=== PATIENT | female | born 1980 | race Hispanic/Latino ===

== ENCOUNTER 2017-11-09 19:54 | Inpatient (IN) | payer OTHER ==
--- OUTSIDE RECORDS SUMMARY | 2017-11-09 19:57 | XMS REPORT | Clinical Summary ---
:1980 Author Organization [facility] Address [address] [place] [address] Care Team Providers Name Role Phone Amira Joyce Primary Care Provider Allergies No Known Allergies Current Medications Prescription Sig. Disp. Refills Start Date End Date Status metFORMIN Take 1,000 mg by 09/20/2015 Active (GLUCOPHAGE) 1000 MG mouth 2 (two) tablet times a day with meals. midodrine Take 5 mg by Active (PROAMATINE) 5 MG mouth 3 (three) tablet times a day. MULTIVITAMIN WITH Take 1 tablet by Active IRON (HAIR VITAMINS mouth daily. ORAL) MV,CA,MIN/IRON/FA/GUA Take by mouth. Active RANA/CAFF (ONE-A-DAY WOMEN'S ACTIVE ORAL) acetaminophen-codeine Take 1 tablet by 30 tablet 0 05/25/2017 06/24/2017 (TYLENOL WITH CODEINE mouth every 4 #3) 300-30 mg per (four) hours as tablet needed for moderate pain for up to 30 days. ibuprofen Take 1 tablet 30 tablet 0 05/25/2017 06/24/2017 (ADVIL,MOTRIN) 800 MG (800 mg total) tablet by mouth every 6 (six) hours as needed for mild pain for up to 30 days. nitrofurantoin, Take 1 capsule 5 capsule 0 05/25/2017 05/30/2017 macrocrystal-monohydr (100 mg total) ate, (MACROBID) 100 by mouth daily MG capsule for 5 days. Only while you have walters catheter nitrofurantoin, Take 1 capsule 7 capsule 0 05/26/2017 06/02/2017 macrocrystal-monohydr (100 mg total) ate, (MACROBID) 100 by mouth daily MG capsule for 7 days. Active Problems Problem Noted Date Pelvic pain in female 01/15/2016 Urge incontinence 01/07/2016 LLQ abdominal pain 09/25/2015 Urinary incontinence, mixed (Urge predominant) 09/25/2015 History of ovarian cyst 09/25/2015 Encounters Date Type Specialty Care Team Description 06/08/2017 Telephone Obstetrics and Avel, Gynecology Latoya Elise MD 05/27/2017 Clinical Support Urogynecology Lucila, Post-operative state SHAWNA Pennington (Primary Dx) 05/26/2017 Telephone Obstetrics and Avel Gynecology Latoya Elise MD 05/25/2017 Hospital Encounter Obstetrics and Avel, Gynecology Latoya Elise MD 05/25/2017 Procedure Pass Obstetrics and Gynecology 05/25/2017 Surgery Obstetrics and Avel, CYSTO, INSERTION OF Gynecology Latoya Butler MIDURETHRAL SLING, MD Arik RETROPUBIC APPROACH 05/24/2017 Anesthesia Event Obstetrics and Jatzlau, Gynecology [facility], RETAIL ADVISOR 05/24/2017 Telephone Urogynecology Avel, Latoya Elise MD 05/19/2017 Pre-Admit Testing Pre-Admission Avel, Preop testing Appointment Testing Latoya Butler (Primary Dx) MD Arik 05/19/2017 Office Visit Urogynecology Avel, CLIFFORD (stress urinary incontinence, female) (Primary Dx); Latoya Butler Urinary incontinence, mixed MD Arik 05/09/2017 Telephone Urogynecology Aditi Gaytan LVN 04/25/2017 Hospital Encounter Radiology Avel, Mixed stress and urge Latoya Butler urinary incontinence MD Arik 04/25/2017 Office Visit Urogynecology Avel, Mixed stress and urge urinary incontinence (Primary Dx); Latoya Butler Nocturia; MD Arik 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 Sex Assigned at Date Recorded Not on file Last Filed Vital Signs Vital Sign Reading Time Taken Blood Pressure 113/80 05/27/2017 9:12 AM [employer]FT [employer] Pulse 77 05/27/2017 9:12 AM [employer] Temperature 36.5 C (97.7 F) 05/27/2017 9:12 AM [employer] Respiratory Rate 16 05/25/2017 3:50 PM [employer] Oxygen Saturation 98% 05/25/2017 3:50 PM [employer]FT [employer]ER Inhaled Oxygen Concentration - - Weight 88.5 kg (195 lb) 05/27/2017 9:12 AM [employer] Height 162.6 cm (5' 4") 05/27/2017 9:12 AM [employer] Body Mass Index 33.47 05/27/2017 9:12 AM [employer]ER Plan of Treatment Health Maintenance Due Date Last Done Comments PAP SMEAR 1999 INFLUENZA VACCINE 02/08/2018 Implants Implanted Type Area Director Process Engineering Device Expiration Model / Identifier Date Serial / Lot Kit Nurostmltn Lead Tined 4 Elctrd Spaced 3mm 28cm - [id number] Cardiac Pacing N /A: [employer] 11/03/2019 [id number] / Implanted: 01/07/2016 (Quantity not on file) Leads or N/A NEUROMODULATION / Electrodes or [id number] Accessories Verifyexternal Neurostimulator(Includes 1 Belt) - [id number] Neurosurgical N/A: [employer] 12/07/2020 [id number] / Implanted: 01/07/2016 (Quantity not on file) Implants N/A NEUROMODULATION [id number] / [id number] Neurostimulator Imp Interstim Ii [id number] Nrechrgbl - [id number] - [id number] Neurosurgical Right: [employer] [facility] - 04/23/2017 [id number] / Implanted: Qty: 1 on 01/15/2016 by Latoya Vallecillo MD Implants Coccyx NEUROLOGICAL [id number] / [id number] Four Horse Hitch Driver Pt For Sacral Nuromodltn Interstim Icon - [id number] Neurosurgical N/ A: [employer] [facility] - [id number] / Implanted: Qty: 1 on 01/15/2016 by Latoya Vallecillo MD Implants N/A NEUROLOGICAL / Matrix Hmstc Floseal 5ml W/ Humn F2 - [id number] Surgical N/A: [id number] / Implanted: Qty: 1 on 05/25/2017 by Latoya Vallecillo MD Implants ; N/A BIOSCIENCE / Expanders; Extenders; Surgical Wires System Sling Mdurethrl Trnsvagnl Mesh Asmbly Advantage Fit - [id number] Urological N/A: BSC 04/18/2020 [id number] / Implanted: Qty: 1 on 05/25/2017 by Latoya Vallecillo MD Implants or N/A UROLOGY/GYNECOLO / Sets [id number] Procedures Procedure Name Priority Date/Time Associated Diagnosis Comments ANESTHESIA INTUBATION Routine 05/25/2017 12:14 PM [employer]CRAFT LO[employer]LLER Procedure Note - Monika Beaver, ACCOUNT SOLUTIONS ANALYST - 05/25/2017 12:14 PM AIRCRAFT LO[employer] CONTROLLER Airway Performed by: MONIKA BEAVER Authorized by: SUNSHINE CURRIE Location: OR Performed by: anesthesiologist Preoxygenated with 100% O2: Yes C-spine Precautions Maintained Throughout: Yes Mask Ventilation: Easy mask Final Airway Type: Supraglottic airway Final LMA: I-Gel LMA Size: 4 Number of Attempts at Approach: 1 CYSTO, INSERTION OF 05/25/2017 12:00 PM [employer]CRAFT LO[employer] CONTROLLER Mixed incontinence urge and MIDURETHRAL SLING, stress RETROPUBIC APPROACH after 11/08/2016 Results POC glucose (05/25/2017 2:25 PM)Only the most recent of2 resultswithin the time period is included. Component Value Ref Range POC glucose 112 (H) 65 - 99 mg/dL Comment: [facility] Notified RN Meter ID: [id number] Backing In Machine Tender: Moisés Castaneda Specimen Performing Laboratory [facility] DEPARTMENT OF PATHOLOGY AND GENOMIC MEDICINE [address] [place] [address] ECG Pre/Post Op (05/19/2017 1:44 PM) Component Value Ref Range Ventricular rate 75 Atrial rate 75 NH interval 126 QRSD interval 86 QT interval 394 QTC interval 439 P axis 1 44 QRS axis 1 77 T wave axis 20 EKG impression Normal sinus rhythm-Normal ECG-In automated comparison with ECG of 09-SEP-2016 07:10,-No significant change was found- Specimen Performing Laboratory [facility] [address] [place] [address] Urinalysis screen and microscopy, with reflex to culture (05/19/2017 12:29 PM) Component Value Ref Range Specimen site Clean catch Color, UA Straw Appearance, UA Clear Specific gravity, UA 1.015 1.001 - 1.035 pH, UA 5.0 5.0 - 8.5 Protein, UA 2+ (A) Negative Glucose, UA Negative Negative Ketones, UA Negative Negative Bilirubin, UA Negative Negative Blood, UA Negative Negative Nitrite, UA Negative Negative Urobilinogen, UA <2.0 <2.0 Leukocyte esterase, UA Negative Negative Epithelial cells, UA 2 /HPF WBC, UA None seen 0 - 4 /HPF RBC, UA 1 0 - 2 /HPF Bacteria, UA None seen None seen Yeast, UA None seen Yeast with pseudohyphae, UA None seen Specimen Performing Laboratory Urine [facility] DEPARTMENT OF PATHOLOGY AND GENOMIC MEDICINE [address] [place] [address] Estimated GFR (05/19/2017 12:29 PM) Component Value Ref Range GFR Non Af Amer >90 mL/min/1.73 m2 GFR Af Amer >90 mL/min/1.73 m2 Comment: Chronic kidney disease: <60 mL/min/1.73m2 Kidney failure: <15 mL/min/1.73m2 The estimated GFR is calculated from the IDMS-traceable Modification of Diet in Renal Disease Equation. The accuracy of the calculation is poor when the creatinine is normal. Calculated values >90 mL/min/1.73m2 are not reported. This equation has not been validated in children (<18 years), women, the elderly (>70 years), or ethnic groups other than Caucasians and Americans. Specimen Performing Laboratory Plasma specimen [facility] DEPARTMENT OF PATHOLOGY AND GENOMIC MEDICINE [address] [place] [address]178 CBC hemogram (05/19/2017 12:29 PM) Component Value Ref Range WBC 7.00 4.50 - 11.00 k/uL RBC 4.35 4.20 - 5.50 m/uL HGB 13.0 12.0 - 16.0 g/dL HCT 36.9 (L) 37.0 - 47.0 % MCV 84.8 82.0 - 100.0 fL MCH 29.9 27.0 - 34.0 pg MCHC 35.2 31.0 - 37.0 g/dL RDW - SD 41.1 37.0 - 55.0 fL MPV 9.9 8.8 - 13.2 fL Platelet count 211 150 - 400 k/uL Nucleated RBC 0.00 /100 WBC Specimen Performing Laboratory Blood [facility] PATHOLOGY AND [facility] MEDICINE [address] [place], [place] [id number] Urine culture (05/19/2017 12:29 PM) Component Value Ref Range Urine culture SEE COMMENTComment: Bacteriuria screen negative. Specimen Performing Laboratory Urine [facility] PATHOLOGY AND [facility] MEDICINE [address] [place] [address] Hemoglobin A1c (05/19/2017 12:29 PM) Component Value Ref Range Hemoglobin A1C 7.1 (H) 4.0 - 5.6 % Comment: HbA1c cutoffs for diagnosing diabetes: 4.0% - 5.6%=normal 5.7% - 6.4%=increased risk for diabetes (prediabetes) >=6.5%=diabetes Goals for glycemic control (ADA 2016) < 7.0%Target for non adults with diabetes. More or less stringent targets may be appropriate for individual patients. <7.5% Target for Children and adolescents with type 1 diabetes. Specimen Performing Laboratory Blood [facility] PATHOLOGY AND [address] [address] Basic metabolic panel (05/19/2017 12:29 PM) Component Value Ref Range Sodium 134 (L) 135 - 148 mEq/L Potassium 3.9 3.5 - 5.0 mEq/L Chloride 94 (L) 98 - 112 mEq/L CO2 21 (L) 24 - 31 mEq/L Anion gap 19 (H) 7 - 15 mEq/L Comment: Starting from October , anion gap calculation no longer incorporates potassium. Please note the change. BUN 17 6 - 20 mg/dL Creatinine 0.6 0.5 - 0.9 mg/dL Glucose 183 (H) 65 - 99 mg/dL Calcium 9.5 8.3 - 10.2 mg/dL Specimen Performing Laboratory Plasma specimen [facility] DEPARTMENT OF PATHOLOGY AND [facility] MEDICINE [address] [place] [address] XR Sacrum And Coccyx (04/25/2017 11:10 AM) Specimen [facility]forming [facility] [address] [place] [address] Narrative EXAMINATION:XR SACRUM AND COCCYX 3 views CLINICAL HISTORY:N39.46 Mixed incontinence, Interstim Lead position COMPARISON:None. FINDINGS: 1. There are postop changes with nerve stimulator wire projected in the area of the right S3 sacral foramen. The electrodes are projected just anterior to the sacrum. The electronic unit projects over the buttock on the right side. 2.There is no other significant finding. IMPRESSION: Postoperative changes as described above. [facility]-[id number] Procedure Note Hm Interface, Radiology Results Incoming - 04/25/2017 11:40 AM CDT EXAMINATION: XR SACRUM AND COCCYX 3 views CLINICAL HISTORY: N39.46 Mixed incontinence, Interstim Lead position COMPARISON: None. FINDINGS: 1. There are postop changes with nerve stimulator wire projected in the area of the right S3 sacral foramen. The electrodes are projected just anterior to the sacrum. The electronic unit projects over the buttock on the right side. 2. There is no other significant finding. IMPRESSION: Postoperative changes as described above. [facility]-[id number] after 11/08/2016 Insurance Payer Benefit Plan / Group Subscriber ID Type Phone Address [facility] UMR-[id number] MULTISTATE IEBP xxxxxxxxxxxx PPO
[2017-11-09] MEDS ORDERED: CIPROFLOXACIN 400mg IV 400 MG/200 ML BAG IV ONE (22:11)
[2017-11-09] MEDS ORDERED: NA CHLORIDE 0.9% 1,000 ML ONE ×2 (22:11→23:35)
[2017-11-09] MEDS ORDERED: FENTANYL CITR 100 MCG/2 ML ONE (22:11)
[2017-11-09] MEDS ORDERED: ONDANSETRON 4 MG/2 ML VIAL ONE (22:11)
[2017-11-09] MEDS ORDERED: FAMOTIDINE 20 MG/2 ML VIAL IV ONE (22:11)
[2017-11-09] MEDS ORDERED: METRONIDAZOLE 500mg IVPB 500 MG/100 ML BAG IV ONE (22:12)
[2017-11-09 22:37] LABS: Absolute Lymphocytes (CBC) 2.9 K/uL (0.7-4.9); Absolute Monocytes 0.5 K/uL (0.1-1.3); Absolute Neutrophil 3.9 K/uL (1.8-8.0); Basophils % 0.6 % (0-1.3); Eosinophils % 2.4 % (0-4.4); Hematocrit 36.8 % (36.0-45.0); Lymphocytes % 38.7 % (15.3-44.8); MCH 28.1 pg (27.0-35.0); MCV 83.8 fL (80-100); MPV 7.8 fL (7.6-11.3); Monocytes % 6.5 % (3.3-12.3); RBC Red Blood Cell Count 4.39 M/uL (3.86-4.86)
[2017-11-09 22:43] LABS: Protime INR 0.97
--- NOTE | 2017-11-09 22:51 | ER ---
Nurse's Notes [facility] Name: Valentina Franco Age: 37 yrs Sex: Female : 1980 Arrival Date: 11/09/2017 Time: 19:55 Bed 7 Private MD: Diagnosis: Abdominal tenderness;Vomiting;Acute pancreatitis-history;Hypokalemia;Other ovarian cysts;Diverticular disease of intestine;Type 2 diabetes mellitus;Hyperlipidemia, unspecified-hypertriglyceridemia Presentation: 11/09 20:13 Presenting complaint: Patient states: Epigastric pain that started yesterday. aj Transition of care: patient was not received from another setting of care. Onset of symptoms was November 08, 2017. Initial Sepsis Screen: Does the patient meet any 2 criteria? No. Patient's initial sepsis screen is negative. Does the patient have a suspected source of infection? No. Patient's initial sepsis screen is negative. Care prior to arrival: None. 20:13 Method Of Arrival: Ambulatory aj 20:13 Acuity: CYNTHIA 3 aj Triage Assessment: 20:15 General: Appears in no apparent distress. comfortable, Behavior is calm, cooperative, aj appropriate for age. Pain: Complains of pain in epigastric area Pain currently is 9 out of 10 on a pain scale. Neuro: Level of Consciousness is awake, alert, obeys commands, Oriented to person, place, time, situation, Appropriate for age. Respiratory: Airway is patent Respiratory effort is even, unlabored, Respiratory pattern is regular, symmetrical. GI: Abdomen is flat, non-distended, Reports nausea. Derm: Skin is intact, is healthy with good turgor, Skin is pink, warm \\T\\ dry. normal. SHOP FITTER: 20:15 LMP 09/24/2017 aj Historical: - Allergies: 20:15 No Known Allergies; aj - Home Meds: 20:15 metformin 1,000 mg Oral tr24 1 tab once daily for Type 2 Diabetes Mellitus [Active]; aj "faxiga" [Active]; - PMHx: 20:15 Depression; Diabetes - NIDDM; heart problems; High Cholesterol; aj - PSHx: 20:15 Cholecystectomy; Tonsillectomy; ; aj - Immunization history:: Adult Immunizations up to date. - Social history:: Smoking status: Patient/guardian denies using tobacco. - Family history:: not pertinent. Screenin:05 Abuse screen: Denies threats or abuse. Nutritional screening: No deficits noted. tl2 Tuberculosis screening: No symptoms or risk factors identified. Fall Risk None identified. Assessment: 22:05 General: Appears in no apparent distress. uncomfortable, Behavior is calm, cooperative, tl2 appropriate for age. General: Pt states pain is similar to last time she had pancreatitis. Pain: Complains of pain in epigastric area Pain does not radiate. Neuro: Level of Consciousness is awake, alert, obeys commands, Oriented to person, place, time, situation. Cardiovascular: Denies chest pain. Respiratory: Airway is patent Respiratory effort is even, unlabored, Respiratory pattern is regular, symmetrical. GI: Bowel sounds present X 4 quads. Abd is soft Abdomen is tender to palpation in epigastric area. GI: Reports nausea, vomiting. : No signs and/or symptoms were reported regarding the genitourinary system. Derm: Skin is pink, warm \\T\\ dry. 22:58 Reassessment: Patient appears in no apparent distress at this time. Patient and/or tl2 family updated on plan of care and expected duration. Pain level reassessed. Patient is alert, oriented x 3, equal unlabored respirations, skin warm/dry/pink. Pt finished contrast at 2230, CT notified. 11/10 07:00 General: Appears in no apparent distress. uncomfortable, Behavior is calm, cooperative, hj appropriate for age. Pain: Complains of pain in left upper quadrant and right upper quadrant and epigastric area Pain does not radiate. Neuro: Level of Consciousness is awake, alert, obeys commands, Oriented to person, place, time, situation. Cardiovascular: Denies chest pain. Respiratory: Airway is patent Respiratory effort is even, unlabored, Respiratory pattern is regular, symmetrical. GI: Bowel sounds present X 4 quads. Abd is soft Abdomen is tender to palpation Reports nausea, vomiting. : No signs and/or symptoms were reported regarding the genitourinary system. EENT: No signs and/or symptoms were reported regarding the EENT system. Derm: Skin is intact, Skin is pink, warm \\T\\ dry. Musculoskeletal: No signs and/or symptoms reported regarding the musculoskeletal system. Vital Signs: 11/09 20:15 BP 114 / 77; Pulse 100; Resp 18; Temp 98.0; Pulse Ox 97% on R/A; Weight 90.26 kg; aj Height 5 ft. 4 in. (162.56 cm); Pain 9/10; 23:17 BP 103 / 69; Pulse 67; Resp 18; Pulse Ox 99% on R/A; tl2 11/10 00:42 BP 128 / 88; Pulse 75; Resp 18; Pulse Ox 99% on R/A; mt 08:45 BP 96 / 59; Pulse 72; Resp 17; Pulse Ox 98% on R/A; mw2 11/09 20:15 Body Mass Index 34.16 (90.26 kg, 162.56 cm) aj ED Course: 11/09 19:55 Patient arrived in ED. am2 20:14 Triage completed. aj 20:15 Arm band placed on left wrist. Patient placed in waiting room. aj 21:35 Johan Giron MD is Attending Physician. [facility] 22:05 Lucila Ospina, PETE is Primary Nurse. tl2 22:05 Patient has correct armband on for positive identification. Bed in low position. Call tl2 light in reach. Side rails up X 1. 22:05 Inserted saline lock: 20 gauge in right antecubital area, using aseptic technique. tl2 Blood collected. 22:41 X-ray completed. Portable x-ray completed in exam room. Patient tolerated procedure kc2 well. 22:46 XRAY Chest (1 view) In Process Unspecified. EDMS 22:49 Symone Romano MD is Hospitalizing Provider. [facility] 11/10 04:23 No provider procedures requiring assistance completed. Patient admitted, IV remains in tl2 place. Administered Medications: 11/09 22:20 Drug: NS 0.9% 1000 ml Route: IV; Rate: 1 bolus; Site: right antecubital; tl2 23:41 Follow up: IV Status: Completed infusion; IV Intake: 1000ml tl2 22:20 Drug: fentaNYL (PF) 50 mcg Route: IVP; Site: right antecubital; tl2 23:00 Follow up: Response: No adverse reaction; Pain is decreased tl2 22:20 Drug: Zofran 4 mg Route: IVP; Site: right antecubital; tl2 23:00 Follow up: Response: No adverse reaction; Nausea is decreased tl2 22:20 Drug: Pepcid 20 mg Route: IVP; Site: right antecubital; tl2 23:45 Follow up: Response: No adverse reaction tl2 22:20 Drug: Flagyl 500 mg Volume: 100 ml; Route: IVPB; Rate: 200 ml/hr; Infused Over: 30 tl2 mins; Site: right antecubital; 23:40 Follow up: IV Status: Completed infusion tl2 23:41 Drug: Cipro 400 mg Volume: 200 ml; Route: IVPB; Infused Over: 60 mins; Site: right tl2 antecubital; 11/10 00:58 Follow up: IV Status: Completed infusion tl2 11/09 23:41 Drug: NS 0.9% 1000 ml Route: IV; Rate: 1 bolus; Site: right antecubital; tl2 11/10 00:58 Follow up: IV Status: Completed infusion; IV Intake: 1000ml tl2 02:53 Not Given (canceled by Hospitalist): NS 0.9% with KCl 20 mEq/L 1000 ml IV at 125 ml/hr tl2 continuous Point of Care Testing: Blood Glucose: 10:00 Blood Glucose: 93 mg/dL; hb Ranges: Intake: 11/09 23:41 IV: 1000ml; Total: 1000ml. tl2 11/10 00:58 IV: 1000ml; Total: 2000ml. tl2 Outcome: 11/09 22:50 Decision to Hospitalize by Provider. [facility] 11/10 04:23 Admitted to ER Hold. Please see [facility] for further documentation. tl2 Condition: stable Discharge instructions given to patient, Instructed on the need for admit. 14:26 Patient left the ED. hb Signatures: Dispatcher [employer] EDAshley Mcfarland, RN Johan Huff MD MD cha Joaquin, Henry, RN RN hj Baxter, Heather, RN RN hb Carr, Kelsie kc2 Lucila Ospina RN RN 2 Ashley Diaz am Paola Lau nv LomiraElena ramirez 2
--- NOTE | 2017-11-09 22:51 | EDPHYS ---
Physician Documentation [facility] Name: Valentina Franco Age: 37 yrs Sex: Female : 1980 Arrival Date: 11/09/2017 Time: 19:55 Bed 7 Private MD: Johan Larson HPI: 11/09 22:46 This 37 yrs old Female presents to ER via Ambulatory with complaints of young Abdominal Pain. 22:46 The patient presents with abdominal pain in the epigastric area, in the upper abdomen. young Onset: The symptoms/episode began/occurred 3 day(s) ago. The patient presents to the emergency department with nausea, vomiting, abdominal pain, of the epigastric area, right upper quadrant and left upper quadrant. Onset: The symptoms/episode began/occurred 1 day(s) ago. Possible causes: unknown. The symptoms are aggravated by nothing. The symptoms are alleviated by nothing. Associated signs and symptoms: The patient has no apparent associated signs or symptoms. STONEHAND: 20:15 LMP 09/24/2017 aj Historical: - Allergies: 20:15 No Known Allergies; aj - Home Meds: 20:15 metformin 1,000 mg Oral tr24 1 tab once daily for Type 2 Diabetes Mellitus [Active]; aj "faxiga" [Active]; - PMHx: 20:15 Depression; Diabetes - NIDDM; heart problems; High Cholesterol; aj - PSHx: 20:15 Cholecystectomy; Tonsillectomy; ; aj - Immunization history:: Adult Immunizations up to date. - Social history:: Smoking status: Patient/guardian denies using tobacco. - Family history:: not pertinent. ROS: 22:46 Constitutional: Negative for fever, chills, and weight loss, Eyes: Negative for injury, young pain, redness, and discharge, ENT: Negative for injury, pain, and discharge, Neck: Negative for injury, pain, and swelling, Cardiovascular: Negative for chest pain, palpitations, and edema, Respiratory: Negative for shortness of breath, cough, wheezing, and pleuritic chest pain, Back: Negative for injury and pain, : Negative for injury, bleeding, discharge, and swelling, MS/Extremity: Negative for injury and deformity, Skin: Negative for injury, rash, and discoloration, Neuro: Negative for headache, weakness, numbness, tingling, and seizure, Psych: Negative for depression, anxiety, suicide ideation, homicidal ideation, and hallucinations, Allergy/Immunology: Negative for hives, rash, and allergies, Endocrine: Negative for neck swelling, polydipsia, polyuria, polyphagia, and marked weight changes, Hematologic/Lymphatic: Negative for swollen nodes, abnormal bleeding, and unusual bruising. 22:46 Abdomen/GI: Positive for abdominal pain, nausea and vomiting, nausea, vomiting, of the epigastric area, right upper quadrant and left upper quadrant. Exam: 22:46 Constitutional: This is a well developed, well nourished patient who is awake, alert, young and in no acute distress. Head/Face: Normocephalic, atraumatic. Eyes: Pupils equal round and reactive to light, extra-ocular motions intact. Lids and lashes normal. Conjunctiva and sclera are non-icteric and not injected. Cornea within normal limits. Periorbital areas with no swelling, redness, or edema. ENT: Nares patent. No nasal discharge, no septal abnormalities noted. Tympanic membranes are normal and external auditory canals are clear. Oropharynx with no redness, swelling, or masses, exudates, or evidence of obstruction, uvula midline. Mucous membranes moist. Neck: Trachea midline, no thyromegaly or masses palpated, and no cervical lymphadenopathy. Supple, full range of motion without nuchal rigidity, or vertebral point tenderness. No Meningismus. Chest/axilla: Normal chest wall appearance and motion. Nontender with no deformity. No lesions are appreciated. Cardiovascular: Regular rate and rhythm with a normal S1 and S2. No gallops, murmurs, or rubs. Normal PMI, no JVD. No pulse deficits. Respiratory: Lungs have equal breath sounds bilaterally, clear to auscultation and percussion. No rales, rhonchi or wheezes noted. No increased work of breathing, no retractions or nasal flaring. Back: No spinal tenderness. No costovertebral tenderness. Full range of motion. Female : Normal external genitalia. Skin: Warm, dry with normal turgor. Normal color with no rashes, no lesions, and no evidence of cellulitis. MS/ Extremity: Pulses equal, no cyanosis. Neurovascular intact. Full, normal range of motion. Neuro: Awake and alert, GCS 15, oriented to person, place, time, and situation. Cranial nerves II-XII grossly intact. Motor strength 5/5 in all extremities. Sensory grossly intact. Cerebellar exam normal. Normal gait. Psych: Awake, alert, with orientation to person, place and time. Behavior, mood, and affect are within normal limits. 22:46 Abdomen/GI: Inspection: abdomen appears normal, Bowel sounds: normal, Palpation: mild abdominal tenderness, moderate abdominal tenderness, in the epigastric area, right upper quadrant and left upper quadrant, Liver: no appreciated palpable abnormalities, Hernia: not appreciated. Vital Signs: 20:15 BP 114 / 77; Pulse 100; Resp 18; Temp 98.0; Pulse Ox 97% on R/A; Weight 90.26 kg; aj Height 5 ft. 4 in. (162.56 cm); Pain 9/10; 23:17 BP 103 / 69; Pulse 67; Resp 18; Pulse Ox 99% on R/A; tl2 11/10 00:42 BP 128 / 88; Pulse 75; Resp 18; Pulse Ox 99% on R/A; mt 08:45 BP 96 / 59; Pulse 72; Resp 17; Pulse Ox 98% on R/A; mw2 11/09 20:15 Body Mass Index 34.16 (90.26 kg, 162.56 cm) aj MDM: 11/09 21:35 Patient medically screened. [facility] 22:46 Data reviewed: vital signs, nurses notes, lab test result(s), EKG, radiologic studies, [facility] scan, plain films. 11/09 22:04 Order name: Basic Metabolic Panel; Complete Time: 23:31 [facility] 11/09 22:04 Order name: BNP; Complete Time: 23:31 [facility] 11/09 22:04 Order name: CBC with Diff; Complete Time: 22:45 [facility] 11/09 22:04 Order name: Ckmb; Complete Time: 23:31 [facility] 11/09 22:04 Order name: CPK; Complete Time: 23:31 [facility] 11/09 22:04 Order name: LFT's; Complete Time: 23:31 [facility] 11/09 22:04 Order name: Magnesium; Complete Time: 23:31 [facility] 11/09 22:04 Order name: PT-INR; Complete Time: 23:31 [facility] 11/09 22:04 Order name: Ptt, Activated; Complete Time: 23:31 [facility] 11/09 22:04 Order name: Troponin (emerg Dept Use Only); Complete Time: 23:31 [facility] 11/09 22:04 Order name: Lipase; Complete Time: 23:31 [facility] 11/09 23:35 Order name: Urine Dipstick--Ancillary (enter results) rg2 11/09 23:35 Order name: Urine --Ancillary (enter results) rg2 11/10 00:24 Order name: Lipid Profile [facility] 11/10 01:57 Order name: Lipid Profile EDNY 11/10 02:01 Order name: Urine --Ancillary; Complete Time: 02:16 EDMS 11/10 02:01 Order name: Urine Dipstick-Ancillary; Complete Time: 02:16 EDMS 11/10 02:17 Order name: LDL, Direct EDMS 05 08:44 Order name: Triglycerides Level EDMS 11/10 09:28 Order name: LDL, Direct EDMS 05 10:24 Order name: Glucose, Ancillary Testing EDMS 11/10 10:24 Order name: Glucose, Ancillary Testing EDMS 11/10 10:24 Order name: Glucose, Ancillary Testing EDMS 11/10 10:24 Order name: Glucose, Ancillary Testing EDMS 11/10 10:24 Order name: Glucose, Ancillary Testing EDMS 11/10 10:24 Order name: Glucose, Ancillary Testing EDMS 11/10 10:24 Order name: Glucose, Ancillary Testing EDMS 11/10 10:24 Order name: Glucose, Ancillary Testing EDMS 11/10 11:06 Order name: Glucose, Ancillary Testing EDMS 11/10 12:03 Order name: Triglycerides Level EDMS 11/09 22:04 Order name: XRAY Chest (1 view); Complete Time: 23:31 [facility] 11/09 22:04 Order name: EKG; Complete Time: 22:05 [facility] 11/09 22:04 Order name: Cardiac monitoring; Complete Time: 22:20 [facility] 11/09 22:04 Order name: EKG - Nurse/Tech; Complete Time: 22:20 [facility] 11/09 22:04 Order name: IV Saline Lock; Complete Time: 22:20 [facility] 11/09 22:04 Order name: Labs collected and sent; Complete Time: 22:20 [facility] 11/09 22:04 Order name: O2 Per Protocol; Complete Time: 22:20 [facility] 11/09 22:04 Order name: O2 Sat Monitoring; Complete Time: 22:20 [facility] 11/09 22:04 Order name: Urine Dipstick-Ancillary (obtain specimen); Complete Time: 23:19 [facility] 11/09 22:04 Order name: CT Abd/Pelvis - W/Contrast [facility] 11/09 22:53 Order name: CONS Physician Consult [facility] 11/10 08:46 Order name: CT [facility] 11/10 12:24 Order name: LDL, Direct [facility]NY 11/10 13:12 Order name: Glucose, Ancillary Testing [facility] 11/10 14:14 Order name: Glucose, Ancillary Testing [facility]NY Administered Medications: 22:20 Drug: NS 0.9% 1000 ml Route: IV; Rate: 1 bolus; Site: right antecubital; tl2 23:41 Follow up: IV Status: Completed infusion; IV Intake: 1000ml tl2 22:20 Drug: fentaNYL (PF) 50 mcg Route: IVP; Site: right antecubital; tl2 23:00 Follow up: Response: No adverse reaction; Pain is decreased tl2 22:20 Drug: Zofran 4 mg Route: IVP; Site: right antecubital; tl2 23:00 Follow up: Response: No adverse reaction; Nausea is decreased tl2 22:20 Drug: Pepcid 20 mg Route: IVP; Site: right antecubital; tl2 23:45 Follow up: Response: No adverse reaction tl2 22:20 Drug: Flagyl 500 mg Volume: 100 ml; Route: IVPB; Rate: 200 ml/hr; Infused Over: 30 tl2 mins; Site: right antecubital; 23:40 Follow up: IV Status: Completed infusion tl2 23:41 Drug: Cipro 400 mg Volume: 200 ml; Route: IVPB; Infused Over: 60 mins; Site: right tl2 antecubital; 11/10 00:58 Follow up: IV Status: Completed infusion tl2 11/09 23:41 Drug: NS 0.9% 1000 ml Route: IV; Rate: 1 bolus; Site: right antecubital; tl2 11/10 00:58 Follow up: IV Status: Completed infusion; IV Intake: 1000ml tl2 02:53 Not Given (canceled by Hospitalist): NS 0.9% with KCl 20 mEq/L 1000 ml IV at 125 ml/hr tl2 continuous Point of Care Testing: Blood Glucose: 10:00 Blood Glucose: 93 mg/dL; hb Ranges: Critical Glucose Levels:Adult <50 mg/dl or >400 mg/dl <40 mg/dl or >180 mg/dl Disposition: 11/09/17 22:50 Hospitalization ordered by Symone Romano for Inpatient Admission. Preliminary diagnosis are Abdominal tenderness, Vomiting, Acute pancreatitis - history, Hypokalemia, Other ovarian cysts, Diverticular disease of intestine, Type 2 diabetes mellitus, Hyperlipidemia, unspecified - hypertriglyceridemia. - Bed requested for Intensive Care Unit. - Status is Inpatient Admission. hb - Condition is Fair. - Problem is new. - Symptoms have improved. UTI on Admission? No Signatures: Dispatcher [employer] EDMS Pal Dykes rg2 Katharina Astorga RN RN kl Myers, Amanda, RN RN aj Anderson, Corey, MD MD cha Gallardo, Ana ag Baxter, Heather, RN RN hb Knox, Taylor, RN RN tl2 Corrections: (The following items were deleted from the chart) 11/09 23:32 22:50 Hospitalization Ordered by Symone Romano MD for Inpatient Admission. Preliminary [facility] diagnosis is Abdominal tenderness; Vomiting; Acute pancreatitis. Bed requested for Telemetry/MedSurg (Inpatient). Status is Inpatient Admission. Condition is Fair. Problem is new. Symptoms have improved. UTI on Admission? No. young 11/10 00:08 11/09 23:32 11/09/2017 22:50 Hospitalization Ordered by Symone Romano MD for Inpatient kl Admission. Preliminary diagnosis is Abdominal tenderness; Vomiting; Acute pancreatitis - history; Hypokalemia. Bed requested for Telemetry/MedSurg (Inpatient). Status is Inpatient Admission. Condition is Fair. Problem is new. Symptoms have improved. UTI on Admission? No. young 11/10 01:14 00:08 11/09/2017 22:50 Hospitalization Ordered by Symone Romano MD for Inpatient young Admission. Preliminary diagnosis is Abdominal tenderness; Vomiting; Acute pancreatitis - history; Hypokalemia. Bed requested for Telemetry/MedSurg (Inpatient). Status is Inpatient Admission. Condition is Fair. Problem is new. Symptoms have improved. UTI on Admission? No. beny 01:24 01:14 11/09/2017 22:50 Hospitalization Ordered by Symone Romano MD for Inpatient young Admission. Preliminary diagnosis is Abdominal tenderness; Vomiting; Acute pancreatitis - history; Hypokalemia; Other ovarian cysts; Diverticular disease of intestine. Bed requested for Telemetry/MedSurg (Inpatient). Status is Inpatient Admission. Condition is Fair. Problem is new. Symptoms have improved. UTI on Admission? No. young 02:17 01:24 11/09/2017 22:50 Hospitalization Ordered by Symone Romano MD for Inpatient young Admission. Preliminary diagnosis is Abdominal tenderness; Vomiting; Acute pancreatitis - history; Hypokalemia; Other ovarian cysts; Diverticular disease of intestine; Type 2 diabetes mellitus. Bed requested for Telemetry/MedSurg (Inpatient). Status is Inpatient Admission. Condition is Fair. Problem is new. Symptoms have improved. UTI on Admission? No. young 02:19 02:17 11/09/2017 22:50 Hospitalization Ordered by Symone Romano MD for Inpatient young Admission. Preliminary diagnosis is Abdominal tenderness; Vomiting; Acute pancreatitis - history; Hypokalemia; Other ovarian cysts; Diverticular disease of intestine; Type 2 diabetes mellitus. Bed requested for Intensive Care Unit. Status is Inpatient Admission. Condition is Fair. Problem is new. Symptoms have improved. UTI on Admission? No. young 02:21 02:19 11/09/2017 22:50 Hospitalization Ordered by Symone Romano MD for Inpatient rg2 Admission. Preliminary diagnosis is Abdominal tenderness; Vomiting; Acute pancreatitis - history; Hypokalemia; Other ovarian cysts; Diverticular disease of intestine; Type 2 diabetes mellitus; Hyperlipidemia, unspecified - hypertriglyceridemia. Bed requested for Intensive Care Unit. Status is Inpatient Admission. Condition is Fair. Problem is new. Symptoms have improved. UTI on Admission? No. young 14:00 02:21 11/09/2017 22:50 Hospitalization Ordered by Symone Romano MD for Inpatient ag Admission. Preliminary diagnosis is Abdominal tenderness; Vomiting; Acute pancreatitis - history; Hypokalemia; Other ovarian cysts; Diverticular disease of intestine; Type 2 diabetes mellitus; Hyperlipidemia, unspecified - hypertriglyceridemia. Bed requested for [facility] ER HOLD. Status is Inpatient Admission. Condition is Fair. Problem is new. Symptoms have improved. UTI on Admission? No. rg2 14:26 14:00 11/09/2017 22:50 Hospitalization Ordered by Symone Romano MD for Inpatient hb Admission. Preliminary diagnosis is Abdominal tenderness; Vomiting; Acute pancreatitis - history; Hypokalemia; Other ovarian cysts; Diverticular disease of intestine; Type 2 diabetes mellitus; Hyperlipidemia, unspecified - hypertriglyceridemia. Bed requested for Intensive Care Unit. Status is Inpatient Admission. Condition is Fair. Problem is new. Symptoms have improved. UTI on Admission? No. ag
[2017-11-09] MEDS ORDERED: GLUCAGON 1 MG/VIAL IM PRN (22:53)
--- NOTE | 2017-11-09 22:55 | RAD REPORT ---
EXAM DESCRIPTION: RAD - Chest Single View - 11/09/2017 10:47 pm CLINICAL HISTORY: Chest and abdomen pain COMPARISON: 08/21/2017 FINDINGS: Portable technique limits examination quality. The lungs are grossly clear. The heart is normal in size. No displaced fractures. IMPRESSION: No acute intrathoracic process suspected.
[2017-11-09 23:05] LABS: ALT/SGPT 22 IU/L (10-60); AST/SGOT 18 IU/L (10-42); Alkaline Phosphatase 42 IU/L (42-121); BUN Blood Urea Nitrogen 26 mg/dL (6-20); Bicarbonate 20 mEq/L (21-31); Bilirubin Direct < 0.1 mg/dL (0-0.2); Bilirubin Total 1.4 mg/dL (0.3-1.2); CKMB Creatine Kinase MB 1.1 ng/ml (0.3-4.0); Creatine Phosphokinase 56 IU/L (22-269); Glucose Level 238 mg/dL (65-120); Lipase 45 U/L (22-51); Potassium 3.2 mEq/L (3.6-5.0); Protein, Total 7.3 g/dL (6.0-8.3); Sodium Level 132 mEq/L (135-145)
[2017-11-10] MEDS ORDERED: ONDANSETRON 4 MG/2 ML VIAL IV ONE (01:02)
[2017-11-10 01:54] LABS: HDL Cholesterol 30 mg/dL (29-89)
[2017-11-10 01:56] LABS: LDL Cholesterol, Calculated ND (<130)
[2017-11-10 02:00] LABS: Urine Blood TRACE (NEG); Urine Glucose 2+ (NEG); Urine Protein TRACE (NEG); Urine pH 5.5 (5.0-7.0)
[2017-11-10] MEDS ORDERED: NS KCL 20MEQ 20 MEQ/1,000 ML BAG IV SCH (02:00)
[2017-11-10] MEDS: NA CHLORIDE 0.9% 1,000 ML IV SCH ×2 (02:00→12:00)
[2017-11-10 02:17] LABS: LDL, Direct 21 mg/dl (<130)
[2017-11-10] MEDS ORDERED: INSULIN -REGULAR HUMAN 50 UNIT/0.5 ML ML ONE ×2 (02:33→21:01)
[2017-11-10] MEDS ORDERED: NA CHLORIDE 0.9% 100 ML IV ONE (02:33)
[2017-11-10] MEDS ORDERED: D5 0.9 NS 1,000 ML IV ONE ×2 (02:42→13:14)
[2017-11-10] MEDS: INSULIN -REGULAR HUMAN 100 UNIT in NA CHLORIDE 0.9% 100 ML IV SCH ×3 (02:54→21:30)
--- NOTE | 2017-11-10 03:02 | P.HP ---
Certification for Inpatient Patient admitted to: Inpatient With expected LOS: >2 Midnights Practitioner: I am a practitioner with admitting privileges, knowledge of patient current condition, hospital course, and medical plan of care. Services: Services provided to patient in accordance with Admission requirements found in Title 42 Section 412.3 of the Code of Federal Regulations Patient History Date of Service: 11/10/17 Reason for admission: pancreatitis History of Present Illness: Ms Franco is a 37 years old with history of DM II, hypertriglyceridemia induce pancreatitis, who start yesterday with severe abdominal pain. The pain is localized in her LUQ, it is constant associated with nausea and vomiting, intensity 10/10. She states that had fever at home. In ED temp was normal. Lab work shows normal WBC count, but triglycerides significantly elevated, 2140. She states that is taking Fenofibrate as indicated. Allergies No Known Allergies Allergy (Verified 09/16/17 03:51) Home Medications: Metformin HCl 1,000 mg PO BID 09/16/17 Fenofibrate [Tricor*] 145 mg PO DAILY #30 tab 09/19/17 - Past Medical/Surgical History Diabetic: Yes -: DIABETIC TYPE II -: CHOLESTEROL -: DEPRESSION -: hernia repair -: heart ablation -: broke foot -: tonsillectomy -: KATTY -: X3 - Family History Mother -: Diabetes - Social History Smoking Status: Never smoker Alcohol use: No CD- Drugs: No Caffeine use: Yes Place of Residence: Home Review of Systems 10-point ROS is otherwise unremarkable Physical Examination - Physical Exam General: Alert, In no apparent distress HEENT: Atraumatic, PERRLA, Mucous membr. moist/pink, EOMI, Sclerae nonicteric Neck: Supple, 2+ carotid pulse no bruit, No LAD, Without JVD or thyroid abnormality Respiratory: Clear to auscultation bilaterally, Normal air movement Cardiovascular: Regular rate/rhythm, Normal S1 S2 Gastrointestinal: Normal bowel sounds, Tenderness (LUQ) Musculoskeletal: No tenderness Integumentary: No rashes Neurological: Normal speech, Normal strength at 5/5 x4 extr, Normal tone, Normal affect Lymphatics: No axilla or inguinal lymphadenopathy - Studies Laboratory Data (last 24 hrs) 11/09/17 22:00: PT 11.5, INR 0.97, APTT 24.7 11/09/17 22:00: WBC 7.6, Hgb 12.3, Hct 36.8, Plt Count 261 11/09/17 22:00: B-Natriuretic Peptide < 10 11/09/17 22:00: Sodium 132 L, Potassium 3.2 L, BUN 26 H, Creatinine 1.00, Glucose 238 H, Magnesium 2.0, Total Bilirubin 1.4 H, AST 18, ALT 22, Alkaline Phosphatase 42, Lipase 45 Assessment and Plan - Problems (Diagnosis) (1) Hypertriglyceridemia Current Visit: Yes Status: Acute (2) pancreatitis due to hypertriglyceridemia Current Visit: Yes Status: Acute - Plan The patient will be admitted to the hospital due to hypertriclyceridemia induce pancreatitis. CT report is pending, lipase normal, however, typical clinical presentation. Triglyceride level 2100's. Will order insulin drip to decreases triglyceride level below 1000, ideally bellow 500. Will resume fenofibrate. Will keep the patient NPO, start D5NS continuous infusion. - Advance Directives Does patient have a Living Will: No Does patient have a Durable POA for Healthcare: No - Code Status/Comfort Care Code Status Assessed: Yes Code Status: Full Code Critical Care: Yes (30 minutes critical care management)
[2017-11-10] MEDS ORDERED: D5 0.9 NS 1,000 ML IV SCH (04:00)
--- NOTE | 2017-11-10 06:40 | EKG ---
Test Date: 2017-11-09 Test Time: 22:15:06 Racket Stringer: MICHAEL MEASUREMENT RESULTS: Intervals: Rate: 73 MN: 160 QRSD: 90 QT: 390 QTc: 429 Darrow: P: 52 MN: 160 QRS: 79 T: 47 INTERPRETIVE STATEMENTS: Normal sinus rhythm Normal ECG Compared to ECG 08/21/2017 18:26:50 Sinus tachycardia no longer present Electronically Signed On 11-10-17 06:39:01 CDT by Tres Salazar
[2017-11-10] MEDS ORDERED: INSULIN -REGULAR HUMAN 50 UNIT/0.5 ML ML SQ SCH (07:30)
[2017-11-10] MEDS ORDERED: MORPHINE 4 MG/ML SYR IV PRN (07:48)
[2017-11-10] MEDS ORDERED: ENOXAPARIN 40 MG/0.4 ML SQ ONE (07:58)
[2017-11-10] MEDS: ENOXAPARIN 40 MG/0.4 ML SQ SCH (08:02)
--- NOTE | 2017-11-10 08:45 | RAD REPORT ---
EXAM DESCRIPTION: CTAbdomen Pelvis W Contrast - 11/10/2017 8:37 am CLINICAL HISTORY: Abdominal pain. COMPARISON: 09/15/2017, 08/21/2017 TECHNIQUE: Biphasic CT imaging of the abdomen and pelvis was performed with 100 ml non-ionic IV cont rast. All CT scans are performed using dose optimization technique as appropriate and may include automated exposure control or mA/KV adjustment according to patient size. FINDINGS: The lung bases are clear. Diffuse fatty liver infiltration is noted. Cholecystectomy clips are seen. The spleen, pancreas, adre nal glands and kidneys are within normal limits. No bowel obstruction, free air, free fluid or abscess. Sigmoid diverticulosis coli is present without diverticulitis. The appendix is normal. No evidence of significant lymphadenopathy. No suspicious bony findings. 4 cm right ovarian cyst noted. IMPRESSION: Diffuse fatty liver infiltration. Sigmoid diverticulosis coli without diverticulitis.
[2017-11-10 09:28] LABS: LDL, Direct 19 mg/dl (<130)
[2017-11-10 12:24] LABS: LDL, Direct 39 mg/dl (<130)
[2017-11-10] MEDS ORDERED: ACETAMINOPHEN 500 MG TAB ONE (13:16)
[2017-11-10] MEDS: ACETAMINOPHEN 500 MG TAB PO PRN ×2 (13:57→19:34)
[2017-11-10] MEDS ORDERED: Morphine 2 MG/2 ML SYR IV PRN (15:05)
[2017-11-10 15:18] VITALS: O2SAT 99
[2017-11-10] MEDS ORDERED: Ringers Lactate 500 ML IV ONE (15:33)
[2017-11-10] MEDS: D50W 25 GM/50 ML SYRINGE IV PRN ×5 (16:03→23:00)
[2017-11-10] MEDS: ONDANSETRON 4 MG/2 ML VIAL IV PRN (16:08)
[2017-11-10] MEDS: FENOFIBRATE 160 MG TAB PO SCH (16:08)
[2017-11-10] MEDS ORDERED: POTASSIUM CL SA 10 MEQ TAB PO ONE (16:26)
[2017-11-10] MEDS ORDERED: NA CHLORIDE 0.9% 100 ML ONE (21:01)
[2017-11-10] MEDS: DEXTROSE 10%-WATER 500 ML IV SCH (21:46)
[2017-11-10 23:10] LABS: Potassium 3.2 mEq/L (3.6-5.0)
[2017-11-10] MEDS ORDERED: D50W 25 GM/50 ML SYRINGE IV ONE ×3 (23:10→23:45)
[2017-11-11] MEDS ORDERED: POTASSIUM CL SA 10 MEQ TAB PO ONE ×2 (01:25→10:04)
[2017-11-11] MEDS: D50W 25 GM/50 ML SYRINGE IV PRN ×10 (01:50→22:38)
[2017-11-11] MEDS: DEXTROSE 10%-WATER 500 ML IV SCH ×5 (03:11→22:39)
[2017-11-11] MEDS ORDERED: INSULIN -REGULAR HUMAN 50 UNIT/0.5 ML ML ONE (03:25)
[2017-11-11] MEDS ORDERED: NA CHLORIDE 0.9% 100 ML ONE (03:25)
[2017-11-11] MEDS: INSULIN -REGULAR HUMAN 100 UNIT in NA CHLORIDE 0.9% 100 ML IV SCH ×2 (04:21→08:36)
[2017-11-11 05:40] LABS: Absolute Lymphocytes (CBC) 1.9 K/uL (0.7-4.9); Absolute Monocytes 0.5 K/uL (0.1-1.3); Absolute Neutrophil 2.7 K/uL (1.8-8.0); Basophils % 0.9 % (0-1.3); Eosinophils % 2.5 % (0-4.4); Hematocrit 31.3 % (36.0-45.0); Lymphocytes % 36.1 % (15.3-44.8); MCV 82.8 fL (80-100); MPV 7.5 fL (7.6-11.3); Monocytes % 10.1 % (3.3-12.3); RBC Red Blood Cell Count 3.79 M/uL (3.86-4.86)
[2017-11-11 05:54] LABS: BUN Blood Urea Nitrogen 9 mg/dL (6-20); Bicarbonate 24 mEq/L (21-31); Glucose Level 93 mg/dL (65-120); Potassium 3.3 mEq/L (3.6-5.0); Sodium Level 139 mEq/L (135-145)
[2017-11-11] MEDS ORDERED: D50W 25 GM/50 ML SYRINGE IV ONE (06:44)
[2017-11-11] MEDS: ENOXAPARIN 40 MG/0.4 ML SQ SCH (08:36)
[2017-11-11] MEDS: ONDANSETRON 4 MG/2 ML VIAL IV PRN (08:41)
[2017-11-11] MEDS ORDERED: INSULIN -REGULAR HUMAN 100 UNIT in NA CHLORIDE 0.9% 100 ML IV SCH (09:51)
[2017-11-11] MEDS: ACETAMINOPHEN 500 MG TAB PO PRN (11:26)
--- NOTE | 2017-11-11 11:42 | P.PN ---
Subjective Date of Service: 11/11/17 Chief Complaint: pancreatitis Subjective: Improving (pain better this am. wants to go home), Other (had some nausea but improved with anti emetics, no vomiting) Review of Systems 10-point ROS is otherwise unremarkable Physical Examination - Vital Signs Temperature: 98.6 F Blood Pressure: 94/59 Pulse: 66 Respirations: 14 Pulse Ox (%): 96 - Physical Exam General: Alert, In no apparent distress, Oriented x3 HEENT: Atraumatic, Normocephalic, PERRLA Neck: Supple, JVD not distended, No Thyromegaly, No LAD Respiratory: Clear to auscultation bilaterally, Normal air movement Cardiovascular: No edema, Normal pulses, Regular rate/rhythm, Normal S1 S2 Gastrointestinal: Normal bowel sounds, Soft and benign, Non-distended, W/out hepatosplenomegaly, No tenderness, No masses, No rebound, No guarding Neurological: Normal strength at 5/5 x4 extr Assessment And Plan - Current Problems (Diagnosis) (1) pancreatitis due to hypertriglyceridemia Onset Date: 11/10/17 Current Visit: Yes Status: Acute Plan: Triglyceride level down to ~1000's. continue insulin drip to decreases triglyceride level below below 500. decrease dose to 9units/hr continue fenofibrate. Will keep the patient NPO, start D5NS continuous infusion pain control as needed hypoglycemic protocol Discharge Plan: Home Physician Review: Patient Assessed, Agree with Above Assessment and Plan Time Spent Managing PTS Care (In Minutes): 35
[2017-11-11 12:00] LABS: LDL, Direct 58 mg/dl (<130)
[2017-11-11] MEDS: FENOFIBRATE 160 MG TAB PO SCH (16:36)
[2017-11-11 18:49] VITALS: BMI 36.3
[2017-11-11] MEDS ORDERED: TRAZODONE 50 MG TABLET PO ONE (22:42)
[2017-11-11 23:39] LABS: Potassium 3.3 mEq/L (3.6-5.0)
[2017-11-12] MEDS ORDERED: POTASSIUM CL SA 10 MEQ TAB PO ONE (01:00)
[2017-11-12] MEDS: D50W 25 GM/50 ML SYRINGE IV PRN (04:26)
[2017-11-12] MEDS: DEXTROSE 10%-WATER 500 ML IV SCH ×2 (04:26→08:01)
[2017-11-12 07:15] VITALS: BP 111/76
[2017-11-12] MEDS: ENOXAPARIN 40 MG/0.4 ML SQ SCH (07:59)
[2017-11-12 08:38] VITALS: TEMP 97.6
--- NOTE | 2017-11-12 15:30 | P.DS ---
Admission Date: 11/09/17 Discharge Date: 11/12/17 Disposition: AMA-LEFT AGAINST MEDICAL ADVIC Reason for Admission: pancreatitis - Problems (1) pancreatitis due to hypertriglyceridemia Onset Date: 11/10/17 Status: Acute Brief History of Present Illness: Ms Franco is a 37 years old with history of DM II, hypertriglyceridemia induce pancreatitis, who start yesterday with severe abdominal pain. The pain is localized in her LUQ, it is constant associated with nausea and vomiting, intensity 10/10. She states that had fever at home. In ED temp was normal. Lab work shows normal WBC count, but triglycerides significantly elevated, 2140. She states that is taking Fenofibrate as indicated Hospital Course: Patient was started on insulin drip and her TG levels were monitored.Her symptoms improved significantly.Patient decided to leave the hospital AMA due to family commitment.Risks were explained to her and she stated her understanding and signed AMA Vital Signs/Physical Exam: Temp Pulse Resp BP Pulse Ox 97.6 F 82 13 111/76 98 11/12/17 08:00 11/12/17 08:00 11/12/17 08:00 11/12/17 07:00 11/12/17 07:00 General: Alert, In no apparent distress, Oriented x3 HEENT: Atraumatic, Normocephalic, PERRLA Neck: Supple, JVD not distended, No Thyromegaly, No LAD Respiratory: Clear to auscultation bilaterally, Normal air movement Cardiovascular: No edema, Normal pulses, Regular rate/rhythm, No gallops, No rubs, No murmurs Gastrointestinal: Normal bowel sounds, Soft and benign, W/out hepatosplenomegaly , No ascites, No tenderness, No masses, No rebound Musculoskeletal: No clubbing, No swelling, No contractures, No erythema, No tenderness, No warmth Neurological: Normal speech, Normal strength at 5/5 x4 extr, Normal tone, Sensation intact Laboratory Data at Discharge: WBC 5.4 K/uL (4.3-10.9) D 11/11/17 05:00 Hgb 10.6 g/dL (12.0-15.0) L 11/11/17 05:00 Hct 31.3 % (36.0-45.0) L 11/11/17 05:00 Plt Count 230 K/uL (152-406) 11/11/17 05:00 PT 11.5 SECONDS (9.5-12.5) 11/09/17 22:00 INR 0.97 11/09/17 22:00 APTT 24.7 SECONDS (24.3-36.9) 11/09/17 22:00 Sodium 139 mEq/L (135-145) 11/11/17 05:00 Potassium 3.3 mEq/L (3.6-5.0) L 11/11/17 23:01 BUN 9 mg/dL (6-20) 11/11/17 05:00 Creatinine 0.67 mg/dL (0.44-1.00) 11/11/17 05:00 Glucose 93 mg/dL (65-120) 11/11/17 05:00 Phosphorus Cancelled 11/12/17 06:38 Magnesium 2.0 mg/dL (1.8-2.5) 11/09/17 22:00 Total Bilirubin 1.4 mg/dL (0.3-1.2) H 11/09/17 22:00 AST 18 IU/L (10-42) 11/09/17 22:00 ALT 22 IU/L (10-60) 11/09/17 22:00 Alkaline Phosphatase 42 IU/L (42-121) 11/09/17 22:00 B-Natriuretic Peptide < 10 pg/ml (<=100) 11/09/17 22:00 Triglycerides 666 mg/dL (35-160) H 11/11/17 23:01 Cholesterol 417 mg/dL (<200) H 11/10/17 00:24 LDL Cholesterol Direct 79 mg/dl (<130) 11/11/17 23:01 HDL Cholesterol 30 mg/dL (29-89) 11/10/17 00:24 Cholesterol/HDL Ratio 13.90 11/10/17 00:24 Lipase 45 U/L (22-51) 11/09/17 22:00 Home Medications: Metformin HCl 1,000 mg PO BID 09/16/17 Fenofibrate [Tricor*] 145 mg PO DAILY #30 tab 09/19/17 Dapagliflozin Propanediol [Farxiga] 10 mg PO DAILY 11/10/17 Trazodone HCl 100 mg PO BEDTIME PRN PRN 11/11/17 Patient Discharge Instructions: left AMA
[2017-11-12] MEDS ORDERED: TRAZODONE 50 MG TABLET PO ONE (22:04)
== END 2017-11-12 08:57 | disposition left against medical advice (07) | DRG 440 ==
LOC: ER 19:54 → ERHOLD 22:56 → 2ND 11-10 00:34 → ERHOLD 11-10 00:34 → 3RD-ICU 11-10 14:00
PROVIDERS: ADMIT Internal Medicine; ATTEND Internal Medicine
DX: K85.90 Acute pancreatitis without necrosis or infection, unspecified (principal); E78.1 Pure hyperglyceridemia; E11.9 Type 2 diabetes mellitus without complications
CPT/HCPCS: 36415; 71045; 74177; 80048; 80061; 80076; 81003; 81025; 82550; 82553; 82962; 83690; 83735; 83880; 84132; 84478; 84484; 85025; 85610; 85730; 93005; 96365; 96366; 96367; 96375; 99285; J0744; J1650; J2270; J2405; J3010; J7030; Q9967

== ENCOUNTER 2018-01-17 15:06 | Emergency (ER) | payer OTHER ==
--- OUTSIDE RECORDS SUMMARY | 2018-01-17 15:08 | XMS REPORT | Clinical Summary ---
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 Sex Assigned at Date Recorded Not on file Last Filed Vital Signs Vital Sign Reading Time Taken Blood Pressure 113/80 05/27/2017 9:12 AM [facility] Pulse 77 05/27/2017 9:12 AM [facility] Temperature 36.5 C (97.7 F) 05/27/2017 9:12 AM [facility] Respiratory Rate 16 05/25/2017 3:50 PM [facility] Oxygen Saturation 98% 05/25/2017 3:50 PM [facility] Inhaled Oxygen Concentration - - Weight 88.5 kg (195 lb) 05/27/2017 9:12 AM [facility] Height 162.6 cm (5' 4") 05/27/2017 9:12 AM [facility] Body Mass Index 33.47 05/27/2017 9:12 AM [facility] Plan of Treatment Health Maintenance Due Date Last Done Comments CERVICAL CANCER SCREENING 1999 INFLUENZA VACCINE 02/08/2018 Implants Implanted Type Area Peripatologist Device Expiration Model / Identifier Date Serial / Lot Kit Nurostmltn Lead Tined 4 Elctrd Spaced 3mm 28cm - [id number] Cardiac Pacing N /A: [employer] 11/03/2019 [id number] / Implanted: 01/07/2016 (Quantity not on file) Leads or N/A NEUROMODULATION / Electrodes or [id number] Accessories Verifyexternal Neurostimulator(Includes 1 Belt) - [id number] Neurosurgical N/A: [employer] 12/07/2020 [id number] / Implanted: 01/07/2016 (Quantity not on file) Implants N/A NEUROMODULATION [id number] / [id number] Neurostimulator Imp Interstim Ii [id number] Nrechrgbl - [id number] - [id number] Neurosurgical Right: [employer] [facility] - 04/23/2017 [id number] / Implanted: Qty: 1 on 01/15/2016 by Latoya Vallecillo MD Implants Coccyx NEUROLOGICAL [id number] / 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 Sacral Nuromodltn Interstim Icon - [id number] Neurosurgical N/ A: [employer] [facility] - [id number] / Implanted: Qty: 1 on 01/15/2016 by Latoya Vallecillo MD Implants N/A NEUROLOGICAL / Matrix [facility] Floseal 5ml W/ Humn F2 - [id number] Surgical N/A: [id number] / Implanted: Qty: 1 on 05/25/2017 by Latoya Vallecillo MD Implants ; N/A BIOSCIENCE / Expanders; Extenders; Surgical Wires System Sling urethrl Trnsvagnl Mesh Asmbly Advantage Fit - [id number] Urological N/A: BSC 04/18/2020 [id number] / Implanted: Qty: 1 on 05/25/2017 by Latoya Vallecillo MD Implants or N/A UROLOGY/GYNECOLO / Sets [id number] Procedures Procedure Name Priority Date/Time Associated Comments Diagnosis POC GLUCOSE Routine 05/25/2017 2:25 PM Results for this [facility] procedure are in the results section. ANESTHESIA Routine 05/25/2017 12:14 PM INTUBATION [facility] Procedure Note - Monika Bevaer CRNA - 05/25/2017 12:14 PM [facility] Airway Performed by: MONIKA BEAVER Authorized by: SUNSHINE CURRIE Location: OR Performed by: anesthesiologist Preoxygenated with 100% O2: Yes C-spine Precautions Maintained Throughout: Yes Mask Ventilation: Easy mask Final Airway Type: Supraglottic airway Final LMA: I-Gel LMA Size: 4 Number of Attempts at Approach: 1 SLING, PUBOVAGINAL 05/25/2017 12:00 PM Mixed incontinence [facility] urge and stress POC GLUCOSE Routine 05/25/2017 11:48 AM Results for this [facility] procedure are in the results section. ECG PRE/POST OP Routine 05/19/2017 1:44 PM Preop testing Results for this [facility] procedure are in the results section. ESTIMATED GFR Routine 05/19/2017 12:29 PM Results for this [facility] procedure are in the results section. HEMOGLOBIN A1C Routine 05/19/2017 12:29 PM Preop testing Results for this [facility] procedure are in the results section. URINALYSIS SCREEN Routine 05/19/2017 12:29 PM Preop testing Results for this AND MICROSCOPY, WITH [facility] procedure are in REFLEX TO CULTURE the results section. CBC HEMOGRAM Routine 05/19/2017 12:29 PM Preop testing Results for this [facility] procedure are in the results section. BASIC METABOLIC Routine 05/19/2017 12:29 PM Preop testing Results for this PANEL [facility] procedure are in the results section. URINE CULTURE Routine 05/19/2017 12:29 PM Results for this [facility] procedure are in the results section. XR SACRUM AND COCCYX Routine 04/25/2017 11:10 AM Mixed stress and urge Results for this CDT urinary incontinence procedure are in the results section. after 01/16/2017 Results POC glucose (05/25/2017 2:25 PM)Only the most recent of2 resultswithin the time period is included. POC glucose 112 (H) 65 - 99 mg/dL [facility] DEPARTMENT OF PATHOLOGY AND Comment: GENOMIC MEDICINE [facility] Notified RN Meter ID: [id number] Butcher Meat: Moisés Castaneda Performing Organization Address [facility] Phone Number [facility] DEPARTMENT OF PATHOLOGY AND [address] [place] [id number] [facility] ECG Pre/Post Op (05/19/2017 1:44 PM) Ventricular rate 75 [facility] M[facility] Atrial rate 75 [facility] TX interval 126 [facility] QRSD interval 86 [facility] QT interval 394 [facility] QTC interval 439 [facility] P axis 1 44 [facility] MUSE QRS axis 1 77 [facility] T wave axis 20 [facility] EKG impression Normal sinus rhythm-Normal ECG-In automated [facility] comparison with ECG of 09-SEP-2016 07:10,-No significant change was found- Performing Organization Address [facility] Phone Number [facility] [address] [place] [address] Urinalysis screen and microscopy, with reflex to culture (05/19/2017 12:29 PM) Specimen site Clean catch [facility] DEPARTMENT OF PATHOLOGY AND GENOMIC MEDICINE Color, UA Straw [facility] DEPARTMENT OF PATHOLOGY AND GENOMIC MEDICINE Appearance, UA Clear [facility] DEPARTMENT OF PATHOLOGY AND GENOMIC MEDICINE Specific gravity, UA 1.015 1.001 - 1.035 [facility] DEPARTMENT OF PATHOLOGY AND GENOMIC MEDICINE pH, UA 5.0 5.0 - 8.5 [facility] DEPARTMENT OF PATHOLOGY AND GENOMIC MEDICINE Protein, UA 2+ (A) Negative [facility] DEPARTMENT OF PATHOLOGY AND GENOMIC MEDICINE Glucose, UA Negative Negative [facility] DEPARTMENT OF PATHOLOGY AND GENOMIC MEDICINE Ketones, UA Negative Negative [facility] DEPARTMENT OF PATHOLOGY AND GENOMIC MEDICINE Bilirubin, UA Negative Negative [facility] DEPARTMENT OF PATHOLOGY AND GENOMIC MEDICINE Blood, UA Negative Negative [facility] DEPARTMENT OF PATHOLOGY AND GENOMIC MEDICINE Nitrite, UA Negative Negative [facility] DEPARTMENT OF PATHOLOGY AND GENOMIC MEDICINE Urobilinogen, UA <2.0 <2.0 [facility] DEPARTMENT OF PATHOLOGY AND GENOMIC MEDICINE Leukocyte esterase, UA Negative Negative [facility] DEPARTMENT OF PATHOLOGY AND GENOMIC MEDICINE Epithelial cells, UA 2 /HPF [facility] DEPARTMENT OF PATHOLOGY AND GENOMIC MEDICINE WBC, UA None seen 0 - 4 /HPF [facility] DEPARTMENT OF PATHOLOGY AND GENOMIC MEDICINE RBC, UA 1 0 - 2 /HPF [facility] DEPARTMENT OF PATHOLOGY AND GENOMIC MEDICINE Bacteria, UA None seen None seen [facility] DEPARTMENT OF PATHOLOGY AND GENOMIC MEDICINE Yeast, UA None seen [facility] DEPARTMENT OF PATHOLOGY AND GENOMIC MEDICINE Yeast with pseudohyphae, UA None seen [facility] DEPARTMENT OF PATHOLOGY AND GENOMIC MEDICINE Specimen Urine Performing Organization Address City/[facility] Phone Number [facility] DEPARTMENT OF PATHOLOGY AND [address] [phone] [facility] Estimated GFR (05/19/2017 12:29 PM) GFR Non Af Amer >90 mL/min/1.73 m2 [facility] DEPARTMENT OF PATHOLOGY AND GENOMIC MEDICINE GFR Af Amer >90 mL/min/1.73 m2 [facility] DEPARTMENT OF Comment: PATHOLOGY AND GENOMIC Chronic kidney disease: <60 mL/min/1.73m2 MEDICINE Kidney failure: <15 mL/min/1.73m2 The estimated GFR is calculated from the IDMS-traceable Modification of Diet in Renal Disease Equation. The accuracy of the calculation is poor when the creatinine is normal. Calculated values >90 mL/min/1.73m2 are not reported. This equation has not been validated in children (<18 years), women, the elderly (>70 years), or ethnic groups other than Caucasians and Americans. Specimen Plasma specimen Performing Organization Address City/State/[facility] Phone Number [facility] DEPARTMENT OF PATHOLOGY AND [address] [place] [address] [facility] CBC hemogram (05/19/2017 12:29 PM) WBC 7.00 4.50 - 11.00 k/uL [facility] DEPARTMENT OF PATHOLOGY AND GENOMIC MEDICINE RBC 4.35 4.20 - 5.50 m/uL [facility] DEPARTMENT OF PATHOLOGY AND GENOMIC MEDICINE HGB 13.0 12.0 - 16.0 g/dL [facility] DEPARTMENT OF PATHOLOGY AND GENOMIC MEDICINE HCT 36.9 (L) 37.0 - 47.0 % [facility] DEPARTMENT OF PATHOLOGY AND GENOMIC MEDICINE MCV 84.8 82.0 - 100.0 fL [facility] DEPARTMENT OF PATHOLOGY AND GENOMIC MEDICINE MCH 29.9 27.0 - 34.0 pg [facility] DEPARTMENT OF PATHOLOGY AND GENOMIC MEDICINE MCHC 35.2 31.0 - 37.0 g/dL [facility] DEPARTMENT OF PATHOLOGY AND GENOMIC MEDICINE RDW - SD 41.1 37.0 - 55.0 fL [facility] DEPARTMENT OF PATHOLOGY AND GENOMIC MEDICINE MPV 9.9 8.8 - 13.2 fL [facility] DEPARTMENT OF PATHOLOGY AND GENOMIC MEDICINE Platelet count 211 150 - 400 k/uL [facility] DEPARTMENT OF PATHOLOGY AND GENOMIC MEDICINE Nucleated RBC 0.00 /100 WBC [facility] DEPARTMENT OF PATHOLOGY AND GENOMIC MEDICINE Specimen Blood Performing Organization Address City/[facility] Phone Number [facility] DEPARTMENT OF PATHOLOGY AND [address] [place] [address] Urine culture (05/19/2017 12:29 PM) Urine culture SEE COMMENTComment: Bacteriuria [facility] DEPARTMENT OF PATHOLOGY screen negative. AND [facility] Specimen Urine Performing Organization Address City/[facility] Phone Number [facility] DEPARTMENT OF PATHOLOGY AND [address] [place], [place] [phone] [facility] Hemoglobin A1c (05/19/2017 12:29 PM) Hemoglobin A1C 7.1 (H) 4.0 - 5.6 % [facility] DEPARTMENT OF PATHOLOGY Comment: AND [facility] HbA1c cutoffs for diagnosing diabetes: 4.0% - 5.6%=normal 5.7% - 6.4%=increased risk for diabetes (prediabetes) >=6.5%=diabetes Goals for glycemic control (ADA 2016) < 7.0%Target for non adults with diabetes. More or less stringent targets may be appropriate for individual patients. <7.5% Target for Children and adolescents with type 1 diabetes. Specimen Blood Performing Organization Address City/[facility]/Zipcode Phone Number [facility] DEPARTMENT OF PATHOLOGY AND [address] [place] [phone] [facility] Basic metabolic panel (05/19/2017 12:29 PM) Sodium 134 (L) 135 - 148 mEq/L [facility] DEPARTMENT OF PATHOLOGY AND GENOMIC MEDICINE Potassium 3.9 3.5 - 5.0 mEq/L [facility] DEPARTMENT OF PATHOLOGY AND GENOMIC MEDICINE Chloride 94 (L) 98 - 112 mEq/L [facility] DEPARTMENT OF PATHOLOGY AND GENOMIC MEDICINE CO2 21 (L) 24 - 31 mEq/L [facility] DEPARTMENT OF PATHOLOGY AND GENOMIC MEDICINE Anion gap 19 (H) 7 - 15 mEq/L [facility] DEPARTMENT OF PATHOLOGY Comment: AND [facility] Starting from October , anion gap calculation no longer incorporates potassium. Please note the change. BUN 17 6 - 20 mg/dL [facility] DEPARTMENT OF PATHOLOGY AND GENOMIC MEDICINE Creatinine 0.6 0.5 - 0.9 mg/dL [facility] DEPARTMENT OF PATHOLOGY AND GENOMIC MEDICINE Glucose 183 (H) 65 - 99 mg/dL [facility] DEPARTMENT OF PATHOLOGY AND GENOMIC MEDICINE Calcium 9.5 8.3 - 10.2 mg/dL [facility] DEPARTMENT OF PATHOLOGY AND GENOMIC MEDICINE Specimen Plasma specimen Performing Organization Address City/[facility] Phone Number [facility] DEPARTMENT OF PATHOLOGY AND [address] [phone] [facility] XR Sacrum And Coccyx (04/25/2017 11:10 AM) Narrative Performed At EXAMINATION:XR SACRUM AND COCCYX [facility] 3 views CLINICAL HISTORY:N39.46 Mixed incontinence, Interstim Lead position COMPARISON:None. FINDINGS: 1. There are postop changes with nerve stimulator wire projected in the area of the right S3 sacral foramen. The electrodes are projected just anterior to the sacrum. The electronic unit projects over the buttock on the right side. 2.There is no other significant finding. IMPRESSION: Postoperative changes as described above. [facility]-[id number] Procedure Note Interface, Radiology Results Incoming - 04/25/2017 11:40 [...] finding. IMPRESSION: Postoperative changes as described above. [facility]-[id number] Performing Organization Address City/State/Zipcode Phone Number [facility] [address] [place] [address] after 01/16/2017 Insurance Payer Benefit Plan / Group Subscriber ID Type Phone Address [facility] UMR-L MULTISTATE IEBP xxxxxxxxxxxx PPO
[2018-01-17] MEDS ORDERED: NA CHLORIDE 0.9% 1,000 ML ONE (16:34)
[2018-01-17] MEDS ORDERED: ONDANSETRON 4 MG/2 ML VIAL ONE (16:34)
[2018-01-17] MEDS ORDERED: FAMOTIDINE 20 MG/2 ML VIAL IV ONE (16:34)
[2018-01-17 16:36] LABS: Absolute Lymphocytes (CBC) 2.4 K/uL (0.7-4.9); Absolute Monocytes 0.6 K/uL (0.1-1.3); Basophils % 1.4 % (0-1.3); Eosinophils % 1.1 % (0-4.4); Hematocrit 38.9 % (36.0-45.0); Lymphocytes % 33.6 % (15.3-44.8); MCH 28.7 pg (27.0-35.0); MCV 82.3 fL (80-100); MPV 7.7 fL (7.6-11.3); Monocytes % 8.5 % (3.3-12.3); RBC Red Blood Cell Count 4.73 M/uL (3.86-4.86)
[2018-01-17 16:38] LABS: Urine Blood NEGATIVE (NEG); Urine Glucose 2+ (NEG); Urine Protein TRACE (NEG)
[2018-01-17 17:11] LABS: ALT/SGPT 48 U/L (12-78); AST/SGOT 36 U/L (15-37); Albumin 4.4 g/dL (3.4-5.0); Alkaline Phosphatase 45 U/L (45-117); BUN Blood Urea Nitrogen 28 mg/dL (7-18); Bicarbonate 24 mmol/L (21-32); Bilirubin Direct < 0.1 mg/dL (0-0.2); Bilirubin Total 0.4 mg/dL (0.2-1.0); Glucose Level 167 mg/dL (74-106); Lipase 298 U/L (73-393); Potassium 3.9 mmol/L (3.5-5.1); Protein, Total 8.8 g/dL (6.4-8.2); Sodium Level 138 mmol/L (136-145)
[2018-01-17 17:38] LABS: Urine Bacteria <20 /HPF (<20); Urine Culture Reflex Order NOT NEEDED; Urine RBC <5 /HPF (NONE SEEN)
--- NOTE | 2018-01-17 18:08 | RAD REPORT ---
EXAM DESCRIPTION: CT - Stone Protocol - 01/17/2018 5:40 pm CLINICAL HISTORY: Abdominal pain. Upper abdominal pain with nausea and vomiting for 2 days COMPARISON: November 2017 TECHNIQUE: Computed axial tomography of the abdomen pelvis was obtained without oral or IV contrast. Lack of IV and oral contrast limits evaluation of solid organs, bowel, and vessels. Coronal reformat faith images were obtained and reviewed. All CT scans are performed using dose optimization technique as appropriate and may include automated exposure control or mA/KV adjustment according to patient size. FINDINGS: A 2 millimeter right renal calculus is present. Hydronephrosis is not seen. A left uretera l calculus is not noted. A left renal calculus is not seen. The liver has a diminished attenuation cyst with fatty infiltration. Spleen, pancreas and adrenals appear grossly normal There is no evidence of diverticulitis. The appendix appears normal A neurostimulator device is in place. IMPRESSION: 2 millimeter nonobstructing right renal calculus
[2018-01-17] MEDS ORDERED: PROMETHAZINE 25 MG/ML VIAL ONE (18:14)
[2018-01-17] MEDS ORDERED: MORPHINE 4 MG/ML SYR ONE (18:14)
--- NOTE | 2018-01-17 19:00 | ER ---
Nurse's Notes [facility] Name: Valentina Franco Age: 37 yrs Sex: Female : 1980 Arrival Date: 01/17/2018 Time: 15:07 Bed 14 Private MD: None, None Diagnosis: Vomiting;Generalized abdominal pain;Dehydration Presentation: 01/17 15:41 Presenting complaint: Patient states: Patient reports upper abdominal pain and N/V for aj 2 days. Transition of care: patient was not received from another setting of care. Onset of symptoms was January 15, 2018. Risk Assessment: Do you want to hurt yourself or someone else? Patient reports no desire to harm self or others. Initial Sepsis Screen: Does the patient meet any 2 criteria? No. Patient's initial sepsis screen is negative. Does the patient have a suspected source of infection? No. Patient's initial sepsis screen is negative. Care prior to arrival: None. 15:41 Method Of Arrival: Ambulatory aj 15:41 Acuity: CYNTHIA 3 aj Triage Assessment: 15:43 General: Appears in no apparent distress. uncomfortable, Behavior is calm, cooperative, aj appropriate for age. Pain: Complains of pain in right upper quadrant and left upper quadrant. Neuro: Level of Consciousness is awake, alert, obeys commands, Oriented to person, place, time, situation, Appropriate for age. Respiratory: Airway is patent Respiratory effort is even, unlabored, Respiratory pattern is regular, symmetrical. GI: Reports upper abdominal pain, nausea, vomiting. Derm: Skin is intact, is healthy with good turgor, Skin is pink, warm \\T\\ dry. normal. 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 - Social history:: Smoking status: Patient/guardian denies using tobacco, Patient uses alcohol, on a daily basis. - Ebola Screening: : Patient negative for fever greater than or equal to 101.5 degrees Fahrenheit, and additional compatible Ebola Virus Disease symptoms Patient denies exposure to infectious person Patient denies travel to an Ebola-affected area in the 21 days before illness onset No symptoms or risks identified at this time. Screenin:04 Abuse screen: Denies threats or abuse. Denies injuries from another. Nutritional bp screening: No deficits noted. Tuberculosis screening: No symptoms or risk factors identified. Fall Risk None identified. Assessment: 15:45 General: Appears uncomfortable, Behavior is calm, cooperative, Reports fever for 12-24 rb1 hours, 101.7 fever at home. Pain: Complains of pain in umbilical area and right lower quadrant Pain currently is 9 out of 10 on a pain scale. Neuro: Level of Consciousness is awake, alert, obeys commands, Oriented to person, place, time, situation. Cardiovascular: Capillary refill < 3 seconds is brisk in bilateral fingers. Respiratory: Airway is patent Respiratory effort is even, unlabored, Respiratory pattern is regular, symmetrical. GI: Bowel sounds present X 4 quads. Abd is soft Abdomen is tender to palpation in umbilical area and right lower quadrant. : No signs and/or symptoms were reported regarding the genitourinary system. Derm: Skin is pink, warm \\T\\ dry. 16:40 Reassessment: Patient appears in no apparent distress at this time. No changes from rb1 previously documented assessment. 17:38 Reassessment: Patient appears in no apparent distress at this time. Patient and/or rb1 family updated on plan of care and expected duration. Pain level reassessed. Patient is alert, oriented x 3, equal unlabored respirations, skin warm/dry/pink. 18:22 Reassessment: Patient appears in no apparent distress at this time. Patient and/or rb1 family updated on plan of care and expected duration. Pain level reassessed. Patient is alert, oriented x 3, equal unlabored respirations, skin warm/dry/pink. 19:00 Reassessment: RECD REPORT FROM LEONIE FREEMAN. 37YO HF P/W ABD PAIN AFTER ETOH CONSUMPTION. bp ALL CURRENT ORDERS COMPLETED, IVF INFUSING. 19:30 Reassessment: PT NOW ESPOUSING H/O POTS, D/C ON HOLD FOR FURTHER TREATMENT. bp 20:15 Reassessment: PT D/C HOME AMBULATORY, DX WITH GEN ABD PAIN AND VOMITING. bp Vital Signs: 15:43 BP 121 / 78; Pulse 129; Resp 20; Temp 97.5; Pulse Ox 97% on R/A; Weight 84.82 kg; aj Height 5 ft. 4 in. (162.56 cm); 16:30 BP 118 / 92; Pulse 100; Resp 19; Pulse Ox 98% on R/A; rb1 17:30 BP 111 / 75; Pulse 99; Resp 18; Pulse Ox 99% on R/A; rb1 18:00 BP 110 / 65; Pulse 102; Resp 19; Pulse Ox 99% on R/A; rb1 19:00 BP 122 / 82; Pulse 108; Resp 16; Pulse Ox 97% on R/A; bp 19:30 BP 109 / 56; Pulse 98; Resp 16; Pulse Ox 100% ; bp 20:00 BP 122 / 72; Pulse 85; Resp 14; Pulse Ox 99% ; bp 15:43 Body Mass Index 32.10 (84.82 kg, 162.56 cm) ED Course: 15:07 Patient arrived in ED. mr 15:08 None, None is Private Physician. mr 15:42 Triage completed. aj 15:43 Arm band placed on left wrist. Patient placed in an exam room. aj 15:46 Kris Sorenson MD is Attending Physician. gs 15:50 Lisa Bolivar, RN is Primary Nurse. rb1 17:31 Patient moved to [place] via wheelchair. nj 17:40 CT completed. Patient tolerated procedure well. Patient moved back from [place]. nj 17:40 CT Stone Protocol In Process Unspecified. EDMS 17:55 IV discontinued. dh3 17:56 Inserted saline lock: 20 gauge in left antecubital area, using aseptic technique. dh3 19:00 Report given to PETE Wilkins. rb1 19:04 Patient has correct armband on for positive identification. Bed in low position. Call bp light in reach. Side rails up X2. 19:21 Franky Smith, RN is Primary Nurse. bp 20:24 No provider procedures requiring assistance completed. IV discontinued, intact, bp bleeding controlled, No redness/swelling at site. Pressure dressing applied. Administered Medications: 16:30 Drug: NS 0.9% 1000 ml Route: IV; Rate: 1 bolus; Site: right antecubital; rb1 16:30 Drug: Zofran 4 mg Route: IVP; Site: right antecubital; rb1 16:45 Follow up: Response: No adverse reaction; Nausea is decreased rb1 16:30 Drug: Pepcid 20 mg Route: IVP; Site: right antecubital; rb1 16:45 Follow up: Response: No adverse reaction rb1 18:20 Drug: Phenergan 25 mg Route: IVP; Site: left antecubital; rb1 19:05 Follow up: Response: Nausea is decreased bp 18:20 Drug: morphine 4 mg Route: IVP; Site: left antecubital; rb1 19:06 Follow up: Response: Pain is decreased bp 19:30 Drug: NS 0.9% 1000 ml Route: IV; Rate: 1 bolus; Site: left antecubital; bp 20:05 Follow up: IV Status: Completed infusion; IV Intake: 1000ml bp 19:30 Drug: NS 0.9% 1000 ml Route: IV; Rate: 1 bolus; Site: left antecubital; bp 20:23 Follow up: IV Status: Completed infusion; IV Intake: 1000ml bp 19:45 Drug: HydroCORTISONE 100 mg Route: IVP; Site: left antecubital; bp 20:23 Follow up: Response: No adverse reaction bp Point of Care Testing: Blood Glucose: 16:18 Blood Glucose: 158 mg/dL; rb1 Ranges: Intake: 20:05 IV: 1000ml; Total: 1000ml. bp 20:23 IV: 1000ml; Total: 2000ml. bp Outcome: 19:00 Discharge ordered by . gs 20:24 Discharged to home ambulatory. bp 20:24 Condition: stable 20:24 Discharge instructions given to patient, Instructed on discharge instructions, follow up and referral plans. medication usage, Demonstrated understanding of instructions, follow-up care, medications, Prescriptions given X 2. 20:35 Discharge ordered by . gs 20:44 Patient left the ED. bp Signatures: Dispatcher [employer] EDMS Ashley Browning RN RN aj Rivera, Maria mr Barber, Rebecca, RN RN rb1 Juvencio Cole [facility] Kris Sorenson MD MD gs Peltier, Brian, RN RN bp Corrections: (The following items were deleted from the chart) 18:32 16:30 BP 113 / 59; Pulse 65bpm; Resp 19bpm; Pulse Ox 95%; rb1 rb1 18:32 17:30 BP 121 / 58; Pulse 65bpm; Resp 20bpm; Pulse Ox 93% RA; rb1 rb1 19:22 19:00 Reassessment: RECD REPORT FROM YOU FREEMAN. 37YO HF P/W ABD PAIN AFTER ETOH bp CONSUMPTION. ALL CURRENT ORDERS COMPLETED, IVF INFUSING bp 20:22 19:30 BP 90 / 56; Pulse 98bpm; Resp 16bpm; Pulse Ox 100%; bp bp
--- NOTE | 2018-01-17 19:00 | EDPHYS ---
Physician Documentation [facility] Name: Valentina Franco Age: 37 yrs Sex: Female : 1980 Arrival Date: 01/17/2018 Time: 15:07 Bed 14 Private MD: None, None ED Physician Kris Sorenson HPI: 01/17 18:51 This 37 yrs old Female presents to ER via Ambulatory with complaints of gs Abdominal Pain. 18:51 The patient presents to the emergency department with nausea, vomiting. Onset: The gs symptoms/episode began/occurred yesterday. Possible causes: unknown. The symptoms are aggravated by nothing. The symptoms are alleviated by nothing. Associated signs and symptoms: Pertinent positives: abdominal pain, Pertinent negatives: fever. Severity of symptoms: At their worst the symptoms were severe in the emergency department the symptoms have improved markedly. The patient has experienced similar episodes in the past, several times. The patient has not recently seen a physician. 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 - Social history:: Smoking status: Patient/guardian denies using tobacco, Patient uses alcohol, on a daily basis. - Ebola Screening: : Patient negative for fever greater than or equal to 101.5 degrees Fahrenheit, and additional compatible Ebola Virus Disease symptoms Patient denies exposure to infectious person Patient denies travel to an Ebola-affected area in the 21 days before illness onset No symptoms or risks identified at this time. ROS: 18:51 All other systems are negative. gs Exam: 18:51 Head/Face: Normocephalic, atraumatic. Eyes: Pupils equal round and reactive to light, gs extra-ocular motions intact. Lids and lashes normal. Conjunctiva and sclera are non-icteric and not injected. Cornea within normal limits. Periorbital areas with no swelling, redness, or edema. ENT: Nares patent. No nasal discharge, no septal abnormalities noted. Tympanic membranes are normal and external auditory canals are clear. Oropharynx with no redness, swelling, or masses, exudates, or evidence of obstruction, uvula midline. Mucous membranes moist. Neck: Trachea midline, no thyromegaly or masses palpated, and no cervical lymphadenopathy. Supple, full range of motion without nuchal rigidity, or vertebral point tenderness. No Meningismus. Chest/axilla: Normal chest wall appearance and motion. Nontender with no deformity. No lesions are appreciated. Cardiovascular: Regular rate and rhythm with a normal S1 and S2. No gallops, murmurs, or rubs. Normal PMI, no JVD. No pulse deficits. Respiratory: Lungs have equal breath sounds bilaterally, clear to auscultation and percussion. No rales, rhonchi or wheezes noted. No increased work of breathing, no retractions or nasal flaring. Back: No spinal tenderness. No costovertebral tenderness. Full range of motion. Skin: Warm, dry with normal turgor. Normal color with no rashes, no lesions, and no evidence of cellulitis. MS/ Extremity: Pulses equal, no cyanosis. Neurovascular intact. Full, normal range of motion. Neuro: Awake and alert, GCS 15, oriented to person, place, time, and situation. Cranial nerves II-XII grossly intact. Motor strength 5/5 in all extremities. Sensory grossly intact. Cerebellar exam normal. Normal gait. 18:51 Constitutional: The patient appears alert, awake. 18:51 Abdomen/GI: Palpation: moderate abdominal tenderness, in the right upper quadrant and right lower quadrant, rebound tenderness, is not appreciated. Vital Signs: 15:43 BP 121 / 78; Pulse 129; Resp 20; Temp 97.5; Pulse Ox 97% on R/A; Weight 84.82 kg; aj Height 5 ft. 4 in. (162.56 cm); 16:30 BP 118 / 92; Pulse 100; Resp 19; Pulse Ox 98% on R/A; rb1 17:30 BP 111 / 75; Pulse 99; Resp 18; Pulse Ox 99% on R/A; rb1 18:00 BP 110 / 65; Pulse 102; Resp 19; Pulse Ox 99% on R/A; rb1 19:00 BP 122 / 82; Pulse 108; Resp 16; Pulse Ox 97% on R/A; bp 19:30 BP 109 / 56; Pulse 98; Resp 16; Pulse Ox 100% ; bp 20:00 BP 122 / 72; Pulse 85; Resp 14; Pulse Ox 99% ; bp 15:43 Body Mass Index 32.10 (84.82 kg, 162.56 cm) aj MDM: 15:53 Patient medically screened. gs 18:51 Differential diagnosis: pancreatitis, appendicitis, diverticulitis, viral gs gastroenteritis, gastroenteritis. Data reviewed: vital signs, nurses notes. Response to treatment: the patient's symptoms have markedly improved after treatment, and as a result, I will discharge patient. 01/17 15:59 Order name: Basic Metabolic Panel; Complete Time: 17:48 01/17 15:59 Order name: CBC with Diff; Complete Time: 17:48 01/17 15:59 Order name: Hepatic Function; Complete Time: 17:48 01/17 15:59 Order name: Lipase; Complete Time: 17:48 01/17 15:59 Order name: Urine Microscopic Only; Complete Time: 17:48 01/17 16:29 Order name: Urine Dipstick--Ancillary (enter results); Complete Time: 17:48 01/17 16:29 Order name: Urine --Ancillary (enter results); Complete Time: 17:48 01/17 17:04 Order name: CT Stone Protocol; Complete Time: 18:10 01/17 19:16 Order name: Troponin (emerg Dept Use Only); Complete Time: 20:35 01/17 15:59 Order name: IV Saline Lock; Complete Time: 16:19 01/17 15:59 Order name: Labs collected and sent; Complete Time: 16:19 01/17 15:59 Order name: Urine Dipstick-Ancillary (obtain specimen); Complete Time: 16:20 01/17 19:16 Order name: EKG; Complete Time: 19:16 01/17 19:16 Order name: EKG - Nurse/Tech; Complete Time: 19:47 gs Administered Medications: 16:30 Drug: NS 0.9% 1000 ml Route: IV; Rate: 1 bolus; Site: right antecubital; rb1 16:30 Drug: Zofran 4 mg Route: IVP; Site: right antecubital; rb1 16:45 Follow up: Response: No adverse reaction; Nausea is decreased rb1 16:30 Drug: Pepcid 20 mg Route: IVP; Site: right antecubital; rb1 16:45 Follow up: Response: No adverse reaction rb1 18:20 Drug: Phenergan 25 mg Route: IVP; Site: left antecubital; rb1 19:05 Follow up: Response: Nausea is decreased bp 18:20 Drug: morphine 4 mg Route: IVP; Site: left antecubital; rb1 19:06 Follow up: Response: Pain is decreased bp 19:30 Drug: NS 0.9% 1000 ml Route: IV; Rate: 1 bolus; Site: left antecubital; bp 20:05 Follow up: IV Status: Completed infusion; IV Intake: 1000ml bp 19:30 Drug: NS 0.9% 1000 ml Route: IV; Rate: 1 bolus; Site: left antecubital; bp 20:23 Follow up: IV Status: Completed infusion; IV Intake: 1000ml bp 19:45 Drug: HydroCORTISONE 100 mg Route: IVP; Site: left antecubital; bp 20:23 Follow up: Response: No adverse reaction bp Point of Care Testing: Blood Glucose: 16:18 Blood Glucose: 158 mg/dL; rb1 Ranges: Critical Glucose Levels:Adult <50 mg/dl or >400 mg/dl <40 mg/dl or >180 mg/dl Disposition: 01/17/18 20:35 Discharged to Home. Impression: Vomiting, Generalized abdominal pain, Dehydration. - Condition is Stable. - Discharge Instructions: Abdominal Pain, Adult, Nausea and Vomiting. - Medication Reconciliation Form, Thank You Letter, Antibiotic Education, Prescription Opioid Use form. - Follow up: Private Physician; When: 2 - 3 days; Reason: Re-evaluation by your physician. Signatures: Dispatcher [employer] Ashley Driscoll RN RN aj Barber, Rebecca, RN RN rb1 Kris Sorenson MD MD gs Peltier, Brian, RN RN bp Corrections: (The following items were deleted from the chart) 19:16 19:00 01/17/2018 19:00 Discharged to Home. Impression: Vomiting; Generalized abdominal gs pain. Condition is Stable. Forms are Medication Reconciliation Form, Thank You Letter, Antibiotic Education, Prescription Opioid Use. Follow up: Private Physician; When: 2 - 3 days; Reason: Re-evaluation by your physician. allen 20:44 20:35 01/17/2018 20:35 Discharged to Home. Impression: Vomiting; Generalized abdominal bp pain; Dehydration. Condition is Stable. Prescriptions for Zofran 4 mg Oral Tablet - take 1 tablet by ORAL route every 12 hours As needed; 6 tablet, promethazine 25 mg Oral Tablet - take 1 tablet by ORAL route every 6 hours As needed; 12 tablet. and Forms are Medication Reconciliation Form, Thank You Letter, Antibiotic Education, Prescription Opioid Use. Follow up: Private Physician; When: 2 - 3 days; Reason: Re-evaluation by your physician.
[2018-01-17] MEDS ORDERED: NA CHLORIDE 0.9% 2,000 ML ONE (19:34)
[2018-01-17] MEDS ORDERED: HYDROCORTISONE SUC 100 MG INJ ONE (19:52)
[2018-01-17 20:55] VITALS: TEMP 97.5
[2018-01-17 21:02] VITALS: BP 122/72; O2SAT 99
--- NOTE | 2018-01-18 06:31 | EKG ---
Test Date: 2018-01-17 Test Time: 19:46:43 Tool Machinist: SHANELL MEASUREMENT RESULTS: Intervals: Rate: 89 SC: 160 QRSD: 86 QT: 360 QTc: 438 [place]: P: 64 SC: 160 QRS: 76 T: 48 INTERPRETIVE STATEMENTS: Normal sinus rhythm Normal ECG Compared to ECG 11/09/2017 22:15:06 no significant change from previous ECG Electronically Signed On 01-18-18 06:30:51 CDT by Tres Salazar
== END 2018-01-17 20:44 | disposition home or self-care (01) ==
LOC: ER 15:06
DX: E86.0 Dehydration (principal); R10.84 Generalized abdominal pain; E11.9 Type 2 diabetes mellitus without complications; E78.00 Pure hypercholesterolemia, unspecified; F32.9 Major depressive disorder, single episode, unspecified
CPT/HCPCS: 36415; 74176; 76377; 80048; 80076; 81003; 81015; 81025; 82962; 83690; 84484; 85025; 93005; 99284; J1720; J2405; J2550; J7030

== ENCOUNTER 2018-05-17 16:46 | Emergency (ER) | payer OTHER ==
--- OUTSIDE RECORDS SUMMARY | 2018-05-17 16:48 | XMS REPORT | Clinical Summary ---
:1980 Author Organization [facility] Address [address] [place] [address] Care Team Providers Name Role Phone Amira Joyce Primary Care Provider Allergies No Known Allergies Current Medications Prescription Sig. Disp. Refills Start Date End Date Status metFORMIN Take 1,000 mg 09/20/2015 Active (GLUCOPHAGE) 1000 by mouth 2 MG tablet (two) times a day with meals. midodrine Take 5 mg by Active (PROAMATINE) 5 MG mouth 3 tablet (three) times a day. MULTIVITAMIN WITH Take 1 tablet Active IRON (HAIR VITAMINS by mouth ORAL) daily. MV,CA,MIN/IRON/FA/G Take by mouth. Active UARANA/CAFF (ONE-A-DAY WOMEN'S ACTIVE ORAL) ARIPiprazole Take 5 mg by 0 03/16/2018 Active (ABILIFY) 5 MG mouth daily. tablet escitalopram Take 20 mg by 0 04/06/2018 Active (LEXAPRO) 20 MG mouth daily. tablet loratadine Take 10 mg by 0 03/16/2018 Active (CLARITIN) 10 mg mouth daily. tablet venlafaxine XR Take by mouth 0 04/06/2018 Active (EFFEXOR-XR) 75 MG daily. 24 hr capsule acetaminophen-codei Take 1 tablet 30 tablet 0 05/25/2017 06/24/2017 ne (TYLENOL WITH by mouth every CODEINE #3) 300-30 4 (four) hours mg per tablet as needed for moderate pain for up to 30 days. ibuprofen Take 1 tablet 30 tablet 0 05/25/2017 06/24/2017 (ADVIL,MOTRIN) 800 (800 mg total) MG tablet by mouth every 6 (six) hours as needed for mild pain for up to 30 days. nitrofurantoin, Take 1 capsule 5 capsule 0 05/25/2017 05/30/2017 macrocrystal-monohy (100 mg total) drate, (MACROBID) by mouth daily 100 MG capsule for 5 days. Only while you have walters catheter nitrofurantoin, Take 1 capsule 7 capsule 0 05/26/2017 06/02/2017 macrocrystal-monohy (100 mg total) drate, (MACROBID) by mouth daily 100 MG capsule for 7 days. metFORMIN Take 1,000 mg 05/05/2018 Discontinued (GLUCOPHAGE) 1,000 by mouth. 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 05/03/2018 Telephone Urogynecology Carina Forrester BEARING INSPECTOR 05/02/2018 Telephone Urogynecology Latoya Vallecillo MD 03/22/2018 Telephone Obstetrics and [facility] Petr Robison MD 03/08/2018 Telephone Obstetrics carlton Wolf Gynecology Petr Robison MD 06/08/2017 Telephone Obstetrics Latoya Fuchs Gynecology Carrie Elise MD 05/27/2017 Clinical Support Urogynecology Aditi Gaytan, Post-operative state 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 INTERN (Primary Dx) 05/26/2017 Telephone Obstetrics Latoya Fuchs Gynecology Carrie Elise MD 05/25/2017 [facility] Latoya Medina Encounter Gynecology Carrie Elise MD 05/25/2017 Procedure Pass Obstetrics and Gynecology 05/25/2017 Surgery Obstetrics and Latoya Vallecillo CYSTO, INSERTION OF Gynecology Carrie Elise MD MIDURETHRAL SLING, RETROPUBIC APPROACH 05/24/2017 Anesthesia Event Obstetrics and Valente Jenkins, Gynecology UPHOLSTERY MECHANIC 05/24/2017 Telephone Urogynecology Latoya Vallecillo MD 05/19/2017 Pre-Admit Testing Pre-Admission Latoya Vallecillo Preop testing Appointment Testing Carrie Elise MD (Primary Dx) 05/19/2017 Office Visit Urogynecology Latoya Vallecillo CLIFFORD (stress urinary incontinence, female) (Primary Dx); Carrie Elise MD Urinary incontinence, mixed after 05/16/2017 Family History Medical History Relation Name Comments [...] Vital Sign Reading Time Taken Blood Pressure 115/80 05/05/2018 8:44 AM CDT Pulse 92 05/05/2018 8:44 AM CDT Temperature 36.7 C (98.1 F) 05/05/2018 8:44 AM CDT Respiratory Rate 16 05/25/2017 3:50 PM [employer] Oxygen Saturation 98% 05/25/2017 3:50 PM [employer] Inhaled Oxygen Concentration - - Weight 88.5 kg (195 lb) 05/27/2017 9:12 AM [employer] Height 162.6 cm (5' 4") 05/05/2018 8:44 AM CDT Body Mass Index 33.47 05/27/2017 9:12 AM [employer] Plan of Treatment Date Type Specialty Care Team Description 05/19/2018 Office Visit Urogynecology Carina Forrester NP [address] [facility] [address] [place] [id number] Health Maintenance Due Date Last Done Comments CERVICAL CANCER SCREENING 1999 INFLUENZA VACCINE 02/08/2018 03/19/2013 Implants Implanted Type Area Racebook Writer Device Expiration Model / Identifier Date Serial / Lot Kit Nurostmltn Lead Tined 4 Elctrd Spaced 3mm 28cm - [id number] Cardiac Pacing N /A: [employer] 11/03/2019 [id number] / Implanted: 01/07/2016 (Quantity not on file) Leads or N/A NEUROMODULATION / Electrodes or [id number] Accessories Verifyexternal Neurostimulator(Includes 1 Belt) - [id number] Neurosurgical N/A: [employer] 12/07/2020 [id number] / Implanted: 01/07/2016 (Quantity not on file) Implants N/A NEUROMODULATION [id number] / [id number] Neurostimulator Imp Interstim Ii [id number] Nrechrgbl - [id number] - [id number] Neurosurgical Right: [employer] [facility] - 04/23/2017 [id number] / Implanted: Qty: 1 on 01/15/2016 by Latoya Vallecillo MD Implants Coccyx NEUROLOGICAL [id number] / [id number] Hooker Off Pt For Sacral Nuromodltn Interstim Icon - [id number] Neurosurgical N/ A: [employer] [facility] - [id number] / Implanted: Qty: 1 on 01/15/2016 by Latoya Vallecillo MD Implants N/A NEUROLOGICAL / Matrix Hmstc Floseal 5ml W/ Humn F2 - [id number] Surgical N/A: [id number] / Implanted: Qty: 1 on 05/25/2017 by Latoya Vallecillo MD Implants ; N/A BIOSCIENCE / Expanders; Extenders; Surgical Wires System Sling Mdurethrl Trnsvagnl Mesh Asmbly Advantage Fit - [id number] Urological N/A: [facility] 04/18/2020 [id number] / Implanted: Qty: 1 on 05/25/2017 by Latoya Vallecillo MD Implants or N/A UROLOGY/GYNECOLO / Sets [id number] Procedures Procedure Name Priority Date/Time Associated Diagnosis Comments MEASURE POST VOID Routine 05/05/2018 9:15 Right buttock pain Results for this RESIDUAL AM CDT Complication of procedure are in implanted electronic the results neurostimulator of section. peripheral nerve, initial encounter Urinary incontinence, mixed POC URINALYSIS Routine 05/05/2018 9:14 Right buttock pain Results for this DIPSTICK AM CDT Complication of procedure are in implanted electronic the results neurostimulator of section. peripheral nerve, initial encounter Urinary incontinence, mixed POC GLUCOSE Routine 05/25/2017 2:25 Results for this PM [employer] procedure are in the results section. ANESTHESIA Routine 05/25/2017 12:14 INTUBATION PM [employer] Procedure Note - Ivan Beaver., CHIROPRACTIC TEACHER - 05/25/2017 12:14 PM [employer] Airway Performed by: IVAN BEAVER Authorized by: SUNSHINE CURRIE Location: OR Performed by: anesthesiologist Preoxygenated with 100% O2: Yes C-spine Precautions Maintained Throughout: Yes Mask Ventilation: Easy mask Final Airway Type: Supraglottic airway Final LMA: I-Gel LMA Size: 4 Number of Attempts at Approach: 1 SLING, PUBOVAGINAL 05/25/2017 12:00 PM Mixed incontinence [employer] urge and stress POC GLUCOSE Routine 05/25/2017 11:48 AM Results for this [employer] procedure are in the results section. ECG PRE/POST OP Routine 05/19/2017 1:44 PM Preop testing Results for this [employer] procedure are in the results section. ZZESTIMATED GFR Routine 05/19/2017 12:29 PM Results for this [employer] procedure are in the results section. HEMOGLOBIN A1C Routine 05/19/2017 12:29 PM Preop testing Results for this [employer] procedure are in the results section. URINALYSIS SCREEN Routine 05/19/2017 12:29 PM Preop testing Results for this AND MICROSCOPY, WITH [employer] procedure are in REFLEX TO CULTURE the results section. CBC HEMOGRAM Routine 05/19/2017 12:29 PM Preop testing Results for this [employer] procedure are in the results section. BASIC METABOLIC Routine 05/19/2017 12:29 PM Preop testing Results for this PANEL [employer] procedure are in the results section. URINE CULTURE Routine 05/19/2017 12:29 PM Results for this [employer] procedure are in the results section. after 05/16/2017 Results Measure post void residual (05/05/2018 9:15 AM) Total volume, urine 13ml POC urinalysis dipstick (05/05/2018 9:14 AM) Color urine, POC Yellow Clarity urine, POC Clear Glucose urine, POC 3+ (A) Negative Bilirubin urine, POC Negative Negative Ketones urine, POC Negative Negative Specific gravity urine, POC 1.015 1.005 - 1.030 Blood urine, POC Negative Negative pH urine, POC 6.0 5.0, 5.5, 6.0, 6.5, 7.0, 7.5, 8.0, 8.5 Protein urine, POC 3+ (A) Negative Urobilinogen urine, POC <2.0 <2.0 Nitrite urine, POC Negative Negative Leukocyte esterase urine, POC Negative Negative Specimen Urine POC glucose (05/25/2017 2:25 PM)Only the most recent of2 resultswithin the time period is included. POC glucose 112 (H) 65 - 99 mg/dL [facility] DEPARTMENT OF PATHOLOGY AND Comment: GENOMIC MEDICINE [facility] Notified RN Meter ID: [id number] Lumber Scaler: Moisés Castaneda Performing Organization Address [facility] Phone Number [facility] DEPARTMENT OF PATHOLOGY AND [address] [place] [id number] [facility] ECG Pre/Post Op (05/19/2017 1:44 PM) Ventricular rate 75 [facility] MUSE Atrial rate 75 [facility] MUSE IL interval 126 [facility] M[facility] QRSD interval 86 [facility] QT interval 394 [facility] QTC interval 439 [facility] M[facility] P axis 1 44 [facility] MUSE QRS axis 1 77 [facility] MUSE T wave axis 20 [facility] EKG impression Normal sinus rhythm-Normal ECG-In automated [facility] MUSE comparison with ECG of 09-SEP-2016 07:10,-No significant change was found- Performing Organization Address [facility] Phone Number [facility] MUSE [address] [place] [address] Urinalysis screen and microscopy, with reflex to culture (05/19/2017 12:29 PM) Specimen site Clean catch [facility] DEPARTMENT OF PATHOLOGY AND GENOMIC MEDICINE Color, UA Straw [facility] DEPARTMENT OF PATHOLOGY AND GENOMIC MEDICINE Appearance, UA Clear [facility] DEPARTMENT OF PATHOLOGY AND GENOMIC MEDICINE Specific gravity, UA 1.015 1.001 - 1.035 [facility] DEPARTMENT OF PATHOLOGY AND GENOMIC MEDICINE pH, UA 5.0 5.0 - 8.5 [facility] DEPARTMENT OF PATHOLOGY AND GENOMIC MEDICINE Protein, UA 2+ (A) Negative [facility] DEPARTMENT OF PATHOLOGY AND GENOMIC MEDICINE Glucose, UA Negative Negative [facility] DEPARTMENT OF PATHOLOGY AND GENOMIC MEDICINE Ketones, UA Negative Negative [facility] DEPARTMENT OF PATHOLOGY AND GENOMIC MEDICINE Bilirubin, UA Negative Negative [facility] DEPARTMENT OF PATHOLOGY AND GENOMIC MEDICINE Blood, UA Negative Negative [facility] DEPARTMENT OF PATHOLOGY AND GENOMIC MEDICINE Nitrite, UA Negative Negative [facility] DEPARTMENT OF PATHOLOGY AND GENOMIC MEDICINE Urobilinogen, UA <2.0 <2.0 [facility] DEPARTMENT OF PATHOLOGY AND GENOMIC MEDICINE Leukocyte esterase, UA Negative Negative [facility] DEPARTMENT OF PATHOLOGY AND GENOMIC MEDICINE Epithelial cells, UA 2 /HPF [facility] DEPARTMENT OF PATHOLOGY AND GENOMIC MEDICINE WBC, UA None seen 0 - 4 /HPF [facility] DEPARTMENT OF PATHOLOGY AND GENOMIC MEDICINE RBC, UA 1 0 - 2 /HPF [facility] DEPARTMENT OF PATHOLOGY AND GENOMIC MEDICINE Bacteria, UA None seen None seen [facility] DEPARTMENT OF PATHOLOGY AND GENOMIC MEDICINE Yeast, UA None seen [facility] DEPARTMENT OF PATHOLOGY AND GENOMIC MEDICINE Yeast with pseudohyphae, UA None seen [facility] DEPARTMENT OF PATHOLOGY AND GENOMIC MEDICINE Specimen Urine Performing Organization Address City/State/[facility] Phone Number [facility] DEPARTMENT OF PATHOLOGY AND [address] Estimated GFR (05/19/2017 12:29 PM) GFR Non Af Amer >90 mL/min/1.73 m2 [facility] DEPARTMENT OF PATHOLOGY AND GENOMIC MEDICINE GFR Af Amer >90 mL/min/1.73 m2 [facility] DEPARTMENT OF Comment: PATHOLOGY AND GENOMIC Chronic [...] Americans. Specimen Plasma specimen Performing Organization Address City/State/Zipcode Phone Number [facility] DEPARTMENT OF PATHOLOGY AND [address] [place] [address] [facility] CBC hemogram (05/19/2017 12:29 PM) WBC 7.00 4.50 - 11.00 k/uL [facility] DEPARTMENT OF PATHOLOGY AND GENOMIC MEDICINE RBC 4.35 4.20 - 5.50 m/uL [facility] DEPARTMENT OF PATHOLOGY AND GENOMIC MEDICINE HGB 13.0 12.0 - 16.0 g/dL [facility] DEPARTMENT OF PATHOLOGY AND GENOMIC MEDICINE HCT 36.9 (L) 37.0 - 47.0 % [facility] DEPARTMENT OF PATHOLOGY AND GENOMIC MEDICINE MCV 84.8 82.0 - 100.0 fL [facility] DEPARTMENT OF PATHOLOGY AND GENOMIC MEDICINE MCH 29.9 27.0 - 34.0 pg [facility] DEPARTMENT OF PATHOLOGY AND GENOMIC MEDICINE MCHC 35.2 31.0 - 37.0 g/dL [facility] DEPARTMENT OF PATHOLOGY AND GENOMIC MEDICINE RDW - SD 41.1 37.0 - 55.0 fL [facility] DEPARTMENT OF PATHOLOGY AND GENOMIC MEDICINE MPV 9.9 8.8 - 13.2 fL [facility] DEPARTMENT OF PATHOLOGY AND GENOMIC MEDICINE Platelet count 211 150 - 400 k/uL [facility] DEPARTMENT OF PATHOLOGY AND GENOMIC MEDICINE Nucleated RBC 0.00 /100 WBC [facility] DEPARTMENT OF PATHOLOGY AND GENOMIC MEDICINE Specimen Blood Performing Organization Address City/[facility] [place] [facility] Cent[facility] Phone Number [facility] DEPARTMENT OF PATHOLOGY AND [address] [place] [address] Urine culture (05/19/2017 12:29 PM) Urine culture SEE COMMENTComment: Bacteriuria [facility] DEPARTMENT OF PATHOLOGY screen negative. AND [employer] [facility] Specimen Urine Performing Organization Address City/[facility] [place] [facility] Cent[facility]ode Phone Number [facility] DEPARTMENT OF PATHOLOGY AND [address] [place] [address] Hemoglobin A1c (05/19/2017 12:29 PM) Hemoglobin A1C 7.1 (H) 4.0 - 5.6 % [facility] DEPARTMENT OF PATHOLOGY Comment: [facility] HbA1c cutoffs for diagnosing diabetes: 4.0% - 5.6%=normal 5.7% - 6.4%=increased risk for diabetes (prediabetes) >=6.5%=diabetes Goals for glycemic control (ADA 2016) < 7.0%Target for non adults with diabetes. More or less stringent targets may be appropriate for individual patients. <7.5% Target for Children and adolescents with type 1 diabetes. Specimen Blood Performing Organization Address City/[facility]/Zipcode Phone Number [facility] DEPARTMENT OF PATHOLOGY AND [address] [place], [place] [phone] [employer] [facility] Basic metabolic panel (05/19/2017 12:29 PM) Sodium 134 (L) 135 - 148 mEq/L [facility] DEPARTMENT OF PATHOLOGY AND GENOMIC MEDICINE Potassium 3.9 3.5 - 5.0 mEq/L [facility] DEPARTMENT OF PATHOLOGY AND GENOMIC MEDICINE Chloride 94 (L) 98 - 112 mEq/L [facility] DEPARTMENT OF PATHOLOGY AND GENOMIC MEDICINE CO2 21 (L) 24 - 31 mEq/L [facility] DEPARTMENT OF PATHOLOGY AND GENOMIC MEDICINE Anion gap 19 (H) 7 - 15 mEq/L [facility] DEPARTMENT OF PATHOLOGY Comment: AND [facility] Starting from October , anion gap calculation no longer incorporates potassium. Please note the change. BUN 17 6 - 20 mg/dL [facility] DEPARTMENT OF PATHOLOGY AND GENOMIC MEDICINE Creatinine 0.6 0.5 - 0.9 mg/dL [facility] DEPARTMENT OF PATHOLOGY AND GENOMIC MEDICINE Glucose 183 (H) 65 - 99 mg/dL [facility] DEPARTMENT OF PATHOLOGY AND GENOMIC MEDICINE Calcium 9.5 8.3 - 10.2 mg/dL [facility] DEPARTMENT OF PATHOLOGY AND GENOMIC MEDICINE Specimen Plasma specimen Performing Organization Address City/State/Zipcode Phone Number [facility] DEPARTMENT OF PATHOLOGY AND [address] [place] [address] [employer] [facility] after 05/16/2017 Insurance Payer Benefit Plan / Group Subscriber ID Type Phone Address [facility] [employer]MR-T[employer] MULTISTATE IEBP xxxxxxxxxxxx PPO
[2018-05-17 17:25] LABS: Absolute Lymphocytes (CBC) 2.8 K/uL (0.7-4.9); Absolute Monocytes 0.5 K/uL (0.1-1.3); Absolute Neutrophil 3.9 K/uL (1.8-8.0); Eosinophils % 0.8 % (0-4.4); MCV 83.9 fL (80-100); MPV 7.4 fL (7.6-11.3); Monocytes % 7.4 % (3.3-12.3); RBC Red Blood Cell Count 5.12 M/uL (3.86-4.86)
[2018-05-17] MEDS ORDERED: NA CHLORIDE 0.9% 1,000 ML ONE ×2 (17:25→18:41)
[2018-05-17] MEDS ORDERED: MEPERIDINE HCL 25 MG/0.5 ML ONE (17:25)
--- NOTE | 2018-05-17 17:26 | RAD REPORT ---
EXAM DESCRIPTION: CT - Head Brain Wo Cont - 05/17/2018 5:16 pm CLINICAL HISTORY: Headache COMPARISON: 2016 TECHNIQUE: Computed axial tomography of the head was obtained. IV contrast was not requested. All CT scans are performed using dose optimization technique as appropriate and may include automated exposure control or mA/KV adjustment according to patient size. FINDINGS: An intracranial bleed is not seen . The ventricles are normal in caliber. No extra-axial fluid collection is noted. Fluid within the sinuses/ mastoids is not seen. IMPRESSION: No acute intracranial abnormality is seen. If patient's symptoms persist MRI of the bra in would be recommended.
[2018-05-17 17:46] LABS: Potassium 3.8 mmol/L (3.5-5.1)
[2018-05-17 18:02] LABS: Urine Blood TRACE (NEG); Urine Glucose 2+ (NEG); Urine Protein 3+ (NEG); Urine Specific Gravity 1.025 (1.005-1.030); Urine pH 5.5 (5.0-7.0)
[2018-05-17 18:14] LABS: Urine Bacteria <20 /HPF (<20); Urine Culture Reflex Order NOT NEEDED; Urine RBC <5 /HPF (NONE SEEN)
--- NOTE | 2018-05-17 18:30 | EDPHYS ---
Physician Documentation [facility] Name: Valentina Franco Age: 38 yrs Sex: Female : 1980 Arrival Date: 05/17/2018 Time: 16:48 Bed 19 Private MD: ED Physician Tiburcio Linder HPI: 05/17 17:06 This 38 yrs old Female presents to ER via Ambulatory with complaints of rn Headache, Dizziness. 17:06 The patient complains of pain to the forehead. The patient describes the headache as rn aching, throbbing. Onset: The symptoms/episode began/occurred 3 day(s) ago. Associated signs and symptoms: Pertinent positives: nausea, Pertinent negatives: altered mental status, fever, neck stiffness, rash, vision loss, weakness, vertigo. Severity of symptoms: At its worst the pain was moderate, in the emergency department the pain is unchanged. The symptoms are alleviated by nothing. the symptoms are aggravated by nothing. The patient has not experienced similar symptoms in the past. Reports headache, aching/throbbing, for 3 days, no fever, + sweating, no previous hx of headaches, no trauma, + nausea, no neck stiffness, feels fatigued and tired. . 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 - Social history:: Smoking status: Patient/guardian denies using tobacco. - Ebola Screening: : Patient denies travel to an Ebola-affected area in the 21 days before illness onset. - Family history:: not pertinent. - Hospitalizations: : No recent hospitalization is reported. ROS: 17:06 Constitutional: Negative for fever, chills, and weight loss, Eyes: Negative for injury, rn pain, redness, and discharge, Neck: Negative for injury, pain, and swelling, Cardiovascular: Negative for chest pain, palpitations, and edema, Respiratory: Negative for shortness of breath, cough, wheezing, and pleuritic chest pain, Abdomen/GI: Negative for abdominal pain, diarrhea, and constipation, MS/Extremity: Negative for injury and deformity, Skin: Negative for injury, rash, and discoloration, Neuro: Negative for numbness, tingling, and seizure. Exam: 17:06 Constitutional: This is a well developed, well nourished patient who is awake, alert, rn and in no acute distress. Head/Face: Normocephalic, atraumatic. Eyes: Pupils equal round and reactive to light, extra-ocular motions intact. Lids and lashes normal. Conjunctiva and sclera are non-icteric and not injected. Cornea within normal limits. Periorbital areas with no swelling, redness, or edema. ENT: MMM Neck: Trachea midline, no thyromegaly or masses palpated, and no cervical lymphadenopathy. Supple, full range of motion without nuchal rigidity, or vertebral point tenderness. No Meningismus. Cardiovascular: tachycardic, regular, no murmur Respiratory: Lungs have equal breath sounds bilaterally, clear to auscultation. No increased work of breathing, no retractions or nasal flaring. Abdomen/GI: soft, non-tender Skin: Warm, dry with normal turgor. Normal color with no rashes, no lesions, and no evidence of cellulitis. MS/ Extremity: Pulses equal, no cyanosis. Neurovascular intact. Full, normal range of motion. Equal circumference. Neuro: Awake and alert, GCS 15, oriented to person, place, time, and situation. Cranial nerves II-XII grossly intact. Motor strength 5/5 in all extremities. Sensory grossly intact. Cerebellar exam normal. Normal gait. Vital Signs: 16:54 BP 122 / 97; Pulse 128; Resp 18; Temp 97.0; Pulse Ox 98% on R/A; Weight 88.45 kg (R); aj1 Height 5 ft. 4 in. (162.56 cm) (R); Pain 10/10; 17:26 BP 140 / 98; Pulse 109; Resp 16; Pulse Ox 98% ; sv 18:00 BP 132 / 96; Pulse 106; Resp 16; Pulse Ox 98% ; sv 19:01 BP 124 / 96; Pulse 103; Resp 16; Pulse Ox 98% ; sv 19:56 BP 104 / 71; Pulse 88; Resp 18; Pulse Ox 99% on R/A; ea 16:54 Body Mass Index 33.47 (88.45 kg, 162.56 cm) aj1 Ogden Coma Score: 18:28 Eye Response: spontaneous(4). Verbal Response: oriented(5). Motor Response: obeys rn commands(6). Total: 15. MDM: 16:57 Patient medically screened. rn 18:28 Differential diagnosis: cluster headache, migraine, tension headache, vasomotor rn headache, flu, strep, viral syndrome, mono, hypertensive PENA. Data reviewed: vital signs, nurses notes, lab test result(s), EKG, radiologic studies, CT scan, and as a result, I will discharge patient. Counseling: I had a detailed discussion with the patient and/or guardian regarding: the historical points, exam findings, and any diagnostic results supporting the discharge/admit diagnosis, lab results, radiology results, the need for outpatient follow up, to return to the emergency department if symptoms worsen or persist or if there are any questions or concerns that arise at home. Response to treatment: the patient's symptoms have mildly improved after treatment, and as a result, I will discharge patient. Special discussion: I discussed with the patient/guardian in detail that at this point there is no indication for admission to the hospital. It is understood, however, that if the symptoms persist or worsen the patient needs to return immediately for re-evaluation. Based on the history and exam findings, there is no indication for further emergent testing or inpatient evaluation. I discussed with the patient/guardian the need to see the primary care provider for further evaluation of the symptoms. 05/17 17:05 Order name: CBC with Diff; Complete Time: 17: rn 05/17 17:05 Order name: Basic Metabolic Panel; Complete Time: 18: rn 05/17 17:05 Order name: Urine Microscopic Only; Complete Time: 18: rn 05/17 17:05 Order name: [place] Screen Profile; Complete Time: 18: rn 05/17 17:05 Order name: Flu; Complete Time: 18: rn 05/17 17:05 Order name: Procalcitonin; Complete Time: 18: rn 05/17 17:05 Order name: CT Head Brain wo Cont; Complete Time: 17:34 rn 05/17 17:13 Order name: Strep; Complete Time: 18: rn 05/17 17:39 Order name: Throat Culture [facility] 05/17 17:47 Order name: Urine Dipstick--Ancillary (enter results); Complete Time: 18:19 bd 05/17 17:47 Order name: Urine --Ancillary (enter results); Complete Time: 18:19 bd 05/17 17:05 Order name: IV Start; Complete Time: 17:26 rn 05/17 17:05 Order name: Urine Test (obtain specimen); Complete Time: 17:26 rn 05/17 17:05 Order name: Urine Dipstick-Ancillary (obtain specimen); Complete Time: 17:26 rn 05/17 17:05 Order name: EKG; Complete Time: 17:06 rn 05/17 17:05 Order name: EKG - Nurse/Tech; Complete Time: 17:26 rn Administered Medications: 17:25 Drug: NS 0.9% 1000 ml Route: IV; Rate: 1000 ml; Site: right antecubital; sv 19:15 Follow up: Response: No adverse reaction; Pain is decreased; IV Status: Completed ea infusion 17:25 Drug: Demerol 25 mg Route: IVP; Site: right antecubital; sv 20:16 Follow up: Response: No adverse reaction; Pain is decreased ea 18:46 Drug: NS 0.9% 1000 ml Route: IV; Rate: 1000 ml; Site: right antecubital; sv Disposition: 05/17/18 18:30 Discharged to Home. Impression: Headache, Infectious mononucleosis. - Condition is Stable. - Discharge Instructions: Dehydration, Adult, General Headache Without Cause, Infectious Mononucleosis. - Medication Reconciliation Form, Thank You Letter, Antibiotic Education, Prescription Opioid Use, Work release form form. - Follow up: Private Physician; When: As needed; Reason: Recheck today's complaints, Re-evaluation by your physician. - Problem is new. - Symptoms have improved. Signatures: Dispatcher [employer] [facility] Reshma Mayberry RN RN aj1 Verde, Stephanie, RN RN sv Nieto, Roman, MD MD rn Antunez, Elena, RN RN ea Corrections: (The following items were deleted from the chart) 20:16 18:30 05/17/2018 18:30 Discharged to Home. Impression: Headache; Infectious ea mononucleosis. Condition is Stable. Forms are Medication Reconciliation Form, Thank You Letter, Antibiotic Education, Prescription Opioid Use. Follow up: Private Physician; When: As needed; Reason: Recheck today's complaints, Re-evaluation by your physician. Problem is new. Symptoms have improved. rn
--- NOTE | 2018-05-17 18:30 | ER ---
Nurse's Notes [facility] Name: Valentina Franco Age: 38 yrs Sex: Female : 1980 Arrival Date: 05/17/2018 Time: 16:48 Bed 19 Private MD: Diagnosis: Headache;Infectious mononucleosis Presentation: 05/17 16:51 Presenting complaint: Patient states: Headache in the back of her head. Patient denies aj1 history of migraines. Denies recent head injury. Reports dizziness and ringing in her ears. Transition of care: patient was not received from another setting of care. Onset of symptoms was May 14, 2018. Risk Assessment: Do you want to hurt yourself or someone else? Patient reports no desire to harm self or others. Initial Sepsis Screen: Does the patient meet any 2 criteria? HR > 90 bpm. No. Patient's initial sepsis screen is negative. Care prior to arrival: None. 16:51 Method Of Arrival: Ambulatory aj1 16:51 Acuity: CYNTHIA 3 aj1 17:00 Initial Sepsis Screen: Does the patient have a suspected source of infection? No. sv Patient's initial sepsis screen is negative. Triage Assessment: 16:54 General: Appears in no apparent distress. uncomfortable, Behavior is calm, cooperative, aj1 appropriate for age. Pain: Complains of pain in occipital area Pain currently is 10 out of 10 on a pain scale. Neuro: Level of Consciousness is awake, alert, obeys commands. Cardiovascular: Patient's skin is warm and dry. Respiratory: Airway is patent Respiratory effort is even, unlabored, Respiratory pattern is regular, symmetrical. 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 - Social history:: Smoking status: Patient/guardian denies using tobacco. - Ebola Screening: : Patient denies travel to an Ebola-affected area in the 21 days before illness onset. - Family history:: not pertinent. - Hospitalizations: : No recent hospitalization is reported. Screenin:00 Abuse screen: Denies threats or abuse. Denies injuries from another. Nutritional sv screening: No deficits noted. Tuberculosis screening: No symptoms or risk factors identified. Fall Risk None identified. Assessment: 17:00 General: Appears uncomfortable, well groomed, Behavior is cooperative, appropriate for sv age, anxious. General: Reports earlier while at work she "got really wet all over.". Pain: Complains of pain in occipital area and base of the skull Pain currently is 10 out of 10 on a pain scale. Quality of pain is described as throbbing, Pain began 2-3 days ago. Is continuous, Alleviated by nothing. Noted to be grimacing, Also complains of photophobia, noise. Neuro: Level of Consciousness is awake, alert, obeys commands, Oriented to person, place, time, situation, Moves all extremities. Full function Gait is steady, Speech is normal, Facial symmetry appears normal, Reports headache occipital area, weakness in "all over". Respiratory: Respiratory effort is even, unlabored, Respiratory pattern is regular, symmetrical. Derm: Skin is normal. 18:20 Reassessment: Patient appears in no apparent distress at this time. No changes from sv previously documented assessment. Patient and/or family updated on plan of care and expected duration. Pain level reassessed. Patient is alert, oriented x 3, equal unlabored respirations, skin warm/dry/pink. 19:15 General: Appears uncomfortable, Behavior is calm, cooperative, appropriate for age. ea Pain: Complains of pain in base of the skull Pain currently is 7 out of 10 on a pain scale. Quality of pain is described as aching. Neuro: Level of Consciousness is awake, alert, obeys commands, Oriented to person, place, time, situation. Cardiovascular: Patient's skin is warm and dry. Respiratory: Airway is patent Respiratory effort is even, unlabored, Respiratory pattern is regular, symmetrical. 19:15 Derm: Skin is pink, warm \\T\\ dry. ea 20:10 Reassessment: Patient and/or family updated on plan of care and expected duration. Pain ea level reassessed. Patient is alert, oriented x 3, equal unlabored respirations, skin warm/dry/pink. Discharge instruction given to patient, verbalized the understanding of instruction. Vital Signs: 16:54 BP 122 / 97; Pulse 128; Resp 18; Temp 97.0; Pulse Ox 98% on R/A; Weight 88.45 kg (R); aj1 Height 5 ft. 4 in. (162.56 cm) (R); Pain 10/10; 17:26 BP 140 / 98; Pulse 109; Resp 16; Pulse Ox 98% ; sv 18:00 BP 132 / 96; Pulse 106; Resp 16; Pulse Ox 98% ; sv 19:01 BP 124 / 96; Pulse 103; Resp 16; Pulse Ox 98% ; sv 19:56 BP 104 / 71; Pulse 88; Resp 18; Pulse Ox 99% on R/A; ea 16:54 Body Mass Index 33.47 (88.45 kg, 162.56 cm) aj1 Oz Coma Score: 18:28 Eye Response: spontaneous(4). Verbal Response: oriented(5). Motor Response: obeys rn commands(6). Total: 15. ED Course: 16:48 Patient arrived in ED. as 16:53 Triage completed. aj1 16:54 Arm band placed on Patient placed in an exam room. aj1 16:57 Tiburcio Linder MD is Attending Physician. rn 17:00 Patient has correct armband on for positive identification. Placed in gown. Bed in low sv position. Call light in reach. Pulse ox on. NIBP on. Door closed. Head of bed elevated. Noise minimized. Lights dimmed. 17:04 Omayra Saul, PETE is Primary Nurse. sv 17:[address] via wheelchair. jj2 17:10 Initial lab(s) drawn, by nh, sent to lab. Inserted saline lock: 20 gauge in right sv antecubital area, using aseptic technique. Blood collected. Flushed right antecubital with 5 ml normal saline. 17:16 CT Head Brain wo Cont In Process Unspecified. EDMS 17:27 Urine collected: clean catch specimen, cloudy. mh5 17:28 Urine Microscopic Only Sent. mh5 17:33 EKG done, by computer hardware technician. reviewed by Tiburcio Linder MD. dt2 19:06 Report given to Estrella FREEMAN. sv 19:56 No provider procedures requiring assistance completed. ea 20:00 IV discontinued, intact, bleeding controlled, No redness/swelling at site. Pressure ea dressing applied. Administered Medications: 17:25 Drug: NS 0.9% 1000 ml Route: IV; Rate: 1000 ml; Site: right antecubital; sv 19:15 Follow up: Response: No adverse reaction; Pain is decreased; IV Status: Completed ea infusion 17:25 Drug: Demerol 25 mg Route: IVP; Site: right antecubital; sv 20:16 Follow up: Response: No adverse reaction; Pain is decreased ea 18:46 Drug: NS 0.9% 1000 ml Route: IV; Rate: 1000 ml; Site: right antecubital; sv Outcome: 18:30 Discharge ordered by . rn 20:13 Discharged to home ambulatory, with family. ea 20:13 Condition: improved 20:13 Discharge instructions given to patient, Instructed on discharge instructions, follow up and referral plans. Demonstrated understanding of instructions, follow-up care. 20:16 Patient left the ED. ea Signatures: Dispatcher [employer] EDReshma Luna RN RN ajOmayra Persaud RN RN sv Jaramillo, Justin jj2 Martinez, Amelia as Nieto, Roman, MD MD rn Martinez, Maria Estrella Ross RN RN ea Teague, Danielle dt2
[2018-05-17 20:39] VITALS: TEMP 97
[2018-05-17 20:42] VITALS: BP 104/71; O2SAT 99
--- NOTE | 2018-05-17 22:15 | EKG ---
Test Date: 2018-05-17 Test Time: 17:28:49 Resource Efficiency Manager: LASHELL MEASUREMENT RESULTS: Intervals: Rate: 115 ME: 150 QRSD: 84 QT: 336 QTc: 464 [place]: P: 12 ME: 150 QRS: -3 T: 4 INTERPRETIVE STATEMENTS: Sinus tachycardia Cannot rule out Anterior infarct, age undetermined Abnormal ECG Compared to ECG 01/17/2018 19:46:43 Myocardial infarct finding now present Sinus rhythm no longer present Electronically Signed On 05-17-18 22:15:40 ENT NURSE by Tres Salazar
== END 2018-05-17 20:16 | disposition home or self-care (01) ==
LOC: ER 16:46
DX: B27.90 Infectious mononucleosis, unspecified without complication (principal); E11.9 Type 2 diabetes mellitus without complications
CPT/HCPCS: 36415; 70450; 80048; 81003; 81015; 81025; 84145; 85025; 86308; 87070; 87081; 87804; 93005; 96361; 96374; 99285; J2175; J7030

== ENCOUNTER 2018-06-10 16:27 | Emergency (ER) | payer OTHER ==
--- OUTSIDE RECORDS SUMMARY | 2018-06-10 16:29 | XMS REPORT | Clinical Summary ---
:1980 Author Organization [facility] Address [address] [place] [address] Care Team Providers Name Role Phone Amira Joyce Primary Care Provider Allergies No Known Allergies Medications Medication Sig Dispensed Refills Start Date End Date Status metFORMIN Take 1,000 mg 0 09/20/2015 Active (GLUCOPHAGE) 1000 by mouth 2 MG tablet (two) times a day with meals. midodrine Take 5 mg by 0 Active (PROAMATINE) 5 MG mouth 3 tablet (three) times a day. MULTIVITAMIN WITH Take 1 tablet 0 Active IRON (HAIR VITAMINS by mouth ORAL) daily. MV,CA,MIN/IRON/FA/G Take by mouth. 0 Active UARANA/CAFF (ONE-A-DAY WOMEN'S ACTIVE ORAL) ARIPiprazole [...] mild pain for up to 30 days. metFORMIN Take 1,000 mg 0 05/05/2018 Discontinued (GLUCOPHAGE) 1,000 by mouth. 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 05/03/2018 Telephone Urogynecology Carina Forrester NP 05/02/2018 Telephone Urogynecology Latoya Vallecillo MD 03/22/2018 Telephone Obstetrics and [place], Gynecology Petr Robison MD 03/08/2018 Telephone Obstetrics and [place], Gynecology Petr Robison MD after 06/09/2017 Family History Medical History Relation Name Comments Diabetes Brother Diabetes Mother Diabetes Sister Relation Name Status Comments Brother Alive Father unknown hx Mother Alive Sister Alive Social History Tobacco Use Types Packs/Day Years Used Date Never Smoker Smokeless Tobacco: Never Used Alcohol Use Drinks/Week oz/Week Comments Yes Megan joe. Sex Assigned at Date Recorded Not on file Job Start Date Occupation Industry Not on file Not on file Not on file Travel History Travel Start Travel End No recent travel history available. Last Filed Vital Signs Vital Sign Reading Time Taken Blood Pressure 115/80 05/05/2018 8:44 AM CDT Pulse 92 05/05/2018 8:44 AM CDT Temperature 36.7 C (98.1 F) 05/05/2018 8:44 AM CDT Respiratory Rate - - Oxygen Saturation - - Inhaled Oxygen Concentration - - Weight - - Height 162.6 cm (5' 4") 05/05/2018 8:44 AM CDT Body Mass Index - - Plan of Treatment Health Maintenance Due Date Last Done Comments MMR VACCINES (1 of 1 - Standard 1979 series) VARICELLA VACCINES (1 of 2 - 1991 2-dose adolescent series) CERVICAL CANCER SCREENING 1999 INFLUENZA VACCINE 02/08/2018 03/19/2013 HEPATITIS B VACCINES Aged Out No longer eligible based on patient's age to complete this topic IPV VACCINES Aged Out No longer eligible based on patient's age to complete this topic MENINGOCOCCAL VACCINE Aged Out No longer eligible based on patient's age to complete this topic Implants Implanted Type Area Software Quality Assurance Specialist Device Shelf Model / Identifier Expiration Serial / Date Lot Kit Nurostmltn Lead Tined 4 Elctrd Spaced 3mm 28cm - [id number] Cardiac Pacing N /A: [employer] 11/03/2019 [id number] / Implanted: 01/07/2016 (Quantity not on file) Leads or N/A NEUROMODULATION / Electrodes or [id number] Accessories Verifyexternal Neurostimulator(Includes 1 Belt) - [id number] Neurosurgical N/A: [employer] 12/07/2020 [id number] / Implanted: 01/07/2016 (Quantity not on file) Implants N/A NEUROMODULATION [id number] / [id number] Neurostimulator Imp Interstim Ii [id number] Nrechrgbl - [id number] - [id number] Neurosurgical Right: [employer] [facility] - 04/23/2017 [id number] / Implanted: Qty: 1 on 01/15/2016 by Latoya Vallecillo MD Implants Coccyx NEUROLOGICAL [id number] / [id number] Cosmetic Consultant Pt For Sacral Nuromodltn Interstim Icon - [id number] Neurosurgical N/ A: [employer] [facility] - [id number] / Implanted: Qty: 1 on 01/15/2016 by Latoya Vallecillo MD Implants N/A NEUROLOGICAL / Matrix Hmstc Floseal 5ml W/ Humn F2 - [id number] Surgical N/A: [id number] / Implanted: Qty: 1 on 05/25/2017 by Latoya Vallecillo MD Implants ; N/A BIOSCIENCE / Expanders; Extenders; Surgical Wires System Sling Mdurethrl Trnsvagnl Mesh Asmbly Advantage Fit - [id number] Urological N/A: BSC 04/18/2020 [id number] / Implanted: Qty: 1 on 05/25/2017 by Latoya Vallecillo MD Implants or N/A UROLOGY/GYNECOLO / Sets [id number] Procedures Procedure Name Priority Date/Time Associated Diagnosis [...] peripheral nerve, initial encounter Urinary incontinence, mixed after 06/09/2017 Results Measure post void residual (05/05/2018 9:15 AM CDT) Total volume, urine 13ml POC urinalysis dipstick (05/05/2018 9:14 AM CDT) Color urine, POC Yellow Clarity urine, POC [...] esterase urine, POC Negative Negative Specimen Urine after 06/09/2017 Insurance Payer Benefit Plan / Group Subscriber ID Type Phone Address [facility] UMR-TML MULTISTATE IEBP xxxxxxxxxxxx PPO Advance Directives Patient has advance care planning documents on file. For more information, please contact:[place] [address]
--- NOTE | 2018-06-10 17:22 | RAD REPORT ---
EXAM DESCRIPTION: CT - Head Brain Wo Cont - 06/10/2018 5:15 pm CLINICAL HISTORY: HEADACHE COMPARISON: Head Brain Wo Cont dated 05/17/2018; Head Brain Wo Cont dated 12/21/2015 TECHNIQUE: All CT scans are performed using dose optimization technique as appropriate and may inclu de automated exposure control or mA/KV adjustment according to patient size. FINDINGS: No intracranial hemorrhage, hydrocephalus or extra-axial fluid collection.No areas of brai n edema or evidence of midline shift. The paranasal sinuses and mastoids are clear. The calvarium is intact. IMPRESSION: No acute intracranial abnormality.
[2018-06-10] MEDS ORDERED: METOCLOPRAMIDE 10 MG/2mL INJ ONE (17:25)
[2018-06-10] MEDS ORDERED: DIPHENHYDRAMINE 50 MG/ML VIAL ONE ×2 (17:25→20:58)
[2018-06-10] MEDS ORDERED: NA CHLORIDE 0.9% 1,000 ML ONE (17:25)
[2018-06-10] MEDS ORDERED: NA CHLORIDE 0.9% 50 ML IV ONE (17:26)
[2018-06-10 17:41] LABS: Absolute Monocytes 0.5 K/uL (0.1-1.3); Absolute Neutrophil 2.9 K/uL (1.8-8.0); Basophils % 0.9 % (0-1.3); Eosinophils % 1.9 % (0-4.4); Hematocrit 41.8 % (36.0-45.0); Lymphocytes % 45.4 % (15.3-44.8); MCH 28.2 pg (27.0-35.0); MCV 82.8 fL (80-100); MPV 7.6 fL (7.6-11.3); RBC Red Blood Cell Count 5.05 M/uL (3.86-4.86)
[2018-06-10 18:02] LABS: ALT/SGPT 43 U/L (12-78); AST/SGOT 21 U/L (15-37); Albumin 3.9 g/dL (3.4-5.0); Alkaline Phosphatase 54 U/L (45-117); BUN Blood Urea Nitrogen 18 mg/dL (7-18); Bicarbonate 23 mmol/L (21-32); Bilirubin Total 0.3 mg/dL (0.2-1.0); Creatine Phosphokinase 71 U/L (26-192); Glucose Level 201 mg/dL (74-106); Potassium 3.8 mmol/L (3.5-5.1); Sodium Level 139 mmol/L (136-145); Troponin (Emerg Dept Use Only) < 0.02 ng/mL (0.0-0.045)
[2018-06-10 19:18] LABS: Urine Blood TRACE (NEG); Urine Glucose NEGATIVE (NEG); Urine Protein 2+ (NEG); Urine Specific Gravity 1.025 (1.005-1.030)
[2018-06-10] MEDS ORDERED: KETOROLAC 30 MG/ML INJ ONE (19:36)
--- NOTE | 2018-06-10 20:43 | RAD REPORT ---
EXAM DESCRIPTION: CT - Neck Angio - 06/10/2018 8:33 pm CLINICAL HISTORY: headache Syncope, neck pain COMPARISON: C Spine Wo Con dated 08/19/2016; CT HEAD CSPINE MPR WO CONTRAST dated 11/17/2014; Head Brai n Wo Cont dated 06/10/2018; Head Brain Wo Cont dated 05/17/2018 TECHNIQUE: CT angiography of the neck vessels was performed with MIPs. All CT scans are performed using dose optimization technique as appropriate and may include automated exposure control or mA/KV adjustment according to patient size. FINDINGS: No significant flow abnormality is seen of the common carotid bilaterally. No significant stenosis is identified involving the cervical segments of both internal carotid arteri es. Normal flow is seen within both vertebral arteries. IMPRESSION: No significant flow abnormality of the neck vessels is identified.
--- NOTE | 2018-06-10 20:51 | RAD REPORT ---
EXAM DESCRIPTION: CT - Head angio - 06/10/2018 8:29 pm CLINICAL HISTORY: headache Syncope COMPARISON: Head Brain Wo Cont dated 06/10/2018; Head Brain Wo Cont dated 05/17/2018; Neck Angio dated 06/10/2018 TECHNIQUE: CT angiography of the head was performed with MIPs. All CT scans are performed using dose optimization technique as appropriate and may include automated exposure control or mA/KV adjustment according to patient size. FINDINGS: No evidence of aneurysm is detected. No flow-limiting stenosis or vascular malformation id entified. Antegrade flow is seen in the vertebral arteries. The vertebral arteries are codominant. The visualized dural venous sinuses are patent. IMPRESSION: No significant flow abnormality is detected.
[2018-06-10] MEDS ORDERED: DEXAMETHASONE 10 MG/ML VIAL ONE (20:57)
[2018-06-10] MEDS ORDERED: FAMOTIDINE 20 MG/2 ML VIAL IV ONE (20:58)
[2018-06-10] MEDS ORDERED: FENTANYL CITR 100 MCG/2 ML ONE (21:24)
--- NOTE | 2018-06-10 21:53 | EDPHYS ---
Physician Documentation [facility] Name: Valentina Franco Age: 38 yrs Sex: Female : 1980 Arrival Date: 06/10/2018 Time: 16:29 Bed 28 Private MD: None, None ED Physician Johan Giron HPI: 06/10 17:12 This 38 yrs old Female presents to ER via Ambulatory with complaints of jmm Headache > 24hrs Old, Numbness. 17:12 The patient complains of pain to the left side of the back of head, left occipital area jmm and right side of the back of head. The patient describes the headache as throbbing. Onset: The symptoms/episode began/occurred gradually, 3 week(s) ago. Associated signs and symptoms: Pertinent positives: vomiting. This is a 38 year old female with a history of depression, DM, HLP that presents to the ED with a headache beginning apporx 3 weeks ago. Patient was diagnosed with mono, follow up with her PCP and states she has had no relief of her symptoms. Patient states she developed numbness to the left side of her face and left arm beginning at 11 am. Denies weakness. . 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 - Social history:: Smoking status: Patient/guardian denies using tobacco. - Ebola Screening: : Patient negative for fever greater than or equal to 101.5 degrees Fahrenheit, and additional compatible Ebola Virus Disease symptoms Patient denies exposure to infectious person Patient denies travel to an Ebola-affected area in the 21 days before illness onset No symptoms or risks identified at this time. ROS: 17:12 Constitutional: Negative for fever, chills, and weight loss, Eyes: Negative for injury, jmm pain, redness, and discharge, Cardiovascular: Negative for chest pain, palpitations, and edema, Respiratory: Negative for shortness of breath, cough, wheezing, and pleuritic chest pain. 17:12 Neuro: Positive for headache. 17:12 All other systems are negative. Exam: 17:12 Head/Face: atraumatic. Eyes: EOMI, no conjunctival erythema appreciated ENT: Moist jmm Mucus Membranes Neck: Trachea midline, Supple Chest/axilla: Normal chest wall appearance and motion. Cardiovascular: Regular rate and rhythm. No edema appreciated Respiratory: Normal respirations, no respiratory distress appreciated Abdomen/GI: Non distended, soft Back: Normal ROM Skin: General appearance color normal MS/ Extremity: Moves all extremities, no obvious deformities appreciated, no edema noted to the lower extremities Neuro: Awake and alert, normal gait 17:12 Constitutional: The patient appears alert. 17:12 Constitutional: The patient appears anxious, uncomfortable. Vital Signs: 16:47 BP 123 / 89; Pulse 110; Resp 18; Temp 97.9; Pulse Ox 98% on R/A; Weight 92.99 kg (M); sg Pain 10/10; 19:05 BP 109 / 82; Pulse 89; Resp 18; Pulse Ox 100% on R/A; Pain 5/10; mg2 21:29 BP 101 / 68; Pulse 88; Resp 18; Pulse Ox 100% on R/A; mg2 MDM: 16:44 Patient medically screened. [facility] 21:52 Data reviewed: vital signs, nurses notes, lab test result(s), radiologic studies, CT jmm scan. Counseling: I had a detailed discussion with the patient and/or guardian regarding: the historical points, exam findings, and any diagnostic results supporting the discharge/admit diagnosis, radiology results, the need for outpatient follow up, to return to the emergency department if symptoms worsen or persist or if there are any questions or concerns that arise at home. Response to treatment: the patient's symptoms have mildly improved after treatment. 21:52 ED course: Patient's pain mildly relieved in the ED. CTA negative. PE showed no acute jmm deficits. Patient admitted to discontinuing antidepressants 3 weeks prior. Patient advised to follow up with her psychiatrist for reevaluation. Patient understood and agrees with the plan of care. Patient otherwise given strict return precautions. patient understood and agrees with the plan of care. . 06/10 16:46 Order name: CBC with Diff jmm 06/10 16:46 Order name: CMP [facility] 06/10 16:46 Order name: Lactate [facility] 06/10 16:46 Order name: Procalcitonin [facility] 06/10 16:46 Order name: Troponin (emerg Dept Use Only) [facility] 06/10 16:46 Order name: CPK [facility] 06/10 17:43 Order name: CBC with Automated Diff; Complete Time: 18:02 EDMS 06/10 18:03 Order name: Comprehensive Metabolic Panel; Complete Time: 18:05 EDMS 06/10 18:03 Order name: Creatine Phosphokinase; Complete Time: 18:05 EDMS 06/10 18:03 Order name: Troponin (Emerg Dept Use Only); Complete Time: 18:05 EDMS 06/10 18:03 Order name: Lactate; Complete Time: 18:05 EDMS 06/10 18:40 Order name: Procalcitonin; Complete Time: 18:52 MS 06/10 19:15 Order name: Urine Dipstick--Ancillary (enter results) [facility] 06/10 19:15 Order name: Urine --Ancillary (enter results) [facility] 06/10 16:46 Order name: Saline Lock; Complete Time: 17:47 [facility] 06/10 16:46 Order name: EKG - Nurse/Tech; Complete Time: 17:47 [facility] 06/10 16:46 Order name: CT Head Brain wo Cont [facility] 06/10 17:24 Order name: CT; Complete Time: 18:02 [facility] 06/10 19:45 Order name: Urine --Ancillary; Complete Time: 20:19 [facility] 06/10 19:45 Order name: Urine Dipstick-Ancillary; Complete Time: 20:19 [facility] 06/10 20:44 Order name: CT; Complete Time: 20:48 [facility] 06/10 20:52 Order name: CT; Complete Time: 20:58 EDMS 06/10 18:53 Order name: Urine Test (obtain specimen); Complete Time: 19:16 [facility] Administered Medications: 17:47 Drug: NS 0.9% 1000 ml Route: IV; Rate: 1 bolus; Site: left antecubital; mg2 18:35 Follow up: Response: No adverse reaction; IV Status: Completed infusion mg2 17:47 Drug: Reglan 10 mg Route: IVP; Site: left antecubital; mg2 18:35 Follow up: Response: No adverse reaction; Marked relief of symptoms mg2 17:47 Drug: diphenhydrAMINE 25 mg Route: IVP; Site: left antecubital; mg2 18:34 Follow up: Response: No adverse reaction; Marked relief of symptoms mg2 19:30 Drug: Ketorolac 30 mg Route: IVP; Site: left antecubital; mg2 21:18 Follow up: Response: No adverse reaction; Pain is unchanged, physician notified mg2 21:11 Drug: Decadron - Dexamethasone 10 mg Route: IVP; Site: left antecubital; mg2 21:22 Follow up: Response: No adverse reaction mg2 21:11 Drug: Pepcid 20 mg Route: IVP; Site: left antecubital; mg2 21:23 Follow up: Response: No adverse reaction mg2 21:11 Drug: Benadryl 25 mg Route: IVP; Site: left antecubital; mg2 21:23 Follow up: Response: No adverse reaction; Marked relief of symptoms mg2 21:17 Drug: fentaNYL (PF) 50 mcg Route: IVP; Site: left antecubital; mg2 21:24 Follow up: Response: No adverse reaction; Pain is decreased mg2 Disposition: 06/10/18 21:53 Discharged to Home. Impression: Headache. - Condition is Stable. - Discharge Instructions: General Headache Without Cause. - Medication Reconciliation Form, Thank You Letter, Antibiotic Education, Prescription Opioid Use form. - Follow up: Private Physician; When: 2 - 3 days; Reason: Recheck today's complaints, Continuance of care, Re-evaluation by your physician. Addendum: 06/12/2018 07:28 Co-signature as Attending Physician, Johan Giron MD I agree with the assessment and c lai plan of care. Signatures: Dispatcher [employer] Rafy Wells RN RN sg Anderson, Corey, MD MD cha Mickail, Joel, PA PA jmm Gardose, Michele RN RN mg2 Corrections: (The following items were deleted from the chart) 06/10 22:05 21:53 06/10/2018 21:53 Discharged to Home. Impression: Headache. Condition is Stable. mg2 Forms are Medication Reconciliation Form, Thank You Letter, Antibiotic Education, Prescription Opioid Use. Follow up: Private Physician; When: 2 - 3 days; Reason: Recheck today's complaints, Continuance of care, Re-evaluation by your physician. jeana
--- NOTE | 2018-06-10 21:53 | ER ---
Nurse's Notes [facility] Name: Valentina Franco Age: 38 yrs Sex: Female : 1980 Arrival Date: 06/10/2018 Time: 16:29 Bed 28 Private MD: None, None Diagnosis: Headache Presentation: 06/10 16:44 Presenting complaint: Patient states: Headache for 3 weeks in the back of my head, sg reports numbness to left side of face and left arm that started at 1100 today, denies weakness, no facial droop noted at this time. Transition of care: patient was not received from another setting of care. Onset of symptoms was June 10, 2018. Risk Assessment: Do you want to hurt yourself or someone else? Patient reports no desire to harm self or others. Initial Sepsis Screen: Does the patient meet any 2 criteria? No. Patient's initial sepsis screen is negative. Does the patient have a suspected source of infection? No. Patient's initial sepsis screen is negative. Care prior to arrival: None. 16:44 Method Of Arrival: Ambulatory sg 16:44 Acuity: CYNTHIA 3 sg Triage Assessment: 16:46 Neuro: Level of Consciousness is awake, alert, obeys commands, Oriented to person, sg place, time, situation, Process Control Specialist are equal bilaterally Moves all extremities. Full function Gait is steady, Speech is normal, Facial symmetry appears normal, Pupils are PERRLA, Reports headache in entire occipital area, numbness in left cheek since 1100. 20:27 Headache History: The patient has had previous headaches. General: Appears in no mg2 apparent distress. comfortable. General: Behavior is calm, cooperative. Pain: Also complains of no other associated symptoms. 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 - Social history:: Smoking status: Patient/guardian denies using tobacco. - Ebola Screening: : Patient negative for fever greater than or equal to 101.5 degrees Fahrenheit, and additional compatible Ebola Virus Disease symptoms Patient denies exposure to infectious person Patient denies travel to an Ebola-affected area in the 21 days before illness onset No symptoms or risks identified at this time. Screenin:52 Abuse screen: Denies threats or abuse. Denies injuries from another. Nutritional mg2 screening: No deficits noted. Tuberculosis screening: No symptoms or risk factors identified. Fall Risk IV access (20 points). Assessment: 18:35 General: Appears in no apparent distress. comfortable, Behavior is calm, cooperative. mg2 Pain: Complains of pain in right side of the back of head and left occipital area Pain does not radiate. Pain currently is 5 out of 10 on a pain scale. Quality of pain is described as aching, Pain began gradually, 3 weeks ago. Neuro: Level of Consciousness is awake, alert, obeys commands, Oriented to person, place, time, situation, Reports headache occipital area, that is the "worst ever", since 3 weeks ago. Cardiovascular: Reports chest pain. Respiratory: Airway is patent Respiratory effort is even, unlabored, Respiratory pattern is regular, symmetrical. GI: No signs and/or symptoms were reported involving the gastrointestinal system. : No signs and/or symptoms were reported regarding the genitourinary system. EENT: No signs and/or symptoms were reported regarding the EENT system. Derm: Skin is intact, is healthy with good turgor, Skin is pink, warm \\T\\ dry. normal. Musculoskeletal: No signs and/or symptoms reported regarding the musculoskeletal system. 19:06 Reassessment: Patient appears in no apparent distress at this time. Patient and/or mg2 family updated on plan of care and expected duration. Pain level reassessed. Patient is alert, oriented x 3, equal unlabored respirations, skin warm/dry/pink. 20:40 Reassessment: Pt returned from CT Scan and tech reports that pt is having swelling of fc her eyes post injection of contrast. Went to examine pt and she states that she is having burning of eyes and only very slight swelling noted. 20:43 Reassessment: Jason WALSH informed of pts symptoms. He went to see and examine her. fc Vital Signs: 16:47 BP 123 / 89; Pulse 110; Resp 18; Temp 97.9; Pulse Ox 98% on R/A; Weight 92.99 kg (M); sg Pain 10/10; 19:05 BP 109 / 82; Pulse 89; Resp 18; Pulse Ox 100% on R/A; Pain 5/10; mg2 21:29 BP 101 / 68; Pulse 88; Resp 18; Pulse Ox 100% on R/A; mg2 ED Course: 16:29 Patient arrived in ED. sb2 16:30 None, None is Private Physician. sb2 16:39 Jason Connolly PA is PHCP. jmm 16:39 Johan Giron MD is Attending Physician. jmm 16:44 Arm band placed on. sg 16:46 Triage completed. sg 16:[address] via wheelchair. kw1 17:13 Shashi Aragon, PETE is Primary Nurse. mg2 17:16 CT completed. Patient moved back from CT. cw1 17:48 No provider procedures requiring assistance completed. Inserted saline lock: 20 gauge mg2 in left antecubital area, using aseptic technique. Blood collected. 20:27 Patient has correct armband on for positive identification. mg2 20:30 CT completed. Patient tolerated procedure well. Patient moved back from CT. bq 20:30 Note: pt instructed not to take her metformin for 48hrs s/p ct w iv contrast. bq 22:04 IV discontinued, intact, bleeding controlled, No redness/swelling at site. Pressure mg2 dressing applied. Administered Medications: 17:47 Drug: NS 0.9% 1000 ml Route: IV; Rate: 1 bolus; Site: left antecubital; mg2 18:35 Follow up: Response: No adverse reaction; IV Status: Completed infusion mg2 17:47 Drug: Reglan 10 mg Route: IVP; Site: left antecubital; mg2 18:35 Follow up: Response: No adverse reaction; Marked relief of symptoms mg2 17:47 Drug: diphenhydrAMINE 25 mg Route: IVP; Site: left antecubital; mg2 18:34 Follow up: Response: No adverse reaction; Marked relief of symptoms mg2 19:30 Drug: Ketorolac 30 mg Route: IVP; Site: left antecubital; mg2 21:18 Follow up: Response: No adverse reaction; Pain is unchanged, physician notified mg2 21:11 Drug: Decadron - Dexamethasone 10 mg Route: IVP; Site: left antecubital; mg2 21:22 Follow up: Response: No adverse reaction mg2 21:11 Drug: Pepcid 20 mg Route: IVP; Site: left antecubital; mg2 21:23 Follow up: Response: No adverse reaction mg2 21:11 Drug: Benadryl 25 mg Route: IVP; Site: left antecubital; mg2 21:23 Follow up: Response: No adverse reaction; Marked relief of symptoms mg2 21:17 Drug: fentaNYL (PF) 50 mcg Route: IVP; Site: left antecubital; mg2 21:24 Follow up: Response: No adverse reaction; Pain is decreased mg2 Outcome: 21:53 Discharge ordered by . jeana 22:04 Discharged to home ambulatory, with family. mg2 22:04 Condition: good 22:04 Discharge instructions given to patient, family, Instructed on discharge instructions, follow up and referral plans. Demonstrated understanding of instructions, follow-up care. 22:05 Patient left the ED. mg2 Signatures: Rafy Zarate RN RN sg Mickail, Joel, PA PA jmm Quilty, Betty bq Chretien, Felicia, RN RN fc Woodley, Crystal cw1 Katharina Villeda kw1 Kavitha Allred sb2 Shashi Aragon RN RN mg2
[2018-06-10 22:19] VITALS: TEMP 97.9
[2018-06-10 22:20] VITALS: O2SAT 100
[2018-06-10 22:21] VITALS: BP 101/68
--- NOTE | 2018-06-11 16:51 | EKG ---
Test Date: 2018-06-10 Test Time: 17:41:31 Supervisor Drawing: MEASUREMENT RESULTS: Intervals: Rate: 87 IL: 140 QRSD: 86 QT: 388 QTc: 466 [place]: P: 26 IL: 140 QRS: 43 T: 36 INTERPRETIVE STATEMENTS: Normal sinus rhythm Cannot rule out Anterior infarct, age undetermined Abnormal ECG Compared to ECG 05/17/2018 17:28:49 Sinus tachycardia no longer present Myocardial infarct finding still present Electronically Signed On 06-11-18 16:50:32 SERVICE ELECTRICIAN by Tres Salazar
== END 2018-06-10 22:05 | disposition home or self-care (01) ==
LOC: ER 16:27
DX: R51 Headache (principal); E11.9 Type 2 diabetes mellitus without complications; F32.9 Major depressive disorder, single episode, unspecified; F41.9 Anxiety disorder, unspecified
CPT/HCPCS: 36415; 70450; 70496; 70498; 80053; 81003; 81025; 82550; 83605; 84145; 84484; 85025; 93005; 96361; 96374; 96375; 99284; J1100; J2765; J3010; J7030; Q9967

== ENCOUNTER 2018-08-16 14:54 | Emergency (ER) | payer OTHER ==
--- OUTSIDE RECORDS SUMMARY | 2018-08-16 14:57 | XMS REPORT ---
:1980 Author Organization [facility] Address [address] [place] [address] [address] [place] [address] Care Team Providers Name Role Phone Unavailable Unavailable Unavailable Problems This patient has no known problems. Allergies, Adverse Reactions, Alerts This patient has no known allergies or adverse reactions. Medications This patient has no known medications.
--- OUTSIDE RECORDS SUMMARY | 2018-08-16 14:57 | XMS REPORT | Clinical Summary ---
:1980 Author Organization [facility] Address [address] [place] [address] Care Team Providers Name Role Phone Amira [...] by mouth ORAL) daily. MV,CA,MIN/IRON/FA/G Take by 0 Active UARANA/CAFF mouth. (ONE-A-DAY WOMEN'S ACTIVE ORAL) ARIPiprazole Take 5 mg by 0 03/16/2018 Active (ABILIFY) 5 MG mouth daily. tablet escitalopram Take 20 mg by 0 04/06/2018 Active (LEXAPRO) 20 MG mouth daily. tablet loratadine Take 10 mg by 0 03/16/2018 Active (CLARITIN) 10 mg mouth daily. tablet venlafaxine XR Take by mouth 0 04/06/2018 Active (EFFEXOR-XR) 75 MG daily. 24 hr capsule metFORMIN Take 1,000 mg 0 05/05/2018 Discontinued [...] Latoya Vallecillo MD 03/22/2018 Telephone Obstetrics and [place], Gynecology Petr Robison MD 03/08/2018 Telephone Obstetrics and [place], Gynecology Petr Robison MD after 08/15/2017 Family History Medical History Relation Name Comments [...] VACCINE 02/08/2018 03/19/2013 Implants Implanted Type Area Recruitment Officer Device Shelf Model / Identifier Expiration Serial / Date Lot Kit Nurostmltn Lead Tined 4 Elctrd Spaced 3mm 28cm - [id number] Cardiac Pacing N /A: [employer] 11/03/2019 [id number] / Implanted: 01/07/2016 (Quantity not on file) Leads or N/A NEUROMODULATION / Electrodes or [id number] Accessories Verifyexternal Neurostimulator(Includes 1 Belt) - [id number] Neurosurgical N/A: [employer] 12/07/2020 [id number] / Implanted: 01/07/2016 (Quantity not on file) Implants N/A NEUROMODULATION [id number] / [id number] Neurostimulator Imp Interstim Ii [id number] Nrechrgbl - [id number] - [id number] Neurosurgical Right: [employer] [facility] - 04/23/2017 [id number] / Implanted: Qty: 1 on 01/15/2016 by Latoya Vallecillo MD Implants Coccyx NEUROLOGICAL [id number] / [id number] Funeral Director Pt For Sacral Nuromodltn Interstim Icon - [id number] Neurosurgical N/ A: [employer] [facility] - [id number] / Implanted: Qty: 1 on 01/15/2016 by Latoya Vallecillo MD Implants N/A NEUROLOGICAL / Matrix Hmstc Floseal 5ml W/ Humn F2 - [id number] Surgical N/A: [id number] / Implanted: Qty: 1 on 05/25/2017 by Latoya Vallecillo MD Implants ; N/A BIOSCIENCE / Expanders; Extenders; Surgical Wires System Sling Mdurethrl Trnsvagnl Mesh Asmbly Advantage Fit - [id number] Urological N/A: BSC 04/18/2020 [id number] / Implanted: Qty: 1 on 05/25/2017 by Latoya Vallecillo MD Implants or N/A UROLOGY/GYNECOLO / Sets [id number] Procedures Procedure Name Priority Date/Time Associated Diagnosis [...] nerve, initial encounter Urinary incontinence, mixed after 08/15/2017 Results Measure post void residual (05/05/2018 9:15 [...] urine, POC Negative Negative Specimen Urine after 08/15/2017 Insurance Payer Benefit Plan / Group Subscriber ID Type Phone Address [facility] UMR-TML MULTISTATE IEBP xxxxxxxxxxxx PPO Advance Directives Patient has advance care planning documents on file. For more information, please contact:Ronnell Haider[address] [place] [address]
[2018-08-16] MEDS ORDERED: NA CHLORIDE 0.9% 1,000 ML ONE (17:14)
[2018-08-16 17:26] LABS: Absolute Lymphocytes (CBC) 2.7 K/uL (0.7-4.9); Absolute Monocytes 0.4 K/uL (0.1-1.3); Absolute Neutrophil 3.2 K/uL (1.8-8.0); Basophils % 0.7 % (0-1.3); Eosinophils % 1.8 % (0-4.4); Hematocrit 39.7 % (36.0-45.0); Lymphocytes % 41.8 % (15.3-44.8); MPV 7.3 fL (7.6-11.3); Monocytes % 6.7 % (3.3-12.3); RBC Red Blood Cell Count 4.65 M/uL (3.86-4.86)
[2018-08-16 17:29] LABS: Urine Blood TRACE (NEG); Urine Glucose 2+ (NEG); Urine Protein 3+ (NEG); Urine Specific Gravity >1.030 (1.005-1.030); Urine pH 5.5 (5.0-7.0)
[2018-08-16 17:30] LABS: Urine Bacteria >50 /HPF (<20); Urine RBC <5 /HPF (NONE SEEN)
[2018-08-16 17:31] LABS: Urine Culture Reflex Order NOT NEEDED
--- NOTE | 2018-08-16 17:40 | RAD REPORT ---
EXAM DESCRIPTION: CT - Stone Protocol - 08/16/2018 5:18 pm CLINICAL HISTORY: Abdominal pain. Hematuria COMPARISON: January 2018 TECHNIQUE: Computed axial tomography of the abdomen pelvis was obtained without oral or IV contrast. Lack of IV and oral contrast limits evaluation of solid organs, bowel, and vessels. Coronal reformat faith images were obtained and reviewed. All CT scans are performed using dose optimization technique as appropriate and may include automated exposure control or mA/KV adjustment according to patient size. FINDINGS: A 2 millimeter right renal calculus is present. Hydronephrosis is not noted. A left renal calculus is not seen. An ureteral calculus is not noted. A bladder calculus is not present. The liver is mildly enlarged. Spleen, pancreas and adrenals appear grossly normal Diverticula stem from the colon. There is mild stranding adjacent to the hepatic flexure of the colon The appendix appears normal IMPRESSION: Mild diverticulitis involving the hepatic flexure of the colon 2 millimeter nonobstructing right renal calculus
[2018-08-16 17:45] LABS: Potassium 3.8 mmol/L (3.5-5.1)
[2018-08-16] MEDS ORDERED: Levofloxacin 750mg IV 750 MG/150 ML BAG IV ONE (18:14)
[2018-08-16] MEDS ORDERED: METRONIDAZOLE 500mg IVPB 500 MG/100 ML BAG IV ONE (18:15)
--- NOTE | 2018-08-16 18:35 | ER ---
Nurse's Notes [facility] Name: Valentina Franco Age: 38 yrs Sex: Female : 1980 Arrival Date: 08/16/2018 Time: 14:56 Bed 19 Private MD: Diagnosis: Diverticulitis of large intestine without perforation or abscess without bleeding;Hematuria, unspecified;Urinary tract infection, site not specified Presentation: 08/16 15:52 Presenting complaint: Patient states: 'I went to the [facility] and there was aa5 blood in my urine so they treated me for a UTI but it's not getting better and now it's just blood coming out and only a little bit of urine". Pt reports urinary frequency and urgency and carl flank pain that began Tuesday. Transition of care: patient was not received from another setting of care. Onset of symptoms was August 2018. Risk Assessment: Do you want to hurt yourself or someone else? Patient reports no desire to harm self or others. Initial Sepsis Screen: Does the patient meet any 2 criteria? No. Patient's initial sepsis screen is negative. Does the patient have a suspected source of infection? No. Patient's initial sepsis screen is negative. Care prior to arrival: None. 15:52 Method Of Arrival: Ambulatory aa5 15:52 Acuity: CYNTHIA 3 aa5 Triage Assessment: 17:12 General: Appears in no apparent distress. uncomfortable, Behavior is calm, cooperative, hj appropriate for age. 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 - Social history:: Smoking status: Patient/guardian denies using tobacco. - Ebola Screening: : No symptoms or risks identified at this time. - Family history:: not pertinent. - Hospitalizations: : No recent hospitalization is reported. Screenin:12 Abuse screen: Denies threats or abuse. Denies injuries from another. Nutritional hj screening: No deficits noted. Tuberculosis screening: No symptoms or risk factors identified. Fall Risk None identified. Assessment: 17:14 General: Appears in no apparent distress. uncomfortable, Behavior is calm, cooperative, hj appropriate for age. Pain:. Neuro: Level of Consciousness is awake, alert, obeys commands, Oriented to person, place, time, situation, Appropriate for age. Cardiovascular: Capillary refill < 3 seconds Patient's skin is warm and dry. Respiratory: Airway is patent Respiratory effort is even, unlabored, Respiratory pattern is regular, symmetrical. GI: No signs and/or symptoms were reported involving the gastrointestinal system. : No signs and/or symptoms were reported regarding the genitourinary system. EENT: No signs and/or symptoms were reported regarding the EENT system. Derm: No signs and/or symptoms reported regarding the dermatologic system. Musculoskeletal: No signs and/or symptoms reported regarding the musculoskeletal system. 18:24 Reassessment: Patient and/or family updated on plan of care and expected duration. Pain hj level reassessed. Patient is alert, oriented x 3, equal unlabored respirations, skin warm/dry/pink. awaiting IVF antibiotics to be done; for D/C;. 19:15 Reassessment: Patient appears in no apparent distress at this time. Patient and/or cc3 family updated on plan of care and expected duration. Pain level reassessed. Patient is alert, oriented x 3, equal unlabored respirations, skin warm/dry/pink. Received this female patient from morning shift PETE Zuniga as a case of urinary problem. With IV cannula gauge 20 at the left ACV with ongoing Levofloxacin 750 mg infusing well. For discharge home after the IV antibiotics as endorsed. 20:27 Reassessment: Patient appears in no apparent distress at this time. Patient and/or cc3 family updated on plan of care and expected duration. Pain level reassessed. Patient is alert, oriented x 3, equal unlabored respirations, skin warm/dry/pink. 20:30 Reassessment: IV antibiotics completed, patient discharged home with prescription cc3 given. IV cannula removed and patient left ER vitally stable and ambulatory. Vital Signs: 15:55 BP 125 / 91; Pulse 106; Resp 18 S; Temp 98.6(O); Pulse Ox 98% ; Weight 93.89 kg (R); aa5 Height 5 ft. 4 in. (162.56 cm) (R); Pain 9/10; 17:17 BP 124 / 89; Pulse 95; Resp 18; Pulse Ox 100% on R/A; hj 19:30 BP 127 / 87; Pulse 84; Resp 19 S; Pulse Ox 100% on R/A; cc3 20:25 BP 121 / 76; Pulse 76; Resp 17 S; Pulse Ox 100% on R/A; cc3 15:55 Body Mass Index 35.53 (93.89 kg, 162.56 cm) aa5 ED Course: 14:56 Patient arrived in ED. mr 15:52 Arm band placed on. aa5 15:54 Triage completed. aa5 16:45 Tiburcio Linder MD is Attending Physician. rn 16:47 Efrain Marx RN is Primary Nurse. hj 17:12 Patient has correct armband on for positive identification. Placed in gown. Bed in low hj position. Call light in reach. Side rails up X 1. 17:13 Urine collected: clean catch specimen, cloudy. [facility] 17:13 Initial lab(s) drawn, by pa, sent to lab. Inserted saline lock: 20 gauge in left hj antecubital area, using aseptic technique. Blood collected. 17:14 Urine --Ancillary (enter results) Sent. 5 17:14 Urine Dipstick--Ancillary (enter results) Sent. 5 17:14 Urine Culture Sent. 5 17:14 Urine Microscopic Only Sent. 5 17:18 CT Stone Protocol In Process Unspecified. EDMS 17:20 CT completed. Patient tolerated procedure well. Patient moved to CT via wheelchair. vr Patient moved back from CT. 19:10 Report given to PETE Torres. hj 20:30 No provider procedures requiring assistance completed. IV discontinued, intact, cc3 bleeding controlled, No redness/swelling at site. Pressure dressing applied. Administered Medications: 17:14 Drug: NS 0.9% 1000 ml Route: IV; Rate: 1000 ml; Site: left antecubital; hj 19:12 Follow up: IV Status: Completed infusion hj 17:57 Drug: Flagyl 500 mg Volume: 100 ml; Route: IVPB; Rate: 200 ml/hr; Infused Over: 30 hj mins; Site: left antecubital; 19:13 Follow up: IV Status: Completed infusion 19:02 Drug: LevaQUIN 750 mg Volume: 150 ml; Route: IVPB; Infused Over: 90 mins; Site: left antecubital; 19:13 Follow up: IV Status: Completed infusion Outcome: 18:34 Discharge ordered by . rn 20:30 Discharged to home ambulatory. cc3 20:30 Condition: stable 20:30 Discharge instructions given to patient, Instructed on discharge instructions, follow up and referral plans. medication usage, Demonstrated understanding of instructions, follow-up care, medications, Prescriptions given X 4. 20:37 Patient left the ED. cc3 Addendum: 08/19/2018 07:26 Addendum: Culture Results: Positive urine culture. No further action required. Bacteria h b sensitive to prescribed antibiotic. Signatures: Dispatcher [employer] EDMD Greta Cali Roman, MD MD rn Calderon, Audri, RN RN aa5 Davis, Victoria vr Joaquin, Henry, RN RN hj Baxter, Heather, RN RN hb Martinez, Maria Melissa Bedoya cc3 Corrections: (The following items were deleted from the chart) 08/16 20:25 19:30 Pulse 84bpm; Resp 19bpm; Spontaneous; Pulse Ox 100% RA; cc3 cc3
--- NOTE | 2018-08-16 18:36 | EDPHYS ---
Physician Documentation [facility] Name: Valentina Franco Age: 38 yrs Sex: Female : 1980 Arrival Date: 08/16/2018 Time: 14:56 Bed 19 Private MD: ED Physician Tiburcio Linder HPI: 08/16 17:11 This 38 yrs old Female presents to ER via Ambulatory with complaints of rn Urinary Problem. 17:11 The patient presents with urinary symptoms, dysuria, frequency. rn 17:12 Onset: The symptoms/episode began/occurred 2 day(s) ago. Modifying factors: The rn symptoms are alleviated by nothing, the symptoms are aggravated by urinating. Severity of symptoms: At their worst the symptoms were moderate, in the emergency department the symptoms are unchanged. The patient has not experienced similar symptoms in the past. The patient has been recently seen by a physician:. Reports seen this week, diagnosed with UTI, given cipro, has taken for 3 days, no fever, + chills, + low back pain a hematuria, no hx of kidney stones.. 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 - Social history:: Smoking status: Patient/guardian denies using tobacco. - Ebola Screening: : No symptoms or risks identified at this time. - Family history:: not pertinent. - Hospitalizations: : No recent hospitalization is reported. ROS: 17:12 Constitutional: + chills Eyes: Negative for injury, pain, redness, and discharge, rn Neck: Negative for injury, pain, and swelling, Cardiovascular: Negative for chest pain, palpitations, and edema, Respiratory: Negative for shortness of breath, cough, wheezing, and pleuritic chest pain, Abdomen/GI: Negative for nausea, vomiting, diarrhea, and constipation, Back: + low back pain : + hematuria MS/Extremity: Negative for injury and deformity, Skin: Negative for injury, rash, and discoloration, Neuro: Negative for headache, weakness, numbness, tingling, and seizure. Exam: 17:12 Constitutional: This is a well developed, well nourished patient who is awake, alert, rn and in no acute distress. Head/Face: Normocephalic, atraumatic. Eyes: Pupils equal round and reactive to light, extra-ocular motions intact. Lids and lashes normal. Conjunctiva and sclera are non-icteric and not injected. Cornea within normal limits. Periorbital areas with no swelling, redness, or edema. ENT: MMM Abdomen/GI: soft, suprapubic tenderness, no rebound Back: No spinal tenderness. No costovertebral tenderness. Full range of motion. Skin: Warm, dry with normal turgor. Normal color with no rashes, no lesions, and no evidence of cellulitis. MS/ Extremity: Pulses equal, no cyanosis. Neurovascular intact. Full, normal range of motion. Equal circumference. Neuro: Awake and alert, GCS 15, oriented to person, place, time, and situation. Cranial nerves II-XII grossly intact. Motor strength 5/5 in all extremities. Sensory grossly intact. Vital Signs: 15:55 BP 125 / 91; Pulse 106; Resp 18 S; Temp 98.6(O); Pulse Ox 98% ; Weight 93.89 kg (R); aa5 Height 5 ft. 4 in. (162.56 cm) (R); Pain 9/10; 17:17 BP 124 / 89; Pulse 95; Resp 18; Pulse Ox 100% on R/A; hj 19:30 BP 127 / 87; Pulse 84; Resp 19 S; Pulse Ox 100% on R/A; cc3 20:25 BP 121 / 76; Pulse 76; Resp 17 S; Pulse Ox 100% on R/A; cc3 15:55 Body Mass Index 35.53 (93.89 kg, 162.56 cm) aa5 MDM: 16:45 Patient medically screened. rn 17:57 Differential diagnosis: kidney stone, urinary tract infection, diverticulitis. Data rn reviewed: vital signs, nurses notes, lab test result(s), radiologic studies, CT scan, and as a result, I will discharge patient. Counseling: I had a detailed discussion with the patient and/or guardian regarding: the historical points, exam findings, and any diagnostic results supporting the discharge/admit diagnosis, lab results, radiology results, the need for outpatient follow up, to return to the emergency department if symptoms worsen or persist or if there are any questions or concerns that arise at home. Response to treatment: the patient's symptoms have mildly improved after treatment, and as a result, I will discharge patient. 08/16 15:14 Order name: Urine Culture snw 08/16 15:14 Order name: Urine Microscopic Only; Complete Time: 17:48 snw 08/16 16:58 Order name: CBC with Diff; Complete Time: 17:48 rn 08/16 16:58 Order name: Basic Metabolic Panel; Complete Time: 17:48 rn 08/16 16:58 Order name: Procalcitonin; Complete Time: 19:12 rn 08/16 17:01 Order name: Urine Dipstick--Ancillary (enter results); Complete Time: 17:48 bd 08/16 15:14 Order name: Urine Test (obtain specimen); Complete Time: 16:57 snw 08/16 15:14 Order name: Urine Dipstick-Ancillary (obtain specimen); Complete Time: 16:57 snw 08/16 16:58 Order name: IV Start; Complete Time: 17:14 rn 08/16 16:58 Order name: CT Stone Protocol; Complete Time: 17:48 rn 08/16 17:01 Order name: Urine --Ancillary (enter results); Complete Time: 17:48 bd Administered Medications: 17:14 Drug: NS 0.9% 1000 ml Route: IV; Rate: 1000 ml; Site: left antecubital; hj 19:12 Follow up: IV Status: Completed infusion hj 17:57 Drug: Flagyl 500 mg Volume: 100 ml; Route: IVPB; Rate: 200 ml/hr; Infused Over: 30 hj mins; Site: left antecubital; 19:13 Follow up: IV Status: Completed infusion hj 19:02 Drug: LevaQUIN 750 mg Volume: 150 ml; Route: IVPB; Infused Over: 90 mins; Site: left hj antecubital; 19:13 Follow up: IV Status: Completed infusion Disposition: 08/16/18 18:34 Discharged to Home. Impression: Diverticulitis of large intestine without perforation or abscess without bleeding, Hematuria, unspecified, Urinary tract infection, site not specified. - Condition is Stable. - Discharge Instructions: Diverticulitis, Hematuria, Adult, Urinary Tract Infection, Adult. - Prescriptions for Flagyl 500 mg Oral Tablet - take 1 tablet by ORAL route every 8 hours for 10 days; 30 tablet. Levaquin 500 mg Oral Tablet - take 1 tablet by ORAL route once daily for 10 days; 10 tablet. Zofran ODT 4 mg Oral tablet,disintegrating - place 1 tablet by TRANSLINGUAL route every 8 hours As needed; 20 tablet. Tylenol- Codeine #3 300-30 mg Oral Tablet - take 1 tablet by ORAL route every 6 hours As needed; 20 tablet. - Medication Reconciliation Form, Thank You Letter, Antibiotic Education, Prescription Opioid Use form. - Follow up: Private Physician; When: As needed; Reason: Recheck today's complaints, Re-evaluation by your physician. - Problem is new. - Symptoms have improved. Signatures: Dispatcher [employer] EDMS Nona Hernandez, CAS-C INSURANCE COMMISSIONER-Csnw Tiburcio Linder MD MD rn Calderon, Audri RN RN aa5 Efrain Marx RN RN Melissa Marlow cc3 Corrections: (The following items were deleted from the chart) 20:37 18:34 08/16/2018 18:34 Discharged to Home. Impression: Diverticulitis of large cc3 intestine without perforation or abscess without bleeding; Hematuria, unspecified; Urinary tract infection, site not specified. Condition is Stable. Discharge Instructions: Diverticulitis, Hematuria, Adult, Urinary Tract Infection, Adult. Prescriptions for Flagyl 500 mg Oral Tablet - take 1 tablet by ORAL route every 8 hours for 10 days; 30 tablet, Levaquin 500 mg Oral Tablet - take 1 tablet by ORAL route once daily for 10 days; 10 tablet, Zofran ODT 4 mg Oral tablet,disintegrating - place 1 tablet by TRANSLINGUAL route every 8 hours As needed; 20 tablet, Tylenol-Codeine #3 300-30 mg Oral Tablet - take 1 tablet by ORAL route every 6 hours As needed; 20 tablet. and Forms are Medication Reconciliation Form, Thank You Letter, Antibiotic Education, Prescription Opioid Use. Follow up: Private Physician; When: As needed; Reason: Recheck today's complaints, Re-evaluation by your physician. Problem is new. Symptoms have improved. rn
[2018-08-16 22:13] VITALS: TEMP 98.6
[2018-08-16 22:14] VITALS: O2SAT 100
[2018-08-16 22:16] VITALS: BP 121/76
== END 2018-08-16 20:37 | disposition home or self-care (01) ==
LOC: ER 14:54
DX: N39.0 Urinary tract infection, site not specified (principal); K57.32 Diverticulitis of large intestine without perforation or abscess without bleeding; E11.9 Type 2 diabetes mellitus without complications
CPT/HCPCS: 36415; 74176; 76377; 80048; 81003; 81015; 81025; 84145; 85025; 87077; 87086; 87088; 87186; 96361; 96365; 96375; 99284; J7030

== ENCOUNTER 2018-11-16 10:25 | Emergency (ER) | payer OTHER ==
--- OUTSIDE RECORDS SUMMARY | 2018-11-16 10:27 | XMS REPORT | Clinical Summary ---
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 05/03/2018 Telephone Urogynecology Carina Forrester NP 05/02/2018 Telephone Urogynecology Latoya Vallecillo MD 03/22/2018 Telephone Obstetrics and Hobsam, Gynecology Petr Robison MD 03/08/2018 Telephone Obstetrics and Hobsam, Gynecology Petr Robison MD after 11/15/2017 Family History Medical History Relation Name Comments [...] Comments CERVICAL CANCER SCREENING 1999 INFLUENZA VACCINE 02/08/2019 03/19/2013 Implants Implanted Type 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 Device Shelf Model / Identifier Expiration Serial / Date Lot Kit Nurostmltn Lead Tined 4 Elctrd Spaced 3mm 28cm - [id number] Cardiac Pacing N /A: [employer] 11/03/2019 [id number] / Implanted: 01/07/2016 (Quantity not on file) Leads or N/A NEUROMODULATION / Electrodes or [id number] Accessories Verifyexternal Neurostimulator(Includes 1 Belt) - [id number] Neurosurgical N/A: [employer] 12/07/2020 [id number] / Implanted: 01/07/2016 (Quantity not on file) Implants N/A NEUROMODULATION [id number] / [id number] Neurostimulator Imp Interstim Ii [id number] Nrechrgbl - [id number] - [id number] Neurosurgical Right: [employer] [facility] - 04/23/2017 [id number] / Implanted: Qty: 1 on 01/15/2016 by Latoya Vallecillo MD Implants Coccyx NEUROLOGICAL [id number] / [id number] Solar Sales Pt For Sacral Nuromodltn Interstim Icon - [id number] Neurosurgical N/ A: [employer] [facility] - [id number] / Implanted: Qty: 1 on 01/15/2016 by Latoya Vallecillo MD Implants N/A NEUROLOGICAL / Matrix Hmstc Floseal 5ml W/ Humn F2 - [id number] Surgical N/A: [id number] / Implanted: Qty: 1 on 05/25/2017 by Latoya Vallecillo MD Implants ; N/A BIOSCIENCE / Expanders; Extenders; Surgical Wires System Sling Mdurethrl Trnsvagnl Mesh Asmbly Advantage Fit - [id number] Urological N/A: BSC 04/18/2020 [id number] / Implanted: Qty: 1 on 05/25/2017 by Latoya Vallecillo MD Implants or N/A UROLOGY/GYNECOLO / Sets [id number] Procedures Procedure Name Priority Date/Time Associated Diagnosis [...] nerve, initial encounter Urinary incontinence, mixed after 11/15/2017 Results Measure post void residual (05/05/2018 9:15 [...] urine, POC Negative Negative Specimen Urine after 11/15/2017 Insurance Payer Benefit Plan / Group Subscriber ID Type Phone Address [facility] UMR-[id number] MULTISTATE IEBP xxxxxxxxxxxx PPO [id number] [place] [address] Advance Directives Patient has advance care planning documents on file. For more information, please contact:Ronnell [address] [place] [address]
--- OUTSIDE RECORDS SUMMARY | 2018-11-16 10:27 | XMS REPORT ---
:1980 Author Organization [facility] Address [address] [place] [address] [address] [place] [address] Care Team Providers Name Role Phone Unavailable Unavailable Unavailable Problems This patient has no known problems. Allergies, Adverse Reactions, Alerts This patient has no known allergies or adverse reactions. Medications This patient has no known medications.
[2018-11-16] MEDS ORDERED: NA CHLORIDE 0.9% 1,000 ML ONE (11:20)
[2018-11-16 11:58] LABS: Absolute Lymphocytes (CBC) 2.8 K/uL (0.7-4.9); Absolute Monocytes 0.7 K/uL (0.1-1.3); Absolute Neutrophil 5.2 K/uL (1.8-8.0); Basophils % 0.7 % (0-1.3); Eosinophils % 1.2 % (0-4.4); Hematocrit 36.7 % (36.0-45.0); Lymphocytes % 31.6 % (15.3-44.8); MPV 7.9 fL (7.6-11.3); Monocytes % 7.6 % (3.3-12.3); RBC Red Blood Cell Count 4.36 M/uL (3.86-4.86)
[2018-11-16 12:25] LABS: ALT/SGPT 34 U/L (12-78); AST/SGOT 15 U/L (15-37); Albumin 3.6 g/dL (3.4-5.0); Alkaline Phosphatase 58 U/L (45-117); BUN Blood Urea Nitrogen 21 mg/dL (7-18); Bicarbonate 24 mmol/L (21-32); Bilirubin Direct < 0.1 mg/dL (0-0.2); Bilirubin Total 0.3 mg/dL (0.2-1.0); Glucose Level 269 mg/dL (74-106); Lipase 310 U/L (73-393); Potassium 3.6 mmol/L (3.5-5.1); Protein, Total 7.6 g/dL (6.4-8.2); Sodium Level 139 mmol/L (136-145)
[2018-11-16 12:46] LABS: Urine Bacteria 20-50 /HPF (<20); Urine Culture Reflex Order REFLEXED; Urine RBC 20-50 /HPF (NONE SEEN)
[2018-11-16] MEDS ORDERED: CEFTRIAXONE/SWI 1gm 1 GM/10 ML SYR ONE (13:27)
--- NOTE | 2018-11-16 13:28 | RAD REPORT ---
EXAM DESCRIPTION: CT - Abdomen Pelvis W Contrast - 11/16/2018 1:17 pm CLINICAL HISTORY: Left lower quadrant pain, hematuria COMPARISON: CT study November 2017 TECHNIQUE: Biphasic, helical CT imaging of the abdomen and pelvis was performed following 100 ml non -ionic IV contrast. Oral contrast was given. All CT scans are performed using dose optimization technique as appropriate and may include automated exposure control or mA/KV adjustment according to patient size. FINDINGS: No suspicious findings in the lung bases. The liver, spleen, and pancreas show no suspicious findings. Liver does show a fatty infiltration pat tern. Cholecystectomy clips are present. No biliary tree dilatation. Symmetric renal function is seen with no hydronephrosis or suspicious renal mass. No pyelonephritis o r acute parenchymal process. No adrenal abnormality. Uterus and left ovary show no suspicious findings. Right ovary contains a 3.2 cm cyst similar to November 2017. No enlargement. No calcification, septation or other suspicious characteristic. No gastric dilatation or gastric wall thickening. Small bowel shows no suspicious finding. Moderate s tool volume is present in the colon. There is no appendicitis. Minimal left-sided diverticulosis with out diverticulitis. No acute GI process is identifiable. Adkins of the urinary bladder are mildly prominent for the amount of distention. Correlation is needed with any findings for cystitis. No free air, free fluid or inflammatory stranding. No hernia, mass or bulky lymphadenopathy. Postsu rgical changes are noted to the anterior abdominal wall stable from prior imaging. No suspicious bony findings. IMPRESSION: Urinary bladder adkins are slightly thickened and correlation is needed with any findings for cystitis. No pyelonephritis or other acute process. No acute GI finding identifiable. Patient has very minimal left-sided diverticulosis. A 3.2 centimeter right ovarian cyst is present without suspicious characteristics. This is unchanged from November 2017. Fatty infiltration of the liver.
--- NOTE | 2018-11-16 13:37 | ER ---
Nurse's Notes [facility] Name: Valentina Franco Age: 38 yrs Sex: Female : 1980 Arrival Date: 11/16/2018 Time: 10:26 Bed 13 Private MD: Diagnosis: Urinary tract infection, site not specified;Unspecified abdominal pain Presentation: 11/16 10:43 Presenting complaint: Patient states: sharp, stabbing LLQ pain that and blood tinged ss urine that began after falling from standing position last week. Pt reports that pain has increased and she now has debby blood dripping while trying to urinate and unable to empty her bladder. Transition of care: patient was not received from another setting of care. Onset of symptoms is unknown. Risk Assessment: Do you want to hurt yourself or someone else? Patient reports no desire to harm self or others. Initial Sepsis Screen: Does the patient meet any 2 criteria? No. Patient's initial sepsis screen is negative. Does the patient have a suspected source of infection? No. Patient's initial sepsis screen is negative. Care prior to arrival: None. 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 - Social history:: Smoking status: unknown. - Ebola Screening: : Patient denies exposure to infectious person Patient denies travel to an Ebola-affected area in the 21 days before illness onset. Screenin:40 Abuse screen: Denies threats or abuse. Nutritional screening: No deficits noted. rb1 Tuberculosis screening: No symptoms or risk factors identified. Fall Risk None identified. Assessment: 10:40 General: Appears in no apparent distress. comfortable, Behavior is calm, cooperative. rb1 Pain: Complains of pain in suprapubic area and left lower quadrant Pain currently is 6 out of 10 on a pain scale. Neuro: Level of Consciousness is awake, alert, obeys commands, Oriented to person, place, time, situation. Neuro: Cardiovascular: Capillary refill < 3 seconds is brisk in bilateral fingers. Respiratory: Airway is patent Respiratory effort is even, unlabored, Respiratory pattern is regular, symmetrical. GI: Bowel sounds present X 4 quads. Abd is soft Abdomen is tender to palpation in left lower quadrant. : Urine is cloudy, Reports blood tinged urine at home. Derm: Skin is dry, Skin is normal, Skin temperature is warm. 11:40 Reassessment: Patient appears in no apparent distress at this time. No changes from rb1 previously documented assessment. 12:40 Reassessment: Patient appears in no apparent distress at this time. Patient and/or rb1 family updated on plan of care and expected duration. Pain level reassessed. Patient is alert, oriented x 3, equal unlabored respirations, skin warm/dry/pink. 13:48 Reassessment: Patient appears in no apparent distress at this time. Patient and/or rb1 family updated on plan of care and expected duration. Pain level reassessed. Patient is alert, oriented x 3, equal unlabored respirations, skin warm/dry/pink. Vital Signs: 10:48 BP 127 / 88; Pulse 98; Resp 18; Temp 98.8(TE); Pulse Ox 99% on R/A; Weight 92.08 kg; ss Height 5 ft. 4 in. (162.56 cm); Pain 9/10; 11:46 BP 129 / 79; Pulse 89; Resp 16; Temp 98.7(O); Pulse Ox 100% on R/A; Pain 7/10; rb1 12:45 BP 131 / 83; Pulse 85; Resp 16; Temp 98.5(O); Pulse Ox 98% on R/A; Pain 7/10; rb1 13:44 BP 128 / 81; Pulse 84; Resp 19; Temp 98.7(O); Pulse Ox 99% on R/A; Pain 6/10; rb1 10:48 Body Mass Index 34.84 (92.08 kg, 162.56 cm) ED Course: 10:26 Patient arrived in ED. as 10:40 Patient has correct armband on for positive identification. Bed in low position. Call rb1 light in reach. Side rails up X 1. Pulse ox on. NIBP on. 10:41 Shaan Sheppard NP is PHCP. pm1 10:41 Doron Mueller MD is Attending Physician. pm1 10:45 Lisa Bolivar, RN is Primary Nurse. rb1 10:48 Triage completed. ss 10:48 Arm band placed on right wrist. ss 11:15 Inserted saline lock: 22 gauge in right antecubital area, using aseptic technique. rb1 Blood collected. 12:02 Bladder scan completed. 100 ml before urination. rb1 13:17 CT completed. Patient tolerated procedure well. Patient moved to CT via wheelchair. Patient moved back from CT. 13:17 CT Abd/Pelvis - W/Contrast: IV contrast only In Process Unspecified. EDMS 14:11 No provider procedures requiring assistance completed. IV discontinued, intact, rb1 bleeding controlled, No redness/swelling at site. Pressure dressing applied. Administered Medications: 11:23 Drug: NS 0.9% 1000 ml Route: IV; Rate: 1000 ml; Site: right antecubital; rb1 12:33 Follow up: IV Status: Completed infusion rb1 13:45 Drug: Rocephin 1 grams Route: IV; Rate: calculated rate; Site: right antecubital; rb1 14:09 Follow up: Response: No adverse reaction; IV Status: Completed infusion rb1 Outcome: 13:36 Discharge ordered by MD. pm1 14:11 Patient left the ED. rb1 14:11 Discharged to home ambulatory. rb1 14:11 Condition: stable 14:11 Discharge instructions given to patient, Instructed on discharge instructions, follow up and referral plans. medication usage, Demonstrated understanding of instructions, follow-up care, medications, Prescriptions given X 2. Addendum: 11/19/2018 09:54 Addendum: Culture Results: Positive urine culture. No further action required. Bacteria i w sensitive to prescribed antibiotic. Signatures: Dispatcher [employer] EDTX Aleksandra Elizalde Amelia as Williams, Irene, RN RN iw Elvie Henderson RN RN ss Lisa Bolivar, PETE RN rb1 Shaan Sheppard, MONICA DRIVABILITY TECHNICIAN pm1 Corrections: (The following items were deleted from the chart) 11/16 10:48 10:42 Presenting complaint: ss ss
--- NOTE | 2018-11-16 13:37 | EDPHYS ---
Physician Documentation [facility] Name: Valentina Franco Age: 38 yrs Sex: Female : 1980 Arrival Date: 11/16/2018 Time: 10:26 Bed 13 Private MD: ED Physician Doron Mueller HPI: 11/16 11:17 This 38 yrs old Female presents to ER via Ambulatory with complaints of pm1 Urinary Retention, Abdominal Pain. 11:17 The patient presents with abdominal pain in the left lower quadrant, suprapubic. Onset: pm1 The symptoms/episode began/occurred 9 day(s) ago. The symptoms do not radiate. Associated signs and symptoms: Pertinent positives: dysuria, Pertinent negatives: nausea, vomiting, and diarrhea, chest pain, shortness of breath. The symptoms are described as sharp. Modifying factors: The symptoms are alleviated by nothing, the symptoms are aggravated by nothing. Severity of pain: in the emergency department the pain is actually worse. The patient has not experienced similar symptoms in the past. The patient has not recently seen a physician. Patient presents with pain to LLQ and suprapubic area after falling on steps 9 days ago. 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 - Social history:: Smoking status: unknown. - Ebola Screening: : Patient denies exposure to infectious person Patient denies travel to an Ebola-affected area in the 21 days before illness onset. ROS: 11:20 Constitutional: Negative for fever, chills, and weight loss, Eyes: Negative for injury, pm1 pain, redness, and discharge, ENT: Negative for injury, pain, and discharge, Neck: Negative for injury, pain, and swelling, Cardiovascular: Negative for chest pain, palpitations, and edema, Respiratory: Negative for shortness of breath, cough, wheezing, and pleuritic chest pain. 11:20 Back: Negative for injury and pain. 11:20 MS/Extremity: Negative for injury and deformity, Skin: Negative for injury, rash, and discoloration, Neuro: Negative for headache, weakness, numbness, tingling, and seizure. 11:20 Abdomen/GI: Positive for of the suprapubic area and left lower quadrant, Negative for nausea, vomiting, and diarrhea. 11:20 : Positive for urinary frequency, small amounts, difficulty urinating, Negative for burning with urination. Exam: 11:20 Constitutional: This is a well developed, well nourished patient who is awake, alert, pm1 and in no acute distress. Head/Face: Normocephalic, atraumatic. Eyes: Pupils equal round and reactive to light, extra-ocular motions intact. Lids and lashes normal. Conjunctiva and sclera are non-icteric and not injected. Cornea within normal limits. Periorbital areas with no swelling, redness, or edema. ENT: Nares patent. No nasal discharge, no septal abnormalities noted. Tympanic membranes are normal and external auditory canals are clear. Oropharynx with no redness, swelling, or masses, exudates, or evidence of obstruction, uvula midline. Mucous membranes moist. Neck: Trachea midline, no thyromegaly or masses palpated, and no cervical lymphadenopathy. Supple, full range of motion without nuchal rigidity, or vertebral point tenderness. No Meningismus. Chest/axilla: Normal chest wall appearance and motion. Nontender with no deformity. No lesions are appreciated. Cardiovascular: Regular rate and rhythm with a normal S1 and S2. No gallops, murmurs, or rubs. Normal PMI, no JVD. No pulse deficits. Respiratory: Lungs have equal breath sounds bilaterally, clear to auscultation and percussion. No rales, rhonchi or wheezes noted. No increased work of breathing, no retractions or nasal flaring. 11:20 Back: No spinal tenderness. No costovertebral tenderness. Full range of motion. Skin: Warm, dry with normal turgor. Normal color with no rashes, no lesions, and no evidence of cellulitis. MS/ Extremity: Pulses equal, no cyanosis. Neurovascular intact. Full, normal range of motion. 11:20 Abdomen/GI: Inspection: abdomen appears normal, Bowel sounds: normal, Palpation: soft, mild abdominal tenderness, in the suprapubic area, mass, is not appreciated, rebound tenderness, is not appreciated. 11:20 Neuro: Orientation: is normal, Motor: is normal, moves all fours. Vital Signs: 10:48 BP 127 / 88; Pulse 98; Resp 18; Temp 98.8(TE); Pulse Ox 99% on R/A; Weight 92.08 kg; ss Height 5 ft. 4 in. (162.56 cm); Pain 9/10; 11:46 BP 129 / 79; Pulse 89; Resp 16; Temp 98.7(O); Pulse Ox 100% on R/A; Pain 7/10; rb1 12:45 BP 131 / 83; Pulse 85; Resp 16; Temp 98.5(O); Pulse Ox 98% on R/A; Pain 7/10; rb1 13:44 BP 128 / 81; Pulse 84; Resp 19; Temp 98.7(O); Pulse Ox 99% on R/A; Pain 6/10; rb1 10:48 Body Mass Index 34.84 (92.08 kg, 162.56 cm) ss MDM: 10:47 Patient medically screened. pm1 13:34 Data reviewed: vital signs. Data interpreted: Pulse oximetry: on room air is 99 %. pm1 Interpretation: normal. Counseling: I had a detailed discussion with the patient and/or guardian regarding: the historical points, exam findings, and any diagnostic results supporting the discharge/admit diagnosis, lab results, radiology results, the need for outpatient follow up, to return to the emergency department if symptoms worsen or persist or if there are any questions or concerns that arise at home. 11/16 10:59 Order name: Basic Metabolic Panel pm1 11/16 10:59 Order name: CBC with Diff pm1 11/16 10:59 Order name: Creatinine for Radiology pm11/16 10:59 Order name: Hepatic Function pm1 11/16 10:59 Order name: Lipase; Complete Time: 12:59 pm1 11/16 10:59 Order name: Urine Microscopic Only; Complete Time: 12:59 pm1 11/16 10:59 Order name: CT Abd/Pelvis - W/Contrast: IV contrast only; Complete Time: 13:33 pm1 11/16 10:59 Order name: Basic Metabolic Panel; Complete Time: 12:59 EDMS 11/16 10:59 Order name: CBC with Automated Diff; Complete Time: 12:04 EDMA 11/16 10:59 Order name: Creatinine (Radiology Only); Complete Time: 12:59 EDMA 11/16 10:59 Order name: Liver (Hepatic) Function; Complete Time: 12:59 [facility] 11/16 11:44 Order name: Urine Dipstick--Ancillary (enter results) 11/16 11:45 Order name: Urine --Ancillary (enter results); Complete Time: 14:02 11/16 12:48 Order name: Urine Culture [facility] 11/16 10:59 Order name: Bladder Scanner; Complete Time: 13:59 pm1 11/16 10:59 Order name: IV Saline Lock; Complete Time: 11:52 pm1 11/16 10:59 Order name: Labs collected and sent; Complete Time: 11:23 pm1 11/16 10:59 Order name: Urine Dipstick-Ancillary (obtain specimen); Complete Time: 11:44 pm1 Administered Medications: 11:23 Drug: NS 0.9% 1000 ml Route: IV; Rate: 1000 ml; Site: right antecubital; rb1 12:33 Follow up: IV Status: Completed infusion rb1 13:45 Drug: Rocephin 1 grams Route: IV; Rate: calculated rate; Site: right antecubital; rb1 14:09 Follow up: Response: No adverse reaction; IV Status: Completed infusion rb1 Disposition: 15:32 Co-signature as Attending Physician, Doron Mueller MD I agree with the assessment and kdr plan of care. Disposition: 11/16/18 13:36 Discharged to Home. Impression: Urinary tract infection, site not specified, Unspecified abdominal pain. - Condition is Stable. - Discharge Instructions: Abdominal Pain, Adult, Urinary Tract Infection, Adult. - Prescriptions for Bactrim DS 800- 160 mg Oral Tablet - take 1 tablet by ORAL route every 12 hours for 10 days; 20 tablet. Tylenol- Codeine #3 300-30 mg Oral Tablet - take 2 tablets by ORAL route every 6 hours As needed; 20 tablet. - Work release form, Medication Reconciliation Form, Thank You Letter, Antibiotic Education, Prescription Opioid Use form. - Follow up: Emergency Department; When: As needed; Reason: Worsening of condition. Follow up: Private Physician; When: 2 - 3 days; Reason: Recheck today's complaints, Continuance of care, Re-evaluation by your physician. - Problem is new. - Symptoms have improved. Signatures: Dispatcher [employer] EDMS Doron Mueller MD MD [facility] Elvie Henderson RN RN ss Lisa Bolivar RN RN rb1 Shaan Sheppard, [address] [employer] pm1 Corrections: (The following items were deleted from the chart) 14:11 13:36 11/16/2018 13:36 Discharged to Home. Impression: Urinary tract infection, site rb1 not specified; Unspecified abdominal pain. Condition is Stable. Forms are Medication Reconciliation Form, Thank You Letter, Antibiotic Education, Prescription Opioid Use. Follow up: Emergency Department; When: As needed; Reason: Worsening of condition. Follow up: Private Physician; When: 2 - 3 days; Reason: Recheck today's complaints, Continuance of care, Re-evaluation by your physician. Problem is new. Symptoms have improved. pm1
[2018-11-16 13:58] LABS: Urine Specific Gravity 1.015 (1.005-1.030)
[2018-11-16 14:21] VITALS: BP 127/88; TEMP 98.8; O2SAT 99
[2018-11-16 14:33] LABS: Urine Blood 3+ (NEG); Urine Glucose 3+ (NEG); Urine Protein 2+ (NEG); Urine Specific Gravity 1.015 (1.005-1.030); Urine pH 5.5 (5.0-7.0)
== END 2018-11-16 14:11 | disposition home or self-care (01) ==
LOC: ER 10:25
DX: N39.0 Urinary tract infection, site not specified (principal); F32.9 Major depressive disorder, single episode, unspecified; F41.9 Anxiety disorder, unspecified; E11.9 Type 2 diabetes mellitus without complications; E78.00 Pure hypercholesterolemia, unspecified
CPT/HCPCS: 36415; 74177; 80048; 80076; 81003; 81015; 81025; 83690; 85025; 87077; 87086; 87088; 87186; 96361; 96365; 99284; J0696; J7030; Q9967

== ENCOUNTER 2018-11-19 16:45 | Emergency (ER) | payer OTHER ==
--- OUTSIDE RECORDS SUMMARY | 2018-11-19 16:48 | XMS REPORT ---
:1980 [facility] Address [address] [place] [address] [address] [place] [address] Care Team Providers Name Role Phone Unavailable Unavailable Unavailable Problems This patient has no known problems. Allergies, Adverse Reactions, Alerts This patient has no known allergies or adverse reactions. Medications This patient has no known medications.
--- OUTSIDE RECORDS SUMMARY | 2018-11-19 16:48 | XMS REPORT | Clinical Summary ---
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 Shelf Model / Identifier Expiration Serial / Date Lot Kit Nurostmltn Lead Tined 4 Elctrd Spaced 3mm 28cm - [id number] Cardiac Pacing N /A: [employer] 11/03/2019 [id number] / Implanted: 01/07/2016 (Quantity not on file) Leads or N/A NEUROMODULATION / Electrodes or [id number] Accessories Verifyexternal Neurostimulator(Includes 1 Belt) - [id number] Neurosurgical N/A: [employer] 12/07/2020 [id number] / Implanted: 01/07/2016 (Quantity not on file) Implants N/A NEUROMODULATION [id number] / [id number] Neurostimulator Imp Interstim Ii [id number] Nrechrgbl - [id number] - [id number] Neurosurgical Right: [employer] [facility] - 04/23/2017 [id number] / Implanted: Qty: 1 on 01/15/2016 by Latoya Vallecillo MD Implants Coccyx NEUROLOGICAL [id number] / [id number] Bread Room Hand Pt For Sacral Nuromodltn Interstim Icon - [id number] Neurosurgical N/ A: [employer] [facility] - [id number] / Implanted: Qty: 1 on 01/15/2016 by Latoya Vallecillo MD Implants N/A NEUROLOGICAL / Matrix Hmstc Floseal 5ml W/ Humn F2 - [id number] Surgical N/A: [id number] / Implanted: Qty: 1 on 05/25/2017 by Latoya Vallecillo MD Implants ; N/A BIOSCIENCE / Expanders; Extenders; Surgical Wires System Sling Mdurethrl Trnsvagnl Mesh Asmbly Advantage Fit - [id number] Urological N/A: BSC 04/18/2020 [id number] / Implanted: Qty: 1 on 05/25/2017 by Latoya Vallecillo MD Implants or N/A UROLOGY/GYNECOLO / Sets [id number] Procedures Procedure Name Priority Date/Time Associated Diagnosis [...] nerve, initial encounter Urinary incontinence, mixed after 11/18/2017 Results Measure post void residual (05/05/2018 9:15 [...] urine, POC Negative Negative Specimen Urine after 11/18/2017 Insurance Payer Benefit Plan / Group Subscriber ID Type Phone Address [facility] [id number] IEBP xxxxxxxxxxxx PPO [address] [place] [address] Advance Directives Patient has advance care planning documents on file. For more information, please contact:Ronnell [address] [place] [address]
[2018-11-19 17:25] LABS: Urine Blood NEGATIVE (NEG); Urine Glucose 2+ (NEG); Urine Protein 3+ (NEG); Urine Specific Gravity 1.025 (1.005-1.030); Urine pH 5.5 (5.0-7.0)
[2018-11-19 17:36] LABS: Urine Amorphous Sediment 2+ /HPF (NONE SEEN); Urine Bacteria >50 /HPF (<20); Urine Culture Reflex Order NOT NEEDED; Urine Mucus 2+ /HPF (NONE SEEN); Urine RBC <5 /HPF (NONE SEEN)
[2018-11-19] MEDS ORDERED: NA CHLORIDE 0.9% 1,000 ML ONE (17:39)
[2018-11-19] MEDS ORDERED: ONDANSETRON 4 MG/2 ML VIAL ONE ×2 (17:39→18:52)
[2018-11-19] MEDS ORDERED: KETOROLAC 30 MG/ML INJ ONE (17:39)
[2018-11-19 17:52] LABS: Absolute Lymphocytes (CBC) 2.4 K/uL (0.7-4.9); Absolute Monocytes 0.3 K/uL (0.1-1.3); Absolute Neutrophil 2.8 K/uL (1.8-8.0); Basophils % 0.9 % (0-1.3); Eosinophils % 1.6 % (0-4.4); Hematocrit 39.5 % (36.0-45.0); MPV 7.7 fL (7.6-11.3); RBC Red Blood Cell Count 4.77 M/uL (3.86-4.86)
[2018-11-19 18:31] LABS: ALT/SGPT 94 U/L (12-78); AST/SGOT 56 U/L (15-37); Albumin 3.7 g/dL (3.4-5.0); Alkaline Phosphatase 67 U/L (45-117); BUN Blood Urea Nitrogen 17 mg/dL (7-18); Bicarbonate 21 mmol/L (21-32); Bilirubin Direct < 0.1 mg/dL (0-0.2); Bilirubin Total 0.4 mg/dL (0.2-1.0); Glucose Level 261 mg/dL (74-106); Lipase 278 U/L (73-393); Potassium 4.1 mmol/L (3.5-5.1); Protein, Total 7.9 g/dL (6.4-8.2); Sodium Level 137 mmol/L (136-145)
--- NOTE | 2018-11-19 21:03 | RAD REPORT ---
EXAM DESCRIPTION: CT - Abdomen Pelvis W Contrast - 11/19/2018 8:35 pm CLINICAL HISTORY: Abdominal pain/left lower quadrant pain COMPARISON: November 16, 2018 TECHNIQUE: Computed axial tomography of the abdomen and pelvis was obtained. 100 cc Isovue-300 is ad ministered intravenously. Oral contrast was given. All CT scans are performed using dose optimization technique as appropriate and may include automated exposure control or mA/KV adjustment according to patient size. FINDINGS: Fatty liver Spleen, pancreas, adrenals and left kidney appear unremarkable. . 1 millimeter nonobstructing right r enal calculi The appendix is normal caliber. There is no evidence of diverticulitis 27 millimeter right ovarian cyst diminished in size. No significant free fluid. Neurostimulator devic e in place IMPRESSION: No acute abnormality is displayed
--- NOTE | 2018-11-19 21:26 | ER ---
Nurse's Notes [facility] Name: Valentina Franco Age: 38 yrs Sex: Female : 1980 Arrival Date: 11/19/2018 Time: 16:48 Bed 7 Private MD: Diagnosis: Lower abdominal pain, unspecified Presentation: 11/19 16:58 Presenting complaint: Patient states: Lower abdominal and pelvic pain that has gotten aj worse since DX with UTI on Tuesday. Reports pain is worse as is urinary fraquency. Transition of care: patient was not received from another setting of care. Onset of symptoms was November 17, 2018. Risk Assessment: Do you want to hurt yourself or someone else? Patient reports no desire to harm self or others. Initial Sepsis Screen: Does the patient meet any 2 criteria? No. Patient's initial sepsis screen is negative. Does the patient have a suspected source of infection? No. Patient's initial sepsis screen is negative. Care prior to arrival: None. 16:58 Method Of Arrival: Ambulatory 16:58 Acuity: CYNTHIA 2 aj Triage Assessment: 17:00 General: Appears in no apparent distress. comfortable, Behavior is calm, cooperative, aj appropriate for age. Pain: Complains of pain in pelvis. Neuro: Level of Consciousness is awake, alert, obeys commands, Oriented to person, place, time, situation, Appropriate for age. Respiratory: Airway is patent Respiratory effort is even, unlabored, Respiratory pattern is regular, symmetrical. : Reports burning with urination, pain urgency, urinary frequency. Derm: Skin is intact, is healthy with good turgor, Skin is pink, warm \\T\\ dry. normal. 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 - Social history:: Smoking status: Patient/guardian denies using tobacco. - Ebola Screening: : Patient negative for fever greater than or equal to 101.5 degrees Fahrenheit, and additional compatible Ebola Virus Disease symptoms Patient denies exposure to infectious person Patient denies travel to an Ebola-affected area in the 21 days before illness onset No symptoms or risks identified at this time. Screenin:31 Abuse screen: Denies threats or abuse. Denies injuries from another. Nutritional bp screening: No deficits noted. Tuberculosis screening: No symptoms or risk factors identified. Fall Risk None identified. Assessment: 17:00 General: Appears distressed, uncomfortable, obese, Behavior is cooperative, appropriate bp for age, anxious. Pain: Complains of pain in pelvis. Neuro: No deficits noted. Cardiovascular: No deficits noted. Respiratory: No deficits noted. GI: Reports nausea. : Reports burning with urination, urinary frequency. EENT: No deficits noted. Derm: No deficits noted. Musculoskeletal: Circulation, motion, and sensation intact. Range of motion: intact in all extremities. 18:14 Reassessment: ALL CURRENT ORDERS COMPLETED, IVF INFUSING, RESULTS PENDING. bp 19:26 Reassessment: Patient appears in no apparent distress at this time. Patient and/or aa1 family updated on plan of care and expected duration. Pain level reassessed. Patient is alert, oriented x 3, equal unlabored respirations, skin warm/dry/pink. Awaiting CT scan. 20:28 Reassessment: Patient appears in no apparent distress at this time. Patient and/or aa1 family updated on plan of care and expected duration. Pain level reassessed. Patient is alert, oriented x 3, equal unlabored respirations, skin warm/dry/pink. Pt taken to CT at this time. 20:48 Reassessment: Patient appears in no apparent distress at this time. Patient is alert, aa1 oriented x 3, equal unlabored respirations, skin warm/dry/pink. Pt back from CT at this time. 21:40 Reassessment: Patient appears in no apparent distress at this time. Patient is alert, aa1 oriented x 3, equal unlabored respirations, skin warm/dry/pink. Discussed d/c \\T\\ f/u instructions with pt; denies questions or concerns at this time. Ambulatory to lobby with steady gait. Patient denies pain at this time. Patient states feeling better. Vital Signs: 17:00 BP 132 / 80; Pulse 130; Resp 20; Temp 98.9(O); Pulse Ox 97% on R/A; Weight 92.08 kg; aj Height 5 ft. 4 in. (162.56 cm); 17:32 BP 112 / 80; Pulse 120; Resp 16; Pulse Ox 98% ; bp 18:14 BP 125 / 103; Pulse 108; Resp 18; Pulse Ox 98% ; bp 19:26 BP 112 / 83; Pulse 86; Resp 18; Pulse Ox 100% on R/A; aa1 20:48 BP 119 / 71; Pulse 97; Resp 18; Pulse Ox 100% on R/A; aa1 21:40 BP 122 / 80; Pulse 97; Resp 16; Temp 98.7; Pulse Ox 98% on R/A; Pain 0/10; aa1 17:00 Body Mass Index 34.84 (92.08 kg, 162.56 cm) aj ED Course: 16:48 Patient arrived in ED. rg4 16:59 Triage completed. aj 17:00 Arm band placed on right wrist. Patient placed in an exam room. aj 17:02 Johan Randall PA is PHCP. cp 17:02 Johan Giron MD is Attending Physician. cp 17:02 Franky Smith, PETE is Primary Nurse. bp 17:21 Urine collected: clean catch specimen, cloudy, aneesh colored. jb1 17:30 Inserted saline lock: 20 gauge in right antecubital area, using aseptic technique. bp Blood collected. 17:31 Patient has correct armband on for positive identification. Bed in low position. Call bp light in reach. Side rails up X2. 20:34 CT completed. Patient tolerated procedure well. Patient moved back from CT. mw3 20:34 CT Abd/Pelvis - W/Contrast: give oral contrast In Process Unspecified. EDMS 21:40 No provider procedures requiring assistance completed. IV discontinued, intact, aa1 bleeding controlled, No redness/swelling at site. Pressure dressing applied. Administered Medications: 17:58 Drug: NS 0.9% 1000 ml Route: IV; Rate: 1 bolus; Site: right antecubital; mg2 19:00 Follow up: IV Status: Completed infusion; IV Intake: 1000ml aa1 17:58 Drug: Zofran 4 mg Route: IVP; Site: right antecubital; mg2 18:03 Follow up: Response: No adverse reaction bp 17:58 Drug: TORadol - Ketorolac 15 mg Route: IVP; Site: right antecubital; mg2 18:03 Follow up: Response: No adverse reaction bp 18:44 Drug: Zofran 4 mg Route: IVP; Site: right antecubital; mg2 19:44 Follow up: Response: No adverse reaction; Nausea is decreased aa1 Intake: 19:00 IV: 1000ml; Total: 1000ml. aa1 Outcome: 21:26 Discharge ordered by MD. cp 21:40 Discharged to home ambulatory. aa1 21:40 Condition: good 21:40 Discharge instructions given to patient, Instructed on discharge instructions, follow up and referral plans. medication usage, Demonstrated understanding of instructions, follow-up care, medications, Prescriptions given X 2. 21:41 Patient left the ED. aa1 Signatures: Dispatcher [employer] EDMS Walker Rodriguez jb1 Toshia Sy RN RN aa1 Ashley Browning RN RN aj Johan Randall PA PA Gem Valderrama rg4 Franky Smith RN RN bp Shashi Aragon RN RN mg2 Bety Noe mw3 Corrections: (The following items were deleted from the chart) 19:33 19:26 Reassessment: Patient appears in no apparent distress at this time. Patient aa1 and/or family updated on plan of care and expected duration. Pain level reassessed. Patient is alert, oriented x 3, equal unlabored respirations, skin warm/dry/pink. Awaiting provider reassessment aa1
--- NOTE | 2018-11-19 21:26 | EDPHYS ---
Physician Documentation [facility] Name: Valentina Franco Age: 38 yrs Sex: Female : 1980 Arrival Date: 11/19/2018 Time: 16:48 Bed 7 Private MD: ED Physician Johan Giron HPI: 11/19 17:05 This 38 yrs old Female presents to ER via Ambulatory with complaints of cp Urinary Problem. 17:05 The patient presents with abdominal pain in the lower abdomen. cp 17:05 Onset: The symptoms/episode began/occurred gradually, and became worse today. The cp symptoms radiate to left back. Associated signs and symptoms: Pertinent positives: dysuria, nausea. The patient has been recently seen at the [facility] Emergency [facility], for similar complaints CT scan was performed, was given a prescription for antibiotics, diagnosed with UTI and currently taking prescribed Bactrim. 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 - Social history:: Smoking status: Patient/guardian denies using tobacco. - Ebola Screening: : Patient negative for fever greater than or equal to 101.5 degrees Fahrenheit, and additional compatible Ebola Virus Disease symptoms Patient denies exposure to infectious person Patient denies travel to an Ebola-affected area in the 21 days before illness onset No symptoms or risks identified at this time. ROS: 17:10 Constitutional: Negative for body aches, chills, fever, poor PO intake. cp 17:10 Eyes: Negative for injury, pain, redness, and discharge. cp 17:10 Neck: Negative for pain with movement, pain at rest, stiffness. cp 17:10 Cardiovascular: Negative for chest pain, palpitations. 17:10 Respiratory: Negative for cough, shortness of breath, wheezing. 17:10 Abdomen/GI: Positive for abdominal pain, nausea, Negative for vomiting, diarrhea, constipation. 17:10 Back: Positive for radiated pain. 17:10 : Positive for urinary symptoms. 17:10 Neuro: Negative for altered mental status, headache, weakness. cp 17:10 All other systems are negative. Exam: 17:20 Constitutional: The patient appears in no acute distress, alert, awake, non-toxic, well cp developed, well nourished, uncomfortable. 17:20 Head/Face: Normocephalic, atraumatic. cp 17:20 Eyes: Periorbital structures: appear normal, Conjunctiva: normal, no exudate, no injection, Sclera: no appreciated abnormality, Lids and lashes: appear normal, bilaterally. 17:20 ENT: External ear(s): are unremarkable, Nose: is normal, Mouth: Lips: moist, Oral mucosa: pink and intact, moist, Posterior pharynx: is normal, airway is patent, no erythema, no exudate. 17:20 Chest/axilla: Inspection: normal, Palpation: is normal, no crepitus, no tenderness. 17:20 Cardiovascular: Rate: tachycardic, Rhythm: regular, Edema: is not appreciated, JVD: is not appreciated. 17:20 Respiratory: the patient does not display signs of respiratory distress, Respirations: normal, no use of accessory muscles, no retractions, no splinting, no tachypnea, labored breathing, is not present, Breath sounds: are clear throughout, no decreased breath sounds, no stridor, no wheezing. 17:20 Abdomen/GI: Inspection: abdomen appears normal, Bowel sounds: active, all quadrants, Palpation: soft, in all quadrants, moderate abdominal tenderness, in the suprapubic area and left lower quadrant, rebound tenderness, is not appreciated, voluntary guarding, is elicited in the suprapubic area and left lower quadrant. 17:20 Back: CVA tenderness, is absent. 17:20 Skin: no rash present. Vital Signs: 17:00 BP 132 / 80; Pulse 130; Resp 20; Temp 98.9(O); Pulse Ox 97% on R/A; Weight 92.08 kg; aj Height 5 ft. 4 in. (162.56 cm); 17:32 BP 112 / 80; Pulse 120; Resp 16; Pulse Ox 98% ; bp 18:14 BP 125 / 103; Pulse 108; Resp 18; Pulse Ox 98% ; bp 19:26 BP 112 / 83; Pulse 86; Resp 18; Pulse Ox 100% on R/A; aa1 20:48 BP 119 / 71; Pulse 97; Resp 18; Pulse Ox 100% on R/A; aa1 21:40 BP 122 / 80; Pulse 97; Resp 16; Temp 98.7; Pulse Ox 98% on R/A; Pain 0/10; aa1 17:00 Body Mass Index 34.84 (92.08 kg, 162.56 cm) aj MDM: 17:02 Patient medically screened. 21:25 Data reviewed: vital signs, nurses notes, lab test result(s), radiologic studies, CT cp scan, I have discussed the patient's presentation/case with the attending Emergency Department Physician; and as a result, I will discharge patient. 21:25 Differential diagnosis: bowel obstruction, diverticulitis, Pyelonephritis, cp Ureterolithiasis, urinary tract infection. Counseling: I had a detailed discussion with the patient and/or guardian regarding: the historical points, exam findings, and any diagnostic results supporting the discharge/admit diagnosis, lab results, radiology results, to return to the emergency department if symptoms worsen or persist or if there are any questions or concerns that arise at home. Response to treatment: the patient's symptoms have markedly improved after treatment, and as a result, I will discharge patient. 05 16:55 Order name: Urine Culture [facility] 11/19 16:55 Order name: Urine Microscopic Only; Complete Time: 18:21 [facility] 11/19 21:12 Interpretation: Normal except: UBACT >50; SQEPI 10-20; AMORPH 2+. 11/19 17:12 Order name: Basic Metabolic Panel; Complete Time: 19:05 11/19 19:06 Interpretation: Normal except: GLUC 261; GFR 71. 11/19 17:12 Order name: CBC with Diff; Complete Time: 18:21 11/19 19:06 Interpretation: Reviewed. 11/19 17:12 Order name: Creatinine for Radiology; Complete Time: 18:21 11/19 17:12 Order name: Hepatic Function; Complete Time: 19:05 11/19 19:06 Interpretation: Normal except: AST 56; ALT 94; GLOB 4.2; A/G 0.9. 11/19 17:12 Order name: Lipase; Complete Time: 19:05 cp 11/19 17:20 Order name: Lactate; Complete Time: 19:05 cp 11/19 17:20 Order name: Urine Dipstick--Ancillary (enter results); Complete Time: 18:21 em1 11/19 18:22 Interpretation: Normal except: UGLUC 2+; UPROT 3+. / 17:20 Order name: Urine --Ancillary (enter results); Complete Time: 18:21 em1 11/19 18:27 Order name: CT Abd/Pelvis - W/Contrast: give oral contrast; Complete Time: 21:11 cp 11/19 21:12 Interpretation: Report reviewed. 11/19 16:55 Order name: Urine Test (obtain specimen); Complete Time: 17:18 snw 11/19 16:55 Order name: Urine Dipstick-Ancillary (obtain specimen); Complete Time: 17:18 [facility] 11/19 17:12 Order name: IV Saline Lock; Complete Time: 17:58 11/19 17:12 Order name: Labs collected and sent; Complete Time: 17:58 11/19 17:14 Order name: Accucheck Blood Glucose; Complete Time: 18:02 cp Administered Medications: 17:58 Drug: NS 0.9% 1000 ml Route: IV; Rate: 1 bolus; Site: right antecubital; mg2 19:00 Follow up: IV Status: Completed infusion; IV Intake: 1000ml aa1 17:58 Drug: Zofran 4 mg Route: IVP; Site: right antecubital; mg2 18:03 Follow up: Response: No adverse reaction bp 17:58 Drug: TORadol - Ketorolac 15 mg Route: IVP; Site: right antecubital; mg2 18:03 Follow up: Response: No adverse reaction bp 18:44 Drug: Zofran 4 mg Route: IVP; Site: right antecubital; mg2 19:44 Follow up: Response: No adverse reaction; Nausea is decreased aa1 Disposition: 11/20 09:23 Co-signature as Attending Physician, Johan MEI I agree with the assessment and young plan of care. Disposition: 11/19/18 21:26 Discharged to Home. Impression: Lower abdominal pain, unspecified. - Condition is Stable. - Discharge Instructions: Abdominal Pain, Adult. - Prescriptions for Bentyl 20 mg Oral Tablet - take 1 tablet by ORAL route every 6 hours As needed; 20 tablet. Zofran 4 mg Oral Tablet - take 1 tablet by ORAL route every 12 hours As needed; 20 tablet. - Work release form, Medication Reconciliation Form, Thank You Letter, Antibiotic Education, Prescription Opioid Use form. - Follow up: Private Physician; When: 1 week; Reason: Recheck today's complaints. - Problem is an ongoing problem. - Symptoms have improved. Signatures: Dispatcher [employer] EDToshia Thomas RN RN aa1 Ashley Browning RN Johan Huff MD MD cha Therrien, Shelly, FIRER GLOST KILN-C FIRER GLOST KILN-Csnw Johan Randall PA PA cp Gardose, Michele, RN RN Franky Kinney RN bp Corrections: (The following items were deleted from the chart) 11/19 21:41 21:26 11/19/2018 21:26 Discharged to Home. Impression: Lower abdominal pain, aa1 unspecified. Condition is Stable. Forms are Medication Reconciliation Form, Thank You Letter, Antibiotic Education, Prescription Opioid Use. Follow up: Private Physician; When: 1 week; Reason: Recheck today's complaints. Problem is an ongoing problem. Symptoms have improved. cp
[2018-11-19 23:28] VITALS: BP 122/80; TEMP 98.7; O2SAT 98
== END 2018-11-19 21:41 | disposition home or self-care (01) ==
LOC: ER 16:45
DX: R10.30 Lower abdominal pain, unspecified (principal); R30.0 Dysuria; F41.9 Anxiety disorder, unspecified; F32.9 Major depressive disorder, single episode, unspecified; E11.9 Type 2 diabetes mellitus without complications; E78.00 Pure hypercholesterolemia, unspecified
CPT/HCPCS: 36415; 74177; 80048; 80076; 81003; 81015; 81025; 83605; 83690; 85025; 87086; 87088; 96361; 96374; 96375; 99284; J2405; J7030; Q9967

== ENCOUNTER 2019-05-12 09:30 | Emergency (ER) | payer OTHER ==
--- NOTE | 2019-05-12 10:43 | ER ---
Nurse's Notes [facility] Name: Valentina Franco Age: 39 yrs Sex: Female : 1980 Arrival Date: 05/12/2019 Time: 09:32 Bed 16 Private MD: Diagnosis: Other specified sprain of left wrist Presentation: 05/12 09:34 Presenting complaint: Patient states: On 0 on Tuesday she was trying to get out of rb1 bed when her wrist bent the wrong way and now she can't move it. Transition of care: patient was not received from another setting of care. Onset of symptoms was May 10, 2019. Risk Assessment: Do you want to hurt yourself or someone else? Patient reports no desire to harm self or others. Initial Sepsis Screen: Does the patient meet any 2 criteria? No. Patient's initial sepsis screen is negative. Does the patient have a suspected source of infection? No. Patient's initial sepsis screen is negative. Care prior to arrival: None. 09:34 Method Of Arrival: Ambulatory [facility] 09:34 Acuity: CYNTHIA 3 rb1 Triage Assessment: 09:34 General: Appears uncomfortable, Behavior is calm, cooperative. Pain: Complains of pain rb1 in left wrist Pain currently is 9 out of 10 on a pain scale. Pain began x 2 days. Neuro: Level of Consciousness is awake, alert, obeys commands, Oriented to person, place, time, situation, Reports numbness in left hand. Cardiovascular: Capillary refill < 3 seconds is brisk in bilateral fingers. Cardiovascular: Pulses are palpable in right radial artery and left radial artery. Respiratory: Airway is patent Respiratory effort is even, unlabored, Respiratory pattern is regular, symmetrical. GI: No signs and/or symptoms were reported involving the gastrointestinal system. : No signs and/or symptoms were reported regarding the genitourinary system. Derm: Skin is pink, warm \\T\\ dry. Musculoskeletal: Range of motion: limited in left wrist. 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 - Social history:: Smoking status: Patient/guardian denies using tobacco. - Family history:: not pertinent. - Ebola Screening: : Patient negative for fever greater than or equal to 101.5 degrees Fahrenheit, and additional compatible Ebola Virus Disease symptoms. - Hospitalizations: : No recent hospitalization is reported. Screenin:34 Abuse screen: Denies threats or abuse. Nutritional screening: No deficits noted. rb1 Tuberculosis screening: No symptoms or risk factors identified. Fall Risk None identified. Assessment: 09:34 General: See triage assessment. rb1 10:30 Reassessment: Patient appears in no apparent distress at this time. No changes from rb1 previously documented assessment. Vital Signs: 09:34 BP 121 / 95; Pulse 93; Resp 17; Temp 98.5(O); Pulse Ox 96% on R/A; Weight 92.08 kg (R); rb1 Height 5 ft. 4 in. (162.56 cm) (R); Pain 9/10; 10:30 BP 121 / 83; Pulse 90; Resp 19; Pulse Ox 99% on R/A; rb1 09:34 Body Mass Index 34.84 (92.08 kg, 162.56 cm) rb1 ED Course: 09:32 Patient arrived in ED. as 09:34 Lisa Bolivar, RN is Primary Nurse. rb1 09:34 Arm band placed on right wrist. rb1 09:34 Patient has correct armband on for positive identification. Bed in low position. Call rb1 light in reach. Side rails up X 1. Pulse ox on. NIBP on. 09:36 Tiburcio Linder MD is Attending Physician. rn 09:43 Triage completed. rb1 10:04 XRAY Wrist LEFT 3 view In Process Unspecified. EDMS 10:41 Rafy Gomez MD is Referral Physician. rn 11:00 No provider procedures requiring assistance completed. Patient did not have IV access rb1 during this emergency room visit. Administered Medications: 10:46 Drug: [place] 5 mg-325 mg 1 tabs Route: PO; rb1 10:59 Follow up: Response: No adverse reaction rb1 10:46 Drug: Motrin 800 mg Route: PO; rb1 11:00 Follow up: Response: No adverse reaction rb1 Outcome: 10:42 Discharge ordered by . rn 11:00 Discharged to home ambulatory, with family. rb1 11:00 Condition: stable 11:00 Discharge instructions given to patient, Instructed on discharge instructions, follow up and referral plans. Demonstrated understanding of instructions, follow-up care, Prescriptions given X none 11:01 Patient left the ED. rb1 Signatures: Dispatcher [employer] Ledy Cardenas Roman, MD MD rn Barber, Rebecca, RN RN rb1
--- NOTE | 2019-05-12 10:43 | EDPHYS ---
Physician Documentation [facility] Name: Valentina Franco Age: 39 yrs Sex: Female : 1980 Arrival Date: 05/12/2019 Time: 09:32 Bed 16 Private MD: ED Physician Tiburcio Linder HPI: 05/12 09:40 This 39 yrs old Female presents to ER via Unassigned with complaints of Wrist rn Pain. 09:40 The patient or guardian reports decreased range of motion, injury, pain. The complaints rn affect the left wrist diffusely. Onset: The symptoms/episode began/occurred 2 day(s) ago. Modifying factors: The symptoms are alleviated by holding still, the symptoms are aggravated by movement, dependent position. Associated signs and symptoms: Pertinent negatives: cyanosis distally, decreased sensation distally, fever, numbness distally, tingling distally, vomiting. The patient has not experienced similar symptoms in the past. Reports 2 days ago, using left wrist to get up from bed, states hand with extreme dorsiflexion, heard pop, reports painful ROM. States does not feel as painful as when she broke a bone. 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 - Social history:: Smoking status: Patient/guardian denies using tobacco. - Family history:: not pertinent. - Ebola Screening: : Patient negative for fever greater than or equal to 101.5 degrees Fahrenheit, and additional compatible Ebola Virus Disease symptoms. - Hospitalizations: : No recent hospitalization is reported. ROS: 09:40 MS/Extremity: + injury and pain to left wrist Neuro: Negative for weakness, numbness, rn tingling Exam: 09:44 Hand exam: is negative for abrasion, laceration, perfusion abnormalities, snuff rn box/scaphoid tenderness, Exam is positive for decreased range of motion, pain. 09:44 Constitutional: This is a well developed, well nourished patient who is awake, alert, and in no acute distress. Skin: Warm, dry, no open wounds MS/ Extremity: Pulses equal, no cyanosis. Neurovascular intact, painful ROM left wrist without bony tenderness, tenderness over dorsum left wrist over proximal 3rd/4th MC Vital Signs: 09:34 BP 121 / 95; Pulse 93; Resp 17; Temp 98.5(O); Pulse Ox 96% on R/A; Weight 92.08 kg (R); rb1 Height 5 ft. 4 in. (162.56 cm) (R); Pain 9/10; 10:30 BP 121 / 83; Pulse 90; Resp 19; Pulse Ox 99% on R/A; rb1 09:34 Body Mass Index 34.84 (92.08 kg, 162.56 cm) rb1 MDM: 09:37 Patient medically screened. rn 10:37 Differential diagnosis: dislocation, closed fracture, sprain. Data reviewed: vital rn signs, nurses notes, radiologic studies, plain films, and as a result, I will discharge patient. Test interpretation: by ED physician or midlevel provider: plain radiologic studies, Xray left wrist with questionable deformity proximal 2nd MC. Counseling: I had a detailed discussion with the patient and/or guardian regarding: the historical points, exam findings, and any diagnostic results supporting the discharge/admit diagnosis, radiology results, the need for outpatient follow up, to return to the emergency department if symptoms worsen or persist or if there are any questions or concerns that arise at home. Response to treatment: the patient's symptoms have mildly improved after treatment, and as a result, I will discharge patient. Special discussion: Based on the history and exam findings, there is no indication for further emergent testing or inpatient evaluation. I discussed with the patient/guardian the need to see the hand specialist for further evaluation of the symptoms. ED course: Questionable 2nd MC fracture/avulsion, will place in splint, given radiology does not read xrays on weekend. Explained to patient. Recommend repeat outpt xrays and hand/ortho f/u. . 05/12 09:40 Order name: XRAY Wrist LEFT 3 view rn 05/12 10:42 Order name: Wrist Splint; Complete Time: 10:57 rn Administered Medications: 10:46 Drug: Starrucca 5 mg-325 mg 1 tabs Route: PO; rb1 10:59 Follow up: Response: No adverse reaction rb1 10:46 Drug: Motrin 800 mg Route: PO; rb1 11:00 Follow up: Response: No adverse reaction rb1 Disposition: 05/12/19 10:42 Discharged to Home. Impression: Other specified sprain of left wrist. - Condition is Stable. - Discharge Instructions: Wrist Splint, Wrist Sprain. - Medication Reconciliation Form, Thank You Letter, Antibiotic Education, Prescription Opioid Use form. - Follow up: Rafy Gomez MD; When: As needed; Reason: Recheck today's complaints, Re-evaluation by your physician. - Problem is new. - Symptoms are unchanged. Signatures: Dispatcher [employer] EDMS Tiburcio Linder MD MD rn Barber, Rebecca, RN RN rb1 Corrections: (The following items were deleted from the chart) 09:44 09:40 MS/Extremity: + injury and pain to left wrist Neuro: Negative for weakness, rn numbness, tingling rn 09:45 09:44 Constitutional: This is a well developed, well nourished patient who is awake, rn alert, and in no acute distress. Skin: Warm, dry, no open wounds MS/ Extremity: Pulses equal, no cyanosis. Neurovascular intact, painful ROM left wrist without bony tenderness, tenderness over dorsum left wrist over proximal 3rd/4th MC rn 11:01 10:42 05/12/2019 10:42 Discharged to Home. Impression: Other specified sprain of left rb1 wrist. Condition is Stable. Forms are Medication Reconciliation Form, Thank You Letter, Antibiotic Education, Prescription Opioid Use. Follow up: Rafy Gomez; When: As needed; Reason: Recheck today's complaints, Re-evaluation by your physician. Problem is new. Symptoms are unchanged. rn
[2019-05-12] MEDS ORDERED: HYDROCODONE/APAP 5/325 MG TAB ONE (10:44)
[2019-05-12] MEDS ORDERED: IBUPROFEN 400 MG TAB ONE (10:45)
[2019-05-12 11:41] VITALS: TEMP 98.5
[2019-05-12 11:42] VITALS: BP 121/83; O2SAT 99
--- NOTE | 2019-05-12 12:19 | RAD REPORT ---
EXAM DESCRIPTION: RAD - Wrist Left 3 View - 05/12/2019 10:01 am CLINICAL HISTORY: Left wrist pain status post injury FINDINGS: No fracture or dislocation is seen. If the patient continues to have symptoms to suggest an occult fracture then a followup plain film se audie in 7 days would be recommended
== END 2019-05-12 11:01 | disposition home or self-care (01) ==
LOC: ER 09:30
DX: S63.592A Other specified sprain of left wrist, initial encounter (principal); X50.1XXA Overexertion from prolonged static or awkward postures, initial encounter; Y93.89 Activity, other specified; Y92.013 Bedroom of single-family (private) house as the place of occurrence of the external cause; E11.9 Type 2 diabetes mellitus without complications; E78.00 Pure hypercholesterolemia, unspecified; F41.8 Other specified anxiety disorders
CPT/HCPCS: 99284

== ENCOUNTER 2019-08-04 11:05 | Emergency (ER) | payer OTHER ==
--- OUTSIDE RECORDS SUMMARY | 2019-08-04 11:09 | XMS REPORT ---
:1980 [facility] Address [address] [place] [address] [address] [place] [address] Care Team Providers Name Role Phone Unavailable Unavailable Unavailable Problems This patient has no known problems. Allergies, Adverse Reactions, Alerts This patient has no known allergies or adverse reactions. Medications This patient has no known medications.
[2019-08-04 12:33] LABS: Absolute Lymphocytes (CBC) 2.2 K/uL (0.7-4.9); Basophils % 0.8 % (0-1.3); Hematocrit 37.4 % (36.0-45.0); Lymphocytes % 38.1 % (15.3-44.8); MPV 7.9 fL (7.6-11.3); RBC Red Blood Cell Count 4.37 M/uL (3.86-4.86)
[2019-08-04] MEDS ORDERED: KETOROLAC 30 MG/ML INJ ONE (12:37)
[2019-08-04 12:43] LABS: Potassium 4.1 mmol/L (3.5-5.1)
[2019-08-04 12:48] LABS: Urine Bacteria >50 /HPF (<20); Urine Culture Reflex Order REFLEXED; Urine Mucus 2+ /HPF (NONE SEEN); Urine RBC <5 /HPF (NONE SEEN)
[2019-08-04 13:00] LABS: Urine Blood TRACE (NEG); Urine Glucose 2+ (NEG); Urine Protein 3+ (NEG)
[2019-08-04] MEDS ORDERED: INSULIN -REGULAR HUMAN 50 UNIT/0.5 ML ML ONE (13:04)
[2019-08-04] MEDS ORDERED: CEFTRIAXONE/SWI 1gm 1 GM/10 ML SYR ONE (13:04)
[2019-08-04] MEDS ORDERED: NA CHLORIDE 0.9% 1,000 ML ONE (13:04)
--- NOTE | 2019-08-04 13:31 | RAD REPORT ---
EXAM DESCRIPTION: CTAbdomen Pelvis W Contrast - 08/04/2019 1:20 pm CLINICAL HISTORY: Abdominal pain. FLANK PAIN COMPARISON: Abdomen Pelvis W Contrast dated 11/19/2018; Abdomen Pelvis W Contrast dated 11/16/2018; Abdomen Pelvis W Contrast dated 11/09/2017; Abdomen Pelvis W Contrast dated 09/15/2017 TECHNIQUE: Biphasic CT imaging of the abdomen and pelvis was performed with 100 ml non-ionic IV cont rast. All CT scans are performed using dose optimization technique as appropriate and may include automated exposure control or mA/KV adjustment according to patient size. FINDINGS: The lung bases are clear.Cholecystectomy clips. Mild diffuse fatty liver. No aggressive lytic liver lesion or biliary dilatation. The spleen, pancrea s, adrenal glands and kidneys are within normal limits. No bowel obstruction, free air, free fluid or abscess. The appendix is normal. No evidence of signi ficant lymphadenopathy. 36 mm right ovarian cyst. No suspicious bony findings. 11 mm right-sided Bartholin's gland cyst. IMPRESSION: Diffuse fatty liver. Cholecystectomy clips. 36 mm right ovarian cyst. 11 mm right-sided Bartholin's gland cyst.
--- NOTE | 2019-08-04 13:53 | ER ---
Nurse's Notes [facility] Name: Valentina Franco Age: 39 yrs Sex: Female : 1980 Arrival Date: 08/04/2019 Time: 11:09 Bed 28 Private MD: Diagnosis: Urinary tract infection, site not specified;Other ovarian cysts;Cyst of Bartholin's gland;Hyperglycemia, unspecified Presentation: 08/04 11:19 Presenting complaint: Patient states: "All week long I've been in and out of the doctor aj1 because I have a lot of pain in my privates, one doctor said it was a yeast infection and the next one said it was just dry, I can't even walk because of the pain. They called in a cream and its not working, they called me in a yeast infection and its not helping. I had BV this summer and and it feels like when I had that". Transition of care: patient was not received from another setting of care. Onset of symptoms was July 2019. Risk Assessment: Do you want to hurt yourself or someone else? Patient reports no desire to harm self or others. Initial Sepsis Screen: Does the patient meet any 2 criteria? No. Patient's initial sepsis screen is negative. Does the patient have a suspected source of infection? No. Patient's initial sepsis screen is negative. Care prior to arrival: None. 11:19 Method Of Arrival: Ambulatory aj1 11:19 Acuity: CYNTHIA 3 aj1 Triage Assessment: 11:22 General: Appears in no apparent distress. uncomfortable, Behavior is calm, cooperative, aj1 appropriate for age. Pain: Complains of pain in pelvis. EENT: No signs and/or symptoms were reported regarding the EENT system. Neuro: Level of Consciousness is awake, alert, obeys commands, Oriented to person, place, time, situation. Cardiovascular: Patient's skin is warm and dry. Respiratory: Airway is patent Respiratory effort is even, unlabored, Respiratory pattern is regular, symmetrical. GI: No signs and/or symptoms were reported involving the gastrointestinal system. : Reports burning with urination, Denies discharge. Derm: No signs and/or symptoms reported regarding the dermatologic system. Skin is pink, warm \\T\\ dry. normal. Musculoskeletal: No signs and/or symptoms reported regarding the musculoskeletal system. Circulation, motion, and sensation intact. 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 - Coronavirus screen:: The patient has NOT traveled to [place], [place], or [place] in the past 14 days. - Social history:: Smoking status: Patient/guardian denies using tobacco. - Ebola Screening: : Patient denies travel to an Ebola-affected area in the 21 days before illness onset. Screenin:24 Abuse screen: Denies threats or abuse. Denies injuries from another. Nutritional aj1 screening: No deficits noted. Tuberculosis screening: No symptoms or risk factors identified. 12:22 Fall Risk None identified. aj1 Assessment: 11:24 Reassessment: see triage assessment. aj1 12:22 Reassessment: Patient appears in no apparent distress at this time. No changes from aj1 previously documented assessment. Patient and/or family updated on plan of care and expected duration. Pain level reassessed. Patient is alert, oriented x 3, equal unlabored respirations, skin warm/dry/pink. 13:37 Reassessment: Patient appears in no apparent distress at this time. No changes from aj1 previously documented assessment. Patient and/or family updated on plan of care and expected duration. Pain level reassessed. Patient is alert, oriented x 3, equal unlabored respirations, skin warm/dry/pink. 14:13 Reassessment: Patient appears in no apparent distress at this time. No changes from aj1 previously documented assessment. Patient and/or family updated on plan of care and expected duration. Pain level reassessed. Patient is alert, oriented x 3, equal unlabored respirations, skin warm/dry/pink. Vital Signs: 11:22 BP 136 / 93; Pulse 116; Resp 20; Temp 97.1; Pulse Ox 97% on R/A; Weight 97.07 kg (R); aj1 Height 5 ft. 4 in. (162.56 cm) (R); Pain 10/10; 12:36 BP 124 / 69; Pulse 107; Resp 20; Pulse Ox 98% on R/A; aj1 13:37 BP 118 / 88; Pulse 102; Resp 20; Pulse Ox 99% on R/A; aj1 11:22 Body Mass Index 36.73 (97.07 kg, 162.56 cm) aj1 ED Course: 11:09 Patient arrived in ED. ag5 11:21 Triage completed. aj1 11:22 Milady Turpin FNP-C is PHCP. kb 11:22 Doron Mueller MD is Attending Physician. kb 11:22 Arm band placed on Patient placed in an exam room. aj1 11:24 Reshma Mayberry, RN is Primary Nurse. aj1 11:24 Patient has correct armband on for positive identification. Bed in low position. Call [facility] light in reach. 11:24 No provider procedures requiring assistance completed. aj1 12:16 Initial lab(s) drawn, by me, sent to lab. Inserted saline lock: 20 gauge in left aj antecubital area, using aseptic technique. Blood collected. 13:21 CT Abd/Pelvis - IV Contrast Only In Process Unspecified. EDMS 14:13 IV discontinued, intact, bleeding controlled, No redness/swelling at site. Pressure aj1 dressing applied. Administered Medications: 12:37 Drug: TORadol - Ketorolac 15 mg Route: IVP; Site: left antecubital; aj1 13:07 Drug: Rocephin 1 grams Route: IV; Rate: calculated rate; Site: left antecubital; aj1 13:07 Drug: NS 0.9% 1000 ml Route: IV; Rate: 1000 ml; Site: left antecubital; aj1 13:09 Drug: Insulin Regular Human 10 units {Co-Signature: aj1 (Reshma Mayberry RN).} Route: ss IVP; Site: left antecubital; Outcome: 13:52 Discharge ordered by MD. kb 14:13 Discharged to home ambulatory. aj1 14:13 Condition: good 14:13 Discharge instructions given to patient, Instructed on discharge instructions, follow up and referral plans. medication usage, Demonstrated understanding of instructions, follow-up care, medications, Prescriptions given X 1. 14:14 Patient left the ED. aj1 Signatures: Dispatcher [employer] EDMS Milady Turpin, TEXTILE DESIGNER-C TEXTILE DESIGNER-Reshma Diez RN RN aj1 Elvie Henderson RN RN Alyx Henry 5 Reshma Mayberry RN aj1 Corrections: (The following items were deleted from the chart) 11:24 11:19 Acuity: CYNTHIA 4 aj1 aj1
--- NOTE | 2019-08-04 13:54 | EDPHYS ---
Physician Documentation [facility] Name: Valentina Franco Age: 39 yrs Sex: Female : 1980 Arrival Date: 08/04/2019 Time: 11:09 Bed 28 Private MD: ED Physician Doron Mueller HPI: 08/04 13:21 This 39 yrs old Female presents to ER via Ambulatory with complaints of kb vaginal pain, dysuria. 13:21 The patient presents with urinary symptoms, dysuria, vaginal pain. Onset: The kb symptoms/episode began/occurred 1 month(s) ago. Modifying factors: The symptoms are alleviated by nothing, the symptoms are aggravated by walking, urinating. Associated signs and symptoms: Pertinent positives: dysuria, fever. Severity of symptoms: At their worst the symptoms were moderate, in the emergency department the symptoms are unchanged. The patient has not experienced similar symptoms in the past. The patient has been recently seen by a physician:. Pt reports she has had suprapubic pain, pain with urination and vaginal pain since July 07, 2019. States she went to [facility] when it started and was diagnosed with UTI. Followed up with her PCP last week and was told she had yeast so was treated with diflucan, but symptoms did not get better. Followed up with TWISTER FRAME TENDER and given flagyl for BV, but symptoms still not resolved. . 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 - Coronavirus screen:: The patient has NOT traveled to [place], [place], or [place] in the past 14 days. - Social history:: Smoking status: Patient/guardian denies using tobacco. - Ebola Screening: : Patient denies travel to an Ebola-affected area in the 21 days before illness onset. ROS: 13:18 ENT: Negative for injury, pain, and discharge, Neck: Negative for injury, pain, and kb swelling, Cardiovascular: Negative for chest pain, palpitations, and edema, Respiratory: Negative for shortness of breath, cough, wheezing, and pleuritic chest pain, Abdomen/GI: Negative for abdominal pain, nausea, vomiting, diarrhea, and constipation, MS/Extremity: Negative for injury and deformity, Skin: Negative for injury, rash, and discoloration, Neuro: Negative for headache, weakness, numbness, tingling, and seizure. 13:18 Constitutional: Positive for fatigue, fever, malaise. 13:18 : Positive for urinary symptoms, burning with urination, vaginal pain. Exam: 13:19 Constitutional: This is a well developed, well nourished patient who is awake, alert, kb and in no acute distress. Head/Face: Normocephalic, atraumatic. Neck: Trachea midline, no thyromegaly or masses palpated, and no cervical lymphadenopathy. Supple, full range of motion without nuchal rigidity, or vertebral point tenderness. No Meningismus. Chest/axilla: Normal chest wall appearance and motion. Nontender with no deformity. No lesions are appreciated. Cardiovascular: Regular rate and rhythm with a normal S1 and S2. No gallops, murmurs, or rubs. Normal PMI, no JVD. No pulse deficits. Respiratory: Lungs have equal breath sounds bilaterally, clear to auscultation and percussion. No rales, rhonchi or wheezes noted. No increased work of breathing, no retractions or nasal flaring. Skin: Warm, dry with normal turgor. Normal color with no rashes, no lesions, and no evidence of cellulitis. MS/ Extremity: Pulses equal, no cyanosis. Neurovascular intact. Full, normal range of motion. Neuro: Awake and alert, GCS 15, oriented to person, place, time, and situation. Cranial nerves II-XII grossly intact. Motor strength 5/5 in all extremities. Sensory grossly intact. Cerebellar exam normal. Normal gait. 13:19 Abdomen/GI: Inspection: abdomen appears normal, Bowel sounds: normal, in all quadrants, Palpation: soft, in all quadrants, moderate abdominal tenderness, in the suprapubic area. 13:19 Back: pain, that is mild, that is moderate, of the left flank, CVA tenderness, that is mild, that is moderate, is noted on the left. 13:19 : Pelvic Exam: External exam: is normal. Vital Signs: 11:22 BP 136 / 93; Pulse 116; Resp 20; Temp 97.1; Pulse Ox 97% on R/A; Weight 97.07 kg (R); aj1 Height 5 ft. 4 in. (162.56 cm) (R); Pain 10/10; 12:36 BP 124 / 69; Pulse 107; Resp 20; Pulse Ox 98% on R/A; aj1 13:37 BP 118 / 88; Pulse 102; Resp 20; Pulse Ox 99% on R/A; aj1 11:22 Body Mass Index 36.73 (97.07 kg, 162.56 cm) aj1 MDM: 11:24 Patient medically screened. kb 13:19 Data reviewed: vital signs, nurses notes. Data interpreted: Pulse oximetry: on room air kb is 98 %. Interpretation: normal. 13:46 Counseling: I had a detailed discussion with the patient and/or guardian regarding: the kb historical points, exam findings, and any diagnostic results supporting the discharge/admit diagnosis, lab results, radiology results, the need for outpatient follow up, an OB/Gyne specialist, to return to the emergency department if symptoms worsen or persist or if there are any questions or concerns that arise at home. ED course: Pt has been on Macrobid, bactrim and flagyl since the end of June. Will prescribe Vantin and send urine for culture. ED course: No bartholin's cyst noted on exam. Reexamined after getting CT report, but still unable to palpate or visualize cyst. Will send pt home with CT report to take to [facility] for follow up. 08/04 11:23 Order name: Wet Prep; Complete Time: 12:34 kb 08/04 11:57 Order name: Urine Microscopic Only; Complete Time: 12:49 kb 08/04 11:57 Order name: CBC with Diff; Complete Time: 12:34 kb 08/04 11:57 Order name: Basic Metabolic Panel; Complete Time: 12:54 kb 08/04 12:37 Order name: Urine Dipstick--Ancillary (enter results); Complete Time: 13:04 eb 08/04 12:37 Order name: Urine --Ancillary (enter results); Complete Time: 13:04 eb 08/04 11:24 Order name: Urine Dipstick-Ancillary (obtain specimen); Complete Time: 12:20 kb 08/04 11:57 Order name: CT Abd/Pelvis - IV Contrast Only; Complete Time: 13:39 kb 08/04 12:57 Order name: Urine Culture [facility] 08/04 13:46 Order name: Glucose, Ancillary Testing; Complete Time: 13:52 [facility] 08/04 11:57 Order name: IV Start; Complete Time: 12:20 kb Administered Medications: 12:37 Drug: TORadol - Ketorolac 15 mg Route: IVP; Site: left antecubital; aj1 13:07 Drug: Rocephin 1 grams Route: IV; Rate: calculated rate; Site: left antecubital; aj 13:07 Drug: NS 0.9% 1000 ml Route: IV; Rate: 1000 ml; Site: left antecubital; aj1 13:09 Drug: Insulin Regular Human 10 units {Co-Signature: justo1 (Reshma Mayberry RN).} Route: ss IVP; Site: left antecubital; Disposition: 17:05 Co-signature as Attending Physician, Doron Mueller MD I agree with the assessment and kdr plan of care. Disposition: 08/04/19 13:52 Discharged to Home. Impression: Urinary tract infection, site not specified, Other ovarian cysts, Cyst of Bartholin's gland, Hyperglycemia, unspecified. - Condition is Stable. - Discharge Instructions: Bartholin Cyst or Abscess, Urinary Tract Infection, Adult, [id number], Ovarian Cyst, [id number], Hyperglycemia, [id number]. - Prescriptions for cefpodoxime 100 mg Oral Tablet - take 2 tablet by ORAL route every 12 hours for 10 days take with food; 40 tablet. - Medication Reconciliation Form, Thank You Letter, Antibiotic Education, Prescription Opioid Use form. - Follow up: Emergency Department; When: As needed; Reason: Worsening of condition. Follow up: Private Physician; When: 2 - 3 days; Reason: Recheck today's complaints, Continuance of care, Re-evaluation by your physician. Signatures: Dispatcher [employer] [facility] Milady Turpin, WASTE MACHINE OPERATOR-C CAS-Reshma Diez RN RN aj1 Dorno Mueller MD MD [facility] Elvie Henderson RN RN ss Reshma Jefe RN aj1 Corrections: (The following items were deleted from the chart) 13:19 13:18 Neck: Negative for injury, pain, and swelling, Cardiovascular: Negative for chest kb pain, palpitations, and edema, Respiratory: Negative for shortness of breath, cough, wheezing, and pleuritic chest pain, Abdomen/GI: Negative for abdominal pain, nausea, vomiting, diarrhea, and constipation, MS/Extremity: Negative for injury and deformity, Skin: Negative for injury, rash, and discoloration, Neuro: Negative for headache, weakness, numbness, tingling, and seizure, kb 13:53 13:52 08/04/2019 13:52 Discharged to Home. Impression: Urinary tract infection, site kb not specified; Other ovarian cysts; Cyst of Bartholin's gland. Condition is Stable. Forms are Medication Reconciliation Form, Thank You Letter, Antibiotic Education, Prescription Opioid Use. Follow up: Emergency Department; When: As needed; Reason: Worsening of condition. Follow up: Private Physician; When: 2 - 3 days; Reason: Recheck today's complaints, Continuance of care, Re-evaluation by your physician. kb 14:14 13:53 08/04/2019 13:52 Discharged to Home. Impression: Urinary tract infection, site aj1 not specified; Other ovarian cysts; Cyst of Bartholin's gland; Hyperglycemia, unspecified. Condition is Stable. Forms are Medication Reconciliation Form, Thank You Letter, Antibiotic Education, Prescription Opioid Use. Follow up: Emergency Department; When: As needed; Reason: Worsening of condition. Follow up: Private Physician; When: 2 - 3 days; Reason: Recheck today's complaints, Continuance of care, Re-evaluation by your physician. kb
[2019-08-04 14:29] VITALS: TEMP 97.1
[2019-08-04 14:32] VITALS: BP 118/88; O2SAT 99
== END 2019-08-04 14:14 | disposition home or self-care (01) ==
LOC: ER 11:05
DX: N39.0 Urinary tract infection, site not specified (principal); N75.0 Cyst of Bartholin's gland; N83.299 Other ovarian cyst, unspecified side; E11.65 Type 2 diabetes mellitus with hyperglycemia; Z79.4 Long term (current) use of insulin
CPT/HCPCS: 87088; 85025; 87086; 80048; 36415; 81025; 82947; 87210; 74177; 96375; 96374; 99284; Q9967; J0696; J7030; 81003; 81015

== ENCOUNTER 2019-08-14 08:07 | Emergency (ER) | payer OTHER ==
--- OUTSIDE RECORDS SUMMARY | 2019-08-14 08:22 | XMS REPORT ---
:1980 [facility] Address [address] [place] [address] [address] [place] [address] Care Team Providers Name Role Phone Unavailable Unavailable Unavailable Problems This patient has no known problems. Allergies, Adverse Reactions, Alerts This patient has no known allergies or adverse reactions. Medications This patient has no known medications.
[2019-08-14] MEDS ORDERED: ONDANSETRON 4 MG/2 ML VIAL ONE (09:03)
[2019-08-14] MEDS ORDERED: KETOROLAC 30 MG/ML INJ ONE (09:03)
[2019-08-14 09:18] LABS: Urine Bacteria >50 /HPF (<20); Urine Culture Reflex Order REFLEXED; Urine RBC <5 /HPF (NONE SEEN)
[2019-08-14 09:19] LABS: Urine Blood 1+ (NEG); Urine Glucose 3+ (NEG); Urine Protein 2+ (NEG)
[2019-08-14 09:20] LABS: Absolute Lymphocytes (CBC) 2.6 K/uL (0.7-4.9); Basophils % 1.1 % (0-1.3); Hematocrit 38.7 % (36.0-45.0); Lymphocytes % 40.3 % (15.3-44.8); MPV 7.8 fL (7.6-11.3); RBC Red Blood Cell Count 4.57 M/uL (3.86-4.86)
[2019-08-14 09:34] LABS: ALT/SGPT 47 U/L (12-78); AST/SGOT 23 U/L (15-37); Albumin 3.9 g/dL (3.4-5.0); Alkaline Phosphatase 48 U/L (45-117); BUN Blood Urea Nitrogen 17 mg/dL (7-18); Bicarbonate 22 mmol/L (21-32); Bilirubin Direct < 0.1 mg/dL (0-0.2); Bilirubin Total 0.5 mg/dL (0.2-1.0); Glucose Level 266 mg/dL (74-106); Lipase 277 U/L (73-393); Potassium 4.6 mmol/L (3.5-5.1); Protein, Total 8.1 g/dL (6.4-8.2); Sodium Level 136 mmol/L (136-145)
[2019-08-14] MEDS ORDERED: FENTANYL CITR 100 MCG/2 ML ONE (09:46)
--- NOTE | 2019-08-14 11:17 | RAD REPORT ---
EXAM DESCRIPTION: US - Transvaginal Study Probe - 08/14/2019 11:00 am CLINICAL HISTORY: pelvic pain COMPARISON: TRANSVAGINAL STUDY PROBE dated 08/21/2012; Abdomen Pelvis W Contrast dated 08/04/2019Non e. TECHNIQUE: Endovaginal sonography was performed. FINDINGS: Multiple large nabothian cysts are present. No endometrial mass or polyp identified. No my ometrial mass is identified. Uterine size is normal and unchanged from the short interval August 04 study. Left ovary was fully obscured by bowel in the left adnexum. No left ovarian abnormality seen on the study. Right ovary is normal size with normal blood flow within the stroma. A 2.3 centimete r right ovarian cyst is present partially involuted from the August 04 study. No heterogeneity to hadley ggest ovarian cyst rupture or hemorrhage. No free fluid in the right adnexa or cul-de-sac. IMPRESSION: A 2.3 centimeter right ovarian cyst is present partially involuted since the August 04 study. No sonographic findings to suggest right ovarian cyst rupture or hemorrhage. No uterine abnormality. Left ovary and left adnexa obscured by bowel. No abnormalities were seen .
--- NOTE | 2019-08-14 11:52 | ER ---
Nurse's Notes [facility] Name: Valentina Franco Age: 39 yrs Sex: Female : 1980 Arrival Date: 08/14/2019 Time: 08:09 Bed 18 Private MD: Diagnosis: Abdominal and pelvic pain;Diabetes mellitus due to underlying condition with hyperglycemia Presentation: 08/14 08:17 Presenting complaint: Patient states: LLQ pain that radiates towards vaginal area x 1.5 ss months. Pt reports she has been seen in ER and has seen many specialist, but nobody has found anything that would be causing such pain. Transition of care: patient was not received from another setting of care. 08:17 Method Of Arrival: Ambulatory ss 08:17 Acuity: CYNTHIA 4 ss 08:20 Onset of symptoms was June 2019. Risk Assessment: Do you want to hurt yourself or ss someone else? Patient reports no desire to harm self or others. Initial Sepsis Screen: Does the patient meet any 2 criteria? HR > 90 bpm. Does the patient have a suspected source of infection? No. Patient's initial sepsis screen is negative. Care prior to arrival: None. 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 - Coronavirus screen:: The patient has NOT traveled to [place], [place], or [place] in the past 14 days. Proceed with normal triage process as indicated. - Social history:: Smoking status: Patient denies any tobacco usage or history of. - Ebola Screening: : Patient denies exposure to infectious person Patient denies travel to an Ebola-affected area in the 21 days before illness onset. Screenin:30 Abuse screen: Denies threats or abuse. Denies injuries from another. Nutritional jl7 screening: No deficits noted. Tuberculosis screening: No symptoms or risk factors identified. Fall Risk IV access (20 points). Total Mac Fall Scale indicates No Risk (0-24 pts). Assessment: 08:15 General: Appears in no apparent distress. uncomfortable, Behavior is cooperative, jl7 anxious, crying, . Pain: Complains of pain in suprapubic area and left lower quadrant Pain radiates to groin Pain currently is 11 out of 10 on a pain scale. Quality of pain is described as sharp, Pain began 2 weeks Is continuous. Neuro: Level of Consciousness is awake, alert, obeys commands, Oriented to person, place, time, situation. Cardiovascular: Patient's skin is warm and dry. Respiratory: Airway is patent Respiratory effort is even, unlabored, Respiratory pattern is regular, symmetrical. GI: Reports nausea. : Reports pain in left in suprapubic area lower quadrant(s) Denies burning with urination. Derm: Skin is pink, warm \\T\\ dry. 09:15 Reassessment: Patient appears in no apparent distress at this time. No changes from jl7 previously documented assessment. Patient and/or family updated on plan of care and expected duration. Pain level reassessed. Patient is alert, oriented x 3, equal unlabored respirations, skin warm/dry/pink. 10:45 Reassessment: Pt returned from US, medicated as ordered. jl7 11:45 Reassessment: Patient appears in no apparent distress at this time. Patient and/or jl7 family updated on plan of care and expected duration. Pain level reassessed. Patient is alert, oriented x 3, equal unlabored respirations, skin warm/dry/pink. Vital Signs: 08:16 Pulse 104; Resp 19; Temp 97.8(TE); Pulse Ox 98% on R/A; Weight 98.43 kg; Height 5 ft. 4 ss in. (162.56 cm); Pain 10/10; 10:45 BP 123 / 83; Pulse 76; Resp 16; Pulse Ox 98% ; Pain 10/10; jl7 11:12 Pain 8/10; jl7 11:45 BP 115 / 65; Pulse 75; Resp 16 S; Pulse Ox 100% on R/A; Pain 8/10; jl7 08:16 Body Mass Index 37.25 (98.43 kg, 162.56 cm) ED Course: 08:09 Patient arrived in ED. as 08:12 Johan Randall PA is PHCP. cp 08:12 Tiburcio Linder MD is Attending Physician. cp 08:16 Arm band placed on right wrist. ss 08:19 Triage completed. 08:23 Tom Mckeon, RN is Primary Nurse. jl7 09:00 Initial lab(s) drawn, by me, sent to lab. Inserted saline lock: 20 gauge in left jl7 antecubital area, using aseptic technique. Blood collected. 09:30 Assist provider with pelvic exam: Set up pelvic tray. Performed by Johan WALSH jl7 Patient tolerated poorly. 10:12 Patient has correct armband on for positive identification. Bed in low position. Call 5 light in reach. Warm blanket given. Pulse ox on. NIBP on. 10:38 Transvaginal Study Probe In Process Unspecified. EDMS 12:12 IV discontinued, intact, bleeding controlled, No redness/swelling at site. Pressure jl7 dressing applied. Administered Medications: 09:00 Drug: Zofran 4 mg Route: IVP; Site: left antecubital; jl7 09:30 Follow up: Response: No adverse reaction; Nausea unchanged jl7 09:05 Drug: TORadol - Ketorolac 15 mg Route: IVP; Site: left antecubital; jl7 09:30 Follow up: Response: No adverse reaction; Pain is unchanged, physician notified jl7 10:45 Drug: fentaNYL (PF) 25 mcg Route: IVP; Site: left antecubital; jl7 11:12 Follow up: Pain 8/10 Adult; Response: No adverse reaction; Pain is decreased jl7 Outcome: 11:51 Discharge ordered by MD. cp 12:12 Discharged to home ambulatory. jl7 12:12 Condition: stable 12:12 Discharge instructions given to patient, Instructed on discharge instructions, follow up and referral plans. medication usage, Demonstrated understanding of instructions, follow-up care, medications, Prescriptions given X 2. 12:13 Patient left the ED. jl7 Signatures: Dispatcher [employer] EDMS Ledy Ortiz Shelby, RN RN Johan Stovall PA PA cp Martinez, [facility] Tom Mckeon, RN RN jl7
--- NOTE | 2019-08-14 11:53 | EDPHYS ---
Physician Documentation [facility] Name: Valentina Franco Age: 39 yrs Sex: Female : 1980 Arrival Date: 08/14/2019 Time: 08:09 Bed 18 Private MD: ED Physician Tiburcio Linder HPI: 08/14 08:35 This 39 yrs old Female presents to ER via Ambulatory with complaints of cp Vaginal Pain, Abdominal Pain. 08:35 The patient presents with pelvic pain, that is located in/on the pelvis and left lower cp abdomen, the pain is described as burning. 08:35 Onset: The symptoms/episode began/occurred 1.5 month(s) ago. Associated signs and cp symptoms: Pertinent negatives: diarrhea, dysuria, fever, vaginal bleeding, vaginal discharge, vomiting. Severity of symptoms: in the emergency department the symptoms are unchanged. Patient has been seen in this ED for similar complaints and had CT of abdomen/pelvis done that was negative for acute findings. Patient reports she f/u with DR Vázquez who performed biopsy and testing for infection. Patient has completed multiple antibiotics w/o relief. 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 - Coronavirus screen:: The patient has NOT traveled to [place], [place], or [place] in the past 14 days. Proceed with normal triage process as indicated. - Social history:: Smoking status: Patient denies any tobacco usage or history of. - Ebola Screening: : Patient denies exposure to infectious person Patient denies travel to an Ebola-affected area in the 21 days before illness onset. ROS: 08:45 Constitutional: Negative for body aches, chills, fever, poor PO intake. cp 08:45 Eyes: Negative for injury, pain, redness, and discharge. cp 08:45 ENT: Negative for drainage from ear(s), ear pain, sore throat, difficulty swallowing, difficulty handling secretions. 08:45 Cardiovascular: Negative for chest pain, palpitations. 08:45 Respiratory: Negative for cough, shortness of breath, wheezing. 08:45 Abdomen/GI: Positive for abdominal pain, of the left lower quadrant, Negative for vomiting, diarrhea, constipation, black/tarry stool, rectal pain, rectal bleeding. 08:45 : Positive for pelvic pain, Negative for flank pain, vaginal bleeding, vaginal discharge. 08:45 Skin: Negative for rash. 08:45 All other systems are negative. Exam: 08:50 Constitutional: The patient appears in no acute distress, alert, awake, non-toxic, well cp developed, well nourished, obese. 08:50 Head/Face: Normocephalic, atraumatic. cp 08:50 Eyes: Periorbital structures: appear normal, Conjunctiva: normal, no exudate, no injection, Sclera: no appreciated abnormality, Lids and lashes: appear normal, bilaterally. 08:50 ENT: External ear(s): are unremarkable, Nose: is normal, Mouth: Lips: moist, Oral mucosa: pink and intact, moist, Posterior pharynx: is normal, airway is patent, no erythema, no exudate. 08:50 Chest/axilla: Inspection: normal, Palpation: is normal, no crepitus, no tenderness. 08:50 Cardiovascular: Rate: tachycardic, Rhythm: regular, Edema: is not appreciated, JVD: is not appreciated. 08:50 Respiratory: the patient does not display signs of respiratory distress, Respirations: normal, no use of accessory muscles, no retractions, labored breathing, is not present, Breath sounds: are clear throughout, no decreased breath sounds. 08:50 Abdomen/GI: Inspection: abdomen appears normal, Bowel sounds: active, all quadrants, Palpation: soft, in all quadrants, moderate abdominal tenderness, in the left lower quadrant, rebound tenderness, is not appreciated, voluntary guarding, is elicited in the left lower quadrant. 08:50 Back: pain, is absent, ROM is normal. 10:30 : Pelvic Exam: External exam: is normal, Speculum exam: scant bleeding, no cp cervicitis, os that is closed, no tissue in cervix is seen, no tissue in vagina is seen, bimanual exam reveals cervical motion tenderness, uterine tenderness, left adnexal tenderness, no adnexal mass on right, no adnexal mass on left, discharge, bloody, the nurse was present for the exam, Sexual behavior: the patient is sexually active, and reports a single partner, patient refuses tsting for GC/chlamydia and wet prep. 10:30 Skin: cellulitis, is not appreciated, no rash present. cp Vital Signs: 08:16 Pulse 104; Resp 19; Temp 97.8(TE); Pulse Ox 98% on R/A; Weight 98.43 kg; Height 5 ft. 4 ss in. (162.56 cm); Pain 10/10; 10:45 BP 123 / 83; Pulse 76; Resp 16; Pulse Ox 98% ; Pain 10/10; jl7 11:12 Pain 8/10; jl7 11:45 BP 115 / 65; Pulse 75; Resp 16 S; Pulse Ox 100% on R/A; Pain 8/10; jl7 08:16 Body Mass Index 37.25 (98.43 kg, 162.56 cm) ss MDM: 08:20 Patient medically screened. cp 10:00 Differential diagnosis: ofelia infection, cervicitis, endometriosis, nonspecific cp abdominal pain, ovarian cyst, UTI, pelvic inflammatory disease. 11:45 ED course: VSS. Patient reports burning pain similar to when diagnosed with bacterial cp vaginosis. will prescribe vaginal cream for treatment and discharge to home. 11:50 Data reviewed: vital signs, nurses notes, lab test result(s), radiologic studies, cp ultrasound, I have discussed the patient's presentation/case with the attending Emergency Department Physician; and as a result, I will discharge patient. 11:50 Counseling: I had a detailed discussion with the patient and/or guardian regarding: the cp historical points, exam findings, and any diagnostic results supporting the discharge/admit diagnosis, lab results, radiology results, the need for outpatient follow up, a family practitioner, to return to the emergency department if symptoms worsen or persist or if there are any questions or concerns that arise at home. Response to treatment: the patient's symptoms have mildly improved after treatment. 08/14 08:30 Order name: Basic Metabolic Panel; Complete Time: 10:12 cp 08/14 10:22 Interpretation: Normal except: GLUC 266; GFR 67; CA 10.0. cp 08/14 08:30 Order name: CBC with Diff; Complete Time: 09:37 cp 02/04 08:30 Order name: Creatinine for Radiology; Complete Time: 09:37 cp 02/ 08:30 Order name: Hepatic Function; Complete Time: 10:12 cp 02/04 10:22 Interpretation: Normal except: GLOB 4.2; A/G 0.9. cp 02/ 08:30 Order name: Lipase; Complete Time: 10:12 cp 02 08:30 Order name: Urine Microscopic Only; Complete Time: 09:37 cp 02/ 11:32 Interpretation: Normal except: UBACT >50; SQEPI 10-20. cp 02 08:50 Order name: Urine Dipstick--Ancillary (enter results); Complete Time: 09:37 bd 08/14 08:50 Order name: Urine --Ancillary (enter results); Complete Time: 09:37 bd 08/14 09:21 Order name: Glucose, Ancillary Testing; Complete Time: 09:37 EDMS 08/14 09:27 Order name: Urine Culture EDMS 08/14 10:37 Order name: Transvaginal Study Probe; Complete Time: 11:37 EDMS 04 11:39 Interpretation: Report reviewed. cp 08/14 08:30 Order name: IV Saline Lock; Complete Time: 09:18 cp 08/14 08:30 Order name: Labs collected and sent; Complete Time: 09:18 cp 08/14 08:30 Order name: Pelvic Exam Setup; Complete Time: 08:55 cp 08/14 08:30 Order name: Urine Dipstick-Ancillary (obtain specimen); Complete Time: 08:55 cp 08/14 08:30 Order name: Urine Test (obtain specimen); Complete Time: 09:18 cp 08/14 08:32 Order name: Accucheck Blood Glucose; Complete Time: 08:55 cp Administered Medications: 09:00 Drug: Zofran 4 mg Route: IVP; Site: left antecubital; jl7 09:30 Follow up: Response: No adverse reaction; Nausea unchanged jl7 09:05 Drug: TORadol - Ketorolac 15 mg Route: IVP; Site: left antecubital; jl7 09:30 Follow up: Response: No adverse reaction; Pain is unchanged, physician notified jl7 10:45 Drug: fentaNYL (PF) 25 mcg Route: IVP; Site: left antecubital; jl7 11:12 Follow up: Pain 8/10 Adult; Response: No adverse reaction; Pain is decreased jl7 Disposition: 08/15 06:59 Co-signature as Attending Physician, Tiburcio Linder MD. rn Disposition: 08/14/19 11:51 Discharged to Home. Impression: Abdominal and pelvic pain, Diabetes mellitus due to underlying condition with hyperglycemia. - Condition is Stable. - Discharge Instructions: Pelvic Pain, Female, Blood Glucose Monitoring, Adult, Diabetes Mellitus and Food. - Prescriptions for clindamycin phosphate 2 % Vaginal cream - insert 1 applicatorful by VAGINAL route once daily for 10 days at bedtime; 10 unit. Ibuprofen 800 mg Oral Tablet - take 1 tablet by ORAL route every 8 hours As needed take with food; 30 tablet. - Medication Reconciliation Form, Thank You Letter, Antibiotic Education, Prescription Opioid Use form. - Follow up: Private Physician; When: 2 - 3 days; Reason: Recheck today's complaints. - Problem is an ongoing problem. - Symptoms have improved. Signatures: Dispatcher [employer] [facility] Tiburcio Linder MD MD rn Smirch, Shelby, RN RN ss Page, Corey, PA PA cp oTm Mckeon RN RN jl7 Corrections: (The following items were deleted from the chart) 08/14 10:22 10:13 Normal except: GLUC 266; GFR 67. cp cp 10:37 09:39 Pelvis Complete+US.RAD.BRZ ordered. [facility] EDMD 11:52 11:51 08/14/2019 11:51 Discharged to Home. Impression: Abdominal and pelvic pain. cp Condition is Stable. Prescriptions for clindamycin phosphate 2 % Vaginal cream - insert 1 applicatorful by VAGINAL route once daily for 10 days at bedtime; 10 unit. and Forms are Medication Reconciliation Form, Thank You Letter, Antibiotic Education, Prescription Opioid Use. Follow up: Private Physician; When: 2 - 3 days; Reason: Recheck today's complaints. Problem is an ongoing problem. Symptoms have improved. cp 12:13 11:52 08/14/2019 11:51 Discharged to Home. Impression: Abdominal and pelvic pain; jl7 Diabetes mellitus due to underlying condition with hyperglycemia. Condition is Stable. Discharge Instructions: Pelvic Pain, Female. Prescriptions for clindamycin phosphate 2 % Vaginal cream - insert 1 applicatorful by VAGINAL route once daily for 10 days at bedtime; 10 unit, Ibuprofen 800 mg Oral Tablet - take 1 tablet by ORAL route every 8 hours As needed take with food; 30 tablet. and Forms are Medication Reconciliation Form, Thank You Letter, Antibiotic Education, Prescription Opioid Use. Follow up: Private Physician; When: 2 - 3 days; Reason: Recheck today's complaints. Problem is an ongoing problem. Symptoms have improved. cp
[2019-08-14 12:42] VITALS: TEMP 97.8
[2019-08-14 12:51] VITALS: BP 115/65; O2SAT 100
== END 2019-08-14 12:13 | disposition home or self-care (01) ==
LOC: ER 08:07
DX: R10.2 Pelvic and perineal pain (principal); E11.65 Type 2 diabetes mellitus with hyperglycemia; Z79.4 Long term (current) use of insulin; E78.00 Pure hypercholesterolemia, unspecified
CPT/HCPCS: 87088; 85025; 87086; 80048; 36415; 81025; 82947; 80076; 83690; 76830; 96375; 96374; 99284; J3010; J2405; 81003; 81015

== ENCOUNTER 2020-03-23 15:34 | Emergency (ER) | payer OTHER ==
--- OUTSIDE RECORDS SUMMARY | 2020-03-23 15:37 | XMS REPORT | Clinical Summary ---
:1980 Author Organization [facility] Address [address] [place] [address] Care Team Providers Name Role Phone Asked, Pcp Primary Care Provider Unavailable Allergies Active Allergy Reactions Severity Noted Date Comments Cefpodoxime Other (See Comments) High 02/22/2019 Eye and Throat Swelling 30 mins after taki ng medication Medications Medication Sig Dispensed Refills Start End Status Date Date MV,CA,MIN/IRON/FA/G Take by mouth. 0 Active UARANA/CAFF (ONE-A-DAY WOMEN'S ACTIVE ORAL) loratadine Take 10 mg by 0 03/16/20 Activ e (CLARITIN) 10 mg mouth daily. 18 tablet gabapentin Take 1 capsule 90 capsule 09/26/19 Act arsalan (NEURONTIN) 300 mg (300 mg total) 20 021 capsuleIndications: by mouth 3 Interstitial (three) times cystitis a day. amb custom compound Compouned 40 g 10/01/19 Active vaginal cream: 20 6% gabapentin, 2% Lidocaine, 2 % baclofen in water washable based. Apply 0.5 gram to outer vagina once or twice daily. conjugated Apply 0.5 gram 30 g 1 10/02/19 Acti ve estrogens vaginally 20 (Premarin) 0.625 either mg/gram vaginal internally creamIndications: (applicator) Vaginal dryness or with finger to outer vagina twice weekly at night amb custom compound Boric acid 600 14 suppository 0 10/12/19 Active mg 20 suppository: insert 1(one) vaginally at night for 14 (fourteen) days. nystatin-triamcinol Apply 30 g 1 11/06/19 Active one (MYCOLOG II) topically 4 20 100,000-0.1 (four) times a unit/g-% day as needed creamIndications: (vaginal Infection due to itching or Fiona glabrata infection). To outer vagina fluconazole Take 1 tablet 20 tablet 0 11/22/19 Acti ve (Diflucan) 150 MG (150 mg total) 20 020 tabletIndications: by mouth once Fiona glabrata a week for 20 infection, Yeast doses. vaginitis MULTIVITAMIN WITH Take 1 tablet 0 Discontinued IRON (HAIR VITAMINS by mouth 020 ORAL) daily. nitrofurantoin, Take 100 mg 40 capsule 0 02/23/20 E xpired macrocrystal-monohy twice daily 19 019 drate, (MACROBID) for 7 days and 100 MG capsule then continue to take 100 mg once daily afterward. naeem-s.yasemin Take 1 capsule 28 capsule 0 02/23/20 040 03/12 Discontinued s-phsal-hyo by mouth 4 020 (URIBEL) (four) times a 118-10-40.8-36 mg day. capsule nystatin-triamcinol Apply 30 g 0 02/23/20 Discontinued one (MYCOLOG II) topically 4 020 100,000-0.1 (four) times a unit/g-% cream day. nitrofurantoin, Take 1 capsule 10 capsule 0 08/23/19 macrocrystal-monohy (100 mg total) 20 020 drate, (MACROBID) by mouth 2 100 MG capsule (two) times a day for 5 days. nystatin-triamcinol Apply 30 g 0 08/27/19 Discontinued one (MYCOLOG II) topically 4 020 ( Reorder) 100,000-0.1 (four) times a unit/g-% day. To outer creamIndications: vagina Vaginal pain hydrOXYzine Take 1 tablet 30 tablet 11 08/27/19 Disc ontinued (ATARAX) 10 MG (10 mg total) 20 020 ( Side effects) tabletIndications: by mouth Interstitial nightly. cystitis gabapentin Take 1 capsule 90 capsule 3 09/03/19 Dis continued (NEURONTIN) 100 mg (100 mg total) 20 020 (Dose capsule by mouth 3 adjustmen t) (three) times a day. Can also take as needed for pain fluconazole Take 1 tablet 3 tablet 1 09/14/19 Expi red (DIFLUCAN) 150 MG (150 mg total) 20 020 tablet by mouth every 3 (three) days for 3 days. pentosan Take 1 capsule 90 capsule 11 10/02/19 Disc ontinued polysulfate (100 mg total) 20 020 (Elmiron) 100 mg by mouth 3 capsuleIndications: (three) times Interstitial a day for 30 cystitis days. fluconazole One tab every 12 tablet 0 10/11/19 Disc ontinued (Diflucan) 150 MG 3 days x 3 20 020 ( Alternate tablet doses, then therapy) take one tab weekly for 2 months phenazopyridine Take 1 tablet 10 tablet 0 11/01/19 (Pyridium) 200 MG (200 mg total) 20 020 tabletIndications: by mouth 3 Acute cystitis (three) times without hematuria a day as needed for bladder spasms for up to 3 days. nitrofurantoin, Take 1 capsule 14 capsule 0 11/01/19 macrocrystal-monohy (100 mg total) 20 020 drate, (Macrobid) by mouth 2 100 MG (two) times a capsuleIndications: day for 7 Acute cystitis days. without hematuria fluconazole Take 1 tablet 3 tablet 0 11/01/19 Expi red (Diflucan) 150 MG (150 mg total) 20 020 tabletIndications: by mouth every Infection due to 3 (three) days Fiona glabrata for 3 doses. fluconazole Take 1 tablet 3 tablet 0 11/16/19 Expi red (Diflucan) 150 MG (150 mg total) 20 020 tablet by mouth every third day for 3 doses. fluconazole Take 1 tablet 1 tablet 1 12/11/19 Expi red (Diflucan) 150 MG (150 mg total) 20 020 tablet by mouth once for 1 dose. Hospital, Clinic, or Ordered Dose Route Frequency Start Date End D ate Status Other Facility Administered Medication HEParin (porcine) 05366 Units Darlene weekly 10/02/2019 Active injection 20,000 UnitsIndications: Interstitial cystitis, Bladder pain alkalinized 35 mL Darlene once 08/27/2019 08/27/2019 Ended bupivacaine and heparin bladder installationIndicatio ns: Interstitial cystitis bupivacaine (PF) 30 mL inj once 09/03/2019 09/03/2019 E nded (MARCAINE) 0.25 % (2.5 mg/mL) solution 30 mLIndications: Bladder pain HEParin (porcine) 2100 Units Darlene once 09/03/2019 09/03/2019 Ended injection 2,100 UnitsIndications: Bladder pain sodium bicarbonate 30 mEq Darlene once 09/03/2019 09/03/2019 Ended 8.4 % (1 mEq/mL) injection 30 mEqIndications: Bladder pain HEParin (porcine) 66568 Units Darlene weekly 09/10/2019 0 Discontinued injection 20,000 UnitsIndications: Bladder pain, Vaginal pain bupivacaine 30 mL inj once 09/10/2019 09/10/2019 Ended (MARCAINE) 0.25 % (2.5 mg/mL) injection 30 mLIndications: Bladder pain, Vaginal pain sodium bicarbonate 25 mEq Darlene once 09/10/2019 09/10/2019 Ended 8.4 % (1 mEq/mL) injection 25 mEqIndications: Bladder pain, Vaginal pain sodium bicarbonate 25 mEq Darlene once 10/02/2019 10/02/2019 Ended 8.4 % (1 mEq/mL) injection 25 mEqIndications: Interstitial cystitis, Bladder pain bupivacaine 30 mL inj once 10/02/2019 10/02/2019 Ended (MARCAINE) 0.25 % (2.5 mg/mL) injection 30 mLIndications: Interstitial cystitis, Bladder pain alkalinized 35 mL Darlene once 10/30/2019 10/30/2019 Ended bupivacaine and heparin bladder installationIndicatio ns: IC (interstitial cystitis) alkalinized 35 mL Darlene once 11/22/2019 11/22/2019 Ended bupivacaine and heparin bladder installationIndicatio ns: Interstitial cystitis Active Problems Problem Noted Date Vulvar pain 11/22/2019 Pyelonephritis 01/16/2019 Pelvic pain in female 01/15/2016 Urge incontinence 01/07/2016 LLQ abdominal pain 09/25/2015 Urinary incontinence, mixed (Urge predominant) 016 History of ovarian cyst 09/25/2015 Encounters Date Type Specialty Care Team Description 12/11/2019 Orders Only Urogynecology Aditi Gaytan, FIELD ACCOUNT MANAGER 12/06/2019 Telephone Urogynecology Juana Wei RN 11/22/2019 Office Visit Urogynecology Latoya Vallecillo al cystitis (Primary Dx); Carrie Elise MD Vaginal pa in; Fiona glabrat a infection; Yeast vaginitis 11/22/2019 Travel 11/06/2019 Office Visit Urogynecology Latoya Vallecillo Infection due to Fiona glabrata (Primary Dx); Carrie Elise MD Bladder pa in; Fatty liver; Vaginal pain 11/06/2019 Travel 11/01/2019 Telemedicine Urogynecology Latoya Vallecillo Infection due to Fiona glabrata (Primary Dx); Carrie Elise MD Acute cyst itis without hematuria 11/01/2019 Travel 11/01/2019 Telephone Gynecologic Oncology Babar Temple MA 10/30/2019 Office Visit Urogynecology Carina Forrester IC (interst itial cystitis) (Primary Dx); MDaja, OPERATIONS ARCHITECT Bladder pain 10/30/2019 Travel 10/30/2019 Abstract Urogynecology Juana Wei, IC (inters titial RN cystitis) (Prim thelma Dx) 10/30/2019 Telephone Urogynecology Danelle Saucedo, FIELD ACCOUNT MANAGER 10/23/2019 Telephone Urogynecology Juana Wei, PETE 10/23/2019 Telephone Urogynecology Juana Wei, PETE 10/18/2019 Telemedicine Urogynecology Latoya Vallecillo Yeast vagi nitis (Primary Dx); Carrie Elise MD IC (inters titial cystitis); Vaginal pain 10/18/2019 Travel 10/12/2019 Telephone Urogynecology Danelle Saucedo, FIELD ACCOUNT MANAGER 10/11/2019 Telephone Urogynecology Danelle Saucedo, FIELD ACCOUNT MANAGER 10/03/2019 Telephone Urogynecology Hui Mejia MA 10/02/2019 Office Visit Urogynecology Latoya Vallecillo Interstibrit al cystitis (Primary Dx); Carrie Elise MD Bladder pa in; Yeast vaginitis ; Vaginal dryness 10/02/2019 Travel 10/01/2019 Telemedicine Urogynecology Latoya Vallecillo Bladder pa in (Primary Dx); Carrie Elise MD Interstiti al cystitis 10/01/2019 Telephone Urogynecology Aditi Gaytan LVN 10/01/2019 Travel 09/28/2019 Travel 09/24/2019 Telephone Urogynecology Latoya Vallecillo al cystitis Carrie Elise MD (Primary D x) 09/19/2019 Travel 09/13/2019 Telephone Urogynecology Hui Mejia, [place] 09/10/2019 Office Visit Urogynecology Latoya Vallecillo Bladder pa in (Primary Dx); Carrie Elise MD Vaginal pa in; Interstitial cy stitis 09/05/2019 Telephone Urogynecology Hui Mejia, [place] 09/03/2019 Office Visit Urogynecology Latoya Vallecillo Interstibrit al cystitis (Primary Dx); Carrie Elise MD Bladder pa in 08/27/2019 Office Visit Urogynecology Latoya Vallecillo Bladder pa in (Primary Dx); Carrie Elise MD Interstibrit al cystitis; Vaginal pain; Levator spasm 08/23/2019 Orders Only Urogynecology Latoya Vallecillo MD 08/23/2019 Telephone Gynecologic Oncology Latoya Vallecillo Uri nary tract Carrie Elise MD infection without hematuria, site unspecified (Pr imary Dx) after 03/23/2019 Family History Medical History Relation Name Comments Diabetes Brother Diabetes Mother Diabetes Sister Relation Name Status Comments Brother Alive Father unknown hx Mother Alive Sister Alive Social History Tobacco Use Types Packs/Day Years Used Date Never Smoker Smokeless Tobacco: Never Used Alcohol Use Drinks/Week oz/Week Comments Yes 1 Glasses of wine 1.0 Megan occa . Alcohol Habits Answer Date Recorded How often do you have a drink containing alcohol? Monthly or less 11/22/2019 How many drinks containing alcohol do you have on a 1 or 2 11/22/2019 typical day when you are drinking? How often do you have six or more drinks on one Never 11/22/2019 occasion? Sex Assigned at Date Recorded Not on file Job Start Date Occupation Industry Not on file Not on file Not on file Travel History Travel Start Travel End [place] 09/22/2019 09/23/2019 Last Filed Vital Signs Vital Sign Reading Time Taken Comments Blood Pressure 125/84 11/22/2019 11:41 AM CDT Pulse 103 11/22/2019 11:41 AM CDT Temperature 36.9 C (98.4 F) 11/22/2019 11:41 AM CDT Respiratory Rate - - Oxygen Saturation - - Inhaled Oxygen Concentration - - Weight 99.8 kg (220 lb) 11/22/2019 11:41 AM CDT Height 165.1 cm (5' 5") 11/22/2019 11:41 AM CDT Body Mass Index 36.61 11/22/2019 11:41 AM CDT Plan of Treatment Health Maintenance Due Date Last Done Comments DIABETIC RETINAL EYE EXAM 1980 DIABETIC FOOT EXAM 02/06/1988 URINE MICROALBUMIN 02/06/1988 CERVICAL CANCER SCREENING 1999 INFLUENZA VACCINE 04/10/2020 03/19/2013 Implants Implanted Type Area Investment Banking Associate Device Shelf Model / Identifier Expiration Serial / Date Lot Kit Nurostmltn Lead Tined 4 Elctrd Spaced 3mm 28cm - [id number] Cardiac Pacing N/A: [employer] 11/03/2019 [id number] / Implanted: 01/07/2016 at [facility] (Quantity not on file) Katrin ds or N/A NEUROMODULATION / Electrodes or [id number] A Accessories Verifyexternal Neurostimulator(Includes 1 Belt) - [id number] Neuros urgical N/A: [employer] 12/07/2020 [id number] / Implanted: 01/07/2016 at [facility] (Quantity not on file) Imp lants N/A NEUROMODULATION [id number] / [id number] Neurostimulator Imp Interstim Ii 25g20z8.7mm Nrechrgbl - [id number] - [id number] Neurosurgical Right: [employer] [facility] - 04/23/2017 [id number] / Implanted: Qty: 1 on 01/15/2016 by Latoya Gama MD at [facility] Implants Coccyx NEUROLOGICAL [id number] / [id number] Piece Marker Small Arms Pt For Sacral Nuromodltn Interstim Icon - [id number] Dion rosurgical N/A: [employer] [facility] - [id number] / Implanted: Qty: 1 on 01/15/2016 by Latoya Gama MD at [facility] Implants N/A NEUROLOGICAL / Matrix Hmstc Floseal 5ml W/ Humn F2 - [id number] Surgical N/A: BA XTER [id number] / Implanted: Qty: 1 on 05/25/2017 by Latoya Gama MD at [facility] Implants; N/A BIOSCIENCE / Expanders; Extenders; Surgical Wires Description:exp date 08/24/2018 lot # [id number] System Sling Mdurethrl Trnsvagnl Mesh Asmbly Advantage Fit - [id number] Urological N/A: N/A [facility] UROLOGY/GYNECOLOGY 04/18/2020 [id number] / Implanted: Qty: 1 on 05/25/2017 by Latoya Gama MD at [facility] Implants or / Sets [id number] Procedures Procedure Name Priority Date/Time Associated Diagnosis Comme nts POC URINALYSIS Routine 11/22/2019 12:18 Interstitial cystitis Results for this DIPSTICK PM CDT procedure are i n the results section. MEASURE POST VOID Routine 11/22/2019 Interstitial cystitis R esults for this RESIDUAL procedure are i n the results section. POC URINALYSIS Routine 11/06/2019 11:41 Bladder pain Results f or this DIPSTICK AM CDT procedure are i n the results section. ALT (SGPT) Routine 11/06/2019 11:41 Fatty liver Results for this AM CDT procedure are i n the results section. AST (SGOT) Routine 11/06/2019 11:41 Fatty liver Results for this AM CDT procedure are i n the results section. MEASURE POST VOID Routine 11/06/2019 11:30 Bladder pain Result s for this RESIDUAL AM CDT procedure are i n the results section. POC URINALYSIS Routine 10/30/2019 1:57 Bladder pain Results f or this DIPSTICK PM CDT procedure are i n the results section. MEASURE POST VOID Routine 10/30/2019 1:15 Bladder pain Result s for this RESIDUAL PM CDT procedure are i n the results section. FUNGUS CULTURE Routine 10/14/2019 NUSWAB VAGINITIS Routine 10/02/2019 2:28 Results for this (VG) PM CDT procedure are i n the results section. SPECIMEN STATUS Routine 10/02/2019 2:28 Results for this REPORT PM CDT procedure are i n the results section. YEAST SCREEN Routine 10/02/2019 2:28 Yeast vaginitis Results for this CULTURE PM CDT procedure are i n the results section. NUSWAB VAGINITIS Routine 09/10/2019 2:45 Bladder pain Results for this (VG) PM [employer] TERMINAL SUPERVISOR Vaginal pain procedure are i n the results section. POC URINALYSIS Routine 09/10/2019 1:21 Bladder pain Results f or this DIPSTICK PM [employer] SUPERVISOR procedure are i n the results section. POC URINALYSIS Routine 09/03/2019 2:36 Bladder pain Results f or this DIPSTICK PM [employer] TERMINAL SUPERVISOR procedure are i n the results section. URINE CULTURE Routine 08/23/2019 4:36 Results fo r this PM [employer] TERMINAL SUPERVISOR procedure are i n the results section. after 03/23/2019 Results POC urinalysis dipstick (11/22/2019 12:18 PM CDT)Only the most recent of5 resultswithin the time period is included. Pathologist Sig nature Color urine, POC [place] Clarity urine, POC Cloudy Glucose urine, POC 2+ (A) Negative Bilirubin urine, POC Negative Negative Ketones urine, POC Negative Negative Specific gravity urine, 1.010 1.005 - 1.030 POC Blood urine, POC Negative Negative pH urine, POC 5.0 5.0, 5.5, 6.0, 6.5, 7.0, 7.5, 8.0, 8.5 Protein urine, POC Negative Negative Urobilinogen urine, POC 2.0 (A) <2.0 Nitrite urine, POC Negative Negative Leukocyte esterase Negative Negative urine, POC Specimen Urine Measure post void residual (11/22/2019)Only the most recent of3 resultswithin the time period is included. Pathologist Sig nature PVR volume 18 Specimen ALT (SGPT) (11/06/2019 11:41 AM CDT) Pathologist Sig nature ALT 60 (H) 0 - 32 IU/L [facility] Specimen Blood Narrative Performed At Performed at: [facility] - [facility] [id number] Career Orientation Teacher: Jett Blunt MD, Phone: [phone] Performing Organization Address [place] [place] [facility] AST (SGOT) (11/06/2019 11:41 AM CDT) Pathologist Sig nature AST 30 0 - 40 IU/L [facility] Specimen Blood Narrative Performed At Performed at: - [facility] [address] [place] [id number] Career Orientation Teacher: Jett Blunt MD, Phone: [phone] Performing Organization Address [facility] [place] Phone Number [facility] Fungus culture (10/14/2019) Narrative Performed At This result has an attachment that is no t available. Specimen Status Report (10/02/2019 2:28 PM CDT) Specimen Status COMMENT [facility] Report Comment: Written Authorization Written Authorization Written Authorization Received. Authorization received from DANELLE SAUCEDO 10-11-2019 Logged by Jolly Vicente Specimen Narrative Performed At [facility]formed at: [facility] [address] [place] [id number] Career Orientation Teacher: Jett Blunt MD, Phone: [phone] Performing Organization Address [facility] [place] Phone Number [facility] NuSwab Vaginitis (VG) (10/02/2019 2:28 PM CDT)Only the most recent of2 results within the time period is included. Atopobium vaginae Low - 0 Score [facility] BVAB 2 Low - 0 Score [facility] Megasphaera species Low - 0 Score [facility] Comment: Calculate total score by adding the 3 individual bacte rial vaginosis (BV) marker scores together. Total score i s interpreted as follows: Total score 0-1: Indicates the absence of BV. Total score 2: Indeterminate for BV. Additional cli nical data should be evaluated to e stablish a diagnosis. Total score 3-6: Indicates the presence of BV. This test was developed and its performance characteri stics determined by [facility]. It has not been cleared or ap proved by the Food and Drug Administration. The FDA has det ermined that such clearance or approval is not necessary. Fiona albicans, Negative Negative [facility] SOHAN C. glabrata, DNA Positive (A) Negative [facility] Comment: Published data demonstrate that up to 65% of Fiona g labrata identified in cases of vaginal candidiasis have decrea sed susceptibility to fluconazole. Trichomonas vag by Negative Negative [facility] SOHAN Specimen Narrative Performed At Test(s) 162791-Zuyiahv albicans, SOHAN; 18 0057-Fiona glabrata, SOHAN [facility] was developed and its performance charac teristics determined by [facility]. It has not been cleared or a pproved by the Food and Drug Administration. Performed at: - [address] [id number] Career Orientation Teacher: John Adame MD, Phone: [phone] Performing Organization Address [facility] [place] Phone Number [facility] Yeast screen culture (10/02/2019 2:28 PM CDT) Pathologist Sig nature Yeast screen culture Fiona glabrata [facility] isolate Moderate growth Specimen Vaginal - Vulva Narrative Performed At Performed at: - Lab[address] [id number] Career Orientation Teacher: John Adame MD, Phone: [phone] Performing Organization Address [facility] [place] Phone Number [facility] Urine culture (08/23/2019 4:36 PM F[employer]AL SUPERVISOR) Urine culture SEE NOTE [employer] Comment: [place] CULTURE, URINE, ROUTINE Micro Number: [id number] Test Status: Final Specimen Source: URINE Specimen Quality: Adequate Result: Multiple organisms p resent, each less than 10,000 CFU/mL. These organisms , commonly found on external and internal genitalia, are considered to be col onizers. No further testing performed. Specimen Resulting Agency Comment Performing Organization Information: Site ID: [id number] Name: [facility] Address: [address] [place] [id number] Director: Ad Olsen Performing Organization Address [facility] [place] Phone Number [employer] [address] [address] after 03/23/2019 Advance Directives For more information, please contact: [phone] Type Date Recorded Patient Director Business Management Explanati on Advance Directives, Living Will 01/15/2019 11:50 PM and Medical Power of Category Development Manager
--- OUTSIDE RECORDS SUMMARY | 2020-03-23 15:38 | XMS REPORT | Continuity of Care Document ---
:1980 Author Organization [facility] t Address [address] [place] [address] Care Team Providers Name Role Phone Asked, Pcp Primary Care Physician Unavailable Tarun CARDOZO Attending Clinician Lucila URBINAN Attending Clinician Unavailable Eriberto FREEMAN Attending Clinician Unavailable Ernst MEI, Carrie Elise Attending Clinician [phone] Maverick RODRIGUEZ Attending Clinician Unavailable Jerry Forrester NP Attending Clinician Mine MATOS Attending Clinician Unavailable Roberto RODRIGUEZ Attending Clinician Unavailable Amador MEI Attending Clinician Payers Payer Name Policy Type Policy Number Effective Date Expiration Date Nakul JOY OPEN xxxxxxxxx 2019 [place] ACCESS/NETWORKxx 00:00:00 Methodis t dadnlfe37/1/2019 -PresentHMO Problems Condition Condition Condition Status Onset Resolution Last Treating Co mments Source Name Details Category Date Date Treatment Clinician Date Vulvar Vulvar Disease Active [place] pain pain 5-14 Methodi 00:00: st 00 Pyelonephr Pyelonephr Disease Active [place] itis itis 7-09 [facility]i 00:00: st 00 Pelvic Pelvic Disease Active [place] pain in pain in 7-07 Methodi female female 00:00: st 00 Urge Urge Disease Active [place] incontinen incontinen 6-29 Me thodi ce ce 00:00: st 00 LLQ LLQ Disease Active [place] abdominal abdominal 3-17 Meth ally pain pain 00:00: st 00 Urinary Urinary Disease Active [place] incontinen incontinen 3-17 Me thodi ce, mixed ce, mixed 00:00: st (Urge (Urge 00 predominan predominan t) t) History of History of Disease Active [place] ovarian ovarian 3-17 [facility] cyst cyst 00:00: st 00 Allergies, Adverse Reactions, Alerts Allergy Allergy Status Severity Reaction(s) Onset Inactive Treating Comm ents Source Name Type Date Date Clinician alcohol FA Active [place] [facility] 7-08 [place] 00:00: Orthope 00 dic H[facility] tequila DA Active [place] [facility] 7- Clear 00:00: Fonseca 00 [facility] Cefpodox Propensi Active Other (See Eye and H eddie dewayne ty to Comments) 8-15 Throat Methodi adverse 00:00: Swelling st reaction 00 30 mins s to after drug taking medicatio n alcohol FA Active [place] 2015-07 [facility] 2-27 [place] 00:00: Orthope 00 dic Hospita l Family History Family Member Diagnosis Comments Start Date Stop Date Source Natural brother Diabetes [facility] ethodist Natural mother Diabetes [place] Me thodist Natural sister Diabetes [place] [facility] thodist Social History Social Habit Start Date Stop Date Quantity Comments Source Sex Assigned At [facility] ethodist Alcohol intake 2019-11-22 2019-11-22 Current drinker [place] [employer] 00:00:00 00:00:00 of alcohol (finding) History [facility] 2019-11-22 2019-11-22 2 [place] Meth odist Alcohol Frequency 00:00:00 00:00:00 History [facility] 2019-11-22 2019-11-22 1 [place] Meth odist Alcohol Std 00:00:00 00:00:00 Drinks History SDOH 2019-11-22 2019-11-22 1 Ronnell Mcdonald odciro Alcohol Binge 00:00:00 00:00:00 Alcohol Comment 2016-09-09 2016-09-09 Megan joe. Tahir Haider 00:00:00 00:00:00 Smoking Status Start Date Stop Date Source Never smoker Ronnell Pastoris t Medications Ordered Filled Start Stop Current Ordering Indication Dosage Frequency Signature Comments Components Source Medication Medication Date Date Medication? Clinician (SIG) Name Name fluconazole 2019- 2020- No 150mg Take 1 [place] (Diflucan) 12-10 tablet Method i 150 MG 00:00: 23:59 ([address] tablet 00 :00 total) by mouth once for 1 dose. alkalinized 2020- No Interstitia 35mL [place] bupivacaine 11-21-14 l cystitis M ethodi and heparin 17:00: 11:45 st bladder 00 :00 installatio n MV,CA,MIN/I 2019-0 Yes Take by Patsy ballard SUNNY/FA/GUAR 11-21 mouth. Method i MARKO/CAFF 11:53: st (ONE-A-DAY 29 WOMEN'S ACTIVE ORAL) fluconazole 2019- 2020- No Yeast 150mg Q7D Take 1 [place] (Diflucan) 11-21 09-25 vaginitis tablet M ethodi 150 MG 00:00: 23:59 ([address] tablet 00 :00 total) by mouth once a week for 20 doses. fluconazole 2019-0 2020- No 150mg Q72H Take 1 [place] (Diflucan) 11-15 05-15 tablet Method i 150 MG 00:00: 23:59 ([address] tablet 00 :00 total) by mouth every third day for 3 doses. nystatin-tr 2020-0 Yes Infection Q.25D Apply Reynaga iamcinolone 4-28 due to topically M ethodi (MYCOLOG 00:00: Fiona 4 (four) st II) 00 glabrata times a 100,000-0.1 day as unit/g-% needed cream (vaginal itching or infection) . To outer vagina nitrofurant 2019-0 2020- No Acute 100mg Q.5D Take 1 [place] oin, 10-31 04-30 cystitis capsule Methodi macrocrysta 00:00: 23:59 without ([address] l-monohydra 00 :00 hematuria total) by te, mouth 2 (Macrobid) (two) 100 MG times a capsule day for 7 days. fluconazole 2019- No Infection 150mg Q3D Take 1 Reynaga (Diflucan) 10-31 due to tablet Meth ally 150 MG 00:00: 23:59 Fiona ([address] tablet 00 :00 glabrata total) by mouth every 3 (three) days for 3 doses. phenazopyri 2019- No Acute 200mg Q.05143104 Take 1 [place] dine 10-31 cystitis [id number] tablet Ks mahesh (Pyridium) 00:00: 23:59 without 3D ([address] 200 MG 00 :00 hematuria total) by tablet mouth 3 (three) times a day as needed for bladder spasms for up to 3 days. alkalinized 2019- No IC 35mL [place] bupivacaine 10-29 (interstiti Methodi and heparin 11:00: 13:[address] bladder 00 :00 cystitis) installatio n MULTIVITAMI 2019- No 1{tbl} QD Take 1 [place] N WITH IRON 10-17 tablet by Me aragon (HAIR 11:31: 00:[address] VITAMINS 24 :00 daily. ORAL) amb custom 2019- Yes Boric acid [place] compound -03 600 mg Methodi 00:00: suppositor st 00 y: insert 1(one) vaginally at night for 14 (fourteen) days. fluconazole 2019- 2020- No One tab [place] (Diflucan) 10-10- every 3 Metho di 150 MG 00:00: 00:[address] tablet 00 :00 doses, then take one tab weekly for 2 months HEParin 2019-0 Yes Bladder 65533S Q7D [place] (porcine) -24 pain [facility]i injection 12:00: st 20,000 00 Units sodium 2019-2019- No Bladder 25meq [place] bicarbonate 10-01 pain Methodi 8.4 % (1 10:00: 11:54 st mEq/mL) 00 :00 injection 25 mEq bupivacaine 2019- No Bladder 30mL [place] (MARCAINE) 10-01 pain Methodi 0.25 % (2.5 10:00: 11:52 st mg/mL) 00 :00 injection 30 mL conjugated Yes Vaginal Apply 0.5 Reynaga estrogens 10-01 dryness gram [facility]i (Premarin) 00:00: vaginally st 0.625 00 either mg/gram internally vaginal (applicato cream r) or with finger to outer vagina twice weekly at night pentosan No Interstitia 100mg Q.86824377 Take 1 Reynaga polysulfate 10-01-09 l cystitis [id number] capsule Methodi (Elmiron) 00:00: 00:00 3D ([address] 100 mg 00 :00 total) by capsule mouth 3 (three) times a day for 30 days. amb custom Yes Compouned Rene claudia compound 09-30 vaginal Methodi 00:00: cream: 6% st 00 gabapentin , 2% Lidocaine, 2 % baclofen in water washable based. Apply 0.5 gram to outer vagina once or twice daily. gabapentin Interstitia 300mg Q.37412806 Take 1 Reynaga (NEURONTIN) 09-25 03-18 l cystitis [id number] capsule Methodi 300 mg 00:00: 23:59 3D ([address] capsule 00 :00 total) by mouth 3 (three) times a day. fluconazole No 150mg Q3D Take 1 Rene lanzabandar (DIFLUCAN) 09-13 03-09 tablet Method i 150 MG 00:00: 23:59 ([address] tablet 00 :00 total) by mouth every 3 (three) days for 3 days. HEParin 2019- No Vaginal 91649Y Q7D [place] (porcine) 09-09 pain Methodi injection 14:15: 11:51 st 20,000 00 :14 Units bupivacaine 2019-2019- No Vaginal 30mL [place] (MARCAINE) 09-09 pain [facility] 0.25 % (2.5 14:15: 14:04 st mg/mL) 00 :00 injection 30 mL sodium 2019-2019- No Vaginal 25meq [place] bicarbonate 09-09 pain Methodi 8.4 % (1 14:15: 14:05 st mEq/mL) 00 :00 injection 25 mEq bupivacaine 2019- No Bladder 30mL [place] (PF) 09-03 pain [facility] (MARCAINE) 15:30: 15:23 st 0.25 % (2.5 00 :00 mg/mL) solution 30 mL HEParin 2019- No Bladder 2100U [place] (porcine) 09-03 pain Methodi injection 15:30: 15:24 st 2,100 Units 00 :00 sodium 2019-2019- No Bladder 30meq [place] bicarbonate 09-03 pain Methodi 8.4 % (1 15:30: 15:25 st mEq/mL) 00 :00 injection 30 mEq gabapentin No 100mg Q.32187001 Take 1 Ronnell (NEURONTIN) 09-03 [id number] capsule Methodi 100 mg 00:00: 00:00 3D ([address] capsule 00 :00 total) by mouth 3 (three) times a day. Can also take as needed for pain alkalinized 2019- No Interstitia 35mL [place] bupivacaine 08-27-17 l cystitis M ethodi and heparin 15:00: 17:21 st bladder 00 :00 installatio n nystatin-tr 2019- No Vaginal Q.25D Apply [place] iamcinolone 08-2728 pain topically Me thodi (MYCOLOG 00:00: 00:00 4 (four) st II) 00 :00 times a 100,000-0.1 day. To unit/g-% outer cream vagina hydrOXYzine No Interstitia 10mg QD Take 1 Reynaga (ATARAX) 10 08-27 l cystitis tablet (10 Methodi MG tablet 00:00: 00:00 mg total) st 00 :00 by mouth nightly. nitrofurant 2019- No 100mg Q.5D Take 1 Rene taylor oin, 08-23 capsule Methodi macrocrysta 00:00: 23:59 ([address] l-monohydra 00 :00 total) by te, mouth 2 (MACROBID) (two) 100 MG times a capsule day for 5 days. methen-m.bl 2019- No 1{capsu Q.25D Take 1 Ronnell ue-s.phos-p 02-22 le} capsule by Carlos Enrique sullivanally hsal-hyo 00:00: 00:[address] (URIBEL) 00 :00 (four) 118-10-40.8 times a -36 mg day. capsule nystatin-tr 2019- No Q.25D Apply Patsy ston iamcinolone 02-22 topically Me thodi (MYCOLOG 00:00: 00:00 4 (four) st II) 00 :00 times a 100,000-0.1 day. unit/g-% cream nitrofurant 2019- No Take 100 [place] oin, 02-22 09-19 mg twice Methodi macrocrysta 00:00: 23:[address] l-monohydra 00 :00 7 days and te, then (MACROBID) continue 100 MG to take capsule 100 mg once daily afterward. loratadine Yes 10mg QD Take 10 mg [place] (CLARITIN) 06 by mouth Metho di 10 mg 00:00: daily. st tablet 00 Vital Signs Vital Name Observation Time Observation Value Comments Source Systolic blood 2019-11-22 11:41:00 125 mm[Hg] [facility] pressure Diastolic blood 2019-11-22 11:41:00 84 mm[Hg] Sheldon Haider pressure Heart rate 2019-11-22 11:41:00 103 /min Ronnell Haider Body temperature 2019-11-22 11:41:00 36.89 Lorenza [place] Body height 2019-11-22 11:41:00 165.1 cm Ronnell Haider Body weight 2019-11-22 11:41:00 99.791 kg Ronnell Haider BMI 2019-11-22 11:41:00 36.61 kg/m2 Ronnell Haider Procedures Procedure Date / Time Performed Performing Clinician Sour e POC URINALYSIS DIPSTICK 2019-11-22 12:18:00 Silvina Vallecillo i MEASURE POST VOID 2019-11-22 00:00:00 Silvina Vallecillo RESIDUAL Arik AST (SGOT) 2019-11-06 11:41:00 Silvina Vallecillo ALT (SGPT) 2019-11-06 11:41:00 Silvina Vallecillo POC URINALYSIS DIPSTICK 2019-11-06 11:41:00 Silvina Vallecillo i MEASURE POST VOID 2019-11-06 11:30:00 Silvina Vallecillo RESIDUAL Arik POC URINALYSIS DIPSTICK 2019-10-30 13:57:00 Carina Forrester MEASURE POST VOID 2019-10-30 13:15:00 Carina Forrester RESIDUAL FUNGUS CULTURE 2019-10-14 00:00:00 Silvina Vallecillo YEAST SCREEN CULTURE 2019-10-02 14:28:00 Silvina Vallecillo SPECIMEN STATUS REPORT 2019-10-02 14:28:00 Silvina Vallecillo NUSWAB VAGINITIS (VG) 2019-10-02 14:28:00 Silvina Vallecillo NUGONZALEZAB VAGINITIS (VG) 2019-09-10 14:45:00 Silvina Vallecillo POC URINALYSIS DIPSTICK 2019-09-10 13:21:00 Silvina Vallecillo i POC URINALYSIS DIPSTICK 2019-09-03 14:36:00 Silvina Vallecillo i URINE CULTURE 2019-08-23 16:36:00 Silvina Vallecillo Plan of Care Planned Activity Planned Date Details Comments Source Future Scheduled 2020-04-10 INFLUENZA VACCINE [place] [facility] Test 00:00:00 [code = INFLUENZA VACCINE] Future Scheduled 1999 Screening for [facility] thodist Test 00:00:00 malignant neoplasm of cervix (procedure) [code = 986065072] Future Scheduled 1988-02-06 DIABETIC FOOT EXAM [place] [facility] Test 00:00:00 [code = DIABETIC FOOT EXAM] Future Scheduled 1988-02-06 URINE MICROALBUMIN [place] [facility] Test 00:00:00 [code = URINE MICROALBUMIN] Future Scheduled 1978 DIABETIC RETINAL EYE Patsy ston [facility] Test 00:00:00 EXAM [code = DIABETIC RETINAL EYE EXAM] Encounters Start End Encounter Admission Attending Care Care Encounter Source Date/Time Date/Time Type Type Clinicians Facility Department ID 2020-03-15 2020-03-15 [id number] 17:29:00 20:07:00 [place] [id number] [place] [id number] [place] [id number] 2019-11-22 2019-11-22 [facility] [id number] [place] 00:00:00 00:00:00 SILVINA 303 [place] 2019-11-06 2019-11-06 [id number] [place] 00:00:00 00:00:00 SILVINA 632 [place] 2019-11-01 2019-11-01 [id number] [place] 00:00:00 00:00:00 SILVINA 554 Meth[place] di 2019-10-30 2019-10-30 Outpatient ANGELIA, [facility] [id number] [place] 00:00:00 00:00:00 CARINA 714 Method i 2019-10-18 2019-10-18 Outpatient ERNST, [facility] [id number] [place] 00:00:00 00:00:00 SILVINA 629 [place] 2019-10-02 2019-10-02 [facility] [id number] [place] 00:00:00 00:00:00 SILVINA 105 [place] 2019-10-01 2019-10-01 [facility] [id number] [place] 00:00:00 00:00:00 SILVINA 439 [place] 2019-09-19 2019-09-19 [facility] [id number] [place] 00:00:00 00:00:00 SILVINA 116 [place] 2019-09-11 2019-09-11 [facility] [id number] 10:32:33 11:39:38 Visit Raf Banuelos [id number] [place] [id number] [facility] [id number] [facility] 220 [facility] 2019-09-10 2019-09-10 Outpatient ANGELIA [facility] [id number] [place] 00:00:00 00:00:00 CARINA [address] 2019-09-10 2019-09-10 Outpatient ERNST [facility] [id number] [place] 00:00:00 00:00:00 SILVINA [address] 2019-09-10 2019-09-10 Outpatient ERNST [facility] [id number] [place] 00:00:00 00:00:00 SILVINA [address] Results Test Description Test Time Test Comments Results Result [facility] e Comments - XR ANKLE 3 + V 2020-02-14 Patient Name: RT 07:19:00 Marge Franco Unit No: [id number] EXAMS: CPT CODE: [id number] XR ANKLE 3 + V RT [address]56 Right ankle 3 views COMMENT: There is no evidence for fracture. There is no evidence for widening of the ankle mortise. There is no evidence for a joint effusion or loose body. A small plantar calcaneal spur is noted. Right foot 2 views COMMENT: There is no evidence for fracture or subluxation. No focal bony lesions are seen. at 0719 Reported and signed by: Prasad Marina MD CC: Barry Hodge DO Technologist: SAMANTHA MORALES, (R) Transcribed D/ (0719) [facility]: Marge [facility] [address] [facility] PHYS: Barry Cardenas DO : 1980 AGE: 40 SEX: F [place], [place] [address] LOC: TEOFILO PHONE #: [phone] EXAM DATE: 02/13/2020 STATUS: DEP ER FAX #: [phone] RAD #: D/C DT PAGE 1 Signed Report Patient Name: Marge Franco Unit No: [id number] EXAMS: CPT CODE: [id number] XR ANKLE 3 + V RT [address]2002 <Continued> Orig Print D/T: S: 02/14/2020 (721) [facility] NAME: Marge Franco [address] [facility] PHYS: NNEKAJEANNINE Miky WaldropBarry moise DO : 1980 AGE: 40 SEX: F [place] [id number] LOC: TEOFILO PHONE #: [phone] EXAM DATE: 02/13/2020 STATUS: DEP ER FAX #: [phone] RAD #: D/C DT PAGE 2 Signed Report - XR FOOT 2 VIEWS 2020-02-14 Patient Name: RT 07:19:00 Marge Franco Unit No: [id number] EXAMS: CPT CODE: [id number] XR FO[place] [address] [place] [address] Right ankle 3 views COMMENT: There is no evidence for fracture. There is no evidence for widening of the ankle mortise. There is no evidence for a joint effusion or loose body. A small plantar calcaneal spur is noted. Right foot 2 views COMMENT: There is no evidence for fracture or subluxation. No focal bony lesions are seen. at 0719 Reported and signed by: Prasad Marina MD CC: Barry Hodge DO Technologist: SAMANTHA MORALES, RT(R) Transcribed D/ (718) tSCARJCL [facility] NAME: Marge Franco [address] [facility] PHYS: NNEKAJEANNINE Miky WaldropBarry moise DO : 1980 AGE: 40 SEX: F [place], [place] [address] LOC: TEOFILO PHONE #: [phone] EXAM DATE: 02/13/2020 STATUS: DEP ER FAX #: [phone] RAD #: D/C DT PAGE 1 Signed Report Patient Name: Marge Franco Unit No: [id number] EXAMS: CPT CODE: [id number] XR FOOT [address] [place] [address] <Continued> Orig Print D/T: S: 02/14/2020 (721) [facility] NAME: Marge Franco [address] [facility] [address] PHYS: Barry Cardenas DO : 1980 AGE: 40 SEX: F [place], [place] [address] LOC: TEOFILO PHONE #: [phone] EXAM DATE: 02/13/2020 STATUS: DEP ER FAX #: [phone] RAD #: D/C DT PAGE 2 Signed Report GLUBED 2020-01-16 11:17:00 Test Item Value Reference Range Interpretation Comme nts GLUBED (test code = GLUBED) 119 mg/dL 60-125 N [id number] 08:15:00 Test Item Value Reference Range Interpretation Comments GLUBED (test code = GLUBED) 117 mg/dL 60-125 N Novel Coronavirus 2019 [id number] 17:12:00 Test Item Value Reference Range Interpretation Comments Novel Coronavirus 2019 Inhouse (test Negative Negative code = COVNONPUI) Novel Coronavirus 2019 [id number] 17:12:00 Test Item Value Reference Range Interpretation Comments Novel Coronavirus 2019 Inhouse (test Negative Negative code = COVNONPUI) CBC W/AUTO [id number] 20:19:00 Test Item Value Reference Range Interpretation Comments WHITE BLOOD CELL (test code = WBC) 7.9 K/mm3 5.8-11.0 N RED BLOOD CELL (test code = RBC) 4.81 M/mm3 4.2-5.4 N HEMOGLOBIN (test code = HGB) 13.4 g/dL 12-16 N HEMATOCRIT (test code = HCT) 40.1 % 37-47 N MEAN CELL VOLUME (test code = MCV) 83 fL 80-98 N MEAN CELL HGB (test code = MCH) 27.9 pg 27-34 N MEAN CELL HGB CONCENTRATION (test 33.4 g/dL 30.8-34.1 N code = MCHC) RED CELL DISTRIBUTION WIDTH (test 13.7 % 11-16 N code = RDW) PLT (test code = PLT) 251 K/mm3 130-400 N MEAN PLATELET VOLUME (test code = 9.8 fL 8.9-12.1 N MPV) NEUTROPHIL % (test code = NT%) 49.9 % 45-70 N LYMPHOCYTE % (test code = LY%) 38.9 % 20-40 N MONOCYTE % (test code = MO%) 7.1 % 3-10 N EOSINOPHIL % (test code = EO%) 2.5 % 1-5 N BASOPHIL % (test code = BA%) 1.0 % 0.0-1.1 N NEUTROPHIL # (test code = NT#) 3.96 K/mm3 2.00-7.50 N LYMPHOCYTE # (test code = LY#) 3.09 K/mm3 1.50-4.00 N MONOCYTE # (test code = MO#) 0.56 K/mm3 0.2-0.8 N EOSINOPHIL # (test code = EO#) 0.20 K/mm3 0.04-0.4 N BASOPHIL # (test code = BA#) 0.08 K/mm3 0.02-0.10 N MANUAL DIFF REQUIRED (test code = NO MANUAL DIFF MDIFF) NUCLEATED RED BLOOD CELL (test 0 % 0-0 N code = NRBC) BASIC METABOLIC [id number] 19:54:00 Test Item Value Reference Range Interpretation Comments SODIUM (test code = 137 mmol/L 136-145 N NA) POTASSIUM (test code = 3.9 mmol/L 3.5-5.1 N K) CHLORIDE (test code = 98.0 mmol/L 98-107 N CL) CARBON DIOXIDE (test 24.8 mmol/L 21-32 N code = CO2) GLUCOSE (test code = 205 mg/dL 70-110 H GLU) BLOOD UREA NITROGEN 20 mg/dL 7-18 H (test code = BUN) GLOMERULAR FILTRATION 75.8 >60 Unit o f measure: RATE (test code = GFR) mL/mi n/1.73 h0Iguhyqcaz Range:Healthy A dults >90 mL/min/1.73 m2 For Chronic Kidney Disease: St age II Mild Dec rease in GFR 6 0-90 Stage III Moderate Decrea se in GFR 30-59 Stage IV Se aleah Decrease in GFR 15-29 Stage V Kidney Failur e <15 CREATININE (test code 0.83 mg/dL 0.55-1.30 N = CREAT) CALCIUM (test code = 9.6 mg/dL 8.2-10.1 N CA) - CT LOWER EXTRM W/O C [id number] 14:57:00 Patient Name: MARGE FRANCO Unit No: [id number] EXAMS: CPT CODE: [id number] CT L[place]TRM W/[place] [address] [place] SCAN RIGHT ANKLE WITH RECONSTRUCTION DIAGNOSIS: 1.There the posterior tibial tendon is thickened and indistinct from the level of the tip of themedial malleolus to its distal insertion into the medial navicular. The distalmost balaji insertional posterior tibial tendon is obscured by extensive soft tissue inflammation. This spectrum of findings is compatible with at least a high-grade partial-thickness tear and more likely a full-thickness tear. Small mature calcifications are present within the region of the distal tendon adjacent to the medial cuneiform possibly representing heterotopic ossificationrelated to chronic inflammation. 2. Calcaneal enthesophytes are projects into the distal insertion of the Achilles tendon. Calcaneal bone spur projects into the proximal plantar fascia. TECHNIQUE: Volumetric CT data of the right ankle was obtained without use of intravenous contrast. Images were then viewed in the axial, coronal and sagittal planes. CT radiation dose optimization is achieved for this examination by the use of a CT protocol in accordance with ACR practice standards and adherence to presentation manager's recommendations. INDICATION: RIGHT ANKLE PAIN COMPARISON: None. COMMENT: Findings are as described above. at 1457 Reported and signed by: America Schuler MD CC: Elbert Wilson MD Technologist: Shaan Nassar,RT(R) CTDI: DLP: Trnscrpt: 01/04/2020 (5837) t.SDR.GVG [facility] NAME: MARGE FRANCO [address] [facility] PHYS: Elbert Rodrigues MD : 1980 AGE: 39 SEX: F [place] [address] LOC: Y.RAD PHONE #: [phone] EXAM DATE: 01/04/2020 STATUS: REG CLI FAX #: [phone] RAD #: D/C DT PAGE 1 Signed Report Patient Name: MARGE FRANCO Unit No: [id number] EXAMS: CPT CODE: [id number] CT LOWER [place]TRM W/[place] [address] <Continued> Orig Print D/T: S: 01/04/2020 (1500) [facility] NAME: BRETT FRANCO [address] [facility] [address] PHYS: Elbert Rodrigues MD : 1980 AGE: 39 SEX: F [place], [place] [address] LOC: Y.RAD PHONE #: [phone] EXAM DATE: 01/04/2020 STATUS: REG CLI FAX #: [phone] RAD #: D/C DT PAGE 2 Signed ReportMeasure post void [id number] 12:19:00 Test Item Value Reference Range Interpretation Comments PVR volume (test code = 5766) 18 [place] [facility] urinalysis [id number] 12:18:00 Test Item Value Reference Range Interpretation Comments Color urine, POC (test code = [place] 2742389) Clarity urine, POC (test code Cloudy = 3361937) Glucose urine, POC (test code 2+ Negative A = 3242135) Bilirubin urine, POC (test Negative Negative code = 8507096) Ketones urine, POC (test code Negative Negative = 9596727) Specific gravity urine, POC 1.010 1.005-1.030 (test code = 9385112) Blood urine, POC (test code = Negative Negative 8289514) pH urine, POC (test code = 5.0 5.0, 5.5, 6.0, 6.5, 6827426) 7.0, 7.5, 8.0, 8.5 Protein urine, POC (test code Negative Negative = 7653172) Urobilinogen urine, POC (test 2.0 <2.0 A code = 5178531) Nitrite urine, POC (test code Negative Negative = 7270047) Leukocyte esterase urine, POC Negative Negative (test code = 8694671) Lab Interpretation (test code Abnormal = 39958-4) [place] MethodistAST (SGOT)2019-11-07 07:07:00 Test Item Value Reference Range Interpretation Comments AST (test code = 30 0- 40 IU/L 1920-8) CALVIN (test code = Performed at: CALVIN) [facility] [id number] Director: Jett Blunt MD, Phone: [phone] [place] MethodistALT (SGPT)2019-11-07 07:07:00 Test Item Value Reference Range Interpretation Comments ALT (test code = 1742-6) 60 0- 32 IU/L H CALVIN (test code = CALVIN) Performed at: - [facility] [id number] Director: Jett Blunt MD, Phone: [phone] Lab Interpretation (test Abnormal code = 17827-3) [place] MethodistNuSwab Vaginitis (VG)2019-10-11 16:09:00 Test Item Value Reference Interpretation Comments Range Atopobium Low - 0 Score vaginae (test code = 41472-6) BVAB 2 (test Low - 0 Score code = 97338-8) Megasphaera Low - 0 Score Calculate total score by species (test adding the 3 i ndividual code = 40741-1) bacterialvag inosis (BV) marker scores t ogether. Total score yanely nterpreted as follows:Tota l score 0-1: Indicates the absence of BV.Total sco re 2: Indeterminate f or BV. Additional clin ical data s hould be evaluated to es tablish a diagnosis.Total score 3-6: Indicates the p resence of BV.This test wa s developed and its perform ance characteristics determined by [facility]. It has not been cleared or approvedby the Food and Dr [place] Administration. The FDA has determinedt hat such clearance or ap proval is not necessary. Fiona Negative Negative albicans, SOHAN (test code = 21354-4) C. glabrata, DNA Positive Negative A Published d hardik demonstrate (test code = that up to 65% of Fiona 39837-6) glabrataidentif ied in cases of vagina l candidiasis hav e decreasedsuscep tibility to fluconazole. Trichomonas vag Negative Negative by SOHAN (test code = 96834-5) CALVIN (test code = Test(s) CALVIN) 313245-Wlglmfa albicans, SOHAN; 494771-Kmengvv glabrata, NAAwas developed and its performance characteristics determinedby [facility]. It has not been cleared or approved by the Foodand Drug Administration.Pe rformed at: - [facility] [address] [place], [place] [id number] Director: John Adame MD, Phone: [phone] Lab Abnormal Interpretation (test code = 58640-2) [facility]Specimen Status [id number] 13:08:00 Test Item Value Reference Range Interpretation Comments Specimen COMMENT Written Status Report AuthorizationW bernardino (test code = AuthorizationWr ittlauren 3285) Authorization Received.Author ization received from Vida SAUCEDO [id number] d by Jolyl SIMPSON (test code Performed at: = CALVIN) [facility] [place], [place] [id number] Director: Jett Blunt MD, Phone: [phone] [facility] MethodistYeast screen bgosmul6575-85-28 16:08:00Yeast screen culture isolateCandida glabrataModerate growth LABCORPPerformed at: [facility] [place], [place] [id number] Director: John Adame MD, Phone: [phone] MethodistUrine [id number] 21:26:00 Test Item Value Reference Range Interpretation Comments Urine culture SEE NOTE CULTURE, URI NE, (test code = ROUTINE Angel ro 630-4) Number: [id number] Test Status: Final Specimen Source: URINE Specimen Qualit y: Adequate Resul t: Multi ple organisms prese nt, each less than 10,000 CFU/mL. These organisms , commonly found on external and internal genitalia, are considered to be colonizers. No further testing performed. RAC (test code = Performing RAC) Organization Information: Site ID: [id number] Name[facility] Address: [address] [place] [id number] Director: Ad Haider
--- OUTSIDE RECORDS SUMMARY | 2020-03-23 15:38 | XMS REPORT | Summary of Care ---
:1980 Author Organization [facility] - [facility] Address [address] [place] [address] Care Team Providers Name Role Phone Huang Woodson [facility], [facility] Primary Care P rovider Reason for Referral MRI/CAT Scan (STAT) Status Reason Specialty Diagnoses / Referred By Referred To Procedures Contact Contact New Request Diagnostic Diagnoses Flank pain Left lower quadrant abdominal pain Inesent, Radiology Procedures CT ABDOMEN PELVIS W CONTRAST Shinta, GLASS SANDER [address] [facility] [id number] [place] [address] Reason for Visit Reason Comments PAIN WITH URINATION Auth/Cert Status Reason Specialty Diagnoses / Referred By Referred To Procedures Contact Contact Emergency Medicine Ad[facility] Em ergency Dept [address] [place] [address] Fax: Encounter Details Date Type Department Care Team Description 03/15/2020 Emergency ADC-Emergency Inesent, Shinta, Flank pain (Primary Dx); Department GLASS SANDER Left lower quadrant abdominal pain; [address] [place] [address] Dr arriaza [address] Hyperglycemia; [place] [address] [id number] Dysuria; [phone] [place], [place] Uncontrolled t ype 2 diabetes mellitus with hyperglycemia [id number] Allergies No Known Allergiesdocumented as of this encounter (statuses as of 03/15/2020) Medications Medication Sig Dispensed Refills Start Date End Date Status Blood-Glucose Meter 1 Each 0 12/13/2012 Active (BLOOD GLUCOSE MONITORING) KitIndications: Diabetes mellitus, antepartum(648.03) Lancets & Blood Glucose 1 Bottle 3 06/23/2013 Active Strips (ONE TOUCH COMBO) CmpkIndications: Diabetes mellitus, antepartum(648.03) metFORMIN (GLUCOPHAGE) Take 1 Tab by 60 Tab 10 07/24/2013 Active 500 mg tablet mouth 2 (two) times daily with meals. Additional Information Patient taking differently: 1,000 mg Oral BID MEALS, Reported on 12/30/2015 2:09 PM PNV cmb#[id number]-ferrous Take by mouth. 0 Active fumarate-FA ( FORMULA) 28 mg iron- 800 mcg Tab simvastatin (ZOCOR) 20 mg Take 20 mg by mouth 0 03/2016 Active tablet daily. hydrOXYzine 10 mg Take 1 tablet by 20 tablet 0 03/23/2019 Active tabletIndications: mouth every 6 (six) Possible exposure to STD, hours. Bacterial vaginitis traMADol (ULTRAM) 50 mg Take 1 tablet by 20 tablet 0 9 Active tabletIndications: Lower mouth every 6 (six) abdominal pain, Acute hours as needed for cystitis without hematuria Pain (scale 7-10). ondansetron (ZOFRAN) 4 mg Take 1 tablet by 12 tablet 0 019 Active tabletIndications: Lower mouth every 8 abdominal pain, Acute (eight) hours as cystitis without hematuria needed for Nausea and Vomiting (N/V). gabapentin 100 mg Take 1 capsule by 30 capsule 0 08/23/2019 Active capsuleIndications: Pain mouth 3 (three) pelvic times daily. OZEMPIC 0.25 mg or 0.5 0 08/29/2019 Active mg(2 mg/1.5 mL) PnIj spironolactone 100 mg 0 07/30/2019 Active tablet lisinopril 5 mg tablet 0 08/29/2019 Active TRESIBA FLEXTOUCH U-100 inject 15-25 Units 9 mL 4 020 Active 100 unit/mL (3 mL) under the skin InPnIndications: every morning. Uncontrolled type 2 diabetes mellitus with hyperglycemia FREESTYLE BRENDA 14 DAY 1 Each every 14 6 Kit 1 09/11/2019 Active SENSOR KitIndications: (fourteen) days. Uncontrolled type 2 diabetes mellitus with hyperglycemia FREESTYLE BRENDA 14 DAY 1 Each daily. 1 Each 0 09/11/2019 Active READER MiscIndications: Uncontrolled type 2 diabetes mellitus with hyperglycemia fluconazole 150 mg tablet Take 150 mg by 0 0 04/04/2020 Active mouth. phenazopyridine 200 mg Take 1 tablet by 6 tablet 0 03/15/2020 03/17/2020 Active tabletIndications: Dysuria mouth 3 (three) times daily for 2 days. documented as of this encounter (statuses as of 03/15/2020) Active Problems Problem Noted Date Pain at surgical incision 08/09/2013 Mood swings 08/09/2013 Gestational hypertension 06/30/2013 Ventral hernia 06/30/2013 paroxsymal supraventricular tachycardia s/p ablation 04/17/2013 Other abnormalities in shape or position of gravid togiak michael and of 02/07/2013 neighboring structures, antepartum Biliary colic 02/07/2013 Generalized anxiety disorder 01/25/2013 Not immune to rubella 12/14/2012 Overview: Immunize ICD10 Diagnosis Term Reinforcement Maker Utility Immune to varicella 12/14/2012 Morbid obesity 09/09/2012 DM (diabetes mellitus), type 2 11/13/2008 Overview: Insulin control since 06/18 documented as of this encounter (statuses as of 03/15/2020) Resolved Problems Problem Noted Date Resolved Date Supervision of high-risk 06/30/201308/09 Decreased movement during , antepartum 201207/16/2013 Overview: ICD10 Diagnosis Term Reinforcement Maker Utility Chest pain 04/16/2013 07/16/2013 AMA (advanced maternal age) multigravida 35+ 03/01/2013 08/09/2013 Anemia of mother in , antepartum 03/01/2013 08/09/2013 Abnormal findings on screening 02/13/2013 08/09/2013 Overview: NT + DS 1:163 with accurate dating. Gene tics and level II sono ordered for Victoria Abdominal pain, right upper quadrant 02/07/201312/2013 Nausea & vomiting 02/07/2013 07/16/2013 Pain of round ligament complicating , antepartum 07/16/2013 diabetes mellitus 11/13/2008 11/13/2008 Overview: ICD10 Diagnosis Term Reinforcement Maker Utility Previous delivery affecting , antepartum 0 11/12/2008 08/09/2013 Overview: C/S x 2 Aug 10, 2013 Diabetes mellitus during , antepartum 10/24/2008 11/13/2008 Overview: ICD10 Diagnosis Term Reinforcement Maker Utility documented as of this encounter (statuses as of 03/15/2020) Immunizations Name Administration Dates Next Due Influenza Virus Vaccine 03/19/2013 MMR 07/25/2013 Rubella 04/17/2008 TDAP 05/21/2013 Td 07/11/2004 documented as of this encounter Social History Tobacco Use Types Packs/Day Years Used Date Never Smoker Smokeless Tobacco: Never Used Alcohol Use Drinks/Week oz/Week Comments Yes ocassionally Sex Assigned at Date Recorded Not on file COVID-19 Exposure Response Date Recorded In the last month, have you been in contact with No / Unsure 03/15/2020 5:27 PM CDT someone who was confirmed or suspected to have Coronavirus / COVID-19? documented as of this encounter Last Filed Vital Signs Vital Sign Reading Time Taken Comments Blood Pressure 108/71 03/15/2020 7:00 PM CDT Pulse 103 03/15/2020 7:00 PM CDT Temperature 37.6 C (99.7 F) 03/15/2020 5:25 PM CDT Respiratory Rate 18 03/15/2020 7:00 PM CDT Oxygen Saturation 97% 03/15/2020 7:00 PM CDT Inhaled Oxygen Concentration - - Weight 104.8 kg (231 lb) 03/15/2020 5:25 PM CDT Height 162.6 cm (5' 4") 03/15/2020 5:25 PM CDT Body Mass Index 39.65 03/15/2020 5:25 PM CDT documented in this encounter Discharge Instructions Ever Segovia FNP - 03/15/2020DIAGNOSIS 1. Dysuria 2. Diabetes mellitus with hyperglycemia 2. Left sided abdominal pain NO LIFE-THREATENING FINDINGS ON TODAY'S EXAM. PROCEDURES IN THE ER TODAY: CT abdomen and pelvis CBC,CMP, urinalysis Wet prep test MEDICATIONS ADMINISTERED IN THE ER TODAY: Morphine Zofran IV normal saline YOUR PRESCRIPTIONS AND [id number] MEDICATION RECOMMENDATIONS: Pyridium SPECIAL CARE INSTRUCTIONS: Follow up with urogynecology specialist FOLLOW-UP RECOMMENDATIONS: RECOMMEND FOLLOW-UP WITH A PRIMARY CARE PROVIDER and Urogynecology SPECIALIST IN 2-5 DAYS, ESPECIALLY IF NO IMPROVEMENT IN SYMPTOMS. TO FOLLOW-UP WITHIN THE [facility], TRY THESE OPTIONS (CLINIC APPOINTMENTS AVAILABLE ON JMOK-SD-HAVQ BASIS): 1. SCHEDULE AN APPOINTMENT ONLINE AT WWW.[facility] 2. OR CALL THE [facility] ACCESS CENTER AT OR 3. OR CALL YOUR [facility] PHYSICIAN'S OFFICE DIRECTLY IF YOU ARE ALREADY AN ESTABLISHED [facility] PATIENT. OR, YOU MAY FOLLOW-UP WITH A PROVIDER OF YOUR CHOICE, SUCH : 1. A PHYSICIAN OF YOUR CHOICE 2. [facility], . LOCATIONS IN [facility] 3. [facility], [address], [place]; [phone] RETURN TO ER FOR WORSENING OF SYMPTOMS. Fever, worsening pain or any other new or worsening symptoms AttachmentsThe following attachments cannot be sent through Care Everywhere. Dysuria, Uncertain Cause (Adult) ([place])Hyperglycemia (High Blood Sugar) ([place])Abdominal Pain, Adult ([place])documented in this encounter ED Notes Belinda Milligan RN - 03/15/2020 5:21 PM CDTCC: Pt presents to ER with complaints of painful urination x 10 days, frequency, urgency, Left flankpain, and pelvic pain. PMHx: IDDM, high cholesterol PSH: Right foot sx, tonsillectomy, Cholie, bladder stimulator, x3 MEDS: See hx LMP: 01/30/20 Tetanus: Not UTD Awake, alert, oriented, resp reg unlabored, skin warm, color appropriate for race, moves all ext without difficulty, amb with boot, patient had sx on right foot. Appears in no distress documented in this encounter Miscellaneous Notes ED Nurse Note - Beatriz Tracy RN - 03/15/2020 8:05 PM CDTPt given printed and verbal discharge instructions regarding dysuria, DM with hyperglycemia, left meri ed abdominal pain, encouraged hydration, Prescriptions provided: pyridium Pt verbalized understanding of instructions, pt awake alert oriented, resp reg unlabored, skin w/d, color appropriate for race, moves all ext well,pt encouraged to follow up with pcp and urogynecology Advised to seek medical attention for new/prolonged/worsening of symptoms, Symptoms improved No adverse reaction to meds given in ER noted upon discharge PIV d'cd, dressing to site, catheter in tact. Awake, alert oriented, resp reg unlabored, skin w/d, pt leaving amb with steady gait, in no apparent distress, D Nurse Note - Brooklynn Pritchett RN - 03/15/2020 7:12 PM CDTPatient lying quietly, no distress noted. States feeling much better after medication. D Nurse Note - Brooklynn Pritchett RN - 03/15/2020 6:[address] taken to CT per stretcher. documented in this encounter Plan of Treatment Name Type Priority Associated Diagnoses Date/Ti me URINE CULTURE LAB STAT Dysuria 03/15/2020 7: 32 PM CDT [facility] OR [facility] ONLY - WET LAB STAT Dysuria 7:48 PM CDT PREP Name Type Priority Associated Diagnoses Order S chedule URINE CULTURE LAB Routine Dysuria ONCE for 1 Occ urrences starting 2019 until 03/15/2020 [facility] OR [facility] ONLY - LAB Routine Dysuria ONCE f or 1 Occurrences WET PREP starting 2019 until 03/15/2020 Health Maintenance Due Date Last Done Comments EYE EXAM 02/06/1988 Depression Screening 1990 PAP SMEAR 02/28/2015 02/29/2012, 12/23/2008, 04/16/2008, Additional history exists Breast Cancer Screening 2018 (MAMMOGRAM) HgA1C 02/21/2020 08/23/2019, 03/30/2016, 05/21/2013, Additional history exists INFLUENZA VACCINE (#1) 2020 03/19/2013 CREATININE (SERUM) 08/23/2020 08/23/2019, 07/07/2019, 03/23/2019, Additional history exists LDL-C 08/28/2020 08/28/2019, 12/20/2011 FOOT EXAM 09/10/2020 09/11/2019, 09/11/2019 URINE MICROALBUMIN 09/10/2020 12/20/2011 Postponed fro m 12/19/2012 (Flower ent Ill Today) DTaP,Tdap,and Td Vaccines 05/21/2023 05/21/2013, 07/11/2004 (2 - Td) PNEUMOCOCCAL 0-64 YEARS Aged Out No longe r eligible COMBINED SERIES based on patient 's age to complete this topic documented as of this encounter Procedures Procedure Name Priority Date/Time Associated Diagnosis Comme nts POCT GLUCOSE(AGE MALAIKA 03/15/2020 7:35 Dysuria Results for this >30DAYS) PM CDT procedure are i n the results section. POCT GLUCOSE Routine 03/15/2020 7:34 Results for this (AUTOMATED) PM CDT procedure are i n the results section. ACUTE CARE VENOUS STAT 03/15/2020 7:03 Hyperglycemia Resul ts for this BLOOD GAS PM CDT procedure are i n the results section. CT ABDOMEN PELVIS W STAT 03/15/2020 6:45 Flank pain Results for this CONTRAST PM CDT Left lower quadrant procedur e are in abdominal pain the results section. POCT TEST MALAIKA 03/15/2020 5:55 Flank pain Resu lts for this PM CDT procedure are i n the results section. URINALYSIS STAT 03/15/2020 5:55 Flank pain Results for this PM CDT procedure are i n the results section. CBC WITH DIFF STAT 03/15/2020 5:55 Flank pain Results fo r this PM CDT procedure are i n the results section. BASIC METABOLIC STAT 03/15/2020 5:55 Flank pain Results for this PANEL (NA, K, CL, PM CDT procedure are in CO2, GLUCOSE, BUN, the resul ts CREATININE, CA) section. HEPATIC FUNCTION STAT 03/15/2020 5:55 Flank pain Results for this PANEL (04784) PM CDT procedure are in (ALB,T.PRO,BILI the results T,BU/BC,ALT,AST,ALK section. PHOS) LIPASE STAT 03/15/2020 5:55 Flank pain Results for this PM CDT procedure are i n the results section. CONSENT/REFUSAL FOR Routine 03/15/2020 5:11 DIAGNOSIS AND PM CDT TREATMENT documented in this encounter Results POCT GLUCOSE(AGE >30DAYS) (03/15/2020 7:35 PM CDT) Pathologist Sig [facility] POCT Glu (age>30days) 307 (A) 70 - 110 mg/dL Specimen Blood - VENOUS POCT GLUCOSE (AUTOMATED) (03/15/2020 7:34 PM CDT) [facility] POCT GLU 307 (H) 70 - 110 mg/dL [facility] Specimen Blood Performing Organization Address City/[facility] Centerb[facility] Phone Number [facility] CLIA: [id number] [place] [address] ACUTE CARE VENOUS BLOOD GAS (03/15/2020 7:03 PM CDT) [facility] PH 7.39 7.32 - 7.42 [facility] PCO2 [place]AS 35 (L) 41 - 51 mmHg [facility] PO2 [place] 42 (H) 25 - 40 mmHg [facility] HCO3 [place] 21 (L) 24 - 28 mEq/L [facility] AC VBE(BEAKER) -3.6 mEq/L [facility] Specimen Blood - VENOUS Performing Organization Address [facility] Centerbcowi Phone Number [facility] CLIA: [id number] [place] [address] [address] ABDOMEN PELVIS W CONTRAST (03/15/2020 6:45 PM CDT) Specimen Impressions Performed At PACS/VR/DOSE No acute abdominopelvic process is ident ified. Hepatomegaly and hepatic steatosis. Cholecystectomy. No nephrolithiasis. Preliminary Report Dictated by Resident: Sascha Cortes MD., have reviewed this study and agree with the above report. Narrative Performed At EXAM: CT ABDOMEN AND PELVIS WITH CONTRAS T PACS/VR/DOSE HISTORY: complaints of painful urination x 10 days, frequency, urgency, Left flank pain, and pelvic pain COMPARISON: CT abdomen and pelvis without contrast , CT AP with 04/23/2016. TECHNIQUE AND FINDINGS: Contiguous axial imaging from the level of the lung bases through the proximal thighs was performed after the administration of intravenous Omnipaque contrast. Coronal and sagittal r econstructions were obtained. Auto mA and/or iterative rec onstruction were used to reduce radiation dose. FINDINGS: LOWER THORAX: Lingular hyperattenuating bands, likely atelectasis/scarring. A small calcified granuloma is seen in t he left lower lobe. No cardiomegaly. LIVER: Diffuse geographic hypoattenuation of the hepat ic parenchyma without architectural distortion suggestive of s teatosis. Hepatomegaly. Normal contour. GALLBLADDER AND BILIARY TREE: No biliary ductal dilati on. cholecystectomy. Multiple surgical clips are noted about the gallbladder fossa. SPLEEN: No splenomegaly. PANCREAS: No ductal dilation or masses. ADRENAL GLANDS: No adrenal nodules. KIDNEYS: No hydronephrosis, stones, or m asses. Lobulated contour of bilateral kidneys. PERITONEUM AND RETROPERITONEUM: No free air or fluid. LYMPH NODES: No lymphadenopathy. GI TRACT: No dilation or wall thickening . The appendix is unremarkable (2:114). PELVIS/BLADDER: Unremarkable. VESSELS: Unremarkable. BONES AND SOFT TISSUES: No suspicious ly tic or sclerotic bony lesions. A medical referral coordinator is seen in the right glut eal soft tissues with its lead traversing the third right sacral foramina and termina ting over the right piriformis muscle (2:134). Procedure Note [facility], Radiant Results Inft User - 2019 7:40 PM CDT EXAM: CT ABDOMEN AND PELVIS WITH CONTRAST HISTORY: complaints of painful urination x 10 days, frequency, urgency, Left flank pain, and pelvic pain COMPARISON: CT abdomen and pelvis withou t contrast 07/07/2019, CT AP with 04/23/2016. TECHNIQUE AND FINDINGS: Contiguous axial imaging from the level of the lung bases through the proximal thighs was pe rformed after the administration of intravenous Omnipaque contrast. Coronal and sagittal reconstructions were obtained. Auto mA and/or iterative jose nstruction were used to reduce radiation dose. FINDINGS: LOWER THORAX: Lingular hyperattenuating bands, likely atelectasis/scarring. A small calcified granuloma is seen in t he left lower lobe. No cardiomegaly. LIVER: Diffuse geographic hypoattenuatio n of the hepatic parenchyma without architectural distortion suggestive of s teatosis. Hepatomegaly. Normal contour. GALLBLADDER AND BILIARY TREE: No biliary ductal dilation. cholecystectomy. Multiple surgical clips are noted about the gallbladder fossa. SPLEEN: No splenomegaly. PANCREAS: No ductal dilation or masses. ADRENAL GLANDS: No adrenal nodules. KIDNEYS: No hydronephrosis, stones, or m asses. Lobulated contour of bilateral kidneys. PERITONEUM AND RETROPERITONEUM: No free air or fluid. LYMPH NODES: No lymphadenopathy. GI TRACT: No dilation or wall thickening . The appendix is unremarkable (2:114). PELVIS/BLADDER: Unremarkable. VESSELS: Unremarkable. BONES AND SOFT TISSUES: No suspicious ly tic or sclerotic bony lesions. A medical referral coordinator is seen in the right glut eal soft tissues with its lead traversing the third right sacral forami na and terminating over the right piriformis muscle (2:134). IMPRESSION No acute abdominopelvic process is ident ified. Hepatomegaly and hepatic steatosis. Cholecystectomy. No nephrolithiasis. Preliminary Report Dictated by Resident: Yared Murphy I, Sascha Hale MD., have reviewed [facility] study and agree with the above report. Performing Organization Address City/[facility]/Zipcode Phone Number PACS/VR/DOSE Lipase Serum (03/15/2020 5:55 PM CDT) Pathologist [facility] LIPASE 217 0 - 220 U/L [facility] Specimen Blood - VENOUS Performing Organization Address City/[facility]/Zipcode Phone Number [facility] CLIA: [id number] [place] [address] Hepatic Function Panel (ALB, T.PRO, BILI T, BU/BC, ALT, AST, ALK PHOS) (03/15/2020 5:55 PM CDT) Pathologist [facility] TOTAL BILI 0.4 0.1 - 1.1 mg/dL [facility] BILI UNCON 0.6 0.1 - 1.1 mg/dL [facility] BILI CONJ 0.0 0.0 - 0.3 mg/dL [facility] T PROTEIN 7.5 6.3 - 8.2 g/dL [facility] ALBUMIN 4.4 3.5 - 5.0 g/dL [facility] ALK PHOS 74 34 - 122 U/L [facility] ALTv 53 (H) 5 - 35 U/L [facility] AST(SGOT) 49 (H) 13 - 40 U/L [facility] Specimen Blood - VENOUS Performing Organization Address City/State/Zipcode Phone Number [facility] CLIA: [id number] [place] [address] Basic Metabolic Panel (NA, K, CL, CO2, GLUCOSE, BUN, CREATININE, CA) (03/15/2020 5:55 PM CDT) [facility] NA 137 135 - 145 [facility] mmol/L [facility] K 4.0 3.5 - 5.0 [facility] mmol/L [facility] CL 99 98 - 108 mmol/L [facility] CO2 TOTAL 21 (L) 23 - 31 mmol/L [facility] AGAP 17 (H) 2 - 16 [facility] BUN 15 7 - 23 mg/dL [facility] GLUCOSE 361 (H) 70 - 110 mg/dL [facility] CREATININE 0.61 0.50 - 1.04 [facility] mg/dL [facility] CALCIUM 9.4 8.6 - 10.6 [facility] mg/dL [facility] eGFR Calculation 107.6 mL/min/1.73m2 [facility] ([facility] LABORATORY [place]) eGFR Calculation 130.4 mL/min/1.73m2 [facility] () [facility] Specimen Blood - VENOUS Narrative Performed At Association of Glomerular Filtration Rate (GFR) [facility] and Staging of Kidney Disease* + + +- + | GFR (mL/min/1.73 m2) | With Kidney Damage | Without Kidney Damage + + +- + | >90 | Stage one | Normal + + +- + | 60-89 | Stage two | Decreased GFR + + +- + | 30-59 | Stage three | Stage three + + +- + | 15-29 | Stage four | Stage four + + +- + | <15 (or dialysis) | Stage five | Stage five + + +- + *Each stage assumes the associated GFR level has been in effect for at least three months. Stages 1 to 5, with or without kidney disease, indicate chronic kidney disease. Notes: Determination of stages one and two (with eGFR >59mL/min/1.73 m2) requires estimation of kidney damage for at least three months as defined by structural or functional abnormalities of the kidney, manifested by either: Pathological abnormalities or Markers of kidney damage (including abnormalities in the composition of the blood or urine or abnormalities in imaging tests). Performing Organization Address City/State/Zipcode Phone Number [facility] CLIA: [id number] [place], [place] [id number] LABORATORY [address] CBC with Differential (03/15/2020 5:55 PM CDT) Pathologist Sig nature WBC 6.81 4.30 - 11.10 [facility] 10*3/L [facility] RBC 4.57 3.93 - 5.25 [facility] 10*6/L [facility] HGB 13.1 11.6 - 15.0 g/dL [facility] HCT 38.2 35.7 - 45.2 % [facility] MCV 83.6 80.6 - 95.5 fL [facility] MCH 28.7 25.9 - 32.8 pg [facility] MCHC 34.3 31.6 - 35.1 g/dL [facility] RDW-SD 41.0 39.0 - 49.9 fL [facility] RDW-CV 13.5 12.0 - 15.5 % [facility] PLT 221 166 - 358 [facility] 10*3/L [facility] MPV 9.6 9.5 - 12.9 fL [facility] NRBC/100 WBC 0.0 0.0 - 10.0 /100 [facility] WBCs [facility] NRBC x10^3 <0.01 10*3/L [facility] GRAN MAT (NEUT) % 45.3 % [facility] IMM GRAN % 0.60 % [facility] LYMPH % 43.0 % [facility] MONO % 7.9 % [facility] EOS % 2.5 % [facility] BASO % 0.7 % [facility] GRAN MAT x10^3(ANC) 3.08 1.88 - 7.09 [facility] 10*3/uL HOSPITAL LABORATORY IMM GRAN x10^3 0.04 0.00 - 0.06 [facility] 10*3/uL HOSPITAL LAB[facility]ORY LYMPH x10^3 2.93 1.32 - 3.29 [facility] 10*3/uL HOSPITAL LAB[facility] MONO x10^3 0.54 0.33 - 0.92 [facility] 10*3/uL HOSPITAL LAB[facility]ATORY EOS x10^3 0.17 0.03 - 0.39 [facility] 10*3/uL HOSPITAL LAB[facility]ATORY BASO x10^3 0.05 0.01 - 0.07 [facility] 10*3/uL [facility] Specimen Blood - VENOUS Performing Organization Address [facility] Centerbcode Phone Number [facility] CLIA: [id number] [place] [address] POCT Test (03/15/2020 5:55 PM CDT) Pathologist Sig nature POCT PREG Negative On board controls acceptable Present with C Line POCT PREG LOT # [id number] POCT PREG TEST DATE 02/07/2021 Specimen Urine - URINE, CLEAN CATCH Urinalysis (03/15/2020 5:55 PM CDT) Pathologist Sig nature APPEARANCE Clear Clear [facility] COLOR Straw (A) Yellow [facility] PH 5.0 4.8 - 8.0 [facility] SP GRAVITY 1.022 1.003 - 1.030 [facility] GLU U QUAL 500 mg/dL (A) Normal [facility] BLOOD Negative Negative [facility] KETONES 5 mg/dL (A) Negative [facility] PROTEIN 30 mg/dL (A) Negative [facility] UROBILIN Normal Normal [facility] BILIRUBIN Negative Negative [facility] NITRITE Negative Negative [facility] LEUK DONTE Negative Negative [facility] RBC/HPF 3 0 - 3 HPF [facility] [facility] WBC/HPF 3 0 - 5 HPF [facility] BACTERIA Few (A) Negative [facility] SQ EPITH 1 HPF [facility] Specimen Urine - URINE, CLEAN CATCH Performing Organization Address [facility]/Zipcode Phone Number [facility] CLIA: [id number] [place] [address] documented in this encounter Visit Diagnoses Diagnosis Flank pain - Primary Abdominal pain, unspecified site Left lower quadrant abdominal pain Hyperglycemia Other abnormal glucose Dysuria Uncontrolled type 2 diabetes mellitus wi th hyperglycemia documented in this encounter Administered Medications Medication Order MAR Action Action Date Dose Rate Site iohexol (OMNIPAQUE 350 BULK-150 Given 03/15/2020 6:40 PM CDT 12 0 mL mL) injection 120 mL 120 mL, Intravenous, ONCE, 1 dose, 03/15/20 at 1900, Routine morpHINE injection 4 mg Given 03/15/2020 6:11 PM CDT 4 mg 4 mg, Slow IV Push, ONCE, 1 dose, 03/15/20 at 1815, STAT NaCl 0.9% (NS) IV infusion 1,000 New Bag 03/15/2020 6:11 PM C DT 1,000 mL 999 mL/hr mL at 999 mL/hr, Intravenous, ONCE, 1 dose, 03/15/20 at 1815, MALAIKA ondansetron (ZOFRAN (PF)) injection 4 mg Given 03/15/2020 6:11 PM CDT 4 mg 4 mg, Slow IV Push, ONCE, 1 dose, 03/15/20 at 1815, MALAIKA documented in this encounter documented as of this encounter
[2020-03-23 17:12] LABS: Absolute Lymphocytes (CBC) 2.4 K/uL (0.7-4.9); Basophils % 1.3 % (0-1.3); Hematocrit 40.6 % (36.0-45.0); RBC Red Blood Cell Count 4.84 M/uL (3.86-4.86)
[2020-03-23] MEDS ORDERED: ONDANSETRON 4 MG/2 ML VIAL ONE (17:14)
[2020-03-23] MEDS ORDERED: NA CHLORIDE 0.9% 1,000 ML ONE (17:14)
[2020-03-23] MEDS ORDERED: MORPHINE 4 MG/ML SYR ONE (17:14)
[2020-03-23 17:32] LABS: ALT/SGPT 64 U/L (12-78); AST/SGOT 31 U/L (15-37); Albumin 3.8 g/dL (3.4-5.0); Alkaline Phosphatase 69 U/L (45-117); BUN Blood Urea Nitrogen 18 mg/dL (7-18); Bicarbonate 27 mmol/L (21-32); Bilirubin Direct < 0.1 mg/dL (0-0.2); Bilirubin Total 0.4 mg/dL (0.2-1.0); Glucose Level 380 mg/dL (74-106); Lipase 505 U/L (73-393); Potassium 4.1 mmol/L (3.5-5.1); Protein, Total 8.2 g/dL (6.4-8.2); Sodium Level 136 mmol/L (136-145)
[2020-03-23 17:34] LABS: Urine Blood NEGATIVE (NEG); Urine Glucose 2+ (NEG); Urine Protein 3+ (NEG); Urine Specific Gravity 1.025 (1.005-1.030); Urine pH 5.5 (5.0-7.0)
--- NOTE | 2020-03-23 17:39 | RAD REPORT ---
EXAM DESCRIPTION: CTAbdomen Pelvis W Contrast - 03/23/2020 5:33 pm CLINICAL HISTORY: Abdominal pain. ABD PAIN COMPARISON: Abdomen Pelvis W Contrast dated 08/04/2019; Abdomen Pelvis W Contrast dated 11/19/2018 ; Abdomen Pelvis W Contrast dated 11/16/2018; Abdomen Pelvis W Contrast dated 11/09/2017; Transvagina l Study Probe dated 08/14/2019 TECHNIQUE: Biphasic CT imaging of the abdomen and pelvis was performed with 100 ml non-ionic IV cont rast. All CT scans are performed using dose optimization technique as appropriate and may include automated exposure control or mA/KV adjustment according to patient size. FINDINGS: The lung bases are clear. Cholecystectomy clips. The liver demonstrates diffuse fatty infiltration. The spleen, pancreas, adrenal glands and kidneys a re within normal limits. No bowel obstruction, free air, free fluid or abscess. The appendix is normal. Mild sigmoid divertic ulosis without diverticulitis. No evidence of significant lymphadenopathy. No suspicious bony findings. IMPRESSION: No acute intra-abdominal or pelvic finding. Advanced fatty liver. Sigmoid diverticulosis without diverticulitis.
[2020-03-23] MEDS ORDERED: PROMETHAZINE INJ 25 MG/ML AMP ONE (18:28)
--- NOTE | 2020-03-23 20:05 | EDPHYS ---
Physician Documentation [facility] Name: Valentina Franco Age: 40 yrs Sex: Female : 1980 Arrival Date: 03/23/2020 Time: 15:36 Bed 14 Private MD: PHYLICIA Physician Johan Giron HPI: 03/23 18:45 This 40 yrs old Female presents to ER via Ambulatory with complaints of kb Headache, Sore Throat, Abdominal Pain. 18:45 The patient presents with abdominal pain in the upper abdomen. Onset: The kb symptoms/episode began/occurred 3 day(s) ago. The symptoms do not radiate. Associated signs and symptoms: Pertinent positives: nausea, vomiting, and diarrhea, fever. The symptoms are described as constant. Modifying factors: The symptoms are alleviated by nothing, the symptoms are aggravated by food, pressure. Severity of pain: At its worst the pain was moderate in the emergency department the pain is unchanged. The patient has experienced a previous episode, but today's symptoms are not as bad as this previous episode, pancreatitis. The patient has not recently seen a physician. 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 - Social history:: Smoking status: Patient denies any tobacco usage or history of. ROS: 18:44 ENT: Negative for injury, pain, and discharge, Neck: Negative for injury, pain, and kb swelling, Cardiovascular: Negative for chest pain, palpitations, and edema, Respiratory: Negative for shortness of breath, cough, wheezing, and pleuritic chest pain, Back: Negative for injury and pain, MS/Extremity: Negative for injury and deformity, Skin: Negative for injury, rash, and discoloration. 18:44 Constitutional: Positive for chills, fatigue, fever, malaise. 18:44 Abdomen/GI: Positive for abdominal pain, nausea, vomiting, and diarrhea. 18:44 Neuro: Positive for headache, weakness. Exam: 18:44 Constitutional: This is a well developed, well nourished patient who is awake, alert, kb and in no acute distress. Head/Face: Normocephalic, atraumatic. Chest/axilla: Normal chest wall appearance and motion. Nontender with no deformity. No lesions are appreciated. Cardiovascular: Regular rate and rhythm with a normal S1 and S2. No gallops, murmurs, or rubs. Normal PMI, no JVD. No pulse deficits. Respiratory: Lungs have equal breath sounds bilaterally, clear to auscultation and percussion. No rales, rhonchi or wheezes noted. No increased work of breathing, no retractions or nasal flaring. Skin: Warm, dry with normal turgor. Normal color with no rashes, no lesions, and no evidence of cellulitis. MS/ Extremity: Pulses equal, no cyanosis. Neurovascular intact. Full, normal range of motion. Neuro: Awake and alert, GCS 15, oriented to person, place, time, and situation. Cranial nerves II-XII grossly intact. Motor strength 5/5 in all extremities. Sensory grossly intact. Cerebellar exam normal. Normal gait. 18:44 Abdomen/GI: Inspection: abdomen appears normal, Bowel sounds: normal, in all quadrants, Palpation: soft, in all quadrants, moderate abdominal tenderness, in the right upper quadrant and left upper quadrant. Vital Signs: 15:40 BP 148 / 91; Pulse 116; Resp 16; Temp 98.3; Pulse Ox 100% on R/A; Weight 104.78 kg; hb Height 5 ft. 4 in. (162.56 cm); Pain 9/10; 18:28 BP 104 / 61 LA (auto/lg); Pulse 95; Pulse Ox 96% on R/A; jp3 19:50 BP 101 / 62; Pulse 88; Resp 18; Pulse Ox 97% on R/A; Pain 4/10; wh 15:40 Body Mass Index 39.65 (104.78 kg, 162.56 cm) hb MDM: 16:34 Patient medically screened. kb 18:43 Data reviewed: vital signs, nurses notes. Data interpreted: Pulse oximetry: on room air kb is 96 %. Interpretation: normal. 20:04 Counseling: I had a detailed discussion with the patient and/or guardian regarding: the kb historical points, exam findings, and any diagnostic results supporting the discharge/admit diagnosis, lab results, radiology results, the need for outpatient follow up, a family practitioner, a snuff grinder, to return to the emergency department if symptoms worsen or persist or if there are any questions or concerns that arise at home. ED course: Tolerating po intake. Will follow up outpatient and return for worsening symptoms. 03/23 16:34 Order name: Basic Metabolic Panel; Complete Time: 17:34 kb 03/23 16:34 Order name: CBC with Diff; Complete Time: 17:29 kb 03/23 16:34 Order name: Hepatic Function; Complete Time: 17:34 kb 03/23 16:34 Order name: Lipase; Complete Time: 17:34 kb 03/23 17:23 Order name: Urine Dipstick--Ancillary (enter results); Complete Time: 17:34 eb 03/23 17:23 Order name: Urine --Ancillary (enter results); Complete Time: 17:34 eb 03/23 16:34 Order name: IV Saline Lock; Complete Time: 17:22 kb 03/23 16:38 Order name: EKG; Complete Time: 16:39 kb 03/23 16:38 Order name: CT Abd/Pelvis - IV Contrast Only; Complete Time: 17:41 kb 03/23 18:16 Order name: CREATININE WHOLE BLOOD; Complete Time: 18:17 EDMS 03/23 16:34 Order name: Labs collected and sent; Complete Time: 17:22 kb 03/23 16:38 Order name: EKG - Nurse/Tech; Complete Time: 18:21 kb 03/23 18:02 Order name: PO challenge; Complete Time: 19:28 kb 03/23 18:02 Order name: Vital Signs; Complete Time: 18:30 kb Administered Medications: 17:15 Drug: Zofran (Ondansetron) 4 mg Route: IVP; Site: right antecubital; 19:35 Follow up: Response: No adverse reaction 17:15 Drug: morphine 4 mg Route: IVP; Site: right antecubital; ah 19:35 Follow up: Response: No adverse reaction 17:21 Drug: NS 0.9% 1000 ml Route: IV; Rate: 1000 ml; Site: right antecubital; 20:37 Follow up: Response: No adverse reaction; IV Status: Completed infusion 18:21 Drug: Phenergan 12.5 mg Route: IVP; Site: right antecubital; 19:35 Follow up: Response: Nausea is decreased 20:34 Follow up: Response: No adverse reaction; Nausea is decreased wh Disposition: 03/24 10:58 Co-signature as Attending Physician, Johan Giron MD I agree with the assessment and [facility] plan of care. Disposition: 03/23/20 20:04 Discharged to Home. Impression: Upper abdominal pain, unspecified. - Condition is Stable. - Discharge Instructions: Acute Pancreatitis, [id number], Abdominal Pain, Adult, [id number]. - Prescriptions for Tylenol- Codeine #3 300-30 mg Oral Tablet - take 2 tablets by ORAL route every 6 hours As needed; 16 tablet. Zofran 4 mg Oral Tablet - take 1 tablet by ORAL route every 6 hours As needed; 20 tablet. - Medication Reconciliation Form, Thank You Letter, Antibiotic Education, Prescription Opioid Use form. - Follow up: Emergency Department; When: As needed; Reason: Worsening of condition. Follow up: Private Physician; When: 2 - 3 days; Reason: Recheck today's complaints, Continuance of care, Re-evaluation by your physician. Signatures: Dispatcher [employer] EDMilady Kelley, MANAGER CORPORATE-C MANAGER CORPORATE-Johan Ferguson MD MD cha Baxter, Heather, PETE FREEMAN Nahum Carrion Amy, RN RN Corrections: (The following items were deleted from the chart) 03/23 20:36 20:04 03/23/2020 20:04 Discharged to Home. Impression: Upper abdominal pain, wh unspecified. Condition is Stable. Forms are Medication Reconciliation Form, Thank You Letter, Antibiotic Education, Prescription Opioid Use. Follow up: Emergency Department; When: As needed; Reason: Worsening of condition. Follow up: Private Physician; When: 2 - 3 days; Reason: Recheck today's complaints, Continuance of care, Re-evaluation by your physician. kb
--- NOTE | 2020-03-23 20:05 | ER ---
Nurse's Notes [facility] Name: Valentina Franco Age: 40 yrs Sex: Female : 1980 Arrival Date: 03/23/2020 Time: 15:36 Bed 14 Private MD: Diagnosis: Upper abdominal pain, unspecified Presentation: 03/23 15:40 Chief complaint: Left upper abdominal pain, palpitations, headache, and N/V x 3 days. hb Not tolerating fluids. Coronavirus screen: diarrhea, fatigue, headache, nausea, vomiting. Client presents with at least one sign or symptom that may indicate coronavirus-19. Standard/surgical mask placed on the client. Provider contacted for isolation considerations. Ebola Screen: No symptoms or risks identified at this time. Initial Sepsis Screen: Does the patient meet any 2 criteria? HR > 90 bpm. Does the patient have a suspected source of infection? Yes:. Risk Assessment: Do you want to hurt yourself or someone else? Patient reports no desire to harm self or others. Onset of symptoms was March 21, 2020. 15:40 Method Of Arrival: Ambulatory hb 15:40 Acuity: CYNTHIA 3 hb Triage Assessment: 19:05 Headache History: The patient has had previous headaches. Pain: Pain Pain began wh suddenly, Also complains of nausea. 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 - Social history:: Smoking status: Patient denies any tobacco usage or history of. Screenin:37 Abuse screen: Denies threats or abuse. Nutritional screening: No deficits noted. Tuberculosis screening: No symptoms or risk factors identified. Fall Risk None identified. Assessment: 16:45 General: Appears uncomfortable, Behavior is calm, cooperative, appropriate for age. Pain: Complains of pain in abdomen. Neuro: Level of Consciousness is awake, alert, obeys commands, Oriented to person, place, time, situation, Appropriate for age. Cardiovascular: Heart tones S1 S2 present Capillary refill < 3 seconds Patient's skin is warm and dry. Respiratory: Airway is patent Respiratory effort is even, unlabored, Respiratory pattern is regular, symmetrical. GI: Bowel sounds present X 4 quads. Abdomen is tender to palpation in right lower quadrant Reports nausea, vomiting. Derm: Skin is intact, is healthy with good turgor. 18:20 Reassessment: Pt states that she is still having nausea. Pt is actively dry ah heaving/gagging. Phenergan ordered and given at this time. Cold rag applied to forehead and neck. PO challenge not performed at this time. 19:15 Reassessment: Patient and/or family updated on plan of care and expected duration. Pain wh level reassessed. Patient is alert, oriented x 3, equal unlabored respirations, skin warm/dry/pink. 19:38 Reassessment: Phenergan effective, Pt still has some pain. Provider aware. 19:40 Reassessment: Provider notified. GI: Reports lower abdominal pain, nausea. wh Vital Signs: 15:40 BP 148 / 91; Pulse 116; Resp 16; Temp 98.3; Pulse Ox 100% on R/A; Weight 104.78 kg; hb Height 5 ft. 4 in. (162.56 cm); Pain 9/10; 18:28 BP 104 / 61 LA (auto/lg); Pulse 95; Pulse Ox 96% on R/A; jp3 19:50 BP 101 / 62; Pulse 88; Resp 18; Pulse Ox 97% on R/A; Pain 4/10; wh 15:40 Body Mass Index 39.65 (104.78 kg, 162.56 cm) hb ED Course: 15:36 Patient arrived in ED. mr 15:43 Triage completed. hb 15:44 Arm band placed on. hb 16:20 Milady Turpin FNP-C is [facility]. kb 16:20 Johan Giron MD is Attending Physician. kb 16:58 Mary Salazar, RN is Primary Nurse. 17:00 Initial lab(s) drawn, by id, sent to lab. Urine collected:. Inserted saline lock: 20 jp3 gauge in right antecubital area, using aseptic technique. Blood collected. Patient maintains SpO2 saturation greater than 95% on room air. 17:29 Placed in gown. Bed in low position. Call light in reach. Side rails up X 1. Warm jp3 blanket given. Verbal reassurance given. Pulse ox on. NIBP on. 17:34 CT Abd/Pelvis - IV Contrast Only In Process Unspecified. EDMS 20:35 No provider procedures requiring assistance completed. IV discontinued, intact, bleeding controlled, No redness/swelling at site. Administered Medications: 17:15 Drug: Zofran (Ondansetron) 4 mg Route: IVP; Site: right antecubital; 19:35 Follow up: Response: No adverse reaction 17:15 Drug: morphine 4 mg Route: IVP; Site: right antecubital; 19:35 Follow up: Response: No adverse reaction 17:21 Drug: NS 0.9% 1000 ml Route: IV; Rate: 1000 ml; Site: right antecubital; 20:37 Follow up: Response: No adverse reaction; IV Status: Completed infusion 18:21 Drug: Phenergan 12.5 mg Route: IVP; Site: right antecubital; 19:35 Follow up: Response: Nausea is decreased 20:34 Follow up: Response: No adverse reaction; Nausea is decreased Outcome: 20:04 Discharge ordered by . nita 20:36 Discharged to home ambulatory. 20:36 Condition: stable 20:36 Discharge instructions given to patient, Instructed on discharge instructions, follow up and referral plans. no drinking with medication, no driving heavy equipment, medication usage, POC Demonstrated understanding of instructions, follow-up care, medications, POC Prescriptions given X 2. 20:36 Patient left the ED. Signatures: Dispatcher [employer] EDMS Milady Turpin, ROOPA ECHAVARRIAP-Aislinn OhaGreta Heather, RN RN Nahum Ragland Ze Tripp jp3 Mary Salazar, PETE RN Corrections: (The following items were deleted from the chart) 20:35 19:50 BP 101 / 62; Pulse 88bpm; Resp 18bpm; Pulse Ox 97% RA; Pain 9/10; [facility]
[2020-03-23 21:20] VITALS: TEMP 98.3
[2020-03-23 21:23] VITALS: BP 101/62; O2SAT 97
== END 2020-03-23 20:36 | disposition home or self-care (01) ==
LOC: ER 15:34
DX: R10.10 Upper abdominal pain, unspecified (principal); R51 Headache; R11.2 Nausea with vomiting, unspecified; E11.9 Type 2 diabetes mellitus without complications; Z79.4 Long term (current) use of insulin; E78.00 Pure hypercholesterolemia, unspecified
CPT/HCPCS: 96361; 93005; 85025; 80048; 36415; 81025; 82565; 80076; 81003; 83690; 74177; 96375; 96374; 99284; Q9967; J2550; J7030; J2405

== ENCOUNTER 2020-09-17 16:56 | Emergency (ER) | payer OTHER ==
--- OUTSIDE RECORDS SUMMARY | 2020-09-17 16:59 | XMS REPORT | Continuity of Care Document ---
:[address] [facility] t Address [address] [place] [address] Care Team Providers Name Role Phone Sydney JOSHI Attending Clinician Doctor Unassigned, Name Attending Clinician Unavailable ERNST Attending Clinician Unavailable GALAN Attending Clinician Unavailable Payers Payer Name Policy Type Policy Number Effective Date Expiration Date S ource Problems This patient has no known problems. Allergies, Adverse Reactions, Alerts Allergy Allergy Status Severity Reaction(s) Onset Inactive Treating Comm ents Source Name Type Date Date Clinician alcohol FA Active [place] [facility] 01-15 [place] 00:[facility] [place] [facility] 01-09 [place] 00:00: [place] 00 [facility] alcohol FA Active DC 2015-07 [facility] 09-06 [place] 00:00: Orthope 00 [facility] Medications This patient has no known medications. Procedures This patient has no known procedures. Encounters Start End Encounter Admission Attending Care Care Encounter Source Date/Time Date/Time Type Type Clinicians Facility Department ID 2020-06-02 2020-06-02 [id number] 00:00:00 00:00:00 Sharlene Banuelos [id number] [place] [id number] Professio [id number] [facility] 134 [facility] 2020-05-27 2020-05-27 Office Sydney [email or web address] [id number] 10:59:24 11:54:17 Visit Sharlene Banuelos [id number] [place] [id number] Professio [id number] [address] 2020-05-27 2020-05-27 Orders Doctor JACOBS [id number] 00:00:00 00:00:00 Only Unassigned, BENITA [id number] [place] [facility] [id number] 2019-11-22 2019-11-22 Outpatient ANTCOX MONETT, [facility] [id number] [address] [place] 00:00:00 00:00:00 SILVINA [address] 2019-11-06 2019-11-06 Outpatient [facility] [id number] [address] [place] 00:00:00 00:00:00 SILVINA 632 [place] 2019-11-01 2019-11-01 Outpatient [facility] [id number] [address] [place] 00:00:00 00:00:00 SILVINA 554 [place] [place] 2019-10-30 2019-10-30 Outpatient GALAN, [facility] [id number] [address] [place] 00:00:00 00:00:00 ABHIJIT 714 [address] i 2019-10-18 2019-10-18 Outpatient [facility] [id number] 0[address] [place] 00:00:00 00:00:00 SILVINA 629 [place] 2019-10-02 2019-10-02 Outpatient [facility] [id number] [address] [place] 00:00:00 00:00:00 SILVINA 105 [place] 2019-10-01 2019-10-01 Outpatient [facility] [id number] [address] [place] 00:00:00 00:00:00 SILVINA [address] 2019-09-19 2019-09-19 Outpatient ERNST, [facility] [id number] [address] [place] 00:00:00 00:00:00 SILVINA [address] 2019-09-10 2019-09-10 Outpatient ANGELIA, [facility] [id number] [address] [place] 00:00:00 00:00:00 ABHIJIT [address] 2019-09-10 2019-09-10 Outpatient ERNST, [facility] [id number] [address] [place] 00:00:00 00:00:00 SILVINA [address] 2019-09-10 2019-09-10 Outpatient ERNST, [facility] [id number] 7[address] [place] 00:00:00 00:00:00 SILVINA [address] Results Test Description Test Time Test Comments Results Result [facility] e Comments - CT UP EXTREM W/O 2020-08-11 CONT LT 08:37:[facility] 1980 Sex: F Patient Name: MARGE FRANCO Unit No: [id number] EXAMS: CPT CODE: [id number] [place] EXTREM W/[place] [address] [place] SCAN LEFT WRIST WITH RECONSTRUCTION DIAGNOSIS: 1. No evidence of fracture or dislocation. The scaphoid is within normal limits. No evidence of scapholunate disassociation. No evidence of focal bony lesion. TECHNIQUE: Volumetric CT data of the left wrist was obtained without use of intravenous contrast. Images were then viewed in the axial, coronal and sagittal planes. CT radiation dose optimization is achieved for this examination by the use of a CT protocol in accordance with ACR practice standards and adherence to electrical assemblies supervisor's recommendations. INDICATION: LEFT WRIST SPRAIN, POSSIBLE SCAPHOID FRACTURE COMPARISON: None. COMMENT: Findings are as described above. at 0837 Reported and signed by: America Schuler MD CC: Bebeto Quiroga MD Technologist: KAVEH WYMAN MRI CTDI: DLP: Trnscrpt: 08/11/2020 (0837) NoelGVG [facility] NAME: MARGE FRANCO [address] [facility] PHYS: Bebeto Valiente MD : 1980 AGE: 40 SEX: F [place] [address] LOC: Y.RAD PHONE #: [phone] EXAM DATE: 08/08/2020 STATUS: DEP CLI FAX #: [phone] RAD #: D/C DT PAGE 1 Signed Report Patient Name: MARGE FRANCO Unit No: [id number] EXAMS: CPT CODE: [id number] CT UP EXTREM W/[place] [address] <Continued> Orig Print D/T: S: 08/11/2020 (0840) [facility] NAME: MARGE FRANCO [address] [facility] PHYS: Bebeto Valiente MD : 1980 AGE: 40 SEX: F [place] [address] LOC: Y.RAD PHONE #: [phone] EXAM DATE: 08/08/2020 STATUS: DEP CLI FAX #: [phone] RAD #: D/C DT PAGE 2 Signed Report - XR FOREARM 2 2020-08-04 VIEWS LT 09:10:00 [facility] 1980 Sex: F Patient Name: MARGE FRANCO Unit No: [id number] EXAMS: CPT CODE: [id number] XR FOREARM [address] [place] [address] Left forearm and wrist 4 views COMMENT: There is no evidence for fracture or subluxation. No focal bony lesions are seen. at 0910 Reported and signed by: Prasad Marina MD CC: Rafy Ferguson MD Technologist: Marie Johnson(R) Transcribed D/ (0910) Renee [facility] NAME: MARGE FRANCO [address] [place] [address] PHYS: HAMST. - Rafy Ferguson Sc : 1980 AGE: 40 SEX: F [place] [address] LOC: TEOFILO PHONE #: [phone] EXAM DATE: 08/02/2020 STATUS: DEP ER FAX #: [phone] RAD #: D/C DT PAGE 1 Signed Report Patient Name: MARGE FRANCO Unit No: [id number] EXAMS: CPT CODE: [id number] XR FOREARM [address] [place] [address] <Continued> Orig Print D/T: S: 08/04/2020 (0914) [facility] NAME: MARGE FRANCO [address] [place] [address] PHYS: HAMST.Rell - MartyMarcelRafy Sc : 1980 AGE: 40 SEX: F [place] [address] LOC: TEOFILO PHONE #: [phone] EXAM DATE: 08/02/2020 STATUS: DEP ER FAX #: [phone] RAD #: D/C DT PAGE 2 Signed Report - XR ANKLE 3 + V 2020-02-14 Patient Name: RT 07:19:00 Marge Franco Unit No: [id number] EXAMS: CPT CODE: [id number] XR ANKLE 3 + V RT [address] Right ankle 3 views COMMENT: There is [...] Technologist: SAMANTHA MORALES, RT(R) Transcribed D/ (718) MickeyL [facility] NAME: Marge Franco [address] [place] [address] PHYS: Barry Cardenas DO : 1980 AGE: 40 SEX: F [place] [address] LOC: TEOFILO PHONE #: [phone] EXAM DATE: 02/13/2020 STATUS: DEP ER FAX #: [phone] RAD #: D/C DT PAGE 1 Signed Report Patient Name: Marge Franco Unit No: [id number] EXAMS: CPT CODE: [id number] XR ANKLE 3 + V RT [address]336 <Continued> Orig Print D/T: S: 02/14/2020 (07) [facility] NAME: Marge Franco [address] [place] [address] PHYS: Barry Cardenas DO : 1980 AGE: 40 SEX: F [place] [address] LOC: TEOFILO PHONE #: [phone] EXAM DATE: 02/13/2020 STATUS: DEP ER FAX #: [phone] RAD #: D/C DT PAGE 2 Signed Report - XR FOOT 2 VIEWS 2020-02-14 Patient Name: RT 07:19:00 Marge Franco Unit No: [id number] EXAMS: CPT CODE: [id number] XR FOOT [address] [place] [address] Right ankle 3 views COMMENT: There is [...] Technologist: SAMANTHA MORALES, RT(R) Transcribed D/ (718) MickeyL [facility] NAME: Marge Franco [address] [place] [address] PHYS: Barry Cardenas DO : 1980 AGE: 40 SEX: F [place] [address] LOC: TEOFILO PHONE #: [phone] EXAM DATE: 02/13/2020 STATUS: DEP ER FAX #: [phone] RAD #: D/C DT PAGE 1 Signed Report Patient Name: Marge Franco Unit No: [id number] EXAMS: CPT CODE: [id number] XR FOOT [address] [place] [address] <Continued> Orig Print D/T: S: 02/14/2020 (07) [facility] NAME: Marge Franco [address] [place] [address] PHYS: Barry Cardenas DO : 1980 AGE: 40 SEX: F [place] [address] LOC: TEOFILO PHONE #: [phone] EXAM DATE: 02/13/2020 STATUS: DEP ER FAX #: [phone] RAD #: D/C DT PAGE 2 Signed Report GLUBED 2020-01-16 11:17:00 Test Item Value Reference Range Interpretation Comme nts GLUBED (test code = GLUBED) 119 mg/dL 60-125 N [id number] 08:15:00 Test Item Value Reference Range Interpretation Comments GLUBED (test code = GLUBED) 117 mg/dL 60-125 N Novel Coronavirus 2019 [id number] 17:12:00 Test Item Value Reference Range Interpretation Comments Novel Coronavirus 2019 Inhouse (test Negative Negative code = COVNONPUI) Novel Coronavirus 2019 [id number] 17:12:00 Test Item Value Reference Range Interpretation Comments Novel Coronavirus 2019 Inhouse (test Negative Negative code = COVNONPUI) CBC W/AUTO [id number] 20:19:00 Test Item Value Reference Range Interpretation [...] 0-0 N code = NRBC) BASIC METABOLIC [id number] 19:54:00 Test Item Value Reference Range Interpretation [...] RATE (test code = GFR) mL/mi n/1.73 p6Ctshaxamw Range:Healthy A dults >90 mL/min/1.73 m2 For [...] CA) - CT LOWER EXTRM W/O C [id number] 14:57:00 Patient Name: MARGE FRANCO Unit No: [id number] EXAMS: CPT CODE: [id number] CT L[place] EXTRM W/[place] [address] [place] SCAN RIGHT ANKLE WITH RECONSTRUCTION DIAGNOSIS: [...] with ACR practice standards and adherence to electrical assemblies supervisor's recommendations. INDICATION: RIGHT ANKLE PAIN COMPARISON: None. COMMENT: Findings are as described above. at 1452 Reported and signed by: America Schuler MD CC: Elbert Wilson MD Technologist: Shaan Nassar,RT(R) CTDI: DLP: Trnscrpt: 01/04/2020 (5414) [email or web address] [facility] NAME: MARGE FRANCO [address] [place] [address] PHYS: Elbert Rodrigues MD : 1980 AGE: 39 SEX: F [place] [address] LOC: Y.RAD PHONE #: [phone] EXAM DATE: 01/04/2020 STATUS: REG CLI FAX #: [phone] RAD #: D/C DT PAGE 1 Signed Report Patient Name: MARGE FRANCO Unit No: [id number] EXAMS: CPT CODE: [id number] CT LOWER EXTRM W/[place] [address] <Continued> Orig Print D/T: S: 01/04/2020 (1500) [facility] NAME: [facility] [address] [place] [address] PHYS: Elbert Rodrigues MD : 1980 AGE: 39 SEX: F [place] [address] LOC: Y.RAD PHONE #: [phone] EXAM DATE: 01/04/2020 STATUS: REG CLI FAX #: [phone] RAD #: D/C DT PAGE 2 Signed Report
[2020-09-17 19:38] LABS: SARS-COV-2 RT PCR NEGATIVE (NEGATIVE)
--- NOTE | 2020-09-17 20:55 | RAD REPORT ---
EXAM DESCRIPTION: Pamela Ruiz (2 Views)09/17/2020 8:40 pm CLINICAL HISTORY: Cough COMPARISON: 2018 FINDINGS: The lungs appear clear of acute infiltrate. The heart is normal size IMPRESSION: No acute abnormalities displayed
--- NOTE | 2020-09-17 20:58 | ER ---
Nurse's Notes [facility] Name: Valentina Franco Age: 40 yrs Sex: Female : 1980 Arrival Date: 09/17/2020 Time: 16:59 Bed 13 Private MD: Diagnosis: Acute upper respiratory infection, unspecified Presentation: 09/17 17:00 Chief complaint: Patient states: i have been running fever today, yesterday my throat tw2 started hurting, i started running a low grade fever, today i am coughing hot cold sweaty, clammy, i feel like i cant think, i have a dry cough, my coworker tested for covid and she tested positive, and i have diabetes. Coronavirus screen: chills, difficulty breathing, fatigue, fever, nausea, shaking with chills, Client presents with at least one sign or symptom that may indicate coronavirus-19. Standard/surgical mask placed on the client. Provider contacted for isolation considerations. Ebola Screen: Patient denies travel to an Ebola-affected area in the 21 days before illness onset. Initial Sepsis Screen: Does the patient meet any 2 criteria? No. Patient's initial sepsis screen is negative. Does the patient have a suspected source of infection? No. Patient's initial sepsis screen is negative. Risk Assessment: Do you want to hurt yourself or someone else? Patient reports no desire to harm self or others. Onset of symptoms was September 17, 2020. 17:00 Method Of Arrival: Ambulatory tw2 17:00 Acuity: CYNTHIA 3 tw2 Triage Assessment: 17:04 General: Appears in no apparent distress. obese, well groomed, Behavior is calm, tw2 cooperative, appropriate for age. Pain: Complains of pain in uvula, left aspect of posterior pharynx and right aspect of posterior pharynx. Respiratory: Reports cough that is non-productive, dry, hacking, persistent. Historical: - Allergies: 17:04 No Known Allergies; tw2 - Home Meds: 17:04 Victoza 2-Christofer 0.6 mg/0.1 mL (18 mg/3 mL) subcutaneous pnij [Active]; metformin 1,000 mg tw2 Oral tr24 1 tab twice a day for Type 2 Diabetes Mellitus [Active]; lisinopril 10 mg Oral tab 1 tab once daily [Active]; glipizide 10 mg Oral tab 1 tab 2 times per day [Active]; Tresiba FlexTouch U-100 100 unit/mL (3 mL) subcutaneous inpn [Active]; - PMHx: 17:04 "heart racing"; Anxiety; Depression; Diabetes - NIDDM; High Cholesterol; Pancreatitis; tw2 UTI; - Immunization history:: Adult Immunizations Client reports having NOT received the Covid vaccine. - Social history:: Smoking status: Patient denies any tobacco usage or history of. Assessment: 21:30 General: Appears in no apparent distress. comfortable, Behavior is calm, cooperative. sf Neuro: No deficits noted. Cardiovascular: No deficits noted. Respiratory: No deficits noted. Vital Signs: 17:00 Pulse 117; Resp 19; Temp 97.9(TE); Pulse Ox 98% on R/A; Weight 102.97 kg (R); Height 5 tw2 ft. 4 in. (162.56 cm); 17:00 Body Mass Index 38.96 (102.97 kg, 162.56 cm) tw2 ED Course: 16:59 Patient arrived in ED. am2 17:02 Triage completed. tw2 17:04 Arm band placed on. tw2 17:15 Milady Turpin FNP-C is [facility]. kb 17:15 Tiburcio Linder MD is Attending Physician. kb 17:52 Flu Sent. tw2 17:52 COVID-19 : Document "Date of Symptom Onset" if Symptomatic. Sent. tw2 21:02 Rafy Martinez, RN is Primary Nurse. sf Administered Medications: No medications were administered Outcome: 20:57 Discharge ordered by . kb 21:29 Discharged to home ambulatory. sf 21:29 Condition: stable 21:29 Discharge instructions given to Patient left without discharge instructions 21:30 Patient left the ED. sf Signatures: Milady Turpin FNP-C FNP-Ckb Wise, Tara, RN RN 2 Ashley Diaz am Rafy Martinez, PETE RN sf
--- NOTE | 2020-09-17 20:58 | EDPHYS ---
Physician Documentation [facility] Name: Valentina Franco Age: 40 yrs Sex: Female : 1980 Arrival Date: 09/17/2020 Time: 16:59 Bed 13 Private MD: ED Physician Tiburcio Linder HPI: 09/17 21:26 This 40 yrs old Female presents to ER via Ambulatory with complaints of Fever, kb Cough. 21:26 The patient or guardian reports cough, that is intermittent, described as mild, with no kb sputum, flu symptoms, low-grade fever, myalgias. Onset: The symptoms/episode began/occurred yesterday. Severity of symptoms: At their worst the symptoms were moderate, in the emergency department the symptoms are unchanged. Modifying factors: The symptoms are alleviated by nothing, the symptoms are aggravated by nothing. Associated signs and symptoms: Pertinent positives: fever, rhinorrhea, sore throat. The patient has not experienced similar symptoms in the past. The patient has not recently seen a physician. 21:27 Pt reports cough, fever, chills, sore throat since yesterday. Coworker positive for kb COVID. Historical: - Allergies: 17:04 No Known Allergies; tw2 - Home Meds: 17:04 Victoza 2-Christofer 0.6 mg/0.1 mL (18 mg/3 mL) subcutaneous pnij [Active]; metformin 1,000 mg tw2 Oral tr24 1 tab twice a day for Type 2 Diabetes Mellitus [Active]; lisinopril 10 mg Oral tab 1 tab once daily [Active]; glipizide 10 mg Oral tab 1 tab 2 times per day [Active]; Tresiba FlexTouch U-100 100 unit/mL (3 mL) subcutaneous inpn [Active]; - PMHx: 17:04 "heart racing"; Anxiety; Depression; Diabetes - NIDDM; High Cholesterol; Pancreatitis; tw2 UTI; - Immunization history:: Adult Immunizations Client reports having NOT received the Covid vaccine. - Social history:: Smoking status: Patient denies any tobacco usage or history of. ROS: 21:25 Neck: Negative for injury, pain, and swelling, Cardiovascular: Negative for chest pain, kb palpitations, and edema, Abdomen/GI: Negative for abdominal pain, nausea, vomiting, diarrhea, and constipation, MS/Extremity: Negative for injury and deformity, Skin: Negative for injury, rash, and discoloration, Neuro: Negative for headache, weakness, numbness, tingling, and seizure. 21:25 Constitutional: Positive for body aches, chills, fatigue, fever, malaise. 21:25 ENT: Positive for rhinorrhea, sore throat. 21:25 Respiratory: Positive for cough, Negative for dyspnea on exertion, hemoptysis, orthopnea, pleurisy, shortness of breath, sputum production, wheezing. Exam: 21:25 Constitutional: This is a well developed, well nourished patient who is awake, alert, kb and in no acute distress. Head/Face: Normocephalic, atraumatic. Cardiovascular: Regular rate and rhythm with a normal S1 and S2. No gallops, murmurs, or rubs. No pulse deficits. Respiratory: Lungs have equal breath sounds bilaterally, clear to auscultation. No rales, rhonchi or wheezes noted. No increased work of breathing, no retractions or nasal flaring. Abdomen/GI: Soft, non-tender, with normal bowel sounds. No distension. No guarding or rebound. No evidence of tenderness throughout. Skin: Warm, dry with normal turgor. Normal color with no rashes, no lesions, and no evidence of cellulitis. MS/ Extremity: Pulses equal, no cyanosis. Neurovascular intact. Full, normal range of motion. Neuro: Awake and alert, GCS 15, oriented to person, place, time, and situation. Cranial nerves II-XII grossly intact. Moves all extremities. Sensory grossly intact. Cerebellar exam normal. Normal gait. Vital Signs: 17:00 Pulse 117; Resp 19; Temp 97.9(TE); Pulse Ox 98% on R/A; Weight 102.97 kg (R); Height 5 tw2 ft. 4 in. (162.56 cm); 17:00 Body Mass Index 38.96 (102.97 kg, 162.56 cm) tw2 MDM: 20:45 Patient medically screened. kb 21:25 Data reviewed: vital signs, nurses notes. Data interpreted: Pulse oximetry: on room air kb is 98 %. Interpretation: normal. Counseling: I had a detailed discussion with the patient and/or guardian regarding: the historical points, exam findings, and any diagnostic results supporting the discharge/admit diagnosis, lab results, radiology results, the need for outpatient follow up, a family practitioner, to return to the emergency department if symptoms worsen or persist or if there are any questions or concerns that arise at home. 09/17 17:18 Order name: Flu 09/17 17:18 Order name: COVID-19 : Document "Date of Symptom Onset" if Symptomatic. 09/17 18:34 Order name: [facility] 09/17 18:34 Order name: Influenza Screen (A [facility] 09/17 19:39 Order name: COVID-19/FLU A+B; Complete Time: 19:44 EDPA 09/17 19:44 Order name: Chest Pa And Lat (2 Views) XRAY 09/17 20:55 Order name: RAD; Complete Time: 20:56 EDPA Administered Medications: No medications were administered Disposition: 09/17/20 20:57 Discharged to Home. Impression: Acute upper respiratory infection, unspecified. - Condition is Stable. - Discharge Instructions: Upper Respiratory Infection, Adult, Mqmg-jw-Jbox, Viral Respiratory Infection, Uykh-Hz-Ufib, COVID-19. - Work release form, Medication Reconciliation Form, Thank You Letter, Antibiotic Education, Prescription Opioid Use form. - Follow up: Emergency Department; When: As needed; Reason: Worsening of condition. Follow up: Private Physician; When: 2 - 3 days; Reason: Recheck today's complaints, Continuance of care, Re-evaluation by your physician. Addendum: 09/19/2020 19:04 Co-signature as Attending Physician, Tiburcio Linder MD. r n Signatures: Dispatcher [employer] [facility] Milady Turpin, BINGO USHER-C BINGO USHER-Ckb Tiburcio Linder MD MD rn Wise, Tara, RN RN tw2 Rafy Martinez RN RN sf Corrections: (The following items were deleted from the chart) 09/17 21:30 20:57 09/17/2020 20:57 Discharged to Home. Impression: Acute upper respiratory sf infection, unspecified. Condition is Stable. Forms are Medication Reconciliation Form, Thank You Letter, Antibiotic Education, Prescription Opioid Use. Follow up: Emergency Department; When: As needed; Reason: Worsening of condition. Follow up: Private Physician; When: 2 - 3 days; Reason: Recheck today's complaints, Continuance of care, Re-evaluation by your physician. kb
[2020-09-18 00:51] VITALS: TEMP 97.9; O2SAT 98
== END 2020-09-17 21:30 | disposition home or self-care (01) ==
LOC: ER 16:56
DX: J06.9 Acute upper respiratory infection, unspecified (principal); Z20.822 Contact with and (suspected) exposure to COVID-19; E11.9 Type 2 diabetes mellitus without complications; F41.9 Anxiety disorder, unspecified; F32.9 Major depressive disorder, single episode, unspecified; E78.00 Pure hypercholesterolemia, unspecified; Z79.84 Long term (current) use of oral hypoglycemic drugs
CPT/HCPCS: 0240U; 71046; 99282

== ENCOUNTER 2021-11-08 19:42 | Emergency (ER) | payer OTHER ==
--- OUTSIDE RECORDS SUMMARY | 2021-11-08 19:47 | XMS REPORT | Continuity of Care Document ---
:1980 Author Organization [facility] t Address [address] [place] [address] Care Team Providers Name Role Phone HENNY Kandice [facility] Primary Care Physic diana Unavailable Cinthia Quiroga Attending Clinician Unavailable Katie Attending Clinician Unavailable America EDUARDO Attending Clinician Unavailable America Eduardo NP Attending Clinician Attending Clinician Unavailable Singer PEOPLES Attending Clinician José Miguel CARDOZO Attending Clinician Nakul JANG Attending Clinician Unavailable Laine MEI S Attending Clinician Nakul ESPINOSA Attending Clinician Unavailable Misty ROD S Attending Clinician Juan Antonio Thompson MD Attending Clinician Juan Antonio THOMPSON Attending Clinician Unavailable Saida GONZALEZ Attending Clinician Unavailable ROBBIE Attending Clinician Unavailable Adrienne JOSHI Attending Clinician LUIS Attending Clinician Unavailable ADRIENNE Attending Clinician Unavailable Doctor Unassigned, Name Attending Clinician Unavailable CORINNE Attending Clinician Unavailable ERNST Attending Clinician Unavailable ANGELIA Attending Clinician Unavailable Fay Lopez Attending Clinician Unavailable KNOW Admitting Clinician Unavailable Katie Admitting Clinician Unavailable Physician, Primary or Family Admitting Clinician UnavailAmerica Lopez Admitting Clinician Unavailable Admitting Clinician Unavailable Cinthia Quiroga Admitting Clinician Unavailable LAINE, Nakul Admitting Clinician Unavailable Nakul ESPINOSA Admitting Clinician Unavailable Fay Lopez Admitting Clinician Unavailable Payers Payer Name Policy Type Policy Number Effective Date Expiration Date Nakul zavala [employer] [id number] 2019 00:00:00 COMMERCIAL [id number] 2021 NON-CONTRACT 00:00:00 GENERIC Problems Condition Condition Condition Status Onset Resolution Last Treating Co mments Source Name Details Category Date Date Treatment Clinician Date Essential Essential Disease Active Uni vers hypertensi hypertensi 5-26 it y of on on 00:00: [place] [facility] POTS POTS Disease Active Univers (postural (postural 5-26 ity of orthostati orthostati [place] [facility] tachycardi tachycardi Br anch a a syndrome) syndrome) Dyslipidem Dyslipidem Disease Active U nivers ia ia 5-26 ity of 00:00: [place] [facility] Atypical Atypical Disease Active Unive rs chest pain chest pain 5-25 it y of 00:00: [place] [facility] Pancreatit Pancreatit Disease Active U nivers is, is, 4-24 ity of recurrent [facility] Pain at Pain at Disease Active Univers surgical surgical 1-30 ity of incision incision 00:00: [place] [facility] Mood Mood Disease Active Univers swings swings 1-30 ity of 00:00: [place] [facility] Gestationa Gestationa Disease Active 2012-07 U floresers l l 2-21 ity of hypertensi hypertensi [place] [facility] [place] Gestationa Gestationa Disease Active 2012-07 U nivers l l 2-21 ity of hypertensi hypertensi 00:[place] [facility] [place] Ventral Ventral Disease Active 2012-07 Univers hernia hernia 2-21 ity of 00:00: [place] 00 Medical Branch 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 U nivers supraventr l 0-08 ity of icular supraventr 00:00: [place] tachycardi icular 00 Medica l a s/p tachycardi Branch ablation a s/p ablation Other Other Disease Active Univers abnormalit abnormalit 02-07 it y of ies in ies in 00:00: [place] shape or shape or 00 Medica l position position Branch of gravid of gravid uterus and uterus and of of neighborin neighborin g g structures structures , , antepartum antepartum Biliary Biliary Disease Active Univers colic colic 02-07 ity of 00:00: [place] 00 Medical Branch Generalize Generalize Disease Active U nivers d anxiety d anxiety 7-18 ity of disorder disorder 00:00: [place] [facility] Not immune Not immune Disease Active Overview : Univers to rubella to rubella 6-06 Formattin ity of 00:00: g of this [place] 00 note Medical might be Branch different from the original. Immunize postpartu mICD10 Diagnosis Term Senior Net Developer Utility Immune to Immune to Disease Active Uni vers varicella varicella 6- ity of 00:00: [place] 00 Medical Branch Morbid Morbid Disease Active Univers obesity obesity 3-02 ity of 00:00: [place] 00 Medical Branch Type 2 Type 2 Disease Active Overview: Univer s diabetes diabetes 5-06 Formattin ity of mellitus mellitus 00:00: g of this [place] as with other with other 00 note Me dical specified specified might be Br anch complicati complicati different on on from the original. Insulin control since Allergies, Adverse Reactions, Alerts Allergy Allergy Status Severity Reaction(s) Onset Inactive Treating Comm ents Source Name Type Date Date Clinician No Known DA Active [facility] [place] All[facility]ie 00:[facility] FA Active [place] [facility]ES [facility]- [place] 00:00: [facility] tequila DA Active [place] hives [facility]- [place] 00:00: [facility] alcohol FA Active [place] [facility] 01-15 [place] 00:00: [facility] alcohol FA Active [place] [facility] [place] 01-15 [place] 00:00: [facility]ope 00 [facility] tequila DA Active [place] hives [facility] 01-09 [place] 00:00: [place] 00 [facility] alcohol FA Active [place] 2015-07 [facility] 09-06 [place] 00:00: [facility] alcohol FA Active [place] TURNS RED 2015-07 [facility] 09-06 [place] 00:00: [facility] 00 [facility] NO KNOWN Drug Active Univers ALLERGIE Class ity of S [facility] Social History Social Habit Start Date Stop Date Quantity Comments Source History SDOH University o f Alcohol Frequency [facility] edical [place] History SDAR University o f Alcohol Std [place] Medical Drinks Branch History SDAR University o f Alcohol Binge [place] Medic al Branch Exposure to Not sure [facility] SARS-CoV-2 [facility] (event) [place] Alcohol intake 2021-10-16 2021-10-16 Current drinker of Un iversity of 00:00:00 00:00:00 alcohol (finding) [facility] Alcohol Comment 2019-08-15 2019-08-15 ocassionally Univers ity of 00:00:00 00:00:00 [facility] Tobacco use and 2011-12-19 2011-12-19 Never used Universit y of exposure 00:00:00 00:00:00 [facility] Sex [birth year] At [birth year] Universit y of 00:00:00 00:00:00 [facility] Smoking Status Start Date Stop Date Source Never smoker [facility] Medications Ordered Filled Start Stop Current Ordering Indication Dosage Frequency Signature Comments Components Source Medication Medication Date Date Medication? Clinician (SIG) Name Name NaCl 0.9% 1000mL at 999 Uni vers (NS) IV 4- 04-09 mL/hr, ity of infusion 02:00[place] 02:08 [place]venou [place] 1,000 mL 00 :00 s, ONCE, 1 Medic al dose, On Branch Tue10/16/21 at 2100, MALAIKA insulin 2021- No .1U/kg 10.3 Units U nivers regular 10-17 (rounded ity of human 02:00: 01:14 from 10.34 [place] (HUMULIN R) 00 :00 Units = Medic al injection 0.1 Branch 10.3 Units Units/kg ?103.4 kg), Slow IV Push, ONCE, 1 dose, On Tue10/16/21 at 2100, STAT oxybutynin 2021- No 5mg 5 mg, Unive rs chloride 10-17 Oral, ity of (DITROPAN) 02:00: 01:09 ONCE, 1 [place] tablet 5 mg 00 :00 dose, On Medi bonita 10/16/21 Branch at 2100, Routine traMADoL No 50mg 50 mg, Univer s (ULTRAM) 10-17 Oral, ity of tablet 50 02:00: 01:08 ONCE, 1 [place] mg 00 :00 dose, On Medical Tue10/16/21 Branch at 2100, Routine NaCl 0.9% No 1000mL at 999 Uni vers (NS) bolus 10-16 mL/hr, ity of infusion 23:15: 00:38 1,000 mL, [place] 1,000 mL 00 :00 IV Medical Infusion, Branch ONCE, 1 dose, On Tue10/16/21 at 1815, MALAI[place] ondansetron No 4mg 4 mg, Slow Univers (ZOFRAN 10-16 IV Push, ity of (PF)) 23:15: 23:05 ONCE, 1 [place] injection 4 00 :00 dose, On Medi bonita mg Tue10/16/21 Branch at 1815, MALAIKA ketorolac 2021- No 30mg 30 mg, Unive rs (TORADOL) 10-16 Slow IV ity of injection 23:15: 23:05 Push, [place] 30 mg 00 :00 ONCE, 1 Medical dose, On Branch Tue10/16/21 at 1815, Routine
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 ondansetron Yes [id number] 4mg Take 1 Univers 4 mg 4-08 tablet by ity of disintegrat 00:00: mouth [place] ing tablet 00 every 8 Medica l (eight) Branch hours as needed for Nausea and Vomiting (N/V). traMADoL 50 2021- Yes [id number] 50mg Take 1 Uni vers mg tablet 4-08 04-16 tablet by ity of 00:00: 04:59 mouth [place] 00 :00 every 8 Medical (eight) Branch hours as needed for Pain (scale 4-6) or Pain (scale 7-10) for up to 7 days. Indication s: acute pain ketorolac 2021- Yes 15mg 15 mg, Unive rs (TORADOL) 09-22-16 Slow IV ity of injection 17:00: 16:59 Push, Q6H, [place] 15 mg 00 :00 4 doses, Medical First dose Branch on Tue09/22/21 at 1200, Last dose on Tue09/23/21 at 0600, Routine NaCl 0.9% 2021- No 1000mL at 999 Uni vers (NS) bolus 09-22-15 mL/hr, ity of infusion 16:15: 17:05 1,000 mL, [place] 1,000 mL 00 :00 IV Medical Piggyback, Branch ONCE, 1 dose, On Tue09/22/21 at 1115, STAT ondansetron 2021- No 4mg 4 mg, Slow Univers (ZOFRAN 09-22-15 IV Push, ity of (PF)) 15:15: 15:18 ONCE, 1 [place] injection 4 00 :00 dose, On Medi bonita mg Tue Branch 09/22/21 at 1015, Routine morpHINE 2020-07- No 4mg 4 mg, Slow Un fabiana injection 4 - 12-09 IV Push, ity of mg 14:30: 13:31 ONCE, 1 [place] 00 :00 dose, On Medical Rachael Branch 06/18/21 at 0830, STAT NaCl 0.9% 2020-07 Yes 1000mL at 999 Univ ers (NS) IV 2-09 mL/hr, ity of infusion 14:00: Intravenou [place] 1,000 mL 00 s, Medical CONTINUOUS Branch , Starting on Rachael 06/18/21 at 0800, Until Discontinu ed, Routine ketorolac 2020-07 30mg 30 mg, Unive rs (TORADOL) -03 22-09 Slow IV ity of injection 13:15: 12:10 Push, [place] 30 mg 00 :00 ONCE, 1 Medical dose, On Branch Rachael 06/18/21 at 0715, MALAIKA traMADoL 50 2020-07 Yes [id number] 50mg Take 1 Univ ers mg tablet 2-09 tablet by ity o f 00:00: mouth [place] 00 every 6 Medical (six) Branch hours as needed for Pain (scale 4-6). Indication s: acute pain ondansetron 2020-07 Yes [id number] 4mg Take 1 Univers 4 mg 2-09 tablet by ity of disintegrat 00:00: mouth [place] ing tablet 00 every 4 Medica l (four) Branch hours as needed for Nausea and Vomiting (N/V). traMADoL 50 2020-07 Yes [id number] 50mg Take 1 Univ ers mg tablet 2-09 tablet by ity o f 00:00: mouth [place] 00 every 6 Medical (six) Branch hours as needed for Pain (scale 4-6). Indication s: acute pain ondansetron 2020-07 Yes [id number] 4mg Take 1 Univers 4 mg 2-09 tablet by ity of disintegrat 00:00: mouth [place] ing tablet 00 every 4 Medica l (four) Branch hours as needed for Nausea and Vomiting (N/V). traMADoL 50 2020-07 Yes [id number] 50mg Take 1 Univ ers mg tablet 2-09 tablet by ity o f 00:00: mouth [place] 00 every 6 Medical (six) Branch hours as needed for Pain (scale 4-6). Indication s: acute pain ondansetron 2020-07 Yes [id number] 4mg Take 1 Univers 4 mg 2-09 tablet by ity of disintegrat 00:00: mouth [place] ing tablet 00 every 4 Medica l (four) Branch hours as needed for Nausea and Vomiting (N/V). traMADoL 50 2020-07 No [id number] 50mg Take 1 Uni vers mg tablet 08-19 tablet by ity of 00:00: 00:00 mouth [place] 00 :00 every 6 Medical (six) Branch hours as needed for Pain (scale 4-6). Indication s: acute pain ondansetron 2020-07- No [id number] 4mg Take 1 Univers 4 mg 08-19 tablet by ity of disintegrat 00:00: 00:00 [place] ing tablet 00 :00 every 4 Medica l (four) Branch hours as needed for Nausea and Vomiting (N/V). ondansetron 2020-07 No 4mg 4 mg, Slow Univers (ZOFRAN 07-31 IV Push, ity of (PF)) 00:00: 23:01 ONCE, 1 [place] injection 4 00 :00 dose, On Medi bonita mg Sat Branch 05/30/21 at 1800, MALAIKA HYDROcodone 2020-07 No 1{tbl} 1 tablet, Univers -acetaminop 07-31 Oral, ity of hen (NORCO) 00:00: 22:57 ONCE, 1 [place] 10-325 mg 00 :00 dose, On Medica l tablet 1 Sat Branch tablet 05/30/21 at 1800, Routine iopamidol 2020-07 No [id number] 100mL 100 mL, Univers (ISOVUE 07-30 9109 Intravenou ity o f 370-500 mL) 23:48: 23:48 s, ONCE, 1 [place] injection 00 :00 dose, On Medica l 100 mL Sat Branch 05/30/21 at 1800, Routine ibuprofen 2020-07 Yes [id number] 600mg Take 1 Univers 600 mg -20 [id number] tablet by ity of tablet 00:00: mouth [place] 00 every 6 Medical (six) Branch hours as needed for Pain (scale 4-6). traMADoL 50 2020-07 Yes [id number] 50mg Take 1 Univ ers mg tablet 1-20 tablet by ity o f 00:00: mouth [place] 00 every 6 Medical (six) Branch hours as needed for Pain (scale 7-10). Indication s: acute pain ibuprofen 2020-07 Yes [id number] 600mg Take 1 Univers 600 mg 1-20 [id number] tablet by ity of tablet 00:00: mouth [place] 00 every 6 Medical (six) Branch hours as needed for Pain (scale 4-6). traMADoL 50 2020-07 Yes [id number] 50mg Take 1 Univ ers mg tablet 1-20 tablet by ity o f 00:00: mouth [place] 00 every 6 Medical (six) Branch hours as needed for Pain (scale 7-10). Indication s: acute pain ibuprofen 2020-07 Yes [id number] 600mg Take 1 Univers 600 mg 1-20 [id number] tablet by ity of tablet 00:00: mouth [place] 00 every 6 Medical (six) Branch hours as needed for Pain (scale 4-6). traMADoL 50 2020-07 Yes [id number] 50mg Take 1 Univ ers mg tablet 1-20 tablet by ity o f 00:00: mouth [place] 00 every 6 Medical (six) Branch hours as needed for Pain (scale 7-10). Indication s: acute pain ibuprofen 2020-07 Yes [id number] 600mg Take 1 Univers 600 mg 1-20 [id number] tablet by ity of tablet 00:00: mouth [place] 00 every 6 Medical (six) Branch hours as needed for Pain (scale 4-6). traMADoL 50 2020-07 Yes [id number] 50mg Take 1 Univ ers mg tablet 1-20 tablet by ity o f 00:00: mouth [place] 00 every 6 Medical (six) Branch hours as needed for Pain (scale 7-10). Indication s: acute pain ibuprofen 2020-07 Yes [id number] 600mg Take 1 Univers 600 mg 1-20 [id number] tablet by ity of tablet 00:00: mouth [place] 00 every 6 Medical (six) Branch hours as needed for Pain (scale 4-6). traMADoL 50 2020-07- No [id number] 50mg Take 1 Uni vers mg tablet 1-20 04-08 tablet by ity of 00:00: 00:00 mouth [place] 00 :00 every 6 Medical (six) Branch hours as needed for Pain (scale 7-10). Indication s: acute pain VASCEPA 1 Yes [id number] TAKE 3 U nivers gram 9-10 CAPSULES ity of capsule 00:00: BY MOUTH [place] 00 EVERY DAY Medical Branch VASCEPA 1 Yes [id number] TAKE 3 U nivers gram 9-10 CAPSULES ity of capsule 00:00: BY MOUTH [place] EVERY DAY Medical Branch VASCEPA 1 2020-0 Yes [id number] TAKE 3 U nivers gram 9-10 CAPSULES ity of capsule 00:00: BY MOUTH [place] EVERY DAY Medical Branch VASCEPA 1 2020-0 Yes [id number] TAKE 3 U nivers gram 9-10 CAPSULES ity of capsule 00:00: BY MOUTH [place] EVERY DAY Medical Branch VASCEPA 1 2020-0 Yes [id number] TAKE 3 U nivers gram 9-10 CAPSULES ity of capsule 00:00: BY MOUTH [place] EVERY DAY Medical Branch VASCEPA 1 2020-0 Yes [id number] TAKE 3 U nivers gram 9-10 CAPSULES ity of capsule 00:00: BY MOUTH [place] EVERY DAY Medical Branch icosapent 2020-0 2020- No [id number] 3g Take 3 Univers ethyL 6-02 09-10 capsules ity of (VASCEPA) 1 00:00: 00:00 by mouth [place] gram 00 :00 daily. Medical capsule Branch Lactobacill Yes Take by Un fabiana us 5-27 mouth. ity of acidophilus 22:32: [place] (PROBIOTIC 10 Medical ORAL) Branch MULTIVITAMI Yes Take by Un fabiana N ORAL 5-27 mouth. ity of 22:32: [place] [address] Medical Branch multivitami Yes Take by Un fabiana n with 5-27 mouth. ity of minerals 22:32: [place] (HAIR,SKIN 10 Medical AND NAILS Branch ORAL) Lactobacill Yes Take by Un fabiana us 5-27 mouth. ity of acidophilus 17:32: [place] (PROBIOTIC 10 Medical ORAL) Branch MULTIVITAMI Yes Take by Un [place] N ORAL 5-27 mouth. ity of 17:32: [place] [address] Medical Branch multivitami Yes Take by Un fabiana n with 5-27 mouth. ity of minerals 17:32: [place] (HAIR,SKIN 10 Medical AND NAILS Branch ORAL) Lactobacill Yes Take by Un [place] us 5-27 mouth. ity of acidophilus 17:32: [place] (PROBIOTIC 10 Medical ORAL) Branch MULTIVITAMI Yes Take by Un [place] N ORAL 5-27 mouth. ity of 17:32: [place] 10 Medical Branch multivitami 0 Yes Take by Un fabiana n with 5-27 mouth. ity of minerals 17:32: [place] (HAIR,SKIN 10 Medical AND NAILS Branch ORAL) Lactobacill 0 Yes Take by Un [place] us 5-27 mouth. ity of acidophilus 17:32: [place] (PROBIOTIC 10 Medical ORAL) Branch MULTIVITAMI Yes Take by Un [place]iana N ORAL 5-27 mouth. ity of 17:32: [place] 10 Medical Branch multivitami Yes Take by Un fabiana n with 5-27 mouth. ity of minerals 17:32: [place] (HAIR,SKIN 10 Medical AND NAILS Branch ORAL) Lactobacill Yes Take by Un [place] us 5-27 mouth. ity of acidophilus 17:32: [place] (PROBIOTIC 10 Medical ORAL) Branch MULTIVITAMI Yes Take by Un fabiana N ORAL 5-27 mouth. ity of 17:32: [place] 10 Medical Branch multivitami Yes Take by Un fabiana n with 5-27 mouth. ity of minerals 17:32: [place] (HAIR,SKIN 10 Medical AND NAILS Branch ORAL) Lactobacill Yes Take by Un fabiana us 5-27 mouth. ity of acidophilus 17:32: [place] (PROBIOTIC 10 Medical ORAL) Branch MULTIVITAMI Yes Take by Un fabiana N ORAL 5-27 mouth. ity of 17:32: [place] 10 Medical Branch multivitami Yes Take by Un fabiana n with 5-27 mouth. ity of minerals 17:32: [place] (HAIR,SKIN 10 Medical AND NAILS Branch ORAL) glimepiride 0 Yes 4mg Take 1 Univ ers 4 mg tablet 5-02 tablet by ity of 00:00: mouth 2 (two) Medical times Branch daily with meals. glimepiride 2020-0 Yes 4mg Take 1 Univ ers 4 mg tablet 5-02 tablet by ity of 00:00: mouth 2 (two) Medical times Branch daily with meals. glimepiride 2020-0 Yes 4mg Take 1 Univ ers 4 mg tablet 5-02 tablet by ity of 00:00: mouth 2 (two) Medical times Branch daily with meals. glimepiride 0 Yes 4mg Take 1 Univ ers 4 mg tablet 5-02 tablet by ity of 00:00: mouth 2 (two) Medical times Branch daily with meals. glimepiride 2020-0 Yes 4mg Take 1 Univ ers 4 mg tablet 5-02 tablet by ity of 00:00: mouth 2 (two) Medical times Branch daily with meals. glimepiride 0 Yes 4mg Take 1 Univ ers 4 mg tablet 5-02 tablet by ity of 00:00: mouth 2 (two) Medical times Branch daily with meals. insulin Yes [id number] 35U inject 35 Univers degludec 4-30 Units ity of (TRESIBA 00:00: [place] FLEXTOUCH 00 skin 2 Medical U-100) 100 (two) Branch unit/mL (3 times mL) InPn daily. atorvastati Yes 40mg Take 1 Univ ers n 40 mg 4-30 tablet by ity of tablet 00:00: mouth at [place] bedtime. Medical Branch fenofibrate Yes 134mg Take 1 Uni vers micronized 4-30 capsule by ity of 134 mg 00:00: mouth [place] 00 daily. Medical Branch metFORMIN Yes [id number] 1000mg Take 1 Univers 1,000 mg 4-30 tablet by ity of tablet 00:00: mouth (two) Medical times Branch daily with meals. blood sugar 0 Yes [id number] Use daily Univers diagnostic 4-30 Dx E11.65 ity of (ONETOUCH 00:00: [place] VERIO TEST 00 Medical STRIPS) Branch strip lancets 2020-0 Yes [id number] Use daily Univers (ONE TOUCH 4-30 Dx E11.65 ity of DELICA) 33 00:00: [place] gauge Misc 00 Medical Branch gabapentin 2020-0 Yes [id number] 600mg Take 1 Univers 600 mg 4-30 tablet by ity of tablet 00:00: mouth 2 (two) Medical times Branch daily. lisinopriL 0 Yes [id number] 2.5mg Take 1 Univers 2.5 mg 4-30 tablet by ity of tablet 00:00: mouth [place] 00 daily. Medical Branch insulin 0 Yes [id number] 35U inject 35 Univers degludec 4-30 Units ity of (TRESIBA 00:00: [place] FLEXTOUCH 00 skin 2 Medical U-100) 100 (two) Branch unit/mL (3 times mL) InPn daily. atorvastati Yes 40mg Take 1 Univ ers n 40 mg 4-30 tablet by ity of tablet 00:00: mouth at [place] 00 bedtime. Medical Branch fenofibrate Yes 134mg Take 1 Uni vers micronized 4-30 capsule by ity of 134 mg 00:00: mouth [place] capsule 00 daily. Medical Branch metFORMIN Yes [id number] 1000mg Take 1 Univers 1,000 mg 4-30 tablet by ity of tablet 00:00: mouth 2 [place] 00 (two) Medical times Branch daily with meals. blood sugar Yes [id number] Use daily Univers diagnostic 4-30 Dx E11.65 ity of (ONETOUCH 00:00: [place] VERIO TEST 00 Medical STRIPS) Branch strip lancets Yes [id number] Use daily Univers (ONE TOUCH 4-30 Dx E11.65 ity of DELICA) 33 00:00: [place] gauge Misc 00 Medical Branch gabapentin Yes [id number] 600mg Take 1 Univers 600 mg 4-30 tablet by ity of tablet 00:00: mouth 2 [place] 00 (two) Medical times Branch daily. lisinopriL Yes [id number] 2.5mg Take 1 Univers 2.5 mg 4-30 tablet by ity of tablet 00:00: mouth [place] 00 daily. Medical Branch insulin Yes [id number] 35U inject 35 Univers degludec 4-30 Units ity of (TRESIBA 00:00: [place] FLEXTOUCH 00 skin 2 Medical U-100) 100 (two) Branch unit/mL (3 times mL) InPn daily. atorvastati Yes 40mg Take 1 Univ ers n 40 mg 4-30 tablet by ity of tablet 00:00: mouth at [place] 00 bedtime. Medical Branch fenofibrate Yes 134mg Take 1 Uni vers micronized 4-30 capsule by ity of 134 mg 00:00: mouth [place] capsule 00 daily. Medical Branch metFORMIN Yes [id number] 1000mg Take 1 Univers 1,000 mg 4-30 tablet by ity of tablet 00:00: mouth 2 (two) Medical times Branch daily with meals. blood sugar 0 Yes [id number] Use daily Univers diagnostic 4-30 Dx E11.65 ity of (ONETOUCH 00:00: [place] VERIO TEST 00 Medical STRIPS) Branch strip lancets 0 Yes [id number] Use daily Univers (ONE TOUCH 4-30 Dx E11.65 ity of DELICA) 33 00:00: [place] [facility] 00 Medical Branch gabapentin Yes [id number] 600mg Take 1 Univers 600 mg 4-30 tablet by ity of tablet 00:00: mouth 2 [place] (two) Medical times Branch daily. lisinopriL Yes [id number] 2.5mg Take 1 Univers 2.5 mg 4-30 tablet by ity of tablet 00:00: mouth [place] 00 daily. Medical Branch insulin Yes [id number] 35U inject 35 Univers degludec 4-30 Units ity of (TRESIBA 00:00: [place] FLEXTOUCH 00 skin 2 Medical U-100) 100 (two) Branch unit/mL (3 times mL) InPn daily. atorvastati Yes 40mg Take 1 Univ ers n 40 mg 4-30 tablet by ity of tablet 00:00: mouth at [place] 00 bedtime. Medical Branch fenofibrate Yes 134mg Take 1 Uni vers micronized 4-30 capsule by ity of 134 mg 00:00: mouth [place] capsule 00 daily. Medical Branch metFORMIN Yes [id number] 1000mg Take 1 Univers 1,000 mg 4-30 tablet by ity of tablet 00:00: mouth 2 [place] (two) Medical times Branch daily with meals. blood sugar 0 Yes [id number] Use daily Univers diagnostic 4-30 Dx E11.65 ity of (ONETOUCH 00:00: [place] VERIO TEST 00 Medical STRIPS) Branch strip lancets 0 Yes [id number] Use daily Univers (ONE TOUCH 4-30 Dx E11.65 ity of DELICA) 33 00:00: [place] gauge Misc 00 Medical Branch gabapentin 0 Yes [id number] 600mg Take 1 Univers 600 mg 4-30 tablet by ity of tablet 00:00: mouth 2 [place] (two) Medical times Branch daily. lisinopriL 0 Yes [id number] 2.5mg Take 1 Univers 2.5 mg 4-30 tablet by ity of tablet 00:00: mouth [place] 00 daily. Medical Branch insulin 0 Yes [id number] 35U inject 35 Univers degludec 4-30 Units ity of (TRESIBA 00:00: [place] FLEXTOUCH 00 skin 2 Medical U-100) 100 (two) Branch unit/mL (3 times mL) InPn daily. atorvastati Yes 40mg Take 1 Univ ers n 40 mg 4-30 tablet by ity of tablet 00:00: mouth at [place] [id number] bedtime. Medical Branch fenofibrate 0 Yes 134mg Take 1 Uni vers micronized 4-30 capsule by ity of 134 mg 00:00: mouth [facility] 00 daily. Medical Branch metFORMIN Yes [id number] 1000mg Take 1 Univers 1,000 mg 4-30 tablet by ity of tablet 00:00: mouth 2 [place] 00 (two) Medical times Branch daily with meals. blood sugar Yes [id number] Use daily Univers diagnostic 4-30 Dx E11.65 ity of (ONETOUCH 00:00: [place] VERIO TEST 00 Medical STRIPS) Branch strip lancets 2020-0 Yes [id number] Use daily Univers (ONE TOUCH 4-30 Dx E11.65 ity of DELICA) 33 00:00: [facility] 00 Medical Branch gabapentin 0 Yes [id number] 600mg Take 1 Univers 600 mg 4-30 tablet by ity of tablet 00:00: mouth 2 [place] 00 (two) Medical times Branch daily. lisinopriL 2020-0 Yes [id number] 2.5mg Take 1 Univers 2.5 mg 4-30 tablet by ity of tablet 00:00: mouth [place] 00 daily. Medical Branch insulin 0 Yes [id number] 35U inject 35 Univers degludec 4-30 Units ity of (TRESIBA 00:00: [place] FLEXTOUCH 00 skin 2 Medical U-100) 100 (two) Branch unit/mL (3 times mL) InPn daily. atorvastati Yes 40mg Take 1 Univ ers n 40 mg 4-30 tablet by ity of tablet 00:00: mouth at [place] 00 bedtime. Medical Branch fenofibrate Yes 134mg Take 1 Uni vers micronized 4-30 capsule by ity of 134 mg 00:00: mouth [place] capsule 00 daily. Medical Branch metFORMIN Yes [id number] 1000mg Take 1 Univers 1,000 mg 4-30 tablet by ity of tablet 00:00: mouth 2 [place] 00 (two) Medical times Branch daily with meals. blood sugar Yes [id number] Use daily Univers diagnostic 4-30 Dx E11.65 ity of (ONETOUCH 00:00: [place] VERIO TEST 00 Medical STRIPS) Branch strip lancets Yes [id number] Use daily Univers (ONE TOUCH 4-30 Dx E11.65 ity of DELICA) 33 00:00: [facility] 00 Medical Branch gabapentin Yes [id number] 600mg Take 1 Univers 600 mg 4-30 tablet by ity of tablet 00:00: mouth 2 [place] 00 (two) Medical times Branch daily. lisinopriL Yes [id number] 2.5mg Take 1 Univers 2.5 mg 4-30 tablet by ity of tablet 00:00: mouth [place] 00 daily. Medical Branch FREESTYLE 2020-0 Yes [id number] 1{each} 1 Each Univers BRENDA 14 3-03 every 14 ity of DAY SENSOR 00:00: ([place]teen[place] Kit 00 days. Medical Branch FREESTYLE 2020-0 Yes [id number] 1{each} 1 Each Univers BRENDA 14 3-03 daily. ity of DAY READER 00:00: [facility] 00 Medical Branch FREESTYLE 2020-0 Yes [id number] 1{each} 1 Each Univers BRENDA 14 3-03 every 14 ity of DAY SENSOR 00:00: (fourteen) [place] Kit 00 days. Medical Branch FREESTYLE 2020-0 Yes [id number] 1{each} 1 Each Univers BRENDA 14 3-03 daily. ity of DAY READER 00:00: [facility] 00 Medical Branch FREESTYLE 2020-0 Yes [id number] 1{each} 1 Each Univers BRENDA 14 3-03 every 14 ity of DAY SENSOR 00:00: (fourteen) [place] Kit 00 days. Medical Branch FREESTYLE 2020-0 Yes [id number] 1{each} 1 Each Univers BRENDA 14 3-03 daily. ity of DAY READER 00:00: [facility] 00 Medical Branch FREESTYLE 2020-0 Yes [id number] 1{each} 1 Each Univers BRENDA 14 3-03 every 14 ity of DAY SENSOR 00:00: (fourteen) [place] Kit 00 days. Medical Branch FREESTYLE 2020-0 Yes [id number] 1{each} 1 Each Univers BRENDA 14 3-03 daily. ity of DAY READER 00:00: [facility] 00 Medical Branch FREESTYLE 2020-0 Yes [id number] 1{each} 1 Each Univers BRENDA 14 3-03 every 14 ity of DAY SENSOR 00:00: (fourteen) [place] Kit 00 days. Medical Branch FREESTYLE 2020-0 Yes [id number] 1{each} 1 Each Univers BRENDA 14 3-03 daily. ity of DAY READER 00:00: [facility] 00 Medical Branch FREESTYLE 2020-0 Yes [id number] 1{each} 1 Each Univers BRENDA 14 3-03 every 14 ity of DAY SENSOR 00:00: (fourteen) [place] Kit 00 days. Medical Branch FREESTYLE 2020-0 Yes [id number] 1{each} 1 Each Univers BRENDA 14 3-03 daily. ity of DAY READER 00:00: [facility] Medical Branch traMADol 2018-07 Yes [id number] 50mg Take 1 Uni vers (ULTRAM) 50 2-28 tablet by ity of mg tablet 00:00: mouth [place] 00 every 6 Medical (six) Branch hours as needed for Pain (scale 7-10). ondansetron 2018-07 Yes [id number] 4mg Take 1 Univers (ZOFRAN) 4 2-28 tablet by ity of mg tablet 00:00: mouth [place] [address] every 8 Medical (eight) Branch hours as needed for Nausea and Vomiting (N/V). ondansetron 2018-07 Yes [id number] 4mg Take 1 Univers (ZOFRAN) 4 2-28 tablet by ity of mg tablet 00:00: mouth [place] [address] every 8 Medical (eight) Branch hours as needed for Nausea and Vomiting (N/V). ondansetron 2018-07 Yes [id number] 4mg Take 1 Univers (ZOFRAN) 4 2-28 tablet by ity of mg tablet 00:00: mouth [place] 00 every 8 Medical (eight) Branch hours as needed for Nausea and Vomiting (N/V). ondansetron 2018-07 Yes [id number] 4mg Take 1 Univers (ZOFRAN) 4 2-28 tablet by ity of mg tablet 00:00: mouth [place] 00 every 8 Medical (eight) Branch hours as needed for Nausea and Vomiting (N/V). ondansetron 2018-07 Yes [id number] 4mg Take 1 Univers (ZOFRAN) 4 2-28 tablet by ity of mg tablet 00:00: mouth [place] 00 every 8 Medical (eight) Branch hours as needed for Nausea and Vomiting (N/V). ondansetron 2018-07 Yes [id number] 4mg Take 1 Univers (ZOFRAN) 4 2-28 tablet by ity of mg tablet 00:00: mouth [place] 00 every 8 Medical (eight) Branch hours as needed for Nausea and Vomiting (N/V). traMADol 2018-07- No [id number] 50mg Take 1 Un fabiana (ULTRAM) 50 2-28 11-20 tablet by it y of mg tablet 00:00: 00:00 mouth [place] 00 :00 every 6 Medical (six) Branch hours as needed for Pain (scale 7-10). hydrOXYzine Yes [id number] 10mg Take 1 Univers 10 mg 9-13 tablet by ity of tablet 00:00: mouth [place] 00 every 6 Medical (six) Branch hours. hydrOXYzine Yes [id number] 10mg Take 1 Univers 10 mg 9-13 tablet by ity of tablet 00:00: mouth [place] 00 every 6 Medical (six) Branch hours. hydrOXYzine 2018- Yes [id number] 10mg Take 1 Univers 10 mg 9-13 tablet by ity of tablet 00:00: mouth [place] 00 every 6 Medical (six) Branch hours. hydrOXYzine 2018- Yes [id number] 10mg Take 1 Univers 10 mg 9-13 tablet by ity of tablet 00:00: mouth [place] 00 every 6 Medical (six) Branch hours. hydrOXYzine 2018- Yes [id number] 10mg Take 1 Univers 10 mg 9-13 tablet by ity of tablet 00:00: mouth [place] 00 every 6 Medical (six) Branch hours. hydrOXYzine 2018-0 Yes [id number] 10mg Take 1 Univers 10 mg 9-13 tablet by ity of tablet 00:00: mouth [place] 00 every 6 Medical (six) Branch hours. Lancets & 2013- Yes Univers Blood 2-14 ity of Glucose 00:00: [place] Strips (ONE 00 Medical TOUCH Branch [facility]- Yes Univers Blood 2-14 ity of Glucose 00:00: [place] Strips (ONE 00 Medical TOUCH Branch COMBO) [facility] & 2012- Yes Univers Blood 2-14 ity of Glucose 00:00: [place] Strips (ONE 00 Medical TOUCH Branch COMBO) [facility] & 2012- Yes Univers Blood 2-14 ity of Glucose 00:00: [place] Strips (ONE 00 Medical TOUCH Branch COMBO) [facility] & 2012- Yes Univers Blood 2-14 ity of Glucose 00:00: [place] Strips (ONE 00 Medical TOUCH Branch COMBO) [facility] & 2012- Yes Univers Blood 2-14 ity of Glucose 00:00: [place] Strips (ONE 00 Medical TOUCH Branch COMBO) [facility] Blood-Gluco Yes Univer s se Meter 6-05 ity of (BLOOD 00:00: [place] GLUCOSE 00 Medical MONITORING) Branch Kit Blood-Gluco Yes Univer s se Meter 6-05 ity of (BLOOD 00:00: [place] GLUCOSE 00 Medical MONITORING) Branch Kit Blood-Gluco Yes Univer s se Meter 6-05 ity of (BLOOD 00:00: [place] GLUCOSE 00 Medical MONITORING) Branch Kit Blood-Gluco Yes Univer s se Meter 6-05 ity of (BLOOD 00:00: [place] GLUCOSE 00 Medical MONITORING) Branch Kit Blood-Gluco Yes Univer s se Meter 6-05 ity of (BLOOD 00:00: [place] GLUCOSE 00 Medical MONITORING) Branch Kit Blood-Gluco Yes Univer s se Meter 6-05 ity of (BLOOD 00:00: [place] GLUCOSE 00 Medical MONITORING) Branch Kit Immunizations Ordered Filled Immunization Date Status Comments [facility] e Immunization Name Name Pneumococcal 2020-05-21 Completed University o f Polysaccharide, 00:00:00 [place] Med ical PPSV23 (PNEUMOVAX) Branch TDAP 2020-05-21 Completed University of 00:00:00 [facility] Pneumococcal 2020-05-21 Completed University o f Polysaccharide, 00:00:00 [place] Med ical PPSV23 (PNEUMOVAX) Branch TDAP 2020-05-21 Completed University of 00:00:00 [facility] Pneumococcal 2020-05-21 Completed University o f Polysaccharide, 00:00:00 [place] Med ical PPSV23 (PNEUMOVAX) Branch TDAP 2020-05-21 Completed University of 00:00:00 [facility] Pneumococcal 2020-05-21 Completed University o f Polysaccharide, 00:00:00 [place] Med ical PPSV23 (PNEUMOVAX) Branch TDAP 2020-05-21 Completed University of 00:00:00 [facility] Pneumococcal 2020-05-21 Completed University o f Polysaccharide, 00:00:00 [place] Med ical PPSV23 (PNEUMOVAX) Branch TDAP 2020-05-21 Completed University of 00:00:00 [facility] Pneumococcal 2020-05-21 Completed University o f Polysaccharide, 00:00:00 [place] Med ical PPSV23 (PNEUMOVAX) Branch TDAP 2020-05-21 Completed University of 00:00:00 [facility] MMR 2013-07-25 Completed University of 00:00:00 [facility] MMR 2013-07-25 Completed University of 00:00:00 [facility] MMR 2013-07-25 Completed University of 00:00:00 [facility] MMR 2013-07-25 Completed University of 00:00:00 [facility] MMR 2013-07-25 Completed University of 00:00:00 [facility] MMR 2013-07-25 Completed University of 00:00:00 [facility] TDAP 2013-05-21 Completed University of 00:00:00 [facility] TDAP 2013-05-21 Completed University of 00:00:00 [facility] TDAP 2013-05-21 Completed University of 00:00:00 [facility] TDAP 2013-05-21 Completed University of 00:00:00 [facility] TDAP 2013-05-21 Completed University of 00:00:00 [facility] TDAP 2013-05-21 Completed University of 00:00:00 [facility] Influenza Virus 2013-03-19 Completed Universit y of Vaccine 00:00:00 [facility] Influenza Virus 2013-03-19 Completed Universit y of Vaccine 00:00:00 [facility] Influenza Virus 2013-03-19 Completed Universit y of Vaccine 00:00:00 [facility] Influenza Virus 2013-03-19 Completed Universit y of Vaccine 00:00:00 [facility] Influenza Virus 2013-03-19 Completed Universit y of Vaccine 00:00:00 [facility] Influenza Virus 2013-03-19 Completed Universit y of Vaccine 00:00:00 [facility] Rubella 2008-04-17 Completed University of 00:00:00 [facility] Rubella 2008-04-17 Completed University of 00:00:00 [facility] Rubella 2008-04-17 Completed University of 00:00:00 [facility] Rubella 2008-04-17 Completed University of 00:00:00 [facility] Rubella 2008-04-17 Completed University of 00:00:00 [facility] Rubella 2008-04-17 Completed University of 00:00:00 [facility] Td 2004-07-11 Completed University of 00:00:00 [facility] Td 2004-07-11 Completed University of 00:00:00 [facility] Td 2004-07-11 Completed University of 00:00:00 [facility] Td 2004-07-11 Completed University of 00:00:00 [facility] Td 2004-07-11 Completed University of 00:00:00 [facility] Td 2004-07-11 Completed University of 00:00:00 [facility] Vital Signs Vital Name Observation Time Observation Value Comments Source Systolic blood 2021-10-17 02:05:00 117 mm[Hg] Univer sity of pressure [facility] Diastolic blood 2021-10-17 02:05:00 63 mm[Hg] Unive rsity of pressure [facility] Heart rate 2021-10-17 02:05:00 76 /min [facility] Respiratory rate 2021-10-17 02:05:00 18 /min [facility] Oxygen saturation in 2021-10-17 02:05:00 98 /min [facility] Arterial blood by [facility] Pulse oximetry Branch Body temperature 2021-10-16 22:30:00 37.33 Lorenza [facility] Body weight 2021-10-16 21:38:00 103.42 kg [facility] Branch BMI 2021-10-16 21:38:00 37.94 kg/m2 Universi ty of [place] [facility] Systolic blood 2021-09-22 17:00:00 108 mm[Hg] Univer sity of pressure [place] [facility] Diastolic blood 2021-09-22 17:00:00 77 mm[Hg] Unive rsity of pressure [place] [facility] Heart rate 2021-09-22 17:00:00 90 /min Universi ty of [place] [facility] Oxygen saturation in 2021-09-22 17:00:00 97 /min University of Arterial blood by [place] [employer] Pulse oximetry Branch Respiratory rate 2021-09-22 15:00:00 18 /min Univ ersity of [place] [facility] Body temperature 2021-09-22 14:52:00 37.11 Lorenza Univ ersity of [place] [facility] Body weight 2021-09-22 14:52:00 103.42 kg Universi ty of [place] [facility] BMI 2021-09-22 14:52:00 37.94 kg/m2 Universi ty of [place] [facility] Systolic blood 2021-06-18 12:00:00 142 mm[Hg] Univer sity of pressure [place] [facility] Diastolic blood 2021-06-18 12:00:00 94 mm[Hg] Unive rsity of pressure [place] [facility] Heart rate 2021-06-18 12:00:00 98 /min Universi ty of [place] [facility] Body temperature 2021-06-18 12:00:00 36.56 Lorenza Univ ersity of [place] [facility] Respiratory rate 2021-06-18 12:00:00 13 /min Univ ersity of [place] [facility] Oxygen saturation in 2021-06-18 12:00:00 95 /min University of Arterial blood by [employer] Pulse oximetry Branch Body height 2021-06-18 10:37:00 165.1 cm Universi ty of [place] [facility] Body weight 2021-06-18 10:37:00 107.502 kg Universi ty of [place] [facility] BMI 2021-06-18 10:37:00 39.44 kg/m2 Universi ty of [place] [facility] Systolic blood 2021-05-31 01:34:00 139 mm[Hg] Univer sity of pressure [place] [facility] Diastolic blood 2021-05-31 01:34:00 90 mm[Hg] [facility] Heart rate 2021-05-31 01:34:00 112 /min [facility] Respiratory rate 2021-05-31 01:34:00 20 /min [facility] Oxygen saturation in 2021-05-31 01:34:00 98 /min [facility] blood by [facility] Pulse oximetry Branch Body weight 2021-05-30 21:47:00 107.502 kg [facility] BMI 2021-05-30 21:47:00 40.68 kg/m2 [facility] Procedures Procedure Date / Time Performed Performing Clinician Sourc e POCT GLUCOSE 2021-10-17 01:49:00 Beatriz Eduardo [facility] (AUTOMATED) [facility] POCT GLUCOSE(AGE 2021-10-17 00:41:00 Beatriz Eduardo [facility] >30DAYS) [facility] POCT GLUCOSE 2021-10-17 00:40:00 Beatriz Eduardo [facility] (AUTOMATED) [facility] BLOOD CULTURE SCREEN 2021-10-16 23:26:00 Beatriz Eduardo [facility] BLOOD CULTURE SCREEN 2021-10-16 23:03:00 Beatriz Eduardo [facility] TROPONIN I 2021-10-16 23:03:[address] [facility] COMP. METABOLIC PANEL 2021-10-16 23:03:00 Beatriz Eduardo [facility] ([id number]) [facility] CBC WITH DIFF 2021-10-16 23:03:[address] [facility] URINALYSIS 2021-10-16 23:03:[address] [facility] N-TERMINAL PRO-BNP 2021-10-16 23:03:00 Beatriz Eduardo [facility] LACTIC ACID WHOLE 2021-10-16 23:01:00 Beatriz Eduardo [facility] CT ABDOMEN PELVIS WO 2021-10-16 22:40:13 Beatriz Eduardo [facility] POCT TEST 2021-10-16 22:34:00 Beatriz Eduardo [facility] CONSENT/REFUSAL FOR 2021-10-16 21:34:04 Doctor Unassigned, No [facility] [place] [facility] DIAGNOSIS AND Name [facility] [place] TREATMENT CT ABDOMEN PELVIS WO 2021-09-22 15:59:44 Jn Gallagher [facility] CONTRAST [facility] POCT TEST 2021-09-22 15:18:00 Jn Gallagher [facility] COMP. METABOLIC PANEL 2021-09-22 15:16:00 Singer [facility] ([id number]) [facility] CBC WITH DIFF 2021-09-22 15:16[facility] 2021-09-22 14:58:00 Singer [facility] CONSENT/REFUSAL FOR 2021-09-22 14:47:03 [facility]assigned, [facility] Name [facility] TREATMENT POCT GLUCOSE 2021-06-18 13:04:00 Fozia Jang [facility] (AUTOMATED) [facility] CT ABDOMEN PELVIS WO 2021-06-18 12:58:31 Fozia Jang [facility] POCT TEST 2021-06-18 11:06:00 Fozia Jang [facility] CREATINE KINASE 2021-06-18 10:50:00 Lionel Park [facility] COMP. METABOLIC PANEL 2021-06-18 10:50:00 Fozia Jang [facility] ([id number]) Medical Branch CBC WITH DIFF 2021-06-18 10:50:[address] [facility] URINALYSIS 2021-06-18 10:50:[address] [facility] RAPID INFLUENZA A/B 2021-06-18 10:50:00 Fozia Jang [facility] COVID-19 (ID NOW RAPID 2021-06-18 10:50:00 Fozia Jagn [facility] TESTING) [facility] Branch NOTICE OF PRIVACY 2021-06-18 10:24:00 Doctor Unassigned, No Univ ersity of [place] PRACTICES Name Medical Branch CONSENT/REFUSAL FOR 2021-06-18 10:21:45 Doctor Unassigned, No Un iversity of [place] DIAGNOSIS AND Name Medical Branch TREATMENT CT ABDOMEN PELVIS W 2021-05-30 23:52:43 Mary Espinosa [facility] CONTRAST Medical Branch CT HEAD WO CONTRAST 2021-05-30 23:52:13 Mary Espinosa [facility] Medical [place] XR CHEST 1 VW 2021-05-30 22:38:06 Mary Espinosa [place] [facility] XR HAND 3+ VW LEFT 2021-05-30 22:38:[address] [facility] XR FOREARM 2 VW LEFT 2021-05-30 22:28:08 Mary Espinosa [facility] CONSENT/REFUSAL FOR 2021-05-30 21:39:04 Doctor Unassigned, No [facility] [place] DIAGNOSIS AND Name Medical Branch TREATMENT 83.71 2010-08-05 00:00:00 [facility] 77.98 2010-08-05 00:00:00 [facility] Encounters Start End Encounter Admission Attending Care Care Encounter Source Date/Time Date/Time Type Type Clinicians Facility Department ID 2021-05-10 Emergency [facility] [id number] Univers 21:18:12 ity [facility] 2021-05-10 Emergency [facility] [id number] Univers 15:04:50 ity [facility] 2021-05-08 Emergency [facility] [id number] [facility] Inpatient Bebeto Valderrama HCAT[facility] RADI [id number] [facility] 15:30:00 [id number] [place] [facility] 2020-08-02 Inpatient HCATO CARISSA [id number] [facility] 13:01:00 [id number] [place] [facility] 2020-02-13 Inpatient HCATO CARISSA [id number] [facility] 19:15:00 [id number] [place] [facility] 2020-01-16 Inpatient ERICA Katie, [facility] SURG [id number] [facility] 16:00:00 Elbert [id number] [place] [facility] 2021-10-16 2021-10-16 Emergency [facility] [id number] Univers 16:39:00 22:23:00 BEATRIZ diaz [facility] 2021-10-16 2021-10-16 [facility] [id number] Univers 16:39:00 22:23:00 Beat[facility] [id number] [facility]y [facility] [id number] [facility] [id number] [address] 2021-09-22 2021-09-22 Emergency X [facility] ERT [id number] Univers 09:56:00 12:05:00 JN diaz [facility] 2021-09-22 2021-09-22 Emergency [facility] [id number] Univers 09:56:00 12:05:00 Jnyariel [facility] [id number] i ty [facility] [id number] [facility] [id number] [address] 2021-08-20 2021-08-20 Cam [facility] [id number] Univers 00:00:00 00:00:00 [facility] [id number] it y kristyn [place] [id number] Blake as DANIELITO?BLEA [id number] [address] MEDICAL OFFICE BUILDING 2021-07-31 2021-07-31 Outpatient Bebeto Valderrama DAYS [id number] [facility] 05:47:00 05:47:00 [place] [facility] 2021-07-31 2021-07-31 Outpatient Bebeto Valderrama [facility] [id number] [facility] 05:47:00 05:47:00 00 [place] [facility] 2021-06-18 2021-06-18 Emergency [facility] ERT [id number] Univers 04:31:00 08:25:00 FOZIA emily [facility] 2021-06-18 2021-06-18 Emergency [facility] [id number] Univers 04:31:00 08:25:00 Fozia Nakul GAG[place] [id number] ity of [place] [id number] [facility] [id number] [address] 2021-06-10 2021-06-10 Outpatient [facility] [id number] 827 [place] 00:00:00 00:00:[address] 2021-05-30 2021-05-30 Emergency [facility] ERT [id number] Univers 15:49:00 19:42:00 [facility] 2021-05-30 2021-05-30 Emergency [facility] [id number] Univers 15:49:00 19:42:00 Mary Mota SUNIL [id number] i ty of [place] [id number] [facility] [id number] [address] 2021-03-17 2021-03-17 Refill [facility] [id number] Univers 00:00:00 00:00:00 Doron Banuelos [id number] i ty of [place] [id number] [facility] [id number] Ak dical [facility] 220 [facility] 2021-02-27 2021-02-27 [facility] [id number] Univers 15:00:00 15:00:00 DORON [id number] [facility] 2021-02-27 2021-02-27 [facility] [id number] Univers 15:00:00 15:00:00 DORON [facility] 2021-02-19 2021-02-19 Outpatient Anupama GONZALEZ [facility] [id number] Univers 11:30:00 11:30:00 SENDIL [id number] [facility] 2021-01-02 2021-01-02 Outpatient R ROBBIE [facility] [id number] Univers 11:15:00 11:15:00 KENNARD [id number] [facility] 2020-12-23 2020-12-23 Outpatient R ROBBIE [facility] [id number] Univers 16:00:00 16:00:00 FABIO [id number] [facility] 2020-12-23 2020-12-23 Outpatient R ROBBIE [facility] [id number] Univers 16:00:00 16:00:00 [facility] 2020-12-19 2020-12-19 Outpatient R ROBBIE [facility] [id number]-20 Univers 11:00:00 11:00:00 FABIO [id number] [facility] 2020-12-10 2020-12-10 Outpatient R LISA [facility] [id number] Univers 09:00:00 09:53:04 SENDIL [facility] 2020-12-10 2020-12-10 Outpatient R ILSA [facility] [id number] Univers 09:00:00 09:00:00 SENDIL [id number] [facility] 2020-11-07 2020-11-07 Outpatient R VALENTINE [facility] [id number] Univers 13:30:00 13:30:00 DORON [facility] 2020-06-02 2020-06-02 Telephone [facility] [id number] 00:00:00 00:00:00 Lily Banuelos [id number] [place] [id number] [facility] [id number] [address] 2020-05-29 2020-05-29 Outpatient R LUIS [facility] [id number] Univers 15:15:00 15:15:00 LESLEE [id number] [facility] 2020-05-29 2020-05-29 [facility] [id number] Univers 15:15:00 15:15:00 LESLEE [facility] 2020-05-27 2020-05-27 Office [facility] [id number] 10:59:24 11:54:17 Visit Lily [id number] [place] [id number] [id number] 134 [facility] 2020-05-27 2020-05-27 Outpatient R ADRIENNE [facility] [id number] Univers 10:45:00 10:45:00 LILY [id number] y [facility] 2020-05-27 2020-05-27 Outpatient R ADRIENNE [facility] [id number] Univers 10:45:00 10:45:00 LILY [facility] 2020-05-27 2020-05-27 Orders Doctor ARLENE [id number] 00:00:00 00:00:00 Only Unassigned, BENITA [id number] Sloan [facility] [id number] 2020-01-10 2020-01-10 Outpatient [facility] HC[facility] LABO [id number] [facility] 18:46:00 18:46:00 Tomiko 34481 [facility] 2020-01-10 2020-01-10 [facility] HCAT[facility] SURG [id number] [facility] 16:00:00 16:00:00 Tomiko [id number] [facility] 2020-01-04 2020-01-04 Outpatient Fukuda, HCATO RADI [id number] [facility] 13:00:00 13:00:00 Tomiko 73013 [facility] 2019-12-12 2019-12-12 Outpatient R CORINNE [facility] [id number] Univers 16:30:00 16:30:00 STANISLAW [id number] [facility] 2019-12-12 2019-12-12 Outpatient R CORINNE [facility] [id number] Univers 16:30:00 16:30:00 STANISLAW [facility] 2019-12-07 2019-12-07 Outpatient Anupama THOMPSON [facility] [id number] Univers 09:00:00 09:00:00 DORON diaz [facility] 2019-11-22 2019-11-22 Outpatient ERNST, [facility] [id number] [address] [place] [address] 00:00:00 00:00:00 SILVINA porras 2019-11-06 2019-11-06 Outpatient ANTOSH, [facility] [id number] [address] [place] 00:00:00 00:00:00 SILVINA [address] 2019-11-01 2019-11-01 Outpatient ANTOSH, [facility] [id number] 7[address] [place] 00:00:00 00:00:00 SILVINA [address] 2019-10-30 2019-10-30 Outpatient GALAN, [facility] [id number] [address] [place] 00:00:00 00:00:00 ABHIJIT [address] 2019-10-18 2019-10-18 Outpatient ANTOSH, [facility] [id number] 079 [place] 00:00:00 00:00:00 SILVINA [address] 2019-10-02 2019-10-02 Outpatient ANTOSH, [facility] [id number] 696 [place] 00:00:00 00:00:00 SILVINA [address] 2019-10-01 2019-10-01 Outpatient ANTOSH, [facility] [id number] 639 [place] 00:00:00 00:00:00 SILVINA [address] 2019-09-19 2019-09-19 Outpatient ANTOSH, [facility] [id number] 779 [place] 00:00:00 00:00:00 ISLVINA [address] 2019-09-11 2019-09-11 [facility] [id number] -[id number] Univers 10:30:00 10:30:00 STANISLAW [id number] [facility] 2019-09-11 2019-09-11 [facility] [id number] Univers 10:30:00 10:30:00 STANISLAW [facility] 2019-09-10 2019-09-10 Outpatient GALAN, [facility] [id number] 503 [place] 00:00:00 00:00:00 ABHIJIT [address] 2019-09-10 2019-09-10 Outpatient ANTOSH, [facility] [id number] 217 [place] 00:00:00 00:00:00 SILVINA [address] 2019-09-10 2019-09-10 Outpatient ANTOSH, [facility] [id number] 783 [place] 00:00:00 00:00:00 SILVINA [address] 2019-08-23 2019-08-23 Outpatient R ADRIENNE [facility] [id number] Univers 16:15:00 10:31:44 LILY isaac [facility] 2019-08-15 2019-08-15 Outpatient R ADRIENNE [facility] [id number] Univers 09:15:00 09:44:35 LILY [facility] 2019-07-07 2019-07-07 Emergency X LAINE, [facility] ERT [id number] Univers 10:13:53 13:06:00 [facility] 2010-08-05 2010-08-07 Inpatient OUTP Kit Lopez HCATO SURG [id number] [facility] 16:20:00 14:00:00 [id number] [facility] Results Test Description Test Time Test Comments Results Result Comments Source CULTURE, URINE 2021-10-25 SPECIMEN NUMBER: [id number] CULTURE, URINE SPECIMEN NUMBER: [id number] SPECIMEN COMMENT: URINE SOURCE: URINE REPORT STATUS: FINAL FINAL REPORT: 10/25/2021 10-50,000 CFU/ML UROGENITAL NORMA PRESENT NO COMMON PATHOGENS VAGINAL PATHOGENS DNA PANEL 2021-10-24 11:55:20 Test Item Value Reference Range Interpretation Comme nts ANDIE SPECIES (test code = NEGATIVE NEGATIVE ) G. VAGINALIS (test code = NEGATIVE NEGATIVE ) T. VAGINALIS (test code = NEGATIVE NEGATIVE UNLESS OTHERWISE INDICATED, ) ALL TESTING [facility]. [address] [place] [address] LABORATORY DIRE CTOR: NOAH DICKENS M.D. CLIA NUMBER [id number] [place]. [id number] POCT GLUCOSE (AUTOMATED)2021-10-17 01:51:54 Test Item Value Reference Range Interpretation Comments POCT GLU (test code = 3040849363) 365 mg/dL 70-110 H Lab Interpretation (test code = Abnormal 85187-3) [facility] GLUCOSE (AUTOMATED)2021-10-17 00:46:51 Test Item Value Reference Range Interpretation Comments POCT GLU (test code = 4460526561) 435 mg/dL 70-110 H Lab Interpretation (test code = Abnormal 69066-4) [facility] GLUCOSE(AGE >30DAYS)2021-10-17 00:41:00 Test Item Value Reference Range Interpretation Comments POCT Glu (age>30days) (test code = 435 mg/dL 70-110 A 3342) Lab Interpretation (test code = Abnormal 31983-6) [facility] [id number] 23:40:42 Test Item Value Reference Interpretation Comments Range TROPONIN I (test 0.001 ng/mL See_Comment [Automated code = 4678078286) message] The system which generated this result transmitted reference range : <=0.034. The reference range was not used to interpret this result as normal/abnormal . CALVIN (test code = Reference (Normal) CALVIN) Range (defined by the 99th percentile reference limit): <= 0.034 ng/mL Note: Cardiac troponin begins to rise 3-4 hours after the onset of ischemia. Repeat in 4-6 hours if the sample was drawn within 3-4 hours of the onset of the symptom and found normal. Diagnosis of myocardial injury is made with acute changes in cTn concentrations with at least one serial sample above the 99th percentile upper reference limit (URL), taken together with the patient's clinical presentation. Biotin has been reported to cause a negative bias, interpret results relative to patient's use of biotin. Lab Interpretation Normal (test code = 67500-5) [facility]MINAL [id number] 23:37:40 Test Item Value Reference Range Interpretation Comments NT-proBNP (test code 20 pg/mL See_Comment [Autom ated = 8579122121) message] The system which generated this result transmitted reference range : <=125. The reference range was not used to interpret this result as normal/abnormal . CALVIN (test code = CALVIN) Biotin has been reported to cause a negative bias, interpret results relative to patient's use of biotin. Lab Interpretation Normal (test code = 50043-5) [facility] METABOLIC PANEL ([id number])2021-10-16 23:29:18 Test Item Value Reference Range Interpretation Comments NA (test code = 134 mmol/L 135-145 L 6931759000) K (test code = 4.4 mmol/L 3.5-5.0 4962764636) CL (test code = 97 mmol/L 98-108 L 6968440946) CO2 TOTAL (test code = 23 mmol/L 23-31 3166577966) AGAP (test code = 2-16 5882432685) BUN (test code = 21 mg/dL 7-23 7817824917) GLUCOSE (test code = 431 mg/dL 70-110 H 0753090213) CREATININE (test code = 0.88 mg/dL 0.50-1.04 3246444208) TOTAL BILI (test code = 0.5 mg/dL 0.1-1.6 1426987286) CALCIUM (test code = 9.2 mg/dL 8.6-10.6 1068703555) T PROTEIN (test code = 7.4 g/dL 6.3-8.2 2276762471) ALBUMIN (test code = 4.7 g/dL 3.5-5.0 3719622180) ALK PHOS (test code = 52 U/L 34-122 9932923680) ALTv (test code = 30 U/L 5-35 2-6) AST(SGOT) (test code = 25 U/L 13-40 8601455757) eGFR (test code = mL/min/1.73m2 8407328348) CALVIN (test code = CALVIN) Association of Glomerular Filtration Rate (GFR) and Staging of Kidney Disease* + --+ --+ ------+| GFR (mL/min/1.73 m2) ?| With Kidney Damage ?| ?Without Kidney Damage+ --------+ --------+ +| ?>90 ?| ?Stage one ?| ? Normal ?+ ---+ ---+ -------+| ?60-89 ?| ?Stage two ?| ? Decreased GFR ? + --+ --+ ------+| ?30-59 ?| ?Stage three ?| ? Stage three ? + --+ --+ ------+| ?15-29 ?| ?Stage four ? | ? Stage four ?+ ---+ ---+ -------+| ?<15 (or dialysis) ? ?| ?Stage five ? | ? Stage five ?+ ---+ ---+ -------+ *Each stage assumes the associated GFR level has been in effect for at least three months. ?Stages 1 to 5, with or without kidney disease, indicate chronic kidney disease. Notes: Determination of stages one and two (with eGFR >59mL/min/1.73 m2) requires estimation of kidney damage for at least three months as defined by structural or functional abnormalities of the kidney, manifested by either:Pathological abnormalities or Markers of kidney damage (including abnormalities in the composition of the blood or urine or abnormalities in imaging tests). Lab Interpretation Abnormal (test code = 71976-7) [facility] WITH [id number] 23:20:10 Test Item Value Reference Range Interpretation Comments WBC (test code = See_Comment [Automated 0090-2) message] The sy stem which generated this result transmitted reference range : 4.30 - 11.10 10*3/?L. The reference range was not used to interpret this result as normal/abnormal . RBC (test code = See_Comment [Automated 789-8) message] The sy stem which generated this result transmitted reference range : 3.93 - 5.25 10*6/?L. The reference range was not used to interpret this result as normal/abnormal . HGB (test code = 12.1 g/dL 11.6-15.0 718-7) HCT (test code = 36.7 % 35.7-45.2 4544-3) MCV (test code = 82.8 fL 80.6-95.5 787-2) MCH (test code = 27.3 pg 25.9-32.8 785-6) MCHC (test code = 33.0 g/dL 31.6-35.1 786-4) RDW-SD (test code = 40.5 fL 39.0-49.9 83278-3) RDW-CV (test code = 13.5 % 12.0-15.5 788-0) PLT (test code = See_Comment [Automated 777-3) message] The sy stem which generated this result transmitted reference range : 166 - 358 10*3/ ?L. The reference r doretha was not used to interpret this result as normal/abnormal . MPV (test code = 9.6 fL 9.5-12.9 17336-4) NRBC/100 WBC (test See_Comment [Automat ed code = 2003081906) message] The system which generated this result transmitted reference range : 0.0 - 10.0 /100 WBCs. The refer ence range was not u sed to interpret th is result as normal/abnormal . NRBC x10^3 (test code <0.01 See_Comment [Auto mated = 3791662908) message] The s ystem which generated this result transmitted reference range : 10*3/?L. The reference range was not used to interpret this result as normal/abnormal . GRAN MAT (NEUT) % 43.2 % (test code = 770-8) IMM GRAN % (test code 0.70 % = 0537875021) LYMPH % (test code = 42.8 % 736-9) MONO % (test code = 9.2 % 5905-5) EOS % (test code = 3.0 % 713-8) BASO % (test code = 1.1 % 706-2) GRAN MAT x10^3(ANC) 3.15 10*3/uL 1.88-7.09 (test code = 0008528770) IMM GRAN x10^3 (test 0.05 10*3/uL 0.00-0.06 code = 2209816148) LYMPH x10^3 (test code 3.12 10*3/uL 1.32-3.29 = 731-0) MONO x10^3 (test code 0.67 10*3/uL 0.33-0.92 = 742-7) EOS x10^3 (test code = 0.22 10*3/uL 0.03-0.39 711-2) BASO x10^3 (test code 0.08 10*3/uL 0.01-0.07 H = 704-7) Lab Interpretation Abnormal (test code = 11809-1) [facility] Hospital[facility]ama[facility] Acid Whole [id number] 23:09:32 Test Item Value Reference Range Interpretation Comments LACTIC ACID (test code = 1.94 mmol/L 0.50-2.20 0143678208) Lab Interpretation (test code = Normal 85107-0) [facility] Hospital[facility]OC[facility] [id number] 22:34:00 Test Item Value Reference Range Interpretation Comments POCT PREG (test code = 1605) Negative On board controls acceptable with Present C Line (test code = 3574) POCT PREG LOT # (test code = 3575) [id number] POCT PREG TEST DATE (test 2023-04-09 code = 3576) Lab Interpretation (test code = Normal 85961-5) [facility] HospitalCULT[facility], [id number] 08:52:36SPECIMEN NUMBER: [id number] CULTURE, URINE SPECIMEN NUMBER: [id number] SPECIMEN COMMENT: URINE SOURCE: URINE REPORT STATUS: FINAL FINAL REPORT: 10/12/2021 >100,000 CFU/ML UROGENITAL NORMA PRESENT NO COMMON PATHOGENS UNLESS OTHERWISE INDICATED, ALL TESTING PERFORMED [facility] [employer] [address] [place] [address] PLASTIC BLOCK BOILER RELINER: NOAH DICKENS M.D. CLIA NUMBER [id number] [place]. [id number] CULTURE, NO SENS 2021-10-08 09:46:36SPECIMEN NUMBER: [id number] URINE CULTURE, NO SENS SPECIMEN NUMBER: [id number] SPECIMEN COMMENT: URINE SOURCE: URINE REPORT STATUS: FINAL FINAL REPORT: 10/08/2021 50-100,000 CFU/ML UROGENITAL NORMA PRESENT NO COMMON PATHOGENSCBC W/AUTO DIFF WITH [id number] 07:54:02 Test Item Value Reference Range Interpretation Comments WBC (test code = 8.4 K/UL 3.5-11.0 1001) RBC (test code = 4.50 M/UL 3.80-5.40 1002) HEMOGLOBIN (test code 12.1 G/DL 11.5-15.5 = 1003) HEMATOCRIT (test code 36.2 % 34.0-45.0 = 1004) MCV (test code = 80.4 fL 80.0-99.0 1005) MCH (test code = 26.9 PG 25.0-33.0 1006) MCHC (test code = 33.4 G/DL 31.0-36.0 1007) RDW (test code = 13.8 % 11.5-15.0 1038) NEUTROPHILS (test 54.8 % code = 1008) LYMPHOCYTES (test 34.0 % code = 1010) MONOCYTES (test code 7.1 % = 1011) EOSINOPHILS (test 3.0 % code = 1012) BASOPHILS (test code 0.6 % = 1013) IMMATURE GRANULOCYTES 0.5 % (test code = 1036) NUCLEATED RBCS (test 0.0 /100 See_Comment [Autom ated code = 1065) WBC'S message] The sy stem which generated this result transmitted reference range : 0.0. The refere nce range was not u sed to interpret th is result as normal/abnormal . PLATELET COUNT (test 268 K/UL 130-400 code = 1015) ABSOLUTE NEUTROPHILS 4.59 K/UL 1.50-7.50 (test code = 1066) ABSOLUTE LYMPHOCYTES 2.84 K/UL 1.00-4.00 (test code = 1067) ABSOLUTE MONOCYTES 0.59 K/UL 0.20-1.00 (test code = 1068) ABSOLUTE EOSINOPHILS 0.25 K/UL 0.00-0.50 (test code = 1040) ABSOLUTE BASOPHILS 0.05 K/UL 0.00-0.20 (test code = 1069) ABS IMMATURE 0.04 K/UL 0.00-0.10 GRANULOCYTES (test code = 1020) ABS NUCLEATED RBCS 0.00 K/UL 0.00-0.11 (test code = 73789) COMPREHENSIVE METABOLIC [id number] 05:34:02 Test Item Value Reference Range Interpretation Comments GLUCOSE (test code = 108 MG/DL 70-99 H 2216) BUN (test code = 17 MG/DL 6-20 2207) CREATININE (test 0.84 MG/DL 0.60-1.30 code = 2214) eGFR (2020 CKD-EPI) 88 >60 (test code = 92883) ML/MIN/1.73 CALC BUN/CREAT (test 20 RATIO 6-28 code = 2235) SODIUM (test code = 141 MEQ/L 881-643 2055) POTASSIUM (test code 4.0 MEQ/L 3.5-5.4 = 2227) CHLORIDE (test code 100 MEQ/L 95-107 = 2214) CARBON DIOXIDE (test 23 MEQ/L 19-31 code = 220) CALCIUM (test code = 10.3 MG/DL 8.5-10.5 2208) PROTEIN, TOTAL (test 7.6 G/DL 6.1-8.3 code = 222) ALBUMIN (test code = 4.7 G/DL 3.5-5.2 2200) CALC GLOBULIN (test 2.9 G/DL 1.9-3.7 code = 2240) CALC A/G RATIO (test 1.6 RATIO 1.0-2.6 code = 2234) BILIRUBIN, TOTAL <0.2 MG/DL See_Comment [Automated message] (test code = 2207) The syste m which generated this result transmitted ref erence range: <=1.2. T he reference range was not used to int erpret this result as normal/abnormal . ALKALINE PHOSPHATASE 51 U/L 40-113 (test code = 220) AST (test code = 22 U/L 9-40 2218) ALT (test code = 28 U/L 5-40 UNLE SS 2219) OTHERWISE INDIC ATED, ALL TESTING PER [facility] [address] [place] [place] [address] LABORATORY DIRE CTOR: NOAH TODD M.D. CLIA NUMBER [id number] CAP ACCREDITATION N O. [id number] COMP. METABOLIC PANEL ([id number])2021-09-22 15:36:43 Test Item Value Reference Range Interpretation Comments NA (test code = 133 mmol/L 135-145 L 2417012081) K (test code = 4.8 mmol/L 3.5-5.0 3836663277) CL (test code = 96 mmol/L 98-108 L 5889637701) CO2 TOTAL (test code = 21 mmol/L 23-31 L 0226957686) AGAP (test code = 2-16 1776036421) BUN (test code = 30 mg/dL 7-23 H 2299264323) GLUCOSE (test code = 405 mg/dL 70-110 H 3998198898) CREATININE (test code = 0.74 mg/dL 0.50-1.04 3510996977) TOTAL BILI (test code = 0.6 mg/dL 0.1-1.9 3254582528) CALCIUM (test code = 9.7 mg/dL 8.6-10.6 4653474912) T PROTEIN (test code = 7.9 g/dL 6.3-8.2 5049663297) ALBUMIN (test code = 4.9 g/dL 3.5-5.0 1114310132) ALK PHOS (test code = 66 U/L 34-122 6302202951) ALTv (test code = 37 U/L 5-35 H 1742-6) AST(SGOT) (test code = 31 U/L 13-40 3739311326) eGFR (test code = mL/min/1.73m2 1376565962) CALVIN (test code = CALVIN) Association of Glomerular Filtration Rate (GFR) and Staging of Kidney Disease* + --+ --+ ------+| GFR (mL/min/1.73 m2) ?| With Kidney Damage ?| ?Without Kidney Damage+ --------+ --------+ +| ?>90 ?| ?Stage one ?| ? Normal ?+ ---+ ---+ -------+| ?60-89 ?| ?Stage two ?| ? Decreased GFR ? + --+ --+ ------+| ?30-59 ?| ?Stage three ?| ? Stage three ? + --+ --+ ------+| ?15-29 ?| ?Stage four ? | ? Stage four ?+ ---+ ---+ -------+| ?<15 (or dialysis) ? ?| ?Stage five ? | ? Stage five ?+ ---+ ---+ -------+ *Each stage assumes the associated GFR level has been in effect for at least three months. ?Stages 1 to 5, with or without kidney disease, indicate chronic kidney disease. Notes: Determination of stages one and two (with eGFR >59mL/min/1.73 m2) requires estimation of kidney damage for at least three months as defined by structural or functional abnormalities of the kidney, manifested by either:Pathological abnormalities or Markers of kidney damage (including abnormalities in the composition of the blood or urine or abnormalities in imaging tests). Lab Interpretation Abnormal (test code = 01938-1) [facility] WITH [id number] 15:26:02 Test Item Value Reference Range Interpretation Comments WBC (test code = See_Comment [Automated 1315-2) message] The sy stem which generated this result transmitted reference range : 4.30 - 11.10 10*3/?L. The reference range was not used to interpret this result as normal/abnormal . RBC (test code = See_Comment [Automated 640-8) message] The sy stem which generated this result transmitted reference range : 3.93 - 5.25 10*6/?L. The reference range was not used to interpret this result as normal/abnormal . HGB (test code = 13.4 g/dL 11.6-15.0 718-7) HCT (test code = 40.5 % 35.7-45.2 4544-3) MCV (test code = 81.7 fL 80.6-95.5 787-2) MCH (test code = 27.0 pg 25.9-32.8 785-6) MCHC (test code = 33.1 g/dL 31.6-35.1 786-4) RDW-SD (test code = 38.2 fL 39.0-49.9 L 78545-3) RDW-CV (test code = 12.9 % 12.0-15.5 788-0) PLT (test code = See_Comment [Automated 777-3) message] The sy stem which generated this result transmitted reference range : 166 - 358 10*3/ ?L. The reference r doretha was not used to interpret this result as normal/abnormal . MPV (test code = 9.8 fL 9.5-12.9 20105-9) NRBC/100 WBC (test See_Comment [Automat ed code = 9216030936) message] The system which generated this result transmitted reference range : 0.0 - 10.0 /100 WBCs. The refer ence range was not u sed to interpret th is result as normal/abnormal . NRBC x10^3 (test code <0.01 See_Comment [Auto mated = 5594091704) message] The s ystem which generated this result transmitted reference range : 10*3/?L. The reference range was not used to interpret this result as normal/abnormal . GRAN MAT (NEUT) % 50.6 % (test code = 770-8) IMM GRAN % (test code 0.80 % = 8292919925) LYMPH % (test code = 37.0 % 736-9) MONO % (test code = 8.5 % 5905-5) EOS % (test code = 2.2 % 713-8) BASO % (test code = 0.9 % 706-2) GRAN MAT x10^3(ANC) 3.86 10*3/uL 1.88-7.09 (test code = 3723910629) IMM GRAN x10^3 (test 0.06 10*3/uL 0.00-0.06 code = 2145140652) LYMPH x10^3 (test code 2.83 10*3/uL 1.32-3.29 = 731-0) MONO x10^3 (test code 0.65 10*3/uL 0.33-0.92 = 742-7) EOS x10^3 (test code = 0.17 10*3/uL 0.03-0.39 711-2) BASO x10^3 (test code 0.07 10*3/uL 0.01-0.07 = 704-7) Lab Interpretation Abnormal (test code = 99391-1) [facility] [id number] 15:18:00 Test Item Value Reference Range Interpretation Comments POCT PREG (test code = 1605) negative On board controls acceptable with present C Line (test code = 3574) POCT PREG LOT # (test code = 3575) [id number] POCT PREG TEST DATE (test 09/07/2022 code = 3576) Lab Interpretation (test code = Normal 07378-6) [facility]ED2022-01-21 08:37:00 Test Item Value Reference Range Interpretation Comments GLUBED (test code = GLUBED) 260 mg/dL 60-125 H [id number] 06:42:00 Test Item Value Reference Range Interpretation Comments GLUBED (test code = GLUBED) 265 mg/dL 60-125 H COVID 19 Asymptomatic IH [id number] 17:24:00 Test Item Value Reference Range Interpretation Comments COVID 19 Asymptomatic IH AG (test NEGATIVE NEGATIVE code = COVNONPUIAG) COMPREHENSIVE METABOLIC [id number] 05:38:33 Test Item Value Reference Range Interpretation Comments GLUCOSE (test code = 411 MG/DL 70-99 H 2216) BUN (test code = 24 MG/DL 6-20 H 2207) CREATININE (test 1.13 MG/DL 0.60-1.30 code = 2214) eGFR (2020 CKD-EPI) 62 ML/MIN/1.73 >60 (test code = 20972) CALC BUN/CREAT (test 21 RATIO 6-28 code = 2235) SODIUM (test code = 136 MEQ/L 645-409 8322) POTASSIUM (test code 5.0 MEQ/L 3.5-5.4 = 2227) CHLORIDE (test code 97 MEQ/L 95-107 = 2214) CARBON DIOXIDE (test 20 MEQ/L 19-31 code = 220) CALCIUM (test code = 10.3 MG/DL 8.5-10.5 2208) PROTEIN, TOTAL (test 8.3 G/DL 6.1-8.3 code = 222) ALBUMIN (test code = 4.8 G/DL 3.5-5.2 2200) CALC GLOBULIN (test 3.5 G/DL 1.9-3.7 code = 2240) CALC A/G RATIO (test 1.4 RATIO 1.0-2.6 code = 223) BILIRUBIN, TOTAL 0.3 MG/DL See_Comment [Automated message] (test code = 220) The syste m which generated this result transmit faith reference range : <=1.2. The refe rence range was not u sed to interpret th is result as normal/abnormal . ALKALINE PHOSPHATASE 61 U/L 40-113 (test code = 220) AST (test code = 38 U/L 9-40 2217) ALT (test code = 49 U/L 5-40 H 2218) LIPID [id number] 05:38:33 Test Item Value Reference Range Interpretation Comments CHOLESTEROL (test 176 MG/DL <200 code = 2210) TRIGLYCERIDES (test 614 MG/DL <150 H code = 2232) HDL CHOLESTEROL 28 MG/DL >39 L (test code = 2220) CALC LDL CHOL (test (NOTE) MG/DL <100 UNABLE T O CALCULATE A code = 2237) VALID LDL KATTY STEROL WHEN THE TRIGLYCERIDEVAL UE IS GREATER THAN 40 0 MG/DL. NOTE: CALCULATE D LDL IS BASED ON RICK -RASHID METHOD WHICHINC LUDES ADJUSTABLE TRIGLYCERIDE:VL DL CHOLESTEROL RAT IO.THIS FACTOR VARIES B Y MEASURED TRIGLY CERIDE AND NON-HDLCHOL ESTEROL CONCENTRATIONS WITH INCREASED CALCU LATED LDL SEENIN HIGH ER TRIGLYCERIDE OR LOWER NON-HDL SPECIME NS. FOR MOREINFORMATION , SEE CLIENT ANNOUNCE MENT AT [email or web address] CalcLDL-C RISK RATIO LDL/HDL 2.79 RATIO <3.22 (test code = 2238) UNABLE TO CALCULATE UNLESS OTHERW ISE INDICATED, ALL TESTING PERFORMED [facility] PATHOLOG[facility] [employer] [employer] [address] [place] [address] 4 LABORATORY DI GUEVARA: NOAH TODD M.D. SHUBHAM Altman [id number] CAP ACCREDITATION N O. [id number] HEMOGLOBIN [id number] 03:55:33 Test Item Value Reference Range Interpretation Comments HEMOGLOBIN A1c (test 11.9 % 4.2-5.6 H [facility] code = 19409) ASSOCIATION IDELINES FOR HGB A1C: PREDIABETES/INC REASED RISK . . . . . . . 5 .7-6.4% DIAGNOSIS O F DIABETES . . . . . . . . . >=6.5% WITH CO NFIRMATION OR APPROPRIATE SYMPTOMS NOTE: ASSAY MA Y BE AFFECTED BY HEMOGLOBINOPATH IES (SICKLE CELL ANEMIA, S-C DISEASE, OTHERS ) OR ARTIFICIALLY LO WERED BY DECREASED RED C ELL SURVIVAL (HEMOLYTIC ANEM IAS, BLOOD LOSS, ETC.) . CONSIDER ALTERNATE TESTI NG OR LABORATORY CONS ULTATION. CREATINE [id number] 13:35:13 Test Item Value Reference Range Interpretation Comments CK (test code = 4629527849) 71 U/L 33-194 Lab Interpretation (test code = Normal 67653-3) [facility] GLUCOSE (AUTOMATED)2021-06-18 13:07:35 Test Item Value Reference Range Interpretation Comments POCT GLU (test code = 6513147392) 351 mg/dL 70-110 H Lab Interpretation (test code = Abnormal 60006-1) [facility] GLUCOSE(AGE >30DAYS)2021-06-18 13:04:00 Test Item Value Reference Range Interpretation Comments POCT Glu (age>30days) (test code = 351 mg/dL 70-110 A 3342) Lab Interpretation (test code = Abnormal 07771-9) [facility]. Metabolic Panel (60577)2021-06-18 11:14:20 Test Item Value Reference Range Interpretation Comments NA (test code = 134 mmol/L 135-145 L [id number]) K (test code = 4.6 mmol/L 3.5-5.0 [id number]) CL (test code = 103 mmol/L 98-108 [id number]) CO2 TOTAL (test code = 18 mmol/L 23-31 L 4359193507) AGAP (test code = 2-16 [id number]) BUN (test code = 30 mg/dL 7-23 H [id number]) GLUCOSE (test code = 390 mg/dL 70-110 H [id number]) CREATININE (test code = 0.93 mg/dL 0.50-1.04 0627289522) TOTAL BILI (test code = 0.4 mg/dL 0.1-1.8 9036789763) CALCIUM (test code = 10.0 mg/dL 8.6-10.6 4033186534) T PROTEIN (test code = 7.6 g/dL 6.3-8.2 3446840201) ALBUMIN (test code = 4.5 g/dL 3.5-5.0 4313794728) ALK PHOS (test code = 51 U/L 34-122 8336477610) ALTv (test code = 34 U/L 5-35 2-6) AST(SGOT) (test code = 26 U/L 13-40 3193584153) eGFR (test code = mL/min/1.73m2 0800427449) CALVIN (test code = CALVIN) Association of Glomerular Filtration Rate (GFR) and Staging of Kidney Disease* + --+ --+ ------+| GFR (mL/min/1.73 m2) ?| With Kidney Damage ?| ?Without Kidney Damage+ --------+ --------+ +| ?>90 ?| ?Stage one ?| ? Normal ?+ ---+ ---+ -------+| ?60-89 ?| ?Stage two ?| ? Decreased GFR ? + --+ --+ ------+| ?30-59 ?| ?Stage three ?| ? Stage three ? + --+ --+ ------+| ?15-29 ?| ?Stage four ? | ? Stage four ?+ ---+ ---+ -------+| ?<15 (or dialysis) ? ?| ?Stage five ? | ? Stage five ?+ ---+ ---+ -------+ *Each stage assumes the associated GFR level has been in effect for at least three months. ?Stages 1 to 5, with or without kidney disease, indicate chronic kidney disease. Notes: Determination of stages one and two (with eGFR >59mL/min/1.73 m2) requires estimation of kidney damage for at least three months as defined by structural or functional abnormalities of the kidney, manifested by either:Pathological abnormalities or Markers of kidney damage (including abnormalities in the composition of the blood or urine or abnormalities in imaging tests). Lab Interpretation Abnormal (test code = 50104-9) [facility] [id number] 11:06:00 Test Item Value Reference Range Interpretation Comments POCT PREG (test code = 1605) neg On board controls acceptable with yes C Line (test code = 3574) POCT PREG LOT # (test code = 3575) [id number] POCT PREG TEST DATE (test 08/10/2022 code = 3576) Lab Interpretation (test code = Normal 62251-7) [facility] [id number] 11:00:39 Test Item Value Reference Range Interpretation Comments WBC (test code = See_Comment [Automated 6890-2) message] The sy stem which generated this result transmitted reference range : 4.30 - 11.10 10*3/?L. The reference range was not used to interpret this result as normal/abnormal . RBC (test code = See_Comment [Automated 579-8) message] The sy stem which generated this result transmitted reference range : 3.93 - 5.25 10*6/?L. The reference range was not used to interpret this result as normal/abnormal . HGB (test code = 11.9 g/dL 11.6-15.0 718-7) HCT (test code = 36.4 % 35.7-45.2 4544-3) MCV (test code = 84.3 fL 80.6-95.5 787-2) MCH (test code = 27.5 pg 25.9-32.8 785-6) MCHC (test code = 32.7 g/dL 31.6-35.1 786-4) RDW-SD (test code = 40.1 fL 39.0-49.9 30441-0) RDW-CV (test code = 13.2 % 12.0-15.5 788-0) PLT (test code = See_Comment [Automated 777-3) message] The sy stem which generated this result transmitted reference range : 166 - 358 10*3/ ?L. The reference r doretha was not used to interpret this result as normal/abnormal . MPV (test code = 9.5 fL 9.5-12.9 23314-7) NRBC/100 WBC (test See_Comment [Automat ed code = 5508148270) message] The system which generated this result transmitted reference range : 0.0 - 10.0 /100 WBCs. The refer ence range was not u sed to interpret th is result as normal/abnormal . NRBC x10^3 (test code <0.01 See_Comment [Auto mated = 6055207686) message] The s ystem which generated this result transmitted reference range : 10*3/?L. The reference range was not used to interpret this result as normal/abnormal . GRAN MAT (NEUT) % 43.7 % (test code = 770-8) IMM GRAN % (test code 0.70 % = 2088756247) LYMPH % (test code = 41.9 % 736-9) MONO % (test code = 8.8 % 5905-5) EOS % (test code = 3.6 % 713-8) BASO % (test code = 1.3 % 706-2) GRAN MAT x10^3(ANC) 2.68 10*3/uL 1.88-7.09 (test code = 8410100999) IMM GRAN x10^3 (test 0.04 10*3/uL 0.00-0.06 code = 9990814084) LYMPH x10^3 (test code 2.57 10*3/uL 1.32-3.29 = 731-0) MONO x10^3 (test code 0.54 10*3/uL 0.33-0.92 = 742-7) EOS x10^3 (test code = 0.22 10*3/uL 0.03-0.39 711-2) BASO x10^3 (test code 0.08 10*3/uL 0.01-0.07 H = 704-7) Lab Interpretation Abnormal (test code = 63837-0) [facility] UP EXTREM W/O CONT [id number] 08:37:00 [facility] : 1980 Sex: F Patient Name: MARGE FRANCO Unit No: [id number] EXAMS: CPT CODE: [id number] CT UP EXTREM W/O CONT [id number] CT SCAN LEFT WRIST WITH RECONSTRUCTION DIAGNOSIS: 1. No evidence of fracture or dislocation. The scaphoid is within normal limits. No evidenceof scapholunate disassociation. No evidence of focal bony lesion. TECHNIQUE: Volumetric CT data of the left wrist was obtained without use of intravenous contrast. Images werethen viewed in the axial, coronal and sagittal planes. CT radiation dose optimization is achieved for this examination by the use of a CT protocol in accordance with ACR practice standards and adherence to endoscopy registered nurse's recommendations. INDICATION: LEFT WRIST SPRAIN, POSSIBLE SCAPHOID FRACTURE COMPARISON: None. COMMENT: Findings are as described above. at 0837 Reported and signed by: Aemrica Schuler MD CC: Bebeto Quiroga MD Technologist: KAVEH WYMAN MRI CTDI:DLP: Trnscrpt: 08/11/2020 (0837) [facility] ital NAME: MARGE FRANCO [address] [facility] [address] PHYS: Bebeto Valiente MD : 1980 AGE: 40 SEX: F [place], [place] [address] LOC: Y.RAD PHONE #: [phone] EXAM DATE: 08/08/2020 STATUS: DEP CLI FAX #: [phone] RAD #: D/C DT PAGE 1 Signed Report Patient Name: MARGE FRANCO Unit No: [id number] EXAMS: CPT CODE: [id number] CT UP EXTREM W/[place] [address] <Continued> Orig Print D/T: S: 08/11/2020 (0840) [facility] NAME: MARGE FRANCO [address] [facility] PHYS: Bebeto Valiente MD : 1980 AGE: 40 SEX: F [place], [place] [address]QDZQ NO: [id number] LOC: Y.RAD PHONE #: [phone] EXAM DATE: 08/08/2020 STATUS: DEP CLI FAX #: [phone] RAD #: D/C DT PAGE 2 Signed Report- XR FOREARM 2 VIEWS [id number] 09:10:[address] [facility] : 1980 Sex: F Patient Name: MARGE FRANCO Unit No: [id number] EXAMS: CPT CODE: [id number] XR FORE[place] [address] [place] [address] Left forearm and wrist 4 views COMMENT: There isno evidence for fracture or subluxation. No focal bony lesions are seen. at 0910 Reported and signed by: Prasad Marina MD CC: Rafy Ferguson MD Technologist: Marie Johnson(R) Transcribed D/ (5710) [facility] NAME: MARGE FRANCO [facility] [facility] PHYS: HAMST.Rell - Rafy Ferguson [place] : 1980 AGE: 40 SEX: F [place] [address] LOC: TEOFILO PHONE #: [phone] EXAM DATE: 08/02/2020 STATUS: DEP ER FAX #: [phone] RAD #: D/C DT PAGE 1 Signed Report Patient Name: MARGE FRANCO Unit No: [id number] EXAMS: CPT CODE: [id number] XR [place] [address] [place] [address] <Continued> Orig Print D/T: S: 08/04/2020 (0914) [facility] PHYS: HAMSTBreana - Rafy Ferguson [place] : 1980 AGE: 40 SEX: F [place] [address] LOC: TEOFILO PHONE #: [phone] EXAM DATE: 08/02/2020 STATUS: DEP ER FAX #: [phone] RAD #: D/C DT PAGE 2 Signed Report- XR ANKLE 3 + V [id number] 07:19:00 Patient Name: Marge Franco Unit No: [id number] EXAMS: CPT CODE: [id number] XR ANKLE 3 + V RT 424[address] Right ankle 3 views COMMENT: There is [...] DO Technologist: SAMANTHA MORALES, RT(R) Transcribed D/ (07) [facility] NAME: Marge Franco [facility] PHYS: Barry Cardenas DO : 1980 AGE: 40 SEX: F [place] [address] LOC: TOEFILO PHONE #: [phone] EXAM DATE: 02/13/2020 STATUS: DEP ER FAX #: [phone] RAD #: D/C DT PAGE 1 Signed Report Patient Name: Marge Franco Unit No: [id number] EXAMS: CPT CODE: [id number] XR ANKLE 3 + V RT 00104 <Continued> Orig Print D/T: S: 02/14/2020 (07) [facility] NAME: Marge Franco [facility] PHYS: Barry Cardenas DO :1980 AGE: 40 SEX: F [place], [place] [address] LOC: TEOFILO PHONE #: [phone] EXAM DATE: 02/13/2020 STATUS: DEP ER FAX #: [phone] RAD #: D/C DT PAGE 2 Signed Report- XR FOOT 2 VIEWS [id number] 07:19:00 Patient Name: Marge Franco Unit No: [id number] EXAMS: CPT CODE: [id number] XR FO[place] [address] [place] [address] Right ankle 3 views COMMENT: There is [...] Technologist: SAMANTHA MORALES, RT(R) Transcribed D/ (718) [facility] NAME: Marge Franco [facility] PHYS: Barry Cardenas DO : 1980 AGE: 40 SEX: F [place], [place] [address] LOC: TEOFILO PHONE #: [phone] EXAM DATE: 02/13/2020 STATUS: DEP ER FAX #: [phone] RAD #: D/C DT PAGE 1 Signed Report Patient Name: Marge Franco Unit No: [id number] EXAMS: CPT CODE: [id number] [place]R FO[place] [address] [place] [address] <Continued> Orig Print D/T: S: 02/14/2020 (0722) [facility] NAME: Marge Franco [address] [facility] [address] PHYS: Barry Cardenas DO :1980 AGE: 40 SEX: F [place] [address] LOC: TEOFILO PHONE #: [phone] EXAM DATE: 02/13/2020 STATUS: DEP ER FAX #: [phone] RAD #: D/C DT PAGE 2 Signed [id number] 11:17:00 Test Item Value Reference Range Interpretation Comments GLUBED (test code = GLUBED) 119 mg/dL 60-125 N [id number] 08:15:00 Test Item Value Reference Range Interpretation Comments GLUBED (test code = GLUBED) 117 mg/dL 60-125 N Novel Coronavirus 2019 [id number] 17:12:00 Test Item Value Reference Range Interpretation Comments Novel Coronavirus 2019 Inhouse (test Negative Negative code = COVNONPUI) Novel Coronavirus 2019 [id number] 17:12:00 Test Item Value Reference Range Interpretation Comments Novel Coronavirus 2019 Inhouse (test Negative Negative code = COVNONPUI) CBC W/AUTO [id number] 20:19:00 Test Item Value Reference Range Interpretation [...] 0-0 N code = NRBC) BASIC METABOLIC [id number] 19:54:00 Test Item Value Reference Range Interpretation [...] RATE (test code = GFR) mL/mi n/1.73 r2Tiphsuuax Range:Healthy A dults >90 mL/min/1.73 m2 For [...] CA) - CT LOWER EXTRM W/O C [id number] 14:57:00 Patient Name: MARGE FRANCO Unit No: [id number] EXAMS: CPT CODE: [id number] [place] LOWER EXTRM W/[place] [address] CT SCAN RIGHT ANKLE WITH RECONSTRUCTION DIAGNOSIS: [...] with ACR practice standards and adherence to endoscopy registered nurse's recommendations. INDICATION: RIGHT ANKLE PAIN COMPARISON: None. COMMENT: Findings are as described above. at 1454 Reported and signed by: America Schuler MD CC: Elbert Wilson MD Technologist: Shaan Nassar,RT(R) CTDI: DLP: Trnscrpt: 01/04/2020 (9663) [facility] NAME: MARGE FRANCOOTILDE [address] [facility] PHYS: Elbert Rodrigues MD : 1980 AGE: 39 SEX: F [place] [address] LOC: Y.RAD PHONE #: [phone] EXAM DATE: 01/04/2020 STATUS: REG CLI FAX #: [phone] RAD #: D/C DT PAGE 1 Signed Report Patient Name: MARGE FRANCO Unit No: [id number] EXAMS: CPT CODE: [id number] CT LOWER EXTRM W/[place] [address] <Continued> Orig Print D/T: S: 01/04/2020 (1500) [facility] NAME: JOANN FRANCONICHOLASTARI [address] [facility] PHYS: Elbert Rodrigues MD : 1980 AGE: 39 SEX: F [place] [address] LOC: Y.RAD PHONE #: [phone] EXAM DATE: 01/04/2020 STATUS: REG CLI FAX #: [phone] RAD #: D/C DT PAGE 2 Signed Report"
[2021-11-08 21:13] LABS: Absolute Lymphocytes (CBC) 2.9 K/uL (0.7-4.9); Hematocrit 36.1 % (36.0-45.0); Lymphocytes % 42.5 % (15.3-44.8); MPV 7.5 fL (7.6-11.3); RBC Red Blood Cell Count 4.47 M/uL (3.86-4.86)
[2021-11-08] MEDS ORDERED: MORPHINE 4 MG/ML SYR ONE (21:26)
[2021-11-08 21:28] LABS: Albumin 3.7 g/dL (3.4-5.0); Bilirubin Total 0.3 mg/dL (0.2-1.0); Potassium 3.9 mmol/L (3.5-5.1); Protein, Total 7.7 g/dL (6.4-8.2)
[2021-11-08] MEDS ORDERED: NA CHLORIDE 0.9% 1,000 ML ONE ×2 (21:41→22:48)
[2021-11-08] MEDS ORDERED: ONDANSETRON 4 MG/2 ML VIAL ONE (21:42)
[2021-11-08] MEDS ORDERED: INSULIN -REGULAR HUMAN 50 UNIT/0.5 ML ML ONE (21:55)
--- NOTE | 2021-11-09 00:07 | ER ---
Nurse's Notes [facility] Name: Valentina Franco Age: 41 yrs Sex: Female : 1980 Arrival Date: 11/08/2021 Time: 19:46 Bed 12 Private MD: Diagnosis: Lower abdominal pain, unspecified;Muscle Tear Presentation: 11/08 19:53 Chief complaint: Patient states: "Yesterday I started having this pain but tonight I ab2 cant take it, it feels like something is going to burst." Pt c/o RLQ pain and nausea. Coronavirus screen: Vaccine status: Patient reports receiving the 2nd dose of the covid vaccine. Client denies travel out of the [place] in the last 14 days. At this time, the client does not indicate any symptoms associated with coronavirus-19. Ebola Screen: Patient negative for fever greater than or equal to 101.5 degrees Fahrenheit, and additional compatible Ebola Virus Disease symptoms Patient denies exposure to infectious person. Patient denies travel to an Ebola-affected area in the 21 days before illness onset. No symptoms or risks identified at this time. Initial Sepsis Screen: Does the patient meet any 2 criteria? HR > 90 bpm. No. Patient's initial sepsis screen is negative. Does the patient have a suspected source of infection? No. Patient's initial sepsis screen is negative. Risk Assessment: Do you want to hurt yourself or someone else? Patient reports no desire to harm self or others. Onset of symptoms is unknown. 19:53 Method Of Arrival: Ambulatory ab2 19:53 Acuity: CYNTHIA 3 ab2 Triage Assessment: 19:54 General: Appears in no apparent distress. uncomfortable, Behavior is calm, cooperative, ab2 appropriate for age. Pain: Complains of pain in right lower quadrant. Neuro: Level of Consciousness is awake, alert, obeys commands, Oriented to person, place, time, situation, Appropriate for age Roller Maker are equal bilaterally Moves all extremities. Cardiovascular: No deficits noted. Denies chest pain, shortness of breath. Respiratory: Airway is patent Respiratory effort is even, unlabored, Respiratory pattern is regular, symmetrical. GI: Reports lower abdominal pain, nausea. : No deficits noted. No signs and/or symptoms were reported regarding the genitourinary system. Derm: Skin is intact, is healthy with good turgor, Skin is pink, warm \\T\\ dry. Historical: - Allergies: 19:54 No Known Allergies; ab2 - PMHx: 19:54 Anxiety; Depression; Pancreatitis; High Cholesterol; UTI; Diabetes - NIDDM; ab2 - Immunization history:: Adult Immunizations up to date. - Social history:: Smoking status: Patient/guardian denies using tobacco. Screenin:30 Abuse screen: Denies threats or abuse. Nutritional screening: No deficits noted. jb4 Tuberculosis screening: No symptoms or risk factors identified. Fall Risk None identified. Assessment: 20:30 General: Appears in no apparent distress. uncomfortable, Behavior is calm, cooperative, jb4 appropriate for age. Pain: Complains of pain in abdomen Pain does not radiate. Pain currently is 10 out of 10 on a pain scale. Neuro: Level of Consciousness is awake, alert, obeys commands, Oriented to person, place, time, situation. Cardiovascular: Patient's skin is warm and dry. Respiratory: Airway is patent Respiratory effort is even, unlabored, Respiratory pattern is regular, symmetrical. GI: Abdomen is flat, non-distended, Abd is soft X 4 quads Abd is non tender in left upper quadrant and left lower quadrant Abdomen is tender to palpation in right upper quadrant and right lower quadrant. : No signs and/or symptoms were reported regarding the genitourinary system. EENT: No signs and/or symptoms were reported regarding the EENT system. Derm: Skin is intact, Skin is pink, warm \\T\\ dry. Musculoskeletal: Circulation, motion, and sensation intact. Range of motion: intact in all extremities. 21:30 Reassessment: Patient appears in no apparent distress at this time. Patient and/or jb4 family updated on plan of care and expected duration. Pain level reassessed. Patient is alert, oriented x 3, equal unlabored respirations, skin warm/dry/pink. 23:00 Reassessment: Patient appears in no apparent distress at this time. Patient and/or jb4 family updated on plan of care and expected duration. Pain level reassessed. Patient is alert, oriented x 3, equal unlabored respirations, skin warm/dry/pink. 11/09 00:00 Reassessment: Patient appears in no apparent distress at this time. Patient and/or jb4 family updated on plan of care and expected duration. Pain level reassessed. Patient is alert, oriented x 3, equal unlabored respirations, skin warm/dry/pink. Vital Signs: 11/08 19:53 BP 131 / 78; Pulse 109; Resp 18; Temp 97.2; Pulse Ox 96% on R/A; Weight 101.6 kg; ab2 Height 5 ft. 4 in. (162.56 cm); Pain 10/10; 21:30 BP 101 / 79; Pulse 108; Resp 18; Pulse Ox 96% on R/A; jb4 11/09 00:00 BP 128 / 80; Pulse 76; Resp 18; Pulse Ox 100% on R/A; jb4 11/08 19:53 Body Mass Index 38.45 (101.60 kg, 162.56 cm) ab2 ED Course: 11/08 19:46 Patient arrived in ED. bp1 19:54 Triage completed. ab2 19:55 Arm band placed on right wrist. ab2 20:29 Jason Connolly PA is PHCP. jmm 20:29 Johan Giron MD is Attending Physician. jmm 20:29 Anil Slater, PETE is Primary Nurse. jb4 20:30 Patient has correct armband on for positive identification. Call light in reach. jb4 21:02 Initial lab(s) drawn, by me, sent to lab. Inserted saline lock: 18 gauge in right jb4 antecubital area, using aseptic technique. Blood collected. 22:25 CT Abd/Pelvis - IV Contrast Only In Process Unspecified. EDMS 11/09 00:00 No provider procedures requiring assistance completed. jb4 00:19 IV discontinued, intact, bleeding controlled, No redness/swelling at site. Pressure jb4 dressing applied. Administered Medications: 11/08 21:24 Drug: Zofran (Ondansetron) 4 mg Route: IVP; Site: right antecubital; jb4 22:00 Follow up: Response: No adverse reaction; Marked relief of symptoms jb4 21:26 Drug: morphine 4 mg Route: IVP; Site: right antecubital; jb4 22:00 Follow up: Response: No adverse reaction; Marked relief of symptoms jb4 21:46 Drug: NS 0.9% 1000 ml Route: IV; Rate: 1 bolus; Site: right antecubital; jb4 22:47 Follow up: Response: No adverse reaction; IV Status: Completed infusion; IV Intake: jb4 1000ml 22:01 Drug: Insulin Regular Human 10 units {Co-Signature: ab2 (Murphy Rivas).} Route: jb4 IVP; Site: right antecubital; 23:00 Follow up: Response: No adverse reaction; Marked relief of symptoms; Blood sugar is jb4 lowered 22:46 Drug: NS 0.9% 1000 ml Route: IV; Rate: 1 bolus; Site: right antecubital; jb4 23:30 Follow up: Response: No adverse reaction; IV Status: Completed infusion; IV Intake: jb4 1000ml 11/09 00:12 Drug: Ketorolac 30 mg Route: IVP; Site: right antecubital; jb4 00:21 Follow up: Response: Medication administered at discharge. jb4 Intake: 11/08 22:47 IV: 1000ml; Total: 1000ml. jb4 23:30 IV: 1000ml; Total: 2000ml. jb4 Outcome: 11/09 00:06 Discharge ordered by . jeana 00:19 Discharged to home ambulatory. jb4 00:19 Condition: stable 00:19 Discharge instructions given to patient, Instructed on discharge instructions, follow up and referral plans. medication usage, Demonstrated understanding of instructions, follow-up care, medications, Prescriptions given X 2. 00:21 Patient left the ED. jb4 Signatures: Dispatcher [employer] EDMS Jason Connolly PA PA jmm Bryson, James, RN RN jb4 Ml Wang Alexis ab2 Alexis Bleininger ab2 Corrections: (The following items were deleted from the chart) 11/08 19:54 19:54 PMHx: "heart racing"; ab2 ab2 19:55 19:53 Chief complaint: Patient states: "Yesterday I started having this pain but ab2 tonight I cant take it, it feels like something is going to burst." ab2 22:47 22:47 IV Status: Completed infusion; IV Intake: 1000ml jb4 jb4 11/09 00:20 00:00 IV discontinued, intact, bleeding controlled, No redness/swelling at site. jb4 Pressure dressing applied, jb4
--- NOTE | 2021-11-09 00:08 | EDPHYS ---
Physician Documentation [facility] Name: Valentina Franco Age: 41 yrs Sex: Female : 1980 Arrival Date: 11/08/2021 Time: 19:46 Bed 12 Private MD: PHYLICIA Physician Johan Giron HPI: 11/08 20:35 This 41 yrs old Female presents to ER via Ambulatory with complaints of jmm Abdominal Pain. 20:35 The patient presents with abdominal pain. Onset: The symptoms/episode began/occurred jmm gradually. 20:35 The symptoms radiate to pelvis. jmm 20:35 Associated signs and symptoms: Pertinent negatives: nausea and vomiting, diarrhea. The jmm symptoms are described as achy. Modifying factors: The symptoms are alleviated by nothing, the symptoms are aggravated by nothing. It is unknown whether or not the patient has had similar symptoms in the past. Historical: - Allergies: 19:54 No Known Allergies; ab2 - PMHx: 19:54 Anxiety; Depression; Pancreatitis; High Cholesterol; UTI; Diabetes - NIDDM; ab2 - Immunization history:: Adult Immunizations up to date. - Social history:: Smoking status: Patient/guardian denies using tobacco. ROS: 20:35 Constitutional: Negative for fever, chills, and weight loss, Cardiovascular: Negative jmm for chest pain, palpitations, and edema, Respiratory: Negative for shortness of breath, cough, wheezing, and pleuritic chest pain. 20:35 Abdomen/GI: Positive for abdominal pain. 20:35 All other systems are negative. Exam: 20:35 Constitutional: This is a well developed, well nourished patient who is awake, alert, jmm and in no acute distress. Head/Face: atraumatic. Eyes: EOMI, no conjunctival erythema appreciated ENT: Moist Mucus Membranes Neck: Trachea midline, Supple Chest/axilla: Normal chest wall appearance and motion. Cardiovascular: Regular rate and rhythm. No edema appreciated Respiratory: Normal respirations, no respiratory distress appreciated Back: Normal ROM Skin: General appearance color normal 20:35 MS/ Extremity: Moves all extremities, no obvious deformities appreciated, no edema noted to the lower extremities Neuro: Awake and alert Psych: Behavior is normal, Mood is normal, Patient is cooperative and pleasant 20:35 Abdomen/GI: Inspection: abdomen appears normal, Bowel sounds: normal, Palpation: soft, moderate abdominal tenderness, in the suprapubic area and right lower quadrant. Vital Signs: 19:53 BP 131 / 78; Pulse 109; Resp 18; Temp 97.2; Pulse Ox 96% on R/A; Weight 101.6 kg; ab2 Height 5 ft. 4 in. (162.56 cm); Pain 10/10; 21:30 BP 101 / 79; Pulse 108; Resp 18; Pulse Ox 96% on R/A; [facility] 11/09 00:00 BP 128 / 80; Pulse 76; Resp 18; Pulse Ox 100% on R/A; [facility] 11/08 19:53 Body Mass Index 38.45 (101.60 kg, 162.56 cm) ab2 MDM: 11/08 20:34 Patient medically screened. [facility] 11/09 00:05 Data reviewed: vital signs, nurses notes. Counseling: I had a detailed discussion with [facility] the patient and/or guardian regarding: the historical points, exam findings, and any diagnostic results supporting the discharge/admit diagnosis, radiology results, the need for outpatient follow up, to return to the emergency department if symptoms worsen or persist or if there are any questions or concerns that arise at home. ED course: Pain is localized to the area of swelling in the rectus abdominis muscle. Patient advised to follow with PCP otherwise given strict return precautions for worsening symptoms.. 11/08 20:36 Order name: CBC with Diff; Complete Time: 21:30 [facility] 11/08 20:36 Order name: CMP; Complete Time: 21:31 [facility] 11/08 20:36 Order name: Lipase; Complete Time: 21:31 [facility] 11/08 20:36 Order name: CT Abd/Pelvis - IV Contrast Only [facility] 11/08 23:57 Order name: Glucose, Ancillary Testing; Complete Time: 23:58 [facility] 11/08 20:36 Order name: IV Saline Lock; Complete Time: 21:05 [facility] 11/08 20:36 Order name: Labs collected and sent; Complete Time: 21:05 [facility] 11/08 20:36 Order name: Urine Dipstick-Ancillary (obtain specimen); Complete Time: 00:11 [facility] Administered Medications: 11/08 21:24 Drug: Zofran (Ondansetron) 4 mg Route: IVP; Site: right antecubital; jb4 22:00 Follow up: Response: No adverse reaction; Marked relief of symptoms jb4 21:26 Drug: morphine 4 mg Route: IVP; Site: right antecubital; jb4 22:00 Follow up: Response: No adverse reaction; Marked relief of symptoms jb4 21:46 Drug: NS 0.9% 1000 ml Route: IV; Rate: 1 bolus; Site: right antecubital; jb4 22:47 Follow up: Response: No adverse reaction; IV Status: Completed infusion; IV Intake: jb4 1000ml 22:01 Drug: Insulin Regular Human 10 units {Co-Signature: ab2 (Murphy Rivas).} Route: jb4 IVP; Site: right antecubital; 23:00 Follow up: Response: No adverse reaction; Marked relief of symptoms; Blood sugar is jb4 lowered 22:46 Drug: NS 0.9% 1000 ml Route: IV; Rate: 1 bolus; Site: right antecubital; jb4 23:30 Follow up: Response: No adverse reaction; IV Status: Completed infusion; IV Intake: jb4 1000ml 11/09 00:12 Drug: Ketorolac 30 mg Route: IVP; Site: right antecubital; jb4 00:21 Follow up: Response: Medication administered at discharge. jb4 Disposition Summary: 11/09/21 00:06 Discharge Ordered Location: Home [facility] Condition: Stable [facility] Diagnosis - Lower abdominal pain, unspecified m - Muscle Tear [facility] Followup: [facility] - With: Private Physician - When: 2 - 3 days - Reason: Recheck today's complaints, Continuance of care, Re-evaluation by your physician Discharge Instructions: - Discharge Summary Sheet [facility] - Abdominal Pain, Adult [facility] - Muscle Strain [facility] Forms: - Medication Reconciliation Form [facility] - Thank You Letter [facility] - Antibiotic Education [facility] - Prescription Opioid Use [facility] Prescriptions: - Diclofenac Sodium 75 mg Oral Tablet Sustained Release - take 1 tablet by ORAL route 2 times per day; 30 tablet; Refills: 0, Product [facility] Selection Permitted - orphenadrine citrate 100 mg Oral Tablet Sustained Release - take 1 tablet by ORAL route 2 times per day As needed; 20 tablet; Refills: 0, [facility] Product Selection Permitted Signatures: Dispatcher [facility] Jason Gutierres PA PA Anil Sterling, RN RN jb4 Evelyn, Murphy ab2 Murphy Rivas ab2 Corrections: (The following items were deleted from the chart) 11/08 19:54 19:54 PMHx: "heart racing"; ab2 ab2 21:05 20:36 Urine Test ordered. jeana jb4
[2021-11-09] MEDS ORDERED: KETOROLAC 30 MG/ML INJ ONE (00:18)
[2021-11-09 02:03] VITALS: TEMP 97.2
[2021-11-09 02:06] VITALS: BP 128/80; O2SAT 100
--- NOTE | 2021-11-09 20:57 | RAD REPORT ---
EXAM DESCRIPTION: CT - Abdomen Pelvis W Contrast - 11/09/2021 5:17 am CLINICAL HISTORY: RLQ abdominal pain COMPARISON: None. TECHNIQUE: CT ABDOMEN PELVIS WITH IV CONTRAST on 11/08/2021 8:36 PM CDT This exam was performed according to our departmental dose-optimization program, which includes autom ated exposure control, adjustment of the mA and/or kV according to patient size and/or use of iterati ve reconstruction technique. FINDINGS: Lower lungs are clear. Abdomen: Liver is diffusely fatty in attenuation. There is no biliary dilatation. Cholecystectomy was performed. The pancreas and spleen are normal in appearance. Adrenal glands are normal. Kidneys are mildly atrophic. There is a 2 mm mid to upper pole right renal calculus. There is no hydronephrosis. Abdominal aorta is normal in course and caliber without aneurysm. There is no free air. There is no r etroperitoneal adenopathy. Pelvis: There is no bowel obstruction. Urinary bladder is unremarkable. There is no free fluid. Uteru s is normal in size. Appendix is normal. There is mild asymmetric enlargement of the inferior aspect of the right rectus abdominis muscle. The muscle measures 2.6 cm in AP dimension inferiorly on the ri ght versus 1.7 cm on the left. Skeleton: There are no acute osseous findings. No suspicious bony lesions. IMPRESSION: Normal appendix. Right nephrolithiasis without hydronephrosis. Enlargement of the inferior right rectus abdominous muscle, which could be secondary to underlying sm all hematoma. Electronically signed by: Gualberto Mcmullen MD 11/08/2021 11:03 PM CDT Due to temporary technical issues with the PACS/Fluency reporting system, reports are being signed by the in house radiologists without review as a courtesy to insure prompt reporting. The interpreting radiologist is fully responsible for the content of the report.
== END 2021-11-09 00:21 | disposition home or self-care (01) ==
LOC: ER 19:42
DX: S39.011A Strain of muscle, fascia and tendon of abdomen, initial encounter (principal); E11.9 Type 2 diabetes mellitus without complications
CPT/HCPCS: 85025; 36415; 82947; 83690; 80053; 74177; Q9967; J1815; J7030 ×2; J2405; 96361; 96374; 96375; 99284

== ENCOUNTER 2021-12-07 05:17 | Inpatient (IN) | payer OTHER ==
--- OUTSIDE RECORDS SUMMARY | 2021-12-07 05:22 | XMS REPORT | Continuity of Care Document ---
:1980 Author Organization [facility] t Address [address] [place] [address] Care Team Providers Name Role Phone HENNY Kandice [facility] Primary Care Physic diana Unavailable Cinthia Quiroga [...] Attending Clinician Unavailable ERNST Attending Clinician Unavailable NAGELIA Attending Clinician Unavailable Fay Lopez Attending Clinician [...] Date Expiration Date Nakul zavala [employer] [id number] 2019 00:00:00 COMMERCIAL [id number] 2021 NON-CONTRACT 00:00:00 GENERIC Problems Condition Condition Condition Status Onset Resolution Last Treating Co mments Source Name Details Category Date Date Treatment Clinician Date Essential Essential Disease Active Uni vers hypertensi hypertensi 5-26 it y of on on 00:00: [place] [facility] POTS POTS Disease Active Univers (postural (postural 5-26 ity of orthostati orthost[place] [facility] [place] [facility] tachycardi tachycardi Br anch a a syndrome) syndrome) Dyslipidem Dyslipidem Disease Active U nivers ia ia 5-26 ity of 00:00: [place] [facility] Atypical Atypical Disease Active Unive rs chest pain chest pain 5-25 it y of 00:00: [place] [facility] Pancreatit Pancreatit Disease Active U nivers is, is, 4-24 ity of recurrent recurrent 00:[facility] Pain at Pain at Disease Active Univers surgical surgical 1-30 ity of incision incision 00:00: [place] [facility] Mood Mood Disease Active Univers swings swings 1-30 ity of 00:00: [place] [facility] Gestationa Gestationa Disease Active 2012-07 U floresers [...] y of ies in ies in 00:00: [place] shape or shape or 00 Medica l [...] the original. 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 to Immune to Disease Active [...] [facility] FA Active [place] [facility]ES [facility]- [place] 00:00: [facility] 00 [facility] tequila DA Active [place] hives [facility] 1- [place] 00:00: [facility] 00 [facility] alcohol FA Active MO [facility] 01-15 [place] 00:00: [facility] 00 [facility] alcohol FA Active MO HIVES TO [facility] 01-15 [place] 00:00: [facility] 00 [facility] tequila DA Active MO hives [facility] 01-09 [place] 00:00: [place] 00 [facility] alcohol FA Active WA 2015-07 [facility] 09-06 [place] 00:00: [facility] 00 [facility] alcohol FA Active WA TURNS RED 2015-07 [facility] 09-06 [place] 00:00: [facility] 00 dic [facility]osp[facility] NO KNOWN Drug Active Univers ALLERGIE Class ity of S [facility] Social History Social Habit Start Date Stop Date Quantity Comments Source History SDOH University o f Alcohol Frequency [facility] edical [place] History SDCT University o f Alcohol Std [place] Medical Drinks Branch History SDCT University o f Alcohol Binge [place] Medic al Branch Exposure to Not sure [facility] SARS-CoV-2 [facility] (event) [place] Alcohol intake 2021-10-16 2021-10-16 Current drinker of Un iversity of 00:00:00 00:00:00 alcohol (finding) [facility] [place] [facility] Alcohol Comment 2019-08-15 2019-08-15 ocassionally Univers ity of 00:00:00 00:00:00 [facility] Tobacco use and 2011-12-19 2011-12-19 Never used Universit y of exposure 00:00:00 00:00:00 [facility] Sex [birth year] At [birth year] Universit y of 00:00:00 00:00:00 [facility] Smoking Status Start Date Stop Date Source Never smoker [facility] Medications Ordered Filled Start Stop Current [...] ity of human 02:00: 01:14 from 10.34 [place] (HUMULIN R) 00 :00 Units = Medic [...] dose, On Branch Tue10/16/21 at 1815, Routine
[employer] member approving Restricted medication : DREVER, BEATRIZ G oxybutynin Yes [id number] 5mg Take 1 Univers chloride 5 4-08 tablet by ity of mg tablet 00:00: mouth 3 [place] 00 (three) Medical times Branch daily as needed for Bladder spasms. ondansetron Yes [id number] 4mg Take 1 Univers 4 mg 4-08 [...] Indication s: acute pain ondansetron 2020-07 Yes [id number] 4mg Take 1 Univers 4 mg 2-09 [...] Indication s: acute pain ondansetron 2020-07 Yes [id number] 4mg Take 1 Univers 4 mg 2-09 [...] Indication s: acute pain ondansetron 2020-07 Yes [id number] 4mg Take 1 Univers 4 mg 2-09 [...] Indication s: acute pain ondansetron 2020-07- No [id number] 4mg Take 1 Univers 4 mg 08-19 [...] 05/30/21 at 1800, Routine iopamidol 2020-07 No [id number] 100mL 100 mL, Univers (ISOVUE 07-30 9109 Intravenou ity o f 370-500 mL) 23:48: 23:48 s, ONCE, 1 [place] injection 00 :00 dose, On Medica l 100 mL Sat Branch 05/30/21 at 1800, Routine ibuprofen 2020-07 Yes [id number] 600mg Take 1 Univers 600 mg -20 [id number] tablet by ity of tablet 00:00: mouth [place] 00 every 6 Medical (six) Branch hours as needed for Pain (scale 4-6). traMADoL 50 2020-07 Yes [id number] 50mg Take 1 Univ ers mg tablet 1-20 tablet by ity o f 00:00: mouth [place] 00 every 6 Medical (six) Branch hours as needed for Pain (scale 7-10). Indication s: acute pain ibuprofen 2020-07 Yes [id number] 600mg Take 1 Univers 600 mg 1-20 [id number] tablet by ity of tablet 00:00: mouth [place] 00 every 6 Medical (six) Branch hours as needed for Pain (scale 4-6). traMADoL 50 2020-07 Yes [id number] 50mg Take 1 Univ ers mg tablet 1-20 tablet by ity o f 00:00: mouth [place] 00 every 6 Medical (six) Branch hours as needed for Pain (scale 7-10). Indication s: acute pain ibuprofen 2020-07 Yes [id number] 600mg Take 1 Univers 600 mg 1-20 [id number] tablet by ity of tablet 00:00: mouth [place] 00 every 6 Medical (six) Branch hours as needed for Pain (scale 4-6). traMADoL 50 2020-07 Yes [id number] 50mg Take 1 Univ ers mg tablet 1-20 tablet by ity o f 00:00: mouth [place] 00 every 6 Medical (six) Branch hours as needed for Pain (scale 7-10). Indication s: acute pain ibuprofen 2020-07 Yes [id number] 600mg Take 1 Univers 600 mg 1-20 [id number] tablet by ity of tablet 00:00: mouth [place] 00 every 6 Medical (six) Branch hours as needed for Pain (scale 4-6). traMADoL 50 2020-07 Yes [id number] 50mg Take 1 Univ ers mg tablet 1-20 tablet by ity o f 00:00: mouth [place] 00 every 6 Medical (six) Branch hours as needed for Pain (scale 7-10). Indication s: acute pain ibuprofen 2020-07 Yes [id number] 600mg Take 1 Univers 600 mg 1-20 [id number] tablet by ity of tablet 00:00: mouth [...] Indication s: acute pain VASCEPA 1 Yes [id number] TAKE 3 U nivers gram 9-10 CAPSULES ity of capsule 00:00: BY MOUTH [place] 00 EVERY DAY Medical Branch VASCEPA 1 Yes [id number] TAKE 3 U nivers gram 9-10 CAPSULES ity of capsule 00:00: BY MOUTH [place] EVERY DAY Medical Branch VASCEPA 1 2020-0 Yes [id number] TAKE 3 U nivers gram 9-10 CAPSULES ity of capsule 00:00: BY MOUTH [place] EVERY DAY Medical Branch VASCEPA 1 2020-0 Yes [id number] TAKE 3 U nivers gram 9-10 CAPSULES ity of capsule 00:00: BY MOUTH [place] EVERY DAY Medical Branch VASCEPA 1 2020-0 Yes [id number] TAKE 3 U nivers gram 9-10 CAPSULES ity of capsule 00:00: BY MOUTH [place] EVERY DAY Medical Branch VASCEPA 1 2020-0 Yes [id number] TAKE 3 U nivers gram 9-10 CAPSULES ity of capsule 00:00: BY MOUTH [place] EVERY DAY Medical Branch icosapent 2020-0 2020- No [id number] 3g Take 3 Univers ethyL 6-02 09-10 capsules ity of (VASCEPA) 1 00:00: 00:00 by mouth [place] gram 00 :00 daily. Medical capsule Branch Lactobacill Yes Take by Un fabiana us 5-27 mouth. ity of acidophilus 22:32: [place] (PROBIOTIC 10 Medical ORAL) Branch MULTIVITAMI Yes Take by Un fabiana N ORAL 5-27 mouth. ity of 22:32: [place] [address] Medical Branch multivitami Yes Take by Un fabiana n with 5-27 mouth. ity of minerals 22:32: [place] (HAIR,SKIN 10 Medical AND NAILS Branch ORAL) Lactobacill Yes Take by Un fabiana us 5-27 mouth. ity of acidophilus 17:32: [place] (PROBIOTIC 10 Medical ORAL) Branch MULTIVITAMI Yes Take by Un fabiana N ORAL 5-27 mouth. ity of 17:32: [place] [address] Medical Branch multivitami Yes Take by Un fabiana n with 5-27 mouth. ity of minerals 17:32: [place] (HAIR,SKIN 10 Medical AND NAILS Branch ORAL) Lactobacill Yes Take by Un fabiana us 5-27 mouth. ity of acidophilus 17:32: [place] (PROBIOTIC 10 Medical ORAL) Branch MULTIVITAMI Yes [...] us 5-27 mouth. ity of acidophilus 17:32: [place] (PROBIOTIC 10 Medical ORAL) Branch MULTIVITAMI Yes [...] times Branch daily with meals. insulin Yes [id number] 35U inject 35 Univers degludec 4-30 Units ity of (TRESIBA 00:00: [place] FLEXTOUCH 00 skin 2 Medical U-100) 100 (two) Branch unit/mL (3 times mL) InPn daily. atorvastati Yes 40mg Take 1 Univ ers n 40 mg 4-30 tablet by ity of tablet 00:00: mouth at [place] bedtime. Medical Branch fenofibrate Yes 134mg Take 1 Uni vers micronized 4-30 capsule by ity of 134 mg 00:00: [place] 00 daily. Medical Branch metFORMIN Yes [id number] 1000mg Take 1 Univers 1,000 mg 4-30 tablet by ity of tablet 00:00: mouth (two) Medical times Branch daily with meals. blood sugar 0 Yes [id number] Use daily Univers diagnostic 4-30 Dx E11.65 ity of (ONETOUCH 00:00: [place] VERIO TEST 00 Medical STRIPS) Branch strip lancets 2020-0 Yes [id number] Use daily Univers (ONE TOUCH 4-30 Dx E11.65 ity of DELICA) 33 00:00: [place] gauge Misc 00 Medical Branch gabapentin 2020-0 Yes [id number] 600mg Take 1 Univers 600 mg 4-30 tablet by ity of tablet 00:00: mouth 2 (two) Medical times Branch daily. lisinopriL 0 Yes [id number] 2.5mg Take 1 Univers 2.5 mg 4-30 tablet by ity of tablet 00:00: mouth [place] 00 daily. Medical Branch insulin 0 Yes [id number] 35U inject 35 Univers degludec 4-30 Units ity of (TRESIBA 00:00: [place] FLEXTOUCH 00 skin 2 Medical U-100) 100 (two) Branch unit/mL (3 times mL) InPn daily. atorvastati Yes 40mg Take 1 Univ ers n 40 mg 4-30 tablet by ity of tablet 00:00: mouth at [place] 00 bedtime. Medical Branch fenofibrate Yes 134mg Take 1 Uni vers micronized 4-30 capsule by ity of 134 mg 00:00: mouth [place] capsule 00 daily. Medical Branch metFORMIN Yes [id number] 1000mg Take 1 Univers 1,000 mg 4-30 tablet by ity of tablet 00:00: mouth 2 [place] 00 (two) Medical times Branch daily with meals. blood sugar Yes [id number] Use daily Univers diagnostic 4-30 Dx E11.65 ity of (ONETOUCH 00:00: [place] VERIO TEST 00 Medical STRIPS) Branch strip lancets Yes [id number] Use daily Univers (ONE TOUCH 4-30 Dx E11.65 ity of DELICA) 33 00:00: [place] gauge Misc 00 Medical Branch gabapentin Yes [id number] 600mg Take 1 Univers 600 mg 4-30 tablet by ity of tablet 00:00: mouth 2 [place] 00 (two) Medical times Branch daily. lisinopriL Yes [id number] 2.5mg Take 1 Univers 2.5 mg 4-30 tablet by ity of tablet 00:00: mouth [place] 00 daily. Medical Branch insulin Yes [id number] 35U inject 35 Univers degludec 4-30 Units ity of (TRESIBA 00:00: [place] FLEXTOUCH 00 skin 2 Medical U-100) 100 (two) Branch unit/mL (3 times mL) InPn daily. atorvastati Yes 40mg Take 1 Univ ers n 40 mg 4-30 tablet by ity of tablet 00:00: mouth at [place] 00 bedtime. Medical Branch fenofibrate Yes 134mg Take 1 Uni vers micronized 4-30 capsule by ity of 134 mg 00:00: mouth [place] capsule 00 daily. Medical Branch metFORMIN Yes [id number] 1000mg Take 1 Univers 1,000 mg 4-30 tablet by ity of tablet 00:00: mouth 2 (two) Medical times Branch daily with meals. blood sugar 0 Yes [id number] Use daily Univers diagnostic 4-30 Dx E11.65 ity of (ONETOUCH 00:00: [place] VERIO TEST 00 Medical STRIPS) Branch strip lancets 0 Yes [id number] Use daily Univers (ONE TOUCH 4-30 Dx E11.65 ity of DELICA) 33 00:00: [place] [facility] 00 Medical Branch gabapentin Yes [id number] 600mg Take 1 Univers 600 mg 4-30 tablet by ity of tablet 00:00: mouth 2 [place] (two) Medical times Branch daily. lisinopriL Yes [id number] 2.5mg Take 1 Univers 2.5 mg 4-30 tablet by ity of tablet 00:00: mouth [place] 00 daily. Medical Branch insulin Yes [id number] 35U inject 35 Univers degludec 4-30 Units ity of (TRESIBA 00:00: [place] FLEXTOUCH 00 skin 2 Medical U-100) 100 (two) Branch unit/mL (3 times mL) InPn daily. atorvastati Yes 40mg Take 1 Univ ers n 40 mg 4-30 tablet by ity of tablet 00:00: mouth at [place] 00 bedtime. Medical Branch fenofibrate Yes 134mg Take 1 Uni vers micronized 4-30 capsule by ity of 134 mg 00:00: mouth [place] capsule 00 daily. Medical Branch metFORMIN Yes [id number] 1000mg Take 1 Univers 1,000 mg 4-30 tablet by ity of tablet 00:00: mouth 2 [place] (two) Medical times Branch daily with meals. blood sugar 0 Yes [id number] Use daily Univers diagnostic 4-30 Dx E11.65 ity of (ONETOUCH 00:00: [place] VERIO TEST 00 Medical STRIPS) Branch strip lancets 0 Yes [id number] Use daily Univers (ONE TOUCH 4-30 Dx E11.65 ity of DELICA) 33 00:00: [place] gauge Misc 00 Medical Branch gabapentin 0 Yes [id number] 600mg Take 1 Univers 600 mg 4-30 tablet by ity of tablet 00:00: mouth 2 [place] (two) Medical times Branch daily. lisinopriL 0 Yes [id number] 2.5mg Take 1 Univers 2.5 mg 4-30 tablet by ity of tablet 00:00: mouth [place] 00 daily. Medical Branch insulin 0 Yes [id number] 35U inject 35 Univers degludec 4-30 Units ity of (TRESIBA 00:00: [place] FLEXTOUCH 00 skin 2 Medical U-100) 100 (two) Branch unit/mL (3 times mL) InPn daily. atorvastati Yes 40mg Take 1 Univ ers n 40 mg 4-30 tablet by ity of tablet 00:00: mouth at [place] [address] bedtime. Medical Branch fenofibrate 0 Yes 134mg Take 1 Uni vers micronized 4-30 capsule by ity of 134 mg 00:00: mouth [facility] 00 daily. Medical Branch metFORMIN Yes [id number] 1000mg Take 1 Univers 1,000 mg 4-30 tablet by ity of tablet 00:00: mouth 2 [place] 00 (two) Medical times Branch daily with meals. blood sugar Yes [id number] Use daily Univers diagnostic 4-30 Dx E11.65 ity of (ONETOUCH 00:00: [place] VERIO TEST 00 Medical STRIPS) Branch strip lancets 2020-0 Yes [id number] Use daily Univers (ONE TOUCH 4-30 Dx E11.65 ity of DELICA) 33 00:00: [facility] 00 Medical Branch gabapentin 0 Yes [id number] 600mg Take 1 Univers 600 mg 4-30 tablet by ity of tablet 00:00: mouth 2 [place] 00 (two) Medical times Branch daily. lisinopriL 2020-0 Yes [id number] 2.5mg Take 1 Univers 2.5 mg 4-30 tablet by ity of tablet 00:00: mouth [place] 00 daily. Medical Branch insulin 0 Yes [id number] 35U inject 35 Univers degludec 4-30 Units ity of (TRESIBA 00:00: [place] FLEXTOUCH 00 skin 2 Medical U-100) 100 (two) Branch unit/mL (3 times mL) InPn daily. atorvastati Yes 40mg Take 1 Univ ers n 40 mg 4-30 tablet by ity of tablet 00:00: mouth at [place] 00 bedtime. Medical Branch fenofibrate Yes 134mg Take 1 Uni vers micronized 4-30 capsule by ity of 134 mg 00:00: mouth [place] capsule 00 daily. Medical Branch metFORMIN Yes [id number] 1000mg Take 1 Univers 1,000 mg 4-30 tablet by ity of tablet 00:00: mouth 2 [place] 00 (two) Medical times Branch daily with meals. blood sugar Yes [id number] Use daily Univers diagnostic 4-30 Dx E11.65 ity of (ONETOUCH 00:00: [place] VERIO TEST 00 Medical STRIPS) Branch strip lancets Yes [id number] Use daily Univers (ONE TOUCH 4-30 Dx E11.65 ity of DELICA) 33 00:00: [facility] 00 Medical Branch gabapentin Yes [id number] 600mg Take 1 Univers 600 mg 4-30 tablet by ity of tablet 00:00: mouth 2 [place] 00 (two) Medical times Branch daily. lisinopriL Yes [id number] 2.5mg Take 1 Univers 2.5 mg 4-30 tablet by ity of tablet 00:00: mouth [place] 00 daily. Medical Branch FREESTYLE 2020-0 Yes [id number] 1{each} 1 Each Univers BRENDA 14 3-03 every 14 ity of DAY SENSOR 00:00: (fourteen) [place] Kit 00 days. Medical Branch FREESTYLE 2020-0 Yes [id number] 1{each} 1 Each Univers BRENDA 14 3-03 daily. ity of DAY READER 00:00: [facility] 00 Medical Branch FREESTYLE 2020-0 Yes [id number] 1{each} 1 Each Univers BRENDA 14 3-03 every 14 ity of DAY SENSOR 00:00: (fourteen) [place] Kit 00 days. Medical Branch FREESTYLE 2020-0 Yes [id number] 1{each} 1 Each Univers BRENDA 14 3-03 daily. ity of DAY READER 00:00: [facility] 00 Medical Branch FREESTYLE 2020-0 Yes [id number] 1{each} 1 Each Univers BRENDA 14 3-03 every 14 ity of DAY SENSOR 00:00: (fourteen) [place] Kit 00 days. Medical Branch FREESTYLE 2020-0 Yes [id number] 1{each} 1 Each Univers BRENDA 14 3-03 daily. ity of DAY READER 00:00: [facility] 00 Medical Branch FREESTYLE 2020-0 Yes [id number] 1{each} 1 Each Univers BRENDA 14 3-03 every 14 ity of DAY SENSOR 00:00: (fourteen) [place] Kit 00 days. Medical Branch FREESTYLE 2020-0 Yes [id number] 1{each} 1 Each Univers BRENDA 14 3-03 daily. ity of DAY READER 00:00: [facility] 00 Medical Branch FREESTYLE 2020-0 Yes [id number] 1{each} 1 Each Univers BRENDA 14 3-03 every 14 ity of DAY SENSOR 00:00: (fourteen) [place] Kit 00 days. Medical Branch FREESTYLE 2020-0 Yes [id number] 1{each} 1 Each Univers BRENDA 14 3-03 daily. ity of DAY READER 00:00: [facility] 00 Medical Branch FREESTYLE 2020-0 Yes [id number] 1{each} 1 Each Univers BRENDA 14 3-03 every 14 ity of DAY SENSOR 00:00: (fourteen) [place] Kit 00 days. Medical Branch FREESTYLE 2020-0 Yes [id number] 1{each} 1 Each Univers BRENDA 14 3-03 daily. ity of DAY READER 00:00: [facility] Medical Branch traMADol 2018-07 Yes [id number] 50mg Take 1 Uni vers (ULTRAM) 50 2-28 tablet by ity of mg tablet 00:00: mouth [place] 00 every 6 Medical (six) Branch hours as needed for Pain (scale 7-10). ondansetron 2018-07 Yes [id number] 4mg Take 1 Univers (ZOFRAN) 4 2-28 tablet by ity of mg tablet 00:00: mouth [place] [address] every 8 Medical (eight) Branch hours as needed for Nausea and Vomiting (N/V). ondansetron 2018-07 Yes [id number] 4mg Take 1 Univers (ZOFRAN) 4 2-28 tablet by ity of mg tablet 00:00: mouth [place] [address] every 8 Medical (eight) Branch hours as needed for Nausea and Vomiting (N/V). ondansetron 2018-07 Yes [id number] 4mg Take 1 Univers (ZOFRAN) 4 2-28 tablet by ity of mg tablet 00:00: mouth [place] 00 every 8 Medical (eight) Branch hours as needed for Nausea and Vomiting (N/V). ondansetron 2018-07 Yes [id number] 4mg Take 1 Univers (ZOFRAN) 4 2-28 tablet by ity of mg tablet 00:00: mouth [place] 00 every 8 Medical (eight) Branch hours as needed for Nausea and Vomiting (N/V). ondansetron 2018-07 Yes [id number] 4mg Take 1 Univers (ZOFRAN) 4 2-28 tablet by ity of mg tablet 00:00: mouth [place] 00 every 8 Medical (eight) Branch hours as needed for Nausea and Vomiting (N/V). ondansetron 2018-07 Yes [id number] 4mg Take 1 Univers (ZOFRAN) 4 2-28 tablet by ity of mg tablet 00:00: mouth [place] 00 every 8 Medical (eight) Branch hours as needed for Nausea and Vomiting (N/V). traMADol 2018-07- No [id number] 50mg Take 1 Un fabiana (ULTRAM) 50 2-28 11-20 tablet by it y of mg tablet 00:00: 00:00 mouth [place] 00 :00 every 6 Medical (six) Branch hours as needed for Pain (scale 7-10). hydrOXYzine Yes [id number] 10mg Take 1 Univers 10 mg 9-13 tablet by ity of tablet 00:00: mouth [place] 00 every 6 Medical (six) Branch hours. hydrOXYzine Yes [id number] 10mg Take 1 Univers 10 mg 9-13 tablet by ity of tablet 00:00: mouth [place] 00 every 6 Medical (six) Branch hours. hydrOXYzine 2018- Yes [id number] 10mg Take 1 Univers 10 mg 9-13 tablet by ity of tablet 00:00: mouth [place] 00 every 6 Medical (six) Branch hours. hydrOXYzine 2018- Yes [id number] 10mg Take 1 Univers 10 mg 9-13 tablet by ity of tablet 00:00: mouth [place] 00 every 6 Medical (six) Branch hours. hydrOXYzine 2018- Yes [id number] 10mg Take 1 Univers 10 mg 9-13 tablet by ity of tablet 00:00: mouth [place] 00 every 6 Medical (six) Branch hours. hydrOXYzine 2018-0 Yes [id number] 10mg Take 1 Univers 10 mg 9-13 tablet by ity of tablet 00:00: mouth [place] 00 every 6 Medical (six) Branch hours. Lancets & 2013- Yes Univers Blood 2-14 ity of Glucose 00:00: [place] Strips (ONE 00 Medical TOUCH Branch COMBO) [facility] Lancets & 2013- Yes Univers Blood 2-14 ity of Glucose 00:00: [place] Strips (ONE 00 Medical TOUCH Branch COMBO) [facility] Lancets & 2012- Yes Univers Blood 2-14 ity of Glucose 00:00: [place] Strips (ONE 00 Medical TOUCH Branch COMBO) [facility] Lancets & 2012- Yes Univers Blood 2-14 ity of Glucose 00:00: [place] Strips (ONE 00 Medical TOUCH Branch COMBO) [facility] Lancets & 2012- Yes Univers Blood 2-14 ity of Glucose 00:00: [place] Strips (ONE 00 Medical TOUCH Branch COMBO) [facility] Lancets & 2012- Yes Univers Blood 2-14 ity of Glucose 00:00: [place] Strips (ONE 00 Medical TOUCH Branch COMBO) [facility] Blood-Gluco Yes Univer s se Meter 6-05 [...] Immunizations Ordered Filled Immunization Date Status Comments [facility] Immunization Name Name Pneumococcal 2020-05-21 Completed University o f Polysaccharide, 00:00:00 [place] Med ical PPSV23 (PNEUMOVAX) Branch TDAP 2020-05-21 Completed University of 00:00:00 [facility] Pneumococcal 2020-05-21 Completed University o f Polysaccharide, 00:00:00 [place] Med ical PPSV23 (PNEUMOVAX) Branch TDAP 2020-05-21 Completed University of 00:00:00 [facility] Pneumococcal 2020-05-21 Completed University o f Polysaccharide, 00:00:00 [place] Med ical PPSV23 (PNEUMOVAX) Branch TDAP 2020-05-21 Completed University of 00:00:00 [facility] Pneumococcal 2020-05-21 Completed University o f Polysaccharide, 00:00:00 [place] Med ical PPSV23 (PNEUMOVAX) Branch TDAP 2020-05-21 Completed University of 00:00:00 [facility] Pneumococcal 2020-05-21 Completed University o f Polysaccharide, 00:00:00 [place] Med ical PPSV23 (PNEUMOVAX) Branch TDAP 2020-05-21 Completed University of 00:00:00 [facility] Pneumococcal 2020-05-21 Completed University o f Polysaccharide, 00:00:00 [place] Med ical PPSV23 (PNEUMOVAX) Branch TDAP 2020-05-21 Completed University of 00:00:00 [facility] MMR 2013-07-25 Completed University of 00:00:00 [facility] MMR 2013-07-25 Completed University of 00:00:00 [facility] MMR 2013-07-25 Completed University of 00:00:00 [facility] MMR 2013-07-25 Completed University of 00:00:00 [facility] MMR 2013-07-25 Completed University of 00:00:00 [facility] MMR 2013-07-25 Completed University of 00:00:00 [facility] TDAP 2013-05-21 Completed University of 00:00:00 [facility] TDAP 2013-05-21 Completed University of 00:00:00 [facility] TDAP 2013-05-21 Completed University of 00:00:00 [facility] TDAP 2013-05-21 Completed University of 00:00:00 [facility] TDAP 2013-05-21 Completed University of 00:00:00 [facility] TDAP 2013-05-21 Completed University of 00:00:00 [facility] Influenza Virus 2013-03-19 Completed Universit y of Vaccine 00:00:00 [facility] Influenza Virus 2013-03-19 Completed Universit y of Vaccine 00:00:00 [facility] Influenza Virus 2013-03-19 Completed Universit y of Vaccine 00:00:00 [facility] Influenza Virus 2013-03-19 Completed Universit y of Vaccine 00:00:00 [facility] Influenza Virus 2013-03-19 Completed Universit y of Vaccine 00:00:00 [facility] Influenza Virus 2013-03-19 Completed Universit y of Vaccine 00:00:00 [facility] Rubella 2008-04-17 Completed University of 00:00:00 [facility] Rubella 2008-04-17 Completed University of 00:00:00 [facility] Rubella 2008-04-17 Completed [facility] 00:00:00 [facility] Rubella 2008-04-17 Completed [facility] 00:00:00 [facility] Rubella 2008-04-17 Completed [facility] 00:00:00 [facility] Rubella 2008-04-17 Completed [facility] 00:00:00 [facility] Td 2004-07-11 Completed [facility] 00:00:00 [facility] Td 2004-07-11 Completed [facility] 00:00:00 [facility] Td 2004-07-11 Completed [facility] 00:00:00 [facility] Td 2004-07-11 Completed [facility] 00:00:00 [facility] Td 2004-07-11 Completed [facility] 00:00:00 [facility] Td 2004-07-11 Completed [facility] 00:00:00 [facility] Vital Signs Vital Name Observation Time Observation Value Comments Source Systolic blood 2021-10-17 02:05:00 117 mm[Hg] Univer sity of pressure [facility] Diastolic blood 2021-10-17 02:05:00 63 mm[Hg] Unive rsity of pressure [facility] Heart rate 2021-10-17 02:05:00 76 /min [facility] Respiratory rate 2021-10-17 02:05:00 18 /min [facility] Oxygen saturation in 2021-10-17 02:05:00 98 /min [facility] Arterial blood by [facility] Pulse oximetry Branch Body temperature 2021-10-16 22:30:00 37.33 Lorenza [facility] weight 2021-10-16 21:38:00 103.42 [facility] BMI 2021-10-16 21:38:00 37.94 kg/m2 [facility] Systolic blood 2021-09-22 17:00:00 108 mm[Hg] [facility]iver [facility] Diastolic blood 2021-09-22 17:00:00 77 mm[Hg] Unive rsity of pressure [facility] Heart rate 2021-09-22 17:00:00 90 /min [facility] Oxygen saturation in 2021-09-22 17:00:00 97 /min [facility] Arterial blood by [place] [facility] Pulse oximetry Branch Respiratory rate 2021-09-22 15:00:00 18 /min [facility] Body temperature 2021-09-22 14:52:00 37.11 Lorenza [facility] Body weight 2021-09-22 14:52:00 103.42 kg [facility] BMI 2021-09-22 14:52:00 37.94 kg/m2 [facility] Systolic blood 2021-06-18 12:00:00 142 mm[Hg] [facility] Diastolic blood 2021-06-18 12:00:00 94 mm[Hg] Unive rsity of [facility] Heart rate 2021-06-18 12:00:00 98 /min [facility] [place] [facility] Body temperature 2021-06-18 12:00:00 36.56 Lorenza [facility] Respiratory rate 2021-06-18 12:00:00 13 /min [facility] Oxygen saturation in 2021-06-18 12:00:00 95 /min [facility] Arterial blood by [employer] Pulse oximetry Branch Body height 2021-06-18 10:37:00 165.1 cm [facility] Body weight 2021-06-18 10:37:00 107.502 kg [facility] BMI 2021-06-18 10:37:00 39.44 kg/m2 [facility] Systolic blood 2021-05-31 01:34:00 139 mm[Hg] [facility]iver [facility]ity [facility] Diastolic blood 2021-05-31 01:34:00 90 mm[Hg] [facility] Heart rate 2021-05-31 01:34:00 112 /min [facility] Respiratory rate 2021-05-31 01:34:00 20 /min [facility] Oxygen saturation in 2021-05-31 01:34:00 98 /min [facility] blood by [facility] Pulse oximetry Branch Body weight 2021-05-30 21:47:00 107.502 kg [facility] BMI 2021-05-30 21:47:00 40.68 kg/m2 [facility] Procedures Procedure Date / Time Performed Performing Clinician Sourc e POCT GLUCOSE 2021-10-17 01:49:00 Beatriz Eduardo [facility] (AUTOMATED) [facility] POCT GLUCOSE(AGE 2021-10-17 00:41:00 Beatriz Eduardo [facility] >30DAYS) [facility] POCT GLUCOSE 2021-10-17 00:40:00 Beatriz Eduardo [facility] (AUTOMATED) [facility] BLOOD CULTURE SCREEN 2021-10-16 23:26:00 Beatriz Eduardo [facility] BLOOD CULTURE SCREEN 2021-10-16 23:03:00 Beatriz Eduardo [facility] TROPONIN I 2021-10-16 23:03:00 Beatriz Eduardo [facility] COMP. METABOLIC PANEL 2021-10-16 23:03:00 Beatriz Eduardo [facility] ([id number]) [facility] CBC WITH DIFF 2021-10-16 23:03:00 Beatriz Eduardo [facility] URINALYSIS 2021-10-16 23:03:00 Beatriz Eduardo [facility] N-TERMINAL PRO-BNP 2021-10-16 23:03:00 Beatriz Eduardo [facility] LACTIC ACID WHOLE 2021-10-16 23:01:00 Beatriz Eduardo [facility] CT ABDOMEN PELVIS WO 2021-10-16 22:40:13 Beatriz Eduardo [facility] POCT TEST 2021-10-16 22:34:00 Beatriz Eduardo [facility] CONSENT/REFUSAL FOR 2021-10-16 21:34:04 Doctor Unassigned, No [facility] Name [facility] ABDOMEN PELVIS WO 2021-09-22 15:59:44 Jn Gallagher [facility] CONTRAST [facility] POCT TEST 2021-09-22 15:18:00 Jn Gallagher [facility] COMP. METABOLIC PANEL 2021-09-22 15:16:00 Singer [facility] ([id number]) [facility] CBC WITH DIFF 2021-09-22 15:16:00 [facility] 2021-09-22 14:58:00 Singer [facility] CONSENT/REFUSAL FOR 2021-09-22 14:47:03 Doctor Unassigned, No [facility] Name [facility] TREATMENT POCT GLUCOSE 2021-06-18 13:04:00 Fozia Jang [facility] (AUTOMATED) [facility] CT ABDOMEN PELVIS WO 2021-06-18 12:58:31 Fozia Jang [facility] POCT TEST 2021-06-18 11:06:00 Fozia Jang [facility] CREATINE KINASE 2021-06-18 10:50:00 Lionel Park [facility] COMP. METABOLIC PANEL 2021-06-18 10:50:00 Fozia Jang [facility] ([id number]) Medical Branch CBC WITH DIFF 2021-06-18 10:50:00 Fozia Jnag [facility] URINALYSIS 2021-06-18 10:50:00 Fozia Jang [facility] RAPID INFLUENZA A/B 2021-06-18 10:50:00 Fozia Jang [facility] COVID-19 (ID NOW RAPID 2021-06-18 10:50:00 Fozia Jang [facility] TESTING) [facility] NOTICE OF PRIVACY 2021-06-18 10:24:00 Doctor Unassigned, No [facility] [place] [facility] Name [facility] CONSENT/REFUSAL FOR 2021-06-18 10:21:45 Doctor Unassigned, No Un [facility] [place] DIAGNOSIS AND Name [facility] TREATMENT CT ABDOMEN PELVIS W 2021-05-30 23:52:43 Mary Espinosa [facility] CONTRAST Medical [facility] CT HEAD WO CONTRAST 2021-05-30 23:52:13 Mary Espinosa [facility] XR CHEST 1 VW 2021-05-30 22:38:06 Mary Espinosa [place] o f [facility] XR HAND 3+ VW LEFT 2021-05-30 22:38:06 [facility] XR FOREARM 2 VW LEFT 2021-05-30 22:28:08 Mary Espinosa [facility] CONSENT/REFUSAL FOR 2021-05-30 21:39:04 Doctor Unassigned, No [facility] [place] DIAGNOSIS AND Name Medical [facility] TREATMENT 83.71 2010-08-05 00:00:00 [facility] 77.98 2010-08-05 00:00:00 [facility] Encounters Start End Encounter Admission Attending Care Care Encounter Source Date/Time Date/Time Type Type Clinicians Facility Department ID 2021-05-10 Emergency [facility] [id number] Univers 21:18:12 ity [facility] 2021-05-10 Emergency [facility] [id number] Univers 15:04:50 ity [facility] 2021-05-08 Emergency [facility] [id number] [facility]-08 Inpatient Bebeto Valderrama HCATO RADI [id number] [facility] 15:30:00 [facility] 2020-08-02 Inpatient HCATO CARISSA [id number] [facility] 13:01:00 [id number] [facility] 2020-02-13 Inpatient HCATO CARISSA [id number] [facility] 19:15:00 [id number] [facility] 2020-01-16 Inpatient ERICA Katie, HCAT[facility] SURG [id number] [facility] 16:00:00 Elbert 50934 [facility] 2021-10-16 2021-10-16 [facility] [id number] Univers 16:39:00 22:23:00 BEATRIZ diaz [facility] 2021-10-16 2021-10-16 Emergency [facility] [id number] Univers 16:39:00 22:23:00 Beatriz [facility] [id number] ity [facility] [id number] [facility] [id number] [address] 2021-09-22 2021-09-22 Emergency X [facility] [place] ERT [id number] Univers 09:56:00 12:05:00 JN idaz [facility] 2021-09-22 2021-09-22 Emergency [facility] [id number] Univers 09:56:00 12:05:00 Jnyariel [facility] [id number] i ty [facility] [id number] [facility] [id number] [address] 2021-08-20 2021-08-20 Cam [facility] [place] [id number] Univers 00:00:00 00:00:00 [facility] [id number] it y kristyn [place] 4.2.7.2.686 Blake as DANIELITO?BLEA [id number] [address] MEDICAL OFFICE BUILDING 2021-07-31 2021-07-31 Outpatient Bebeto Valderrama DAYS [id number] [facility] 05:47:00 05:47:00 [facility] 2021-07-31 2021-07-31 Outpatient Bebeto Valderrama [facility] [id number] [facility] 05:47:00 05:47:00 00 [facility] 2021-06-18 2021-06-18 Emergency X [facility] [place] [id number] Univers 04:31:00 08:25:00 FOZIA emily [facility] 2021-06-18 2021-06-18 Emergency [facility] [id number] Univers 04:31:00 08:25:00 Fozia Nakul GAGETON [id number] ity of [place] [id number] [facility] [id number] [address] 2021-06-10 2021-06-10 Outpatient [facility] [id number] [place] 00:00:00 00:00:[address] 2021-05-30 2021-05-30 Emergency X [facility] [place]RT [id number] Univers 15:49:00 19:42:00 [facility] 2021-05-30 2021-05-30 Emergency [facility] [id number] Univers 15:49:00 19:42:00 Mary Mota SUNIL [id number] i ty of [place] [id number] [facility] [id number] [address] 2021-03-17 2021-03-17 Refill [facility] [id number] Univers 00:00:00 00:00:00 Doron Banuelos [id number] i ty of [place] 4.2.7.2.686 [facility] [id number] Pr dical [facility] 220 [facility] 2021-02-27 2021-02-27 [facility]patient [facility] [id number] Univers 15:00:00 15:00:00 DORON [id number] [facility] 2021-02-27 2021-02-27 Outpatient R [facility] [id number] Univers 15:00:00 15:00:00 DORON [facility] 2021-02-19 2021-02-19 Outpatient Anupama GONZALEZ [facility] [id number] Univers 11:30:00 11:30:00 SENDIL [id number] [facility] 2021-01-02 2021-01-02 Outpatient R ROBBIE [facility] [id number] Univers 11:15:00 11:15:00 [place] [id number] [facility] 2020-12-23 2020-12-23 Outpatient R ROBBIE [facility] [id number]-20 Univers 16:00:00 16:00:00 FABIO [id number] [facility] 2020-12-23 2020-12-23 Outpatient R ROBBIE [facility] [id number] Univers 16:00:00 16:00:00 [facility] 2020-12-19 2020-12-19 Outpatient R ROBBIE [facility] [id number] Univers 11:00:00 11:00:00 FABIO [id number] [facility] 2020-12-10 2020-12-10 Outpatient R LISA [facility] [id number] Univers 09:00:00 09:53:04 SENDIL [facility] 2020-12-10 2020-12-10 Outpatient R LISA [facility] [id number] Univers 09:00:00 09:00:00 SENDIL [id number] [facility] 2020-11-07 2020-11-07 Outpatient R VALENTINE [facility] [id number] Univers 13:30:00 13:30:00 DORON [facility] 2020-06-02 2020-06-02 Telephone [facility] [id number] 00:00:00 00:00:00 Lily Banuelos [id number] [place] [id number] [facility] [id number] [address] 2020-05-29 2020-05-29 Outpatient R LUIS [facility] [id number] Univers 15:15:00 15:15:00 LESLEE [id number] [facility] 2020-05-29 2020-05-29 Outpatient [facility] [id number] Univers 15:15:00 15:15:00 LESLEE [facility] 2020-05-27 2020-05-27 Office [facility] [id number] 10:59:24 11:54:17 Visit Lily Love.1.13.10 [place] [id number] [facility] [id number] [facility] 134 [facility] 2020-05-27 2020-05-27 Outpatient R ADRIENNE [facility] [id number] Univers 10:45:00 10:45:00 LILY [id number] y [facility] 2020-05-27 2020-05-27 Outpatient R ADRIENNE [facility] [id number] Univers 10:45:00 10:45:00 LILY [facility] 2020-05-27 2020-05-27 Orders Doctor ARLENE [id number] 00:00:00 00:00:00 Only Unassigned, BENITA 350.1.13.10 [place] [facility] 4.2.7.2.686 [id number] 2020-01-10 2020-01-10 [facility] HCACL LABO [id number] [facility] 18:46:00 18:46:00 Tomiko [id number] [facility] 2020-01-10 2020-01-10 [facility] HCATO SURG [id number] [facility] 16:00:00 16:00:00 Tomiko 31324 [facility] 2020-01-04 2020-01-04 Outpatient Fukuda, HCATO RADI [id number] [facility] 13:00:00 13:00:00 Tomiko [id number] [facility] 2019-12-12 2019-12-12 Outpatient R CORINNE [facility] [id number] Univers 16:30:00 16:30:00 STANISLAW [id number] [facility] 2019-12-12 2019-12-12 Outpatient R CORINNE [facility] [id number] Univers 16:30:00 16:30:00 STANISLAW [facility] 2019-12-07 2019-12-07 Outpatient Anupama THOMPSON [facility] [id number] Univers 09:00:00 09:00:00 DORON diaz [facility] 2019-11-22 2019-11-22 Outpatient ERNST, [facility] [id number] [address] [place] [address] 00:00:00 00:00:00 SILVINA porras 2019-11-06 2019-11-06 Outpatient ANTOSH, [facility] [id number] [place] 00:00:00 00:00:00 [address] 2019-11-01 2019-11-01 Outpatient ANTOSH, [facility] [id number] [place] 00:00:00 00:00:00 SILVINA [address] 2019-10-30 2019-10-30 Outpatient GALAN, [facility] [id number] [place] 00:00:00 00:00:00 ABHIJIT [address] 2019-10-18 2019-10-18 Outpatient ANTOSH, [facility] [id number] [place] 00:00:00 00:00:00 SILVINA [address] 2019-10-02 2019-10-02 Outpatient ANTOSH, [facility] [id number] [place] 00:00:00 00:00:00 SILVINA [address] 2019-10-01 2019-10-01 Outpatient ANTOSH, [facility] [id number] [place] 00:00:00 00:00:00 SILVINA [address] 2019-09-19 2019-09-19 Outpatient ANTOSH, [facility] [id number] [place] 00:00:00 00:00:00 SILVINA [address] 2019-09-11 2019-09-11 Outpatient Anup[facility] [id number] Univers 10:30:00 10:30:00 STANISLAW [id number] [facility] 2019-09-11 2019-09-11 Outpatient Anupama [facility] [id number] Univers 10:30:00 10:30:00 STANISLAW [facility] 2019-09-10 2019-09-10 Outpatient GALAN, [facility] [id number] [place] 00:00:00 00:00:00 ABHIJIT [address] 2019-09-10 2019-09-10 Outpatient ANTOSH, [facility] [id number] [place] 00:00:00 00:00:00 SILVINA [address] 2019-09-10 2019-09-10 Outpatient ANTOSH, [facility] [id number] [place] 00:00:00 00:00:00 SILVINA [address] 2019-08-23 2019-08-23 Outpatient R ADRIENNE [facility] [id number] Univers 16:15:00 10:31:44 LILY isaac [facility] 2019-08-15 2019-08-15 Outpatient R ADRIENNE [facility] [id number] Univers 09:15:00 09:44:35 LILY [facility] 2019-07-07 2019-07-07 Emergency X LAINE [facility] ERT [id number] Univers 10:13:53 13:06:00 KATELYNASHUTOSH isaac [facility] 2010-08-05 2010-08-07 Inpatient OUTP Kit Lopez HCATO SURG [id number] [facility] 16:20:00 14:00:00 [id number] [facility] Results Test Description Test Time Test Comments Results Result Comments Source VITAMIN D, 25 OH 2021-11-24 04:13:44 Test Item Value Reference Range Interpretation Comme nts VITAMIN D, 25 OH (test code 18 NG/ML SEE BELOW L NOTE: 25-HYDROXYVITAMIN D ASSAY = 4958) INCLUDES 25-HYD ROXYVITAMIN D2 AND D3. METHOD OLOGY IS CHEMILUMINESCEN T IMMUNOASSAY. I NTERPRETIVE RANGES PEDIATRIC (<17 YEARS) . . . . . . . . . . . NG/ ML 20-100ADULT: I NSUFFICIENT . . . . . . . . . . . . . . NG/ML <20 SUBOPTI MAL . . . . . . . . . . . . . . . NG/ ML 20-29 OPTIMAL . . . . . . . . . . . . . . . . . NG/ML 30-100 UNLESS OTHERWIS E INDICATED, ALL TESTING PERFORM ED ATCLINICAL PATHOLOGY [employer] [address] [place] [address] LABORATORY DIRE CTOR: NOAH DICKENS M.D. CLIA NUMBER [id number] [place]. [id number] HIV 1/2 4TH GEN, RFLX [id number] 03:26:41 Test Item Value Reference Range Interpretation Comments HIV 1/2 4TH GEN, RFLX CONF (test NON-REACTIVE NON-REACTIVE code = 3514) ALBUMIN, URINE, [id number] 02:46:02 Test Item Value Reference Range Interpretation Comments ALBUMIN, URINE, RANDOM (test code 10.2 MG/DL NOT ESTAB = 43170) LIPID [id number] 02:15:07 Test Item Value Reference Range Interpretation Comments CHOLESTEROL (test 206 MG/DL <200 H code = 2210) TRIGLYCERIDES (test 1120 MG/DL <150 H SPE CIMEN LIPEMIC code = 2232) RESULTS RECHECK ED AND VERIFIED HDL CHOLESTEROL 24 MG/DL >39 L (test code = 2220) CALC LDL CHOL (test (NOTE) MG/DL <100 UNABLE T O CALCULATE A code = 2237) VALID LDL KATTY STEROL WHEN THE TRIGLYCERIDEVAL UE IS GREATER THAN 40 0 MG/DL.UNABLE TO CALCULATE A ANGELA ID LDL CHOLESTEROL WHE N THE TRIGLYCERIDEVAL UE IS GREATER THAN 40 0 MG/DL. NOTE: CALCULATE D LDL IS BASED ON RICK -RASHID METHOD WHICHINC LUDES ADJUSTABLE TRIGLYCERIDE:VL DL CHOLESTEROL RAT IO.THIS FACTOR VARIES B Y MEASURED TRIGLY CERIDE AND NON-HDLCHOL ESTEROL CONCENTRATIONS WITH INCREASED CALCU LATED LDL SEENIN HIGH ER TRIGLYCERIDE OR LOWER NON-HDL SPECIME NS. FOR MOREINFORMATION , SEE CLIENT ANNOUNCE MENT AT [email or web address] CalcLDL-C RISK RATIO LDL/HDL (NOTE) RATIO <3.22 (test code = 2238) UNABLE TO CALCULATE COMPREHENSIVE METABOLIC [id number] 02:15:07 Test Item Value Reference Range Interpretation Comments GLUCOSE (test code = 349 MG/DL 70-99 H 2216) BUN (test code = 17 MG/DL 6-20 2207) CREATININE (test 0.80 MG/DL 0.60-1.30 code = 2214) eGFR (2020 CKD-EPI) 94 ML/MIN/1.73 >60 (test code = 18555) CALC BUN/CREAT (test 21 RATIO 6-28 code = 2235) SODIUM (test code = 137 MEQ/L [phone]) POTASSIUM (test code 4.2 MEQ/L 3.5-5.4 = 2227) CHLORIDE (test code 99 MEQ/L 95-107 = 2214) CARBON DIOXIDE (test 16 MEQ/L 19-31 L code = 220) CALCIUM (test code = 10.0 MG/DL 8.5-10.5 2208) PROTEIN, TOTAL (test 7.8 G/DL 6.1-8.3 code = 2228) ALBUMIN (test code = 4.8 G/DL 3.5-5.2 2200) CALC GLOBULIN (test 3.0 G/DL 1.9-3.7 code = 224) CALC A/G RATIO (test 1.6 RATIO 1.0-2.6 code = 2234) BILIRUBIN, TOTAL 0.2 MG/DL See_Comment [Automated message] (test code = 2206) The syste m which generated this result transmit faith reference range : <=1.2. The refe rence range was not u sed to interpret th is result as normal/abnormal . ALKALINE PHOSPHATASE 69 U/L 40-113 (test code = 2203) AST (test code = 21 U/L 9-40 2217) ALT (test code = 39 U/L 5-40 2218) HEMOGLOBIN [id number] 04:43:57 Test Item Value Reference Range Interpretation Comments HEMOGLOBIN A1c (test 11.5 % 4.2-5.6 H [facility] code = 06501) ASSOCIATION IDELINES FOR HGB A1C: PREDIABETES/INC REASED [...] ALTERNATE TESTI NG OR LABORATORY CONS ULTATION. CULTURE, [id number] 11:34:56SPECIMEN NUMBER: [id number] CULTURE, URINE SPECIMEN NUMBER: [id number] SPECIMEN COMMENT: URINE SOURCE: URINE REPORT STATUS: FINAL FINAL REPORT: 10/25/2021 10- 50,000 CFU/ML UROGENITAL NORMA PRESENT NO COMMON PATHOGENS VAGINAL PATHOGENS DNA [id number] 11:55:20 Test Item Value Reference Range Interpretation Comments ANDIE SPECIES (test NEGATIVE NEGATIVE code = ) G. VAGINALIS (test NEGATIVE NEGATIVE code = ) T. VAGINALIS (test NEGATIVE NEGATIVE UN LESS OTHERWISE code = ) INDICATED, ALL TESTING PERFORMED ATCLI NICAL PATHOLOGY LABOR ATORIES, [facility]. [address] [place] [address] 78 4 LABORATORY DIR JENNIFER: NOAH TODD M.D. CLIA NUMBER [id number] CAP ACCREDITATION N O. [id number] POCT GLUCOSE (AUTOMATED)2021-10-17 01:51:54 Test Item Value Reference Range Interpretation Comments POCT GLU (test code = 7871647610) 365 mg/dL 70-110 H Lab Interpretation (test code = Abnormal 70838-5) [facility] GLUCOSE (AUTOMATED)2021-10-17 00:46:51 Test Item Value Reference Range Interpretation Comments POCT GLU (test code = 6483202850) 435 mg/dL 70-110 H Lab Interpretation (test code = Abnormal 74148-7) [facility] GLUCOSE(AGE >30DAYS)2021-10-17 00:41:00 Test Item Value Reference Range Interpretation Comments POCT Glu (age>30days) (test code = 435 mg/dL 70-110 A 3342) Lab Interpretation (test code = Abnormal 41593-8) [facility] [id number] 23:40:42 Test Item Value Reference Interpretation Comments Range TROPONIN I (test 0.001 ng/mL See_Comment [Automated code = 3907297273) message] The system which generated this result [...] biotin. Lab Interpretation Normal (test code = 95050-9) [facility] [id number] 23:37:40 Test Item Value Reference Range Interpretation Comments NT-proBNP (test code 20 pg/mL See_Comment [Autom ated = [id number]) message] The system which generated this result transmitted reference range : <=125. The reference range was not used to interpret this result as normal/abnormal . CALVIN (test code = CALVIN) Biotin has been reported to cause a negative bias, interpret results relative to patient's use of biotin. Lab Interpretation Normal (test code = 45893-3) [facility]. METABOLIC PANEL (57294)2021-10-16 23:29:18 Test Item Value Reference Range Interpretation Comments NA (test code = 134 mmol/L 135-145 L 7262682139) K (test code = 4.4 mmol/L 3.5-5.0 0172496317) CL (test code = 97 mmol/L 98-108 L 1348417943) CO2 TOTAL (test code = 23 mmol/L 23-31 6746292785) AGAP (test code = 2-16 1737869053) BUN (test code = 21 mg/dL 7-23 5781593769) GLUCOSE (test code = 431 mg/dL 70-110 H 2070779485) CREATININE (test code = 0.88 mg/dL 0.50-1.04 6330950359) TOTAL BILI (test code = 0.5 mg/dL 0.1-1.9 5777631003) CALCIUM (test code = 9.2 mg/dL 8.6-10.6 0385550866) T PROTEIN (test code = 7.4 g/dL 6.3-8.2 6266235787) ALBUMIN (test code = 4.7 g/dL 3.5-5.0 7551316911) ALK PHOS (test code = 52 U/L 34-122 9079190818) ALTv (test code = 30 U/L 5-35 1742-6) AST(SGOT) (test code = 25 U/L 13-40 9239739718) eGFR (test code = mL/min/1.73m2 1119767463) CALVIN (test code = CALVIN) Association of [...] tests). Lab Interpretation Abnormal (test code = 42045-0) [facility] WITH [id number] 23:20:10 Test Item Value Reference Range Interpretation Comments WBC (test code = See_Comment [Automated 4085-2) message] The sy stem which generated this result transmitted reference range : 4.30 - 11.10 10*3/?L. The reference range was not used to interpret this result as normal/abnormal . RBC (test code = See_Comment [Automated 272-8) message] The sy stem which generated this [...] RDW-SD (test code = 40.5 fL 39.0-49.9 84497-5) RDW-CV (test code = 13.5 % 12.0-15.5 788-0) PLT (test code = See_Comment [Automated 777-3) message] The sy stem which generated this result transmitted reference range : 166 - 358 10*3/ ?L. The reference r doretha was not used to interpret this result as normal/abnormal . MPV (test code = 9.6 fL 9.5-12.9 22213-0) NRBC/100 WBC (test See_Comment [Automat ed code = 8413081781) message] The system which generated this result transmitted reference range : 0.0 - 10.0 /100 WBCs. The refer ence range was not u sed to interpret th is result as normal/abnormal . NRBC x10^3 (test code <0.01 See_Comment [Auto mated = 6242780636) message] The s ystem which generated this result transmitted reference range : 10*3/?L. The reference range was not used to interpret this result as normal/abnormal . GRAN MAT (NEUT) % 43.2 % (test code = 770-8) IMM GRAN % (test code 0.70 % = 4786557482) LYMPH % (test code = 42.8 % 736-9) MONO % (test code = 9.2 % 5905-5) EOS % (test code = 3.0 % 713-8) BASO % (test code = 1.1 % 706-2) GRAN MAT x10^3(ANC) 3.15 10*3/uL 1.88-7.09 (test code = 4186213683) IMM GRAN x10^3 (test 0.05 10*3/uL 0.00-0.06 code = 8401549119) LYMPH x10^3 (test code 3.12 10*3/uL 1.32-3.29 = 731-0) MONO x10^3 (test code 0.67 10*3/uL 0.33-0.92 = 742-7) EOS x10^3 (test code = 0.22 10*3/uL 0.03-0.39 711-2) BASO x10^3 (test code 0.08 10*3/uL 0.01-0.07 H = 704-7) Lab Interpretation Abnormal (test code = 03752-4) [facility] [id number] 23:09:32 Test Item Value Reference Range Interpretation Comments LACTIC ACID (test code = 1.94 mmol/L 0.50-2.20 6338888473) Lab Interpretation (test code = Normal 11821-9) [facility] [id number] 22:34:00 Test Item Value Reference Range Interpretation Comments POCT PREG (test code = 1605) Negative On board controls acceptable with Present C Line (test code = 3574) POCT PREG LOT # (test code = 3575) [id number] POCT PREG TEST DATE (test 2023-04-09 code = 3576) Lab Interpretation (test code = Normal 34968-3) [facility], [id number] 08:52:36SPECIMEN NUMBER: [id number] CULTURE, URINE SPECIMEN NUMBER: [id number] SPECIMEN COMMENT: URINE SOURCE: URINE REPORT STATUS: FINAL FINAL REPORT: 10/12/2021 >100,000 CFU/ML UROGENITAL NORMA PRESENT NO COMMON PATHOGENS UNLESS OTHERWISE INDICATED, ALL TESTING PERFORMED [facility] [address] [place] [address] TRACK WATCHMAN: NOAH DICKENS M.D. CLIA NUMBER [id number] [place]. [id number] CULTURE, NO SENS 2021-10-08 09:46:36SPECIMEN NUMBER: [id number] URINE CULTURE, NO SENS SPECIMEN NUMBER: [id number] SPECIMEN COMMENT: URINE SOURCE: URINE REPORT STATUS: FINAL FINAL REPORT: 10/08/2021 50-100,000 CFU/ML UROGENITAL NORMA PRESENT NO COMMON PATHOGENSCBC W/AUTO DIFF WITH [id number] 07:54:02 Test Item Value Reference Range Interpretation [...] RBCS 0.00 K/UL 0.00-0.11 (test code = 15078) COMPREHENSIVE METABOLIC [id number] 05:34:02 Test Item Value Reference Range Interpretation Comments GLUCOSE (test code = 108 MG/DL 70-99 H 2216) BUN (test code = 17 MG/DL 6-20 2207) CREATININE (test 0.84 MG/DL 0.60-1.30 code = 221) eGFR (2020 CKD-EPI) 88 >60 (test code = 00991) ML/MIN/1.73 CALC BUN/CREAT (test 20 RATIO 6-28 code = 2235) SODIUM (test code = 141 MEQ/L 965-805 3285) POTASSIUM (test code 4.0 MEQ/L 3.5-5.4 = 2227) CHLORIDE (test code 100 MEQ/L 95-107 = 2215) CARBON DIOXIDE (test 23 MEQ/L 19-31 code = 2206) CALCIUM (test code = 10.3 MG/DL 8.5-10.5 2208) PROTEIN, TOTAL (test 7.6 G/DL 6.1-8.3 code = 222) ALBUMIN (test code = 4.7 G/DL 3.5-5.2 2200) CALC GLOBULIN (test 2.9 G/DL 1.9-3.7 code = 2240) CALC A/G RATIO (test 1.6 RATIO 1.0-2.6 code = 223) BILIRUBIN, TOTAL <0.2 MG/DL See_Comment [Automated message] (test code = 2206) The [employer] which generated this result transmitted ref erence range: <=1.2. T he reference range was not used to int erpret this result as normal/abnormal . ALKALINE PHOSPHATASE 51 U/L 40-113 (test code = 2203) AST (test code = 22 U/L 9-40 2217) ALT (test code = 28 U/L 5-40 UNLE SS 2218) OTHERWISE INDIC ATED, ALL TESTING PER FORMED [facility] [place] [address] [place] [address] LABORATORY DIRE CTOR: NOAH TODD M.D. CLIA NUMBER [id number] CAP ACCREDITATION N O. [id number] COMP. METABOLIC PANEL (93350)2021-09-22 15:36:43 Test Item Value Reference Range Interpretation Comments NA (test code = 133 mmol/L 135-145 L 3647557344) K (test code = 4.8 mmol/L 3.5-5.0 4924753698) CL (test code = 96 mmol/L 98-108 L 7619092003) CO2 TOTAL (test code = 21 mmol/L 23-31 L 4524076616) AGAP (test code = 2-16 1841575252) BUN (test code = 30 mg/dL 7-23 H 8355586712) GLUCOSE (test code = 405 mg/dL 70-110 H 5270895133) CREATININE (test code = 0.74 mg/dL 0.50-1.04 8512544115) TOTAL BILI (test code = 0.6 mg/dL 0.1-1.5 7763497557) CALCIUM (test code = 9.7 mg/dL 8.6-10.6 5213414562) T PROTEIN (test code = 7.9 g/dL 6.3-8.2 3621447329) ALBUMIN (test code = 4.9 g/dL 3.5-5.0 9325020301) ALK PHOS (test code = 66 U/L 34-122 0743651618) ALTv (test code = 37 U/L 5-35 H 2-6) AST(SGOT) (test code = 31 U/L 13-40 0783171621) eGFR (test code = mL/min/1.73m2 8763329725) CALVIN (test code = CALVIN) Association of [...] tests). Lab Interpretation Abnormal (test code = 01725-5) [facility] WITH [id number] 15:26:02 Test Item Value Reference Range Interpretation Comments WBC (test code = See_Comment [Automated 4090-2) message] The sy stem which generated this [...] (test code = 38.2 fL 39.0-49.9 L 86276-0) RDW-CV (test code = 12.9 % 12.0-15.5 788-0) PLT (test code = See_Comment [Automated 777-3) message] The sy stem which generated this result transmitted reference range : 166 - 358 10*3/ ?L. The reference r doretha was not used to interpret this result as normal/abnormal . MPV (test code = 9.8 fL 9.5-12.9 58284-2) NRBC/100 WBC (test See_Comment [Automat ed code = 4829479652) message] The system which generated this result transmitted reference range : 0.0 - 10.0 /100 WBCs. The refer ence range was not u sed to interpret th is result as normal/abnormal . NRBC x10^3 (test code <0.01 See_Comment [Auto mated = 0146362546) message] The s ystem which generated this result transmitted reference range : 10*3/?L. The reference range was not used to interpret this result as normal/abnormal . GRAN MAT (NEUT) % 50.6 % (test code = 770-8) IMM GRAN % (test code 0.80 % = 5980762022) LYMPH % (test code = 37.0 % 736-9) MONO % (test code = 8.5 % 5905-5) EOS % (test code = 2.2 % 713-8) BASO % (test code = 0.9 % 706-2) GRAN MAT x10^3(ANC) 3.86 10*3/uL 1.88-7.09 (test code = 3169925437) IMM GRAN x10^3 (test 0.06 10*3/uL 0.00-0.06 code = 9728207612) LYMPH x10^3 (test code 2.83 10*3/uL 1.32-3.29 = 731-0) MONO x10^3 (test code 0.65 10*3/uL 0.33-0.92 = 742-7) EOS x10^3 (test code = 0.17 10*3/uL 0.03-0.39 711-2) BASO x10^3 (test code 0.07 10*3/uL 0.01-0.07 = 704-7) Lab Interpretation Abnormal (test code = 11123-4) [facility] [id number] 15:18:00 Test Item Value Reference Range Interpretation Comments POCT PREG (test code = 1605) negative On board controls acceptable with present C Line (test code = 3574) POCT PREG LOT # (test code = 3575) [id number] POCT PREG TEST DATE (test 09/07/2022 code = 3576) Lab Interpretation (test code = Normal 67872-3) [facility] 08:37:00 Test Item Value Reference Range Interpretation Comments GLUBED (test code = GLUBED) 260 mg/dL 60-125 H [id number] 06:42:00 Test Item Value Reference Range Interpretation Comments GLUBED (test code = GLUBED) 265 mg/dL 60-125 H COVID 19 Asymptomatic IH [id number] 17:24:00 Test Item Value Reference Range Interpretation Comments COVID 19 Asymptomatic IH AG (test NEGATIVE NEGATIVE code = COVNONPUIAG) COMPREHENSIVE METABOLIC [id number] 05:38:33 Test Item Value Reference Range Interpretation Comments GLUCOSE (test code = 411 MG/DL 70-99 H 2216) BUN (test code = 24 MG/DL 6-20 H 2207) CREATININE (test 1.13 MG/DL 0.60-1.30 code = 2214) eGFR (2020 CKD-EPI) 62 ML/MIN/1.73 >60 (test code = 99168) CALC BUN/CREAT (test 21 RATIO 6-28 code = 2235) SODIUM (test code = 136 MEQ/L 696-769 7899) POTASSIUM (test code 5.0 MEQ/L 3.5-5.4 = 2227) CHLORIDE (test code 97 MEQ/L 95-107 = 2214) CARBON DIOXIDE (test 20 MEQ/L 19-31 code = 2206) CALCIUM (test code = 10.3 MG/DL 8.5-10.5 2208) PROTEIN, TOTAL (test 8.3 G/DL 6.1-8.3 code = 222) ALBUMIN (test code = 4.8 G/DL 3.5-5.2 2200) CALC GLOBULIN (test 3.5 G/DL 1.9-3.7 code = 2240) CALC A/G RATIO (test 1.4 RATIO 1.0-2.6 code = 2234) BILIRUBIN, TOTAL 0.3 MG/DL See_Comment [Automated message] (test code = 2207) The syste m which generated this result transmit faith reference range : <=1.2. The refe rence range was not u sed to interpret th is result as normal/abnormal . ALKALINE PHOSPHATASE 61 U/L 40-113 (test code = 2204) AST (test code = 38 U/L 9-40 2217) ALT (test code = 49 U/L 5-40 H 2218) LIPID [id number] 05:38:33 Test Item Value Reference Range Interpretation [...] MOREINFORMATION , SEE CLIENT ANNOUNCE MENT AT [email or web address] CalcLDL-C RISK RATIO LDL/HDL 2.79 RATIO <3.22 (test code = 2238) UNABLE TO CALCULATE UNLESS OTHERW ISE INDICATED, ALL TESTING PERFORMED [facility] [employer] [employer] [address] [place] [address] 4 LABORATORY DI GUEVARA: George SONG [id number] CAP ACCREDITATION N O. [id number] HEMOGLOBIN [id number] 03:55:33 Test Item Value Reference Range Interpretation Comments HEMOGLOBIN A1c (test 11.9 % 4.2-5.6 H [facility] code = 89554) ASSOCIATION IDELINES FOR HGB A1C: PREDIABETES/INC REASED [...] TESTI NG OR LABORATORY CONS ULTATION. CREATINE [id number] 13:35:13 Test Item Value Reference Range Interpretation Comments CK (test code = 9322626303) 71 U/L 33-194 Lab Interpretation (test code = Normal 60425-6) [facility] GLUCOSE (AUTOMATED)2021-06-18 13:07:35 Test Item Value Reference Range Interpretation Comments POCT GLU (test code = 6981880530) 351 mg/dL 70-110 H Lab Interpretation (test code = Abnormal 90192-2) [facility] GLU[facility]SE(AGE >30DAYS)2021-06-18 13:04:00 Test Item Value Reference Range Interpretation Comments POCT Glu (age>30days) (test code = 351 mg/dL 70-110 A 3342) Lab Interpretation (test code = Abnormal 38478-5) [facility]. Metabolic Panel (83480)2021-06-18 11:14:20 Test Item Value Reference Range Interpretation Comments NA (test code = 134 mmol/L 135-145 L 8047195489) K (test code = 4.6 mmol/L 3.5-5.0 6910892618) CL (test code = 103 mmol/L 98-108 6320434686) CO2 TOTAL (test code = 18 mmol/L 23-31 L 9810947139) AGAP (test code = 2-16 8813319887) BUN (test code = 30 mg/dL 7-23 H 9502173475) GLUCOSE (test code = 390 mg/dL 70-110 H 3682775297) CREATININE (test code = 0.93 mg/dL 0.50-1.04 4171650394) TOTAL BILI (test code = 0.4 mg/dL 0.1-1.4 6739914619) CALCIUM (test code = 10.0 mg/dL 8.6-10.6 3900101105) T PROTEIN (test code = 7.6 g/dL 6.3-8.2 2107173622) ALBUMIN (test code = 4.5 g/dL 3.5-5.0 5811188125) ALK PHOS (test code = 51 U/L 34-122 9781648406) ALTv (test code = 34 U/L 5-35 1742-6) AST(SGOT) (test code = 26 U/L 13-40 0801323058) eGFR (test code = mL/min/1.73m2 2041616571) CALVIN (test code = CALVIN) Association of [...] tests). Lab Interpretation Abnormal (test code = 00397-6) [facility] [id number] 11:06:00 Test Item Value Reference Range Interpretation Comments POCT PREG (test code = 1605) neg On board controls acceptable with yes C Line (test code = 3574) POCT PREG LOT # (test code = 3575) [id number] POCT PREG TEST DATE (test 08/10/2022 code = 3576) Lab Interpretation (test code = Normal 50825-2) [facility] with [id number] 11:00:39 Test Item Value Reference Range Interpretation Comments WBC (test code = See_Comment [Automated 4016-2) message] The sy stem which generated this result transmitted reference range : 4.30 - 11.10 10*3/?L. The reference range was not used to interpret this result as normal/abnormal . RBC (test code = See_Comment [Automated 040-8) message] The sy stem which generated this [...] RDW-SD (test code = 40.1 fL 39.0-49.9 13420-5) RDW-CV (test code = 13.2 % 12.0-15.5 788-0) PLT (test code = See_Comment [Automated 777-3) message] The sy stem which generated this result transmitted reference range : 166 - 358 10*3/ ?L. The reference r doretha was not used to interpret this result as normal/abnormal . MPV (test code = 9.5 fL 9.5-12.9 04593-8) NRBC/100 WBC (test See_Comment [Automat ed code = 3727459956) message] The system which generated this result transmitted reference range : 0.0 - 10.0 /100 WBCs. The refer ence range was not u sed to interpret th is result as normal/abnormal . NRBC x10^3 (test code <0.01 See_Comment [Auto mated = 2325577783) message] The s ystem which generated this result transmitted reference range : 10*3/?L. The reference range was not used to interpret this result as normal/abnormal . GRAN MAT (NEUT) % 43.7 % (test code = 770-8) IMM GRAN % (test code 0.70 % = 6791539267) LYMPH % (test code = 41.9 % 736-9) MONO % (test code = 8.8 % 5905-5) EOS % (test code = 3.6 % 713-8) BASO % (test code = 1.3 % 706-2) GRAN MAT x10^3(ANC) 2.68 10*3/uL 1.88-7.09 (test code = 9802605184) IMM GRAN x10^3 (test 0.04 10*3/uL 0.00-0.06 code = 0425875752) LYMPH x10^3 (test code 2.57 10*3/uL 1.32-3.29 = 731-0) MONO x10^3 (test code 0.54 10*3/uL 0.33-0.92 = 742-7) EOS x10^3 (test code = 0.22 10*3/uL 0.03-0.39 711-2) BASO x10^3 (test code 0.08 10*3/uL 0.01-0.07 H = 704-7) Lab Interpretation Abnormal (test code = 89649-3) [facility]- CT UP EXTREM W/O CONT [id number] 08:37:00 [facility] : 1980 Sex: F Patient Name: MARGE FRANCO Unit No: [id number] EXAMS: CPT CODE: [id number] CT UP EXTREM W/O CONT [id number] CT SCAN LEFT WRIST WITH RECONSTRUCTION DIAGNOSIS: [...] with ACR practice standards and adherence to electric vehicle electrician's recommendations. INDICATION: LEFT WRIST SPRAIN, POSSIBLE SCAPHOID FRACTURE COMPARISON: None. COMMENT: Findings are as described above. at 0837 Reported and signed by: America Schuler MD CC: Bebeto Quiroga MD Technologist: KAVEH WYMAN MRI CTDI:DLP: Trnscrpt: 08/11/2020 (0837) NoelGVG [facility] NAME: MARGE FRANCO [address] [facility] PHYS: Bebeto Valiente MD : 1980 AGE: 40 SEX: F [place] [address] LOC: Y.RAD PHONE #: [phone] EXAM DATE: 08/08/2020 STATUS: DEP CLI FAX #: [phone] RAD #: D/C DT PAGE 1 Signed Report Patient Name: MARGE FRANCO Unit No: [id number] EXAMS: CPT CODE: [id number] CT UP EXTREM W/[place] [address] <Continued> Orig Print D/T: S: 08/11/2020 (0840) [facility] NAME: MARGE FRANCO [address] [place] [address] PHYS: Bebeto Valiente MD : 1980 AGE: 40 SEX: F [place], [place] [address]IBRW NO: [id number] LOC: Y.RAD PHONE #: [phone] EXAM DATE: 08/08/2020 STATUS: DEP CLI FAX #: [phone] RAD #: D/C DT PAGE 2 Signed Report- XR FOREARM 2 VIEWS [id number] 09:10:00 [facility] : 1980 Sex: F Patient Name: MARGE FRANCO Unit No: [id number] EXAMS: CPT CODE: [id number] XR [place] [address] [place] [address] Left forearm and wrist 4 views COMMENT: There isno evidence for fracture or subluxation. No focal bony lesions are seen. at 0910 Reported and signed by: Prasad Marina MD CC: Rafy Ferguson MD Technologist: Marie Johnson(R) Transcribed D/ (0910) Renee [facility] NAME: MARGE FRANCO [address] [place] [address] PHYS: HAMST. - Rafy Ferguson [place] : 1980 AGE: 40 SEX: F [place] [address] LOC: TEOFILO PHONE #: [phone] EXAM DATE: 08/02/2020 STATUS: DEP ER FAX #: [phone] RAD #: D/C DT PAGE 1 Signed Report Patient Name: MARGE FRANCO Unit No: [id number] EXAMS: CPT CODE: [id number] XR FORE[place] [address] [place] [address] <Continued> Orig Print D/T: S: 08/04/2020 (0914) [facility] [address] [place] [address] PHYS: HAMST.Rell - SanjeevMarcel brownen [place] : 1980 AGE: 40 SEX: F [place] [address] LOC: TEOFILO PHONE #: [phone] EXAM DATE: 08/02/2020 STATUS: DEP ER FAX #: [phone] RAD #: D/C DT PAGE 2 Signed Report- XR ANKLE 3 + V [id number] 07:19:00 Patient Name: Marge Franco Unit No: [id number] EXAMS: CPT CODE: [id number] XR ANKLE 3 + V [place] [address] Right ankle 3 views COMMENT: There is [...] SAMANTHA MORALES, RT(R) Transcribed D/ (718) MickeyL [facility] NAME: Marge Franco [address] [place] [address] PHYS: Barry Cardenas DO : 1980 AGE: 40 SEX: F [place] [address] LOC: TEOFILO PHONE #: [phone] EXAM DATE: 02/13/2020 STATUS: DEP ER FAX #: [phone] RAD #: D/C DT PAGE 1 Signed Report Patient Name: Marge Franco Unit No: [id number] EXAMS: CPT CODE: [id number] XR ANKLE 3 + V RT 44421 <Continued> Orig Print D/T: S: 02/14/2020 (07) [facility] NAME: Marge Franco [address] [place] [address] PHYS: Barry Cardenas DO :1980 AGE: 40 SEX: F [place] [address] LOC: TEOFILO PHONE #: [phone] EXAM DATE: 02/13/2020 STATUS: DEP ER FAX #: [phone] RAD #: D/C DT PAGE 2 Signed Report- XR FOOT 2 VIEWS [id number] 07:19:00 Patient Name: Marge Franco Unit No: [id number] EXAMS: CPT CODE: [id number] XR FO[place] [address] [place] [address] Right ankle 3 views COMMENT: There is [...] Technologist: SAMANTHA MORALES, RT(R) Transcribed D/ (718) tCOLTONL [facility] NAME: Marge Franco [address] [place] [address] PHYS: Barry Cardenas DO : 1980 AGE: 40 SEX: F [place] [address] LOC: TEOFILO PHONE #: [phone] EXAM DATE: 02/13/2020 STATUS: DEP ER FAX #: [phone] RAD #: D/C DT PAGE 1 Signed Report Patient Name: Marge Franco Unit No: [id number] EXAMS: CPT CODE: [id number] XR FO[place] [address] [place] [address] <Continued> Orig Print D/T: S: 02/14/2020 (07) [facility] NAME: Marge Franco [address] [place] [address] PHYS: Barry Cardenas DO :1980 AGE: 40 SEX: F [place] [address] LOC: TEOFILO PHONE #: [phone] EXAM DATE: 02/13/2020 STATUS: DEP ER FAX #: [phone] RAD #: D/C DT PAGE 2 Signed [id number] 11:17:00 Test Item Value Reference Range Interpretation Comments GLUBED (test code = GLUBED) 119 mg/dL 60-125 N [id number] 08:15:00 Test Item Value Reference Range Interpretation Comments GLUBED (test code = GLUBED) 117 mg/dL 60-125 N Novel Coronavirus 2019 [id number] 17:12:00 Test Item Value Reference Range Interpretation Comments Novel Coronavirus 2019 Inhouse (test Negative Negative code = COVNONPUI) Novel Coronavirus 2019 Vcntsnl5631-08-04 17:12:00 Test Item Value Reference Range Interpretation Comments Novel Coronavirus 2019 Inhouse (test Negative Negative code = COVNONPUI) CBC W/AUTO [id number] 20:19:00 Test Item Value Reference Range Interpretation [...] 0-0 N code = NRBC) BASIC METABOLIC [id number] 19:54:00 Test Item Value Reference Range Interpretation [...] RATE (test code = GFR) mL/mi n/1.73 y3Cphcmyhoc Range:Healthy A dults >90 mL/min/1.73 m2 For [...] CA) - CT LOWER EXTRM W/O C [id number] 14:57:00 Patient Name: MARGE FRANCO Unit No: [id number] EXAMS: CPT CODE: [id number] [place] LOWER EXTRM W/[place] [address] CT SCAN RIGHT ANKLE WITH RECONSTRUCTION DIAGNOSIS: [...] with ACR practice standards and adherence to electric vehicle electrician's recommendations. INDICATION: RIGHT ANKLE PAIN COMPARISON: None. COMMENT: Findings are as described above. at 1457 Reported and signed by: America Schuler MD CC: Elbert Wilson MD Technologist: Shaan Nassar,RT(R) CTDI: DLP: Trnscrpt: 01/04/2020 (4000) tSCARGVG [facility] NAME: MARGE FRANCO [address] [place] [address] PHYS: Elbert Rodrigues MD : 1980 AGE: 39 SEX: F [place] [address] LOC: Y.RAD PHONE #: [phone] EXAM DATE: 01/04/2020 STATUS: REG CLI FAX #: [phone] RAD #: D/C DT PAGE 1 Signed Report Patient Name: MARGE FRANCO Unit No: [id number] EXAMS: CPT CODE: [id number] CT LOWER EXTRM W/[place] [address] <Continued> Orig Print D/T: S: 01/04/2020 (1500) [facility] NAME: JOANN FRANCOTINLAURA [address] [place] [address] PHYS: Elbert Rodrigues MD : 1980 AGE: 39 SEX: F [place] [address] LOC: Y.RAD PHONE #: [phone] EXAM DATE: 01/04/2020 STATUS: REG CLI FAX #: [phone] RAD #: D/C DT PAGE 2 Signed Report"
[2021-12-07] MEDS ORDERED: ONDANSETRON 4 MG/2 ML VIAL ONE ×2 (05:39→09:16)
[2021-12-07] MEDS ORDERED: NA CHLORIDE 0.9% 1,000 ML ONE ×3 (05:40→09:16)
[2021-12-07 05:59] LABS: Absolute Lymphocytes (CBC) 3.4 K/uL (0.7-4.9); Lymphocytes % 43.5 % (15.3-44.8); MPV 7.4 fL (7.6-11.3); RBC Red Blood Cell Count 5.29 M/uL (3.86-4.86)
--- NOTE | 2021-12-07 06:14 | EDPHYS ---
Physician Documentation [facility] Name: Valentina Franco Age: 41 yrs Sex: Female : 1980 Arrival Date: 12/07/2021 Time: 05:20 Bed 5 Private MD: ED Physician Tiburcio Linder HPI: 12/07 05:31 This 41 yrs old Female presents to ER via Unassigned with complaints of rn Abdominal Pain. 05:31 The patient presents with abdominal pain in the epigastric area. Onset: The rn symptoms/episode began/occurred 2 day(s) ago. The symptoms radiate to back. Associated signs and symptoms: Pertinent positives: nausea and vomiting, Pertinent negatives: blood in stools, chest pain, fever. The symptoms are described as crampy, intermittent, sharp. Modifying factors: The symptoms are alleviated by nothing, the symptoms are aggravated by food, touching the area. Severity of pain: At its worst the pain was moderate in the emergency department the pain is unchanged. The patient has experienced similar episodes in the past. The patient has not recently seen a physician. Pt reports called by pcp this past week, told triglycerides 1200, and to come to ER for pancreatitis. She has had pancreatitis a couple of times before, always related to TG, compliant with her medication. Reports 2 days of not tolerating PO. No hematemesis or blood in stool. Gallbladder has been removed. . [employer] T[employer]: 05:35 LMP N/A - Irregular menses lp1 Historical: - Allergies: 05:32 No Known Allergies; lp1 - Home Meds: 05:32 glipizide 10 mg Oral tab 1 tab 2 times per day [Active]; lisinopril 10 mg Oral tab 1 lp1 tab once daily [Active]; metformin 1,000 mg Oral cp24 1 tab twice a day for Type 2 Diabetes Mellitus [Active]; Tresiba FlexTouch U-100 100 unit/mL (3 mL) subcutaneous inpn [Active]; Victoza 2-Christofer 0.6 mg/0.1 mL (18 mg/3 mL) subcutaneous pnij [Active]; atorvastatin 80 mg oral tab 1 tab once daily [Active]; fenofibrate micronized 134 mg oral cap once daily [Active]; - PMHx: 05:32 Anxiety; Depression; Diabetes - NIDDM; High Cholesterol; Pancreatitis; UTI; lp1 - PSHx: 05:32 Cholecystectomy; section; foot surgery; lp1 - Immunization history:: Adult Immunizations up to date. - Social history:: Smoking status: Patient denies any tobacco usage or history of. - Family history:: not pertinent. - Hospitalizations: : No recent hospitalization is reported. ROS: 05:31 Constitutional: Negative for fever, chills, and weight loss, Eyes: Negative for injury, rn pain, redness, and discharge, Neck: Negative for injury, pain, and swelling, Cardiovascular: Negative for chest pain, and edema Respiratory: Negative for shortness of breath, cough, wheezing, and pleuritic chest pain, Abdomen/GI: + epigastric abd pain, + nausea/vomiting MS/Extremity: Negative for injury and deformity, Skin: Negative for injury, rash, and discoloration, Neuro: Negative for headache, numbness, tingling, and seizure. Exam: 05:31 Constitutional: This is a well developed, well nourished patient who is awake, alert, rn appears uncomfortable, ambulatory to room without assistance. Head/Face: Normocephalic, atraumatic. Cardiovascular: tachycardic, regular Respiratory: No increased work of breathing, no retractions or nasal flaring. Abdomen/GI: soft, + epigastric tenderness, no masses, non-distended Skin: Warm, dry MS/ Extremity: Pulses equal, no cyanosis. Neuro: Awake and alert, GCS 15 Vital Signs: 05:30 Weight 107.95 kg; Height 5 ft. 4 in. (162.56 cm); Pain 10/10; lp1 05:41 BP 117 / 84; Pulse 114; Resp 17; Temp 98.7(O); Pulse Ox 96% on R/A; lg3 07:40 BP 114 / 88; Pulse 95; Resp 15; Pulse Ox 100% ; jl7 09:00 BP 103 / 86; Pulse 96; Resp 15; Pulse Ox 96% ; jl7 10:30 BP 115 / 73; Pulse 98; Resp 15; Pulse Ox 97% ; jl7 13:00 BP 99 / 73; Pulse 97; Resp 15; Pulse Ox 95% ; jl7 05:30 Body Mass Index 40.85 (107.95 kg, 162.56 cm) lp1 MDM: 05:21 Patient medically screened. rn 06:12 Differential diagnosis: gastritis, non-specific abd pain, pancreatitis, Peptic Ulcer rn Disease. Data reviewed: vital signs, nurses notes, lab test result(s), and as a result, I will admit patient. Counseling: I had a detailed discussion with the patient and/or guardian regarding: the historical points, exam findings, and any diagnostic results supporting the discharge/admit diagnosis, lab results, the need for further work-up and treatment in the hospital. Response to treatment: the patient's symptoms have mildly improved after treatment, and as a result, I will admit patient. Admission orders: after a detailed discussion of the patient's condition and case, the admit orders are written by me. 12/07 05:23 Order name: CBC with Diff; Complete Time: 06:12 rn 12/07 05:23 Order name: CMP; Complete Time: 06:47 rn 12/07 05:23 Order name: Lipase; Complete Time: 06:47 12/07 05:29 Order name: SARS-COV-2 RT PCR (Document "Date of Onset" if Symptomatic) 12/07 05:49 Order name: Lipid Profile; Complete Time: 06:47 EDOH 12/07 06:38 Order name: LDL, Direct; Complete Time: 06:47 EDOH 12/07 07:03 Order name: Lactate EDOH 12/07 07:04 Order name: Hemoglobin A1c EDOH 12/07 07:53 Order name: CBC with Automated Diff EDOH 12/07 07:53 Order name: CBC with Automated Diff EDOH 12/07 07:53 Order name: Comprehensive Metabolic Panel EDOH 12/07 07:53 Order name: Comprehensive Metabolic Panel EDOH 12/07 07:53 Order name: Magnesium EDOH 12/07 07:03 Order name: Abdomen EDMS 12/07 07:53 Order name: Clear Liquid EDMS 12/07 07:53 Order name: Magnesium EDMS 12/07 08:01 Order name: Lipid Profile EDOH 12/07 08:01 Order name: Lipid Profile EDOH 12/07 08:01 Order name: Lipid Profile EDOH 12/07 09:25 Order name: Urine Dipstick-Ancillary EDMS 12/07 09:43 Order name: Glucose, Ancillary Testing EDOH 12/07 10:37 Order name: Glucose, Ancillary Testing EDOH 12/07 11:41 Order name: Glucose, Ancillary Testing [facility] 12/07 12:32 Order name: Glucose, Ancillary Testing [facility] 12/07 13:28 Order name: Glucose, Ancillary Testing [facility] 12/07 05:23 Order name: IV Saline Lock; Complete Time: 05:38 rn 12/07 05:23 Order name: Labs collected and sent; Complete Time: 05:38 rn 12/07 05:23 Order name: Urine Dipstick-Ancillary (obtain specimen); Complete Time: 09:19 rn 12/07 05:23 Order name: Urine Test (obtain specimen); Complete Time: 09:19 rn Administered Medications: 05:44 Drug: Zofran (Ondansetron) 4 mg Route: IVP; Site: right antecubital; lg3 05:44 Follow up: Response: No adverse reaction lg3 05:44 Drug: NS 0.9% 1000 ml Route: IV; Rate: 1000 ml; Site: right antecubital; lg3 07:01 Follow up: Response: No adverse reaction; IV Status: Completed infusion; IV Intake: lg3 1000ml 07:00 Drug: Phenergan (promethazine) 12.5 mg Route: IVP; Site: right antecubital; lg3 07:01 Follow up: Response: No adverse reaction lg3 07:01 Drug: morphine 4 mg Route: IVP; Infused Over: 4 mins; Site: right antecubital; lg3 07:01 Follow up: Response: No adverse reaction lg3 Disposition Summary: 12/07/21 06:13 Hospitalization Ordered Hospitalization Status: Inpatient Admission rn Provider: Ivan Linder rn Condition: Stable rn Problem: an acute exacerbation rn Symptoms: have improved rn Bed/Room Type: Standard rn Location: Intensive Care Unit(12/07/21 10:30) sp Room Assignment: 2-(12/07/21 10:30) sp Diagnosis - Acute pancreatitis without necrosis or infection, unspecified rn Forms: - Medication Reconciliation Form rn - SBAR form rn Signatures: Dispatcher [employer] [facility] Estrella Cho Roman, MD MD rn Pena, Laura, RN RN lp1 Teodora Almanza, RN RN lg3 Corrections: (The following items were deleted from the chart) 05:48 05:30 LIPID PROFILE+C.LAB.BRZ [facility]. [facility] Telemetry/MedSurg (Inpatient) rn sp 06:13 monie sp
--- NOTE | 2021-12-07 06:14 | ER ---
Nurse's Notes [facility] Name: Valentina Franco Age: 41 yrs Sex: Female : 1980 Arrival Date: 12/07/2021 Time: 05:20 Bed 5 Private MD: Diagnosis: Acute pancreatitis without necrosis or infection, unspecified Presentation: 12/07 05:30 Chief complaint: Patient states: "I think it's my pancreas again"; Reports upper lp1 abdominal pain x 2 days, unable to tolerate food or fluids; States called by clinic and told her Triglyceride level was 1180. Coronavirus screen: At this time, the client does not indicate any symptoms associated with coronavirus-19. Ebola Screen: No symptoms or risks identified at this time. Risk Assessment: Do you want to hurt yourself or someone else? Patient reports no desire to harm self or others. Onset of symptoms was December 07, 2021. 05:30 Method Of Arrival: Ambulatory lp1 05:30 Acuity: CYNTHIA 3 lp1 05:47 Initial Sepsis Screen: Does the patient meet any 2 criteria? No. Patient's initial lg3 sepsis screen is negative. Does the patient have a suspected source of infection? No. Patient's initial sepsis screen is negative. 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 LMP N/A - Irregular menses lp1 Historical: - Allergies: 05:32 No Known Allergies; lp1 - Home Meds: 05:32 glipizide 10 mg Oral tab 1 tab 2 times per day [Active]; lisinopril 10 mg Oral tab 1 lp1 tab once daily [Active]; metformin 1,000 mg Oral cp24 1 tab twice a day for Type 2 Diabetes Mellitus [Active]; Tresiba FlexTouch U-100 100 unit/mL (3 mL) subcutaneous inpn [Active]; Victoza 2-Christofer 0.6 mg/0.1 mL (18 mg/3 mL) subcutaneous pnij [Active]; atorvastatin 80 mg oral tab 1 tab once daily [Active]; fenofibrate micronized 134 mg oral cap once daily [Active]; - PMHx: 05:32 Anxiety; Depression; Diabetes - NIDDM; High Cholesterol; Pancreatitis; UTI; lp1 - PSHx: 05:32 Cholecystectomy; section; foot surgery; lp1 - Immunization history:: Adult Immunizations up to date. - Social history:: Smoking status: Patient denies any tobacco usage or history of. - Family history:: not pertinent. - Hospitalizations: : No recent hospitalization is reported. Screenin:45 Abuse screen: Denies threats or abuse. Denies injuries from another. Nutritional lg3 screening: No deficits noted. Tuberculosis screening: No symptoms or risk factors identified. Fall Risk None identified. Assessment: 05:45 General: Appears in no apparent distress. uncomfortable, Behavior is calm, cooperative. lg3 Pain: Complains of pain in abdomen. Neuro: No deficits noted. [place] Agitation-Sedation Scale (RASS): 0 - Alert and Calm Level of Consciousness is awake, alert, obeys commands, Oriented to person, place, time, situation. Cardiovascular: No deficits noted. Denies chest pain, shortness of breath, Capillary refill < 3 seconds Clubbing of nail beds is absent JVD is absent Patient's skin is warm and dry. Respiratory: No deficits noted. Airway is patent Trachea midline Respiratory effort is even, unlabored, Respiratory pattern is regular, symmetrical. GI: Bowel sounds present X 4 quads. Abd is soft X 4 quads Abdomen is tender to palpation in right upper quadrant and left upper quadrant Reports upper abdominal pain, intolerance of fluids, intolerance of food, nausea, vomiting. : No deficits noted. No signs and/or symptoms were reported regarding the genitourinary system. EENT: No deficits noted. No signs and/or symptoms were reported regarding the EENT system. Derm: No deficits noted. No signs and/or symptoms reported regarding the dermatologic system. Skin is intact, is healthy with good turgor, Skin is pink, warm \\T\\ dry. Musculoskeletal: No deficits noted. No signs and/or symptoms reported regarding the musculoskeletal system. Circulation, motion, and sensation intact. Range of motion: intact in all extremities. 07:30 Reassessment: Hospitalist Dr. Linder at bedside assessing pt and discussing POC. Pt jl7 reports unable to provide urine sample at this time. 10:15 Reassessment: Attempted to call report, nurse unavailable. jl7 12:30 Reassessment: Dr Linder notified of continued nausea, pt reports zoan doesn't work jl7 well for her, see Stupil for orders. Vital Signs: 05:30 Weight 107.95 kg; Height 5 ft. 4 in. (162.56 cm); Pain 10/10; lp1 05:41 BP 117 / 84; Pulse 114; Resp 17; Temp 98.7(O); Pulse Ox 96% on R/A; lg3 07:40 BP 114 / 88; Pulse 95; Resp 15; Pulse Ox 100% ; jl7 09:00 BP 103 / 86; Pulse 96; Resp 15; Pulse Ox 96% ; jl7 10:30 BP 115 / 73; Pulse 98; Resp 15; Pulse Ox 97% ; jl7 13:00 BP 99 / 73; Pulse 97; Resp 15; Pulse Ox 95% ; jl7 05:30 Body Mass Index 40.85 (107.95 kg, 162.56 cm) lp1 ED Course: 05:20 Patient arrived in ED. bp1 05:21 Tiburcio Linder MD is Attending Physician. rn 05:30 Teodora Almanza, PETE is Primary Nurse. lg3 05:32 Triage completed. lp1 05:38 Inserted saline lock: 22 gauge in right antecubital area, using aseptic technique. ds4 Blood collected. 05:44 SARS-COV-2 RT PCR (Document "Date of Onset" if Symptomatic) Sent. lg3 05:44 CBC with Diff Sent. lg3 05:44 CMP Sent. lg3 05:44 Lipase Sent. lg3 05:45 Patient has correct armband on for positive identification. Bed in low position. Call lg3 light in reach. Side rails up X 1. Client placed on continuous cardiac and pulse oximetry monitoring. NIBP monitoring applied. Door closed. Noise minimized. Warm blanket given. 05:47 Arm band placed on right wrist. lg3 05:49 Lipid Profile Sent. lg3 06:13 Ivan Linder MD is Hospitalizing Provider. rn 07:21 Abdomen In Process Unspecified. EDMS 07:41 Primary Nurse role handed off by Teodora Almanza, PETE jl7 07:43 Tom Mckeon, PETE is Primary Nurse. jl7 09:30 Inserted saline lock: 20 gauge in left forearm, using aseptic technique. jl7 09:46 No provider procedures requiring assistance completed. Patient admitted, IV remains in jl7 place. intact, No redness/swelling at site. Administered Medications: 05:44 Drug: Zofran (Ondansetron) 4 mg Route: IVP; Site: right antecubital; lg3 05:44 Follow up: Response: No adverse reaction lg3 05:44 Drug: NS 0.9% 1000 ml Route: IV; Rate: 1000 ml; Site: right antecubital; lg3 07:01 Follow up: Response: No adverse reaction; IV Status: Completed infusion; IV Intake: lg3 1000ml 07:00 Drug: Phenergan (promethazine) 12.5 mg Route: IVP; Site: right antecubital; lg3 07:01 Follow up: Response: No adverse reaction lg3 07:01 Drug: morphine 4 mg Route: IVP; Infused Over: 4 mins; Site: right antecubital; lg3 07:01 Follow up: Response: No adverse reaction lg3 Medication: 05:35 VIS not applicable for this client. lp1 Intake: 07:01 IV: 1000ml; Total: 1000ml. lg3 Outcome: 06:13 Decision to Hospitalize by Provider. rn 14:13 Admitted to ICU accompanied by nurse, via wheelchair, room 2, with chart, Report called sravanthi to Kelsy 14:13 Condition: stable 14:13 Discharge instructions given to patient, Instructed on the need for admit, Demonstrated understanding of instructions. 14:18 Patient left the ED. jl7 Signatures: Dispatcher [employer] EDMS Tiburcio Linder MD MD rn Pena, Laura RN RN lp1 Néstor Woodard ds4 Tom Mckeon RN RN jl7 Teodora Almanza RN RN lg3 Ml Wang Corrections: (The following items were deleted from the chart) 05:48 05:44 LIPID PROFILE+C.LAB.BRZ drawn and sent. lg3 EDAL
[2021-12-07 06:22] LABS: ALT/SGPT 41 U/L (12-78); AST/SGOT 16 U/L (15-37); Albumin 4.3 g/dL (3.4-5.0); Alkaline Phosphatase 51 U/L (45-117); BUN Blood Urea Nitrogen 21 mg/dL (7-18); Bicarbonate 22 mmol/L (21-32); Bilirubin Total 0.4 mg/dL (0.2-1.0); Glomerular Filtration Rate 59 ml/min (=/>90); Glucose Level 275 mg/dL (74-106); HDL Cholesterol 28 mg/dL (40-60); Lipase 201 U/L (73-393); Potassium 3.8 mmol/L (3.5-5.1); Protein, Total 8.8 g/dL (6.4-8.2); Sodium Level 135 mmol/L (136-145)
[2021-12-07 06:44] LABS: LDL, Direct 69 mg/dL (100-129)
[2021-12-07] MEDS ORDERED: PROMETHAZINE INJ 25 MG/ML AMP ONE ×2 (07:01→13:46)
[2021-12-07] MEDS ORDERED: MORPHINE 4 MG/ML SYR ONE ×2 (07:01→09:16)
--- NOTE | 2021-12-07 07:32 | RAD REPORT ---
EXAM DESCRIPTION: CTAbdomen Pelvis W Contrast - 12/07/2021 7:20 am CLINICAL HISTORY: epigastric pain, h/o pancreatitis COMPARISON: <Comparisons> TECHNIQUE: CT of the abdomen and pelvis was performed. All CT scans are performed using dose optimization technique as appropriate and may include automated exposure control or mA/KV adjustment according to patient size. FINDINGS: Lower chest: Mild circumferential thickened distal esophagus. Liver: Hepatic steatosis. Biliary: Cholecystectomy. Stomach: No significant focal abnormality. Duodenum: No significant focal abnormality. Pancreas: No significant abnormality. Spleen: No significant abnormality. Adrenal: No suspicious lesions. Kidney/ureter: No hydronephrosis. 3 mm stone in the right kidney. Retroperitoneum: No retroperitoneal adenopathy. Vascular: No aneurysm. Bowel: Normal appendix. Air-fluid levels in the ascending colon consistent with liquid stool contents . No bowel obstruction. A few scattered colonic diverticula. No evidence of acute diverticulitis. . Peritoneum: No ascites or free air. Bladder: Bladder stimulator. Reproductive: No adnexal masses. Bones: No acute fracture. Other: n/a IMPRESSION: No acute intra-abdominal or pelvic finding. Nonobstructive right nephrolithiasis. Normal appendix.
[2021-12-07] MEDS ORDERED: SODIUM CHLORIDE 0.9% 10ML INJ IV PRN (07:45)
[2021-12-07] MEDS ORDERED: GLUCAGON 1 MG/VIAL IM PRN (07:51)
[2021-12-07] MEDS: NA CHLORIDE 0.9% 1,000 ML IV SCH ×3 (08:00→22:34)
[2021-12-07] MEDS ORDERED: D10W 250 ML BAG IV PRN (08:23)
[2021-12-07] MEDS ORDERED: ENOXAPARIN 40 MG/0.4 ML SQ ONE ×2 (08:45→09:16)
[2021-12-07] MEDS ORDERED: ASPIRIN EC 81 MG TAB PO ONE (08:45)
[2021-12-07] MEDS ORDERED: METHYLPREDNISOLONE 40 MG INJ ONE (08:45)
--- NOTE | 2021-12-07 08:57 | P.HP ---
Certification for Inpatient Patient admitted to: Inpatient With expected LOS: >2 Midnights Practitioner: I am a practitioner with admitting privileges, knowledge of patient current condition, hospital course, and medical plan of care. Services: Services provided to patient in accordance with Admission requirements found in Title 42 Section 412.3 of the Code of Federal Regulations Patient History Date of Service: 12/07/21 Reason for admission: abdominal pain; pancreatitis History of Present Illness: 41yo F, PMH: pancreatitis, hypertriglyceridemia, insulin-dependent DM 2, prior episodes of pancreatitis Presents to the ED with several days of abdominal pain. Pain located in the epigastric region, associated with nausea and vomiting. Patient has been unable to keep any p.o. down to the last 2-3 days. Denies fever or chills, associated with 2 days of loose stool, and increased gas. Denies anything out of the ordinary last week, no change in medications. In the ED, patient was noted to have hypertriglyceridemia, with significant tenderness in the epigastric region. Patient is admitted for further treatment for acute pancreatitis Allergies No Known Allergies Allergy (Verified 09/16/17 03:51) Home Medications: Metformin HCl 1,000 mg PO BID 09/16/17 Fenofibrate [Tricor*] 145 mg PO DAILY #30 tab 09/19/17 Dapagliflozin Propanediol [Farxiga] 10 mg PO DAILY 11/10/17 Trazodone HCl 100 mg PO BEDTIME PRN PRN 11/11/17 - Past Medical/Surgical History Diabetic: Yes -: DIABETIC TYPE II -: CHOLESTEROL -: DEPRESSION -: hernia repair -: heart ablation -: broke foot -: tonsillectomy -: KATTY -: X3 - Family History Mother -: Diabetes - Social History Smoking Status: Never smoker Alcohol use: No CD- Drugs: No Caffeine use: Yes Place of Residence: Home Review of Systems 10-point ROS is otherwise unremarkable Physical Examination - Physical Exam General: Alert, Oriented x3, Mild distress HEENT: Sclerae nonicteric Neck: Supple, No LAD Respiratory: Clear to auscultation bilaterally, Normal air movement Cardiovascular: No edema, Regular rate/rhythm Gastrointestinal: Other (Soft, nondistended, moderate tenderness in the epigastrium) Musculoskeletal: No contractures Integumentary: No rashes, No significant lesion Neurological: Normal speech, Normal strength at 5/5 x4 extr, Normal affect - Studies Laboratory Data (last 24 hrs) 12/07/21 05:32: Sodium 135 L, Potassium 3.8, BUN 21 H, Creatinine 1.17, Glucose 275 H, Total Bilirubin 0.4, AST 16, ALT 41, Alkaline Phosphatase 51, Triglycerides 778 H, Cholesterol 173, LDL Cholesterol Direct 69 L, HDL Cholesterol 28 L, Cholesterol/HDL Ratio 6.18, Lipase 201 12/07/21 05:32: WBC 7.9, Hgb 14.3, Hct 43.0, Plt Count 303 12/07/21 05:29: Triglycerides Cancelled, Cholesterol Cancelled, HDL Cholesterol Cancelled, Cholesterol/HDL Ratio Cancelled Assessment and Plan - Advance Directives Does patient have a Living Will: No Does patient have a Durable POA for Healthcare: No Physician Review Additional Text: Problem List Acute pancreatitis Hypertriglyceridemia IDDM2 with hyperglycemia admit to ICU for insulin drip / q1h glc checks strict i/o's h/o pancreatitis and hyperTG states last A1c: 12, on multiple medications start insulin drip until TG < 500 clinically has acute pancreatitis obtain CT abd/pelvis to further evaluate not septic IVF, CLD if tolerated antiemetics, pain meds PRN VTE: lovenox Code: full Dispo: home, ~2 days Time Spent Managing Pts Care (In Minutes): 65
[2021-12-07] MEDS: PANTOPRAZOLE 40 MG INJ IVP SCH ×2 (09:00→20:19)
[2021-12-07] MEDS: ENOXAPARIN 40 MG/0.4 ML SQ SCH (09:00)
[2021-12-07] MEDS ORDERED: PANTOPRAZOLE 40 MG INJ ONE (09:16)
[2021-12-07 09:25] LABS: Urine Blood 3+ (Negative); Urine Glucose 2+ (Negative); Urine Protein Trace (Negative); Urine Specific Gravity <=1.005 (1.005-1.030)
[2021-12-07] MEDS: MORPHINE 4 MG/ML SYR IV PRN ×3 (09:38→20:20)
[2021-12-07] MEDS: INSULIN -REGULAR HUMAN 100 UNIT in NA CHLORIDE 0.9% 100 ML IV SCH ×3 (09:40→16:26)
[2021-12-07] MEDS: ONDANSETRON 4 MG/2 ML VIAL IV PRN ×2 (09:40→20:20)
[2021-12-07] MEDS ORDERED: PROMETHAZINE INJ 25 MG/ML AMP IV PRN (12:34)
[2021-12-07 18:25] LABS: HDL Cholesterol 22 mg/dL (40-60)
[2021-12-07 18:36] LABS: LDL, Direct 65 mg/dL (100-129)
[2021-12-07] MEDS: ACETAMINOPHEN 325 MG TABLET PO PRN (18:45)
[2021-12-08] MEDS: MORPHINE 4 MG/ML SYR IV PRN ×2 (02:05→06:23)
[2021-12-08] MEDS: ONDANSETRON 4 MG/2 ML VIAL IV PRN (02:05)
[2021-12-08] MEDS: NA CHLORIDE 0.9% 1,000 ML IV SCH (04:58)
[2021-12-08 05:21] VITALS: BMI 40.8
[2021-12-08 05:28] LABS: Absolute Lymphocytes (CBC) 2.6 K/uL (0.7-4.9); Hematocrit 33.5 % (36.0-45.0); Lymphocytes % 43.9 % (15.3-44.8); MPV 7.2 fL (7.6-11.3); RBC Red Blood Cell Count 4.11 M/uL (3.86-4.86)
[2021-12-08 05:54] LABS: ALT/SGPT 43 U/L (12-78); AST/SGOT 28 U/L (15-37); Albumin 3.3 g/dL (3.4-5.0); Alkaline Phosphatase 37 U/L (45-117); BUN Blood Urea Nitrogen 14 mg/dL (7-18); Bicarbonate 22 mmol/L (21-32); Bilirubin Total 0.4 mg/dL (0.2-1.0); Glomerular Filtration Rate 97 ml/min (=/>90); Glucose Level 98 mg/dL (74-106); HDL Cholesterol 23 mg/dL (40-60); Magnesium 1.5 mg/dL (1.8-2.4); Potassium 3.4 mmol/L (3.5-5.1); Protein, Total 6.8 g/dL (6.4-8.2); Sodium Level 139 mmol/L (136-145)
[2021-12-08 06:06] LABS: LDL, Direct 56 mg/dL (100-129)
[2021-12-08] MEDS ORDERED: POTASSIUM CL SA 10 MEQ TAB PO ONE ×2 (06:13→06:26)
[2021-12-08] MEDS ORDERED: Magnesium Sulfate 2gm IVPB 2 G/50 ML BAG IV ONE ×2 (06:13→06:27)
[2021-12-08] MEDS: D5 0.45 NS 1,000 ML IV SCH ×3 (08:04→20:56)
[2021-12-08] MEDS: PANTOPRAZOLE 40 MG INJ IVP SCH ×2 (08:06→20:57)
[2021-12-08] MEDS: ENOXAPARIN 40 MG/0.4 ML SQ SCH (08:06)
[2021-12-08] MEDS: ACETAMINOPHEN 325 MG TABLET PO PRN ×2 (08:23→20:57)
[2021-12-08] MEDS: INSULIN -REGULAR HUMAN 100 UNIT in NA CHLORIDE 0.9% 100 ML IV SCH ×2 (09:24→19:30)
--- NOTE | 2021-12-08 15:33 | P.PN ---
Subjective Date of Service: 12/08/21 Chief Complaint: abdominal pain; pancreatitis Patient states her abdominal pain is better. Triglyceride level trended down. No vomiting. She has nausea. Physical Examination - Vital Signs Temperature: 97.1 F Blood Pressure: 100/72 Pulse: 71 Respirations: 16 Pulse Ox (%): 94 - Physical Exam General: Alert, In no apparent distress, Oriented x3, Obese HEENT: Mucous membr. moist/pink Neck: JVD not distended Respiratory: Clear to auscultation bilaterally, Normal air movement Cardiovascular: No edema, Regular rate/rhythm, Normal S1 S2 Gastrointestinal: Normal bowel sounds, Soft and benign, Non-distended, Tenderness (Mild tenderness-epigastrium.) Musculoskeletal: No swelling, No tenderness Integumentary: No rashes, No erythema Neurological: Normal speech, Normal strength at 5/5 x4 extr Assessment And Plan - Plan Problem List Acute pancreatitis Hypertriglyceridemia IDDM2 with hyperglycemia Continue insulin drip and monitor triglyceride levels. Target triglyceride level of less than 500. Glucose checks every hour strict i/o's On multiple medications. Normal lipase level, CT abdomen and pelvis: No radiographic evidence of acute pancreatitis but clinically appear to have acute pancreatitis not septic Continue IV fluid. Sips and chips. Continue supportive measures-antiemetics, pain meds PRN.
[2021-12-08 16:16] LABS: Magnesium 1.9 mg/dL (1.8-2.4)
[2021-12-08] MEDS ORDERED: ATORVASTATIN 80 MG TAB PO SCH (21:00)
[2021-12-09] MEDS ORDERED: INSULIN -REGULAR HUMAN 50 UNIT/0.5 ML ML ONE (00:19)
[2021-12-09] MEDS ORDERED: NA CHLORIDE 0.9% 100 ML IV ONE (00:19)
[2021-12-09] MEDS: MORPHINE 4 MG/ML SYR IV PRN ×2 (00:19→04:02)
[2021-12-09] MEDS: ONDANSETRON 4 MG/2 ML VIAL IV PRN (00:20)
[2021-12-09] MEDS: INSULIN -REGULAR HUMAN 100 UNIT in NA CHLORIDE 0.9% 100 ML IV SCH (01:00)
[2021-12-09] MEDS: D5 0.45 NS 1,000 ML IV SCH (04:01)
[2021-12-09 05:33] LABS: Hematocrit 32.7 % (36.0-45.0); Lymphocytes % 51.3 % (15.3-44.8); MPV 6.9 fL (7.6-11.3); RBC Red Blood Cell Count 4.02 M/uL (3.86-4.86)
[2021-12-09 05:36] LABS: Albumin 3.3 g/dL (3.4-5.0); Bilirubin Total 0.3 mg/dL (0.2-1.0); Potassium 3.5 mmol/L (3.5-5.1); Protein, Total 6.6 g/dL (6.4-8.2)
[2021-12-09 05:49] LABS: LDL, Direct 76 mg/dL (100-129)
[2021-12-09 06:37] LABS: Magnesium 1.9 mg/dL (1.8-2.4)
[2021-12-09 06:47] LABS: Blood Morphology Comment NOT SEEN (NOT SEEN); Platelet Estimate ADEQ
[2021-12-09] MEDS: PANTOPRAZOLE 40 MG INJ IVP SCH (08:09)
[2021-12-09] MEDS: ENOXAPARIN 40 MG/0.4 ML SQ SCH (08:10)
[2021-12-09 08:17] VITALS: O2SAT 96
[2021-12-09] MEDS ORDERED: FENOFIBRATE 160 MG TAB PO SCH (09:00)
[2021-12-09] MEDS ORDERED: POTASSIUM CL SA 10 MEQ TAB PO ONE (09:00)
[2021-12-09] MEDS ORDERED: BENZONATATE 100 MG CAP PO PRN (11:10)
[2021-12-09 14:07] VITALS: TEMP 97.4
[2021-12-09 14:08] VITALS: BP 118/87
--- NOTE | 2021-12-09 18:33 | P.DS ---
Admission Date: 12/07/21 Discharge Date: 12/09/21 Disposition: ROUTINE DISCHARGE Discharge Condition: GOOD Reason for Admission: abdominal pain; pancreatitis - Problems (1) Acute pancreatitis Status: Acute Qualifiers: Pancreatitis type: idiopathic Acute pancreatitis complication: no infection or necrosis Qualified Code(s): K85.00 - Idiopathic acute pancreatitis without necrosis or infection (2) Hypertriglyceridemia Onset Date: 11/10/17 Status: Acute (3) Morbid obesity Status: Chronic Brief History of Present Illness: 41yo F, with PMH of pancreatitis, hypertriglyceridemia, insulin-dependent DM 2, prior episodes of pancreatitis presented to the ED with several days of abdominal pain. Pain located in the epigastric region, associated with nausea and vomiting. Patient has been unable to keep any food or drink down for 2-3 days. She denied any change in medications. In the ED, patient was noted to have hypertriglyceridemia, with significant tenderness in the epigastric region. Patient was admitted for further treatment for acute pancreatitis. Hospital Course: Diagnosis Acute pancreatitis Hypertriglyceridemia IDDM2 with hyperglycemia Hospital course Patient admitted to the ICU and treated for acute pancreatitis with supportive measures, and hypertriglyceridemia with insulin drip. Lipase level was normal. High triglyceride level improved from 1000 to 440 on the insulin drip. Patient eventually weaned off insulin drip after triglyceride improved. Has symptoms- abdominal pain and nausea resolved. She tolerated her meals. Home dose insulin metformin and Victoza resumed on discharge. Patient is on high-dose insulin. I emphasized adherence to ADA diet given her high hemoglobin A1c. Patient deemed stable for discharge. Vital Signs/Physical Exam: Temp Pulse Resp BP Pulse Ox 97.4 F 115 H 20 118/87 99 12/09/21 12:00 12/09/21 13:06 12/09/21 13:06 12/09/21 13:06 12/09/21 06:00 General: Alert, In no apparent distress, Oriented x3 HEENT: Mucous membr. moist/pink Neck: JVD not distended Respiratory: Clear to auscultation bilaterally, Normal air movement Cardiovascular: No edema, Regular rate/rhythm, Normal S1 S2 Gastrointestinal: Normal bowel sounds, Soft and benign, Non-distended, No tenderness Musculoskeletal: No swelling Integumentary: No rashes Neurological: Normal strength at 5/5 x4 extr Laboratory Data at Discharge: WBC 5.9 K/uL (4.3-10.9) 12/09/21 04:46 Hgb 10.9 g/dL (12.0-15.0) L 12/09/21 04:46 Hct 32.7 % (36.0-45.0) L 12/09/21 04:46 Plt Count 255 K/uL (152-406) 12/09/21 04:46 Sodium 141 mmol/L (136-145) 12/09/21 04:46 Potassium 3.5 mmol/L (3.5-5.1) 12/09/21 04:46 BUN 6 mg/dL (7-18) L 12/09/21 04:46 Creatinine 0.81 mg/dL (0.55-1.3) 12/09/21 04:46 Glucose 94 mg/dL (74-106) 12/09/21 04:46 Phosphorus 3.0 mg/dL (2.5-4.9) 12/09/21 04:46 Magnesium 1.9 mg/dL (1.8-2.4) 12/09/21 04:46 Total Bilirubin 0.3 mg/dL (0.2-1.0) 12/09/21 04:46 AST 28 U/L (15-37) 12/09/21 04:46 ALT 45 U/L (12-78) 12/09/21 04:46 Alkaline Phosphatase 37 U/L (45-117) L 12/09/21 04:46 Triglycerides 442 mg/dL (<150) H 12/09/21 04:46 Cholesterol Cancelled 12/08/21 06:00 LDL Cholesterol Direct 76 mg/dL (100-129) L 12/09/21 04:46 HDL Cholesterol Cancelled 12/08/21 06:00 Cholesterol/HDL Ratio Cancelled 12/08/21 06:00 Lipase 201 U/L (73-393) 12/07/21 05:32 Home Medications: Metformin HCl 1,000 mg PO BID 09/16/17 Atorvastatin Calcium [Lipitor] 80 mg PO BEDTIME 12/07/21 Fenofibrate,Micronized [Fenofibrate] 1 tab PO DAILY 12/07/21 Glipizide [Glipizide ER] 10 mg PO BID 12/07/21 Liraglutide [Victoza 2-Christofer] 0.6 mg SQ 12/07/21 Lisinopril [Zestril] 10 mg PO DAILY 12/07/21 Insulin Degludec [Tresiba Flextouch U-100] 70 units SQ BID #15 ml 12/09/21 New Medications: Insulin Degludec [Tresiba Flextouch U-100] 70 units SQ BID #15 ml Physician Discharge Instructions: PROBLEM: Hypertriglyceridemia, Pancreatitis GOAL: Clear understanding of disease process INSTRUCTIONS: Please follow up with PCP in 1-2 weeks. Please follow a diabetic diet and monitor carb/fat intake. Diet information provided. If symptoms worsen, please go to the ER. If you have any questions regarding hospital stay, feel free to call . Diet: ADA Activity: Ad kimberly DME DME: Date Ordered: Name of Company: [employer] Services Needed: None Name of Company: Date or Referral: IMMUNIZATION Influenza Vaccine Indicated: Influenza Vaccine Given: Date Given: Pneumonia Vaccine Indicated: No Pneumonia Vaccine Given: Date Given: Diet: ADA Activity: Ad kimberly Followup: NONE,NONE [Primary Care Provider] - Time spent managing pt's care (in minutes): 38
== END 2021-12-09 13:30 | disposition home or self-care (01) | DRG 439 ==
LOC: ER 05:17 → ERHOLD 07:44 → 3RD-ICU 14:13
PROVIDERS: ADMIT Hospitalist; ATTEND Hospitalist
DX: K85.00 Idiopathic acute pancreatitis without necrosis or infection (principal); Z68.41 Body mass index [BMI] 40.0-44.9, adult; E78.1 Pure hyperglyceridemia; E66.01 Morbid (severe) obesity due to excess calories; E11.65 Type 2 diabetes mellitus with hyperglycemia; Z20.822 Contact with and (suspected) exposure to COVID-19; Z79.4 Long term (current) use of insulin
CPT/HCPCS: 36415; 74177; 80053; 80061; 81003; 82947; 83036; 83605; 83690; 83735; 84100; 84132; 84478; 85025; 96361; 96374; 96375; 99285; C9113; J1650; J1815; J2405; J2550; J2920; J3475; J7030; J7799; Q9967; U0003

== ENCOUNTER 2022-01-03 22:49 | Observation (INO) | payer OTHER ==
--- OUTSIDE RECORDS SUMMARY | 2022-01-03 22:56 | XMS REPORT | Continuity of Care Document ---
:1980 Author Organization [facility] t Address [address] [place] [address] Care Team Providers Name Role Phone HENNY Kandice [facility] Primary Care Physic diana Unavailable Cinthia [...] Date Expiration Date Nakul zavala [employer] GENERIC [id number] 2019 00:00:00 COMMERCIAL [id number] 2021 NON-CONTRACT 00:00:00 GENERIC Problems Condition Condition Condition Status Onset Resolution Last Treating Co mments Source Name Details Category Date Date Treatment Clinician Date Essential Essential Disease Active Uni vers hypertensi hypertensi 5-26 it y of on on 00:00: [place] [facility] POTS POTS Disease Active Univers (postural (postural 5-26 ity of orthostati orthost[place] Medical tachycardi tachycardi Br anch a a syndrome) syndrome) Dyslipidem Dyslipidem Disease Active U nivers ia ia 5-26 ity of 00:00: [place] [facility] Atypical Atypical Disease Active Unive rs chest pain chest pain 5-25 it y of 00:00: [place] [facility] Pancreatit Pancreatit Disease Active U nivers is, is, 4-24 it[facility] recurrent [facility] Pain at Pain at Disease Active Univers surgical surgical 1-30 ity of incision incision 00:00: [place] [facility] Mood Mood Disease Active Univers swings swings 1-30 ity of 00:00: [place] [facility] Gestationa Gestationa Disease Active 2012-07 U [...] y of ies in ies in 00:00: [place] shape or shape or 00 Medica l [...] the original. 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 Immune to Disease Active [...] 00 [facility] FA Active [facility]- [place] 00:00: [facility] 00 [facility] tequila DA Active [facility] hives [facility] 1- [place] 00:00: [facility] 00 dic [facility] alcohol FA Active MO [facility] 01-15 [place] 00:00: Orth[facility] 00 dic [facility]osp[facility] alcohol FA Active MO [facility]ES [facility] [place] 01-15 [place] 00:00: Orthope 00 dic Hospita l tequila DA Active MO hives [facility] 01-09 [place] 00:00: [place] 00 [facility] alcohol FA Active [facility] 2015-07 [facility] 09-06 [place] 00:00: Orth[facility] 00 dic [facility]ospita [facility] alcohol FA Active [facility] TURNS RED 2015-07 [facility] 09-06 [place] 00:00: Orthope 00 dic Hospita l NO KNOWN Drug Active Univers ALLERGIE Class ity of S [facility] Social History Social Habit Start Date Stop Date Quantity Comments Source History SDOH University o f Alcohol Frequency [facility] edical [place] History SDSD University o f Alcohol Std [place] Medical Drinks Branch History SDSD University o f Alcohol Binge [place] Medic al Branch Exposure to Not sure [facility] SARS-CoV-2 [facility] (event) [place] Alcohol intake 2021-10-16 2021-10-16 Current drinker of Un iversity of 00:00:00 00:00:00 alcohol (finding) [facility] Alcohol Comment 2019-08-15 2019-08-15 ocassionally Univers ity of 00:00:00 00:00:00 [facility] Tobacco use and 2011-12-19 2011-12-19 Never used Universit y of exposure 00:00:00 00:00:00 [facility] Sex [birth year] Universit y of 00:00:00 00:00:00 [facility] Smoking Status Start Date Stop Date Source Never smoker [facility] Medications Ordered Filled Start Stop Current [...] ity of human 02:00: 01:14 from 10.34 [place] (HUMULIN R) 00 :00 Units = Medic [...] dose, On Branch Tue10/16/21 at 1815, Routine
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 ondansetron Yes [id number] 4mg Take 1 Univers 4 mg 4-08 [...] 7 days. Indication s: acute pain ketorolac No 15mg 15 mg, Unive rs (TORADOL) 09-22-16 Slow IV ity of injection 17:00: 16:59 [place], Q6H, [place] 15 mg 00 :00 4 doses, Medical First dose Branch on Tue09/22/21 at 1200, Last dose on Tue09/23/21 at 0600, Routine NaCl 0.9% No 1000mL at 999 [...] Tue Branch 09/22/21 at 1015, Routine morpHINE 2020-07 No 4mg 4 mg, Slow Un fabiana [...] Indication s: acute pain ondansetron 2020-07 Yes [id number] 4mg Take 1 Univers 4 mg 2-09 [...] Indication s: acute pain ondansetron 2020-07 Yes [id number] 4mg Take 1 Univers 4 mg 2-09 [...] Indication s: acute pain ondansetron 2020-07 Yes [id number] 4mg Take 1 Univers 4 mg 2-09 [...] Indication s: acute pain ondansetron 2020-07- No [id number] 4mg Take 1 Univers 4 mg 08-19 [...] 05/30/21 at 1800, Routine iopamidol 2020-07 No [id number] 100mL 100 mL, Univers (ISOVUE 07-30 9109 Intravenou ity o f 370-500 mL) 23:48: 23:48 s, ONCE, 1 [place] injection 00 :00 dose, On Medica l 100 mL Sat Branch 05/30/21 at 1800, Routine ibuprofen 2020-07 Yes [id number] 600mg Take 1 Univers 600 mg -20 [id number] tablet by ity of tablet 00:00: mouth [place] 00 every 6 Medical (six) Branch hours as needed for Pain (scale 4-6). traMADoL 50 2020-07 Yes [id number] 50mg Take 1 Univ ers mg tablet 1-20 tablet by ity o f 00:00: mouth [place] 00 every 6 Medical (six) Branch hours as needed for Pain (scale 7-10). Indication s: acute pain ibuprofen 2020-07 Yes [id number] 600mg Take 1 Univers 600 mg 1-20 [id number] tablet by ity of tablet 00:00: mouth [place] 00 every 6 Medical (six) Branch hours as needed for Pain (scale 4-6). traMADoL 50 2020-07 Yes [id number] 50mg Take 1 Univ ers mg tablet 1-20 tablet by ity o f 00:00: mouth [place] 00 every 6 Medical (six) Branch hours as needed for Pain (scale 7-10). Indication s: acute pain ibuprofen 2020-07 Yes [id number] 600mg Take 1 Univers 600 mg 1-20 [id number] tablet by ity of tablet 00:00: mouth [place] 00 every 6 Medical (six) Branch hours as needed for Pain (scale 4-6). traMADoL 50 2020-07 Yes [id number] 50mg Take 1 Univ ers mg tablet 1-20 tablet by ity o f 00:00: mouth [place] 00 every 6 Medical (six) Branch hours as needed for Pain (scale 7-10). Indication s: acute pain ibuprofen 2020-07 Yes [id number] 600mg Take 1 Univers 600 mg 1-20 [id number] tablet by ity of tablet 00:00: mouth [place] 00 every 6 Medical (six) Branch hours as needed for Pain (scale 4-6). traMADoL 50 2020-07 Yes [id number] 50mg Take 1 Univ ers mg tablet 1-20 tablet by ity o f 00:00: mouth [place] 00 every 6 Medical (six) Branch hours as needed for Pain (scale 7-10). Indication s: acute pain ibuprofen 2020-07 Yes [id number] 600mg Take 1 Univers 600 mg 1-20 [id number] tablet by ity of tablet 00:00: mouth [...] Indication s: acute pain VASCEPA 1 Yes [id number] TAKE 3 U nivers gram 9-10 CAPSULES ity of capsule 00:00: BY MOUTH [place] 00 EVERY DAY Medical Branch VASCEPA 1 Yes [id number] TAKE 3 U nivers gram 9-10 CAPSULES ity of capsule 00:00: BY MOUTH [place] EVERY DAY Medical Branch VASCEPA 1 2020-0 Yes [id number] TAKE 3 U nivers gram 9-10 CAPSULES ity of capsule 00:00: BY MOUTH [place] EVERY DAY Medical Branch VASCEPA 1 2020-0 Yes [id number] TAKE 3 U nivers gram 9-10 CAPSULES ity of capsule 00:00: BY MOUTH [place] EVERY DAY Medical Branch VASCEPA 1 2020-0 Yes [id number] TAKE 3 U nivers gram 9-10 CAPSULES ity of capsule 00:00: BY MOUTH [place] EVERY DAY Medical Branch VASCEPA 1 2020-0 Yes [id number] TAKE 3 U nivers gram 9-10 CAPSULES ity of capsule 00:00: BY MOUTH [place] EVERY DAY Medical Branch icosapent 2020-0 2020- No [id number] 3g Take 3 Univers ethyL 6-02 09-10 capsules ity of (VASCEPA) 1 00:00: 00:00 by mouth [place] gram 00 :00 daily. Medical capsule Branch Lactobacill Yes Take by Un fabiana us 5-27 mouth. ity of acidophilus 22:32: [place] (PROBIOTIC 10 Medical ORAL) Branch MULTIVITAMI Yes Take by Un fabiana N ORAL 5-27 mouth. ity of 22:32: [place] [address] Medical Branch multivitami Yes Take by Un fabiana n with 5-27 mouth. ity of minerals 22:32: [place] (HAIR,SKIN 10 Medical AND NAILS Branch ORAL) Lactobacill Yes Take by Un fabiana us 5-27 mouth. ity of acidophilus 17:32: [place] (PROBIOTIC 10 Medical ORAL) Branch MULTIVITAMI Yes Take by Un fabiana N ORAL 5-27 mouth. ity of 17:32: [place] [address] Medical Branch multivitami Yes Take by Un fabiana n with 5-27 mouth. ity of minerals 17:32: [place] (HAIR,SKIN 10 Medical AND NAILS Branch ORAL) Lactobacill Yes Take by Un fabiana us 5-27 mouth. ity of acidophilus 17:32: [place] (PROBIOTIC 10 Medical ORAL) Branch MULTIVITAMI Yes [...] us 5-27 mouth. ity of acidophilus 17:32: [place] (PROBIOTIC 10 Medical ORAL) Branch MULTIVITAMI Yes [...] times Branch daily with meals. insulin Yes [id number] 35U inject 35 Univers degludec 4-30 Units ity of (TRESIBA 00:00: [place] FLEXTOUCH 00 skin 2 Medical U-100) 100 (two) Branch unit/mL (3 times mL) InPn daily. atorvastati Yes 40mg Take 1 Univ ers n 40 mg 4-30 tablet by ity of tablet 00:00: mouth at [place] bedtime. Medical Branch fenofibrate Yes 134mg Take 1 Uni vers micronized 4-30 capsule by ity of 134 mg 00:00: [place] 00 daily. Medical Branch metFORMIN Yes [id number] 1000mg Take 1 Univers 1,000 mg 4-30 tablet by ity of tablet 00:00: mouth (two) Medical times Branch daily with meals. blood sugar 0 Yes [id number] Use daily Univers diagnostic 4-30 Dx E11.65 ity of (ONETOUCH 00:00: [place] VERIO TEST 00 Medical STRIPS) Branch strip lancets 2020-0 Yes [id number] Use daily Univers (ONE TOUCH 4-30 Dx E11.65 ity of DELICA) 33 00:00: [place] gauge Misc 00 Medical Branch gabapentin 2020-0 Yes [id number] 600mg Take 1 Univers 600 mg 4-30 tablet by ity of tablet 00:00: mouth 2 (two) Medical times Branch daily. lisinopriL 0 Yes [id number] 2.5mg Take 1 Univers 2.5 mg 4-30 tablet by ity of tablet 00:00: mouth [place] 00 daily. Medical Branch insulin 0 Yes [id number] 35U inject 35 Univers degludec 4-30 Units ity of (TRESIBA 00:00: [place] FLEXTOUCH 00 skin 2 Medical U-100) 100 (two) Branch unit/mL (3 times mL) InPn daily. atorvastati Yes 40mg Take 1 Univ ers n 40 mg 4-30 tablet by ity of tablet 00:00: mouth at [place] 00 bedtime. Medical Branch fenofibrate Yes 134mg Take 1 Uni vers micronized 4-30 capsule by ity of 134 mg 00:00: mouth [place] capsule 00 daily. Medical Branch metFORMIN Yes [id number] 1000mg Take 1 Univers 1,000 mg 4-30 tablet by ity of tablet 00:00: mouth 2 [place] 00 (two) Medical times Branch daily with meals. blood sugar Yes [id number] Use daily Univers diagnostic 4-30 Dx E11.65 ity of (ONETOUCH 00:00: [place] VERIO TEST 00 Medical STRIPS) Branch strip lancets Yes [id number] Use daily Univers (ONE TOUCH 4-30 Dx E11.65 ity of DELICA) 33 00:00: [place] gauge Misc 00 Medical Branch gabapentin Yes [id number] 600mg Take 1 Univers 600 mg 4-30 tablet by ity of tablet 00:00: mouth 2 [place] 00 (two) Medical times Branch daily. lisinopriL Yes [id number] 2.5mg Take 1 Univers 2.5 mg 4-30 tablet by ity of tablet 00:00: mouth [place] 00 daily. Medical Branch insulin Yes [id number] 35U inject 35 Univers degludec 4-30 Units ity of (TRESIBA 00:00: [place] FLEXTOUCH 00 skin 2 Medical U-100) 100 (two) Branch unit/mL (3 times mL) InPn daily. atorvastati Yes 40mg Take 1 Univ ers n 40 mg 4-30 tablet by ity of tablet 00:00: mouth at [place] 00 bedtime. Medical Branch fenofibrate Yes 134mg Take 1 Uni vers micronized 4-30 capsule by ity of 134 mg 00:00: mouth [place] capsule 00 daily. Medical Branch metFORMIN Yes [id number] 1000mg Take 1 Univers 1,000 mg 4-30 tablet by ity of tablet 00:00: mouth 2 (two) Medical times Branch daily with meals. blood sugar 0 Yes [id number] Use daily Univers diagnostic 4-30 Dx E11.65 ity of (ONETOUCH 00:00: [place] VERIO TEST 00 Medical STRIPS) Branch strip lancets 0 Yes [id number] Use daily Univers (ONE TOUCH 4-30 Dx E11.65 ity of DELICA) 33 00:00: [place] [facility] 00 Medical Branch gabapentin Yes [id number] 600mg Take 1 Univers 600 mg 4-30 tablet by ity of tablet 00:00: mouth 2 [place] (two) Medical times Branch daily. lisinopriL Yes [id number] 2.5mg Take 1 Univers 2.5 mg 4-30 tablet by ity of tablet 00:00: mouth [place] 00 daily. Medical Branch insulin Yes [id number] 35U inject 35 Univers degludec 4-30 Units ity of (TRESIBA 00:00: [place] FLEXTOUCH 00 skin 2 Medical U-100) 100 (two) Branch unit/mL (3 times mL) InPn daily. atorvastati Yes 40mg Take 1 Univ ers n 40 mg 4-30 tablet by ity of tablet 00:00: mouth at [place] 00 bedtime. Medical Branch fenofibrate Yes 134mg Take 1 Uni vers micronized 4-30 capsule by ity of 134 mg 00:00: mouth [place] capsule 00 daily. Medical Branch metFORMIN Yes [id number] 1000mg Take 1 Univers 1,000 mg 4-30 tablet by ity of tablet 00:00: mouth 2 [place] (two) Medical times Branch daily with meals. blood sugar 0 Yes [id number] Use daily Univers diagnostic 4-30 Dx E11.65 ity of (ONETOUCH 00:00: [place] VERIO TEST 00 Medical STRIPS) Branch strip lancets 0 Yes [id number] Use daily Univers (ONE TOUCH 4-30 Dx E11.65 ity of DELICA) 33 00:00: [place] gauge Misc 00 Medical Branch gabapentin 0 Yes [id number] 600mg Take 1 Univers 600 mg 4-30 tablet by ity of tablet 00:00: mouth 2 [place] (two) Medical times Branch daily. lisinopriL 0 Yes [id number] 2.5mg Take 1 Univers 2.5 mg 4-30 tablet by ity of tablet 00:00: mouth [place] 00 daily. Medical Branch insulin 0 Yes [id number] 35U inject 35 Univers degludec 4-30 Units ity of (TRESIBA 00:00: [place] FLEXTOUCH 00 skin 2 Medical U-100) 100 (two) Branch unit/mL (3 times mL) InPn daily. atorvastati Yes 40mg Take 1 Univ ers n 40 mg 4-30 tablet by ity of tablet 00:00: mouth at [place] [address] bedtime. Medical Branch fenofibrate 0 Yes 134mg Take 1 Uni vers micronized 4-30 capsule by ity of 134 mg 00:00: mouth [facility] 00 daily. Medical Branch metFORMIN Yes [id number] 1000mg Take 1 Univers 1,000 mg 4-30 tablet by ity of tablet 00:00: mouth 2 [place] 00 (two) Medical times Branch daily with meals. blood sugar Yes [id number] Use daily Univers diagnostic 4-30 Dx E11.65 ity of (ONETOUCH 00:00: [place] VERIO TEST 00 Medical STRIPS) Branch strip lancets 2020-0 Yes [id number] Use daily Univers (ONE TOUCH 4-30 Dx E11.65 ity of DELICA) 33 00:00: [facility] 00 Medical Branch gabapentin 0 Yes [id number] 600mg Take 1 Univers 600 mg 4-30 tablet by ity of tablet 00:00: mouth 2 [place] 00 (two) Medical times Branch daily. lisinopriL 2020-0 Yes [id number] 2.5mg Take 1 Univers 2.5 mg 4-30 tablet by ity of tablet 00:00: mouth [place] 00 daily. Medical Branch insulin 0 Yes [id number] 35U inject 35 Univers degludec 4-30 Units ity of (TRESIBA 00:00: [place] FLEXTOUCH 00 skin 2 Medical U-100) 100 (two) Branch unit/mL (3 times mL) InPn daily. atorvastati Yes 40mg Take 1 Univ ers n 40 mg 4-30 tablet by ity of tablet 00:00: mouth at [place] 00 bedtime. Medical Branch fenofibrate Yes 134mg Take 1 Uni vers micronized 4-30 capsule by ity of 134 mg 00:00: mouth [place] capsule 00 daily. Medical Branch metFORMIN Yes [id number] 1000mg Take 1 Univers 1,000 mg 4-30 tablet by ity of tablet 00:00: mouth 2 [place] 00 (two) Medical times Branch daily with meals. blood sugar Yes [id number] Use daily Univers diagnostic 4-30 Dx E11.65 ity of (ONETOUCH 00:00: [place] VERIO TEST 00 Medical STRIPS) Branch strip lancets Yes [id number] Use daily Univers (ONE TOUCH 4-30 Dx E11.65 ity of DELICA) 33 00:00: [facility] 00 Medical Branch gabapentin Yes [id number] 600mg Take 1 Univers 600 mg 4-30 tablet by ity of tablet 00:00: mouth 2 [place] 00 (two) Medical times Branch daily. lisinopriL Yes [id number] 2.5mg Take 1 Univers 2.5 mg 4-30 tablet by ity of tablet 00:00: mouth [place] 00 daily. Medical Branch FREESTYLE 2020-0 Yes [id number] 1{each} 1 Each Univers BRENDA 14 3-03 every 14 ity of DAY SENSOR 00:00: (fourteen) [place] Kit 00 days. Medical Branch FREESTYLE 2020-0 Yes [id number] 1{each} 1 Each Univers BRENDA 14 3-03 daily. ity of DAY READER 00:00: [facility] 00 Medical Branch FREESTYLE 2020-0 Yes [id number] 1{each} 1 Each Univers BRENDA 14 3-03 every 14 ity of DAY SENSOR 00:00: (fourteen) [place] Kit 00 days. Medical Branch FREESTYLE 2020-0 Yes [id number] 1{each} 1 Each Univers BRENDA 14 3-03 daily. ity of DAY READER 00:00: [facility] 00 Medical Branch FREESTYLE 2020-0 Yes [id number] 1{each} 1 Each Univers BRENDA 14 3-03 every 14 ity of DAY SENSOR 00:00: (fourteen) [place] Kit 00 days. Medical Branch FREESTYLE 2020-0 Yes [id number] 1{each} 1 Each Univers BRENDA 14 3-03 daily. ity of DAY READER 00:00: [facility] 00 Medical Branch FREESTYLE 2020-0 Yes [id number] 1{each} 1 Each Univers BRENDA 14 3-03 every 14 ity of DAY SENSOR 00:00: (fourteen) [place] Kit 00 days. Medical Branch FREESTYLE 2020-0 Yes [id number] 1{each} 1 Each Univers BRENDA 14 3-03 daily. ity of DAY READER 00:00: [facility] 00 Medical Branch FREESTYLE 2020-0 Yes [id number] 1{each} 1 Each Univers BRENDA 14 3-03 every 14 ity of DAY SENSOR 00:00: (fourteen) [place] Kit 00 days. Medical Branch FREESTYLE 2020-0 Yes [id number] 1{each} 1 Each Univers BRENDA 14 3-03 daily. ity of DAY READER 00:00: [facility] 00 Medical Branch FREESTYLE 2020-0 Yes [id number] 1{each} 1 Each Univers BRENDA 14 3-03 every 14 ity of DAY SENSOR 00:00: (fourteen) [place] Kit 00 days. Medical Branch FREESTYLE 2020-0 Yes [id number] 1{each} 1 Each Univers BRENDA 14 3-03 daily. ity of DAY READER 00:00: [facility] Medical Branch traMADol 2018-07 Yes [id number] 50mg Take 1 Uni vers (ULTRAM) 50 2-28 tablet by ity of mg tablet 00:00: mouth [place] 00 every 6 Medical (six) Branch hours as needed for Pain (scale 7-10). ondansetron 2018-07 Yes [id number] 4mg Take 1 Univers (ZOFRAN) 4 2-28 tablet by ity of mg tablet 00:00: mouth [place] [address] every 8 Medical (eight) Branch hours as needed for Nausea and Vomiting (N/V). ondansetron 2018-07 Yes [id number] 4mg Take 1 Univers (ZOFRAN) 4 2-28 tablet by ity of mg tablet 00:00: mouth [place] [address] every 8 Medical (eight) Branch hours as needed for Nausea and Vomiting (N/V). ondansetron 2018-07 Yes [id number] 4mg Take 1 Univers (ZOFRAN) 4 2-28 tablet by ity of mg tablet 00:00: mouth [place] 00 every 8 Medical (eight) Branch hours as needed for Nausea and Vomiting (N/V). ondansetron 2018-07 Yes [id number] 4mg Take 1 Univers (ZOFRAN) 4 2-28 tablet by ity of mg tablet 00:00: mouth [place] 00 every 8 Medical (eight) Branch hours as needed for Nausea and Vomiting (N/V). ondansetron 2018-07 Yes [id number] 4mg Take 1 Univers (ZOFRAN) 4 2-28 tablet by ity of mg tablet 00:00: mouth [place] 00 every 8 Medical (eight) Branch hours as needed for Nausea and Vomiting (N/V). ondansetron 2018-07 Yes [id number] 4mg Take 1 Univers (ZOFRAN) 4 2-28 tablet by ity of mg tablet 00:00: mouth [place] 00 every 8 Medical (eight) Branch hours as needed for Nausea and Vomiting (N/V). traMADol 2018-07- No [id number] 50mg Take 1 Un fabiana (ULTRAM) 50 2-28 11-20 tablet by it y of mg tablet 00:00: 00:00 mouth [place] 00 :00 every 6 Medical (six) Branch hours as needed for Pain (scale 7-10). hydrOXYzine Yes [id number] 10mg Take 1 Univers 10 mg 9-13 tablet by ity of tablet 00:00: mouth [place] 00 every 6 Medical (six) Branch hours. hydrOXYzine Yes [id number] 10mg Take 1 Univers 10 mg 9-13 tablet by ity of tablet 00:00: mouth [place] 00 every 6 Medical (six) Branch hours. hydrOXYzine 2018- Yes [id number] 10mg Take 1 Univers 10 mg 9-13 tablet by ity of tablet 00:00: mouth [place] 00 every 6 Medical (six) Branch hours. hydrOXYzine 2018- Yes [id number] 10mg Take 1 Univers 10 mg 9-13 tablet by ity of tablet 00:00: mouth [place] 00 every 6 Medical (six) Branch hours. hydrOXYzine 2018- Yes [id number] 10mg Take 1 Univers 10 mg 9-13 tablet by ity of tablet 00:00: mouth [place] 00 every 6 Medical (six) Branch hours. hydrOXYzine 2018-0 Yes [id number] 10mg Take 1 Univers 10 mg 9-13 tablet by ity of tablet 00:00: mouth [place] 00 every 6 Medical (six) Branch hours. Lancets & 2013- Yes Univers Blood 2-14 ity of Glucose 00:00: [place] Strips (ONE 00 Medical TOUCH Branch COMBO) [facility] & 2013- Yes Univers Blood 2-14 ity of Glucose 00:00: [place] Strips (ONE 00 Medical TOUCH Branch COMBO) [facility] & 2012- Yes Univers Blood 2-14 ity of Glucose 00:00: [place] Strips (ONE 00 Medical TOUCH Branch COMBO) [facility] & 2012- Yes Univers Blood 2-14 ity of Glucose 00:00: [place] Strips (ONE 00 Medical TOUCH Branch COMBO) [facility] Lanc[facility] & 2012- Yes Univers Blood 2-14 ity of Glucose 00:00: [place] Strips (ONE 00 Medical TOUCH Branch COMBO) [facility] Lanc[facility] & 2012- Yes Univers Blood 2-14 ity of Glucose 00:00: [place] Strips (ONE 00 Medical TOUCH Branch COMBO) [facility] Blood-Gluco Yes Univer s se Meter 6-05 [...] Immunizations Ordered Filled Immunization Date Status Comments [facility] e Immunization Name Name Pneumococcal 2020-05-21 Completed University o f Polysaccharide, 00:00:00 [place] Med ical PPSV23 (PNEUMOVAX) Branch TDAP 2020-05-21 Completed University of 00:00:00 [facility] Pneumococcal 2020-05-21 Completed University o f Polysaccharide, 00:00:00 [place] Med ical PPSV23 (PNEUMOVAX) Branch TDAP 2020-05-21 Completed University of 00:00:00 [facility] Pneumococcal 2020-05-21 Completed University o f Polysaccharide, 00:00:00 [place] Med ical PPSV23 (PNEUMOVAX) Branch TDAP 2020-05-21 Completed University of 00:00:00 [facility] Pneumococcal 2020-05-21 Completed University o f Polysaccharide, 00:00:00 [place] Med ical PPSV23 (PNEUMOVAX) Branch TDAP 2020-05-21 Completed University of 00:00:00 [facility] Pneumococcal 2020-05-21 Completed University o f Polysaccharide, 00:00:00 [place] Med ical PPSV23 (PNEUMOVAX) Branch TDAP 2020-05-21 Completed University of 00:00:00 [facility] Pneumococcal 2020-05-21 Completed University o f Polysaccharide, 00:00:00 [place] Med ical PPSV23 (PNEUMOVAX) Branch TDAP 2020-05-21 Completed University of 00:00:00 [facility] MMR 2013-07-25 Completed University of 00:00:00 [facility] MMR 2013-07-25 Completed University of 00:00:00 [facility] MMR 2013-07-25 Completed University of 00:00:00 [facility] MMR 2013-07-25 Completed University of 00:00:00 [facility] MMR 2013-07-25 Completed University of 00:00:00 [facility] MMR 2013-07-25 Completed University of 00:00:00 [facility] TDAP 2013-05-21 Completed University of 00:00:00 [facility] TDAP 2013-05-21 Completed University of 00:00:00 [facility] TDAP 2013-05-21 Completed University of 00:00:00 [facility] TDAP 2013-05-21 Completed University of 00:00:00 [facility] TDAP 2013-05-21 Completed University of 00:00:00 [facility] TDAP 2013-05-21 Completed University of 00:00:00 [facility] Influenza Virus 2013-03-19 Completed Universit y of Vaccine 00:00:00 [facility] Influenza Virus 2013-03-19 Completed Universit y of Vaccine 00:00:00 [facility] Influenza Virus 2013-03-19 Completed Universit y of Vaccine 00:00:00 [facility] Influenza Virus 2013-03-19 Completed Universit y of Vaccine 00:00:00 [facility] Influenza Virus 2013-03-19 Completed Universit y of Vaccine 00:00:00 [facility] Influenza Virus 2013-03-19 Completed Universit y of Vaccine 00:00:00 [facility] Rubella 2008-04-17 Completed University of 00:00:00 [facility] Rubella 2008-04-17 Completed University of 00:00:00 [facility] Rubella 2008-04-17 Completed University of 00:00:00 [facility] Rubella 2008-04-17 Completed University of 00:00:00 [facility] Rubella 2008-04-17 Completed University of 00:00:00 [facility] Rubella 2008-04-17 Completed University of 00:00:00 [facility] Td 2004-07-11 Completed University of 00:00:00 [facility] Td 2004-07-11 Completed [facility] of 00:00:00 [facility] Td 2004-07-11 Completed [facility] 00:00:00 [facility] Td 2004-07-11 Completed [facility] 00:00:00 [facility] Td 2004-07-11 Completed [facility] 00:00:00 [facility] Td 2004-07-11 Completed [facility] 00:00:00 [facility] Vital Signs Vital Name Observation Time Observation Value Comments Source Systolic blood 2021-10-17 02:05:00 117 mm[Hg] Univer sity of pressure [facility] Diastolic blood 2021-10-17 02:05:00 63 mm[Hg] Unive rsity of pressure [facility] Heart rate 2021-10-17 02:05:00 76 /min [facility] Respiratory rate 2021-10-17 02:05:00 18 /min [facility] Oxygen saturation in 2021-10-17 02:05:00 98 /min [facility] Arterial blood by [facility] Pulse oximetry Branch Body temperature 2021-10-16 22:30:00 37.33 Lorenza [facility] Body weight 2021-10-16 21:38:00 103.42 kg [facility] Branch BMI 2021-10-16 21:38:00 37.94 kg/m2 [facility] Systolic blood 2021-09-22 17:00:00 108 mm[Hg] [facility] Diastolic blood 2021-09-22 17:00:00 77 mm[Hg] Unive [facility]ity [facility] Heart rate 2021-09-22 17:00:00 90 /min [facility] Oxygen saturation in 2021-09-22 17:00:00 97 /min [facility] Arterial blood by [place] [facility] Pulse oximetry Branch Respiratory rate 2021-09-22 15:00:00 18 /min [facility] Body temperature 2021-09-22 14:52:00 37.11 Lorenza [facility] Body weight 2021-09-22 14:52:00 103.42 kg [facility] BMI 2021-09-22 14:52:00 37.94 kg/m2 [facility] Systolic blood 2021-06-18 12:00:00 142 mm[Hg] [facility] Diastolic blood 2021-06-18 12:00:00 94 mm[Hg] Unive [facility] Heart rate 2021-06-18 12:00:00 98 /min [facility] [place] [facility] Body temperature 2021-06-18 12:00:00 36.56 Lorenza [facility] Respiratory rate 2021-06-18 12:00:00 13 /min [facility] Oxygen saturation in 2021-06-18 12:00:00 95 /min [facility] of Arterial blood by [employer] Pulse oximetry Branch Body height 2021-06-18 10:37:00 165.1 cm [facility] Body weight 2021-06-18 10:37:00 107.502 kg [facility] BMI 2021-06-18 10:37:00 39.44 kg/m2 [facility] Systolic blood 2021-05-31 01:34:00 139 mm[Hg] [facility] Diastolic blood 2021-05-31 01:34:00 90 mm[Hg] [facility] Heart rate 2021-05-31 01:34:00 112 /min [facility] Respiratory rate 2021-05-31 01:34:00 20 /min [facility] Oxygen saturation in 2021-05-31 01:34:00 98 /min [facility] blood by [facility] Pulse oximetry Branch Body weight 2021-05-30 21:47:00 107.502 kg [facility] BMI 2021-05-30 21:47:00 40.68 kg/m2 [facility] Procedures Procedure Date / Time Performed Performing Clinician Sourc e POCT GLUCOSE 2021-10-17 01:49:00 Beatriz Eduardo [facility] (AUTOMATED) [facility] POCT GLUCOSE(AGE 2021-10-17 00:41:00 Beatriz Eduardo [facility] >30DAYS) [facility] POCT GLUCOSE 2021-10-17 00:40:00 Beatriz Eduardo [facility] (AUTOMATED) [facility] BLOOD CULTURE SCREEN 2021-10-16 23:26:00 Beatriz Eduardo [facility] BLOOD CULTURE SCREEN 2021-10-16 23:03:00 Beatriz Eduardo [facility] TROPONIN I 2021-10-16 23:03:00 Beatriz Eduardo [facility] COMP. METABOLIC PANEL 2021-10-16 23:03:[address] [facility] ([id number]) [facility] CBC WITH DIFF 2021-10-16 23:03:00 Beatriz Eduardo [facility] URINALYSIS 2021-10-16 23:03:00 Beatriz Eduardo [facility] N-TERMINAL PRO-BNP 2021-10-16 23:03:00 Beatriz Eduardo [facility] LACTIC ACID WHOLE 2021-10-16 23:01:00 Beatriz Eduardo [facility] CT ABDOMEN PELVIS WO 2021-10-16 22:40:13 Beatriz Eduardo [facility] POCT TEST 2021-10-16 22:34:00 Beatriz Eduardo [facility] CONSENT/REFUSAL FOR 2021-10-16 21:34:04 Doctor Unassigned, No [facility] Name [facility] [place] [facility] ABDOMEN PELVIS WO 2021-09-22 15:59:44 [facility] CONTRAST [facility] POCT TEST 2021-09-22 15:18:00 Jn Gallagher [facility] COMP. METABOLIC PANEL 2021-09-22 15:16:00 Singer [facility] ([id number]) [facility] CBC WITH DIFF 2021-09-22 15:16[facility] 2021-09-22 14:58:00 Singer [facility] CONSENT/REFUSAL FOR 2021-09-22 14:47:03 Doctor Unassigned, [facility] Name [facility] TREATMENT POCT GLUCOSE 2021-06-18 13:04:00 Fozia Jang [facility] (AUTOMATED) [facility] CT ABDOMEN PELVIS WO 2021-06-18 12:58:31 Fozia Jang [facility] POCT TEST 2021-06-18 11:06:00 Fozia Jang [facility] CREATINE KINASE 2021-06-18 10:50:00 Lionel Park [facility] COMP. METABOLIC PANEL 2021-06-18 10:50:00 Fozia Jang [facility] ([id number]) Medical Branch CBC WITH DIFF 2021-06-18 10:50:00 Fozia Jang [facility] URINALYSIS 2021-06-18 10:50:00 Fozia Jang [facility] RAPID INFLUENZA A/B 2021-06-18 10:50:00 Fozia Jang [facility] COVID-19 (ID NOW RAPID 2021-06-18 10:50:00 Fozia Jang [facility] TESTING) [facility] Branch NOTICE OF PRIVACY 2021-06-18 10:24:00 Doctor Unassigned, No [facility] [place] [facility] Name Medical [facility] CONSENT/REFUSAL FOR 2021-06-18 10:21:45 Doctor Unassigned, No Un [facility] [place] DIAGNOSIS AND Name Medical Branch TREATMENT CT ABDOMEN PELVIS W 2021-05-30 23:52:43 Mary Espinosa [facility] CONTRAST Medical Branch CT HEAD WO CONTRAST 2021-05-30 23:52:13 Mary Espinosa [facility] [place] XR CHEST 1 VW 2021-05-30 22:38:06 Mary Espinosa [place] [facility] XR HAND 3+ VW LEFT 2021-05-30 22:38:06 [facility] XR FOREARM 2 VW LEFT 2021-05-30 22:28:08 Mary Espinosa [facility] CONSENT/REFUSAL FOR 2021-05-30 21:39:04 Doctor Unassigned, No [facility] [place] DIAGNOSIS AND Name Medical Branch TREATMENT 83.71 2010-08-05 00:00:00 [facility] 77.98 2010-08-05 00:00:00 [facility] Encounters Start End Encounter Admission Attending Care Care Encounter Source Date/Time Date/Time Type Type Clinicians Facility Department ID 2021-05-10 Emergency [facility] [id number] Univers 21:18:12 ity [facility] 2021-05-10 Emergency [facility] [id number] Univers 15:04:50 ity [facility] 2021-05-08 Emergency [facility] [id number] Univers [facility]:08[facility] 2020-08-08 Inpatient Bebeto Valderrama HCAT[facility] RADI [id number] [facility] 15:30:00 [id number] 2020-08-02 Inpatient HCATO CARISSA [id number] [facility] 13:01:00 [id number] [facility] 2020-02-13 Inpatient HCATO CARISSA [id number] [facility] 19:15:00 [id number] [facility] 2020-01-16 Inpatient ERICA Katie, HCAT[facility] SURG [id number] [facility] 16:00:00 Elbert [id number] [facility] 2021-10-16 2021-10-16 Emergency [facility] [id number] Univers 16:39:00 22:23:00 BEATRIZ diaz [facility] 2021-10-16 2021-10-16 Emergency [facility] [id number] Univers 16:39:00 22:23:00 Beatriz [facility] [id number] ity [facility] [id number] [facility] [id number] [address] 2021-09-22 2021-09-22 Emergency X [facility] ERT [id number] Univers 09:56:00 12:05:00 JN diaz [facility] 2021-09-22 2021-09-22 Emergency [facility] [id number] Univers 09:56:00 12:05:00 Jnyariel [facility] [id number] i ty [facility] [id number] [facility] [id number] [address] 2021-08-20 2021-08-20 Cam [facility] [id number] Univers 00:00:00 00:00:00 [facility] [id number] it y kristyn [place] [id number] Blake as DANIELITO?BLEA [id number] [address] MEDICAL OFFICE BUILDING 2021-07-31 2021-07-31 Outpatient Bebeto Valderrama DAYS [id number] [facility] 05:47:00 05:47:00 [facility] 2021-07-31 2021-07-31 Outpatient Bebeto Valderrama [facility] [id number] [facility] 05:47:00 05:47:00 00 [facility] 2021-06-18 2021-06-18 Emergency [facility] ERT [id number] Univers 04:31:00 08:25:00 FOZIA emily [facility] 2021-06-18 2021-06-[address] [facility] [id number] Univers 04:31:00 08:25:00 Fozia Nakul GAG[facility] [id number] ity of [place] [id number] [facility] [id number] [address] 2021-06-10 2021-06-10 Outpatient [facility] [id number] [place] 00:00:00 00:00:[address] 2021-05-30 2021-05-30 Emergency [facility] ERT [id number] Univers 15:49:00 19:42:00 [facility] 2021-05-30 2021-05-30 Emergency [facility] [id number] Univers 15:49:00 19:42:00 Mary Mota SUNIL [id number] i ty of [place] [id number] [facility] [id number] [address] 2021-03-17 2021-03-17 Refill [facility] [id number] Univers 00:00:00 00:00:00 Doron Banuelos [id number] i ty of [place] [id number] [facility] [id number] Mi dical [facility] 220 [facility] 2021-02-27 2021-02-27 [facility] [id number] Univers 15:00:00 15:00:00 DORON [id number] [facility] 2021-02-27 2021-02-27 Outpatient R [facility] [id number] Univers 15:00:00 15:00:00 DORON [facility] 2021-02-19 2021-02-19 Outpatient Anupama GONZALEZ [facility] [id number] Univers 11:30:00 11:30:00 SENDIL [id number] [facility] 2021-01-02 2021-01-02 Outpatient R ROBBIE [facility] [id number]-20 Univers 11:15:00 11:15:00 [place] [facility] 2020-12-23 2020-12-23 Outpatient R ROBBIE [facility] [id number]-20 Univers 16:00:00 16:00:00 FABIO [id number] [facility] 2020-12-23 2020-12-23 Outpatient R ROBBIE [facility] [id number] Univers 16:00:00 16:00:00 [facility] 2020-12-19 2020-12-19 Outpatient R ROBBIE [facility] [id number]-20 Univers 11:00:00 11:00:00 FABIO [id number] [facility] 2020-12-10 2020-12-10 Outpatient R LISA [facility] [id number] Univers 09:00:00 09:53:04 SENDIL [facility] 2020-12-10 2020-12-10 Outpatient R LISA [facility] [id number] Univers 09:00:00 09:00:00 SENDIL [id number] [facility] 2020-11-07 2020-11-07 Outpatient R VALENTINE [facility] [id number] Univers 13:30:00 13:30:00 DORON [facility] 2020-06-02 2020-06-02 Telephone [facility] [id number] 00:00:00 00:00:00 Lily Banuelos [id number] [place] [id number] [facility] [id number] [address] 2020-05-29 2020-05-29 Outpatient R LUIS [facility] [id number] Univers 15:15:00 15:15:00 LESLEE [id number] [facility] 2020-05-29 2020-05-29 [facility] [id number] Univers 15:15:00 15:15:00 LESLEE [facility] 2020-05-27 2020-05-27 Office [facility] [id number] 10:59:24 11:54:17 Visit Lily Love.1.13.10 [place] [id number] [facility] [phone] [facility] 134 [facility] 2020-05-27 2020-05-27 Outpatient R ADRIENNE [facility] [id number] Univers 10:45:00 10:45:00 LILY [id number] y [facility] 2020-05-27 2020-05-27 Outpatient R ADRIENNE [facility] [id number] Univers 10:45:00 10:45:00 LILY [facility] 2020-05-27 2020-05-27 Orders Doctor ARLENE [id number] 00:00:00 00:00:00 Only Unassigned, BENITA 350.1.13.10 [place] [facility] 4.2.7.2.686 [id number] 2020-01-10 2020-01-10 [facility] HCACL LABO [id number] [facility] 18:46:00 18:46:00 Tomiko [id number] [facility] 2020-01-10 2020-01-10 [facility] HC[facility] SURG [id number] [facility] 16:00:00 16:00:00 Tomiko [id number] [facility] 2020-01-04 2020-01-04 Outpatient Fukuda, HCATO RADI [id number] [facility] 13:00:00 13:00:00 Tomiko [id number] [facility] 2019-12-12 2019-12-12 Outpatient R CORINNE [facility] [id number] Univers 16:30:00 16:30:00 STANISLAW [id number] [facility] 2019-12-12 2019-12-12 Outpatient R CORINNE [facility] [id number] Univers 16:30:00 16:30:00 STANISLAW [facility] 2019-12-07 2019-12-07 Outpatient Anupama THOMPSON [facility] [id number] Univers 09:00:00 09:00:00 DORON diaz [facility] 2019-11-22 2019-11-22 Outpatient ERNST, [facility] [id number] [address] [place] [address] 00:00:00 00:00:00 SILVINA porras 2019-11-06 2019-11-06 Outpatient ANTOSH, [facility] [id number] [place] 00:00:00 00:00:[address] 2019-11-01 2019-11-01 Outpatient ANTOSH, [facility] [id number] [place] 00:00:00 00:00:00 SILV[address] 2019-10-30 2019-10-30 Outpatient GALAN, [facility] [id number] [place] 00:00:00 00:00:00 ABHIJIT [address] 2019-10-18 2019-10-18 Outpatient ANTOSH, [facility] [id number] [place] 00:00:00 00:00:00 SILVINA [address] 2019-10-02 2019-10-02 Outpatient ANTOSH, [facility] [id number] [place] 00:00:00 00:00:00 SILVINA [address] 2019-10-01 2019-10-01 Outpatient ANTOSH, [facility] [id number] [place] 00:00:00 00:00:00 SILVINA [address] 2019-09-19 2019-09-19 Outpatient ANTOSH, [facility] [id number] [place] 00:00:00 00:00:00 SILVINA [address] 2019-09-11 2019-09-11 [facility] [id number] Univers 10:30:00 10:30:00 STANISLAW [id number] [facility] 2019-09-11 2019-09-11 Outpatient Anupama [facility] [id number] Univers 10:30:00 10:30:00 STANISLAW [facility] 2019-09-10 2019-09-10 Outpatient GALAN, [facility] [id number] [place] 00:00:00 00:00:00 ABHIJIT [address] 2019-09-10 2019-09-10 Outpatient ANTOSH, [facility] [id number] [place] 00:00:00 00:00:00 SILVINA [address] 2019-09-10 2019-09-10 Outpatient ANTOSH, [facility] [id number] [place] 00:00:00 00:00:00 SILVINA [address] 2019-08-23 2019-08-23 Outpatient R ADRIENNE [facility] [id number] Univers 16:15:00 10:31:44 LILY isaac [facility] 2019-08-15 2019-08-15 Outpatient R ADRIENNE [facility] [id number] Univers 09:15:00 09:44:35 LILY [facility] 2019-07-07 2019-07-07 Emergency X LAINE [facility] ERT [id number] Univers 10:13:53 13:06:00 KATELYNASHUTOSH isaac [facility] 2010-08-05 2010-08-07 Inpatient OUTP Kit Lopez HCATO SURG [id number] [facility] 16:20:00 14:00:00 [id number] [facility] Results Test Description [...] INDICATED, ALL TESTING PERFORM ED ATCLINICAL PATHOLOGY [employer] [address] [place] [address] LABORATORY DIRE CTOR: NOAH DICKENS M.D. CLIA NUMBER [id number] [place]. [id number] HIV 1/2 4TH GEN, RFLX [id number] 03:26:41 Test Item Value Reference Range Interpretation Comments HIV 1/2 4TH GEN, RFLX CONF (test NON-REACTIVE NON-REACTIVE code = 3514) ALBUMIN, URINE, [id number] 02:46:02 Test Item Value Reference Range Interpretation Comments ALBUMIN, URINE, RANDOM (test code 10.2 MG/DL NOT ESTAB = 09692) LIPID [id number] 02:15:07 Test Item Value Reference Range Interpretation [...] MOREINFORMATION , SEE CLIENT ANNOUNCE MENT AT [email or web address] CalcLDL-C RISK RATIO LDL/HDL (NOTE) RATIO <3.22 (test code = 2238) UNABLE TO CALCULATE COMPREHENSIVE METABOLIC [id number] 02:15:07 Test Item Value Reference Range Interpretation Comments GLUCOSE (test code = 349 MG/DL 70-99 H 2216) BUN (test code = 17 MG/DL 6-20 2207) CREATININE (test 0.80 MG/DL 0.60-1.30 code = 2214) eGFR (2020 CKD-EPI) 94 ML/MIN/1.73 >60 (test code = 31148) CALC BUN/CREAT (test 21 RATIO 6-28 code = 2235) SODIUM (test code = 137 MEQ/L 739-110 7922) POTASSIUM (test code 4.2 MEQ/L 3.5-5.4 = [...] code = 39 U/L 5-40 2218) HEMOGLOBIN [id number] 04:43:57 Test Item Value Reference Range Interpretation Comments HEMOGLOBIN A1c (test 11.5 % 4.2-5.6 H NEPALESE DIABETES code = 21489) ASSOCIATION IDELINES FOR HGB A1C: PREDIABETES/INC REASED [...] TESTI NG OR LABORATORY CONS ULTATION. CULTURE, [id number] 11:34:56SPECIMEN NUMBER: [id number] CULTURE, URINE SPECIMEN NUMBER: [id number] SPECIMEN COMMENT: URINE SOURCE: URINE REPORT STATUS: FINAL FINAL REPORT: 10/25/2021 10- 50,000 CFU/ML UROGENITAL NORMA PRESENT NO COMMON PATHOGENS VAGINAL PATHOGENS DNA [id number] 11:55:20 Test Item Value Reference Range Interpretation Comments ANDIE SPECIES (test NEGATIVE NEGATIVE code = ) G. VAGINALIS (test NEGATIVE NEGATIVE code = ) T. VAGINALIS (test NEGATIVE NEGATIVE UN LESS OTHERWISE code = ) INDICATED, ALL TESTING PERFORMED ATCLI NICAL PATHOLOGY LABOR ATORIES, [facility]. [address] [place] [address] 78 4 LABORATORY DIR JENNIFER: NOAH TODD M.D. CLIA NUMBER [id number] CAP ACCREDITATION N O. [id number] POCT GLUCOSE (AUTOMATED)2021-10-17 01:51:54 Test Item Value Reference Range Interpretation Comments POCT GLU (test code = 8070701828) 365 mg/dL 70-110 H Lab Interpretation (test code = Abnormal 44411-2) [facility]2021-10-17 00:46:51 Test Item Value Reference Range Interpretation Comments POCT GLU (test code = 3778696557) 435 mg/dL 70-110 H Lab Interpretation (test code = Abnormal 61911-8) [facility] GLU[facility]SE(AGE >30DAYS)2021-10-17 00:41:00 Test Item Value Reference Range Interpretation Comments POCT Glu (age>30days) (test code = 435 mg/dL 70-110 A 3342) Lab Interpretation (test code = Abnormal 04879-2) [id number] 23:40:42 Test Item Value Reference Interpretation Comments Range TROPONIN I (test 0.001 ng/mL See_Comment [Automated code = 5647683750) message] The system which generated this result [...] biotin. Lab Interpretation Normal (test code = 00411-9) [facility] [id number] 23:37:40 Test Item Value Reference Range Interpretation Comments NT-proBNP (test code 20 pg/mL See_Comment [Autom ated = 6924058399) message] The system which generated this result transmitted reference range : <=125. The reference range was not used to interpret this result as normal/abnormal . CALVIN (test code = CALVIN) Biotin has been reported to cause a negative bias, interpret results relative to patient's use of biotin. Lab Interpretation Normal (test code = 27121-8) [facility]. METABOLIC PANEL (54630)2021-10-16 23:29:18 Test Item Value Reference Range Interpretation Comments NA (test code = 134 mmol/L 135-145 L 5588352575) K (test code = 4.4 mmol/L 3.5-5.0 2927953810) CL (test code = 97 mmol/L 98-108 L 0546008675) CO2 TOTAL (test code = 23 mmol/L 23-31 7093395373) AGAP (test code = 2-16 5351906876) BUN (test code = 21 mg/dL 7-23 7180185118) GLUCOSE (test code = 431 mg/dL 70-110 H 5568796568) CREATININE (test code = 0.88 mg/dL 0.50-1.04 0762205907) TOTAL BILI (test code = 0.5 mg/dL 0.1-1.9 7842315071) CALCIUM (test code = 9.2 mg/dL 8.6-10.6 0834338645) T PROTEIN (test code = 7.4 g/dL 6.3-8.2 7631897877) ALBUMIN (test code = 4.7 g/dL 3.5-5.0 3982685471) ALK PHOS (test code = 52 U/L 34-122 0793568965) ALTv (test code = 30 U/L 5-35 1742-6) AST(SGOT) (test code = 25 U/L 13-40 2778480200) eGFR (test code = mL/min/1.73m2 0208803647) CALVIN (test code = CALVIN) Association of [...] tests). Lab Interpretation Abnormal (test code = 83267-4) [facility] WITH [id number] 23:20:10 Test Item Value Reference Range Interpretation Comments WBC (test code = See_Comment [Automated 6616-2) message] The sy stem which generated this result transmitted reference range : 4.30 - 11.10 10*3/?L. The reference range was not used to interpret this result as normal/abnormal . RBC (test code = See_Comment [Automated 102-8) message] The sy stem which generated this [...] RDW-SD (test code = 40.5 fL 39.0-49.9 64194-4) RDW-CV (test code = 13.5 % 12.0-15.5 788-0) PLT (test code = See_Comment [Automated 777-3) message] The sy stem which generated this result transmitted reference range : 166 - 358 10*3/ ?L. The reference r doretha was not used to interpret this result as normal/abnormal . MPV (test code = 9.6 fL 9.5-12.9 14288-3) NRBC/100 WBC (test See_Comment [Automat ed code = 7046355302) message] The system which generated this result transmitted reference range : 0.0 - 10.0 /100 WBCs. The refer ence range was not u sed to interpret th is result as normal/abnormal . NRBC x10^3 (test code <0.01 See_Comment [Auto mated = 8952275404) message] The s ystem which generated this result transmitted reference range : 10*3/?L. The reference range was not used to interpret this result as normal/abnormal . GRAN MAT (NEUT) % 43.2 % (test code = 770-8) IMM GRAN % (test code 0.70 % = 9539015121) LYMPH % (test code = 42.8 % 736-9) MONO % (test code = 9.2 % 5905-5) EOS % (test code = 3.0 % 713-8) BASO % (test code = 1.1 % 706-2) GRAN MAT x10^3(ANC) 3.15 10*3/uL 1.88-7.09 (test code = 0660894571) IMM GRAN x10^3 (test 0.05 10*3/uL 0.00-0.06 code = 3181747339) LYMPH x10^3 (test code 3.12 10*3/uL 1.32-3.29 = 731-0) MONO x10^3 (test code 0.67 10*3/uL 0.33-0.92 = 742-7) EOS x10^3 (test code = 0.22 10*3/uL 0.03-0.39 711-2) BASO x10^3 (test code 0.08 10*3/uL 0.01-0.07 H = 704-7) Lab Interpretation Abnormal (test code = 70952-2) [facility] Center[facility] Whole [id number] 23:09:32 Test Item Value Reference Range Interpretation Comments LACTIC ACID (test code = 1.94 mmol/L 0.50-2.20 6614902056) Lab Interpretation (test code = Normal 12291-5) [facility]PO[facility] [id number] 22:34:00 Test Item Value Reference Range Interpretation Comments POCT PREG (test code = 1605) Negative On board controls acceptable with Present C Line (test code = 3574) POCT PREG LOT # (test code = 3575) [id number] POCT PREG TEST DATE (test 2023-04-09 code = 3576) Lab Interpretation (test code = Normal 09691-2) [facility] CenterCULTURE, [id number] 08:52:36SPECIMEN NUMBER: [id number] CULTURE, URINE SPECIMEN NUMBER: [id number] SPECIMEN COMMENT: URINE SOURCE: URINE REPORT STATUS: FINAL FINAL REPORT: 10/12/2021 >100,000 CFU/ML UROGENITAL NORMA PRESENT NO COMMON PATHOGENS UNLESS OTHERWISE INDICATED, ALL TESTING PERFORMED [facility] [address] [place] [address] WINDOWS SERVER SPECIALIST: NOAH DICKENS M.D. CLIA NUMBER [id number] [place]. [id number] CULTURE, NO SENS 2021-10-08 09:46:36SPECIMEN NUMBER: [id number] URINE CULTURE, NO SENS SPECIMEN NUMBER: [id number] SPECIMEN COMMENT: URINE SOURCE: URINE REPORT STATUS: FINAL FINAL REPORT: 10/08/2021 50-100,000 CFU/ML UROGENITAL NORMA PRESENT NO COMMON PATHOGENSCBC W/AUTO DIFF WITH [id number] 07:54:02 Test Item Value Reference Range Interpretation [...] RBCS 0.00 K/UL 0.00-0.11 (test code = 94394) COMPREHENSIVE METABOLIC [id number] 05:34:02 Test Item Value Reference Range Interpretation Comments GLUCOSE (test code = 108 MG/DL 70-99 H 2216) BUN (test code = 17 MG/DL 6-20 2207) CREATININE (test 0.84 MG/DL 0.60-1.30 code = 221) eGFR (2020 CKD-EPI) 88 >60 (test code = 81918) ML/MIN/1.73 CALC BUN/CREAT (test 20 RATIO 6-28 code = 2235) SODIUM (test code = 141 MEQ/L 689-059 1924) POTASSIUM (test code 4.0 MEQ/L 3.5-5.4 = [...] [Automated message] (test code = 2206) The [employer] which generated this result transmitted ref erence range: <=1.2. T he reference range was not used to int erpret this result as normal/abnormal . ALKALINE PHOSPHATASE 51 U/L 40-113 (test code = 2203) AST (test code = 22 U/L 9-40 2217) ALT (test code = 28 U/L 5-40 UNLE SS 2218) OTHERWISE INDIC ATED, ALL TESTING PER FORMED [facility] [address] [place] [address] LABORATORY DIRE CTOR: NOAH TODD M.D. CLIA NUMBER [id number] CAP ACCREDITATION N O. [id number] COMP. METABOLIC PANEL (18922)2021-09-22 15:36:43 Test Item Value Reference Range Interpretation Comments NA (test code = 133 mmol/L 135-145 L 1647941374) K (test code = 4.8 mmol/L 3.5-5.0 4363180510) CL (test code = 96 mmol/L 98-108 L 2204892677) CO2 TOTAL (test code = 21 mmol/L 23-31 L 1968733172) AGAP (test code = 2-16 9475258853) BUN (test code = 30 mg/dL 7-23 H 4437656126) GLUCOSE (test code = 405 mg/dL 70-110 H 5621939098) CREATININE (test code = 0.74 mg/dL 0.50-1.04 1515680377) TOTAL BILI (test code = 0.6 mg/dL 0.1-1.1 7120333509) CALCIUM (test code = 9.7 mg/dL 8.6-10.6 6927774829) T PROTEIN (test code = 7.9 g/dL 6.3-8.2 4568145772) ALBUMIN (test code = 4.9 g/dL 3.5-5.0 0006080316) ALK PHOS (test code = 66 U/L 34-122 6769005587) ALTv (test code = 37 U/L 5-35 H 2-6) AST(SGOT) (test code = 31 U/L 13-40 7202652632) eGFR (test code = mL/min/1.73m2 5026988345) CALVIN (test code = CALVIN) Association of [...] tests). Lab Interpretation Abnormal (test code = 49181-5) [facility] WITH [id number] 15:26:02 Test Item Value Reference Range Interpretation Comments WBC (test code = See_Comment [Automated 4990-2) message] The sy stem which generated this [...] (test code = 38.2 fL 39.0-49.9 L 90316-8) RDW-CV (test code = 12.9 % 12.0-15.5 788-0) PLT (test code = See_Comment [Automated 777-3) message] The sy stem which generated this result transmitted reference range : 166 - 358 10*3/ ?L. The reference r doretha was not used to interpret this result as normal/abnormal . MPV (test code = 9.8 fL 9.5-12.9 23302-0) NRBC/100 WBC (test See_Comment [Automat ed code = 7876520924) message] The system which generated this result transmitted reference range : 0.0 - 10.0 /100 WBCs. The refer ence range was not u sed to interpret th is result as normal/abnormal . NRBC x10^3 (test code <0.01 See_Comment [Auto mated = 9530845014) message] The s ystem which generated this result transmitted reference range : 10*3/?L. The reference range was not used to interpret this result as normal/abnormal . GRAN MAT (NEUT) % 50.6 % (test code = 770-8) IMM GRAN % (test code 0.80 % = 1123013176) LYMPH % (test code = 37.0 % 736-9) MONO % (test code = 8.5 % 5905-5) EOS % (test code = 2.2 % 713-8) BASO % (test code = 0.9 % 706-2) GRAN MAT x10^3(ANC) 3.86 10*3/uL 1.88-7.09 (test code = 0133018683) IMM GRAN x10^3 (test 0.06 10*3/uL 0.00-0.06 code = 7579595407) LYMPH x10^3 (test code 2.83 10*3/uL 1.32-3.29 = 731-0) MONO x10^3 (test code 0.65 10*3/uL 0.33-0.92 = 742-7) EOS x10^3 (test code = 0.17 10*3/uL 0.03-0.39 711-2) BASO x10^3 (test code 0.07 10*3/uL 0.01-0.07 = 704-7) Lab Interpretation Abnormal (test code = 89597-5) [facility] [id number] 15:18:00 Test Item Value Reference Range Interpretation Comments POCT PREG (test code = 1605) negative On board controls acceptable with present C Line (test code = 3574) POCT PREG LOT # (test code = 3575) [id number] POCT PREG TEST DATE (test 09/07/2022 code = 3576) Lab Interpretation (test code = Normal 95270-1) [facility] CenterGLUBED2022-01-21 08:37:00 Test Item Value Reference Range Interpretation Comments GLUBED (test code = GLUBED) 260 mg/dL 60-125 H [id number] 06:42:00 Test Item Value Reference Range Interpretation Comments GLUBED (test code = GLUBED) 265 mg/dL 60-125 H COVID 19 Asymptomatic IH [id number] 17:24:00 Test Item Value Reference Range Interpretation Comments COVID 19 Asymptomatic IH AG (test NEGATIVE NEGATIVE code = COVNONPUIAG) COMPREHENSIVE METABOLIC [id number] 05:38:33 Test Item Value Reference Range Interpretation Comments GLUCOSE (test code = 411 MG/DL 70-99 H 2216) BUN (test code = 24 MG/DL 6-20 H 2207) CREATININE (test 1.13 MG/DL 0.60-1.30 code = 2214) eGFR (2020 CKD-EPI) 62 ML/MIN/1.73 >60 (test code = 85578) CALC BUN/CREAT (test 21 RATIO 6-28 code = 2235) SODIUM (test code = 136 MEQ/L 139-631 9570) POTASSIUM (test code 5.0 MEQ/L 3.5-5.4 = [...] = 49 U/L 5-40 H 2218) LIPID [id number] 05:38:33 Test Item Value Reference Range Interpretation [...] MOREINFORMATION , SEE CLIENT ANNOUNCE MENT AT [email or web address] CalcLDL-C RISK RATIO LDL/HDL 2.79 RATIO <3.22 (test code = 2238) UNABLE TO CALCULATE UNLESS OTHERW ISE INDICATED, ALL TESTING PERFORMED [facility] PATHOLOGY [employer], [employer]. [address] [place] [address] 4 LABORATORY DI GUEVARA: George SONG [id number] CAP ACCREDITATION N O. [id number] HEMOGLOBIN [id number] 03:55:33 Test Item Value Reference Range Interpretation Comments HEMOGLOBIN A1c (test 11.9 % 4.2-5.6 H NEPALESE DIABETES code = 44110) ASSOCIATION IDELINES FOR HGB A1C: PREDIABETES/INC REASED [...] TESTI NG OR LABORATORY CONS ULTATION. CREATINE [id number] 13:35:13 Test Item Value Reference Range Interpretation Comments CK (test code = 6792446484) 71 U/L 33-194 Lab Interpretation (test code = Normal 32161-8) [facility] GLUCOSE (AUTOMATED)2021-06-18 13:07:35 Test Item Value Reference Range Interpretation Comments POCT GLU (test code = 8723908472) 351 mg/dL 70-110 H Lab Interpretation (test code = Abnormal 24932-7) [facility] GLUCOSE(AGE >30DAYS)2021-06-18 13:04:00 Test Item Value Reference Range Interpretation Comments POCT Glu (age>30days) (test code = 351 mg/dL 70-110 A 3342) Lab Interpretation (test code = Abnormal 75541-0) [facility]. Metabolic Panel (35997)2021-06-18 11:14:20 Test Item Value Reference Range Interpretation Comments NA (test code = 134 mmol/L 135-145 L 2780942199) K (test code = 4.6 mmol/L 3.5-5.0 9778535628) CL (test code = 103 mmol/L 98-108 7926703147) CO2 TOTAL (test code = 18 mmol/L 23-31 L 4824934715) AGAP (test code = 2-16 2173653729) BUN (test code = 30 mg/dL 7-23 H 4495639069) GLUCOSE (test code = 390 mg/dL 70-110 H 2290266908) CREATININE (test code = 0.93 mg/dL 0.50-1.04 4261507862) TOTAL BILI (test code = 0.4 mg/dL 0.1-1.1 0391713088) CALCIUM (test code = 10.0 mg/dL 8.6-10.6 9517875732) T PROTEIN (test code = 7.6 g/dL 6.3-8.2 3910411407) ALBUMIN (test code = 4.5 g/dL 3.5-5.0 4092194837) ALK PHOS (test code = 51 U/L 34-122 9007345891) ALTv (test code = 34 U/L 5-35 1742-6) AST(SGOT) (test code = 26 U/L 13-40 3638170340) eGFR (test code = mL/min/1.73m2 5328925606) CALVIN (test code = CALVIN) Association of [...] tests). Lab Interpretation Abnormal (test code = 77812-2) [facility] CenterPOAZ [id number] 11:06:00 Test Item Value Reference Range Interpretation Comments POCT PREG (test code = 1605) neg On board controls acceptable with yes C Line (test code = 3574) POCT PREG LOT # (test code = 3575) [id number] POCT PREG TEST DATE (test 08/10/2022 code = 3576) Lab Interpretation (test code = Normal 42931-6) [facility] with [id number] 11:00:39 Test Item Value Reference Range Interpretation Comments WBC (test code = See_Comment [Automated 5512-2) message] The sy stem which generated this result transmitted reference range : 4.30 - 11.10 10*3/?L. The reference range was not used to interpret this result as normal/abnormal . RBC (test code = See_Comment [Automated 102-8) message] The sy stem which generated this [...] RDW-SD (test code = 40.1 fL 39.0-49.9 91265-7) RDW-CV (test code = 13.2 % 12.0-15.5 788-0) PLT (test code = See_Comment [Automated 777-3) message] The sy stem which generated this result transmitted reference range : 166 - 358 10*3/ ?L. The reference r doretha was not used to interpret this result as normal/abnormal . MPV (test code = 9.5 fL 9.5-12.9 04458-5) NRBC/100 WBC (test See_Comment [Automat ed code = 8904769287) message] The system which generated this result transmitted reference range : 0.0 - 10.0 /100 WBCs. The refer ence range was not u sed to interpret th is result as normal/abnormal . NRBC x10^3 (test code <0.01 See_Comment [Auto mated = 4755925384) message] The s ystem which generated this result transmitted reference range : 10*3/?L. The reference range was not used to interpret this result as normal/abnormal . GRAN MAT (NEUT) % 43.7 % (test code = 770-8) IMM GRAN % (test code 0.70 % = 6190097477) LYMPH % (test code = 41.9 % 736-9) MONO % (test code = 8.8 % 5905-5) EOS % (test code = 3.6 % 713-8) BASO % (test code = 1.3 % 706-2) GRAN MAT x10^3(ANC) 2.68 10*3/uL 1.88-7.09 (test code = 6045302734) IMM GRAN x10^3 (test 0.04 10*3/uL 0.00-0.06 code = 7961331331) LYMPH x10^3 (test code 2.57 10*3/uL 1.32-3.29 = 731-0) MONO x10^3 (test code 0.54 10*3/uL 0.33-0.92 = 742-7) EOS x10^3 (test code = 0.22 10*3/uL 0.03-0.39 711-2) BASO x10^3 (test code 0.08 10*3/uL 0.01-0.07 H = 704-7) Lab Interpretation Abnormal (test code = 84833-1) [facility]REM W/O CONT [id number] 08:37:00 [facility] : 1980 Sex: F Patient Name: MARGE FRANCO Unit No: [id number] EXAMS: CPT CODE: [id number] CT UP EXTREM W/O CONT OT07404 CT SCAN LEFT WRIST WITH RECONSTRUCTION DIAGNOSIS: [...] with ACR practice standards and adherence to sand screener operator's recommendations. INDICATION: LEFT WRIST SPRAIN, POSSIBLE SCAPHOID FRACTURE COMPARISON: None. COMMENT: Findings are as described above. at 0837 Reported and signed by: America Schuler MD CC: Bebeto Quiroga MD Technologist: KAVEH WYMAN MRI CTDI:DLP: Trnscrpt: 08/11/2020 (0837) [facility]el[facility] NAME: MARGE FRANCO [address] [facility] PHYS: Bebeto Valiente MD : 1980 AGE: 40 SEX: F [place] [address] LOC: Y.RAD PHONE #: [phone] EXAM DATE: 08/08/2020 STATUS: DEP CLI FAX #: [phone] RAD #: D/C DT PAGE 1 Signed Report Patient Name: MARGE FRANCO Unit No: [id number] EXAMS: CPT CODE: [id number] CT UP EXTREM W/[place] [address] <Continued> Orig Print D/T: S: 08/11/2020 (0840) [facility] NAME: MARGE FRANCO [address] [place] [address] PHYS: Bebeto Valiente MD : 1980 AGE: 40 SEX: F [place], [place] [address]JDYU NO: [id number] LOC: Y.RAD PHONE #: [phone] EXAM DATE: 08/08/2020 STATUS: DEP CLI FAX #: [phone] RAD #: D/C DT PAGE 2 Signed Report- XR FOREARM 2 VIEWS [id number] 09:10:00 [facility] 1980 Sex: F Patient Name: MARGE FRANCO Unit No: [id number] EXAMS: CPT CODE: [id number] XR [place] [address] [place] [address] Left forearm and wrist 4 views COMMENT: There isno evidence for fracture or subluxation. No focal bony lesions are seen. at 0910 Reported and signed by: Prasad Marina MD CC: Rafy Ferguson MD Technologist: Marie Johnson(R) Transcribed D/ (0910) Renee [facility] NAME: MARGE FRANCO [address] [place] [address] PHYS: HAMST. - Rafy Ferguson In : 1980 AGE: 40 SEX: F [place] [address] LOC: TEOFILO PHONE #: [phone] EXAM DATE: 08/02/2020 STATUS: DEP ER FAX #: [phone] RAD #: D/C DT PAGE 1 Signed Report Patient Name: MARGE FRANCO Unit No: [id number] EXAMS: CPT CODE: [id number] XR FOREARM [address] [place] [address] <Continued> Orig Print D/T: S: 08/04/2020 (0914) [facility] [address] [place] [address] PHYS: HAMST.Rell - SanjeevMarcel brownen In : 1980 AGE: 40 SEX: F [place] [address] LOC: TEOFILO PHONE #: [phone] EXAM DATE: 08/02/2020 STATUS: DEP ER FAX #: [phone] RAD #: D/C DT PAGE 2 Signed Report- XR ANKLE 3 + V [id number] 07:19:00 Patient Name: Marge Franco Unit No: [id number] EXAMS: CPT CODE: [id number] XR ANKLE 3 + V RT 16867 Right ankle 3 views COMMENT: There is [...] SAMANTHA MORALES, RT(R) Transcribed D/ (718) MickeyL [facility] NAME: Marge Franco [address] [place] [address] PHYS: Barry Cardenas DO : 1980 AGE: 40 SEX: F [place] [address] LOC: TEOFILO PHONE #: [phone] EXAM DATE: 02/13/2020 STATUS: DEP ER FAX #: [phone] RAD #: D/C DT PAGE 1 Signed Report Patient Name: Marge Franco Unit No: [id number] EXAMS: CPT CODE: [id number] XR ANKLE 3 + V RT 490[address] <Continued> Orig Print D/T: S: 02/14/2020 (07) [facility] NAME: Marge Franco [address] [place] [address] PHYS: Barry Cardenas DO :1980 AGE: 40 SEX: F [place] [address] LOC: TEOFILO PHONE #: [phone] EXAM DATE: 02/13/2020 STATUS: DEP ER FAX #: [phone] RAD #: D/C DT PAGE 2 Signed Report- XR FOOT 2 VIEWS [id number] 07:19:00 Patient Name: Marge Franco Unit No: [id number] EXAMS: CPT CODE: [id number] XR FO[place] [address] [place] [address] Right ankle 3 views COMMENT: There is [...] SAMANTHA MORALES, RT(R) Transcribed D/ (718) tCOLTONL [facility] NAME: Marge Franco [address] [place] [address] PHYS: Barry Cardenas DO : 1980 AGE: 40 SEX: F [place] [address] LOC: TEOFILO PHONE #: [phone] EXAM DATE: 02/13/2020 STATUS: DEP ER FAX #: [phone] RAD #: D/C DT PAGE 1 Signed Report Patient Name: Marge Franco Unit No: [id number] EXAMS: CPT CODE: [id number] XR FO[place] [address] [place] [address] <Continued> Orig Print D/T: S: 02/14/2020 (07) [facility] NAME: Marge Franco [address] [place] [address] PHYS: Barry Cardenas DO :1980 AGE: 40 SEX: F [place] [address] LOC: TEOFILO PHONE #: [phone] EXAM DATE: 02/13/2020 STATUS: DEP ER FAX #: [phone] RAD #: D/C DT PAGE 2 Signed [id number] 11:17:00 Test Item Value Reference Range Interpretation Comments GLUBED (test code = GLUBED) 119 mg/dL 60-125 N [id number] 08:15:00 Test Item Value Reference Range Interpretation Comments GLUBED (test code = GLUBED) 117 mg/dL 60-125 N Novel Coronavirus 2019 [id number] 17:12:00 Test Item Value Reference Range Interpretation Comments Novel Coronavirus 2019 Inhouse (test Negative Negative code = COVNONPUI) Novel Coronavirus 2019 [id number] 17:12:00 Test Item Value Reference Range Interpretation Comments Novel Coronavirus 2019 Inhouse (test Negative Negative code = COVNONPUI) CBC W/AUTO [id number] 20:19:00 Test Item Value Reference Range Interpretation [...] 0-0 N code = NRBC) BASIC METABOLIC [id number] 19:54:00 Test Item Value Reference Range Interpretation [...] RATE (test code = GFR) mL/mi n/1.73 m6Bkbxkzods Range:Healthy A dults >90 mL/min/1.73 m2 For [...] CA) - CT LOWER EXTRM W/O C [id number] 14:57:00 Patient Name: MARGE FRANCO Unit No: [id number] EXAMS: CPT CODE: [id number] [place] L[place] EXTRM W/[place] [address] CT SCAN RIGHT ANKLE WITH RECONSTRUCTION DIAGNOSIS: [...] with ACR practice standards and adherence to sand screener operator's recommendations. INDICATION: RIGHT ANKLE PAIN COMPARISON: None. COMMENT: Findings are as described above. at 1457 Reported and signed by: America Schuler MD CC: Elbert Wilson MD Technologist: Shaan Nassar,RT(R) CTDI: DLP: Trnscrpt: 01/04/2020 (8963) tSCARGVG [facility] NAME: MARGE FRANCO [address] [place] [address] PHYS: Elbert Rodrigues MD : 1980 AGE: 39 SEX: F [place] [address] LOC: Y.RAD PHONE #: [phone] EXAM DATE: 01/04/2020 STATUS: REG CLI FAX #: [phone] RAD #: D/C DT PAGE 1 Signed Report Patient Name: MARGE FRANCO Unit No: [id number] EXAMS: CPT CODE: [id number] CT LOWER EXTRM W/[place] [address] <Continued> Orig Print D/T: S: 01/04/2020 (1500) [facility] NAME: JOANN FRANCOTINLAURA [address] [place] [address] PHYS: Elbert Rodrigues MD : 1980 AGE: 39 SEX: F [place] [address] LOC: Y.RAD PHONE #: [phone] EXAM DATE: 01/04/2020 STATUS: REG CLI FAX #: [phone] RAD #: D/C DT PAGE 2 Signed Report"
[2022-01-04] MEDS ORDERED: NA CHLORIDE 0.9% 500 ML ONE ×2 (00:32→01:59)
[2022-01-04] MEDS ORDERED: ONDANSETRON 4 MG/2 ML VIAL ONE ×2 (00:32→09:58)
[2022-01-04] MEDS ORDERED: MORPHINE 2 MG/ML SYR ONE ×3 (00:32→14:04)
[2022-01-04 00:36] LABS: Protime INR 1.03
[2022-01-04 00:43] LABS: Absolute Lymphocytes (CBC) 3.4 K/uL (0.7-4.9); Hematocrit 37.3 % (36.0-45.0); Lymphocytes % 41.2 % (15.3-44.8); MCV 82.1 fL (80-100); MPV 7.4 fL (7.6-11.3); RBC Red Blood Cell Count 4.55 M/uL (3.86-4.86)
[2022-01-04 00:59] LABS: BUN Blood Urea Nitrogen 17 mg/dL (7-18); Bicarbonate 23 mmol/L (21-32); Glomerular Filtration Rate 68 ml/min (=/>90); Glucose Level 268 mg/dL (74-106); NT PRO-BNP 18 pg/mL (<125); Potassium 3.9 mmol/L (3.5-5.1); Sodium Level 134 mmol/L (136-145)
[2022-01-04 01:01] LABS: Troponin High Sensitivity < 3.0 pg/mL (<58.9)
[2022-01-04 03:28] LABS: Urine Blood Negative (Negative); Urine Glucose 2+ (Negative); Urine Protein 1+ (Negative); Urine Specific Gravity 1.025 (1.005-1.030); Urine pH 5.5 (5.0-7.0)
[2022-01-04] MEDS ORDERED: PROMETHAZINE INJ 25 MG/ML AMP ONE ×3 (03:54→14:04)
[2022-01-04 03:59] LABS: Urine Specific Gravity/Preg 1.025 (1.005-1.030)
--- NOTE | 2022-01-04 06:53 | EDPHYS ---
Physician Documentation [facility] Name: Valentina Franco Age: 41 yrs Sex: Female : 1980 Arrival Date: 01/03/2022 Time: 22:51 Bed 7 Private MD: ED Physician Edilberto Casillas HPI: 01/04 00:24 This 41 yrs old Female presents to ER via Ambulatory with complaints of Chest mh7 Pain > 30 y/o, Numbness Of Face. 00:24 The patient or guardian reports chest pain that is located primarily in the anterior mh7 chest wall, left. Onset: yesterday. The pain does not radiate. Associated signs and symptoms: Pertinent positives: nausea, palpitations, Pertinent negatives: abdominal pain, cough, diaphoresis, dizziness, headache, lower extremity pain, lower extremity swelling, lightheadedness, near syncope, recent travel, shortness of breath, syncope, vomiting. The chest pain is described as stabbing. Duration: The patient or guardian reports multiple episodes, that are intermittent, that wax and wane, with no pattern. Modifying factors: The symptoms are alleviated by nothing. the symptoms are aggravated by nothing. Severity of pain: At its worst the pain was moderate yesterday, in the emergency department the pain has improved moderately. BACKFILLER: 01/03 23:52 LMP 10/16/2021 vc1 Historical: - Allergies: 23:50 No Known Allergies; vc1 - Home Meds: 23:50 atorvastatin 80 mg Oral tab 1 tab once daily [Active]; fenofibrate micronized 134 mg vc1 Oral cap once daily [Active]; glipizide 10 mg Oral tab 1 tab 2 times per day [Active]; lisinopril 10 mg Oral tab 1 tab once daily [Active]; metformin 1,000 mg Oral cp24 1 tab twice a day for Type 2 Diabetes Mellitus [Active]; Tresiba FlexTouch U-100 100 unit/mL (3 mL) subcutaneous inpn [Active]; Victoza 2-Christofer 0.6 mg/0.1 mL (18 mg/3 mL) subcutaneous pnij [Active]; - PMHx: 23:50 Anxiety; Depression; Diabetes - NIDDM; High Cholesterol; Pancreatitis; UTI; vc1 - PSHx: 23:50 section; Cholecystectomy; foot surgery; vc1 - Immunization history:: Adult Immunizations up to date. - Social history:: Smoking status: Patient denies any tobacco usage or history of. ROS: 01/04 00:24 Constitutional: Negative for fever, chills, and weight loss, Eyes: Negative for injury, mh7 pain, redness, and discharge, ENT: Negative for injury, pain, and discharge, Neck: Negative for injury, pain, and swelling, Respiratory: Negative for shortness of breath, cough, wheezing, and pleuritic chest pain, Back: Negative for injury and pain, : Negative for injury, bleeding, discharge, and swelling, MS/Extremity: Negative for injury and deformity, Skin: Negative for injury, rash, and discoloration. Psych: Negative for depression, anxiety, suicide ideation, homicidal ideation, and hallucinations, Allergy/Immunology: Negative for hives, rash, and allergies, Endocrine: Negative for neck swelling, polydipsia, polyuria, polyphagia, and marked weight changes, Hematologic/Lymphatic: Negative for swollen nodes, abnormal bleeding, and unusual bruising. Neuro: Positive for numbness, tingling, left face, Negative for weakness. Exam: 00:24 Constitutional: This is a well developed, well nourished patient who is awake, alert, mh7 and in no acute distress. Head/Face: Normocephalic, atraumatic. Eyes: Pupils equal round and reactive to light, extra-ocular motions intact. Lids and lashes normal. Conjunctiva and sclera are non-icteric and not injected. Cornea within normal limits. Periorbital areas with no swelling, redness, or edema. Neck: Trachea midline, no thyromegaly or masses palpated, and no cervical lymphadenopathy. Supple, full range of motion without nuchal rigidity, or vertebral point tenderness. No Meningismus. Chest/axilla: Normal chest wall appearance and motion. Nontender with no deformity. No lesions are appreciated. 00:24 Respiratory: Lungs have equal breath sounds bilaterally, clear to auscultation and 7 percussion. No rales, rhonchi or wheezes noted. No increased work of breathing, no retractions or nasal flaring. Abdomen/GI: Soft, non-tender, with normal bowel sounds. No distension or tympany. No guarding or rebound. No evidence of tenderness throughout. Back: No spinal tenderness. No costovertebral tenderness. Full range of motion. Skin: Warm, dry with normal turgor. Normal color with no rashes, no lesions, and no evidence of cellulitis. MS/ Extremity: Pulses equal, no cyanosis. Neurovascular intact. Full, normal range of motion. Neuro: Awake and alert, GCS 15, oriented to person, place, time, and situation. Cranial nerves II-XII grossly intact. Motor strength 5/5 in all extremities. Sensory grossly intact. Cerebellar exam normal. Normal gait. Psych: Awake, alert, with orientation to person, place and time. Behavior, mood, and affect are within normal limits. 00:24 Cardiovascular: Rate: tachycardic, Rhythm: regular, Pulses: no pulse deficits are appreciated, Heart sounds: normal, normal S1and S2, Edema: is not appreciated, JVD: is not appreciated. Vital Signs: 01/03 23:42 BP 115 / 61; Pulse 123; Resp 18; Temp 98.0(O); Pulse Ox 97% ; Weight 108.86 kg; Height vc1 5 ft. 4 in. (162.56 cm); Pain 9/10; 01/04 00:21 BP 109 / 78; Pulse 126; Resp 16 S; Pulse Ox 98% on R/A; as6 01:49 BP 100 / 78; Pulse 107; Resp 24 S; Pulse Ox 99% on R/A; as6 03:30 BP 106 / 60; Pulse 94; Resp 13 S; Pulse Ox 99% on R/A; as6 04:50 BP 119 / 62; Pulse 103; Resp 18 S; Pulse Ox 95% on R/A; as6 06:09 BP 119 / 62; Pulse 103; Resp 16 S; Pulse Ox 98% on R/A; as6 01/03 23:42 Body Mass Index 41.20 (108.86 kg, 162.56 cm) vc1 MDM: 06:15 Differential diagnosis: acute myocardial infarction, acute pericarditis, anxiety, mh7 coronary artery disease chest wall pain, congestive heart failure costochondritis, esophagitis, gastritis, gastroesophageal reflux disease (GERD), pericarditis, pleurisy, pneumonia, pneumothorax, pulmonary embolus. HEART Score: History: Slightly Suspicious (0), ECG: Non specific repolarization disturbance / LBTB / PM (1), Age: < or = 45 years (0), Risk Factors: 1 or 2 risk factors (1), [Hypercholesterolemia] [DM] Troponin: < or = 1 x Normal Limit (0), Total Score = 2. Data reviewed: vital signs, nurses notes, old medical records, lab test result(s), cardiac enzymes, CBC, electrolytes, EKG, radiologic studies, CT scan, plain films. Data interpreted: Pulse oximetry: on room air is 98 %. Interpretation: normal. Counseling: I had a detailed discussion with the patient and/or guardian regarding: the historical points, exam findings, and any diagnostic results supporting the discharge/admit diagnosis, lab results, radiology results. Response to treatment: the patient's symptoms have resolved after treatment, the patient's blood pressure is in an acceptable range, mental status has returned to baseline, the patient no longer shows bradycardia, the patient is not short of breath, the patient is not tachycardic, the patient's pain is gone, the patient's temperature has normalized, the patient is now symptom free, patient is well hydrated. 06:51 Counseling: I had a detailed discussion with the patient and/or guardian regarding: the [facility] need for further work-up and treatment in the hospital. 06:52 Patient medically screened. 01/03 23:59 Order name: Basic Metabolic Panel; Complete Time: 01/03 23:59 Order name: CBC with Diff; Complete Time: 01/03 23:59 Order name: PT-INR; Complete Time: 01/03 23:59 Order name: Troponin HS; Complete Time: 01/04 00:24 Order name: NT PRO-BNP; Complete Time: :01/04 00:27 Order name: TSH [facility] 01/04 00:31 Order name: Thyroid Stimulating Hormone; Complete Time: :01/04 00:33 Order name: COVID-19 SARS RT PCR (Document "Date of Onset" if Symptomatic); Complete Time: 01/04 00:33 Order name: Influenza Screen (a \\T\\ B); Complete Time: :47 01/04 03:29 Order name: Urine Dipstick-Ancillary; Complete Time: 03:36 01/04 03:29 Order name: Urine --Ancillary (enter results); Complete Time: 04:02 [facility] 01/04 08:31 Order name: Lipase [facility] 01/04 08:31 Order name: Liver (Hepatic) Function [facility] 01/03 23:59 Order name: XRAY Chest (1 view) [facility] 01/04 02:29 Order name: CT Chest For PE Angio [facility] 01/04 08:54 Order name: Urinalysis [facility] 01/04 08:54 Order name: CBC with Automated Diff [facility] 01/04 08:54 Order name: CBC with Automated Diff [facility] 01/04 08:54 Order name: Comprehensive Metabolic Panel [facility] 01/04 08:54 Order name: Comprehensive Metabolic Panel [facility] 01/04 08:54 Order name: Magnesium [facility] 01/04 08:54 Order name: Magnesium [facility] 01/04 08:54 Order name: Phosphorus [facility] 01/04 08:54 Order name: Phosphorus [facility] 01/04 08:57 Order name: Echo with Doppler [facility] 01/04 16:42 Order name: Glucose, Ancillary Testing [facility] 01/03 23:56 Order name: EKG - Nurse/Tech; Complete Time: 23:56 [facility] 01/03 23:56 Order name: EKG; Complete Time: 23:56 [facility] 01/03 23:59 Order name: Cardiac monitoring; Complete Time: 00:08 01/03 23:59 Order name: IV Saline Lock; Complete Time: 00:08 01/03 23:59 Order name: Labs collected and sent; Complete Time: 00:08 01/03 23:59 Order name: O2 Per Protocol; Complete Time: 00:08 01/03 23:59 Order name: O2 Sat Monitoring; Complete Time: 00:08 01/04 01:49 Order name: Urine Dipstick-Ancillary (obtain specimen); Complete Time: 03:52 [facility] 01/04 01:49 Order name: Urine Test (obtain specimen); Complete Time: 03:52 01/04 08:51 Order name: CONS Physician Consult [facility] 01/04 08:53 Order name: 60g Consistent Carbohydrate (ADA 1800/1999) EDMS Administered Medications: 00:32 Drug: morphine 2 mg Route: IVP; Infused Over: 4 mins; Site: right antecubital; as6 06:19 Follow up: Response: No adverse reaction as6 00:32 Drug: Zofran (Ondansetron) 4 mg Route: IVP; Site: right antecubital; as6 06:18 Follow up: Response: No adverse reaction as6 00:32 Drug: NS 0.9% 500 ml Route: IV; Rate: bolus; Site: right antecubital; as6 06:18 Follow up: Response: No adverse reaction; IV Status: Completed infusion; IV Intake: as6 500ml 02:12 Drug: NS 0.9% 500 ml Route: IV; Rate: bolus; Site: right antecubital; as6 06:18 Follow up: Response: No adverse reaction; IV Status: Completed infusion; IV Intake: as6 500ml 03:52 Drug: Phenergan (promethazine) 12.5 mg Route: IVP; Site: right antecubital; as6 06:18 Follow up: Response: No adverse reaction as6 Disposition Summary: 01/04/22 06:52 Hospitalization Ordered Hospitalization Status: Inpatient Admission 7 Provider: Ivan Linder [facility] Condition: Fair [facility] Problem: new mh7 Symptoms: have improved mh7 Bed/Room Type: Standard [facility] Location: Telemetry/MedSurg (Inpatient)(01/04/22 16:32) bd Room Assignment: [facility](01/04/22 16:32) bd Diagnosis - Chest pain, unspecified mh7 - Tachycardia, unspecified mh7 Forms: - Medication Reconciliation Form mh7 - SBAR form mh7 Signatures: Dispatcher [employer] EDMS Albertina Mccall Irene, PETE RN iw Milton Phillips, BURGLAR ALARM MECHANIC-C BURGLAR ALARM MECHANIC-Cla1 Elena William 2 Edilberto Casillas MD MD 7 Luis Gordon RN RN as6 Chelly Macias RN RN vc1 Corrections: (The following items were deleted from the chart) 00:21 00:19 PROBNP+C.LAB.BRZ ordered. EDMS EDMS 15:12 06:52 Telemetry/MedSurg (Inpatient) 7 iw 15:12 06:52 mh7 iw 16:32 15:12 [facility] ER HOLD iw bd 16:32 15:12 ERHOLD- iw bd
--- NOTE | 2022-01-04 06:53 | ER ---
Nurse's Notes [facility] Name: Valentina Franco Age: 41 yrs Sex: Female : 1980 Arrival Date: 01/03/2022 Time: 22:51 Bed 7 Private MD: Diagnosis: Chest pain, unspecified;Tachycardia, unspecified Presentation: 01/03 23:42 Chief complaint: Patient states: "My heartbeat has been super high all day, my left vc1 side of my face is numb and I am nauseous.". Coronavirus screen: Vaccine status: Patient reports receiving the 2nd dose of the covid vaccine. Moderna chills, At this time, the client does not indicate any symptoms associated with coronavirus-19. Ebola Screen: No symptoms or risks identified at this time. Initial Sepsis Screen: Does the patient meet any 2 criteria? No. Patient's initial sepsis screen is negative. Does the patient have a suspected source of infection? No. Patient's initial sepsis screen is negative. Risk Assessment: Do you want to hurt yourself or someone else? Patient reports no desire to harm self or others. Onset of symptoms was January 03, 2022. 23:42 Method Of Arrival: Ambulatory vc1 23:42 Acuity: CYNTHIA 3 vc1 Triage Assessment: 23:50 General: Appears in no apparent distress. uncomfortable, ill, Behavior is cooperative, vc1 anxious. Pain: Complains of pain in chest Pain radiates to right lateral aspect of neck Pain currently is 9 out of 10 on a pain scale. Also complains of nausea. Neuro: Level of Consciousness is awake, alert, obeys commands, Oriented to person, place, time, situation, Appropriate for age. Cardiovascular: Reports chest pain, diaphoresis, lightheadedness, nausea, palpitations, Chest pain is described as severe, quality is pressure, is located in right radiates to left neck. Respiratory: Airway is patent Respiratory effort is even, unlabored, Respiratory pattern is regular, symmetrical. GI: No deficits noted. : No deficits noted. Derm: Skin is flushed. Musculoskeletal: No deficits noted. 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 vc1 Historical: - Allergies: 23:50 No Known Allergies; vc1 - Home Meds: 23:50 atorvastatin 80 mg Oral tab 1 tab once daily [Active]; fenofibrate micronized 134 mg vc1 Oral cap once daily [Active]; glipizide 10 mg Oral tab 1 tab 2 times per day [Active]; lisinopril 10 mg Oral tab 1 tab once daily [Active]; metformin 1,000 mg Oral cp24 1 tab twice a day for Type 2 Diabetes Mellitus [Active]; Tresiba FlexTouch U-100 100 unit/mL (3 mL) subcutaneous inpn [Active]; Victoza 2-Christofer 0.6 mg/0.1 mL (18 mg/3 mL) subcutaneous pnij [Active]; - PMHx: 23:50 Anxiety; Depression; Diabetes - NIDDM; High Cholesterol; Pancreatitis; UTI; vc1 - PSHx: 23:50 section; Cholecystectomy; foot surgery; vc1 - Immunization history:: Adult Immunizations up to date. - Social history:: Smoking status: Patient denies any tobacco usage or history of. Screenin/27 00:13 Abuse screen: Denies threats or abuse. Denies injuries from another. Nutritional as6 screening: No deficits noted. Tuberculosis screening: No symptoms or risk factors identified. Fall Risk None identified. Assessment: 00:22 Reassessment: Patient appears in no apparent distress at this time. No changes from as6 previously documented assessment. Pain: Complains of pain in neck and right lateral aspect of neck and chest Pain began gradually. 04:50 Reassessment: Patient appears in no apparent distress at this time. as6 06:10 Reassessment: Patient appears in no apparent distress at this time. as6 Vital Signs: 01/03 23:42 BP 115 / 61; Pulse 123; Resp 18; Temp 98.0(O); Pulse Ox 97% ; Weight 108.86 kg; Height vc1 5 ft. 4 in. (162.56 cm); Pain 03/20; 01/04 00:21 BP 109 / 78; Pulse 126; Resp 16 S; Pulse Ox 98% on R/A; as6 01:49 BP 100 / 78; Pulse 107; Resp 24 S; Pulse Ox 99% on R/A; as6 03:30 BP 106 / 60; Pulse 94; Resp 13 S; Pulse Ox 99% on R/A; as6 04:50 BP 119 / 62; Pulse 103; Resp 18 S; Pulse Ox 95% on R/A; as6 06:09 BP 119 / 62; Pulse 103; Resp 16 S; Pulse Ox 98% on R/A; as6 01/03 23:42 Body Mass Index 41.20 (108.86 kg, 162.56 cm) vc1 ED Course: 01/03 22:51 Patient arrived in ED. bp1 23:50 Triage completed. vc1 23:52 Arm band placed on right wrist. vc1 23:55 Edilberto Casillas MD is Attending Physician. mh7 23:58 Luis Gordon, PETE is Primary Nurse. as6 01/04 00:13 Bed in low position. Call light in reach. Side rails up X2. Client placed on continuous as6 cardiac and pulse oximetry monitoring. NIBP monitoring applied. Warm blanket given. 00:13 Inserted saline lock: 18 gauge in right antecubital area, using aseptic technique. as6 Blood collected. Patient maintains SpO2 saturation greater than 95% on room air. 00:20 XRAY Chest (1 view) In Process Unspecified. EDMS 04:31 CT Chest For PE Angio In Process Unspecified. EDMS 06:51 Ivan Linder MD is Hospitalizing Provider. mh7 Administered Medications: 00:32 Drug: morphine 2 mg Route: IVP; Infused Over: 4 mins; Site: right antecubital; as6 06:19 Follow up: Response: No adverse reaction as6 00:32 Drug: Zofran (Ondansetron) 4 mg Route: IVP; Site: right antecubital; as6 06:18 Follow up: Response: No adverse reaction as6 00:32 Drug: NS 0.9% 500 ml Route: IV; Rate: bolus; Site: right antecubital; as6 06:18 Follow up: Response: No adverse reaction; IV Status: Completed infusion; IV Intake: as6 500ml 02:12 Drug: NS 0.9% 500 ml Route: IV; Rate: bolus; Site: right antecubital; as6 06:18 Follow up: Response: No adverse reaction; IV Status: Completed infusion; IV Intake: as6 500ml 03:52 Drug: Phenergan (promethazine) 12.5 mg Route: IVP; Site: right antecubital; as6 06:18 Follow up: Response: No adverse reaction as6 Medication: 06:18 VIS not applicable for this client. as6 Intake: 06:18 IV: 500ml; Total: 500ml. as6 06:18 IV: 500ml; Total: 1000ml. as6 Outcome: 06:52 Decision to Hospitalize by Provider. [facility] 17:34 Patient left the ED. 1 Signatures: Dispatcher [employer] EDMS Topher Astorga RN RN ll1 Ml Wang Maurice, MD MD 7 Luis Gordon RN RN as6 Chelly Macias RN RN 1
--- NOTE | 2022-01-04 08:57 | P.HP ---
Certification for Inpatient Patient admitted to: Observation With expected LOS: <2 Midnights Practitioner: I am a practitioner with admitting privileges, knowledge of patient current condition, hospital course, and medical plan of care. Services: Services provided to patient in accordance with Admission requirements found in Title 42 Section 412.3 of the Code of Federal Regulations Patient History Date of Service: 01/04/22 Reason for admission: palpitations, chest pain History of Present Illness: 41yo F, PMH: hypertriglyceridemia, insulin-dependent DM 2, h/o arrhythmia s/p ablation ~4yrs ago, prior episodes of pancreatitis Presents to ED with L chest pain, radiates to L shoulder. Has been feeling palpitations since yesterday morning. She woke up with palpitations / not feeling well. Apple watch alerted her of heart rate up to 140-150s for brief episodes. Associated with nausea/lightheadedness. Reports history ~3-4 years ago of 2 procedures where they "burned off something" in her heart due to rhythm issue, but unsure of what exactly. Denies any changes in medications. No recent illness. In the ED, she was noted to be sinus tachycardic, labs ok, anxious appearing. ED physician requested admission for chest pain rule out Allergies No Known Allergies Allergy (Verified 09/16/17 03:51) Home Medications: Metformin HCl 1,000 mg PO BID 09/16/17 Atorvastatin Calcium [Lipitor] 80 mg PO BEDTIME 12/07/21 Fenofibrate,Micronized [Fenofibrate] 1 tab PO DAILY 12/07/21 Glipizide [Glipizide ER] 10 mg PO BID 12/07/21 Liraglutide [Victoza 2-Christofer] 0.6 mg SQ 12/07/21 Lisinopril [Zestril] 10 mg PO DAILY 12/07/21 Insulin Degludec [Tresiba Flextouch U-100] 70 units SQ BID #15 ml 12/09/21 - Past Medical/Surgical History Diabetic: Yes -: DIABETIC TYPE II -: CHOLESTEROL -: DEPRESSION -: hernia repair -: heart ablation -: broke foot -: tonsillectomy -: KATTY -: X3 - Family History Mother -: Diabetes - Social History Smoking Status: Never smoker Alcohol use: No CD- Drugs: No Caffeine use: Yes Review of Systems 10-point ROS is otherwise unremarkable Physical Examination - Physical Exam General: Alert, In no apparent distress, Oriented x3 HEENT: EOMI, Sclerae nonicteric Neck: Supple, No LAD Respiratory: Clear to auscultation bilaterally Cardiovascular: No edema, Regular rate/rhythm (occasional sinus tach to 110) Gastrointestinal: Soft and benign, Tenderness (epigastrium (pt states chronic)) Musculoskeletal: No erythema, No tenderness Integumentary: No rashes, No significant lesion Neurological: Normal speech, Other (anxious appearing) - Studies Laboratory Data (last 24 hrs) 01/04/22 00:10: PT 11.3, INR 1.03 01/04/22 00:10: WBC 8.2, Hgb 12.6, Hct 37.3, Plt Count 240 01/04/22 00:10: Sodium 134 L, Potassium 3.9, BUN 17, Creatinine 1.04, Glucose 268 H Microbiology Data (last 24 hrs): 01/04/22 00:57 Nasopharnyx Influenza Type A Antigen Screen - Final 01/04/22 00:57 Nasopharnyx Influenza Type B Antigen Screen - Final Assessment and Plan - Advance Directives Does patient have a Living Will: No Does patient have a Durable POA for Healthcare: No Physician Review Additional Text: Problem List Palpitations / chest pain / shortness of breath IDDM2 h/o pancreatitis, chronic epigastric pain morbid obesity 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 cardiology consulted repeat EKG metoprolol; hold lisinopril due to BP Code: full Dispo: home ~tomorrow Time Spent Managing Pts Care (In Minutes): 75
[2022-01-04] MEDS: ENOXAPARIN 40 MG/0.4 ML SQ SCH (09:00)
[2022-01-04] MEDS: NA CHLORIDE 0.9% 1,000 ML IV SCH ×2 (09:00→19:18)
[2022-01-04 09:03] LABS: ALT/SGPT 49 U/L (12-78); AST/SGOT 22 U/L (15-37); Albumin 4.1 g/dL (3.4-5.0); Alkaline Phosphatase 54 U/L (45-117); Bilirubin Total 0.2 mg/dL (0.2-1.0); Lipase 192 U/L (73-393); Protein, Total 8.2 g/dL (6.4-8.2)
[2022-01-04 09:06] LABS: Bilirubin Direct < 0.1 mg/dL (0-0.2)
[2022-01-04] MEDS ORDERED: ENOXAPARIN 40 MG/0.4 ML SQ ONE (09:58)
[2022-01-04] MEDS: MORPHINE 2 MG/ML SYR IV PRN ×3 (10:15→22:58)
[2022-01-04] MEDS: ONDANSETRON 4 MG/2 ML VIAL IV PRN ×2 (10:15→23:04)
[2022-01-04 10:49] VITALS: BMI 41.1
[2022-01-04] MEDS: INSULIN -REGULAR HUMAN 50 UNIT/0.5 ML ML SQ SCH ×3 (11:30→21:17)
[2022-01-04] MEDS ORDERED: PROMETHAZINE INJ 25 MG/ML AMP IV PRN (14:37)
--- NOTE | 2022-01-04 14:39 | EKG ---
Test Date: 2022-01-03 Test Time: 23:47:54 Household Chores: SHANELL MEASUREMENT RESULTS: Intervals: Rate: 122 WV: 138 QRSD: 84 QT: 316 QTc: 450 [place]: P: 33 WV: 138 QRS: 40 T: 49 INTERPRETIVE STATEMENTS: Sinus tachycardia Cannot rule out Anterior infarct, age undetermined Abnormal ECG Compared to ECG 03/23/2020 18:02:16 Myocardial infarct finding now present Sinus rhythm no longer present Electronically Signed On 01-04-22 14:37:45 CDT by Mp Light
[2022-01-04] MEDS: METOPROLOL TAR 25 MG TAB PO SCH ×2 (16:42→19:18)
[2022-01-04] MEDS ORDERED: METOPROLOL TAR 25 MG TAB ONE (16:54)
--- NOTE | 2022-01-04 19:24 | RAD REPORT ---
EXAM DESCRIPTION: CT - Chest For Pe Angio - 01/04/2022 6:21 am CLINICAL HISTORY: The patient is 41 years old and is Female; chest pain TECHNIQUE: Axial computed tomographic angiography images of the chest with intravenous contrast. S agittal and coronal reformatted images were created and reviewed. This CT exam was performed using one or more of the following dose reduction techniques: automated exposure control, adjustment of t he mA and/or kV according to patient size, and/or use of iterative reconstruction technique. MIP re constructed images were created and reviewed. COMPARISON: No relevant prior studies available. FINDINGS: Pulmonary arteries: No PE identified. Aorta: No acute findings. No thoracic aortic aneurysm. Lungs: No pulmonary consolidation or groundglass opacities to suggest pneumonia. Lingula and left lower lobe linear atelectasis. No pulmonary consolidation or groundglass opa cities to suggest pneumonia. Pleural space: No pleural effusion or pneumothorax. Heart: Unremarkable. No cardiomegaly. No significant pericardial effusion. No evidence of R V dysfunction. Bones/joints: No acute fracture. No dislocation. Soft tissues: Unremarkable. Lymph nodes: Unremarkable. No enlarged lymph nodes. Gallbladder and bile ducts: Cholecystectomy. IMPRESSION: No PE identified. Electronically signed by: Omayra Cardenas MD 01/04/2022 5:08 AM CDT Due to temporary technical issues with the PACS/Fluency reporting system, reports are being signed by the in house radiologists without. review as a courtesy to insure prompt reporting. The interpreting radiologist is fully responsible for the content of the report.
--- NOTE | 2022-01-04 20:31 | RAD REPORT ---
EXAM DESCRIPTION: RAD - Chest Single View - 01/04/2022 12:18 am CLINICAL HISTORY: CHEST PAIN COMPARISON: None. TECHNIQUE: XR CHEST 1 VIEW 01/03/2022 11:59 PM CDT FINDINGS: Cardiac silhouette is normal in size. Lungs are clear without consolidation, atelectasis, mass or edema. There is no pleural effusion. There is no pneumothorax. There are no acute osseous fin dings. IMPRESSION: Clear lungs. Electronically signed by: Gualberto Mcmullen MD 01/04/2022 2:59 AM CDT Due to temporary technical issues with the PACS/Fluency reporting system, reports are being signed by the in house radiologists without. review as a courtesy to insure prompt reporting. The interpreting radiologist is fully responsible for the content of the report
[2022-01-05] MEDS: NA CHLORIDE 0.9% 1,000 ML IV SCH (05:25)
[2022-01-05] MEDS: METOPROLOL TAR 25 MG TAB PO SCH (05:29)
[2022-01-05 05:42] LABS: Absolute Lymphocytes (CBC) 2.8 K/uL (0.7-4.9); Hematocrit 32.7 % (36.0-45.0); Lymphocytes % 42.8 % (15.3-44.8); MCV 82.8 fL (80-100); MPV 7.2 fL (7.6-11.3); RBC Red Blood Cell Count 3.96 M/uL (3.86-4.86)
[2022-01-05 06:01] LABS: Albumin 3.6 g/dL (3.4-5.0); Bilirubin Total 0.3 mg/dL (0.2-1.0); Magnesium 1.7 mg/dL (1.8-2.4); Phosphorus 3.6 mg/dL (2.5-4.9); Potassium 3.9 mmol/L (3.5-5.1); Protein, Total 7.2 g/dL (6.4-8.2)
[2022-01-05] MEDS: INSULIN -REGULAR HUMAN 50 UNIT/0.5 ML ML SQ SCH ×3 (07:30→16:42)
[2022-01-05] MEDS: ENOXAPARIN 40 MG/0.4 ML SQ SCH (08:41)
--- NOTE | 2022-01-05 08:53 | EKG ---
Test Date: 2022-01-04 Test Time: 22:19:27 Glove Machine Operator: DIEGO MEASUREMENT RESULTS: Intervals: Rate: 80 VA: 164 QRSD: 88 QT: 398 QTc: 459 [place]: P: 50 VA: 164 QRS: 62 T: 49 INTERPRETIVE STATEMENTS: Normal sinus rhythm Normal ECG Compared to ECG 01/03/2022 23:47:54 Sinus tachycardia no longer present Myocardial infarct finding no longer present Electronically Signed On 01-05-22 08:52:01 CDT by Homer Garcia
[2022-01-05] MEDS ORDERED: POTASSIUM CL SA 10 MEQ TAB PO ONE (09:00)
[2022-01-05] MEDS ORDERED: MAGNESIUM SULFATE 1 gm IVPB 1 GM/100 ML BAG IV ONE (09:00)
[2022-01-05 13:36] VITALS: O2SAT 96
--- NOTE | 2022-01-05 13:59 | CON ---
Date of Consultation: 01/04/[address] Linder on 01/03/2022. I saw the patient on 01/04/2022. Reason For Consultation: Palpitations. History Of Present Illness: Ms. Franco is a 41-year-old woman who has been followed by Dr. Pederson in the past, but has not seen in the clinic. She has seen in th e past and found that she may have had an ablation and cardioversion in the past, but all we have doc umented in the old records in the office is sinus tachycardia. She has had normal echos in the past. She came in with palpitation and chest pain over the left upper chest and left arm without any naus ea, vomiting, diaphoresis, PND, orthopnea, pedal edema, or syncope. Denied any fever or chills or co ugh. So far, her workup has been negative . Her EKG showed sinus tachycardia. Past Medical History: Includes diabetes, dyslipidemia, and hypertension. Review of Systems: Negative. Social History: Negative. Family History: Noncontributory. Physical Examination: General: She appeared to be anxious. Vital Signs: Blood pressure 100/60, sinus tachycardia. HEENT: Negative. Neck: Supple with no bruit. Chest: Clear. Cardiac: Revealed a regular rhythm and rate. No murmurs, gallops, or rubs. Abdomen: Obese, but benign. Extremities: Revealed no clubbing, cyanosis, or edema. Diagnostic Data: All within normal limits. Impression And Plan: 1.Sinus tachycardia, palpitation. 2.Atypical chest pain. 3.Diabetes. 4.Hypertension. 5.Obesity. 6.Dyslipidemia. I think Ms. Franco may or may not be able to tolerate the low-dose beta-blockers. We should consider hydrating her. She can go home whenever it is okay with Dr. Linder. I think she needs to have an outpatient event monitor, outpatient MPI, and an echocardiogram in the very near fut ure she can go home otherwise whenever it is okay with primary or admitting physician. IRIS/EDNA Voice ID: [id number] Report ID: [id number]
--- NOTE | 2022-01-05 14:14 | P.DS ---
Admission Date: 01/04/22 Discharge Date: 01/05/22 Disposition: ROUTINE DISCHARGE Discharge Condition: FAIR Reason for Admission: palpitations, chest pain Consultations: Cardiology-Dr. Garcia. - Problems (1) Palpitations Onset Date: 08/18/16 Current Visit: No Status: Acute (2) Morbid obesity Current Visit: No Status: Chronic (3) Chest pain Onset Date: 04/27/16 Current Visit: No Status: Acute (4) Hypertriglyceridemia Onset Date: 11/10/17 Current Visit: No Status: Acute Brief History of Present Illness: 41yo F, PMH: hypertriglyceridemia, insulin-dependent DM 2, h/o arrhythmia s/p ablation ~4yrs ago, prior episodes of pancreatitis presented to ED with L chest pain, radiates to L shoulder. Has been feeling palpitations for 1 day. She woke up with palpitations / not feeling well. Apple watch alerted her of heart rate up to 140-150s for brief episodes. Palpitation associated with nausea/lightheadedness. Reports history ~3-4 years ago of 2 procedures where they "burned off something" in her heart due to rhythm issue. In the ED, she was noted to be sinus tachycardic, labs within normal limits. Patient hospitalized for further management. Hospital Course: Patient placed on observation on the medical floor. Troponin was negative. She was seen in consultation by cardiology who confirmed sinus tachycardia. Patient blood pressure was borderline low. She was placed on low-dose metoprolol per cardiology recommendation. Echocardiogram done and the result is pending. Patient was asymptomatic during the hospital stay. Heart rate improved during the hospital stay. Cardiology recommended further outpatient follow-up and consideration event monitor placement to assess for arrhythmias. Patient deemed stable for discharge per cardiology. Vital Signs/Physical Exam: Temp Pulse Resp BP Pulse Ox 97.6 F 78 16 106/66 96 01/05/22 12:00 01/05/22 12:00 01/05/22 12:00 01/05/22 12:00 01/05/22 12:00 General: Alert, In no apparent distress, Oriented x3, Obese HEENT: Mucous membr. moist/pink Neck: Supple, JVD not distended Respiratory: Clear to auscultation bilaterally, Normal air movement Cardiovascular: No edema, Regular rate/rhythm, Normal S1 S2, No murmurs Capillary refill: <2 Seconds Gastrointestinal: Normal bowel sounds, Soft and benign, Non-distended Musculoskeletal: No swelling Integumentary: No rashes Neurological: Normal strength at 5/5 x4 extr Laboratory Data at Discharge: WBC 6.6 K/uL (4.3-10.9) D 01/05/22 05:11 Hgb 11.1 g/dL (12.0-15.0) L 01/05/22 05:11 Hct 32.7 % (36.0-45.0) L 01/05/22 05:11 Plt Count 223 K/uL (152-406) 01/05/22 05:11 PT 11.3 SECONDS (9.5-12.5) 01/04/22 00:10 INR 1.03 01/04/22 00:10 Sodium 136 mmol/L (136-145) 01/05/22 05:11 Potassium 3.9 mmol/L (3.5-5.1) 01/05/22 05:11 BUN 14 mg/dL (7-18) 01/05/22 05:11 Creatinine 0.88 mg/dL (0.55-1.3) 01/05/22 05:11 Glucose 240 mg/dL (74-106) H 01/05/22 05:11 Phosphorus 3.6 mg/dL (2.5-4.9) 01/05/22 05:11 Magnesium 1.7 mg/dL (1.8-2.4) L 01/05/22 05:11 Total Bilirubin 0.3 mg/dL (0.2-1.0) 01/05/22 05:11 AST 19 U/L (15-37) 01/05/22 05:11 ALT 47 U/L (12-78) 01/05/22 05:11 Alkaline Phosphatase 52 U/L (45-117) 01/05/22 05:11 Lipase 192 U/L (73-393) 01/04/22 00:10 Home Medications: Metformin HCl 1,000 mg PO BID 09/16/17 Atorvastatin Calcium [Lipitor] 80 mg PO BEDTIME 12/07/21 Fenofibrate,Micronized [Fenofibrate] 1 tab PO DAILY 12/07/21 Glipizide [Glipizide ER] 10 mg PO BID 12/07/21 Liraglutide [Victoza 2-Christofer] 0.6 mg SQ 12/07/21 Lisinopril [Zestril] 10 mg PO DAILY 12/07/21 Insulin Degludec [Tresiba Flextouch U-100] 70 units SQ BID #15 ml 12/09/21 Metoprolol Tartrate [Lopressor*] 12.5 mg PO BID 6AM 6PM #30 tab 01/05/22 New Medications: Metoprolol Tartrate [Lopressor*] 12.5 mg PO BID 6AM 6PM #30 tab Diet: ADA Activity: Ad kimberly Followup: Homer Garcia MD [ACTIVE - CAN ADMIT] - 1-2 Weeks NONE,NONE [Primary Care Provider] -
[2022-01-05 15:00] LABS: Urine Appearance Clear (Clear); Urine Bilirubin Negative (Negative); Urine Blood Negative (Negative); Urine Color Yellow (Yellow); Urine Glucose 2+ (Negative); Urine Protein Negative (Negative); Urine Urobilinogen 0.2 mg/dL (0.2-1.0); Urine pH 6.5 (5.0-7.0)
[2022-01-05 15:08] LABS: Urine Microscopic Reflex NO UMIC
[2022-01-05 16:02] VITALS: BP 95/57; TEMP 97.9
--- NOTE | 2022-01-06 07:33 | ECHO ---
HEIGHT: 5 ft 4 in WEIGHT: 240 lb 0 oz DATE OF STUDY: 01/05/[address]: Ivan Linder MD 2-DIMENSIONAL: YES M.MODE: YES DOPPLER: YES COLOR FLOW: YES TDS: NO PORTABLE: YES DEFINITY: NO BUBBLE STUDY: NO DIAGNOSIS: TACHYCARDIA CARDIAC HISTORY: CATHERIZATION: NO SURGERY: NO PROSTHETIC VALVE: NO PACEMAKER: NO MEASUREMENTS (cm) DIASTOLIC (NORMALS) SYSTOLIC (NORMALS) IVSd 1.2 (0.6-1.2) LA Diam 4.4 (1.9-4.0) LVEF 68% LVIDd 3.7 (3.5-5.7) LVIDs 2.3 (2.0-3.5) %FS 37% LVPWd 1.0 (0.6-1.2) Ao Diam 2.5 (2.0-3.7) 2 DIMENSIONAL ASSESSMENT: RIGHT ATRIUM: NORMAL LEFT ATRIUM: NORMAL RIGHT VENTRICLE: NORMAL LEFT VENTRICLE: NORMAL TRICUSPID VALVE: NORMAL MITRAL VALVE: NORMAL PULMONIC VALVE: NORMAL AORTIC VALVE: NORMAL PERICARDIAL EFFUSION: NONE AORTIC ROOT: NORMAL LEFT VENTRICULAR WALL MOTION: NORMAL DOPPLER/COLOR FLOW: NORMAL COMMENTS: NORMAL 2D ECHOCARDIOGRAM WITH DOPPLER. NO WALL MOTION ABNORMALITY. NO EFFUSION. TECHNOLOGIST: Crystal PATEL
== END 2022-01-05 16:56 | disposition home or self-care (01) ==
LOC: ER 22:49 → ERHOLD 01-04 08:48 → 2ND 01-04 17:30
PROVIDERS: ADMIT Hospitalist; ATTEND Internal Medicine
DX: R00.0 Tachycardia, unspecified (principal); R07.89 Other chest pain; I10 Essential (primary) hypertension; E78.1 Pure hyperglyceridemia; E11.9 Type 2 diabetes mellitus without complications; E78.5 Hyperlipidemia, unspecified; K86.1 Other chronic pancreatitis; E78.00 Pure hypercholesterolemia, unspecified; F32.A Depression, unspecified; F41.9 Anxiety disorder, unspecified; E66.01 Morbid (severe) obesity due to excess calories; Z68.41 Body mass index [BMI] 40.0-44.9, adult; Z79.4 Long term (current) use of insulin; Z79.84 Long term (current) use of oral hypoglycemic drugs; Z87.440 Personal history of urinary (tract) infections; Z90.49 Acquired absence of other specified parts of digestive tract; Z20.822 Contact with and (suspected) exposure to COVID-19; Z83.3 Family history of diabetes mellitus
CPT/HCPCS: 96361; 93005 ×3; 93306; 85025 ×2; 80048; 36415 ×2; 83735; 81025; 84100; 85610; 82947 ×6; 80076; 84443; 81003 ×2; 84484; 83690; 80053; 83880; 87804 ×2; 71275; 71045; 94760 ×3; 96375; 96374; 99284; U0003; Q9967; J2550 ×3; J1815 ×4; J1650 ×2; J3475; J2270 ×4; J7040 ×2; J7030 ×2; J2405 ×2; G0378 ×3

== ENCOUNTER 2022-03-02 17:08 | Emergency (ER) | payer OTHER ==
--- OUTSIDE RECORDS SUMMARY | 2022-03-02 17:19 | XMS REPORT | Continuity of Care Document ---
:1980 Author Organization [facility] t Address [address] [place] [id number] Care Team Providers Name Role Phone HENNY Woodson [facility] Primary Care P hysician Unavailable Bebeto Quiroga Attending Clinician Unavailable Elbert Wilson Attending Clinician Unavailable BEATRIZ EDUARDO Attending Clinician Unavailable Beatriz Eduardo NP Attending Clinician JN GALLAGHER Attending Clinician Unavailable Jn Gallagher DO Attending Clinician Jade Stout Attending Clinician FOZIA JANG Attending Clinician Unavailable Fozia Jang MD Attending Clinician MARY ESPINOSA Attending Clinician Unavailable Mary Lopez Attending Clinician Doron Thompson MD Attending Clinician DORON THOMPSON Attending Clinician Unavailable BRYSON GONZALEZ Attending Clinician Unavailable FABIO AVALOS Attending Clinician Unavailable Lily Deleon PA-C Attending Clinician LESLEE SMITH Attending Clinician Unavailable LILY DELEON Attending Clinician Unavailable Doctor Unassigned, [address] Attending Clinician Unavailable STANISLAW SUN Attending Clinician Unavailable SILVINA DUKES Attending Clinician Unavailable ABHIJIT GALAN Attending Clinician Unavailable Kit Lopez Attending Clinician Unavailable KNOW, DOES_NOT Admitting Clinician Unavailable Elbert Wilson Admitting Clinician Unavailable Physician, No Primary or Family Admitting Clinician UnavailBEATRIZ Penn Admitting Clinician Unavailable JN GALLAGHER Admitting Clinician Unavailable Bebeto Quiroga Admitting Clinician Unavailable FOZIA JANG Admitting Clinician Unavailable MARY ESPINOSA Admitting Clinician Unavailable Kit Lopez Admitting Clinician Unavailable Payers Payer Name Policy Type Policy Number Effective Date Expiration Date Nakul QUINONEZ GENERIC [id number] 2019 00:00:00 COMMERCIAL [id number] 2021 NON-CONTRACT 00:00:00 GENERIC Problems Condition Condition Condition Status Onset Resolution Last Treating Co mments Source Name Details Category Date Date Treatment Clinician Date Essential Essential Disease Active Uni vers hypertensi hypertensi 5-26 it y of on on 00:00: [address] POTS POTS Disease Active Univers (postural (postural 5-26 ity of orthost[place]ost[place] Medical tachycardi tachycardi Br anch a a syndrome) syndrome) Dyslipidem Dyslipidem Disease Active U nivers ia ia 5-26 ity of 00:00: [address] Branch Atypical Atypical Disease Active Unive rs chest pain chest pain 5-25 it y of 00:00: [place] [facility] Pancreatit Pancreatit Disease Active U nivers is, is, 4-24 ity of recurrent recurrent 00:[place] [facility] Pain at Pain at Disease Active Univers surgical surgical 1-30 ity of incision incision 00:00: Medical Branch Mood Mood Disease Active Univers swings swings 1-30 ity of 00:00: Medical Branch Gestationa Gestationa Disease Active 2012-07 U nivers l l 2-21 ity of hypertensi hypertensi [place] Gestationa Gestationa Disease Active 2012-07 U nivers l l 2-21 ity of hypertensi hypertensi [place] [facility] [place] Ventral Ventral Disease Active 2012-07 Univers hernia hernia 2-21 ity of 00:00: [place] [facility] 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 U nivers supraventr l 0-08 ity of icular supraventr 00:00: [place] tachycardi icular 00 Medica l a s/p tachycardi Branch ablation a s/p ablation Other Other Disease Active Univers abnormalit abnormalit 7-31 it y of ies in ies in 00:00: [place] shape or shape or 00 Medica l position position Branch of gravid of gravid uterus and uterus and of of neighborin neighborin g g structures structures , , antepartum antepartum Biliary Biliary Disease Active Univers colic colic 7-31 ity of 00:00: [place] 00 Medical Branch Generalize Generalize Disease Active U nivers d anxiety d anxiety 7-18 ity of disorder disorder 00:00: [place] [facility] Not immune Not immune Disease Active Overview : Univers to rubella to rubella 6 Formattin ity of 00:00: g of this note Medical might be Branch different from the original. 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 Immune to Immune to Disease Active Uni vers varicella varicella 6-06 ity of 00:00: [place] 00 Medical Branch Morbid Morbid Disease Active Univers obesity obesity 3-02 ity of 00:00: [place] [facility] Type 2 Type 2 Disease [...] FA Active [place] [facility] - [place] 00:00: [facility] tequ[facility] DA Active [place] hives [facility] 07-30 [place] 00:00: [facility] alcohol FA Active [place] 2019- [facility] 01-15 [place] 00:00: [facility] 00 [facility] alcohol FA Active [place] [facility]ES [facility] [place] 01-15 [place] 00:00: Orthope 00 dic [facility]osp[facility] tequila DA Active [place] hives [facility] 01-09 [place] 00:00: [place] 00 [facility] alcohol FA Active [place] 2015- [facility] 2- [place] 00:00: Orthope 00 dic Hospita l alcohol FA Active [place] TURNS RED 2015-07 [facility] 2- [place] 00:00: Orthope 00 dic Hospita l NO KNOWN Drug Active Univers ALLERGIE Class ity of S [facility] Social History Social Habit Start Date Stop Date Quantity Comments Source History SDMO University o f Alcohol Frequency [facility] [place] edical Branch History [facility] University o f Alcohol Std [place] [facility] Drinks Branch History SDMO University o f Alcohol Binge [place] [facility] al Branch Exposure to Not sure University of SARS-CoV-2 [facility] (event) Branch Alcohol intake 2021-10-16 2021-10-16 Current drinker of Un iversity of 00:00:00 00:00:00 alcohol (finding) [facility] [place] edical [place] Alcohol Comment 2019-08-15 2019-08-15 ocassionally Univers ity of 00:00:00 00:00:00 [facility] Tobacco use and 2011-12-19 2011-12-19 Never used Universit y of exposure 00:00:00 00:00:00 [facility] Sex Assigned At [birth year] Universit y of 00:00:00 00:00:00 [facility] Smoking Status Start Date Stop Date Source Never smoker [facility] Medications Ordered Filled Start Stop Current Ordering Indication Dosage Frequency Signature Comments Components Source Medication Medication Date Date Medication? Clinician (SIG) Name Name Brody DM 2021-0 No 5mg/5 2 mg-30 7-13 mL mg-10 mg/5 00:00: mL oral 00 syrup Valium 10 2021-0 No 1mg mg tablet 12-11 00:00: 00 Macrodantin 2021-0 No 1mg 100 mg 6-03 capsule 00:00: 00 atorvastati 2021-0 No 1mg n 80 mg 5-18 tablet 00:00: 00 Victoza 2021-0 No (18 3-Christofer 0.6 5-14 mg/3 mg/0.1 mL 00:00: mL) (18 mg/3 00 mL) subcutaneou s pen injector Tresiba 2021-0 No (3 mL) FlexTouch 5-14 U-100 00:00: insulin 100 00 unit/mL (3 mL) subcutaneou s pen alogliptin 2021-0 No 1mg 25 mg 5-14 tablet 00:00: 00 lisinopril 2021-0 No 1mg 5 mg tablet 5-14 00:00: 00 atorvastati 2021-0 No 1mg n 40 mg 5-14 tablet 00:00: 00 oxybutynin 2021-0 No 1mg chloride 5 5-14 mg tablet 00:00: 00 glimepiride 2021-0 No 1mg 4 mg tablet 5-14 00:00: 00 Janumet XR 2021-0 No 1mg 100 5-14 mg-1,000 mg 00:00: tablet,exte 00 nded release doxycycline 2021-0 No 1mg hyclate 100 4-19 mg capsule 00:00: 00 Dose 2021-0 No Unknown 4-19 00:00: 00 hydroxyzine 2021-0 No 12mg HCl 25 mg 4-15 tablet 00:00: 00 Dose 2021-0 No Unknown 4-13 00:00: 00 NaCl 0.9% 2021-0 2021- No 1000mL at 999 Uni vers (NS) IV 4-09 04-09 mL/hr, ity of infusion 02:00: 02:08 [place]venou [place] 1,000 mL 00 :00 s, ONCE, 1 Medic al dose, On Branch Tue10/16/21 at 2100, MALAIKA insulin 2021- No .1U/kg 10.3 Units U nivers regular 10-17 (rounded ity of human 02:00: 01:14 from 10.34 [place] (HUMULIN R) 00 :00 Units = Medic al injection 0.1 Branch 10.3 Units Units/kg ?103.4 kg), Slow IV Push, ONCE, 1 dose, On Tue10/16/21 at 2100, STAT oxybutynin 2021- No 5mg 5 mg, Unive rs chloride 10-17 Oral, ity of (DITROPAN) 02:00: 01:09 ONCE, 1 [place] as tablet 5 mg 00 :00 dose, On Medi bonita Tue10/16/21 Branch at 2100, Routine traMADoL No 50mg [...] dose, On Tue10/16/21 at 1815, MALAI[place] ondansetron 2021- No 4mg 4 mg, Slow Univers (ZOFRAN 10-16 IV Push, ity of (PF)) 23:15: 23:05 ONCE, 1 [place] injection 4 00 :00 dose, On [facility] bonita mg Tue10/16/21 Branch at 1815, MALAIKA ketorolac 2021- No 30mg 30 mg, Unive rs (TORADOL) 10-16- Slow IV ity of injection 23:15: 23:05 Push, [place] 30 mg 00 :00 ONCE, 1 Medical dose, On Branch Tue10/16/21 at 1815, Routine
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 ondansetron Yes [id number] 4mg Take 1 Univers 4 mg 4-08 tablet by ity of disintegrat 00:00: mouth [place] ing tablet 00 every 8 Medica l (eight) Branch hours as needed for Nausea and Vomiting (N/V). traMADoL 50 2021-0 2021- No [id number] 50mg Take 1 Uni vers mg tablet 4-08 04-16 tablet by ity of 00:00: 04:59 mouth [place] 00 :00 every 8 Medical (eight) Branch hours as needed for Pain (scale 4-6) or Pain (scale 7-10) for up to 7 days. Indication s: acute pain Pyridium 2021-0 No 1mg 200 mg -02 tablet 00:00: 00 Dose 2021-0 No Unknown 4-02 00:00: 00 Dose 2021-0 No Unknown 4-02 00:00: 00 Dose 2021-0 No Unknown 4-02 00:00: 00 Dose 2021-0 No Unknown 4-02 00:00: 00 Dose 2021-0 No Unknown 4-02 00:00: 00 Dose 2021-0 No Unknown 4-02 00:00: 00 Dose 2021-0 No Unknown 4-02 00:00: 00 Dose 2021-0 No Unknown 4-02 00:00: 00 Dose 2021-0 No Unknown 4-02 00:00: 00 Dose 2021-0 No Unknown 4-02 00:00: 00 Dose 2021-0 No Unknown 4-02 00:00: 00 Dose 2021-0 No Unknown 4-02 00:00: 00 Dose 2021-0 No Unknown 4-02 00:00: 00 Dose 2021-0 No Unknown 4-02 00:00: 00 Dose 2021-0 No Unknown 4-02 00:00: 00 Dose 2021-0 No Unknown 4-02 00:00: 00 Dose 2021-0 No Unknown 4-02 00:00: 00 Dose 2022-0 No Unknown 4-02 00:00: 00 Dose 2022-0 No Unknown 4-02 00:00: 00 Dose 2022-0 No Unknown 4-02 00:00: 00 Dose 2022-0 No Unknown 4-02 00:00: 00 Dose 2022-0 No Unknown 4-02 00:00: 00 Dose 2022-0 No Unknown 4-02 00:00: 00 Dose 2022-0 No Unknown 4-02 00:00: 00 Dose 2022-0 No Unknown 4-02 00:00: 00 Dose 2022-0 No Unknown 4-02 00:00: 00 Dose 2022-0 No Unknown 4-02 00:00: 00 Dose 2022-0 No Unknown 4-02 00:00: 00 Dose 2022-0 No Unknown 4-02 00:00: 00 Dose 2022-0 No Unknown 4-02 00:00: 00 Dose 2022-0 No Unknown 3-31 00:00: 00 Dose 2022-0 No Unknown 3-31 00:00: 00 Dose 2022-0 No Unknown 3-31 00:00: 00 Dose 2022-0 No Unknown 3-31 00:00: 00 Dose 2022-0 No Unknown 3-31 00:00: 00 Dose 2022-0 No Unknown 3-31 00:00: 00 Dose 2022-0 No Unknown 3-31 00:00: 00 Dose 2022-0 No Unknown 3-31 00:00: 00 Dose 2022-0 No Unknown 3-31 00:00: 00 Dose 2022-0 No Unknown 3-31 00:00: 00 Dose 2022-0 No Unknown 3-31 00:00: 00 Dose 2022-0 No Unknown 3-31 00:00: 00 Dose 2022-0 No Unknown 3-31 00:00: 00 Dose 2022-0 No Unknown 3-31 00:00: 00 Dose 2022-0 No Unknown 3-31 00:00: 00 Dose 2022-0 No Unknown 3-31 00:00: 00 Dose 2022-0 No Unknown 3-31 00:00: 00 Diflucan 2022-0 No 1mg 150 mg 3-29 tablet 00:00: 00 ciprofloxac 2022-0 No 1mg in 500 mg 3-29 tablet 00:00: 00 Dose 2022-0 No Unknown 3-29 00:00: 00 Dose 2022-0 No Unknown 3-29 00:00: 00 Dose 2022-0 No Unknown 3-29 00:00: 00 Dose 2022-0 No Unknown 3-29 00:00: 00 Dose 2022-0 No Unknown 3- 00:00: 00 Dose 2022-0 No Unknown 3- 00:00: 00 Dose 2022-0 No Unknown 3- 00:00: 00 Dose 2022-0 No Unknown 3- 00:00: 00 Dose 2022-0 No Unknown 3- 00:00: 00 Dose 2022-0 No Unknown 3- 00:00: 00 Dose 2022-0 No Unknown 3- 00:00: 00 Dose 2022-0 No Unknown 3- 00:00: 00 Dose 2022-0 No Unknown 3- 00:00: 00 Dose 2022-0 No Unknown 3- 00:00: 00 Dose 2022-0 No Unknown 3- 00:00: 00 Dose 2022-0 No Unknown 3- 00:00: 00 Dose 2022-0 No Unknown 3- 00:00: 00 Dose 2022-0 No Unknown 3- 00:00: 00 Dose 2022-0 No Unknown 3- 00:00: 00 Dose 2022-0 No Unknown 3- 00:00: 00 Dose 2022-0 No Unknown 3- 00:00: 00 Dose 2022-0 No Unknown 3- 00:00: 00 Dose 2022-0 No Unknown 3- 00:00: 00 Dose 2022-0 No Unknown 3-29 00:00: 00 Dose 2022-0 No Unknown 3- 00:00: 00 Dose 2022-0 No Unknown 3-29 00:00: 00 Dose 2022-0 No Unknown 3- 00:00: 00 Dose 2022-0 No Unknown 3-29 00:00: 00 Dose 2022-0 No Unknown 3-29 00:00: 00 Dose 2022-0 No Unknown 3-29 00:00: 00 Dose 2022-0 No Unknown 3-29 00:00: 00 Dose 2022-0 No Unknown 3-29 00:00: 00 Dose 2022-0 No Unknown 3-29 00:00: 00 Dose 2022-0 No Unknown 3-29 00:00: 00 Dose 2022-0 No Unknown 3-29 00:00: 00 Dose 2022-0 No Unknown 3-29 00:00: 00 Dose 2022-0 No Unknown 3-29 00:00: 00 Dose 2022-0 No Unknown 3-29 00:00: 00 Dose 2022-0 No Unknown 3- 00:00: 00 Dose 2022-0 No Unknown 3- 00:00: 00 Dose 2022-0 No Unknown 3-29 00:00: 00 Dose 2022-0 No Unknown 3-29 00:00: 00 Dose 2022-0 No Unknown 3-29 00:00: 00 Dose 2022-0 No Unknown 3- 00:00: 00 Dose 2022-0 No Unknown 3- 00:00: 00 Dose 2022-0 No Unknown 3- 00:00: 00 Dose 2022-0 No Unknown 3- 00:00: 00 Dose 2022-0 No Unknown 3- 00:00: 00 Dose 2022-0 No Unknown 3- 00:00: 00 Dose 2022-0 No Unknown 3- 00:00: 00 Dose 2022-0 No Unknown 3- 00:00: 00 Dose 2022-0 No Unknown 3- 00:00: 00 Dose 2022-0 No Unknown 3-29 00:00: 00 Dose 2022-0 No Unknown 3- 00:00: 00 Dose 2022-0 No Unknown 3- 00:00: 00 Dose 2022-0 No Unknown 3- 00:00: 00 Dose 2022-0 No Unknown 3-29 00:00: 00 Dose 2022-0 No Unknown 3-29 00:00: 00 Dose 2022-0 No Unknown 3- 00:00: 00 Dose 2022-0 No Unknown 3- 00:00: 00 Dose 2022-0 No Unknown 3-29 00:00: 00 Dose 2022-0 No Unknown 3-29 00:00: 00 Dose 2022-0 No Unknown 3-29 00:00: 00 Dose 2022-0 No Unknown 3- 00:00: 00 Dose 2022-0 No Unknown 3-29 00:00: 00 Dose 2022-0 No Unknown 3-29 00:00: 00 Dose 2022-0 No Unknown 3-29 00:00: 00 Dose 2022-0 No Unknown 3-29 00:00: 00 Dose 2022-0 No Unknown 3-29 00:00: 00 Dose 2022-0 No Unknown 3-29 00:00: 00 Dose 2022-0 No Unknown 3-29 00:00: 00 Dose 2022-0 No Unknown 3- 00:00: 00 Dose 2022-0 No Unknown 3- 00:00: 00 Dose 2022-0 No Unknown 3-29 00:00: 00 Dose 2022-0 No Unknown 3-29 00:00: 00 Dose 2022-0 No Unknown 3- 00:00: 00 Dose 2022-0 No Unknown 3- 00:00: 00 Dose 2022-0 No Unknown 3-29 00:00: 00 Dose 2022-0 No Unknown 3- 00:00: 00 Dose 2022-0 No Unknown 3- 00:00: 00 Dose 2022-0 No Unknown 3- 00:00: 00 Dose 2022-0 No Unknown 3- 00:00: 00 Dose 2022-0 No Unknown 3- 00:00: 00 Dose 2022-0 No Unknown 3- 00:00: 00 Dose 2022-0 No Unknown 3- 00:00: 00 Dose 2022-0 No Unknown 3-29 00:00: 00 Dose 2022-0 No Unknown 3-29 00:00: 00 Dose 2022-0 No Unknown 3- 00:00: 00 Dose 2022-0 No Unknown 3- 00:00: 00 Dose 2022-0 No Unknown 3- 00:00: 00 Dose 2022-0 No Unknown 3-29 00:00: 00 Dose 2022-0 No Unknown 3-29 00:00: 00 Dose 2022-0 No Unknown 3-29 00:00: 00 Dose 2022-0 No Unknown 3-29 00:00: 00 Dose 2022-0 No Unknown 3-29 00:00: 00 Dose 2022-0 No Unknown 3-29 00:00: 00 Dose 2022-0 No Unknown 3-29 00:00: 00 Dose 2022-0 No Unknown 3-29 00:00: 00 Dose 2022-0 No Unknown 3-29 00:00: 00 Dose 2022-0 No Unknown 3-29 00:00: 00 Dose 2022-0 No Unknown 3-29 00:00: 00 Dose 2022-0 No Unknown 3-29 00:00: 00 Dose 2022-0 No Unknown 3-29 00:00: 00 Dose 2022-0 No Unknown 3-29 00:00: 00 Dose 2022-0 No Unknown 3- 00:00: 00 Dose 2022-0 No Unknown 3- 00:00: 00 Dose 2022-0 No Unknown 3- 00:00: 00 Dose 2022-0 No Unknown 3- 00:00: 00 Dose 2022-0 No Unknown 3- 00:00: 00 Dose 2022-0 No Unknown 3- 00:00: 00 Dose 2022-0 No Unknown 3- 00:00: 00 Dose 2022-0 No Unknown 3- 00:00: 00 Dose 2022-0 No Unknown 3- 00:00: 00 Dose 2022-0 No Unknown 3- 00:00: 00 Dose 2022-0 No Unknown 3- 00:00: 00 Dose 2022-0 No Unknown 3- 00:00: 00 Dose 2022-0 No Unknown 3- 00:00: 00 Dose 2022-0 No Unknown 3- 00:00: 00 Dose 2022-0 No Unknown 3- 00:00: 00 Dose 2022-0 No Unknown 3- 00:00: 00 Dose 2022-0 No Unknown 3- 00:00: 00 Dose 2022-0 No Unknown 3- 00:00: 00 Dose 2022-0 No Unknown 3- 00:00: 00 Dose 2022-0 No Unknown 3-29 00:00: 00 Dose 2022-0 No Unknown 3- 00:00: 00 Dose 2022-0 No Unknown 3-29 00:00: 00 Dose 2022-0 No Unknown 3- 00:00: 00 Dose 2022-0 No Unknown 3-29 00:00: 00 Dose 2022-0 No Unknown 3-29 00:00: 00 Dose 2022-0 No Unknown 3-29 00:00: 00 Dose 2022-0 No Unknown 3-29 00:00: 00 Dose 2022-0 No Unknown 3-29 00:00: 00 Dose 2022-0 No Unknown 3-29 00:00: 00 Dose 2022-0 No Unknown 3-29 00:00: 00 Dose 2022-0 No Unknown 3-29 00:00: 00 Dose 2022-0 No Unknown 3-29 00:00: 00 Dose 2022-0 No Unknown 3-29 00:00: 00 Dose 2022-0 No Unknown 3-29 00:00: 00 Dose 2022-0 No Unknown 3- 00:00: 00 Dose 2022-0 No Unknown 3- 00:00: 00 Dose 2022-0 No Unknown 3-29 00:00: 00 Dose 2022-0 No Unknown 3-29 00:00: 00 Dose 2022-0 No Unknown 3-29 00:00: 00 Dose 2022-0 No Unknown 3- 00:00: 00 Dose 2022-0 No Unknown 3- 00:00: 00 Dose 2022-0 No Unknown 3- 00:00: 00 Dose 2022-0 No Unknown 3- 00:00: 00 Dose 2022-0 No Unknown 3- 00:00: 00 Dose 2022-0 No Unknown 3- 00:00: 00 Dose 2022-0 No Unknown 3- 00:00: 00 Dose 2022-0 No Unknown 3- 00:00: 00 Dose 2022-0 No Unknown 3- 00:00: 00 Dose 2022-0 No Unknown 3-29 00:00: 00 Dose 2022-0 No Unknown 3- 00:00: 00 Dose 2022-0 No Unknown 3- 00:00: 00 Dose 2022-0 No Unknown 3- 00:00: 00 Dose 2022-0 No Unknown 3-29 00:00: 00 Dose 2022-0 No Unknown 3-29 00:00: 00 Dose 2022-0 No Unknown 3- 00:00: 00 Dose 2022-0 No Unknown 3- 00:00: 00 Dose 2022-0 No Unknown 3-29 00:00: 00 Dose 2022-0 No Unknown 3-29 00:00: 00 Dose 2022-0 No Unknown 3-29 00:00: 00 Dose 2022-0 No Unknown 3- 00:00: 00 Dose 2022-0 No Unknown 3-29 00:00: 00 Dose 2022-0 No Unknown 3-29 00:00: 00 Dose 2022-0 No Unknown 3-29 00:00: 00 Dose 2022-0 No Unknown 3-29 00:00: 00 Dose 2022-0 No Unknown 3-29 00:00: 00 Dose 2022-0 No Unknown 3-29 00:00: 00 Dose 2022-0 No Unknown 3-29 00:00: 00 Dose 2022-0 No Unknown 3- 00:00: 00 Dose 2022-0 No Unknown 3- 00:00: 00 Dose 2022-0 No Unknown 3-29 00:00: 00 Dose 2022-0 No Unknown 3-29 00:00: 00 Dose 2022-0 No Unknown 3- 00:00: 00 Dose 2022-0 No Unknown 3- 00:00: 00 Dose 2022-0 No Unknown 3-29 00:00: 00 Dose 2022-0 No Unknown 3- 00:00: 00 Dose 2022-0 No Unknown 3- 00:00: 00 Dose 2022-0 No Unknown 3- 00:00: 00 Dose 2022-0 No Unknown 3- 00:00: 00 Dose 2022-0 No Unknown 3- 00:00: 00 Dose 2022-0 No Unknown 3- 00:00: 00 Dose 2022-0 No Unknown 3- 00:00: 00 Dose 2022-0 No Unknown 3-29 00:00: 00 Dose 2022-0 No Unknown 3-29 00:00: 00 Dose 2022-0 No Unknown 3- 00:00: 00 Dose 2022-0 No Unknown 3- 00:00: 00 Dose 2022-0 No Unknown 3- 00:00: 00 Dose 2022-0 No Unknown 3-29 00:00: 00 Dose 2022-0 No Unknown 3-29 00:00: 00 Dose 2022-0 No Unknown 3-29 00:00: 00 Dose 2022-0 No Unknown 3-29 00:00: 00 Dose 2022-0 No Unknown 3-29 00:00: 00 Dose 2022-0 No Unknown 3-29 00:00: 00 Dose 2022-0 No Unknown 3-29 00:00: 00 Dose 2022-0 No Unknown 3-29 00:00: 00 Dose 2022-0 No Unknown 3-29 00:00: 00 Dose 2022-0 No Unknown 3-29 00:00: 00 Dose 2022-0 No Unknown 3-29 00:00: 00 Dose 2022-0 No Unknown 3-29 00:00: 00 Dose 2022-0 No Unknown 3-29 00:00: 00 Dose 2022-0 No Unknown 3-29 00:00: 00 Dose 2022-0 No Unknown 3- 00:00: 00 Dose 2022-0 No Unknown 3- 00:00: 00 Dose 2022-0 No Unknown 3- 00:00: 00 Dose 2022-0 No Unknown 3- 00:00: 00 Dose 2022-0 No Unknown 3- 00:00: 00 Dose 2022-0 No Unknown 3- 00:00: 00 Dose 2022-0 No Unknown 3- 00:00: 00 Dose 2022-0 No Unknown 3- 00:00: 00 Dose 2022-0 No Unknown 3- 00:00: 00 Dose 2022-0 No Unknown 3- 00:00: 00 Dose 2022-0 No Unknown 3- 00:00: 00 Dose 2022-0 No Unknown 3- 00:00: 00 Dose 2022-0 No Unknown 3- 00:00: 00 Dose 2022-0 No Unknown 3- 00:00: 00 Dose 2022-0 No Unknown 3- 00:00: 00 Dose 2022-0 No Unknown 3- 00:00: 00 Dose 2022-0 No Unknown 3- 00:00: 00 Dose 2022-0 No Unknown 3- 00:00: 00 Dose 2022-0 No Unknown 3- 00:00: 00 Dose 2022-0 No Unknown 3-29 00:00: 00 Dose 2022-0 No Unknown 3- 00:00: 00 Dose 2022-0 No Unknown 3-29 00:00: 00 Dose 2022-0 No Unknown 3- 00:00: 00 Dose 2022-0 No Unknown 3-29 00:00: 00 Dose 2022-0 No Unknown 3-29 00:00: 00 Dose 2022-0 No Unknown 3-29 00:00: 00 Dose 2022-0 No Unknown 3-29 00:00: 00 Dose 2022-0 No Unknown 3-29 00:00: 00 Dose 2022-0 No Unknown 3-29 00:00: 00 Dose 2022-0 No Unknown 3-29 00:00: 00 Dose 2022-0 No Unknown 3-29 00:00: 00 Dose 2021-0 No Unknown 3-29 00:00: 00 Dose 2021-0 No Unknown 3-29 00:00: 00 Dose 2021-0 No Unknown 3-29 00:00: 00 Dose 2021-0 No Unknown 3-29 00:00: 00 Dose 2021-0 No Unknown 3-29 00:00: 00 Dose 2021-0 No Unknown 3-29 00:00: 00 Dose 2021-0 No Unknown 3-29 00:00: 00 Dose 2021-0 No Unknown 3-29 00:00: 00 Dose 2021-0 No Unknown 3-29 00:00: 00 Dose 2021-0 No Unknown 3-29 00:00: 00 Dose 2021-0 No Unknown 3-29 00:00: 00 Dose 2021-0 No Unknown 3-29 00:00: 00 Dose 2021-0 No Unknown 3-29 00:00: 00 Dose 2021-0 No Unknown 3-29 00:00: 00 Dose 2021-0 No Unknown 3-29 00:00: 00 Dose 2021-0 No Unknown 3-29 00:00: 00 Dose 2021-0 No Unknown 3-29 00:00: 00 Dose 2021-0 No Unknown 3-29 00:00: 00 Dose 2021-0 No Unknown 3-29 00:00: 00 Dose 2021-0 No Unknown 3-29 00:00: 00 Dose 2021-0 No Unknown 3-29 00:00: 00 Dose 2021-0 No Unknown 3-29 00:00: 00 Dose 2021-0 No Unknown 3-29 00:00: 00 ketorolac 2021-0 2021- No 15mg 15 mg, Unive rs (TORADOL) 3-15 03-16 Slow IV ity of injection 17:00: 16:59 Push, Q6H, [place] 15 mg 00 :00 4 doses, Medical First dose Branch on Tue09/22/21 at 1200, Last dose on Tue09/23/21 at 0600, Routine NaCl 0.9% 2021- No 1000mL at 999 Uni vers (NS) bolus 3-15 03-15 mL/hr, ity of infusion 16:15: 17:05 1,000 mL, [place] as 1,000 mL 00 :00 IV Medical Piggyback, Branch ONCE, 1 dose, On e 09/22/21 at 1115, STAT ondansetron 2021- No 4mg 4 mg, Slow Univers (ZOFRAN 3-15 03-15 IV Push, ity of (PF)) 15:15: 15:18 ONCE, 1 [place] injection 4 00 :00 dose, On Medi bonita mg e Branch 09/22/21 at 1015, Routine Dose 0 No Unknown -19 00:00: 00 Dose 2021-0 No Unknown -19 00:00: 00 hydrochloro 2021-0 No 1mg thiazide 25 1-19 mg tablet 00:00: 00 Dose 0 No Unknown -19 00:00: 00 Dose 2021-0 No Unknown -19 00:00: 00 Dose 2021-0 No Unknown -19 00:00: 00 Dose 2021-0 No Unknown -19 00:00: 00 amitriptyli No 1mg ne 10 mg -19 tablet 00:00: 00 gabapentin No 3mg 300 mg - capsule 00:00: 00 morpHINE 2020-07- No 4mg 4 mg, Slow Un fabiana injection 4 08-19- IV Push, ity of mg 14:30: 13:31 ONCE, 1 [place] 00 :00 dose, On Medical Rachael Branch 06/18/21 at 0830, STAT NaCl 0.9% 2020-07 Yes 1000mL at 999 Univ ers (NS) IV 2-09 mL/hr, ity of infusion 14:00: Intravenou [place] as 1,000 mL 00 s, Medical CONTINUOUS Branch , Starting on Rachale 06/18/21 at 0800, Until Discontinu ed, Routine ketorolac 2020-07- No 30mg 30 mg, Unive rs (TORADOL) - 12-09 Slow IV ity of injection 13:15: 12:10 [...] Indication s: acute pain ondansetron 2020-07 Yes [id number] 4mg Take 1 Univers 4 mg 2-09 [...] Indication s: acute pain ondansetron 2020-07 Yes [id number] 4mg Take 1 Univers 4 mg 2-09 [...] Indication s: acute pain ondansetron 2020-07 Yes [id number] 4mg Take 1 Univers 4 mg 2-09 tablet by ity of disintegrat 00:00: mouth [place] ing tablet 00 every 4 Medica l (four) Branch hours as needed for Nausea and Vomiting (N/V). traMADoL 50 2020-07- No [id number] 50mg Take 1 [facility] vers mg tablet 2 04-08 tablet by ity of 00:00: 00:00 mouth [place] 00 :00 every 6 Medical (six) Branch hours as needed for Pain (scale 4-6). Indication s: acute pain ondansetron 2020-07- No [id number] 4mg Take 1 [facility] 4 mg 2-09 04-08 tablet by ity of disintegrat 00:00: 00:[place] tablet 00 :00 every 4 Medica l (four) Branch hours as needed for Nausea and Vomiting (N/V). hydrochloro 2020-07 No 1mg thiazide 25 2-08 mg tablet 00:00: 00 glimepiride 2020-07 No 1mg 4 mg tablet 2-08 00:00: 00 Diflucan 2020-07 No 1mg 150 mg 2-08 tablet 00:00: 00 hydrochloro 2020-07 No 1mg thiazide 25 2-07 mg tablet 00:00: 00 glimepiride 2020-07 No 1mg 4 mg tablet 2-07 00:00: 00 Diflucan 2020-07 No 1mg 150 mg 2-07 tablet 00:00: 00 ondansetron 2020-07- No 4mg 4 mg, Slow [facility] (ZOFRAN 07-31 IV Push, ity of (PF)) 00:00: 23:01 ONCE, 1 [place] injection 4 00 :00 dose, On Medi bonita mg Sat Branch 05/30/21 at 1800, [place] HYDROcodone 2020-07- No 1{tbl} 1 tablet, [facility] -acetaminop 07-31 Oral, ity of hen (NORCO) 00:00: 22:57 [place]CE, 1 [place] 10-325 mg 00 :00 dose, On Medica l tablet 1 Sat Branch tablet 05/30/21 at 1800, Routine iopamidol 2020-07- No [id number] 100mL 100 mL, [facility] (ISOVUE 07-30 9109 Intravenou ity o f 370-500 mL) 23:48: 23:48 s, ONCE, 1 [place] injection 00 :00 dose, On Medica l 100 mL Sat Branch 05/30/21 at 1800, Routine ibuprofen 2020-07 Yes [id number] 600mg Take 1 [facility] 600 mg -20 [id number] tablet by ity of tablet 00:00: mouth [place] 00 every 6 Medical (six) Branch hours as needed for Pain (scale 4-6). traMADoL 50 2020-07 Yes [id number] 50mg Take 1 [facility] ers mg tablet 1-20 tablet by ity o f 00:00: mouth [place] 00 every 6 Medical (six) Branch hours as needed for Pain (scale 7-10). Indication s: acute pain ibuprofen 2020-07 Yes [id number] 600mg Take 1 [facility] 600 mg 1-20 [id number] tablet by ity of tablet 00:00: mouth [place] 00 every 6 Medical (six) Branch hours as needed for Pain (scale 4-6). traMADoL 50 2020-07 Yes [id number] 50mg Take 1 [facility] ers mg tablet 1-20 tablet by ity o f 00:00: mouth [place] 00 every 6 Medical (six) Branch hours as needed for Pain (scale 7-10). Indication s: acute pain ibuprofen 2020-07 Yes [id number] 600mg Take 1 [facility] 600 mg 1-20 [id number] tablet by ity of tablet 00:00: mouth [place] 00 every 6 Medical (six) Branch hours as needed for Pain (scale 4-6). traMADoL 50 2020-07 Yes [id number] 50mg Take 1 [facility] ers mg tablet 1-20 tablet by ity o f 00:00: mouth [place] 00 every 6 Medical (six) Branch hours as needed for Pain (scale 7-10). Indication s: acute pain ibuprofen 2020-07 Yes [id number] 600mg Take 1 [facility] 600 mg 1-20 [id number] tablet by ity of tablet 00:00: mouth [place] 00 every 6 Medical (six) Branch hours as needed for Pain (scale 4-6). traMADoL 50 2020-07 Yes [id number] 50mg Take 1 Univ ers mg tablet 1-20 tablet by ity o f 00:00: mouth [place] 00 every 6 Medical (six) Branch hours as needed for Pain (scale 7-10). Indication s: acute pain ibuprofen 2020-07 Yes [id number] 600mg Take 1 [facility] 600 mg 1-20 [id number] tablet by ity of tablet 00:00: mouth [place] 00 every 6 Medical (six) Branch hours as needed for Pain (scale 4-6). traMADoL 50 2020-07- No [id number] 50mg Take 1 Uni vers mg tablet 1-20 04-08 tablet by ity of 00:00: 00:00 mouth [place] 00 :00 every 6 Medical (six) Branch hours as needed for Pain (scale 7-10). Indication s: acute pain Abilify 5 2020-07 No 1mg mg tablet -01 00:00: 00 sumatriptan 2020-07 No 1mg 50 mg 0-07 tablet 00:00: 00 Tresiba No (3 mL) FlexTouch 9-28 U-100 00:00: insulin 100 00 unit/mL (3 mL) subcutaneou s pen alogliptin No 1mg 25 mg 9-28 tablet 00:00: 00 lisinopril 2020-0 No 1mg 5 mg tablet 04-07 00:00: 00 hydrochloro 2020-0 No 1mg thiazide 25 9-28 mg tablet 00:00: 00 glimepiride 2020-0 No 1mg 4 mg tablet 04-07 00:00: 00 Janumet XR 2020-0 No 1mg 100 9-28 mg-1,000 mg 00:00: tablet,exte 00 nded release amitriptyli 2020-0 No 1mg ne 10 mg - tablet 00:00: 00 gabapentin 2020-0 No 3mg 300 mg -28 capsule 00:00: 00 Vascepa 1 2020-0 No 1gram gram - capsule 00:00: 00 Augmentin 2020-0 No 1mg 875 mg-125 9-13 mg tablet 00:00: 00 fluconazole 2020-0 No 1mg 200 mg 9-13 tablet 00:00: 00 Flonase 2020-0 No 2mcg/ac Allergy 03-23 tuation Relief 50 00:00: mcg/actuati 00 on nasal spray,suspe nsion azithromyci 2020-0 No mg n 250 mg 9-10 tablet 00:00: 00 benzonatate 2020-0 No 1mg 200 mg 9-10 capsule 00:00: 00 Bromfed DM 2020-0 No 5mg/5 2 mg-30 9-10 mL mg-10 mg/5 00:00: mL oral 00 syrup VASCEPA 1 2020-0 Yes [id number] TAKE 3 U nivers gram 9-10 CAPSULES ity of capsule 00:00: BY MOUTH [place] EVERY DAY Medical Branch VASCEPA 1 2020-0 Yes [id number] TAKE 3 U nivers gram 9-10 CAPSULES ity of capsule 00:00: BY MOUTH [place] EVERY DAY Medical Branch VASCEPA 1 2020-0 Yes [id number] TAKE 3 U nivers gram 9-10 CAPSULES ity of capsule 00:00: BY MOUTH [place] EVERY DAY Medical Branch VASCEPA 1 2020-0 Yes [id number] TAKE 3 U nivers gram 9-10 CAPSULES ity of capsule 00:00: BY MOUTH [place] EVERY DAY Medical Branch VASCEPA 1 2020-0 Yes [id number] TAKE 3 U nivers gram 9-10 CAPSULES ity of capsule 00:00: BY MOUTH [place] EVERY DAY Medical Branch VASCEPA 1 2020-0 Yes [id number] TAKE 3 U nivers gram 9-10 CAPSULES ity of capsule 00:00: BY MOUTH [place] EVERY DAY Medical Branch metronidazo 1-0 No 1mg le 500 mg 8-06 tablet 00:00: 00 triamcinolo 1-0 No % ne 8-04 acetonide 00:00: 0.1 % 00 topical cream Macrobid 2020-0 No 1mg 100 mg 8-04 capsule 00:00: 00 Tresiba 2020-0 No (3 mL) FlexTouch 7-30 U-100 00:00: insulin 100 00 unit/mL (3 mL) subcutaneou s pen alogliptin 2020-0 No 1mg 25 mg 7-30 tablet 00:00: 00 lisinopril 1-0 No 1mg 5 mg tablet 7-30 00:00: 00 glimepiride 1-0 No 1mg 4 mg tablet 7-30 00:00: 00 Diflucan 1-0 No 1mg 150 mg 7-30 tablet 00:00: 00 amitriptyli 1-0 No 1mg ne 10 mg 7-30 tablet 00:00: 00 gabapentin 1-0 No 3mg 300 mg 7-30 capsule 00:00: 00 buspirone 1-0 No 1mg 10 mg 6-23 tablet 00:00: 00 hydroxyzine 1-0 No 12mg HCl 10 mg 6-23 tablet 00:00: 00 hydrocortis 1-0 No 1% one 2.5 % 6-20 topical 00:00: cream 00 amitriptyli 1-0 No 1mg ne 10 mg 6-20 tablet 00:00: 00 hydroxyzine 1-0 No 1mg HCl 50 mg 6-10 tablet 00:00: 00 gabapentin 1-0 No 3mg 300 mg 6-10 capsule 00:00: 00 Janumet XR 1-0 No 1mg 100 6-09 mg-1,000 mg 00:00: tablet,exte 00 nded release icosapent 2020-0 2021- No [id number] 3g Take 3 [facility] ethyL 6-02 09-10 capsules ity of (VASCEPA) 1 00:00: 00:00 by mouth [place] gram 00 :00 daily. Medical capsule Branch Tresiba No (3 mL) FlexTouch 6-01 U-100 00:00: insulin 100 00 unit/mL (3 mL) subcutaneou s pen alogliptin No 1mg 25 mg 6-01 tablet 00:00: 00 hydrochloro 2020-0 No 1mg thiazide 25 6-01 mg tablet 00:00: 00 metformin 2020-0 No 1mg 850 mg 6-01 tablet 00:00: 00 gabapentin 2020-0 No 1mg 800 mg 6-01 tablet 00:00: 00 Lactobacill Yes Take by Uni vers us 5-27 mouth. ity of acidophilus 22:32: [place] (PROBIOTIC 10 Medical ORAL) [place] MULTIVITAMI Yes Take by Uni vers N ORAL 5-27 mouth. ity of 22:32: [address] multivitami Yes Take by Uni vers n with 5-27 mouth. ity of minerals 22:32: [place] (HAIR,SKIN 10 Medical AND NAILS Branch ORAL) Lactobacill Yes Take by Uni vers us 5-27 mouth. ity of acidophilus 17:32: [place] (PROBIOTIC 10 Medical ORAL) [place] MULTIVITAMI Yes Take by Uni vers N ORAL 5-27 mouth. ity of 17:32: [address] multivitami Yes Take by Uni vers n with 5-27 mouth. ity of minerals 17:32: [place] (HAIR,SKIN 10 Medical AND NAILS Branch ORAL) Lactobacill Yes Take by Uni vers us 5-27 mouth. ity of acidophilus 17:32: [place] (PROBIOTIC 10 Medical ORAL) [place] MULTIVITAMI Yes Take by Uni vers N ORAL 5-27 mouth. ity of 17:32: [place] [address] Medical [place] multivitami Yes Take by [facility] vers n with 5-27 mouth. ity of minerals 17:32: [place] (HAIR,SKIN 10 Medical AND NAILS Branch ORAL) Lactobacill Yes Take by Uni vers us 5-27 mouth. ity of acidophilus 17:32: [place] (PROBIOTIC 10 Medical ORAL) [place] MULTIVITAMI 2021-0 Yes Take by Uni vers N ORAL 5-27 mouth. ity of 17:32: [place] 10 Medical Branch multivitami 0 Yes Take by Uni vers n with 5-27 mouth. ity of minerals 17:32: [place] (HAIR,SKIN 10 Medical AND NAILS Branch ORAL) Lactobacill 0 Yes Take by Uni vers us 5-27 mouth. ity of acidophilus 17:32: [place] (PROBIOTIC 10 Medical ORAL) Branch MULTIVITAMI Yes Take by Uni vers N ORAL 5-27 mouth. ity of 17:32: [place] 10 Medical Branch multivitami Yes Take by Uni vers n with 5-27 mouth. ity of minerals 17:32: [place] (HAIR,SKIN 10 Medical AND NAILS Branch ORAL) Lactobacill Yes Take by Uni vers us 5-27 mouth. ity of acidophilus 17:32: [place] (PROBIOTIC 10 Medical ORAL) Branch MULTIVITAMI Yes Take by [facility] vers N ORAL 5-27 mouth. ity of 17:32: [place] [address] Medical Branch multivitami Yes Take by Uni vers n with 5-27 mouth. ity of minerals 17:32: [place] (HAIR,SKIN 10 Medical AND NAILS Branch ORAL) Diflucan 2020-0 No 1mg 150 mg 5-18 tablet 00:00: 00 atorvastati 2020-0 No 1mg n 40 mg 5-03 tablet 00:00: 00 gabapentin 2020-0 No 1mg 600 mg 5-03 tablet 00:00: 00 glimepiride 2020-0 Yes 4mg Take 1 [facility] ers 4 mg tablet 5-02 tablet by ity of 00:00: mouth 2 [place] (two) Medical times Branch daily with meals. glimepiride 2020-0 Yes 4mg Take 1 [facility] ers 4 mg tablet 5-02 tablet by ity of 00:00: mouth 2 [place] (two) Medical times Branch daily with meals. glimepiride 2020-0 Yes 4mg Take 1 [facility] ers 4 mg tablet 5-02 tablet by ity of 00:00: mouth 2 [place] (two) Medical times Branch daily with meals. glimepiride 2020-0 Yes 4mg Take 1 [facility] ers 4 mg tablet 5-02 tablet by ity of 00:00: mouth 2 (two) Medical times Branch daily with meals. glimepiride 0 Yes 4mg Take 1 [facility] ers 4 mg tablet 5-02 tablet by ity of 00:00: mouth 2 (two) Medical times Branch daily with meals. glimepiride Yes 4mg Take 1 [facility] ers 4 mg tablet 5-02 tablet by ity of 00:00: mouth 2 (two) Medical times Branch daily with meals. insulin Yes [id number] 35U inject 35 [facility] degludec 4-30 Units ity of (TRESIBA 00:00: [place] FLEXTOUCH 00 skin 2 Medical U-100) 100 (two) Branch unit/mL (3 times mL) InPn daily. atorvastati Yes 40mg Take 1 [facility] ers n 40 mg 4-30 tablet by ity of tablet 00:00: mouth at [place] 00 bedtime. Medical Branch fenofibrate Yes 134mg Take 1 [facility] vers micronized 4-30 capsule by ity of 134 mg 00:00: mouth [place] 00 daily. Medical Branch metFORMIN Yes [id number] 1000mg Take 1 [facility] 1,000 mg 4-30 tablet by ity of tablet 00:00: mouth (two) Medical times Branch daily with meals. blood sugar 0 Yes [id number] Use daily [facility] diagnostic 4-30 Dx E11.65 ity of (ONETOUCH 00:00: [place] VERIO TEST 00 Medical STRIPS) Branch strip lancets 0 Yes [id number] Use daily [facility] (ONE TOUCH 4-30 Dx E11.65 ity of DELICA) 33 00:00: [place] gauge Misc 00 Medical Branch gabapentin 2020-0 Yes [id number] 600mg Take 1 [facility] 600 mg 4-30 tablet by ity of tablet 00:00: mouth 2 (two) Medical times Branch daily. lisinopriL 0 Yes [id number] 2.5mg Take 1 [facility] 2.5 mg 4-30 tablet by ity of tablet 00:00: mouth [place] 00 daily. Medical Branch insulin 0 Yes [id number] 35U inject 35 [facility] degludec 4-30 Units ity of (TRESIBA 00:00: [place] the [place] FLEXTOUCH 00 skin 2 Medical U-100) 100 (two) Branch unit/mL (3 times mL) InPn daily. atorvastati Yes 40mg Take 1 [facility] ers n 40 mg 4-30 tablet by ity of tablet 00:00: mouth at [place] 00 bedtime. Medical Branch fenofibrate Yes 134mg Take 1 [facility] vers micronized 4-30 capsule by ity of 134 mg 00:00: mouth [place] capsule 00 daily. Medical Branch metFORMIN Yes [id number] 1000mg Take 1 [facility] 1,000 mg 4-30 tablet by ity of tablet 00:00: mouth 2 [place] 00 (two) Medical times Branch daily with meals. blood sugar Yes [id number] Use daily [facility] diagnostic 4-30 Dx E11.65 ity of (ONETOUCH 00:00: [place] VERIO TEST 00 Medical STRIPS) Branch strip lancets Yes [id number] Use daily [facility] (ONE TOUCH 4-30 Dx E11.65 ity of DELICA) 33 00:00: [place] gauge Misc 00 Medical Branch gabapentin Yes [id number] 600mg Take 1 [facility] 600 mg 4-30 tablet by ity of tablet 00:00: mouth 2 [place] 00 (two) Medical times Branch daily. lisinopriL Yes [id number] 2.5mg Take 1 [facility] 2.5 mg 4-30 tablet by ity of tablet 00:00: mouth [place] 00 daily. Medical Branch insulin Yes [id number] 35U inject 35 [facility] degludec 4-30 Units ity of (TRESIBA 00:00: [place] FLEXTOUCH 00 skin 2 Medical U-100) 100 (two) Branch unit/mL (3 times mL) InPn daily. atorvastati 0 Yes 40mg Take 1 [facility] ers n 40 mg 4-30 tablet by ity of tablet 00:00: mouth at [place] 00 bedtime. Medical Branch fenofibrate Yes 134mg Take 1 [facility] vers micronized 4-30 capsule by ity of 134 mg 00:00: mouth [place] capsule 00 daily. Medical Branch metFORMIN Yes [id number] 1000mg Take 1 [facility] 1,000 mg 4-30 tablet by ity of tablet 00:00: mouth 2 (two) Medical times Branch daily with meals. blood sugar 2020-0 Yes [id number] Use daily [facility] diagnostic 4-30 Dx E11.65 ity of (ONETOUCH 00:00: [place] VERIO TEST 00 Medical STRIPS) Branch strip lancets 2020-0 Yes [id number] Use daily [facility] (ONE TOUCH 4-30 Dx E11.65 ity of DELICA) 33 00:00: [facility] [place] [facility] 00 Medical Branch gabapentin 2020-0 Yes [id number] 600mg Take 1 [facility] 600 mg 4-30 tablet by ity of tablet 00:00: mouth 2 (two) Medical times Branch daily. lisinopriL 0 Yes [id number] 2.5mg Take 1 [facility] 2.5 mg 4-30 tablet by ity of tablet 00:00: mouth 00 daily. Medical Branch insulin 0 Yes [id number] 35U inject 35 [facility] degludec 4-30 Units ity of (TRESIBA 00:00: under the [facility] s FLEXTOUCH 00 skin 2 Medical U-100) 100 (two) Branch unit/mL (3 times mL) InPn daily. atorvastati 0 Yes 40mg Take 1 Univ ers n 40 mg 4-30 tablet by ity of tablet 00:00: mouth at [place] 00 bedtime. Medical Branch fenofibrate 2020-0 Yes 134mg Take 1 Uni vers micronized 4-30 capsule by ity of 134 mg 00:00: mouth [place] capsule 00 daily. Medical Branch metFORMIN 2020-0 Yes [id number] 1000mg Take 1 [facility] 1,000 mg 4-30 tablet by ity of tablet 00:00: mouth 2 [place] (two) Medical times Branch daily with meals. blood sugar 0 Yes [id number] Use daily [facility] diagnostic 4-30 Dx E11.65 ity of (ONETOUCH 00:00: [place] VERIO TEST 00 Medical STRIPS) Branch strip lancets 2020-0 Yes [id number] Use daily [facility] (ONE TOUCH 4-30 Dx E11.65 ity of DELICA) 33 00:00: [facility] 00 Medical Branch gabapentin 2020-0 Yes [id number] 600mg Take 1 [facility] 600 mg 4-30 tablet by ity of tablet 00:00: mouth 2 [place] (two) Medical times Branch daily. lisinopriL Yes [id number] 2.5mg Take 1 [facility] 2.5 mg 4-30 tablet by ity of tablet 00:00: mouth [place] 00 daily. Medical Branch insulin Yes [id number] 35U inject 35 [facility] degludec 4-30 Units ity of (TRESIBA 00:00: under the [place] FLEXTOUCH 00 skin 2 Medical U-100) 100 (two) Branch unit/mL (3 times mL) InPn daily. atorvastati Yes 40mg Take 1 Univ ers n 40 mg 4-30 tablet by ity of tablet 00:00: mouth at [place] 00 bedtime. Medical Branch fenofibrate Yes 134mg Take 1 [facility] vers micronized 4-30 capsule by ity of 134 mg 00:00: mouth [place] capsule 00 daily. Medical Branch metFORMIN Yes [id number] 1000mg Take 1 [facility] 1,000 mg 4-30 tablet by ity of tablet 00:00: mouth 2 [place] 00 (two) Medical times Branch daily with meals. blood sugar Yes [id number] Use daily [facility] diagnostic 4-30 Dx E11.65 ity of (ONETOUCH 00:00: [place] VERIO TEST 00 Medical STRIPS) Branch strip lancets Yes [id number] Use daily [facility] (ONE TOUCH 4-30 Dx E11.65 ity of DELICA) 33 00:00: [place] gauge Misc 00 Medical Branch gabapentin Yes [id number] 600mg Take 1 [facility] 600 mg 4-30 tablet by ity of tablet 00:00: mouth 2 [place] 00 (two) Medical times Branch daily. lisinopriL Yes [id number] 2.5mg Take 1 [facility] 2.5 mg 4-30 tablet by ity of tablet 00:00: mouth [place] 00 daily. Medical Branch insulin Yes [id number] 35U inject 35 [facility] degludec 4-30 Units ity of (TRESIBA 00:00: [place] FLEXTOUCH 00 skin 2 Medical U-100) 100 (two) Branch unit/mL (3 times mL) InPn daily. atorvastati Yes 40mg Take 1 Univ ers n 40 mg 4-30 tablet by ity of tablet 00:00: mouth at [place] 00 bedtime. Medical Branch fenofibrate Yes 134mg Take 1 [facility] vers micronized 4-30 capsule by ity of 134 mg 00:00: mouth [place] capsule 00 daily. Medical Branch metFORMIN Yes [id number] 1000mg Take 1 [facility] 1,000 mg 4-30 tablet by ity of tablet 00:00: mouth 2 [place] 00 (two) Medical times Branch daily with meals. blood sugar Yes [id number] Use daily [facility] diagnostic 4-30 Dx E11.65 ity of (ONETOUCH 00:00: [place] VERIO TEST 00 Medical STRIPS) Branch strip lancets Yes [id number] Use daily [facility] (ONE TOUCH 4-30 Dx E11.65 ity of DELICA) 33 00:00: [place] gauge Misc 00 Medical Branch gabapentin Yes [id number] 600mg Take 1 [facility] 600 mg 4-30 tablet by ity of tablet 00:00: mouth 2 [place] 00 (two) Medical times Branch daily. lisinopriL Yes [id number] 2.5mg Take 1 [facility] 2.5 mg 4-30 tablet by ity of tablet 00:00: mouth [place] 00 daily. Medical Branch glimepiride No 1mg 4 mg tablet 4-10 00:00: 00 ProAir HFA 0 No 12mcg/a 90 3-19 ctuatio mcg/actuati 00:00: n on aerosol 00 inhaler Victoza No (18 3-Christofer 0.6 3-18 mg/3 mg/0.1 mL 00:00: mL) (18 mg/3 00 mL) subcutaneou s pen injector Victoza No (18 3-Christofer 0.6 3-18 mg/3 mg/0.1 mL 00:00: mL) (18 mg/3 00 mL) subcutaneou s pen injector Tresiba 0 No 30(3 FlexTouch 3-18 mL) U-100 00:00: insulin 100 00 unit/mL (3 mL) subcutaneou s pen hydrochloro No 1mg thiazide 25 3-18 mg tablet 00:00: 00 lisinopril 2021-0 No 1mg 5 mg tablet 3-18 00:00: 00 glimepiride 1-0 No 1mg 2 mg tablet 3-18 00:00: 00 metformin 1-0 No 1mg 1,000 mg 3-18 tablet 00:00: 00 hydrochloro 1-0 No 1mg thiazide 25 3-16 mg tablet 00:00: 00 metformin 1-0 No 1mg 1,000 mg 3-16 tablet 00:00: 00 glimepiride 1-0 No 1mg 2 mg tablet 3-16 00:00: 00 atorvastati 1-0 No 1mg n 40 mg 3-16 tablet 00:00: 00 gabapentin 1-0 No 1mg 600 mg 3-16 tablet 00:00: 00 fluconazole 1-0 No mg 150 mg 1-28 tablet 00:00: 00 metronidazo 1-0 No 1mg le 500 mg 1-28 tablet 00:00: 00 Macrobid 2020-0 No 1mg 100 mg 1-28 capsule 00:00: 00 Victoza 2019-1 No (18 3-Christofer 0.6 2-23 mg/3 mg/0.1 mL 00:00: mL) (18 mg/3 00 mL) subcutaneou s pen injector Tresiba 2019-1 No 30(3 FlexTouch 2-23 mL) U-100 00:00: insulin 100 00 unit/mL (3 mL) subcutaneou s pen hydrochloro 2019-1 No 1mg thiazide 25 2-23 mg tablet 00:00: 00 glimepiride 2019-1 No 1mg 2 mg tablet 2-23 00:00: 00 metformin 2019-1 No 1mg 1,000 mg 2-23 tablet 00:00: 00 atorvastati 2019-1 No 1mg n 40 mg 2-23 tablet 00:00: 00 gabapentin 2020-1 No 1mg 600 mg 2-23 tablet 00:00: 00 lisinopril 2019-1 No 1mg 5 mg tablet 2-04 00:00: 00 glimepiride 2019-1 No 1mg 1 mg tablet 2-04 00:00: 00 metformin 2019-1 No 1mg 1,000 mg 2-04 tablet 00:00: 00 gabapentin 2019-1 No 1mg 600 mg 2-04 tablet 00:00: 00 Bactrim DS 2019-1 No 1mg 800 mg-160 1-05 mg tablet 00:00: 00 Pyridium 2019-1 No 1mg 100 mg 1-05 tablet 00:00: 00 hydrochloro 2020-1 No 1mg thiazide 25 0-13 mg tablet 00:00: 00 lisinopril 2020-1 No 1mg 5 mg tablet 0-13 00:00: 00 metformin 2020-1 No 1mg 1,000 mg 0-13 tablet 00:00: 00 glimepiride 2019-1 No 1mg 1 mg tablet 013 00:00: 00 atorvastati 2019-1 No 1mg n 40 mg 0-13 tablet 00:00: 00 gabapentin 2019-1 No 1mg 600 mg 0-13 tablet 00:00: 00 hydrochloro 2020-0 No 1mg thiazide 25 8-31 mg tablet 00:00: 00 lisinopril 2020-0 No 1mg 5 mg tablet 8 00:00: 00 hydrochloro 2020-0 No 1mg thiazide 25 8-31 mg tablet 00:00: 00 lisinopril 2020-0 No 1mg 5 mg tablet 8 00:00: 00 metformin 2020-0 No 1mg 1,000 mg 8-31 tablet 00:00: 00 glimepiride 2020-0 No 1mg 1 mg tablet 03-10 00:00: 00 metformin 2020-0 No 1mg 1,000 mg 8-31 tablet 00:00: 00 glimepiride 2020-0 No 1mg 1 mg tablet 03-10 00:00: 00 atorvastati 2020-0 No 1mg n 40 mg 8-31 tablet 00:00: 00 atorvastati 2020-0 No 1mg n 40 mg 8-31 tablet 00:00: 00 gabapentin 2020-0 No 1mg 600 mg 8-31 tablet 00:00: 00 gabapentin 2020-0 No 1mg 600 mg 8-31 tablet 00:00: 00 Xenical 120 2020-0 No 1mg mg capsule 03-10 00:00: 00 Victoza 2020-0 No (18 3-Christofer 0.6 7-27 mg/3 mg/0.1 mL 00:00: mL) (18 mg/3 00 mL) subcutaneou s pen injector Tresiba 2020-0 No 30(3 FlexTouch 7-27 mL) U-100 00:00: insulin 100 00 unit/mL (3 mL) subcutaneou s pen hydrochloro 2020-0 No 1mg thiazide 25 7-18 mg tablet 00:00: 00 glimepiride 2020-0 No 1mg 1 mg tablet 7-18 00:00: 00 metformin 2020-0 No 1mg 1,000 mg 7-18 tablet 00:00: 00 atorvastati 2020-0 No 1mg n 40 mg 7-18 tablet 00:00: 00 amoxicillin 2020-0 No 1mg 875 6-13 mg-potassiu 00:00: m 00 clavulanate 125 mg tablet Victoza 2020-0 No (18 3-Christofer 0.6 6-10 mg/3 mg/0.1 mL 00:00: mL) (18 mg/3 00 mL) subcutaneou s pen injector Victoza 2020-0 No (18 3-Christofer 0.6 6-10 mg/3 mg/0.1 mL 00:00: mL) (18 mg/3 00 mL) subcutaneou s pen injector Tresiba 2020-0 No 30(3 FlexTouch 6-10 mL) U-100 00:00: insulin 100 00 unit/mL (3 mL) subcutaneou s pen Tresiba 2020-0 No 30(3 FlexTouch 6-10 mL) U-100 00:00: insulin 100 00 unit/mL (3 mL) subcutaneou s pen lisinopril 2020-0 No 1mg 5 mg tablet 6-10 00:00: 00 hydrochloro 2020-0 No 1mg thiazide 25 6-10 mg tablet 00:00: 00 hydrochloro 2020-0 No 1mg thiazide 25 6-10 mg tablet 00:00: 00 lisinopril 2020-0 No 1mg 5 mg tablet 6-10 00:00: 00 metformin 2020-0 No 1mg 1,000 mg 6-10 tablet 00:00: 00 glimepiride 2020-0 No 1mg 1 mg tablet 6-10 00:00: 00 metformin 2020-0 No 1mg 1,000 mg 6-10 tablet 00:00: 00 glimepiride 2020-0 No 1mg 1 mg tablet 6-10 00:00: 00 atorvastati 2020-0 No 1mg n 40 mg 6-10 tablet 00:00: 00 atorvastati 2020-0 No 1mg n 40 mg 6-10 tablet 00:00: 00 gabapentin 2020-0 No 1mg 600 mg 6-10 tablet 00:00: 00 gabapentin 2020-0 No 1mg 600 mg 6-10 tablet 00:00: 00 lisinopril 2020-0 No 1mg 5 mg tablet 5-12 00:00: 00 Ozempic 2020-0 No mg(2 0.25 mg or 3-30 mg/1.5 0.5 mg (2 00:00: mL) mg/1.5 mL) 00 subcutaneou s pen injector FREESTYLE 2020-0 Yes [id number] 1{each} 1 Each [facility] BRENDA 14 3-03 every 14 ity of DAY SENSOR 00:00: (fourteen) [place] 00 days. Medical Branch FREESTYLE 2020-0 Yes [id number] 1{each} 1 Each [facility] BRENDA 14 3-03 daily. ity of DAY READER 00:00: [facility] [place] 00 Medical Branch FREESTYLE 2020-0 Yes [id number] 1{each} 1 Each [facility] BRENDA 14 3-03 every 14 ity of DAY SENSOR 00:00: (fourteen) [place] Kit 00 days. Medical Branch FREESTYLE 2020-0 Yes [id number] 1{each} 1 Each [facility] BRENDA 14 3-03 daily. ity of DAY READER 00:00: [facility] [place] 00 Medical Branch FREESTYLE 2020-0 Yes [id number] 1{each} 1 Each [facility] BRENDA 14 3-03 every 14 ity of DAY SENSOR 00:00: (fourteen) [place] Kit 00 days. Medical Branch FREESTYLE 2020-0 Yes [id number] 1{each} 1 Each [facility] BRENDA 14 3-03 daily. ity of DAY READER 00:00: [facility] [place] 00 Medical Branch FREESTYLE 2020-0 Yes [id number] 1{each} 1 Each [facility] BRENDA 14 3-03 every 14 ity of DAY SENSOR 00:00: (fourteen) [place] Kit 00 days. Medical Branch FREESTYLE 2020-0 Yes [id number] 1{each} 1 Each [facility] BRENDA 14 3-03 daily. ity of DAY READER 00:00: [facility] [place] 00 Medical Branch FREESTYLE 2020-0 Yes [id number] 1{each} 1 Each [facility] BRENDA 14 3-03 every 14 ity of DAY SENSOR 00:00: (fourteen) [place] Kit 00 days. Medical Branch FREESTYLE 2020-0 Yes [id number] 1{each} 1 Each [facility] BRENDA 14 3-03 daily. ity of DAY READER 00:00: [facility] [place] 00 Medical Branch FREESTYLE 2020-0 Yes [id number] 1{each} 1 Each [facility] BRENDA 14 3-03 every 14 ity of DAY SENSOR 00:00: (fourteen) [place] Kit 00 days. Medical Branch FREESTYLE 2020-0 Yes [id number] 1{each} 1 Each [facility] BRENDA 14 3-03 daily. ity of DAY READER 00:00: [facility] [place] 00 Medical Branch Ozempic 2020-0 No mg(2 0.25 mg or 2-19 mg/1.5 0.5 mg (2 00:00: mL) mg/1.5 mL) 00 subcutaneou s pen injector lisinopril 2019-0 No 1mg 5 mg tablet 2-19 00:00: 00 metformin 2020-0 No 1mg 1,000 mg 2-19 tablet 00:00: 00 atorvastati 2020-0 No 1mg n 40 mg 2-19 tablet 00:00: 00 Diflucan 2020-0 No 1mg 150 mg 1-16 tablet 00:00: 00 Flagyl 500 2018-07 No 1mg mg tablet 2-30 00:00: 00 traMADol 2018- Yes [id number] 50mg Take 1 Uni vers (ULTRAM) 50 2-28 tablet by ity of mg tablet 00:00: mouth [place] 00 every 6 Medical (six) Branch hours as needed for Pain (scale 7-10). ondansetron 2018-07 Yes [id number] 4mg Take 1 [facility] (ZOFRAN) 4 2-28 tablet by ity of mg tablet 00:00: mouth [place] 00 every 8 Medical (eight) Branch hours as needed for Nausea and Vomiting (N/V). ondansetron 2018-07 Yes [id number] 4mg Take 1 Univers (ZOFRAN) 4 2-28 tablet by ity of mg tablet 00:00: mouth [place] [id number] every 8 Medical (eight) Branch hours as needed for Nausea and Vomiting (N/V). ondansetron 2018-07 Yes [id number] 4mg Take 1 [facility] (ZOFRAN) 4 2-28 tablet by ity of mg tablet 00:00: mouth [place] 00 every 8 Medical (eight) Branch hours as needed for Nausea and Vomiting (N/V). ondansetron 2018-07 Yes [id number] 4mg Take 1 [facility] (ZOFRAN) 4 2-28 tablet by ity of mg tablet 00:00: mouth [place] 00 every 8 Medical (eight) Branch hours as needed for Nausea and Vomiting (N/V). ondansetron 2018-07 Yes [id number] 4mg Take 1 [facility] (ZOFRAN) 4 2-28 tablet by ity of mg tablet 00:00: mouth [place] 00 every 8 Medical (eight) Branch hours as needed for Nausea and Vomiting (N/V). ondansetron 2018-07 Yes [id number] 4mg Take 1 [facility] (ZOFRAN) 4 2-28 tablet by ity of mg tablet 00:00: mouth [place] 00 every 8 Medical (eight) Branch hours as needed for Nausea and Vomiting (N/V). traMADol 2018-07- No [id number] 50mg Take 1 [facility] (ULTRAM) 50 2-28 11-20 tablet by it y of mg tablet 00:00: 00:00 mouth [place] 00 :00 every 6 Medical (six) Branch hours as needed for Pain (scale 7-10). ibuprofen 2018-07 No 1mg 800 mg 2-19 tablet 00:00: 00 Contrave 8 2018-07 No 1mg mg-90 mg 2-19 tablet,exte 00:00: nded 00 release triamcinolo 2018-07 No 1% ne 0-16 acetonide 00:00: 0.1 % 00 topical ointment ketoconazol 2018-07 No 1% e 2 % 0-16 shampoo 00:00: 00 Xenical 120 2018-07 No 1mg mg capsule 0-16 00:00: 00 Xenical 120 2018-07 No 1mg mg capsule 0-16 00:00: 00 Polytrim 2018-07 No 11 10,000 0-14 mg/mL unit-1 00:00: mg/mL eye 00 drops metronidazo 2018-07 No 1mg le 500 mg 0-11 tablet 00:00: 00 metronidazo 2018-07 No 1mg le 500 mg 0-03 tablet 00:00: 00 clotrimazol 2018- No 1% e 1 % 0-01 vaginal 00:00: cream 00 atorvastati 2018-0 No 1mg n 40 mg 9-26 tablet 00:00: 00 lisinopril 2018-0 No 1mg 5 mg tablet 04-04 00:00: 00 metformin 2018-0 No 1mg 1,000 mg 9-25 tablet 00:00: 00 propranolol 2018-0 No 1mg 20 mg 9-17 tablet 00:00: 00 bupropion 2018-0 No 1mg HCl SR 150 9-17 mg 00:00: tablet,12 00 hr sustained-r elease mirtazapine 2018-0 No 1mg 45 mg 9-17 tablet 00:00: 00 hydroxyzine 2018-0 No 1mg pamoate 50 9-17 mg capsule 00:00: 00 hydrOXYzine 0 Yes [id number] 10mg Take 1 Univers 10 mg 9-13 tablet by ity of tablet 00:00: mouth [place] 00 every 6 Medical (six) Branch hours. hydrOXYzine Yes [id number] 10mg Take 1 [facility] 10 mg 9-13 tablet by ity of tablet 00:00: mouth [place] 00 every 6 Medical (six) Branch hours. hydrOXYzine Yes [id number] 10mg Take 1 [facility] 10 mg 9-13 tablet by ity of tablet 00:00: mouth [place] 00 every 6 Medical (six) Branch hours. hydrOXYzine Yes [id number] 10mg Take 1 Univers 10 mg 9-13 tablet by ity of tablet 00:00: mouth [place] 00 every 6 Medical (six) Branch hours. hydrOXYzine Yes [id number] 10mg Take 1 Univers 10 mg 9-13 tablet by ity of tablet 00:00: mouth [place] 00 every 6 Medical (six) Branch hours. hydrOXYzine Yes [id number] 10mg Take 1 Univers 10 mg 9-13 tablet by ity of tablet 00:00: mouth [place] 00 every 6 Medical (six) Branch hours. mirtazapine 2018-0 No 1mg 45 mg 8-05 tablet 00:00: 00 propranolol 2018-0 No 1mg 20 mg 7-15 tablet 00:00: 00 bupropion 2018-0 No 1mg HCl SR 150 7-03 mg 00:00: tablet,12 00 hr sustained-r elease fluconazole 2019-0 No 1mg 150 mg 6-11 tablet 00:00: 00 sulfamethox 2019-0 No 1mg azole 800 6-11 mg-trimetho 00:00: prim 160 mg 00 tablet mirtazapine 2019-0 No 1mg 45 mg 6-11 tablet 00:00: 00 trazodone 2019-0 No 12mg 100 mg 6-11 tablet 00:00: 00 hydroxyzine 2019-0 No 1mg pamoate 50 6-11 mg capsule 00:00: 00 bupropion 2019-0 No 1mg HCl SR 150 6-05 mg 00:00: tablet,12 00 hr sustained-r elease propranolol 2019-0 No 1mg 20 mg 6-05 tablet 00:00: 00 trazodone 2019-0 No 12mg 100 mg 6-05 tablet 00:00: 00 lisinopril 2019-0 No 1mg 5 mg tablet 5-22 00:00: 00 fluconazole 2019-0 No 1mg 150 mg 5-22 tablet 00:00: 00 metformin 2019-0 No 1mg 1,000 mg 5-22 tablet 00:00: 00 lisinopril 2019-0 No 1mg 5 mg tablet 2-04 00:00: 00 metformin 2019-0 No 1mg 1,000 mg 2-04 tablet 00:00: 00 cephalexin 2019-0 No 1mg 500 mg 2-04 capsule 00:00: 00 lisinopril 2018-1 No 1mg 5 mg tablet - 00:00: 00 Zofran 4 mg 2018-1 No 1mg tablet - 00:00: 00 metformin 2018-1 No 1mg 1,000 mg 1-13 tablet 00:00: 00 Lexapro 20 2018-0 No 1mg mg tablet 04-06 00:00: 00 Abilify 5 2018-0 No 1mg mg tablet 04-06 00:00: 00 trazodone 2018-0 No 12mg 100 mg 9-27 tablet 00:00: 00 trazodone 2018-0 No 12mg 100 mg 9-27 tablet 00:00: 00 Effexor XR 2018-0 No 1mg 75 mg 9- capsule,ext 00:00: ended 00 release Claritin 10 2018-0 No 1mg mg tablet 9-06 00:00: 00 amoxicillin 2018-0 No 1mg 875 mg 9-06 tablet 00:00: 00 Lexapro 20 2018-0 No 15mg mg tablet 8-16 00:00: 00 Abilify 5 2018-0 No 1mg mg tablet 8-16 00:00: 00 trazodone 2018-0 No 12mg 100 mg 8-16 tablet 00:00: 00 Lexapro 20 2018-0 No 1mg mg tablet 8-10 00:00: 00 Abilify 5 2018-0 No 1mg mg tablet 8-10 00:00: 00 trazodone 2018-0 No 12mg 100 mg 8-10 tablet 00:00: 00 metformin 2018-0 No 1mg 1,000 mg 6-28 tablet 00:00: 00 Abilify 5 2018-0 No 1mg mg tablet 6-14 00:00: 00 Lexapro 20 2018-0 No 1mg mg tablet 6-14 00:00: 00 trazodone 2018-0 No 12mg 100 mg 6-14 tablet 00:00: 00 Vistaril 25 2018-0 No 1mg mg capsule 6-14 00:00: 00 Lexapro 20 2018-0 No 1mg mg tablet 5-21 00:00: 00 Abilify 5 2018-0 No 1mg mg tablet 5-21 00:00: 00 Vistaril 25 2018-0 No 1mg mg capsule 5-21 00:00: 00 Abilify 5 2018-0 No 1mg mg tablet 4-05 00:00: 00 Lexapro 20 2018-0 No 1mg mg tablet 4-05 00:00: 00 trazodone 2018-0 No 12mg 100 mg 4-05 tablet 00:00: 00 Vistaril 25 2018-0 No 1mg mg capsule 4-05 00:00: 00 metformin 2018-0 No 1mg 1,000 mg 3-22 tablet 00:00: 00 loratadine 2018-0 No 1mg 10 mg 3-05 tablet 00:00: 00 promethazin 2018-0 No 10mg/5 e-DM 6.25 3-05 mL mg-15 mg/5 00:00: mL syrup 00 trazodone 2018-0 No 12mg 100 mg 1-18 tablet 00:00: 00 Abilify 5 2018-0 No 1mg mg tablet 1-11 00:00: 00 Lexapro 20 2018-0 No 1mg mg tablet 1-11 00:00: 00 Vistaril 25 2018-0 No 1mg mg capsule 1-11 00:00: 00 Abilify 5 2018-0 No 1mg mg tablet 1-08 00:00: 00 Lexapro 20 2018-0 No 1mg mg tablet 1-08 00:00: 00 promethazin 2017-1 No 10mg/5 e-DM 6.25 2-04 mL mg-15 mg/5 00:00: mL syrup 00 prednisone 2017-1 No 1mg 20 mg 2-04 tablet 00:00: 00 loratadine 2017-1 No 1mg 10 mg 2-04 tablet 00:00: 00 metformin 2017-1 No 1mg 1,000 mg 2-04 tablet 00:00: 00 Abilify 5 2017-0 No 1mg mg tablet 9 00:00: 00 Lexapro 20 2017-0 No 1mg mg tablet 9 00:00: 00 buspirone 2017-0 No 1mg 15 mg 9-28 tablet 00:00: 00 trazodone 2017-0 No 2mg 100 mg 9-28 tablet 00:00: 00 Abilify 5 2017-0 No 1mg mg tablet 9 00:00: 00 Lexapro 20 2017-0 No 1mg mg tablet 914 00:00: 00 buspirone 2017-0 No 1mg 15 mg 9-14 tablet 00:00: 00 trazodone 2017-0 No 2mg 100 mg 9-14 tablet 00:00: 00 Abilify 5 2017-0 No 1mg mg tablet 7- 00:00: 00 Lexapro 20 2017-0 No 1mg mg tablet 7- 00:00: 00 buspirone 2017-0 No 1mg 15 mg 7-27 tablet 00:00: 00 trazodone 2017-0 No 2mg 100 mg 7-27 tablet 00:00: 00 metformin 2017-0 No 1mg 1,000 mg 7-17 tablet 00:00: 00 Abilify 5 2017-0 No 1mg mg tablet 6- 00:00: 00 Lexapro 20 2017-0 No 1mg mg tablet 6- 00:00: 00 buspirone 2017-0 No 1mg 15 mg 6-22 tablet 00:00: 00 trazodone 2017-0 No 2mg 100 mg 6-22 tablet 00:00: 00 Lexapro 20 2017-0 No 15mg mg tablet 5-18 00:00: 00 Abilify 5 2017-0 No 1mg mg tablet 5-18 00:00: 00 buspirone 2017-0 No 1mg 10 mg 5-18 tablet 00:00: 00 trazodone 2017-0 No 1mg 150 mg 5-18 tablet 00:00: 00 metformin 2017-0 No 1mg 1,000 mg 5-10 tablet 00:00: 00 metformin 2017-0 No 1mg 1,000 mg 5-01 tablet 00:00: 00 Abilify 5 2017-0 No 1mg mg tablet 4-11 00:00: 00 Lexapro 20 2017-0 No 15mg mg tablet 4-11 00:00: 00 trazodone 2017-0 No 1mg 150 mg 4-11 tablet 00:00: 00 Lexapro 20 2017-0 No 15mg mg tablet 3-07 00:00: 00 Abilify 5 2017-0 No 1mg mg tablet 3-07 00:00: 00 trazodone 2017-0 No 1mg 150 mg 3-07 tablet 00:00: 00 Lexapro 20 2017-0 No 15mg mg tablet 2-03 00:00: 00 Lexapro 20 2017-0 No 15mg mg tablet 1-12 00:00: 00 Abilify 5 2017-0 No 1mg mg tablet 1-12 00:00: 00 trazodone 2017-0 No 1mg 150 mg 1-12 tablet 00:00: 00 Novolin R 2017-0 No 1unit/m 100 unit/mL 1-05 L injection 00:00: solution 00 Augmentin 2017-0 No 1mg 500 mg-125 1-05 mg tablet 00:00: 00 Abilify 5 2015-1 No 1mg mg tablet 2-08 00:00: 00 Abilify 5 2015-1 No 1mg mg tablet 2-08 00:00: 00 Lexapro 20 2015-1 No 1mg mg tablet 2-08 00:00: 00 trazodone 2015-1 No 1mg 150 mg 2-08 tablet 00:00: 00 hydroxyzine 2016-1 No 12mg HCl 25 mg 2-08 tablet 00:00: 00 trazodone 2016-1 No 1mg 150 mg 2-06 tablet 00:00: 00 Lexapro 20 2015-1 No 1mg mg tablet 1-03 00:00: 00 trazodone 2016-1 No 1mg 150 mg 1-03 tablet 00:00: 00 hydroxyzine 2016-1 No 12mg HCl 25 mg 1-03 tablet 00:00: 00 Lexapro 20 2015-1 No 1mg mg tablet 0-11 00:00: 00 trazodone 2016-1 No 51mg 100 mg 0-11 tablet 00:00: 00 paroxetine 2016-0 No 1mg 20 mg 9-26 tablet 00:00: 00 simvastatin 2016-0 No 1mg 20 mg 9-09 tablet 00:00: 00 metformin 2016-0 No 1mg 1,000 mg 9-09 tablet 00:00: 00 buspirone 2016-0 No 1mg 7.5 mg 9-09 tablet 00:00: 00 hydroxyzine 2016-0 No 12mg HCl 25 mg 9-09 tablet 00:00: 00 hydroxyzine 2016-0 No 12mg HCl 25 mg 7-27 tablet 00:00: 00 amoxicillin 2016-0 No 1mg 500 mg 7-27 capsule 00:00: 00 Voltaren 1 2016-0 No 1% % topical 6-11 gel 00:00: 00 cyclobenzap 2016-0 No 1mg rine 10 mg 6-11 tablet 00:00: 00 hydroxyzine 2016-0 No 12mg HCl 25 mg 6-11 tablet 00:00: 00 amoxicillin 2016-0 No 1mg 500 mg 6-02 tablet 00:00: 00 Voltaren 1 2016-0 No 1% % topical 5-13 gel 00:00: 00 cyclobenzap 2016-0 No 1mg rine 10 mg 5-13 tablet 00:00: 00 nystatin 2016-0 No 1unit/g 100,000 5-07 robert unit/gram 00:00: topical 00 powder lisinopril 2016-0 No 1mg 5 mg tablet 5-07 00:00: 00 metformin 2016-0 No 1mg 1,000 mg 5-07 tablet 00:00: 00 simvastatin 2016-0 No 1mg 20 mg 5-07 tablet 00:00: 00 Vistaril 50 2016-0 No 1mg mg capsule 10-16 00:00: 00 lisinopril 2016-0 No 1mg 5 mg tablet 3- 00:00: 00 metformin 2016-0 No 1mg 1,000 mg 3-19 tablet 00:00: 00 Effexor XR 2016-0 No 1mg 150 mg 1-28 capsule,ext 00:00: ended 00 release doxepin 25 2015-0 No 13mg mg capsule -28 00:00: 00 doxepin 10 2015-0 No 12mg mg capsule 1-14 00:00: 00 Effexor XR 2016-0 No mg 75 mg 1-14 capsule,ext 00:00: ended 00 release glimepiride 2016-0 No 1mg 4 mg tablet 1- 00:00: 00 metformin 2016-0 No 1mg 1,000 mg 1-04 tablet 00:00: 00 simvastatin 2016-0 No 1mg 20 mg 1-04 tablet 00:00: 00 simvastatin 2016-0 No 1mg 20 mg 1-04 tablet 00:00: 00 Vistaril 50 2014-1 No 1mg mg capsule 2- 00:00: 00 Paxil 20 mg 2015-1 No 1mg tablet 1- 00:00: 00 Paxil 20 mg 2015-0 No 1mg tablet 9 00:00: 00 Paxil 20 mg 2015-0 No 1mg tablet 03-14 00:00: 00 hydrocodone 2015-0 No mg 7.5 8-15 mg-acetamin 00:00: ophen 325 00 mg tablet lisinopril 2014-0 No 1mg 5 mg tablet 7 00:00: 00 glimepiride 2015-0 No 1mg 4 mg tablet 7 00:00: 00 metformin 2015-0 No 1mg 1,000 mg 7-08 tablet 00:00: 00 Januvia 100 2015-0 No 1mg mg tablet 5- 00:00: 00 paroxetine 2015-0 No 1mg 10 mg 3-17 tablet 00:00: 00 metformin 2015-0 No 1mg 1,000 mg 3-17 tablet 00:00: 00 glimepiride 2015-0 No 1mg 4 mg tablet 3-17 00:00: 00 fluconazole 2015-0 No 1mg 150 mg 3-17 tablet 00:00: 00 lisinopril 2015-0 No 1mg 5 mg tablet -17 00:00: 00 lisinopril No 1mg 5 mg tablet 08-07 00:00: 00 metformin 2014-0 No 1mg 1,000 mg -28 tablet 00:00: 00 glimepiride No 1mg 4 mg tablet 08-07 00:00: 00 metformin 2014- No 1mg 1,000 mg - tablet 00:00: 00 Vistaril 50 No 1mg mg capsule 08-07 00:00: 00 Vistaril 50 No 1mg mg capsule 08-07 00:00: 00 Lancets & 2013- Yes Univers Blood 2-14 ity of Glucose 00:00: [place] Strips ( Medical TOUCH [facility]- Yes [facility] Blood 2-14 ity of Glucose 00:00: [place] Strips ( Medical TOUCH [facility] COMBO) [facility] & 2012- Yes Univers Blood 2-14 ity of Glucose 00:00: [place] Strips ( Medical TOUCH Branch COMBO) [facility] & 2012- Yes Univers Blood 2-14 ity of Glucose 00:00: [place] Strips (ONE 00 Medical TOUCH Branch COMBO) [facility] & 2012- Yes Univers Blood 2-14 ity of Glucose 00:00: [place] Strips ( 00 Medical TOUCH Branch COMBO) [facility] & 2012- Yes Univers Blood 2-14 ity of Glucose 00:00: [place] Strips ( 00 Medical TOUCH Branch COMBO) [facility] Blood-Gluco Yes Univer s se Meter 6-05 [...] Immunizations Ordered Filled Immunization Date Status Comments Sour e Immunization Name Name Leonarda FRAZIERIDSteff 2021-07-24 Completed Vaccine 00:00:00 Pneumococcal 2020-05-21 Completed University o f Polysaccharide, 00:00:00 [place] [facility] PPSV23 (PNEUMOVAX) Branch TDAP 2020-05-21 Completed University of 00:00:00 [facility] Pneumococcal 2020-05-21 Completed University o f Polysaccharide, 00:00:00 [place] [facility] PPSV23 (PNEUMOVAX) Branch TDAP 2020-05-21 Completed University of 00:00:00 [facility] Pneumococcal 2020-05-21 Completed University o f Polysaccharide, 00:00:00 [facility] ical PPSV23 (PNEUMOVAX) Branch TDAP 2020-05-21 Completed University of 00:00:00 [facility] Pneumococcal 2020-05-21 Completed University o f Polysaccharide, 00:00:00 [facility] ical PPSV23 (PNEUMOVAX) Branch TDAP 2020-05-21 Completed University of 00:00:00 [facility] Pneumococcal 2020-05-21 Completed University o f Polysaccharide, 00:00:00 [facility] ical PPSV23 (PNEUMOVAX) Branch TDAP 2020-05-21 Completed University of 00:00:00 [facility] Pneumococcal 2020-05-21 Completed University o f Polysaccharide, 00:00:00 [facility] ical PPSV23 (PNEUMOVAX) Branch TDAP 2020-05-21 Completed University of 00:00:00 [facility] MMR 2013-07-25 Completed University of 00:00:00 [facility] MMR 2013-07-25 Completed University of 00:00:00 [facility] MMR 2013-07-25 Completed University of 00:00:00 [facility] MMR 2013-07-25 Completed University of 00:00:00 [facility] MMR 2013-07-25 Completed University of 00:00:00 [facility] MMR 2013-07-25 Completed University of 00:00:00 [facility] TDAP 2013-05-21 Completed University of 00:00:00 [facility] TDAP 2013-05-21 Completed University of 00:00:00 [facility] TDAP 2013-05-21 Completed University of 00:00:00 [place] [facility] TDAP 2013-05-21 Completed [facility] of 00:00:00 [place] [facility] TDAP 2013-05-21 Completed University of 00:00:00 [place] [facility] TDAP 2013-05-21 Completed University of 00:00:00 [facility] Influenza Virus 2013-03-19 Completed Universit y of Vaccine 00:00:00 [facility] Influenza Virus 2013-03-19 Completed Universit y of Vaccine 00:00:00 [facility] Influenza Virus 2013-03-19 Completed Universit y of Vaccine 00:00:00 [facility] Influenza Virus 2013-03-19 Completed Universit y of Vaccine 00:00:00 [facility] Influenza Virus 2013-03-19 Completed Universit y of Vaccine 00:00:00 [facility] Influenza Virus 2013-03-19 Completed Universit y of Vaccine 00:00:00 [facility] Rubella 2008-04-17 Completed University of 00:00:00 [facility] Rubella 2008-04-17 Completed University of 00:00:00 [facility] Rubella 2008-04-17 Completed University of 00:00:00 [facility] Rubella 2008-04-17 Completed University of 00:00:00 [facility] Rubella 2008-04-17 Completed University of 00:00:00 [facility] Rubella 2008-04-17 Completed University of 00:00:00 [facility] Td 2004-07-11 Completed University of 00:00:00 [facility] Td 2004-07-11 Completed University of 00:00:00 [facility] Td 2004-07-11 Completed University of 00:00:00 [facility] Td 2004-07-11 Completed University of 00:00:00 [facility] Td 2004-07-11 Completed University of 00:00:00 [facility] Td 2004-07-11 Completed University of 00:00:00 [facility] Vital Signs Vital Name Observation Time Observation Value Comments Source Systolic blood 2021-10-17 02:05:00 117 mm[Hg] Univer sity of pressure [facility] Diastolic blood 2021-10-17 02:05:00 63 mm[Hg] Unive rsity of pressure [facility] Heart rate 2021-10-17 02:05:00 76 /min Universi ty of [facility] Respiratory rate 2021-10-17 02:05:00 18 /min Univ ersity of [place] [facility] Oxygen saturation in 2021-10-17 02:05:00 98 /min University of Arterial blood by [place] [facility] bon[facility] Pulse oximetry Branch Body temperature 2021-10-16 22:30:00 37.33 Lorenza Univ ers[facility] [place] [facility] Body weight 2021-10-16 21:38:00 103.42 kg [facility] [place] [facility] BMI 2021-10-16 21:38:00 37.94 kg/m2 [facility] [place] [facility] Systolic blood 2021-09-22 17:00:00 108 mm[Hg] Univer sity of pressure [place] [facility] Diastolic blood 2021-09-22 17:00:00 77 mm[Hg] Unive rsity of pressure [place] [facility] Heart rate 2021-09-22 17:00:00 90 /min [facility]i ty [facility] [place] [facility] Oxygen saturation in 2021-09-22 17:00:00 97 /min University of Arterial blood by [place] [facility] bonita Pulse oximetry Branch Respiratory rate 2021-09-22 15:00:00 18 /min Univ ersity [facility] [place] [facility] Body temperature 2021-09-22 14:52:00 37.11 Lorenza [facility] [place] [facility] Body weight 2021-09-22 14:52:00 103.42 kg [facility] [place] [facility] BMI 2021-09-22 14:52:00 37.94 kg/m2 [facility] [place] [facility] Systolic blood 2021-06-18 12:00:00 142 mm[Hg] Univer sity of pressure [place] [facility] Diastolic blood 2021-06-18 12:00:00 94 mm[Hg] Unive rsity of pressure [place] [facility] Heart rate 2021-06-18 12:00:00 98 /min [facility] [place] [facility] Body temperature 2021-06-18 12:00:00 36.56 Lorenza [facility] [place] [facility] Respiratory rate 2021-06-18 12:00:00 13 /min [facility] [place] [facility] Oxygen saturation in 2021-06-18 12:00:00 95 /min University of Arterial blood by [place] [facility] bon[facility] Pulse oximetry Branch Body height 2021-06-18 10:37:00 165.1 cm [facility] [place] [facility] Body weight 2021-06-18 10:37:00 107.502 kg Universi ty [facility] BMI 2021-06-18 10:37:00 39.44 kg/m2 Universi ty [facility] Systolic blood 2021-05-31 01:34:00 139 mm[Hg] Univer sity of pressure [facility] Diastolic blood 2021-05-31 01:34:00 90 mm[Hg] Unive rsity of pressure [facility] Heart rate 2021-05-31 01:34:00 112 /min Universi ty [facility] Respiratory rate 2021-05-31 01:34:00 20 /min Univ ersity of [facility] Oxygen saturation in 2021-05-31 01:34:00 98 /min [facility] Arterial blood by [facility] Pulse oximetry Branch Body weight 2021-05-30 21:47:00 107.502 kg Universi [facility] BMI 2021-05-30 21:47:00 40.68 kg/m2 [facility] BP Systolic 2021-11-21 10:47:00 132 mm[Hg] BP Diastolic 2021-11-21 10:47:00 84 mm[Hg] Weight Measured 2021-11-21 10:47:00 237.80 pounds Height Measured 2021-11-21 10:47:00 64.00 inches Body Temperature 2021-11-21 10:47:00 98.20 degrees Heart Rate 2021-11-21 10:47:00 106.00 /min Respiratory Rate 2021-11-21 10:47:00 BP Systolic 2021-10-27 14:47:00 107 mm[Hg] BP Diastolic 2021-10-27 14:47:00 73 mm[Hg] Weight Measured 2021-10-27 14:47:00 235.20 pounds Height Measured 2021-10-27 14:47:00 64.00 inches Body Temperature 2021-10-27 14:47:00 98.00 degrees Heart Rate 2021-10-27 14:47:00 111.00 /min Respiratory Rate 2021-10-27 14:47:00 BP Systolic 2021-10-23 11:11:00 122 mm[Hg] BP Diastolic 2021-10-23 11:11:00 86 mm[Hg] Weight Measured 2021-10-23 11:11:00 232.20 pounds Height Measured 2021-10-23 11:11:00 64.00 inches Body Temperature 2021-10-23 11:11:00 98.20 degrees Heart Rate 2021-10-23 11:11:00 105.00 /min Respiratory Rate 2021-10-23 11:11:00 BP Systolic 2021-10-10 14:15:00 124 mm[Hg] BP Diastolic 2021-10-10 14:15:00 87 mm[Hg] Weight Measured 2021-10-10 14:15:00 234.40 pounds Height Measured 2021-10-10 14:15:00 64.00 inches Body Temperature 2021-10-10 14:15:00 97.80 degrees Heart Rate 2021-10-10 14:15:00 95.00 /min Respiratory Rate 2021-10-10 14:15:00 BP Systolic 2021-10-06 14:05:00 108 mm[Hg] BP Diastolic 2021-10-06 14:05:00 71 mm[Hg] Weight Measured 2021-10-06 14:05:00 239.40 pounds Height Measured 2021-10-06 14:05:00 64.00 inches Body Temperature 2021-10-06 14:05:00 97.30 degrees Heart Rate 2021-10-06 14:05:00 105.00 /min Respiratory Rate 2021-10-06 14:05:00 BP Systolic 2021-07-29 14:28:00 106 mm[Hg] BP Diastolic 2021-07-29 14:28:00 76 mm[Hg] Weight Measured 2021-07-29 14:28:00 235.40 pounds Height Measured 2021-07-29 14:28:00 64.00 inches Body Temperature 2021-07-29 14:28:00 97.30 degrees Heart Rate 2021-07-29 14:28:00 122.00 /min Respiratory Rate 2021-07-29 14:28:00 16.00 /min BP Systolic 2021-07-17 15:47:00 127 mm[Hg] BP Diastolic 2021-07-17 15:47:00 80 mm[Hg] Weight Measured 2021-07-17 15:47:00 250.20 pounds Height Measured 2021-07-17 15:47:00 64.00 inches Body Temperature 2021-07-17 15:47:00 98.30 degrees Heart Rate 2021-07-17 15:47:00 97.00 /min Respiratory Rate 2021-07-17 15:47:00 BP Systolic 2021-06-16 16:26:00 123 mm[Hg] BP Diastolic 2021-06-16 16:26:00 77 mm[Hg] Weight Measured 2021-06-16 16:26:00 241.80 pounds Height Measured 2021-06-16 16:26:00 64.00 inches Body Temperature 2021-06-16 16:26:00 Heart Rate 2021-06-16 16:26:00 109.00 /min Respiratory Rate 2021-06-16 16:26:00 17.00 /min BP Systolic 2021-04-16 13:41:00 BP Diastolic 2021-04-16 13:41:00 Weight Measured 2021-04-16 13:41:00 221.00 pounds Height Measured 2021-04-16 13:41:00 64.00 inches Body Temperature 2021-04-16 13:41:00 Heart Rate 2021-04-16 13:41:00 Respiratory Rate 2021-04-16 13:41:00 BP Systolic 2021-03-23 09:20:00 BP Diastolic 2021-03-23 09:20:00 Weight Measured 2021-03-23 09:20:00 240.00 pounds Height Measured 2021-03-23 09:20:00 64.00 inches Body Temperature 2021-03-23 09:20:00 Heart Rate 2021-03-23 09:20:00 Respiratory Rate 2021-03-23 09:20:00 Procedures Procedure Date / Time Performed Performing Clinician Sour e POCT GLUCOSE 2021-10-17 01:49:00 Beatriz Eduardo [facility] (AUTOMATED) [facility] Branch POCT GLUCOSE(AGE 2021-10-17 00:41:00 Beartiz Eduardo [facility] >30DAYS) Medical Branch POCT GLUCOSE 2021-10-17 00:40:00 Beatriz Eduardo [facility] (AUTOMATED) [facility] BLOOD CULTURE SCREEN 2021-10-16 23:26:00 Beatriz Eduardo [facility] BLOOD CULTURE SCREEN 2021-10-16 23:03:00 Beatriz Eduardo [facility] TROPONIN I 2021-10-16 23:03:00 Beatriz Eduardo [facility] COMP. METABOLIC PANEL 2021-10-16 23:03:00 Beatriz Eduardo [facility] ([id number]) Medical Branch CBC WITH DIFF 2021-10-16 23:03:00 Beatriz Eduardo [facility] URINALYSIS 2021-10-16 23:03:00 Beatriz Eduardo [facility] N-TERMINAL PRO-BNP 2021-10-16 23:03:00 Beatriz Eduardo [facility] LACTIC ACID WHOLE 2021-10-16 23:01:00 Beatriz Eduardo [facility] BLOOD [facility] Branch CT ABDOMEN PELVIS WO 2021-10-16 22:40:13 Beatriz Eduardo [facility] Branch POCT TEST 2021-10-16 22:34:[address] [facility] CONSENT/REFUSAL FOR 2021-10-16 21:34:04 [facility] Branch TREATMENT CT ABDOMEN PELVIS WO 2021-09-22 15:59:44 Jn Gallagher [facility] POCT TEST 2021-09-22 15:18:00 Jn Gallagher [facility] COMP. METABOLIC PANEL 2021-09-22 15:16:00 Jn Gallagher [facility] ([id number]) [facility] Branch CBC WITH DIFF 2021-09-22 15:16:00 Singer [facility] URINALYSIS 2021-09-22 14:58:00 Singer [facility] CONSENT/REFUSAL FOR 2021-09-22 14:47:03 Doctor Unassigned, No [facility] DIAGNOS[facility] AND Name Medical Branch TREATMENT POCT GLUCOSE 2021-06-18 13:04:00 Fozia Jang [facility] (AUTOMATED) Medical Branch CT ABDOMEN PELVIS WO 2021-06-18 12:58:31 Fozia Jang [facility] CONTRAST Medical Branch POCT TEST 2021-06-18 11:06:[address] [facility] CREATINE KINASE 2021-06-18 10:50:00 [place] [facility] COMP. METABOLIC PANEL 2021-06-18 10:50:00 Fozia Jang [facility] ([id number]) Medical Branch CBC WITH DIFF 2021-06-18 10:50:00 Fozia Jang [facility] URINALYSIS 2021-06-18 10:50:00 Fozia Jang [facility] RAPID INFLUENZA A/B 2021-06-18 10:50:[address] [facility] COVID-19 (ID NOW RAPID 2021-06-18 10:50:00 Fozia Jang [facility] TESTING) Medical Branch NOTICE OF PRIVACY 2021-06-18 10:24:00 Doctor Unassigned, No [facility] PRACTICES [facility] [place] CONSENT/REFUSAL FOR 2021-06-18 10:21:45 [facility] Name Medical Branch TREATMENT CT ABDOMEN PELVIS W 2021-05-30 23:52:43 Mary Espinosa [facility] CONTRAST Medical Branch CT HEAD WO CONTRAST 2021-05-30 23:52:13 Mary Espinosa [facility] Medical Branch XR CHEST 1 VW 2021-05-30 22:38:06 Mary Espinosa [place] [facility] Branch XR HAND 3+ VW LEFT 2021-05-30 22:38:06 Mary Espinosa [facility] Medical Branch XR FOREARM 2 VW LEFT 2021-05-30 22:28:[address] [facility] Center CONSENT/REFUSAL FOR 2021-05-30 21:39:04 [facility], [facility] TREAT[facility] 06481 Ecg Routine Ecg 2015-12-20 00:00:00 W/least 12 Lds W/i r 83.71 2010-08-05 00:00:00 [facility] 77.98 2010-08-05 00:00:00 [facility] Plan of Care Planned Activity Planned Date Details Comments Source Goal Plan of Care Note [code = 14065-1] Goal Plan of Care Note [code = 08367-3] Goal Plan of Care Note [code = 41016-8] Goal Plan of Care Note [code = 01502-7] Goal Plan of Care Note [code = 34895-3] Goal Plan of Care Note [code = 18761-8] Goal Plan of Care Note [code = 51184-5] Goal Plan of Care Note [code = 13207-4] Goal Plan of Care Note [code = 06834-9] Goal Plan of Care Note [code = 10953-0] Goal Plan of Care Note [code = 74873-5] Goal Plan of Care Note [code = 66060-0] Goal Plan of Care Note [code = 94220-2] Goal Plan of Care Note [code = 63397-9] Goal Plan of Care Note [code = 96101-1] Goal Plan of Care Note [code = 30013-7] Goal Plan of Care Note [code = 96788-5] Goal Plan of Care Note [code = 30740-7] Goal Plan of Care Note [code = 52430-6] Goal Plan of Care Note [code = 47843-3] Goal Plan of Care Note [code = 01836-4] Goal Plan of Care Note [code = 37274-5] Goal Plan of Care Note [code = 01882-0] Goal Plan of Care Note [code = 58389-1] Goal Plan of Care Note [code = 90210-4] Goal Plan of Care Note [code = 96866-1] Goal Plan of Care Note [code = 62084-6] Goal Plan of Care Note [code = 47139-3] Goal Plan of Care Note [code = 68998-8] Goal Plan of Care Note [code = 38183-9] Goal Plan of Care Note [code = 22644-7] Goal Plan of Care Note [code = 29061-3] Goal Plan of Care Note [code = 09638-5] Goal Plan of Care Note [code = 36032-6] Goal Plan of Care Note [code = 27155-9] Goal Plan of Care Note [code = 39484-7] Goal Plan of Care Note [code = 19153-9] Goal Plan of Care Note [code = 51317-2] Goal Plan of Care Note [code = 34036-3] Goal Plan of Care Note [code = 72225-7] Goal Plan of Care Note [code = 68496-4] Goal Plan of Care Note [code = 99193-4] Goal Plan of Care Note [code = 84371-8] Goal Plan of Care Note [code = 62581-4] Goal Plan of Care Note [code = 54229-0] Goal Plan of Care Note [code = 51090-5] Goal Plan of Care Note [code = 77400-1] Goal Plan of Care Note [code = 85516-2] Goal Plan of Care Note [code = 54756-7] Goal Plan of Care Note [code = 39865-8] Goal Plan of Care Note [code = 25703-8] Goal Plan of Care Note [code = 48868-1] Goal Plan of Care Note [code = 11763-2] Goal Plan of Care Note [code = 37576-2] Goal Plan of Care Note [code = 53042-1] Goal Plan of Care Note [code = 43781-4] Goal Plan of Care Note [code = 86780-6] Goal Plan of Care Note [code = 02737-3] Goal Plan of Care Note [code = 25194-7] Goal Plan of Care Note [code = 49923-8] Goal Plan of Care Note [code = 19974-0] Goal Plan of Care Note [code = 03551-4] Goal Plan of Care Note [code = 33188-8] Goal Plan of Care Note [code = 92985-3] Goal Plan of Care Note [code = 23685-5] Goal Plan of Care Note [code = 16978-7] Goal Plan of Care Note [code = 23876-4] Encounters Start End Encounter Admission Attending Care Care Encounter Source Date/Time Date/Time Type Type Clinicians Facility Department ID 2021-05-10 Emergency [facility] [id number] [facility] 21:18:12 [facility] 2021-05-10 Emergency [facility] [id number] Univers 15:04:50 [facility] 2021-05-08 Emergency [facility] [id number] Univers 16:08:38 ity [facility] 2020-08-08 Inpatient Bebeto Valderrama HCATO RADI [id number] [facility] 15:30:00 69948 [facility] 2020-08-02 Inpatient HCATO CARISSA [id number] [facility] 13:01:00 74512 [facility] 2020-02-13 Inpatient HCATO CARISSA [id number] [facility] 19:15:00 10736 [facility] 2020-01-16 Inpatient ERICA Wilson, HCATO SURG [id number] [facility] 16:00:00 Elbert 94510 [facility] 2022-01-20 2022-01-20 Outpatient [id number] t98ygb-1 00:00:00 00:00:00 Visit 8baf-464d baf-464d-a -[id number]-754 [id number]-81485t 78mreb97b aeb84a 2021-10-16 2021-10-16 Emergency X [facility] ERT [id number] Univers 16:39:00 22:23:00 BEATRIZ emily [facility] 2021-10-16 2021-10-16 [facility] [id number] Univers 16:39:00 22:23:00 Beatriz BARBER 350.1.13.10 ity [facility] 4.2.[address] [place] [phone] 2021-09-22 2021-09-22 Emergency X [facility] ERT [id number] Univers 09:56:00 12:05:00 JN diaz [facility] 2021-09-22 2021-09-22 Emergency [facility] [id number] Univers 09:56:00 12:05:00 Jn BARBER 350.1.13.10 i ty of [place] 4.2.7.2.686 [facility] [id number] [address] 2021-08-20 2021-08-20 Cam Valdez [facility] [id number] Univers 00:00:00 00:00:00 [facility] [id number] it y of [place] 4.2.7.2.686 Blake as DANIELITO?BLEA [phone] Co dical [address] MEDICAL OFFICE BUILDING 2021-07-31 2021-07-31 Outpatient Bebeto Valderrama [facility] Y96 [facility] 05:47:00 05:47:00 [facility] 2021-07-31 2021-07-31 Outpatient Bebeto Valderrama [facility] [id number] [facility] 05:47:00 05:47:00 [facility] 2021-06-18 2021-06-18 Emergency X JAVIER JANG ERT [id number] Univers 04:31:00 08:25:00 FOZIA diaz [facility] 2021-06-18 2021-06-18 Emergency Laine [facility] [id number] Univers 04:31:00 08:25:00 Rikarlie Rhodes [place] 350.1.13.10 ity [facility] 4.2.7.2.686 [place] [id number] [address] 2021-06-10 2021-06-10 Outpatient [facility] [id number] [place] 00:00:00 00:00:[address] 2021-05-30 2021-05-30 Emergency X MISTY ARCLAIR ERT [id number] Univers 15:49:00 19:42:00 MARY emily [facility] 2021-05-30 2021-05-30 Emergency Misty [facility] [id number] Univers 15:49:00 19:42:00 Mary Rhodes [place] 350.1.13.10 i ty of [facility] 4.2.7.2.686 [place] [id number] [address] 2021-03-17 2021-03-17 Cam Thompson [facility] [id number] Univers 00:00:00 00:00:00 Doron Barber 350.1.13.10 i [facility] 4.2.7.2.686 Blakejacob rhodes Arik [phone] Co dical [address] 2021-02-27 2021-02-27 Outpatient THOMPSON [facility] [id number]-[id number] Univers 15:00:00 15:00:00 DORON [id number] [facility] 2021-02-27 2021-02-27 Outpatient R DONNA [facility] [id number] Univers 15:00:00 15:00:00 DORON [facility] 2021-02-19 2021-02-19 Outpatient Anupama GONZALEZ [facility] [id number] Univers 11:30:00 11:30:00 SENDIL [id number] [facility] 2021-01-02 2021-01-02 Outpatient R ROBBIE [facility] [id number] Q-20 Univers 11:15:00 11:15:00 FABIO [id number] [facility] 2020-12-23 2020-12-23 Outpatient R ROBBIE [facility] [id number] Q-20 Univers 16:00:00 16:00:00 FABIO [id number] [facility] 2020-12-23 2020-12-23 Outpatient R ROBBIE [facility] [id number] Univers 16:00:00 16:00:00 FABIO [facility] 2020-12-19 2020-12-19 Outpatient R ROBBIE [facility] [id number] Q-20 Univers 11:00:00 11:00:00 FABIO [id number] [facility] 2020-12-10 2020-12-10 Outpatient R LISA [facility] [id number] Univers 09:00:00 09:53:04 SENDIL [facility] 2020-12-10 2020-12-10 Outpatient R LISA [facility] [id number] Univers 09:00:00 09:00:00 SENDIL [id number] [facility] 2020-11-07 2020-11-07 Outpatient R DONNA [facility] [id number] Univers 13:30:00 13:30:00 DORON [facility] 2020-06-02 2020-06-02 [facility]phone [facility] [id number] 00:00:00 00:00:00 Lily Barber 350.1.13.10 [place] 4.2.7.2.686 Professio [id number] [address] 2020-05-29 2020-05-29 Outpatient R LUIS [facility] [id number] Univers 15:15:00 15:15:00 LESLEE [id number] [facility] 2020-05-29 2020-05-29 [facility] 334 [id number] Univers 15:15:00 15:15:00 LESLEE [facility] 2020-05-27 2020-05-27 Office [facility] [id number] 10:59:24 11:54:17 Visit Lily Barber 350.1.13.10 [place] 4.2.7.2.686 Professio [phone] [address] 2020-05-27 2020-05-27 Outpatient R [facility] [id number] 0Q-20 Univers 10:45:00 10:45:00 LILY [id number] [facility] 2020-05-27 2020-05-27 Outpatient R [facility] [id number] Univers 10:45:00 10:45:[facility] 2020-05-27 2020-05-27 Orders Doctor JACOBS [id number] [id number] 00:00:00 00:00:00 Only Unassigned, BENITA 350.1.13.[address] [facility] 4.2.7.2.686 [id number] 2020-01-10 2020-01-10 Outpatient Fukuda, HCACL LABO [id number] [facility] 18:46:00 18:46:00 Elbert [id number] [facility] 2020-01-10 2020-01-10 Outpatient Fukjocelynn, HCATO SURG [id number] [facility] 16:00:00 16:00:00 Tomiko 64640 [facility] 2020-01-04 2020-01-04 Outpatient DINAH Wilson [id number] [facility] 13:00:00 13:00:00 Tomiko 57411 [facility] 2019-12-12 2019-12-12 Outpatient R CORINNE, [facility] [id number] Univers 16:30:00 16:30:00 STANISLAW [id number] [facility] 2019-12-12 2019-12-12 Outpatient R SUN, [facility] [id number] Univers 16:30:00 16:30:00 STANISLAW [facility] 2019-12-07 2019-12-07 Outpatient R DONNA, [facility] [id number] Univers 09:00:00 09:00:00 DORON [facility] 2019-11-22 2019-11-22 [facility] [id number] [place] 00:00:00 00:00:00 SILVINA [address] 2019-11-06 2019-11-06 [facility] [id number] [place] 00:00:00 00:00:00 SILVINA 632 [place] 2019-11-01 2019-11-01 [facility] [id number] [place] 00:00:00 00:00:00 SILVINA 554 [place] [address] 2019-10-30 2019-10-30 Outpatient GALAN, [facility] [id number] [place] 00:00:00 00:00:00 ABHIJIT 714 Method i 2019-10-18 2019-10-18 [facility] [id number] [place] 00:00:00 00:00:00 SILVINA 629 [place] 2019-10-02 2019-10-02 [facility] [id number] [place] 00:00:00 00:00:00 SILVINA 105 [place] 2019-10-01 2019-10-01 [facility] [id number] [place] 00:00:00 00:00:00 SILVINA [address] 2019-09-19 2019-09-19 Outpatient ANTOSH, [facility] [id number] [place] 00:00:00 00:00:00 SILVINA 116 [place] 2019-09-11 2019-09-11 Outpatient Anupama SUN [facility] [id number] Univers 10:30:00 10:30:00 STANISLAW [id number] [facility] 2019-09-11 2019-09-11 Outpatient Anupama SUN [facility] [id number] Univers 10:30:00 10:30:00 STANISLAW [facility] 2019-09-10 2019-09-10 Outpatient ANGELIA, [facility] [id number] [address] [place] 00:00:00 00:00:00 ABHIJIT 420 Method i 2019-09-10 2019-09-10 Outpatient ERNST [facility] [id number] [place] 00:00:00 00:00:00 SILVINA 373 [address] 2019-09-10 2019-09-10 Outpatient ERNST [facility] [id number] [place] 00:00:00 00:00:00 SILVINA 354 [address] 2019-08-23 2019-08-23 Outpatient Anupama [facility] [id number] Univers 16:15:00 10:31:44 [facility] 2019-08-15 2019-08-15 Outpatient Anupama [facility] [id number] Univers 09:15:00 09:44:35 [facility] 2019-07-07 2019-07-07 Emergency [facility] [id number] Univers 10:13:53 13:06:00 FOZIA [facility] 2010-08-05 2010-08-07 Inpatient OUTP John Kit HCATO SURG [id number] [facility] 16:20:00 14:00:00 22526 [facility] Results Test Description Test Time Test Comments Results Result Comments Source VITAMIN D, 25 [place] 2021-11-24 04:13:44 Test Item Value Reference Range Interpretation Comme nts VITAMIN D, 25 OH (test code 18 NG/ML SEE BELOW L NOTE: 25-HYDROXYVITAMIN D ASSAY = 4958) INCLUDES 25-HYD ROXYVITAMIN D2 AND D3. METHODOLOGY IS CHEMILUMINESCENT IMMUNOASSAY. INTERPRETIVE RANGES PED IATRIC (<17 YEARS) . . . . . . . . . . . NG/ML 20-100ADULT: INSUFFICIENT . . . . . . . . . . . . . . NG/ML <20 S UBOPTIMAL . . . . . . . . . . . . . . . NG/ML 20-29 OPTIMAL . . . . . . . . . . . . . . . . . NG/ML 30-100 UN LESS OTHERWISE INDICATED, ALL TESTING PERFORMED ATCLINICAL PATH [facility] [address] [place] [address] LABORATORY DIRE CTOR: NOAH DICKENS M.D. CLIA NUMBER [id number] [facility] [place]. [id number] HIV 1/2 4TH GEN, RFLX [id number] 03:26:41 Test Item Value Reference Range Interpretation Comments HIV 1/2 4TH GEN, RFLX CONF (test NON-REACTIVE NON-REACTIVE code = 3514) ALBUMIN, URINE, [id number] 02:46:02 Test Item Value Reference Range Interpretation Comments ALBUMIN, URINE, RANDOM (test code 10.2 MG/DL NOT ESTAB = 82040) MICROALBUMIN, [id number] 00:00:00 Test Item Value Reference Range Interpretation Comments ALBUMIN, URINE, RANDOM (test code 10.2 MG/DL = 55584) HIV AB/AG COMBO RFLX [id number] 00:00:00 Test Item Value Reference Range Interpretation Comments HIV 1/2 4TH GEN, RFLX CONF (test NON-REACTIVE code = 3514) VITAMIN D, 25 [id number] 00:00:00 Test Item Value Reference Range Interpretation Comments VITAMIN D, 25 [place] (test code = 4958) 18 NG/ML LIPID [id number] 02:15:07 Test Item Value Reference Range Interpretation Comments CHOLESTEROL (test 206 MG/DL <200 H code = 2210) TRIGLYCERIDES (test 1120 MG/DL <150 H CUBA DURANTEN LIPEMIC code = 2232) RESULTS RECHECK ED [...] MOREINFORMATION , SEE CLIENT ANNOUNCE MENT AT [email or web address] CalcLDL-C RISK RATIO LDL/HDL (NOTE) RATIO <3.22 UNABLE T O CALCULATE (test code = 2238) COMPREHENSIVE METABOLIC [id number] 02:15:07 Test Item Value Reference Range Interpretation Comments GLUCOSE (test code = 349 MG/DL 70-99 H 2216) BUN (test code = 17 MG/DL 6-20 2207) CREATININE (test 0.80 MG/DL 0.60-1.30 code = 2214) eGFR (2020 CKD-EPI) 94 ML/MIN/1.73 >60 (test code = 08135) CALC BUN/CREAT (test 21 RATIO 6-28 code = 2235) SODIUM (test code = 137 MEQ/L 816-639 5047) POTASSIUM (test code 4.2 MEQ/L 3.5-5.4 = 2227) CHLORIDE (test code 99 MEQ/L 95-107 = 2215) CARBON DIOXIDE (test 16 MEQ/L 19-31 L code = 2206) CALCIUM (test code = 10.0 MG/DL 8.5-10.5 2208) PROTEIN, TOTAL (test 7.8 G/DL 6.1-8.3 code = 2229) ALBUMIN (test code = 4.8 G/DL 3.5-5.2 2200) CALC GLOBULIN (test 3.0 G/DL 1.9-3.7 code = 2240) CALC A/G RATIO (test 1.6 RATIO 1.0-2.6 code = 2234) BILIRUBIN, TOTAL 0.2 MG/DL See_Comment [Automated message] (test code = 2207) The syste m which generated this result transmit faith reference range : <=1.2. The refe rence range was not u sed to interpret th is result as normal/abnormal . ALKALINE PHOSPHATASE 69 U/L 40-113 (test code = 2204) AST (test code = 21 U/L 9-40 2217) ALT (test code = 39 U/L 5-40 2218) LIPID [id number] 00:00:00 Test Item Value Reference Range Interpretation Comments CHOLESTEROL (test code = 2210) 206 MG/DL TRIGLYCERIDES (test code = 2232) 1120 MG/DL HDL CHOLESTEROL (test code = 24 MG/DL 0) CALC LDL CHOL (test code = 2237) (NOTE) MG/DL RISK RATIO LDL/HDL (test code = (NOTE) RATIO 2238) COMPREHENSIVE METABOLIC [id number] 00:00:00 Test Item Value Reference Range Interpretation Comments GLUCOSE (test code = 2217) 349 MG/DL BUN (test code = 2208) 17 MG/DL CREATININE (test code = 2214) 0.80 MG/DL eGFR (2020 CKD-EPI) (test code 94 ML/MIN/1.73 = 30195) CALC BUN/CREAT (test code = 21 RATIO 2235) SODIUM (test code = 2231) 137 MEQ/L POTASSIUM (test code = 2228) 4.2 MEQ/L CHLORIDE (test code = 2215) 99 MEQ/L CARBON DIOXIDE (test code = 16 MEQ/L 2205) CALCIUM (test code = 2209) 10.0 MG/DL PROTEIN, TOTAL (test code = 7.8 G/DL 2228) ALBUMIN (test code = 2201) 4.8 G/DL CALC GLOBULIN (test code = 3.0 G/DL 0) CALC A/G RATIO (test code = 1.6 RATIO 4) BILIRUBIN, TOTAL (test code = 0.2 MG/DL 2206) ALKALINE PHOSPHATASE (test 69 U/L code = 2204) AST (test code = 2218) 21 U/L ALT (test code = 2219) 39 U/L HEMOGLOBIN [id number] 04:43:57 Test Item Value Reference Range Interpretation Comments HEMOGLOBIN A1c (test 11.5 % 4.2-5.6 H AMERIC AN DIABETES code = 14296) ASSOCIATION IDELINES FOR HGB A1C: PREDIABETES/INC REASED RISK . . . . . . . 5 .7-6.4% DIAGNOSIS OF DI ABETES . . . . . . . . . >=6 .5% WITH CONFIRMATION OR APPROPRIATE SYMPTOMS NOTE: ASSAY MAY BE AFFECTED BY HEMOGLOBINOPATH IES (SICKLE CELL ANEMIA, S- C DISEASE, OTHERS) OR LYLE FICIALLY LOWERED BY DECR EASED RED CELL SURVIVAL ( HEMOLYTIC ANEMIAS, BLOOD LOSS, ETC.). CONSIDER ALTERN ATE TESTING OR LABORATORY C ONSULTATION. HEMOGLOBIN [id number] 00:00:00 Test Item Value Reference Range Interpretation Comments HEMOGLOBIN A1c (test code = 89380) 11.5 % HEMOGLOBIN [id number] 00:00:00 Test Item Value Reference Range Interpretation Comments HEMOGLOBIN A1c (test code = 68680) 11.5 % CULTURE, [id number] 11:34:56SPECIMEN NUMBER: [id number] CULTURE, URINE SPECIMEN NUMBER: [id number] SPECIMEN COMMENT: URINE SOURCE: URINE REPORT STATUS: FINAL FINAL REPORT: 10/25/2021 10-50,000 CFU/ML UROGENITAL NORMA PRESENT NO COM MON PATHOGENSCULTURE, [id number] 00:00:00 Test Item Value Reference Range Interpretation Comments CULTURE, URINE (test SPECIMEN NUMBER: code = 45587) [id number] VAGINAL PATHOGENS DNA [id number] 11:55:20 Test Item Value Reference Range Interpretation Comments ANDIE SPECIES (test NEGATIVE NEGATIVE code = ) G. VAGINALIS (test NEGATIVE NEGATIVE code = 84378) T. VAGINALIS (test NEGATIVE NEGATIVE UNLESS O THERWISE code = ) INDICATED, ALL TESTING PERFORMED [facility] PATHOLOGY LABOR [facility]. [address] [place] [address] 4 LABORATORY DIRE CTOR: NOAH TODD M.D. CLIA NUMBER [id number] [facility] [id number] VAGINAL PATHOGENS DNA [id number] 00:00:00 Test Item Value Reference Range Interpretation Comments ANDIE SPECIES (test code = 16648) NEGATIVE G. VAGINALIS (test code = 70689) NEGATIVE T. VAGINALIS (test code = 45651) NEGATIVE POCT GLUCOSE (AUTOMATED)2021-10-17 01:51:54 Test Item Value Reference Range Interpretation Comments POCT GLU (test code = 8416305725) 365 mg/dL 70-110 H Lab Interpretation (test code = Abnormal 02711-4) [facility] GLUCOSE (AUTOMATED)2021-10-17 00:46:51 Test Item Value Reference Range Interpretation Comments POCT GLU (test code = 2583977612) 435 mg/dL 70-110 H Lab Interpretation (test code = Abnormal 29928-9) [facility] GLUCOSE(AGE >30DAYS)2021-10-17 00:41:00 Test Item Value Reference Range Interpretation Comments POCT Glu (age>30days) (test code = 435 mg/dL 70-110 A 3342) Lab Interpretation (test code = Abnormal 98996-1) [facility] [id number] 23:40:42 Test Item Value Reference Interpretation Comments Range TROPONIN I (test 0.001 ng/mL See_Comment [Automated code = 4470475525) message] The system which generated this result [...] biotin. Lab Interpretation Normal (test code = 85825-1) [facility] [id number] 23:37:40 Test Item Value Reference Range Interpretation Comments NT-proBNP (test code 20 pg/mL See_Comment [Autom ated = 1184228076) message] The system which generated this result transmitted reference range : <=125. The reference range was not used to interpret this result as normal/abnormal . CALVIN (test code = CALVIN) Biotin has been reported to cause a negative bias, interpret results relative to patient's use of biotin. Lab Interpretation Normal (test code = 98563-3) [facility]OLIC PAN[facility] (78160)2021-10-16 23:29:18 Test Item Value Reference Range Interpretation Comments NA (test code = 134 mmol/L 135-145 L 3774914448) K (test code = 4.4 mmol/L 3.5-5.0 7174897163) CL (test code = 97 mmol/L 98-108 L 9756288067) CO2 TOTAL (test code = 23 mmol/L 23-31 8205907193) AGAP (test code = 2-16 0846862747) BUN (test code = 21 mg/dL 7-23 9953675274) GLUCOSE (test code = 431 mg/dL 70-110 H 9462939045) CREATININE (test code = 0.88 mg/dL 0.50-1.04 3105422174) TOTAL BILI (test code = 0.5 mg/dL 0.1-1.4 5638541781) CALCIUM (test code = 9.2 mg/dL 8.6-10.6 1385356385) T PROTEIN (test code = 7.4 g/dL 6.3-8.2 8093498032) ALBUMIN (test code = 4.7 g/dL 3.5-5.0 6525780131) ALK PHOS (test code = 52 U/L 34-122 9586942501) ALTv (test code = 30 U/L 5-35 2-6) AST(SGOT) (test code = 25 U/L 13-40 5931077641) eGFR (test code = mL/min/1.73m2 6028855102) CALVIN (test code = CALVIN) Association of [...] tests). Lab Interpretation Abnormal (test code = 40315-9) [facility] WITH [id number] 23:20:10 Test Item Value Reference Range Interpretation Comments WBC (test code = See_Comment [Automated 6601-2) message] The sy stem which generated this result transmitted reference range : 4.30 - 11.10 10*3/?L. The reference range was not used to interpret this result as normal/abnormal . RBC (test code = See_Comment [Automated 712-8) message] The sy stem which generated this [...] RDW-SD (test code = 40.5 fL 39.0-49.9 91369-8) RDW-CV (test code = 13.5 % 12.0-15.5 788-0) PLT (test code = See_Comment [Automated 257-3) message] The sy stem which generated this result transmitted reference range : 166 - 358 10*3/ ?L. The reference r doretha was not used to interpret this result as normal/abnormal . MPV (test code = 9.6 fL 9.5-12.9 74810-3) NRBC/100 WBC (test See_Comment [Automat ed code = [id number]) message] The system which generated this result transmitted reference range : 0.0 - 10.0 /100 WBCs. The refer ence range was not u sed to interpret th is result as normal/abnormal . NRBC x10^3 (test code <0.01 See_Comment [Auto mated = [id number]) message] The s ystem which generated this result transmitted reference range : 10*3/?L. The reference range was not used to interpret this result as normal/abnormal . GRAN MAT (NEUT) % 43.2 % (test code = 770-8) IMM GRAN % (test code 0.70 % = [id number]) LYMPH % (test code = 42.8 % 736-9) MONO % (test code = 9.2 % 5905-5) EOS % (test code = 3.0 % 713-8) BASO % (test code = 1.1 % 706-2) GRAN MAT x10^3(ANC) 3.15 10*3/uL 1.88-7.09 (test code = [id number]) IMM GRAN x10^3 (test 0.05 10*3/uL 0.00-0.06 code = [id number]) LYMPH x10^3 (test code 3.12 10*3/uL 1.32-3.29 = 731-0) MONO x10^3 (test code 0.67 10*3/uL 0.33-0.92 = 742-7) EOS x10^3 (test code = 0.22 10*3/uL 0.03-0.39 711-2) BASO x10^3 (test code 0.08 10*3/uL 0.01-0.07 H = 704-7) Lab Interpretation Abnormal (test code = 88783-8) [id number] 23:09:32 Test Item Value Reference Range Interpretation Comments LACTIC ACID (test code = 1.94 mmol/L 0.50-2.20 [id number]) Lab Interpretation (test code = Normal 91153-6) [facility] [id number] 22:34:00 Test Item Value Reference Range Interpretation Comments POCT PREG (test code = 1605) Negative On board controls acceptable with Present C Line (test code = 3574) POCT PREG LOT # (test code = 3575) [id number] POCT PREG TEST DATE (test 2023-04-09 code = 3576) Lab Interpretation (test code = Normal 44835-6) [facility], [id number] 08:52:36SPECIMEN NUMBER: [id number] CULTURE, URINE SPECIMEN NUMBER: [id number] SPECIMEN COMMENT: URINE SOURCE: URINE REPORT STATUS: FINAL FINAL REPORT: 10/12/2021 >100,000 CFU/ML UROGENITAL NORMA PRESENT NOCOMMON PATHOGENS UNLESS OTHERWISE INDICATED, ALL TESTING PERFORMED [facility] [address] [place] [address] LINK TRAINER OPERATOR: NOAH DICKENS M.D. [place] NUMBER [id number] [place]. [id number], [id number] 00:00:00 Test Item Value Reference Range Interpretation Comments CULTURE, URINE (test SPECIMEN NUMBER: code = 50124) [id number] URINE CULTURE, NO [id number] 09:46:36SPECIMEN NUMBER: [id number] URINE CULTURE, NO SENS SPECIMEN NUMBER: [id number] SPECIMEN COMMENT: URINESOURCE: URINE REPORT STATUS: FINAL FINAL REPORT: 10/08/2021 50-100,000 CFU/ML UROGENITAL NORMA PRESENT NO COMMON PATHOGENSURINE CULTURE, NO [id number] 00:00:00 Test Item Value Reference Range Interpretation Comments URINE CULTURE, NO SPECIMEN NUMBER: SENS (test code = [id number] 06988) CBC W/AUTO DIFF WITH [id number] 07:54:02 Test Item Value Reference Range Interpretation [...] = 1036) NUCLEATED RBCS (test 0.0 /100 WBC'S See_Comment [Aut omated code = 1065) message] The sy stem which generated this [...] RBCS 0.00 K/UL 0.00-0.11 (test code = 62311) COMPREHENSIVE METABOLIC [id number] 05:34:02 Test Item Value Reference Range Interpretation Comments GLUCOSE (test code = 108 MG/DL 70-99 H 2216) BUN (test code = 17 MG/DL 12-28) CREATININE (test 0.84 MG/DL 0.60-1.30 code = 2214) eGFR (2020 CKD-EPI) 88 >60 (test code = 18210) ML/MIN/1.73 CALC BUN/CREAT (test 20 RATIO 01-05 code = 2235) SODIUM (test code = 141 MEQ/L 832-530 2380) POTASSIUM (test code 4.0 MEQ/L 3.5-5.4 = 2227) CHLORIDE (test code 100 MEQ/L 95-107 = 221) CARBON DIOXIDE (test 23 MEQ/L 19-31 code [...] ALT (test code = 28 U/L 5-40 UNLESS OTH ERWISE 2218) INDICATED, ALL TESTING PERFORM [facility]. [address] [place] [id number] [place] [address] DIRECTOR: NOAH DICKENS M.D. CLIA NUMBER [id number] CAP ACCREDITATION N O. [id number] CBC W/AUTO [id number] 00:00:00 Test Item Value Reference Range Interpretation Comments WBC (test code = 1001) 8.4 K/UL RBC (test code = 1002) 4.50 M/UL HEMOGLOBIN (test code = 1003) 12.1 G/DL HEMATOCRIT (test code = 1004) 36.2 % MCV (test code = 1005) 80.4 fL MCH (test code = 1006) 26.9 PG MCHC (test code = 1007) 33.4 G/DL RDW (test code = 1038) 13.8 % NEUTROPHILS (test code = 1008) 54.8 % LYMPHOCYTES (test code = 1010) 34.0 % MONOCYTES (test code = 1011) 7.1 % EOSINOPHILS (test code = 1012) 3.0 % BASOPHILS (test code = 1013) 0.6 % IMMATURE GRANULOCYTES (test 0.5 % code = 1036) NUCLEATED RBCS (test code = 0.0 /100WBC'S 1065) PLATELET COUNT (test code = 268 K/UL 1015) ABSOLUTE NEUTROPHILS (test code 4.59 K/UL = 1066) ABSOLUTE LYMPHOCYTES (test code 2.84 K/UL = 1067) ABSOLUTE MONOCYTES (test code = 0.59 K/UL 1068) ABSOLUTE EOSINOPHILS (test code 0.25 K/UL = 1040) ABSOLUTE BASOPHILS (test code = 0.05 K/UL 1069) ABS IMMATURE GRANULOCYTES (test 0.04 K/UL code = 1020) ABS NUCLEATED RBCS (test code = 0.00 K/UL 16251) CBC W/AUTO [id number] 00:00:00 Test Item Value Reference Range Interpretation Comments WBC (test code = 1001) 8.4 K/UL RBC (test code = 1002) 4.50 M/UL HEMOGLOBIN (test code = 1003) 12.1 G/DL HEMATOCRIT (test code = 1004) 36.2 % MCV (test code = 1005) 80.4 fL MCH (test code = 1006) 26.9 PG MCHC (test code = 1007) 33.4 G/DL RDW (test code = 1038) 13.8 % NEUTROPHILS (test code = 1008) 54.8 % LYMPHOCYTES (test code = 1010) 34.0 % MONOCYTES (test code = 1011) 7.1 % EOSINOPHILS (test code = 1012) 3.0 % BASOPHILS (test code = 1013) 0.6 % IMMATURE GRANULOCYTES (test 0.5 % code = 1036) NUCLEATED RBCS (test code = 0.0 /100WBC'S 1065) PLATELET COUNT (test code = 268 K/UL 1015) ABSOLUTE NEUTROPHILS (test code 4.59 K/UL = 1066) ABSOLUTE LYMPHOCYTES (test code 2.84 K/UL = 1067) ABSOLUTE MONOCYTES (test code = 0.59 K/UL 1068) ABSOLUTE EOSINOPHILS (test code 0.25 K/UL = 1040) ABSOLUTE BASOPHILS (test code = 0.05 K/UL 1069) ABS IMMATURE GRANULOCYTES (test 0.04 K/UL code = 1020) ABS NUCLEATED RBCS (test code = 0.00 K/UL 77047) COMPREHENSIVE METABOLIC [id number] 00:00:00 Test Item Value Reference Range Interpretation Comments GLUCOSE (test code = 2217) 108 MG/DL BUN (test code = 2208) 17 MG/DL CREATININE (test code = 2214) 0.84 MG/DL eGFR (2020 CKD-EPI) (test code 88 ML/MIN/1.73 = 98695) CALC BUN/CREAT (test code = 20 RATIO 2235) SODIUM (test code = 2231) 141 MEQ/L POTASSIUM (test code = 2228) 4.0 MEQ/L CHLORIDE (test code = 2215) 100 MEQ/L CARBON DIOXIDE (test code = 23 MEQ/L 2205) CALCIUM (test code = 2209) 10.3 MG/DL PROTEIN, TOTAL (test code = 7.6 G/DL 2228) ALBUMIN (test code = 2201) 4.7 G/DL CALC GLOBULIN (test code = 2.9 G/DL 2239) CALC A/G RATIO (test code = 1.6 RATIO 2233) BILIRUBIN, TOTAL (test code = <0.2 MG/DL 2206) ALKALINE PHOSPHATASE (test 51 U/L code = 2204) AST (test code = 2218) 22 U/L ALT (test code = 2219) 28 U/L COMP. METABOLIC PANEL (07692)2021-09-22 15:36:43 Test Item Value Reference Range Interpretation Comments NA (test code = 133 mmol/L 135-145 L 7176501709) K (test code = 4.8 mmol/L 3.5-5.0 4770206501) CL (test code = 96 mmol/L 98-108 L 4087811387) CO2 TOTAL (test code = 21 mmol/L 23-31 L 3668480045) AGAP (test code = 2-16 2590819074) BUN (test code = 30 mg/dL 7-23 H 4755540566) GLUCOSE (test code = 405 mg/dL 70-110 H 1507997323) CREATININE (test code = 0.74 mg/dL 0.50-1.04 0538120360) TOTAL BILI (test code = 0.6 mg/dL 0.1-1.2 4780980053) CALCIUM (test code = 9.7 mg/dL 8.6-10.6 2155896559) T PROTEIN (test code = 7.9 g/dL 6.3-8.2 6749809637) ALBUMIN (test code = 4.9 g/dL 3.5-5.0 7754050200) ALK PHOS (test code = 66 U/L 34-122 4199653321) ALTv (test code = 37 U/L 5-35 H 2-6) AST(SGOT) (test code = 31 U/L 13-40 9795203976) eGFR (test code = mL/min/1.73m2 6312585319) CALVIN (test code = CALVIN) Association of [...] tests). Lab Interpretation Abnormal (test code = 20021-6) [facility] WITH [id number] 15:26:02 Test Item Value Reference Range Interpretation Comments WBC (test code = See_Comment [Automated 6690-2) message] The sy stem which generated this [...] (test code = 38.2 fL 39.0-49.9 L 13453-1) RDW-CV (test code = 12.9 % 12.0-15.5 788-0) PLT (test code = See_Comment [Automated 777-3) message] The sy stem which generated this result transmitted reference range : 166 - 358 10*3/ ?L. The reference r doretha was not used to interpret this result as normal/abnormal . MPV (test code = 9.8 fL 9.5-12.9 02327-0) NRBC/100 WBC (test See_Comment [Automat ed code = 7991466686) message] The system which generated this result transmitted reference range : 0.0 - 10.0 /100 WBCs. The refer ence range was not u sed to interpret th is result as normal/abnormal . NRBC x10^3 (test code <0.01 See_Comment [Auto mated = 5681638634) message] The s ystem which generated this result transmitted reference range : 10*3/?L. The reference range was not used to interpret this result as normal/abnormal . GRAN MAT (NEUT) % 50.6 % (test code = 770-8) IMM GRAN % (test code 0.80 % = 2567129596) LYMPH % (test code = 37.0 % 736-9) MONO % (test code = 8.5 % 5905-5) EOS % (test code = 2.2 % 713-8) BASO % (test code = 0.9 % 706-2) GRAN MAT x10^3(ANC) 3.86 10*3/uL 1.88-7.09 (test code = 9669532646) IMM GRAN x10^3 (test 0.06 10*3/uL 0.00-0.06 code = 5677564052) LYMPH x10^3 (test code 2.83 10*3/uL 1.32-3.29 = 731-0) MONO x10^3 (test code 0.65 10*3/uL 0.33-0.92 = 742-7) EOS x10^3 (test code = 0.17 10*3/uL 0.03-0.39 711-2) BASO x10^3 (test code 0.07 10*3/uL 0.01-0.07 = 704-7) Lab Interpretation Abnormal (test code = 71262-9) [facility] [id number] 15:18:00 Test Item Value Reference Range Interpretation Comments POCT PREG (test code = 1605) negative On board controls acceptable with present C Line (test code = 3574) POCT PREG LOT # (test code = 3575) [id number] POCT PREG TEST DATE (test 09/07/2022 code = 3576) Lab Interpretation (test code = Normal 48578-0) [id number] 08:37:00 Test Item Value Reference Range Interpretation Comments GLUBED (test code = GLUBED) 260 mg/dL 60-125 H [id number] 06:42:00 Test Item Value Reference Range Interpretation Comments GLUBED (test code = GLUBED) 265 mg/dL 60-125 H COVID 19 Asymptomatic IH [id number] 17:24:00 Test Item Value Reference Range Interpretation Comments COVID 19 Asymptomatic IH AG (test NEGATIVE NEGATIVE code = COVNONPUIAG) COMPREHENSIVE METABOLIC [id number] 05:38:33 Test Item Value Reference Range Interpretation Comments GLUCOSE (test code = 411 MG/DL 70-99 H 2216) BUN (test code = 24 MG/DL 6-20 H 2207) CREATININE (test 1.13 MG/DL 0.60-1.30 code = 221) eGFR (2020 CKD-EPI) 62 ML/MIN/1.73 >60 (test code = 24376) CALC BUN/CREAT (test 21 RATIO 6-28 code = 223) SODIUM (test code = 136 MEQ/L 335-812 3635) POTASSIUM (test code 5.0 MEQ/L 3.5-5.4 = 2227) CHLORIDE (test code 97 MEQ/L 95-107 = 2214) CARBON DIOXIDE (test 20 MEQ/L 19-31 code = 2205) CALCIUM (test code = 10.3 MG/DL 8.5-10.5 2208) PROTEIN, TOTAL (test 8.3 G/DL 6.1-8.3 code = 2228) ALBUMIN (test code = 4.8 G/DL 3.5-5.2 2200) CALC GLOBULIN (test 3.5 G/DL 1.9-3.7 code = 2239) CALC A/G RATIO (test 1.4 RATIO 1.0-2.6 code = 223) BILIRUBIN, TOTAL 0.3 MG/DL See_Comment [Automated message] (test code = 220) The syste m which generated this result transmit faith reference range : <=1.2. The refe rence range was not u sed to interpret th is result as normal/abnormal . ALKALINE PHOSPHATASE 61 U/L 40-113 (test code = 2203) AST (test code = 38 U/L 9-40 2217) ALT (test code = 49 U/L 5-40 H 2218) LIPID [id number] 05:38:33 Test Item Value Reference Range Interpretation [...] MOREINFORMATION , SEE CLIENT ANNOUNCE MENT AT [email or web address] CalcLDL-C RISK RATIO LDL/HDL 2.79 RATIO <3.22 UNABLE T O CALCULATE (test code = 2237) UNLESS OT HERWISE INDICATED, ALL TESTING PERFORMED [facility] PATHOLOGY [place]. [address] [place] [address] 4 LABORATORY DIRE CTOR: NOAH TODD M.D. CLIA NUMBER [id number] [place] [id number] HEMOGLOBIN [id number] 03:55:33 Test Item Value Reference Range Interpretation Comments HEMOGLOBIN A1c (test 11.9 % 4.2-5.6 H AMERIC AN DIABETES code = 85235) ASSOCIATION IDELINES FOR HGB A1C: PREDIABETES/INC REASED RISK . . . . . . . 5 .7-6.4% DIAGNOSIS OF DI ABETES . . . . . . . . . >=6 .5% WITH CONFIRMATION OR APPROPRIATE SYMPTOMS NOTE: ASSAY MAY BE AFFECTED BY HEMOGLOBINOPATH IES (SICKLE CELL ANEMIA, S- C DISEASE, OTHERS) OR LYLE FICIALLY LOWERED BY DECR EASED RED CELL SURVIVAL ( HEMOLYTIC ANEMIAS, BLOOD LOSS, ETC.). CONSIDER ALTERN ATE TESTING OR LABORATORY C ONSULTATION. COMPREHENSIVE METABOLIC [id number] 00:00:00 Test Item Value Reference Range Interpretation Comments GLUCOSE (test code = 2217) 411 MG/DL BUN (test code = 2208) 24 MG/DL CREATININE (test code = 2214) 1.13 MG/DL eGFR (2020 CKD-EPI) (test code 62 ML/MIN/1.73 = 18233) CALC BUN/CREAT (test code = 21 RATIO 5) SODIUM (test code = 2231) 136 MEQ/L POTASSIUM (test code = 2228) 5.0 MEQ/L CHLORIDE (test code = 2215) 97 MEQ/L CARBON DIOXIDE (test code = 20 MEQ/L 2205) CALCIUM (test code = 2209) 10.3 MG/DL PROTEIN, TOTAL (test code = 8.3 G/DL 2229) ALBUMIN (test code = 2201) 4.8 G/DL CALC GLOBULIN (test code = 3.5 G/DL 2240) CALC A/G RATIO (test code = 1.4 RATIO 2234) BILIRUBIN, TOTAL (test code = 0.3 MG/DL 2207) ALKALINE PHOSPHATASE (test 61 U/L code = 2204) AST (test code = 2218) 38 U/L ALT (test code = 2219) 49 U/L HEMOGLOBIN [id number] 00:00:00 Test Item Value Reference Range Interpretation Comments HEMOGLOBIN A1c (test code = 75248) 11.9 % HEMOGLOBIN [id number] 00:00:00 Test Item Value Reference Range Interpretation Comments HEMOGLOBIN A1c (test code = 44050) 11.9 % LIPID [id number] 00:00:00 Test Item Value Reference Range Interpretation Comments CHOLESTEROL (test code = 2210) 176 MG/DL TRIGLYCERIDES (test code = 2232) 614 MG/DL HDL CHOLESTEROL (test code = 28 MG/DL 2220) CALC LDL CHOL (test code = 2237) (NOTE) MG/DL RISK RATIO LDL/HDL (test code = 2.79 RATIO 2238) CREATINE [id number] 13:35:13 Test Item Value Reference Range Interpretation Comments CK (test code = 1090253765) 71 U/L 33-194 Lab Interpretation (test code = Normal 74589-3) [facility] GLUCOSE (AUTOMATED)2021-06-18 13:07:35 Test Item Value Reference Range Interpretation Comments POCT GLU (test code = 4183183440) 351 mg/dL 70-110 H Lab Interpretation (test code = Abnormal 39282-9) [facility] GLUCOSE(AGE >30DAYS)2021-06-18 13:04:00 Test Item Value Reference Range Interpretation Comments POCT Glu (age>30days) (test code = 351 mg/dL 70-110 A 3342) Lab Interpretation (test code = Abnormal 61082-6) [facility]. Metabolic Panel (62334)2021-06-18 11:14:20 Test Item Value Reference Range Interpretation Comments NA (test code = 134 mmol/L 135-145 L 7712137181) K (test code = 4.6 mmol/L 3.5-5.0 1465873786) CL (test code = 103 mmol/L 98-108 1785613069) CO2 TOTAL (test code = 18 mmol/L 23-31 L 4655845433) AGAP (test code = 2-16 7172421390) BUN (test code = 30 mg/dL 7-23 H 7379694920) GLUCOSE (test code = 390 mg/dL 70-110 H 7670172713) CREATININE (test code = 0.93 mg/dL 0.50-1.04 6432759671) TOTAL BILI (test code = 0.4 mg/dL 0.1-1.0 8412606166) CALCIUM (test code = 10.0 mg/dL 8.6-10.6 7027955492) T PROTEIN (test code = 7.6 g/dL 6.3-8.2 4191143620) ALBUMIN (test code = 4.5 g/dL 3.5-5.0 6995190530) ALK PHOS (test code = 51 U/L 34-122 5377810242) ALTv (test code = 34 U/L 5-35 1742-6) AST(SGOT) (test code = 26 U/L 13-40 0738250011) eGFR (test code = mL/min/1.73m2 8552242743) CALVIN (test code = CALVIN) Association of [...] tests). Lab Interpretation Abnormal (test code = 52469-0) [facility] [id number] 11:06:00 Test Item Value Reference Range Interpretation Comments POCT PREG (test code = 1605) neg On board controls acceptable with yes C Line (test code = 3574) POCT PREG LOT # (test code = 3575) [id number] POCT PREG TEST DATE (test 08/10/2022 code = 3576) Lab Interpretation (test code = Normal 57837-1) [facility] with [id number] 11:00:39 Test Item Value Reference Range Interpretation Comments WBC (test code = See_Comment [Automated 0790-2) message] The sy stem which generated this result transmitted reference range : 4.30 - 11.10 10*3/?L. The reference range was not used to interpret this result as normal/abnormal . RBC (test code = See_Comment [Automated 299-8) message] The sy stem which generated this [...] RDW-SD (test code = 40.1 fL 39.0-49.9 05454-3) RDW-CV (test code = 13.2 % 12.0-15.5 788-0) PLT (test code = See_Comment [Automated 777-3) message] The sy stem which generated this result transmitted reference range : 166 - 358 10*3/ ?L. The reference r doretha was not used to interpret this result as normal/abnormal . MPV (test code = 9.5 fL 9.5-12.9 63699-5) NRBC/100 WBC (test See_Comment [Automat ed code = 3631915708) message] The system which generated this result transmitted reference range : 0.0 - 10.0 /100 WBCs. The refer ence range was not u sed to interpret th is result as normal/abnormal . NRBC x10^3 (test code <0.01 See_Comment [Auto mated = 8646978494) message] The s ystem which generated this result transmitted reference range : 10*3/?L. The reference range was not used to interpret this result as normal/abnormal . GRAN MAT (NEUT) % 43.7 % (test code = 770-8) IMM GRAN % (test code 0.70 % = 6527469537) LYMPH % (test code = 41.9 % 736-9) MONO % (test code = 8.8 % 5905-5) EOS % (test code = 3.6 % 713-8) BASO % (test code = 1.3 % 706-2) GRAN MAT x10^3(ANC) 2.68 10*3/uL 1.88-7.09 (test code = 7390240130) IMM GRAN x10^3 (test 0.04 10*3/uL 0.00-0.06 code = 3185193052) LYMPH x10^3 (test code 2.57 10*3/uL 1.32-3.29 = 731-0) MONO x10^3 (test code 0.54 10*3/uL 0.33-0.92 = 742-7) EOS x10^3 (test code = 0.22 10*3/uL 0.03-0.39 711-2) BASO x10^3 (test code 0.08 10*3/uL 0.01-0.07 H = 704-7) Lab Interpretation Abnormal (test code = 08175-2) [facility] [id number] 00:00:00 Test Item Value Reference Range Interpretation Comments ANDIE SPECIES (test code = ) NEGATIVE G. VAGINALIS (test code = 67878) NEGATIVE T. VAGINALIS (test code = 20379) NEGATIVE SARS-CoV-2 (COVID-19) by RT-PCR (HIGH RISK)2021-02-26 00:00:00 Test Item Value Reference Range Interpretation Comments SARS-CoV-2 INTERPRETATION (test NEGATIVE code = 11938) SOURCE (test code = 80915) NOT SPECIFIED CULTURE, URINE [ADDED]2021-02-13 00:00:00 Test Item Value Reference Range Interpretation Comments CULTURE, URINE (test SPECIMEN NUMBER: code = 96834) [id number] VAGINAL PATHOGENS DNA [id number] 00:00:00 Test Item Value Reference Range Interpretation Comments ANDIE SPECIES (test code = ) NEGATIVE G. VAGINALIS (test code = 38053) POSITIVE T. VAGINALIS (test code = 09013) NEGATIVE BLOOD GROUP (ABO) AND RH [id number] 00:00:00 Test Item Value Reference Range Interpretation Comments BLOOD TYPE AND RH (test code = A POSITIVE 3901) BLOOD GROUP (ABO) AND RH [id number] 00:00:00 Test Item Value Reference Range Interpretation Comments BLOOD TYPE AND RH (test code = A POSITIVE 3901) HEMOGLOBIN [id number] 00:00:00 Test Item Value Reference Range Interpretation Comments HEMOGLOBIN A1c (test code = 91336) 11.8 % HEMOGLOBIN [id number] 00:00:00 Test Item Value Reference Range Interpretation Comments HEMOGLOBIN A1c (test code = 64023) 11.8 % COMPREHENSIVE METABOLIC [id number] 00:00:00 Test Item Value Reference Range Interpretation Comments GLUCOSE (test code = 2217) 277 MG/DL BUN (test code = 2208) 26 MG/DL CREATININE (test code = 2214) 1.04 MG/DL eGFR AMER. (test code 77 ML/MIN/1.73 = 42178) eGFR NON- AMER. (test 66 ML/MIN/1.73 code = 90625) CALC BUN/CREAT (test code = 25 RATIO 2235) SODIUM (test code = 2231) 137 MEQ/L POTASSIUM (test code = 2228) 4.3 MEQ/L CHLORIDE (test code = 2215) 96 MEQ/L CARBON DIOXIDE (test code = 24 MEQ/L 2205) CALCIUM (test code = 2209) 10.8 MG/DL PROTEIN, TOTAL (test code = 8.5 G/DL 2228) ALBUMIN (test code = 2201) 5.3 G/DL CALC GLOBULIN (test code = 3.2 G/DL 2239) CALC A/G RATIO (test code = 1.7 RATIO 2233) BILIRUBIN, TOTAL (test code = 0.3 MG/DL 2206) ALKALINE PHOSPHATASE (test 44 U/L code = 2203) AST (test code = 2218) 32 U/L ALT (test code = 2219) 51 U/L CULTURE, [id number] 00:00:00 Test Item Value Reference Range Interpretation Comments CULTURE, URINE (test SPECIMEN NUMBER: code = 28194) [id number] CBC W/AUTO [id number] 00:00:00 Test Item Value Reference Range Interpretation Comments WBC (test code = 1001) 8.7 K/UL RBC (test code = 1002) 4.98 M/UL HEMOGLOBIN (test code = 1003) 13.7 G/DL HEMATOCRIT (test code = 1004) 41.8 % MCV (test code = 1005) 83.9 fL MCH (test code = 1006) 27.5 PG MCHC (test code = 1007) 32.8 G/DL RDW (test code = 1038) 13.1 % NEUTROPHILS (test code = 1008) 51.4 % LYMPHOCYTES (test code = 1010) 36.3 % MONOCYTES (test code = 1011) 8.3 % EOSINOPHILS (test code = 1012) 2.4 % BASOPHILS (test code = 1013) 1.0 % IMMATURE GRANULOCYTES (test 0.6 % code = 1036) NUCLEATED RBCS (test code = 0.0 /100WBC'S 1065) PLATELET COUNT (test code = 304 K/UL 1015) ABSOLUTE NEUTROPHILS (test code 4.44 K/UL = 1066) ABSOLUTE LYMPHOCYTES (test code 3.14 K/UL = 1067) ABSOLUTE MONOCYTES (test code = 0.72 K/UL 1068) ABSOLUTE EOSINOPHILS (test code 0.21 K/UL = 1040) ABSOLUTE BASOPHILS (test code = 0.09 K/UL 1069) ABS IMMATURE GRANULOCYTES (test 0.05 K/UL code = 1020) ABS NUCLEATED RBCS (test code = 0.00 K/UL 92579) CBC W/AUTO [id number] 00:00:00 Test Item Value Reference Range Interpretation Comments WBC (test code = 1001) 8.7 K/UL RBC (test code = 1002) 4.98 M/UL HEMOGLOBIN (test code = 1003) 13.7 G/DL HEMATOCRIT (test code = 1004) 41.8 % MCV (test code = 1005) 83.9 fL MCH (test code = 1006) 27.5 PG MCHC (test code = 1007) 32.8 G/DL RDW (test code = 1038) 13.1 % NEUTROPHILS (test code = 1008) 51.4 % LYMPHOCYTES (test code = 1010) 36.3 % MONOCYTES (test code = 1011) 8.3 % EOSINOPHILS (test code = 1012) 2.4 % BASOPHILS (test code = 1013) 1.0 % IMMATURE GRANULOCYTES (test 0.6 % code = 1036) NUCLEATED RBCS (test code = 0.0 /100WBC'S 1065) PLATELET COUNT (test code = 304 K/UL 1015) ABSOLUTE NEUTROPHILS (test code 4.44 K/UL = 1066) ABSOLUTE LYMPHOCYTES (test code 3.14 K/UL = 1067) ABSOLUTE MONOCYTES (test code = 0.72 K/UL 1068) ABSOLUTE EOSINOPHILS (test code 0.21 K/UL = 1040) ABSOLUTE BASOPHILS (test code = 0.09 K/UL 1069) ABS IMMATURE GRANULOCYTES (test 0.05 K/UL code = 1020) ABS NUCLEATED RBCS (test code = 0.00 K/UL 84014) VAGINAL PATHOGENS DNA [id number] 00:00:00 Test Item Value Reference Range Interpretation Comments ANDIE SPECIES (test code = ) NEGATIVE G. VAGINALIS (test code = ) NEGATIVE T. VAGINALIS (test code = ) NEGATIVE HEMOGLOBIN [id number] 00:00:00 Test Item Value Reference Range Interpretation Comments HEMOGLOBIN A1c (test code = 81092) 11.4 % HEMOGLOBIN [id number] 00:00:00 Test Item Value Reference Range Interpretation Comments HEMOGLOBIN A1c (test code = 13118) 11.4 % LIPID [id number] 00:00:00 Test Item Value Reference Range Interpretation Comments CHOLESTEROL (test code = 2210) 162 MG/DL TRIGLYCERIDES (test code = 2232) 387 MG/DL HDL CHOLESTEROL (test code = 2220) 30 MG/DL CALC LDL CHOL (test code = 2237) 80 MG/DL RISK RATIO LDL/HDL (test code = 2.67 RATIO 2238) COMPREHENSIVE METABOLIC [id number] 00:00:00 Test Item Value Reference Range Interpretation Comments GLUCOSE (test code = 2217) 236 MG/DL BUN (test code = 2208) 14 MG/DL CREATININE (test code = 2214) 0.71 MG/DL eGFR AMER. (test code 122 ML/MIN/1.73 = 71737) eGFR NON- AMER. (test 105 ML/MIN/1.73 code = 21922) CALC BUN/CREAT (test code = 20 RATIO 2235) SODIUM (test code = 2231) 138 MEQ/L POTASSIUM (test code = 2228) 4.3 MEQ/L CHLORIDE (test code = 2215) 103 MEQ/L CARBON DIOXIDE (test code = 19 MEQ/L 220) CALCIUM (test code = 2209) 10.0 MG/DL PROTEIN, TOTAL (test code = 7.4 G/DL 2228) ALBUMIN (test code = 2201) 4.5 G/DL CALC GLOBULIN (test code = 2.9 G/DL 2240) CALC A/G RATIO (test code = 1.6 RATIO 2234) BILIRUBIN, TOTAL (test code = 0.4 MG/DL 2206) ALKALINE PHOSPHATASE (test 55 U/L code = 2204) AST (test code = 2218) 38 U/L ALT (test code = 2219) 69 U/L - CT UP EXTREM W/O CONT [id number] 08:37:00 [facility] 1980 Sex: F PatientName: MARGE FRANCO Unit No: [id number] EXAMS: CPT CODE: [id number] [place] EXTREM W/[place] [address] [place] SCAN LEFT WRIST WITH RECONSTRUCTION DIAGNOSIS: 1. No evidence of fracture or dislocation. The scaphoid is within normal limits. No evidence of scapholunate disassociation. No evidence of focal bony lesion. TECHNIQUE: Volumetric CT data of the left wrist was obtained without use of intravenous contrast. Images were then viewed in the axial, coronal and sagittal planes. CT radiation dose optimizationis achieved for this examination by the use of a CT protocol in accordance with ACR practice standards and adherence to specialty food products supervisor's recommendations. INDICATION: LEFT WRIST SPRAIN, POSSIBLE SCAPHOID FRACTURE COMPARISON: None. COMMENT: Findings are as described above. at 0837 Reported and signed by: America Schuler MD CC: Bebeto Quiroga MD Technologist: KAVEH WYMAN MRI CTDI: DLP: Trnscrpt: 08/11/2020 (0837) [facility]el[facility] NAME: MARGE FRANCO [address] [place] [address] PHYS: Bebeto Valiente MD : 1980 AGE: 40 SEX: F [place], [place] [address] LOC: Y.RAD PHONE #: [phone] EXAM DATE: 08/08/2020TATUS: ALEX CLI FAX #: [phone] RAD #: D/C DT PAGE 1 Signed Report Patient Name: Nguyen FRANCO No: [id number] EXAMS: CPT CODE: [id number] [place] UP EXTREM W/[place] [address] (Continued) Orig PrintD/T: S: 08/11/2020 (0840) [facility] NAME: MARGE FRANCO [address] [place] [address] PHYS: Bebeto Valiente MD : 1980 AGE: 40 SEX: F [place], [place] [address] LOC: YDajaRAD PHONE #: [phone] EXAM DATE: 08/08/2020 STATUS: DEP CLI FAX #: [phone] RAD #: D/C DT PAGE 2 Signed ReportCULTURE, [id number] 00:00:00 Test Item Value Reference Range Interpretation Comments CULTURE, URINE (test SPECIMEN NUMBER: code = 39011) [id number] VAGINAL PATHOGENS DNA [id number] 00:00:00 Test Item Value Reference Range Interpretation Comments ANDIE SPECIES (test code = 78132) NEGATIVE G. VAGINALIS (test code = 36128) NEGATIVE T. VAGINALIS (test code = 60976) NEGATIVE - XR FOREARM 2 VIEWS [id number] 09:10:00 [facility] 1980 Sex: F PatientName: MARGE FRANCO Unit No: [id number] EXAMS: CPT CODE: [id number] XR FOREARM [address] [place] [address] Leftforearm and wrist 4 views COMMENT: There is no evidence for fracture or subluxation. No focal bony lesions are seen. at 0910 Reported and signed by: Prasad Marina MD CC: Rafy Ferguson MD Technologist: Marie Johnson(R) Transcribed D/ (0910) Renee [facility] NAME: MARGE FRANCO [address] [facility] PHYS: HAMST. - Rafy Ferguson : 1980 AGE: 40 SEX: F [place], [place] LOC: TEOFILO PHONE #: [phone] EXAM DATE: 08/02/2020 STATUS: DEP ER FAX #: [phone] RAD #: D/C DT PAGE 1 Signed Report Patient Name: MARGE FRANCO Unit No: [id number]: CPT CODE: [id number] XR FOREARM [address] [place] [address] (Continued) Orig Print D/T: S: 08/04/2020 (0914) [facility] NAME: MARGE FRANCO [address] [facility] PHYS: Denise Marino : 1980 AGE: 40 SEX: F [place], [place] [address] LOC: TEOFILO PHONE #: [phone] EXAM DATE: 08/02/2020 STATUS: DEP ER FAX #: [phone] RAD #: D/C DT PAGE 2 Signed ReportCULTURE, [id number] 00:00:00 Test Item Value Reference Range Interpretation Comments CULTURE, URINE (test SPECIMEN NUMBER: code = 08512) [id number] SARS-CoV-2 (COVID-19) by RT-PCR (HIGH RISK)2020-04-23 00:00:00 Test Item Value Reference Range Interpretation Comments SARS-CoV-2 INTERPRETATION Negative (test code = 60661) SOURCE (test code = 27674) Nasal_Swab_in_VTM__ UTM COMPREHENSIVE METABOLIC [id number] 00:00:00 Test Item Value Reference Range Interpretation Comments GLUCOSE (test code = 2217) 217 MG/DL BUN (test code = 2208) 13 MG/DL CREATININE (test code = 2214) 0.64 MG/DL eGFR AMER. (test code 128 ML/MIN/1.73 = 85339) eGFR NON- AMER. (test 110 ML/MIN/1.73 code = 95990) CALC BUN/CREAT (test code = 20 RATIO 2235) SODIUM (test code = 2231) 137 MEQ/L POTASSIUM (test code = 2228) 4.1 MEQ/L CHLORIDE (test code = 2215) 100 MEQ/L CARBON DIOXIDE (test code = 21 MEQ/L 2205) CALCIUM (test code = 2209) 10.0 MG/DL PROTEIN, TOTAL (test code = 7.7 G/DL 2228) ALBUMIN (test code = 2201) 4.6 G/DL CALC GLOBULIN (test code = 3.1 G/DL 224) CALC A/G RATIO (test code = 1.5 RATIO 2234) BILIRUBIN, TOTAL (test code = 0.4 MG/DL 2206) ALKALINE PHOSPHATASE (test 63 U/L code = 2204) AST (test code = 2218) 36 U/L ALT (test code = 2219) 47 U/L CULTURE, [id number] 00:00:00 Test Item Value Reference Range Interpretation Comments CULTURE, URINE (test SPECIMEN NUMBER: code = 88458) [id number] LIPID [id number] 00:00:00 Test Item Value Reference Range Interpretation Comments CHOLESTEROL (test code = 2210) 220 MG/DL TRIGLYCERIDES (test code = 2232) 873 MG/DL HDL CHOLESTEROL (test code = 30 MG/DL 0) CALC LDL CHOL (test code = 2237) (NOTE) MG/DL RISK RATIO LDL/HDL (test code = (NOTE) RATIO 2238) HEMOGLOBIN [id number] 00:00:00 Test Item Value Reference Range Interpretation Comments HEMOGLOBIN A1c (test code = 28006) 10.9 % HEMOGLOBIN [id number] 00:00:00 Test Item Value Reference Range Interpretation Comments HEMOGLOBIN A1c (test code = 80207) 10.9 % - XR ANKLE 3 + V [id number] 07:19:00 Patient Name: Marge Franco Unit No: [id number] EXAMS: CPT CODE: [id number] XR ANKLE 3 + V RT [address] Right ankle 3 views COMMENT: There is [...] SAMANTHA MORALES, RT(R) Transcribed D/ (718) MickeyL [facility] NAME: Marge Franco[address] [facility] PHYS: Barry Cardenas DO : 1980 AGE: 40 SEX: F [place] [address] LOC: TEOFILO PHONE #: [phone] EXAM DATE: 02/13/2020 STATUS: DEP ER FAX #: [phone] RAD #: D/C DT PAGE 1 Signed Report Patient Name: Marge Franco Unit No: [id number] EXAMS: CPT CODE: [id number] XR ANKLE 3 + V RT 18862 (Continued) Orig Print D/T: S: 02/14/2020 (721) [facility] NAME: Marge Franco Rell [facility] PHYS: Barry Cardenas DO : 1980 AGE: 40 SEX: F [place] [address] LOC: TEOFILO PHONE #: [phone] EXAM DATE: 02/13/2020 STATUS: DEP ER FAX #: [phone] RAD #: D/C DT PAGE 2 Signed Report- XR FOOT 2 VIEWS [id number] 07:19:00 Patient Name: Marge Franco Unit No: [id number] EXAMS: CPT CODE: [id number] [place]R FO[place] [address] [place] [address] Right ankle 3 views COMMENT: There is no evidence for fracture. There is no evidence for widening of the ankle mortise. There is no evidence for a joint effusion or loose body. A small plantar calcane al spur is noted. Right foot 2 views COMMENT: There is no evidence for fracture or subluxation. No focal bony lesions are seen. at 0719 Reported and signed by: Prasad Marina MD CC: Barry Hodge DO Technologist: SAMANTHA MORALES, RT(R) Transcribed D/ (718) Renee [facility] NAME: Marge Franco [address] [place] [address] PHYS: Barry Cardenas DO : 1980 AGE: 40 SEX: F [place], [place] [address]BHMX NO: [id number] LOC: TEOFILO PHONE #: [phone] EXAM DATE: 02/13/2020 STATUS: DEP ER FAX #: [phone] RAD #: D/C DT PAGE 1 Signed Report Patient Name: Marge Franco Unit No: [id number] EXAMS: CPT CODE: [id number] XR FO[place] [address] [place] [address] (Continued) Orig Print D/T: S: 02/14/2020 (721) [facility] NAME: Marge Franco [address] [place] [address] PHYS: Barry Cardenas DO : 1980 AGE: 40 SEX: F [place], [place] [address] LOC: TEOFILO PHONE #: [phone] EXAMDATE: 02/13/2020 STATUS: DEP ER FAX #: [phone] RAD #: D/C DT PAGE 2 Signed [id number] 11:17:00 Test Item Value Reference Range Interpretation Comments GLUBED (test code = GLUBED) 119 mg/dL 60-125 N [id number] 08:15:00 Test Item Value Reference Range Interpretation Comments GLUBED (test code = GLUBED) 117 mg/dL 60-125 N Novel Coronavirus 2019 [id number] 17:12:00 Test Item Value Reference Range Interpretation Comments Novel Coronavirus 2019 Inhouse (test Negative Negative code = COVNONPUI) Novel Coronavirus 2019 [id number] 17:12:00 Test Item Value Reference Range Interpretation Comments Novel Coronavirus 2019 Inhouse (test Negative Negative code = COVNONPUI) CBC W/AUTO [id number] 20:19:00 Test Item Value Reference Range Interpretation [...] 0-0 N code = NRBC) BASIC METABOLIC [id number] 19:54:00 Test Item Value Reference Range Interpretation [...] RATE (test code = GFR) mL/mi n/1.73 [id number] Range:Healthy A dults >90 mL/min/1.73 m2 For Chronic Kid stoney Disease: Stage II Mild Decrease i n GFR 60-90 Stage III Moderate Decrea se in GFR 30-59 Stage IV Severe Decrease in GFR 15-29 Stage V Kidney Failure <15 CREATININE (test code 0.83 mg/dL 0.55-1.30 N = CREAT) CALCIUM (test code = 9.6 mg/dL 8.2-10.1 N CA) - CT LOWER EXTRM W/O C [id number] 14:57:00 Patient Name: MARGE FRANCO Unit No: [id number] EXAMS: CPT CODE: [id number] [place] L[place] EXTRM W/[place] [address] [place] SCAN RIGHT ANKLE WITH RECONSTRUCTION DIAGNOSIS: 1. There the posterior tibial tendon is thickened and indistinct from the level of the tip of the medial malleolus to its distal insertion into the medial navicular. The distalmost balaji insertional posterior tibial tendon is obscured by extensive soft tissue inflammation. This spectrum of findings is compatible with at least a high-grade partial-thickness tear and more likely a full-thickness tear. Small mature calcifications are present within the region of the distal tendon adjacent to the medial cuneiform possibly representing heterotopic ossification related to chronic inflammation. 2. Calcaneal enthesophytes are projects intothe distal insertion of the Achilles tendon. Calcaneal bone spur projects into the proximal plantarfascia. TECHNIQUE: Volumetric CT data of the right ankle was obtained without use of intravenous contrast. Images were then viewed in the axial, coronal and sagittal planes. CT radiation dose optimization is achieved for this examination by the use of a CT protocol in accordance with ACR practice standards and adherence to specialty food products supervisor's recommendations. INDICATION: RIGHT ANKLE PAIN COMPARISON: None. COMMENT: Findings are as described above. at 1457 Reported and signed by: America Schuler MD CC: Elbert Wilson MD Technologist: Shaan Prakash ins,RT(R) CTDI: DLP: Trnscrpt: 01/04/2020 (1457) tSCARGVG [facility] NAME: MARGE FRANCO [facility] [address] [place] [address] PHYS: Elbert Rodrigues MD : 1980 AGE: 39 SEX: F [place] [address] LOC: Y.RAD PHONE #: [phone] EXAM DATE: 01/04/2020 STATUS: REG CLI FAX #: [phone] RAD #: D/C DT PAGE 1 Signed Report Patient Name: MARGE FRANCOOTILDE Unit No: [id number] EXAMS: CPT CODE: [id number] CT LOWER EXTRM W/[place] [address] (Continued) Orig Print D/T: S: 01/04/2020 (1500) [facility] [address] PHYS: Elbert Rodrigues MD : 1980 AGE: 39 SEX: F [place] [address] LOC: Y.RAD PHONE #: [phone] EXAM DATE: 01/04/2020 STATUS: REG CLI FAX #: [phone] RAD #: D/C DT PAGE 2 Signed ReportCULTURE, URINE 2019-12-22 00:00:00 Test Item Value Reference Range Interpretation Comments CULTURE, URINE (test SPECIMEN NUMBER: code = 14871) [id number] LIPID [id number] 00:00:00 Test Item Value Reference Range Interpretation Comments CHOLESTEROL (test code = 2210) 354 MG/DL TRIGLYCERIDES (test code = 2232) 2608 MG/DL HDL CHOLESTEROL (test code = 19 MG/DL 2220) CALC LDL CHOL (test code = 2237) NOTE MG/DL RISK RATIO LDL/HDL (test code = (NOTE) RATIO 2238) HEMOGLOBIN [id number] 00:00:00 Test Item Value Reference Range Interpretation Comments HEMOGLOBIN A1c (test code = 73506) 11.5 % HEMOGLOBIN [id number] 00:00:00 Test Item Value Reference Range Interpretation Comments HEMOGLOBIN A1c (test code = 99892) 11.5 % MICROALBUMIN/CREATININE, RANDOM AND [id number] 00:00:00 Test Item Value Reference Range Interpretation Comments CREATININE, URINE, CONC. (test 92.4 MG/DL code = 2072) ALBUMIN, URINE, RANDOM (test code 158.5 MG/DL = 25161) CALC ALBUMIN/CREAT, RND (test 1715 MG/G code = 24957) CULTURE, [id number] 00:00:00 Test Item Value Reference Range Interpretation Comments CULTURE, URINE (test SPECIMEN NUMBER: code = 81060) [id number] VAGINAL PATHOGENS DNA [id number] 00:00:00 Test Item Value Reference Range Interpretation Comments ANDIE SPECIES (test code = 47510) POSITIVE G. VAGINALIS (test code = 37468) NEGATIVE T. VAGINALIS (test code = 77805) NEGATIVE VAGINAL PATHOGENS DNA [id number] 00:00:00 Test Item Value Reference Range Interpretation Comments ANDIE SPECIES (test code = 47975) NEGATIVE G. VAGINALIS (test code = 37199) NEGATIVE T. VAGINALIS (test code = 90416) NEGATIVE VAGINAL PATHOGENS DNA [id number] 00:00:00 Test Item Value Reference Range Interpretation Comments ANDIE SPECIES (test code = 73611) NEGATIVE G. VAGINALIS (test code = 97056) POSITIVE T. VAGINALIS (test code = 23499) NEGATIVE COMPREHENSIVE METABOLIC [id number] 00:00:00 Test Item Value Reference Range Interpretation Comments GLUCOSE (test code = 2217) 353 MG/DL BUN (test code = 2208) 27 MG/DL CREATININE (test code = 2214) 0.90 MG/DL eGFR AMER. (test code 92 ML/MIN/1.73 = 26167) eGFR NON- AMER. (test 79 ML/MIN/1.73 code = 77835) CALC BUN/CREAT (test code = 30 RATIO 2235) SODIUM (test code = 2231) 135 MEQ/L POTASSIUM (test code = 2228) 3.8 MEQ/L CHLORIDE (test code = 2215) 91 MEQ/L CARBON DIOXIDE (test code = 23 MEQ/L 2205) CALCIUM (test code = 2209) 10.0 MG/DL PROTEIN, TOTAL (test code = 7.7 G/DL 2228) ALBUMIN (test code = 2201) 4.7 G/DL CALC GLOBULIN (test code = 3.0 G/DL 2240) CALC A/G RATIO (test code = 1.6 RATIO 2234) BILIRUBIN, TOTAL (test code = 0.3 MG/DL 2206) ALKALINE PHOSPHATASE (test 59 U/L code = 2204) AST (test code = 2218) 13 U/L ALT (test code = 2219) 18 U/L LIPID [id number] 00:00:00 Test Item Value Reference Range Interpretation Comments CHOLESTEROL (test code = 2210) 412 MG/DL TRIGLYCERIDES (test code = 2232) 2520 MG/DL HDL CHOLESTEROL (test code = 16 MG/DL 0) CALC LDL CHOL (test code = 2237) NOTE MG/DL RISK RATIO LDL/HDL (test code = (NOTE) RATIO 2238) HEMOGLOBIN [id number] 00:00:00 Test Item Value Reference Range Interpretation Comments HEMOGLOBIN A1c (test code = 34583) 10.7 % HEMOGLOBIN [id number] 00:00:00 Test Item Value Reference Range Interpretation Comments HEMOGLOBIN A1c (test code = 59046) 10.7 % [id number] 00:00:00 Test Item Value Reference Range Interpretation Comments TSH, THIRD GENERATION (test code 0.777 UIU/ML = 2821) [id number] 00:00:00 Test Item Value Reference Range Interpretation Comments TSH, THIRD GENERATION (test code 0.777 UIU/ML = 2821) MICROALBUMIN/CREATININE, RANDOM AND [id number] 00:00:00 Test Item Value Reference Range Interpretation Comments CREATININE, URINE, CONC. (test 127.3 MG/DL code = 2072) ALBUMIN, URINE, RANDOM (test code 65.2 MG/DL = 71379) CALC ALBUMIN/CREAT, RND (test 512 MG/G code = 43331) CULTURE, [id number] 00:00:00 Test Item Value Reference Range Interpretation Comments CULTURE, URINE (test SPECIMEN NUMBER: code = 89720) [id number] VAGINAL PATHOGENS DNA [id number] 00:00:00 Test Item Value Reference Range Interpretation Comments ANDIE SPECIES (test code = ) NEGATIVE G. VAGINALIS (test code = ) NEGATIVE T. VAGINALIS (test code = ) NEGATIVE COMPREHENSIVE METABOLIC PANEL [ADDED]2018-05-24 00:00:00 Test Item Value Reference Range Interpretation Comments GLUCOSE (test code = 2217) 198 MG/DL BUN (test code = 2208) 18 MG/DL CREATININE (test code = 2214) 0.86 MG/DL eGFR AMER. (test code 98 ML/MIN/1.73 = 15764) eGFR NON- AMER. (test 84 ML/MIN/1.73 code = 39676) CALC BUN/CREAT (test code = 21 RATIO 2235) SODIUM (test code = 2231) 139 MEQ/L POTASSIUM (test code = 2228) 4.3 MEQ/L CHLORIDE (test code = 2215) 99 MEQ/L CARBON DIOXIDE (test code = 23 MEQ/L 2205) CALCIUM (test code = 2209) 10.0 MG/DL PROTEIN, TOTAL (test code = 7.7 G/DL 2228) ALBUMIN (test code = 2201) 4.8 G/DL CALC GLOBULIN (test code = 2.9 G/DL 0) CALC A/G RATIO (test code = 1.7 RATIO 4) BILIRUBIN, TOTAL (test code = 0.3 MG/DL 2206) ALKALINE PHOSPHATASE (test 42 U/L code = 2204) AST (test code = 2218) 25 U/L ALT (test code = 2219) 32 U/L LIPID PANEL [ADDED]2018-05-24 00:00:00 Test Item Value Reference Range Interpretation Comments CHOLESTEROL (test code = 2210) 221 MG/DL TRIGLYCERIDES (test code = 2232) 477 MG/DL HDL CHOLESTEROL (test code = 37 MG/DL 2219) CALC LDL CHOL (test code = 2237) NOTE MG/DL RISK RATIO LDL/HDL (test code = (NOTE) RATIO 2238) HEMOGLOBIN A1c [ADDED]2018-05-24 00:00:00 Test Item Value Reference Range Interpretation Comments HEMOGLOBIN A1c (test code = 22659) 10.1 % HEMOGLOBIN A1c [ADDED]2018-05-24 00:00:00 Test Item Value Reference Range Interpretation Comments HEMOGLOBIN A1c (test code = 55679) 10.1 % HEMOGLOBIN [id number] 00:00:00 Test Item Value Reference Range Interpretation Comments HEMOGLOBIN A1c (test code = 21877) 8.5 % HEMOGLOBIN [id number] 00:00:00 Test Item Value Reference Range Interpretation Comments HEMOGLOBIN A1c (test code = 95925) 8.5 % COMPREHENSIVE METABOLIC [id number] 00:00:00 Test Item Value Reference Range Interpretation Comments GLUCOSE (test code = 2217) 131 MG/DL BUN (test code = 2208) 16 MG/DL CREATININE (test code = 2214) 0.71 MG/DL eGFR AMER. (test code 124 ML/MIN/1.73 = 61272) eGFR NON- AMER. (test 107 ML/MIN/1.73 code = 41828) CALC BUN/CREAT (test code = 23 RATIO 2235) SODIUM (test code = 2231) 140 MEQ/L POTASSIUM (test code = 2228) 3.8 MEQ/L CHLORIDE (test code = 2215) 96 MEQ/L CARBON DIOXIDE (test code = 27 MEQ/L 2205) CALCIUM (test code = 2209) 9.9 MG/DL PROTEIN, TOTAL (test code = 7.4 G/DL 2228) ALBUMIN (test code = 2201) 4.6 G/DL CALC GLOBULIN (test code = 2.8 G/DL 2240) CALC A/G RATIO (test code = 1.6 RATIO 2234) BILIRUBIN, TOTAL (test code = 0.4 MG/DL 2206) ALKALINE PHOSPHATASE (test 32 U/L code = 2204) AST (test code = 2218) 26 U/L ALT (test code = 2219) 33 U/L LIPID [id number] 00:00:00 Test Item Value Reference Range Interpretation Comments CHOLESTEROL (test code = 2210) 201 MG/DL TRIGLYCERIDES (test code = 2232) 1014 MG/DL HDL CHOLESTEROL (test code = 25 MG/DL 0) CALC LDL CHOL (test code = 2237) NOTE MG/DL RISK RATIO LDL/HDL (test code = (NOTE) RATIO 2238) CULTURE, HERPES [id number] 00:00:00 Test Item Value Reference Range Interpretation Comments SPECIMEN SOURCE (test code = 76143) LABIA HERPES CULTURE (test code = 3533) NEGATIVE VAGINAL PATHOGENS DNA [id number] 00:00:00 Test Item Value Reference Range Interpretation Comments ANDIE SPECIES (test code = ) NEGATIVE G. VAGINALIS (test code = ) NEGATIVE T. VAGINALIS (test code = ) NEGATIVE COMPREHENSIVE METABOLIC [id number] 00:00:00 Test Item Value Reference Range Interpretation Comments GLUCOSE (test code = 2217) 138 MG/DL BUN (test code = 2208) 13 MG/DL CREATININE (test code = 2214) 0.50 MG/DL eGFR AMER. (test code 141 ML/MIN/1.73 = 28506) eGFR NON- AMER. (test 122 ML/MIN/1.73 code = 73126) CALC BUN/CREAT (test code = 26 RATIO 2235) SODIUM (test code = 2231) 141 MEQ/L POTASSIUM (test code = 2228) 4.3 MEQ/L CHLORIDE (test code = 2215) 99 MEQ/L CARBON DIOXIDE (test code = 24 MEQ/L 2205) CALCIUM (test code = 2209) 9.3 MG/DL PROTEIN, TOTAL (test code = 7.6 G/DL 2228) ALBUMIN (test code = 2201) 4.2 G/DL CALC GLOBULIN (test code = 3.4 G/DL 2240) CALC A/G RATIO (test code = 1.2 RATIO 4) BILIRUBIN, TOTAL (test code = 0.2 MG/DL 2206) ALKALINE PHOSPHATASE (test 58 U/L code = 2204) AST (test code = 2218) 39 U/L ALT (test code = 2219) 41 U/L LIPID [id number] 00:00:00 Test Item Value Reference Range Interpretation Comments CHOLESTEROL (test code = 2210) 359 MG/DL TRIGLYCERIDES (test code = 2232) 1659 MG/DL HDL CHOLESTEROL (test code = 15 MG/DL 2219) CALC LDL CHOL (test code = 2237) NOTE MG/DL RISK RATIO LDL/HDL (test code = (NOTE) RATIO 2238) CBC W/AUTO [id number] 00:00:00 Test Item Value Reference Range Interpretation Comments WBC (test code = 1001) 7.3 K/UL RBC (test code = 1002) 4.17 M/UL HEMOGLOBIN (test code = 1003) 12.0 G/DL HEMATOCRIT (test code = 1004) 35.3 % MCV (test code = 1005) 84.7 fL MCH (test code = 1006) 28.8 PG MCHC (test code = 1007) 34.0 G/DL RDW (test code = 1038) 13.9 % NEUTROPHILS (test code = 1008) 63.6 % LYMPHOCYTES (test code = 1010) 26.5 % MONOCYTES (test code = 1011) 6.6 % EOSINOPHILS (test code = 1012) 2.3 % BASOPHILS (test code = 1013) 1.0 % PLATELET COUNT (test code = 1015) 287 K/UL CBC W/AUTO [id number] 00:00:00 Test Item Value Reference Range Interpretation Comments WBC (test code = 1001) 7.3 K/UL RBC (test code = 1002) 4.17 M/UL HEMOGLOBIN (test code = 1003) 12.0 G/DL HEMATOCRIT (test code = 1004) 35.3 % MCV (test code = 1005) 84.7 fL MCH (test code = 1006) 28.8 PG MCHC (test code = 1007) 34.0 G/DL RDW (test code = 1038) 13.9 % NEUTROPHILS (test code = 1008) 63.6 % LYMPHOCYTES (test code = 1010) 26.5 % MONOCYTES (test code = 1011) 6.6 % EOSINOPHILS (test code = 1012) 2.3 % BASOPHILS (test code = 1013) 1.0 % PLATELET COUNT (test code = 1015) 287 K/UL HEMOGLOBIN [id number] 00:00:00 Test Item Value Reference Range Interpretation Comments HEMOGLOBIN A1c (test code = 11050) 9.8 % HEMOGLOBIN [id number] 00:00:00 Test Item Value Reference Range Interpretation Comments HEMOGLOBIN A1c (test code = 96354) 9.8 % [id number] 00:00:00 Test Item Value Reference Range Interpretation Comments TSH (test code = 2821) 2.110 UIU/ML [id number] 00:00:00 Test Item Value Reference Range Interpretation Comments TSH (test code = 2821) 2.110 UIU/ML LIPID [id number] 00:00:00 Test Item Value Reference Range Interpretation Comments CHOLESTEROL (test code = 2210) 195 MG/DL TRIGLYCERIDES (test code = 2232) 505 MG/DL HDL CHOLESTEROL (test code = 35 MG/DL 2220) CALC LDL CHOL (test code = 2237) NOTE MG/DL RISK RATIO LDL/HDL (test code = (NOTE) RATIO 2238) THYROID II PROFILE (T3U, T4, T7, TSH)[id number] 00:00:00 Test Item Value Reference Range Interpretation Comments T3 UPTAKE (test code = 2817) 30.5 % T4 (THYROXINE) (test code = 7.4 UG/DL 281) CALCULATED T7 (FTI) (test code = 2.26 2820) TSH (test code = 2821) 2.000 UIU/ML COMPREHENSIVE METABOLIC [id number] 00:00:00 Test Item Value Reference Range Interpretation Comments GLUCOSE (test code = 2217) 154 MG/DL BUN (test code = 2208) 12 MG/DL CREATININE (test code = 2214) 0.54 MG/DL eGFR AMER. (test code 139 ML/MIN/1.73 = 36657) eGFR NON- AMER. (test 120 ML/MIN/1.73 code = 25631) CALC BUN/CREAT (test code = 22 RATIO 2235) SODIUM (test code = 2231) 141 MEQ/L POTASSIUM (test code = 2228) 4.3 MEQ/L CHLORIDE (test code = 2215) 101 MEQ/L CARBON DIOXIDE (test code = 26 MEQ/L 2206) CALCIUM (test code = 2209) 9.8 MG/DL PROTEIN, TOTAL (test code = 7.6 G/DL 2228) ALBUMIN (test code = 2201) 4.7 G/DL CALC GLOBULIN (test code = 2.9 G/DL 2240) CALC A/G RATIO (test code = 1.6 RATIO 2234) BILIRUBIN, TOTAL (test code = 0.1 MG/DL 220) ALKALINE PHOSPHATASE (test 42 U/L code = 2204) AST (test code = 2218) 17 U/L ALT (test code = 2219) 22 U/L LIPID [id number] 00:00:00 Test Item Value Reference Range Interpretation Comments CHOLESTEROL (test code = 2210) 243 MG/DL TRIGLYCERIDES (test code = 2232) 1140 MG/DL HDL CHOLESTEROL (test code = 31 MG/DL 2220) CALC LDL CHOL (test code = 2237) NOTE MG/DL RISK RATIO LDL/HDL (test code = (NOTE) RATIO 2238) CBC W/AUTO [id number] 00:00:00 Test Item Value Reference Range Interpretation Comments WBC (test code = 1001) 7.0 K/UL RBC (test code = 1002) 4.41 M/UL HEMOGLOBIN (test code = 1003) 12.5 G/DL HEMATOCRIT (test code = 1004) 36.5 % MCV (test code = 1005) 82.8 fL MCH (test code = 1006) 28.3 PG MCHC (test code = 1007) 34.2 G/DL RDW (test code = 1038) 14.2 % NEUTROPHILS (test code = 1008) 58.2 % LYMPHOCYTES (test code = 1010) 32.8 % MONOCYTES (test code = 1011) 6.4 % EOSINOPHILS (test code = 1012) 1.9 % BASOPHILS (test code = 1013) 0.7 % PLATELET COUNT (test code = 1015) 229 K/UL CBC W/AUTO [id number] 00:00:00 Test Item Value Reference Range Interpretation Comments WBC (test code = 1001) 7.0 K/UL RBC (test code = 1002) 4.41 M/UL HEMOGLOBIN (test code = 1003) 12.5 G/DL HEMATOCRIT (test code = 1004) 36.5 % MCV (test code = 1005) 82.8 fL MCH (test code = 1006) 28.3 PG MCHC (test code = 1007) 34.2 G/DL RDW (test code = 1038) 14.2 % NEUTROPHILS (test code = 1008) 58.2 % LYMPHOCYTES (test code = 1010) 32.8 % MONOCYTES (test code = 1011) 6.4 % EOSINOPHILS (test code = 1012) 1.9 % BASOPHILS (test code = 1013) 0.7 % PLATELET COUNT (test code = 1015) 229 K/UL HEMOGLOBIN [id number] 00:00:00 Test Item Value Reference Range Interpretation Comments HEMOGLOBIN A1c (test code = 80648) 7.7 % HEMOGLOBIN [id number] 00:00:00 Test Item Value Reference Range Interpretation Comments HEMOGLOBIN A1c (test code = 94377) 7.7 % [id number] 00:00:00 Test Item Value Reference Range Interpretation Comments MAGNESIUM (test code = 2226) 1.4 MG/DL [id number] 00:00:00 Test Item Value Reference Range Interpretation Comments MAGNESIUM (test code = 2226) 1.4 MG/DL COMPREHENSIVE METABOLIC [id number] 00:00:00 Test Item Value Reference Range Interpretation Comments GLUCOSE (test code = 2217) 234 MG/DL BUN (test code = 2208) 17 MG/DL CREATININE (test code = 2214) 0.54 MG/DL eGFR AMER. (test code 139 ML/MIN/1.73 = 63847) eGFR NON- AMER. (test 120 ML/MIN/1.73 code = 46683) CALC BUN/CREAT (test code = 31 RATIO 5) SODIUM (test code = 2231) 136 MEQ/L POTASSIUM (test code = 2228) 4.7 MEQ/L CHLORIDE (test code = 2215) 95 MEQ/L CARBON DIOXIDE (test code = 21 MEQ/L 2205) CALCIUM (test code = 2209) 10.0 MG/DL PROTEIN, TOTAL (test code = 7.5 G/DL 2228) ALBUMIN (test code = 2201) 4.3 G/DL CALC GLOBULIN (test code = 3.2 G/DL 2239) CALC A/G RATIO (test code = 1.3 RATIO 2233) BILIRUBIN, TOTAL (test code = 0.2 MG/DL 2206) ALKALINE PHOSPHATASE (test 53 U/L code = 2204) AST (test code = 2218) 16 U/L ALT (test code = 2219) 22 U/L HEMOGLOBIN [id number] 00:00:00 Test Item Value Reference Range Interpretation Comments HEMOGLOBIN A1c (test code = 91359) 7.7 % HEMOGLOBIN [id number] 00:00:00 Test Item Value Reference Range Interpretation Comments HEMOGLOBIN A1c (test code = 92030) 7.7 % CBC W/AUTO [id number] 00:00:00 Test Item Value Reference Range Interpretation Comments WBC (test code = 1001) 8.2 K/UL RBC (test code = 1002) 4.35 M/UL HEMOGLOBIN (test code = 1003) 11.9 G/DL HEMATOCRIT (test code = 1004) 37.1 % MCV (test code = 1005) 85.3 fL MCH (test code = 1006) 27.4 PG MCHC (test code = 1007) 32.1 G/DL RDW (test code = 1038) 14.5 % NEUTROPHILS (test code = 1008) 62.0 % LYMPHOCYTES (test code = 1010) 27.4 % MONOCYTES (test code = 1011) 7.8 % EOSINOPHILS (test code = 1012) 2.1 % BASOPHILS (test code = 1013) 0.7 % PLATELET COUNT (test code = 1015) 224 K/UL CBC W/AUTO [id number] 00:00:00 Test Item Value Reference Range Interpretation Comments WBC (test code = 1001) 8.2 K/UL RBC (test code = 1002) 4.35 M/UL HEMOGLOBIN (test code = 1003) 11.9 G/DL HEMATOCRIT (test code = 1004) 37.1 % MCV (test code = 1005) 85.3 fL MCH (test code = 1006) 27.4 PG MCHC (test code = 1007) 32.1 G/DL RDW (test code = 1038) 14.5 % NEUTROPHILS (test code = 1008) 62.0 % LYMPHOCYTES (test code = 1010) 27.4 % MONOCYTES (test code = 1011) 7.8 % EOSINOPHILS (test code = 1012) 2.1 % BASOPHILS (test code = 1013) 0.7 % PLATELET COUNT (test code = 1015) 224 K/UL THYROID II PROFILE (T3U, T4, T7, TSH)[id number] 00:00:00 Test Item Value Reference Range Interpretation Comments T3 UPTAKE (test code = 2817) 24.7 % T4 (THYROXINE) (test code = 3.7 UG/DL 2819) CALCULATED T7 (FTI) (test code = 0.91 2820) TSH (test code = 2821) <0.10 UIU/ML MARKO (ANTI-NUCLEAR AB) WITH REFLEX [id number] 00:00:00 Test Item Value Reference Range Interpretation Comments ANTI-NUCLEAR ANTIBODIES (test code = NEGATIVE 4851) DHEA [id number] 00:00:00 Test Item Value Reference Range Interpretation Comments DHEA SULFATE (test code = 4225) 77 UG/DL VITAMIN D,1,07-[id number] 00:00:00 Test Item Value Reference Range Interpretation Comments VITAMIN D,1,25-DIHYDROXY (test 11.3 PG/ML code = 4960) VITAMIN B 12 AND FOLIC [id number] 00:00:00 Test Item Value Reference Range Interpretation Comments VITAMIN B-12 (test code = 2840) 925 PG/ML FOLIC ACID (test code = 2695) >24.0 NG/ML THYROID II PROFILE (T3U, T4, T7, TSH)2016-03-22 00:00:00 Test Item Value Reference Range Interpretation Comments T3 UPTAKE (test code = 2817) 31.0 % T4 (THYROXINE) (test code = 2819) 7.4 UG/DL CALCULATED T7 (FTI) (test code = 2.29 2820) TSH (test code = 2821) 0.4 UIU/ML LIPID [id number] 00:00:00 Test Item Value Reference Range Interpretation Comments CHOLESTEROL (test code = 2210) 172 MG/DL TRIGLYCERIDES (test code = 2232) 136 MG/DL HDL CHOLESTEROL (test code = 2220) 44 MG/DL CALC LDL CHOL (test code = 2237) 101 MG/DL RISK RATIO LDL/HDL (test code = 2.29 RATIO 2238) [id number] 00:00:00 Test Item Value Reference Range Interpretation Comments TESTOSTERONE (test code = 2830) <12 NG/DL TESTOSTERONE REF RANGE (test code = (NOTE) 11236) [id number] 00:00:00 Test Item Value Reference Range Interpretation Comments PROLACTIN (test code = 2800) 5.8 NG/ML FSH + LH [id number] 00:00:00 Test Item Value Reference Range Interpretation Comments FOLLICLE STIM HORMONE (test code = 8.9 MIU/ML 2700) LUTEINIZING HORMONE (test code = 6.5 MIU/ML 2776) SEDIMENTATION [id number] 00:00:00 Test Item Value Reference Range Interpretation Comments SEDIMENTATION RATE (test code = 35 MM/HOUR 1017) CBC W/AUTO [id number] 00:00:00 Test Item Value Reference Range Interpretation Comments WBC (test code = 1001) 5.9 K/UL RBC (test code = 1002) 4.09 M/UL HEMOGLOBIN (test code = 1003) 11.6 G/DL HEMATOCRIT (test code = 1004) 34.7 % MCV (test code = 1005) 84.8 fL MCH (test code = 1006) 28.4 PG MCHC (test code = 1007) 33.4 G/DL RDW (test code = 1038) 14.4 % NEUTROPHILS (test code = 1008) 48.7 % LYMPHOCYTES (test code = 1010) 41.7 % MONOCYTES (test code = 1011) 6.3 % EOSINOPHILS (test code = 1012) 2.6 % BASOPHILS (test code = 1013) 0.7 % PLATELET COUNT (test code = 1015) 246 K/UL CBC W/AUTO [id number] 00:00:00 Test Item Value Reference Range Interpretation Comments WBC (test code = 1001) 5.9 K/UL RBC (test code = 1002) 4.09 M/UL HEMOGLOBIN (test code = 1003) 11.6 G/DL HEMATOCRIT (test code = 1004) 34.7 % MCV (test code = 1005) 84.8 fL MCH (test code = 1006) 28.4 PG MCHC (test code = 1007) 33.4 G/DL RDW (test code = 1038) 14.4 % NEUTROPHILS (test code = 1008) 48.7 % LYMPHOCYTES (test code = 1010) 41.7 % MONOCYTES (test code = 1011) 6.3 % EOSINOPHILS (test code = 1012) 2.6 % BASOPHILS (test code = 1013) 0.7 % PLATELET COUNT (test code = 1015) 246 K/UL HEMOGLOBIN [id number] 00:00:00 Test Item Value Reference Range Interpretation Comments HEMOGLOBIN A1c (test code = 07122) 6.2 % HEMOGLOBIN [id number] 00:00:00 Test Item Value Reference Range Interpretation Comments HEMOGLOBIN A1c (test code = 20666) 6.2 % COMPREHENSIVE METABOLIC [id number] 00:00:00 Test Item Value Reference Range Interpretation Comments GLUCOSE (test code = 2217) 100 MG/DL BUN (test code = 2208) 10 MG/DL CREATININE (test code = 2214) 0.61 MG/DL eGFR AMER. (test code 134 ML/MIN/1.73 = 63489) eGFR NON- AMER. (test 116 ML/MIN/1.73 code = 61847) CALCULATED BUN/CREAT (test 16 RATIO code = 2235) SODIUM (test code = 2231) 145 MEQ/L POTASSIUM (test code = 2228) 4.6 MEQ/L CHLORIDE (test code = 2215) 105 MEQ/L CARBON DIOXIDE (test code = 19 MEQ/L 2205) CALCIUM (test code = 2209) 9.8 MG/DL PROTEIN, TOTAL (test code = 7.8 G/DL 2228) ALBUMIN (test code = 2201) 4.7 G/DL CALCULATED GLOBULIN (test 3.1 G/DL code = 2240) CALCULATED A/G RATIO (test 1.5 RATIO code = 2234) BILIRUBIN, TOTAL (test code = 0.2 MG/DL 2206) ALKALINE PHOSPHATASE (test 35 U/L code = 220) SGOT (AST) (test code = 221) 16 U/L SGPT (ALT) (test code = 221) 16 U/L LIPID [id number] 00:00:00 Test Item Value Reference Range Interpretation Comments CHOLESTEROL (test code = 2210) 166 MG/DL TRIGLYCERIDES (test code = 2232) 72 MG/DL HDL CHOLESTEROL (test code = 2220) 47 MG/DL CALCULATED LDL CHOL (test code = 105 MG/DL 2236) RISK RATIO LDL/HDL (test code = 2.23 RATIO 8) [id number] 00:00:00 Test Item Value Reference Range Interpretation Comments TSH (test code = 2821) 1.2 UIU/ML [id number] 00:00:00 Test Item Value Reference Range Interpretation Comments TSH (test code = 2821) 1.2 UIU/ML CBC W/AUTO [id number] 00:00:00 Test Item Value Reference Range Interpretation Comments WBC (test code = 1001) 7.5 K/UL RBC (test code = 1002) 4.24 M/UL HEMOGLOBIN (test code = 1003) 11.7 G/DL HEMATOCRIT (test code = 1004) 36.3 % MCV (test code = 1005) 85.6 fL MCH (test code = 1006) 27.6 PG MCHC (test code = 1007) 32.2 G/DL RDW (test code = 1038) 15.0 % NEUTROPHILS (test code = 1008) 52 % LYMPHOCYTES (test code = 1010) 39 % MONOCYTES (test code = 1011) 6 % EOSINOPHILS (test code = 1012) 2 % BASOPHILS (test code = 1013) 1 % PLATELET COUNT (test code = 1015) 243 K/UL CBC W/AUTO [id number] 00:00:00 Test Item Value Reference Range Interpretation Comments WBC (test code = 1001) 7.5 K/UL RBC (test code = 1002) 4.24 M/UL HEMOGLOBIN (test code = 1003) 11.7 G/DL HEMATOCRIT (test code = 1004) 36.3 % MCV (test code = 1005) 85.6 fL MCH (test code = 1006) 27.6 PG MCHC (test code = 1007) 32.2 G/DL RDW (test code = 1038) 15.0 % NEUTROPHILS (test code = 1008) 52 % LYMPHOCYTES (test code = 1010) 39 % MONOCYTES (test code = 1011) 6 % EOSINOPHILS (test code = 1012) 2 % BASOPHILS (test code = 1013) 1 % PLATELET COUNT (test code = 1015) 243 K/UL HEMOGLOBIN [id number] 00:00:00 Test Item Value Reference Range Interpretation Comments HEMOGLOBIN A1c (test code = 22169) 6.4 % HEMOGLOBIN [id number] 00:00:00 Test Item Value Reference Range Interpretation Comments HEMOGLOBIN A1c (test code = 77788) 6.4 % CHLAMYDIA, AMPLIFIED, [id number] 00:00:00 Test Item Value Reference Range Interpretation Comments CHLAMYDIA, AMPLIFIED (test code = NEGATIVE 09370) GC, AMPLIFIED, [id number] 00:00:00 Test Item Value Reference Range Interpretation Comments GONORRHEA, AMPLIFIED (test code = NEGATIVE 03072) HIV AB/AG COMBO RFLX [id number] 00:00:00 Test Item Value Reference Range Interpretation Comments HIV AB/AG COMBO RFLX CONF (test NON-REACTIVE code = 3514) [id number] 00:00:00 Test Item Value Reference Range Interpretation Comments RPR RESULT (test code = NON-REACTIVE 3501) RPR TITER (test code = 3500) NOT INDIC. TITER [id number] 00:00:00 Test Item Value Reference Range Interpretation Comments RPR RESULT (test code = NON-REACTIVE 3501) RPR TITER (test code = 3500) NOT INDIC. TITER HEPATITIS PROFILE (A,B,C)[id number] 00:00:00 Test Item Value Reference Range Interpretation Comments HEPATITIS A TOTAL AB (test code REACTIVE = 2725) HEPATITIS B SURF AG (test code = NON-REACTIVE 2739) HEP B CORE TOTAL AB (test code = NON-REACTIVE 2729) HEPATITIS B SURFACE AB (test NON-REACTIVE code = 2737) HEPATITIS C ANTIBODY (test code NON-REACTIVE = 4675) INTERPRETATION HEPATITIS A: (NOTE) (test code = 2552) INTERPRETATION HEPATITIS B: (NOTE) (test code = 01660) INTERPRETATION HEPATITIS C: (NOTE) (test code = 10164) COMPREHENSIVE METABOLIC [id number] 00:00:00 Test Item Value Reference Range Interpretation Comments GLUCOSE (test code = 2217) 105 MG/DL BUN (test code = 2208) 11 MG/DL CREATININE (test code = 2214) 0.80 MG/DL eGFR AMER. (test code 109 ML/MIN/1.73 = 77821) eGFR NON- AMER. (test 94 ML/MIN/1.73 code = 81553) CALCULATED BUN/CREAT (test 14 RATIO code = 2235) SODIUM (test code = 2231) 139 MEQ/L POTASSIUM (test code = 2228) 3.8 MEQ/L CHLORIDE (test code = 2215) 102 MEQ/L CARBON DIOXIDE (test code = 22 MEQ/L 220) CALCIUM (test code = 2209) 9.4 MG/DL PROTEIN, TOTAL (test code = 7.4 G/DL 2228) ALBUMIN (test code = 2201) 4.4 G/DL CALCULATED GLOBULIN (test 3.0 G/DL code = 2240) CALCULATED A/G RATIO (test 1.5 RATIO code = 2234) BILIRUBIN, TOTAL (test code = 0.5 MG/DL 2206) ALKALINE PHOSPHATASE (test 36 U/L code = 2204) SGOT (AST) (test code = 2218) 14 U/L SGPT (ALT) (test code = 2219) 14 U/L LIPID [id number] 00:00:00 Test Item Value Reference Range Interpretation Comments CHOLESTEROL (test code = 2210) 211 MG/DL TRIGLYCERIDES (test code = 2232) 209 MG/DL HDL CHOLESTEROL (test code = 2220) 38 MG/DL CALCULATED LDL CHOL (test code = 131 MG/DL 2237) RISK RATIO LDL/HDL (test code = 3.45 RATIO 2238) CBC W/AUTO [id number] 00:00:00 Test Item Value Reference Range Interpretation Comments WBC (test code = 1001) 8.2 K/UL RBC (test code = 1002) 4.16 M/UL HEMOGLOBIN (test code = 1003) 11.9 G/DL HEMATOCRIT (test code = 1004) 35.3 % MCV (test code = 1005) 84.9 fL MCH (test code = 1006) 28.6 PG MCHC (test code = 1007) 33.7 G/DL RDW (test code = 1038) 14.1 % NEUTROPHILS (test code = 1008) 56 % LYMPHOCYTES (test code = 1010) 36 % MONOCYTES (test code = 1011) 6 % EOSINOPHILS (test code = 1012) 1 % BASOPHILS (test code = 1013) % PLATELET COUNT (test code = 1015) 254 K/UL CBC W/AUTO [id number] 00:00:00 Test Item Value Reference Range Interpretation Comments WBC (test code = 1001) 8.2 K/UL RBC (test code = 1002) 4.16 M/UL HEMOGLOBIN (test code = 1003) 11.9 G/DL HEMATOCRIT (test code = 1004) 35.3 % MCV (test code = 1005) 84.9 fL MCH (test code = 1006) 28.6 PG MCHC (test code = 1007) 33.7 G/DL RDW (test code = 1038) 14.1 % NEUTROPHILS (test code = 1008) 56 % LYMPHOCYTES (test code = 1010) 36 % MONOCYTES (test code = 1011) 6 % EOSINOPHILS (test code = 1012) 1 % BASOPHILS (test code = 1013) % PLATELET COUNT (test code = 1015) 254 K/UL HEMOGLOBIN [id number] 00:00:00 Test Item Value Reference Range Interpretation Comments HEMOGLOBIN A1c (test code = 83106) 6.9 % HEMOGLOBIN [id number] 00:00:00 Test Item Value Reference Range Interpretation Comments HEMOGLOBIN A1c (test code = 84719) 6.9 % [id number] 00:00:00 Test Item Value Reference Range Interpretation Comments TSH (test code = 2821) 0.5 UIU/ML [id number] 00:00:00 Test Item Value Reference Range Interpretation Comments TSH (test code = 2821) 0.5 UIU/ML HEPATITIS A IgM [REFLEX][id number] 00:00:00 Test Item Value Reference Range Interpretation Comments HEPATITIS A IgM (test code = NON-REACTIVE 6324) COMPREHENSIVE METABOLIC [id number] 00:00:00 Test Item Value Reference Range Interpretation Comments GLUCOSE (test code = 2217) 113 MG/DL BUN (test code = 2208) 22 MG/DL CREATININE (test code = 2214) 0.9 MG/DL eGFR AMER. (test code 85 ML/MIN/1.73 = 61198) eGFR NON- AMER. (test 70 ML/MIN/1.73 code = 56097) CALCULATED BUN/CREAT (test 24 RATIO code = 2235) SODIUM (test code = 2231) 138 MEQ/L POTASSIUM (test code = 2228) 4.6 MEQ/L CHLORIDE (test code = 2215) 102 MEQ/L CARBON DIOXIDE (test code = 22 MEQ/L 2205) CALCIUM (test code = 2209) 10.6 MG/DL PROTEIN, TOTAL (test code = 8.1 G/DL 2228) ALBUMIN (test code = 2201) 4.7 G/DL CALCULATED GLOBULIN (test code 3.4 G/DL = 2240) CALCULATED A/G RATIO (test 1.4 RATIO code = 2234) BILIRUBIN, TOTAL (test code = 0.4 MG/DL 2206) ALKALINE PHOSPHATASE (test 50 U/L code = 2204) SGOT (AST) (test code = 2218) 21 U/L SGPT (ALT) (test code = 2219) 24 U/L CBC W/AUTO [id number] 00:00:00 Test Item Value Reference Range Interpretation Comments WBC (test code = 1001) 9.9 K/UL RBC (test code = 1002) 4.57 M/UL HEMOGLOBIN (test code = 1003) 12.6 G/DL HEMATOCRIT (test code = 1004) 38.9 % MCV (test code = 1005) 85.1 fL MCH (test code = 1006) 27.6 PG MCHC (test code = 1007) 32.4 G/DL RDW (test code = 1038) 15.2 % NEUTROPHILS (test code = 1008) 57 % LYMPHOCYTES (test code = 1010) 36 % MONOCYTES (test code = 1011) 6 % EOSINOPHILS (test code = 1012) 1 % BASOPHILS (test code = 1013) 1 % PLATELET COUNT (test code = 1015) 270 K/UL CBC W/AUTO [id number] 00:00:00 Test Item Value Reference Range Interpretation Comments WBC (test code = 1001) 9.9 K/UL RBC (test code = 1002) 4.57 M/UL HEMOGLOBIN (test code = 1003) 12.6 G/DL HEMATOCRIT (test code = 1004) 38.9 % MCV (test code = 1005) 85.1 fL MCH (test code = 1006) 27.6 PG MCHC (test code = 1007) 32.4 G/DL RDW (test code = 1038) 15.2 % NEUTROPHILS (test code = 1008) 57 % LYMPHOCYTES (test code = 1010) 36 % MONOCYTES (test code = 1011) 6 % EOSINOPHILS (test code = 1012) 1 % BASOPHILS (test code = 1013) 1 % PLATELET COUNT (test code = 1015) 270 K/UL HEMOGLOBIN [id number] 00:00:00 Test Item Value Reference Range Interpretation Comments HEMOGLOBIN A1c (test code = 51577) 7.3 % HEMOGLOBIN [id number] 00:00:00 Test Item Value Reference Range Interpretation Comments HEMOGLOBIN A1c (test code = 90356) 7.3 %"
[2022-03-02] MEDS ORDERED: HYDROCODONE/APAP 5/325 MG TAB ONE (18:11)
[2022-03-02] MEDS ORDERED: LORAZEPAM 1 MG TABLET ONE (18:12)
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
[2022-03-02] MEDS ORDERED: MORPHINE 4 MG/ML SYR ONE (19:09)
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
[2022-03-02 23:15] VITALS: TEMP 98.6
[2022-03-02 23:37] VITALS: BP 110/70; O2SAT 100
== END 2022-03-02 19:33 | disposition home or self-care (01) ==
LOC: ER 17:08
DX: S09.90XA Unspecified injury of head, initial encounter (principal); S39.012A Strain of muscle, fascia and tendon of lower back, initial encounter; E11.9 Type 2 diabetes mellitus without complications; E78.00 Pure hypercholesterolemia, unspecified; F32.A Depression, unspecified; Z79.4 Long term (current) use of insulin
CPT/HCPCS: 70450; 72125; 72131

== ENCOUNTER 2022-04-10 15:08 | Emergency (ER) | payer OTHER ==
[2022-04-10 15:26] LABS: Urine Blood Negative (Negative); Urine Glucose 2+ (Negative); Urine Protein 2+ (Negative); Urine Specific Gravity 1.025 (1.005-1.030); Urine pH 5.5 (5.0-7.0)
[2022-04-10 15:30] LABS: Urine Specific Gravity/Preg 1.025 (1.005-1.030)
[2022-04-10] MEDS ORDERED: NA CHLORIDE 0.9% 1,000 ML ONE ×2 (15:35→19:41)
[2022-04-10 15:37] LABS: Urine Mucus Slight /HPF (None Seen); Urine RBC <5 /HPF (None Seen)
--- OUTSIDE RECORDS SUMMARY | 2022-04-10 15:39 | XMS REPORT | Continuity of Care Document ---
:1980 Author Organization [facility] t Address [address] [place] [address] Care Team Providers Name Role Phone [phone] Primary Care Physician Unavailable Bebeto Quiroga Attending Clinician Unavailable Elbert Wilson Attending Clinician Unavailable Ernst MEI, Silvina Elise Attending Clinician [phone] BEATRIZ EDUARDO Attending Clinician Unavailable Beatriz Eduardo NP Attending Clinician JN GALLAGHER Attending Clinician Unavailable Jn Gallagher DO Attending Clinician Jade Stout Attending Clinician FOZIA JANG Attending Clinician Unavailable Fozia Jang MD Attending Clinician MARY ESPINOSA Attending Clinician Unavailable Mary Lopez Attending Clinician Droon Thompson MD Attending Clinician DORON THOMPSON Attending Clinician Unavailable BRYSON GONZALEZ Attending Clinician Unavailable FABIO AVALOS Attending Clinician Unavailable Lily Deleon PA-C Attending Clinician LESLEE SMITH Attending Clinician Unavailable LILY DELEON Attending Clinician Unavailable Doctor Unassigned, [place] Attending Clinician Unavailable STANISLAW SUN Attending Clinician Unavailable ABHIJIT GALAN Attending Clinician Unavailable Kit Lopez Attending Clinician Unavailable KNOW, DOES_NOT Admitting Clinician Unavailable Elbert Wilson Admitting Clinician Unavailable Physician, No Primary or Family Admitting Clinician UnavailBEATRIZ Penn Admitting Clinician Unavailable JN GALLAGHER Admitting Clinician Unavailable Bebeto Quiroga Admitting Clinician Unavailable FOZIA JANG Admitting Clinician Unavailable MARY ESPINOSA Admitting Clinician Unavailable MERI BARONE Admitting Clinician Unavailable Kit Lopez Admitting Clinician Unavailable Payers Payer Name Policy Type Policy Number Effective Date Expiration Date Nakul QUINONEZ GENERIC [id number] 2019 00:00:00 COMMERCIAL [id number] 2021 NON-CONTRACT 00:00:00 GENERIC Problems Condition Condition Condition Status Onset Resolution Last Treating Co mments Source Name Details Category Date Date Treatment Clinician Date Essential Essential Disease Active Uni vers hypertensi hypertensi 5-26 it y of on on 00:00: [address] Branch POTS POTS Disease Active Univers (postural (postural 5-26 ity of orthost[place]ost[place] 00 Medical tachycardi tachycardi Br anch a a syndrome) syndrome) Dyslipidem Dyslipidem Disease Active U nivers ia ia 5-26 ity of 00:00: [place] [facility] Branch Atypical Atypical Disease Active Unive rs chest pain chest pain 5-25 it y of 00:00: [place] [facility] Branch Pancreatit Pancreatit Disease Active U nivers is, is, 4-24 ity of recurrent [place] 00:[place] [facility] [place] Vulvar Vulvar Disease Active Methodi pain pain 5-14 st 00:00: Hospita 00 l Pyelonephr Pyelonephr Disease Active M ethodi itis itis 7-09 st 00:00: Hospita 00 l Pelvic Pelvic Disease Active Methodi pain in pain in 7-07 st female female 00:00: Hospita 00 l Urge Urge Disease Active Methodi incontinen incontinen 6-29 st ce ce 00:00: Hospita 00 l LLQ LLQ Disease Active Methodi abdominal abdominal 3-17 st pain pain 00:00: Hospita 00 l Urinary Urinary Disease Active Methodi incontinen incontinen 3-17 st ce, mixed ce, mixed 00:00: Hosp price (Urge (Urge 00 l predominan predominan t) t) History of History of Disease Active M ethodi ovarian ovarian 3-17 st cyst cyst 00:00: Hospita 00 l Pain at Pain at Disease Active Univers surgical surgical 1-30 ity of incision incision 00:00: [place] 00 [facility] Branch Mood Mood Disease Active Univers swings swings 1-30 ity of 00:00: [facility] Branch Gestationa Gestationa Disease Active 2012-07 U nivers l l 2-21 ity of hypertensi hypertensi [place] Gestationa Gestationa Disease Active 2012-07 U nivers l l 2-21 ity of hypertensi hypertens[place] [facility] Ventral Ventral Disease Active 2012-07 Univers hernia hernia 2-21 ity of 00:00: [place] [facility] Branch 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 U nivers supraventr l 0-08 ity of icular supraventr 00:00: [place] tachycardi icular 00 Medica l a s/p tachycardi Branch ablation a s/p ablation Other Other Disease Active Univers abnormalit abnormalit 02-07 it y of ies in ies in 00:00: [place] shape or shape or 00 Medica l position position Branch of gravid of gravid uterus and uterus and of of neighborin neighborin g g structures structures , , antepartum antepartum Biliary Biliary Disease Active Univers colic colic 02-07 ity of 00:00: [place] [facility] Generalize Generalize Disease Active U nivers d anxiety d anxiety 01-25 ity of disorder disorder 00:00: [place] 00 Medical Branch Not immune Not immune Disease Active Overview : Univers to rubella to rubella 6 Formattin ity of 00:00: g of this [place] 00 note Medical might be Branch different from the original. 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 Insulin control since Allergies, Adverse Reactions, Alerts Allergy Allergy Status Severity Reaction(s) Onset Inactive Treating Comm ents Source Name Type Date Date Clinician No Known DA Active U [facility] Drug 07-30 [place] Allergie 00:00: [facility] alcohol FA Active PA HIVES TO [facility] TEQUILA 07-30 [place] 00:00: Orthope 00 dic Hospita l tequila DA Active PA hives [facility] 07-30 [place] 00:00: Orthope 00 dic Hospita l alcohol FA Active MO [facility] 01-15 [place] 00:00: Orthope 00 dic Hospita l alcohol FA Active MO HIVES TO [facility] TEQUILA 01-15 [place] 00:00: Orthope 00 dic Hospita l tequila DA Active MO hives 2020-0 [facility] 7-02 Clear 00:00: [place] 00 [facility] Cefpodox Propensi Active Other (See 2019 Eye and M ethodi dewayne ty to Comments) 8-[address] adverse 00:00: Swelling Hospita reaction 00 30 mins l s to after drug taking medicatio n alcohol FA Active PA 2015-07 [facility] 09-06 [place] 00:00: Orthope 00 dic Hospita l alcohol FA Active PA TURNS RED 2015-07 [facility] 09-06 [place] 00:00: Orthope 00 dic Hospita l NO KNOWN Drug Active Univers ALLERGIE Class ity of S [facility] Family History Family Member Diagnosis Comments Start Date Stop Date Source Natural sister Diabetes [facility] Natural brother Diabetes [facility] Natural father [facility] Natural mother Diabetes [facility] Social History Social Habit Start Date Stop Date Quantity Comments Source Exposure to Not sure [facility] (event) [place] Alcohol intake 2019-11-22 2019-11-22 Current drinker Metho dist 00:00:00 00:00:00 of alcohol Hospital (finding) History [facility] 2019-11-22 2019-11-22 2 [facility] Alcohol Frequency 00:00:00 00:00:00 Hospita l History [facility] 2019-11-22 2019-11-22 1 [facility] Alcohol Std 00:00:00 00:00:00 Hospital Drinks History [facility] 2019-11-22 2019-11-22 1 [facility] Alcohol Binge 00:00:00 00:00:00 Hospital Alcohol Comment 2016-09-09 2016-09-09 Megan eusebiajacob. Meth odist 00:00:00 00:00:00 Hospital Tobacco use and 2011-12-19 2011-12-19 Never used Universit y of exposure 00:00:00 00:00:00 [facility] Sex Assigned At [birth year] [facility] 00:00:00 00:00:00 Hospital Smoking Status Start Date Stop Date Source Never smoker [facility] Medications Ordered Filled Start Stop Current Ordering Indication Dosage Frequency Signature Comments Components Source Medication Medication Date Date Medication? Clinician (SIG) Name Name Bromfed DM 0 No 5mg/5 2 mg-30 7-13 mL mg-10 mg/5 00:00: mL oral 00 syrup Bromfed DM No 5mg/5 2 mg-30 7-13 mL mg-10 mg/5 00:00: mL oral 00 syrup Bromfed DM 2-0 No 5mg/5 2 mg-30 7-13 mL mg-10 mg/5 00:00: mL oral 00 syrup Bromfed DM 2-0 No 5mg/5 2 mg-30 7-13 mL mg-10 mg/5 00:00: mL oral 00 syrup Valium 10 2-0 No 1mg mg tablet 12-11 00:00: 00 Macrodantin 2022-0 No 1mg 100 mg 6- capsule 00:00: 00 Valium 10 2-0 No 1mg mg tablet 12-11 00:00: 00 Macrodantin 2022-0 No 1mg 100 mg 6-03 capsule 00:00: 00 Valium 10 2-0 No 1mg mg tablet 12-11 00:00: 00 Macrodantin 2022-0 No 1mg 100 mg 6 capsule 00:00: 00 Valium 10 2-0 No 1mg mg tablet 12-11 00:00: 00 Macrodantin 2-0 No 1mg 100 mg 603 capsule 00:00: 00 atorvastati 2-0 No 1mg n 80 mg 5-18 tablet 00:00: 00 atorvastati 2-0 No 1mg n 80 mg 5-18 tablet 00:00: 00 atorvastati 2-0 No 1mg n 80 mg 5-18 tablet 00:00: 00 atorvastati 2022-0 No 1mg n 80 mg 5-18 tablet 00:00: 00 Victoza 2-0 No (18 3-Christofer 0.6 5-14 mg/3 mg/0.1 mL 00:00: mL) (18 mg/3 00 mL) subcutaneou s pen injector Tresiba 2-0 No (3 mL) FlexTouch 5-14 U-100 00:00: insulin 100 00 unit/mL (3 mL) subcutaneou s pen alogliptin 2-0 No 1mg 25 mg 5-14 tablet 00:00: 00 lisinopril 2022-0 No 1mg 5 mg tablet 5-14 00:00: 00 atorvastati 2022-0 No 1mg n 40 mg 5-14 tablet 00:00: 00 oxybutynin 2022-0 No 1mg chloride 5 5-14 mg tablet 00:00: 00 glimepiride 2022-0 No 1mg 4 mg tablet 5-14 00:00: 00 Janumet XR 2-0 No 1mg 100 5-14 mg-1,000 mg 00:00: tablet,exte 00 nded release Victoza 2-0 No (18 3-Christofer 0.6 5-14 mg/3 mg/0.1 mL 00:00: mL) (18 mg/3 00 mL) subcutaneou s pen injector Tresiba 2022-0 No (3 mL) FlexTouch 5-14 U-100 00:00: insulin 100 00 unit/mL (3 mL) subcutaneou s pen alogliptin 2-0 No 1mg 25 mg 5-14 tablet 00:00: 00 lisinopril 2022-0 No 1mg 5 mg tablet 5-14 00:00: 00 atorvastati 2022-0 No 1mg n 40 mg 5-14 tablet 00:00: 00 oxybutynin 2-0 No 1mg chloride 5 5-14 mg tablet 00:00: 00 glimepiride 2-0 No 1mg 4 mg tablet 5-14 00:00: 00 Janumet XR 2-0 No 1mg 100 5-14 mg-1,000 mg 00:00: tablet,exte 00 nded release Victoza 2-0 No (18 3-Christofer 0.6 5-14 mg/3 mg/0.1 mL 00:00: mL) (18 mg/3 00 mL) subcutaneou s pen injector Tresiba 2022-0 No (3 mL) FlexTouch 5-14 U-100 00:00: insulin 100 00 unit/mL (3 mL) subcutaneou s pen alogliptin 2022-0 No 1mg 25 mg 5-14 tablet 00:00: 00 lisinopril 2022-0 No 1mg 5 mg tablet 5-14 00:00: 00 atorvastati 2022-0 No 1mg n 40 mg 5-14 tablet 00:00: 00 oxybutynin 2022-0 No 1mg chloride 5 5-14 mg tablet 00:00: 00 glimepiride 2-0 No 1mg 4 mg tablet 5-14 00:00: 00 Janumet XR 2-0 No 1mg 100 5-14 mg-1,000 mg 00:00: tablet,exte 00 nded release Victoza 2-0 No (18 3-Christofer 0.6 5-14 mg/3 mg/0.1 mL 00:00: mL) (18 mg/3 00 mL) subcutaneou s pen injector Tresiba 2-0 No (3 mL) FlexTouch 5-14 U-100 00:00: insulin 100 00 unit/mL (3 mL) subcutaneou s pen alogliptin 2-0 No 1mg 25 mg 5-14 tablet 00:00: 00 lisinopril 2-0 No 1mg 5 mg tablet 5-14 00:00: 00 atorvastati 2-0 No 1mg n 40 mg 5-14 tablet 00:00: 00 oxybutynin 2-0 No 1mg chloride 5 5-14 mg tablet 00:00: 00 glimepiride 2-0 No 1mg 4 mg tablet 5-14 00:00: 00 Janumet XR 2021-0 No 1mg 100 5-14 mg-1,000 mg 00:00: tablet,exte 00 nded release doxycycline 2-0 No 1mg hyclate 100 4-19 mg capsule 00:00: 00 Dose 2022-0 No Unknown 4-19 00:00: 00 Dose 2022-0 No Unknown 4-19 00:00: 00 Dose 2022-0 No Unknown 4-19 00:00: 00 Dose 2022-0 No Unknown 4-19 00:00: 00 Dose 2022-0 No Unknown 4-19 00:00: 00 doxycycline 2-0 No 1mg hyclate 100 4-19 mg capsule 00:00: 00 Dose 2022-0 No Unknown 4-19 00:00: 00 hydroxyzine 2022-0 No 12mg HCl 25 mg 4-15 tablet 00:00: 00 Dose 2022-0 No Unknown 4-15 00:00: 00 Dose 2022-0 No Unknown 4-15 00:00: 00 hydroxyzine 2022-0 No 12mg HCl 25 mg 4-15 tablet 00:00: 00 Dose 2021-0 No Unknown 4-13 00:00: 00 Dose 2021-0 No Unknown 413 00:00: 00 Dose 2021-0 No Unknown -13 00:00: 00 Dose 2021-0 No Unknown 10-21 00:00: 00 NaCl 0.9% 2021- No 1000mL at 999 Uni vers (NS) IV 10-17- mL/hr, ity of infusion 02:00: 02:08 [place]venou [place] 1,000 mL 00 :00 s, ONCE, 1 Medic al dose, On Branch Tue10/16/21 at 2100, MALAIKA insulin 2021- No .1U/kg 10.3 Units U nivers regular 10-17 (rounded ity of human 02:00: 01:[address] (HUMULIN R) 00 :00 Units = Medic al injection 0.1 Branch 10.3 Units Units/kg ?103.4 kg), Slow IV Push, ONCE, 1 dose, On Tue10/16/21 at 2100, STAT oxybutynin 2021- No 5mg 5 mg, Unive rs chloride 10-17 Oral, ity of (DITROPAN) 02:00: 01:09 ONCE, 1 [place] tablet 5 mg 00 :00 dose, On Medi bonita Tue10/16/21 Branch at 2100, Routine traMADoL 2021- No 50mg 50 mg, Univer s (ULTRAM) 10-17 Oral, ity of tablet 50 02:00: 01:08 ONCE, 1 [place] mg 00 :00 dose, On Medical Tue10/16/21 Branch at 2100, Routine NaCl 0.9% 2021- No 1000mL at 999 Uni vers (NS) bolus 10-16- mL/hr, ity of infusion 23:15: 00:38 1,000 mL, [place] 1,000 mL 00 :00 IV Medical Infusion, Branch ONCE, 1 dose, On Tue10/16/21 at 1815, [place] ondansetron 2021- No 4mg 4 mg, Slow Univers (ZOFRAN 10-16 IV Push, ity of (PF)) 23:15: 23:05 ONCE, 1 [place] injection 4 00 :00 dose, On Medi bonita mg Tue10/16/21 Branch at 1815, MALAI[place] ketorolac No 30mg 30 mg, Unive rs (TORADOL) 10-16-08 Slow IV ity of injection 23:15: 23:05 Push, [place] 30 mg 00 :00 ONCE, 1 Medical dose, On Branch 10/16/21 at 1815, Routine
physics faculty member approving Restricted medication : BEATRIZ EDUARDO oxybutynin Yes [id number] 5mg Take 1 Univers chloride 5 4-08 tablet by ity of mg tablet 00:00: mouth 3 [place] 00 (three) Medical times Branch daily as needed for Bladder spasms. ondansetron Yes [id number] 4mg Take 1 Univers 4 mg 4-08 tablet by ity of disintegrat 00:00: mouth [place] ing tablet 00 every 8 Medica l (eight) Branch hours as needed for Nausea and Vomiting (N/V). traMADoL 50 2021- No [id number] 50mg Take 1 Uni vers mg tablet 10-16-16 tablet by ity of 00:00: 04:59 mouth [place] 00 :00 every 8 Medical (eight) Branch hours as needed for Pain (scale 4-6) or Pain (scale 7-10) for up to 7 days. Indication s: acute pain Pyridium No 1mg 200 mg -02 tablet 00:00: 00 Dose 0 No Unknown 4-02 00:00: 00 Dose 2021-0 [...] Dose 2022-0 No Unknown 4-02 00:00: 00 Pyridium 2022-0 No 1mg 200 mg 4-02 tablet 00:00: 00 Dose 2022-0 No Unknown 4-02 [...] Dose 2022-0 No Unknown 4-02 00:00: 00 Pyridium 2022-0 No 1mg 200 mg 4-02 tablet 00:00: 00 Dose 2022-0 No Unknown 4-02 [...] Dose 2022-0 No Unknown 4-02 00:00: 00 Pyridium 2022-0 No 1mg 200 mg 4-02 tablet 00:00: 00 Dose 2022-0 No Unknown 4-02 [...] 2022-0 No Unknown 3-31 00:00: 00 Diflucan 2-0 No 1mg 150 mg 3-29 tablet 00:00: 00 ciprofloxac 2-0 No 1mg in 500 mg 3-29 tablet [...] Dose 2022-0 No Unknown 3-29 00:00: 00 Diflucan 2-0 No 1mg 150 mg 3-29 tablet 00:00: 00 ciprofloxac 2-0 No 1mg in 500 mg 3-29 tablet 00:00: 00 Dose 2-0 No Unknown 3-29 00:00: 00 Dose 2022-0 [...] Dose 2022-0 No Unknown 3-29 00:00: 00 Diflucan 2022-0 No 1mg 150 mg 3-29 tablet 00:00: 00 ciprofloxac 2022-0 No 1mg in 500 mg 3-29 tablet 00:00: 00 Dose 2022-0 No Unknown 3-29 00:00: 00 Dose 2022-0 No Unknown 3-29 00:00: 00 Diflucan 2022-0 No 1mg 150 [...] 3-29 00:00: 00 Dose 2021-0 No Unknown 3- 00:00: 00 Dose 2021-0 No Unknown 3-29 00:00: 00 Dose 2021-0 No Unknown 3- 00:00: 00 Dose 2021-0 No Unknown 3-29 00:00: 00 Dose 2021-0 No Unknown 3- 00:00: 00 Dose 2021-0 No Unknown 3- 00:00: 00 Dose 2021-0 No Unknown 3- 00:00: 00 Dose 2021-0 No Unknown 3- 00:00: 00 Dose 2021-0 No Unknown 3- 00:00: 00 Dose 2021-0 No Unknown 3- 00:00: 00 Dose 2021-0 No Unknown 3- 00:00: 00 Dose 2021-0 No Unknown 3-29 00:00: 00 Dose 2021-0 No Unknown 3-29 00:00: 00 Dose 2021-0 No Unknown 3-29 00:00: 00 Dose 2021-0 No Unknown 3- 00:00: 00 Dose 2021-0 No Unknown 3- 00:00: 00 Dose 2021-0 No Unknown 3-29 00:00: 00 Dose 2021-0 No Unknown 3-29 00:00: 00 Dose 2021-0 No Unknown 3-29 00:00: 00 Dose 2021-0 No Unknown 3-29 00:00: 00 ketorolac 2021-0 2021- No 15mg 15 mg, Unive rs (TORADOL) 3- 03-16 Slow IV ity of injection 17:00: 16:59 Push, Q6H, [place] 15 mg 00 :00 4 doses, Medical First dose Branch on Tue09/22/21 at 1200, Last dose on Tue09/23/21 at 0600, Routine NaCl 0.9% 2021- No 1000mL at 999 Uni vers (NS) bolus 3-15 03-15 mL/hr, ity of infusion 16:15: 17:05 1,000 mL, [place] 1,000 mL 00 :00 IV Medical Piggyback, Hannah ONCE, 1 dose, On Tu09/22/21 at 1115, STAT ondansetron 2021-0 2021- No 4mg 4 mg, Slow Univers (ZOFRAN 3-15 03-15 IV Push, ity of (PF)) 15:15: 15:18 ONCE, 1 [place] injection 4 00 :00 dose, On Medi bonita mg Branch 09/22/21 at 1015, Routine Dose 2021-0 No Unknown 1-19 00:00: 00 Dose 2021-0 No Unknown 1-19 00:00: 00 hydrochloro 2-0 No 1mg thiazide 25 1-19 mg tablet 00:00: 00 Dose 2021-0 No Unknown 1-19 00:00: 00 Dose 2-0 No Unknown 1-19 00:00: 00 Dose 2-0 No Unknown 1-19 00:00: 00 Dose 2-0 No Unknown 1-19 00:00: 00 amitriptyli 2-0 No 1mg ne 10 mg 1-19 tablet 00:00: 00 gabapentin 2-0 No 3mg 300 mg 1-19 capsule 00:00: 00 Dose 2-0 No Unknown 1-19 00:00: 00 Dose 2-0 No Unknown 1-19 00:00: 00 hydrochloro 2022-0 No 1mg thiazide 25 1-19 mg tablet 00:00: 00 Dose 2-0 No Unknown 1-19 00:00: 00 Dose 2-0 No Unknown 1-19 00:00: 00 Dose 2-0 No Unknown 1-19 00:00: 00 Dose 2-0 No Unknown 1-19 00:00: 00 amitriptyli 2-0 No 1mg ne 10 mg 1-19 tablet 00:00: 00 gabapentin 2022-0 No 3mg 300 mg 1-19 capsule 00:00: 00 Dose 2-0 No Unknown 1-19 00:00: 00 Dose 2-0 No Unknown 1-19 00:00: 00 hydrochloro 2022-0 No 1mg thiazide 25 1-19 mg tablet 00:00: 00 Dose 2-0 No Unknown 1-19 00:00: 00 Dose 2-0 No Unknown 1-19 00:00: 00 Dose 2021-0 No Unknown 1-19 00:00: 00 Dose 2021-0 No Unknown 1-19 00:00: 00 amitriptyli 2021-0 No 1mg ne 10 mg 1-19 tablet 00:00: 00 gabapentin 2021-0 No 3mg 300 mg 1-19 capsule 00:00: 00 Dose 2021-0 No Unknown 1-19 00:00: 00 Dose 2021-0 No Unknown 1-19 00:00: 00 hydrochloro 2021-0 No 1mg thiazide 25 1-19 mg tablet 00:00: 00 Dose 2021-0 No Unknown 1-19 00:00: 00 Dose 2021-0 No Unknown 1-19 00:00: 00 Dose 2021-0 No Unknown 1-19 00:00: 00 Dose 2021-0 No Unknown 1-19 00:00: 00 amitriptyli 2021-0 No 1mg ne 10 mg 1-19 tablet 00:00: 00 gabapentin 2021-0 No 3mg 300 mg 1-19 capsule 00:00: 00 morpHINE 2020-07- No 4mg [...] Indication s: acute pain ondansetron 2020-07 Yes [id number] 4mg Take 1 Univers 4 mg 2-09 [...] Indication s: acute pain ondansetron 2020-07 Yes [id number] 4mg Take 1 Univers 4 mg 2-09 [...] Indication s: acute pain ondansetron 2020-07 Yes [id number] 4mg Take 1 Univers 4 mg 2-09 tablet by ity of disintegrat 00:00: mouth [place] ing tablet 00 every 4 Medica l (four) Branch hours as needed for Nausea and Vomiting (N/V). traMADoL 50 2020-07- No [id number] 50mg Take 1 Uni vers mg tablet 2- 04-08 tablet by ity of 00:00: 00:00 mouth [place] 00 :00 every 6 Medical (six) Branch hours as needed for Pain (scale 4-6). Indication s: acute pain ondansetron 2020-07- No [id number] 4mg Take 1 Univers 4 mg 2-09 [...] 00 hydrochloro 2020-07 No 1mg thiazide 25 2-08 mg tablet 00:00: 00 glimepiride 2020-07 No 1mg 4 mg tablet 2-08 00:00: 00 Diflucan 2020-07 No 1mg 150 mg 2-08 tablet 00:00: 00 hydrochloro 2020-07 No 1mg thiazide 25 2-08 mg tablet 00:00: 00 glimepiride 2020-07 No 1mg 4 mg tablet 2-08 00:00: 00 Diflucan 2020-07 No 1mg 150 mg 2-08 tablet 00:00: 00 hydrochloro 2020-07 No 1mg thiazide 25 2-08 mg tablet 00:00: 00 glimepiride 2020-07 No 1mg 4 mg tablet 2-08 00:00: 00 Diflucan 2020-07 No 1mg 150 mg 2-08 tablet 00:00: 00 hydrochloro 2020-07 No 1mg thiazide 25 2-07 mg tablet 00:00: 00 glimepiride 2020-07 No 1mg 4 mg tablet 2-07 00:00: 00 Diflucan 2020-07 No 1mg 150 mg 2-07 tablet 00:00: 00 hydrochloro 2020-07 No 1mg thiazide 25 2-07 mg tablet 00:00: 00 glimepiride 2020-07 No 1mg 4 mg tablet 2-07 00:00: 00 Diflucan 2020-07 No 1mg 150 mg 2-07 tablet 00:00: 00 hydrochloro 2020-07 No 1mg thiazide 25 2-07 mg tablet 00:00: 00 glimepiride 2020-07 No 1mg 4 mg tablet 2-07 00:00: 00 Diflucan 2020-07 No 1mg 150 mg 2-07 tablet 00:00: 00 hydrochloro 2020-07 No 1mg thiazide 25 2-07 mg tablet 00:00: 00 glimepiride 2020-07 No 1mg 4 mg tablet 2-07 00:00: 00 Diflucan 2020-07 No 1mg 150 mg 2-07 tablet 00:00: 00 ondansetron 2020-2020- No 4mg 4 mg, Slow Univers (ZOFRAN 1-21 11-20 IV Push, ity of (PF)) 00:00: 23:01 [...] 05/30/21 at 1800, Routine iopamidol 2020-07- No [id number] 100mL 100 mL, Univers (ISOVUE 07-30 9109 Intravenou ity o f 370-500 mL) 23:48: 23:48 s, ONCE, 1 [place] injection 00 :00 dose, On Medica l 100 mL Sat Branch 05/30/21 at 1800, Routine ibuprofen 2020-07 Yes [id number] 600mg Take 1 Univers 600 mg 1-20 [id number] tablet by ity of tablet 00:00: mouth [place] 00 every 6 Medical (six) Branch hours as needed for Pain (scale 4-6). traMADoL 50 2020-07 Yes [id number] 50mg Take 1 Univ ers mg tablet 1-20 tablet by ity o f 00:00: mouth [place] 00 every 6 Medical (six) Branch hours as needed for Pain (scale 7-10). Indication s: acute pain ibuprofen 2020-07 Yes [id number] 600mg Take 1 Univers 600 mg 1-20 [id number] tablet by ity of tablet 00:00: mouth [place] 00 every 6 Medical (six) Branch hours as needed for Pain (scale 4-6). traMADoL 50 2020-07 Yes [id number] 50mg Take 1 Univ ers mg tablet 1-20 tablet by ity o f 00:00: mouth [place] 00 every 6 Medical (six) Branch hours as needed for Pain (scale 7-10). Indication s: acute pain ibuprofen 2020-07 Yes [id number] 600mg Take 1 Univers 600 mg 1-20 [id number] tablet by ity of tablet 00:00: mouth [place] 00 every 6 Medical (six) Branch hours as needed for Pain (scale 4-6). traMADoL 50 2020-07 Yes [id number] 50mg Take 1 Univ ers mg tablet 1-20 tablet by ity o f 00:00: mouth [place] 00 every 6 Medical (six) Branch hours as needed for Pain (scale 7-10). Indication s: acute pain ibuprofen 2020-07 Yes [id number] 600mg Take 1 Univers 600 mg 1-20 [id number] tablet by ity of tablet 00:00: mouth [place] 00 every 6 Medical (six) Branch hours as needed for Pain (scale 4-6). traMADoL 50 2020-07 Yes [id number] 50mg Take 1 Univ ers mg tablet 1-20 tablet by ity o f 00:00: mouth [place] 00 every 6 Medical (six) Branch hours as needed for Pain (scale 7-10). Indication s: acute pain ibuprofen 2020-07 Yes [id number] 600mg Take 1 Univers 600 mg 1-20 [id number] tablet by ity of tablet 00:00: mouth [place] 00 every 6 Medical (six) Branch hours as needed for Pain (scale 4-6). traMADoL 50 2020-07- No [id number] 50mg Take 1 Uni vers mg tablet -28 10-08 tablet by ity of 00:00: 00:00 mouth [place] 00 :00 every 6 Medical (six) Branch hours as needed for Pain (scale 7-10). Indication s: acute pain Abilify 5 2020-07 No 1mg mg tablet 07-11 00:00: 00 Abilify 5 2020-07 No 1mg mg tablet 07-11 00:00: 00 Abilify 5 2020-07 No 1mg mg tablet 07-11 00:00: 00 Abilify 5 2020-07 No 1mg mg tablet 07-11 00:00: 00 sumatriptan 1 No 1mg 50 mg 0-07 tablet 00:00: 00 sumatriptan 2020-07 No 1mg 50 mg 0-07 tablet 00:00: 00 sumatriptan 2020-07 No 1mg 50 mg 0-07 tablet 00:00: 00 sumatriptan 2020-07 No 1mg 50 mg 0-07 tablet 00:00: 00 Tresiba 0 No (3 mL) FlexTouch 9-28 U-100 00:00: insulin 100 00 unit/mL (3 mL) subcutaneou s pen alogliptin 2021-0 No 1mg 25 mg 9-28 tablet 00:00: 00 lisinopril 1-0 No 1mg 5 mg tablet 04-07 00:00: 00 hydrochloro 2021-0 No 1mg thiazide 25 9-28 mg tablet 00:00: 00 glimepiride 1-0 No 1mg 4 mg tablet 04-07 00:00: 00 Janumet XR 1-0 No 1mg 100 9-28 mg-1,000 mg 00:00: tablet,exte 00 nded release amitriptyli 2020-0 No 1mg ne 10 mg - tablet 00:00: 00 gabapentin 2021-0 No 3mg 300 mg - capsule 00:00: 00 Vascepa 1 1-0 No 1gram gram - capsule 00:00: 00 Tresiba 2021-0 No (3 mL) FlexTouch 9-28 U-100 00:00: insulin 100 00 unit/mL (3 mL) subcutaneou s pen alogliptin 2020-0 No 1mg 25 mg - tablet 00:00: 00 lisinopril 1-0 No 1mg 5 mg tablet 04-07 00:00: 00 hydrochloro 2021-0 No 1mg thiazide 25 9-28 mg tablet 00:00: 00 glimepiride 1-0 No 1mg 4 mg tablet 04-07 00:00: 00 Janumet XR 1-0 No 1mg 100 9-28 mg-1,000 mg 00:00: tablet,exte 00 nded release amitriptyli 2020-0 No 1mg ne 10 mg - tablet 00:00: 00 gabapentin 2021-0 No 3mg 300 mg - capsule 00:00: 00 Vascepa 1 1-0 No 1gram gram - capsule 00:00: 00 Tresiba 2021-0 No (3 mL) FlexTouch 9-28 U-100 00:00: insulin 100 00 unit/mL (3 mL) subcutaneou s pen alogliptin 1-0 No 1mg 25 mg -28 tablet 00:00: 00 lisinopril 2021-0 No 1mg 5 mg tablet 04-07 00:00: 00 hydrochloro 2021-0 No 1mg thiazide 25 9-28 mg tablet 00:00: 00 glimepiride 1-0 No 1mg 4 mg tablet 04-07 00:00: 00 Janumet XR 1-0 No 1mg 100 9-28 mg-1,000 mg 00:00: tablet,exte 00 nded release amitriptyli 2020-0 No 1mg ne 10 mg - tablet 00:00: 00 gabapentin 2021-0 No 3mg 300 mg - capsule 00:00: 00 Vascepa 1 2020-0 No 1gram gram - capsule 00:00: 00 Tresiba 2021-0 No (3 mL) FlexTouch -28 U-100 00:00: insulin 100 00 unit/mL (3 mL) subcutaneou s pen alogliptin 2020-0 No 1mg 25 mg - tablet 00:00: 00 lisinopril 1-0 No 1mg 5 mg tablet 04-07 00:00: 00 hydrochloro 2021-0 No 1mg thiazide 25 9-28 mg tablet 00:00: 00 glimepiride 2020-0 No 1mg 4 mg tablet 04-07 00:00: 00 Janumet XR 2020-0 No 1mg 100 9-28 mg-1,000 mg 00:00: tablet,exte 00 nded release amitriptyli 2020-0 No 1mg ne 10 mg 04-07 tablet 00:00: 00 gabapentin 1-0 No 3mg 300 mg - capsule 00:00: 00 Vascepa 1 1-0 No 1gram gram - capsule 00:00: 00 Augmentin 1-0 No 1mg 875 mg-125 9-13 mg tablet 00:00: 00 fluconazole 2021-0 No 1mg 200 mg 9-13 tablet 00:00: 00 Flonase 2021-0 No 2mcg/ac Allergy 9-13 tuation Relief 50 00:00: mcg/actuati 00 on nasal spray,suspe nsion Augmentin 1-0 No 1mg 875 mg-125 9-13 mg tablet 00:00: 00 fluconazole 2021-0 No 1mg 200 mg 9-13 tablet 00:00: 00 Flonase 2021-0 No 2mcg/ac Allergy 9-13 tuation Relief 50 00:00: mcg/actuati 00 on nasal spray,suspe nsion Augmentin 1-0 No 1mg 875 mg-125 9-13 mg tablet 00:00: 00 fluconazole 2021-0 No 1mg 200 mg 9-13 tablet 00:00: 00 Flonase 2021-0 No 2mcg/ac Allergy 9-13 tuation Relief 50 00:00: mcg/actuati 00 on nasal spray,suspe nsion Augmentin 1-0 No 1mg 875 mg-125 9-13 mg tablet 00:00: 00 fluconazole 2021-0 No 1mg 200 mg 9-13 tablet 00:00: 00 Flonase 2021-0 No 2mcg/ac Allergy 9-13 tuation Relief 50 00:00: mcg/actuati 00 on nasal spray,suspe nsion azithromyci 1-0 No mg n 250 mg 9-10 tablet 00:00: 00 benzonatate 2021-0 No 1mg 200 mg 9-10 capsule 00:00: 00 Bromfed DM 1-0 No 5mg/5 2 mg-30 9-10 mL mg-10 mg/5 00:00: mL oral 00 syrup azithromyci 1-0 No mg n 250 mg 9-10 tablet 00:00: 00 benzonatate 1-0 No 1mg 200 mg 9-10 capsule 00:00: 00 Bromfed DM 1-0 No 5mg/5 2 mg-30 9-10 mL mg-10 mg/5 00:00: mL oral 00 syrup azithromyci 1-0 No mg n 250 mg 9-10 tablet 00:00: 00 benzonatate 2021-0 No 1mg 200 mg 9-10 capsule 00:00: 00 Bromfed DM 2021-0 No 5mg/5 2 mg-30 9-10 mL mg-10 mg/5 00:00: mL oral 00 syrup azithromyci 2021-0 No mg n 250 mg 9-10 tablet 00:00: 00 benzonatate 2021-0 No 1mg 200 mg 9-10 capsule 00:00: 00 Bromfed DM 2021-0 No 5mg/5 2 mg-30 9-10 mL mg-10 mg/5 00:00: mL oral 00 syrup VASCEPA 1 2021-0 Yes [id number] TAKE 3 U nivers gram 9-10 CAPSULES ity of capsule 00:00: BY MOUTH [place] EVERY DAY Medical Branch VASCEPA 1 2020-0 Yes [id number] TAKE 3 U nivers gram 9-10 CAPSULES ity of capsule 00:00: BY MOUTH [place] EVERY DAY Medical Branch VASCEPA 1 2020-0 Yes [id number] TAKE 3 U nivers gram 9-10 CAPSULES ity of capsule 00:00: BY MOUTH [place] EVERY DAY Medical Branch VASCEPA 1 2020-0 Yes [id number] TAKE 3 U nivers gram 9-10 CAPSULES ity of capsule 00:00: BY MOUTH [place] EVERY DAY Medical Branch VASCEPA 1 2020-0 Yes [id number] TAKE 3 U nivers gram 9-10 CAPSULES ity of capsule 00:00: BY MOUTH [place] EVERY DAY Medical Branch VASCEPA 1 2020-0 Yes [id number] TAKE 3 U nivers gram 9-10 CAPSULES ity of capsule 00:00: BY MOUTH [place] EVERY DAY Medical Branch metronidazo 2021-0 No 1mg le 500 mg 8-06 tablet 00:00: 00 metronidazo 2021-0 No 1mg le 500 mg 8-06 tablet 00:00: 00 metronidazo 2021-0 No 1mg le 500 mg 8-06 tablet 00:00: 00 metronidazo 2021-0 No 1mg le 500 mg 8-06 tablet 00:00: 00 triamcinolo 2021-0 No % ne 8-04 acetonide 00:00: 0.1 % 00 topical cream Macrobid 2020-0 No 1mg 100 mg 8-04 capsule 00:00: 00 triamcinolo 2021-0 No % ne 8-04 acetonide 00:00: 0.1 % 00 topical cream Macrobid 1-0 No 1mg 100 mg 8-04 capsule 00:00: 00 triamcinolo 2021-0 No % ne 8-04 acetonide 00:00: 0.1 % 00 topical cream Macrobid 1-0 No 1mg 100 mg 8-04 capsule 00:00: 00 triamcinolo 2021-0 No % ne 8-04 acetonide 00:00: 0.1 % 00 topical cream Macrobid 1-0 No 1mg 100 mg 8-04 capsule 00:00: 00 Tresiba 2021-0 No (3 mL) FlexTouch 7-30 U-100 00:00: insulin 100 00 unit/mL (3 mL) subcutaneou s pen alogliptin 2021-0 No 1mg 25 mg 7-30 tablet 00:00: 00 lisinopril 2021-0 No 1mg 5 mg tablet 730 00:00: 00 glimepiride 2021-0 No 1mg 4 mg tablet 730 00:00: 00 Diflucan 2021-0 No 1mg 150 mg 7-30 tablet 00:00: 00 amitriptyli 2021-0 No 1mg ne 10 mg 7-30 tablet 00:00: 00 gabapentin 2021-0 No 3mg 300 mg 7-30 capsule 00:00: 00 Tresiba 2021-0 No (3 mL) FlexTouch 7-30 U-100 00:00: insulin 100 00 unit/mL (3 mL) subcutaneou s pen alogliptin 1-0 No 1mg 25 mg 7-30 tablet 00:00: 00 lisinopril 2021-0 No 1mg 5 mg tablet 02-06 00:00: 00 glimepiride 2021-0 No 1mg 4 mg tablet 30 00:00: 00 Diflucan 2021-0 No 1mg 150 mg 7-30 tablet 00:00: 00 amitriptyli 2021-0 No 1mg ne 10 mg 7-30 tablet 00:00: 00 gabapentin 2021-0 No 3mg 300 mg 7-30 capsule 00:00: 00 Tresiba 2021-0 No (3 mL) FlexTouch 7-30 U-100 00:00: insulin 100 00 unit/mL (3 mL) subcutaneou s pen alogliptin 1-0 No 1mg 25 mg 7-30 tablet 00:00: 00 lisinopril 2021-0 No 1mg 5 mg tablet 730 00:00: 00 glimepiride 2021-0 No 1mg 4 mg tablet 730 00:00: 00 Diflucan 2021-0 No 1mg 150 mg 7-30 tablet 00:00: 00 amitriptyli 2021-0 No 1mg ne 10 mg 7-30 tablet 00:00: 00 gabapentin 2021-0 No 3mg 300 mg 7-30 capsule 00:00: 00 Tresiba 2021-0 No (3 mL) FlexTouch 7-30 U-100 00:00: insulin 100 00 unit/mL (3 mL) subcutaneou s pen alogliptin 1-0 No 1mg 25 mg 7-30 tablet 00:00: 00 lisinopril 2021-0 No 1mg 5 mg tablet 7-30 00:00: 00 glimepiride 1-0 No 1mg 4 mg tablet 7-30 00:00: 00 Diflucan 2021-0 No 1mg 150 mg 7-30 tablet 00:00: 00 amitriptyli 1-0 No 1mg ne 10 mg 7-30 tablet 00:00: 00 gabapentin 2021-0 No 3mg 300 mg 7-30 capsule 00:00: 00 buspirone 2021-0 No 1mg 10 mg 6-23 tablet 00:00: 00 hydroxyzine 2021-0 No 12mg HCl 10 mg 6-23 tablet 00:00: 00 buspirone 2021-0 No 1mg 10 mg 6-23 tablet 00:00: 00 Dose 2021-0 No Unknown 6-23 00:00: 00 buspirone 2021-0 No 1mg 10 mg 6-23 tablet 00:00: 00 hydroxyzine 2021-0 No 12mg HCl 10 mg 6-23 tablet 00:00: 00 buspirone 2021-0 No 1mg 10 mg 6-23 tablet 00:00: 00 Dose 2021-0 No Unknown 6-23 00:00: 00 hydrocortis 2021-0 No 1% one 2.5 % 6-20 topical 00:00: cream 00 amitriptyli 1-0 No 1mg ne 10 mg 6-20 tablet 00:00: 00 hydrocortis 2021-0 No 1% one 2.5 % 6-20 topical 00:00: cream 00 amitriptyli 1-0 No 1mg ne 10 mg 6-20 tablet 00:00: 00 hydrocortis 2021-0 No 1% one 2.5 % 6-20 topical 00:00: cream 00 amitriptyli 1-0 No 1mg ne 10 mg 6-20 tablet 00:00: 00 hydrocortis 2020-0 No 1% one 2.5 % 6-20 topical 00:00: cream 00 amitriptyli 1-0 No 1mg ne 10 mg 6-20 tablet 00:00: 00 hydroxyzine 1-0 No 1mg HCl 50 mg 6-10 tablet 00:00: 00 gabapentin 1-0 No 3mg 300 mg 6-10 capsule 00:00: 00 Dose 2021-0 No Unknown 6-10 00:00: 00 gabapentin 2021-0 No 3mg 300 mg 6-10 capsule 00:00: 00 hydroxyzine 1-0 No 1mg HCl 50 mg 6-10 tablet 00:00: 00 gabapentin 1-0 No 3mg 300 mg 6-10 capsule 00:00: 00 Dose 1-0 No Unknown 6-10 00:00: 00 gabapentin 1-0 No 3mg 300 mg 6-10 capsule 00:00: 00 Janumet XR 2020-0 No 1mg 100 6-09 mg-1,000 mg 00:00: tablet,exte 00 nded release Janumet XR 2020-0 No 1mg 100 6-09 mg-1,000 mg 00:00: tablet,exte 00 nded release Janumet XR 2020-0 No 1mg 100 6-09 mg-1,000 mg 00:00: tablet,exte 00 nded release Janumet XR 2020-0 No 1mg 100 6-09 mg-1,000 mg 00:00: tablet,exte 00 nded release icosapent 2020-0 1- No [id number] 3g Take 3 [facility] ethyL 6-02 09-10 capsules ity of (VASCEPA) 1 00:00: 00:00 by mouth [place] gram 00 :00 daily. Medical capsule Branch Tresiba 2020-0 No (3 mL) FlexTouch 6-01 U-100 00:00: insulin 100 00 unit/mL (3 mL) subcutaneou s pen alogliptin 2020-0 No 1mg 25 mg 6-01 tablet 00:00: 00 hydrochloro 2020-0 No 1mg thiazide 25 6-01 mg tablet 00:00: 00 metformin 2020-0 No 1mg 850 mg 6-01 tablet 00:00: 00 gabapentin 2021-0 No 1mg 800 mg 6-01 tablet 00:00: 00 Tresiba 1-0 No (3 mL) FlexTouch 6-01 U-100 00:00: insulin 100 00 unit/mL (3 mL) subcutaneou s pen alogliptin 2020-0 No 1mg 25 mg 6-01 tablet 00:00: 00 hydrochloro 2021-0 No 1mg thiazide 25 6-01 mg tablet 00:00: 00 metformin 2021-0 No 1mg 850 mg 6-01 tablet 00:00: 00 gabapentin 2021-0 No 1mg 800 mg 6-01 tablet 00:00: 00 Tresiba 2020-0 No (3 mL) FlexTouch 6-01 U-100 00:00: insulin 100 00 unit/mL (3 mL) subcutaneou s pen alogliptin 2020-0 No 1mg 25 mg 6-01 tablet 00:00: 00 hydrochloro 2021-0 No 1mg thiazide 25 6-01 mg tablet 00:00: 00 metformin 2021-0 No 1mg 850 mg 6-01 tablet 00:00: 00 gabapentin 2021-0 No 1mg 800 mg 6-01 tablet 00:00: 00 Tresiba 2020-0 No (3 mL) FlexTouch 6-01 U-100 00:00: insulin 100 00 unit/mL (3 mL) subcutaneou s pen alogliptin 2020-0 No 1mg 25 mg 6-01 tablet 00:00: 00 hydrochloro 2020-0 No 1mg thiazide 25 6-01 mg tablet 00:00: 00 metformin 2021-0 No 1mg 850 mg 6-01 tablet 00:00: 00 gabapentin 1-0 No 1mg 800 mg 6-01 tablet 00:00: 00 Lactobacill 2020-0 Yes Take by Uni vers us 5-27 mouth. ity of acidophilus 22:32: [place] (PROBIOTIC 10 Medical ORAL) Branch MULTIVITAMI Yes Take by Uni vers N ORAL 5-27 mouth. ity of 22:32: [place] 10 Medical Branch multivitami 0 Yes Take by Uni vers n with 5-27 mouth. ity of minerals 22:32: [place] (HAIR,SKIN 10 Medical AND NAILS Branch ORAL) Lactobacill 2021-0 Yes Take by Uni vers us 5-27 mouth. ity of acidophilus 17:32: [place] (PROBIOTIC 10 Medical ORAL) [place] MULTIVITAMI Yes Take by Uni vers N ORAL 5-27 mouth. ity of 17:32: [place] [address] Medical [place] multivitami 0 Yes Take by Uni vers n with 5-27 mouth. ity of minerals 17:32: [place] (HAIR,SKIN 10 Medical AND NAILS Branch ORAL) Lactobacill 0 Yes Take by Uni vers us 5-27 mouth. ity of acidophilus 17:32: [place] (PROBIOTIC 10 Medical ORAL) [place] MULTIVITAMI Yes Take by Uni vers N ORAL 5-27 mouth. ity of 17:32: [place] [address] Medical Branch multivitami 0 Yes Take by Uni vers n with 5-27 mouth. ity of minerals 17:32: [place] (HAIR,SKIN 10 Medical AND NAILS Branch ORAL) Lactobacill 0 Yes Take by Uni vers us 5-27 mouth. ity of acidophilus 17:32: [place] (PROBIOTIC 10 Medical ORAL) [place] MULTIVITAMI Yes Take by Uni vers N ORAL 5-27 mouth. ity of 17:32: [place] [address] Medical Branch multivitami Yes Take by Uni vers n with 5-27 mouth. ity of minerals 17:32: [place] (HAIR,SKIN 10 Medical AND NAILS Branch ORAL) Lactobacill 0 Yes Take by Uni vers us 5-27 mouth. ity of acidophilus 17:32: [place] (PROBIOTIC 10 Medical ORAL) [place] MULTIVITAMI Yes Take by Uni vers N ORAL 5-27 mouth. ity of 17:32: [place] [address] Medical Branch multivitami 2020-0 Yes Take by Uni vers n with 5-27 mouth. ity of minerals 17:32: [place] (HAIR,SKIN 10 Medical AND NAILS Branch ORAL) Lactobacill 0 Yes Take by Uni vers us 5-27 mouth. ity of acidophilus 17:32: [place] (PROBIOTIC 10 Medical ORAL) [place] MULTIVITAMI 0 Yes Take by Uni vers N ORAL 5-27 mouth. ity of 17:32: [place] [address] Medical Branch multivitami 0 Yes Take by Uni vers n with 5-27 mouth. ity of minerals 17:32: [place] (HAIR,SKIN 10 Medical AND NAILS Branch ORAL) Diflucan 2021-0 No 1mg 150 mg 5-18 tablet 00:00: 00 Diflucan 2021-0 No 1mg 150 mg 5-18 tablet 00:00: 00 Diflucan 2021-0 No 1mg 150 mg 5-18 tablet 00:00: 00 Diflucan 2021-0 No 1mg 150 mg 5-18 tablet 00:00: 00 atorvastati 2021-0 No 1mg n 40 mg 5-03 tablet 00:00: 00 gabapentin 2021-0 No 1mg 600 mg 5-03 tablet 00:00: 00 atorvastati 2021-0 No 1mg n 40 mg 5-03 tablet 00:00: 00 gabapentin 2021-0 No 1mg 600 mg 5-03 tablet 00:00: 00 atorvastati 2021-0 No 1mg n 40 mg 5-03 tablet 00:00: 00 gabapentin 2021-0 No 1mg 600 mg 5-03 tablet 00:00: 00 atorvastati 2021-0 No 1mg n 40 mg 5-03 tablet 00:00: 00 gabapentin 2021-0 No 1mg 600 mg 5-03 tablet 00:00: 00 glimepiride 2021-0 Yes 4mg Take 1 Univ ers 4 mg tablet 5-02 tablet by ity of 00:00: [address] ([facility]) Medical times Branch daily with meals. glimepiride 2021-0 Yes 4mg Take 1 Univ ers 4 mg tablet 5-02 tablet by ity of 00:00: mouth 2 [place] (two) Medical times Branch daily with meals. glimepiride 2021-0 Yes 4mg Take 1 Univ ers 4 mg tablet 5-02 tablet by ity of 00:00: mouth 2 [place] (two) Medical times Branch daily with meals. glimepiride 2021-0 Yes 4mg Take 1 Univ ers 4 mg tablet 5-02 tablet by ity of 00:00: mouth 2 [place] (two) Medical times Branch daily with meals. glimepiride 2021-0 Yes 4mg Take 1 Univ ers 4 mg tablet 5-02 tablet by ity of 00:00: mouth 2 [place] (two) Medical times Branch daily with meals. glimepiride 2021-0 Yes 4mg Take 1 Univ ers 4 mg tablet 5-02 tablet by ity of 00:00: mouth 2 [place] 00 (two) Medical times Branch daily with meals. insulin 0 Yes [id number] 35U inject 35 [facility] degludec 4-30 Units ity of (TRESIBA 00:00: [place] FLEXTOUCH 00 skin 2 Medical U-100) 100 (two) Branch unit/mL (3 times mL) InPn daily. atorvastati 0 Yes 40mg Take 1 Univ ers n 40 mg 4-30 tablet by ity of tablet 00:00: mouth at [place] 00 bedtime. Medical Branch fenofibrate Yes 134mg Take 1 Uni vers micronized 4-30 capsule by ity of 134 mg 00:00: mouth [place] capsule 00 daily. Medical Branch metFORMIN 0 Yes [id number] 1000mg Take 1 [facility] 1,000 mg 4-30 tablet by ity of tablet 00:00: mouth 2 (two) Medical times Branch daily with meals. blood sugar Yes [id number] Use daily [facility] diagnostic 4-30 Dx E11.65 ity of (ONETOUCH 00:00: [place] VERIO TEST 00 Medical STRIPS) Branch strip lancets 0 Yes [id number] Use daily [facility] (ONE TOUCH 4-30 Dx E11.65 ity of DELICA) 33 00:00: [place] gauge Misc 00 Medical Branch gabapentin 0 Yes [id number] 600mg Take 1 [facility] 600 mg 4-30 tablet by ity of tablet 00:00: mouth 2 00 (two) Medical times Branch daily. lisinopriL 0 Yes [id number] 2.5mg Take 1 [facility] 2.5 mg 4-30 tablet by ity of tablet 00:00: mouth [place] 00 daily. Medical Branch insulin 0 Yes [id number] 35U inject 35 [facility] degludec 4-30 Units ity of (TRESIBA 00:00: under the [place] [facility] FLEXTOUCH 00 skin 2 Medical U-100) 100 (two) Branch unit/mL (3 times mL) InPn daily. atorvastati 0 Yes 40mg Take 1 Univ ers n 40 mg 4-30 tablet by ity of tablet 00:00: mouth at [place] 00 bedtime. Medical Branch fenofibrate Yes 134mg Take 1 Uni vers micronized 4-30 capsule by ity of 134 mg 00:00: mouth [place] capsule 00 daily. Medical Branch metFORMIN Yes [id number] 1000mg Take 1 [facility] 1,000 mg 4-30 tablet by ity of tablet 00:00: mouth 2 00 (two) Medical times Branch daily with meals. blood sugar Yes [id number] Use daily [facility] diagnostic 4-30 Dx E11.65 ity of (ONETOUCH 00:00: [place] VERIO TEST 00 Medical STRIPS) Branch strip lancets Yes [id number] Use daily [facility] (ONE TOUCH 4-30 Dx E11.65 ity of DELICA) 33 00:00: [place] gauge Misc 00 Medical Branch gabapentin Yes [id number] 600mg Take 1 [facility] 600 mg 4-30 tablet by ity of tablet 00:00: mouth 2 [place] (two) Medical times Branch daily. lisinopriL Yes [id number] 2.5mg Take 1 [facility] 2.5 mg 4-30 tablet by ity of tablet 00:00: mouth [place] 00 daily. Medical Branch insulin Yes [id number] 35U inject 35 [facility] degludec 4-30 Units ity of (TRESIBA 00:00: [place] FLEXTOUCH 00 skin 2 Medical U-100) 100 (two) Branch unit/mL (3 times mL) InPn daily. atorvastati Yes 40mg Take 1 Univ ers n 40 mg 4-30 tablet by ity of tablet 00:00: mouth at [place] 00 bedtime. Medical Branch fenofibrate Yes 134mg Take 1 Uni vers micronized 4-30 capsule by ity of 134 mg 00:00: mouth [place] capsule 00 daily. Medical Branch metFORMIN Yes [id number] 1000mg Take 1 [facility] 1,000 mg 4-30 tablet by ity of tablet 00:00: mouth 2 [place] (two) Medical times Branch daily with meals. blood sugar Yes [id number] Use daily [facility] diagnostic 4-30 Dx E11.65 ity of (ONETOUCH 00:00: [place] VERIO TEST 00 Medical STRIPS) Branch strip lancets 0 Yes [id number] Use daily [facility] (ONE TOUCH 4-30 Dx E11.65 ity of DELICA) 33 00:00: [facility] 00 Medical Branch gabapentin Yes [id number] 600mg Take 1 Univers 600 mg 4-30 tablet by ity of tablet 00:00: mouth 2 [place] (two) Medical times Branch daily. lisinopriL Yes [id number] 2.5mg Take 1 [facility] 2.5 mg 4-30 tablet by ity of tablet 00:00: mouth [place] 00 daily. Medical Branch insulin Yes [id number] 35U inject 35 [facility] degludec 4-30 Units ity of (TRESIBA 00:00: [place] FLEXTOUCH 00 skin 2 Medical U-100) 100 (two) Branch unit/mL (3 times mL) InPn daily. atorvastati Yes 40mg Take 1 Univ ers n 40 mg 4-30 tablet by ity of tablet 00:00: mouth at [place] 00 bedtime. Medical Branch fenofibrate Yes 134mg Take 1 Uni vers micronized 4-30 capsule by ity of 134 mg 00:00: mouth [place] capsule 00 daily. Medical Branch metFORMIN Yes [id number] 1000mg Take 1 Univers 1,000 mg 4-30 tablet by ity of tablet 00:00: mouth 2 [place] (two) Medical times [place] daily with meals. blood sugar Yes [id number] Use daily [facility] diagnostic 4-30 Dx E11.65 ity of (ONETOUCH 00:00: [place] VERIO TEST 00 Medical STRIPS) Branch strip lancets Yes [id number] Use daily Univers (ONE TOUCH 4-30 Dx E11.65 ity of DELICA) 33 00:00: [facility] 00 Medical Branch gabapentin Yes [id number] 600mg Take 1 [facility] 600 mg 4-30 tablet by ity of tablet 00:00: mouth 2 [place] 00 (two) Medical times Branch daily. lisinopriL Yes [id number] 2.5mg Take 1 Univers 2.5 mg 4-30 tablet by ity of tablet 00:00: mouth [place] 00 daily. Medical Branch insulin Yes [id number] 35U inject 35 [facility] degludec 4-30 Units ity of (TRESIBA 00:00: [place] FLEXTOUCH 00 skin 2 Medical U-100) 100 (two) Branch unit/mL (3 times mL) InPn daily. atorvastati Yes 40mg Take 1 Univ ers n 40 mg 4-30 tablet by ity of tablet 00:00: mouth at [place] 00 bedtime. Medical Branch fenofibrate Yes 134mg Take 1 Uni vers micronized 4-30 capsule by ity of 134 mg 00:00: mouth [place] capsule 00 daily. Medical Branch metFORMIN Yes [id number] 1000mg Take 1 Univers 1,000 mg 4-30 tablet by ity of tablet 00:00: mouth 2 [place] 00 (two) Medical times Branch daily with meals. blood sugar Yes [id number] Use daily [facility] diagnostic 4-30 Dx E11.65 ity of (ONETOUCH 00:00: [place] VERIO TEST 00 Medical STRIPS) Branch strip lancets Yes [id number] Use daily Univers (ONE TOUCH 4-30 Dx E11.65 ity of DELICA) 33 00:00: [place] gauge Misc 00 Medical Branch gabapentin 0 Yes [id number] 600mg Take 1 [facility] 600 mg 4-30 tablet by ity of tablet 00:00: mouth 2 [place] 00 (two) Medical times Branch daily. lisinopriL Yes [id number] 2.5mg Take 1 [facility] 2.5 mg 4-30 tablet by ity of tablet 00:00: mouth [place] 00 daily. Medical Branch insulin Yes [id number] 35U inject 35 [facility] degludec 4-30 Units ity of (TRESIBA 00:00: [place] FLEXTOUCH 00 skin 2 Medical U-100) 100 (two) Branch unit/mL (3 times mL) InPn daily. atorvastati Yes 40mg Take 1 Univ ers n 40 mg 4-30 tablet by ity of tablet 00:00: mouth at [place] 00 bedtime. Medical Branch fenofibrate Yes 134mg Take 1 Uni vers micronized 4-30 capsule by ity of 134 mg 00:00: mouth [place] capsule 00 daily. Medical Branch metFORMIN Yes [id number] 1000mg Take 1 [facility] 1,000 mg 4-30 tablet by ity of tablet 00:00: mouth 2 [place] 00 (two) Medical times Branch daily with meals. blood sugar Yes [id number] Use daily [facility] diagnostic 4-30 Dx E11.65 ity of (ONETOUCH 00:00: [place] VERIO TEST 00 Medical STRIPS) Branch strip lancets Yes [id number] Use daily Univers (ONE TOUCH 4-30 Dx E11.65 ity of DELICA) 33 00:00: [place] gauge Misc 00 Medical Branch gabapentin Yes [id number] 600mg Take 1 [facility] 600 mg 4-30 tablet by ity of tablet 00:00: mouth 2 [place] 00 (two) Medical times Branch daily. lisinopriL Yes [id number] 2.5mg Take 1 Univers 2.5 mg 4-30 tablet by ity of tablet 00:00: mouth [place] 00 daily. Medical Branch glimepiride No 1mg 4 mg tablet 4-10 00:00: 00 glimepiride 0 No 1mg 4 mg tablet 4-10 00:00: 00 glimepiride 0 No 1mg 4 mg tablet 4-10 00:00: 00 glimepiride 2020-0 No 1mg 4 mg tablet 4-10 00:00: 00 ProAir HFA 0 No 12mcg/a 90 3-19 ctuatio mcg/actuati 00:00: n on aerosol 00 inhaler ProAir HFA 0 No 12mcg/a 90 3-19 ctuatio mcg/actuati 00:00: n on aerosol 00 inhaler ProAir HFA 0 No 12mcg/a 90 3-19 ctuatio mcg/actuati 00:00: n on aerosol 00 inhaler ProAir HFA 0 No 12mcg/a 90 3-19 ctuatio mcg/actuati 00:00: n on aerosol 00 inhaler Victoza No (18 3-Christofer 0.6 3-18 mg/3 mg/0.1 mL 00:00: mL) (18 mg/3 00 mL) subcutaneou s pen injector Victoza No (18 3-Christofer 0.6 3-18 mg/3 mg/0.1 mL 00:00: mL) (18 mg/3 00 mL) subcutaneou s pen injector Tresiba 2020-0 No 30(3 FlexTouch 3-18 mL) U-100 00:00: insulin 100 00 unit/mL (3 mL) subcutaneou s pen hydrochloro 2020-0 No 1mg thiazide 25 3-18 mg tablet 00:00: 00 lisinopril 1-0 No 1mg 5 mg tablet 3-18 00:00: 00 glimepiride 1-0 No 1mg 2 mg tablet 3-18 00:00: 00 metformin 1-0 No 1mg 1,000 mg 3-18 tablet 00:00: 00 Victoza 2020-0 No (18 3-Christofer 0.6 3-18 mg/3 mg/0.1 mL 00:00: mL) (18 mg/3 00 mL) subcutaneou s pen injector Victoza 2020-0 No (18 3-Christofer 0.6 3-18 mg/3 mg/0.1 mL 00:00: mL) (18 mg/3 00 mL) subcutaneou s pen injector Tresiba 2020-0 No 30(3 FlexTouch 3-18 mL) U-100 00:00: insulin 100 00 unit/mL (3 mL) subcutaneou s pen hydrochloro 2020-0 No 1mg thiazide 25 3-18 mg tablet 00:00: 00 lisinopril 1-0 No 1mg 5 mg tablet 3-18 00:00: 00 glimepiride 1-0 No 1mg 2 mg tablet 3-18 00:00: 00 metformin 1-0 No 1mg 1,000 mg 3-18 tablet 00:00: 00 Victoza 1-0 No (18 3-Christofer 0.6 3-18 mg/3 mg/0.1 mL 00:00: mL) (18 mg/3 00 mL) subcutaneou s pen injector Victoza 1-0 No (18 3-Christofer 0.6 3-18 mg/3 mg/0.1 mL 00:00: mL) (18 mg/3 00 mL) subcutaneou s pen injector Tresiba 2021-0 No 30(3 FlexTouch 3-18 mL) U-100 00:00: insulin 100 00 unit/mL (3 mL) subcutaneou s pen hydrochloro 1-0 No 1mg thiazide 25 3-18 mg tablet 00:00: 00 lisinopril 2021-0 No 1mg 5 mg tablet 3-18 00:00: 00 glimepiride 2021-0 No 1mg 2 mg tablet 3-18 00:00: 00 metformin 2021-0 No 1mg 1,000 mg 3-18 tablet 00:00: 00 Victoza 1-0 No (18 3-Christofer 0.6 3-18 mg/3 mg/0.1 mL 00:00: mL) (18 mg/3 00 mL) subcutaneou s pen injector Victoza 1-0 No (18 3-Christofer 0.6 3-18 mg/3 mg/0.1 mL 00:00: mL) (18 mg/3 00 mL) subcutaneou s pen injector Tresiba 1-0 No 30(3 FlexTouch 3-18 mL) U-100 00:00: insulin 100 00 unit/mL (3 mL) subcutaneou s pen hydrochloro 1-0 No 1mg thiazide 25 3-18 mg tablet 00:00: 00 lisinopril 1-0 No 1mg 5 mg tablet 3-18 00:00: 00 glimepiride 2021-0 No 1mg 2 mg tablet 3-18 00:00: 00 metformin 2021-0 No 1mg 1,000 mg 3-18 tablet 00:00: 00 hydrochloro 2021-0 No 1mg thiazide 25 3-16 mg tablet 00:00: 00 metformin 2021-0 No 1mg 1,000 mg 3-16 tablet 00:00: 00 glimepiride 2021-0 No 1mg 2 mg tablet 3-16 00:00: 00 atorvastati 2021-0 No 1mg n 40 mg 3-16 tablet 00:00: 00 gabapentin 2021-0 No 1mg 600 mg 3-16 tablet 00:00: 00 hydrochloro 2021-0 No 1mg thiazide 25 3-16 mg tablet 00:00: 00 metformin 2021-0 No 1mg 1,000 mg 3-16 tablet 00:00: 00 glimepiride 2021-0 No 1mg 2 mg tablet 3-16 00:00: 00 atorvastati 2021-0 No 1mg n 40 mg 3-16 tablet 00:00: 00 gabapentin 2021-0 No 1mg 600 mg 3-16 tablet 00:00: 00 hydrochloro 2021-0 No 1mg thiazide 25 3-16 mg tablet 00:00: 00 metformin 2021-0 No 1mg 1,000 mg 3-16 tablet 00:00: 00 glimepiride 2021-0 No 1mg 2 mg tablet 3-16 00:00: 00 atorvastati 2021-0 No 1mg n 40 mg 3-16 tablet 00:00: 00 gabapentin 2021-0 No 1mg 600 mg 3-16 tablet 00:00: 00 hydrochloro 2021-0 No 1mg thiazide 25 3-16 mg tablet 00:00: 00 metformin 2021-0 No 1mg 1,000 mg 3-16 tablet 00:00: 00 glimepiride 2021-0 No 1mg 2 mg tablet 3-16 00:00: 00 atorvastati 2021-0 No 1mg n 40 mg 3-16 tablet 00:00: 00 gabapentin 2021-0 No 1mg 600 mg 3-16 tablet 00:00: 00 fluconazole 2021-0 No mg 150 mg 1-28 tablet 00:00: 00 metronidazo 2021-0 No 1mg le 500 mg 1-28 tablet 00:00: 00 Macrobid 2021-0 No 1mg 100 mg 1-28 capsule 00:00: 00 fluconazole 2021-0 No mg 150 mg 1-28 tablet 00:00: 00 metronidazo 2021-0 No 1mg le 500 mg 1-28 tablet 00:00: 00 Macrobid 2021-0 No 1mg 100 mg 1-28 capsule 00:00: 00 fluconazole 2021-0 No mg 150 mg 1-28 tablet 00:00: 00 metronidazo 2021-0 No 1mg le 500 mg 1-28 tablet 00:00: 00 Macrobid 2021-0 No 1mg 100 mg 1-28 capsule 00:00: 00 fluconazole 2021-0 No mg 150 mg 1-28 tablet 00:00: 00 metronidazo 2021-0 No 1mg le 500 mg 1-28 tablet 00:00: 00 Macrobid 2020-0 No 1mg 100 mg 1-28 capsule 00:00: 00 Victoza 2019-07 No (18 3-Christofer 0.6 2-23 mg/3 mg/0.1 mL 00:00: mL) (18 mg/3 00 mL) subcutaneou s pen injector Tresiba 2019-07 No 30(3 FlexTouch 2-23 mL) U-100 00:00: insulin 100 00 unit/mL (3 mL) subcutaneou s pen hydrochloro 2019-07 No 1mg thiazide 25 2-23 mg tablet 00:00: 00 glimepiride 2019-07 No 1mg 2 mg tablet 2-23 00:00: 00 metformin 2019-07 No 1mg 1,000 mg 2-23 tablet 00:00: 00 atorvastati 2019-07 No 1mg n 40 mg 2-23 tablet 00:00: 00 gabapentin 2019-07 No 1mg 600 mg 2-23 tablet 00:00: 00 Victoza 2019-07 No (18 3-Christofer 0.6 2-23 mg/3 mg/0.1 mL 00:00: mL) (18 mg/3 00 mL) subcutaneou s pen injector Tresiba 2019-07 No 30(3 FlexTouch 2-23 mL) U-100 00:00: insulin 100 00 unit/mL (3 mL) subcutaneou s pen hydrochloro 2019-07 No 1mg thiazide 25 2-23 mg tablet 00:00: 00 glimepiride 2019-07 No 1mg 2 mg tablet 2-23 00:00: 00 metformin 2019-07 No 1mg 1,000 mg 2-23 tablet 00:00: 00 atorvastati 2019-07 No 1mg n 40 mg 2-23 tablet 00:00: 00 gabapentin 2019-07 No 1mg 600 mg 2-23 tablet 00:00: 00 Victoza 2019-07 No (18 3-Christofer 0.6 2-23 mg/3 mg/0.1 mL 00:00: mL) (18 mg/3 00 mL) subcutaneou s pen injector Tresiba 2019-07 No 30(3 FlexTouch 2-23 mL) U-100 00:00: insulin 100 00 unit/mL (3 mL) subcutaneou s pen hydrochloro 2019-07 No 1mg thiazide 25 2-23 mg tablet 00:00: 00 glimepiride 2019-07 No 1mg 2 mg tablet 2-23 00:00: 00 metformin 2019- No 1mg 1,000 mg 2-23 tablet 00:00: 00 atorvastati 2019-07 No 1mg n 40 mg 2-23 tablet 00:00: 00 gabapentin 2019-07 No 1mg 600 mg 2-23 tablet 00:00: 00 Victoza 2019- No (18 3-Christofer 0.6 2-23 mg/3 mg/0.1 mL 00:00: mL) (18 mg/3 00 mL) subcutaneou s pen injector Tresiba 2019- No 30(3 FlexTouch 2-23 mL) U-100 00:00: insulin 100 00 unit/mL (3 mL) subcutaneou s pen hydrochloro 2019-07 No 1mg thiazide 25 2-23 mg tablet 00:00: 00 glimepiride 2019-07 No 1mg 2 mg tablet 2-23 00:00: 00 metformin 2019-07 No 1mg 1,000 mg 2-23 tablet 00:00: 00 atorvastati 2019-07 No 1mg n 40 mg 2-23 tablet 00:00: 00 gabapentin 2019-07 No 1mg 600 mg 2-23 tablet 00:00: 00 lisinopril 2019-07 No 1mg 5 mg tablet 2-04 00:00: 00 glimepiride 2019-07 No 1mg 1 mg tablet 2-04 00:00: 00 metformin 2019- No 1mg 1,000 mg 2-04 tablet 00:00: 00 gabapentin 2019- No 1mg 600 mg 2-04 tablet 00:00: 00 lisinopril 2019-07 No 1mg 5 mg tablet 2-04 00:00: 00 glimepiride 2019-07 No 1mg 1 mg tablet 2-04 00:00: 00 metformin 2019- No 1mg 1,000 mg 2-04 tablet 00:00: 00 gabapentin 2019- No 1mg 600 mg 2-04 tablet 00:00: 00 lisinopril 2019- No 1mg 5 mg tablet 2-04 00:00: 00 glimepiride 2019- No 1mg 1 mg tablet 2-04 00:00: 00 metformin 2020-1 No 1mg 1,000 mg 2-04 tablet 00:00: 00 gabapentin 2020-1 No 1mg 600 mg 2-04 tablet 00:00: 00 lisinopril 2020-1 No 1mg 5 mg tablet 2-04 00:00: 00 glimepiride 2019-1 No 1mg 1 mg tablet 2-04 00:00: 00 metformin 2020-1 No 1mg 1,000 mg 2-04 tablet 00:00: 00 gabapentin 2020-1 No 1mg 600 mg 2-04 tablet 00:00: 00 Bactrim DS 2019-1 No 1mg 800 mg-160 1-05 mg tablet 00:00: 00 Pyridium 2020-1 No 1mg 100 mg 1-05 tablet 00:00: 00 Bactrim DS 2019- No 1mg 800 mg-160 1-05 mg tablet 00:00: 00 Pyridium 2019-1 No 1mg 100 mg 1-05 tablet 00:00: 00 Bactrim DS 2019- No 1mg 800 mg-160 1-05 mg tablet 00:00: 00 Pyridium 2019-1 No 1mg 100 mg 1-05 tablet 00:00: 00 Bactrim DS 2019-1 No 1mg 800 mg-160 1-05 mg tablet 00:00: 00 Pyridium 2019-1 No 1mg 100 mg 1-05 tablet 00:00: 00 hydrochloro 2019-1 No 1mg thiazide 25 0-13 mg tablet 00:00: 00 lisinopril 2019- No 1mg 5 mg tablet 0-13 00:00: 00 metformin 2019-1 No 1mg 1,000 mg 0-13 tablet 00:00: 00 glimepiride 2019-1 No 1mg 1 mg tablet 0-13 00:00: 00 atorvastati 2019-1 No 1mg n 40 mg 0-13 tablet 00:00: 00 gabapentin 2019-1 No 1mg 600 mg 0-13 tablet 00:00: 00 hydrochloro 2019-1 No 1mg thiazide 25 0-13 mg tablet 00:00: 00 lisinopril 2019- No 1mg 5 mg tablet 0-13 00:00: 00 metformin 2019-1 No 1mg 1,000 mg 0-13 tablet 00:00: 00 glimepiride 2019- No 1mg 1 mg tablet 0-13 00:00: 00 atorvastati 2020-1 No 1mg n 40 mg 0-13 tablet 00:00: 00 gabapentin 2020-1 No 1mg 600 mg 0-13 tablet 00:00: 00 hydrochloro 2020-1 No 1mg thiazide 25 0-13 mg tablet 00:00: 00 lisinopril 2020-1 No 1mg 5 mg tablet 0-13 00:00: 00 metformin 2020-1 No 1mg 1,000 mg 0-13 tablet 00:00: 00 glimepiride 2020-1 No 1mg 1 mg tablet 0-13 00:00: 00 atorvastati 2020-1 No 1mg n 40 mg 0-13 tablet 00:00: 00 gabapentin 2020-1 No 1mg 600 mg 0-13 tablet 00:00: 00 hydrochloro 2020-1 No 1mg thiazide 25 0-13 mg tablet 00:00: 00 lisinopril 2020-1 No 1mg 5 mg tablet 0-13 00:00: 00 metformin 2020-1 No 1mg 1,000 mg 0-13 tablet 00:00: 00 glimepiride 2019-1 No 1mg 1 mg tablet 0-13 00:00: 00 atorvastati 2020-1 No 1mg n 40 mg 0-13 tablet 00:00: 00 gabapentin 2020-1 No 1mg 600 mg 0-13 tablet 00:00: 00 hydrochloro 2020-0 No 1mg thiazide 25 8-31 mg tablet 00:00: 00 lisinopril 2020-0 No 1mg 5 mg tablet 8-31 00:00: 00 hydrochloro 2020-0 No 1mg thiazide 25 8-31 mg tablet 00:00: 00 lisinopril 2020-0 No 1mg 5 mg tablet 831 00:00: 00 metformin 2020-0 No 1mg 1,000 mg 8-31 tablet 00:00: 00 glimepiride 2020-0 No 1mg 1 mg tablet 8 00:00: 00 metformin 2020-0 No 1mg 1,000 mg 8-31 tablet 00:00: 00 glimepiride 2020-0 No 1mg 1 mg tablet 8 00:00: 00 atorvastati 2020-0 No 1mg n 40 mg 8-31 tablet 00:00: 00 atorvastati 2020-0 No 1mg n 40 mg 8-31 tablet 00:00: 00 gabapentin 2020-0 No 1mg 600 mg 8-31 tablet 00:00: 00 gabapentin 2020-0 No 1mg 600 mg 8-31 tablet 00:00: 00 Xenical 120 2020-0 No 1mg mg capsule 03-10 00:00: 00 hydrochloro 2020-0 No 1mg thiazide 25 8-31 mg tablet 00:00: 00 lisinopril 2020-0 No 1mg 5 mg tablet 03-10 00:00: 00 hydrochloro 2020-0 No 1mg thiazide 25 8-31 mg tablet 00:00: 00 lisinopril 2020-0 No 1mg 5 mg tablet 03-10 00:00: 00 hydrochloro 2020-0 No 1mg thiazide 25 8-31 mg tablet 00:00: 00 metformin 2020-0 No 1mg 1,000 mg 8- tablet 00:00: 00 lisinopril 2020-0 No 1mg 5 mg tablet 03-10 00:00: 00 hydrochloro 2020-0 No 1mg thiazide 25 8-31 mg tablet 00:00: 00 lisinopril 2020-0 No 1mg 5 mg tablet 03-10 00:00: 00 metformin 2020-0 [...] 00 gabapentin 2020-0 No 1mg 600 mg 8- tablet 00:00: 00 glimepiride 2020-0 No 1mg 1 mg tablet 03-10 00:00: 00 gabapentin 2020-0 No 1mg 600 mg 8-31 tablet 00:00: 00 Xenical 120 2020-0 No 1mg mg capsule 03-10 00:00: 00 metformin 2020-0 No 1mg [...] No 1mg mg capsule 03-10 00:00: 00 hydrochloro 2020-0 No 1mg thiazide 25 8-31 mg tablet 00:00: 00 lisinopril 2020-0 No 1mg 5 mg tablet 8 00:00: 00 hydrochloro 2020-0 No 1mg thiazide 25 8-31 mg tablet 00:00: 00 lisinopril 2020-0 No 1mg 5 mg tablet 03-10 00:00: 00 metformin 2020-0 [...] 00 unit/mL (3 mL) subcutaneou s pen Victoza 2020-0 No (18 3-Christofer 0.6 7-27 mg/3 mg/0.1 mL 00:00: mL) (18 mg/3 00 mL) subcutaneou s pen injector Tresiba 2020-0 No 30(3 FlexTouch 7-27 mL) U-100 00:00: insulin 100 00 unit/mL (3 mL) subcutaneou s pen Victoza 2020-0 No (18 3-Christofer 0.6 7-27 mg/3 mg/0.1 mL 00:00: mL) (18 mg/3 00 mL) subcutaneou s pen injector Tresiba 2020-0 No 30(3 FlexTouch 7-27 mL) U-100 00:00: insulin 100 00 unit/mL (3 mL) subcutaneou s pen Victoza 2020-0 No (18 3-Christofer 0.6 7-27 mg/3 mg/0.1 mL 00:00: mL) (18 mg/3 00 mL) subcutaneou s pen injector Tresiba 2020-0 No 30(3 FlexTouch 7-27 mL) U-100 00:00: insulin 100 00 unit/mL (3 mL) subcutaneou s pen hydrochloro 2020-0 No 1mg thiazide 25 7-18 mg tablet 00:00: 00 glimepiride 2020-0 No 1mg 1 mg tablet 718 00:00: 00 metformin 2020-0 No 1mg 1,000 mg 7-18 tablet 00:00: 00 atorvastati 2020-0 No 1mg n 40 mg 7-18 tablet 00:00: 00 hydrochloro 2020-0 No 1mg thiazide 25 7-18 mg tablet 00:00: 00 glimepiride 2020-0 No 1mg 1 mg tablet 718 00:00: 00 metformin 2020-0 No 1mg 1,000 mg 7-18 tablet 00:00: 00 atorvastati 2020-0 No 1mg n 40 mg 7-18 tablet 00:00: 00 hydrochloro 2020-0 No 1mg thiazide 25 7-18 mg tablet 00:00: 00 glimepiride 2020-0 No 1mg 1 mg tablet 718 00:00: 00 metformin 2020-0 No 1mg 1,000 mg 7-18 tablet 00:00: 00 atorvastati 2020-0 No 1mg n 40 mg 7-18 tablet 00:00: 00 hydrochloro 2020-0 No 1mg thiazide 25 7-18 mg tablet 00:00: 00 glimepiride 2020-0 No 1mg 1 mg tablet 7-18 00:00: 00 metformin 2020-0 No 1mg 1,000 mg 7-18 tablet 00:00: 00 atorvastati 2020-0 No 1mg n 40 mg 7-18 tablet 00:00: 00 amoxicillin 2020-0 No 1mg 875 6-13 mg-potassiu 00:00: m 00 clavulanate 125 mg tablet amoxicillin 2020-0 No 1mg 875 6-13 mg-potassiu 00:00: m 00 clavulanate 125 mg tablet amoxicillin 2020-0 No 1mg 875 6-13 mg-potassiu 00:00: m 00 clavulanate 125 mg tablet amoxicillin 2020-0 No 1mg 875 6-13 mg-potassiu [...] 1mg 600 mg 6-10 tablet 00:00: 00 Victoza 2020-0 No (18 3-Christofer 0.6 6-10 [...] 1mg 600 mg 6-10 tablet 00:00: 00 Victoza 2020-0 No (18 3-Christofer 0.6 6-10 [...] 1mg 600 mg 6-10 tablet 00:00: 00 Victoza 2020-0 No (18 3-Christofer 0.6 6-10 [...] 1mg 600 mg 6-10 tablet 00:00: 00 MV,CA,MIN/I 2020-0 Yes Take by [facility] SUNNY/FA/GUAR 5-[address] [facility]/CAFF 11:53: [facility]osp[facility] (ONE-A-DAY 29 l WOMEN'S ACTIVE ORAL) MV,CA,MIN/I 2020-0 Yes Take by [facility] SUNNY/FA/GUAR 5-[address] [facility]/CAFF 11:53: Hospita (ONE-A-DAY 29 l WOMEN'S ACTIVE ORAL) MV,CA,MIN/I 2020-0 Yes Take by [facility] SUNNY/FA/GUAR 5-[address] [facility]O/CAFF 11:53: Hospita (ONE-A-DAY 29 l WOMEN'S ACTIVE ORAL) MV,CA,MIN/I 2020-0 Yes Take by [facility] SUNNY/FA/GUAR 5-[address] [facility]O/CAFF 11:53: Hospita (ONE-A-DAY 29 l WOMEN'S ACTIVE ORAL) MV,CA,MIN/I 2020-0 Yes Take by [facility] SUNNY/FA/GUAR 5-[address] [facility]O/CAFF 11:53: Hospita (ONE-A-DAY 29 l WOMEN'S ACTIVE ORAL) lisinopril 2020-0 No 1mg 5 mg tablet 5-12 00:00: 00 lisinopril 2020-0 No 1mg 5 mg tablet 5-12 00:00: 00 lisinopril 2020-0 No 1mg 5 mg tablet 5-12 00:00: 00 lisinopril 2020-0 No 1mg 5 mg tablet 5-12 00:00: 00 nystatin-tr 2020-0 Yes [id number] Q.25D Apply [facility] iamcinolone 4-[address] (MYCOLOG 00:00: 4 (four) Hospi ta II) 00 times a l 100,000-0.1 day as unit/g-% needed cream (vaginal itching or infection) . To outer vagina nystatin-tr 2020-0 Yes [id number] Q.25D Apply [facility] iamcinolone 4-[address] (MYCOLOG 00:00: 4 (four) Hospi ta II) 00 times a l 100,000-0.1 day as unit/g-% needed cream (vaginal itching or infection) . To outer vagina nystatin-tr 2020-0 Yes [id number] Q.25D Apply [facility] iamcinolone 4-[address] (MYCOLOG 00:00: 4 (four) Hospi ta II) 00 times a l 100,000-0.1 day as unit/g-% needed cream (vaginal itching or infection) . To outer vagina nystatin-tr 2020-0 Yes [id number] Q.25D Apply [facility] iamcinolone 4-[address] (MYCOLOG 00:00: 4 (four) Hospi ta II) 00 times a l 100,000-0.1 day as unit/g-% needed cream (vaginal itching or infection) . To outer vagina nystatin-tr 2020-0 Yes [id number] Q.25D Apply [facility] iamcinolone 4-[address] (MYCOLOG 00:00: 4 (four) Hospi ta II) 00 times a l 100,000-0.1 day as unit/g-% needed cream (vaginal itching or infection) . To outer vagina amb custom 2020-0 Yes Boric acid M [facility]i compound 4-[address] 00:00: [facility] y: insert l 1(one) vaginally at night for 14 (fourteen) days. amb custom 2020-0 Yes Boric acid M ethodi compound 4-[address] 00:00: [facility] 00 y: insert l 1(one) vaginally at night for 14 (fourteen) days. amb custom 2020-0 Yes Boric acid M ethodi compound 4-[address] 00:00: [facility] 00 y: insert l 1(one) vaginally at night for 14 (fourteen) days. amb custom 2020-0 Yes Boric acid M ethodi compound 4-[address] 00:00: [facility] 00 y: insert l 1(one) vaginally at night for 14 (fourteen) days. amb custom 2020-0 Yes Boric acid M ethodi compound 4-[address] 00:00: [facility] 00 y: insert l 1(one) vaginally at night for 14 (fourteen) days. Ozempic 2020-0 No (5)/125 0.25 mg or 3-30 -30(10) 0.5 mg (2 00:00: mg/1.5 mL) 00 subcutaneou s pen injector Ozempic 2020-0 No mg(2 0.25 mg or 3-30 mg/1.5 0.5 mg (2 00:00: mL) mg/1.5 mL) 00 subcutaneou s pen injector Ozempic 2020-0 No (5)/125 0.25 mg or 3-30 -30(10) 0.5 mg (2 00:00: mg/1.5 mL) 00 subcutaneou s pen injector Ozempic 2020-0 No (5)/125 0.25 mg or 3-30 -30(10) 0.5 mg (2 00:00: mg/1.5 mL) 00 subcutaneou s pen injector HEParin 2020-0 Yes [id number] Q7D Meth ally (porcine) 3-24 st injection 17:00: Hospita 20,000 00 l Units HEParin 2020-0 Yes [id number] Q7D Meth ally (porcine) 3-24 st injection 17:00: Hospita 20,000 00 l Units HEParin 2020-0 Yes [id number] Q7D Meth ally (porcine) 3-24 st injection 17:00: Hospita 20,000 00 l Units HEParin 2020-0 Yes [id number] Q7D Meth ally (porcine) 3-24 st injection 17:00: Hospita 20,000 00 l Units HEParin 2020-0 Yes [id number] Q7D Meth ally (porcine) 3-24 st injection 17:00: Hospita 20,000 00 l Units conjugated 2020-0 Yes [id number] Apply 0.5 [facility] estrogens 3-[address] (Premarin) 00:00: vaginally [facility] 0.625 00 either l mg/gram internally vaginal (applicato cream r) or with finger to outer vagina twice weekly at night conjugated 2020-0 Yes [id number] Apply 0.5 [facility] estrogens 3-[address] (Premarin) 00:00: vaginally [facility] 0.625 00 either l mg/gram internally vaginal (applicato cream r) or with finger to outer vagina twice weekly at night conjugated 2020-0 Yes [id number] Apply 0.5 [facility] estrogens 3-[address] (Premarin) 00:00: vaginally [facility] 0.625 00 either l mg/gram internally vaginal (applicato cream r) or with finger to outer vagina twice weekly at night conjugated 2020-0 Yes [id number] Apply 0.5 [facility] estrogens 3-[address] (Premarin) 00:00: vaginally [facility] 0.625 00 either l mg/gram internally vaginal (applicato cream r) or with finger to outer vagina twice weekly at night conjugated 2020-0 Yes [id number] Apply 0.5 [facility] estrogens 3-[address] (Premarin) 00:00: vaginally [facility] 0.625 00 either l mg/gram internally vaginal (applicato cream r) or with finger to outer vagina twice weekly at night amb custom 2020-0 Yes [facility] compound 3- vaginal st 00:00: cream: 6% [facility]osp[facility] 00 gabapentin l , 2% Lidocaine, 2 % baclofen in water washable based. Apply 0.5 gram to outer vagina once or twice daily. amb custom 2020-0 Yes [facility] compound 3- vaginal st 00:00: cream: 6% [facility]osp[facility] 00 gabapentin l , 2% Lidocaine, 2 % baclofen in water washable based. Apply 0.5 gram to outer vagina once or twice daily. amb custom 2020-0 Yes [facility] compound - vaginal st 00:00: cream: 6% [facility]osp[facility] 00 gabapentin l , 2% Lidocaine, 2 % baclofen in water washable based. Apply 0.5 gram to outer vagina once or twice daily. amb custom 2020-0 Yes [facility] compound 09-[address] 00:00: cream: 6% [facility]osp[facility] 00 gabapentin l , 2% Lidocaine, 2 % baclofen in water washable based. Apply 0.5 gram to outer vagina once or twice daily. amb custom 2020-0 Yes [facility] compound 09-[address] 00:00: cream: 6% [facility]osp[facility] 00 gabapentin l , 2% Lidocaine, 2 % baclofen in water washable based. Apply 0.5 gram to outer vagina once or twice daily. FREESTYLE 2020-0 Yes [id number] 1{each} 1 Each [facility] 14 3-03 every 14 ity of DAY SENSOR 00:00: (fourteen) [place] [facility] days. [facility] FREESTYLE 2020-0 Yes [id number] 1{each} 1 Each [facility] 14 3-03 daily. ity of DAY READER 00:00: [facility] 00 Medical Branch FREESTYLE 2020-0 Yes [id number] 1{each} 1 Each [facility] 14 3-03 every 14 ity of DAY SENSOR 00:00: (fourteen) [place] [facility] 00 days. [facility] FREESTYLE 2020-0 Yes [id number] 1{each} 1 Each [facility] 14 3-03 daily. ity of DAY READER 00:00: [place] [address] Medical Branch FREESTYLE 2020-0 Yes [id number] 1{each} 1 Each [facility] 14 3-03 every 14 ity of DAY SENSOR 00:00: (fourteen) [place] [facility] 00 days. [facility] FREESTYLE 2020-0 Yes [id number] 1{each} 1 Each [facility] 14 3-03 daily. ity of DAY READER 00:00: [facility] 00 Medical Branch FREESTYLE 2020-0 Yes [id number] 1{each} 1 Each [facility] 14 3-03 every 14 ity of DAY SENSOR 00:00: (fourteen) [place] [facility] 00 days. [facility] FREESTYLE 2020-0 Yes [id number] 1{each} 1 Each [facility] 14 3-03 daily. ity of DAY READER 00:00: [place] [address] Medical Branch FREESTYLE 2020-0 Yes [id number] 1{each} 1 Each [facility] 14 3-03 every 14 ity of DAY SENSOR 00:00: (fourteen) [place] [facility] 00 days. [facility] FREESTYLE 2020-0 Yes [id number] 1{each} 1 Each [facility] 14 3-03 daily. ity of DAY READER 00:00: [place] [address] [facility] Branch FREESTYLE 2020-0 Yes [id number] 1{each} 1 Each [facility] 14 3-03 every 14 ity of DAY SENSOR 00:00: (fourteen) [place] [facility] 00 days. [facility] FREESTYLE 2020-0 Yes [id number] 1{each} 1 Each [facility] 14 3-03 daily. ity of DAY READER 00:00: [place] [address] [facility] Ozempic 2020-0 No (5)/125 0.25 mg or 2-19 -30(10) 0.5 mg (2 00:00: mg/1.5 mL) 00 subcutaneou s pen injector lisinopril 2020-0 No 1mg 5 mg tablet 2-19 00:00: 00 metformin 2020-0 No 1mg 1,000 mg 2-19 tablet 00:00: 00 atorvastati 2020-0 No 1mg n 40 mg 2-19 tablet 00:00: 00 Ozempic 2020-0 No mg(2 0.25 mg or 2-19 mg/1.5 0.5 mg (2 00:00: mL) mg/1.5 mL) 00 subcutaneou s pen injector lisinopril 2020-0 No 1mg 5 mg tablet 2-19 00:00: 00 metformin 2020-0 No 1mg 1,000 mg 2-19 tablet 00:00: 00 atorvastati 2020-0 No 1mg n 40 mg 2-19 tablet 00:00: 00 Ozempic 2020-0 No (5)/125 0.25 mg or 2-19 -30(10) 0.5 mg (2 00:00: mg/1.5 mL) 00 subcutaneou s pen injector lisinopril 2020-0 No 1mg 5 mg tablet 2-19 00:00: 00 metformin 2020-0 No 1mg 1,000 mg 2-19 tablet 00:00: 00 atorvastati 2020-0 No 1mg n 40 mg 2-19 tablet 00:00: 00 Ozempic 2020-0 No (5)/125 0.25 mg or 2-19 -30(10) 0.5 mg (2 00:00: mg/1.5 mL) 00 subcutaneou s pen injector lisinopril 2020-0 No 1mg 5 mg tablet 2-19 00:00: 00 metformin 2020-0 No 1mg 1,000 mg 2-19 tablet 00:00: 00 atorvastati 2020-0 No 1mg n 40 mg 2-19 tablet 00:00: 00 Diflucan 2020-0 No 1mg 150 mg 1-16 tablet 00:00: 00 Diflucan 2020-0 No 1mg 150 mg 1-16 tablet 00:00: 00 Diflucan 2020-0 No 1mg 150 mg 1-16 tablet 00:00: 00 Diflucan 2020-0 No 1mg 150 mg 1-16 tablet 00:00: 00 Flagyl 500 2018-1 No 1mg mg tablet 2-30 00:00: 00 Flagyl 500 2018- No 1mg mg tablet 2-30 00:00: 00 Flagyl 500 2018- No 1mg mg tablet 2-30 00:00: 00 Flagyl 500 2018- No 1mg mg tablet 2-30 00:00: 00 traMADol 2018- Yes [id number] 50mg Take 1 [facility] vers (ULTRAM) 50 2-28 tablet by ity of mg tablet 00:00: mouth [place] 00 every 6 Medical (six) Branch hours as needed for Pain (scale 7-10). ondansetron 2018-07 Yes [id number] 4mg Take 1 [facility] (ZOFRAN) 4 2-28 tablet by ity of mg tablet 00:00: mouth [place] 00 every 8 Medical (eight) Branch hours as needed for Nausea and Vomiting (N/V). ondansetron 2018-07 Yes [id number] 4mg Take 1 [facility] (ZOFRAN) 4 2-28 tablet by ity of mg tablet 00:00: mouth [place] 00 every 8 Medical (eight) Branch hours as needed for Nausea and Vomiting (N/V). ondansetron 2018-07 Yes [id number] 4mg Take 1 [facility] (ZOFRAN) 4 2-28 tablet by ity of mg tablet 00:00: mouth [place] 00 every 8 Medical (eight) Branch hours as needed for Nausea and Vomiting (N/V). ondansetron 2018-07 Yes [id number] 4mg Take 1 [facility] (ZOFRAN) 4 2-28 tablet by ity of mg tablet 00:00: mouth [place] 00 every 8 Medical (eight) Branch hours as needed for Nausea and Vomiting (N/V). ondansetron 2018-07 Yes [id number] 4mg Take 1 [facility] (ZOFRAN) 4 2-28 tablet by ity of mg tablet 00:00: mouth [place] 00 every 8 Medical (eight) Branch hours as needed for Nausea and Vomiting (N/V). ondansetron 2018-07 Yes [id number] 4mg Take 1 [facility] (ZOFRAN) 4 2-28 tablet by ity of mg tablet 00:00: mouth [place] 00 every 8 Medical (eight) Branch hours as needed for Nausea and Vomiting (N/V). traMADol 2018-07- No [id number] 50mg Take 1 [facility] (ULTRAM) 50 2-28 11-20 tablet by it y of mg tablet 00:00: 00:00 mouth [place] 00 :00 every 6 Medical (six) Branch hours as needed for Pain (scale 7-10). ibuprofen 2018-07 No 1mg 800 mg 2-19 tablet 00:00: 00 Contrave 8 2018-07 No 1mg mg-90 mg 2-19 tablet,exte 00:00: nded 00 release ibuprofen 2019-1 No 1mg 800 mg 2-19 tablet 00:00: 00 Contrave 8 2019-1 No 1mg mg-90 mg 2-19 tablet,exte 00:00: nded 00 release ibuprofen 2019-1 No 1mg 800 mg 2-19 tablet 00:00: 00 Contrave 8 2019-1 No 1mg mg-90 mg 2-19 tablet,exte 00:00: nded 00 release ibuprofen 2019-1 No 1mg 800 mg 2-19 tablet 00:00: 00 Contrave 8 2018-1 No 1mg mg-90 mg 2-19 tablet,exte 00:00: nded 00 release triamcinolo 2019-1 No 1% ne 0-16 acetonide 00:00: 0.1 % 00 topical ointment ketoconazol 2018-1 No 1% e 2 % 0-16 shampoo 00:00: 00 Xenical 120 2019-1 No 1mg mg capsule 0-16 00:00: 00 Xenical 120 2019-1 No 1mg mg capsule 0-16 00:00: 00 triamcinolo 2019-1 No 1% ne 0-16 acetonide 00:00: 0.1 % 00 topical ointment ketoconazol 2018-1 No 1% e 2 % 0-16 shampoo 00:00: 00 Xenical 120 2019-1 No 1mg mg capsule 0-16 00:00: 00 Xenical 120 2019-1 No 1mg mg capsule 0-16 00:00: 00 triamcinolo 2019-1 No 1% ne 0-16 acetonide 00:00: 0.1 % 00 topical ointment ketoconazol 2018-1 No 1% e 2 % 0-16 shampoo 00:00: 00 Xenical 120 2019-1 No 1mg mg capsule 0-16 00:00: 00 Xenical 120 2019-1 No 1mg mg capsule 0-16 00:00: 00 triamcinolo 2019-1 No 1% ne 0-16 acetonide 00:00: 0.1 % 00 topical ointment ketoconazol 2019-1 No 1% e 2 % 0-16 shampoo 00:00: 00 Xenical 120 2019-1 No 1mg mg capsule 0-16 00:00: 00 Xenical 120 2019-1 No 1mg mg capsule 0-16 00:00: 00 Polytrim 2019-1 No 11 10,000 0-14 mg/mL unit-1 00:00: mg/mL eye 00 drops Polytrim 2019- No 11 10,000 0-14 mg/mL unit-1 00:00: mg/mL eye 00 drops Polytrim 2019- No 11 10,000 0-14 mg/mL unit-1 00:00: mg/mL eye 00 drops Polytrim 2019- No 11 10,000 0-14 mg/mL unit-1 00:00: mg/mL eye 00 drops metronidazo 2019-1 No 1mg le 500 mg 0-11 tablet 00:00: 00 metronidazo 2019-1 No 1mg le 500 mg 0-11 tablet 00:00: 00 metronidazo 2019-1 No 1mg le 500 mg 0-11 tablet 00:00: 00 metronidazo 2019-1 No 1mg le 500 mg 0-11 tablet 00:00: 00 metronidazo 2019-1 No 1mg le 500 mg 0-03 tablet 00:00: 00 metronidazo 2019-1 No 1mg le 500 mg 0-03 tablet 00:00: 00 metronidazo 2019-1 No 1mg le 500 mg 0-03 tablet 00:00: 00 metronidazo 2019-1 No 1mg le 500 mg 0-03 tablet 00:00: 00 clotrimazol 2019-1 No 1% e 1 % 0-01 vaginal 00:00: cream 00 clotrimazol 2019-1 No 1% e 1 % 0-01 vaginal 00:00: cream 00 clotrimazol 2019-1 No 1% e 1 % 0-01 vaginal 00:00: cream 00 clotrimazol 2019-1 No 1% e 1 % 0-01 vaginal 00:00: cream 00 atorvastati 2019-0 No 1mg n 40 mg 9-26 tablet 00:00: 00 atorvastati 2019-0 No 1mg n 40 mg 9-26 tablet 00:00: 00 atorvastati 2019-0 No 1mg n 40 mg 9-26 tablet 00:00: 00 atorvastati 2019-0 No 1mg n 40 mg 9-26 tablet 00:00: 00 lisinopril 2019-0 No 1mg 5 mg tablet 04-04 00:00: 00 metformin 2019-0 No 1mg 1,000 mg 9-25 tablet 00:00: 00 lisinopril 2019-0 No 1mg 5 mg tablet 04-04 00:00: 00 metformin 2019-0 No 1mg 1,000 mg 9-25 tablet 00:00: 00 lisinopril 2019-0 No 1mg 5 mg tablet 04-04 00:00: 00 metformin 2019-0 No 1mg 1,000 mg 9-25 tablet 00:00: 00 lisinopril 2019-0 No 1mg 5 mg tablet 04-04 00:00: 00 metformin 2019-0 No 1mg 1,000 mg 9-25 tablet 00:00: 00 propranolol 2019-0 No 1mg 20 mg 9-17 tablet 00:00: 00 bupropion 2019-0 No 1mg HCl SR 150 9-17 mg 00:00: tablet,12 00 hr sustained-r elease mirtazapine 2019-0 No 1mg 45 mg 9-17 tablet 00:00: 00 hydroxyzine 2019-0 No 1mg pamoate 50 9-17 mg capsule 00:00: 00 propranolol 2019-0 No 1mg 20 mg 9-17 tablet 00:00: 00 bupropion 2019-0 No 1mg HCl SR 150 9-17 mg 00:00: tablet,12 00 hr sustained-r elease mirtazapine 2019-0 No 1mg 45 mg 9-17 tablet 00:00: 00 hydroxyzine 2019-0 No 1mg pamoate 50 9-17 mg capsule 00:00: 00 propranolol 2019-0 No 1mg 20 mg 9-17 tablet 00:00: 00 bupropion 2019-0 No 1mg HCl SR 150 9-17 mg 00:00: tablet,12 00 hr sustained-r elease mirtazapine 2019-0 No 1mg 45 mg 9-17 tablet 00:00: 00 hydroxyzine 2019-0 No 1mg pamoate 50 9-17 mg capsule 00:00: 00 propranolol 2019-0 No 1mg 20 mg 9-17 tablet 00:00: 00 bupropion 2019-0 No 1mg HCl SR 150 9-17 mg 00:00: tablet,12 00 hr sustained-r elease mirtazapine 2019-0 No 1mg 45 mg 9-17 tablet 00:00: 00 hydroxyzine 2019-0 No 1mg pamoate 50 9-17 mg capsule 00:00: 00 hydrOXYzine 2019-0 Yes [id number] 10mg Take 1 [facility] 10 [facility]-13 tablet by [facility] tablet 00:00: mouth [place] 00 every 6 [facility] hours. hydrOXYzine 2019-0 Yes [id number] 10mg Take 1 [facility] 10 mg 9-13 tablet by [facility] tablet 00:00: mouth [place] 00 every 6 [facility] ([facility] hours. hydrOXYzine 2019-0 Yes [id number] 10mg Take 1 [facility] 10 mg 9-13 tablet by [facility] tablet 00:00: mouth [place] 00 every 6 [facility] (six[facility] hours. hydrOXYzine 2019-0 Yes [id number] 10mg Take 1 [facility] 10 mg 9-13 tablet by [facility] tablet 00:00: mouth [place] 00 every 6 [facility] (six[facility] hours. hydrOXYzine 2019-0 Yes [id number] 10mg Take 1 [facility] 10 mg 9-13 tablet by [facility] tablet 00:00: mouth [place] 00 every 6 Medical (six) Branch hours. hydrOXYzine 2019-0 Yes [id number] 10mg Take 1 [facility] 10 mg 9-13 tablet by [facility] tablet 00:00: mouth [place] 00 every 6 [facility] (six) [facility] hours. mirtazapine 2019-0 No 1mg 45 mg 8-05 tablet 00:00: 00 mirtazapine 2019-0 No 1mg 45 mg 8-05 tablet 00:00: 00 mirtazapine 2019-0 No 1mg 45 mg 8-05 tablet 00:00: 00 mirtazapine 2019-0 No 1mg 45 mg 8-05 tablet 00:00: 00 propranolol 2019-0 No 1mg 20 mg 7-15 tablet 00:00: 00 propranolol 2019-0 No 1mg 20 mg 7-15 tablet 00:00: 00 propranolol 2019-0 No 1mg 20 mg 7-15 tablet 00:00: 00 propranolol 2019-0 No 1mg 20 mg 7-15 tablet 00:00: 00 bupropion 2019-0 No 1mg HCl SR 150 7-03 mg 00:00: tablet,12 00 hr sustained-r elease bupropion 2019-0 No 1mg HCl SR 150 7-03 mg 00:00: tablet,12 00 hr sustained-r elease bupropion 2019-0 No 1mg HCl SR 150 7-03 mg 00:00: tablet,12 00 hr sustained-r elease bupropion 2019-0 No 1mg HCl SR 150 7-03 mg [...] pamoate 50 6-11 mg capsule 00:00: 00 fluconazole 2019-0 No 1mg 150 mg 6-11 tablet 00:00: 00 sulfamethox 2019-0 No 1mg azole 800 6-11 mg-trimetho 00:00: prim 160 mg 00 tablet mirtazapine 2019-0 No 1mg 45 mg 6-11 tablet 00:00: 00 trazodone 2019-0 No 12mg 100 mg 6-11 tablet 00:00: 00 hydroxyzine 2019-0 No 1mg pamoate 50 6-11 mg capsule 00:00: 00 fluconazole 2019-0 No 1mg 150 mg 6-11 tablet 00:00: 00 sulfamethox 2019-0 No 1mg azole 800 6-11 mg-trimetho 00:00: prim 160 mg 00 tablet mirtazapine 2019-0 No 1mg 45 mg 6-11 tablet 00:00: 00 trazodone 2019-0 No 12mg 100 mg 6-11 tablet 00:00: 00 hydroxyzine 2019-0 No 1mg pamoate 50 6-11 mg capsule 00:00: 00 fluconazole 2019-0 No 1mg 150 mg 6-11 [...] 12mg 100 mg 6-05 tablet 00:00: 00 bupropion 2019-0 No 1mg HCl SR 150 6-05 mg 00:00: tablet,12 00 hr sustained-r elease propranolol 2019-0 No 1mg 20 mg 6-05 tablet 00:00: 00 trazodone 2019-0 No 12mg 100 mg 6-05 tablet 00:00: 00 bupropion 2019-0 No 1mg HCl SR 150 6-05 mg 00:00: tablet,12 00 hr sustained-r elease propranolol 2019-0 No 1mg 20 mg 6-05 tablet 00:00: 00 trazodone 2019-0 No 12mg 100 mg 6-05 tablet 00:00: 00 bupropion 2019-0 No 1mg HCl [...] 500 mg 2-04 capsule 00:00: 00 lisinopril 2019-0 No 1mg 5 mg tablet 2-04 00:00: 00 metformin 2019-0 No 1mg 1,000 mg 2-04 tablet 00:00: 00 cephalexin 2019-0 No 1mg 500 mg 2-04 capsule 00:00: 00 lisinopril 2019-0 No 1mg 5 mg tablet 2-04 00:00: 00 metformin 2019-0 No 1mg 1,000 mg 2-04 tablet 00:00: 00 cephalexin 2019-0 No 1mg 500 mg 2-04 capsule 00:00: 00 lisinopril 2019-0 No 1mg 5 mg tablet 2- 00:00: 00 metformin 2019-0 No 1mg 1,000 mg 2-04 tablet 00:00: 00 cephalexin 2019-0 No 1mg 500 mg 2-04 capsule 00:00: 00 lisinopril 2018-1 No 1mg 5 mg tablet 08-08 00:00: 00 Zofran 4 mg 2017-1 No 1mg tablet 08-08 00:00: 00 lisinopril 2017-1 No 1mg 5 mg tablet 08-08 00:00: 00 Zofran 4 mg 2017-1 No 1mg tablet 08-08 00:00: 00 lisinopril 2017-1 No 1mg 5 mg tablet 08-08 00:00: 00 Zofran 4 mg 2017-1 No 1mg tablet 08-08 00:00: 00 lisinopril 2017-1 No 1mg 5 mg tablet 08-08 00:00: 00 Zofran 4 mg 2017-1 No 1mg tablet 08-08 00:00: 00 metformin 2018-1 No 1mg 1,000 mg 1-13 tablet 00:00: 00 metformin 2018-1 No 1mg 1,000 mg 1-13 tablet 00:00: 00 metformin 2018-1 No 1mg 1,000 mg 1-13 tablet 00:00: 00 metformin 2018-1 No 1mg 1,000 mg 1-13 tablet 00:00: 00 Lexapro 20 2018-0 No 1mg mg tablet 04-06 00:00: 00 Abilify 5 2018-0 No 1mg mg tablet 04-06 00:00: 00 trazodone 2018-0 No 12mg 100 mg - tablet 00:00: 00 trazodone 2018-0 No 12mg 100 mg - tablet 00:00: 00 Effexor XR 2018-0 No 1mg 75 mg 04-06 capsule,ext 00:00: ended 00 release Lexapro 20 2018-0 No 1mg mg tablet 04-06 00:00: 00 Abilify 5 2018-0 No 1mg mg tablet 04-06 00:00: 00 trazodone 2018-0 No 12mg 100 mg 04-06 tablet 00:00: 00 trazodone 2018-0 No 12mg 100 mg 04-06 tablet 00:00: 00 Effexor XR 2018-0 No 1mg 75 mg 04-06 capsule,ext 00:00: ended 00 release Lexapro 20 2018-0 No 1mg mg tablet 04-06 00:00: 00 Abilify 5 2018-0 No 1mg mg tablet 04-06 00:00: 00 trazodone 2018-0 No 12mg 100 mg 04-06 tablet 00:00: 00 trazodone 2018-0 No 12mg 100 mg 04-06 tablet 00:00: 00 Effexor XR 2018-0 No 1mg 75 mg 04-06 capsule,ext 00:00: ended 00 release Lexapro 20 2018-0 No 1mg mg tablet 04-06 00:00: 00 Abilify 5 2018-0 No 1mg mg tablet 04-06 00:00: 00 trazodone 2018-0 No 12mg 100 mg - tablet 00:00: 00 trazodone 2018-0 No 12mg 100 mg 04-06 tablet 00:00: 00 Effexor XR 2018-0 No 1mg 75 mg 04-06 capsule,ext 00:00: ended 00 release Claritin 10 2018-0 No 1mg mg tablet 03-16 00:00: 00 amoxicillin 2018-0 No 1mg 875 mg 03-16 tablet 00:00: 00 Claritin 10 2018-0 No 1mg mg tablet 03-16 00:00: 00 amoxicillin 2018-0 No 1mg 875 mg -06 tablet 00:00: 00 Claritin 10 2018-0 No 1mg mg tablet 03-16 00:00: 00 amoxicillin 2018-0 No 1mg 875 mg 9-06 tablet 00:00: 00 Claritin 10 2018-0 No 1mg mg tablet 03-16 00:00: 00 amoxicillin 2018-0 No 1mg 875 mg 9-06 tablet 00:00: 00 loratadine 2018-0 Yes 10mg QD Take 10 mg [facility] (CLARITIN) 9-[address] 10 mg 00:00[facility] l loratadine 2018-0 Yes 10mg QD Take 10 mg [facility] (CLARITIN) 9-[address] 10 mg 00:00: [facility] tablet 00 l loratadine 2018-0 Yes 10mg QD Take 10 mg [facility] (CLARITIN) [address] 10 mg 00:00: [facility]. [facility] tablet 00 l loratadine 2018-0 Yes 10mg QD Take 10 mg [facility] (CLARITIN) 03-[address] 10 mg 00:00: [facility]. [facility] tablet 00 l loratadine 2018-0 Yes 10mg QD Take 10 mg [facility] (CLARITIN) 03-[address] 10 mg 00:00: daily. [facility] tablet 00 l Lexapro 20 2018-0 No 15mg mg tablet [...] 12mg 100 mg 8-10 tablet 00:00: 00 Lexapro 20 2018-0 No 1mg mg tablet 8-10 00:00: 00 Abilify 5 2018-0 No 1mg mg tablet 8-10 00:00: 00 trazodone 2018-0 No 12mg 100 mg 8-10 tablet 00:00: 00 Lexapro 20 2018-0 No 1mg mg tablet 8-10 00:00: 00 Abilify 5 2018-0 No 1mg mg tablet 8-10 00:00: 00 trazodone 2018-0 No 12mg 100 mg 8-10 tablet 00:00: 00 Lexapro 20 2018-0 No 1mg mg tablet 8-10 00:00: 00 Abilify 5 2018-0 No 1mg mg tablet 8-10 00:00: 00 trazodone 2018-0 No 12mg 100 mg 8-10 tablet 00:00: 00 metformin 2018-0 No 1mg 1,000 mg 6-28 tablet 00:00: 00 metformin 2018-0 No 1mg 1,000 mg 6-28 tablet 00:00: 00 metformin 2018-0 No 1mg 1,000 mg 6-28 tablet 00:00: 00 metformin 2018-0 No 1mg 1,000 mg 6-28 tablet 00:00: 00 Abilify 5 2018-0 No 1mg mg tablet 6-14 00:00: 00 Lexapro 20 2018-0 No 1mg mg tablet 6-14 00:00: 00 trazodone 2018-0 No 12mg 100 mg 6-14 tablet 00:00: 00 Vistaril 25 2018-0 No 1mg mg capsule 6-14 00:00: 00 Abilify 5 2018-0 No 1mg mg tablet 6-14 00:00: 00 Lexapro 20 2018-0 No 1mg mg tablet 6-14 00:00: 00 trazodone 2018-0 No 12mg 100 mg 6-14 tablet 00:00: 00 Vistaril 25 2018-0 No 1mg mg capsule 6-14 00:00: 00 Abilify 5 2018-0 No 1mg mg tablet 6-14 00:00: 00 Lexapro 20 2018-0 No 1mg mg tablet 6-14 00:00: 00 trazodone 2018-0 No 12mg 100 mg 6-14 tablet 00:00: 00 Vistaril 25 2018-0 No 1mg mg capsule 6-14 00:00: 00 Abilify 5 2018-0 No 1mg [...] No 1mg mg capsule 5-21 00:00: 00 Lexapro 20 2018-0 No 1mg mg tablet 5-21 00:00: 00 Abilify 5 2018-0 No 1mg mg tablet 5-21 00:00: 00 Vistaril 25 2018-0 No 1mg mg capsule 5-21 00:00: 00 Lexapro 20 2018-0 No 1mg mg tablet 5-21 00:00: 00 Abilify 5 2018-0 No 1mg mg tablet 5-21 00:00: 00 Vistaril 25 2018-0 No 1mg mg capsule 5-21 00:00: 00 Lexapro 20 2018-0 No 1mg [...] No 1mg mg capsule 4-05 00:00: 00 Abilify 5 2018-0 No 1mg mg tablet 4-05 00:00: 00 Lexapro 20 2018-0 No 1mg mg tablet 4-05 00:00: 00 trazodone 2018-0 No 12mg 100 mg 4-05 tablet 00:00: 00 Vistaril 25 2018-0 No 1mg mg capsule 4-05 00:00: 00 Abilify 5 2018-0 No 1mg mg tablet 4-05 00:00: 00 Lexapro 20 2018-0 No 1mg mg tablet 4-05 00:00: 00 trazodone 2018-0 No 12mg 100 mg 4-05 tablet 00:00: 00 Vistaril 25 2018-0 No 1mg mg capsule 4-05 00:00: 00 Abilify 5 2018-0 No 1mg mg tablet 4-05 00:00: 00 Lexapro 20 2018-0 No 1mg mg tablet 4-05 00:00: 00 trazodone 2018-0 No 12mg 100 mg 4-05 tablet 00:00: 00 Vistaril 25 2018-0 No 1mg mg capsule 4-05 00:00: 00 metformin 2018-0 No 1mg 1,000 mg 3-22 tablet 00:00: 00 metformin 2018-0 No 1mg 1,000 mg 3-22 tablet 00:00: 00 metformin 2018-0 No 1mg 1,000 mg 3-22 tablet 00:00: 00 metformin 2018-0 No 1mg 1,000 mg 3-22 tablet 00:00: 00 loratadine 2018-0 No 1mg 10 mg 3-05 tablet 00:00: 00 promethazin 2018-0 No 10mg/5 e-DM 6.25 3-05 mL mg-15 mg/5 00:00: mL syrup 00 loratadine 2018-0 No 1mg 10 mg 3-05 tablet 00:00: 00 promethazin 2018-0 No 10mg/5 e-DM 6.25 3-05 mL mg-15 mg/5 00:00: mL syrup 00 loratadine 2018-0 No 1mg 10 mg 3-05 tablet 00:00: 00 promethazin 2018-0 No 10mg/5 e-DM 6.25 3-05 mL mg-15 mg/5 00:00: mL syrup 00 loratadine 2018-0 No 1mg 10 mg 3-05 tablet 00:00: 00 promethazin 2018-0 No 10mg/5 e-DM 6.25 3-05 mL mg-15 mg/5 00:00: mL syrup 00 trazodone 2018-0 No 12mg 100 mg 1-18 tablet 00:00: 00 trazodone 2018-0 No 12mg 100 mg 1-18 tablet 00:00: 00 trazodone 2018-0 No 12mg 100 mg 1-18 tablet 00:00: 00 trazodone 2018-0 No 12mg 100 mg 1-18 tablet 00:00: 00 Abilify 5 2018-0 No 1mg mg tablet 1-11 00:00: 00 Lexapro 20 2018-0 No 1mg mg tablet 1-11 00:00: 00 Vistaril 25 2018-0 No 1mg mg capsule 1- 00:00: 00 Abilify 5 2018-0 No 1mg mg tablet 1- 00:00: 00 Lexapro 20 2018-0 No 1mg mg tablet 1- 00:00: 00 Vistaril 25 2018-0 No 1mg mg capsule 1- 00:00: 00 Abilify 5 2018-0 No 1mg mg tablet 1- 00:00: 00 Lexapro 20 2018-0 No 1mg mg tablet 1- 00:00: 00 Vistaril 25 2018-0 No 1mg mg capsule 1- 00:00: 00 Abilify 5 2018-0 No 1mg mg tablet - 00:00: 00 Lexapro 20 2018-0 No 1mg mg tablet 1- 00:00: 00 Vistaril 25 2018-0 No 1mg mg capsule 1- 00:00: 00 Abilify 5 2018-0 No 1mg mg tablet - 00:00: 00 Abilify 5 2018-0 No 1mg mg tablet - 00:00: 00 Lexapro 20 2018-0 No 1mg mg tablet 1- 00:00: 00 Lexapro 20 2018-0 No 1mg mg tablet - 00:00: 00 Abilify 5 2018-0 No 1mg mg tablet - 00:00: 00 Lexapro 20 2018-0 No 1mg mg tablet 1- 00:00: 00 Abilify 5 2018-0 No 1mg mg tablet 1-08 00:00: 00 Lexapro 20 2018-0 No 1mg mg tablet 07-18 00:00: 00 promethazin 2016-1 No 10mg/5 e-DM 6.25 2-04 mL mg-15 mg/5 00:00: mL syrup 00 prednisone 2016- No 1mg 20 mg 2-04 tablet 00:00: 00 loratadine 2017- No 1mg 10 mg 2-04 tablet 00:00: 00 metformin 2016- No 1mg 1,000 mg 2-04 tablet 00:00: 00 promethazin 2016- No 10mg/5 e-DM 6.25 2-04 mL mg-15 mg/5 00:00: mL syrup 00 prednisone 2016- No 1mg 20 mg 2-04 tablet 00:00: 00 loratadine 2016-1 No 1mg 10 mg 2-04 tablet 00:00: 00 metformin 2016- No 1mg 1,000 mg 2-04 tablet 00:00: 00 promethazin 2016- No 10mg/5 e-DM 6.25 2-04 mL mg-15 mg/5 00:00: mL syrup 00 prednisone 2016- No 1mg 20 mg 2-04 tablet 00:00: 00 loratadine 2016- No 1mg 10 mg 2-04 tablet 00:00: 00 metformin 2016-1 No 1mg 1,000 mg 2-04 tablet 00:00: 00 promethazin 2016- No 10mg/5 e-DM 6.25 2-04 mL mg-15 mg/5 00:00: mL syrup prednisone 2016- No 1mg 20 mg 2-04 tablet 00:00: 00 loratadine 2017-1 No 1mg 10 mg 2-04 tablet 00:00: 00 metformin 2017-1 No 1mg 1,000 mg 2-04 tablet 00:00: 00 Abilify 5 2017-0 No 1mg mg tablet 04-07 00:00: 00 Lexapro 20 2017-0 No 1mg mg tablet 04-07 00:00: 00 buspirone 2017-0 No 1mg 15 mg 04-07 tablet 00:00: 00 trazodone 2017-0 No 2mg 100 mg 04-07 tablet 00:00: 00 Abilify 5 2016-0 No 1mg mg tablet 04-07 00:00: 00 Lexapro 20 2017-0 No 1mg mg tablet 04-07 00:00: 00 buspirone 2017-0 No 1mg 15 mg -28 tablet 00:00: 00 trazodone 2017-0 No 2mg 100 mg -28 tablet 00:00: 00 Abilify 5 2017-0 No 1mg mg tablet 04-07 00:00: 00 Lexapro 20 2017-0 No 1mg mg tablet 04-07 00:00: 00 buspirone 2017-0 No 1mg 15 mg - tablet 00:00: 00 trazodone 2017-0 No 2mg 100 mg - tablet 00:00: 00 Abilify 5 2017-0 No 1mg mg tablet 04-07 00:00: 00 Lexapro 20 2017-0 No 1mg mg tablet 04-07 00:00: 00 buspirone 2017-0 No 1mg 15 mg - tablet 00:00: 00 trazodone 2017-0 No 2mg 100 mg 04-07 tablet 00:00: 00 buspirone 2017-0 No 1mg 15 mg - tablet 00:00: 00 trazodone 2017-0 No 2mg 100 mg - tablet 00:00: 00 Abilify 5 2016-0 No 1mg mg tablet 03-24 00:00: 00 Lexapro 20 2017-0 No 1mg mg tablet 03-24 00:00: 00 buspirone 2017-0 No 1mg 15 mg -14 tablet 00:00: 00 trazodone 2017-0 No 2mg 100 mg -14 tablet 00:00: 00 Abilify 5 2016-0 No 1mg mg tablet 03-24 00:00: 00 Lexapro 20 2017-0 No 1mg mg tablet 03-24 00:00: 00 buspirone 2017-0 No 1mg 15 mg 9-14 tablet 00:00: 00 trazodone 2017-0 No 2mg 100 mg 9-14 tablet 00:00: 00 Abilify 5 2017-0 No 1mg mg tablet 03-24 00:00: 00 Lexapro 20 2017-0 No 1mg mg tablet 03-24 00:00: 00 buspirone 2017-0 No 1mg 15 mg 9-14 tablet 00:00: 00 trazodone 2017-0 No 2mg 100 mg 9-14 tablet 00:00: 00 Abilify 5 2017-0 No 1mg mg tablet 914 00:00: 00 Lexapro 20 2017-0 No 1mg mg tablet 914 00:00: 00 Abilify 5 2017-0 No 1mg mg tablet 7 00:00: 00 Lexapro 20 2017-0 No 1mg mg tablet 7 00:00: 00 buspirone 2017-0 No 1mg 15 mg 7-27 tablet 00:00: 00 trazodone 2017-0 No 2mg 100 mg 7-27 tablet 00:00: 00 Abilify 5 2016-0 No 1mg mg tablet 02-03 00:00: 00 Lexapro 20 2017-0 No 1mg mg tablet 02-03 00:00: 00 buspirone 2017-0 No 1mg 15 mg 7-27 tablet 00:00: 00 trazodone 2017-0 No 2mg 100 mg 7-27 tablet 00:00: 00 Abilify 5 2016-0 No 1mg mg tablet 02-03 00:00: 00 Lexapro 20 2017-0 No 1mg mg tablet 02-03 00:00: 00 buspirone 2017-0 No 1mg 15 mg 7-27 tablet 00:00: 00 trazodone 2017-0 No 2mg 100 mg 7-27 tablet 00:00: 00 Abilify 5 2016-0 No 1mg mg tablet 02-03 00:00: 00 Lexapro 20 2017-0 No 1mg mg tablet 02-03 00:00: 00 buspirone 2017-0 No 1mg 15 mg 7-27 tablet 00:00: 00 trazodone 2017-0 No 2mg 100 mg 7-27 tablet 00:00: 00 metformin 2017-0 No 1mg 1,000 mg 7-17 tablet 00:00: 00 metformin 2017-0 No 1mg 1,000 mg 7-17 tablet 00:00: 00 metformin 2017-0 No 1mg 1,000 mg 7-17 tablet 00:00: 00 metformin 2017-0 No 1mg 1,000 mg 7-17 tablet 00:00: 00 Abilify 5 2017-0 No 1mg mg tablet 12-30 00:00: 00 Lexapro 20 2017-0 No 1mg mg tablet 6-22 00:00: 00 buspirone 2017-0 No 1mg 15 mg 6-22 tablet 00:00: 00 trazodone 2017-0 No 2mg 100 mg 6-22 tablet 00:00: 00 Abilify 5 2017-0 No 1mg mg tablet 6-22 00:00: 00 Lexapro 20 2017-0 No 1mg mg tablet 6-22 00:00: 00 buspirone 2017-0 No 1mg 15 mg 6-22 tablet 00:00: 00 trazodone 2017-0 No 2mg 100 mg 6-22 tablet 00:00: 00 Abilify 5 2017-0 No 1mg mg tablet 6-22 00:00: 00 Lexapro 20 2017-0 No 1mg mg tablet 6-22 00:00: 00 buspirone 2017-0 No 1mg 15 mg 6-22 tablet 00:00: 00 trazodone 2017-0 No 2mg 100 mg 6-22 tablet 00:00: 00 Abilify 5 2017-0 No 1mg mg tablet 6-22 00:00: 00 Lexapro 20 2017-0 No 1mg mg tablet 6-22 00:00: 00 buspirone 2017-0 No 1mg 15 mg 6-22 tablet 00:00: 00 trazodone 2017-0 No 2mg 100 mg 6-22 tablet 00:00: 00 Lexapro 20 2017-0 No 15mg mg tablet 5-18 00:00: 00 Abilify 5 2017-0 No 1mg mg tablet 5-18 00:00: 00 buspirone 2017-0 No 1mg 10 mg 5-18 tablet 00:00: 00 trazodone 2017-0 No 1mg 150 mg 5-18 tablet 00:00: 00 Lexapro 20 2017-0 No 15mg mg tablet 5-18 00:00: 00 Abilify 5 2017-0 No 1mg mg tablet 5-18 00:00: 00 buspirone 2017-0 No 1mg 10 mg 5-18 tablet 00:00: 00 trazodone 2017-0 No 1mg 150 mg 5-18 tablet 00:00: 00 Lexapro 20 2017-0 No 15mg mg tablet 5-18 00:00: 00 Abilify 5 2017-0 No 1mg mg tablet 5-18 00:00: 00 buspirone 2017-0 No 1mg 10 mg 5-18 tablet 00:00: 00 trazodone 2017-0 No 1mg 150 mg 5-18 tablet 00:00: 00 Lexapro 20 2017-0 No [...] 1mg 1,000 mg 5-01 tablet 00:00: 00 metformin 2017-0 No 1mg 1,000 mg 5-01 tablet 00:00: 00 metformin 2017-0 No 1mg 1,000 mg 5-01 tablet 00:00: 00 metformin 2017-0 No 1mg 1,000 mg 5-01 tablet 00:00: 00 Abilify 5 2017-0 No 1mg mg tablet 4-11 00:00: 00 Lexapro 20 2017-0 No 15mg mg tablet 4-11 00:00: 00 trazodone 2017-0 No 1mg 150 mg 4-11 tablet 00:00: 00 Abilify 5 2017-0 No 1mg mg tablet 4-11 00:00: 00 Lexapro 20 2017-0 No 15mg mg tablet 4-11 00:00: 00 trazodone 2017-0 No 1mg 150 mg 4-11 tablet 00:00: 00 Abilify 5 2017-0 No 1mg mg tablet 4-11 00:00: 00 Lexapro 20 2017-0 No 15mg mg tablet 4-11 00:00: 00 trazodone 2017-0 No 1mg 150 mg 4-11 tablet 00:00: 00 Abilify 5 2017-0 No [...] 1mg 150 mg 1-12 tablet 00:00: 00 Lexapro 20 2017-0 No 15mg mg tablet 1-12 00:00: 00 Abilify 5 2017-0 No 1mg mg tablet 1-12 00:00: 00 trazodone 2017-0 No 1mg 150 mg 1-12 tablet 00:00: 00 Lexapro 20 2017-0 No 15mg mg tablet 1-12 00:00: 00 Abilify 5 2017-0 No 1mg mg tablet 1-12 00:00: 00 trazodone 2017-0 No 1mg 150 mg 1-12 tablet 00:00: 00 Lexapro 20 2017-0 No 15mg mg tablet 1-12 00:00: 00 Abilify 5 2016-0 No 1mg mg tablet 1-12 00:00: 00 trazodone 2017-0 No 1mg 150 mg 1-12 tablet 00:00: 00 Novolin R 2017-0 No 1unit/m 100 unit/mL 1-05 L injection 00:00: solution 00 Augmentin 2017-0 No 1mg 500 mg-125 1-05 mg tablet 00:00: 00 Novolin R 2017-0 No 1unit/m 100 unit/mL 1-05 L injection 00:00: solution 00 Augmentin 2017-0 No 1mg 500 mg-125 1-05 mg tablet 00:00: 00 Novolin R 2017-0 No 1unit/m 100 unit/mL 1-05 L injection 00:00: solution 00 Augmentin 2017-0 No 1mg 500 mg-125 1-05 mg tablet 00:00: 00 Novolin R 2017-0 No 1unit/m 100 unit/mL 1-05 L injection 00:00: solution 00 Augmentin 2017-0 No 1mg 500 mg-125 1-05 mg tablet 00:00: 00 Abilify 5 2015-1 No 1mg mg tablet 2-08 00:00: 00 Abilify 5 2015- No 1mg mg tablet 2-08 00:00: 00 Lexapro 20 2015-1 No 1mg mg tablet 2-08 00:00: 00 trazodone 2015-1 No 1mg 150 mg 2-08 tablet 00:00: 00 hydroxyzine 2015-1 No 12mg HCl 25 mg 2-08 tablet 00:00: 00 Abilify 5 2015-1 No 1mg mg tablet 2-08 00:00: 00 Abilify 5 2015-1 No 1mg mg tablet 2-08 00:00: 00 Lexapro 20 2015-1 No 1mg mg tablet 2-08 00:00: 00 trazodone 2015-1 No 1mg 150 mg 2-08 tablet 00:00: 00 hydroxyzine 2015-07 No 12mg HCl 25 mg 2-08 tablet 00:00: 00 Abilify 5 2015-07 No 1mg mg tablet 2-08 00:00: 00 Abilify 5 2015-07 No 1mg mg tablet 2-08 00:00: 00 Lexapro 20 2015-07 No 1mg mg tablet 2-08 00:00: 00 trazodone 2015-07 No 1mg 150 mg 2-08 tablet 00:00: 00 hydroxyzine 2015-07 No 12mg HCl 25 mg 2-08 tablet 00:00: 00 Abilify 5 2015-07 No 1mg mg tablet 2-08 00:00: 00 Abilify 5 2015-07 No 1mg mg tablet 2-08 00:00: 00 Lexapro 20 2015-07 No 1mg mg tablet 2-08 00:00: 00 trazodone 2015-07 No 1mg 150 mg 2-08 tablet 00:00: 00 hydroxyzine 2015-07 No 12mg HCl 25 mg 2-08 tablet 00:00: 00 trazodone 2015-07 No 1mg 150 mg 2-06 tablet 00:00: 00 trazodone 2015-07 No 1mg 150 mg 2-06 tablet 00:00: 00 trazodone 2015-07 No 1mg 150 mg 2-06 tablet 00:00: 00 trazodone 2015-07 No 1mg 150 mg 2-06 tablet 00:00: 00 Lexapro 20 2015-07 No 1mg mg tablet 1-03 00:00: 00 trazodone 2015-07 No 1mg 150 mg 1-03 tablet 00:00: 00 hydroxyzine 2015-07 No 12mg HCl 25 mg 1-03 tablet 00:00: 00 Lexapro 20 2015-07 No 1mg mg tablet 1-03 00:00: 00 trazodone 2015-07 No 1mg 150 mg 1-03 tablet 00:00: 00 hydroxyzine 2015-07 No 12mg HCl 25 mg 1-03 tablet 00:00: 00 Lexapro 20 2015-07 No 1mg mg tablet 1- 00:00: 00 trazodone 2015-07 No 1mg 150 mg 1-03 tablet 00:00: 00 hydroxyzine 2015-07 No 12mg HCl 25 mg 1-03 tablet 00:00: 00 Lexapro 20 2015-1 No 1mg mg tablet 1- 00:00: 00 trazodone 2015-1 No 1mg 150 mg 1-03 tablet 00:00: 00 hydroxyzine 2015-1 No 12mg HCl 25 mg 1-03 tablet 00:00: 00 Lexapro 20 2015-1 No 1mg mg tablet 0-11 00:00: 00 trazodone 2015-1 No 51mg 100 mg 0-11 tablet 00:00: 00 Lexapro 20 2015-1 No 1mg mg tablet 0-11 00:00: 00 trazodone 2015-1 No 51mg 100 mg 0-11 tablet 00:00: 00 Lexapro 20 2015-1 No 1mg mg tablet 0-11 00:00: 00 trazodone 2015-1 No 51mg 100 mg 0-11 tablet 00:00: 00 Lexapro 20 2015-1 No 1mg mg tablet 0-11 00:00: 00 trazodone 2015-1 No 51mg 100 mg 0-11 tablet 00:00: 00 paroxetine 2016-0 No 1mg 20 mg 9-26 tablet 00:00: 00 paroxetine 2016-0 No 1mg 20 mg 9-26 tablet 00:00: 00 paroxetine 2016-0 No 1mg 20 mg 9-26 tablet 00:00: 00 paroxetine 2016-0 No 1mg 20 mg 9-26 tablet 00:00: 00 simvastatin 2016-0 No 1mg 20 mg 9-09 tablet 00:00: 00 metformin 2016-0 No 1mg 1,000 mg 9-09 tablet 00:00: 00 buspirone 2016-0 No 1mg 7.5 mg 9-09 tablet 00:00: 00 hydroxyzine 2016-0 No 12mg HCl 25 mg 9-09 tablet 00:00: 00 simvastatin 2016-0 No 1mg 20 mg 9-09 tablet 00:00: 00 metformin 2016-0 No 1mg 1,000 mg 9-09 tablet 00:00: 00 buspirone 2016-0 No 1mg 7.5 mg 9-09 tablet 00:00: 00 hydroxyzine 2015-0 No 12mg HCl 25 mg 9-09 tablet 00:00: 00 simvastatin 2016-0 No 1mg 20 mg 9-09 tablet 00:00: 00 metformin 2016-0 No 1mg 1,000 mg 9-09 tablet 00:00: 00 buspirone 2016-0 No 1mg 7.5 mg 9-09 tablet 00:00: 00 hydroxyzine 2016-0 No 12mg HCl 25 mg 9-09 tablet 00:00: 00 simvastatin 2016-0 No 1mg [...] 1mg 500 mg 7-27 capsule 00:00: 00 hydroxyzine 2016-0 No 12mg HCl 25 mg 7-27 tablet 00:00: 00 amoxicillin 2016-0 No 1mg 500 mg 7-27 capsule 00:00: 00 hydroxyzine 2016-0 No 12mg HCl 25 mg 7-27 tablet 00:00: 00 amoxicillin 2016-0 No 1mg 500 mg 7-27 capsule 00:00: 00 hydroxyzine 2016-0 No 12mg HCl 25 mg 7-27 tablet 00:00: 00 amoxicillin 2016-0 No 1mg 500 mg 7-27 capsule 00:00: 00 Voltaren 1 2016-0 No 1% % topical 6-11 gel 00:00: 00 cyclobenzap 2016-0 No 1mg rine 10 mg 6-11 tablet 00:00: 00 hydroxyzine 2016-0 No 12mg HCl 25 mg 6-11 tablet 00:00: 00 Voltaren 1 2016-0 No 1% % topical 6-11 gel 00:00: 00 cyclobenzap 2016-0 No 1mg rine 10 mg 6-11 tablet 00:00: 00 hydroxyzine 2016-0 No 12mg HCl 25 mg 6-11 tablet 00:00: 00 Voltaren 1 2016-0 No 1% % topical 6-11 gel 00:00: 00 cyclobenzap 2016-0 No 1mg rine 10 mg 6-11 tablet 00:00: 00 hydroxyzine 2016-0 No 12mg HCl 25 mg 6-11 tablet 00:00: 00 Voltaren 1 2016-0 No 1% % topical 6-11 gel 00:00: 00 cyclobenzap 2016-0 No 1mg rine 10 mg 6-11 tablet 00:00: 00 hydroxyzine 2016-0 No 12mg HCl 25 mg 6-11 tablet 00:00: 00 amoxicillin 2016-0 No 1mg 500 mg 6-02 tablet 00:00: 00 amoxicillin 2016-0 No 1mg 500 mg 6-02 tablet 00:00: 00 amoxicillin 2016-0 No 1mg 500 mg 6-02 tablet 00:00: 00 amoxicillin 2016-0 No 1mg 500 mg 6-02 tablet 00:00: 00 Voltaren 1 2016-0 No 1% % topical 5-13 gel 00:00: 00 cyclobenzap 2016-0 No 1mg rine 10 mg 5-13 tablet 00:00: 00 Voltaren 1 2016-0 No 1% % topical 5-13 gel 00:00: 00 cyclobenzap 2016-0 No 1mg rine 10 mg 5-13 tablet 00:00: 00 Voltaren 1 2016-0 No 1% % topical 5-13 gel 00:00: 00 cyclobenzap 2016-0 No 1mg rine 10 mg 5-13 tablet 00:00: 00 Voltaren 1 2016-0 No [...] 1mg 20 mg 5-07 tablet 00:00: 00 nystatin 2016-0 No 1unit/g 100,000 5-07 robert unit/gram 00:00: topical 00 powder lisinopril 2016-0 No 1mg 5 mg tablet 5-07 00:00: 00 metformin 2016-0 No 1mg 1,000 mg 5-07 tablet 00:00: 00 simvastatin 2016-0 No 1mg 20 mg 5-07 tablet 00:00: 00 nystatin 2016-0 No 1unit/g 100,000 5-07 robert unit/gram 00:00: topical 00 powder lisinopril 2016-0 No 1mg 5 mg tablet 507 00:00: 00 metformin 2016-0 No 1mg 1,000 mg 5-07 tablet 00:00: 00 simvastatin 2016-0 No 1mg 20 mg 5-07 tablet 00:00: 00 nystatin 2016-0 No 1unit/g 100,000 5-07 robert unit/gram 00:00: topical 00 powder lisinopril 2016-0 No 1mg 5 mg tablet 5 00:00: 00 metformin 2016-0 No 1mg 1,000 mg 5-07 tablet 00:00: 00 simvastatin 2016-0 No 1mg 20 mg 5-07 tablet 00:00: 00 Vistaril 50 2016-0 No 1mg mg capsule 4 00:00: 00 Vistaril 50 2016-0 No 1mg mg capsule 4 00:00: 00 Vistaril 50 2016-0 No 1mg mg capsule 4 00:00: 00 Vistaril 50 2016-0 No 1mg mg capsule 4-08 00:00: 00 lisinopril 2016-0 No 1mg 5 mg tablet 3-19 00:00: 00 metformin 2016-0 No 1mg 1,000 mg 3-19 tablet 00:00: 00 lisinopril 2016-0 No 1mg 5 mg tablet 3-19 00:00: 00 metformin 2016-0 No 1mg 1,000 mg 3-19 tablet 00:00: 00 lisinopril 2016-0 No 1mg 5 mg tablet 3-19 00:00: 00 metformin 2016-0 No 1mg 1,000 mg 3-19 tablet 00:00: 00 lisinopril 2016-0 No 1mg 5 mg tablet 3-19 00:00: 00 metformin 2016-0 No 1mg 1,000 mg 3-19 tablet 00:00: 00 Effexor XR 2016-0 No 1mg 150 mg 1-28 capsule,ext 00:00: ended 00 release doxepin 25 2016-0 No 13mg mg capsule 08-07 00:00: 00 Effexor XR 2016-0 No 1mg 150 mg 1-28 capsule,ext 00:00: ended 00 release doxepin 25 2016-0 No 13mg mg capsule 08-07 00:00: 00 Effexor XR 2016-0 No 1mg 150 mg 1-28 capsule,ext 00:00: ended 00 release doxepin 25 2015-0 No 13mg mg capsule 08-07 00:00: 00 Effexor XR 2015-0 No 1mg 150 mg 08-07 capsule,ext 00:00: ended 00 release doxepin 25 2015-0 No 13mg mg capsule 08-07 00:00: 00 doxepin 10 2016-0 No 12mg mg capsule 07-24 00:00: 00 Effexor XR 2016-0 No mg 75 mg -14 capsule,ext 00:00: ended 00 release doxepin 10 2015-0 No 12mg mg capsule 07-24 00:00: 00 Effexor XR 2016-0 No mg 75 mg -14 capsule,ext 00:00: ended 00 release doxepin 10 2015-0 No 12mg mg capsule 07-24 00:00: 00 Effexor XR 2016-0 No mg 75 mg -14 capsule,ext 00:00: ended 00 release doxepin 10 2015-0 No 12mg mg capsule 07-24 00:00: 00 Effexor XR 2016-0 No mg 75 mg 14 capsule,ext 00:00: ended 00 release glimepiride 2016-0 No 1mg 4 mg tablet 07-14 00:00: 00 metformin 2016-0 No 1mg 1,000 mg 1-04 tablet 00:00: 00 simvastatin 2016-0 No 1mg 20 mg 1-04 tablet 00:00: 00 simvastatin 2016-0 No 1mg 20 mg 1-04 tablet 00:00: 00 glimepiride 2016-0 No 1mg 4 mg tablet 04 00:00: 00 metformin 2016-0 No 1mg 1,000 mg 1-04 tablet 00:00: 00 simvastatin 2016-0 No 1mg 20 mg 1-04 tablet 00:00: 00 simvastatin 2016-0 No 1mg 20 mg 1-04 tablet 00:00: 00 glimepiride 2016-0 No 1mg 4 mg tablet 04 00:00: 00 metformin 2016-0 No 1mg 1,000 mg 1-04 tablet 00:00: 00 simvastatin 2016-0 No 1mg 20 mg 1-04 tablet 00:00: 00 simvastatin 2016-0 No 1mg 20 mg 1-04 tablet 00:00: 00 glimepiride 2016-0 No 1mg 4 mg tablet 1-04 00:00: 00 metformin 2016-0 No 1mg 1,000 mg 1-04 tablet 00:00: 00 simvastatin 2016-0 No 1mg 20 mg 1-04 tablet 00:00: 00 simvastatin 2016-0 No 1mg 20 mg 1-04 tablet 00:00: 00 Vistaril 50 2014-1 No 1mg mg capsule 2-14 00:00: 00 Vistaril 50 2014-1 No 1mg mg capsule 2-14 00:00: 00 Vistaril 50 2014-1 No 1mg mg capsule 2-14 00:00: 00 Vistaril 50 2014-1 No 1mg mg capsule 2-14 00:00: 00 Paxil 20 mg 2015-1 No 1mg tablet - 00:00: 00 Paxil 20 mg 2015-1 No 1mg tablet 08-02 00:00: 00 Paxil 20 mg 2015-1 No 1mg tablet 08-02 00:00: 00 Paxil 20 mg 2015-1 No 1mg tablet 08-02 00:00: 00 Paxil 20 mg 2015-0 No 1mg tablet 03-14 00:00: 00 Paxil 20 mg 2015-0 No 1mg tablet 03-14 00:00: 00 Paxil 20 mg 2015-0 No 1mg tablet 03-14 00:00: 00 Paxil 20 mg 2015-0 No 1mg tablet 03-14 00:00: 00 Paxil 20 mg 2015-0 No 1mg tablet 03-14 00:00: 00 Paxil 20 mg 2015-0 No 1mg tablet 03-14 00:00: 00 Paxil 20 mg 2015-0 No 1mg tablet 03-14 00:00: 00 Paxil 20 mg 2015-0 No 1mg tablet 03-14 00:00: 00 hydrocodone 2015-0 No mg 7.5 8-15 mg-acetamin 00:00: ophen 325 00 mg tablet hydrocodone 2015-0 No mg 7.5 8-15 mg-acetamin 00:00: ophen 325 00 mg tablet hydrocodone 2015-0 No mg 7.5 8-15 mg-acetamin 00:00: ophen 325 00 mg tablet hydrocodone 2015-0 No mg 7.5 8-15 mg-acetamin 00:00: ophen 325 00 mg tablet lisinopril 2015-0 No 1mg 5 mg tablet 01-15 00:00: 00 glimepiride 2015-0 No 1mg 4 mg tablet 7 00:00: 00 metformin 2015-0 No 1mg 1,000 mg 7- tablet 00:00: 00 lisinopril 2015-0 No 1mg 5 mg tablet 7 00:00: 00 glimepiride 2015-0 No 1mg 4 mg tablet 7 00:00: 00 metformin 2015-0 No 1mg 1,000 mg 7- tablet 00:00: 00 lisinopril 2015-0 No 1mg 5 mg tablet 7 00:00: 00 glimepiride 2015-0 No 1mg 4 mg tablet 7 00:00: 00 metformin 2015-0 No 1mg 1,000 mg 7- tablet 00:00: 00 lisinopril 2015-0 No 1mg 5 mg tablet 01-15 00:00: 00 glimepiride 2015-0 No 1mg 4 mg tablet 01-15 00:00: 00 metformin 2015-0 No 1mg 1,000 mg 7- tablet 00:00: 00 Januvia 100 2015-0 No 1mg mg tablet 5- 00:00: 00 Januvia 100 2015-0 No 1mg mg tablet 5- 00:00: 00 Januvia 100 2015-0 No 1mg mg tablet 5- 00:00: 00 Januvia 100 2015-0 No 1mg mg tablet 5 00:00: 00 paroxetine 2015-0 No 1mg 10 mg 3-17 tablet 00:00: 00 metformin 2015-0 No 1mg 1,000 mg 3-17 tablet 00:00: 00 glimepiride 2015-0 No 1mg 4 mg tablet 3-17 00:00: 00 fluconazole 2015-0 No 1mg 150 mg 3-17 tablet 00:00: 00 lisinopril 2015-0 No 1mg 5 mg tablet 3-17 00:00: 00 paroxetine 2015-0 No 1mg 10 mg 3-17 tablet 00:00: 00 metformin 2015-0 No 1mg 1,000 mg 3-17 tablet 00:00: 00 glimepiride 2015-0 No 1mg 4 mg tablet 3-17 00:00: 00 fluconazole 2015-0 No 1mg 150 mg 3-17 tablet 00:00: 00 lisinopril 2015-0 No 1mg 5 mg tablet 3-17 00:00: 00 paroxetine 2015-0 No 1mg 10 mg 3-17 tablet 00:00: 00 metformin 2015-0 No 1mg 1,000 mg 3-17 tablet 00:00: 00 glimepiride 2015-0 No 1mg 4 mg tablet 317 00:00: 00 fluconazole 2015-0 No 1mg 150 mg 3-17 tablet 00:00: 00 lisinopril 2015-0 No 1mg 5 mg tablet 3-17 00:00: 00 lisinopril 2015-0 No 1mg 5 mg tablet 3-17 00:00: 00 paroxetine 2015-0 No 1mg 10 mg 3-17 tablet 00:00: 00 metformin 2015-0 No 1mg 1,000 mg 3-17 tablet 00:00: 00 glimepiride 2015-0 No 1mg 4 mg tablet 09-24 00:00: 00 fluconazole 2015-0 No 1mg 150 mg 3-17 tablet 00:00: 00 lisinopril 2015-0 No 1mg 5 mg tablet 08-07 00:00: 00 metformin 2015-0 No 1mg 1,000 mg -28 tablet 00:00: 00 glimepiride 2014-0 No 1mg 4 mg tablet 08-07 00:00: 00 metformin 2015-0 No 1mg 1,000 mg -28 tablet 00:00: 00 Vistaril 50 2014-0 No 1mg mg capsule 08-07 00:00: 00 Vistaril 50 2014-0 No 1mg mg capsule 08-07 00:00: 00 lisinopril 2014-0 No 1mg 5 mg tablet 08-07 00:00: 00 metformin 2014-0 No 1mg 1,000 mg -28 tablet 00:00: 00 glimepiride 2014-0 No 1mg 4 mg tablet 08-07 00:00: 00 metformin 2015-0 No 1mg 1,000 mg -28 tablet 00:00: 00 Vistaril 50 2014-0 No 1mg mg capsule 08-07 00:00: 00 Vistaril 50 2014-0 No 1mg mg capsule 08-07 00:00: 00 lisinopril 2014-0 No 1mg 5 mg tablet 08-07 00:00: 00 metformin 2014-0 No 1mg 1,000 mg -28 tablet 00:00: 00 glimepiride 2014-0 No 1mg 4 mg tablet 08-07 00:00: 00 metformin 2014-0 No 1mg 1,000 mg 08-07 tablet 00:00: 00 Vistaril 50 2014-0 No 1mg mg capsule 08-07 00:00: 00 Vistaril 50 0 No 1mg mg capsule 08-07 00:00: 00 lisinopril 2014-0 No 1mg 5 mg tablet 08-07 00:00: 00 metformin 2014-0 No 1mg 1,000 mg 08-07 tablet 00:00: 00 glimepiride 0 No 1mg 4 mg tablet 08-07 00:00: 00 metformin 2014-0 No 1mg 1,000 mg 08-07 tablet 00:00: 00 Vistaril 50 0 No 1mg mg capsule 08-07 00:00: 00 Vistaril 50 0 No 1mg mg capsule 08-07 00:00: 00 Lancets & 2013- Yes Univers Blood 2-14 ity of Glucose 00:00: [place] Strips ( Medical TOUCH Branch COMBO) [facility] Lancets & 2012-07 Yes Univers Blood 2-14 ity of Glucose 00:00: [place] Strips ( Medical TOUCH [facility] COMBO) [facility] & 2012-07 Yes Univers Blood 2-14 ity of Glucose 00:00: [place] Strips ( Medical TOUCH Branch COMBO) [facility] & 2012-07 Yes Univers Blood 2-14 ity of Glucose 00:00: [place] Strips ( Medical TOUCH Branch COMBO) [facility] & 2012- Yes Univers Blood 2-14 ity of Glucose 00:00: [place] Strips ( Medical TOUCH Branch COMBO) [facility] & 2012- Yes Univers Blood 2-14 ity of Glucose 00:00: [place] Strips ( Medical TOUCH Branch COMBO) [facility] Blood-Gluco Yes Univer s se Meter 6-05 ity of (BLOOD 00:00: [place] GLUCOSE 00 Medical MONITORING) Branch Kit Blood-Gluco Yes Univer s se Meter 6-05 ity of (BLOOD 00:00: [place] GLUCOSE 00 Medical MONITORING) Branch Kit Blood-Gluco Yes Univer s se Meter 6-05 ity of (BLOOD 00:00: [place] GLUCOSE 00 Medical MONITORING) Branch Kit Blood-Gluco 2012- Yes Univer s se Meter 6-05 ity of (BLOOD 00:00: [place] GLUCOSE 00 Medical MONITORING) Branch Kit Blood-Gluco 2012-0 Yes Univer s se Meter 6-05 ity of (BLOOD 00:00: [place] GLUCOSE 00 Medical MONITORING) Branch Kit Blood-Gluco 2012- Yes Univer s se Meter 6-05 ity of (BLOOD 00:00: [place] GLUCOSE 00 Medical MONITORING) Branch Kit Immunizations Ordered Filled Immunization Date Status Comments [facility] e Immunization Name Name Leonarda COVID-19 2021-07-24 Completed Vaccine 00:00:00 Leonarda COVID-19 2021-07-24 Completed Vaccine 00:00:00 Leonarda COVID-19 2021-07-24 Completed Vaccine 00:00:00 Leonarda COVID-19 2021-07-24 Completed Vaccine 00:00:00 Pneumococcal 2020-05-21 Completed University o f Polysaccharide, 00:00:00 [place] [facility] ical PPSV23 (PNEUMOVAX) Branch TDAP 2020-05-21 Completed University of 00:00:00 [facility] Pneumococcal 2020-05-21 Completed University o f Polysaccharide, 00:00:00 [place] [facility] ical PPSV23 (PNEUMOVAX) Branch TDAP 2020-05-21 Completed University of 00:00:00 [facility] Pneumococcal 2020-05-21 Completed University o f Polysaccharide, 00:00:00 [place] [facility] ical PPSV23 (PNEUMOVAX) Branch TDAP 2020-05-21 Completed University of 00:00:00 [facility] Pneumococcal 2020-05-21 Completed University o f Polysaccharide, 00:00:00 [place] [facility] ical PPSV23 (PNEUMOVAX) Branch TDAP 2020-05-21 Completed University of 00:00:00 [facility] Pneumococcal 2020-05-21 Completed University o f Polysaccharide, 00:00:00 [place] [facility] ical PPSV23 (PNEUMOVAX) Branch TDAP 2020-05-21 Completed University of 00:00:00 [facility] Pneumococcal 2020-05-21 Completed University o f Polysaccharide, 00:00:00 [place] [facility] ical PPSV23 (PNEUMOVAX) Branch TDAP 2020-05-21 Completed University of 00:00:00 [facility] MMR 2013-07-25 Completed University of 00:00:00 [facility] MMR 2013-07-25 Completed University of 00:00:00 [facility] MMR 2013-07-25 Completed University of 00:00:00 [facility] MMR 2013-07-25 Completed University of 00:00:00 [facility] MMR 2013-07-25 Completed University of 00:00:00 [facility] MMR 2013-07-25 Completed University of 00:00:00 [facility] TDAP 2013-05-21 Completed University of 00:00:00 [facility] TDAP 2013-05-21 Completed University of 00:00:00 [facility] TDAP 2013-05-21 Completed University of 00:00:00 [facility] TDAP 2013-05-21 Completed University of 00:00:00 [facility] TDAP 2013-05-21 Completed University of 00:00:00 [facility] TDAP 2013-05-21 Completed University of 00:00:00 [facility] Influenza Virus 2013-03-19 Completed Universit y of Vaccine 00:00:00 [facility] Influenza Virus 2013-03-19 Completed Universit y of Vaccine 00:00:00 [facility] Influenza Virus 2013-03-19 Completed Universit y of Vaccine 00:00:00 [facility] Influenza Virus 2013-03-19 Completed Universit y of Vaccine 00:00:00 [facility] Influenza Virus 2013-03-19 Completed Universit y of Vaccine 00:00:00 [facility] Influenza Virus 2013-03-19 Completed Universit y of Vaccine 00:00:00 [facility] Rubella 2008-04-17 Completed University of 00:00:00 [facility] Rubella 2008-04-17 Completed University of 00:00:00 [facility] Rubella 2008-04-17 Completed University of 00:00:00 [facility] Rubella 2008-04-17 Completed University of 00:00:00 [facility] Rubella 2008-04-17 Completed University of 00:00:00 [facility] Rubella 2008-04-17 Completed University of 00:00:00 [facility] Td 2004-07-11 Completed University of 00:00:00 [facility] Td 2004-07-11 Completed University of 00:00:00 [facility] Td 2004-07-11 Completed University of 00:00:00 [facility] Td 2004-07-11 Completed University of 00:00:00 [facility] Td 2004-07-11 Completed University of 00:00:00 [place] [facility] Td 2004-07-11 Completed University 00:00:00 [facility] Vital Signs Vital Name Observation Time Observation Value Comments Source Systolic blood 2021-10-17 02:05:00 117 mm[Hg] Univer sity of pressure [place] [facility] Diastolic blood 2021-10-17 02:05:00 63 mm[Hg] Unive rsity of pressure [place] [facility] Heart rate 2021-10-17 02:05:00 76 /min Universi ty of [place] [facility] Respiratory rate 2021-10-17 02:05:00 18 /min Univ ersity of [place] [facility] Oxygen saturation in 2021-10-17 02:05:00 98 /min University of Arterial blood by [place] [employer] Pulse oximetry Branch Body temperature 2021-10-16 22:30:00 37.33 Lorenza Univ ersity of [place] [facility] Body weight 2021-10-16 21:38:00 103.42 kg [facility] [place] [facility] BMI 2021-10-16 21:38:00 37.94 kg/m2 [facility] [place] [facility] Systolic blood 2021-09-22 17:00:00 108 mm[Hg] Univer sity of pressure [place] [facility] Diastolic blood 2021-09-22 17:00:00 77 mm[Hg] Unive rsity of pressure [place] [facility] Heart rate 2021-09-22 17:00:00 90 /min [facility] [place] [facility] Oxygen saturation in 2021-09-22 17:00:00 97 /min University of Arterial blood by [place] [employer] Pulse oximetry Branch Respiratory rate 2021-09-22 15:00:00 18 /min Univ ersity of [place] [facility] Body temperature 2021-09-22 14:52:00 37.11 Lorenza Univ ersity of [place] [facility] Body weight 2021-09-22 14:52:00 103.42 kg [facility] [place] [facility] BMI 2021-09-22 14:52:00 37.94 kg/m2 [facility] [place] [facility] Systolic blood 2021-06-18 12:00:00 142 mm[Hg] Univer sity of pressure [place] [facility] Diastolic blood 2021-06-18 12:00:00 94 mm[Hg] Unive rsity of pressure [place] [facility] Heart rate 2021-06-18 12:00:00 98 /min [facility] [place] [facility] Body temperature 2021-06-18 12:00:00 36.56 Lorenza Univ ersity of [place] [facility] Respiratory rate 2021-06-18 12:00:00 13 /min Univ ersity of [place] [facility] Oxygen saturation in 2021-06-18 12:00:00 95 /min University of Arterial blood by [facility] Pulse oximetry Branch Body height 2021-06-18 10:37:00 165.1 cm [facility]i ty [facility] [place] [facility] Body weight 2021-06-18 10:37:00 107.502 kg [facility] [place] [facility] BMI 2021-06-18 10:37:00 39.44 kg/m2 [facility] [place] [facility] Systolic blood 2021-05-31 01:34:00 139 mm[Hg] Univer sity of pressure [place] [facility] Diastolic blood 2021-05-31 01:34:00 90 mm[Hg] Unive rsity of pressure [place] [facility] Heart rate 2021-05-31 01:34:00 112 /min [facility] [place] [facility] Respiratory rate 2021-05-31 01:34:00 20 /min Univ ersity of [place] [facility] Oxygen saturation in 2021-05-31 01:34:00 98 /min University of Arterial blood by [facility] Pulse oximetry Branch Body weight 2021-05-30 21:47:00 107.502 kg [facility] [place] [facility] BMI 2021-05-30 21:47:00 40.68 kg/m2 [facility] [place] [facility] BP Systolic 2022-04-09 08:09:00 110 mm[Hg] BP Diastolic 2022-04-09 08:09:00 77 mm[Hg] Weight Measured 2022-04-09 08:09:00 228.00 pounds Height Measured 2022-04-09 08:09:00 64.00 inches Body Temperature 2022-04-09 08:09:00 97.90 degrees Heart Rate 2022-04-09 08:09:00 117.00 /min Respiratory Rate 2022-04-09 08:09:00 16.00 /min BP Systolic 2022-03-09 15:10:00 BP Diastolic 2022-03-09 15:10:00 Weight Measured 2022-03-09 15:10:00 Height Measured 2022-03-09 15:10:00 Body Temperature 2022-03-09 15:10:00 Heart Rate 2022-03-09 15:10:00 Respiratory Rate 2022-03-09 15:10:00 BP Systolic 2022-03-09 15:09:00 108 mm[Hg] BP Diastolic 2022-03-09 15:09:00 75 mm[Hg] Weight Measured 2022-03-09 15:09:00 227.00 pounds Height Measured 2022-03-09 15:09:00 64.00 inches Body Temperature 2022-03-09 15:09:00 97.80 degrees Heart Rate 2022-03-09 15:09:00 97.00 /min Respiratory Rate 2022-03-09 15:09:00 24.00 /min BP Systolic 2021-11-21 10:47:00 132 mm[Hg] BP [...] e POCT GLUCOSE 2021-10-17 01:49:00 Beatriz Eduardo [facility] (AUTOMATED) [facility] POCT GLUCOSE(AGE 2021-10-17 00:41:00 Beatriz Eduardo [facility] >30DAYS) Medical Branch POCT GLUCOSE 2021-10-17 00:40:00 Beatriz Eduardo [facility] (AUTOMATED) [facility] BLOOD CULTURE SCREEN 2021-10-16 23:26:00 Beatriz Eduardo [facility] BLOOD CULTURE SCREEN 2021-10-16 23:03:00 Beatriz Eduardo [facility] TROPONIN I 2021-10-16 23:03:00 Beatriz Eduardo [facility] COMP. METABOLIC PANEL 2021-10-16 23:03:00 Beatriz Eduardo [facility] ([id number]) Medical Branch CBC WITH DIFF 2021-10-16 23:03:00 Beatriz Eduardo [facility] URINALYSIS 2021-10-16 23:03:00 Beatriz Eduardo [facility] N-TERMINAL PRO-BNP 2021-10-16 23:03:00 Beatriz Eduardo [facility] LACTIC ACID WHOLE 2021-10-16 23:01:00 Beatriz Eduardo [facility] BLOOD [facility] Branch CT ABDOMEN PELVIS WO 2021-10-16 22:40:13 Beatriz Eduardo [facility] POCT TEST 2021-10-16 22:34:[address] [facility] CONSENT/REFUSAL FOR 2021-10-16 21:34:04 [facility]igned[facility] AND Name Medical Branch TREATMENT CT ABDOMEN PELVIS WO 2021-09-22 15:59:[address] [facility] POCT TEST 2021-09-22 15:18:00 Jn Gallagher [facility] COMP. METABOLIC PANEL 2021-09-22 15:16:00 Jn Gallagher [facility] ([id number]) [facility] CBC WITH DIFF 2021-09-22 15:16:00 Singer Jn Chloride o [facility] URINALYSIS 2021-09-22 14:58:00 Singer [facility] CONSENT/REFUSAL FOR 2021-09-22 14:47:03 Doctor Unassigned, [facility] Name Medical Branch TREATMENT POCT GLUCOSE 2021-06-18 13:04:00 Fozia Jang [facility] (AUTOMATED) [facility] Branch CT ABDOMEN PELVIS WO 2021-06-18 12:58:31 Fozia Jang [facility] CONTRAST Medical Branch POCT TEST 2021-06-18 11:06:[address] [facility] CREATINE KINASE 2021-06-18 10:50:00 [facility] COMP. METABOLIC PANEL 2021-06-18 10:50:00 Fozia Jang [facility] ([id number]) Medical Branch CBC WITH DIFF 2021-06-18 10:50:00 Fozia Jang [facility] URINALYSIS 2021-06-18 10:50:00 Fozia Jang [facility] RAPID INFLUENZA A/B 2021-06-18 10:50:[address] [facility] COVID-19 (ID NOW RAPID 2021-06-18 10:50:[address] [facility] TESTING) Medical Branch NOTICE OF PRIVACY 2021-06-18 10:24:00 Doctor Unassigned, No [facility] PRACTICES [facility] [place] CONSENT/REFUSAL FOR 2021-06-18 10:21:45 Doctor Unassigned, [facility] AND Name Medical Branch TREATMENT CT ABDOMEN PELVIS W 2021-05-30 23:52:[address] [facility] CONTRAST Medical Branch CT HEAD WO CONTRAST 2021-05-30 23:52:13 Mary Espinosa [facility] XR CHEST 1 VW 2021-05-30 22:38:06 Mary Espinosa [facility] XR HAND 3+ VW LEFT 2021-05-30 22:38:06 Mary Espinosa [facility] Branch XR FOREARM 2 VW LEFT 2021-05-30 22:28:[address] [facility] CONSENT/REFUSAL FOR 2021-05-30 21:39:04 Doctor [facility]assigned, [facility] AND Name Medical Branch TREATMENT [id number] Ecg Routine Ecg 2015-12-20 00:00:00 W/least 12 Lds W/i r 83.71 2010-08-05 00:00:00 [facility] 77.98 2010-08-05 00:00:00 [facility] Plan of Care Planned Activity Planned Date Details Comments Source Future Scheduled 2022-03-16 [facility] Test 11:35:00 VACCINES (1 of 3 - 3-dose series) [code = HEPATITIS B VACCINES (1 of 3 - 3-dose series)] Future Scheduled 2022-03-16 COVID-19 VACCINE [facility] Test 11:35:00 (#1) [code = COVID-19 VACCINE (#1)] Future Scheduled 2022-03-16 Hepatitis C [facility] Test 11:35:00 screening (procedure) [code = 612851835] Future Scheduled 2022-03-16 Screening for [facility] Test 11:35:00 malignant neoplasm of cervix (procedure) [code = 249644151] Future Scheduled 2022-03-16 BREAST CANCER [facility] Test 11:35:00 SCREENING [code = BREAST CANCER SCREENING] Future Scheduled 2022-03-16 INFLUENZA VACCINE [facility] Test 11:35:00 [code = INFLUENZA VACCINE] Future Scheduled 2022-03-16 [facility]ITIS [facility] Test 11:35:00 VACCINES (1 of 3 - 3-dose series) [code = HEPATITIS B VACCINES (1 of 3 - 3-dose series)] Future Scheduled 2022-03-16 COVID-19 VACCINE [facility] Test 11:35:00 (#1) [code = COVID-19 VACCINE (#1)] Future Scheduled 2022-03-16 [facility] Test 11:35:00 screening (procedure) [code = 336700405] Future Scheduled 2022-03-16 Screening for [facility] Test 11:35:00 malignant neoplasm of cervix (procedure) [code = 280323879] Future Scheduled 2022-03-16 BREAST CANCER [facility] Test 11:35:00 SCREENING [code = BREAST CANCER SCREENING] Future Scheduled 2022-03-16 INFLUENZA VACCINE [facility] Test 11:35:00 [code = INFLUENZA VACCINE] Future Scheduled 2022-03-09 [facility]ITIS B [facility] Test 12:08:14 VACCINES (1 of 3 - 3-dose series) [code = HEPATITIS B VACCINES (1 of 3 - 3-dose series)] Future Scheduled 2022-03-09 [facility]14 (#1) [code = COVID-19 VACCINE (#1)] Future Scheduled 2022-03-09 [facility] Test 12:08:14 screening (procedure) [code = 032397474] Future Scheduled 2022-03-09 Screening for [facility] Test 12:08:14 malignant neoplasm of cervix (procedure) [code = 598292432] Future Scheduled 2022-03-09 BREAST CANCER [facility] Test 12:08:14 SCREENING [code = BREAST CANCER SCREENING] Future Scheduled 2022-03-09 INFLUENZA VACCINE [facility] Test 12:08:14 [code = INFLUENZA VACCINE] Future Scheduled 2022-03-09 [facility]ITIS [facility] Test 12:08:14 VACCINES (1 of 3 - 3-dose series) [code = HEPATITIS B VACCINES (1 of 3 - 3-dose series)] Future Scheduled 2022-03-09 [facility] 12:08:14 (#1) [code = COVID-19 VACCINE (#1)] Future Scheduled 2022-03-09 [facility] Test 12:08:14 screening (procedure) [code = 510635173] Future Scheduled 2022-03-09 Screening for [facility] Test 12:08:14 malignant neoplasm of cervix (procedure) [code = 145677370] Future Scheduled 2022-03-09 BREAST CANCER [facility] Test 12:08:14 SCREENING [code = BREAST CANCER SCREENING] Future Scheduled 2022-03-09 INFLUENZA VACCINE [facility] Test 12:08:14 [code = INFLUENZA VACCINE] Future Scheduled 2022-03-09 [facility]ITIS B [facility] Test 12:08:14 VACCINES (1 of 3 - 3-dose series) [code = HEPATITIS B VACCINES (1 of 3 - 3-dose series)] Future Scheduled 2022-03-09 [facility] 12:08:14 (#1) [code = COVID-19 VACCINE (#1)] Future Scheduled 2022-03-09 [facility] Test 12:08:14 screening (procedure) [code = 256549027] Future Scheduled 2022-03-09 Screening for [facility] Test 12:08:14 malignant neoplasm of cervix (procedure) [code = 008890449] Future Scheduled 2022-03-09 BREAST CANCER [facility] Test 12:08:14 SCREENING [code = BREAST CANCER SCREENING] Future Scheduled 2022-03-09 INFLUENZA VACCINE [facility] Test 12:08:14 [code = INFLUENZA VACCINE] Goal Plan of Care Note [code = 21625-5] Goal Plan of Care Note [code = 44314-7] Goal Plan of Care Note [code = 03442-2] Goal Plan of Care Note [code = 72374-9] Goal Plan of Care Note [code = 06349-5] Goal Plan of Care Note [code = 28582-1] Goal Plan of Care Note [code = 00550-7] Goal Plan of Care Note [code = 20926-8] Goal Plan of Care Note [code = 17112-2] Goal Plan of Care Note [code = 25237-7] Goal Plan of Care Note [code = 58563-8] Goal Plan of Care Note [code = 26366-8] Goal Plan of Care Note [code = 41609-9] Goal Plan of Care Note [code = 94832-9] Goal Plan of Care Note [code = 49192-7] Goal Plan of Care Note [code = 79732-5] Goal Plan of Care Note [code = 34007-6] Goal Plan of Care Note [code = 62310-2] Goal Plan of Care Note [code = 09523-8] Goal Plan of Care Note [code = 20744-6] Goal Plan of Care Note [code = 55697-4] Goal Plan of Care Note [code = 95355-8] Goal Plan of Care Note [code = 86236-6] Goal Plan of Care Note [code = 28998-0] Goal Plan of Care Note [code = 00036-1] Goal Plan of Care Note [code = 65470-0] Goal Plan of Care Note [code = 35242-0] Goal Plan of Care Note [code = 21714-5] Goal Plan of Care Note [code = 09432-0] Goal Plan of Care Note [code = 95003-2] Goal Plan of Care Note [code = 75531-7] Goal Plan of Care Note [code = 16011-4] Goal Plan of Care Note [code = 01321-6] Goal Plan of Care Note [code = 25948-2] Goal Plan of Care Note [code = 80556-3] Goal Plan of Care Note [code = 19463-3] Goal Plan of Care Note [code = 25264-3] Goal Plan of Care Note [code = 13236-6] Goal Plan of Care Note [code = 09216-9] Goal Plan of Care Note [code = 28576-3] Goal Plan of Care Note [code = 71497-4] Goal Plan of Care Note [code = 72442-2] Goal Plan of Care Note [code = 14354-2] Goal Plan of Care Note [code = 48145-5] Goal Plan of Care Note [code = 74113-1] Goal Plan of Care Note [code = 25324-9] Goal Plan of Care Note [code = 83327-7] Goal Plan of Care Note [code = 34728-7] Goal Plan of Care Note [code = 57413-8] Goal Plan of Care Note [code = 70717-5] Goal Plan of Care Note [code = 06856-6] Goal Plan of Care Note [code = 58105-0] Goal Plan of Care Note [code = 41182-4] Goal Plan of Care Note [code = 18770-8] Goal Plan of Care Note [code = 08710-0] Goal Plan of Care Note [code = 20049-1] Goal Plan of Care Note [code = 21784-9] Goal Plan of Care Note [code = 13428-6] Goal Plan of Care Note [code = 01654-8] Goal Plan of Care Note [code = 35182-5] Goal Plan of Care Note [code = 53040-3] Goal Plan of Care Note [code = 57882-4] Goal Plan of Care Note [code = 12596-5] Goal Plan of Care Note [code = 37650-4] Goal Plan of Care Note [code = 25618-6] Goal Plan of Care Note [code = 64228-5] Goal Plan of Care Note [code = 06222-5] Goal Plan of Care Note [code = 82961-7] Goal Plan of Care Note [code = 37659-9] Goal Plan of Care Note [code = 49014-7] Goal Plan of Care Note [code = 52868-4] Goal Plan of Care Note [code = 00077-8] Goal Plan of Care Note [code = 57746-6] Goal Plan of Care Note [code = 59844-3] Goal Plan of Care Note [code = 32362-9] Goal Plan of Care Note [code = 12325-0] Goal Plan of Care Note [code = 64660-0] Goal Plan of Care Note [code = 93600-2] Goal Plan of Care Note [code = 25035-6] Goal Plan of Care Note [code = 20153-2] Goal Plan of Care Note [code = 92922-4] Goal Plan of Care Note [code = 24017-8] Goal Plan of Care Note [code = 20016-4] Goal Plan of Care Note [code = 66425-5] Goal Plan of Care Note [code = 87570-2] Goal Plan of Care Note [code = 94718-7] Goal Plan of Care Note [code = 32028-2] Goal Plan of Care Note [code = 42882-9] Goal Plan of Care Note [code = 30399-1] Goal Plan of Care Note [code = 92733-5] Goal Plan of Care Note [code = 48488-7] Goal Plan of Care Note [code = 93027-2] Goal Plan of Care Note [code = 87161-8] Goal Plan of Care Note [code = 15649-0] Goal Plan of Care Note [code = 78474-0] Goal Plan of Care Note [code = 11241-5] Goal Plan of Care Note [code = 93190-4] Goal Plan of Care Note [code = 56363-9] Goal Plan of Care Note [code = 41692-7] Goal Plan of Care Note [code = 74147-0] Goal Plan of Care Note [code = 60524-8] Goal Plan of Care Note [code = 19648-8] Goal Plan of Care Note [code = 21879-0] Goal Plan of Care Note [code = 20034-1] Goal Plan of Care Note [code = 72251-6] Goal Plan of Care Note [code = 03900-6] Goal Plan of Care Note [code = 29165-1] Goal Plan of Care Note [code = 31581-2] Goal Plan of Care Note [code = 89075-0] Goal Plan of Care Note [code = 41143-7] Goal Plan of Care Note [code = 28413-4] Goal Plan of Care Note [code = 08047-8] Goal Plan of Care Note [code = 56936-9] Goal Plan of Care Note [code = 42092-9] Goal Plan of Care Note [code = 67060-9] Goal Plan of Care Note [code = 35704-9] Goal Plan of Care Note [code = 38486-5] Goal Plan of Care Note [code = 91162-6] Goal Plan of Care Note [code = 88934-0] Goal Plan of Care Note [code = 01423-5] Goal Plan of Care Note [code = 22526-0] Goal Plan of Care Note [code = 72950-7] Goal Plan of Care Note [code = 23333-5] Goal Plan of Care Note [code = 84726-1] Goal Plan of Care Note [code = 24335-3] Goal Plan of Care Note [code = 04248-4] Goal Plan of Care Note [code = 74911-7] Goal Plan of Care Note [code = 99141-9] Goal Plan of Care Note [code = 19375-5] Goal Plan of Care Note [code = 75668-1] Goal Plan of Care Note [code = 60521-6] Goal Plan of Care Note [code = 45408-3] Goal Plan of Care Note [code = 82632-9] Goal Plan of Care Note [code = 53324-8] Goal Plan of Care Note [code = 59777-2] Goal Plan of Care Note [code = 04521-8] Goal Plan of Care Note [code = 07001-1] Goal Plan of Care Note [code = 48443-3] Goal Plan of Care Note [code = 97495-5] Goal Plan of Care Note [code = 55196-1] Goal Plan of Care Note [code = 32725-9] Goal Plan of Care Note [code = 93017-8] Goal Plan of Care Note [code = 40042-1] Goal Plan of Care Note [code = 99487-6] Goal Plan of Care Note [code = 34823-9] Goal Plan of Care Note [code = 53006-8] Goal Plan of Care Note [code = 58352-8] Goal Plan of Care Note [code = 92986-9] Goal Plan of Care Note [code = 58761-7] Goal Plan of Care Note [code = 08979-4] Goal Plan of Care Note [code = 28543-9] Goal Plan of Care Note [code = 83572-5] Goal Plan of Care Note [code = 17854-7] Goal Plan of Care Note [code = 27482-0] Goal Plan of Care Note [code = 53847-6] Goal Plan of Care Note [code = 41299-8] Goal Plan of Care Note [code = 65936-7] Goal Plan of Care Note [code = 67743-9] Goal Plan of Care Note [code = 74157-4] Goal Plan of Care Note [code = 20107-1] Goal Plan of Care Note [code = 33866-2] Goal Plan of Care Note [code = 06286-6] Goal Plan of Care Note [code = 81548-3] Goal Plan of Care Note [code = 82248-2] Goal Plan of Care Note [code = 61953-9] Goal Plan of Care Note [code = 89396-5] Goal Plan of Care Note [code = 00189-9] Goal Plan of Care Note [code = 83833-8] Goal Plan of Care Note [code = 64106-2] Goal Plan of Care Note [code = 53992-1] Goal Plan of Care Note [code = 01164-6] Goal Plan of Care Note [code = 78196-1] Goal Plan of Care Note [code = 08022-9] Goal Plan of Care Note [code = 85944-8] Goal Plan of Care Note [code = 63471-6] Goal Plan of Care Note [code = 22261-2] Goal Plan of Care Note [code = 25160-0] Goal Plan of Care Note [code = 10857-8] Goal Plan of Care Note [code = 50544-7] Goal Plan of Care Note [code = 15608-0] Goal Plan of Care Note [code = 46856-3] Goal Plan of Care Note [code = 30915-5] Goal Plan of Care Note [code = 01360-9] Goal Plan of Care Note [code = 61043-1] Goal Plan of Care Note [code = 52459-3] Goal Plan of Care Note [code = 22077-3] Goal Plan of Care Note [code = 29949-3] Goal Plan of Care Note [code = 16212-5] Goal Plan of Care Note [code = 88191-8] Goal Plan of Care Note [code = 47890-6] Goal Plan of Care Note [code = 10836-2] Goal Plan of Care Note [code = 73986-4] Goal Plan of Care Note [code = 52536-5] Goal Plan of Care Note [code = 21116-4] Goal Plan of Care Note [code = 09200-2] Goal Plan of Care Note [code = 83387-6] Goal Plan of Care Note [code = 47557-8] Goal Plan of Care Note [code = 44929-9] Goal Plan of Care Note [code = 47747-4] Goal Plan of Care Note [code = 59679-7] Goal Plan of Care Note [code = 16283-1] Goal Plan of Care Note [code = 64472-8] Goal Plan of Care Note [code = 52060-6] Goal Plan of Care Note [code = 74151-8] Goal Plan of Care Note [code = 78748-1] Goal Plan of Care Note [code = 75838-3] Goal Plan of Care Note [code = 65674-5] Goal Plan of Care Note [code = 87950-8] Goal Plan of Care Note [code = 77439-3] Goal Plan of Care Note [code = 79714-1] Goal Plan of Care Note [code = 41896-4] Goal Plan of Care Note [code = 72151-7] Goal Plan of Care Note [code = 60926-4] Goal Plan of Care Note [code = 90077-7] Goal Plan of Care Note [code = 59588-6] Goal Plan of Care Note [code = 97146-2] Goal Plan of Care Note [code = 64489-8] Goal Plan of Care Note [code = 26318-3] Goal Plan of Care Note [code = 00248-3] Goal Plan of Care Note [code = 09060-5] Goal Plan of Care Note [code = 74835-0] Goal Plan of Care Note [code = 97533-8] Goal Plan of Care Note [code = 95380-3] Goal Plan of Care Note [code = 69848-3] Goal Plan of Care Note [code = 00219-2] Goal Plan of Care Note [code = 43900-5] Goal Plan of Care Note [code = 18784-9] Goal Plan of Care Note [code = 62648-4] Goal Plan of Care Note [code = 23621-6] Goal Plan of Care Note [code = 47810-8] Goal Plan of Care Note [code = 33118-0] Goal Plan of Care Note [code = 92125-7] Goal Plan of Care Note [code = 90007-5] Goal Plan of Care Note [code = 30110-4] Goal Plan of Care Note [code = 09889-7] Goal Plan of Care Note [code = 41096-1] Goal Plan of Care Note [code = 20201-2] Goal Plan of Care Note [code = 60418-8] Goal Plan of Care Note [code = 32218-4] Goal Plan of Care Note [code = 81636-7] Goal Plan of Care Note [code = 96904-9] Goal Plan of Care Note [code = 53057-9] Goal Plan of Care Note [code = 41784-7] Goal Plan of Care Note [code = 84546-8] Goal Plan of Care Note [code = 25404-9] Goal Plan of Care Note [code = 85096-5] Goal Plan of Care Note [code = 10258-8] Goal Plan of Care Note [code = 13077-5] Goal Plan of Care Note [code = 57839-3] Goal Plan of Care Note [code = 82118-9] Goal Plan of Care Note [code = 03884-0] Goal Plan of Care Note [code = 28727-6] Goal Plan of Care Note [code = 18586-2] Goal Plan of Care Note [code = 82660-1] Goal Plan of Care Note [code = 19463-7] Goal Plan of Care Note [code = 02951-4] Goal Plan of Care Note [code = 71853-6] Goal Plan of Care Note [code = 65981-9] Goal Plan of Care Note [code = 74512-9] Goal Plan of Care Note [code = 40088-7] Goal Plan of Care Note [code = 54583-3] Goal Plan of Care Note [code = 05968-1] Goal Plan of Care Note [code = 96200-0] Goal Plan of Care Note [code = 17023-0] Goal Plan of Care Note [code = 37602-4] Goal Plan of Care Note [code = 12967-0] Goal Plan of Care Note [code = 42206-5] Goal Plan of Care Note [code = 13938-8] Goal Plan of Care Note [code = 44577-7] Goal Plan of Care Note [code = 62035-5] Goal Plan of Care Note [code = 65931-9] Goal Plan of Care Note [code = 28037-2] Goal Plan of Care Note [code = 49425-4] Goal Plan of Care Note [code = 70134-2] Encounters Start End Encounter Admission Attending Care Care Encounter Source Date/Time Date/Time Type Type Clinicians Facility Department ID 2021-05-10 Emergency [facility] [id number] Univers 15:04:50 [facility] 2021-05-08 Emergency [facility] [id number] Univers 16:08:38 [facility] 2020-08-08 Inpatient Bebeto Valderrama [facility] RADI [id number] [facility] 15:30:00 59 [facility] 2020-08-02 Inpatient HCAT[facility] CARISSA [id number] [facility] 13:01:00 80 [facility] 2020-02-13 Inpatient HCAT[facility] CARISSA [id number] [facility] 19:15:00 41 [facility] 2020-01-16 Inpatient ERICA Wilson [facility] SURG [id number] [facility] 16:00:00 Tomchristineo 97 [facility] 2022-04-09 2022-04-09 Outpatient [facility] [id number] Huang 08:02:18 08:02:18 0930 F Quirino 2022-04-09 2022-04-09 Outpatient [id number]- [id number] c2 u08366-1 00:00:00 00:00:00 Visit 5e69-57i4 i80-66t9-8 -8750-031 750-0319bb 9bwcf2053 fe7568 2022-03-29 2022-03-29 Outpatient [id number] 849789-v 00:00:00 00:00:00 Visit w854-60v5 701-46a9-a -r6u4-g22 1a6-h70412 6684z88t7 3d26f8 2022-03-16 2022-03-16 [facility] 1.2.840.1 [id number] 2099 [id number] Methodi 00:00:00 00:00:[address] [facility] 3.430.2.7 Hospit a Arik .3.008154 l .8 2022-03-16 2022-03-16 Telephone [facility], 1.2.840.1 [id number] 2099 090424 Methodi 00:00:00 00:00:[address] [facility] 3.430.2.7 Hospit a Arik .3.206451 l .8 2022-03-11 2022-03-11 Telephone [facility] 1.2.840.1 [id number] 2099 251323 Methodi 00:00:00 00:00:[address] [facility] 3.430.2.7 Hospit a Arik .3.426857 l .8 2022-03-11 2022-03-11 Telephone [facility], 1.2.840.1 [id number] 2099 689195 Methodi 00:00:00 00:00:[address] [facility] 3.430.2.7 Hospit a Arik .3.990079 l .8 2022-03-09 2022-03-09 Outpatient [id number]- [id number] d6 a26859-f 00:00:00 00:00:00 Visit x32o-286h 56a-450d-9 -7s2u-76k k2t-05b858 627j68705 q67098 2022-01-20 2022-01-20 Outpatient 5sg98rbo- [id number] 0f s27nud-9 00:00:00 00:00:00 Visit 8baf-464d baf-464d-a -g63d-872 91e-48855p 57dlfi39m aeb84a 2021-10-16 2021-10-16 Emergency X [facility] ERT [id number] Univers 16:39:00 22:23:00 BEATRIZ diaz [facility] 2021-10-16 2021-10-16 [facility] 1.2.171.847 [id number] Univers 16:39:00 22:23:00 Beatriz BARBER 350.1.13.10 [facility] 4[phone] [address] 2021-09-22 2021-09-22 Emergency X [facility] ERT [id number] Univers 09:56:00 12:05:00 JN diaz [facility] 2021-09-22 2021-09-22 Emergency [facility] 1.2.049.743 [id number] Univers 09:56:00 12:05:00 Jn BARBER 350.1.13.10 i ty of [place] 4.2.7.2.686 [facility] [phone] [address] 2021-08-20 2021-08-20 [facility] 1.2.840.114 [id number] Univers 00:00:00 00:00:00 [facility] 350.1.13.10 it y of [place] 4.2.7.2.686 Blake as DANIELITO?BLEA [id number] [facility] [address] MED[facility] OFF[facility] 2021-07-31 2021-07-31 Outpatient Bebeto Valderrama Y000 [id number] [facility] 05:47:00 05:47:00 00 [facility] 2021-06-18 2021-06-18 [facility] [id number] Univers 04:31:00 08:25:00 FOZIA diaz [facility] 2021-06-18 2021-06-18 [facility] 1.2.162.957 [id number] Univers 04:31:00 08:25:00 Fozia BARBER 350.1.13.10 ity of [place] 4.2.7.2.686 [facility] [id number] [address] 2021-06-10 2021-06-10 Outpatient [facility] [id number] [place] 00:00:00 00:00:[address] 2021-06-10 2021-06-10 Travel 1.2.840.1 1.2.460.403 6103 [id number] Methodi 00:00:00 00:00:[address] 3.430.2.7 0.2.7.3.698 Ho spita .3.287934 084.8 l .8 2021-06-10 2021-06-10 Travel 1.2.840.1 1.2.108.163 7463 583383 Methodi 00:00:00 00:00:[address] 3.430.2.7 0.2.7.3.698 Ho spita .3.599320 084.8 l .8 2021-06-08 2021-06-08 Tele[facility] 1.2.840.1 [id number] 2099 [id number] Methodi 00:00:00 00:00:[address] Dewi 3.430.2.7 Hospit a Arik .3.541433 l .8 2021-06-08 2021-06-08 Telephone Antosh, 1.2.840.1 [id number] 2099 566440 Methodi 00:00:00 00:00:[address] Dewi 3.430.2.7 Hospit a Arik .3.242100 l .8 2021-05-30 2021-05-30 Emergency X MISTY COCLAIR ERT [id number] Univers 15:49:00 19:42:00 MARY diaz of [facility] 2021-05-30 2021-05-30 Emergency Misty COCLAIR 1.2.843.159 [id number] [id number] Univers 15:49:00 19:42:00 Mary Moat [place] 350.1.13.10 i ty [facility] 4.2.7.2.686 [facility] [phone] [address] 2021-03-17 2021-03-17 [facility] 1.2.712.549 [id number] Univers 00:00:00 00:00:00 Doron H Lakisha 350.1.13.10 i [facility] [place] 4.2.7.2.686 Fab Pinzonisabelle [id number] Id dical nal [address] 2021-02-27 2021-02-27 Outpatient DONNA [facility] [id number] 0Q-20 Univers 15:00:00 15:00:00 DORON [id number] [facility] 2021-02-27 2021-02-27 [facility] [id number] Univers 15:00:00 15:00:00 DORON [facility] 2021-02-19 2021-02-19 Outpatient Anupama GONZALEZ [facility] [id number] -20 Univers 11:30:00 11:30:00 SENDIL [id number] [facility] 2021-01-02 2021-01-02 Outpatient Anupama AVALOS [facility] [id number] Q-20 Univers 11:15:00 11:15:00 FABIO [id number] [facility] 2020-12-23 2020-12-23 Outpatient Anupama AVALOS [facility] [id number] Q-20 Univers 16:00:00 16:00:00 FABIO [id number] [facility] 2020-12-23 2020-12-23 Outpatient Anupama AVALOS [facility] [id number] Univers 16:00:00 16:00:00 FABIO [facility] 2020-12-19 2020-12-19 Outpatient Anupama AVALOS [facility] [id number] Q-20 Univers 11:00:00 11:00:00 FABIO [id number] [facility] 2020-12-10 2020-12-10 Outpatient Anupama GONZALEZ [facility] [id number] Univers 09:00:00 09:53:04 SENDIL [facility] 2020-12-10 2020-12-10 Outpatient Anupama GONZALEZ [facility] [id number] -20 Univers 09:00:00 09:00:00 SENDIL [id number] [facility] 2020-12-02 2020-12-04 Outpatient X LAINE [facility] ANTONIO [id number] Univers 19:53:00 17:23:00 FOZIA [facility] 2020-11-07 2020-11-07 Outpatient R DONNA [facility] [id number] Univers 13:30:00 13:30:00 DORON [facility] 2020-06-02 2020-06-02 Telephone [facility] 1.2.840.114 [id number] 00:00:00 00:00:00 Lily Barber 350.1.13.10 [place] 4.2.7.2.686 Professio [id number] [address] 2020-05-29 2020-05-29 [facility] 010 310Q-20 Univers 15:15:00 15:15:00 LESLEE [id number] [facility] 2020-05-29 2020-05-29 [facility] [id number] Univers 15:15:00 15:15:00 LESLEE [facility] 2020-05-27 2020-05-27 Office [facility] 1.2.558.642 [id number] 10:59:24 11:54:17 Visit Lily Barber 350.1.13.10 [place] 4.2.7.2.686 Professio [id number] [address] 2020-05-27 2020-05-27 [facility] [id number] 0Q-20 Univers 10:45:00 10:45:00 LILY [id number] [facility] 2020-05-27 2020-05-27 [facility] [id number] Univers 10:45:00 10:45:00 LILY [facility] 2020-05-27 2020-05-27 Orders Doctor JACOBS 1.2.840.114 [id number] 00:00:00 00:00:00 Only Unassigned, BENITA 350.1.13.10 [place] [facility] 4.2.7.2.686 [id number] 009 2020-01-10 2020-01-10 Outpatient TIANA Wilson LABO [id number] [facility] 18:46:00 18:46:00 Tomiko 24 [facility] 2020-01-04 2020-01-04 Outpatient DINAH Wilson RADI [id number] [facility] 13:00:00 13:00:00 Tomiko 18 [facility] 2019-12-12 2019-12-12 [facility] [id number] -[id number] Univers 16:30:00 16:30:00 STANISLAW [id number] [facility] 2019-12-12 2019-12-12 [facility] [id number] 16:30:00 16:30:00 STANISLAW [facility] 2019-12-07 2019-12-07 Outpatient Anupama THOMPSON [facility] [id number] [facility] 09:00:00 09:00:00 DORON [facility] 2019-11-22 2019-11-22 Outpatient ANTOSH, [facility] [id number] [address] [place] 00:00:00 00:00:00 SILVINA 303 [place] 2019-11-06 2019-11-06 [facility] [id number] [address] [place] 00:00:00 00:00:00 SILVINA 632 [place] 2019-11-01 2019-11-01 [facility] [id number] 728 [place] 00:00:00 00:00:00 SILVINA 554 [place] 2019-10-30 2019-10-30 Outpatient GALAN, [facility] [id number] [address] [place] 00:00:00 00:00:00 ABHIJIT 714 Method i 2019-10-18 2019-10-18 Outpatient ANTOSH, [facility] [id number] 079 [place] 00:00:00 00:00:00 SILVINA 629 [place] 2019-10-02 2019-10-02 Outpatient ANTOSH, [facility] [id number] 696 [place] 00:00:00 00:00:00 SILVINA 105 [place] 2019-10-01 2019-10-01 Outpatient ANTOSH, [facility] [id number] 639 [place] 00:00:00 00:00:00 SILVINA 439 [place] 2019-09-19 2019-09-19 Outpatient ERNST [facility] [id number] 779 [place] 00:00:00 00:00:00 SILVINA 116 [place] 2019-09-11 2019-09-11 Outpatient Anupama SUN [facility] [id number] -[id number] Univers 10:30:00 10:30:00 STANISLAW [id number] [facility] 2019-09-11 2019-09-11 Outpatient Anupama SUN [facility] [id number] Univers 10:30:00 10:30:00 STANISLAW [facility] 2019-09-10 2019-09-10 Outpatient ANGELIA [facility] [id number] 503 [place] 00:00:00 00:00:00 ABHIJIT 420 Method i 2019-09-10 2019-09-10 Outpatient ERNST [facility] [id number] 217 [place] 00:00:00 00:00:00 SILVINA 373 [place] 2019-09-10 2019-09-10 Outpatient [facility]ST [facility] [id number] 783 [place] 00:00:00 00:00:00 SILVINA 354 [place] 2019-08-23 2019-08-23 [facility] [id number] Univers 16:15:00 10:31:44 [facility] 2019-08-15 2019-08-15 Outpatient Anupama DELEON [facility] [id number] Univers 09:15:00 09:44:35 [facility] 2019-07-07 2019-07-07 Emergency X YALAURENMA, [facility] ERT [id number] Univers 10:13:53 13:06:00 FOZIA [facility] 2010-08-05 2010-08-07 Inpatient OUTP Kit Lopez [facility] SURG [id number] [facility] 16:20:00 14:00:00 00 [facility] Results Test Description Test Time Test Comments Results Result Comments Source COMPREHENSIVE METABOLIC PANEL 2022-03-11 04:26:32 Test Item Value Reference Range Interpretation Comme nts GLUCOSE (test code = 2217) 122 MG/DL 70-99 H BUN (test code = 2208) 11 MG/DL 6-20 CREATININE (test code = 0.65 MG/DL 0.60-1.30 2213) eGFR (2020 CKD-EPI) (test 111 ML/MIN/1.73 >60 code = 14096) CALC BUN/CREAT (test code = 17 RATIO 6-28 2234) SODIUM (test code = 223) 145 MEQ/L 133-146 POTASSIUM (test code = 2228) 4.2 MEQ/L 3.5-5.4 CHLORIDE (test code = 2214) 107 MEQ/L 95-107 CARBON DIOXIDE (test code = 26 MEQ/L -2205) CALCIUM (test code = 2208) 9.8 MG/DL 8.5-10.5 PROTEIN, TOTAL (test code = 7.5 G/DL 6.1-8.3 2228) ALBUMIN (test code = 2200) 4.5 G/DL 3.5-5.2 CALC GLOBULIN (test code = 3.0 G/DL 1.9-3.7 2239) CALC A/G RATIO (test code = 1.5 RATIO 1.0-2.6 2233) BILIRUBIN, TOTAL (test code 0.5 MG/DL See_Comment [Automated message] The = 2206) system which ge nerated this result transmit faith reference range : <=1.2. The reference range was not used to interpr et this result as rustam l/abnormal. ALKALINE PHOSPHATASE (test 62 U/L 40-115 code = 2204) AST (test code = 2218) 24 U/L 9-40 ALT (test code = 2219) 38 U/L 5-40 LIPID [id number] 04:26:32 Test Item Value Reference Range Interpretation Comments CHOLESTEROL (test 169 MG/DL <200 code = 2210) TRIGLYCERIDES (test 346 MG/DL <150 H code = 2232) HDL CHOLESTEROL (test 32 MG/DL >39 L code = 2220) CALC LDL CHOL (test 91 MG/DL <100 NOTE: C ALCULATED LDL code = 2237) IS BASED ON RICK-RASHID METHOD WHICHINCLUDES ADJUSTABLE TRIGLYCERIDE:VL DL CHOLESTEROL RAT IO.THIS FACTOR VARIES B Y MEASURED TRIGLY CERIDE AND NON-HDLCHOL ESTEROL CONCENTRATIONS WITH INCREASED CALCU LATED LDL SEENIN HIGH ER TRIGLYCERIDE OR LOWER NON-HDL SPECIME NS. FOR MOREINFORMATION , SEE CLIENT ANNOUNCE MENT AT [email or web address] [email or web address] RATIO LDL/HDL 2.84 RATIO <3.22 (test code = 2238) HEMOGLOBIN [id number] 04:03:31 Test Item Value Reference Range Interpretation Comments HEMOGLOBIN A1c (test 10.9 % 4.2-5.6 H [employer] DIABETES code = 78488) ASSOCIATION IDELINES FOR HGB A1C: PREDIABETES/INC REASED [...] ALTERN ATE TESTING OR LABORATORY C ONSULTATION. UNLESS OTHERWIS E INDICATED, ALL TESTING PER [facility] ATCLINICAL PATH [facility], [facility]. [address] [place] [id number] LABORATORY DIRE CTOR: Carlos Enrique BERNARD. CLIA NUMBER [id number] CAP ACCREDITATION N O. [id number] COMPREHENSIVE METABOLIC [id number] 00:00:00 Test Item Value Reference Range Interpretation Comments GLUCOSE (test code = 2217) 122 MG/DL BUN (test code = 2208) 11 MG/DL CREATININE (test code = 2214) 0.65 MG/DL eGFR (2020 CKD-EPI) (test 111 ML/MIN/1.73 code = 52540) CALC BUN/CREAT (test code = 17 RATIO 2235) SODIUM (test code = 2231) 145 MEQ/L POTASSIUM (test code = 2228) 4.2 MEQ/L CHLORIDE (test code = 2215) 107 MEQ/L CARBON DIOXIDE (test code = 26 MEQ/L 2205) CALCIUM (test code = 2209) 9.8 MG/DL PROTEIN, TOTAL (test code = 7.5 G/DL 2228) ALBUMIN (test code = 2201) 4.5 G/DL CALC GLOBULIN (test code = 3.0 G/DL 2239) CALC A/G RATIO (test code = 1.5 RATIO 2233) BILIRUBIN, TOTAL (test code = 0.5 MG/DL 2207) ALKALINE PHOSPHATASE (test 62 U/L code = 2204) AST (test code = 2218) 24 U/L ALT (test code = 2219) 38 U/L COMPREHENSIVE METABOLIC [id number] 00:00:00 Test Item Value Reference Range Interpretation Comments GLUCOSE (test code = 2217) 122 MG/DL BUN (test code = 2208) 11 MG/DL CREATININE (test code = 2214) 0.65 MG/DL eGFR (2020 CKD-EPI) (test 111 ML/MIN/1.73 code = 83346) CALC BUN/CREAT (test code = 17 RATIO 2235) SODIUM (test code = 2231) 145 MEQ/L POTASSIUM (test code = 2228) 4.2 MEQ/L CHLORIDE (test code = 2215) 107 MEQ/L CARBON DIOXIDE (test code = 26 MEQ/L 2205) CALCIUM (test code = 2209) 9.8 MG/DL PROTEIN, TOTAL (test code = 7.5 G/DL 2228) ALBUMIN (test code = 2201) 4.5 G/DL CALC GLOBULIN (test code = 3.0 G/DL 224) CALC A/G RATIO (test code = 1.5 RATIO 2234) BILIRUBIN, TOTAL (test code = 0.5 MG/DL 2206) ALKALINE PHOSPHATASE (test 62 U/L code = 2204) AST (test code = 2218) 24 U/L ALT (test code = 2219) 38 U/L LIPID [id number] 00:00:00 Test Item Value Reference Range Interpretation Comments CHOLESTEROL (test code = 2210) 169 MG/DL TRIGLYCERIDES (test code = 2232) 346 MG/DL HDL CHOLESTEROL (test code = 2220) 32 MG/DL CALC LDL CHOL (test code = 2237) 91 MG/DL RISK RATIO LDL/HDL (test code = 2.84 RATIO 2238) LIPID [id number] 00:00:00 Test Item Value Reference Range Interpretation Comments CHOLESTEROL (test code = 2210) 169 MG/DL TRIGLYCERIDES (test code = 2232) 346 MG/DL HDL CHOLESTEROL (test code = 2220) 32 MG/DL CALC LDL CHOL (test code = 2237) 91 MG/DL RISK RATIO LDL/HDL (test code = 2.84 RATIO 2238) HEMOGLOBIN [id number] 00:00:00 Test Item Value Reference Range Interpretation Comments HEMOGLOBIN A1c (test code = 80280) 10.9 % HEMOGLOBIN [id number] 00:00:00 Test Item Value Reference Range Interpretation Comments HEMOGLOBIN A1c (test code = 82348) 10.9 % HEMOGLOBIN [id number] 00:00:00 Test Item Value Reference Range Interpretation Comments HEMOGLOBIN A1c (test code = 44376) 10.9 % COMPREHENSIVE METABOLIC [id number] 00:00:00 Test Item Value Reference Range Interpretation Comments GLUCOSE (test code = 2217) 122 MG/DL BUN (test code = 2208) 11 MG/DL CREATININE (test code = 2214) 0.65 MG/DL eGFR (2020 CKD-EPI) (test 111 ML/MIN/1.73 code = 91809) CALC BUN/CREAT (test code = 17 RATIO 2235) SODIUM (test code = 2231) 145 MEQ/L POTASSIUM (test code = 2228) 4.2 MEQ/L CHLORIDE (test code = 2215) 107 MEQ/L CARBON DIOXIDE (test code = 26 MEQ/L 2205) CALCIUM (test code = 2209) 9.8 MG/DL PROTEIN, TOTAL (test code = 7.5 G/DL 2228) ALBUMIN (test code = 2201) 4.5 G/DL CALC GLOBULIN (test code = 3.0 G/DL 2240) CALC A/G RATIO (test code = 1.5 RATIO 2234) BILIRUBIN, TOTAL (test code = 0.5 MG/DL 2206) ALKALINE PHOSPHATASE (test 62 U/L code = 2204) AST (test code = 2218) 24 U/L ALT (test code = 2219) 38 U/L COMPREHENSIVE METABOLIC [id number] 00:00:00 Test Item Value Reference Range Interpretation Comments GLUCOSE (test code = 2217) 122 MG/DL BUN (test code = 2208) 11 MG/DL CREATININE (test code = 2214) 0.65 MG/DL eGFR (2020 CKD-EPI) (test 111 ML/MIN/1.73 code = 22621) CALC BUN/CREAT (test code = 17 RATIO 2235) SODIUM (test code = 2231) 145 MEQ/L POTASSIUM (test code = 2228) 4.2 MEQ/L CHLORIDE (test code = 2215) 107 MEQ/L CARBON DIOXIDE (test code = 26 MEQ/L 2205) CALCIUM (test code = 2209) 9.8 MG/DL PROTEIN, TOTAL (test code = 7.5 G/DL 2228) ALBUMIN (test code = 2201) 4.5 G/DL CALC GLOBULIN (test code = 3.0 G/DL 2240) CALC A/G RATIO (test code = 1.5 RATIO 2234) BILIRUBIN, TOTAL (test code = 0.5 MG/DL 2206) ALKALINE PHOSPHATASE (test 62 U/L code = 2204) AST (test code = 2218) 24 U/L ALT (test code = 2219) 38 U/L LIPID [id number] 00:00:00 Test Item Value Reference Range Interpretation Comments CHOLESTEROL (test code = 2210) 169 MG/DL TRIGLYCERIDES (test code = 2232) 346 MG/DL HDL CHOLESTEROL (test code = 2220) 32 MG/DL CALC LDL CHOL (test code = 2237) 91 MG/DL RISK RATIO LDL/HDL (test code = 2.84 RATIO 2238) LIPID [id number] 00:00:00 Test Item Value Reference Range Interpretation Comments CHOLESTEROL (test code = 2210) 169 MG/DL TRIGLYCERIDES (test code = 2232) 346 MG/DL HDL CHOLESTEROL (test code = 2220) 32 MG/DL CALC LDL CHOL (test code = 2237) 91 MG/DL RISK RATIO LDL/HDL (test code = 2.84 RATIO 2238) HEMOGLOBIN [id number] 00:00:00 Test Item Value Reference Range Interpretation Comments HEMOGLOBIN A1c (test code = 60442) 10.9 % HEMOGLOBIN [id number] 00:00:00 Test Item Value Reference Range Interpretation Comments HEMOGLOBIN A1c (test code = 00597) 10.9 % HEMOGLOBIN [id number] 00:00:00 Test Item Value Reference Range Interpretation Comments HEMOGLOBIN A1c (test code = 23890) 10.9 % VITAMIN D, 25 [id number] 04:13:44 Test Item Value Reference Range Interpretation Comments VITAMIN D, 25 OH 18 NG/ML SEE BELOW L NOTE: 25-H YDROXYVITAMIN D (test code = 4958) ASSAY INC LUDES 25-HYDROXYVITAM IN D2 AND D3. METHODOLOGY IS CHEMILUMINESCEN T IMMUNOASSAY. INTERPRETIVE RA NGES PEDIATRIC (<17 YEARS) . . . . . . . . . . . NG/ML 20-100ADULT: I NSUFFICIENT . . . . . . . . . . . . . . NG/ML <20 SUBOP TIMAL . . . . . . . . . . . . . . . NG/ML 20-29 OPT IMAL . . . . . . . . . . . . . . . . . NG/ML 30-100 U NLESS OTHERWISE INDIC ATED, ALL TESTING PERFORM [facility], I OR. [address] [place] [address] LABORATORY DIRE CTOR: Carlos Enrique BERNARD. CLIA NUMBER [id number] CAP ACCREDITATION N O. [id number] HIV 1/2 4TH GEN, RFLX [id number] 03:26:41 Test Item Value Reference Range Interpretation Comments HIV 1/2 4TH GEN, RFLX CONF (test NON-REACTIVE NON-REACTIVE code = 3514) ALBUMIN, URINE, [id number] 02:46:02 Test Item Value Reference Range Interpretation Comments ALBUMIN, URINE, RANDOM (test code 10.2 MG/DL NOT ESTAB = 94102) MICROALBUMIN, [id number] 00:00:00 Test Item Value Reference Range Interpretation Comments ALBUMIN, URINE, RANDOM (test code 10.2 MG/DL = 84318) MICROALBUMIN, [id number] 00:00:00 Test Item Value Reference Range Interpretation Comments ALBUMIN, URINE, RANDOM (test code 10.2 MG/DL = 42737) HIV AB/AG COMBO RFLX [id number] 00:00:00 Test Item Value Reference Range Interpretation Comments HIV 1/2 4TH GEN, RFLX CONF (test NON-REACTIVE code = 3514) HIV AB/AG COMBO RFLX [id number] 00:00:00 Test Item Value Reference Range Interpretation Comments HIV 1/2 4TH GEN, RFLX CONF (test NON-REACTIVE code = 3514) VITAMIN D, 25 [id number] 00:00:00 Test Item Value Reference Range Interpretation Comments VITAMIN D, 25 OH (test code = 4958) 18 NG/ML VITAMIN D, 25 [id number] 00:00:00 Test Item Value Reference Range Interpretation Comments VITAMIN D, 25 OH (test code = 4958) 18 NG/ML MICROALBUMIN, [id number] 00:00:00 Test Item Value Reference Range Interpretation Comments ALBUMIN, URINE, RANDOM (test code 10.2 MG/DL = 52658) MICROALBUMIN, [id number] 00:00:00 Test Item Value Reference Range Interpretation Comments ALBUMIN, URINE, RANDOM (test code 10.2 MG/DL = 24629) HIV AB/AG COMBO RFLX [id number] 00:00:00 Test Item Value Reference Range Interpretation Comments HIV 1/2 4TH GEN, RFLX CONF (test NON-REACTIVE code = 3514) HIV AB/AG COMBO RFLX [id number] 00:00:00 Test Item Value Reference Range Interpretation Comments HIV 1/2 4TH GEN, RFLX CONF (test NON-REACTIVE code = 3514) VITAMIN D, 25 [id number] 00:00:00 Test Item Value Reference Range Interpretation Comments VITAMIN D, 25 OH (test code = 4958) 18 NG/ML VITAMIN D, 25 [id number] 00:00:00 Test Item Value Reference Range Interpretation Comments VITAMIN D, 25 OH (test code = 4958) 18 NG/ML MICROALBUMIN, [id number] 00:00:00 Test Item Value Reference Range Interpretation Comments ALBUMIN, URINE, RANDOM (test code 10.2 MG/DL = 60724) MICROALBUMIN, [id number] 00:00:00 Test Item Value Reference Range Interpretation Comments ALBUMIN, URINE, RANDOM (test code 10.2 MG/DL = 43622) HIV AB/AG COMBO RFLX [id number] 00:00:00 Test Item Value Reference Range Interpretation Comments HIV 1/2 4TH GEN, RFLX CONF (test NON-REACTIVE code = 3514) HIV AB/AG COMBO RFLX [id number] 00:00:00 Test Item Value Reference Range Interpretation Comments HIV 1/2 4TH GEN, RFLX CONF (test NON-REACTIVE code = 3514) VITAMIN D, 25 [id number] 00:00:00 Test Item Value Reference Range Interpretation Comments VITAMIN D, 25 OH (test code = 4958) 18 NG/ML VITAMIN D, 25 [id number] 00:00:00 Test Item Value Reference Range Interpretation Comments VITAMIN D, 25 OH (test code = 4958) 18 NG/ML MICROALBUMIN, [id number] 00:00:00 Test Item Value Reference Range Interpretation Comments ALBUMIN, URINE, RANDOM (test code 10.2 MG/DL = 76382) HIV AB/AG COMBO RFLX [id number] 00:00:00 Test Item Value Reference Range Interpretation Comments HIV 1/2 4TH GEN, RFLX CONF (test NON-REACTIVE code = 3514) VITAMIN D, 25 [id number] 00:00:00 Test Item Value Reference Range Interpretation Comments VITAMIN D, 25 OH (test code = 4958) 18 NG/ML LIPID [id number] 02:15:07 Test Item Value Reference Range Interpretation [...] MOREINFORMATION , SEE CLIENT ANNOUNCE MENT AT [email or web address] CalcLDL-C RISK RATIO LDL/HDL (NOTE) RATIO <3.22 UNABLE TO CALCULATE (test code = 2238) COMPREHENSIVE METABOLIC [id number] 02:15:07 Test Item Value Reference Range Interpretation Comments GLUCOSE (test code = 349 MG/DL 70-99 H 2216) BUN (test code = 17 MG/DL 6-20 2207) CREATININE (test 0.80 MG/DL 0.60-1.30 code = 2214) eGFR (2020 CKD-EPI) 94 ML/MIN/1.73 >60 (test code = 66875) CALC BUN/CREAT (test 21 RATIO 6-28 code = 223) SODIUM (test code = 137 MEQ/L 614-026 0435) POTASSIUM (test code 4.2 MEQ/L 3.5-5.4 = 2227) CHLORIDE (test code 99 MEQ/L 95-107 = 2214) CARBON DIOXIDE (test 16 MEQ/L 19-31 L code = 2205) CALCIUM (test code = 10.0 MG/DL 8.5-10.5 2208) PROTEIN, TOTAL (test 7.8 G/DL 6.1-8.3 code = 2228) ALBUMIN (test code = 4.8 G/DL 3.5-5.2 2200) CALC GLOBULIN (test 3.0 G/DL 1.9-3.7 code = 224) CALC A/G RATIO (test 1.6 RATIO 1.0-2.6 code = 223) BILIRUBIN, TOTAL 0.2 MG/DL See_Comment [Automated message] (test code = 2206) The syste [employer] which generated this result transmit faith reference range : <=1.2. The refe rence range was not u sed to interpret th is result as normal/abnormal . ALKALINE PHOSPHATASE 69 U/L 40-113 (test code = 2203) AST (test code = 21 U/L 9-40 2217) ALT (test code = 39 U/L 5-40 2218) LIPID [id number] 00:00:00 Test Item Value Reference Range Interpretation Comments CHOLESTEROL (test code = 2210) 206 MG/DL TRIGLYCERIDES (test code = 2232) 1120 MG/DL HDL CHOLESTEROL (test code = 24 MG/DL 0) CALC LDL CHOL (test code = 2237) (NOTE) MG/DL RISK RATIO LDL/HDL (test code = (NOTE) RATIO 2238) LIPID [id number] 00:00:00 Test Item Value Reference Range Interpretation Comments CHOLESTEROL (test code = 2210) 206 MG/DL TRIGLYCERIDES (test code = 2232) 1120 MG/DL HDL CHOLESTEROL (test code = 24 MG/DL 0) CALC LDL CHOL (test code = 2237) (NOTE) MG/DL RISK RATIO LDL/HDL (test code = (NOTE) RATIO 2238) COMPREHENSIVE METABOLIC [id number] 00:00:00 Test Item Value Reference Range Interpretation Comments GLUCOSE (test code = 2217) 349 MG/DL BUN (test code = 2208) 17 MG/DL CREATININE (test code = 2214) 0.80 MG/DL eGFR (2020 CKD-EPI) (test code 94 ML/MIN/1.73 = 74670) CALC BUN/CREAT (test code = 21 RATIO 2235) SODIUM (test code = 2231) 137 MEQ/L POTASSIUM (test code = 2228) 4.2 MEQ/L CHLORIDE (test code = 2215) 99 MEQ/L CARBON DIOXIDE (test code = 16 MEQ/L 2206) CALCIUM (test code = 2209) 10.0 MG/DL PROTEIN, TOTAL (test code = 7.8 G/DL 222) ALBUMIN (test code = 2201) 4.8 G/DL CALC GLOBULIN (test code = 3.0 G/DL 2240) CALC A/G RATIO (test code = 1.6 RATIO 2234) BILIRUBIN, TOTAL (test code = 0.2 MG/DL 2206) ALKALINE PHOSPHATASE (test 69 U/L code = 2204) AST (test code = 2218) 21 U/L ALT (test code = 2219) 39 U/L COMPREHENSIVE METABOLIC [id number] 00:00:00 Test Item Value Reference Range Interpretation Comments GLUCOSE (test code = 2217) 349 MG/DL BUN (test code = 2208) 17 MG/DL CREATININE (test code = 2214) 0.80 MG/DL eGFR (2020 CKD-EPI) (test code 94 ML/MIN/1.73 = 40387) CALC BUN/CREAT (test code = 21 RATIO 2235) SODIUM (test code = 2231) 137 MEQ/L POTASSIUM (test code = 2228) 4.2 MEQ/L CHLORIDE (test code = 2215) 99 MEQ/L CARBON DIOXIDE (test code = 16 MEQ/L 2206) CALCIUM (test code = 2209) 10.0 MG/DL PROTEIN, TOTAL (test code = 7.8 G/DL 222) ALBUMIN (test code = 2201) 4.8 G/DL CALC GLOBULIN (test code = 3.0 G/DL 2240) CALC A/G RATIO (test code = 1.6 RATIO 2234) BILIRUBIN, TOTAL (test code = 0.2 MG/DL 2206) ALKALINE PHOSPHATASE (test 69 U/L code = 2204) AST (test code = 2218) 21 U/L ALT (test code = 2219) 39 U/L LIPID [id number] 00:00:00 Test Item Value Reference Range Interpretation Comments CHOLESTEROL (test code = 2210) 206 MG/DL TRIGLYCERIDES (test code = 2232) 1120 MG/DL HDL CHOLESTEROL (test code = 24 MG/DL 2220) CALC LDL CHOL (test code = 2237) (NOTE) MG/DL RISK RATIO LDL/HDL (test code = (NOTE) RATIO 2238) LIPID [id number] 00:00:00 Test Item Value Reference Range Interpretation Comments CHOLESTEROL (test code = 2210) 206 MG/DL TRIGLYCERIDES (test code = 2232) 1120 MG/DL HDL CHOLESTEROL (test code = 24 MG/DL 2220) CALC LDL CHOL (test code = 2237) (NOTE) MG/DL RISK RATIO LDL/HDL (test code = (NOTE) RATIO 2238) COMPREHENSIVE METABOLIC [id number] 00:00:00 Test Item Value Reference Range Interpretation Comments GLUCOSE (test code = 2217) 349 MG/DL BUN (test code = 2208) 17 MG/DL CREATININE (test code = 2214) 0.80 MG/DL eGFR (2020 CKD-EPI) (test code 94 ML/MIN/1.73 = 65601) CALC BUN/CREAT (test code = 21 RATIO [...] CALC GLOBULIN (test code = 3.0 G/DL 2239) CALC A/G RATIO (test code = 1.6 RATIO 2234) BILIRUBIN, TOTAL (test code = 0.2 MG/DL 2206) ALKALINE PHOSPHATASE (test 69 U/L code = 2204) AST (test code = 2218) 21 U/L ALT (test code = 2219) 39 U/L COMPREHENSIVE METABOLIC [id number] 00:00:00 Test Item Value Reference Range Interpretation Comments GLUCOSE (test code = 2217) 349 MG/DL BUN (test code = 2208) 17 MG/DL CREATININE (test code = 2214) 0.80 MG/DL eGFR (2020 CKD-EPI) (test code 94 ML/MIN/1.73 = 99224) CALC BUN/CREAT (test code = 21 RATIO [...] CALC GLOBULIN (test code = 3.0 G/DL 224) CALC A/G RATIO (test code = 1.6 RATIO 2234) BILIRUBIN, TOTAL (test code = 0.2 MG/DL 2206) ALKALINE PHOSPHATASE (test 69 U/L code = 2204) AST (test code = 2218) 21 U/L ALT (test code = 2219) 39 U/L LIPID [id number] 00:00:00 Test Item Value Reference Range Interpretation Comments CHOLESTEROL (test code = 2210) 206 MG/DL TRIGLYCERIDES (test code = 2232) 1120 MG/DL HDL CHOLESTEROL (test code = 24 MG/DL 2220) CALC LDL CHOL (test code = 2237) (NOTE) MG/DL RISK RATIO LDL/HDL (test code = (NOTE) RATIO 2238) LIPID [id number] 00:00:00 Test Item Value Reference Range Interpretation Comments CHOLESTEROL (test code = 2210) 206 MG/DL TRIGLYCERIDES (test code = 2232) 1120 MG/DL HDL CHOLESTEROL (test code = 24 MG/DL 2220) CALC LDL CHOL (test code = 2237) (NOTE) MG/DL RISK RATIO LDL/HDL (test code = (NOTE) RATIO 2238) COMPREHENSIVE METABOLIC [id number] 00:00:00 Test Item Value Reference Range Interpretation Comments GLUCOSE (test code = 2217) 349 MG/DL BUN (test code = 2208) 17 MG/DL CREATININE (test code = 2214) 0.80 MG/DL eGFR (2020 CKD-EPI) (test code 94 ML/MIN/1.73 = 37409) CALC BUN/CREAT (test code = 21 RATIO [...] CALC GLOBULIN (test code = 3.0 G/DL 2239) CALC A/G RATIO (test code = 1.6 RATIO 2234) BILIRUBIN, TOTAL (test code = 0.2 MG/DL 2206) ALKALINE PHOSPHATASE (test 69 U/L code = 2203) AST (test code = 2218) 21 U/L ALT (test code = 2219) 39 U/L COMPREHENSIVE METABOLIC [id number] 00:00:00 Test Item Value Reference Range Interpretation Comments GLUCOSE (test code = 2217) 349 MG/DL BUN (test code = 2208) 17 MG/DL CREATININE (test code = 2214) 0.80 MG/DL eGFR (2020 CKD-EPI) (test code 94 ML/MIN/1.73 = 30327) CALC BUN/CREAT (test code = 21 RATIO [...] CALC GLOBULIN (test code = 3.0 G/DL 224) CALC A/G RATIO (test code = 1.6 RATIO 2234) BILIRUBIN, TOTAL (test code = 0.2 MG/DL 2206) ALKALINE PHOSPHATASE (test 69 U/L code = 2204) AST (test code = 2218) 21 U/L ALT (test code = 2219) 39 U/L LIPID [id number] 00:00:00 Test Item Value Reference Range Interpretation Comments CHOLESTEROL (test code = 2210) 206 MG/DL TRIGLYCERIDES (test code = 2232) 1120 MG/DL HDL CHOLESTEROL (test code = 24 MG/DL 2220) CALC LDL CHOL (test code = 2237) (NOTE) MG/DL RISK RATIO LDL/HDL (test code = (NOTE) RATIO 2238) COMPREHENSIVE METABOLIC [id number] 00:00:00 Test Item Value Reference Range Interpretation Comments GLUCOSE (test code = 2217) 349 MG/DL BUN (test code = 2208) 17 MG/DL CREATININE (test code = 2214) 0.80 MG/DL eGFR (2020 CKD-EPI) (test code 94 ML/MIN/1.73 = 46113) CALC BUN/CREAT (test code = 21 RATIO [...] RATIO 2234) BILIRUBIN, TOTAL (test code = 0.2 MG/DL 2206) ALKALINE PHOSPHATASE (test 69 U/L code = 2204) AST (test code = 2218) 21 U/L ALT (test code = 2219) 39 U/L HEMOGLOBIN [id number] 04:43:57 Test Item Value Reference Range Interpretation Comments HEMOGLOBIN A1c (test 11.5 % 4.2-5.6 H [employer] AN DIABETES code = 37483) ASSOCIATION [employer] FOR HGB A1C: PREDIABETES/INC REASED [...] ATE TESTING OR LABORATORY C ONSULTATION. HEMOGLOBIN [id number] 00:00:00 Test Item Value Reference Range Interpretation Comments HEMOGLOBIN A1c (test code = 55586) 11.5 % HEMOGLOBIN [id number] 00:00:00 Test Item Value Reference Range Interpretation Comments HEMOGLOBIN A1c (test code = 08922) 11.5 % HEMOGLOBIN [id number] 00:00:00 Test Item Value Reference Range Interpretation Comments HEMOGLOBIN A1c (test code = 85003) 11.5 % HEMOGLOBIN [id number] 00:00:00 Test Item Value Reference Range Interpretation Comments HEMOGLOBIN A1c (test code = 71226) 11.5 % HEMOGLOBIN [id number] 00:00:00 Test Item Value Reference Range Interpretation Comments HEMOGLOBIN A1c (test code = 23912) 11.5 % HEMOGLOBIN [id number] 00:00:00 Test Item Value Reference Range Interpretation Comments HEMOGLOBIN A1c (test code = 06426) 11.5 % HEMOGLOBIN [id number] 00:00:00 Test Item Value Reference Range Interpretation Comments HEMOGLOBIN A1c (test code = 38061) 11.5 % HEMOGLOBIN [id number] 00:00:00 Test Item Value Reference Range Interpretation Comments HEMOGLOBIN A1c (test code = 70446) 11.5 % HEMOGLOBIN [id number] 00:00:00 Test Item Value Reference Range Interpretation Comments HEMOGLOBIN A1c (test code = 56465) 11.5 % HEMOGLOBIN [id number] 00:00:00 Test Item Value Reference Range Interpretation Comments HEMOGLOBIN A1c (test code = 74957) 11.5 % HEMOGLOBIN [id number] 00:00:00 Test Item Value Reference Range Interpretation Comments HEMOGLOBIN A1c (test code = 23654) 11.5 % CULTURE, [id number] 11:34:56SPECIMEN NUMBER: [id number] CULTURE, URINE SPECIMEN NUMBER: [id number] SPECIMEN COMMENT: URINE SOURCE:URINE REPORT STATUS: FINAL FINAL REPORT: 10/25/2021 10-50,000 CFU/ML UROGENITAL NORMA PRESENT NO COMM ON PATHOGENSCULTURE, [id number] 00:00:00 Test Item Value Reference Range Interpretation Comments CULTURE, URINE (test SPECIMEN NUMBER: code = 56287) [id number] CULTURE, [id number] 00:00:00 Test Item Value Reference Range Interpretation Comments CULTURE, URINE (test SPECIMEN NUMBER: code = 69249) [id number] CULTURE, [id number] 00:00:00 Test Item Value Reference Range Interpretation Comments CULTURE, URINE (test SPECIMEN NUMBER: code = 23096) [id number] CULTURE, [id number] 00:00:00 Test Item Value Reference Range Interpretation Comments CULTURE, URINE (test SPECIMEN NUMBER: code = 24501) [id number] CULTURE, [id number] 00:00:00 Test Item Value Reference Range Interpretation Comments CULTURE, URINE (test SPECIMEN NUMBER: code = 12500) [id number] CULTURE, [id number] 00:00:00 Test Item Value Reference Range Interpretation Comments CULTURE, URINE (test SPECIMEN NUMBER: code = 81956) [id number] CULTURE, [id number] 00:00:00 Test Item Value Reference Range Interpretation Comments CULTURE, URINE (test SPECIMEN NUMBER: code = 13366) [id number] VAGINAL PATHOGENS DNA [id number] 11:55:20 Test Item Value Reference Range Interpretation Comments ANDIE SPECIES (test NEGATIVE NEGATIVE code = ) G. VAGINALIS (test NEGATIVE NEGATIVE code = 92753) T. VAGINALIS (test NEGATIVE NEGATIVE UNLESS O THERWISE code = 19683) INDICATED, ALL TESTING PERFORMED [facility] [address] [place] [address] 4 LABORATORY DIRE CTOR: NOAH TODD M.D. CLIA NUMBER [id number] [facility] [place] [id number] VAGINAL PATHOGENS DNA [id number] 00:00:00 Test Item Value Reference Range Interpretation Comments ANDIE SPECIES (test code = 34230) NEGATIVE G. VAGINALIS (test code = 48687) NEGATIVE T. VAGINALIS (test code = 08712) NEGATIVE VAGINAL PATHOGENS DNA [id number] 00:00:00 Test Item Value Reference Range Interpretation Comments ANDIE SPECIES (test code = 67356) NEGATIVE G. VAGINALIS (test code = 15457) NEGATIVE T. VAGINALIS (test code = 08939) NEGATIVE VAGINAL PATHOGENS DNA [id number] 00:00:00 Test Item Value Reference Range Interpretation Comments ANDIE SPECIES (test code = 79113) NEGATIVE G. VAGINALIS (test code = 58208) NEGATIVE T. VAGINALIS (test code = 55664) NEGATIVE VAGINAL PATHOGENS DNA [id number] 00:00:00 Test Item Value Reference Range Interpretation Comments ANDIE SPECIES (test code = 74687) NEGATIVE G. VAGINALIS (test code = 15428) NEGATIVE T. VAGINALIS (test code = 13819) NEGATIVE VAGINAL PATHOGENS DNA [id number] 00:00:00 Test Item Value Reference Range Interpretation Comments ANDIE SPECIES (test code = 56466) NEGATIVE G. VAGINALIS (test code = 34741) NEGATIVE T. VAGINALIS (test code = 92350) NEGATIVE VAGINAL PATHOGENS DNA [id number] 00:00:00 Test Item Value Reference Range Interpretation Comments ANDIE SPECIES (test code = 93450) NEGATIVE G. VAGINALIS (test code = 36476) NEGATIVE T. VAGINALIS (test code = 73366) NEGATIVE VAGINAL PATHOGENS DNA [id number] 00:00:00 Test Item Value Reference Range Interpretation Comments ANDIE SPECIES (test code = 31008) NEGATIVE G. VAGINALIS (test code = 72245) NEGATIVE T. VAGINALIS (test code = 65799) NEGATIVE POCT GLUCOSE (AUTOMATED)2021-10-17 01:51:54 Test Item Value Reference Range Interpretation Comments POCT GLU (test code = 9347318024) 365 mg/dL 70-110 H Lab Interpretation (test code = Abnormal 76752-3) [facility] GLUCOSE (AUTOMATED)2021-10-17 00:46:51 Test Item Value Reference Range Interpretation Comments POCT GLU (test code = 6277415491) 435 mg/dL 70-110 H Lab Interpretation (test code = Abnormal 24801-5) [facility] GLUCOSE(AGE >30DAYS)2021-10-17 00:41:00 Test Item Value Reference Range Interpretation Comments POCT Glu (age>30days) (test code = 435 mg/dL 70-110 A 3342) Lab Interpretation (test code = Abnormal 80259-6) [id number]42 Test Item Value Reference Interpretation Comments Range TROPONIN I (test 0.001 ng/mL See_Comment [Automated code = 3690592513) message] The system which generated this result [...] biotin. Lab Interpretation Normal (test code = 96530-1) [id number] 23:37:40 Test Item Value Reference Range Interpretation Comments NT-proBNP (test code 20 pg/mL See_Comment [Autom ated = [id number]) message] The system which generated this result transmitted reference range : <=125. The reference range was not used to interpret this result as normal/abnormal . CALVIN (test code = CALVIN) Biotin has been reported to cause a negative bias, interpret results relative to patient's use of biotin. Lab Interpretation Normal (test code = 56782-2) [facility] (72873)2021-10-16 23:29:18 Test Item Value Reference Range Interpretation Comments NA (test code = 134 mmol/L 135-145 L [id number]) K (test code = 4.4 mmol/L 3.5-5.0 1260007239) CL (test code = 97 mmol/L 98-108 L 8114085835) CO2 TOTAL (test code = 23 mmol/L 23-31 1625607470) AGAP (test code = 2-16 8986839079) BUN (test code = 21 mg/dL 7-23 5349946803) GLUCOSE (test code = 431 mg/dL 70-110 H 8593710931) CREATININE (test code = 0.88 mg/dL 0.50-1.04 4813196150) TOTAL BILI (test code = 0.5 mg/dL 0.1-1.2 2867342597) CALCIUM (test code = 9.2 mg/dL 8.6-10.6 1325034929) T PROTEIN (test code = 7.4 g/dL 6.3-8.2 6759059404) ALBUMIN (test code = 4.7 g/dL 3.5-5.0 5434523327) ALK PHOS (test code = 52 U/L 34-122 2762281056) ALTv (test code = 30 U/L 5-35 1742-6) AST(SGOT) (test code = 25 U/L 13-40 5134103079) eGFR (test code = mL/min/1.73m2 1028212132) CALVIN (test code = CALVIN) Association of [...] tests). Lab Interpretation Abnormal (test code = 27630-1) [facility] WITH [id number] 23:20:10 Test Item Value Reference Range Interpretation [...] RDW-SD (test code = 40.5 fL 39.0-49.9 13983-6) RDW-CV (test code = 13.5 % 12.0-15.5 788-0) PLT (test code = See_Comment [Automated 777-3) message] The sy stem which generated this result transmitted reference range : 166 - 358 10*3/ ?L. The reference r doretha was not used to interpret this result as normal/abnormal . MPV (test code = 9.6 fL 9.5-12.9 62806-8) NRBC/100 WBC (test See_Comment [Automat ed code = 2672453394) message] The system which generated this result transmitted reference range : 0.0 - 10.0 /100 WBCs. The refer ence range was not u sed to interpret th is result as normal/abnormal . NRBC x10^3 (test code <0.01 See_Comment [Auto mated = 5104001330) message] The s ystem which generated this result transmitted reference range : 10*3/?L. The reference range was not used to interpret this result as normal/abnormal . GRAN MAT (NEUT) % 43.2 % (test code = 770-8) IMM GRAN % (test code 0.70 % = 2502310241) LYMPH % (test code = 42.8 % 736-9) MONO % (test code = 9.2 % 5905-5) EOS % (test code = 3.0 % 713-8) BASO % (test code = 1.1 % 706-2) GRAN MAT x10^3(ANC) 3.15 10*3/uL 1.88-7.09 (test code = 5158447581) IMM GRAN x10^3 (test 0.05 10*3/uL 0.00-0.06 code = 3073200489) LYMPH x10^3 (test code 3.12 10*3/uL 1.32-3.29 = 731-0) MONO x10^3 (test code 0.67 10*3/uL 0.33-0.92 = 742-7) EOS x10^3 (test code = 0.22 10*3/uL 0.03-0.39 711-2) BASO x10^3 (test code 0.08 10*3/uL 0.01-0.07 H = 704-7) Lab Interpretation Abnormal (test code = 13614-6) [facility] [id number] 23:09:32 Test Item Value Reference Range Interpretation Comments LACTIC ACID (test code = 1.94 mmol/L 0.50-2.20 6834627708) Lab Interpretation (test code = Normal 03782-4) [facility] [id number] 22:34:00 Test Item Value Reference Range Interpretation Comments POCT PREG (test code = 1605) Negative On board controls acceptable with Present C Line (test code = 3574) POCT PREG LOT # (test code = 3575) [id number] POCT PREG TEST DATE (test 2023-04-09 code = 3576) Lab Interpretation (test code = Normal 73264-5) [facility], [id number] 08:52:36SPECIMEN NUMBER: [id number] CULTURE, URINE SPECIMEN NUMBER: [id number] SPECIMEN COMMENT: URINE SOURCE:URINE REPORT STATUS: FINAL FINAL REPORT: 10/12/2021 >100,000 CFU/ML UROGENITAL NORMA PRESENT NO COMMON PATHOGENS UNLESS OTHERWISE INDICATED, ALL TESTING PERFORMED [facility] [address] [place] [address] UNDERWRITING ACCOUNT REPRESENTATIVE: NOHA DICKENS M.D. CLIA NUMBER [id number] [facility] [place]. [id number], [id number] 00:00:00 Test Item Value Reference Range Interpretation Comments CULTURE, URINE (test SPECIMEN NUMBER: code = 28650) [id number] CULTURE, [id number] 00:00:00 Test Item Value Reference Range Interpretation Comments CULTURE, URINE (test SPECIMEN NUMBER: code = 68498) [id number] CULTURE, [id number] 00:00:00 Test Item Value Reference Range Interpretation Comments CULTURE, URINE (test SPECIMEN NUMBER: code = 13822) [id number] CULTURE, [id number] 00:00:00 Test Item Value Reference Range Interpretation Comments CULTURE, URINE (test SPECIMEN NUMBER: code = 23186) [id number] CULTURE, [id number] 00:00:00 Test Item Value Reference Range Interpretation Comments CULTURE, URINE (test SPECIMEN NUMBER: code = 33841) [id number] CULTURE, [id number] 00:00:00 Test Item Value Reference Range Interpretation Comments CULTURE, URINE (test SPECIMEN NUMBER: code = 94222) [id number] CULTURE, [id number] 00:00:00 Test Item Value Reference Range Interpretation Comments CULTURE, URINE (test SPECIMEN NUMBER: code = 80230) [id number] URINE CULTURE, NO [id number] 09:46:36SPECIMEN NUMBER: [id number] URINE CULTURE, NO SENS SPECIMEN NUMBER: [id number] SPECIMEN COMMENT: URINESOURCE: URINE REPORT STATUS: FINAL FINAL REPORT: 10/08/2021 50-100,000 CFU/ML UROGENITAL NORMA PRESENT NO COMMON PATHOGENSURINE CULTURE, NO [id number] 00:00:00 Test Item Value Reference Range Interpretation Comments URINE CULTURE, NO SPECIMEN NUMBER: SENS (test code = [id number] 61561) URINE CULTURE, NO [id number] 00:00:00 Test Item Value Reference Range Interpretation Comments URINE CULTURE, NO SPECIMEN NUMBER: SENS (test code = 144115996 78034) URINE CULTURE, NO [id number] 00:00:00 Test Item Value Reference Range Interpretation Comments URINE CULTURE, NO SPECIMEN NUMBER: SENS (test code = 376523260 71094) URINE CULTURE, NO [id number] 00:00:00 Test Item Value Reference Range Interpretation Comments URINE CULTURE, NO SPECIMEN NUMBER: SENS (test code = 963108039 78993) URINE CULTURE, NO [id number] 00:00:00 Test Item Value Reference Range Interpretation Comments URINE CULTURE, NO SPECIMEN NUMBER: SENS (test code = 627292834 61360) URINE CULTURE, NO [id number] 00:00:00 Test Item Value Reference Range Interpretation Comments URINE CULTURE, NO SPECIMEN NUMBER: SENS (test code = 561915497 29206) URINE CULTURE, NO [id number] 00:00:00 Test Item Value Reference Range Interpretation Comments URINE CULTURE, NO SPECIMEN NUMBER: SENS (test code = 852454883 30161) CBC W/AUTO DIFF WITH [id number] 07:54:02 Test Item Value Reference Range Interpretation [...] RBCS 0.00 K/UL 0.00-0.11 (test code = 57645) COMPREHENSIVE METABOLIC [id number] 05:34:02 Test Item Value Reference Range Interpretation Comments GLUCOSE (test code = 108 MG/DL 70-99 H 2216) BUN (test code = 17 MG/DL 6-20 2207) CREATININE (test 0.84 MG/DL 0.60-1.30 code = 221) eGFR (2020 CKD-EPI) 88 >60 (test code = 73337) ML/MIN/1.73 CALC BUN/CREAT (test 20 RATIO 6-28 code = 2235) SODIUM (test code = 141 MEQ/L 695-711 7471) POTASSIUM (test code 4.0 MEQ/L 3.5-5.4 = [...] PHOSPHATASE 51 U/L 40-113 (test code = 4) AST (test code = 22 U/L 9-40 8) ALT (test code = 28 U/L 5-40 UNLESS OTH ERWISE 9) INDICATED, ALL TESTING PERFORM [facility] [place] [address] [place] [address] [facility] DIRECTOR: NOAH DICKENS M.D. CLIA NUMBER [id number] CAP ACCREDITATION N O. [id number] CBC W/AUTO [id number] 00:00:00 Test Item Value Reference Range Interpretation [...] NUCLEATED RBCS (test code = 0.00 K/UL 21845) CBC W/AUTO [id number] 00:00:00 Test Item Value Reference Range Interpretation [...] NUCLEATED RBCS (test code = 0.00 K/UL 50866) CBC W/AUTO [id number] 00:00:00 Test Item Value Reference Range Interpretation [...] NUCLEATED RBCS (test code = 0.00 K/UL 10088) COMPREHENSIVE METABOLIC [id number] 00:00:00 Test Item Value Reference Range Interpretation Comments GLUCOSE (test code = 2217) 108 MG/DL BUN (test code = 2208) 17 MG/DL CREATININE (test code = 2214) 0.84 MG/DL eGFR (2020 CKD-EPI) (test code 88 ML/MIN/1.73 = 36584) CALC BUN/CREAT (test code = 20 RATIO [...] RATIO 2234) BILIRUBIN, TOTAL (test code = <0.2 MG/DL 2206) ALKALINE PHOSPHATASE (test 51 U/L code = 2204) AST (test code = 2218) 22 U/L ALT (test code = 2219) 28 U/L COMPREHENSIVE METABOLIC [id number] 00:00:00 Test Item Value Reference Range Interpretation Comments GLUCOSE (test code = 2217) 108 MG/DL BUN (test code = 2208) 17 MG/DL CREATININE (test code = 2214) 0.84 MG/DL eGFR (2020 CKD-EPI) (test code 88 ML/MIN/1.73 = 60892) CALC BUN/CREAT (test code = 20 RATIO 2234) SODIUM (test code = 2231) 141 MEQ/L [...] ALT (test code = 2219) 28 U/L CBC W/AUTO [id number] 00:00:00 Test Item Value Reference Range Interpretation [...] NUCLEATED RBCS (test code = 0.00 K/UL 82916) CBC W/AUTO [id number] 00:00:00 Test Item Value Reference Range Interpretation [...] NUCLEATED RBCS (test code = 0.00 K/UL 44889) CBC W/AUTO [id number] 00:00:00 Test Item Value Reference Range Interpretation [...] NUCLEATED RBCS (test code = 0.00 K/UL 32017) COMPREHENSIVE METABOLIC [id number] 00:00:00 Test Item Value Reference Range Interpretation Comments GLUCOSE (test code = 2217) 108 MG/DL BUN (test code = 2208) 17 MG/DL CREATININE (test code = 2214) 0.84 MG/DL eGFR (2020 CKD-EPI) (test code 88 ML/MIN/1.73 = 09788) CALC BUN/CREAT (test code = 20 RATIO 2235) SODIUM (test code = 2231) 141 MEQ/L POTASSIUM (test code = 2228) 4.0 MEQ/L CHLORIDE (test code = 2215) 100 MEQ/L CARBON DIOXIDE (test code = 23 MEQ/L 220) CALCIUM (test code = 2209) 10.3 MG/DL PROTEIN, TOTAL (test code = 7.6 G/DL 2228) ALBUMIN (test code = 2201) 4.7 G/DL CALC GLOBULIN (test code = 2.9 G/DL 2240) CALC A/G RATIO (test code = 1.6 RATIO 2234) BILIRUBIN, TOTAL (test code = <0.2 MG/DL 2206) ALKALINE PHOSPHATASE (test 51 U/L code = 2204) AST (test code = 2218) 22 U/L ALT (test code = 2219) 28 U/L COMPREHENSIVE METABOLIC [id number] 00:00:00 Test Item Value Reference Range Interpretation Comments GLUCOSE (test code = 2217) 108 MG/DL BUN (test code = 2208) 17 MG/DL CREATININE (test code = 2214) 0.84 MG/DL eGFR (2020 CKD-EPI) (test code 88 ML/MIN/1.73 = 15872) CALC BUN/CREAT (test code = 20 RATIO [...] ALT (test code = 2219) 28 U/L CBC W/AUTO [id number] 00:00:00 Test Item Value Reference Range Interpretation [...] NUCLEATED RBCS (test code = 0.00 K/UL 88683) CBC W/AUTO [id number] 00:00:00 Test Item Value Reference Range Interpretation [...] NUCLEATED RBCS (test code = 0.00 K/UL 48997) CBC W/AUTO [id number] 00:00:00 Test Item Value Reference Range Interpretation [...] NUCLEATED RBCS (test code = 0.00 K/UL 53151) COMPREHENSIVE METABOLIC [id number] 00:00:00 Test Item Value Reference Range Interpretation Comments GLUCOSE (test code = 2217) 108 MG/DL BUN (test code = 2208) 17 MG/DL CREATININE (test code = 2214) 0.84 MG/DL eGFR (2020 CKD-EPI) (test code 88 ML/MIN/1.73 = 64689) CALC BUN/CREAT (test code = 20 RATIO [...] RATIO 2234) BILIRUBIN, TOTAL (test code = <0.2 MG/DL 2206) ALKALINE PHOSPHATASE (test 51 U/L code = 2204) AST (test code = 2218) 22 U/L ALT (test code = 2219) 28 U/L COMPREHENSIVE METABOLIC [id number] 00:00:00 Test Item Value Reference Range Interpretation Comments GLUCOSE (test code = 2217) 108 MG/DL BUN (test code = 2208) 17 MG/DL CREATININE (test code = 2214) 0.84 MG/DL eGFR (2020 CKD-EPI) (test code 88 ML/MIN/1.73 = 85614) CALC BUN/CREAT (test code = 20 RATIO [...] RATIO 2234) BILIRUBIN, TOTAL (test code = <0.2 MG/DL 2206) ALKALINE PHOSPHATASE (test 51 U/L code = 2204) AST (test code = 2218) 22 U/L ALT (test code = 2219) 28 U/L CBC W/AUTO [id number] 00:00:00 Test Item Value Reference Range Interpretation [...] NUCLEATED RBCS (test code = 0.00 K/UL 93971) CBC W/AUTO [id number] 00:00:00 Test Item Value Reference Range Interpretation [...] NUCLEATED RBCS (test code = 0.00 K/UL 50512) COMPREHENSIVE METABOLIC [id number] 00:00:00 Test Item Value Reference Range Interpretation Comments GLUCOSE (test code = 2217) 108 MG/DL BUN (test code = 2208) 17 MG/DL CREATININE (test code = 2214) 0.84 MG/DL eGFR (2020 CKD-EPI) (test code 88 ML/MIN/1.73 = 34539) CALC BUN/CREAT (test code = 20 RATIO [...] = 2219) 28 U/L COMP. METABOLIC PANEL ([id number])[id number] 15:36:43 Test Item Value Reference Range Interpretation Comments NA (test code = 133 mmol/L 135-145 L 6368183842) K (test code = 4.8 mmol/L 3.5-5.0 8513763693) CL (test code = 96 mmol/L 98-108 L 0357684226) CO2 TOTAL (test code = 21 mmol/L 23-31 L 5908513738) AGAP (test code = 2-16 4129679876) BUN (test code = 30 mg/dL 7-23 H 7304947552) GLUCOSE (test code = 405 mg/dL 70-110 H 1501728833) CREATININE (test code = 0.74 mg/dL 0.50-1.04 0907663997) TOTAL BILI (test code = 0.6 mg/dL 0.1-1.6 5836863629) CALCIUM (test code = 9.7 mg/dL 8.6-10.6 9006997525) T PROTEIN (test code = 7.9 g/dL 6.3-8.2 5671939509) ALBUMIN (test code = 4.9 g/dL 3.5-5.0 5570390793) ALK PHOS (test code = 66 U/L 34-122 5826816506) ALTv (test code = 37 U/L 5-35 H 2-6) AST(SGOT) (test code = 31 U/L 13-40 5420109808) eGFR (test code = mL/min/1.73m2 7197099444) CALVIN (test code = CALVIN) Association of [...] tests). Lab Interpretation Abnormal (test code = 11452-6) [facility] WITH [id number] 15:26:02 Test Item Value Reference Range Interpretation [...] (test code = 38.2 fL 39.0-49.9 L 42319-4) RDW-CV (test code = 12.9 % 12.0-15.5 788-0) PLT (test code = See_Comment [Automated 777-3) message] The sy stem which generated this result transmitted reference range : 166 - 358 10*3/ ?L. The reference r doretha was not used to interpret this result as normal/abnormal . MPV (test code = 9.8 fL 9.5-12.9 66153-8) NRBC/100 WBC (test See_Comment [Automat ed code = 6910857556) message] The system which generated this result transmitted reference range : 0.0 - 10.0 /100 WBCs. The refer ence range was not u sed to interpret th is result as normal/abnormal . NRBC x10^3 (test code <0.01 See_Comment [Auto mated = 5210258880) message] The s ystem which generated this result transmitted reference range : 10*3/?L. The reference range was not used to interpret this result as normal/abnormal . GRAN MAT (NEUT) % 50.6 % (test code = 770-8) IMM GRAN % (test code 0.80 % = 5924350471) LYMPH % (test code = 37.0 % 736-9) MONO % (test code = 8.5 % 5905-5) EOS % (test code = 2.2 % 713-8) BASO % (test code = 0.9 % 706-2) GRAN MAT x10^3(ANC) 3.86 10*3/uL 1.88-7.09 (test code = 4026046007) IMM GRAN x10^3 (test 0.06 10*3/uL 0.00-0.06 code = 8176909317) LYMPH x10^3 (test code 2.83 10*3/uL 1.32-3.29 = 731-0) MONO x10^3 (test code 0.65 10*3/uL 0.33-0.92 = 742-7) EOS x10^3 (test code = 0.17 10*3/uL 0.03-0.39 711-2) BASO x10^3 (test code 0.07 10*3/uL 0.01-0.07 = 704-7) Lab Interpretation Abnormal (test code = 50970-7) [facility] [id number] 15:18:00 Test Item Value Reference Range Interpretation Comments POCT PREG (test code = 1605) negative On board controls acceptable with present C Line (test code = 3574) POCT PREG LOT # (test code = 3575) [id number] POCT PREG TEST DATE (test 09/07/2022 code = 3576) Lab Interpretation (test code = Normal 40973-8) [id number] 08:37:00 Test Item Value Reference Range Interpretation Comments GLUBED (test code = GLUBED) 260 mg/dL 60-125 H [id number] 06:42:00 Test Item Value Reference Range Interpretation Comments GLUBED (test code = GLUBED) 265 mg/dL 60-125 H COVID 19 Asymptomatic IH [id number] 17:24:00 Test Item Value Reference Range Interpretation Comments COVID 19 Asymptomatic IH AG (test NEGATIVE NEGATIVE code = COVNONPUIAG) COMPREHENSIVE METABOLIC [id number] 05:38:33 Test Item Value Reference Range Interpretation Comments GLUCOSE (test code = 411 MG/DL 70-99 H 2216) BUN (test code = 24 MG/DL 6-20 H 2207) CREATININE (test 1.13 MG/DL 0.60-1.30 code = 221) eGFR (2020 CKD-EPI) 62 ML/MIN/1.73 >60 (test code = 88843) CALC BUN/CREAT (test 21 RATIO 6-28 code = 223) SODIUM (test code = 136 MEQ/L 982-106 7416) POTASSIUM (test code 5.0 MEQ/L 3.5-5.4 = [...] = 49 U/L 5-40 H 2218) LIPID [id number] 05:38:33 Test Item Value Reference Range Interpretation [...] MOREINFORMATION , SEE CLIENT ANNOUNCE MENT AT [email or web address] CalcLDL-C RISK RATIO LDL/HDL 2.79 RATIO <3.22 UNABLE T O CALCULATE (test code = 223) UNLESS OT HERWISE INDICATED, ALL TESTING PERFORMED [facility] [email or web address] [address] [place] [address] 4 LABORATORY DIRE CTOR: NOAH TODD M.D. CLIA NUMBER [id number] [place] [id number] HEMOGLOBIN [id number] 03:55:33 Test Item Value Reference Range Interpretation Comments HEMOGLOBIN A1c (test 11.9 % 4.2-5.6 H [employer] AN DIABETES code = 45630) ASSOCIATION IDELINES FOR HGB A1C: PREDIABETES/INC REASED [...] TESTING OR LABORATORY C ONSULTATION. COMPREHENSIVE METABOLIC [id number] 00:00:00 Test Item Value Reference Range Interpretation Comments GLUCOSE (test code = 2217) 411 MG/DL BUN (test code = 2208) 24 MG/DL CREATININE (test code = 2214) 1.13 MG/DL eGFR (2020 CKD-EPI) (test code 62 ML/MIN/1.73 = 36236) CALC BUN/CREAT (test code = 21 RATIO 5) SODIUM (test code = 2231) 136 MEQ/L POTASSIUM (test code = 2228) 5.0 MEQ/L CHLORIDE (test code = 2215) 97 MEQ/L CARBON DIOXIDE (test code = 20 MEQ/L 2205) CALCIUM (test code = 2209) 10.3 MG/DL PROTEIN, TOTAL (test code = 8.3 G/DL 2228) ALBUMIN (test code = 2201) 4.8 G/DL CALC GLOBULIN (test code = 3.5 G/DL 2240) CALC A/G RATIO (test code = 1.4 RATIO 2234) BILIRUBIN, TOTAL (test code = 0.3 MG/DL 2206) ALKALINE PHOSPHATASE (test 61 U/L code = 2204) AST (test code = 2218) 38 U/L ALT (test code = 2219) 49 U/L COMPREHENSIVE METABOLIC [id number] 00:00:00 Test Item Value Reference Range Interpretation Comments GLUCOSE (test code = 2217) 411 MG/DL BUN (test code = 2208) 24 MG/DL CREATININE (test code = 2214) 1.13 MG/DL eGFR (2020 CKD-EPI) (test code 62 ML/MIN/1.73 = 52946) CALC BUN/CREAT (test code = 21 RATIO 2235) SODIUM (test code = 2231) 136 MEQ/L POTASSIUM (test code = 2228) 5.0 MEQ/L CHLORIDE (test code = 2215) 97 MEQ/L CARBON DIOXIDE (test code = 20 MEQ/L 6) CALCIUM (test code = 2209) 10.3 MG/DL PROTEIN, TOTAL (test code = 8.3 G/DL 2228) ALBUMIN (test code = 2201) 4.8 G/DL CALC GLOBULIN (test code = 3.5 G/DL 2240) CALC A/G RATIO (test code = 1.4 RATIO 2234) BILIRUBIN, TOTAL (test code = 0.3 MG/DL 2206) ALKALINE PHOSPHATASE (test 61 U/L code = 2204) AST (test code = 2218) 38 U/L ALT (test code = 2219) 49 U/L HEMOGLOBIN [id number] 00:00:00 Test Item Value Reference Range Interpretation Comments HEMOGLOBIN A1c (test code = 06420) 11.9 % HEMOGLOBIN [id number] 00:00:00 Test Item Value Reference Range Interpretation Comments HEMOGLOBIN A1c (test code = 46489) 11.9 % HEMOGLOBIN [id number] 00:00:00 Test Item Value Reference Range Interpretation Comments HEMOGLOBIN A1c (test code = 33789) 11.9 % LIPID [id number] 00:00:00 Test Item Value Reference Range Interpretation Comments CHOLESTEROL (test code = 2210) 176 MG/DL TRIGLYCERIDES (test code = 2232) 614 MG/DL HDL CHOLESTEROL (test code = 28 MG/DL 2220) CALC LDL CHOL (test code = 2237) (NOTE) MG/DL RISK RATIO LDL/HDL (test code = 2.79 RATIO 2238) LIPID [id number] 00:00:00 Test Item Value Reference Range Interpretation Comments CHOLESTEROL (test code = 2210) 176 MG/DL TRIGLYCERIDES (test code = 2232) 614 MG/DL HDL CHOLESTEROL (test code = 28 MG/DL 2220) CALC LDL CHOL (test code = 2237) (NOTE) MG/DL RISK RATIO LDL/HDL (test code = 2.79 RATIO 2238) COMPREHENSIVE METABOLIC [id number] 00:00:00 Test Item Value Reference Range Interpretation Comments GLUCOSE (test code = 2217) 411 MG/DL BUN (test code = 2208) 24 MG/DL CREATININE (test code = 2214) 1.13 MG/DL eGFR (2020 CKD-EPI) (test code 62 ML/MIN/1.73 = 72388) CALC BUN/CREAT (test code = 21 RATIO 2235) SODIUM (test code = 2231) 136 MEQ/L POTASSIUM (test code = 2228) 5.0 MEQ/L CHLORIDE (test code = 2215) 97 MEQ/L CARBON DIOXIDE (test code = 20 MEQ/L 2205) CALCIUM (test code = 2209) 10.3 MG/DL PROTEIN, TOTAL (test code = 8.3 G/DL 2228) ALBUMIN (test code = 2201) 4.8 G/DL CALC GLOBULIN (test code = 3.5 G/DL 2239) CALC A/G RATIO (test code = 1.4 RATIO 2234) BILIRUBIN, TOTAL (test code = 0.3 MG/DL 2206) ALKALINE PHOSPHATASE (test 61 U/L code = 2204) AST (test code = 2218) 38 U/L ALT (test code = 2219) 49 U/L COMPREHENSIVE METABOLIC [id number] 00:00:00 Test Item Value Reference Range Interpretation Comments GLUCOSE (test code = 2217) 411 MG/DL BUN (test code = 2208) 24 MG/DL CREATININE (test code = 2214) 1.13 MG/DL eGFR (2020 CKD-EPI) (test code 62 ML/MIN/1.73 = 03766) CALC BUN/CREAT (test code = 21 RATIO 2235) SODIUM (test code = 2231) 136 MEQ/L POTASSIUM (test code = 2228) 5.0 MEQ/L CHLORIDE (test code = 2215) 97 MEQ/L CARBON DIOXIDE (test code = 20 MEQ/L 2205) CALCIUM (test code = 2209) 10.3 MG/DL PROTEIN, TOTAL (test code = 8.3 G/DL 2228) ALBUMIN (test code = 2201) 4.8 G/DL CALC GLOBULIN (test code = 3.5 G/DL 2239) CALC A/G RATIO (test code = 1.4 RATIO 2233) BILIRUBIN, TOTAL (test code = 0.3 MG/DL 2206) ALKALINE PHOSPHATASE (test 61 U/L code = 2204) AST (test code = 2218) 38 U/L ALT (test code = 2219) 49 U/L HEMOGLOBIN [id number] 00:00:00 Test Item Value Reference Range Interpretation Comments HEMOGLOBIN A1c (test code = 21842) 11.9 % HEMOGLOBIN [id number] 00:00:00 Test Item Value Reference Range Interpretation Comments HEMOGLOBIN A1c (test code = 46527) 11.9 % HEMOGLOBIN [id number] 00:00:00 Test Item Value Reference Range Interpretation Comments HEMOGLOBIN A1c (test code = 29624) 11.9 % LIPID [id number] 00:00:00 Test Item Value Reference Range Interpretation Comments CHOLESTEROL (test code = 2210) 176 MG/DL TRIGLYCERIDES (test code = 2232) 614 MG/DL HDL CHOLESTEROL (test code = 28 MG/DL 2219) CALC LDL CHOL (test code = 2237) (NOTE) MG/DL RISK RATIO LDL/HDL (test code = 2.79 RATIO 2238) LIPID [id number] 00:00:00 Test Item Value Reference Range Interpretation Comments CHOLESTEROL (test code = 2210) 176 MG/DL TRIGLYCERIDES (test code = 2232) 614 MG/DL HDL CHOLESTEROL (test code = 28 MG/DL 0) CALC LDL CHOL (test code = 2237) (NOTE) MG/DL RISK RATIO LDL/HDL (test code = 2.79 RATIO 2238) COMPREHENSIVE METABOLIC [id number] 00:00:00 Test Item Value Reference Range Interpretation Comments GLUCOSE (test code = 2217) 411 MG/DL BUN (test code = 2208) 24 MG/DL CREATININE (test code = 2214) 1.13 MG/DL eGFR (2020 CKD-EPI) (test code 62 ML/MIN/1.73 = 05988) CALC BUN/CREAT (test code = 21 RATIO 2235) SODIUM (test code = 2231) 136 MEQ/L POTASSIUM (test code = 2228) 5.0 MEQ/L CHLORIDE (test code = 2215) 97 MEQ/L CARBON DIOXIDE (test code = 20 MEQ/L 220) CALCIUM (test code = 2209) 10.3 MG/DL PROTEIN, TOTAL (test code = 8.3 G/DL 2228) ALBUMIN (test code = 2201) 4.8 G/DL CALC GLOBULIN (test code = 3.5 G/DL 2240) CALC A/G RATIO (test code = 1.4 RATIO 2234) BILIRUBIN, TOTAL (test code = 0.3 MG/DL 2206) ALKALINE PHOSPHATASE (test 61 U/L code = 2204) AST (test code = 2218) 38 U/L ALT (test code = 2219) 49 U/L COMPREHENSIVE METABOLIC [id number] 00:00:00 Test Item Value Reference Range Interpretation Comments GLUCOSE (test code = 2217) 411 MG/DL BUN (test code = 2208) 24 MG/DL CREATININE (test code = 2214) 1.13 MG/DL eGFR (2020 CKD-EPI) (test code 62 ML/MIN/1.73 = 48239) CALC BUN/CREAT (test code = 21 RATIO 2235) SODIUM (test code = 2231) 136 MEQ/L POTASSIUM (test code = 2228) 5.0 MEQ/L CHLORIDE (test code = 2215) 97 MEQ/L CARBON DIOXIDE (test code = 20 MEQ/L 2205) CALCIUM (test code = 2209) 10.3 MG/DL PROTEIN, TOTAL (test code = 8.3 G/DL 2228) ALBUMIN (test code = 2201) 4.8 G/DL CALC GLOBULIN (test code = 3.5 G/DL 2240) CALC A/G RATIO (test code = 1.4 RATIO 2234) BILIRUBIN, TOTAL (test code = 0.3 MG/DL 2206) ALKALINE PHOSPHATASE (test 61 U/L code = 2204) AST (test code = 2218) 38 U/L ALT (test code = 2219) 49 U/L HEMOGLOBIN [id number] 00:00:00 Test Item Value Reference Range Interpretation Comments HEMOGLOBIN A1c (test code = 88141) 11.9 % HEMOGLOBIN [id number] 00:00:00 Test Item Value Reference Range Interpretation Comments HEMOGLOBIN A1c (test code = 76257) 11.9 % HEMOGLOBIN [id number] 00:00:00 Test Item Value Reference Range Interpretation Comments HEMOGLOBIN A1c (test code = 39420) 11.9 % LIPID [id number] 00:00:00 Test Item Value Reference Range Interpretation Comments CHOLESTEROL (test code = 2210) 176 MG/DL TRIGLYCERIDES (test code = 2232) 614 MG/DL HDL CHOLESTEROL (test code = 28 MG/DL 2220) CALC LDL CHOL (test code = 2237) (NOTE) MG/DL RISK RATIO LDL/HDL (test code = 2.79 RATIO 2238) LIPID [id number] 00:00:00 Test Item Value Reference Range Interpretation Comments CHOLESTEROL (test code = 2210) 176 MG/DL TRIGLYCERIDES (test code = 2232) 614 MG/DL HDL CHOLESTEROL (test code = 28 MG/DL 2220) CALC LDL CHOL (test code = 2237) (NOTE) MG/DL RISK RATIO LDL/HDL (test code = 2.79 RATIO 2238) COMPREHENSIVE METABOLIC [id number] 00:00:00 Test Item Value Reference Range Interpretation Comments GLUCOSE (test code = 2217) 411 MG/DL BUN (test code = 2208) 24 MG/DL CREATININE (test code = 2214) 1.13 MG/DL eGFR (2020 CKD-EPI) (test code 62 ML/MIN/1.73 = 50421) CALC BUN/CREAT (test code = 21 RATIO 2235) SODIUM (test code = 2231) 136 MEQ/L POTASSIUM (test code = 2228) 5.0 MEQ/L CHLORIDE (test code = 2215) 97 MEQ/L CARBON DIOXIDE (test code = 20 MEQ/L 2205) CALCIUM (test code = 220) 10.3 MG/DL PROTEIN, TOTAL (test code = 8.3 G/DL 2228) ALBUMIN (test code = 2201) 4.8 G/DL CALC GLOBULIN (test code = 3.5 G/DL 2240) CALC A/G RATIO (test code = 1.4 RATIO 2234) BILIRUBIN, TOTAL (test code = 0.3 MG/DL 2206) ALKALINE PHOSPHATASE (test 61 U/L code = 2204) AST (test code = 2218) 38 U/L ALT (test code = 2219) 49 U/L HEMOGLOBIN [id number] 00:00:00 Test Item Value Reference Range Interpretation Comments HEMOGLOBIN A1c (test code = 10224) 11.9 % HEMOGLOBIN [id number] 00:00:00 Test Item Value Reference Range Interpretation Comments HEMOGLOBIN A1c (test code = 97402) 11.9 % LIPID [id number] 00:00:00 Test Item Value Reference Range Interpretation Comments CHOLESTEROL (test code = 2210) 176 MG/DL TRIGLYCERIDES (test code = 2232) 614 MG/DL HDL CHOLESTEROL (test code = 28 MG/DL 0) CALC LDL CHOL (test code = 2237) (NOTE) MG/DL RISK RATIO LDL/HDL (test code = 2.79 RATIO 2238) CREATINE [id number] 13:35:13 Test Item Value Reference Range Interpretation Comments CK (test code = 8409251916) 71 U/L 33-194 Lab Interpretation (test code = Normal 56631-9) [facility] GLUCOSE (AUTOMATED)2021-06-18 13:07:35 Test Item Value Reference Range Interpretation Comments POCT GLU (test code = 2551399957) 351 mg/dL 70-110 H Lab Interpretation (test code = Abnormal 90020-1) [facility] GLUCOSE(AGE >30DAYS)2021-06-18 13:04:00 Test Item Value Reference Range Interpretation Comments POCT Glu (age>30days) (test code = 351 mg/dL 70-110 A 3342) Lab Interpretation (test code = Abnormal 75709-6) [facility]. Metabolic Panel (25847)2021-06-18 11:14:20 Test Item Value Reference Range Interpretation Comments NA (test code = 134 mmol/L 135-145 L 9101598316) K (test code = 4.6 mmol/L 3.5-5.0 9920331025) CL (test code = 103 mmol/L 98-108 7618955253) CO2 TOTAL (test code = 18 mmol/L 23-31 L 3288592081) AGAP (test code = 2-16 6414646555) BUN (test code = 30 mg/dL 7-23 H 6087828620) GLUCOSE (test code = 390 mg/dL 70-110 H 6659100880) CREATININE (test code = 0.93 mg/dL 0.50-1.04 1059166938) TOTAL BILI (test code = 0.4 mg/dL 0.1-1.6 2475103611) CALCIUM (test code = 10.0 mg/dL 8.6-10.6 2821280096) T PROTEIN (test code = 7.6 g/dL 6.3-8.2 8450286637) ALBUMIN (test code = 4.5 g/dL 3.5-5.0 0534992703) ALK PHOS (test code = 51 U/L 34-122 0882846972) ALTv (test code = 34 U/L 5-35 2-6) AST(SGOT) (test code = 26 U/L 13-40 9528831503) eGFR (test code = mL/min/1.73m2 6591135483) CALVIN (test code = CALVIN) Association of [...] tests). Lab Interpretation Abnormal (test code = 31467-5) [id number] Test Item Value Reference Range Interpretation Comments POCT PREG (test code = 1605) neg On board controls acceptable with yes C Line (test code = 3574) POCT PREG LOT # (test code = 3575) [id number] POCT PREG TEST DATE (test 08/10/2022 code = 3576) Lab Interpretation (test code = Normal 13192-4) [facility] [id number] 11:00:39 Test Item Value Reference Range Interpretation Comments WBC (test code = See_Comment [Automated 9926-2) message] The sy stem which generated this result transmitted reference range : 4.30 - 11.10 10*3/?L. The reference range was not used to interpret this result as normal/abnormal . RBC (test code = See_Comment [Automated 024-8) message] The sy stem which generated this [...] RDW-SD (test code = 40.1 fL 39.0-49.9 37298-4) RDW-CV (test code = 13.2 % 12.0-15.5 788-0) PLT (test code = See_Comment [Automated 777-3) message] The sy stem which generated this result transmitted reference range : 166 - 358 10*3/ ?L. The reference r doretha was not used to interpret this result as normal/abnormal . MPV (test code = 9.5 fL 9.5-12.9 35693-6) NRBC/100 WBC (test See_Comment [Automat ed code = 4467276642) message] The system which generated this result transmitted reference range : 0.0 - 10.0 /100 WBCs. The refer ence range was not u sed to interpret th is result as normal/abnormal . NRBC x10^3 (test code <0.01 See_Comment [Auto mated = 4339170614) message] The s ystem which generated this result transmitted reference range : 10*3/?L. The reference range was not used to interpret this result as normal/abnormal . GRAN MAT (NEUT) % 43.7 % (test code = 770-8) IMM GRAN % (test code 0.70 % = 0692480818) LYMPH % (test code = 41.9 % 736-9) MONO % (test code = 8.8 % 5905-5) EOS % (test code = 3.6 % 713-8) BASO % (test code = 1.3 % 706-2) GRAN MAT x10^3(ANC) 2.68 10*3/uL 1.88-7.09 (test code = 0822069989) IMM GRAN x10^3 (test 0.04 10*3/uL 0.00-0.06 code = 0160654411) LYMPH x10^3 (test code 2.57 10*3/uL 1.32-3.29 = 731-0) MONO x10^3 (test code 0.54 10*3/uL 0.33-0.92 = 742-7) EOS x10^3 (test code = 0.22 10*3/uL 0.03-0.39 711-2) BASO x10^3 (test code 0.08 10*3/uL 0.01-0.07 H = 704-7) Lab Interpretation Abnormal (test code = 42550-3) [facility] [id number] 00:00:00 Test Item Value Reference Range Interpretation Comments ANDIE SPECIES (test code = 49200) NEGATIVE G. VAGINALIS (test code = 16026) NEGATIVE T. VAGINALIS (test code = 15298) NEGATIVE VAGINAL PATHOGENS DNA [id number] 00:00:00 Test Item Value Reference Range Interpretation Comments ANDIE SPECIES (test code = 49530) NEGATIVE G. VAGINALIS (test code = 33629) NEGATIVE T. VAGINALIS (test code = 55931) NEGATIVE VAGINAL PATHOGENS DNA [id number] 00:00:00 Test Item Value Reference Range Interpretation Comments ANDIE SPECIES (test code = 37269) NEGATIVE G. VAGINALIS (test code = 18753) NEGATIVE T. VAGINALIS (test code = 98099) NEGATIVE VAGINAL PATHOGENS DNA [id number] 00:00:00 Test Item Value Reference Range Interpretation Comments ANDIE SPECIES (test code = 97367) NEGATIVE G. VAGINALIS (test code = 49634) NEGATIVE T. VAGINALIS (test code = 33168) NEGATIVE VAGINAL PATHOGENS DNA [id number] 00:00:00 Test Item Value Reference Range Interpretation Comments ANDIE SPECIES (test code = 36559) NEGATIVE G. VAGINALIS (test code = 80139) NEGATIVE T. VAGINALIS (test code = 80735) NEGATIVE VAGINAL PATHOGENS DNA [id number] 00:00:00 Test Item Value Reference Range Interpretation Comments ANDIE SPECIES (test code = 19346) NEGATIVE G. VAGINALIS (test code = 19593) NEGATIVE T. VAGINALIS (test code = 89827) NEGATIVE VAGINAL PATHOGENS DNA [id number] 00:00:00 Test Item Value Reference Range Interpretation Comments ANDIE SPECIES (test code = 26328) NEGATIVE G. VAGINALIS (test code = 76265) NEGATIVE T. VAGINALIS (test code = 03462) NEGATIVE SARS-CoV-2 (COVID-19) by RT-PCR (HIGH RISK)2021-02-26 00:00:00 Test Item Value Reference Range Interpretation Comments SARS-CoV-2 INTERPRETATION (test NEGATIVE code = 23999) SOURCE (test code = 99299) NOT SPECIFIED SARS-CoV-2 (COVID-19) by RT-PCR (HIGH RISK)2021-02-26 00:00:00 Test Item Value Reference Range Interpretation Comments SARS-CoV-2 INTERPRETATION (test NEGATIVE code = 72483) SOURCE (test code = 74648) NOT SPECIFIED SARS-CoV-2 (COVID-19) by RT-PCR (HIGH RISK)2021-02-26 00:00:00 Test Item Value Reference Range Interpretation Comments SARS-CoV-2 INTERPRETATION (test NEGATIVE code = 29988) SOURCE (test code = 18850) NOT SPECIFIED SARS-CoV-2 (COVID-19) by RT-PCR (HIGH RISK)2021-02-26 00:00:00 Test Item Value Reference Range Interpretation Comments SARS-CoV-2 INTERPRETATION (test NEGATIVE code = 11766) SOURCE (test code = 90477) NOT SPECIFIED SARS-CoV-2 (COVID-19) by RT-PCR (HIGH RISK)2021-02-26 00:00:00 Test Item Value Reference Range Interpretation Comments SARS-CoV-2 INTERPRETATION (test NEGATIVE code = 49733) SOURCE (test code = 18646) NOT SPECIFIED SARS-CoV-2 (COVID-19) by RT-PCR (HIGH RISK)2021-02-26 00:00:00 Test Item Value Reference Range Interpretation Comments SARS-CoV-2 INTERPRETATION (test NEGATIVE code = 98303) SOURCE (test code = 03042) NOT SPECIFIED SARS-CoV-2 (COVID-19) by RT-PCR (HIGH RISK)2021-02-26 00:00:00 Test Item Value Reference Range Interpretation Comments SARS-CoV-2 INTERPRETATION (test NEGATIVE code = 30764) SOURCE (test code = 14772) NOT SPECIFIED CULTURE, URINE [ADDED]2021-02-13 00:00:00 Test Item Value Reference Range Interpretation Comments CULTURE, URINE (test SPECIMEN NUMBER: code = 61495) [id number] CULTURE, URINE [ADDED]2021-02-13 00:00:00 Test Item Value Reference Range Interpretation Comments CULTURE, URINE (test SPECIMEN NUMBER: code = 03487) [id number] CULTURE, URINE [ADDED]2021-02-13 00:00:00 Test Item Value Reference Range Interpretation Comments CULTURE, URINE (test SPECIMEN NUMBER: code = 38732) [id number] CULTURE, URINE [ADDED]2021-02-13 00:00:00 Test Item Value Reference Range Interpretation Comments CULTURE, URINE (test SPECIMEN NUMBER: code = 62856) [id number] CULTURE, URINE [ADDED]2021-02-13 00:00:00 Test Item Value Reference Range Interpretation Comments CULTURE, URINE (test SPECIMEN NUMBER: code = 75338) [id number] CULTURE, URINE [ADDED]2021-02-13 00:00:00 Test Item Value Reference Range Interpretation Comments CULTURE, URINE (test SPECIMEN NUMBER: code = 53892) [id number] CULTURE, URINE [ADDED]2021-02-13 00:00:00 Test Item Value Reference Range Interpretation Comments CULTURE, URINE (test SPECIMEN NUMBER: code = 60132) [id number] VAGINAL PATHOGENS DNA [id number] 00:00:00 Test Item Value Reference Range Interpretation Comments ANDIE SPECIES (test code = 04755) NEGATIVE G. VAGINALIS (test code = 63644) POSITIVE T. VAGINALIS (test code = 25663) NEGATIVE VAGINAL PATHOGENS DNA [id number] 00:00:00 Test Item Value Reference Range Interpretation Comments ANDIE SPECIES (test code = 36637) NEGATIVE G. VAGINALIS (test code = 16238) POSITIVE T. VAGINALIS (test code = 99914) NEGATIVE VAGINAL PATHOGENS DNA [id number] 00:00:00 Test Item Value Reference Range Interpretation Comments ANDIE SPECIES (test code = 67760) NEGATIVE G. VAGINALIS (test code = 31584) POSITIVE T. VAGINALIS (test code = 07275) NEGATIVE VAGINAL PATHOGENS DNA [id number] 00:00:00 Test Item Value Reference Range Interpretation Comments ANDIE SPECIES (test code = 56107) NEGATIVE G. VAGINALIS (test code = 28936) POSITIVE T. VAGINALIS (test code = 91836) NEGATIVE VAGINAL PATHOGENS DNA [id number] 00:00:00 Test Item Value Reference Range Interpretation Comments ANDIE SPECIES (test code = 45107) NEGATIVE G. VAGINALIS (test code = 75886) POSITIVE T. VAGINALIS (test code = 86852) NEGATIVE VAGINAL PATHOGENS DNA [id number] 00:00:00 Test Item Value Reference Range Interpretation Comments ANDIE SPECIES (test code = 07767) NEGATIVE G. VAGINALIS (test code = 68721) POSITIVE T. VAGINALIS (test code = 44278) NEGATIVE VAGINAL PATHOGENS DNA [id number] 00:00:00 Test Item Value Reference Range Interpretation Comments ANDIE SPECIES (test code = 67013) NEGATIVE G. VAGINALIS (test code = 64897) POSITIVE T. VAGINALIS (test code = 40135) NEGATIVE BLOOD GROUP (ABO) AND RH [id number] 00:00:00 Test Item Value Reference Range Interpretation Comments BLOOD TYPE AND RH (test code = A POSITIVE 3901) BLOOD GROUP (ABO) AND RH [id number] 00:00:00 Test Item Value Reference Range Interpretation Comments BLOOD TYPE AND RH (test code = A POSITIVE 3901) BLOOD GROUP (ABO) AND RH [id number] 00:00:00 Test Item Value Reference Range Interpretation Comments BLOOD TYPE AND RH (test code = A POSITIVE 3901) HEMOGLOBIN [id number] 00:00:00 Test Item Value Reference Range Interpretation Comments HEMOGLOBIN A1c (test code = 80336) 11.8 % HEMOGLOBIN [id number] 00:00:00 Test Item Value Reference Range Interpretation Comments HEMOGLOBIN A1c (test code = 39853) 11.8 % HEMOGLOBIN [id number] 00:00:00 Test Item Value Reference Range Interpretation Comments HEMOGLOBIN A1c (test code = 06535) 11.8 % BLOOD GROUP (ABO) AND RH [id number] 00:00:00 Test Item Value Reference Range Interpretation Comments BLOOD TYPE AND RH (test code = A POSITIVE 3901) BLOOD GROUP (ABO) AND RH [id number] 00:00:00 Test Item Value Reference Range Interpretation Comments BLOOD TYPE AND RH (test code = A POSITIVE 3901) BLOOD GROUP (ABO) AND RH [id number] 00:00:00 Test Item Value Reference Range Interpretation Comments BLOOD TYPE AND RH (test code = A POSITIVE 3901) HEMOGLOBIN [id number] 00:00:00 Test Item Value Reference Range Interpretation Comments HEMOGLOBIN A1c (test code = 88219) 11.8 % HEMOGLOBIN [id number] 00:00:00 Test Item Value Reference Range Interpretation Comments HEMOGLOBIN A1c (test code = 72947) 11.8 % HEMOGLOBIN [id number] 00:00:00 Test Item Value Reference Range Interpretation Comments HEMOGLOBIN A1c (test code = 42797) 11.8 % BLOOD GROUP (ABO) AND RH [id number] 00:00:00 Test Item Value Reference Range Interpretation Comments BLOOD TYPE AND RH (test code = A POSITIVE 3901) BLOOD GROUP (ABO) AND RH [id number] 00:00:00 Test Item Value Reference Range Interpretation Comments BLOOD TYPE AND RH (test code = A POSITIVE 3901) BLOOD GROUP (ABO) AND RH [id number] 00:00:00 Test Item Value Reference Range Interpretation Comments BLOOD TYPE AND RH (test code = A POSITIVE 3901) HEMOGLOBIN [id number] 00:00:00 Test Item Value Reference Range Interpretation Comments HEMOGLOBIN A1c (test code = 46251) 11.8 % HEMOGLOBIN [id number] 00:00:00 Test Item Value Reference Range Interpretation Comments HEMOGLOBIN A1c (test code = 39690) 11.8 % HEMOGLOBIN [id number] 00:00:00 Test Item Value Reference Range Interpretation Comments HEMOGLOBIN A1c (test code = 51042) 11.8 % BLOOD GROUP (ABO) AND RH [id number] 00:00:00 Test Item Value Reference Range Interpretation Comments BLOOD TYPE AND RH (test code = A POSITIVE 3901) BLOOD GROUP (ABO) AND RH [id number] 00:00:00 Test Item Value Reference Range Interpretation Comments BLOOD TYPE AND RH (test code = A POSITIVE 3901) HEMOGLOBIN [id number] 00:00:00 Test Item Value Reference Range Interpretation Comments HEMOGLOBIN A1c (test code = 06003) 11.8 % HEMOGLOBIN [id number] 00:00:00 Test Item Value Reference Range Interpretation Comments HEMOGLOBIN A1c (test code = 53013) 11.8 % COMPREHENSIVE METABOLIC [id number] 00:00:00 Test Item Value Reference Range Interpretation Comments GLUCOSE (test code = 2217) 277 MG/DL BUN (test code = 2208) 26 MG/DL CREATININE (test code = 2214) 1.04 MG/DL eGFR AMER. (test code 77 ML/MIN/1.73 = 77496) eGFR NON- AMER. (test 66 ML/MIN/1.73 code = 02627) CALC BUN/CREAT (test code = 25 RATIO 2235) SODIUM (test code = 2231) 137 MEQ/L POTASSIUM (test code = 2228) 4.3 MEQ/L CHLORIDE (test code = 2215) 96 MEQ/L CARBON DIOXIDE (test code = 24 MEQ/L 2205) CALCIUM (test code = 2209) 10.8 MG/DL PROTEIN, TOTAL (test code = 8.5 G/DL 2229) ALBUMIN (test code = 2201) 5.3 G/DL CALC GLOBULIN (test code = 3.2 G/DL 2240) CALC A/G RATIO (test code = 1.7 RATIO 2234) BILIRUBIN, TOTAL (test code = 0.3 MG/DL 2206) ALKALINE PHOSPHATASE (test 44 U/L code = 2204) AST (test code = 2218) 32 U/L ALT (test code = 2219) 51 U/L COMPREHENSIVE METABOLIC [id number] 00:00:00 Test Item Value Reference Range Interpretation Comments GLUCOSE (test code = 2217) 277 MG/DL BUN (test code = 2208) 26 MG/DL CREATININE (test code = 2214) 1.04 MG/DL eGFR AMER. (test code 77 ML/MIN/1.73 = 24080) eGFR NON- AMER. (test 66 ML/MIN/1.73 code = 77368) CALC BUN/CREAT (test code = 25 RATIO 2235) SODIUM (test code = 2231) 137 MEQ/L POTASSIUM (test code = 2228) 4.3 MEQ/L CHLORIDE (test code = 2215) 96 MEQ/L CARBON DIOXIDE (test code = 24 MEQ/L 220) CALCIUM (test code = 2209) 10.8 MG/DL PROTEIN, TOTAL (test code = 8.5 G/DL 2228) ALBUMIN (test code = 2201) 5.3 G/DL CALC GLOBULIN (test code = 3.2 G/DL 2240) CALC A/G RATIO (test code = 1.7 RATIO 2234) BILIRUBIN, TOTAL (test code = 0.3 MG/DL 2206) ALKALINE PHOSPHATASE (test 44 U/L code = 2204) AST (test code = 2218) 32 U/L ALT (test code = 2219) 51 U/L CULTURE, [id number] 00:00:00 Test Item Value Reference Range Interpretation Comments CULTURE, URINE (test SPECIMEN NUMBER: code = 10885) [id number] CULTURE, [id number] 00:00:00 Test Item Value Reference Range Interpretation Comments CULTURE, URINE (test SPECIMEN NUMBER: code = 14595) [id number] COMPREHENSIVE METABOLIC [id number] 00:00:00 Test Item Value Reference Range Interpretation Comments GLUCOSE (test code = 2217) 277 MG/DL BUN (test code = 2208) 26 MG/DL CREATININE (test code = 2214) 1.04 MG/DL eGFR AMER. (test code 77 ML/MIN/1.73 = 03222) eGFR NON- AMER. (test 66 ML/MIN/1.73 code = 05299) CALC BUN/CREAT (test code = 25 RATIO [...] CALC GLOBULIN (test code = 3.2 G/DL 2240) CALC A/G RATIO (test code = 1.7 RATIO 2234) BILIRUBIN, TOTAL (test code = 0.3 MG/DL 2206) ALKALINE PHOSPHATASE (test 44 U/L code = 2204) AST (test code = 2218) 32 U/L ALT (test code = 2219) 51 U/L COMPREHENSIVE METABOLIC [id number] 00:00:00 Test Item Value Reference Range Interpretation Comments GLUCOSE (test code = 2217) 277 MG/DL BUN (test code = 2208) 26 MG/DL CREATININE (test code = 2214) 1.04 MG/DL eGFR AMER. (test code 77 ML/MIN/1.73 = 65576) eGFR NON- AMER. (test 66 ML/MIN/1.73 code = 22827) CALC BUN/CREAT (test code = 25 RATIO [...] CALC GLOBULIN (test code = 3.2 G/DL 2240) CALC A/G RATIO (test code = 1.7 RATIO 2234) BILIRUBIN, TOTAL (test code = 0.3 MG/DL 2206) ALKALINE PHOSPHATASE (test 44 U/L code = 2204) AST (test code = 2218) 32 U/L ALT (test code = 2219) 51 U/L CULTURE, [id number] 00:00:00 Test Item Value Reference Range Interpretation Comments CULTURE, URINE (test SPECIMEN NUMBER: code = 88145) [id number] CULTURE, [id number] 00:00:00 Test Item Value Reference Range Interpretation Comments CULTURE, URINE (test SPECIMEN NUMBER: code = 74368) [id number] COMPREHENSIVE METABOLIC [id number] 00:00:00 Test Item Value Reference Range Interpretation Comments GLUCOSE (test code = 2217) 277 MG/DL BUN (test code = 2208) 26 MG/DL CREATININE (test code = 2214) 1.04 MG/DL eGFR AMER. (test code 77 ML/MIN/1.73 = 59123) eGFR NON- AMER. (test 66 ML/MIN/1.73 code = 34258) CALC BUN/CREAT (test code = 25 RATIO 2234) SODIUM (test code = 2231) 137 MEQ/L POTASSIUM (test code = 2228) 4.3 MEQ/L CHLORIDE (test code = 2215) 96 MEQ/L CARBON DIOXIDE (test code = 24 MEQ/L 2205) CALCIUM (test code = 2209) 10.8 MG/DL PROTEIN, TOTAL (test code = 8.5 G/DL 2228) ALBUMIN (test code = 2201) 5.3 G/DL CALC GLOBULIN (test code = 3.2 G/DL 2240) CALC A/G RATIO (test code = 1.7 RATIO 2233) BILIRUBIN, TOTAL (test code = 0.3 MG/DL 2206) ALKALINE PHOSPHATASE (test 44 U/L code = 2204) AST (test code = 2218) 32 U/L ALT (test code = 2219) 51 U/L COMPREHENSIVE METABOLIC [id number] 00:00:00 Test Item Value Reference Range Interpretation Comments GLUCOSE (test code = 2217) 277 MG/DL BUN (test code = 2208) 26 MG/DL CREATININE (test code = 2214) 1.04 MG/DL eGFR AMER. (test code 77 ML/MIN/1.73 = 33914) eGFR NON- AMER. (test 66 ML/MIN/1.73 code = 20238) CALC BUN/CREAT (test code = 25 RATIO 2235) SODIUM (test code = 2231) 137 MEQ/L POTASSIUM (test code = 2228) 4.3 MEQ/L CHLORIDE (test code = 2215) 96 MEQ/L CARBON DIOXIDE (test code = 24 MEQ/L 2205) CALCIUM (test code = 2209) 10.8 MG/DL PROTEIN, TOTAL (test code = 8.5 G/DL 2228) ALBUMIN (test code = 220) 5.3 G/DL CALC GLOBULIN (test code = 3.2 G/DL 2239) CALC A/G RATIO (test code = 1.7 RATIO 2233) BILIRUBIN, TOTAL (test code = 0.3 MG/DL 2206) ALKALINE PHOSPHATASE (test 44 U/L code = 2204) AST (test code = 2218) 32 U/L ALT (test code = 2219) 51 U/L CULTURE, [id number] 00:00:00 Test Item Value Reference Range Interpretation Comments CULTURE, URINE (test SPECIMEN NUMBER: code = 18890) [id number] CULTURE, [id number] 00:00:00 Test Item Value Reference Range Interpretation Comments CULTURE, URINE (test SPECIMEN NUMBER: code = 33676) [id number] COMPREHENSIVE METABOLIC [id number] 00:00:00 Test Item Value Reference Range Interpretation Comments GLUCOSE (test code = 2217) 277 MG/DL BUN (test code = 2208) 26 MG/DL CREATININE (test code = 2214) 1.04 MG/DL eGFR AMER. (test code 77 ML/MIN/1.73 = 20946) eGFR NON- AMER. (test 66 ML/MIN/1.73 code = 48863) CALC BUN/CREAT (test code = 25 RATIO [...] CALC GLOBULIN (test code = 3.2 G/DL 2240) CALC A/G RATIO (test code = 1.7 RATIO 4) BILIRUBIN, TOTAL (test code = 0.3 MG/DL 2206) ALKALINE PHOSPHATASE (test 44 U/L code = 2204) AST (test code = 2218) 32 U/L ALT (test code = 2219) 51 U/L CULTURE, [id number] 00:00:00 Test Item Value Reference Range Interpretation Comments CULTURE, URINE (test SPECIMEN NUMBER: code = 86983) [id number] CBC W/AUTO [id number] 00:00:00 Test Item Value Reference Range Interpretation [...] NUCLEATED RBCS (test code = 0.00 K/UL 37050) CBC W/AUTO [id number] 00:00:00 Test Item Value Reference Range Interpretation [...] NUCLEATED RBCS (test code = 0.00 K/UL 11088) CBC W/AUTO [id number] 00:00:00 Test Item Value Reference Range Interpretation [...] NUCLEATED RBCS (test code = 0.00 K/UL 02701) CBC W/AUTO [id number] 00:00:00 Test Item Value Reference Range Interpretation [...] NUCLEATED RBCS (test code = 0.00 K/UL 23141) CBC W/AUTO [id number] 00:00:00 Test Item Value Reference Range Interpretation [...] NUCLEATED RBCS (test code = 0.00 K/UL 90849) CBC W/AUTO [id number] 00:00:00 Test Item Value Reference Range Interpretation [...] NUCLEATED RBCS (test code = 0.00 K/UL 24691) CBC W/AUTO [id number] 00:00:00 Test Item Value Reference Range Interpretation [...] NUCLEATED RBCS (test code = 0.00 K/UL 47464) CBC W/AUTO [id number] 00:00:00 Test Item Value Reference Range Interpretation [...] NUCLEATED RBCS (test code = 0.00 K/UL 65501) CBC W/AUTO [id number] 00:00:00 Test Item Value Reference Range Interpretation [...] NUCLEATED RBCS (test code = 0.00 K/UL 48535) CBC W/AUTO [id number] 00:00:00 Test Item Value Reference Range Interpretation [...] NUCLEATED RBCS (test code = 0.00 K/UL 44983) CBC W/AUTO [id number] 00:00:00 Test Item Value Reference Range Interpretation [...] NUCLEATED RBCS (test code = 0.00 K/UL 10554) VAGINAL PATHOGENS DNA [id number] 00:00:00 Test Item Value Reference Range Interpretation Comments ANDIE SPECIES (test code = ) NEGATIVE G. VAGINALIS (test code = 70274) NEGATIVE T. VAGINALIS (test code = 28187) NEGATIVE VAGINAL PATHOGENS DNA [id number] 00:00:00 Test Item Value Reference Range Interpretation Comments ANDIE SPECIES (test code = ) NEGATIVE G. VAGINALIS (test code = 01320) NEGATIVE T. VAGINALIS (test code = 05393) NEGATIVE VAGINAL PATHOGENS DNA [id number] 00:00:00 Test Item Value Reference Range Interpretation Comments ANDIE SPECIES (test code = 14263) NEGATIVE G. VAGINALIS (test code = 12646) NEGATIVE T. VAGINALIS (test code = ) NEGATIVE VAGINAL PATHOGENS DNA [id number] 00:00:00 Test Item Value Reference Range Interpretation Comments ANDIE SPECIES (test code = 83207) NEGATIVE G. VAGINALIS (test code = 70917) NEGATIVE T. VAGINALIS (test code = 19233) NEGATIVE VAGINAL PATHOGENS DNA [id number] 00:00:00 Test Item Value Reference Range Interpretation Comments ANDIE SPECIES (test code = ) NEGATIVE G. VAGINALIS (test code = 76114) NEGATIVE T. VAGINALIS (test code = 72297) NEGATIVE VAGINAL PATHOGENS DNA [id number] 00:00:00 Test Item Value Reference Range Interpretation Comments ANDIE SPECIES (test code = ) NEGATIVE G. VAGINALIS (test code = 87945) NEGATIVE T. VAGINALIS (test code = 54627) NEGATIVE VAGINAL PATHOGENS DNA [id number] 00:00:00 Test Item Value Reference Range Interpretation Comments ANDIE SPECIES (test code = ) NEGATIVE G. VAGINALIS (test code = 73876) NEGATIVE T. VAGINALIS (test code = 35304) NEGATIVE HEMOGLOBIN [id number] 00:00:00 Test Item Value Reference Range Interpretation Comments HEMOGLOBIN A1c (test code = 42616) 11.4 % HEMOGLOBIN [id number] 00:00:00 Test Item Value Reference Range Interpretation Comments HEMOGLOBIN A1c (test code = 99726) 11.4 % HEMOGLOBIN [id number] 00:00:00 Test Item Value Reference Range Interpretation Comments HEMOGLOBIN A1c (test code = 87232) 11.4 % LIPID [id number] 00:00:00 Test Item Value Reference Range Interpretation Comments CHOLESTEROL (test code = 2210) 162 MG/DL TRIGLYCERIDES (test code = 2232) 387 MG/DL HDL CHOLESTEROL (test code = 2220) 30 MG/DL CALC LDL CHOL (test code = 2237) 80 MG/DL RISK RATIO LDL/HDL (test code = 2.67 RATIO 2238) LIPID [id number] 00:00:00 Test Item Value Reference Range Interpretation Comments CHOLESTEROL (test code = 2210) 162 MG/DL TRIGLYCERIDES (test code = 2232) 387 MG/DL HDL CHOLESTEROL (test code = 2220) 30 MG/DL CALC LDL CHOL (test code = 2237) 80 MG/DL RISK RATIO LDL/HDL (test code = 2.67 RATIO 2238) COMPREHENSIVE METABOLIC [id number] 00:00:00 Test Item Value Reference Range Interpretation Comments GLUCOSE (test code = 2217) 236 MG/DL BUN (test code = 2208) 14 MG/DL CREATININE (test code = 2214) 0.71 MG/DL eGFR AMER. (test code 122 ML/MIN/1.73 = 43617) eGFR NON- AMER. (test 105 ML/MIN/1.73 code = 12909) CALC BUN/CREAT (test code = 20 RATIO [...] ALT (test code = 2219) 69 U/L COMPREHENSIVE METABOLIC [id number] 00:00:00 Test Item Value Reference Range Interpretation Comments GLUCOSE (test code = 2217) 236 MG/DL BUN (test code = 2208) 14 MG/DL CREATININE (test code = 2214) 0.71 MG/DL eGFR AMER. (test code 122 ML/MIN/1.73 = 06567) eGFR NON- AMER. (test 105 ML/MIN/1.73 code = 12535) CALC BUN/CREAT (test code = 20 RATIO 2235) SODIUM (test code = 2231) 138 MEQ/L POTASSIUM (test code = 2228) 4.3 MEQ/L CHLORIDE (test code = 2215) 103 MEQ/L CARBON DIOXIDE (test code = 19 MEQ/L 220) CALCIUM (test code = 2209) 10.0 MG/DL PROTEIN, TOTAL (test code = 7.4 G/DL 2229) ALBUMIN (test code = 2201) 4.5 G/DL CALC GLOBULIN (test code = 2.9 G/DL 2240) CALC A/G RATIO (test code = 1.6 RATIO 2234) BILIRUBIN, TOTAL (test code = 0.4 MG/DL 2206) ALKALINE PHOSPHATASE (test 55 U/L code = 2204) AST (test code = 2218) 38 U/L ALT (test code = 2219) 69 U/L HEMOGLOBIN [id number] 00:00:00 Test Item Value Reference Range Interpretation Comments HEMOGLOBIN A1c (test code = 00497) 11.4 % HEMOGLOBIN [id number] 00:00:00 Test Item Value Reference Range Interpretation Comments HEMOGLOBIN A1c (test code = 18648) 11.4 % HEMOGLOBIN [id number] 00:00:00 Test Item Value Reference Range Interpretation Comments HEMOGLOBIN A1c (test code = 30879) 11.4 % LIPID [id number] 00:00:00 Test Item Value Reference Range Interpretation Comments CHOLESTEROL (test code = 2210) 162 MG/DL TRIGLYCERIDES (test code = 2232) 387 MG/DL HDL CHOLESTEROL (test code = 2220) 30 MG/DL CALC LDL CHOL (test code = 2237) 80 MG/DL RISK RATIO LDL/HDL (test code = 2.67 RATIO 2238) LIPID [id number] 00:00:00 Test Item Value Reference Range Interpretation Comments CHOLESTEROL (test code = 2210) 162 MG/DL TRIGLYCERIDES (test code = 2232) 387 MG/DL HDL CHOLESTEROL (test code = 2220) 30 MG/DL CALC LDL CHOL (test code = 2237) 80 MG/DL RISK RATIO LDL/HDL (test code = 2.67 RATIO 2238) COMPREHENSIVE METABOLIC [id number] 00:00:00 Test Item Value Reference Range Interpretation Comments GLUCOSE (test code = 2217) 236 MG/DL BUN (test code = 2208) 14 MG/DL CREATININE (test code = 2214) 0.71 MG/DL eGFR AMER. (test code 122 ML/MIN/1.73 = 80418) eGFR NON- AMER. (test 105 ML/MIN/1.73 code = 13289) CALC BUN/CREAT (test code = 20 RATIO [...] ALT (test code = 2219) 69 U/L COMPREHENSIVE METABOLIC [id number] 00:00:00 Test Item Value Reference Range Interpretation Comments GLUCOSE (test code = 2217) 236 MG/DL BUN (test code = 2208) 14 MG/DL CREATININE (test code = 2214) 0.71 MG/DL eGFR AMER. (test code 122 ML/MIN/1.73 = 51484) eGFR NON- AMER. (test 105 ML/MIN/1.73 code = 67158) CALC BUN/CREAT (test code = 20 RATIO [...] ALT (test code = 2219) 69 U/L HEMOGLOBIN [id number] 00:00:00 Test Item Value Reference Range Interpretation Comments HEMOGLOBIN A1c (test code = 32275) 11.4 % HEMOGLOBIN [id number] 00:00:00 Test Item Value Reference Range Interpretation Comments HEMOGLOBIN A1c (test code = 63428) 11.4 % HEMOGLOBIN [id number] 00:00:00 Test Item Value Reference Range Interpretation Comments HEMOGLOBIN A1c (test code = 29702) 11.4 % LIPID [id number] 00:00:00 Test Item Value Reference Range Interpretation Comments CHOLESTEROL (test code = 2210) 162 MG/DL TRIGLYCERIDES (test code = 2232) 387 MG/DL HDL CHOLESTEROL (test code = 2220) 30 MG/DL CALC LDL CHOL (test code = 2237) 80 MG/DL RISK RATIO LDL/HDL (test code = 2.67 RATIO 2238) LIPID [id number] 00:00:00 Test Item Value Reference Range Interpretation Comments CHOLESTEROL (test code = 2210) 162 MG/DL TRIGLYCERIDES (test code = 2232) 387 MG/DL HDL CHOLESTEROL (test code = 2220) 30 MG/DL CALC LDL CHOL (test code = 2237) 80 MG/DL RISK RATIO LDL/HDL (test code = 2.67 RATIO 2238) COMPREHENSIVE METABOLIC [id number] 00:00:00 Test Item Value Reference Range Interpretation Comments GLUCOSE (test code = 2217) 236 MG/DL BUN (test code = 2208) 14 MG/DL CREATININE (test code = 2214) 0.71 MG/DL eGFR AMER. (test code 122 ML/MIN/1.73 = 76534) eGFR NON- AMER. (test 105 ML/MIN/1.73 code = 93171) CALC BUN/CREAT (test code = 20 RATIO [...] ALT (test code = 2219) 69 U/L COMPREHENSIVE METABOLIC [id number] 00:00:00 Test Item Value Reference Range Interpretation Comments GLUCOSE (test code = 2217) 236 MG/DL BUN (test code = 2208) 14 MG/DL CREATININE (test code = 2214) 0.71 MG/DL eGFR AMER. (test code 122 ML/MIN/1.73 = 65829) eGFR NON- AMER. (test 105 ML/MIN/1.73 code = 55261) CALC BUN/CREAT (test code = 20 RATIO [...] RATIO 4) BILIRUBIN, TOTAL (test code = 0.4 MG/DL 2206) ALKALINE PHOSPHATASE (test 55 U/L code = 2204) AST (test code = 2218) 38 U/L ALT (test code = 2219) 69 U/L HEMOGLOBIN [id number] 00:00:00 Test Item Value Reference Range Interpretation Comments HEMOGLOBIN A1c (test code = 79241) 11.4 % HEMOGLOBIN [id number] 00:00:00 Test Item Value Reference Range Interpretation Comments HEMOGLOBIN A1c (test code = 55981) 11.4 % LIPID [id number] 00:00:00 Test Item Value Reference Range Interpretation Comments CHOLESTEROL (test code = 2210) 162 MG/DL TRIGLYCERIDES (test code = 2232) 387 MG/DL HDL CHOLESTEROL (test code = 2220) 30 MG/DL CALC LDL CHOL (test code = 2237) 80 MG/DL RISK RATIO LDL/HDL (test code = 2.67 RATIO 2238) COMPREHENSIVE METABOLIC [id number] 00:00:00 Test Item Value Reference Range Interpretation Comments GLUCOSE (test code = 2217) 236 MG/DL BUN (test code = 2208) 14 MG/DL CREATININE (test code = 2214) 0.71 MG/DL eGFR AMER. (test code 122 ML/MIN/1.73 = 60492) eGFR NON- AMER. (test 105 ML/MIN/1.73 code = 18598) CALC BUN/CREAT (test code = 20 RATIO [...] RATIO 2233) BILIRUBIN, TOTAL (test code = 0.4 MG/DL 2206) ALKALINE PHOSPHATASE (test 55 U/L code = 2204) AST (test code = 2218) 38 U/L ALT (test code = 2219) 69 U/L - CT UP EXTREM W/O CONT [id number] 08:37:00 [facility] 1980 Sex: F PatientName: MARGE FRANCO Unit No: [id number] EXAMS: CPT CODE: [id number] [place]TREM W/[place] [address] [place] SCAN LEFT WRIST WITH RECONSTRUCTION DIAGNOSIS: [...] with ACR practice standards and adherence to grit removal operator's recommendations. INDICATION: LEFT WRIST SPRAIN, POSSIBLE SCAPHOID FRACTURE COMPARISON: None. COMMENT: Findings are as described above. at 0837 Reported and signed by: America Schuler MD CC: Bebeto Quiroga MD Technologist: KAVEH WYMAN MRI CTDI: DLP: Trnscrpt: 08/11/2020 (0837) NoelGVG [facility] NAME: MARGE FRANCO [address] [place] [address] PHYS: Bebeto Valiente MD : 1980 AGE: 40 SEX: F [place] [address] LOC: Y.RAD PHONE #: [phone] EXAM DATE: 08/08/2020 STATUS: DEP CLI FAX #: [phone] RAD #: D/C DT PAGE 1 Signed Report Patient Name: Nguyen FRANCO No: [id number] EXAMS: CPT CODE: [id number] CT UP EXTREM W/[place] [address] (Continued) Orig PrintD/T: S: 08/11/2020 (0840) [facility] NAME: Patrick FRANCO[address] PHYS: Bebeto Valiente MD : 1980 AGE: 40 SEX: F [place] [address] LOC: Y.RAD PHONE #: [phone] EXAM DATE: 08/08/2020 STATUS: DEP CLI FAX #: [phone] RAD #: D/C DT PAGE 2 Signed ReportCULTURE, [id number] 00:00:00 Test Item Value Reference Range Interpretation Comments CULTURE, URINE (test SPECIMEN NUMBER: code = 46821) [id number] CULTURE, [id number] 00:00:00 Test Item Value Reference Range Interpretation Comments CULTURE, URINE (test SPECIMEN NUMBER: code = 61531) [id number] CULTURE, [id number] 00:00:00 Test Item Value Reference Range Interpretation Comments CULTURE, URINE (test SPECIMEN NUMBER: code = 53932) [id number] CULTURE, [id number] 00:00:00 Test Item Value Reference Range Interpretation Comments CULTURE, URINE (test SPECIMEN NUMBER: code = 96452) [id number] CULTURE, [id number] 00:00:00 Test Item Value Reference Range Interpretation Comments CULTURE, URINE (test SPECIMEN NUMBER: code = 43276) [id number] CULTURE, [id number] 00:00:00 Test Item Value Reference Range Interpretation Comments CULTURE, URINE (test SPECIMEN NUMBER: code = 73627) [id number] CULTURE, [id number] 00:00:00 Test Item Value Reference Range Interpretation Comments CULTURE, URINE (test SPECIMEN NUMBER: code = 55622) [id number] VAGINAL PATHOGENS DNA [id number] 00:00:00 Test Item Value Reference Range Interpretation Comments ANDIE SPECIES (test code = 46919) NEGATIVE G. VAGINALIS (test code = 11853) NEGATIVE T. VAGINALIS (test code = 11785) NEGATIVE VAGINAL PATHOGENS DNA [id number] 00:00:00 Test Item Value Reference Range Interpretation Comments ANDIE SPECIES (test code = 95925) NEGATIVE G. VAGINALIS (test code = 67628) NEGATIVE T. VAGINALIS (test code = 64893) NEGATIVE VAGINAL PATHOGENS DNA [id number] 00:00:00 Test Item Value Reference Range Interpretation Comments ANDIE SPECIES (test code = 53666) NEGATIVE G. VAGINALIS (test code = 07271) NEGATIVE T. VAGINALIS (test code = 00242) NEGATIVE VAGINAL PATHOGENS DNA [id number] 00:00:00 Test Item Value Reference Range Interpretation Comments ANDIE SPECIES (test code = 80902) NEGATIVE G. VAGINALIS (test code = 42379) NEGATIVE T. VAGINALIS (test code = 32905) NEGATIVE VAGINAL PATHOGENS DNA [id number] 00:00:00 Test Item Value Reference Range Interpretation Comments ANDIE SPECIES (test code = 85819) NEGATIVE G. VAGINALIS (test code = 93214) NEGATIVE T. VAGINALIS (test code = ) NEGATIVE VAGINAL PATHOGENS DNA [id number] 00:00:00 Test Item Value Reference Range Interpretation Comments ANDIE SPECIES (test code = ) NEGATIVE G. VAGINALIS (test code = ) NEGATIVE T. VAGINALIS (test code = ) NEGATIVE VAGINAL PATHOGENS DNA [id number] 00:00:00 Test Item Value Reference Range Interpretation Comments ANDIE SPECIES (test code = ) NEGATIVE G. VAGINALIS (test code = ) NEGATIVE T. VAGINALIS (test code = 97899) NEGATIVE - XR FOREARM 2 VIEWS [id number] 09:10:00 [facility] : 1980 Sex: F PatientName: MARGE FRANCO Unit No: [id number] EXAMS: CPT CODE: [id number] XR FORE[place] [address] [place] [address] Left forearm and wrist 4 views COMMENT: There is no evidence for fracture or subluxation. No focal bony lesions are seen. at 0910 Reported and signed by: Prasad Marina MD CC: Rafy Ferguson MD Technologist: Marie Johnson(R) Transcribed D/ (909) Renee [facility] NAME: MARGE FRANCO [address] PHYS: HAMST.Rafy Paiz : 1980 AGE: 40 SEX: F [place], [place] [address] LOC: TEOFILO PHONE #: [phone] EXAM DATE: 08/02/2020 STATUS: DEP ER FAX #: [phone] RAD #: D/C DT PAGE 1 Signed Report Patient Name: MARGE FRANCO Unit No: [id number] EXAMS: CPT CODE: [id number] XR FOREARM [address] [place] [address] (Continued) Orig Print D/T: S: 08/04/2020 (0914) [facility] NAME: MARGE FRANCO [address] [facility] [address] PHYS: Rafy Marino [place] : 1980 AGE: 40 SEX: F [place] [address] LOC: TEOFILO PHONE #: [phone] EXAM DATE: 08/02/2020 STATUS: DEP ER FAX #: [phone] RAD #: D/C DT PAGE 2 Signed ReportCULTURE, [id number] 00:00:00 Test Item Value Reference Range Interpretation Comments CULTURE, URINE (test SPECIMEN NUMBER: code = 71313) [id number] CULTURE, [id number] 00:00:00 Test Item Value Reference Range Interpretation Comments CULTURE, URINE (test SPECIMEN NUMBER: code = 75037) [id number] CULTURE, [id number] 00:00:00 Test Item Value Reference Range Interpretation Comments CULTURE, URINE (test SPECIMEN NUMBER: code = 49240) [id number] CULTURE, [id number] 00:00:00 Test Item Value Reference Range Interpretation Comments CULTURE, URINE (test SPECIMEN NUMBER: code = 09885) [id number] CULTURE, [id number] 00:00:00 Test Item Value Reference Range Interpretation Comments CULTURE, URINE (test SPECIMEN NUMBER: code = 93850) [id number] CULTURE, [id number] 00:00:00 Test Item Value Reference Range Interpretation Comments CULTURE, URINE (test SPECIMEN NUMBER: code = 41288) [id number] CULTURE, [id number] 00:00:00 Test Item Value Reference Range Interpretation Comments CULTURE, URINE (test SPECIMEN NUMBER: code = 69717) [id number] SARS-CoV-2 (COVID-19) by RT-PCR (HIGH RISK)2020-04-23 00:00:00 Test Item Value Reference Range Interpretation Comments SARS-CoV-2 INTERPRETATION Negative (test code = 78773) SOURCE (test code = 12594) Nasal_Swab_in_VTM__ UTM SARS-CoV-2 (COVID-19) by RT-PCR (HIGH RISK)2020-04-23 00:00:00 Test Item Value Reference Range Interpretation Comments SARS-CoV-2 INTERPRETATION Negative (test code = 23934) SOURCE (test code = 20463) Nasal_Swab_in_VTM__ UTM SARS-CoV-2 (COVID-19) by RT-PCR (HIGH RISK)2020-04-23 00:00:00 Test Item Value Reference Range Interpretation Comments SARS-CoV-2 INTERPRETATION Negative (test code = 46329) SOURCE (test code = 18674) Nasal_Swab_in_VTM__ UTM SARS-CoV-2 (COVID-19) by RT-PCR (HIGH RISK)2020-04-23 00:00:00 Test Item Value Reference Range Interpretation Comments SARS-CoV-2 INTERPRETATION Negative (test code = 78616) SOURCE (test code = 94900) Nasal_Swab_in_VTM__ UTM COMPREHENSIVE METABOLIC [id number] 00:00:00 Test Item Value Reference Range Interpretation Comments GLUCOSE (test code = 2217) 217 MG/DL BUN (test code = 2208) 13 MG/DL CREATININE (test code = 2214) 0.64 MG/DL eGFR AMER. (test code 128 ML/MIN/1.73 = 72808) eGFR NON- AMER. (test 110 ML/MIN/1.73 code = 78766) CALC BUN/CREAT (test code = 20 RATIO 2235) SODIUM (test code = 2231) 137 MEQ/L POTASSIUM (test code = 2228) 4.1 MEQ/L CHLORIDE (test code = 2215) 100 MEQ/L CARBON DIOXIDE (test code = 21 MEQ/L 6) CALCIUM (test code = 2209) 10.0 MG/DL PROTEIN, TOTAL (test code = 7.7 G/DL 2228) ALBUMIN (test code = 2201) 4.6 G/DL CALC GLOBULIN (test code = 3.1 G/DL 2239) CALC A/G RATIO (test code = 1.5 RATIO 2234) BILIRUBIN, TOTAL (test code = 0.4 MG/DL 2206) ALKALINE PHOSPHATASE (test 63 U/L code = 2204) AST (test code = 2218) 36 U/L ALT (test code = 2219) 47 U/L COMPREHENSIVE METABOLIC [id number] 00:00:00 Test Item Value Reference Range Interpretation Comments GLUCOSE (test code = 2217) 217 MG/DL BUN (test code = 2208) 13 MG/DL CREATININE (test code = 2214) 0.64 MG/DL eGFR AMER. (test code 128 ML/MIN/1.73 = 67261) eGFR NON- AMER. (test 110 ML/MIN/1.73 code = 80120) CALC BUN/CREAT (test code = 20 RATIO [...] CALC GLOBULIN (test code = 3.1 G/DL 2240) CALC A/G RATIO (test code = 1.5 RATIO 4) BILIRUBIN, TOTAL (test code = 0.4 MG/DL 2206) ALKALINE PHOSPHATASE (test 63 U/L code = 2204) AST (test code = 2218) 36 U/L ALT (test code = 2219) 47 U/L CULTURE, [id number] 00:00:00 Test Item Value Reference Range Interpretation Comments CULTURE, URINE (test SPECIMEN NUMBER: code = 34996) [id number] CULTURE, [id number] 00:00:00 Test Item Value Reference Range Interpretation Comments CULTURE, URINE (test SPECIMEN NUMBER: code = 00407) [id number] LIPID [id number] 00:00:00 Test Item Value Reference Range Interpretation Comments CHOLESTEROL (test code = 2210) 220 MG/DL TRIGLYCERIDES (test code = 2232) 873 MG/DL HDL CHOLESTEROL (test code = 30 MG/DL 2219) CALC LDL CHOL (test code = 2237) (NOTE) MG/DL RISK RATIO LDL/HDL (test code = (NOTE) RATIO 2238) LIPID [id number] 00:00:00 Test Item Value Reference Range Interpretation Comments CHOLESTEROL (test code = 2210) 220 MG/DL TRIGLYCERIDES (test code = 2232) 873 MG/DL HDL CHOLESTEROL (test code = 30 MG/DL 2220) CALC LDL CHOL (test code = 2237) (NOTE) MG/DL RISK RATIO LDL/HDL (test code = (NOTE) RATIO 2238) HEMOGLOBIN [id number] 00:00:00 Test Item Value Reference Range Interpretation Comments HEMOGLOBIN A1c (test code = 57283) 10.9 % HEMOGLOBIN [id number] 00:00:00 Test Item Value Reference Range Interpretation Comments HEMOGLOBIN A1c (test code = 62788) 10.9 % HEMOGLOBIN [id number] 00:00:00 Test Item Value Reference Range Interpretation Comments HEMOGLOBIN A1c (test code = 05088) 10.9 % CULTURE, [id number] 00:00:00 Test Item Value Reference Range Interpretation Comments CULTURE, URINE (test SPECIMEN NUMBER: code = 64988) [id number] CULTURE, [id number] 00:00:00 Test Item Value Reference Range Interpretation Comments CULTURE, URINE (test SPECIMEN NUMBER: code = 88569) [id number] COMPREHENSIVE METABOLIC [id number] 00:00:00 Test Item Value Reference Range Interpretation Comments GLUCOSE (test code = 2217) 217 MG/DL BUN (test code = 2208) 13 MG/DL CREATININE (test code = 2214) 0.64 MG/DL eGFR AMER. (test code 128 ML/MIN/1.73 = 28260) eGFR NON- AMER. (test 110 ML/MIN/1.73 code = 91303) CALC BUN/CREAT (test code = 20 RATIO 2235) SODIUM (test code = 2231) 137 MEQ/L POTASSIUM (test code = 2228) 4.1 MEQ/L CHLORIDE (test code = 2215) 100 MEQ/L CARBON DIOXIDE (test code = 21 MEQ/L 2206) CALCIUM (test code = 2209) 10.0 MG/DL PROTEIN, TOTAL (test code = 7.7 G/DL 2228) ALBUMIN (test code = 2201) 4.6 G/DL CALC GLOBULIN (test code = 3.1 G/DL 2240) CALC A/G RATIO (test code = 1.5 RATIO 2234) BILIRUBIN, TOTAL (test code = 0.4 MG/DL 2207) ALKALINE PHOSPHATASE (test 63 U/L code = 2204) AST (test code = 2218) 36 U/L ALT (test code = 2219) 47 U/L COMPREHENSIVE METABOLIC [id number] 00:00:00 Test Item Value Reference Range Interpretation Comments GLUCOSE (test code = 2217) 217 MG/DL BUN (test code = 2208) 13 MG/DL CREATININE (test code = 2214) 0.64 MG/DL eGFR AMER. (test code 128 ML/MIN/1.73 = 23486) eGFR NON- AMER. (test 110 ML/MIN/1.73 code = 70104) CALC BUN/CREAT (test code = 20 RATIO 2235) SODIUM (test code = 2231) 137 MEQ/L POTASSIUM (test code = 2228) 4.1 MEQ/L CHLORIDE (test code = 2215) 100 MEQ/L CARBON DIOXIDE (test code = 21 MEQ/L 2206) CALCIUM (test code = 2209) 10.0 MG/DL PROTEIN, TOTAL (test code = 7.7 G/DL 222) ALBUMIN (test code = 2201) 4.6 G/DL CALC GLOBULIN (test code = 3.1 G/DL 2240) CALC A/G RATIO (test code = 1.5 RATIO 2234) BILIRUBIN, TOTAL (test code = 0.4 MG/DL 2207) ALKALINE PHOSPHATASE (test 63 U/L code = 2204) AST (test code = 2218) 36 U/L ALT (test code = 2219) 47 U/L LIPID [id number] 00:00:00 Test Item Value Reference Range Interpretation Comments CHOLESTEROL (test code = 2210) 220 MG/DL TRIGLYCERIDES (test code = 2232) 873 MG/DL HDL CHOLESTEROL (test code = 30 MG/DL 2220) CALC LDL CHOL (test code = 2237) (NOTE) MG/DL RISK RATIO LDL/HDL (test code = (NOTE) RATIO 2238) LIPID [id number] 00:00:00 Test Item Value Reference Range Interpretation Comments CHOLESTEROL (test code = 2210) 220 MG/DL TRIGLYCERIDES (test code = 2232) 873 MG/DL HDL CHOLESTEROL (test code = 30 MG/DL 2219) CALC LDL CHOL (test code = 2237) (NOTE) MG/DL RISK RATIO LDL/HDL (test code = (NOTE) RATIO 2238) HEMOGLOBIN [id number] 00:00:00 Test Item Value Reference Range Interpretation Comments HEMOGLOBIN A1c (test code = 60048) 10.9 % HEMOGLOBIN [id number] 00:00:00 Test Item Value Reference Range Interpretation Comments HEMOGLOBIN A1c (test code = 76979) 10.9 % HEMOGLOBIN [id number] 00:00:00 Test Item Value Reference Range Interpretation Comments HEMOGLOBIN A1c (test code = 40522) 10.9 % CULTURE, [id number] 00:00:00 Test Item Value Reference Range Interpretation Comments CULTURE, URINE (test SPECIMEN NUMBER: code = 50774) [id number] COMPREHENSIVE METABOLIC [id number] 00:00:00 Test Item Value Reference Range Interpretation Comments GLUCOSE (test code = 2217) 217 MG/DL BUN (test code = 8) 13 MG/DL CREATININE (test code = 2214) 0.64 MG/DL eGFR AMER. (test code 128 ML/MIN/1.73 = 49134) eGFR NON- AMER. (test 110 ML/MIN/1.73 code = 67247) CALC BUN/CREAT (test code = 20 RATIO [...] CALC GLOBULIN (test code = 3.1 G/DL 0) CALC A/G RATIO (test code = 1.5 RATIO 2234) BILIRUBIN, TOTAL (test code = 0.4 MG/DL 2206) ALKALINE PHOSPHATASE (test 63 U/L code = 2204) AST (test code = 2218) 36 U/L ALT (test code = 2219) 47 U/L COMPREHENSIVE METABOLIC [id number] 00:00:00 Test Item Value Reference Range Interpretation Comments GLUCOSE (test code = 2217) 217 MG/DL BUN (test code = 2208) 13 MG/DL CREATININE (test code = 2214) 0.64 MG/DL eGFR AMER. (test code 128 ML/MIN/1.73 = 23009) eGFR NON- AMER. (test 110 ML/MIN/1.73 code = 72151) CALC BUN/CREAT (test code = 20 RATIO 2235) SODIUM (test code = 2231) 137 MEQ/L POTASSIUM (test code = 2228) 4.1 MEQ/L CHLORIDE (test code = 2215) 100 MEQ/L CARBON DIOXIDE (test code = 21 MEQ/L 220) CALCIUM (test code = 2209) 10.0 MG/DL PROTEIN, TOTAL (test code = 7.7 G/DL 2228) ALBUMIN (test code = 2201) 4.6 G/DL CALC GLOBULIN (test code = 3.1 G/DL 2240) CALC A/G RATIO (test code = 1.5 RATIO 4) BILIRUBIN, TOTAL (test code = 0.4 MG/DL 2206) ALKALINE PHOSPHATASE (test 63 U/L code = 2204) AST (test code = 2218) 36 U/L ALT (test code = 2219) 47 U/L CULTURE, [id number] 00:00:00 Test Item Value Reference Range Interpretation Comments CULTURE, URINE (test SPECIMEN NUMBER: code = 38871) [id number] LIPID [id number] 00:00:00 Test Item Value Reference Range Interpretation Comments CHOLESTEROL (test code = 2210) 220 MG/DL TRIGLYCERIDES (test code = 2232) 873 MG/DL HDL CHOLESTEROL (test code = 30 MG/DL 2220) CALC LDL CHOL (test code = 2237) (NOTE) MG/DL RISK RATIO LDL/HDL (test code = (NOTE) RATIO 2238) LIPID [id number] 00:00:00 Test Item Value Reference Range Interpretation Comments CHOLESTEROL (test code = 2210) 220 MG/DL TRIGLYCERIDES (test code = 2232) 873 MG/DL HDL CHOLESTEROL (test code = 30 MG/DL 2220) CALC LDL CHOL (test code = 2237) (NOTE) MG/DL RISK RATIO LDL/HDL (test code = (NOTE) RATIO 2238) HEMOGLOBIN [id number] 00:00:00 Test Item Value Reference Range Interpretation Comments HEMOGLOBIN A1c (test code = 92595) 10.9 % HEMOGLOBIN [id number] 00:00:00 Test Item Value Reference Range Interpretation Comments HEMOGLOBIN A1c (test code = 14807) 10.9 % HEMOGLOBIN [id number] 00:00:00 Test Item Value Reference Range Interpretation Comments HEMOGLOBIN A1c (test code = 46756) 10.9 % COMPREHENSIVE METABOLIC [id number] 00:00:00 Test Item Value Reference Range Interpretation Comments GLUCOSE (test code = 2217) 217 MG/DL BUN (test code = 2208) 13 MG/DL CREATININE (test code = 2214) 0.64 MG/DL eGFR AMER. (test code 128 ML/MIN/1.73 = 13538) eGFR NON- AMER. (test 110 ML/MIN/1.73 code = 94158) CALC BUN/CREAT (test code = 20 RATIO [...] CALC GLOBULIN (test code = 3.1 G/DL 2240) CALC A/G RATIO (test code = 1.5 RATIO 2234) BILIRUBIN, TOTAL (test code = 0.4 MG/DL 2206) ALKALINE PHOSPHATASE (test 63 U/L code = 2204) AST (test code = 2218) 36 U/L ALT (test code = 2219) 47 U/L CULTURE, [id number] 00:00:00 Test Item Value Reference Range Interpretation Comments CULTURE, URINE (test SPECIMEN NUMBER: code = 78240) [id number] LIPID [id number] 00:00:00 Test Item Value Reference Range Interpretation Comments CHOLESTEROL (test code = 2210) 220 MG/DL TRIGLYCERIDES (test code = 2232) 873 MG/DL HDL CHOLESTEROL (test code = 30 MG/DL 2219) CALC LDL CHOL (test code = 2237) (NOTE) MG/DL RISK RATIO LDL/HDL (test code = (NOTE) RATIO 2238) HEMOGLOBIN [id number] 00:00:00 Test Item Value Reference Range Interpretation Comments HEMOGLOBIN A1c (test code = 81116) 10.9 % HEMOGLOBIN [id number] 00:00:00 Test Item Value Reference Range Interpretation Comments HEMOGLOBIN A1c (test code = 09017) 10.9 % - XR ANKLE 3 + V [id number] 07:19:00 Patient Name: Marge Franco Unit No: [id number] EXAMS: CPT CODE: [id number] XR ANKLE 3 + V RT [id number] ankle 3 views COMMENT: There is no evidence for fracture. There is no evidence for widening ofthe ankle mortise. There is no evidence for a joint effusion or loose body. A small plantar calcaneal spur is noted. Right foot 2 views COMMENT: There is no evidence for fracture or subluxation. No focal bony lesions are seen. at 0719 Reported and signed by: Prasad Marina MD CC: Barry Hodge DO Technologist: SAMANTHA MORALES, RT(R) Transcribed D/ (718) Renee [facility] NAME: Marge Franco [address] [place] [address] PHYS: Barry Cardenas DO : 1980 AGE: 40 SEX: F [place], [place] [address] LOC: TEOFILO PHONE #: [phone] EXAM DATE: 02/13/2020 STATUS: DEP ER FAX #: [phone] RAD #: D/C DT PAGE 1 Signed Report Patient Name: Marge Franco Unit No: [id number] EXAMS:CPT CODE: [id number] XR ANKLE 3 + V RT 85295 (Continued) Orig Print D/T: S: 02/14/2020 (07) [facility] NAME: Marge Franco [address] [place] [address] PHYS: Barry Cardenas DO : 1980 AGE: 40 SEX: F [place], [place] [address] LOC: TEOFILO PHONE #: [phone] EXAM DATE: 02/13/2020 STATUS: DEP ER FAX #: [phone] RAD #: D/C DT PAGE 2 Signed Report- XR FOOT 2 VIEWS [id number] 07:19:00 Patient Name: Marge Franco Unit No: [id number] EXAMS: CPT CODE: [id number] XR FO[place] [address] [place] [address] Right ankle 3 views COMMENT: There is [...] SAMANTHA MORALES, RT(R) Transcribed D/ (718) Renee [facility] NAME: Marge Franco [address] [place] [address] PHYS: Barry Cardenas DO : 1980 AGE: 40 SEX: F [place] [address] LOC: TEOFILO PHONE #: [phone] EXAM DATE: 02/13/2020 STATUS: DEP ER FAX #: [phone] RAD #: D/C DT PAGE 1 Signed Report Patient Name: Marge Franco Unit No: [id number] EXAMS: CPT CODE: [id number] XR FOOT [address] [place] [address] (Continued) Orig Print D/T: S: 02/14/2020 (07) [facility] NAME: Marge Franco [address] [place] [address] PHYS: Barry Cardenas DO : 1980 AGE: 40 SEX: F [place] [address] LOC: TEOFILO PHONE #: [phone] EXAM DATE: 02/13/2020 STATUS: DEP ER FAX #: [phone] RAD #: D/C DT PAGE 2 Signed Report [id number] 11:17:00 Test Item Value Reference Range Interpretation Comments GLUBED (test code = GLUBED) 119 mg/dL 60-125 N [id number] 08:15:00 Test Item Value Reference Range Interpretation Comments GLUBED (test code = GLUBED) 117 mg/dL 60-125 N Novel Coronavirus 2019 [id number] 17:12:00 Test Item Value Reference Range Interpretation Comments Novel Coronavirus 2019 Inhouse (test Negative Negative code = COVNONPUI) Novel Coronavirus 2019 [id number] 17:12:00 Test Item Value Reference Range Interpretation Comments Novel Coronavirus 2019 Inhouse (test Negative Negative code = COVNONPUI) CBC W/AUTO [id number] 20:19:00 Test Item Value Reference Range Interpretation [...] 0-0 N code = NRBC) BASIC METABOLIC [id number] 19:54:00 Test Item Value Reference Range Interpretation [...] RATE (test code = GFR) mL/mi n/1.73 f3Suvtdllvx Range:Healthy A dults >90 mL/min/1.73 m2 For Chronic Kid stoney Disease: Stage II Mild Decrease i n GFR 60-90 Stage III Moderate Decrea se in GFR 30-59 Stage IV Severe Decrease in GFR 15-29 Stage V Kidney Failure <15 CREATININE (test code 0.83 mg/dL 0.55-1.30 N = CREAT) CALCIUM (test code = 9.6 mg/dL 8.2-10.1 N CA) - CT LOWER EXTRM W/O C [id number] 14:57:00 Patient Name: MARGE FRANCO Unit No: [id number] EXAMS: CPT CODE: [id number] [place] L[place] EXTRM W/[place] [address] [place] SCAN RIGHT ANKLE WITH RECONSTRUCTION DIAGNOSIS: [...] with ACR practice standards and adherence to grit removal operator's recommendations. INDICATION: RIGHT ANKLE PAIN COMPARISON: None.COMMENT: Findings are as described above. at 1784 Reported and signed by: America Schuler MD CC: Elbert Wilson MD Technologist: Shaan Reyez s,RT(R) CTDI: DLP: Trnscrpt: 01/04/2020 (4013) tSCARGVG [facility] NAME: MARGE FRANCO [address] [place] [address] PHYS: Elbert Rodrigues MD : 1980 AGE: 39 SEX: F [place] [address] LOC: Y.RAD PHONE #: [phone] EXAM DATE: 01/04/2020 STATUS: REG CLI FAX #: [phone] RAD #: D/C DT PAGE 1 Signed Report Patient Name: MARGE FRANCO Unit No: [id number] EXAMS: CPT CODE: [id number] [place] LOWER EXTRM W/[place] [address] (Continued) Orig Print D/T:S: 01/04/2020 (1500) [facility] NAME: MARGE FRANCO [address] [facility] PHYS:Elbert Rodrigues MD : 1980 AGE: 39 SEX: F [place], [place] [address] LOC: JAMAR PHONE #: [phone] EXAM DATE: 01/04/2020 STATUS: MARVIN VILLARREALI FAX #: [phone] RAD #: D/CDT PAGE 2 Signed ReportCULTURE, URINE 2019-12-22 00:00:00 Test Item Value Reference Range Interpretation Comments CULTURE, URINE (test SPECIMEN NUMBER: code = 13350) [id number] CULTURE, [id number] 00:00:00 Test Item Value Reference Range Interpretation Comments CULTURE, URINE (test SPECIMEN NUMBER: code = 20967) [id number] CULTURE, [id number] 00:00:00 Test Item Value Reference Range Interpretation Comments CULTURE, URINE (test SPECIMEN NUMBER: code = 06730) [id number] CULTURE, [id number] 00:00:00 Test Item Value Reference Range Interpretation Comments CULTURE, URINE (test SPECIMEN NUMBER: code = 91009) [id number] CULTURE, [id number] 00:00:00 Test Item Value Reference Range Interpretation Comments CULTURE, URINE (test SPECIMEN NUMBER: code = 24043) [id number] CULTURE, [id number] 00:00:00 Test Item Value Reference Range Interpretation Comments CULTURE, URINE (test SPECIMEN NUMBER: code = 89482) [id number] CULTURE, [id number] 00:00:00 Test Item Value Reference Range Interpretation Comments CULTURE, URINE (test SPECIMEN NUMBER: code = 29150) [id number] LIPID [id number] 00:00:00 Test Item Value Reference Range Interpretation Comments CHOLESTEROL (test code = 2210) 354 MG/DL TRIGLYCERIDES (test code = 2232) 2608 MG/DL HDL CHOLESTEROL (test code = 19 MG/DL 2220) CALC LDL CHOL (test code = 2237) NOTE MG/DL RISK RATIO LDL/HDL (test code = (NOTE) RATIO 2238) LIPID [id number] 00:00:00 Test Item Value Reference Range Interpretation Comments CHOLESTEROL (test code = 2210) 354 MG/DL TRIGLYCERIDES (test code = 2232) 2608 MG/DL HDL CHOLESTEROL (test code = 19 MG/DL 2220) CALC LDL CHOL (test code = 2237) NOTE MG/DL RISK RATIO LDL/HDL (test code = (NOTE) RATIO 2238) HEMOGLOBIN [id number] 00:00:00 Test Item Value Reference Range Interpretation Comments HEMOGLOBIN A1c (test code = 71517) 11.5 % HEMOGLOBIN [id number] 00:00:00 Test Item Value Reference Range Interpretation Comments HEMOGLOBIN A1c (test code = 02727) 11.5 % HEMOGLOBIN [id number] 00:00:00 Test Item Value Reference Range Interpretation Comments HEMOGLOBIN A1c (test code = 79712) 11.5 % MICROALBUMIN/CREATININE, RANDOM AND [id number] 00:00:00 Test Item Value Reference Range Interpretation Comments CREATININE, URINE, CONC. (test 92.4 MG/DL code = 2072) ALBUMIN, URINE, RANDOM (test code 158.5 MG/DL = 53062) CALC ALBUMIN/CREAT, RND (test 1715 MG/G code = 01317) MICROALBUMIN/CREATININE, RANDOM AND [id number] 00:00:00 Test Item Value Reference Range Interpretation Comments CREATININE, URINE, CONC. (test 92.4 MG/DL code = 2072) ALBUMIN, URINE, RANDOM (test code 158.5 MG/DL = 83899) CALC ALBUMIN/CREAT, RND (test 1715 MG/G code = 27299) LIPID [id number] 00:00:00 Test Item Value Reference Range Interpretation Comments CHOLESTEROL (test code = 2210) 354 MG/DL TRIGLYCERIDES (test code = 2232) 2608 MG/DL HDL CHOLESTEROL (test code = 19 MG/DL 2220) CALC LDL CHOL (test code = 2237) NOTE MG/DL RISK RATIO LDL/HDL (test code = (NOTE) RATIO 2238) LIPID [id number] 00:00:00 Test Item Value Reference Range Interpretation Comments CHOLESTEROL (test code = 2210) 354 MG/DL TRIGLYCERIDES (test code = 2232) 2608 MG/DL HDL CHOLESTEROL (test code = 19 MG/DL 2220) CALC LDL CHOL (test code = 2237) NOTE MG/DL RISK RATIO LDL/HDL (test code = (NOTE) RATIO 2238) HEMOGLOBIN [id number] 00:00:00 Test Item Value Reference Range Interpretation Comments HEMOGLOBIN A1c (test code = 14308) 11.5 % HEMOGLOBIN [id number] 00:00:00 Test Item Value Reference Range Interpretation Comments HEMOGLOBIN A1c (test code = 52449) 11.5 % HEMOGLOBIN [id number] 00:00:00 Test Item Value Reference Range Interpretation Comments HEMOGLOBIN A1c (test code = 13925) 11.5 % MICROALBUMIN/CREATININE, RANDOM AND [id number] 00:00:00 Test Item Value Reference Range Interpretation Comments CREATININE, URINE, CONC. (test 92.4 MG/DL code = 2072) ALBUMIN, URINE, RANDOM (test code 158.5 MG/DL = 12149) CALC ALBUMIN/CREAT, RND (test 1715 MG/G code = 55937) MICROALBUMIN/CREATININE, RANDOM AND [id number] 00:00:00 Test Item Value Reference Range Interpretation Comments CREATININE, URINE, CONC. (test 92.4 MG/DL code = 2072) ALBUMIN, URINE, RANDOM (test code 158.5 MG/DL = 38920) CALC ALBUMIN/CREAT, RND (test 1715 MG/G code = 80632) LIPID [id number] 00:00:00 Test Item Value Reference Range Interpretation Comments CHOLESTEROL (test code = 2210) 354 MG/DL TRIGLYCERIDES (test code = 2232) 2608 MG/DL HDL CHOLESTEROL (test code = 19 MG/DL 2220) CALC LDL CHOL (test code = 2237) NOTE MG/DL RISK RATIO LDL/HDL (test code = (NOTE) RATIO 2238) LIPID [id number] 00:00:00 Test Item Value Reference Range Interpretation Comments CHOLESTEROL (test code = 2210) 354 MG/DL TRIGLYCERIDES (test code = 2232) 2608 MG/DL HDL CHOLESTEROL (test code = 19 MG/DL 2220) CALC LDL CHOL (test code = 2237) NOTE MG/DL RISK RATIO LDL/HDL (test code = (NOTE) RATIO 2238) HEMOGLOBIN [id number] 00:00:00 Test Item Value Reference Range Interpretation Comments HEMOGLOBIN A1c (test code = 72989) 11.5 % HEMOGLOBIN [id number] 00:00:00 Test Item Value Reference Range Interpretation Comments HEMOGLOBIN A1c (test code = 64437) 11.5 % HEMOGLOBIN [id number] 00:00:00 Test Item Value Reference Range Interpretation Comments HEMOGLOBIN A1c (test code = 12211) 11.5 % MICROALBUMIN/CREATININE, RANDOM AND [id number] 00:00:00 Test Item Value Reference Range Interpretation Comments CREATININE, URINE, CONC. (test 92.4 MG/DL code = 2072) ALBUMIN, URINE, RANDOM (test code 158.5 MG/DL = 58759) CALC ALBUMIN/CREAT, RND (test 1715 MG/G code = 98960) MICROALBUMIN/CREATININE, RANDOM AND [id number] 00:00:00 Test Item Value Reference Range Interpretation Comments CREATININE, URINE, CONC. (test 92.4 MG/DL code = 2072) ALBUMIN, URINE, RANDOM (test code 158.5 MG/DL = 48286) CALC ALBUMIN/CREAT, RND (test 1715 MG/G code = 11398) LIPID [id number] 00:00:00 Test Item Value Reference Range Interpretation Comments CHOLESTEROL (test code = 2210) 354 MG/DL TRIGLYCERIDES (test code = 2232) 2608 MG/DL HDL CHOLESTEROL (test code = 19 MG/DL 2220) CALC LDL CHOL (test code = 2237) NOTE MG/DL RISK RATIO LDL/HDL (test code = (NOTE) RATIO 2238) HEMOGLOBIN [id number] 00:00:00 Test Item Value Reference Range Interpretation Comments HEMOGLOBIN A1c (test code = 73376) 11.5 % HEMOGLOBIN [id number] 00:00:00 Test Item Value Reference Range Interpretation Comments HEMOGLOBIN A1c (test code = 47606) 11.5 % MICROALBUMIN/CREATININE, RANDOM AND [id number] 00:00:00 Test Item Value Reference Range Interpretation Comments CREATININE, URINE, CONC. (test 92.4 MG/DL code = 2072) ALBUMIN, URINE, RANDOM (test code 158.5 MG/DL = 65799) CALC ALBUMIN/CREAT, RND (test 1715 MG/G code = 68382) CULTURE, [id number] 00:00:00 Test Item Value Reference Range Interpretation Comments CULTURE, URINE (test SPECIMEN NUMBER: code = 78907) [id number] CULTURE, [id number] 00:00:00 Test Item Value Reference Range Interpretation Comments CULTURE, URINE (test SPECIMEN NUMBER: code = 96246) [id number] CULTURE, [id number] 00:00:00 Test Item Value Reference Range Interpretation Comments CULTURE, URINE (test SPECIMEN NUMBER: code = 30639) [id number] CULTURE, [id number] 00:00:00 Test Item Value Reference Range Interpretation Comments CULTURE, URINE (test SPECIMEN NUMBER: code = 68545) [id number] CULTURE, [id number] 00:00:00 Test Item Value Reference Range Interpretation Comments CULTURE, URINE (test SPECIMEN NUMBER: code = 51065) [id number] CULTURE, [id number] 00:00:00 Test Item Value Reference Range Interpretation Comments CULTURE, URINE (test SPECIMEN NUMBER: code = 92049) [id number] CULTURE, [id number] 00:00:00 Test Item Value Reference Range Interpretation Comments CULTURE, URINE (test SPECIMEN NUMBER: code = 86839) [id number] VAGINAL PATHOGENS DNA [id number] 00:00:00 Test Item Value Reference Range Interpretation Comments ANDIE SPECIES (test code = 97956) POSITIVE G. VAGINALIS (test code = 46490) NEGATIVE T. VAGINALIS (test code = 22803) NEGATIVE VAGINAL PATHOGENS DNA [id number] 00:00:00 Test Item Value Reference Range Interpretation Comments ANDIE SPECIES (test code = 77097) POSITIVE G. VAGINALIS (test code = 98864) NEGATIVE T. VAGINALIS (test code = 36894) NEGATIVE VAGINAL PATHOGENS DNA [id number] 00:00:00 Test Item Value Reference Range Interpretation Comments ANDIE SPECIES (test code = 60698) POSITIVE G. VAGINALIS (test code = 06634) NEGATIVE T. VAGINALIS (test code = 07145) NEGATIVE VAGINAL PATHOGENS DNA [id number] 00:00:00 Test Item Value Reference Range Interpretation Comments ANDIE SPECIES (test code = 49408) POSITIVE G. VAGINALIS (test code = 96121) NEGATIVE T. VAGINALIS (test code = 02862) NEGATIVE VAGINAL PATHOGENS DNA [id number] 00:00:00 Test Item Value Reference Range Interpretation Comments ANDIE SPECIES (test code = 96064) POSITIVE G. VAGINALIS (test code = 35122) NEGATIVE T. VAGINALIS (test code = 30183) NEGATIVE VAGINAL PATHOGENS DNA [id number] 00:00:00 Test Item Value Reference Range Interpretation Comments ANDIE SPECIES (test code = 43149) POSITIVE G. VAGINALIS (test code = 44483) NEGATIVE T. VAGINALIS (test code = 68567) NEGATIVE VAGINAL PATHOGENS DNA [id number] 00:00:00 Test Item Value Reference Range Interpretation Comments ANDIE SPECIES (test code = 19182) POSITIVE G. VAGINALIS (test code = 57404) NEGATIVE T. VAGINALIS (test code = 26884) NEGATIVE VAGINAL PATHOGENS DNA [id number] 00:00:00 Test Item Value Reference Range Interpretation Comments ANDIE SPECIES (test code = 83565) NEGATIVE G. VAGINALIS (test code = 99293) NEGATIVE T. VAGINALIS (test code = 44284) NEGATIVE VAGINAL PATHOGENS DNA [id number] 00:00:00 Test Item Value Reference Range Interpretation Comments ANDIE SPECIES (test code = 48657) NEGATIVE G. VAGINALIS (test code = 53363) NEGATIVE T. VAGINALIS (test code = 09913) NEGATIVE VAGINAL PATHOGENS DNA [id number] 00:00:00 Test Item Value Reference Range Interpretation Comments ANDIE SPECIES (test code = 85518) NEGATIVE G. VAGINALIS (test code = 44474) NEGATIVE T. VAGINALIS (test code = 76071) NEGATIVE VAGINAL PATHOGENS DNA [id number] 00:00:00 Test Item Value Reference Range Interpretation Comments ANDIE SPECIES (test code = 90976) NEGATIVE G. VAGINALIS (test code = 95108) NEGATIVE T. VAGINALIS (test code = 38680) NEGATIVE VAGINAL PATHOGENS DNA [id number] 00:00:00 Test Item Value Reference Range Interpretation Comments ANDIE SPECIES (test code = 16989) NEGATIVE G. VAGINALIS (test code = 03515) NEGATIVE T. VAGINALIS (test code = 95261) NEGATIVE VAGINAL PATHOGENS DNA [id number] 00:00:00 Test Item Value Reference Range Interpretation Comments ANDIE SPECIES (test code = 13065) NEGATIVE G. VAGINALIS (test code = 12054) NEGATIVE T. VAGINALIS (test code = 29399) NEGATIVE VAGINAL PATHOGENS DNA [id number] 00:00:00 Test Item Value Reference Range Interpretation Comments ANDIE SPECIES (test code = 57647) NEGATIVE G. VAGINALIS (test code = 22625) NEGATIVE T. VAGINALIS (test code = 16220) NEGATIVE VAGINAL PATHOGENS DNA [id number] 00:00:00 Test Item Value Reference Range Interpretation Comments ANDIE SPECIES (test code = 67180) NEGATIVE G. VAGINALIS (test code = 19969) POSITIVE T. VAGINALIS (test code = 11956) NEGATIVE VAGINAL PATHOGENS DNA [id number] 00:00:00 Test Item Value Reference Range Interpretation Comments ANDIE SPECIES (test code = 77678) NEGATIVE G. VAGINALIS (test code = 83587) POSITIVE T. VAGINALIS (test code = 38444) NEGATIVE VAGINAL PATHOGENS DNA [id number] 00:00:00 Test Item Value Reference Range Interpretation Comments ANDIE SPECIES (test code = 05901) NEGATIVE G. VAGINALIS (test code = 97681) POSITIVE T. VAGINALIS (test code = 14012) NEGATIVE VAGINAL PATHOGENS DNA [id number] 00:00:00 Test Item Value Reference Range Interpretation Comments ANDIE SPECIES (test code = 91523) NEGATIVE G. VAGINALIS (test code = 32067) POSITIVE T. VAGINALIS (test code = 50014) NEGATIVE VAGINAL PATHOGENS DNA [id number] 00:00:00 Test Item Value Reference Range Interpretation Comments ANDIE SPECIES (test code = 46644) NEGATIVE G. VAGINALIS (test code = 19072) POSITIVE T. VAGINALIS (test code = 64379) NEGATIVE VAGINAL PATHOGENS DNA [id number] 00:00:00 Test Item Value Reference Range Interpretation Comments ANDIE SPECIES (test code = 66661) NEGATIVE G. VAGINALIS (test code = 13213) POSITIVE T. VAGINALIS (test code = 43147) NEGATIVE VAGINAL PATHOGENS DNA [id number] 00:00:00 Test Item Value Reference Range Interpretation Comments ANDIE SPECIES (test code = 19809) NEGATIVE G. VAGINALIS (test code = 00938) POSITIVE T. VAGINALIS (test code = 35320) NEGATIVE COMPREHENSIVE METABOLIC [id number] 00:00:00 Test Item Value Reference Range Interpretation Comments GLUCOSE (test code = 2217) 353 MG/DL BUN (test code = 2208) 27 MG/DL CREATININE (test code = 2214) 0.90 MG/DL eGFR AMER. (test code 92 ML/MIN/1.73 = 92408) eGFR NON- AMER. (test 79 ML/MIN/1.73 code = 81696) CALC BUN/CREAT (test code = 30 RATIO 2235) SODIUM (test code = 2231) 135 MEQ/L POTASSIUM (test code = 2228) 3.8 MEQ/L CHLORIDE (test code = 2215) 91 MEQ/L CARBON DIOXIDE (test code = 23 MEQ/L 220) CALCIUM (test code = 2209) [...] ALT (test code = 2219) 18 U/L COMPREHENSIVE METABOLIC [id number] 00:00:00 Test Item Value Reference Range Interpretation Comments GLUCOSE (test code = 2217) 353 MG/DL BUN (test code = 2208) 27 MG/DL CREATININE (test code = 2214) 0.90 MG/DL eGFR AMER. (test code 92 ML/MIN/1.73 = 27432) eGFR NON- AMER. (test 79 ML/MIN/1.73 code = 83700) CALC BUN/CREAT (test code = 30 RATIO [...] (test code = 2219) 18 U/L LIPID [id number] 00:00:00 Test Item Value Reference Range Interpretation Comments CHOLESTEROL (test code = 2210) 412 MG/DL TRIGLYCERIDES (test code = 2232) 2520 MG/DL HDL CHOLESTEROL (test code = 16 MG/DL 2220) CALC LDL CHOL (test code = 2237) NOTE MG/DL RISK RATIO LDL/HDL (test code = (NOTE) RATIO 2238) LIPID [id number] 00:00:00 Test Item Value Reference Range Interpretation Comments CHOLESTEROL (test code = 2210) 412 MG/DL TRIGLYCERIDES (test code = 2232) 2520 MG/DL HDL CHOLESTEROL (test code = 16 MG/DL 2220) CALC LDL CHOL (test code = 2237) NOTE MG/DL RISK RATIO LDL/HDL (test code = (NOTE) RATIO 2238) HEMOGLOBIN [id number] 00:00:00 Test Item Value Reference Range Interpretation Comments HEMOGLOBIN A1c (test code = 13720) 10.7 % HEMOGLOBIN [id number] 00:00:00 Test Item Value Reference Range Interpretation Comments HEMOGLOBIN A1c (test code = 40039) 10.7 % HEMOGLOBIN [id number] 00:00:00 Test Item Value Reference Range Interpretation Comments HEMOGLOBIN A1c (test code = 61813) 10.7 % [id number] 00:00:00 Test Item Value Reference Range Interpretation Comments TSH, THIRD GENERATION (test code 0.777 UIU/ML = 2821) [id number] 00:00:00 Test Item Value Reference Range Interpretation Comments TSH, THIRD GENERATION (test code 0.777 UIU/ML = 2821) [id number] 00:00:00 Test Item Value Reference Range Interpretation Comments TSH, THIRD GENERATION (test code 0.777 UIU/ML = 2821) MICROALBUMIN/CREATININE, RANDOM AND [id number] 00:00:00 Test Item Value Reference Range Interpretation Comments CREATININE, URINE, CONC. (test 127.3 MG/DL code = 2072) ALBUMIN, URINE, RANDOM (test code 65.2 MG/DL = 06665) CALC ALBUMIN/CREAT, RND (test 512 MG/G code = 56776) MICROALBUMIN/CREATININE, RANDOM AND [id number] 00:00:00 Test Item Value Reference Range Interpretation Comments CREATININE, URINE, CONC. (test 127.3 MG/DL code = 2072) ALBUMIN, URINE, RANDOM (test code 65.2 MG/DL = 50073) CALC ALBUMIN/CREAT, RND (test 512 MG/G code = 90957) COMPREHENSIVE METABOLIC [id number] 00:00:00 Test Item Value Reference Range Interpretation Comments GLUCOSE (test code = 2217) 353 MG/DL BUN (test code = 2208) 27 MG/DL CREATININE (test code = 2214) 0.90 MG/DL eGFR AMER. (test code 92 ML/MIN/1.73 = 13095) eGFR NON- AMER. (test 79 ML/MIN/1.73 code = 92891) CALC BUN/CREAT (test code = 30 RATIO 2235) SODIUM (test code = 2231) 135 MEQ/L POTASSIUM (test code = 2228) 3.8 MEQ/L CHLORIDE (test code = 2215) 91 MEQ/L CARBON DIOXIDE (test code = 23 MEQ/L 220) CALCIUM (test code = 2209) 10.0 MG/DL PROTEIN, TOTAL (test code = 7.7 G/DL 222) ALBUMIN (test code = 2201) 4.7 G/DL CALC GLOBULIN (test code = 3.0 G/DL 2240) CALC A/G RATIO (test code = 1.6 RATIO 2234) BILIRUBIN, TOTAL (test code = 0.3 MG/DL 2206) ALKALINE PHOSPHATASE (test 59 U/L code = 2204) AST (test code = 2218) 13 U/L ALT (test code = 2219) 18 U/L COMPREHENSIVE METABOLIC [id number] 00:00:00 Test Item Value Reference Range Interpretation Comments GLUCOSE (test code = 2217) 353 MG/DL BUN (test code = 2208) 27 MG/DL CREATININE (test code = 2214) 0.90 MG/DL eGFR AMER. (test code 92 ML/MIN/1.73 = 77229) eGFR NON- AMER. (test 79 ML/MIN/1.73 code = 56734) CALC BUN/CREAT (test code = 30 RATIO 2235) SODIUM (test code = 2231) 135 MEQ/L POTASSIUM (test code = 2228) 3.8 MEQ/L CHLORIDE (test code = 2215) 91 MEQ/L CARBON DIOXIDE (test code = 23 MEQ/L 2206) CALCIUM (test code = 2209) 10.0 MG/DL [...] (test code = 2219) 18 U/L LIPID [id number] 00:00:00 Test Item Value Reference Range Interpretation Comments CHOLESTEROL (test code = 2210) 412 MG/DL TRIGLYCERIDES (test code = 2232) 2520 MG/DL HDL CHOLESTEROL (test code = 16 MG/DL 2220) CALC LDL CHOL (test code = 2237) NOTE MG/DL RISK RATIO LDL/HDL (test code = (NOTE) RATIO 2238) LIPID [id number] 00:00:00 Test Item Value Reference Range Interpretation Comments CHOLESTEROL (test code = 2210) 412 MG/DL TRIGLYCERIDES (test code = 2232) 2520 MG/DL HDL CHOLESTEROL (test code = 16 MG/DL 2220) CALC LDL CHOL (test code = 2237) NOTE MG/DL RISK RATIO LDL/HDL (test code = (NOTE) RATIO 2238) HEMOGLOBIN [id number] 00:00:00 Test Item Value Reference Range Interpretation Comments HEMOGLOBIN A1c (test code = 15868) 10.7 % HEMOGLOBIN [id number] 00:00:00 Test Item Value Reference Range Interpretation Comments HEMOGLOBIN A1c (test code = 69568) 10.7 % HEMOGLOBIN [id number] 00:00:00 Test Item Value Reference Range Interpretation Comments HEMOGLOBIN A1c (test code = 85056) 10.7 % [id number] 00:00:00 Test Item Value Reference Range Interpretation Comments TSH, THIRD GENERATION (test code 0.777 UIU/ML = 2821) [id number] 00:00:00 Test Item Value Reference Range Interpretation Comments TSH, THIRD GENERATION (test code 0.777 UIU/ML = 2821) [id number] 00:00:00 Test Item Value Reference Range Interpretation Comments TSH, THIRD GENERATION (test code 0.777 UIU/ML = 2821) MICROALBUMIN/CREATININE, RANDOM AND [id number] 00:00:00 Test Item Value Reference Range Interpretation Comments CREATININE, URINE, CONC. (test 127.3 MG/DL code = 2072) ALBUMIN, URINE, RANDOM (test code 65.2 MG/DL = 12276) CALC ALBUMIN/CREAT, RND (test 512 MG/G code = 64225) MICROALBUMIN/CREATININE, RANDOM AND [id number] 00:00:00 Test Item Value Reference Range Interpretation Comments CREATININE, URINE, CONC. (test 127.3 MG/DL code = 2072) ALBUMIN, URINE, RANDOM (test code 65.2 MG/DL = 76917) CALC ALBUMIN/CREAT, RND (test 512 MG/G code = 71665) COMPREHENSIVE METABOLIC [id number] 00:00:00 Test Item Value Reference Range Interpretation Comments GLUCOSE (test code = 2217) 353 MG/DL BUN (test code = 2208) 27 MG/DL CREATININE (test code = 2214) 0.90 MG/DL eGFR AMER. (test code 92 ML/MIN/1.73 = 76417) eGFR NON- AMER. (test 79 ML/MIN/1.73 code = 38042) CALC BUN/CREAT (test code = 30 RATIO 2235) SODIUM (test code = 2231) 135 MEQ/L POTASSIUM (test code = 2228) 3.8 MEQ/L CHLORIDE (test code = 2215) 91 MEQ/L CARBON DIOXIDE (test code = 23 MEQ/L 2206) CALCIUM (test code = 2209) 10.0 MG/DL [...] ALT (test code = 2219) 18 U/L COMPREHENSIVE METABOLIC [id number] 00:00:00 Test Item Value Reference Range Interpretation Comments GLUCOSE (test code = 2217) 353 MG/DL BUN (test code = 2208) 27 MG/DL CREATININE (test code = 2214) 0.90 MG/DL eGFR AMER. (test code 92 ML/MIN/1.73 = 24645) eGFR NON- AMER. (test 79 ML/MIN/1.73 code = 83234) CALC BUN/CREAT (test code = 30 RATIO 2235) SODIUM (test code = 2231) 135 MEQ/L POTASSIUM (test code = 2228) 3.8 MEQ/L CHLORIDE (test code = 2215) 91 MEQ/L CARBON DIOXIDE (test code = 23 MEQ/L 220) CALCIUM (test code = 2209) 10.0 MG/DL PROTEIN, TOTAL (test code = 7.7 G/DL 2228) ALBUMIN (test code = 2201) 4.7 G/DL CALC GLOBULIN (test code = 3.0 G/DL 224) CALC A/G RATIO (test code = 1.6 RATIO 2234) BILIRUBIN, TOTAL (test code = 0.3 MG/DL 2206) ALKALINE PHOSPHATASE (test 59 U/L code = 2204) AST (test code = 2218) 13 U/L ALT (test code = 2219) 18 U/L LIPID [id number] 00:00:00 Test Item Value Reference Range Interpretation Comments CHOLESTEROL (test code = 2210) 412 MG/DL TRIGLYCERIDES (test code = 2232) 2520 MG/DL HDL CHOLESTEROL (test code = 16 MG/DL 2220) CALC LDL CHOL (test code = 2237) NOTE MG/DL RISK RATIO LDL/HDL (test code = (NOTE) RATIO 2238) LIPID [id number] 00:00:00 Test Item Value Reference Range Interpretation Comments CHOLESTEROL (test code = 2210) 412 MG/DL TRIGLYCERIDES (test code = 2232) 2520 MG/DL HDL CHOLESTEROL (test code = 16 MG/DL 2220) CALC LDL CHOL (test code = 2237) NOTE MG/DL RISK RATIO LDL/HDL (test code = (NOTE) RATIO 2238) HEMOGLOBIN [id number] 00:00:00 Test Item Value Reference Range Interpretation Comments HEMOGLOBIN A1c (test code = 64898) 10.7 % HEMOGLOBIN [id number] 00:00:00 Test Item Value Reference Range Interpretation Comments HEMOGLOBIN A1c (test code = 01430) 10.7 % HEMOGLOBIN [id number] 00:00:00 Test Item Value Reference Range Interpretation Comments HEMOGLOBIN A1c (test code = 13283) 10.7 % [id number] 00:00:00 Test Item Value Reference Range Interpretation Comments TSH, THIRD GENERATION (test code 0.777 UIU/ML = 2821) [id number] 00:00:00 Test Item Value Reference Range Interpretation Comments TSH, THIRD GENERATION (test code 0.777 UIU/ML = 2821) [id number] 00:00:00 Test Item Value Reference Range Interpretation Comments TSH, THIRD GENERATION (test code 0.777 UIU/ML = 2821) MICROALBUMIN/CREATININE, RANDOM AND [id number] 00:00:00 Test Item Value Reference Range Interpretation Comments CREATININE, URINE, CONC. (test 127.3 MG/DL code = 2072) ALBUMIN, URINE, RANDOM (test code 65.2 MG/DL = 86912) CALC ALBUMIN/CREAT, RND (test 512 MG/G code = 51580) MICROALBUMIN/CREATININE, RANDOM AND [id number] 00:00:00 Test Item Value Reference Range Interpretation Comments CREATININE, URINE, CONC. (test 127.3 MG/DL code = 2072) ALBUMIN, URINE, RANDOM (test code 65.2 MG/DL = 89777) CALC ALBUMIN/CREAT, RND (test 512 MG/G code = 53067) COMPREHENSIVE METABOLIC [id number] 00:00:00 Test Item Value Reference Range Interpretation Comments GLUCOSE (test code = 2217) 353 MG/DL BUN (test code = 2208) 27 MG/DL CREATININE (test code = 2214) 0.90 MG/DL eGFR AMER. (test code 92 ML/MIN/1.73 = 96191) eGFR NON- AMER. (test 79 ML/MIN/1.73 code = 74024) CALC BUN/CREAT (test code = 30 RATIO [...] CALC GLOBULIN (test code = 3.0 G/DL 2239) CALC A/G RATIO (test code = 1.6 RATIO 4) BILIRUBIN, TOTAL (test code = 0.3 MG/DL 2206) ALKALINE PHOSPHATASE (test 59 U/L code = 2204) AST (test code = 2218) 13 U/L ALT (test code = 2219) 18 U/L LIPID [id number] 00:00:00 Test Item Value Reference Range Interpretation Comments CHOLESTEROL (test code = 2210) 412 MG/DL TRIGLYCERIDES (test code = 2232) 2520 MG/DL HDL CHOLESTEROL (test code = 16 MG/DL 2219) CALC LDL CHOL (test code = 2237) NOTE MG/DL RISK RATIO LDL/HDL (test code = (NOTE) RATIO 2238) HEMOGLOBIN [id number] 00:00:00 Test Item Value Reference Range Interpretation Comments HEMOGLOBIN A1c (test code = 79981) 10.7 % HEMOGLOBIN [id number] 00:00:00 Test Item Value Reference Range Interpretation Comments HEMOGLOBIN A1c (test code = 97513) 10.7 % [id number] 00:00:00 Test Item Value Reference Range Interpretation Comments TSH, THIRD GENERATION (test code 0.777 UIU/ML = 2821) [id number] 00:00:00 Test Item Value Reference Range Interpretation Comments TSH, THIRD GENERATION (test code 0.777 UIU/ML = 2821) MICROALBUMIN/CREATININE, RANDOM AND [id number] 00:00:00 Test Item Value Reference Range Interpretation Comments CREATININE, URINE, CONC. (test 127.3 MG/DL code = 2072) ALBUMIN, URINE, RANDOM (test code 65.2 MG/DL = 34461) CALC ALBUMIN/CREAT, RND (test 512 MG/G code = 18064) CULTURE, [id number] 00:00:00 Test Item Value Reference Range Interpretation Comments CULTURE, URINE (test SPECIMEN NUMBER: code = 66843) [id number] CULTURE, [id number] 00:00:00 Test Item Value Reference Range Interpretation Comments CULTURE, URINE (test SPECIMEN NUMBER: code = 25989) [id number] CULTURE, [id number] 00:00:00 Test Item Value Reference Range Interpretation Comments CULTURE, URINE (test SPECIMEN NUMBER: code = 47312) [id number] CULTURE, [id number] 00:00:00 Test Item Value Reference Range Interpretation Comments CULTURE, URINE (test SPECIMEN NUMBER: code = 59642) [id number] CULTURE, [id number] 00:00:00 Test Item Value Reference Range Interpretation Comments CULTURE, URINE (test SPECIMEN NUMBER: code = 05045) [id number] CULTURE, [id number] 00:00:00 Test Item Value Reference Range Interpretation Comments CULTURE, URINE (test SPECIMEN NUMBER: code = 49558) [id number] CULTURE, [id number] 00:00:00 Test Item Value Reference Range Interpretation Comments CULTURE, URINE (test SPECIMEN NUMBER: code = 61738) [id number] VAGINAL PATHOGENS DNA [id number] 00:00:00 Test Item Value Reference Range Interpretation Comments ANDIE SPECIES (test code = 20853) NEGATIVE G. VAGINALIS (test code = 45941) NEGATIVE T. VAGINALIS (test code = 67053) NEGATIVE VAGINAL PATHOGENS DNA [id number] 00:00:00 Test Item Value Reference Range Interpretation Comments ANDIE SPECIES (test code = 88070) NEGATIVE G. VAGINALIS (test code = 51046) NEGATIVE T. VAGINALIS (test code = 91117) NEGATIVE VAGINAL PATHOGENS DNA [id number] 00:00:00 Test Item Value Reference Range Interpretation Comments ANDIE SPECIES (test code = 20759) NEGATIVE G. VAGINALIS (test code = 85248) NEGATIVE T. VAGINALIS (test code = 64233) NEGATIVE VAGINAL PATHOGENS DNA [id number] 00:00:00 Test Item Value Reference Range Interpretation Comments ANDIE SPECIES (test code = 54805) NEGATIVE G. VAGINALIS (test code = 80442) NEGATIVE T. VAGINALIS (test code = 99480) NEGATIVE VAGINAL PATHOGENS DNA [id number] 00:00:00 Test Item Value Reference Range Interpretation Comments ANDIE SPECIES (test code = 99754) NEGATIVE G. VAGINALIS (test code = 44097) NEGATIVE T. VAGINALIS (test code = 33765) NEGATIVE VAGINAL PATHOGENS DNA [id number] 00:00:00 Test Item Value Reference Range Interpretation Comments ANDIE SPECIES (test code = 26563) NEGATIVE G. VAGINALIS (test code = 18354) NEGATIVE T. VAGINALIS (test code = 70417) NEGATIVE VAGINAL PATHOGENS DNA [id number] 00:00:00 Test Item Value Reference Range Interpretation Comments ANDIE SPECIES (test code = ) NEGATIVE G. VAGINALIS (test code = 96371) NEGATIVE T. VAGINALIS (test code = 06971) NEGATIVE COMPREHENSIVE METABOLIC PANEL [ADDED]2018-05-24 00:00:00 Test Item Value Reference Range Interpretation Comments GLUCOSE (test code = 2217) 198 MG/DL BUN (test code = 2208) 18 MG/DL CREATININE (test code = 2214) 0.86 MG/DL eGFR AMER. (test code 98 ML/MIN/1.73 = 57586) eGFR NON- AMER. (test 84 ML/MIN/1.73 code = 80663) CALC BUN/CREAT (test code = 21 RATIO 2235) SODIUM (test code = 2231) 139 MEQ/L POTASSIUM (test code = 2228) 4.3 MEQ/L CHLORIDE (test code = 2215) 99 MEQ/L CARBON DIOXIDE (test code = 23 MEQ/L 2206) CALCIUM (test code = 2209) 10.0 MG/DL PROTEIN, TOTAL (test code = 7.7 G/DL 222) ALBUMIN (test code = 2201) 4.8 G/DL CALC GLOBULIN (test code = 2.9 G/DL 2240) CALC A/G RATIO (test code = 1.7 RATIO 2234) BILIRUBIN, TOTAL (test code = 0.3 MG/DL 2207) ALKALINE PHOSPHATASE (test 42 U/L code = 2204) AST (test code = 2218) 25 U/L ALT (test code = 2219) 32 U/L COMPREHENSIVE METABOLIC PANEL [ADDED]2018-05-24 00:00:00 Test Item Value Reference Range Interpretation Comments GLUCOSE (test code = 2217) 198 MG/DL BUN (test code = 2208) 18 MG/DL CREATININE (test code = 2214) 0.86 MG/DL eGFR AMER. (test code 98 ML/MIN/1.73 = 09360) eGFR NON- AMER. (test 84 ML/MIN/1.73 code = 71722) CALC BUN/CREAT (test code = 21 RATIO [...] CALC GLOBULIN (test code = 2.9 G/DL 224) CALC A/G RATIO (test code = 1.7 RATIO 2234) BILIRUBIN, TOTAL (test code = [...] HDL CHOLESTEROL (test code = 37 MG/DL 2220) CALC LDL CHOL (test code = 2237) NOTE MG/DL RISK RATIO LDL/HDL (test code = (NOTE) RATIO 2238) LIPID PANEL [ADDED]2018-05-24 00:00:00 Test Item Value Reference Range Interpretation Comments CHOLESTEROL (test code = 2210) 221 MG/DL TRIGLYCERIDES (test code = 2232) 477 MG/DL HDL CHOLESTEROL (test code = 37 MG/DL 2220) CALC LDL CHOL (test code = 2237) NOTE MG/DL RISK RATIO LDL/HDL (test code = (NOTE) RATIO 2238) HEMOGLOBIN A1c [ADDED]2018-05-24 00:00:00 Test Item Value Reference Range Interpretation Comments HEMOGLOBIN A1c (test code = 82255) 10.1 % HEMOGLOBIN A1c [ADDED]2018-05-24 00:00:00 Test Item Value Reference Range Interpretation Comments HEMOGLOBIN A1c (test code = 78242) 10.1 % HEMOGLOBIN A1c [ADDED]2018-05-24 00:00:00 Test Item Value Reference Range Interpretation Comments HEMOGLOBIN A1c (test code = 12379) 10.1 % COMPREHENSIVE METABOLIC PANEL [ADDED]2018-05-24 00:00:00 Test Item Value Reference Range Interpretation Comments GLUCOSE (test code = 2217) 198 MG/DL BUN (test code = 2208) 18 MG/DL CREATININE (test code = 2214) 0.86 MG/DL eGFR AMER. (test code 98 ML/MIN/1.73 = 74472) eGFR NON- AMER. (test 84 ML/MIN/1.73 code = 23960) CALC BUN/CREAT (test code = 21 RATIO 2235) SODIUM (test code = 2231) 139 MEQ/L POTASSIUM (test code = 2228) 4.3 MEQ/L CHLORIDE (test code = 2215) 99 MEQ/L CARBON DIOXIDE (test code = 23 MEQ/L 220) CALCIUM (test code = 2209) 10.0 MG/DL PROTEIN, TOTAL (test code = 7.7 G/DL 2228) ALBUMIN (test code = 2201) 4.8 G/DL CALC GLOBULIN (test code = 2.9 G/DL 2240) CALC A/G RATIO (test code = 1.7 RATIO 2234) BILIRUBIN, TOTAL (test code = 0.3 MG/DL 2206) ALKALINE PHOSPHATASE (test 42 U/L code = 2204) AST (test code = 2218) 25 U/L ALT (test code = 2219) 32 U/L COMPREHENSIVE METABOLIC PANEL [ADDED]2018-05-24 00:00:00 Test Item Value Reference Range Interpretation Comments GLUCOSE (test code = 2217) 198 MG/DL BUN (test code = 2208) 18 MG/DL CREATININE (test code = 2214) 0.86 MG/DL eGFR AMER. (test code 98 ML/MIN/1.73 = 95835) eGFR NON- AMER. (test 84 ML/MIN/1.73 code = 21148) CALC BUN/CREAT (test code = 21 RATIO 2235) SODIUM (test code = 2231) 139 MEQ/L POTASSIUM (test code = 2228) 4.3 MEQ/L CHLORIDE (test code = 2215) 99 MEQ/L CARBON DIOXIDE (test code = 23 MEQ/L 2206) CALCIUM (test code = 2209) 10.0 MG/DL PROTEIN, TOTAL (test code = 7.7 G/DL 2228) ALBUMIN (test code = 2201) 4.8 G/DL CALC GLOBULIN (test code = 2.9 G/DL 2240) CALC A/G RATIO (test code = 1.7 RATIO 2234) BILIRUBIN, TOTAL (test code = [...] HDL CHOLESTEROL (test code = 37 MG/DL 2220) CALC LDL CHOL (test code = 2237) NOTE MG/DL RISK RATIO LDL/HDL (test code = (NOTE) RATIO 2238) LIPID PANEL [ADDED]2018-05-24 00:00:00 Test Item Value Reference Range Interpretation Comments CHOLESTEROL (test code = 2210) 221 MG/DL TRIGLYCERIDES (test code = 2232) 477 MG/DL HDL CHOLESTEROL (test code = 37 MG/DL 2220) CALC LDL CHOL (test code = 2237) NOTE MG/DL RISK RATIO LDL/HDL (test code = (NOTE) RATIO 2238) HEMOGLOBIN A1c [ADDED]2018-05-24 00:00:00 Test Item Value Reference Range Interpretation Comments HEMOGLOBIN A1c (test code = 88880) 10.1 % HEMOGLOBIN A1c [ADDED]2018-05-24 00:00:00 Test Item Value Reference Range Interpretation Comments HEMOGLOBIN A1c (test code = 25677) 10.1 % HEMOGLOBIN A1c [ADDED]2018-05-24 00:00:00 Test Item Value Reference Range Interpretation Comments HEMOGLOBIN A1c (test code = 46430) 10.1 % COMPREHENSIVE METABOLIC PANEL [ADDED]2018-05-24 00:00:00 Test Item Value Reference Range Interpretation Comments GLUCOSE (test code = 2217) 198 MG/DL BUN (test code = 2208) 18 MG/DL CREATININE (test code = 2214) 0.86 MG/DL eGFR AMER. (test code 98 ML/MIN/1.73 = 31850) eGFR NON- AMER. (test 84 ML/MIN/1.73 code = 38939) CALC BUN/CREAT (test code = 21 RATIO 2235) SODIUM (test code = 2231) 139 MEQ/L POTASSIUM (test code = 2228) 4.3 MEQ/L CHLORIDE (test code = 2215) 99 MEQ/L CARBON DIOXIDE (test code = 23 MEQ/L 2206) CALCIUM (test code = 2209) 10.0 MG/DL PROTEIN, TOTAL (test code = 7.7 G/DL 2229) ALBUMIN (test code = 2201) 4.8 G/DL CALC GLOBULIN (test code = 2.9 G/DL 2240) CALC A/G RATIO (test code = 1.7 RATIO 2234) BILIRUBIN, TOTAL (test code = 0.3 MG/DL 2207) ALKALINE PHOSPHATASE (test 42 U/L code = 2204) AST (test code = 2218) 25 U/L ALT (test code = 2219) 32 U/L COMPREHENSIVE METABOLIC PANEL [ADDED]2018-05-24 00:00:00 Test Item Value Reference Range Interpretation Comments GLUCOSE (test code = 2217) 198 MG/DL BUN (test code = 2208) 18 MG/DL CREATININE (test code = 2214) 0.86 MG/DL eGFR AMER. (test code 98 ML/MIN/1.73 = 90565) eGFR NON- AMER. (test 84 ML/MIN/1.73 code = 49297) CALC BUN/CREAT (test code = 21 RATIO 2235) SODIUM (test code = 2231) 139 MEQ/L POTASSIUM (test code = 2228) 4.3 MEQ/L CHLORIDE (test code = 2215) 99 MEQ/L CARBON DIOXIDE (test code = 23 MEQ/L 6) CALCIUM (test code = 2209) 10.0 MG/DL PROTEIN, TOTAL (test code = 7.7 G/DL 2229) ALBUMIN (test code = 2201) 4.8 G/DL CALC GLOBULIN (test code = 2.9 G/DL 2240) CALC A/G RATIO (test code = 1.7 RATIO 2234) BILIRUBIN, TOTAL (test code = 0.3 MG/DL 2207) ALKALINE PHOSPHATASE (test 42 U/L code = 2204) AST (test code = 2218) 25 U/L ALT (test code = 2219) 32 U/L LIPID PANEL [ADDED]2018-05-24 00:00:00 Test Item Value Reference Range Interpretation Comments CHOLESTEROL (test code = 2210) 221 MG/DL TRIGLYCERIDES (test code = 2232) 477 MG/DL HDL CHOLESTEROL (test code = 37 MG/DL 2220) CALC LDL CHOL (test code = 2237) NOTE MG/DL RISK RATIO LDL/HDL (test code = (NOTE) RATIO 2238) LIPID PANEL [ADDED]2018-05-24 00:00:00 Test Item Value Reference Range Interpretation Comments CHOLESTEROL (test code = 2210) 221 MG/DL TRIGLYCERIDES (test code = 2232) 477 MG/DL HDL CHOLESTEROL (test code = 37 MG/DL 2220) CALC LDL CHOL (test code = 2237) NOTE MG/DL RISK RATIO LDL/HDL (test code = (NOTE) RATIO 2238) HEMOGLOBIN A1c [ADDED]2018-05-24 00:00:00 Test Item Value Reference Range Interpretation Comments HEMOGLOBIN A1c (test code = 84143) 10.1 % HEMOGLOBIN A1c [ADDED]2018-05-24 00:00:00 Test Item Value Reference Range Interpretation Comments HEMOGLOBIN A1c (test code = 87231) 10.1 % HEMOGLOBIN A1c [ADDED]2018-05-24 00:00:00 Test Item Value Reference Range Interpretation Comments HEMOGLOBIN A1c (test code = 16226) 10.1 % COMPREHENSIVE METABOLIC PANEL [ADDED]2018-05-24 00:00:00 Test Item Value Reference Range Interpretation Comments GLUCOSE (test code = 2217) 198 MG/DL BUN (test code = 2208) 18 MG/DL CREATININE (test code = 2214) 0.86 MG/DL eGFR AMER. (test code 98 ML/MIN/1.73 = 61599) eGFR NON- AMER. (test 84 ML/MIN/1.73 code = 34935) CALC BUN/CREAT (test code = 21 RATIO [...] A/G RATIO (test code = 1.7 RATIO 2234) BILIRUBIN, TOTAL (test code = [...] HDL CHOLESTEROL (test code = 37 MG/DL 0) CALC LDL CHOL (test code = 2237) NOTE MG/DL RISK RATIO LDL/HDL (test code = (NOTE) RATIO 2238) HEMOGLOBIN A1c [ADDED]2018-05-24 00:00:00 Test Item Value Reference Range Interpretation Comments HEMOGLOBIN A1c (test code = 20793) 10.1 % HEMOGLOBIN A1c [ADDED]2018-05-24 00:00:00 Test Item Value Reference Range Interpretation Comments HEMOGLOBIN A1c (test code = 73860) 10.1 % HEMOGLOBIN [id number] 00:00:00 Test Item Value Reference Range Interpretation Comments HEMOGLOBIN A1c (test code = 65125) 8.5 % HEMOGLOBIN [id number] 00:00:00 Test Item Value Reference Range Interpretation Comments HEMOGLOBIN A1c (test code = 11111) 8.5 % HEMOGLOBIN [id number] 00:00:00 Test Item Value Reference Range Interpretation Comments HEMOGLOBIN A1c (test code = 87355) 8.5 % COMPREHENSIVE METABOLIC [id number] 00:00:00 Test Item Value Reference Range Interpretation Comments GLUCOSE (test code = 2217) 131 MG/DL BUN (test code = 2208) 16 MG/DL CREATININE (test code = 2214) 0.71 MG/DL eGFR AMER. (test code 124 ML/MIN/1.73 = 32565) eGFR NON- AMER. (test 107 ML/MIN/1.73 code = 96016) CALC BUN/CREAT (test code = 23 RATIO [...] CALC GLOBULIN (test code = 2.8 G/DL 2239) CALC A/G RATIO (test code = 1.6 RATIO 2234) BILIRUBIN, TOTAL (test code = 0.4 MG/DL 2206) ALKALINE PHOSPHATASE (test 32 U/L code = 2204) AST (test code = 2218) 26 U/L ALT (test code = 2219) 33 U/L COMPREHENSIVE METABOLIC [id number] 00:00:00 Test Item Value Reference Range Interpretation Comments GLUCOSE (test code = 2217) 131 MG/DL BUN (test code = 2208) 16 MG/DL CREATININE (test code = 2214) 0.71 MG/DL eGFR AMER. (test code 124 ML/MIN/1.73 = 72964) eGFR NON- AMER. (test 107 ML/MIN/1.73 code = 05892) CALC BUN/CREAT (test code = 23 RATIO [...] (test code = 2219) 33 U/L LIPID [id number] 00:00:00 Test Item Value Reference Range Interpretation Comments CHOLESTEROL (test code = 2210) 201 MG/DL TRIGLYCERIDES (test code = 2232) 1014 MG/DL HDL CHOLESTEROL (test code = 25 MG/DL 2220) CALC LDL CHOL (test code = 2237) NOTE MG/DL RISK RATIO LDL/HDL (test code = (NOTE) RATIO 2238) LIPID [id number] 00:00:00 Test Item Value Reference Range Interpretation Comments CHOLESTEROL (test code = 2210) 201 MG/DL TRIGLYCERIDES (test code = 2232) 1014 MG/DL HDL CHOLESTEROL (test code = 25 MG/DL 2220) CALC LDL CHOL (test code = 2237) NOTE MG/DL RISK RATIO LDL/HDL (test code = (NOTE) RATIO 2238) HEMOGLOBIN [id number] 00:00:00 Test Item Value Reference Range Interpretation Comments HEMOGLOBIN A1c (test code = 29076) 8.5 % HEMOGLOBIN [id number] 00:00:00 Test Item Value Reference Range Interpretation Comments HEMOGLOBIN A1c (test code = 48055) 8.5 % HEMOGLOBIN [id number] 00:00:00 Test Item Value Reference Range Interpretation Comments HEMOGLOBIN A1c (test code = 79172) 8.5 % COMPREHENSIVE METABOLIC [id number] 00:00:00 Test Item Value Reference Range Interpretation Comments GLUCOSE (test code = 2217) 131 MG/DL BUN (test code = 2208) 16 MG/DL CREATININE (test code = 2214) 0.71 MG/DL eGFR AMER. (test code 124 ML/MIN/1.73 = 50831) eGFR NON- AMER. (test 107 ML/MIN/1.73 code = 88754) CALC BUN/CREAT (test code = 23 RATIO [...] ALT (test code = 2219) 33 U/L COMPREHENSIVE METABOLIC [id number] 00:00:00 Test Item Value Reference Range Interpretation Comments GLUCOSE (test code = 2217) 131 MG/DL BUN (test code = 2208) 16 MG/DL CREATININE (test code = 2214) 0.71 MG/DL eGFR AMER. (test code 124 ML/MIN/1.73 = 16458) eGFR NON- AMER. (test 107 ML/MIN/1.73 code = 99277) CALC BUN/CREAT (test code = 23 RATIO 2235) SODIUM (test code = 2231) 140 MEQ/L POTASSIUM (test code = 2228) 3.8 MEQ/L CHLORIDE (test code = 2215) 96 MEQ/L CARBON DIOXIDE (test code = 27 MEQ/L 220) CALCIUM (test code = 2209) 9.9 MG/DL PROTEIN, TOTAL (test code = 7.4 G/DL 2228) ALBUMIN (test code = 2201) 4.6 G/DL CALC GLOBULIN (test code = 2.8 G/DL 224) CALC A/G RATIO (test code = 1.6 RATIO 2234) BILIRUBIN, TOTAL (test code = 0.4 MG/DL 2206) ALKALINE PHOSPHATASE (test 32 U/L code = 2204) AST (test code = 2218) 26 U/L ALT (test code = 2219) 33 U/L LIPID [id number] 00:00:00 Test Item Value Reference Range Interpretation Comments CHOLESTEROL (test code = 2210) 201 MG/DL TRIGLYCERIDES (test code = 2232) 1014 MG/DL HDL CHOLESTEROL (test code = 25 MG/DL 2220) CALC LDL CHOL (test code = 2237) NOTE MG/DL RISK RATIO LDL/HDL (test code = (NOTE) RATIO 2238) LIPID [id number] 00:00:00 Test Item Value Reference Range Interpretation Comments CHOLESTEROL (test code = 2210) 201 MG/DL TRIGLYCERIDES (test code = 2232) 1014 MG/DL HDL CHOLESTEROL (test code = 25 MG/DL 2220) CALC LDL CHOL (test code = 2237) NOTE MG/DL RISK RATIO LDL/HDL (test code = (NOTE) RATIO 2238) HEMOGLOBIN [id number] 00:00:00 Test Item Value Reference Range Interpretation Comments HEMOGLOBIN A1c (test code = 47314) 8.5 % HEMOGLOBIN [id number] 00:00:00 Test Item Value Reference Range Interpretation Comments HEMOGLOBIN A1c (test code = 74692) 8.5 % HEMOGLOBIN [id number] 00:00:00 Test Item Value Reference Range Interpretation Comments HEMOGLOBIN A1c (test code = 17938) 8.5 % COMPREHENSIVE METABOLIC [id number] 00:00:00 Test Item Value Reference Range Interpretation Comments GLUCOSE (test code = 2217) 131 MG/DL BUN (test code = 2208) 16 MG/DL CREATININE (test code = 2214) 0.71 MG/DL eGFR AMER. (test code 124 ML/MIN/1.73 = 32970) eGFR NON- AMER. (test 107 ML/MIN/1.73 code = 81544) CALC BUN/CREAT (test code = 23 RATIO 2235) SODIUM (test code = 2231) 140 MEQ/L POTASSIUM (test code = 2228) 3.8 MEQ/L CHLORIDE (test code = 2215) 96 MEQ/L CARBON DIOXIDE (test code = 27 MEQ/L 220) CALCIUM (test code = 2209) 9.9 MG/DL PROTEIN, TOTAL (test code = 7.4 G/DL 2228) ALBUMIN (test code = 2201) 4.6 G/DL CALC GLOBULIN (test code = 2.8 G/DL 2239) CALC A/G RATIO (test code = 1.6 RATIO 2234) BILIRUBIN, TOTAL (test code = 0.4 MG/DL 2206) ALKALINE PHOSPHATASE (test 32 U/L code = 2204) AST (test code = 2218) 26 U/L ALT (test code = 2219) 33 U/L COMPREHENSIVE METABOLIC [id number] 00:00:00 Test Item Value Reference Range Interpretation Comments GLUCOSE (test code = 2217) 131 MG/DL BUN (test code = 2208) 16 MG/DL CREATININE (test code = 2214) 0.71 MG/DL eGFR AMER. (test code 124 ML/MIN/1.73 = 40210) eGFR NON- AMER. (test 107 ML/MIN/1.73 code = 59054) CALC BUN/CREAT (test code = 23 RATIO 2235) SODIUM (test code = 2231) 140 MEQ/L POTASSIUM (test code = 2228) 3.8 MEQ/L CHLORIDE (test code = 2215) 96 MEQ/L CARBON DIOXIDE (test code = 27 MEQ/L 2206) CALCIUM (test code = 2209) 9.9 MG/DL PROTEIN, TOTAL (test code = 7.4 G/DL 2228) ALBUMIN (test code = 2201) 4.6 G/DL CALC GLOBULIN (test code = 2.8 G/DL 2239) CALC A/G RATIO (test code = 1.6 RATIO 2234) BILIRUBIN, TOTAL (test code = 0.4 MG/DL 2206) ALKALINE PHOSPHATASE (test 32 U/L code = 2204) AST (test code = 2218) 26 U/L ALT (test code = 2219) 33 U/L LIPID [id number] 00:00:00 Test Item Value Reference Range Interpretation Comments CHOLESTEROL (test code = 2210) 201 MG/DL TRIGLYCERIDES (test code = 2232) 1014 MG/DL HDL CHOLESTEROL (test code = 25 MG/DL 2220) CALC LDL CHOL (test code = 2237) NOTE MG/DL RISK RATIO LDL/HDL (test code = (NOTE) RATIO 2238) LIPID [id number] 00:00:00 Test Item Value Reference Range Interpretation Comments CHOLESTEROL (test code = 2210) 201 MG/DL TRIGLYCERIDES (test code = 2232) 1014 MG/DL HDL CHOLESTEROL (test code = 25 MG/DL 2220) CALC LDL CHOL (test code = 2237) NOTE MG/DL RISK RATIO LDL/HDL (test code = (NOTE) RATIO 2238) HEMOGLOBIN [id number] 00:00:00 Test Item Value Reference Range Interpretation Comments HEMOGLOBIN A1c (test code = 45190) 8.5 % HEMOGLOBIN [id number] 00:00:00 Test Item Value Reference Range Interpretation Comments HEMOGLOBIN A1c (test code = 36222) 8.5 % COMPREHENSIVE METABOLIC [id number] 00:00:00 Test Item Value Reference Range Interpretation Comments GLUCOSE (test code = 2217) 131 MG/DL BUN (test code = 2208) 16 MG/DL CREATININE (test code = 2214) 0.71 MG/DL eGFR AMER. (test code 124 ML/MIN/1.73 = 44585) eGFR NON- AMER. (test 107 ML/MIN/1.73 code = 37316) CALC BUN/CREAT (test code = 23 RATIO [...] (test code = 2219) 33 U/L LIPID [id number] 00:00:00 Test Item Value Reference Range Interpretation Comments CHOLESTEROL (test code = 2210) 201 MG/DL TRIGLYCERIDES (test code = 2232) 1014 MG/DL HDL CHOLESTEROL (test code = 25 MG/DL 2220) CALC LDL CHOL (test code = 2237) NOTE MG/DL RISK RATIO LDL/HDL (test code = (NOTE) RATIO 2238) CULTURE, HERPES [id number] 00:00:00 Test Item Value Reference Range Interpretation Comments SPECIMEN SOURCE (test code = 55948) LABIA HERPES CULTURE (test code = 3533) NEGATIVE CULTURE, HERPES [id number] 00:00:00 Test Item Value Reference Range Interpretation Comments SPECIMEN SOURCE (test code = 72867) LABIA HERPES CULTURE (test code = 3533) NEGATIVE CULTURE, HERPES [id number] 00:00:00 Test Item Value Reference Range Interpretation Comments SPECIMEN SOURCE (test code = 51661) LABIA HERPES CULTURE (test code = 3533) NEGATIVE CULTURE, HERPES [id number] 00:00:00 Test Item Value Reference Range Interpretation Comments SPECIMEN SOURCE (test code = 92230) LABIA HERPES CULTURE (test code = 3533) NEGATIVE CULTURE, HERPES [id number] 00:00:00 Test Item Value Reference Range Interpretation Comments SPECIMEN SOURCE (test code = 84435) LABIA HERPES CULTURE (test code = 3533) NEGATIVE CULTURE, HERPES [id number] 00:00:00 Test Item Value Reference Range Interpretation Comments SPECIMEN SOURCE (test code = 05120) LABIA HERPES CULTURE (test code = 3533) NEGATIVE CULTURE, HERPES [id number] 00:00:00 Test Item Value Reference Range Interpretation Comments SPECIMEN SOURCE (test code = 18402) LABIA HERPES CULTURE (test code = 3533) NEGATIVE VAGINAL PATHOGENS DNA [id number] 00:00:00 Test Item Value Reference Range Interpretation Comments ANDIE SPECIES (test code = 68576) NEGATIVE G. VAGINALIS (test code = 14115) NEGATIVE T. VAGINALIS (test code = 55067) NEGATIVE VAGINAL PATHOGENS DNA [id number] 00:00:00 Test Item Value Reference Range Interpretation Comments ANDIE SPECIES (test code = 85547) NEGATIVE G. VAGINALIS (test code = 75700) NEGATIVE T. VAGINALIS (test code = 42941) NEGATIVE VAGINAL PATHOGENS DNA [id number] 00:00:00 Test Item Value Reference Range Interpretation Comments ANDIE SPECIES (test code = 69903) NEGATIVE G. VAGINALIS (test code = 17037) NEGATIVE T. VAGINALIS (test code = 26873) NEGATIVE VAGINAL PATHOGENS DNA [id number] 00:00:00 Test Item Value Reference Range Interpretation Comments ANDIE SPECIES (test code = 29853) NEGATIVE G. VAGINALIS (test code = 81874) NEGATIVE T. VAGINALIS (test code = 25953) NEGATIVE VAGINAL PATHOGENS DNA [id number] 00:00:00 Test Item Value Reference Range Interpretation Comments ANDIE SPECIES (test code = 33330) NEGATIVE G. VAGINALIS (test code = 65830) NEGATIVE T. VAGINALIS (test code = 56535) NEGATIVE VAGINAL PATHOGENS DNA [id number] 00:00:00 Test Item Value Reference Range Interpretation Comments ANDIE SPECIES (test code = 92884) NEGATIVE G. VAGINALIS (test code = 52488) NEGATIVE T. VAGINALIS (test code = 98544) NEGATIVE VAGINAL PATHOGENS DNA [id number] 00:00:00 Test Item Value Reference Range Interpretation Comments ANDIE SPECIES (test code = 48595) NEGATIVE G. VAGINALIS (test code = 55148) NEGATIVE T. VAGINALIS (test code = 60453) NEGATIVE COMPREHENSIVE METABOLIC [id number] 00:00:00 Test Item Value Reference Range Interpretation Comments GLUCOSE (test code = 2217) 138 MG/DL BUN (test code = 2208) 13 MG/DL CREATININE (test code = 2214) 0.50 MG/DL eGFR AMER. (test code 141 ML/MIN/1.73 = 19293) eGFR NON- AMER. (test 122 ML/MIN/1.73 code = 04103) CALC BUN/CREAT (test code = 26 RATIO 2235) SODIUM (test code = 2231) 141 MEQ/L POTASSIUM (test code = 2228) 4.3 MEQ/L CHLORIDE (test code = 2215) 99 MEQ/L CARBON DIOXIDE (test code = 24 MEQ/L 2206) CALCIUM (test code = 2209) 9.3 MG/DL PROTEIN, TOTAL (test code = 7.6 G/DL 222) ALBUMIN (test code = 2201) 4.2 G/DL CALC GLOBULIN (test code = 3.4 G/DL 2240) CALC A/G RATIO (test code = 1.2 RATIO 2234) BILIRUBIN, TOTAL (test code = 0.2 MG/DL 2206) ALKALINE PHOSPHATASE (test 58 U/L code = 2204) AST (test code = 2218) 39 U/L ALT (test code = 2219) 41 U/L COMPREHENSIVE METABOLIC [id number] 00:00:00 Test Item Value Reference Range Interpretation Comments GLUCOSE (test code = 2217) 138 MG/DL BUN (test code = 2208) 13 MG/DL CREATININE (test code = 2214) 0.50 MG/DL eGFR AMER. (test code 141 ML/MIN/1.73 = 22371) eGFR NON- AMER. (test 122 ML/MIN/1.73 code = 27483) CALC BUN/CREAT (test code = 26 RATIO [...] A/G RATIO (test code = 1.2 RATIO 2234) BILIRUBIN, TOTAL (test code = 0.2 MG/DL 2206) ALKALINE PHOSPHATASE (test 58 U/L code = 2204) AST (test code = 2218) 39 U/L ALT (test code = 2219) 41 U/L LIPID [id number] 00:00:00 Test Item Value Reference Range Interpretation Comments CHOLESTEROL (test code = 2210) 359 MG/DL TRIGLYCERIDES (test code = 2232) 1659 MG/DL HDL CHOLESTEROL (test code = 15 MG/DL 2220) CALC LDL CHOL (test code = 2237) NOTE MG/DL RISK RATIO LDL/HDL (test code = (NOTE) RATIO 2238) LIPID [id number] 00:00:00 Test Item Value Reference Range Interpretation Comments CHOLESTEROL (test code = 2210) 359 MG/DL TRIGLYCERIDES (test code = 2232) 1659 MG/DL HDL CHOLESTEROL (test code = 15 MG/DL 2220) CALC LDL CHOL (test code = 2237) NOTE MG/DL RISK RATIO LDL/HDL (test code = (NOTE) RATIO 2238) CBC W/AUTO [id number] 00:00:00 Test Item Value Reference Range Interpretation [...] code = 1015) 287 K/UL CBC W/AUTO [id number] 00:00:00 Test Item Value Reference Range Interpretation [...] code = 1015) 287 K/UL CBC W/AUTO [id number] 00:00:00 Test Item Value Reference Range Interpretation [...] (test code = 1015) 287 K/UL HEMOGLOBIN [id number] 00:00:00 Test Item Value Reference Range Interpretation Comments HEMOGLOBIN A1c (test code = 58388) 9.8 % HEMOGLOBIN [id number] 00:00:00 Test Item Value Reference Range Interpretation Comments HEMOGLOBIN A1c (test code = 43559) 9.8 % HEMOGLOBIN [id number] 00:00:00 Test Item Value Reference Range Interpretation Comments HEMOGLOBIN A1c (test code = 14077) 9.8 % [id number] 00:00:00 Test Item Value Reference Range Interpretation Comments TSH (test code = 2821) 2.110 UIU/ML [id number] 00:00:00 Test Item Value Reference Range Interpretation Comments TSH (test code = 2821) 2.110 UIU/ML [id number] 00:00:00 Test Item Value Reference Range Interpretation Comments TSH (test code = 2821) 2.110 UIU/ML COMPREHENSIVE METABOLIC [id number] 00:00:00 Test Item Value Reference Range Interpretation Comments GLUCOSE (test code = 2217) 138 MG/DL BUN (test code = 2208) 13 MG/DL CREATININE (test code = 2214) 0.50 MG/DL eGFR AMER. (test code 141 ML/MIN/1.73 = 09415) eGFR NON- AMER. (test 122 ML/MIN/1.73 code = 95146) CALC BUN/CREAT (test code = 26 RATIO [...] A/G RATIO (test code = 1.2 RATIO 2234) BILIRUBIN, TOTAL (test code = 0.2 MG/DL 2206) ALKALINE PHOSPHATASE (test 58 U/L code = 2204) AST (test code = 2218) 39 U/L ALT (test code = 2219) 41 U/L COMPREHENSIVE METABOLIC [id number] 00:00:00 Test Item Value Reference Range Interpretation Comments GLUCOSE (test code = 2217) 138 MG/DL BUN (test code = 2208) 13 MG/DL CREATININE (test code = 2214) 0.50 MG/DL eGFR AMER. (test code 141 ML/MIN/1.73 = 56406) eGFR NON- AMER. (test 122 ML/MIN/1.73 code = 18480) CALC BUN/CREAT (test code = 26 RATIO [...] A/G RATIO (test code = 1.2 RATIO 2234) BILIRUBIN, TOTAL (test code = 0.2 MG/DL 7) ALKALINE PHOSPHATASE (test 58 U/L code = 2204) AST (test code = 2218) 39 U/L ALT (test code = 2219) 41 U/L LIPID [id number] 00:00:00 Test Item Value Reference Range Interpretation Comments CHOLESTEROL (test code = 2210) 359 MG/DL TRIGLYCERIDES (test code = 2232) 1659 MG/DL HDL CHOLESTEROL (test code = 15 MG/DL 2220) CALC LDL CHOL (test code = 2237) NOTE MG/DL RISK RATIO LDL/HDL (test code = (NOTE) RATIO 2238) LIPID [id number] 00:00:00 Test Item Value Reference Range Interpretation Comments CHOLESTEROL (test code = 2210) 359 MG/DL TRIGLYCERIDES (test code = 2232) 1659 MG/DL HDL CHOLESTEROL (test code = 15 MG/DL 2220) CALC LDL CHOL (test code = 2237) NOTE MG/DL RISK RATIO LDL/HDL (test code = (NOTE) RATIO 2238) CBC W/AUTO [id number] 00:00:00 Test Item Value Reference Range Interpretation [...] code = 1015) 287 K/UL CBC W/AUTO [id number] 00:00:00 Test Item Value Reference Range Interpretation [...] code = 1015) 287 K/UL CBC W/AUTO [id number] 00:00:00 Test Item Value Reference Range Interpretation [...] (test code = 1015) 287 K/UL HEMOGLOBIN [id number] 00:00:00 Test Item Value Reference Range Interpretation Comments HEMOGLOBIN A1c (test code = 50815) 9.8 % HEMOGLOBIN [id number] 00:00:00 Test Item Value Reference Range Interpretation Comments HEMOGLOBIN A1c (test code = 32161) 9.8 % HEMOGLOBIN [id number] 00:00:00 Test Item Value Reference Range Interpretation Comments HEMOGLOBIN A1c (test code = 53931) 9.8 % [id number] 00:00:00 Test Item Value Reference Range Interpretation Comments TSH (test code = 2821) 2.110 UIU/ML [id number] 00:00:00 Test Item Value Reference Range Interpretation Comments TSH (test code = 2821) 2.110 UIU/ML [id number] 00:00:00 Test Item Value Reference Range Interpretation Comments TSH (test code = 2821) 2.110 UIU/ML COMPREHENSIVE METABOLIC [id number] 00:00:00 Test Item Value Reference Range Interpretation Comments GLUCOSE (test code = 2217) 138 MG/DL BUN (test code = 2208) 13 MG/DL CREATININE (test code = 2214) 0.50 MG/DL eGFR AMER. (test code 141 ML/MIN/1.73 = 63430) eGFR NON- AMER. (test 122 ML/MIN/1.73 code = 95882) CALC BUN/CREAT (test code = 26 RATIO 2235) SODIUM (test code = 2231) 141 MEQ/L POTASSIUM (test code = 2228) 4.3 MEQ/L CHLORIDE (test code = 2215) 99 MEQ/L CARBON DIOXIDE (test code = 24 MEQ/L 220) CALCIUM (test code = 2209) 9.3 MG/DL [...] ALT (test code = 2219) 41 U/L COMPREHENSIVE METABOLIC [id number] 00:00:00 Test Item Value Reference Range Interpretation Comments GLUCOSE (test code = 2217) 138 MG/DL BUN (test code = 2208) 13 MG/DL CREATININE (test code = 2214) 0.50 MG/DL eGFR AMER. (test code 141 ML/MIN/1.73 = 15035) eGFR NON- AMER. (test 122 ML/MIN/1.73 code = 62967) CALC BUN/CREAT (test code = 26 RATIO 2235) SODIUM (test code = 2231) 141 MEQ/L POTASSIUM (test code = 2228) 4.3 MEQ/L CHLORIDE (test code = 2215) 99 MEQ/L CARBON DIOXIDE (test code = 24 MEQ/L 2206) CALCIUM (test code = 2209) 9.3 MG/DL PROTEIN, TOTAL (test code = 7.6 G/DL 2229) ALBUMIN (test code = 2201) 4.2 G/DL CALC GLOBULIN (test code = 3.4 G/DL 2240) CALC A/G RATIO (test code = 1.2 RATIO 2234) BILIRUBIN, TOTAL (test code = 0.2 MG/DL 2207) ALKALINE PHOSPHATASE (test 58 U/L code = 2204) AST (test code = 2218) 39 U/L ALT (test code = 2219) 41 U/L LIPID [id number] 00:00:00 Test Item Value Reference Range Interpretation Comments CHOLESTEROL (test code = 2210) 359 MG/DL TRIGLYCERIDES (test code = 2232) 1659 MG/DL HDL CHOLESTEROL (test code = 15 MG/DL 2220) CALC LDL CHOL (test code = 2237) NOTE MG/DL RISK RATIO LDL/HDL (test code = (NOTE) RATIO 2238) LIPID [id number] 00:00:00 Test Item Value Reference Range Interpretation Comments CHOLESTEROL (test code = 2210) 359 MG/DL TRIGLYCERIDES (test code = 2232) 1659 MG/DL HDL CHOLESTEROL (test code = 15 MG/DL 2220) CALC LDL CHOL (test code = 2237) NOTE MG/DL RISK RATIO LDL/HDL (test code = (NOTE) RATIO 2238) CBC W/AUTO [id number] 00:00:00 Test Item Value Reference Range Interpretation [...] code = 1015) 287 K/UL CBC W/AUTO [id number] 00:00:00 Test Item Value Reference Range Interpretation [...] code = 1015) 287 K/UL CBC W/AUTO [id number] 00:00:00 Test Item Value Reference Range Interpretation [...] (test code = 1015) 287 K/UL HEMOGLOBIN [id number] 00:00:00 Test Item Value Reference Range Interpretation Comments HEMOGLOBIN A1c (test code = 03546) 9.8 % HEMOGLOBIN [id number] 00:00:00 Test Item Value Reference Range Interpretation Comments HEMOGLOBIN A1c (test code = 68958) 9.8 % HEMOGLOBIN [id number] 00:00:00 Test Item Value Reference Range Interpretation Comments HEMOGLOBIN A1c (test code = 75294) 9.8 % [id number] 00:00:00 Test Item Value Reference Range Interpretation Comments TSH (test code = 2821) 2.110 UIU/ML [id number] 00:00:00 Test Item Value Reference Range Interpretation Comments TSH (test code = 2821) 2.110 UIU/ML [id number] 00:00:00 Test Item Value Reference Range Interpretation Comments TSH (test code = 2821) 2.110 UIU/ML COMPREHENSIVE METABOLIC [id number] 00:00:00 Test Item Value Reference Range Interpretation Comments GLUCOSE (test code = 2217) 138 MG/DL BUN (test code = 2208) 13 MG/DL CREATININE (test code = 2214) 0.50 MG/DL eGFR AMER. (test code 141 ML/MIN/1.73 = 62562) eGFR NON- AMER. (test 122 ML/MIN/1.73 code = 31978) CALC BUN/CREAT (test code = 26 RATIO [...] A/G RATIO (test code = 1.2 RATIO 2234) BILIRUBIN, TOTAL (test code = 0.2 MG/DL 2206) ALKALINE PHOSPHATASE (test 58 U/L code = 2204) AST (test code = 2218) 39 U/L ALT (test code = 2219) 41 U/L LIPID [id number] 00:00:00 Test Item Value Reference Range Interpretation Comments CHOLESTEROL (test code = 2210) 359 MG/DL TRIGLYCERIDES (test code = 2232) 1659 MG/DL HDL CHOLESTEROL (test code = 15 MG/DL 2219) CALC LDL CHOL (test code = 2237) NOTE MG/DL RISK RATIO LDL/HDL (test code = (NOTE) RATIO 2238) CBC W/AUTO [id number] 00:00:00 Test Item Value Reference Range Interpretation [...] code = 1015) 287 K/UL CBC W/AUTO [id number] 00:00:00 Test Item Value Reference Range Interpretation [...] (test code = 1015) 287 K/UL HEMOGLOBIN [id number] 00:00:00 Test Item Value Reference Range Interpretation Comments HEMOGLOBIN A1c (test code = 30961) 9.8 % HEMOGLOBIN [id number] 00:00:00 Test Item Value Reference Range Interpretation Comments HEMOGLOBIN A1c (test code = 83086) 9.8 % [id number] 00:00:00 Test Item Value Reference Range Interpretation Comments TSH (test code = 2821) 2.110 UIU/ML [id number] 00:00:00 Test Item Value Reference Range Interpretation Comments TSH (test code = 2821) 2.110 UIU/ML LIPID [id number] 00:00:00 Test Item Value Reference Range Interpretation Comments CHOLESTEROL (test code = 2210) 195 MG/DL TRIGLYCERIDES (test code = 2232) 505 MG/DL HDL CHOLESTEROL (test code = 35 MG/DL 2220) CALC LDL CHOL (test code = 2237) NOTE MG/DL RISK RATIO LDL/HDL (test code = (NOTE) RATIO 2238) LIPID [id number] 00:00:00 Test Item Value Reference Range Interpretation [...] T4 (THYROXINE) (test code = 7.4 UG/DL 2819) CALCULATED T7 (FTI) (test code = 2.26 2820) TSH (test code = 2821) 2.000 UIU/ML THYROID II PROFILE (T3U, T4, T7, TSH)[id number] 00:00:00 Test Item Value Reference Range Interpretation Comments T3 UPTAKE (test code = 2817) 30.5 % T4 (THYROXINE) (test code = 7.4 UG/DL 2819) CALCULATED T7 (FTI) (test code = 2.26 2820) TSH (test code = 2821) 2.000 UIU/ML LIPID [id number] 00:00:00 Test Item Value Reference Range Interpretation Comments CHOLESTEROL (test code = 2210) 195 MG/DL TRIGLYCERIDES (test code = 2232) 505 MG/DL HDL CHOLESTEROL (test code = 35 MG/DL 2220) CALC LDL CHOL (test code = 2237) NOTE MG/DL RISK RATIO LDL/HDL (test code = (NOTE) RATIO 2238) LIPID [id number] 00:00:00 Test Item Value Reference Range Interpretation [...] T4 (THYROXINE) (test code = 7.4 UG/DL 2819) CALCULATED T7 (FTI) (test code = 2.26 2820) TSH (test code = 2821) 2.000 UIU/ML THYROID II PROFILE (T3U, T4, T7, TSH)[id number] 00:00:00 Test Item Value Reference Range Interpretation Comments T3 UPTAKE (test code = 2817) 30.5 % T4 (THYROXINE) (test code = 7.4 UG/DL 2819) CALCULATED T7 (FTI) (test code = 2.26 2820) TSH (test code = 2821) 2.000 UIU/ML LIPID [id number] 00:00:00 Test Item Value Reference Range Interpretation Comments CHOLESTEROL (test code = 2210) 195 MG/DL TRIGLYCERIDES (test code = 2232) 505 MG/DL HDL CHOLESTEROL (test code = 35 MG/DL 2220) CALC LDL CHOL (test code = 2237) NOTE MG/DL RISK RATIO LDL/HDL (test code = (NOTE) RATIO 2238) LIPID [id number] 00:00:00 Test Item Value Reference Range Interpretation [...] T4 (THYROXINE) (test code = 7.4 UG/DL 2819) CALCULATED T7 (FTI) (test code = 2.26 2820) TSH (test code = 2821) 2.000 UIU/ML THYROID II PROFILE (T3U, T4, T7, TSH)[id number] 00:00:00 Test Item Value Reference Range Interpretation Comments T3 UPTAKE (test code = 2817) 30.5 % T4 (THYROXINE) (test code = 7.4 UG/DL 2819) CALCULATED T7 (FTI) (test code = 2.26 2820) TSH (test code = 2821) 2.000 UIU/ML LIPID [id number] 00:00:00 Test Item Value Reference Range Interpretation [...] T4 (THYROXINE) (test code = 7.4 UG/DL 2819) CALCULATED T7 (FTI) (test code = 2.26 2820) TSH (test code = 2821) 2.000 UIU/ML COMPREHENSIVE METABOLIC [id number] 00:00:00 Test Item Value Reference Range Interpretation Comments GLUCOSE (test code = 2217) 154 MG/DL BUN (test code = 2208) 12 MG/DL CREATININE (test code = 2214) 0.54 MG/DL eGFR AMER. (test code 139 ML/MIN/1.73 = 36227) eGFR NON- AMER. (test 120 ML/MIN/1.73 code = 67723) CALC BUN/CREAT (test code = 22 RATIO 2235) SODIUM (test code = 2231) 141 MEQ/L POTASSIUM (test code = 2228) 4.3 MEQ/L CHLORIDE (test code = 2215) 101 MEQ/L CARBON DIOXIDE (test code = 26 MEQ/L 2205) CALCIUM (test code = 2209) 9.8 MG/DL PROTEIN, TOTAL (test code = 7.6 G/DL 2228) ALBUMIN (test code = 2201) 4.7 G/DL CALC GLOBULIN (test code = 2.9 G/DL 2240) CALC A/G RATIO (test code = 1.6 RATIO 2234) BILIRUBIN, TOTAL (test code = 0.1 MG/DL 2206) ALKALINE PHOSPHATASE (test 42 U/L code = 2204) AST (test code = 2218) 17 U/L ALT (test code = 2219) 22 U/L COMPREHENSIVE METABOLIC [id number] 00:00:00 Test Item Value Reference Range Interpretation Comments GLUCOSE (test code = 2217) 154 MG/DL BUN (test code = 2208) 12 MG/DL CREATININE (test code = 2214) 0.54 MG/DL eGFR AMER. (test code 139 ML/MIN/1.73 = 62195) eGFR NON- AMER. (test 120 ML/MIN/1.73 code = 35329) CALC BUN/CREAT (test code = 22 RATIO 2235) SODIUM (test code = 2231) 141 MEQ/L POTASSIUM (test code = 2228) 4.3 MEQ/L CHLORIDE (test code = 2215) 101 MEQ/L CARBON DIOXIDE (test code = 26 MEQ/L 2205) CALCIUM (test code = 2209) 9.8 MG/DL PROTEIN, TOTAL (test code = 7.6 G/DL 2228) ALBUMIN (test code = 2201) 4.7 G/DL CALC GLOBULIN (test code = 2.9 G/DL 2240) CALC A/G RATIO (test code = 1.6 RATIO 2234) BILIRUBIN, TOTAL (test code = 0.1 MG/DL 2206) ALKALINE PHOSPHATASE (test 42 U/L code = 2204) AST (test code = 2218) 17 U/L ALT (test code = 2219) 22 U/L LIPID [id number] 00:00:00 Test Item Value Reference Range Interpretation Comments CHOLESTEROL (test code = 2210) 243 MG/DL TRIGLYCERIDES (test code = 2232) 1140 MG/DL HDL CHOLESTEROL (test code = 31 MG/DL 2220) CALC LDL CHOL (test code = 2237) NOTE MG/DL RISK RATIO LDL/HDL (test code = (NOTE) RATIO 2238) LIPID [id number] 00:00:00 Test Item Value Reference Range Interpretation Comments CHOLESTEROL (test code = 2210) 243 MG/DL TRIGLYCERIDES (test code = 2232) 1140 MG/DL HDL CHOLESTEROL (test code = 31 MG/DL 2220) CALC LDL CHOL (test code = 2237) NOTE MG/DL RISK RATIO LDL/HDL (test code = (NOTE) RATIO 2238) CBC W/AUTO [id number] 00:00:00 Test Item Value Reference Range Interpretation [...] code = 1015) 229 K/UL CBC W/AUTO [id number] 00:00:00 Test Item Value Reference Range Interpretation [...] code = 1015) 229 K/UL CBC W/AUTO [id number] 00:00:00 Test Item Value Reference Range Interpretation [...] (test code = 1015) 229 K/UL HEMOGLOBIN [id number] 00:00:00 Test Item Value Reference Range Interpretation Comments HEMOGLOBIN A1c (test code = 74762) 7.7 % HEMOGLOBIN [id number] 00:00:00 Test Item Value Reference Range Interpretation Comments HEMOGLOBIN A1c (test code = 76143) 7.7 % HEMOGLOBIN [id number] 00:00:00 Test Item Value Reference Range Interpretation Comments HEMOGLOBIN A1c (test code = 38788) 7.7 % COMPREHENSIVE METABOLIC [id number] 00:00:00 Test Item Value Reference Range Interpretation Comments GLUCOSE (test code = 2217) 154 MG/DL BUN (test code = 2208) 12 MG/DL CREATININE (test code = 2214) 0.54 MG/DL eGFR AMER. (test code 139 ML/MIN/1.73 = 84130) eGFR NON- AMER. (test 120 ML/MIN/1.73 code = 33717) CALC BUN/CREAT (test code = 22 RATIO 2235) SODIUM (test code = 2231) 141 MEQ/L POTASSIUM (test code = 2228) 4.3 MEQ/L CHLORIDE (test code = 2215) 101 MEQ/L CARBON DIOXIDE (test code = 26 MEQ/L 2205) CALCIUM (test code = 2209) 9.8 MG/DL PROTEIN, TOTAL (test code = 7.6 G/DL 2228) ALBUMIN (test code = 2201) 4.7 G/DL CALC GLOBULIN (test code = 2.9 G/DL 2239) CALC A/G RATIO (test code = 1.6 RATIO 2234) BILIRUBIN, TOTAL (test code = 0.1 MG/DL 2206) ALKALINE PHOSPHATASE (test 42 U/L code = 2204) AST (test code = 2218) 17 U/L ALT (test code = 2219) 22 U/L COMPREHENSIVE METABOLIC [id number] 00:00:00 Test Item Value Reference Range Interpretation Comments GLUCOSE (test code = 2217) 154 MG/DL BUN (test code = 2208) 12 MG/DL CREATININE (test code = 2214) 0.54 MG/DL eGFR AMER. (test code 139 ML/MIN/1.73 = 60960) eGFR NON- AMER. (test 120 ML/MIN/1.73 code = 10207) CALC BUN/CREAT (test code = 22 RATIO 2235) SODIUM (test code = 2231) 141 MEQ/L POTASSIUM (test code = 2228) 4.3 MEQ/L CHLORIDE (test code = 2215) 101 MEQ/L CARBON DIOXIDE (test code = 26 MEQ/L 2205) CALCIUM (test code = 2209) 9.8 MG/DL PROTEIN, TOTAL (test code = 7.6 G/DL 2228) ALBUMIN (test code = 2201) 4.7 G/DL CALC GLOBULIN (test code = 2.9 G/DL 224) CALC A/G RATIO (test code = 1.6 RATIO 2234) BILIRUBIN, TOTAL (test code = 0.1 MG/DL 2206) ALKALINE PHOSPHATASE (test 42 U/L code = 2204) AST (test code = 2218) 17 U/L ALT (test code = 2219) 22 U/L LIPID [id number] 00:00:00 Test Item Value Reference Range Interpretation Comments CHOLESTEROL (test code = 2210) 243 MG/DL TRIGLYCERIDES (test code = 2232) 1140 MG/DL HDL CHOLESTEROL (test code = 31 MG/DL 2220) CALC LDL CHOL (test code = 2237) NOTE MG/DL RISK RATIO LDL/HDL (test code = (NOTE) RATIO 2238) LIPID [id number] 00:00:00 Test Item Value Reference Range Interpretation Comments CHOLESTEROL (test code = 2210) 243 MG/DL TRIGLYCERIDES (test code = 2232) 1140 MG/DL HDL CHOLESTEROL (test code = 31 MG/DL 2220) CALC LDL CHOL (test code = 2237) NOTE MG/DL RISK RATIO LDL/HDL (test code = (NOTE) RATIO 2238) CBC W/AUTO [id number] 00:00:00 Test Item Value Reference Range Interpretation [...] code = 1015) 229 K/UL CBC W/AUTO [id number] 00:00:00 Test Item Value Reference Range Interpretation [...] code = 1015) 229 K/UL CBC W/AUTO [id number] 00:00:00 Test Item Value Reference Range Interpretation [...] (test code = 1015) 229 K/UL HEMOGLOBIN [id number] 00:00:00 Test Item Value Reference Range Interpretation Comments HEMOGLOBIN A1c (test code = 55434) 7.7 % HEMOGLOBIN [id number] 00:00:00 Test Item Value Reference Range Interpretation Comments HEMOGLOBIN A1c (test code = 37205) 7.7 % HEMOGLOBIN [id number] 00:00:00 Test Item Value Reference Range Interpretation Comments HEMOGLOBIN A1c (test code = 45494) 7.7 % COMPREHENSIVE METABOLIC [id number] 00:00:00 Test Item Value Reference Range Interpretation Comments GLUCOSE (test code = 2217) 154 MG/DL BUN (test code = 2208) 12 MG/DL CREATININE (test code = 2214) 0.54 MG/DL eGFR AMER. (test code 139 ML/MIN/1.73 = 95730) eGFR NON- AMER. (test 120 ML/MIN/1.73 code = 04035) CALC BUN/CREAT (test code = 22 RATIO 2235) SODIUM (test code = 2231) 141 MEQ/L POTASSIUM (test code = 2228) 4.3 MEQ/L CHLORIDE (test code = 2215) 101 MEQ/L CARBON DIOXIDE (test code = 26 MEQ/L 2205) CALCIUM (test code = 2209) 9.8 MG/DL PROTEIN, TOTAL (test code = 7.6 G/DL 2228) ALBUMIN (test code = 2201) 4.7 G/DL CALC GLOBULIN (test code = 2.9 G/DL 0) CALC A/G RATIO (test code = 1.6 RATIO 2234) BILIRUBIN, TOTAL (test code = 0.1 MG/DL 2206) ALKALINE PHOSPHATASE (test 42 U/L code = 2204) AST (test code = 2218) 17 U/L ALT (test code = 2219) 22 U/L COMPREHENSIVE METABOLIC [id number] 00:00:00 Test Item Value Reference Range Interpretation Comments GLUCOSE (test code = 2217) 154 MG/DL BUN (test code = 2208) 12 MG/DL CREATININE (test code = 2214) 0.54 MG/DL eGFR AMER. (test code 139 ML/MIN/1.73 = 14126) eGFR NON- AMER. (test 120 ML/MIN/1.73 code = 37397) CALC BUN/CREAT (test code = 22 RATIO 2235) SODIUM (test code = 2231) 141 MEQ/L POTASSIUM (test code = 2228) 4.3 MEQ/L CHLORIDE (test code = 2215) 101 MEQ/L CARBON DIOXIDE (test code = 26 MEQ/L 2205) CALCIUM (test code = 2209) 9.8 MG/DL PROTEIN, TOTAL (test code = 7.6 G/DL 2228) ALBUMIN (test code = 2201) 4.7 G/DL CALC GLOBULIN (test code = 2.9 G/DL 2239) CALC A/G RATIO (test code = 1.6 RATIO 4) BILIRUBIN, TOTAL (test code = 0.1 MG/DL 2206) ALKALINE PHOSPHATASE (test 42 U/L code = 2204) AST (test code = 2218) 17 U/L ALT (test code = 2219) 22 U/L LIPID [id number] 00:00:00 Test Item Value Reference Range Interpretation Comments CHOLESTEROL (test code = 2210) 243 MG/DL TRIGLYCERIDES (test code = 2232) 1140 MG/DL HDL CHOLESTEROL (test code = 31 MG/DL 2220) CALC LDL CHOL (test code = 2237) NOTE MG/DL RISK RATIO LDL/HDL (test code = (NOTE) RATIO 2238) LIPID [id number] 00:00:00 Test Item Value Reference Range Interpretation Comments CHOLESTEROL (test code = 2210) 243 MG/DL TRIGLYCERIDES (test code = 2232) 1140 MG/DL HDL CHOLESTEROL (test code = 31 MG/DL 2220) CALC LDL CHOL (test code = 2237) NOTE MG/DL RISK RATIO LDL/HDL (test code = (NOTE) RATIO 2238) CBC W/AUTO [id number] 00:00:00 Test Item Value Reference Range Interpretation [...] code = 1015) 229 K/UL CBC W/AUTO [id number] 00:00:00 Test Item Value Reference Range Interpretation [...] code = 1015) 229 K/UL CBC W/AUTO [id number] 00:00:00 Test Item Value Reference Range Interpretation [...] (test code = 1015) 229 K/UL HEMOGLOBIN [id number] 00:00:00 Test Item Value Reference Range Interpretation Comments HEMOGLOBIN A1c (test code = 73754) 7.7 % HEMOGLOBIN [id number] 00:00:00 Test Item Value Reference Range Interpretation Comments HEMOGLOBIN A1c (test code = 40032) 7.7 % HEMOGLOBIN [id number] 00:00:00 Test Item Value Reference Range Interpretation Comments HEMOGLOBIN A1c (test code = 48569) 7.7 % COMPREHENSIVE METABOLIC [id number] 00:00:00 Test Item Value Reference Range Interpretation Comments GLUCOSE (test code = 2217) 154 MG/DL BUN (test code = 2208) 12 MG/DL CREATININE (test code = 2214) 0.54 MG/DL eGFR AMER. (test code 139 ML/MIN/1.73 = 66274) eGFR NON- AMER. (test 120 ML/MIN/1.73 code = 52922) CALC BUN/CREAT (test code = 22 RATIO 2235) SODIUM (test code = 2231) 141 MEQ/L POTASSIUM (test code = 2228) 4.3 MEQ/L CHLORIDE (test code = 2215) 101 MEQ/L CARBON DIOXIDE (test code = 26 MEQ/L 2205) CALCIUM (test code = 2209) 9.8 MG/DL PROTEIN, TOTAL (test code = 7.6 G/DL 2228) ALBUMIN (test code = 2201) 4.7 G/DL CALC GLOBULIN (test code = 2.9 G/DL 2240) CALC A/G RATIO (test code = 1.6 RATIO 2234) BILIRUBIN, TOTAL (test code = 0.1 MG/DL 2206) ALKALINE PHOSPHATASE (test 42 U/L code = 2204) AST (test code = 2218) 17 U/L ALT (test code = 2219) 22 U/L LIPID [id number] 00:00:00 Test Item Value Reference Range Interpretation Comments CHOLESTEROL (test code = 2210) 243 MG/DL TRIGLYCERIDES (test code = 2232) 1140 MG/DL HDL CHOLESTEROL (test code = 31 MG/DL 0) CALC LDL CHOL (test code = 2237) NOTE MG/DL RISK RATIO LDL/HDL (test code = (NOTE) RATIO 2238) CBC W/AUTO [id number] 00:00:00 Test Item Value Reference Range Interpretation [...] code = 1015) 229 K/UL CBC W/AUTO [id number] 00:00:00 Test Item Value Reference Range Interpretation [...] (test code = 1015) 229 K/UL HEMOGLOBIN [id number] 00:00:00 Test Item Value Reference Range Interpretation Comments HEMOGLOBIN A1c (test code = 14001) 7.7 % HEMOGLOBIN [id number] 00:00:00 Test Item Value Reference Range Interpretation Comments HEMOGLOBIN A1c (test code = 62363) 7.7 % [id number] 00:00:00 Test Item Value Reference Range Interpretation Comments MAGNESIUM (test code = 2226) 1.4 MG/DL [id number] 00:00:00 Test Item Value Reference Range Interpretation Comments MAGNESIUM (test code = 2226) 1.4 MG/DL [id number] 00:00:00 Test Item Value Reference Range Interpretation Comments MAGNESIUM (test code = 2226) 1.4 MG/DL COMPREHENSIVE METABOLIC [id number] 00:00:00 Test Item Value Reference Range Interpretation Comments GLUCOSE (test code = 2217) 234 MG/DL BUN (test code = 2208) 17 MG/DL CREATININE (test code = 2214) 0.54 MG/DL eGFR AMER. (test code 139 ML/MIN/1.73 = 05729) eGFR NON- AMER. (test 120 ML/MIN/1.73 code = 23674) CALC BUN/CREAT (test code = 31 RATIO 2235) SODIUM (test code = 2231) 136 MEQ/L POTASSIUM (test code = 2228) 4.7 MEQ/L CHLORIDE (test code = 2215) 95 MEQ/L CARBON DIOXIDE (test code = 21 MEQ/L 2205) CALCIUM (test code = 2209) 10.0 MG/DL PROTEIN, TOTAL (test code = 7.5 G/DL 2228) ALBUMIN (test code = 2201) 4.3 G/DL CALC GLOBULIN (test code = 3.2 G/DL 2240) CALC A/G RATIO (test code = 1.3 RATIO 2234) BILIRUBIN, TOTAL (test code = 0.2 MG/DL 2206) ALKALINE PHOSPHATASE (test 53 U/L code = 2204) AST (test code = 2218) 16 U/L ALT (test code = 2219) 22 U/L COMPREHENSIVE METABOLIC [id number] 00:00:00 Test Item Value Reference Range Interpretation Comments GLUCOSE (test code = 2217) 234 MG/DL BUN (test code = 2208) 17 MG/DL CREATININE (test code = 2214) 0.54 MG/DL eGFR AMER. (test code 139 ML/MIN/1.73 = 34906) eGFR NON- AMER. (test 120 ML/MIN/1.73 code = 20613) CALC BUN/CREAT (test code = 31 RATIO 2235) SODIUM (test code = 2231) 136 MEQ/L [...] (test code = 2219) 22 U/L HEMOGLOBIN [id number] 00:00:00 Test Item Value Reference Range Interpretation Comments HEMOGLOBIN A1c (test code = 90289) 7.7 % HEMOGLOBIN [id number] 00:00:00 Test Item Value Reference Range Interpretation Comments HEMOGLOBIN A1c (test code = 94244) 7.7 % HEMOGLOBIN [id number] 00:00:00 Test Item Value Reference Range Interpretation Comments HEMOGLOBIN A1c (test code = 49250) 7.7 % CBC W/AUTO [id number] 00:00:00 Test Item Value Reference Range Interpretation [...] code = 1015) 224 K/UL CBC W/AUTO [id number] 00:00:00 Test Item Value Reference Range Interpretation [...] code = 1015) 224 K/UL CBC W/AUTO [id number] 00:00:00 Test Item Value Reference Range Interpretation [...] T4 (THYROXINE) (test code = 3.7 UG/DL 2818) CALCULATED T7 (FTI) (test code = 0.91 2820) TSH (test code = 2821) <0.10 UIU/ML THYROID II PROFILE (T3U, T4, T7, TSH)2016-11-19 00:00:00 Test Item Value Reference Range Interpretation Comments T3 UPTAKE (test code = 2817) 24.7 % T4 (THYROXINE) (test code = 3.7 UG/DL 2819) CALCULATED T7 (FTI) (test code = 0.91 2820) TSH (test code = 2821) <0.10 UIU/ML [id number] 00:00:00 Test Item Value Reference Range Interpretation Comments MAGNESIUM (test code = 2226) 1.4 MG/DL [id number] 00:00:00 Test Item Value Reference Range Interpretation Comments MAGNESIUM (test code = 2226) 1.4 MG/DL [id number] 00:00:00 Test Item Value Reference Range Interpretation Comments MAGNESIUM (test code = 2226) 1.4 MG/DL COMPREHENSIVE METABOLIC [id number] 00:00:00 Test Item Value Reference Range Interpretation Comments GLUCOSE (test code = 2217) 234 MG/DL BUN (test code = 2208) 17 MG/DL CREATININE (test code = 2214) 0.54 MG/DL eGFR AMER. (test code 139 ML/MIN/1.73 = 85018) eGFR NON- AMER. (test 120 ML/MIN/1.73 code = 34532) CALC BUN/CREAT (test code = 31 RATIO 2235) SODIUM (test code = 2231) 136 MEQ/L POTASSIUM (test code = 2228) 4.7 MEQ/L CHLORIDE (test code = 2215) 95 MEQ/L CARBON DIOXIDE (test code = 21 MEQ/L 2205) CALCIUM (test code = 2209) 10.0 MG/DL PROTEIN, TOTAL (test code = 7.5 G/DL 2228) ALBUMIN (test code = 2201) 4.3 G/DL CALC GLOBULIN (test code = 3.2 G/DL 2240) CALC A/G RATIO (test code = 1.3 RATIO 2234) BILIRUBIN, TOTAL (test code = 0.2 MG/DL 2206) ALKALINE PHOSPHATASE (test 53 U/L code = 2204) AST (test code = 2218) 16 U/L ALT (test code = 2219) 22 U/L COMPREHENSIVE METABOLIC [id number] 00:00:00 Test Item Value Reference Range Interpretation Comments GLUCOSE (test code = 2217) 234 MG/DL BUN (test code = 2208) 17 MG/DL CREATININE (test code = 2214) 0.54 MG/DL eGFR AMER. (test code 139 ML/MIN/1.73 = 55000) eGFR NON- AMER. (test 120 ML/MIN/1.73 code = 58413) CALC BUN/CREAT (test code = 31 RATIO 2235) SODIUM (test code = 2231) 136 MEQ/L [...] (test code = 2219) 22 U/L HEMOGLOBIN [id number] 00:00:00 Test Item Value Reference Range Interpretation Comments HEMOGLOBIN A1c (test code = 34285) 7.7 % HEMOGLOBIN [id number] 00:00:00 Test Item Value Reference Range Interpretation Comments HEMOGLOBIN A1c (test code = 75506) 7.7 % HEMOGLOBIN [id number] 00:00:00 Test Item Value Reference Range Interpretation Comments HEMOGLOBIN A1c (test code = 13599) 7.7 % CBC W/AUTO [id number] 00:00:00 Test Item Value Reference Range Interpretation [...] code = 1015) 224 K/UL CBC W/AUTO [id number] 00:00:00 Test Item Value Reference Range Interpretation [...] code = 1015) 224 K/UL CBC W/AUTO [id number] 00:00:00 Test Item Value Reference Range Interpretation [...] T4 (THYROXINE) (test code = 3.7 UG/DL 281) CALCULATED T7 (FTI) (test code = 0.91 2820) TSH (test code = 2821) <0.10 UIU/ML THYROID II PROFILE (T3U, T4, T7, TSH)2016-11-19 00:00:00 Test Item Value Reference Range Interpretation Comments T3 UPTAKE (test code = 2817) 24.7 % T4 (THYROXINE) (test code = 3.7 UG/DL 281) CALCULATED T7 (FTI) (test code = 0.91 2820) TSH (test code = 2821) <0.10 UIU/ML [id number] 00:00:00 Test Item Value Reference Range Interpretation Comments MAGNESIUM (test code = 2226) 1.4 MG/DL [id number] 00:00:00 Test Item Value Reference Range Interpretation Comments MAGNESIUM (test code = 2226) 1.4 MG/DL [id number] 00:00:00 Test Item Value Reference Range Interpretation Comments MAGNESIUM (test code = 2226) 1.4 MG/DL COMPREHENSIVE METABOLIC [id number] 00:00:00 Test Item Value Reference Range Interpretation Comments GLUCOSE (test code = 2217) 234 MG/DL BUN (test code = 2208) 17 MG/DL CREATININE (test code = 2214) 0.54 MG/DL eGFR AMER. (test code 139 ML/MIN/1.73 = 05611) eGFR NON- AMER. (test 120 ML/MIN/1.73 code = 09079) CALC BUN/CREAT (test code = 31 RATIO 2235) SODIUM (test code = 2231) 136 MEQ/L [...] ALT (test code = 2219) 22 U/L COMPREHENSIVE METABOLIC [id number] 00:00:00 Test Item Value Reference Range Interpretation Comments GLUCOSE (test code = 2217) 234 MG/DL BUN (test code = 2208) 17 MG/DL CREATININE (test code = 2214) 0.54 MG/DL eGFR AMER. (test code 139 ML/MIN/1.73 = 06875) eGFR NON- AMER. (test 120 ML/MIN/1.73 code = 11479) CALC BUN/CREAT (test code = 31 RATIO 2235) SODIUM (test code = 2231) 136 MEQ/L [...] A/G RATIO (test code = 1.3 RATIO 4) BILIRUBIN, TOTAL (test code = 0.2 MG/DL 2206) ALKALINE PHOSPHATASE (test 53 U/L code = 2204) AST (test code = 2218) 16 U/L ALT (test code = 2219) 22 U/L HEMOGLOBIN [id number] 00:00:00 Test Item Value Reference Range Interpretation Comments HEMOGLOBIN A1c (test code = 81572) 7.7 % HEMOGLOBIN [id number] 00:00:00 Test Item Value Reference Range Interpretation Comments HEMOGLOBIN A1c (test code = 27041) 7.7 % HEMOGLOBIN [id number] 00:00:00 Test Item Value Reference Range Interpretation Comments HEMOGLOBIN A1c (test code = 49244) 7.7 % CBC W/AUTO [id number] 00:00:00 Test Item Value Reference Range Interpretation [...] code = 1015) 224 K/UL CBC W/AUTO [id number] 00:00:00 Test Item Value Reference Range Interpretation [...] code = 1015) 224 K/UL CBC W/AUTO [id number] 00:00:00 Test Item Value Reference Range Interpretation [...] TSH (test code = 2821) <0.10 UIU/ML THYROID II PROFILE (T3U, T4, T7, TSH)2016-11-19 00:00:00 Test Item Value Reference Range Interpretation Comments T3 UPTAKE (test code = 2817) 24.7 % T4 (THYROXINE) (test code = 3.7 UG/DL 2819) CALCULATED T7 (FTI) (test code = 0.91 2820) TSH (test code = 2821) <0.10 UIU/ML [id number] 00:00:00 Test Item Value Reference Range Interpretation Comments MAGNESIUM (test code = 2226) 1.4 MG/DL [id number] 00:00:00 Test Item Value Reference Range Interpretation Comments MAGNESIUM (test code = 2226) 1.4 MG/DL COMPREHENSIVE METABOLIC [id number] 00:00:00 Test Item Value Reference Range Interpretation Comments GLUCOSE (test code = 2217) 234 MG/DL BUN (test code = 2208) 17 MG/DL CREATININE (test code = 2214) 0.54 MG/DL eGFR AMER. (test code 139 ML/MIN/1.73 = 73465) eGFR NON- AMER. (test 120 ML/MIN/1.73 code = 88397) CALC BUN/CREAT (test code = 31 RATIO 2235) SODIUM (test code = 2231) 136 MEQ/L [...] BILIRUBIN, TOTAL (test code = 0.2 MG/DL 2207) ALKALINE PHOSPHATASE (test 53 U/L code = 2204) AST (test code = 2218) 16 U/L ALT (test code = 2219) 22 U/L HEMOGLOBIN [id number] 00:00:00 Test Item Value Reference Range Interpretation Comments HEMOGLOBIN A1c (test code = 40672) 7.7 % HEMOGLOBIN [id number] 00:00:00 Test Item Value Reference Range Interpretation Comments HEMOGLOBIN A1c (test code = 87362) 7.7 % CBC W/AUTO [id number] 00:00:00 Test Item Value Reference Range Interpretation [...] code = 1015) 224 K/UL CBC W/AUTO [id number] 00:00:00 Test Item Value Reference Range Interpretation [...] <0.10 UIU/ML MARKO (ANTI-NUCLEAR AB) WITH REFLEX [id number] 00:00:00 Test Item Value Reference Range Interpretation Comments ANTI-NUCLEAR ANTIBODIES (test code = NEGATIVE 3506) MARKO (ANTI-NUCLEAR AB) WITH REFLEX [id number] 00:00:00 Test Item Value Reference Range Interpretation Comments ANTI-NUCLEAR ANTIBODIES (test code = NEGATIVE 3506) DHEA [id number] 00:00:00 Test Item Value Reference Range Interpretation Comments DHEA SULFATE (test code = 4225) 77 UG/DL DHEA [id number] 00:00:00 Test Item Value Reference Range Interpretation Comments DHEA SULFATE (test code = 4225) 77 UG/DL MARKO (ANTI-NUCLEAR AB) WITH REFLEX [id number] 00:00:00 Test Item Value Reference Range Interpretation Comments ANTI-NUCLEAR ANTIBODIES (test code = NEGATIVE 3506) MARKO (ANTI-NUCLEAR AB) WITH REFLEX [id number] 00:00:00 Test Item Value Reference Range Interpretation Comments ANTI-NUCLEAR ANTIBODIES (test code = NEGATIVE 3506) DHEA [id number] 00:00:00 Test Item Value Reference Range Interpretation Comments DHEA SULFATE (test code = 4225) 77 UG/DL DHEA [id number] 00:00:00 Test Item Value Reference Range Interpretation Comments DHEA SULFATE (test code = 4225) 77 UG/DL MARKO (ANTI-NUCLEAR AB) WITH REFLEX [id number] 00:00:00 Test Item Value Reference Range Interpretation Comments ANTI-NUCLEAR ANTIBODIES (test code = NEGATIVE 3506) MARKO (ANTI-NUCLEAR AB) WITH REFLEX [id number] 00:00:00 Test Item Value Reference Range Interpretation Comments ANTI-NUCLEAR ANTIBODIES (test code = NEGATIVE 3506) DHEA [id number] 00:00:00 Test Item Value Reference Range Interpretation Comments DHEA SULFATE (test code = 4225) 77 UG/DL DHEA [id number] 00:00:00 Test Item Value Reference Range Interpretation Comments DHEA SULFATE (test code = 4225) 77 UG/DL MARKO (ANTI-NUCLEAR AB) WITH REFLEX [id number] 00:00:00 Test Item Value Reference Range Interpretation Comments ANTI-NUCLEAR ANTIBODIES (test code = NEGATIVE 3506) DHEA [id number] 00:00:00 Test Item Value Reference Range Interpretation Comments DHEA SULFATE (test code = 4225) 77 UG/DL VITAMIN D,1,31-[id number] 00:00:00 Test Item Value Reference Range Interpretation Comments VITAMIN D,1,25-DIHYDROXY (test 11.3 PG/ML code = 4960) VITAMIN D,1,32-[id number] 00:00:00 Test Item Value Reference Range Interpretation Comments VITAMIN D,1,25-DIHYDROXY (test 11.3 PG/ML code = 4960) VITAMIN B 12 AND FOLIC [id number] 00:00:00 Test Item Value Reference Range Interpretation Comments VITAMIN B-12 (test code = 2840) 925 PG/ML FOLIC ACID (test code = 2695) >24.0 NG/ML VITAMIN B 12 AND FOLIC [id number] 00:00:00 Test Item Value Reference Range Interpretation [...] TSH (test code = 2821) 0.4 UIU/ML THYROID II PROFILE (T3U, T4, T7, TSH)2016-03-22 00:00:00 Test Item Value Reference Range Interpretation Comments T3 UPTAKE (test code = 2817) 31.0 % T4 (THYROXINE) (test code = 2819) 7.4 UG/DL CALCULATED T7 (FTI) (test code = 2.29 2820) TSH (test code = 2821) 0.4 UIU/ML LIPID [id number] 00:00:00 Test Item Value Reference Range Interpretation Comments CHOLESTEROL (test code = 2210) 172 MG/DL TRIGLYCERIDES (test code = 2232) 136 MG/DL HDL CHOLESTEROL (test code = 2220) 44 MG/DL CALC LDL CHOL (test code = 2237) 101 MG/DL RISK RATIO LDL/HDL (test code = 2.29 RATIO 2238) LIPID [id number] 00:00:00 Test Item Value Reference Range Interpretation Comments CHOLESTEROL (test code = 2210) 172 MG/DL TRIGLYCERIDES (test code = 2232) 136 MG/DL HDL CHOLESTEROL (test code = 2220) 44 MG/DL CALC LDL CHOL (test code = 2237) 101 MG/DL RISK RATIO LDL/HDL (test code = 2.29 RATIO 2238) [id number] 00:00:00 Test Item Value Reference Range Interpretation Comments TESTOSTERONE (test code = 2830) <12 NG/DL TESTOSTERONE REF RANGE (test code = (NOTE) 21946) [id number] 00:00:00 Test Item Value Reference Range Interpretation Comments TESTOSTERONE (test code = 2830) <12 NG/DL TESTOSTERONE REF RANGE (test code = (NOTE) 34666) [id number] 00:00:00 Test Item Value Reference Range Interpretation Comments PROLACTIN (test code = 2800) 5.8 NG/ML [id number] 00:00:00 Test Item Value Reference Range Interpretation Comments PROLACTIN (test code = 2800) 5.8 NG/ML FSH + LH [id number] 00:00:00 Test Item Value Reference Range Interpretation Comments FOLLICLE STIM HORMONE (test code = 8.9 MIU/ML 2700) LUTEINIZING HORMONE (test code = 6.5 MIU/ML 2776) FSH + LH [id number] 00:00:00 Test Item Value Reference Range Interpretation Comments FOLLICLE STIM HORMONE (test code = 8.9 MIU/ML 2700) LUTEINIZING HORMONE (test code = 6.5 MIU/ML 2776) VITAMIN D,1,87-[id number] 00:00:00 Test Item Value Reference Range Interpretation Comments VITAMIN D,1,25-DIHYDROXY (test 11.3 PG/ML code = 4960) VITAMIN D,1,19-[id number] 00:00:00 Test Item Value Reference Range Interpretation Comments VITAMIN D,1,25-DIHYDROXY (test 11.3 PG/ML code = 4960) VITAMIN B 12 AND FOLIC [id number] 00:00:00 Test Item Value Reference Range Interpretation Comments VITAMIN B-12 (test code = 2840) 925 PG/ML FOLIC ACID (test code = 2695) >24.0 NG/ML VITAMIN B 12 AND FOLIC [id number] 00:00:00 Test Item Value Reference Range Interpretation [...] TSH (test code = 2821) 0.4 UIU/ML THYROID II PROFILE (T3U, T4, T7, TSH)2016-03-22 00:00:00 Test Item Value Reference Range Interpretation Comments T3 UPTAKE (test code = 2817) 31.0 % T4 (THYROXINE) (test code = 2819) 7.4 UG/DL CALCULATED T7 (FTI) (test code = 2.29 2820) TSH (test code = 2821) 0.4 UIU/ML LIPID [id number] 00:00:00 Test Item Value Reference Range Interpretation Comments CHOLESTEROL (test code = 2210) 172 MG/DL TRIGLYCERIDES (test code = 2232) 136 MG/DL HDL CHOLESTEROL (test code = 2220) 44 MG/DL CALC LDL CHOL (test code = 2237) 101 MG/DL RISK RATIO LDL/HDL (test code = 2.29 RATIO 2238) LIPID [id number] 00:00:00 Test Item Value Reference Range Interpretation Comments CHOLESTEROL (test code = 2210) 172 MG/DL TRIGLYCERIDES (test code = 2232) 136 MG/DL HDL CHOLESTEROL (test code = 2220) 44 MG/DL CALC LDL CHOL (test code = 2237) 101 MG/DL RISK RATIO LDL/HDL (test code = 2.29 RATIO 2238) [id number] 00:00:00 Test Item Value Reference Range Interpretation Comments TESTOSTERONE (test code = 2830) <12 NG/DL TESTOSTERONE REF RANGE (test code = (NOTE) 95541) [id number] 00:00:00 Test Item Value Reference Range Interpretation Comments TESTOSTERONE (test code = 2830) <12 NG/DL TESTOSTERONE REF RANGE (test code = (NOTE) 65811) [id number] 00:00:00 Test Item Value Reference Range Interpretation Comments PROLACTIN (test code = 2800) 5.8 NG/ML [id number] 00:00:00 Test Item Value Reference Range Interpretation Comments PROLACTIN (test code = 2800) 5.8 NG/ML FSH + LH [id number] 00:00:00 Test Item Value Reference Range Interpretation Comments FOLLICLE STIM HORMONE (test code = 8.9 MIU/ML 2700) LUTEINIZING HORMONE (test code = 6.5 MIU/ML 2776) FSH + LH [id number] 00:00:00 Test Item Value Reference Range Interpretation Comments FOLLICLE STIM HORMONE (test code = 8.9 MIU/ML 2700) LUTEINIZING HORMONE (test code = 6.5 MIU/ML 2776) VITAMIN D,1,65-[id number] 00:00:00 Test Item Value Reference Range Interpretation Comments VITAMIN D,1,25-DIHYDROXY (test 11.3 PG/ML code = 4960) VITAMIN D,1,71-[id number] 00:00:00 Test Item Value Reference Range Interpretation Comments VITAMIN D,1,25-DIHYDROXY (test 11.3 PG/ML code = 4960) VITAMIN B 12 AND FOLIC [id number] 00:00:00 Test Item Value Reference Range Interpretation Comments VITAMIN B-12 (test code = 2840) 925 PG/ML FOLIC ACID (test code = 2695) >24.0 NG/ML VITAMIN B 12 AND FOLIC [id number] 00:00:00 Test Item Value Reference Range Interpretation [...] TSH (test code = 2821) 0.4 UIU/ML THYROID II PROFILE (T3U, T4, T7, TSH)2016-03-22 00:00:00 Test Item Value Reference Range Interpretation Comments T3 UPTAKE (test code = 2817) 31.0 % T4 (THYROXINE) (test code = 2819) 7.4 UG/DL CALCULATED T7 (FTI) (test code = 2.29 2820) TSH (test code = 2821) 0.4 UIU/ML LIPID [id number] 00:00:00 Test Item Value Reference Range Interpretation Comments CHOLESTEROL (test code = 2210) 172 MG/DL TRIGLYCERIDES (test code = 2232) 136 MG/DL HDL CHOLESTEROL (test code = 2220) 44 MG/DL CALC LDL CHOL (test code = 2237) 101 MG/DL RISK RATIO LDL/HDL (test code = 2.29 RATIO 2238) LIPID [id number] 00:00:00 Test Item Value Reference Range Interpretation Comments CHOLESTEROL (test code = 2210) 172 MG/DL TRIGLYCERIDES (test code = 2232) 136 MG/DL HDL CHOLESTEROL (test code = 2220) 44 MG/DL CALC LDL CHOL (test code = 2237) 101 MG/DL RISK RATIO LDL/HDL (test code = 2.29 RATIO 2238) [id number] 00:00:00 Test Item Value Reference Range Interpretation Comments TESTOSTERONE (test code = 2830) <12 NG/DL TESTOSTERONE REF RANGE (test code = (NOTE) 58338) [id number] 00:00:00 Test Item Value Reference Range Interpretation Comments TESTOSTERONE (test code = 2830) <12 NG/DL TESTOSTERONE REF RANGE (test code = (NOTE) 86882) [id number] 00:00:00 Test Item Value Reference Range Interpretation Comments PROLACTIN (test code = 2800) 5.8 NG/ML [id number] 00:00:00 Test Item Value Reference Range Interpretation Comments PROLACTIN (test code = 2800) 5.8 NG/ML FSH + LH [id number] 00:00:00 Test Item Value Reference Range Interpretation Comments FOLLICLE STIM HORMONE (test code = 8.9 MIU/ML 2700) LUTEINIZING HORMONE (test code = 6.5 MIU/ML 2776) FSH + LH [id number] 00:00:00 Test Item Value Reference Range Interpretation Comments FOLLICLE STIM HORMONE (test code = 8.9 MIU/ML 2700) LUTEINIZING HORMONE (test code = 6.5 MIU/ML 2776) VITAMIN D,1,00-[id number] 00:00:00 Test Item Value Reference Range Interpretation Comments VITAMIN D,1,25-DIHYDROXY (test 11.3 PG/ML code = 4960) VITAMIN B 12 AND FOLIC [id number] 00:00:00 Test Item Value Reference Range Interpretation [...] (test code = 2821) 0.4 UIU/ML LIPID [id number] 00:00:00 Test Item Value Reference Range Interpretation Comments CHOLESTEROL (test code = 2210) 172 MG/DL TRIGLYCERIDES (test code = 2232) 136 MG/DL HDL CHOLESTEROL (test code = 2220) 44 MG/DL CALC LDL CHOL (test code = 2237) 101 MG/DL RISK RATIO LDL/HDL (test code = 2.29 RATIO 2238) [id number] 00:00:00 Test Item Value Reference Range Interpretation Comments TESTOSTERONE (test code = 2830) <12 NG/DL TESTOSTERONE REF RANGE (test code = (NOTE) 56071) [id number] 00:00:00 Test Item Value Reference Range Interpretation Comments PROLACTIN (test code = 2800) 5.8 NG/ML FSH + LH [id number] 00:00:00 Test Item Value Reference Range Interpretation Comments FOLLICLE STIM HORMONE (test code = 8.9 MIU/ML 2700) LUTEINIZING HORMONE (test code = 6.5 MIU/ML 2776) SEDIMENTATION [id number] 00:00:00 Test Item Value Reference Range Interpretation Comments SEDIMENTATION RATE (test code = 35 MM/HOUR 1017) SEDIMENTATION [id number] 00:00:00 Test Item Value Reference Range Interpretation Comments SEDIMENTATION RATE (test code = 35 MM/HOUR 1017) CBC W/AUTO [id number] 00:00:00 Test Item Value Reference Range Interpretation [...] code = 1015) 246 K/UL CBC W/AUTO [id number] 00:00:00 Test Item Value Reference Range Interpretation [...] code = 1015) 246 K/UL CBC W/AUTO [id number] 00:00:00 Test Item Value Reference Range Interpretation [...] (test code = 1015) 246 K/UL HEMOGLOBIN [id number] 00:00:00 Test Item Value Reference Range Interpretation Comments HEMOGLOBIN A1c (test code = 10631) 6.2 % HEMOGLOBIN [id number] 00:00:00 Test Item Value Reference Range Interpretation Comments HEMOGLOBIN A1c (test code = 60439) 6.2 % HEMOGLOBIN [id number] 00:00:00 Test Item Value Reference Range Interpretation Comments HEMOGLOBIN A1c (test code = 27209) 6.2 % SEDIMENTATION [id number] 00:00:00 Test Item Value Reference Range Interpretation Comments SEDIMENTATION RATE (test code = 35 MM/HOUR 1017) SEDIMENTATION [id number] 00:00:00 Test Item Value Reference Range Interpretation Comments SEDIMENTATION RATE (test code = 35 MM/HOUR 1017) CBC W/AUTO [id number] 00:00:00 Test Item Value Reference Range Interpretation [...] code = 1015) 246 K/UL CBC W/AUTO [id number] 00:00:00 Test Item Value Reference Range Interpretation [...] code = 1015) 246 K/UL CBC W/AUTO [id number] 00:00:00 Test Item Value Reference Range Interpretation [...] (test code = 1015) 246 K/UL HEMOGLOBIN [id number] 00:00:00 Test Item Value Reference Range Interpretation Comments HEMOGLOBIN A1c (test code = 61772) 6.2 % HEMOGLOBIN [id number] 00:00:00 Test Item Value Reference Range Interpretation Comments HEMOGLOBIN A1c (test code = 01908) 6.2 % HEMOGLOBIN [id number] 00:00:00 Test Item Value Reference Range Interpretation Comments HEMOGLOBIN A1c (test code = 67123) 6.2 % SEDIMENTATION [id number] 00:00:00 Test Item Value Reference Range Interpretation Comments SEDIMENTATION RATE (test code = 35 MM/HOUR 1017) SEDIMENTATION [id number] 00:00:00 Test Item Value Reference Range Interpretation Comments SEDIMENTATION RATE (test code = 35 MM/HOUR 1017) CBC W/AUTO [id number] 00:00:00 Test Item Value Reference Range Interpretation [...] code = 1015) 246 K/UL CBC W/AUTO [id number] 00:00:00 Test Item Value Reference Range Interpretation [...] code = 1015) 246 K/UL CBC W/AUTO [id number] 00:00:00 Test Item Value Reference Range Interpretation [...] (test code = 1015) 246 K/UL HEMOGLOBIN [id number] 00:00:00 Test Item Value Reference Range Interpretation Comments HEMOGLOBIN A1c (test code = 75144) 6.2 % HEMOGLOBIN [id number] 00:00:00 Test Item Value Reference Range Interpretation Comments HEMOGLOBIN A1c (test code = 75587) 6.2 % HEMOGLOBIN [id number] 00:00:00 Test Item Value Reference Range Interpretation Comments HEMOGLOBIN A1c (test code = 36633) 6.2 % SEDIMENTATION [id number] 00:00:00 Test Item Value Reference Range Interpretation Comments SEDIMENTATION RATE (test code = 35 MM/HOUR 1017) CBC W/AUTO [id number] 00:00:00 Test Item Value Reference Range Interpretation [...] code = 1015) 246 K/UL CBC W/AUTO [id number] 00:00:00 Test Item Value Reference Range Interpretation [...] (test code = 1015) 246 K/UL HEMOGLOBIN [id number] 00:00:00 Test Item Value Reference Range Interpretation Comments HEMOGLOBIN A1c (test code = 46113) 6.2 % HEMOGLOBIN [id number] 00:00:00 Test Item Value Reference Range Interpretation Comments HEMOGLOBIN A1c (test code = 33104) 6.2 % COMPREHENSIVE METABOLIC [id number] 00:00:00 Test Item Value Reference Range Interpretation Comments GLUCOSE (test code = 2217) 100 MG/DL BUN (test code = 2208) 10 MG/DL CREATININE (test code = 2214) 0.61 MG/DL eGFR AMER. (test code 134 ML/MIN/1.73 = 85928) eGFR NON- AMER. (test 116 ML/MIN/1.73 code = 59129) CALCULATED BUN/CREAT (test 16 RATIO code = [...] ALKALINE PHOSPHATASE (test 35 U/L code = 2204) SGOT (AST) (test code = 2218) 16 U/L SGPT (ALT) (test code = 2219) 16 U/L COMPREHENSIVE METABOLIC [id number] 00:00:00 Test Item Value Reference Range Interpretation Comments GLUCOSE (test code = 2217) 100 MG/DL BUN (test code = 2208) 10 MG/DL CREATININE (test code = 2214) 0.61 MG/DL eGFR AMER. (test code 134 ML/MIN/1.73 = 77883) eGFR NON- AMER. (test 116 ML/MIN/1.73 code = 56282) CALCULATED BUN/CREAT (test 16 RATIO code = [...] ALKALINE PHOSPHATASE (test 35 U/L code = 2204) SGOT (AST) (test code = 2218) 16 U/L SGPT (ALT) (test code = 2219) 16 U/L LIPID [id number] 00:00:00 Test Item Value Reference Range Interpretation Comments CHOLESTEROL (test code = 2210) 166 MG/DL TRIGLYCERIDES (test code = 2232) 72 MG/DL HDL CHOLESTEROL (test code = 2220) 47 MG/DL CALCULATED LDL CHOL (test code = 105 MG/DL 2236) RISK RATIO LDL/HDL (test code = 2.23 RATIO 2237) LIPID [id number] 00:00:00 Test Item Value Reference Range Interpretation Comments CHOLESTEROL (test code = 2210) 166 MG/DL TRIGLYCERIDES (test code = 2232) 72 MG/DL HDL CHOLESTEROL (test code = 2220) 47 MG/DL CALCULATED LDL CHOL (test code = 105 MG/DL 2236) RISK RATIO LDL/HDL (test code = 2.23 RATIO 2238) [id number] 00:00:00 Test Item Value Reference Range Interpretation Comments TSH (test code = 2821) 1.2 UIU/ML [id number] 00:00:00 Test Item Value Reference Range Interpretation Comments TSH (test code = 2821) 1.2 UIU/ML [id number] 00:00:00 Test Item Value Reference Range Interpretation Comments TSH (test code = 2821) 1.2 UIU/ML COMPREHENSIVE METABOLIC [id number] 00:00:00 Test Item Value Reference Range Interpretation Comments GLUCOSE (test code = 2217) 100 MG/DL BUN (test code = 2208) 10 MG/DL CREATININE (test code = 2214) 0.61 MG/DL eGFR AMER. (test code 134 ML/MIN/1.73 = 67213) eGFR NON- AMER. (test 116 ML/MIN/1.73 code = 38309) CALCULATED BUN/CREAT (test 16 RATIO code = [...] ALKALINE PHOSPHATASE (test 35 U/L code = 2204) SGOT (AST) (test code = 2218) 16 U/L SGPT (ALT) (test code = 2219) 16 U/L COMPREHENSIVE METABOLIC [id number] 00:00:00 Test Item Value Reference Range Interpretation Comments GLUCOSE (test code = 2217) 100 MG/DL BUN (test code = 2208) 10 MG/DL CREATININE (test code = 2214) 0.61 MG/DL eGFR AMER. (test code 134 ML/MIN/1.73 = 90091) eGFR NON- AMER. (test 116 ML/MIN/1.73 code = 65129) CALCULATED BUN/CREAT (test 16 RATIO code = [...] ALKALINE PHOSPHATASE (test 35 U/L code = 2204) SGOT (AST) (test code = 2218) 16 U/L SGPT (ALT) (test code = 2219) 16 U/L LIPID [id number] 00:00:00 Test Item Value Reference Range Interpretation Comments CHOLESTEROL (test code = 2210) 166 MG/DL TRIGLYCERIDES (test code = 2232) 72 MG/DL HDL CHOLESTEROL (test code = 2220) 47 MG/DL CALCULATED LDL CHOL (test code = 105 MG/DL 2236) RISK RATIO LDL/HDL (test code = 2.23 RATIO 2238) LIPID [id number] 00:00:00 Test Item Value Reference Range Interpretation Comments CHOLESTEROL (test code = 2210) 166 MG/DL TRIGLYCERIDES (test code = 2232) 72 MG/DL HDL CHOLESTEROL (test code = 2220) 47 MG/DL CALCULATED LDL CHOL (test code = 105 MG/DL 7) RISK RATIO LDL/HDL (test code = 2.23 RATIO 2238) [id number] 00:00:00 Test Item Value Reference Range Interpretation Comments TSH (test code = 2821) 1.2 UIU/ML [id number] 00:00:00 Test Item Value Reference Range Interpretation Comments TSH (test code = 2821) 1.2 UIU/ML [id number] 00:00:00 Test Item Value Reference Range Interpretation Comments TSH (test code = 2821) 1.2 UIU/ML COMPREHENSIVE METABOLIC [id number] 00:00:00 Test Item Value Reference Range Interpretation Comments GLUCOSE (test code = 2217) 100 MG/DL BUN (test code = 2208) 10 MG/DL CREATININE (test code = 2214) 0.61 MG/DL eGFR AMER. (test code 134 ML/MIN/1.73 = 02595) eGFR NON- AMER. (test 116 ML/MIN/1.73 code = 33915) CALCULATED BUN/CREAT (test 16 RATIO code = [...] ALKALINE PHOSPHATASE (test 35 U/L code = 2204) SGOT (AST) (test code = 2218) 16 U/L SGPT (ALT) (test code = 2219) 16 U/L COMPREHENSIVE METABOLIC [id number] 00:00:00 Test Item Value Reference Range Interpretation Comments GLUCOSE (test code = 2217) 100 MG/DL BUN (test code = 2208) 10 MG/DL CREATININE (test code = 2214) 0.61 MG/DL eGFR AMER. (test code 134 ML/MIN/1.73 = 48157) eGFR NON- AMER. (test 116 ML/MIN/1.73 code = 05968) CALCULATED BUN/CREAT (test 16 RATIO code = [...] ALKALINE PHOSPHATASE (test 35 U/L code = 2204) SGOT (AST) (test code = 2218) 16 U/L SGPT (ALT) (test code = 2219) 16 U/L LIPID [id number] 00:00:00 Test Item Value Reference Range Interpretation Comments CHOLESTEROL (test code = 2210) 166 MG/DL TRIGLYCERIDES (test code = 2232) 72 MG/DL HDL CHOLESTEROL (test code = 2220) 47 MG/DL CALCULATED LDL CHOL (test code = 105 MG/DL 2236) RISK RATIO LDL/HDL (test code = 2.23 RATIO 2238) LIPID [id number] 00:00:00 Test Item Value Reference Range Interpretation Comments CHOLESTEROL (test code = 2210) 166 MG/DL TRIGLYCERIDES (test code = 2232) 72 MG/DL HDL CHOLESTEROL (test code = 2220) 47 MG/DL CALCULATED LDL CHOL (test code = 105 MG/DL 7) RISK RATIO LDL/HDL (test code = 2.23 RATIO 2238) [id number] 00:00:00 Test Item Value Reference Range Interpretation Comments TSH (test code = 2821) 1.2 UIU/ML [id number] 00:00:00 Test Item Value Reference Range Interpretation Comments TSH (test code = 2821) 1.2 UIU/ML [id number] 00:00:00 Test Item Value Reference Range Interpretation Comments TSH (test code = 2821) 1.2 UIU/ML COMPREHENSIVE METABOLIC [id number] 00:00:00 Test Item Value Reference Range Interpretation Comments GLUCOSE (test code = 2217) 100 MG/DL BUN (test code = 2208) 10 MG/DL CREATININE (test code = 2214) 0.61 MG/DL eGFR AMER. (test code 134 ML/MIN/1.73 = 76291) eGFR NON- AMER. (test 116 ML/MIN/1.73 code = 64993) CALCULATED BUN/CREAT (test 16 RATIO code = [...] ALKALINE PHOSPHATASE (test 35 U/L code = 2204) SGOT (AST) (test code = 2218) 16 U/L SGPT (ALT) (test code = 2219) 16 U/L LIPID [id number] 00:00:00 Test Item Value Reference Range Interpretation Comments CHOLESTEROL (test code = 2210) 166 MG/DL TRIGLYCERIDES (test code = 2232) 72 MG/DL HDL CHOLESTEROL (test code = 2220) 47 MG/DL CALCULATED LDL CHOL (test code = 105 MG/DL 2236) RISK RATIO LDL/HDL (test code = 2.23 RATIO 2238) [id number] 00:00:00 Test Item Value Reference Range Interpretation Comments TSH (test code = 2821) 1.2 UIU/ML [id number] 00:00:00 Test Item Value Reference Range Interpretation Comments TSH (test code = 2821) 1.2 UIU/ML CBC W/AUTO [id number] 00:00:00 Test Item Value Reference Range Interpretation [...] code = 1015) 243 K/UL CBC W/AUTO [id number] 00:00:00 Test Item Value Reference Range Interpretation [...] code = 1015) 243 K/UL CBC W/AUTO [id number] 00:00:00 Test Item Value Reference Range Interpretation [...] (test code = 1015) 243 K/UL HEMOGLOBIN [id number] 00:00:00 Test Item Value Reference Range Interpretation Comments HEMOGLOBIN A1c (test code = 73011) 6.4 % HEMOGLOBIN [id number] 00:00:00 Test Item Value Reference Range Interpretation Comments HEMOGLOBIN A1c (test code = 30498) 6.4 % HEMOGLOBIN [id number] 00:00:00 Test Item Value Reference Range Interpretation Comments HEMOGLOBIN A1c (test code = 33307) 6.4 % CBC W/AUTO [id number] 00:00:00 Test Item Value Reference Range Interpretation [...] code = 1015) 243 K/UL CBC W/AUTO [id number] 00:00:00 Test Item Value Reference Range Interpretation [...] code = 1015) 243 K/UL CBC W/AUTO [id number] 00:00:00 Test Item Value Reference Range Interpretation [...] (test code = 1015) 243 K/UL HEMOGLOBIN [id number] 00:00:00 Test Item Value Reference Range Interpretation Comments HEMOGLOBIN A1c (test code = 25293) 6.4 % HEMOGLOBIN [id number] 00:00:00 Test Item Value Reference Range Interpretation Comments HEMOGLOBIN A1c (test code = 50400) 6.4 % HEMOGLOBIN [id number] 00:00:00 Test Item Value Reference Range Interpretation Comments HEMOGLOBIN A1c (test code = 66413) 6.4 % CBC W/AUTO [id number] 00:00:00 Test Item Value Reference Range Interpretation [...] code = 1015) 243 K/UL CBC W/AUTO [id number] 00:00:00 Test Item Value Reference Range Interpretation [...] code = 1015) 243 K/UL CBC W/AUTO [id number] 00:00:00 Test Item Value Reference Range Interpretation [...] (test code = 1015) 243 K/UL HEMOGLOBIN [id number] 00:00:00 Test Item Value Reference Range Interpretation Comments HEMOGLOBIN A1c (test code = 47872) 6.4 % HEMOGLOBIN [id number] 00:00:00 Test Item Value Reference Range Interpretation Comments HEMOGLOBIN A1c (test code = 58379) 6.4 % HEMOGLOBIN [id number] 00:00:00 Test Item Value Reference Range Interpretation Comments HEMOGLOBIN A1c (test code = 79285) 6.4 % CBC W/AUTO [id number] 00:00:00 Test Item Value Reference Range Interpretation [...] code = 1015) 243 K/UL CBC W/AUTO [id number] 00:00:00 Test Item Value Reference Range Interpretation [...] (test code = 1015) 243 K/UL HEMOGLOBIN [id number] 00:00:00 Test Item Value Reference Range Interpretation Comments HEMOGLOBIN A1c (test code = 80552) 6.4 % HEMOGLOBIN [id number] 00:00:00 Test Item Value Reference Range Interpretation Comments HEMOGLOBIN A1c (test code = 17959) 6.4 % CHLAMYDIA, AMPLIFIED, [id number] 00:00:00 Test Item Value Reference Range Interpretation Comments CHLAMYDIA, AMPLIFIED (test code = NEGATIVE 37163) CHLAMYDIA, AMPLIFIED, [id number] 00:00:00 Test Item Value Reference Range Interpretation Comments CHLAMYDIA, AMPLIFIED (test code = NEGATIVE 45974) GC, AMPLIFIED, [id number] 00:00:00 Test Item Value Reference Range Interpretation Comments GONORRHEA, AMPLIFIED (test code = NEGATIVE 36156) GC, AMPLIFIED, [id number] 00:00:00 Test Item Value Reference Range Interpretation Comments GONORRHEA, AMPLIFIED (test code = NEGATIVE 94131) HIV AB/AG COMBO RFLX [id number] 00:00:00 Test Item Value Reference Range Interpretation Comments HIV AB/AG COMBO RFLX CONF (test NON-REACTIVE code = 3514) HIV AB/AG COMBO RFLX [id number] 00:00:00 Test Item Value Reference Range Interpretation Comments HIV AB/AG COMBO RFLX CONF (test NON-REACTIVE code = 3514) [id number] 00:00:00 Test Item Value Reference Range Interpretation Comments RPR RESULT (test code = NON-REACTIVE 3501) RPR TITER (test code = 3500) NOT INDIC. TITER [id number] 00:00:00 Test Item Value Reference Range Interpretation Comments RPR RESULT (test code = NON-REACTIVE 3501) RPR TITER (test code = 3500) NOT INDIC. TITER [id number] 00:00:00 Test Item Value Reference Range Interpretation [...] INTERPRETATION HEPATITIS B: (NOTE) (test code = 64868) INTERPRETATION HEPATITIS C: (NOTE) (test code = 95758) HEPATITIS PROFILE (A,B,C)2015-06-24 00:00:00 Test Item Value [...] INTERPRETATION HEPATITIS B: (NOTE) (test code = 57250) INTERPRETATION HEPATITIS C: (NOTE) (test code = 25164) COMPREHENSIVE METABOLIC [id number] 00:00:00 Test Item Value Reference Range Interpretation Comments GLUCOSE (test code = 2217) 105 MG/DL BUN (test code = 2208) 11 MG/DL CREATININE (test code = 2214) 0.80 MG/DL eGFR AMER. (test code 109 ML/MIN/1.73 = 42552) eGFR NON- AMER. (test 94 ML/MIN/1.73 code = 31045) CALCULATED BUN/CREAT (test 14 RATIO code = 2235) SODIUM (test code = 2231) 139 MEQ/L POTASSIUM (test code = 2228) 3.8 MEQ/L CHLORIDE (test code = 2215) 102 MEQ/L CARBON DIOXIDE (test code = 22 MEQ/L 2206) CALCIUM (test code = 2209) 9.4 MG/DL PROTEIN, TOTAL (test code = 7.4 G/DL 222) ALBUMIN (test code = 2201) 4.4 G/DL CALCULATED GLOBULIN (test 3.0 G/DL code = 2240) CALCULATED A/G RATIO (test 1.5 RATIO code = 2234) BILIRUBIN, TOTAL (test code = 0.5 MG/DL 220) ALKALINE PHOSPHATASE (test 36 U/L code = 2204) SGOT (AST) (test code = 2218) 14 U/L SGPT (ALT) (test code = 2219) 14 U/L COMPREHENSIVE METABOLIC [id number] 00:00:00 Test Item Value Reference Range Interpretation Comments GLUCOSE (test code = 2217) 105 MG/DL BUN (test code = 2208) 11 MG/DL CREATININE (test code = 2214) 0.80 MG/DL eGFR AMER. (test code 109 ML/MIN/1.73 = 34397) eGFR NON- AMER. (test 94 ML/MIN/1.73 code = 60560) CALCULATED BUN/CREAT (test 14 RATIO code = 2235) SODIUM (test code = 2231) 139 MEQ/L POTASSIUM (test code = 2228) 3.8 MEQ/L CHLORIDE (test code = 2215) 102 MEQ/L CARBON DIOXIDE (test code = 22 MEQ/L 2206) CALCIUM (test code = 2209) 9.4 MG/DL PROTEIN, TOTAL (test code = 7.4 G/DL 222) ALBUMIN (test code = 2201) 4.4 G/DL CALCULATED GLOBULIN (test 3.0 G/DL code = 2240) CALCULATED A/G RATIO (test 1.5 RATIO code = 2234) BILIRUBIN, TOTAL (test code = 0.5 MG/DL 2207) ALKALINE PHOSPHATASE (test 36 U/L code = 2204) SGOT (AST) (test code = 2218) 14 U/L SGPT (ALT) (test code = 2219) 14 U/L LIPID [id number] 00:00:00 Test Item Value Reference Range Interpretation Comments CHOLESTEROL (test code = 2210) 211 MG/DL TRIGLYCERIDES (test code = 2232) 209 MG/DL HDL CHOLESTEROL (test code = 2220) 38 MG/DL CALCULATED LDL CHOL (test code = 131 MG/DL 2237) RISK RATIO LDL/HDL (test code = 3.45 RATIO 2238) LIPID [id number] 00:00:00 Test Item Value Reference Range Interpretation Comments CHOLESTEROL (test code = 2210) 211 MG/DL TRIGLYCERIDES (test code = 2232) 209 MG/DL HDL CHOLESTEROL (test code = 2220) 38 MG/DL CALCULATED LDL CHOL (test code = 131 MG/DL 2237) RISK RATIO LDL/HDL (test code = 3.45 RATIO 2238) CBC W/AUTO [id number] 00:00:00 Test Item Value Reference Range Interpretation [...] code = 1015) 254 K/UL CBC W/AUTO [id number] 00:00:00 Test Item Value Reference Range Interpretation [...] code = 1015) 254 K/UL CBC W/AUTO [id number] 00:00:00 Test Item Value Reference Range Interpretation [...] (test code = 1015) 254 K/UL HEMOGLOBIN [id number] 00:00:00 Test Item Value Reference Range Interpretation Comments HEMOGLOBIN A1c (test code = 72260) 6.9 % HEMOGLOBIN [id number] 00:00:00 Test Item Value Reference Range Interpretation Comments HEMOGLOBIN A1c (test code = 61564) 6.9 % HEMOGLOBIN [id number] 00:00:00 Test Item Value Reference Range Interpretation Comments HEMOGLOBIN A1c (test code = 41715) 6.9 % [id number] 00:00:00 Test Item Value Reference Range Interpretation Comments TSH (test code = 2821) 0.5 UIU/ML [id number] 00:00:00 Test Item Value Reference Range Interpretation Comments TSH (test code = 2821) 0.5 UIU/ML [id number] 00:00:00 Test Item Value Reference Range Interpretation Comments TSH (test code = 2821) 0.5 UIU/ML HEPATITIS A IgM [REFLEX]2015-06-24 00:00:00 Test Item Value Reference Range Interpretation Comments HEPATITIS A IgM (test code = NON-REACTIVE 2728) CHLAMYDIA, AMPLIFIED, [id number] 00:00:00 Test Item Value Reference Range Interpretation Comments CHLAMYDIA, AMPLIFIED (test code = NEGATIVE 47758) CHLAMYDIA, AMPLIFIED, [id number] 00:00:00 Test Item Value Reference Range Interpretation Comments CHLAMYDIA, AMPLIFIED (test code = NEGATIVE 29766) GC, AMPLIFIED, [id number] 00:00:00 Test Item Value Reference Range Interpretation Comments GONORRHEA, AMPLIFIED (test code = NEGATIVE 96591) GC, AMPLIFIED, [id number] 00:00:00 Test Item Value Reference Range Interpretation Comments GONORRHEA, AMPLIFIED (test code = NEGATIVE 13948) HIV AB/AG COMBO RFLX [id number] 00:00:00 Test Item Value Reference Range Interpretation Comments HIV AB/AG COMBO RFLX CONF (test NON-REACTIVE code = 3514) HIV AB/AG COMBO RFLX [id number] 00:00:00 Test Item Value Reference Range Interpretation Comments HIV AB/AG COMBO RFLX CONF (test NON-REACTIVE code = 3514) [id number] 00:00:00 Test Item Value Reference Range Interpretation Comments RPR RESULT (test code = NON-REACTIVE 3501) RPR TITER (test code = 3500) NOT INDIC. TITER [id number] 00:00:00 Test Item Value Reference Range Interpretation Comments RPR RESULT (test code = NON-REACTIVE 3501) RPR TITER (test code = 3500) NOT INDIC. TITER [id number] 00:00:00 Test Item Value Reference Range Interpretation Comments RPR RESULT (test code = NON-REACTIVE 3501) RPR TITER (test code = 3500) NOT INDIC. TITER HEPATITIS PROFILE (A,B,C)2015-06-24 00:00:00 Test Item Value Reference Range Interpretation Comments HEPATITIS A TOTAL AB (test code REACTIVE = 2725) HEPATITIS B SURF AG (test code = NON-REACTIVE 9) HEP B CORE TOTAL AB (test code = NON-REACTIVE 2729) HEPATITIS B SURFACE AB (test NON-REACTIVE code = 2737) HEPATITIS C ANTIBODY (test code NON-REACTIVE = 4675) INTERPRETATION HEPATITIS A: (NOTE) (test code = 2552) INTERPRETATION HEPATITIS B: (NOTE) (test code = 31578) INTERPRETATION HEPATITIS C: (NOTE) (test code = 59839) HEPATITIS PROFILE (A,B,C)2015-06-24 00:00:00 Test Item Value [...] INTERPRETATION HEPATITIS B: (NOTE) (test code = 47293) INTERPRETATION HEPATITIS C: (NOTE) (test code = 90255) COMPREHENSIVE METABOLIC [id number] 00:00:00 Test Item Value Reference Range Interpretation Comments GLUCOSE (test code = 2217) 105 MG/DL BUN (test code = 2208) 11 MG/DL CREATININE (test code = 2214) 0.80 MG/DL eGFR AMER. (test code 109 ML/MIN/1.73 = 03644) eGFR NON- AMER. (test 94 ML/MIN/1.73 code = 30934) CALCULATED BUN/CREAT (test 14 RATIO code = 2235) SODIUM (test code = 2231) 139 MEQ/L POTASSIUM (test code = 2228) 3.8 MEQ/L CHLORIDE (test code = 2215) 102 MEQ/L CARBON DIOXIDE (test code = 22 MEQ/L 2205) CALCIUM (test code = 2209) 9.4 MG/DL [...] (ALT) (test code = 2219) 14 U/L COMPREHENSIVE METABOLIC [id number] 00:00:00 Test Item Value Reference Range Interpretation Comments GLUCOSE (test code = 2217) 105 MG/DL BUN (test code = 2208) 11 MG/DL CREATININE (test code = 2214) 0.80 MG/DL eGFR AMER. (test code 109 ML/MIN/1.73 = 97868) eGFR NON- AMER. (test 94 ML/MIN/1.73 code = 58469) CALCULATED BUN/CREAT (test 14 RATIO code = [...] (test code = 2219) 14 U/L LIPID [id number] 00:00:00 Test Item Value Reference Range Interpretation Comments CHOLESTEROL (test code = 2210) 211 MG/DL TRIGLYCERIDES (test code = 2232) 209 MG/DL HDL CHOLESTEROL (test code = 2220) 38 MG/DL CALCULATED LDL CHOL (test code = 131 MG/DL 2237) RISK RATIO LDL/HDL (test code = 3.45 RATIO 2238) LIPID [id number] 00:00:00 Test Item Value Reference Range Interpretation Comments CHOLESTEROL (test code = 2210) 211 MG/DL TRIGLYCERIDES (test code = 2232) 209 MG/DL HDL CHOLESTEROL (test code = 2220) 38 MG/DL CALCULATED LDL CHOL (test code = 131 MG/DL 2237) RISK RATIO LDL/HDL (test code = 3.45 RATIO 2238) CBC W/AUTO [id number] 00:00:00 Test Item Value Reference Range Interpretation [...] code = 1015) 254 K/UL CBC W/AUTO [id number] 00:00:00 Test Item Value Reference Range Interpretation [...] code = 1015) 254 K/UL CBC W/AUTO [id number] 00:00:00 Test Item Value Reference Range Interpretation [...] (test code = 1015) 254 K/UL HEMOGLOBIN [id number] 00:00:00 Test Item Value Reference Range Interpretation Comments HEMOGLOBIN A1c (test code = 73231) 6.9 % HEMOGLOBIN [id number] 00:00:00 Test Item Value Reference Range Interpretation Comments HEMOGLOBIN A1c (test code = 26606) 6.9 % HEMOGLOBIN [id number] 00:00:00 Test Item Value Reference Range Interpretation Comments HEMOGLOBIN A1c (test code = 83085) 6.9 % [id number] 00:00:00 Test Item Value Reference Range Interpretation Comments TSH (test code = 2821) 0.5 UIU/ML [id number] 00:00:00 Test Item Value Reference Range Interpretation Comments TSH (test code = 2821) 0.5 UIU/ML [id number] 00:00:00 Test Item Value Reference Range Interpretation Comments TSH (test code = 2821) 0.5 UIU/ML HEPATITIS A IgM [REFLEX]2015-06-24 00:00:00 Test Item Value Reference Range Interpretation Comments HEPATITIS A IgM (test code = NON-REACTIVE 2728) CHLAMYDIA, AMPLIFIED, [id number] 00:00:00 Test Item Value Reference Range Interpretation Comments CHLAMYDIA, AMPLIFIED (test code = NEGATIVE 85307) CHLAMYDIA, AMPLIFIED, [id number] 00:00:00 Test Item Value Reference Range Interpretation Comments CHLAMYDIA, AMPLIFIED (test code = NEGATIVE 15184) GC, AMPLIFIED, [id number] 00:00:00 Test Item Value Reference Range Interpretation Comments GONORRHEA, AMPLIFIED (test code = NEGATIVE 03306) GC, AMPLIFIED, [id number] 00:00:00 Test Item Value Reference Range Interpretation Comments GONORRHEA, AMPLIFIED (test code = NEGATIVE 37513) HIV AB/AG COMBO RFLX [id number] 00:00:00 Test Item Value Reference Range Interpretation Comments HIV AB/AG COMBO RFLX CONF (test NON-REACTIVE code = 3514) HIV AB/AG COMBO RFLX [id number] 00:00:00 Test Item Value Reference Range Interpretation Comments HIV AB/AG COMBO RFLX CONF (test NON-REACTIVE code = 3514) [id number] 00:00:00 Test Item Value Reference Range Interpretation Comments RPR RESULT (test code = NON-REACTIVE 3501) RPR TITER (test code = 3500) NOT INDIC. TITER [id number] 00:00:00 Test Item Value Reference Range Interpretation Comments RPR RESULT (test code = NON-REACTIVE 3501) RPR TITER (test code = 3500) NOT INDIC. TITER [id number] 00:00:00 Test Item Value Reference Range Interpretation [...] INTERPRETATION HEPATITIS B: (NOTE) (test code = 85907) INTERPRETATION HEPATITIS C: (NOTE) (test code = 39216) HEPATITIS PROFILE (A,B,C)[id number] 00:00:00 Test Item Value [...] INTERPRETATION HEPATITIS B: (NOTE) (test code = 23269) INTERPRETATION HEPATITIS C: (NOTE) (test code = 17815) COMPREHENSIVE METABOLIC [id number] 00:00:00 Test Item Value Reference Range Interpretation Comments GLUCOSE (test code = 2217) 105 MG/DL BUN (test code = 2208) 11 MG/DL CREATININE (test code = 2214) 0.80 MG/DL eGFR AMER. (test code 109 ML/MIN/1.73 = 44857) eGFR NON- AMER. (test 94 ML/MIN/1.73 code = 27799) CALCULATED BUN/CREAT (test 14 RATIO code = 2235) SODIUM (test code = 2231) 139 MEQ/L POTASSIUM (test code = 2228) 3.8 MEQ/L CHLORIDE (test code = 2215) 102 MEQ/L CARBON DIOXIDE (test code = 22 MEQ/L 2206) CALCIUM (test code = 2209) 9.4 MG/DL [...] (ALT) (test code = 2219) 14 U/L COMPREHENSIVE METABOLIC [id number] 00:00:00 Test Item Value Reference Range Interpretation Comments GLUCOSE (test code = 2217) 105 MG/DL BUN (test code = 2208) 11 MG/DL CREATININE (test code = 2214) 0.80 MG/DL eGFR AMER. (test code 109 ML/MIN/1.73 = 91893) eGFR NON- AMER. (test 94 ML/MIN/1.73 code = 61000) CALCULATED BUN/CREAT (test 14 RATIO code = 2235) SODIUM (test code = 2231) 139 MEQ/L POTASSIUM (test code = 2228) 3.8 MEQ/L CHLORIDE (test code = 2215) 102 MEQ/L CARBON DIOXIDE (test code = 22 MEQ/L 2206) CALCIUM (test code = 2209) 9.4 MG/DL [...] (test code = 2219) 14 U/L LIPID [id number] 00:00:00 Test Item Value Reference Range Interpretation Comments CHOLESTEROL (test code = 2210) 211 MG/DL TRIGLYCERIDES (test code = 2232) 209 MG/DL HDL CHOLESTEROL (test code = 2220) 38 MG/DL CALCULATED LDL CHOL (test code = 131 MG/DL 2237) RISK RATIO LDL/HDL (test code = 3.45 RATIO 2238) LIPID [id number] 00:00:00 Test Item Value Reference Range Interpretation Comments CHOLESTEROL (test code = 2210) 211 MG/DL TRIGLYCERIDES (test code = 2232) 209 MG/DL HDL CHOLESTEROL (test code = 2220) 38 MG/DL CALCULATED LDL CHOL (test code = 131 MG/DL 2237) RISK RATIO LDL/HDL (test code = 3.45 RATIO 2238) CBC W/AUTO [id number] 00:00:00 Test Item Value Reference Range Interpretation [...] code = 1015) 254 K/UL CBC W/AUTO [id number] 00:00:00 Test Item Value Reference Range Interpretation [...] code = 1015) 254 K/UL CBC W/AUTO [id number] 00:00:00 Test Item Value Reference Range Interpretation [...] (test code = 1015) 254 K/UL HEMOGLOBIN [id number] 00:00:00 Test Item Value Reference Range Interpretation Comments HEMOGLOBIN A1c (test code = 97974) 6.9 % HEMOGLOBIN [id number] 00:00:00 Test Item Value Reference Range Interpretation Comments HEMOGLOBIN A1c (test code = 03165) 6.9 % HEMOGLOBIN [id number] 00:00:00 Test Item Value Reference Range Interpretation Comments HEMOGLOBIN A1c (test code = 62713) 6.9 % [id number] 00:00:00 Test Item Value Reference Range Interpretation Comments TSH (test code = 2821) 0.5 UIU/ML [id number] 00:00:00 Test Item Value Reference Range Interpretation Comments TSH (test code = 2821) 0.5 UIU/ML [id number] 00:00:00 Test Item Value Reference Range Interpretation Comments TSH (test code = 2821) 0.5 UIU/ML HEPATITIS A IgM [REFLEX][id number] 00:00:00 Test Item Value Reference Range Interpretation Comments HEPATITIS A IgM (test code = NON-REACTIVE 2728) CHLAMYDIA, AMPLIFIED, [id number] 00:00:00 Test Item Value Reference Range Interpretation Comments CHLAMYDIA, AMPLIFIED (test code = NEGATIVE 50336) GC, AMPLIFIED, [id number] 00:00:00 Test Item Value Reference Range Interpretation Comments GONORRHEA, AMPLIFIED (test code = NEGATIVE 71611) HIV AB/AG COMBO RFLX [id number] 00:00:00 Test Item Value Reference Range Interpretation Comments HIV AB/AG COMBO RFLX CONF (test NON-REACTIVE code = 3514) [id number] 00:00:00 Test Item Value Reference Range Interpretation Comments RPR RESULT (test code = NON-REACTIVE 3501) RPR TITER (test code = 3500) NOT INDIC. TITER [id number] 00:00:00 Test Item Value Reference Range Interpretation [...] INTERPRETATION HEPATITIS B: (NOTE) (test code = 56643) INTERPRETATION HEPATITIS C: (NOTE) (test code = 06912) COMPREHENSIVE METABOLIC [id number] 00:00:00 Test Item Value Reference Range Interpretation Comments GLUCOSE (test code = 2217) 105 MG/DL BUN (test code = 2208) 11 MG/DL CREATININE (test code = 2214) 0.80 MG/DL eGFR AMER. (test code 109 ML/MIN/1.73 = 29657) eGFR NON- AMER. (test 94 ML/MIN/1.73 code = 34373) CALCULATED BUN/CREAT (test 14 RATIO code = 2235) SODIUM (test code = 2231) 139 MEQ/L POTASSIUM (test code = 2228) 3.8 MEQ/L CHLORIDE (test code = 2215) 102 MEQ/L CARBON DIOXIDE (test code = 22 MEQ/L 2205) CALCIUM (test code = 2209) 9.4 MG/DL [...] (test code = 2219) 14 U/L LIPID [id number] 00:00:00 Test Item Value Reference Range Interpretation Comments CHOLESTEROL (test code = 2210) 211 MG/DL TRIGLYCERIDES (test code = 2232) 209 MG/DL HDL CHOLESTEROL (test code = 2220) 38 MG/DL CALCULATED LDL CHOL (test code = 131 MG/DL 2236) RISK RATIO LDL/HDL (test code = 3.45 RATIO 2238) CBC W/AUTO [id number] 00:00:00 Test Item Value Reference Range Interpretation [...] code = 1015) 254 K/UL CBC W/AUTO [id number] 00:00:00 Test Item Value Reference Range Interpretation [...] (test code = 1015) 254 K/UL HEMOGLOBIN [id number] 00:00:00 Test Item Value Reference Range Interpretation Comments HEMOGLOBIN A1c (test code = 21875) 6.9 % HEMOGLOBIN [id number] 00:00:00 Test Item Value Reference Range Interpretation Comments HEMOGLOBIN A1c (test code = 94129) 6.9 % [id number] 00:00:00 Test Item Value Reference Range Interpretation Comments TSH (test code = 2821) 0.5 UIU/ML [id number] 00:00:00 Test Item Value Reference Range Interpretation Comments TSH (test code = 2821) 0.5 UIU/ML HEPATITIS A IgM [REFLEX]2015-06-24 00:00:00 Test Item Value Reference Range Interpretation Comments HEPATITIS A IgM (test code = NON-REACTIVE 111) COMPREHENSIVE METABOLIC [id number] 00:00:00 Test Item Value Reference Range Interpretation Comments GLUCOSE (test code = 2217) 113 MG/DL BUN (test code = 2208) 22 MG/DL CREATININE (test code = 2214) 0.9 MG/DL eGFR AMER. (test code 85 ML/MIN/1.73 = 90067) eGFR NON- AMER. (test 70 ML/MIN/1.73 code = 55413) CALCULATED BUN/CREAT (test 24 RATIO code = 2235) SODIUM (test code = 2231) 138 MEQ/L POTASSIUM (test code = 2228) 4.6 MEQ/L CHLORIDE (test code = 2215) 102 MEQ/L CARBON DIOXIDE (test code = 22 MEQ/L 2206) CALCIUM (test code = 2209) 10.6 MG/DL [...] (ALT) (test code = 2219) 24 U/L COMPREHENSIVE METABOLIC [id number] 00:00:00 Test Item Value Reference Range Interpretation Comments GLUCOSE (test code = 2217) 113 MG/DL BUN (test code = 2208) 22 MG/DL CREATININE (test code = 2214) 0.9 MG/DL eGFR AMER. (test code 85 ML/MIN/1.73 = 66019) eGFR NON- AMER. (test 70 ML/MIN/1.73 code = 51851) CALCULATED BUN/CREAT (test 24 RATIO code = [...] code = 2219) 24 U/L CBC W/AUTO [id number] 00:00:00 Test Item Value Reference Range Interpretation [...] code = 1015) 270 K/UL CBC W/AUTO [id number] 00:00:00 Test Item Value Reference Range Interpretation [...] code = 1015) 270 K/UL CBC W/AUTO [id number] 00:00:00 Test Item Value Reference Range Interpretation [...] (test code = 1015) 270 K/UL HEMOGLOBIN [id number] 00:00:00 Test Item Value Reference Range Interpretation Comments HEMOGLOBIN A1c (test code = 71687) 7.3 % HEMOGLOBIN [id number] 00:00:00 Test Item Value Reference Range Interpretation Comments HEMOGLOBIN A1c (test code = 99530) 7.3 % HEMOGLOBIN [id number] 00:00:00 Test Item Value Reference Range Interpretation Comments HEMOGLOBIN A1c (test code = 19915) 7.3 % COMPREHENSIVE METABOLIC [id number] 00:00:00 Test Item Value Reference Range Interpretation Comments GLUCOSE (test code = 2217) 113 MG/DL BUN (test code = 2208) 22 MG/DL CREATININE (test code = 2214) 0.9 MG/DL eGFR AMER. (test code 85 ML/MIN/1.73 = 87577) eGFR NON- AMER. (test 70 ML/MIN/1.73 code = 69913) CALCULATED BUN/CREAT (test 24 RATIO code = [...] (ALT) (test code = 2219) 24 U/L COMPREHENSIVE METABOLIC [id number] 00:00:00 Test Item Value Reference Range Interpretation Comments GLUCOSE (test code = 2217) 113 MG/DL BUN (test code = 2208) 22 MG/DL CREATININE (test code = 2214) 0.9 MG/DL eGFR AMER. (test code 85 ML/MIN/1.73 = 60554) eGFR NON- AMER. (test 70 ML/MIN/1.73 code = 89331) CALCULATED BUN/CREAT (test 24 RATIO code = [...] code = 2219) 24 U/L CBC W/AUTO [id number] 00:00:00 Test Item Value Reference Range Interpretation [...] code = 1015) 270 K/UL CBC W/AUTO [id number] 00:00:00 Test Item Value Reference Range Interpretation [...] code = 1015) 270 K/UL CBC W/AUTO [id number] 00:00:00 Test Item Value Reference Range Interpretation [...] (test code = 1015) 270 K/UL HEMOGLOBIN [id number] 00:00:00 Test Item Value Reference Range Interpretation Comments HEMOGLOBIN A1c (test code = 80451) 7.3 % HEMOGLOBIN [id number] 00:00:00 Test Item Value Reference Range Interpretation Comments HEMOGLOBIN A1c (test code = 43965) 7.3 % HEMOGLOBIN [id number] 00:00:00 Test Item Value Reference Range Interpretation Comments HEMOGLOBIN A1c (test code = 94159) 7.3 % COMPREHENSIVE METABOLIC [id number] 00:00:00 Test Item Value Reference Range Interpretation Comments GLUCOSE (test code = 2217) 113 MG/DL BUN (test code = 2208) 22 MG/DL CREATININE (test code = 2214) 0.9 MG/DL eGFR AMER. (test code 85 ML/MIN/1.73 = 66480) eGFR NON- AMER. (test 70 ML/MIN/1.73 code = 78485) CALCULATED BUN/CREAT (test 24 RATIO code = 2235) SODIUM (test code = 2231) 138 MEQ/L POTASSIUM (test code = 2228) 4.6 MEQ/L CHLORIDE (test code = 2215) 102 MEQ/L CARBON DIOXIDE (test code = 22 MEQ/L 2206) CALCIUM (test code = 2209) 10.6 MG/DL [...] (ALT) (test code = 2219) 24 U/L COMPREHENSIVE METABOLIC [id number] 00:00:00 Test Item Value Reference Range Interpretation Comments GLUCOSE (test code = 2217) 113 MG/DL BUN (test code = 2208) 22 MG/DL CREATININE (test code = 2214) 0.9 MG/DL eGFR AMER. (test code 85 ML/MIN/1.73 = 33887) eGFR NON- AMER. (test 70 ML/MIN/1.73 code = 84338) CALCULATED BUN/CREAT (test 24 RATIO code = [...] code = 2219) 24 U/L CBC W/AUTO [id number] 00:00:00 Test Item Value Reference Range Interpretation [...] code = 1015) 270 K/UL CBC W/AUTO [id number] 00:00:00 Test Item Value Reference Range Interpretation [...] code = 1015) 270 K/UL CBC W/AUTO [id number] 00:00:00 Test Item Value Reference Range Interpretation [...] (test code = 1015) 270 K/UL HEMOGLOBIN [id number] 00:00:00 Test Item Value Reference Range Interpretation Comments HEMOGLOBIN A1c (test code = 77038) 7.3 % HEMOGLOBIN [id number] 00:00:00 Test Item Value Reference Range Interpretation Comments HEMOGLOBIN A1c (test code = 90919) 7.3 % HEMOGLOBIN [id number] 00:00:00 Test Item Value Reference Range Interpretation Comments HEMOGLOBIN A1c (test code = 94098) 7.3 % COMPREHENSIVE METABOLIC [id number] 00:00:00 Test Item Value Reference Range Interpretation Comments GLUCOSE (test code = 2217) 113 MG/DL BUN (test code = 2208) 22 MG/DL CREATININE (test code = 2214) 0.9 MG/DL eGFR AMER. (test code 85 ML/MIN/1.73 = 93910) eGFR NON- AMER. (test 70 ML/MIN/1.73 code = 71923) CALCULATED BUN/CREAT (test 24 RATIO code = [...] code = 2219) 24 U/L CBC W/AUTO [id number] 00:00:00 Test Item Value Reference Range Interpretation [...] code = 1015) 270 K/UL CBC W/AUTO [id number] 00:00:00 Test Item Value Reference Range Interpretation [...] (test code = 1015) 270 K/UL HEMOGLOBIN [id number] 00:00:00 Test Item Value Reference Range Interpretation Comments HEMOGLOBIN A1c (test code = 52493) 7.3 % HEMOGLOBIN [id number] 00:00:00 Test Item Value Reference Range Interpretation Comments HEMOGLOBIN A1c (test code = 74473) 7.3 %"
[2022-04-10 16:20] LABS: Absolute Lymphocytes (CBC) 3.4 K/uL (0.7-4.9); Hematocrit 38.4 % (36.0-45.0); Lymphocytes % 38.7 % (15.3-44.8); MCV 83.9 fL (80-100); MPV 7.6 fL (7.6-11.3); RBC Red Blood Cell Count 4.58 M/uL (3.86-4.86)
[2022-04-10 16:40] LABS: Albumin 3.7 g/dL (3.4-5.0); Bilirubin Total 0.4 mg/dL (0.2-1.0); Potassium 3.8 mmol/L (3.5-5.1); Protein, Total 7.8 g/dL (6.4-8.2)
[2022-04-10] MEDS ORDERED: FENTANYL CITR 100 MCG/2 ML ONE (17:00)
[2022-04-10] MEDS ORDERED: PROMETHAZINE INJ 25 MG/ML AMP ONE (18:11)
--- NOTE | 2022-04-10 18:46 | RAD REPORT ---
EXAM DESCRIPTION: CT - Abdomen Pelvis W Contrast - 04/10/2022 6:23 pm CLINICAL HISTORY: abd/back pain COMPARISON: <Comparisons>CT study 12/07/2021 TECHNIQUE: Biphasic, helical CT imaging of the abdomen and pelvis was performed following 100 ml non -ionic IV contrast. No oral contrast administered. All CT scans are performed using dose optimization technique as appropriate and may include automated exposure control or mA/KV adjustment according to patient size. FINDINGS: No suspicious findings in the lung bases. The liver, spleen, and pancreas show no suspicious findings. Liver shows diffuse fatty infiltration. Cholecystectomy clips are present with no biliary tree dilatation. Symmetric renal function is seen with no hydronephrosis or suspicious renal mass. No pyelonephritis o r acute parenchymal process. No bladder wall thickening or edema. No bladder calculi. No adrenal abno rmalities. Uterus and ovaries show no suspicious findings. No dilated bowel loops or bowel wall thickening. No free air, free fluid or inflammatory stranding. No hernia, mass or bulky lymphadenopathy. No suspicious bony findings. IMPRESSION: Contrast enhanced CT abdomen and pelvis showing no significant or suspicious finding. Nonacute findings are detailed in the body of the report. Findings are similar to the December 07 examinat ion.
[2022-04-10 21:21] LABS: LDL, Direct 75 mg/dL (100-129)
--- NOTE | 2022-04-10 21:25 | EDPHYS ---
Physician Documentation [facility] Name: Valentina Franco Age: 42 yrs Sex: Female : 1980 Arrival Date: 04/10/2022 Time: 15:11 Bed 18 Private MD: PHYLICIA Physician Omayra Tavares HPI: 04/10 15:39 This 42 yrs old Female presents to ER via Ambulatory with complaints of Pain snw With Urination, Flank Pain. 15:39 The patient presents with urinary symptoms, x three weeks, pt saw PCP yesterday and was snw given abx for UTI. Onset: The symptoms/episode began/occurred gradually, 3 week(s) ago, and became persistent. Associated signs and symptoms: Pertinent positives: fever and flank pain x 2 days. Severity of symptoms: At their worst the symptoms were mild. The patient has experienced similar episodes in the past. as noted. 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 bm7 Historical: - Allergies: 15:16 No Known Allergies; bm7 - Home Meds: 15:16 Victoza 2-Christofer 0.6 mg/0.1 mL (18 mg/3 mL) subcutaneous pnij [Active]; Tresiba FlexTouch bm7 U-100 100 unit/mL (3 mL) subcutaneous inpn [Active]; Januvia Oral [Active]; glipizide 10 mg Oral tab 1 tab 2 times per day [Active]; metformin 1,000 mg Oral cp24 1 tab twice a day for Type 2 Diabetes Mellitus [Active]; lisinopril 10 mg Oral tab 1 tab once daily [Active]; fenofibrate micronized 134 mg Oral cap once daily [Active]; atorvastatin 80 mg Oral tab 1 tab once daily [Active]; - PMHx: 15:16 Anxiety; Depression; Diabetes - NIDDM; High Cholesterol; Pancreatitis; UTI; bm7 - PSHx: 15:16 section; Cholecystectomy; foot surgery; bm7 - Immunization history:: Adult Immunizations up to date, Client reports receiving the 2nd dose of the Covid vaccine, Client reports receiving the 1st dose of the Covid vaccine. - Social history:: Smoking status: Patient denies any tobacco usage or history of. ROS: 15:24 Constitutional: Negative for chills and weight loss, + fever Eyes: Negative for injury, snw pain, redness, and discharge, ENT: Negative for injury, pain, and discharge, Neck: Negative for injury, pain, and swelling, Cardiovascular: Negative for chest pain, palpitations, and edema, Respiratory: Negative for shortness of breath, cough, wheezing, and pleuritic chest pain, Abdomen/GI: Negative for abdominal pain, nausea, vomiting, diarrhea, and constipation, : Negative for injury, bleeding, discharge, and swelling, MS/Extremity: Negative for injury and deformity, Skin: Negative for injury, rash, and discoloration, Neuro: Negative for headache, weakness, numbness, tingling, and seizure, Psych: Negative for depression, anxiety, suicide ideation, homicidal ideation, and hallucinations. 15:24 Back: Positive for flank pain, bilaterally. Exam: 15:20 Constitutional: This is a well developed, well nourished patient who is awake, alert, snw and in no acute distress. Head/Face: Normocephalic, atraumatic. Eyes: Pupils equal round and reactive to light, extra-ocular motions intact. Lids and lashes normal. Conjunctiva and sclera are non-icteric and not injected. Cornea within normal limits. Periorbital areas with no swelling, redness, or edema. ENT: Nares patent. No nasal discharge, no septal abnormalities noted. Tympanic membranes are normal and external auditory canals are clear. Oropharynx with no redness, swelling, or masses, exudates, or evidence of obstruction, uvula midline. Mucous membranes moist. Neck: Trachea midline, no thyromegaly or masses palpated, and no cervical lymphadenopathy. Supple, full range of motion without nuchal rigidity, or vertebral point tenderness. No Meningismus. Chest/axilla: Normal chest wall appearance and motion. Nontender with no deformity. No lesions are appreciated. 15:20 Respiratory: Lungs have equal breath sounds bilaterally, clear to auscultation and percussion. No rales, rhonchi or wheezes noted. No increased work of breathing, no retractions or nasal flaring. Abdomen/GI: Soft, non-tender, with normal bowel sounds. No distension or tympany. No guarding or rebound. No evidence of tenderness throughout. Skin: Warm, dry with normal turgor. Normal color with no rashes, no lesions, and no evidence of cellulitis. MS/ Extremity: Pulses equal, no cyanosis. Neurovascular intact. Full, normal range of motion. Neuro: Awake and alert, GCS 15, oriented to person, place, time, and situation. Cranial nerves II-XII grossly intact. Motor strength 5/5 in all extremities. Sensory grossly intact. Cerebellar exam normal. Normal gait. Psych: Awake, alert, with orientation to person, place and time. Behavior, mood, and affect are within normal limits. 15:20 Cardiovascular: Rate: tachycardic, actual rate is 114 bpm, Rhythm: regular, Pulses: no pulse deficits are appreciated. 15:20 Back: CVA tenderness, that is moderate, is noted bilaterally. Vital Signs: 15:13 BP 147 / 86; Pulse 114; Resp 16; Temp 98.4(O); Pulse Ox 98% on R/A; Weight 101.15 kg bm7 (R); Height 5 ft. 4 in. (162.56 cm); Pain 10/10; 17:55 BP 91 / 61; Pulse 100; Resp 16; Pulse Ox 99% ; bp 19:30 BP 112 / 62; Pulse 98; Resp 18; Pulse Ox 97% on R/A; jb4 20:00 BP 107 / 65; Pulse 89; Resp 16; Pulse Ox 97% on R/A; jb4 21:00 BP 113 / 82; Pulse 95; Resp 16; Pulse Ox 99% on R/A; jb4 15:13 Body Mass Index 38.28 (101.15 kg, 162.56 cm) bm7 MDM: 15:51 Patient medically screened. snw 17:04 Data reviewed: vital signs, nurses notes. Data interpreted: Pulse oximetry: on room air snw is 98 %. Interpretation: normal. Counseling: I had a detailed discussion with the patient and/or guardian regarding: the historical points, exam findings, and any diagnostic results supporting the discharge/admit diagnosis, the presence of at least one elevated blood pressure reading (>120/80) during this emergency department visit, lab results, the need for outpatient follow up, for definitive care, 04/10 15:13 Order name: UA MICROSCOPIC snw 04/10 15:13 Order name: Urine Culture snw 04/10 15:19 Order name: Blood Culture Adult (2) snw 04/10 15:26 Order name: Urine Dipstick-Ancillary; Complete Time: 15:51 EDMS 04/10 15:27 Order name: Urine --Ancillary (enter results) eb 04/10 15:29 Order name: Glucose, Ancillary Testing; Complete Time: 15:51 EDMS 04/10 15:30 Order name: Urine --Ancillary; Complete Time: 15:51 EDMS 04/10 15:37 Order name: Urine Microscopic Only; Complete Time: 15:51 EDMS 04/10 15:50 Order name: CBC with Diff bp 04/10 15:50 Order name: CMP bp 04/10 15:50 Order name: Lipase bp 04/10 16:20 Order name: CBC with Automated Diff; Complete Time: 16:23 EDMS 04/10 16:40 Order name: Comprehensive Metabolic Panel; Complete Time: 16:42 EDMS 04/10 16:40 Order name: Lipase; Complete Time: 16:42 EDMS 04/10 15:26 Order name: Urine Dipstick-Ancillary (obtain specimen); Complete Time: 15:26 ld1 04/10 17:57 Order name: CT Abd/Pelvis - IV Contrast Only snw 04/10 18:47 Order name: CT; Complete Time: 18:56 EDMS 04/10 20:45 Order name: Add On-Lab snw 04/10 20:45 Order name: FSBS; Complete Time: 20:53 snw 04/10 21:01 Order name: Glucose, Ancillary Testing; Complete Time: 21:07 EDMS 04/10 21:10 Order name: Triglycerides Level; Complete Time: 21:23 EDMS 04/10 21:21 Order name: LDL, Direct; Complete Time: 21:23 EDMS Administered Medications: 15:55 Drug: NS 0.9% 1000 ml Route: IV; Rate: 1 bolus; Site: right forearm; bp 17:00 Drug: fentaNYL (PF) 25 mcg Route: IVP; Site: right forearm; bp 18:18 Drug: Phenergan (promethazine) 12.5 mg Route: IVP; Site: right forearm; bp 19:45 Drug: NS 0.9% 1000 ml Route: IV; Rate: 1 bolus; Site: right forearm; jb4 20:53 Follow up: IV Status: Completed infusion; IV Intake: 1000ml jb4 21:11 Not Given (Other Intervention Used): DiFLUcan (fluconazole) 400 mg 100 ml IVPB once jb4 over 60 mins 21:29 Not Given (Physician Discretion): DiFLUcan (fluconazole) 200 mg PO once jb4 21:29 Not Given (Physician Discretion): DiFLUcan (fluconazole) 200 mg 100 ml IVPB once over jb4 60 mins 21:50 Drug: DiFLUcan (fluconazole) 400 mg Route: PO; jb4 21:50 Follow up: Response: Medication administered at discharge. jb4 Point of Care Testing: Blood Glucose: 15:19 Blood Glucose: 282 mg/dL; bm7 Ranges: Critical Glucose Levels:Adult <50 mg/dl or >400 mg/dl <40 mg/dl or >180 mg/dl Disposition Summary: 04/10/22 21:25 Discharge Ordered Location: Home snw Condition: Stable snw Diagnosis - Dysuria snw - Type 2 diabetes mellitus with hyperglycemia snw Followup: snw - With: Emergency Department - When: As needed - Reason: Worsening of condition Followup: snw - With: Private Physician - When: 2 - 3 days - Reason: Recheck today's complaints, Continuance of care, Re-evaluation by your physician Discharge Instructions: - Discharge Summary Sheet snw - Type 2 Diabetes Mellitus, Diagnosis, Adult snw - Diabetes Mellitus and Sick Day Management snw - Dysuria snw - Hyperglycemia snw - Form - Daily Diabetes Record snw - Insulin Resistance snw Forms: - Medication Reconciliation Form snw - Thank You Letter snw - Antibiotic Education snw - Prescription Opioid Use snw Prescriptions: - Diflucan 100 mg Oral Tablet - take 2 tablets by ORAL route Day 1 for 1 day - then take one tablet by oral snw route every day for 14 days.; 16 tablet; Refills: 0, Product Selection Permitted - promethazine 25 mg Oral Tablet - take 1 tablet by ORAL route every 6 hours As needed; 18 tablet; Refills: 0, snw Product Selection Permitted Signatures: Dispatcher [employer] EDNona Hamm FNP-C BASS GUITAR TEACHER-Csnw Anil Slater RN RN jb4 Franky Smith RN RN bp Ml Hendrickson, RN RN bm7 Janell Ricardo RN RN ld1 Corrections: (The following items were deleted from the chart) 15:39 15:24 Constitutional: Negative for fever, chills, and weight loss, Eyes: Negative for snw injury, pain, redness, and discharge, ENT: Negative for injury, pain, and discharge, Neck: Negative for injury, pain, and swelling, Cardiovascular: Negative for chest pain, palpitations, and edema, Respiratory: Negative for shortness of breath, cough, wheezing, and pleuritic chest pain, Abdomen/GI: Negative for abdominal pain, nausea, vomiting, diarrhea, and constipation, : Negative for injury, bleeding, discharge, and swelling, MS/Extremity: Negative for injury and deformity, Skin: Negative for injury, rash, and discoloration, Neuro: Negative for headache, weakness, numbness, tingling, and seizure, Psych: Negative for depression, anxiety, suicide ideation, homicidal ideation, and hallucinations, snw
--- NOTE | 2022-04-10 21:25 | ER ---
Nurse's Notes [facility] Name: Valentina Franco Age: 42 yrs Sex: Female : 1980 Arrival Date: 04/10/2022 Time: 15:11 Bed 18 Private MD: Diagnosis: Dysuria;Type 2 diabetes mellitus with hyperglycemia Presentation: 04/10 15:13 Chief complaint: Patient states: I have been having symptoms of a UTI for the past bm7 three weeks and yesterday I saw my doctor and they said I should come here to bee seen. Coronavirus screen: At this time, the client does not indicate any symptoms associated with coronavirus-19. Ebola Screen: No symptoms or risks identified at this time. Initial Sepsis Screen: Does the patient meet any 2 criteria? No. Patient's initial sepsis screen is negative. Does the patient have a suspected source of infection? No. Patient's initial sepsis screen is negative. Risk Assessment: Do you want to hurt yourself or someone else? Patient reports no desire to harm self or others. Onset of symptoms is unknown. 15:13 Method Of Arrival: Ambulatory 7 15:13 Acuity: CYNTHIA 3 bm7 Triage Assessment: 15:16 General: Appears in no apparent distress. uncomfortable, Behavior is calm, cooperative, bm7 appropriate for age. Pain: Complains of pain in pelvis. EENT: No deficits noted. No signs and/or symptoms were reported regarding the EENT system. Neuro: No deficits noted. Cardiovascular: No deficits noted. Respiratory: No deficits noted. GI: No deficits noted. No signs and/or symptoms were reported involving the gastrointestinal system. : Reports burning with urination, cramping, inability to void, pain urinary frequency. Derm: No deficits noted. No signs and/or symptoms reported regarding the dermatologic system. Musculoskeletal: No deficits noted. No signs and/or symptoms reported regarding the musculoskeletal system. 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 7 Historical: - Allergies: 15:16 No Known Allergies; bm7 - Home Meds: 15:16 Victoza 2-Christofer 0.6 mg/0.1 mL (18 mg/3 mL) subcutaneous pnij [Active]; Tresiba FlexTouch bm7 U-100 100 unit/mL (3 mL) subcutaneous inpn [Active]; Januvia Oral [Active]; glipizide 10 mg Oral tab 1 tab 2 times per day [Active]; metformin 1,000 mg Oral cp24 1 tab twice a day for Type 2 Diabetes Mellitus [Active]; lisinopril 10 mg Oral tab 1 tab once daily [Active]; fenofibrate micronized 134 mg Oral cap once daily [Active]; atorvastatin 80 mg Oral tab 1 tab once daily [Active]; - PMHx: 15:16 Anxiety; Depression; Diabetes - NIDDM; High Cholesterol; Pancreatitis; UTI; bm7 - PSHx: 15:16 section; Cholecystectomy; foot surgery; bm7 - Immunization history:: Adult Immunizations up to date, Client reports receiving the 2nd dose of the Covid vaccine, Client reports receiving the 1st dose of the Covid vaccine. - Social history:: Smoking status: Patient denies any tobacco usage or history of. Screenin:30 Abuse screen: Denies threats or abuse. Denies injuries from another. Nutritional bp screening: No deficits noted. Tuberculosis screening: No symptoms or risk factors identified. Fall Risk None identified. Assessment: 15:30 General: SEE TRIAGE NOTE. bp 17:55 Reassessment: No changes from previously documented assessment. Patient and/or family bp updated on plan of care and expected duration. Pain level reassessed. 19:15 Reassessment: Patient appears in no apparent distress at this time. Patient and/or jb4 family updated on plan of care and expected duration. Pain level reassessed. Patient is alert, oriented x 3, equal unlabored respirations, skin warm/dry/pink. 20:41 Reassessment: Patient appears in no apparent distress at this time. Patient and/or jb4 family updated on plan of care and expected duration. Pain level reassessed. Patient is alert, oriented x 3, equal unlabored respirations, skin warm/dry/pink. 21:50 Reassessment: Patient appears in no apparent distress at this time. Patient and/or jb4 family updated on plan of care and expected duration. Pain level reassessed. Patient is alert, oriented x 3, equal unlabored respirations, skin warm/dry/pink. Vital Signs: 15:13 BP 147 / 86; Pulse 114; Resp 16; Temp 98.4(O); Pulse Ox 98% on R/A; Weight 101.15 kg bm7 (R); Height 5 ft. 4 in. (162.56 cm); Pain 10/10; 17:55 BP 91 / 61; Pulse 100; Resp 16; Pulse Ox 99% ; bp 19:30 BP 112 / 62; Pulse 98; Resp 18; Pulse Ox 97% on R/A; jb4 20:00 BP 107 / 65; Pulse 89; Resp 16; Pulse Ox 97% on R/A; jb4 21:00 BP 113 / 82; Pulse 95; Resp 16; Pulse Ox 99% on R/A; jb4 15:13 Body Mass Index 38.28 (101.15 kg, 162.56 cm) bm7 ED Course: 15:11 Patient arrived in ED. am2 15:12 Nona Ashby FNP-C is PHCP. snw 15:12 Omayra Tavares MD is Attending Physician. snw 15:16 Triage completed. bm7 15:16 Arm band placed on right wrist. bm7 15:20 Assisted to bathroom. bm7 15:21 Franky Smith, RN is Primary Nurse. bp 15:26 Urine Culture Sent. ld1 15:26 UA MICROSCOPIC Sent. ld1 15:30 Patient has correct armband on for positive identification. Bed in low position. Call bp light in reach. Side rails up X2. 15:33 Urine --Ancillary (enter results) Sent. bp 15:55 Inserted saline lock: 20 gauge in right forearm, using aseptic technique. Blood bp collected. 20:05 Primary Nurse role handed off by Franky Smith, RN wm 20:54 Add On-Lab Sent. jb4 21:52 No provider procedures requiring assistance completed. IV discontinued, intact, jb4 bleeding controlled, No redness/swelling at site. Pressure dressing applied. Administered Medications: 15:55 Drug: NS 0.9% 1000 ml Route: IV; Rate: 1 bolus; Site: right forearm; bp 17:00 Drug: fentaNYL (PF) 25 mcg Route: IVP; Site: right forearm; bp 18:18 Drug: Phenergan (promethazine) 12.5 mg Route: IVP; Site: right forearm; bp 19:45 Drug: NS 0.9% 1000 ml Route: IV; Rate: 1 bolus; Site: right forearm; jb4 20:53 Follow up: IV Status: Completed infusion; IV Intake: 1000ml jb4 21:11 Not Given (Other Intervention Used): DiFLUcan (fluconazole) 400 mg 100 ml IVPB once jb4 over 60 mins 21:29 Not Given (Physician Discretion): DiFLUcan (fluconazole) 200 mg PO once jb4 21:29 Not Given (Physician Discretion): DiFLUcan (fluconazole) 200 mg 100 ml IVPB once over jb4 60 mins 21:50 Drug: DiFLUcan (fluconazole) 400 mg Route: PO; jb4 21:50 Follow up: Response: Medication administered at discharge. jb4 Medication: 21:00 VIS not applicable for this client. jb4 Point of Care Testing: Blood Glucose: 15:19 Blood Glucose: 282 mg/dL; bm7 Ranges: Intake: 20:53 IV: 1000ml; Total: 1000ml. jb4 Outcome: 21:25 Discharge ordered by . snw 21:52 Discharged to home ambulatory. jb4 21:52 Condition: stable 21:52 Discharge instructions given to patient, Instructed on discharge instructions, follow up and referral plans. medication usage, Demonstrated understanding of instructions, follow-up care, medications, Prescriptions given X 2. 21:52 Patient left the ED. jb4 Signatures: Nona Ashby, [employer] H[employer]ORY TEACHER-C [employer] HISTORY TEACHER-Csnw Anil Slater RN RN jb4 Ashley Diaz Brian, RN RN bp Ml Hendrickson, PEET RN bm7 Janell Ricardo RN RN ld1 Julissa Clements Corrections: (The following items were deleted from the chart) 20:43 20:30 BP 163 / 77; Pulse 55bpm; Resp 16bpm; Pulse Ox 96% RA; jb4 jb4
[2022-04-10] MEDS ORDERED: FLUCONAZOLE 100 MG TAB ONE (21:32)
[2022-04-10 22:34] VITALS: TEMP 98.4
[2022-04-10 22:50] VITALS: BP 113/82; O2SAT 99
== END 2022-04-10 21:52 | disposition home or self-care (01) ==
LOC: ER 15:08
DX: R30.0 Dysuria (principal); E11.65 Type 2 diabetes mellitus with hyperglycemia; F41.8 Other specified anxiety disorders
CPT/HCPCS: 96361; 87040 ×2; 87088; 85025; 87086; 36415; 83721; 84478; 81025; 82947 ×2; 83690; 80053; 74177; 96375; 96374; 99284; Q9967; J2550; J3010; J7030 ×2; 81003; 81015

== ENCOUNTER 2022-07-31 13:53 | Emergency (ER) | payer OTHER ==
[2022-07-31] MEDS ORDERED: Ringers Lactate 2,000 ML IV ONE (14:56)
[2022-07-31] MEDS ORDERED: MORPHINE 4 MG/ML SYR ONE (14:56)
[2022-07-31] MEDS ORDERED: ONDANSETRON 4 MG/2 ML VIAL ONE (14:56)
--- OUTSIDE RECORDS SUMMARY | 2022-07-31 15:00 | XMS REPORT | Continuity of Care Document ---
:1980 Author Organization [facility] t Address [address] [place] [address] Care Team Providers Name Role Phone [phone] Primary Care Physician Unavailable Bebeto Quiroga Attending Clinician Unavailable Elbert Wilson Attending Clinician Unavailable KATELYN BUCKNER Attending Clinician Unavailable Katelyn Kennedy Attending Clinician Ernst MEI, Silvina Elise Attending Clinician BEATRIZ EDUARDO Attending Clinician Unavailable Alesha ANDERSON, Beatriz Cross Attending Clinician JN GALLAGHER Attending Clinician Unavailable Jn Gallagher DO Attending Clinician José Miguel CARDOZO, Jade Attending Clinician FOZIA JANG Attending Clinician Unavailable Fozia Jang MD Attending Clinician MARY ESPINOSA Attending Clinician Unavailable Mary Lopez S Attending Clinician Doron Thompson MD Attending Clinician DORON THOMPSON Attending Clinician Unavailable FABIO AVALOS Attending Clinician Unavailable BRYSON GONZALEZ Attending Clinician Unavailable Lily Deleon PA-C Attending Clinician LESLEE SMITH Attending Clinician Unavailable LILY DELEON Attending Clinician Unavailable Doctor Unassigned, [place] Attending Clinician Unavailable STANISLAW SUN Attending Clinician Unavailable ABHIJIT GALAN Attending Clinician Unavailable Kit Lopez Attending Clinician Unavailable KNOW, DOES_NOT Admitting Clinician Unavailable Elbert Wilson Admitting Clinician Unavailable Physician, No Primary or Family Admitting Clinician UnavailKATELYN Oh Admitting Clinician Unavailable BEATRIZ EDUARDO Admitting Clinician Unavailable JN GALLAGHER Admitting Clinician Unavailable Bebeto Quiroga Admitting Clinician Unavailable FOZIA JANG Admitting Clinician Unavailable MARY ESPINOSA Admitting Clinician Unavailable MERI BARONE Admitting Clinician Unavailable Kit Lopez Admitting Clinician Unavailable Payers Payer Name Policy Type Policy Number Effective Date Expiration Date Nakul QUINONEZ GENERIC [id number] 2019 00:00:00 COMMERCIAL [id number] 2021 NON-CONTRACT 00:00:00 GENERIC Problems Condition Condition Condition Status Onset Resolution Last Treating Co mments Source Name Details Category Date Date Treatment Clinician Date Essential Essential Disease Active Uni vers hypertensi hypertensi 5-26 it y of on on 00:00: [address] POTS POTS Disease Active Univers (postural (postural -26 ity of orthost[place]ost[place] 00 Medical tachycardi tachycardi Br anch a a syndrome) syndrome) Dyslipidem Dyslipidem Disease Active U nivers ia ia 5-26 ity of 00:00: Medical Branch Atypical Atypical Disease Active Unive rs chest pain chest pain 5-25 it y of 00:00: [facility] Pancreatit Pancreatit Disease Active U nivers is, is, 4-24 [place] Vulvar Vulvar Disease Active Methodi pain pain 5-14 st 00:00: Hospita 00 l Pyelonephr Pyelonephr Disease Active M ethodi itis itis 01-16 st 00:00: Hospita 00 l Pelvic Pelvic Disease Active Methodi pain in pain in -07 st female female 00:00: Hospita 00 l [...] surgical 1-30 ity of incision incision 00:00: [facility] Branch Mood Mood Disease Active Univers swings swings 1-30 ity of 00:00: [facility] Gestationa Gestationa Disease Active 2012-07 U nivers l l 2-21 ity of hypertensi hypertensi [place] [facility] [place] Gestationa Gestationa Disease Active 2012-07 U nivers l l 2-21 ity of hypertensi hypertens[place] Ventral Ventral Disease Active 2012-07 Univers hernia hernia 2-21 ity of 00:00: Medical Branch 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 [...] Overview : Univers to rubella to rubella 12-14 Formattin ity of 00:00: g of this [place] 00 note Medical might be Branch different from the original. Immunize postpartu mICD10 Diagnosis Term [employer] Immune to Immune to Disease Active Uni vers varicella varicella 6 ity of 00:00: [place] 00 Medical Branch Morbid Morbid Disease Active [facility] obesity obesity 3-02 ity of 00:00: [place] 00 Medical Branch Type 2 Type 2 Disease Active Overview: Univer s diabetes diabetes 506 Formattin ity of mellitus mellitus 00:00: g [...] 00 dic Hospita l alcohol FA Active [place] [facility]ES [facility] [place] 07-30 [place] 00:00: Orthope 00 dic Hospita l tequ[place] DA Active [place] hives [facility] -20 [place] 00:00: Orthope 00 dic Hospita l alcohol FA Active [place] [facility] 01-15 [place] 00:00: Orthope 00 dic Hospita l alcohol FA Active [place] [facility]ES TO [facility] [place] 01-15 [place] 00:00: Orthope 00 dic Hospita l tequila DA Active [place] hives [facility] 01-09 Clear 00:00: [facility]onseca 00 [facility] Cefpodox Propensi Active Other (See Eye and M ethodi dewayne ty to Comments) 8-[address] adverse 00:00: Swelling Hospita reaction 00 30 mins l s to after drug taking medicatio n alcohol FA Active [place] 2015-07 [facility] 09-06 [place] 00:00: Orthope 00 dic Hospita l alcohol FA Active [place] TURNS RED 2015-07 [facility] 09-06 [place] 00:00: Orthope 00 dic Hospita l NO KNOWN Drug Active Univers ALLERGIE Class ity of [facility] Family History Family Member Diagnosis Comments Start Date Stop Date Source Natural brother Diabetes [facility] Natural father [facility] Natural mother Diabetes [facility] Natural sister Diabetes [facility] Social History Social Habit Start Date Stop Date Quantity Comments Source Exposure to 2022-06-11 2022-06-21 Not sure [facility]-CoV-2 00:00:00 17:24:00 [facility] (event) [place] Alcohol intake 2019-11-22 2019-11-22 Current drinker [facility]o dist 00:00:00 00:00:00 of alcohol Hospital (finding) History [facility] 2019-11-22 2019-11-22 2 [employer] Alcohol Frequency 00:00:00 00:00:00 Hospita l History [facility] 2019-11-22 2019-11-22 1 [employer] Alcohol Std 00:00:00 00:00:00 Hospital Drinks History [facility] 2019-11-22 2019-11-22 1 [employer] Alcohol Binge 00:00:00 00:00:00 Hospital Alcohol Comment 2016-09-09 2016-09-09 Megan occa. Meth odist 00:00:00 00:00:00 Hospital Tobacco use and 2012-12-13 2012-12-13 Smokeless tobacco Un iversity of exposure 00:00:00 00:00:00 non-user [facility] Sex Assigned At [birth year] [employer] 00:00:00 00:00:00 Hospital Smoking Status Start Date Stop Date Source Never smoked tobacco [facility] [facility] Medications Ordered Filled Start Stop Current Ordering Indication Dosage Frequency Signature Comments Components Source Medication Medication Date Date Medication? Clinician (SIG) Name Name TAKE 1 2021-07 No TABLET 2-14 DAILY. 00:00: 00 TAKE 1 2021- No TABLET 2-14 TWICE 00:00: DAILY. 00 TAKE 1 2021- No TABLET 2-14 TWICE DAILY 00:00: UNTIL 00 FINISHED. INJECT 72 2021- No UNITS TWICE 2-14 A DAY 00:00: 00 TAKE 1 2021- No TABLET 2-14 DAILY. 00:00: 00 TAKE 2021-07 No DIRECTED. 2-14 00:00: 00 Dose 2021- No Unknown 2-14 00:00: 00 USE 3-4 2021- No TIMES 2-14 WEEKLY. 00:00: LEAVE ON 00 FOR 5-10 MINUTES BEFORE RINSING. Dose 2021-07 No Unknown 2-14 00:00: 00 TAKE 2 2021- No TABLETS BY 2-14 MOUTH ON 00:00: DAY 1 AND 00 THEN TAKE 1 TABLET BY MOUTH ONCE DAILY AFTERWARDS FOR 14 DAYS INJECT 2021- No BELOW THE 2-14 SKIN 70 00:00: UNITS 2 00 TIMES A DAY TAKE 1 2021-07 No TABLET BY 2-14 MOUTH EVERY 00:00: DAY 00 1 TABLET 2021- No WITH FOOD 2-14 FOR 10 00:00: CONSECUTIVE 00 DAYS EACH MONTH ORALLY TAKE 1 2021-07 No TABLET BY 2-14 MOUTH EVERY 00:00: 4 HOURS 00 NEEDED FOR NAUSEA AND VOMITING . TAKE 1 2021-07 No TABLET BY 2-14 MOUTH EVERY 00:00: 6 HOURS 00 NEEDED FOR PAIN (SCALE 7-10). INDICATIONS : ACUTE PAIN Dose 2021- No Unknown 2-14 00:00: 00 Dose 2021- No Unknown 2-14 00:00: 00 TAKE 3 2021- No CAPSULES BY 2-14 MOUTH EVERY 00:00: DAY 00 TAKE 1 2021-07 No TABLET BY 2-14 MOUTH THREE 00:00: TIMES A DAY 00 NEEDED FOR PAIN TAKE 1 2021- No TABLET BY 2-14 MOUTH EVERY 00:00: 4 DAYS 00 Dose 2021- No Unknown 2-14 00:00: 00 TAKE 1 2021- No TABLET BY 2-14 MOUTH EVERY 00:00: 6 HOURS 00 NEEDED FOR PAIN SPIRONOLACT 2021-07 No 100 100MG 2-14 Tablets 00:00: 00 Dose 2021- No Unknown 2-14 00:00: 00 Dose 2021- No Unknown 2-14 00:00: 00 Dose 2021- No Unknown 2-14 00:00: 00 USE 2 2021- No SPRAYS IN 2-14 EACH 00:00: NOSTRIL 00 ONCE A DAY Dose 2021-07 No Unknown 2-14 00:00: 00 Dose 2021- No Unknown 2-14 00:00: 00 Dose 2021- No Unknown 2-14 00:00: 00 Dose 2021- No Unknown 2-14 00:00: 00 Dose 2021- No Unknown 2-14 00:00: 00 Dose 2021-07 No Unknown 2-14 00:00: 00 Dose 2021-07 No Unknown 2-14 00:00: 00 Dose 2021-07 No Unknown 2-14 00:00: 00 TAKE 1 2021-07 No TABLET BY 2-14 MOUTH EVERY 00:00: DAY 00 TAKE 1 2021-07 No TABLET BY 2-14 MOUTH EVERY 00:00: DAY 00 FINASTERIDE 2021-07 No 5MG Tablets 2-14 00:00: 00 Dose 2021-07 No Unknown 2-14 00:00: 00 TAKE BY 2021-07 No MOUTH 3 2-14 CAPSULES 3 00:00: TIMES A DAY 00 STOP GABENTIN 800MG TAKE 1 2021-07 No TABLET BY 2-14 MOUTH 00:00: NIGHTLY 00 TAKE 1 2021-07 No TABLET BY 2-14 MOUTH TWICE 00:00: A DAY 00 TAKE 1 2021-07 No TABLET 2-14 DAILY. 00:00: 00 TAKE 1 2021-07 No TABLET 2-14 TWICE 00:00: DAILY. 00 TAKE 1 2021-07 No TABLET 2-14 TWICE DAILY 00:00: UNTIL 00 FINISHED. INJECT 72 2021-07 No UNITS TWICE 2-14 A DAY 00:00: 00 TAKE 1 2021-07 No TABLET 2-14 DAILY. 00:00: 00 TAKE 2021- No DIRECTED. 2-14 00:00: 00 Dose 2021-07 No Unknown 2-14 00:00: 00 USE 3-4 2021- No TIMES 2-14 WEEKLY. 00:00: LEAVE ON 00 FOR 5-10 MINUTES BEFORE RINSING. Dose 2021-07 No Unknown 2-14 00:00: 00 TAKE 2 2021- No TABLETS BY 2-14 MOUTH ON 00:00: DAY 1 AND 00 THEN TAKE 1 TABLET BY MOUTH ONCE DAILY AFTERWARDS FOR 14 DAYS INJECT 2021-07 No BELOW THE 2-14 SKIN 70 00:00: UNITS 2 00 TIMES A DAY TAKE 1 2021- No TABLET BY 2-14 MOUTH EVERY 00:00: DAY 00 1 TABLET 2021-07 No WITH FOOD 2-14 FOR 10 00:00: CONSECUTIVE 00 DAYS EACH MONTH ORALLY TAKE 1 2021- No TABLET BY 2-14 MOUTH EVERY 00:00: 4 HOURS 00 NEEDED FOR NAUSEA AND VOMITING . TAKE 1 2021-07 No TABLET BY 2-14 MOUTH EVERY 00:00: 6 HOURS 00 NEEDED FOR PAIN (SCALE 7-10). INDICATIONS : ACUTE PAIN Dose 2021-07 No Unknown 2-14 00:00: 00 Dose 2021-07 No Unknown 2-14 00:00: 00 TAKE 3 2021-07 No CAPSULES BY 2-14 MOUTH EVERY 00:00: DAY 00 TAKE 1 2021-07 No TABLET BY 2-14 MOUTH THREE 00:00: TIMES A DAY 00 NEEDED FOR PAIN TAKE 1 2021-07 No TABLET BY 2-14 MOUTH EVERY 00:00: 4 DAYS 00 Dose 2021-07 No Unknown 2-14 00:00: 00 TAKE 1 2021-07 No TABLET BY 2-14 MOUTH EVERY 00:00: 6 HOURS 00 NEEDED FOR PAIN SPIRONOLACT 2021-07 No 100 100MG 2-14 Tablets 00:00: 00 Dose 2021-07 No Unknown 2-14 00:00: 00 Dose 2021-07 No Unknown 2-14 00:00: 00 Dose 2021-07 No Unknown 2-14 00:00: 00 USE 2 2021-07 No SPRAYS IN 2-14 EACH 00:00: NOSTRIL 00 ONCE A DAY Dose 2021-07 No Unknown 2-14 00:00: 00 Dose 2021-07 No Unknown 2-14 00:00: 00 Dose 2021-07 No Unknown 2-14 00:00: 00 Dose 2021-07 No Unknown 2-14 00:00: 00 Dose 2021-07 No Unknown 2-14 00:00: 00 Dose 2021-07 No Unknown 2-14 00:00: 00 Dose 2021-07 No Unknown 2-14 00:00: 00 TAKE 2021-07 No TABLET BY 2-14 MOUTH TWICE 00:00: A DAY 00 TAKE 2021-07 No TABLET BY 2-14 MOUTH EVERY 00:00: DAY 00 TAKE 2021-07 No TABLET BY 2-14 MOUTH EVERY 00:00: DAY 00 FINASTERIDE 2021-07 No 5MG Tablets 2-14 00:00: 00 Dose 2021-07 No Unknown 2-14 00:00: 00 TAKE BY 2021-07 No MOUTH 3 2-14 CAPSULES 3 00:00: TIMES A DAY 00 STOP GABENTIN 800MG TAKE 2021-07 No TABLET BY 2-14 MOUTH 00:00: NIGHTLY 00 TAKE 2021-07 No TABLET BY 2-14 MOUTH TWICE 00:00: A DAY 00 NaCl 0.9% 2021-07 1000mL at 999 Uni vers (NS) bolus 2-13 12-13 mL/hr, ity of infusion 05:00: 05:09 1,000 mL, [place] 1,000 mL 00 :00 IV Medical Infusion, Branch ONCE, 1 dose, On Tue06/21/22 at 2300, STAT insulin 2021-07 Yes 0U/kg/h 0-0.3 Univer s regular in 2-13 Units/kg/h ity of 0.9 % NaCl 02:00: r ?98.4 kg [place] (MYXREDLIN) 00 (0-29.52 Medi bonita 100 mL/hr), IV Branch unit/100 mL Infusion, (1 unit/mL) TITRATE, RTU IV Parameters infusion in Admin. Instr., Starting on Tue06/21/22 at 2000
- Follow 'DKA Insulin Rate Adjustment Protocol' - Start insulin infusion at 0.1 units/kg /hr. When adjusting rate, do not increase rate above 0.3 units/kg/h our. If rate has been at 0.3 units/kg/h r for the past two hours AND blood glucose remains above 200 mg/dL in DKA and above 300 mg/dL in HHS without a drop of at least 10% in glucose levels, MTO for considerat ion of endocrinol ogy consult&nb sp;- Hold insulin and NHO STAT if potassium is less than 3.3 mEq/L.&nbs p;- NHO STAT if blood glucose less than 100 mg/dL or greater than 600 mg/dL or if blood glucose not decreased by 50 mg/dL in the first hour of insulin infusion.& nbsp;- Once blood glucose is less than or equal to 200 mg/dL in patient with DKA or blood glucose is less than or equal to 300 mg/dL in patient with HHS, change to fluids with dextrose.& nbsp;&nbsp ;&nbsp ;- If during insulin infusion and on dextrose fluids blood glucose is less than 150 mg/dL in DKA or less than 200 mg/dL in HHS, NHO for increase in dextrose provided in continuous fluids.&nb sp;- Once AGAP less than 12, blood glucose less than 200 mg/dL, TCO2 greater than 15 x 2 and patient ready to eat, NHO for SubQ glargine order two hours before stopping insulin infusion.< br> NaCl 0.45% 2021-07 Yes 1000mL Unive rs (1/2NS) 2-13 ity of 1000 mL + 02:00: [place] KCL 20 mEq 00 Medical Branch D5W 0.45% 2021-07 Yes 1000mL at 200 Univ ers NaCl 2-13 mL/hr, ity of (1/2NS) IV 01:48: 1,000 [place], [place] infusion 28 IV Medical 1,000 mL Infusion, [place] PRN - SEE INSTRUCTIO NS, Starting on Tue06/21/22 at 1948, Until Discontinu ed, [place]AI[place] ondansetron 2021-07- No 4mg 4 mg, Slow Univers (ZOFRAN 2-13 12-13 IV Push, ity of (PF)) 01:00: 01:01 ONCE, 1 [place] injection 4 00 :00 dose, On Medi bonita mg [facility] 06/21/22 at 1900, MALAIKA NaCl 0.9% 2021-07- No 1000mL at 999 Uni vers (NS) bolus 2-13 12-13 mL/hr, ity of infusion 00:45: 01:56 1,000 mL, [place] 1,000 mL 00 :00 IV Medical Infusion, Branch ONCE, 1 dose, On Tue06/21/22 at 1845, STAT TAKE 2021-07 No TABLET 0-21 TWICE A DAY 00:00: 00 TAKE 1 2022-1 No TABLET 0-21 TWICE A DAY 00:00: 00 TAKE 1 2022-1 No TABLET 0-21 TWICE A DAY 00:00: 00 TAKE 1 2022-1 No TABLET 0-21 TWICE A DAY 00:00: 00 TAKE 1 2022-1 No TABLET 0-21 TWICE A DAY 00:00: 00 Dose 2022-0 No Unknown 7-13 00:00: 00 Bromfed DM 2022-0 No 5mg/5 2 mg-30 7-13 mL mg-10 mg/5 00:00: mL oral 00 syrup Bromfed DM 2022-0 No 5mg/5 2 mg-30 7-13 mL mg-10 mg/5 00:00: mL oral 00 syrup Bromfed DM 2022-0 No 5mg/5 2 mg-30 7-13 mL mg-10 mg/5 00:00: mL oral 00 syrup Bromfed DM 2022-0 No 5mg/5 2 mg-30 7-13 mL mg-10 mg/5 00:00: mL oral 00 syrup Bromfed DM 2022-0 No 5mg/5 2 mg-30 7-13 mL mg-10 mg/5 00:00: mL oral 00 syrup Bromfed DM 2022-0 No 5mg/5 2 mg-30 7-13 mL mg-10 mg/5 00:00: mL oral 00 syrup Bromfed DM 2022-0 No 5mg/5 2 mg-30 7-13 mL mg-10 mg/5 00:00: mL oral 00 syrup Bromfed DM 2022-0 No 5mg/5 2 mg-30 7-13 mL mg-10 mg/5 00:00: mL oral 00 syrup Bromfed DM 2022-0 No 5mg/5 2 mg-30 7-13 mL mg-10 mg/5 00:00: mL oral 00 syrup Dose 2022-0 No Unknown 7- 00:00: 00 Dose 2022-0 No Unknown 6- 00:00: 00 Dose 2022-0 No Unknown 6- 00:00: 00 Valium 10 2022-0 No 1mg mg tablet 6- 00:00: 00 Macrodantin 2022-0 No 1mg 100 mg 6-03 capsule 00:00: 00 Valium 10 2022-0 No 1mg mg tablet 6- 00:00: 00 Macrodantin 2022-0 No 1mg 100 mg 6-03 capsule 00:00: 00 Valium 10 2022-0 No 1mg mg tablet 6- 00:00: 00 Macrodantin 2022-0 No 1mg 100 mg 6-03 capsule 00:00: 00 Valium 10 2022-0 No 1mg mg tablet 6- 00:00: 00 Macrodantin 2022-0 No 1mg 100 mg 6-03 capsule 00:00: 00 Valium 10 2022-0 No 1mg mg tablet 6- 00:00: 00 Macrodantin 2022-0 No 1mg 100 mg 6-03 capsule 00:00: 00 Valium 10 2022-0 No 1mg mg tablet 12-11 00:00: 00 Macrodantin 2022-0 No 1mg 100 mg 6-03 capsule 00:00: 00 Valium 10 2022-0 No 1mg mg tablet 12-11 00:00: 00 Macrodantin 2022-0 No 1mg 100 mg 6-03 capsule 00:00: 00 Valium 10 2022-0 No 1mg mg tablet 12-11 00:00: 00 Macrodantin 2022-0 No 1mg 100 mg 6-03 capsule 00:00: 00 Valium 10 2022-0 No 1mg mg tablet 12-11 00:00: 00 Macrodantin 2022-0 No 1mg 100 mg 6-03 capsule 00:00: 00 Dose 2022-0 No Unknown 6-03 00:00: 00 Dose 2022-0 No Unknown 6-03 00:00: 00 Dose 2022-0 No Unknown 5-18 00:00: 00 atorvastati 2022-0 No 1mg n [...] n 80 mg 5-18 tablet 00:00: 00 Dose 2022-0 No Unknown 5-18 00:00: 00 Dose 2022-0 No Unknown 5-14 00:00: 00 Dose 2-0 No Unknown 5-14 00:00: 00 TAKE 1 2-0 No TABLET 5-14 DAILY. 00:00: 00 TAKE 1 2-0 No TABLET 5-14 TWICE 00:00: DAILY. 00 Dose 2-0 No Unknown 5-14 00:00: 00 Dose 2-0 No Unknown 5-14 00:00: 00 Dose 2-0 No Unknown 5-14 00:00: 00 Dose 2-0 No Unknown 5-14 00:00: 00 Victoza 2-0 No (18 3-Christofer [...] mg tablet 5-14 00:00: 00 Janumet XR 2022-0 No 1mg 100 5-14 mg-1,000 mg 00:00: tablet,exte 00 nded release Victoza 2022-0 No (18 3-Christofer 0.6 5-14 mg/3 mg/0.1 [...] mg tablet 5-14 00:00: 00 Janumet XR 2022-0 No 1mg 100 5-14 mg-1,000 mg 00:00: tablet,exte 00 nded release Victoza 2022-0 No (18 3-Christofer 0.6 5-14 mg/3 mg/0.1 [...] mg tablet 5-14 00:00: 00 Janumet XR 2022-0 No 1mg 100 5-14 mg-1,000 mg 00:00: tablet,exte 00 nded release Victoza 2022-0 No (18 3-Christofer 0.6 5-14 mg/3 mg/0.1 [...] mg tablet 5-14 00:00: 00 Janumet XR 2022-0 No 1mg 100 5-14 mg-1,000 mg 00:00: tablet,exte 00 nded release Victoza 2022-0 No (18 3-Christofer 0.6 5-14 mg/3 mg/0.1 [...] mg tablet 5-14 00:00: 00 Janumet XR 2022-0 No 1mg 100 5-14 mg-1,000 mg 00:00: tablet,exte 00 nded release Victoza 2022-0 No (18 3-Christofer 0.6 5-14 mg/3 mg/0.1 mL 00:00: mL) (18 mg/3 00 mL) subcutane s pen injector Tresiba 2-0 No (3 [...] mg tablet 5-14 00:00: 00 Janumet XR 2022-0 No 1mg 100 5-14 mg-1,000 mg 00:00: tablet,exte 00 nded release Victoza 2022-0 No (18 3-Christofer 0.6 5-14 mg/3 mg/0.1 [...] mg-1,000 mg 00:00: tablet,exte 00 nded release Dose 2-0 No Unknown 5-14 00:00: 00 Dose 2022-0 No Unknown 5-14 00:00: 00 TAKE 1 2-0 No TABLET 5-14 DAILY. 00:00: 00 TAKE 1 2-0 No TABLET 5-14 TWICE 00:00: DAILY. 00 Dose 2-0 No Unknown 5-14 00:00: 00 Dose 2-0 No Unknown 5-14 00:00: 00 Dose 2-0 No Unknown 5-14 00:00: 00 Dose 2022-0 No Unknown 5-14 00:00: 00 Dose 2022-0 No Unknown 4-19 00:00: 00 Dose 2022-0 No Unknown 4-19 00:00: 00 doxycycline 2022-0 No 1mg hyclate 100 4-19 mg capsule [...] 2022-0 No Unknown 4-19 00:00: 00 doxycycline 2022-0 No 1mg hyclate 100 4-19 mg capsule [...] 4-19 00:00: 00 Dose 2022-0 No Unknown 4-15 [...] 2022-0 No Unknown 4-15 00:00: 00 Dose 2-0 No Unknown 4-13 00:00: 00 Dose 2-0 No Unknown 4-13 00:00: 00 Dose 2-0 No Unknown 4-13 00:00: 00 Dose 2021-0 No Unknown 4-13 00:00: 00 Dose 2-0 No Unknown 4-13 00:00: 00 Dose 2022-0 No Unknown 4-13 00:00: 00 Dose 2-0 No Unknown 4-13 00:00: 00 Dose 2-0 No Unknown 4-13 00:00: 00 Dose 2-0 No Unknown 4-13 00:00: 00 Dose 2-0 No Unknown 4-13 00:00: 00 Dose 2021-0 No Unknown 4-13 00:00: 00 NaCl 0.9% 2021- No 1000mL at 999 Uni vers (NS) IV 10-17 mL/hr, ity of infusion 02:00: 02:08 [place] 1,000 mL 00 :00 s, ONCE, 1 Medic al dose, On Branch Tue10/16/21 at 2100, [place] insulin 2021- No .1U/kg 10.3 Units U nivers regular 10-17 (rounded ity of human 02:00: 01:14 from 1034 [place] (HUMULIN R) 00 :00 Units = [...] 1000mL at 999 Uni vers (NS) bolus 10-16-09 mL/hr, ity of infusion 23:15: 00:38 1,000 mL, [place] 1,000 mL 00 :00 IV Medical Infusion, Branch ONCE, 1 dose, On Tue10/16/21 at 1815, [place] ondansetron 2021-0 2021- No 4mg 4 mg, [...] dose, On Branch Tue10/16/21 at 1815, Routine
archeology faculty member approving Restricted medication : BEATRIZ EDUARDO oxybutynin 2021-0 Yes [id number] 5mg Take 1 Univers chloride 5 4-08 tablet by ity of mg tablet 00:00: mouth 3 [place] 00 (three) Medical times Branch daily as needed for Bladder spasms. ondansetron 2021-0 Yes [id number] 4mg Take 1 Univers 4 mg 4-08 tablet by ity of disintegrat 00:00: mouth [place] ing tablet 00 every 8 Medica l (eight) Branch hours as needed for Nausea and Vomiting (N/V). oxybutynin 2021-0 Yes [id number] 5mg Take 1 Univers chloride 5 4-08 tablet by ity of mg tablet 00:00: mouth 3 [place] 00 (three) Medical times Branch daily as needed for Bladder spasms. ondansetron 2021-0 Yes [id number] 4mg Take 1 Univers 4 mg 4-08 [...] to 7 days. Indication s: acute pain Dose 2-0 No Unknown 4-02 00:00: 00 Dose 2022-0 No Unknown 4-02 00:00: 00 Dose 2022-0 No Unknown 4-02 00:00: 00 Dose 2022-0 No Unknown 4-02 00:00: 00 Dose 2022-0 No Unknown 4-02 00:00: 00 Dose 2022-0 No Unknown 4-02 00:00: 00 Dose 2-0 No Unknown 4-02 00:00: 00 Dose 2-0 No Unknown 4-02 00:00: 00 Dose 2-0 No Unknown 4-02 00:00: 00 Dose 2-0 No Unknown 4-02 00:00: 00 Dose 2-0 No Unknown 4-02 00:00: 00 Dose 2-0 No Unknown 4-02 00:00: 00 Dose 2-0 No Unknown 4-02 00:00: 00 Dose 2-0 No Unknown 4-02 00:00: 00 Dose 2-0 No Unknown 4-02 00:00: 00 Dose 2-0 No Unknown 4-02 00:00: 00 Dose 2-0 No Unknown 4-02 00:00: 00 Dose 2-0 No Unknown 4-02 00:00: 00 Dose 2-0 No Unknown 4-02 00:00: 00 Dose 2-0 No Unknown 4-02 00:00: 00 Dose 2-0 No Unknown 4-02 00:00: 00 Dose 2-0 No Unknown 4-02 00:00: 00 Dose 2-0 No Unknown 4-02 00:00: 00 Dose 2-0 No Unknown 4-02 00:00: 00 Dose 2-0 No Unknown 4-02 00:00: 00 Dose 2-0 No Unknown 4-02 00:00: 00 Dose 2-0 No Unknown 4-02 00:00: 00 Dose 2-0 No Unknown 4-02 00:00: 00 Dose 2-0 No Unknown 4-02 00:00: 00 Dose 2-0 No Unknown 4-02 00:00: 00 Dose 2-0 No Unknown 4-02 00:00: 00 Pyridium 2022-0 [...] 3-31 00:00: 00 Dose 2022-0 No Unknown 3-29 [...] tablet 00:00: 00 Dose 2022-0 No Unknown 3- [...] 2022-0 No Unknown 3- 00:00: 00 Dose 2-0 No Unknown 3- 00:00: 00 Dose 2022-0 No Unknown 3- 00:00: 00 Dose 2022-0 No Unknown 3-29 00:00: 00 Dose 2022-0 No Unknown 3-29 00:00: 00 Dose 2-0 No Unknown 3- 00:00: 00 Dose 2022-0 No Unknown 3- 00:00: 00 Diflucan 2-0 No 1mg 150 [...] 2022-0 No Unknown 3-29 00:00: 00 Dose 2-0 No Unknown 3-29 [...] Dose 2022-0 No Unknown 3- 00:00: 00 Diflucan 2-0 No 1mg 150 [...] mg Tue Branch 09/22/21 at 1015, Routine Dose 0 No Unknown 1-19 00:00: 00 Dose 2021-0 [...] 2021-0 No Unknown 1-19 00:00: 00 Dose 2022-0 No Unknown 1-19 00:00: 00 Dose 2022-0 No Unknown 1-19 00:00: 00 Dose 2022-0 No Unknown 1-19 00:00: 00 amitriptyli 2022-0 No 1mg ne 10 mg 1-19 tablet 00:00: 00 gabapentin 2022-0 No 3mg 300 mg 1-19 capsule 00:00: 00 Dose 2022-0 No Unknown 1-19 00:00: 00 Dose 2022-0 No Unknown 1-19 00:00: 00 hydrochloro 2022-0 No 1mg thiazide 25 1-19 mg tablet 00:00: 00 Dose 2022-0 No Unknown 1-19 00:00: 00 Dose 2022-0 No Unknown 1-19 00:00: 00 Dose 2022-0 No Unknown 1-19 00:00: 00 Dose 2022-0 No Unknown 1-19 00:00: 00 amitriptyli 2022-0 No 1mg ne 10 mg 1-19 tablet 00:00: 00 gabapentin 2022-0 No 3mg 300 mg 1-19 capsule 00:00: 00 Dose 2022-0 No Unknown 1-19 00:00: 00 Dose 2022-0 No Unknown 1-19 00:00: 00 hydrochloro 2022-0 No 1mg thiazide 25 1-19 mg tablet 00:00: 00 Dose 2022-0 No Unknown 1-19 00:00: 00 Dose 2022-0 No Unknown 1-19 00:00: 00 Dose 2022-0 No Unknown 1-19 00:00: 00 Dose 2022-0 No Unknown 1-19 00:00: 00 amitriptyli 2022-0 No 1mg ne 10 mg 1-19 tablet 00:00: 00 gabapentin 2022-0 No 3mg 300 mg 1-19 capsule 00:00: 00 Dose 2022-0 No Unknown 1-19 00:00: 00 Dose 2022-0 No Unknown 1-19 00:00: 00 hydrochloro 2022-0 No 1mg thiazide 25 1-19 mg tablet 00:00: 00 Dose 2022-0 No Unknown 1-19 00:00: 00 Dose 2022-0 No Unknown 1-19 00:00: 00 Dose 2022-0 No Unknown 1-19 00:00: 00 Dose 2022-0 No Unknown 1-19 00:00: 00 amitriptyli 2022-0 No 1mg ne 10 mg 1-19 tablet 00:00: 00 gabapentin 2022-0 No 3mg 300 mg 1-19 capsule 00:00: 00 Dose 2022-0 No Unknown 1-19 00:00: 00 Dose 2022-0 No Unknown 1-19 00:00: 00 hydrochloro 2022-0 No 1mg thiazide 25 1-19 mg tablet 00:00: 00 Dose 2022-0 No Unknown 1-19 00:00: 00 Dose 2022-0 No Unknown 1-19 00:00: 00 Dose 2022-0 No Unknown 1-19 00:00: 00 Dose 2022-0 No Unknown 1-19 00:00: 00 amitriptyli 2022-0 No 1mg ne 10 mg 1-19 tablet 00:00: 00 gabapentin 2022-0 No 3mg 300 mg 1-19 capsule 00:00: 00 Dose 2022-0 No Unknown 1-19 00:00: 00 Dose 2022-0 No Unknown 1-19 00:00: 00 hydrochloro 2022-0 No 1mg thiazide 25 1-19 mg tablet 00:00: 00 Dose 2022-0 No Unknown 1-19 00:00: 00 Dose 2022-0 No Unknown 1-19 00:00: 00 Dose 2022-0 No Unknown 1-19 00:00: 00 Dose 2022-0 No Unknown 1-19 00:00: 00 amitriptyli 2022-0 No 1mg ne 10 mg 1-19 tablet 00:00: 00 gabapentin 2022-0 No 3mg 300 mg 1-19 capsule 00:00: 00 Dose 2022-0 No Unknown 1-19 00:00: 00 Dose 2022-0 No Unknown 1-19 00:00: 00 hydrochloro 2022-0 No 1mg thiazide 25 1-19 mg tablet 00:00: 00 Dose 2022-0 No Unknown 1-19 00:00: 00 Dose 2022-0 No Unknown 1-19 00:00: 00 Dose 2022-0 No Unknown 1-19 00:00: 00 Dose 2022-0 No Unknown 1-19 00:00: 00 amitriptyli 2022-0 No 1mg ne 10 mg 1-19 tablet 00:00: 00 gabapentin 2022-0 No 3mg 300 mg 1-19 capsule 00:00: 00 Dose 2022-0 No Unknown 1-19 00:00: 00 Dose 2-0 No Unknown 1-19 00:00: 00 hydrochloro 2-0 [...] 2-0 No Unknown 1-19 00:00: 00 Dose 2022-0 No Unknown 1-19 00:00: 00 Dose 2-0 No Unknown 1-19 00:00: 00 Dose 2-0 No Unknown 1-19 00:00: 00 Dose 2-0 No Unknown 1-19 00:00: 00 Dose 2-0 No Unknown 1-19 00:00: 00 Dose 2022-0 No Unknown 1-19 00:00: 00 Dose 2-0 No Unknown 1-19 00:00: 00 Dose 2-0 No Unknown 1-19 00:00: 00 Dose 2-0 No Unknown 1-19 00:00: 00 morpHINE 2020-1 2020- No 4mg 4 mg, Slow Un fabiana injection 4 2- 12- IV Push, ity of mg 14:30: 13:31 ONCE, 1 [place] 00 :00 dose, On [facility] 06/18/21 at 0830, STAT NaCl 0.9% 2020-07 Yes 1000mL at 999 Univ ers (NS) IV 2-09 mL/hr, ity of infusion 14:00: Intravenou Blake as 1,000 mL 00 s, Medical CONTINUOUS Branch , Starting on Rachael 06/18/21 at 0800, Until Discontinu ed, Routine ketorolac 2020-07 30mg 30 mg, Unive rs (TORADOL) 2-09 12-09 Slow IV ity of injection 13:15: [...] Indication s: acute pain ondansetron 2020-07 Yes [id number] 4mg Take 1 [facility] 4 mg 2-09 [...] Indication s: acute pain ondansetron 2020-07 Yes [id number] 4mg Take 1 [facility] 4 mg 2-09 [...] Indication s: acute pain ondansetron 2020-07 Yes [id number] 4mg Take 1 [facility] 4 mg 2-09 [...] Indication s: acute pain ondansetron 2020-07- No [id number] 4mg Take 1 [facility] 4 mg 08-19 [...] 4 mg tablet 2-08 00:00: 00 Diflucan 2020- No 1mg 150 mg 2-08 tablet 00:00: 00 hydrochloro 2020-1 No 1mg thiazide 25 2-08 mg tablet 00:00: 00 glimepiride 2020- No 1mg 4 mg tablet 2-08 00:00: 00 Diflucan 2020- No 1mg 150 mg 2-08 tablet 00:00: 00 hydrochloro 2020- No 1mg thiazide 25 2-08 mg tablet 00:00: 00 glimepiride 2020- No 1mg 4 mg tablet 2-08 00:00: 00 Diflucan 2020- No 1mg 150 mg 2-08 tablet 00:00: 00 hydrochloro 2020- No 1mg thiazide 25 2-08 mg tablet 00:00: 00 glimepiride 2020-1 No 1mg 4 mg tablet 2-08 00:00: 00 Diflucan 2020- No 1mg 150 mg 2-08 tablet 00:00: 00 hydrochloro 2020-1 No 1mg thiazide 25 2-08 mg tablet 00:00: 00 glimepiride 2020- No 1mg 4 mg tablet 2-08 00:00: 00 Diflucan 2020- No 1mg 150 mg 2-08 tablet 00:00: 00 hydrochloro 2020-1 No 1mg thiazide 25 2-08 mg tablet 00:00: 00 glimepiride 2020- No 1mg 4 mg tablet 2-08 00:00: 00 Diflucan 2020- No 1mg 150 mg 2-08 tablet 00:00: 00 hydrochloro 2020-1 No 1mg thiazide 25 2-07 mg tablet 00:00: 00 glimepiride 2020-1 No 1mg 4 mg tablet 2-07 00:00: 00 Diflucan 2020- No 1mg 150 mg 2-07 tablet 00:00: 00 hydrochloro 2020-1 No 1mg thiazide 25 2-07 mg tablet 00:00: 00 glimepiride 2020-1 No 1mg 4 mg tablet 2-07 00:00: 00 Diflucan 2020- No 1mg 150 mg 2-07 tablet 00:00: 00 hydrochloro 2020- No 1mg thiazide 25 2-07 mg tablet 00:00: 00 glimepiride 2020- No 1mg 4 mg tablet 2-07 00:00: 00 Diflucan 2020- No 1mg 150 mg 2-07 tablet 00:00: 00 hydrochloro 2020- No 1mg thiazide 25 2-07 mg tablet 00:00: 00 glimepiride 2020- No 1mg 4 mg tablet 2-07 00:00: 00 Diflucan 2020- No 1mg 150 mg 2-07 tablet 00:00: 00 hydrochloro 2020- No 1mg thiazide 25 2-07 mg tablet 00:00: 00 glimepiride 2020- No 1mg 4 mg tablet 2-07 00:00: 00 Diflucan 2020- No 1mg 150 mg 2-07 tablet 00:00: 00 hydrochloro 2020- No 1mg thiazide 25 2-07 mg tablet 00:00: 00 glimepiride 2020- No 1mg 4 mg tablet 2-07 00:00: 00 Diflucan 2020- No 1mg 150 mg 2-07 tablet 00:00: 00 hydrochloro 2020- No 1mg thiazide 25 2-07 mg tablet 00:00: 00 glimepiride 2020- No 1mg 4 mg tablet 2-07 00:00: 00 Diflucan 2020- No 1mg 150 mg 2-07 tablet 00:00: 00 hydrochloro 2020- No 1mg thiazide 25 2-07 mg tablet 00:00: 00 glimepiride 2020- No 1mg 4 mg tablet 2-07 00:00: 00 Diflucan 2020- No 1mg 150 mg 2-07 tablet 00:00: 00 hydrochloro 2020- No 1mg thiazide 25 2-07 mg tablet 00:00: 00 glimepiride 2020- No 1mg 4 mg tablet 2-07 00:00: 00 Diflucan 2020- No 1mg 150 mg 2-07 tablet 00:00: 00 hydrochloro 2020- No 1mg thiazide 25 2-07 mg tablet 00:00: 00 glimepiride 2020- No 1mg 4 mg tablet 2-07 00:00: [...] 05/30/21 at 1800, Routine iopamidol 2020-07- No [id number] 100mL 100 mL, Univers (ISOVUE 07-30 9109 Intravenou ity o f 370-500 mL) 23:48: 23:48 s, ONCE, 1 [place] injection 00 :00 dose, On Medica l 100 mL Sat Branch 05/30/21 at 1800, Routine ibuprofen 2020-07 Yes [id number] 600mg Take 1 Univers 600 mg -20 [id number] tablet by ity of tablet 00:00: mouth [place] 00 every 6 Medical (six) Branch hours as needed for Pain (scale 4-6). traMADoL 50 2020-07 Yes [id number] 50mg Take 1 Univ ers mg tablet 1-20 tablet by ity o f 00:00: mouth [place] 00 every 6 Medical (six) Branch hours as needed for Pain (scale 7-10). Indication s: acute pain ibuprofen 2020-07 Yes [id number] 600mg Take 1 [facility] 600 mg 1-20 [id number] tablet by ity of tablet 00:00: mouth [place] 00 every 6 Medical (six) Branch hours as needed for Pain (scale 4-6). traMADoL 50 2020-07 Yes [id number] 50mg Take 1 Univ ers mg tablet 1-20 tablet by ity o f 00:00: mouth [place] 00 every 6 Medical (six) Branch hours as needed for Pain (scale 7-10). Indication s: acute pain ibuprofen 2020-07 Yes [id number] 600mg Take 1 [facility] 600 mg 1-20 [id number] tablet by ity of tablet 00:00: mouth [place] 00 every 6 Medical (six) Branch hours as needed for Pain (scale 4-6). traMADoL 50 2020-07 Yes [id number] 50mg Take 1 Univ ers mg tablet 1-20 tablet by ity o f 00:00: mouth [place] 00 every 6 Medical (six) Branch hours as needed for Pain (scale 7-10). Indication s: acute pain ibuprofen 2020-07 Yes [id number] 600mg Take 1 [facility] 600 mg 1-20 [id number] tablet by ity of tablet 00:00: mouth [place] 00 every 6 Medical (six) Branch hours as needed for Pain (scale 4-6). traMADoL 50 2020-07 Yes [id number] 50mg Take 1 Univ ers mg tablet 1-20 tablet by ity o f 00:00: mouth [place] 00 every 6 Medical (six) Branch hours as needed for Pain (scale 7-10). Indication s: acute pain ibuprofen 2020-07 Yes [id number] 600mg Take 1 [facility] 600 mg 1-20 [id number] tablet by ity of tablet 00:00: mouth [place] 00 every 6 Medical (six) Branch hours as needed for Pain (scale 4-6). ibuprofen 2020-07 Yes [id number] 600mg Take 1 [facility] 600 mg 1-20 [id number] tablet by ity of tablet 00:00: mouth [...] mg tablet 07-11 00:00: 00 Abilify 5 2020- No 1mg mg tablet 07-11 00:00: 00 Abilify 5 2020-07 No 1mg mg tablet 07-11 00:00: 00 Abilify 5 2020-07 No 1mg mg tablet 07-11 00:00: 00 Abilify 5 2020-07 No 1mg mg tablet 07-11 00:00: 00 Abilify 5 2020-07 No 1mg mg tablet 07-11 00:00: 00 Abilify 5 2020-07 No 1mg mg tablet 07-11 00:00: 00 TAKE 1 TAB 2020-1 No PO Q AM 07-11 00:00: 00 TAKE 1 TAB 2020-1 No PO Q AM 07-11 00:00: 00 sumatriptan 2020-1 No 1mg 50 mg 0-07 tablet 00:00: 00 sumatriptan 2020-1 No 1mg 50 mg 0-07 tablet 00:00: 00 sumatriptan 2020-1 No 1mg 50 mg 0-07 tablet 00:00: 00 sumatriptan 2020-1 No 1mg 50 mg 0-07 tablet 00:00: 00 sumatriptan 2020-1 No 1mg 50 mg 0-07 tablet 00:00: 00 sumatriptan 2020-1 No 1mg 50 mg 0-07 tablet 00:00: 00 sumatriptan 2020-1 No 1mg 50 mg 0-07 tablet 00:00: 00 sumatriptan 2020-1 No 1mg 50 mg 0-07 tablet 00:00: 00 sumatriptan 2020-1 No 1mg 50 mg 0-07 tablet 00:00: 00 Dose 2020-1 No Unknown 0-07 00:00: 00 Dose 2020-1 No Unknown 0-07 00:00: 00 Tresiba 2020-0 No (3 mL) FlexTouch - U-100 00:00: insulin 100 00 unit/mL (3 mL) subcutaneou s pen alogliptin 2020-0 No 1mg 25 mg 04-07 tablet 00:00: 00 lisinopril 2020-0 No 1mg 5 mg tablet 04-07 00:00: 00 hydrochloro 2021-0 No 1mg thiazide 25 9-28 mg tablet 00:00: 00 glimepiride 2021-0 No 1mg 4 mg tablet 04-07 00:00: 00 Janumet XR 2020-0 No 1mg 100 9-28 mg-1,000 mg 00:00: tablet,exte 00 nded release amitriptyli 1-0 No 1mg ne 10 mg 9-28 tablet 00:00: 00 gabapentin 2021-0 No 3mg 300 mg 9-28 capsule 00:00: 00 Vascepa 1 1-0 No 1gram gram - capsule 00:00: 00 Tresiba 2021-0 No (3 mL) FlexTouch 9-28 U-100 00:00: insulin 100 00 unit/mL (3 mL) subcutaneou s pen alogliptin 1-0 No 1mg 25 mg - tablet 00:00: 00 lisinopril 2021-0 No 1mg [...] 00 gabapentin 2021-0 No 3mg 300 mg -28 capsule 00:00: 00 Vascepa 1 2021-0 No 1gram gram -28 capsule 00:00: 00 Tresiba 2021-0 No (3 mL) FlexTouch 9-28 U-100 00:00: insulin 100 00 unit/mL (3 mL) subcutaneou s pen alogliptin 1-0 No 1mg 25 mg 9-28 tablet 00:00: 00 lisinopril 2021-0 No 1mg 5 mg tablet 04-07 00:00: 00 hydrochloro 2021-0 No 1mg thiazide 25 9-28 mg tablet 00:00: 00 glimepiride 2021-0 No 1mg 4 mg tablet 04-07 00:00: 00 Janumet XR 1-0 No 1mg 100 9-28 mg-1,000 mg 00:00: tablet,exte 00 nded release amitriptyli 1-0 No 1mg ne 10 mg -28 tablet 00:00: 00 gabapentin 2021-0 No 3mg 300 mg 9-28 capsule 00:00: 00 Vascepa 1 1-0 No 1gram gram 9-28 capsule 00:00: 00 Tresiba 2021-0 No (3 mL) FlexTouch 9-28 U-100 00:00: insulin 100 00 unit/mL (3 mL) subcutaneou s pen alogliptin 1-0 No 1mg 25 mg 9-28 tablet 00:00: [...] 25 mg -28 tablet 00:00: 00 lisinopril 1-0 No 1mg 5 mg tablet 04-07 00:00: 00 hydrochloro 2021-0 No 1mg thiazide 25 9-28 mg tablet 00:00: 00 glimepiride 1-0 No 1mg 4 mg tablet 04-07 00:00: 00 Janumet XR 1-0 No 1mg 100 9-28 mg-1,000 mg 00:00: tablet,exte 00 nded release amitriptyli 1-0 No 1mg ne 10 mg 9-28 tablet 00:00: 00 gabapentin 1-0 No 3mg 300 mg 9- capsule 00:00: 00 Vascepa 1 1-0 No 1gram gram 9- capsule 00:00: 00 Tresiba 2021-0 No (3 mL) FlexTouch 9-28 U-100 00:00: insulin 100 00 unit/mL (3 mL) subcutaneou s pen alogliptin 2020-0 No 1mg 25 mg 9-28 tablet 00:00: 00 lisinopril 1-0 No 1mg 5 mg tablet 04-07 00:00: 00 hydrochloro 1-0 No 1mg thiazide 25 9-28 mg tablet 00:00: 00 glimepiride 1-0 No 1mg 4 mg tablet 04-07 00:00: 00 Janumet XR 1-0 No 1mg 100 9-28 mg-1,000 mg 00:00: tablet,exte 00 nded release amitriptyli 2020-0 No 1mg ne 10 mg - tablet 00:00: 00 gabapentin 1-0 No 3mg 300 mg 9- capsule 00:00: 00 Vascepa 1 1-0 No 1gram gram - capsule 00:00: 00 Tresiba 2021-0 No (3 mL) FlexTouch - U-100 00:00: insulin 100 00 unit/mL (3 mL) subcutaneou s pen alogliptin 2020-0 No 1mg 25 mg -28 tablet 00:00: 00 lisinopril 1-0 No 1mg 5 mg tablet 04-07 00:00: 00 hydrochloro 2021-0 No 1mg thiazide 25 9-28 mg tablet 00:00: 00 glimepiride 1-0 No 1mg 4 mg tablet 04-07 00:00: 00 Janumet XR 1-0 No 1mg 100 9-28 mg-1,000 mg 00:00: tablet,exte 00 nded release amitriptyli 1-0 No 1mg ne 10 mg 9-28 tablet 00:00: 00 gabapentin 2021-0 No 3mg 300 mg 9-28 capsule 00:00: 00 Vascepa 1 1-0 No 1gram gram 9- capsule 00:00: 00 Tresiba 1-0 No (3 mL) FlexTouch 9-28 U-100 00:00: insulin 100 00 unit/mL (3 mL) subcutaneou s pen alogliptin 1-0 No 1mg 25 mg -28 tablet 00:00: 00 lisinopril 2021-0 No 1mg 5 mg tablet 04-07 00:00: 00 hydrochloro 2021-0 No 1mg thiazide 25 9-28 mg tablet 00:00: 00 glimepiride 1-0 No 1mg 4 mg tablet 04-07 00:00: 00 Janumet XR 2020-0 No 1mg 100 9- mg-1,000 mg 00:00: tablet,exte 00 nded release amitriptyli 2020-0 No 1mg ne 10 mg - tablet 00:00: 00 gabapentin 2021-0 No 3mg 300 mg - capsule 00:00: 00 Vascepa 1 1-0 No 1gram gram - capsule 00:00: 00 Tresiba 1-0 No (3 mL) FlexTouch - U-100 00:00: insulin 100 00 unit/mL (3 mL) subcutaneou s pen alogliptin 2020-0 No 1mg 25 mg - tablet 00:00: 00 lisinopril 2020-0 No 1mg 5 mg tablet 04-07 00:00: 00 hydrochloro 1-0 No 1mg thiazide 25 9-28 mg tablet 00:00: 00 glimepiride 1-0 No 1mg 4 mg tablet 04-07 00:00: 00 Janumet XR 1-0 No 1mg 100 9-28 mg-1,000 mg 00:00: tablet,exte 00 nded release amitriptyli 1-0 No 1mg ne 10 mg - tablet 00:00: 00 gabapentin 2021-0 No 3mg 300 mg - capsule 00:00: 00 Vascepa 1 2021-0 No 1gram gram - capsule 00:00: 00 Tresiba 2021-0 No (3 mL) FlexTouch 9-28 U-100 00:00: insulin 100 00 unit/mL (3 mL) subcutaneou s pen alogliptin 2021-0 No 1mg 25 mg -28 tablet 00:00: [...] 00 gabapentin 2021-0 No 3mg 300 mg -28 capsule 00:00: 00 Dose 1-0 No Unknown 04-07 00:00: 00 Tresiba 1-0 No (3 mL) FlexTouch - U-100 00:00: insulin 100 00 unit/mL (3 mL) dwayne s pen alogliptin 2020-0 No 1mg 25 mg -28 tablet 00:00: 00 lisinopril 1-0 No 1mg 5 mg tablet 04-07 00:00: 00 hydrochloro 1-0 No 1mg thiazide 25 9-28 mg tablet 00:00: 00 glimepiride 1-0 No 1mg 4 mg tablet 04-07 00:00: 00 Janumet XR 2020-0 No 1mg 100 9-28 mg-1,000 mg 00:00: tablet,exte 00 nded release amitriptyli 2020-0 No 1mg ne 10 mg -28 tablet 00:00: 00 gabapentin 2021-0 No 3mg 300 mg -28 capsule 00:00: 00 Dose 2021-0 No Unknown 04-07 00:00: 00 Augmentin 1-0 No 1mg 875 mg-125 9-13 mg tablet 00:00: 00 fluconazole 2021-0 No 1mg 200 mg 9-13 tablet 00:00: 00 Flonase 1-0 No 2mcg/ac Allergy 9-13 tuation Relief 50 00:00: mcg/actuati 00 on nasal spray,suspe nsion Augmentin 1-0 No 1mg 875 mg-125 9-13 mg tablet 00:00: 00 fluconazole 2021-0 No 1mg 200 mg 9-13 tablet 00:00: 00 Flonase 1-0 No 2mcg/ac Allergy 9-13 tuation Relief 50 [...] 200 mg 9-13 tablet 00:00: 00 Flonase 1-0 No 2mcg/ac Allergy 9-13 tuation Relief 50 00:00: mcg/actuati 00 on nasal spray,suspe nsion Augmentin 1-0 No 1mg 875 mg-125 9-13 mg tablet 00:00: 00 fluconazole 2021-0 No 1mg 200 mg 9-13 tablet 00:00: 00 Flonase 1-0 No 2mcg/ac Allergy 9-13 tuation Relief 50 [...] mcg/actuati 00 on nasal spray,suspe nsion Augmentin 2021-0 No 1mg 875 mg-125 9-13 mg tablet 00:00: 00 fluconazole 2021-0 No 1mg 200 mg 9-13 tablet 00:00: 00 Flonase 0 No 2mcg/ac Allergy -13 tuation Relief 50 00:00: mcg/actuati 00 on nasal spray,suspe nsion Augmentin 0 No 1mg 875 mg-125 9-13 mg tablet 00:00: 00 fluconazole 2020-0 No 1mg 200 mg 9-13 tablet 00:00: 00 Flonase 0 No 2mcg/ac Allergy -13 tuation Relief 50 00:00: mcg/actuati 00 on nasal spray,suspe nsion Dose 0 No Unknown 03-23 00:00: 00 Dose 2020-0 No Unknown 03-23 00:00: 00 Dose 0 No Unknown 03-23 00:00: 00 Dose 0 No Unknown 03-23 00:00: 00 Dose 0 No Unknown 03-23 00:00: 00 Dose 0 No Unknown 03-23 00:00: 00 VASCEPA 1 0 Yes [id number] TAKE 3 U nivers gram 9-10 CAPSULES ity of capsule 00:00: BY MOUTH [place] EVERY DAY Medical Branch VASCEPA 1 2020-0 Yes [id number] TAKE 3 U nivers gram 9-10 CAPSULES ity of capsule 00:00: BY MOUTH [place] EVERY DAY Medical Branch VASCEPA 1 2020-0 Yes [id number] TAKE 3 U nivers gram 9-10 CAPSULES ity of capsule 00:00: BY MOUTH [place] EVERY DAY Medical Branch VASCEPA 1 2020-0 Yes [id number] TAKE 3 U nivers gram 9-10 CAPSULES ity of capsule 00:00: BY MOUTH [place] EVERY DAY Medical Branch VASCEPA 1 2020-0 Yes [id number] TAKE 3 U nivers gram 9-10 CAPSULES ity of capsule 00:00: BY MOUTH [place] EVERY DAY Medical Branch VASCEPA 1 2020-0 Yes [id number] TAKE 3 U nivers gram 9-10 CAPSULES ity of capsule 00:00: BY MOUTH [place] EVERY DAY Medical Branch VASCEPA 1 2020-0 Yes [id number] TAKE 3 U nivers gram 9-10 CAPSULES ity of capsule 00:00: BY MOUTH [place] EVERY DAY Medical Branch azithromyci 2021-0 No mg n 250 mg [...] mg-10 mg/5 00:00: mL oral 00 syrup Dose 2021-0 No Unknown 9-10 00:00: 00 Bromfed DM 2021-0 No 5mg/5 2 mg-30 9-10 mL mg-10 mg/5 00:00: mL oral 00 syrup Dose 2021-0 No Unknown 9-10 00:00: 00 Bromfed DM 2021-0 No 5mg/5 2 mg-30 9-10 mL mg-10 mg/5 00:00: mL oral 00 syrup metronidazo 2021-0 No 1mg le 500 mg [...] le 500 mg 8-06 tablet 00:00: 00 TAKE 1 2021-0 No TABLET 8-06 TWICE DAILY 00:00: UNTIL 00 FINISHED. TAKE 1 1-0 No TABLET 8-06 TWICE DAILY 00:00: UNTIL 00 FINISHED. triamcinolo 2021-0 No % ne 8-04 acetonide [...] 1mg 100 mg 8-04 capsule 00:00: 00 Dose 2021-0 No Unknown 8-04 00:00: 00 Dose 2021-0 No Unknown 8-04 00:00: 00 Dose 2021-0 No Unknown 8-04 00:00: 00 Dose 2021-0 No Unknown 8-04 00:00: 00 Tresiba 2021-0 No (3 mL) [...] glimepiride 2021-0 No 1mg 4 mg tablet 02-06 00:00: 00 Diflucan 2021-0 No 1mg 150 [...] lisinopril 2021-0 No 1mg 5 mg tablet 7 00:00: 00 glimepiride 2021-0 No 1mg 4 mg tablet 7-30 00:00: [...] glimepiride 2021-0 No 1mg 4 mg tablet 7-30 00:00: 00 Diflucan 2021-0 No 1mg 150 mg 7-30 tablet 00:00: 00 amitriptyli 2021-0 No 1mg ne 10 mg 7-30 tablet 00:00: 00 gabapentin 2021-0 No 3mg 300 mg 7-30 capsule 00:00: 00 Dose 2021-0 No Unknown 7-30 00:00: 00 TAKE 1 1-0 No TABLET 7-30 DAILY. 00:00: 00 TAKE 1 1-0 No TABLET 7-30 TWICE 00:00: DAILY. 00 Dose 1-0 No Unknown 7-30 00:00: 00 Dose 1-0 No Unknown 7-30 00:00: 00 Dose 1-0 No Unknown 7-30 00:00: 00 Dose 1-0 No Unknown 7-30 00:00: 00 Dose 1-0 No Unknown 7-30 00:00: 00 TAKE 1 1-0 No TABLET 7-30 DAILY. 00:00: 00 TAKE 1 1-0 No TABLET 7-30 TWICE 00:00: DAILY. 00 Dose 1-0 No Unknown 7-30 00:00: 00 Dose 1-0 No Unknown 7-30 00:00: 00 Dose 1-0 No Unknown 7-30 00:00: 00 Dose 1-0 No Unknown 7-30 00:00: 00 buspirone 2021-0 No 1mg 10 [...] Dose 2021-0 No Unknown 6-23 00:00: 00 Dose 2021-0 No Unknown 6-23 00:00: 00 Dose 2021-0 No Unknown 6-23 00:00: 00 Dose 2021-0 No Unknown 6-23 00:00: 00 Dose 2021-0 No Unknown 6-23 00:00: 00 hydrocortis 1-0 No 1% one [...] % 6-20 topical 00:00: cream 00 amitriptyli 2021-0 No 1mg ne 10 mg 6-20 tablet 00:00: 00 hydrocortis 2021-0 No 1% one 2.5 % 6-20 topical 00:00: cream 00 amitriptyli 2021-0 No 1mg ne 10 mg 6-20 tablet 00:00: 00 hydrocortis 2021-0 No 1% one 2.5 % 6-20 topical 00:00: cream 00 amitriptyli 2021-0 No 1mg ne 10 mg 6-20 tablet 00:00: 00 hydrocortis 2021-0 No 1% one 2.5 % 6-20 topical 00:00: cream 00 amitriptyli 2021-0 No 1mg ne 10 mg 6-20 tablet 00:00: 00 hydrocortis 2021-0 No 1% one 2.5 % 6-20 topical 00:00: cream 00 amitriptyli 2021-0 No 1mg ne 10 mg 6-20 tablet 00:00: 00 hydrocortis 2021-0 No 1% one 2.5 % 6-20 topical 00:00: cream 00 amitriptyli 2021-0 No 1mg ne 10 mg 6-20 tablet 00:00: 00 Dose 2021-0 No Unknown 6-20 00:00: 00 Dose 2021-0 No Unknown 6-20 00:00: 00 Dose 2021-0 No Unknown 6-20 00:00: 00 Dose 2021-0 No Unknown 6-20 00:00: 00 hydroxyzine 2021-0 No 1mg HCl 50 mg 6-10 tablet 00:00: 00 gabapentin 2021-0 No 3mg 300 mg 6-10 capsule 00:00: 00 Dose 2021-0 No Unknown 6-10 00:00: 00 gabapentin 2021-0 No 3mg 300 mg 6-10 capsule 00:00: 00 hydroxyzine 2021-0 No 1mg HCl 50 mg 6-10 tablet 00:00: 00 gabapentin 2021-0 No 3mg [...] mg 6-10 capsule 00:00: 00 Janumet XR 2021-0 No 1mg 100 6-09 mg-1,000 mg 00:00: tablet,exte 00 nded release Janumet XR 1-0 No 1mg 100 6-09 mg-1,000 mg 00:00: tablet,exte 00 nded release Janumet XR 1-0 No 1mg 100 6-09 mg-1,000 mg 00:00: tablet,exte 00 nded release Janumet XR 1-0 No 1mg 100 6-09 mg-1,000 mg 00:00: tablet,exte 00 nded release Janumet XR 1-0 No 1mg 100 6-09 mg-1,000 mg 00:00: tablet,exte 00 nded release Janumet XR 1-0 No 1mg 100 6-09 mg-1,000 mg 00:00: tablet,exte 00 nded release Janumet XR 1-0 No 1mg 100 6-09 mg-1,000 mg 00:00: tablet,exte 00 nded release Janumet XR 1-0 No 1mg 100 6-09 mg-1,000 mg 00:00: tablet,exte 00 nded release Janumet XR 1-0 No 1mg 100 6-09 mg-1,000 mg 00:00: tablet,exte 00 nded release Janumet XR 1-0 No 1mg 100 6-09 mg-1,000 mg 00:00: tablet,exte 00 nded release Janumet XR 1-0 No 1mg 100 6-09 mg-1,000 mg 00:00: tablet,exte 00 nded release icosapent 2021-0 2021- No [id number] 3g Take 3 Univers ethyL 6-02 09-10 capsules ity of (VASCEPA) 1 00:00: 00:00 by mouth [place] gram 00 :00 daily. Medical capsule Branch Tresiba 2020-0 No (3 mL) FlexTouch 6-01 U-100 00:00: insulin 100 00 unit/mL (3 mL) subcutaneou s pen alogliptin 1-0 No 1mg 25 mg 6-01 tablet 00:00: 00 hydrochloro 2021-0 No 1mg thiazide 25 6-01 mg tablet 00:00: 00 metformin 2021-0 No 1mg 850 mg 6-01 tablet 00:00: 00 gabapentin 2021-0 No 1mg 800 mg 6-01 tablet 00:00: 00 Tresiba 1-0 No (3 mL) FlexTouch 6-01 U-100 00:00: insulin 100 00 unit/mL (3 mL) subcutaneou s pen alogliptin 1-0 No 1mg 25 mg 6-01 tablet 00:00: 00 hydrochloro 2021-0 No 1mg thiazide 25 6-01 mg tablet 00:00: 00 metformin 2021-0 No 1mg 850 mg 6-01 tablet 00:00: 00 gabapentin 2021-0 No 1mg 800 mg 6-01 tablet 00:00: 00 Tresiba 1-0 No (3 mL) FlexTouch 6-01 U-100 00:00: insulin 100 00 unit/mL (3 mL) subcutaneou s pen alogliptin 1-0 No 1mg 25 mg 6-01 tablet 00:00: 00 hydrochloro 2021-0 No 1mg thiazide 25 6-01 mg tablet 00:00: 00 metformin 2021-0 No 1mg 850 mg 6-01 tablet 00:00: 00 gabapentin 2021-0 No 1mg 800 mg 6-01 tablet 00:00: 00 Tresiba 2021-0 No (3 mL) FlexTouch 6-01 U-100 00:00: insulin 100 00 unit/mL (3 mL) subcutaneou s pen alogliptin 2021-0 No 1mg 25 mg 6-01 tablet 00:00: 00 hydrochloro 2021-0 No 1mg thiazide 25 6-01 mg tablet 00:00: 00 metformin 2021-0 No 1mg 850 mg 6-01 tablet 00:00: 00 gabapentin 2021-0 No 1mg 800 mg 6-01 tablet 00:00: 00 Tresiba 2021-0 No (3 mL) FlexTouch 6-01 U-100 00:00: insulin 100 00 unit/mL (3 mL) subcutaneou s pen alogliptin 2021-0 No 1mg 25 mg 6-01 tablet 00:00: 00 hydrochloro 2021-0 No 1mg thiazide 25 6-01 mg tablet 00:00: 00 metformin 2021-0 No 1mg 850 mg 6-01 tablet 00:00: 00 gabapentin 2021-0 No 1mg 800 mg 6-01 tablet 00:00: 00 Tresiba 2021-0 No (3 mL) FlexTouch 6-01 U-100 00:00: insulin 100 00 unit/mL (3 mL) subcutaneou s pen alogliptin 1-0 No 1mg 25 mg 6-01 tablet 00:00: 00 hydrochloro 2021-0 No 1mg thiazide 25 6-01 mg tablet 00:00: 00 metformin 2021-0 No 1mg 850 mg 6-01 tablet 00:00: 00 gabapentin 2021-0 No 1mg 800 mg 6-01 tablet 00:00: 00 Tresiba 2021-0 No (3 mL) FlexTouch 6-01 U-100 00:00: insulin 100 00 unit/mL (3 mL) subcutaneou s pen alogliptin 1-0 No 1mg 25 mg 6-01 tablet 00:00: 00 hydrochloro 2021-0 No 1mg thiazide 25 6-01 mg tablet 00:00: 00 metformin 2021-0 No 1mg 850 mg 6-01 tablet 00:00: 00 gabapentin 2021-0 No 1mg 800 mg 6-01 tablet 00:00: 00 Tresiba 2021-0 No (3 mL) FlexTouch 6-01 U-100 00:00: insulin 100 00 unit/mL (3 mL) subcutaneou s pen alogliptin 2021-0 No 1mg 25 mg 6-01 tablet 00:00: [...] 25 mg 6-01 tablet 00:00: 00 hydrochloro 1-0 No 1mg thiazide 25 6-01 mg tablet 00:00: 00 metformin 2020-0 No 1mg 850 mg 6-01 tablet 00:00: 00 gabapentin 2020-0 No 1mg 800 mg 6-01 tablet 00:00: 00 Tresiba 2020-0 No (3 mL) FlexTouch 6-01 U-100 00:00: insulin 100 00 unit/mL (3 mL) subcutaneou s pen gabapentin 2020-0 No 1mg 800 mg 6-01 tablet 00:00: 00 Dose 202-0 No Unknown 6- 00:00: 00 Dose 2020-0 No Unknown 6- 00:00: 00 Dose 2020-0 No Unknown 6- 00:00: 00 Tresiba 2020-0 No (3 mL) FlexTouch 6-01 U-100 00:00: insulin 100 00 unit/mL (3 mL) subcutaneou s pen gabapentin 2020-0 No 1mg 800 mg 6-01 tablet 00:00: 00 Dose 2020-0 No Unknown 6- 00:00: 00 Dose 202-0 No Unknown 6- 00:00: 00 Dose 2020-0 No Unknown 6- 00:00: 00 Lactobacill 0 Yes Take by [facility] 5-27 mouth. [facility] of acidophilus 22:32: [place] (PROBIOTIC 10 Medical ORAL) Branch MULTIVITAMI Yes Take by [facility] N ORAL 5-27 mouth. ity of 22:32: [place] 10 [facility] multivitami Yes Take by [facility] n with 5-27 mouth. ity of minerals 22:32: [place] (HAIR,SKIN 10 Medical AND NAILS Branch ORAL) Lactobacill Yes Take by [facility] us 5-27 mouth. ity of acidophilus 17:32: [place] (PROBIOTIC 10 Medical ORAL) Branch MULTIVITAMI Yes Take by [facility] N ORAL 5-27 mouth. ity of 17:32: [place] 10 [facility] multivitami 202-0 Yes Take by [facility] n with 5-27 mouth. ity of minerals 17:32: [place] (HAIR,SKIN 10 Medical AND NAILS Branch ORAL) Lactobacill 2020-0 Yes Take by [facility] us 5-27 mouth. ity of acidophilus 17:32: [place] (PROBIOTIC 10 Medical ORAL) Branch MULTIVITAMI 0 Yes Take by [facility] N ORAL 5-27 mouth. ity of 17:32: [place] [id number] Medical Branch multivitami 2020-0 Yes Take by [facility] n with 5-27 mouth. ity of minerals 17:32: [place] (HAIR,SKIN 10 Medical AND NAILS Branch ORAL) Lactobacill 0 Yes Take by [facility] us 5-27 mouth. ity of acidophilus 17:32: [place] (PROBIOTIC 10 Medical ORAL) [place] MULTIVITAMI Yes Take by [facility] vers N ORAL 5-27 mouth. ity of 17:32: [address] multivitami Yes Take by [facility] vers n with 5-27 mouth. ity of minerals 17:32: [place] (HAIR,SKIN 10 Medical AND NAILS Branch ORAL) Lactobacill 2020-0 Yes Take by [facility] vers us 5-27 mouth. ity of acidophilus 17:32: [place] (PROBIOTIC 10 Medical ORAL) [place] MULTIVITAMI 0 Yes Take by [facility] vers N ORAL 5-27 mouth. ity of 17:32: [address] multivitami 0 Yes Take by [facility] vers n with 5-27 mouth. ity of minerals 17:32: [place] (HAIR,SKIN 10 Medical AND NAILS Branch ORAL) Lactobacill 2020-0 Yes Take by [facility] us 5-27 mouth. ity of acidophilus 17:32: [place] (PROBIOTIC 10 Medical ORAL) Branch MULTIVITAMI 0 Yes Take by [facility] N ORAL 5-27 mouth. ity of 17:32: [place] [address] Medical Branch multivitami 2020-0 Yes Take by [facility] vers n with 5-27 mouth. ity of minerals 17:32: [place] (HAIR,SKIN 10 Medical AND NAILS Branch ORAL) Lactobacill 2020-0 Yes Take by Uni vers us 5-27 mouth. ity of acidophilus 17:32: [place] (PROBIOTIC 10 Medical ORAL) Branch MULTIVITAMI 202-0 Yes Take by Uni vers N ORAL 5-27 mouth. ity of 17:32: [place] 10 Medical Branch multivitami 2020-0 Yes Take by Uni vers n with 5-27 mouth. ity of minerals 17:32: [place] (HAIR,SKIN 10 Medical AND NAILS Branch ORAL) Diflucan 1-0 No 1mg 150 mg 5-18 tablet 00:00: [...] 1mg 600 mg 5-03 tablet 00:00: 00 gabapentin 2021-0 No 1mg 600 mg 5-03 tablet 00:00: 00 Dose 2021-0 No Unknown 5-03 00:00: 00 gabapentin 2021-0 No 1mg 600 mg 5-03 tablet 00:00: 00 Dose 2021-0 No Unknown 5-03 00:00: 00 glimepiride 2021-0 Yes 4mg Take 1 Univ ers 4 mg tablet 5-02 tablet by ity of 00:00: mouth [address] [place] [address] (surgical specialty center) Medical times Branch daily with meals. glimepiride 2021-0 Yes 4mg Take 1 Univ ers 4 mg tablet 5-02 tablet by ity of 00:00: [address] (surgical specialty center) Medical times Branch daily with meals. glimepiride 2021-0 Yes 4mg Take 1 Univ ers 4 mg tablet 5-02 tablet by ity of 00:00: mouth [address] [place] [address] (surgical specialty center) Medical times Branch daily with meals. glimepiride 2021-0 Yes 4mg Take 1 Univ ers 4 mg tablet 5-02 tablet by ity of 00:00: mouth [address] [place] [address] (surgical specialty center) Medical times Branch daily with meals. glimepiride 2021-0 Yes 4mg Take 1 Univ ers 4 mg tablet 5-02 tablet by ity of 00:00: mouth 2 [place] (surgical specialty center) Medical times Branch daily with meals. glimepiride 2021-0 Yes 4mg Take 1 Univ ers 4 mg tablet 5-02 tablet by ity of 00:00: mouth 2 (two) Medical times Branch daily with meals. glimepiride Yes 4mg Take 1 Univ ers 4 mg tablet 5-02 tablet by ity of 00:00: mouth 2 (two) Medical times Branch daily with meals. insulin Yes [id number] 35U inject 35 [facility] degludec 4-30 Units [...] ity of 134 mg 00:00: mouth [facility] 00 daily. Medical Branch metFORMIN Yes [id number] 1000mg Take 1 Univers 1,000 mg 4-30 tablet by ity of tablet 00:00: mouth (two) Medical times Branch daily with meals. blood sugar Yes [id number] Use daily Univers diagnostic 4-30 Dx E11.65 ity of (ONETOUCH 00:00: [place] VERIO TEST 00 Medical STRIPS) Branch strip lancets 0 Yes [id number] Use daily Univers (ONE TOUCH 4-30 Dx E11.65 ity of DELICA) 33 00:00: [place] gauge Misc 00 Medical Branch gabapentin 2020-0 Yes [id number] 600mg Take 1 [facility] 600 mg 4-30 tablet by ity of tablet 00:00: mouth 2 [place] (two) Medical times Branch daily. lisinopriL Yes [id number] 2.5mg Take 1 [facility] 2.5 mg 4-30 tablet by ity of tablet 00:00: mouth [place] 00 daily. Medical Branch insulin 0 Yes [id number] 35U inject 35 [facility] degludec 4-30 Units ity of (TRESIBA 00:00: [place] FLEXTOUCH 00 skin 2 Medical U-100) 100 (two) Branch unit/mL (3 times mL) InPn daily. atorvastati 0 Yes 40mg Take 1 Univ ers n 40 mg 4-30 tablet by ity of tablet 00:00: mouth at [place] 00 bedtime. Medical Branch fenofibrate Yes 134mg Take 1 Uni vers micronized 4-30 capsule by ity of 134 mg 00:00: mouth [place] capsule 00 daily. Medical Branch metFORMIN Yes [id number] 1000mg Take 1 [facility] 1,000 mg 4-30 tablet by ity of tablet 00:00: mouth 2 (two) Medical times Branch daily with meals. blood sugar Yes [id number] Use daily [facility] diagnostic 4-30 Dx E11.65 ity of (ONETOUCH 00:00: [place] VERIO TEST 00 Medical STRIPS) Branch strip lancets Yes [id number] Use daily Univers (ONE TOUCH 4-30 Dx E11.65 ity of DELICA) 33 00:00: [place] gauge Misc 00 Medical Branch gabapentin Yes [id number] 600mg Take 1 [facility] 600 mg 4-30 tablet by ity of tablet 00:00: mouth 2 (two) Medical times Branch daily. lisinopriL Yes [id number] 2.5mg Take 1 [facility] 2.5 mg 4-30 tablet by ity of tablet 00:00: mouth [place] 00 daily. Medical Branch insulin Yes [id number] 35U inject 35 [facility] degludec 4-30 Units ity of (TRESIBA 00:00: [place] FLEXT[place] 00 skin 2 Medical U-100) 100 (two) Branch unit/mL (3 times mL) InPn daily. atorvastati Yes 40mg Take 1 Univ ers n 40 mg 4-30 tablet by ity of tablet 00:00: mouth at [place] 00 bedtime. Medical Branch fenofibrate Yes 134mg Take 1 Uni vers micronized 4-30 capsule by ity of 134 mg 00:00: mouth [place] capsule 00 daily. Medical Branch metFORMIN Yes [id number] 1000mg Take 1 [facility] 1,000 mg 4-30 tablet by ity of tablet 00:00: mouth 2 (two) Medical times Branch daily with meals. blood sugar Yes [id number] Use daily [facility] diagnostic 4-30 Dx E11.65 ity of (ONETOUCH 00:00: [place] VERIO TEST 00 Medical STRIPS) Branch strip lancets 0 Yes [id number] Use daily Univers (ONE TOUCH 4-30 Dx E11.65 ity of DELICA) 33 00:00: [facility] Medical Branch gabapentin 2020-0 Yes [id number] 600mg Take 1 Univers 600 mg 4-30 tablet by ity of tablet 00:00: mouth 2 (two) Medical times Branch daily. lisinopriL Yes [id number] 2.5mg Take 1 Univers 2.5 mg 4-30 tablet by ity of tablet 00:00: mouth 00 daily. Medical Branch insulin Yes [id number] 35U inject 35 [facility] degludec 4-30 Units [...] capsule 00 daily. Medical Branch metFORMIN Yes [id number] 1000mg Take 1 Univers 1,000 mg 4-30 tablet by ity of tablet 00:00: mouth 2 (two) Medical times Branch daily with meals. blood sugar Yes [id number] Use daily [facility] diagnostic 4-30 Dx E11.65 ity of (ONETOUCH 00:00: [place] VERIO TEST 00 Medical STRIPS) Branch strip lancets 0 Yes [id number] Use daily Univers (ONE TOUCH 4-30 Dx E11.65 ity of DELICA) 33 00:00: [facility] Medical Branch gabapentin 2020-0 Yes [id number] 600mg Take 1 [facility] 600 mg 4-30 tablet by ity of tablet 00:00: mouth 2 (two) Medical times Branch daily. lisinopriL Yes [id number] 2.5mg Take 1 [facility] 2.5 mg 4-30 tablet by ity of tablet 00:00: mouth [place] 00 daily. Medical Branch insulin Yes [id number] 35U inject 35 [facility] degludec 4-30 Units [...] capsule 00 daily. Medical Branch metFORMIN Yes [id number] 1000mg Take 1 Univers 1,000 mg 4-30 tablet by ity of tablet 00:00: mouth 2 [place] 00 (two) Medical times Branch daily with meals. blood sugar Yes [id number] Use daily [facility] diagnostic 4-30 Dx E11.65 ity of (ONETOUCH 00:00: [place] VERIO TEST 00 Medical STRIPS) Branch strip lancets Yes [id number] Use daily Univers (ONE TOUCH 4-30 Dx E11.65 ity of DELICA) 33 00:00: [place] gauge Misc 00 Medical Branch gabapentin Yes [id number] 600mg Take 1 [facility] 600 mg 4-30 tablet by ity of tablet 00:00: mouth 2 [place] 00 (two) Medical times Branch daily. lisinopriL Yes [id number] 2.5mg Take 1 Univers 2.5 mg 4-30 tablet by ity of tablet 00:00: mouth [place] 00 daily. Medical Branch insulin Yes [id number] 35U inject 35 [facility] degludec 4-30 Units ity of (TRESIBA 00:00: [facility] skin 2 Medical U-100) [...] capsule 00 daily. Medical Branch metFORMIN Yes [id number] 1000mg Take 1 Univers 1,000 mg 4-30 tablet by ity of tablet 00:00: mouth 2 (two) Medical times Branch daily with meals. blood sugar 0 Yes [id number] Use daily [facility] diagnostic 4-30 Dx E11.65 ity of (ONETOUCH 00:00: [place] VERIO TEST 00 Medical STRIPS) Branch strip lancets Yes [id number] Use daily Univers (ONE TOUCH 4-30 Dx E11.65 ity of DELICA) 33 00:00: [place] [facility] 00 Medical Branch gabapentin Yes [id number] 600mg Take 1 Univers 600 mg 4-30 tablet by ity of tablet 00:00: mouth 2 [place] (two) Medical times Branch daily. lisinopriL Yes [id number] 2.5mg Take 1 Univers 2.5 mg 4-30 tablet by ity of tablet 00:00: mouth [place] 00 daily. Medical Branch insulin Yes [id number] 35U inject 35 [facility] degludec 4-30 Units [...] capsule 00 daily. Medical Branch metFORMIN Yes [id number] 1000mg Take 1 Univers 1,000 mg 4-30 tablet by ity of tablet 00:00: mouth 2 [place] (two) Medical times Branch daily with meals. blood sugar Yes [id number] Use daily [facility] diagnostic 4-30 Dx E11.65 ity of (ONETOUCH 00:00: [place] VERIO TEST 00 Medical STRIPS) Branch strip lancets 0 Yes [id number] Use daily Univers (ONE TOUCH 4-30 Dx E11.65 ity of DELICA) 33 00:00: [place] gauge Misc 00 Medical Branch gabapentin 2021-0 Yes [id number] 600mg Take 1 [facility] 600 mg 4-30 tablet by ity of tablet 00:00: mouth 2 [place] 00 (two) Medical times Branch daily. lisinopriL 2020-0 Yes [id number] 2.5mg Take 1 Univers 2.5 mg 4-30 tablet by ity of tablet 00:00: mouth [place] 00 daily. Medical Branch glimepiride 2020-0 No 1mg 4 mg tablet 4-10 00:00: 00 glimepiride 1-0 No 1mg 4 mg tablet 4-10 00:00: 00 glimepiride 1-0 No 1mg 4 mg tablet 4-10 00:00: 00 glimepiride 1-0 No 1mg 4 mg tablet 4-10 00:00: 00 glimepiride 1-0 No 1mg 4 mg tablet 4-10 00:00: 00 glimepiride 1-0 No 1mg 4 mg tablet 4-10 00:00: 00 glimepiride 1-0 No 1mg 4 mg tablet 4-10 00:00: 00 glimepiride 1-0 No 1mg 4 mg tablet 4-10 00:00: 00 glimepiride 1-0 No 1mg 4 mg tablet 4-10 00:00: 00 glimepiride 2021-0 No 1mg 4 mg tablet 4-10 00:00: 00 glimepiride 1-0 No 1mg 4 mg tablet 4-10 00:00: 00 ProAir HFA 2020-0 No 12mcg/a 90 3-19 ctuatio mcg/actuati 00:00: n on aerosol 00 inhaler ProAir HFA 2020-0 No 12mcg/a 90 3-19 ctuatio mcg/actuati 00:00: n on aerosol 00 inhaler ProAir HFA 2020-0 No 12mcg/a 90 3-19 ctuatio mcg/actuati 00:00: n on aerosol 00 inhaler ProAir HFA 2020-0 No 12mcg/a 90 3-19 ctuatio mcg/actuati 00:00: n on aerosol 00 inhaler ProAir HFA 2020-0 No 12mcg/a 90 3-19 ctuatio mcg/actuati 00:00: n on aerosol 00 inhaler ProAir HFA 2020-0 No 12mcg/a 90 3-19 ctuatio mcg/actuati 00:00: n on aerosol 00 inhaler ProAir HFA 2020-0 No 12mcg/a 90 3-19 ctuatio mcg/actuati 00:00: n on aerosol 00 inhaler ProAir HFA 2020-0 No 12mcg/a 90 3-19 ctuatio mcg/actuati 00:00: n on aerosol 00 inhaler ProAir HFA 2020-0 No 12mcg/a 90 3-19 ctuatio mcg/actuati 00:00: n on aerosol 00 inhaler Dose 2020-0 No Unknown 3-19 00:00: 00 Dose 2020-0 No Unknown 3-19 00:00: 00 Victoza 2020-0 No (18 3-Christofer 0.6 3-18 mg/3 mg/0.1 mL 00:00: mL) (18 mg/3 00 mL) subcutaneou s pen injector Victoza 0 No (18 3-Christofer 0.6 3-18 mg/3 mg/0.1 mL 00:00: mL) (18 mg/3 00 mL) subcutaneou s pen injector Tresiba 0 No 30(3 FlexTouch 3-18 mL) U-100 00:00: insulin 100 00 unit/mL (3 mL) subcutaneou s pen hydrochloro 2020-0 No 1mg thiazide 25 3-18 mg tablet 00:00: 00 lisinopril 2020-0 No 1mg 5 mg tablet 3-18 00:00: 00 glimepiride 2020-0 No 1mg 2 mg tablet 3-18 00:00: 00 metformin 2020-0 No 1mg 1,000 mg 3-18 tablet 00:00: [...] 25 3-18 mg tablet 00:00: 00 lisinopril 2020-0 No 1mg 5 mg tablet 3-18 00:00: 00 glimepiride 2020-0 No 1mg 2 mg tablet 3-18 00:00: 00 metformin 2020-0 No 1mg 1,000 mg 3-18 tablet 00:00: [...] mg/3 00 mL) subcutaneou s pen injector Dose 2020-0 No Unknown 3-18 00:00: 00 Tresiba 1-0 No 30(3 FlexTouch 3-18 mL) U-100 00:00: insulin 100 00 unit/mL (3 mL) subcutaneou s pen hydrochloro 1-0 No 1mg thiazide 25 3-18 mg tablet 00:00: 00 lisinopril 1-0 No 1mg 5 mg tablet 3-18 00:00: 00 glimepiride 1-0 No 1mg 2 mg tablet 3-18 00:00: 00 metformin 2021-0 No 1mg 1,000 mg 3-18 tablet 00:00: 00 Victoza 2021-0 No (18 3-Christofer 0.6 3-18 mg/3 mg/0.1 mL 00:00: mL) (18 mg/3 00 mL) subcutaneou s pen injector Dose 1-0 No Unknown 3-18 00:00: 00 Tresiba 1-0 No 30(3 FlexTouch 3-18 mL) [...] 100 mg 1-28 capsule 00:00: 00 Victoza 2019- No (18 3-Christofer [...] unit/mL (3 mL) subcutaneou s pen hydrochloro 2019- No 1mg thiazide 25 2-23 mg tablet 00:00: 00 glimepiride 2019- No 1mg 2 mg tablet 2-23 00:00: 00 metformin 2019- No 1mg 1,000 mg 2-23 tablet 00:00: 00 atorvastati 2019- No 1mg n 40 mg 2-23 tablet 00:00: 00 gabapentin 2019- No 1mg 600 mg 2-23 tablet 00:00: 00 Victoza 2019- No (18 3-Christofer 0.6 2-23 mg/3 mg/0.1 mL 00:00: mL) (18 mg/3 00 mL) subcutaneou s pen injector Tresiba 2019- No 30(3 FlexTouch 2-23 mL) U-100 00:00: insulin 100 00 unit/mL (3 mL) subcutaneou s pen hydrochloro 2019- No 1mg thiazide 25 2-23 mg tablet 00:00: 00 glimepiride 2019- No 1mg 2 mg tablet 2-23 00:00: 00 metformin 2019- No 1mg 1,000 mg 2-23 tablet 00:00: 00 atorvastati 2019- No 1mg n 40 mg 2-23 tablet 00:00: 00 gabapentin 2019- No 1mg 600 mg 2-23 tablet 00:00: 00 Victoza 2019- No (18 3-Christofer 0.6 2-23 mg/3 mg/0.1 mL 00:00: mL) (18 mg/3 00 mL) subcutaneou s pen injector Tresiba 2019- No 30(3 FlexTouch 2-23 mL) U-100 00:00: insulin 100 00 unit/mL (3 mL) subcutaneou s pen hydrochloro 2019- No 1mg thiazide 25 2-23 mg tablet 00:00: 00 glimepiride 2019- No 1mg 2 mg tablet 2-23 00:00: [...] unit/mL (3 mL) subcutaneou s pen hydrochloro 2019- No 1mg thiazide 25 2-23 mg tablet [...] 1 mg tablet 2-04 00:00: 00 metformin 2019-07 No 1mg 1,000 mg 2-04 tablet 00:00: 00 gabapentin 2019-07 No 1mg 600 mg 2-04 tablet 00:00: 00 lisinopril 2019-07 No 1mg 5 mg tablet 2-04 00:00: 00 glimepiride 2019-07 No 1mg 1 mg tablet 2-04 00:00: 00 metformin 2019- No 1mg 1,000 mg 2-04 tablet 00:00: 00 gabapentin 2019-07 No 1mg 600 mg 2-04 tablet 00:00: 00 lisinopril 2019-07 No 1mg 5 mg tablet 2-04 00:00: 00 glimepiride 2019-07 No 1mg 1 mg tablet 2-04 00:00: 00 metformin 2019-07 No 1mg 1,000 mg 2-04 tablet 00:00: 00 gabapentin 2019- No 1mg 600 mg 2-04 tablet 00:00: 00 lisinopril 2019-07 No 1mg 5 mg tablet 2-04 00:00: 00 glimepiride 2019-07 No 1mg 1 mg tablet 2-04 00:00: 00 metformin 2019- No 1mg 1,000 mg 2-04 tablet 00:00: 00 gabapentin 2019-07 No 1mg 600 mg 2-04 tablet 00:00: 00 lisinopril 2019-07 No 1mg 5 mg tablet 2-04 00:00: 00 glimepiride 2019- No 1mg 1 mg tablet 2-04 00:00: 00 metformin 2020-1 No 1mg 1,000 mg 2-04 tablet 00:00: 00 gabapentin 2020-1 No 1mg 600 mg 2-04 tablet 00:00: 00 lisinopril 2020- No 1mg 5 mg tablet 2-04 00:00: 00 glimepiride 2019- No 1mg 1 mg tablet 2-04 00:00: 00 metformin 2020- No 1mg 1,000 mg 2-04 tablet 00:00: [...] 5 mg tablet 2-04 00:00: 00 glimepiride 2020-1 No 1mg 1 mg tablet 2-04 00:00: 00 metformin 2020-1 No 1mg 1,000 mg 2-04 tablet 00:00: 00 gabapentin 2020-1 No 1mg 600 mg 2-04 tablet 00:00: 00 Bactrim DS 2020-1 No 1mg 800 mg-160 1-05 mg tablet [...] 5 mg tablet 0-13 00:00: 00 metformin 2019- No 1mg 1,000 mg 0-13 tablet 00:00: 00 glimepiride 2019- No 1mg 1 mg tablet 0-13 00:00: 00 atorvastati 2019- No 1mg n 40 mg 0-13 tablet 00:00: 00 gabapentin 2019- No 1mg 600 mg 0-13 tablet 00:00: 00 hydrochloro 2019- No 1mg thiazide 25 0-13 mg tablet 00:00: 00 lisinopril 2019-07 No 1mg 5 mg tablet 0-13 00:00: 00 metformin 2019- No 1mg 1,000 mg 0-13 tablet 00:00: 00 glimepiride 2019- No 1mg 1 mg tablet 0-13 00:00: 00 atorvastati 2019- No 1mg n 40 mg 0-13 tablet 00:00: 00 gabapentin 2019- No 1mg 600 mg 0-13 tablet 00:00: 00 hydrochloro 2019-07 No 1mg thiazide 25 0-13 mg tablet 00:00: 00 lisinopril 2019-07 No 1mg 5 mg tablet 0-13 00:00: 00 metformin 2019- No 1mg 1,000 mg 0-13 tablet 00:00: 00 glimepiride 2019-07 No 1mg 1 mg tablet 0-13 00:00: 00 atorvastati 2019- No 1mg n 40 mg 0-13 tablet 00:00: 00 gabapentin 2019- No 1mg 600 mg 0-13 tablet 00:00: 00 hydrochloro 2019-07 No 1mg thiazide 25 0-13 mg tablet 00:00: 00 lisinopril 2019- No 1mg 5 mg tablet 0-13 00:00: 00 metformin 2019- No 1mg 1,000 mg 0-13 tablet 00:00: 00 glimepiride 2019- No 1mg 1 mg tablet 0-13 00:00: 00 atorvastati 2019- No 1mg n 40 mg 0-13 tablet 00:00: 00 gabapentin 2019- No 1mg 600 mg 0-13 tablet 00:00: 00 hydrochloro 2019- No 1mg thiazide 25 0-13 mg tablet 00:00: 00 lisinopril 2019- No 1mg 5 mg tablet 0-13 00:00: 00 metformin 2019- No 1mg 1,000 mg 0-13 tablet 00:00: 00 glimepiride 2019- No 1mg 1 mg tablet 0-13 00:00: 00 atorvastati 2019- No 1mg n 40 mg 0-13 tablet 00:00: 00 gabapentin 2019- No 1mg 600 mg 0-13 tablet 00:00: 00 hydrochloro 2019- No 1mg thiazide 25 0-13 mg tablet 00:00: 00 lisinopril 2019- No 1mg 5 mg tablet 0-13 00:00: 00 metformin 2019- No 1mg 1,000 mg 0-13 tablet 00:00: 00 glimepiride 2019-07 No 1mg 1 mg tablet 0-13 00:00: 00 atorvastati 2019- No 1mg n 40 mg 0-13 tablet 00:00: 00 gabapentin 2019- No 1mg 600 mg 0-13 tablet 00:00: 00 hydrochloro 2019-07 No 1mg thiazide 25 0-13 mg tablet 00:00: 00 lisinopril 2019-07 No 1mg 5 mg tablet 0-13 00:00: 00 metformin 2019- No 1mg 1,000 mg 0-13 tablet 00:00: 00 glimepiride 2019-07 No 1mg 1 mg tablet 0-13 00:00: 00 atorvastati 2019- No 1mg n 40 mg 0-13 tablet 00:00: 00 gabapentin 2019- No 1mg 600 mg 0-13 tablet 00:00: 00 hydrochloro 2019-07 No 1mg thiazide 25 0-13 mg tablet 00:00: 00 lisinopril 2019- No 1mg 5 mg tablet 0-13 00:00: 00 metformin 2019- No 1mg 1,000 mg 0-13 tablet 00:00: 00 glimepiride 2019- No 1mg 1 mg tablet 0-13 00:00: 00 atorvastati 2019- No 1mg n 40 mg 0-13 tablet 00:00: 00 gabapentin 2019- No 1mg 600 mg 0-13 tablet 00:00: 00 hydrochloro 2019-1 No 1mg thiazide 25 0-13 mg tablet 00:00: 00 lisinopril 2019-1 No 1mg 5 mg tablet 0-13 00:00: 00 metformin 2020-1 No 1mg 1,000 mg 0-13 tablet 00:00: 00 glimepiride 2019-1 No 1mg 1 mg tablet 0-13 00:00: 00 atorvastati 2020-1 No 1mg n 40 mg 0-13 tablet 00:00: 00 gabapentin 2019-1 No 1mg 600 mg 0-13 tablet 00:00: 00 hydrochloro 2019-1 No 1mg thiazide 25 0-13 mg tablet 00:00: 00 lisinopril 2019-1 No 1mg 5 mg tablet 0-13 00:00: 00 metformin 2019-1 No 1mg 1,000 mg 0-13 tablet 00:00: 00 glimepiride 2019-1 No 1mg 1 mg tablet 0-13 00:00: 00 atorvastati 2019-1 No 1mg n 40 mg 0-13 tablet 00:00: 00 gabapentin 2019-1 No 1mg 600 mg 0-13 tablet 00:00: 00 hydrochloro 2019-1 No 1mg thiazide 25 0-13 mg tablet 00:00: 00 lisinopril 2019-1 No 1mg 5 mg tablet 0-13 00:00: [...] Xenical 120 2020-0 No 1mg mg capsule 8 00:00: 00 hydrochloro 2020-0 No 1mg [...] 1mg 1,000 mg 8-31 tablet 00:00: 00 lisinopril 2020-0 No 1mg [...] 1mg 600 mg 8-31 tablet 00:00: 00 glimepiride 2020-0 [...] atorvastati 2020-0 No 1mg n 40 mg 8- tablet 00:00: 00 gabapentin 2020-0 No 1mg 600 mg 8- tablet 00:00: 00 gabapentin 2020-0 No 1mg [...] 1mg 1,000 mg 8- tablet 00:00: 00 glimepiride 2020-0 No 1mg 1 mg tablet 03-10 00:00: 00 metformin 2020-0 No 1mg 1,000 mg 8-31 tablet 00:00: 00 glimepiride 2020-0 No 1mg 1 mg tablet 03-10 00:00: 00 atorvastati 2020-0 No 1mg n 40 mg 8-31 tablet 00:00: 00 atorvastati 2020-0 No 1mg n 40 mg 8- tablet 00:00: 00 gabapentin 2020-0 No 1mg 600 mg 8- tablet 00:00: 00 gabapentin 2020-0 No 1mg 600 mg 8- tablet 00:00: 00 Xenical 120 2020-0 No [...] atorvastati 2020-0 No 1mg n 40 mg 8- tablet 00:00: 00 atorvastati 2020-0 No 1mg n 40 mg 8- tablet 00:00: 00 gabapentin 2020-0 No 1mg 600 mg 8- tablet 00:00: 00 gabapentin 2020-0 No 1mg 600 mg 8- tablet 00:00: 00 Xenical 120 2020-0 No [...] 1mg 1,000 mg 8- tablet 00:00: 00 glimepiride 2020-0 No 1mg 1 mg tablet 03-10 00:00: 00 metformin 2020-0 No 1mg 1,000 mg 8-31 tablet 00:00: 00 glimepiride 2020-0 No 1mg 1 mg tablet 03-10 00:00: 00 atorvastati 2020-0 No 1mg n 40 mg 8- tablet 00:00: 00 atorvastati 2020-0 No 1mg n 40 mg 8- tablet 00:00: 00 gabapentin 2020-0 No 1mg 600 mg 8- tablet 00:00: 00 gabapentin 2020-0 No 1mg 600 mg 8- tablet 00:00: 00 Xenical 120 2020-0 No [...] 1mg 600 mg 8- tablet 00:00: 00 gabapentin 2020-0 No 1mg 600 mg 8- tablet 00:00: 00 Xenical 120 2020-0 No [...] glimepiride 2020-0 No 1mg 1 mg tablet 18 00:00: 00 metformin 2020-0 No 1mg 1,000 [...] lisinopril 2020-0 No 1mg 5 mg tablet 610 00:00: 00 metformin 2020-0 No 1mg 1,000 mg 6-10 tablet 00:00: 00 glimepiride 2020-0 No 1mg 1 mg tablet 610 00:00: 00 metformin 2020-0 No 1mg 1,000 mg 6-10 tablet 00:00: 00 glimepiride 2020-0 No 1mg 1 mg tablet 610 00:00: 00 atorvastati 2020-0 No 1mg n [...] lisinopril 2020-0 No 1mg 5 mg tablet 610 00:00: 00 metformin 2020-0 No 1mg 1,000 mg 6-10 tablet 00:00: 00 glimepiride 2020-0 No 1mg 1 mg tablet 6-10 00:00: 00 metformin 2020-0 No 1mg 1,000 mg 6-10 tablet 00:00: 00 glimepiride 2020-0 No 1mg 1 mg tablet 610 00:00: 00 atorvastati 2020-0 No 1mg n [...] Take by Met hodi SUNNY/FA/GUAR 5-14 mouth. [facility] 11:53: Hospita (ONE-A-DAY 29 l WOMEN'S ACTIVE ORAL) MV,CA,MIN/I 2020-0 Yes Take by Met hodi SUNNY/FA/GUAR 5-14 mouth. [facility] 11:53: Hospita (ONE-A-DAY 29 l WOMEN'S ACTIVE ORAL) MV,CA,MIN/I 2020-0 Yes Take by Met hodi SUNNY/FA/GUAR 5-14 mouth. [facility] 11:53: Hospita (ONE-A-DAY 29 l WOMEN'S ACTIVE ORAL) MV,CA,MIN/I 2020-0 Yes Take by Met hodi SUNNY/FA/GUAR 5-14 mouth. [facility] 11:53: Hospita (ONE-A-DAY 29 l WOMEN'S ACTIVE ORAL) MV,CA,MIN/I 2020-0 Yes Take by Met hodi SUNNY/FA/GUAR 5-14 mouth. [facility] 11:53: Hospita (ONE-A-DAY 29 l WOMEN'S ACTIVE ORAL) MV,CA,MIN/I 2020-0 Yes Take by Met hodi SUNNY/FA/GUAR 5-14 mouth. [facility] 11:53: Hospita (ONE-A-DAY 29 l WOMEN'S ACTIVE ORAL) MV,CA,MIN/I 2020-0 Yes Take by Met hodi SUNNY/FA/GUAR 5-14 mouth. [facility] 11:53: Hospita (ONE-A-DAY 29 l WOMEN'S ACTIVE ORAL) MV,CA,MIN/I 2020-0 Yes Take by Met hodi SUNNY/FA/GUAR 5-14 mouth. [facility] 11:53: Hospita (ONE-A-DAY 29 l WOMEN'S ACTIVE ORAL) MV,CA,MIN/I 2020-0 Yes Take by Met hodi SUNNY/FA/GUAR 5-14 mouth. [facility] 11:53: Hospita (ONE-A-DAY 29 l WOMEN'S ACTIVE ORAL) MV,CA,MIN/I 2020-0 Yes Take by Met hodi SUNNY/FA/GUAR 5-14 mouth. [facility] 11:53: Hospita (ONE-A-DAY 29 l WOMEN'S ACTIVE ORAL) MV,CA,MIN/I 2020-0 Yes Take by Met hodi SUNNY/FA/GUAR 5-14 mouth. [facility] 11:53: Hospita (ONE-A-DAY 29 l WOMEN'S ACTIVE ORAL) MV,CA,MIN/I 2020-0 Yes Take by Met hodi SUNNY/FA/GUAR 5-14 mouth. [facility] 11:53: Hospita (ONE-A-DAY 29 l WOMEN'S ACTIVE ORAL) lisinopril 2020-0 No 1mg 5 mg tablet 512 00:00: 00 lisinopril 2020-0 No 1mg 5 mg tablet 512 00:00: 00 lisinopril 2020-0 No 1mg 5 mg tablet 512 00:00: 00 lisinopril 2020-0 No 1mg 5 mg tablet 12 00:00: 00 lisinopril 2020-0 No 1mg 5 mg tablet 12 00:00: 00 lisinopril 2020-0 No 1mg 5 [...] tablet 5-12 00:00: 00 nystatin-tr 2020-0 Yes [id number] Q.25D Apply [facility] iamcinolone 4-[address] (MYCOLOG 00:00: 4 (four) Hospi ta II) 00 times a l 100,000-0.1 day as unit/g-% needed cream (vaginal itching or infection) . To outer vagina nystatin-tr 2020-0 Yes [id number] Q.25D Apply [facility] iamcinolone 4-[address] (MYCOLOG 00:00: 4 (four) Hospi ta II) 00 times a l 100,000-0.1 day as unit/g-% needed cream (vaginal itching or infection) . To outer vagina nystatin-tr 2020-0 Yes [id number] Q.25D Apply [facility] iamcinolone 4-[address] (MYCOLOG 00:00: 4 (four) Hospi ta II) 00 times a l 100,000-0.1 day as unit/g-% needed cream (vaginal itching or infection) . To outer vagina nystatin-tr 2020-0 Yes [id number] Q.25D Apply [facility] iamcinolone 4-[address] (MYCOLOG 00:00: 4 (four) Hospi ta II) 00 times a l 100,000-0.1 day as unit/g-% needed cream (vaginal itching or infection) . To outer vagina nystatin-tr 2020-0 Yes [id number] Q.25D Apply [facility] iamcinolone 4-[address] (MYCOLOG 00:00: 4 (four) Hospi ta II) 00 times a l 100,000-0.1 day as unit/g-% needed cream (vaginal itching or infection) . To outer vagina nystatin-tr 2020-0 Yes [id number] Q.25D Apply [facility] iamcinolone 4-[address] (MYCOLOG 00:00: 4 (four) Hospi ta II) 00 times a l 100,000-0.1 day as unit/g-% needed cream (vaginal itching or infection) . To outer vagina nystatin-tr 2020-0 Yes [id number] Q.25D Apply [facility] iamcinolone 4-[address] (MYCOLOG 00:00: 4 (four) Hospi ta II) 00 times a l 100,000-0.1 day as unit/g-% needed cream (vaginal itching or infection) . To outer vagina nystatin-tr 2020-0 Yes [id number] Q.25D Apply [facility] iamcinolone 4-[address] (MYCOLOG 00:00: 4 (four) Hospi ta II) 00 times a l 100,000-0.1 day as unit/g-% needed cream (vaginal itching or infection) . To outer vagina nystatin-tr 2020-0 Yes [id number] Q.25D Apply [facility] iamcinolone 4-[address] (MYCOLOG 00:00: 4 (four) Hospi ta II) 00 times a l 100,000-0.1 day as unit/g-% needed cream (vaginal itching or infection) . To outer vagina nystatin-tr 2020-0 Yes [id number] Q.25D Apply [facility] iamcinolone 4-[address] (MYCOLOG 00:00: 4 (four) Hospi ta II) 00 times a l 100,000-0.1 day as unit/g-% needed cream (vaginal itching or infection) . To outer vagina nystatin-tr 2020-0 Yes [id number] Q.25D Apply [facility] iamcinolone 4-[address] (MYCOLOG 00:00: 4 (four) Hospi ta II) 00 times a l 100,000-0.1 day as unit/g-% needed cream (vaginal itching or infection) . To outer vagina nystatin-tr 2020-0 Yes [id number] Q.25D Apply [facility] iamcinolone 4-[address] [...] 0.5 mg (2 00:00: mg/1.5 mL) 00 subcutane s pen injector Ozempic 2020-0 No mg(2 0.25 mg or 3-30 mg/1.5 0.5 mg (2 00:00: mL) [facility]5 mL[facility]-0 No (5)/125 0.25 mg or 3-30 -30(10) 0.5 mg (2 00:00: mg/1.5 mL) 00 subcutane s pen injector Ozempic 2020-0 No (5)/125 0.25 mg or 3-30 -30(10) 0.5 mg (2 00:00: mg/1.5 mL) 00 subcutane s pen injector Ozempic 2020-0 No (5)/125 0.25 mg or 3-30 -30(10) 0.5 mg (2 00:00: mg/1.5 mL) 00 [facility] 2020-0 No (5)/125 0.25 mg or 3-30 -30(10) 0.5 mg (2 00:00: mg/1.5 mL) 00 subcutane s pen injector Ozempic 2020-0 No (5)/125 0.25 mg or 3-30 -30(10) 0.5 mg (2 00:00: mg/1.5 mL) 00 subcutane s pen injector Ozempic 2020-0 No (5)/125 0.25 mg or 3-30 -30(10) 0.5 mg (2 00:00: mg/1.5 mL) 00 subcutane s pen injector Ozempic 2020-0 No (5)/125 [...] subcutaneou s pen injector HEParin 2020-0 Yes [id number] Q7D Meth ally (porcine) 3-24 st injection 17:00: [facility] 20,000 00 l Units HEParin 2020-0 Yes [id number] Q7D Meth ally (porcine) 3-24 st injection 17:00: [facility]osp[facility] 20,000 00 l Units HEParin 2020-0 Yes [id number] Q7D Meth ally (porcine) 3-24 st injection 17:00: Hospita 20,000 00 l Units HEParin 2020-0 Yes [id number] Q7D Meth ally (porcine) 3-24 st injection 17:00: [facility]ospita 20,000 00 l Units HEParin 2020-0 Yes [id number] Q7D Meth ally (porcine) 3-24 st injection 17:00: [facility]ospita 20,000 00 l Units HEParin 2020-0 Yes [id number] Q7D Meth ally (porcine) 3-24 st injection 17:00: [facility]ospita 20,000 00 l Units HEParin 2020-0 Yes [id number] Q7D Meth ally (porcine) 3-24 st injection 17:00: Hospita 20,000 00 l Units HEParin 2020-0 Yes [id number] Q7D Meth ally (porcine) 3-24 st injection 17:00: Hospita 20,000 00 l Units HEParin 2020-0 Yes [id number] Q7D Meth ally (porcine) 3-24 st injection 17:00: Hospita 20,000 00 l Units HEParin 2020-0 Yes [id number] Q7D Meth ally (porcine) 3-24 st injection 17:00: [facility]ospita 20,000 00 l Units HEParin 2020-0 Yes [id number] Q7D Meth ally (porcine) 3-24 st injection 17:00: [facility]osp[facility] 20,000 00 l Units HEParin 2020-0 Yes [id number] Q7D Meth ally (porcine) 3-24 st injection 17:00: [facility]osp[facility] 20,000 00 l Units conjugated 2020-0 Yes [id number] Apply 0.5 [facility] estrogens 3-[address] (Premarin) 00:00: vaginally [facility] 0.625 00 either l mg/gram internally vaginal (applicato cream r) or with finger to outer vagina twice weekly at night conjugated 2020-0 Yes [id number] Apply 0.5 [facility] estrogens 3-[address] (Premarin) 00:00: vaginally [facility] 0.625 00 either l mg/gram internally vaginal (applicato cream r) or with finger to outer vagina twice weekly at night conjugated 2020-0 Yes [id number] Apply 0.5 [facility] estrogens 3-[address] (Premarin) 00:00: vaginally [facility] 0.625 00 either l mg/gram internally vaginal (applicato cream r) or with finger to outer vagina twice weekly at night conjugated 2020-0 Yes [id number] Apply 0.5 [facility] estrogens 3-[address] (Premarin) 00:00: vaginally [facility] 0.625 00 either l mg/gram internally vaginal (applicato cream r) or with finger to outer vagina twice weekly at night conjugated 2020-0 Yes [id number] Apply 0.5 [facility] estrogens 3-[address] (Premarin) 00:00: vaginally [facility] 0.625 00 either l mg/gram internally vaginal (applicato cream r) or with finger to outer vagina twice weekly at night conjugated 2020-0 Yes [id number] Apply 0.5 [facility] estrogens 3-[address] (Premarin) 00:00: vaginally [facility] 0.625 00 either l mg/gram internally vaginal (applicato cream r) or with finger to outer vagina twice weekly at night conjugated 2020-0 Yes [id number] Apply 0.5 [facility] estrogens 3-[address] (Premarin) 00:00: vaginally [facility] 0.625 00 either l mg/gram internally vaginal (applicato cream r) or with finger to outer vagina twice weekly at night conjugated 2020-0 Yes [id number] Apply 0.5 [facility] estrogens 3-[address] (Premarin) 00:00: vaginally [facility] 0.625 00 either l mg/gram internally vaginal (applicato cream r) or with finger to outer vagina twice weekly at night conjugated 2020-0 Yes [id number] Apply 0.5 [facility] estrogens 3-[address] (Premarin) 00:00: vaginally [facility] 0.625 00 either l mg/gram internally vaginal (applicato cream r) or with finger to outer vagina twice weekly at night conjugated 2020-0 Yes [id number] Apply 0.5 [facility] estrogens 3-[address] (Premarin) 00:00: vaginally [facility] 0.625 00 either l mg/gram internally vaginal (applicato cream r) or with finger to outer vagina twice weekly at night conjugated 2020-0 Yes [id number] Apply 0.5 [facility] estrogens 3-[address] (Premarin) 00:00: vaginally [facility] 0.625 00 either l mg/gram internally vaginal (applicato cream r) or with finger to outer vagina twice weekly at night conjugated 2020-0 Yes [id number] Apply 0.5 [facility] estrogens 3-[address] (Premarin) 00:00: vaginally [facility] 0.625 00 either l mg/gram internally vaginal (applicato cream r) or with finger to outer vagina twice weekly at night amb custom 2020-0 Yes [facility] 3-[address] 00:00: cream: 6% Hospita 00 gabapentin l , 2% Lidocaine, 2 % baclofen in water washable based. Apply 0.5 gram to outer vagina once or twice daily. amb custom 2020-0 Yes [facility] compound 3-[address] 00:00: cream: 6% [facility]ospita 00 gabapentin l , 2% Lidocaine, 2 % baclofen in water washable based. Apply 0.5 gram to outer vagina once or twice daily. amb custom 2020-0 Yes [facility] compound 3-[address] 00:00: cream: 6% [facility]ospita 00 gabapentin l , 2% Lidocaine, 2 % baclofen in water washable based. Apply 0.5 gram to outer vagina once or twice daily. amb custom 2020-0 Yes [facility]ed Me aretha[facility] compound 3- vaginal st 00:00: cream: 6% [facility]ospita 00 gabapentin l , 2% Lidocaine, 2 % baclofen in water washable based. Apply 0.5 gram to outer vagina once or twice daily. amb custom 2020-0 Yes Compouned Nv arethaodi compound 3- vaginal st 00:00: cream: 6% [facility]ospita 00 gabapentin l , 2% Lidocaine, 2 % baclofen in water washable based. Apply 0.5 gram to outer vagina once or twice daily. amb custom 2020-0 Yes Compouned Nv arethaodi compound 3- vaginal st 00:00: cream: 6% Hospita 00 gabapentin l , 2% Lidocaine, 2 % baclofen in water washable based. Apply 0.5 gram to outer vagina once or twice daily. amb custom 2020-0 Yes Compouned Nv arethaodi compound [address] 00:00: cream: 6% [facility]ospita 00 gabapentin l , 2% Lidocaine, 2 % baclofen in water washable based. Apply 0.5 gram to outer vagina once or twice daily. amb custom 2020-0 Yes Compouned Nv arethaodi compound 09-[address] 00:00: cream: 6% [facility]ospita 00 gabapentin l , 2% Lidocaine, 2 % baclofen in water washable based. Apply 0.5 gram to outer vagina once or twice daily. amb custom 2020-0 Yes Compouned Nv arethaodi compound 09-[address] 00:00: cream: 6% Hospita 00 gabapentin l , 2% Lidocaine, 2 % baclofen in water washable based. Apply 0.5 gram to outer vagina once or twice daily. amb custom 2020-0 Yes Compouned Nv arethaodi compound 09-[address] 00:00: cream: 6% Hospita 00 gabapentin l , 2% Lidocaine, 2 % baclofen in water washable based. Apply 0.5 gram to outer vagina once or twice daily. amb custom 2020-0 Yes Compouned Nv arethaodi compound 3- vaginal st 00:00: cream: 6% Hospita 00 gabapentin l , 2% Lidocaine, 2 % baclofen in water washable based. Apply 0.5 gram to outer vagina once or twice daily. amb custom 2020-0 Yes Compouned Nv arethaodi compound [address] 00:00: cream: 6% Hospita 00 gabapentin l , 2% Lidocaine, 2 % baclofen in water washable based. Apply 0.5 gram to outer vagina once or twice daily. FREESTYLE 2020-0 Yes [id number] 1{each} 1 Each [facility] 14 3-03 every 14 ity of DAY SENSOR 00:00: (fourteen[place] [facility] days. [facility] FREESTYLE 2020-0 Yes [id number] 1{each} 1 Each [facility] BRENDA 14 3-03 daily. ity of DAY READER 00:00: [facility] 00 Medical Branch FREESTYLE 2020-0 Yes [id number] 1{each} 1 Each [facility] BRENDA 14 3-03 every 14 ity of DAY SENSOR 00:00: (fourteen) [place] [facility] days. [facility] FREESTYLE 2020-0 Yes [id number] 1{each} 1 Each [facility] BRENDA 14 3-03 daily. ity of DAY READER 00:00: [facility] 00 Medical Branch FREESTYLE 2020-0 Yes [id number] 1{each} 1 Each [facility] BRENDA 14 3-03 every 14 ity of DAY SENSOR 00:00: (fourteen) [place] [facility] days. [facility] FREESTYLE 2020-0 Yes [id number] 1{each} 1 Each [facility] BRENDA 14 3-03 daily. ity of DAY READER 00:00: [facility] 00 Medical Branch FREESTYLE 2020-0 Yes [id number] 1{each} 1 Each [facility] BRENDA 14 3-03 every 14 ity of DAY SENSOR 00:00: (fourteen) [place] [facility] days. [facility] FREESTYLE 2020-0 Yes [id number] 1{each} 1 Each [facility] BRENDA 14 3-03 daily. ity of DAY READER 00:00: [facility] 00 Medical Branch FREESTYLE 2020-0 Yes [id number] 1{each} 1 Each [facility] BRENDA 14 3-03 every 14 ity of DAY SENSOR 00:00: (fourteen) [place] [facility] 00 days. [facility] FREESTYLE 2020-0 Yes [id number] 1{each} 1 Each [facility] BRENDA 14 3-03 daily. ity of DAY READER 00:00: [facility] 00 Medical Branch FREESTYLE 2020-0 Yes [id number] 1{each} 1 Each [facility] BRENDA 14 3-03 every 14 ity of DAY SENSOR 00:00: (fourteen) [place] [facility] days. [facility] FREESTYLE 2020-0 Yes [id number] 1{each} 1 Each [facility] BRENDA 14 3-03 daily. ity of DAY READER 00:00: [facility] 00 Medical Branch FREESTYLE 2020-0 Yes [id number] 1{each} 1 Each [facility] BRENDA 14 3-03 every 14 ity of DAY SENSOR 00:00: (fourteen) [place] [facility] 00 days. [facility] FREESTYLE 2020-0 Yes [id number] 1{each} 1 Each [facility] BRENDA 14 3-03 daily. ity of DAY READER 00:00: [facility] 00 Medical Branch Ozempic 2020-0 No (5)/125 0.25 [...] mg 1-16 tablet 00:00: 00 Flagyl 500 1 No 1mg mg tablet 2-30 00:00: 00 Flagyl 500 2018-07 No 1mg mg tablet 2-30 00:00: 00 Flagyl 500 2018-07 No 1mg mg tablet 2-30 00:00: 00 Flagyl 500 2018-07 No 1mg mg tablet 2-30 00:00: 00 Flagyl 500 2018-07 No 1mg mg tablet 2-30 00:00: 00 Flagyl 500 2018-07 No 1mg mg tablet 2-30 00:00: 00 Flagyl 500 2018-07 No 1mg mg tablet 2-30 00:00: 00 Flagyl 500 2018-07 No 1mg mg tablet 2-30 00:00: 00 Flagyl 500 2018-07 No 1mg mg tablet 2-30 00:00: 00 Flagyl 500 2018-07 No 1mg mg tablet 2-30 00:00: 00 Flagyl 500 2018-07 No 1mg mg tablet 2-30 00:00: 00 traMADol 2018-07 Yes [id number] 50mg Take 1 [facility] vers (ULTRAM) 50 2-28 tablet by ity of mg tablet 00:00: mouth [place] 00 every 6 Medical (six) Branch hours as needed for Pain (scale 7-10). ondansetron 2018-07 Yes [id number] 4mg Take 1 [facility] (ZOFRAN) 4 2-28 tablet by ity of mg tablet 00:00: mouth [place] 00 every 8 Medical (eight) Branch hours as needed for Nausea and Vomiting (N/V). ondansetron 2018-07 Yes [id number] 4mg Take 1 [facility] (ZOFRAN) 4 2-28 tablet by ity of mg tablet 00:00: mouth [place] 00 every 8 Medical (eight) Branch hours as needed for Nausea and Vomiting (N/V). ondansetron 2018-07 Yes [id number] 4mg Take 1 [facility] (ZOFRAN) 4 2-28 tablet by ity of mg tablet 00:00: mouth [place] 00 every 8 Medical (eight) Branch hours as needed for Nausea and Vomiting (N/V). ondansetron 2018-07 Yes [id number] 4mg Take 1 [facility] (ZOFRAN) 4 2-28 tablet by ity of mg tablet 00:00: mouth [place] 00 every 8 Medical (eight) Branch hours as needed for Nausea and Vomiting (N/V). ondansetron 2018-07 Yes [id number] 4mg Take 1 [facility] (ZOFRAN) 4 2-28 tablet by ity of mg tablet 00:00: mouth [place] 00 every 8 Medical (eight) Branch hours as needed for Nausea and Vomiting (N/V). ondansetron 2018-07 Yes [id number] 4mg Take 1 [facility] (ZOFRAN) 4 2-28 tablet by ity of mg tablet 00:00: mouth [place] 00 every 8 Medical (eight) Branch hours as needed for Nausea and Vomiting (N/V). ondansetron 2018-07 Yes [id number] 4mg Take 1 [facility] (ZOFRAN) 4 2-28 tablet by ity of mg tablet 00:00: mouth [place] 00 every 8 Medical (eight) Branch hours as needed for Nausea and Vomiting (N/V). traMADol 2018-07- No [id number] 50mg Take 1 [facility] (ULTRAM) 50 2-28 11-20 tablet by it y of mg tablet 00:00: 00:00 mouth [place] 00 :00 every 6 Medical (six) Branch hours as needed for Pain (scale 7-10). ibuprofen 2018-07 No 1mg 800 mg 2-19 tablet 00:00: 00 Contrave 2018-07 No 1mg mg-90 mg 2-19 tablet,exte 00:00: nded 00 release ibuprofen 2018-07 No 1mg 800 mg 2-19 tablet 00:00: 00 Contrave 2018-07 No 1mg mg-90 mg 2-19 tablet,exte 00:00: nded 00 release ibuprofen 2018-07 No 1mg 800 mg 2-19 tablet 00:00: 00 Contrave 2018-07 No 1mg mg-90 mg 2-19 tablet,exte [...] mg capsule 0-16 00:00: 00 Xenical 120 2018-1 No 1mg mg capsule 0-16 00:00: 00 triamcinolo 2018-1 No 1% ne 0-16 acetonide 00:00: 0.1 [...] % 0-16 shampoo 00:00: 00 Xenical 120 2018-1 No 1mg mg capsule 0-16 00:00: 00 Xenical 120 2018-1 No 1mg mg capsule 0-16 00:00: 00 triamcinolo 2018-1 No 1% ne 0-16 acetonide 00:00: 0.1 % 00 topical ointment ketoconazol 2018-1 No 1% e 2 % 0-16 shampoo 00:00: 00 Xenical 120 2018-1 No 1mg mg capsule 0-16 00:00: 00 Xenical 120 2018-1 No 1mg mg capsule 0-16 00:00: 00 triamcinolo 2018-1 No 1% ne 0-16 acetonide 00:00: 0.1 % 00 topical ointment ketoconazol 2018- No 1% e 2 % 0-16 shampoo 00:00: 00 Xenical 120 2018-1 No 1mg mg capsule 0-16 00:00: 00 Xenical 120 2018-1 No 1mg mg capsule 0-16 00:00: 00 triamcinolo 2018-1 No 1% ne 0-16 acetonide 00:00: 0.1 % 00 topical ointment ketoconazol 2018-1 No 1% e 2 % 0-16 shampoo 00:00: 00 Xenical 120 2018-1 No 1mg mg capsule 0-16 00:00: 00 Xenical 120 2018-1 No 1mg mg capsule 0-16 00:00: 00 Polytrim 2019- No 11 10,000 0-14 mg/mL unit-1 00:00: mg/mL eye 00 drops Polytrim 2019- No 11 10,000 0-14 mg/mL unit-1 00:00: mg/mL eye 00 drops Polytrim 2019- No 11 10,000 0-14 mg/mL unit-1 00:00: mg/mL eye 00 drops Polytrim 2018- No 11 10,000 0-14 mg/mL unit-1 00:00: mg/mL eye 00 drops Polytrim 2018- No 11 10,000 0-14 mg/mL unit-1 00:00: mg/mL eye 00 drops Polytrim 2019- No 11 10,000 0-14 mg/mL unit-1 00:00: mg/mL eye 00 drops Polytrim 2019- No 11 10,000 0-14 mg/mL unit-1 00:00: mg/mL eye 00 drops Polytrim 2018- No 11 10,000 0-14 mg/mL unit-1 00:00: mg/mL eye 00 drops Polytrim 2018- No 11 10,000 0-14 mg/mL unit-1 00:00: mg/mL eye 00 drops Polytrim 2018- No 11 10,000 0-14 mg/mL unit-1 00:00: mg/mL eye 00 drops Polytrim 2018- No 11 10,000 0-14 mg/mL unit-1 00:00: mg/mL eye 00 drops metronidazo 2018- No 1mg le 500 mg 0-11 tablet 00:00: 00 metronidazo 2018- No 1mg le 500 mg 0-11 tablet 00:00: 00 metronidazo 2018- No 1mg le 500 mg 0-11 tablet 00:00: 00 metronidazo 2018- No 1mg le 500 mg 0-11 tablet 00:00: 00 metronidazo 2018- No 1mg le 500 mg 0-11 tablet 00:00: 00 metronidazo 2019- No 1mg le 500 mg 0-11 tablet 00:00: 00 metronidazo 2019-1 No 1mg le 500 mg 0-11 tablet 00:00: 00 metronidazo 2019- No 1mg le 500 mg 0-11 tablet 00:00: 00 metronidazo 2019- No 1mg le 500 mg 0-11 tablet 00:00: 00 metronidazo 2019- No 1mg le 500 mg 0-11 tablet 00:00: 00 metronidazo 2019- No 1mg le 500 mg 0-11 tablet 00:00: 00 metronidazo 2019- No 1mg le 500 mg 0-03 tablet 00:00: 00 metronidazo 2018- No 1mg le 500 mg 0-03 tablet 00:00: 00 metronidazo 2019- No 1mg le 500 mg 0-03 tablet 00:00: 00 metronidazo 2018- No 1mg le 500 mg 0-03 tablet [...] e 1 % 0-01 vaginal 00:00: cream clotrimazol 2019-1 No 1% e 1 % 0-01 vaginal 00:00: cream 00 clotrimazol 2019-1 No 1% e 1 % 0-01 vaginal 00:00: cream 00 clotrimazol 2019-1 No 1% e 1 % 0-01 vaginal 00:00: cream clotrimazol 2019-1 No 1% e 1 % 0-01 vaginal 00:00: cream 00 clotrimazol 2019-1 No 1% e 1 % 0-01 vaginal 00:00: cream clotrimazol 2019-1 No 1% e 1 % 0-01 vaginal 00:00: cream 00 clotrimazol 2019-1 No 1% e 1 % 0-01 vaginal 00:00: cream 00 clotrimazol 2019-1 No 1% e 1 % 0-01 vaginal 00:00: cream atorvastati 2019-0 No 1mg n 40 mg [...] 50 9-17 mg capsule 00:00: 00 hydrOXYzine 2018-0 Yes [id number] 10mg Take 1 [facility] 10 mg 9-13 tablet by ity of tablet 00:00: mouth [place] 00 every 6 Medical (six) Branch hours. hydrOXYzine 2018-0 Yes [id number] 10mg Take 1 [facility] 10 mg 9-13 tablet by ity of tablet 00:00: mouth [place] 00 every 6 Medical (six) Branch hours. hydrOXYzine 2018-0 Yes [id number] 10mg Take 1 [facility] 10 mg 9-13 tablet by ity of tablet 00:00: mouth [place] 00 every 6 Medical (six) Branch hours. hydrOXYzine Yes [id number] 10mg Take 1 [facility] 10 mg 9-13 tablet by ity of tablet 00:00: mouth [place] 00 every 6 Medical (six) Branch hours. hydrOXYzine 2018-0 Yes [id number] 10mg Take 1 [facility] 10 mg 9-13 tablet by ity of tablet 00:00: mouth [place] 00 every 6 Medical (six) Branch hours. hydrOXYzine 2018-0 Yes [id number] 10mg Take 1 [facility] 10 mg 9-13 tablet by ity of tablet 00:00: mouth [place] 00 every 6 Medical (six) Branch hours. hydrOXYzine 2018-0 Yes [id number] 10mg Take 1 [facility] 10 mg 9-13 [...] elease mirtazapine 2019-0 No 1mg 45 mg 6-11 [...] mg-trimetho 00:00: prim 160 mg 00 tablet bupropion 2019-0 No 1mg HCl SR 150 [...] lisinopril 2019-0 No 1mg 5 mg tablet 522 00:00: 00 fluconazole 2019-0 No 1mg 150 [...] tablet 08-08 00:00: 00 Zofran 4 mg 2018-1 No 1mg tablet 08-08 00:00: 00 lisinopril 2018-1 No 1mg 5 mg tablet 08-08 00:00: 00 Zofran 4 mg 2017-07 No 1mg tablet 08-08 00:00: 00 lisinopril 2017-07 No 1mg 5 mg tablet 08-08 00:00: 00 Zofran 4 mg 2017-07 No 1mg tablet 08-08 00:00: 00 lisinopril 2017-07 No 1mg 5 mg tablet 08-08 00:00: 00 Zofran 4 mg 2017-07 No 1mg tablet 08-08 00:00: 00 lisinopril 2017-07 No 1mg 5 mg tablet 08-08 00:00: 00 Zofran 4 mg 2017-07 No 1mg tablet 08-08 00:00: 00 lisinopril 2017-07 No 1mg 5 mg tablet 08-08 00:00: 00 Zofran 4 mg 2017-07 No 1mg tablet 08-08 00:00: 00 lisinopril 2017-07 No 1mg 5 mg tablet 08-08 00:00: 00 Zofran 4 mg 2017-07 No 1mg tablet 08-08 00:00: 00 lisinopril 2017-07 No 1mg 5 mg tablet 08-08 00:00: 00 Zofran 4 mg 2017-07 No 1mg tablet 08-08 00:00: 00 lisinopril 2017-07 No 1mg 5 mg tablet 08-08 00:00: 00 Zofran 4 mg 2017-07 No 1mg tablet 08-08 00:00: 00 lisinopril 2017-07 No 1mg 5 mg tablet 08-08 00:00: 00 Zofran 4 mg 2017-07 No 1mg tablet 08-08 00:00: 00 lisinopril 2017-07 No 1mg 5 mg tablet 08-08 00:00: 00 Zofran 4 mg 2017-07 No 1mg tablet 08-08 00:00: 00 metformin 2017-07 No 1mg 1,000 mg 1-13 tablet 00:00: 00 metformin 2017- No 1mg 1,000 mg 1-13 tablet 00:00: 00 metformin 2017-07 No 1mg 1,000 mg 1-13 tablet 00:00: 00 metformin 2017- No 1mg 1,000 mg 1-13 tablet 00:00: 00 metformin 2017- No 1mg 1,000 mg 1-13 tablet 00:00: [...] Effexor XR 2018-0 No 1mg 75 mg - capsule,ext 00:00: ended 00 release Lexapro 20 [...] QD Take 10 mg [facility] (CLARITIN) [address] 10 mg 00:00: daily. Hospita tablet 00 l loratadine 2018-0 Yes 10mg QD Take 10 mg M [facility]i (CLARITIN) 9- by mouth st 10 mg 00:00: daily. [...] QD Take 10 mg M [facility]i (CLARITIN) [address] 10 mg 00:00: daily. Hospita tablet 00 l loratadine 2018-0 Yes 10mg QD Take 10 mg M ethodi (CLARITIN) -[address] 10 mg 00:00: daily. Hospita tablet 00 l loratadine 2018-0 Yes 10mg QD Take 10 mg M ethodi (CLARITIN) [address] 10 mg 00:00: daily. [...] Lexapro 20 2018-0 No 15mg mg tablet 816 00:00: 00 Abilify 5 2018-0 No 1mg mg tablet 8 00:00: 00 trazodone 2018-0 No 12mg 100 mg 8-16 tablet 00:00: 00 Lexapro 20 2018-0 No 15mg mg tablet 816 00:00: 00 Abilify 5 2018-0 No 1mg mg tablet 816 00:00: 00 trazodone 2018-0 No 12mg 100 mg 8-16 tablet 00:00: 00 Lexapro 20 2018-0 No 15mg mg tablet 816 00:00: 00 Abilify 5 2018-0 No 1mg mg tablet 816 00:00: 00 trazodone 2018-0 No 12mg 100 mg 8-16 tablet 00:00: 00 Lexapro 20 2018-0 No 15mg mg tablet 816 00:00: 00 Abilify 5 2018-0 No 1mg mg tablet 816 00:00: 00 trazodone 2018-0 No 12mg 100 [...] Abilify 5 2018-0 No 1mg mg tablet 5- 00:00: 00 Vistaril 25 2018-0 No 1mg mg capsule 5- 00:00: 00 Lexapro 20 2018-0 No 1mg mg tablet 5- 00:00: 00 Abilify 5 2018-0 No 1mg mg tablet 5- 00:00: 00 Vistaril 25 2018-0 No 1mg mg capsule 5- 00:00: 00 Lexapro 20 2018-0 No 1mg mg tablet 5- 00:00: 00 Abilify 5 2018-0 No 1mg mg tablet 5- 00:00: 00 Vistaril 25 2018-0 No 1mg mg capsule 5- 00:00: 00 Lexapro 20 2018-0 No 1mg mg tablet 5- 00:00: 00 Abilify 5 2018-0 No 1mg mg tablet 5- 00:00: 00 Vistaril 25 2018-0 No 1mg mg capsule 5- 00:00: 00 Lexapro 20 2018-0 No 1mg mg tablet 5- 00:00: 00 Abilify 5 2018-0 No 1mg mg tablet 5- 00:00: 00 Vistaril 25 2018-0 No 1mg mg capsule 5- 00:00: 00 Abilify 5 2018-0 No 1mg [...] Abilify 5 2018-0 No 1mg mg tablet 07-21 00:00: 00 Lexapro 20 2018-0 No 1mg mg tablet - 00:00: 00 Vistaril 25 2018-0 No 1mg mg capsule 07-21 00:00: 00 Abilify 5 2018-0 No 1mg mg tablet 07-21 00:00: 00 Lexapro 20 2018-0 No 1mg mg tablet 07-21 00:00: 00 Vistaril 25 2018-0 No 1mg mg capsule 07-21 00:00: 00 Abilify 5 2018-0 No 1mg mg tablet - 00:00: 00 Lexapro 20 2018-0 No 1mg mg tablet 1-11 00:00: 00 Vistaril 25 2018-0 No 1mg mg capsule 1- 00:00: 00 Abilify 5 2018-0 No 1mg mg tablet 1- 00:00: 00 Lexapro 20 2018-0 No 1mg mg tablet - 00:00: 00 Vistaril 25 2018-0 No 1mg mg capsule - 00:00: 00 Abilify 5 2018-0 No 1mg mg tablet - 00:00: 00 Lexapro 20 2018-0 No 1mg mg tablet - 00:00: 00 Vistaril 25 2018-0 No 1mg mg capsule - 00:00: 00 Abilify 5 2018-0 No 1mg mg tablet - 00:00: 00 Lexapro 20 2018-0 No 1mg mg tablet - 00:00: 00 Vistaril 25 2018-0 No 1mg mg capsule - 00:00: 00 Abilify 5 2018-0 No 1mg mg tablet - 00:00: 00 Lexapro 20 2018-0 No 1mg mg tablet - 00:00: 00 Vistaril 25 2018-0 No 1mg mg capsule - 00:00: 00 Abilify 5 2018-0 No 1mg mg tablet - 00:00: 00 Lexapro 20 2018-0 No 1mg mg tablet - 00:00: 00 Vistaril 25 2018-0 No 1mg mg capsule - 00:00: 00 Abilify 5 2018-0 No 1mg mg tablet - 00:00: 00 Lexapro 20 2018-0 No 1mg mg tablet - 00:00: 00 Vistaril 25 2018-0 No 1mg mg capsule - 00:00: 00 Abilify 5 2018-0 No 1mg mg tablet - 00:00: 00 Lexapro 20 2018-0 No 1mg mg tablet - 00:00: 00 Vistaril 25 2018-0 No 1mg mg capsule - 00:00: 00 Abilify 5 2018-0 No 1mg mg tablet - 00:00: 00 Lexapro 20 2018-0 No 1mg mg tablet -11 00:00: 00 Vistaril 25 2018-0 No 1mg mg capsule 1- 00:00: 00 Abilify 5 2018-0 No 1mg mg tablet 1-08 00:00: 00 Abilify 5 2018-0 No 1mg mg tablet - 00:00: 00 Lexapro 20 2018-0 No 1mg mg tablet - 00:00: 00 Lexapro 20 2018-0 No 1mg mg tablet 1-08 00:00: 00 Abilify 5 2018-0 No 1mg mg tablet 1- 00:00: 00 Lexapro 20 2018-0 No 1mg mg tablet 1- 00:00: 00 Abilify 5 2018-0 No 1mg mg tablet 07-18 00:00: 00 Lexapro 20 2018-0 No 1mg mg tablet 07-18 00:00: 00 Abilify 5 2018-0 No 1mg mg tablet - 00:00: 00 Lexapro 20 2018-0 No 1mg mg tablet - 00:00: 00 Abilify 5 2018-0 No 1mg mg tablet - 00:00: 00 Lexapro 20 2018-0 No 1mg mg tablet - 00:00: 00 Abilify 5 2018-0 No 1mg mg tablet - 00:00: 00 Lexapro 20 2018-0 No 1mg mg tablet -08 00:00: 00 Abilify 5 2018-0 No 1mg mg tablet - 00:00: 00 Lexapro 20 2018-0 No 1mg mg tablet 1-08 00:00: 00 Abilify 5 2018-0 No 1mg mg tablet 1-08 00:00: 00 Lexapro 20 2018-0 No 1mg mg tablet 1-08 00:00: 00 Abilify 5 2018-0 No 1mg mg tablet 1-08 00:00: 00 Lexapro 20 2018-0 No 1mg mg tablet 1-08 00:00: 00 Abilify 5 2018-0 No 1mg mg tablet 1-08 00:00: 00 Lexapro 20 2018-0 No 1mg mg tablet 1-08 00:00: 00 promethazin 2017-1 No 10mg/5 e-DM 6.25 2-04 mL mg-15 mg/5 00:00: mL syrup 00 prednisone 2016-07 No 1mg 20 mg 2-04 tablet 00:00: 00 loratadine 2016-07 No 1mg 10 mg 2-04 tablet 00:00: 00 metformin 2016-07 No 1mg 1,000 mg 2-04 tablet 00:00: 00 promethazin 2016-07 No 10mg/5 e-DM 6.25 2-04 mL mg-15 mg/5 00:00: mL syrup prednisone 2016-07 No 1mg 20 mg 2-04 tablet 00:00: 00 loratadine 2016-07 No 1mg 10 mg 2-04 tablet 00:00: 00 metformin 2016-07 No 1mg 1,000 mg 2-04 tablet 00:00: 00 promethazin 2016-07 No 10mg/5 e-DM 6.25 2-04 mL mg-15 mg/5 00:00: mL syrup prednisone 2016-07 No 1mg 20 mg 2-04 tablet 00:00: 00 loratadine 2016-07 No 1mg 10 mg 2-04 tablet 00:00: 00 metformin 2016-07 No 1mg 1,000 mg 2-04 tablet 00:00: 00 promethazin 2016-07 No 10mg/5 e-DM 6.25 2-04 mL mg-15 mg/5 00:00: mL syrup prednisone 2016-07 No 1mg 20 mg 2-04 tablet 00:00: 00 loratadine 2016-07 No 1mg 10 mg 2-04 tablet 00:00: 00 metformin 2016-07 No 1mg 1,000 mg 2-04 tablet 00:00: 00 promethazin 2016-07 No 10mg/5 e-DM 6.25 2-04 mL mg-15 mg/5 00:00: mL syrup 00 prednisone 2016-07 No 1mg 20 mg 2-04 tablet 00:00: 00 loratadine 2016-07 No 1mg 10 mg 2-04 tablet 00:00: 00 metformin 2016-07 No 1mg 1,000 mg 2-04 tablet 00:00: 00 promethazin 2016-07 No 10mg/5 e-DM 6.25 2-04 mL mg-15 mg/5 00:00: mL syrup prednisone 2016-07 No 1mg 20 mg 2-04 tablet 00:00: 00 loratadine 2016-07 No 1mg 10 mg 2-04 tablet 00:00: 00 metformin 2016-07 No 1mg 1,000 mg 2-04 tablet 00:00: 00 promethazin 2016-07 No 10mg/5 e-DM 6.25 2-04 mL mg-15 mg/5 00:00: mL syrup 00 prednisone 2016-07 No 1mg 20 mg 2-04 tablet 00:00: 00 loratadine 2016-07 No 1mg 10 mg 2-04 tablet 00:00: 00 metformin 2016-07 No 1mg 1,000 mg 2-04 tablet 00:00: 00 promethazin 2016-07 No 10mg/5 e-DM 6.25 2-04 mL mg-15 mg/5 00:00: mL syrup prednisone 2016-07 No 1mg 20 mg 2-04 tablet 00:00: 00 loratadine 2016-07 No 1mg 10 mg 2-04 tablet 00:00: 00 metformin 2016-07 No 1mg 1,000 mg 2-04 tablet 00:00: 00 promethazin 2016-07 No 10mg/5 e-DM 6.25 2-04 mL mg-15 mg/5 00:00: mL syrup prednisone 2016-07 No 1mg 20 mg 2-04 tablet 00:00: 00 loratadine 2016-07 No 1mg 10 mg 2-04 tablet 00:00: 00 metformin 2016-07 No 1mg 1,000 mg 2-04 tablet 00:00: 00 promethazin 2016-07 No 10mg/5 e-DM 6.25 2-04 mL mg-15 mg/5 00:00: mL syrup prednisone 2016-07 No 1mg 20 mg 2-04 tablet 00:00: 00 prednisone 2016-07 No 1mg 20 mg 2-04 tablet 00:00: 00 loratadine 2016-07 No 1mg 10 mg 2-04 tablet 00:00: 00 metformin 2016-07 No 1mg 1,000 mg 2-04 tablet 00:00: 00 promethazin 2016-07 No 10mg/5 e-DM 6.25 2-04 mL mg-15 mg/5 00:00: mL syrup 00 loratadine 2016-07 No 1mg 10 mg 2-04 tablet 00:00: 00 metformin 2016-07 No 1mg 1,000 mg 2-04 tablet 00:00: 00 Abilify 5 No 1mg mg tablet 04-07 00:00: 00 [...] mg 04-07 tablet 00:00: 00 Abilify 5 2017-0 No [...] mg 04-07 tablet 00:00: 00 Abilify 5 2017-0 No [...] 00 buspirone 2017-0 No 1mg 15 mg 03-24 tablet 00:00: 00 trazodone 2017-0 No 2mg 100 mg 03-24 tablet 00:00: 00 Abilify 5 2016-0 No 1mg mg tablet 03-24 00:00: 00 Lexapro 20 2017-0 No 1mg mg tablet 03-24 00:00: 00 buspirone 2017-0 No 1mg 15 mg 9-14 tablet 00:00: 00 trazodone 2017-0 No 2mg 100 mg 9-14 tablet 00:00: 00 Abilify 5 2017-0 No 1mg mg tablet 14 00:00: 00 Lexapro 20 2017-0 No 1mg mg tablet 14 00:00: 00 buspirone 2017-0 No 1mg 15 [...] Lexapro 20 2017-0 No 1mg mg tablet 14 00:00: 00 buspirone 2017-0 No 1mg 15 [...] Abilify 5 2017-0 No 1mg mg tablet 9-14 00:00: 00 Lexapro 20 2017-0 No 1mg mg tablet 9-14 00:00: 00 buspirone 2017-0 No 1mg 15 mg 9-14 tablet 00:00: 00 trazodone 2017-0 No 2mg 100 mg 9-14 tablet 00:00: 00 Abilify 5 2017-0 No 1mg mg tablet 9-14 00:00: 00 Lexapro 20 2017-0 No 1mg mg tablet 9-14 00:00: 00 buspirone 2017-0 No 1mg 15 mg 9-14 tablet 00:00: 00 trazodone 2017-0 No 2mg 100 mg 9-14 tablet 00:00: 00 Abilify 5 2016-0 No 1mg mg tablet 9-14 00:00: 00 Lexapro 20 2017-0 No 1mg mg tablet 9-14 00:00: 00 buspirone 2017-0 No 1mg 15 mg 9-14 tablet 00:00: 00 trazodone 2017-0 No 2mg 100 mg 9-14 tablet 00:00: 00 Abilify 5 2016-0 No 1mg mg tablet 9 00:00: 00 Lexapro 20 2017-0 No 1mg mg tablet 9 00:00: 00 Abilify 5 2017-0 No 1mg mg tablet 02-03 00:00: 00 Lexapro 20 2017-0 No 1mg mg tablet 02-03 00:00: 00 buspirone 2017-0 No 1mg 15 mg 7-27 tablet 00:00: 00 trazodone 2017-0 No 2mg 100 mg 7-27 tablet 00:00: 00 Abilify 5 2017-0 No 1mg mg tablet 02-03 00:00: 00 Lexapro 20 2017-0 No 1mg mg tablet 02-03 00:00: 00 buspirone 2017-0 No 1mg 15 mg 7-27 tablet 00:00: 00 trazodone 2017-0 No 2mg 100 mg 7-27 tablet 00:00: 00 Abilify 5 2017-0 No 1mg mg tablet 02-03 00:00: 00 Lexapro 20 2017-0 No 1mg mg tablet 02-03 00:00: 00 buspirone 2017-0 No 1mg 15 mg 7- tablet 00:00: 00 trazodone 2017-0 No 2mg 100 mg 7- tablet 00:00: 00 Abilify 5 2016-0 No 1mg mg tablet 02-03 00:00: 00 Lexapro 20 2017-0 No 1mg mg tablet 02-03 00:00: 00 buspirone 2017-0 No 1mg 15 mg - tablet 00:00: 00 trazodone 2017-0 No 2mg 100 mg - tablet 00:00: 00 Abilify 5 2017-0 No 1mg mg tablet 02-03 00:00: 00 Lexapro 20 2017-0 No 1mg mg tablet 02-03 00:00: 00 buspirone 2017-0 No 1mg 15 mg 7- tablet 00:00: 00 trazodone 2017-0 No 2mg 100 mg 02-03 tablet 00:00: 00 Abilify 5 2016-0 No [...] No 1mg mg tablet 02-03 00:00: 00 Abilify 5 2017-0 No 1mg mg tablet 02-03 00:00: 00 Lexapro 20 2017-0 No 1mg mg tablet 02-03 00:00: 00 buspirone 2017-0 No 1mg 15 mg 7-27 tablet 00:00: 00 buspirone 2017-0 No 1mg 15 mg 7-27 tablet 00:00: 00 trazodone 2017-0 No 2mg 100 mg 7-27 tablet 00:00: 00 trazodone 2017-0 No 2mg 100 mg 7-27 tablet 00:00: 00 Abilify 5 2017-0 No 1mg mg tablet 02-03 00:00: 00 Lexapro 20 2017-0 No 1mg mg tablet 02-03 00:00: 00 buspirone 2017-0 No 1mg 15 mg 7-27 tablet 00:00: 00 trazodone 2017-0 No 2mg 100 mg 7-27 tablet 00:00: 00 Abilify 5 2017-0 No 1mg mg tablet 02-03 00:00: [...] Lexapro 20 2017-0 No 1mg mg tablet 12-30 00:00: 00 buspirone 2017-0 No 1mg 15 mg 6-22 tablet 00:00: 00 trazodone 2017-0 No 2mg 100 mg 6-22 tablet 00:00: 00 Abilify 5 2017-0 No 1mg mg tablet 12-30 00:00: 00 Lexapro 20 2017-0 No 1mg mg tablet 12-30 00:00: 00 buspirone 2017-0 No 1mg 15 mg 6-22 tablet 00:00: 00 trazodone 2017-0 No 2mg 100 mg 6-22 tablet 00:00: 00 Abilify 5 2017-0 No 1mg mg tablet 12-30 00:00: 00 Lexapro 20 2017-0 No 1mg mg tablet 12-30 00:00: 00 buspirone 2017-0 No 1mg 15 mg 6-22 tablet 00:00: 00 trazodone 2017-0 No 2mg 100 mg 6-22 tablet 00:00: 00 Abilify 5 2017-0 No 1mg mg tablet 12-30 00:00: 00 Lexapro 20 2017-0 No 1mg mg tablet 12-30 00:00: 00 buspirone 2017-0 No 1mg 15 mg 6-22 tablet 00:00: 00 trazodone 2017-0 No 2mg 100 mg 6-22 tablet 00:00: 00 Abilify 5 2017-0 No 1mg mg tablet 12-30 00:00: 00 Lexapro 20 2017-0 No 1mg mg tablet 12-30 00:00: 00 buspirone 2017-0 No 1mg 15 mg 6-22 tablet 00:00: 00 trazodone 2017-0 No 2mg 100 mg 6-22 tablet 00:00: 00 Abilify 5 2017-0 No 1mg mg tablet 12-30 00:00: 00 Lexapro 20 2017-0 No 1mg mg tablet 12-30 00:00: 00 buspirone 2017-0 No 1mg 15 mg 6-22 tablet 00:00: 00 trazodone 2017-0 No 2mg 100 mg 6-22 tablet 00:00: 00 Abilify 5 2017-0 No 1mg mg tablet 12-30 00:00: 00 Lexapro 20 2017-0 No 1mg mg tablet 12-30 00:00: 00 buspirone 2017-0 No 1mg 15 [...] No 1mg mg tablet 5-18 00:00: 00 Lexapro 20 2017-0 No 15mg mg tablet 5-18 00:00: 00 Abilify 5 2017-0 No 1mg mg tablet 5-18 00:00: 00 buspirone 2017-0 No 1mg 10 mg 5-18 tablet 00:00: 00 trazodone 2017-0 No 1mg 150 mg 5-18 tablet 00:00: 00 buspirone 2017-0 No 1mg 10 [...] mg 4-11 tablet 00:00: 00 Abilify 5 2016-0 No 1mg mg tablet 4-11 00:00: 00 Lexapro 20 2017-0 No 15mg mg tablet 4-11 00:00: 00 trazodone 2017-0 No 1mg 150 mg 4-11 tablet 00:00: 00 Abilify 5 2016-0 No 1mg mg tablet 4-11 00:00: 00 Lexapro 20 2017-0 No 15mg mg tablet 4-11 00:00: 00 trazodone 2017-0 No 1mg 150 mg 4-11 tablet 00:00: 00 Abilify 5 2016-0 No 1mg mg tablet 4-11 00:00: 00 Lexapro 20 2017-0 No 15mg mg tablet 4-11 00:00: 00 trazodone 2017-0 No 1mg 150 mg 4-11 tablet 00:00: 00 Abilify 5 2016-0 No 1mg mg tablet 4-11 00:00: 00 Lexapro 20 2017-0 No 15mg mg tablet 4-11 00:00: 00 trazodone 2017-0 No 1mg 150 mg 4-11 tablet 00:00: 00 Abilify 5 2016-0 No 1mg mg tablet 4-11 00:00: 00 Lexapro 20 2017-0 No 15mg mg tablet 4-11 00:00: 00 trazodone 2017-0 No 1mg 150 mg 4-11 tablet 00:00: 00 Abilify 5 2016-0 No 1mg mg tablet 4-11 00:00: 00 Lexapro 20 2017-0 No 15mg mg tablet 4-11 00:00: 00 trazodone 2017-0 No 1mg 150 mg 4-11 tablet 00:00: 00 Lexapro 20 2017-0 No 15mg mg tablet 3- 00:00: 00 Abilify 5 2017-0 No 1mg mg tablet 3- 00:00: 00 trazodone 2017-0 No 1mg 150 mg 3- tablet 00:00: 00 Lexapro 20 2017-0 No 15mg mg tablet 3- 00:00: 00 Abilify 5 2017-0 No 1mg mg tablet 3- 00:00: 00 trazodone 2017-0 No 1mg 150 mg 3-07 tablet 00:00: 00 Lexapro 20 2017-0 No 15mg mg tablet 3 00:00: 00 Abilify 5 2017-0 No 1mg mg tablet 3 00:00: 00 trazodone 2017-0 No 1mg 150 mg 3-07 tablet 00:00: 00 Lexapro 20 2017-0 No 15mg mg tablet 3 00:00: 00 Abilify 5 2017-0 No 1mg mg tablet 3 00:00: 00 trazodone 2017-0 No 1mg 150 mg 3-07 tablet 00:00: 00 Lexapro 20 2017-0 No 15mg mg tablet 3 00:00: 00 Abilify 5 2017-0 No 1mg mg tablet 3 00:00: 00 trazodone 2017-0 No 1mg 150 mg 3-07 tablet 00:00: 00 Lexapro 20 2017-0 No 15mg mg tablet 3 00:00: 00 Abilify 5 2017-0 No 1mg mg tablet 3 00:00: 00 trazodone 2017-0 No 1mg 150 mg 3-07 tablet 00:00: 00 Lexapro 20 2017-0 No 15mg mg tablet 3 00:00: 00 Abilify 5 2017-0 No 1mg mg tablet 3 00:00: 00 trazodone 2017-0 No 1mg 150 mg 3-07 tablet 00:00: 00 Lexapro 20 2017-0 No 15mg mg tablet 3 00:00: 00 Abilify 5 2017-0 No 1mg mg tablet 3 00:00: 00 trazodone 2017-0 No 1mg 150 mg 3-07 tablet 00:00: 00 Lexapro 20 2017-0 No 15mg mg tablet 3 00:00: 00 Abilify 5 2017-0 No 1mg mg tablet 3 00:00: 00 trazodone 2017-0 No 1mg 150 mg 3-07 tablet 00:00: 00 Lexapro 20 2017-0 No 15mg mg tablet 3- 00:00: 00 Abilify 5 2017-0 No 1mg [...] Lexapro 20 2017-0 No 15mg mg tablet 2- 00:00: 00 Lexapro 20 2017-0 No 15mg mg tablet 2- 00:00: 00 Lexapro 20 2017-0 No 15mg mg tablet 2- 00:00: 00 Lexapro 20 2017-0 No 15mg mg tablet 2- 00:00: 00 Lexapro 20 2017-0 No 15mg [...] Lexapro 20 2017-0 No 15mg mg tablet -12 00:00: 00 Abilify 5 2017-0 No 1mg [...] 1-05 L injection 00:00: solution 00 Augmentin No 1mg 500 mg-125 1-05 mg tablet 00:00: 00 Abilify 2015-07 No 1mg mg tablet 2-08 00:00: 00 Abilify 2015-07 No 1mg mg tablet 2-08 00:00: 00 Lexapro 20 2015-07 No 1mg mg tablet 2-08 00:00: 00 trazodone 2015-07 No 1mg 150 mg 2-08 tablet 00:00: 00 hydroxyzine 2015-07 No 12mg HCl 25 mg 2-08 tablet 00:00: 00 Abilify 2015-07 No 1mg mg tablet 2-08 00:00: 00 Abilify 2015-07 No 1mg mg tablet 2-08 00:00: 00 Lexapro 20 2015-07 No 1mg mg tablet 2-08 00:00: 00 trazodone 2015-07 No 1mg 150 mg 2-08 tablet 00:00: 00 hydroxyzine 2015-07 No 12mg HCl 25 mg 2-08 tablet 00:00: 00 Abilify 2015-07 No 1mg mg tablet 2-08 00:00: 00 Abilify 2015-07 No 1mg mg tablet 2-08 00:00: 00 Lexapro 20 2015-07 No 1mg mg tablet 2-08 00:00: 00 trazodone 2015-07 No 1mg 150 mg 2-08 tablet 00:00: 00 hydroxyzine 2015-07 No 12mg HCl 25 mg 2-08 tablet 00:00: 00 Abilify 2015-07 No 1mg mg tablet 2-08 00:00: 00 Abilify 2015-07 No 1mg mg tablet 2-08 00:00: 00 Lexapro 20 2015-07 No 1mg mg tablet 2-08 00:00: 00 trazodone 2015-07 No 1mg 150 mg 2-08 tablet 00:00: 00 hydroxyzine 2015-07 No 12mg HCl 25 mg 2-08 tablet 00:00: 00 Abilify 2015-07 No 1mg mg tablet 2-08 00:00: 00 Abilify 2015-07 No 1mg mg tablet 2-08 00:00: 00 Abilify 2015-07 No 1mg mg tablet 2-08 00:00: 00 Lexapro 20 2015-07 No 1mg mg tablet 2-08 00:00: 00 trazodone 2015-07 No 1mg 150 mg 2-08 tablet 00:00: 00 hydroxyzine 2015-07 No 12mg HCl 25 mg 2-08 tablet 00:00: 00 Abilify 2015-07 No 1mg mg tablet 2-08 00:00: 00 Lexapro 20 2015-07 No 1mg mg tablet 2-08 00:00: 00 trazodone 2015-07 No 1mg 150 mg 2-08 tablet 00:00: 00 hydroxyzine 2015-07 No 12mg HCl 25 mg 2-08 tablet 00:00: 00 Abilify 2015-07 No 1mg mg tablet 2-08 00:00: 00 Abilify 2015-07 No 1mg mg tablet 2-08 00:00: 00 Lexapro 20 2015-07 No 1mg mg tablet 2-08 00:00: 00 trazodone 2015-07 No 1mg 150 mg 2-08 tablet 00:00: 00 hydroxyzine 2015-07 No 12mg HCl 25 mg 2-08 tablet 00:00: 00 Abilify 2015-07 No 1mg mg tablet 2-08 00:00: 00 Abilify 2015-07 No 1mg mg tablet 2-08 00:00: 00 Lexapro 2015-07 No 1mg mg tablet 2-08 00:00: 00 trazodone 2015-07 No 1mg 150 mg 2-08 tablet 00:00: 00 hydroxyzine 2015-07 No 12mg HCl 25 mg 2-08 tablet 00:00: 00 Abilify 2015-07 No 1mg mg tablet 2-08 00:00: 00 Abilify 2015-07 No 1mg mg tablet 2-08 00:00: 00 Lexapro 20 2015-07 No 1mg mg tablet 2-08 00:00: 00 trazodone 2015-07 No 1mg 150 mg 2-08 tablet 00:00: 00 hydroxyzine 2015-07 No 12mg HCl 25 mg 2-08 tablet 00:00: 00 Abilify 2015-07 No 1mg mg tablet 2-08 00:00: 00 Abilify 2015-07 No 1mg mg tablet 2-08 00:00: [...] Lexapro 20 2015-07 No 1mg mg tablet 07-13 00:00: 00 trazodone 2015-07 No 1mg 150 mg 1-03 tablet 00:00: 00 hydroxyzine 2015-07 No 12mg HCl 25 mg 1-03 tablet 00:00: 00 Lexapro 20 2015-07 No 1mg mg tablet 07-13 00:00: 00 trazodone 2015-07 No 1mg 150 mg 1-03 tablet 00:00: 00 hydroxyzine 2015-07 No 12mg HCl 25 mg 1-03 tablet 00:00: 00 Lexapro 20 2015-07 No 1mg mg tablet 07-13 00:00: 00 trazodone 2015-07 No 1mg 150 mg 1-03 tablet 00:00: 00 hydroxyzine 2015-07 No 12mg HCl 25 mg 1-03 tablet 00:00: 00 Lexapro 20 2015-07 No 1mg mg tablet 07-13 00:00: 00 trazodone 2015-07 No 1mg 150 mg 1-03 tablet 00:00: 00 hydroxyzine 2015-07 No 12mg HCl 25 mg 1-03 tablet 00:00: 00 Lexapro 20 2015-07 No 1mg mg tablet 07-13 00:00: 00 trazodone 2015-07 No 1mg 150 mg 1-03 tablet 00:00: 00 hydroxyzine 2015-07 No 12mg HCl 25 mg 1-03 tablet 00:00: 00 Lexapro 20 2015-07 No 1mg mg tablet 07-13 00:00: 00 trazodone 2015-07 No 1mg 150 mg 1-03 tablet 00:00: 00 hydroxyzine 2015-07 No 12mg HCl 25 mg 1-03 tablet 00:00: 00 Lexapro 20 2015-07 No 1mg mg tablet 07-13 00:00: 00 trazodone 2015-07 No 1mg 150 mg 1-03 tablet 00:00: 00 hydroxyzine 2015-07 No 12mg HCl 25 mg 1-03 tablet 00:00: 00 Lexapro 20 2015-07 No 1mg mg tablet 1- 00:00: 00 trazodone 2015-07 No 1mg 150 mg 1-03 tablet 00:00: 00 hydroxyzine 2015-07 No 12mg HCl 25 mg 1-03 tablet 00:00: 00 Lexapro 2015-07 No 1mg mg tablet 1-03 00:00: 00 trazodone 2015-07 No 1mg 150 mg 1-03 tablet 00:00: 00 hydroxyzine 2015-07 No 12mg HCl 25 mg 1-03 tablet 00:00: 00 Lexapro 2015-07 No 1mg mg tablet 0-11 00:00: 00 trazodone 2015-07 No 51mg 100 mg 0-11 tablet 00:00: 00 Lexapro 2015-07 No 1mg mg tablet 0-11 00:00: 00 trazodone 2015-07 No 51mg 100 mg 0-11 tablet 00:00: 00 Lexapro 2015-07 No 1mg mg tablet 0-11 00:00: 00 trazodone 2015-07 No 51mg 100 mg 0-11 tablet 00:00: 00 Lexapro 2015-07 No 1mg mg tablet 0-11 00:00: 00 trazodone 2015-07 No 51mg 100 mg 0-11 tablet 00:00: 00 Lexapro 2015-07 No 1mg mg tablet 0-11 00:00: 00 trazodone 2015-07 No 51mg 100 mg 0-11 tablet 00:00: 00 Lexapro 2015-07 No 1mg mg tablet 0-11 00:00: 00 trazodone 2015-07 No 51mg 100 mg 0-11 tablet 00:00: 00 Lexapro 2015-07 No 1mg mg tablet 0-11 00:00: 00 trazodone 2015-07 No 51mg 100 mg 0-11 tablet 00:00: 00 Lexapro 2015-07 No 1mg mg tablet 0-11 00:00: 00 trazodone 2015-07 No 51mg 100 mg 0-11 tablet 00:00: 00 Lexapro 2015-07 No 1mg mg tablet 0-11 00:00: 00 trazodone 2015-07 No 51mg 100 mg 0-11 tablet 00:00: 00 Lexapro 2015-07 No 1mg mg tablet 0-11 00:00: 00 trazodone 2015-07 No 51mg 100 mg 0-11 tablet 00:00: 00 Lexapro 20 2016-1 No 1mg mg tablet 0-11 00:00: 00 [...] 1mg 1,000 mg 9-09 tablet 00:00: 00 simvastatin 2016-0 No 1mg 20 mg 9-09 tablet 00:00: 00 metformin 2016-0 No 1mg 1,000 mg 9-09 tablet 00:00: 00 buspirone 2016-0 No 1mg 7.5 mg 9-09 tablet 00:00: 00 hydroxyzine 2016-0 No 12mg HCl 25 mg 9-09 tablet 00:00: 00 buspirone 2016-0 [...] 1% % topical 5-13 gel 00:00: 00 Voltaren 1 2016-0 No 1% % topical 5-13 gel 00:00: 00 cyclobenzap 2016-0 No 1mg rine 10 mg 5-13 tablet 00:00: 00 cyclobenzap 2016-0 No 1mg rine [...] lisinopril 2016-0 No 1mg 5 mg tablet 11-14 00:00: 00 metformin 2016-0 No 1mg 1,000 mg 5-07 tablet 00:00: 00 simvastatin 2016-0 No 1mg 20 mg 5-07 tablet 00:00: 00 nystatin 2016-0 No 1unit/g 100,000 5-07 robert unit/gram 00:00: topical 00 powder lisinopril 2016-0 No 1mg 5 mg tablet 07 00:00: 00 metformin 2016-0 No 1mg 1,000 [...] lisinopril 2016-0 No 1mg 5 mg tablet 07 00:00: 00 metformin 2016-0 No 1mg 1,000 [...] lisinopril 2016-0 No 1mg 5 mg tablet 11-14 00:00: 00 metformin 2016-0 No 1mg 1,000 mg 5-07 tablet 00:00: 00 simvastatin 2016-0 No 1mg 20 mg 5-07 tablet 00:00: 00 nystatin 2016-0 No 1unit/g 100,000 5-07 robert unit/gram 00:00: topical 00 powder lisinopril 2016-0 No 1mg 5 mg tablet 07 00:00: 00 metformin 2016-0 No 1mg 1,000 mg 5-07 tablet 00:00: 00 simvastatin 2016-0 No 1mg 20 mg 5-07 tablet 00:00: 00 nystatin 2016-0 No 1unit/g 100,000 5-07 robert unit/gram 00:00: topical 00 powder lisinopril 2016-0 No 1mg 5 mg tablet 11-14 00:00: 00 metformin 2016-0 No 1mg 1,000 mg 5-07 tablet 00:00: 00 simvastatin 2016-0 No 1mg 20 mg 5-07 tablet 00:00: 00 Vistaril 50 2016-0 No 1mg mg capsule 10-16 00:00: 00 Vistaril 50 2016-0 No 1mg mg capsule 10-16 00:00: 00 Vistaril 50 2016-0 No 1mg mg capsule 10-16 00:00: 00 Vistaril 50 2016-0 No 1mg mg capsule 4 00:00: 00 Vistaril 50 2016-0 No 1mg mg capsule 4 00:00: 00 Vistaril 50 2016-0 No 1mg mg capsule 4 00:00: 00 Vistaril 50 2016-0 No 1mg mg capsule 4- 00:00: 00 Vistaril 50 2016-0 No 1mg mg capsule 4 00:00: 00 Vistaril 50 2016-0 No 1mg mg capsule 4- 00:00: 00 Vistaril 50 2016-0 No 1mg mg capsule 4 00:00: 00 Vistaril 50 2016-0 No 1mg mg capsule 4 00:00: 00 lisinopril 2016-0 No 1mg 5 mg tablet 3 00:00: 00 metformin 2016-0 No 1mg 1,000 mg 3-19 tablet 00:00: 00 lisinopril 2016-0 No 1mg 5 mg tablet 319 00:00: 00 metformin 2016-0 No 1mg 1,000 mg 3-19 tablet 00:00: 00 lisinopril 2016-0 No 1mg 5 mg tablet 3 00:00: 00 metformin 2016-0 No 1mg 1,000 mg 3-19 tablet 00:00: 00 lisinopril 2016-0 No 1mg 5 mg tablet 319 00:00: 00 metformin 2016-0 No 1mg 1,000 [...] lisinopril 2016-0 No 1mg 5 mg tablet 319 00:00: 00 metformin 2016-0 No 1mg 1,000 mg 3-19 tablet 00:00: 00 lisinopril 2016-0 No 1mg 5 mg tablet 3-19 00:00: 00 metformin 2016-0 No 1mg 1,000 mg 3-19 tablet 00:00: 00 Effexor XR 2016-0 No 1mg 150 mg 08-07 capsule,ext 00:00: ended 00 release doxepin 25 2015-0 No 13mg mg capsule 08-07 00:00: 00 Effexor XR 2015-0 No 1mg 150 mg 08-07 capsule,ext 00:00: ended release doxepin 25 2015-0 No 13mg mg [...] 1mg 150 mg 08-07 capsule,ext 00:00: ended release doxepin 25 2015-0 No 13mg mg capsule 08-07 00:00: 00 Effexor XR 2015-0 No 1mg 150 mg 08-07 capsule,ext 00:00: ended release doxepin 25 2015-0 No 13mg mg capsule 08-07 00:00: 00 Effexor XR 2015-0 No 1mg 150 mg 08-07 capsule,ext 00:00: ended 00 release doxepin 25 2015-0 No 13mg mg capsule 08-07 00:00: 00 Effexor XR 2015-0 No 1mg 150 mg 08-07 capsule,ext 00:00: ended release doxepin 25 2015-0 No 13mg mg capsule 08-07 00:00: 00 Effexor XR 2015-0 No 1mg 150 mg 08-07 capsule,ext 00:00: ended 00 release doxepin 25 2015-0 No 13mg mg capsule 08-07 00:00: 00 Effexor XR 2015-0 No 1mg 150 mg -28 capsule,ext 00:00: ended 00 release doxepin 25 2015-0 No 13mg mg capsule 08-07 00:00: 00 Effexor XR 2015-0 No 1mg 150 mg -28 capsule,ext 00:00: ended 00 release doxepin 25 2015-0 No 13mg mg capsule 08-07 00:00: 00 doxepin 10 2015-0 No 12mg mg capsule 07-24 00:00: 00 Effexor XR 2015-0 No mg 75 mg -14 capsule,ext 00:00: ended 00 release doxepin 10 2015-0 No 12mg mg capsule 14 00:00: 00 Effexor XR 2015-0 No mg 75 mg -14 capsule,ext 00:00: ended 00 release doxepin 10 2015-0 No 12mg mg capsule 14 00:00: 00 Effexor XR 2015-0 No mg 75 mg -14 capsule,ext 00:00: ended 00 release doxepin 10 2015-0 No 12mg mg capsule 14 00:00: 00 Effexor XR 2015-0 No mg 75 mg -14 capsule,ext 00:00: ended 00 release doxepin 10 2015-0 No 12mg mg capsule 14 00:00: 00 Effexor XR 2015-0 No mg 75 mg -14 capsule,ext 00:00: ended 00 release doxepin 10 2015-0 No 12mg mg capsule 14 00:00: 00 Effexor XR 2015-0 No mg 75 mg -14 capsule,ext 00:00: ended 00 release doxepin 10 2015-0 No 12mg mg capsule 14 00:00: 00 Effexor XR 2015-0 No mg 75 mg 1-14 capsule,ext 00:00: ended 00 release doxepin 10 2015-0 No 12mg mg capsule 14 00:00: 00 Effexor XR 2015-0 No mg 75 mg 1-14 capsule,ext 00:00: ended 00 release doxepin 10 2015-0 No 12mg mg capsule 14 00:00: 00 Effexor XR 2015-0 No mg 75 mg 1-14 capsule,ext 00:00: ended 00 release doxepin 10 2015-0 No 12mg mg capsule 14 00:00: 00 Effexor XR 2016-0 No mg 75 mg 1-14 capsule,ext 00:00: ended 00 release doxepin 10 2016-0 No 12mg mg capsule 1-14 00:00: 00 Effexor XR 2016-0 No mg 75 mg 1-14 capsule,ext 00:00: ended 00 release glimepiride 2016-0 No 1mg 4 mg tablet 1 00:00: 00 metformin 2016-0 No 1mg 1,000 mg 1-04 tablet 00:00: 00 simvastatin 2016-0 No 1mg 20 mg 1-04 tablet 00:00: 00 simvastatin 2016-0 No 1mg 20 mg 1-04 tablet 00:00: 00 glimepiride 2016-0 No 1mg 4 mg tablet 104 00:00: 00 metformin 2016-0 No 1mg 1,000 mg 1-04 tablet 00:00: 00 simvastatin 2016-0 No 1mg 20 mg 1-04 tablet 00:00: 00 simvastatin 2016-0 No 1mg 20 mg 1-04 tablet 00:00: 00 glimepiride 2016-0 No 1mg 4 mg tablet 104 00:00: 00 metformin 2016-0 No 1mg 1,000 mg 1-04 tablet 00:00: 00 simvastatin 2016-0 No 1mg 20 mg 1-04 tablet 00:00: 00 simvastatin 2016-0 No 1mg 20 mg 1-04 tablet 00:00: 00 glimepiride 2016-0 No 1mg 4 mg tablet 104 00:00: 00 metformin 2016-0 No 1mg 1,000 [...] capsule 2-14 00:00: 00 Paxil 20 mg 2014-1 No 1mg tablet 1- 00:00: 00 Paxil 20 mg 2014-1 No 1mg tablet - 00:00: 00 Paxil 20 mg 2014-1 No 1mg tablet 1- 00:00: 00 Paxil 20 mg 2014-1 No 1mg tablet - 00:00: 00 Paxil 20 mg 2014-1 No 1mg tablet - 00:00: 00 Paxil 20 mg 2014-1 No 1mg tablet - 00:00: 00 Paxil 20 mg 2014-1 No 1mg tablet - 00:00: 00 Paxil 20 mg 2014-1 No 1mg tablet - 00:00: 00 Paxil 20 mg 2014-1 No 1mg tablet - 00:00: 00 Paxil 20 mg 2014-1 No 1mg tablet - 00:00: 00 Paxil 20 mg 2014-1 No 1mg tablet - 00:00: 00 Paxil 20 mg 2015-0 No [...] 00 metformin 2015-0 No 1mg 1,000 mg - tablet 00:00: 00 lisinopril 2015-0 No 1mg 5 mg tablet 01-15 00:00: 00 glimepiride 2015-0 No 1mg 4 mg tablet 01-15 00:00: 00 metformin 2015-0 No 1mg 1,000 mg 01-15 tablet 00:00: 00 lisinopril 2015-0 No 1mg 5 mg tablet 01-15 00:00: 00 glimepiride 2015-0 No 1mg 4 mg tablet 01-15 00:00: 00 metformin 2015-0 No 1mg 1,000 mg 01-15 tablet 00:00: 00 lisinopril 2015-0 No 1mg 5 mg tablet 01-15 00:00: 00 glimepiride 2015-0 No 1mg 4 mg tablet 01-15 00:00: 00 metformin 2015-0 No 1mg 1,000 mg 01-15 tablet 00:00: 00 lisinopril 2015-0 No 1mg 5 mg tablet 01-15 00:00: 00 glimepiride 2015-0 No 1mg 4 mg tablet 01-15 00:00: 00 metformin 2015-0 No 1mg 1,000 mg - tablet 00:00: 00 lisinopril 2015-0 No 1mg 5 mg tablet 01-15 00:00: 00 glimepiride 2015-0 No 1mg 4 mg tablet 01-15 00:00: 00 metformin 2015-0 No 1mg 1,000 mg - tablet 00:00: 00 lisinopril 2015-0 No 1mg 5 mg tablet 01-15 00:00: 00 glimepiride 2015-0 No 1mg 4 mg tablet 01-15 00:00: 00 metformin 2015-0 No 1mg 1,000 mg 7 tablet 00:00: 00 lisinopril 2015-0 No 1mg 5 mg tablet 01-15 00:00: 00 glimepiride 2015-0 No 1mg 4 mg tablet 01-15 00:00: 00 metformin 2015-0 No 1mg 1,000 mg 7 tablet 00:00: 00 lisinopril 2015-0 No 1mg 5 mg tablet 01-15 00:00: 00 glimepiride 2015-0 No 1mg 4 mg tablet 01-15 00:00: 00 metformin 2015-0 No 1mg 1,000 mg 01-15 tablet 00:00: 00 lisinopril 2015-0 No 1mg 5 mg tablet 01-15 00:00: 00 glimepiride 2015-0 No 1mg 4 mg tablet 01-15 00:00: 00 metformin 2015-0 No 1mg 1,000 mg 01-15 tablet 00:00: 00 lisinopril 2015-0 No 1mg 5 mg tablet 01-15 00:00: 00 glimepiride 2015-0 No 1mg 4 mg tablet 01-15 00:00: 00 metformin 2015-0 No 1mg 1,000 mg 01-15 tablet 00:00: 00 Januvia 100 2015-0 No 1mg mg tablet 11-15 00:00: 00 Januvia 100 2015-0 No 1mg mg tablet 11-15 00:00: 00 Januvia 100 2015-0 No 1mg mg tablet 11-15 00:00: 00 Januvia 100 2015-0 No 1mg mg tablet 11-15 00:00: 00 Januvia 100 2015-0 No 1mg mg tablet 11-15 00:00: 00 Januvia 100 2015-0 No 1mg mg tablet 11-15 00:00: 00 Januvia 100 2015-0 No 1mg mg tablet 11-15 00:00: 00 Januvia 100 2015-0 No 1mg mg tablet 11-15 00:00: 00 Januvia 100 2015-0 No 1mg mg tablet 11-15 00:00: 00 Januvia 100 2015-0 No 1mg mg tablet 11-15 00:00: 00 Januvia 100 2015-0 No 1mg mg tablet 11-15 00:00: 00 paroxetine 2015-0 No 1mg 10 [...] 1,000 mg 3-17 tablet 00:00: 00 glimepiride 2014-0 No 1mg 4 mg tablet 3-17 00:00: 00 fluconazole 2015-0 No 1mg 150 mg 3-17 tablet 00:00: 00 lisinopril 2015-0 No 1mg 5 mg tablet 317 00:00: 00 paroxetine 2015-0 No 1mg 10 mg 3-17 tablet 00:00: 00 metformin 2015-0 No 1mg 1,000 mg 3-17 tablet 00:00: 00 glimepiride 2014-0 No 1mg 4 mg tablet 317 00:00: 00 fluconazole 2015-0 No 1mg 150 mg 3-17 tablet 00:00: 00 lisinopril 2014-0 No 1mg 5 mg tablet 317 00:00: 00 paroxetine 2015-0 No 1mg 10 mg 3-17 tablet 00:00: 00 metformin 2015-0 No 1mg 1,000 mg 3-17 tablet 00:00: 00 glimepiride 2014-0 No 1mg 4 mg tablet 3-17 00:00: 00 fluconazole 2015-0 No 1mg 150 mg 3-17 tablet 00:00: 00 lisinopril 2015-0 No 1mg 5 mg tablet 317 00:00: 00 paroxetine 2015-0 No 1mg 10 mg 3-17 tablet 00:00: 00 metformin 2015-0 No 1mg 1,000 mg 3-17 tablet 00:00: 00 glimepiride 2014-0 No 1mg 4 mg tablet 3-17 00:00: 00 fluconazole 2015-0 No 1mg 150 mg 3-17 tablet 00:00: 00 lisinopril 2014-0 No 1mg 5 mg tablet 317 00:00: 00 paroxetine 2015-0 No 1mg 10 [...] 1,000 mg 3-17 tablet 00:00: 00 glimepiride 2014-0 No 1mg 4 mg tablet 317 00:00: 00 fluconazole 2015-0 No 1mg 150 mg 3-17 tablet 00:00: 00 lisinopril 2014-0 No 1mg 5 mg tablet 317 00:00: 00 paroxetine 2015-0 No 1mg 10 mg 3-17 tablet 00:00: 00 metformin 2015-0 No 1mg 1,000 mg 3-17 tablet 00:00: 00 glimepiride 2014-0 No 1mg 4 mg tablet 3-17 00:00: 00 fluconazole 2015-0 No 1mg 150 mg 3-17 tablet 00:00: 00 lisinopril 2015-0 No 1mg 5 mg tablet 317 00:00: 00 lisinopril 2015-0 No 1mg 5 mg tablet 3-17 00:00: 00 paroxetine 2015-0 No 1mg 10 mg 3-17 tablet 00:00: 00 metformin 2015-0 No 1mg 1,000 mg 3-17 tablet 00:00: 00 glimepiride 2014-0 No 1mg 4 mg tablet 3-17 00:00: 00 fluconazole 2015-0 No 1mg 150 mg 3-17 tablet 00:00: 00 lisinopril 2015-0 No 1mg 5 mg tablet 317 00:00: 00 paroxetine 2015-0 No 1mg 10 [...] 00 metformin 2015-0 No 1mg 1,000 mg - tablet 00:00: 00 Vistaril 50 2014-0 No 1mg mg capsule 08-07 00:00: 00 Vistaril 50 2014-0 No 1mg mg capsule 08-07 00:00: 00 lisinopril 2014-0 No 1mg 5 mg tablet 08-07 00:00: 00 metformin 2014-0 No 1mg 1,000 mg - tablet 00:00: 00 glimepiride 2014-0 No 1mg 4 mg tablet 08-07 00:00: 00 metformin 2014-0 No 1mg 1,000 mg - tablet 00:00: 00 Vistaril 50 2014-0 No 1mg mg capsule 08-07 00:00: 00 Vistaril 50 2014-0 No 1mg mg capsule 08-07 00:00: 00 lisinopril 2014-0 No 1mg 5 mg tablet 08-07 00:00: 00 lisinopril 2014-0 No 1mg 5 mg tablet 08-07 00:00: 00 metformin 2014-0 No 1mg 1,000 mg - tablet 00:00: 00 glimepiride 2014-0 No 1mg 4 mg tablet 08-07 00:00: 00 metformin 2014-0 No 1mg 1,000 mg - tablet 00:00: 00 Vistaril 50 2014-0 No 1mg mg capsule 08-07 00:00: 00 Vistaril 50 2014-0 No 1mg mg capsule 08-07 00:00: 00 metformin 2014-0 No 1mg 1,000 mg - tablet 00:00: 00 lisinopril 2014-0 No 1mg 5 mg tablet 08-07 00:00: 00 metformin 2015-0 No 1mg 1,000 mg - tablet 00:00: 00 glimepiride 2014-0 No 1mg 4 mg tablet 08-07 00:00: 00 metformin 2015-0 No 1mg 1,000 mg - tablet 00:00: 00 Vistaril 50 2014-0 No 1mg mg capsule 08-07 00:00: 00 Vistaril 50 2014-0 No 1mg mg capsule 08-07 00:00: 00 glimepiride 2014-0 No 1mg 4 mg tablet 08-07 00:00: 00 lisinopril 2014-0 No 1mg 5 mg tablet 08-07 00:00: 00 metformin 2015-0 No 1mg 1,000 mg - tablet 00:00: 00 glimepiride 2014-0 No 1mg 4 mg tablet 08-07 00:00: 00 metformin 2015-0 No 1mg 1,000 mg 08-07 tablet 00:00: 00 Vistaril 50 2014-0 No 1mg mg capsule 08-07 00:00: 00 Vistaril 50 2014-0 No 1mg mg capsule 08-07 00:00: 00 metformin 2014-0 No 1mg 1,000 mg 08-07 tablet 00:00: 00 lisinopril 2014-0 No 1mg 5 mg tablet 08-07 00:00: 00 metformin 2014-0 No 1mg 1,000 mg 08-07 tablet 00:00: 00 glimepiride 2014-0 No 1mg 4 mg tablet 08-07 00:00: 00 metformin 2014-0 No 1mg 1,000 mg - tablet 00:00: 00 Vistaril 50 2014-0 No 1mg mg capsule 08-07 00:00: 00 Vistaril 50 2014-0 No 1mg mg capsule 08-07 00:00: 00 Vistaril 50 2014-0 No 1mg mg capsule 08-07 00:00: 00 lisinopril 2014-0 No 1mg 5 mg tablet 08-07 00:00: 00 metformin 2015-0 No 1mg 1,000 mg - tablet 00:00: 00 glimepiride 2014-0 No 1mg 4 mg tablet 08-07 00:00: 00 metformin 2014-0 No 1mg 1,000 mg - tablet 00:00: 00 Vistaril 50 2014-0 No 1mg mg capsule 08-07 00:00: 00 Vistaril 50 2014-0 No 1mg mg capsule 08-07 00:00: 00 Vistaril 50 2014-0 No 1mg mg capsule 08-07 00:00: 00 lisinopril 2014-0 No 1mg 5 mg tablet 08-07 00:00: 00 metformin 2014-0 No 1mg 1,000 mg - tablet 00:00: 00 glimepiride 2014-0 No 1mg 4 mg tablet 08-07 00:00: 00 metformin 2014-0 No 1mg 1,000 mg - tablet 00:00: 00 Vistaril 50 2014-0 No 1mg mg capsule 08-07 00:00: 00 Vistaril 50 2014-0 No 1mg mg capsule 08-07 00:00: 00 lisinopril 2014-0 No 1mg 5 mg tablet 08-07 00:00: 00 metformin 2014-0 No 1mg 1,000 mg - tablet 00:00: 00 glimepiride 2014-0 No 1mg 4 mg tablet 08-07 00:00: 00 metformin 2014-0 No 1mg 1,000 mg 08-07 tablet 00:00: 00 Vistaril 50 2014-0 No 1mg mg capsule 08-07 00:00: 00 Vistaril 50 2014-0 No 1mg mg capsule 08-07 00:00: 00 lisinopril 2014-0 No 1mg 5 mg tablet 08-07 00:00: 00 metformin 2014-0 No 1mg 1,000 mg - tablet 00:00: 00 glimepiride 2014-0 No 1mg 4 mg tablet 08-07 00:00: 00 metformin 2014-0 No 1mg 1,000 mg - tablet 00:00: 00 Vistaril 50 2014-0 No 1mg mg capsule 08-07 00:00: 00 Vistaril 50 2014-0 No 1mg mg capsule 08-07 00:00: 00 Lancets & 2013-1 Yes Univers Blood 2-14 ity of Glucose 00:00: [place] Strips (ONE 00 Medical TOUCH Branch COMBO) Cmpk Lancets & 2013- Yes Univers Blood 2-14 ity of Glucose 00:00: [place] Strips (ONE 00 Medical TOUCH Branch COMBO) Cmpk Lancets & 2012- Yes Univers Blood 2-14 ity of Glucose 00:00: [place] Strips (ONE 00 Medical TOUCH Branch COMBO) Cmpk Lancets & 2012- Yes Univers Blood 2-14 ity of Glucose 00:00: [place] Strips (ONE 00 Medical TOUCH Branch COMBO) Cmpk Lancets & 2012- Yes Univers Blood 2-14 ity of Glucose 00:00: [place] Strips (ONE 00 Medical TOUCH Branch COMBO) Cmpk Lancets & 2013- Yes Univers Blood 2-14 ity of Glucose 00:00: [place] Strips (ONE 00 Medical TOUCH Branch COMBO) Cmpk Lancets & 2012- Yes Univers Blood 2-14 ity of Glucose 00:00: [place] Strips (ONE 00 Medical TOUCH Branch COMBO) [facility] Yes Univer s se Meter 6-05 [...] Immunizations Ordered Filled Immunization Date Status Comments [facility] Immunization Name Name Leonarda COVID-19 2021-07-24 Completed Vaccine 00:00:00 Dashawna COVID-19 2021-07-24 Completed Vaccine 00:00:00 Dashawna COVID-19 2021-07-24 Completed Vaccine 00:00:00 Moderna COVID-19 2021-07-24 Completed Vaccine 00:00:00 Moderna COVID-19 2021-07-24 Completed Vaccine 00:00:00 Moderna COVID-19 2021-07-24 Completed Vaccine 00:00:00 Moderna COVID-19 2021-07-24 Completed Vaccine 00:00:00 Moderna COVID-19 2021-07-24 Completed Vaccine 00:00:00 Moderna COVID-19 2021-07-24 Completed Vaccine 00:00:00 Moderna COVID-19 2021-07-24 Completed Vaccine 00:00:00 Moderna COVID-19 2021-07-24 Completed Vaccine 00:00:00 Pneumococcal 2020-05-21 Completed University o f Polysaccharide, 00:00:00 [place] [facility] PPSV23 (PNEUMOVAX) Branch TDAP 2020-05-21 Completed University of 00:00:00 [facility] Pneumococcal 2020-05-21 Completed University o f Polysaccharide, 00:00:00 [place] [facility] PPSV23 (PNEUMOVAX) Branch TDAP 2020-05-21 Completed University of 00:00:00 [facility] Pneumococcal 2020-05-21 Completed University o f Polysaccharide, 00:00:00 [place] [facility] PPSV23 (PNEUMOVAX) Branch TDAP 2020-05-21 Completed University of 00:00:00 [facility] Pneumococcal 2020-05-21 Completed University o f Polysaccharide, 00:00:00 [place] [facility] PPSV23 (PNEUMOVAX) Branch TDAP 2020-05-21 Completed University of 00:00:00 [facility] Pneumococcal 2020-05-21 Completed University o f Polysaccharide, 00:00:00 [place] [facility] PPSV23 (PNEUMOVAX) Branch TDAP 2020-05-21 Completed University of 00:00:00 [facility] Pneumococcal 2020-05-21 Completed University o f Polysaccharide, 00:00:00 [place] [facility] PPSV23 (PNEUMOVAX) Branch TDAP 2020-05-21 Completed University of 00:00:00 [facility] Pneumococcal 2020-05-21 Completed University o f Polysaccharide, 00:00:00 [place] [facility] PPSV23 (PNEUMOVAX) Branch TDAP 2020-05-21 Completed University of 00:00:00 [facility] MMR 2013-07-25 Completed University of 00:00:00 [facility] MMR 2013-07-25 Completed University of 00:00:00 [facility] MMR 2013-07-25 Completed University of 00:00:00 [facility] MMR 2013-07-25 Completed University of 00:00:00 [facility] MMR 2013-07-25 Completed University of 00:00:00 [facility] MMR 2013-07-25 Completed University of 00:00:00 [facility] MMR 2013-07-25 Completed University of 00:00:00 [facility] TDAP 2013-05-21 Completed University of 00:00:00 [facility] TDAP 2013-05-21 Completed University of 00:00:00 [facility] TDAP 2013-05-21 Completed University of 00:00:00 [facility] TDAP 2013-05-21 Completed University of 00:00:00 [facility] TDAP 2013-05-21 Completed University of 00:00:00 [facility] TDAP 2013-05-21 Completed University of 00:00:00 [facility] TDAP 2013-05-21 Completed University of 00:00:00 [facility] Influenza Virus 2013-03-19 Completed Universit y of Vaccine 00:00:00 [facility] Influenza Virus 2013-03-19 Completed Universit y of Vaccine 00:00:00 [facility] Influenza Virus 2013-03-19 Completed Universit y of Vaccine 00:00:00 [facility] Influenza Virus 2013-03-19 Completed Universit y of Vaccine 00:00:00 [facility] Influenza Virus 2013-03-19 Completed Universit y of Vaccine 00:00:00 [facility] Influenza Virus 2013-03-19 Completed Universit y of Vaccine 00:00:00 [facility] Influenza Virus 2013-03-19 Completed Universit y of Vaccine 00:00:00 [facility] Rubella 2008-04-17 Completed University of 00:00:00 [facility] Rubella 2008-04-17 Completed University of 00:00:00 [facility] Rubella 2008-04-17 Completed University of 00:00:00 [facility] Rubella 2008-04-17 Completed University of 00:00:00 [facility] Rubella 2008-04-17 Completed University of 00:00:00 [facility] Rubella 2008-04-17 Completed University of 00:00:00 [facility] Rubella 2008-04-17 Completed University of 00:00:00 [place] [facility] Td 2004-07-11 Completed University of 00:00:00 [facility] Td 2004-07-11 Completed University of 00:00:00 [place] [facility] Td 2004-07-11 Completed University of 00:00:00 [facility] Td 2004-07-11 Completed University of 00:00:00 [facility] Td 2004-07-11 Completed University of 00:00:00 [facility] Td 2004-07-11 Completed University of 00:00:00 [facility] Td 2004-07-11 Completed University of 00:00:00 [facility] Vital Signs Vital Name Observation Time Observation Value Comments Source Systolic blood 2022-06-22 04:59:00 110 mm[Hg] Univer sity of pressure [place] [facility] Diastolic blood 2022-06-22 04:59:00 70 mm[Hg] Unive rsity of pressure [facility] Heart rate 2022-06-22 04:59:00 107 /min Universi ty [facility] Respiratory rate 2022-06-22 04:59:00 22 /min Univ ersity of [facility] Oxygen saturation in 2022-06-22 04:59:00 97 /min University of Arterial blood by [employer] Pulse oximetry Branch Body temperature 2022-06-21 23:26:00 37.28 [facility] height 2022-06-21 23:26:00 162.6 cm [facility] Body weight 2022-06-21 23:26:00 98.431 kg [facility] BMI 2022-06-21 23:26:00 37.25 kg/m2 [facility] Systolic blood 2021-10-17 02:05:00 117 mm[Hg] Univer sity of pressure [place] [facility] Diastolic blood 2021-10-17 02:05:00 63 mm[Hg] Unive rsity of pressure [place] [facility] Heart rate 2021-10-17 02:05:00 76 /min Universi ty [facility] [place] Respiratory rate 2021-10-17 02:05:00 18 /min Univ ersity of [place] [facility] Oxygen saturation in 2021-10-17 02:05:00 98 /min University of Arterial blood by [employer] Pulse oximetry Branch Body temperature 2021-10-16 22:30:00 37.33 Lorenza Univ ersity [facility] [place] [facility] Body weight 2021-10-16 21:38:00 103.42 [...] /min University of Arterial blood by [place] [employer] Pulse oximetry Branch Respiratory rate 2021-09-22 15:00:00 [...] Medical Branch Body temperature 2021-06-18 12:00:00 36.56 Loernza Univ ersity of [place] [facility] Respiratory rate 2021-06-18 12:00:00 13 /min Univ ersity of [place] [facility] Oxygen saturation in 2021-06-18 12:00:00 95 /min University of Arterial blood by [employer] Pulse oximetry Branch Body height 2021-06-18 10:37:00 165.1 cm [facility] [place] [facility] Body weight 2021-06-18 10:37:00 107.502 kg [facility] [place] [facility] BMI 2021-06-18 10:37:00 39.44 kg/m2 [facility] [place] [facility] Systolic blood 2021-05-31 01:34:00 139 mm[Hg] Univer sity of pressure [facility] Diastolic blood 2021-05-31 01:34:00 90 mm[Hg] Unive rsity of pressure [facility] Heart rate 2021-05-31 01:34:00 112 /min Universi ty of [facility] Respiratory rate 2021-05-31 01:34:00 20 /min [facility] Oxygen saturation in 2021-05-31 01:34:00 98 /min [facility] Arterial blood by [facility] Pulse oximetry Branch Body weight 2021-05-30 21:47:00 107.502 kg [facility] BMI 2021-05-30 21:47:00 40.68 kg/m2 [facility] BP Systolic 2022-06-18 10:43:00 118 mm[Hg] BP Diastolic 2022-06-18 10:43:00 82 mm[Hg] Weight Measured 2022-06-18 10:43:00 225.00 pounds Height Measured 2022-06-18 10:43:00 64.00 inches Body Temperature 2022-06-18 10:43:00 98.30 degrees Heart Rate 2022-06-18 10:43:00 110.00 /min Respiratory Rate 2022-06-18 10:43:00 18.00 /min BP Systolic 2022-06-08 09:00:00 BP Diastolic 2022-06-08 09:00:00 Weight Measured 2022-06-08 09:00:00 221.00 pounds Height Measured 2022-06-08 09:00:00 64.00 inches Body Temperature 2022-06-08 09:00:00 Heart Rate 2022-06-08 09:00:00 Respiratory Rate 2022-06-08 09:00:00 BP Systolic 2022-06-02 11:41:00 BP Diastolic 2022-06-02 11:41:00 Weight Measured 2022-06-02 11:41:00 221.00 pounds Height Measured 2022-06-02 11:41:00 64.00 inches Body Temperature 2022-06-02 11:41:00 Heart Rate 2022-06-02 11:41:00 Respiratory Rate 2022-06-02 11:41:00 BP Systolic 2022-04-29 08:10:00 123 mm[Hg] BP Diastolic 2022-04-29 08:10:00 87 mm[Hg] Weight Measured 2022-04-29 08:10:00 236.60 pounds Height Measured 2022-04-29 08:10:00 64.00 inches Body Temperature 2022-04-29 08:10:00 98.90 degrees Heart Rate 2022-04-29 08:10:00 105.00 /min Respiratory Rate 2022-04-29 08:10:00 18.00 /min BP Systolic 2022-04-09 08:09:00 110 mm[Hg] BP [...] 2021-03-23 09:20:00 Procedures Procedure Date / Time Performing Clinician Source Performed POCT GLUCOSE 2022-06-22 03:40:00 Dudley [facility] (AUTOMATED) [facility] BASIC METABOLIC PANEL 2022-06-22 02:40:00 Dudley [facility] (NA, K, CL, CO2, Medical Branch GLUCOSE, BUN, CREATININE, CA) POCT GLUCOSE(AGE 2022-06-22 02:39:00 Dudley [facility] >30DAYS) Medical Branch POCT GLUCOSE 2022-06-22 02:38:00 Dudley [facility] (AUTOMATED) [facility] VBG+VCOOX+NA+K+GLU+CA2+ 2022-06-22 02:08:00 [facility] Branch POCT GLUCOSE 2022-06-22 01:41:00 Dudley [facility] (AUTOMATED) [facility] XR CHEST 2 VW 2022-06-22 00:47:37 Dudley [facility] PHOSPHORUS 2022-06-21 23:49:00 Dudley [facility] MAGNESIUM 2022-06-21 23:49:00 Dudley [facility] TROPONIN I 2022-06-21 23:49:00 Dudley [facility] BASIC METABOLIC PANEL 2022-06-21 23:49:00 Dudley [facility] (NA, K, CL, CO2, Medical Branch GLUCOSE, BUN, CREATININE, CA) CBC WITH DIFF 2022-06-21 23:49:00 Katelyn Buckner [facility] GLYCOSYLATED HEMOGLOBIN 2022-06-21 23:49:00 Katelyn Buckner [facility] (A1C) [facility] URINALYSIS 2022-06-21 23:49:00 Katelyn Buckner [facility] RAPID STREP SCREEN FOR 2022-06-21 23:49:00 Katelyn [facility] GROUP A [facility] RAPID INFLUENZA A/B 2022-06-21 23:49:00 Katelyn Buckner [facility] N-TERMINAL PRO-BNP 2022-06-21 23:49:00 Katelyn Buckner [facility] COVID-19 (ID NOW RAPID 2022-06-21 23:49:00 Katelyn [facility] TESTING) [facility] CONSENT/REFUSAL FOR 2022-06-21 23:19:40 Doctor Unassigned, No Un [facility] DIAGNOSIS AND TREATMENT Name Medical Branch POCT GLUCOSE 2021-10-17 01:49:00 Beatriz Eduardo [facility] (AUTOMATED) [facility] POCT GLUCOSE(AGE 2021-10-17 00:41:00 Beatriz Eduardo [facility] >30DAYS) [facility] POCT GLUCOSE 2021-10-17 00:40:00 Beatriz Eduardo [facility] (AUTOMATED) [facility] BLOOD CULTURE SCREEN 2021-10-16 23:26:00 Beatriz Eduardo [facility] BLOOD CULTURE SCREEN 2021-10-16 23:03:00 Beatriz Eduardo [facility] TROPONIN I 2021-10-16 23:03:00 Beatriz Eduardo [facility] COMP. METABOLIC PANEL 2021-10-16 23:03:00 Beat[facility] ([id number]) [facility] CBC WITH DIFF 2021-10-16 23:03:00 Beatriz Eduardo [facility] URINALYSIS 2021-10-16 23:03:00 Beatriz Eduardo [facility] N-TERMINAL PRO-BNP 2021-10-16 23:03:00 Beatriz Eduardo [facility] LACTIC ACID WHOLE BLOOD 2021-10-16 23:01:00 Beatriz Eduardo [facility] CT ABDOMEN PELVIS WO 2021-10-16 22:40:13 Beatriz Eduardo [facility] POCT TEST 2021-10-16 22:34:00 Beatriz Eduardo [facility] CONSENT/REFUSAL FOR 2021-10-16 21:34:04 [facility] Name [facility] CT ABDOMEN PELVIS WO 2021-09-22 15:59:44 [facility] POCT TEST 2021-09-22 15:18:00 Jn Gallagher [facility] COMP. METABOLIC PANEL 2021-09-22 15:16:00 Singer [facility] ([id number]) [facility] CBC WITH DIFF 2021-09-22 15:16:00 Singer [facility] URINALYSIS 2021-09-22 14:58:00 [facility] CONSENT/REFUSAL FOR 2021-09-22 14:47:03 Doctor [facility]igned[facility] Name [facility] POCT GLUCOSE 2021-06-18 13:04:00 Fozia Jang [facility] (AUTOMATED) [facility] CT ABDOMEN PELVIS WO 2021-06-18 12:58:31 Fozia Jang [facility] POCT TEST 2021-06-18 11:06:00 Fozia Jang [facility] CREATINE KINASE 2021-06-18 10:50:00 Lionel Park [facility] COMP. METABOLIC PANEL 2021-06-18 10:50:00 Fozia [facility]ang [facility] ([id number]) [facility] CBC WITH DIFF 2021-06-18 10:50:00 Fozia Jang [facility] URINALYSIS 2021-06-18 10:50:00 Fozia Jang [facility] RAPID INFLUENZA A/B 2021-06-18 10:50:00 Fozia Jang [facility] COVID-19 (ID NOW RAPID 2021-06-18 10:50:00 Fozia Jang [facility] TESTING) Medical Branch NOTICE OF PRIVACY 2021-06-18 10:24:00 Doctor Unassigned, No [facility] PRACTICES Name [facility] CONSENT/REFUSAL FOR 2021-06-18 10:21:45 Doctor Unassigned, No Un [facility] [place] DIAGNOSIS AND TREATMENT Name [facility] CT ABDOMEN PELVIS W 2021-05-30 23:52:43 Mary Espinosa [facility] CONTRAST [facility] CT HEAD WO CONTRAST 2021-05-30 23:52:13 Mary Espinosa [facility] XR CHEST 1 VW 2021-05-30 22:38:06 Mary Espinosa [place] [facility] XR HAND 3+ VW LEFT 2021-05-30 22:38:06 Mary Espinosa [facility] XR FOREARM 2 VW LEFT 2021-05-30 22:28:08 Mary Espinosa [facility] CONSENT/REFUSAL FOR 2021-05-30 21:39:04 [facility]igned[facility] Name [facility] [id number] Ecg Routine Ecg 2015-12-20 00:00:00 W/least 12 Lds W/i r 83.71 2010-08-05 00:00:00 [facility] 77.98 2010-08-05 00:00:00 [facility] Plan of Care Planned Activity Planned Date Details Comments Source Future Scheduled 2022-06-30 [facility] 13:24:39 (#1) [code = COVID-19 VACCINE (#1)] Future Scheduled 2022-06-30 [facility] Test 13:24:39 screening (procedure) [code = 535530479] Future Scheduled 2022-06-30 Screening for [facility] Test 13:24:39 malignant neoplasm of cervix (procedure) [code = 243640393] Future Scheduled 2022-06-30 BREAST CANCER [facility] Test 13:24:39 SCREENING [code = BREAST CANCER SCREENING] Future Scheduled 2022-06-30 INFLUENZA VACCINE [email or web address] Test 13:24:39 [code = INFLUENZA VACCINE] Future Scheduled 2022-06-30 [facility] 13:24:39 (#1) [code = COVID-19 VACCINE (#1)] Future Scheduled 2022-06-30 [facility] Test 13:24:39 screening (procedure) [code = 879848999] Future Scheduled 2022-06-30 [facility] Test 13:24:39 malignant neoplasm of cervix (procedure) [code = 184626097] Future Scheduled 2022-06-30 BREAST CANCER [facility] Test 13:24:39 SCREENING [code = BREAST CANCER SCREENING] Future Scheduled 2022-06-30 INFLUENZA VACCINE [email or web address] Test 13:24:39 [code = INFLUENZA VACCINE] Future Scheduled 2022-05-12 [facility]IS B [facility] Test 14:10:29 VACCINES (1 of 3 - 3-dose series) [code = HEPATITIS B VACCINES (1 of 3 - 3-dose series)] Future Scheduled 2022-05-12 [facility] 14:10:29 (#1) [code = COVID-19 VACCINE (#1)] Future Scheduled 2022-05-12 [facility] Test 14:10:29 screening (procedure) [code = 223430796] Future Scheduled 2022-05-12 Screening for [facility] Test 14:10:29 malignant neoplasm of cervix (procedure) [code = 665360513] Future Scheduled 2022-05-12 BREAST CANCER [facility] Test 14:10:29 SCREENING [code = BREAST CANCER SCREENING] Future Scheduled 2022-05-12 INFLUENZA VACCINE [email or web address] Test 14:10:29 [code = INFLUENZA VACCINE] Future Scheduled 2022-05-12 [facility] B [facility] 14:10:29 VACCINES (1 of 3 - 3-dose series) [code = HEPATITIS B VACCINES (1 of 3 - 3-dose series)] Future Scheduled 2022-05-12 [facility] 14:10:29 (#1) [code = COVID-19 VACCINE (#1)] Future Scheduled 2022-05-12 [facility] Test 14:10:29 screening (procedure) [code = 239025413] Future Scheduled 2022-05-12 [facility] Test 14:10:29 malignant neoplasm of cervix (procedure) [code = 185853021] Future Scheduled 2022-05-12 BREAST CANCER [facility] Test 14:10:29 SCREENING [code = BREAST CANCER SCREENING] Future Scheduled 2022-05-12 INFLUENZA VACCINE [facility] 14:10:29 [code = INFLUENZA VACCINE] Future Scheduled 2022-05-12 [facility] B [facility] 14:10:29 VACCINES (1 of 3 - 3-dose series) [code = HEPATITIS B VACCINES (1 of 3 - 3-dose series)] Future Scheduled 2022-05-12 [facility] 14:10:29 (#1) [code = COVID-19 VACCINE (#1)] Future Scheduled 2022-05-12 [facility] Test 14:10:29 screening (procedure) [code = 161164378] Future Scheduled 2022-05-12 [facility] Test 14:10:29 malignant neoplasm of cervix (procedure) [code = 674088399] Future Scheduled 2022-05-12 BREAST CANCER [facility] Test 14:10:29 SCREENING [code = BREAST CANCER SCREENING] Future Scheduled 2022-05-12 INFLUENZA VACCINE [email or web address] Test 14:10:29 [code = INFLUENZA VACCINE] Future Scheduled 2022-05-12 [facility]IS B [facility] 14:10:29 VACCINES (1 of 3 - 3-dose series) [code = HEPATITIS B VACCINES (1 of 3 - 3-dose series)] Future Scheduled 2022-05-12 [facility] 14:10:29 (#1) [code = COVID-19 VACCINE (#1)] Future Scheduled 2022-05-12 [facility] Test 14:10:29 screening (procedure) [code = 373969280] Future Scheduled 2022-05-12 [facility] Test 14:10:29 malignant neoplasm of cervix (procedure) [code = 445768444] Future Scheduled 2022-05-12 BREAST CANCER [facility] Test 14:10:29 SCREENING [code = BREAST CANCER SCREENING] Future Scheduled 2022-05-12 [facility]ACCINE [facility] 14:10:29 [code = INFLUENZA VACCINE] Future Scheduled 2022-04-12 [facility] 08:53:27 screening (procedure) [code = 537024637] Future Scheduled 2022-04-12 [facility] Test 08:53:27 malignant neoplasm of cervix (procedure) [code = 292650593] Future Scheduled 2022-04-12 BREAST CANCER [facility] Test 08:53:27 SCREENING [code = BREAST CANCER SCREENING] Future Scheduled 2022-04-12 [facility]ZA [facility]ACCINE [facility] 08:53:27 [code = INFLUENZA VACCINE] Future Scheduled 2022-04-12 [facility] 08:53:27 VACCINES (1 of 3 - 3-dose series) [code = HEPATITIS B VACCINES (1 of 3 - 3-dose series)] Future Scheduled 2022-04-12 COVID-19 VACCINE [facility] Test 08:53:27 (#1) [code = COVID-19 VACCINE (#1)] Future Scheduled 2022-03-16 [facility] 11:35:00 VACCINES (1 of 3 - 3-dose series) [code = HEPATITIS B VACCINES (1 of 3 - 3-dose series)] Future Scheduled 2022-03-16 [facility] (#1) [code = COVID-19 VACCINE (#1)] Future Scheduled 2022-03-16 [facility]atitis [facility] 11:35:00 screening (procedure) [code = 787733104] Future Scheduled 2022-03-16 [facility] Test 11:35:00 malignant neoplasm of cervix (procedure) [code = [id number]] Future Scheduled 2022-03-16 BREAST CANCER [facility] Test 11:35:00 SCREENING [code = BREAST CANCER SCREENING] Future Scheduled 2022-03-16 [facility] [code = INFLUENZA VACCINE] Future Scheduled 2022-03-16 [facility] 11:35:00 VACCINES (1 of 3 - 3-dose series) [code = HEPATITIS B VACCINES (1 of 3 - 3-dose series)] Future Scheduled 2022-03-16 [facility] (#1) [code = COVID-19 VACCINE (#1)] Future Scheduled 2022-03-16 [facility] 11:35:00 screening (procedure) [code = 318772714] Future Scheduled 2022-03-16 Screening for [facility] Test 11:35:00 malignant neoplasm of cervix (procedure) [code = [id number]] Future Scheduled 2022-03-16 BREAST CANCER [facility] Test 11:35:00 SCREENING [code = BREAST CANCER SCREENING] Future Scheduled 2022-03-16 INFLUENZA VACCINE [facility] Test 11:35:00 [code = INFLUENZA VACCINE] Future Scheduled 2022-03-09 [facility] 12:08:14 VACCINES (1 of 3 - 3-dose series) [code = HEPATITIS B VACCINES (1 of 3 - 3-dose series)] Future Scheduled 2022-03-09 COVID-19 VACCINE [facility] Test 12:08:14 (#1) [code = COVID-19 VACCINE (#1)] Future Scheduled 2022-03-09 [facility] Test 12:08:14 screening (procedure) [code = [id number]] Future Scheduled 2022-03-09 Screening for [facility] Test 12:08:14 malignant neoplasm of cervix (procedure) [code = [id number]] Future Scheduled 2022-03-09 BREAST CANCER [facility] Test 12:08:14 SCREENING [code = BREAST CANCER SCREENING] Future Scheduled 2022-03-09 INFLUENZA VACCINE [email or web address] Test 12:08:14 [code = INFLUENZA VACCINE] Future Scheduled 2022-03-09 [facility] 12:08:14 VACCINES (1 of 3 - 3-dose series) [code = HEPATITIS B VACCINES (1 of 3 - 3-dose series)] Future Scheduled 2022-03-09 [facility] 12:08:14 (#1) [code = COVID-19 VACCINE (#1)] Future Scheduled 2022-03-09 [facility] 12:08:14 screening (procedure) [code = [id number]] Future Scheduled 2022-03-09 [facility] Test 12:08:14 malignant neoplasm of cervix (procedure) [code = 126099935] Future Scheduled 2022-03-09 BREAST CANCER [facility] Test 12:08:14 SCREENING [code = BREAST CANCER SCREENING] Future Scheduled 2022-03-09 [facility]ACCINE [facility] 12:08:14 [code = INFLUENZA VACCINE] Future Scheduled 2022-03-09 [facility]IS [facility] 12:08:14 VACCINES (1 of 3 - 3-dose series) [code = HEPATITIS B VACCINES (1 of 3 - 3-dose series)] Future Scheduled 2022-03-09 [facility] 12:08:14 (#1) [code = COVID-19 VACCINE (#1)] Future Scheduled 2022-03-09 [facility] Test 12:08:14 screening (procedure) [code = [id number]] Future Scheduled 2022-03-09 [facility] Test 12:08:14 malignant neoplasm of cervix (procedure) [code = 580845516] Future Scheduled 2022-03-09 BREAST CANCER [facility] Test 12:08:14 SCREENING [code = BREAST CANCER SCREENING] Future Scheduled 2022-03-09 [facility]ZA VACCINE [facility] 12:08:14 [code = INFLUENZA VACCINE] Goal Plan of Care Note [code = 42407-8] Goal Plan of Care Note [code = 49923-2] Goal Plan of Care Note [code = 57328-1] Goal Plan of Care Note [code = 97460-7] Goal Plan of Care Note [code = 73845-8] Goal Plan of Care Note [code = 79644-1] Goal Plan of Care Note [code = 79525-8] Goal Plan of Care Note [code = 74609-6] Goal Plan of Care Note [code = 52636-6] Goal Plan of Care Note [code = 90457-2] Goal Plan of Care Note [code = 10807-6] Goal Plan of Care Note [code = 44251-8] Goal Plan of Care Note [code = 61805-2] Goal Plan of Care Note [code = 71293-7] Goal Plan of Care Note [code = 26456-1] Goal Plan of Care Note [code = 95643-5] Goal Plan of Care Note [code = 77377-4] Goal Plan of Care Note [code = 44320-5] Goal Plan of Care Note [code = 36942-4] Goal Plan of Care Note [code = 53314-2] Goal Plan of Care Note [code = 71508-6] Goal Plan of Care Note [code = 22774-2] Goal Plan of Care Note [code = 73212-7] Goal Plan of Care Note [code = 61024-6] Goal Plan of Care Note [code = 13326-8] Goal Plan of Care Note [code = 31879-2] Goal Plan of Care Note [code = 84732-0] Goal Plan of Care Note [code = 85966-2] Goal Plan of Care Note [code = 74686-9] Goal Plan of Care Note [code = 23943-4] Goal Plan of Care Note [code = 96186-7] Goal Plan of Care Note [code = 41284-2] Goal Plan of Care Note [code = 89972-6] Goal Plan of Care Note [code = 83404-5] Goal Plan of Care Note [code = 81954-1] Goal Plan of Care Note [code = 05637-5] Goal Plan of Care Note [code = 23797-5] Goal Plan of Care Note [code = 60717-7] Goal Plan of Care Note [code = 91423-7] Goal Plan of Care Note [code = 46976-8] Goal Plan of Care Note [code = 79675-2] Goal Plan of Care Note [code = 10520-7] Goal Plan of Care Note [code = 22960-7] Goal Plan of Care Note [code = 75134-7] Goal Plan of Care Note [code = 85685-5] Goal Plan of Care Note [code = 08658-8] Goal Plan of Care Note [code = 47628-1] Goal Plan of Care Note [code = 09545-0] Goal Plan of Care Note [code = 05228-8] Goal Plan of Care Note [code = 55347-1] Goal Plan of Care Note [code = 49098-7] Goal Plan of Care Note [code = 39156-9] Goal Plan of Care Note [code = 51918-7] Goal Plan of Care Note [code = 63422-9] Goal Plan of Care Note [code = 98701-8] Goal Plan of Care Note [code = 64282-6] Goal Plan of Care Note [code = 63835-3] Goal Plan of Care Note [code = 78800-3] Goal Plan of Care Note [code = 96488-1] Goal Plan of Care Note [code = 30328-2] Goal Plan of Care Note [code = 08041-9] Goal Plan of Care Note [code = 18958-5] Goal Plan of Care Note [code = 72713-8] Goal Plan of Care Note [code = 64411-6] Goal Plan of Care Note [code = 88884-6] Goal Plan of Care Note [code = 48033-4] Goal Plan of Care Note [code = 58094-1] Goal Plan of Care Note [code = 72012-5] Goal Plan of Care Note [code = 60426-3] Goal Plan of Care Note [code = 52707-0] Goal Plan of Care Note [code = 99695-3] Goal Plan of Care Note [code = 58918-6] Goal Plan of Care Note [code = 64902-1] Goal Plan of Care Note [code = 96994-0] Goal Plan of Care Note [code = 69915-2] Goal Plan of Care Note [code = 64219-3] Goal Plan of Care Note [code = 50036-1] Goal Plan of Care Note [code = 13847-6] Goal Plan of Care Note [code = 99816-5] Goal Plan of Care Note [code = 21484-9] Goal Plan of Care Note [code = 43039-4] Goal Plan of Care Note [code = 02239-4] Goal Plan of Care Note [code = 49715-3] Goal Plan of Care Note [code = 22622-8] Goal Plan of Care Note [code = 19036-0] Goal Plan of Care Note [code = 83375-1] Goal Plan of Care Note [code = 64006-1] Goal Plan of Care Note [code = 03472-0] Goal Plan of Care Note [code = 69278-2] Goal Plan of Care Note [code = 89909-3] Goal Plan of Care Note [code = 29253-6] Goal Plan of Care Note [code = 64852-7] Goal Plan of Care Note [code = 89072-2] Goal Plan of Care Note [code = 02487-8] Goal Plan of Care Note [code = 02089-9] Goal Plan of Care Note [code = 40933-5] Goal Plan of Care Note [code = 78503-7] Goal Plan of Care Note [code = 79771-1] Goal Plan of Care Note [code = 31835-2] Goal Plan of Care Note [code = 25723-8] Goal Plan of Care Note [code = 62484-6] Goal Plan of Care Note [code = 23643-3] Goal Plan of Care Note [code = 29188-6] Goal Plan of Care Note [code = 05029-5] Goal Plan of Care Note [code = 83034-9] Goal Plan of Care Note [code = 77082-9] Goal Plan of Care Note [code = 00648-1] Goal Plan of Care Note [code = 96710-0] Goal Plan of Care Note [code = 37774-8] Goal Plan of Care Note [code = 34408-9] Goal Plan of Care Note [code = 93161-9] Goal Plan of Care Note [code = 83526-7] Goal Plan of Care Note [code = 80109-0] Goal Plan of Care Note [code = 57162-9] Goal Plan of Care Note [code = 98253-7] Goal Plan of Care Note [code = 33264-9] Goal Plan of Care Note [code = 53193-8] Goal Plan of Care Note [code = 36275-1] Goal Plan of Care Note [code = 14358-9] Goal Plan of Care Note [code = 79788-7] Goal Plan of Care Note [code = 47353-6] Goal Plan of Care Note [code = 69186-6] Goal Plan of Care Note [code = 79839-4] Goal Plan of Care Note [code = 58812-4] Goal Plan of Care Note [code = 74023-6] Goal Plan of Care Note [code = 18566-9] Goal Plan of Care Note [code = 90249-0] Goal Plan of Care Note [code = 51851-5] Goal Plan of Care Note [code = 90328-8] Goal Plan of Care Note [code = 22017-0] Goal Plan of Care Note [code = 39358-5] Goal Plan of Care Note [code = 92776-6] Goal Plan of Care Note [code = 73656-8] Goal Plan of Care Note [code = 34757-3] Goal Plan of Care Note [code = 93994-4] Goal Plan of Care Note [code = 70000-5] Goal Plan of Care Note [code = 34789-6] Goal Plan of Care Note [code = 43445-6] Goal Plan of Care Note [code = 31347-8] Goal Plan of Care Note [code = 36319-0] Goal Plan of Care Note [code = 17036-9] Goal Plan of Care Note [code = 53308-4] Goal Plan of Care Note [code = 76592-2] Goal Plan of Care Note [code = 35688-6] Goal Plan of Care Note [code = 35922-8] Goal Plan of Care Note [code = 93431-3] Goal Plan of Care Note [code = 53690-4] Goal Plan of Care Note [code = 45797-6] Goal Plan of Care Note [code = 38907-0] Goal Plan of Care Note [code = 13053-4] Goal Plan of Care Note [code = 78962-8] Goal Plan of Care Note [code = 63777-7] Goal Plan of Care Note [code = 80872-0] Goal Plan of Care Note [code = 31645-0] Goal Plan of Care Note [code = 28786-9] Goal Plan of Care Note [code = 06821-3] Goal Plan of Care Note [code = 30788-0] Goal Plan of Care Note [code = 44321-4] Goal Plan of Care Note [code = 07578-2] Goal Plan of Care Note [code = 79554-5] Goal Plan of Care Note [code = 78819-6] Goal Plan of Care Note [code = 02518-3] Goal Plan of Care Note [code = 74533-2] Goal Plan of Care Note [code = 32970-5] Goal Plan of Care Note [code = 85639-0] Goal Plan of Care Note [code = 49670-0] Goal Plan of Care Note [code = 80241-9] Goal Plan of Care Note [code = 55728-4] Goal Plan of Care Note [code = 78013-7] Goal Plan of Care Note [code = 29315-0] Goal Plan of Care Note [code = 01207-5] Goal Plan of Care Note [code = 81846-3] Goal Plan of Care Note [code = 11528-9] Goal Plan of Care Note [code = 36683-4] Goal Plan of Care Note [code = 16041-4] Goal Plan of Care Note [code = 40908-2] Goal Plan of Care Note [code = 61134-5] Goal Plan of Care Note [code = 25204-4] Goal Plan of Care Note [code = 90561-4] Goal Plan of Care Note [code = 63422-8] Goal Plan of Care Note [code = 97985-0] Goal Plan of Care Note [code = 00887-7] Goal Plan of Care Note [code = 62663-7] Goal Plan of Care Note [code = 38684-1] Goal Plan of Care Note [code = 92625-3] Goal Plan of Care Note [code = 44650-9] Goal Plan of Care Note [code = 80057-9] Goal Plan of Care Note [code = 85319-1] Goal Plan of Care Note [code = 85871-3] Goal Plan of Care Note [code = 69947-8] Goal Plan of Care Note [code = 01072-1] Goal Plan of Care Note [code = 67654-0] Goal Plan of Care Note [code = 45271-7] Goal Plan of Care Note [code = 83744-1] Goal Plan of Care Note [code = 99662-4] Goal Plan of Care Note [code = 23167-7] Goal Plan of Care Note [code = 12596-9] Goal Plan of Care Note [code = 90541-0] Goal Plan of Care Note [code = 17301-0] Goal Plan of Care Note [code = 28470-5] Goal Plan of Care Note [code = 38737-6] Goal Plan of Care Note [code = 93882-1] Goal Plan of Care Note [code = 50084-6] Goal Plan of Care Note [code = 18375-1] Goal Plan of Care Note [code = 53214-5] Goal Plan of Care Note [code = 48980-9] Goal Plan of Care Note [code = 01923-4] Goal Plan of Care Note [code = 38636-5] Goal Plan of Care Note [code = 02255-7] Goal Plan of Care Note [code = 29273-5] Goal Plan of Care Note [code = 46460-9] Goal Plan of Care Note [code = 75050-3] Goal Plan of Care Note [code = 03842-8] Goal Plan of Care Note [code = 80178-3] Goal Plan of Care Note [code = 45864-9] Goal Plan of Care Note [code = 69494-2] Goal Plan of Care Note [code = 88156-4] Goal Plan of Care Note [code = 97207-9] Goal Plan of Care Note [code = 10618-6] Goal Plan of Care Note [code = 02393-3] Goal Plan of Care Note [code = 87899-1] Goal Plan of Care Note [code = 63978-9] Goal Plan of Care Note [code = 53991-8] Goal Plan of Care Note [code = 04338-4] Goal Plan of Care Note [code = 41151-6] Goal Plan of Care Note [code = 85480-1] Goal Plan of Care Note [code = 25115-6] Goal Plan of Care Note [code = 58228-2] Goal Plan of Care Note [code = 39297-8] Goal Plan of Care Note [code = 75431-3] Goal Plan of Care Note [code = 35426-5] Goal Plan of Care Note [code = 52173-6] Goal Plan of Care Note [code = 43039-1] Goal Plan of Care Note [code = 57292-6] Goal Plan of Care Note [code = 77695-1] Goal Plan of Care Note [code = 35306-8] Goal Plan of Care Note [code = 54607-8] Goal Plan of Care Note [code = 80005-6] Goal Plan of Care Note [code = 75001-3] Goal Plan of Care Note [code = 82211-9] Goal Plan of Care Note [code = 86054-1] Goal Plan of Care Note [code = 19454-0] Goal Plan of Care Note [code = 66366-5] Goal Plan of Care Note [code = 13824-9] Goal Plan of Care Note [code = 55299-1] Goal Plan of Care Note [code = 45663-5] Goal Plan of Care Note [code = 06655-0] Goal Plan of Care Note [code = 83281-8] Goal Plan of Care Note [code = 54894-4] Goal Plan of Care Note [code = 39157-3] Goal Plan of Care Note [code = 27878-7] Goal Plan of Care Note [code = 52104-4] Goal Plan of Care Note [code = 48881-9] Goal Plan of Care Note [code = 78493-5] Goal Plan of Care Note [code = 87887-4] Goal Plan of Care Note [code = 15214-1] Goal Plan of Care Note [code = 25062-9] Goal Plan of Care Note [code = 60194-5] Goal Plan of Care Note [code = 72325-8] Goal Plan of Care Note [code = 76493-3] Goal Plan of Care Note [code = 00335-0] Goal Plan of Care Note [code = 89272-6] Goal Plan of Care Note [code = 84312-7] Goal Plan of Care Note [code = 96550-1] Goal Plan of Care Note [code = 67292-6] Goal Plan of Care Note [code = 23577-2] Goal Plan of Care Note [code = 73593-3] Goal Plan of Care Note [code = 90064-0] Goal Plan of Care Note [code = 71492-5] Goal Plan of Care Note [code = 03743-0] Goal Plan of Care Note [code = 42691-7] Goal Plan of Care Note [code = 67769-3] Goal Plan of Care Note [code = 88870-8] Goal Plan of Care Note [code = 73347-7] Goal Plan of Care Note [code = 77730-6] Goal Plan of Care Note [code = 78679-4] Goal Plan of Care Note [code = 60779-5] Goal Plan of Care Note [code = 88598-3] Goal Plan of Care Note [code = 01614-7] Goal Plan of Care Note [code = 53410-3] Goal Plan of Care Note [code = 63863-6] Goal Plan of Care Note [code = 97302-3] Goal Plan of Care Note [code = 85890-4] Goal Plan of Care Note [code = 57585-4] Goal Plan of Care Note [code = 21734-7] Goal Plan of Care Note [code = 92445-9] Goal Plan of Care Note [code = 33470-3] Goal Plan of Care Note [code = 01183-7] Goal Plan of Care Note [code = 30036-5] Goal Plan of Care Note [code = 19159-8] Goal Plan of Care Note [code = 46685-5] Goal Plan of Care Note [code = 94909-1] Goal Plan of Care Note [code = 53614-1] Goal Plan of Care Note [code = 21126-8] Goal Plan of Care Note [code = 86474-8] Goal Plan of Care Note [code = 44060-9] Goal Plan of Care Note [code = 13770-8] Goal Plan of Care Note [code = 29968-5] Goal Plan of Care Note [code = 26010-6] Goal Plan of Care Note [code = 70401-0] Goal Plan of Care Note [code = 19114-4] Goal Plan of Care Note [code = 87747-3] Goal Plan of Care Note [code = 40475-9] Goal Plan of Care Note [code = 22036-9] Goal Plan of Care Note [code = 67299-3] Goal Plan of Care Note [code = 77198-3] Goal Plan of Care Note [code = 70929-1] Goal Plan of Care Note [code = 61879-5] Goal Plan of Care Note [code = 83118-6] Goal Plan of Care Note [code = 51945-0] Goal Plan of Care Note [code = 78725-9] Goal Plan of Care Note [code = 97376-7] Goal Plan of Care Note [code = 30618-6] Goal Plan of Care Note [code = 92635-8] Goal Plan of Care Note [code = 22288-9] Goal Plan of Care Note [code = 59846-5] Goal Plan of Care Note [code = 55484-4] Goal Plan of Care Note [code = 76516-9] Goal Plan of Care Note [code = 61182-1] Goal Plan of Care Note [code = 54468-0] Goal Plan of Care Note [code = 97815-3] Goal Plan of Care Note [code = 48276-7] Goal Plan of Care Note [code = 47992-3] Goal Plan of Care Note [code = 88757-0] Goal Plan of Care Note [code = 86839-1] Goal Plan of Care Note [code = 12879-2] Goal Plan of Care Note [code = 76648-3] Goal Plan of Care Note [code = 51308-3] Goal Plan of Care Note [code = 60073-4] Goal Plan of Care Note [code = 59487-9] Goal Plan of Care Note [code = 90514-3] Goal Plan of Care Note [code = 04280-7] Goal Plan of Care Note [code = 46834-5] Goal Plan of Care Note [code = 67587-6] Goal Plan of Care Note [code = 28509-6] Goal Plan of Care Note [code = 94049-1] Goal Plan of Care Note [code = 75738-9] Goal Plan of Care Note [code = 34201-2] Goal Plan of Care Note [code = 99088-0] Goal Plan of Care Note [code = 45159-0] Goal Plan of Care Note [code = 26327-3] Goal Plan of Care Note [code = 62001-3] Goal Plan of Care Note [code = 70897-9] Goal Plan of Care Note [code = 67641-6] Goal Plan of Care Note [code = 35585-5] Goal Plan of Care Note [code = 10823-7] Goal Plan of Care Note [code = 69871-3] Goal Plan of Care Note [code = 72975-7] Goal Plan of Care Note [code = 84714-6] Goal Plan of Care Note [code = 86641-6] Goal Plan of Care Note [code = 53568-7] Goal Plan of Care Note [code = 10933-7] Goal Plan of Care Note [code = 33217-7] Goal Plan of Care Note [code = 29268-5] Goal Plan of Care Note [code = 72625-7] Goal Plan of Care Note [code = 29261-2] Goal Plan of Care Note [code = 09081-8] Goal Plan of Care Note [code = 64931-0] Goal Plan of Care Note [code = 44062-3] Goal Plan of Care Note [code = 81630-0] Goal Plan of Care Note [code = 07695-3] Goal Plan of Care Note [code = 72041-6] Goal Plan of Care Note [code = 79562-9] Goal Plan of Care Note [code = 14226-3] Goal Plan of Care Note [code = 88439-5] Goal Plan of Care Note [code = 99240-0] Goal Plan of Care Note [code = 73280-7] Goal Plan of Care Note [code = 93678-7] Goal Plan of Care Note [code = 07167-5] Goal Plan of Care Note [code = 40220-5] Goal Plan of Care Note [code = 32138-4] Goal Plan of Care Note [code = 20912-7] Goal Plan of Care Note [code = 82563-4] Goal Plan of Care Note [code = 83587-1] Goal Plan of Care Note [code = 46687-2] Goal Plan of Care Note [code = 88482-0] Goal Plan of Care Note [code = 50176-4] Goal Plan of Care Note [code = 20317-0] Goal Plan of Care Note [code = 69553-8] Goal Plan of Care Note [code = 01535-2] Goal Plan of Care Note [code = 04573-3] Goal Plan of Care Note [code = 51025-3] Goal Plan of Care Note [code = 84693-7] Goal Plan of Care Note [code = 45934-2] Goal Plan of Care Note [code = 25747-7] Goal Plan of Care Note [code = 10821-9] Goal Plan of Care Note [code = 59549-2] Goal Plan of Care Note [code = 29652-8] Goal Plan of Care Note [code = 24791-9] Goal Plan of Care Note [code = 53304-8] Goal Plan of Care Note [code = 23856-0] Goal Plan of Care Note [code = 04893-8] Goal Plan of Care Note [code = 05348-0] Goal Plan of Care Note [code = 62642-6] Goal Plan of Care Note [code = 08116-3] Goal Plan of Care Note [code = 71669-9] Goal Plan of Care Note [code = 53421-2] Goal Plan of Care Note [code = 24053-6] Goal Plan of Care Note [code = 29159-4] Goal Plan of Care Note [code = 25943-4] Goal Plan of Care Note [code = 42927-2] Goal Plan of Care Note [code = 97818-5] Goal Plan of Care Note [code = 25973-3] Goal Plan of Care Note [code = 95578-7] Goal Plan of Care Note [code = 83544-4] Goal Plan of Care Note [code = 84367-0] Goal Plan of Care Note [code = 47967-6] Goal Plan of Care Note [code = 36375-9] Goal Plan of Care Note [code = 26493-8] Goal Plan of Care Note [code = 10261-7] Goal Plan of Care Note [code = 50759-2] Goal Plan of Care Note [code = 51896-7] Goal Plan of Care Note [code = 94020-0] Goal Plan of Care Note [code = 63671-5] Goal Plan of Care Note [code = 16494-9] Goal Plan of Care Note [code = 01694-1] Goal Plan of Care Note [code = 87743-8] Goal Plan of Care Note [code = 28295-8] Goal Plan of Care Note [code = 29480-7] Goal Plan of Care Note [code = 53857-5] Goal Plan of Care Note [code = 09577-1] Goal Plan of Care Note [code = 66407-7] Goal Plan of Care Note [code = 88721-0] Goal Plan of Care Note [code = 64787-2] Goal Plan of Care Note [code = 84850-4] Goal Plan of Care Note [code = 70453-8] Goal Plan of Care Note [code = 20680-7] Goal Plan of Care Note [code = 20065-4] Goal Plan of Care Note [code = 12202-8] Goal Plan of Care Note [code = 51278-8] Goal Plan of Care Note [code = 43273-5] Goal Plan of Care Note [code = 98221-0] Goal Plan of Care Note [code = 80264-1] Goal Plan of Care Note [code = 69705-5] Goal Plan of Care Note [code = 35439-9] Goal Plan of Care Note [code = 66961-7] Goal Plan of Care Note [code = 83566-6] Goal Plan of Care Note [code = 37759-6] Goal Plan of Care Note [code = 73958-9] Goal Plan of Care Note [code = 54931-0] Goal Plan of Care Note [code = 00968-4] Goal Plan of Care Note [code = 65592-5] Goal Plan of Care Note [code = 46363-1] Goal Plan of Care Note [code = 45934-4] Goal Plan of Care Note [code = 83831-7] Goal Plan of Care Note [code = 29121-3] Goal Plan of Care Note [code = 97751-0] Goal Plan of Care Note [code = 91496-1] Goal Plan of Care Note [code = 80974-7] Goal Plan of Care Note [code = 17514-5] Goal Plan of Care Note [code = 79925-8] Goal Plan of Care Note [code = 62135-2] Goal Plan of Care Note [code = 69177-0] Goal Plan of Care Note [code = 81860-1] Goal Plan of Care Note [code = 33395-6] Goal Plan of Care Note [code = 48216-5] Goal Plan of Care Note [code = 10933-5] Goal Plan of Care Note [code = 08458-8] Goal Plan of Care Note [code = 72187-4] Goal Plan of Care Note [code = 68731-7] Goal Plan of Care Note [code = 13592-4] Goal Plan of Care Note [code = 38652-5] Goal Plan of Care Note [code = 90652-1] Goal Plan of Care Note [code = 88347-8] Goal Plan of Care Note [code = 39625-2] Goal Plan of Care Note [code = 70813-0] Goal Plan of Care Note [code = 48086-0] Goal Plan of Care Note [code = 65219-5] Goal Plan of Care Note [code = 89952-3] Goal Plan of Care Note [code = 91997-5] Goal Plan of Care Note [code = 59880-2] Goal Plan of Care Note [code = 03559-2] Goal Plan of Care Note [code = 17105-3] Goal Plan of Care Note [code = 45432-7] Goal Plan of Care Note [code = 04199-7] Goal Plan of Care Note [code = 10328-5] Goal Plan of Care Note [code = 90602-6] Goal Plan of Care Note [code = 33301-0] Goal Plan of Care Note [code = 41427-3] Goal Plan of Care Note [code = 74617-3] Goal Plan of Care Note [code = 18738-5] Goal Plan of Care Note [code = 21448-2] Goal Plan of Care Note [code = 14888-1] Goal Plan of Care Note [code = 84611-1] Goal Plan of Care Note [code = 22884-1] Goal Plan of Care Note [code = 61904-9] Goal Plan of Care Note [code = 54194-8] Goal Plan of Care Note [code = 39543-2] Goal Plan of Care Note [code = 50615-0] Goal Plan of Care Note [code = 81079-5] Goal Plan of Care Note [code = 55162-8] Goal Plan of Care Note [code = 59708-0] Goal Plan of Care Note [code = 92597-6] Goal Plan of Care Note [code = 88634-6] Goal Plan of Care Note [code = 56889-4] Goal Plan of Care Note [code = 25296-4] Goal Plan of Care Note [code = 26091-0] Goal Plan of Care Note [code = 95001-7] Goal Plan of Care Note [code = 74051-7] Goal Plan of Care Note [code = 55803-7] Goal Plan of Care Note [code = 74349-4] Goal Plan of Care Note [code = 84515-5] Goal Plan of Care Note [code = 64258-1] Goal Plan of Care Note [code = 81810-0] Goal Plan of Care Note [code = 87551-0] Goal Plan of Care Note [code = 10934-8] Goal Plan of Care Note [code = 37244-0] Goal Plan of Care Note [code = 33069-2] Goal Plan of Care Note [code = 52174-1] Goal Plan of Care Note [code = 52005-1] Goal Plan of Care Note [code = 63314-1] Goal Plan of Care Note [code = 29881-7] Goal Plan of Care Note [code = 32504-8] Goal Plan of Care Note [code = 44529-0] Goal Plan of Care Note [code = 72546-6] Goal Plan of Care Note [code = 75716-2] Goal Plan of Care Note [code = 98523-4] Goal Plan of Care Note [code = 72919-6] Goal Plan of Care Note [code = 90661-8] Goal Plan of Care Note [code = 68266-1] Goal Plan of Care Note [code = 20698-9] Goal Plan of Care Note [code = 80406-6] Goal Plan of Care Note [code = 75474-7] Goal Plan of Care Note [code = 51356-0] Goal Plan of Care Note [code = 09432-9] Goal Plan of Care Note [code = 11731-1] Goal Plan of Care Note [code = 20531-0] Goal Plan of Care Note [code = 43331-5] Goal Plan of Care Note [code = 45448-8] Goal Plan of Care Note [code = 09093-9] Goal Plan of Care Note [code = 22432-9] Goal Plan of Care Note [code = 47063-6] Goal Plan of Care Note [code = 36276-4] Goal Plan of Care Note [code = 77767-4] Goal Plan of Care Note [code = 80053-8] Goal Plan of Care Note [code = 51779-4] Goal Plan of Care Note [code = 25950-1] Goal Plan of Care Note [code = 91368-1] Goal Plan of Care Note [code = 69639-1] Goal Plan of Care Note [code = 00616-5] Goal Plan of Care Note [code = 29232-6] Goal Plan of Care Note [code = 04931-6] Goal Plan of Care Note [code = 60798-9] Goal Plan of Care Note [code = 54571-9] Goal Plan of Care Note [code = 51949-7] Goal Plan of Care Note [code = 65319-8] Goal Plan of Care Note [code = 34045-8] Goal Plan of Care Note [code = 58277-3] Goal Plan of Care Note [code = 63671-4] Goal Plan of Care Note [code = 99663-3] Goal Plan of Care Note [code = 46775-0] Goal Plan of Care Note [code = 65107-9] Goal Plan of Care Note [code = 14562-6] Goal Plan of Care Note [code = 88304-7] Goal Plan of Care Note [code = 47424-1] Goal Plan of Care Note [code = 17455-8] Goal Plan of Care Note [code = 96766-9] Goal Plan of Care Note [code = 78208-8] Goal Plan of Care Note [code = 72694-1] Goal Plan of Care Note [code = 21155-9] Goal Plan of Care Note [code = 22987-7] Goal Plan of Care Note [code = 50026-0] Goal Plan of Care Note [code = 03118-5] Goal Plan of Care Note [code = 29808-1] Goal Plan of Care Note [code = 10416-2] Goal Plan of Care Note [code = 87013-7] Goal Plan of Care Note [code = 45080-6] Goal Plan of Care Note [code = 67474-8] Goal Plan of Care Note [code = 46723-5] Goal Plan of Care Note [code = 13354-2] Goal Plan of Care Note [code = 82941-9] Goal Plan of Care Note [code = 93827-5] Goal Plan of Care Note [code = 26938-8] Goal Plan of Care Note [code = 48592-2] Goal Plan of Care Note [code = 38560-4] Goal Plan of Care Note [code = 12373-7] Goal Plan of Care Note [code = 86614-4] Goal Plan of Care Note [code = 80484-9] Goal Plan of Care Note [code = 51541-1] Goal Plan of Care Note [code = 24957-1] Goal Plan of Care Note [code = 38643-4] Goal Plan of Care Note [code = 29623-8] Goal Plan of Care Note [code = 52195-1] Goal Plan of Care Note [code = 99727-8] Goal Plan of Care Note [code = 09547-0] Goal Plan of Care Note [code = 08195-2] Goal Plan of Care Note [code = 07093-8] Goal Plan of Care Note [code = 83899-8] Goal Plan of Care Note [code = 34674-8] Goal Plan of Care Note [code = 34129-4] Goal Plan of Care Note [code = 61222-6] Goal Plan of Care Note [code = 54343-7] Goal Plan of Care Note [code = 10945-2] Goal Plan of Care Note [code = 94396-2] Goal Plan of Care Note [code = 89270-1] Goal Plan of Care Note [code = 66900-0] Goal Plan of Care Note [code = 32936-0] Goal Plan of Care Note [code = 00967-8] Goal Plan of Care Note [code = 52042-0] Goal Plan of Care Note [code = 12003-0] Goal Plan of Care Note [code = 42056-8] Goal Plan of Care Note [code = 45624-0] Goal Plan of Care Note [code = 15412-4] Goal Plan of Care Note [code = 87771-3] Goal Plan of Care Note [code = 93231-5] Goal Plan of Care Note [code = 48754-4] Goal Plan of Care Note [code = 28480-8] Goal Plan of Care Note [code = 39618-0] Goal Plan of Care Note [code = 94500-9] Goal Plan of Care Note [code = 41008-1] Goal Plan of Care Note [code = 12607-2] Goal Plan of Care Note [code = 35575-7] Goal Plan of Care Note [code = 18516-7] Goal Plan of Care Note [code = 87901-5] Goal Plan of Care Note [code = 97883-4] Goal Plan of Care Note [code = 28630-1] Goal Plan of Care Note [code = 19961-3] Goal Plan of Care Note [code = 66409-0] Goal Plan of Care Note [code = 62541-0] Goal Plan of Care Note [code = 01208-3] Goal Plan of Care Note [code = 54659-0] Goal Plan of Care Note [code = 95841-4] Goal Plan of Care Note [code = 76629-9] Goal Plan of Care Note [code = 07768-2] Goal Plan of Care Note [code = 01906-7] Goal Plan of Care Note [code = 86276-8] Goal Plan of Care Note [code = 74149-7] Goal Plan of Care Note [code = 86196-1] Goal Plan of Care Note [code = 78235-1] Goal Plan of Care Note [code = 90723-8] Goal Plan of Care Note [code = 42325-9] Goal Plan of Care Note [code = 19173-0] Goal Plan of Care Note [code = 65697-9] Goal Plan of Care Note [code = 45856-7] Goal Plan of Care Note [code = 38387-1] Goal Plan of Care Note [code = 33810-3] Goal Plan of Care Note [code = 03558-1] Goal Plan of Care Note [code = 36795-7] Goal Plan of Care Note [code = 34115-7] Goal Plan of Care Note [code = 56693-7] Goal Plan of Care Note [code = 75967-2] Goal Plan of Care Note [code = 04284-6] Goal Plan of Care Note [code = 62845-8] Goal Plan of Care Note [code = 23702-8] Goal Plan of Care Note [code = 59194-6] Goal Plan of Care Note [code = 17750-9] Goal Plan of Care Note [code = 09974-6] Goal Plan of Care Note [code = 21958-6] Goal Plan of Care Note [code = 99704-8] Goal Plan of Care Note [code = 25979-1] Goal Plan of Care Note [code = 39543-9] Goal Plan of Care Note [code = 70724-8] Goal Plan of Care Note [code = 12563-0] Goal Plan of Care Note [code = 25254-4] Goal Plan of Care Note [code = 60501-2] Goal Plan of Care Note [code = 56091-9] Goal Plan of Care Note [code = 40473-4] Goal Plan of Care Note [code = 04306-0] Goal Plan of Care Note [code = 80424-6] Goal Plan of Care Note [code = 51431-2] Goal Plan of Care Note [code = 75999-8] Goal Plan of Care Note [code = 37796-8] Goal Plan of Care Note [code = 07463-2] Goal Plan of Care Note [code = 36726-8] Goal Plan of Care Note [code = 61096-6] Goal Plan of Care Note [code = 93773-2] Goal Plan of Care Note [code = 36749-9] Goal Plan of Care Note [code = 96689-0] Goal Plan of Care Note [code = 58202-3] Goal Plan of Care Note [code = 96719-7] Goal Plan of Care Note [code = 45997-3] Goal Plan of Care Note [code = 96210-2] Goal Plan of Care Note [code = 95516-7] Goal Plan of Care Note [code = 53796-8] Goal Plan of Care Note [code = 74496-8] Goal Plan of Care Note [code = 02901-3] Goal Plan of Care Note [code = 60513-5] Goal Plan of Care Note [code = 88283-6] Goal Plan of Care Note [code = 78252-6] Goal Plan of Care Note [code = 12780-4] Goal Plan of Care Note [code = 48601-6] Goal Plan of Care Note [code = 76714-4] Goal Plan of Care Note [code = 33348-5] Goal Plan of Care Note [code = 06455-8] Goal Plan of Care Note [code = 59333-7] Goal Plan of Care Note [code = 35523-1] Goal Plan of Care Note [code = 55434-6] Goal Plan of Care Note [code = 97419-3] Goal Plan of Care Note [code = 65869-0] Goal Plan of Care Note [code = 04862-5] Goal Plan of Care Note [code = 72528-7] Goal Plan of Care Note [code = 77371-2] Goal Plan of Care Note [code = 81889-2] Goal Plan of Care Note [code = 90999-6] Goal Plan of Care Note [code = 06348-6] Goal Plan of Care Note [code = 24749-5] Goal Plan of Care Note [code = 16573-8] Goal Plan of Care Note [code = 33053-7] Goal Plan of Care Note [code = 70768-1] Goal Plan of Care Note [code = 89179-4] Goal Plan of Care Note [code = 86754-2] Goal Plan of Care Note [code = 49485-8] Goal Plan of Care Note [code = 38872-0] Goal Plan of Care Note [code = 77737-8] Goal Plan of Care Note [code = 13352-2] Goal Plan of Care Note [code = 31474-2] Goal Plan of Care Note [code = 82797-0] Goal Plan of Care Note [code = 37200-9] Goal Plan of Care Note [code = 53360-5] Goal Plan of Care Note [code = 44491-5] Goal Plan of Care Note [code = 64344-3] Goal Plan of Care Note [code = 30705-0] Goal Plan of Care Note [code = 66886-1] Goal Plan of Care Note [code = 83254-3] Goal Plan of Care Note [code = 80073-2] Goal Plan of Care Note [code = 77099-0] Goal Plan of Care Note [code = 20372-5] Goal Plan of Care Note [code = 51577-1] Goal Plan of Care Note [code = 05987-0] Goal Plan of Care Note [code = 27778-0] Goal Plan of Care Note [code = 57066-4] Goal Plan of Care Note [code = 31773-2] Goal Plan of Care Note [code = 93844-1] Goal Plan of Care Note [code = 71279-4] Goal Plan of Care Note [code = 11737-3] Goal Plan of Care Note [code = 90096-1] Goal Plan of Care Note [code = 99117-0] Goal Plan of Care Note [code = 62178-3] Goal Plan of Care Note [code = 42626-6] Goal Plan of Care Note [code = 29482-1] Goal Plan of Care Note [code = 74906-2] Goal Plan of Care Note [code = 44440-2] Goal Plan of Care Note [code = 40618-6] Goal Plan of Care Note [code = 95527-9] Goal Plan of Care Note [code = 44299-4] Goal Plan of Care Note [code = 23195-7] Goal Plan of Care Note [code = 34821-6] Goal Plan of Care Note [code = 69193-3] Goal Plan of Care Note [code = 73059-7] Goal Plan of Care Note [code = 48453-4] Goal Plan of Care Note [code = 36902-1] Goal Plan of Care Note [code = 89792-6] Goal Plan of Care Note [code = 68148-6] Goal Plan of Care Note [code = 85313-2] Goal Plan of Care Note [code = 12305-1] Goal Plan of Care Note [code = 62514-7] Goal Plan of Care Note [code = 70538-1] Goal Plan of Care Note [code = 46619-0] Goal Plan of Care Note [code = 10140-3] Goal Plan of Care Note [code = 49463-3] Goal Plan of Care Note [code = 47975-9] Goal Plan of Care Note [code = 42849-1] Goal Plan of Care Note [code = 19715-2] Goal Plan of Care Note [code = 08881-6] Goal Plan of Care Note [code = 84763-4] Goal Plan of Care Note [code = 03241-6] Goal Plan of Care Note [code = 35283-1] Goal Plan of Care Note [code = 05819-2] Goal Plan of Care Note [code = 33073-5] Goal Plan of Care Note [code = 32549-6] Goal Plan of Care Note [code = 96779-8] Goal Plan of Care Note [code = 30573-5] Goal Plan of Care Note [code = 31463-1] Goal Plan of Care Note [code = 63022-4] Goal Plan of Care Note [code = 26331-6] Goal Plan of Care Note [code = 05446-3] Goal Plan of Care Note [code = 21621-8] Goal Plan of Care Note [code = 62633-5] Goal Plan of Care Note [code = 32811-2] Encounters Start End Encounter Admission Attending Care Care Encounter Source Date/Time Date/Time Type Type Clinicians Facility Department ID 2021-05-10 Emergency [facility] [id number] Univers 15:04:50 [facility] 2021-05-08 Emergency [facility] [id number] Univers 16:08:38 [facility] 2020-08-08 Inpatient Bebeto Valderrama [facility] RADI [id number] [facility] 15:30:00 [facility] 2020-08-02 Inpatient HCAT[facility] CARISSA [id number] [facility] 13:01:00 80 [facility] 2020-02-13 Inpatient HCATO CARISSA [id number] [facility] 19:15:00 41 [facility] 2020-01-16 Inpatient EL Lelejocelynn, [facility] SURG [id number] [facility] 16:00:00 Tomiko [facility] 2022-07-09 2022-07-09 Outpatient [facility] [id number] 022 Huang 09:41:12 09:41:12 1230 F Quirino 2022-07-09 2022-07-09 Outpatient 5d50660d- [id number] 9d 93851g-n 00:00:00 00:00:00 Visit a37f-9zj5 40c-4fc9-a -o1gl-388 8bb-636dec jnjg7021y t3900z 2022-06-23 2022-06-23 Outpatient lj3w70dv- [id number] ac 8j34of-0 00:00:00 00:00:00 Visit 8t8l-29e8 s0k-17e2-t -t6l0-a23 1a5-f929uq 0cz4c2362 5w8578 2022-06-21 2022-06-21 Emergency X [facility], [facility] ERT [id number] Univers 17:30:00 23:11:00 KATELYN diaz of [facility] 2022-06-21 2022-06-21 [facility] 1.2.976.399 [id number] Univers 17:30:00 23:11:00 Katelyn BARBER 350.1.13.10 [facility] 4.2.7.2.686 [facility] [id number] [address] 2022-06-18 2022-06-18 Outpatient [facility] 27670-6 022 Huang 10:29:22 10:29:22 1209 F Quirino 2022-06-18 2022-06-18 Outpatient 3dv1vew0- [id number] 3a m0pxo1-w 00:00:00 00:00:00 Visit hh6c-6fr9 s2e-1iw9-q -b775-y10 058-x3730m 87yquk423 sux764 2022-06-17 2022-06-17 Outpatient [facility] [id number] 022 Huang 08:29:59 08:29:59 1208 F Quirino 2022-06-16 2022-06-16 Outpatient SFA [facility] 62639-2 022 Huang 15:41:26 15:41:26 1207 F Quirino 2022-06-16 2022-06-16 Outpatient 4v313n4u- [id number] 2f 394k5x-a 00:00:00 00:00:00 Visit dee3-4499 ee3-4499-9 -917d-e2d 17d-g2l507 41265329t 95986e 2022-06-04 2022-06-04 Outpatient SFA [facility] 12136-1 022 Huang 11:59:44 11:59:44 1125 F Quirino 2022-06-02 2022-06-02 Outpatient 89i61i4l- [id number] 57 z88r9h-2 00:00:00 00:00:00 Visit 756a-4a2e 56a-4a2e-b -q234-d46 549-b8552j 09c3737c1 9815d6 2022-04-29 2022-04-29 Outpatient SFA [facility] 69485-7 022 Huang 08:03:25 08:03:25 1020 F Quirino 2022-04-29 2022-04-29 Outpatient 773uy508- [id number] 49 2yg338-0 00:00:00 00:00:00 Visit 5pu9-3g24 bd7-4b85-9 -940e-c2d 40e-c2dfc3 ld4700027 535853 5389-10-14 2022-04-23 Outpatient kx6j8079- [id number] bf 2g2997-j 00:00:00 00:00:00 Visit tu25-0hxc d88-1vbh-7 -924a-d01 24a-d01f5f s9p3gf34k 4eb17f 2022-04-09 2022-04-09 Outpatient SFA [facility] 11666-8 022 Huang 08:02:18 08:02:18 0930 F Quirino 2022-04-09 2022-04-09 Outpatient q3k38664- [id number] c2 n62112-2 00:00:00 00:00:00 Visit 5b89-26e9 d32-06j3-4 -8750-031 750-0319bb 7ayrr8827 zx9661 2022-03-29 2022-03-29 Outpatient [id number]- [id number] 11 686687-b 00:00:00 00:00:00 Visit o901-51f6 701-46a9-a -t3z1-n44 5p4-p71224 7168v53b7 3d26f8 2022-03-16 2022-03-16 Telephone [facility], 1.2.840.1 [id number] 2099 [id number] Methodi 00:00:00 00:00:[address] Dew[facility] 3.430.2.7 Hospit a Arik .3.918005 l .8 2022-03-16 2022-03-16 [facility] 1.2.840.1 [id number] 2099 747461 Methodi 00:00:00 00:00:[address] Dewi 3.430.2.7 Hospit a Arik .3.812180 l .8 2022-03-11 2022-03-11 [facility] 1.2.840.1 [id number] Methodi 00:00:00 00:00:[address] Dewi 3.430.2.7 Hospit a Arik .3.575135 l .8 2022-03-11 2022-03-11 [facility] 1.2.840.1 [id number] 2099 802558 Methodi 00:00:00 00:00:[address] Dewi 3.430.2.7 Hospit a Arik .3.934790 l .8 2022-03-09 2022-03-09 Outpatient y3k81924- [id number] d6 t68936-j 00:00:00 00:00:00 Visit m10x-664f 56a-450d-9 -9m9d-84o x0j-90v351 142x69633 k96403 2022-01-20 2022-01-20 Outpatient 9qu85xuo- [id number] 0f y61pwc-2 00:00:00 00:00:00 Visit 8baf-464d baf-464d-a -i05x-336 91e-55296s 13wjuz43f aeb84a 2021-10-16 2021-10-16 [facility] [id number] Univers 16:39:00 22:23:00 BEATRIZ diaz [facility] 2021-10-16 2021-10-16 [facility] 1.2.871.904 [id number] Univers 16:39:00 22:23:00 Beatriz ALMONTERAMIRO 350.1.13.10 ity [facility] 4.2.7.2.686 [facility] [id number] [address] 2021-09-22 2021-09-22 Emergency X [facility] ERT [id number] Univers 09:56:00 12:05:00 JN diaz [facility] 2021-09-22 2021-09-22 [facility] 1.2.282.075 [id number] Univers 09:56:00 12:05:00 Jn BARBER 350.1.13.10 i ty [facility] 4.2.7.2.686 [facility] [id number] [address] 2021-08-20 2021-08-20 [facility] 1.2.840.114 [id number] Univers 00:00:00 00:00:00 [facility] 350.1.13.10 it y kristyn HERSEY 4.2.7.2.686 Blake as DANIELITO?BLEA [phone] Nv bimal [address] MEDICAL OFFICE BUILDING 2021-07-31 2021-07-31 Outpatient [facility] Y000 [id number] [facility] 05:47:00 05:47:00 00 [facility] 2021-06-18 2021-06-18 [facility] [id number] Univers 04:31:00 08:25:00 FOZIA diaz [facility] 2021-06-18 2021-06-18 [facility] 1.2.566.332 [id number] Univers 04:31:00 08:25:00 Fozia [facility] 350.1.13.10 ity [facility] 4.2.7.2.686 [facility] [id number] [address] 2021-06-10 2021-06-10 Outpatient [facility] [id number] [address] [place] 00:00:00 00:00:[address] 2021-06-10 2021-06-10 Travel 1.2.840.1 1.2.089.734 7003 [id number] Methodi 00:00:00 00:00:[address] 3.430.2.7 0.2.7.3.698 Ho spita .3.796589 084.8 l .8 2021-06-08 2021-06-08 Telephone Antalber, 1.2.840.1 [id number] 2099 [id number] Methodi 00:00:00 00:00:[address] Dewi 3.430.2.7 Hospit a Arik .3.841533 l .8 2021-05-30 2021-05-30 Emergency X [facility] ERT [id number] Univers 15:49:00 19:42:00 MARY [facility] 2021-05-30 2021-05-30 Emergency [facility] 1.2.741.159 [id number] [id number] Univers 15:49:00 19:42:00 Mary Mota SUNIL 350.1.13.10 i ty of [place] 4.2.7.2.686 [facility] [id number] [address] 2021-03-17 2021-03-17 [facility] 1.2.306.999 2330 3631 Univers 00:00:00 00:00:00 Doron Barber 350.1.13.10 i ty of [place] 4.2.7.2.686 [facility] Professio [id number] [facility] 220 [facility] 2021-02-27 2021-02-27 Outpatient R DONNA [facility] [id number] Univers 15:00:00 15:00:00 DORON diaz [facility] 2020-12-23 2020-12-23 Outpatient R ROBBIE, [facility] [id number] Univers 16:00:00 16:00:00 FABIO isaac [facility] 2020-12-10 2020-12-10 Outpatient R LISA, [facility] [id number] Univers 09:00:00 09:53:04 BRYSON [facility] 2020-12-02 2020-12-04 Outpatient X LAINE, [facility] [id number] Univers 19:53:00 17:23:00 FOZIA [facility] 2020-11-07 2020-11-07 Outpatient R THOMPSON, [facility] [id number] Univers 13:30:00 13:30:00 DORON [facility] 2020-06-02 2020-06-02 Telephone [facility] 1.2.840.114 [id number] 00:00:00 00:00:00 Lily Barber 350.1.13.10 [place] 4.2.7.2.686 Professisabelle [id number] [address] 2020-05-29 2020-05-29 [id number] [id number] Univers 15:15:00 15:15:00 LESLEE [facility] 2020-05-27 2020-05-27 Office [facility] 1.2.800.237 [id number] 10:59:24 11:54:17 Visit Lily Barber 350.1.13.10 [place] 4.2.7.2.686 Professisabelle [id number] [address] 2020-05-27 2020-05-27 [facility] [id number] Univers 10:45:00 10:45:00 LILY [facility] 2020-05-27 2020-05-27 Orders Doctor JACOBS 1.2.840.114 [id number] 00:00:00 00:00:00 Only Unassigned, BENITA 350.1.13.10 [place] [facility] 4.2.7.2.686 [id number] 009 2020-01-10 2020-01-10 Outpatient TIANA Wilson LABO [id number] [facility] 18:46:00 18:46:00 Tomiko 24 [facility] 2020-01-04 2020-01-04 Outpatient DINAH Wilson [facility] [id number] [facility] 13:00:00 13:00:00 Tomiko 18 [facility] 2019-12-12 2019-12-12 Outpatient Anupama SUN, [facility] [id number] Univers 16:30:00 16:30:00 STANISLAW isaac [facility] 2019-12-07 2019-12-07 Outpatient Anupama THOMPSON, [facility] [id number] [facility] 09:00:00 09:00:00 DORON [facility] 2019-11-22 2019-11-22 Outpatient ANTOSH, [facility] [id number] [address] [place] 00:00:00 00:00:00 SILVINA 303 [place] [address] 2019-11-06 2019-11-06 Outpatient ANTOSH, [facility] [id number] [address] [place] 00:00:00 00:00:00 SILVINA 632 [place] 2019-11-01 2019-11-01 Outpatient ANTOSH, [facility] [id number] [address] [place] 00:00:00 00:00:00 SILVINA 554 [place] 2019-10-30 2019-10-30 Outpatient GALAN, [facility] [id number] [address] [place] 00:00:00 00:00:00 ABHIJIT 714 Method i 2019-10-18 2019-10-18 Outpatient ANTOSH, [facility] [id number] [address] [place] 00:00:00 00:00:00 SILVINA 629 Meth[facility] di 2019-10-02 2019-10-02 Outpatient ANTOSH, [facility] [id number] [address] [place] 00:00:00 00:00:00 SILVINA 105 Meth[facility] di 2019-10-01 2019-10-01 Outpatient ANTOSH, [facility] [id number] [address] [place] 00:00:00 00:00:00 SILVINA [address] 2019-09-19 2019-09-19 Outpatient ANTOSH, [facility] [id number] [address] [place] 00:00:00 00:00:00 SILVINA [address] 2019-09-11 2019-09-11 [facility] [id number] 591 [facility] 10:30:00 10:30:00 STANISLAW [facility] 2019-09-10 2019-09-10 Outpatient ANGELIA [facility] [id number] [address] [place] 00:00:00 00:00:00 ABHIJIT 420 [facility] i 2019-09-10 2019-09-10 Outpatient ERNST [facility] [id number] [address] [place] 00:00:00 00:00:00 SILVINA 373 Metho di 2019-09-10 2019-09-10 Outpatient ERNST [facility] [id number] [address] [place] [address] 00:00:00 00:00:00 SILVINA 354 [address] di 2019-08-23 2019-08-23 Outpatient R ADRIENNE, [facility] [id number] [facility] 16:15:00 10:31:44 [facility] 2019-08-15 2019-08-15 Outpatient R ADRIENNE [facility] [id number] [facility] 09:15:00 09:44:35 [facility] 2019-07-07 2019-07-07 Emergency X YARIMA, [facility] ERT [id number] [address] [employer] 10:13:53 13:06:00 FOZIA [facility] 2010-08-05 2010-08-07 Inpatient OUTP Kit Lopez [facility] [id number] [facility] 16:20:00 14:00:00 00 [facility] Results Test Description Test Time Test Comments Results Result Comments Source Basic Metabolic Panel (Na, K, Cl, CO2, Glucose, BUN, 2022-06 03:47:00 Creatinine, Ca) Test Item Value Reference Range Interpretation Comme nts NA (test code = 9390629361) 136 mmol/L 135-145 K (test code = 4519093774) 3.8 mmol/L 3.5-5.0 CL (test code = 0024786176) 97 mmol/L 98-108 L CO2 TOTAL (test code = 4587343500) 24 mmol/L 23-31 AGAP (test code = 6915088255) 2-16 BUN (test code = 8128643386) 34 mg/dL 7-23 H GLUCOSE (test code = 0561621793) 270 mg/dL 70-110 H CREATININE (test code = 0.93 mg/dL 0.50-1.04 1320069867) CALCIUM (test code = 6542834142) 10.6 mg/dL 8.6-10.6 eGFR (test code = 5047478147) mL/min/1.73m2 CALVIN (test code = CALVIN) Association of Glomerular Filtration Rate (GFR) and Staging of Kidney Disease* + +-------- + ------+| GFR (mL/min/1.73 m2) ?| With Kidney Damage ?| ?Without Kidney Damage+ +-- + +| ?>90 ?| ?Stage one ?| ? Normal ?+ +------- + -------+| ?60-89 ?| ?Stage two ?| ? Decreased GFR ? + +-------- + ------+| ?30-59 ?| ?Stage three ?| ? Stage three ? + +-------- + ------+| ?15-29 ?| ?Stage four ? | ? Stage four ?+ +------- + -------+| ?<15 (or dialysis) ? ?| ?Stage five ? | ? Stage five ?+ +------- + -------+ *Each stage assumes the associated GFR [...] or abnormalities in imaging tests). Lab Interpretation (test code = Abnormal 25125-1) [facility] 03:46:00 Test Item Value Reference Range Interpretation Comments POCT GLU (test code = 1712514177) 256 mg/dL 70-110 H Lab Interpretation (test code = Abnormal 98062-6) [facility] Hemoglobin (A1C)2022-06-22 03:08:04 Test Item Value Reference Range Interpretation Comments HGB A1C (test code = 12.0 % 4.0-5.7 H 4548-4) CALVIN (test code = CALVIN) Reference RangesNormal: <5.7%Prediabetes: 5.7 - 6.4%Diabetes: > 6.5% Lab Interpretation (test Abnormal code = 06692-2) [facility] GLUCOSE (AUTOMATED)2022-06-22 02:44:02 Test Item Value Reference Range Interpretation Comments POCT GLU (test code = 3070332389) 265 mg/dL 70-110 H Lab Interpretation (test code = Abnormal 54274-3) [facility] GLUCOSE(AGE >30DAYS)2022-06-22 02:39:00 Test Item Value Reference Range Interpretation Comments POCT Glu (age>30days) (test code = 265 mg/dL 70-110 A 3342) Lab Interpretation (test code = Abnormal 30651-8) [facility] [id number] 02:25:21 Test Item Value Reference Range Interpretation Comments MAGNESIUM (test code = 4675584764) 1.5 mg/dL 1.7-2.4 L Lab Interpretation (test code = Abnormal 54913-5) [facility] [id number] 02:25:01 Test Item Value Reference Range Interpretation Comments PHOSPHORUS (test code = 5097824311) 5.7 mg/dL 2.5-5.0 H Lab Interpretation (test code = Abnormal 06492-6) [facility] GLUCOSE (AUTOMATED)2022-06-22 01:44:15 Test Item Value Reference Range Interpretation Comments POCT GLU (test code = 3571146128) 298 mg/dL 70-110 H Lab Interpretation (test code = Abnormal 35253-2) [facility] WITH [id number] 01:28:41 Test Item Value Reference Range Interpretation Comments WBC (test code = See_Comment [Automated 6690-2) message] The sy stem which generated this result transmitted reference range : 4.30 - 11.10 10*3/?L. The reference range was not used to interpret this result as normal/abnormal . RBC (test code = See_Comment H [Automated 719-8) message] The sy stem which generated this result transmitted reference range : 3.93 - 5.25 10*6/?L. The reference range was not used to interpret this result as normal/abnormal . HGB (test code = 15.0 g/dL 11.6-15.0 718-7) HCT (test code = 44.4 % 35.7-45.2 4544-3) MCV (test code = 81.9 fL 80.6-95.5 787-2) MCH (test code = 27.7 pg 25.9-32.8 785-6) MCHC (test code = 33.8 g/dL 31.6-35.1 786-4) RDW-SD (test code = 37.1 fL 39.0-49.9 L 92391-1) RDW-CV (test code = 12.5 % 12.0-15.5 788-0) PLT (test code = See_Comment [Automated 777-3) message] The sy stem which generated this result transmitted reference range : 166 - 358 10*3/ ?L. The reference r doretha was not used to interpret this result as normal/abnormal . MPV (test code = 9.9 fL 9.5-12.9 90240-5) NRBC/100 WBC (test See_Comment [Automat ed code = 1567112533) message] The system which generated this result transmitted reference range : 0.0 - 10.0 /100 WBCs. The refer ence range was not u sed to interpret th is result as normal/abnormal . NRBC x10^3 (test code See_Comment [Auto mated = 1108172056) message] The s ystem which generated this result transmitted reference range : 10*3/?L. The reference range was not used to interpret this result as normal/abnormal . GRAN MAT (NEUT) % 40.5 % (test code = 770-8) IMM GRAN % (test code 0.90 % = 5261865892) LYMPH % (test code = 48.0 % 736-9) MONO % (test code = 8.5 % 5905-5) EOS % (test code = 1.1 % 713-8) BASO % (test code = 1.0 % 706-2) GRAN MAT x10^3(ANC) 4.35 10*3/uL 1.88-7.09 (test code = 4160240630) IMM GRAN x10^3 (test 0.10 10*3/uL 0.00-0.06 H code = 5519208016) LYMPH x10^3 (test code 5.17 10*3/uL 1.32-3.29 H = 731-0) MONO x10^3 (test code 0.92 10*3/uL 0.33-0.92 = 742-7) EOS x10^3 (test code = 0.12 10*3/uL 0.03-0.39 711-2) BASO x10^3 (test code 0.11 10*3/uL 0.01-0.07 H = 704-7) Lab Interpretation Abnormal (test code = 51709-3) [facility] CenterTR[facility] [id number] 00:34:27 Test Item Value Reference Interpretation Comments Range TROPONIN I (test 0.000 ng/mL See_Comment [Automated code = 5892887686) message] The system which generated this result [...] biotin. Lab Interpretation Normal (test code = 32582-5) [facility] CenterN-TERMINAL [id number] 00:31:09 Test Item Value Reference Range Interpretation Comments NT-proBNP (test code 21 pg/mL See_Comment [Autom ated = 9472036230) message] The system which generated this result transmitted reference range : <=125. The reference range was not used to interpret this result as normal/abnormal . CALVIN (test code = CALVIN) Biotin has been reported to cause a negative bias, interpret results relative to patient's use of biotin. Lab Interpretation Normal (test code = 57029-9) [facility] METABOLIC PANEL (NA, K, CL, CO2, GLUCOSE, BUN, CREATININE, CA)2022-06-22 00:22:03 Test Item Value Reference Range Interpretation Comments NA (test code = 133 mmol/L 135-145 L 8693324460) K (test code = 4.7 mmol/L 3.5-5.0 7449176215) CL (test code = 91 mmol/L 98-108 L 1166880488) CO2 TOTAL (test code = 24 mmol/L 23-31 6924596133) AGAP (test code = 2-16 H 4579590679) BUN (test code = 37 mg/dL 7-23 H 7055015422) GLUCOSE (test code = 385 mg/dL 70-110 H 2869849091) CREATININE (test code = 1.09 mg/dL 0.50-1.04 H 7453108593) CALCIUM (test code = 11.5 mg/dL 8.6-10.6 H 6146883323) eGFR (test code = mL/min/1.73m2 3586629166) CALVIN (test code = CALVIN) Association of [...] tests). Lab Interpretation Abnormal (test code = 17775-0) [facility] MET[facility] [id number] 00:00:00 Test Item Value Reference Range Interpretation Comments GLUCOSE (test code = 2217) 259 MG/DL BUN (test code = 2208) 17 MG/DL CREATININE (test code = 2214) 0.72 MG/DL eGFR (2020 CKD-EPI) (test 106 ML/MIN/1.73 code = 09730) CALC BUN/CREAT (test code = 24 RATIO 2235) SODIUM (test code = 2231) 137 MEQ/L POTASSIUM (test code = 2228) 4.6 MEQ/L CHLORIDE (test code = 2215) 100 MEQ/L CARBON DIOXIDE (test code = 23 MEQ/L 220) CALCIUM (test code = 2209) 9.7 MG/DL PROTEIN, TOTAL (test code = 7.5 G/DL 2228) ALBUMIN (test code = 2201) 4.7 G/DL CALC GLOBULIN (test code = 2.8 G/DL 2240) CALC A/G RATIO (test code = 1.7 RATIO 2233) BILIRUBIN, TOTAL (test code = 0.3 MG/DL 2206) ALKALINE PHOSPHATASE (test 61 U/L code = 2204) AST (test code = 2218) 22 U/L ALT (test code = 2219) 38 U/L COMPREHENSIVE METABOLIC [id number] 00:00:00 Test Item Value Reference Range Interpretation Comments GLUCOSE (test code = 2217) 259 MG/DL BUN (test code = 2208) 17 MG/DL CREATININE (test code = 2214) 0.72 MG/DL eGFR (2020 CKD-EPI) (test 106 ML/MIN/1.73 code = 41182) CALC BUN/CREAT (test code = 24 RATIO 2235) SODIUM (test code = 2231) 137 MEQ/L POTASSIUM (test code = 2228) 4.6 MEQ/L CHLORIDE (test code = 2215) 100 MEQ/L CARBON DIOXIDE (test code = 23 MEQ/L 2206) CALCIUM (test code = 2209) 9.7 MG/DL PROTEIN, TOTAL (test code = 7.5 G/DL 2228) ALBUMIN (test code = 2201) 4.7 G/DL CALC GLOBULIN (test code = 2.8 G/DL 0) CALC A/G RATIO (test code = 1.7 RATIO 2234) BILIRUBIN, TOTAL (test code = 0.3 MG/DL 2206) ALKALINE PHOSPHATASE (test 61 U/L code = 2204) AST (test code = 2218) 22 U/L ALT (test code = 2219) 38 U/L LIPID [id number] 00:00:00 Test Item Value Reference Range Interpretation Comments CHOLESTEROL (test code = 2210) 196 MG/DL TRIGLYCERIDES (test code = 2232) 500 MG/DL HDL CHOLESTEROL (test code = 31 MG/DL 2220) CALC LDL CHOL (test code = 2237) (NOTE) MG/DL RISK RATIO LDL/HDL (test code = (NOTE) RATIO 2238) LIPID [id number] 00:00:00 Test Item Value Reference Range Interpretation Comments CHOLESTEROL (test code = 2210) 196 MG/DL TRIGLYCERIDES (test code = 2232) 500 MG/DL HDL CHOLESTEROL (test code = 31 MG/DL 2220) CALC LDL CHOL (test code = 2237) (NOTE) MG/DL RISK RATIO LDL/HDL (test code = (NOTE) RATIO 2238) HEMOGLOBIN [id number] 00:00:00 Test Item Value Reference Range Interpretation Comments HEMOGLOBIN A1c (test code = 43069) 11.0 % HEMOGLOBIN [id number] 00:00:00 Test Item Value Reference Range Interpretation Comments HEMOGLOBIN A1c (test code = 46074) 11.0 % HEMOGLOBIN [id number] 00:00:00 Test Item Value Reference Range Interpretation Comments HEMOGLOBIN A1c (test code = 77739) 11.0 % COMPREHENSIVE METABOLIC [id number] 00:00:00 Test Item Value Reference Range Interpretation Comments GLUCOSE (test code = 2217) 259 MG/DL BUN (test code = 2208) 17 MG/DL CREATININE (test code = 2214) 0.72 MG/DL eGFR (2020 CKD-EPI) (test 106 ML/MIN/1.73 code = 82462) CALC BUN/CREAT (test code = 24 RATIO 2235) SODIUM (test code = 2231) 137 MEQ/L POTASSIUM (test code = 2228) 4.6 MEQ/L CHLORIDE (test code = 2215) 100 MEQ/L CARBON DIOXIDE (test code = 23 MEQ/L 220) CALCIUM (test code = 2209) 9.7 MG/DL PROTEIN, TOTAL (test code = 7.5 G/DL 2228) ALBUMIN (test code = 2201) 4.7 G/DL CALC GLOBULIN (test code = 2.8 G/DL 2240) CALC A/G RATIO (test code = 1.7 RATIO 2234) BILIRUBIN, TOTAL (test code = 0.3 MG/DL 2206) ALKALINE PHOSPHATASE (test 61 U/L code = 2204) AST (test code = 2218) 22 U/L ALT (test code = 2219) 38 U/L COMPREHENSIVE METABOLIC [id number] 00:00:00 Test Item Value Reference Range Interpretation Comments GLUCOSE (test code = 2217) 259 MG/DL BUN (test code = 2208) 17 MG/DL CREATININE (test code = 2214) 0.72 MG/DL eGFR (2020 CKD-EPI) (test 106 ML/MIN/1.73 code = 26814) CALC BUN/CREAT (test code = 24 RATIO 2235) SODIUM (test code = 2231) 137 MEQ/L POTASSIUM (test code = 2228) 4.6 MEQ/L CHLORIDE (test code = 2215) 100 MEQ/L CARBON DIOXIDE (test code = 23 MEQ/L 2205) CALCIUM (test code = 2209) 9.7 MG/DL PROTEIN, TOTAL (test code = 7.5 G/DL 2228) ALBUMIN (test code = 2201) 4.7 G/DL CALC GLOBULIN (test code = 2.8 G/DL 2240) CALC A/G RATIO (test code = 1.7 RATIO 2234) BILIRUBIN, TOTAL (test code = 0.3 MG/DL 2206) ALKALINE PHOSPHATASE (test 61 U/L code = 2204) AST (test code = 2218) 22 U/L ALT (test code = 2219) 38 U/L LIPID [id number] 00:00:00 Test Item Value Reference Range Interpretation Comments CHOLESTEROL (test code = 2210) 196 MG/DL TRIGLYCERIDES (test code = 2232) 500 MG/DL HDL CHOLESTEROL (test code = 31 MG/DL 2219) CALC LDL CHOL (test code = 2237) (NOTE) MG/DL RISK RATIO LDL/HDL (test code = (NOTE) RATIO 2238) LIPID [id number] 00:00:00 Test Item Value Reference Range Interpretation Comments CHOLESTEROL (test code = 2210) 196 MG/DL TRIGLYCERIDES (test code = 2232) 500 MG/DL HDL CHOLESTEROL (test code = 31 MG/DL 2220) CALC LDL CHOL (test code = 2237) (NOTE) MG/DL RISK RATIO LDL/HDL (test code = (NOTE) RATIO 2238) HEMOGLOBIN [id number] 00:00:00 Test Item Value Reference Range Interpretation Comments HEMOGLOBIN A1c (test code = 57270) 11.0 % HEMOGLOBIN [id number] 00:00:00 Test Item Value Reference Range Interpretation Comments HEMOGLOBIN A1c (test code = 13156) 11.0 % HEMOGLOBIN [id number] 00:00:00 Test Item Value Reference Range Interpretation Comments HEMOGLOBIN A1c (test code = 58317) 11.0 % COMPREHENSIVE METABOLIC [id number] 00:00:00 Test Item Value Reference Range Interpretation Comments GLUCOSE (test code = 2217) 259 MG/DL BUN (test code = 2208) 17 MG/DL CREATININE (test code = 2214) 0.72 MG/DL eGFR (2020 CKD-EPI) (test 106 ML/MIN/1.73 code = 07793) CALC BUN/CREAT (test code = 24 RATIO 2235) SODIUM (test code = 2231) 137 MEQ/L POTASSIUM (test code = 2228) 4.6 MEQ/L CHLORIDE (test code = 2215) 100 MEQ/L CARBON DIOXIDE (test code = 23 MEQ/L 2205) CALCIUM (test code = 2209) 9.7 MG/DL PROTEIN, TOTAL (test code = 7.5 G/DL 2228) ALBUMIN (test code = 2201) 4.7 G/DL CALC GLOBULIN (test code = 2.8 G/DL 0) CALC A/G RATIO (test code = 1.7 RATIO 2234) BILIRUBIN, TOTAL (test code = 0.3 MG/DL 2206) ALKALINE PHOSPHATASE (test 61 U/L code = 2204) AST (test code = 2218) 22 U/L ALT (test code = 2219) 38 U/L COMPREHENSIVE METABOLIC [id number] 00:00:00 Test Item Value Reference Range Interpretation Comments GLUCOSE (test code = 2217) 259 MG/DL BUN (test code = 2208) 17 MG/DL CREATININE (test code = 2214) 0.72 MG/DL eGFR (2020 CKD-EPI) (test 106 ML/MIN/1.73 code = 42804) CALC BUN/CREAT (test code = 24 RATIO 2235) SODIUM (test code = 2231) 137 MEQ/L POTASSIUM (test code = 2228) 4.6 MEQ/L CHLORIDE (test code = 2215) 100 MEQ/L CARBON DIOXIDE (test code = 23 MEQ/L 2205) CALCIUM (test code = 2209) 9.7 MG/DL PROTEIN, TOTAL (test code = 7.5 G/DL 2228) ALBUMIN (test code = 2201) 4.7 G/DL CALC GLOBULIN (test code = 2.8 G/DL 2239) CALC A/G RATIO (test code = 1.7 RATIO 2234) BILIRUBIN, TOTAL (test code = 0.3 MG/DL 2206) ALKALINE PHOSPHATASE (test 61 U/L code = 2204) AST (test code = 2218) 22 U/L ALT (test code = 2219) 38 U/L LIPID [id number] 00:00:00 Test Item Value Reference Range Interpretation Comments CHOLESTEROL (test code = 2210) 196 MG/DL TRIGLYCERIDES (test code = 2232) 500 MG/DL HDL CHOLESTEROL (test code = 31 MG/DL 2220) CALC LDL CHOL (test code = 2237) (NOTE) MG/DL RISK RATIO LDL/HDL (test code = (NOTE) RATIO 2238) LIPID [id number] 00:00:00 Test Item Value Reference Range Interpretation Comments CHOLESTEROL (test code = 2210) 196 MG/DL TRIGLYCERIDES (test code = 2232) 500 MG/DL HDL CHOLESTEROL (test code = 31 MG/DL 2220) CALC LDL CHOL (test code = 2237) (NOTE) MG/DL RISK RATIO LDL/HDL (test code = (NOTE) RATIO 2238) HEMOGLOBIN [id number] 00:00:00 Test Item Value Reference Range Interpretation Comments HEMOGLOBIN A1c (test code = 19462) 11.0 % HEMOGLOBIN [id number] 00:00:00 Test Item Value Reference Range Interpretation Comments HEMOGLOBIN A1c (test code = 54943) 11.0 % HEMOGLOBIN [id number] 00:00:00 Test Item Value Reference Range Interpretation Comments HEMOGLOBIN A1c (test code = 49266) 11.0 % COMPREHENSIVE METABOLIC [id number] 00:00:00 Test Item Value Reference Range Interpretation Comments GLUCOSE (test code = 2217) 259 MG/DL BUN (test code = 2208) 17 MG/DL CREATININE (test code = 2214) 0.72 MG/DL eGFR (2020 CKD-EPI) (test 106 ML/MIN/1.73 code = 11860) CALC BUN/CREAT (test code = 24 RATIO 2235) SODIUM (test code = 2231) 137 MEQ/L POTASSIUM (test code = 2228) 4.6 MEQ/L CHLORIDE (test code = 2215) 100 MEQ/L CARBON DIOXIDE (test code = 23 MEQ/L 2205) CALCIUM (test code = 2209) 9.7 MG/DL PROTEIN, TOTAL (test code = 7.5 G/DL 2228) ALBUMIN (test code = 2201) 4.7 G/DL CALC GLOBULIN (test code = 2.8 G/DL 2239) CALC A/G RATIO (test code = 1.7 RATIO 2233) BILIRUBIN, TOTAL (test code = 0.3 MG/DL 2206) ALKALINE PHOSPHATASE (test 61 U/L code = 2204) AST (test code = 2218) 22 U/L ALT (test code = 2219) 38 U/L COMPREHENSIVE METABOLIC [id number] 00:00:00 Test Item Value Reference Range Interpretation Comments GLUCOSE (test code = 2217) 259 MG/DL BUN (test code = 2208) 17 MG/DL CREATININE (test code = 2214) 0.72 MG/DL eGFR (2020 CKD-EPI) (test 106 ML/MIN/1.73 code = 71419) CALC BUN/CREAT (test code = 24 RATIO 2235) SODIUM (test code = 2231) 137 MEQ/L POTASSIUM (test code = 2228) 4.6 MEQ/L CHLORIDE (test code = 2215) 100 MEQ/L CARBON DIOXIDE (test code = 23 MEQ/L 220) CALCIUM (test code = 2209) 9.7 MG/DL PROTEIN, TOTAL (test code = 7.5 G/DL 2228) ALBUMIN (test code = 2201) 4.7 G/DL CALC GLOBULIN (test code = 2.8 G/DL 2240) CALC A/G RATIO (test code = 1.7 RATIO 2234) BILIRUBIN, TOTAL (test code = 0.3 MG/DL 2206) ALKALINE PHOSPHATASE (test 61 U/L code = 2204) AST (test code = 2218) 22 U/L ALT (test code = 2219) 38 U/L LIPID [id number] 00:00:00 Test Item Value Reference Range Interpretation Comments CHOLESTEROL (test code = 2210) 196 MG/DL TRIGLYCERIDES (test code = 2232) 500 MG/DL HDL CHOLESTEROL (test code = 31 MG/DL 2220) CALC LDL CHOL (test code = 2237) (NOTE) MG/DL RISK RATIO LDL/HDL (test code = (NOTE) RATIO 2238) LIPID [id number] 00:00:00 Test Item Value Reference Range Interpretation Comments CHOLESTEROL (test code = 2210) 196 MG/DL TRIGLYCERIDES (test code = 2232) 500 MG/DL HDL CHOLESTEROL (test code = 31 MG/DL 2220) CALC LDL CHOL (test code = 2237) (NOTE) MG/DL RISK RATIO LDL/HDL (test code = (NOTE) RATIO 2238) HEMOGLOBIN [id number] 00:00:00 Test Item Value Reference Range Interpretation Comments HEMOGLOBIN A1c (test code = 60970) 11.0 % HEMOGLOBIN [id number] 00:00:00 Test Item Value Reference Range Interpretation Comments HEMOGLOBIN A1c (test code = 99517) 11.0 % HEMOGLOBIN [id number] 00:00:00 Test Item Value Reference Range Interpretation Comments HEMOGLOBIN A1c (test code = 85219) 11.0 % VAGINAL PATHOGENS DNA [id number] 15:33:03 Test Item Value Reference Range Interpretation Comments ANDIE SPECIES (test NEGATIVE NEGATIVE code = ) G. VAGINALIS (test NEGATIVE NEGATIVE code = ) T. VAGINALIS (test NEGATIVE NEGATIVE UNLESS O THERWISE code = ) INDICATED, ALL TESTING PERFORMED [facility] [address] [place] [address] 4 LABORATORY DIRE CTOR: NOAH TODD M.D. CLIA NUMBER [id number] [facility] [place] [id number] VAGINAL PATHOGENS DNA [id number] 00:00:00 Test Item Value Reference Range Interpretation Comments ANDIE SPECIES (test code = ) NEGATIVE G. VAGINALIS (test code = 60445) NEGATIVE T. VAGINALIS (test code = 75735) NEGATIVE VAGINAL PATHOGENS DNA [id number] 00:00:00 Test Item Value Reference Range Interpretation Comments ANDIE SPECIES (test code = 61147) NEGATIVE G. VAGINALIS (test code = 75651) NEGATIVE T. VAGINALIS (test code = 29523) NEGATIVE VAGINAL PATHOGENS DNA [id number] 00:00:00 Test Item Value Reference Range Interpretation Comments ANDIE SPECIES (test code = 99813) NEGATIVE G. VAGINALIS (test code = 02107) NEGATIVE T. VAGINALIS (test code = 25909) NEGATIVE VAGINAL PATHOGENS DNA [id number] 00:00:00 Test Item Value Reference Range Interpretation Comments ANDIE SPECIES (test code = 18112) NEGATIVE G. VAGINALIS (test code = 68721) NEGATIVE T. VAGINALIS (test code = 98157) NEGATIVE VAGINAL PATHOGENS DNA [id number] 00:00:00 Test Item Value Reference Range Interpretation Comments ANDIE SPECIES (test code = 24453) NEGATIVE G. VAGINALIS (test code = 51407) NEGATIVE T. VAGINALIS (test code = 63739) NEGATIVE VAGINAL PATHOGENS DNA [id number] 00:00:00 Test Item Value Reference Range Interpretation Comments ANDIE SPECIES (test code = 31211) NEGATIVE G. VAGINALIS (test code = 97459) NEGATIVE T. VAGINALIS (test code = 32349) NEGATIVE VAGINAL PATHOGENS DNA [id number] 00:00:00 Test Item Value Reference Range Interpretation Comments ANDIE SPECIES (test code = 49222) NEGATIVE G. VAGINALIS (test code = 72499) NEGATIVE T. VAGINALIS (test code = 12593) NEGATIVE VAGINAL PATHOGENS DNA [id number] 00:00:00 Test Item Value Reference Range Interpretation Comments ANDIE SPECIES (test code = 30760) NEGATIVE G. VAGINALIS (test code = 87939) NEGATIVE T. VAGINALIS (test code = 32032) NEGATIVE VAGINAL PATHOGENS DNA [id number] 00:00:00 Test Item Value Reference Range Interpretation Comments ANDIE SPECIES (test code = 67253) NEGATIVE G. VAGINALIS (test code = 26792) NEGATIVE T. VAGINALIS (test code = 08392) NEGATIVE VAGINAL PATHOGENS DNA [id number] 00:00:00 Test Item Value Reference Range Interpretation Comments ANDIE SPECIES (test code = ) NEGATIVE G. VAGINALIS (test code = ) NEGATIVE T. VAGINALIS (test code = ) NEGATIVE CULTURE, [id number] 14:55:44SPECIMEN NUMBER: [id number] CULTURE, URINE SPECIMEN NUMBER: [id number] SPECIMEN COMMENT: URINE SOURCE:URINE REPORT STATUS: FINAL FINAL REPORT: 04/11/2022 <10,000 CFU/ML UROGENITAL NORMA PRESENT NO COM MON PATHOGENSCULTURE, [id number] 00:00:00 Test Item Value Reference Range Interpretation Comments CULTURE, URINE (test SPECIMEN NUMBER: code = 22420) [id number] CULTURE, [id number] 00:00:00 Test Item Value Reference Range Interpretation Comments CULTURE, URINE (test SPECIMEN NUMBER: code = 87579) [id number] CULTURE, [id number] 00:00:00 Test Item Value Reference Range Interpretation Comments CULTURE, URINE (test SPECIMEN NUMBER: code = 46387) [id number] CULTURE, [id number] 00:00:00 Test Item Value Reference Range Interpretation Comments CULTURE, URINE (test SPECIMEN NUMBER: code = 95549) [id number] CULTURE, [id number] 00:00:00 Test Item Value Reference Range Interpretation Comments CULTURE, URINE (test SPECIMEN NUMBER: code = 22389) [id number] CULTURE, [id number] 00:00:00 Test Item Value Reference Range Interpretation Comments CULTURE, URINE (test SPECIMEN NUMBER: code = 53430) [id number] CULTURE, [id number] 00:00:00 Test Item Value Reference Range Interpretation Comments CULTURE, URINE (test SPECIMEN NUMBER: code = 68386) [id number] CULTURE, [id number] 00:00:00 Test Item Value Reference Range Interpretation Comments CULTURE, URINE (test SPECIMEN NUMBER: code = 96251) [id number] CULTURE, [id number] 00:00:00 Test Item Value Reference Range Interpretation Comments CULTURE, URINE (test SPECIMEN NUMBER: code = 30611) [id number] CULTURE, [id number] 00:00:00 Test Item Value Reference Range Interpretation Comments CULTURE, URINE (test SPECIMEN NUMBER: code = 82955) [id number] CULTURE, [id number] 00:00:00 Test Item Value Reference Range Interpretation Comments CULTURE, URINE (test SPECIMEN NUMBER: code = 53818) [id number] CULTURE, [id number] 00:00:00 Test Item Value Reference Range Interpretation Comments CULTURE, URINE (test SPECIMEN NUMBER: code = 98724) [id number] CULTURE, [id number] 00:00:00 Test Item Value Reference Range Interpretation Comments CULTURE, URINE (test SPECIMEN NUMBER: code = 14556) [id number] CULTURE, [id number] 00:00:00 Test Item Value Reference Range Interpretation Comments CULTURE, URINE (test SPECIMEN NUMBER: code = 82834) [id number] CBC W/AUTO DIFF WITH [id number] 02:13:01 Test Item Value Reference Range Interpretation Comments WBC (test code = 8.2 K/UL 3.5-11.0 1001) RBC (test code = 4.71 M/UL 3.80-5.40 1002) HEMOGLOBIN (test 12.7 G/DL 11.5-15.5 code = 1003) HEMATOCRIT (test 39.6 % 34.0-45.0 code = 1004) MCV (test code = 84.1 fL 80.0-99.0 1005) MCH (test code = 27.0 PG 25.0-33.0 1006) MCHC (test code = 32.1 G/DL 31.0-36.0 1007) RDW (test code = 13.6 % 11.5-15.0 1038) NEUTROPHILS (test 49.4 % code = 1008) LYMPHOCYTES (test 39.0 % code = 1010) MONOCYTES (test code 7.9 % = 1011) EOSINOPHILS (test 2.2 % code = 1012) BASOPHILS (test code 1.0 % = 1013) IMMATURE 0.5 % GRANULOCYTES (test code = 1036) NUCLEATED RBCS (test 0.0 /100 See_Comment [Autom ated message] code = 1065) WBC'S The system [employer] generated this result transmitted ref erence range: 0.0. The reference range was not used to int erpret this result as normal/abnormal . PLATELET COUNT (test 280 K/UL 130-400 code = 1015) ABSOLUTE NEUTROPHILS 4.03 K/UL 1.50-7.50 (test code = 1066) ABSOLUTE LYMPHOCYTES 3.18 K/UL 1.00-4.00 (test code = 1067) ABSOLUTE MONOCYTES 0.64 K/UL 0.20-1.00 (test code = 1068) ABSOLUTE EOSINOPHILS 0.18 K/UL 0.00-0.50 (test code = 1040) ABSOLUTE BASOPHILS 0.08 K/UL 0.00-0.20 (test code = 1069) ABS IMMATURE 0.04 K/UL 0.00-0.10 GRANULOCYTES (test code = 1020) ABS NUCLEATED RBCS 0.00 K/UL 0.00-0.11 UNLESS O THERWISE (test code = 86516) INDICATE D, ALL TESTING PERFORM ED [facility], [facility] [place]. [address] [place] [address] [facility] DIRECTOR: NOAH DICKENS M.D. [place] NUMBER [id number] CAP ACCREDITATION N O. [id number] CBC W/AUTO [id number] 00:00:00 Test Item Value Reference Range Interpretation Comments WBC (test code = 1001) 8.2 K/UL RBC (test code = 1002) 4.71 M/UL HEMOGLOBIN (test code = 1003) 12.7 G/DL HEMATOCRIT (test code = 1004) 39.6 % MCV (test code = 1005) 84.1 fL MCH (test code = 1006) 27.0 PG MCHC (test code = 1007) 32.1 G/DL RDW (test code = 1038) 13.6 % NEUTROPHILS (test code = 1008) 49.4 % LYMPHOCYTES (test code = 1010) 39.0 % MONOCYTES (test code = 1011) 7.9 % EOSINOPHILS (test code = 1012) 2.2 % BASOPHILS (test code = 1013) 1.0 % IMMATURE GRANULOCYTES (test 0.5 % code = 1036) NUCLEATED RBCS (test code = 0.0 /100WBC'S 1065) PLATELET COUNT (test code = 280 K/UL 1015) ABSOLUTE NEUTROPHILS (test code 4.03 K/UL = 1066) ABSOLUTE LYMPHOCYTES (test code 3.18 K/UL = 1067) ABSOLUTE MONOCYTES (test code = 0.64 K/UL 1068) ABSOLUTE EOSINOPHILS (test code 0.18 K/UL = 1040) ABSOLUTE BASOPHILS (test code = 0.08 K/UL 1069) ABS IMMATURE GRANULOCYTES (test 0.04 K/UL code = 1020) ABS NUCLEATED RBCS (test code = 0.00 K/UL 89140) CBC W/AUTO [id number] 00:00:00 Test Item Value Reference Range Interpretation Comments WBC (test code = 1001) 8.2 K/UL RBC (test code = 1002) 4.71 M/UL HEMOGLOBIN (test code = 1003) 12.7 G/DL HEMATOCRIT (test code = 1004) 39.6 % MCV (test code = 1005) 84.1 fL MCH (test code = 1006) 27.0 PG MCHC (test code = 1007) 32.1 G/DL RDW (test code = 1038) 13.6 % NEUTROPHILS (test code = 1008) 49.4 % LYMPHOCYTES (test code = 1010) 39.0 % MONOCYTES (test code = 1011) 7.9 % EOSINOPHILS (test code = 1012) 2.2 % BASOPHILS (test code = 1013) 1.0 % IMMATURE GRANULOCYTES (test 0.5 % code = 1036) NUCLEATED RBCS (test code = 0.0 /100WBC'S 1065) PLATELET COUNT (test code = 280 K/UL 1015) ABSOLUTE NEUTROPHILS (test code 4.03 K/UL = 1066) ABSOLUTE LYMPHOCYTES (test code 3.18 K/UL = 1067) ABSOLUTE MONOCYTES (test code = 0.64 K/UL 1068) ABSOLUTE EOSINOPHILS (test code 0.18 K/UL = 1040) ABSOLUTE BASOPHILS (test code = 0.08 K/UL 1069) ABS IMMATURE GRANULOCYTES (test 0.04 K/UL code = 1020) ABS NUCLEATED RBCS (test code = 0.00 K/UL 55693) CBC W/AUTO [id number] 00:00:00 Test Item Value Reference Range Interpretation Comments WBC (test code = 1001) 8.2 K/UL RBC (test code = 1002) 4.71 M/UL HEMOGLOBIN (test code = 1003) 12.7 G/DL HEMATOCRIT (test code = 1004) 39.6 % MCV (test code = 1005) 84.1 fL MCH (test code = 1006) 27.0 PG MCHC (test code = 1007) 32.1 G/DL RDW (test code = 1038) 13.6 % NEUTROPHILS (test code = 1008) 49.4 % LYMPHOCYTES (test code = 1010) 39.0 % MONOCYTES (test code = 1011) 7.9 % EOSINOPHILS (test code = 1012) 2.2 % BASOPHILS (test code = 1013) 1.0 % IMMATURE GRANULOCYTES (test 0.5 % code = 1036) NUCLEATED RBCS (test code = 0.0 /100WBC'S 1065) PLATELET COUNT (test code = 280 K/UL 1015) ABSOLUTE NEUTROPHILS (test code 4.03 K/UL = 1066) ABSOLUTE LYMPHOCYTES (test code 3.18 K/UL = 1067) ABSOLUTE MONOCYTES (test code = 0.64 K/UL 1068) ABSOLUTE EOSINOPHILS (test code 0.18 K/UL = 1040) ABSOLUTE BASOPHILS (test code = 0.08 K/UL 1069) ABS IMMATURE GRANULOCYTES (test 0.04 K/UL code = 1020) ABS NUCLEATED RBCS (test code = 0.00 K/UL 64008) CBC W/AUTO [id number] 00:00:00 Test Item Value Reference Range Interpretation Comments WBC (test code = 1001) 8.2 K/UL RBC (test code = 1002) 4.71 M/UL HEMOGLOBIN (test code = 1003) 12.7 G/DL HEMATOCRIT (test code = 1004) 39.6 % MCV (test code = 1005) 84.1 fL MCH (test code = 1006) 27.0 PG MCHC (test code = 1007) 32.1 G/DL RDW (test code = 1038) 13.6 % NEUTROPHILS (test code = 1008) 49.4 % LYMPHOCYTES (test code = 1010) 39.0 % MONOCYTES (test code = 1011) 7.9 % EOSINOPHILS (test code = 1012) 2.2 % BASOPHILS (test code = 1013) 1.0 % IMMATURE GRANULOCYTES (test 0.5 % code = 1036) NUCLEATED RBCS (test code = 0.0 /100WBC'S 1065) PLATELET COUNT (test code = 280 K/UL 1015) ABSOLUTE NEUTROPHILS (test code 4.03 K/UL = 1066) ABSOLUTE LYMPHOCYTES (test code 3.18 K/UL = 1067) ABSOLUTE MONOCYTES (test code = 0.64 K/UL 1068) ABSOLUTE EOSINOPHILS (test code 0.18 K/UL = 1040) ABSOLUTE BASOPHILS (test code = 0.08 K/UL 1069) ABS IMMATURE GRANULOCYTES (test 0.04 K/UL code = 1020) ABS NUCLEATED RBCS (test code = 0.00 K/UL 15520) CBC W/AUTO [id number] 00:00:00 Test Item Value Reference Range Interpretation Comments WBC (test code = 1001) 8.2 K/UL RBC (test code = 1002) 4.71 M/UL HEMOGLOBIN (test code = 1003) 12.7 G/DL HEMATOCRIT (test code = 1004) 39.6 % MCV (test code = 1005) 84.1 fL MCH (test code = 1006) 27.0 PG MCHC (test code = 1007) 32.1 G/DL RDW (test code = 1038) 13.6 % NEUTROPHILS (test code = 1008) 49.4 % LYMPHOCYTES (test code = 1010) 39.0 % MONOCYTES (test code = 1011) 7.9 % EOSINOPHILS (test code = 1012) 2.2 % BASOPHILS (test code = 1013) 1.0 % IMMATURE GRANULOCYTES (test 0.5 % code = 1036) NUCLEATED RBCS (test code = 0.0 /100WBC'S 1065) PLATELET COUNT (test code = 280 K/UL 1015) ABSOLUTE NEUTROPHILS (test code 4.03 K/UL = 1066) ABSOLUTE LYMPHOCYTES (test code 3.18 K/UL = 1067) ABSOLUTE MONOCYTES (test code = 0.64 K/UL 1068) ABSOLUTE EOSINOPHILS (test code 0.18 K/UL = 1040) ABSOLUTE BASOPHILS (test code = 0.08 K/UL 1069) ABS IMMATURE GRANULOCYTES (test 0.04 K/UL code = 1020) ABS NUCLEATED RBCS (test code = 0.00 K/UL 00852) CBC W/AUTO [id number] 00:00:00 Test Item Value Reference Range Interpretation Comments WBC (test code = 1001) 8.2 K/UL RBC (test code = 1002) 4.71 M/UL HEMOGLOBIN (test code = 1003) 12.7 G/DL HEMATOCRIT (test code = 1004) 39.6 % MCV (test code = 1005) 84.1 fL MCH (test code = 1006) 27.0 PG MCHC (test code = 1007) 32.1 G/DL RDW (test code = 1038) 13.6 % NEUTROPHILS (test code = 1008) 49.4 % LYMPHOCYTES (test code = 1010) 39.0 % MONOCYTES (test code = 1011) 7.9 % EOSINOPHILS (test code = 1012) 2.2 % BASOPHILS (test code = 1013) 1.0 % IMMATURE GRANULOCYTES (test 0.5 % code = 1036) NUCLEATED RBCS (test code = 0.0 /100WBC'S 1065) PLATELET COUNT (test code = 280 K/UL 1015) ABSOLUTE NEUTROPHILS (test code 4.03 K/UL = 1066) ABSOLUTE LYMPHOCYTES (test code 3.18 K/UL = 1067) ABSOLUTE MONOCYTES (test code = 0.64 K/UL 1068) ABSOLUTE EOSINOPHILS (test code 0.18 K/UL = 1040) ABSOLUTE BASOPHILS (test code = 0.08 K/UL 1069) ABS IMMATURE GRANULOCYTES (test 0.04 K/UL code = 1020) ABS NUCLEATED RBCS (test code = 0.00 K/UL 15086) CBC W/AUTO [id number] 00:00:00 Test Item Value Reference Range Interpretation Comments WBC (test code = 1001) 8.2 K/UL RBC (test code = 1002) 4.71 M/UL HEMOGLOBIN (test code = 1003) 12.7 G/DL HEMATOCRIT (test code = 1004) 39.6 % MCV (test code = 1005) 84.1 fL MCH (test code = 1006) 27.0 PG MCHC (test code = 1007) 32.1 G/DL RDW (test code = 1038) 13.6 % NEUTROPHILS (test code = 1008) 49.4 % LYMPHOCYTES (test code = 1010) 39.0 % MONOCYTES (test code = 1011) 7.9 % EOSINOPHILS (test code = 1012) 2.2 % BASOPHILS (test code = 1013) 1.0 % IMMATURE GRANULOCYTES (test 0.5 % code = 1036) NUCLEATED RBCS (test code = 0.0 /100WBC'S 1065) PLATELET COUNT (test code = 280 K/UL 1015) ABSOLUTE NEUTROPHILS (test code 4.03 K/UL = 1066) ABSOLUTE LYMPHOCYTES (test code 3.18 K/UL = 1067) ABSOLUTE MONOCYTES (test code = 0.64 K/UL 1068) ABSOLUTE EOSINOPHILS (test code 0.18 K/UL = 1040) ABSOLUTE BASOPHILS (test code = 0.08 K/UL 1069) ABS IMMATURE GRANULOCYTES (test 0.04 K/UL code = 1020) ABS NUCLEATED RBCS (test code = 0.00 K/UL 62924) CBC W/AUTO [id number] 00:00:00 Test Item Value Reference Range Interpretation Comments WBC (test code = 1001) 8.2 K/UL RBC (test code = 1002) 4.71 M/UL HEMOGLOBIN (test code = 1003) 12.7 G/DL HEMATOCRIT (test code = 1004) 39.6 % MCV (test code = 1005) 84.1 fL MCH (test code = 1006) 27.0 PG MCHC (test code = 1007) 32.1 G/DL RDW (test code = 1038) 13.6 % NEUTROPHILS (test code = 1008) 49.4 % LYMPHOCYTES (test code = 1010) 39.0 % MONOCYTES (test code = 1011) 7.9 % EOSINOPHILS (test code = 1012) 2.2 % BASOPHILS (test code = 1013) 1.0 % IMMATURE GRANULOCYTES (test 0.5 % code = 1036) NUCLEATED RBCS (test code = 0.0 /100WBC'S 1065) PLATELET COUNT (test code = 280 K/UL 1015) ABSOLUTE NEUTROPHILS (test code 4.03 K/UL = 1066) ABSOLUTE LYMPHOCYTES (test code 3.18 K/UL = 1067) ABSOLUTE MONOCYTES (test code = 0.64 K/UL 1068) ABSOLUTE EOSINOPHILS (test code 0.18 K/UL = 1040) ABSOLUTE BASOPHILS (test code = 0.08 K/UL 1069) ABS IMMATURE GRANULOCYTES (test 0.04 K/UL code = 1020) ABS NUCLEATED RBCS (test code = 0.00 K/UL 93120) CBC W/AUTO [id number] 00:00:00 Test Item Value Reference Range Interpretation Comments WBC (test code = 1001) 8.2 K/UL RBC (test code = 1002) 4.71 M/UL HEMOGLOBIN (test code = 1003) 12.7 G/DL HEMATOCRIT (test code = 1004) 39.6 % MCV (test code = 1005) 84.1 fL MCH (test code = 1006) 27.0 PG MCHC (test code = 1007) 32.1 G/DL RDW (test code = 1038) 13.6 % NEUTROPHILS (test code = 1008) 49.4 % LYMPHOCYTES (test code = 1010) 39.0 % MONOCYTES (test code = 1011) 7.9 % EOSINOPHILS (test code = 1012) 2.2 % BASOPHILS (test code = 1013) 1.0 % IMMATURE GRANULOCYTES (test 0.5 % code = 1036) NUCLEATED RBCS (test code = 0.0 /100WBC'S 1065) PLATELET COUNT (test code = 280 K/UL 1015) ABSOLUTE NEUTROPHILS (test code 4.03 K/UL = 1066) ABSOLUTE LYMPHOCYTES (test code 3.18 K/UL = 1067) ABSOLUTE MONOCYTES (test code = 0.64 K/UL 1068) ABSOLUTE EOSINOPHILS (test code 0.18 K/UL = 1040) ABSOLUTE BASOPHILS (test code = 0.08 K/UL 1069) ABS IMMATURE GRANULOCYTES (test 0.04 K/UL code = 1020) ABS NUCLEATED RBCS (test code = 0.00 K/UL 11625) CBC W/AUTO [id number] 00:00:00 Test Item Value Reference Range Interpretation Comments WBC (test code = 1001) 8.2 K/UL RBC (test code = 1002) 4.71 M/UL HEMOGLOBIN (test code = 1003) 12.7 G/DL HEMATOCRIT (test code = 1004) 39.6 % MCV (test code = 1005) 84.1 fL MCH (test code = 1006) 27.0 PG MCHC (test code = 1007) 32.1 G/DL RDW (test code = 1038) 13.6 % NEUTROPHILS (test code = 1008) 49.4 % LYMPHOCYTES (test code = 1010) 39.0 % MONOCYTES (test code = 1011) 7.9 % EOSINOPHILS (test code = 1012) 2.2 % BASOPHILS (test code = 1013) 1.0 % IMMATURE GRANULOCYTES (test 0.5 % code = 1036) NUCLEATED RBCS (test code = 0.0 /100WBC'S 1065) PLATELET COUNT (test code = 280 K/UL 1015) ABSOLUTE NEUTROPHILS (test code 4.03 K/UL = 1066) ABSOLUTE LYMPHOCYTES (test code 3.18 K/UL = 1067) ABSOLUTE MONOCYTES (test code = 0.64 K/UL 1068) ABSOLUTE EOSINOPHILS (test code 0.18 K/UL = 1040) ABSOLUTE BASOPHILS (test code = 0.08 K/UL 1069) ABS IMMATURE GRANULOCYTES (test 0.04 K/UL code = 1020) ABS NUCLEATED RBCS (test code = 0.00 K/UL 03440) CBC W/AUTO [id number] 00:00:00 Test Item Value Reference Range Interpretation Comments WBC (test code = 1001) 8.2 K/UL RBC (test code = 1002) 4.71 M/UL HEMOGLOBIN (test code = 1003) 12.7 G/DL HEMATOCRIT (test code = 1004) 39.6 % MCV (test code = 1005) 84.1 fL MCH (test code = 1006) 27.0 PG MCHC (test code = 1007) 32.1 G/DL RDW (test code = 1038) 13.6 % NEUTROPHILS (test code = 1008) 49.4 % LYMPHOCYTES (test code = 1010) 39.0 % MONOCYTES (test code = 1011) 7.9 % EOSINOPHILS (test code = 1012) 2.2 % BASOPHILS (test code = 1013) 1.0 % IMMATURE GRANULOCYTES (test 0.5 % code = 1036) NUCLEATED RBCS (test code = 0.0 /100WBC'S 1065) PLATELET COUNT (test code = 280 K/UL 1015) ABSOLUTE NEUTROPHILS (test code 4.03 K/UL = 1066) ABSOLUTE LYMPHOCYTES (test code 3.18 K/UL = 1067) ABSOLUTE MONOCYTES (test code = 0.64 K/UL 1068) ABSOLUTE EOSINOPHILS (test code 0.18 K/UL = 1040) ABSOLUTE BASOPHILS (test code = 0.08 K/UL 1069) ABS IMMATURE GRANULOCYTES (test 0.04 K/UL code = 1020) ABS NUCLEATED RBCS (test code = 0.00 K/UL 14146) CBC W/AUTO [id number] 00:00:00 Test Item Value Reference Range Interpretation Comments WBC (test code = 1001) 8.2 K/UL RBC (test code = 1002) 4.71 M/UL HEMOGLOBIN (test code = 1003) 12.7 G/DL HEMATOCRIT (test code = 1004) 39.6 % MCV (test code = 1005) 84.1 fL MCH (test code = 1006) 27.0 PG MCHC (test code = 1007) 32.1 G/DL RDW (test code = 1038) 13.6 % NEUTROPHILS (test code = 1008) 49.4 % LYMPHOCYTES (test code = 1010) 39.0 % MONOCYTES (test code = 1011) 7.9 % EOSINOPHILS (test code = 1012) 2.2 % BASOPHILS (test code = 1013) 1.0 % IMMATURE GRANULOCYTES (test 0.5 % code = 1036) NUCLEATED RBCS (test code = 0.0 /100WBC'S 1065) PLATELET COUNT (test code = 280 K/UL 1015) ABSOLUTE NEUTROPHILS (test code 4.03 K/UL = 1066) ABSOLUTE LYMPHOCYTES (test code 3.18 K/UL = 1067) ABSOLUTE MONOCYTES (test code = 0.64 K/UL 1068) ABSOLUTE EOSINOPHILS (test code 0.18 K/UL = 1040) ABSOLUTE BASOPHILS (test code = 0.08 K/UL 1069) ABS IMMATURE GRANULOCYTES (test 0.04 K/UL code = 1020) ABS NUCLEATED RBCS (test code = 0.00 K/UL 61458) CBC W/AUTO [id number] 00:00:00 Test Item Value Reference Range Interpretation Comments WBC (test code = 1001) 8.2 K/UL RBC (test code = 1002) 4.71 M/UL HEMOGLOBIN (test code = 1003) 12.7 G/DL HEMATOCRIT (test code = 1004) 39.6 % MCV (test code = 1005) 84.1 fL MCH (test code = 1006) 27.0 PG MCHC (test code = 1007) 32.1 G/DL RDW (test code = 1038) 13.6 % NEUTROPHILS (test code = 1008) 49.4 % LYMPHOCYTES (test code = 1010) 39.0 % MONOCYTES (test code = 1011) 7.9 % EOSINOPHILS (test code = 1012) 2.2 % BASOPHILS (test code = 1013) 1.0 % IMMATURE GRANULOCYTES (test 0.5 % code = 1036) NUCLEATED RBCS (test code = 0.0 /100WBC'S 1065) PLATELET COUNT (test code = 280 K/UL 1015) ABSOLUTE NEUTROPHILS (test code 4.03 K/UL = 1066) ABSOLUTE LYMPHOCYTES (test code 3.18 K/UL = 1067) ABSOLUTE MONOCYTES (test code = 0.64 K/UL 1068) ABSOLUTE EOSINOPHILS (test code 0.18 K/UL = 1040) ABSOLUTE BASOPHILS (test code = 0.08 K/UL 1069) ABS IMMATURE GRANULOCYTES (test 0.04 K/UL code = 1020) ABS NUCLEATED RBCS (test code = 0.00 K/UL 87909) CBC W/AUTO [id number] 00:00:00 Test Item Value Reference Range Interpretation Comments WBC (test code = 1001) 8.2 K/UL RBC (test code = 1002) 4.71 M/UL HEMOGLOBIN (test code = 1003) 12.7 G/DL HEMATOCRIT (test code = 1004) 39.6 % MCV (test code = 1005) 84.1 fL MCH (test code = 1006) 27.0 PG MCHC (test code = 1007) 32.1 G/DL RDW (test code = 1038) 13.6 % NEUTROPHILS (test code = 1008) 49.4 % LYMPHOCYTES (test code = 1010) 39.0 % MONOCYTES (test code = 1011) 7.9 % EOSINOPHILS (test code = 1012) 2.2 % BASOPHILS (test code = 1013) 1.0 % IMMATURE GRANULOCYTES (test 0.5 % code = 1036) NUCLEATED RBCS (test code = 0.0 /100WBC'S 1065) PLATELET COUNT (test code = 280 K/UL 1015) ABSOLUTE NEUTROPHILS (test code 4.03 K/UL = 1066) ABSOLUTE LYMPHOCYTES (test code 3.18 K/UL = 1067) ABSOLUTE MONOCYTES (test code = 0.64 K/UL 1068) ABSOLUTE EOSINOPHILS (test code 0.18 K/UL = 1040) ABSOLUTE BASOPHILS (test code = 0.08 K/UL 1069) ABS IMMATURE GRANULOCYTES (test 0.04 K/UL code = 1020) ABS NUCLEATED RBCS (test code = 0.00 K/UL 96272) CBC W/AUTO [id number] 00:00:00 Test Item Value Reference Range Interpretation Comments WBC (test code = 1001) 8.2 K/UL RBC (test code = 1002) 4.71 M/UL HEMOGLOBIN (test code = 1003) 12.7 G/DL HEMATOCRIT (test code = 1004) 39.6 % MCV (test code = 1005) 84.1 fL MCH (test code = 1006) 27.0 PG MCHC (test code = 1007) 32.1 G/DL RDW (test code = 1038) 13.6 % NEUTROPHILS (test code = 1008) 49.4 % LYMPHOCYTES (test code = 1010) 39.0 % MONOCYTES (test code = 1011) 7.9 % EOSINOPHILS (test code = 1012) 2.2 % BASOPHILS (test code = 1013) 1.0 % IMMATURE GRANULOCYTES (test 0.5 % code = 1036) NUCLEATED RBCS (test code = 0.0 /100WBC'S 1065) PLATELET COUNT (test code = 280 K/UL 1015) ABSOLUTE NEUTROPHILS (test code 4.03 K/UL = 1066) ABSOLUTE LYMPHOCYTES (test code 3.18 K/UL = 1067) ABSOLUTE MONOCYTES (test code = 0.64 K/UL 1068) ABSOLUTE EOSINOPHILS (test code 0.18 K/UL = 1040) ABSOLUTE BASOPHILS (test code = 0.08 K/UL 1069) ABS IMMATURE GRANULOCYTES (test 0.04 K/UL code = 1020) ABS NUCLEATED RBCS (test code = 0.00 K/UL 50668) CBC W/AUTO [id number] 00:00:00 Test Item Value Reference Range Interpretation Comments WBC (test code = 1001) 8.2 K/UL RBC (test code = 1002) 4.71 M/UL HEMOGLOBIN (test code = 1003) 12.7 G/DL HEMATOCRIT (test code = 1004) 39.6 % MCV (test code = 1005) 84.1 fL MCH (test code = 1006) 27.0 PG MCHC (test code = 1007) 32.1 G/DL RDW (test code = 1038) 13.6 % NEUTROPHILS (test code = 1008) 49.4 % LYMPHOCYTES (test code = 1010) 39.0 % MONOCYTES (test code = 1011) 7.9 % EOSINOPHILS (test code = 1012) 2.2 % BASOPHILS (test code = 1013) 1.0 % IMMATURE GRANULOCYTES (test 0.5 % code = 1036) NUCLEATED RBCS (test code = 0.0 /100WBC'S 1065) PLATELET COUNT (test code = 280 K/UL 1015) ABSOLUTE NEUTROPHILS (test code 4.03 K/UL = 1066) ABSOLUTE LYMPHOCYTES (test code 3.18 K/UL = 1067) ABSOLUTE MONOCYTES (test code = 0.64 K/UL 1068) ABSOLUTE EOSINOPHILS (test code 0.18 K/UL = 1040) ABSOLUTE BASOPHILS (test code = 0.08 K/UL 1069) ABS IMMATURE GRANULOCYTES (test 0.04 K/UL code = 1020) ABS NUCLEATED RBCS (test code = 0.00 K/UL 50966) CBC W/AUTO [id number] 00:00:00 Test Item Value Reference Range Interpretation Comments WBC (test code = 1001) 8.2 K/UL RBC (test code = 1002) 4.71 M/UL HEMOGLOBIN (test code = 1003) 12.7 G/DL HEMATOCRIT (test code = 1004) 39.6 % MCV (test code = 1005) 84.1 fL MCH (test code = 1006) 27.0 PG MCHC (test code = 1007) 32.1 G/DL RDW (test code = 1038) 13.6 % NEUTROPHILS (test code = 1008) 49.4 % LYMPHOCYTES (test code = 1010) 39.0 % MONOCYTES (test code = 1011) 7.9 % EOSINOPHILS (test code = 1012) 2.2 % BASOPHILS (test code = 1013) 1.0 % IMMATURE GRANULOCYTES (test 0.5 % code = 1036) NUCLEATED RBCS (test code = 0.0 /100WBC'S 1065) PLATELET COUNT (test code = 280 K/UL 1015) ABSOLUTE NEUTROPHILS (test code 4.03 K/UL = 1066) ABSOLUTE LYMPHOCYTES (test code 3.18 K/UL = 1067) ABSOLUTE MONOCYTES (test code = 0.64 K/UL 1068) ABSOLUTE EOSINOPHILS (test code 0.18 K/UL = 1040) ABSOLUTE BASOPHILS (test code = 0.08 K/UL 1069) ABS IMMATURE GRANULOCYTES (test 0.04 K/UL code = 1020) ABS NUCLEATED RBCS (test code = 0.00 K/UL 24657) CBC W/AUTO [id number] 00:00:00 Test Item Value Reference Range Interpretation Comments WBC (test code = 1001) 8.2 K/UL RBC (test code = 1002) 4.71 M/UL HEMOGLOBIN (test code = 1003) 12.7 G/DL HEMATOCRIT (test code = 1004) 39.6 % MCV (test code = 1005) 84.1 fL MCH (test code = 1006) 27.0 PG MCHC (test code = 1007) 32.1 G/DL RDW (test code = 1038) 13.6 % NEUTROPHILS (test code = 1008) 49.4 % LYMPHOCYTES (test code = 1010) 39.0 % MONOCYTES (test code = 1011) 7.9 % EOSINOPHILS (test code = 1012) 2.2 % BASOPHILS (test code = 1013) 1.0 % IMMATURE GRANULOCYTES (test 0.5 % code = 1036) NUCLEATED RBCS (test code = 0.0 /100WBC'S 1065) PLATELET COUNT (test code = 280 K/UL 1015) ABSOLUTE NEUTROPHILS (test code 4.03 K/UL = 1066) ABSOLUTE LYMPHOCYTES (test code 3.18 K/UL = 1067) ABSOLUTE MONOCYTES (test code = 0.64 K/UL 1068) ABSOLUTE EOSINOPHILS (test code 0.18 K/UL = 1040) ABSOLUTE BASOPHILS (test code = 0.08 K/UL 1069) ABS IMMATURE GRANULOCYTES (test 0.04 K/UL code = 1020) ABS NUCLEATED RBCS (test code = 0.00 K/UL 21270) CBC W/AUTO [id number] 00:00:00 Test Item Value Reference Range Interpretation Comments WBC (test code = 1001) 8.2 K/UL RBC (test code = 1002) 4.71 M/UL HEMOGLOBIN (test code = 1003) 12.7 G/DL HEMATOCRIT (test code = 1004) 39.6 % MCV (test code = 1005) 84.1 fL MCH (test code = 1006) 27.0 PG MCHC (test code = 1007) 32.1 G/DL RDW (test code = 1038) 13.6 % NEUTROPHILS (test code = 1008) 49.4 % LYMPHOCYTES (test code = 1010) 39.0 % MONOCYTES (test code = 1011) 7.9 % EOSINOPHILS (test code = 1012) 2.2 % BASOPHILS (test code = 1013) 1.0 % IMMATURE GRANULOCYTES (test 0.5 % code = 1036) NUCLEATED RBCS (test code = 0.0 /100WBC'S 1065) PLATELET COUNT (test code = 280 K/UL 1015) ABSOLUTE NEUTROPHILS (test code 4.03 K/UL = 1066) ABSOLUTE LYMPHOCYTES (test code 3.18 K/UL = 1067) ABSOLUTE MONOCYTES (test code = 0.64 K/UL 1068) ABSOLUTE EOSINOPHILS (test code 0.18 K/UL = 1040) ABSOLUTE BASOPHILS (test code = 0.08 K/UL 1069) ABS IMMATURE GRANULOCYTES (test 0.04 K/UL code = 1020) ABS NUCLEATED RBCS (test code = 0.00 K/UL 18924) CBC W/AUTO [id number] 00:00:00 Test Item Value Reference Range Interpretation Comments WBC (test code = 1001) 8.2 K/UL RBC (test code = 1002) 4.71 M/UL HEMOGLOBIN (test code = 1003) 12.7 G/DL HEMATOCRIT (test code = 1004) 39.6 % MCV (test code = 1005) 84.1 fL MCH (test code = 1006) 27.0 PG MCHC (test code = 1007) 32.1 G/DL RDW (test code = 1038) 13.6 % NEUTROPHILS (test code = 1008) 49.4 % LYMPHOCYTES (test code = 1010) 39.0 % MONOCYTES (test code = 1011) 7.9 % EOSINOPHILS (test code = 1012) 2.2 % BASOPHILS (test code = 1013) 1.0 % IMMATURE GRANULOCYTES (test 0.5 % code = 1036) NUCLEATED RBCS (test code = 0.0 /100WBC'S 1065) PLATELET COUNT (test code = 280 K/UL 1015) ABSOLUTE NEUTROPHILS (test code 4.03 K/UL = 1066) ABSOLUTE LYMPHOCYTES (test code 3.18 K/UL = 1067) ABSOLUTE MONOCYTES (test code = 0.64 K/UL 1068) ABSOLUTE EOSINOPHILS (test code 0.18 K/UL = 1040) ABSOLUTE BASOPHILS (test code = 0.08 K/UL 1069) ABS IMMATURE GRANULOCYTES (test 0.04 K/UL code = 1020) ABS NUCLEATED RBCS (test code = 0.00 K/UL 07602) CBC W/AUTO [id number] 00:00:00 Test Item Value Reference Range Interpretation Comments WBC (test code = 1001) 8.2 K/UL RBC (test code = 1002) 4.71 M/UL HEMOGLOBIN (test code = 1003) 12.7 G/DL HEMATOCRIT (test code = 1004) 39.6 % MCV (test code = 1005) 84.1 fL MCH (test code = 1006) 27.0 PG MCHC (test code = 1007) 32.1 G/DL RDW (test code = 1038) 13.6 % NEUTROPHILS (test code = 1008) 49.4 % LYMPHOCYTES (test code = 1010) 39.0 % MONOCYTES (test code = 1011) 7.9 % EOSINOPHILS (test code = 1012) 2.2 % BASOPHILS (test code = 1013) 1.0 % IMMATURE GRANULOCYTES (test 0.5 % code = 1036) NUCLEATED RBCS (test code = 0.0 /100WBC'S 1065) PLATELET COUNT (test code = 280 K/UL 1015) ABSOLUTE NEUTROPHILS (test code 4.03 K/UL = 1066) ABSOLUTE LYMPHOCYTES (test code 3.18 K/UL = 1067) ABSOLUTE MONOCYTES (test code = 0.64 K/UL 1068) ABSOLUTE EOSINOPHILS (test code 0.18 K/UL = 1040) ABSOLUTE BASOPHILS (test code = 0.08 K/UL 1069) ABS IMMATURE GRANULOCYTES (test 0.04 K/UL code = 1020) ABS NUCLEATED RBCS (test code = 0.00 K/UL 32463) COMPREHENSIVE METABOLIC [id number] 04:26:32 Test Item Value Reference Range Interpretation Comments GLUCOSE (test code = 122 MG/DL 70-99 H 2216) BUN (test code = 11 MG/DL 12-28) CREATININE (test 0.65 MG/DL 0.60-1.30 code = 2214) eGFR (2020 CKD-EPI) 111 >60 (test code = 29689) ML/MIN/1.73 CALC BUN/CREAT (test 17 RATIO - code = 2235) SODIUM (test code = 145 MEQ/L 364-277 6775) POTASSIUM (test code 4.2 MEQ/L 3.5-5.4 = 2228) CHLORIDE (test code 107 MEQ/L 95-107 = 2215) CARBON DIOXIDE (test 26 MEQ/L 19-31 code = 2206) CALCIUM (test code = 9.8 MG/DL 8.5-10.5 2208) PROTEIN, TOTAL (test 7.5 G/DL 6.1-8.3 code = 2229) ALBUMIN (test code = 4.5 G/DL 3.5-5.2 2200) CALC GLOBULIN (test 3.0 G/DL 1.9-3.7 code = 2240) CALC A/G RATIO (test 1.5 RATIO 1.0-2.6 code = 2234) BILIRUBIN, TOTAL 0.5 MG/DL See_Comment [Automated message] (test code = 220) The syste m which generated this result transmit faith reference range : <=1.2. The refe rence range was not u sed to interpret th is result as normal/abnormal . ALKALINE PHOSPHATASE 62 U/L 40-115 (test code = 220) AST (test code = 24 U/L 9-40 2217) ALT (test code = 38 U/L 5-40 2218) LIPID [id number] 04:26:32 Test Item Value Reference Range Interpretation [...] MOREINFORMATION , SEE CLIENT ANNOUNCE MENT AT [email or web address] [email or web address] RATIO LDL/HDL 2.84 RATIO <3.22 (test code = 2238) HEMOGLOBIN [id number] 04:03:31 Test Item Value Reference Range Interpretation Comments HEMOGLOBIN A1c (test 10.9 % 4.2-5.6 H [employer] AN DIABETES code = 09110) ASSOCIATION [employer] FOR HGB A1C: PREDIABETES/INC REASED [...] UNLESS OTHERWIS E INDICATED, ALL TESTING PER FORMED ATCLINICAL PATH OLOGY [facility], [facility] [place]. [address] [place] [address] LABORATORY DIRE CTOR: Carlos Enrique BERNARD. CLIA NUMBER [id number] CAP ACCREDITATION N O. [id number] COMPREHENSIVE METABOLIC [id number] 00:00:00 Test Item Value Reference Range Interpretation Comments GLUCOSE (test code = 2217) 122 MG/DL BUN (test code = 2208) 11 MG/DL CREATININE (test code = 2214) 0.65 MG/DL eGFR (2020 CKD-EPI) (test 111 ML/MIN/1.73 code = 28131) CALC BUN/CREAT (test code = 17 RATIO 2235) SODIUM (test code = 2231) 145 MEQ/L POTASSIUM (test code = 2228) 4.2 MEQ/L CHLORIDE (test code = 2215) 107 MEQ/L CARBON DIOXIDE (test code = 26 MEQ/L 220) CALCIUM (test code = 2209) 9.8 MG/DL PROTEIN, TOTAL (test code = 7.5 G/DL 222) ALBUMIN (test code = 2201) 4.5 G/DL CALC GLOBULIN (test code = 3.0 G/DL 2240) CALC A/G RATIO (test code = 1.5 RATIO 2234) BILIRUBIN, TOTAL (test code = 0.5 MG/DL 220) ALKALINE PHOSPHATASE (test 62 U/L code = 2204) AST (test code = 2218) 24 U/L ALT (test code = 2219) 38 U/L COMPREHENSIVE METABOLIC [id number] 00:00:00 Test Item Value Reference Range Interpretation Comments GLUCOSE (test code = 2217) 122 MG/DL BUN (test code = 2208) 11 MG/DL CREATININE (test code = 2214) 0.65 MG/DL eGFR (2020 CKD-EPI) (test 111 ML/MIN/1.73 code = 74800) CALC BUN/CREAT (test code = 17 RATIO [...] (test code = 2219) 38 U/L LIPID [id number] 00:00:00 Test Item Value Reference Range Interpretation Comments CHOLESTEROL (test code = 2210) 169 MG/DL TRIGLYCERIDES (test code = 2232) 346 MG/DL HDL CHOLESTEROL (test code = 2220) 32 MG/DL CALC LDL CHOL (test code = 2237) 91 MG/DL RISK RATIO LDL/HDL (test code = 2.84 RATIO 2238) LIPID [id number] 00:00:00 Test Item Value Reference Range Interpretation Comments CHOLESTEROL (test code = 2210) 169 MG/DL TRIGLYCERIDES (test code = 2232) 346 MG/DL HDL CHOLESTEROL (test code = 2220) 32 MG/DL CALC LDL CHOL (test code = 2237) 91 MG/DL RISK RATIO LDL/HDL (test code = 2.84 RATIO 2238) HEMOGLOBIN [id number] 00:00:00 Test Item Value Reference Range Interpretation Comments HEMOGLOBIN A1c (test code = 46833) 10.9 % HEMOGLOBIN [id number] 00:00:00 Test Item Value Reference Range Interpretation Comments HEMOGLOBIN A1c (test code = 99807) 10.9 % HEMOGLOBIN [id number] 00:00:00 Test Item Value Reference Range Interpretation Comments HEMOGLOBIN A1c (test code = 49960) 10.9 % COMPREHENSIVE METABOLIC [id number] 00:00:00 Test Item Value Reference Range Interpretation Comments GLUCOSE (test code = 2217) 122 MG/DL BUN (test code = 2208) 11 MG/DL CREATININE (test code = 2214) 0.65 MG/DL eGFR (2020 CKD-EPI) (test 111 ML/MIN/1.73 code = 65694) CALC BUN/CREAT (test code = 17 RATIO [...] code = 2219) 38 U/L COMPREHENSIVE METABOLIC [id number] 00:00:00 Test Item Value Reference Range Interpretation Comments GLUCOSE (test code = 2217) 122 MG/DL BUN (test code = 2208) 11 MG/DL CREATININE (test code = 2214) 0.65 MG/DL eGFR (2020 CKD-EPI) (test 111 ML/MIN/1.73 code = 84695) CALC BUN/CREAT (test code = 17 RATIO [...] (test code = 2219) 38 U/L LIPID [id number] 00:00:00 Test Item Value Reference Range Interpretation Comments CHOLESTEROL (test code = 2210) 169 MG/DL TRIGLYCERIDES (test code = 2232) 346 MG/DL HDL CHOLESTEROL (test code = 2220) 32 MG/DL CALC LDL CHOL (test code = 2237) 91 MG/DL RISK RATIO LDL/HDL (test code = 2.84 RATIO 2238) LIPID [id number] 00:00:00 Test Item Value Reference Range Interpretation Comments CHOLESTEROL (test code = 2210) 169 MG/DL TRIGLYCERIDES (test code = 2232) 346 MG/DL HDL CHOLESTEROL (test code = 2220) 32 MG/DL CALC LDL CHOL (test code = 2237) 91 MG/DL RISK RATIO LDL/HDL (test code = 2.84 RATIO 2238) HEMOGLOBIN [id number] 00:00:00 Test Item Value Reference Range Interpretation Comments HEMOGLOBIN A1c (test code = 93332) 10.9 % HEMOGLOBIN [id number] 00:00:00 Test Item Value Reference Range Interpretation Comments HEMOGLOBIN A1c (test code = 02388) 10.9 % HEMOGLOBIN [id number] 00:00:00 Test Item Value Reference Range Interpretation Comments HEMOGLOBIN A1c (test code = 37021) 10.9 % COMPREHENSIVE METABOLIC [id number] 00:00:00 Test Item Value Reference Range Interpretation Comments GLUCOSE (test code = 2217) 122 MG/DL BUN (test code = 2208) 11 MG/DL CREATININE (test code = 2214) 0.65 MG/DL eGFR (2020 CKD-EPI) (test 111 ML/MIN/1.73 code = 15350) CALC BUN/CREAT (test code = 17 RATIO 2235) SODIUM (test code = 2231) 145 MEQ/L POTASSIUM (test code = 2228) 4.2 MEQ/L CHLORIDE (test code = 2215) 107 MEQ/L CARBON DIOXIDE (test code = 26 MEQ/L 2205) CALCIUM (test code = 2209) 9.8 MG/DL PROTEIN, TOTAL (test code = 7.5 G/DL 2228) ALBUMIN (test code = 220) 4.5 G/DL CALC GLOBULIN (test code = 3.0 G/DL 2239) CALC A/G RATIO (test code = 1.5 RATIO 2234) BILIRUBIN, TOTAL (test code = 0.5 MG/DL 2206) ALKALINE PHOSPHATASE (test 62 U/L code = 2204) AST (test code = 2218) 24 U/L ALT (test code = 2219) 38 U/L COMPREHENSIVE METABOLIC [id number] 00:00:00 Test Item Value Reference Range Interpretation Comments GLUCOSE (test code = 2217) 122 MG/DL BUN (test code = 2208) 11 MG/DL CREATININE (test code = 2214) 0.65 MG/DL eGFR (2020 CKD-EPI) (test 111 ML/MIN/1.73 code = 68388) CALC BUN/CREAT (test code = 17 RATIO [...] (test code = 2219) 38 U/L LIPID [id number] 00:00:00 Test Item Value Reference Range Interpretation Comments CHOLESTEROL (test code = 2210) 169 MG/DL TRIGLYCERIDES (test code = 2232) 346 MG/DL HDL CHOLESTEROL (test code = 2220) 32 MG/DL CALC LDL CHOL (test code = 2237) 91 MG/DL RISK RATIO LDL/HDL (test code = 2.84 RATIO 2238) LIPID [id number] 00:00:00 Test Item Value Reference Range Interpretation Comments CHOLESTEROL (test code = 2210) 169 MG/DL TRIGLYCERIDES (test code = 2232) 346 MG/DL HDL CHOLESTEROL (test code = 2220) 32 MG/DL CALC LDL CHOL (test code = 2237) 91 MG/DL RISK RATIO LDL/HDL (test code = 2.84 RATIO 2238) HEMOGLOBIN [id number] 00:00:00 Test Item Value Reference Range Interpretation Comments HEMOGLOBIN A1c (test code = 09123) 10.9 % HEMOGLOBIN [id number] 00:00:00 Test Item Value Reference Range Interpretation Comments HEMOGLOBIN A1c (test code = 92749) 10.9 % HEMOGLOBIN [id number] 00:00:00 Test Item Value Reference Range Interpretation Comments HEMOGLOBIN A1c (test code = 05351) 10.9 % COMPREHENSIVE METABOLIC [id number] 00:00:00 Test Item Value Reference Range Interpretation Comments GLUCOSE (test code = 2217) 122 MG/DL BUN (test code = 2208) 11 MG/DL CREATININE (test code = 2214) 0.65 MG/DL eGFR (2020 CKD-EPI) (test 111 ML/MIN/1.73 code = 00647) CALC BUN/CREAT (test code = 17 RATIO [...] code = 2219) 38 U/L COMPREHENSIVE METABOLIC [id number] 00:00:00 Test Item Value Reference Range Interpretation Comments GLUCOSE (test code = 2217) 122 MG/DL BUN (test code = 2208) 11 MG/DL CREATININE (test code = 2214) 0.65 MG/DL eGFR (2020 CKD-EPI) (test 111 ML/MIN/1.73 code = 01269) CALC BUN/CREAT (test code = 17 RATIO [...] (test code = 2219) 38 U/L LIPID [id number] 00:00:00 Test Item Value Reference Range Interpretation Comments CHOLESTEROL (test code = 2210) 169 MG/DL TRIGLYCERIDES (test code = 2232) 346 MG/DL HDL CHOLESTEROL (test code = 2220) 32 MG/DL CALC LDL CHOL (test code = 2237) 91 MG/DL RISK RATIO LDL/HDL (test code = 2.84 RATIO 2238) LIPID [id number] 00:00:00 Test Item Value Reference Range Interpretation Comments CHOLESTEROL (test code = 2210) 169 MG/DL TRIGLYCERIDES (test code = 2232) 346 MG/DL HDL CHOLESTEROL (test code = 2220) 32 MG/DL CALC LDL CHOL (test code = 2237) 91 MG/DL RISK RATIO LDL/HDL (test code = 2.84 RATIO 2238) HEMOGLOBIN [id number] 00:00:00 Test Item Value Reference Range Interpretation Comments HEMOGLOBIN A1c (test code = 34417) 10.9 % HEMOGLOBIN [id number] 00:00:00 Test Item Value Reference Range Interpretation Comments HEMOGLOBIN A1c (test code = 60282) 10.9 % HEMOGLOBIN [id number] 00:00:00 Test Item Value Reference Range Interpretation Comments HEMOGLOBIN A1c (test code = 29515) 10.9 % COMPREHENSIVE METABOLIC [id number] 00:00:00 Test Item Value Reference Range Interpretation Comments GLUCOSE (test code = 2217) 122 MG/DL BUN (test code = 2208) 11 MG/DL CREATININE (test code = 2214) 0.65 MG/DL eGFR (2020 CKD-EPI) (test 111 ML/MIN/1.73 code = 97832) CALC BUN/CREAT (test code = 17 RATIO 2235) SODIUM (test code = 2231) 145 MEQ/L POTASSIUM (test code = 2228) 4.2 MEQ/L CHLORIDE (test code = 2215) 107 MEQ/L CARBON DIOXIDE (test code = 26 MEQ/L 2206) CALCIUM (test code = 2209) 9.8 MG/DL PROTEIN, TOTAL (test code = 7.5 G/DL 222) ALBUMIN (test code = 2201) 4.5 G/DL CALC GLOBULIN (test code = 3.0 G/DL 2240) CALC A/G RATIO (test code = 1.5 RATIO 2234) BILIRUBIN, TOTAL (test code = 0.5 MG/DL 2206) ALKALINE PHOSPHATASE (test 62 U/L code = 2204) AST (test code = 2218) 24 U/L ALT (test code = 2219) 38 U/L COMPREHENSIVE METABOLIC [id number] 00:00:00 Test Item Value Reference Range Interpretation Comments GLUCOSE (test code = 2217) 122 MG/DL BUN (test code = 2208) 11 MG/DL CREATININE (test code = 2214) 0.65 MG/DL eGFR (2020 CKD-EPI) (test 111 ML/MIN/1.73 code = 25078) CALC BUN/CREAT (test code = 17 RATIO 2235) SODIUM (test code = 2231) 145 MEQ/L POTASSIUM (test code = 2228) 4.2 MEQ/L CHLORIDE (test code = 2215) 107 MEQ/L CARBON DIOXIDE (test code = 26 MEQ/L 2206) CALCIUM (test code = 2209) 9.8 MG/DL PROTEIN, TOTAL (test code = 7.5 G/DL 2229) ALBUMIN (test code = 2201) 4.5 G/DL CALC GLOBULIN (test code = 3.0 G/DL 2240) CALC A/G RATIO (test code = 1.5 RATIO 2234) BILIRUBIN, TOTAL (test code = 0.5 MG/DL 7) ALKALINE PHOSPHATASE (test 62 U/L code = 2204) AST (test code = 2218) 24 U/L ALT (test code = 2219) 38 U/L LIPID [id number] 00:00:00 Test Item Value Reference Range Interpretation Comments CHOLESTEROL (test code = 2210) 169 MG/DL TRIGLYCERIDES (test code = 2232) 346 MG/DL HDL CHOLESTEROL (test code = 2220) 32 MG/DL CALC LDL CHOL (test code = 2237) 91 MG/DL RISK RATIO LDL/HDL (test code = 2.84 RATIO 2238) LIPID [id number] 00:00:00 Test Item Value Reference Range Interpretation Comments CHOLESTEROL (test code = 2210) 169 MG/DL TRIGLYCERIDES (test code = 2232) 346 MG/DL HDL CHOLESTEROL (test code = 2220) 32 MG/DL CALC LDL CHOL (test code = 2237) 91 MG/DL RISK RATIO LDL/HDL (test code = 2.84 RATIO 2238) HEMOGLOBIN [id number] 00:00:00 Test Item Value Reference Range Interpretation Comments HEMOGLOBIN A1c (test code = 11565) 10.9 % HEMOGLOBIN [id number] 00:00:00 Test Item Value Reference Range Interpretation Comments HEMOGLOBIN A1c (test code = 42241) 10.9 % HEMOGLOBIN [id number] 00:00:00 Test Item Value Reference Range Interpretation Comments HEMOGLOBIN A1c (test code = 96270) 10.9 % COMPREHENSIVE METABOLIC [id number] 00:00:00 Test Item Value Reference Range Interpretation Comments GLUCOSE (test code = 2217) 122 MG/DL BUN (test code = 2208) 11 MG/DL CREATININE (test code = 2214) 0.65 MG/DL eGFR (2020 CKD-EPI) (test 111 ML/MIN/1.73 code = 93246) CALC BUN/CREAT (test code = 17 RATIO 2234) SODIUM (test code = 2231) 145 MEQ/L POTASSIUM (test code = 2228) 4.2 MEQ/L CHLORIDE (test code = 2215) 107 MEQ/L CARBON DIOXIDE (test code = 26 MEQ/L 2205) CALCIUM (test code = 2209) 9.8 MG/DL PROTEIN, TOTAL (test code = 7.5 G/DL 2228) ALBUMIN (test code = 220) 4.5 G/DL CALC GLOBULIN (test code = 3.0 G/DL 2239) CALC A/G RATIO (test code = 1.5 RATIO 2233) BILIRUBIN, TOTAL (test code = 0.5 MG/DL 2206) ALKALINE PHOSPHATASE (test 62 U/L code = 2204) AST (test code = 2218) 24 U/L ALT (test code = 2219) 38 U/L COMPREHENSIVE METABOLIC [id number] 00:00:00 Test Item Value Reference Range Interpretation Comments GLUCOSE (test code = 2217) 122 MG/DL BUN (test code = 2208) 11 MG/DL CREATININE (test code = 2214) 0.65 MG/DL eGFR (2020 CKD-EPI) (test 111 ML/MIN/1.73 code = 23325) CALC BUN/CREAT (test code = 17 RATIO [...] (test code = 2219) 38 U/L LIPID [id number] 00:00:00 Test Item Value Reference Range Interpretation Comments CHOLESTEROL (test code = 2210) 169 MG/DL TRIGLYCERIDES (test code = 2232) 346 MG/DL HDL CHOLESTEROL (test code = 2220) 32 MG/DL CALC LDL CHOL (test code = 2237) 91 MG/DL RISK RATIO LDL/HDL (test code = 2.84 RATIO 2238) LIPID [id number] 00:00:00 Test Item Value Reference Range Interpretation Comments CHOLESTEROL (test code = 2210) 169 MG/DL TRIGLYCERIDES (test code = 2232) 346 MG/DL HDL CHOLESTEROL (test code = 2220) 32 MG/DL CALC LDL CHOL (test code = 2237) 91 MG/DL RISK RATIO LDL/HDL (test code = 2.84 RATIO 2238) HEMOGLOBIN [id number] 00:00:00 Test Item Value Reference Range Interpretation Comments HEMOGLOBIN A1c (test code = 41990) 10.9 % HEMOGLOBIN [id number] 00:00:00 Test Item Value Reference Range Interpretation Comments HEMOGLOBIN A1c (test code = 61217) 10.9 % HEMOGLOBIN [id number] 00:00:00 Test Item Value Reference Range Interpretation Comments HEMOGLOBIN A1c (test code = 91337) 10.9 % COMPREHENSIVE METABOLIC [id number] 00:00:00 Test Item Value Reference Range Interpretation Comments GLUCOSE (test code = 2217) 122 MG/DL BUN (test code = 2208) 11 MG/DL CREATININE (test code = 2214) 0.65 MG/DL eGFR (2020 CKD-EPI) (test 111 ML/MIN/1.73 code = 22735) CALC BUN/CREAT (test code = 17 RATIO [...] RATIO 4) BILIRUBIN, TOTAL (test code = 0.5 MG/DL 2206) ALKALINE PHOSPHATASE (test 62 U/L code = 2204) AST (test code = 2218) 24 U/L ALT (test code = 2219) 38 U/L COMPREHENSIVE METABOLIC [id number] 00:00:00 Test Item Value Reference Range Interpretation Comments GLUCOSE (test code = 2217) 122 MG/DL BUN (test code = 2208) 11 MG/DL CREATININE (test code = 2214) 0.65 MG/DL eGFR (2020 CKD-EPI) (test 111 ML/MIN/1.73 code = 98110) CALC BUN/CREAT (test code = 17 RATIO [...] (test code = 2219) 38 U/L LIPID [id number] 00:00:00 Test Item Value Reference Range Interpretation Comments CHOLESTEROL (test code = 2210) 169 MG/DL TRIGLYCERIDES (test code = 2232) 346 MG/DL HDL CHOLESTEROL (test code = 2220) 32 MG/DL CALC LDL CHOL (test code = 2237) 91 MG/DL RISK RATIO LDL/HDL (test code = 2.84 RATIO 2238) LIPID [id number] 00:00:00 Test Item Value Reference Range Interpretation Comments CHOLESTEROL (test code = 2210) 169 MG/DL TRIGLYCERIDES (test code = 2232) 346 MG/DL HDL CHOLESTEROL (test code = 2220) 32 MG/DL CALC LDL CHOL (test code = 2237) 91 MG/DL RISK RATIO LDL/HDL (test code = 2.84 RATIO 2238) HEMOGLOBIN [id number] 00:00:00 Test Item Value Reference Range Interpretation Comments HEMOGLOBIN A1c (test code = 44569) 10.9 % HEMOGLOBIN [id number] 00:00:00 Test Item Value Reference Range Interpretation Comments HEMOGLOBIN A1c (test code = 74449) 10.9 % HEMOGLOBIN [id number] 00:00:00 Test Item Value Reference Range Interpretation Comments HEMOGLOBIN A1c (test code = 42734) 10.9 % COMPREHENSIVE METABOLIC [id number] 00:00:00 Test Item Value Reference Range Interpretation Comments GLUCOSE (test code = 2217) 122 MG/DL BUN (test code = 2208) 11 MG/DL CREATININE (test code = 2214) 0.65 MG/DL eGFR (2020 CKD-EPI) (test 111 ML/MIN/1.73 code = 05379) CALC BUN/CREAT (test code = 17 RATIO 2235) SODIUM (test code = 2231) 145 MEQ/L POTASSIUM (test code = 2228) 4.2 MEQ/L CHLORIDE (test code = 2215) 107 MEQ/L CARBON DIOXIDE (test code = 26 MEQ/L 220) CALCIUM (test code = 2209) 9.8 MG/DL [...] code = 2219) 38 U/L COMPREHENSIVE METABOLIC [id number] 00:00:00 Test Item Value Reference Range Interpretation Comments GLUCOSE (test code = 2217) 122 MG/DL BUN (test code = 2208) 11 MG/DL CREATININE (test code = 2214) 0.65 MG/DL eGFR (2020 CKD-EPI) (test 111 ML/MIN/1.73 code = 91471) CALC BUN/CREAT (test code = 17 RATIO [...] BILIRUBIN, TOTAL (test code = 0.5 MG/DL 7) ALKALINE PHOSPHATASE (test 62 U/L code = 2204) AST (test code = 2218) 24 U/L ALT (test code = 2219) 38 U/L LIPID [id number] 00:00:00 Test Item Value Reference Range Interpretation Comments CHOLESTEROL (test code = 2210) 169 MG/DL TRIGLYCERIDES (test code = 2232) 346 MG/DL HDL CHOLESTEROL (test code = 2220) 32 MG/DL CALC LDL CHOL (test code = 2237) 91 MG/DL RISK RATIO LDL/HDL (test code = 2.84 RATIO 2238) LIPID [id number] 00:00:00 Test Item Value Reference Range Interpretation Comments CHOLESTEROL (test code = 2210) 169 MG/DL TRIGLYCERIDES (test code = 2232) 346 MG/DL HDL CHOLESTEROL (test code = 2220) 32 MG/DL CALC LDL CHOL (test code = 2237) 91 MG/DL RISK RATIO LDL/HDL (test code = 2.84 RATIO 2238) HEMOGLOBIN [id number] 00:00:00 Test Item Value Reference Range Interpretation Comments HEMOGLOBIN A1c (test code = 15485) 10.9 % HEMOGLOBIN [id number] 00:00:00 Test Item Value Reference Range Interpretation Comments HEMOGLOBIN A1c (test code = 82206) 10.9 % HEMOGLOBIN [id number] 00:00:00 Test Item Value Reference Range Interpretation Comments HEMOGLOBIN A1c (test code = 59945) 10.9 % COMPREHENSIVE METABOLIC [id number] 00:00:00 Test Item Value Reference Range Interpretation Comments GLUCOSE (test code = 2217) 122 MG/DL BUN (test code = 2208) 11 MG/DL CREATININE (test code = 2214) 0.65 MG/DL eGFR (2020 CKD-EPI) (test 111 ML/MIN/1.73 code = 59416) CALC BUN/CREAT (test code = 17 RATIO [...] code = 2219) 38 U/L COMPREHENSIVE METABOLIC [id number] 00:00:00 Test Item Value Reference Range Interpretation Comments GLUCOSE (test code = 2217) 122 MG/DL BUN (test code = 2208) 11 MG/DL CREATININE (test code = 2214) 0.65 MG/DL eGFR (2020 CKD-EPI) (test 111 ML/MIN/1.73 code = 62267) CALC BUN/CREAT (test code = 17 RATIO [...] RATIO 4) BILIRUBIN, TOTAL (test code = 0.5 MG/DL 2206) ALKALINE PHOSPHATASE (test 62 U/L code = 2204) AST (test code = 2218) 24 U/L ALT (test code = 2219) 38 U/L LIPID [id number] 00:00:00 Test Item Value Reference Range Interpretation Comments CHOLESTEROL (test code = 2210) 169 MG/DL TRIGLYCERIDES (test code = 2232) 346 MG/DL HDL CHOLESTEROL (test code = 2220) 32 MG/DL CALC LDL CHOL (test code = 2237) 91 MG/DL RISK RATIO LDL/HDL (test code = 2.84 RATIO 2238) LIPID [id number] 00:00:00 Test Item Value Reference Range Interpretation Comments CHOLESTEROL (test code = 2210) 169 MG/DL TRIGLYCERIDES (test code = 2232) 346 MG/DL HDL CHOLESTEROL (test code = 2220) 32 MG/DL CALC LDL CHOL (test code = 2237) 91 MG/DL RISK RATIO LDL/HDL (test code = 2.84 RATIO 2238) HEMOGLOBIN [id number] 00:00:00 Test Item Value Reference Range Interpretation Comments HEMOGLOBIN A1c (test code = 19674) 10.9 % HEMOGLOBIN [id number] 00:00:00 Test Item Value Reference Range Interpretation Comments HEMOGLOBIN A1c (test code = 70827) 10.9 % HEMOGLOBIN [id number] 00:00:00 Test Item Value Reference Range Interpretation Comments HEMOGLOBIN A1c (test code = 53079) 10.9 % VITAMIN D, 25 [id number] 04:13:44 Test Item Value Reference Range Interpretation Comments VITAMIN D, 25 OH 18 NG/ML SEE BELOW L NOTE: 25-H YDROXYVITAMIN D (test code = 4958) ASSAY INC LUDES 25-HYDROXYVITAM IN D2 AND D3. METHODOLOGY IS CHEMILUMINESCEN T IMMUNOASSAY. INTERPRETIVE RA NGES PEDIATRIC (<17 YEARS) . . . . . . . . . . . NG/ML 20-100ADULT: IN SUFFICIENT . . . . . . . . . . . . . . NG/ML <20 SUBOP TIMAL . . . . . . . . . . . . . . . NG/ML 20-29 OP TIMAL . . . . . . . . . . . . . . . . . NG/ML 30-100 UN LESS OTHERWISE INDIC ATED, ALL TESTING PERFORM ED ATCLINICAL PATH [facility], [facility]. [address] [place] [id number] LABORATORY DIRE CTOR: Carlos Enrique BERNARD. CLIA NUMBER [id number] CAP ACCREDITATION N O. [id number] HIV 1/2 4TH GEN, RFLX [id number] 03:26:41 Test Item Value Reference Range Interpretation Comments HIV 1/2 4TH GEN, RFLX CONF (test NON-REACTIVE NON-REACTIVE code = 3514) ALBUMIN, URINE, [id number] 02:46:02 Test Item Value Reference Range Interpretation Comments ALBUMIN, URINE, RANDOM (test code 10.2 MG/DL NOT ESTAB = 07016) MICROALBUMIN, [id number] 00:00:00 Test Item Value Reference Range Interpretation Comments ALBUMIN, URINE, RANDOM (test code 10.2 MG/DL = 61471) MICROALBUMIN, [id number] 00:00:00 Test Item Value Reference Range Interpretation Comments ALBUMIN, URINE, RANDOM (test code 10.2 MG/DL = 13514) HIV AB/AG COMBO RFLX [id number] 00:00:00 Test Item Value Reference Range Interpretation Comments HIV 1/2 4TH GEN, RFLX CONF (test NON-REACTIVE code = 3514) HIV AB/AG COMBO RFLX [id number] 00:00:00 Test Item Value Reference Range Interpretation Comments HIV 1/2 4TH GEN, RFLX CONF (test NON-REACTIVE code = 3514) VITAMIN D, 25 [id number] 00:00:00 Test Item Value Reference Range Interpretation Comments VITAMIN D, 25 OH (test code = 4958) 18 NG/ML VITAMIN D, 25 [id number] 00:00:00 Test Item Value Reference Range Interpretation Comments VITAMIN D, 25 OH (test code = 4958) 18 NG/ML MICROALBUMIN, [id number] 00:00:00 Test Item Value Reference Range Interpretation Comments ALBUMIN, URINE, RANDOM (test code 10.2 MG/DL = 51309) MICROALBUMIN, [id number] 00:00:00 Test Item Value Reference Range Interpretation Comments ALBUMIN, URINE, RANDOM (test code 10.2 MG/DL = 88829) HIV AB/AG COMBO RFLX [id number] 00:00:00 Test Item Value Reference Range Interpretation Comments HIV 1/2 4TH GEN, RFLX CONF (test NON-REACTIVE code = 3514) HIV AB/AG COMBO RFLX [id number] 00:00:00 Test Item Value Reference Range Interpretation Comments HIV 1/2 4TH GEN, RFLX CONF (test NON-REACTIVE code = 3514) VITAMIN D, 25 [id number] 00:00:00 Test Item Value Reference Range Interpretation Comments VITAMIN D, 25 OH (test code = 4958) 18 NG/ML VITAMIN D, 25 [id number] 00:00:00 Test Item Value Reference Range Interpretation Comments VITAMIN D, 25 OH (test code = 4958) 18 NG/ML MICROALBUMIN, [id number] 00:00:00 Test Item Value Reference Range Interpretation Comments ALBUMIN, URINE, RANDOM (test code 10.2 MG/DL = 67058) MICROALBUMIN, [id number] 00:00:00 Test Item Value Reference Range Interpretation Comments ALBUMIN, URINE, RANDOM (test code 10.2 MG/DL = 64262) HIV AB/AG COMBO RFLX [id number] 00:00:00 Test Item Value Reference Range Interpretation Comments HIV 1/2 4TH GEN, RFLX CONF (test NON-REACTIVE code = 3514) HIV AB/AG COMBO RFLX [id number] 00:00:00 Test Item Value Reference Range Interpretation Comments HIV 1/2 4TH GEN, RFLX CONF (test NON-REACTIVE code = 3514) VITAMIN D, 25 [id number] 00:00:00 Test Item Value Reference Range Interpretation Comments VITAMIN D, 25 OH (test code = 4958) 18 NG/ML VITAMIN D, 25 [id number] 00:00:00 Test Item Value Reference Range Interpretation Comments VITAMIN D, 25 OH (test code = 4958) 18 NG/ML MICROALBUMIN, [id number] 00:00:00 Test Item Value Reference Range Interpretation Comments ALBUMIN, URINE, RANDOM (test code 10.2 MG/DL = 84137) MICROALBUMIN, [id number] 00:00:00 Test Item Value Reference Range Interpretation Comments ALBUMIN, URINE, RANDOM (test code 10.2 MG/DL = 95158) HIV AB/AG COMBO RFLX [id number] 00:00:00 Test Item Value Reference Range Interpretation Comments HIV 1/2 4TH GEN, RFLX CONF (test NON-REACTIVE code = 3514) HIV AB/AG COMBO RFLX [id number] 00:00:00 Test Item Value Reference Range Interpretation Comments HIV 1/2 4TH GEN, RFLX CONF (test NON-REACTIVE code = 3514) VITAMIN D, 25 [id number] 00:00:00 Test Item Value Reference Range Interpretation Comments VITAMIN D, 25 OH (test code = 4958) 18 NG/ML VITAMIN D, 25 [id number] 00:00:00 Test Item Value Reference Range Interpretation Comments VITAMIN D, 25 OH (test code = 4958) 18 NG/ML MICROALBUMIN, [id number] 00:00:00 Test Item Value Reference Range Interpretation Comments ALBUMIN, URINE, RANDOM (test code 10.2 MG/DL = 80600) MICROALBUMIN, [id number] 00:00:00 Test Item Value Reference Range Interpretation Comments ALBUMIN, URINE, RANDOM (test code 10.2 MG/DL = 59322) HIV AB/AG COMBO RFLX [id number] 00:00:00 Test Item Value Reference Range Interpretation Comments HIV 1/2 4TH GEN, RFLX CONF (test NON-REACTIVE code = 3514) HIV AB/AG COMBO RFLX [id number] 00:00:00 Test Item Value Reference Range Interpretation Comments HIV 1/2 4TH GEN, RFLX CONF (test NON-REACTIVE code = 3514) VITAMIN D, 25 [id number] 00:00:00 Test Item Value Reference Range Interpretation Comments VITAMIN D, 25 OH (test code = 4958) 18 NG/ML VITAMIN D, 25 [id number] 00:00:00 Test Item Value Reference Range Interpretation Comments VITAMIN D, 25 OH (test code = 4958) 18 NG/ML MICROALBUMIN, [id number] 00:00:00 Test Item Value Reference Range Interpretation Comments ALBUMIN, URINE, RANDOM (test code 10.2 MG/DL = 03577) MICROALBUMIN, [id number] 00:00:00 Test Item Value Reference Range Interpretation Comments ALBUMIN, URINE, RANDOM (test code 10.2 MG/DL = 48076) HIV AB/AG COMBO RFLX [id number] 00:00:00 Test Item Value Reference Range Interpretation Comments HIV 1/2 4TH GEN, RFLX CONF (test NON-REACTIVE code = 3514) HIV AB/AG COMBO RFLX [id number] 00:00:00 Test Item Value Reference Range Interpretation Comments HIV 1/2 4TH GEN, RFLX CONF (test NON-REACTIVE code = 3514) VITAMIN D, 25 [id number] 00:00:00 Test Item Value Reference Range Interpretation Comments VITAMIN D, 25 OH (test code = 4958) 18 NG/ML VITAMIN D, 25 [id number] 00:00:00 Test Item Value Reference Range Interpretation Comments VITAMIN D, 25 OH (test code = 4958) 18 NG/ML MICROALBUMIN, [id number] 00:00:00 Test Item Value Reference Range Interpretation Comments ALBUMIN, URINE, RANDOM (test code 10.2 MG/DL = 53793) MICROALBUMIN, [id number] 00:00:00 Test Item Value Reference Range Interpretation Comments ALBUMIN, URINE, RANDOM (test code 10.2 MG/DL = 94423) HIV AB/AG COMBO RFLX [id number] 00:00:00 Test Item Value Reference Range Interpretation Comments HIV 1/2 4TH GEN, RFLX CONF (test NON-REACTIVE code = 3514) HIV AB/AG COMBO RFLX [id number] 00:00:00 Test Item Value Reference Range Interpretation Comments HIV 1/2 4TH GEN, RFLX CONF (test NON-REACTIVE code = 3514) VITAMIN D, 25 [id number] 00:00:00 Test Item Value Reference Range Interpretation Comments VITAMIN D, 25 OH (test code = 4958) 18 NG/ML VITAMIN D, 25 [id number] 00:00:00 Test Item Value Reference Range Interpretation Comments VITAMIN D, 25 OH (test code = 4958) 18 NG/ML MICROALBUMIN, [id number] 00:00:00 Test Item Value Reference Range Interpretation Comments ALBUMIN, URINE, RANDOM (test code 10.2 MG/DL = 32049) HIV AB/AG COMBO RFLX [id number] 00:00:00 Test Item Value Reference Range Interpretation Comments HIV 1/2 4TH GEN, RFLX CONF (test NON-REACTIVE code = 3514) MICROALBUMIN, [id number] 00:00:00 Test Item Value Reference Range Interpretation Comments ALBUMIN, URINE, RANDOM (test code 10.2 MG/DL = 27371) MICROALBUMIN, [id number] 00:00:00 Test Item Value Reference Range Interpretation Comments ALBUMIN, URINE, RANDOM (test code 10.2 MG/DL = 01265) HIV AB/AG COMBO RFLX [id number] 00:00:00 Test Item Value Reference Range Interpretation Comments HIV 1/2 4TH GEN, RFLX CONF (test NON-REACTIVE code = 3514) HIV AB/AG COMBO RFLX [id number] 00:00:00 Test Item Value Reference Range Interpretation Comments HIV 1/2 4TH GEN, RFLX CONF (test NON-REACTIVE code = 3514) VITAMIN D, 25 [id number] 00:00:00 Test Item Value Reference Range Interpretation Comments VITAMIN D, 25 OH (test code = 4958) 18 NG/ML VITAMIN D, 25 [id number] 00:00:00 Test Item Value Reference Range Interpretation Comments VITAMIN D, 25 OH (test code = 4958) 18 NG/ML VITAMIN D, 25 [id number] 00:00:00 Test Item Value Reference Range Interpretation Comments VITAMIN D, 25 OH (test code = 4958) 18 NG/ML MICROALBUMIN, [id number] 00:00:00 Test Item Value Reference Range Interpretation Comments ALBUMIN, URINE, RANDOM (test code 10.2 MG/DL = 26809) MICROALBUMIN, [id number] 00:00:00 Test Item Value Reference Range Interpretation Comments ALBUMIN, URINE, RANDOM (test code 10.2 MG/DL = 63143) HIV AB/AG COMBO RFLX [id number] 00:00:00 Test Item Value Reference Range Interpretation Comments HIV 1/2 4TH GEN, RFLX CONF (test NON-REACTIVE code = 3514) HIV AB/AG COMBO RFLX [id number] 00:00:00 Test Item Value Reference Range Interpretation Comments HIV 1/2 4TH GEN, RFLX CONF (test NON-REACTIVE code = 3514) VITAMIN D, 25 [id number] 00:00:00 Test Item Value Reference Range Interpretation Comments VITAMIN D, 25 OH (test code = 4958) 18 NG/ML VITAMIN D, 25 [id number] 00:00:00 Test Item Value Reference Range Interpretation Comments VITAMIN D, 25 OH (test code = 4958) 18 NG/ML MICROALBUMIN, [id number] 00:00:00 Test Item Value Reference Range Interpretation Comments ALBUMIN, URINE, RANDOM (test code 10.2 MG/DL = 73092) MICROALBUMIN, [id number] 00:00:00 Test Item Value Reference Range Interpretation Comments ALBUMIN, URINE, RANDOM (test code 10.2 MG/DL = 08669) HIV AB/AG COMBO RFLX [id number] 00:00:00 Test Item Value Reference Range Interpretation Comments HIV 1/2 4TH GEN, RFLX CONF (test NON-REACTIVE code = 3514) HIV AB/AG COMBO RFLX [id number] 00:00:00 Test Item Value Reference Range Interpretation Comments HIV 1/2 4TH GEN, RFLX CONF (test NON-REACTIVE code = 3514) VITAMIN D, 25 [id number] 00:00:00 Test Item Value Reference Range Interpretation Comments VITAMIN D, 25 OH (test code = 4958) 18 NG/ML VITAMIN D, 25 [id number] 00:00:00 Test Item Value Reference Range Interpretation Comments VITAMIN D, 25 OH (test code = 4958) 18 NG/ML LIPID [id number] 02:15:07 Test Item Value Reference Range Interpretation [...] MOREINFORMATION , SEE CLIENT ANNOUNCE MENT AT [email or web address] CalcLDL-C RISK RATIO LDL/HDL (NOTE) RATIO <3.22 UNABLE T O CALCULATE (test code = 223) COMPREHENSIVE METABOLIC [id number] 02:15:07 Test Item Value Reference Range Interpretation Comments GLUCOSE (test code = 349 MG/DL 70-99 H 2216) BUN (test code = 17 MG/DL -2207) CREATININE (test 0.80 MG/DL 0.60-1.30 code = 221) eGFR (2020 CKD-EPI) 94 ML/MIN/1.73 >60 (test code = 81799) CALC BUN/CREAT (test 21 RATIO - code = 2235) SODIUM (test code = 137 MEQ/L 296-000 9989) POTASSIUM (test code 4.2 MEQ/L 3.5-5.4 = [...] code = 39 U/L 5-40 2218) LIPID [id number] 00:00:00 Test Item Value Reference Range Interpretation Comments CHOLESTEROL (test code = 2210) 206 MG/DL TRIGLYCERIDES (test code = 2232) 1120 MG/DL HDL CHOLESTEROL (test code = 24 MG/DL 0) CALC LDL CHOL (test code = 2237) (NOTE) MG/DL RISK RATIO LDL/HDL (test code = (NOTE) RATIO 2238) LIPID [id number] 00:00:00 Test Item Value Reference Range Interpretation Comments CHOLESTEROL (test code = 2210) 206 MG/DL TRIGLYCERIDES (test code = 2232) 1120 MG/DL HDL CHOLESTEROL (test code = 24 MG/DL 2220) CALC LDL CHOL (test code = 2237) (NOTE) MG/DL RISK RATIO LDL/HDL (test code = (NOTE) RATIO 2238) COMPREHENSIVE METABOLIC [id number] 00:00:00 Test Item Value Reference Range Interpretation Comments GLUCOSE (test code = 2217) 349 MG/DL BUN (test code = 2208) 17 MG/DL CREATININE (test code = 2214) 0.80 MG/DL eGFR (2020 CKD-EPI) (test code 94 ML/MIN/1.73 = 33237) CALC BUN/CREAT (test code = 21 RATIO 2235) SODIUM (test code = 2231) 137 MEQ/L POTASSIUM (test code = 2228) 4.2 MEQ/L CHLORIDE (test code = 2215) 99 MEQ/L CARBON DIOXIDE (test code = 16 MEQ/L 6) CALCIUM (test code = 2209) [...] code = 2219) 39 U/L COMPREHENSIVE METABOLIC [id number] 00:00:00 Test Item Value Reference Range Interpretation Comments GLUCOSE (test code = 7) 349 MG/DL BUN (test code = 2208) 17 MG/DL CREATININE (test code = 2214) 0.80 MG/DL eGFR (2020 CKD-EPI) (test code 94 ML/MIN/1.73 = 96323) CALC BUN/CREAT (test code = 21 RATIO [...] (test code = 2219) 39 U/L LIPID [id number] 00:00:00 Test Item Value Reference Range Interpretation Comments CHOLESTEROL (test code = 2210) 206 MG/DL TRIGLYCERIDES (test code = 2232) 1120 MG/DL HDL CHOLESTEROL (test code = 24 MG/DL 2220) CALC LDL CHOL (test code = 2237) (NOTE) MG/DL RISK RATIO LDL/HDL (test code = (NOTE) RATIO 2238) LIPID [id number] 00:00:00 Test Item Value Reference Range Interpretation Comments CHOLESTEROL (test code = 2210) 206 MG/DL TRIGLYCERIDES (test code = 2232) 1120 MG/DL HDL CHOLESTEROL (test code = 24 MG/DL 2220) CALC LDL CHOL (test code = 2237) (NOTE) MG/DL RISK RATIO LDL/HDL (test code = (NOTE) RATIO 2238) COMPREHENSIVE METABOLIC [id number] 00:00:00 Test Item Value Reference Range Interpretation Comments GLUCOSE (test code = 2217) 349 MG/DL BUN (test code = 2208) 17 MG/DL CREATININE (test code = 2214) 0.80 MG/DL eGFR (2020 CKD-EPI) (test code 94 ML/MIN/1.73 = 35636) CALC BUN/CREAT (test code = 21 RATIO [...] code = 2219) 39 U/L COMPREHENSIVE METABOLIC [id number] 00:00:00 Test Item Value Reference Range Interpretation Comments GLUCOSE (test code = 2217) 349 MG/DL BUN (test code = 2208) 17 MG/DL CREATININE (test code = 2214) 0.80 MG/DL eGFR (2020 CKD-EPI) (test code 94 ML/MIN/1.73 = 74950) CALC BUN/CREAT (test code = 21 RATIO 2235) SODIUM (test code = 2231) 137 MEQ/L POTASSIUM (test code = 2228) 4.2 MEQ/L CHLORIDE (test code = 2215) 99 MEQ/L CARBON DIOXIDE (test code = 16 MEQ/L 2205) CALCIUM (test code = 2209) 10.0 MG/DL PROTEIN, TOTAL (test code = 7.8 G/DL 2229) ALBUMIN (test code = 2201) 4.8 G/DL CALC GLOBULIN (test code = 3.0 G/DL 2240) CALC A/G RATIO (test code = 1.6 RATIO 2234) BILIRUBIN, TOTAL (test code = 0.2 MG/DL 2206) ALKALINE PHOSPHATASE (test 69 U/L code = 2204) AST (test code = 2218) 21 U/L ALT (test code = 2219) 39 U/L LIPID [id number] 00:00:00 Test Item Value Reference Range Interpretation Comments CHOLESTEROL (test code = 2210) 206 MG/DL TRIGLYCERIDES (test code = 2232) 1120 MG/DL HDL CHOLESTEROL (test code = 24 MG/DL 2220) CALC LDL CHOL (test code = 2237) (NOTE) MG/DL RISK RATIO LDL/HDL (test code = (NOTE) RATIO 2238) LIPID [id number] 00:00:00 Test Item Value Reference Range Interpretation Comments CHOLESTEROL (test code = 2210) 206 MG/DL TRIGLYCERIDES (test code = 2232) 1120 MG/DL HDL CHOLESTEROL (test code = 24 MG/DL 2220) CALC LDL CHOL (test code = 2237) (NOTE) MG/DL RISK RATIO LDL/HDL (test code = (NOTE) RATIO 2238) COMPREHENSIVE METABOLIC [id number] 00:00:00 Test Item Value Reference Range Interpretation Comments GLUCOSE (test code = 2217) 349 MG/DL BUN (test code = 2208) 17 MG/DL CREATININE (test code = 2214) 0.80 MG/DL eGFR (2020 CKD-EPI) (test code 94 ML/MIN/1.73 = 46193) CALC BUN/CREAT (test code = 21 RATIO [...] code = 2219) 39 U/L COMPREHENSIVE METABOLIC [id number] 00:00:00 Test Item Value Reference Range Interpretation Comments GLUCOSE (test code = 2217) 349 MG/DL BUN (test code = 2208) 17 MG/DL CREATININE (test code = 2214) 0.80 MG/DL eGFR (2020 CKD-EPI) (test code 94 ML/MIN/1.73 = 10944) CALC BUN/CREAT (test code = 21 RATIO [...] (test code = 2219) 39 U/L LIPID [id number] 00:00:00 Test Item Value Reference Range Interpretation Comments CHOLESTEROL (test code = 2210) 206 MG/DL TRIGLYCERIDES (test code = 2232) 1120 MG/DL HDL CHOLESTEROL (test code = 24 MG/DL 2220) CALC LDL CHOL (test code = 2237) (NOTE) MG/DL RISK RATIO LDL/HDL (test code = (NOTE) RATIO 2238) LIPID [id number] 00:00:00 Test Item Value Reference Range Interpretation Comments CHOLESTEROL (test code = 2210) 206 MG/DL TRIGLYCERIDES (test code = 2232) 1120 MG/DL HDL CHOLESTEROL (test code = 24 MG/DL 2220) CALC LDL CHOL (test code = 2237) (NOTE) MG/DL RISK RATIO LDL/HDL (test code = (NOTE) RATIO 2238) COMPREHENSIVE METABOLIC [id number] 00:00:00 Test Item Value Reference Range Interpretation Comments GLUCOSE (test code = 2217) 349 MG/DL BUN (test code = 2208) 17 MG/DL CREATININE (test code = 2214) 0.80 MG/DL eGFR (2020 CKD-EPI) (test code 94 ML/MIN/1.73 = 85718) CALC BUN/CREAT (test code = 21 RATIO [...] code = 2219) 39 U/L COMPREHENSIVE METABOLIC [id number] 00:00:00 Test Item Value Reference Range Interpretation Comments GLUCOSE (test code = 2217) 349 MG/DL BUN (test code = 2208) 17 MG/DL CREATININE (test code = 2214) 0.80 MG/DL eGFR (2020 CKD-EPI) (test code 94 ML/MIN/1.73 = 99229) CALC BUN/CREAT (test code = 21 RATIO [...] (test code = 2219) 39 U/L LIPID [id number] 00:00:00 Test Item Value Reference Range Interpretation Comments CHOLESTEROL (test code = 2210) 206 MG/DL TRIGLYCERIDES (test code = 2232) 1120 MG/DL HDL CHOLESTEROL (test code = 24 MG/DL 2220) CALC LDL CHOL (test code = 2237) (NOTE) MG/DL RISK RATIO LDL/HDL (test code = (NOTE) RATIO 2238) LIPID [id number] 00:00:00 Test Item Value Reference Range Interpretation Comments CHOLESTEROL (test code = 2210) 206 MG/DL TRIGLYCERIDES (test code = 2232) 1120 MG/DL HDL CHOLESTEROL (test code = 24 MG/DL 2220) CALC LDL CHOL (test code = 2237) (NOTE) MG/DL RISK RATIO LDL/HDL (test code = (NOTE) RATIO 2238) COMPREHENSIVE METABOLIC [id number] 00:00:00 Test Item Value Reference Range Interpretation Comments GLUCOSE (test code = 2217) 349 MG/DL BUN (test code = 2208) 17 MG/DL CREATININE (test code = 2214) 0.80 MG/DL eGFR (2020 CKD-EPI) (test code 94 ML/MIN/1.73 = 27477) CALC BUN/CREAT (test code = 21 RATIO [...] code = 2219) 39 U/L COMPREHENSIVE METABOLIC [id number] 00:00:00 Test Item Value Reference Range Interpretation Comments GLUCOSE (test code = 2217) 349 MG/DL BUN (test code = 2208) 17 MG/DL CREATININE (test code = 2214) 0.80 MG/DL eGFR (2020 CKD-EPI) (test code 94 ML/MIN/1.73 = 97234) CALC BUN/CREAT (test code = 21 RATIO [...] (test code = 2219) 39 U/L LIPID [id number] 00:00:00 Test Item Value Reference Range Interpretation Comments CHOLESTEROL (test code = 2210) 206 MG/DL TRIGLYCERIDES (test code = 2232) 1120 MG/DL HDL CHOLESTEROL (test code = 24 MG/DL 2220) CALC LDL CHOL (test code = 2237) (NOTE) MG/DL RISK RATIO LDL/HDL (test code = (NOTE) RATIO 2238) LIPID [id number] 00:00:00 Test Item Value Reference Range Interpretation Comments CHOLESTEROL (test code = 2210) 206 MG/DL TRIGLYCERIDES (test code = 2232) 1120 MG/DL HDL CHOLESTEROL (test code = 24 MG/DL 2220) CALC LDL CHOL (test code = 2237) (NOTE) MG/DL RISK RATIO LDL/HDL (test code = (NOTE) RATIO 2238) COMPREHENSIVE METABOLIC [id number] 00:00:00 Test Item Value Reference Range Interpretation Comments GLUCOSE (test code = 2217) 349 MG/DL BUN (test code = 2208) 17 MG/DL CREATININE (test code = 2214) 0.80 MG/DL eGFR (2020 CKD-EPI) (test code 94 ML/MIN/1.73 = 20469) CALC BUN/CREAT (test code = 21 RATIO [...] code = 2219) 39 U/L COMPREHENSIVE METABOLIC [id number] 00:00:00 Test Item Value Reference Range Interpretation Comments GLUCOSE (test code = 2217) 349 MG/DL BUN (test code = 2208) 17 MG/DL CREATININE (test code = 2214) 0.80 MG/DL eGFR (2020 CKD-EPI) (test code 94 ML/MIN/1.73 = 04604) CALC BUN/CREAT (test code = 21 RATIO 2235) SODIUM (test code = 2231) 137 MEQ/L POTASSIUM (test code = 2228) 4.2 MEQ/L CHLORIDE (test code = 2215) 99 MEQ/L CARBON DIOXIDE (test code = 16 MEQ/L 220) CALCIUM (test code = 2209) [...] (test code = 2219) 39 U/L LIPID [id number] 00:00:00 Test Item Value Reference Range Interpretation Comments CHOLESTEROL (test code = 2210) 206 MG/DL TRIGLYCERIDES (test code = 2232) 1120 MG/DL HDL CHOLESTEROL (test code = 24 MG/DL 2220) CALC LDL CHOL (test code = 2237) (NOTE) MG/DL RISK RATIO LDL/HDL (test code = (NOTE) RATIO 2238) LIPID [id number] 00:00:00 Test Item Value Reference Range Interpretation Comments CHOLESTEROL (test code = 2210) 206 MG/DL TRIGLYCERIDES (test code = 2232) 1120 MG/DL HDL CHOLESTEROL (test code = 24 MG/DL 2220) CALC LDL CHOL (test code = 2237) (NOTE) MG/DL RISK RATIO LDL/HDL (test code = (NOTE) RATIO 2238) COMPREHENSIVE METABOLIC [id number] 00:00:00 Test Item Value Reference Range Interpretation Comments GLUCOSE (test code = 2217) 349 MG/DL BUN (test code = 2208) 17 MG/DL CREATININE (test code = 2214) 0.80 MG/DL eGFR (2020 CKD-EPI) (test code 94 ML/MIN/1.73 = 09743) CALC BUN/CREAT (test code = 21 RATIO [...] BILIRUBIN, TOTAL (test code = 0.2 MG/DL 220) ALKALINE PHOSPHATASE (test 69 U/L code = 2204) AST (test code = 2218) 21 U/L ALT (test code = 2219) 39 U/L COMPREHENSIVE METABOLIC [id number] 00:00:00 Test Item Value Reference Range Interpretation Comments GLUCOSE (test code = 2217) 349 MG/DL BUN (test code = 2208) 17 MG/DL CREATININE (test code = 2214) 0.80 MG/DL eGFR (2020 CKD-EPI) (test code 94 ML/MIN/1.73 = 43796) CALC BUN/CREAT (test code = 21 RATIO [...] (test code = 2219) 39 U/L LIPID [id number] 00:00:00 Test Item Value Reference Range Interpretation Comments CHOLESTEROL (test code = 2210) 206 MG/DL TRIGLYCERIDES (test code = 2232) 1120 MG/DL HDL CHOLESTEROL (test code = 24 MG/DL 0) CALC LDL CHOL (test code = 2237) (NOTE) MG/DL RISK RATIO LDL/HDL (test code = (NOTE) RATIO 2238) COMPREHENSIVE METABOLIC [id number] 00:00:00 Test Item Value Reference Range Interpretation Comments GLUCOSE (test code = 2217) 349 MG/DL BUN (test code = 2208) 17 MG/DL CREATININE (test code = 2214) 0.80 MG/DL eGFR (2020 CKD-EPI) (test code 94 ML/MIN/1.73 = 27070) CALC BUN/CREAT (test code = 21 RATIO [...] (test code = 2219) 39 U/L LIPID [id number] 00:00:00 Test Item Value Reference Range Interpretation Comments CHOLESTEROL (test code = 2210) 206 MG/DL TRIGLYCERIDES (test code = 2232) 1120 MG/DL HDL CHOLESTEROL (test code = 24 MG/DL 2220) CALC LDL CHOL (test code = 2237) (NOTE) MG/DL RISK RATIO LDL/HDL (test code = (NOTE) RATIO 2238) LIPID [id number] 00:00:00 Test Item Value Reference Range Interpretation Comments CHOLESTEROL (test code = 2210) 206 MG/DL TRIGLYCERIDES (test code = 2232) 1120 MG/DL HDL CHOLESTEROL (test code = 24 MG/DL 2220) CALC LDL CHOL (test code = 2237) (NOTE) MG/DL RISK RATIO LDL/HDL (test code = (NOTE) RATIO 2238) COMPREHENSIVE METABOLIC [id number] 00:00:00 Test Item Value Reference Range Interpretation Comments GLUCOSE (test code = 2217) 349 MG/DL BUN (test code = 2208) 17 MG/DL CREATININE (test code = 2214) 0.80 MG/DL eGFR (2020 CKD-EPI) (test code 94 ML/MIN/1.73 = 06833) CALC BUN/CREAT (test code = 21 RATIO 2235) SODIUM (test code = 2231) 137 MEQ/L POTASSIUM (test code = 2228) 4.2 MEQ/L CHLORIDE (test code = 2215) 99 MEQ/L CARBON DIOXIDE (test code = 16 MEQ/L 220) CALCIUM (test code = 2209) [...] code = 2219) 39 U/L COMPREHENSIVE METABOLIC [id number] 00:00:00 Test Item Value Reference Range Interpretation Comments GLUCOSE (test code = 2217) 349 MG/DL BUN (test code = 2208) 17 MG/DL CREATININE (test code = 2214) 0.80 MG/DL eGFR (2020 CKD-EPI) (test code 94 ML/MIN/1.73 = 57559) CALC BUN/CREAT (test code = 21 RATIO [...] (test code = 2219) 39 U/L LIPID [id number] 00:00:00 Test Item Value Reference Range Interpretation Comments CHOLESTEROL (test code = 2210) 206 MG/DL TRIGLYCERIDES (test code = 2232) 1120 MG/DL HDL CHOLESTEROL (test code = 24 MG/DL 2219) CALC LDL CHOL (test code = 2237) (NOTE) MG/DL RISK RATIO LDL/HDL (test code = (NOTE) RATIO 2238) LIPID [id number] 00:00:00 Test Item Value Reference Range Interpretation Comments CHOLESTEROL (test code = 2210) 206 MG/DL TRIGLYCERIDES (test code = 2232) 1120 MG/DL HDL CHOLESTEROL (test code = 24 MG/DL 2220) CALC LDL CHOL (test code = 2237) (NOTE) MG/DL RISK RATIO LDL/HDL (test code = (NOTE) RATIO 2238) COMPREHENSIVE METABOLIC [id number] 00:00:00 Test Item Value Reference Range Interpretation Comments GLUCOSE (test code = 2217) 349 MG/DL BUN (test code = 2208) 17 MG/DL CREATININE (test code = 2214) 0.80 MG/DL eGFR (2020 CKD-EPI) (test code 94 ML/MIN/1.73 = 50969) CALC BUN/CREAT (test code = 21 RATIO 2235) SODIUM (test code = 2231) 137 MEQ/L POTASSIUM (test code = 2228) 4.2 MEQ/L CHLORIDE (test code = 2215) 99 MEQ/L CARBON DIOXIDE (test code = 16 MEQ/L 6) CALCIUM (test code = 2209) [...] code = 2219) 39 U/L COMPREHENSIVE METABOLIC [id number] 00:00:00 Test Item Value Reference Range Interpretation Comments GLUCOSE (test code = 2217) 349 MG/DL BUN (test code = 2208) 17 MG/DL CREATININE (test code = 2214) 0.80 MG/DL eGFR (2020 CKD-EPI) (test code 94 ML/MIN/1.73 = 10977) CALC BUN/CREAT (test code = 21 RATIO [...] (test code = 2219) 39 U/L LIPID [id number] 00:00:00 Test Item Value Reference Range Interpretation Comments CHOLESTEROL (test code = 2210) 206 MG/DL TRIGLYCERIDES (test code = 2232) 1120 MG/DL HDL CHOLESTEROL (test code = 24 MG/DL 2220) CALC LDL CHOL (test code = 2237) (NOTE) MG/DL RISK RATIO LDL/HDL (test code = (NOTE) RATIO 2238) LIPID [id number] 00:00:00 Test Item Value Reference Range Interpretation Comments CHOLESTEROL (test code = 2210) 206 MG/DL TRIGLYCERIDES (test code = 2232) 1120 MG/DL HDL CHOLESTEROL (test code = 24 MG/DL 2220) CALC LDL CHOL (test code = 2237) (NOTE) MG/DL RISK RATIO LDL/HDL (test code = (NOTE) RATIO 2238) COMPREHENSIVE METABOLIC [id number] 00:00:00 Test Item Value Reference Range Interpretation Comments GLUCOSE (test code = 2217) 349 MG/DL BUN (test code = 2208) 17 MG/DL CREATININE (test code = 2214) 0.80 MG/DL eGFR (2020 CKD-EPI) (test code 94 ML/MIN/1.73 = 99340) CALC BUN/CREAT (test code = 21 RATIO [...] code = 2219) 39 U/L COMPREHENSIVE METABOLIC [id number] 00:00:00 Test Item Value Reference Range Interpretation Comments GLUCOSE (test code = 2217) 349 MG/DL BUN (test code = 2208) 17 MG/DL CREATININE (test code = 2214) 0.80 MG/DL eGFR (2020 CKD-EPI) (test code 94 ML/MIN/1.73 = 64040) CALC BUN/CREAT (test code = 21 RATIO [...] (test code = 2219) 39 U/L HEMOGLOBIN [id number] 04:43:57 Test Item Value Reference Range Interpretation Comments HEMOGLOBIN A1c (test 11.5 % 4.2-5.6 H [employer]ES code = 37070) ASSOCIATION [employer] FOR HGB A1C: PREDIABETES/INC REASED [...] ATE TESTING OR LABORATORY C ONSULTATION. HEMOGLOBIN [id number] 00:00:00 Test Item Value Reference Range Interpretation Comments HEMOGLOBIN A1c (test code = 13480) 11.5 % HEMOGLOBIN [id number] 00:00:00 Test Item Value Reference Range Interpretation Comments HEMOGLOBIN A1c (test code = 92960) 11.5 % HEMOGLOBIN [id number] 00:00:00 Test Item Value Reference Range Interpretation Comments HEMOGLOBIN A1c (test code = 99494) 11.5 % HEMOGLOBIN [id number] 00:00:00 Test Item Value Reference Range Interpretation Comments HEMOGLOBIN A1c (test code = 09665) 11.5 % HEMOGLOBIN [id number] 00:00:00 Test Item Value Reference Range Interpretation Comments HEMOGLOBIN A1c (test code = 58746) 11.5 % HEMOGLOBIN [id number] 00:00:00 Test Item Value Reference Range Interpretation Comments HEMOGLOBIN A1c (test code = 18351) 11.5 % HEMOGLOBIN [id number] 00:00:00 Test Item Value Reference Range Interpretation Comments HEMOGLOBIN A1c (test code = 87087) 11.5 % HEMOGLOBIN [id number] 00:00:00 Test Item Value Reference Range Interpretation Comments HEMOGLOBIN A1c (test code = 95931) 11.5 % HEMOGLOBIN [id number] 00:00:00 Test Item Value Reference Range Interpretation Comments HEMOGLOBIN A1c (test code = 44998) 11.5 % HEMOGLOBIN [id number] 00:00:00 Test Item Value Reference Range Interpretation Comments HEMOGLOBIN A1c (test code = 52995) 11.5 % HEMOGLOBIN [id number] 00:00:00 Test Item Value Reference Range Interpretation Comments HEMOGLOBIN A1c (test code = 43066) 11.5 % HEMOGLOBIN [id number] 00:00:00 Test Item Value Reference Range Interpretation Comments HEMOGLOBIN A1c (test code = 67142) 11.5 % HEMOGLOBIN [id number] 00:00:00 Test Item Value Reference Range Interpretation Comments HEMOGLOBIN A1c (test code = 56441) 11.5 % HEMOGLOBIN [id number] 00:00:00 Test Item Value Reference Range Interpretation Comments HEMOGLOBIN A1c (test code = 03057) 11.5 % HEMOGLOBIN [id number] 00:00:00 Test Item Value Reference Range Interpretation Comments HEMOGLOBIN A1c (test code = 01559) 11.5 % HEMOGLOBIN [id number] 00:00:00 Test Item Value Reference Range Interpretation Comments HEMOGLOBIN A1c (test code = 45835) 11.5 % HEMOGLOBIN [id number] 00:00:00 Test Item Value Reference Range Interpretation Comments HEMOGLOBIN A1c (test code = 42745) 11.5 % HEMOGLOBIN [id number] 00:00:00 Test Item Value Reference Range Interpretation Comments HEMOGLOBIN A1c (test code = 09399) 11.5 % HEMOGLOBIN [id number] 00:00:00 Test Item Value Reference Range Interpretation Comments HEMOGLOBIN A1c (test code = 84967) 11.5 % HEMOGLOBIN [id number] 00:00:00 Test Item Value Reference Range Interpretation Comments HEMOGLOBIN A1c (test code = 06473) 11.5 % HEMOGLOBIN [id number] 00:00:00 Test Item Value Reference Range Interpretation Comments HEMOGLOBIN A1c (test code = 26427) 11.5 % HEMOGLOBIN [id number] 00:00:00 Test Item Value Reference Range Interpretation Comments HEMOGLOBIN A1c (test code = 09124) 11.5 % HEMOGLOBIN [id number] 00:00:00 Test Item Value Reference Range Interpretation Comments HEMOGLOBIN A1c (test code = 00613) 11.5 % HEMOGLOBIN [id number] 00:00:00 Test Item Value Reference Range Interpretation Comments HEMOGLOBIN A1c (test code = 19469) 11.5 % HEMOGLOBIN [id number] 00:00:00 Test Item Value Reference Range Interpretation Comments HEMOGLOBIN A1c (test code = 86158) 11.5 % HEMOGLOBIN [id number] 00:00:00 Test Item Value Reference Range Interpretation Comments HEMOGLOBIN A1c (test code = 58539) 11.5 % HEMOGLOBIN [id number] 00:00:00 Test Item Value Reference Range Interpretation Comments HEMOGLOBIN A1c (test code = 18671) 11.5 % HEMOGLOBIN [id number] 00:00:00 Test Item Value Reference Range Interpretation Comments HEMOGLOBIN A1c (test code = 66982) 11.5 % HEMOGLOBIN [id number] 00:00:00 Test Item Value Reference Range Interpretation Comments HEMOGLOBIN A1c (test code = 93978) 11.5 % HEMOGLOBIN [id number] 00:00:00 Test Item Value Reference Range Interpretation Comments HEMOGLOBIN A1c (test code = 82460) 11.5 % HEMOGLOBIN [id number] 00:00:00 Test Item Value Reference Range Interpretation Comments HEMOGLOBIN A1c (test code = 07956) 11.5 % HEMOGLOBIN [id number] 00:00:00 Test Item Value Reference Range Interpretation Comments HEMOGLOBIN A1c (test code = 82920) 11.5 % CULTURE, [id number] 11:34:56SPECIMEN NUMBER: [id number] CULTURE, URINE SPECIMEN NUMBER: [id number] SPECIMEN COMMENT: URINE SOURCE:URINE REPORT STATUS: FINAL FINAL REPORT: 10/25/2021 10-50,000 CFU/ML UROGENITAL NORMA PRESENT NO COMM ON PATHOGENSCULTURE, [id number] 00:00:00 Test Item Value Reference Range Interpretation Comments CULTURE, URINE (test SPECIMEN NUMBER: code = 20588) [id number] CULTURE, [id number] 00:00:00 Test Item Value Reference Range Interpretation Comments CULTURE, URINE (test SPECIMEN NUMBER: code = 86361) [id number] CULTURE, [id number] 00:00:00 Test Item Value Reference Range Interpretation Comments CULTURE, URINE (test SPECIMEN NUMBER: code = 90112) [id number] CULTURE, [id number] 00:00:00 Test Item Value Reference Range Interpretation Comments CULTURE, URINE (test SPECIMEN NUMBER: code = 05455) [id number] CULTURE, [id number] 00:00:00 Test Item Value Reference Range Interpretation Comments CULTURE, URINE (test SPECIMEN NUMBER: code = 33365) [id number] CULTURE, [id number] 00:00:00 Test Item Value Reference Range Interpretation Comments CULTURE, URINE (test SPECIMEN NUMBER: code = 42883) [id number] CULTURE, [id number] 00:00:00 Test Item Value Reference Range Interpretation Comments CULTURE, URINE (test SPECIMEN NUMBER: code = 00032) [id number] CULTURE, [id number] 00:00:00 Test Item Value Reference Range Interpretation Comments CULTURE, URINE (test SPECIMEN NUMBER: code = 74563) [id number] CULTURE, [id number] 00:00:00 Test Item Value Reference Range Interpretation Comments CULTURE, URINE (test SPECIMEN NUMBER: code = 78817) [id number] CULTURE, [id number] 00:00:00 Test Item Value Reference Range Interpretation Comments CULTURE, URINE (test SPECIMEN NUMBER: code = 52464) [id number] CULTURE, [id number] 00:00:00 Test Item Value Reference Range Interpretation Comments CULTURE, URINE (test SPECIMEN NUMBER: code = 02082) [id number] CULTURE, [id number] 00:00:00 Test Item Value Reference Range Interpretation Comments CULTURE, URINE (test SPECIMEN NUMBER: code = 34599) [id number] CULTURE, [id number] 00:00:00 Test Item Value Reference Range Interpretation Comments CULTURE, URINE (test SPECIMEN NUMBER: code = 66939) [id number] CULTURE, [id number] 00:00:00 Test Item Value Reference Range Interpretation Comments CULTURE, URINE (test SPECIMEN NUMBER: code = 57441) [id number] CULTURE, [id number] 00:00:00 Test Item Value Reference Range Interpretation Comments CULTURE, URINE (test SPECIMEN NUMBER: code = 08905) [id number] CULTURE, [id number] 00:00:00 Test Item Value Reference Range Interpretation Comments CULTURE, URINE (test SPECIMEN NUMBER: code = 67987) [id number] CULTURE, [id number] 00:00:00 Test Item Value Reference Range Interpretation Comments CULTURE, URINE (test SPECIMEN NUMBER: code = 32850) [id number] CULTURE, [id number] 00:00:00 Test Item Value Reference Range Interpretation Comments CULTURE, URINE (test SPECIMEN NUMBER: code = 74766) [id number] CULTURE, [id number] 00:00:00 Test Item Value Reference Range Interpretation Comments CULTURE, URINE (test SPECIMEN NUMBER: code = 56195) [id number] CULTURE, [id number] 00:00:00 Test Item Value Reference Range Interpretation Comments CULTURE, URINE (test SPECIMEN NUMBER: code = 89591) [id number] CULTURE, [id number] 00:00:00 Test Item Value Reference Range Interpretation Comments CULTURE, URINE (test SPECIMEN NUMBER: code = 07117) [id number] VAGINAL PATHOGENS DNA [id number] 11:55:20 Test Item Value Reference Range Interpretation Comments ANDIE SPECIES (test NEGATIVE NEGATIVE code = 94368) G. VAGINALIS (test NEGATIVE NEGATIVE code = 78090) T. VAGINALIS (test NEGATIVE NEGATIVE UNLESS O THERWISE code = 33847) INDICATED, ALL TESTING PERFORMED [facility] PATHOLOGY [facility], [facility]. [address] [place] [address] 4 LABORATORY DIRE CTOR: NOAH TODD M.D. CLIA NUMBER [id number] [facility] [place] [id number] VAGINAL PATHOGENS DNA [id number] 00:00:00 Test Item Value Reference Range Interpretation Comments ANDIE SPECIES (test code = 87401) NEGATIVE G. VAGINALIS (test code = 33330) NEGATIVE T. VAGINALIS (test code = 02811) NEGATIVE VAGINAL PATHOGENS DNA [id number] 00:00:00 Test Item Value Reference Range Interpretation Comments ANDIE SPECIES (test code = 74579) NEGATIVE G. VAGINALIS (test code = 69719) NEGATIVE T. VAGINALIS (test code = 12958) NEGATIVE VAGINAL PATHOGENS DNA [id number] 00:00:00 Test Item Value Reference Range Interpretation Comments ANDIE SPECIES (test code = 86504) NEGATIVE G. VAGINALIS (test code = 71825) NEGATIVE T. VAGINALIS (test code = 60541) NEGATIVE VAGINAL PATHOGENS DNA [id number] 00:00:00 Test Item Value Reference Range Interpretation Comments ANDIE SPECIES (test code = 04102) NEGATIVE G. VAGINALIS (test code = 99709) NEGATIVE T. VAGINALIS (test code = 44880) NEGATIVE VAGINAL PATHOGENS DNA [id number] 00:00:00 Test Item Value Reference Range Interpretation Comments ANDIE SPECIES (test code = 79747) NEGATIVE G. VAGINALIS (test code = 07992) NEGATIVE T. VAGINALIS (test code = 84261) NEGATIVE VAGINAL PATHOGENS DNA [id number] 00:00:00 Test Item Value Reference Range Interpretation Comments ANDIE SPECIES (test code = 90285) NEGATIVE G. VAGINALIS (test code = 07011) NEGATIVE T. VAGINALIS (test code = 96601) NEGATIVE VAGINAL PATHOGENS DNA [id number] 00:00:00 Test Item Value Reference Range Interpretation Comments ANDIE SPECIES (test code = 57206) NEGATIVE G. VAGINALIS (test code = 08272) NEGATIVE T. VAGINALIS (test code = 50617) NEGATIVE VAGINAL PATHOGENS DNA [id number] 00:00:00 Test Item Value Reference Range Interpretation Comments ANDIE SPECIES (test code = 04342) NEGATIVE G. VAGINALIS (test code = 94288) NEGATIVE T. VAGINALIS (test code = 43327) NEGATIVE VAGINAL PATHOGENS DNA [id number] 00:00:00 Test Item Value Reference Range Interpretation Comments ANDIE SPECIES (test code = 48085) NEGATIVE G. VAGINALIS (test code = 68079) NEGATIVE T. VAGINALIS (test code = 08914) NEGATIVE VAGINAL PATHOGENS DNA [id number] 00:00:00 Test Item Value Reference Range Interpretation Comments ANDIE SPECIES (test code = 22547) NEGATIVE G. VAGINALIS (test code = 02023) NEGATIVE T. VAGINALIS (test code = 37164) NEGATIVE VAGINAL PATHOGENS DNA [id number] 00:00:00 Test Item Value Reference Range Interpretation Comments ANDIE SPECIES (test code = 87626) NEGATIVE G. VAGINALIS (test code = 32204) NEGATIVE T. VAGINALIS (test code = 90737) NEGATIVE VAGINAL PATHOGENS DNA [id number] 00:00:00 Test Item Value Reference Range Interpretation Comments ANDIE SPECIES (test code = 32040) NEGATIVE G. VAGINALIS (test code = 39339) NEGATIVE T. VAGINALIS (test code = 36273) NEGATIVE VAGINAL PATHOGENS DNA [id number] 00:00:00 Test Item Value Reference Range Interpretation Comments ANDIE SPECIES (test code = 62498) NEGATIVE G. VAGINALIS (test code = 00906) NEGATIVE T. VAGINALIS (test code = 22365) NEGATIVE VAGINAL PATHOGENS DNA [id number] 00:00:00 Test Item Value Reference Range Interpretation Comments ANDIE SPECIES (test code = 16774) NEGATIVE G. VAGINALIS (test code = 61947) NEGATIVE T. VAGINALIS (test code = 55308) NEGATIVE VAGINAL PATHOGENS DNA [id number] 00:00:00 Test Item Value Reference Range Interpretation Comments ANDIE SPECIES (test code = 99683) NEGATIVE G. VAGINALIS (test code = 44902) NEGATIVE T. VAGINALIS (test code = 33048) NEGATIVE VAGINAL PATHOGENS DNA [id number] 00:00:00 Test Item Value Reference Range Interpretation Comments ANDIE SPECIES (test code = 35914) NEGATIVE G. VAGINALIS (test code = 77149) NEGATIVE T. VAGINALIS (test code = 87444) NEGATIVE VAGINAL PATHOGENS DNA [id number] 00:00:00 Test Item Value Reference Range Interpretation Comments ANDIE SPECIES (test code = 02312) NEGATIVE G. VAGINALIS (test code = 75697) NEGATIVE T. VAGINALIS (test code = 80533) NEGATIVE VAGINAL PATHOGENS DNA [id number] 00:00:00 Test Item Value Reference Range Interpretation Comments ANDIE SPECIES (test code = 45246) NEGATIVE G. VAGINALIS (test code = 28112) NEGATIVE T. VAGINALIS (test code = 69822) NEGATIVE VAGINAL PATHOGENS DNA [id number] 00:00:00 Test Item Value Reference Range Interpretation Comments ANDIE SPECIES (test code = 89253) NEGATIVE G. VAGINALIS (test code = 67487) NEGATIVE T. VAGINALIS (test code = 72479) NEGATIVE VAGINAL PATHOGENS DNA [id number] 00:00:00 Test Item Value Reference Range Interpretation Comments ANDIE SPECIES (test code = 25235) NEGATIVE G. VAGINALIS (test code = 43862) NEGATIVE T. VAGINALIS (test code = 85691) NEGATIVE VAGINAL PATHOGENS DNA [id number] 00:00:00 Test Item Value Reference Range Interpretation Comments ANDIE SPECIES (test code = 89298) NEGATIVE G. VAGINALIS (test code = 43529) NEGATIVE T. VAGINALIS (test code = 49698) NEGATIVE POCT GLUCOSE (AUTOMATED)2021-10-17 01:51:54 Test Item Value Reference Range Interpretation Comments POCT GLU (test code = 3928180364) 365 mg/dL 70-110 H Lab Interpretation (test code = Abnormal 12472-5) [facility] GLUCOSE (AUTOMATED)2021-10-17 00:46:51 Test Item Value Reference Range Interpretation Comments POCT GLU (test code = 6357107223) 435 mg/dL 70-110 H Lab Interpretation (test code = Abnormal 59940-0) [facility] GLUCOSE(AGE >30DAYS)2021-10-17 00:41:00 Test Item Value Reference Range Interpretation Comments POCT Glu (age>30days) (test code = 435 mg/dL 70-110 A 3342) Lab Interpretation (test code = Abnormal 15540-1) [id number] 23:40:42 Test Item Value Reference Interpretation Comments Range TROPONIN I (test 0.001 ng/mL See_Comment [Automated code = 8366884884) message] The system which generated this result [...] biotin. Lab Interpretation Normal (test code = 61630-1) [id number] 23:37:40 Test Item Value Reference Range Interpretation Comments NT-proBNP (test code 20 pg/mL See_Comment [Autom ated = 5182371476) message] The system which generated this result transmitted reference range : <=125. The reference range was not used to interpret this result as normal/abnormal . CALVIN (test code = CALVIN) Biotin has been reported to cause a negative bias, interpret results relative to patient's use of biotin. Lab Interpretation Normal (test code = 37334-4) [facility]. METABOLIC PANEL (52684)2021-10-16 23:29:18 Test Item Value Reference Range Interpretation Comments NA (test code = 134 mmol/L 135-145 L 1960864084) K (test code = 4.4 mmol/L 3.5-5.0 7601766113) CL (test code = 97 mmol/L 98-108 L 5487276067) CO2 TOTAL (test code = 23 mmol/L 23-31 5585829456) AGAP (test code = 2-16 8820846104) BUN (test code = 21 mg/dL 7-23 5976224649) GLUCOSE (test code = 431 mg/dL 70-110 H 8239714054) CREATININE (test code = 0.88 mg/dL 0.50-1.04 1673425143) TOTAL BILI (test code = 0.5 mg/dL 0.1-1.0 6172901168) CALCIUM (test code = 9.2 mg/dL 8.6-10.6 6039227262) T PROTEIN (test code = 7.4 g/dL 6.3-8.2 1664856810) ALBUMIN (test code = 4.7 g/dL 3.5-5.0 1399510873) ALK PHOS (test code = 52 U/L 34-122 9447053464) ALTv (test code = 30 U/L 5-35 1742-6) AST(SGOT) (test code = 25 U/L 13-40 9271762518) eGFR (test code = mL/min/1.73m2 2316167200) CALVIN (test code = CALVIN) Association of [...] tests). Lab Interpretation Abnormal (test code = 74694-1) [facility] WITH [id number] 23:20:10 Test Item Value Reference Range Interpretation [...] RDW-SD (test code = 40.5 fL 39.0-49.9 29110-5) RDW-CV (test code = 13.5 % 12.0-15.5 788-0) PLT (test code = See_Comment [Automated 777-3) message] The sy stem which generated this result transmitted reference range : 166 - 358 10*3/ ?L. The reference r doretha was not used to interpret this result as normal/abnormal . MPV (test code = 9.6 fL 9.5-12.9 02021-5) NRBC/100 WBC (test See_Comment [Automat ed code = 0576180085) message] The system which generated this result transmitted reference range : 0.0 - 10.0 /100 WBCs. The refer ence range was not u sed to interpret th is result as normal/abnormal . NRBC x10^3 (test code <0.01 See_Comment [Auto mated = 6155599424) message] The s ystem which generated this result transmitted reference range : 10*3/?L. The reference range was not used to interpret this result as normal/abnormal . GRAN MAT (NEUT) % 43.2 % (test code = 770-8) IMM GRAN % (test code 0.70 % = 9614256097) LYMPH % (test code = 42.8 % 736-9) MONO % (test code = 9.2 % 5905-5) EOS % (test code = 3.0 % 713-8) BASO % (test code = 1.1 % 706-2) GRAN MAT x10^3(ANC) 3.15 10*3/uL 1.88-7.09 (test code = 0559704293) IMM GRAN x10^3 (test 0.05 10*3/uL 0.00-0.06 code = 3467232578) LYMPH x10^3 (test code 3.12 10*3/uL 1.32-3.29 = 731-0) MONO x10^3 (test code 0.67 10*3/uL 0.33-0.92 = 742-7) EOS x10^3 (test code = 0.22 10*3/uL 0.03-0.39 711-2) BASO x10^3 (test code 0.08 10*3/uL 0.01-0.07 H = 704-7) Lab Interpretation Abnormal (test code = 51276-5) [facility] [id number] 23:09:32 Test Item Value Reference Range Interpretation Comments LACTIC ACID (test code = 1.94 mmol/L 0.50-2.20 7843075837) Lab Interpretation (test code = Normal 78346-1) [facility] [id number] 22:34:00 Test Item Value Reference Range Interpretation Comments POCT PREG (test code = 1605) Negative On board controls acceptable with Present C Line (test code = 3574) POCT PREG LOT # (test code = 3575) [id number] POCT PREG TEST DATE (test 2023-04-09 code = 3576) Lab Interpretation (test code = Normal 90042-6) [facility], [id number] 08:52:36SPECIMEN NUMBER: [id number] CULTURE, URINE SPECIMEN NUMBER: [id number] SPECIMEN COMMENT: URINE SOURCE: URINE REPORT STATUS: FINAL FINAL REPORT: 10/12/2021 >100,000 CFU/ML UROGENITAL NORMA PRESENT NO COMMON PATHOGENS UNLESS OTHERWISE INDICATED, ALL TESTING PERFORMED [facility] [address] [place] [address] CONSTRUCTION TEACHER: NOAH DICKENS M.D. CLIA NUMBER [id number] [facility] [place] [id number], [id number] 00:00:00 Test Item Value Reference Range Interpretation Comments CULTURE, URINE (test SPECIMEN NUMBER: code = 98027) [id number] CULTURE, [id number] 00:00:00 Test Item Value Reference Range Interpretation Comments CULTURE, URINE (test SPECIMEN NUMBER: code = 61169) [id number] CULTURE, [id number] 00:00:00 Test Item Value Reference Range Interpretation Comments CULTURE, URINE (test SPECIMEN NUMBER: code = 73641) [id number] CULTURE, [id number] 00:00:00 Test Item Value Reference Range Interpretation Comments CULTURE, URINE (test SPECIMEN NUMBER: code = 89160) [id number] CULTURE, [id number] 00:00:00 Test Item Value Reference Range Interpretation Comments CULTURE, URINE (test SPECIMEN NUMBER: code = 34365) [id number] CULTURE, [id number] 00:00:00 Test Item Value Reference Range Interpretation Comments CULTURE, URINE (test SPECIMEN NUMBER: code = 13050) [id number] CULTURE, [id number] 00:00:00 Test Item Value Reference Range Interpretation Comments CULTURE, URINE (test SPECIMEN NUMBER: code = 12457) [id number] CULTURE, [id number] 00:00:00 Test Item Value Reference Range Interpretation Comments CULTURE, URINE (test SPECIMEN NUMBER: code = 30884) [id number] CULTURE, [id number] 00:00:00 Test Item Value Reference Range Interpretation Comments CULTURE, URINE (test SPECIMEN NUMBER: code = 82421) [id number] CULTURE, [id number] 00:00:00 Test Item Value Reference Range Interpretation Comments CULTURE, URINE (test SPECIMEN NUMBER: code = 84472) [id number] CULTURE, [id number] 00:00:00 Test Item Value Reference Range Interpretation Comments CULTURE, URINE (test SPECIMEN NUMBER: code = 04263) [id number] CULTURE, [id number] 00:00:00 Test Item Value Reference Range Interpretation Comments CULTURE, URINE (test SPECIMEN NUMBER: code = 49440) [id number] CULTURE, [id number] 00:00:00 Test Item Value Reference Range Interpretation Comments CULTURE, URINE (test SPECIMEN NUMBER: code = 33960) [id number] CULTURE, [id number] 00:00:00 Test Item Value Reference Range Interpretation Comments CULTURE, URINE (test SPECIMEN NUMBER: code = 56036) [id number] CULTURE, [id number] 00:00:00 Test Item Value Reference Range Interpretation Comments CULTURE, URINE (test SPECIMEN NUMBER: code = 22842) [id number] CULTURE, [id number] 00:00:00 Test Item Value Reference Range Interpretation Comments CULTURE, URINE (test SPECIMEN NUMBER: code = 81140) [id number] CULTURE, [id number] 00:00:00 Test Item Value Reference Range Interpretation Comments CULTURE, URINE (test SPECIMEN NUMBER: code = 01200) [id number] CULTURE, [id number] 00:00:00 Test Item Value Reference Range Interpretation Comments CULTURE, URINE (test SPECIMEN NUMBER: code = 94138) [id number] CULTURE, [id number] 00:00:00 Test Item Value Reference Range Interpretation Comments CULTURE, URINE (test SPECIMEN NUMBER: code = 19853) [id number] CULTURE, [id number] 00:00:00 Test Item Value Reference Range Interpretation Comments CULTURE, URINE (test SPECIMEN NUMBER: code = 46671) [id number] CULTURE, [id number] 00:00:00 Test Item Value Reference Range Interpretation Comments CULTURE, URINE (test SPECIMEN NUMBER: code = 49695) [id number] URINE CULTURE, NO [id number] 09:46:36SPECIMEN NUMBER: [id number] URINE CULTURE, NO SENS SPECIMEN NUMBER: [id number] SPECIMEN COMMENT: URINESOURCE: URINE REPORT STATUS: FINAL FINAL REPORT: 10/08/2021 50-100,000 CFU/ML UROGENITAL NORMA PRESENT NO COMMON PATHOGENSURINE CULTURE, NO [id number] 00:00:00 Test Item Value Reference Range Interpretation Comments URINE CULTURE, NO SPECIMEN NUMBER: SENS (test code = 947304533 01510) URINE CULTURE, NO [id number] 00:00:00 Test Item Value Reference Range Interpretation Comments URINE CULTURE, NO SPECIMEN NUMBER: SENS (test code = 453666264 32796) URINE CULTURE, NO [id number] 00:00:00 Test Item Value Reference Range Interpretation Comments URINE CULTURE, NO SPECIMEN NUMBER: SENS (test code = 221605396 68732) URINE CULTURE, NO [id number] 00:00:00 Test Item Value Reference Range Interpretation Comments URINE CULTURE, NO SPECIMEN NUMBER: SENS (test code = 721339444 17833) URINE CULTURE, NO [id number] 00:00:00 Test Item Value Reference Range Interpretation Comments URINE CULTURE, NO SPECIMEN NUMBER: SENS (test code = 570602987 81350) URINE CULTURE, NO [id number] 00:00:00 Test Item Value Reference Range Interpretation Comments URINE CULTURE, NO SPECIMEN NUMBER: SENS (test code = 896665306 16944) URINE CULTURE, NO [id number] 00:00:00 Test Item Value Reference Range Interpretation Comments URINE CULTURE, NO SPECIMEN NUMBER: SENS (test code = 746551450 80550) URINE CULTURE, NO [id number] 00:00:00 Test Item Value Reference Range Interpretation Comments URINE CULTURE, NO SPECIMEN NUMBER: SENS (test code = 179056329 38078) URINE CULTURE, NO [id number] 00:00:00 Test Item Value Reference Range Interpretation Comments URINE CULTURE, NO SPECIMEN NUMBER: SENS (test code = 218010802 00329) URINE CULTURE, NO [id number] 00:00:00 Test Item Value Reference Range Interpretation Comments URINE CULTURE, NO SPECIMEN NUMBER: SENS (test code = 273674177 88260) URINE CULTURE, NO [id number] 00:00:00 Test Item Value Reference Range Interpretation Comments URINE CULTURE, NO SPECIMEN NUMBER: SENS (test code = 508803686 70297) URINE CULTURE, NO [id number] 00:00:00 Test Item Value Reference Range Interpretation Comments URINE CULTURE, NO SPECIMEN NUMBER: SENS (test code = 400816927 00814) URINE CULTURE, NO [id number] 00:00:00 Test Item Value Reference Range Interpretation Comments URINE CULTURE, NO SPECIMEN NUMBER: SENS (test code = 223743375 56980) URINE CULTURE, NO [id number] 00:00:00 Test Item Value Reference Range Interpretation Comments URINE CULTURE, NO SPECIMEN NUMBER: SENS (test code = 255496481 97753) URINE CULTURE, NO [id number] 00:00:00 Test Item Value Reference Range Interpretation Comments URINE CULTURE, NO SPECIMEN NUMBER: SENS (test code = 712886753 85879) URINE CULTURE, NO [id number] 00:00:00 Test Item Value Reference Range Interpretation Comments URINE CULTURE, NO SPECIMEN NUMBER: SENS (test code = 390359330 97355) URINE CULTURE, NO [id number] 00:00:00 Test Item Value Reference Range Interpretation Comments URINE CULTURE, NO SPECIMEN NUMBER: SENS (test code = 610166581 62330) URINE CULTURE, NO [id number] 00:00:00 Test Item Value Reference Range Interpretation Comments URINE CULTURE, NO SPECIMEN NUMBER: SENS (test code = 657373594 44025) URINE CULTURE, NO [id number] 00:00:00 Test Item Value Reference Range Interpretation Comments URINE CULTURE, NO SPECIMEN NUMBER: SENS (test code = 500256148 99794) URINE CULTURE, NO [id number] 00:00:00 Test Item Value Reference Range Interpretation Comments URINE CULTURE, NO SPECIMEN NUMBER: SENS (test code = 618426989 84833) URINE CULTURE, NO [id number] 00:00:00 Test Item Value Reference Range Interpretation Comments URINE CULTURE, NO SPECIMEN NUMBER: SENS (test code = 407763921 59962) CBC W/AUTO DIFF WITH [id number] 07:54:02 Test Item Value Reference Range Interpretation [...] RBCS 0.00 K/UL 0.00-0.11 (test code = 30177) COMPREHENSIVE METABOLIC [id number] 05:34:02 Test Item Value Reference Range Interpretation Comments GLUCOSE (test code = 108 MG/DL 70-99 H 2216) BUN (test code = 17 MG/DL 12-28) CREATININE (test 0.84 MG/DL 0.60-1.30 code = 221) eGFR (2020 CKD-EPI) 88 >60 (test code = 47584) ML/MIN/1.73 CALC BUN/CREAT (test 20 RATIO - code = 2235) SODIUM (test code = 141 MEQ/L 252-349 2890) POTASSIUM (test code 4.0 MEQ/L 3.5-5.4 = 2228) CHLORIDE (test code 100 MEQ/L 95-107 = 2215) CARBON DIOXIDE (test 23 MEQ/L 19-31 code = 2206) CALCIUM (test code = 10.3 MG/DL 8.5-10.5 2208) PROTEIN, TOTAL (test 7.6 G/DL 6.1-8.3 code = 2229) ALBUMIN (test code = 4.7 G/DL 3.5-5.2 [...] TESTING PERFORM ED [facility]CL[facility], [facility]. [address] [place] [id number] [place] [address] DIRECTOR: NOAH DICKENS M.D. CLIA NUMBER [id number] CAP ACCREDITATION N O. [id number] CBC W/AUTO [id number] 00:00:00 Test Item Value Reference Range Interpretation [...] NUCLEATED RBCS (test code = 0.00 K/UL 42406) CBC W/AUTO [id number] 00:00:00 Test Item Value Reference Range Interpretation [...] NUCLEATED RBCS (test code = 0.00 K/UL 90784) CBC W/AUTO [id number] 00:00:00 Test Item Value Reference Range Interpretation [...] NUCLEATED RBCS (test code = 0.00 K/UL 27402) COMPREHENSIVE METABOLIC [id number] 00:00:00 Test Item Value Reference Range Interpretation Comments GLUCOSE (test code = 2217) 108 MG/DL BUN (test code = 2208) 17 MG/DL CREATININE (test code = 2214) 0.84 MG/DL eGFR (2020 CKD-EPI) (test code 88 ML/MIN/1.73 = 29702) CALC BUN/CREAT (test code = 20 RATIO 2235) SODIUM (test code = 2231) 141 MEQ/L POTASSIUM (test code = 2228) 4.0 MEQ/L CHLORIDE (test code = 2215) 100 MEQ/L CARBON DIOXIDE (test code = 23 MEQ/L 2206) CALCIUM (test code = 2209) 10.3 MG/DL [...] code = 2219) 28 U/L COMPREHENSIVE METABOLIC [id number] 00:00:00 Test Item Value Reference Range Interpretation Comments GLUCOSE (test code = 2217) 108 MG/DL BUN (test code = 2208) 17 MG/DL CREATININE (test code = 2214) 0.84 MG/DL eGFR (2020 CKD-EPI) (test code 88 ML/MIN/1.73 = 23856) CALC BUN/CREAT (test code = 20 RATIO [...] code = 2219) 28 U/L CBC W/AUTO [id number] 00:00:00 Test Item Value Reference Range Interpretation [...] NUCLEATED RBCS (test code = 0.00 K/UL 17968) CBC W/AUTO [id number] 00:00:00 Test Item Value Reference Range Interpretation [...] NUCLEATED RBCS (test code = 0.00 K/UL 91339) CBC W/AUTO [id number] 00:00:00 Test Item Value Reference Range Interpretation [...] NUCLEATED RBCS (test code = 0.00 K/UL 64129) COMPREHENSIVE METABOLIC [id number] 00:00:00 Test Item Value Reference Range Interpretation Comments GLUCOSE (test code = 2217) 108 MG/DL BUN (test code = 2208) 17 MG/DL CREATININE (test code = 2214) 0.84 MG/DL eGFR (2020 CKD-EPI) (test code 88 ML/MIN/1.73 = 91816) CALC BUN/CREAT (test code = 20 RATIO 2235) SODIUM (test code = 2231) 141 MEQ/L POTASSIUM (test code = 2228) 4.0 MEQ/L CHLORIDE (test code = 2215) 100 MEQ/L CARBON DIOXIDE (test code = 23 MEQ/L 2206) CALCIUM (test code = 2209) 10.3 MG/DL [...] code = 2219) 28 U/L COMPREHENSIVE METABOLIC [id number] 00:00:00 Test Item Value Reference Range Interpretation Comments GLUCOSE (test code = 2217) 108 MG/DL BUN (test code = 2208) 17 MG/DL CREATININE (test code = 2214) 0.84 MG/DL eGFR (2020 CKD-EPI) (test code 88 ML/MIN/1.73 = 73874) CALC BUN/CREAT (test code = 20 RATIO 2235) SODIUM (test code = 2231) 141 MEQ/L POTASSIUM (test code = 2228) 4.0 MEQ/L CHLORIDE (test code = 2215) 100 MEQ/L CARBON DIOXIDE (test code = 23 MEQ/L 2206) CALCIUM (test code = 2209) 10.3 MG/DL [...] code = 2219) 28 U/L CBC W/AUTO [id number] 00:00:00 Test Item Value Reference Range Interpretation [...] NUCLEATED RBCS (test code = 0.00 K/UL 11827) CBC W/AUTO [id number] 00:00:00 Test Item Value Reference Range Interpretation [...] NUCLEATED RBCS (test code = 0.00 K/UL 17447) CBC W/AUTO [id number] 00:00:00 Test Item Value Reference Range Interpretation [...] NUCLEATED RBCS (test code = 0.00 K/UL 09819) COMPREHENSIVE METABOLIC [id number] 00:00:00 Test Item Value Reference Range Interpretation Comments GLUCOSE (test code = 2217) 108 MG/DL BUN (test code = 2208) 17 MG/DL CREATININE (test code = 2214) 0.84 MG/DL eGFR (2020 CKD-EPI) (test code 88 ML/MIN/1.73 = 54036) CALC BUN/CREAT (test code = 20 RATIO [...] ALKALINE PHOSPHATASE (test 51 U/L code = 220) AST (test code = 2218) 22 U/L ALT (test code = 2219) 28 U/L COMPREHENSIVE METABOLIC [id number] 00:00:00 Test Item Value Reference Range Interpretation Comments GLUCOSE (test code = 2217) 108 MG/DL BUN (test code = 2208) 17 MG/DL CREATININE (test code = 2214) 0.84 MG/DL eGFR (2020 CKD-EPI) (test code 88 ML/MIN/1.73 = 73280) CALC BUN/CREAT (test code = 20 RATIO [...] code = 2219) 28 U/L CBC W/AUTO [id number] 00:00:00 Test Item Value Reference Range Interpretation [...] NUCLEATED RBCS (test code = 0.00 K/UL 10074) CBC W/AUTO [id number] 00:00:00 Test Item Value Reference Range Interpretation [...] NUCLEATED RBCS (test code = 0.00 K/UL 22780) CBC W/AUTO [id number] 00:00:00 Test Item Value Reference Range Interpretation [...] NUCLEATED RBCS (test code = 0.00 K/UL 28475) COMPREHENSIVE METABOLIC [id number] 00:00:00 Test Item Value Reference Range Interpretation Comments GLUCOSE (test code = 2217) 108 MG/DL BUN (test code = 2208) 17 MG/DL CREATININE (test code = 2214) 0.84 MG/DL eGFR (2020 CKD-EPI) (test code 88 ML/MIN/1.73 = 05661) CALC BUN/CREAT (test code = 20 RATIO [...] code = 2219) 28 U/L COMPREHENSIVE METABOLIC [id number] 00:00:00 Test Item Value Reference Range Interpretation Comments GLUCOSE (test code = 2217) 108 MG/DL BUN (test code = 2208) 17 MG/DL CREATININE (test code = 2214) 0.84 MG/DL eGFR (2020 CKD-EPI) (test code 88 ML/MIN/1.73 = 09145) CALC BUN/CREAT (test code = 20 RATIO [...] BILIRUBIN, TOTAL (test code = <0.2 MG/DL 2207) ALKALINE PHOSPHATASE (test 51 U/L code = 2204) AST (test code = 2218) 22 U/L ALT (test code = 2219) 28 U/L CBC W/AUTO [id number] 00:00:00 Test Item Value Reference Range Interpretation [...] NUCLEATED RBCS (test code = 0.00 K/UL 02245) CBC W/AUTO [id number] 00:00:00 Test Item Value Reference Range Interpretation [...] NUCLEATED RBCS (test code = 0.00 K/UL 10682) CBC W/AUTO [id number] 00:00:00 Test Item Value Reference Range Interpretation [...] NUCLEATED RBCS (test code = 0.00 K/UL 55277) COMPREHENSIVE METABOLIC [id number] 00:00:00 Test Item Value Reference Range Interpretation Comments GLUCOSE (test code = 2217) 108 MG/DL BUN (test code = 2208) 17 MG/DL CREATININE (test code = 2214) 0.84 MG/DL eGFR (2020 CKD-EPI) (test code 88 ML/MIN/1.73 = 28840) CALC BUN/CREAT (test code = 20 RATIO [...] code = 2219) 28 U/L COMPREHENSIVE METABOLIC [id number] 00:00:00 Test Item Value Reference Range Interpretation Comments GLUCOSE (test code = 2217) 108 MG/DL BUN (test code = 2208) 17 MG/DL CREATININE (test code = 2214) 0.84 MG/DL eGFR (2020 CKD-EPI) (test code 88 ML/MIN/1.73 = 58527) CALC BUN/CREAT (test code = 20 RATIO [...] code = 2219) 28 U/L CBC W/AUTO [id number] 00:00:00 Test Item Value Reference Range Interpretation [...] NUCLEATED RBCS (test code = 0.00 K/UL 36308) CBC W/AUTO [id number] 00:00:00 Test Item Value Reference Range Interpretation [...] NUCLEATED RBCS (test code = 0.00 K/UL 98814) CBC W/AUTO [id number] 00:00:00 Test Item Value Reference Range Interpretation [...] NUCLEATED RBCS (test code = 0.00 K/UL 45093) COMPREHENSIVE METABOLIC [id number] 00:00:00 Test Item Value Reference Range Interpretation Comments GLUCOSE (test code = 2217) 108 MG/DL BUN (test code = 2208) 17 MG/DL CREATININE (test code = 2214) 0.84 MG/DL eGFR (2020 CKD-EPI) (test code 88 ML/MIN/1.73 = 03324) CALC BUN/CREAT (test code = 20 RATIO [...] code = 2219) 28 U/L COMPREHENSIVE METABOLIC [id number] 00:00:00 Test Item Value Reference Range Interpretation Comments GLUCOSE (test code = 2217) 108 MG/DL BUN (test code = 2208) 17 MG/DL CREATININE (test code = 2214) 0.84 MG/DL eGFR (2020 CKD-EPI) (test code 88 ML/MIN/1.73 = 87746) CALC BUN/CREAT (test code = 20 RATIO [...] ALKALINE PHOSPHATASE (test 51 U/L code = 220) AST (test code = 2218) 22 U/L ALT (test code = 2219) 28 U/L CBC W/AUTO [id number] 00:00:00 Test Item Value Reference Range Interpretation [...] NUCLEATED RBCS (test code = 0.00 K/UL 49137) CBC W/AUTO [id number] 00:00:00 Test Item Value Reference Range Interpretation [...] NUCLEATED RBCS (test code = 0.00 K/UL 57100) CBC W/AUTO [id number] 00:00:00 Test Item Value Reference Range Interpretation [...] NUCLEATED RBCS (test code = 0.00 K/UL 49068) COMPREHENSIVE METABOLIC [id number] 00:00:00 Test Item Value Reference Range Interpretation Comments GLUCOSE (test code = 2217) 108 MG/DL BUN (test code = 2208) 17 MG/DL CREATININE (test code = 2214) 0.84 MG/DL eGFR (2020 CKD-EPI) (test code 88 ML/MIN/1.73 = 22595) CALC BUN/CREAT (test code = 20 RATIO [...] code = 2219) 28 U/L COMPREHENSIVE METABOLIC [id number] 00:00:00 Test Item Value Reference Range Interpretation Comments GLUCOSE (test code = 2217) 108 MG/DL BUN (test code = 2208) 17 MG/DL CREATININE (test code = 2214) 0.84 MG/DL eGFR (2020 CKD-EPI) (test code 88 ML/MIN/1.73 = 74721) CALC BUN/CREAT (test code = 20 RATIO [...] code = 2219) 28 U/L CBC W/AUTO [id number] 00:00:00 Test Item Value Reference Range Interpretation [...] NUCLEATED RBCS (test code = 0.00 K/UL 94676) CBC W/AUTO [id number] 00:00:00 Test Item Value Reference Range Interpretation [...] NUCLEATED RBCS (test code = 0.00 K/UL 11917) COMPREHENSIVE METABOLIC [id number] 00:00:00 Test Item Value Reference Range Interpretation Comments GLUCOSE (test code = 2217) 108 MG/DL BUN (test code = 2208) 17 MG/DL CREATININE (test code = 2214) 0.84 MG/DL eGFR (2020 CKD-EPI) (test code 88 ML/MIN/1.73 = 24422) CALC BUN/CREAT (test code = 20 RATIO [...] ALKALINE PHOSPHATASE (test 51 U/L code = 220) AST (test code = 2218) 22 U/L ALT (test code = 2219) 28 U/L CBC W/AUTO [id number] 00:00:00 Test Item Value Reference Range Interpretation [...] NUCLEATED RBCS (test code = 0.00 K/UL 07279) CBC W/AUTO [id number] 00:00:00 Test Item Value Reference Range Interpretation [...] NUCLEATED RBCS (test code = 0.00 K/UL 39170) CBC W/AUTO [id number] 00:00:00 Test Item Value Reference Range Interpretation [...] NUCLEATED RBCS (test code = 0.00 K/UL 83076) COMPREHENSIVE METABOLIC [id number] 00:00:00 Test Item Value Reference Range Interpretation Comments GLUCOSE (test code = 2217) 108 MG/DL BUN (test code = 2208) 17 MG/DL CREATININE (test code = 2214) 0.84 MG/DL eGFR (2020 CKD-EPI) (test code 88 ML/MIN/1.73 = 15579) CALC BUN/CREAT (test code = 20 RATIO [...] code = 2219) 28 U/L COMPREHENSIVE METABOLIC [id number] 00:00:00 Test Item Value Reference Range Interpretation Comments GLUCOSE (test code = 2217) 108 MG/DL BUN (test code = 2208) 17 MG/DL CREATININE (test code = 2214) 0.84 MG/DL eGFR (2020 CKD-EPI) (test code 88 ML/MIN/1.73 = 05833) CALC BUN/CREAT (test code = 20 RATIO [...] code = 2219) 28 U/L CBC W/AUTO [id number] 00:00:00 Test Item Value Reference Range Interpretation [...] NUCLEATED RBCS (test code = 0.00 K/UL 13085) CBC W/AUTO [id number] 00:00:00 Test Item Value Reference Range Interpretation [...] NUCLEATED RBCS (test code = 0.00 K/UL 83398) CBC W/AUTO [id number] 00:00:00 Test Item Value Reference Range Interpretation [...] NUCLEATED RBCS (test code = 0.00 K/UL 32904) COMPREHENSIVE METABOLIC [id number] 00:00:00 Test Item Value Reference Range Interpretation Comments GLUCOSE (test code = 2217) 108 MG/DL BUN (test code = 2208) 17 MG/DL CREATININE (test code = 2214) 0.84 MG/DL eGFR (2020 CKD-EPI) (test code 88 ML/MIN/1.73 = 88345) CALC BUN/CREAT (test code = 20 RATIO [...] code = 2219) 28 U/L COMPREHENSIVE METABOLIC [id number] 00:00:00 Test Item Value Reference Range Interpretation Comments GLUCOSE (test code = 2217) 108 MG/DL BUN (test code = 2208) 17 MG/DL CREATININE (test code = 2214) 0.84 MG/DL eGFR (2020 CKD-EPI) (test code 88 ML/MIN/1.73 = 91656) CALC BUN/CREAT (test code = 20 RATIO [...] code = 2219) 28 U/L CBC W/AUTO [id number] 00:00:00 Test Item Value Reference Range Interpretation [...] NUCLEATED RBCS (test code = 0.00 K/UL 70621) CBC W/AUTO [id number] 00:00:00 Test Item Value Reference Range Interpretation [...] NUCLEATED RBCS (test code = 0.00 K/UL 14172) CBC W/AUTO [id number] 00:00:00 Test Item Value Reference Range Interpretation [...] NUCLEATED RBCS (test code = 0.00 K/UL 32140) COMPREHENSIVE METABOLIC [id number] 00:00:00 Test Item Value Reference Range Interpretation Comments GLUCOSE (test code = 2217) 108 MG/DL BUN (test code = 2208) 17 MG/DL CREATININE (test code = 2214) 0.84 MG/DL eGFR (2020 CKD-EPI) (test code 88 ML/MIN/1.73 = 85655) CALC BUN/CREAT (test code = 20 RATIO [...] code = 2219) 28 U/L COMPREHENSIVE METABOLIC [id number] 00:00:00 Test Item Value Reference Range Interpretation Comments GLUCOSE (test code = 2217) 108 MG/DL BUN (test code = 2208) 17 MG/DL CREATININE (test code = 2214) 0.84 MG/DL eGFR (2020 CKD-EPI) (test code 88 ML/MIN/1.73 = 81748) CALC BUN/CREAT (test code = 20 RATIO [...] = 2219) 28 U/L COMP. METABOLIC PANEL ([id number])[id number] 15:36:43 Test Item Value Reference Range Interpretation Comments NA (test code = 133 mmol/L 135-145 L 0137002003) K (test code = 4.8 mmol/L 3.5-5.0 9623066308) CL (test code = 96 mmol/L 98-108 L 8403645835) CO2 TOTAL (test code = 21 mmol/L 23-31 L 0374812273) AGAP (test code = 2-16 3669593331) BUN (test code = 30 mg/dL 7-23 H 0648048247) GLUCOSE (test code = 405 mg/dL 70-110 H 7714172534) CREATININE (test code = 0.74 mg/dL 0.50-1.04 2538878847) TOTAL BILI (test code = 0.6 mg/dL 0.1-1.8 1687427204) CALCIUM (test code = 9.7 mg/dL 8.6-10.6 0715816541) T PROTEIN (test code = 7.9 g/dL 6.3-8.2 8016970246) ALBUMIN (test code = 4.9 g/dL 3.5-5.0 0476048004) ALK PHOS (test code = 66 U/L 34-122 8350592286) ALTv (test code = 37 U/L 5-35 H 1742-6) AST(SGOT) (test code = 31 U/L 13-40 6780038117) eGFR (test code = mL/min/1.73m2 3182722827) CALVNI (test code = CALVIN) Association of Glomerular [...] tests). Lab Interpretation Abnormal (test code = 17434-6) [facility] WITH [id number] 15:26:02 Test Item Value Reference Range Interpretation Comments WBC (test code = See_Comment [Automated 5590-2) message] The sy stem which generated this [...] (test code = 38.2 fL 39.0-49.9 L 83195-8) RDW-CV (test code = 12.9 % 12.0-15.5 788-0) PLT (test code = See_Comment [Automated 777-3) message] The sy stem which generated this result transmitted reference range : 166 - 358 10*3/ ?L. The reference r doretha was not used to interpret this result as normal/abnormal . MPV (test code = 9.8 fL 9.5-12.9 29600-2) NRBC/100 WBC (test See_Comment [Automat ed code = 5849070252) message] The system which generated this result transmitted reference range : 0.0 - 10.0 /100 WBCs. The refer ence range was not u sed to interpret th is result as normal/abnormal . NRBC x10^3 (test code <0.01 See_Comment [Auto mated = 8597228486) message] The s ystem which generated this result transmitted reference range : 10*3/?L. The reference range was not used to interpret this result as normal/abnormal . GRAN MAT (NEUT) % 50.6 % (test code = 770-8) IMM GRAN % (test code 0.80 % = 8078570095) LYMPH % (test code = 37.0 % 736-9) MONO % (test code = 8.5 % 5905-5) EOS % (test code = 2.2 % 713-8) BASO % (test code = 0.9 % 706-2) GRAN MAT x10^3(ANC) 3.86 10*3/uL 1.88-7.09 (test code = 5226929090) IMM GRAN x10^3 (test 0.06 10*3/uL 0.00-0.06 code = 7729065480) LYMPH x10^3 (test code 2.83 10*3/uL 1.32-3.29 = 731-0) MONO x10^3 (test code 0.65 10*3/uL 0.33-0.92 = 742-7) EOS x10^3 (test code = 0.17 10*3/uL 0.03-0.39 711-2) BASO x10^3 (test code 0.07 10*3/uL 0.01-0.07 = 704-7) Lab Interpretation Abnormal (test code = 07809-6) [id number]00 Test Item Value Reference Range Interpretation Comments POCT PREG (test code = 1605) negative On board controls acceptable with present C Line (test code = 3574) POCT PREG LOT # (test code = 3575) [id number] POCT PREG TEST DATE (test 09/07/2022 code = 3576) Lab Interpretation (test code = Normal 67502-2) [id number] 08:37:00 Test Item Value Reference Range Interpretation Comments GLUBED (test code = GLUBED) 260 mg/dL 60-125 H [id number] 06:42:00 Test Item Value Reference Range Interpretation Comments GLUBED (test code = GLUBED) 265 mg/dL 60-125 H COVID 19 Asymptomatic IH [id number] 17:24:00 Test Item Value Reference Range Interpretation Comments COVID 19 Asymptomatic IH AG (test NEGATIVE NEGATIVE code = COVNONPUIAG) COMPREHENSIVE METABOLIC [id number] 05:38:33 Test Item Value Reference Range Interpretation Comments GLUCOSE (test code = 411 MG/DL 70-99 H 2216) BUN (test code = 24 MG/DL 6-20 H 2207) CREATININE (test 1.13 MG/DL 0.60-1.30 code = 221) eGFR (2020 CKD-EPI) 62 ML/MIN/1.73 >60 (test code = 03740) CALC BUN/CREAT (test 21 RATIO 6-28 code = 2235) SODIUM (test code = 136 MEQ/L 312-068 0149) POTASSIUM (test code 5.0 MEQ/L 3.5-5.4 = 2227) CHLORIDE (test code 97 MEQ/L 95-107 = 2214) CARBON DIOXIDE (test 20 MEQ/L 19-31 code = 2206) CALCIUM (test code = 10.3 MG/DL 8.5-10.5 2208) PROTEIN, TOTAL (test 8.3 G/DL 6.1-8.3 code = 2229) ALBUMIN (test [...] = 49 U/L 5-40 H 2218) LIPID [id number] 05:38:33 Test Item Value Reference Range Interpretation [...] MOREINFORMATION , SEE CLIENT ANNOUNCE MENT AT [email or web address] CalcLDL-C RISK RATIO LDL/HDL 2.79 RATIO <3.22 UNABLE T O CALCULATE (test code = 2238) UNLESS OT HERWISE INDICATED, ALL TESTING PERFORMED [facility] [employer] [address] [place] [id number] 4 LABORATORY DIRE CTOR: NOAH TODD M.D. CLIA NUMBER [id number] [facility] [place]. [id number] HEMOGLOBIN [id number] 03:55:33 Test Item Value Reference Range Interpretation Comments HEMOGLOBIN A1c (test 11.9 % 4.2-5.6 H [employer]ES code = 98495) ASSOCIATION [employer] FOR HGB A1C: PREDIABETES/INC REASED [...] TESTING OR LABORATORY C ONSULTATION. COMPREHENSIVE METABOLIC [id number] 00:00:00 Test Item Value Reference Range Interpretation Comments GLUCOSE (test code = 2217) 411 MG/DL BUN (test code = 2208) 24 MG/DL CREATININE (test code = 2214) 1.13 MG/DL eGFR (2020 CKD-EPI) (test code 62 ML/MIN/1.73 = 94899) CALC BUN/CREAT (test code = 21 RATIO [...] ALKALINE PHOSPHATASE (test 61 U/L code = 2203) AST (test code = 2218) 38 U/L ALT (test code = 2219) 49 U/L COMPREHENSIVE METABOLIC [id number] 00:00:00 Test Item Value Reference Range Interpretation Comments GLUCOSE (test code = 2217) 411 MG/DL BUN (test code = 2208) 24 MG/DL CREATININE (test code = 2214) 1.13 MG/DL eGFR (2020 CKD-EPI) (test code 62 ML/MIN/1.73 = 81008) CALC BUN/CREAT (test code = 21 RATIO [...] (test code = 2219) 49 U/L HEMOGLOBIN [id number] 00:00:00 Test Item Value Reference Range Interpretation Comments HEMOGLOBIN A1c (test code = 39449) 11.9 % HEMOGLOBIN [id number] 00:00:00 Test Item Value Reference Range Interpretation Comments HEMOGLOBIN A1c (test code = 51605) 11.9 % HEMOGLOBIN [id number] 00:00:00 Test Item Value Reference Range Interpretation Comments HEMOGLOBIN A1c (test code = 77531) 11.9 % LIPID [id number] 00:00:00 Test Item Value Reference Range Interpretation Comments CHOLESTEROL (test code = 2210) 176 MG/DL TRIGLYCERIDES (test code = 2232) 614 MG/DL HDL CHOLESTEROL (test code = 28 MG/DL 2220) CALC LDL CHOL (test code = 2237) (NOTE) MG/DL RISK RATIO LDL/HDL (test code = 2.79 RATIO 2238) LIPID [id number] 00:00:00 Test Item Value Reference Range Interpretation Comments CHOLESTEROL (test code = 2210) 176 MG/DL TRIGLYCERIDES (test code = 2232) 614 MG/DL HDL CHOLESTEROL (test code = 28 MG/DL 2220) CALC LDL CHOL (test code = 2237) (NOTE) MG/DL RISK RATIO LDL/HDL (test code = 2.79 RATIO 2238) COMPREHENSIVE METABOLIC [id number] 00:00:00 Test Item Value Reference Range Interpretation Comments GLUCOSE (test code = 2217) 411 MG/DL BUN (test code = 2208) 24 MG/DL CREATININE (test code = 2214) 1.13 MG/DL eGFR (2020 CKD-EPI) (test code 62 ML/MIN/1.73 = 77000) CALC BUN/CREAT (test code = 21 RATIO 2235) SODIUM (test code = 2231) 136 MEQ/L POTASSIUM (test code = 2228) 5.0 MEQ/L CHLORIDE (test code = 2215) 97 MEQ/L CARBON DIOXIDE (test code = 20 MEQ/L 2205) CALCIUM (test code = 2209) 10.3 MG/DL PROTEIN, TOTAL (test code = 8.3 G/DL 2228) ALBUMIN (test code = 220) 4.8 G/DL CALC GLOBULIN (test code = 3.5 G/DL 2239) CALC A/G RATIO (test code = 1.4 RATIO 2234) BILIRUBIN, TOTAL (test code = 0.3 MG/DL 2206) ALKALINE PHOSPHATASE (test 61 U/L code = 2204) AST (test code = 2218) 38 U/L ALT (test code = 2219) 49 U/L COMPREHENSIVE METABOLIC [id number] 00:00:00 Test Item Value Reference Range Interpretation Comments GLUCOSE (test code = 2217) 411 MG/DL BUN (test code = 2208) 24 MG/DL CREATININE (test code = 2214) 1.13 MG/DL eGFR (2020 CKD-EPI) (test code 62 ML/MIN/1.73 = 27314) CALC BUN/CREAT (test code = 21 RATIO [...] CALC GLOBULIN (test code = 3.5 G/DL 0) CALC A/G RATIO (test code = 1.4 RATIO 4) BILIRUBIN, TOTAL (test code = 0.3 MG/DL 2206) ALKALINE PHOSPHATASE (test 61 U/L code = 2204) AST (test code = 2218) 38 U/L ALT (test code = 2219) 49 U/L HEMOGLOBIN [id number] 00:00:00 Test Item Value Reference Range Interpretation Comments HEMOGLOBIN A1c (test code = 24053) 11.9 % HEMOGLOBIN [id number] 00:00:00 Test Item Value Reference Range Interpretation Comments HEMOGLOBIN A1c (test code = 26909) 11.9 % HEMOGLOBIN [id number] 00:00:00 Test Item Value Reference Range Interpretation Comments HEMOGLOBIN A1c (test code = 84982) 11.9 % LIPID [id number] 00:00:00 Test Item Value Reference Range Interpretation Comments CHOLESTEROL (test code = 2210) 176 MG/DL TRIGLYCERIDES (test code = 2232) 614 MG/DL HDL CHOLESTEROL (test code = 28 MG/DL 2219) CALC LDL CHOL (test code = 2237) (NOTE) MG/DL RISK RATIO LDL/HDL (test code = 2.79 RATIO 2238) LIPID [id number] 00:00:00 Test Item Value Reference Range Interpretation Comments CHOLESTEROL (test code = 2210) 176 MG/DL TRIGLYCERIDES (test code = 2232) 614 MG/DL HDL CHOLESTEROL (test code = 28 MG/DL 2220) CALC LDL CHOL (test code = 2237) (NOTE) MG/DL RISK RATIO LDL/HDL (test code = 2.79 RATIO 2238) COMPREHENSIVE METABOLIC [id number] 00:00:00 Test Item Value Reference Range Interpretation Comments GLUCOSE (test code = 2217) 411 MG/DL BUN (test code = 2208) 24 MG/DL CREATININE (test code = 2214) 1.13 MG/DL eGFR (2020 CKD-EPI) (test code 62 ML/MIN/1.73 = 72349) CALC BUN/CREAT (test code = 21 RATIO [...] code = 2219) 49 U/L COMPREHENSIVE METABOLIC [id number] 00:00:00 Test Item Value Reference Range Interpretation Comments GLUCOSE (test code = 2217) 411 MG/DL BUN (test code = 2208) 24 MG/DL CREATININE (test code = 2214) 1.13 MG/DL eGFR (2020 CKD-EPI) (test code 62 ML/MIN/1.73 = 90779) CALC BUN/CREAT (test code = 21 RATIO [...] (test code = 2219) 49 U/L HEMOGLOBIN [id number] 00:00:00 Test Item Value Reference Range Interpretation Comments HEMOGLOBIN A1c (test code = 06258) 11.9 % HEMOGLOBIN [id number] 00:00:00 Test Item Value Reference Range Interpretation Comments HEMOGLOBIN A1c (test code = 64135) 11.9 % HEMOGLOBIN [id number] 00:00:00 Test Item Value Reference Range Interpretation Comments HEMOGLOBIN A1c (test code = 12194) 11.9 % LIPID [id number] 00:00:00 Test Item Value Reference Range Interpretation Comments CHOLESTEROL (test code = 2210) 176 MG/DL TRIGLYCERIDES (test code = 2232) 614 MG/DL HDL CHOLESTEROL (test code = 28 MG/DL 2220) CALC LDL CHOL (test code = 2237) (NOTE) MG/DL RISK RATIO LDL/HDL (test code = 2.79 RATIO 2238) LIPID [id number] 00:00:00 Test Item Value Reference Range Interpretation Comments CHOLESTEROL (test code = 2210) 176 MG/DL TRIGLYCERIDES (test code = 2232) 614 MG/DL HDL CHOLESTEROL (test code = 28 MG/DL 2220) CALC LDL CHOL (test code = 2237) (NOTE) MG/DL RISK RATIO LDL/HDL (test code = 2.79 RATIO 2238) COMPREHENSIVE METABOLIC [id number] 00:00:00 Test Item Value Reference Range Interpretation Comments GLUCOSE (test code = 2217) 411 MG/DL BUN (test code = 2208) 24 MG/DL CREATININE (test code = 2214) 1.13 MG/DL eGFR (2020 CKD-EPI) (test code 62 ML/MIN/1.73 = 78242) CALC BUN/CREAT (test code = 21 RATIO 2235) SODIUM (test code = 2231) 136 MEQ/L POTASSIUM (test code = 2228) 5.0 MEQ/L CHLORIDE (test code = 2215) 97 MEQ/L CARBON DIOXIDE (test code = 20 MEQ/L 2206) CALCIUM (test code = 2209) 10.3 MG/DL PROTEIN, TOTAL (test code = 8.3 G/DL 2228) ALBUMIN (test code = 2201) 4.8 G/DL CALC GLOBULIN (test code = 3.5 G/DL 2240) CALC A/G RATIO (test code = 1.4 RATIO 2234) BILIRUBIN, TOTAL (test code = 0.3 MG/DL 2206) ALKALINE PHOSPHATASE (test 61 U/L code = 220) AST (test code = 2218) 38 U/L ALT (test code = 2219) 49 U/L COMPREHENSIVE METABOLIC [id number] 00:00:00 Test Item Value Reference Range Interpretation Comments GLUCOSE (test code = 2217) 411 MG/DL BUN (test code = 2208) 24 MG/DL CREATININE (test code = 2214) 1.13 MG/DL eGFR (2020 CKD-EPI) (test code 62 ML/MIN/1.73 = 21778) CALC BUN/CREAT (test code = 21 RATIO [...] (test code = 2219) 49 U/L HEMOGLOBIN [id number] 00:00:00 Test Item Value Reference Range Interpretation Comments HEMOGLOBIN A1c (test code = 50288) 11.9 % HEMOGLOBIN [id number] 00:00:00 Test Item Value Reference Range Interpretation Comments HEMOGLOBIN A1c (test code = 92638) 11.9 % HEMOGLOBIN [id number] 00:00:00 Test Item Value Reference Range Interpretation Comments HEMOGLOBIN A1c (test code = 80574) 11.9 % LIPID [id number] 00:00:00 Test Item Value Reference Range Interpretation Comments CHOLESTEROL (test code = 2210) 176 MG/DL TRIGLYCERIDES (test code = 2232) 614 MG/DL HDL CHOLESTEROL (test code = 28 MG/DL 2220) CALC LDL CHOL (test code = 2237) (NOTE) MG/DL RISK RATIO LDL/HDL (test code = 2.79 RATIO 2238) LIPID [id number] 00:00:00 Test Item Value Reference Range Interpretation Comments CHOLESTEROL (test code = 2210) 176 MG/DL TRIGLYCERIDES (test code = 2232) 614 MG/DL HDL CHOLESTEROL (test code = 28 MG/DL 2220) CALC LDL CHOL (test code = 2237) (NOTE) MG/DL RISK RATIO LDL/HDL (test code = 2.79 RATIO 2238) COMPREHENSIVE METABOLIC [id number] 00:00:00 Test Item Value Reference Range Interpretation Comments GLUCOSE (test code = 2217) 411 MG/DL BUN (test code = 2208) 24 MG/DL CREATININE (test code = 2214) 1.13 MG/DL eGFR (2020 CKD-EPI) (test code 62 ML/MIN/1.73 = 00683) CALC BUN/CREAT (test code = 21 RATIO [...] code = 2219) 49 U/L COMPREHENSIVE METABOLIC [id number] 00:00:00 Test Item Value Reference Range Interpretation Comments GLUCOSE (test code = 2217) 411 MG/DL BUN (test code = 2208) 24 MG/DL CREATININE (test code = 2214) 1.13 MG/DL eGFR (2020 CKD-EPI) (test code 62 ML/MIN/1.73 = 58235) CALC BUN/CREAT (test code = 21 RATIO 2235) SODIUM (test code = 223) 136 MEQ/L POTASSIUM (test code = 2228) [...] (test code = 2219) 49 U/L HEMOGLOBIN [id number] 00:00:00 Test Item Value Reference Range Interpretation Comments HEMOGLOBIN A1c (test code = 42135) 11.9 % HEMOGLOBIN [id number] 00:00:00 Test Item Value Reference Range Interpretation Comments HEMOGLOBIN A1c (test code = 56117) 11.9 % HEMOGLOBIN [id number] 00:00:00 Test Item Value Reference Range Interpretation Comments HEMOGLOBIN A1c (test code = 35237) 11.9 % LIPID [id number] 00:00:00 Test Item Value Reference Range Interpretation Comments CHOLESTEROL (test code = 2210) 176 MG/DL TRIGLYCERIDES (test code = 2232) 614 MG/DL HDL CHOLESTEROL (test code = 28 MG/DL 2219) CALC LDL CHOL (test code = 2237) (NOTE) MG/DL RISK RATIO LDL/HDL (test code = 2.79 RATIO 2238) LIPID [id number] 00:00:00 Test Item Value Reference Range Interpretation Comments CHOLESTEROL (test code = 2210) 176 MG/DL TRIGLYCERIDES (test code = 2232) 614 MG/DL HDL CHOLESTEROL (test code = 28 MG/DL 2220) CALC LDL CHOL (test code = 2237) (NOTE) MG/DL RISK RATIO LDL/HDL (test code = 2.79 RATIO 2238) COMPREHENSIVE METABOLIC [id number] 00:00:00 Test Item Value Reference Range Interpretation Comments GLUCOSE (test code = 2217) 411 MG/DL BUN (test code = 2208) 24 MG/DL CREATININE (test code = 2214) 1.13 MG/DL eGFR (2020 CKD-EPI) (test code 62 ML/MIN/1.73 = 09357) CALC BUN/CREAT (test code = 21 RATIO [...] CALC GLOBULIN (test code = 3.5 G/DL 0) CALC A/G RATIO (test code = 1.4 RATIO 2234) BILIRUBIN, TOTAL (test code = 0.3 MG/DL 2206) ALKALINE PHOSPHATASE (test 61 U/L code = 2204) AST (test code = 2218) 38 U/L ALT (test code = 2219) 49 U/L COMPREHENSIVE METABOLIC [id number] 00:00:00 Test Item Value Reference Range Interpretation Comments GLUCOSE (test code = 2217) 411 MG/DL BUN (test code = 2208) 24 MG/DL CREATININE (test code = 2214) 1.13 MG/DL eGFR (2020 CKD-EPI) (test code 62 ML/MIN/1.73 = 08071) CALC BUN/CREAT (test code = 21 RATIO [...] (test code = 2219) 49 U/L HEMOGLOBIN [id number] 00:00:00 Test Item Value Reference Range Interpretation Comments HEMOGLOBIN A1c (test code = 01818) 11.9 % HEMOGLOBIN [id number] 00:00:00 Test Item Value Reference Range Interpretation Comments HEMOGLOBIN A1c (test code = 08216) 11.9 % HEMOGLOBIN [id number] 00:00:00 Test Item Value Reference Range Interpretation Comments HEMOGLOBIN A1c (test code = 63222) 11.9 % LIPID [id number] 00:00:00 Test Item Value Reference Range Interpretation Comments CHOLESTEROL (test code = 2210) 176 MG/DL TRIGLYCERIDES (test code = 2232) 614 MG/DL HDL CHOLESTEROL (test code = 28 MG/DL 0) CALC LDL CHOL (test code = 2237) (NOTE) MG/DL RISK RATIO LDL/HDL (test code = 2.79 RATIO 2238) LIPID [id number] 00:00:00 Test Item Value Reference Range Interpretation Comments CHOLESTEROL (test code = 2210) 176 MG/DL TRIGLYCERIDES (test code = 2232) 614 MG/DL HDL CHOLESTEROL (test code = 28 MG/DL 2220) CALC LDL CHOL (test code = 2237) (NOTE) MG/DL RISK RATIO LDL/HDL (test code = 2.79 RATIO 2238) COMPREHENSIVE METABOLIC [id number] 00:00:00 Test Item Value Reference Range Interpretation Comments GLUCOSE (test code = 2217) 411 MG/DL BUN (test code = 2208) 24 MG/DL CREATININE (test code = 2214) 1.13 MG/DL eGFR (2020 CKD-EPI) (test code 62 ML/MIN/1.73 = 57853) CALC BUN/CREAT (test code = 21 RATIO 2235) SODIUM (test code = 2231) 136 MEQ/L POTASSIUM (test code = 2228) 5.0 MEQ/L CHLORIDE (test code = 2215) 97 MEQ/L CARBON DIOXIDE (test code = 20 MEQ/L 2206) CALCIUM (test code = 2209) 10.3 MG/DL [...] code = 2219) 49 U/L COMPREHENSIVE METABOLIC [id number] 00:00:00 Test Item Value Reference Range Interpretation Comments GLUCOSE (test code = 2217) 411 MG/DL BUN (test code = 2208) 24 MG/DL CREATININE (test code = 2214) 1.13 MG/DL eGFR (2020 CKD-EPI) (test code 62 ML/MIN/1.73 = 96708) CALC BUN/CREAT (test code = 21 RATIO [...] (test code = 2219) 49 U/L HEMOGLOBIN [id number] 00:00:00 Test Item Value Reference Range Interpretation Comments HEMOGLOBIN A1c (test code = 12826) 11.9 % HEMOGLOBIN [id number] 00:00:00 Test Item Value Reference Range Interpretation Comments HEMOGLOBIN A1c (test code = 29776) 11.9 % HEMOGLOBIN [id number] 00:00:00 Test Item Value Reference Range Interpretation Comments HEMOGLOBIN A1c (test code = 74768) 11.9 % LIPID [id number] 00:00:00 Test Item Value Reference Range Interpretation Comments CHOLESTEROL (test code = 2210) 176 MG/DL TRIGLYCERIDES (test code = 2232) 614 MG/DL HDL CHOLESTEROL (test code = 28 MG/DL 2220) CALC LDL CHOL (test code = 2237) (NOTE) MG/DL RISK RATIO LDL/HDL (test code = 2.79 RATIO 2238) LIPID [id number] 00:00:00 Test Item Value Reference Range Interpretation Comments CHOLESTEROL (test code = 2210) 176 MG/DL TRIGLYCERIDES (test code = 2232) 614 MG/DL HDL CHOLESTEROL (test code = 28 MG/DL 2220) CALC LDL CHOL (test code = 2237) (NOTE) MG/DL RISK RATIO LDL/HDL (test code = 2.79 RATIO 2238) COMPREHENSIVE METABOLIC [id number] 00:00:00 Test Item Value Reference Range Interpretation Comments GLUCOSE (test code = 2217) 411 MG/DL BUN (test code = 2208) 24 MG/DL CREATININE (test code = 2214) 1.13 MG/DL eGFR (2020 CKD-EPI) (test code 62 ML/MIN/1.73 = 15521) CALC BUN/CREAT (test code = 21 RATIO 2235) SODIUM (test code = 2231) 136 MEQ/L POTASSIUM (test code = 2228) 5.0 MEQ/L CHLORIDE (test code = 2215) 97 MEQ/L CARBON DIOXIDE (test code = 20 MEQ/L 2205) CALCIUM (test code = 2209) 10.3 MG/DL PROTEIN, TOTAL (test code = 8.3 G/DL 2228) ALBUMIN (test code = 220) 4.8 G/DL CALC GLOBULIN (test code = 3.5 G/DL 2239) CALC A/G RATIO (test code = 1.4 RATIO 223) BILIRUBIN, TOTAL (test code = 0.3 MG/DL 2206) ALKALINE PHOSPHATASE (test 61 U/L code = 2204) AST (test code = 2218) 38 U/L ALT (test code = 2219) 49 U/L HEMOGLOBIN [id number] 00:00:00 Test Item Value Reference Range Interpretation Comments HEMOGLOBIN A1c (test code = 86608) 11.9 % HEMOGLOBIN [id number] 00:00:00 Test Item Value Reference Range Interpretation Comments HEMOGLOBIN A1c (test code = 87876) 11.9 % LIPID [id number] 00:00:00 Test Item Value Reference Range Interpretation Comments CHOLESTEROL (test code = 2210) 176 MG/DL TRIGLYCERIDES (test code = 2232) 614 MG/DL HDL CHOLESTEROL (test code = 28 MG/DL 2219) CALC LDL CHOL (test code = 2237) (NOTE) MG/DL RISK RATIO LDL/HDL (test code = 2.79 RATIO 8) COMPREHENSIVE METABOLIC [id number] 00:00:00 Test Item Value Reference Range Interpretation Comments GLUCOSE (test code = 221) 411 MG/DL BUN (test code = 2208) 24 MG/DL CREATININE (test code = 2214) 1.13 MG/DL eGFR (2020 CKD-EPI) (test code 62 ML/MIN/1.73 = 05404) CALC BUN/CREAT (test code = 21 RATIO [...] A/G RATIO (test code = 1.4 RATIO 4) BILIRUBIN, TOTAL (test code = 0.3 MG/DL 2206) ALKALINE PHOSPHATASE (test 61 U/L code = 2204) AST (test code = 2218) 38 U/L ALT (test code = 2219) 49 U/L COMPREHENSIVE METABOLIC [id number] 00:00:00 Test Item Value Reference Range Interpretation Comments GLUCOSE (test code = 2217) 411 MG/DL BUN (test code = 2208) 24 MG/DL CREATININE (test code = 2214) 1.13 MG/DL eGFR (2020 CKD-EPI) (test code 62 ML/MIN/1.73 = 55736) CALC BUN/CREAT (test code = 21 RATIO 2234) SODIUM (test code = 2231) 136 MEQ/L POTASSIUM (test code = 2228) 5.0 MEQ/L CHLORIDE (test code = 2215) 97 MEQ/L CARBON DIOXIDE (test code = 20 MEQ/L 2205) CALCIUM (test code = 2209) 10.3 MG/DL PROTEIN, TOTAL (test code = 8.3 G/DL 2228) ALBUMIN (test code = 220) 4.8 G/DL CALC GLOBULIN (test code = 3.5 G/DL 2239) CALC A/G RATIO (test code = 1.4 RATIO 2233) BILIRUBIN, TOTAL (test code = 0.3 MG/DL 2206) ALKALINE PHOSPHATASE (test 61 U/L code = 2204) AST (test code = 2218) 38 U/L ALT (test code = 2219) 49 U/L HEMOGLOBIN [id number] 00:00:00 Test Item Value Reference Range Interpretation Comments HEMOGLOBIN A1c (test code = 37790) 11.9 % HEMOGLOBIN [id number] 00:00:00 Test Item Value Reference Range Interpretation Comments HEMOGLOBIN A1c (test code = 82094) 11.9 % HEMOGLOBIN [id number] 00:00:00 Test Item Value Reference Range Interpretation Comments HEMOGLOBIN A1c (test code = 86039) 11.9 % LIPID [id number] 00:00:00 Test Item Value Reference Range Interpretation Comments CHOLESTEROL (test code = 2210) 176 MG/DL TRIGLYCERIDES (test code = 2232) 614 MG/DL HDL CHOLESTEROL (test code = 28 MG/DL 2219) CALC LDL CHOL (test code = 2237) (NOTE) MG/DL RISK RATIO LDL/HDL (test code = 2.79 RATIO 8) LIPID [id number] 00:00:00 Test Item Value Reference Range Interpretation Comments CHOLESTEROL (test code = 2210) 176 MG/DL TRIGLYCERIDES (test code = 2232) 614 MG/DL HDL CHOLESTEROL (test code = 28 MG/DL 2219) CALC LDL CHOL (test code = 2237) (NOTE) MG/DL RISK RATIO LDL/HDL (test code = 2.79 RATIO 2238) COMPREHENSIVE METABOLIC [id number] 00:00:00 Test Item Value Reference Range Interpretation Comments GLUCOSE (test code = 2217) 411 MG/DL BUN (test code = 2208) 24 MG/DL CREATININE (test code = 2214) 1.13 MG/DL eGFR (2020 CKD-EPI) (test code 62 ML/MIN/1.73 = 77887) CALC BUN/CREAT (test code = 21 RATIO [...] code = 2219) 49 U/L COMPREHENSIVE METABOLIC [id number] 00:00:00 Test Item Value Reference Range Interpretation Comments GLUCOSE (test code = 2217) 411 MG/DL BUN (test code = 2208) 24 MG/DL CREATININE (test code = 2214) 1.13 MG/DL eGFR (2020 CKD-EPI) (test code 62 ML/MIN/1.73 = 73428) CALC BUN/CREAT (test code = 21 RATIO [...] (test code = 2219) 49 U/L HEMOGLOBIN [id number] 00:00:00 Test Item Value Reference Range Interpretation Comments HEMOGLOBIN A1c (test code = 03859) 11.9 % HEMOGLOBIN [id number] 00:00:00 Test Item Value Reference Range Interpretation Comments HEMOGLOBIN A1c (test code = 20904) 11.9 % HEMOGLOBIN [id number] 00:00:00 Test Item Value Reference Range Interpretation Comments HEMOGLOBIN A1c (test code = 16977) 11.9 % LIPID [id number] 00:00:00 Test Item Value Reference Range Interpretation Comments CHOLESTEROL (test code = 2210) 176 MG/DL TRIGLYCERIDES (test code = 2232) 614 MG/DL HDL CHOLESTEROL (test code = 28 MG/DL 2220) CALC LDL CHOL (test code = 2237) (NOTE) MG/DL RISK RATIO LDL/HDL (test code = 2.79 RATIO 2238) LIPID [id number] 00:00:00 Test Item Value Reference Range Interpretation Comments CHOLESTEROL (test code = 2210) 176 MG/DL TRIGLYCERIDES (test code = 2232) 614 MG/DL HDL CHOLESTEROL (test code = 28 MG/DL 2220) CALC LDL CHOL (test code = 2237) (NOTE) MG/DL RISK RATIO LDL/HDL (test code = 2.79 RATIO 2238) COMPREHENSIVE METABOLIC [id number] 00:00:00 Test Item Value Reference Range Interpretation Comments GLUCOSE (test code = 2217) 411 MG/DL BUN (test code = 2208) 24 MG/DL CREATININE (test code = 2214) 1.13 MG/DL eGFR (2020 CKD-EPI) (test code 62 ML/MIN/1.73 = 01264) CALC BUN/CREAT (test code = 21 RATIO 2235) SODIUM (test code = 2231) 136 MEQ/L POTASSIUM (test code = 2228) 5.0 MEQ/L CHLORIDE (test code = 2215) 97 MEQ/L CARBON DIOXIDE (test code = 20 MEQ/L 2206) CALCIUM (test code = 2209) 10.3 MG/DL [...] code = 2219) 49 U/L COMPREHENSIVE METABOLIC [id number] 00:00:00 Test Item Value Reference Range Interpretation Comments GLUCOSE (test code = 2217) 411 MG/DL BUN (test code = 2208) 24 MG/DL CREATININE (test code = 2214) 1.13 MG/DL eGFR (2020 CKD-EPI) (test code 62 ML/MIN/1.73 = 07087) CALC BUN/CREAT (test code = 21 RATIO [...] (test code = 2219) 49 U/L HEMOGLOBIN [id number] 00:00:00 Test Item Value Reference Range Interpretation Comments HEMOGLOBIN A1c (test code = 00053) 11.9 % HEMOGLOBIN [id number] 00:00:00 Test Item Value Reference Range Interpretation Comments HEMOGLOBIN A1c (test code = 54446) 11.9 % HEMOGLOBIN [id number] 00:00:00 Test Item Value Reference Range Interpretation Comments HEMOGLOBIN A1c (test code = 05330) 11.9 % LIPID [id number] 00:00:00 Test Item Value Reference Range Interpretation Comments CHOLESTEROL (test code = 2210) 176 MG/DL TRIGLYCERIDES (test code = 2232) 614 MG/DL HDL CHOLESTEROL (test code = 28 MG/DL 2220) CALC LDL CHOL (test code = 2237) (NOTE) MG/DL RISK RATIO LDL/HDL (test code = 2.79 RATIO 2238) LIPID [id number] 00:00:00 Test Item Value Reference Range Interpretation Comments CHOLESTEROL (test code = 2210) 176 MG/DL TRIGLYCERIDES (test code = 2232) 614 MG/DL HDL CHOLESTEROL (test code = 28 MG/DL 2220) CALC LDL CHOL (test code = 2237) (NOTE) MG/DL RISK RATIO LDL/HDL (test code = 2.79 RATIO 2238) CREATINE [id number] 13:35:13 Test Item Value Reference Range Interpretation Comments CK (test code = 9829279083) 71 U/L 33-194 Lab Interpretation (test code = Normal 36144-8) [facility] GLUCOSE (AUTOMATED)2021-06-18 13:07:35 Test Item Value Reference Range Interpretation Comments POCT GLU (test code = 5744934338) 351 mg/dL 70-110 H Lab Interpretation (test code = Abnormal 73462-1) [facility] GLUCOSE(AGE >30DAYS)2021-06-18 13:04:00 Test Item Value Reference Range Interpretation Comments POCT Glu (age>30days) (test code = 351 mg/dL 70-110 A 3342) Lab Interpretation (test code = Abnormal 95439-3) [facility]. Metabolic Panel (06751)2021-06-18 11:14:20 Test Item Value Reference Range Interpretation Comments NA (test code = 134 mmol/L 135-145 L 0072904055) K (test code = 4.6 mmol/L 3.5-5.0 8450649480) CL (test code = 103 mmol/L 98-108 2182703859) CO2 TOTAL (test code = 18 mmol/L 23-31 L 8405049191) AGAP (test code = 2-16 6613848516) BUN (test code = 30 mg/dL 7-23 H 3529059654) GLUCOSE (test code = 390 mg/dL 70-110 H 8886342177) CREATININE (test code = 0.93 mg/dL 0.50-1.04 0019965443) TOTAL BILI (test code = 0.4 mg/dL 0.1-1.5 8894365072) CALCIUM (test code = 10.0 mg/dL 8.6-10.6 0900513782) T PROTEIN (test code = 7.6 g/dL 6.3-8.2 6390878876) ALBUMIN (test code = 4.5 g/dL 3.5-5.0 7687611359) ALK PHOS (test code = 51 U/L 34-122 3239828962) ALTv (test code = 34 U/L 5-35 1741-6) AST(SGOT) (test code = 26 U/L 13-40 3598702654) eGFR (test code = mL/min/1.73m2 2734270110) CALVIN (test code = CALVIN) Association of [...] tests). Lab Interpretation Abnormal (test code = 12649-3) [id number] Test Item Value Reference Range Interpretation Comments POCT PREG (test code = 1605) neg On board controls acceptable with yes C Line (test code = 3574) POCT PREG LOT # (test code = 3575) [id number] POCT PREG TEST DATE (test 08/10/2022 code = 3576) Lab Interpretation (test code = Normal 66787-5) [facility] [id number] 11:00:39 Test Item Value Reference Range Interpretation Comments WBC (test code = See_Comment [Automated 3790-2) message] The sy stem which generated this result transmitted reference range : 4.30 - 11.10 10*3/?L. The reference range was not used to interpret this result as normal/abnormal . RBC (test code = See_Comment [Automated 799-8) message] The sy stem which generated this [...] RDW-SD (test code = 40.1 fL 39.0-49.9 01712-3) RDW-CV (test code = 13.2 % 12.0-15.5 788-0) PLT (test code = See_Comment [Automated 567-3) message] The sy stem which generated this result transmitted reference range : 166 - 358 10*3/ ?L. The reference r doretha was not used to interpret this result as normal/abnormal . MPV (test code = 9.5 fL 9.5-12.9 67939-9) NRBC/100 WBC (test See_Comment [Automat ed code = 2545060912) message] The system which generated this result transmitted reference range : 0.0 - 10.0 /100 WBCs. The refer ence range was not u sed to interpret th is result as normal/abnormal . NRBC x10^3 (test code <0.01 See_Comment [Auto mated = [id number]) message] The s ystem which generated this result transmitted reference range : 10*3/?L. The reference range was not used to interpret this result as normal/abnormal . GRAN MAT (NEUT) % 43.7 % (test code = 770-8) IMM GRAN % (test code 0.70 % = 4412617439) LYMPH % (test code = 41.9 % 736-9) MONO % (test code = 8.8 % 5905-5) EOS % (test code = 3.6 % 713-8) BASO % (test code = 1.3 % 706-2) GRAN MAT x10^3(ANC) 2.68 10*3/uL 1.88-7.09 (test code = 1391544626) IMM GRAN x10^3 (test 0.04 10*3/uL 0.00-0.06 code = 6681574652) LYMPH x10^3 (test code 2.57 10*3/uL 1.32-3.29 = 731-0) MONO x10^3 (test code 0.54 10*3/uL 0.33-0.92 = 742-7) EOS x10^3 (test code = 0.22 10*3/uL 0.03-0.39 711-2) BASO x10^3 (test code 0.08 10*3/uL 0.01-0.07 H = 704-7) Lab Interpretation Abnormal (test code = 81277-2) [facility] [id number] 00:00:00 Test Item Value Reference Range Interpretation Comments ANDIE SPECIES (test code = 00468) NEGATIVE G. VAGINALIS (test code = 38938) NEGATIVE T. VAGINALIS (test code = 82479) NEGATIVE VAGINAL PATHOGENS DNA [id number] 00:00:00 Test Item Value Reference Range Interpretation Comments ANDIE SPECIES (test code = 19711) NEGATIVE G. VAGINALIS (test code = 49049) NEGATIVE T. VAGINALIS (test code = 88103) NEGATIVE VAGINAL PATHOGENS DNA [id number] 00:00:00 Test Item Value Reference Range Interpretation Comments ANDIE SPECIES (test code = 43324) NEGATIVE G. VAGINALIS (test code = 23953) NEGATIVE T. VAGINALIS (test code = 05575) NEGATIVE VAGINAL PATHOGENS DNA [id number] 00:00:00 Test Item Value Reference Range Interpretation Comments ANDIE SPECIES (test code = 14293) NEGATIVE G. VAGINALIS (test code = 55008) NEGATIVE T. VAGINALIS (test code = 50614) NEGATIVE VAGINAL PATHOGENS DNA [id number] 00:00:00 Test Item Value Reference Range Interpretation Comments ANDIE SPECIES (test code = 95475) NEGATIVE G. VAGINALIS (test code = 76906) NEGATIVE T. VAGINALIS (test code = 76275) NEGATIVE VAGINAL PATHOGENS DNA [id number] 00:00:00 Test Item Value Reference Range Interpretation Comments ANDIE SPECIES (test code = 93792) NEGATIVE G. VAGINALIS (test code = 85072) NEGATIVE T. VAGINALIS (test code = 16656) NEGATIVE VAGINAL PATHOGENS DNA [id number] 00:00:00 Test Item Value Reference Range Interpretation Comments ANDIE SPECIES (test code = 57092) NEGATIVE G. VAGINALIS (test code = 01953) NEGATIVE T. VAGINALIS (test code = 78059) NEGATIVE VAGINAL PATHOGENS DNA [id number] 00:00:00 Test Item Value Reference Range Interpretation Comments ANDIE SPECIES (test code = 07634) NEGATIVE G. VAGINALIS (test code = 60027) NEGATIVE T. VAGINALIS (test code = 24833) NEGATIVE VAGINAL PATHOGENS DNA [id number] 00:00:00 Test Item Value Reference Range Interpretation Comments ANDIE SPECIES (test code = 97013) NEGATIVE G. VAGINALIS (test code = 41205) NEGATIVE T. VAGINALIS (test code = 11366) NEGATIVE VAGINAL PATHOGENS DNA [id number] 00:00:00 Test Item Value Reference Range Interpretation Comments ANDIE SPECIES (test code = 87371) NEGATIVE G. VAGINALIS (test code = 88169) NEGATIVE T. VAGINALIS (test code = 12637) NEGATIVE VAGINAL PATHOGENS DNA [id number] 00:00:00 Test Item Value Reference Range Interpretation Comments ANDIE SPECIES (test code = 30152) NEGATIVE G. VAGINALIS (test code = 41979) NEGATIVE T. VAGINALIS (test code = 66265) NEGATIVE VAGINAL PATHOGENS DNA [id number] 00:00:00 Test Item Value Reference Range Interpretation Comments ANDIE SPECIES (test code = 48728) NEGATIVE G. VAGINALIS (test code = 51174) NEGATIVE T. VAGINALIS (test code = 21463) NEGATIVE VAGINAL PATHOGENS DNA [id number] 00:00:00 Test Item Value Reference Range Interpretation Comments ANDIE SPECIES (test code = 72558) NEGATIVE G. VAGINALIS (test code = 39005) NEGATIVE T. VAGINALIS (test code = 98425) NEGATIVE VAGINAL PATHOGENS DNA [id number] 00:00:00 Test Item Value Reference Range Interpretation Comments ANDIE SPECIES (test code = 90736) NEGATIVE G. VAGINALIS (test code = 60463) NEGATIVE T. VAGINALIS (test code = 15611) NEGATIVE VAGINAL PATHOGENS DNA [id number] 00:00:00 Test Item Value Reference Range Interpretation Comments ANDIE SPECIES (test code = 06385) NEGATIVE G. VAGINALIS (test code = 53179) NEGATIVE T. VAGINALIS (test code = 42563) NEGATIVE VAGINAL PATHOGENS DNA [id number] 00:00:00 Test Item Value Reference Range Interpretation Comments ANDIE SPECIES (test code = 62680) NEGATIVE G. VAGINALIS (test code = 50603) NEGATIVE T. VAGINALIS (test code = 32118) NEGATIVE VAGINAL PATHOGENS DNA [id number] 00:00:00 Test Item Value Reference Range Interpretation Comments ANDIE SPECIES (test code = 48948) NEGATIVE G. VAGINALIS (test code = 79933) NEGATIVE T. VAGINALIS (test code = 75557) NEGATIVE VAGINAL PATHOGENS DNA [id number] 00:00:00 Test Item Value Reference Range Interpretation Comments ANDIE SPECIES (test code = 90898) NEGATIVE G. VAGINALIS (test code = 03528) NEGATIVE T. VAGINALIS (test code = 59945) NEGATIVE VAGINAL PATHOGENS DNA [id number] 00:00:00 Test Item Value Reference Range Interpretation Comments ANDIE SPECIES (test code = 92273) NEGATIVE G. VAGINALIS (test code = 56914) NEGATIVE T. VAGINALIS (test code = 84881) NEGATIVE VAGINAL PATHOGENS DNA [id number] 00:00:00 Test Item Value Reference Range Interpretation Comments ANDIE SPECIES (test code = ) NEGATIVE G. VAGINALIS (test code = 94883) NEGATIVE T. VAGINALIS (test code = 63888) NEGATIVE VAGINAL PATHOGENS DNA [id number] 00:00:00 Test Item Value Reference Range Interpretation Comments ANDIE SPECIES (test code = ) NEGATIVE G. VAGINALIS (test code = 06148) NEGATIVE T. VAGINALIS (test code = 93455) NEGATIVE SARS-CoV-2 (COVID-19) by RT-PCR (HIGH RISK)2021-02-26 00:00:00 Test Item Value Reference Range Interpretation Comments SARS-CoV-2 INTERPRETATION (test NEGATIVE code = 45314) SOURCE (test code = 40201) NOT SPECIFIED SARS-CoV-2 (COVID-19) by RT-PCR (HIGH RISK)2021-02-26 00:00:00 Test Item Value Reference Range Interpretation Comments SARS-CoV-2 INTERPRETATION (test NEGATIVE code = 13801) SOURCE (test code = 69273) NOT SPECIFIED SARS-CoV-2 (COVID-19) by RT-PCR (HIGH RISK)2021-02-26 00:00:00 Test Item Value Reference Range Interpretation Comments SARS-CoV-2 INTERPRETATION (test NEGATIVE code = 28901) SOURCE (test code = 96978) NOT SPECIFIED SARS-CoV-2 (COVID-19) by RT-PCR (HIGH RISK)2021-02-26 00:00:00 Test Item Value Reference Range Interpretation Comments SARS-CoV-2 INTERPRETATION (test NEGATIVE code = 51753) SOURCE (test code = 81137) NOT SPECIFIED SARS-CoV-2 (COVID-19) by RT-PCR (HIGH RISK)2021-02-26 00:00:00 Test Item Value Reference Range Interpretation Comments SARS-CoV-2 INTERPRETATION (test NEGATIVE code = 09093) SOURCE (test code = 97314) NOT SPECIFIED SARS-CoV-2 (COVID-19) by RT-PCR (HIGH RISK)2021-02-26 00:00:00 Test Item Value Reference Range Interpretation Comments SARS-CoV-2 INTERPRETATION (test NEGATIVE code = 91928) SOURCE (test code = 14178) NOT SPECIFIED SARS-CoV-2 (COVID-19) by RT-PCR (HIGH RISK)2021-02-26 00:00:00 Test Item Value Reference Range Interpretation Comments SARS-CoV-2 INTERPRETATION (test NEGATIVE code = 86678) SOURCE (test code = 25078) NOT SPECIFIED SARS-CoV-2 (COVID-19) by RT-PCR (HIGH RISK)2021-02-26 00:00:00 Test Item Value Reference Range Interpretation Comments SARS-CoV-2 INTERPRETATION (test NEGATIVE code = 20218) SOURCE (test code = 98928) NOT SPECIFIED SARS-CoV-2 (COVID-19) by RT-PCR (HIGH RISK)2021-02-26 00:00:00 Test Item Value Reference Range Interpretation Comments SARS-CoV-2 INTERPRETATION (test NEGATIVE code = 58268) SOURCE (test code = 24749) NOT SPECIFIED SARS-CoV-2 (COVID-19) by RT-PCR (HIGH RISK)2021-02-26 00:00:00 Test Item Value Reference Range Interpretation Comments SARS-CoV-2 INTERPRETATION (test NEGATIVE code = 86960) SOURCE (test code = 02413) NOT SPECIFIED SARS-CoV-2 (COVID-19) by RT-PCR (HIGH RISK)2021-02-26 00:00:00 Test Item Value Reference Range Interpretation Comments SARS-CoV-2 INTERPRETATION (test NEGATIVE code = 81877) SOURCE (test code = 53577) NOT SPECIFIED SARS-CoV-2 (COVID-19) by RT-PCR (HIGH RISK)2021-02-26 00:00:00 Test Item Value Reference Range Interpretation Comments SARS-CoV-2 INTERPRETATION (test NEGATIVE code = 12996) SOURCE (test code = 86024) NOT SPECIFIED SARS-CoV-2 (COVID-19) by RT-PCR (HIGH RISK)2021-02-26 00:00:00 Test Item Value Reference Range Interpretation Comments SARS-CoV-2 INTERPRETATION (test NEGATIVE code = 93358) SOURCE (test code = 36049) NOT SPECIFIED SARS-CoV-2 (COVID-19) by RT-PCR (HIGH RISK)2021-02-26 00:00:00 Test Item Value Reference Range Interpretation Comments SARS-CoV-2 INTERPRETATION (test NEGATIVE code = 42883) SOURCE (test code = 84425) NOT SPECIFIED SARS-CoV-2 (COVID-19) by RT-PCR (HIGH RISK)2021-02-26 00:00:00 Test Item Value Reference Range Interpretation Comments SARS-CoV-2 INTERPRETATION (test NEGATIVE code = 92258) SOURCE (test code = 82835) NOT SPECIFIED SARS-CoV-2 (COVID-19) by RT-PCR (HIGH RISK)2021-02-26 00:00:00 Test Item Value Reference Range Interpretation Comments SARS-CoV-2 INTERPRETATION (test NEGATIVE code = 17558) SOURCE (test code = 02636) NOT SPECIFIED SARS-CoV-2 (COVID-19) by RT-PCR (HIGH RISK)2021-02-26 00:00:00 Test Item Value Reference Range Interpretation Comments SARS-CoV-2 INTERPRETATION (test NEGATIVE code = 82208) SOURCE (test code = 43778) NOT SPECIFIED SARS-CoV-2 (COVID-19) by RT-PCR (HIGH RISK)2021-02-26 00:00:00 Test Item Value Reference Range Interpretation Comments SARS-CoV-2 INTERPRETATION (test NEGATIVE code = 85879) SOURCE (test code = 10751) NOT SPECIFIED SARS-CoV-2 (COVID-19) by RT-PCR (HIGH RISK)2021-02-26 00:00:00 Test Item Value Reference Range Interpretation Comments SARS-CoV-2 INTERPRETATION (test NEGATIVE code = 82802) SOURCE (test code = 30553) NOT SPECIFIED SARS-CoV-2 (COVID-19) by RT-PCR (HIGH RISK)2021-02-26 00:00:00 Test Item Value Reference Range Interpretation Comments SARS-CoV-2 INTERPRETATION (test NEGATIVE code = 92337) SOURCE (test code = 72806) NOT SPECIFIED SARS-CoV-2 (COVID-19) by RT-PCR (HIGH RISK)2021-02-26 00:00:00 Test Item Value Reference Range Interpretation Comments SARS-CoV-2 INTERPRETATION (test NEGATIVE code = 46475) SOURCE (test code = 55526) NOT SPECIFIED CULTURE, URINE [ADDED]2021-02-13 00:00:00 Test Item Value Reference Range Interpretation Comments CULTURE, URINE (test SPECIMEN NUMBER: code = 96840) [id number] CULTURE, URINE [ADDED]2021-02-13 00:00:00 Test Item Value Reference Range Interpretation Comments CULTURE, URINE (test SPECIMEN NUMBER: code = 02689) [id number] CULTURE, URINE [ADDED]2021-02-13 00:00:00 Test Item Value Reference Range Interpretation Comments CULTURE, URINE (test SPECIMEN NUMBER: code = 21447) [id number] CULTURE, URINE [ADDED]2021-02-13 00:00:00 Test Item Value Reference Range Interpretation Comments CULTURE, URINE (test SPECIMEN NUMBER: code = 81875) [id number] CULTURE, URINE [ADDED]2021-02-13 00:00:00 Test Item Value Reference Range Interpretation Comments CULTURE, URINE (test SPECIMEN NUMBER: code = 89414) [id number] CULTURE, URINE [ADDED]2021-02-13 00:00:00 Test Item Value Reference Range Interpretation Comments CULTURE, URINE (test SPECIMEN NUMBER: code = 44124) [id number] CULTURE, URINE [ADDED]2021-02-13 00:00:00 Test Item Value Reference Range Interpretation Comments CULTURE, URINE (test SPECIMEN NUMBER: code = 67641) [id number] CULTURE, URINE [ADDED]2021-02-13 00:00:00 Test Item Value Reference Range Interpretation Comments CULTURE, URINE (test SPECIMEN NUMBER: code = 20463) [id number] CULTURE, URINE [ADDED]2021-02-13 00:00:00 Test Item Value Reference Range Interpretation Comments CULTURE, URINE (test SPECIMEN NUMBER: code = 73031) [id number] CULTURE, URINE [ADDED]2021-02-13 00:00:00 Test Item Value Reference Range Interpretation Comments CULTURE, URINE (test SPECIMEN NUMBER: code = 09355) [id number] CULTURE, URINE [ADDED]2021-02-13 00:00:00 Test Item Value Reference Range Interpretation Comments CULTURE, URINE (test SPECIMEN NUMBER: code = 65745) [id number] CULTURE, URINE [ADDED]2021-02-13 00:00:00 Test Item Value Reference Range Interpretation Comments CULTURE, URINE (test SPECIMEN NUMBER: code = 50794) [id number] CULTURE, URINE [ADDED]2021-02-13 00:00:00 Test Item Value Reference Range Interpretation Comments CULTURE, URINE (test SPECIMEN NUMBER: code = 70407) [id number] CULTURE, URINE [ADDED]2021-02-13 00:00:00 Test Item Value Reference Range Interpretation Comments CULTURE, URINE (test SPECIMEN NUMBER: code = 67209) [id number] CULTURE, URINE [ADDED]2021-02-13 00:00:00 Test Item Value Reference Range Interpretation Comments CULTURE, URINE (test SPECIMEN NUMBER: code = 81225) [id number] CULTURE, URINE [ADDED]2021-02-13 00:00:00 Test Item Value Reference Range Interpretation Comments CULTURE, URINE (test SPECIMEN NUMBER: code = 01870) [id number] CULTURE, URINE [ADDED]2021-02-13 00:00:00 Test Item Value Reference Range Interpretation Comments CULTURE, URINE (test SPECIMEN NUMBER: code = 03882) [id number] CULTURE, URINE [ADDED]2021-02-13 00:00:00 Test Item Value Reference Range Interpretation Comments CULTURE, URINE (test SPECIMEN NUMBER: code = 24147) [id number] CULTURE, URINE [ADDED]2021-02-13 00:00:00 Test Item Value Reference Range Interpretation Comments CULTURE, URINE (test SPECIMEN NUMBER: code = 08799) [id number] CULTURE, URINE [ADDED]2021-02-13 00:00:00 Test Item Value Reference Range Interpretation Comments CULTURE, URINE (test SPECIMEN NUMBER: code = 25334) [id number] CULTURE, URINE [ADDED]2021-02-13 00:00:00 Test Item Value Reference Range Interpretation Comments CULTURE, URINE (test SPECIMEN NUMBER: code = 47448) [id number] VAGINAL PATHOGENS DNA [id number] 00:00:00 Test Item Value Reference Range Interpretation Comments ANDIE SPECIES (test code = 93466) NEGATIVE G. VAGINALIS (test code = 89036) POSITIVE T. VAGINALIS (test code = 99009) NEGATIVE VAGINAL PATHOGENS DNA [id number] 00:00:00 Test Item Value Reference Range Interpretation Comments ANDIE SPECIES (test code = 66699) NEGATIVE G. VAGINALIS (test code = 44666) POSITIVE T. VAGINALIS (test code = 68861) NEGATIVE VAGINAL PATHOGENS DNA [id number] 00:00:00 Test Item Value Reference Range Interpretation Comments ANDIE SPECIES (test code = 11495) NEGATIVE G. VAGINALIS (test code = 36305) POSITIVE T. VAGINALIS (test code = 28892) NEGATIVE VAGINAL PATHOGENS DNA [id number] 00:00:00 Test Item Value Reference Range Interpretation Comments ANDIE SPECIES (test code = 67340) NEGATIVE G. VAGINALIS (test code = 13022) POSITIVE T. VAGINALIS (test code = 09177) NEGATIVE VAGINAL PATHOGENS DNA [id number] 00:00:00 Test Item Value Reference Range Interpretation Comments ANDIE SPECIES (test code = 26177) NEGATIVE G. VAGINALIS (test code = 24844) POSITIVE T. VAGINALIS (test code = 51053) NEGATIVE VAGINAL PATHOGENS DNA [id number] 00:00:00 Test Item Value Reference Range Interpretation Comments ANDIE SPECIES (test code = 71541) NEGATIVE G. VAGINALIS (test code = 58196) POSITIVE T. VAGINALIS (test code = 52467) NEGATIVE VAGINAL PATHOGENS DNA [id number] 00:00:00 Test Item Value Reference Range Interpretation Comments ANDIE SPECIES (test code = 46874) NEGATIVE G. VAGINALIS (test code = 36203) POSITIVE T. VAGINALIS (test code = 86750) NEGATIVE VAGINAL PATHOGENS DNA [id number] 00:00:00 Test Item Value Reference Range Interpretation Comments ANDIE SPECIES (test code = 99574) NEGATIVE G. VAGINALIS (test code = 18869) POSITIVE T. VAGINALIS (test code = 57835) NEGATIVE VAGINAL PATHOGENS DNA [id number] 00:00:00 Test Item Value Reference Range Interpretation Comments ANDIE SPECIES (test code = 48224) NEGATIVE G. VAGINALIS (test code = 05174) POSITIVE T. VAGINALIS (test code = 47830) NEGATIVE VAGINAL PATHOGENS DNA [id number] 00:00:00 Test Item Value Reference Range Interpretation Comments ANDIE SPECIES (test code = 04519) NEGATIVE G. VAGINALIS (test code = 10159) POSITIVE T. VAGINALIS (test code = 94838) NEGATIVE VAGINAL PATHOGENS DNA [id number] 00:00:00 Test Item Value Reference Range Interpretation Comments ANDIE SPECIES (test code = 74444) NEGATIVE G. VAGINALIS (test code = 38036) POSITIVE T. VAGINALIS (test code = 15587) NEGATIVE VAGINAL PATHOGENS DNA [id number] 00:00:00 Test Item Value Reference Range Interpretation Comments ANDIE SPECIES (test code = 04824) NEGATIVE G. VAGINALIS (test code = 59555) POSITIVE T. VAGINALIS (test code = 71295) NEGATIVE VAGINAL PATHOGENS DNA [id number] 00:00:00 Test Item Value Reference Range Interpretation Comments ANDIE SPECIES (test code = 86139) NEGATIVE G. VAGINALIS (test code = 18484) POSITIVE T. VAGINALIS (test code = 02676) NEGATIVE VAGINAL PATHOGENS DNA [id number] 00:00:00 Test Item Value Reference Range Interpretation Comments ANDIE SPECIES (test code = 83906) NEGATIVE G. VAGINALIS (test code = 80008) POSITIVE T. VAGINALIS (test code = 51176) NEGATIVE VAGINAL PATHOGENS DNA [id number] 00:00:00 Test Item Value Reference Range Interpretation Comments ANDIE SPECIES (test code = 98437) NEGATIVE G. VAGINALIS (test code = 00141) POSITIVE T. VAGINALIS (test code = 82338) NEGATIVE VAGINAL PATHOGENS DNA [id number] 00:00:00 Test Item Value Reference Range Interpretation Comments ANDIE SPECIES (test code = 16608) NEGATIVE G. VAGINALIS (test code = 37820) POSITIVE T. VAGINALIS (test code = 90782) NEGATIVE VAGINAL PATHOGENS DNA [id number] 00:00:00 Test Item Value Reference Range Interpretation Comments ANDIE SPECIES (test code = 60376) NEGATIVE G. VAGINALIS (test code = 01391) POSITIVE T. VAGINALIS (test code = 66578) NEGATIVE VAGINAL PATHOGENS DNA [id number] 00:00:00 Test Item Value Reference Range Interpretation Comments ANDIE SPECIES (test code = 71191) NEGATIVE G. VAGINALIS (test code = 96174) POSITIVE T. VAGINALIS (test code = 92379) NEGATIVE VAGINAL PATHOGENS DNA [id number] 00:00:00 Test Item Value Reference Range Interpretation Comments ANDIE SPECIES (test code = 80189) NEGATIVE G. VAGINALIS (test code = 43774) POSITIVE T. VAGINALIS (test code = 04985) NEGATIVE VAGINAL PATHOGENS DNA [id number] 00:00:00 Test Item Value Reference Range Interpretation Comments ANDIE SPECIES (test code = 39700) NEGATIVE G. VAGINALIS (test code = 14200) POSITIVE T. VAGINALIS (test code = 41610) NEGATIVE VAGINAL PATHOGENS DNA [id number] 00:00:00 Test Item Value Reference Range Interpretation Comments ANDIE SPECIES (test code = 18898) NEGATIVE G. VAGINALIS (test code = 74464) POSITIVE T. VAGINALIS (test code = 43415) NEGATIVE BLOOD GROUP (ABO) AND RH [id number] 00:00:00 Test Item Value Reference Range Interpretation Comments BLOOD TYPE AND RH (test code = A POSITIVE 3901) BLOOD GROUP (ABO) AND RH [id number] 00:00:00 Test Item Value Reference Range Interpretation Comments BLOOD TYPE AND RH (test code = A POSITIVE 3901) BLOOD GROUP (ABO) AND RH [id number] 00:00:00 Test Item Value Reference Range Interpretation Comments BLOOD TYPE AND RH (test code = A POSITIVE 3901) HEMOGLOBIN [id number] 00:00:00 Test Item Value Reference Range Interpretation Comments HEMOGLOBIN A1c (test code = 41772) 11.8 % HEMOGLOBIN [id number] 00:00:00 Test Item Value Reference Range Interpretation Comments HEMOGLOBIN A1c (test code = 29357) 11.8 % HEMOGLOBIN [id number] 00:00:00 Test Item Value Reference Range Interpretation Comments HEMOGLOBIN A1c (test code = 53722) 11.8 % BLOOD GROUP (ABO) AND RH [id number] 00:00:00 Test Item Value Reference Range Interpretation Comments BLOOD TYPE AND RH (test code = A POSITIVE 3901) BLOOD GROUP (ABO) AND RH [id number] 00:00:00 Test Item Value Reference Range Interpretation Comments BLOOD TYPE AND RH (test code = A POSITIVE 3901) BLOOD GROUP (ABO) AND RH [id number] 00:00:00 Test Item Value Reference Range Interpretation Comments BLOOD TYPE AND RH (test code = A POSITIVE 3901) HEMOGLOBIN [id number] 00:00:00 Test Item Value Reference Range Interpretation Comments HEMOGLOBIN A1c (test code = 02722) 11.8 % HEMOGLOBIN [id number] 00:00:00 Test Item Value Reference Range Interpretation Comments HEMOGLOBIN A1c (test code = 98332) 11.8 % HEMOGLOBIN [id number] 00:00:00 Test Item Value Reference Range Interpretation Comments HEMOGLOBIN A1c (test code = 67295) 11.8 % BLOOD GROUP (ABO) AND RH [id number] 00:00:00 Test Item Value Reference Range Interpretation Comments BLOOD TYPE AND RH (test code = A POSITIVE 3901) BLOOD GROUP (ABO) AND RH [id number] 00:00:00 Test Item Value Reference Range Interpretation Comments BLOOD TYPE AND RH (test code = A POSITIVE 3901) BLOOD GROUP (ABO) AND RH [id number] 00:00:00 Test Item Value Reference Range Interpretation Comments BLOOD TYPE AND RH (test code = A POSITIVE 3901) HEMOGLOBIN [id number] 00:00:00 Test Item Value Reference Range Interpretation Comments HEMOGLOBIN A1c (test code = 44167) 11.8 % HEMOGLOBIN [id number] 00:00:00 Test Item Value Reference Range Interpretation Comments HEMOGLOBIN A1c (test code = 78674) 11.8 % HEMOGLOBIN [id number] 00:00:00 Test Item Value Reference Range Interpretation Comments HEMOGLOBIN A1c (test code = 62440) 11.8 % BLOOD GROUP (ABO) AND RH [id number] 00:00:00 Test Item Value Reference Range Interpretation Comments BLOOD TYPE AND RH (test code = A POSITIVE 3901) BLOOD GROUP (ABO) AND RH [id number] 00:00:00 Test Item Value Reference Range Interpretation Comments BLOOD TYPE AND RH (test code = A POSITIVE 3901) BLOOD GROUP (ABO) AND RH [id number] 00:00:00 Test Item Value Reference Range Interpretation Comments BLOOD TYPE AND RH (test code = A POSITIVE 3901) HEMOGLOBIN [id number] 00:00:00 Test Item Value Reference Range Interpretation Comments HEMOGLOBIN A1c (test code = 03549) 11.8 % HEMOGLOBIN [id number] 00:00:00 Test Item Value Reference Range Interpretation Comments HEMOGLOBIN A1c (test code = 51837) 11.8 % HEMOGLOBIN [id number] 00:00:00 Test Item Value Reference Range Interpretation Comments HEMOGLOBIN A1c (test code = 63856) 11.8 % BLOOD GROUP (ABO) AND RH [id number] 00:00:00 Test Item Value Reference Range Interpretation Comments BLOOD TYPE AND RH (test code = A POSITIVE 3901) BLOOD GROUP (ABO) AND RH [id number] 00:00:00 Test Item Value Reference Range Interpretation Comments BLOOD TYPE AND RH (test code = A POSITIVE 3901) BLOOD GROUP (ABO) AND RH [id number] 00:00:00 Test Item Value Reference Range Interpretation Comments BLOOD TYPE AND RH (test code = A POSITIVE 3901) HEMOGLOBIN [id number] 00:00:00 Test Item Value Reference Range Interpretation Comments HEMOGLOBIN A1c (test code = 67223) 11.8 % HEMOGLOBIN [id number] 00:00:00 Test Item Value Reference Range Interpretation Comments HEMOGLOBIN A1c (test code = 51651) 11.8 % HEMOGLOBIN [id number] 00:00:00 Test Item Value Reference Range Interpretation Comments HEMOGLOBIN A1c (test code = 25970) 11.8 % BLOOD GROUP (ABO) AND RH [id number] 00:00:00 Test Item Value Reference Range Interpretation Comments BLOOD TYPE AND RH (test code = A POSITIVE 3901) BLOOD GROUP (ABO) AND RH [id number] 00:00:00 Test Item Value Reference Range Interpretation Comments BLOOD TYPE AND RH (test code = A POSITIVE 3901) BLOOD GROUP (ABO) AND RH [id number] 00:00:00 Test Item Value Reference Range Interpretation Comments BLOOD TYPE AND RH (test code = A POSITIVE 3901) HEMOGLOBIN [id number] 00:00:00 Test Item Value Reference Range Interpretation Comments HEMOGLOBIN A1c (test code = 47546) 11.8 % HEMOGLOBIN [id number] 00:00:00 Test Item Value Reference Range Interpretation Comments HEMOGLOBIN A1c (test code = 17749) 11.8 % HEMOGLOBIN [id number] 00:00:00 Test Item Value Reference Range Interpretation Comments HEMOGLOBIN A1c (test code = 41037) 11.8 % BLOOD GROUP (ABO) AND RH [id number] 00:00:00 Test Item Value Reference Range Interpretation Comments BLOOD TYPE AND RH (test code = A POSITIVE 3901) BLOOD GROUP (ABO) AND RH [id number] 00:00:00 Test Item Value Reference Range Interpretation Comments BLOOD TYPE AND RH (test code = A POSITIVE 3901) BLOOD GROUP (ABO) AND RH [id number] 00:00:00 Test Item Value Reference Range Interpretation Comments BLOOD TYPE AND RH (test code = A POSITIVE 3901) HEMOGLOBIN [id number] 00:00:00 Test Item Value Reference Range Interpretation Comments HEMOGLOBIN A1c (test code = 35437) 11.8 % BLOOD GROUP (ABO) AND RH [id number] 00:00:00 Test Item Value Reference Range Interpretation Comments BLOOD TYPE AND RH (test code = A POSITIVE 3901) HEMOGLOBIN [id number] 00:00:00 Test Item Value Reference Range Interpretation Comments HEMOGLOBIN A1c (test code = 30075) 11.8 % HEMOGLOBIN [id number] 00:00:00 Test Item Value Reference Range Interpretation Comments HEMOGLOBIN A1c (test code = 08984) 11.8 % BLOOD GROUP (ABO) AND RH [id number] 00:00:00 Test Item Value Reference Range Interpretation Comments BLOOD TYPE AND RH (test code = A POSITIVE 3901) HEMOGLOBIN [id number] 00:00:00 Test Item Value Reference Range Interpretation Comments HEMOGLOBIN A1c (test code = 50425) 11.8 % HEMOGLOBIN [id number] 00:00:00 Test Item Value Reference Range Interpretation Comments HEMOGLOBIN A1c (test code = 39735) 11.8 % BLOOD GROUP (ABO) AND RH [id number] 00:00:00 Test Item Value Reference Range Interpretation Comments BLOOD TYPE AND RH (test code = A POSITIVE 3901) BLOOD GROUP (ABO) AND RH [id number] 00:00:00 Test Item Value Reference Range Interpretation Comments BLOOD TYPE AND RH (test code = A POSITIVE 3901) BLOOD GROUP (ABO) AND RH [id number] 00:00:00 Test Item Value Reference Range Interpretation Comments BLOOD TYPE AND RH (test code = A POSITIVE 3901) HEMOGLOBIN [id number] 00:00:00 Test Item Value Reference Range Interpretation Comments HEMOGLOBIN A1c (test code = 61090) 11.8 % HEMOGLOBIN [id number] 00:00:00 Test Item Value Reference Range Interpretation Comments HEMOGLOBIN A1c (test code = 68236) 11.8 % HEMOGLOBIN [id number] 00:00:00 Test Item Value Reference Range Interpretation Comments HEMOGLOBIN A1c (test code = 37864) 11.8 % BLOOD GROUP (ABO) AND RH [id number] 00:00:00 Test Item Value Reference Range Interpretation Comments BLOOD TYPE AND RH (test code = A POSITIVE 3901) BLOOD GROUP (ABO) AND RH [id number] 00:00:00 Test Item Value Reference Range Interpretation Comments BLOOD TYPE AND RH (test code = A POSITIVE 3901) BLOOD GROUP (ABO) AND RH [id number] 00:00:00 Test Item Value Reference Range Interpretation Comments BLOOD TYPE AND RH (test code = A POSITIVE 3901) HEMOGLOBIN [id number] 00:00:00 Test Item Value Reference Range Interpretation Comments HEMOGLOBIN A1c (test code = 54315) 11.8 % HEMOGLOBIN [id number] 00:00:00 Test Item Value Reference Range Interpretation Comments HEMOGLOBIN A1c (test code = 74403) 11.8 % HEMOGLOBIN [id number] 00:00:00 Test Item Value Reference Range Interpretation Comments HEMOGLOBIN A1c (test code = 63166) 11.8 % BLOOD GROUP (ABO) AND RH [id number] 00:00:00 Test Item Value Reference Range Interpretation Comments BLOOD TYPE AND RH (test code = A POSITIVE 3901) BLOOD GROUP (ABO) AND RH [id number] 00:00:00 Test Item Value Reference Range Interpretation Comments BLOOD TYPE AND RH (test code = A POSITIVE 3901) BLOOD GROUP (ABO) AND RH [id number] 00:00:00 Test Item Value Reference Range Interpretation Comments BLOOD TYPE AND RH (test code = A POSITIVE 3901) HEMOGLOBIN [id number] 00:00:00 Test Item Value Reference Range Interpretation Comments HEMOGLOBIN A1c (test code = 64177) 11.8 % HEMOGLOBIN [id number] 00:00:00 Test Item Value Reference Range Interpretation Comments HEMOGLOBIN A1c (test code = 03769) 11.8 % HEMOGLOBIN [id number] 00:00:00 Test Item Value Reference Range Interpretation Comments HEMOGLOBIN A1c (test code = 30867) 11.8 % COMPREHENSIVE METABOLIC [id number] 00:00:00 Test Item Value Reference Range Interpretation Comments GLUCOSE (test code = 2217) 277 MG/DL BUN (test code = 2208) 26 MG/DL CREATININE (test code = 2214) 1.04 MG/DL eGFR AMER. (test code 77 ML/MIN/1.73 = 49075) eGFR NON- AMER. (test 66 ML/MIN/1.73 code = 40931) CALC BUN/CREAT (test code = 25 RATIO [...] code = 2219) 51 U/L COMPREHENSIVE METABOLIC [id number] 00:00:00 Test Item Value Reference Range Interpretation Comments GLUCOSE (test code = 2217) 277 MG/DL BUN (test code = 2208) 26 MG/DL CREATININE (test code = 2214) 1.04 MG/DL eGFR AMER. (test code 77 ML/MIN/1.73 = 33773) eGFR NON- AMER. (test 66 ML/MIN/1.73 code = 24555) CALC BUN/CREAT (test code = 25 RATIO [...] (test code = 2219) 51 U/L CULTURE, [id number] 00:00:00 Test Item Value Reference Range Interpretation Comments CULTURE, URINE (test SPECIMEN NUMBER: code = 37371) [id number] CULTURE, [id number] 00:00:00 Test Item Value Reference Range Interpretation Comments CULTURE, URINE (test SPECIMEN NUMBER: code = 13971) [id number] COMPREHENSIVE METABOLIC [id number] 00:00:00 Test Item Value Reference Range Interpretation Comments GLUCOSE (test code = 2217) 277 MG/DL BUN (test code = 2208) 26 MG/DL CREATININE (test code = 2214) 1.04 MG/DL eGFR AMER. (test code 77 ML/MIN/1.73 = 81484) eGFR NON- AMER. (test 66 ML/MIN/1.73 code = 83426) CALC BUN/CREAT (test code = 25 RATIO 2235) SODIUM (test code = 2231) 137 MEQ/L POTASSIUM (test code = 2228) 4.3 MEQ/L CHLORIDE (test code = 2215) 96 MEQ/L CARBON DIOXIDE (test code = 24 MEQ/L 2206) CALCIUM (test code = 2209) 10.8 MG/DL [...] code = 2219) 51 U/L COMPREHENSIVE METABOLIC [id number] 00:00:00 Test Item Value Reference Range Interpretation Comments GLUCOSE (test code = 2217) 277 MG/DL BUN (test code = 2208) 26 MG/DL CREATININE (test code = 2214) 1.04 MG/DL eGFR AMER. (test code 77 ML/MIN/1.73 = 81597) eGFR NON- AMER. (test 66 ML/MIN/1.73 code = 37712) CALC BUN/CREAT (test code = 25 RATIO 2235) SODIUM (test code = 2231) 137 MEQ/L POTASSIUM (test code = 2228) 4.3 MEQ/L CHLORIDE (test code = 2215) 96 MEQ/L CARBON DIOXIDE (test code = 24 MEQ/L 2206) CALCIUM (test code = 2209) 10.8 MG/DL [...] (test code = 2219) 51 U/L CULTURE, [id number] 00:00:00 Test Item Value Reference Range Interpretation Comments CULTURE, URINE (test SPECIMEN NUMBER: code = 33611) [id number] CULTURE, [id number] 00:00:00 Test Item Value Reference Range Interpretation Comments CULTURE, URINE (test SPECIMEN NUMBER: code = 63863) [id number] COMPREHENSIVE METABOLIC [id number] 00:00:00 Test Item Value Reference Range Interpretation Comments GLUCOSE (test code = 2217) 277 MG/DL BUN (test code = 2208) 26 MG/DL CREATININE (test code = 2214) 1.04 MG/DL eGFR AMER. (test code 77 ML/MIN/1.73 = 53028) eGFR NON- AMER. (test 66 ML/MIN/1.73 code = 86350) CALC BUN/CREAT (test code = 25 RATIO 2235) SODIUM (test code = 2231) 137 MEQ/L POTASSIUM (test code = 2228) 4.3 MEQ/L CHLORIDE (test code = 2215) 96 MEQ/L CARBON DIOXIDE (test code = 24 MEQ/L 2205) CALCIUM (test code = 2209) 10.8 MG/DL PROTEIN, TOTAL (test code = 8.5 G/DL 222) ALBUMIN (test code = 2201) 5.3 G/DL CALC GLOBULIN (test code = 3.2 G/DL 2240) CALC A/G RATIO (test code = 1.7 RATIO 2234) BILIRUBIN, TOTAL (test code = 0.3 MG/DL 2206) ALKALINE PHOSPHATASE (test 44 U/L code = 2204) AST (test code = 2218) 32 U/L ALT (test code = 2219) 51 U/L COMPREHENSIVE METABOLIC [id number] 00:00:00 Test Item Value Reference Range Interpretation Comments GLUCOSE (test code = 2217) 277 MG/DL BUN (test code = 2208) 26 MG/DL CREATININE (test code = 2214) 1.04 MG/DL eGFR AMER. (test code 77 ML/MIN/1.73 = 66972) eGFR NON- AMER. (test 66 ML/MIN/1.73 code = 99892) CALC BUN/CREAT (test code = 25 RATIO [...] ALKALINE PHOSPHATASE (test 44 U/L code = 220) AST (test code = 2218) 32 U/L ALT (test code = 2219) 51 U/L CULTURE, [id number] 00:00:00 Test Item Value Reference Range Interpretation Comments CULTURE, URINE (test SPECIMEN NUMBER: code = 89534) [id number] CULTURE, [id number] 00:00:00 Test Item Value Reference Range Interpretation Comments CULTURE, URINE (test SPECIMEN NUMBER: code = 85953) [id number] COMPREHENSIVE METABOLIC [id number] 00:00:00 Test Item Value Reference Range Interpretation Comments GLUCOSE (test code = 2217) 277 MG/DL BUN (test code = 2208) 26 MG/DL CREATININE (test code = 2214) 1.04 MG/DL eGFR AMER. (test code 77 ML/MIN/1.73 = 88770) eGFR NON- AMER. (test 66 ML/MIN/1.73 code = 85956) CALC BUN/CREAT (test code = 25 RATIO [...] = 0.3 MG/DL 2207) ALKALINE PHOSPHATASE (test 44 U/L code = 2204) AST (test code = 2218) 32 U/L ALT (test code = 2219) 51 U/L COMPREHENSIVE METABOLIC [id number] 00:00:00 Test Item Value Reference Range Interpretation Comments GLUCOSE (test code = 2217) 277 MG/DL BUN (test code = 2208) 26 MG/DL CREATININE (test code = 2214) 1.04 MG/DL eGFR AMER. (test code 77 ML/MIN/1.73 = 96872) eGFR NON- AMER. (test 66 ML/MIN/1.73 code = 27185) CALC BUN/CREAT (test code = 25 RATIO [...] (test code = 2219) 51 U/L CULTURE, [id number] 00:00:00 Test Item Value Reference Range Interpretation Comments CULTURE, URINE (test SPECIMEN NUMBER: code = 32036) [id number] CULTURE, [id number] 00:00:00 Test Item Value Reference Range Interpretation Comments CULTURE, URINE (test SPECIMEN NUMBER: code = 31166) [id number] COMPREHENSIVE METABOLIC [id number] 00:00:00 Test Item Value Reference Range Interpretation Comments GLUCOSE (test code = 2217) 277 MG/DL BUN (test code = 2208) 26 MG/DL CREATININE (test code = 2214) 1.04 MG/DL eGFR AMER. (test code 77 ML/MIN/1.73 = 98799) eGFR NON- AMER. (test 66 ML/MIN/1.73 code = 87356) CALC BUN/CREAT (test code = 25 RATIO 2235) SODIUM (test code = 2231) 137 MEQ/L POTASSIUM (test code = 2228) 4.3 MEQ/L CHLORIDE (test code = 2215) 96 MEQ/L CARBON DIOXIDE (test code = 24 MEQ/L 2206) CALCIUM (test code = 2209) 10.8 MG/DL [...] code = 2219) 51 U/L COMPREHENSIVE METABOLIC [id number] 00:00:00 Test Item Value Reference Range Interpretation Comments GLUCOSE (test code = 2217) 277 MG/DL BUN (test code = 2208) 26 MG/DL CREATININE (test code = 2214) 1.04 MG/DL eGFR AMER. (test code 77 ML/MIN/1.73 = 50896) eGFR NON- AMER. (test 66 ML/MIN/1.73 code = 92661) CALC BUN/CREAT (test code = 25 RATIO [...] (test code = 2219) 51 U/L CULTURE, [id number] 00:00:00 Test Item Value Reference Range Interpretation Comments CULTURE, URINE (test SPECIMEN NUMBER: code = 59425) [id number] CULTURE, [id number] 00:00:00 Test Item Value Reference Range Interpretation Comments CULTURE, URINE (test SPECIMEN NUMBER: code = 59823) [id number] COMPREHENSIVE METABOLIC [id number] 00:00:00 Test Item Value Reference Range Interpretation Comments GLUCOSE (test code = 2217) 277 MG/DL BUN (test code = 2208) 26 MG/DL CREATININE (test code = 2214) 1.04 MG/DL eGFR AMER. (test code 77 ML/MIN/1.73 = 19276) eGFR NON- AMER. (test 66 ML/MIN/1.73 code = 44831) CALC BUN/CREAT (test code = 25 RATIO [...] code = 2219) 51 U/L COMPREHENSIVE METABOLIC [id number] 00:00:00 Test Item Value Reference Range Interpretation Comments GLUCOSE (test code = 2217) 277 MG/DL BUN (test code = 2208) 26 MG/DL CREATININE (test code = 2214) 1.04 MG/DL eGFR AMER. (test code 77 ML/MIN/1.73 = 79542) eGFR NON- AMER. (test 66 ML/MIN/1.73 code = 23913) CALC BUN/CREAT (test code = 25 RATIO [...] ALKALINE PHOSPHATASE (test 44 U/L code = 220) AST (test code = 2218) 32 U/L ALT (test code = 2219) 51 U/L CULTURE, [id number] 00:00:00 Test Item Value Reference Range Interpretation Comments CULTURE, URINE (test SPECIMEN NUMBER: code = 50289) [id number] CULTURE, [id number] 00:00:00 Test Item Value Reference Range Interpretation Comments CULTURE, URINE (test SPECIMEN NUMBER: code = 58049) [id number] COMPREHENSIVE METABOLIC [id number] 00:00:00 Test Item Value Reference Range Interpretation Comments GLUCOSE (test code = 2217) 277 MG/DL BUN (test code = 2208) 26 MG/DL CREATININE (test code = 2214) 1.04 MG/DL eGFR AMER. (test code 77 ML/MIN/1.73 = 34828) eGFR NON- AMER. (test 66 ML/MIN/1.73 code = 25665) CALC BUN/CREAT (test code = 25 RATIO [...] = 0.3 MG/DL 2207) ALKALINE PHOSPHATASE (test 44 U/L code = 2204) AST (test code = 2218) 32 U/L ALT (test code = 2219) 51 U/L COMPREHENSIVE METABOLIC [id number] 00:00:00 Test Item Value Reference Range Interpretation Comments GLUCOSE (test code = 2217) 277 MG/DL BUN (test code = 2208) 26 MG/DL CREATININE (test code = 2214) 1.04 MG/DL eGFR AMER. (test code 77 ML/MIN/1.73 = 76551) eGFR NON- AMER. (test 66 ML/MIN/1.73 code = 18726) CALC BUN/CREAT (test code = 25 RATIO [...] (test code = 2219) 51 U/L CULTURE, [id number] 00:00:00 Test Item Value Reference Range Interpretation Comments CULTURE, URINE (test SPECIMEN NUMBER: code = 59829) [id number] CULTURE, [id number] 00:00:00 Test Item Value Reference Range Interpretation Comments CULTURE, URINE (test SPECIMEN NUMBER: code = 70920) [id number] COMPREHENSIVE METABOLIC [id number] 00:00:00 Test Item Value Reference Range Interpretation Comments GLUCOSE (test code = 2217) 277 MG/DL BUN (test code = 2208) 26 MG/DL CREATININE (test code = 2214) 1.04 MG/DL eGFR AMER. (test code 77 ML/MIN/1.73 = 72347) eGFR NON- AMER. (test 66 ML/MIN/1.73 code = 51431) CALC BUN/CREAT (test code = 25 RATIO [...] (test code = 2219) 51 U/L CULTURE, [id number] 00:00:00 Test Item Value Reference Range Interpretation Comments CULTURE, URINE (test SPECIMEN NUMBER: code = 44702) [id number] COMPREHENSIVE METABOLIC [id number] 00:00:00 Test Item Value Reference Range Interpretation Comments GLUCOSE (test code = 2217) 277 MG/DL BUN (test code = 2208) 26 MG/DL CREATININE (test code = 2214) 1.04 MG/DL eGFR AMER. (test code 77 ML/MIN/1.73 = 69054) eGFR NON- AMER. (test 66 ML/MIN/1.73 code = 38661) CALC BUN/CREAT (test code = 25 RATIO [...] A/G RATIO (test code = 1.7 RATIO 223) BILIRUBIN, TOTAL (test code = 0.3 MG/DL 2207) ALKALINE PHOSPHATASE (test 44 U/L code = 2204) AST (test code = 2218) 32 U/L ALT (test code = 2219) 51 U/L COMPREHENSIVE METABOLIC [id number] 00:00:00 Test Item Value Reference Range Interpretation Comments GLUCOSE (test code = 2217) 277 MG/DL BUN (test code = 2208) 26 MG/DL CREATININE (test code = 2214) 1.04 MG/DL eGFR AMER. (test code 77 ML/MIN/1.73 = 76551) eGFR NON- AMER. (test 66 ML/MIN/1.73 code = 09155) CALC BUN/CREAT (test code = 25 RATIO [...] (test code = 2219) 51 U/L CULTURE, [id number] 00:00:00 Test Item Value Reference Range Interpretation Comments CULTURE, URINE (test SPECIMEN NUMBER: code = 72379) [id number] CULTURE, [id number] 00:00:00 Test Item Value Reference Range Interpretation Comments CULTURE, URINE (test SPECIMEN NUMBER: code = 74185) [id number] COMPREHENSIVE METABOLIC [id number] 00:00:00 Test Item Value Reference Range Interpretation Comments GLUCOSE (test code = 2217) 277 MG/DL BUN (test code = 2208) 26 MG/DL CREATININE (test code = 2214) 1.04 MG/DL eGFR AMER. (test code 77 ML/MIN/1.73 = 57103) eGFR NON- AMER. (test 66 ML/MIN/1.73 code = 25648) CALC BUN/CREAT (test code = 25 RATIO [...] code = 2219) 51 U/L COMPREHENSIVE METABOLIC [id number] 00:00:00 Test Item Value Reference Range Interpretation Comments GLUCOSE (test code = 2217) 277 MG/DL BUN (test code = 2208) 26 MG/DL CREATININE (test code = 2214) 1.04 MG/DL eGFR AMER. (test code 77 ML/MIN/1.73 = 05724) eGFR NON- AMER. (test 66 ML/MIN/1.73 code = 07973) CALC BUN/CREAT (test code = 25 RATIO [...] (test code = 2219) 51 U/L CULTURE, [id number] 00:00:00 Test Item Value Reference Range Interpretation Comments CULTURE, URINE (test SPECIMEN NUMBER: code = 73306) [id number] CULTURE, [id number] 00:00:00 Test Item Value Reference Range Interpretation Comments CULTURE, URINE (test SPECIMEN NUMBER: code = 08699) [id number] COMPREHENSIVE METABOLIC [id number] 00:00:00 Test Item Value Reference Range Interpretation Comments GLUCOSE (test code = 2217) 277 MG/DL BUN (test code = 2208) 26 MG/DL CREATININE (test code = 2214) 1.04 MG/DL eGFR AMER. (test code 77 ML/MIN/1.73 = 90457) eGFR NON- AMER. (test 66 ML/MIN/1.73 code = 00736) CALC BUN/CREAT (test code = 25 RATIO [...] CALC GLOBULIN (test code = 3.2 G/DL 0) CALC A/G RATIO (test code = 1.7 RATIO 2234) BILIRUBIN, TOTAL (test code = 0.3 MG/DL 2206) ALKALINE PHOSPHATASE (test 44 U/L code = 2204) AST (test code = 2218) 32 U/L ALT (test code = 2219) 51 U/L COMPREHENSIVE METABOLIC [id number] 00:00:00 Test Item Value Reference Range Interpretation Comments GLUCOSE (test code = 2217) 277 MG/DL BUN (test code = 2208) 26 MG/DL CREATININE (test code = 2214) 1.04 MG/DL eGFR AMER. (test code 77 ML/MIN/1.73 = 09095) eGFR NON- AMER. (test 66 ML/MIN/1.73 code = 53527) CALC BUN/CREAT (test code = 25 RATIO [...] (test code = 2219) 51 U/L CULTURE, [id number] 00:00:00 Test Item Value Reference Range Interpretation Comments CULTURE, URINE (test SPECIMEN NUMBER: code = 41813) [id number] CULTURE, [id number] 00:00:00 Test Item Value Reference Range Interpretation Comments CULTURE, URINE (test SPECIMEN NUMBER: code = 25436) [id number] CBC W/AUTO [id number] 00:00:00 Test Item Value Reference Range Interpretation [...] NUCLEATED RBCS (test code = 0.00 K/UL 50992) CBC W/AUTO [id number] 00:00:00 Test Item Value Reference Range Interpretation [...] NUCLEATED RBCS (test code = 0.00 K/UL 09523) CBC W/AUTO [id number] 00:00:00 Test Item Value Reference Range Interpretation [...] NUCLEATED RBCS (test code = 0.00 K/UL 61202) CBC W/AUTO [id number] 00:00:00 Test Item Value Reference Range Interpretation [...] NUCLEATED RBCS (test code = 0.00 K/UL 43953) CBC W/AUTO [id number] 00:00:00 Test Item Value Reference Range Interpretation [...] NUCLEATED RBCS (test code = 0.00 K/UL 89222) CBC W/AUTO [id number] 00:00:00 Test Item Value Reference Range Interpretation [...] NUCLEATED RBCS (test code = 0.00 K/UL 25798) CBC W/AUTO [id number] 00:00:00 Test Item Value Reference Range Interpretation [...] NUCLEATED RBCS (test code = 0.00 K/UL 37981) CBC W/AUTO [id number] 00:00:00 Test Item Value Reference Range Interpretation [...] NUCLEATED RBCS (test code = 0.00 K/UL 11934) CBC W/AUTO [id number] 00:00:00 Test Item Value Reference Range Interpretation [...] NUCLEATED RBCS (test code = 0.00 K/UL 62431) CBC W/AUTO [id number] 00:00:00 Test Item Value Reference Range Interpretation [...] NUCLEATED RBCS (test code = 0.00 K/UL 10077) CBC W/AUTO [id number] 00:00:00 Test Item Value Reference Range Interpretation [...] NUCLEATED RBCS (test code = 0.00 K/UL 35385) CBC W/AUTO [id number] 00:00:00 Test Item Value Reference Range Interpretation [...] NUCLEATED RBCS (test code = 0.00 K/UL 92309) CBC W/AUTO [id number] 00:00:00 Test Item Value Reference Range Interpretation [...] NUCLEATED RBCS (test code = 0.00 K/UL 05597) CBC W/AUTO [id number] 00:00:00 Test Item Value Reference Range Interpretation [...] NUCLEATED RBCS (test code = 0.00 K/UL 22851) CBC W/AUTO [id number] 00:00:00 Test Item Value Reference Range Interpretation [...] NUCLEATED RBCS (test code = 0.00 K/UL 08151) CBC W/AUTO [id number] 00:00:00 Test Item Value Reference Range Interpretation [...] NUCLEATED RBCS (test code = 0.00 K/UL 09022) CBC W/AUTO [id number] 00:00:00 Test Item Value Reference Range Interpretation [...] NUCLEATED RBCS (test code = 0.00 K/UL 18232) CBC W/AUTO [id number] 00:00:00 Test Item Value Reference Range Interpretation [...] NUCLEATED RBCS (test code = 0.00 K/UL 72723) CBC W/AUTO [id number] 00:00:00 Test Item Value Reference Range Interpretation [...] NUCLEATED RBCS (test code = 0.00 K/UL 89034) CBC W/AUTO [id number] 00:00:00 Test Item Value Reference Range Interpretation [...] NUCLEATED RBCS (test code = 0.00 K/UL 36610) CBC W/AUTO [id number] 00:00:00 Test Item Value Reference Range Interpretation [...] NUCLEATED RBCS (test code = 0.00 K/UL 08974) CBC W/AUTO [id number] 00:00:00 Test Item Value Reference Range Interpretation [...] NUCLEATED RBCS (test code = 0.00 K/UL 51914) CBC W/AUTO [id number] 00:00:00 Test Item Value Reference Range Interpretation [...] NUCLEATED RBCS (test code = 0.00 K/UL 52762) CBC W/AUTO [id number] 00:00:00 Test Item Value Reference Range Interpretation [...] NUCLEATED RBCS (test code = 0.00 K/UL 79161) CBC W/AUTO [id number] 00:00:00 Test Item Value Reference Range Interpretation [...] NUCLEATED RBCS (test code = 0.00 K/UL 93042) CBC W/AUTO [id number] 00:00:00 Test Item Value Reference Range Interpretation [...] NUCLEATED RBCS (test code = 0.00 K/UL 67779) CBC W/AUTO [id number] 00:00:00 Test Item Value Reference Range Interpretation [...] NUCLEATED RBCS (test code = 0.00 K/UL 88925) CBC W/AUTO [id number] 00:00:00 Test Item Value Reference Range Interpretation [...] NUCLEATED RBCS (test code = 0.00 K/UL 35962) CBC W/AUTO [id number] 00:00:00 Test Item Value Reference Range Interpretation [...] NUCLEATED RBCS (test code = 0.00 K/UL 38694) CBC W/AUTO [id number] 00:00:00 Test Item Value Reference Range Interpretation [...] NUCLEATED RBCS (test code = 0.00 K/UL 74615) CBC W/AUTO [id number] 00:00:00 Test Item Value Reference Range Interpretation [...] NUCLEATED RBCS (test code = 0.00 K/UL 26385) CBC W/AUTO [id number] 00:00:00 Test Item Value Reference Range Interpretation [...] NUCLEATED RBCS (test code = 0.00 K/UL 12591) VAGINAL PATHOGENS DNA [id number] 00:00:00 Test Item Value Reference Range Interpretation Comments ANDIE SPECIES (test code = ) NEGATIVE G. VAGINALIS (test code = 62366) NEGATIVE T. VAGINALIS (test code = 77616) NEGATIVE VAGINAL PATHOGENS DNA [id number] 00:00:00 Test Item Value Reference Range Interpretation Comments ANDIE SPECIES (test code = ) NEGATIVE G. VAGINALIS (test code = 64250) NEGATIVE T. VAGINALIS (test code = 52635) NEGATIVE VAGINAL PATHOGENS DNA [id number] 00:00:00 Test Item Value Reference Range Interpretation Comments ANDIE SPECIES (test code = ) NEGATIVE G. VAGINALIS (test code = 13781) NEGATIVE T. VAGINALIS (test code = 78901) NEGATIVE VAGINAL PATHOGENS DNA [id number] 00:00:00 Test Item Value Reference Range Interpretation Comments ANDIE SPECIES (test code = ) NEGATIVE G. VAGINALIS (test code = 85798) NEGATIVE T. VAGINALIS (test code = 21702) NEGATIVE VAGINAL PATHOGENS DNA [id number] 00:00:00 Test Item Value Reference Range Interpretation Comments ANDIE SPECIES (test code = ) NEGATIVE G. VAGINALIS (test code = 67979) NEGATIVE T. VAGINALIS (test code = 93156) NEGATIVE VAGINAL PATHOGENS DNA [id number] 00:00:00 Test Item Value Reference Range Interpretation Comments ANDIE SPECIES (test code = ) NEGATIVE G. VAGINALIS (test code = 63430) NEGATIVE T. VAGINALIS (test code = 56913) NEGATIVE VAGINAL PATHOGENS DNA [id number] 00:00:00 Test Item Value Reference Range Interpretation Comments ANDIE SPECIES (test code = 64826) NEGATIVE G. VAGINALIS (test code = 45855) NEGATIVE T. VAGINALIS (test code = 51685) NEGATIVE VAGINAL PATHOGENS DNA [id number] 00:00:00 Test Item Value Reference Range Interpretation Comments ANDIE SPECIES (test code = 75415) NEGATIVE G. VAGINALIS (test code = 17698) NEGATIVE T. VAGINALIS (test code = 58567) NEGATIVE VAGINAL PATHOGENS DNA [id number] 00:00:00 Test Item Value Reference Range Interpretation Comments ANDIE SPECIES (test code = 87535) NEGATIVE G. VAGINALIS (test code = 15123) NEGATIVE T. VAGINALIS (test code = 67281) NEGATIVE VAGINAL PATHOGENS DNA [id number] 00:00:00 Test Item Value Reference Range Interpretation Comments ANDIE SPECIES (test code = 55551) NEGATIVE G. VAGINALIS (test code = 77456) NEGATIVE T. VAGINALIS (test code = 55965) NEGATIVE VAGINAL PATHOGENS DNA [id number] 00:00:00 Test Item Value Reference Range Interpretation Comments ANDIE SPECIES (test code = 81978) NEGATIVE G. VAGINALIS (test code = 78623) NEGATIVE T. VAGINALIS (test code = 51266) NEGATIVE VAGINAL PATHOGENS DNA [id number] 00:00:00 Test Item Value Reference Range Interpretation Comments ANDIE SPECIES (test code = 86867) NEGATIVE G. VAGINALIS (test code = 09364) NEGATIVE T. VAGINALIS (test code = 33170) NEGATIVE VAGINAL PATHOGENS DNA [id number] 00:00:00 Test Item Value Reference Range Interpretation Comments ANDIE SPECIES (test code = ) NEGATIVE G. VAGINALIS (test code = 22530) NEGATIVE T. VAGINALIS (test code = 32698) NEGATIVE VAGINAL PATHOGENS DNA [id number] 00:00:00 Test Item Value Reference Range Interpretation Comments ANDIE SPECIES (test code = ) NEGATIVE G. VAGINALIS (test code = 75505) NEGATIVE T. VAGINALIS (test code = 74702) NEGATIVE VAGINAL PATHOGENS DNA [id number] 00:00:00 Test Item Value Reference Range Interpretation Comments ANDIE SPECIES (test code = 85125) NEGATIVE G. VAGINALIS (test code = 25623) NEGATIVE T. VAGINALIS (test code = 03703) NEGATIVE VAGINAL PATHOGENS DNA [id number] 00:00:00 Test Item Value Reference Range Interpretation Comments ANDIE SPECIES (test code = 31295) NEGATIVE G. VAGINALIS (test code = 78713) NEGATIVE T. VAGINALIS (test code = 48248) NEGATIVE VAGINAL PATHOGENS DNA [id number] 00:00:00 Test Item Value Reference Range Interpretation Comments ANDIE SPECIES (test code = 29557) NEGATIVE G. VAGINALIS (test code = 71391) NEGATIVE T. VAGINALIS (test code = 98876) NEGATIVE VAGINAL PATHOGENS DNA [id number] 00:00:00 Test Item Value Reference Range Interpretation Comments ANDIE SPECIES (test code = ) NEGATIVE G. VAGINALIS (test code = 82503) NEGATIVE T. VAGINALIS (test code = 37870) NEGATIVE VAGINAL PATHOGENS DNA [id number] 00:00:00 Test Item Value Reference Range Interpretation Comments ANDIE SPECIES (test code = 95186) NEGATIVE G. VAGINALIS (test code = 98827) NEGATIVE T. VAGINALIS (test code = 64960) NEGATIVE VAGINAL PATHOGENS DNA [id number] 00:00:00 Test Item Value Reference Range Interpretation Comments ANDIE SPECIES (test code = ) NEGATIVE G. VAGINALIS (test code = 81454) NEGATIVE T. VAGINALIS (test code = 61977) NEGATIVE VAGINAL PATHOGENS DNA [id number] 00:00:00 Test Item Value Reference Range Interpretation Comments ANDIE SPECIES (test code = ) NEGATIVE G. VAGINALIS (test code = 76719) NEGATIVE T. VAGINALIS (test code = 29470) NEGATIVE HEMOGLOBIN [id number] 00:00:00 Test Item Value Reference Range Interpretation Comments HEMOGLOBIN A1c (test code = 65429) 11.4 % HEMOGLOBIN [id number] 00:00:00 Test Item Value Reference Range Interpretation Comments HEMOGLOBIN A1c (test code = 28187) 11.4 % HEMOGLOBIN [id number] 00:00:00 Test Item Value Reference Range Interpretation Comments HEMOGLOBIN A1c (test code = 05645) 11.4 % LIPID [id number] 00:00:00 Test Item Value Reference Range Interpretation Comments CHOLESTEROL (test code = 2210) 162 MG/DL TRIGLYCERIDES (test code = 2232) 387 MG/DL HDL CHOLESTEROL (test code = 2220) 30 MG/DL CALC LDL CHOL (test code = 2237) 80 MG/DL RISK RATIO LDL/HDL (test code = 2.67 RATIO 2238) LIPID [id number] 00:00:00 Test Item Value Reference Range Interpretation Comments CHOLESTEROL (test code = 2210) 162 MG/DL TRIGLYCERIDES (test code = 2232) 387 MG/DL HDL CHOLESTEROL (test code = 2220) 30 MG/DL CALC LDL CHOL (test code = 2237) 80 MG/DL RISK RATIO LDL/HDL (test code = 2.67 RATIO 2238) COMPREHENSIVE METABOLIC [id number] 00:00:00 Test Item Value Reference Range Interpretation Comments GLUCOSE (test code = 2217) 236 MG/DL BUN (test code = 2208) 14 MG/DL CREATININE (test code = 2214) 0.71 MG/DL eGFR AMER. (test code 122 ML/MIN/1.73 = 15774) eGFR NON- AMER. (test 105 ML/MIN/1.73 code = 44119) CALC BUN/CREAT (test code = 20 RATIO [...] code = 2219) 69 U/L COMPREHENSIVE METABOLIC [id number] 00:00:00 Test Item Value Reference Range Interpretation Comments GLUCOSE (test code = 2217) 236 MG/DL BUN (test code = 2208) 14 MG/DL CREATININE (test code = 2214) 0.71 MG/DL eGFR AMER. (test code 122 ML/MIN/1.73 = 85798) eGFR NON- AMER. (test 105 ML/MIN/1.73 code = 65497) CALC BUN/CREAT (test code = 20 RATIO 2235) SODIUM (test code = 2231) 138 MEQ/L POTASSIUM (test code = 2228) 4.3 MEQ/L CHLORIDE (test code = 2215) 103 MEQ/L CARBON DIOXIDE (test code = 19 MEQ/L 2206) CALCIUM (test code = 2209) [...] (test code = 2219) 69 U/L HEMOGLOBIN [id number] 00:00:00 Test Item Value Reference Range Interpretation Comments HEMOGLOBIN A1c (test code = 15894) 11.4 % HEMOGLOBIN [id number] 00:00:00 Test Item Value Reference Range Interpretation Comments HEMOGLOBIN A1c (test code = 06988) 11.4 % HEMOGLOBIN [id number] 00:00:00 Test Item Value Reference Range Interpretation Comments HEMOGLOBIN A1c (test code = 44623) 11.4 % LIPID [id number] 00:00:00 Test Item Value Reference Range Interpretation Comments CHOLESTEROL (test code = 2210) 162 MG/DL TRIGLYCERIDES (test code = 2232) 387 MG/DL HDL CHOLESTEROL (test code = 2220) 30 MG/DL CALC LDL CHOL (test code = 2237) 80 MG/DL RISK RATIO LDL/HDL (test code = 2.67 RATIO 2238) LIPID [id number] 00:00:00 Test Item Value Reference Range Interpretation Comments CHOLESTEROL (test code = 2210) 162 MG/DL TRIGLYCERIDES (test code = 2232) 387 MG/DL HDL CHOLESTEROL (test code = 2220) 30 MG/DL CALC LDL CHOL (test code = 2237) 80 MG/DL RISK RATIO LDL/HDL (test code = 2.67 RATIO 2238) COMPREHENSIVE METABOLIC [id number] 00:00:00 Test Item Value Reference Range Interpretation Comments GLUCOSE (test code = 2217) 236 MG/DL BUN (test code = 2208) 14 MG/DL CREATININE (test code = 2214) 0.71 MG/DL eGFR AMER. (test code 122 ML/MIN/1.73 = 75678) eGFR NON- AMER. (test 105 ML/MIN/1.73 code = 13189) CALC BUN/CREAT (test code = 20 RATIO [...] = 0.4 MG/DL 2207) ALKALINE PHOSPHATASE (test 55 U/L code = 2204) AST (test code = 2218) 38 U/L ALT (test code = 2219) 69 U/L COMPREHENSIVE METABOLIC [id number] 00:00:00 Test Item Value Reference Range Interpretation Comments GLUCOSE (test code = 2217) 236 MG/DL BUN (test code = 2208) 14 MG/DL CREATININE (test code = 2214) 0.71 MG/DL eGFR AMER. (test code 122 ML/MIN/1.73 = 21996) eGFR NON- AMER. (test 105 ML/MIN/1.73 code = 91006) CALC BUN/CREAT (test code = 20 RATIO [...] = 0.4 MG/DL 2207) ALKALINE PHOSPHATASE (test 55 U/L code = 2204) AST (test code = 2218) 38 U/L ALT (test code = 2219) 69 U/L HEMOGLOBIN [id number] 00:00:00 Test Item Value Reference Range Interpretation Comments HEMOGLOBIN A1c (test code = 05580) 11.4 % HEMOGLOBIN [id number] 00:00:00 Test Item Value Reference Range Interpretation Comments HEMOGLOBIN A1c (test code = 17200) 11.4 % HEMOGLOBIN [id number] 00:00:00 Test Item Value Reference Range Interpretation Comments HEMOGLOBIN A1c (test code = 77414) 11.4 % LIPID [id number] 00:00:00 Test Item Value Reference Range Interpretation Comments CHOLESTEROL (test code = 2210) 162 MG/DL TRIGLYCERIDES (test code = 2232) 387 MG/DL HDL CHOLESTEROL (test code = 2220) 30 MG/DL CALC LDL CHOL (test code = 2237) 80 MG/DL RISK RATIO LDL/HDL (test code = 2.67 RATIO 2238) LIPID [id number] 00:00:00 Test Item Value Reference Range Interpretation Comments CHOLESTEROL (test code = 2210) 162 MG/DL TRIGLYCERIDES (test code = 2232) 387 MG/DL HDL CHOLESTEROL (test code = 2220) 30 MG/DL CALC LDL CHOL (test code = 2237) 80 MG/DL RISK RATIO LDL/HDL (test code = 2.67 RATIO 2238) COMPREHENSIVE METABOLIC [id number] 00:00:00 Test Item Value Reference Range Interpretation Comments GLUCOSE (test code = 2217) 236 MG/DL BUN (test code = 2208) 14 MG/DL CREATININE (test code = 2214) 0.71 MG/DL eGFR AMER. (test code 122 ML/MIN/1.73 = 11997) eGFR NON- AMER. (test 105 ML/MIN/1.73 code = 83945) CALC BUN/CREAT (test code = 20 RATIO [...] code = 2219) 69 U/L COMPREHENSIVE METABOLIC [id number] 00:00:00 Test Item Value Reference Range Interpretation Comments GLUCOSE (test code = 2217) 236 MG/DL BUN (test code = 2208) 14 MG/DL CREATININE (test code = 2214) 0.71 MG/DL eGFR AMER. (test code 122 ML/MIN/1.73 = 53525) eGFR NON- AMER. (test 105 ML/MIN/1.73 code = 44543) CALC BUN/CREAT (test code = 20 RATIO [...] (test code = 2219) 69 U/L HEMOGLOBIN [id number] 00:00:00 Test Item Value Reference Range Interpretation Comments HEMOGLOBIN A1c (test code = 68005) 11.4 % HEMOGLOBIN [id number] 00:00:00 Test Item Value Reference Range Interpretation Comments HEMOGLOBIN A1c (test code = 93374) 11.4 % HEMOGLOBIN [id number] 00:00:00 Test Item Value Reference Range Interpretation Comments HEMOGLOBIN A1c (test code = 89324) 11.4 % LIPID [id number] 00:00:00 Test Item Value Reference Range Interpretation Comments CHOLESTEROL (test code = 2210) 162 MG/DL TRIGLYCERIDES (test code = 2232) 387 MG/DL HDL CHOLESTEROL (test code = 2220) 30 MG/DL CALC LDL CHOL (test code = 2237) 80 MG/DL RISK RATIO LDL/HDL (test code = 2.67 RATIO 2238) LIPID [id number] 00:00:00 Test Item Value Reference Range Interpretation Comments CHOLESTEROL (test code = 2210) 162 MG/DL TRIGLYCERIDES (test code = 2232) 387 MG/DL HDL CHOLESTEROL (test code = 2220) 30 MG/DL CALC LDL CHOL (test code = 2237) 80 MG/DL RISK RATIO LDL/HDL (test code = 2.67 RATIO 2238) COMPREHENSIVE METABOLIC [id number] 00:00:00 Test Item Value Reference Range Interpretation Comments GLUCOSE (test code = 2217) 236 MG/DL BUN (test code = 2208) 14 MG/DL CREATININE (test code = 2214) 0.71 MG/DL eGFR AMER. (test code 122 ML/MIN/1.73 = 91227) eGFR NON- AMER. (test 105 ML/MIN/1.73 code = 09283) CALC BUN/CREAT (test code = 20 RATIO [...] code = 2219) 69 U/L COMPREHENSIVE METABOLIC [id number] 00:00:00 Test Item Value Reference Range Interpretation Comments GLUCOSE (test code = 2217) 236 MG/DL BUN (test code = 2208) 14 MG/DL CREATININE (test code = 2214) 0.71 MG/DL eGFR AMER. (test code 122 ML/MIN/1.73 = 69243) eGFR NON- AMER. (test 105 ML/MIN/1.73 code = 41027) CALC BUN/CREAT (test code = 20 RATIO [...] (test code = 2219) 69 U/L HEMOGLOBIN [id number] 00:00:00 Test Item Value Reference Range Interpretation Comments HEMOGLOBIN A1c (test code = 25561) 11.4 % HEMOGLOBIN [id number] 00:00:00 Test Item Value Reference Range Interpretation Comments HEMOGLOBIN A1c (test code = 28373) 11.4 % HEMOGLOBIN [id number] 00:00:00 Test Item Value Reference Range Interpretation Comments HEMOGLOBIN A1c (test code = 34718) 11.4 % LIPID [id number] 00:00:00 Test Item Value Reference Range Interpretation Comments CHOLESTEROL (test code = 2210) 162 MG/DL TRIGLYCERIDES (test code = 2232) 387 MG/DL HDL CHOLESTEROL (test code = 2220) 30 MG/DL CALC LDL CHOL (test code = 2237) 80 MG/DL RISK RATIO LDL/HDL (test code = 2.67 RATIO 2238) LIPID [id number] 00:00:00 Test Item Value Reference Range Interpretation Comments CHOLESTEROL (test code = 2210) 162 MG/DL TRIGLYCERIDES (test code = 2232) 387 MG/DL HDL CHOLESTEROL (test code = 2220) 30 MG/DL CALC LDL CHOL (test code = 2237) 80 MG/DL RISK RATIO LDL/HDL (test code = 2.67 RATIO 2238) COMPREHENSIVE METABOLIC [id number] 00:00:00 Test Item Value Reference Range Interpretation Comments GLUCOSE (test code = 2217) 236 MG/DL BUN (test code = 2208) 14 MG/DL CREATININE (test code = 2214) 0.71 MG/DL eGFR AMER. (test code 122 ML/MIN/1.73 = 58720) eGFR NON- AMER. (test 105 ML/MIN/1.73 code = 46752) CALC BUN/CREAT (test code = 20 RATIO 2235) SODIUM (test code = 2231) 138 MEQ/L POTASSIUM (test code = 2228) 4.3 MEQ/L CHLORIDE (test code = 2215) 103 MEQ/L CARBON DIOXIDE (test code = 19 MEQ/L 2206) CALCIUM (test code = 2209) 10.0 MG/DL PROTEIN, TOTAL (test code = 7.4 G/DL 2228) ALBUMIN (test code = 2201) 4.5 G/DL CALC GLOBULIN (test code = 2.9 G/DL 2240) CALC A/G RATIO (test code = 1.6 RATIO 2234) BILIRUBIN, TOTAL (test code = 0.4 MG/DL 2206) ALKALINE PHOSPHATASE (test 55 U/L code = 220) AST (test code = 2218) 38 U/L ALT (test code = 2219) 69 U/L COMPREHENSIVE METABOLIC [id number] 00:00:00 Test Item Value Reference Range Interpretation Comments GLUCOSE (test code = 2217) 236 MG/DL BUN (test code = 2208) 14 MG/DL CREATININE (test code = 2214) 0.71 MG/DL eGFR AMER. (test code 122 ML/MIN/1.73 = 13473) eGFR NON- AMER. (test 105 ML/MIN/1.73 code = 46834) CALC BUN/CREAT (test code = 20 RATIO [...] (test code = 2219) 69 U/L HEMOGLOBIN [id number] 00:00:00 Test Item Value Reference Range Interpretation Comments HEMOGLOBIN A1c (test code = 90079) 11.4 % HEMOGLOBIN [id number] 00:00:00 Test Item Value Reference Range Interpretation Comments HEMOGLOBIN A1c (test code = 13469) 11.4 % HEMOGLOBIN [id number] 00:00:00 Test Item Value Reference Range Interpretation Comments HEMOGLOBIN A1c (test code = 13403) 11.4 % LIPID [id number] 00:00:00 Test Item Value Reference Range Interpretation Comments CHOLESTEROL (test code = 2210) 162 MG/DL TRIGLYCERIDES (test code = 2232) 387 MG/DL HDL CHOLESTEROL (test code = 2220) 30 MG/DL CALC LDL CHOL (test code = 2237) 80 MG/DL RISK RATIO LDL/HDL (test code = 2.67 RATIO 2238) LIPID [id number] 00:00:00 Test Item Value Reference Range Interpretation Comments CHOLESTEROL (test code = 2210) 162 MG/DL TRIGLYCERIDES (test code = 2232) 387 MG/DL HDL CHOLESTEROL (test code = 2220) 30 MG/DL CALC LDL CHOL (test code = 2237) 80 MG/DL RISK RATIO LDL/HDL (test code = 2.67 RATIO 2238) COMPREHENSIVE METABOLIC [id number] 00:00:00 Test Item Value Reference Range Interpretation Comments GLUCOSE (test code = 2217) 236 MG/DL BUN (test code = 2208) 14 MG/DL CREATININE (test code = 2214) 0.71 MG/DL eGFR AMER. (test code 122 ML/MIN/1.73 = 87733) eGFR NON- AMER. (test 105 ML/MIN/1.73 code = 75180) CALC BUN/CREAT (test code = 20 RATIO 2235) SODIUM (test code = 2231) 138 MEQ/L POTASSIUM (test code = 2228) 4.3 MEQ/L CHLORIDE (test code = 2215) 103 MEQ/L CARBON DIOXIDE (test code = 19 MEQ/L 6) CALCIUM (test code = 2209) 10.0 MG/DL PROTEIN, TOTAL (test code = 7.4 G/DL 2228) ALBUMIN (test code = 2201) 4.5 G/DL CALC GLOBULIN (test code = 2.9 G/DL 2240) CALC A/G RATIO (test code = 1.6 RATIO 2234) BILIRUBIN, TOTAL (test code = 0.4 MG/DL 2207) ALKALINE PHOSPHATASE (test 55 U/L code = 2204) AST (test code = 2218) 38 U/L ALT (test code = 2219) 69 U/L COMPREHENSIVE METABOLIC [id number] 00:00:00 Test Item Value Reference Range Interpretation Comments GLUCOSE (test code = 2217) 236 MG/DL BUN (test code = 2208) 14 MG/DL CREATININE (test code = 2214) 0.71 MG/DL eGFR AMER. (test code 122 ML/MIN/1.73 = 93831) eGFR NON- AMER. (test 105 ML/MIN/1.73 code = 99534) CALC BUN/CREAT (test code = 20 RATIO 2235) SODIUM (test code = 2231) 138 MEQ/L POTASSIUM (test code = 2228) 4.3 MEQ/L CHLORIDE (test code = 2215) 103 MEQ/L CARBON DIOXIDE (test code = 19 MEQ/L 2206) CALCIUM (test code = 2209) 10.0 MG/DL PROTEIN, TOTAL (test code = 7.4 G/DL 2228) ALBUMIN (test code = 2201) 4.5 G/DL CALC GLOBULIN (test code = 2.9 G/DL 2240) CALC A/G RATIO (test code = 1.6 RATIO 2234) BILIRUBIN, TOTAL (test code = 0.4 MG/DL 2207) ALKALINE PHOSPHATASE (test 55 U/L code = 2204) AST (test code = 2218) 38 U/L ALT (test code = 2219) 69 U/L HEMOGLOBIN [id number] 00:00:00 Test Item Value Reference Range Interpretation Comments HEMOGLOBIN A1c (test code = 38958) 11.4 % HEMOGLOBIN [id number] 00:00:00 Test Item Value Reference Range Interpretation Comments HEMOGLOBIN A1c (test code = 03017) 11.4 % HEMOGLOBIN [id number] 00:00:00 Test Item Value Reference Range Interpretation Comments HEMOGLOBIN A1c (test code = 35322) 11.4 % LIPID [id number] 00:00:00 Test Item Value Reference Range Interpretation Comments CHOLESTEROL (test code = 2210) 162 MG/DL TRIGLYCERIDES (test code = 2232) 387 MG/DL HDL CHOLESTEROL (test code = 2220) 30 MG/DL CALC LDL CHOL (test code = 2237) 80 MG/DL RISK RATIO LDL/HDL (test code = 2.67 RATIO 2238) LIPID [id number] 00:00:00 Test Item Value Reference Range Interpretation Comments CHOLESTEROL (test code = 2210) 162 MG/DL TRIGLYCERIDES (test code = 2232) 387 MG/DL HDL CHOLESTEROL (test code = 2220) 30 MG/DL CALC LDL CHOL (test code = 2237) 80 MG/DL RISK RATIO LDL/HDL (test code = 2.67 RATIO 2238) HEMOGLOBIN [id number] 00:00:00 Test Item Value Reference Range Interpretation Comments HEMOGLOBIN A1c (test code = 02979) 11.4 % COMPREHENSIVE METABOLIC [id number] 00:00:00 Test Item Value Reference Range Interpretation Comments GLUCOSE (test code = 2217) 236 MG/DL BUN (test code = 2208) 14 MG/DL CREATININE (test code = 2214) 0.71 MG/DL eGFR AMER. (test code 122 ML/MIN/1.73 = 26562) eGFR NON- AMER. (test 105 ML/MIN/1.73 code = 28003) CALC BUN/CREAT (test code = 20 RATIO [...] A/G RATIO (test code = 1.6 RATIO 223) BILIRUBIN, TOTAL (test code = 0.4 MG/DL 2206) ALKALINE PHOSPHATASE (test 55 U/L code = 2204) AST (test code = 2218) 38 U/L ALT (test code = 2219) 69 U/L COMPREHENSIVE METABOLIC [id number] 00:00:00 Test Item Value Reference Range Interpretation Comments GLUCOSE (test code = 2217) 236 MG/DL BUN (test code = 2208) 14 MG/DL CREATININE (test code = 2214) 0.71 MG/DL eGFR AMER. (test code 122 ML/MIN/1.73 = 58465) eGFR NON- AMER. (test 105 ML/MIN/1.73 code = 39050) CALC BUN/CREAT (test code = 20 RATIO 2235) SODIUM (test code = 2231) 138 MEQ/L POTASSIUM (test code = 2228) 4.3 MEQ/L CHLORIDE (test code = 2215) 103 MEQ/L CARBON DIOXIDE (test code = 19 MEQ/L 2205) CALCIUM (test code = 2209) 10.0 MG/DL PROTEIN, TOTAL (test code = 7.4 G/DL 2228) ALBUMIN (test code = 220) 4.5 G/DL CALC GLOBULIN (test code = 2.9 G/DL 2239) CALC A/G RATIO (test code = 1.6 RATIO 2233) BILIRUBIN, TOTAL (test code = 0.4 MG/DL 2206) ALKALINE PHOSPHATASE (test 55 U/L code = 2204) AST (test code = 2218) 38 U/L ALT (test code = 2219) 69 U/L HEMOGLOBIN [id number] 00:00:00 Test Item Value Reference Range Interpretation Comments HEMOGLOBIN A1c (test code = 06317) 11.4 % LIPID [id number] 00:00:00 Test Item Value Reference Range Interpretation Comments CHOLESTEROL (test code = 2210) 162 MG/DL TRIGLYCERIDES (test code = 2232) 387 MG/DL HDL CHOLESTEROL (test code = 2220) 30 MG/DL CALC LDL CHOL (test code = 2237) 80 MG/DL RISK RATIO LDL/HDL (test code = 2.67 RATIO 2238) COMPREHENSIVE METABOLIC [id number] 00:00:00 Test Item Value Reference Range Interpretation Comments GLUCOSE (test code = 2217) 236 MG/DL BUN (test code = 2208) 14 MG/DL CREATININE (test code = 2214) 0.71 MG/DL eGFR AMER. (test code 122 ML/MIN/1.73 = 51538) eGFR NON- AMER. (test 105 ML/MIN/1.73 code = 12067) CALC BUN/CREAT (test code = 20 RATIO [...] (test code = 2219) 69 U/L HEMOGLOBIN [id number] 00:00:00 Test Item Value Reference Range Interpretation Comments HEMOGLOBIN A1c (test code = 69257) 11.4 % HEMOGLOBIN [id number] 00:00:00 Test Item Value Reference Range Interpretation Comments HEMOGLOBIN A1c (test code = 12326) 11.4 % HEMOGLOBIN [id number] 00:00:00 Test Item Value Reference Range Interpretation Comments HEMOGLOBIN A1c (test code = 75955) 11.4 % LIPID [id number] 00:00:00 Test Item Value Reference Range Interpretation Comments CHOLESTEROL (test code = 2210) 162 MG/DL TRIGLYCERIDES (test code = 2232) 387 MG/DL HDL CHOLESTEROL (test code = 2220) 30 MG/DL CALC LDL CHOL (test code = 2237) 80 MG/DL RISK RATIO LDL/HDL (test code = 2.67 RATIO 2238) LIPID [id number] 00:00:00 Test Item Value Reference Range Interpretation Comments CHOLESTEROL (test code = 2210) 162 MG/DL TRIGLYCERIDES (test code = 2232) 387 MG/DL HDL CHOLESTEROL (test code = 2220) 30 MG/DL CALC LDL CHOL (test code = 2237) 80 MG/DL RISK RATIO LDL/HDL (test code = 2.67 RATIO 2238) COMPREHENSIVE METABOLIC [id number] 00:00:00 Test Item Value Reference Range Interpretation Comments GLUCOSE (test code = 2217) 236 MG/DL BUN (test code = 2208) 14 MG/DL CREATININE (test code = 2214) 0.71 MG/DL eGFR AMER. (test code 122 ML/MIN/1.73 = 37807) eGFR NON- AMER. (test 105 ML/MIN/1.73 code = 36286) CALC BUN/CREAT (test code = 20 RATIO [...] code = 2219) 69 U/L COMPREHENSIVE METABOLIC [id number] 00:00:00 Test Item Value Reference Range Interpretation Comments GLUCOSE (test code = 2217) 236 MG/DL BUN (test code = 2208) 14 MG/DL CREATININE (test code = 2214) 0.71 MG/DL eGFR AMER. (test code 122 ML/MIN/1.73 = 60065) eGFR NON- AMER. (test 105 ML/MIN/1.73 code = 48574) CALC BUN/CREAT (test code = 20 RATIO 2235) SODIUM (test code = 2231) 138 MEQ/L POTASSIUM (test code = 2228) 4.3 MEQ/L CHLORIDE (test code = 2215) 103 MEQ/L CARBON DIOXIDE (test code = 19 MEQ/L 2206) CALCIUM (test code = 2209) 10.0 MG/DL PROTEIN, TOTAL (test code = 7.4 G/DL 2228) ALBUMIN (test code = 2201) 4.5 G/DL CALC GLOBULIN (test code = 2.9 G/DL 2240) CALC A/G RATIO (test code = 1.6 RATIO 2234) BILIRUBIN, TOTAL (test code = 0.4 MG/DL 2207) ALKALINE PHOSPHATASE (test 55 U/L code = 2204) AST (test code = 2218) 38 U/L ALT (test code = 2219) 69 U/L HEMOGLOBIN [id number] 00:00:00 Test Item Value Reference Range Interpretation Comments HEMOGLOBIN A1c (test code = 61163) 11.4 % HEMOGLOBIN [id number] 00:00:00 Test Item Value Reference Range Interpretation Comments HEMOGLOBIN A1c (test code = 74196) 11.4 % HEMOGLOBIN [id number] 00:00:00 Test Item Value Reference Range Interpretation Comments HEMOGLOBIN A1c (test code = 93046) 11.4 % LIPID [id number] 00:00:00 Test Item Value Reference Range Interpretation Comments CHOLESTEROL (test code = 2210) 162 MG/DL TRIGLYCERIDES (test code = 2232) 387 MG/DL HDL CHOLESTEROL (test code = 2220) 30 MG/DL CALC LDL CHOL (test code = 2237) 80 MG/DL RISK RATIO LDL/HDL (test code = 2.67 RATIO 2238) LIPID [id number] 00:00:00 Test Item Value Reference Range Interpretation Comments CHOLESTEROL (test code = 2210) 162 MG/DL TRIGLYCERIDES (test code = 2232) 387 MG/DL HDL CHOLESTEROL (test code = 2220) 30 MG/DL CALC LDL CHOL (test code = 2237) 80 MG/DL RISK RATIO LDL/HDL (test code = 2.67 RATIO 2238) COMPREHENSIVE METABOLIC [id number] 00:00:00 Test Item Value Reference Range Interpretation Comments GLUCOSE (test code = 2217) 236 MG/DL BUN (test code = 2208) 14 MG/DL CREATININE (test code = 2214) 0.71 MG/DL eGFR AMER. (test code 122 ML/MIN/1.73 = 91970) eGFR NON- AMER. (test 105 ML/MIN/1.73 code = 06451) CALC BUN/CREAT (test code = 20 RATIO [...] code = 2219) 69 U/L COMPREHENSIVE METABOLIC [id number] 00:00:00 Test Item Value Reference Range Interpretation Comments GLUCOSE (test code = 2217) 236 MG/DL BUN (test code = 2208) 14 MG/DL CREATININE (test code = 2214) 0.71 MG/DL eGFR AMER. (test code 122 ML/MIN/1.73 = 45727) eGFR NON- AMER. (test 105 ML/MIN/1.73 code = 49135) CALC BUN/CREAT (test code = 20 RATIO [...] (test code = 2219) 69 U/L HEMOGLOBIN [id number] 00:00:00 Test Item Value Reference Range Interpretation Comments HEMOGLOBIN A1c (test code = 96582) 11.4 % HEMOGLOBIN [id number] 00:00:00 Test Item Value Reference Range Interpretation Comments HEMOGLOBIN A1c (test code = 31067) 11.4 % HEMOGLOBIN [id number] 00:00:00 Test Item Value Reference Range Interpretation Comments HEMOGLOBIN A1c (test code = 84601) 11.4 % LIPID [id number] 00:00:00 Test Item Value Reference Range Interpretation Comments CHOLESTEROL (test code = 2210) 162 MG/DL TRIGLYCERIDES (test code = 2232) 387 MG/DL HDL CHOLESTEROL (test code = 2220) 30 MG/DL CALC LDL CHOL (test code = 2237) 80 MG/DL RISK RATIO LDL/HDL (test code = 2.67 RATIO 2238) LIPID [id number] 00:00:00 Test Item Value Reference Range Interpretation Comments CHOLESTEROL (test code = 2210) 162 MG/DL TRIGLYCERIDES (test code = 2232) 387 MG/DL HDL CHOLESTEROL (test code = 2220) 30 MG/DL CALC LDL CHOL (test code = 2237) 80 MG/DL RISK RATIO LDL/HDL (test code = 2.67 RATIO 2238) COMPREHENSIVE METABOLIC [id number] 00:00:00 Test Item Value Reference Range Interpretation Comments GLUCOSE (test code = 2217) 236 MG/DL BUN (test code = 2208) 14 MG/DL CREATININE (test code = 2214) 0.71 MG/DL eGFR AMER. (test code 122 ML/MIN/1.73 = 69993) eGFR NON- AMER. (test 105 ML/MIN/1.73 code = 36625) CALC BUN/CREAT (test code = 20 RATIO [...] code = 2219) 69 U/L COMPREHENSIVE METABOLIC [id number] 00:00:00 Test Item Value Reference Range Interpretation Comments GLUCOSE (test code = 2217) 236 MG/DL BUN (test code = 2208) 14 MG/DL CREATININE (test code = 2214) 0.71 MG/DL eGFR AMER. (test code 122 ML/MIN/1.73 = 96252) eGFR NON- AMER. (test 105 ML/MIN/1.73 code = 80403) CALC BUN/CREAT (test code = 20 RATIO [...] U/L - CT UP EXTREM W/O CONT [id number] 08:37:00 [facility] 1980 Sex: F PatientName: MARGE FRANCO Unit No: [id number] EXAMS: CPT CODE: [id number] [place] EXTREM W/[place] [address] [place] SCAN LEFT WRIST WITH RECONSTRUCTION DIAGNOSIS: [...] with ACR practice standards and adherence to [employer]'s recommendations. INDICATION: LEFT WRIST SPRAIN, POSSIBLE SCAPHOID FRACTURE COMPARISON: None. COMMENT: Findings are as described above. at 0837 Reported and signed by: America Schuler MD CC: Bebeto Quiroga MDTechnologist: KAVEH WYMAN MRI CTDI: DLP: Trnscrpt: 08/11/2020 (0837) oNelGVG [facility] NAME: MARGE FRANCO [address] [place] [address] PHYS: Bebeto Valiente MD : 1980 AGE: 40 SEX: F [place] [address] LOC: Y.RAD PHONE #: [phone] EXAM DATE: 08/08/2020 STATUS: DEP CLI FAX #: [phone] RAD #: D/C DT PAGE 1 Signed Report Patient Name: MARGE FRANCO Unit No: [id number] EXAMS: CPT CODE: [id number] CT [place] EXTREM W/[place] [address] (Continued) Orig Print D/T: S: 08/11/2020 (0840) [facility] NAME: MARGE FRANCO [address] [place] [address] PHYS: Bebeto Valiente MD : 1980 AGE: 40 SEX: F [place] [address] LOC: Y.RAD PHONE #: [phone] EXAM DATE: 08/08/2020 STATUS: DEP CLI FAX #: [phone] RAD #: D/C DT PAGE 2 Signed ReportCULTURE, [id number] 00:00:00 Test Item Value Reference Range Interpretation Comments CULTURE, URINE (test SPECIMEN NUMBER: code = 76209) [id number] CULTURE, [id number] 00:00:00 Test Item Value Reference Range Interpretation Comments CULTURE, URINE (test SPECIMEN NUMBER: code = 58118) [id number] CULTURE, [id number] 00:00:00 Test Item Value Reference Range Interpretation Comments CULTURE, URINE (test SPECIMEN NUMBER: code = 49149) [id number] CULTURE, [id number] 00:00:00 Test Item Value Reference Range Interpretation Comments CULTURE, URINE (test SPECIMEN NUMBER: code = 81318) [id number] CULTURE, [id number] 00:00:00 Test Item Value Reference Range Interpretation Comments CULTURE, URINE (test SPECIMEN NUMBER: code = 19188) [id number] CULTURE, [id number] 00:00:00 Test Item Value Reference Range Interpretation Comments CULTURE, URINE (test SPECIMEN NUMBER: code = 45297) [id number] CULTURE, [id number] 00:00:00 Test Item Value Reference Range Interpretation Comments CULTURE, URINE (test SPECIMEN NUMBER: code = 06800) [id number] CULTURE, [id number] 00:00:00 Test Item Value Reference Range Interpretation Comments CULTURE, URINE (test SPECIMEN NUMBER: code = 10361) [id number] CULTURE, [id number] 00:00:00 Test Item Value Reference Range Interpretation Comments CULTURE, URINE (test SPECIMEN NUMBER: code = 65988) [id number] CULTURE, [id number] 00:00:00 Test Item Value Reference Range Interpretation Comments CULTURE, URINE (test SPECIMEN NUMBER: code = 30737) [id number] CULTURE, [id number] 00:00:00 Test Item Value Reference Range Interpretation Comments CULTURE, URINE (test SPECIMEN NUMBER: code = 16182) [id number] CULTURE, [id number] 00:00:00 Test Item Value Reference Range Interpretation Comments CULTURE, URINE (test SPECIMEN NUMBER: code = 70664) [id number] CULTURE, [id number] 00:00:00 Test Item Value Reference Range Interpretation Comments CULTURE, URINE (test SPECIMEN NUMBER: code = 51018) [id number] CULTURE, [id number] 00:00:00 Test Item Value Reference Range Interpretation Comments CULTURE, URINE (test SPECIMEN NUMBER: code = 39144) [id number] CULTURE, [id number] 00:00:00 Test Item Value Reference Range Interpretation Comments CULTURE, URINE (test SPECIMEN NUMBER: code = 83803) [id number] CULTURE, [id number] 00:00:00 Test Item Value Reference Range Interpretation Comments CULTURE, URINE (test SPECIMEN NUMBER: code = 88892) [id number] CULTURE, [id number] 00:00:00 Test Item Value Reference Range Interpretation Comments CULTURE, URINE (test SPECIMEN NUMBER: code = 72966) [id number] CULTURE, [id number] 00:00:00 Test Item Value Reference Range Interpretation Comments CULTURE, URINE (test SPECIMEN NUMBER: code = 84415) [id number] CULTURE, [id number] 00:00:00 Test Item Value Reference Range Interpretation Comments CULTURE, URINE (test SPECIMEN NUMBER: code = 55437) [id number] CULTURE, [id number] 00:00:00 Test Item Value Reference Range Interpretation Comments CULTURE, URINE (test SPECIMEN NUMBER: code = 66533) [id number] CULTURE, [id number] 00:00:00 Test Item Value Reference Range Interpretation Comments CULTURE, URINE (test SPECIMEN NUMBER: code = 48634) [id number] VAGINAL PATHOGENS DNA [id number] 00:00:00 Test Item Value Reference Range Interpretation Comments ANDIE SPECIES (test code = 93934) NEGATIVE G. VAGINALIS (test code = 66398) NEGATIVE T. VAGINALIS (test code = 62617) NEGATIVE VAGINAL PATHOGENS DNA [id number] 00:00:00 Test Item Value Reference Range Interpretation Comments ANDIE SPECIES (test code = 28919) NEGATIVE G. VAGINALIS (test code = 78451) NEGATIVE T. VAGINALIS (test code = 49798) NEGATIVE VAGINAL PATHOGENS DNA [id number] 00:00:00 Test Item Value Reference Range Interpretation Comments ANDIE SPECIES (test code = 72200) NEGATIVE G. VAGINALIS (test code = 28594) NEGATIVE T. VAGINALIS (test code = 15373) NEGATIVE VAGINAL PATHOGENS DNA [id number] 00:00:00 Test Item Value Reference Range Interpretation Comments ANDIE SPECIES (test code = 95273) NEGATIVE G. VAGINALIS (test code = 66201) NEGATIVE T. VAGINALIS (test code = 75068) NEGATIVE VAGINAL PATHOGENS DNA [id number] 00:00:00 Test Item Value Reference Range Interpretation Comments ANDIE SPECIES (test code = 39652) NEGATIVE G. VAGINALIS (test code = 20034) NEGATIVE T. VAGINALIS (test code = 49872) NEGATIVE VAGINAL PATHOGENS DNA [id number] 00:00:00 Test Item Value Reference Range Interpretation Comments ANDIE SPECIES (test code = 07001) NEGATIVE G. VAGINALIS (test code = 52384) NEGATIVE T. VAGINALIS (test code = 83815) NEGATIVE VAGINAL PATHOGENS DNA [id number] 00:00:00 Test Item Value Reference Range Interpretation Comments ANDIE SPECIES (test code = 52877) NEGATIVE G. VAGINALIS (test code = 66700) NEGATIVE T. VAGINALIS (test code = 20905) NEGATIVE VAGINAL PATHOGENS DNA [id number] 00:00:00 Test Item Value Reference Range Interpretation Comments ANDIE SPECIES (test code = 50299) NEGATIVE G. VAGINALIS (test code = 00836) NEGATIVE T. VAGINALIS (test code = 40691) NEGATIVE VAGINAL PATHOGENS DNA [id number] 00:00:00 Test Item Value Reference Range Interpretation Comments ANDIE SPECIES (test code = 97371) NEGATIVE G. VAGINALIS (test code = 61391) NEGATIVE T. VAGINALIS (test code = 07217) NEGATIVE VAGINAL PATHOGENS DNA [id number] 00:00:00 Test Item Value Reference Range Interpretation Comments ANDIE SPECIES (test code = 76658) NEGATIVE G. VAGINALIS (test code = 35697) NEGATIVE T. VAGINALIS (test code = 96783) NEGATIVE VAGINAL PATHOGENS DNA [id number] 00:00:00 Test Item Value Reference Range Interpretation Comments ANDIE SPECIES (test code = 47639) NEGATIVE G. VAGINALIS (test code = 77400) NEGATIVE T. VAGINALIS (test code = 28173) NEGATIVE VAGINAL PATHOGENS DNA [id number] 00:00:00 Test Item Value Reference Range Interpretation Comments ANDIE SPECIES (test code = 14516) NEGATIVE G. VAGINALIS (test code = 46508) NEGATIVE T. VAGINALIS (test code = 33138) NEGATIVE VAGINAL PATHOGENS DNA [id number] 00:00:00 Test Item Value Reference Range Interpretation Comments ANDIE SPECIES (test code = 09920) NEGATIVE G. VAGINALIS (test code = 06166) NEGATIVE T. VAGINALIS (test code = 48773) NEGATIVE VAGINAL PATHOGENS DNA [id number] 00:00:00 Test Item Value Reference Range Interpretation Comments ANDIE SPECIES (test code = 22464) NEGATIVE G. VAGINALIS (test code = 67482) NEGATIVE T. VAGINALIS (test code = 97040) NEGATIVE VAGINAL PATHOGENS DNA [id number] 00:00:00 Test Item Value Reference Range Interpretation Comments ANDIE SPECIES (test code = 29033) NEGATIVE G. VAGINALIS (test code = 12036) NEGATIVE T. VAGINALIS (test code = 53456) NEGATIVE VAGINAL PATHOGENS DNA [id number] 00:00:00 Test Item Value Reference Range Interpretation Comments ANDIE SPECIES (test code = 98993) NEGATIVE G. VAGINALIS (test code = 02222) NEGATIVE T. VAGINALIS (test code = 52247) NEGATIVE VAGINAL PATHOGENS DNA [id number] 00:00:00 Test Item Value Reference Range Interpretation Comments ANDIE SPECIES (test code = 15361) NEGATIVE G. VAGINALIS (test code = 95006) NEGATIVE T. VAGINALIS (test code = 86223) NEGATIVE VAGINAL PATHOGENS DNA [id number] 00:00:00 Test Item Value Reference Range Interpretation Comments ANDIE SPECIES (test code = 22965) NEGATIVE G. VAGINALIS (test code = 07830) NEGATIVE T. VAGINALIS (test code = 06959) NEGATIVE VAGINAL PATHOGENS DNA [id number] 00:00:00 Test Item Value Reference Range Interpretation Comments ANDIE SPECIES (test code = 78428) NEGATIVE G. VAGINALIS (test code = 44545) NEGATIVE T. VAGINALIS (test code = 56769) NEGATIVE VAGINAL PATHOGENS DNA [id number] 00:00:00 Test Item Value Reference Range Interpretation Comments NADIE SPECIES (test code = 31982) NEGATIVE G. VAGINALIS (test code = 63431) NEGATIVE T. VAGINALIS (test code = 13590) NEGATIVE VAGINAL PATHOGENS DNA [id number] 00:00:00 Test Item Value Reference Range Interpretation Comments ANDIE SPECIES (test code = 77139) NEGATIVE G. VAGINALIS (test code = 16234) NEGATIVE T. VAGINALIS (test code = 30761) NEGATIVE - XR FOREARM 2 VIEWS [id number] 09:10:00 [facility] 1980 Sex: F PatientName: MARGE FRANCO Unit No: [id number] EXAMS: CPT CODE: [id number] [place] [address] [place] [address] Leftforearm and wrist 4 views COMMENT: There is no evidence for fracture or subluxation. No focal bony lesions are seen. at 0910 Reported and signed by: Prasad Marina MD CC: Rafy Ferguson MD Technologist: Marie Johnson(R) Transcribed D/ (0910) Renee [facility] NAME: MARGE FRANCO [address] [facility] PHYS: HAMST. - Rafy Ferguson : 1980 AGE: 40 SEX: F [place] [address] LOC: TEOFILO PHONE #: [phone] EXAM DATE: 08/02/2020 STATUS: DEP ER FAX#: [phone] RAD #: D/C DT PAGE 1 Signed Report Patient Name: MARGE FRANCO Unit No: [id number]: CPT CODE: [id number] XR FOREARM [address] [place] [id number] (Continued) Orig Print D/T: S: 08/04/2020 (0914) [facility] NAME: MARGE FRANCO [address] [facility] PHYS: HAMST.Rell SanjeevstephanieMarcelBoubacar : 1980 AGE: 40 SEX: F [place] [address] LOC: TEOFILO PHONE #: [phone] EXAM DATE: 08/02/2020 STATUS: DEP FAX #: [phone] RAD #: D/C DT PAGE 2 Signed ReportCULTURE, [id number] 00:00:00 Test Item Value Reference Range Interpretation Comments CULTURE, URINE (test SPECIMEN NUMBER: code = 08732) [id number] CULTURE, [id number] 00:00:00 Test Item Value Reference Range Interpretation Comments CULTURE, URINE (test SPECIMEN NUMBER: code = 67979) [id number] CULTURE, [id number] 00:00:00 Test Item Value Reference Range Interpretation Comments CULTURE, URINE (test SPECIMEN NUMBER: code = 16091) [id number] CULTURE, [id number] 00:00:00 Test Item Value Reference Range Interpretation Comments CULTURE, URINE (test SPECIMEN NUMBER: code = 12245) [id number] CULTURE, [id number] 00:00:00 Test Item Value Reference Range Interpretation Comments CULTURE, URINE (test SPECIMEN NUMBER: code = 64860) [id number] CULTURE, [id number] 00:00:00 Test Item Value Reference Range Interpretation Comments CULTURE, URINE (test SPECIMEN NUMBER: code = 98075) [id number] CULTURE, [id number] 00:00:00 Test Item Value Reference Range Interpretation Comments CULTURE, URINE (test SPECIMEN NUMBER: code = 79128) [id number] CULTURE, [id number] 00:00:00 Test Item Value Reference Range Interpretation Comments CULTURE, URINE (test SPECIMEN NUMBER: code = 24317) [id number] CULTURE, [id number] 00:00:00 Test Item Value Reference Range Interpretation Comments CULTURE, URINE (test SPECIMEN NUMBER: code = 24322) [id number] CULTURE, [id number] 00:00:00 Test Item Value Reference Range Interpretation Comments CULTURE, URINE (test SPECIMEN NUMBER: code = 81076) [id number] CULTURE, [id number] 00:00:00 Test Item Value Reference Range Interpretation Comments CULTURE, URINE (test SPECIMEN NUMBER: code = 17008) [id number] CULTURE, [id number] 00:00:00 Test Item Value Reference Range Interpretation Comments CULTURE, URINE (test SPECIMEN NUMBER: code = 96321) [id number] CULTURE, [id number] 00:00:00 Test Item Value Reference Range Interpretation Comments CULTURE, URINE (test SPECIMEN NUMBER: code = 04727) [id number] CULTURE, [id number] 00:00:00 Test Item Value Reference Range Interpretation Comments CULTURE, URINE (test SPECIMEN NUMBER: code = 01873) [id number] CULTURE, [id number] 00:00:00 Test Item Value Reference Range Interpretation Comments CULTURE, URINE (test SPECIMEN NUMBER: code = 61652) [id number] CULTURE, [id number] 00:00:00 Test Item Value Reference Range Interpretation Comments CULTURE, URINE (test SPECIMEN NUMBER: code = 31244) [id number] CULTURE, [id number] 00:00:00 Test Item Value Reference Range Interpretation Comments CULTURE, URINE (test SPECIMEN NUMBER: code = 66087) [id number] CULTURE, [id number] 00:00:00 Test Item Value Reference Range Interpretation Comments CULTURE, URINE (test SPECIMEN NUMBER: code = 47877) [id number] CULTURE, [id number] 00:00:00 Test Item Value Reference Range Interpretation Comments CULTURE, URINE (test SPECIMEN NUMBER: code = 21820) [id number] CULTURE, [id number] 00:00:00 Test Item Value Reference Range Interpretation Comments CULTURE, URINE (test SPECIMEN NUMBER: code = 85953) [id number] CULTURE, [id number] 00:00:00 Test Item Value Reference Range Interpretation Comments CULTURE, URINE (test SPECIMEN NUMBER: code = 80102) [id number] SARS-CoV-2 (COVID-19) by RT-PCR (HIGH RISK)2020-04-23 00:00:00 Test Item Value Reference Range Interpretation Comments SARS-CoV-2 INTERPRETATION Negative (test code = 13899) SOURCE (test code = 46489) Nasal_Swab_in_VTM__ UTM SARS-CoV-2 (COVID-19) by RT-PCR (HIGH RISK)2020-04-23 00:00:00 Test Item Value Reference Range Interpretation Comments SARS-CoV-2 INTERPRETATION Negative (test code = 17464) SOURCE (test code = 21587) Nasal_Swab_in_VTM__ UTM SARS-CoV-2 (COVID-19) by RT-PCR (HIGH RISK)2020-04-23 00:00:00 Test Item Value Reference Range Interpretation Comments SARS-CoV-2 INTERPRETATION Negative (test code = 58680) SOURCE (test code = 68070) Nasal_Swab_in_VTM__ UTM SARS-CoV-2 (COVID-19) by RT-PCR (HIGH RISK)2020-04-23 00:00:00 Test Item Value Reference Range Interpretation Comments SARS-CoV-2 INTERPRETATION Negative (test code = 96555) SOURCE (test code = 70489) Nasal_Swab_in_VTM__ UTM SARS-CoV-2 (COVID-19) by RT-PCR (HIGH RISK)2020-04-23 00:00:00 Test Item Value Reference Range Interpretation Comments SARS-CoV-2 INTERPRETATION Negative (test code = 20863) SOURCE (test code = 94542) Nasal_Swab_in_VTM__ UTM SARS-CoV-2 (COVID-19) by RT-PCR (HIGH RISK)2020-04-23 00:00:00 Test Item Value Reference Range Interpretation Comments SARS-CoV-2 INTERPRETATION Negative (test code = 32035) SOURCE (test code = 06585) Nasal_Swab_in_VTM__ UTM SARS-CoV-2 (COVID-19) by RT-PCR (HIGH RISK)2020-04-23 00:00:00 Test Item Value Reference Range Interpretation Comments SARS-CoV-2 INTERPRETATION Negative (test code = 26756) SOURCE (test code = 20068) Nasal_Swab_in_VTM__ UTM SARS-CoV-2 (COVID-19) by RT-PCR (HIGH RISK)2020-04-23 00:00:00 Test Item Value Reference Range Interpretation Comments SARS-CoV-2 INTERPRETATION Negative (test code = 83374) SOURCE (test code = 38461) Nasal_Swab_in_VTM__ UTM SARS-CoV-2 (COVID-19) by RT-PCR (HIGH RISK)2020-04-23 00:00:00 Test Item Value Reference Range Interpretation Comments SARS-CoV-2 INTERPRETATION Negative (test code = 06347) SOURCE (test code = 70440) Nasal_Swab_in_VTM__ UTM SARS-CoV-2 (COVID-19) by RT-PCR (HIGH RISK)2020-04-23 00:00:00 Test Item Value Reference Range Interpretation Comments SARS-CoV-2 INTERPRETATION Negative (test code = 37695) SOURCE (test code = 06843) Nasal_Swab_in_VTM__ UTM SARS-CoV-2 (COVID-19) by RT-PCR (HIGH RISK)2020-04-23 00:00:00 Test Item Value Reference Range Interpretation Comments SARS-CoV-2 INTERPRETATION Negative (test code = 13602) SOURCE (test code = 79261) Nasal_Swab_in_VTM__ UTM COMPREHENSIVE METABOLIC [id number] 00:00:00 Test Item Value Reference Range Interpretation Comments GLUCOSE (test code = 2217) 217 MG/DL BUN (test code = 2208) 13 MG/DL CREATININE (test code = 2214) 0.64 MG/DL eGFR AMER. (test code 128 ML/MIN/1.73 = 99922) eGFR NON- AMER. (test 110 ML/MIN/1.73 code = 33902) CALC BUN/CREAT (test code = 20 RATIO [...] BILIRUBIN, TOTAL (test code = 0.4 MG/DL 220) ALKALINE PHOSPHATASE (test 63 U/L code = 2204) AST (test code = 2218) 36 U/L ALT (test code = 2219) 47 U/L CULTURE, [id number] 00:00:00 Test Item Value Reference Range Interpretation Comments CULTURE, URINE (test SPECIMEN NUMBER: code = 25650) [id number] COMPREHENSIVE METABOLIC [id number] 00:00:00 Test Item Value Reference Range Interpretation Comments GLUCOSE (test code = 2217) 217 MG/DL BUN (test code = 2208) 13 MG/DL CREATININE (test code = 2214) 0.64 MG/DL eGFR AMER. (test code 128 ML/MIN/1.73 = 52766) eGFR NON- AMER. (test 110 ML/MIN/1.73 code = 63679) CALC BUN/CREAT (test code = 20 RATIO 2235) SODIUM (test code = 2231) 137 MEQ/L POTASSIUM (test code = 2228) 4.1 MEQ/L CHLORIDE (test code = 2215) 100 MEQ/L CARBON DIOXIDE (test code = 21 MEQ/L 2205) CALCIUM (test code = 2209) 10.0 MG/DL PROTEIN, TOTAL (test code = 7.7 G/DL 2228) ALBUMIN (test code = 220) 4.6 G/DL CALC GLOBULIN (test code = 3.1 G/DL 2239) CALC A/G RATIO (test code = 1.5 RATIO 2233) BILIRUBIN, TOTAL (test code = 0.4 MG/DL 2206) ALKALINE PHOSPHATASE (test 63 U/L code = 220) AST (test code = 2218) 36 U/L ALT (test code = 2219) 47 U/L CULTURE, [id number] 00:00:00 Test Item Value Reference Range Interpretation Comments CULTURE, URINE (test SPECIMEN NUMBER: code = 06396) [id number] LIPID [id number] 00:00:00 Test Item Value Reference Range Interpretation Comments CHOLESTEROL (test code = 2210) 220 MG/DL TRIGLYCERIDES (test code = 2232) 873 MG/DL HDL CHOLESTEROL (test code = 30 MG/DL 2220) CALC LDL CHOL (test code = 2237) (NOTE) MG/DL RISK RATIO LDL/HDL (test code = (NOTE) RATIO 2238) LIPID [id number] 00:00:00 Test Item Value Reference Range Interpretation Comments CHOLESTEROL (test code = 2210) 220 MG/DL TRIGLYCERIDES (test code = 2232) 873 MG/DL HDL CHOLESTEROL (test code = 30 MG/DL 2220) CALC LDL CHOL (test code = 2237) (NOTE) MG/DL RISK RATIO LDL/HDL (test code = (NOTE) RATIO 2238) HEMOGLOBIN [id number] 00:00:00 Test Item Value Reference Range Interpretation Comments HEMOGLOBIN A1c (test code = 32594) 10.9 % HEMOGLOBIN [id number] 00:00:00 Test Item Value Reference Range Interpretation Comments HEMOGLOBIN A1c (test code = 15480) 10.9 % HEMOGLOBIN [id number] 00:00:00 Test Item Value Reference Range Interpretation Comments HEMOGLOBIN A1c (test code = 07540) 10.9 % COMPREHENSIVE METABOLIC [id number] 00:00:00 Test Item Value Reference Range Interpretation Comments GLUCOSE (test code = 2217) 217 MG/DL BUN (test code = 2208) 13 MG/DL CREATININE (test code = 2214) 0.64 MG/DL eGFR AMER. (test code 128 ML/MIN/1.73 = 68453) eGFR NON- AMER. (test 110 ML/MIN/1.73 code = 18435) CALC BUN/CREAT (test code = 20 RATIO [...] code = 2219) 47 U/L COMPREHENSIVE METABOLIC [id number] 00:00:00 Test Item Value Reference Range Interpretation Comments GLUCOSE (test code = 2217) 217 MG/DL BUN (test code = 2208) 13 MG/DL CREATININE (test code = 2214) 0.64 MG/DL eGFR AMER. (test code 128 ML/MIN/1.73 = 63962) eGFR NON- AMER. (test 110 ML/MIN/1.73 code = 18613) CALC BUN/CREAT (test code = 20 RATIO [...] (test code = 2219) 47 U/L CULTURE, [id number] 00:00:00 Test Item Value Reference Range Interpretation Comments CULTURE, URINE (test SPECIMEN NUMBER: code = 02249) [id number] CULTURE, [id number] 00:00:00 Test Item Value Reference Range Interpretation Comments CULTURE, URINE (test SPECIMEN NUMBER: code = 41147) [id number] LIPID [id number] 00:00:00 Test Item Value Reference Range Interpretation Comments CHOLESTEROL (test code = 2210) 220 MG/DL TRIGLYCERIDES (test code = 2232) 873 MG/DL HDL CHOLESTEROL (test code = 30 MG/DL 2220) CALC LDL CHOL (test code = 2237) (NOTE) MG/DL RISK RATIO LDL/HDL (test code = (NOTE) RATIO 2238) LIPID [id number] 00:00:00 Test Item Value Reference Range Interpretation Comments CHOLESTEROL (test code = 2210) 220 MG/DL TRIGLYCERIDES (test code = 2232) 873 MG/DL HDL CHOLESTEROL (test code = 30 MG/DL 2220) CALC LDL CHOL (test code = 2237) (NOTE) MG/DL RISK RATIO LDL/HDL (test code = (NOTE) RATIO 2238) HEMOGLOBIN [id number] 00:00:00 Test Item Value Reference Range Interpretation Comments HEMOGLOBIN A1c (test code = 32440) 10.9 % HEMOGLOBIN [id number] 00:00:00 Test Item Value Reference Range Interpretation Comments HEMOGLOBIN A1c (test code = 65589) 10.9 % HEMOGLOBIN [id number] 00:00:00 Test Item Value Reference Range Interpretation Comments HEMOGLOBIN A1c (test code = 69340) 10.9 % CULTURE, [id number] 00:00:00 Test Item Value Reference Range Interpretation Comments CULTURE, URINE (test SPECIMEN NUMBER: code = 94626) [id number] CULTURE, [id number] 00:00:00 Test Item Value Reference Range Interpretation Comments CULTURE, URINE (test SPECIMEN NUMBER: code = 68681) [id number] COMPREHENSIVE METABOLIC [id number] 00:00:00 Test Item Value Reference Range Interpretation Comments GLUCOSE (test code = 2217) 217 MG/DL BUN (test code = 2208) 13 MG/DL CREATININE (test code = 2214) 0.64 MG/DL eGFR AMER. (test code 128 ML/MIN/1.73 = 12520) eGFR NON- AMER. (test 110 ML/MIN/1.73 code = 52994) CALC BUN/CREAT (test code = 20 RATIO [...] code = 2219) 47 U/L COMPREHENSIVE METABOLIC [id number] 00:00:00 Test Item Value Reference Range Interpretation Comments GLUCOSE (test code = 2217) 217 MG/DL BUN (test code = 2208) 13 MG/DL CREATININE (test code = 2214) 0.64 MG/DL eGFR AMER. (test code 128 ML/MIN/1.73 = 24365) eGFR NON- AMER. (test 110 ML/MIN/1.73 code = 60698) CALC BUN/CREAT (test code = 20 RATIO [...] (test code = 2219) 47 U/L LIPID [id number] 00:00:00 Test Item Value Reference Range Interpretation Comments CHOLESTEROL (test code = 2210) 220 MG/DL TRIGLYCERIDES (test code = 2232) 873 MG/DL HDL CHOLESTEROL (test code = 30 MG/DL 2220) CALC LDL CHOL (test code = 2237) (NOTE) MG/DL RISK RATIO LDL/HDL (test code = (NOTE) RATIO 2238) LIPID [id number] 00:00:00 Test Item Value Reference Range Interpretation Comments CHOLESTEROL (test code = 2210) 220 MG/DL TRIGLYCERIDES (test code = 2232) 873 MG/DL HDL CHOLESTEROL (test code = 30 MG/DL 2220) CALC LDL CHOL (test code = 2237) (NOTE) MG/DL RISK RATIO LDL/HDL (test code = (NOTE) RATIO 2238) HEMOGLOBIN [id number] 00:00:00 Test Item Value Reference Range Interpretation Comments HEMOGLOBIN A1c (test code = 52815) 10.9 % HEMOGLOBIN [id number] 00:00:00 Test Item Value Reference Range Interpretation Comments HEMOGLOBIN A1c (test code = 12407) 10.9 % HEMOGLOBIN [id number] 00:00:00 Test Item Value Reference Range Interpretation Comments HEMOGLOBIN A1c (test code = 52012) 10.9 % CULTURE, [id number] 00:00:00 Test Item Value Reference Range Interpretation Comments CULTURE, URINE (test SPECIMEN NUMBER: code = 80463) [id number] COMPREHENSIVE METABOLIC [id number] 00:00:00 Test Item Value Reference Range Interpretation Comments GLUCOSE (test code = 2217) 217 MG/DL BUN (test code = 2208) 13 MG/DL CREATININE (test code = 2214) 0.64 MG/DL eGFR AMER. (test code 128 ML/MIN/1.73 = 17277) eGFR NON- AMER. (test 110 ML/MIN/1.73 code = 43989) CALC BUN/CREAT (test code = 20 RATIO [...] code = 2219) 47 U/L COMPREHENSIVE METABOLIC [id number] 00:00:00 Test Item Value Reference Range Interpretation Comments GLUCOSE (test code = 2217) 217 MG/DL BUN (test code = 2208) 13 MG/DL CREATININE (test code = 2214) 0.64 MG/DL eGFR AMER. (test code 128 ML/MIN/1.73 = 07974) eGFR NON- AMER. (test 110 ML/MIN/1.73 code = 95737) CALC BUN/CREAT (test code = 20 RATIO [...] (test code = 2219) 47 U/L CULTURE, [id number] 00:00:00 Test Item Value Reference Range Interpretation Comments CULTURE, URINE (test SPECIMEN NUMBER: code = 20446) [id number] LIPID [id number] 00:00:00 Test Item Value Reference Range Interpretation Comments CHOLESTEROL (test code = 2210) 220 MG/DL TRIGLYCERIDES (test code = 2232) 873 MG/DL HDL CHOLESTEROL (test code = 30 MG/DL 2220) CALC LDL CHOL (test code = 2237) (NOTE) MG/DL RISK RATIO LDL/HDL (test code = (NOTE) RATIO 2238) LIPID [id number] 00:00:00 Test Item Value Reference Range Interpretation Comments CHOLESTEROL (test code = 2210) 220 MG/DL TRIGLYCERIDES (test code = 2232) 873 MG/DL HDL CHOLESTEROL (test code = 30 MG/DL 2220) CALC LDL CHOL (test code = 2237) (NOTE) MG/DL RISK RATIO LDL/HDL (test code = (NOTE) RATIO 2238) HEMOGLOBIN [id number] 00:00:00 Test Item Value Reference Range Interpretation Comments HEMOGLOBIN A1c (test code = 53976) 10.9 % HEMOGLOBIN [id number] 00:00:00 Test Item Value Reference Range Interpretation Comments HEMOGLOBIN A1c (test code = 42877) 10.9 % HEMOGLOBIN [id number] 00:00:00 Test Item Value Reference Range Interpretation Comments HEMOGLOBIN A1c (test code = 12726) 10.9 % COMPREHENSIVE METABOLIC [id number] 00:00:00 Test Item Value Reference Range Interpretation Comments GLUCOSE (test code = 2217) 217 MG/DL BUN (test code = 2208) 13 MG/DL CREATININE (test code = 2214) 0.64 MG/DL eGFR AMER. (test code 128 ML/MIN/1.73 = 06180) eGFR NON- AMER. (test 110 ML/MIN/1.73 code = 62820) CALC BUN/CREAT (test code = 20 RATIO [...] ALKALINE PHOSPHATASE (test 63 U/L code = 2203) AST (test code = 2218) 36 U/L ALT (test code = 2219) 47 U/L CULTURE, [id number] 00:00:00 Test Item Value Reference Range Interpretation Comments CULTURE, URINE (test SPECIMEN NUMBER: code = 07772) [id number] CULTURE, [id number] 00:00:00 Test Item Value Reference Range Interpretation Comments CULTURE, URINE (test SPECIMEN NUMBER: code = 43769) [id number] COMPREHENSIVE METABOLIC [id number] 00:00:00 Test Item Value Reference Range Interpretation Comments GLUCOSE (test code = 2217) 217 MG/DL BUN (test code = 2208) 13 MG/DL CREATININE (test code = 2214) 0.64 MG/DL eGFR AMER. (test code 128 ML/MIN/1.73 = 95379) eGFR NON- AMER. (test 110 ML/MIN/1.73 code = 55770) CALC BUN/CREAT (test code = 20 RATIO [...] (test code = 2219) 47 U/L LIPID [id number] 00:00:00 Test Item Value Reference Range Interpretation Comments CHOLESTEROL (test code = 2210) 220 MG/DL TRIGLYCERIDES (test code = 2232) 873 MG/DL HDL CHOLESTEROL (test code = 30 MG/DL 2220) CALC LDL CHOL (test code = 2237) (NOTE) MG/DL RISK RATIO LDL/HDL (test code = (NOTE) RATIO 2238) LIPID [id number] 00:00:00 Test Item Value Reference Range Interpretation Comments CHOLESTEROL (test code = 2210) 220 MG/DL TRIGLYCERIDES (test code = 2232) 873 MG/DL HDL CHOLESTEROL (test code = 30 MG/DL 2220) CALC LDL CHOL (test code = 2237) (NOTE) MG/DL RISK RATIO LDL/HDL (test code = (NOTE) RATIO 2238) HEMOGLOBIN [id number] 00:00:00 Test Item Value Reference Range Interpretation Comments HEMOGLOBIN A1c (test code = 11955) 10.9 % HEMOGLOBIN [id number] 00:00:00 Test Item Value Reference Range Interpretation Comments HEMOGLOBIN A1c (test code = 02198) 10.9 % HEMOGLOBIN [id number] 00:00:00 Test Item Value Reference Range Interpretation Comments HEMOGLOBIN A1c (test code = 29926) 10.9 % COMPREHENSIVE METABOLIC [id number] 00:00:00 Test Item Value Reference Range Interpretation Comments GLUCOSE (test code = 2217) 217 MG/DL BUN (test code = 2208) 13 MG/DL CREATININE (test code = 2214) 0.64 MG/DL eGFR AMER. (test code 128 ML/MIN/1.73 = 05837) eGFR NON- AMER. (test 110 ML/MIN/1.73 code = 80543) CALC BUN/CREAT (test code = 20 RATIO [...] ALKALINE PHOSPHATASE (test 63 U/L code = 220) AST (test code = 2218) 36 U/L ALT (test code = 2219) 47 U/L CULTURE, [id number] 00:00:00 Test Item Value Reference Range Interpretation Comments CULTURE, URINE (test SPECIMEN NUMBER: code = 66527) [id number] CULTURE, [id number] 00:00:00 Test Item Value Reference Range Interpretation Comments CULTURE, URINE (test SPECIMEN NUMBER: code = 52744) [id number] COMPREHENSIVE METABOLIC [id number] 00:00:00 Test Item Value Reference Range Interpretation Comments GLUCOSE (test code = 2217) 217 MG/DL BUN (test code = 2208) 13 MG/DL CREATININE (test code = 2214) 0.64 MG/DL eGFR AMER. (test code 128 ML/MIN/1.73 = 99212) eGFR NON- AMER. (test 110 ML/MIN/1.73 code = 74671) CALC BUN/CREAT (test code = 20 RATIO [...] (test code = 2219) 47 U/L LIPID [id number] 00:00:00 Test Item Value Reference Range Interpretation Comments CHOLESTEROL (test code = 2210) 220 MG/DL TRIGLYCERIDES (test code = 2232) 873 MG/DL HDL CHOLESTEROL (test code = 30 MG/DL 2220) CALC LDL CHOL (test code = 2237) (NOTE) MG/DL RISK RATIO LDL/HDL (test code = (NOTE) RATIO 2238) LIPID [id number] 00:00:00 Test Item Value Reference Range Interpretation Comments CHOLESTEROL (test code = 2210) 220 MG/DL TRIGLYCERIDES (test code = 2232) 873 MG/DL HDL CHOLESTEROL (test code = 30 MG/DL 2220) CALC LDL CHOL (test code = 2237) (NOTE) MG/DL RISK RATIO LDL/HDL (test code = (NOTE) RATIO 2238) HEMOGLOBIN [id number] 00:00:00 Test Item Value Reference Range Interpretation Comments HEMOGLOBIN A1c (test code = 21829) 10.9 % HEMOGLOBIN [id number] 00:00:00 Test Item Value Reference Range Interpretation Comments HEMOGLOBIN A1c (test code = 04424) 10.9 % HEMOGLOBIN [id number] 00:00:00 Test Item Value Reference Range Interpretation Comments HEMOGLOBIN A1c (test code = 80729) 10.9 % COMPREHENSIVE METABOLIC [id number] 00:00:00 Test Item Value Reference Range Interpretation Comments GLUCOSE (test code = 2217) 217 MG/DL BUN (test code = 2208) 13 MG/DL CREATININE (test code = 2214) 0.64 MG/DL eGFR AMER. (test code 128 ML/MIN/1.73 = 24336) eGFR NON- AMER. (test 110 ML/MIN/1.73 code = 03070) CALC BUN/CREAT (test code = 20 RATIO [...] code = 2219) 47 U/L COMPREHENSIVE METABOLIC [id number] 00:00:00 Test Item Value Reference Range Interpretation Comments GLUCOSE (test code = 2217) 217 MG/DL BUN (test code = 2208) 13 MG/DL CREATININE (test code = 2214) 0.64 MG/DL eGFR AMER. (test code 128 ML/MIN/1.73 = 58783) eGFR NON- AMER. (test 110 ML/MIN/1.73 code = 35768) CALC BUN/CREAT (test code = 20 RATIO [...] (test code = 2219) 47 U/L CULTURE, [id number] 00:00:00 Test Item Value Reference Range Interpretation Comments CULTURE, URINE (test SPECIMEN NUMBER: code = 27526 [id number] COMPREHENSIVE METABOLIC [id number] 00:00:00 Test Item Value Reference Range Interpretation Comments GLUCOSE (test code = 2217) 217 MG/DL BUN (test code = 2208) 13 MG/DL CREATININE (test code = 2214) 0.64 MG/DL eGFR AMER. (test code 128 ML/MIN/1.73 = 25591) eGFR NON- AMER. (test 110 ML/MIN/1.73 code = 67516) CALC BUN/CREAT (test code = 20 RATIO [...] (test code = 2219) 47 U/L CULTURE, [id number] 00:00:00 Test Item Value Reference Range Interpretation Comments CULTURE, URINE (test SPECIMEN NUMBER: code = 05424) [id number] LIPID [id number] 00:00:00 Test Item Value Reference Range Interpretation Comments CHOLESTEROL (test code = 2210) 220 MG/DL TRIGLYCERIDES (test code = 2232) 873 MG/DL HDL CHOLESTEROL (test code = 30 MG/DL 2220) CALC LDL CHOL (test code = 2237) (NOTE) MG/DL RISK RATIO LDL/HDL (test code = (NOTE) RATIO 2238) LIPID [id number] 00:00:00 Test Item Value Reference Range Interpretation Comments CHOLESTEROL (test code = 2210) 220 MG/DL TRIGLYCERIDES (test code = 2232) 873 MG/DL HDL CHOLESTEROL (test code = 30 MG/DL 2220) CALC LDL CHOL (test code = 2237) (NOTE) MG/DL RISK RATIO LDL/HDL (test code = (NOTE) RATIO 2238) HEMOGLOBIN [id number] 00:00:00 Test Item Value Reference Range Interpretation Comments HEMOGLOBIN A1c (test code = 35799) 10.9 % HEMOGLOBIN [id number] 00:00:00 Test Item Value Reference Range Interpretation Comments HEMOGLOBIN A1c (test code = 48730) 10.9 % HEMOGLOBIN [id number] 00:00:00 Test Item Value Reference Range Interpretation Comments HEMOGLOBIN A1c (test code = 37493) 10.9 % CULTURE, [id number] 00:00:00 Test Item Value Reference Range Interpretation Comments CULTURE, URINE (test SPECIMEN NUMBER: code = 50117) [id number] LIPID [id number] 00:00:00 Test Item Value Reference Range Interpretation Comments CHOLESTEROL (test code = 2210) 220 MG/DL TRIGLYCERIDES (test code = 2232) 873 MG/DL HDL CHOLESTEROL (test code = 30 MG/DL 2220) CALC LDL CHOL (test code = 2237) (NOTE) MG/DL RISK RATIO LDL/HDL (test code = (NOTE) RATIO 2238) HEMOGLOBIN [id number] 00:00:00 Test Item Value Reference Range Interpretation Comments HEMOGLOBIN A1c (test code = 41548) 10.9 % HEMOGLOBIN [id number] 00:00:00 Test Item Value Reference Range Interpretation Comments HEMOGLOBIN A1c (test code = 45760) 10.9 % CULTURE, [id number] 00:00:00 Test Item Value Reference Range Interpretation Comments CULTURE, URINE (test SPECIMEN NUMBER: code = 86159) [id number] COMPREHENSIVE METABOLIC [id number] 00:00:00 Test Item Value Reference Range Interpretation Comments GLUCOSE (test code = 2217) 217 MG/DL BUN (test code = 2208) 13 MG/DL CREATININE (test code = 2214) 0.64 MG/DL eGFR AMER. (test code 128 ML/MIN/1.73 = 28259) eGFR NON- AMER. (test 110 ML/MIN/1.73 code = 10012) CALC BUN/CREAT (test code = 20 RATIO [...] (test code = 2219) 47 U/L CULTURE, [id number] 00:00:00 Test Item Value Reference Range Interpretation Comments CULTURE, URINE (test SPECIMEN NUMBER: code = 97102) [id number] COMPREHENSIVE METABOLIC [id number] 00:00:00 Test Item Value Reference Range Interpretation Comments GLUCOSE (test code = 2217) 217 MG/DL BUN (test code = 2208) 13 MG/DL CREATININE (test code = 2214) 0.64 MG/DL eGFR AMER. (test code 128 ML/MIN/1.73 = 05771) eGFR NON- AMER. (test 110 ML/MIN/1.73 code = 11223) CALC BUN/CREAT (test code = 20 RATIO [...] (test code = 2219) 47 U/L LIPID [id number] 00:00:00 Test Item Value Reference Range Interpretation Comments CHOLESTEROL (test code = 2210) 220 MG/DL TRIGLYCERIDES (test code = 2232) 873 MG/DL HDL CHOLESTEROL (test code = 30 MG/DL 2220) CALC LDL CHOL (test code = 2237) (NOTE) MG/DL RISK RATIO LDL/HDL (test code = (NOTE) RATIO 2238) LIPID [id number] 00:00:00 Test Item Value Reference Range Interpretation Comments CHOLESTEROL (test code = 2210) 220 MG/DL TRIGLYCERIDES (test code = 2232) 873 MG/DL HDL CHOLESTEROL (test code = 30 MG/DL 2219) CALC LDL CHOL (test code = 2237) (NOTE) MG/DL RISK RATIO LDL/HDL (test code = (NOTE) RATIO 2238) HEMOGLOBIN [id number] 00:00:00 Test Item Value Reference Range Interpretation Comments HEMOGLOBIN A1c (test code = 08100) 10.9 % HEMOGLOBIN [id number] 00:00:00 Test Item Value Reference Range Interpretation Comments HEMOGLOBIN A1c (test code = 31159) 10.9 % HEMOGLOBIN [id number] 00:00:00 Test Item Value Reference Range Interpretation Comments HEMOGLOBIN A1c (test code = 94203) 10.9 % CULTURE, [id number] 00:00:00 Test Item Value Reference Range Interpretation Comments CULTURE, URINE (test SPECIMEN NUMBER: code = 15180) [id number] COMPREHENSIVE METABOLIC [id number] 00:00:00 Test Item Value Reference Range Interpretation Comments GLUCOSE (test code = 7) 217 MG/DL BUN (test code = 8) 13 MG/DL CREATININE (test code = 2214) 0.64 MG/DL eGFR AMER. (test code 128 ML/MIN/1.73 = 34924) eGFR NON- AMER. (test 110 ML/MIN/1.73 code = 53877) CALC BUN/CREAT (test code = 20 RATIO [...] (test code = 2219) 47 U/L CULTURE, [id number] 00:00:00 Test Item Value Reference Range Interpretation Comments CULTURE, URINE (test SPECIMEN NUMBER: code = 48230 [id number] COMPREHENSIVE METABOLIC [id number] 00:00:00 Test Item Value Reference Range Interpretation Comments GLUCOSE (test code = 2217) 217 MG/DL BUN (test code = 2208) 13 MG/DL CREATININE (test code = 2214) 0.64 MG/DL eGFR AMER. (test code 128 ML/MIN/1.73 = 60636) eGFR NON- AMER. (test 110 ML/MIN/1.73 code = 06704) CALC BUN/CREAT (test code = 20 RATIO [...] (test code = 2219) 47 U/L LIPID [id number] 00:00:00 Test Item Value Reference Range Interpretation Comments CHOLESTEROL (test code = 2210) 220 MG/DL TRIGLYCERIDES (test code = 2232) 873 MG/DL HDL CHOLESTEROL (test code = 30 MG/DL 2220) CALC LDL CHOL (test code = 2237) (NOTE) MG/DL RISK RATIO LDL/HDL (test code = (NOTE) RATIO 2238) LIPID [id number] 00:00:00 Test Item Value Reference Range Interpretation Comments CHOLESTEROL (test code = 2210) 220 MG/DL TRIGLYCERIDES (test code = 2232) 873 MG/DL HDL CHOLESTEROL (test code = 30 MG/DL 2220) CALC LDL CHOL (test code = 2237) (NOTE) MG/DL RISK RATIO LDL/HDL (test code = (NOTE) RATIO 2238) HEMOGLOBIN [id number] 00:00:00 Test Item Value Reference Range Interpretation Comments HEMOGLOBIN A1c (test code = 04817) 10.9 % HEMOGLOBIN [id number] 00:00:00 Test Item Value Reference Range Interpretation Comments HEMOGLOBIN A1c (test code = 24077) 10.9 % HEMOGLOBIN [id number] 00:00:00 Test Item Value Reference Range Interpretation Comments HEMOGLOBIN A1c (test code = 38990) 10.9 % COMPREHENSIVE METABOLIC [id number] 00:00:00 Test Item Value Reference Range Interpretation Comments GLUCOSE (test code = 2217) 217 MG/DL BUN (test code = 2208) 13 MG/DL CREATININE (test code = 2214) 0.64 MG/DL eGFR AMER. (test code 128 ML/MIN/1.73 = 29901) eGFR NON- AMER. (test 110 ML/MIN/1.73 code = 60135) CALC BUN/CREAT (test code = 20 RATIO [...] (test code = 2219) 47 U/L CULTURE, [id number] 00:00:00 Test Item Value Reference Range Interpretation Comments CULTURE, URINE (test SPECIMEN NUMBER: code = 57576) [id number] COMPREHENSIVE METABOLIC [id number] 00:00:00 Test Item Value Reference Range Interpretation Comments GLUCOSE (test code = 2217) 217 MG/DL BUN (test code = 2208) 13 MG/DL CREATININE (test code = 2214) 0.64 MG/DL eGFR AMER. (test code 128 ML/MIN/1.73 = 80258) eGFR NON- AMER. (test 110 ML/MIN/1.73 code = 05162) CALC BUN/CREAT (test code = 20 RATIO [...] ALKALINE PHOSPHATASE (test 63 U/L code = 220) AST (test code = 2218) 36 U/L ALT (test code = 2219) 47 U/L CULTURE, [id number] 00:00:00 Test Item Value Reference Range Interpretation Comments CULTURE, URINE (test SPECIMEN NUMBER: code = 02573) [id number] LIPID [id number] 00:00:00 Test Item Value Reference Range Interpretation Comments CHOLESTEROL (test code = 2210) 220 MG/DL TRIGLYCERIDES (test code = 2232) 873 MG/DL HDL CHOLESTEROL (test code = 30 MG/DL 2220) CALC LDL CHOL (test code = 2237) (NOTE) MG/DL RISK RATIO LDL/HDL (test code = (NOTE) RATIO 2238) LIPID [id number] 00:00:00 Test Item Value Reference Range Interpretation Comments CHOLESTEROL (test code = 2210) 220 MG/DL TRIGLYCERIDES (test code = 2232) 873 MG/DL HDL CHOLESTEROL (test code = 30 MG/DL 2220) CALC LDL CHOL (test code = 2237) (NOTE) MG/DL RISK RATIO LDL/HDL (test code = (NOTE) RATIO 2238) HEMOGLOBIN [id number] 00:00:00 Test Item Value Reference Range Interpretation Comments HEMOGLOBIN A1c (test code = 60095) 10.9 % HEMOGLOBIN [id number] 00:00:00 Test Item Value Reference Range Interpretation Comments HEMOGLOBIN A1c (test code = 40664) 10.9 % HEMOGLOBIN [id number] 00:00:00 Test Item Value Reference Range Interpretation Comments HEMOGLOBIN A1c (test code = 00163) 10.9 % - XR ANKLE 3 + V [id number] 07:19:00 Patient Name: Marge Franco Unit No: [id number] EXAMS: CPT CODE: [id number] XR ANKLE 3 + V RT 19025 Right ankle 3 views COMMENT: There is [...] MD CC: Barry Hodge DO Technologist: SAMANTHA MORALES RT(R) Transcribed D/ (07) MickeyL [facility] NAME: Marge Franco [address] [place] [address] PHYS: Barry Cardenas DO : 1980 AGE: 40 SEX: F [place] [address] NO: [id number] LOC: TEOFILO PHONE #: [phone] EXAM DATE: 02/13/2020 STATUS: DEP ER FAX #: [phone] RAD #: D/C DT PAGE 1 Signed Report Patient Name: Marge Franco Unit No: [id number] EXAMS:CPT CODE: [id number] XR ANKLE 3 + V RT 49981 (Continued) Orig Print D/T: S: 02/14/2020 (07) [facility] NAME: Marge Franco [address] [facility] PHYS: Barry Cardenas DO : 1980 AGE: 40 SEX: F [place] [address] LOC: TEOFILO PHONE #: [phone] EXAM DATE: 02/13/2020 STATUS: DEP ER FAX #: [phone] RAD #: D/C DT PAGE 2 Signed Report- XR FOOT 2 VIEWS [id number] 07:19:00 Patient Name: Marge Franco Unit No: [id number] EXAMS: CPT CODE: [id number] XR FOOT [address] [place] [address] Right ankle 3 views COMMENT: There is no evidence for fracture. There is no evidence for wideningof the ankle mortise. There is no evidence for a joint effusion or loose body. A small plantar calcan eal spur is noted. Right foot 2 views COMMENT: There is no evidence for fracture or subluxation. No focal bony lesions are seen. at 0719 Reported and signed by: Prasad Marina MD CC: Barry Hodge DO Technologist: SAMANTHA MORALES, RT(R) Transcribed D/ (718) t.ARNOLR.L [facility] NAME: Marge Franco [address] [place] [address] PHYS: Barry Cardenas DO : 1980 AGE: 40 SEX: F [place] [address] LOC: TEOFILO PHONE #: [phone] EXAM DATE: 02/13/2020 STATUS: DEP ER FAX #: [phone] RAD #: D/C DT PAGE 1 Signed Report Patient Name: Marge Franco Unit No: [id number] EXAMS: CPT CODE: [id number] XR FOOT [address] [place] [address] (Continued) Orig Print D/T: S: 02/14/2020 (07)[facility] NAME: Marge Franco [facility] PHYS: Barry Cardenas DO : 1980 AGE: 40 SEX: F [place] [address] LOC: TEOFILO PHONE #: [phone] EXAM DATE: 02/13/2020 STATUS: DEP ER FAX #: [phone] RAD #: D/C DT PAGE 2 Signed [id number] 11:17:00 Test Item Value Reference Range Interpretation Comments GLUBED (test code = GLUBED) 119 mg/dL 60-125 N [id number] 08:15:00 Test Item Value Reference Range Interpretation Comments GLUBED (test code = GLUBED) 117 mg/dL 60-125 N Novel Coronavirus 2019 [id number] 17:12:00 Test Item Value Reference Range Interpretation Comments Novel Coronavirus 2019 Inhouse (test Negative Negative code = COVNONPUI) Novel Coronavirus 2019 [id number] 17:12:00 Test Item Value Reference Range Interpretation Comments Novel Coronavirus 2019 Inhouse (test Negative Negative code = COVNONPUI) CBC W/AUTO [id number] 20:19:00 Test Item Value Reference Range Interpretation [...] 0-0 N code = NRBC) BASIC METABOLIC [id number] 19:54:00 Test Item Value Reference Range Interpretation [...] RATE (test code = GFR) mL/mi n/1.73 [id number] Range:Healthy A dults >90 mL/min/1.73 m2 For Chronic Kid stoney Disease: Stage II Mild Decrease i n GFR 60-90 Stage III Moderate Decrea se in GFR 30-59 Stage IV Severe Decrease in GFR 15-29 Stage V Kidney Failure <15 CREATININE (test code 0.83 mg/dL 0.55-1.30 N = CREAT) CALCIUM (test code = 9.6 mg/dL 8.2-10.1 N CA) - CT LOWER EXTRM W/O C [id number] 14:57:00 Patient Name: MARGE FRANCO Unit No: [id number] EXAMS: CPT CODE: [id number] CT LOWER EXTRM W/[place] [address] CT SCAN RIGHT ANKLE WITH RECONSTRUCTION DIAGNOSIS: [...] with ACR practice standards and adherence to [employer]'s recommendations. INDICATION: RIGHT ANKLE PAIN COMPARISON: None. COMMENT: Findings are as described above. at 1450 Reported and signed by: America Schuler MD CC: Elbert Wilson MD Technologist: Shaan Reyez s,RT(R) CTDI: DLP: Trnscrpt: 01/04/2020 (5786) t.SDR.GVG [facility] NAME: MARGE FRANCO[address] PHYS: Elbert Rodrigues MD : 1980 AGE: 39 SEX: F [place] [address] LOC: Y.RAD PHONE #: [phone] EXAM DATE: 01/04/2020 STATUS: REG CLI FAX #: [phone] RAD #: D/C DT PAGE 1 Signed Report Patient Name: MARGE FRANCO Unit No: [id number] EXAMS: CPT CODE: [id number] CT LOWER EXTRM W/[place] [address] (Continued) Orig Print D/T: S: 01/04/2020 (1500) [facility] NAME: MARGE FRANCO [address] [place] [address] PHYS: Elbert Rodrigues MD : 1980 AGE: 39 SEX: F [place] [address] : Y.RAD PHONE #: [phone] EXAM DATE: 01/04/2020 STATUS: REG CLI FAX #: [phone] RAD #: D/C DT PAGE 2 Signed ReportCULTURE, URINE 2019-12-22 00:00:00 Test Item Value Reference Range Interpretation Comments CULTURE, URINE (test SPECIMEN NUMBER: code = 04113) [id number] CULTURE, [id number] 00:00:00 Test Item Value Reference Range Interpretation Comments CULTURE, URINE (test SPECIMEN NUMBER: code = 98952) [id number] CULTURE, [id number] 00:00:00 Test Item Value Reference Range Interpretation Comments CULTURE, URINE (test SPECIMEN NUMBER: code = 93865) [id number] CULTURE, [id number] 00:00:00 Test Item Value Reference Range Interpretation Comments CULTURE, URINE (test SPECIMEN NUMBER: code = 70933) [id number] CULTURE, [id number] 00:00:00 Test Item Value Reference Range Interpretation Comments CULTURE, URINE (test SPECIMEN NUMBER: code = 77780) [id number] CULTURE, [id number] 00:00:00 Test Item Value Reference Range Interpretation Comments CULTURE, URINE (test SPECIMEN NUMBER: code = 46689) [id number] CULTURE, [id number] 00:00:00 Test Item Value Reference Range Interpretation Comments CULTURE, URINE (test SPECIMEN NUMBER: code = 28509) [id number] CULTURE, [id number] 00:00:00 Test Item Value Reference Range Interpretation Comments CULTURE, URINE (test SPECIMEN NUMBER: code = 37434) [id number] CULTURE, [id number] 00:00:00 Test Item Value Reference Range Interpretation Comments CULTURE, URINE (test SPECIMEN NUMBER: code = 80420) [id number] CULTURE, [id number] 00:00:00 Test Item Value Reference Range Interpretation Comments CULTURE, URINE (test SPECIMEN NUMBER: code = 34123) [id number] CULTURE, [id number] 00:00:00 Test Item Value Reference Range Interpretation Comments CULTURE, URINE (test SPECIMEN NUMBER: code = 02811) [id number] CULTURE, [id number] 00:00:00 Test Item Value Reference Range Interpretation Comments CULTURE, URINE (test SPECIMEN NUMBER: code = 67153) [id number] CULTURE, [id number] 00:00:00 Test Item Value Reference Range Interpretation Comments CULTURE, URINE (test SPECIMEN NUMBER: code = 16875) [id number] CULTURE, [id number] 00:00:00 Test Item Value Reference Range Interpretation Comments CULTURE, URINE (test SPECIMEN NUMBER: code = 89101) [id number] CULTURE, [id number] 00:00:00 Test Item Value Reference Range Interpretation Comments CULTURE, URINE (test SPECIMEN NUMBER: code = 80891) [id number] CULTURE, [id number] 00:00:00 Test Item Value Reference Range Interpretation Comments CULTURE, URINE (test SPECIMEN NUMBER: code = 54399) [id number] CULTURE, [id number] 00:00:00 Test Item Value Reference Range Interpretation Comments CULTURE, URINE (test SPECIMEN NUMBER: code = 93044) [id number] CULTURE, [id number] 00:00:00 Test Item Value Reference Range Interpretation Comments CULTURE, URINE (test SPECIMEN NUMBER: code = 85513) [id number] CULTURE, [id number] 00:00:00 Test Item Value Reference Range Interpretation Comments CULTURE, URINE (test SPECIMEN NUMBER: code = 27071) [id number] CULTURE, [id number] 00:00:00 Test Item Value Reference Range Interpretation Comments CULTURE, URINE (test SPECIMEN NUMBER: code = 63223) [id number] CULTURE, [id number] 00:00:00 Test Item Value Reference Range Interpretation Comments CULTURE, URINE (test SPECIMEN NUMBER: code = 49215) [id number] LIPID [id number] 00:00:00 Test Item Value Reference Range Interpretation Comments CHOLESTEROL (test code = 2210) 354 MG/DL TRIGLYCERIDES (test code = 2232) 2608 MG/DL HDL CHOLESTEROL (test code = 19 MG/DL 2220) CALC LDL CHOL (test code = 2237) NOTE MG/DL RISK RATIO LDL/HDL (test code = (NOTE) RATIO 2238) LIPID [id number] 00:00:00 Test Item Value Reference Range Interpretation Comments CHOLESTEROL (test code = 2210) 354 MG/DL TRIGLYCERIDES (test code = 2232) 2608 MG/DL HDL CHOLESTEROL (test code = 19 MG/DL 2220) CALC LDL CHOL (test code = 2237) NOTE MG/DL RISK RATIO LDL/HDL (test code = (NOTE) RATIO 2238) HEMOGLOBIN [id number] 00:00:00 Test Item Value Reference Range Interpretation Comments HEMOGLOBIN A1c (test code = 64825) 11.5 % HEMOGLOBIN [id number] 00:00:00 Test Item Value Reference Range Interpretation Comments HEMOGLOBIN A1c (test code = 02135) 11.5 % HEMOGLOBIN [id number] 00:00:00 Test Item Value Reference Range Interpretation Comments HEMOGLOBIN A1c (test code = 75037) 11.5 % MICROALBUMIN/CREATININE, RANDOM AND [id number] 00:00:00 Test Item Value Reference Range Interpretation Comments CREATININE, URINE, CONC. (test 92.4 MG/DL code = 2072) ALBUMIN, URINE, RANDOM (test code 158.5 MG/DL = 77090) CALC ALBUMIN/CREAT, RND (test 1715 MG/G code = 41795) MICROALBUMIN/CREATININE, RANDOM AND [id number] 00:00:00 Test Item Value Reference Range Interpretation Comments CREATININE, URINE, CONC. (test 92.4 MG/DL code = 2072) ALBUMIN, URINE, RANDOM (test code 158.5 MG/DL = 44208) CALC ALBUMIN/CREAT, RND (test 1715 MG/G code = 43108) LIPID [id number] 00:00:00 Test Item Value Reference Range Interpretation Comments CHOLESTEROL (test code = 2210) 354 MG/DL TRIGLYCERIDES (test code = 2232) 2608 MG/DL HDL CHOLESTEROL (test code = 19 MG/DL 2220) CALC LDL CHOL (test code = 2237) NOTE MG/DL RISK RATIO LDL/HDL (test code = (NOTE) RATIO 2238) LIPID [id number] 00:00:00 Test Item Value Reference Range Interpretation Comments CHOLESTEROL (test code = 2210) 354 MG/DL TRIGLYCERIDES (test code = 2232) 2608 MG/DL HDL CHOLESTEROL (test code = 19 MG/DL 2220) CALC LDL CHOL (test code = 2237) NOTE MG/DL RISK RATIO LDL/HDL (test code = (NOTE) RATIO 2238) HEMOGLOBIN [id number] 00:00:00 Test Item Value Reference Range Interpretation Comments HEMOGLOBIN A1c (test code = 63506) 11.5 % HEMOGLOBIN [id number] 00:00:00 Test Item Value Reference Range Interpretation Comments HEMOGLOBIN A1c (test code = 92281) 11.5 % HEMOGLOBIN [id number] 00:00:00 Test Item Value Reference Range Interpretation Comments HEMOGLOBIN A1c (test code = 24236) 11.5 % MICROALBUMIN/CREATININE, RANDOM AND [id number] 00:00:00 Test Item Value Reference Range Interpretation Comments CREATININE, URINE, CONC. (test 92.4 MG/DL code = 2072) ALBUMIN, URINE, RANDOM (test code 158.5 MG/DL = 05639) CALC ALBUMIN/CREAT, RND (test 1715 MG/G code = 18900) MICROALBUMIN/CREATININE, RANDOM AND [id number] 00:00:00 Test Item Value Reference Range Interpretation Comments CREATININE, URINE, CONC. (test 92.4 MG/DL code = 2072) ALBUMIN, URINE, RANDOM (test code 158.5 MG/DL = 34870) CALC ALBUMIN/CREAT, RND (test 1715 MG/G code = 79559) LIPID [id number] 00:00:00 Test Item Value Reference Range Interpretation Comments CHOLESTEROL (test code = 2210) 354 MG/DL TRIGLYCERIDES (test code = 2232) 2608 MG/DL HDL CHOLESTEROL (test code = 19 MG/DL 2220) CALC LDL CHOL (test code = 2237) NOTE MG/DL RISK RATIO LDL/HDL (test code = (NOTE) RATIO 2238) LIPID [id number] 00:00:00 Test Item Value Reference Range Interpretation Comments CHOLESTEROL (test code = 2210) 354 MG/DL TRIGLYCERIDES (test code = 2232) 2608 MG/DL HDL CHOLESTEROL (test code = 19 MG/DL 2220) CALC LDL CHOL (test code = 2237) NOTE MG/DL RISK RATIO LDL/HDL (test code = (NOTE) RATIO 2238) HEMOGLOBIN [id number] 00:00:00 Test Item Value Reference Range Interpretation Comments HEMOGLOBIN A1c (test code = 92227) 11.5 % HEMOGLOBIN [id number] 00:00:00 Test Item Value Reference Range Interpretation Comments HEMOGLOBIN A1c (test code = 09246) 11.5 % HEMOGLOBIN [id number] 00:00:00 Test Item Value Reference Range Interpretation Comments HEMOGLOBIN A1c (test code = 34105) 11.5 % MICROALBUMIN/CREATININE, RANDOM AND [id number] 00:00:00 Test Item Value Reference Range Interpretation Comments CREATININE, URINE, CONC. (test 92.4 MG/DL code = 2072) ALBUMIN, URINE, RANDOM (test code 158.5 MG/DL = 16737) CALC ALBUMIN/CREAT, RND (test 1715 MG/G code = 92117) MICROALBUMIN/CREATININE, RANDOM AND [id number] 00:00:00 Test Item Value Reference Range Interpretation Comments CREATININE, URINE, CONC. (test 92.4 MG/DL code = 2072) ALBUMIN, URINE, RANDOM (test code 158.5 MG/DL = 33558) CALC ALBUMIN/CREAT, RND (test 1715 MG/G code = 34863) LIPID [id number] 00:00:00 Test Item Value Reference Range Interpretation Comments CHOLESTEROL (test code = 2210) 354 MG/DL TRIGLYCERIDES (test code = 2232) 2608 MG/DL HDL CHOLESTEROL (test code = 19 MG/DL 2220) CALC LDL CHOL (test code = 2237) NOTE MG/DL RISK RATIO LDL/HDL (test code = (NOTE) RATIO 2238) LIPID [id number] 00:00:00 Test Item Value Reference Range Interpretation Comments CHOLESTEROL (test code = 2210) 354 MG/DL TRIGLYCERIDES (test code = 2232) 2608 MG/DL HDL CHOLESTEROL (test code = 19 MG/DL 2220) CALC LDL CHOL (test code = 2237) NOTE MG/DL RISK RATIO LDL/HDL (test code = (NOTE) RATIO 2238) HEMOGLOBIN [id number] 00:00:00 Test Item Value Reference Range Interpretation Comments HEMOGLOBIN A1c (test code = 24488) 11.5 % HEMOGLOBIN [id number] 00:00:00 Test Item Value Reference Range Interpretation Comments HEMOGLOBIN A1c (test code = 80018) 11.5 % HEMOGLOBIN [id number] 00:00:00 Test Item Value Reference Range Interpretation Comments HEMOGLOBIN A1c (test code = 70398) 11.5 % MICROALBUMIN/CREATININE, RANDOM AND [id number] 00:00:00 Test Item Value Reference Range Interpretation Comments CREATININE, URINE, CONC. (test 92.4 MG/DL code = 2072) ALBUMIN, URINE, RANDOM (test code 158.5 MG/DL = 98163) CALC ALBUMIN/CREAT, RND (test 1715 MG/G code = 01680) MICROALBUMIN/CREATININE, RANDOM AND [id number] 00:00:00 Test Item Value Reference Range Interpretation Comments CREATININE, URINE, CONC. (test 92.4 MG/DL code = 2072) ALBUMIN, URINE, RANDOM (test code 158.5 MG/DL = 14794) CALC ALBUMIN/CREAT, RND (test 1715 MG/G code = 78895) LIPID [id number] 00:00:00 Test Item Value Reference Range Interpretation Comments CHOLESTEROL (test code = 2210) 354 MG/DL TRIGLYCERIDES (test code = 2232) 2608 MG/DL HDL CHOLESTEROL (test code = 19 MG/DL 2220) CALC LDL CHOL (test code = 2237) NOTE MG/DL RISK RATIO LDL/HDL (test code = (NOTE) RATIO 2238) LIPID [id number] 00:00:00 Test Item Value Reference Range Interpretation Comments CHOLESTEROL (test code = 2210) 354 MG/DL TRIGLYCERIDES (test code = 2232) 2608 MG/DL HDL CHOLESTEROL (test code = 19 MG/DL 2220) CALC LDL CHOL (test code = 2237) NOTE MG/DL RISK RATIO LDL/HDL (test code = (NOTE) RATIO 2238) HEMOGLOBIN [id number] 00:00:00 Test Item Value Reference Range Interpretation Comments HEMOGLOBIN A1c (test code = 16783) 11.5 % HEMOGLOBIN [id number] 00:00:00 Test Item Value Reference Range Interpretation Comments HEMOGLOBIN A1c (test code = 93396) 11.5 % HEMOGLOBIN [id number] 00:00:00 Test Item Value Reference Range Interpretation Comments HEMOGLOBIN A1c (test code = 91075) 11.5 % MICROALBUMIN/CREATININE, RANDOM AND [id number] 00:00:00 Test Item Value Reference Range Interpretation Comments CREATININE, URINE, CONC. (test 92.4 MG/DL code = 2072) ALBUMIN, URINE, RANDOM (test code 158.5 MG/DL = 40525) CALC ALBUMIN/CREAT, RND (test 1715 MG/G code = 47004) MICROALBUMIN/CREATININE, RANDOM AND [id number] 00:00:00 Test Item Value Reference Range Interpretation Comments CREATININE, URINE, CONC. (test 92.4 MG/DL code = 2072) ALBUMIN, URINE, RANDOM (test code 158.5 MG/DL = 64110) CALC ALBUMIN/CREAT, RND (test 1715 MG/G code = 92264) LIPID [id number] 00:00:00 Test Item Value Reference Range Interpretation Comments CHOLESTEROL (test code = 2210) 354 MG/DL TRIGLYCERIDES (test code = 2232) 2608 MG/DL HDL CHOLESTEROL (test code = 19 MG/DL 2220) CALC LDL CHOL (test code = 2237) NOTE MG/DL RISK RATIO LDL/HDL (test code = (NOTE) RATIO 2238) LIPID [id number] 00:00:00 Test Item Value Reference Range Interpretation Comments CHOLESTEROL (test code = 2210) 354 MG/DL TRIGLYCERIDES (test code = 2232) 2608 MG/DL HDL CHOLESTEROL (test code = 19 MG/DL 2220) CALC LDL CHOL (test code = 2237) NOTE MG/DL RISK RATIO LDL/HDL (test code = (NOTE) RATIO 2238) HEMOGLOBIN [id number] 00:00:00 Test Item Value Reference Range Interpretation Comments HEMOGLOBIN A1c (test code = 91305) 11.5 % HEMOGLOBIN [id number] 00:00:00 Test Item Value Reference Range Interpretation Comments HEMOGLOBIN A1c (test code = 85705) 11.5 % HEMOGLOBIN [id number] 00:00:00 Test Item Value Reference Range Interpretation Comments HEMOGLOBIN A1c (test code = 71186) 11.5 % MICROALBUMIN/CREATININE, RANDOM AND [id number] 00:00:00 Test Item Value Reference Range Interpretation Comments CREATININE, URINE, CONC. (test 92.4 MG/DL code = 2072) ALBUMIN, URINE, RANDOM (test code 158.5 MG/DL = 08595) CALC ALBUMIN/CREAT, RND (test 1715 MG/G code = 90123) MICROALBUMIN/CREATININE, RANDOM AND [id number] 00:00:00 Test Item Value Reference Range Interpretation Comments CREATININE, URINE, CONC. (test 92.4 MG/DL code = 2072) ALBUMIN, URINE, RANDOM (test code 158.5 MG/DL = 08176) CALC ALBUMIN/CREAT, RND (test 1715 MG/G code = 10185) LIPID [id number] 00:00:00 Test Item Value Reference Range Interpretation Comments CHOLESTEROL (test code = 2210) 354 MG/DL TRIGLYCERIDES (test code = 2232) 2608 MG/DL HDL CHOLESTEROL (test code = 19 MG/DL 2220) CALC LDL CHOL (test code = 2237) NOTE MG/DL RISK RATIO LDL/HDL (test code = (NOTE) RATIO 2238) LIPID [id number] 00:00:00 Test Item Value Reference Range Interpretation Comments CHOLESTEROL (test code = 2210) 354 MG/DL TRIGLYCERIDES (test code = 2232) 2608 MG/DL HDL CHOLESTEROL (test code = 19 MG/DL 2220) CALC LDL CHOL (test code = 2237) NOTE MG/DL RISK RATIO LDL/HDL (test code = (NOTE) RATIO 2238) HEMOGLOBIN [id number] 00:00:00 Test Item Value Reference Range Interpretation Comments HEMOGLOBIN A1c (test code = 30466) 11.5 % HEMOGLOBIN [id number] 00:00:00 Test Item Value Reference Range Interpretation Comments HEMOGLOBIN A1c (test code = 59891) 11.5 % HEMOGLOBIN [id number] 00:00:00 Test Item Value Reference Range Interpretation Comments HEMOGLOBIN A1c (test code = 65268) 11.5 % MICROALBUMIN/CREATININE, RANDOM AND [id number] 00:00:00 Test Item Value Reference Range Interpretation Comments CREATININE, URINE, CONC. (test 92.4 MG/DL code = 2072) ALBUMIN, URINE, RANDOM (test code 158.5 MG/DL = 34240) CALC ALBUMIN/CREAT, RND (test 1715 MG/G code = 53475) MICROALBUMIN/CREATININE, RANDOM AND [id number] 00:00:00 Test Item Value Reference Range Interpretation Comments CREATININE, URINE, CONC. (test 92.4 MG/DL code = 2072) ALBUMIN, URINE, RANDOM (test code 158.5 MG/DL = 65387) CALC ALBUMIN/CREAT, RND (test 1715 MG/G code = 69310) LIPID [id number] 00:00:00 Test Item Value Reference Range Interpretation Comments CHOLESTEROL (test code = 2210) 354 MG/DL TRIGLYCERIDES (test code = 2232) 2608 MG/DL HDL CHOLESTEROL (test code = 19 MG/DL 2220) CALC LDL CHOL (test code = 2237) NOTE MG/DL RISK RATIO LDL/HDL (test code = (NOTE) RATIO 2238) HEMOGLOBIN [id number] 00:00:00 Test Item Value Reference Range Interpretation Comments HEMOGLOBIN A1c (test code = 08622) 11.5 % HEMOGLOBIN [id number] 00:00:00 Test Item Value Reference Range Interpretation Comments HEMOGLOBIN A1c (test code = 80985) 11.5 % MICROALBUMIN/CREATININE, RANDOM AND [id number] 00:00:00 Test Item Value Reference Range Interpretation Comments CREATININE, URINE, CONC. (test 92.4 MG/DL code = 2072) ALBUMIN, URINE, RANDOM (test code 158.5 MG/DL = 41504) CALC ALBUMIN/CREAT, RND (test 1715 MG/G code = 22519) LIPID [id number] 00:00:00 Test Item Value Reference Range Interpretation Comments CHOLESTEROL (test code = 2210) 354 MG/DL TRIGLYCERIDES (test code = 2232) 2608 MG/DL HDL CHOLESTEROL (test code = 19 MG/DL 2220) CALC LDL CHOL (test code = 2237) NOTE MG/DL RISK RATIO LDL/HDL (test code = (NOTE) RATIO 2238) LIPID [id number] 00:00:00 Test Item Value Reference Range Interpretation Comments CHOLESTEROL (test code = 2210) 354 MG/DL TRIGLYCERIDES (test code = 2232) 2608 MG/DL HDL CHOLESTEROL (test code = 19 MG/DL 2220) CALC LDL CHOL (test code = 2237) NOTE MG/DL RISK RATIO LDL/HDL (test code = (NOTE) RATIO 2238) HEMOGLOBIN [id number] 00:00:00 Test Item Value Reference Range Interpretation Comments HEMOGLOBIN A1c (test code = 91176) 11.5 % HEMOGLOBIN [id number] 00:00:00 Test Item Value Reference Range Interpretation Comments HEMOGLOBIN A1c (test code = 06288) 11.5 % HEMOGLOBIN [id number] 00:00:00 Test Item Value Reference Range Interpretation Comments HEMOGLOBIN A1c (test code = 81763) 11.5 % MICROALBUMIN/CREATININE, RANDOM AND [id number] 00:00:00 Test Item Value Reference Range Interpretation Comments CREATININE, URINE, CONC. (test 92.4 MG/DL code = 2072) ALBUMIN, URINE, RANDOM (test code 158.5 MG/DL = 12368) CALC ALBUMIN/CREAT, RND (test 1715 MG/G code = 11580) MICROALBUMIN/CREATININE, RANDOM AND [id number] 00:00:00 Test Item Value Reference Range Interpretation Comments CREATININE, URINE, CONC. (test 92.4 MG/DL code = 2072) ALBUMIN, URINE, RANDOM (test code 158.5 MG/DL = 09123) CALC ALBUMIN/CREAT, RND (test 1715 MG/G code = 97078) LIPID [id number] 00:00:00 Test Item Value Reference Range Interpretation Comments CHOLESTEROL (test code = 2210) 354 MG/DL TRIGLYCERIDES (test code = 2232) 2608 MG/DL HDL CHOLESTEROL (test code = 19 MG/DL 2220) CALC LDL CHOL (test code = 2237) NOTE MG/DL RISK RATIO LDL/HDL (test code = (NOTE) RATIO 2238) LIPID [id number] 00:00:00 Test Item Value Reference Range Interpretation Comments CHOLESTEROL (test code = 2210) 354 MG/DL TRIGLYCERIDES (test code = 2232) 2608 MG/DL HDL CHOLESTEROL (test code = 19 MG/DL 2220) CALC LDL CHOL (test code = 2237) NOTE MG/DL RISK RATIO LDL/HDL (test code = (NOTE) RATIO 2238) HEMOGLOBIN [id number] 00:00:00 Test Item Value Reference Range Interpretation Comments HEMOGLOBIN A1c (test code = 53392) 11.5 % HEMOGLOBIN [id number] 00:00:00 Test Item Value Reference Range Interpretation Comments HEMOGLOBIN A1c (test code = 61941) 11.5 % HEMOGLOBIN [id number] 00:00:00 Test Item Value Reference Range Interpretation Comments HEMOGLOBIN A1c (test code = 01990) 11.5 % MICROALBUMIN/CREATININE, RANDOM AND [id number] 00:00:00 Test Item Value Reference Range Interpretation Comments CREATININE, URINE, CONC. (test 92.4 MG/DL code = 2072) ALBUMIN, URINE, RANDOM (test code 158.5 MG/DL = 72778) CALC ALBUMIN/CREAT, RND (test 1715 MG/G code = 47821) MICROALBUMIN/CREATININE, RANDOM AND [id number] 00:00:00 Test Item Value Reference Range Interpretation Comments CREATININE, URINE, CONC. (test 92.4 MG/DL code = 2072) ALBUMIN, URINE, RANDOM (test code 158.5 MG/DL = 49688) CALC ALBUMIN/CREAT, RND (test 1715 MG/G code = 82190) LIPID [id number] 00:00:00 Test Item Value Reference Range Interpretation Comments CHOLESTEROL (test code = 2210) 354 MG/DL TRIGLYCERIDES (test code = 2232) 2608 MG/DL HDL CHOLESTEROL (test code = 19 MG/DL 2220) CALC LDL CHOL (test code = 2237) NOTE MG/DL RISK RATIO LDL/HDL (test code = (NOTE) RATIO 2238) LIPID [id number] 00:00:00 Test Item Value Reference Range Interpretation Comments CHOLESTEROL (test code = 2210) 354 MG/DL TRIGLYCERIDES (test code = 2232) 2608 MG/DL HDL CHOLESTEROL (test code = 19 MG/DL 2220) CALC LDL CHOL (test code = 2237) NOTE MG/DL RISK RATIO LDL/HDL (test code = (NOTE) RATIO 2238) HEMOGLOBIN [id number] 00:00:00 Test Item Value Reference Range Interpretation Comments HEMOGLOBIN A1c (test code = 39252) 11.5 % HEMOGLOBIN [id number] 00:00:00 Test Item Value Reference Range Interpretation Comments HEMOGLOBIN A1c (test code = 76911) 11.5 % HEMOGLOBIN [id number] 00:00:00 Test Item Value Reference Range Interpretation Comments HEMOGLOBIN A1c (test code = 64655) 11.5 % MICROALBUMIN/CREATININE, RANDOM AND [id number] 00:00:00 Test Item Value Reference Range Interpretation Comments CREATININE, URINE, CONC. (test 92.4 MG/DL code = 2072) ALBUMIN, URINE, RANDOM (test code 158.5 MG/DL = 89688) CALC ALBUMIN/CREAT, RND (test 1715 MG/G code = 18459) MICROALBUMIN/CREATININE, RANDOM AND [id number] 00:00:00 Test Item Value Reference Range Interpretation Comments CREATININE, URINE, CONC. (test 92.4 MG/DL code = 2072) ALBUMIN, URINE, RANDOM (test code 158.5 MG/DL = 88076) CALC ALBUMIN/CREAT, RND (test 1715 MG/G code = 63939) CULTURE, [id number] 00:00:00 Test Item Value Reference Range Interpretation Comments CULTURE, URINE (test SPECIMEN NUMBER: code = 54619) [id number] CULTURE, [id number] 00:00:00 Test Item Value Reference Range Interpretation Comments CULTURE, URINE (test SPECIMEN NUMBER: code = 34640) [id number] CULTURE, [id number] 00:00:00 Test Item Value Reference Range Interpretation Comments CULTURE, URINE (test SPECIMEN NUMBER: code = 35488) [id number] CULTURE, [id number] 00:00:00 Test Item Value Reference Range Interpretation Comments CULTURE, URINE (test SPECIMEN NUMBER: code = 99150) [id number] CULTURE, [id number] 00:00:00 Test Item Value Reference Range Interpretation Comments CULTURE, URINE (test SPECIMEN NUMBER: code = 31306) [id number] CULTURE, [id number] 00:00:00 Test Item Value Reference Range Interpretation Comments CULTURE, URINE (test SPECIMEN NUMBER: code = 45062) [id number] CULTURE, [id number] 00:00:00 Test Item Value Reference Range Interpretation Comments CULTURE, URINE (test SPECIMEN NUMBER: code = 35544) [id number] CULTURE, [id number] 00:00:00 Test Item Value Reference Range Interpretation Comments CULTURE, URINE (test SPECIMEN NUMBER: code = 43200) [id number] CULTURE, [id number] 00:00:00 Test Item Value Reference Range Interpretation Comments CULTURE, URINE (test SPECIMEN NUMBER: code = 10624) [id number] CULTURE, [id number] 00:00:00 Test Item Value Reference Range Interpretation Comments CULTURE, URINE (test SPECIMEN NUMBER: code = 14089) [id number] CULTURE, [id number] 00:00:00 Test Item Value Reference Range Interpretation Comments CULTURE, URINE (test SPECIMEN NUMBER: code = 54014) [id number] CULTURE, [id number] 00:00:00 Test Item Value Reference Range Interpretation Comments CULTURE, URINE (test SPECIMEN NUMBER: code = 61494) [id number] CULTURE, [id number] 00:00:00 Test Item Value Reference Range Interpretation Comments CULTURE, URINE (test SPECIMEN NUMBER: code = 57791) [id number] CULTURE, [id number] 00:00:00 Test Item Value Reference Range Interpretation Comments CULTURE, URINE (test SPECIMEN NUMBER: code = 63910) [id number] CULTURE, [id number] 00:00:00 Test Item Value Reference Range Interpretation Comments CULTURE, URINE (test SPECIMEN NUMBER: code = 99003) [id number] CULTURE, [id number] 00:00:00 Test Item Value Reference Range Interpretation Comments CULTURE, URINE (test SPECIMEN NUMBER: code = 54637) [id number] CULTURE, [id number] 00:00:00 Test Item Value Reference Range Interpretation Comments CULTURE, URINE (test SPECIMEN NUMBER: code = 30234) [id number] CULTURE, [id number] 00:00:00 Test Item Value Reference Range Interpretation Comments CULTURE, URINE (test SPECIMEN NUMBER: code = 03087) [id number] CULTURE, [id number] 00:00:00 Test Item Value Reference Range Interpretation Comments CULTURE, URINE (test SPECIMEN NUMBER: code = 42061) [id number] CULTURE, [id number] 00:00:00 Test Item Value Reference Range Interpretation Comments CULTURE, URINE (test SPECIMEN NUMBER: code = 36459) [id number] CULTURE, [id number] 00:00:00 Test Item Value Reference Range Interpretation Comments CULTURE, URINE (test SPECIMEN NUMBER: code = 42883) [id number] VAGINAL PATHOGENS DNA [id number] 00:00:00 Test Item Value Reference Range Interpretation Comments ANDIE SPECIES (test code = ) POSITIVE G. VAGINALIS (test code = ) NEGATIVE T. VAGINALIS (test code = ) NEGATIVE VAGINAL PATHOGENS DNA [id number] 00:00:00 Test Item Value Reference Range Interpretation Comments ANDIE SPECIES (test code = ) POSITIVE G. VAGINALIS (test code = 79523) NEGATIVE T. VAGINALIS (test code = 69163) NEGATIVE VAGINAL PATHOGENS DNA [id number] 00:00:00 Test Item Value Reference Range Interpretation Comments ANDIE SPECIES (test code = 76349) POSITIVE G. VAGINALIS (test code = 67382) NEGATIVE T. VAGINALIS (test code = 54220) NEGATIVE VAGINAL PATHOGENS DNA [id number] 00:00:00 Test Item Value Reference Range Interpretation Comments ANDIE SPECIES (test code = 82586) POSITIVE G. VAGINALIS (test code = 23660) NEGATIVE T. VAGINALIS (test code = 12082) NEGATIVE VAGINAL PATHOGENS DNA [id number] 00:00:00 Test Item Value Reference Range Interpretation Comments ANDIE SPECIES (test code = 48455) POSITIVE G. VAGINALIS (test code = 02150) NEGATIVE T. VAGINALIS (test code = 51696) NEGATIVE VAGINAL PATHOGENS DNA [id number] 00:00:00 Test Item Value Reference Range Interpretation Comments ANDIE SPECIES (test code = 77266) POSITIVE G. VAGINALIS (test code = 60594) NEGATIVE T. VAGINALIS (test code = 87180) NEGATIVE VAGINAL PATHOGENS DNA [id number] 00:00:00 Test Item Value Reference Range Interpretation Comments ANDIE SPECIES (test code = 87464) POSITIVE G. VAGINALIS (test code = 55011) NEGATIVE T. VAGINALIS (test code = 08574) NEGATIVE VAGINAL PATHOGENS DNA [id number] 00:00:00 Test Item Value Reference Range Interpretation Comments ANDIE SPECIES (test code = 48281) POSITIVE G. VAGINALIS (test code = 01471) NEGATIVE T. VAGINALIS (test code = 04797) NEGATIVE VAGINAL PATHOGENS DNA [id number] 00:00:00 Test Item Value Reference Range Interpretation Comments ANDIE SPECIES (test code = 15112) POSITIVE G. VAGINALIS (test code = 10838) NEGATIVE T. VAGINALIS (test code = 73256) NEGATIVE VAGINAL PATHOGENS DNA [id number] 00:00:00 Test Item Value Reference Range Interpretation Comments ANDIE SPECIES (test code = 37647) POSITIVE G. VAGINALIS (test code = 24468) NEGATIVE T. VAGINALIS (test code = 69790) NEGATIVE VAGINAL PATHOGENS DNA [id number] 00:00:00 Test Item Value Reference Range Interpretation Comments ANDIE SPECIES (test code = 33568) POSITIVE G. VAGINALIS (test code = 41446) NEGATIVE T. VAGINALIS (test code = 54853) NEGATIVE VAGINAL PATHOGENS DNA [id number] 00:00:00 Test Item Value Reference Range Interpretation Comments ANDIE SPECIES (test code = 85746) POSITIVE G. VAGINALIS (test code = 28129) NEGATIVE T. VAGINALIS (test code = 79359) NEGATIVE VAGINAL PATHOGENS DNA [id number] 00:00:00 Test Item Value Reference Range Interpretation Comments ANDIE SPECIES (test code = 14542) POSITIVE G. VAGINALIS (test code = 33847) NEGATIVE T. VAGINALIS (test code = 94944) NEGATIVE VAGINAL PATHOGENS DNA [id number] 00:00:00 Test Item Value Reference Range Interpretation Comments ANDIE SPECIES (test code = 88612) POSITIVE G. VAGINALIS (test code = 43623) NEGATIVE T. VAGINALIS (test code = 86348) NEGATIVE VAGINAL PATHOGENS DNA [id number] 00:00:00 Test Item Value Reference Range Interpretation Comments ANDIE SPECIES (test code = 38675) POSITIVE G. VAGINALIS (test code = 97059) NEGATIVE T. VAGINALIS (test code = 69191) NEGATIVE VAGINAL PATHOGENS DNA [id number] 00:00:00 Test Item Value Reference Range Interpretation Comments ANDIE SPECIES (test code = 72501) POSITIVE G. VAGINALIS (test code = 48516) NEGATIVE T. VAGINALIS (test code = 68647) NEGATIVE VAGINAL PATHOGENS DNA [id number] 00:00:00 Test Item Value Reference Range Interpretation Comments ANDIE SPECIES (test code = 91635) POSITIVE G. VAGINALIS (test code = 18018) NEGATIVE T. VAGINALIS (test code = 44169) NEGATIVE VAGINAL PATHOGENS DNA [id number] 00:00:00 Test Item Value Reference Range Interpretation Comments ANDIE SPECIES (test code = 60161) POSITIVE G. VAGINALIS (test code = 87234) NEGATIVE T. VAGINALIS (test code = 99522) NEGATIVE VAGINAL PATHOGENS DNA [id number] 00:00:00 Test Item Value Reference Range Interpretation Comments ANDIE SPECIES (test code = 23550) POSITIVE G. VAGINALIS (test code = 43121) NEGATIVE T. VAGINALIS (test code = 31354) NEGATIVE VAGINAL PATHOGENS DNA [id number] 00:00:00 Test Item Value Reference Range Interpretation Comments ANDIE SPECIES (test code = 19561) POSITIVE G. VAGINALIS (test code = 99952) NEGATIVE T. VAGINALIS (test code = 55700) NEGATIVE VAGINAL PATHOGENS DNA [id number] 00:00:00 Test Item Value Reference Range Interpretation Comments ANDIE SPECIES (test code = 61262) POSITIVE G. VAGINALIS (test code = 02460) NEGATIVE T. VAGINALIS (test code = 98063) NEGATIVE VAGINAL PATHOGENS DNA [id number] 00:00:00 Test Item Value Reference Range Interpretation Comments ANDIE SPECIES (test code = 10296) NEGATIVE G. VAGINALIS (test code = 99099) NEGATIVE T. VAGINALIS (test code = 80267) NEGATIVE VAGINAL PATHOGENS DNA [id number] 00:00:00 Test Item Value Reference Range Interpretation Comments ANDIE SPECIES (test code = 96955) NEGATIVE G. VAGINALIS (test code = 62723) NEGATIVE T. VAGINALIS (test code = 20451) NEGATIVE VAGINAL PATHOGENS DNA [id number] 00:00:00 Test Item Value Reference Range Interpretation Comments ANDIE SPECIES (test code = 81694) NEGATIVE G. VAGINALIS (test code = 23491) NEGATIVE T. VAGINALIS (test code = 35542) NEGATIVE VAGINAL PATHOGENS DNA [id number] 00:00:00 Test Item Value Reference Range Interpretation Comments ANDIE SPECIES (test code = 51106) NEGATIVE G. VAGINALIS (test code = 26453) NEGATIVE T. VAGINALIS (test code = 31060) NEGATIVE VAGINAL PATHOGENS DNA [id number] 00:00:00 Test Item Value Reference Range Interpretation Comments ANDIE SPECIES (test code = 01674) NEGATIVE G. VAGINALIS (test code = 29447) NEGATIVE T. VAGINALIS (test code = 36594) NEGATIVE VAGINAL PATHOGENS DNA [id number] 00:00:00 Test Item Value Reference Range Interpretation Comments ANDIE SPECIES (test code = 83523) NEGATIVE G. VAGINALIS (test code = 75760) NEGATIVE T. VAGINALIS (test code = 87779) NEGATIVE VAGINAL PATHOGENS DNA [id number] 00:00:00 Test Item Value Reference Range Interpretation Comments ANDIE SPECIES (test code = 29189) NEGATIVE G. VAGINALIS (test code = 60415) NEGATIVE T. VAGINALIS (test code = 14349) NEGATIVE VAGINAL PATHOGENS DNA [id number] 00:00:00 Test Item Value Reference Range Interpretation Comments ANDIE SPECIES (test code = 10908) NEGATIVE G. VAGINALIS (test code = 17061) NEGATIVE T. VAGINALIS (test code = ) NEGATIVE VAGINAL PATHOGENS DNA [id number] 00:00:00 Test Item Value Reference Range Interpretation Comments ANDIE SPECIES (test code = 09769) NEGATIVE G. VAGINALIS (test code = 32165) NEGATIVE T. VAGINALIS (test code = 64935) NEGATIVE VAGINAL PATHOGENS DNA [id number] 00:00:00 Test Item Value Reference Range Interpretation Comments ANDIE SPECIES (test code = 82027) NEGATIVE G. VAGINALIS (test code = 72713) NEGATIVE T. VAGINALIS (test code = 99594) NEGATIVE VAGINAL PATHOGENS DNA [id number] 00:00:00 Test Item Value Reference Range Interpretation Comments ANDIE SPECIES (test code = 86878) NEGATIVE G. VAGINALIS (test code = 15733) NEGATIVE T. VAGINALIS (test code = 82868) NEGATIVE VAGINAL PATHOGENS DNA [id number] 00:00:00 Test Item Value Reference Range Interpretation Comments ANDIE SPECIES (test code = 14136) NEGATIVE G. VAGINALIS (test code = 86127) NEGATIVE T. VAGINALIS (test code = 58489) NEGATIVE VAGINAL PATHOGENS DNA [id number] 00:00:00 Test Item Value Reference Range Interpretation Comments ANDIE SPECIES (test code = 68914) NEGATIVE G. VAGINALIS (test code = 16450) NEGATIVE T. VAGINALIS (test code = 81380) NEGATIVE VAGINAL PATHOGENS DNA [id number] 00:00:00 Test Item Value Reference Range Interpretation Comments ANDIE SPECIES (test code = 86296) NEGATIVE G. VAGINALIS (test code = 90741) NEGATIVE T. VAGINALIS (test code = 80931) NEGATIVE VAGINAL PATHOGENS DNA [id number] 00:00:00 Test Item Value Reference Range Interpretation Comments ANDIE SPECIES (test code = 85679) NEGATIVE G. VAGINALIS (test code = 69486) NEGATIVE T. VAGINALIS (test code = 08399) NEGATIVE VAGINAL PATHOGENS DNA [id number] 00:00:00 Test Item Value Reference Range Interpretation Comments ANDIE SPECIES (test code = 50818) NEGATIVE G. VAGINALIS (test code = 42424) NEGATIVE T. VAGINALIS (test code = 95314) NEGATIVE VAGINAL PATHOGENS DNA [id number] 00:00:00 Test Item Value Reference Range Interpretation Comments ANDIE SPECIES (test code = 87898) NEGATIVE G. VAGINALIS (test code = 80353) NEGATIVE T. VAGINALIS (test code = 95626) NEGATIVE VAGINAL PATHOGENS DNA [id number] 00:00:00 Test Item Value Reference Range Interpretation Comments ANDIE SPECIES (test code = 90904) NEGATIVE G. VAGINALIS (test code = 48531) NEGATIVE T. VAGINALIS (test code = 53214) NEGATIVE VAGINAL PATHOGENS DNA [id number] 00:00:00 Test Item Value Reference Range Interpretation Comments ANDIE SPECIES (test code = 80826) NEGATIVE G. VAGINALIS (test code = 87633) NEGATIVE T. VAGINALIS (test code = 07939) NEGATIVE VAGINAL PATHOGENS DNA [id number] 00:00:00 Test Item Value Reference Range Interpretation Comments ANDIE SPECIES (test code = 54357) NEGATIVE G. VAGINALIS (test code = 81102) NEGATIVE T. VAGINALIS (test code = 22687) NEGATIVE VAGINAL PATHOGENS DNA [id number] 00:00:00 Test Item Value Reference Range Interpretation Comments ANDIE SPECIES (test code = 15506) NEGATIVE G. VAGINALIS (test code = 53210) NEGATIVE T. VAGINALIS (test code = 05997) NEGATIVE VAGINAL PATHOGENS DNA [id number] 00:00:00 Test Item Value Reference Range Interpretation Comments ANDIE SPECIES (test code = 04662) NEGATIVE G. VAGINALIS (test code = 52488) POSITIVE T. VAGINALIS (test code = 79951) NEGATIVE VAGINAL PATHOGENS DNA [id number] 00:00:00 Test Item Value Reference Range Interpretation Comments ANDIE SPECIES (test code = 85431) NEGATIVE G. VAGINALIS (test code = 49382) POSITIVE T. VAGINALIS (test code = 82944) NEGATIVE VAGINAL PATHOGENS DNA [id number] 00:00:00 Test Item Value Reference Range Interpretation Comments ANDIE SPECIES (test code = 38574) NEGATIVE G. VAGINALIS (test code = 74210) POSITIVE T. VAGINALIS (test code = 19753) NEGATIVE VAGINAL PATHOGENS DNA [id number] 00:00:00 Test Item Value Reference Range Interpretation Comments ANDIE SPECIES (test code = 96530) NEGATIVE G. VAGINALIS (test code = 12388) POSITIVE T. VAGINALIS (test code = 47937) NEGATIVE VAGINAL PATHOGENS DNA [id number] 00:00:00 Test Item Value Reference Range Interpretation Comments ANDIE SPECIES (test code = 57561) NEGATIVE G. VAGINALIS (test code = 49519) POSITIVE T. VAGINALIS (test code = 38043) NEGATIVE VAGINAL PATHOGENS DNA [id number] 00:00:00 Test Item Value Reference Range Interpretation Comments ANDIE SPECIES (test code = 16544) NEGATIVE G. VAGINALIS (test code = 11835) POSITIVE T. VAGINALIS (test code = 72384) NEGATIVE VAGINAL PATHOGENS DNA [id number] 00:00:00 Test Item Value Reference Range Interpretation Comments ANDIE SPECIES (test code = 62614) NEGATIVE G. VAGINALIS (test code = 25675) POSITIVE T. VAGINALIS (test code = 64021) NEGATIVE VAGINAL PATHOGENS DNA [id number] 00:00:00 Test Item Value Reference Range Interpretation Comments ANDIE SPECIES (test code = 57746) NEGATIVE G. VAGINALIS (test code = 90997) POSITIVE T. VAGINALIS (test code = 95283) NEGATIVE VAGINAL PATHOGENS DNA [id number] 00:00:00 Test Item Value Reference Range Interpretation Comments ANDIE SPECIES (test code = 74849) NEGATIVE G. VAGINALIS (test code = 25424) POSITIVE T. VAGINALIS (test code = 49454) NEGATIVE VAGINAL PATHOGENS DNA [id number] 00:00:00 Test Item Value Reference Range Interpretation Comments ANDIE SPECIES (test code = 98279) NEGATIVE G. VAGINALIS (test code = 08026) POSITIVE T. VAGINALIS (test code = 48514) NEGATIVE VAGINAL PATHOGENS DNA [id number] 00:00:00 Test Item Value Reference Range Interpretation Comments ANDIE SPECIES (test code = 97320) NEGATIVE G. VAGINALIS (test code = 44277) POSITIVE T. VAGINALIS (test code = 86118) NEGATIVE VAGINAL PATHOGENS DNA [id number] 00:00:00 Test Item Value Reference Range Interpretation Comments ANDIE SPECIES (test code = 73249) NEGATIVE G. VAGINALIS (test code = 67652) POSITIVE T. VAGINALIS (test code = 81578) NEGATIVE VAGINAL PATHOGENS DNA [id number] 00:00:00 Test Item Value Reference Range Interpretation Comments ANDIE SPECIES (test code = 10993) NEGATIVE G. VAGINALIS (test code = 31981) POSITIVE T. VAGINALIS (test code = 76906) NEGATIVE VAGINAL PATHOGENS DNA [id number] 00:00:00 Test Item Value Reference Range Interpretation Comments ANDIE SPECIES (test code = 01261) NEGATIVE G. VAGINALIS (test code = 57096) POSITIVE T. VAGINALIS (test code = 21373) NEGATIVE VAGINAL PATHOGENS DNA [id number] 00:00:00 Test Item Value Reference Range Interpretation Comments ANDIE SPECIES (test code = 08410) NEGATIVE G. VAGINALIS (test code = 26731) POSITIVE T. VAGINALIS (test code = 29581) NEGATIVE VAGINAL PATHOGENS DNA [id number] 00:00:00 Test Item Value Reference Range Interpretation Comments ANDIE SPECIES (test code = 75205) NEGATIVE G. VAGINALIS (test code = 17276) POSITIVE T. VAGINALIS (test code = 68584) NEGATIVE VAGINAL PATHOGENS DNA [id number] 00:00:00 Test Item Value Reference Range Interpretation Comments ANDIE SPECIES (test code = 06020) NEGATIVE G. VAGINALIS (test code = 52774) POSITIVE T. VAGINALIS (test code = 07175) NEGATIVE VAGINAL PATHOGENS DNA [id number] 00:00:00 Test Item Value Reference Range Interpretation Comments ANDIE SPECIES (test code = 91740) NEGATIVE G. VAGINALIS (test code = 36306) POSITIVE T. VAGINALIS (test code = 82500) NEGATIVE VAGINAL PATHOGENS DNA [id number] 00:00:00 Test Item Value Reference Range Interpretation Comments ANDIE SPECIES (test code = 16164) NEGATIVE G. VAGINALIS (test code = 12179) POSITIVE T. VAGINALIS (test code = 51124) NEGATIVE VAGINAL PATHOGENS DNA [id number] 00:00:00 Test Item Value Reference Range Interpretation Comments ANDIE SPECIES (test code = 26923) NEGATIVE G. VAGINALIS (test code = 79965) POSITIVE T. VAGINALIS (test code = 22093) NEGATIVE VAGINAL PATHOGENS DNA [id number] 00:00:00 Test Item Value Reference Range Interpretation Comments ANDIE SPECIES (test code = 84741) NEGATIVE G. VAGINALIS (test code = 05058) POSITIVE T. VAGINALIS (test code = 43020) NEGATIVE COMPREHENSIVE METABOLIC [id number] 00:00:00 Test Item Value Reference Range Interpretation Comments GLUCOSE (test code = 2217) 353 MG/DL BUN (test code = 2208) 27 MG/DL CREATININE (test code = 2214) 0.90 MG/DL eGFR AMER. (test code 92 ML/MIN/1.73 = 30716) eGFR NON- AMER. (test 79 ML/MIN/1.73 code = 26079) CALC BUN/CREAT (test code = 30 RATIO [...] code = 2219) 18 U/L COMPREHENSIVE METABOLIC [id number] 00:00:00 Test Item Value Reference Range Interpretation Comments GLUCOSE (test code = 2217) 353 MG/DL BUN (test code = 2208) 27 MG/DL CREATININE (test code = 2214) 0.90 MG/DL eGFR AMER. (test code 92 ML/MIN/1.73 = 36701) eGFR NON- AMER. (test 79 ML/MIN/1.73 code = 58803) CALC BUN/CREAT (test code = 30 RATIO [...] (test code = 2219) 18 U/L LIPID [id number] 00:00:00 Test Item Value Reference Range Interpretation Comments CHOLESTEROL (test code = 2210) 412 MG/DL TRIGLYCERIDES (test code = 2232) 2520 MG/DL HDL CHOLESTEROL (test code = 16 MG/DL 2220) CALC LDL CHOL (test code = 2237) NOTE MG/DL RISK RATIO LDL/HDL (test code = (NOTE) RATIO 2238) LIPID [id number] 00:00:00 Test Item Value Reference Range Interpretation Comments CHOLESTEROL (test code = 2210) 412 MG/DL TRIGLYCERIDES (test code = 2232) 2520 MG/DL HDL CHOLESTEROL (test code = 16 MG/DL 2220) CALC LDL CHOL (test code = 2237) NOTE MG/DL RISK RATIO LDL/HDL (test code = (NOTE) RATIO 2238) HEMOGLOBIN [id number] 00:00:00 Test Item Value Reference Range Interpretation Comments HEMOGLOBIN A1c (test code = 39222) 10.7 % HEMOGLOBIN [id number] 00:00:00 Test Item Value Reference Range Interpretation Comments HEMOGLOBIN A1c (test code = 83901) 10.7 % HEMOGLOBIN [id number] 00:00:00 Test Item Value Reference Range Interpretation Comments HEMOGLOBIN A1c (test code = 98070) 10.7 % [id number] 00:00:00 Test Item Value Reference Range Interpretation Comments TSH, THIRD GENERATION (test code 0.777 UIU/ML = 2821) [id number] 00:00:00 Test Item Value Reference Range Interpretation Comments TSH, THIRD GENERATION (test code 0.777 UIU/ML = 2821) [id number] 00:00:00 Test Item Value Reference Range Interpretation Comments TSH, THIRD GENERATION (test code 0.777 UIU/ML = 2821) MICROALBUMIN/CREATININE, RANDOM AND [id number] 00:00:00 Test Item Value Reference Range Interpretation Comments CREATININE, URINE, CONC. (test 127.3 MG/DL code = 2072) ALBUMIN, URINE, RANDOM (test code 65.2 MG/DL = 11088) CALC ALBUMIN/CREAT, RND (test 512 MG/G code = 79577) MICROALBUMIN/CREATININE, RANDOM AND [id number] 00:00:00 Test Item Value Reference Range Interpretation Comments CREATININE, URINE, CONC. (test 127.3 MG/DL code = 2072) ALBUMIN, URINE, RANDOM (test code 65.2 MG/DL = 27450) CALC ALBUMIN/CREAT, RND (test 512 MG/G code = 70300) COMPREHENSIVE METABOLIC [id number] 00:00:00 Test Item Value Reference Range Interpretation Comments GLUCOSE (test code = 2217) 353 MG/DL BUN (test code = 2208) 27 MG/DL CREATININE (test code = 2214) 0.90 MG/DL eGFR AMER. (test code 92 ML/MIN/1.73 = 09870) eGFR NON- AMER. (test 79 ML/MIN/1.73 code = 35671) CALC BUN/CREAT (test code = 30 RATIO [...] code = 2219) 18 U/L COMPREHENSIVE METABOLIC [id number] 00:00:00 Test Item Value Reference Range Interpretation Comments GLUCOSE (test code = 2217) 353 MG/DL BUN (test code = 2208) 27 MG/DL CREATININE (test code = 2214) 0.90 MG/DL eGFR AMER. (test code 92 ML/MIN/1.73 = 87101) eGFR NON- AMER. (test 79 ML/MIN/1.73 code = 05117) CALC BUN/CREAT (test code = 30 RATIO [...] (test code = 2219) 18 U/L LIPID [id number] 00:00:00 Test Item Value Reference Range Interpretation Comments CHOLESTEROL (test code = 2210) 412 MG/DL TRIGLYCERIDES (test code = 2232) 2520 MG/DL HDL CHOLESTEROL (test code = 16 MG/DL 2220) CALC LDL CHOL (test code = 2237) NOTE MG/DL RISK RATIO LDL/HDL (test code = (NOTE) RATIO 2238) LIPID [id number] 00:00:00 Test Item Value Reference Range Interpretation Comments CHOLESTEROL (test code = 2210) 412 MG/DL TRIGLYCERIDES (test code = 2232) 2520 MG/DL HDL CHOLESTEROL (test code = 16 MG/DL 2220) CALC LDL CHOL (test code = 2237) NOTE MG/DL RISK RATIO LDL/HDL (test code = (NOTE) RATIO 2238) HEMOGLOBIN [id number] 00:00:00 Test Item Value Reference Range Interpretation Comments HEMOGLOBIN A1c (test code = 99821) 10.7 % HEMOGLOBIN [id number] 00:00:00 Test Item Value Reference Range Interpretation Comments HEMOGLOBIN A1c (test code = 50419) 10.7 % HEMOGLOBIN [id number] 00:00:00 Test Item Value Reference Range Interpretation Comments HEMOGLOBIN A1c (test code = 60290) 10.7 % [id number] 00:00:00 Test Item Value Reference Range Interpretation Comments TSH, THIRD GENERATION (test code 0.777 UIU/ML = 2821) [id number] 00:00:00 Test Item Value Reference Range Interpretation Comments TSH, THIRD GENERATION (test code 0.777 UIU/ML = 2821) [id number] 00:00:00 Test Item Value Reference Range Interpretation Comments TSH, THIRD GENERATION (test code 0.777 UIU/ML = 2821) MICROALBUMIN/CREATININE, RANDOM AND [id number] 00:00:00 Test Item Value Reference Range Interpretation Comments CREATININE, URINE, CONC. (test 127.3 MG/DL code = 2072) ALBUMIN, URINE, RANDOM (test code 65.2 MG/DL = 32904) CALC ALBUMIN/CREAT, RND (test 512 MG/G code = 52594) MICROALBUMIN/CREATININE, RANDOM AND [id number] 00:00:00 Test Item Value Reference Range Interpretation Comments CREATININE, URINE, CONC. (test 127.3 MG/DL code = 2072) ALBUMIN, URINE, RANDOM (test code 65.2 MG/DL = 79324) CALC ALBUMIN/CREAT, RND (test 512 MG/G code = 67676) COMPREHENSIVE METABOLIC [id number] 00:00:00 Test Item Value Reference Range Interpretation Comments GLUCOSE (test code = 2217) 353 MG/DL BUN (test code = 2208) 27 MG/DL CREATININE (test code = 2214) 0.90 MG/DL eGFR AMER. (test code 92 ML/MIN/1.73 = 23218) eGFR NON- AMER. (test 79 ML/MIN/1.73 code = 11281) CALC BUN/CREAT (test code = 30 RATIO [...] code = 2219) 18 U/L COMPREHENSIVE METABOLIC [id number] 00:00:00 Test Item Value Reference Range Interpretation Comments GLUCOSE (test code = 2217) 353 MG/DL BUN (test code = 2208) 27 MG/DL CREATININE (test code = 2214) 0.90 MG/DL eGFR AMER. (test code 92 ML/MIN/1.73 = 51382) eGFR NON- AMER. (test 79 ML/MIN/1.73 code = 79764) CALC BUN/CREAT (test code = 30 RATIO [...] (test code = 2219) 18 U/L LIPID [id number] 00:00:00 Test Item Value Reference Range Interpretation Comments CHOLESTEROL (test code = 2210) 412 MG/DL TRIGLYCERIDES (test code = 2232) 2520 MG/DL HDL CHOLESTEROL (test code = 16 MG/DL 2220) CALC LDL CHOL (test code = 2237) NOTE MG/DL RISK RATIO LDL/HDL (test code = (NOTE) RATIO 2238) LIPID [id number] 00:00:00 Test Item Value Reference Range Interpretation Comments CHOLESTEROL (test code = 2210) 412 MG/DL TRIGLYCERIDES (test code = 2232) 2520 MG/DL HDL CHOLESTEROL (test code = 16 MG/DL 2220) CALC LDL CHOL (test code = 2237) NOTE MG/DL RISK RATIO LDL/HDL (test code = (NOTE) RATIO 2238) HEMOGLOBIN [id number] 00:00:00 Test Item Value Reference Range Interpretation Comments HEMOGLOBIN A1c (test code = 85711) 10.7 % HEMOGLOBIN [id number] 00:00:00 Test Item Value Reference Range Interpretation Comments HEMOGLOBIN A1c (test code = 51938) 10.7 % HEMOGLOBIN [id number] 00:00:00 Test Item Value Reference Range Interpretation Comments HEMOGLOBIN A1c (test code = 32553) 10.7 % [id number] 00:00:00 Test Item Value Reference Range Interpretation Comments TSH, THIRD GENERATION (test code 0.777 UIU/ML = 2821) [id number] 00:00:00 Test Item Value Reference Range Interpretation Comments TSH, THIRD GENERATION (test code 0.777 UIU/ML = 2821) [id number] 00:00:00 Test Item Value Reference Range Interpretation Comments TSH, THIRD GENERATION (test code 0.777 UIU/ML = 2821) MICROALBUMIN/CREATININE, RANDOM AND [id number] 00:00:00 Test Item Value Reference Range Interpretation Comments CREATININE, URINE, CONC. (test 127.3 MG/DL code = 2072) ALBUMIN, URINE, RANDOM (test code 65.2 MG/DL = 03320) CALC ALBUMIN/CREAT, RND (test 512 MG/G code = 87694) MICROALBUMIN/CREATININE, RANDOM AND [id number] 00:00:00 Test Item Value Reference Range Interpretation Comments CREATININE, URINE, CONC. (test 127.3 MG/DL code = 2072) ALBUMIN, URINE, RANDOM (test code 65.2 MG/DL = 52264) CALC ALBUMIN/CREAT, RND (test 512 MG/G code = 30742) COMPREHENSIVE METABOLIC [id number] 00:00:00 Test Item Value Reference Range Interpretation Comments GLUCOSE (test code = 2217) 353 MG/DL BUN (test code = 2208) 27 MG/DL CREATININE (test code = 2214) 0.90 MG/DL eGFR AMER. (test code 92 ML/MIN/1.73 = 38268) eGFR NON- AMER. (test 79 ML/MIN/1.73 code = 30231) CALC BUN/CREAT (test code = 30 RATIO [...] code = 2219) 18 U/L COMPREHENSIVE METABOLIC [id number] 00:00:00 Test Item Value Reference Range Interpretation Comments GLUCOSE (test code = 2217) 353 MG/DL BUN (test code = 2208) 27 MG/DL CREATININE (test code = 2214) 0.90 MG/DL eGFR AMER. (test code 92 ML/MIN/1.73 = 65870) eGFR NON- AMER. (test 79 ML/MIN/1.73 code = 59428) CALC BUN/CREAT (test code = 30 RATIO [...] (test code = 2219) 18 U/L LIPID [id number] 00:00:00 Test Item Value Reference Range Interpretation Comments CHOLESTEROL (test code = 2210) 412 MG/DL TRIGLYCERIDES (test code = 2232) 2520 MG/DL HDL CHOLESTEROL (test code = 16 MG/DL 2219) CALC LDL CHOL (test code = 2237) NOTE MG/DL RISK RATIO LDL/HDL (test code = (NOTE) RATIO 2238) LIPID [id number] 00:00:00 Test Item Value Reference Range Interpretation Comments CHOLESTEROL (test code = 2210) 412 MG/DL TRIGLYCERIDES (test code = 2232) 2520 MG/DL HDL CHOLESTEROL (test code = 16 MG/DL 2220) CALC LDL CHOL (test code = 2237) NOTE MG/DL RISK RATIO LDL/HDL (test code = (NOTE) RATIO 2238) HEMOGLOBIN [id number] 00:00:00 Test Item Value Reference Range Interpretation Comments HEMOGLOBIN A1c (test code = 29783) 10.7 % HEMOGLOBIN [id number] 00:00:00 Test Item Value Reference Range Interpretation Comments HEMOGLOBIN A1c (test code = 54808) 10.7 % HEMOGLOBIN [id number] 00:00:00 Test Item Value Reference Range Interpretation Comments HEMOGLOBIN A1c (test code = 92324) 10.7 % [id number] 00:00:00 Test Item Value Reference Range Interpretation Comments TSH, THIRD GENERATION (test code 0.777 UIU/ML = 2821) [id number] 00:00:00 Test Item Value Reference Range Interpretation Comments TSH, THIRD GENERATION (test code 0.777 UIU/ML = 2821) [id number] 00:00:00 Test Item Value Reference Range Interpretation Comments TSH, THIRD GENERATION (test code 0.777 UIU/ML = 2821) MICROALBUMIN/CREATININE, RANDOM AND [id number] 00:00:00 Test Item Value Reference Range Interpretation Comments CREATININE, URINE, CONC. (test 127.3 MG/DL code = 2072) ALBUMIN, URINE, RANDOM (test code 65.2 MG/DL = 84749) CALC ALBUMIN/CREAT, RND (test 512 MG/G code = 90071) MICROALBUMIN/CREATININE, RANDOM AND [id number] 00:00:00 Test Item Value Reference Range Interpretation Comments CREATININE, URINE, CONC. (test 127.3 MG/DL code = 2072) ALBUMIN, URINE, RANDOM (test code 65.2 MG/DL = 82998) CALC ALBUMIN/CREAT, RND (test 512 MG/G code = 12459) COMPREHENSIVE METABOLIC [id number] 00:00:00 Test Item Value Reference Range Interpretation Comments GLUCOSE (test code = 2217) 353 MG/DL BUN (test code = 2208) 27 MG/DL CREATININE (test code = 2214) 0.90 MG/DL eGFR AMER. (test code 92 ML/MIN/1.73 = 40135) eGFR NON- AMER. (test 79 ML/MIN/1.73 code = 14884) CALC BUN/CREAT (test code = 30 RATIO [...] code = 2219) 18 U/L COMPREHENSIVE METABOLIC [id number] 00:00:00 Test Item Value Reference Range Interpretation Comments GLUCOSE (test code = 2217) 353 MG/DL BUN (test code = 2208) 27 MG/DL CREATININE (test code = 2214) 0.90 MG/DL eGFR AMER. (test code 92 ML/MIN/1.73 = 96674) eGFR NON- AMER. (test 79 ML/MIN/1.73 code = 11454) CALC BUN/CREAT (test code = 30 RATIO [...] (test code = 2219) 18 U/L LIPID [id number] 00:00:00 Test Item Value Reference Range Interpretation Comments CHOLESTEROL (test code = 2210) 412 MG/DL TRIGLYCERIDES (test code = 2232) 2520 MG/DL HDL CHOLESTEROL (test code = 16 MG/DL 2220) CALC LDL CHOL (test code = 2237) NOTE MG/DL RISK RATIO LDL/HDL (test code = (NOTE) RATIO 2238) LIPID [id number] 00:00:00 Test Item Value Reference Range Interpretation Comments CHOLESTEROL (test code = 2210) 412 MG/DL TRIGLYCERIDES (test code = 2232) 2520 MG/DL HDL CHOLESTEROL (test code = 16 MG/DL 2220) CALC LDL CHOL (test code = 2237) NOTE MG/DL RISK RATIO LDL/HDL (test code = (NOTE) RATIO 2238) HEMOGLOBIN [id number] 00:00:00 Test Item Value Reference Range Interpretation Comments HEMOGLOBIN A1c (test code = 23734) 10.7 % HEMOGLOBIN [id number] 00:00:00 Test Item Value Reference Range Interpretation Comments HEMOGLOBIN A1c (test code = 27587) 10.7 % HEMOGLOBIN [id number] 00:00:00 Test Item Value Reference Range Interpretation Comments HEMOGLOBIN A1c (test code = 06118) 10.7 % [id number] 00:00:00 Test Item Value Reference Range Interpretation Comments TSH, THIRD GENERATION (test code 0.777 UIU/ML = 2821) [id number] 00:00:00 Test Item Value Reference Range Interpretation Comments TSH, THIRD GENERATION (test code 0.777 UIU/ML = 2821) [id number] 00:00:00 Test Item Value Reference Range Interpretation Comments TSH, THIRD GENERATION (test code 0.777 UIU/ML = 2821) MICROALBUMIN/CREATININE, RANDOM AND [id number] 00:00:00 Test Item Value Reference Range Interpretation Comments CREATININE, URINE, CONC. (test 127.3 MG/DL code = 2072) ALBUMIN, URINE, RANDOM (test code 65.2 MG/DL = 89875) CALC ALBUMIN/CREAT, RND (test 512 MG/G code = 39031) MICROALBUMIN/CREATININE, RANDOM AND [id number] 00:00:00 Test Item Value Reference Range Interpretation Comments CREATININE, URINE, CONC. (test 127.3 MG/DL code = 2072) ALBUMIN, URINE, RANDOM (test code 65.2 MG/DL = 87537) CALC ALBUMIN/CREAT, RND (test 512 MG/G code = 87357) COMPREHENSIVE METABOLIC [id number] 00:00:00 Test Item Value Reference Range Interpretation Comments GLUCOSE (test code = 2217) 353 MG/DL BUN (test code = 2208) 27 MG/DL CREATININE (test code = 2214) 0.90 MG/DL eGFR AMER. (test code 92 ML/MIN/1.73 = 90207) eGFR NON- AMER. (test 79 ML/MIN/1.73 code = 52897) CALC BUN/CREAT (test code = 30 RATIO 2235) SODIUM (test code = 2231) 135 MEQ/L POTASSIUM (test code = 2228) 3.8 MEQ/L CHLORIDE (test code = 2215) 91 MEQ/L CARBON DIOXIDE (test code = 23 MEQ/L 2206) CALCIUM (test code = 2209) 10.0 MG/DL PROTEIN, TOTAL (test code = 7.7 G/DL 2229) ALBUMIN (test code = 2201) 4.7 G/DL CALC GLOBULIN (test code = 3.0 G/DL 2240) CALC A/G RATIO (test code = 1.6 RATIO 2234) BILIRUBIN, TOTAL (test code = 0.3 MG/DL 220) ALKALINE PHOSPHATASE (test 59 U/L code = 2204) AST (test code = 2218) 13 U/L ALT (test code = 2219) 18 U/L COMPREHENSIVE METABOLIC [id number] 00:00:00 Test Item Value Reference Range Interpretation Comments GLUCOSE (test code = 2217) 353 MG/DL BUN (test code = 2208) 27 MG/DL CREATININE (test code = 2214) 0.90 MG/DL eGFR AMER. (test code 92 ML/MIN/1.73 = 40506) eGFR NON- AMER. (test 79 ML/MIN/1.73 code = 77499) CALC BUN/CREAT (test code = 30 RATIO [...] (test code = 2219) 18 U/L LIPID [id number] 00:00:00 Test Item Value Reference Range Interpretation Comments CHOLESTEROL (test code = 2210) 412 MG/DL TRIGLYCERIDES (test code = 2232) 2520 MG/DL HDL CHOLESTEROL (test code = 16 MG/DL 2220) CALC LDL CHOL (test code = 2237) NOTE MG/DL RISK RATIO LDL/HDL (test code = (NOTE) RATIO 2238) LIPID [id number] 00:00:00 Test Item Value Reference Range Interpretation Comments CHOLESTEROL (test code = 2210) 412 MG/DL TRIGLYCERIDES (test code = 2232) 2520 MG/DL HDL CHOLESTEROL (test code = 16 MG/DL 2220) CALC LDL CHOL (test code = 2237) NOTE MG/DL RISK RATIO LDL/HDL (test code = (NOTE) RATIO 2238) HEMOGLOBIN [id number] 00:00:00 Test Item Value Reference Range Interpretation Comments HEMOGLOBIN A1c (test code = 77037) 10.7 % HEMOGLOBIN [id number] 00:00:00 Test Item Value Reference Range Interpretation Comments HEMOGLOBIN A1c (test code = 87970) 10.7 % HEMOGLOBIN [id number] 00:00:00 Test Item Value Reference Range Interpretation Comments HEMOGLOBIN A1c (test code = 45186) 10.7 % [id number] 00:00:00 Test Item Value Reference Range Interpretation Comments TSH, THIRD GENERATION (test code 0.777 UIU/ML = 2821) [id number] 00:00:00 Test Item Value Reference Range Interpretation Comments TSH, THIRD GENERATION (test code 0.777 UIU/ML = 2821) [id number] 00:00:00 Test Item Value Reference Range Interpretation Comments TSH, THIRD GENERATION (test code 0.777 UIU/ML = 2821) MICROALBUMIN/CREATININE, RANDOM AND [id number] 00:00:00 Test Item Value Reference Range Interpretation Comments CREATININE, URINE, CONC. (test 127.3 MG/DL code = 2072) ALBUMIN, URINE, RANDOM (test code 65.2 MG/DL = 95030) CALC ALBUMIN/CREAT, RND (test 512 MG/G code = 53230) MICROALBUMIN/CREATININE, RANDOM AND [id number] 00:00:00 Test Item Value Reference Range Interpretation Comments CREATININE, URINE, CONC. (test 127.3 MG/DL code = 2072) ALBUMIN, URINE, RANDOM (test code 65.2 MG/DL = 08855) CALC ALBUMIN/CREAT, RND (test 512 MG/G code = 30991) COMPREHENSIVE METABOLIC [id number] 00:00:00 Test Item Value Reference Range Interpretation Comments GLUCOSE (test code = 2217) 353 MG/DL BUN (test code = 2208) 27 MG/DL CREATININE (test code = 2214) 0.90 MG/DL eGFR AMER. (test code 92 ML/MIN/1.73 = 94502) eGFR NON- AMER. (test 79 ML/MIN/1.73 code = 92080) CALC BUN/CREAT (test code = 30 RATIO [...] = 0.3 MG/DL 2207) ALKALINE PHOSPHATASE (test 59 U/L code = 2204) AST (test code = 2218) 13 U/L ALT (test code = 2219) 18 U/L COMPREHENSIVE METABOLIC [id number] 00:00:00 Test Item Value Reference Range Interpretation Comments GLUCOSE (test code = 2217) 353 MG/DL BUN (test code = 2208) 27 MG/DL CREATININE (test code = 2214) 0.90 MG/DL eGFR AMER. (test code 92 ML/MIN/1.73 = 23594) eGFR NON- AMER. (test 79 ML/MIN/1.73 code = 63272) CALC BUN/CREAT (test code = 30 RATIO [...] (test code = 2219) 18 U/L LIPID [id number] 00:00:00 Test Item Value Reference Range Interpretation Comments CHOLESTEROL (test code = 2210) 412 MG/DL TRIGLYCERIDES (test code = 2232) 2520 MG/DL HDL CHOLESTEROL (test code = 16 MG/DL 2220) CALC LDL CHOL (test code = 2237) NOTE MG/DL RISK RATIO LDL/HDL (test code = (NOTE) RATIO 2238) LIPID [id number] 00:00:00 Test Item Value Reference Range Interpretation Comments CHOLESTEROL (test code = 2210) 412 MG/DL TRIGLYCERIDES (test code = 2232) 2520 MG/DL HDL CHOLESTEROL (test code = 16 MG/DL 2220) CALC LDL CHOL (test code = 2237) NOTE MG/DL RISK RATIO LDL/HDL (test code = (NOTE) RATIO 2238) HEMOGLOBIN [id number] 00:00:00 Test Item Value Reference Range Interpretation Comments HEMOGLOBIN A1c (test code = 27301) 10.7 % HEMOGLOBIN [id number] 00:00:00 Test Item Value Reference Range Interpretation Comments HEMOGLOBIN A1c (test code = 85169) 10.7 % COMPREHENSIVE METABOLIC [id number] 00:00:00 Test Item Value Reference Range Interpretation Comments GLUCOSE (test code = 2217) 353 MG/DL BUN (test code = 2208) 27 MG/DL CREATININE (test code = 2214) 0.90 MG/DL eGFR AMER. (test code 92 ML/MIN/1.73 = 52116) eGFR NON- AMER. (test 79 ML/MIN/1.73 code = 85080) CALC BUN/CREAT (test code = 30 RATIO [...] ALT (test code = 2219) 18 U/L HEMOGLOBIN [id number] 00:00:00 Test Item Value Reference Range Interpretation Comments HEMOGLOBIN A1c (test code = 60136) 10.7 % [id number] 00:00:00 Test Item Value Reference Range Interpretation Comments TSH, THIRD GENERATION (test code 0.777 UIU/ML = 2821) [id number] 00:00:00 Test Item Value Reference Range Interpretation Comments TSH, THIRD GENERATION (test code 0.777 UIU/ML = 2821) [id number] 00:00:00 Test Item Value Reference Range Interpretation Comments TSH, THIRD GENERATION (test code 0.777 UIU/ML = 2821) MICROALBUMIN/CREATININE, RANDOM AND [id number] 00:00:00 Test Item Value Reference Range Interpretation Comments CREATININE, URINE, CONC. (test 127.3 MG/DL code = 2072) ALBUMIN, URINE, RANDOM (test code 65.2 MG/DL = 42559) CALC ALBUMIN/CREAT, RND (test 512 MG/G code = 32670) MICROALBUMIN/CREATININE, RANDOM AND [id number] 00:00:00 Test Item Value Reference Range Interpretation Comments CREATININE, URINE, CONC. (test 127.3 MG/DL code = 2072) ALBUMIN, URINE, RANDOM (test code 65.2 MG/DL = 29822) CALC ALBUMIN/CREAT, RND (test 512 MG/G code = 69976) LIPID [id number] 00:00:00 Test Item Value Reference Range Interpretation Comments CHOLESTEROL (test code = 2210) 412 MG/DL TRIGLYCERIDES (test code = 2232) 2520 MG/DL HDL CHOLESTEROL (test code = 16 MG/DL 2220) CALC LDL CHOL (test code = 2237) NOTE MG/DL RISK RATIO LDL/HDL (test code = (NOTE) RATIO 2238) HEMOGLOBIN [id number] 00:00:00 Test Item Value Reference Range Interpretation Comments HEMOGLOBIN A1c (test code = 16342) 10.7 % HEMOGLOBIN [id number] 00:00:00 Test Item Value Reference Range Interpretation Comments HEMOGLOBIN A1c (test code = 67997) 10.7 % COMPREHENSIVE METABOLIC [id number] 00:00:00 Test Item Value Reference Range Interpretation Comments GLUCOSE (test code = 2217) 353 MG/DL BUN (test code = 2208) 27 MG/DL CREATININE (test code = 2214) 0.90 MG/DL eGFR AMER. (test code 92 ML/MIN/1.73 = 00623) eGFR NON- AMER. (test 79 ML/MIN/1.73 code = 82144) CALC BUN/CREAT (test code = 30 RATIO [...] code = 2219) 18 U/L COMPREHENSIVE METABOLIC [id number] 00:00:00 Test Item Value Reference Range Interpretation Comments GLUCOSE (test code = 2217) 353 MG/DL BUN (test code = 2208) 27 MG/DL CREATININE (test code = 2214) 0.90 MG/DL eGFR AMER. (test code 92 ML/MIN/1.73 = 16508) eGFR NON- AMER. (test 79 ML/MIN/1.73 code = 07287) CALC BUN/CREAT (test code = 30 RATIO [...] ALT (test code = 2219) 18 U/L [id number] 00:00:00 Test Item Value Reference Range Interpretation Comments TSH, THIRD GENERATION (test code 0.777 UIU/ML = 2821) LIPID [id number] 00:00:00 Test Item Value Reference Range Interpretation Comments CHOLESTEROL (test code = 2210) 412 MG/DL TRIGLYCERIDES (test code = 2232) 2520 MG/DL HDL CHOLESTEROL (test code = 16 MG/DL 2220) CALC LDL CHOL (test code = 2237) NOTE MG/DL RISK RATIO LDL/HDL (test code = (NOTE) RATIO 2238) [id number] 00:00:00 Test Item Value Reference Range Interpretation Comments TSH, THIRD GENERATION (test code 0.777 UIU/ML = 2821) LIPID [id number] 00:00:00 Test Item Value Reference Range Interpretation Comments CHOLESTEROL (test code = 2210) 412 MG/DL TRIGLYCERIDES (test code = 2232) 2520 MG/DL HDL CHOLESTEROL (test code = 16 MG/DL 2220) CALC LDL CHOL (test code = 2237) NOTE MG/DL RISK RATIO LDL/HDL (test code = (NOTE) RATIO 2238) HEMOGLOBIN [id number] 00:00:00 Test Item Value Reference Range Interpretation Comments HEMOGLOBIN A1c (test code = 62966) 10.7 % HEMOGLOBIN [id number] 00:00:00 Test Item Value Reference Range Interpretation Comments HEMOGLOBIN A1c (test code = 06080) 10.7 % HEMOGLOBIN [id number] 00:00:00 Test Item Value Reference Range Interpretation Comments HEMOGLOBIN A1c (test code = 46218) 10.7 % [id number] 00:00:00 Test Item Value Reference Range Interpretation Comments TSH, THIRD GENERATION (test code 0.777 UIU/ML = 2821) [id number] 00:00:00 Test Item Value Reference Range Interpretation Comments TSH, THIRD GENERATION (test code 0.777 UIU/ML = 2821) MICROALBUMIN/CREATININE, RANDOM AND [id number] 00:00:00 Test Item Value Reference Range Interpretation Comments CREATININE, URINE, CONC. (test 127.3 MG/DL code = 2072) ALBUMIN, URINE, RANDOM (test code 65.2 MG/DL = 91663) CALC ALBUMIN/CREAT, RND (test 512 MG/G code = 56799) [id number] 00:00:00 Test Item Value Reference Range Interpretation Comments TSH, THIRD GENERATION (test code 0.777 UIU/ML = 2821) MICROALBUMIN/CREATININE, RANDOM AND [id number] 00:00:00 Test Item Value Reference Range Interpretation Comments CREATININE, URINE, CONC. (test 127.3 MG/DL code = 2072) ALBUMIN, URINE, RANDOM (test code 65.2 MG/DL = 25408) CALC ALBUMIN/CREAT, RND (test 512 MG/G code = 21459) MICROALBUMIN/CREATININE, RANDOM AND [id number] 00:00:00 Test Item Value Reference Range Interpretation Comments CREATININE, URINE, CONC. (test 127.3 MG/DL code = 2072) ALBUMIN, URINE, RANDOM (test code 65.2 MG/DL = 31318) CALC ALBUMIN/CREAT, RND (test 512 MG/G code = 15355) COMPREHENSIVE METABOLIC [id number] 00:00:00 Test Item Value Reference Range Interpretation Comments GLUCOSE (test code = 2217) 353 MG/DL BUN (test code = 2208) 27 MG/DL CREATININE (test code = 2214) 0.90 MG/DL eGFR AMER. (test code 92 ML/MIN/1.73 = 41455) eGFR NON- AMER. (test 79 ML/MIN/1.73 code = 02006) CALC BUN/CREAT (test code = 30 RATIO [...] code = 2219) 18 U/L COMPREHENSIVE METABOLIC [id number] 00:00:00 Test Item Value Reference Range Interpretation Comments GLUCOSE (test code = 2217) 353 MG/DL BUN (test code = 2208) 27 MG/DL CREATININE (test code = 2214) 0.90 MG/DL eGFR AMER. (test code 92 ML/MIN/1.73 = 16895) eGFR NON- AMER. (test 79 ML/MIN/1.73 code = 77418) CALC BUN/CREAT (test code = 30 RATIO [...] (test code = 2219) 18 U/L LIPID [id number] 00:00:00 Test Item Value Reference Range Interpretation Comments CHOLESTEROL (test code = 2210) 412 MG/DL TRIGLYCERIDES (test code = 2232) 2520 MG/DL HDL CHOLESTEROL (test code = 16 MG/DL 2220) CALC LDL CHOL (test code = 2237) NOTE MG/DL RISK RATIO LDL/HDL (test code = (NOTE) RATIO 2238) LIPID [id number] 00:00:00 Test Item Value Reference Range Interpretation Comments CHOLESTEROL (test code = 2210) 412 MG/DL TRIGLYCERIDES (test code = 2232) 2520 MG/DL HDL CHOLESTEROL (test code = 16 MG/DL 2220) CALC LDL CHOL (test code = 2237) NOTE MG/DL RISK RATIO LDL/HDL (test code = (NOTE) RATIO 2238) HEMOGLOBIN [id number] 00:00:00 Test Item Value Reference Range Interpretation Comments HEMOGLOBIN A1c (test code = 67953) 10.7 % HEMOGLOBIN [id number] 00:00:00 Test Item Value Reference Range Interpretation Comments HEMOGLOBIN A1c (test code = 27610) 10.7 % HEMOGLOBIN [id number] 00:00:00 Test Item Value Reference Range Interpretation Comments HEMOGLOBIN A1c (test code = 77658) 10.7 % [id number] 00:00:00 Test Item Value Reference Range Interpretation Comments TSH, THIRD GENERATION (test code 0.777 UIU/ML = 2821) [id number] 00:00:00 Test Item Value Reference Range Interpretation Comments TSH, THIRD GENERATION (test code 0.777 UIU/ML = 2821) [id number] 00:00:00 Test Item Value Reference Range Interpretation Comments TSH, THIRD GENERATION (test code 0.777 UIU/ML = 2821) MICROALBUMIN/CREATININE, RANDOM AND [id number] 00:00:00 Test Item Value Reference Range Interpretation Comments CREATININE, URINE, CONC. (test 127.3 MG/DL code = 2072) ALBUMIN, URINE, RANDOM (test code 65.2 MG/DL = 73550) CALC ALBUMIN/CREAT, RND (test 512 MG/G code = 78626) MICROALBUMIN/CREATININE, RANDOM AND [id number] 00:00:00 Test Item Value Reference Range Interpretation Comments CREATININE, URINE, CONC. (test 127.3 MG/DL code = 2072) ALBUMIN, URINE, RANDOM (test code 65.2 MG/DL = 19488) CALC ALBUMIN/CREAT, RND (test 512 MG/G code = 39742) COMPREHENSIVE METABOLIC [id number] 00:00:00 Test Item Value Reference Range Interpretation Comments GLUCOSE (test code = 2217) 353 MG/DL BUN (test code = 2208) 27 MG/DL CREATININE (test code = 2214) 0.90 MG/DL eGFR AMER. (test code 92 ML/MIN/1.73 = 94817) eGFR NON- AMER. (test 79 ML/MIN/1.73 code = 37198) CALC BUN/CREAT (test code = 30 RATIO [...] BILIRUBIN, TOTAL (test code = 0.3 MG/DL 220) ALKALINE PHOSPHATASE (test 59 U/L code = 2204) AST (test code = 2218) 13 U/L ALT (test code = 2219) 18 U/L COMPREHENSIVE METABOLIC [id number] 00:00:00 Test Item Value Reference Range Interpretation Comments GLUCOSE (test code = 2217) 353 MG/DL BUN (test code = 2208) 27 MG/DL CREATININE (test code = 2214) 0.90 MG/DL eGFR AMER. (test code 92 ML/MIN/1.73 = 44263) eGFR NON- AMER. (test 79 ML/MIN/1.73 code = 56394) CALC BUN/CREAT (test code = 30 RATIO [...] = 0.3 MG/DL 2207) ALKALINE PHOSPHATASE (test 59 U/L code = 2204) AST (test code = 2218) 13 U/L ALT (test code = 2219) 18 U/L LIPID [id number] 00:00:00 Test Item Value Reference Range Interpretation Comments CHOLESTEROL (test code = 2210) 412 MG/DL TRIGLYCERIDES (test code = 2232) 2520 MG/DL HDL CHOLESTEROL (test code = 16 MG/DL 2220) CALC LDL CHOL (test code = 2237) NOTE MG/DL RISK RATIO LDL/HDL (test code = (NOTE) RATIO 2238) LIPID [id number] 00:00:00 Test Item Value Reference Range Interpretation Comments CHOLESTEROL (test code = 2210) 412 MG/DL TRIGLYCERIDES (test code = 2232) 2520 MG/DL HDL CHOLESTEROL (test code = 16 MG/DL 2220) CALC LDL CHOL (test code = 2237) NOTE MG/DL RISK RATIO LDL/HDL (test code = (NOTE) RATIO 2238) HEMOGLOBIN [id number] 00:00:00 Test Item Value Reference Range Interpretation Comments HEMOGLOBIN A1c (test code = 37106) 10.7 % HEMOGLOBIN [id number] 00:00:00 Test Item Value Reference Range Interpretation Comments HEMOGLOBIN A1c (test code = 09021) 10.7 % HEMOGLOBIN [id number] 00:00:00 Test Item Value Reference Range Interpretation Comments HEMOGLOBIN A1c (test code = 35816) 10.7 % [id number] 00:00:00 Test Item Value Reference Range Interpretation Comments TSH, THIRD GENERATION (test code 0.777 UIU/ML = 2821) [id number] 00:00:00 Test Item Value Reference Range Interpretation Comments TSH, THIRD GENERATION (test code 0.777 UIU/ML = 2821) [id number] 00:00:00 Test Item Value Reference Range Interpretation Comments TSH, THIRD GENERATION (test code 0.777 UIU/ML = 2821) MICROALBUMIN/CREATININE, RANDOM AND [id number] 00:00:00 Test Item Value Reference Range Interpretation Comments CREATININE, URINE, CONC. (test 127.3 MG/DL code = 2072) ALBUMIN, URINE, RANDOM (test code 65.2 MG/DL = 30689) CALC ALBUMIN/CREAT, RND (test 512 MG/G code = 68408) MICROALBUMIN/CREATININE, RANDOM AND [id number] 00:00:00 Test Item Value Reference Range Interpretation Comments CREATININE, URINE, CONC. (test 127.3 MG/DL code = 2072) ALBUMIN, URINE, RANDOM (test code 65.2 MG/DL = 36451) CALC ALBUMIN/CREAT, RND (test 512 MG/G code = 02491) CULTURE, [id number] 00:00:00 Test Item Value Reference Range Interpretation Comments CULTURE, URINE (test SPECIMEN NUMBER: code = 50819) [id number] CULTURE, [id number] 00:00:00 Test Item Value Reference Range Interpretation Comments CULTURE, URINE (test SPECIMEN NUMBER: code = 53340) [id number] CULTURE, [id number] 00:00:00 Test Item Value Reference Range Interpretation Comments CULTURE, URINE (test SPECIMEN NUMBER: code = 43503) [id number] CULTURE, [id number] 00:00:00 Test Item Value Reference Range Interpretation Comments CULTURE, URINE (test SPECIMEN NUMBER: code = 02910) [id number] CULTURE, [id number] 00:00:00 Test Item Value Reference Range Interpretation Comments CULTURE, URINE (test SPECIMEN NUMBER: code = 57287) [id number] CULTURE, [id number] 00:00:00 Test Item Value Reference Range Interpretation Comments CULTURE, URINE (test SPECIMEN NUMBER: code = 43067) [id number] CULTURE, [id number] 00:00:00 Test Item Value Reference Range Interpretation Comments CULTURE, URINE (test SPECIMEN NUMBER: code = 29222) [id number] CULTURE, [id number] 00:00:00 Test Item Value Reference Range Interpretation Comments CULTURE, URINE (test SPECIMEN NUMBER: code = 88323) [id number] CULTURE, [id number] 00:00:00 Test Item Value Reference Range Interpretation Comments CULTURE, URINE (test SPECIMEN NUMBER: code = 94131) [id number] CULTURE, [id number] 00:00:00 Test Item Value Reference Range Interpretation Comments CULTURE, URINE (test SPECIMEN NUMBER: code = 30738) [id number] CULTURE, [id number] 00:00:00 Test Item Value Reference Range Interpretation Comments CULTURE, URINE (test SPECIMEN NUMBER: code = 77307) [id number] CULTURE, [id number] 00:00:00 Test Item Value Reference Range Interpretation Comments CULTURE, URINE (test SPECIMEN NUMBER: code = 44702) [id number] CULTURE, [id number] 00:00:00 Test Item Value Reference Range Interpretation Comments CULTURE, URINE (test SPECIMEN NUMBER: code = 04858) [id number] CULTURE, [id number] 00:00:00 Test Item Value Reference Range Interpretation Comments CULTURE, URINE (test SPECIMEN NUMBER: code = 59980) [id number] CULTURE, [id number] 00:00:00 Test Item Value Reference Range Interpretation Comments CULTURE, URINE (test SPECIMEN NUMBER: code = 70696) [id number] CULTURE, [id number] 00:00:00 Test Item Value Reference Range Interpretation Comments CULTURE, URINE (test SPECIMEN NUMBER: code = 09650) [id number] CULTURE, [id number] 00:00:00 Test Item Value Reference Range Interpretation Comments CULTURE, URINE (test SPECIMEN NUMBER: code = 39311) [id number] CULTURE, [id number] 00:00:00 Test Item Value Reference Range Interpretation Comments CULTURE, URINE (test SPECIMEN NUMBER: code = 67743) [id number] CULTURE, [id number] 00:00:00 Test Item Value Reference Range Interpretation Comments CULTURE, URINE (test SPECIMEN NUMBER: code = 73956) [id number] CULTURE, [id number] 00:00:00 Test Item Value Reference Range Interpretation Comments CULTURE, URINE (test SPECIMEN NUMBER: code = 34486) [id number] CULTURE, [id number] 00:00:00 Test Item Value Reference Range Interpretation Comments CULTURE, URINE (test SPECIMEN NUMBER: code = 65507) [id number] VAGINAL PATHOGENS DNA [id number] 00:00:00 Test Item Value Reference Range Interpretation Comments ANDIE SPECIES (test code = 08188) NEGATIVE G. VAGINALIS (test code = 28823) NEGATIVE T. VAGINALIS (test code = 92866) NEGATIVE VAGINAL PATHOGENS DNA [id number] 00:00:00 Test Item Value Reference Range Interpretation Comments ANDIE SPECIES (test code = 72748) NEGATIVE G. VAGINALIS (test code = 40512) NEGATIVE T. VAGINALIS (test code = 30433) NEGATIVE VAGINAL PATHOGENS DNA [id number] 00:00:00 Test Item Value Reference Range Interpretation Comments ANDIE SPECIES (test code = 54433) NEGATIVE G. VAGINALIS (test code = 14885) NEGATIVE T. VAGINALIS (test code = 60589) NEGATIVE VAGINAL PATHOGENS DNA [id number] 00:00:00 Test Item Value Reference Range Interpretation Comments ANDIE SPECIES (test code = 26523) NEGATIVE G. VAGINALIS (test code = 65041) NEGATIVE T. VAGINALIS (test code = 89738) NEGATIVE VAGINAL PATHOGENS DNA [id number] 00:00:00 Test Item Value Reference Range Interpretation Comments ANDIE SPECIES (test code = 58891) NEGATIVE G. VAGINALIS (test code = 68362) NEGATIVE T. VAGINALIS (test code = 89421) NEGATIVE VAGINAL PATHOGENS DNA [id number] 00:00:00 Test Item Value Reference Range Interpretation Comments ANDIE SPECIES (test code = 48271) NEGATIVE G. VAGINALIS (test code = 09346) NEGATIVE T. VAGINALIS (test code = 07552) NEGATIVE VAGINAL PATHOGENS DNA [id number] 00:00:00 Test Item Value Reference Range Interpretation Comments ANDIE SPECIES (test code = 31071) NEGATIVE G. VAGINALIS (test code = 40918) NEGATIVE T. VAGINALIS (test code = 77808) NEGATIVE VAGINAL PATHOGENS DNA [id number] 00:00:00 Test Item Value Reference Range Interpretation Comments ANDIE SPECIES (test code = 99090) NEGATIVE G. VAGINALIS (test code = 02611) NEGATIVE T. VAGINALIS (test code = 54085) NEGATIVE VAGINAL PATHOGENS DNA [id number] 00:00:00 Test Item Value Reference Range Interpretation Comments ANDIE SPECIES (test code = 31210) NEGATIVE G. VAGINALIS (test code = 78934) NEGATIVE T. VAGINALIS (test code = 72245) NEGATIVE VAGINAL PATHOGENS DNA [id number] 00:00:00 Test Item Value Reference Range Interpretation Comments ANDIE SPECIES (test code = 72999) NEGATIVE G. VAGINALIS (test code = 17307) NEGATIVE T. VAGINALIS (test code = 17976) NEGATIVE VAGINAL PATHOGENS DNA [id number] 00:00:00 Test Item Value Reference Range Interpretation Comments ANDIE SPECIES (test code = 33944) NEGATIVE G. VAGINALIS (test code = 81365) NEGATIVE T. VAGINALIS (test code = 77209) NEGATIVE VAGINAL PATHOGENS DNA [id number] 00:00:00 Test Item Value Reference Range Interpretation Comments ANDIE SPECIES (test code = 75951) NEGATIVE G. VAGINALIS (test code = 56230) NEGATIVE T. VAGINALIS (test code = 61058) NEGATIVE VAGINAL PATHOGENS DNA [id number] 00:00:00 Test Item Value Reference Range Interpretation Comments ANDIE SPECIES (test code = 19970) NEGATIVE G. VAGINALIS (test code = 86028) NEGATIVE T. VAGINALIS (test code = 83149) NEGATIVE VAGINAL PATHOGENS DNA [id number] 00:00:00 Test Item Value Reference Range Interpretation Comments ANDIE SPECIES (test code = 37901) NEGATIVE G. VAGINALIS (test code = 81435) NEGATIVE T. VAGINALIS (test code = 75978) NEGATIVE VAGINAL PATHOGENS DNA [id number] 00:00:00 Test Item Value Reference Range Interpretation Comments ANDIE SPECIES (test code = 18693) NEGATIVE G. VAGINALIS (test code = 90500) NEGATIVE T. VAGINALIS (test code = 38525) NEGATIVE VAGINAL PATHOGENS DNA [id number] 00:00:00 Test Item Value Reference Range Interpretation Comments ANDIE SPECIES (test code = 96886) NEGATIVE G. VAGINALIS (test code = 14515) NEGATIVE T. VAGINALIS (test code = 63925) NEGATIVE VAGINAL PATHOGENS DNA [id number] 00:00:00 Test Item Value Reference Range Interpretation Comments ANDIE SPECIES (test code = 29663) NEGATIVE G. VAGINALIS (test code = 18654) NEGATIVE T. VAGINALIS (test code = 25604) NEGATIVE VAGINAL PATHOGENS DNA [id number] 00:00:00 Test Item Value Reference Range Interpretation Comments ANDIE SPECIES (test code = 83683) NEGATIVE G. VAGINALIS (test code = 54048) NEGATIVE T. VAGINALIS (test code = 34760) NEGATIVE VAGINAL PATHOGENS DNA [id number] 00:00:00 Test Item Value Reference Range Interpretation Comments ANDIE SPECIES (test code = 49748) NEGATIVE G. VAGINALIS (test code = 48893) NEGATIVE T. VAGINALIS (test code = 95473) NEGATIVE VAGINAL PATHOGENS DNA [id number] 00:00:00 Test Item Value Reference Range Interpretation Comments ANDIE SPECIES (test code = 45652) NEGATIVE G. VAGINALIS (test code = 85147) NEGATIVE T. VAGINALIS (test code = 45645) NEGATIVE VAGINAL PATHOGENS DNA [id number] 00:00:00 Test Item Value Reference Range Interpretation Comments ANDIE SPECIES (test code = 35624) NEGATIVE G. VAGINALIS (test code = 68440) NEGATIVE T. VAGINALIS (test code = 86974) NEGATIVE COMPREHENSIVE METABOLIC PANEL [ADDED]2018-05-24 00:00:00 Test Item Value Reference Range Interpretation Comments GLUCOSE (test code = 2217) 198 MG/DL BUN (test code = 2208) 18 MG/DL CREATININE (test code = 2214) 0.86 MG/DL eGFR AMER. (test code 98 ML/MIN/1.73 = 38350) eGFR NON- AMER. (test 84 ML/MIN/1.73 code = 32711) CALC BUN/CREAT (test code = 21 RATIO [...] eGFR AMER. (test code 98 ML/MIN/1.73 = 68085) eGFR NON- AMER. (test 84 ML/MIN/1.73 code = 90222) CALC BUN/CREAT (test code = 21 RATIO [...] Interpretation Comments HEMOGLOBIN A1c (test code = 04633) 10.1 % HEMOGLOBIN A1c [ADDED]2018-05-24 00:00:00 Test Item Value Reference Range Interpretation Comments HEMOGLOBIN A1c (test code = 38263) 10.1 % HEMOGLOBIN A1c [ADDED]2018-05-24 00:00:00 Test Item Value Reference Range Interpretation Comments HEMOGLOBIN A1c (test code = 54456) 10.1 % COMPREHENSIVE METABOLIC PANEL [ADDED]2018-05-24 00:00:00 Test Item Value Reference Range Interpretation Comments GLUCOSE (test code = 2217) 198 MG/DL BUN (test code = 2208) 18 MG/DL CREATININE (test code = 2214) 0.86 MG/DL eGFR AMER. (test code 98 ML/MIN/1.73 = 58931) eGFR NON- AMER. (test 84 ML/MIN/1.73 code = 06006) CALC BUN/CREAT (test code = 21 RATIO [...] eGFR AMER. (test code 98 ML/MIN/1.73 = 51826) eGFR NON- AMER. (test 84 ML/MIN/1.73 code = 81977) CALC BUN/CREAT (test code = 21 RATIO [...] Interpretation Comments HEMOGLOBIN A1c (test code = 41331) 10.1 % HEMOGLOBIN A1c [ADDED]2018-05-24 00:00:00 Test Item Value Reference Range Interpretation Comments HEMOGLOBIN A1c (test code = 62912) 10.1 % HEMOGLOBIN A1c [ADDED]2018-05-24 00:00:00 Test Item Value Reference Range Interpretation Comments HEMOGLOBIN A1c (test code = 64729) 10.1 % COMPREHENSIVE METABOLIC PANEL [ADDED]2018-05-24 00:00:00 Test Item Value Reference Range Interpretation Comments GLUCOSE (test code = 2217) 198 MG/DL BUN (test code = 2208) 18 MG/DL CREATININE (test code = 2214) 0.86 MG/DL eGFR AMER. (test code 98 ML/MIN/1.73 = 21879) eGFR NON- AMER. (test 84 ML/MIN/1.73 code = 40225) CALC BUN/CREAT (test code = 21 RATIO [...] eGFR AMER. (test code 98 ML/MIN/1.73 = 44744) eGFR NON- AMER. (test 84 ML/MIN/1.73 code = 78388) CALC BUN/CREAT (test code = 21 RATIO [...] BILIRUBIN, TOTAL (test code = 0.3 MG/DL 220) ALKALINE PHOSPHATASE (test 42 U/L [...] Interpretation Comments HEMOGLOBIN A1c (test code = 97045) 10.1 % HEMOGLOBIN A1c [ADDED]2018-05-24 00:00:00 Test Item Value Reference Range Interpretation Comments HEMOGLOBIN A1c (test code = 22021) 10.1 % HEMOGLOBIN A1c [ADDED]2018-05-24 00:00:00 Test Item Value Reference Range Interpretation Comments HEMOGLOBIN A1c (test code = 89911) 10.1 % COMPREHENSIVE METABOLIC PANEL [ADDED]2018-05-24 00:00:00 Test Item Value Reference Range Interpretation Comments GLUCOSE (test code = 2217) 198 MG/DL BUN (test code = 2208) 18 MG/DL CREATININE (test code = 2214) 0.86 MG/DL eGFR AMER. (test code 98 ML/MIN/1.73 = 71387) eGFR NON- AMER. (test 84 ML/MIN/1.73 code = 16703) CALC BUN/CREAT (test code = 21 RATIO [...] eGFR AMER. (test code 98 ML/MIN/1.73 = 67298) eGFR NON- AMER. (test 84 ML/MIN/1.73 code = 70622) CALC BUN/CREAT (test code = 21 RATIO [...] Interpretation Comments HEMOGLOBIN A1c (test code = 45557) 10.1 % HEMOGLOBIN A1c [ADDED]2018-05-24 00:00:00 Test Item Value Reference Range Interpretation Comments HEMOGLOBIN A1c (test code = 65621) 10.1 % HEMOGLOBIN A1c [ADDED]2018-05-24 00:00:00 Test Item Value Reference Range Interpretation Comments HEMOGLOBIN A1c (test code = 01151) 10.1 % COMPREHENSIVE METABOLIC PANEL [ADDED]2018-05-24 00:00:00 Test Item Value Reference Range Interpretation Comments GLUCOSE (test code = 2217) 198 MG/DL BUN (test code = 2208) 18 MG/DL CREATININE (test code = 2214) 0.86 MG/DL eGFR AMER. (test code 98 ML/MIN/1.73 = 11770) eGFR NON- AMER. (test 84 ML/MIN/1.73 code = 81821) CALC BUN/CREAT (test code = 21 RATIO [...] eGFR AMER. (test code 98 ML/MIN/1.73 = 56659) eGFR NON- AMER. (test 84 ML/MIN/1.73 code = 50843) CALC BUN/CREAT (test code = 21 RATIO [...] Interpretation Comments HEMOGLOBIN A1c (test code = 89687) 10.1 % HEMOGLOBIN A1c [ADDED]2018-05-24 00:00:00 Test Item Value Reference Range Interpretation Comments HEMOGLOBIN A1c (test code = 86014) 10.1 % HEMOGLOBIN A1c [ADDED]2018-05-24 00:00:00 Test Item Value Reference Range Interpretation Comments HEMOGLOBIN A1c (test code = 78897) 10.1 % COMPREHENSIVE METABOLIC PANEL [ADDED]2018-05-24 00:00:00 Test Item Value Reference Range Interpretation Comments GLUCOSE (test code = 2217) 198 MG/DL BUN (test code = 2208) 18 MG/DL CREATININE (test code = 2214) 0.86 MG/DL eGFR AMER. (test code 98 ML/MIN/1.73 = 68206) eGFR NON- AMER. (test 84 ML/MIN/1.73 code = 52466) CALC BUN/CREAT (test code = 21 RATIO [...] BILIRUBIN, TOTAL (test code = 0.3 MG/DL 220) ALKALINE PHOSPHATASE (test 42 U/L [...] eGFR AMER. (test code 98 ML/MIN/1.73 = 93294) eGFR NON- AMER. (test 84 ML/MIN/1.73 code = 18974) CALC BUN/CREAT (test code = 21 RATIO [...] Interpretation Comments HEMOGLOBIN A1c (test code = 68432) 10.1 % HEMOGLOBIN A1c [ADDED]2018-05-24 00:00:00 Test Item Value Reference Range Interpretation Comments HEMOGLOBIN A1c (test code = 53881) 10.1 % HEMOGLOBIN A1c [ADDED]2018-05-24 00:00:00 Test Item Value Reference Range Interpretation Comments HEMOGLOBIN A1c (test code = 40633) 10.1 % COMPREHENSIVE METABOLIC PANEL [ADDED]2018-05-24 00:00:00 Test Item Value Reference Range Interpretation Comments GLUCOSE (test code = 2217) 198 MG/DL BUN (test code = 2208) 18 MG/DL CREATININE (test code = 2214) 0.86 MG/DL eGFR AMER. (test code 98 ML/MIN/1.73 = 62856) eGFR NON- AMER. (test 84 ML/MIN/1.73 code = 58540) CALC BUN/CREAT (test code = 21 RATIO [...] A/G RATIO (test code = 1.7 RATIO 223) BILIRUBIN, TOTAL (test code = 0.3 MG/DL [...] eGFR AMER. (test code 98 ML/MIN/1.73 = 15401) eGFR NON- AMER. (test 84 ML/MIN/1.73 code = 24591) CALC BUN/CREAT (test code = 21 RATIO [...] BILIRUBIN, TOTAL (test code = 0.3 MG/DL 220) ALKALINE PHOSPHATASE (test 42 U/L [...] Interpretation Comments HEMOGLOBIN A1c (test code = 13823) 10.1 % HEMOGLOBIN A1c [ADDED]2018-05-24 00:00:00 Test Item Value Reference Range Interpretation Comments HEMOGLOBIN A1c (test code = 89037) 10.1 % HEMOGLOBIN A1c [ADDED]2018-05-24 00:00:00 Test Item Value Reference Range Interpretation Comments HEMOGLOBIN A1c (test code = 67046) 10.1 % COMPREHENSIVE METABOLIC PANEL [ADDED]2018-05-24 00:00:00 Test Item Value Reference Range Interpretation Comments GLUCOSE (test code = 2217) 198 MG/DL BUN (test code = 2208) 18 MG/DL CREATININE (test code = 2214) 0.86 MG/DL eGFR AMER. (test code 98 ML/MIN/1.73 = 20740) eGFR NON- AMER. (test 84 ML/MIN/1.73 code = 67229) CALC BUN/CREAT (test code = 21 RATIO [...] Interpretation Comments HEMOGLOBIN A1c (test code = 60619) 10.1 % HEMOGLOBIN A1c [ADDED]2018-05-24 00:00:00 Test Item Value Reference Range Interpretation Comments HEMOGLOBIN A1c (test code = 32924) 10.1 % COMPREHENSIVE METABOLIC PANEL [ADDED]2018-05-24 00:00:00 Test Item Value Reference Range Interpretation Comments GLUCOSE (test code = 2217) 198 MG/DL BUN (test code = 2208) 18 MG/DL CREATININE (test code = 2214) 0.86 MG/DL eGFR AMER. (test code 98 ML/MIN/1.73 = 13114) eGFR NON- AMER. (test 84 ML/MIN/1.73 code = 01870) CALC BUN/CREAT (test code = 21 RATIO [...] eGFR AMER. (test code 98 ML/MIN/1.73 = 90838) eGFR NON- AMER. (test 84 ML/MIN/1.73 code = 59637) CALC BUN/CREAT (test code = 21 RATIO [...] Interpretation Comments HEMOGLOBIN A1c (test code = 48499) 10.1 % HEMOGLOBIN A1c [ADDED]2018-05-24 00:00:00 Test Item Value Reference Range Interpretation Comments HEMOGLOBIN A1c (test code = 69917) 10.1 % HEMOGLOBIN A1c [ADDED]2018-05-24 00:00:00 Test Item Value Reference Range Interpretation Comments HEMOGLOBIN A1c (test code = 24080) 10.1 % COMPREHENSIVE METABOLIC PANEL [ADDED]2018-05-24 00:00:00 Test Item Value Reference Range Interpretation Comments GLUCOSE (test code = 2217) 198 MG/DL BUN (test code = 2208) 18 MG/DL CREATININE (test code = 2214) 0.86 MG/DL eGFR AMER. (test code 98 ML/MIN/1.73 = 46820) eGFR NON- AMER. (test 84 ML/MIN/1.73 code = 64416) CALC BUN/CREAT (test code = 21 RATIO [...] eGFR AMER. (test code 98 ML/MIN/1.73 = 66103) eGFR NON- AMER. (test 84 ML/MIN/1.73 code = 27884) CALC BUN/CREAT (test code = 21 RATIO [...] Interpretation Comments HEMOGLOBIN A1c (test code = 27013) 10.1 % HEMOGLOBIN A1c [ADDED]2018-05-24 00:00:00 Test Item Value Reference Range Interpretation Comments HEMOGLOBIN A1c (test code = 80124) 10.1 % HEMOGLOBIN A1c [ADDED]2018-05-24 00:00:00 Test Item Value Reference Range Interpretation Comments HEMOGLOBIN A1c (test code = 52796) 10.1 % COMPREHENSIVE METABOLIC PANEL [ADDED]2018-05-24 00:00:00 Test Item Value Reference Range Interpretation Comments GLUCOSE (test code = 2217) 198 MG/DL BUN (test code = 2208) 18 MG/DL CREATININE (test code = 2214) 0.86 MG/DL eGFR AMER. (test code 98 ML/MIN/1.73 = 45220) eGFR NON- AMER. (test 84 ML/MIN/1.73 code = 09064) CALC BUN/CREAT (test code = 21 RATIO [...] eGFR AMER. (test code 98 ML/MIN/1.73 = 82220) eGFR NON- AMER. (test 84 ML/MIN/1.73 code = 04205) CALC BUN/CREAT (test code = 21 RATIO [...] Interpretation Comments HEMOGLOBIN A1c (test code = 86985) 10.1 % HEMOGLOBIN A1c [ADDED]2018-05-24 00:00:00 Test Item Value Reference Range Interpretation Comments HEMOGLOBIN A1c (test code = 76098) 10.1 % HEMOGLOBIN A1c [ADDED]2018-05-24 00:00:00 Test Item Value Reference Range Interpretation Comments HEMOGLOBIN A1c (test code = 79117) 10.1 % HEMOGLOBIN [id number] 00:00:00 Test Item Value Reference Range Interpretation Comments HEMOGLOBIN A1c (test code = 75463) 8.5 % HEMOGLOBIN [id number] 00:00:00 Test Item Value Reference Range Interpretation Comments HEMOGLOBIN A1c (test code = 77436) 8.5 % HEMOGLOBIN [id number] 00:00:00 Test Item Value Reference Range Interpretation Comments HEMOGLOBIN A1c (test code = 75385) 8.5 % COMPREHENSIVE METABOLIC [id number] 00:00:00 Test Item Value Reference Range Interpretation Comments GLUCOSE (test code = 2217) 131 MG/DL BUN (test code = 2208) 16 MG/DL CREATININE (test code = 2214) 0.71 MG/DL eGFR AMER. (test code 124 ML/MIN/1.73 = 88830) eGFR NON- AMER. (test 107 ML/MIN/1.73 code = 77027) CALC BUN/CREAT (test code = 23 RATIO [...] BILIRUBIN, TOTAL (test code = 0.4 MG/DL 220) ALKALINE PHOSPHATASE (test 32 U/L code = 2204) AST (test code = 2218) 26 U/L ALT (test code = 2219) 33 U/L COMPREHENSIVE METABOLIC [id number] 00:00:00 Test Item Value Reference Range Interpretation Comments GLUCOSE (test code = 2217) 131 MG/DL BUN (test code = 2208) 16 MG/DL CREATININE (test code = 2214) 0.71 MG/DL eGFR AMER. (test code 124 ML/MIN/1.73 = 50355) eGFR NON- AMER. (test 107 ML/MIN/1.73 code = 99646) CALC BUN/CREAT (test code = 23 RATIO [...] = 0.4 MG/DL 2207) ALKALINE PHOSPHATASE (test 32 U/L code = 2204) AST (test code = 2218) 26 U/L ALT (test code = 2219) 33 U/L LIPID [id number] 00:00:00 Test Item Value Reference Range Interpretation Comments CHOLESTEROL (test code = 2210) 201 MG/DL TRIGLYCERIDES (test code = 2232) 1014 MG/DL HDL CHOLESTEROL (test code = 25 MG/DL 2220) CALC LDL CHOL (test code = 2237) NOTE MG/DL RISK RATIO LDL/HDL (test code = (NOTE) RATIO 2238) LIPID [id number] 00:00:00 Test Item Value Reference Range Interpretation Comments CHOLESTEROL (test code = 2210) 201 MG/DL TRIGLYCERIDES (test code = 2232) 1014 MG/DL HDL CHOLESTEROL (test code = 25 MG/DL 2220) CALC LDL CHOL (test code = 2237) NOTE MG/DL RISK RATIO LDL/HDL (test code = (NOTE) RATIO 2238) HEMOGLOBIN [id number] 00:00:00 Test Item Value Reference Range Interpretation Comments HEMOGLOBIN A1c (test code = 20101) 8.5 % HEMOGLOBIN [id number] 00:00:00 Test Item Value Reference Range Interpretation Comments HEMOGLOBIN A1c (test code = 64088) 8.5 % HEMOGLOBIN [id number] 00:00:00 Test Item Value Reference Range Interpretation Comments HEMOGLOBIN A1c (test code = 10439) 8.5 % COMPREHENSIVE METABOLIC [id number] 00:00:00 Test Item Value Reference Range Interpretation Comments GLUCOSE (test code = 2217) 131 MG/DL BUN (test code = 2208) 16 MG/DL CREATININE (test code = 2214) 0.71 MG/DL eGFR AMER. (test code 124 ML/MIN/1.73 = 52122) eGFR NON- AMER. (test 107 ML/MIN/1.73 code = 57625) CALC BUN/CREAT (test code = 23 RATIO 2235) SODIUM (test code = 2231) 140 MEQ/L POTASSIUM (test code = 2228) 3.8 MEQ/L CHLORIDE (test code = 2215) 96 MEQ/L CARBON DIOXIDE (test code = 27 MEQ/L 6) CALCIUM (test code = 2209) 9.9 MG/DL PROTEIN, TOTAL (test code = 7.4 G/DL 2228) ALBUMIN (test code = 2201) 4.6 G/DL CALC GLOBULIN (test code = 2.8 G/DL 0) CALC A/G RATIO (test code = 1.6 RATIO 2234) BILIRUBIN, TOTAL (test code = 0.4 MG/DL 2206) ALKALINE PHOSPHATASE (test 32 U/L code = 2204) AST (test code = 2218) 26 U/L ALT (test code = 2219) 33 U/L COMPREHENSIVE METABOLIC [id number] 00:00:00 Test Item Value Reference Range Interpretation Comments GLUCOSE (test code = 2217) 131 MG/DL BUN (test code = 2208) 16 MG/DL CREATININE (test code = 2214) 0.71 MG/DL eGFR AMER. (test code 124 ML/MIN/1.73 = 37534) eGFR NON- AMER. (test 107 ML/MIN/1.73 code = 27368) CALC BUN/CREAT (test code = 23 RATIO [...] (test code = 2219) 33 U/L LIPID [id number] 00:00:00 Test Item Value Reference Range Interpretation Comments CHOLESTEROL (test code = 2210) 201 MG/DL TRIGLYCERIDES (test code = 2232) 1014 MG/DL HDL CHOLESTEROL (test code = 25 MG/DL 2220) CALC LDL CHOL (test code = 2237) NOTE MG/DL RISK RATIO LDL/HDL (test code = (NOTE) RATIO 2238) LIPID [id number] 00:00:00 Test Item Value Reference Range Interpretation Comments CHOLESTEROL (test code = 2210) 201 MG/DL TRIGLYCERIDES (test code = 2232) 1014 MG/DL HDL CHOLESTEROL (test code = 25 MG/DL 2220) CALC LDL CHOL (test code = 2237) NOTE MG/DL RISK RATIO LDL/HDL (test code = (NOTE) RATIO 2238) HEMOGLOBIN [id number] 00:00:00 Test Item Value Reference Range Interpretation Comments HEMOGLOBIN A1c (test code = 69148) 8.5 % HEMOGLOBIN [id number] 00:00:00 Test Item Value Reference Range Interpretation Comments HEMOGLOBIN A1c (test code = 82427) 8.5 % HEMOGLOBIN [id number] 00:00:00 Test Item Value Reference Range Interpretation Comments HEMOGLOBIN A1c (test code = 10637) 8.5 % COMPREHENSIVE METABOLIC [id number] 00:00:00 Test Item Value Reference Range Interpretation Comments GLUCOSE (test code = 2217) 131 MG/DL BUN (test code = 2208) 16 MG/DL CREATININE (test code = 2214) 0.71 MG/DL eGFR AMER. (test code 124 ML/MIN/1.73 = 76378) eGFR NON- AMER. (test 107 ML/MIN/1.73 code = 33940) CALC BUN/CREAT (test code = 23 RATIO [...] code = 2219) 33 U/L COMPREHENSIVE METABOLIC [id number] 00:00:00 Test Item Value Reference Range Interpretation Comments GLUCOSE (test code = 2217) 131 MG/DL BUN (test code = 2208) 16 MG/DL CREATININE (test code = 2214) 0.71 MG/DL eGFR AMER. (test code 124 ML/MIN/1.73 = 16655) eGFR NON- AMER. (test 107 ML/MIN/1.73 code = 55824) CALC BUN/CREAT (test code = 23 RATIO [...] (test code = 2219) 33 U/L LIPID [id number] 00:00:00 Test Item Value Reference Range Interpretation Comments CHOLESTEROL (test code = 2210) 201 MG/DL TRIGLYCERIDES (test code = 2232) 1014 MG/DL HDL CHOLESTEROL (test code = 25 MG/DL 2220) CALC LDL CHOL (test code = 2237) NOTE MG/DL RISK RATIO LDL/HDL (test code = (NOTE) RATIO 2238) LIPID [id number] 00:00:00 Test Item Value Reference Range Interpretation Comments CHOLESTEROL (test code = 2210) 201 MG/DL TRIGLYCERIDES (test code = 2232) 1014 MG/DL HDL CHOLESTEROL (test code = 25 MG/DL 2220) CALC LDL CHOL (test code = 2237) NOTE MG/DL RISK RATIO LDL/HDL (test code = (NOTE) RATIO 2238) HEMOGLOBIN [id number] 00:00:00 Test Item Value Reference Range Interpretation Comments HEMOGLOBIN A1c (test code = 00021) 8.5 % HEMOGLOBIN [id number] 00:00:00 Test Item Value Reference Range Interpretation Comments HEMOGLOBIN A1c (test code = 33348) 8.5 % HEMOGLOBIN [id number] 00:00:00 Test Item Value Reference Range Interpretation Comments HEMOGLOBIN A1c (test code = 72804) 8.5 % COMPREHENSIVE METABOLIC [id number] 00:00:00 Test Item Value Reference Range Interpretation Comments GLUCOSE (test code = 2217) 131 MG/DL BUN (test code = 2208) 16 MG/DL CREATININE (test code = 2214) 0.71 MG/DL eGFR AMER. (test code 124 ML/MIN/1.73 = 31056) eGFR NON- AMER. (test 107 ML/MIN/1.73 code = 79743) CALC BUN/CREAT (test code = 23 RATIO [...] code = 2219) 33 U/L COMPREHENSIVE METABOLIC [id number] 00:00:00 Test Item Value Reference Range Interpretation Comments GLUCOSE (test code = 2217) 131 MG/DL BUN (test code = 2208) 16 MG/DL CREATININE (test code = 2214) 0.71 MG/DL eGFR AMER. (test code 124 ML/MIN/1.73 = 80945) eGFR NON- AMER. (test 107 ML/MIN/1.73 code = 86995) CALC BUN/CREAT (test code = 23 RATIO [...] (test code = 2219) 33 U/L LIPID [id number] 00:00:00 Test Item Value Reference Range Interpretation Comments CHOLESTEROL (test code = 2210) 201 MG/DL TRIGLYCERIDES (test code = 2232) 1014 MG/DL HDL CHOLESTEROL (test code = 25 MG/DL 2220) CALC LDL CHOL (test code = 2237) NOTE MG/DL RISK RATIO LDL/HDL (test code = (NOTE) RATIO 2238) LIPID [id number] 00:00:00 Test Item Value Reference Range Interpretation Comments CHOLESTEROL (test code = 2210) 201 MG/DL TRIGLYCERIDES (test code = 2232) 1014 MG/DL HDL CHOLESTEROL (test code = 25 MG/DL 2220) CALC LDL CHOL (test code = 2237) NOTE MG/DL RISK RATIO LDL/HDL (test code = (NOTE) RATIO 2238) HEMOGLOBIN [id number] 00:00:00 Test Item Value Reference Range Interpretation Comments HEMOGLOBIN A1c (test code = 02282) 8.5 % HEMOGLOBIN [id number] 00:00:00 Test Item Value Reference Range Interpretation Comments HEMOGLOBIN A1c (test code = 60830) 8.5 % HEMOGLOBIN [id number] 00:00:00 Test Item Value Reference Range Interpretation Comments HEMOGLOBIN A1c (test code = 81412) 8.5 % COMPREHENSIVE METABOLIC [id number] 00:00:00 Test Item Value Reference Range Interpretation Comments GLUCOSE (test code = 2217) 131 MG/DL BUN (test code = 2208) 16 MG/DL CREATININE (test code = 2214) 0.71 MG/DL eGFR AMER. (test code 124 ML/MIN/1.73 = 49594) eGFR NON- AMER. (test 107 ML/MIN/1.73 code = 43235) CALC BUN/CREAT (test code = 23 RATIO [...] CALC GLOBULIN (test code = 2.8 G/DL 0) CALC A/G RATIO (test code = 1.6 RATIO 2233) BILIRUBIN, TOTAL (test code = 0.4 MG/DL 2207) ALKALINE PHOSPHATASE (test 32 U/L code = 2204) AST (test code = 2218) 26 U/L ALT (test code = 2219) 33 U/L COMPREHENSIVE METABOLIC [id number] 00:00:00 Test Item Value Reference Range Interpretation Comments GLUCOSE (test code = 2217) 131 MG/DL BUN (test code = 2208) 16 MG/DL CREATININE (test code = 2214) 0.71 MG/DL eGFR AMER. (test code 124 ML/MIN/1.73 = 86809) eGFR NON- AMER. (test 107 ML/MIN/1.73 code = 63004) CALC BUN/CREAT (test code = 23 RATIO [...] (test code = 2219) 33 U/L LIPID [id number] 00:00:00 Test Item Value Reference Range Interpretation Comments CHOLESTEROL (test code = 2210) 201 MG/DL TRIGLYCERIDES (test code = 2232) 1014 MG/DL HDL CHOLESTEROL (test code = 25 MG/DL 2220) CALC LDL CHOL (test code = 2237) NOTE MG/DL RISK RATIO LDL/HDL (test code = (NOTE) RATIO 2238) LIPID [id number] 00:00:00 Test Item Value Reference Range Interpretation Comments CHOLESTEROL (test code = 2210) 201 MG/DL TRIGLYCERIDES (test code = 2232) 1014 MG/DL HDL CHOLESTEROL (test code = 25 MG/DL 2220) CALC LDL CHOL (test code = 2237) NOTE MG/DL RISK RATIO LDL/HDL (test code = (NOTE) RATIO 2238) HEMOGLOBIN [id number] 00:00:00 Test Item Value Reference Range Interpretation Comments HEMOGLOBIN A1c (test code = 07230) 8.5 % HEMOGLOBIN [id number] 00:00:00 Test Item Value Reference Range Interpretation Comments HEMOGLOBIN A1c (test code = 90380) 8.5 % HEMOGLOBIN [id number] 00:00:00 Test Item Value Reference Range Interpretation Comments HEMOGLOBIN A1c (test code = 18751) 8.5 % COMPREHENSIVE METABOLIC [id number] 00:00:00 Test Item Value Reference Range Interpretation Comments GLUCOSE (test code = 2217) 131 MG/DL BUN (test code = 2208) 16 MG/DL CREATININE (test code = 2214) 0.71 MG/DL eGFR AMER. (test code 124 ML/MIN/1.73 = 26499) eGFR NON- AMER. (test 107 ML/MIN/1.73 code = 52160) CALC BUN/CREAT (test code = 23 RATIO [...] code = 2219) 33 U/L COMPREHENSIVE METABOLIC [id number] 00:00:00 Test Item Value Reference Range Interpretation Comments GLUCOSE (test code = 2217) 131 MG/DL BUN (test code = 2208) 16 MG/DL CREATININE (test code = 2214) 0.71 MG/DL eGFR AMER. (test code 124 ML/MIN/1.73 = 87433) eGFR NON- AMER. (test 107 ML/MIN/1.73 code = 77675) CALC BUN/CREAT (test code = 23 RATIO [...] (test code = 2219) 33 U/L LIPID [id number] 00:00:00 Test Item Value Reference Range Interpretation Comments CHOLESTEROL (test code = 2210) 201 MG/DL TRIGLYCERIDES (test code = 2232) 1014 MG/DL HDL CHOLESTEROL (test code = 25 MG/DL 2220) CALC LDL CHOL (test code = 2237) NOTE MG/DL RISK RATIO LDL/HDL (test code = (NOTE) RATIO 2238) LIPID [id number] 00:00:00 Test Item Value Reference Range Interpretation Comments CHOLESTEROL (test code = 2210) 201 MG/DL TRIGLYCERIDES (test code = 2232) 1014 MG/DL HDL CHOLESTEROL (test code = 25 MG/DL 2220) CALC LDL CHOL (test code = 2237) NOTE MG/DL RISK RATIO LDL/HDL (test code = (NOTE) RATIO 2238) HEMOGLOBIN [id number] 00:00:00 Test Item Value Reference Range Interpretation Comments HEMOGLOBIN A1c (test code = 14311) 8.5 % HEMOGLOBIN [id number] 00:00:00 Test Item Value Reference Range Interpretation Comments HEMOGLOBIN A1c (test code = 94093) 8.5 % HEMOGLOBIN [id number] 00:00:00 Test Item Value Reference Range Interpretation Comments HEMOGLOBIN A1c (test code = 82099) 8.5 % COMPREHENSIVE METABOLIC [id number] 00:00:00 Test Item Value Reference Range Interpretation Comments GLUCOSE (test code = 2217) 131 MG/DL BUN (test code = 2208) 16 MG/DL CREATININE (test code = 2214) 0.71 MG/DL eGFR AMER. (test code 124 ML/MIN/1.73 = 08900) eGFR NON- AMER. (test 107 ML/MIN/1.73 code = 13135) CALC BUN/CREAT (test code = 23 RATIO [...] code = 2219) 33 U/L COMPREHENSIVE METABOLIC [id number] 00:00:00 Test Item Value Reference Range Interpretation Comments GLUCOSE (test code = 2217) 131 MG/DL BUN (test code = 2208) 16 MG/DL CREATININE (test code = 2214) 0.71 MG/DL eGFR AMER. (test code 124 ML/MIN/1.73 = 62281) eGFR NON- AMER. (test 107 ML/MIN/1.73 code = 35691) CALC BUN/CREAT (test code = 23 RATIO [...] (test code = 2219) 33 U/L LIPID [id number] 00:00:00 Test Item Value Reference Range Interpretation Comments CHOLESTEROL (test code = 2210) 201 MG/DL TRIGLYCERIDES (test code = 2232) 1014 MG/DL HDL CHOLESTEROL (test code = 25 MG/DL 2220) CALC LDL CHOL (test code = 2237) NOTE MG/DL RISK RATIO LDL/HDL (test code = (NOTE) RATIO 2238) LIPID [id number] 00:00:00 Test Item Value Reference Range Interpretation Comments CHOLESTEROL (test code = 2210) 201 MG/DL TRIGLYCERIDES (test code = 2232) 1014 MG/DL HDL CHOLESTEROL (test code = 25 MG/DL 2220) CALC LDL CHOL (test code = 2237) NOTE MG/DL RISK RATIO LDL/HDL (test code = (NOTE) RATIO 2238) HEMOGLOBIN [id number] 00:00:00 Test Item Value Reference Range Interpretation Comments HEMOGLOBIN A1c (test code = 10820) 8.5 % HEMOGLOBIN [id number] 00:00:00 Test Item Value Reference Range Interpretation Comments HEMOGLOBIN A1c (test code = 60807) 8.5 % COMPREHENSIVE METABOLIC [id number] 00:00:00 Test Item Value Reference Range Interpretation Comments GLUCOSE (test code = 2217) 131 MG/DL BUN (test code = 2208) 16 MG/DL CREATININE (test code = 2214) 0.71 MG/DL eGFR AMER. (test code 124 ML/MIN/1.73 = 95203) eGFR NON- AMER. (test 107 ML/MIN/1.73 code = 88619) CALC BUN/CREAT (test code = 23 RATIO [...] A/G RATIO (test code = 1.6 RATIO 223) BILIRUBIN, TOTAL (test code = 0.4 MG/DL 2206) ALKALINE PHOSPHATASE (test 32 U/L code = 2204) AST (test code = 2218) 26 U/L ALT (test code = 2219) 33 U/L LIPID [id number] 00:00:00 Test Item Value Reference Range Interpretation Comments CHOLESTEROL (test code = 2210) 201 MG/DL TRIGLYCERIDES (test code = 2232) 1014 MG/DL HDL CHOLESTEROL (test code = 25 MG/DL 2219) CALC LDL CHOL (test code = 2237) NOTE MG/DL RISK RATIO LDL/HDL (test code = (NOTE) RATIO 2238) HEMOGLOBIN [id number] 00:00:00 Test Item Value Reference Range Interpretation Comments HEMOGLOBIN A1c (test code = 47270) 8.5 % HEMOGLOBIN [id number] 00:00:00 Test Item Value Reference Range Interpretation Comments HEMOGLOBIN A1c (test code = 87016) 8.5 % HEMOGLOBIN [id number] 00:00:00 Test Item Value Reference Range Interpretation Comments HEMOGLOBIN A1c (test code = 91406) 8.5 % COMPREHENSIVE METABOLIC [id number] 00:00:00 Test Item Value Reference Range Interpretation Comments GLUCOSE (test code = 2217) 131 MG/DL BUN (test code = 2208) 16 MG/DL CREATININE (test code = 2214) 0.71 MG/DL eGFR AMER. (test code 124 ML/MIN/1.73 = 90086) eGFR NON- AMER. (test 107 ML/MIN/1.73 code = 73271) CALC BUN/CREAT (test code = 23 RATIO 2235) SODIUM (test code = 2231) 140 MEQ/L POTASSIUM (test code = 2228) 3.8 MEQ/L CHLORIDE (test code = 2215) 96 MEQ/L CARBON DIOXIDE (test code = 27 MEQ/L 2205) CALCIUM (test code = 2209) 9.9 MG/DL PROTEIN, TOTAL (test code = 7.4 G/DL 2228) ALBUMIN (test code = 220) 4.6 G/DL CALC GLOBULIN (test code = 2.8 G/DL 2240) CALC A/G RATIO (test code = 1.6 RATIO 2234) BILIRUBIN, TOTAL (test code = 0.4 MG/DL 2207) ALKALINE PHOSPHATASE (test 32 U/L code = 2204) AST (test code = 2218) 26 U/L ALT (test code = 2219) 33 U/L COMPREHENSIVE METABOLIC [id number] 00:00:00 Test Item Value Reference Range Interpretation Comments GLUCOSE (test code = 2217) 131 MG/DL BUN (test code = 2208) 16 MG/DL CREATININE (test code = 2214) 0.71 MG/DL eGFR AMER. (test code 124 ML/MIN/1.73 = 94206) eGFR NON- AMER. (test 107 ML/MIN/1.73 code = 07753) CALC BUN/CREAT (test code = 23 RATIO [...] = 0.4 MG/DL 2207) ALKALINE PHOSPHATASE (test 32 U/L code = 2204) AST (test code = 2218) 26 U/L ALT (test code = 2219) 33 U/L LIPID [id number] 00:00:00 Test Item Value Reference Range Interpretation Comments CHOLESTEROL (test code = 2210) 201 MG/DL TRIGLYCERIDES (test code = 2232) 1014 MG/DL HDL CHOLESTEROL (test code = 25 MG/DL 2220) CALC LDL CHOL (test code = 2237) NOTE MG/DL RISK RATIO LDL/HDL (test code = (NOTE) RATIO 2238) LIPID [id number] 00:00:00 Test Item Value Reference Range Interpretation Comments CHOLESTEROL (test code = 2210) 201 MG/DL TRIGLYCERIDES (test code = 2232) 1014 MG/DL HDL CHOLESTEROL (test code = 25 MG/DL 2220) CALC LDL CHOL (test code = 2237) NOTE MG/DL RISK RATIO LDL/HDL (test code = (NOTE) RATIO 2238) HEMOGLOBIN [id number] 00:00:00 Test Item Value Reference Range Interpretation Comments HEMOGLOBIN A1c (test code = 55488) 8.5 % HEMOGLOBIN [id number] 00:00:00 Test Item Value Reference Range Interpretation Comments HEMOGLOBIN A1c (test code = 87596) 8.5 % HEMOGLOBIN [id number] 00:00:00 Test Item Value Reference Range Interpretation Comments HEMOGLOBIN A1c (test code = 45671) 8.5 % COMPREHENSIVE METABOLIC [id number] 00:00:00 Test Item Value Reference Range Interpretation Comments GLUCOSE (test code = 2217) 131 MG/DL BUN (test code = 2208) 16 MG/DL CREATININE (test code = 2214) 0.71 MG/DL eGFR AMER. (test code 124 ML/MIN/1.73 = 40691) eGFR NON- AMER. (test 107 ML/MIN/1.73 code = 24711) CALC BUN/CREAT (test code = 23 RATIO [...] code = 2219) 33 U/L COMPREHENSIVE METABOLIC [id number] 00:00:00 Test Item Value Reference Range Interpretation Comments GLUCOSE (test code = 2217) 131 MG/DL BUN (test code = 2208) 16 MG/DL CREATININE (test code = 2214) 0.71 MG/DL eGFR AMER. (test code 124 ML/MIN/1.73 = 06402) eGFR NON- AMER. (test 107 ML/MIN/1.73 code = 41113) CALC BUN/CREAT (test code = 23 RATIO [...] (test code = 2219) 33 U/L LIPID [id number] 00:00:00 Test Item Value Reference Range Interpretation Comments CHOLESTEROL (test code = 2210) 201 MG/DL TRIGLYCERIDES (test code = 2232) 1014 MG/DL HDL CHOLESTEROL (test code = 25 MG/DL 2220) CALC LDL CHOL (test code = 2237) NOTE MG/DL RISK RATIO LDL/HDL (test code = (NOTE) RATIO 2238) LIPID [id number] 00:00:00 Test Item Value Reference Range Interpretation Comments CHOLESTEROL (test code = 2210) 201 MG/DL TRIGLYCERIDES (test code = 2232) 1014 MG/DL HDL CHOLESTEROL (test code = 25 MG/DL 2220) CALC LDL CHOL (test code = 2237) NOTE MG/DL RISK RATIO LDL/HDL (test code = (NOTE) RATIO 2238) HEMOGLOBIN [id number] 00:00:00 Test Item Value Reference Range Interpretation Comments HEMOGLOBIN A1c (test code = 07377) 8.5 % HEMOGLOBIN [id number] 00:00:00 Test Item Value Reference Range Interpretation Comments HEMOGLOBIN A1c (test code = 61894) 8.5 % HEMOGLOBIN [id number] 00:00:00 Test Item Value Reference Range Interpretation Comments HEMOGLOBIN A1c (test code = 12593) 8.5 % COMPREHENSIVE METABOLIC [id number] 00:00:00 Test Item Value Reference Range Interpretation Comments GLUCOSE (test code = 2217) 131 MG/DL BUN (test code = 2208) 16 MG/DL CREATININE (test code = 2214) 0.71 MG/DL eGFR AMER. (test code 124 ML/MIN/1.73 = 68358) eGFR NON- AMER. (test 107 ML/MIN/1.73 code = 38634) CALC BUN/CREAT (test code = 23 RATIO [...] code = 2219) 33 U/L COMPREHENSIVE METABOLIC [id number] 00:00:00 Test Item Value Reference Range Interpretation Comments GLUCOSE (test code = 2217) 131 MG/DL BUN (test code = 2208) 16 MG/DL CREATININE (test code = 2214) 0.71 MG/DL eGFR AMER. (test code 124 ML/MIN/1.73 = 91684) eGFR NON- AMER. (test 107 ML/MIN/1.73 code = 12262) CALC BUN/CREAT (test code = 23 RATIO [...] (test code = 2219) 33 U/L LIPID [id number] 00:00:00 Test Item Value Reference Range Interpretation Comments CHOLESTEROL (test code = 2210) 201 MG/DL TRIGLYCERIDES (test code = 2232) 1014 MG/DL HDL CHOLESTEROL (test code = 25 MG/DL 2220) CALC LDL CHOL (test code = 2237) NOTE MG/DL RISK RATIO LDL/HDL (test code = (NOTE) RATIO 2238) LIPID [id number] 00:00:00 Test Item Value Reference Range Interpretation Comments CHOLESTEROL (test code = 2210) 201 MG/DL TRIGLYCERIDES (test code = 2232) 1014 MG/DL HDL CHOLESTEROL (test code = 25 MG/DL 2220) CALC LDL CHOL (test code = 2237) NOTE MG/DL RISK RATIO LDL/HDL (test code = (NOTE) RATIO 2238) CULTURE, HERPES [id number] 00:00:00 Test Item Value Reference Range Interpretation Comments SPECIMEN SOURCE (test code = 56929) LABIA HERPES CULTURE (test code = 3533) NEGATIVE CULTURE, HERPES [id number] 00:00:00 Test Item Value Reference Range Interpretation Comments SPECIMEN SOURCE (test code = 76914) LABIA HERPES CULTURE (test code = 3533) NEGATIVE CULTURE, HERPES [id number] 00:00:00 Test Item Value Reference Range Interpretation Comments SPECIMEN SOURCE (test code = 05216) LABIA HERPES CULTURE (test code = 3533) NEGATIVE CULTURE, HERPES [id number] 00:00:00 Test Item Value Reference Range Interpretation Comments SPECIMEN SOURCE (test code = 45310) LABIA HERPES CULTURE (test code = 3533) NEGATIVE CULTURE, HERPES [id number] 00:00:00 Test Item Value Reference Range Interpretation Comments SPECIMEN SOURCE (test code = 83824) LABIA HERPES CULTURE (test code = 3533) NEGATIVE CULTURE, HERPES [id number] 00:00:00 Test Item Value Reference Range Interpretation Comments SPECIMEN SOURCE (test code = 00836) LABIA HERPES CULTURE (test code = 3533) NEGATIVE CULTURE, HERPES [id number] 00:00:00 Test Item Value Reference Range Interpretation Comments SPECIMEN SOURCE (test code = 40416) LABIA HERPES CULTURE (test code = 3533) NEGATIVE CULTURE, HERPES [id number] 00:00:00 Test Item Value Reference Range Interpretation Comments SPECIMEN SOURCE (test code = 86006) LABIA HERPES CULTURE (test code = 3533) NEGATIVE CULTURE, HERPES [id number] 00:00:00 Test Item Value Reference Range Interpretation Comments SPECIMEN SOURCE (test code = 87649) LABIA HERPES CULTURE (test code = 3533) NEGATIVE CULTURE, HERPES [id number] 00:00:00 Test Item Value Reference Range Interpretation Comments SPECIMEN SOURCE (test code = 99746) LABIA HERPES CULTURE (test code = 3533) NEGATIVE CULTURE, HERPES [id number] 00:00:00 Test Item Value Reference Range Interpretation Comments SPECIMEN SOURCE (test code = 80712) LABIA HERPES CULTURE (test code = 3533) NEGATIVE CULTURE, HERPES [id number] 00:00:00 Test Item Value Reference Range Interpretation Comments SPECIMEN SOURCE (test code = 44942) LABIA HERPES CULTURE (test code = 3533) NEGATIVE CULTURE, HERPES [id number] 00:00:00 Test Item Value Reference Range Interpretation Comments SPECIMEN SOURCE (test code = 97520) LABIA HERPES CULTURE (test code = 3533) NEGATIVE CULTURE, HERPES [id number] 00:00:00 Test Item Value Reference Range Interpretation Comments SPECIMEN SOURCE (test code = 07478) LABIA HERPES CULTURE (test code = 3533) NEGATIVE CULTURE, HERPES [id number] 00:00:00 Test Item Value Reference Range Interpretation Comments SPECIMEN SOURCE (test code = 71151) LABIA HERPES CULTURE (test code = 3533) NEGATIVE CULTURE, HERPES [id number] 00:00:00 Test Item Value Reference Range Interpretation Comments SPECIMEN SOURCE (test code = 36901) LABIA HERPES CULTURE (test code = 3533) NEGATIVE CULTURE, HERPES [id number] 00:00:00 Test Item Value Reference Range Interpretation Comments SPECIMEN SOURCE (test code = 30561) LABIA HERPES CULTURE (test code = 3533) NEGATIVE CULTURE, HERPES [id number] 00:00:00 Test Item Value Reference Range Interpretation Comments SPECIMEN SOURCE (test code = 62713) LABIA HERPES CULTURE (test code = 3533) NEGATIVE CULTURE, HERPES [id number] 00:00:00 Test Item Value Reference Range Interpretation Comments SPECIMEN SOURCE (test code = 05600) LABIA HERPES CULTURE (test code = 3533) NEGATIVE CULTURE, HERPES [id number] 00:00:00 Test Item Value Reference Range Interpretation Comments SPECIMEN SOURCE (test code = 14726) LABIA HERPES CULTURE (test code = 3533) NEGATIVE CULTURE, HERPES [id number] 00:00:00 Test Item Value Reference Range Interpretation Comments SPECIMEN SOURCE (test code = 20410) LABIA HERPES CULTURE (test code = 3533) NEGATIVE VAGINAL PATHOGENS DNA [id number] 00:00:00 Test Item Value Reference Range Interpretation Comments ANDIE SPECIES (test code = ) NEGATIVE G. VAGINALIS (test code = 07621) NEGATIVE T. VAGINALIS (test code = 20088) NEGATIVE VAGINAL PATHOGENS DNA [id number] 00:00:00 Test Item Value Reference Range Interpretation Comments ANDIE SPECIES (test code = 28227) NEGATIVE G. VAGINALIS (test code = 06436) NEGATIVE T. VAGINALIS (test code = 23248) NEGATIVE VAGINAL PATHOGENS DNA [id number] 00:00:00 Test Item Value Reference Range Interpretation Comments ANDIE SPECIES (test code = 47245) NEGATIVE G. VAGINALIS (test code = 43941) NEGATIVE T. VAGINALIS (test code = 38131) NEGATIVE VAGINAL PATHOGENS DNA [id number] 00:00:00 Test Item Value Reference Range Interpretation Comments ANDIE SPECIES (test code = 79899) NEGATIVE G. VAGINALIS (test code = 03577) NEGATIVE T. VAGINALIS (test code = 32463) NEGATIVE VAGINAL PATHOGENS DNA [id number] 00:00:00 Test Item Value Reference Range Interpretation Comments ANDIE SPECIES (test code = 96056) NEGATIVE G. VAGINALIS (test code = 80857) NEGATIVE T. VAGINALIS (test code = 14195) NEGATIVE VAGINAL PATHOGENS DNA [id number] 00:00:00 Test Item Value Reference Range Interpretation Comments ANDIE SPECIES (test code = 48821) NEGATIVE G. VAGINALIS (test code = 29735) NEGATIVE T. VAGINALIS (test code = 94035) NEGATIVE VAGINAL PATHOGENS DNA [id number] 00:00:00 Test Item Value Reference Range Interpretation Comments ANDIE SPECIES (test code = 41360) NEGATIVE G. VAGINALIS (test code = 70243) NEGATIVE T. VAGINALIS (test code = 35668) NEGATIVE VAGINAL PATHOGENS DNA [id number] 00:00:00 Test Item Value Reference Range Interpretation Comments ANDIE SPECIES (test code = 87634) NEGATIVE G. VAGINALIS (test code = 49137) NEGATIVE T. VAGINALIS (test code = 80835) NEGATIVE VAGINAL PATHOGENS DNA [id number] 00:00:00 Test Item Value Reference Range Interpretation Comments ANDIE SPECIES (test code = 10974) NEGATIVE G. VAGINALIS (test code = 70087) NEGATIVE T. VAGINALIS (test code = 21864) NEGATIVE VAGINAL PATHOGENS DNA [id number] 00:00:00 Test Item Value Reference Range Interpretation Comments ANDIE SPECIES (test code = 09279) NEGATIVE G. VAGINALIS (test code = 42860) NEGATIVE T. VAGINALIS (test code = 74353) NEGATIVE VAGINAL PATHOGENS DNA [id number] 00:00:00 Test Item Value Reference Range Interpretation Comments ANDIE SPECIES (test code = 32537) NEGATIVE G. VAGINALIS (test code = 94104) NEGATIVE T. VAGINALIS (test code = 34169) NEGATIVE VAGINAL PATHOGENS DNA [id number] 00:00:00 Test Item Value Reference Range Interpretation Comments ANDIE SPECIES (test code = 48794) NEGATIVE G. VAGINALIS (test code = 14557) NEGATIVE T. VAGINALIS (test code = 82535) NEGATIVE VAGINAL PATHOGENS DNA [id number] 00:00:00 Test Item Value Reference Range Interpretation Comments ANDIE SPECIES (test code = 65920) NEGATIVE G. VAGINALIS (test code = 84602) NEGATIVE T. VAGINALIS (test code = 28379) NEGATIVE VAGINAL PATHOGENS DNA [id number] 00:00:00 Test Item Value Reference Range Interpretation Comments ANDIE SPECIES (test code = 73647) NEGATIVE G. VAGINALIS (test code = 37258) NEGATIVE T. VAGINALIS (test code = 46347) NEGATIVE VAGINAL PATHOGENS DNA [id number] 00:00:00 Test Item Value Reference Range Interpretation Comments ANDIE SPECIES (test code = 70770) NEGATIVE G. VAGINALIS (test code = 74297) NEGATIVE T. VAGINALIS (test code = 81605) NEGATIVE VAGINAL PATHOGENS DNA [id number] 00:00:00 Test Item Value Reference Range Interpretation Comments ANDIE SPECIES (test code = 87864) NEGATIVE G. VAGINALIS (test code = 14819) NEGATIVE T. VAGINALIS (test code = 30598) NEGATIVE VAGINAL PATHOGENS DNA [id number] 00:00:00 Test Item Value Reference Range Interpretation Comments ANDIE SPECIES (test code = 27737) NEGATIVE G. VAGINALIS (test code = 74384) NEGATIVE T. VAGINALIS (test code = 71140) NEGATIVE VAGINAL PATHOGENS DNA [id number] 00:00:00 Test Item Value Reference Range Interpretation Comments ANDIE SPECIES (test code = 49033) NEGATIVE G. VAGINALIS (test code = 62272) NEGATIVE T. VAGINALIS (test code = 37158) NEGATIVE VAGINAL PATHOGENS DNA [id number] 00:00:00 Test Item Value Reference Range Interpretation Comments ANDIE SPECIES (test code = 47376) NEGATIVE G. VAGINALIS (test code = 56293) NEGATIVE T. VAGINALIS (test code = 53114) NEGATIVE VAGINAL PATHOGENS DNA [id number] 00:00:00 Test Item Value Reference Range Interpretation Comments ANDIE SPECIES (test code = 34913) NEGATIVE G. VAGINALIS (test code = 56174) NEGATIVE T. VAGINALIS (test code = 45252) NEGATIVE VAGINAL PATHOGENS DNA [id number] 00:00:00 Test Item Value Reference Range Interpretation Comments ANDIE SPECIES (test code = 93054) NEGATIVE G. VAGINALIS (test code = 55563) NEGATIVE T. VAGINALIS (test code = 84588) NEGATIVE COMPREHENSIVE METABOLIC [id number] 00:00:00 Test Item Value Reference Range Interpretation Comments GLUCOSE (test code = 2217) 138 MG/DL BUN (test code = 2208) 13 MG/DL CREATININE (test code = 2214) 0.50 MG/DL eGFR AMER. (test code 141 ML/MIN/1.73 = 87171) eGFR NON- AMER. (test 122 ML/MIN/1.73 code = 44762) CALC BUN/CREAT (test code = 26 RATIO [...] code = 2219) 41 U/L COMPREHENSIVE METABOLIC [id number] 00:00:00 Test Item Value Reference Range Interpretation Comments GLUCOSE (test code = 2217) 138 MG/DL BUN (test code = 2208) 13 MG/DL CREATININE (test code = 2214) 0.50 MG/DL eGFR AMER. (test code 141 ML/MIN/1.73 = 91233) eGFR NON- AMER. (test 122 ML/MIN/1.73 code = 62072) CALC BUN/CREAT (test code = 26 RATIO [...] (test code = 2219) 41 U/L LIPID [id number] 00:00:00 Test Item Value Reference Range Interpretation Comments CHOLESTEROL (test code = 2210) 359 MG/DL TRIGLYCERIDES (test code = 2232) 1659 MG/DL HDL CHOLESTEROL (test code = 15 MG/DL 2220) CALC LDL CHOL (test code = 2237) NOTE MG/DL RISK RATIO LDL/HDL (test code = (NOTE) RATIO 2238) LIPID [id number] 00:00:00 Test Item Value Reference Range Interpretation Comments CHOLESTEROL (test code = 2210) 359 MG/DL TRIGLYCERIDES (test code = 2232) 1659 MG/DL HDL CHOLESTEROL (test code = 15 MG/DL 2220) CALC LDL CHOL (test code = 2237) NOTE MG/DL RISK RATIO LDL/HDL (test code = (NOTE) RATIO 2238) CBC W/AUTO [id number] 00:00:00 Test Item Value Reference Range Interpretation [...] code = 1015) 287 K/UL CBC W/AUTO [id number] 00:00:00 Test Item Value Reference Range Interpretation [...] code = 1015) 287 K/UL CBC W/AUTO [id number] 00:00:00 Test Item Value Reference Range Interpretation [...] (test code = 1015) 287 K/UL HEMOGLOBIN [id number] 00:00:00 Test Item Value Reference Range Interpretation Comments HEMOGLOBIN A1c (test code = 09124) 9.8 % HEMOGLOBIN [id number] 00:00:00 Test Item Value Reference Range Interpretation Comments HEMOGLOBIN A1c (test code = 40279) 9.8 % HEMOGLOBIN [id number] 00:00:00 Test Item Value Reference Range Interpretation Comments HEMOGLOBIN A1c (test code = 77792) 9.8 % [id number] 00:00:00 Test Item Value Reference Range Interpretation Comments TSH (test code = 2821) 2.110 UIU/ML [id number] 00:00:00 Test Item Value Reference Range Interpretation Comments TSH (test code = 2821) 2.110 UIU/ML [id number] 00:00:00 Test Item Value Reference Range Interpretation Comments TSH (test code = 2821) 2.110 UIU/ML COMPREHENSIVE METABOLIC [id number] 00:00:00 Test Item Value Reference Range Interpretation Comments GLUCOSE (test code = 2217) 138 MG/DL BUN (test code = 2208) 13 MG/DL CREATININE (test code = 2214) 0.50 MG/DL eGFR AMER. (test code 141 ML/MIN/1.73 = 84834) eGFR NON- AMER. (test 122 ML/MIN/1.73 code = 98864) CALC BUN/CREAT (test code = 26 RATIO [...] code = 2219) 41 U/L COMPREHENSIVE METABOLIC [id number] 00:00:00 Test Item Value Reference Range Interpretation Comments GLUCOSE (test code = 2217) 138 MG/DL BUN (test code = 2208) 13 MG/DL CREATININE (test code = 2214) 0.50 MG/DL eGFR AMER. (test code 141 ML/MIN/1.73 = 13949) eGFR NON- AMER. (test 122 ML/MIN/1.73 code = 73807) CALC BUN/CREAT (test code = 26 RATIO [...] (test code = 2219) 41 U/L LIPID [id number] 00:00:00 Test Item Value Reference Range Interpretation Comments CHOLESTEROL (test code = 2210) 359 MG/DL TRIGLYCERIDES (test code = 2232) 1659 MG/DL HDL CHOLESTEROL (test code = 15 MG/DL 2220) CALC LDL CHOL (test code = 2237) NOTE MG/DL RISK RATIO LDL/HDL (test code = (NOTE) RATIO 2238) LIPID [id number] 00:00:00 Test Item Value Reference Range Interpretation Comments CHOLESTEROL (test code = 2210) 359 MG/DL TRIGLYCERIDES (test code = 2232) 1659 MG/DL HDL CHOLESTEROL (test code = 15 MG/DL 2220) CALC LDL CHOL (test code = 2237) NOTE MG/DL RISK RATIO LDL/HDL (test code = (NOTE) RATIO 2238) CBC W/AUTO [id number] 00:00:00 Test Item Value Reference Range Interpretation [...] code = 1015) 287 K/UL CBC W/AUTO [id number] 00:00:00 Test Item Value Reference Range Interpretation [...] code = 1015) 287 K/UL CBC W/AUTO [id number] 00:00:00 Test Item Value Reference Range Interpretation [...] (test code = 1015) 287 K/UL HEMOGLOBIN [id number] 00:00:00 Test Item Value Reference Range Interpretation Comments HEMOGLOBIN A1c (test code = 58954) 9.8 % HEMOGLOBIN [id number] 00:00:00 Test Item Value Reference Range Interpretation Comments HEMOGLOBIN A1c (test code = 01715) 9.8 % HEMOGLOBIN [id number] 00:00:00 Test Item Value Reference Range Interpretation Comments HEMOGLOBIN A1c (test code = 80064) 9.8 % [id number] 00:00:00 Test Item Value Reference Range Interpretation Comments TSH (test code = 2821) 2.110 UIU/ML [id number] 00:00:00 Test Item Value Reference Range Interpretation Comments TSH (test code = 2821) 2.110 UIU/ML [id number] 00:00:00 Test Item Value Reference Range Interpretation Comments TSH (test code = 2821) 2.110 UIU/ML COMPREHENSIVE METABOLIC [id number] 00:00:00 Test Item Value Reference Range Interpretation Comments GLUCOSE (test code = 2217) 138 MG/DL BUN (test code = 2208) 13 MG/DL CREATININE (test code = 2214) 0.50 MG/DL eGFR AMER. (test code 141 ML/MIN/1.73 = 33464) eGFR NON- AMER. (test 122 ML/MIN/1.73 code = 53895) CALC BUN/CREAT (test code = 26 RATIO [...] code = 2219) 41 U/L COMPREHENSIVE METABOLIC [id number] 00:00:00 Test Item Value Reference Range Interpretation Comments GLUCOSE (test code = 2217) 138 MG/DL BUN (test code = 2208) 13 MG/DL CREATININE (test code = 2214) 0.50 MG/DL eGFR AMER. (test code 141 ML/MIN/1.73 = 08252) eGFR NON- AMER. (test 122 ML/MIN/1.73 code = 24869) CALC BUN/CREAT (test code = 26 RATIO [...] (test code = 2219) 41 U/L LIPID [id number] 00:00:00 Test Item Value Reference Range Interpretation Comments CHOLESTEROL (test code = 2210) 359 MG/DL TRIGLYCERIDES (test code = 2232) 1659 MG/DL HDL CHOLESTEROL (test code = 15 MG/DL 2220) CALC LDL CHOL (test code = 2237) NOTE MG/DL RISK RATIO LDL/HDL (test code = (NOTE) RATIO 2238) LIPID [id number] 00:00:00 Test Item Value Reference Range Interpretation Comments CHOLESTEROL (test code = 2210) 359 MG/DL TRIGLYCERIDES (test code = 2232) 1659 MG/DL HDL CHOLESTEROL (test code = 15 MG/DL 2220) CALC LDL CHOL (test code = 2237) NOTE MG/DL RISK RATIO LDL/HDL (test code = (NOTE) RATIO 2238) CBC W/AUTO [id number] 00:00:00 Test Item Value Reference Range Interpretation [...] code = 1015) 287 K/UL CBC W/AUTO [id number] 00:00:00 Test Item Value Reference Range Interpretation [...] code = 1015) 287 K/UL CBC W/AUTO [id number] 00:00:00 Test Item Value Reference Range Interpretation [...] (test code = 1015) 287 K/UL HEMOGLOBIN [id number] 00:00:00 Test Item Value Reference Range Interpretation Comments HEMOGLOBIN A1c (test code = 19584) 9.8 % HEMOGLOBIN [id number] 00:00:00 Test Item Value Reference Range Interpretation Comments HEMOGLOBIN A1c (test code = 96966) 9.8 % HEMOGLOBIN [id number] 00:00:00 Test Item Value Reference Range Interpretation Comments HEMOGLOBIN A1c (test code = 23768) 9.8 % [id number] 00:00:00 Test Item Value Reference Range Interpretation Comments TSH (test code = 2821) 2.110 UIU/ML [id number] 00:00:00 Test Item Value Reference Range Interpretation Comments TSH (test code = 2821) 2.110 UIU/ML [id number] 00:00:00 Test Item Value Reference Range Interpretation Comments TSH (test code = 2821) 2.110 UIU/ML COMPREHENSIVE METABOLIC [id number] 00:00:00 Test Item Value Reference Range Interpretation Comments GLUCOSE (test code = 2217) 138 MG/DL BUN (test code = 2208) 13 MG/DL CREATININE (test code = 2214) 0.50 MG/DL eGFR AMER. (test code 141 ML/MIN/1.73 = 75844) eGFR NON- AMER. (test 122 ML/MIN/1.73 code = 88927) CALC BUN/CREAT (test code = 26 RATIO [...] CALC GLOBULIN (test code = 3.4 G/DL 0) CALC A/G RATIO (test code = 1.2 RATIO 2233) BILIRUBIN, TOTAL (test code = 0.2 MG/DL 2206) ALKALINE PHOSPHATASE (test 58 U/L code = 2204) AST (test code = 2218) 39 U/L ALT (test code = 2219) 41 U/L COMPREHENSIVE METABOLIC [id number] 00:00:00 Test Item Value Reference Range Interpretation Comments GLUCOSE (test code = 2217) 138 MG/DL BUN (test code = 2208) 13 MG/DL CREATININE (test code = 2214) 0.50 MG/DL eGFR AMER. (test code 141 ML/MIN/1.73 = 75600) eGFR NON- AMER. (test 122 ML/MIN/1.73 code = 09976) CALC BUN/CREAT (test code = 26 RATIO [...] (test code = 2219) 41 U/L LIPID [id number] 00:00:00 Test Item Value Reference Range Interpretation Comments CHOLESTEROL (test code = 2210) 359 MG/DL TRIGLYCERIDES (test code = 2232) 1659 MG/DL HDL CHOLESTEROL (test code = 15 MG/DL 2220) CALC LDL CHOL (test code = 2237) NOTE MG/DL RISK RATIO LDL/HDL (test code = (NOTE) RATIO 2238) LIPID [id number] 00:00:00 Test Item Value Reference Range Interpretation Comments CHOLESTEROL (test code = 2210) 359 MG/DL TRIGLYCERIDES (test code = 2232) 1659 MG/DL HDL CHOLESTEROL (test code = 15 MG/DL 2220) CALC LDL CHOL (test code = 2237) NOTE MG/DL RISK RATIO LDL/HDL (test code = (NOTE) RATIO 2238) CBC W/AUTO [id number] 00:00:00 Test Item Value Reference Range Interpretation [...] code = 1015) 287 K/UL CBC W/AUTO [id number] 00:00:00 Test Item Value Reference Range Interpretation [...] code = 1015) 287 K/UL CBC W/AUTO [id number] 00:00:00 Test Item Value Reference Range Interpretation [...] (test code = 1015) 287 K/UL HEMOGLOBIN [id number] 00:00:00 Test Item Value Reference Range Interpretation Comments HEMOGLOBIN A1c (test code = 94299) 9.8 % HEMOGLOBIN [id number] 00:00:00 Test Item Value Reference Range Interpretation Comments HEMOGLOBIN A1c (test code = 46475) 9.8 % HEMOGLOBIN [id number] 00:00:00 Test Item Value Reference Range Interpretation Comments HEMOGLOBIN A1c (test code = 66436) 9.8 % [id number] 00:00:00 Test Item Value Reference Range Interpretation Comments TSH (test code = 2821) 2.110 UIU/ML [id number] 00:00:00 Test Item Value Reference Range Interpretation Comments TSH (test code = 2821) 2.110 UIU/ML [id number] 00:00:00 Test Item Value Reference Range Interpretation Comments TSH (test code = 2821) 2.110 UIU/ML COMPREHENSIVE METABOLIC [id number] 00:00:00 Test Item Value Reference Range Interpretation Comments GLUCOSE (test code = 2217) 138 MG/DL BUN (test code = 2208) 13 MG/DL CREATININE (test code = 2214) 0.50 MG/DL eGFR AMER. (test code 141 ML/MIN/1.73 = 32581) eGFR NON- AMER. (test 122 ML/MIN/1.73 code = 28465) CALC BUN/CREAT (test code = 26 RATIO [...] CALC GLOBULIN (test code = 3.4 G/DL 0) CALC A/G RATIO (test code = 1.2 RATIO 2233) BILIRUBIN, TOTAL (test code = 0.2 MG/DL 2206) ALKALINE PHOSPHATASE (test 58 U/L code = 2204) AST (test code = 2218) 39 U/L ALT (test code = 2219) 41 U/L COMPREHENSIVE METABOLIC [id number] 00:00:00 Test Item Value Reference Range Interpretation Comments GLUCOSE (test code = 2217) 138 MG/DL BUN (test code = 2208) 13 MG/DL CREATININE (test code = 2214) 0.50 MG/DL eGFR AMER. (test code 141 ML/MIN/1.73 = 88445) eGFR NON- AMER. (test 122 ML/MIN/1.73 code = 48718) CALC BUN/CREAT (test code = 26 RATIO [...] CALC GLOBULIN (test code = 3.4 G/DL 224) CALC A/G RATIO (test code = 1.2 RATIO 2233) BILIRUBIN, TOTAL (test code = 0.2 MG/DL 2206) ALKALINE PHOSPHATASE (test 58 U/L code = 2204) AST (test code = 2218) 39 U/L ALT (test code = 2219) 41 U/L LIPID [id number] 00:00:00 Test Item Value Reference Range Interpretation Comments CHOLESTEROL (test code = 2210) 359 MG/DL TRIGLYCERIDES (test code = 2232) 1659 MG/DL HDL CHOLESTEROL (test code = 15 MG/DL 2220) CALC LDL CHOL (test code = 2237) NOTE MG/DL RISK RATIO LDL/HDL (test code = (NOTE) RATIO 2238) LIPID [id number] 00:00:00 Test Item Value Reference Range Interpretation Comments CHOLESTEROL (test code = 2210) 359 MG/DL TRIGLYCERIDES (test code = 2232) 1659 MG/DL HDL CHOLESTEROL (test code = 15 MG/DL 2220) CALC LDL CHOL (test code = 2237) NOTE MG/DL RISK RATIO LDL/HDL (test code = (NOTE) RATIO 2238) CBC W/AUTO [id number] 00:00:00 Test Item Value Reference Range Interpretation [...] code = 1015) 287 K/UL CBC W/AUTO [id number] 00:00:00 Test Item Value Reference Range Interpretation [...] code = 1015) 287 K/UL CBC W/AUTO [id number] 00:00:00 Test Item Value Reference Range Interpretation [...] (test code = 1015) 287 K/UL HEMOGLOBIN [id number] 00:00:00 Test Item Value Reference Range Interpretation Comments HEMOGLOBIN A1c (test code = 30955) 9.8 % HEMOGLOBIN [id number] 00:00:00 Test Item Value Reference Range Interpretation Comments HEMOGLOBIN A1c (test code = 52004) 9.8 % HEMOGLOBIN [id number] 00:00:00 Test Item Value Reference Range Interpretation Comments HEMOGLOBIN A1c (test code = 12005) 9.8 % [id number] 00:00:00 Test Item Value Reference Range Interpretation Comments TSH (test code = 2821) 2.110 UIU/ML [id number] 00:00:00 Test Item Value Reference Range Interpretation Comments TSH (test code = 2821) 2.110 UIU/ML [id number] 00:00:00 Test Item Value Reference Range Interpretation Comments TSH (test code = 2821) 2.110 UIU/ML COMPREHENSIVE METABOLIC [id number] 00:00:00 Test Item Value Reference Range Interpretation Comments GLUCOSE (test code = 2217) 138 MG/DL BUN (test code = 2208) 13 MG/DL CREATININE (test code = 2214) 0.50 MG/DL eGFR AMER. (test code 141 ML/MIN/1.73 = 11946) eGFR NON- AMER. (test 122 ML/MIN/1.73 code = 67472) CALC BUN/CREAT (test code = 26 RATIO [...] CALC GLOBULIN (test code = 3.4 G/DL 0) CALC A/G RATIO (test code = 1.2 RATIO 2233) BILIRUBIN, TOTAL (test code = 0.2 MG/DL 2206) ALKALINE PHOSPHATASE (test 58 U/L code = 2204) AST (test code = 2218) 39 U/L ALT (test code = 2219) 41 U/L COMPREHENSIVE METABOLIC [id number] 00:00:00 Test Item Value Reference Range Interpretation Comments GLUCOSE (test code = 2217) 138 MG/DL BUN (test code = 2208) 13 MG/DL CREATININE (test code = 2214) 0.50 MG/DL eGFR AMER. (test code 141 ML/MIN/1.73 = 96053) eGFR NON- AMER. (test 122 ML/MIN/1.73 code = 17679) CALC BUN/CREAT (test code = 26 RATIO [...] CALC GLOBULIN (test code = 3.4 G/DL 2239) CALC A/G RATIO (test code = 1.2 RATIO 2233) BILIRUBIN, TOTAL (test code = 0.2 MG/DL 2206) ALKALINE PHOSPHATASE (test 58 U/L code = 2204) AST (test code = 2218) 39 U/L ALT (test code = 2219) 41 U/L LIPID [id number] 00:00:00 Test Item Value Reference Range Interpretation Comments CHOLESTEROL (test code = 2210) 359 MG/DL TRIGLYCERIDES (test code = 2232) 1659 MG/DL HDL CHOLESTEROL (test code = 15 MG/DL 2220) CALC LDL CHOL (test code = 2237) NOTE MG/DL RISK RATIO LDL/HDL (test code = (NOTE) RATIO 2238) LIPID [id number] 00:00:00 Test Item Value Reference Range Interpretation Comments CHOLESTEROL (test code = 2210) 359 MG/DL TRIGLYCERIDES (test code = 2232) 1659 MG/DL HDL CHOLESTEROL (test code = 15 MG/DL 2220) CALC LDL CHOL (test code = 2237) NOTE MG/DL RISK RATIO LDL/HDL (test code = (NOTE) RATIO 2238) CBC W/AUTO [id number] 00:00:00 Test Item Value Reference Range Interpretation [...] code = 1015) 287 K/UL CBC W/AUTO [id number] 00:00:00 Test Item Value Reference Range Interpretation [...] code = 1015) 287 K/UL CBC W/AUTO [id number] 00:00:00 Test Item Value Reference Range Interpretation [...] (test code = 1015) 287 K/UL HEMOGLOBIN [id number] 00:00:00 Test Item Value Reference Range Interpretation Comments HEMOGLOBIN A1c (test code = 76914) 9.8 % HEMOGLOBIN [id number] 00:00:00 Test Item Value Reference Range Interpretation Comments HEMOGLOBIN A1c (test code = 02068) 9.8 % HEMOGLOBIN [id number] 00:00:00 Test Item Value Reference Range Interpretation Comments HEMOGLOBIN A1c (test code = 70812) 9.8 % [id number] 00:00:00 Test Item Value Reference Range Interpretation Comments TSH (test code = 2821) 2.110 UIU/ML [id number] 00:00:00 Test Item Value Reference Range Interpretation Comments TSH (test code = 2821) 2.110 UIU/ML [id number] 00:00:00 Test Item Value Reference Range Interpretation Comments TSH (test code = 2821) 2.110 UIU/ML COMPREHENSIVE METABOLIC [id number] 00:00:00 Test Item Value Reference Range Interpretation Comments GLUCOSE (test code = 2217) 138 MG/DL BUN (test code = 2208) 13 MG/DL CREATININE (test code = 2214) 0.50 MG/DL eGFR AMER. (test code 141 ML/MIN/1.73 = 92365) eGFR NON- AMER. (test 122 ML/MIN/1.73 code = 86865) CALC BUN/CREAT (test code = 26 RATIO [...] CALC GLOBULIN (test code = 3.4 G/DL 2239) CALC A/G RATIO (test code = 1.2 RATIO 2233) BILIRUBIN, TOTAL (test code = 0.2 MG/DL 2207) ALKALINE PHOSPHATASE (test 58 U/L code = 2204) AST (test code = 2218) 39 U/L ALT (test code = 2219) 41 U/L COMPREHENSIVE METABOLIC [id number] 00:00:00 Test Item Value Reference Range Interpretation Comments GLUCOSE (test code = 2217) 138 MG/DL BUN (test code = 2208) 13 MG/DL CREATININE (test code = 2214) 0.50 MG/DL eGFR AMER. (test code 141 ML/MIN/1.73 = 35202) eGFR NON- AMER. (test 122 ML/MIN/1.73 code = 65330) CALC BUN/CREAT (test code = 26 RATIO [...] (test code = 2219) 41 U/L LIPID [id number] 00:00:00 Test Item Value Reference Range Interpretation Comments CHOLESTEROL (test code = 2210) 359 MG/DL TRIGLYCERIDES (test code = 2232) 1659 MG/DL HDL CHOLESTEROL (test code = 15 MG/DL 2220) CALC LDL CHOL (test code = 2237) NOTE MG/DL RISK RATIO LDL/HDL (test code = (NOTE) RATIO 2238) LIPID [id number] 00:00:00 Test Item Value Reference Range Interpretation Comments CHOLESTEROL (test code = 2210) 359 MG/DL TRIGLYCERIDES (test code = 2232) 1659 MG/DL HDL CHOLESTEROL (test code = 15 MG/DL 2220) CALC LDL CHOL (test code = 2237) NOTE MG/DL RISK RATIO LDL/HDL (test code = (NOTE) RATIO 2238) CBC W/AUTO [id number] 00:00:00 Test Item Value Reference Range Interpretation [...] code = 1015) 287 K/UL CBC W/AUTO [id number] 00:00:00 Test Item Value Reference Range Interpretation [...] code = 1015) 287 K/UL CBC W/AUTO [id number] 00:00:00 Test Item Value Reference Range Interpretation [...] (test code = 1015) 287 K/UL HEMOGLOBIN [id number] 00:00:00 Test Item Value Reference Range Interpretation Comments HEMOGLOBIN A1c (test code = 75052) 9.8 % HEMOGLOBIN [id number] 00:00:00 Test Item Value Reference Range Interpretation Comments HEMOGLOBIN A1c (test code = 33180) 9.8 % HEMOGLOBIN [id number] 00:00:00 Test Item Value Reference Range Interpretation Comments HEMOGLOBIN A1c (test code = 69139) 9.8 % [id number] 00:00:00 Test Item Value Reference Range Interpretation Comments TSH (test code = 2821) 2.110 UIU/ML [id number] 00:00:00 Test Item Value Reference Range Interpretation Comments TSH (test code = 2821) 2.110 UIU/ML [id number] 00:00:00 Test Item Value Reference Range Interpretation Comments TSH (test code = 2821) 2.110 UIU/ML COMPREHENSIVE METABOLIC [id number] 00:00:00 Test Item Value Reference Range Interpretation Comments GLUCOSE (test code = 2217) 138 MG/DL BUN (test code = 2208) 13 MG/DL CREATININE (test code = 2214) 0.50 MG/DL eGFR AMER. (test code 141 ML/MIN/1.73 = 14928) eGFR NON- AMER. (test 122 ML/MIN/1.73 code = 59173) CALC BUN/CREAT (test code = 26 RATIO [...] (test code = 2219) 41 U/L LIPID [id number] 00:00:00 Test Item Value Reference Range Interpretation Comments CHOLESTEROL (test code = 2210) 359 MG/DL TRIGLYCERIDES (test code = 2232) 1659 MG/DL HDL CHOLESTEROL (test code = 15 MG/DL 0) CALC LDL CHOL (test code = 2237) NOTE MG/DL RISK RATIO LDL/HDL (test code = (NOTE) RATIO 2238) CBC W/AUTO [id number] 00:00:00 Test Item Value Reference Range Interpretation [...] code = 1015) 287 K/UL CBC W/AUTO [id number] 00:00:00 Test Item Value Reference Range Interpretation [...] (test code = 1015) 287 K/UL HEMOGLOBIN [id number] 00:00:00 Test Item Value Reference Range Interpretation Comments HEMOGLOBIN A1c (test code = 92254) 9.8 % HEMOGLOBIN [id number] 00:00:00 Test Item Value Reference Range Interpretation Comments HEMOGLOBIN A1c (test code = 29155) 9.8 % COMPREHENSIVE METABOLIC [id number] 00:00:00 Test Item Value Reference Range Interpretation Comments GLUCOSE (test code = 2217) 138 MG/DL BUN (test code = 2208) 13 MG/DL CREATININE (test code = 2214) 0.50 MG/DL eGFR AMER. (test code 141 ML/MIN/1.73 = 32712) eGFR NON- AMER. (test 122 ML/MIN/1.73 code = 30622) CALC BUN/CREAT (test code = 26 RATIO [...] code = 2219) 41 U/L COMPREHENSIVE METABOLIC [id number] 00:00:00 Test Item Value Reference Range Interpretation Comments GLUCOSE (test code = 2217) 138 MG/DL BUN (test code = 2208) 13 MG/DL CREATININE (test code = 2214) 0.50 MG/DL eGFR AMER. (test code 141 ML/MIN/1.73 = 66334) eGFR NON- AMER. (test 122 ML/MIN/1.73 code = 97556) CALC BUN/CREAT (test code = 26 RATIO [...] CALC GLOBULIN (test code = 3.4 G/DL 2239) CALC A/G RATIO (test code = 1.2 RATIO 2233) BILIRUBIN, TOTAL (test code = 0.2 MG/DL 2206) ALKALINE PHOSPHATASE (test 58 U/L code = 2204) AST (test code = 2218) 39 U/L ALT (test code = 2219) 41 U/L LIPID [id number] 00:00:00 Test Item Value Reference Range Interpretation Comments CHOLESTEROL (test code = 2210) 359 MG/DL TRIGLYCERIDES (test code = 2232) 1659 MG/DL HDL CHOLESTEROL (test code = 15 MG/DL 2220) CALC LDL CHOL (test code = 2237) NOTE MG/DL RISK RATIO LDL/HDL (test code = (NOTE) RATIO 2238) LIPID [id number] 00:00:00 Test Item Value Reference Range Interpretation Comments CHOLESTEROL (test code = 2210) 359 MG/DL TRIGLYCERIDES (test code = 2232) 1659 MG/DL HDL CHOLESTEROL (test code = 15 MG/DL 2220) CALC LDL CHOL (test code = 2237) NOTE MG/DL RISK RATIO LDL/HDL (test code = (NOTE) RATIO 2238) [id number] 00:00:00 Test Item Value Reference Range Interpretation Comments TSH (test code = 2821) 2.110 UIU/ML CBC W/AUTO [id number] 00:00:00 Test Item Value Reference Range Interpretation [...] code = 1015) 287 K/UL CBC W/AUTO [id number] 00:00:00 Test Item Value Reference Range Interpretation [...] code = 1015) 287 K/UL CBC W/AUTO [id number] 00:00:00 Test Item Value Reference Range Interpretation [...] (test code = 1015) 287 K/UL HEMOGLOBIN [id number] 00:00:00 Test Item Value Reference Range Interpretation Comments HEMOGLOBIN A1c (test code = 90260) 9.8 % HEMOGLOBIN [id number] 00:00:00 Test Item Value Reference Range Interpretation Comments HEMOGLOBIN A1c (test code = 18053) 9.8 % HEMOGLOBIN [id number] 00:00:00 Test Item Value Reference Range Interpretation Comments HEMOGLOBIN A1c (test code = 45876) 9.8 % [id number] 00:00:00 Test Item Value Reference Range Interpretation Comments TSH (test code = 2821) 2.110 UIU/ML [id number] 00:00:00 Test Item Value Reference Range Interpretation Comments TSH (test code = 2821) 2.110 UIU/ML [id number] 00:00:00 Test Item Value Reference Range Interpretation Comments TSH (test code = 2821) 2.110 UIU/ML [id number] 00:00:00 Test Item Value Reference Range Interpretation Comments TSH (test code = 2821) 2.110 UIU/ML COMPREHENSIVE METABOLIC [id number] 00:00:00 Test Item Value Reference Range Interpretation Comments GLUCOSE (test code = 2217) 138 MG/DL BUN (test code = 2208) 13 MG/DL CREATININE (test code = 2214) 0.50 MG/DL eGFR AMER. (test code 141 ML/MIN/1.73 = 27096) eGFR NON- AMER. (test 122 ML/MIN/1.73 code = 07730) CALC BUN/CREAT (test code = 26 RATIO [...] code = 2219) 41 U/L COMPREHENSIVE METABOLIC [id number] 00:00:00 Test Item Value Reference Range Interpretation Comments GLUCOSE (test code = 2217) 138 MG/DL BUN (test code = 2208) 13 MG/DL CREATININE (test code = 2214) 0.50 MG/DL eGFR AMER. (test code 141 ML/MIN/1.73 = 10701) eGFR NON- AMER. (test 122 ML/MIN/1.73 code = 45041) CALC BUN/CREAT (test code = 26 RATIO [...] (test code = 2219) 41 U/L LIPID [id number] 00:00:00 Test Item Value Reference Range Interpretation Comments CHOLESTEROL (test code = 2210) 359 MG/DL TRIGLYCERIDES (test code = 2232) 1659 MG/DL HDL CHOLESTEROL (test code = 15 MG/DL 2220) CALC LDL CHOL (test code = 2237) NOTE MG/DL RISK RATIO LDL/HDL (test code = (NOTE) RATIO 2238) LIPID [id number] 00:00:00 Test Item Value Reference Range Interpretation Comments CHOLESTEROL (test code = 2210) 359 MG/DL TRIGLYCERIDES (test code = 2232) 1659 MG/DL HDL CHOLESTEROL (test code = 15 MG/DL 2220) CALC LDL CHOL (test code = 2237) NOTE MG/DL RISK RATIO LDL/HDL (test code = (NOTE) RATIO 2238) CBC W/AUTO [id number] 00:00:00 Test Item Value Reference Range Interpretation [...] code = 1015) 287 K/UL CBC W/AUTO [id number] 00:00:00 Test Item Value Reference Range Interpretation [...] code = 1015) 287 K/UL CBC W/AUTO [id number] 00:00:00 Test Item Value Reference Range Interpretation [...] (test code = 1015) 287 K/UL HEMOGLOBIN [id number] 00:00:00 Test Item Value Reference Range Interpretation Comments HEMOGLOBIN A1c (test code = 55306) 9.8 % HEMOGLOBIN [id number] 00:00:00 Test Item Value Reference Range Interpretation Comments HEMOGLOBIN A1c (test code = 01297) 9.8 % HEMOGLOBIN [id number] 00:00:00 Test Item Value Reference Range Interpretation Comments HEMOGLOBIN A1c (test code = 84605) 9.8 % [id number] 00:00:00 Test Item Value Reference Range Interpretation Comments TSH (test code = 2821) 2.110 UIU/ML [id number] 00:00:00 Test Item Value Reference Range Interpretation Comments TSH (test code = 2821) 2.110 UIU/ML [id number] 00:00:00 Test Item Value Reference Range Interpretation Comments TSH (test code = 2821) 2.110 UIU/ML COMPREHENSIVE METABOLIC [id number] 00:00:00 Test Item Value Reference Range Interpretation Comments GLUCOSE (test code = 2217) 138 MG/DL BUN (test code = 2208) 13 MG/DL CREATININE (test code = 2214) 0.50 MG/DL eGFR AMER. (test code 141 ML/MIN/1.73 = 81273) eGFR NON- AMER. (test 122 ML/MIN/1.73 code = 56628) CALC BUN/CREAT (test code = 26 RATIO [...] BILIRUBIN, TOTAL (test code = 0.2 MG/DL 220) ALKALINE PHOSPHATASE (test 58 U/L code = 2204) AST (test code = 2218) 39 U/L ALT (test code = 2219) 41 U/L COMPREHENSIVE METABOLIC [id number] 00:00:00 Test Item Value Reference Range Interpretation Comments GLUCOSE (test code = 2217) 138 MG/DL BUN (test code = 2208) 13 MG/DL CREATININE (test code = 2214) 0.50 MG/DL eGFR AMER. (test code 141 ML/MIN/1.73 = 01939) eGFR NON- AMER. (test 122 ML/MIN/1.73 code = 62351) CALC BUN/CREAT (test code = 26 RATIO [...] (test code = 2219) 41 U/L LIPID [id number] 00:00:00 Test Item Value Reference Range Interpretation Comments CHOLESTEROL (test code = 2210) 359 MG/DL TRIGLYCERIDES (test code = 2232) 1659 MG/DL HDL CHOLESTEROL (test code = 15 MG/DL 2220) CALC LDL CHOL (test code = 2237) NOTE MG/DL RISK RATIO LDL/HDL (test code = (NOTE) RATIO 2238) LIPID [id number] 00:00:00 Test Item Value Reference Range Interpretation Comments CHOLESTEROL (test code = 2210) 359 MG/DL TRIGLYCERIDES (test code = 2232) 1659 MG/DL HDL CHOLESTEROL (test code = 15 MG/DL 2220) CALC LDL CHOL (test code = 2237) NOTE MG/DL RISK RATIO LDL/HDL (test code = (NOTE) RATIO 2238) CBC W/AUTO [id number] 00:00:00 Test Item Value Reference Range Interpretation [...] code = 1015) 287 K/UL CBC W/AUTO [id number] 00:00:00 Test Item Value Reference Range Interpretation [...] code = 1015) 287 K/UL CBC W/AUTO [id number] 00:00:00 Test Item Value Reference Range Interpretation [...] (test code = 1015) 287 K/UL HEMOGLOBIN [id number] 00:00:00 Test Item Value Reference Range Interpretation Comments HEMOGLOBIN A1c (test code = 22992) 9.8 % HEMOGLOBIN [id number] 00:00:00 Test Item Value Reference Range Interpretation Comments HEMOGLOBIN A1c (test code = 41061) 9.8 % HEMOGLOBIN [id number] 00:00:00 Test Item Value Reference Range Interpretation Comments HEMOGLOBIN A1c (test code = 94323) 9.8 % [id number] 00:00:00 Test Item Value Reference Range Interpretation Comments TSH (test code = 2821) 2.110 UIU/ML [id number] 00:00:00 Test Item Value Reference Range Interpretation Comments TSH (test code = 2821) 2.110 UIU/ML [id number] 00:00:00 Test Item Value Reference Range Interpretation Comments TSH (test code = 2821) 2.110 UIU/ML LIPID [id number] 00:00:00 Test Item Value Reference Range Interpretation Comments CHOLESTEROL (test code = 2210) 195 MG/DL TRIGLYCERIDES (test code = 2232) 505 MG/DL HDL CHOLESTEROL (test code = 35 MG/DL 2220) CALC LDL CHOL (test code = 2237) NOTE MG/DL RISK RATIO LDL/HDL (test code = (NOTE) RATIO 2238) LIPID [id number] 00:00:00 Test Item Value Reference Range Interpretation [...] (test code = 2821) 2.000 UIU/ML LIPID [id number] 00:00:00 Test Item Value Reference Range Interpretation Comments CHOLESTEROL (test code = 2210) 195 MG/DL TRIGLYCERIDES (test code = 2232) 505 MG/DL HDL CHOLESTEROL (test code = 35 MG/DL 2220) CALC LDL CHOL (test code = 2237) NOTE MG/DL RISK RATIO LDL/HDL (test code = (NOTE) RATIO 2238) LIPID [id number] 00:00:00 Test Item Value Reference Range Interpretation [...] (test code = 2821) 2.000 UIU/ML LIPID [id number] 00:00:00 Test Item Value Reference Range Interpretation Comments CHOLESTEROL (test code = 2210) 195 MG/DL TRIGLYCERIDES (test code = 2232) 505 MG/DL HDL CHOLESTEROL (test code = 35 MG/DL 2220) CALC LDL CHOL (test code = 2237) NOTE MG/DL RISK RATIO LDL/HDL (test code = (NOTE) RATIO 2238) LIPID [id number] 00:00:00 Test Item Value Reference Range Interpretation [...] (test code = 2821) 2.000 UIU/ML LIPID [id number] 00:00:00 Test Item Value Reference Range Interpretation Comments CHOLESTEROL (test code = 2210) 195 MG/DL TRIGLYCERIDES (test code = 2232) 505 MG/DL HDL CHOLESTEROL (test code = 35 MG/DL 2220) CALC LDL CHOL (test code = 2237) NOTE MG/DL RISK RATIO LDL/HDL (test code = (NOTE) RATIO 2238) LIPID [id number] 00:00:00 Test Item Value Reference Range Interpretation [...] (test code = 2821) 2.000 UIU/ML LIPID [id number] 00:00:00 Test Item Value Reference Range Interpretation Comments CHOLESTEROL (test code = 2210) 195 MG/DL TRIGLYCERIDES (test code = 2232) 505 MG/DL HDL CHOLESTEROL (test code = 35 MG/DL 2220) CALC LDL CHOL (test code = 2237) NOTE MG/DL RISK RATIO LDL/HDL (test code = (NOTE) RATIO 2238) LIPID [id number] 00:00:00 Test Item Value Reference Range Interpretation [...] (test code = 2821) 2.000 UIU/ML LIPID [id number] 00:00:00 Test Item Value Reference Range Interpretation Comments CHOLESTEROL (test code = 2210) 195 MG/DL TRIGLYCERIDES (test code = 2232) 505 MG/DL HDL CHOLESTEROL (test code = 35 MG/DL 2220) CALC LDL CHOL (test code = 2237) NOTE MG/DL RISK RATIO LDL/HDL (test code = (NOTE) RATIO 2238) LIPID [id number] 00:00:00 Test Item Value Reference Range Interpretation [...] (test code = 2821) 2.000 UIU/ML LIPID [id number] 00:00:00 Test Item Value Reference Range Interpretation Comments CHOLESTEROL (test code = 2210) 195 MG/DL TRIGLYCERIDES (test code = 2232) 505 MG/DL HDL CHOLESTEROL (test code = 35 MG/DL 2220) CALC LDL CHOL (test code = 2237) NOTE MG/DL RISK RATIO LDL/HDL (test code = (NOTE) RATIO 2238) LIPID [id number] 00:00:00 Test Item Value Reference Range Interpretation [...] (test code = 2821) 2.000 UIU/ML LIPID [id number] 00:00:00 Test Item Value Reference Range Interpretation [...] (test code = 2821) 2.000 UIU/ML LIPID [id number] 00:00:00 Test Item Value Reference Range Interpretation Comments CHOLESTEROL (test code = 2210) 195 MG/DL TRIGLYCERIDES (test code = 2232) 505 MG/DL HDL CHOLESTEROL (test code = 35 MG/DL 2220) CALC LDL CHOL (test code = 2237) NOTE MG/DL RISK RATIO LDL/HDL (test code = (NOTE) RATIO 2238) LIPID [id number] 00:00:00 Test Item Value Reference Range Interpretation [...] (test code = 2821) 2.000 UIU/ML LIPID [id number] 00:00:00 Test Item Value Reference Range Interpretation Comments CHOLESTEROL (test code = 2210) 195 MG/DL TRIGLYCERIDES (test code = 2232) 505 MG/DL HDL CHOLESTEROL (test code = 35 MG/DL 2220) CALC LDL CHOL (test code = 2237) NOTE MG/DL RISK RATIO LDL/HDL (test code = (NOTE) RATIO 2238) LIPID [id number] 00:00:00 Test Item Value Reference Range Interpretation [...] (test code = 2821) 2.000 UIU/ML LIPID [id number] 00:00:00 Test Item Value Reference Range Interpretation Comments CHOLESTEROL (test code = 2210) 195 MG/DL TRIGLYCERIDES (test code = 2232) 505 MG/DL HDL CHOLESTEROL (test code = 35 MG/DL 2220) CALC LDL CHOL (test code = 2237) NOTE MG/DL RISK RATIO LDL/HDL (test code = (NOTE) RATIO 2238) LIPID [id number] 00:00:00 Test Item Value Reference Range Interpretation [...] code = 2821) 2.000 UIU/ML COMPREHENSIVE METABOLIC [id number] 00:00:00 Test Item Value Reference Range Interpretation Comments GLUCOSE (test code = 2217) 154 MG/DL BUN (test code = 2208) 12 MG/DL CREATININE (test code = 2214) 0.54 MG/DL eGFR AMER. (test code 139 ML/MIN/1.73 = 22906) eGFR NON- AMER. (test 120 ML/MIN/1.73 code = 16514) CALC BUN/CREAT (test code = 22 RATIO 2235) SODIUM (test code = 2231) 141 MEQ/L POTASSIUM (test code = 2228) 4.3 MEQ/L CHLORIDE (test code = 2215) 101 MEQ/L CARBON DIOXIDE (test code = 26 MEQ/L 6) CALCIUM (test code = 2209) 9.8 MG/DL [...] code = 2219) 22 U/L COMPREHENSIVE METABOLIC [id number] 00:00:00 Test Item Value Reference Range Interpretation Comments GLUCOSE (test code = 2217) 154 MG/DL BUN (test code = 2208) 12 MG/DL CREATININE (test code = 2214) 0.54 MG/DL eGFR AMER. (test code 139 ML/MIN/1.73 = 49026) eGFR NON- AMER. (test 120 ML/MIN/1.73 code = 71919) CALC BUN/CREAT (test code = 22 RATIO [...] (test code = 2219) 22 U/L LIPID [id number] 00:00:00 Test Item Value Reference Range Interpretation Comments CHOLESTEROL (test code = 2210) 243 MG/DL TRIGLYCERIDES (test code = 2232) 1140 MG/DL HDL CHOLESTEROL (test code = 31 MG/DL 2220) CALC LDL CHOL (test code = 2237) NOTE MG/DL RISK RATIO LDL/HDL (test code = (NOTE) RATIO 2238) LIPID [id number] 00:00:00 Test Item Value Reference Range Interpretation Comments CHOLESTEROL (test code = 2210) 243 MG/DL TRIGLYCERIDES (test code = 2232) 1140 MG/DL HDL CHOLESTEROL (test code = 31 MG/DL 2220) CALC LDL CHOL (test code = 2237) NOTE MG/DL RISK RATIO LDL/HDL (test code = (NOTE) RATIO 2238) CBC W/AUTO [id number] 00:00:00 Test Item Value Reference Range Interpretation [...] code = 1015) 229 K/UL CBC W/AUTO [id number] 00:00:00 Test Item Value Reference Range Interpretation [...] code = 1015) 229 K/UL CBC W/AUTO [id number] 00:00:00 Test Item Value Reference Range Interpretation [...] (test code = 1015) 229 K/UL HEMOGLOBIN [id number] 00:00:00 Test Item Value Reference Range Interpretation Comments HEMOGLOBIN A1c (test code = 18007) 7.7 % HEMOGLOBIN [id number] 00:00:00 Test Item Value Reference Range Interpretation Comments HEMOGLOBIN A1c (test code = 61969) 7.7 % HEMOGLOBIN [id number] 00:00:00 Test Item Value Reference Range Interpretation Comments HEMOGLOBIN A1c (test code = 97350) 7.7 % COMPREHENSIVE METABOLIC [id number] 00:00:00 Test Item Value Reference Range Interpretation Comments GLUCOSE (test code = 2217) 154 MG/DL BUN (test code = 2208) 12 MG/DL CREATININE (test code = 2214) 0.54 MG/DL eGFR AMER. (test code 139 ML/MIN/1.73 = 33690) eGFR NON- AMER. (test 120 ML/MIN/1.73 code = 89503) CALC BUN/CREAT (test code = 22 RATIO [...] code = 2219) 22 U/L COMPREHENSIVE METABOLIC [id number] 00:00:00 Test Item Value Reference Range Interpretation Comments GLUCOSE (test code = 2217) 154 MG/DL BUN (test code = 2208) 12 MG/DL CREATININE (test code = 2214) 0.54 MG/DL eGFR AMER. (test code 139 ML/MIN/1.73 = 68117) eGFR NON- AMER. (test 120 ML/MIN/1.73 code = 82125) CALC BUN/CREAT (test code = 22 RATIO [...] (test code = 2219) 22 U/L LIPID [id number] 00:00:00 Test Item Value Reference Range Interpretation Comments CHOLESTEROL (test code = 2210) 243 MG/DL TRIGLYCERIDES (test code = 2232) 1140 MG/DL HDL CHOLESTEROL (test code = 31 MG/DL 2220) CALC LDL CHOL (test code = 2237) NOTE MG/DL RISK RATIO LDL/HDL (test code = (NOTE) RATIO 2238) LIPID [id number] 00:00:00 Test Item Value Reference Range Interpretation Comments CHOLESTEROL (test code = 2210) 243 MG/DL TRIGLYCERIDES (test code = 2232) 1140 MG/DL HDL CHOLESTEROL (test code = 31 MG/DL 2220) CALC LDL CHOL (test code = 2237) NOTE MG/DL RISK RATIO LDL/HDL (test code = (NOTE) RATIO 2238) CBC W/AUTO [id number] 00:00:00 Test Item Value Reference Range Interpretation [...] code = 1015) 229 K/UL CBC W/AUTO [id number] 00:00:00 Test Item Value Reference Range Interpretation [...] code = 1015) 229 K/UL CBC W/AUTO [id number] 00:00:00 Test Item Value Reference Range Interpretation [...] (test code = 1015) 229 K/UL HEMOGLOBIN [id number] 00:00:00 Test Item Value Reference Range Interpretation Comments HEMOGLOBIN A1c (test code = 74888) 7.7 % HEMOGLOBIN [id number] 00:00:00 Test Item Value Reference Range Interpretation Comments HEMOGLOBIN A1c (test code = 24620) 7.7 % HEMOGLOBIN [id number] 00:00:00 Test Item Value Reference Range Interpretation Comments HEMOGLOBIN A1c (test code = 86833) 7.7 % COMPREHENSIVE METABOLIC [id number] 00:00:00 Test Item Value Reference Range Interpretation Comments GLUCOSE (test code = 2217) 154 MG/DL BUN (test code = 2208) 12 MG/DL CREATININE (test code = 2214) 0.54 MG/DL eGFR AMER. (test code 139 ML/MIN/1.73 = 30215) eGFR NON- AMER. (test 120 ML/MIN/1.73 code = 17683) CALC BUN/CREAT (test code = 22 RATIO [...] code = 2219) 22 U/L COMPREHENSIVE METABOLIC [id number] 00:00:00 Test Item Value Reference Range Interpretation Comments GLUCOSE (test code = 2217) 154 MG/DL BUN (test code = 2208) 12 MG/DL CREATININE (test code = 2214) 0.54 MG/DL eGFR AMER. (test code 139 ML/MIN/1.73 = 77172) eGFR NON- AMER. (test 120 ML/MIN/1.73 code = 96349) CALC BUN/CREAT (test code = 22 RATIO [...] (test code = 2219) 22 U/L LIPID [id number] 00:00:00 Test Item Value Reference Range Interpretation Comments CHOLESTEROL (test code = 2210) 243 MG/DL TRIGLYCERIDES (test code = 2232) 1140 MG/DL HDL CHOLESTEROL (test code = 31 MG/DL 2220) CALC LDL CHOL (test code = 2237) NOTE MG/DL RISK RATIO LDL/HDL (test code = (NOTE) RATIO 2238) LIPID [id number] 00:00:00 Test Item Value Reference Range Interpretation Comments CHOLESTEROL (test code = 2210) 243 MG/DL TRIGLYCERIDES (test code = 2232) 1140 MG/DL HDL CHOLESTEROL (test code = 31 MG/DL 2220) CALC LDL CHOL (test code = 2237) NOTE MG/DL RISK RATIO LDL/HDL (test code = (NOTE) RATIO 2238) CBC W/AUTO [id number] 00:00:00 Test Item Value Reference Range Interpretation [...] code = 1015) 229 K/UL CBC W/AUTO [id number] 00:00:00 Test Item Value Reference Range Interpretation [...] code = 1015) 229 K/UL CBC W/AUTO [id number] 00:00:00 Test Item Value Reference Range Interpretation [...] (test code = 1015) 229 K/UL HEMOGLOBIN [id number] 00:00:00 Test Item Value Reference Range Interpretation Comments HEMOGLOBIN A1c (test code = 17587) 7.7 % HEMOGLOBIN [id number] 00:00:00 Test Item Value Reference Range Interpretation Comments HEMOGLOBIN A1c (test code = 55876) 7.7 % HEMOGLOBIN [id number] 00:00:00 Test Item Value Reference Range Interpretation Comments HEMOGLOBIN A1c (test code = 27803) 7.7 % COMPREHENSIVE METABOLIC [id number] 00:00:00 Test Item Value Reference Range Interpretation Comments GLUCOSE (test code = 2217) 154 MG/DL BUN (test code = 2208) 12 MG/DL CREATININE (test code = 2214) 0.54 MG/DL eGFR AMER. (test code 139 ML/MIN/1.73 = 29114) eGFR NON- AMER. (test 120 ML/MIN/1.73 code = 96239) CALC BUN/CREAT (test code = 22 RATIO 2235) SODIUM (test code = 2231) 141 MEQ/L POTASSIUM (test code = 2228) 4.3 MEQ/L CHLORIDE (test code = 2215) 101 MEQ/L CARBON DIOXIDE (test code = 26 MEQ/L 220) CALCIUM (test code = 2209) 9.8 MG/DL [...] code = 2219) 22 U/L COMPREHENSIVE METABOLIC [id number] 00:00:00 Test Item Value Reference Range Interpretation Comments GLUCOSE (test code = 2217) 154 MG/DL BUN (test code = 2208) 12 MG/DL CREATININE (test code = 2214) 0.54 MG/DL eGFR AMER. (test code 139 ML/MIN/1.73 = 80067) eGFR NON- AMER. (test 120 ML/MIN/1.73 code = 97448) CALC BUN/CREAT (test code = 22 RATIO 2235) SODIUM (test code = 2231) 141 MEQ/L POTASSIUM (test code = 2228) 4.3 MEQ/L CHLORIDE (test code = 2215) 101 MEQ/L CARBON DIOXIDE (test code = 26 MEQ/L 2206) CALCIUM (test code = 2209) 9.8 MG/DL PROTEIN, TOTAL (test code = 7.6 G/DL 2229) ALBUMIN (test code = 2201) 4.7 G/DL CALC GLOBULIN (test code = 2.9 G/DL 2240) CALC A/G RATIO (test code = 1.6 RATIO 2234) BILIRUBIN, TOTAL (test code = 0.1 MG/DL 220) ALKALINE PHOSPHATASE (test 42 U/L code = 2204) AST (test code = 2218) 17 U/L ALT (test code = 2219) 22 U/L LIPID [id number] 00:00:00 Test Item Value Reference Range Interpretation Comments CHOLESTEROL (test code = 2210) 243 MG/DL TRIGLYCERIDES (test code = 2232) 1140 MG/DL HDL CHOLESTEROL (test code = 31 MG/DL 2220) CALC LDL CHOL (test code = 2237) NOTE MG/DL RISK RATIO LDL/HDL (test code = (NOTE) RATIO 2238) LIPID [id number] 00:00:00 Test Item Value Reference Range Interpretation Comments CHOLESTEROL (test code = 2210) 243 MG/DL TRIGLYCERIDES (test code = 2232) 1140 MG/DL HDL CHOLESTEROL (test code = 31 MG/DL 2220) CALC LDL CHOL (test code = 2237) NOTE MG/DL RISK RATIO LDL/HDL (test code = (NOTE) RATIO 2238) CBC W/AUTO [id number] 00:00:00 Test Item Value Reference Range Interpretation [...] code = 1015) 229 K/UL CBC W/AUTO [id number] 00:00:00 Test Item Value Reference Range Interpretation [...] code = 1015) 229 K/UL CBC W/AUTO [id number] 00:00:00 Test Item Value Reference Range Interpretation [...] (test code = 1015) 229 K/UL HEMOGLOBIN [id number] 00:00:00 Test Item Value Reference Range Interpretation Comments HEMOGLOBIN A1c (test code = 30792) 7.7 % HEMOGLOBIN [id number] 00:00:00 Test Item Value Reference Range Interpretation Comments HEMOGLOBIN A1c (test code = 42472) 7.7 % HEMOGLOBIN [id number] 00:00:00 Test Item Value Reference Range Interpretation Comments HEMOGLOBIN A1c (test code = 24511) 7.7 % COMPREHENSIVE METABOLIC [id number] 00:00:00 Test Item Value Reference Range Interpretation Comments GLUCOSE (test code = 2217) 154 MG/DL BUN (test code = 2208) 12 MG/DL CREATININE (test code = 2214) 0.54 MG/DL eGFR AMER. (test code 139 ML/MIN/1.73 = 24700) eGFR NON- AMER. (test 120 ML/MIN/1.73 code = 59955) CALC BUN/CREAT (test code = 22 RATIO 2235) SODIUM (test code = 2231) 141 MEQ/L POTASSIUM (test code = 2228) 4.3 MEQ/L CHLORIDE (test code = 2215) 101 MEQ/L CARBON DIOXIDE (test code = 26 MEQ/L 220) CALCIUM (test code = 2209) 9.8 MG/DL [...] code = 2219) 22 U/L COMPREHENSIVE METABOLIC [id number] 00:00:00 Test Item Value Reference Range Interpretation Comments GLUCOSE (test code = 2217) 154 MG/DL BUN (test code = 2208) 12 MG/DL CREATININE (test code = 2214) 0.54 MG/DL eGFR AMER. (test code 139 ML/MIN/1.73 = 69591) eGFR NON- AMER. (test 120 ML/MIN/1.73 code = 76747) CALC BUN/CREAT (test code = 22 RATIO [...] BILIRUBIN, TOTAL (test code = 0.1 MG/DL 2207) ALKALINE PHOSPHATASE (test 42 U/L code = 2204) AST (test code = 2218) 17 U/L ALT (test code = 2219) 22 U/L LIPID [id number] 00:00:00 Test Item Value Reference Range Interpretation Comments CHOLESTEROL (test code = 2210) 243 MG/DL TRIGLYCERIDES (test code = 2232) 1140 MG/DL HDL CHOLESTEROL (test code = 31 MG/DL 2220) CALC LDL CHOL (test code = 2237) NOTE MG/DL RISK RATIO LDL/HDL (test code = (NOTE) RATIO 2238) LIPID [id number] 00:00:00 Test Item Value Reference Range Interpretation Comments CHOLESTEROL (test code = 2210) 243 MG/DL TRIGLYCERIDES (test code = 2232) 1140 MG/DL HDL CHOLESTEROL (test code = 31 MG/DL 2220) CALC LDL CHOL (test code = 2237) NOTE MG/DL RISK RATIO LDL/HDL (test code = (NOTE) RATIO 2238) CBC W/AUTO [id number] 00:00:00 Test Item Value Reference Range Interpretation [...] code = 1015) 229 K/UL CBC W/AUTO [id number] 00:00:00 Test Item Value Reference Range Interpretation [...] code = 1015) 229 K/UL CBC W/AUTO [id number] 00:00:00 Test Item Value Reference Range Interpretation [...] (test code = 1015) 229 K/UL HEMOGLOBIN [id number] 00:00:00 Test Item Value Reference Range Interpretation Comments HEMOGLOBIN A1c (test code = 65034) 7.7 % HEMOGLOBIN [id number] 00:00:00 Test Item Value Reference Range Interpretation Comments HEMOGLOBIN A1c (test code = 35860) 7.7 % HEMOGLOBIN [id number] 00:00:00 Test Item Value Reference Range Interpretation Comments HEMOGLOBIN A1c (test code = 75625) 7.7 % COMPREHENSIVE METABOLIC [id number] 00:00:00 Test Item Value Reference Range Interpretation Comments GLUCOSE (test code = 2217) 154 MG/DL BUN (test code = 2208) 12 MG/DL CREATININE (test code = 2214) 0.54 MG/DL eGFR AMER. (test code 139 ML/MIN/1.73 = 16890) eGFR NON- AMER. (test 120 ML/MIN/1.73 code = 84362) CALC BUN/CREAT (test code = 22 RATIO 2235) SODIUM (test code = 2231) 141 MEQ/L POTASSIUM (test code = 2228) 4.3 MEQ/L CHLORIDE (test code = 2215) 101 MEQ/L CARBON DIOXIDE (test code = 26 MEQ/L 220) CALCIUM (test code = 2209) 9.8 MG/DL [...] code = 2219) 22 U/L COMPREHENSIVE METABOLIC [id number] 00:00:00 Test Item Value Reference Range Interpretation Comments GLUCOSE (test code = 2217) 154 MG/DL BUN (test code = 2208) 12 MG/DL CREATININE (test code = 2214) 0.54 MG/DL eGFR AMER. (test code 139 ML/MIN/1.73 = 17870) eGFR NON- AMER. (test 120 ML/MIN/1.73 code = 53049) CALC BUN/CREAT (test code = 22 RATIO [...] (test code = 2219) 22 U/L LIPID [id number] 00:00:00 Test Item Value Reference Range Interpretation Comments CHOLESTEROL (test code = 2210) 243 MG/DL TRIGLYCERIDES (test code = 2232) 1140 MG/DL HDL CHOLESTEROL (test code = 31 MG/DL 2220) CALC LDL CHOL (test code = 2237) NOTE MG/DL RISK RATIO LDL/HDL (test code = (NOTE) RATIO 2238) LIPID [id number] 00:00:00 Test Item Value Reference Range Interpretation Comments CHOLESTEROL (test code = 2210) 243 MG/DL TRIGLYCERIDES (test code = 2232) 1140 MG/DL HDL CHOLESTEROL (test code = 31 MG/DL 2220) CALC LDL CHOL (test code = 2237) NOTE MG/DL RISK RATIO LDL/HDL (test code = (NOTE) RATIO 2238) CBC W/AUTO [id number] 00:00:00 Test Item Value Reference Range Interpretation [...] code = 1015) 229 K/UL CBC W/AUTO [id number] 00:00:00 Test Item Value Reference Range Interpretation [...] code = 1015) 229 K/UL CBC W/AUTO [id number] 00:00:00 Test Item Value Reference Range Interpretation [...] (test code = 1015) 229 K/UL HEMOGLOBIN [id number] 00:00:00 Test Item Value Reference Range Interpretation Comments HEMOGLOBIN A1c (test code = 47325) 7.7 % HEMOGLOBIN [id number] 00:00:00 Test Item Value Reference Range Interpretation Comments HEMOGLOBIN A1c (test code = 89883) 7.7 % HEMOGLOBIN [id number] 00:00:00 Test Item Value Reference Range Interpretation Comments HEMOGLOBIN A1c (test code = 22125) 7.7 % COMPREHENSIVE METABOLIC [id number] 00:00:00 Test Item Value Reference Range Interpretation Comments GLUCOSE (test code = 2217) 154 MG/DL BUN (test code = 2208) 12 MG/DL CREATININE (test code = 2214) 0.54 MG/DL eGFR AMER. (test code 139 ML/MIN/1.73 = 62085) eGFR NON- AMER. (test 120 ML/MIN/1.73 code = 63642) CALC BUN/CREAT (test code = 22 RATIO 2235) SODIUM (test code = 2231) 141 MEQ/L POTASSIUM (test code = 2228) 4.3 MEQ/L CHLORIDE (test code = 2215) 101 MEQ/L CARBON DIOXIDE (test code = 26 MEQ/L 220) CALCIUM (test code = 2209) 9.8 MG/DL [...] code = 2219) 22 U/L COMPREHENSIVE METABOLIC [id number] 00:00:00 Test Item Value Reference Range Interpretation Comments GLUCOSE (test code = 2217) 154 MG/DL BUN (test code = 2208) 12 MG/DL CREATININE (test code = 2214) 0.54 MG/DL eGFR AMER. (test code 139 ML/MIN/1.73 = 21264) eGFR NON- AMER. (test 120 ML/MIN/1.73 code = 83796) CALC BUN/CREAT (test code = 22 RATIO [...] (test code = 2219) 22 U/L LIPID [id number] 00:00:00 Test Item Value Reference Range Interpretation Comments CHOLESTEROL (test code = 2210) 243 MG/DL TRIGLYCERIDES (test code = 2232) 1140 MG/DL HDL CHOLESTEROL (test code = 31 MG/DL 2220) CALC LDL CHOL (test code = 2237) NOTE MG/DL RISK RATIO LDL/HDL (test code = (NOTE) RATIO 2238) COMPREHENSIVE METABOLIC [id number] 00:00:00 Test Item Value Reference Range Interpretation Comments GLUCOSE (test code = 2217) 154 MG/DL BUN (test code = 2208) 12 MG/DL CREATININE (test code = 2214) 0.54 MG/DL eGFR AMER. (test code 139 ML/MIN/1.73 = 52545) eGFR NON- AMER. (test 120 ML/MIN/1.73 code = 13329) CALC BUN/CREAT (test code = 22 RATIO [...] (test code = 2219) 22 U/L LIPID [id number] 00:00:00 Test Item Value Reference Range Interpretation Comments CHOLESTEROL (test code = 2210) 243 MG/DL TRIGLYCERIDES (test code = 2232) 1140 MG/DL HDL CHOLESTEROL (test code = 31 MG/DL 2220) CALC LDL CHOL (test code = 2237) NOTE MG/DL RISK RATIO LDL/HDL (test code = (NOTE) RATIO 2238) CBC W/AUTO [id number] 00:00:00 Test Item Value Reference Range Interpretation [...] code = 1015) 229 K/UL CBC W/AUTO [id number] 00:00:00 Test Item Value Reference Range Interpretation [...] code = 1015) 229 K/UL CBC W/AUTO [id number] 00:00:00 Test Item Value Reference Range Interpretation [...] (test code = 1015) 229 K/UL HEMOGLOBIN [id number] 00:00:00 Test Item Value Reference Range Interpretation Comments HEMOGLOBIN A1c (test code = 77675) 7.7 % HEMOGLOBIN [id number] 00:00:00 Test Item Value Reference Range Interpretation Comments HEMOGLOBIN A1c (test code = 29256) 7.7 % HEMOGLOBIN [id number] 00:00:00 Test Item Value Reference Range Interpretation Comments HEMOGLOBIN A1c (test code = 41196) 7.7 % LIPID [id number] 00:00:00 Test Item Value Reference Range Interpretation Comments CHOLESTEROL (test code = 2210) 243 MG/DL TRIGLYCERIDES (test code = 2232) 1140 MG/DL HDL CHOLESTEROL (test code = 31 MG/DL 2220) CALC LDL CHOL (test code = 2237) NOTE MG/DL RISK RATIO LDL/HDL (test code = (NOTE) RATIO 2238) CBC W/AUTO [id number] 00:00:00 Test Item Value Reference Range Interpretation [...] code = 1015) 229 K/UL CBC W/AUTO [id number] 00:00:00 Test Item Value Reference Range Interpretation [...] COUNT (test code = 1015) 229 K/UL COMPREHENSIVE METABOLIC [id number] 00:00:00 Test Item Value Reference Range Interpretation Comments GLUCOSE (test code = 2217) 154 MG/DL BUN (test code = 2208) 12 MG/DL CREATININE (test code = 2214) 0.54 MG/DL eGFR AMER. (test code 139 ML/MIN/1.73 = 70589) eGFR NON- AMER. (test 120 ML/MIN/1.73 code = 94934) CALC BUN/CREAT (test code = 22 RATIO [...] code = 2219) 22 U/L COMPREHENSIVE METABOLIC [id number] 00:00:00 Test Item Value Reference Range Interpretation Comments GLUCOSE (test code = 2217) 154 MG/DL BUN (test code = 2208) 12 MG/DL CREATININE (test code = 2214) 0.54 MG/DL eGFR AMER. (test code 139 ML/MIN/1.73 = 96015) eGFR NON- AMER. (test 120 ML/MIN/1.73 code = 97528) CALC BUN/CREAT (test code = 22 RATIO [...] RATIO 2233) BILIRUBIN, TOTAL (test code = 0.1 MG/DL 2206) ALKALINE PHOSPHATASE (test 42 U/L code = 2204) AST (test code = 2218) 17 U/L ALT (test code = 2219) 22 U/L HEMOGLOBIN [id number] 00:00:00 Test Item Value Reference Range Interpretation Comments HEMOGLOBIN A1c (test code = 15556) 7.7 % LIPID [id number] 00:00:00 Test Item Value Reference Range Interpretation Comments CHOLESTEROL (test code = 2210) 243 MG/DL TRIGLYCERIDES (test code = 2232) 1140 MG/DL HDL CHOLESTEROL (test code = 31 MG/DL 2220) CALC LDL CHOL (test code = 2237) NOTE MG/DL RISK RATIO LDL/HDL (test code = (NOTE) RATIO 2238) LIPID [id number] 00:00:00 Test Item Value Reference Range Interpretation Comments CHOLESTEROL (test code = 2210) 243 MG/DL TRIGLYCERIDES (test code = 2232) 1140 MG/DL HDL CHOLESTEROL (test code = 31 MG/DL 2220) CALC LDL CHOL (test code = 2237) NOTE MG/DL RISK RATIO LDL/HDL (test code = (NOTE) RATIO 2238) HEMOGLOBIN [id number] 00:00:00 Test Item Value Reference Range Interpretation Comments HEMOGLOBIN A1c (test code = 55350) 7.7 % CBC W/AUTO [id number] 00:00:00 Test Item Value Reference Range Interpretation [...] code = 1015) 229 K/UL CBC W/AUTO [id number] 00:00:00 Test Item Value Reference Range Interpretation [...] code = 1015) 229 K/UL CBC W/AUTO [id number] 00:00:00 Test Item Value Reference Range Interpretation [...] (test code = 1015) 229 K/UL HEMOGLOBIN [id number] 00:00:00 Test Item Value Reference Range Interpretation Comments HEMOGLOBIN A1c (test code = 27426) 7.7 % HEMOGLOBIN [id number] 00:00:00 Test Item Value Reference Range Interpretation Comments HEMOGLOBIN A1c (test code = 90698) 7.7 % HEMOGLOBIN [id number] 00:00:00 Test Item Value Reference Range Interpretation Comments HEMOGLOBIN A1c (test code = 85976) 7.7 % COMPREHENSIVE METABOLIC [id number] 00:00:00 Test Item Value Reference Range Interpretation Comments GLUCOSE (test code = 2217) 154 MG/DL BUN (test code = 2208) 12 MG/DL CREATININE (test code = 2214) 0.54 MG/DL eGFR AMER. (test code 139 ML/MIN/1.73 = 25464) eGFR NON- AMER. (test 120 ML/MIN/1.73 code = 06285) CALC BUN/CREAT (test code = 22 RATIO [...] code = 2219) 22 U/L COMPREHENSIVE METABOLIC [id number] 00:00:00 Test Item Value Reference Range Interpretation Comments GLUCOSE (test code = 2217) 154 MG/DL BUN (test code = 2208) 12 MG/DL CREATININE (test code = 2214) 0.54 MG/DL eGFR AMER. (test code 139 ML/MIN/1.73 = 95302) eGFR NON- AMER. (test 120 ML/MIN/1.73 code = 59624) CALC BUN/CREAT (test code = 22 RATIO 2235) SODIUM (test code = 2231) 141 MEQ/L POTASSIUM (test code = 2228) 4.3 MEQ/L CHLORIDE (test code = 2215) 101 MEQ/L CARBON DIOXIDE (test code = 26 MEQ/L 2205) CALCIUM (test code = 2209) 9.8 MG/DL PROTEIN, TOTAL (test code = 7.6 G/DL 2228) ALBUMIN (test code = 220) 4.7 G/DL CALC GLOBULIN (test code = 2.9 G/DL 2239) CALC A/G RATIO (test code = 1.6 RATIO 4) BILIRUBIN, TOTAL (test code = 0.1 MG/DL 2206) ALKALINE PHOSPHATASE (test 42 U/L code = 2204) AST (test code = 2218) 17 U/L ALT (test code = 2219) 22 U/L LIPID [id number] 00:00:00 Test Item Value Reference Range Interpretation Comments CHOLESTEROL (test code = 2210) 243 MG/DL TRIGLYCERIDES (test code = 2232) 1140 MG/DL HDL CHOLESTEROL (test code = 31 MG/DL 2220) CALC LDL CHOL (test code = 2237) NOTE MG/DL RISK RATIO LDL/HDL (test code = (NOTE) RATIO 2238) LIPID [id number] 00:00:00 Test Item Value Reference Range Interpretation Comments CHOLESTEROL (test code = 2210) 243 MG/DL TRIGLYCERIDES (test code = 2232) 1140 MG/DL HDL CHOLESTEROL (test code = 31 MG/DL 2220) CALC LDL CHOL (test code = 2237) NOTE MG/DL RISK RATIO LDL/HDL (test code = (NOTE) RATIO 2238) CBC W/AUTO [id number] 00:00:00 Test Item Value Reference Range Interpretation [...] code = 1015) 229 K/UL CBC W/AUTO [id number] 00:00:00 Test Item Value Reference Range Interpretation [...] code = 1015) 229 K/UL CBC W/AUTO [id number] 00:00:00 Test Item Value Reference Range Interpretation [...] (test code = 1015) 229 K/UL HEMOGLOBIN [id number] 00:00:00 Test Item Value Reference Range Interpretation Comments HEMOGLOBIN A1c (test code = 91260) 7.7 % HEMOGLOBIN [id number] 00:00:00 Test Item Value Reference Range Interpretation Comments HEMOGLOBIN A1c (test code = 55291) 7.7 % HEMOGLOBIN [id number] 00:00:00 Test Item Value Reference Range Interpretation Comments HEMOGLOBIN A1c (test code = 98254) 7.7 % COMPREHENSIVE METABOLIC [id number] 00:00:00 Test Item Value Reference Range Interpretation Comments GLUCOSE (test code = 2217) 154 MG/DL BUN (test code = 2208) 12 MG/DL CREATININE (test code = 2214) 0.54 MG/DL eGFR AMER. (test code 139 ML/MIN/1.73 = 05419) eGFR NON- AMER. (test 120 ML/MIN/1.73 code = 50552) CALC BUN/CREAT (test code = 22 RATIO [...] code = 2219) 22 U/L COMPREHENSIVE METABOLIC [id number] 00:00:00 Test Item Value Reference Range Interpretation Comments GLUCOSE (test code = 2217) 154 MG/DL BUN (test code = 2208) 12 MG/DL CREATININE (test code = 2214) 0.54 MG/DL eGFR AMER. (test code 139 ML/MIN/1.73 = 62817) eGFR NON- AMER. (test 120 ML/MIN/1.73 code = 11594) CALC BUN/CREAT (test code = 22 RATIO [...] A/G RATIO (test code = 1.6 RATIO 223) BILIRUBIN, TOTAL (test code = 0.1 MG/DL 2206) ALKALINE PHOSPHATASE (test 42 U/L code = 2204) AST (test code = 2218) 17 U/L ALT (test code = 2219) 22 U/L LIPID [id number] 00:00:00 Test Item Value Reference Range Interpretation Comments CHOLESTEROL (test code = 2210) 243 MG/DL TRIGLYCERIDES (test code = 2232) 1140 MG/DL HDL CHOLESTEROL (test code = 31 MG/DL 2220) CALC LDL CHOL (test code = 2237) NOTE MG/DL RISK RATIO LDL/HDL (test code = (NOTE) RATIO 2238) LIPID [id number] 00:00:00 Test Item Value Reference Range Interpretation Comments CHOLESTEROL (test code = 2210) 243 MG/DL TRIGLYCERIDES (test code = 2232) 1140 MG/DL HDL CHOLESTEROL (test code = 31 MG/DL 2220) CALC LDL CHOL (test code = 2237) NOTE MG/DL RISK RATIO LDL/HDL (test code = (NOTE) RATIO 2238) CBC W/AUTO [id number] 00:00:00 Test Item Value Reference Range Interpretation [...] code = 1015) 229 K/UL CBC W/AUTO [id number] 00:00:00 Test Item Value Reference Range Interpretation [...] code = 1015) 229 K/UL CBC W/AUTO [id number] 00:00:00 Test Item Value Reference Range Interpretation [...] (test code = 1015) 229 K/UL HEMOGLOBIN [id number] 00:00:00 Test Item Value Reference Range Interpretation Comments HEMOGLOBIN A1c (test code = 65877) 7.7 % HEMOGLOBIN [id number] 00:00:00 Test Item Value Reference Range Interpretation Comments HEMOGLOBIN A1c (test code = 23284) 7.7 % HEMOGLOBIN [id number] 00:00:00 Test Item Value Reference Range Interpretation Comments HEMOGLOBIN A1c (test code = 63160) 7.7 % [id number] 00:00:00 Test Item Value Reference Range Interpretation Comments MAGNESIUM (test code = 2226) 1.4 MG/DL [id number] 00:00:00 Test Item Value Reference Range Interpretation Comments MAGNESIUM (test code = 2226) 1.4 MG/DL [id number] 00:00:00 Test Item Value Reference Range Interpretation Comments MAGNESIUM (test code = 2226) 1.4 MG/DL COMPREHENSIVE METABOLIC [id number] 00:00:00 Test Item Value Reference Range Interpretation Comments GLUCOSE (test code = 2217) 234 MG/DL BUN (test code = 2208) 17 MG/DL CREATININE (test code = 2214) 0.54 MG/DL eGFR AMER. (test code 139 ML/MIN/1.73 = 16374) eGFR NON- AMER. (test 120 ML/MIN/1.73 code = 58004) CALC BUN/CREAT (test code = 31 RATIO [...] code = 2219) 22 U/L COMPREHENSIVE METABOLIC [id number] 00:00:00 Test Item Value Reference Range Interpretation Comments GLUCOSE (test code = 2217) 234 MG/DL BUN (test code = 2208) 17 MG/DL CREATININE (test code = 2214) 0.54 MG/DL eGFR AMER. (test code 139 ML/MIN/1.73 = 04390) eGFR NON- AMER. (test 120 ML/MIN/1.73 code = 44946) CALC BUN/CREAT (test code = 31 RATIO [...] (test code = 2219) 22 U/L HEMOGLOBIN [id number] 00:00:00 Test Item Value Reference Range Interpretation Comments HEMOGLOBIN A1c (test code = 33403) 7.7 % HEMOGLOBIN [id number] 00:00:00 Test Item Value Reference Range Interpretation Comments HEMOGLOBIN A1c (test code = 96834) 7.7 % HEMOGLOBIN [id number] 00:00:00 Test Item Value Reference Range Interpretation Comments HEMOGLOBIN A1c (test code = 56130) 7.7 % CBC W/AUTO [id number] 00:00:00 Test Item Value Reference Range Interpretation [...] code = 1015) 224 K/UL CBC W/AUTO [id number] 00:00:00 Test Item Value Reference Range Interpretation [...] code = 1015) 224 K/UL CBC W/AUTO [id number] 00:00:00 Test Item Value Reference Range Interpretation [...] TSH (test code = 2821) <0.10 UIU/ML [id number] 00:00:00 Test Item Value Reference Range Interpretation Comments MAGNESIUM (test code = 2226) 1.4 MG/DL [id number] 00:00:00 Test Item Value Reference Range Interpretation Comments MAGNESIUM (test code = 2226) 1.4 MG/DL [id number] 00:00:00 Test Item Value Reference Range Interpretation Comments MAGNESIUM (test code = 2226) 1.4 MG/DL COMPREHENSIVE METABOLIC [id number] 00:00:00 Test Item Value Reference Range Interpretation Comments GLUCOSE (test code = 2217) 234 MG/DL BUN (test code = 2208) 17 MG/DL CREATININE (test code = 2214) 0.54 MG/DL eGFR AMER. (test code 139 ML/MIN/1.73 = 11755) eGFR NON- AMER. (test 120 ML/MIN/1.73 code = 85810) CALC BUN/CREAT (test code = 31 RATIO [...] code = 2219) 22 U/L COMPREHENSIVE METABOLIC [id number] 00:00:00 Test Item Value Reference Range Interpretation Comments GLUCOSE (test code = 2217) 234 MG/DL BUN (test code = 2208) 17 MG/DL CREATININE (test code = 2214) 0.54 MG/DL eGFR AMER. (test code 139 ML/MIN/1.73 = 01270) eGFR NON- AMER. (test 120 ML/MIN/1.73 code = 99663) CALC BUN/CREAT (test code = 31 RATIO [...] (test code = 2219) 22 U/L HEMOGLOBIN [id number] 00:00:00 Test Item Value Reference Range Interpretation Comments HEMOGLOBIN A1c (test code = 67495) 7.7 % HEMOGLOBIN [id number] 00:00:00 Test Item Value Reference Range Interpretation Comments HEMOGLOBIN A1c (test code = 27327) 7.7 % HEMOGLOBIN [id number] 00:00:00 Test Item Value Reference Range Interpretation Comments HEMOGLOBIN A1c (test code = 97302) 7.7 % CBC W/AUTO [id number] 00:00:00 Test Item Value Reference Range Interpretation [...] code = 1015) 224 K/UL CBC W/AUTO [id number] 00:00:00 Test Item Value Reference Range Interpretation [...] code = 1015) 224 K/UL CBC W/AUTO [id number] 00:00:00 Test Item Value Reference Range Interpretation [...] TSH (test code = 2821) <0.10 UIU/ML [id number] 00:00:00 Test Item Value Reference Range Interpretation Comments MAGNESIUM (test code = 2226) 1.4 MG/DL [id number] 00:00:00 Test Item Value Reference Range Interpretation Comments MAGNESIUM (test code = 2226) 1.4 MG/DL [id number] 00:00:00 Test Item Value Reference Range Interpretation Comments MAGNESIUM (test code = 2226) 1.4 MG/DL COMPREHENSIVE METABOLIC [id number] 00:00:00 Test Item Value Reference Range Interpretation Comments GLUCOSE (test code = 2217) 234 MG/DL BUN (test code = 2208) 17 MG/DL CREATININE (test code = 2214) 0.54 MG/DL eGFR AMER. (test code 139 ML/MIN/1.73 = 33974) eGFR NON- AMER. (test 120 ML/MIN/1.73 code = 84199) CALC BUN/CREAT (test code = 31 RATIO 2235) SODIUM (test code = 2231) 136 MEQ/L POTASSIUM (test code = 2228) 4.7 MEQ/L CHLORIDE (test code = 2215) 95 MEQ/L CARBON DIOXIDE (test code = 21 MEQ/L 220) CALCIUM (test code = 2209) 10.0 MG/DL PROTEIN, TOTAL (test code = 7.5 G/DL 2229) ALBUMIN (test code = 2201) 4.3 G/DL CALC GLOBULIN (test code = 3.2 G/DL 2240) CALC A/G RATIO (test code = 1.3 RATIO 2234) BILIRUBIN, TOTAL (test code = 0.2 MG/DL 2207) ALKALINE PHOSPHATASE (test 53 U/L code = 2204) AST (test code = 2218) 16 U/L ALT (test code = 2219) 22 U/L COMPREHENSIVE METABOLIC [id number] 00:00:00 Test Item Value Reference Range Interpretation Comments GLUCOSE (test code = 2217) 234 MG/DL BUN (test code = 2208) 17 MG/DL CREATININE (test code = 2214) 0.54 MG/DL eGFR AMER. (test code 139 ML/MIN/1.73 = 94854) eGFR NON- AMER. (test 120 ML/MIN/1.73 code = 62004) CALC BUN/CREAT (test code = 31 RATIO 2235) SODIUM (test code = 2231) 136 MEQ/L POTASSIUM (test code = 2228) 4.7 MEQ/L CHLORIDE (test code = 2215) 95 MEQ/L CARBON DIOXIDE (test code = 21 MEQ/L 2206) CALCIUM (test code = 2209) 10.0 MG/DL PROTEIN, TOTAL (test code = 7.5 G/DL 2229) ALBUMIN (test code = 2201) 4.3 G/DL CALC GLOBULIN (test code = 3.2 G/DL 2240) CALC A/G RATIO (test code = 1.3 RATIO 2234) BILIRUBIN, TOTAL (test code = 0.2 MG/DL 2207) ALKALINE PHOSPHATASE (test 53 U/L code = 2204) AST (test code = 2218) 16 U/L ALT (test code = 2219) 22 U/L HEMOGLOBIN [id number] 00:00:00 Test Item Value Reference Range Interpretation Comments HEMOGLOBIN A1c (test code = 40683) 7.7 % HEMOGLOBIN [id number] 00:00:00 Test Item Value Reference Range Interpretation Comments HEMOGLOBIN A1c (test code = 93204) 7.7 % HEMOGLOBIN [id number] 00:00:00 Test Item Value Reference Range Interpretation Comments HEMOGLOBIN A1c (test code = 37287) 7.7 % CBC W/AUTO [id number] 00:00:00 Test Item Value Reference Range Interpretation [...] code = 1015) 224 K/UL CBC W/AUTO [id number] 00:00:00 Test Item Value Reference Range Interpretation [...] code = 1015) 224 K/UL CBC W/AUTO [id number] 00:00:00 Test Item Value Reference Range Interpretation [...] TSH (test code = 2821) <0.10 UIU/ML [id number] 00:00:00 Test Item Value Reference Range Interpretation Comments MAGNESIUM (test code = 2226) 1.4 MG/DL [id number] 00:00:00 Test Item Value Reference Range Interpretation Comments MAGNESIUM (test code = 2226) 1.4 MG/DL [id number] 00:00:00 Test Item Value Reference Range Interpretation Comments MAGNESIUM (test code = 2226) 1.4 MG/DL COMPREHENSIVE METABOLIC [id number] 00:00:00 Test Item Value Reference Range Interpretation Comments GLUCOSE (test code = 2217) 234 MG/DL BUN (test code = 2208) 17 MG/DL CREATININE (test code = 2214) 0.54 MG/DL eGFR AMER. (test code 139 ML/MIN/1.73 = 88127) eGFR NON- AMER. (test 120 ML/MIN/1.73 code = 98461) CALC BUN/CREAT (test code = 31 RATIO [...] ALKALINE PHOSPHATASE (test 53 U/L code = 220) AST (test code = 2218) 16 U/L ALT (test code = 2219) 22 U/L COMPREHENSIVE METABOLIC [id number] 00:00:00 Test Item Value Reference Range Interpretation Comments GLUCOSE (test code = 221) 234 MG/DL BUN (test code = 8) 17 MG/DL CREATININE (test code = 2214) 0.54 MG/DL eGFR AMER. (test code 139 ML/MIN/1.73 = 16530) eGFR NON- AMER. (test 120 ML/MIN/1.73 code = 98115) CALC BUN/CREAT (test code = 31 RATIO [...] (test code = 2219) 22 U/L HEMOGLOBIN [id number] 00:00:00 Test Item Value Reference Range Interpretation Comments HEMOGLOBIN A1c (test code = 52532) 7.7 % HEMOGLOBIN [id number] 00:00:00 Test Item Value Reference Range Interpretation Comments HEMOGLOBIN A1c (test code = 01210) 7.7 % HEMOGLOBIN [id number] 00:00:00 Test Item Value Reference Range Interpretation Comments HEMOGLOBIN A1c (test code = 81922) 7.7 % CBC W/AUTO [id number] 00:00:00 Test Item Value Reference Range Interpretation [...] code = 1015) 224 K/UL CBC W/AUTO [id number] 00:00:00 Test Item Value Reference Range Interpretation [...] code = 1015) 224 K/UL CBC W/AUTO [id number] 00:00:00 Test Item Value Reference Range Interpretation [...] TSH (test code = 2821) <0.10 UIU/ML [id number] 00:00:00 Test Item Value Reference Range Interpretation Comments MAGNESIUM (test code = 2226) 1.4 MG/DL [id number] 00:00:00 Test Item Value Reference Range Interpretation Comments MAGNESIUM (test code = 2226) 1.4 MG/DL [id number] 00:00:00 Test Item Value Reference Range Interpretation Comments MAGNESIUM (test code = 2226) 1.4 MG/DL COMPREHENSIVE METABOLIC [id number] 00:00:00 Test Item Value Reference Range Interpretation Comments GLUCOSE (test code = 2217) 234 MG/DL BUN (test code = 2208) 17 MG/DL CREATININE (test code = 2214) 0.54 MG/DL eGFR AMER. (test code 139 ML/MIN/1.73 = 02401) eGFR NON- AMER. (test 120 ML/MIN/1.73 code = 41701) CALC BUN/CREAT (test code = 31 RATIO [...] code = 2219) 22 U/L COMPREHENSIVE METABOLIC [id number] 00:00:00 Test Item Value Reference Range Interpretation Comments GLUCOSE (test code = 2217) 234 MG/DL BUN (test code = 2208) 17 MG/DL CREATININE (test code = 2214) 0.54 MG/DL eGFR AMER. (test code 139 ML/MIN/1.73 = 21939) eGFR NON- AMER. (test 120 ML/MIN/1.73 code = 07457) CALC BUN/CREAT (test code = 31 RATIO [...] (test code = 2219) 22 U/L HEMOGLOBIN [id number] 00:00:00 Test Item Value Reference Range Interpretation Comments HEMOGLOBIN A1c (test code = 17329) 7.7 % HEMOGLOBIN [id number] 00:00:00 Test Item Value Reference Range Interpretation Comments HEMOGLOBIN A1c (test code = 27313) 7.7 % HEMOGLOBIN [id number] 00:00:00 Test Item Value Reference Range Interpretation Comments HEMOGLOBIN A1c (test code = 89917) 7.7 % CBC W/AUTO [id number] 00:00:00 Test Item Value Reference Range Interpretation [...] code = 1015) 224 K/UL CBC W/AUTO [id number] 00:00:00 Test Item Value Reference Range Interpretation [...] code = 1015) 224 K/UL CBC W/AUTO [id number] 00:00:00 Test Item Value Reference Range Interpretation [...] TSH (test code = 2821) <0.10 UIU/ML [id number] 00:00:00 Test Item Value Reference Range Interpretation Comments MAGNESIUM (test code = 2226) 1.4 MG/DL [id number] 00:00:00 Test Item Value Reference Range Interpretation Comments MAGNESIUM (test code = 2226) 1.4 MG/DL [id number] 00:00:00 Test Item Value Reference Range Interpretation Comments MAGNESIUM (test code = 2226) 1.4 MG/DL COMPREHENSIVE METABOLIC [id number] 00:00:00 Test Item Value Reference Range Interpretation Comments GLUCOSE (test code = 2217) 234 MG/DL BUN (test code = 2208) 17 MG/DL CREATININE (test code = 2214) 0.54 MG/DL eGFR AMER. (test code 139 ML/MIN/1.73 = 43807) eGFR NON- AMER. (test 120 ML/MIN/1.73 code = 07756) CALC BUN/CREAT (test code = 31 RATIO 2235) SODIUM (test code = 2231) 136 MEQ/L POTASSIUM (test code = 2228) 4.7 MEQ/L CHLORIDE (test code = 2215) 95 MEQ/L CARBON DIOXIDE (test code = 21 MEQ/L 220) CALCIUM (test code = 2209) 10.0 MG/DL PROTEIN, TOTAL (test code = 7.5 G/DL 222) ALBUMIN (test code = 2201) 4.3 G/DL CALC GLOBULIN (test code = 3.2 G/DL 2240) CALC A/G RATIO (test code = 1.3 RATIO 2234) BILIRUBIN, TOTAL (test code = 0.2 MG/DL 2206) ALKALINE PHOSPHATASE (test 53 U/L code = 2204) AST (test code = 2218) 16 U/L ALT (test code = 2219) 22 U/L COMPREHENSIVE METABOLIC [id number] 00:00:00 Test Item Value Reference Range Interpretation Comments GLUCOSE (test code = 2217) 234 MG/DL BUN (test code = 2208) 17 MG/DL CREATININE (test code = 2214) 0.54 MG/DL eGFR AMER. (test code 139 ML/MIN/1.73 = 83678) eGFR NON- AMER. (test 120 ML/MIN/1.73 code = 14914) CALC BUN/CREAT (test code = 31 RATIO [...] CALC GLOBULIN (test code = 3.2 G/DL 0) CALC A/G RATIO (test code = 1.3 RATIO 4) BILIRUBIN, TOTAL (test code = 0.2 MG/DL 2206) ALKALINE PHOSPHATASE (test 53 U/L code = 2204) AST (test code = 2218) 16 U/L ALT (test code = 2219) 22 U/L HEMOGLOBIN [id number] 00:00:00 Test Item Value Reference Range Interpretation Comments HEMOGLOBIN A1c (test code = 59386) 7.7 % HEMOGLOBIN [id number] 00:00:00 Test Item Value Reference Range Interpretation Comments HEMOGLOBIN A1c (test code = 56585) 7.7 % HEMOGLOBIN [id number] 00:00:00 Test Item Value Reference Range Interpretation Comments HEMOGLOBIN A1c (test code = 23985) 7.7 % CBC W/AUTO [id number] 00:00:00 Test Item Value Reference Range Interpretation [...] code = 1015) 224 K/UL CBC W/AUTO [id number] 00:00:00 Test Item Value Reference Range Interpretation [...] code = 1015) 224 K/UL CBC W/AUTO [id number] 00:00:00 Test Item Value Reference Range Interpretation [...] TSH (test code = 2821) <0.10 UIU/ML [id number] 00:00:00 Test Item Value Reference Range Interpretation Comments MAGNESIUM (test code = 2226) 1.4 MG/DL [id number] 00:00:00 Test Item Value Reference Range Interpretation Comments MAGNESIUM (test code = 2226) 1.4 MG/DL [id number] 00:00:00 Test Item Value Reference Range Interpretation Comments MAGNESIUM (test code = 2226) 1.4 MG/DL [id number] 00:00:00 Test Item Value Reference Range Interpretation Comments MAGNESIUM (test code = 2226) 1.4 MG/DL COMPREHENSIVE METABOLIC [id number] 00:00:00 Test Item Value Reference Range Interpretation Comments GLUCOSE (test code = 2217) 234 MG/DL BUN (test code = 2208) 17 MG/DL CREATININE (test code = 2214) 0.54 MG/DL eGFR AMER. (test code 139 ML/MIN/1.73 = 81062) eGFR NON- AMER. (test 120 ML/MIN/1.73 code = 09395) CALC BUN/CREAT (test code = 31 RATIO 2234) SODIUM (test code = 2231) 136 MEQ/L POTASSIUM (test code = 2228) 4.7 MEQ/L CHLORIDE (test code = 2215) 95 MEQ/L CARBON DIOXIDE (test code = 21 MEQ/L 2205) CALCIUM (test code = 2209) 10.0 MG/DL PROTEIN, TOTAL (test code = 7.5 G/DL 2228) ALBUMIN (test code = 2201) 4.3 G/DL CALC GLOBULIN (test code = 3.2 G/DL 0) CALC A/G RATIO (test code = 1.3 RATIO 2233) BILIRUBIN, TOTAL (test code = 0.2 MG/DL 2206) ALKALINE PHOSPHATASE (test 53 U/L code = 2204) AST (test code = 2218) 16 U/L ALT (test code = 2219) 22 U/L COMPREHENSIVE METABOLIC [id number] 00:00:00 Test Item Value Reference Range Interpretation Comments GLUCOSE (test code = 2217) 234 MG/DL BUN (test code = 2208) 17 MG/DL CREATININE (test code = 2214) 0.54 MG/DL eGFR AMER. (test code 139 ML/MIN/1.73 = 90610) eGFR NON- AMER. (test 120 ML/MIN/1.73 code = 61903) CALC BUN/CREAT (test code = 31 RATIO [...] ALKALINE PHOSPHATASE (test 53 U/L code = 220) AST (test code = 2218) 16 U/L ALT (test code = 2219) 22 U/L HEMOGLOBIN [id number] 00:00:00 Test Item Value Reference Range Interpretation Comments HEMOGLOBIN A1c (test code = 43778) 7.7 % HEMOGLOBIN [id number] 00:00:00 Test Item Value Reference Range Interpretation Comments HEMOGLOBIN A1c (test code = 55730) 7.7 % HEMOGLOBIN [id number] 00:00:00 Test Item Value Reference Range Interpretation Comments HEMOGLOBIN A1c (test code = 05366) 7.7 % [id number] 00:00:00 Test Item Value Reference Range Interpretation Comments MAGNESIUM (test code = 2226) 1.4 MG/DL CBC W/AUTO [id number] 00:00:00 Test Item Value Reference Range Interpretation [...] code = 1015) 224 K/UL CBC W/AUTO [id number] 00:00:00 Test Item Value Reference Range Interpretation [...] code = 1015) 224 K/UL CBC W/AUTO [id number] 00:00:00 Test Item Value Reference Range Interpretation [...] TSH (test code = 2821) <0.10 UIU/ML COMPREHENSIVE METABOLIC [id number] 00:00:00 Test Item Value Reference Range Interpretation Comments GLUCOSE (test code = 2217) 234 MG/DL BUN (test code = 2208) 17 MG/DL CREATININE (test code = 2214) 0.54 MG/DL eGFR AMER. (test code 139 ML/MIN/1.73 = 49585) eGFR NON- AMER. (test 120 ML/MIN/1.73 code = 78382) CALC BUN/CREAT (test code = 31 RATIO [...] (test code = 2219) 22 U/L HEMOGLOBIN [id number] 00:00:00 Test Item Value Reference Range Interpretation Comments HEMOGLOBIN A1c (test code = 84632) 7.7 % HEMOGLOBIN [id number] 00:00:00 Test Item Value Reference Range Interpretation Comments HEMOGLOBIN A1c (test code = 81888) 7.7 % [id number] 00:00:00 Test Item Value Reference Range Interpretation Comments MAGNESIUM (test code = 2226) 1.4 MG/DL [id number] 00:00:00 Test Item Value Reference Range Interpretation Comments MAGNESIUM (test code = 2226) 1.4 MG/DL [id number] 00:00:00 Test Item Value Reference Range Interpretation Comments MAGNESIUM (test code = 2226) 1.4 MG/DL CBC W/AUTO [id number] 00:00:00 Test Item Value Reference Range Interpretation [...] COUNT (test code = 1015) 224 K/UL COMPREHENSIVE METABOLIC [id number] 00:00:00 Test Item Value Reference Range Interpretation Comments GLUCOSE (test code = 2217) 234 MG/DL BUN (test code = 2208) 17 MG/DL CREATININE (test code = 2214) 0.54 MG/DL eGFR AMER. (test code 139 ML/MIN/1.73 = 43448) eGFR NON- AMER. (test 120 ML/MIN/1.73 code = 62673) CALC BUN/CREAT (test code = 31 RATIO [...] ALT (test code = 2219) 22 U/L CBC W/AUTO [id number] 00:00:00 Test Item Value Reference Range Interpretation [...] COUNT (test code = 1015) 224 K/UL COMPREHENSIVE METABOLIC [id number] 00:00:00 Test Item Value Reference Range Interpretation Comments GLUCOSE (test code = 2217) 234 MG/DL BUN (test code = 2208) 17 MG/DL CREATININE (test code = 2214) 0.54 MG/DL eGFR AMER. (test code 139 ML/MIN/1.73 = 34097) eGFR NON- AMER. (test 120 ML/MIN/1.73 code = 85616) CALC BUN/CREAT (test code = 31 RATIO [...] = 0.2 MG/DL 7) ALKALINE PHOSPHATASE (test 53 U/L code = 2204) AST (test code = 2218) 16 U/L ALT (test code = 2219) 22 U/L HEMOGLOBIN [id number] 00:00:00 Test Item Value Reference Range Interpretation Comments HEMOGLOBIN A1c (test code = 93250) 7.7 % HEMOGLOBIN [id number] 00:00:00 Test Item Value Reference Range Interpretation Comments HEMOGLOBIN A1c (test code = 14081) 7.7 % HEMOGLOBIN [id number] 00:00:00 Test Item Value Reference Range Interpretation Comments HEMOGLOBIN A1c (test code = 19907) 7.7 % THYROID II PROFILE (T3U, T4, T7, TSH)[id number] 00:00:00 Test Item Value Reference Range Interpretation Comments T3 UPTAKE (test code = 2817) 24.7 % T4 (THYROXINE) (test code = 3.7 UG/DL 281) CALCULATED T7 (FTI) (test code = 0.91 2820) TSH (test code = 2821) <0.10 UIU/ML CBC W/AUTO [id number] 00:00:00 Test Item Value Reference Range Interpretation [...] code = 1015) 224 K/UL CBC W/AUTO [id number] 00:00:00 Test Item Value Reference Range Interpretation [...] code = 1015) 224 K/UL CBC W/AUTO [id number] 00:00:00 Test Item Value Reference Range Interpretation [...] TSH (test code = 2821) <0.10 UIU/ML [id number] 00:00:00 Test Item Value Reference Range Interpretation Comments MAGNESIUM (test code = 2226) 1.4 MG/DL [id number] 00:00:00 Test Item Value Reference Range Interpretation Comments MAGNESIUM (test code = 2226) 1.4 MG/DL [id number] 00:00:00 Test Item Value Reference Range Interpretation Comments MAGNESIUM (test code = 2226) 1.4 MG/DL COMPREHENSIVE METABOLIC [id number] 00:00:00 Test Item Value Reference Range Interpretation Comments GLUCOSE (test code = 2217) 234 MG/DL BUN (test code = 2208) 17 MG/DL CREATININE (test code = 2214) 0.54 MG/DL eGFR AMER. (test code 139 ML/MIN/1.73 = 09464) eGFR NON- AMER. (test 120 ML/MIN/1.73 code = 76549) CALC BUN/CREAT (test code = 31 RATIO [...] code = 2219) 22 U/L COMPREHENSIVE METABOLIC [id number] 00:00:00 Test Item Value Reference Range Interpretation Comments GLUCOSE (test code = 2217) 234 MG/DL BUN (test code = 2208) 17 MG/DL CREATININE (test code = 2214) 0.54 MG/DL eGFR AMER. (test code 139 ML/MIN/1.73 = 82312) eGFR NON- AMER. (test 120 ML/MIN/1.73 code = 48358) CALC BUN/CREAT (test code = 31 RATIO 2234) SODIUM (test code = 2231) 136 MEQ/L [...] (test code = 2219) 22 U/L HEMOGLOBIN [id number] 00:00:00 Test Item Value Reference Range Interpretation Comments HEMOGLOBIN A1c (test code = 73906) 7.7 % HEMOGLOBIN [id number] 00:00:00 Test Item Value Reference Range Interpretation Comments HEMOGLOBIN A1c (test code = 76407) 7.7 % HEMOGLOBIN [id number] 00:00:00 Test Item Value Reference Range Interpretation Comments HEMOGLOBIN A1c (test code = 20930) 7.7 % CBC W/AUTO [id number] 00:00:00 Test Item Value Reference Range Interpretation [...] code = 1015) 224 K/UL CBC W/AUTO [id number] 00:00:00 Test Item Value Reference Range Interpretation [...] code = 1015) 224 K/UL CBC W/AUTO [id number] 00:00:00 Test Item Value Reference Range Interpretation [...] TSH (test code = 2821) <0.10 UIU/ML [id number] 00:00:00 Test Item Value Reference Range Interpretation Comments MAGNESIUM (test code = 2226) 1.4 MG/DL [id number] 00:00:00 Test Item Value Reference Range Interpretation Comments MAGNESIUM (test code = 2226) 1.4 MG/DL [id number] 00:00:00 Test Item Value Reference Range Interpretation Comments MAGNESIUM (test code = 2226) 1.4 MG/DL COMPREHENSIVE METABOLIC [id number] 00:00:00 Test Item Value Reference Range Interpretation Comments GLUCOSE (test code = 2217) 234 MG/DL BUN (test code = 2208) 17 MG/DL CREATININE (test code = 2214) 0.54 MG/DL eGFR AMER. (test code 139 ML/MIN/1.73 = 13329) eGFR NON- AMER. (test 120 ML/MIN/1.73 code = 19812) CALC BUN/CREAT (test code = 31 RATIO [...] code = 2219) 22 U/L COMPREHENSIVE METABOLIC [id number] 00:00:00 Test Item Value Reference Range Interpretation Comments GLUCOSE (test code = 2217) 234 MG/DL BUN (test code = 2208) 17 MG/DL CREATININE (test code = 2214) 0.54 MG/DL eGFR AMER. (test code 139 ML/MIN/1.73 = 73389) eGFR NON- AMER. (test 120 ML/MIN/1.73 code = 59483) CALC BUN/CREAT (test code = 31 RATIO [...] (test code = 2219) 22 U/L HEMOGLOBIN [id number] 00:00:00 Test Item Value Reference Range Interpretation Comments HEMOGLOBIN A1c (test code = 75790) 7.7 % HEMOGLOBIN [id number] 00:00:00 Test Item Value Reference Range Interpretation Comments HEMOGLOBIN A1c (test code = 21900) 7.7 % HEMOGLOBIN [id number] 00:00:00 Test Item Value Reference Range Interpretation Comments HEMOGLOBIN A1c (test code = 25783) 7.7 % CBC W/AUTO [id number] 00:00:00 Test Item Value Reference Range Interpretation [...] code = 1015) 224 K/UL CBC W/AUTO [id number] 00:00:00 Test Item Value Reference Range Interpretation [...] code = 1015) 224 K/UL CBC W/AUTO [id number] 00:00:00 Test Item Value Reference Range Interpretation [...] <0.10 UIU/ML MARKO (ANTI-NUCLEAR AB) WITH REFLEX [id number] 00:00:00 Test Item Value Reference Range Interpretation Comments ANTI-NUCLEAR ANTIBODIES (test code = NEGATIVE 3506) MARKO (ANTI-NUCLEAR AB) WITH REFLEX [id number] 00:00:00 Test Item Value Reference Range Interpretation Comments ANTI-NUCLEAR ANTIBODIES (test code = NEGATIVE 3506) DHEA [id number] 00:00:00 Test Item Value Reference Range Interpretation Comments DHEA SULFATE (test code = 4225) 77 UG/DL DHEA [id number] 00:00:00 Test Item Value Reference Range Interpretation Comments DHEA SULFATE (test code = 4225) 77 UG/DL MARKO (ANTI-NUCLEAR AB) WITH REFLEX [id number] 00:00:00 Test Item Value Reference Range Interpretation Comments ANTI-NUCLEAR ANTIBODIES (test code = NEGATIVE 3506) MARKO (ANTI-NUCLEAR AB) WITH REFLEX [id number] 00:00:00 Test Item Value Reference Range Interpretation Comments ANTI-NUCLEAR ANTIBODIES (test code = NEGATIVE 3506) DHEA [id number] 00:00:00 Test Item Value Reference Range Interpretation Comments DHEA SULFATE (test code = 4225) 77 UG/DL DHEA [id number] 00:00:00 Test Item Value Reference Range Interpretation Comments DHEA SULFATE (test code = 4225) 77 UG/DL MARKO (ANTI-NUCLEAR AB) WITH REFLEX [id number] 00:00:00 Test Item Value Reference Range Interpretation Comments ANTI-NUCLEAR ANTIBODIES (test code = NEGATIVE 3506) MARKO (ANTI-NUCLEAR AB) WITH REFLEX [id number] 00:00:00 Test Item Value Reference Range Interpretation Comments ANTI-NUCLEAR ANTIBODIES (test code = NEGATIVE 3506) DHEA [id number] 00:00:00 Test Item Value Reference Range Interpretation Comments DHEA SULFATE (test code = 4225) 77 UG/DL DHEA [id number] 00:00:00 Test Item Value Reference Range Interpretation Comments DHEA SULFATE (test code = 4225) 77 UG/DL MARKO (ANTI-NUCLEAR AB) WITH REFLEX [id number] 00:00:00 Test Item Value Reference Range Interpretation Comments ANTI-NUCLEAR ANTIBODIES (test code = NEGATIVE 3506) MARKO (ANTI-NUCLEAR AB) WITH REFLEX [id number] 00:00:00 Test Item Value Reference Range Interpretation Comments ANTI-NUCLEAR ANTIBODIES (test code = NEGATIVE 3506) DHEA [id number] 00:00:00 Test Item Value Reference Range Interpretation Comments DHEA SULFATE (test code = 4225) 77 UG/DL DHEA [id number] 00:00:00 Test Item Value Reference Range Interpretation Comments DHEA SULFATE (test code = 4225) 77 UG/DL MARKO (ANTI-NUCLEAR AB) WITH REFLEX [id number] 00:00:00 Test Item Value Reference Range Interpretation Comments ANTI-NUCLEAR ANTIBODIES (test code = NEGATIVE 3506) MARKO (ANTI-NUCLEAR AB) WITH REFLEX [id number] 00:00:00 Test Item Value Reference Range Interpretation Comments ANTI-NUCLEAR ANTIBODIES (test code = NEGATIVE 3506) DHEA [id number] 00:00:00 Test Item Value Reference Range Interpretation Comments DHEA SULFATE (test code = 4225) 77 UG/DL DHEA [id number] 00:00:00 Test Item Value Reference Range Interpretation Comments DHEA SULFATE (test code = 4225) 77 UG/DL MARKO (ANTI-NUCLEAR AB) WITH REFLEX [id number] 00:00:00 Test Item Value Reference Range Interpretation Comments ANTI-NUCLEAR ANTIBODIES (test code = NEGATIVE 3506) MARKO (ANTI-NUCLEAR AB) WITH REFLEX [id number] 00:00:00 Test Item Value Reference Range Interpretation Comments ANTI-NUCLEAR ANTIBODIES (test code = NEGATIVE 3506) DHEA [id number] 00:00:00 Test Item Value Reference Range Interpretation Comments DHEA SULFATE (test code = 4225) 77 UG/DL DHEA [id number] 00:00:00 Test Item Value Reference Range Interpretation Comments DHEA SULFATE (test code = 4225) 77 UG/DL MARKO (ANTI-NUCLEAR AB) WITH REFLEX [id number] 00:00:00 Test Item Value Reference Range Interpretation Comments ANTI-NUCLEAR ANTIBODIES (test code = NEGATIVE 3506) MARKO (ANTI-NUCLEAR AB) WITH REFLEX [id number] 00:00:00 Test Item Value Reference Range Interpretation Comments ANTI-NUCLEAR ANTIBODIES (test code = NEGATIVE 3506) DHEA [id number] 00:00:00 Test Item Value Reference Range Interpretation Comments DHEA SULFATE (test code = 4225) 77 UG/DL DHEA [id number] 00:00:00 Test Item Value Reference Range Interpretation Comments DHEA SULFATE (test code = 4225) 77 UG/DL MARKO (ANTI-NUCLEAR AB) WITH REFLEX [id number] 00:00:00 Test Item Value Reference Range Interpretation Comments ANTI-NUCLEAR ANTIBODIES (test code = NEGATIVE 3506) MARKO (ANTI-NUCLEAR AB) WITH REFLEX [id number] 00:00:00 Test Item Value Reference Range Interpretation Comments ANTI-NUCLEAR ANTIBODIES (test code = NEGATIVE 3506) MARKO (ANTI-NUCLEAR AB) WITH REFLEX [id number] 00:00:00 Test Item Value Reference Range Interpretation Comments ANTI-NUCLEAR ANTIBODIES (test code = NEGATIVE 3506) DHEA [id number] 00:00:00 Test Item Value Reference Range Interpretation Comments DHEA SULFATE (test code = 4225) 77 UG/DL DHEA [id number] 00:00:00 Test Item Value Reference Range Interpretation Comments DHEA SULFATE (test code = 4225) 77 UG/DL DHEA [id number] 00:00:00 Test Item Value Reference Range Interpretation Comments DHEA SULFATE (test code = 4225) 77 UG/DL MARKO (ANTI-NUCLEAR AB) WITH REFLEX [id number] 00:00:00 Test Item Value Reference Range Interpretation Comments ANTI-NUCLEAR ANTIBODIES (test code = NEGATIVE 3506) MARKO (ANTI-NUCLEAR AB) WITH REFLEX [id number] 00:00:00 Test Item Value Reference Range Interpretation Comments ANTI-NUCLEAR ANTIBODIES (test code = NEGATIVE 3506) DHEA [id number] 00:00:00 Test Item Value Reference Range Interpretation Comments DHEA SULFATE (test code = 4225) 77 UG/DL DHEA [id number] 00:00:00 Test Item Value Reference Range Interpretation Comments DHEA SULFATE (test code = 4225) 77 UG/DL MARKO (ANTI-NUCLEAR AB) WITH REFLEX [id number] 00:00:00 Test Item Value Reference Range Interpretation Comments ANTI-NUCLEAR ANTIBODIES (test code = NEGATIVE 3506) MARKO (ANTI-NUCLEAR AB) WITH REFLEX [id number] 00:00:00 Test Item Value Reference Range Interpretation Comments ANTI-NUCLEAR ANTIBODIES (test code = NEGATIVE 3506) DHEA [id number] 00:00:00 Test Item Value Reference Range Interpretation Comments DHEA SULFATE (test code = 4225) 77 UG/DL DHEA [id number] 00:00:00 Test Item Value Reference Range Interpretation Comments DHEA SULFATE (test code = 4225) 77 UG/DL VITAMIN D,1,94-[id number] 00:00:00 Test Item Value Reference Range Interpretation Comments VITAMIN D,1,25-DIHYDROXY (test 11.3 PG/ML code = 4960) VITAMIN D,1,27-[id number] 00:00:00 Test Item Value Reference Range Interpretation Comments VITAMIN D,1,25-DIHYDROXY (test 11.3 PG/ML code = 4960) VITAMIN B 12 AND FOLIC [id number] 00:00:00 Test Item Value Reference Range Interpretation Comments VITAMIN B-12 (test code = 2840) 925 PG/ML FOLIC ACID (test code = 2695) >24.0 NG/ML VITAMIN B 12 AND FOLIC [id number] 00:00:00 Test Item Value Reference Range Interpretation Comments VITAMIN B-12 (test code = 2840) 925 PG/ML FOLIC ACID (test code = 2695) >24.0 NG/ML THYROID II PROFILE (T3U, T4, T7, TSH)2016-03-22 00:00:00 Test Item Value Reference Range Interpretation Comments T3 UPTAKE (test code = 2817) 31.0 % T4 (THYROXINE) (test code = 2819) 7.4 UG/DL CALCULATED T7 (FTI) (test code = 2.29 6350) TSH (test code = 2821) 0.4 UIU/ML THYROID II PROFILE (T3U, T4, T7, TSH)2016-03-22 00:00:00 Test Item Value Reference Range Interpretation Comments T3 UPTAKE (test code = 2817) 31.0 % T4 (THYROXINE) (test code = 2819) 7.4 UG/DL CALCULATED T7 (FTI) (test code = 2.29 2820) TSH (test code = 2821) 0.4 UIU/ML LIPID [id number] 00:00:00 Test Item Value Reference Range Interpretation Comments CHOLESTEROL (test code = 2210) 172 MG/DL TRIGLYCERIDES (test code = 2232) 136 MG/DL HDL CHOLESTEROL (test code = 2220) 44 MG/DL CALC LDL CHOL (test code = 2237) 101 MG/DL RISK RATIO LDL/HDL (test code = 2.29 RATIO 2238) LIPID [id number] 00:00:00 Test Item Value Reference Range Interpretation Comments CHOLESTEROL (test code = 2210) 172 MG/DL TRIGLYCERIDES (test code = 2232) 136 MG/DL HDL CHOLESTEROL (test code = 2220) 44 MG/DL CALC LDL CHOL (test code = 2237) 101 MG/DL RISK RATIO LDL/HDL (test code = 2.29 RATIO 2238) [id number] 00:00:00 Test Item Value Reference Range Interpretation Comments TESTOSTERONE (test code = 2830) <12 NG/DL TESTOSTERONE REF RANGE (test code = (NOTE) 96163) [id number] 00:00:00 Test Item Value Reference Range Interpretation Comments TESTOSTERONE (test code = 2830) <12 NG/DL TESTOSTERONE REF RANGE (test code = (NOTE) 88793) [id number] 00:00:00 Test Item Value Reference Range Interpretation Comments PROLACTIN (test code = 2800) 5.8 NG/ML [id number] 00:00:00 Test Item Value Reference Range Interpretation Comments PROLACTIN (test code = 2800) 5.8 NG/ML FSH + LH [id number] 00:00:00 Test Item Value Reference Range Interpretation Comments FOLLICLE STIM HORMONE (test code = 8.9 MIU/ML 2700) LUTEINIZING HORMONE (test code = 6.5 MIU/ML 2776) FSH + LH [id number] 00:00:00 Test Item Value Reference Range Interpretation Comments FOLLICLE STIM HORMONE (test code = 8.9 MIU/ML 2700) LUTEINIZING HORMONE (test code = 6.5 MIU/ML 2776) VITAMIN D,1,63-[id number] 00:00:00 Test Item Value Reference Range Interpretation Comments VITAMIN D,1,25-DIHYDROXY (test 11.3 PG/ML code = 4960) VITAMIN D,1,37-[id number] 00:00:00 Test Item Value Reference Range Interpretation Comments VITAMIN D,1,25-DIHYDROXY (test 11.3 PG/ML code = 4960) VITAMIN B 12 AND FOLIC [id number] 00:00:00 Test Item Value Reference Range Interpretation Comments VITAMIN B-12 (test code = 2840) 925 PG/ML FOLIC ACID (test code = 2695) >24.0 NG/ML VITAMIN B 12 AND FOLIC [id number] 00:00:00 Test Item Value Reference Range Interpretation [...] (test code = 2821) 0.4 UIU/ML LIPID [id number] 00:00:00 Test Item Value Reference Range Interpretation Comments CHOLESTEROL (test code = 2210) 172 MG/DL TRIGLYCERIDES (test code = 2232) 136 MG/DL HDL CHOLESTEROL (test code = 2220) 44 MG/DL CALC LDL CHOL (test code = 2237) 101 MG/DL RISK RATIO LDL/HDL (test code = 2.29 RATIO 2238) LIPID [id number] 00:00:00 Test Item Value Reference Range Interpretation Comments CHOLESTEROL (test code = 2210) 172 MG/DL TRIGLYCERIDES (test code = 2232) 136 MG/DL HDL CHOLESTEROL (test code = 2220) 44 MG/DL CALC LDL CHOL (test code = 2237) 101 MG/DL RISK RATIO LDL/HDL (test code = 2.29 RATIO 2238) [id number] 00:00:00 Test Item Value Reference Range Interpretation Comments TESTOSTERONE (test code = 2830) <12 NG/DL TESTOSTERONE REF RANGE (test code = (NOTE) 95509) [id number] 00:00:00 Test Item Value Reference Range Interpretation Comments TESTOSTERONE (test code = 2830) <12 NG/DL TESTOSTERONE REF RANGE (test code = (NOTE) 06079) [id number] 00:00:00 Test Item Value Reference Range Interpretation Comments PROLACTIN (test code = 2800) 5.8 NG/ML [id number] 00:00:00 Test Item Value Reference Range Interpretation Comments PROLACTIN (test code = 2800) 5.8 NG/ML FSH + LH [id number] 00:00:00 Test Item Value Reference Range Interpretation Comments FOLLICLE STIM HORMONE (test code = 8.9 MIU/ML 2700) LUTEINIZING HORMONE (test code = 6.5 MIU/ML 2776) FSH + LH [id number] 00:00:00 Test Item Value Reference Range Interpretation Comments FOLLICLE STIM HORMONE (test code = 8.9 MIU/ML 2700) LUTEINIZING HORMONE (test code = 6.5 MIU/ML 2776) VITAMIN D,1,63-[id number] 00:00:00 Test Item Value Reference Range Interpretation Comments VITAMIN D,1,25-DIHYDROXY (test 11.3 PG/ML code = 4960) VITAMIN D,1,19-[id number] 00:00:00 Test Item Value Reference Range Interpretation Comments VITAMIN D,1,25-DIHYDROXY (test 11.3 PG/ML code = 4960) VITAMIN B 12 AND FOLIC [id number] 00:00:00 Test Item Value Reference Range Interpretation Comments VITAMIN B-12 (test code = 2840) 925 PG/ML FOLIC ACID (test code = 2695) >24.0 NG/ML VITAMIN B 12 AND FOLIC [id number] 00:00:00 Test Item Value Reference Range Interpretation [...] (test code = 2821) 0.4 UIU/ML LIPID [id number] 00:00:00 Test Item Value Reference Range Interpretation Comments CHOLESTEROL (test code = 2210) 172 MG/DL TRIGLYCERIDES (test code = 2232) 136 MG/DL HDL CHOLESTEROL (test code = 2220) 44 MG/DL CALC LDL CHOL (test code = 2237) 101 MG/DL RISK RATIO LDL/HDL (test code = 2.29 RATIO 2238) LIPID [id number] 00:00:00 Test Item Value Reference Range Interpretation Comments CHOLESTEROL (test code = 2210) 172 MG/DL TRIGLYCERIDES (test code = 2232) 136 MG/DL HDL CHOLESTEROL (test code = 2220) 44 MG/DL CALC LDL CHOL (test code = 2237) 101 MG/DL RISK RATIO LDL/HDL (test code = 2.29 RATIO 2238) [id number] 00:00:00 Test Item Value Reference Range Interpretation Comments TESTOSTERONE (test code = 2830) <12 NG/DL TESTOSTERONE REF RANGE (test code = (NOTE) 71116) [id number] 00:00:00 Test Item Value Reference Range Interpretation Comments TESTOSTERONE (test code = 2830) <12 NG/DL TESTOSTERONE REF RANGE (test code = (NOTE) 51934) [id number] 00:00:00 Test Item Value Reference Range Interpretation Comments PROLACTIN (test code = 2800) 5.8 NG/ML [id number] 00:00:00 Test Item Value Reference Range Interpretation Comments PROLACTIN (test code = 2800) 5.8 NG/ML FSH + LH [id number] 00:00:00 Test Item Value Reference Range Interpretation Comments FOLLICLE STIM HORMONE (test code = 8.9 MIU/ML 2700) LUTEINIZING HORMONE (test code = 6.5 MIU/ML 2776) FSH + LH [id number] 00:00:00 Test Item Value Reference Range Interpretation Comments FOLLICLE STIM HORMONE (test code = 8.9 MIU/ML 2700) LUTEINIZING HORMONE (test code = 6.5 MIU/ML 2776) VITAMIN D,1,39-[id number] 00:00:00 Test Item Value Reference Range Interpretation Comments VITAMIN D,1,25-DIHYDROXY (test 11.3 PG/ML code = 4960) VITAMIN D,1,52-[id number] 00:00:00 Test Item Value Reference Range Interpretation Comments VITAMIN D,1,25-DIHYDROXY (test 11.3 PG/ML code = 4960) VITAMIN B 12 AND FOLIC [id number] 00:00:00 Test Item Value Reference Range Interpretation Comments VITAMIN B-12 (test code = 2840) 925 PG/ML FOLIC ACID (test code = 2695) >24.0 NG/ML VITAMIN B 12 AND FOLIC [id number] 00:00:00 Test Item Value Reference Range Interpretation Comments VITAMIN B-12 (test code = 2840) 925 PG/ML FOLIC ACID (test code = 2695) >24.0 NG/ML THYROID II PROFILE (T3U, T4, T7, TSH)2016-03-22 00:00:00 Test Item Value Reference Range Interpretation Comments T3 UPTAKE (test code = 2817) 31.0 % T4 (THYROXINE) (test code = 2819) 7.4 UG/DL CALCULATED T7 (FTI) (test code = 2.29 7650) TSH (test code = 2821) 0.4 UIU/ML THYROID II PROFILE (T3U, T4, T7, TSH)2016-03-22 00:00:00 Test Item Value Reference Range Interpretation Comments T3 UPTAKE (test code = 2817) 31.0 % T4 (THYROXINE) (test code = 2819) 7.4 UG/DL CALCULATED T7 (FTI) (test code = 2.29 2820) TSH (test code = 2821) 0.4 UIU/ML LIPID [id number] 00:00:00 Test Item Value Reference Range Interpretation Comments CHOLESTEROL (test code = 2210) 172 MG/DL TRIGLYCERIDES (test code = 2232) 136 MG/DL HDL CHOLESTEROL (test code = 2220) 44 MG/DL CALC LDL CHOL (test code = 2237) 101 MG/DL RISK RATIO LDL/HDL (test code = 2.29 RATIO 2238) LIPID [id number] 00:00:00 Test Item Value Reference Range Interpretation Comments CHOLESTEROL (test code = 2210) 172 MG/DL TRIGLYCERIDES (test code = 2232) 136 MG/DL HDL CHOLESTEROL (test code = 2220) 44 MG/DL CALC LDL CHOL (test code = 2237) 101 MG/DL RISK RATIO LDL/HDL (test code = 2.29 RATIO 2238) [id number] 00:00:00 Test Item Value Reference Range Interpretation Comments TESTOSTERONE (test code = 2830) <12 NG/DL TESTOSTERONE REF RANGE (test code = (NOTE) 51364) [id number] 00:00:00 Test Item Value Reference Range Interpretation Comments TESTOSTERONE (test code = 2830) <12 NG/DL TESTOSTERONE REF RANGE (test code = (NOTE) 42876) [id number] 00:00:00 Test Item Value Reference Range Interpretation Comments PROLACTIN (test code = 2800) 5.8 NG/ML [id number] 00:00:00 Test Item Value Reference Range Interpretation Comments PROLACTIN (test code = 2800) 5.8 NG/ML FSH + LH [id number] 00:00:00 Test Item Value Reference Range Interpretation Comments FOLLICLE STIM HORMONE (test code = 8.9 MIU/ML 2700) LUTEINIZING HORMONE (test code = 6.5 MIU/ML 2776) FSH + LH [id number] 00:00:00 Test Item Value Reference Range Interpretation Comments FOLLICLE STIM HORMONE (test code = 8.9 MIU/ML 2700) LUTEINIZING HORMONE (test code = 6.5 MIU/ML 2776) VITAMIN D,1,85-[id number] 00:00:00 Test Item Value Reference Range Interpretation Comments VITAMIN D,1,25-DIHYDROXY (test 11.3 PG/ML code = 4960) VITAMIN D,1,90-[id number] 00:00:00 Test Item Value Reference Range Interpretation Comments VITAMIN D,1,25-DIHYDROXY (test 11.3 PG/ML code = 4960) VITAMIN B 12 AND FOLIC [id number] 00:00:00 Test Item Value Reference Range Interpretation Comments VITAMIN B-12 (test code = 2840) 925 PG/ML FOLIC ACID (test code = 2695) >24.0 NG/ML VITAMIN B 12 AND FOLIC [id number] 00:00:00 Test Item Value Reference Range Interpretation [...] (test code = 2821) 0.4 UIU/ML LIPID [id number] 00:00:00 Test Item Value Reference Range Interpretation Comments CHOLESTEROL (test code = 2210) 172 MG/DL TRIGLYCERIDES (test code = 2232) 136 MG/DL HDL CHOLESTEROL (test code = 2220) 44 MG/DL CALC LDL CHOL (test code = 2237) 101 MG/DL RISK RATIO LDL/HDL (test code = 2.29 RATIO 2238) LIPID [id number] 00:00:00 Test Item Value Reference Range Interpretation Comments CHOLESTEROL (test code = 2210) 172 MG/DL TRIGLYCERIDES (test code = 2232) 136 MG/DL HDL CHOLESTEROL (test code = 2220) 44 MG/DL CALC LDL CHOL (test code = 2237) 101 MG/DL RISK RATIO LDL/HDL (test code = 2.29 RATIO 2238) [id number] 00:00:00 Test Item Value Reference Range Interpretation Comments TESTOSTERONE (test code = 2830) <12 NG/DL TESTOSTERONE REF RANGE (test code = (NOTE) 80611) [id number] 00:00:00 Test Item Value Reference Range Interpretation Comments TESTOSTERONE (test code = 2830) <12 NG/DL TESTOSTERONE REF RANGE (test code = (NOTE) 88028) [id number] 00:00:00 Test Item Value Reference Range Interpretation Comments PROLACTIN (test code = 2800) 5.8 NG/ML [id number] 00:00:00 Test Item Value Reference Range Interpretation Comments PROLACTIN (test code = 2800) 5.8 NG/ML FSH + LH [id number] 00:00:00 Test Item Value Reference Range Interpretation Comments FOLLICLE STIM HORMONE (test code = 8.9 MIU/ML 2700) LUTEINIZING HORMONE (test code = 6.5 MIU/ML 2776) FSH + LH [id number] 00:00:00 Test Item Value Reference Range Interpretation Comments FOLLICLE STIM HORMONE (test code = 8.9 MIU/ML 2700) LUTEINIZING HORMONE (test code = 6.5 MIU/ML 2776) VITAMIN D,1,97-[id number] 00:00:00 Test Item Value Reference Range Interpretation Comments VITAMIN D,1,25-DIHYDROXY (test 11.3 PG/ML code = 4960) VITAMIN D,1,80-[id number] 00:00:00 Test Item Value Reference Range Interpretation Comments VITAMIN D,1,25-DIHYDROXY (test 11.3 PG/ML code = 4960) VITAMIN B 12 AND FOLIC [id number] 00:00:00 Test Item Value Reference Range Interpretation Comments VITAMIN B-12 (test code = 2840) 925 PG/ML FOLIC ACID (test code = 2695) >24.0 NG/ML VITAMIN B 12 AND FOLIC [id number] 00:00:00 Test Item Value Reference Range Interpretation [...] (test code = 2821) 0.4 UIU/ML LIPID [id number] 00:00:00 Test Item Value Reference Range Interpretation Comments CHOLESTEROL (test code = 2210) 172 MG/DL TRIGLYCERIDES (test code = 2232) 136 MG/DL HDL CHOLESTEROL (test code = 2220) 44 MG/DL CALC LDL CHOL (test code = 2237) 101 MG/DL RISK RATIO LDL/HDL (test code = 2.29 RATIO 2238) LIPID [id number] 00:00:00 Test Item Value Reference Range Interpretation Comments CHOLESTEROL (test code = 2210) 172 MG/DL TRIGLYCERIDES (test code = 2232) 136 MG/DL HDL CHOLESTEROL (test code = 2220) 44 MG/DL CALC LDL CHOL (test code = 2237) 101 MG/DL RISK RATIO LDL/HDL (test code = 2.29 RATIO 2238) [id number] 00:00:00 Test Item Value Reference Range Interpretation Comments TESTOSTERONE (test code = 2830) <12 NG/DL TESTOSTERONE REF RANGE (test code = (NOTE) 30556) [id number] 00:00:00 Test Item Value Reference Range Interpretation Comments TESTOSTERONE (test code = 2830) <12 NG/DL TESTOSTERONE REF RANGE (test code = (NOTE) 87961) [id number] 00:00:00 Test Item Value Reference Range Interpretation Comments PROLACTIN (test code = 2800) 5.8 NG/ML [id number] 00:00:00 Test Item Value Reference Range Interpretation Comments PROLACTIN (test code = 2800) 5.8 NG/ML FSH + LH [id number] 00:00:00 Test Item Value Reference Range Interpretation Comments FOLLICLE STIM HORMONE (test code = 8.9 MIU/ML 2700) LUTEINIZING HORMONE (test code = 6.5 MIU/ML 2776) FSH + LH [id number] 00:00:00 Test Item Value Reference Range Interpretation Comments FOLLICLE STIM HORMONE (test code = 8.9 MIU/ML 2700) LUTEINIZING HORMONE (test code = 6.5 MIU/ML 2776) VITAMIN D,1,69-[id number] 00:00:00 Test Item Value Reference Range Interpretation Comments VITAMIN D,1,25-DIHYDROXY (test 11.3 PG/ML code = 4960) VITAMIN D,1,92-[id number] 00:00:00 Test Item Value Reference Range Interpretation Comments VITAMIN D,1,25-DIHYDROXY (test 11.3 PG/ML code = 4960) VITAMIN B 12 AND FOLIC [id number] 00:00:00 Test Item Value Reference Range Interpretation Comments VITAMIN B-12 (test code = 2840) 925 PG/ML FOLIC ACID (test code = 2695) >24.0 NG/ML VITAMIN B 12 AND FOLIC [id number] 00:00:00 Test Item Value Reference Range Interpretation Comments VITAMIN B-12 (test code = 2840) 925 PG/ML FOLIC ACID (test code = 2695) >24.0 NG/ML THYROID II PROFILE (T3U, T4, T7, TSH)2016-03-22 00:00:00 Test Item Value Reference Range Interpretation Comments T3 UPTAKE (test code = 2817) 31.0 % T4 (THYROXINE) (test code = 2819) 7.4 UG/DL CALCULATED T7 (FTI) (test code = 2.29 8110) TSH (test code = 2821) 0.4 UIU/ML THYROID II PROFILE (T3U, T4, T7, TSH)2016-03-22 00:00:00 Test Item Value Reference Range Interpretation Comments T3 UPTAKE (test code = 2817) 31.0 % T4 (THYROXINE) (test code = 2819) 7.4 UG/DL CALCULATED T7 (FTI) (test code = 2.29 2820) TSH (test code = 2821) 0.4 UIU/ML LIPID [id number] 00:00:00 Test Item Value Reference Range Interpretation Comments CHOLESTEROL (test code = 2210) 172 MG/DL TRIGLYCERIDES (test code = 2232) 136 MG/DL HDL CHOLESTEROL (test code = 2220) 44 MG/DL CALC LDL CHOL (test code = 2237) 101 MG/DL RISK RATIO LDL/HDL (test code = 2.29 RATIO 2238) LIPID [id number] 00:00:00 Test Item Value Reference Range Interpretation Comments CHOLESTEROL (test code = 2210) 172 MG/DL TRIGLYCERIDES (test code = 2232) 136 MG/DL HDL CHOLESTEROL (test code = 2220) 44 MG/DL CALC LDL CHOL (test code = 2237) 101 MG/DL RISK RATIO LDL/HDL (test code = 2.29 RATIO 2238) [id number] 00:00:00 Test Item Value Reference Range Interpretation Comments TESTOSTERONE (test code = 2830) <12 NG/DL TESTOSTERONE REF RANGE (test code = (NOTE) 54343) [id number] 00:00:00 Test Item Value Reference Range Interpretation Comments TESTOSTERONE (test code = 2830) <12 NG/DL TESTOSTERONE REF RANGE (test code = (NOTE) 53735) [id number] 00:00:00 Test Item Value Reference Range Interpretation Comments PROLACTIN (test code = 2800) 5.8 NG/ML [id number] 00:00:00 Test Item Value Reference Range Interpretation Comments PROLACTIN (test code = 2800) 5.8 NG/ML FSH + LH [id number] 00:00:00 Test Item Value Reference Range Interpretation Comments FOLLICLE STIM HORMONE (test code = 8.9 MIU/ML 2700) LUTEINIZING HORMONE (test code = 6.5 MIU/ML 2776) FSH + LH [id number] 00:00:00 Test Item Value Reference Range Interpretation Comments FOLLICLE STIM HORMONE (test code = 8.9 MIU/ML 2700) LUTEINIZING HORMONE (test code = 6.5 MIU/ML 2776) VITAMIN D,1,09-[id number] 00:00:00 Test Item Value Reference Range Interpretation Comments VITAMIN D,1,25-DIHYDROXY (test 11.3 PG/ML code = 4960) VITAMIN B 12 AND FOLIC [id number] 00:00:00 Test Item Value Reference Range Interpretation [...] TSH (test code = 2821) 0.4 UIU/ML VITAMIN D,1,85-[id number] 00:00:00 Test Item Value Reference Range Interpretation Comments VITAMIN D,1,25-DIHYDROXY (test 11.3 PG/ML code = 4960) VITAMIN D,1,25-[id number] 00:00:00 Test Item Value Reference Range Interpretation Comments VITAMIN D,1,25-DIHYDROXY (test 11.3 PG/ML code = 4960) VITAMIN B 12 AND FOLIC [id number] 00:00:00 Test Item Value Reference Range Interpretation Comments VITAMIN B-12 (test code = 2840) 925 PG/ML FOLIC ACID (test code = 2695) >24.0 NG/ML VITAMIN B 12 AND FOLIC [id number] 00:00:00 Test Item Value Reference Range Interpretation [...] (test code = 2821) 0.4 UIU/ML LIPID [id number] 00:00:00 Test Item Value Reference Range Interpretation Comments CHOLESTEROL (test code = 2210) 172 MG/DL TRIGLYCERIDES (test code = 2232) 136 MG/DL HDL CHOLESTEROL (test code = 2220) 44 MG/DL CALC LDL CHOL (test code = 2237) 101 MG/DL RISK RATIO LDL/HDL (test code = 2.29 RATIO 2238) LIPID [id number] 00:00:00 Test Item Value Reference Range Interpretation Comments CHOLESTEROL (test code = 2210) 172 MG/DL TRIGLYCERIDES (test code = 2232) 136 MG/DL HDL CHOLESTEROL (test code = 2220) 44 MG/DL CALC LDL CHOL (test code = 2237) 101 MG/DL RISK RATIO LDL/HDL (test code = 2.29 RATIO 2238) [id number] 00:00:00 Test Item Value Reference Range Interpretation Comments TESTOSTERONE (test code = 2830) <12 NG/DL TESTOSTERONE REF RANGE (test code = (NOTE) 38302) [id number] 00:00:00 Test Item Value Reference Range Interpretation Comments TESTOSTERONE (test code = 2830) <12 NG/DL TESTOSTERONE REF RANGE (test code = (NOTE) 68260) [id number] 00:00:00 Test Item Value Reference Range Interpretation Comments PROLACTIN (test code = 2800) 5.8 NG/ML [id number] 00:00:00 Test Item Value Reference Range Interpretation Comments PROLACTIN (test code = 2800) 5.8 NG/ML FSH + LH [id number] 00:00:00 Test Item Value Reference Range Interpretation Comments FOLLICLE STIM HORMONE (test code = 8.9 MIU/ML 2700) LUTEINIZING HORMONE (test code = 6.5 MIU/ML 2776) FSH + LH [id number] 00:00:00 Test Item Value Reference Range Interpretation Comments FOLLICLE STIM HORMONE (test code = 8.9 MIU/ML 2700) LUTEINIZING HORMONE (test code = 6.5 MIU/ML 2776) LIPID [id number] 00:00:00 Test Item Value Reference Range Interpretation Comments CHOLESTEROL (test code = 2210) 172 MG/DL TRIGLYCERIDES (test code = 2232) 136 MG/DL HDL CHOLESTEROL (test code = 2220) 44 MG/DL CALC LDL CHOL (test code = 2237) 101 MG/DL RISK RATIO LDL/HDL (test code = 2.29 RATIO 2238) [id number] 00:00:00 Test Item Value Reference Range Interpretation Comments TESTOSTERONE (test code = 2830) <12 NG/DL TESTOSTERONE REF RANGE (test code = (NOTE) 02989) [id number] 00:00:00 Test Item Value Reference Range Interpretation Comments PROLACTIN (test code = 2800) 5.8 NG/ML FSH + LH [id number] 00:00:00 Test Item Value Reference Range Interpretation Comments FOLLICLE STIM HORMONE (test code = 8.9 MIU/ML 2700) LUTEINIZING HORMONE (test code = 6.5 MIU/ML 2776) VITAMIN D,1,73-[id number] 00:00:00 Test Item Value Reference Range Interpretation Comments VITAMIN D,1,25-DIHYDROXY (test 11.3 PG/ML code = 4960) VITAMIN D,1,72-[id number] 00:00:00 Test Item Value Reference Range Interpretation Comments VITAMIN D,1,25-DIHYDROXY (test 11.3 PG/ML code = 4960) VITAMIN B 12 AND FOLIC [id number] 00:00:00 Test Item Value Reference Range Interpretation Comments VITAMIN B-12 (test code = 2840) 925 PG/ML FOLIC ACID (test code = 2695) >24.0 NG/ML VITAMIN B 12 AND FOLIC [id number] 00:00:00 Test Item Value Reference Range Interpretation [...] (test code = 2821) 0.4 UIU/ML LIPID [id number] 00:00:00 Test Item Value Reference Range Interpretation Comments CHOLESTEROL (test code = 2210) 172 MG/DL TRIGLYCERIDES (test code = 2232) 136 MG/DL HDL CHOLESTEROL (test code = 2220) 44 MG/DL CALC LDL CHOL (test code = 2237) 101 MG/DL RISK RATIO LDL/HDL (test code = 2.29 RATIO 2238) LIPID [id number] 00:00:00 Test Item Value Reference Range Interpretation Comments CHOLESTEROL (test code = 2210) 172 MG/DL TRIGLYCERIDES (test code = 2232) 136 MG/DL HDL CHOLESTEROL (test code = 2220) 44 MG/DL CALC LDL CHOL (test code = 2237) 101 MG/DL RISK RATIO LDL/HDL (test code = 2.29 RATIO 2238) [id number] 00:00:00 Test Item Value Reference Range Interpretation Comments TESTOSTERONE (test code = 2830) <12 NG/DL TESTOSTERONE REF RANGE (test code = (NOTE) 95488) [id number] 00:00:00 Test Item Value Reference Range Interpretation Comments TESTOSTERONE (test code = 2830) <12 NG/DL TESTOSTERONE REF RANGE (test code = (NOTE) 95351) [id number] 00:00:00 Test Item Value Reference Range Interpretation Comments PROLACTIN (test code = 2800) 5.8 NG/ML [id number] 00:00:00 Test Item Value Reference Range Interpretation Comments PROLACTIN (test code = 2800) 5.8 NG/ML FSH + LH [id number] 00:00:00 Test Item Value Reference Range Interpretation Comments FOLLICLE STIM HORMONE (test code = 8.9 MIU/ML 2700) LUTEINIZING HORMONE (test code = 6.5 MIU/ML 2776) FSH + LH [id number] 00:00:00 Test Item Value Reference Range Interpretation Comments FOLLICLE STIM HORMONE (test code = 8.9 MIU/ML 2700) LUTEINIZING HORMONE (test code = 6.5 MIU/ML 2776) VITAMIN D,1,35-[id number] 00:00:00 Test Item Value Reference Range Interpretation Comments VITAMIN D,1,25-DIHYDROXY (test 11.3 PG/ML code = 4960) VITAMIN D,1,74-[id number] 00:00:00 Test Item Value Reference Range Interpretation Comments VITAMIN D,1,25-DIHYDROXY (test 11.3 PG/ML code = 4960) VITAMIN B 12 AND FOLIC [id number] 00:00:00 Test Item Value Reference Range Interpretation Comments VITAMIN B-12 (test code = 2840) 925 PG/ML FOLIC ACID (test code = 2695) >24.0 NG/ML VITAMIN B 12 AND FOLIC [id number] 00:00:00 Test Item Value Reference Range Interpretation [...] (test code = 2821) 0.4 UIU/ML LIPID [id number] 00:00:00 Test Item Value Reference Range Interpretation Comments CHOLESTEROL (test code = 2210) 172 MG/DL TRIGLYCERIDES (test code = 2232) 136 MG/DL HDL CHOLESTEROL (test code = 2220) 44 MG/DL CALC LDL CHOL (test code = 2237) 101 MG/DL RISK RATIO LDL/HDL (test code = 2.29 RATIO 2238) LIPID [id number] 00:00:00 Test Item Value Reference Range Interpretation Comments CHOLESTEROL (test code = 2210) 172 MG/DL TRIGLYCERIDES (test code = 2232) 136 MG/DL HDL CHOLESTEROL (test code = 2220) 44 MG/DL CALC LDL CHOL (test code = 2237) 101 MG/DL RISK RATIO LDL/HDL (test code = 2.29 RATIO 2238) [id number] 00:00:00 Test Item Value Reference Range Interpretation Comments TESTOSTERONE (test code = 2830) <12 NG/DL TESTOSTERONE REF RANGE (test code = (NOTE) 14908) [id number] 00:00:00 Test Item Value Reference Range Interpretation Comments TESTOSTERONE (test code = 2830) <12 NG/DL TESTOSTERONE REF RANGE (test code = (NOTE) 84744) [id number] 00:00:00 Test Item Value Reference Range Interpretation Comments PROLACTIN (test code = 2800) 5.8 NG/ML [id number] 00:00:00 Test Item Value Reference Range Interpretation Comments PROLACTIN (test code = 2800) 5.8 NG/ML FSH + LH [id number] 00:00:00 Test Item Value Reference Range Interpretation Comments FOLLICLE STIM HORMONE (test code = 8.9 MIU/ML 2700) LUTEINIZING HORMONE (test code = 6.5 MIU/ML 2776) FSH + LH [id number] 00:00:00 Test Item Value Reference Range Interpretation Comments FOLLICLE STIM HORMONE (test code = 8.9 MIU/ML 2700) LUTEINIZING HORMONE (test code = 6.5 MIU/ML 2776) SEDIMENTATION [id number] 00:00:00 Test Item Value Reference Range Interpretation Comments SEDIMENTATION RATE (test code = 35 MM/HOUR 1017) SEDIMENTATION [id number] 00:00:00 Test Item Value Reference Range Interpretation Comments SEDIMENTATION RATE (test code = 35 MM/HOUR 1017) CBC W/AUTO [id number] 00:00:00 Test Item Value Reference Range Interpretation [...] code = 1015) 246 K/UL CBC W/AUTO [id number] 00:00:00 Test Item Value Reference Range Interpretation [...] code = 1015) 246 K/UL CBC W/AUTO [id number] 00:00:00 Test Item Value Reference Range Interpretation [...] (test code = 1015) 246 K/UL HEMOGLOBIN [id number] 00:00:00 Test Item Value Reference Range Interpretation Comments HEMOGLOBIN A1c (test code = 58842) 6.2 % HEMOGLOBIN [id number] 00:00:00 Test Item Value Reference Range Interpretation Comments HEMOGLOBIN A1c (test code = 57349) 6.2 % HEMOGLOBIN [id number] 00:00:00 Test Item Value Reference Range Interpretation Comments HEMOGLOBIN A1c (test code = 56927) 6.2 % SEDIMENTATION [id number] 00:00:00 Test Item Value Reference Range Interpretation Comments SEDIMENTATION RATE (test code = 35 MM/HOUR 1017) SEDIMENTATION [id number] 00:00:00 Test Item Value Reference Range Interpretation Comments SEDIMENTATION RATE (test code = 35 MM/HOUR 1017) CBC W/AUTO [id number] 00:00:00 Test Item Value Reference Range Interpretation [...] code = 1015) 246 K/UL CBC W/AUTO [id number] 00:00:00 Test Item Value Reference Range Interpretation [...] code = 1015) 246 K/UL CBC W/AUTO [id number] 00:00:00 Test Item Value Reference Range Interpretation [...] (test code = 1015) 246 K/UL HEMOGLOBIN [id number] 00:00:00 Test Item Value Reference Range Interpretation Comments HEMOGLOBIN A1c (test code = 27509) 6.2 % HEMOGLOBIN [id number] 00:00:00 Test Item Value Reference Range Interpretation Comments HEMOGLOBIN A1c (test code = 83287) 6.2 % HEMOGLOBIN [id number] 00:00:00 Test Item Value Reference Range Interpretation Comments HEMOGLOBIN A1c (test code = 82175) 6.2 % SEDIMENTATION [id number] 00:00:00 Test Item Value Reference Range Interpretation Comments SEDIMENTATION RATE (test code = 35 MM/HOUR 1017) SEDIMENTATION [id number] 00:00:00 Test Item Value Reference Range Interpretation Comments SEDIMENTATION RATE (test code = 35 MM/HOUR 1017) CBC W/AUTO [id number] 00:00:00 Test Item Value Reference Range Interpretation [...] code = 1015) 246 K/UL CBC W/AUTO [id number] 00:00:00 Test Item Value Reference Range Interpretation [...] code = 1015) 246 K/UL CBC W/AUTO [id number] 00:00:00 Test Item Value Reference Range Interpretation [...] (test code = 1015) 246 K/UL HEMOGLOBIN [id number] 00:00:00 Test Item Value Reference Range Interpretation Comments HEMOGLOBIN A1c (test code = 26343) 6.2 % HEMOGLOBIN [id number] 00:00:00 Test Item Value Reference Range Interpretation Comments HEMOGLOBIN A1c (test code = 00099) 6.2 % HEMOGLOBIN [id number] 00:00:00 Test Item Value Reference Range Interpretation Comments HEMOGLOBIN A1c (test code = 37469) 6.2 % SEDIMENTATION [id number] 00:00:00 Test Item Value Reference Range Interpretation Comments SEDIMENTATION RATE (test code = 35 MM/HOUR 1017) SEDIMENTATION [id number] 00:00:00 Test Item Value Reference Range Interpretation Comments SEDIMENTATION RATE (test code = 35 MM/HOUR 1017) CBC W/AUTO [id number] 00:00:00 Test Item Value Reference Range Interpretation [...] code = 1015) 246 K/UL CBC W/AUTO [id number] 00:00:00 Test Item Value Reference Range Interpretation [...] code = 1015) 246 K/UL CBC W/AUTO [id number] 00:00:00 Test Item Value Reference Range Interpretation [...] (test code = 1015) 246 K/UL HEMOGLOBIN [id number] 00:00:00 Test Item Value Reference Range Interpretation Comments HEMOGLOBIN A1c (test code = 69814) 6.2 % HEMOGLOBIN [id number] 00:00:00 Test Item Value Reference Range Interpretation Comments HEMOGLOBIN A1c (test code = 11258) 6.2 % HEMOGLOBIN [id number] 00:00:00 Test Item Value Reference Range Interpretation Comments HEMOGLOBIN A1c (test code = 09553) 6.2 % SEDIMENTATION [id number] 00:00:00 Test Item Value Reference Range Interpretation Comments SEDIMENTATION RATE (test code = 35 MM/HOUR 1017) SEDIMENTATION [id number] 00:00:00 Test Item Value Reference Range Interpretation Comments SEDIMENTATION RATE (test code = 35 MM/HOUR 1017) CBC W/AUTO [id number] 00:00:00 Test Item Value Reference Range Interpretation [...] code = 1015) 246 K/UL CBC W/AUTO [id number] 00:00:00 Test Item Value Reference Range Interpretation [...] code = 1015) 246 K/UL CBC W/AUTO [id number] 00:00:00 Test Item Value Reference Range Interpretation [...] (test code = 1015) 246 K/UL HEMOGLOBIN [id number] 00:00:00 Test Item Value Reference Range Interpretation Comments HEMOGLOBIN A1c (test code = 62774) 6.2 % HEMOGLOBIN [id number] 00:00:00 Test Item Value Reference Range Interpretation Comments HEMOGLOBIN A1c (test code = 49305) 6.2 % HEMOGLOBIN [id number] 00:00:00 Test Item Value Reference Range Interpretation Comments HEMOGLOBIN A1c (test code = 13711) 6.2 % SEDIMENTATION [id number] 00:00:00 Test Item Value Reference Range Interpretation Comments SEDIMENTATION RATE (test code = 35 MM/HOUR 1017) SEDIMENTATION [id number] 00:00:00 Test Item Value Reference Range Interpretation Comments SEDIMENTATION RATE (test code = 35 MM/HOUR 1017) CBC W/AUTO [id number] 00:00:00 Test Item Value Reference Range Interpretation [...] code = 1015) 246 K/UL CBC W/AUTO [id number] 00:00:00 Test Item Value Reference Range Interpretation [...] code = 1015) 246 K/UL CBC W/AUTO [id number] 00:00:00 Test Item Value Reference Range Interpretation [...] (test code = 1015) 246 K/UL HEMOGLOBIN [id number] 00:00:00 Test Item Value Reference Range Interpretation Comments HEMOGLOBIN A1c (test code = 03399) 6.2 % HEMOGLOBIN [id number] 00:00:00 Test Item Value Reference Range Interpretation Comments HEMOGLOBIN A1c (test code = 33554) 6.2 % HEMOGLOBIN [id number] 00:00:00 Test Item Value Reference Range Interpretation Comments HEMOGLOBIN A1c (test code = 01165) 6.2 % SEDIMENTATION [id number] 00:00:00 Test Item Value Reference Range Interpretation Comments SEDIMENTATION RATE (test code = 35 MM/HOUR 1017) SEDIMENTATION [id number] 00:00:00 Test Item Value Reference Range Interpretation Comments SEDIMENTATION RATE (test code = 35 MM/HOUR 1017) CBC W/AUTO [id number] 00:00:00 Test Item Value Reference Range Interpretation [...] code = 1015) 246 K/UL CBC W/AUTO [id number] 00:00:00 Test Item Value Reference Range Interpretation [...] code = 1015) 246 K/UL CBC W/AUTO [id number] 00:00:00 Test Item Value Reference Range Interpretation [...] (test code = 1015) 246 K/UL HEMOGLOBIN [id number] 00:00:00 Test Item Value Reference Range Interpretation Comments HEMOGLOBIN A1c (test code = 76135) 6.2 % HEMOGLOBIN [id number] 00:00:00 Test Item Value Reference Range Interpretation Comments HEMOGLOBIN A1c (test code = 03118) 6.2 % HEMOGLOBIN [id number] 00:00:00 Test Item Value Reference Range Interpretation Comments HEMOGLOBIN A1c (test code = 90975) 6.2 % SEDIMENTATION [id number] 00:00:00 Test Item Value Reference Range Interpretation Comments SEDIMENTATION RATE (test code = 35 MM/HOUR 1017) SEDIMENTATION [id number] 00:00:00 Test Item Value Reference Range Interpretation Comments SEDIMENTATION RATE (test code = 35 MM/HOUR 1017) SEDIMENTATION [id number] 00:00:00 Test Item Value Reference Range Interpretation Comments SEDIMENTATION RATE (test code = 35 MM/HOUR 1017) CBC W/AUTO [id number] 00:00:00 Test Item Value Reference Range Interpretation [...] code = 1015) 246 K/UL CBC W/AUTO [id number] 00:00:00 Test Item Value Reference Range Interpretation [...] code = 1015) 246 K/UL CBC W/AUTO [id number] 00:00:00 Test Item Value Reference Range Interpretation [...] code = 1015) 246 K/UL CBC W/AUTO [id number] 00:00:00 Test Item Value Reference Range Interpretation [...] (test code = 1015) 246 K/UL HEMOGLOBIN [id number] 00:00:00 Test Item Value Reference Range Interpretation Comments HEMOGLOBIN A1c (test code = 83689) 6.2 % HEMOGLOBIN [id number] 00:00:00 Test Item Value Reference Range Interpretation Comments HEMOGLOBIN A1c (test code = 38569) 6.2 % HEMOGLOBIN [id number] 00:00:00 Test Item Value Reference Range Interpretation Comments HEMOGLOBIN A1c (test code = 15782) 6.2 % CBC W/AUTO [id number] 00:00:00 Test Item Value Reference Range Interpretation [...] (test code = 1015) 246 K/UL HEMOGLOBIN [id number] 00:00:00 Test Item Value Reference Range Interpretation Comments HEMOGLOBIN A1c (test code = 21667) 6.2 % HEMOGLOBIN [id number] 00:00:00 Test Item Value Reference Range Interpretation Comments HEMOGLOBIN A1c (test code = 26742) 6.2 % SEDIMENTATION [id number] 00:00:00 Test Item Value Reference Range Interpretation Comments SEDIMENTATION RATE (test code = 35 MM/HOUR 1017) SEDIMENTATION [id number] 00:00:00 Test Item Value Reference Range Interpretation Comments SEDIMENTATION RATE (test code = 35 MM/HOUR 1017) CBC W/AUTO [id number] 00:00:00 Test Item Value Reference Range Interpretation [...] code = 1015) 246 K/UL CBC W/AUTO [id number] 00:00:00 Test Item Value Reference Range Interpretation [...] code = 1015) 246 K/UL CBC W/AUTO [id number] 00:00:00 Test Item Value Reference Range Interpretation [...] (test code = 1015) 246 K/UL HEMOGLOBIN [id number] 00:00:00 Test Item Value Reference Range Interpretation Comments HEMOGLOBIN A1c (test code = 78142) 6.2 % HEMOGLOBIN [id number] 00:00:00 Test Item Value Reference Range Interpretation Comments HEMOGLOBIN A1c (test code = 98370) 6.2 % HEMOGLOBIN [id number] 00:00:00 Test Item Value Reference Range Interpretation Comments HEMOGLOBIN A1c (test code = 43314) 6.2 % SEDIMENTATION [id number] 00:00:00 Test Item Value Reference Range Interpretation Comments SEDIMENTATION RATE (test code = 35 MM/HOUR 1017) SEDIMENTATION [id number] 00:00:00 Test Item Value Reference Range Interpretation Comments SEDIMENTATION RATE (test code = 35 MM/HOUR 1017) CBC W/AUTO [id number] 00:00:00 Test Item Value Reference Range Interpretation [...] code = 1015) 246 K/UL CBC W/AUTO [id number] 00:00:00 Test Item Value Reference Range Interpretation [...] code = 1015) 246 K/UL CBC W/AUTO [id number] 00:00:00 Test Item Value Reference Range Interpretation [...] (test code = 1015) 246 K/UL HEMOGLOBIN [id number] 00:00:00 Test Item Value Reference Range Interpretation Comments HEMOGLOBIN A1c (test code = 53024) 6.2 % HEMOGLOBIN [id number] 00:00:00 Test Item Value Reference Range Interpretation Comments HEMOGLOBIN A1c (test code = 38454) 6.2 % HEMOGLOBIN [id number] 00:00:00 Test Item Value Reference Range Interpretation Comments HEMOGLOBIN A1c (test code = 91676) 6.2 % COMPREHENSIVE METABOLIC [id number] 00:00:00 Test Item Value Reference Range Interpretation Comments GLUCOSE (test code = 2217) 100 MG/DL BUN (test code = 2208) 10 MG/DL CREATININE (test code = 2214) 0.61 MG/DL eGFR AMER. (test code 134 ML/MIN/1.73 = 54359) eGFR NON- AMER. (test 116 ML/MIN/1.73 code = 74459) CALCULATED BUN/CREAT (test 16 RATIO code = 2235) SODIUM (test code = 2231) 145 MEQ/L POTASSIUM (test code = 2228) 4.6 MEQ/L CHLORIDE (test code = 2215) 105 MEQ/L CARBON DIOXIDE (test code = 19 MEQ/L 2206) CALCIUM (test code = 2209) [...] code = 2219) 16 U/L COMPREHENSIVE METABOLIC [id number] 00:00:00 Test Item Value Reference Range Interpretation Comments GLUCOSE (test code = 2217) 100 MG/DL BUN (test code = 2208) 10 MG/DL CREATININE (test code = 2214) 0.61 MG/DL eGFR AMER. (test code 134 ML/MIN/1.73 = 21515) eGFR NON- AMER. (test 116 ML/MIN/1.73 code = 92312) CALCULATED BUN/CREAT (test 16 RATIO code = 2235) SODIUM (test code = 2231) 145 MEQ/L POTASSIUM (test code = 2228) 4.6 MEQ/L CHLORIDE (test code = 2215) 105 MEQ/L CARBON DIOXIDE (test code = 19 MEQ/L 2206) CALCIUM (test code = 2209) [...] (test code = 2219) 16 U/L LIPID [id number] 00:00:00 Test Item Value Reference Range Interpretation Comments CHOLESTEROL (test code = 2210) 166 MG/DL TRIGLYCERIDES (test code = 2232) 72 MG/DL HDL CHOLESTEROL (test code = 2220) 47 MG/DL CALCULATED LDL CHOL (test code = 105 MG/DL 2237) RISK RATIO LDL/HDL (test code = 2.23 RATIO 2238) LIPID [id number] 00:00:00 Test Item Value Reference Range Interpretation Comments CHOLESTEROL (test code = 2210) 166 MG/DL TRIGLYCERIDES (test code = 2232) 72 MG/DL HDL CHOLESTEROL (test code = 2220) 47 MG/DL CALCULATED LDL CHOL (test code = 105 MG/DL 2237) RISK RATIO LDL/HDL (test code = 2.23 RATIO 2238) [id number] 00:00:00 Test Item Value Reference Range Interpretation Comments TSH (test code = 2821) 1.2 UIU/ML [id number] 00:00:00 Test Item Value Reference Range Interpretation Comments TSH (test code = 2821) 1.2 UIU/ML [id number] 00:00:00 Test Item Value Reference Range Interpretation Comments TSH (test code = 2821) 1.2 UIU/ML COMPREHENSIVE METABOLIC [id number] 00:00:00 Test Item Value Reference Range Interpretation Comments GLUCOSE (test code = 2217) 100 MG/DL BUN (test code = 2208) 10 MG/DL CREATININE (test code = 2214) 0.61 MG/DL eGFR AMER. (test code 134 ML/MIN/1.73 = 33313) eGFR NON- AMER. (test 116 ML/MIN/1.73 code = 03126) CALCULATED BUN/CREAT (test 16 RATIO code = 2235) SODIUM (test code = 2231) 145 MEQ/L POTASSIUM (test code = 2228) 4.6 MEQ/L CHLORIDE (test code = 2215) 105 MEQ/L CARBON DIOXIDE (test code = 19 MEQ/L 2206) CALCIUM (test code = 2209) 9.8 MG/DL PROTEIN, TOTAL (test code = 7.8 G/DL 2228) ALBUMIN (test code = 2201) 4.7 G/DL CALCULATED GLOBULIN (test 3.1 G/DL code = 2240) CALCULATED A/G RATIO (test 1.5 RATIO code = 2234) BILIRUBIN, TOTAL (test code = 0.2 MG/DL 2206) ALKALINE PHOSPHATASE (test 35 U/L code = 220) SGOT (AST) (test code = 2218) 16 U/L SGPT (ALT) (test code = 2219) 16 U/L COMPREHENSIVE METABOLIC [id number] 00:00:00 Test Item Value Reference Range Interpretation Comments GLUCOSE (test code = 2217) 100 MG/DL BUN (test code = 2208) 10 MG/DL CREATININE (test code = 2214) 0.61 MG/DL eGFR AMER. (test code 134 ML/MIN/1.73 = 26715) eGFR NON- AMER. (test 116 ML/MIN/1.73 code = 12357) CALCULATED BUN/CREAT (test 16 RATIO code = 2235) SODIUM (test code = 2231) 145 MEQ/L POTASSIUM (test code = 2228) 4.6 MEQ/L CHLORIDE (test code = 2215) 105 MEQ/L CARBON DIOXIDE (test code = 19 MEQ/L 2206) CALCIUM (test code = 2209) [...] (test code = 2219) 16 U/L LIPID [id number] 00:00:00 Test Item Value Reference Range Interpretation Comments CHOLESTEROL (test code = 2210) 166 MG/DL TRIGLYCERIDES (test code = 2232) 72 MG/DL HDL CHOLESTEROL (test code = 2220) 47 MG/DL CALCULATED LDL CHOL (test code = 105 MG/DL 2237) RISK RATIO LDL/HDL (test code = 2.23 RATIO 2238) LIPID [id number] 00:00:00 Test Item Value Reference Range Interpretation Comments CHOLESTEROL (test code = 2210) 166 MG/DL TRIGLYCERIDES (test code = 2232) 72 MG/DL HDL CHOLESTEROL (test code = 2220) 47 MG/DL CALCULATED LDL CHOL (test code = 105 MG/DL 2237) RISK RATIO LDL/HDL (test code = 2.23 RATIO 2238) [id number] 00:00:00 Test Item Value Reference Range Interpretation Comments TSH (test code = 2821) 1.2 UIU/ML [id number] 00:00:00 Test Item Value Reference Range Interpretation Comments TSH (test code = 2821) 1.2 UIU/ML [id number] 00:00:00 Test Item Value Reference Range Interpretation Comments TSH (test code = 2821) 1.2 UIU/ML COMPREHENSIVE METABOLIC [id number] 00:00:00 Test Item Value Reference Range Interpretation Comments GLUCOSE (test code = 2217) 100 MG/DL BUN (test code = 2208) 10 MG/DL CREATININE (test code = 2214) 0.61 MG/DL eGFR AMER. (test code 134 ML/MIN/1.73 = 03387) eGFR NON- AMER. (test 116 ML/MIN/1.73 code = 88020) CALCULATED BUN/CREAT (test 16 RATIO code = [...] code = 2219) 16 U/L COMPREHENSIVE METABOLIC [id number] 00:00:00 Test Item Value Reference Range Interpretation Comments GLUCOSE (test code = 2217) 100 MG/DL BUN (test code = 2208) 10 MG/DL CREATININE (test code = 2214) 0.61 MG/DL eGFR AMER. (test code 134 ML/MIN/1.73 = 44946) eGFR NON- AMER. (test 116 ML/MIN/1.73 code = 92257) CALCULATED BUN/CREAT (test 16 RATIO code = [...] (test code = 2219) 16 U/L LIPID [id number] 00:00:00 Test Item Value Reference Range Interpretation Comments CHOLESTEROL (test code = 2210) 166 MG/DL TRIGLYCERIDES (test code = 2232) 72 MG/DL HDL CHOLESTEROL (test code = 2220) 47 MG/DL CALCULATED LDL CHOL (test code = 105 MG/DL 2236) RISK RATIO LDL/HDL (test code = 2.23 RATIO 2237) LIPID [id number] 00:00:00 Test Item Value Reference Range Interpretation Comments CHOLESTEROL (test code = 2210) 166 MG/DL TRIGLYCERIDES (test code = 2232) 72 MG/DL HDL CHOLESTEROL (test code = 2220) 47 MG/DL CALCULATED LDL CHOL (test code = 105 MG/DL 2236) RISK RATIO LDL/HDL (test code = 2.23 RATIO 2238) [id number] 00:00:00 Test Item Value Reference Range Interpretation Comments TSH (test code = 2821) 1.2 UIU/ML [id number] 00:00:00 Test Item Value Reference Range Interpretation Comments TSH (test code = 2821) 1.2 UIU/ML [id number] 00:00:00 Test Item Value Reference Range Interpretation Comments TSH (test code = 2821) 1.2 UIU/ML COMPREHENSIVE METABOLIC [id number] 00:00:00 Test Item Value Reference Range Interpretation Comments GLUCOSE (test code = 2217) 100 MG/DL BUN (test code = 2208) 10 MG/DL CREATININE (test code = 2214) 0.61 MG/DL eGFR AMER. (test code 134 ML/MIN/1.73 = 60182) eGFR NON- AMER. (test 116 ML/MIN/1.73 code = 74633) CALCULATED BUN/CREAT (test 16 RATIO code = [...] code = 2219) 16 U/L COMPREHENSIVE METABOLIC [id number] 00:00:00 Test Item Value Reference Range Interpretation Comments GLUCOSE (test code = 2217) 100 MG/DL BUN (test code = 2208) 10 MG/DL CREATININE (test code = 2214) 0.61 MG/DL eGFR AMER. (test code 134 ML/MIN/1.73 = 95003) eGFR NON- AMER. (test 116 ML/MIN/1.73 code = 15813) CALCULATED BUN/CREAT (test 16 RATIO code = [...] (test code = 2219) 16 U/L LIPID [id number] 00:00:00 Test Item Value Reference Range Interpretation Comments CHOLESTEROL (test code = 2210) 166 MG/DL TRIGLYCERIDES (test code = 2232) 72 MG/DL HDL CHOLESTEROL (test code = 2220) 47 MG/DL CALCULATED LDL CHOL (test code = 105 MG/DL 2236) RISK RATIO LDL/HDL (test code = 2.23 RATIO 2238) LIPID [id number] 00:00:00 Test Item Value Reference Range Interpretation Comments CHOLESTEROL (test code = 2210) 166 MG/DL TRIGLYCERIDES (test code = 2232) 72 MG/DL HDL CHOLESTEROL (test code = 2220) 47 MG/DL CALCULATED LDL CHOL (test code = 105 MG/DL 2236) RISK RATIO LDL/HDL (test code = 2.23 RATIO 2238) [id number] 00:00:00 Test Item Value Reference Range Interpretation Comments TSH (test code = 2821) 1.2 UIU/ML [id number] 00:00:00 Test Item Value Reference Range Interpretation Comments TSH (test code = 2821) 1.2 UIU/ML [id number] 00:00:00 Test Item Value Reference Range Interpretation Comments TSH (test code = 2821) 1.2 UIU/ML COMPREHENSIVE METABOLIC [id number] 00:00:00 Test Item Value Reference Range Interpretation Comments GLUCOSE (test code = 2217) 100 MG/DL BUN (test code = 2208) 10 MG/DL CREATININE (test code = 2214) 0.61 MG/DL eGFR AMER. (test code 134 ML/MIN/1.73 = 76265) eGFR NON- AMER. (test 116 ML/MIN/1.73 code = 73687) CALCULATED BUN/CREAT (test 16 RATIO code = [...] code = 2219) 16 U/L COMPREHENSIVE METABOLIC [id number] 00:00:00 Test Item Value Reference Range Interpretation Comments GLUCOSE (test code = 2217) 100 MG/DL BUN (test code = 2208) 10 MG/DL CREATININE (test code = 2214) 0.61 MG/DL eGFR AMER. (test code 134 ML/MIN/1.73 = 73510) eGFR NON- AMER. (test 116 ML/MIN/1.73 code = 97776) CALCULATED BUN/CREAT (test 16 RATIO code = [...] (test code = 2219) 16 U/L LIPID [id number] 00:00:00 Test Item Value Reference Range Interpretation Comments CHOLESTEROL (test code = 2210) 166 MG/DL TRIGLYCERIDES (test code = 2232) 72 MG/DL HDL CHOLESTEROL (test code = 2220) 47 MG/DL CALCULATED LDL CHOL (test code = 105 MG/DL 2236) RISK RATIO LDL/HDL (test code = 2.23 RATIO 2238) LIPID [id number] 00:00:00 Test Item Value Reference Range Interpretation Comments CHOLESTEROL (test code = 2210) 166 MG/DL TRIGLYCERIDES (test code = 2232) 72 MG/DL HDL CHOLESTEROL (test code = 2220) 47 MG/DL CALCULATED LDL CHOL (test code = 105 MG/DL 7) RISK RATIO LDL/HDL (test code = 2.23 RATIO 2238) [id number] 00:00:00 Test Item Value Reference Range Interpretation Comments TSH (test code = 2821) 1.2 UIU/ML [id number] 00:00:00 Test Item Value Reference Range Interpretation Comments TSH (test code = 2821) 1.2 UIU/ML [id number] 00:00:00 Test Item Value Reference Range Interpretation Comments TSH (test code = 2821) 1.2 UIU/ML COMPREHENSIVE METABOLIC [id number] 00:00:00 Test Item Value Reference Range Interpretation Comments GLUCOSE (test code = 2217) 100 MG/DL BUN (test code = 2208) 10 MG/DL CREATININE (test code = 2214) 0.61 MG/DL eGFR AMER. (test code 134 ML/MIN/1.73 = 35313) eGFR NON- AMER. (test 116 ML/MIN/1.73 code = 33538) CALCULATED BUN/CREAT (test 16 RATIO code = 2235) SODIUM (test code = 2231) 145 MEQ/L POTASSIUM (test code = 2228) 4.6 MEQ/L CHLORIDE (test code = 2215) 105 MEQ/L CARBON DIOXIDE (test code = 19 MEQ/L 220) CALCIUM (test code = 2209) 9.8 MG/DL [...] code = 2219) 16 U/L COMPREHENSIVE METABOLIC [id number] 00:00:00 Test Item Value Reference Range Interpretation Comments GLUCOSE (test code = 2217) 100 MG/DL BUN (test code = 2208) 10 MG/DL CREATININE (test code = 2214) 0.61 MG/DL eGFR AMER. (test code 134 ML/MIN/1.73 = 53323) eGFR NON- AMER. (test 116 ML/MIN/1.73 code = 11872) CALCULATED BUN/CREAT (test 16 RATIO code = 2235) SODIUM (test code = 2231) 145 MEQ/L POTASSIUM (test code = 2228) 4.6 MEQ/L CHLORIDE (test code = 2215) 105 MEQ/L CARBON DIOXIDE (test code = 19 MEQ/L 220) CALCIUM (test code = 2209) 9.8 MG/DL [...] (test code = 2219) 16 U/L LIPID [id number] 00:00:00 Test Item Value Reference Range Interpretation Comments CHOLESTEROL (test code = 2210) 166 MG/DL TRIGLYCERIDES (test code = 2232) 72 MG/DL HDL CHOLESTEROL (test code = 2220) 47 MG/DL CALCULATED LDL CHOL (test code = 105 MG/DL 2237) RISK RATIO LDL/HDL (test code = 2.23 RATIO 2238) LIPID [id number] 00:00:00 Test Item Value Reference Range Interpretation Comments CHOLESTEROL (test code = 2210) 166 MG/DL TRIGLYCERIDES (test code = 2232) 72 MG/DL HDL CHOLESTEROL (test code = 2220) 47 MG/DL CALCULATED LDL CHOL (test code = 105 MG/DL 2237) RISK RATIO LDL/HDL (test code = 2.23 RATIO 2238) [id number] 00:00:00 Test Item Value Reference Range Interpretation Comments TSH (test code = 2821) 1.2 UIU/ML [id number] 00:00:00 Test Item Value Reference Range Interpretation Comments TSH (test code = 2821) 1.2 UIU/ML [id number] 00:00:00 Test Item Value Reference Range Interpretation Comments TSH (test code = 2821) 1.2 UIU/ML COMPREHENSIVE METABOLIC [id number] 00:00:00 Test Item Value Reference Range Interpretation Comments GLUCOSE (test code = 2217) 100 MG/DL BUN (test code = 2208) 10 MG/DL CREATININE (test code = 2214) 0.61 MG/DL eGFR AMER. (test code 134 ML/MIN/1.73 = 10675) eGFR NON- AMER. (test 116 ML/MIN/1.73 code = 97677) CALCULATED BUN/CREAT (test 16 RATIO code = [...] code = 2219) 16 U/L COMPREHENSIVE METABOLIC [id number] 00:00:00 Test Item Value Reference Range Interpretation Comments GLUCOSE (test code = 2217) 100 MG/DL BUN (test code = 2208) 10 MG/DL CREATININE (test code = 2214) 0.61 MG/DL eGFR AMER. (test code 134 ML/MIN/1.73 = 98956) eGFR NON- AMER. (test 116 ML/MIN/1.73 code = 99423) CALCULATED BUN/CREAT (test 16 RATIO code = [...] code = 2219) 16 U/L COMPREHENSIVE METABOLIC [id number] 00:00:00 Test Item Value Reference Range Interpretation Comments GLUCOSE (test code = 2217) 100 MG/DL BUN (test code = 2208) 10 MG/DL CREATININE (test code = 2214) 0.61 MG/DL eGFR AMER. (test code 134 ML/MIN/1.73 = 36759) eGFR NON- AMER. (test 116 ML/MIN/1.73 code = 76637) CALCULATED BUN/CREAT (test 16 RATIO code = [...] (test code = 2219) 16 U/L LIPID [id number] 00:00:00 Test Item Value Reference Range Interpretation Comments CHOLESTEROL (test code = 2210) 166 MG/DL TRIGLYCERIDES (test code = 2232) 72 MG/DL HDL CHOLESTEROL (test code = 2220) 47 MG/DL CALCULATED LDL CHOL (test code = 105 MG/DL 7) RISK RATIO LDL/HDL (test code = 2.23 RATIO 2238) LIPID [id number] 00:00:00 Test Item Value Reference Range Interpretation Comments CHOLESTEROL (test code = 2210) 166 MG/DL TRIGLYCERIDES (test code = 2232) 72 MG/DL HDL CHOLESTEROL (test code = 2220) 47 MG/DL CALCULATED LDL CHOL (test code = 105 MG/DL 2237) RISK RATIO LDL/HDL (test code = 2.23 RATIO 2238) [id number] 00:00:00 Test Item Value Reference Range Interpretation Comments TSH (test code = 2821) 1.2 UIU/ML [id number] 00:00:00 Test Item Value Reference Range Interpretation Comments TSH (test code = 2821) 1.2 UIU/ML [id number] 00:00:00 Test Item Value Reference Range Interpretation Comments TSH (test code = 2821) 1.2 UIU/ML LIPID [id number] 00:00:00 Test Item Value Reference Range Interpretation Comments CHOLESTEROL (test code = 2210) 166 MG/DL TRIGLYCERIDES (test code = 2232) 72 MG/DL HDL CHOLESTEROL (test code = 2220) 47 MG/DL CALCULATED LDL CHOL (test code = 105 MG/DL 2236) RISK RATIO LDL/HDL (test code = 2.23 RATIO 2237) COMPREHENSIVE METABOLIC [id number] 00:00:00 Test Item Value Reference Range Interpretation Comments GLUCOSE (test code = 2217) 100 MG/DL BUN (test code = 2208) 10 MG/DL CREATININE (test code = 2214) 0.61 MG/DL eGFR AMER. (test code 134 ML/MIN/1.73 = 45608) eGFR NON- AMER. (test 116 ML/MIN/1.73 code = 90837) CALCULATED BUN/CREAT (test 16 RATIO code = [...] code = 2219) 16 U/L COMPREHENSIVE METABOLIC [id number] 00:00:00 Test Item Value Reference Range Interpretation Comments GLUCOSE (test code = 2217) 100 MG/DL BUN (test code = 2208) 10 MG/DL CREATININE (test code = 2214) 0.61 MG/DL eGFR AMER. (test code 134 ML/MIN/1.73 = 54438) eGFR NON- AMER. (test 116 ML/MIN/1.73 code = 45925) CALCULATED BUN/CREAT (test 16 RATIO code = [...] (test code = 2219) 16 U/L LIPID [id number] 00:00:00 Test Item Value Reference Range Interpretation Comments CHOLESTEROL (test code = 2210) 166 MG/DL TRIGLYCERIDES (test code = 2232) 72 MG/DL HDL CHOLESTEROL (test code = 2220) 47 MG/DL CALCULATED LDL CHOL (test code = 105 MG/DL 7) RISK RATIO LDL/HDL (test code = 2.23 RATIO 2238) LIPID [id number] 00:00:00 Test Item Value Reference Range Interpretation Comments CHOLESTEROL (test code = 2210) 166 MG/DL TRIGLYCERIDES (test code = 2232) 72 MG/DL HDL CHOLESTEROL (test code = 2220) 47 MG/DL CALCULATED LDL CHOL (test code = 105 MG/DL 2237) RISK RATIO LDL/HDL (test code = 2.23 RATIO 2238) [id number] 00:00:00 Test Item Value Reference Range Interpretation Comments TSH (test code = 2821) 1.2 UIU/ML [id number] 00:00:00 Test Item Value Reference Range Interpretation Comments TSH (test code = 2821) 1.2 UIU/ML [id number] 00:00:00 Test Item Value Reference Range Interpretation Comments TSH (test code = 2821) 1.2 UIU/ML [id number] 00:00:00 Test Item Value Reference Range Interpretation Comments TSH (test code = 2821) 1.2 UIU/ML [id number] 00:00:00 Test Item Value Reference Range Interpretation Comments TSH (test code = 2821) 1.2 UIU/ML COMPREHENSIVE METABOLIC [id number] 00:00:00 Test Item Value Reference Range Interpretation Comments GLUCOSE (test code = 2217) 100 MG/DL BUN (test code = 2208) 10 MG/DL CREATININE (test code = 2214) 0.61 MG/DL eGFR AMER. (test code 134 ML/MIN/1.73 = 08775) eGFR NON- AMER. (test 116 ML/MIN/1.73 code = 79239) CALCULATED BUN/CREAT (test 16 RATIO code = 2235) SODIUM (test code = 2231) 145 MEQ/L POTASSIUM (test code = 2228) 4.6 MEQ/L CHLORIDE (test code = 2215) 105 MEQ/L CARBON DIOXIDE (test code = 19 MEQ/L 220) CALCIUM (test code = 2209) 9.8 MG/DL [...] code = 2219) 16 U/L COMPREHENSIVE METABOLIC [id number] 00:00:00 Test Item Value Reference Range Interpretation Comments GLUCOSE (test code = 2217) 100 MG/DL BUN (test code = 2208) 10 MG/DL CREATININE (test code = 2214) 0.61 MG/DL eGFR AMER. (test code 134 ML/MIN/1.73 = 30573) eGFR NON- AMER. (test 116 ML/MIN/1.73 code = 73598) CALCULATED BUN/CREAT (test 16 RATIO code = 2235) SODIUM (test code = 2231) 145 MEQ/L POTASSIUM (test code = 2228) 4.6 MEQ/L CHLORIDE (test code = 2215) 105 MEQ/L CARBON DIOXIDE (test code = 19 MEQ/L 2206) CALCIUM (test code = 2209) [...] (test code = 2219) 16 U/L LIPID [id number] 00:00:00 Test Item Value Reference Range Interpretation Comments CHOLESTEROL (test code = 2210) 166 MG/DL TRIGLYCERIDES (test code = 2232) 72 MG/DL HDL CHOLESTEROL (test code = 2220) 47 MG/DL CALCULATED LDL CHOL (test code = 105 MG/DL 2237) RISK RATIO LDL/HDL (test code = 2.23 RATIO 2238) LIPID [id number] 00:00:00 Test Item Value Reference Range Interpretation Comments CHOLESTEROL (test code = 2210) 166 MG/DL TRIGLYCERIDES (test code = 2232) 72 MG/DL HDL CHOLESTEROL (test code = 2220) 47 MG/DL CALCULATED LDL CHOL (test code = 105 MG/DL 2237) RISK RATIO LDL/HDL (test code = 2.23 RATIO 2238) [id number] 00:00:00 Test Item Value Reference Range Interpretation Comments TSH (test code = 2821) 1.2 UIU/ML [id number] 00:00:00 Test Item Value Reference Range Interpretation Comments TSH (test code = 2821) 1.2 UIU/ML [id number] 00:00:00 Test Item Value Reference Range Interpretation Comments TSH (test code = 2821) 1.2 UIU/ML COMPREHENSIVE METABOLIC [id number] 00:00:00 Test Item Value Reference Range Interpretation Comments GLUCOSE (test code = 2217) 100 MG/DL BUN (test code = 2208) 10 MG/DL CREATININE (test code = 2214) 0.61 MG/DL eGFR AMER. (test code 134 ML/MIN/1.73 = 11395) eGFR NON- AMER. (test 116 ML/MIN/1.73 code = 44694) CALCULATED BUN/CREAT (test 16 RATIO code = 2235) SODIUM (test code = 2231) 145 MEQ/L POTASSIUM (test code = 2228) 4.6 MEQ/L CHLORIDE (test code = 2215) 105 MEQ/L CARBON DIOXIDE (test code = 19 MEQ/L 2206) CALCIUM (test code = 2209) [...] code = 2219) 16 U/L COMPREHENSIVE METABOLIC [id number] 00:00:00 Test Item Value Reference Range Interpretation Comments GLUCOSE (test code = 2217) 100 MG/DL BUN (test code = 2208) 10 MG/DL CREATININE (test code = 2214) 0.61 MG/DL eGFR AMER. (test code 134 ML/MIN/1.73 = 23439) eGFR NON- AMER. (test 116 ML/MIN/1.73 code = 17578) CALCULATED BUN/CREAT (test 16 RATIO code = 2235) SODIUM (test code = 2231) 145 MEQ/L POTASSIUM (test code = 2228) 4.6 MEQ/L CHLORIDE (test code = 2215) 105 MEQ/L CARBON DIOXIDE (test code = 19 MEQ/L 2206) CALCIUM (test code = 2209) [...] (test code = 2219) 16 U/L LIPID [id number] 00:00:00 Test Item Value Reference Range Interpretation Comments CHOLESTEROL (test code = 2210) 166 MG/DL TRIGLYCERIDES (test code = 2232) 72 MG/DL HDL CHOLESTEROL (test code = 2220) 47 MG/DL CALCULATED LDL CHOL (test code = 105 MG/DL 2237) RISK RATIO LDL/HDL (test code = 2.23 RATIO 2238) LIPID [id number] 00:00:00 Test Item Value Reference Range Interpretation Comments CHOLESTEROL (test code = 2210) 166 MG/DL TRIGLYCERIDES (test code = 2232) 72 MG/DL HDL CHOLESTEROL (test code = 2220) 47 MG/DL CALCULATED LDL CHOL (test code = 105 MG/DL 2237) RISK RATIO LDL/HDL (test code = 2.23 RATIO 2238) [id number] 00:00:00 Test Item Value Reference Range Interpretation Comments TSH (test code = 2821) 1.2 UIU/ML [id number] 00:00:00 Test Item Value Reference Range Interpretation Comments TSH (test code = 2821) 1.2 UIU/ML [id number] 00:00:00 Test Item Value Reference Range Interpretation Comments TSH (test code = 2821) 1.2 UIU/ML CBC W/AUTO [id number] 00:00:00 Test Item Value Reference Range Interpretation [...] code = 1015) 243 K/UL CBC W/AUTO [id number] 00:00:00 Test Item Value Reference Range Interpretation [...] code = 1015) 243 K/UL CBC W/AUTO [id number] 00:00:00 Test Item Value Reference Range Interpretation [...] (test code = 1015) 243 K/UL HEMOGLOBIN [id number] 00:00:00 Test Item Value Reference Range Interpretation Comments HEMOGLOBIN A1c (test code = 34010) 6.4 % HEMOGLOBIN [id number] 00:00:00 Test Item Value Reference Range Interpretation Comments HEMOGLOBIN A1c (test code = 66106) 6.4 % HEMOGLOBIN [id number] 00:00:00 Test Item Value Reference Range Interpretation Comments HEMOGLOBIN A1c (test code = 67693) 6.4 % CBC W/AUTO [id number] 00:00:00 Test Item Value Reference Range Interpretation [...] code = 1015) 243 K/UL CBC W/AUTO [id number] 00:00:00 Test Item Value Reference Range Interpretation [...] code = 1015) 243 K/UL CBC W/AUTO [id number] 00:00:00 Test Item Value Reference Range Interpretation [...] (test code = 1015) 243 K/UL HEMOGLOBIN [id number] 00:00:00 Test Item Value Reference Range Interpretation Comments HEMOGLOBIN A1c (test code = 27405) 6.4 % HEMOGLOBIN [id number] 00:00:00 Test Item Value Reference Range Interpretation Comments HEMOGLOBIN A1c (test code = 49618) 6.4 % HEMOGLOBIN [id number] 00:00:00 Test Item Value Reference Range Interpretation Comments HEMOGLOBIN A1c (test code = 94071) 6.4 % CBC W/AUTO [id number] 00:00:00 Test Item Value Reference Range Interpretation [...] code = 1015) 243 K/UL CBC W/AUTO [id number] 00:00:00 Test Item Value Reference Range Interpretation [...] code = 1015) 243 K/UL CBC W/AUTO [id number] 00:00:00 Test Item Value Reference Range Interpretation [...] (test code = 1015) 243 K/UL HEMOGLOBIN [id number] 00:00:00 Test Item Value Reference Range Interpretation Comments HEMOGLOBIN A1c (test code = 71489) 6.4 % HEMOGLOBIN [id number] 00:00:00 Test Item Value Reference Range Interpretation Comments HEMOGLOBIN A1c (test code = 34507) 6.4 % HEMOGLOBIN [id number] 00:00:00 Test Item Value Reference Range Interpretation Comments HEMOGLOBIN A1c (test code = 44157) 6.4 % CBC W/AUTO [id number] 00:00:00 Test Item Value Reference Range Interpretation [...] code = 1015) 243 K/UL CBC W/AUTO [id number] 00:00:00 Test Item Value Reference Range Interpretation [...] code = 1015) 243 K/UL CBC W/AUTO [id number] 00:00:00 Test Item Value Reference Range Interpretation [...] (test code = 1015) 243 K/UL HEMOGLOBIN [id number] 00:00:00 Test Item Value Reference Range Interpretation Comments HEMOGLOBIN A1c (test code = 76146) 6.4 % HEMOGLOBIN [id number] 00:00:00 Test Item Value Reference Range Interpretation Comments HEMOGLOBIN A1c (test code = 66379) 6.4 % HEMOGLOBIN [id number] 00:00:00 Test Item Value Reference Range Interpretation Comments HEMOGLOBIN A1c (test code = 86295) 6.4 % CBC W/AUTO [id number] 00:00:00 Test Item Value Reference Range Interpretation [...] code = 1015) 243 K/UL CBC W/AUTO [id number] 00:00:00 Test Item Value Reference Range Interpretation [...] code = 1015) 243 K/UL CBC W/AUTO [id number] 00:00:00 Test Item Value Reference Range Interpretation [...] (test code = 1015) 243 K/UL HEMOGLOBIN [id number] 00:00:00 Test Item Value Reference Range Interpretation Comments HEMOGLOBIN A1c (test code = 28876) 6.4 % HEMOGLOBIN [id number] 00:00:00 Test Item Value Reference Range Interpretation Comments HEMOGLOBIN A1c (test code = 22433) 6.4 % HEMOGLOBIN [id number] 00:00:00 Test Item Value Reference Range Interpretation Comments HEMOGLOBIN A1c (test code = 98343) 6.4 % CBC W/AUTO [id number] 00:00:00 Test Item Value Reference Range Interpretation [...] code = 1015) 243 K/UL CBC W/AUTO [id number] 00:00:00 Test Item Value Reference Range Interpretation [...] code = 1015) 243 K/UL CBC W/AUTO [id number] 00:00:00 Test Item Value Reference Range Interpretation [...] (test code = 1015) 243 K/UL HEMOGLOBIN [id number] 00:00:00 Test Item Value Reference Range Interpretation Comments HEMOGLOBIN A1c (test code = 18380) 6.4 % HEMOGLOBIN [id number] 00:00:00 Test Item Value Reference Range Interpretation Comments HEMOGLOBIN A1c (test code = 96640) 6.4 % HEMOGLOBIN [id number] 00:00:00 Test Item Value Reference Range Interpretation Comments HEMOGLOBIN A1c (test code = 24775) 6.4 % CBC W/AUTO [id number] 00:00:00 Test Item Value Reference Range Interpretation [...] code = 1015) 243 K/UL CBC W/AUTO [id number] 00:00:00 Test Item Value Reference Range Interpretation [...] code = 1015) 243 K/UL CBC W/AUTO [id number] 00:00:00 Test Item Value Reference Range Interpretation [...] (test code = 1015) 243 K/UL HEMOGLOBIN [id number] 00:00:00 Test Item Value Reference Range Interpretation Comments HEMOGLOBIN A1c (test code = 92957) 6.4 % HEMOGLOBIN [id number] 00:00:00 Test Item Value Reference Range Interpretation Comments HEMOGLOBIN A1c (test code = 57770) 6.4 % HEMOGLOBIN [id number] 00:00:00 Test Item Value Reference Range Interpretation Comments HEMOGLOBIN A1c (test code = 41799) 6.4 % CBC W/AUTO [id number] 00:00:00 Test Item Value Reference Range Interpretation [...] code = 1015) 243 K/UL CBC W/AUTO [id number] 00:00:00 Test Item Value Reference Range Interpretation [...] (test code = 1015) 243 K/UL HEMOGLOBIN [id number] 00:00:00 Test Item Value Reference Range Interpretation Comments HEMOGLOBIN A1c (test code = 21249) 6.4 % HEMOGLOBIN [id number] 00:00:00 Test Item Value Reference Range Interpretation Comments HEMOGLOBIN A1c (test code = 58592) 6.4 % CBC W/AUTO [id number] 00:00:00 Test Item Value Reference Range Interpretation [...] code = 1015) 243 K/UL CBC W/AUTO [id number] 00:00:00 Test Item Value Reference Range Interpretation [...] code = 1015) 243 K/UL CBC W/AUTO [id number] 00:00:00 Test Item Value Reference Range Interpretation [...] (test code = 1015) 243 K/UL HEMOGLOBIN [id number] 00:00:00 Test Item Value Reference Range Interpretation Comments HEMOGLOBIN A1c (test code = 30154) 6.4 % HEMOGLOBIN [id number] 00:00:00 Test Item Value Reference Range Interpretation Comments HEMOGLOBIN A1c (test code = 12206) 6.4 % HEMOGLOBIN [id number] 00:00:00 Test Item Value Reference Range Interpretation Comments HEMOGLOBIN A1c (test code = 09067) 6.4 % CBC W/AUTO [id number] 00:00:00 Test Item Value Reference Range Interpretation [...] code = 1015) 243 K/UL CBC W/AUTO [id number] 00:00:00 Test Item Value Reference Range Interpretation [...] code = 1015) 243 K/UL CBC W/AUTO [id number] 00:00:00 Test Item Value Reference Range Interpretation [...] (test code = 1015) 243 K/UL HEMOGLOBIN [id number] 00:00:00 Test Item Value Reference Range Interpretation Comments HEMOGLOBIN A1c (test code = 73898) 6.4 % HEMOGLOBIN [id number] 00:00:00 Test Item Value Reference Range Interpretation Comments HEMOGLOBIN A1c (test code = 16123) 6.4 % HEMOGLOBIN [id number] 00:00:00 Test Item Value Reference Range Interpretation Comments HEMOGLOBIN A1c (test code = 26943) 6.4 % CBC W/AUTO [id number] 00:00:00 Test Item Value Reference Range Interpretation [...] code = 1015) 243 K/UL CBC W/AUTO [id number] 00:00:00 Test Item Value Reference Range Interpretation [...] code = 1015) 243 K/UL CBC W/AUTO [id number] 00:00:00 Test Item Value Reference Range Interpretation [...] (test code = 1015) 243 K/UL HEMOGLOBIN [id number] 00:00:00 Test Item Value Reference Range Interpretation Comments HEMOGLOBIN A1c (test code = 20952) 6.4 % HEMOGLOBIN [id number] 00:00:00 Test Item Value Reference Range Interpretation Comments HEMOGLOBIN A1c (test code = 68638) 6.4 % HEMOGLOBIN [id number] 00:00:00 Test Item Value Reference Range Interpretation Comments HEMOGLOBIN A1c (test code = 29127) 6.4 % CHLAMYDIA, AMPLIFIED, [id number] 00:00:00 Test Item Value Reference Range Interpretation Comments CHLAMYDIA, AMPLIFIED (test code = NEGATIVE 67435) CHLAMYDIA, AMPLIFIED, [id number] 00:00:00 Test Item Value Reference Range Interpretation Comments CHLAMYDIA, AMPLIFIED (test code = NEGATIVE 69834) GC, AMPLIFIED, [id number] 00:00:00 Test Item Value Reference Range Interpretation Comments GONORRHEA, AMPLIFIED (test code = NEGATIVE 70754) GC, AMPLIFIED, [id number] 00:00:00 Test Item Value Reference Range Interpretation Comments GONORRHEA, AMPLIFIED (test code = NEGATIVE 60479) HIV AB/AG COMBO RFLX [id number] 00:00:00 Test Item Value Reference Range Interpretation Comments HIV AB/AG COMBO RFLX CONF (test NON-REACTIVE code = 3514) HIV AB/AG COMBO RFLX [id number] 00:00:00 Test Item Value Reference Range Interpretation Comments HIV AB/AG COMBO RFLX CONF (test NON-REACTIVE code = 3514) [id number] 00:00:00 Test Item Value Reference Range Interpretation Comments RPR RESULT (test code = NON-REACTIVE 3501) RPR TITER (test code = 3500) NOT INDIC. TITER [id number] 00:00:00 Test Item Value Reference Range Interpretation Comments RPR RESULT (test code = NON-REACTIVE 3501) RPR TITER (test code = 3500) NOT INDIC. TITER [id number] 00:00:00 Test Item Value Reference Range Interpretation [...] INTERPRETATION HEPATITIS B: (NOTE) (test code = 76428) INTERPRETATION HEPATITIS C: (NOTE) (test code = 78156) HEPATITIS PROFILE (A,B,C)2015-06-24 00:00:00 Test Item Value [...] INTERPRETATION HEPATITIS B: (NOTE) (test code = 33393) INTERPRETATION HEPATITIS C: (NOTE) (test code = 96958) COMPREHENSIVE METABOLIC [id number] 00:00:00 Test Item Value Reference Range Interpretation Comments GLUCOSE (test code = 2217) 105 MG/DL BUN (test code = 2208) 11 MG/DL CREATININE (test code = 2214) 0.80 MG/DL eGFR AMER. (test code 109 ML/MIN/1.73 = 91077) eGFR NON- AMER. (test 94 ML/MIN/1.73 code = 50453) CALCULATED BUN/CREAT (test 14 RATIO code = [...] code = 2219) 14 U/L COMPREHENSIVE METABOLIC [id number] 00:00:00 Test Item Value Reference Range Interpretation Comments GLUCOSE (test code = 2217) 105 MG/DL BUN (test code = 2208) 11 MG/DL CREATININE (test code = 2214) 0.80 MG/DL eGFR AMER. (test code 109 ML/MIN/1.73 = 40814) eGFR NON- AMER. (test 94 ML/MIN/1.73 code = 68597) CALCULATED BUN/CREAT (test 14 RATIO code = [...] (test code = 2219) 14 U/L LIPID [id number] 00:00:00 Test Item Value Reference Range Interpretation Comments CHOLESTEROL (test code = 2210) 211 MG/DL TRIGLYCERIDES (test code = 2232) 209 MG/DL HDL CHOLESTEROL (test code = 2220) 38 MG/DL CALCULATED LDL CHOL (test code = 131 MG/DL 2237) RISK RATIO LDL/HDL (test code = 3.45 RATIO 2238) LIPID [id number] 00:00:00 Test Item Value Reference Range Interpretation Comments CHOLESTEROL (test code = 2210) 211 MG/DL TRIGLYCERIDES (test code = 2232) 209 MG/DL HDL CHOLESTEROL (test code = 2220) 38 MG/DL CALCULATED LDL CHOL (test code = 131 MG/DL 2237) RISK RATIO LDL/HDL (test code = 3.45 RATIO 2238) CBC W/AUTO [id number] 00:00:00 Test Item Value Reference Range Interpretation [...] code = 1015) 254 K/UL CBC W/AUTO [id number] 00:00:00 Test Item Value Reference Range Interpretation [...] code = 1015) 254 K/UL CBC W/AUTO [id number] 00:00:00 Test Item Value Reference Range Interpretation [...] (test code = 1015) 254 K/UL HEMOGLOBIN [id number] 00:00:00 Test Item Value Reference Range Interpretation Comments HEMOGLOBIN A1c (test code = 84426) 6.9 % HEMOGLOBIN [id number] 00:00:00 Test Item Value Reference Range Interpretation Comments HEMOGLOBIN A1c (test code = 22625) 6.9 % HEMOGLOBIN [id number] 00:00:00 Test Item Value Reference Range Interpretation Comments HEMOGLOBIN A1c (test code = 98440) 6.9 % [id number] 00:00:00 Test Item Value Reference Range Interpretation Comments TSH (test code = 2821) 0.5 UIU/ML [id number] 00:00:00 Test Item Value Reference Range Interpretation Comments TSH (test code = 2821) 0.5 UIU/ML [id number] 00:00:00 Test Item Value Reference Range Interpretation Comments TSH (test code = 2821) 0.5 UIU/ML HEPATITIS A IgM [REFLEX]2015-06-24 00:00:00 Test Item Value Reference Range Interpretation Comments HEPATITIS A IgM (test code = NON-REACTIVE 2728) CHLAMYDIA, AMPLIFIED, [id number] 00:00:00 Test Item Value Reference Range Interpretation Comments CHLAMYDIA, AMPLIFIED (test code = NEGATIVE 85662) CHLAMYDIA, AMPLIFIED, [id number] 00:00:00 Test Item Value Reference Range Interpretation Comments CHLAMYDIA, AMPLIFIED (test code = NEGATIVE 00536) GC, AMPLIFIED, [id number] 00:00:00 Test Item Value Reference Range Interpretation Comments GONORRHEA, AMPLIFIED (test code = NEGATIVE 79020) GC, AMPLIFIED, [id number] 00:00:00 Test Item Value Reference Range Interpretation Comments GONORRHEA, AMPLIFIED (test code = NEGATIVE 24441) HIV AB/AG COMBO RFLX [id number] 00:00:00 Test Item Value Reference Range Interpretation Comments HIV AB/AG COMBO RFLX CONF (test NON-REACTIVE code = 3514) HIV AB/AG COMBO RFLX [id number] 00:00:00 Test Item Value Reference Range Interpretation Comments HIV AB/AG COMBO RFLX CONF (test NON-REACTIVE code = 3514) [id number] 00:00:00 Test Item Value Reference Range Interpretation Comments RPR RESULT (test code = NON-REACTIVE 3501) RPR TITER (test code = 3500) NOT INDIC. TITER [id number] 00:00:00 Test Item Value Reference Range Interpretation Comments RPR RESULT (test code = NON-REACTIVE 3501) RPR TITER (test code = 3500) NOT INDIC. TITER [id number] 00:00:00 Test Item Value Reference Range Interpretation [...] INTERPRETATION HEPATITIS B: (NOTE) (test code = 73632) INTERPRETATION HEPATITIS C: (NOTE) (test code = 83528) HEPATITIS PROFILE (A,B,C)2015-06-24 00:00:00 Test Item Value [...] INTERPRETATION HEPATITIS B: (NOTE) (test code = 94092) INTERPRETATION HEPATITIS C: (NOTE) (test code = 64941) COMPREHENSIVE METABOLIC [id number] 00:00:00 Test Item Value Reference Range Interpretation Comments GLUCOSE (test code = 2217) 105 MG/DL BUN (test code = 2208) 11 MG/DL CREATININE (test code = 2214) 0.80 MG/DL eGFR AMER. (test code 109 ML/MIN/1.73 = 03778) eGFR NON- AMER. (test 94 ML/MIN/1.73 code = 47835) CALCULATED BUN/CREAT (test 14 RATIO code = [...] code = 2219) 14 U/L COMPREHENSIVE METABOLIC [id number] 00:00:00 Test Item Value Reference Range Interpretation Comments GLUCOSE (test code = 2217) 105 MG/DL BUN (test code = 2208) 11 MG/DL CREATININE (test code = 2214) 0.80 MG/DL eGFR AMER. (test code 109 ML/MIN/1.73 = 44308) eGFR NON- AMER. (test 94 ML/MIN/1.73 code = 44238) CALCULATED BUN/CREAT (test 14 RATIO code = [...] (test code = 2219) 14 U/L LIPID [id number] 00:00:00 Test Item Value Reference Range Interpretation Comments CHOLESTEROL (test code = 2210) 211 MG/DL TRIGLYCERIDES (test code = 2232) 209 MG/DL HDL CHOLESTEROL (test code = 2220) 38 MG/DL CALCULATED LDL CHOL (test code = 131 MG/DL 2236) RISK RATIO LDL/HDL (test code = 3.45 RATIO 2238) LIPID [id number] 00:00:00 Test Item Value Reference Range Interpretation Comments CHOLESTEROL (test code = 2210) 211 MG/DL TRIGLYCERIDES (test code = 2232) 209 MG/DL HDL CHOLESTEROL (test code = 2220) 38 MG/DL CALCULATED LDL CHOL (test code = 131 MG/DL 2236) RISK RATIO LDL/HDL (test code = 3.45 RATIO 8) CBC W/AUTO [id number] 00:00:00 Test Item Value Reference Range Interpretation [...] code = 1015) 254 K/UL CBC W/AUTO [id number] 00:00:00 Test Item Value Reference Range Interpretation [...] code = 1015) 254 K/UL CBC W/AUTO [id number] 00:00:00 Test Item Value Reference Range Interpretation [...] (test code = 1015) 254 K/UL HEMOGLOBIN [id number] 00:00:00 Test Item Value Reference Range Interpretation Comments HEMOGLOBIN A1c (test code = 82868) 6.9 % HEMOGLOBIN [id number] 00:00:00 Test Item Value Reference Range Interpretation Comments HEMOGLOBIN A1c (test code = 74258) 6.9 % HEMOGLOBIN [id number] 00:00:00 Test Item Value Reference Range Interpretation Comments HEMOGLOBIN A1c (test code = 32577) 6.9 % [id number] 00:00:00 Test Item Value Reference Range Interpretation Comments TSH (test code = 2821) 0.5 UIU/ML [id number] 00:00:00 Test Item Value Reference Range Interpretation Comments TSH (test code = 2821) 0.5 UIU/ML [id number] 00:00:00 Test Item Value Reference Range Interpretation Comments TSH (test code = 2821) 0.5 UIU/ML HEPATITIS A IgM [REFLEX]2015-06-24 00:00:00 Test Item Value Reference Range Interpretation Comments HEPATITIS A IgM (test code = NON-REACTIVE 9738) CHLAMYDIA, AMPLIFIED, [id number] 00:00:00 Test Item Value Reference Range Interpretation Comments CHLAMYDIA, AMPLIFIED (test code = NEGATIVE 46971) CHLAMYDIA, AMPLIFIED, [id number] 00:00:00 Test Item Value Reference Range Interpretation Comments CHLAMYDIA, AMPLIFIED (test code = NEGATIVE 75603) GC, AMPLIFIED, [id number] 00:00:00 Test Item Value Reference Range Interpretation Comments GONORRHEA, AMPLIFIED (test code = NEGATIVE 06961) GC, AMPLIFIED, [id number] 00:00:00 Test Item Value Reference Range Interpretation Comments GONORRHEA, AMPLIFIED (test code = NEGATIVE 79550) HIV AB/AG COMBO RFLX [id number] 00:00:00 Test Item Value Reference Range Interpretation Comments HIV AB/AG COMBO RFLX CONF (test NON-REACTIVE code = 3514) HIV AB/AG COMBO RFLX [id number] 00:00:00 Test Item Value Reference Range Interpretation Comments HIV AB/AG COMBO RFLX CONF (test NON-REACTIVE code = 3514) [id number] 00:00:00 Test Item Value Reference Range Interpretation Comments RPR RESULT (test code = NON-REACTIVE 3501) RPR TITER (test code = 3500) NOT INDIC. TITER [id number] 00:00:00 Test Item Value Reference Range Interpretation Comments RPR RESULT (test code = NON-REACTIVE 3501) RPR TITER (test code = 3500) NOT INDIC. TITER [id number] 00:00:00 Test Item Value Reference Range Interpretation [...] INTERPRETATION HEPATITIS B: (NOTE) (test code = 11270) INTERPRETATION HEPATITIS C: (NOTE) (test code = 17431) HEPATITIS PROFILE (A,B,C)2015-06-24 00:00:00 Test Item Value [...] INTERPRETATION HEPATITIS B: (NOTE) (test code = 38495) INTERPRETATION HEPATITIS C: (NOTE) (test code = 25667) COMPREHENSIVE METABOLIC [id number] 00:00:00 Test Item Value Reference Range Interpretation Comments GLUCOSE (test code = 2217) 105 MG/DL BUN (test code = 2208) 11 MG/DL CREATININE (test code = 2214) 0.80 MG/DL eGFR AMER. (test code 109 ML/MIN/1.73 = 84661) eGFR NON- AMER. (test 94 ML/MIN/1.73 code = 53063) CALCULATED BUN/CREAT (test 14 RATIO code = [...] code = 2219) 14 U/L COMPREHENSIVE METABOLIC [id number] 00:00:00 Test Item Value Reference Range Interpretation Comments GLUCOSE (test code = 2217) 105 MG/DL BUN (test code = 2208) 11 MG/DL CREATININE (test code = 2214) 0.80 MG/DL eGFR AMER. (test code 109 ML/MIN/1.73 = 54502) eGFR NON- AMER. (test 94 ML/MIN/1.73 code = 53918) CALCULATED BUN/CREAT (test 14 RATIO code = [...] BILIRUBIN, TOTAL (test code = 0.5 MG/DL 7) ALKALINE PHOSPHATASE (test 36 U/L code = 2204) SGOT (AST) (test code = 2218) 14 U/L SGPT (ALT) (test code = 2219) 14 U/L LIPID [id number] 00:00:00 Test Item Value Reference Range Interpretation Comments CHOLESTEROL (test code = 2210) 211 MG/DL TRIGLYCERIDES (test code = 2232) 209 MG/DL HDL CHOLESTEROL (test code = 2220) 38 MG/DL CALCULATED LDL CHOL (test code = 131 MG/DL 2237) RISK RATIO LDL/HDL (test code = 3.45 RATIO 2238) LIPID [id number] 00:00:00 Test Item Value Reference Range Interpretation Comments CHOLESTEROL (test code = 2210) 211 MG/DL TRIGLYCERIDES (test code = 2232) 209 MG/DL HDL CHOLESTEROL (test code = 2220) 38 MG/DL CALCULATED LDL CHOL (test code = 131 MG/DL 2237) RISK RATIO LDL/HDL (test code = 3.45 RATIO 2238) CBC W/AUTO [id number] 00:00:00 Test Item Value Reference Range Interpretation [...] code = 1015) 254 K/UL CBC W/AUTO [id number] 00:00:00 Test Item Value Reference Range Interpretation [...] code = 1015) 254 K/UL CBC W/AUTO [id number] 00:00:00 Test Item Value Reference Range Interpretation [...] (test code = 1015) 254 K/UL HEMOGLOBIN [id number] 00:00:00 Test Item Value Reference Range Interpretation Comments HEMOGLOBIN A1c (test code = 71104) 6.9 % HEMOGLOBIN [id number] 00:00:00 Test Item Value Reference Range Interpretation Comments HEMOGLOBIN A1c (test code = 30064) 6.9 % HEMOGLOBIN [id number] 00:00:00 Test Item Value Reference Range Interpretation Comments HEMOGLOBIN A1c (test code = 59134) 6.9 % [id number] 00:00:00 Test Item Value Reference Range Interpretation Comments TSH (test code = 2821) 0.5 UIU/ML [id number] 00:00:00 Test Item Value Reference Range Interpretation Comments TSH (test code = 2821) 0.5 UIU/ML [id number] 00:00:00 Test Item Value Reference Range Interpretation Comments TSH (test code = 2821) 0.5 UIU/ML HEPATITIS A IgM [REFLEX]2015-06-24 00:00:00 Test Item Value Reference Range Interpretation Comments HEPATITIS A IgM (test code = NON-REACTIVE 2728) CHLAMYDIA, AMPLIFIED, [id number] 00:00:00 Test Item Value Reference Range Interpretation Comments CHLAMYDIA, AMPLIFIED (test code = NEGATIVE 98218) CHLAMYDIA, AMPLIFIED, [id number] 00:00:00 Test Item Value Reference Range Interpretation Comments CHLAMYDIA, AMPLIFIED (test code = NEGATIVE 83291) GC, AMPLIFIED, [id number] 00:00:00 Test Item Value Reference Range Interpretation Comments GONORRHEA, AMPLIFIED (test code = NEGATIVE 31481) GC, AMPLIFIED, [id number] 00:00:00 Test Item Value Reference Range Interpretation Comments GONORRHEA, AMPLIFIED (test code = NEGATIVE 18811) HIV AB/AG COMBO RFLX [id number] 00:00:00 Test Item Value Reference Range Interpretation Comments HIV AB/AG COMBO RFLX CONF (test NON-REACTIVE code = 3514) HIV AB/AG COMBO RFLX [id number] 00:00:00 Test Item Value Reference Range Interpretation Comments HIV AB/AG COMBO RFLX CONF (test NON-REACTIVE code = 3514) [id number] 00:00:00 Test Item Value Reference Range Interpretation Comments RPR RESULT (test code = NON-REACTIVE 3501) RPR TITER (test code = 3500) NOT INDIC. TITER [id number] 00:00:00 Test Item Value Reference Range Interpretation Comments RPR RESULT (test code = NON-REACTIVE 3501) RPR TITER (test code = 3500) NOT INDIC. TITER [id number] 00:00:00 Test Item Value Reference Range Interpretation [...] INTERPRETATION HEPATITIS B: (NOTE) (test code = 74240) INTERPRETATION HEPATITIS C: (NOTE) (test code = 59364) HEPATITIS PROFILE (A,B,C)2015-06-24 00:00:00 Test Item Value [...] INTERPRETATION HEPATITIS B: (NOTE) (test code = 86285) INTERPRETATION HEPATITIS C: (NOTE) (test code = 35271) COMPREHENSIVE METABOLIC [id number] 00:00:00 Test Item Value Reference Range Interpretation Comments GLUCOSE (test code = 2217) 105 MG/DL BUN (test code = 2208) 11 MG/DL CREATININE (test code = 2214) 0.80 MG/DL eGFR AMER. (test code 109 ML/MIN/1.73 = 25684) eGFR NON- AMER. (test 94 ML/MIN/1.73 code = 73927) CALCULATED BUN/CREAT (test 14 RATIO code = [...] code = 2219) 14 U/L COMPREHENSIVE METABOLIC [id number] 00:00:00 Test Item Value Reference Range Interpretation Comments GLUCOSE (test code = 2217) 105 MG/DL BUN (test code = 2208) 11 MG/DL CREATININE (test code = 2214) 0.80 MG/DL eGFR AMER. (test code 109 ML/MIN/1.73 = 70308) eGFR NON- AMER. (test 94 ML/MIN/1.73 code = 38573) CALCULATED BUN/CREAT (test 14 RATIO code = [...] (test code = 2219) 14 U/L LIPID [id number] 00:00:00 Test Item Value Reference Range Interpretation Comments CHOLESTEROL (test code = 2210) 211 MG/DL TRIGLYCERIDES (test code = 2232) 209 MG/DL HDL CHOLESTEROL (test code = 2220) 38 MG/DL CALCULATED LDL CHOL (test code = 131 MG/DL 2236) RISK RATIO LDL/HDL (test code = 3.45 RATIO 2238) LIPID [id number] 00:00:00 Test Item Value Reference Range Interpretation Comments CHOLESTEROL (test code = 2210) 211 MG/DL TRIGLYCERIDES (test code = 2232) 209 MG/DL HDL CHOLESTEROL (test code = 2220) 38 MG/DL CALCULATED LDL CHOL (test code = 131 MG/DL 2236) RISK RATIO LDL/HDL (test code = 3.45 RATIO 2238) CBC W/AUTO [id number] 00:00:00 Test Item Value Reference Range Interpretation [...] code = 1015) 254 K/UL CBC W/AUTO [id number] 00:00:00 Test Item Value Reference Range Interpretation [...] code = 1015) 254 K/UL CBC W/AUTO [id number] 00:00:00 Test Item Value Reference Range Interpretation [...] (test code = 1015) 254 K/UL HEMOGLOBIN [id number] 00:00:00 Test Item Value Reference Range Interpretation Comments HEMOGLOBIN A1c (test code = 23983) 6.9 % HEMOGLOBIN [id number] 00:00:00 Test Item Value Reference Range Interpretation Comments HEMOGLOBIN A1c (test code = 35833) 6.9 % HEMOGLOBIN [id number] 00:00:00 Test Item Value Reference Range Interpretation Comments HEMOGLOBIN A1c (test code = 25526) 6.9 % [id number] 00:00:00 Test Item Value Reference Range Interpretation Comments TSH (test code = 2821) 0.5 UIU/ML [id number] 00:00:00 Test Item Value Reference Range Interpretation Comments TSH (test code = 2821) 0.5 UIU/ML [id number] 00:00:00 Test Item Value Reference Range Interpretation Comments TSH (test code = 2821) 0.5 UIU/ML HEPATITIS A IgM [REFLEX]2015-06-24 00:00:00 Test Item Value Reference Range Interpretation Comments HEPATITIS A IgM (test code = NON-REACTIVE 2728) CHLAMYDIA, AMPLIFIED, [id number] 00:00:00 Test Item Value Reference Range Interpretation Comments CHLAMYDIA, AMPLIFIED (test code = NEGATIVE 96232) CHLAMYDIA, AMPLIFIED, [id number] 00:00:00 Test Item Value Reference Range Interpretation Comments CHLAMYDIA, AMPLIFIED (test code = NEGATIVE 22441) GC, AMPLIFIED, [id number] 00:00:00 Test Item Value Reference Range Interpretation Comments GONORRHEA, AMPLIFIED (test code = NEGATIVE 73436) GC, AMPLIFIED, [id number] 00:00:00 Test Item Value Reference Range Interpretation Comments GONORRHEA, AMPLIFIED (test code = NEGATIVE 26443) HIV AB/AG COMBO RFLX [id number] 00:00:00 Test Item Value Reference Range Interpretation Comments HIV AB/AG COMBO RFLX CONF (test NON-REACTIVE code = 3514) HIV AB/AG COMBO RFLX [id number] 00:00:00 Test Item Value Reference Range Interpretation Comments HIV AB/AG COMBO RFLX CONF (test NON-REACTIVE code = 3514) [id number] 00:00:00 Test Item Value Reference Range Interpretation Comments RPR RESULT (test code = NON-REACTIVE 3501) RPR TITER (test code = 3500) NOT INDIC. TITER [id number] 00:00:00 Test Item Value Reference Range Interpretation Comments RPR RESULT (test code = NON-REACTIVE 3501) RPR TITER (test code = 3500) NOT INDIC. TITER [id number] 00:00:00 Test Item Value Reference Range Interpretation [...] INTERPRETATION HEPATITIS B: (NOTE) (test code = 46568) INTERPRETATION HEPATITIS C: (NOTE) (test code = 56211) HEPATITIS PROFILE (A,B,C)2015-06-24 00:00:00 Test Item Value [...] INTERPRETATION HEPATITIS B: (NOTE) (test code = 92253) INTERPRETATION HEPATITIS C: (NOTE) (test code = 56969) COMPREHENSIVE METABOLIC [id number] 00:00:00 Test Item Value Reference Range Interpretation Comments GLUCOSE (test code = 2217) 105 MG/DL BUN (test code = 2208) 11 MG/DL CREATININE (test code = 2214) 0.80 MG/DL eGFR AMER. (test code 109 ML/MIN/1.73 = 73806) eGFR NON- AMER. (test 94 ML/MIN/1.73 code = 60575) CALCULATED BUN/CREAT (test 14 RATIO code = [...] code = 2219) 14 U/L COMPREHENSIVE METABOLIC [id number] 00:00:00 Test Item Value Reference Range Interpretation Comments GLUCOSE (test code = 2217) 105 MG/DL BUN (test code = 2208) 11 MG/DL CREATININE (test code = 2214) 0.80 MG/DL eGFR AMER. (test code 109 ML/MIN/1.73 = 70871) eGFR NON- AMER. (test 94 ML/MIN/1.73 code = 11280) CALCULATED BUN/CREAT (test 14 RATIO code = [...] (test code = 2219) 14 U/L LIPID [id number] 00:00:00 Test Item Value Reference Range Interpretation Comments CHOLESTEROL (test code = 2210) 211 MG/DL TRIGLYCERIDES (test code = 2232) 209 MG/DL HDL CHOLESTEROL (test code = 2220) 38 MG/DL CALCULATED LDL CHOL (test code = 131 MG/DL 2237) RISK RATIO LDL/HDL (test code = 3.45 RATIO 2238) LIPID [id number] 00:00:00 Test Item Value Reference Range Interpretation Comments CHOLESTEROL (test code = 2210) 211 MG/DL TRIGLYCERIDES (test code = 2232) 209 MG/DL HDL CHOLESTEROL (test code = 2220) 38 MG/DL CALCULATED LDL CHOL (test code = 131 MG/DL 2237) RISK RATIO LDL/HDL (test code = 3.45 RATIO 2238) CBC W/AUTO [id number] 00:00:00 Test Item Value Reference Range Interpretation [...] code = 1015) 254 K/UL CBC W/AUTO [id number] 00:00:00 Test Item Value Reference Range Interpretation [...] code = 1015) 254 K/UL CBC W/AUTO [id number] 00:00:00 Test Item Value Reference Range Interpretation [...] (test code = 1015) 254 K/UL HEMOGLOBIN [id number] 00:00:00 Test Item Value Reference Range Interpretation Comments HEMOGLOBIN A1c (test code = 11250) 6.9 % HEMOGLOBIN [id number] 00:00:00 Test Item Value Reference Range Interpretation Comments HEMOGLOBIN A1c (test code = 04583) 6.9 % HEMOGLOBIN [id number] 00:00:00 Test Item Value Reference Range Interpretation Comments HEMOGLOBIN A1c (test code = 37190) 6.9 % [id number] 00:00:00 Test Item Value Reference Range Interpretation Comments TSH (test code = 2821) 0.5 UIU/ML [id number] 00:00:00 Test Item Value Reference Range Interpretation Comments TSH (test code = 2821) 0.5 UIU/ML [id number] 00:00:00 Test Item Value Reference Range Interpretation Comments TSH (test code = 2821) 0.5 UIU/ML HEPATITIS A IgM [REFLEX]2015-06-24 00:00:00 Test Item Value Reference Range Interpretation Comments HEPATITIS A IgM (test code = NON-REACTIVE 2728) CHLAMYDIA, AMPLIFIED, [id number] 00:00:00 Test Item Value Reference Range Interpretation Comments CHLAMYDIA, AMPLIFIED (test code = NEGATIVE 82871) CHLAMYDIA, AMPLIFIED, [id number] 00:00:00 Test Item Value Reference Range Interpretation Comments CHLAMYDIA, AMPLIFIED (test code = NEGATIVE 95746) GC, AMPLIFIED, [id number] 00:00:00 Test Item Value Reference Range Interpretation Comments GONORRHEA, AMPLIFIED (test code = NEGATIVE 25788) GC, AMPLIFIED, [id number] 00:00:00 Test Item Value Reference Range Interpretation Comments GONORRHEA, AMPLIFIED (test code = NEGATIVE 76926) HIV AB/AG COMBO RFLX [id number] 00:00:00 Test Item Value Reference Range Interpretation Comments HIV AB/AG COMBO RFLX CONF (test NON-REACTIVE code = 3514) HIV AB/AG COMBO RFLX [id number] 00:00:00 Test Item Value Reference Range Interpretation Comments HIV AB/AG COMBO RFLX CONF (test NON-REACTIVE code = 3514) [id number] 00:00:00 Test Item Value Reference Range Interpretation Comments RPR RESULT (test code = NON-REACTIVE 3501) RPR TITER (test code = 3500) NOT INDIC. TITER [id number] 00:00:00 Test Item Value Reference Range Interpretation Comments RPR RESULT (test code = NON-REACTIVE 3501) RPR TITER (test code = 3500) NOT INDIC. TITER [id number] 00:00:00 Test Item Value Reference Range Interpretation Comments RPR RESULT (test code = NON-REACTIVE 3501) RPR TITER (test code = 3500) NOT INDIC. TITER HEPATITIS PROFILE (A,B,C)2015-06-24 00:00:00 Test Item Value Reference Range Interpretation Comments HEPATITIS A TOTAL AB (test code REACTIVE = 2725) HEPATITIS B SURF AG (test code = NON-REACTIVE 9) HEP B CORE TOTAL AB (test code = NON-REACTIVE 9) HEPATITIS B SURFACE AB (test NON-REACTIVE code = 2737) HEPATITIS C ANTIBODY (test code NON-REACTIVE = 4675) INTERPRETATION HEPATITIS A: (NOTE) (test code = 2552) INTERPRETATION HEPATITIS B: (NOTE) (test code = 78523) INTERPRETATION HEPATITIS C: (NOTE) (test code = 04198) HEPATITIS PROFILE (A,B,C)2015-06-24 00:00:00 Test Item Value [...] INTERPRETATION HEPATITIS B: (NOTE) (test code = 27239) INTERPRETATION HEPATITIS C: (NOTE) (test code = 07659) COMPREHENSIVE METABOLIC [id number] 00:00:00 Test Item Value Reference Range Interpretation Comments GLUCOSE (test code = 2217) 105 MG/DL BUN (test code = 2208) 11 MG/DL CREATININE (test code = 2214) 0.80 MG/DL eGFR AMER. (test code 109 ML/MIN/1.73 = 12548) eGFR NON- AMER. (test 94 ML/MIN/1.73 code = 36859) CALCULATED BUN/CREAT (test 14 RATIO code = [...] code = 2219) 14 U/L COMPREHENSIVE METABOLIC [id number] 00:00:00 Test Item Value Reference Range Interpretation Comments GLUCOSE (test code = 2217) 105 MG/DL BUN (test code = 2208) 11 MG/DL CREATININE (test code = 2214) 0.80 MG/DL eGFR AMER. (test code 109 ML/MIN/1.73 = 14578) eGFR NON- AMER. (test 94 ML/MIN/1.73 code = 04088) CALCULATED BUN/CREAT (test 14 RATIO code = [...] (test code = 2219) 14 U/L LIPID [id number] 00:00:00 Test Item Value Reference Range Interpretation Comments CHOLESTEROL (test code = 2210) 211 MG/DL TRIGLYCERIDES (test code = 2232) 209 MG/DL HDL CHOLESTEROL (test code = 2220) 38 MG/DL CALCULATED LDL CHOL (test code = 131 MG/DL 2236) RISK RATIO LDL/HDL (test code = 3.45 RATIO 2238) LIPID [id number] 00:00:00 Test Item Value Reference Range Interpretation Comments CHOLESTEROL (test code = 2210) 211 MG/DL TRIGLYCERIDES (test code = 2232) 209 MG/DL HDL CHOLESTEROL (test code = 2220) 38 MG/DL CALCULATED LDL CHOL (test code = 131 MG/DL 7) RISK RATIO LDL/HDL (test code = 3.45 RATIO 2238) CBC W/AUTO [id number] 00:00:00 Test Item Value Reference Range Interpretation [...] code = 1015) 254 K/UL CBC W/AUTO [id number] 00:00:00 Test Item Value Reference Range Interpretation [...] code = 1015) 254 K/UL CBC W/AUTO [id number] 00:00:00 Test Item Value Reference Range Interpretation [...] (test code = 1015) 254 K/UL HEMOGLOBIN [id number] 00:00:00 Test Item Value Reference Range Interpretation Comments HEMOGLOBIN A1c (test code = 46630) 6.9 % HEMOGLOBIN [id number] 00:00:00 Test Item Value Reference Range Interpretation Comments HEMOGLOBIN A1c (test code = 13101) 6.9 % HEMOGLOBIN [id number] 00:00:00 Test Item Value Reference Range Interpretation Comments HEMOGLOBIN A1c (test code = 73973) 6.9 % [id number] 00:00:00 Test Item Value Reference Range Interpretation Comments TSH (test code = 2821) 0.5 UIU/ML [id number] 00:00:00 Test Item Value Reference Range Interpretation Comments TSH (test code = 2821) 0.5 UIU/ML [id number] 00:00:00 Test Item Value Reference Range Interpretation Comments TSH (test code = 2821) 0.5 UIU/ML HEPATITIS A IgM [REFLEX]2015-06-24 00:00:00 Test Item Value Reference Range Interpretation Comments HEPATITIS A IgM (test code = NON-REACTIVE 2728) CHLAMYDIA, AMPLIFIED, [id number] 00:00:00 Test Item Value Reference Range Interpretation Comments CHLAMYDIA, AMPLIFIED (test code = NEGATIVE 64272) CHLAMYDIA, AMPLIFIED, [id number] 00:00:00 Test Item Value Reference Range Interpretation Comments CHLAMYDIA, AMPLIFIED (test code = NEGATIVE 18681) GC, AMPLIFIED, [id number] 00:00:00 Test Item Value Reference Range Interpretation Comments GONORRHEA, AMPLIFIED (test code = NEGATIVE 79510) GC, AMPLIFIED, [id number] 00:00:00 Test Item Value Reference Range Interpretation Comments GONORRHEA, AMPLIFIED (test code = NEGATIVE 18061) HIV AB/AG COMBO RFLX [id number] 00:00:00 Test Item Value Reference Range Interpretation Comments HIV AB/AG COMBO RFLX CONF (test NON-REACTIVE code = 3514) HIV AB/AG COMBO RFLX [id number] 00:00:00 Test Item Value Reference Range Interpretation Comments HIV AB/AG COMBO RFLX CONF (test NON-REACTIVE code = 3514) [id number] 00:00:00 Test Item Value Reference Range Interpretation Comments RPR RESULT (test code = NON-REACTIVE 3501) RPR TITER (test code = 3500) NOT INDIC. TITER [id number] 00:00:00 Test Item Value Reference Range Interpretation Comments RPR RESULT (test code = NON-REACTIVE 3501) RPR TITER (test code = 3500) NOT INDIC. TITER [id number] 00:00:00 Test Item Value Reference Range Interpretation [...] INTERPRETATION HEPATITIS B: (NOTE) (test code = 54476) INTERPRETATION HEPATITIS C: (NOTE) (test code = 91099) HEPATITIS PROFILE (A,B,C)2015-06-24 00:00:00 Test Item Value [...] INTERPRETATION HEPATITIS B: (NOTE) (test code = 53458) INTERPRETATION HEPATITIS C: (NOTE) (test code = 97260) COMPREHENSIVE METABOLIC [id number] 00:00:00 Test Item Value Reference Range Interpretation Comments GLUCOSE (test code = 2217) 105 MG/DL BUN (test code = 2208) 11 MG/DL CREATININE (test code = 2214) 0.80 MG/DL eGFR AMER. (test code 109 ML/MIN/1.73 = 43756) eGFR NON- AMER. (test 94 ML/MIN/1.73 code = 51943) CALCULATED BUN/CREAT (test 14 RATIO code = [...] code = 2219) 14 U/L COMPREHENSIVE METABOLIC [id number] 00:00:00 Test Item Value Reference Range Interpretation Comments GLUCOSE (test code = 2217) 105 MG/DL BUN (test code = 2208) 11 MG/DL CREATININE (test code = 2214) 0.80 MG/DL eGFR AMER. (test code 109 ML/MIN/1.73 = 88726) eGFR NON- AMER. (test 94 ML/MIN/1.73 code = 91977) CALCULATED BUN/CREAT (test 14 RATIO code = [...] (test code = 2219) 14 U/L LIPID [id number] 00:00:00 Test Item Value Reference Range Interpretation Comments CHOLESTEROL (test code = 2210) 211 MG/DL TRIGLYCERIDES (test code = 2232) 209 MG/DL HDL CHOLESTEROL (test code = 2220) 38 MG/DL CALCULATED LDL CHOL (test code = 131 MG/DL 2237) RISK RATIO LDL/HDL (test code = 3.45 RATIO 2238) LIPID [id number] 00:00:00 Test Item Value Reference Range Interpretation Comments CHOLESTEROL (test code = 2210) 211 MG/DL TRIGLYCERIDES (test code = 2232) 209 MG/DL HDL CHOLESTEROL (test code = 2220) 38 MG/DL CALCULATED LDL CHOL (test code = 131 MG/DL 2237) RISK RATIO LDL/HDL (test code = 3.45 RATIO 2238) CBC W/AUTO [id number] 00:00:00 Test Item Value Reference Range Interpretation [...] code = 1015) 254 K/UL CBC W/AUTO [id number] 00:00:00 Test Item Value Reference Range Interpretation [...] code = 1015) 254 K/UL CBC W/AUTO [id number] 00:00:00 Test Item Value Reference Range Interpretation [...] (test code = 1015) 254 K/UL HEMOGLOBIN [id number] 00:00:00 Test Item Value Reference Range Interpretation Comments HEMOGLOBIN A1c (test code = 59506) 6.9 % HEMOGLOBIN [id number] 00:00:00 Test Item Value Reference Range Interpretation Comments HEMOGLOBIN A1c (test code = 72051) 6.9 % HEMOGLOBIN [id number] 00:00:00 Test Item Value Reference Range Interpretation Comments HEMOGLOBIN A1c (test code = 27674) 6.9 % [id number] 00:00:00 Test Item Value Reference Range Interpretation Comments TSH (test code = 2821) 0.5 UIU/ML [id number] 00:00:00 Test Item Value Reference Range Interpretation Comments TSH (test code = 2821) 0.5 UIU/ML [id number] 00:00:00 Test Item Value Reference Range Interpretation Comments TSH (test code = 2821) 0.5 UIU/ML HEPATITIS A IgM [REFLEX]2015-06-24 00:00:00 Test Item Value Reference Range Interpretation Comments HEPATITIS A IgM (test code = NON-REACTIVE 0611) CHLAMYDIA, AMPLIFIED, [id number] 00:00:00 Test Item Value Reference Range Interpretation Comments CHLAMYDIA, AMPLIFIED (test code = NEGATIVE 10542) GC, AMPLIFIED, [id number] 00:00:00 Test Item Value Reference Range Interpretation Comments GONORRHEA, AMPLIFIED (test code = NEGATIVE 19935) HIV AB/AG COMBO RFLX [id number] 00:00:00 Test Item Value Reference Range Interpretation Comments HIV AB/AG COMBO RFLX CONF (test NON-REACTIVE code = 3514) [id number] 00:00:00 Test Item Value Reference Range Interpretation Comments RPR RESULT (test code = NON-REACTIVE 3501) RPR TITER (test code = 3500) NOT INDIC. TITER CHLAMYDIA, AMPLIFIED, [id number] 00:00:00 Test Item Value Reference Range Interpretation Comments CHLAMYDIA, AMPLIFIED (test code = NEGATIVE 42324) [id number] 00:00:00 Test Item Value Reference Range Interpretation Comments RPR RESULT (test code = NON-REACTIVE 3501) RPR TITER (test code = 3500) NOT INDIC. TITER CHLAMYDIA, AMPLIFIED, [id number] 00:00:00 Test Item Value Reference Range Interpretation Comments CHLAMYDIA, AMPLIFIED (test code = NEGATIVE 49352) GC, AMPLIFIED, [id number] 00:00:00 Test Item Value Reference Range Interpretation Comments GONORRHEA, AMPLIFIED (test code = NEGATIVE 74677) GC, AMPLIFIED, [id number] 00:00:00 Test Item Value Reference Range Interpretation Comments GONORRHEA, AMPLIFIED (test code = NEGATIVE 71221) HIV AB/AG COMBO RFLX [id number] 00:00:00 Test Item Value Reference Range Interpretation Comments HIV AB/AG COMBO RFLX CONF (test NON-REACTIVE code = 3514) HIV AB/AG COMBO RFLX [id number] 00:00:00 Test Item Value Reference Range Interpretation Comments HIV AB/AG COMBO RFLX CONF (test NON-REACTIVE code = 3514) [id number] 00:00:00 Test Item Value Reference Range Interpretation Comments RPR RESULT (test code = NON-REACTIVE 3501) RPR TITER (test code = 3500) NOT INDIC. TITER [id number] 00:00:00 Test Item Value Reference Range Interpretation Comments RPR RESULT (test code = NON-REACTIVE 3501) RPR TITER (test code = 3500) NOT INDIC. TITER [id number] 00:00:00 Test Item Value Reference Range Interpretation [...] INTERPRETATION HEPATITIS B: (NOTE) (test code = 69772) INTERPRETATION HEPATITIS C: (NOTE) (test code = 28801) HEPATITIS PROFILE (A,B,C)2015-06-24 00:00:00 Test Item Value [...] INTERPRETATION HEPATITIS B: (NOTE) (test code = 69760) INTERPRETATION HEPATITIS C: (NOTE) (test code = 98826) HEPATITIS PROFILE (A,B,C)2015-06-24 00:00:00 Test Item Value [...] INTERPRETATION HEPATITIS B: (NOTE) (test code = 97814) INTERPRETATION HEPATITIS C: (NOTE) (test code = 97885) COMPREHENSIVE METABOLIC [id number] 00:00:00 Test Item Value Reference Range Interpretation Comments GLUCOSE (test code = 2217) 105 MG/DL BUN (test code = 2208) 11 MG/DL CREATININE (test code = 2214) 0.80 MG/DL eGFR AMER. (test code 109 ML/MIN/1.73 = 73817) eGFR NON- AMER. (test 94 ML/MIN/1.73 code = 24084) CALCULATED BUN/CREAT (test 14 RATIO code = [...] code = 2219) 14 U/L COMPREHENSIVE METABOLIC [id number] 00:00:00 Test Item Value Reference Range Interpretation Comments GLUCOSE (test code = 2217) 105 MG/DL BUN (test code = 2208) 11 MG/DL CREATININE (test code = 2214) 0.80 MG/DL eGFR AMER. (test code 109 ML/MIN/1.73 = 66829) eGFR NON- AMER. (test 94 ML/MIN/1.73 code = 61957) CALCULATED BUN/CREAT (test 14 RATIO code = [...] (test code = 2219) 14 U/L LIPID [id number] 00:00:00 Test Item Value Reference Range Interpretation Comments CHOLESTEROL (test code = 2210) 211 MG/DL TRIGLYCERIDES (test code = 2232) 209 MG/DL HDL CHOLESTEROL (test code = 2220) 38 MG/DL CALCULATED LDL CHOL (test code = 131 MG/DL 2237) RISK RATIO LDL/HDL (test code = 3.45 RATIO 2238) LIPID [id number] 00:00:00 Test Item Value Reference Range Interpretation Comments CHOLESTEROL (test code = 2210) 211 MG/DL TRIGLYCERIDES (test code = 2232) 209 MG/DL HDL CHOLESTEROL (test code = 2220) 38 MG/DL CALCULATED LDL CHOL (test code = 131 MG/DL 2237) RISK RATIO LDL/HDL (test code = 3.45 RATIO 2238) CBC W/AUTO [id number] 00:00:00 Test Item Value Reference Range Interpretation [...] code = 1015) 254 K/UL CBC W/AUTO [id number] 00:00:00 Test Item Value Reference Range Interpretation [...] code = 1015) 254 K/UL CBC W/AUTO [id number] 00:00:00 Test Item Value Reference Range Interpretation [...] (test code = 1015) 254 K/UL HEMOGLOBIN [id number] 00:00:00 Test Item Value Reference Range Interpretation Comments HEMOGLOBIN A1c (test code = 37665) 6.9 % HEMOGLOBIN [id number] 00:00:00 Test Item Value Reference Range Interpretation Comments HEMOGLOBIN A1c (test code = 77075) 6.9 % HEMOGLOBIN [id number] 00:00:00 Test Item Value Reference Range Interpretation Comments HEMOGLOBIN A1c (test code = 04838) 6.9 % [id number] 00:00:00 Test Item Value Reference Range Interpretation Comments TSH (test code = 2821) 0.5 UIU/ML [id number] 00:00:00 Test Item Value Reference Range Interpretation Comments TSH (test code = 2821) 0.5 UIU/ML [id number] 00:00:00 Test Item Value Reference Range Interpretation Comments TSH (test code = 2821) 0.5 UIU/ML HEPATITIS A IgM [REFLEX]2015-06-24 00:00:00 Test Item Value Reference Range Interpretation Comments HEPATITIS A IgM (test code = NON-REACTIVE 7349) COMPREHENSIVE METABOLIC [id number] 00:00:00 Test Item Value Reference Range Interpretation Comments GLUCOSE (test code = 2217) 105 MG/DL BUN (test code = 2208) 11 MG/DL CREATININE (test code = 2214) 0.80 MG/DL eGFR AMER. (test code 109 ML/MIN/1.73 = 51560) eGFR NON- AMER. (test 94 ML/MIN/1.73 code = 67909) CALCULATED BUN/CREAT (test 14 RATIO code = [...] (test code = 2219) 14 U/L LIPID [id number] 00:00:00 Test Item Value Reference Range Interpretation Comments CHOLESTEROL (test code = 2210) 211 MG/DL TRIGLYCERIDES (test code = 2232) 209 MG/DL HDL CHOLESTEROL (test code = 2220) 38 MG/DL CALCULATED LDL CHOL (test code = 131 MG/DL 2236) RISK RATIO LDL/HDL (test code = 3.45 RATIO 2238) CBC W/AUTO [id number] 00:00:00 Test Item Value Reference Range Interpretation [...] code = 1015) 254 K/UL CBC W/AUTO [id number] 00:00:00 Test Item Value Reference Range Interpretation [...] (test code = 1015) 254 K/UL HEMOGLOBIN [id number] 00:00:00 Test Item Value Reference Range Interpretation Comments HEMOGLOBIN A1c (test code = 34883) 6.9 % HEMOGLOBIN [id number] 00:00:00 Test Item Value Reference Range Interpretation Comments HEMOGLOBIN A1c (test code = 69934) 6.9 % [id number] 00:00:00 Test Item Value Reference Range Interpretation Comments TSH (test code = 2821) 0.5 UIU/ML [id number] 00:00:00 Test Item Value Reference Range Interpretation Comments TSH (test code = 2821) 0.5 UIU/ML HEPATITIS A IgM [REFLEX]2015-06-24 00:00:00 Test Item Value Reference Range Interpretation Comments HEPATITIS A IgM (test code = NON-REACTIVE 0186) CHLAMYDIA, AMPLIFIED, [id number] 00:00:00 Test Item Value Reference Range Interpretation Comments CHLAMYDIA, AMPLIFIED (test code = NEGATIVE 52820) CHLAMYDIA, AMPLIFIED, [id number] 00:00:00 Test Item Value Reference Range Interpretation Comments CHLAMYDIA, AMPLIFIED (test code = NEGATIVE 60678) GC, AMPLIFIED, [id number] 00:00:00 Test Item Value Reference Range Interpretation Comments GONORRHEA, AMPLIFIED (test code = NEGATIVE 21512) GC, AMPLIFIED, [id number] 00:00:00 Test Item Value Reference Range Interpretation Comments GONORRHEA, AMPLIFIED (test code = NEGATIVE 26257) HIV AB/AG COMBO RFLX [id number] 00:00:00 Test Item Value Reference Range Interpretation Comments HIV AB/AG COMBO RFLX CONF (test NON-REACTIVE code = 3514) HIV AB/AG COMBO RFLX [id number] 00:00:00 Test Item Value Reference Range Interpretation Comments HIV AB/AG COMBO RFLX CONF (test NON-REACTIVE code = 3514) [id number] 00:00:00 Test Item Value Reference Range Interpretation Comments RPR RESULT (test code = NON-REACTIVE 3501) RPR TITER (test code = 3500) NOT INDIC. TITER [id number] 00:00:00 Test Item Value Reference Range Interpretation Comments RPR RESULT (test code = NON-REACTIVE 3501) RPR TITER (test code = 3500) NOT INDIC. TITER [id number] 00:00:00 Test Item Value Reference Range Interpretation [...] INTERPRETATION HEPATITIS B: (NOTE) (test code = 29113) INTERPRETATION HEPATITIS C: (NOTE) (test code = 02870) HEPATITIS PROFILE (A,B,C)2015-06-24 00:00:00 Test Item Value [...] INTERPRETATION HEPATITIS B: (NOTE) (test code = 76121) INTERPRETATION HEPATITIS C: (NOTE) (test code = 86353) COMPREHENSIVE METABOLIC [id number] 00:00:00 Test Item Value Reference Range Interpretation Comments GLUCOSE (test code = 2217) 105 MG/DL BUN (test code = 2208) 11 MG/DL CREATININE (test code = 2214) 0.80 MG/DL eGFR AMER. (test code 109 ML/MIN/1.73 = 94184) eGFR NON- AMER. (test 94 ML/MIN/1.73 code = 19299) CALCULATED BUN/CREAT (test 14 RATIO code = [...] code = 2219) 14 U/L COMPREHENSIVE METABOLIC [id number] 00:00:00 Test Item Value Reference Range Interpretation Comments GLUCOSE (test code = 2217) 105 MG/DL BUN (test code = 2208) 11 MG/DL CREATININE (test code = 2214) 0.80 MG/DL eGFR AMER. (test code 109 ML/MIN/1.73 = 43567) eGFR NON- AMER. (test 94 ML/MIN/1.73 code = 71878) CALCULATED BUN/CREAT (test 14 RATIO code = [...] (test code = 2219) 14 U/L LIPID [id number] 00:00:00 Test Item Value Reference Range Interpretation Comments CHOLESTEROL (test code = 2210) 211 MG/DL TRIGLYCERIDES (test code = 2232) 209 MG/DL HDL CHOLESTEROL (test code = 2220) 38 MG/DL CALCULATED LDL CHOL (test code = 131 MG/DL 2237) RISK RATIO LDL/HDL (test code = 3.45 RATIO 2238) LIPID [id number] 00:00:00 Test Item Value Reference Range Interpretation Comments CHOLESTEROL (test code = 2210) 211 MG/DL TRIGLYCERIDES (test code = 2232) 209 MG/DL HDL CHOLESTEROL (test code = 2220) 38 MG/DL CALCULATED LDL CHOL (test code = 131 MG/DL 2237) RISK RATIO LDL/HDL (test code = 3.45 RATIO 2238) CBC W/AUTO [id number] 00:00:00 Test Item Value Reference Range Interpretation [...] code = 1015) 254 K/UL CBC W/AUTO [id number] 00:00:00 Test Item Value Reference Range Interpretation [...] code = 1015) 254 K/UL CBC W/AUTO [id number] 00:00:00 Test Item Value Reference Range Interpretation [...] (test code = 1015) 254 K/UL HEMOGLOBIN [id number] 00:00:00 Test Item Value Reference Range Interpretation Comments HEMOGLOBIN A1c (test code = 94972) 6.9 % HEMOGLOBIN [id number] 00:00:00 Test Item Value Reference Range Interpretation Comments HEMOGLOBIN A1c (test code = 29813) 6.9 % HEMOGLOBIN [id number] 00:00:00 Test Item Value Reference Range Interpretation Comments HEMOGLOBIN A1c (test code = 18336) 6.9 % [id number] 00:00:00 Test Item Value Reference Range Interpretation Comments TSH (test code = 2821) 0.5 UIU/ML [id number] 00:00:00 Test Item Value Reference Range Interpretation Comments TSH (test code = 2821) 0.5 UIU/ML [id number] 00:00:00 Test Item Value Reference Range Interpretation Comments TSH (test code = 2821) 0.5 UIU/ML HEPATITIS A IgM [REFLEX]2015-06-24 00:00:00 Test Item Value Reference Range Interpretation Comments HEPATITIS A IgM (test code = NON-REACTIVE 2728) CHLAMYDIA, AMPLIFIED, [id number] 00:00:00 Test Item Value Reference Range Interpretation Comments CHLAMYDIA, AMPLIFIED (test code = NEGATIVE 19240) CHLAMYDIA, AMPLIFIED, [id number] 00:00:00 Test Item Value Reference Range Interpretation Comments CHLAMYDIA, AMPLIFIED (test code = NEGATIVE 41860) GC, AMPLIFIED, [id number] 00:00:00 Test Item Value Reference Range Interpretation Comments GONORRHEA, AMPLIFIED (test code = NEGATIVE 73632) GC, AMPLIFIED, [id number] 00:00:00 Test Item Value Reference Range Interpretation Comments GONORRHEA, AMPLIFIED (test code = NEGATIVE 78708) HIV AB/AG COMBO RFLX [id number] 00:00:00 Test Item Value Reference Range Interpretation Comments HIV AB/AG COMBO RFLX CONF (test NON-REACTIVE code = 3514) HIV AB/AG COMBO RFLX [id number] 00:00:00 Test Item Value Reference Range Interpretation Comments HIV AB/AG COMBO RFLX CONF (test NON-REACTIVE code = 3514) [id number] 00:00:00 Test Item Value Reference Range Interpretation Comments RPR RESULT (test code = NON-REACTIVE 3501) RPR TITER (test code = 3500) NOT INDIC. TITER [id number] 00:00:00 Test Item Value Reference Range Interpretation Comments RPR RESULT (test code = NON-REACTIVE 3501) RPR TITER (test code = 3500) NOT INDIC. TITER [id number] 00:00:00 Test Item Value Reference Range Interpretation [...] INTERPRETATION HEPATITIS B: (NOTE) (test code = 91503) INTERPRETATION HEPATITIS C: (NOTE) (test code = 89584) HEPATITIS PROFILE (A,B,C)2015-06-24 00:00:00 Test Item Value [...] INTERPRETATION HEPATITIS B: (NOTE) (test code = 94668) INTERPRETATION HEPATITIS C: (NOTE) (test code = 03800) COMPREHENSIVE METABOLIC [id number] 00:00:00 Test Item Value Reference Range Interpretation Comments GLUCOSE (test code = 2217) 105 MG/DL BUN (test code = 2208) 11 MG/DL CREATININE (test code = 2214) 0.80 MG/DL eGFR AMER. (test code 109 ML/MIN/1.73 = 32706) eGFR NON- AMER. (test 94 ML/MIN/1.73 code = 05884) CALCULATED BUN/CREAT (test 14 RATIO code = [...] code = 2219) 14 U/L COMPREHENSIVE METABOLIC [id number] 00:00:00 Test Item Value Reference Range Interpretation Comments GLUCOSE (test code = 2217) 105 MG/DL BUN (test code = 2208) 11 MG/DL CREATININE (test code = 2214) 0.80 MG/DL eGFR AMER. (test code 109 ML/MIN/1.73 = 07442) eGFR NON- AMER. (test 94 ML/MIN/1.73 code = 80194) CALCULATED BUN/CREAT (test 14 RATIO code = [...] (test code = 2219) 14 U/L LIPID [id number] 00:00:00 Test Item Value Reference Range Interpretation Comments CHOLESTEROL (test code = 2210) 211 MG/DL TRIGLYCERIDES (test code = 2232) 209 MG/DL HDL CHOLESTEROL (test code = 2220) 38 MG/DL CALCULATED LDL CHOL (test code = 131 MG/DL 2237) RISK RATIO LDL/HDL (test code = 3.45 RATIO 2238) LIPID [id number] 00:00:00 Test Item Value Reference Range Interpretation Comments CHOLESTEROL (test code = 2210) 211 MG/DL TRIGLYCERIDES (test code = 2232) 209 MG/DL HDL CHOLESTEROL (test code = 2220) 38 MG/DL CALCULATED LDL CHOL (test code = 131 MG/DL 2237) RISK RATIO LDL/HDL (test code = 3.45 RATIO 2238) CBC W/AUTO [id number] 00:00:00 Test Item Value Reference Range Interpretation [...] code = 1015) 254 K/UL CBC W/AUTO [id number] 00:00:00 Test Item Value Reference Range Interpretation [...] code = 1015) 254 K/UL CBC W/AUTO [id number] 00:00:00 Test Item Value Reference Range Interpretation [...] (test code = 1015) 254 K/UL HEMOGLOBIN [id number] 00:00:00 Test Item Value Reference Range Interpretation Comments HEMOGLOBIN A1c (test code = 58047) 6.9 % HEMOGLOBIN [id number] 00:00:00 Test Item Value Reference Range Interpretation Comments HEMOGLOBIN A1c (test code = 89850) 6.9 % HEMOGLOBIN [id number] 00:00:00 Test Item Value Reference Range Interpretation Comments HEMOGLOBIN A1c (test code = 85868) 6.9 % [id number] 00:00:00 Test Item Value Reference Range Interpretation Comments TSH (test code = 2821) 0.5 UIU/ML [id number] 00:00:00 Test Item Value Reference Range Interpretation Comments TSH (test code = 2821) 0.5 UIU/ML [id number] 00:00:00 Test Item Value Reference Range Interpretation Comments TSH (test code = 2821) 0.5 UIU/ML HEPATITIS A IgM [REFLEX]2015-06-24 00:00:00 Test Item Value Reference Range Interpretation Comments HEPATITIS A IgM (test code = NON-REACTIVE 6964) COMPREHENSIVE METABOLIC [id number] 00:00:00 Test Item Value Reference Range Interpretation Comments GLUCOSE (test code = 2217) 113 MG/DL BUN (test code = 2208) 22 MG/DL CREATININE (test code = 2214) 0.9 MG/DL eGFR AMER. (test code 85 ML/MIN/1.73 = 77915) eGFR NON- AMER. (test 70 ML/MIN/1.73 code = 12759) CALCULATED BUN/CREAT (test 24 RATIO code = [...] code = 2219) 24 U/L COMPREHENSIVE METABOLIC [id number] 00:00:00 Test Item Value Reference Range Interpretation Comments GLUCOSE (test code = 2217) 113 MG/DL BUN (test code = 2208) 22 MG/DL CREATININE (test code = 2214) 0.9 MG/DL eGFR AMER. (test code 85 ML/MIN/1.73 = 23873) eGFR NON- AMER. (test 70 ML/MIN/1.73 code = 98818) CALCULATED BUN/CREAT (test 24 RATIO code = 2235) SODIUM (test code = 2231) 138 MEQ/L POTASSIUM (test code = 2228) 4.6 MEQ/L CHLORIDE (test code = 2215) 102 MEQ/L CARBON DIOXIDE (test code = 22 MEQ/L 220) CALCIUM (test code = 2209) 10.6 MG/DL [...] code = 2219) 24 U/L CBC W/AUTO [id number] 00:00:00 Test Item Value Reference Range Interpretation [...] code = 1015) 270 K/UL CBC W/AUTO [id number] 00:00:00 Test Item Value Reference Range Interpretation [...] code = 1015) 270 K/UL CBC W/AUTO [id number] 00:00:00 Test Item Value Reference Range Interpretation [...] (test code = 1015) 270 K/UL HEMOGLOBIN [id number] 00:00:00 Test Item Value Reference Range Interpretation Comments HEMOGLOBIN A1c (test code = 85110) 7.3 % HEMOGLOBIN [id number] 00:00:00 Test Item Value Reference Range Interpretation Comments HEMOGLOBIN A1c (test code = 25834) 7.3 % HEMOGLOBIN [id number] 00:00:00 Test Item Value Reference Range Interpretation Comments HEMOGLOBIN A1c (test code = 76608) 7.3 % COMPREHENSIVE METABOLIC [id number] 00:00:00 Test Item Value Reference Range Interpretation Comments GLUCOSE (test code = 2217) 113 MG/DL BUN (test code = 2208) 22 MG/DL CREATININE (test code = 2214) 0.9 MG/DL eGFR AMER. (test code 85 ML/MIN/1.73 = 72915) eGFR NON- AMER. (test 70 ML/MIN/1.73 code = 68918) CALCULATED BUN/CREAT (test 24 RATIO code = [...] code = 2219) 24 U/L COMPREHENSIVE METABOLIC [id number] 00:00:00 Test Item Value Reference Range Interpretation Comments GLUCOSE (test code = 2217) 113 MG/DL BUN (test code = 2208) 22 MG/DL CREATININE (test code = 2214) 0.9 MG/DL eGFR AMER. (test code 85 ML/MIN/1.73 = 36098) eGFR NON- AMER. (test 70 ML/MIN/1.73 code = 77536) CALCULATED BUN/CREAT (test 24 RATIO code = [...] code = 2219) 24 U/L CBC W/AUTO [id number] 00:00:00 Test Item Value Reference Range Interpretation [...] code = 1015) 270 K/UL CBC W/AUTO [id number] 00:00:00 Test Item Value Reference Range Interpretation [...] code = 1015) 270 K/UL CBC W/AUTO [id number] 00:00:00 Test Item Value Reference Range Interpretation [...] (test code = 1015) 270 K/UL HEMOGLOBIN [id number] 00:00:00 Test Item Value Reference Range Interpretation Comments HEMOGLOBIN A1c (test code = 69155) 7.3 % HEMOGLOBIN [id number] 00:00:00 Test Item Value Reference Range Interpretation Comments HEMOGLOBIN A1c (test code = 23707) 7.3 % HEMOGLOBIN [id number] 00:00:00 Test Item Value Reference Range Interpretation Comments HEMOGLOBIN A1c (test code = 33190) 7.3 % COMPREHENSIVE METABOLIC [id number] 00:00:00 Test Item Value Reference Range Interpretation Comments GLUCOSE (test code = 2217) 113 MG/DL BUN (test code = 2208) 22 MG/DL CREATININE (test code = 2214) 0.9 MG/DL eGFR AMER. (test code 85 ML/MIN/1.73 = 67426) eGFR NON- AMER. (test 70 ML/MIN/1.73 code = 61682) CALCULATED BUN/CREAT (test 24 RATIO code = [...] BILIRUBIN, TOTAL (test code = 0.4 MG/DL 220) ALKALINE PHOSPHATASE (test 50 U/L code = 2204) SGOT (AST) (test code = 2218) 21 U/L SGPT (ALT) (test code = 2219) 24 U/L COMPREHENSIVE METABOLIC [id number] 00:00:00 Test Item Value Reference Range Interpretation Comments GLUCOSE (test code = 2217) 113 MG/DL BUN (test code = 2208) 22 MG/DL CREATININE (test code = 2214) 0.9 MG/DL eGFR AMER. (test code 85 ML/MIN/1.73 = 56254) eGFR NON- AMER. (test 70 ML/MIN/1.73 code = 85613) CALCULATED BUN/CREAT (test 24 RATIO code = [...] = 0.4 MG/DL 2207) ALKALINE PHOSPHATASE (test 50 U/L code = 2204) SGOT (AST) (test code = 2218) 21 U/L SGPT (ALT) (test code = 2219) 24 U/L CBC W/AUTO [id number] 00:00:00 Test Item Value Reference Range Interpretation [...] code = 1015) 270 K/UL CBC W/AUTO [id number] 00:00:00 Test Item Value Reference Range Interpretation [...] code = 1015) 270 K/UL CBC W/AUTO [id number] 00:00:00 Test Item Value Reference Range Interpretation [...] (test code = 1015) 270 K/UL HEMOGLOBIN [id number] 00:00:00 Test Item Value Reference Range Interpretation Comments HEMOGLOBIN A1c (test code = 67032) 7.3 % HEMOGLOBIN [id number] 00:00:00 Test Item Value Reference Range Interpretation Comments HEMOGLOBIN A1c (test code = 69514) 7.3 % HEMOGLOBIN [id number] 00:00:00 Test Item Value Reference Range Interpretation Comments HEMOGLOBIN A1c (test code = 55045) 7.3 % COMPREHENSIVE METABOLIC [id number] 00:00:00 Test Item Value Reference Range Interpretation Comments GLUCOSE (test code = 2217) 113 MG/DL BUN (test code = 2208) 22 MG/DL CREATININE (test code = 2214) 0.9 MG/DL eGFR AMER. (test code 85 ML/MIN/1.73 = 78656) eGFR NON- AMER. (test 70 ML/MIN/1.73 code = 80769) CALCULATED BUN/CREAT (test 24 RATIO code = [...] = 0.4 MG/DL 2207) ALKALINE PHOSPHATASE (test 50 U/L code = 2204) SGOT (AST) (test code = 2218) 21 U/L SGPT (ALT) (test code = 2219) 24 U/L COMPREHENSIVE METABOLIC [id number] 00:00:00 Test Item Value Reference Range Interpretation Comments GLUCOSE (test code = 2217) 113 MG/DL BUN (test code = 2208) 22 MG/DL CREATININE (test code = 2214) 0.9 MG/DL eGFR AMER. (test code 85 ML/MIN/1.73 = 77081) eGFR NON- AMER. (test 70 ML/MIN/1.73 code = 69224) CALCULATED BUN/CREAT (test 24 RATIO code = [...] code = 2219) 24 U/L CBC W/AUTO [id number] 00:00:00 Test Item Value Reference Range Interpretation [...] code = 1015) 270 K/UL CBC W/AUTO [id number] 00:00:00 Test Item Value Reference Range Interpretation [...] code = 1015) 270 K/UL CBC W/AUTO [id number] 00:00:00 Test Item Value Reference Range Interpretation [...] (test code = 1015) 270 K/UL HEMOGLOBIN [id number] 00:00:00 Test Item Value Reference Range Interpretation Comments HEMOGLOBIN A1c (test code = 22364) 7.3 % HEMOGLOBIN [id number] 00:00:00 Test Item Value Reference Range Interpretation Comments HEMOGLOBIN A1c (test code = 81395) 7.3 % HEMOGLOBIN [id number] 00:00:00 Test Item Value Reference Range Interpretation Comments HEMOGLOBIN A1c (test code = 65477) 7.3 % COMPREHENSIVE METABOLIC [id number] 00:00:00 Test Item Value Reference Range Interpretation Comments GLUCOSE (test code = 2217) 113 MG/DL BUN (test code = 2208) 22 MG/DL CREATININE (test code = 2214) 0.9 MG/DL eGFR AMER. (test code 85 ML/MIN/1.73 = 12216) eGFR NON- AMER. (test 70 ML/MIN/1.73 code = 97245) CALCULATED BUN/CREAT (test 24 RATIO code = [...] code = 2219) 24 U/L COMPREHENSIVE METABOLIC [id number] 00:00:00 Test Item Value Reference Range Interpretation Comments GLUCOSE (test code = 2217) 113 MG/DL BUN (test code = 2208) 22 MG/DL CREATININE (test code = 2214) 0.9 MG/DL eGFR AMER. (test code 85 ML/MIN/1.73 = 27674) eGFR NON- AMER. (test 70 ML/MIN/1.73 code = 32127) CALCULATED BUN/CREAT (test 24 RATIO code = 2235) SODIUM (test code = 2231) 138 MEQ/L POTASSIUM (test code = 2228) 4.6 MEQ/L CHLORIDE (test code = 2215) 102 MEQ/L CARBON DIOXIDE (test code = 22 MEQ/L 2206) CALCIUM (test code = 2209) 10.6 MG/DL PROTEIN, TOTAL (test code = 8.1 G/DL 2229) ALBUMIN (test code = 2201) 4.7 G/DL CALCULATED GLOBULIN (test code 3.4 G/DL = 2240) CALCULATED A/G RATIO (test 1.4 RATIO code = 2234) BILIRUBIN, TOTAL (test code = 0.4 MG/DL 2207) ALKALINE PHOSPHATASE (test 50 U/L code = 2204) SGOT (AST) (test code = 2218) 21 U/L SGPT (ALT) (test code = 2219) 24 U/L CBC W/AUTO [id number] 00:00:00 Test Item Value Reference Range Interpretation [...] code = 1015) 270 K/UL CBC W/AUTO [id number] 00:00:00 Test Item Value Reference Range Interpretation [...] code = 1015) 270 K/UL CBC W/AUTO [id number] 00:00:00 Test Item Value Reference Range Interpretation [...] (test code = 1015) 270 K/UL HEMOGLOBIN [id number] 00:00:00 Test Item Value Reference Range Interpretation Comments HEMOGLOBIN A1c (test code = 12485) 7.3 % HEMOGLOBIN [id number] 00:00:00 Test Item Value Reference Range Interpretation Comments HEMOGLOBIN A1c (test code = 83667) 7.3 % HEMOGLOBIN [id number] 00:00:00 Test Item Value Reference Range Interpretation Comments HEMOGLOBIN A1c (test code = 71986) 7.3 % COMPREHENSIVE METABOLIC [id number] 00:00:00 Test Item Value Reference Range Interpretation Comments GLUCOSE (test code = 2217) 113 MG/DL BUN (test code = 2208) 22 MG/DL CREATININE (test code = 2214) 0.9 MG/DL eGFR AMER. (test code 85 ML/MIN/1.73 = 20071) eGFR NON- AMER. (test 70 ML/MIN/1.73 code = 11944) CALCULATED BUN/CREAT (test 24 RATIO code = [...] code = 2219) 24 U/L COMPREHENSIVE METABOLIC [id number] 00:00:00 Test Item Value Reference Range Interpretation Comments GLUCOSE (test code = 2217) 113 MG/DL BUN (test code = 2208) 22 MG/DL CREATININE (test code = 2214) 0.9 MG/DL eGFR AMER. (test code 85 ML/MIN/1.73 = 24314) eGFR NON- AMER. (test 70 ML/MIN/1.73 code = 27701) CALCULATED BUN/CREAT (test 24 RATIO code = [...] code = 2219) 24 U/L CBC W/AUTO [id number] 00:00:00 Test Item Value Reference Range Interpretation [...] code = 1015) 270 K/UL CBC W/AUTO [id number] 00:00:00 Test Item Value Reference Range Interpretation [...] code = 1015) 270 K/UL CBC W/AUTO [id number] 00:00:00 Test Item Value Reference Range Interpretation [...] (test code = 1015) 270 K/UL HEMOGLOBIN [id number] 00:00:00 Test Item Value Reference Range Interpretation Comments HEMOGLOBIN A1c (test code = 73123) 7.3 % HEMOGLOBIN [id number] 00:00:00 Test Item Value Reference Range Interpretation Comments HEMOGLOBIN A1c (test code = 91161) 7.3 % HEMOGLOBIN [id number] 00:00:00 Test Item Value Reference Range Interpretation Comments HEMOGLOBIN A1c (test code = 16349) 7.3 % COMPREHENSIVE METABOLIC [id number] 00:00:00 Test Item Value Reference Range Interpretation Comments GLUCOSE (test code = 2217) 113 MG/DL BUN (test code = 2208) 22 MG/DL CREATININE (test code = 2214) 0.9 MG/DL eGFR AMER. (test code 85 ML/MIN/1.73 = 51126) eGFR NON- AMER. (test 70 ML/MIN/1.73 code = 92221) CALCULATED BUN/CREAT (test 24 RATIO code = [...] code = 2219) 24 U/L COMPREHENSIVE METABOLIC [id number] 00:00:00 Test Item Value Reference Range Interpretation Comments GLUCOSE (test code = 2217) 113 MG/DL BUN (test code = 2208) 22 MG/DL CREATININE (test code = 2214) 0.9 MG/DL eGFR AMER. (test code 85 ML/MIN/1.73 = 11224) eGFR NON- AMER. (test 70 ML/MIN/1.73 code = 60695) CALCULATED BUN/CREAT (test 24 RATIO code = [...] code = 2219) 24 U/L CBC W/AUTO [id number] 00:00:00 Test Item Value Reference Range Interpretation [...] code = 1015) 270 K/UL CBC W/AUTO [id number] 00:00:00 Test Item Value Reference Range Interpretation [...] code = 1015) 270 K/UL CBC W/AUTO [id number] 00:00:00 Test Item Value Reference Range Interpretation [...] (test code = 1015) 270 K/UL HEMOGLOBIN [id number] 00:00:00 Test Item Value Reference Range Interpretation Comments HEMOGLOBIN A1c (test code = 22759) 7.3 % HEMOGLOBIN [id number] 00:00:00 Test Item Value Reference Range Interpretation Comments HEMOGLOBIN A1c (test code = 75145) 7.3 % HEMOGLOBIN [id number] 00:00:00 Test Item Value Reference Range Interpretation Comments HEMOGLOBIN A1c (test code = 48676) 7.3 % COMPREHENSIVE METABOLIC [id number] 00:00:00 Test Item Value Reference Range Interpretation Comments GLUCOSE (test code = 2217) 113 MG/DL BUN (test code = 2208) 22 MG/DL CREATININE (test code = 2214) 0.9 MG/DL eGFR AMER. (test code 85 ML/MIN/1.73 = 11621) eGFR NON- AMER. (test 70 ML/MIN/1.73 code = 66941) CALCULATED BUN/CREAT (test 24 RATIO code = 2235) SODIUM (test code = 2231) 138 MEQ/L POTASSIUM (test code = 2228) 4.6 MEQ/L CHLORIDE (test code = 2215) 102 MEQ/L CARBON DIOXIDE (test code = 22 MEQ/L 2206) CALCIUM (test code = 2209) 10.6 MG/DL PROTEIN, TOTAL (test code = 8.1 G/DL 2229) ALBUMIN (test code = 2201) 4.7 G/DL CALCULATED GLOBULIN (test code 3.4 G/DL = 2240) CALCULATED A/G RATIO (test 1.4 RATIO code = 2234) BILIRUBIN, TOTAL (test code = 0.4 MG/DL 2207) ALKALINE PHOSPHATASE (test 50 U/L code = 2204) SGOT (AST) (test code = 2218) 21 U/L SGPT (ALT) (test code = 2219) 24 U/L CBC W/AUTO [id number] 00:00:00 Test Item Value Reference Range Interpretation [...] code = 1015) 270 K/UL CBC W/AUTO [id number] 00:00:00 Test Item Value Reference Range Interpretation [...] (test code = 1015) 270 K/UL HEMOGLOBIN [id number] 00:00:00 Test Item Value Reference Range Interpretation Comments HEMOGLOBIN A1c (test code = 44587) 7.3 % HEMOGLOBIN [id number] 00:00:00 Test Item Value Reference Range Interpretation Comments HEMOGLOBIN A1c (test code = 89659) 7.3 % COMPREHENSIVE METABOLIC [id number] 00:00:00 Test Item Value Reference Range Interpretation Comments GLUCOSE (test code = 2217) 113 MG/DL BUN (test code = 2208) 22 MG/DL CREATININE (test code = 2214) 0.9 MG/DL eGFR AMER. (test code 85 ML/MIN/1.73 = 90360) eGFR NON- AMER. (test 70 ML/MIN/1.73 code = 93139) CALCULATED BUN/CREAT (test 24 RATIO code = [...] code = 2219) 24 U/L COMPREHENSIVE METABOLIC [id number] 00:00:00 Test Item Value Reference Range Interpretation Comments GLUCOSE (test code = 2217) 113 MG/DL BUN (test code = 2208) 22 MG/DL CREATININE (test code = 2214) 0.9 MG/DL eGFR AMER. (test code 85 ML/MIN/1.73 = 38859) eGFR NON- AMER. (test 70 ML/MIN/1.73 code = 61954) CALCULATED BUN/CREAT (test 24 RATIO code = [...] ALKALINE PHOSPHATASE (test 50 U/L code = 2203) SGOT (AST) (test code = 2218) 21 U/L SGPT (ALT) (test code = 2219) 24 U/L CBC W/AUTO [id number] 00:00:00 Test Item Value Reference Range Interpretation [...] code = 1015) 270 K/UL CBC W/AUTO [id number] 00:00:00 Test Item Value Reference Range Interpretation [...] code = 1015) 270 K/UL CBC W/AUTO [id number] 00:00:00 Test Item Value Reference Range Interpretation [...] (test code = 1015) 270 K/UL HEMOGLOBIN [id number] 00:00:00 Test Item Value Reference Range Interpretation Comments HEMOGLOBIN A1c (test code = 64821) 7.3 % HEMOGLOBIN [id number] 00:00:00 Test Item Value Reference Range Interpretation Comments HEMOGLOBIN A1c (test code = 63533) 7.3 % HEMOGLOBIN [id number] 00:00:00 Test Item Value Reference Range Interpretation Comments HEMOGLOBIN A1c (test code = 48602) 7.3 % COMPREHENSIVE METABOLIC [id number] 00:00:00 Test Item Value Reference Range Interpretation Comments GLUCOSE (test code = 2217) 113 MG/DL BUN (test code = 2208) 22 MG/DL CREATININE (test code = 2214) 0.9 MG/DL eGFR AMER. (test code 85 ML/MIN/1.73 = 56437) eGFR NON- AMER. (test 70 ML/MIN/1.73 code = 62323) CALCULATED BUN/CREAT (test 24 RATIO code = [...] code = 2219) 24 U/L COMPREHENSIVE METABOLIC [id number] 00:00:00 Test Item Value Reference Range Interpretation Comments GLUCOSE (test code = 2217) 113 MG/DL BUN (test code = 2208) 22 MG/DL CREATININE (test code = 2214) 0.9 MG/DL eGFR AMER. (test code 85 ML/MIN/1.73 = 78864) eGFR NON- AMER. (test 70 ML/MIN/1.73 code = 97096) CALCULATED BUN/CREAT (test 24 RATIO code = [...] code = 2219) 24 U/L CBC W/AUTO [id number] 00:00:00 Test Item Value Reference Range Interpretation [...] code = 1015) 270 K/UL CBC W/AUTO [id number] 00:00:00 Test Item Value Reference Range Interpretation [...] code = 1015) 270 K/UL CBC W/AUTO [id number] 00:00:00 Test Item Value Reference Range Interpretation [...] (test code = 1015) 270 K/UL HEMOGLOBIN [id number] 00:00:00 Test Item Value Reference Range Interpretation Comments HEMOGLOBIN A1c (test code = 26759) 7.3 % HEMOGLOBIN [id number] 00:00:00 Test Item Value Reference Range Interpretation Comments HEMOGLOBIN A1c (test code = 72984) 7.3 % HEMOGLOBIN [id number] 00:00:00 Test Item Value Reference Range Interpretation Comments HEMOGLOBIN A1c (test code = 94266) 7.3 % COMPREHENSIVE METABOLIC [id number] 00:00:00 Test Item Value Reference Range Interpretation Comments GLUCOSE (test code = 2217) 113 MG/DL BUN (test code = 2208) 22 MG/DL CREATININE (test code = 2214) 0.9 MG/DL eGFR AMER. (test code 85 ML/MIN/1.73 = 83622) eGFR NON- AMER. (test 70 ML/MIN/1.73 code = 32709) CALCULATED BUN/CREAT (test 24 RATIO code = [...] code = 2219) 24 U/L COMPREHENSIVE METABOLIC [id number] 00:00:00 Test Item Value Reference Range Interpretation Comments GLUCOSE (test code = 2217) 113 MG/DL BUN (test code = 2208) 22 MG/DL CREATININE (test code = 2214) 0.9 MG/DL eGFR AMER. (test code 85 ML/MIN/1.73 = 42835) eGFR NON- AMER. (test 70 ML/MIN/1.73 code = 35780) CALCULATED BUN/CREAT (test 24 RATIO code = 2235) SODIUM (test code = 2231) 138 MEQ/L POTASSIUM (test code = 2228) 4.6 MEQ/L CHLORIDE (test code = 2215) 102 MEQ/L CARBON DIOXIDE (test code = 22 MEQ/L 220) CALCIUM (test code = 2209) 10.6 MG/DL PROTEIN, TOTAL (test code = 8.1 G/DL 2228) ALBUMIN (test code = 2201) 4.7 G/DL CALCULATED GLOBULIN (test code 3.4 G/DL = 2240) CALCULATED A/G RATIO (test 1.4 RATIO code = 2234) BILIRUBIN, TOTAL (test code = 0.4 MG/DL 2206) ALKALINE PHOSPHATASE (test 50 U/L code = 220) SGOT (AST) (test code = 2218) 21 U/L SGPT (ALT) (test code = 2219) 24 U/L CBC W/AUTO [id number] 00:00:00 Test Item Value Reference Range Interpretation [...] code = 1015) 270 K/UL CBC W/AUTO [id number] 00:00:00 Test Item Value Reference Range Interpretation [...] code = 1015) 270 K/UL CBC W/AUTO [id number] 00:00:00 Test Item Value Reference Range Interpretation [...] (test code = 1015) 270 K/UL HEMOGLOBIN [id number] 00:00:00 Test Item Value Reference Range Interpretation Comments HEMOGLOBIN A1c (test code = 84255) 7.3 % HEMOGLOBIN [id number] 00:00:00 Test Item Value Reference Range Interpretation Comments HEMOGLOBIN A1c (test code = 31352) 7.3 % HEMOGLOBIN [id number] 00:00:00 Test Item Value Reference Range Interpretation Comments HEMOGLOBIN A1c (test code = 95099) 7.3 %"
[2022-07-31 15:06] LABS: Absolute Lymphocytes (CBC) 2.7 K/uL (0.7-4.9); Hematocrit 35.1 % (36.0-45.0); Lymphocytes % 31.9 % (15.3-44.8); MCV 83.3 fL (80-100); MPV 7.4 fL (7.6-11.3); RBC Red Blood Cell Count 4.21 M/uL (3.86-4.86)
[2022-07-31 15:26] LABS: Albumin 3.8 g/dL (3.4-5.0); Bilirubin Total 0.4 mg/dL (0.2-1.0); Potassium 4.1 mmol/L (3.5-5.1); Protein, Total 8.1 g/dL (6.4-8.2)
[2022-07-31] MEDS ORDERED: PROMETHAZINE INJ 25 MG/ML AMP ONE (16:32)
[2022-07-31] MEDS ORDERED: INSULIN -REGULAR HUMAN 50 UNIT/0.5 ML ML ONE ×2 (16:33→18:23)
--- NOTE | 2022-07-31 17:04 | RAD REPORT ---
EXAM DESCRIPTION: CTAbdomen Pelvis W Contrast - 07/31/2022 4:55 pm CLINICAL HISTORY: abdominal pain COMPARISON: Abdomen Pelvis W Contrast dated 04/10/2022; Abdomen Pelvis W Contrast dated 12/07/2021 ; Abdomen Pelvis W Contrast dated 11/08/2021; Abdomen Pelvis W Contrast dated 03/23/2020 TECHNIQUE: CT of the abdomen and pelvis was performed with IV contrast. All CT scans are performed using dose optimization technique as appropriate and may include automated exposure control or mA/KV adjustment according to patient size. FINDINGS: Lower chest: Mild circumferential thickened distal esophagus. Liver: Hepatic steatosis. No focal lead ends Biliary: Cholecystectomy Stomach: No significant focal abnormality. Duodenum: No significant focal abnormality. Pancreas: No significant abnormality. Spleen: No significant abnormality. Adrenal: No suspicious lesions. Kidney/ureter: No hydronephrosis. 3 mm stone upper pole right kidney. Retroperitoneum: No retroperitoneal adenopathy. Vascular: No aneurysm. Bowel: Normal appendix.. Peritoneum: No ascites or free air. Bladder: Bladder stimulator. Reproductive: No adnexal masses. Bones: No acute fracture. Other: n/a IMPRESSION: No acute intra-abdominal or pelvic finding. Normal appendix. Nonobstructive right nephro lithiasis .
[2022-07-31] MEDS ORDERED: NA CHLORIDE 0.9% 1,000 ML ONE (18:23)
--- NOTE | 2022-07-31 19:30 | ER ---
Nurse's Notes [facility] Name: Valentina Franco Age: 42 yrs Sex: Female : 1980 Arrival Date: 07/31/2022 Time: 14:01 Bed DIS4 Private MD: Diagnosis: Abdominal pain, Generalized;Hyperglycemia, unspecified Presentation: 07/31 14:46 Chief complaint: Patient states: Mid abdominal pain x 1 day, N/V, hx of pancreatitis. jl7 Coronavirus screen: Vaccine status: Patient reports being unvaccinated. Ebola Screen: No symptoms or risks identified at this time. Initial Sepsis Screen: Does the patient meet any 2 criteria? No. Patient's initial sepsis screen is negative. Does the patient have a suspected source of infection? No. Patient's initial sepsis screen is negative. Risk Assessment: Do you want to hurt yourself or someone else? Patient reports no desire to harm self or others. Onset of symptoms was July 30, 2022. 14:46 Method Of Arrival: Ambulatory [facility] 14:46 Acuity: CYNTHIA 3 jl7 Triage Assessment: 14:48 General: Appears in no apparent distress. uncomfortable, Behavior is calm, cooperative, jl7 appropriate for age, crying. Pain: Complains of pain in abdomen Pain currently is 10 out of 10 on a pain scale. GI: Reports nausea, vomiting. 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 N/A - Irregular menses jl7 Historical: - Allergies: 14:48 No Known Allergies; jl7 - Home Meds: 14:48 atorvastatin 80 mg Oral tab 1 tab once daily [Active]; Victoza 2-Christofer 0.6 mg/0.1 mL (18 jl7 mg/3 mL) subcutaneous pnij [Active]; Tresiba FlexTouch U-100 100 unit/mL (3 mL) subcutaneous inpn [Active]; metformin 1,000 mg Oral cp24 1 tab twice a day for Type 2 Diabetes Mellitus [Active]; lisinopril 10 mg Oral tab 1 tab once daily [Active]; Januvia Oral [Active]; glipizide 10 mg Oral tab 1 tab 2 times per day [Active]; fenofibrate micronized 134 mg Oral cap once daily [Active]; Buspirone Oral [Active]; - PMHx: 14:48 Anxiety; Depression; Diabetes - NIDDM; High Cholesterol; Pancreatitis; UTI; jl7 - PSHx: 14:48 section; Cholecystectomy; foot surgery; jl7 - Immunization history:: Client reports receiving the 2nd dose of the Covid vaccine. - Social history:: Smoking status: Patient denies any tobacco usage or history of. Screenin:38 [facility] ED Fall Risk Assessment (Adult) History of falling in the last 3 months, tw5 including since admission. Abuse screen: Denies threats or abuse. Denies injuries from another. Nutritional screening: No deficits noted. Tuberculosis screening: No symptoms or risk factors identified. Assessment: 18:20 Reassessment: Patient is alert, oriented x 3, equal unlabored respirations, skin aa5 warm/dry/pink. 19:38 GI: Bowel sounds present X 4 quads. Abd is soft and non tender X 4 quads. tw5 Vital Signs: 14:46 BP 140 / 79; Pulse 101; Resp 17; Temp 98.1; Pulse Ox 100% ; Weight 100.24 kg; Height 5 jl7 ft. 4 in. (162.56 cm); Pain 10/10; 14:46 Body Mass Index 37.93 (100.24 kg, 162.56 cm) jl7 ED Course: 14:01 Patient arrived in ED. am2 14:01 Jason Connolly PA is PHCP. [facility] 14:01 Tiburcio Linder MD is Attending Physician. [facility] 14:48 Triage completed. jl7 14:48 Arm band placed on right wrist. jl7 14:49 Initial lab(s) drawn, by [facility], sent to lab. Inserted saline lock: 20 gauge in right aa5 forearm, using aseptic technique. Blood collected. 16:56 CT Abd/Pelvis - IV Contrast Only In Process Unspecified. EDMS 19:38 No provider procedures requiring assistance completed. IV discontinued, intact, tw5 bleeding controlled, No redness/swelling at site. Pressure dressing applied. 19:39 Patient has correct armband on for positive identification. Placed in gown. Bed in low tw5 position. Call light in reach. Side rails up X 1. Administered Medications: 15:02 Drug: Lactated Ringers Solution 2000 ml Route: IV; Rate: 2000 bolus; Site: right jl7 forearm; 19:41 Follow up: Response: No adverse reaction; IV Status: Completed infusion; IV Intake: tw5 2000ml 15:04 Drug: Zofran (Ondansetron) 4 mg Route: IVP; Site: right forearm; jl7 19:41 Follow up: Response: No adverse reaction tw5 15:06 Drug: morphine 4 mg Route: IVP; Infused Over: 4 mins; Site: right forearm; jl7 19:41 Follow up: Response: No adverse reaction; RASS: Alert and Calm (0) tw5 16:36 Drug: Promethazine 12.5 mg Route: IVP; Site: right forearm; vg1 19:42 Follow up: Response: No adverse reaction tw5 16:38 Drug: Insulin Regular Human 10 units {Co-Signature: zeeshan (Greta Luis RN).} vg1 Route: IVP; Site: right forearm; 19:41 Follow up: Response: No adverse reaction tw 18:20 Drug: NS 0.9% 1000 ml Route: IV; Rate: 1 bolus; Site: right forearm; aa5 19:41 Follow up: Response: No adverse reaction; IV Status: Completed infusion; IV Intake: tw5 1000ml 18:20 Drug: Insulin Regular Human 5 units {Co-Signature: db (Latoya Mathews RN).} Route: aa5 IVP; Site: right forearm; 19:41 Follow up: Response: No adverse reaction tw Medication: 19:40 VIS not applicable for this client. tw5 Intake: 19:41 IV: 1000ml; Total: 1000ml. tw5 19:41 IV: 2000ml; Total: 3000ml. Outcome: 19:29 Discharge ordered by MD. [place] 19:39 Discharged to home tw5 19:39 Condition: improved 19:39 Discharge instructions given to patient, Instructed on discharge instructions, follow up and referral plans. Demonstrated understanding of instructions, follow-up care, medications, Prescriptions given X 3. 19:43 Patient left the ED. tw Signatures: Dispatcher [employer] EDMS Jason Connolly PA PA jmm Calderon, Audri, RN RN aa5 Tom Mckeon RN RN jl7 Ashley Diaz Victoria RN RN vg1 Radha Schuster tw5 Greta Luis RN mb9 Latoya Mathews RN db
--- NOTE | 2022-07-31 19:30 | EDPHYS ---
Physician Documentation [facility] Name: Valentina Franco Age: 42 yrs Sex: Female : 1980 Arrival Date: 07/31/2022 Time: 14:01 Bed DIS4 Private MD: PHYLICIA Physician Tiburcio Linder HPI: 07/31 14:39 This 42 yrs old Female presents to ER via Ambulatory with complaints of jmm Abdominal Pain. 14:39 The patient presents with abdominal pain. Onset: The symptoms/episode began/occurred jmm gradually, today. The symptoms do not radiate. Associated signs and symptoms: Pertinent positives: nausea. Is a 42-year-old female with history of depression, diabetes mellitus, hyperlipidemia, pancreatitis the presents emerged part with complaints of abdominal pain, nausea which is been ongoing for about a day. Denies diarrhea. Denies active vomiting. 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 N/A - Irregular menses jl7 Historical: - Allergies: 14:48 No Known Allergies; jl7 - Home Meds: 14:48 atorvastatin 80 mg Oral tab 1 tab once daily [Active]; Victoza 2-Christofer 0.6 mg/0.1 mL (18 jl7 mg/3 mL) subcutaneous pnij [Active]; Tresiba FlexTouch U-100 100 unit/mL (3 mL) subcutaneous inpn [Active]; metformin 1,000 mg Oral cp24 1 tab twice a day for Type 2 Diabetes Mellitus [Active]; lisinopril 10 mg Oral tab 1 tab once daily [Active]; Januvia Oral [Active]; glipizide 10 mg Oral tab 1 tab 2 times per day [Active]; fenofibrate micronized 134 mg Oral cap once daily [Active]; Buspirone Oral [Active]; - PMHx: 14:48 Anxiety; Depression; Diabetes - NIDDM; High Cholesterol; Pancreatitis; UTI; jl7 - PSHx: 14:48 section; Cholecystectomy; foot surgery; jl7 - Immunization history:: Client reports receiving the 2nd dose of the Covid vaccine. - Social history:: Smoking status: Patient denies any tobacco usage or history of. ROS: 14:39 Constitutional: Negative for fever, chills, and weight loss, Cardiovascular: Negative jm for chest pain, palpitations, and edema, Respiratory: Negative for shortness of breath, cough, wheezing, and pleuritic chest pain. 14:39 Abdomen/GI: Positive for abdominal pain. 14:39 All other systems are negative. Exam: 14:39 Constitutional: This is a well developed, well nourished patient who is awake, alert, jmm and in no acute distress. Head/Face: atraumatic. Eyes: EOMI, no conjunctival erythema appreciated ENT: Moist Mucus Membranes Neck: Trachea midline, Supple Chest/axilla: Normal chest wall appearance and motion. Cardiovascular: Regular rate and rhythm. No edema appreciated Respiratory: Normal respirations, no respiratory distress appreciated 14:39 Back: Normal ROM Skin: General appearance color normal MS/ Extremity: Moves all extremities, no obvious deformities appreciated, no edema noted to the lower extremities Neuro: Awake and alert Psych: Behavior is normal, Mood is normal, Patient is cooperative and pleasant 14:39 Abdomen/GI: Inspection: abdomen appears normal, Bowel sounds: normal, Palpation: soft, mild abdominal tenderness, in the epigastric area. Vital Signs: 14:46 BP 140 / 79; Pulse 101; Resp 17; Temp 98.1; Pulse Ox 100% ; Weight 100.24 kg; Height 5 jl7 ft. 4 in. (162.56 cm); Pain 10/10; 14:46 Body Mass Index 37.93 (100.24 kg, 162.56 cm) jl7 MDM: 14:39 Patient medically screened. [facility] 19:28 Data reviewed: vital signs, nurses notes. I considered the following discharge [facility] prescriptions or medication management in the emergency department Medications were administered in the Emergency Department. See MAR. Counseling: I had a detailed discussion with the patient and/or guardian regarding: the historical points, exam findings, and any diagnostic results supporting the discharge/admit diagnosis, lab results, the need for outpatient follow up, to return to the emergency department if symptoms worsen or persist or if there are any questions or concerns that arise at home. Response to treatment: the patient's symptoms have markedly improved after treatment, and as a result, I will discharge patient. 07/31 14:40 Order name: CBC with Diff; Complete Time: 15:09 [facility] 07/31 14:40 Order name: CMP; Complete Time: 15:34 [facility] 07/31 14:40 Order name: Lipase; Complete Time: 15:34 [facility] 07/31 15:59 Order name: CT Abd/Pelvis - IV Contrast Only; Complete Time: 17:06 [facility] 07/31 17:47 Order name: Glucose, Ancillary Testing; Complete Time: 17:47 [facility] 07/31 19:34 Order name: Glucose, Ancillary Testing [facility] 07/31 14:40 Order name: IV Saline Lock; Complete Time: 14:50 [facility] 07/31 14:40 Order name: Labs collected and sent; Complete Time: 14:50 [facility] 07/31 17:25 Order name: Finger Stick; Complete Time: 17:37 [facility] Administered Medications: 15:02 Drug: Lactated Ringers Solution 2000 ml Route: IV; Rate: 2000 bolus; Site: right jl7 forearm; 19:41 Follow up: Response: No adverse reaction; IV Status: Completed infusion; IV Intake: tw5 2000ml 15:04 Drug: Zofran (Ondansetron) 4 mg Route: IVP; Site: right forearm; jl7 19:41 Follow up: Response: No adverse reaction tw5 15:06 Drug: morphine 4 mg Route: IVP; Infused Over: 4 mins; Site: right forearm; jl7 19:41 Follow up: Response: No adverse reaction; RASS: Alert and Calm (0) tw5 16:36 Drug: Promethazine 12.5 mg Route: IVP; Site: right forearm; vg1 19:42 Follow up: Response: No adverse reaction tw5 16:38 Drug: Insulin Regular Human 10 units {Co-Signature: mb9 (Greta Luis RN).} vg1 Route: IVP; Site: right forearm; 19:41 Follow up: Response: No adverse reaction tw5 18:20 Drug: NS 0.9% 1000 ml Route: IV; Rate: 1 bolus; Site: right forearm; aa5 19:41 Follow up: Response: No adverse reaction; IV Status: Completed infusion; IV Intake: tw5 1000ml 18:20 Drug: Insulin Regular Human 5 units {Co-Signature: db (Latoya Mathews RN).} Route: aa5 IVP; Site: right forearm; 19:41 Follow up: Response: No adverse reaction tw5 Disposition: 08/01 13:33 Co-signature as Attending Physician, Tiburcio Linder MD. rn Disposition Summary: 07/31/22 19:29 Discharge Ordered Location: Home [facility] Condition: Stable jmm Diagnosis - Abdominal pain, Generalized jmm - Hyperglycemia, unspecified jmm Followup: m - With: Private Physician - When: 2 - 3 days - Reason: Recheck today's complaints, Continuance of care, Re-evaluation by your physician Discharge Instructions: - Discharge Summary Sheet jmm - Abdominal Pain, Adult jmm Forms: - Medication Reconciliation Form [facility] - Thank You Letter [facility] - Antibiotic Education [facility] - Prescription Opioid Use [facility] Prescriptions: - Reglan 10 mg Oral Tablet - take 1 tablet by ORAL route every 6 hours As needed take 30 minutes before jm meals and at bedtime; 30 tablet; Refills: 0, Product Selection Permitted - Pepcid 20 mg Oral Tablet - take 1 tablet by ORAL route once daily; 20 tablet; Refills: 0, Product [facility] Selection Permitted - ondansetron 4 mg Oral tablet,disintegrating - place 1 tablet by TRANSLINGUAL route every 4-6 hours As needed; 20 tablet; [facility] Refills: 0, Product Selection Permitted Signatures: Dispatcher [employer] EDJason Stephens PA PA [facility] Tiburcio Linder MD MD rn Calderon, Audri, RN RN aa5 Tom Mckeon RN RN jl7 Lizzeth Kwon RN RN laisha1 Radha Schuster tw5 Greta Luis RN mb9 Latoya Mathews RN db
[2022-07-31 22:41] VITALS: BP 140/79; TEMP 98.1; O2SAT 100
== END 2022-07-31 19:43 | disposition home or self-care (01) ==
LOC: ER 13:53
DX: R10.84 Generalized abdominal pain (principal); E11.65 Type 2 diabetes mellitus with hyperglycemia; Z79.4 Long term (current) use of insulin; E78.00 Pure hypercholesterolemia, unspecified; F32.A Depression, unspecified
CPT/HCPCS: 96361; 85025; 36415; 82947 ×2; 83690; 80053; 74177; 96375; 96374; 99284; Q9967; J2550; J1815 ×2; J7120; J7030; J2405

== ENCOUNTER 2022-08-11 07:48 | Emergency (ER) | payer OTHER ==
[2022-08-11 08:23] LABS: Urine Blood Negative (Negative); Urine Glucose 2+ (Negative); Urine Protein Trace (Negative); Urine pH 5.5 (5.0-7.0)
[2022-08-11 08:30] LABS: Urine Bacteria None Seen /HPF (<20); Urine Mucus Slight /HPF (None Seen); Urine RBC <5 /HPF (None Seen)
[2022-08-11 08:32] LABS: Absolute Lymphocytes (CBC) 2.2 K/uL (0.7-4.9); Hematocrit 33.9 % (36.0-45.0); Lymphocytes % 22.9 % (15.3-44.8); MCV 84.6 fL (80-100); MPV 6.7 fL (7.6-11.3); RBC Red Blood Cell Count 4.01 M/uL (3.86-4.86)
[2022-08-11] MEDS ORDERED: ONDANSETRON 4 MG/2 ML VIAL ONE (08:44)
[2022-08-11] MEDS ORDERED: FAMOTIDINE 20 MG/2 ML VIAL IV ONE (08:44)
[2022-08-11] MEDS ORDERED: NA CHLORIDE 0.9% 1,000 ML ONE (08:44)
[2022-08-11] MEDS ORDERED: KETOROLAC 30 MG/ML INJ ONE (08:44)
[2022-08-11 08:51] LABS: ALT/SGPT 41 U/L (13-56); AST/SGOT 18 U/L (15-37); Albumin 3.5 g/dL (3.4-5.0); Alkaline Phosphatase 48 U/L (45-117); BUN Blood Urea Nitrogen 17 mg/dL (7-18); Bicarbonate 23 mmol/L (21-32); Bilirubin Total 0.4 mg/dL (0.2-1.0); Glomerular Filtration Rate 69 ml/min (=/>90); Glucose Level 315 mg/dL (74-106); Lipase 295 U/L (73-393); Potassium 4.3 mmol/L (3.5-5.1); Protein, Total 7.7 g/dL (6.4-8.2); Sodium Level 137 mmol/L (136-145)
--- OUTSIDE RECORDS SUMMARY | 2022-08-11 09:06 | XMS REPORT | Continuity of Care Document ---
:1980 Author Organization [facility] t Address [address] [place] [address] Care Team Providers Name Role Phone [phone] Primary Care Physician Unavailable Bebeto Quiroga Attending Clinician Unavailable Elbert Wilson Attending Clinician Unavailable KATELYN BUCKNER Attending Clinician Unavailable Katelyn Kennedy Attending Clinician Ernst MEI, Silvina Elise Attending Clinician [phone] BEATRIZ EDUARDO Attending Clinician Unavailable Beatriz Eduardo [...] LILY DELEON Attending Clinician Unavailable Doctor Unassigned, [place] Attending Clinician Unavailable STANISLAW SUN Attending Clinician [...] Effective Date Expiration Date Nakul QUINONEZ GENERIC [id number] 2019 00:00:00 COMMERCIAL [id number] 2021 NON-CONTRACT 00:00:00 GENERIC Problems Condition Condition Condition Status Onset Resolution Last Treating Co mments Source Name Details Category Date Date Treatment Clinician Date Essential Essential Disease Active Uni vers hypertensi hypertensi 5-26 it y of on on 00:00: [address] POTS POTS Disease Active Univers (postural (postural 5-26 ity of orthostati orthost[place] 00 Medical tachycardi tachycardi Br anch a a syndrome) syndrome) Dyslipidem Dyslipidem Disease Active U nivers ia ia 5-26 ity of 00:00: [place] [facility] Atypical Atypical Disease Active Unive rs chest pain chest pain 5-25 it y of 00:00: [place] [facility] Pancreatit Pancreatit Disease Active U nivers is, is, 4-24 ity of recurrent recurrent 00:[place] [facility] Vulvar Vulvar Disease Active Methodi pain pain 5-14 st 00:00: Hospita 00 l Pyelonephr Pyelonephr Disease Active M ethodi itis itis - st 00:00: Hospita 00 l Pelvic Pelvic Disease Active Methodi pain in pain in 01-14 st female female 00:00: Hospita 00 l [...] surgical 1-30 ity of incision incision 00:00: [place] 00 [facility] Mood Mood Disease Active Univers swings swings 1-30 ity of 00:00: [place] 00 [facility] Gestationa Gestationa Disease Active 2012-07 U nivers l l 2-21 ity of hypertensi hypertensi [place] [facility] [place] Gestationa Gestationa Disease Active 2012-07 U nivers l l 2-21 ity of hypertensi hypertensi [place] [facility] [place] Ventral Ventral Disease Active 2012-07 Univers hernia hernia 2-21 ity of 00:00: [place] 00 [facility] 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 U [...] anxiety 01-25 ity of disorder disorder 00:00: Medical Branch Not immune Not immune Disease Active Overview : Univers to rubella to rubella 6 Formattin ity of 00:00: g of this [place] 00 note Medical might be Branch different from the original. Immunize postpartu mICD10 Diagnosis Term State Game Warden Utility Immune to Immune to Disease Active Uni vers varicella varicella 6 ity of 00:00: [place] 00 Medical Branch Morbid Morbid Disease Active [facility] obesity obesity 3-02 ity of 00:00: [place] [address] Medical Branch Type 2 Type 2 Disease [...] 00 dic Hospita l alcohol FA Active [place] [facility]ES [facility] 07-30 [place] 00:00: [facility] 00 dic Hospita l tequila DA Active [place] hives [facility] 07-30 [place] 00:00: Orthope 00 dic Hospita l alcohol FA Active MO [facility] 01-15 [place] 00:00: Orthope 00 dic Hospita l alcohol FA Active MO HIVES TO [facility] [place] 01-15 [place] 00:00: Orthope 00 dic Hospita l tequila DA Active MO hives [facility] 7-02 [place] 00:00: [facility] 00 [facility] Cefpodox Propensi Active Other (See Eye and M ethodi dewayne ty to Comments) 8-[address] adverse 00:00: Swelling Hospita reaction 00 30 mins l s to after drug taking medicatio n alcohol FA Active [place] 2015-07 [facility] 09-06 [place] 00:00: Orthope 00 dic Hospita l alcohol FA Active [place] TURNS RED 2015-07 [facility] 09-06 [place] 00:00: Orthope 00 dic Hospita l NO KNOWN Drug Active Univers ALLERGIE Class ity of S [facility] Family History Family Member Diagnosis Comments Start Date Stop Date Source Natural brother Diabetes [facility] Natural father [facility] Natural mother Diabetes [facility] Natural sister Diabetes [facility] Social History Social Habit Start Date Stop Date Quantity Comments Source Exposure to 2022-06-11 2022-06-21 Not sure [place] [id number] 00:00:00 17:24:00 [facility] (event) [place] Alcohol intake 2019-11-22 2019-11-22 Current drinker [facility] 00:00:00 00:00:00 of alcohol Hospital (finding) History SDOH 2019-11-22 2019-11-22 2 [facility] Frequency 00:00:00 00:00:00 Hospita l History SDNM 2019-11-22 2019-11-22 1 [facility] Std 00:00:00 00:00:00 Hospital Drinks History SDNM 2019-11-22 2019-11-22 1 [facility] Binge 00:00:00 00:00:00 Hospital Alcohol Comment 2016-09-09 2016-09-09 Megan joe. Meth odist 00:00:00 00:00:00 Hospital Tobacco use and 2012-12-13 2012-12-13 Smokeless tobacco Un iversity of exposure 00:00:00 00:00:00 non-user [facility] Sex Assigned At [birth year] [facility] 00:00:[facility]:00 Hospital Smoking Status Start Date Stop Date Source Never smoked tobacco [facility] Medications Ordered Filled Start Stop Current Ordering Indication Dosage Frequency Signature Comments Components Source Medication Medication Date Date Medication? Clinician (SIG) Name Name TAKE 2021-07 No TABLET 2-14 DAILY. 00:00: 00 TAKE 2021- No TABLET 2-14 TWICE 00:00: DAILY. 00 TAKE 1 2021- No TABLET 2-14 TWICE DAILY 00:00: UNTIL 00 FINISHED. INJECT 72 2021- No UNITS TWICE 2-14 A DAY 00:00: 00 TAKE 1 2021- No TABLET 2-14 DAILY. 00:00: 00 TAKE 2021- No DIRECTED. 2-14 00:00: 00 Dose 2021- No Unknown 2-14 00:00: 00 USE 3-4 2021- No TIMES 2-14 WEEKLY. 00:00: LEAVE ON 00 FOR 5-10 MINUTES BEFORE RINSING. Dose 2021- No Unknown 2-14 00:00: 00 TAKE 2 2021-1 No TABLETS BY 2-14 MOUTH ON 00:00: DAY 1 AND 00 THEN TAKE 1 TABLET BY MOUTH ONCE DAILY AFTERWARDS FOR 14 DAYS INJECT 2021-1 No BELOW THE 2-14 SKIN 70 00:00: UNITS 2 00 TIMES A DAY TAKE 1 2021- No TABLET BY 2-14 MOUTH EVERY 00:00: DAY 00 1 TABLET 2021- No WITH FOOD 2-14 FOR 10 00:00: CONSECUTIVE 00 DAYS EACH MONTH ORALLY TAKE 1 2021- No TABLET BY 2-14 MOUTH EVERY 00:00: 4 HOURS 00 NEEDED FOR NAUSEA AND VOMITING . TAKE 1 2021- No TABLET BY 2-14 [...] 6 HOURS 00 NEEDED FOR PAIN SPIRONOLACT 2021- No 100 100MG 2-14 Tablets 00:00: 00 Dose 2021- No Unknown 2-14 00:00: 00 Dose 2021-1 No Unknown 2-14 00:00: 00 Dose 2021- No Unknown 2-14 00:00: 00 USE 2 2021- No SPRAYS IN 2-14 EACH 00:00: NOSTRIL 00 ONCE A DAY Dose 2021- No Unknown 2-14 00:00: 00 [...] 2021- No DIRECTED. 2-14 00:00: 00 Dose 2021- No Unknown 2-14 00:00: 00 USE 3-4 2021-1 No TIMES 2-14 WEEKLY. 00:00: LEAVE ON 00 FOR 5-10 MINUTES BEFORE RINSING. Dose 2021- No Unknown 2-14 00:00: 00 TAKE 2 2021-1 No TABLETS BY 2-14 MOUTH ON 00:00: [...] FOR NAUSEA AND VOMITING . TAKE 1 2021- No TABLET BY 2-14 [...] TWICE 00:00: A DAY 00 TAKE 1 2021-1 No TABLET BY 2-14 MOUTH EVERY 00:00: [...] of at least 10% in glucose levels, AZO for considerat ion of endocrinol ogy consult&nb [...] 2-13 ity of 1000 mL + 02:00: [place] KCL 20 mEq 00 [facility] D5W 0.45% 2021-07 Yes 1000mL at 200 Univ ers NaCl 2-13 mL/hr, ity of (1/2NS) IV 01:48: 1,000 [place], [place] infusion 28 IV Medical 1,000 mL Infusion, [place] PRN - SEE INSTRUCTIO NS, Starting on Tue06/21/22 at 1948, Until Discontinu ed, MALAIKA ondansetron 2021-07- No 4mg 4 mg, Slow Univers (ZOFRAN 2-13 12-13 IV Push, ity of (PF)) 01:00: 01:01 ONCE, 1 [place] injection 4 00 :00 dose, On Medi bonita mg [facility] 06/21/22 at 1900, MALAIKA NaCl 0.9% 2021-07- No 1000mL at 999 Uni vers (NS) bolus 2-13 12-13 mL/hr, ity of infusion 00:45: 01:56 1,000 mL, [place] as 1,000 mL 00 :00 IV Medical Infusion, Branch ONCE, 1 dose, On Tue06/21/22 at 1845, STAT TAKE 2021-07 No TABLET 0-21 TWICE A DAY 00:00: 00 TAKE 2021-07 No TABLET 0-21 TWICE A DAY 00:00: 00 TAKE 2021-07 No TABLET 0-21 TWICE A [...] oral 00 syrup Dose 2022-0 No Unknown 7-13 00:00: 00 Dose 2022-0 No Unknown 6- 00:00: 00 Dose 2022-0 No Unknown 6-03 00:00: 00 Valium 10 2022-0 No 1mg [...] Valium 10 2022-0 No 1mg mg tablet 6 00:00: 00 Macrodantin 2022-0 No 1mg 100 mg 6- capsule 00:00: 00 Valium 10 2022-0 No 1mg mg tablet 6 00:00: 00 Macrodantin 2022-0 No 1mg 100 mg 6-03 capsule 00:00: 00 Valium 10 2022-0 No 1mg mg tablet 6 00:00: 00 Macrodantin 2022-0 No 1mg 100 mg 6-03 capsule 00:00: 00 Valium 10 2022-0 No 1mg mg tablet 6 00:00: 00 Macrodantin 2022-0 No 1mg 100 mg 6-03 capsule 00:00: 00 Valium 10 2022-0 No 1mg mg tablet 6 00:00: 00 Macrodantin 2022-0 No 1mg 100 mg 6-03 capsule 00:00: 00 Dose 2022-0 No Unknown 6- 00:00: 00 Dose 2022-0 No Unknown 6- 00:00: 00 Dose 2022-0 No Unknown 5-18 [...] lisinopril 2022-0 No 1mg 5 mg tablet 514 00:00: 00 atorvastati 2022-0 No 1mg n 40 mg 5-14 tablet 00:00: 00 oxybutynin 2022-0 No 1mg chloride 5 5-14 mg tablet 00:00: 00 glimepiride 2-0 No 1mg 4 mg tablet 14 00:00: 00 Janumet XR 2-0 No 1mg [...] 5-14 00:00: 00 Dose 2-0 No Unknown 4-19 00:00: 00 Dose 2022-0 [...] 4-15 00:00: 00 Dose 2022-0 No Unknown 4-13 00:00: 00 Dose 2022-0 No Unknown 4-13 00:00: 00 Dose 2021-0 No Unknown 10-21 00:00: 00 Dose 2021-0 No Unknown 10-21 00:00: 00 Dose 2021-0 No Unknown 10-21 00:00: 00 Dose 2021-0 No Unknown 10-21 00:00: 00 Dose 2021-0 No Unknown 10-21 00:00: 00 Dose 2-0 No Unknown 10-21 00:00: 00 Dose 2021-0 No Unknown 10-21 00:00: 00 Dose 2021-0 No Unknown 10-21 00:00: 00 Dose 2021-0 No Unknown 10-21 00:00: 00 NaCl 0.9% 2021- No 1000mL at 999 Uni vers (NS) IV 10-17- mL/hr, ity of infusion 02:00: 02:08 Intravenou [place] 1,000 mL 00 :00 s, ONCE, 1 Medic al dose, On Branch Tue10/16/21 at 2100, [place] insulin 2021- No .1U/kg 10.3 Units U nivers regular 10-17 (rounded ity of human 02:00: 01:[address] (HUMULIN R) 00 :00 Units = [...] dose, On Tue10/16/21 at 1815, [place] ondansetron 0 2021- No 4mg 4 mg, Slow Univers (ZOFRAN 10-16 IV Push, ity of (PF)) 23:15: 23:05 ONCE, 1 [place] injection 4 00 :00 dose, On Medi bonita mg Tue10/16/21 Branch at 1815, [place]AI[place] ketorolac No 30mg 30 mg, Unive rs (TORADOL) 10-1608 Slow IV ity of injection 23:15: 23:05 Push, [place] 30 mg 00 :00 ONCE, 1 Medical dose, On Branch Tue10/16/21 at 1815, Routine
faculty member approving Restricted medication : BEATRIZ EDUARDO oxybutynin Yes [id number] 5mg Take 1 Univers chloride 5 4-08 tablet by ity of mg tablet 00:00: mouth 3 [place] 00 (three) Medical times Branch daily as needed for Bladder spasms. ondansetron 2021-0 Yes [id number] 4mg Take 1 Univers 4 mg 4-08 tablet by ity of disintegrat 00:00: mouth [place] ing tablet 00 every 8 Medica l (eight) Branch hours as needed for Nausea and Vomiting (N/V). oxybutynin 2021-0 Yes [id number] 5mg Take 1 Univers chloride 5 4-08 tablet by ity of mg tablet 00:00: mouth 3 [place] 00 (three) Medical times Branch daily as needed for Bladder spasms. ondansetron 2021-0 Yes [id number] 4mg Take 1 Univers 4 mg 4-08 [...] 7 days. Indication s: acute pain Dose 2022-0 No Unknown 4-02 00:00: 00 [...] 2022-0 No Unknown 3- 00:00: 00 Diflucan 2022-0 No 1mg 150 [...] 2-0 No Unknown 3- 00:00: 00 Dose 2-0 No Unknown 3- 00:00: 00 Dose 2022-0 No Unknown 3- 00:00: 00 Dose 2022-0 No Unknown 3-29 00:00: 00 Dose 2022-0 No Unknown 3-29 00:00: 00 Dose 2022-0 No Unknown 3-29 00:00: 00 Dose 2022-0 No Unknown 3-29 00:00: 00 Dose 2022-0 No Unknown 3-29 00:00: 00 Dose 2-0 No Unknown 3-29 00:00: 00 Dose 2-0 No Unknown 3- 00:00: 00 Dose 2022-0 No Unknown 3-29 00:00: 00 Diflucan 2-0 No 1mg 150 mg 3- tablet 00:00: 00 ciprofloxac 2-0 No 1mg [...] 00 Diflucan 2-0 No 1mg 150 mg 3- tablet 00:00: 00 ciprofloxac 2-0 No 1mg in 500 mg 3- tablet 00:00: 00 Dose 2-0 No Unknown 3- [...] Dose 2022-0 No Unknown 3-29 00:00: 00 ketorolac 2022-0 2021- No 15mg 15 mg, Unive rs (TORADOL) 09-22 03-16 Slow IV ity of injection 17:00: [...] 2022-0 No Unknown 1-19 00:00: 00 hydrochloro 2-0 No 1mg thiazide 25 1-19 mg tablet 00:00: 00 Dose 2-0 No Unknown 1-19 00:00: 00 Dose 2-0 No Unknown 1-19 00:00: 00 Dose 2-0 No Unknown 1-19 00:00: 00 Dose 2-0 No Unknown 1-19 00:00: 00 amitriptyli 2021-0 [...] 2020-07 30mg 30 mg, Unive rs (TORADOL) 08-19- Slow IV ity of injection 13:15: 12:10 [...] Indication s: acute pain ondansetron 2020-07 Yes [id number] 4mg Take 1 Univers 4 mg 2-09 [...] Indication s: acute pain ondansetron 2020-07 Yes [id number] 4mg Take 1 Univers 4 mg 2-09 [...] Indication s: acute pain ondansetron 2020-07 Yes [id number] 4mg Take 1 Univers 4 mg 2-09 tablet by ity of disintegrat 00:00: mouth [place] ing tablet 00 every 4 Medica l (four) Branch hours as needed for Nausea and Vomiting (N/V). traMADoL 50 2020-07- No [id number] 50mg Take 1 Uni vers mg tablet 08-19-08 tablet by ity of 00:00: 00:00 mouth [place] 00 :00 every 6 Medical (six) Branch hours as needed for Pain (scale 4-6). Indication s: acute pain ondansetron 2020-07- No [id number] 4mg Take 1 Univers 4 mg 2-08 tablet by ity of disintegrat 00:00: 00:00 [...] 05/30/21 at 1800, Routine iopamidol 2020-07- No [id number] 100mL 100 mL, Univers (ISOVUE 07-30 9109 Intravenou ity o f 370-500 mL) 23:48: 23:48 s, ONCE, 1 [place] injection 00 :00 dose, On Medica l 100 mL Sat Branch 05/30/21 at 1800, Routine ibuprofen 2020-07 Yes [id number] 600mg Take 1 Univers 600 mg 1-20 [id number] tablet by ity of tablet 00:00: mouth [place] 00 every 6 Medical (six) Branch hours as needed for Pain (scale 4-6). traMADoL 50 2020-07 Yes [id number] 50mg Take 1 Univ ers mg tablet 1-20 tablet by ity o f 00:00: mouth [place] 00 every 6 Medical (six) Branch hours as needed for Pain (scale 7-10). Indication s: acute pain ibuprofen 2020-07 Yes [id number] 600mg Take 1 Univers 600 mg 1-20 [id number] tablet by ity of tablet 00:00: mouth [place] 00 every 6 Medical (six) Branch hours as needed for Pain (scale 4-6). traMADoL 50 2020-07 Yes [id number] 50mg Take 1 Univ ers mg tablet 1-20 tablet by ity o f 00:00: mouth [place] 00 every 6 Medical (six) Branch hours as needed for Pain (scale 7-10). Indication s: acute pain ibuprofen 2020-07 Yes [id number] 600mg Take 1 Univers 600 mg 1-20 [id number] tablet by ity of tablet 00:00: mouth [place] 00 every 6 Medical (six) Branch hours as needed for Pain (scale 4-6). traMADoL 50 2020-07 Yes [id number] 50mg Take 1 Univ ers mg tablet 1-20 tablet by ity o f 00:00: mouth [place] 00 every 6 Medical (six) Branch hours as needed for Pain (scale 7-10). Indication s: acute pain ibuprofen 2020-07 Yes [id number] 600mg Take 1 Univers 600 mg 1-20 [id number] tablet by ity of tablet 00:00: mouth [place] 00 every 6 Medical (six) Branch hours as needed for Pain (scale 4-6). traMADoL 50 2020-07 Yes [id number] 50mg Take 1 Univ ers mg tablet 1-20 tablet by ity o f 00:00: mouth [place] 00 every 6 Medical (six) Branch hours as needed for Pain (scale 7-10). Indication s: acute pain ibuprofen 2020-07 Yes [id number] 600mg Take 1 Univers 600 mg 1-20 [id number] tablet by ity of tablet 00:00: mouth [place] 00 every 6 Medical (six) Branch hours as needed for Pain (scale 4-6). ibuprofen 2020-07 Yes [id number] 600mg Take 1 Univers 600 mg 1-20 [id number] tablet by ity of tablet 00:00: mouth [...] mg tablet 07-11 00:00: 00 Abilify 5 2021-1 No 1mg mg tablet 07-11 00:00: 00 Abilify 5 2020-1 No 1mg mg tablet 07-11 00:00: 00 Abilify 5 1 No 1mg mg tablet 07-11 00:00: 00 Abilify 5 2020-1 No 1mg mg tablet 07-11 00:00: 00 Abilify 5 1 No 1mg mg tablet 07-11 00:00: 00 [...] 00 Tresiba 2020-0 No (3 mL) FlexTouch 9-28 U-100 00:00: insulin 100 00 unit/mL (3 mL) subcutaneou s pen alogliptin 2020-0 No 1mg 25 mg -28 tablet 00:00: 00 lisinopril 2020-0 No 1mg [...] 00 Vascepa 1 2020-0 No 1gram gram 04-07 capsule 00:00: 00 Tresiba 2020-0 No (3 mL) FlexTouch 9-28 U-100 00:00: [...] 00 Tresiba 1-0 No (3 mL) FlexTouch -28 U-100 00:00: [...] 00 gabapentin 2021-0 No 3mg 300 mg 9- capsule 00:00: [...] amitriptyli 2020-0 No 1mg ne 10 mg 9-28 tablet 00:00: 00 gabapentin 2021-0 No 3mg 300 mg 9-28 capsule 00:00: 00 Vascepa 1 1-0 No 1gram gram - capsule 00:00: 00 Tresiba 1-0 No (3 mL) FlexTouch -28 U-100 00:00: insulin 100 00 unit/mL (3 mL) subcutaneou s pen alogliptin 2020-0 No 1mg 25 mg 9-28 tablet 00:00: 00 lisinopril 1-0 No 1mg 5 mg tablet 04-07 00:00: 00 hydrochloro 2021-0 No 1mg thiazide 25 9-28 mg tablet 00:00: 00 glimepiride 1-0 No 1mg 4 mg tablet 04-07 00:00: 00 Janumet XR 2021-0 No 1mg 100 9-28 mg-1,000 mg 00:00: [...] 00 Vascepa 1 1-0 No 1gram gram -28 capsule 00:00: 00 [...] 00 Vascepa 1 2021-0 No 1gram gram 9- capsule 00:00: 00 [...] 00 gabapentin 1-0 No 3mg 300 mg -28 capsule 00:00: 00 Dose 1-0 No Unknown 04-07 00:00: 00 Tresiba 1-0 No (3 mL) FlexTouch 04-07 U-100 00:00: insulin 100 00 unit/mL (3 [...] 3mg 300 mg - capsule 00:00: 00 Dose 1-0 No Unknown 04-07 00:00: 00 Augmentin 1-0 No 1mg 875 mg-125 9-13 mg tablet 00:00: 00 fluconazole 1-0 No 1mg 200 mg 9-13 tablet 00:00: [...] 00:00: 00 Flonase 0 No 2mcg/ac Allergy 03-23 tuation Relief 50 00:00: mcg/actuati 00 on nasal spray,suspe nsion Dose 0 No Unknown 03-23 00:00: 00 Dose 2020-0 No Unknown 03-23 00:00: 00 Dose 2020-0 No Unknown 03-23 00:00: 00 Dose 2020-0 No Unknown 03-23 00:00: 00 Dose 0 No Unknown 03-23 00:00: 00 Dose 0 No Unknown 03-23 00:00: 00 VASCEPA 1 0 Yes [id number] TAKE 3 U nivers gram 9-10 CAPSULES ity of capsule 00:00: BY MOUTH [place] EVERY DAY Medical Branch VASCEPA 1 0 Yes [id number] TAKE 3 U nivers gram 9-10 CAPSULES ity of capsule 00:00: BY MOUTH [place] EVERY DAY Medical Branch VASCEPA 1 2020-0 Yes [id number] TAKE 3 U nivers gram 9-10 CAPSULES ity of capsule 00:00: BY MOUTH [place] EVERY DAY Medical Branch VASCEPA 1 2020-0 Yes [id number] TAKE 3 U nivers gram 9-10 CAPSULES ity of capsule 00:00: BY MOUTH [place] EVERY DAY Medical Branch VASCEPA 1 2020-0 Yes [id number] TAKE 3 U nivers gram 9-10 CAPSULES ity of capsule 00:00: BY MOUTH [place] EVERY DAY Medical Branch VASCEPA 1 2020-0 Yes [id number] TAKE 3 U nivers gram 9-10 CAPSULES ity of capsule 00:00: BY MOUTH [place] EVERY DAY Medical Branch VASCEPA 1 2020-0 Yes [id number] TAKE 3 U nivers gram 9-10 CAPSULES ity of capsule 00:00: BY MOUTH [place] EVERY DAY Medical Branch azithromyci 2020-0 No mg n 250 mg [...] mg 8-06 tablet 00:00: 00 TAKE 1 1-0 No TABLET 8-06 TWICE DAILY 00:00: UNTIL 00 FINISHED. TAKE 1 1-0 No TABLET 8-06 TWICE DAILY 00:00: UNTIL 00 FINISHED. triamcinolo 2021-0 No % ne 8-04 acetonide 00:00: 0.1 % 00 topical cream Macrobid 2021-0 No 1mg 100 mg 8-04 capsule 00:00: [...] capsule 00:00: 00 Dose 2021-0 No Unknown 8- 00:00: 00 Dose 2021-0 No Unknown 8- 00:00: 00 Dose 1-0 No Unknown 8-04 00:00: 00 Dose 2021-0 No Unknown 8-04 00:00: 00 Tresiba 1-0 No (3 mL) FlexTouch 7-30 U-100 00:00: [...] 300 mg 7-30 capsule 00:00: 00 Tresiba 1-0 No (3 mL) FlexTouch 7-30 U-100 00:00: [...] lisinopril 2021-0 No 1mg 5 mg tablet 30 00:00: 00 glimepiride 2021-0 No 1mg 4 [...] TABLET 7-30 TWICE 00:00: DAILY. 00 Dose 2021-0 No Unknown 7-30 00:00: 00 Dose 2021-0 No Unknown 7-30 00:00: 00 Dose 2021-0 No Unknown 7-30 00:00: 00 Dose 1-0 No Unknown 7-30 00:00: 00 Dose 2021-0 No Unknown 7-30 00:00: 00 TAKE 1 1-0 No TABLET 7-30 DAILY. 00:00: 00 TAKE 1 1-0 No TABLET 7-30 TWICE 00:00: DAILY. 00 Dose 1-0 No Unknown 7-30 00:00: 00 Dose 2021-0 No Unknown 7-30 00:00: 00 Dose 2021-0 No Unknown 7-30 00:00: 00 Dose 2021-0 No Unknown 7-30 00:00: 00 buspirone 2021-0 [...] 10 mg 6-20 tablet 00:00: 00 hydrocortis 1-0 No 1% one 2.5 % 6-20 topical 00:00: cream 00 amitriptyli 1-0 No 1mg ne 10 mg 6-20 tablet 00:00: 00 hydrocortis 1-0 No 1% [...] 00 nded release icosapent 2020-0 2021- No [id number] 3g Take 3 Univers ethyL 6-02 09-10 capsules ity of (VASCEPA) 1 00:00: 00:00 by mouth [place] gram 00 :00 daily. Medical capsule Branch Tresiba 2021-0 No (3 mL) FlexTouch 6-01 [...] tablet 00:00: 00 Dose 2020-0 No Unknown 6-01 00:00: 00 Dose 2020-0 No Unknown 6-01 00:00: 00 Dose 2020-0 No Unknown 6-01 00:00: 00 Tresiba 2020-0 No (3 mL) FlexTouch 6-01 U-100 00:00: insulin 100 00 unit/mL (3 mL) subcutaneou s pen gabapentin 2020-0 No 1mg 800 mg 6-01 tablet 00:00: 00 Dose 2020-0 No Unknown 6-01 00:00: 00 Dose 2020-0 No Unknown 6-01 00:00: 00 Dose 2020-0 No Unknown 6-01 00:00: 00 Lactobacill 2020-0 Yes Take by Uni vers us 5-27 mouth. ity of acidophilus 22:32: [place] (PROBIOTIC 10 Medical ORAL) [place] MULTIVITAMI Yes Take by Uni vers N ORAL 5-27 mouth. ity of 22:32: [place] [address] Medical Branch multivitami Yes Take by Uni vers n with 5-27 mouth. ity of minerals 22:32: [place] (HAIR,SKIN 10 Medical AND NAILS Branch ORAL) Lactobacill Yes Take by Uni vers us 5-27 mouth. ity of acidophilus 17:32: [place] (PROBIOTIC 10 Medical ORAL) Branch MULTIVITAMI Yes Take by Uni vers N ORAL 5-27 mouth. ity of 17:32: [place] [address] Medical Branch multivitami Yes Take by Uni vers n with 5-27 mouth. ity of minerals 17:32: [place] (HAIR,SKIN 10 Medical AND NAILS Branch ORAL) Lactobacill 2020-0 Yes Take by Uni vers us 5-27 mouth. ity of acidophilus 17:32: [place] (PROBIOTIC 10 Medical ORAL) Branch MULTIVITAMI 2020-0 Yes Take by Uni vers N ORAL 5-27 mouth. ity of 17:32: [place] [address] Medical Branch multivitami 202-0 Yes Take by Uni vers n with 5-27 mouth. ity of minerals 17:32: [place] (HAIR,SKIN 10 Medical AND NAILS Branch ORAL) Lactobacill 2020-0 Yes Take by Uni vers us 5-27 mouth. ity of acidophilus 17:32: [place] (PROBIOTIC 10 Medical ORAL) Branch MULTIVITAMI 0 Yes Take by Uni vers N ORAL 5-27 mouth. ity of 17:32: [place] [address] Medical Branch multivitami 2020-0 Yes Take by Uni vers n with 5-27 mouth. ity of minerals 17:32: [place] (HAIR,SKIN 10 Medical AND NAILS Branch ORAL) Lactobacill 0 Yes Take by Uni vers us 5-27 mouth. ity of acidophilus 17:32: [place] (PROBIOTIC 10 Medical ORAL) Branch MULTIVITAMI 0 Yes Take by Uni vers N ORAL 5-27 mouth. ity of 17:32: [place] [address] Medical Branch multivitami 2020-0 Yes Take by Uni vers n with 5-27 mouth. ity of minerals 17:32: [place] (HAIR,SKIN 10 Medical AND NAILS Branch ORAL) Lactobacill 0 Yes Take by Uni vers us 5-27 mouth. ity of acidophilus 17:32: [place] (PROBIOTIC 10 Medical ORAL) Branch MULTIVITAMI 0 Yes Take by Uni vers N ORAL 5-27 mouth. ity of 17:32: [place] [address] Medical Branch multivitami 2020-0 Yes Take by Uni vers n with 5-27 mouth. ity of minerals 17:32: [place] (HAIR,SKIN 10 Medical AND NAILS Branch ORAL) Lactobacill 2020-0 Yes Take by Uni vers us 5-27 mouth. ity of acidophilus 17:32: [place] (PROBIOTIC 10 Medical ORAL) Branch MULTIVITAMI 0 Yes Take by Uni vers N ORAL 5-27 mouth. ity of 17:32: [place] 10 Medical Branch multivitami 202-0 Yes Take by Uni vers n with 5-27 mouth. ity of minerals 17:32: [place] (HAIR,SKIN 10 Medical AND NAILS Branch ORAL) Diflucan 2020-0 No 1mg 150 mg 5-18 tablet 00:00: 00 Diflucan 2020-0 No 1mg 150 mg 5-18 tablet 00:00: 00 Diflucan 1-0 No 1mg 150 mg 5-18 tablet 00:00: 00 Diflucan 2020-0 No 1mg 150 mg 5-18 tablet 00:00: 00 Diflucan 2020-0 No 1mg 150 mg 5-18 tablet 00:00: 00 Diflucan 2020-0 No 1mg 150 mg 5-18 tablet 00:00: 00 Diflucan 2020-0 No 1mg 150 mg 5-18 tablet 00:00: 00 Diflucan 2020-0 No 1mg 150 mg 5-18 tablet 00:00: 00 Diflucan 1-0 No 1mg 150 mg 5-18 tablet 00:00: 00 Diflucan 2020-0 No 1mg 150 mg 5-18 tablet 00:00: 00 Diflucan 2020-0 No 1mg 150 mg 5-18 tablet 00:00: 00 atorvastati 2020-0 No 1mg n 40 mg 5-03 tablet 00:00: 00 gabapentin 1-0 No 1mg 600 mg 5-03 tablet 00:00: 00 atorvastati 2020-0 No 1mg n 40 mg 5-03 tablet 00:00: 00 gabapentin 1-0 No 1mg 600 mg 5-03 tablet 00:00: 00 atorvastati 1-0 No 1mg n 40 mg 5-03 tablet 00:00: 00 gabapentin 2021-0 No 1mg 600 mg 5-03 tablet 00:00: 00 atorvastati 2021-0 No 1mg n 40 mg 5-03 tablet 00:00: 00 gabapentin 2021-0 No 1mg 600 mg 5-03 tablet 00:00: 00 atorvastati 1-0 No 1mg n 40 mg 5-03 tablet 00:00: 00 gabapentin 2021-0 No 1mg 600 mg 5-03 tablet 00:00: 00 atorvastati 1-0 No 1mg n 40 mg 5-03 tablet [...] 5-02 tablet by [facility] 00:00: mouth [address] [place] [address] (two) Medical times Branch daily with meals. glimepiride 2021-0 Yes 4mg Take 1 [facility] 4 mg tablet 5-02 tablet by [facility] of 00:00: mouth [address] [place] [address] (two) Medical times Branch daily with meals. glimepiride 2021-0 Yes 4mg Take 1 [facility] 4 mg tablet 5-02 tablet by [facility] 00:00: mouth [place] (two) Medical times Branch daily with meals. glimepiride 2021-0 Yes 4mg Take 1 [facility] ers 4 mg tablet 5-02 tablet by ity of 00:00: mouth [place] (two) Medical times Branch daily with meals. glimepiride 2021-0 Yes 4mg Take 1 Univ ers 4 mg tablet 5-02 tablet by ity of 00:00: mouth 2 [place] (two) Medical times Branch daily with meals. glimepiride 2021-0 Yes 4mg Take 1 [facility] ers 4 mg tablet 5-02 tablet by ity of 00:00: mouth 2 [place] (two) Medical times Branch daily with meals. glimepiride 2021-0 Yes 4mg Take 1 [facility] ers 4 mg tablet 5-02 tablet by ity of 00:00: mouth 2 00 (two) Medical times Branch daily with meals. insulin Yes [id number] 35U inject 35 [facility] degludec 4-30 Units ity of (TRESIBA 00:[place]: [place] FLE[place] skin 2 Medical U-100) 100 (two) Branch unit/mL (3 times mL) InPn daily. atorvastati Yes 40mg Take 1 Univ ers n 40 mg 4-30 tablet by ity of tablet 00:00: mouth at [place] 00 bedtime. Medical Branch fenofibrate Yes 134mg Take 1 Uni vers micronized 4-30 capsule by ity of 134 mg 00:00: mouth [place] capsule 00 daily. Medical Branch metFORMIN Yes [id number] 1000mg Take 1 [facility] 1,000 mg 4-30 tablet by ity of tablet 00:00: mouth 2 (two) Medical times Branch daily with meals. blood sugar Yes [id number] Use daily [facility] diagnostic 4-30 Dx E11.65 ity of (ONETOUCH 00:00: [place] VERIO TEST 00 Medical STRIPS) Branch strip lancets Yes [id number] Use daily Univers (ONE TOUCH 4-30 Dx E11.65 ity of DELICA) 33 00:00: [place] gauge Misc 00 Medical Branch gabapentin 0 Yes [id number] 600mg Take 1 [facility] 600 mg 4-30 tablet by ity of tablet 00:00: mouth 2 00 (two) Medical times Branch daily. lisinopriL Yes [id number] 2.5mg Take 1 [facility] 2.5 mg 4-30 tablet by ity of tablet 00:00: mouth [place] 00 daily. Medical Branch insulin Yes [id number] 35U inject 35 [facility] degludec 4-30 Units ity of (TRESIBA 00:00: [facility] FLE[facility] 00 skin 2 Medical U-100) 100 (two) Branch unit/mL (3 times mL) InPn daily. atorvastati Yes 40mg Take 1 Univ ers n 40 mg 4-30 tablet by ity of tablet 00:00: mouth at [place] 00 bedtime. Medical Branch fenofibrate Yes 134mg Take 1 Uni vers micronized 4-30 capsule by ity of 134 mg 00:00: mouth [place] capsule 00 daily. Medical Branch metFORMIN Yes [id number] 1000mg Take 1 [facility] 1,000 mg 4-30 tablet by ity of tablet 00:00: mouth 2 (two) Medical times Branch daily with meals. blood sugar Yes [id number] Use daily [facility] diagnostic 4-30 Dx E11.65 ity of (ONETOUCH 00:00: [place] VERIO TEST 00 Medical STRIPS) Branch strip lancets Yes [id number] Use daily [facility] (ONE TOUCH 4-30 Dx E11.65 ity of DELICA) 33 00:00: [place] gauge Misc 00 Medical Branch gabapentin Yes [id number] 600mg Take 1 [facility] 600 mg 4-30 tablet by ity of tablet 00:00: mouth 2 (two) Medical times Branch daily. lisinopriL Yes [id number] 2.5mg Take 1 [facility] 2.5 mg 4-30 tablet by ity of tablet 00:00: mouth 00 daily. Medical Branch insulin Yes [id number] 35U inject 35 [facility] degludec 4-30 Units ity of (TRESIBA 00:00: [place] FLEXT[place] 00 skin 2 Medical U-100) 100 (two) Branch unit/mL (3 times mL) InPn daily. atorvastati Yes 40mg Take 1 [facility] ers n 40 mg 4-30 tablet by ity of tablet 00:00: mouth at [place] 00 bedtime. Medical Branch fenofibrate Yes 134mg Take 1 Uni vers micronized 4-30 capsule by ity of 134 mg 00:00: mouth [place] capsule 00 daily. Medical Branch metFORMIN Yes [id number] 1000mg Take 1 [facility] 1,000 mg 4-30 tablet by ity of tablet 00:00: mouth 2 [place] (two) Medical times Branch daily with meals. blood sugar Yes [id number] Use daily [facility] diagnostic 4-30 Dx E11.65 ity of (ONETOUCH 00:00: [place] VERIO TEST 00 Medical STRIPS) Branch strip lancets 0 Yes [id number] Use daily Univers (ONE TOUCH 4-30 Dx E11.65 ity of [place]) 33 00:00: [facility] 00 Medical Branch gabapentin Yes [id number] 600mg Take 1 [facility] 600 mg 4-30 tablet by ity of tablet 00:00: mouth 2 [place] (two) Medical times Branch daily. lisinopriL Yes [id number] 2.5mg Take 1 [facility] 2.5 mg 4-30 tablet by ity of tablet 00:00: mouth [place] 00 daily. Medical Branch insulin Yes [id number] 35U inject 35 [facility] degludec 4-30 Units ity of (TRESIBA 00:00: [place] FLEXT[place] 00 skin 2 Medical U-100) 100 (two) Branch unit/mL (3 times mL) InPn daily. atorvastati Yes 40mg Take 1 Univ ers n 40 mg 4-30 tablet by ity of tablet 00:00: mouth at [place] 00 bedtime. Medical Branch fenofibrate Yes 134mg Take 1 Uni vers micronized 4-30 capsule by ity of 134 mg 00:00: mouth [place] capsule 00 daily. Medical Branch metFORMIN Yes [id number] 1000mg Take 1 [facility] 1,000 mg 4-30 tablet by ity of tablet 00:00: mouth 2 [place] (two) Medical times Branch daily with meals. blood sugar Yes [id number] Use daily [facility] diagnostic 4-30 Dx E11.65 ity of (ONETOUCH 00:00: [place] VERIO TEST 00 Medical STRIPS) Branch strip lancets Yes [id number] Use daily [facility] (ONE TOUCH 4-30 Dx E11.65 ity of [place]) 33 00:00: [facility] 00 Medical Branch gabapentin Yes [id number] 600mg Take 1 [facility] 600 mg 4-30 tablet by ity of tablet 00:00: mouth 2 [place] 00 (two) Medical times Branch daily. lisinopriL Yes [id number] 2.5mg Take 1 [facility] 2.5 mg 4-30 tablet by ity of tablet 00:00: mouth [place] 00 daily. Medical Branch insulin Yes [id number] 35U inject 35 [facility] degludec 4-30 Units ity of (TRESIBA 00:00: [place] FLEXTOU[place] 00 skin 2 Medical U-100) 100 (two) Branch unit/mL (3 times mL) InPn daily. atorvastati Yes 40mg Take 1 Univ ers n 40 mg 4-30 tablet by ity of tablet 00:00: mouth at [place] 00 bedtime. Medical Branch fenofibrate Yes 134mg Take 1 Uni vers micronized 4-30 capsule by ity of 134 mg 00:00: mouth [place] capsule 00 daily. Medical Branch metFORMIN Yes [id number] 1000mg Take 1 [facility] 1,000 mg 4-30 tablet by ity of tablet 00:00: mouth 2 [place] 00 (two) Medical times Branch daily with meals. blood sugar Yes [id number] Use daily [facility] diagnostic 4-30 Dx E11.65 ity of (ONETOUCH 00:00: [place] VERIO TEST 00 Medical STRIPS) Branch strip lancets Yes [id number] Use daily [facility] (ONE TOUCH 4-30 Dx E11.65 ity of [place]ICA) 33 00:00: [place] gauge Misc 00 Medical Branch gabapentin 0 Yes [id number] 600mg Take 1 [facility] 600 mg 4-30 tablet by ity of tablet 00:00: mouth 2 [place] 00 (two) Medical times Branch daily. lisinopriL Yes [id number] 2.5mg Take 1 [facility] 2.5 mg 4-30 tablet by ity of tablet 00:00: mouth [place] 00 daily. Medical Branch insulin Yes [id number] 35U inject 35 [facility] degludec 4-30 Units ity of (TRESIBA 00:00: [place] FLEXTOUCH 00 skin 2 Medical U-100) 100 (two) Branch unit/mL (3 times mL) InPn daily. atorvastati 0 Yes 40mg Take 1 Univ ers n 40 mg 4-30 tablet by ity of tablet 00:00: mouth at [place] 00 bedtime. Medical Branch fenofibrate Yes 134mg Take 1 Uni vers micronized 4-30 capsule by ity of 134 mg 00:00: mouth [place] capsule 00 daily. Medical Branch metFORMIN Yes [id number] 1000mg Take 1 [facility] 1,000 mg 4-30 tablet by ity of tablet 00:00: mouth 2 (two) Medical times Branch daily with meals. blood sugar Yes [id number] Use daily [facility] diagnostic 4-30 Dx E11.65 ity of (ONETOUCH 00:00: [place] VERIO TEST 00 Medical STRIPS) Branch strip lancets 2020-0 Yes [id number] Use daily Univers (ONE TOUCH 4-30 Dx E11.65 ity of DELICA) 33 00:00: [place] gauge [facility] 00 Medical Branch gabapentin 0 Yes [id number] 600mg Take 1 [facility] 600 mg 4-30 tablet by ity of tablet 00:00: mouth 2 [place] (two) Medical times Branch daily. lisinopriL Yes [id number] 2.5mg Take 1 [facility] 2.5 mg 4-30 tablet by ity of tablet 00:00: mouth 00 daily. Medical Branch insulin Yes [id number] 35U inject 35 [facility] degludec 4-30 Units ity of (TRESIBA 00:00: [place] FLEXT[place] 00 skin 2 Medical U-100) 100 (two) Branch unit/mL (3 times mL) InPn daily. atorvastati Yes 40mg Take 1 Univ ers n 40 mg 4-30 tablet by ity of tablet 00:00: mouth at [place] 00 bedtime. Medical Branch fenofibrate 0 Yes 134mg Take 1 Uni vers micronized 4-30 capsule by ity of 134 mg 00:00: mouth [place] capsule 00 daily. Medical Branch metFORMIN Yes [id number] 1000mg Take 1 Univers 1,000 mg 4-30 tablet by ity of tablet 00:00: mouth 2 [place] (two) Medical times Branch daily with meals. blood sugar Yes [id number] Use daily [facility] diagnostic 4-30 Dx E11.65 ity of (ONETOUCH 00:00: [place] VERIO TEST 00 Medical STRIPS) Branch strip lancets 2020-0 Yes [id number] Use daily Univers (ONE TOUCH 4-30 Dx E11.65 ity of DELICA) 33 00:00: [place] gauge Misc 00 Medical Branch gabapentin 2020-0 Yes [id number] 600mg Take 1 [facility] 600 mg 4-30 tablet by ity of tablet 00:00: mouth 2 [place] 00 (two) Medical times Branch daily. lisinopriL 1-0 Yes [id number] 2.5mg Take 1 Univers 2.5 mg 4-30 tablet by ity of tablet 00:00: mouth 00 daily. Medical Branch glimepiride 1-0 No 1mg 4 mg tablet [...] n on aerosol 00 inhaler ProAir HFA 2021-0 No 12mcg/a 90 3-19 ctuatio mcg/actuati 00:00: [...] unit/mL (3 mL) subcutaneou s pen hydrochloro 0 No 1mg thiazide 25 3-18 mg tablet 00:00: 00 lisinopril 0 No 1mg 5 mg tablet 3-18 00:00: [...] unit/mL (3 mL) subcutaneou s pen hydrochloro 2021-0 No 1mg thiazide 25 3-18 mg tablet [...] glimepiride 2020-0 No 1mg 2 mg tablet 318 00:00: 00 metformin 2020-0 No 1mg 1,000 [...] 2020-0 No Unknown 3-18 00:00: 00 Tresiba 2021-0 No 30(3 FlexTouch 3-18 mL) [...] 100 mg 1-28 capsule 00:00: 00 Victoza 2020-1 No (18 3-Christofer 0.6 2-23 mg/3 mg/0.1 [...] 600 mg 2-23 tablet 00:00: 00 lisinopril 2019- No 1mg [...] 600 mg 2-04 tablet 00:00: 00 lisinopril 2019-1 No 1mg [...] mg 1-05 tablet 00:00: 00 Bactrim DS 2020-1 No 1mg 800 mg-160 1-05 mg tablet 00:00: 00 Pyridium 2020-1 No 1mg 100 mg 1-05 tablet 00:00: 00 Bactrim DS 2020-1 No [...] 1 mg tablet 0-13 00:00: 00 atorvastati 2019-07 No 1mg n 40 mg 0-13 tablet 00:00: 00 gabapentin 2019- No 1mg 600 mg 0-13 tablet 00:00: 00 hydrochloro 2019-07 No 1mg thiazide 25 0-13 mg tablet 00:00: 00 lisinopril 2019-07 No 1mg 5 mg tablet 0-13 00:00: 00 metformin 2019- No 1mg 1,000 mg 0-13 tablet 00:00: 00 glimepiride 2019-07 No 1mg 1 mg tablet 0-13 00:00: 00 atorvastati 2019-07 No 1mg n 40 mg 0-13 tablet [...] 5 mg tablet 0-13 00:00: 00 metformin 2019-07 No 1mg 1,000 mg 0-13 tablet 00:00: 00 glimepiride 2019-07 No 1mg 1 mg tablet 0-13 00:00: 00 atorvastati 2019-07 No 1mg n 40 mg 0-13 tablet 00:00: 00 gabapentin 2019-07 No 1mg 600 mg 0-13 tablet 00:00: 00 hydrochloro 2019-07 No 1mg thiazide 25 0-13 mg tablet 00:00: 00 lisinopril 2019-07 No 1mg 5 mg tablet 0-13 00:00: 00 metformin 2019-07 No 1mg 1,000 mg 0-13 tablet 00:00: 00 glimepiride 2019-07 No 1mg 1 mg tablet 0-13 00:00: 00 atorvastati 2019-07 No 1mg n 40 mg 0-13 tablet 00:00: 00 gabapentin 2019-07 No 1mg 600 mg 0-13 tablet 00:00: 00 hydrochloro 2019-07 No 1mg thiazide 25 0-13 mg tablet 00:00: 00 lisinopril 2019-07 No 1mg 5 mg tablet 0-13 00:00: 00 metformin 2019-07 No 1mg 1,000 mg 0-13 tablet 00:00: [...] atorvastati 2020-0 No 1mg n 40 mg 831 tablet 00:00: 00 atorvastati 2020-0 No 1mg [...] 1mg 5 mg tablet 610 00:00: 00 hydrochloro 2020-0 No 1mg thiazide [...] 1mg 5 mg tablet 610 00:00: 00 hydrochloro 2020-0 No 1mg thiazide [...] Take by Met hodi SUNNY/FA/GUAR 5-14 mouth. [facility] 11:53: Hospita (ONE-A-DAY 29 l WOMEN'S ACTIVE ORAL) MV,CA,MIN/I 2020-0 Yes Take by Met hodi SUNNY/FA/GUAR 5-14 mouth. [facility] 11:53: Hospita (ONE-A-DAY 29 l WOMEN'S ACTIVE ORAL) MV,CA,MIN/I 2020-0 Yes Take by Met hodi SUNNY/FA/GUAR 5-14 mouth. [facility] 11:53: Hospita (ONE-A-DAY 29 l WOMEN'S ACTIVE ORAL) MV,CA,MIN/I 2020-0 Yes Take by Met hodi SUNNY/FA/GUAR 5-14 mouth. [facility] 11:53: Hospita (ONE-A-DAY 29 l WOMEN'S ACTIVE ORAL) MV,CA,MIN/I 2020-0 Yes Take by Met hodi SUNNY/FA/GUAR 5-14 mouth. [facility] 11:53: Hospita (ONE-A-DAY 29 l WOMEN'S ACTIVE ORAL) MV,CA,MIN/I 2020-0 Yes Take by Met hodi SUNNY/FA/GUAR 5-14 mouth. [facility] 11:53: Hospita (ONE-A-DAY 29 l WOMEN'S ACTIVE ORAL) MV,CA,MIN/I 2020-0 Yes Take by Met hodi SUNNY/FA/GUAR 5-14 mouth. [facility] 11:53: Hospita (ONE-A-DAY 29 l WOMEN'S ACTIVE ORAL) MV,CA,MIN/I 2020-0 Yes Take by Met hodi SUNNY/FA/GUAR 5-14 mouth. [facility] 11:53: Hospita (ONE-A-DAY 29 l WOMEN'S ACTIVE ORAL) MV,CA,MIN/I 2020-0 Yes Take by Met hodi SUNNY/FA/GUAR 5-14 mouth. [facility] 11:53: Hospita (ONE-A-DAY 29 l WOMEN'S ACTIVE ORAL) MV,CA,MIN/I 2020-0 Yes Take by Met hodi SUNNY/FA/GUAR 5-14 mouth. [facility] 11:53: Hospita (ONE-A-DAY 29 l WOMEN'S ACTIVE ORAL) MV,CA,MIN/I 2020-0 Yes Take by Met hodi SUNNY/FA/GUAR 5-14 mouth. [facility] 11:53: Hospita (ONE-A-DAY 29 l WOMEN'S ACTIVE ORAL) MV,CA,MIN/I 2020-0 Yes Take by Met hodi SUNNY/FA/GUAR 5-14 mouth. [facility] 11:53: Hospita (ONE-A-DAY 29 l WOMEN'S ACTIVE ORAL) MV,CA,MIN/I 2020-0 Yes Take by Met hodi SUNNY/FA/GUAR 5-14 mouth. [facility] 11:53: Hospita (ONE-A-DAY 29 l WOMEN'S ACTIVE [...] tablet 5-12 00:00: 00 nystatin-tr 2020-0 Yes [id number] Q.25D Apply [facility] iamcinolone 4-[address] (MYCOLOG 00:00: 4 (four) Hospi ta II) 00 times a l 100,000-0.1 day as unit/g-% needed cream (vaginal itching or infection) . To outer vagina nystatin-tr 2020-0 Yes [id number] Q.25D Apply [facility] iamcinolone 4-[address] (MYCOLOG 00:00: 4 (four) Hospi ta II) 00 times a l 100,000-0.1 day as unit/g-% needed cream (vaginal itching or infection) . To outer vagina nystatin-tr 2020-0 Yes [id number] Q.25D Apply [facility] iamcinolone 4-[address] (MYCOLOG 00:00: 4 (four) Hospi ta II) 00 times a l 100,000-0.1 day as unit/g-% needed cream (vaginal itching or infection) . To outer vagina nystatin-tr 2020-0 Yes [id number] Q.25D Apply [facility] iamcinolone 4-[address] (MYCOLOG 00:00: 4 (four) Hospi ta II) 00 times a l 100,000-0.1 day as unit/g-% needed cream (vaginal itching or infection) . To outer vagina nystatin-tr 2020-0 Yes [id number] Q.25D Apply [facility] iamcinolone 4-[address] (MYCOLOG 00:00: 4 (four) Hospi ta II) 00 times a l 100,000-0.1 day as unit/g-% needed cream (vaginal itching or infection) . To outer vagina nystatin-tr 2020-0 Yes [id number] Q.25D Apply [facility]i iamcinolone 4-[address] (MYCOLOG 00:00: 4 (four) Hospi ta II) 00 times a l 100,000-0.1 day as unit/g-% needed cream (vaginal itching or infection) . To outer vagina nystatin-tr 2020-0 Yes [id number] Q.25D Apply [facility] iamcinolone 4-[address] (MYCOLOG 00:00: 4 (four) Hospi ta II) 00 times a l 100,000-0.1 day as unit/g-% needed cream (vaginal itching or infection) . To outer vagina nystatin-tr 2020-0 Yes [id number] Q.25D Apply [facility] iamcinolone 4-[address] (MYCOLOG 00:00: 4 (four) Hospi ta II) 00 times a l 100,000-0.1 day as unit/g-% needed cream (vaginal itching or infection) . To outer vagina nystatin-tr 2020-0 Yes [id number] Q.25D Apply [facility] iamcinolone 4-[address] (MYCOLOG 00:00: 4 (four) Hospi ta II) 00 times a l 100,000-0.1 day as unit/g-% needed cream (vaginal itching or infection) . To outer vagina nystatin-tr 2020-0 Yes [id number] Q.25D Apply [facility] iamcinolone 4-[address] (MYCOLOG 00:00: 4 (four) Hospi ta II) 00 times a l 100,000-0.1 day as unit/g-% needed cream (vaginal itching or infection) . To outer vagina nystatin-tr 2020-0 Yes [id number] Q.25D Apply [facility] iamcinolone 4-[address] (MYCOLOG 00:00: 4 (four) Hospi ta II) 00 times a l 100,000-0.1 day as unit/g-% needed cream (vaginal itching or infection) . To outer vagina nystatin-tr 2020-0 Yes [id number] Q.25D Apply [facility] iamcinolone 4-[address] (MYCOLOG 00:00: 4 (four) Hospi ta II) 00 times a l 100,000-0.1 day as unit/g-% needed cream (vaginal itching or infection) . To outer vagina nystatin-tr 2020-0 Yes [id number] Q.25D Apply [facility] iamcinolone 4-[address] [...] subcutaneou s pen injector HEParin 2020-0 Yes [id number] Q7D [facility] ally (porcine) 3-24 st injection 17:00: Hospita 20,000 00 l Units HEParin 2020-0 Yes [id number] Q7D Meth ally (porcine) 3-24 st injection 17:00: Hospita 20,000 00 l Units HEParin 2020-0 Yes [id number] Q7D Meth ally (porcine) 3-24 st injection 17:00: Hospita 20,000 00 l Units HEParin 2020-0 Yes [id number] Q7D Meth ally (porcine) 3-24 st injection 17:00: Hospita 20,000 00 l Units HEParin 2020-0 Yes [id number] Q7D Meth ally (porcine) 3-24 st injection 17:00: Hospita 20,000 00 l Units HEParin 2020-0 Yes [id number] Q7D Meth ally (porcine) 3-24 st injection 17:00: Hospita 20,000 00 l Units HEParin 2020-0 Yes [id number] Q7D Meth ally (porcine) 3-24 st injection 17:00: Hospita 20,000 00 l Units HEParin 2020-0 Yes [id number] Q7D Meth ally (porcine) 3-24 st injection 17:00: Hospita 20,000 00 l Units HEParin 2020-0 Yes [id number] Q7D Meth ally (porcine) 3-24 st injection 17:00: Hospita 20,000 00 l Units HEParin 2020-0 Yes [id number] Q7D Meth ally (porcine) 3-24 st injection 17:00: Hospita 20,000 00 l Units HEParin 2020-0 Yes [id number] Q7D Meth ally (porcine) 3-24 st injection 17:00: Hospita 20,000 00 l Units HEParin 2020-0 Yes [id number] Q7D Meth ally (porcine) 3-24 st injection 17:00: Hospita 20,000 00 l Units HEParin 2020-0 Yes [id number] Q7D Meth ally (porcine) 3-24 st injection 17:00: Hospita 20,000 00 l Units conjugated 2020-0 Yes [id number] Apply 0.5 [facility] estrogens 3-[address] (Premarin) 00:00: vaginally [facility] 0.625 00 either l mg/gram internally vaginal (applicato cream r) or with finger to outer vagina twice weekly at night conjugated 2020-0 Yes [id number] Apply 0.5 [facility] estrogens 3-[address] (Premarin) 00:00: vaginally [facility] 0.625 00 either l mg/gram internally vaginal (applicato cream r) or with finger to outer vagina twice weekly at night conjugated 2020-0 Yes [id number] Apply 0.5 [facility] estrogens 3-[address] (Premarin) 00:00: vaginally [facility] 0.625 00 either l mg/gram internally vaginal (applicato cream r) or with finger to outer vagina twice weekly at night conjugated 2020-0 Yes [id number] Apply 0.5 [facility] estrogens 3-[address] (Premarin) 00:00: vaginally [facility] 0.625 00 either l mg/gram internally vaginal (applicato cream r) or with finger to outer vagina twice weekly at night conjugated 2020-0 Yes [id number] Apply 0.5 [facility] estrogens 3-[address] (Premarin) 00:00: vaginally [facility] 0.625 00 either l mg/gram internally vaginal (applicato cream r) or with finger to outer vagina twice weekly at night conjugated 2020-0 Yes [id number] Apply 0.5 [facility] estrogens 3-[address] (Premarin) 00:00: vaginally [facility] 0.625 00 either l mg/gram internally vaginal (applicato cream r) or with finger to outer vagina twice weekly at night conjugated 2020-0 Yes [id number] Apply 0.5 [facility] estrogens 3-[address] (Premarin) 00:00: vaginally [facility] 0.625 00 either l mg/gram internally vaginal (applicato cream r) or with finger to outer vagina twice weekly at night conjugated 2020-0 Yes [id number] Apply 0.5 [facility] estrogens 3-[address] (Premarin) 00:00: vaginally [facility] 0.625 00 either l mg/gram internally vaginal (applicato cream r) or with finger to outer vagina twice weekly at night conjugated 2020-0 Yes [id number] Apply 0.5 [facility] estrogens 3-[address] (Premarin) 00:00: vaginally [place] [facility] 0.625 00 either l mg/gram internally vaginal (applicato cream r) or with finger to outer vagina twice weekly at night conjugated 2020-0 Yes [id number] Apply 0.5 [facility] estrogens 3-[address] (Premarin) 00:00: vaginally [facility] 0.625 00 either l mg/gram internally vaginal (applicato cream r) or with finger to outer vagina twice weekly at night conjugated 2020-0 Yes [id number] Apply 0.5 [facility] estrogens 3-[address] (Premarin) 00:00: vaginally [facility] 0.625 00 either l mg/gram internally vaginal (applicato cream r) or with finger to outer vagina twice weekly at night conjugated 2020-0 Yes [id number] Apply 0.5 [facility] estrogens 3-[address] (Premarin) 00:00: vaginally [facility] 0.625 00 either l mg/gram internally vaginal (applicato cream r) or with finger to outer vagina twice weekly at night conjugated 2020-0 Yes [id number] Apply 0.5 [facility] estrogens 3-[address] [...] vagina once or twice daily. amb custom 2019-0 Yes [facility] compound 3- vaginal st 00:00: cream: 6% Hospita 00 gabapentin l , 2% Lidocaine, 2 % baclofen in water washable based. Apply 0.5 gram to outer vagina once or twice daily. amb custom 0 Yes [facility] compound 3- vaginal st 00:00: cream: 6% Hospita 00 gabapentin l , 2% Lidocaine, 2 % baclofen in water washable based. Apply 0.5 gram to outer vagina once or twice daily. amb custom 0 Yes [facility] compound 3- vaginal st 00:00: cream: 6% Hospita 00 gabapentin l , 2% Lidocaine, 2 % baclofen in water washable based. Apply 0.5 gram to outer vagina once or twice daily. amb custom 2019-0 Yes [facility] compound 3- vaginal [...] once or twice daily. FREESTYLE 2020-0 Yes [id number] 1{each} 1 Each [facility] BRENDA 14 3-03 every 14 ity of DAY SENSOR 00:00: (fourteen) [place] 00 days. Medical Branch FREESTYLE 2020-0 Yes [id number] 1{each} 1 Each [facility] BRENDA 14 3-03 daily. ity of DAY READER 00:00: [place] [address] Medical Branch FREESTYLE 2020-0 Yes [id number] 1{each} 1 Each [facility] BRENDA 14 3-03 every 14 ity of DAY SENSOR 00:00: (fourteen) [place] Kit 00 days. Medical Branch FREESTYLE 2020-0 Yes [id number] 1{each} 1 Each [facility] BRENDA 14 3-03 daily. ity of DAY READER 00:00: [place] Misc 00 Medical Branch FREESTYLE 2020-0 Yes [id number] 1{each} 1 Each [facility] BRENDA 14 3-03 every 14 ity of DAY SENSOR 00:00: (fourteen) [place] Kit 00 days. Medical Branch FREESTYLE 2020-0 Yes [id number] 1{each} 1 Each [facility] BRENDA 14 3-03 daily. ity of DAY READER 00:00: [facility] 00 Medical Branch FREESTYLE 2020-0 Yes [id number] 1{each} 1 Each [facility] BRENDA 14 3-03 every 14 ity of DAY SENSOR 00:00: (fourteen) [place] Kit 00 days. Medical Branch FREESTYLE 2020-0 Yes [id number] 1{each} 1 Each [facility] BRENDA 14 3-03 daily. ity of DAY READER 00:00: [facility] 00 Medical Branch FREESTYLE 2020-0 Yes [id number] 1{each} 1 Each [facility] BRENDA 14 3-03 every 14 ity of DAY SENSOR 00:00: (fourteen) [place] Kit 00 days. Medical Branch FREESTYLE 2020-0 Yes [id number] 1{each} 1 Each [facility] BERNDA 14 3-03 daily. ity of DAY READER 00:00: [facility] 00 Medical Branch FREESTYLE 2020-0 Yes [id number] 1{each} 1 Each [facility] BRENDA 14 3-03 every 14 ity of DAY SENSOR 00:00: (fourteen) [place] Kit 00 days. Medical Branch FREESTYLE 2020-0 Yes [id number] 1{each} 1 Each [facility] BRENDA 14 3-03 daily. ity of DAY READER 00:00: [facility] 00 Medical Branch FREESTYLE 2020-0 Yes [id number] 1{each} 1 Each [facility] BRENDA 14 3-03 every 14 ity of DAY SENSOR 00:00: (fourteen) [place] Kit 00 days. Medical Branch FREESTYLE 2020-0 Yes [id number] 1{each} 1 Each [facility] BRENDA 14 3-03 daily. ity of DAY READER 00:00: [facility] 00 Medical Branch Ozempic 2020-0 No (5)/125 [...] mg 1-16 tablet 00:00: 00 Flagyl 500 2019-1 No 1mg mg tablet 2-30 00:00: 00 Flagyl 500 2018-1 No 1mg mg tablet 2-30 00:00: 00 Flagyl 500 2018-1 No 1mg mg tablet 2-30 00:00: 00 Flagyl 500 2018-1 No 1mg mg tablet 2- 00:00: 00 Flagyl 500 2019-1 No 1mg mg tablet 2-30 00:00: 00 [...] tablet 2-30 00:00: 00 traMADol 2018-07 Yes [id number] 50mg Take 1 Uni vers (ULTRAM) 50 2-28 tablet by ity of mg tablet 00:00: mouth [place] 00 every 6 Medical (six) Branch hours as needed for Pain (scale 7-10). ondansetron 2018-07 Yes [id number] 4mg Take 1 [facility] (ZOFRAN) 4 2-28 tablet by ity of mg tablet 00:00: mouth [place] 00 every 8 Medical (eight) Branch hours as needed for Nausea and Vomiting (N/V). ondansetron 2018-07 Yes [id number] 4mg Take 1 [facility] (ZOFRAN) 4 2-28 tablet by ity of mg tablet 00:00: mouth [place] 00 every 8 Medical (eight) Branch hours as needed for Nausea and Vomiting (N/V). ondansetron 2018-07 Yes [id number] 4mg Take 1 [facility] (ZOFRAN) 4 2-28 tablet by ity of mg tablet 00:00: mouth [place] 00 every 8 Medical (eight) Branch hours as needed for Nausea and Vomiting (N/V). ondansetron 2018-07 Yes [id number] 4mg Take 1 [facility] (ZOFRAN) 4 2-28 tablet by ity of mg tablet 00:00: mouth [place] 00 every 8 Medical (eight) Branch hours as needed for Nausea and Vomiting (N/V). ondansetron 2018-07 Yes [id number] 4mg Take 1 [facility] (ZOFRAN) 4 2-28 tablet by ity of mg tablet 00:00: mouth [place] 00 every 8 Medical (eight) Branch hours as needed for Nausea and Vomiting (N/V). ondansetron 2018-07 Yes [id number] 4mg Take 1 [facility] (ZOFRAN) 4 2-28 tablet by ity of mg tablet 00:00: mouth [place] 00 every 8 Medical (eight) Branch hours as needed for Nausea and Vomiting (N/V). ondansetron 2018-07 Yes [id number] 4mg Take 1 [facility] (ZOFRAN) 4 2-28 tablet by ity of mg tablet 00:00: mouth [place] 00 every 8 Medical (eight) Branch hours as needed for Nausea and Vomiting (N/V). traMADol 2018-07- No [id number] 50mg Take 1 [facility] (ULTRAM) 50 [...] 2-19 tablet,exte 00:00: nded 00 release ibuprofen 2018-1 No 1mg 800 mg 2-19 tablet 00:00: 00 Contrave 8 2019-1 No 1mg mg-90 mg 2-19 tablet,exte 00:00: nded 00 release triamcinolo 2018-1 No 1% ne 0-16 acetonide [...] 1mg mg capsule 0-16 00:00: 00 triamcinolo 2018-07 No 1% ne 0-16 acetonide 00:00: 0.1 % 00 topical ointment ketoconazol 2018-07 No 1% e 2 % 0-16 shampoo 00:00: 00 Xenical 120 2018-07 No 1mg mg capsule 0-16 00:00: 00 Xenical 120 2018-07 No 1mg mg capsule 0-16 00:00: 00 Polytrim 2018-07 No 11 10,000 0-14 mg/mL unit-1 00:00: mg/mL eye 00 drops Polytrim 2018-07 No 11 10,000 0-14 mg/mL unit-1 00:00: mg/mL eye 00 drops Polytrim 2018-07 No 11 10,000 0-14 mg/mL unit-1 00:00: mg/mL eye 00 drops Polytrim 2018-07 No 11 10,000 0-14 mg/mL unit-1 00:00: mg/mL eye 00 drops Polytrim 2018-07 No 11 10,000 0-14 mg/mL unit-1 00:00: mg/mL eye 00 drops Polytrim 2018-07 No 11 10,000 0-14 mg/mL unit-1 00:00: mg/mL eye 00 drops Polytrim 2018-07 No 11 10,000 0-14 mg/mL unit-1 00:00: mg/mL eye 00 drops Polytrim 2018-07 No 11 10,000 0-14 mg/mL unit-1 00:00: mg/mL eye 00 drops Polytrim 2018-07 No 11 10,000 0-14 mg/mL unit-1 00:00: mg/mL eye 00 drops Polytrim 2018-07 No 11 10,000 0-14 mg/mL unit-1 00:00: mg/mL eye 00 drops Polytrim 2018-07 No 11 10,000 0-14 mg/mL [...] 500 mg 0-03 tablet 00:00: 00 clotrimazol 2018-1 No 1% e 1 % 0-01 vaginal 00:00: cream 00 clotrimazol 2018- No 1% e 1 [...] lisinopril 2019-0 No 1mg 5 mg tablet 9- 00:00: 00 metformin 2019-0 No 1mg 1,000 [...] mg capsule 00:00: 00 hydrOXYzine 2019-0 Yes [id number] 10mg Take 1 [facility] 10 mg 9-13 tablet by ity of tablet 00:00: [facility] every 6 Medical (six) Branch hours. hydrOXYzine 2019-0 Yes [id number] 10mg Take 1 [facility] 10 mg 9-13 tablet by ity of tablet 00:00: [facility] every 6 Medical (six) Branch hours. hydrOXYzine 2018-0 Yes [id number] 10mg Take 1 [facility] 10 mg 9-13 tablet by ity of tablet 00:00: mouth [place] 00 every 6 Medical (six) Branch hours. hydrOXYzine 2019-0 Yes [id number] 10mg Take 1 [facility] 10 mg 9-13 tablet by ity of tablet 00:00: mouth [place] 00 every 6 Medical (six) Branch hours. hydrOXYzine 2019-0 Yes [id number] 10mg Take 1 [facility] 10 mg 9-13 tablet by ity of tablet 00:00: mouth [place] 00 every 6 Medical (six) Branch hours. hydrOXYzine 2019-0 Yes [id number] 10mg Take 1 [facility] 10 mg 9-13 tablet by ity of tablet 00:00: mouth [place] 00 every 6 Medical (six) Branch hours. hydrOXYzine 2019-0 Yes [id number] 10mg Take 1 [facility] 10 mg 9-13 [...] lisinopril 2019-0 No 1mg 5 mg tablet 5- 00:00: 00 fluconazole 2019-0 No 1mg 150 mg 5-22 tablet 00:00: 00 metformin 2019-0 No 1mg 1,000 mg 5-22 tablet 00:00: 00 lisinopril 2019-0 No 1mg 5 mg tablet 5 00:00: 00 fluconazole 2019-0 No 1mg 150 mg 5-22 tablet 00:00: 00 metformin 2019-0 No 1mg 1,000 mg 5-22 tablet 00:00: 00 lisinopril 2019-0 No 1mg 5 mg tablet 522 00:00: 00 fluconazole 2019-0 No 1mg 150 mg 5-22 tablet 00:00: 00 metformin 2019-0 No 1mg 1,000 mg 5-22 tablet 00:00: 00 lisinopril 2019-0 No 1mg 5 mg tablet 5 00:00: 00 fluconazole 2019-0 No 1mg 150 mg 5-22 tablet 00:00: 00 metformin 2019-0 No 1mg 1,000 mg 5-22 tablet 00:00: 00 lisinopril 2019-0 No 1mg 5 mg tablet 22 00:00: 00 fluconazole 2019-0 No 1mg 150 mg 5-22 tablet 00:00: 00 metformin 2019-0 No 1mg 1,000 mg 5-22 tablet 00:00: 00 lisinopril 2019-0 No 1mg 5 mg tablet 22 00:00: 00 fluconazole 2019-0 No 1mg 150 [...] 500 mg 2-04 capsule 00:00: 00 lisinopril 2017-1 No 1mg 5 [...] tablet 08-08 00:00: 00 Zofran 4 mg 1 No 1mg tablet 08-08 00:00: 00 lisinopril 2018-1 No 1mg 5 mg tablet 08-08 00:00: 00 Zofran 4 mg 2017-1 No 1mg tablet 08-08 00:00: 00 lisinopril 2017-1 No 1mg 5 mg tablet 08-08 00:00: 00 Zofran 4 mg 2017- No 1mg tablet 08-08 00:00: 00 lisinopril 2017-1 No 1mg 5 mg tablet 08-08 00:00: 00 Zofran 4 mg 2017- No 1mg tablet 08-08 00:00: 00 lisinopril 2017- No 1mg 5 mg tablet 08-08 00:00: 00 Zofran 4 mg 2017- No 1mg tablet 08-08 00:00: 00 lisinopril 2017- No 1mg 5 mg tablet 08-08 00:00: 00 Zofran 4 mg 2017- No 1mg tablet 08-08 00:00: 00 metformin [...] 00 trazodone 2018-0 No 12mg 100 mg -27 tablet 00:00: 00 trazodone 2018-0 No 12mg [...] Lexapro 20 2018-0 No 15mg mg tablet 8- 00:00: 00 Abilify 5 2018-0 No 1mg mg tablet 8 00:00: 00 trazodone 2018-0 No 12mg 100 mg 8-16 tablet 00:00: 00 Lexapro 20 2018-0 No 15mg mg tablet 8 00:00: 00 Abilify 5 2018-0 No 1mg mg tablet 8 00:00: 00 trazodone 2018-0 No 12mg 100 mg 8-16 tablet 00:00: 00 Lexapro 20 2018-0 No 15mg mg tablet 8 00:00: 00 Abilify 5 2018-0 No 1mg mg tablet 8 00:00: 00 trazodone 2018-0 No 12mg 100 mg 8-16 tablet 00:00: 00 Lexapro 20 2018-0 No 15mg mg tablet 8 00:00: 00 Abilify 5 2018-0 No 1mg mg tablet 8 00:00: 00 trazodone 2018-0 No 12mg 100 mg 8-16 tablet 00:00: 00 Lexapro 20 2018-0 No 15mg mg tablet 8 00:00: 00 Abilify 5 2018-0 No 1mg mg tablet 8 00:00: 00 trazodone 2018-0 No 12mg 100 mg 8-16 tablet 00:00: 00 Lexapro 20 2018-0 No 15mg mg tablet 8- 00:00: 00 Abilify 5 2018-0 No 1mg mg tablet 8- 00:00: 00 trazodone 2018-0 No 12mg 100 mg 8-16 tablet 00:00: 00 Lexapro 20 2018-0 No 15mg mg tablet 8- 00:00: 00 Abilify 5 2018-0 No 1mg [...] Abilify 5 2018-0 No 1mg mg tablet -08 00:00: [...] No 1mg mg tablet - 00:00: 00 promethazin 2017-1 No 10mg/5 e-DM 6.25 2-04 mL mg-15 mg/5 00:00: mL syrup 00 prednisone 2017- No 1mg 20 mg 2-04 tablet 00:00: 00 loratadine 2017-1 No 1mg 10 mg 2-04 tablet 00:00: 00 metformin 2017-1 No 1mg 1,000 mg 2-04 tablet 00:00: 00 promethazin 2017-1 No 10mg/5 e-DM 6.25 2-04 mL mg-15 mg/5 00:00: mL syrup 00 prednisone 2017- No 1mg 20 mg 2-04 tablet 00:00: 00 loratadine 2017-1 No 1mg 10 mg 2-04 tablet 00:00: 00 metformin 2017-1 No 1mg 1,000 mg 2-04 tablet 00:00: 00 promethazin 2017-1 No 10mg/5 e-DM [...] 10 mg 2-04 tablet 00:00: 00 metformin 2017- No 1mg 1,000 mg 2-04 tablet 00:00: [...] 20 mg 2-04 tablet 00:00: 00 prednisone 2016- No 1mg 20 mg 2-04 tablet 00:00: 00 loratadine 2016- No 1mg 10 mg 2-04 tablet 00:00: 00 metformin 2016- No 1mg 1,000 mg 2-04 tablet 00:00: 00 promethazin 2016- No 10mg/5 e-DM 6.25 2-04 mL mg-15 mg/5 00:00: mL syrup 00 loratadine 2016- No 1mg 10 mg 2-04 tablet 00:00: 00 metformin 2016- No 1mg 1,000 mg 2-04 tablet 00:00: 00 Ginalify 5 2016-0 No 1mg mg tablet 04-07 00:00: 00 Lexapro 20 2017-0 No 1mg mg tablet 04-07 00:00: 00 buspirone 2017-0 No 1mg 15 mg 9- tablet 00:00: 00 trazodone 2017-0 No 2mg 100 mg - tablet 00:00: 00 Abilify 5 2017-0 No 1mg mg tablet 04-07 00:00: 00 Lexapro 20 2017-0 No 1mg mg tablet 04-07 00:00: 00 buspirone 2017-0 No 1mg 15 mg 9-28 tablet 00:00: 00 trazodone 2017-0 No 2mg 100 mg 9- tablet 00:00: 00 Abilify 5 2017-0 No [...] mg 03-24 tablet 00:00: 00 Abilify 5 2017-0 No [...] mg 7- tablet 00:00: 00 Abilify 5 2017-0 No 1mg mg tablet 02-03 00:00: 00 Lexapro 20 2017-0 No 1mg mg tablet 02-03 00:00: 00 buspirone 2017-0 No 1mg 15 mg 7- tablet 00:00: 00 trazodone 2017-0 No 2mg 100 mg 7- tablet 00:00: 00 Abilify 5 2017-0 No 1mg mg tablet 02-03 00:00: 00 Lexapro 20 2017-0 No 1mg mg tablet 02-03 00:00: 00 Abilify 5 2017-0 No 1mg mg tablet 02-03 00:00: 00 Lexapro 20 2017-0 No 1mg mg tablet 02-03 00:00: 00 buspirone 2017-0 No 1mg 15 mg 7- tablet 00:00: 00 buspirone 2017-0 No 1mg 15 mg 7- tablet 00:00: 00 trazodone 2017-0 No 2mg 100 mg 7- tablet 00:00: 00 trazodone 2017-0 No 2mg 100 mg 7- tablet 00:00: 00 Abilify 5 2016-0 No 1mg mg tablet 02-03 00:00: 00 Lexapro 20 2017-0 No 1mg mg tablet 02-03 00:00: 00 buspirone 2017-0 No 1mg 15 mg 7- tablet 00:00: 00 trazodone 2017-0 No 2mg 100 mg 7- tablet 00:00: 00 Abilify 5 2017-0 No 1mg mg tablet 00:00: 00 Lexapro 20 2017-0 No 1mg [...] Abilify 5 2017-0 No 1mg mg tablet 6 00:00: 00 Lexapro 20 2017-0 No 1mg mg tablet 6 00:00: 00 buspirone 2017-0 No 1mg 15 mg 6-22 tablet 00:00: 00 trazodone 2017-0 No 2mg 100 mg 6-22 tablet 00:00: 00 Abilify 5 2017-0 No 1mg mg tablet 6 00:00: 00 Lexapro 20 2017-0 No 1mg mg tablet 6 00:00: 00 buspirone 2017-0 No 1mg 15 [...] Abilify 5 2017-0 No 1mg mg tablet 6 00:00: 00 Lexapro 20 2017-0 No 1mg mg tablet 6 00:00: 00 buspirone 2017-0 No 1mg 15 mg 6-22 tablet 00:00: 00 trazodone 2017-0 No 2mg 100 mg 6-22 tablet 00:00: 00 Abilify 5 2017-0 No 1mg mg tablet 6 00:00: 00 Lexapro 20 2017-0 No 1mg mg tablet 6 00:00: 00 buspirone 2017-0 No 1mg 15 mg 6-22 tablet 00:00: 00 trazodone 2017-0 No 2mg 100 mg 6-22 tablet 00:00: 00 Abilify 5 2017-0 No 1mg mg tablet 6 00:00: 00 Lexapro 20 2017-0 No 1mg [...] Abilify 5 2017-0 No 1mg mg tablet 6 00:00: 00 Lexapro 20 2017-0 No 1mg mg tablet 6 00:00: 00 buspirone 2017-0 No 1mg 15 [...] 00 metformin 2017-0 No 1mg 1,000 mg 5- tablet 00:00: 00 metformin 2017-0 No 1mg 1,000 mg 5- tablet 00:00: 00 metformin 2017-0 No 1mg 1,000 mg 5- tablet 00:00: 00 Abilify 5 2017-0 No 1mg mg tablet 4- 00:00: 00 Lexapro 20 2017-0 No 15mg mg tablet 4- 00:00: 00 trazodone 2017-0 No 1mg 150 mg 4- tablet 00:00: 00 Abilify 5 2017-0 No 1mg mg tablet 4- 00:00: 00 Lexapro 20 2017-0 No 15mg mg tablet 4- 00:00: 00 trazodone 2017-0 No 1mg 150 mg 4- tablet 00:00: 00 Abilify 5 2017-0 No 1mg mg tablet 4- 00:00: 00 Lexapro 20 2017-0 No 15mg mg tablet 4- 00:00: 00 trazodone 2017-0 No 1mg 150 mg 4- tablet 00:00: 00 Abilify 5 2016-0 No 1mg mg tablet 4- 00:00: 00 Lexapro 20 2017-0 No 15mg mg tablet 4- 00:00: 00 trazodone 2017-0 No 1mg 150 mg 4-11 tablet 00:00: 00 Abilify 5 2016-0 No 1mg mg tablet 4- 00:00: 00 Lexapro 20 2017-0 No 15mg mg tablet 4-11 00:00: 00 trazodone 2017-0 No 1mg 150 mg 4- tablet 00:00: 00 Abilify 5 2017-0 No 1mg mg tablet 4- 00:00: 00 Lexapro 20 2017-0 No 15mg [...] Abilify 5 2017-0 No 1mg mg tablet 307 00:00: 00 trazodone 2017-0 No 1mg 150 mg 3-07 tablet 00:00: 00 Lexapro 20 2017-0 No 15mg mg tablet 307 00:00: 00 Abilify 5 2017-0 No 1mg [...] 1-05 mg tablet 00:00: 00 Abilify 5 2015-07 No [...] HCl 25 mg 2-08 tablet 00:00: 00 Abilif2015-07 No 1mg mg tablet 2-08 00:00: 00 Abilify 2015-07 No 1mg mg tablet 2-08 00:00: 00 Lexapro 2015-07 No 1mg mg tablet 2-08 00:00: 00 trazodone 2015-07 No 1mg 150 mg 2-08 tablet 00:00: 00 hydroxyzine 2015-07 No 12mg HCl 25 mg 2-08 tablet 00:00: 00 2015-07 No 1mg mg tablet 2-08 00:00: 00 2015-07 No 1mg mg tablet 2-08 00:00: 00 lif2015-07 No 1mg mg tablet 2-08 00:00: 00 [...] HCl 25 mg 2-08 tablet 00:00: 00 Abilif2015-07 No 1mg mg tablet 2-08 00:00: 00 [...] HCl 25 mg 2-08 tablet 00:00: 00 lif2015-07 No 1mg mg tablet 2-08 00:00: 00 [...] Lexapro 20 2015-07 No 1mg mg tablet 1 00:00: 00 trazodone 2015-07 No 1mg 150 mg 1-03 tablet 00:00: 00 hydroxyzine 2015-07 No 12mg HCl 25 mg 1-03 tablet 00:00: 00 Lexapro 20 2015-07 No 1mg mg tablet 1 00:00: 00 trazodone 2015-07 No 1mg 150 mg 1-03 tablet 00:00: 00 hydroxyzine 2015-07 No 12mg HCl 25 mg 1-03 tablet 00:00: 00 Lexapro 20 2015-07 No 1mg mg tablet 1- 00:00: 00 trazodone 2015-07 No 1mg 150 mg 1-03 tablet 00:00: 00 hydroxyzine 2015-07 No 12mg HCl 25 mg 1-03 tablet 00:00: 00 Lexapro 20 2015-07 No 1mg mg tablet 1 00:00: 00 trazodone 2015-07 No 1mg 150 mg 1-03 tablet 00:00: 00 hydroxyzine 2015-07 No 12mg HCl 25 mg 1-03 tablet 00:00: 00 Lexapro 20 2015-07 No 1mg mg tablet 1- 00:00: 00 trazodone 2015-07 No 1mg 150 mg 1-03 tablet 00:00: 00 hydroxyzine 2015-07 No 12mg HCl 25 mg 1-03 tablet 00:00: 00 Lexapro 20 2015-07 No 1mg mg tablet 1 00:00: 00 trazodone 2015-07 No 1mg 150 mg 1-03 tablet 00:00: 00 hydroxyzine 2015-07 No 12mg HCl 25 mg 1-03 tablet 00:00: 00 Lexapro 2015-07 No 1mg mg tablet 1 00:00: 00 trazodone 2015-07 No 1mg 150 mg 1-03 tablet 00:00: 00 hydroxyzine 2015-07 No 12mg HCl 25 mg 1-03 tablet 00:00: 00 Lexapro 2015-07 No 1mg mg tablet 1 00:00: 00 trazodone 2015-07 No 1mg 150 mg 1-03 tablet 00:00: 00 hydroxyzine 2015-07 No 12mg HCl 25 mg 1-03 tablet 00:00: 00 Lexapro 2015-07 No 1mg mg tablet 1 00:00: 00 trazodone 2015-07 No 1mg 150 mg 1-03 tablet 00:00: 00 hydroxyzine 2015-07 No 12mg HCl 25 mg 1-03 tablet 00:00: 00 Lexapro 2015-07 No 1mg mg tablet 1 00:00: 00 trazodone 2015-07 No 1mg 150 mg 1-03 tablet 00:00: 00 hydroxyzine 2015-07 No 12mg HCl 25 mg 1-03 tablet 00:00: 00 Lexapro 2015-07 No 1mg mg tablet 1- 00:00: 00 trazodone 2015-07 No 1mg 150 mg 1-03 tablet 00:00: 00 hydroxyzine 2015-07 No 12mg HCl 25 mg 1-03 tablet 00:00: 00 Lexapro 20 2015-07 No 1mg mg tablet 0- 00:00: 00 trazodone 2015-07 No 51mg 100 mg 0-11 tablet 00:00: 00 Lexapro 2015-07 No 1mg mg tablet 0-11 00:00: 00 trazodone 2015-07 No 51mg 100 mg 0-11 tablet 00:00: 00 Lexapro 20 2015-1 No 1mg mg tablet 0-11 00:00: 00 trazodone 2015-1 No 51mg 100 mg 0-11 tablet 00:00: 00 Lexapro 20 2015- No 1mg mg tablet 0-11 00:00: 00 trazodone 2015-1 No 51mg 100 mg 0-11 tablet 00:00: 00 Lexapro 20 2015- No 1mg mg tablet 0-11 00:00: 00 trazodone 2015-1 No 51mg 100 mg 0-11 tablet 00:00: 00 Lexapro 20 2015- No 1mg mg tablet 0-11 00:00: 00 trazodone 2015-1 No 51mg 100 mg 0-11 tablet 00:00: 00 Lexapro 20 2015- No 1mg mg tablet 0-11 00:00: 00 trazodone 2015-1 No 51mg 100 mg 0-11 tablet 00:00: 00 Lexapro 20 2015- No 1mg mg tablet 0-11 00:00: 00 trazodone 2015-1 No 51mg 100 mg 0-11 tablet 00:00: 00 Lexapro 20 2015- No 1mg mg tablet 0-11 00:00: 00 trazodone 2015- No 51mg 100 mg 0-11 tablet 00:00: 00 Lexapro 20 2015- No 1mg mg tablet 0-11 00:00: 00 trazodone 2015-1 No 51mg 100 mg 0-11 tablet 00:00: 00 Lexapro 20 2015- No 1mg mg tablet 0-11 00:00: 00 trazodone 2015-1 No 51mg 100 mg 0-11 tablet 00:00: 00 paroxetine 2015-0 No 1mg 20 mg 9-26 tablet 00:00: 00 paroxetine 2016-0 No 1mg 20 mg 9-26 tablet 00:00: 00 paroxetine 2015-0 No 1mg 20 mg 9-26 tablet 00:00: 00 paroxetine 2015-0 No 1mg 20 mg 9-26 tablet 00:00: 00 paroxetine 2015-0 No 1mg 20 mg 9-26 tablet 00:00: 00 paroxetine 2015-0 No 1mg 20 mg 9-26 tablet 00:00: 00 paroxetine 2015-0 No 1mg 20 mg 9-26 tablet 00:00: [...] doxepin 25 2015-0 No 13mg mg capsule 128 00:00: 00 Effexor XR 2016-0 No 1mg [...] 1-14 capsule,ext 00:00: ended 00 release glimepiride 2015-0 No 1mg 4 mg tablet 07-14 00:00: 00 metformin 2016-0 No 1mg 1,000 mg -04 tablet 00:00: 00 simvastatin 2016-0 No 1mg 20 mg -04 tablet 00:00: 00 simvastatin 2016-0 No 1mg [...] mg 1-04 tablet 00:00: 00 Vistaril 50 2014-07 No 1mg mg capsule 2 00:00: 00 Vistaril 50 2014-07 No 1mg mg capsule 2 00:00: 00 Vistaril 50 1 No 1mg mg capsule 2 00:00: 00 Vistaril 50 2014-07 No 1mg mg capsule 2 00:00: 00 Vistaril 50 1 No 1mg mg capsule 2 00:00: 00 Vistaril 50 1 No 1mg mg capsule 2- 00:00: 00 Vistaril 50 1 No 1mg mg capsule 2 00:00: 00 Vistaril 50 1 No 1mg mg capsule 2- 00:00: 00 Vistaril 50 1 No 1mg mg capsule 2 00:00: 00 Vistaril 50 1 No 1mg mg capsule 2- 00:00: 00 Vistaril 50 2014-07 No 1mg mg capsule 2- 00:00: 00 Paxil 20 mg 2015-1 No 1mg tablet 08-02 00:00: 00 Paxil 20 mg 2014-1 No 1mg tablet 08-02 00:00: 00 Paxil 20 mg 2014-1 No 1mg tablet 08-02 00:00: 00 Paxil 20 mg 2014-1 No 1mg tablet 08-02 00:00: 00 Paxil 20 mg 2014-1 No 1mg tablet 08-02 00:00: 00 Paxil 20 mg 2014-1 No 1mg tablet 08-02 00:00: 00 Paxil 20 mg 2014-1 No 1mg tablet 08-02 00:00: 00 Paxil 20 mg 2014-1 No 1mg tablet 08-02 00:00: 00 Paxil 20 mg 2014-1 No 1mg tablet 08-02 00:00: 00 Paxil 20 mg 2014-1 No 1mg tablet 08-02 00:00: 00 Paxil 20 mg 2014-1 No 1mg tablet 08-02 00:00: 00 Paxil [...] glimepiride 2015-0 No 1mg 4 mg tablet 7- 00:00: 00 metformin 2015-0 No 1mg 1,000 mg 7- tablet 00:00: 00 lisinopril 2015-0 No 1mg 5 mg tablet 7- 00:00: 00 glimepiride 2015-0 No 1mg 4 mg tablet 7- 00:00: 00 metformin 2015-0 No 1mg 1,000 [...] lisinopril 2015-0 No 1mg 5 mg tablet 1 00:00: 00 metformin 2015-0 No 1mg 1,000 mg 1-28 tablet 00:00: 00 glimepiride 2014-0 No 1mg 4 mg tablet 1 00:00: 00 metformin 2015-0 No 1mg 1,000 mg - tablet 00:00: 00 Vistaril 50 2014-0 No 1mg mg capsule 08-07 00:00: 00 Vistaril 50 2014-0 No 1mg mg capsule 08-07 00:00: 00 lisinopril 2014-0 No 1mg 5 mg tablet 08-07 00:00: 00 metformin 2015-0 No 1mg 1,000 mg - tablet 00:00: 00 glimepiride 2015-0 No 1mg 4 mg tablet 08-07 00:00: 00 metformin 2015-0 No 1mg 1,000 mg - tablet 00:00: 00 Vistaril 50 2014-0 No 1mg mg capsule 08-07 00:00: 00 Vistaril 50 2014-0 No 1mg mg capsule 08-07 00:00: 00 lisinopril 2014-0 No 1mg 5 mg tablet 08-07 00:00: 00 lisinopril 2015-0 No 1mg 5 mg tablet 08-07 00:00: 00 metformin 2015-0 No 1mg 1,000 mg 08-07 tablet 00:00: 00 glimepiride 2014-0 No 1mg 4 mg tablet 08-07 00:00: 00 metformin 2015-0 No 1mg 1,000 mg 08-07 tablet 00:00: 00 Vistaril 50 2014-0 No 1mg mg capsule 08-07 00:00: 00 Vistaril 50 2014-0 No 1mg mg capsule 08-07 00:00: 00 metformin 2015-0 No 1mg [...] 1mg mg capsule 08-07 00:00: 00 glimepiride 2015-0 No 1mg 4 mg tablet 08-07 00:00: 00 lisinopril 2015-0 No 1mg 5 mg tablet 08-07 00:00: 00 metformin 2015-0 No 1mg 1,000 mg - tablet 00:00: 00 glimepiride 2015-0 No 1mg 4 mg tablet 08-07 00:00: 00 metformin 2015-0 No 1mg 1,000 mg - tablet 00:00: 00 Vistaril 50 2014-0 No 1mg mg capsule 08-07 00:00: 00 Vistaril 50 2014-0 No 1mg mg capsule 08-07 00:00: 00 metformin 2015-0 No 1mg [...] [place] Strips ( [facility] TOUCH [facility] COMBO) [facility]- Yes [facility] Blood 2-14 ity of Glucose 00:00: [place] Strips ( Medical TOUCH Branch COMBO) [facility] & 2013- Yes [facility] Blood 2-14 ity of Glucose 00:00: [place] Strips ( Medical TOUCH Branch COMBO) [facility] & 2013- Yes [facility] Blood 2-14 ity of Glucose 00:00: [place] Strips ( Medical TOUCH Branch COMBO) [facility] & 2013- Yes [facility] Blood 2-14 ity of Glucose 00:00: [place] Strips ( Medical TOUCH Branch COMBO) [facility] & 2013- Yes [facility] Blood 2-14 ity of Glucose 00:00: [place] Strips (ONE 00 Medical TOUCH Branch COMBO) [facility] Lancets & 2013-1 Yes Univers Blood 2-14 ity of Glucose 00:00: [place] Strips (ONE 00 Medical TOUCH Branch COMBO) Cmpk Blood-Gluco Yes Univer s se Meter 6-05 [...] Filled Immunization Date Status Comments [facility] e Immunization Name Name Leonarda FRAZIERID-19 2021-07-24 Completed Vaccine 00:00:00 Moderna COVID-19 2021-07-24 [...] 2020-05-21 Completed University o f Polysaccharide, 00:00:00 [place] [facility] PPSV23 (PNEUMOVAX) Branch TDAP 2020-05-21 Completed University of 00:00:00 [facility] Pneumococcal 2020-05-21 Completed University o f Polysaccharide, 00:00:00 [place] [facility] ical PPSV23 (PNEUMOVAX) Branch TDAP 2020-05-21 Completed University of 00:00:00 [facility] Pneumococcal 2020-05-21 Completed University o f Polysaccharide, 00:00:00 [place] [facility] ical PPSV23 (PNEUMOVAX) Branch TDAP 2020-05-21 Completed University of 00:00:00 [facility] Pneumococcal 2020-05-21 Completed University o f Polysaccharide, 00:00:00 [place] [facility] PPSV23 (PNEUMOVAX) Branch TDAP 2020-05-21 Completed University of 00:00:00 [facility] Pneumococcal 2020-05-21 Completed University o f Polysaccharide, 00:00:00 [place] [facility] PPSV23 (PNEUMOVAX) Branch TDAP 2020-05-21 Completed University of 00:00:00 [facility] Pneumococcal 2020-05-21 Completed University o f Polysaccharide, 00:00:00 [place] [facility] PPSV23 (PNEUMOVAX) Branch TDAP 2020-05-21 Completed University of 00:00:00 [facility] Pneumococcal 2020-05-21 Completed University o f Polysaccharide, 00:00:00 [place] [facility] PPSV23 (PNEUMOVAX) Branch TDAP 2020-05-21 Completed University of 00:00:00 [facility] MMR 2013-07-25 Completed University of 00:00:00 [facility] MMR 2013-07-25 Completed University of 00:00:00 [facility] MMR 2013-07-25 Completed University of 00:00:00 [facility] MMR 2013-07-25 Completed University of 00:00:00 [facility] MMR 2013-07-25 Completed University of 00:00:00 [facility] MMR 2013-07-25 Completed University of 00:00:00 [facility] MMR 2013-07-25 Completed University of 00:00:00 [facility] TDAP 2013-05-21 Completed University of 00:00:00 [facility] TDAP 2013-05-21 Completed University of 00:00:00 [facility] TDAP 2013-05-21 Completed University of 00:00:00 [facility] TDAP 2013-05-21 Completed University of 00:00:00 [facility] Branch TDAP 2013-05-21 Completed University of 00:00:00 [facility] Branch TDAP 2013-05-21 Completed University of 00:00:00 [facility] Branch TDAP 2013-05-21 Completed University of 00:00:00 [facility] Influenza Virus 2013-03-19 Completed Universit y of Vaccine 00:00:00 [facility] Influenza Virus 2013-03-19 Completed Universit y of Vaccine 00:00:00 [facility] Influenza Virus 2013-03-19 Completed Universit y of Vaccine 00:00:00 [facility] Influenza Virus 2013-03-19 Completed Universit y of Vaccine 00:00:00 [facility] Influenza Virus 2013-03-19 Completed Universit y of Vaccine 00:00:00 [facility] Influenza Virus 2013-03-19 Completed Universit y of Vaccine 00:00:00 [facility] Influenza Virus 2013-03-19 Completed Universit y of Vaccine 00:00:00 [facility] Rubella 2008-04-17 Completed University of 00:00:00 [facility] Rubella 2008-04-17 Completed University of 00:00:00 [facility] Branch Rubella 2008-04-17 Completed University of 00:00:00 [facility] Branch Rubella 2008-04-17 Completed University of 00:00:00 [facility] Branch Rubella 2008-04-17 Completed University of 00:00:00 [facility] Rubella 2008-04-17 Completed University of 00:00:00 [facility] Rubella 2008-04-17 Completed University of 00:00:00 [facility] Td 2004-07-11 Completed University of 00:00:00 [facility] Td 2004-07-11 Completed University of 00:00:00 [facility] Branch Td 2004-07-11 Completed University of 00:00:00 [facility] Td 2004-07-11 Completed University of 00:00:00 [facility] Td 2004-07-11 Completed University of 00:00:00 [facility] Td 2004-07-11 Completed University of 00:00:00 [facility] Td 2004-07-11 Completed University of 00:00:00 [facility] Vital Signs Vital Name Observation Time Observation Value Comments Source Systolic blood 2022-06-22 04:59:00 110 mm[Hg] [facility]iver [facility] of pressure [facility] Diastolic blood 2022-06-22 04:59:00 70 mm[Hg] [facility] Heart rate 2022-06-22 04:59:00 107 /min [facility] Respiratory rate 2022-06-22 04:59:00 22 /min [facility] Oxygen saturation in 2022-06-22 04:59:00 97 /min [facility] Arterial blood by [facility] [employer] [facility] Body temperature 2022-06-21 23:26:00 37.28 Lorenza [facility] Body height 2022-06-21 23:26:00 162.6 cm [facility] Body weight 2022-06-21 23:26:00 98.431 kg [facility] BMI 2022-06-21 23:26:00 37.25 kg/m2 [facility] Systolic blood 2021-10-17 02:05:00 117 mm[Hg] [facility] Diastolic blood 2021-10-17 02:05:00 63 mm[Hg] [facility] Heart rate 2021-10-17 02:05:00 76 /min [facility] Respiratory rate 2021-10-17 02:05:00 18 /min [facility] Oxygen saturation in 2021-10-17 02:05:00 98 /min [facility] Arterial blood by [facility] [employer] [facility] Body temperature 2021-10-16 22:30:00 37.33 Lorenza [facility] Body weight 2021-10-16 21:38:00 103.42 kg [facility] BMI 2021-10-16 21:38:00 37.94 kg/m2 [facility] Systolic blood 2021-09-22 17:00:00 108 mm[Hg] [facility] Diastolic blood 2021-09-22 17:00:00 77 mm[Hg] [facility] Heart rate 2021-09-22 17:00:00 90 /min [facility] Oxygen saturation in 2021-09-22 17:00:00 97 /min [facility] Arterial blood by [facility] [employer] [facility] Pulse oximetry [facility] Respiratory rate 2021-09-22 15:00:00 18 /min [facility] Body temperature 2021-09-22 14:52:00 37.11 Lorenza [facility] Body weight 2021-09-22 14:52:00 103.42 kg [facility] BMI 2021-09-22 14:52:00 37.94 kg/m2 [facility] Systolic blood 2021-06-18 12:00:00 142 mm[Hg] [facility] Diastolic blood 2021-06-18 12:00:00 94 mm[Hg] [facility] Heart rate 2021-06-18 12:00:00 98 /min [facility] Body temperature 2021-06-18 12:00:00 36.56 Lorenza [facility] Respiratory rate 2021-06-18 12:00:00 13 /min [facility] Oxygen saturation in 2021-06-18 12:00:00 95 /min [facility]ter[facility] blood by [facility] Pulse oxim[facility] Branch Body height 2021-06-18 10:37:00 165.1 cm [facility] Body weight 2021-06-18 10:37:00 107.502 kg [facility] BMI 2021-06-18 10:37:00 39.44 kg/m2 [facility] Systolic blood 2021-05-31 01:34:00 139 mm[Hg] [facility] Diastolic blood 2021-05-31 01:34:00 90 mm[Hg] [facility] Heart rate 2021-05-31 01:34:00 112 /min [facility] Respiratory rate 2021-05-31 01:34:00 20 /min [facility] Oxygen saturation in 2021-05-31 01:34:00 98 /min [facility]ter[facility] blood by [facility] P[facility] Body weight 2021-05-30 21:47:00 107.502 kg [facility] BMI 2021-05-30 21:47:00 40.68 kg/m2 General acute hospital BP Systolic 2022-06-18 10:43:00 118 mm[Hg] BP [...] Clinician Source Performed POCT GLUCOSE 2022-06-22 03:40:00 Katelyn Buckner [facility] (AUTOMATED) [facility] BASIC METABOLIC PANEL 2022-06-22 02:40:00 Katelyn Buckner [facility] (NA, K, CL, CO2, Medical Branch GLUCOSE, BUN, CREATININE, CA) POCT GLUCOSE(AGE 2022-06-22 02:39:00 [facility] POCT GLUCOSE 2022-06-22 02:38:00 Katelyn Buckner [facility] (AUTOMATED) [facility] VBG+VCOOX+NA+K+GLU+CA2+ 2022-06-22 02:08:00 Katelyn Buckner [facility] POCT GLUCOSE 2022-06-22 01:41:00 [facility] ([facility] XR CHEST 2 VW 2022-06-22 00:47:37 Dudley [facility] PHOSPHORUS 2022-06-21 23:49:00 [facility] MAGNESIUM 2022-06-21 23:49:00 Dudley [facility] TROPONIN I 2022-06-21 23:49:00 [facility] BASIC METABOLIC PANEL 2022-06-21 23:49:00 Katelyn Buckner [facility] (NA, K, CL, CO2, Medical Branch GLUCOSE, BUN, CREATININE, CA) CBC WITH DIFF 2022-06-21 23:49:00 Katelyn Buckner [facility] GLYCOSYLATED HEMOGLOBIN 2022-06-21 23:49:00 Katelyn Buckner [facility] (A1C) [facility] URINALYSIS 2022-06-21 23:49:00 [facility] RAPID STREP SCREEN FOR 2022-06-21 23:49:00 Katelyn Buckner [facility] GROUP A [facility] [place] RAPID INFLUENZA A/B 2022-06-21 23:49:00 Katelyn Buckner [facility] N-TERMINAL PRO-BNP 2022-06-21 23:49:00 [facility] (ID NOW RAPID 2022-06-21 23:49:00 Katelyn Buckner [facility] TESTING) Medical Branch CONSENT/REFUSAL FOR 2022-06-21 23:19:40 [facility], [facility] Name [facility] Branch POCT GLUCOSE 2021-10-17 01:49:00 Beatriz Eduardo [facility] (AUTOMATED) [facility] POCT GLUCOSE(AGE 2021-10-17 00:41:00 Beatriz Eduardo [facility] >30DAYS) [facility] POCT GLUCOSE 2021-10-17 00:40:00 Beatriz Eduardo [facility] (AUTOMATED) [facility] BLOOD CULTURE SCREEN 2021-10-16 23:26:[address] [facility] BLOOD CULTURE SCREEN 2021-10-16 23:03:[address] [facility] TROPONIN I 2021-10-16 23:03:00 Beatriz Eduardo [facility] COMP. METABOLIC PANEL 2021-10-16 23:03:00 Beatriz Eduardo [facility] ([id number]) [facility] CBC WITH DIFF 2021-10-16 23:03:00 Beatriz Eduardo [facility] URINALYSIS 2021-10-16 23:03:00 Beatriz Eduardo [facility] N-TERMINAL PRO-BNP 2021-10-16 23:03:00 Beatriz Eduardo [facility] acute hospital LACTIC ACID WHOLE BLOOD 2021-10-16 23:01:00 Beatriz Eduardo [facility] CT ABDOMEN PELVIS WO 2021-10-16 22:40:13 Beatriz Eduardo [facility] CONTRAST [facility] POCT TEST 2021-10-16 22:34:00 Beatriz Eduardo [facility] CONSENT/REFUSAL FOR 2021-10-16 21:34:04 Doctor Unassigned, No [facility] Name Medical Branch CT ABDOMEN PELVIS WO 2021-09-22 15:59:44 Jn Gallagher [facility] POCT TEST 2021-09-22 15:18:00 Jn Gallagher [facility] acute hospital COMP. METABOLIC PANEL 2021-09-22 15:16:00 Jn Gallagher [facility] ([id number]) Medical Branch CBC WITH DIFF 2021-09-22 15:16[facility] 2021-09-22 14:58:00 [facility] CONSENT/REFUSAL FOR 2021-09-22 14:47:03 Doctor Unassigned, No [facility] DIAGNOSIS AND TREATMENT Name [facility] [place] POCT GLUCOSE 2021-06-18 13:04:00 Fozia Jang [facility] (AUTOMATED) [facility] CT ABDOMEN PELVIS WO 2021-06-18 12:58:31 Fozia Jang [facility] POCT TEST 2021-06-18 11:06:00 Fozia Jang [facility] CREATINE KINASE 2021-06-18 10:50:00 Lionel Park [facility] COMP. METABOLIC PANEL 2021-06-18 10:50:00 Fozia Jang [facility] ([id number]) [facility] [place] CBC WITH DIFF 2021-06-18 10:50:00 Fozia Jang [facility] URINALYSIS 2021-06-18 10:50:00 Fozia Jang [facility] RAPID INFLUENZA A/B 2021-06-18 10:50:00 Fozia Jang [facility] COVID-19 (ID NOW RAPID 2021-06-18 10:50:00 Fozia Jang [facility] TESTING) Medical Branch NOTICE OF PRIVACY 2021-06-18 10:24:00 Doctor Unassigned, No [facility] PRACTICES Name Medical Branch CONSENT/REFUSAL FOR 2021-06-18 10:21:45 Doctor Unassigned, No [facility] Name [facility] Branch CT ABDOMEN PELVIS W 2021-05-30 23:52:43 Mary Espinosa [facility] CONTRAST [facility] CT HEAD WO CONTRAST 2021-05-30 23:52:13 Mary Espinosa [facility] XR CHEST 1 VW 2021-05-30 22:38:06 Mary Espinosa [facility] XR HAND 3+ VW LEFT 2021-05-30 22:38:[address] [facility] FOREARM 2 VW LEFT 2021-05-30 22:28:08 [facility] CONSENT/REFUSAL FOR 2021-05-30 21:39:04 Doctor Unassigned, No Un [facility] DIAGNOSIS AND TREATMENT Name Medical Branch [id number] Ecg Routine Ecg 2015-12-20 00:00:00 W/least 12 Lds W/i r 83.71 2010-08-05 00:00:00 [facility] 77.98 2010-08-05 00:00:00 [facility] Plan of Care Planned Activity Planned Date Details Comments Source Future Scheduled 2022-06-30 COVID-[address] [facility] Test 13:24:39 (#1) [code = COVID-19 VACCINE (#1)] Future Scheduled 2022-06-30 [facility] 13:24:39 screening (procedure) [code = 950087479] Future Scheduled 2022-06-30 [facility] 13:24:39 malignant neoplasm of cervix (procedure) [code = 926688875] Future Scheduled 2022-06-30 BREAST CANCER [facility] Test 13:24:39 SCREENING [code = BREAST CANCER SCREENING] Future Scheduled 2022-06-30 [facility]ZA [facility]ACCINE [facility] 13:24:39 [code = INFLUENZA VACCINE] Future Scheduled 2022-06-30 COVID-[address] [facility] Test 13:24:39 (#1) [code = COVID-19 VACCINE (#1)] Future Scheduled 2022-06-30 [facility] 13:24:39 screening (procedure) [code = 975053080] Future Scheduled 2022-06-30 [facility] Test 13:24:39 malignant neoplasm of cervix (procedure) [code = 457301096] Future Scheduled 2022-06-30 BREAST CANCER [facility] Test 13:24:39 SCREENING [code = BREAST CANCER SCREENING] Future Scheduled 2022-06-30 INFLUENZA VACCINE [facility] Test 13:24:39 [code = INFLUENZA VACCINE] Future Scheduled 2022-06-30 COVID-19 VACCINE Methodi [facility]3] Test 13:24:39 (#1) [code = COVID-19 VACCINE (#1)] Future Scheduled 2022-06-30 [facility] 13:24:39 screening (procedure) [code = 314283165] Future Scheduled 2022-06-30 [facility] Test 13:24:39 malignant neoplasm of cervix (procedure) [code = 382696231] Future Scheduled 2022-06-30 BREAST CANCER [facility] Test 13:24:39 SCREENING [code = BREAST CANCER SCREENING] Future Scheduled 2022-06-30 INFLUENZA VACCINE Method [facility] Test 13:24:39 [code = INFLUENZA VACCINE] Future Scheduled 2022-05-12 HEPATITIS B [facility] 14:10:29 VACCINES (1 of 3 - 3-dose series) [code = HEPATITIS B VACCINES (1 of 3 - 3-dose series)] Future [facility]uled 2022-05-12 [facility] (#1) [code = COVID-19 VACCINE (#1)] Future Scheduled 2022-05-12 [facility] 14:10:29 screening (procedure) [code = 036750601] Future Scheduled 2022-05-12 [facility] 14:10:29 malignant neoplasm of cervix (procedure) [code = 021369977] Future Scheduled 2022-05-12 BRE[facility] CANCER [facility] Test 14:10:29 SCREENING [code = BREAST CANCER SCREENING] Future Scheduled 2022-05-12 INFLUENZA VACCINE Method [facility] Test 14:10:29 [code = INFLUENZA VACCINE] Future Scheduled 2022-05-12 [facility] 14:10:29 VACCINES (1 of 3 - 3-dose series) [code = HEPATITIS B VACCINES (1 of 3 - 3-dose series)] Future Scheduled 2022-05-12 COVID-19 VACCINE Methodi [facility]3] Test 14:10:29 (#1) [code = COVID-19 VACCINE (#1)] Future Scheduled 2022-05-12 [facility] 14:10:29 screening (procedure) [code = 826980233] Future Scheduled 2022-05-12 [facility] 14:10:29 malignant neoplasm of cervix (procedure) [code = 060796451] Future Scheduled 2022-05-12 BREAST CANCER [facility] Test 14:10:29 SCREENING [code = BREAST CANCER SCREENING] Future Scheduled 2022-05-12 INFLUENZA VACCINE [facility] Test 14:10:29 [code = INFLUENZA VACCINE] Future Scheduled 2022-05-12 [facility] B [facility] 14:10:29 VACCINES (1 of 3 - 3-dose series) [code = HEPATITIS B VACCINES (1 of 3 - 3-dose series)] Future Scheduled 2022-05-12 [facility]:10[facility] (#1) [code = COVID-19 VACCINE (#1)] Future Scheduled 2022-05-12 [facility] 14:10:29 screening (procedure) [code = 357184495] Future Scheduled 2022-05-12 [facility] 14:10:29 malignant neoplasm of cervix (procedure) [code = 350099693] Future Scheduled 2022-05-12 BRE[facility] CANCER [facility] Test 14:10:29 SCREENING [code = BREAST CANCER SCREENING] Future Scheduled 2022-05-12 INFLUENZA VACCINE Method [facility] Test 14:10:29 [code = INFLUENZA VACCINE] Future Scheduled 2022-05-12 [facility] B [facility] 14:10:29 VACCINES (1 of 3 - 3-dose series) [code = HEPATITIS B VACCINES (1 of 3 - 3-dose series)] Future Scheduled 2022-05-12 [facility] 14:10:29 (#1) [code = COVID-19 VACCINE (#1)] Future Scheduled 2022-05-12 [facility] 14:10:29 screening (procedure) [code = 285623024] Future Scheduled 2022-05-12 [facility] 14:10:29 malignant neoplasm of cervix (procedure) [code = 935245392] Future Scheduled 2022-05-12 [facility]ER [facility] 14:10:29 SCREENING [code = BREAST CANCER SCREENING] Future Scheduled 2022-05-12 INFLUENZA VACCINE [facility] Test 14:10:29 [code = INFLUENZA VACCINE] Future Scheduled 2022-04-12 [facility] 08:53:27 screening (procedure) [code = 977781685] Future Scheduled 2022-04-12 [facility] 08:53:27 malignant neoplasm of cervix (procedure) [code = 929265275] Future Scheduled 2022-04-12 [facility]ER [facility] 08:53:27 SCREENING [code = BREAST CANCER SCREENING] Future Scheduled 2022-04-12 INFLUENZA VACCINE [facility] Test 08:53:27 [code = INFLUENZA VACCINE] Future Scheduled 2022-04-12 [facility] 08:53:27 VACCINES (1 of 3 - 3-dose series) [code = HEPATITIS B VACCINES (1 of 3 - 3-dose series)] Future Scheduled 2022-04-12 [facility] 08:53:27 (#1) [code = COVID-19 VACCINE (#1)] Future Scheduled 2022-03-16 [facility] B [facility] 11:35:00 VACCINES (1 of 3 - 3-dose series) [code = HEPATITIS B VACCINES (1 of 3 - 3-dose series)] Future Scheduled 2022-03-16 [facility]:35[facility]00 (#1) [code = COVID-19 VACCINE (#1)] Future Scheduled 2022-03-16 [facility] 11:35:00 screening (procedure) [code = 810025098] Future Scheduled 2022-03-16 [facility] 11:35:00 malignant neoplasm of cervix (procedure) [code = 848932639] Future Scheduled 2022-03-16 BRE[facility]CER [facility] Test 11:35:00 SCREENING [code = BREAST CANCER SCREENING] Future Scheduled 2022-03-16 INFLUENZA VACCINE [facility] Test 11:35:00 [code = INFLUENZA VACCINE] Future Scheduled 2022-03-16 [facility] 11:35:00 VACCINES (1 of 3 - 3-dose series) [code = HEPATITIS B VACCINES (1 of 3 - 3-dose series)] Future Scheduled 2022-03-16 [facility] 11:35:00 (#1) [code = COVID-19 VACCINE (#1)] Future Scheduled 2022-03-16 [facility] 11:35:00 screening (procedure) [code = 046977359] Future Scheduled 2022-03-16 Screening for [facility] Test 11:35:00 malignant neoplasm of cervix (procedure) [code = 920540521] Future Scheduled 2022-03-16 BREAST CANCER [facility] Test 11:35:00 SCREENING [code = BREAST CANCER SCREENING] Future Scheduled 2022-03-16 INFLUENZA VACCINE Method [facility] Test 11:35:00 [code = INFLUENZA VACCINE] Future Scheduled 2022-03-09 [facility] 12:08:14 VACCINES (1 of 3 - 3-dose series) [code = HEPATITIS B VACCINES (1 of 3 - 3-dose series)] Future Scheduled 2022-03-09 COVID-19 VACCINE [facility] Test 12:08:14 (#1) [code = COVID-19 VACCINE (#1)] Future Scheduled 2022-03-09 [facility] 12:08:14 screening (procedure) [code = 407853443] Future Scheduled 2022-03-09 Screening for [facility] Test 12:08:14 malignant neoplasm of cervix (procedure) [code = 365667315] Future Scheduled 2022-03-09 BREAST CANCER [facility] Test 12:08:14 SCREENING [code = BREAST CANCER SCREENING] Future Scheduled 2022-03-09 INFLUENZA VACCINE Method [facility] Test 12:08:14 [code = INFLUENZA VACCINE] Future Scheduled 2022-03-09 [facility] 12:08:14 VACCINES (1 of 3 - 3-dose series) [code = HEPATITIS B VACCINES (1 of 3 - 3-dose series)] Future Scheduled 2022-03-09 [facility] 12:08:14 (#1) [code = COVID-19 VACCINE (#1)] Future Scheduled 2022-03-09 [facility] 12:08:14 screening (procedure) [code = 208994453] Future Scheduled 2022-03-09 [facility] 12:08:14 malignant neoplasm of cervix (procedure) [code = 342450376] Future Scheduled 2022-03-09 [facility] 12:08:14 SCREENING [code = BREAST CANCER SCREENING] Future Scheduled 2022-03-09 INFLUENZA VACCINE [facility] Test 12:08:14 [code = INFLUENZA VACCINE] Future Scheduled 2022-03-09 [facility] 12:08:14 VACCINES (1 of 3 - 3-dose series) [code = HEPATITIS B VACCINES (1 of 3 - 3-dose series)] Future Scheduled 2022-03-09 [facility] 12:08:14 (#1) [code = COVID-19 VACCINE (#1)] Future Scheduled 2022-03-09 [facility] 12:08:14 screening (procedure) [code = 772564662] Future Scheduled 2022-03-09 [facility] 12:08:14 malignant neoplasm of cervix (procedure) [code = 982720120] Future Scheduled 2022-03-09 [facility] 12:08:14 SCREENING [code = BREAST CANCER SCREENING] Future Scheduled 2022-03-09 INFLUENZA VACCINE [facility] Test 12:08:14 [code = INFLUENZA VACCINE] Goal Plan of Care Note [code = 02550-0] Goal Plan of Care Note [code = 67750-9] Goal Plan of Care Note [code = 87825-0] Goal Plan of Care Note [code = 67813-3] Goal Plan of Care Note [code = 26895-6] Goal Plan of Care Note [code = 66585-0] Goal Plan of Care Note [code = 01044-5] Goal Plan of Care Note [code = 18095-9] Goal Plan of Care Note [code = 03204-5] Goal Plan of Care Note [code = 20625-6] Goal Plan of Care Note [code = 73364-7] Goal Plan of Care Note [code = 35230-1] Goal Plan of Care Note [code = 95575-5] Goal Plan of Care Note [code = 63860-5] Goal Plan of Care Note [code = 60602-4] Goal Plan of Care Note [code = 87434-1] Goal Plan of Care Note [code = 29451-6] Goal Plan of Care Note [code = 08604-3] Goal Plan of Care Note [code = 21120-0] Goal Plan of Care Note [code = 64957-5] Goal Plan of Care Note [code = 09169-7] Goal Plan of Care Note [code = 86175-0] Goal Plan of Care Note [code = 59211-7] Goal Plan of Care Note [code = 09838-0] Goal Plan of Care Note [code = 92919-9] Goal Plan of Care Note [code = 84959-4] Goal Plan of Care Note [code = 49047-3] Goal Plan of Care Note [code = 19024-6] Goal Plan of Care Note [code = 05023-9] Goal Plan of Care Note [code = 10182-4] Goal Plan of Care Note [code = 29738-1] Goal Plan of Care Note [code = 37131-1] Goal Plan of Care Note [code = 64612-7] Goal Plan of Care Note [code = 97599-2] Goal Plan of Care Note [code = 47785-3] Goal Plan of Care Note [code = 22582-4] Goal Plan of Care Note [code = 31914-4] Goal Plan of Care Note [code = 91815-0] Goal Plan of Care Note [code = 02664-4] Goal Plan of Care Note [code = 21126-2] Goal Plan of Care Note [code = 88330-4] Goal Plan of Care Note [code = 06737-4] Goal Plan of Care Note [code = 36188-7] Goal Plan of Care Note [code = 73713-6] Goal Plan of Care Note [code = 97415-7] Goal Plan of Care Note [code = 44085-0] Goal Plan of Care Note [code = 74180-0] Goal Plan of Care Note [code = 20236-1] Goal Plan of Care Note [code = 74439-4] Goal Plan of Care Note [code = 54632-2] Goal Plan of Care Note [code = 60643-8] Goal Plan of Care Note [code = 44351-9] Goal Plan of Care Note [code = 22154-2] Goal Plan of Care Note [code = 08320-4] Goal Plan of Care Note [code = 25224-5] Goal Plan of Care Note [code = 42136-8] Goal Plan of Care Note [code = 14870-9] Goal Plan of Care Note [code = 96957-9] Goal Plan of Care Note [code = 86505-3] Goal Plan of Care Note [code = 42208-7] Goal Plan of Care Note [code = 76678-7] Goal Plan of Care Note [code = 68646-7] Goal Plan of Care Note [code = 52632-7] Goal Plan of Care Note [code = 90144-3] Goal Plan of Care Note [code = 19544-1] Goal Plan of Care Note [code = 49842-5] Goal Plan of Care Note [code = 81843-6] Goal Plan of Care Note [code = 24683-8] Goal Plan of Care Note [code = 52868-4] Goal Plan of Care Note [code = 44198-9] Goal Plan of Care Note [code = 68381-3] Goal Plan of Care Note [code = 17679-0] Goal Plan of Care Note [code = 83177-3] Goal Plan of Care Note [code = 18679-6] Goal Plan of Care Note [code = 75960-6] Goal Plan of Care Note [code = 11727-3] Goal Plan of Care Note [code = 50543-1] Goal Plan of Care Note [code = 83148-7] Goal Plan of Care Note [code = 02619-0] Goal Plan of Care Note [code = 53388-4] Goal Plan of Care Note [code = 48251-7] Goal Plan of Care Note [code = 40473-6] Goal Plan of Care Note [code = 32463-7] Goal Plan of Care Note [code = 38039-4] Goal Plan of Care Note [code = 60609-3] Goal Plan of Care Note [code = 52661-0] Goal Plan of Care Note [code = 65429-7] Goal Plan of Care Note [code = 51853-4] Goal Plan of Care Note [code = 28142-2] Goal Plan of Care Note [code = 40844-9] Goal Plan of Care Note [code = 19102-0] Goal Plan of Care Note [code = 68594-4] Goal Plan of Care Note [code = 12301-7] Goal Plan of Care Note [code = 02622-3] Goal Plan of Care Note [code = 33517-5] Goal Plan of Care Note [code = 37735-9] Goal Plan of Care Note [code = 59437-8] Goal Plan of Care Note [code = 13262-6] Goal Plan of Care Note [code = 71160-9] Goal Plan of Care Note [code = 63690-7] Goal Plan of Care Note [code = 61091-0] Goal Plan of Care Note [code = 50909-4] Goal Plan of Care Note [code = 46997-5] Goal Plan of Care Note [code = 84136-2] Goal Plan of Care Note [code = 95116-7] Goal Plan of Care Note [code = 66022-7] Goal Plan of Care Note [code = 82708-3] Goal Plan of Care Note [code = 95007-5] Goal Plan of Care Note [code = 37812-4] Goal Plan of Care Note [code = 54475-3] Goal Plan of Care Note [code = 52464-6] Goal Plan of Care Note [code = 87157-4] Goal Plan of Care Note [code = 01371-0] Goal Plan of Care Note [code = 91587-5] Goal Plan of Care Note [code = 18388-2] Goal Plan of Care Note [code = 05453-7] Goal Plan of Care Note [code = 25660-9] Goal Plan of Care Note [code = 82632-8] Goal Plan of Care Note [code = 76208-0] Goal Plan of Care Note [code = 88551-7] Goal Plan of Care Note [code = 20624-1] Goal Plan of Care Note [code = 23424-2] Goal Plan of Care Note [code = 61477-5] Goal Plan of Care Note [code = 55480-1] Goal Plan of Care Note [code = 57013-5] Goal Plan of Care Note [code = 19912-7] Goal Plan of Care Note [code = 74834-2] Goal Plan of Care Note [code = 09604-9] Goal Plan of Care Note [code = 62268-9] Goal Plan of Care Note [code = 58370-0] Goal Plan of Care Note [code = 89602-4] Goal Plan of Care Note [code = 80938-9] Goal Plan of Care Note [code = 07991-5] Goal Plan of Care Note [code = 55601-9] Goal Plan of Care Note [code = 91689-0] Goal Plan of Care Note [code = 17746-7] Goal Plan of Care Note [code = 73653-4] Goal Plan of Care Note [code = 71919-5] Goal Plan of Care Note [code = 24325-2] Goal Plan of Care Note [code = 18560-7] Goal Plan of Care Note [code = 36230-4] Goal Plan of Care Note [code = 04880-8] Goal Plan of Care Note [code = 06469-9] Goal Plan of Care Note [code = 07933-7] Goal Plan of Care Note [code = 74875-4] Goal Plan of Care Note [code = 02647-2] Goal Plan of Care Note [code = 61539-0] Goal Plan of Care Note [code = 19320-8] Goal Plan of Care Note [code = 79433-8] Goal Plan of Care Note [code = 89074-7] Goal Plan of Care Note [code = 47124-5] Goal Plan of Care Note [code = 80094-7] Goal Plan of Care Note [code = 68843-4] Goal Plan of Care Note [code = 07919-3] Goal Plan of Care Note [code = 46999-5] Goal Plan of Care Note [code = 68636-1] Goal Plan of Care Note [code = 60858-8] Goal Plan of Care Note [code = 86908-8] Goal Plan of Care Note [code = 95536-6] Goal Plan of Care Note [code = 57714-2] Goal Plan of Care Note [code = 91518-5] Goal Plan of Care Note [code = 58024-9] Goal Plan of Care Note [code = 20703-0] Goal Plan of Care Note [code = 08988-3] Goal Plan of Care Note [code = 16706-7] Goal Plan of Care Note [code = 35077-2] Goal Plan of Care Note [code = 21304-1] Goal Plan of Care Note [code = 54853-7] Goal Plan of Care Note [code = 41910-4] Goal Plan of Care Note [code = 12246-8] Goal Plan of Care Note [code = 19405-8] Goal Plan of Care Note [code = 80192-4] Goal Plan of Care Note [code = 52944-2] Goal Plan of Care Note [code = 34000-9] Goal Plan of Care Note [code = 31162-9] Goal Plan of Care Note [code = 82025-5] Goal Plan of Care Note [code = 63275-2] Goal Plan of Care Note [code = 29335-2] Goal Plan of Care Note [code = 57953-2] Goal Plan of Care Note [code = 75227-7] Goal Plan of Care Note [code = 18041-4] Goal Plan of Care Note [code = 84966-2] Goal Plan of Care Note [code = 16822-6] Goal Plan of Care Note [code = 29727-0] Goal Plan of Care Note [code = 99506-6] Goal Plan of Care Note [code = 08059-3] Goal Plan of Care Note [code = 81601-7] Goal Plan of Care Note [code = 85910-9] Goal Plan of Care Note [code = 40924-6] Goal Plan of Care Note [code = 28670-8] Goal Plan of Care Note [code = 49469-0] Goal Plan of Care Note [code = 90585-3] Goal Plan of Care Note [code = 35849-5] Goal Plan of Care Note [code = 44897-1] Goal Plan of Care Note [code = 80932-8] Goal Plan of Care Note [code = 09359-9] Goal Plan of Care Note [code = 35916-8] Goal Plan of Care Note [code = 21160-0] Goal Plan of Care Note [code = 23346-6] Goal Plan of Care Note [code = 49694-5] Goal Plan of Care Note [code = 18850-9] Goal Plan of Care Note [code = 87849-8] Goal Plan of Care Note [code = 83701-5] Goal Plan of Care Note [code = 25470-4] Goal Plan of Care Note [code = 33372-0] Goal Plan of Care Note [code = 81489-5] Goal Plan of Care Note [code = 12929-9] Goal Plan of Care Note [code = 04309-8] Goal Plan of Care Note [code = 03744-8] Goal Plan of Care Note [code = 46968-4] Goal Plan of Care Note [code = 51277-2] Goal Plan of Care Note [code = 04030-0] Goal Plan of Care Note [code = 48554-5] Goal Plan of Care Note [code = 78024-6] Goal Plan of Care Note [code = 00000-7] Goal Plan of Care Note [code = 15711-2] Goal Plan of Care Note [code = 38344-2] Goal Plan of Care Note [code = 55716-9] Goal Plan of Care Note [code = 16617-5] Goal Plan of Care Note [code = 84251-9] Goal Plan of Care Note [code = 70232-1] Goal Plan of Care Note [code = 59998-8] Goal Plan of Care Note [code = 61890-3] Goal Plan of Care Note [code = 80520-7] Goal Plan of Care Note [code = 87298-8] Goal Plan of Care Note [code = 13469-4] Goal Plan of Care Note [code = 41827-8] Goal Plan of Care Note [code = 62986-0] Goal Plan of Care Note [code = 36904-7] Goal Plan of Care Note [code = 49949-9] Goal Plan of Care Note [code = 23615-7] Goal Plan of Care Note [code = 03578-1] Goal Plan of Care Note [code = 15277-8] Goal Plan of Care Note [code = 26667-3] Goal Plan of Care Note [code = 27921-4] Goal Plan of Care Note [code = 68617-2] Goal Plan of Care Note [code = 29035-2] Goal Plan of Care Note [code = 35171-5] Goal Plan of Care Note [code = 52781-3] Goal Plan of Care Note [code = 18425-6] Goal Plan of Care Note [code = 85883-3] Goal Plan of Care Note [code = 39054-1] Goal Plan of Care Note [code = 12472-5] Goal Plan of Care Note [code = 10701-8] Goal Plan of Care Note [code = 18474-8] Goal Plan of Care Note [code = 00556-1] Goal Plan of Care Note [code = 91652-0] Goal Plan of Care Note [code = 24988-2] Goal Plan of Care Note [code = 95605-5] Goal Plan of Care Note [code = 93914-1] Goal Plan of Care Note [code = 88433-9] Goal Plan of Care Note [code = 63499-4] Goal Plan of Care Note [code = 67444-2] Goal Plan of Care Note [code = 60792-6] Goal Plan of Care Note [code = 94340-9] Goal Plan of Care Note [code = 08181-5] Goal Plan of Care Note [code = 96051-3] Goal Plan of Care Note [code = 47609-6] Goal Plan of Care Note [code = 68783-9] Goal Plan of Care Note [code = 31652-7] Goal Plan of Care Note [code = 99925-5] Goal Plan of Care Note [code = 78001-7] Goal Plan of Care Note [code = 37253-0] Goal Plan of Care Note [code = 45236-9] Goal Plan of Care Note [code = 83412-2] Goal Plan of Care Note [code = 62248-1] Goal Plan of Care Note [code = 48138-3] Goal Plan of Care Note [code = 39377-7] Goal Plan of Care Note [code = 46364-2] Goal Plan of Care Note [code = 88079-9] Goal Plan of Care Note [code = 94840-6] Goal Plan of Care Note [code = 41392-7] Goal Plan of Care Note [code = 07472-5] Goal Plan of Care Note [code = 64110-9] Goal Plan of Care Note [code = 06441-1] Goal Plan of Care Note [code = 19599-9] Goal Plan of Care Note [code = 27421-1] Goal Plan of Care Note [code = 08054-3] Goal Plan of Care Note [code = 05571-3] Goal Plan of Care Note [code = 28973-2] Goal Plan of Care Note [code = 49507-4] Goal Plan of Care Note [code = 78023-2] Goal Plan of Care Note [code = 20244-5] Goal Plan of Care Note [code = 59454-5] Goal Plan of Care Note [code = 63824-8] Goal Plan of Care Note [code = 23658-2] Goal Plan of Care Note [code = 00074-3] Goal Plan of Care Note [code = 20634-2] Goal Plan of Care Note [code = 95890-9] Goal Plan of Care Note [code = 06475-3] Goal Plan of Care Note [code = 92685-7] Goal Plan of Care Note [code = 75923-8] Goal Plan of Care Note [code = 46085-1] Goal Plan of Care Note [code = 36820-5] Goal Plan of Care Note [code = 34259-1] Goal Plan of Care Note [code = 52766-0] Goal Plan of Care Note [code = 30074-6] Goal Plan of Care Note [code = 90758-5] Goal Plan of Care Note [code = 58125-8] Goal Plan of Care Note [code = 49516-3] Goal Plan of Care Note [code = 59911-6] Goal Plan of Care Note [code = 87638-2] Goal Plan of Care Note [code = 05075-7] Goal Plan of Care Note [code = 26071-7] Goal Plan of Care Note [code = 46726-8] Goal Plan of Care Note [code = 80962-4] Goal Plan of Care Note [code = 70391-3] Goal Plan of Care Note [code = 11620-2] Goal Plan of Care Note [code = 59930-3] Goal Plan of Care Note [code = 23480-0] Goal Plan of Care Note [code = 75621-8] Goal Plan of Care Note [code = 01999-6] Goal Plan of Care Note [code = 51065-5] Goal Plan of Care Note [code = 54634-7] Goal Plan of Care Note [code = 48395-4] Goal Plan of Care Note [code = 77566-4] Goal Plan of Care Note [code = 02558-4] Goal Plan of Care Note [code = 67190-5] Goal Plan of Care Note [code = 69059-0] Goal Plan of Care Note [code = 34687-4] Goal Plan of Care Note [code = 14104-8] Goal Plan of Care Note [code = 58339-3] Goal Plan of Care Note [code = 40672-0] Goal Plan of Care Note [code = 04174-1] Goal Plan of Care Note [code = 01013-6] Goal Plan of Care Note [code = 79659-9] Goal Plan of Care Note [code = 12026-7] Goal Plan of Care Note [code = 38841-7] Goal Plan of Care Note [code = 08303-9] Goal Plan of Care Note [code = 02351-2] Goal Plan of Care Note [code = 84357-7] Goal Plan of Care Note [code = 81264-3] Goal Plan of Care Note [code = 44806-0] Goal Plan of Care Note [code = 34010-9] Goal Plan of Care Note [code = 05246-9] Goal Plan of Care Note [code = 00393-5] Goal Plan of Care Note [code = 19716-9] Goal Plan of Care Note [code = 55467-8] Goal Plan of Care Note [code = 29311-5] Goal Plan of Care Note [code = 58532-2] Goal Plan of Care Note [code = 20752-7] Goal Plan of Care Note [code = 79930-3] Goal Plan of Care Note [code = 42427-0] Goal Plan of Care Note [code = 89099-2] Goal Plan of Care Note [code = 35925-3] Goal Plan of Care Note [code = 80990-4] Goal Plan of Care Note [code = 60601-7] Goal Plan of Care Note [code = 15345-4] Goal Plan of Care Note [code = 30987-7] Goal Plan of Care Note [code = 82361-5] Goal Plan of Care Note [code = 76887-3] Goal Plan of Care Note [code = 15923-5] Goal Plan of Care Note [code = 76315-8] Goal Plan of Care Note [code = 83599-7] Goal Plan of Care Note [code = 92067-3] Goal Plan of Care Note [code = 97533-6] Goal Plan of Care Note [code = 91612-0] Goal Plan of Care Note [code = 68634-7] Goal Plan of Care Note [code = 74952-1] Goal Plan of Care Note [code = 77218-5] Goal Plan of Care Note [code = 22263-1] Goal Plan of Care Note [code = 71828-6] Goal Plan of Care Note [code = 18388-8] Goal Plan of Care Note [code = 16636-5] Goal Plan of Care Note [code = 45807-0] Goal Plan of Care Note [code = 68857-1] Goal Plan of Care Note [code = 59363-9] Goal Plan of Care Note [code = 32510-7] Goal Plan of Care Note [code = 17307-6] Goal Plan of Care Note [code = 35259-0] Goal Plan of Care Note [code = 05297-5] Goal Plan of Care Note [code = 81886-5] Goal Plan of Care Note [code = 79757-8] Goal Plan of Care Note [code = 89217-7] Goal Plan of Care Note [code = 45988-4] Goal Plan of Care Note [code = 98345-1] Goal Plan of Care Note [code = 67020-7] Goal Plan of Care Note [code = 15288-3] Goal Plan of Care Note [code = 88437-8] Goal Plan of Care Note [code = 88368-8] Goal Plan of Care Note [code = 71623-5] Goal Plan of Care Note [code = 87204-8] Goal Plan of Care Note [code = 83934-1] Goal Plan of Care Note [code = 07813-8] Goal Plan of Care Note [code = 16645-1] Goal Plan of Care Note [code = 30226-5] Goal Plan of Care Note [code = 67471-6] Goal Plan of Care Note [code = 95144-0] Goal Plan of Care Note [code = 04061-0] Goal Plan of Care Note [code = 12469-6] Goal Plan of Care Note [code = 65343-1] Goal Plan of Care Note [code = 08071-3] Goal Plan of Care Note [code = 07296-2] Goal Plan of Care Note [code = 46569-3] Goal Plan of Care Note [code = 49839-0] Goal Plan of Care Note [code = 87640-0] Goal Plan of Care Note [code = 83994-8] Goal Plan of Care Note [code = 21010-5] Goal Plan of Care Note [code = 36971-3] Goal Plan of Care Note [code = 24888-6] Goal Plan of Care Note [code = 50532-1] Goal Plan of Care Note [code = 35832-3] Goal Plan of Care Note [code = 54420-1] Goal Plan of Care Note [code = 35250-8] Goal Plan of Care Note [code = 30617-5] Goal Plan of Care Note [code = 16815-1] Goal Plan of Care Note [code = 54014-7] Goal Plan of Care Note [code = 90065-4] Goal Plan of Care Note [code = 01485-1] Goal Plan of Care Note [code = 95351-8] Goal Plan of Care Note [code = 93501-1] Goal Plan of Care Note [code = 58794-3] Goal Plan of Care Note [code = 78191-6] Goal Plan of Care Note [code = 81547-9] Goal Plan of Care Note [code = 64814-6] Goal Plan of Care Note [code = 04580-3] Goal Plan of Care Note [code = 77799-3] Goal Plan of Care Note [code = 99216-0] Goal Plan of Care Note [code = 03805-5] Goal Plan of Care Note [code = 98816-8] Goal Plan of Care Note [code = 68204-8] Goal Plan of Care Note [code = 44822-4] Goal Plan of Care Note [code = 59037-7] Goal Plan of Care Note [code = 84663-6] Goal Plan of Care Note [code = 20871-0] Goal Plan of Care Note [code = 91469-9] Goal Plan of Care Note [code = 76228-1] Goal Plan of Care Note [code = 42118-4] Goal Plan of Care Note [code = 14437-5] Goal Plan of Care Note [code = 96372-7] Goal Plan of Care Note [code = 98113-2] Goal Plan of Care Note [code = 36346-6] Goal Plan of Care Note [code = 25099-8] Goal Plan of Care Note [code = 94513-5] Goal Plan of Care Note [code = 21444-2] Goal Plan of Care Note [code = 72568-6] Goal Plan of Care Note [code = 15829-4] Goal Plan of Care Note [code = 72238-5] Goal Plan of Care Note [code = 17242-5] Goal Plan of Care Note [code = 12238-5] Goal Plan of Care Note [code = 99525-6] Goal Plan of Care Note [code = 13320-4] Goal Plan of Care Note [code = 74921-7] Goal Plan of Care Note [code = 76492-5] Goal Plan of Care Note [code = 48166-2] Goal Plan of Care Note [code = 43315-8] Goal Plan of Care Note [code = 39193-7] Goal Plan of Care Note [code = 62616-6] Goal Plan of Care Note [code = 71283-5] Goal Plan of Care Note [code = 45729-7] Goal Plan of Care Note [code = 30214-4] Goal Plan of Care Note [code = 75859-4] Goal Plan of Care Note [code = 03144-7] Goal Plan of Care Note [code = 44923-0] Goal Plan of Care Note [code = 00903-2] Goal Plan of Care Note [code = 42871-8] Goal Plan of Care Note [code = 55462-8] Goal Plan of Care Note [code = 35150-9] Goal Plan of Care Note [code = 35933-3] Goal Plan of Care Note [code = 60271-2] Goal Plan of Care Note [code = 21250-4] Goal Plan of Care Note [code = 02365-7] Goal Plan of Care Note [code = 27302-9] Goal Plan of Care Note [code = 69665-1] Goal Plan of Care Note [code = 87175-8] Goal Plan of Care Note [code = 40262-9] Goal Plan of Care Note [code = 16979-9] Goal Plan of Care Note [code = 72779-7] Goal Plan of Care Note [code = 36620-4] Goal Plan of Care Note [code = 86879-0] Goal Plan of Care Note [code = 49734-0] Goal Plan of Care Note [code = 00789-5] Goal Plan of Care Note [code = 71169-0] Goal Plan of Care Note [code = 72088-2] Goal Plan of Care Note [code = 72573-5] Goal Plan of Care Note [code = 23501-6] Goal Plan of Care Note [code = 75246-1] Goal Plan of Care Note [code = 27386-5] Goal Plan of Care Note [code = 85598-1] Goal Plan of Care Note [code = 19964-9] Goal Plan of Care Note [code = 07707-9] Goal Plan of Care Note [code = 29006-7] Goal Plan of Care Note [code = 02299-8] Goal Plan of Care Note [code = 55535-7] Goal Plan of Care Note [code = 55672-0] Goal Plan of Care Note [code = 12929-6] Goal Plan of Care Note [code = 70922-8] Goal Plan of Care Note [code = 78492-5] Goal Plan of Care Note [code = 70433-9] Goal Plan of Care Note [code = 31431-6] Goal Plan of Care Note [code = 24849-8] Goal Plan of Care Note [code = 43025-0] Goal Plan of Care Note [code = 62679-4] Goal Plan of Care Note [code = 64945-5] Goal Plan of Care Note [code = 38899-5] Goal Plan of Care Note [code = 66427-3] Goal Plan of Care Note [code = 00903-8] Goal Plan of Care Note [code = 52573-0] Goal Plan of Care Note [code = 75508-1] Goal Plan of Care Note [code = 93894-5] Goal Plan of Care Note [code = 36652-2] Goal Plan of Care Note [code = 75503-7] Goal Plan of Care Note [code = 21076-6] Goal Plan of Care Note [code = 06838-9] Goal Plan of Care Note [code = 20052-4] Goal Plan of Care Note [code = 47741-2] Goal Plan of Care Note [code = 34057-4] Goal Plan of Care Note [code = 07287-8] Goal Plan of Care Note [code = 35445-9] Goal Plan of Care Note [code = 64640-8] Goal Plan of Care Note [code = 13473-3] Goal Plan of Care Note [code = 94900-5] Goal Plan of Care Note [code = 94977-0] Goal Plan of Care Note [code = 87965-1] Goal Plan of Care Note [code = 65569-1] Goal Plan of Care Note [code = 14729-6] Goal Plan of Care Note [code = 10153-8] Goal Plan of Care Note [code = 32178-8] Goal Plan of Care Note [code = 33031-3] Goal Plan of Care Note [code = 73210-3] Goal Plan of Care Note [code = 76433-5] Goal Plan of Care Note [code = 91690-8] Goal Plan of Care Note [code = 39688-9] Goal Plan of Care Note [code = 49242-0] Goal Plan of Care Note [code = 23685-4] Goal Plan of Care Note [code = 26390-9] Goal Plan of Care Note [code = 13882-3] Goal Plan of Care Note [code = 53563-9] Goal Plan of Care Note [code = 02164-8] Goal Plan of Care Note [code = 51991-7] Goal Plan of Care Note [code = 22822-8] Goal Plan of Care Note [code = 56177-2] Goal Plan of Care Note [code = 51244-0] Goal Plan of Care Note [code = 60303-5] Goal Plan of Care Note [code = 97358-7] Goal Plan of Care Note [code = 90377-6] Goal Plan of Care Note [code = 11025-3] Goal Plan of Care Note [code = 62715-8] Goal Plan of Care Note [code = 51389-0] Goal Plan of Care Note [code = 18842-9] Goal Plan of Care Note [code = 45654-4] Goal Plan of Care Note [code = 81353-0] Goal Plan of Care Note [code = 31429-4] Goal Plan of Care Note [code = 86870-2] Goal Plan of Care Note [code = 58938-2] Goal Plan of Care Note [code = 22579-1] Goal Plan of Care Note [code = 03632-8] Goal Plan of Care Note [code = 58814-5] Goal Plan of Care Note [code = 83566-8] Goal Plan of Care Note [code = 91417-2] Goal Plan of Care Note [code = 93010-3] Goal Plan of Care Note [code = 50629-8] Goal Plan of Care Note [code = 98999-9] Goal Plan of Care Note [code = 87919-0] Goal Plan of Care Note [code = 90183-0] Goal Plan of Care Note [code = 51208-8] Goal Plan of Care Note [code = 72001-7] Goal Plan of Care Note [code = 24107-7] Goal Plan of Care Note [code = 39874-4] Goal Plan of Care Note [code = 91164-2] Goal Plan of Care Note [code = 48607-2] Goal Plan of Care Note [code = 83067-9] Goal Plan of Care Note [code = 59806-7] Goal Plan of Care Note [code = 64861-7] Goal Plan of Care Note [code = 30144-6] Goal Plan of Care Note [code = 90938-2] Goal Plan of Care Note [code = 92133-5] Goal Plan of Care Note [code = 30164-6] Goal Plan of Care Note [code = 55241-2] Goal Plan of Care Note [code = 37675-2] Goal Plan of Care Note [code = 94579-3] Goal Plan of Care Note [code = 27778-1] Goal Plan of Care Note [code = 63384-6] Goal Plan of Care Note [code = 18048-5] Goal Plan of Care Note [code = 20875-8] Goal Plan of Care Note [code = 73295-7] Goal Plan of Care Note [code = 63951-6] Goal Plan of Care Note [code = 65701-6] Goal Plan of Care Note [code = 36395-2] Goal Plan of Care Note [code = 83897-9] Goal Plan of Care Note [code = 89710-0] Goal Plan of Care Note [code = 37843-5] Goal Plan of Care Note [code = 68101-5] Goal Plan of Care Note [code = 71854-0] Goal Plan of Care Note [code = 49616-5] Goal Plan of Care Note [code = 76991-8] Goal Plan of Care Note [code = 04006-8] Goal Plan of Care Note [code = 78917-8] Goal Plan of Care Note [code = 69669-9] Goal Plan of Care Note [code = 59541-3] Goal Plan of Care Note [code = 46550-0] Goal Plan of Care Note [code = 54076-8] Goal Plan of Care Note [code = 60299-7] Goal Plan of Care Note [code = 79460-1] Goal Plan of Care Note [code = 18125-1] Goal Plan of Care Note [code = 39317-5] Goal Plan of Care Note [code = 43407-2] Goal Plan of Care Note [code = 54811-4] Goal Plan of Care Note [code = 45785-9] Goal Plan of Care Note [code = 72923-2] Goal Plan of Care Note [code = 34326-6] Goal Plan of Care Note [code = 52497-6] Goal Plan of Care Note [code = 91982-9] Goal Plan of Care Note [code = 96051-8] Goal Plan of Care Note [code = 60979-9] Goal Plan of Care Note [code = 31001-6] Goal Plan of Care Note [code = 02223-3] Goal Plan of Care Note [code = 29852-6] Goal Plan of Care Note [code = 29817-6] Goal Plan of Care Note [code = 11538-7] Goal Plan of Care Note [code = 26115-7] Goal Plan of Care Note [code = 31267-6] Goal Plan of Care Note [code = 08437-8] Goal Plan of Care Note [code = 98862-9] Goal Plan of Care Note [code = 31906-4] Goal Plan of Care Note [code = 03786-7] Goal Plan of Care Note [code = 37518-5] Goal Plan of Care Note [code = 12198-7] Goal Plan of Care Note [code = 01573-3] Goal Plan of Care Note [code = 47719-3] Goal Plan of Care Note [code = 90837-2] Goal Plan of Care Note [code = 41552-7] Goal Plan of Care Note [code = 12625-1] Goal Plan of Care Note [code = 90880-2] Goal Plan of Care Note [code = 50768-9] Goal Plan of Care Note [code = 77419-4] Goal Plan of Care Note [code = 04383-4] Goal Plan of Care Note [code = 95345-2] Goal Plan of Care Note [code = 66317-7] Goal Plan of Care Note [code = 87405-9] Goal Plan of Care Note [code = 27590-7] Goal Plan of Care Note [code = 69047-9] Goal Plan of Care Note [code = 65269-2] Goal Plan of Care Note [code = 61562-9] Goal Plan of Care Note [code = 30529-5] Goal Plan of Care Note [code = 57114-9] Goal Plan of Care Note [code = 17915-6] Goal Plan of Care Note [code = 03737-9] Goal Plan of Care Note [code = 06657-7] Goal Plan of Care Note [code = 33571-8] Goal Plan of Care Note [code = 67421-4] Goal Plan of Care Note [code = 29906-8] Goal Plan of Care Note [code = 57141-1] Goal Plan of Care Note [code = 26684-3] Goal Plan of Care Note [code = 92599-8] Goal Plan of Care Note [code = 22912-3] Goal Plan of Care Note [code = 38578-7] Goal Plan of Care Note [code = 28589-2] Goal Plan of Care Note [code = 74997-1] Goal Plan of Care Note [code = 02584-2] Goal Plan of Care Note [code = 38297-4] Goal Plan of Care Note [code = 28735-6] Goal Plan of Care Note [code = 46125-1] Goal Plan of Care Note [code = 97870-9] Goal Plan of Care Note [code = 16979-1] Goal Plan of Care Note [code = 68052-9] Goal Plan of Care Note [code = 11695-4] Goal Plan of Care Note [code = 78478-2] Goal Plan of Care Note [code = 96720-5] Goal Plan of Care Note [code = 76995-5] Goal Plan of Care Note [code = 98291-5] Goal Plan of Care Note [code = 46486-2] Goal Plan of Care Note [code = 10683-0] Goal Plan of Care Note [code = 51836-2] Goal Plan of Care Note [code = 28196-2] Goal Plan of Care Note [code = 82859-8] Goal Plan of Care Note [code = 47071-8] Goal Plan of Care Note [code = 08091-2] Goal Plan of Care Note [code = 97635-2] Goal Plan of Care Note [code = 45694-7] Goal Plan of Care Note [code = 02301-6] Goal Plan of Care Note [code = 89306-6] Goal Plan of Care Note [code = 35101-4] Goal Plan of Care Note [code = 11372-7] Goal Plan of Care Note [code = 00851-2] Goal Plan of Care Note [code = 38046-5] Goal Plan of Care Note [code = 94241-7] Goal Plan of Care Note [code = 66305-6] Goal Plan of Care Note [code = 51932-5] Goal Plan of Care Note [code = 08341-8] Goal Plan of Care Note [code = 35553-6] Goal Plan of Care Note [code = 54393-3] Goal Plan of Care Note [code = 39688-7] Goal Plan of Care Note [code = 70753-9] Goal Plan of Care Note [code = 49610-7] Goal Plan of Care Note [code = 47315-4] Goal Plan of Care Note [code = 32491-7] Goal Plan of Care Note [code = 82129-1] Goal Plan of Care Note [code = 31555-3] Goal Plan of Care Note [code = 74294-5] Goal Plan of Care Note [code = 10214-3] Goal Plan of Care Note [code = 00383-8] Goal Plan of Care Note [code = 22008-4] Goal Plan of Care Note [code = 73136-4] Goal Plan of Care Note [code = 28878-3] Goal Plan of Care Note [code = 88926-2] Goal Plan of Care Note [code = 44306-4] Goal Plan of Care Note [code = 38102-0] Goal Plan of Care Note [code = 63432-4] Goal Plan of Care Note [code = 80399-8] Goal Plan of Care Note [code = 84073-0] Goal Plan of Care Note [code = 21506-4] Goal Plan of Care Note [code = 56745-1] Goal Plan of Care Note [code = 06064-1] Goal Plan of Care Note [code = 01787-2] Goal Plan of Care Note [code = 56535-5] Goal Plan of Care Note [code = 94777-0] Goal Plan of Care Note [code = 57845-6] Goal Plan of Care Note [code = 82206-5] Goal Plan of Care Note [code = 52026-5] Goal Plan of Care Note [code = 19100-9] Goal Plan of Care Note [code = 71684-6] Goal Plan of Care Note [code = 49011-3] Goal Plan of Care Note [code = 40752-4] Goal Plan of Care Note [code = 73192-0] Goal Plan of Care Note [code = 10221-2] Goal Plan of Care Note [code = 79689-3] Goal Plan of Care Note [code = 63150-5] Goal Plan of Care Note [code = 37547-8] Goal Plan of Care Note [code = 44713-2] Goal Plan of Care Note [code = 37142-0] Goal Plan of Care Note [code = 80374-1] Goal Plan of Care Note [code = 64897-5] Goal Plan of Care Note [code = 40978-8] Goal Plan of Care Note [code = 06727-5] Goal Plan of Care Note [code = 76138-0] Goal Plan of Care Note [code = 39656-5] Goal Plan of Care Note [code = 18323-5] Goal Plan of Care Note [code = 90893-0] Goal Plan of Care Note [code = 23870-4] Goal Plan of Care Note [code = 95985-9] Goal Plan of Care Note [code = 18033-9] Goal Plan of Care Note [code = 58566-7] Goal Plan of Care Note [code = 89717-0] Goal Plan of Care Note [code = 00400-3] Goal Plan of Care Note [code = 33015-5] Goal Plan of Care Note [code = 63463-3] Goal Plan of Care Note [code = 07730-9] Goal Plan of Care Note [code = 02763-4] Goal Plan of Care Note [code = 33311-8] Goal Plan of Care Note [code = 53023-5] Goal Plan of Care Note [code = 66612-9] Goal Plan of Care Note [code = 39416-2] Goal Plan of Care Note [code = 64230-2] Goal Plan of Care Note [code = 81846-1] Goal Plan of Care Note [code = 18085-3] Goal Plan of Care Note [code = 85391-5] Goal Plan of Care Note [code = 21740-8] Goal Plan of Care Note [code = 05794-7] Goal Plan of Care Note [code = 58134-1] Goal Plan of Care Note [code = 07838-3] Goal Plan of Care Note [code = 68137-2] Goal Plan of Care Note [code = 89124-7] Goal Plan of Care Note [code = 00487-0] Goal Plan of Care Note [code = 17980-5] Goal Plan of Care Note [code = 36218-8] Goal Plan of Care Note [code = 83666-5] Goal Plan of Care Note [code = 49850-0] Goal Plan of Care Note [code = 01665-7] Goal Plan of Care Note [code = 61252-5] Goal Plan of Care Note [code = 71303-1] Goal Plan of Care Note [code = 64217-2] Goal Plan of Care Note [code = 23258-6] Goal Plan of Care Note [code = 11020-6] Goal Plan of Care Note [code = 43814-7] Goal Plan of Care Note [code = 14431-1] Goal Plan of Care Note [code = 00530-7] Goal Plan of Care Note [code = 27866-9] Goal Plan of Care Note [code = 36862-8] Encounters Start End Encounter Admission Attending Care Care Encounter Source Date/Time Date/Time Type Type Clinicians Facility Department ID 2021-05-10 Emergency [facility] [id number] Univers 15:04:50 [facility] 2021-05-08 Emergency [facility] [id number] Univers 16:08:38 [facility] 2020-08-08 Inpatient Bebeto Valderrama [facility] RADI [id number] [facility] 15:30:00 59 [facility] 2020-08-02 Inpatient HCAT[facility] CARISSA [id number] [facility] 13:01:00 80 [facility] 2020-02-13 Inpatient [facility]AT[facility] CARISSA [id number] [facility] 19:15:00 41 [facility] 2020-01-16 Inpatient EL Katie, [facility] SURG [id number] [facility] 16:00:00 Tomiko 97 [facility] 2022-07-09 2022-07-09 Outpatient [facility] [id number] Huang 09:41:12 09:41:12 1230 F Quirino 2022-07-09 2022-07-09 Outpatient [id number]- [id number] 9d 92671d-j 00:00:00 00:00:00 Visit u86f-3tx3 40c-4fc9-a -a9du-328 8bb-636dec axtt9899z v2582l 2022-06-23 2022-06-23 Outpatient mx1s86kq- [id number] ac 3u34zm-1 00:00:00 00:00:00 Visit 7l7y-04p6 k9a-27i8-y -m1q7-k66 8j6-d516pi 4zg5u5657 0l2797 2022-06-21 2022-06-21 Emergency X [facility] ERT [id number] Univers 17:30:00 23:11:00 KATELYN diaz [facility] 2022-06-21 2022-06-21 Emergency [facility] 1.2.418.009 [id number] Univers 17:30:00 23:11:00 Katelyn BARBER 350.1.13.10 [facility] 4.2.7.2.686 [facility] [id number] [address] 2022-06-18 2022-06-18 Outpatient [facility] [id number] 022 Huang 10:29:22 10:29:22 1209 F Quirino 2022-06-18 2022-06-18 Outpatient 6av8tkd4- [id number] 3a h4noa3-f 00:00:00 00:00:00 Visit ct0o-3ed9 b1a-5dh6-r -z998-s22 058-y9942v 57gjoy278 jqd089 2022-06-17 2022-06-17 Outpatient [facility] [id number] 022 Huang 08:29:59 08:29:59 1208 F Quirino 2022-06-16 2022-06-16 Outpatient [facility] [id number] 022 Huang 15:41:26 15:41:26 1207 F Quirino 2022-06-16 2022-06-16 Outpatient 0i752m3h- [id number] 2f 988t9d-r 00:00:00 00:00:00 Visit dee3-4499 ee3-4499-9 -917d-e2d 17d-d0i229 64126481m 40630z 2022-06-04 2022-06-04 Outpatient [facility] 56814-5 022 Huang 11:59:44 11:59:44 1125 F Quirino 2022-06-02 2022-06-02 Outpatient 45b20s8u- [id number] i55n9j-4 00:00:00 00:00:00 Visit 756a-4a2e 56a-4a2e-b -v479-c20 549-x2721s 56d3564c1 9815d6 2022-04-29 2022-04-29 Outpatient [facility] 76727-2 022 Huang 08:03:25 08:03:25 1020 F Quirino 2022-04-29 2022-04-29 Outpatient [id number]- [id number] 3op592-2 00:00:00 00:00:00 Visit 7mv4-4t94 bd7-4b85-9 -940e-c2d 40e-c2dfc3 lm3690282 471604 5487-10-14 2022-04-23 Outpatient qi3b6495- [id number] bf 4d8147-o 00:00:00 00:00:00 Visit tn26-9pfz i31-7mpe-2 -924a-d01 24a-d01f5f p5z0hu57e 4eb17f 2022-04-09 2022-04-09 Outpatient [facility] [id number] 022 Huang 08:02:18 08:02:18 0930 F Quirino 2022-04-09 2022-04-09 Outpatient k4f74891- [id number] c2 j96987-9 00:00:00 00:00:00 Visit 1x52-93x5 i66-50f4-2 -8750-031 750-0319bb 7eghx0099 tp2097 2022-03-29 2022-03-29 Outpatient [id number]- [id number] 926087-s 00:00:00 00:00:00 Visit d516-24h5 701-46a9-a -p6k2-y39 8y8-v99764 8509t34g8 3d26f8 2022-03-16 2022-03-16 Telephone [facility], 1.2.840.1 [id number] 2099 [id number] Methodi 00:00:00 00:00:[address] [facility] 3.430.2.7 Hospit a Arik .3.265128 l .8 2022-03-16 2022-03-16 Telephone [facility], 1.2.840.1 [id number] Methodi 00:00:00 00:00:[address] [facility] 3.430.2.7 Hospit a Arik .3.472425 l .8 2022-03-11 2022-03-11 Telephone [facility], 1.2.840.1 [id number] Methodi 00:00:00 00:00:[address] Dewi 3.430.2.7 Hospit a Arik .3.374290 l .8 2022-03-11 2022-03-11 Telephone [facility], 1.2.840.1 [id number] 2099 [id number] Methodi 00:00:00 00:00:[address] Dewi 3.430.2.7 Hospit a Arik .3.717578 l .8 2022-03-09 2022-03-09 Outpatient o2w36203- [id number] d6 o36391-s 00:00:00 00:00:00 Visit v22w-517c 56a-450d-9 -2h4t-26e m4z-48p212 797s85019 q16607 2022-01-20 2022-01-20 Outpatient 4wb30gfy- [id number] 0f t09szi-4 00:00:00 00:00:00 Visit 8baf-464d baf-464d-a -x27t-394 91e-45318s 44ulju22t aeb84a 2021-10-16 2021-10-16 Emergency [facility] ERT [id number] Univers 16:39:00 22:23:00 BEATRIZ diaz [facility] 2021-10-16 2021-10-16 Emergency [facility] 1.2.628.869 [id number] Univers 16:39:00 22:23:00 Beatriz ALMONTERAMIRO 350.1.13.10 ity [facility] 4.2.7.2.686 [facility] [id number] [address] 2021-09-22 2021-09-22 Emergency X [facility] ERT [id number] Univers 09:56:00 12:05:00 JN diaz [facility] 2021-09-22 2021-09-22 Emergency [facility] 1.2.583.027 [id number] Univers 09:56:00 12:05:00 Jn BARBER 350.1.13.10 i ty [facility] 4.2.7.2.686 [facility] [id number] [address] 2021-08-20 2021-08-20 [facility] 1.2.840.114 [id number] Univers 00:00:00 00:00:00 [facility] 350.1.13.10 it y kristyn [place] 4.2.7.2.686 Blake as DANIELITO?BLEA [id number] [address] MEDICAL OFFICE BUILDING 2021-07-31 2021-07-31 Outpatient Bebeto Valderrama [facility] DAYS [id number] [facility] 05:47:00 05:47:00 00 [facility] 2021-06-18 2021-06-18 Emergency [facility] [id number] Univers 04:31:00 08:25:00 FOZIA yangisaac [facility] 2021-06-18 2021-06-18 Emergency [facility] 1.2.723.514 [id number] [id number] Univers 04:31:00 08:25:00 Fozia BARBER 350.1.13.10 ity [facility] 4.2.7.2.686 [facility] [id number] [address] 2021-06-10 2021-06-10 Outpatient [facility] [id number] [place] 00:00:00 00:00:[address] 2021-06-10 2021-06-10 Travel 1.2.840.1 1.2.328.083 [id number] Methodi 00:00:00 00:00:[address] 3.430.2.7 0.2.7.3.698 Ho spita .3.684138 084.8 l .8 2021-06-08 2021-06-08 Telephone Juan Pabloalber, 1.2.840.1 [id number] 2099 [id number] Methodi 00:00:00 00:00:[address] Dewi 3.430.2.7 Hospit a Arik .3.926471 l .8 2021-05-30 2021-05-30 Emergency [facility] ERT [id number] Univers 15:49:00 19:42:00 MARY [facility] 2021-05-30 2021-05-30 Emergency [facility] 1.2.329.795 [id number] Univers 15:49:00 19:42:00 Mary Mota SUNIL 350.1.13.10 i ty of [place] 4.2.7.2.686 [facility] [id number] [address] 2021-03-17 2021-03-17 Cam [facility] 1.2.218.018 [id number] Univers 00:00:00 00:00:00 Doron Barber 350.1.13.10 i ty of [place] 4.2.7.2.686 [facility] Professio [id number] Id [address] 2021-02-27 2021-02-27 Outpatient Anupama THOMPSON [facility] [id number] Univers 15:00:00 15:00:00 DORON diaz [facility] 2020-12-23 2020-12-23 Outpatient R ROBBIE, [facility] [id number] Univers 16:00:00 16:00:00 FABIO isaac [facility] 2020-12-10 2020-12-10 Outpatient R LISA, [facility] [id number] Univers 09:00:00 09:53:04 BRYSON [facility] 2020-12-02 2020-12-04 Outpatient X KENYA, [facility] [id number] Univers 19:53:00 17:23:00 FOZIA [facility] 2020-11-07 2020-11-07 Outpatient R THOMPSON, [facility] [id number] Univers 13:30:00 13:30:00 DORON [facility] 2020-06-02 2020-06-02 Telephone [facility] 1.2.840.114 [id number] 00:00:00 00:00:00 Lily Barber 350.1.13.10 [place] 4.2.7.2.686 Professisabelle [id number] [address] 2020-05-29 2020-05-29 Out[facility] [id number] Univers 15:15:00 15:15:00 LESLEE [facility] 2020-05-27 2020-05-27 Office [facility] 1.2.994.976 [id number] 10:59:24 11:54:17 Visit Lily Barber 350.1.13.10 [place] 4.2.7.2.686 Professisabelle [id number] [address] 2020-05-27 2020-05-27 Outpatient R [facility] [id number] [facility] 10:45:00 10:45:00 LILY [facility] 2020-05-27 2020-05-27 Orders Doctor JACOBS 1.2.840.114 [id number] 00:00:00 00:00:00 Only Unassigned, BENITA 350.1.13.10 [place] [facility] 4.2.7.2.686 [id number] 009 2020-01-10 2020-01-10 Outpatient TIANA Wilson LABO [id number] [facility] 18:46:00 18:46:00 Tomiko 24 [facility] 2020-01-04 2020-01-04 Outpatient DINAH Wilson [facility] [id number] [facility] 13:00:00 13:00:00 Tomiko 18 [facility] 2019-12-12 2019-12-12 Outpatient Anupama CORINNE, [facility] [id number] Univers 16:30:00 16:30:00 STANISLAW isaac [facility] 2019-12-07 2019-12-07 Outpatient Anupama THOMPSON, [facility] [id number] [facility] 09:00:00 09:00:00 DORON [facility] 2019-11-22 2019-11-22 Outpatient ANTOSH, [facility] [id number] [place] 00:00:00 00:00:00 SILVINA 303 [place] 2019-11-06 2019-11-06 Outpatient ANTOSH, [facility] [id number] [place] 00:00:00 00:00:00 SILVINA 632 [place] 2019-11-01 2019-11-01 Outpatient ANTOSH, [facility] [id number] [place] 00:00:00 00:00:00 SILVINA 554 [place] 2019-10-30 2019-10-30 Outpatient GALAN, [facility] [id number] [place] 00:00:00 00:00:00 ABHIJIT 714 Method i 2019-10-18 2019-10-18 Outpatient ANTOSH, [facility] [id number] [place] 00:00:00 00:00:00 SILVINA 629 [place] 2019-10-02 2019-10-02 Outpatient ANTOSH, [facility] [id number] [place] 00:00:00 00:00:00 SILVINA 105 [place] 2019-10-01 2019-10-01 Outpatient ANTOSH, [facility] [id number] [place] 00:00:00 00:00:00 SILVINA 439 [place] [address] 2019-09-19 2019-09-19 Outpatient ANTOSH, [facility] [id number] [place] 00:00:00 00:00:00 SILVINA [address] 2019-09-11 2019-09-11 [address] [facility] [id number] Univers 10:30:00 10:30:00 STANISLAW [facility] 2019-09-10 2019-09-10 Outpatient ANGELIA, [facility] [id number] [place] 00:00:00 00:00:00 ABHIJIT 420 Method i 2019-09-10 2019-09-10 Outpatient ERNST, [facility] [id number] [place] 00:00:00 00:00:00 SILVINA 373 [place] [address] 2019-09-10 2019-09-10 Outpatient ERNST [facility] [id number] [place] 00:00:00 00:00:00 SILVINA 354 [place] [address] 2019-08-23 2019-08-23 Outpatient R ADRIENNE, [facility] [id number] Univers 16:15:00 10:31:44 [facility] 2019-08-15 2019-08-15 Outpatient R ADRIENNE [facility] [id number] Univers 09:15:00 09:44:35 [facility] 2019-07-07 2019-07-07 Emergency X YARIMA, [facility] ERT [id number] Univers 10:13:53 13:06:00 FOZIA [facility] 2010-08-05 2010-08-07 Inpatient OUTP Kit Lopez [facility] [id number] [facility] 16:20:00 14:00:00 00 [facility] Results Test Description Test Time Test Comments Results Result Comments Source Basic Metabolic Panel (Na, K, Cl, CO2, Glucose, BUN, 2022-06 03:47:00 Creatinine, Ca) Test Item Value Reference Range Interpretation Comme nts NA (test code = 5082815730) 136 mmol/L 135-145 K (test code = 3765683095) 3.8 mmol/L 3.5-5.0 CL (test code = 8831735032) 97 mmol/L 98-108 L CO2 TOTAL (test code = 3102967185) 24 mmol/L 23-31 AGAP (test code = 0572077479) 2-16 BUN (test code = 0573316688) 34 mg/dL 7-23 H GLUCOSE (test code = 5808123579) 270 mg/dL 70-110 H CREATININE (test code = 0.93 mg/dL 0.50-1.04 6626134900) CALCIUM (test code = 1125871563) 10.6 mg/dL 8.6-10.6 eGFR (test code = 0571826225) mL/min/1.73m2 CALVIN (test code = CALVIN) Association [...] tests). Lab Interpretation (test code = Abnormal 60981-2) [facility]22 03:46:00 Test Item Value Reference Range Interpretation Comments POCT GLU (test code = 1934759898) 256 mg/dL 70-110 H Lab Interpretation (test code = Abnormal 23614-6) [facility]1C)2022-06-22 03:08:04 Test Item Value Reference Range Interpretation Comments HGB A1C (test code = 12.0 % 4.0-5.7 H 4548-4) CALVIN (test code = CALVIN) Reference RangesNormal: <5.7%Prediabetes: 5.7 - 6.4%Diabetes: > 6.5% Lab Interpretation (test Abnormal code = 74586-0) [facility] GLUCOSE (AUTOMATED)2022-06-22 02:44:02 Test Item Value Reference Range Interpretation Comments POCT GLU (test code = 5138529236) 265 mg/dL 70-110 H Lab Interpretation (test code = Abnormal 11256-4) [facility] GLUCOSE(AGE >30DAYS)2022-06-22 02:39:00 Test Item Value Reference Range Interpretation Comments POCT Glu (age>30days) (test code = 265 mg/dL 70-110 A 3342) Lab Interpretation (test code = Abnormal 64899-6) [facility] [id number] 02:25:21 Test Item Value Reference Range Interpretation Comments MAGNESIUM (test code = 8295850437) 1.5 mg/dL 1.7-2.4 L Lab Interpretation (test code = Abnormal 77314-4) [facility] [id number] 02:25:01 Test Item Value Reference Range Interpretation Comments PHOSPHORUS (test code = 3650745293) 5.7 mg/dL 2.5-5.0 H Lab Interpretation (test code = Abnormal 80567-9) [facility] GLUCOSE (AUTOMATED)2022-06-22 01:44:15 Test Item Value Reference Range Interpretation Comments POCT GLU (test code = 9825465509) 298 mg/dL 70-110 H Lab Interpretation (test code = Abnormal 80183-0) [facility] WITH [id number] 01:28:41 Test Item Value Reference Range Interpretation Comments WBC (test code = See_Comment [Automated 6690-2) message] The sy stem which generated this result transmitted reference range : 4.30 - 11.10 10*3/?L. The reference range was not used to interpret this result as normal/abnormal . RBC (test code = See_Comment H [Automated 629-8) message] The sy stem which generated this [...] (test code = 37.1 fL 39.0-49.9 L 42653-9) RDW-CV (test code = 12.5 % 12.0-15.5 788-0) PLT (test code = See_Comment [Automated 777-3) message] The sy stem which generated this result transmitted reference range : 166 - 358 10*3/ ?L. The reference r doretha was not used to interpret this result as normal/abnormal . MPV (test code = 9.9 fL 9.5-12.9 94154-6) NRBC/100 WBC (test See_Comment [Automat ed code = 8468791984) message] The system which generated this result transmitted reference range : 0.0 - 10.0 /100 WBCs. The refer ence range was not u sed to interpret th is result as normal/abnormal . NRBC x10^3 (test code See_Comment [Auto mated = 7265505564) message] The s ystem which generated this result transmitted reference range : 10*3/?L. The reference range was not used to interpret this result as normal/abnormal . GRAN MAT (NEUT) % 40.5 % (test code = 770-8) IMM GRAN % (test code 0.90 % = 7388388785) LYMPH % (test code = 48.0 % 736-9) MONO % (test code = 8.5 % 5905-5) EOS % (test code = 1.1 % 713-8) BASO % (test code = 1.0 % 706-2) GRAN MAT x10^3(ANC) 4.35 10*3/uL 1.88-7.09 (test code = 0748627346) IMM GRAN x10^3 (test 0.10 10*3/uL 0.00-0.06 H code = 3445797000) LYMPH x10^3 (test code 5.17 10*3/uL 1.32-3.29 H = 731-0) MONO x10^3 (test code 0.92 10*3/uL 0.33-0.92 = 742-7) EOS x10^3 (test code = 0.12 10*3/uL 0.03-0.39 711-2) BASO x10^3 (test code 0.11 10*3/uL 0.01-0.07 H = 704-7) Lab Interpretation Abnormal (test code = 66863-4) [facility] [id number] 00:34:27 Test Item Value Reference Interpretation Comments Range TROPONIN I (test 0.000 ng/mL See_Comment [Automated code = 5140096829) message] The system which generated this result [...] biotin. Lab Interpretation Normal (test code = 71451-7) [facility] [id number] 00:31:09 Test Item Value Reference Range Interpretation Comments NT-proBNP (test code 21 pg/mL See_Comment [Autom ated = 0724025905) message] The system which generated this result transmitted reference range : <=125. The reference range was not used to interpret this result as normal/abnormal . CALVIN (test code = CALVIN) Biotin has been reported to cause a negative bias, interpret results relative to patient's use of biotin. Lab Interpretation Normal (test code = 43519-0) [facility] METABOLIC PANEL (NA, K, CL, CO2, GLUCOSE, BUN, CREATININE, CA)2022-06-22 00:22:03 Test Item Value Reference Range Interpretation Comments NA (test code = 133 mmol/L 135-145 L 1686204191) K (test code = 4.7 mmol/L 3.5-5.0 9124913964) CL (test code = 91 mmol/L 98-108 L 6552493273) CO2 TOTAL (test code = 24 mmol/L 23-31 2088732309) AGAP (test code = 2-16 H 9403983054) BUN (test code = 37 mg/dL 7-23 H 2659358824) GLUCOSE (test code = 385 mg/dL 70-110 H 8408467688) CREATININE (test code = 1.09 mg/dL 0.50-1.04 H 4051532649) CALCIUM (test code = 11.5 mg/dL 8.6-10.6 H 3836550299) eGFR (test code = mL/min/1.73m2 0338578771) CALVIN (test code = CALVIN) Association of [...] tests). Lab Interpretation Abnormal (test code = 32750-1) [facility] [id number] 00:00:00 Test Item Value Reference Range Interpretation Comments GLUCOSE (test code = 2217) 259 MG/DL BUN (test code = 2208) 17 MG/DL CREATININE (test code = 2214) 0.72 MG/DL eGFR (2020 CKD-EPI) (test 106 ML/MIN/1.73 code = 93045) CALC BUN/CREAT (test code = 24 RATIO [...] code = 2219) 38 U/L COMPREHENSIVE METABOLIC [id number] 00:00:00 Test Item Value Reference Range Interpretation Comments GLUCOSE (test code = 2217) 259 MG/DL BUN (test code = 2208) 17 MG/DL CREATININE (test code = 2214) 0.72 MG/DL eGFR (2020 CKD-EPI) (test 106 ML/MIN/1.73 code = 82917) CALC BUN/CREAT (test code = 24 RATIO [...] (test code = 2219) 38 U/L LIPID [id number] 00:00:00 Test Item Value Reference Range Interpretation Comments CHOLESTEROL (test code = 2210) 196 MG/DL TRIGLYCERIDES (test code = 2232) 500 MG/DL HDL CHOLESTEROL (test code = 31 MG/DL 2220) CALC LDL CHOL (test code = 2237) (NOTE) MG/DL RISK RATIO LDL/HDL (test code = (NOTE) RATIO 2238) LIPID [id number] 00:00:00 Test Item Value Reference Range Interpretation Comments CHOLESTEROL (test code = 2210) 196 MG/DL TRIGLYCERIDES (test code = 2232) 500 MG/DL HDL CHOLESTEROL (test code = 31 MG/DL 2220) CALC LDL CHOL (test code = 2237) (NOTE) MG/DL RISK RATIO LDL/HDL (test code = (NOTE) RATIO 2238) HEMOGLOBIN [id number] 00:00:00 Test Item Value Reference Range Interpretation Comments HEMOGLOBIN A1c (test code = 22475) 11.0 % HEMOGLOBIN [id number] 00:00:00 Test Item Value Reference Range Interpretation Comments HEMOGLOBIN A1c (test code = 04722) 11.0 % HEMOGLOBIN [id number] 00:00:00 Test Item Value Reference Range Interpretation Comments HEMOGLOBIN A1c (test code = 82449) 11.0 % COMPREHENSIVE METABOLIC [id number] 00:00:00 Test Item Value Reference Range Interpretation Comments GLUCOSE (test code = 2217) 259 MG/DL BUN (test code = 2208) 17 MG/DL CREATININE (test code = 2214) 0.72 MG/DL eGFR (2020 CKD-EPI) (test 106 ML/MIN/1.73 code = 81835) CALC BUN/CREAT (test code = 24 RATIO [...] code = 2219) 38 U/L COMPREHENSIVE METABOLIC [id number] 00:00:00 Test Item Value Reference Range Interpretation Comments GLUCOSE (test code = 2217) 259 MG/DL BUN (test code = 2208) 17 MG/DL CREATININE (test code = 2214) 0.72 MG/DL eGFR (2020 CKD-EPI) (test 106 ML/MIN/1.73 code = 25119) CALC BUN/CREAT (test code = 24 RATIO [...] (test code = 2219) 38 U/L LIPID [id number] 00:00:00 Test Item Value Reference Range Interpretation Comments CHOLESTEROL (test code = 2210) 196 MG/DL TRIGLYCERIDES (test code = 2232) 500 MG/DL HDL CHOLESTEROL (test code = 31 MG/DL 2219) CALC LDL CHOL (test code = 2237) (NOTE) MG/DL RISK RATIO LDL/HDL (test code = (NOTE) RATIO 2238) LIPID [id number] 00:00:00 Test Item Value Reference Range Interpretation Comments CHOLESTEROL (test code = 2210) 196 MG/DL TRIGLYCERIDES (test code = 2232) 500 MG/DL HDL CHOLESTEROL (test code = 31 MG/DL 2220) CALC LDL CHOL (test code = 2237) (NOTE) MG/DL RISK RATIO LDL/HDL (test code = (NOTE) RATIO 2238) HEMOGLOBIN [id number] 00:00:00 Test Item Value Reference Range Interpretation Comments HEMOGLOBIN A1c (test code = 99927) 11.0 % HEMOGLOBIN [id number] 00:00:00 Test Item Value Reference Range Interpretation Comments HEMOGLOBIN A1c (test code = 40751) 11.0 % HEMOGLOBIN [id number] 00:00:00 Test Item Value Reference Range Interpretation Comments HEMOGLOBIN A1c (test code = 78592) 11.0 % COMPREHENSIVE METABOLIC [id number] 00:00:00 Test Item Value Reference Range Interpretation Comments GLUCOSE (test code = 2217) 259 MG/DL BUN (test code = 2208) 17 MG/DL CREATININE (test code = 2214) 0.72 MG/DL eGFR (2020 CKD-EPI) (test 106 ML/MIN/1.73 code = 59292) CALC BUN/CREAT (test code = 24 RATIO [...] code = 2219) 38 U/L COMPREHENSIVE METABOLIC [id number] 00:00:00 Test Item Value Reference Range Interpretation Comments GLUCOSE (test code = 2217) 259 MG/DL BUN (test code = 2208) 17 MG/DL CREATININE (test code = 2214) 0.72 MG/DL eGFR (2020 CKD-EPI) (test 106 ML/MIN/1.73 code = 83795) CALC BUN/CREAT (test code = 24 RATIO [...] (test code = 2219) 38 U/L LIPID [id number] 00:00:00 Test Item Value Reference Range Interpretation Comments CHOLESTEROL (test code = 2210) 196 MG/DL TRIGLYCERIDES (test code = 2232) 500 MG/DL HDL CHOLESTEROL (test code = 31 MG/DL 2220) CALC LDL CHOL (test code = 2237) (NOTE) MG/DL RISK RATIO LDL/HDL (test code = (NOTE) RATIO 2238) LIPID [id number] 00:00:00 Test Item Value Reference Range Interpretation Comments CHOLESTEROL (test code = 2210) 196 MG/DL TRIGLYCERIDES (test code = 2232) 500 MG/DL HDL CHOLESTEROL (test code = 31 MG/DL 2220) CALC LDL CHOL (test code = 2237) (NOTE) MG/DL RISK RATIO LDL/HDL (test code = (NOTE) RATIO 2238) HEMOGLOBIN [id number] 00:00:00 Test Item Value Reference Range Interpretation Comments HEMOGLOBIN A1c (test code = 48660) 11.0 % HEMOGLOBIN [id number] 00:00:00 Test Item Value Reference Range Interpretation Comments HEMOGLOBIN A1c (test code = 84041) 11.0 % HEMOGLOBIN [id number] 00:00:00 Test Item Value Reference Range Interpretation Comments HEMOGLOBIN A1c (test code = 24524) 11.0 % COMPREHENSIVE METABOLIC [id number] 00:00:00 Test Item Value Reference Range Interpretation Comments GLUCOSE (test code = 2217) 259 MG/DL BUN (test code = 2208) 17 MG/DL CREATININE (test code = 2214) 0.72 MG/DL eGFR (2020 CKD-EPI) (test 106 ML/MIN/1.73 code = 55189) CALC BUN/CREAT (test code = 24 RATIO [...] code = 2219) 38 U/L COMPREHENSIVE METABOLIC [id number] 00:00:00 Test Item Value Reference Range Interpretation Comments GLUCOSE (test code = 2217) 259 MG/DL BUN (test code = 2208) 17 MG/DL CREATININE (test code = 2214) 0.72 MG/DL eGFR (2020 CKD-EPI) (test 106 ML/MIN/1.73 code = 40486) CALC BUN/CREAT (test code = 24 RATIO [...] (test code = 2219) 38 U/L LIPID [id number] 00:00:00 Test Item Value Reference Range Interpretation Comments CHOLESTEROL (test code = 2210) 196 MG/DL TRIGLYCERIDES (test code = 2232) 500 MG/DL HDL CHOLESTEROL (test code = 31 MG/DL 2220) CALC LDL CHOL (test code = 2237) (NOTE) MG/DL RISK RATIO LDL/HDL (test code = (NOTE) RATIO 2238) LIPID [id number] 00:00:00 Test Item Value Reference Range Interpretation Comments CHOLESTEROL (test code = 2210) 196 MG/DL TRIGLYCERIDES (test code = 2232) 500 MG/DL HDL CHOLESTEROL (test code = 31 MG/DL 2220) CALC LDL CHOL (test code = 2237) (NOTE) MG/DL RISK RATIO LDL/HDL (test code = (NOTE) RATIO 2238) HEMOGLOBIN [id number] 00:00:00 Test Item Value Reference Range Interpretation Comments HEMOGLOBIN A1c (test code = 03666) 11.0 % HEMOGLOBIN [id number] 00:00:00 Test Item Value Reference Range Interpretation Comments HEMOGLOBIN A1c (test code = 72997) 11.0 % HEMOGLOBIN [id number] 00:00:00 Test Item Value Reference Range Interpretation Comments HEMOGLOBIN A1c (test code = 59075) 11.0 % VAGINAL PATHOGENS DNA [id number] 15:33:03 Test Item Value Reference Range Interpretation Comments ANDIE SPECIES (test NEGATIVE NEGATIVE code = ) G. VAGINALIS (test NEGATIVE NEGATIVE code = ) T. VAGINALIS (test NEGATIVE NEGATIVE UNLESS O THERWISE code = ) INDICATED, ALL TESTING [facility] [address] [place] [address] 4 LABORATORY DIRE CTOR: NOAH TODD M.D. CLIA NUMBER [id number] [place] [id number] VAGINAL PATHOGENS DNA [id number] 00:00:00 Test Item Value Reference Range Interpretation Comments ANDIE SPECIES (test code = 51841) NEGATIVE G. VAGINALIS (test code = 79375) NEGATIVE T. VAGINALIS (test code = 33747) NEGATIVE VAGINAL PATHOGENS DNA [id number] 00:00:00 Test Item Value Reference Range Interpretation Comments ANDIE SPECIES (test code = 36145) NEGATIVE G. VAGINALIS (test code = 18308) NEGATIVE T. VAGINALIS (test code = 70413) NEGATIVE VAGINAL PATHOGENS DNA [id number] 00:00:00 Test Item Value Reference Range Interpretation Comments ANDIE SPECIES (test code = 91645) NEGATIVE G. VAGINALIS (test code = 57886) NEGATIVE T. VAGINALIS (test code = 46012) NEGATIVE VAGINAL PATHOGENS DNA [id number] 00:00:00 Test Item Value Reference Range Interpretation Comments ANDIE SPECIES (test code = 63139) NEGATIVE G. VAGINALIS (test code = 56952) NEGATIVE T. VAGINALIS (test code = 85160) NEGATIVE VAGINAL PATHOGENS DNA [id number] 00:00:00 Test Item Value Reference Range Interpretation Comments ANDIE SPECIES (test code = 02431) NEGATIVE G. VAGINALIS (test code = 37326) NEGATIVE T. VAGINALIS (test code = 24543) NEGATIVE VAGINAL PATHOGENS DNA [id number] 00:00:00 Test Item Value Reference Range Interpretation Comments ANDIE SPECIES (test code = 52776) NEGATIVE G. VAGINALIS (test code = 27026) NEGATIVE T. VAGINALIS (test code = 63652) NEGATIVE VAGINAL PATHOGENS DNA [id number] 00:00:00 Test Item Value Reference Range Interpretation Comments ANDIE SPECIES (test code = 63921) NEGATIVE G. VAGINALIS (test code = 97884) NEGATIVE T. VAGINALIS (test code = 12347) NEGATIVE VAGINAL PATHOGENS DNA [id number] 00:00:00 Test Item Value Reference Range Interpretation Comments ANDIE SPECIES (test code = 78247) NEGATIVE G. VAGINALIS (test code = 40892) NEGATIVE T. VAGINALIS (test code = 38162) NEGATIVE VAGINAL PATHOGENS DNA [id number] 00:00:00 Test Item Value Reference Range Interpretation Comments ANDIE SPECIES (test code = 77091) NEGATIVE G. VAGINALIS (test code = 47602) NEGATIVE T. VAGINALIS (test code = 78599) NEGATIVE VAGINAL PATHOGENS DNA [id number] 00:00:00 Test Item Value Reference Range Interpretation Comments ANDIE SPECIES (test code = ) NEGATIVE G. VAGINALIS (test code = ) NEGATIVE T. VAGINALIS (test code = ) NEGATIVE CULTURE, [id number] 14:55:44SPECIMEN NUMBER: [id number] CULTURE, URINE SPECIMEN NUMBER: [id number] SPECIMEN COMMENT: URINE SOURCE: URINE REPORT STATUS: FINAL FINAL REPORT: 04/11/2022 <10,000 CFU/ML UROGENITAL NORMA PRESENT NO C OMMON PATHOGENSCULTURE, [id number] 00:00:00 Test Item Value Reference Range Interpretation Comments CULTURE, URINE (test SPECIMEN NUMBER: code = 69048) [id number] CULTURE, [id number] 00:00:00 Test Item Value Reference Range Interpretation Comments CULTURE, URINE (test SPECIMEN NUMBER: code = 87847) [id number] CULTURE, [id number] 00:00:00 Test Item Value Reference Range Interpretation Comments CULTURE, URINE (test SPECIMEN NUMBER: code = 90206) [id number] CULTURE, [id number] 00:00:00 Test Item Value Reference Range Interpretation Comments CULTURE, URINE (test SPECIMEN NUMBER: code = 43195) [id number] CULTURE, [id number] 00:00:00 Test Item Value Reference Range Interpretation Comments CULTURE, URINE (test SPECIMEN NUMBER: code = 77250) [id number] CULTURE, [id number] 00:00:00 Test Item Value Reference Range Interpretation Comments CULTURE, URINE (test SPECIMEN NUMBER: code = 12882) [id number] CULTURE, [id number] 00:00:00 Test Item Value Reference Range Interpretation Comments CULTURE, URINE (test SPECIMEN NUMBER: code = 04545) [id number] CULTURE, [id number] 00:00:00 Test Item Value Reference Range Interpretation Comments CULTURE, URINE (test SPECIMEN NUMBER: code = 72396) [id number] CULTURE, [id number] 00:00:00 Test Item Value Reference Range Interpretation Comments CULTURE, URINE (test SPECIMEN NUMBER: code = 05713) [id number] CULTURE, [id number] 00:00:00 Test Item Value Reference Range Interpretation Comments CULTURE, URINE (test SPECIMEN NUMBER: code = 42424) [id number] CULTURE, [id number] 00:00:00 Test Item Value Reference Range Interpretation Comments CULTURE, URINE (test SPECIMEN NUMBER: code = 13684) [id number] CULTURE, [id number] 00:00:00 Test Item Value Reference Range Interpretation Comments CULTURE, URINE (test SPECIMEN NUMBER: code = 65468) [id number] CULTURE, [id number] 00:00:00 Test Item Value Reference Range Interpretation Comments CULTURE, URINE (test SPECIMEN NUMBER: code = 90269) [id number] CULTURE, [id number] 00:00:00 Test Item Value Reference Range Interpretation Comments CULTURE, URINE (test SPECIMEN NUMBER: code = 39479) [id number] CBC W/AUTO DIFF WITH [id number] 02:13:01 Test Item Value Reference Range Interpretation [...] message] code = 1065) WBC'S The system [employer] generated this result transmitted ref erence range: [...] 0.00-0.11 UNLESS O THERWISE (test code = 87182) INDICATE D, ALL TESTING PERFORM ED ATCLINICAL PATH OLOGY LABORATORIES, [facility]. [address] [place] [address] [facility] DIRECTOR: NOAH DICKENS M.D. CLIA NUMBER [id number] CAP ACCREDITATION N O. [id number] CBC W/AUTO [id number] 00:00:00 Test Item Value Reference Range Interpretation [...] NUCLEATED RBCS (test code = 0.00 K/UL 99925) CBC W/AUTO [id number] 00:00:00 Test Item Value Reference Range Interpretation [...] NUCLEATED RBCS (test code = 0.00 K/UL 66283) CBC W/AUTO [id number] 00:00:00 Test Item Value Reference Range Interpretation [...] NUCLEATED RBCS (test code = 0.00 K/UL 16896) CBC W/AUTO [id number] 00:00:00 Test Item Value Reference Range Interpretation [...] NUCLEATED RBCS (test code = 0.00 K/UL 00748) CBC W/AUTO [id number] 00:00:00 Test Item Value Reference Range Interpretation [...] NUCLEATED RBCS (test code = 0.00 K/UL 82284) CBC W/AUTO [id number] 00:00:00 Test Item Value Reference Range Interpretation [...] NUCLEATED RBCS (test code = 0.00 K/UL 84806) CBC W/AUTO [id number] 00:00:00 Test Item Value Reference Range Interpretation [...] NUCLEATED RBCS (test code = 0.00 K/UL 12189) CBC W/AUTO [id number] 00:00:00 Test Item Value Reference Range Interpretation [...] NUCLEATED RBCS (test code = 0.00 K/UL 20621) CBC W/AUTO [id number] 00:00:00 Test Item Value Reference Range Interpretation [...] NUCLEATED RBCS (test code = 0.00 K/UL 78000) CBC W/AUTO [id number] 00:00:00 Test Item Value Reference Range Interpretation [...] NUCLEATED RBCS (test code = 0.00 K/UL 79244) CBC W/AUTO [id number] 00:00:00 Test Item Value Reference Range Interpretation [...] NUCLEATED RBCS (test code = 0.00 K/UL 84440) CBC W/AUTO [id number] 00:00:00 Test Item Value Reference Range Interpretation [...] NUCLEATED RBCS (test code = 0.00 K/UL 93766) CBC W/AUTO [id number] 00:00:00 Test Item Value Reference Range Interpretation [...] NUCLEATED RBCS (test code = 0.00 K/UL 21439) CBC W/AUTO [id number] 00:00:00 Test Item Value Reference Range Interpretation [...] NUCLEATED RBCS (test code = 0.00 K/UL 08726) CBC W/AUTO [id number] 00:00:00 Test Item Value Reference Range Interpretation [...] NUCLEATED RBCS (test code = 0.00 K/UL 76227) CBC W/AUTO [id number] 00:00:00 Test Item Value Reference Range Interpretation [...] NUCLEATED RBCS (test code = 0.00 K/UL 51318) CBC W/AUTO [id number] 00:00:00 Test Item Value Reference Range Interpretation [...] NUCLEATED RBCS (test code = 0.00 K/UL 42098) CBC W/AUTO [id number] 00:00:00 Test Item Value Reference Range Interpretation [...] NUCLEATED RBCS (test code = 0.00 K/UL 30566) CBC W/AUTO [id number] 00:00:00 Test Item Value Reference Range Interpretation [...] NUCLEATED RBCS (test code = 0.00 K/UL 01190) CBC W/AUTO [id number] 00:00:00 Test Item Value Reference Range Interpretation [...] NUCLEATED RBCS (test code = 0.00 K/UL 44039) CBC W/AUTO [id number] 00:00:00 Test Item Value Reference Range Interpretation [...] NUCLEATED RBCS (test code = 0.00 K/UL 51146) COMPREHENSIVE METABOLIC [id number] 04:26:32 Test Item Value Reference Range Interpretation Comments GLUCOSE (test code = 122 MG/DL 70-99 H 2216) BUN (test code = 11 MG/DL -2207) CREATININE (test 0.65 MG/DL 0.60-1.30 code = 2214) eGFR (2020 CKD-EPI) 111 >60 (test code = 43647) ML/MIN/1.73 CALC BUN/CREAT (test 17 RATIO - code = 2235) SODIUM (test code = 145 MEQ/L 227-548 7134) POTASSIUM (test code 4.2 MEQ/L 3.5-5.4 = 2228) CHLORIDE (test code 107 MEQ/L 95-107 = 2215) CARBON DIOXIDE (test 26 MEQ/L 19-31 code = 2206) CALCIUM (test code = 9.8 MG/DL 8.5-10.5 2208) PROTEIN, TOTAL (test 7.5 G/DL 6.1-8.3 code = 222) ALBUMIN (test code = 4.5 G/DL 3.5-5.2 2200) CALC GLOBULIN (test 3.0 G/DL 1.9-3.7 code = 2240) CALC A/G RATIO (test 1.5 RATIO 1.0-2.6 code = 223) BILIRUBIN, TOTAL 0.5 MG/DL See_Comment [Automated message] (test code = 220) The syste m which generated this result transmit faith reference range : <=1.2. The refe rence range was not u sed to interpret th is result as normal/abnormal . ALKALINE PHOSPHATASE 62 U/L 40-115 (test code = 2203) AST (test code = 24 U/L 9-40 2217) ALT (test code = 38 U/L 5-40 2218) LIPID [id number] 04:26:32 Test Item Value Reference Range Interpretation [...] MOREINFORMATION , SEE CLIENT ANNOUNCE MENT AT [email or web address] RISK RATIO LDL/HDL 2.84 RATIO <3.22 (test code = 2238) HEMOGLOBIN [id number] 04:03:31 Test Item Value Reference Range Interpretation Comments HEMOGLOBIN A1c (test 10.9 % 4.2-5.6 H [employer] AN DIABETES code = 51432) ASSOCIATION [employer] FOR HGB A1C: PREDIABETES/INC REASED [...] TESTING PER FORMED ATCLINICAL PATH OLOGY LABORATORIES, [facility]. [address] [place] [address] LABORATORY DIRE CTOR: Carlos Enrique BERNARD. CLIA NUMBER [id number] CAP ACCREDITATION N O. [id number] COMPREHENSIVE METABOLIC [id number] 00:00:00 Test Item Value Reference Range Interpretation Comments GLUCOSE (test code = 2217) 122 MG/DL BUN (test code = 2208) 11 MG/DL CREATININE (test code = 2214) 0.65 MG/DL eGFR (2020 CKD-EPI) (test 111 ML/MIN/1.73 code = 48640) CALC BUN/CREAT (test code = 17 RATIO [...] code = 2219) 38 U/L COMPREHENSIVE METABOLIC [id number] 00:00:00 Test Item Value Reference Range Interpretation Comments GLUCOSE (test code = 2217) 122 MG/DL BUN (test code = 2208) 11 MG/DL CREATININE (test code = 2214) 0.65 MG/DL eGFR (2020 CKD-EPI) (test 111 ML/MIN/1.73 code = 16879) CALC BUN/CREAT (test code = 17 RATIO [...] (test code = 2219) 38 U/L LIPID [id number] 00:00:00 Test Item Value Reference Range Interpretation Comments CHOLESTEROL (test code = 2210) 169 MG/DL TRIGLYCERIDES (test code = 2232) 346 MG/DL HDL CHOLESTEROL (test code = 2220) 32 MG/DL CALC LDL CHOL (test code = 2237) 91 MG/DL RISK RATIO LDL/HDL (test code = 2.84 RATIO 2238) LIPID [id number] 00:00:00 Test Item Value Reference Range Interpretation Comments CHOLESTEROL (test code = 2210) 169 MG/DL TRIGLYCERIDES (test code = 2232) 346 MG/DL HDL CHOLESTEROL (test code = 2220) 32 MG/DL CALC LDL CHOL (test code = 2237) 91 MG/DL RISK RATIO LDL/HDL (test code = 2.84 RATIO 2238) HEMOGLOBIN [id number] 00:00:00 Test Item Value Reference Range Interpretation Comments HEMOGLOBIN A1c (test code = 81534) 10.9 % HEMOGLOBIN [id number] 00:00:00 Test Item Value Reference Range Interpretation Comments HEMOGLOBIN A1c (test code = 80204) 10.9 % HEMOGLOBIN [id number] 00:00:00 Test Item Value Reference Range Interpretation Comments HEMOGLOBIN A1c (test code = 74261) 10.9 % COMPREHENSIVE METABOLIC [id number] 00:00:00 Test Item Value Reference Range Interpretation Comments GLUCOSE (test code = 2217) 122 MG/DL BUN (test code = 2208) 11 MG/DL CREATININE (test code = 2214) 0.65 MG/DL eGFR (2020 CKD-EPI) (test 111 ML/MIN/1.73 code = 86179) CALC BUN/CREAT (test code = 17 RATIO [...] code = 2219) 38 U/L COMPREHENSIVE METABOLIC [id number] 00:00:00 Test Item Value Reference Range Interpretation Comments GLUCOSE (test code = 2217) 122 MG/DL BUN (test code = 2208) 11 MG/DL CREATININE (test code = 2214) 0.65 MG/DL eGFR (2020 CKD-EPI) (test 111 ML/MIN/1.73 code = 06916) CALC BUN/CREAT (test code = 17 RATIO [...] (test code = 2219) 38 U/L LIPID [id number] 00:00:00 Test Item Value Reference Range Interpretation Comments CHOLESTEROL (test code = 2210) 169 MG/DL TRIGLYCERIDES (test code = 2232) 346 MG/DL HDL CHOLESTEROL (test code = 2220) 32 MG/DL CALC LDL CHOL (test code = 2237) 91 MG/DL RISK RATIO LDL/HDL (test code = 2.84 RATIO 2238) LIPID [id number] 00:00:00 Test Item Value Reference Range Interpretation Comments CHOLESTEROL (test code = 2210) 169 MG/DL TRIGLYCERIDES (test code = 2232) 346 MG/DL HDL CHOLESTEROL (test code = 2220) 32 MG/DL CALC LDL CHOL (test code = 2237) 91 MG/DL RISK RATIO LDL/HDL (test code = 2.84 RATIO 2238) HEMOGLOBIN [id number] 00:00:00 Test Item Value Reference Range Interpretation Comments HEMOGLOBIN A1c (test code = 01019) 10.9 % HEMOGLOBIN [id number] 00:00:00 Test Item Value Reference Range Interpretation Comments HEMOGLOBIN A1c (test code = 58667) 10.9 % HEMOGLOBIN [id number] 00:00:00 Test Item Value Reference Range Interpretation Comments HEMOGLOBIN A1c (test code = 39312) 10.9 % COMPREHENSIVE METABOLIC [id number] 00:00:00 Test Item Value Reference Range Interpretation Comments GLUCOSE (test code = 2217) 122 MG/DL BUN (test code = 2208) 11 MG/DL CREATININE (test code = 2214) 0.65 MG/DL eGFR (2020 CKD-EPI) (test 111 ML/MIN/1.73 code = 83648) CALC BUN/CREAT (test code = 17 RATIO [...] code = 2219) 38 U/L COMPREHENSIVE METABOLIC [id number] 00:00:00 Test Item Value Reference Range Interpretation Comments GLUCOSE (test code = 2217) 122 MG/DL BUN (test code = 2208) 11 MG/DL CREATININE (test code = 2214) 0.65 MG/DL eGFR (2020 CKD-EPI) (test 111 ML/MIN/1.73 code = 60191) CALC BUN/CREAT (test code = 17 RATIO [...] (test code = 2219) 38 U/L LIPID [id number] 00:00:00 Test Item Value Reference Range Interpretation Comments CHOLESTEROL (test code = 2210) 169 MG/DL TRIGLYCERIDES (test code = 2232) 346 MG/DL HDL CHOLESTEROL (test code = 2220) 32 MG/DL CALC LDL CHOL (test code = 2237) 91 MG/DL RISK RATIO LDL/HDL (test code = 2.84 RATIO 2238) LIPID [id number] 00:00:00 Test Item Value Reference Range Interpretation Comments CHOLESTEROL (test code = 2210) 169 MG/DL TRIGLYCERIDES (test code = 2232) 346 MG/DL HDL CHOLESTEROL (test code = 2220) 32 MG/DL CALC LDL CHOL (test code = 2237) 91 MG/DL RISK RATIO LDL/HDL (test code = 2.84 RATIO 2238) HEMOGLOBIN [id number] 00:00:00 Test Item Value Reference Range Interpretation Comments HEMOGLOBIN A1c (test code = 97013) 10.9 % HEMOGLOBIN [id number] 00:00:00 Test Item Value Reference Range Interpretation Comments HEMOGLOBIN A1c (test code = 25614) 10.9 % HEMOGLOBIN [id number] 00:00:00 Test Item Value Reference Range Interpretation Comments HEMOGLOBIN A1c (test code = 13984) 10.9 % COMPREHENSIVE METABOLIC [id number] 00:00:00 Test Item Value Reference Range Interpretation Comments GLUCOSE (test code = 2217) 122 MG/DL BUN (test code = 2208) 11 MG/DL CREATININE (test code = 2214) 0.65 MG/DL eGFR (2020 CKD-EPI) (test 111 ML/MIN/1.73 code = 02492) CALC BUN/CREAT (test code = 17 RATIO [...] code = 2219) 38 U/L COMPREHENSIVE METABOLIC [id number] 00:00:00 Test Item Value Reference Range Interpretation Comments GLUCOSE (test code = 2217) 122 MG/DL BUN (test code = 2208) 11 MG/DL CREATININE (test code = 2214) 0.65 MG/DL eGFR (2020 CKD-EPI) (test 111 ML/MIN/1.73 code = 88725) CALC BUN/CREAT (test code = 17 RATIO [...] (test code = 2219) 38 U/L LIPID [id number] 00:00:00 Test Item Value Reference Range Interpretation Comments CHOLESTEROL (test code = 2210) 169 MG/DL TRIGLYCERIDES (test code = 2232) 346 MG/DL HDL CHOLESTEROL (test code = 2220) 32 MG/DL CALC LDL CHOL (test code = 2237) 91 MG/DL RISK RATIO LDL/HDL (test code = 2.84 RATIO 2238) LIPID [id number] 00:00:00 Test Item Value Reference Range Interpretation Comments CHOLESTEROL (test code = 2210) 169 MG/DL TRIGLYCERIDES (test code = 2232) 346 MG/DL HDL CHOLESTEROL (test code = 2220) 32 MG/DL CALC LDL CHOL (test code = 2237) 91 MG/DL RISK RATIO LDL/HDL (test code = 2.84 RATIO 2238) HEMOGLOBIN [id number] 00:00:00 Test Item Value Reference Range Interpretation Comments HEMOGLOBIN A1c (test code = 27534) 10.9 % HEMOGLOBIN [id number] 00:00:00 Test Item Value Reference Range Interpretation Comments HEMOGLOBIN A1c (test code = 78792) 10.9 % HEMOGLOBIN [id number] 00:00:00 Test Item Value Reference Range Interpretation Comments HEMOGLOBIN A1c (test code = 85483) 10.9 % COMPREHENSIVE METABOLIC [id number] 00:00:00 Test Item Value Reference Range Interpretation Comments GLUCOSE (test code = 2217) 122 MG/DL BUN (test code = 2208) 11 MG/DL CREATININE (test code = 2214) 0.65 MG/DL eGFR (2020 CKD-EPI) (test 111 ML/MIN/1.73 code = 56722) CALC BUN/CREAT (test code = 17 RATIO [...] code = 2219) 38 U/L COMPREHENSIVE METABOLIC [id number] 00:00:00 Test Item Value Reference Range Interpretation Comments GLUCOSE (test code = 2217) 122 MG/DL BUN (test code = 2208) 11 MG/DL CREATININE (test code = 2214) 0.65 MG/DL eGFR (2020 CKD-EPI) (test 111 ML/MIN/1.73 code = 23809) CALC BUN/CREAT (test code = 17 RATIO [...] (test code = 2219) 38 U/L LIPID [id number] 00:00:00 Test Item Value Reference Range Interpretation Comments CHOLESTEROL (test code = 2210) 169 MG/DL TRIGLYCERIDES (test code = 2232) 346 MG/DL HDL CHOLESTEROL (test code = 2220) 32 MG/DL CALC LDL CHOL (test code = 2237) 91 MG/DL RISK RATIO LDL/HDL (test code = 2.84 RATIO 2238) LIPID [id number] 00:00:00 Test Item Value Reference Range Interpretation Comments CHOLESTEROL (test code = 2210) 169 MG/DL TRIGLYCERIDES (test code = 2232) 346 MG/DL HDL CHOLESTEROL (test code = 2220) 32 MG/DL CALC LDL CHOL (test code = 2237) 91 MG/DL RISK RATIO LDL/HDL (test code = 2.84 RATIO 2238) HEMOGLOBIN [id number] 00:00:00 Test Item Value Reference Range Interpretation Comments HEMOGLOBIN A1c (test code = 57414) 10.9 % HEMOGLOBIN [id number] 00:00:00 Test Item Value Reference Range Interpretation Comments HEMOGLOBIN A1c (test code = 80298) 10.9 % HEMOGLOBIN [id number] 00:00:00 Test Item Value Reference Range Interpretation Comments HEMOGLOBIN A1c (test code = 14610) 10.9 % COMPREHENSIVE METABOLIC [id number] 00:00:00 Test Item Value Reference Range Interpretation Comments GLUCOSE (test code = 2217) 122 MG/DL BUN (test code = 2208) 11 MG/DL CREATININE (test code = 2214) 0.65 MG/DL eGFR (2020 CKD-EPI) (test 111 ML/MIN/1.73 code = 21848) CALC BUN/CREAT (test code = 17 RATIO [...] code = 2219) 38 U/L COMPREHENSIVE METABOLIC [id number] 00:00:00 Test Item Value Reference Range Interpretation Comments GLUCOSE (test code = 2217) 122 MG/DL BUN (test code = 2208) 11 MG/DL CREATININE (test code = 2214) 0.65 MG/DL eGFR (2020 CKD-EPI) (test 111 ML/MIN/1.73 code = 52524) CALC BUN/CREAT (test code = 17 RATIO [...] (test code = 2219) 38 U/L LIPID [id number] 00:00:00 Test Item Value Reference Range Interpretation Comments CHOLESTEROL (test code = 2210) 169 MG/DL TRIGLYCERIDES (test code = 2232) 346 MG/DL HDL CHOLESTEROL (test code = 2220) 32 MG/DL CALC LDL CHOL (test code = 2237) 91 MG/DL RISK RATIO LDL/HDL (test code = 2.84 RATIO 2238) LIPID [id number] 00:00:00 Test Item Value Reference Range Interpretation Comments CHOLESTEROL (test code = 2210) 169 MG/DL TRIGLYCERIDES (test code = 2232) 346 MG/DL HDL CHOLESTEROL (test code = 2220) 32 MG/DL CALC LDL CHOL (test code = 2237) 91 MG/DL RISK RATIO LDL/HDL (test code = 2.84 RATIO 2238) HEMOGLOBIN [id number] 00:00:00 Test Item Value Reference Range Interpretation Comments HEMOGLOBIN A1c (test code = 84564) 10.9 % HEMOGLOBIN [id number] 00:00:00 Test Item Value Reference Range Interpretation Comments HEMOGLOBIN A1c (test code = 90360) 10.9 % HEMOGLOBIN [id number] 00:00:00 Test Item Value Reference Range Interpretation Comments HEMOGLOBIN A1c (test code = 18898) 10.9 % COMPREHENSIVE METABOLIC [id number] 00:00:00 Test Item Value Reference Range Interpretation Comments GLUCOSE (test code = 2217) 122 MG/DL BUN (test code = 2208) 11 MG/DL CREATININE (test code = 2214) 0.65 MG/DL eGFR (2020 CKD-EPI) (test 111 ML/MIN/1.73 code = 19225) CALC BUN/CREAT (test code = 17 RATIO [...] code = 2219) 38 U/L COMPREHENSIVE METABOLIC [id number] 00:00:00 Test Item Value Reference Range Interpretation Comments GLUCOSE (test code = 2217) 122 MG/DL BUN (test code = 2208) 11 MG/DL CREATININE (test code = 2214) 0.65 MG/DL eGFR (2020 CKD-EPI) (test 111 ML/MIN/1.73 code = 36228) CALC BUN/CREAT (test code = 17 RATIO [...] (test code = 2219) 38 U/L LIPID [id number] 00:00:00 Test Item Value Reference Range Interpretation Comments CHOLESTEROL (test code = 2210) 169 MG/DL TRIGLYCERIDES (test code = 2232) 346 MG/DL HDL CHOLESTEROL (test code = 2220) 32 MG/DL CALC LDL CHOL (test code = 2237) 91 MG/DL RISK RATIO LDL/HDL (test code = 2.84 RATIO 2238) LIPID [id number] 00:00:00 Test Item Value Reference Range Interpretation Comments CHOLESTEROL (test code = 2210) 169 MG/DL TRIGLYCERIDES (test code = 2232) 346 MG/DL HDL CHOLESTEROL (test code = 2220) 32 MG/DL CALC LDL CHOL (test code = 2237) 91 MG/DL RISK RATIO LDL/HDL (test code = 2.84 RATIO 2238) HEMOGLOBIN [id number] 00:00:00 Test Item Value Reference Range Interpretation Comments HEMOGLOBIN A1c (test code = 86136) 10.9 % HEMOGLOBIN [id number] 00:00:00 Test Item Value Reference Range Interpretation Comments HEMOGLOBIN A1c (test code = 47976) 10.9 % HEMOGLOBIN [id number] 00:00:00 Test Item Value Reference Range Interpretation Comments HEMOGLOBIN A1c (test code = 69948) 10.9 % COMPREHENSIVE METABOLIC [id number] 00:00:00 Test Item Value Reference Range Interpretation Comments GLUCOSE (test code = 2217) 122 MG/DL BUN (test code = 2208) 11 MG/DL CREATININE (test code = 2214) 0.65 MG/DL eGFR (2020 CKD-EPI) (test 111 ML/MIN/1.73 code = 52444) CALC BUN/CREAT (test code = 17 RATIO [...] code = 2219) 38 U/L COMPREHENSIVE METABOLIC [id number] 00:00:00 Test Item Value Reference Range Interpretation Comments GLUCOSE (test code = 2217) 122 MG/DL BUN (test code = 2208) 11 MG/DL CREATININE (test code = 2214) 0.65 MG/DL eGFR (2020 CKD-EPI) (test 111 ML/MIN/1.73 code = 26921) CALC BUN/CREAT (test code = 17 RATIO [...] (test code = 2219) 38 U/L LIPID [id number] 00:00:00 Test Item Value Reference Range Interpretation Comments CHOLESTEROL (test code = 2210) 169 MG/DL TRIGLYCERIDES (test code = 2232) 346 MG/DL HDL CHOLESTEROL (test code = 2220) 32 MG/DL CALC LDL CHOL (test code = 2237) 91 MG/DL RISK RATIO LDL/HDL (test code = 2.84 RATIO 2238) LIPID [id number] 00:00:00 Test Item Value Reference Range Interpretation Comments CHOLESTEROL (test code = 2210) 169 MG/DL TRIGLYCERIDES (test code = 2232) 346 MG/DL HDL CHOLESTEROL (test code = 2220) 32 MG/DL CALC LDL CHOL (test code = 2237) 91 MG/DL RISK RATIO LDL/HDL (test code = 2.84 RATIO 2238) HEMOGLOBIN [id number] 00:00:00 Test Item Value Reference Range Interpretation Comments HEMOGLOBIN A1c (test code = 05484) 10.9 % HEMOGLOBIN [id number] 00:00:00 Test Item Value Reference Range Interpretation Comments HEMOGLOBIN A1c (test code = 43806) 10.9 % HEMOGLOBIN [id number] 00:00:00 Test Item Value Reference Range Interpretation Comments HEMOGLOBIN A1c (test code = 15859) 10.9 % COMPREHENSIVE METABOLIC [id number] 00:00:00 Test Item Value Reference Range Interpretation Comments GLUCOSE (test code = 2217) 122 MG/DL BUN (test code = 2208) 11 MG/DL CREATININE (test code = 2214) 0.65 MG/DL eGFR (2020 CKD-EPI) (test 111 ML/MIN/1.73 code = 87361) CALC BUN/CREAT (test code = 17 RATIO [...] code = 2219) 38 U/L COMPREHENSIVE METABOLIC [id number] 00:00:00 Test Item Value Reference Range Interpretation Comments GLUCOSE (test code = 2217) 122 MG/DL BUN (test code = 2208) 11 MG/DL CREATININE (test code = 2214) 0.65 MG/DL eGFR (2020 CKD-EPI) (test 111 ML/MIN/1.73 code = 92211) CALC BUN/CREAT (test code = 17 RATIO [...] (test code = 2219) 38 U/L LIPID [id number] 00:00:00 Test Item Value Reference Range Interpretation Comments CHOLESTEROL (test code = 2210) 169 MG/DL TRIGLYCERIDES (test code = 2232) 346 MG/DL HDL CHOLESTEROL (test code = 2220) 32 MG/DL CALC LDL CHOL (test code = 2237) 91 MG/DL RISK RATIO LDL/HDL (test code = 2.84 RATIO 2238) LIPID [id number] 00:00:00 Test Item Value Reference Range Interpretation Comments CHOLESTEROL (test code = 2210) 169 MG/DL TRIGLYCERIDES (test code = 2232) 346 MG/DL HDL CHOLESTEROL (test code = 2220) 32 MG/DL CALC LDL CHOL (test code = 2237) 91 MG/DL RISK RATIO LDL/HDL (test code = 2.84 RATIO 2238) HEMOGLOBIN [id number] 00:00:00 Test Item Value Reference Range Interpretation Comments HEMOGLOBIN A1c (test code = 16048) 10.9 % HEMOGLOBIN [id number] 00:00:00 Test Item Value Reference Range Interpretation Comments HEMOGLOBIN A1c (test code = 39022) 10.9 % HEMOGLOBIN [id number] 00:00:00 Test Item Value Reference Range Interpretation Comments HEMOGLOBIN A1c (test code = 25295) 10.9 % VITAMIN D, 25 [id number] 04:13:44 Test Item Value Reference Range Interpretation [...] . . . . . NG/ML <20 SUBO PTIMAL . . . . . . . . . . . . . . . NG/ML 20-29 OPT IMAL . . . . . . . . . . . . . . . . . NG/ML 30-100 UN LESS OTHERWISE INDIC ATED, ALL TESTING PERFORM ED ATCLINICAL PATH [facility] [address] [place] [id number] LABORATORY DIRE CTOR: Carlos Enrique BERNARD. CLIA NUMBER [id number] CAP ACCREDITATION N O. [id number] HIV 1/2 4TH GEN, RFLX [id number] 03:26:41 Test Item Value Reference Range Interpretation Comments HIV 1/2 4TH GEN, RFLX CONF (test NON-REACTIVE NON-REACTIVE code = 3514) ALBUMIN, URINE, [id number] 02:46:02 Test Item Value Reference Range Interpretation Comments ALBUMIN, URINE, RANDOM (test code 10.2 MG/DL NOT ESTAB = 50435) MICROALBUMIN, [id number] 00:00:00 Test Item Value Reference Range Interpretation Comments ALBUMIN, URINE, RANDOM (test code 10.2 MG/DL = 18114) MICROALBUMIN, [id number] 00:00:00 Test Item Value Reference Range Interpretation Comments ALBUMIN, URINE, RANDOM (test code 10.2 MG/DL = 60574) HIV AB/AG COMBO RFLX [id number] 00:00:00 Test Item Value Reference Range Interpretation Comments HIV 1/2 4TH GEN, RFLX CONF (test NON-REACTIVE code = 3514) HIV AB/AG COMBO RFLX [id number] 00:00:00 Test Item Value Reference Range Interpretation Comments HIV 1/2 4TH GEN, RFLX CONF (test NON-REACTIVE code = 3514) VITAMIN D, 25 [id number] 00:00:00 Test Item Value Reference Range Interpretation Comments VITAMIN D, 25 OH (test code = 4958) 18 NG/ML VITAMIN D, 25 [id number] 00:00:00 Test Item Value Reference Range Interpretation Comments VITAMIN D, 25 OH (test code = 4958) 18 NG/ML MICROALBUMIN, [id number] 00:00:00 Test Item Value Reference Range Interpretation Comments ALBUMIN, URINE, RANDOM (test code 10.2 MG/DL = 57352) MICROALBUMIN, [id number] 00:00:00 Test Item Value Reference Range Interpretation Comments ALBUMIN, URINE, RANDOM (test code 10.2 MG/DL = 64785) HIV AB/AG COMBO RFLX [id number] 00:00:00 Test Item Value Reference Range Interpretation Comments HIV 1/2 4TH GEN, RFLX CONF (test NON-REACTIVE code = 3514) HIV AB/AG COMBO RFLX [id number] 00:00:00 Test Item Value Reference Range Interpretation Comments HIV 1/2 4TH GEN, RFLX CONF (test NON-REACTIVE code = 3514) VITAMIN D, 25 [id number] 00:00:00 Test Item Value Reference Range Interpretation Comments VITAMIN D, 25 OH (test code = 4958) 18 NG/ML VITAMIN D, 25 [id number] 00:00:00 Test Item Value Reference Range Interpretation Comments VITAMIN D, 25 OH (test code = 4958) 18 NG/ML MICROALBUMIN, [id number] 00:00:00 Test Item Value Reference Range Interpretation Comments ALBUMIN, URINE, RANDOM (test code 10.2 MG/DL = 12783) MICROALBUMIN, [id number] 00:00:00 Test Item Value Reference Range Interpretation Comments ALBUMIN, URINE, RANDOM (test code 10.2 MG/DL = 64820) HIV AB/AG COMBO RFLX [id number] 00:00:00 Test Item Value Reference Range Interpretation Comments HIV 1/2 4TH GEN, RFLX CONF (test NON-REACTIVE code = 3514) HIV AB/AG COMBO RFLX [id number] 00:00:00 Test Item Value Reference Range Interpretation Comments HIV 1/2 4TH GEN, RFLX CONF (test NON-REACTIVE code = 3514) VITAMIN D, 25 [id number] 00:00:00 Test Item Value Reference Range Interpretation Comments VITAMIN D, 25 OH (test code = 4958) 18 NG/ML VITAMIN D, 25 [id number] 00:00:00 Test Item Value Reference Range Interpretation Comments VITAMIN D, 25 OH (test code = 4958) 18 NG/ML MICROALBUMIN, [id number] 00:00:00 Test Item Value Reference Range Interpretation Comments ALBUMIN, URINE, RANDOM (test code 10.2 MG/DL = 18159) MICROALBUMIN, [id number] 00:00:00 Test Item Value Reference Range Interpretation Comments ALBUMIN, URINE, RANDOM (test code 10.2 MG/DL = 27882) HIV AB/AG COMBO RFLX [id number] 00:00:00 Test Item Value Reference Range Interpretation Comments HIV 1/2 4TH GEN, RFLX CONF (test NON-REACTIVE code = 3514) HIV AB/AG COMBO RFLX [id number] 00:00:00 Test Item Value Reference Range Interpretation Comments HIV 1/2 4TH GEN, RFLX CONF (test NON-REACTIVE code = 3514) VITAMIN D, 25 [id number] 00:00:00 Test Item Value Reference Range Interpretation Comments VITAMIN D, 25 OH (test code = 4958) 18 NG/ML VITAMIN D, 25 [id number] 00:00:00 Test Item Value Reference Range Interpretation Comments VITAMIN D, 25 OH (test code = 4958) 18 NG/ML MICROALBUMIN, [id number] 00:00:00 Test Item Value Reference Range Interpretation Comments ALBUMIN, URINE, RANDOM (test code 10.2 MG/DL = 46298) MICROALBUMIN, [id number] 00:00:00 Test Item Value Reference Range Interpretation Comments ALBUMIN, URINE, RANDOM (test code 10.2 MG/DL = 64610) HIV AB/AG COMBO RFLX [id number] 00:00:00 Test Item Value Reference Range Interpretation Comments HIV 1/2 4TH GEN, RFLX CONF (test NON-REACTIVE code = 3514) HIV AB/AG COMBO RFLX [id number] 00:00:00 Test Item Value Reference Range Interpretation Comments HIV 1/2 4TH GEN, RFLX CONF (test NON-REACTIVE code = 3514) VITAMIN D, 25 [id number] 00:00:00 Test Item Value Reference Range Interpretation Comments VITAMIN D, 25 OH (test code = 4958) 18 NG/ML VITAMIN D, 25 [id number] 00:00:00 Test Item Value Reference Range Interpretation Comments VITAMIN D, 25 OH (test code = 4958) 18 NG/ML MICROALBUMIN, [id number] 00:00:00 Test Item Value Reference Range Interpretation Comments ALBUMIN, URINE, RANDOM (test code 10.2 MG/DL = 09866) MICROALBUMIN, [id number] 00:00:00 Test Item Value Reference Range Interpretation Comments ALBUMIN, URINE, RANDOM (test code 10.2 MG/DL = 21384) HIV AB/AG COMBO RFLX [id number] 00:00:00 Test Item Value Reference Range Interpretation Comments HIV 1/2 4TH GEN, RFLX CONF (test NON-REACTIVE code = 3514) HIV AB/AG COMBO RFLX [id number] 00:00:00 Test Item Value Reference Range Interpretation Comments HIV 1/2 4TH GEN, RFLX CONF (test NON-REACTIVE code = 3514) VITAMIN D, 25 [id number] 00:00:00 Test Item Value Reference Range Interpretation Comments VITAMIN D, 25 OH (test code = 4958) 18 NG/ML VITAMIN D, 25 [id number] 00:00:00 Test Item Value Reference Range Interpretation Comments VITAMIN D, 25 OH (test code = 4958) 18 NG/ML MICROALBUMIN, [id number] 00:00:00 Test Item Value Reference Range Interpretation Comments ALBUMIN, URINE, RANDOM (test code 10.2 MG/DL = 06577) MICROALBUMIN, [id number] 00:00:00 Test Item Value Reference Range Interpretation Comments ALBUMIN, URINE, RANDOM (test code 10.2 MG/DL = 44833) HIV AB/AG COMBO RFLX [id number] 00:00:00 Test Item Value Reference Range Interpretation Comments HIV 1/2 4TH GEN, RFLX CONF (test NON-REACTIVE code = 3514) HIV AB/AG COMBO RFLX [id number] 00:00:00 Test Item Value Reference Range Interpretation Comments HIV 1/2 4TH GEN, RFLX CONF (test NON-REACTIVE code = 3514) VITAMIN D, 25 [id number] 00:00:00 Test Item Value Reference Range Interpretation Comments VITAMIN D, 25 OH (test code = 4958) 18 NG/ML VITAMIN D, 25 [id number] 00:00:00 Test Item Value Reference Range Interpretation Comments VITAMIN D, 25 OH (test code = 4958) 18 NG/ML MICROALBUMIN, [id number] 00:00:00 Test Item Value Reference Range Interpretation Comments ALBUMIN, URINE, RANDOM (test code 10.2 MG/DL = 93598) HIV AB/AG COMBO RFLX [id number] 00:00:00 Test Item Value Reference Range Interpretation Comments HIV 1/2 4TH GEN, RFLX CONF (test NON-REACTIVE code = 3514) MICROALBUMIN, [id number] 00:00:00 Test Item Value Reference Range Interpretation Comments ALBUMIN, URINE, RANDOM (test code 10.2 MG/DL = 40036) MICROALBUMIN, [id number] 00:00:00 Test Item Value Reference Range Interpretation Comments ALBUMIN, URINE, RANDOM (test code 10.2 MG/DL = 57611) HIV AB/AG COMBO RFLX [id number] 00:00:00 Test Item Value Reference Range Interpretation Comments HIV 1/2 4TH GEN, RFLX CONF (test NON-REACTIVE code = 3514) HIV AB/AG COMBO RFLX [id number] 00:00:00 Test Item Value Reference Range Interpretation Comments HIV 1/2 4TH GEN, RFLX CONF (test NON-REACTIVE code = 3514) VITAMIN D, 25 [id number] 00:00:00 Test Item Value Reference Range Interpretation Comments VITAMIN D, 25 OH (test code = 4958) 18 NG/ML VITAMIN D, 25 [id number] 00:00:00 Test Item Value Reference Range Interpretation Comments VITAMIN D, 25 OH (test code = 4958) 18 NG/ML VITAMIN D, 25 [id number] 00:00:00 Test Item Value Reference Range Interpretation Comments VITAMIN D, 25 OH (test code = 4958) 18 NG/ML MICROALBUMIN, [id number] 00:00:00 Test Item Value Reference Range Interpretation Comments ALBUMIN, URINE, RANDOM (test code 10.2 MG/DL = 05066) MICROALBUMIN, [id number] 00:00:00 Test Item Value Reference Range Interpretation Comments ALBUMIN, URINE, RANDOM (test code 10.2 MG/DL = 12746) HIV AB/AG COMBO RFLX [id number] 00:00:00 Test Item Value Reference Range Interpretation Comments HIV 1/2 4TH GEN, RFLX CONF (test NON-REACTIVE code = 3514) HIV AB/AG COMBO RFLX [id number] 00:00:00 Test Item Value Reference Range Interpretation Comments HIV 1/2 4TH GEN, RFLX CONF (test NON-REACTIVE code = 3514) VITAMIN D, 25 [id number] 00:00:00 Test Item Value Reference Range Interpretation Comments VITAMIN D, 25 OH (test code = 4958) 18 NG/ML VITAMIN D, 25 [id number] 00:00:00 Test Item Value Reference Range Interpretation Comments VITAMIN D, 25 OH (test code = 4958) 18 NG/ML MICROALBUMIN, [id number] 00:00:00 Test Item Value Reference Range Interpretation Comments ALBUMIN, URINE, RANDOM (test code 10.2 MG/DL = 61536) MICROALBUMIN, [id number] 00:00:00 Test Item Value Reference Range Interpretation Comments ALBUMIN, URINE, RANDOM (test code 10.2 MG/DL = 94578) HIV AB/AG COMBO RFLX [id number] 00:00:00 Test Item Value Reference Range Interpretation Comments HIV 1/2 4TH GEN, RFLX CONF (test NON-REACTIVE code = 3514) HIV AB/AG COMBO RFLX [id number] 00:00:00 Test Item Value Reference Range Interpretation Comments HIV 1/2 4TH GEN, RFLX CONF (test NON-REACTIVE code = 3514) VITAMIN D, 25 [id number] 00:00:00 Test Item Value Reference Range Interpretation Comments VITAMIN D, 25 OH (test code = 4958) 18 NG/ML VITAMIN D, 25 [id number] 00:00:00 Test Item Value Reference Range Interpretation Comments VITAMIN D, 25 OH (test code = 4958) 18 NG/ML LIPID [id number] 02:15:07 Test Item Value Reference Range Interpretation [...] MOREINFORMATION , SEE CLIENT ANNOUNCE MENT AT [email or web address] CalcLDL-C RISK RATIO LDL/HDL (NOTE) RATIO <3.22 UNABLE TO CALCULATE (test code = 2238) COMPREHENSIVE METABOLIC [id number] 02:15:07 Test Item Value Reference Range Interpretation Comments GLUCOSE (test code = 349 MG/DL 70-99 H 2216) BUN (test code = 17 MG/DL 12-28) CREATININE (test 0.80 MG/DL 0.60-1.30 code = 221) eGFR (2020 CKD-EPI) 94 ML/MIN/1.73 >60 (test code = 12045) CALC BUN/CREAT (test 21 RATIO - code = 2235) SODIUM (test code = 137 MEQ/L 630-102 6607) POTASSIUM (test code 4.2 MEQ/L 3.5-5.4 = [...] code = 39 U/L 5-40 2218) LIPID [id number] 00:00:00 Test Item Value Reference Range Interpretation Comments CHOLESTEROL (test code = 2210) 206 MG/DL TRIGLYCERIDES (test code = 2232) 1120 MG/DL HDL CHOLESTEROL (test code = 24 MG/DL 0) CALC LDL CHOL (test code = 2237) (NOTE) MG/DL RISK RATIO LDL/HDL (test code = (NOTE) RATIO 2238) LIPID [id number] 00:00:00 Test Item Value Reference Range Interpretation Comments CHOLESTEROL (test code = 2210) 206 MG/DL TRIGLYCERIDES (test code = 2232) 1120 MG/DL HDL CHOLESTEROL (test code = 24 MG/DL 0) CALC LDL CHOL (test code = 2237) (NOTE) MG/DL RISK RATIO LDL/HDL (test code = (NOTE) RATIO 2238) COMPREHENSIVE METABOLIC [id number] 00:00:00 Test Item Value Reference Range Interpretation Comments GLUCOSE (test code = 2217) 349 MG/DL BUN (test code = 2208) 17 MG/DL CREATININE (test code = 2214) 0.80 MG/DL eGFR (2020 CKD-EPI) (test code 94 ML/MIN/1.73 = 40548) CALC BUN/CREAT (test code = 21 RATIO [...] code = 2219) 39 U/L COMPREHENSIVE METABOLIC [id number] 00:00:00 Test Item Value Reference Range Interpretation Comments GLUCOSE (test code = 2217) 349 MG/DL BUN (test code = 2208) 17 MG/DL CREATININE (test code = 2214) 0.80 MG/DL eGFR (2020 CKD-EPI) (test code 94 ML/MIN/1.73 = 57133) CALC BUN/CREAT (test code = 21 RATIO [...] (test code = 2219) 39 U/L LIPID [id number] 00:00:00 Test Item Value Reference Range Interpretation Comments CHOLESTEROL (test code = 2210) 206 MG/DL TRIGLYCERIDES (test code = 2232) 1120 MG/DL HDL CHOLESTEROL (test code = 24 MG/DL 2220) CALC LDL CHOL (test code = 2237) (NOTE) MG/DL RISK RATIO LDL/HDL (test code = (NOTE) RATIO 2238) LIPID [id number] 00:00:00 Test Item Value Reference Range Interpretation Comments CHOLESTEROL (test code = 2210) 206 MG/DL TRIGLYCERIDES (test code = 2232) 1120 MG/DL HDL CHOLESTEROL (test code = 24 MG/DL 2220) CALC LDL CHOL (test code = 2237) (NOTE) MG/DL RISK RATIO LDL/HDL (test code = (NOTE) RATIO 2238) COMPREHENSIVE METABOLIC [id number] 00:00:00 Test Item Value Reference Range Interpretation Comments GLUCOSE (test code = 2217) 349 MG/DL BUN (test code = 2208) 17 MG/DL CREATININE (test code = 2214) 0.80 MG/DL eGFR (2020 CKD-EPI) (test code 94 ML/MIN/1.73 = 97435) CALC BUN/CREAT (test code = 21 RATIO [...] code = 2219) 39 U/L COMPREHENSIVE METABOLIC [id number] 00:00:00 Test Item Value Reference Range Interpretation Comments GLUCOSE (test code = 2217) 349 MG/DL BUN (test code = 2208) 17 MG/DL CREATININE (test code = 2214) 0.80 MG/DL eGFR (2020 CKD-EPI) (test code 94 ML/MIN/1.73 = 81078) CALC BUN/CREAT (test code = 21 RATIO [...] (test code = 2219) 39 U/L LIPID [id number] 00:00:00 Test Item Value Reference Range Interpretation Comments CHOLESTEROL (test code = 2210) 206 MG/DL TRIGLYCERIDES (test code = 2232) 1120 MG/DL HDL CHOLESTEROL (test code = 24 MG/DL 2220) CALC LDL CHOL (test code = 2237) (NOTE) MG/DL RISK RATIO LDL/HDL (test code = (NOTE) RATIO 2238) LIPID [id number] 00:00:00 Test Item Value Reference Range Interpretation Comments CHOLESTEROL (test code = 2210) 206 MG/DL TRIGLYCERIDES (test code = 2232) 1120 MG/DL HDL CHOLESTEROL (test code = 24 MG/DL 2220) CALC LDL CHOL (test code = 2237) (NOTE) MG/DL RISK RATIO LDL/HDL (test code = (NOTE) RATIO 2238) COMPREHENSIVE METABOLIC [id number] 00:00:00 Test Item Value Reference Range Interpretation Comments GLUCOSE (test code = 2217) 349 MG/DL BUN (test code = 2208) 17 MG/DL CREATININE (test code = 2214) 0.80 MG/DL eGFR (2020 CKD-EPI) (test code 94 ML/MIN/1.73 = 61091) CALC BUN/CREAT (test code = 21 RATIO [...] code = 2219) 39 U/L COMPREHENSIVE METABOLIC [id number] 00:00:00 Test Item Value Reference Range Interpretation Comments GLUCOSE (test code = 2217) 349 MG/DL BUN (test code = 2208) 17 MG/DL CREATININE (test code = 2214) 0.80 MG/DL eGFR (2020 CKD-EPI) (test code 94 ML/MIN/1.73 = 19754) CALC BUN/CREAT (test code = 21 RATIO [...] (test code = 2219) 39 U/L LIPID [id number] 00:00:00 Test Item Value Reference Range Interpretation Comments CHOLESTEROL (test code = 2210) 206 MG/DL TRIGLYCERIDES (test code = 2232) 1120 MG/DL HDL CHOLESTEROL (test code = 24 MG/DL 2220) CALC LDL CHOL (test code = 2237) (NOTE) MG/DL RISK RATIO LDL/HDL (test code = (NOTE) RATIO 2238) LIPID [id number] 00:00:00 Test Item Value Reference Range Interpretation Comments CHOLESTEROL (test code = 2210) 206 MG/DL TRIGLYCERIDES (test code = 2232) 1120 MG/DL HDL CHOLESTEROL (test code = 24 MG/DL 2220) CALC LDL CHOL (test code = 2237) (NOTE) MG/DL RISK RATIO LDL/HDL (test code = (NOTE) RATIO 2238) COMPREHENSIVE METABOLIC [id number] 00:00:00 Test Item Value Reference Range Interpretation Comments GLUCOSE (test code = 2217) 349 MG/DL BUN (test code = 2208) 17 MG/DL CREATININE (test code = 2214) 0.80 MG/DL eGFR (2020 CKD-EPI) (test code 94 ML/MIN/1.73 = 22874) CALC BUN/CREAT (test code = 21 RATIO [...] code = 2219) 39 U/L COMPREHENSIVE METABOLIC [id number] 00:00:00 Test Item Value Reference Range Interpretation Comments GLUCOSE (test code = 2217) 349 MG/DL BUN (test code = 2208) 17 MG/DL CREATININE (test code = 2214) 0.80 MG/DL eGFR (2020 CKD-EPI) (test code 94 ML/MIN/1.73 = 95808) CALC BUN/CREAT (test code = 21 RATIO [...] (test code = 2219) 39 U/L LIPID [id number] 00:00:00 Test Item Value Reference Range Interpretation Comments CHOLESTEROL (test code = 2210) 206 MG/DL TRIGLYCERIDES (test code = 2232) 1120 MG/DL HDL CHOLESTEROL (test code = 24 MG/DL 2220) CALC LDL CHOL (test code = 2237) (NOTE) MG/DL RISK RATIO LDL/HDL (test code = (NOTE) RATIO 2238) LIPID [id number] 00:00:00 Test Item Value Reference Range Interpretation Comments CHOLESTEROL (test code = 2210) 206 MG/DL TRIGLYCERIDES (test code = 2232) 1120 MG/DL HDL CHOLESTEROL (test code = 24 MG/DL 2220) CALC LDL CHOL (test code = 2237) (NOTE) MG/DL RISK RATIO LDL/HDL (test code = (NOTE) RATIO 2238) COMPREHENSIVE METABOLIC [id number] 00:00:00 Test Item Value Reference Range Interpretation Comments GLUCOSE (test code = 2217) 349 MG/DL BUN (test code = 2208) 17 MG/DL CREATININE (test code = 2214) 0.80 MG/DL eGFR (2020 CKD-EPI) (test code 94 ML/MIN/1.73 = 31418) CALC BUN/CREAT (test code = 21 RATIO [...] code = 2219) 39 U/L COMPREHENSIVE METABOLIC [id number] 00:00:00 Test Item Value Reference Range Interpretation Comments GLUCOSE (test code = 2217) 349 MG/DL BUN (test code = 2208) 17 MG/DL CREATININE (test code = 2214) 0.80 MG/DL eGFR (2020 CKD-EPI) (test code 94 ML/MIN/1.73 = 88516) CALC BUN/CREAT (test code = 21 RATIO [...] (test code = 2219) 39 U/L LIPID [id number] 00:00:00 Test Item Value Reference Range Interpretation Comments CHOLESTEROL (test code = 2210) 206 MG/DL TRIGLYCERIDES (test code = 2232) 1120 MG/DL HDL CHOLESTEROL (test code = 24 MG/DL 2220) CALC LDL CHOL (test code = 2237) (NOTE) MG/DL RISK RATIO LDL/HDL (test code = (NOTE) RATIO 2238) LIPID [id number] 00:00:00 Test Item Value Reference Range Interpretation Comments CHOLESTEROL (test code = 2210) 206 MG/DL TRIGLYCERIDES (test code = 2232) 1120 MG/DL HDL CHOLESTEROL (test code = 24 MG/DL 2220) CALC LDL CHOL (test code = 2237) (NOTE) MG/DL RISK RATIO LDL/HDL (test code = (NOTE) RATIO 2238) COMPREHENSIVE METABOLIC [id number] 00:00:00 Test Item Value Reference Range Interpretation Comments GLUCOSE (test code = 2217) 349 MG/DL BUN (test code = 2208) 17 MG/DL CREATININE (test code = 2214) 0.80 MG/DL eGFR (2020 CKD-EPI) (test code 94 ML/MIN/1.73 = 72407) CALC BUN/CREAT (test code = 21 RATIO [...] code = 2219) 39 U/L COMPREHENSIVE METABOLIC [id number] 00:00:00 Test Item Value Reference Range Interpretation Comments GLUCOSE (test code = 2217) 349 MG/DL BUN (test code = 2208) 17 MG/DL CREATININE (test code = 2214) 0.80 MG/DL eGFR (2020 CKD-EPI) (test code 94 ML/MIN/1.73 = 04181) CALC BUN/CREAT (test code = 21 RATIO [...] (test code = 2219) 39 U/L LIPID [id number] 00:00:00 Test Item Value Reference Range Interpretation Comments CHOLESTEROL (test code = 2210) 206 MG/DL TRIGLYCERIDES (test code = 2232) 1120 MG/DL HDL CHOLESTEROL (test code = 24 MG/DL 2220) CALC LDL CHOL (test code = 2237) (NOTE) MG/DL RISK RATIO LDL/HDL (test code = (NOTE) RATIO 2238) LIPID [id number] 00:00:00 Test Item Value Reference Range Interpretation Comments CHOLESTEROL (test code = 2210) 206 MG/DL TRIGLYCERIDES (test code = 2232) 1120 MG/DL HDL CHOLESTEROL (test code = 24 MG/DL 2220) CALC LDL CHOL (test code = 2237) (NOTE) MG/DL RISK RATIO LDL/HDL (test code = (NOTE) RATIO 2238) COMPREHENSIVE METABOLIC [id number] 00:00:00 Test Item Value Reference Range Interpretation Comments GLUCOSE (test code = 2217) 349 MG/DL BUN (test code = 2208) 17 MG/DL CREATININE (test code = 2214) 0.80 MG/DL eGFR (2020 CKD-EPI) (test code 94 ML/MIN/1.73 = 61048) CALC BUN/CREAT (test code = 21 RATIO [...] = 0.2 MG/DL 2207) ALKALINE PHOSPHATASE (test 69 U/L code = 2204) AST (test code = 2218) 21 U/L ALT (test code = 2219) 39 U/L COMPREHENSIVE METABOLIC [id number] 00:00:00 Test Item Value Reference Range Interpretation Comments GLUCOSE (test code = 2217) 349 MG/DL BUN (test code = 2208) 17 MG/DL CREATININE (test code = 2214) 0.80 MG/DL eGFR (2020 CKD-EPI) (test code 94 ML/MIN/1.73 = 84511) CALC BUN/CREAT (test code = 21 RATIO [...] (test code = 2219) 39 U/L LIPID [id number] 00:00:00 Test Item Value Reference Range Interpretation Comments CHOLESTEROL (test code = 2210) 206 MG/DL TRIGLYCERIDES (test code = 2232) 1120 MG/DL HDL CHOLESTEROL (test code = 24 MG/DL 0) CALC LDL CHOL (test code = 2237) (NOTE) MG/DL RISK RATIO LDL/HDL (test code = (NOTE) RATIO 2238) COMPREHENSIVE METABOLIC [id number] 00:00:00 Test Item Value Reference Range Interpretation Comments GLUCOSE (test code = 2217) 349 MG/DL BUN (test code = 2208) 17 MG/DL CREATININE (test code = 2214) 0.80 MG/DL eGFR (2020 CKD-EPI) (test code 94 ML/MIN/1.73 = 86155) CALC BUN/CREAT (test code = 21 RATIO [...] (test code = 2219) 39 U/L LIPID [id number] 00:00:00 Test Item Value Reference Range Interpretation Comments CHOLESTEROL (test code = 2210) 206 MG/DL TRIGLYCERIDES (test code = 2232) 1120 MG/DL HDL CHOLESTEROL (test code = 24 MG/DL 2220) CALC LDL CHOL (test code = 2237) (NOTE) MG/DL RISK RATIO LDL/HDL (test code = (NOTE) RATIO 2238) LIPID [id number] 00:00:00 Test Item Value Reference Range Interpretation Comments CHOLESTEROL (test code = 2210) 206 MG/DL TRIGLYCERIDES (test code = 2232) 1120 MG/DL HDL CHOLESTEROL (test code = 24 MG/DL 2220) CALC LDL CHOL (test code = 2237) (NOTE) MG/DL RISK RATIO LDL/HDL (test code = (NOTE) RATIO 2238) COMPREHENSIVE METABOLIC [id number] 00:00:00 Test Item Value Reference Range Interpretation Comments GLUCOSE (test code = 2217) 349 MG/DL BUN (test code = 2208) 17 MG/DL CREATININE (test code = 2214) 0.80 MG/DL eGFR (2020 CKD-EPI) (test code 94 ML/MIN/1.73 = 49610) CALC BUN/CREAT (test code = 21 RATIO [...] code = 2219) 39 U/L COMPREHENSIVE METABOLIC [id number] 00:00:00 Test Item Value Reference Range Interpretation Comments GLUCOSE (test code = 2217) 349 MG/DL BUN (test code = 2208) 17 MG/DL CREATININE (test code = 2214) 0.80 MG/DL eGFR (2020 CKD-EPI) (test code 94 ML/MIN/1.73 = 38780) CALC BUN/CREAT (test code = 21 RATIO [...] (test code = 2219) 39 U/L LIPID [id number] 00:00:00 Test Item Value Reference Range Interpretation Comments CHOLESTEROL (test code = 2210) 206 MG/DL TRIGLYCERIDES (test code = 2232) 1120 MG/DL HDL CHOLESTEROL (test code = 24 MG/DL 2219) CALC LDL CHOL (test code = 2237) (NOTE) MG/DL RISK RATIO LDL/HDL (test code = (NOTE) RATIO 2238) LIPID [id number] 00:00:00 Test Item Value Reference Range Interpretation Comments CHOLESTEROL (test code = 2210) 206 MG/DL TRIGLYCERIDES (test code = 2232) 1120 MG/DL HDL CHOLESTEROL (test code = 24 MG/DL 2220) CALC LDL CHOL (test code = 2237) (NOTE) MG/DL RISK RATIO LDL/HDL (test code = (NOTE) RATIO 2238) COMPREHENSIVE METABOLIC [id number] 00:00:00 Test Item Value Reference Range Interpretation Comments GLUCOSE (test code = 2217) 349 MG/DL BUN (test code = 2208) 17 MG/DL CREATININE (test code = 2214) 0.80 MG/DL eGFR (2020 CKD-EPI) (test code 94 ML/MIN/1.73 = 74682) CALC BUN/CREAT (test code = 21 RATIO [...] code = 2219) 39 U/L COMPREHENSIVE METABOLIC [id number] 00:00:00 Test Item Value Reference Range Interpretation Comments GLUCOSE (test code = 2217) 349 MG/DL BUN (test code = 2208) 17 MG/DL CREATININE (test code = 2214) 0.80 MG/DL eGFR (2020 CKD-EPI) (test code 94 ML/MIN/1.73 = 79223) CALC BUN/CREAT (test code = 21 RATIO [...] (test code = 2219) 39 U/L LIPID [id number] 00:00:00 Test Item Value Reference Range Interpretation Comments CHOLESTEROL (test code = 2210) 206 MG/DL TRIGLYCERIDES (test code = 2232) 1120 MG/DL HDL CHOLESTEROL (test code = 24 MG/DL 2220) CALC LDL CHOL (test code = 2237) (NOTE) MG/DL RISK RATIO LDL/HDL (test code = (NOTE) RATIO 2238) LIPID [id number] 00:00:00 Test Item Value Reference Range Interpretation Comments CHOLESTEROL (test code = 2210) 206 MG/DL TRIGLYCERIDES (test code = 2232) 1120 MG/DL HDL CHOLESTEROL (test code = 24 MG/DL 2220) CALC LDL CHOL (test code = 2237) (NOTE) MG/DL RISK RATIO LDL/HDL (test code = (NOTE) RATIO 2238) COMPREHENSIVE METABOLIC [id number] 00:00:00 Test Item Value Reference Range Interpretation Comments GLUCOSE (test code = 2217) 349 MG/DL BUN (test code = 2208) 17 MG/DL CREATININE (test code = 2214) 0.80 MG/DL eGFR (2020 CKD-EPI) (test code 94 ML/MIN/1.73 = 74773) CALC BUN/CREAT (test code = 21 RATIO [...] code = 2219) 39 U/L COMPREHENSIVE METABOLIC [id number] 00:00:00 Test Item Value Reference Range Interpretation Comments GLUCOSE (test code = 2217) 349 MG/DL BUN (test code = 2208) 17 MG/DL CREATININE (test code = 2214) 0.80 MG/DL eGFR (2020 CKD-EPI) (test code 94 ML/MIN/1.73 = 27855) CALC BUN/CREAT (test code = 21 RATIO [...] (test code = 2219) 39 U/L HEMOGLOBIN [id number] 04:43:57 Test Item Value Reference Range Interpretation Comments HEMOGLOBIN A1c (test 11.5 % 4.2-5.6 H [employer] AN DIABETES code = 97040) ASSOCIATION IDELIN[employer] FOR HGB A1C: PREDIABETES/INC REASED [...] ATE TESTING OR LABORATORY C ONSULTATION. HEMOGLOBIN [id number] 00:00:00 Test Item Value Reference Range Interpretation Comments HEMOGLOBIN A1c (test code = 38741) 11.5 % HEMOGLOBIN [id number] 00:00:00 Test Item Value Reference Range Interpretation Comments HEMOGLOBIN A1c (test code = 55259) 11.5 % HEMOGLOBIN [id number] 00:00:00 Test Item Value Reference Range Interpretation Comments HEMOGLOBIN A1c (test code = 79033) 11.5 % HEMOGLOBIN [id number] 00:00:00 Test Item Value Reference Range Interpretation Comments HEMOGLOBIN A1c (test code = 75287) 11.5 % HEMOGLOBIN [id number] 00:00:00 Test Item Value Reference Range Interpretation Comments HEMOGLOBIN A1c (test code = 17725) 11.5 % HEMOGLOBIN [id number] 00:00:00 Test Item Value Reference Range Interpretation Comments HEMOGLOBIN A1c (test code = 06580) 11.5 % HEMOGLOBIN [id number] 00:00:00 Test Item Value Reference Range Interpretation Comments HEMOGLOBIN A1c (test code = 67339) 11.5 % HEMOGLOBIN [id number] 00:00:00 Test Item Value Reference Range Interpretation Comments HEMOGLOBIN A1c (test code = 53581) 11.5 % HEMOGLOBIN [id number] 00:00:00 Test Item Value Reference Range Interpretation Comments HEMOGLOBIN A1c (test code = 46314) 11.5 % HEMOGLOBIN [id number] 00:00:00 Test Item Value Reference Range Interpretation Comments HEMOGLOBIN A1c (test code = 21681) 11.5 % HEMOGLOBIN [id number] 00:00:00 Test Item Value Reference Range Interpretation Comments HEMOGLOBIN A1c (test code = 32511) 11.5 % HEMOGLOBIN [id number] 00:00:00 Test Item Value Reference Range Interpretation Comments HEMOGLOBIN A1c (test code = 66475) 11.5 % HEMOGLOBIN [id number] 00:00:00 Test Item Value Reference Range Interpretation Comments HEMOGLOBIN A1c (test code = 87470) 11.5 % HEMOGLOBIN [id number] 00:00:00 Test Item Value Reference Range Interpretation Comments HEMOGLOBIN A1c (test code = 81391) 11.5 % HEMOGLOBIN [id number] 00:00:00 Test Item Value Reference Range Interpretation Comments HEMOGLOBIN A1c (test code = 53583) 11.5 % HEMOGLOBIN [id number] 00:00:00 Test Item Value Reference Range Interpretation Comments HEMOGLOBIN A1c (test code = 63522) 11.5 % HEMOGLOBIN [id number] 00:00:00 Test Item Value Reference Range Interpretation Comments HEMOGLOBIN A1c (test code = 92783) 11.5 % HEMOGLOBIN [id number] 00:00:00 Test Item Value Reference Range Interpretation Comments HEMOGLOBIN A1c (test code = 91254) 11.5 % HEMOGLOBIN [id number] 00:00:00 Test Item Value Reference Range Interpretation Comments HEMOGLOBIN A1c (test code = 36597) 11.5 % HEMOGLOBIN [id number] 00:00:00 Test Item Value Reference Range Interpretation Comments HEMOGLOBIN A1c (test code = 01708) 11.5 % HEMOGLOBIN [id number] 00:00:00 Test Item Value Reference Range Interpretation Comments HEMOGLOBIN A1c (test code = 17836) 11.5 % HEMOGLOBIN [id number] 00:00:00 Test Item Value Reference Range Interpretation Comments HEMOGLOBIN A1c (test code = 73610) 11.5 % HEMOGLOBIN [id number] 00:00:00 Test Item Value Reference Range Interpretation Comments HEMOGLOBIN A1c (test code = 98170) 11.5 % HEMOGLOBIN [id number] 00:00:00 Test Item Value Reference Range Interpretation Comments HEMOGLOBIN A1c (test code = 13119) 11.5 % HEMOGLOBIN [id number] 00:00:00 Test Item Value Reference Range Interpretation Comments HEMOGLOBIN A1c (test code = 67581) 11.5 % HEMOGLOBIN [id number] 00:00:00 Test Item Value Reference Range Interpretation Comments HEMOGLOBIN A1c (test code = 91888) 11.5 % HEMOGLOBIN [id number] 00:00:00 Test Item Value Reference Range Interpretation Comments HEMOGLOBIN A1c (test code = 99192) 11.5 % HEMOGLOBIN [id number] 00:00:00 Test Item Value Reference Range Interpretation Comments HEMOGLOBIN A1c (test code = 76917) 11.5 % HEMOGLOBIN [id number] 00:00:00 Test Item Value Reference Range Interpretation Comments HEMOGLOBIN A1c (test code = 01552) 11.5 % HEMOGLOBIN [id number] 00:00:00 Test Item Value Reference Range Interpretation Comments HEMOGLOBIN A1c (test code = 24972) 11.5 % HEMOGLOBIN [id number] 00:00:00 Test Item Value Reference Range Interpretation Comments HEMOGLOBIN A1c (test code = 45365) 11.5 % HEMOGLOBIN [id number] 00:00:00 Test Item Value Reference Range Interpretation Comments HEMOGLOBIN A1c (test code = 71593) 11.5 % CULTURE, [id number] 11:34:56SPECIMEN NUMBER: [id number] CULTURE, URINE SPECIMEN NUMBER: [id number] SPECIMEN COMMENT: URINE SOURCE:URINE REPORT STATUS: FINAL FINAL REPORT: 10/25/2021 10-50,000 CFU/ML UROGENITAL NORMA PRESENT NO COMM ON PATHOGENSCULTURE, [id number] 00:00:00 Test Item Value Reference Range Interpretation Comments CULTURE, URINE (test SPECIMEN NUMBER: code = 51346) [id number] CULTURE, [id number] 00:00:00 Test Item Value Reference Range Interpretation Comments CULTURE, URINE (test SPECIMEN NUMBER: code = 59601) [id number] CULTURE, [id number] 00:00:00 Test Item Value Reference Range Interpretation Comments CULTURE, URINE (test SPECIMEN NUMBER: code = 51316) [id number] CULTURE, [id number] 00:00:00 Test Item Value Reference Range Interpretation Comments CULTURE, URINE (test SPECIMEN NUMBER: code = 83164) [id number] CULTURE, [id number] 00:00:00 Test Item Value Reference Range Interpretation Comments CULTURE, URINE (test SPECIMEN NUMBER: code = 88216) [id number] CULTURE, [id number] 00:00:00 Test Item Value Reference Range Interpretation Comments CULTURE, URINE (test SPECIMEN NUMBER: code = 30584) [id number] CULTURE, [id number] 00:00:00 Test Item Value Reference Range Interpretation Comments CULTURE, URINE (test SPECIMEN NUMBER: code = 32162) [id number] CULTURE, [id number] 00:00:00 Test Item Value Reference Range Interpretation Comments CULTURE, URINE (test SPECIMEN NUMBER: code = 31757) [id number] CULTURE, [id number] 00:00:00 Test Item Value Reference Range Interpretation Comments CULTURE, URINE (test SPECIMEN NUMBER: code = 63422) [id number] CULTURE, [id number] 00:00:00 Test Item Value Reference Range Interpretation Comments CULTURE, URINE (test SPECIMEN NUMBER: code = 51548) [id number] CULTURE, [id number] 00:00:00 Test Item Value Reference Range Interpretation Comments CULTURE, URINE (test SPECIMEN NUMBER: code = 61048) [id number] CULTURE, [id number] 00:00:00 Test Item Value Reference Range Interpretation Comments CULTURE, URINE (test SPECIMEN NUMBER: code = 09186) [id number] CULTURE, [id number] 00:00:00 Test Item Value Reference Range Interpretation Comments CULTURE, URINE (test SPECIMEN NUMBER: code = 31206) [id number] CULTURE, [id number] 00:00:00 Test Item Value Reference Range Interpretation Comments CULTURE, URINE (test SPECIMEN NUMBER: code = 51583) [id number] CULTURE, [id number] 00:00:00 Test Item Value Reference Range Interpretation Comments CULTURE, URINE (test SPECIMEN NUMBER: code = 33732) [id number] CULTURE, [id number] 00:00:00 Test Item Value Reference Range Interpretation Comments CULTURE, URINE (test SPECIMEN NUMBER: code = 39149) [id number] CULTURE, [id number] 00:00:00 Test Item Value Reference Range Interpretation Comments CULTURE, URINE (test SPECIMEN NUMBER: code = 20123) [id number] CULTURE, [id number] 00:00:00 Test Item Value Reference Range Interpretation Comments CULTURE, URINE (test SPECIMEN NUMBER: code = 52410) [id number] CULTURE, [id number] 00:00:00 Test Item Value Reference Range Interpretation Comments CULTURE, URINE (test SPECIMEN NUMBER: code = 66434) [id number] CULTURE, [id number] 00:00:00 Test Item Value Reference Range Interpretation Comments CULTURE, URINE (test SPECIMEN NUMBER: code = 29146) [id number] CULTURE, [id number] 00:00:00 Test Item Value Reference Range Interpretation Comments CULTURE, URINE (test SPECIMEN NUMBER: code = 96989) [id number] VAGINAL PATHOGENS DNA [id number] 11:55:20 Test Item Value Reference Range Interpretation Comments ANDIE SPECIES (test NEGATIVE NEGATIVE code = 07277) G. VAGINALIS (test NEGATIVE NEGATIVE code = 08861) T. VAGINALIS (test NEGATIVE NEGATIVE UNLESS O THERWISE code = 05905) INDICATED, ALL TESTING PERFORMED [facility] PATHOLOGY [facility], [facility]. [address] [place] [address] 4 LABORATORY DIRE CTOR: NOAH TODD M.D. CLIA NUMBER [id number] [facility] [place]. [id number] VAGINAL PATHOGENS DNA [id number] 00:00:00 Test Item Value Reference Range Interpretation Comments ANDIE SPECIES (test code = 79485) NEGATIVE G. VAGINALIS (test code = 41753) NEGATIVE T. VAGINALIS (test code = 65122) NEGATIVE VAGINAL PATHOGENS DNA [id number] 00:00:00 Test Item Value Reference Range Interpretation Comments ANDIE SPECIES (test code = 04599) NEGATIVE G. VAGINALIS (test code = 13820) NEGATIVE T. VAGINALIS (test code = 12018) NEGATIVE VAGINAL PATHOGENS DNA [id number] 00:00:00 Test Item Value Reference Range Interpretation Comments ANDIE SPECIES (test code = 25707) NEGATIVE G. VAGINALIS (test code = 39324) NEGATIVE T. VAGINALIS (test code = 12569) NEGATIVE VAGINAL PATHOGENS DNA [id number] 00:00:00 Test Item Value Reference Range Interpretation Comments ANDIE SPECIES (test code = 32705) NEGATIVE G. VAGINALIS (test code = 45217) NEGATIVE T. VAGINALIS (test code = 35086) NEGATIVE VAGINAL PATHOGENS DNA [id number] 00:00:00 Test Item Value Reference Range Interpretation Comments ANDIE SPECIES (test code = 02700) NEGATIVE G. VAGINALIS (test code = 09576) NEGATIVE T. VAGINALIS (test code = 59710) NEGATIVE VAGINAL PATHOGENS DNA [id number] 00:00:00 Test Item Value Reference Range Interpretation Comments ANDIE SPECIES (test code = 26350) NEGATIVE G. VAGINALIS (test code = 18195) NEGATIVE T. VAGINALIS (test code = 08660) NEGATIVE VAGINAL PATHOGENS DNA [id number] 00:00:00 Test Item Value Reference Range Interpretation Comments ANDIE SPECIES (test code = 99491) NEGATIVE G. VAGINALIS (test code = 02748) NEGATIVE T. VAGINALIS (test code = 10747) NEGATIVE VAGINAL PATHOGENS DNA [id number] 00:00:00 Test Item Value Reference Range Interpretation Comments ANDIE SPECIES (test code = 65934) NEGATIVE G. VAGINALIS (test code = 01214) NEGATIVE T. VAGINALIS (test code = 99095) NEGATIVE VAGINAL PATHOGENS DNA [id number] 00:00:00 Test Item Value Reference Range Interpretation Comments ANDIE SPECIES (test code = 80500) NEGATIVE G. VAGINALIS (test code = 53784) NEGATIVE T. VAGINALIS (test code = 57278) NEGATIVE VAGINAL PATHOGENS DNA [id number] 00:00:00 Test Item Value Reference Range Interpretation Comments ANDIE SPECIES (test code = 39532) NEGATIVE G. VAGINALIS (test code = 49522) NEGATIVE T. VAGINALIS (test code = 21351) NEGATIVE VAGINAL PATHOGENS DNA [id number] 00:00:00 Test Item Value Reference Range Interpretation Comments ANDIE SPECIES (test code = 46893) NEGATIVE G. VAGINALIS (test code = 52928) NEGATIVE T. VAGINALIS (test code = 91994) NEGATIVE VAGINAL PATHOGENS DNA [id number] 00:00:00 Test Item Value Reference Range Interpretation Comments ANDIE SPECIES (test code = 01412) NEGATIVE G. VAGINALIS (test code = 73127) NEGATIVE T. VAGINALIS (test code = 12246) NEGATIVE VAGINAL PATHOGENS DNA [id number] 00:00:00 Test Item Value Reference Range Interpretation Comments ANDIE SPECIES (test code = 18798) NEGATIVE G. VAGINALIS (test code = 06923) NEGATIVE T. VAGINALIS (test code = 70754) NEGATIVE VAGINAL PATHOGENS DNA [id number] 00:00:00 Test Item Value Reference Range Interpretation Comments ANDIE SPECIES (test code = 57523) NEGATIVE G. VAGINALIS (test code = 85432) NEGATIVE T. VAGINALIS (test code = 99923) NEGATIVE VAGINAL PATHOGENS DNA [id number] 00:00:00 Test Item Value Reference Range Interpretation Comments ANDIE SPECIES (test code = 16399) NEGATIVE G. VAGINALIS (test code = 06706) NEGATIVE T. VAGINALIS (test code = 50744) NEGATIVE VAGINAL PATHOGENS DNA [id number] 00:00:00 Test Item Value Reference Range Interpretation Comments ANDIE SPECIES (test code = 97918) NEGATIVE G. VAGINALIS (test code = 48765) NEGATIVE T. VAGINALIS (test code = 12194) NEGATIVE VAGINAL PATHOGENS DNA [id number] 00:00:00 Test Item Value Reference Range Interpretation Comments ANDIE SPECIES (test code = 35074) NEGATIVE G. VAGINALIS (test code = 00080) NEGATIVE T. VAGINALIS (test code = 42799) NEGATIVE VAGINAL PATHOGENS DNA [id number] 00:00:00 Test Item Value Reference Range Interpretation Comments ANDIE SPECIES (test code = 86694) NEGATIVE G. VAGINALIS (test code = 62428) NEGATIVE T. VAGINALIS (test code = 18111) NEGATIVE VAGINAL PATHOGENS DNA [id number] 00:00:00 Test Item Value Reference Range Interpretation Comments ANDIE SPECIES (test code = 25460) NEGATIVE G. VAGINALIS (test code = 93498) NEGATIVE T. VAGINALIS (test code = 07775) NEGATIVE VAGINAL PATHOGENS DNA [id number] 00:00:00 Test Item Value Reference Range Interpretation Comments ANDIE SPECIES (test code = 18044) NEGATIVE G. VAGINALIS (test code = 40233) NEGATIVE T. VAGINALIS (test code = 14617) NEGATIVE VAGINAL PATHOGENS DNA [id number] 00:00:00 Test Item Value Reference Range Interpretation Comments ANDIE SPECIES (test code = 16607) NEGATIVE G. VAGINALIS (test code = 02197) NEGATIVE T. VAGINALIS (test code = 00670) NEGATIVE POCT GLUCOSE (AUTOMATED)2021-10-17 01:51:54 Test Item Value Reference Range Interpretation Comments POCT GLU (test code = 5297346887) 365 mg/dL 70-110 H Lab Interpretation (test code = Abnormal 46320-1) [facility] GLUCOSE (AUTOMATED)2021-10-17 00:46:51 Test Item Value Reference Range Interpretation Comments POCT GLU (test code = 4928194097) 435 mg/dL 70-110 H Lab Interpretation (test code = Abnormal 47298-7) [facility] GLUCOSE(AGE >30DAYS)2021-10-17 00:41:00 Test Item Value Reference Range Interpretation Comments POCT Glu (age>30days) (test code = 435 mg/dL 70-110 A 3342) Lab Interpretation (test code = Abnormal 64168-6[id number]:40[facility] Test Item Value Reference Interpretation Comments Range TROPONIN I (test 0.001 ng/mL See_Comment [Automated code = 2144649531) message] The system which generated this result [...] biotin. Lab Interpretation Normal (test code = 58883-8) [id number] 23:37:40 Test Item Value Reference Range Interpretation Comments NT-proBNP (test code 20 pg/mL See_Comment [Autom ated = 7436768245) message] The system which generated this result transmitted reference range : <=125. The reference range was not used to interpret this result as normal/abnormal . CALVIN (test code = CALVIN) Biotin has been reported to cause a negative bias, interpret results relative to patient's use of biotin. Lab Interpretation Normal (test code = 19756-1) [facility] (10065[facility]2021-10-16 23:29:18 Test Item Value Reference Range Interpretation Comments NA (test code = 134 mmol/L 135-145 L 7534420613) K (test code = 4.4 mmol/L 3.5-5.0 6793526233) CL (test code = 97 mmol/L 98-108 L 7943087262) CO2 TOTAL (test code = 23 mmol/L 23-31 6735399182) AGAP (test code = 2-16 9839021086) BUN (test code = 21 mg/dL 7-23 5015936859) GLUCOSE (test code = 431 mg/dL 70-110 H 5167218227) CREATININE (test code = 0.88 mg/dL 0.50-1.04 5209890765) TOTAL BILI (test code = 0.5 mg/dL 0.1-1.8 2665530569) CALCIUM (test code = 9.2 mg/dL 8.6-10.6 4344971909) T PROTEIN (test code = 7.4 g/dL 6.3-8.2 1945746011) ALBUMIN (test code = 4.7 g/dL 3.5-5.0 8707898017) ALK PHOS (test code = 52 U/L 34-122 7458837237) ALTv (test code = 30 U/L 5-35 1742-6) AST(SGOT) (test code = 25 U/L 13-40 5895601835) eGFR (test code = mL/min/1.73m2 0947468452) CALVIN (test code = CALVIN) Association of [...] tests). Lab Interpretation Abnormal (test code = 23304-2) [facility] WITH [id number] 23:20:10 Test Item Value Reference Range Interpretation [...] RDW-SD (test code = 40.5 fL 39.0-49.9 60179-0) RDW-CV (test code = 13.5 % 12.0-15.5 788-0) PLT (test code = See_Comment [Automated 777-3) message] The sy stem which generated this result transmitted reference range : 166 - 358 10*3/ ?L. The reference r doretha was not used to interpret this result as normal/abnormal . MPV (test code = 9.6 fL 9.5-12.9 59460-7) NRBC/100 WBC (test See_Comment [Automat ed code = 9953010216) message] The system which generated this result transmitted reference range : 0.0 - 10.0 /100 WBCs. The refer ence range was not u sed to interpret th is result as normal/abnormal . NRBC x10^3 (test code <0.01 See_Comment [Auto mated = 0324996896) message] The s ystem which generated this result transmitted reference range : 10*3/?L. The reference range was not used to interpret this result as normal/abnormal . GRAN MAT (NEUT) % 43.2 % (test code = 770-8) IMM GRAN % (test code 0.70 % = 8584745708) LYMPH % (test code = 42.8 % 736-9) MONO % (test code = 9.2 % 5905-5) EOS % (test code = 3.0 % 713-8) BASO % (test code = 1.1 % 706-2) GRAN MAT x10^3(ANC) 3.15 10*3/uL 1.88-7.09 (test code = 5410174794) IMM GRAN x10^3 (test 0.05 10*3/uL 0.00-0.06 code = 9870283899) LYMPH x10^3 (test code 3.12 10*3/uL 1.32-3.29 = 731-0) MONO x10^3 (test code 0.67 10*3/uL 0.33-0.92 = 742-7) EOS x10^3 (test code = 0.22 10*3/uL 0.03-0.39 711-2) BASO x10^3 (test code 0.08 10*3/uL 0.01-0.07 H = 704-7) Lab Interpretation Abnormal (test code = 37116-2) [facility] [id number] 23:09:32 Test Item Value Reference Range Interpretation Comments LACTIC ACID (test code = 1.94 mmol/L 0.50-2.20 6913651141) Lab Interpretation (test code = Normal 40687-5) [facility] [id number] 22:34:00 Test Item Value Reference Range Interpretation Comments POCT PREG (test code = 1605) Negative On board controls acceptable with Present C Line (test code = 3574) POCT PREG LOT # (test code = 3575) [id number] POCT PREG TEST DATE (test 2023-04-09 code = 3576) Lab Interpretation (test code = Normal 43712-3) [facility] [id number] 08:52:36SPECIMEN NUMBER: [id number] CULTURE, URINE SPECIMEN NUMBER: [id number] SPECIMEN COMMENT: URINE SOURCE:URINE REPORT STATUS: FINAL FINAL REPORT: 10/12/2021 >100,000 CFU/ML UROGENITAL NORMA PRESENT NO COMMON PATHOGENS UNLESS OTHERWISE INDICATED, ALL TESTING PERFORMED [facility] [address] [place] [address] BUSINESS DEPARTMENT CHAIR: NOAH DICKENS M.D. CLIA NUMBER [id number] [facility] [place]. [id number], [id number] 00:00:00 Test Item Value Reference Range Interpretation Comments CULTURE, URINE (test SPECIMEN NUMBER: code = 21530) [id number] CULTURE, [id number] 00:00:00 Test Item Value Reference Range Interpretation Comments CULTURE, URINE (test SPECIMEN NUMBER: code = 27692) [id number] CULTURE, [id number] 00:00:00 Test Item Value Reference Range Interpretation Comments CULTURE, URINE (test SPECIMEN NUMBER: code = 20512) [id number] CULTURE, [id number] 00:00:00 Test Item Value Reference Range Interpretation Comments CULTURE, URINE (test SPECIMEN NUMBER: code = 35077) [id number] CULTURE, [id number] 00:00:00 Test Item Value Reference Range Interpretation Comments CULTURE, URINE (test SPECIMEN NUMBER: code = 30758) [id number] CULTURE, [id number] 00:00:00 Test Item Value Reference Range Interpretation Comments CULTURE, URINE (test SPECIMEN NUMBER: code = 85481) [id number] CULTURE, [id number] 00:00:00 Test Item Value Reference Range Interpretation Comments CULTURE, URINE (test SPECIMEN NUMBER: code = 51182) [id number] CULTURE, [id number] 00:00:00 Test Item Value Reference Range Interpretation Comments CULTURE, URINE (test SPECIMEN NUMBER: code = 16609) [id number] CULTURE, [id number] 00:00:00 Test Item Value Reference Range Interpretation Comments CULTURE, URINE (test SPECIMEN NUMBER: code = 84460) [id number] CULTURE, [id number] 00:00:00 Test Item Value Reference Range Interpretation Comments CULTURE, URINE (test SPECIMEN NUMBER: code = 73738) [id number] CULTURE, [id number] 00:00:00 Test Item Value Reference Range Interpretation Comments CULTURE, URINE (test SPECIMEN NUMBER: code = 93977) [id number] CULTURE, [id number] 00:00:00 Test Item Value Reference Range Interpretation Comments CULTURE, URINE (test SPECIMEN NUMBER: code = 40986) [id number] CULTURE, [id number] 00:00:00 Test Item Value Reference Range Interpretation Comments CULTURE, URINE (test SPECIMEN NUMBER: code = 24614) [id number] CULTURE, [id number] 00:00:00 Test Item Value Reference Range Interpretation Comments CULTURE, URINE (test SPECIMEN NUMBER: code = 23677) [id number] CULTURE, [id number] 00:00:00 Test Item Value Reference Range Interpretation Comments CULTURE, URINE (test SPECIMEN NUMBER: code = 39871) [id number] CULTURE, [id number] 00:00:00 Test Item Value Reference Range Interpretation Comments CULTURE, URINE (test SPECIMEN NUMBER: code = 58374) [id number] CULTURE, [id number] 00:00:00 Test Item Value Reference Range Interpretation Comments CULTURE, URINE (test SPECIMEN NUMBER: code = 96971) [id number] CULTURE, [id number] 00:00:00 Test Item Value Reference Range Interpretation Comments CULTURE, URINE (test SPECIMEN NUMBER: code = 16252) [id number] CULTURE, [id number] 00:00:00 Test Item Value Reference Range Interpretation Comments CULTURE, URINE (test SPECIMEN NUMBER: code = 24666) [id number] CULTURE, [id number] 00:00:00 Test Item Value Reference Range Interpretation Comments CULTURE, URINE (test SPECIMEN NUMBER: code = 65868) [id number] CULTURE, [id number] 00:00:00 Test Item Value Reference Range Interpretation Comments CULTURE, URINE (test SPECIMEN NUMBER: code = 08747) [id number] URINE CULTURE, NO [id number] 09:46:36SPECIMEN NUMBER: [id number] URINE CULTURE, NO SENS SPECIMEN NUMBER: [id number] SPECIMEN COMMENT: URINE SOURCE: URINE REPORT STATUS: FINAL FINAL REPORT: 10/08/2021 50-100,000 CFU/ML UROGENITAL NORMA PRESENT NO COMMON PATHOGENSURINE CULTURE, NO [id number] 00:00:00 Test Item Value Reference Range Interpretation Comments URINE CULTURE, NO SPECIMEN NUMBER: SENS (test code = 755369255 89162) URINE CULTURE, NO [id number] 00:00:00 Test Item Value Reference Range Interpretation Comments URINE CULTURE, NO SPECIMEN NUMBER: SENS (test code = 333907684 50111) URINE CULTURE, NO [id number] 00:00:00 Test Item Value Reference Range Interpretation Comments URINE CULTURE, NO SPECIMEN NUMBER: SENS (test code = 220638661 73891) URINE CULTURE, NO [id number] 00:00:00 Test Item Value Reference Range Interpretation Comments URINE CULTURE, NO SPECIMEN NUMBER: SENS (test code = 013564878 01065) URINE CULTURE, NO [id number] 00:00:00 Test Item Value Reference Range Interpretation Comments URINE CULTURE, NO SPECIMEN NUMBER: SENS (test code = 803227823 18479) URINE CULTURE, NO [id number] 00:00:00 Test Item Value Reference Range Interpretation Comments URINE CULTURE, NO SPECIMEN NUMBER: SENS (test code = 606892373 56039) URINE CULTURE, NO [id number] 00:00:00 Test Item Value Reference Range Interpretation Comments URINE CULTURE, NO SPECIMEN NUMBER: SENS (test code = 955553965 58541) URINE CULTURE, NO [id number] 00:00:00 Test Item Value Reference Range Interpretation Comments URINE CULTURE, NO SPECIMEN NUMBER: SENS (test code = 391936437 13974) URINE CULTURE, NO [id number] 00:00:00 Test Item Value Reference Range Interpretation Comments URINE CULTURE, NO SPECIMEN NUMBER: SENS (test code = 469311154 15530) URINE CULTURE, NO [id number] 00:00:00 Test Item Value Reference Range Interpretation Comments URINE CULTURE, NO SPECIMEN NUMBER: SENS (test code = 926047323 04889) URINE CULTURE, NO [id number] 00:00:00 Test Item Value Reference Range Interpretation Comments URINE CULTURE, NO SPECIMEN NUMBER: SENS (test code = 315079397 47499) URINE CULTURE, NO [id number] 00:00:00 Test Item Value Reference Range Interpretation Comments URINE CULTURE, NO SPECIMEN NUMBER: SENS (test code = 072130559 33382) URINE CULTURE, NO [id number] 00:00:00 Test Item Value Reference Range Interpretation Comments URINE CULTURE, NO SPECIMEN NUMBER: SENS (test code = 646607548 39739) URINE CULTURE, NO [id number] 00:00:00 Test Item Value Reference Range Interpretation Comments URINE CULTURE, NO SPECIMEN NUMBER: SENS (test code = 517766498 96511) URINE CULTURE, NO [id number] 00:00:00 Test Item Value Reference Range Interpretation Comments URINE CULTURE, NO SPECIMEN NUMBER: SENS (test code = 237804725 48550) URINE CULTURE, NO [id number] 00:00:00 Test Item Value Reference Range Interpretation Comments URINE CULTURE, NO SPECIMEN NUMBER: SENS (test code = 162694900 65783) URINE CULTURE, NO [id number] 00:00:00 Test Item Value Reference Range Interpretation Comments URINE CULTURE, NO SPECIMEN NUMBER: SENS (test code = 991298415 58066) URINE CULTURE, NO [id number] 00:00:00 Test Item Value Reference Range Interpretation Comments URINE CULTURE, NO SPECIMEN NUMBER: SENS (test code = 984699086 97146) URINE CULTURE, NO [id number] 00:00:00 Test Item Value Reference Range Interpretation Comments URINE CULTURE, NO SPECIMEN NUMBER: SENS (test code = 079084370 78635) URINE CULTURE, NO [id number] 00:00:00 Test Item Value Reference Range Interpretation Comments URINE CULTURE, NO SPECIMEN NUMBER: SENS (test code = 665530610 63986) URINE CULTURE, NO [id number] 00:00:00 Test Item Value Reference Range Interpretation Comments URINE CULTURE, NO SPECIMEN NUMBER: SENS (test code = 998820468 66136) CBC W/AUTO DIFF WITH [id number] 07:54:02 Test Item Value Reference Range Interpretation [...] RBCS 0.00 K/UL 0.00-0.11 (test code = 09688) COMPREHENSIVE METABOLIC [id number] 05:34:02 Test Item Value Reference Range Interpretation Comments GLUCOSE (test code = 108 MG/DL 70-99 H 2216) BUN (test code = 17 MG/DL 12-28) CREATININE (test 0.84 MG/DL 0.60-1.30 code = 2214) eGFR (2020 CKD-EPI) 88 >60 (test code = 64962) ML/MIN/1.73 CALC BUN/CREAT (test 20 RATIO - code = 2235) SODIUM (test code = 141 MEQ/L 256-594 6936) POTASSIUM (test code 4.0 MEQ/L 3.5-5.4 = [...] TESTING PERFORM ED [facility], [facility]. [address] [place] [place] [id number] [place] [address] DIRECTOR: NOAH DICKENS M.D. CLIA NUMBER [id number] CAP ACCREDITATION N O. [id number] CBC W/AUTO [id number] 00:00:00 Test Item Value Reference Range Interpretation [...] NUCLEATED RBCS (test code = 0.00 K/UL 91274) CBC W/AUTO [id number] 00:00:00 Test Item Value Reference Range Interpretation [...] NUCLEATED RBCS (test code = 0.00 K/UL 34999) CBC W/AUTO [id number] 00:00:00 Test Item Value Reference Range Interpretation [...] NUCLEATED RBCS (test code = 0.00 K/UL 98976) COMPREHENSIVE METABOLIC [id number] 00:00:00 Test Item Value Reference Range Interpretation Comments GLUCOSE (test code = 2217) 108 MG/DL BUN (test code = 2208) 17 MG/DL CREATININE (test code = 2214) 0.84 MG/DL eGFR (2020 CKD-EPI) (test code 88 ML/MIN/1.73 = 74783) CALC BUN/CREAT (test code = 20 RATIO [...] code = 2219) 28 U/L COMPREHENSIVE METABOLIC [id number] 00:00:00 Test Item Value Reference Range Interpretation Comments GLUCOSE (test code = 2217) 108 MG/DL BUN (test code = 2208) 17 MG/DL CREATININE (test code = 2214) 0.84 MG/DL eGFR (2020 CKD-EPI) (test code 88 ML/MIN/1.73 = 46762) CALC BUN/CREAT (test code = 20 RATIO [...] code = 2219) 28 U/L CBC W/AUTO [id number] 00:00:00 Test Item Value Reference Range Interpretation [...] NUCLEATED RBCS (test code = 0.00 K/UL 33897) CBC W/AUTO [id number] 00:00:00 Test Item Value Reference Range Interpretation [...] NUCLEATED RBCS (test code = 0.00 K/UL 61595) CBC W/AUTO [id number] 00:00:00 Test Item Value Reference Range Interpretation [...] NUCLEATED RBCS (test code = 0.00 K/UL 66664) COMPREHENSIVE METABOLIC [id number] 00:00:00 Test Item Value Reference Range Interpretation Comments GLUCOSE (test code = 2217) 108 MG/DL BUN (test code = 2208) 17 MG/DL CREATININE (test code = 2214) 0.84 MG/DL eGFR (2020 CKD-EPI) (test code 88 ML/MIN/1.73 = 18901) CALC BUN/CREAT (test code = 20 RATIO [...] code = 2219) 28 U/L COMPREHENSIVE METABOLIC [id number] 00:00:00 Test Item Value Reference Range Interpretation Comments GLUCOSE (test code = 2217) 108 MG/DL BUN (test code = 2208) 17 MG/DL CREATININE (test code = 2214) 0.84 MG/DL eGFR (2020 CKD-EPI) (test code 88 ML/MIN/1.73 = 08882) CALC BUN/CREAT (test code = 20 RATIO [...] code = 2219) 28 U/L CBC W/AUTO [id number] 00:00:00 Test Item Value Reference Range Interpretation [...] NUCLEATED RBCS (test code = 0.00 K/UL 37036) CBC W/AUTO [id number] 00:00:00 Test Item Value Reference Range Interpretation [...] NUCLEATED RBCS (test code = 0.00 K/UL 72995) CBC W/AUTO [id number] 00:00:00 Test Item Value Reference Range Interpretation [...] NUCLEATED RBCS (test code = 0.00 K/UL 50352) COMPREHENSIVE METABOLIC [id number] 00:00:00 Test Item Value Reference Range Interpretation Comments GLUCOSE (test code = 2217) 108 MG/DL BUN (test code = 2208) 17 MG/DL CREATININE (test code = 2214) 0.84 MG/DL eGFR (2020 CKD-EPI) (test code 88 ML/MIN/1.73 = 59284) CALC BUN/CREAT (test code = 20 RATIO [...] code = 2219) 28 U/L COMPREHENSIVE METABOLIC [id number] 00:00:00 Test Item Value Reference Range Interpretation Comments GLUCOSE (test code = 2217) 108 MG/DL BUN (test code = 2208) 17 MG/DL CREATININE (test code = 2214) 0.84 MG/DL eGFR (2020 CKD-EPI) (test code 88 ML/MIN/1.73 = 80377) CALC BUN/CREAT (test code = 20 RATIO [...] code = 2219) 28 U/L CBC W/AUTO [id number] 00:00:00 Test Item Value Reference Range Interpretation [...] NUCLEATED RBCS (test code = 0.00 K/UL 00292) CBC W/AUTO [id number] 00:00:00 Test Item Value Reference Range Interpretation [...] NUCLEATED RBCS (test code = 0.00 K/UL 53374) CBC W/AUTO [id number] 00:00:00 Test Item Value Reference Range Interpretation [...] NUCLEATED RBCS (test code = 0.00 K/UL 69750) COMPREHENSIVE METABOLIC [id number] 00:00:00 Test Item Value Reference Range Interpretation Comments GLUCOSE (test code = 2217) 108 MG/DL BUN (test code = 2208) 17 MG/DL CREATININE (test code = 2214) 0.84 MG/DL eGFR (2020 CKD-EPI) (test code 88 ML/MIN/1.73 = 58029) CALC BUN/CREAT (test code = 20 RATIO [...] code = 2219) 28 U/L COMPREHENSIVE METABOLIC [id number] 00:00:00 Test Item Value Reference Range Interpretation Comments GLUCOSE (test code = 2217) 108 MG/DL BUN (test code = 2208) 17 MG/DL CREATININE (test code = 2214) 0.84 MG/DL eGFR (2020 CKD-EPI) (test code 88 ML/MIN/1.73 = 15975) CALC BUN/CREAT (test code = 20 RATIO [...] code = 2219) 28 U/L CBC W/AUTO [id number] 00:00:00 Test Item Value Reference Range Interpretation [...] NUCLEATED RBCS (test code = 0.00 K/UL 05069) CBC W/AUTO [id number] 00:00:00 Test Item Value Reference Range Interpretation [...] NUCLEATED RBCS (test code = 0.00 K/UL 31441) CBC W/AUTO [id number] 00:00:00 Test Item Value Reference Range Interpretation [...] NUCLEATED RBCS (test code = 0.00 K/UL 10654) COMPREHENSIVE METABOLIC [id number] 00:00:00 Test Item Value Reference Range Interpretation Comments GLUCOSE (test code = 2217) 108 MG/DL BUN (test code = 2208) 17 MG/DL CREATININE (test code = 2214) 0.84 MG/DL eGFR (2020 CKD-EPI) (test code 88 ML/MIN/1.73 = 45246) CALC BUN/CREAT (test code = 20 RATIO [...] code = 2219) 28 U/L COMPREHENSIVE METABOLIC [id number] 00:00:00 Test Item Value Reference Range Interpretation Comments GLUCOSE (test code = 2217) 108 MG/DL BUN (test code = 2208) 17 MG/DL CREATININE (test code = 2214) 0.84 MG/DL eGFR (2020 CKD-EPI) (test code 88 ML/MIN/1.73 = 10509) CALC BUN/CREAT (test code = 20 RATIO [...] RATIO 4) BILIRUBIN, TOTAL (test code = <0.2 MG/DL 2206) ALKALINE PHOSPHATASE (test 51 U/L code = 2204) AST (test code = 2218) 22 U/L ALT (test code = 2219) 28 U/L CBC W/AUTO [id number] 00:00:00 Test Item Value Reference Range Interpretation [...] NUCLEATED RBCS (test code = 0.00 K/UL 17270) CBC W/AUTO [id number] 00:00:00 Test Item Value Reference Range Interpretation [...] NUCLEATED RBCS (test code = 0.00 K/UL 15109) CBC W/AUTO [id number] 00:00:00 Test Item Value Reference Range Interpretation [...] NUCLEATED RBCS (test code = 0.00 K/UL 46751) COMPREHENSIVE METABOLIC [id number] 00:00:00 Test Item Value Reference Range Interpretation Comments GLUCOSE (test code = 2217) 108 MG/DL BUN (test code = 2208) 17 MG/DL CREATININE (test code = 2214) 0.84 MG/DL eGFR (2020 CKD-EPI) (test code 88 ML/MIN/1.73 = 94048) CALC BUN/CREAT (test code = 20 RATIO [...] code = 2219) 28 U/L COMPREHENSIVE METABOLIC [id number] 00:00:00 Test Item Value Reference Range Interpretation Comments GLUCOSE (test code = 2217) 108 MG/DL BUN (test code = 2208) 17 MG/DL CREATININE (test code = 2214) 0.84 MG/DL eGFR (2020 CKD-EPI) (test code 88 ML/MIN/1.73 = 14634) CALC BUN/CREAT (test code = 20 RATIO [...] code = 2219) 28 U/L CBC W/AUTO [id number] 00:00:00 Test Item Value Reference Range Interpretation [...] NUCLEATED RBCS (test code = 0.00 K/UL 33605) CBC W/AUTO [id number] 00:00:00 Test Item Value Reference Range Interpretation [...] NUCLEATED RBCS (test code = 0.00 K/UL 36185) CBC W/AUTO [id number] 00:00:00 Test Item Value Reference Range Interpretation [...] NUCLEATED RBCS (test code = 0.00 K/UL 64869) COMPREHENSIVE METABOLIC [id number] 00:00:00 Test Item Value Reference Range Interpretation Comments GLUCOSE (test code = 2217) 108 MG/DL BUN (test code = 2208) 17 MG/DL CREATININE (test code = 2214) 0.84 MG/DL eGFR (2020 CKD-EPI) (test code 88 ML/MIN/1.73 = 15401) CALC BUN/CREAT (test code = 20 RATIO [...] code = 2219) 28 U/L COMPREHENSIVE METABOLIC [id number] 00:00:00 Test Item Value Reference Range Interpretation Comments GLUCOSE (test code = 2217) 108 MG/DL BUN (test code = 2208) 17 MG/DL CREATININE (test code = 2214) 0.84 MG/DL eGFR (2020 CKD-EPI) (test code 88 ML/MIN/1.73 = 70264) CALC BUN/CREAT (test code = 20 RATIO [...] code = 2219) 28 U/L CBC W/AUTO [id number] 00:00:00 Test Item Value Reference Range Interpretation [...] NUCLEATED RBCS (test code = 0.00 K/UL 18080) CBC W/AUTO [id number] 00:00:00 Test Item Value Reference Range Interpretation [...] NUCLEATED RBCS (test code = 0.00 K/UL 59059) COMPREHENSIVE METABOLIC [id number] 00:00:00 Test Item Value Reference Range Interpretation Comments GLUCOSE (test code = 2217) 108 MG/DL BUN (test code = 2208) 17 MG/DL CREATININE (test code = 2214) 0.84 MG/DL eGFR (2020 CKD-EPI) (test code 88 ML/MIN/1.73 = 81698) CALC BUN/CREAT (test code = 20 RATIO [...] code = 2219) 28 U/L CBC W/AUTO [id number] 00:00:00 Test Item Value Reference Range Interpretation [...] NUCLEATED RBCS (test code = 0.00 K/UL 76559) CBC W/AUTO [id number] 00:00:00 Test Item Value Reference Range Interpretation [...] NUCLEATED RBCS (test code = 0.00 K/UL 78435) CBC W/AUTO [id number] 00:00:00 Test Item Value Reference Range Interpretation [...] NUCLEATED RBCS (test code = 0.00 K/UL 73966) COMPREHENSIVE METABOLIC [id number] 00:00:00 Test Item Value Reference Range Interpretation Comments GLUCOSE (test code = 2217) 108 MG/DL BUN (test code = 2208) 17 MG/DL CREATININE (test code = 2214) 0.84 MG/DL eGFR (2020 CKD-EPI) (test code 88 ML/MIN/1.73 = 04382) CALC BUN/CREAT (test code = 20 RATIO [...] code = 2219) 28 U/L COMPREHENSIVE METABOLIC [id number] 00:00:00 Test Item Value Reference Range Interpretation Comments GLUCOSE (test code = 2217) 108 MG/DL BUN (test code = 2208) 17 MG/DL CREATININE (test code = 2214) 0.84 MG/DL eGFR (2020 CKD-EPI) (test code 88 ML/MIN/1.73 = 73142) CALC BUN/CREAT (test code = 20 RATIO [...] code = 2219) 28 U/L CBC W/AUTO [id number] 00:00:00 Test Item Value Reference Range Interpretation [...] NUCLEATED RBCS (test code = 0.00 K/UL 76487) CBC W/AUTO [id number] 00:00:00 Test Item Value Reference Range Interpretation [...] NUCLEATED RBCS (test code = 0.00 K/UL 08455) CBC W/AUTO [id number] 00:00:00 Test Item Value Reference Range Interpretation [...] NUCLEATED RBCS (test code = 0.00 K/UL 52388) COMPREHENSIVE METABOLIC [id number] 00:00:00 Test Item Value Reference Range Interpretation Comments GLUCOSE (test code = 2217) 108 MG/DL BUN (test code = 2208) 17 MG/DL CREATININE (test code = 2214) 0.84 MG/DL eGFR (2020 CKD-EPI) (test code 88 ML/MIN/1.73 = 52106) CALC BUN/CREAT (test code = 20 RATIO [...] code = 2219) 28 U/L COMPREHENSIVE METABOLIC [id number] 00:00:00 Test Item Value Reference Range Interpretation Comments GLUCOSE (test code = 2217) 108 MG/DL BUN (test code = 2208) 17 MG/DL CREATININE (test code = 2214) 0.84 MG/DL eGFR (2020 CKD-EPI) (test code 88 ML/MIN/1.73 = 67492) CALC BUN/CREAT (test code = 20 RATIO [...] code = 2219) 28 U/L CBC W/AUTO [id number] 00:00:00 Test Item Value Reference Range Interpretation [...] NUCLEATED RBCS (test code = 0.00 K/UL 52968) CBC W/AUTO [id number] 00:00:00 Test Item Value Reference Range Interpretation [...] NUCLEATED RBCS (test code = 0.00 K/UL 22587) CBC W/AUTO [id number] 00:00:00 Test Item Value Reference Range Interpretation [...] NUCLEATED RBCS (test code = 0.00 K/UL 64788) COMPREHENSIVE METABOLIC [id number] 00:00:00 Test Item Value Reference Range Interpretation Comments GLUCOSE (test code = 2217) 108 MG/DL BUN (test code = 2208) 17 MG/DL CREATININE (test code = 2214) 0.84 MG/DL eGFR (2020 CKD-EPI) (test code 88 ML/MIN/1.73 = 30613) CALC BUN/CREAT (test code = 20 RATIO [...] code = 2219) 28 U/L COMPREHENSIVE METABOLIC [id number] 00:00:00 Test Item Value Reference Range Interpretation Comments GLUCOSE (test code = 2217) 108 MG/DL BUN (test code = 2208) 17 MG/DL CREATININE (test code = 2214) 0.84 MG/DL eGFR (2020 CKD-EPI) (test code 88 ML/MIN/1.73 = 42002) CALC BUN/CREAT (test code = 20 RATIO [...] = 2219) 28 U/L COMP. METABOLIC PANEL (17995)[id number] 15:36:43 Test Item Value Reference Range Interpretation Comments NA (test code = 133 mmol/L 135-145 L 2537206211) K (test code = 4.8 mmol/L 3.5-5.0 0730951872) CL (test code = 96 mmol/L 98-108 L 2236887273) CO2 TOTAL (test code = 21 mmol/L 23-31 L 9953048729) AGAP (test code = 2-16 1661369550) BUN (test code = 30 mg/dL 7-23 H 6496166921) GLUCOSE (test code = 405 mg/dL 70-110 H 7251152948) CREATININE (test code = 0.74 mg/dL 0.50-1.04 1913111329) TOTAL BILI (test code = 0.6 mg/dL 0.1-1.8 3514746549) CALCIUM (test code = 9.7 mg/dL 8.6-10.6 5950336309) T PROTEIN (test code = 7.9 g/dL 6.3-8.2 9503453099) ALBUMIN (test code = 4.9 g/dL 3.5-5.0 2743248613) ALK PHOS (test code = 66 U/L 34-122 2384201523) ALTv (test code = 37 U/L 5-35 H 1742-6) AST(SGOT) (test code = 31 U/L 13-40 8466827034) eGFR (test code = mL/min/1.73m2 8021344032) CALVIN (test code = CALVIN) Association of [...] tests). Lab Interpretation Abnormal (test code = 17948-9) [facility] WITH [id number] 15:26:02 Test Item Value Reference Range Interpretation Comments WBC (test code = See_Comment [Automated 4490-2) message] The sy stem which generated this [...] (test code = 38.2 fL 39.0-49.9 L 60196-4) RDW-CV (test code = 12.9 % 12.0-15.5 788-0) PLT (test code = See_Comment [Automated 777-3) message] The sy stem which generated this result transmitted reference range : 166 - 358 10*3/ ?L. The reference r doretha was not used to interpret this result as normal/abnormal . MPV (test code = 9.8 fL 9.5-12.9 87885-4) NRBC/100 WBC (test See_Comment [Automat ed code = 7877046089) message] The system which generated this result transmitted reference range : 0.0 - 10.0 /100 WBCs. The refer ence range was not u sed to interpret th is result as normal/abnormal . NRBC x10^3 (test code <0.01 See_Comment [Auto mated = 8994498961) message] The s ystem which generated this result transmitted reference range : 10*3/?L. The reference range was not used to interpret this result as normal/abnormal . GRAN MAT (NEUT) % 50.6 % (test code = 770-8) IMM GRAN % (test code 0.80 % = 4710759841) LYMPH % (test code = 37.0 % 736-9) MONO % (test code = 8.5 % 5905-5) EOS % (test code = 2.2 % 713-8) BASO % (test code = 0.9 % 706-2) GRAN MAT x10^3(ANC) 3.86 10*3/uL 1.88-7.09 (test code = 3316659004) IMM GRAN x10^3 (test 0.06 10*3/uL 0.00-0.06 code = 7456325178) LYMPH x10^3 (test code 2.83 10*3/uL 1.32-3.29 = 731-0) MONO x10^3 (test code 0.65 10*3/uL 0.33-0.92 = 742-7) EOS x10^3 (test code = 0.17 10*3/uL 0.03-0.39 711-2) BASO x10^3 (test code 0.07 10*3/uL 0.01-0.07 = 704-7) Lab Interpretation Abnormal (test code = 97128-1) [id number] Test Item Value Reference Range Interpretation Comments POCT PREG (test code = 1605) negative On board controls acceptable with present C Line (test code = 3574) POCT PREG LOT # (test code = 3575) [id number] POCT PREG TEST DATE (test 09/07/2022 code = 3576) Lab Interpretation (test code = Normal 11085-4) [id number] Test Item Value Reference Range Interpretation Comments GLUBED (test code = GLUBED) 260 mg/dL 60-125 H [id number] 06:42:00 Test Item Value Reference Range Interpretation Comments GLUBED (test code = GLUBED) 265 mg/dL 60-125 H COVID 19 Asymptomatic IH [id number] 17:24:00 Test Item Value Reference Range Interpretation Comments COVID 19 Asymptomatic IH AG (test NEGATIVE NEGATIVE code = COVNONPUIAG) COMPREHENSIVE METABOLIC [id number] 05:38:33 Test Item Value Reference Range Interpretation Comments GLUCOSE (test code = 411 MG/DL 70-99 H 2216) BUN (test code = 24 MG/DL 6-20 H 2207) CREATININE (test 1.13 MG/DL 0.60-1.30 code = 2214) eGFR (2020 CKD-EPI) 62 ML/MIN/1.73 >60 (test code = 02012) CALC BUN/CREAT (test 21 RATIO 6-28 code = 2235) SODIUM (test code = 136 MEQ/L 567-089 4655) POTASSIUM (test code 5.0 MEQ/L 3.5-5.4 = [...] = 49 U/L 5-40 H 2218) LIPID [id number] 05:38:33 Test Item Value Reference Range Interpretation [...] MOREINFORMATION , SEE CLIENT ANNOUNCE MENT AT [email or web address] CalcLDL-C RISK RATIO LDL/HDL 2.79 RATIO <3.22 UNABLE T O CALCULATE (test code = 2238) UNLESS OT HERWISE INDICATED, ALL TEST[facility] [employer] [address] [place] [address] 4 LABORATORY DIRE CTOR: NOAH TODD M.D. CLIA NUMBER [id number] [facility] [place]. [id number] HEMOGLOBIN [id number] 03:55:33 Test Item Value Reference Range Interpretation Comments HEMOGLOBIN A1c (test 11.9 % 4.2-5.6 H [employer] AN DIABETES code = 66599) ASSOCIATION [employer] FOR HGB A1C: PREDIABETES/INC REASED [...] TESTING OR LABORATORY C ONSULTATION. COMPREHENSIVE METABOLIC [id number] 00:00:00 Test Item Value Reference Range Interpretation Comments GLUCOSE (test code = 2217) 411 MG/DL BUN (test code = 2208) 24 MG/DL CREATININE (test code = 2214) 1.13 MG/DL eGFR (2020 CKD-EPI) (test code 62 ML/MIN/1.73 = 79092) CALC BUN/CREAT (test code = 21 RATIO [...] code = 2219) 49 U/L COMPREHENSIVE METABOLIC [id number] 00:00:00 Test Item Value Reference Range Interpretation Comments GLUCOSE (test code = 2217) 411 MG/DL BUN (test code = 2208) 24 MG/DL CREATININE (test code = 2214) 1.13 MG/DL eGFR (2020 CKD-EPI) (test code 62 ML/MIN/1.73 = 65465) CALC BUN/CREAT (test code = 21 RATIO [...] (test code = 2219) 49 U/L HEMOGLOBIN [id number] 00:00:00 Test Item Value Reference Range Interpretation Comments HEMOGLOBIN A1c (test code = 21013) 11.9 % HEMOGLOBIN [id number] 00:00:00 Test Item Value Reference Range Interpretation Comments HEMOGLOBIN A1c (test code = 42295) 11.9 % HEMOGLOBIN [id number] 00:00:00 Test Item Value Reference Range Interpretation Comments HEMOGLOBIN A1c (test code = 46281) 11.9 % LIPID [id number] 00:00:00 Test Item Value Reference Range Interpretation Comments CHOLESTEROL (test code = 2210) 176 MG/DL TRIGLYCERIDES (test code = 2232) 614 MG/DL HDL CHOLESTEROL (test code = 28 MG/DL 2220) CALC LDL CHOL (test code = 2237) (NOTE) MG/DL RISK RATIO LDL/HDL (test code = 2.79 RATIO 2238) LIPID [id number] 00:00:00 Test Item Value Reference Range Interpretation Comments CHOLESTEROL (test code = 2210) 176 MG/DL TRIGLYCERIDES (test code = 2232) 614 MG/DL HDL CHOLESTEROL (test code = 28 MG/DL 2220) CALC LDL CHOL (test code = 2237) (NOTE) MG/DL RISK RATIO LDL/HDL (test code = 2.79 RATIO 2238) COMPREHENSIVE METABOLIC [id number] 00:00:00 Test Item Value Reference Range Interpretation Comments GLUCOSE (test code = 2217) 411 MG/DL BUN (test code = 2208) 24 MG/DL CREATININE (test code = 2214) 1.13 MG/DL eGFR (2020 CKD-EPI) (test code 62 ML/MIN/1.73 = 35402) CALC BUN/CREAT (test code = 21 RATIO [...] code = 2219) 49 U/L COMPREHENSIVE METABOLIC [id number] 00:00:00 Test Item Value Reference Range Interpretation Comments GLUCOSE (test code = 2217) 411 MG/DL BUN (test code = 2208) 24 MG/DL CREATININE (test code = 2214) 1.13 MG/DL eGFR (2020 CKD-EPI) (test code 62 ML/MIN/1.73 = 58942) CALC BUN/CREAT (test code = 21 RATIO [...] (test code = 2219) 49 U/L HEMOGLOBIN [id number] 00:00:00 Test Item Value Reference Range Interpretation Comments HEMOGLOBIN A1c (test code = 93206) 11.9 % HEMOGLOBIN [id number] 00:00:00 Test Item Value Reference Range Interpretation Comments HEMOGLOBIN A1c (test code = 07903) 11.9 % HEMOGLOBIN [id number] 00:00:00 Test Item Value Reference Range Interpretation Comments HEMOGLOBIN A1c (test code = 43802) 11.9 % LIPID [id number] 00:00:00 Test Item Value Reference Range Interpretation Comments CHOLESTEROL (test code = 2210) 176 MG/DL TRIGLYCERIDES (test code = 2232) 614 MG/DL HDL CHOLESTEROL (test code = 28 MG/DL 2219) CALC LDL CHOL (test code = 2237) (NOTE) MG/DL RISK RATIO LDL/HDL (test code = 2.79 RATIO 2238) LIPID [id number] 00:00:00 Test Item Value Reference Range Interpretation Comments CHOLESTEROL (test code = 2210) 176 MG/DL TRIGLYCERIDES (test code = 2232) 614 MG/DL HDL CHOLESTEROL (test code = 28 MG/DL 2220) CALC LDL CHOL (test code = 2237) (NOTE) MG/DL RISK RATIO LDL/HDL (test code = 2.79 RATIO 2238) COMPREHENSIVE METABOLIC [id number] 00:00:00 Test Item Value Reference Range Interpretation Comments GLUCOSE (test code = 2217) 411 MG/DL BUN (test code = 2208) 24 MG/DL CREATININE (test code = 2214) 1.13 MG/DL eGFR (2020 CKD-EPI) (test code 62 ML/MIN/1.73 = 74579) CALC BUN/CREAT (test code = 21 RATIO [...] code = 2219) 49 U/L COMPREHENSIVE METABOLIC [id number] 00:00:00 Test Item Value Reference Range Interpretation Comments GLUCOSE (test code = 2217) 411 MG/DL BUN (test code = 2208) 24 MG/DL CREATININE (test code = 2214) 1.13 MG/DL eGFR (2020 CKD-EPI) (test code 62 ML/MIN/1.73 = 09259) CALC BUN/CREAT (test code = 21 RATIO [...] (test code = 2219) 49 U/L HEMOGLOBIN [id number] 00:00:00 Test Item Value Reference Range Interpretation Comments HEMOGLOBIN A1c (test code = 68018) 11.9 % HEMOGLOBIN [id number] 00:00:00 Test Item Value Reference Range Interpretation Comments HEMOGLOBIN A1c (test code = 91432) 11.9 % HEMOGLOBIN [id number] 00:00:00 Test Item Value Reference Range Interpretation Comments HEMOGLOBIN A1c (test code = 28477) 11.9 % LIPID [id number] 00:00:00 Test Item Value Reference Range Interpretation Comments CHOLESTEROL (test code = 2210) 176 MG/DL TRIGLYCERIDES (test code = 2232) 614 MG/DL HDL CHOLESTEROL (test code = 28 MG/DL 2220) CALC LDL CHOL (test code = 2237) (NOTE) MG/DL RISK RATIO LDL/HDL (test code = 2.79 RATIO 2238) LIPID [id number] 00:00:00 Test Item Value Reference Range Interpretation Comments CHOLESTEROL (test code = 2210) 176 MG/DL TRIGLYCERIDES (test code = 2232) 614 MG/DL HDL CHOLESTEROL (test code = 28 MG/DL 2220) CALC LDL CHOL (test code = 2237) (NOTE) MG/DL RISK RATIO LDL/HDL (test code = 2.79 RATIO 2238) COMPREHENSIVE METABOLIC [id number] 00:00:00 Test Item Value Reference Range Interpretation Comments GLUCOSE (test code = 2217) 411 MG/DL BUN (test code = 8) 24 MG/DL CREATININE (test code = 2214) 1.13 MG/DL eGFR (2020 CKD-EPI) (test code 62 ML/MIN/1.73 = 07917) CALC BUN/CREAT (test code = 21 RATIO [...] code = 2219) 49 U/L COMPREHENSIVE METABOLIC [id number] 00:00:00 Test Item Value Reference Range Interpretation Comments GLUCOSE (test code = 2217) 411 MG/DL BUN (test code = 2208) 24 MG/DL CREATININE (test code = 2214) 1.13 MG/DL eGFR (2020 CKD-EPI) (test code 62 ML/MIN/1.73 = 31272) CALC BUN/CREAT (test code = 21 RATIO [...] (test code = 2219) 49 U/L HEMOGLOBIN [id number] 00:00:00 Test Item Value Reference Range Interpretation Comments HEMOGLOBIN A1c (test code = 75112) 11.9 % HEMOGLOBIN [id number] 00:00:00 Test Item Value Reference Range Interpretation Comments HEMOGLOBIN A1c (test code = 83532) 11.9 % HEMOGLOBIN [id number] 00:00:00 Test Item Value Reference Range Interpretation Comments HEMOGLOBIN A1c (test code = 00395) 11.9 % LIPID [id number] 00:00:00 Test Item Value Reference Range Interpretation Comments CHOLESTEROL (test code = 2210) 176 MG/DL TRIGLYCERIDES (test code = 2232) 614 MG/DL HDL CHOLESTEROL (test code = 28 MG/DL 2220) CALC LDL CHOL (test code = 2237) (NOTE) MG/DL RISK RATIO LDL/HDL (test code = 2.79 RATIO 2238) LIPID [id number] 00:00:00 Test Item Value Reference Range Interpretation Comments CHOLESTEROL (test code = 2210) 176 MG/DL TRIGLYCERIDES (test code = 2232) 614 MG/DL HDL CHOLESTEROL (test code = 28 MG/DL 2220) CALC LDL CHOL (test code = 2237) (NOTE) MG/DL RISK RATIO LDL/HDL (test code = 2.79 RATIO 2238) COMPREHENSIVE METABOLIC [id number] 00:00:00 Test Item Value Reference Range Interpretation Comments GLUCOSE (test code = 2217) 411 MG/DL BUN (test code = 2208) 24 MG/DL CREATININE (test code = 2214) 1.13 MG/DL eGFR (2020 CKD-EPI) (test code 62 ML/MIN/1.73 = 97794) CALC BUN/CREAT (test code = 21 RATIO [...] code = 2219) 49 U/L COMPREHENSIVE METABOLIC [id number] 00:00:00 Test Item Value Reference Range Interpretation Comments GLUCOSE (test code = 2217) 411 MG/DL BUN (test code = 2208) 24 MG/DL CREATININE (test code = 2214) 1.13 MG/DL eGFR (2020 CKD-EPI) (test code 62 ML/MIN/1.73 = 10705) CALC BUN/CREAT (test code = 21 RATIO [...] (test code = 2219) 49 U/L HEMOGLOBIN [id number] 00:00:00 Test Item Value Reference Range Interpretation Comments HEMOGLOBIN A1c (test code = 01789) 11.9 % HEMOGLOBIN [id number] 00:00:00 Test Item Value Reference Range Interpretation Comments HEMOGLOBIN A1c (test code = 74680) 11.9 % HEMOGLOBIN [id number] 00:00:00 Test Item Value Reference Range Interpretation Comments HEMOGLOBIN A1c (test code = 80310) 11.9 % LIPID [id number] 00:00:00 Test Item Value Reference Range Interpretation Comments CHOLESTEROL (test code = 2210) 176 MG/DL TRIGLYCERIDES (test code = 2232) 614 MG/DL HDL CHOLESTEROL (test code = 28 MG/DL 2219) CALC LDL CHOL (test code = 2237) (NOTE) MG/DL RISK RATIO LDL/HDL (test code = 2.79 RATIO 2238) LIPID [id number] 00:00:00 Test Item Value Reference Range Interpretation Comments CHOLESTEROL (test code = 2210) 176 MG/DL TRIGLYCERIDES (test code = 2232) 614 MG/DL HDL CHOLESTEROL (test code = 28 MG/DL 2220) CALC LDL CHOL (test code = 2237) (NOTE) MG/DL RISK RATIO LDL/HDL (test code = 2.79 RATIO 2238) COMPREHENSIVE METABOLIC [id number] 00:00:00 Test Item Value Reference Range Interpretation Comments GLUCOSE (test code = 2217) 411 MG/DL BUN (test code = 2208) 24 MG/DL CREATININE (test code = 2214) 1.13 MG/DL eGFR (2020 CKD-EPI) (test code 62 ML/MIN/1.73 = 52561) CALC BUN/CREAT (test code = 21 RATIO [...] code = 2219) 49 U/L COMPREHENSIVE METABOLIC [id number] 00:00:00 Test Item Value Reference Range Interpretation Comments GLUCOSE (test code = 2217) 411 MG/DL BUN (test code = 2208) 24 MG/DL CREATININE (test code = 2214) 1.13 MG/DL eGFR (2020 CKD-EPI) (test code 62 ML/MIN/1.73 = 06950) CALC BUN/CREAT (test code = 21 RATIO [...] (test code = 2219) 49 U/L HEMOGLOBIN [id number] 00:00:00 Test Item Value Reference Range Interpretation Comments HEMOGLOBIN A1c (test code = 63290) 11.9 % HEMOGLOBIN [id number] 00:00:00 Test Item Value Reference Range Interpretation Comments HEMOGLOBIN A1c (test code = 88373) 11.9 % HEMOGLOBIN [id number] 00:00:00 Test Item Value Reference Range Interpretation Comments HEMOGLOBIN A1c (test code = 24077) 11.9 % LIPID [id number] 00:00:00 Test Item Value Reference Range Interpretation Comments CHOLESTEROL (test code = 2210) 176 MG/DL TRIGLYCERIDES (test code = 2232) 614 MG/DL HDL CHOLESTEROL (test code = 28 MG/DL 2220) CALC LDL CHOL (test code = 2237) (NOTE) MG/DL RISK RATIO LDL/HDL (test code = 2.79 RATIO 2238) LIPID [id number] 00:00:00 Test Item Value Reference Range Interpretation Comments CHOLESTEROL (test code = 2210) 176 MG/DL TRIGLYCERIDES (test code = 2232) 614 MG/DL HDL CHOLESTEROL (test code = 28 MG/DL 2220) CALC LDL CHOL (test code = 2237) (NOTE) MG/DL RISK RATIO LDL/HDL (test code = 2.79 RATIO 2238) COMPREHENSIVE METABOLIC [id number] 00:00:00 Test Item Value Reference Range Interpretation Comments GLUCOSE (test code = 2217) 411 MG/DL BUN (test code = 2208) 24 MG/DL CREATININE (test code = 2214) 1.13 MG/DL eGFR (2020 CKD-EPI) (test code 62 ML/MIN/1.73 = 48322) CALC BUN/CREAT (test code = 21 RATIO [...] code = 2219) 49 U/L COMPREHENSIVE METABOLIC [id number] 00:00:00 Test Item Value Reference Range Interpretation Comments GLUCOSE (test code = 7) 411 MG/DL BUN (test code = 2208) 24 MG/DL CREATININE (test code = 2214) 1.13 MG/DL eGFR (2020 CKD-EPI) (test code 62 ML/MIN/1.73 = 50716) CALC BUN/CREAT (test code = 21 RATIO [...] (test code = 2219) 49 U/L HEMOGLOBIN [id number] 00:00:00 Test Item Value Reference Range Interpretation Comments HEMOGLOBIN A1c (test code = 34670) 11.9 % HEMOGLOBIN [id number] 00:00:00 Test Item Value Reference Range Interpretation Comments HEMOGLOBIN A1c (test code = 33033) 11.9 % HEMOGLOBIN [id number] 00:00:00 Test Item Value Reference Range Interpretation Comments HEMOGLOBIN A1c (test code = 98028) 11.9 % LIPID [id number] 00:00:00 Test Item Value Reference Range Interpretation Comments CHOLESTEROL (test code = 2210) 176 MG/DL TRIGLYCERIDES (test code = 2232) 614 MG/DL HDL CHOLESTEROL (test code = 28 MG/DL 2220) CALC LDL CHOL (test code = 2237) (NOTE) MG/DL RISK RATIO LDL/HDL (test code = 2.79 RATIO 2238) LIPID [id number] 00:00:00 Test Item Value Reference Range Interpretation Comments CHOLESTEROL (test code = 2210) 176 MG/DL TRIGLYCERIDES (test code = 2232) 614 MG/DL HDL CHOLESTEROL (test code = 28 MG/DL 2220) CALC LDL CHOL (test code = 2237) (NOTE) MG/DL RISK RATIO LDL/HDL (test code = 2.79 RATIO 2238) COMPREHENSIVE METABOLIC [id number] 00:00:00 Test Item Value Reference Range Interpretation Comments GLUCOSE (test code = 2217) 411 MG/DL BUN (test code = 2208) 24 MG/DL CREATININE (test code = 2214) 1.13 MG/DL eGFR (2020 CKD-EPI) (test code 62 ML/MIN/1.73 = 70191) CALC BUN/CREAT (test code = 21 RATIO [...] (test code = 2219) 49 U/L HEMOGLOBIN [id number] 00:00:00 Test Item Value Reference Range Interpretation Comments HEMOGLOBIN A1c (test code = 25143) 11.9 % HEMOGLOBIN [id number] 00:00:00 Test Item Value Reference Range Interpretation Comments HEMOGLOBIN A1c (test code = 53748) 11.9 % LIPID [id number] 00:00:00 Test Item Value Reference Range Interpretation Comments CHOLESTEROL (test code = 2210) 176 MG/DL TRIGLYCERIDES (test code = 2232) 614 MG/DL HDL CHOLESTEROL (test code = 28 MG/DL 2219) CALC LDL CHOL (test code = 2237) (NOTE) MG/DL RISK RATIO LDL/HDL (test code = 2.79 RATIO 2237) COMPREHENSIVE METABOLIC [id number] 00:00:00 Test Item Value Reference Range Interpretation Comments GLUCOSE (test code = 2217) 411 MG/DL BUN (test code = 2208) 24 MG/DL CREATININE (test code = 2214) 1.13 MG/DL eGFR (2020 CKD-EPI) (test code 62 ML/MIN/1.73 = 80756) CALC BUN/CREAT (test code = 21 RATIO [...] code = 2219) 49 U/L COMPREHENSIVE METABOLIC [id number] 00:00:00 Test Item Value Reference Range Interpretation Comments GLUCOSE (test code = 2217) 411 MG/DL BUN (test code = 2208) 24 MG/DL CREATININE (test code = 2214) 1.13 MG/DL eGFR (2020 CKD-EPI) (test code 62 ML/MIN/1.73 = 24451) CALC BUN/CREAT (test code = 21 RATIO [...] (test code = 2219) 49 U/L HEMOGLOBIN [id number] 00:00:00 Test Item Value Reference Range Interpretation Comments HEMOGLOBIN A1c (test code = 08916) 11.9 % HEMOGLOBIN [id number] 00:00:00 Test Item Value Reference Range Interpretation Comments HEMOGLOBIN A1c (test code = 24327) 11.9 % HEMOGLOBIN [id number] 00:00:00 Test Item Value Reference Range Interpretation Comments HEMOGLOBIN A1c (test code = 38675) 11.9 % LIPID [id number] 00:00:00 Test Item Value Reference Range Interpretation Comments CHOLESTEROL (test code = 2210) 176 MG/DL TRIGLYCERIDES (test code = 2232) 614 MG/DL HDL CHOLESTEROL (test code = 28 MG/DL 2219) CALC LDL CHOL (test code = 2237) (NOTE) MG/DL RISK RATIO LDL/HDL (test code = 2.79 RATIO 8) LIPID [id number] 00:00:00 Test Item Value Reference Range Interpretation Comments CHOLESTEROL (test code = 2210) 176 MG/DL TRIGLYCERIDES (test code = 2232) 614 MG/DL HDL CHOLESTEROL (test code = 28 MG/DL 2219) CALC LDL CHOL (test code = 2237) (NOTE) MG/DL RISK RATIO LDL/HDL (test code = 2.79 RATIO 2238) COMPREHENSIVE METABOLIC [id number] 00:00:00 Test Item Value Reference Range Interpretation Comments GLUCOSE (test code = 2217) 411 MG/DL BUN (test code = 2208) 24 MG/DL CREATININE (test code = 2214) 1.13 MG/DL eGFR (2020 CKD-EPI) (test code 62 ML/MIN/1.73 = 94864) CALC BUN/CREAT (test code = 21 RATIO [...] CALC GLOBULIN (test code = 3.5 G/DL 224) CALC A/G RATIO (test code = 1.4 RATIO 2233) BILIRUBIN, TOTAL (test code = 0.3 MG/DL 2206) ALKALINE PHOSPHATASE (test 61 U/L code = 2204) AST (test code = 2218) 38 U/L ALT (test code = 2219) 49 U/L COMPREHENSIVE METABOLIC [id number] 00:00:00 Test Item Value Reference Range Interpretation Comments GLUCOSE (test code = 2217) 411 MG/DL BUN (test code = 2208) 24 MG/DL CREATININE (test code = 2214) 1.13 MG/DL eGFR (2020 CKD-EPI) (test code 62 ML/MIN/1.73 = 08625) CALC BUN/CREAT (test code = 21 RATIO [...] (test code = 2219) 49 U/L HEMOGLOBIN [id number] 00:00:00 Test Item Value Reference Range Interpretation Comments HEMOGLOBIN A1c (test code = 59919) 11.9 % HEMOGLOBIN [id number] 00:00:00 Test Item Value Reference Range Interpretation Comments HEMOGLOBIN A1c (test code = 60058) 11.9 % HEMOGLOBIN [id number] 00:00:00 Test Item Value Reference Range Interpretation Comments HEMOGLOBIN A1c (test code = 38853) 11.9 % LIPID [id number] 00:00:00 Test Item Value Reference Range Interpretation Comments CHOLESTEROL (test code = 2210) 176 MG/DL TRIGLYCERIDES (test code = 2232) 614 MG/DL HDL CHOLESTEROL (test code = 28 MG/DL 2220) CALC LDL CHOL (test code = 2237) (NOTE) MG/DL RISK RATIO LDL/HDL (test code = 2.79 RATIO 2238) LIPID [id number] 00:00:00 Test Item Value Reference Range Interpretation Comments CHOLESTEROL (test code = 2210) 176 MG/DL TRIGLYCERIDES (test code = 2232) 614 MG/DL HDL CHOLESTEROL (test code = 28 MG/DL 2220) CALC LDL CHOL (test code = 2237) (NOTE) MG/DL RISK RATIO LDL/HDL (test code = 2.79 RATIO 2238) COMPREHENSIVE METABOLIC [id number] 00:00:00 Test Item Value Reference Range Interpretation Comments GLUCOSE (test code = 2217) 411 MG/DL BUN (test code = 2208) 24 MG/DL CREATININE (test code = 2214) 1.13 MG/DL eGFR (2020 CKD-EPI) (test code 62 ML/MIN/1.73 = 64179) CALC BUN/CREAT (test code = 21 RATIO [...] code = 2219) 49 U/L COMPREHENSIVE METABOLIC [id number] 00:00:00 Test Item Value Reference Range Interpretation Comments GLUCOSE (test code = 7) 411 MG/DL BUN (test code = 2208) 24 MG/DL CREATININE (test code = 2214) 1.13 MG/DL eGFR (2020 CKD-EPI) (test code 62 ML/MIN/1.73 = 62836) CALC BUN/CREAT (test code = 21 RATIO [...] (test code = 2219) 49 U/L HEMOGLOBIN [id number] 00:00:00 Test Item Value Reference Range Interpretation Comments HEMOGLOBIN A1c (test code = 51285) 11.9 % HEMOGLOBIN [id number] 00:00:00 Test Item Value Reference Range Interpretation Comments HEMOGLOBIN A1c (test code = 26790) 11.9 % HEMOGLOBIN [id number] 00:00:00 Test Item Value Reference Range Interpretation Comments HEMOGLOBIN A1c (test code = 46249) 11.9 % LIPID [id number] 00:00:00 Test Item Value Reference Range Interpretation Comments CHOLESTEROL (test code = 2210) 176 MG/DL TRIGLYCERIDES (test code = 2232) 614 MG/DL HDL CHOLESTEROL (test code = 28 MG/DL 2220) CALC LDL CHOL (test code = 2237) (NOTE) MG/DL RISK RATIO LDL/HDL (test code = 2.79 RATIO 2238) LIPID [id number] 00:00:00 Test Item Value Reference Range Interpretation Comments CHOLESTEROL (test code = 2210) 176 MG/DL TRIGLYCERIDES (test code = 2232) 614 MG/DL HDL CHOLESTEROL (test code = 28 MG/DL 2220) CALC LDL CHOL (test code = 2237) (NOTE) MG/DL RISK RATIO LDL/HDL (test code = 2.79 RATIO 2238) CREATINE [id number] 13:35:13 Test Item Value Reference Range Interpretation Comments CK (test code = 2596715246) 71 U/L 33-194 Lab Interpretation (test code = Normal 95243-8) [facility] GLUCOSE (AUTOMATED)2021-06-18 13:07:35 Test Item Value Reference Range Interpretation Comments POCT GLU (test code = 5627998627) 351 mg/dL 70-110 H Lab Interpretation (test code = Abnormal 16072-2) [facility] GLUCOSE(AGE >30DAYS)2021-06-18 13:04:00 Test Item Value Reference Range Interpretation Comments POCT Glu (age>30days) (test code = 351 mg/dL 70-110 A 3342) Lab Interpretation (test code = Abnormal 69487-9) [facility]. Metabolic Panel (09924)2021-06-18 11:14:20 Test Item Value Reference Range Interpretation Comments NA (test code = 134 mmol/L 135-145 L 9884379237) K (test code = 4.6 mmol/L 3.5-5.0 1055914738) CL (test code = 103 mmol/L 98-108 3914501052) CO2 TOTAL (test code = 18 mmol/L 23-31 L 8433119571) AGAP (test code = 2-16 6876865147) BUN (test code = 30 mg/dL 7-23 H 2406749954) GLUCOSE (test code = 390 mg/dL 70-110 H 2975720624) CREATININE (test code = 0.93 mg/dL 0.50-1.04 4569382084) TOTAL BILI (test code = 0.4 mg/dL 0.1-1.7 8246841251) CALCIUM (test code = 10.0 mg/dL 8.6-10.6 7519501765) T PROTEIN (test code = 7.6 g/dL 6.3-8.2 3417833384) ALBUMIN (test code = 4.5 g/dL 3.5-5.0 8530357189) ALK PHOS (test code = 51 U/L 34-122 8812314664) ALTv (test code = 34 U/L 5-35 2-6) AST(SGOT) (test code = 26 U/L 13-40 5157970890) eGFR (test code = mL/min/1.73m2 2473914047) CALVIN (test code = CALVIN) Association of [...] tests). Lab Interpretation Abnormal (test code = 61490-7) [id number] Test Item Value Reference Range Interpretation Comments POCT PREG (test code = 1605) neg On board controls acceptable with yes C Line (test code = 3574) POCT PREG LOT # (test code = 3575) [id number] POCT PREG TEST DATE (test 08/10/2022 code = 3576) Lab Interpretation (test code = Normal 98157-9) [facility] [id number] 11:00:39 Test Item Value Reference Range Interpretation Comments WBC (test code = See_Comment [Automated 5390-2) message] The sy stem which generated this result transmitted reference range : 4.30 - 11.10 10*3/?L. The reference range was not used to interpret this result as normal/abnormal . RBC (test code = See_Comment [Automated 889-8) message] The sy stem which generated this [...] RDW-SD (test code = 40.1 fL 39.0-49.9 09104-6) RDW-CV (test code = 13.2 % 12.0-15.5 788-0) PLT (test code = See_Comment [Automated 277-3) message] The sy stem which generated this result transmitted reference range : 166 - 358 10*3/ ?L. The reference r doretha was not used to interpret this result as normal/abnormal . MPV (test code = 9.5 fL 9.5-12.9 73023-3) NRBC/100 WBC (test See_Comment [Automat ed code = 9713396221) message] The system which generated this result transmitted reference range : 0.0 - 10.0 /100 WBCs. The refer ence range was not u sed to interpret th is result as normal/abnormal . NRBC x10^3 (test code <0.01 See_Comment [Auto mated = 3812230439) message] The s ystem which generated this result transmitted reference range : 10*3/?L. The reference range was not used to interpret this result as normal/abnormal . GRAN MAT (NEUT) % 43.7 % (test code = 770-8) IMM GRAN % (test code 0.70 % = 2661480754) LYMPH % (test code = 41.9 % 736-9) MONO % (test code = 8.8 % 5905-5) EOS % (test code = 3.6 % 713-8) BASO % (test code = 1.3 % 706-2) GRAN MAT x10^3(ANC) 2.68 10*3/uL 1.88-7.09 (test code = 1009794007) IMM GRAN x10^3 (test 0.04 10*3/uL 0.00-0.06 code = 2339737983) LYMPH x10^3 (test code 2.57 10*3/uL 1.32-3.29 = 731-0) MONO x10^3 (test code 0.54 10*3/uL 0.33-0.92 = 742-7) EOS x10^3 (test code = 0.22 10*3/uL 0.03-0.39 711-2) BASO x10^3 (test code 0.08 10*3/uL 0.01-0.07 H = 704-7) Lab Interpretation Abnormal (test code = 27185-6) [facility] [id number] 00:00:00 Test Item Value Reference Range Interpretation Comments ANDIE SPECIES (test code = 34406) NEGATIVE G. VAGINALIS (test code = 83057) NEGATIVE T. VAGINALIS (test code = 91877) NEGATIVE VAGINAL PATHOGENS DNA [id number] 00:00:00 Test Item Value Reference Range Interpretation Comments ANDIE SPECIES (test code = 24753) NEGATIVE G. VAGINALIS (test code = 91830) NEGATIVE T. VAGINALIS (test code = 46981) NEGATIVE VAGINAL PATHOGENS DNA [id number] 00:00:00 Test Item Value Reference Range Interpretation Comments ANDIE SPECIES (test code = 61301) NEGATIVE G. VAGINALIS (test code = 58203) NEGATIVE T. VAGINALIS (test code = 91499) NEGATIVE VAGINAL PATHOGENS DNA [id number] 00:00:00 Test Item Value Reference Range Interpretation Comments ANDIE SPECIES (test code = 20278) NEGATIVE G. VAGINALIS (test code = 15303) NEGATIVE T. VAGINALIS (test code = 68719) NEGATIVE VAGINAL PATHOGENS DNA [id number] 00:00:00 Test Item Value Reference Range Interpretation Comments ANDIE SPECIES (test code = 18143) NEGATIVE G. VAGINALIS (test code = 79888) NEGATIVE T. VAGINALIS (test code = 05433) NEGATIVE VAGINAL PATHOGENS DNA [id number] 00:00:00 Test Item Value Reference Range Interpretation Comments ANDIE SPECIES (test code = 73187) NEGATIVE G. VAGINALIS (test code = 30305) NEGATIVE T. VAGINALIS (test code = 73827) NEGATIVE VAGINAL PATHOGENS DNA [id number] 00:00:00 Test Item Value Reference Range Interpretation Comments ANDIE SPECIES (test code = 30355) NEGATIVE G. VAGINALIS (test code = 62539) NEGATIVE T. VAGINALIS (test code = 11766) NEGATIVE VAGINAL PATHOGENS DNA [id number] 00:00:00 Test Item Value Reference Range Interpretation Comments ANDIE SPECIES (test code = 33116) NEGATIVE G. VAGINALIS (test code = 84038) NEGATIVE T. VAGINALIS (test code = 76246) NEGATIVE VAGINAL PATHOGENS DNA [id number] 00:00:00 Test Item Value Reference Range Interpretation Comments ANDIE SPECIES (test code = 72659) NEGATIVE G. VAGINALIS (test code = 45843) NEGATIVE T. VAGINALIS (test code = 73611) NEGATIVE VAGINAL PATHOGENS DNA [id number] 00:00:00 Test Item Value Reference Range Interpretation Comments ANDIE SPECIES (test code = 14404) NEGATIVE G. VAGINALIS (test code = 95863) NEGATIVE T. VAGINALIS (test code = 51004) NEGATIVE VAGINAL PATHOGENS DNA [id number] 00:00:00 Test Item Value Reference Range Interpretation Comments ANDIE SPECIES (test code = 61217) NEGATIVE G. VAGINALIS (test code = 76316) NEGATIVE T. VAGINALIS (test code = 34384) NEGATIVE VAGINAL PATHOGENS DNA [id number] 00:00:00 Test Item Value Reference Range Interpretation Comments ANDIE SPECIES (test code = 85047) NEGATIVE G. VAGINALIS (test code = 54353) NEGATIVE T. VAGINALIS (test code = 55408) NEGATIVE VAGINAL PATHOGENS DNA [id number] 00:00:00 Test Item Value Reference Range Interpretation Comments ANDIE SPECIES (test code = 43674) NEGATIVE G. VAGINALIS (test code = 98510) NEGATIVE T. VAGINALIS (test code = 63270) NEGATIVE VAGINAL PATHOGENS DNA [id number] 00:00:00 Test Item Value Reference Range Interpretation Comments ANDIE SPECIES (test code = 12261) NEGATIVE G. VAGINALIS (test code = 53890) NEGATIVE T. VAGINALIS (test code = 17059) NEGATIVE VAGINAL PATHOGENS DNA [id number] 00:00:00 Test Item Value Reference Range Interpretation Comments ANDIE SPECIES (test code = 99463) NEGATIVE G. VAGINALIS (test code = 71089) NEGATIVE T. VAGINALIS (test code = 56970) NEGATIVE VAGINAL PATHOGENS DNA [id number] 00:00:00 Test Item Value Reference Range Interpretation Comments ANDIE SPECIES (test code = 28594) NEGATIVE G. VAGINALIS (test code = 65634) NEGATIVE T. VAGINALIS (test code = 85816) NEGATIVE VAGINAL PATHOGENS DNA [id number] 00:00:00 Test Item Value Reference Range Interpretation Comments ANDIE SPECIES (test code = 90490) NEGATIVE G. VAGINALIS (test code = 78758) NEGATIVE T. VAGINALIS (test code = 27385) NEGATIVE VAGINAL PATHOGENS DNA [id number] 00:00:00 Test Item Value Reference Range Interpretation Comments ANDIE SPECIES (test code = 16322) NEGATIVE G. VAGINALIS (test code = 12069) NEGATIVE T. VAGINALIS (test code = 06761) NEGATIVE VAGINAL PATHOGENS DNA [id number] 00:00:00 Test Item Value Reference Range Interpretation Comments ANDIE SPECIES (test code = 29274) NEGATIVE G. VAGINALIS (test code = 14828) NEGATIVE T. VAGINALIS (test code = 52850) NEGATIVE VAGINAL PATHOGENS DNA [id number] 00:00:00 Test Item Value Reference Range Interpretation Comments ANDIE SPECIES (test code = ) NEGATIVE G. VAGINALIS (test code = 56891) NEGATIVE T. VAGINALIS (test code = 23005) NEGATIVE VAGINAL PATHOGENS DNA [id number] 00:00:00 Test Item Value Reference Range Interpretation Comments ANDIE SPECIES (test code = ) NEGATIVE G. VAGINALIS (test code = 41367) NEGATIVE T. VAGINALIS (test code = 64769) NEGATIVE SARS-CoV-2 (COVID-19) by RT-PCR (HIGH RISK)2021-02-26 00:00:00 Test Item Value Reference Range Interpretation Comments SARS-CoV-2 INTERPRETATION (test NEGATIVE code = 87998) SOURCE (test code = 21388) NOT SPECIFIED SARS-CoV-2 (COVID-19) by RT-PCR (HIGH RISK)2021-02-26 00:00:00 Test Item Value Reference Range Interpretation Comments SARS-CoV-2 INTERPRETATION (test NEGATIVE code = 92305) SOURCE (test code = 68068) NOT SPECIFIED SARS-CoV-2 (COVID-19) by RT-PCR (HIGH RISK)2021-02-26 00:00:00 Test Item Value Reference Range Interpretation Comments SARS-CoV-2 INTERPRETATION (test NEGATIVE code = 15470) SOURCE (test code = 99394) NOT SPECIFIED SARS-CoV-2 (COVID-19) by RT-PCR (HIGH RISK)2021-02-26 00:00:00 Test Item Value Reference Range Interpretation Comments SARS-CoV-2 INTERPRETATION (test NEGATIVE code = 78426) SOURCE (test code = 18967) NOT SPECIFIED SARS-CoV-2 (COVID-19) by RT-PCR (HIGH RISK)2021-02-26 00:00:00 Test Item Value Reference Range Interpretation Comments SARS-CoV-2 INTERPRETATION (test NEGATIVE code = 26907) SOURCE (test code = 96917) NOT SPECIFIED SARS-CoV-2 (COVID-19) by RT-PCR (HIGH RISK)2021-02-26 00:00:00 Test Item Value Reference Range Interpretation Comments SARS-CoV-2 INTERPRETATION (test NEGATIVE code = 10118) SOURCE (test code = 77175) NOT SPECIFIED SARS-CoV-2 (COVID-19) by RT-PCR (HIGH RISK)2021-02-26 00:00:00 Test Item Value Reference Range Interpretation Comments SARS-CoV-2 INTERPRETATION (test NEGATIVE code = 41776) SOURCE (test code = 15188) NOT SPECIFIED SARS-CoV-2 (COVID-19) by RT-PCR (HIGH RISK)2021-02-26 00:00:00 Test Item Value Reference Range Interpretation Comments SARS-CoV-2 INTERPRETATION (test NEGATIVE code = 83453) SOURCE (test code = 11782) NOT SPECIFIED SARS-CoV-2 (COVID-19) by RT-PCR (HIGH RISK)2021-02-26 00:00:00 Test Item Value Reference Range Interpretation Comments SARS-CoV-2 INTERPRETATION (test NEGATIVE code = 44877) SOURCE (test code = 70861) NOT SPECIFIED SARS-CoV-2 (COVID-19) by RT-PCR (HIGH RISK)2021-02-26 00:00:00 Test Item Value Reference Range Interpretation Comments SARS-CoV-2 INTERPRETATION (test NEGATIVE code = 07793) SOURCE (test code = 55115) NOT SPECIFIED SARS-CoV-2 (COVID-19) by RT-PCR (HIGH RISK)2021-02-26 00:00:00 Test Item Value Reference Range Interpretation Comments SARS-CoV-2 INTERPRETATION (test NEGATIVE code = 33209) SOURCE (test code = 50752) NOT SPECIFIED SARS-CoV-2 (COVID-19) by RT-PCR (HIGH RISK)2021-02-26 00:00:00 Test Item Value Reference Range Interpretation Comments SARS-CoV-2 INTERPRETATION (test NEGATIVE code = 51170) SOURCE (test code = 47676) NOT SPECIFIED SARS-CoV-2 (COVID-19) by RT-PCR (HIGH RISK)2021-02-26 00:00:00 Test Item Value Reference Range Interpretation Comments SARS-CoV-2 INTERPRETATION (test NEGATIVE code = 78625) SOURCE (test code = 68871) NOT SPECIFIED SARS-CoV-2 (COVID-19) by RT-PCR (HIGH RISK)2021-02-26 00:00:00 Test Item Value Reference Range Interpretation Comments SARS-CoV-2 INTERPRETATION (test NEGATIVE code = 04299) SOURCE (test code = 06480) NOT SPECIFIED SARS-CoV-2 (COVID-19) by RT-PCR (HIGH RISK)2021-02-26 00:00:00 Test Item Value Reference Range Interpretation Comments SARS-CoV-2 INTERPRETATION (test NEGATIVE code = 79901) SOURCE (test code = 59890) NOT SPECIFIED SARS-CoV-2 (COVID-19) by RT-PCR (HIGH RISK)2021-02-26 00:00:00 Test Item Value Reference Range Interpretation Comments SARS-CoV-2 INTERPRETATION (test NEGATIVE code = 29716) SOURCE (test code = 15599) NOT SPECIFIED SARS-CoV-2 (COVID-19) by RT-PCR (HIGH RISK)2021-02-26 00:00:00 Test Item Value Reference Range Interpretation Comments SARS-CoV-2 INTERPRETATION (test NEGATIVE code = 80227) SOURCE (test code = 27132) NOT SPECIFIED SARS-CoV-2 (COVID-19) by RT-PCR (HIGH RISK)2021-02-26 00:00:00 Test Item Value Reference Range Interpretation Comments SARS-CoV-2 INTERPRETATION (test NEGATIVE code = 48224) SOURCE (test code = 71092) NOT SPECIFIED SARS-CoV-2 (COVID-19) by RT-PCR (HIGH RISK)2021-02-26 00:00:00 Test Item Value Reference Range Interpretation Comments SARS-CoV-2 INTERPRETATION (test NEGATIVE code = 15860) SOURCE (test code = 41982) NOT SPECIFIED SARS-CoV-2 (COVID-19) by RT-PCR (HIGH RISK)2021-02-26 00:00:00 Test Item Value Reference Range Interpretation Comments SARS-CoV-2 INTERPRETATION (test NEGATIVE code = 08208) SOURCE (test code = 71520) NOT SPECIFIED SARS-CoV-2 (COVID-19) by RT-PCR (HIGH RISK)2021-02-26 00:00:00 Test Item Value Reference Range Interpretation Comments SARS-CoV-2 INTERPRETATION (test NEGATIVE code = 18182) SOURCE (test code = 43242) NOT SPECIFIED CULTURE, URINE [ADDED]2021-02-13 00:00:00 Test Item Value Reference Range Interpretation Comments CULTURE, URINE (test SPECIMEN NUMBER: code = 66886) [id number] CULTURE, URINE [ADDED]2021-02-13 00:00:00 Test Item Value Reference Range Interpretation Comments CULTURE, URINE (test SPECIMEN NUMBER: code = 13293) [id number] CULTURE, URINE [ADDED]2021-02-13 00:00:00 Test Item Value Reference Range Interpretation Comments CULTURE, URINE (test SPECIMEN NUMBER: code = 66185) [id number] CULTURE, URINE [ADDED]2021-02-13 00:00:00 Test Item Value Reference Range Interpretation Comments CULTURE, URINE (test SPECIMEN NUMBER: code = 56523) [id number] CULTURE, URINE [ADDED]2021-02-13 00:00:00 Test Item Value Reference Range Interpretation Comments CULTURE, URINE (test SPECIMEN NUMBER: code = 52421) [id number] CULTURE, URINE [ADDED]2021-02-13 00:00:00 Test Item Value Reference Range Interpretation Comments CULTURE, URINE (test SPECIMEN NUMBER: code = 40442) [id number] CULTURE, URINE [ADDED]2021-02-13 00:00:00 Test Item Value Reference Range Interpretation Comments CULTURE, URINE (test SPECIMEN NUMBER: code = 96414) [id number] CULTURE, URINE [ADDED]2021-02-13 00:00:00 Test Item Value Reference Range Interpretation Comments CULTURE, URINE (test SPECIMEN NUMBER: code = 63103) [id number] CULTURE, URINE [ADDED]2021-02-13 00:00:00 Test Item Value Reference Range Interpretation Comments CULTURE, URINE (test SPECIMEN NUMBER: code = 54687) [id number] CULTURE, URINE [ADDED]2021-02-13 00:00:00 Test Item Value Reference Range Interpretation Comments CULTURE, URINE (test SPECIMEN NUMBER: code = 90632) [id number] CULTURE, URINE [ADDED]2021-02-13 00:00:00 Test Item Value Reference Range Interpretation Comments CULTURE, URINE (test SPECIMEN NUMBER: code = 27936) [id number] CULTURE, URINE [ADDED]2021-02-13 00:00:00 Test Item Value Reference Range Interpretation Comments CULTURE, URINE (test SPECIMEN NUMBER: code = 37811) [id number] CULTURE, URINE [ADDED]2021-02-13 00:00:00 Test Item Value Reference Range Interpretation Comments CULTURE, URINE (test SPECIMEN NUMBER: code = 18704) [id number] CULTURE, URINE [ADDED]2021-02-13 00:00:00 Test Item Value Reference Range Interpretation Comments CULTURE, URINE (test SPECIMEN NUMBER: code = 52805) [id number] CULTURE, URINE [ADDED]2021-02-13 00:00:00 Test Item Value Reference Range Interpretation Comments CULTURE, URINE (test SPECIMEN NUMBER: code = 64436) [id number] CULTURE, URINE [ADDED]2021-02-13 00:00:00 Test Item Value Reference Range Interpretation Comments CULTURE, URINE (test SPECIMEN NUMBER: code = 27564) [id number] CULTURE, URINE [ADDED]2021-02-13 00:00:00 Test Item Value Reference Range Interpretation Comments CULTURE, URINE (test SPECIMEN NUMBER: code = 78952) [id number] CULTURE, URINE [ADDED]2021-02-13 00:00:00 Test Item Value Reference Range Interpretation Comments CULTURE, URINE (test SPECIMEN NUMBER: code = 47437) [id number] CULTURE, URINE [ADDED]2021-02-13 00:00:00 Test Item Value Reference Range Interpretation Comments CULTURE, URINE (test SPECIMEN NUMBER: code = 63185) [id number] CULTURE, URINE [ADDED]2021-02-13 00:00:00 Test Item Value Reference Range Interpretation Comments CULTURE, URINE (test SPECIMEN NUMBER: code = 88350) [id number] CULTURE, URINE [ADDED]2021-02-13 00:00:00 Test Item Value Reference Range Interpretation Comments CULTURE, URINE (test SPECIMEN NUMBER: code = 00860) [id number] VAGINAL PATHOGENS DNA [id number] 00:00:00 Test Item Value Reference Range Interpretation Comments ANDIE SPECIES (test code = ) NEGATIVE G. VAGINALIS (test code = 85114) POSITIVE T. VAGINALIS (test code = 96643) NEGATIVE VAGINAL PATHOGENS DNA [id number] 00:00:00 Test Item Value Reference Range Interpretation Comments ANDIE SPECIES (test code = 79140) NEGATIVE G. VAGINALIS (test code = 82299) POSITIVE T. VAGINALIS (test code = 00559) NEGATIVE VAGINAL PATHOGENS DNA [id number] 00:00:00 Test Item Value Reference Range Interpretation Comments ANDIE SPECIES (test code = 07797) NEGATIVE G. VAGINALIS (test code = 46635) POSITIVE T. VAGINALIS (test code = 86156) NEGATIVE VAGINAL PATHOGENS DNA [id number] 00:00:00 Test Item Value Reference Range Interpretation Comments ANDIE SPECIES (test code = 64237) NEGATIVE G. VAGINALIS (test code = 79120) POSITIVE T. VAGINALIS (test code = 25134) NEGATIVE VAGINAL PATHOGENS DNA [id number] 00:00:00 Test Item Value Reference Range Interpretation Comments ANDIE SPECIES (test code = 49240) NEGATIVE G. VAGINALIS (test code = 63790) POSITIVE T. VAGINALIS (test code = 25499) NEGATIVE VAGINAL PATHOGENS DNA [id number] 00:00:00 Test Item Value Reference Range Interpretation Comments ANDIE SPECIES (test code = 11459) NEGATIVE G. VAGINALIS (test code = 69539) POSITIVE T. VAGINALIS (test code = 30309) NEGATIVE VAGINAL PATHOGENS DNA [id number] 00:00:00 Test Item Value Reference Range Interpretation Comments ANDIE SPECIES (test code = 29805) NEGATIVE G. VAGINALIS (test code = 59273) POSITIVE T. VAGINALIS (test code = 94245) NEGATIVE VAGINAL PATHOGENS DNA [id number] 00:00:00 Test Item Value Reference Range Interpretation Comments ANDIE SPECIES (test code = 22616) NEGATIVE G. VAGINALIS (test code = 39038) POSITIVE T. VAGINALIS (test code = 38450) NEGATIVE VAGINAL PATHOGENS DNA [id number] 00:00:00 Test Item Value Reference Range Interpretation Comments ANDIE SPECIES (test code = 66565) NEGATIVE G. VAGINALIS (test code = 98896) POSITIVE T. VAGINALIS (test code = 89831) NEGATIVE VAGINAL PATHOGENS DNA [id number] 00:00:00 Test Item Value Reference Range Interpretation Comments ANDIE SPECIES (test code = 14139) NEGATIVE G. VAGINALIS (test code = 49206) POSITIVE T. VAGINALIS (test code = 11328) NEGATIVE VAGINAL PATHOGENS DNA [id number] 00:00:00 Test Item Value Reference Range Interpretation Comments ANDIE SPECIES (test code = 74096) NEGATIVE G. VAGINALIS (test code = 03864) POSITIVE T. VAGINALIS (test code = 60697) NEGATIVE VAGINAL PATHOGENS DNA [id number] 00:00:00 Test Item Value Reference Range Interpretation Comments ANDIE SPECIES (test code = 48613) NEGATIVE G. VAGINALIS (test code = 07904) POSITIVE T. VAGINALIS (test code = 32887) NEGATIVE VAGINAL PATHOGENS DNA [id number] 00:00:00 Test Item Value Reference Range Interpretation Comments ANDIE SPECIES (test code = 05942) NEGATIVE G. VAGINALIS (test code = 80435) POSITIVE T. VAGINALIS (test code = 08959) NEGATIVE VAGINAL PATHOGENS DNA [id number] 00:00:00 Test Item Value Reference Range Interpretation Comments ANDIE SPECIES (test code = 58423) NEGATIVE G. VAGINALIS (test code = 68929) POSITIVE T. VAGINALIS (test code = 18361) NEGATIVE VAGINAL PATHOGENS DNA [id number] 00:00:00 Test Item Value Reference Range Interpretation Comments ANDIE SPECIES (test code = 73430) NEGATIVE G. VAGINALIS (test code = 14280) POSITIVE T. VAGINALIS (test code = 47963) NEGATIVE VAGINAL PATHOGENS DNA [id number] 00:00:00 Test Item Value Reference Range Interpretation Comments ANDIE SPECIES (test code = 04728) NEGATIVE G. VAGINALIS (test code = 08369) POSITIVE T. VAGINALIS (test code = 80183) NEGATIVE VAGINAL PATHOGENS DNA [id number] 00:00:00 Test Item Value Reference Range Interpretation Comments ANDIE SPECIES (test code = 09225) NEGATIVE G. VAGINALIS (test code = 32220) POSITIVE T. VAGINALIS (test code = 58888) NEGATIVE VAGINAL PATHOGENS DNA [id number] 00:00:00 Test Item Value Reference Range Interpretation Comments ANDIE SPECIES (test code = 49054) NEGATIVE G. VAGINALIS (test code = 16383) POSITIVE T. VAGINALIS (test code = 52351) NEGATIVE VAGINAL PATHOGENS DNA [id number] 00:00:00 Test Item Value Reference Range Interpretation Comments ANDIE SPECIES (test code = 37737) NEGATIVE G. VAGINALIS (test code = 82450) POSITIVE T. VAGINALIS (test code = 45598) NEGATIVE VAGINAL PATHOGENS DNA [id number] 00:00:00 Test Item Value Reference Range Interpretation Comments ANDIE SPECIES (test code = 84911) NEGATIVE G. VAGINALIS (test code = 38631) POSITIVE T. VAGINALIS (test code = 47558) NEGATIVE VAGINAL PATHOGENS DNA [id number] 00:00:00 Test Item Value Reference Range Interpretation Comments ANDIE SPECIES (test code = 21898) NEGATIVE G. VAGINALIS (test code = 56197) POSITIVE T. VAGINALIS (test code = 29344) NEGATIVE BLOOD GROUP (ABO) AND RH [id number] 00:00:00 Test Item Value Reference Range Interpretation Comments BLOOD TYPE AND RH (test code = A POSITIVE 3901) BLOOD GROUP (ABO) AND RH [id number] 00:00:00 Test Item Value Reference Range Interpretation Comments BLOOD TYPE AND RH (test code = A POSITIVE 3901) BLOOD GROUP (ABO) AND RH [id number] 00:00:00 Test Item Value Reference Range Interpretation Comments BLOOD TYPE AND RH (test code = A POSITIVE 3901) HEMOGLOBIN [id number] 00:00:00 Test Item Value Reference Range Interpretation Comments HEMOGLOBIN A1c (test code = 04067) 11.8 % HEMOGLOBIN [id number] 00:00:00 Test Item Value Reference Range Interpretation Comments HEMOGLOBIN A1c (test code = 62943) 11.8 % HEMOGLOBIN [id number] 00:00:00 Test Item Value Reference Range Interpretation Comments HEMOGLOBIN A1c (test code = 45810) 11.8 % BLOOD GROUP (ABO) AND RH [id number] 00:00:00 Test Item Value Reference Range Interpretation Comments BLOOD TYPE AND RH (test code = A POSITIVE 3901) BLOOD GROUP (ABO) AND RH [id number] 00:00:00 Test Item Value Reference Range Interpretation Comments BLOOD TYPE AND RH (test code = A POSITIVE 3901) BLOOD GROUP (ABO) AND RH [id number] 00:00:00 Test Item Value Reference Range Interpretation Comments BLOOD TYPE AND RH (test code = A POSITIVE 3901) HEMOGLOBIN [id number] 00:00:00 Test Item Value Reference Range Interpretation Comments HEMOGLOBIN A1c (test code = 91614) 11.8 % HEMOGLOBIN [id number] 00:00:00 Test Item Value Reference Range Interpretation Comments HEMOGLOBIN A1c (test code = 65464) 11.8 % HEMOGLOBIN [id number] 00:00:00 Test Item Value Reference Range Interpretation Comments HEMOGLOBIN A1c (test code = 38288) 11.8 % BLOOD GROUP (ABO) AND RH [id number] 00:00:00 Test Item Value Reference Range Interpretation Comments BLOOD TYPE AND RH (test code = A POSITIVE 3901) BLOOD GROUP (ABO) AND RH [id number] 00:00:00 Test Item Value Reference Range Interpretation Comments BLOOD TYPE AND RH (test code = A POSITIVE 3901) BLOOD GROUP (ABO) AND RH [id number] 00:00:00 Test Item Value Reference Range Interpretation Comments BLOOD TYPE AND RH (test code = A POSITIVE 3901) HEMOGLOBIN [id number] 00:00:00 Test Item Value Reference Range Interpretation Comments HEMOGLOBIN A1c (test code = 18417) 11.8 % HEMOGLOBIN [id number] 00:00:00 Test Item Value Reference Range Interpretation Comments HEMOGLOBIN A1c (test code = 12237) 11.8 % HEMOGLOBIN [id number] 00:00:00 Test Item Value Reference Range Interpretation Comments HEMOGLOBIN A1c (test code = 78492) 11.8 % BLOOD GROUP (ABO) AND RH [id number] 00:00:00 Test Item Value Reference Range Interpretation Comments BLOOD TYPE AND RH (test code = A POSITIVE 3901) BLOOD GROUP (ABO) AND RH [id number] 00:00:00 Test Item Value Reference Range Interpretation Comments BLOOD TYPE AND RH (test code = A POSITIVE 3901) BLOOD GROUP (ABO) AND RH [id number] 00:00:00 Test Item Value Reference Range Interpretation Comments BLOOD TYPE AND RH (test code = A POSITIVE 3901) HEMOGLOBIN [id number] 00:00:00 Test Item Value Reference Range Interpretation Comments HEMOGLOBIN A1c (test code = 80780) 11.8 % HEMOGLOBIN [id number] 00:00:00 Test Item Value Reference Range Interpretation Comments HEMOGLOBIN A1c (test code = 63504) 11.8 % HEMOGLOBIN [id number] 00:00:00 Test Item Value Reference Range Interpretation Comments HEMOGLOBIN A1c (test code = 66112) 11.8 % BLOOD GROUP (ABO) AND RH [id number] 00:00:00 Test Item Value Reference Range Interpretation Comments BLOOD TYPE AND RH (test code = A POSITIVE 3901) BLOOD GROUP (ABO) AND RH [id number] 00:00:00 Test Item Value Reference Range Interpretation Comments BLOOD TYPE AND RH (test code = A POSITIVE 3901) BLOOD GROUP (ABO) AND RH [id number] 00:00:00 Test Item Value Reference Range Interpretation Comments BLOOD TYPE AND RH (test code = A POSITIVE 3901) HEMOGLOBIN [id number] 00:00:00 Test Item Value Reference Range Interpretation Comments HEMOGLOBIN A1c (test code = 81479) 11.8 % HEMOGLOBIN [id number] 00:00:00 Test Item Value Reference Range Interpretation Comments HEMOGLOBIN A1c (test code = 04212) 11.8 % HEMOGLOBIN [id number] 00:00:00 Test Item Value Reference Range Interpretation Comments HEMOGLOBIN A1c (test code = 48688) 11.8 % BLOOD GROUP (ABO) AND RH [id number] 00:00:00 Test Item Value Reference Range Interpretation Comments BLOOD TYPE AND RH (test code = A POSITIVE 3901) BLOOD GROUP (ABO) AND RH [id number] 00:00:00 Test Item Value Reference Range Interpretation Comments BLOOD TYPE AND RH (test code = A POSITIVE 3901) BLOOD GROUP (ABO) AND RH [id number] 00:00:00 Test Item Value Reference Range Interpretation Comments BLOOD TYPE AND RH (test code = A POSITIVE 3901) HEMOGLOBIN [id number] 00:00:00 Test Item Value Reference Range Interpretation Comments HEMOGLOBIN A1c (test code = 85656) 11.8 % HEMOGLOBIN [id number] 00:00:00 Test Item Value Reference Range Interpretation Comments HEMOGLOBIN A1c (test code = 37774) 11.8 % HEMOGLOBIN [id number] 00:00:00 Test Item Value Reference Range Interpretation Comments HEMOGLOBIN A1c (test code = 86050) 11.8 % BLOOD GROUP (ABO) AND RH [id number] 00:00:00 Test Item Value Reference Range Interpretation Comments BLOOD TYPE AND RH (test code = A POSITIVE 3901) BLOOD GROUP (ABO) AND RH [id number] 00:00:00 Test Item Value Reference Range Interpretation Comments BLOOD TYPE AND RH (test code = A POSITIVE 3901) BLOOD GROUP (ABO) AND RH [id number] 00:00:00 Test Item Value Reference Range Interpretation Comments BLOOD TYPE AND RH (test code = A POSITIVE 3901) HEMOGLOBIN [id number] 00:00:00 Test Item Value Reference Range Interpretation Comments HEMOGLOBIN A1c (test code = 12008) 11.8 % BLOOD GROUP (ABO) AND RH [id number] 00:00:00 Test Item Value Reference Range Interpretation Comments BLOOD TYPE AND RH (test code = A POSITIVE 3901) HEMOGLOBIN [id number] 00:00:00 Test Item Value Reference Range Interpretation Comments HEMOGLOBIN A1c (test code = 75315) 11.8 % HEMOGLOBIN [id number] 00:00:00 Test Item Value Reference Range Interpretation Comments HEMOGLOBIN A1c (test code = 13125) 11.8 % BLOOD GROUP (ABO) AND RH [id number] 00:00:00 Test Item Value Reference Range Interpretation Comments BLOOD TYPE AND RH (test code = A POSITIVE 3901) HEMOGLOBIN [id number] 00:00:00 Test Item Value Reference Range Interpretation Comments HEMOGLOBIN A1c (test code = 55943) 11.8 % HEMOGLOBIN [id number] 00:00:00 Test Item Value Reference Range Interpretation Comments HEMOGLOBIN A1c (test code = 05705) 11.8 % BLOOD GROUP (ABO) AND RH [id number] 00:00:00 Test Item Value Reference Range Interpretation Comments BLOOD TYPE AND RH (test code = A POSITIVE 3901) BLOOD GROUP (ABO) AND RH [id number] 00:00:00 Test Item Value Reference Range Interpretation Comments BLOOD TYPE AND RH (test code = A POSITIVE 3901) BLOOD GROUP (ABO) AND RH [id number] 00:00:00 Test Item Value Reference Range Interpretation Comments BLOOD TYPE AND RH (test code = A POSITIVE 3901) HEMOGLOBIN [id number] 00:00:00 Test Item Value Reference Range Interpretation Comments HEMOGLOBIN A1c (test code = 74025) 11.8 % HEMOGLOBIN [id number] 00:00:00 Test Item Value Reference Range Interpretation Comments HEMOGLOBIN A1c (test code = 83257) 11.8 % HEMOGLOBIN [id number] 00:00:00 Test Item Value Reference Range Interpretation Comments HEMOGLOBIN A1c (test code = 05238) 11.8 % BLOOD GROUP (ABO) AND RH [id number] 00:00:00 Test Item Value Reference Range Interpretation Comments BLOOD TYPE AND RH (test code = A POSITIVE 3901) BLOOD GROUP (ABO) AND RH [id number] 00:00:00 Test Item Value Reference Range Interpretation Comments BLOOD TYPE AND RH (test code = A POSITIVE 3901) BLOOD GROUP (ABO) AND RH [id number] 00:00:00 Test Item Value Reference Range Interpretation Comments BLOOD TYPE AND RH (test code = A POSITIVE 3901) HEMOGLOBIN [id number] 00:00:00 Test Item Value Reference Range Interpretation Comments HEMOGLOBIN A1c (test code = 29726) 11.8 % HEMOGLOBIN [id number] 00:00:00 Test Item Value Reference Range Interpretation Comments HEMOGLOBIN A1c (test code = 63622) 11.8 % HEMOGLOBIN [id number] 00:00:00 Test Item Value Reference Range Interpretation Comments HEMOGLOBIN A1c (test code = 90151) 11.8 % BLOOD GROUP (ABO) AND RH [id number] 00:00:00 Test Item Value Reference Range Interpretation Comments BLOOD TYPE AND RH (test code = A POSITIVE 3901) BLOOD GROUP (ABO) AND RH [id number] 00:00:00 Test Item Value Reference Range Interpretation Comments BLOOD TYPE AND RH (test code = A POSITIVE 3901) BLOOD GROUP (ABO) AND RH [id number] 00:00:00 Test Item Value Reference Range Interpretation Comments BLOOD TYPE AND RH (test code = A POSITIVE 3901) HEMOGLOBIN [id number] 00:00:00 Test Item Value Reference Range Interpretation Comments HEMOGLOBIN A1c (test code = 74299) 11.8 % HEMOGLOBIN [id number] 00:00:00 Test Item Value Reference Range Interpretation Comments HEMOGLOBIN A1c (test code = 90069) 11.8 % HEMOGLOBIN [id number] 00:00:00 Test Item Value Reference Range Interpretation Comments HEMOGLOBIN A1c (test code = 51753) 11.8 % COMPREHENSIVE METABOLIC [id number] 00:00:00 Test Item Value Reference Range Interpretation Comments GLUCOSE (test code = 2217) 277 MG/DL BUN (test code = 2208) 26 MG/DL CREATININE (test code = 2214) 1.04 MG/DL eGFR AMER. (test code 77 ML/MIN/1.73 = 48551) eGFR NON- AMER. (test 66 ML/MIN/1.73 code = 67522) CALC BUN/CREAT (test code = 25 RATIO 5) SODIUM (test code = 2231) 137 MEQ/L [...] code = 2219) 51 U/L COMPREHENSIVE METABOLIC [id number] 00:00:00 Test Item Value Reference Range Interpretation Comments GLUCOSE (test code = 2217) 277 MG/DL BUN (test code = 2208) 26 MG/DL CREATININE (test code = 2214) 1.04 MG/DL eGFR AMER. (test code 77 ML/MIN/1.73 = 80688) eGFR NON- AMER. (test 66 ML/MIN/1.73 code = 14920) CALC BUN/CREAT (test code = 25 RATIO [...] (test code = 2219) 51 U/L CULTURE, [id number] 00:00:00 Test Item Value Reference Range Interpretation Comments CULTURE, URINE (test SPECIMEN NUMBER: code = 97196) [id number] CULTURE, [id number] 00:00:00 Test Item Value Reference Range Interpretation Comments CULTURE, URINE (test SPECIMEN NUMBER: code = 25543) [id number] COMPREHENSIVE METABOLIC [id number] 00:00:00 Test Item Value Reference Range Interpretation Comments GLUCOSE (test code = 2217) 277 MG/DL BUN (test code = 2208) 26 MG/DL CREATININE (test code = 2214) 1.04 MG/DL eGFR AMER. (test code 77 ML/MIN/1.73 = 52464) eGFR NON- AMER. (test 66 ML/MIN/1.73 code = 08550) CALC BUN/CREAT (test code = 25 RATIO [...] code = 2219) 51 U/L COMPREHENSIVE METABOLIC [id number] 00:00:00 Test Item Value Reference Range Interpretation Comments GLUCOSE (test code = 2217) 277 MG/DL BUN (test code = 2208) 26 MG/DL CREATININE (test code = 2214) 1.04 MG/DL eGFR AMER. (test code 77 ML/MIN/1.73 = 17687) eGFR NON- AMER. (test 66 ML/MIN/1.73 code = 69239) CALC BUN/CREAT (test code = 25 RATIO [...] (test code = 2219) 51 U/L CULTURE, [id number] 00:00:00 Test Item Value Reference Range Interpretation Comments CULTURE, URINE (test SPECIMEN NUMBER: code = 10443) [id number] CULTURE, [id number] 00:00:00 Test Item Value Reference Range Interpretation Comments CULTURE, URINE (test SPECIMEN NUMBER: code = 88112) [id number] COMPREHENSIVE METABOLIC [id number] 00:00:00 Test Item Value Reference Range Interpretation Comments GLUCOSE (test code = 2217) 277 MG/DL BUN (test code = 2208) 26 MG/DL CREATININE (test code = 2214) 1.04 MG/DL eGFR AMER. (test code 77 ML/MIN/1.73 = 23790) eGFR NON- AMER. (test 66 ML/MIN/1.73 code = 43465) CALC BUN/CREAT (test code = 25 RATIO [...] code = 2219) 51 U/L COMPREHENSIVE METABOLIC [id number] 00:00:00 Test Item Value Reference Range Interpretation Comments GLUCOSE (test code = 2217) 277 MG/DL BUN (test code = 2208) 26 MG/DL CREATININE (test code = 2214) 1.04 MG/DL eGFR AMER. (test code 77 ML/MIN/1.73 = 20649) eGFR NON- AMER. (test 66 ML/MIN/1.73 code = 38987) CALC BUN/CREAT (test code = 25 RATIO [...] (test code = 2219) 51 U/L CULTURE, [id number] 00:00:00 Test Item Value Reference Range Interpretation Comments CULTURE, URINE (test SPECIMEN NUMBER: code = 34961) [id number] CULTURE, [id number] 00:00:00 Test Item Value Reference Range Interpretation Comments CULTURE, URINE (test SPECIMEN NUMBER: code = 47614) [id number] COMPREHENSIVE METABOLIC [id number] 00:00:00 Test Item Value Reference Range Interpretation Comments GLUCOSE (test code = 2217) 277 MG/DL BUN (test code = 2208) 26 MG/DL CREATININE (test code = 2214) 1.04 MG/DL eGFR AMER. (test code 77 ML/MIN/1.73 = 97326) eGFR NON- AMER. (test 66 ML/MIN/1.73 code = 00446) CALC BUN/CREAT (test code = 25 RATIO [...] code = 2219) 51 U/L COMPREHENSIVE METABOLIC [id number] 00:00:00 Test Item Value Reference Range Interpretation Comments GLUCOSE (test code = 2217) 277 MG/DL BUN (test code = 2208) 26 MG/DL CREATININE (test code = 2214) 1.04 MG/DL eGFR AMER. (test code 77 ML/MIN/1.73 = 25113) eGFR NON- AMER. (test 66 ML/MIN/1.73 code = 18642) CALC BUN/CREAT (test code = 25 RATIO [...] (test code = 2219) 51 U/L CULTURE, [id number] 00:00:00 Test Item Value Reference Range Interpretation Comments CULTURE, URINE (test SPECIMEN NUMBER: code = 32085) [id number] CULTURE, [id number] 00:00:00 Test Item Value Reference Range Interpretation Comments CULTURE, URINE (test SPECIMEN NUMBER: code = 20518) [id number] COMPREHENSIVE METABOLIC [id number] 00:00:00 Test Item Value Reference Range Interpretation Comments GLUCOSE (test code = 2217) 277 MG/DL BUN (test code = 2208) 26 MG/DL CREATININE (test code = 2214) 1.04 MG/DL eGFR AMER. (test code 77 ML/MIN/1.73 = 05995) eGFR NON- AMER. (test 66 ML/MIN/1.73 code = 37954) CALC BUN/CREAT (test code = 25 RATIO [...] code = 2219) 51 U/L COMPREHENSIVE METABOLIC [id number] 00:00:00 Test Item Value Reference Range Interpretation Comments GLUCOSE (test code = 2217) 277 MG/DL BUN (test code = 2208) 26 MG/DL CREATININE (test code = 2214) 1.04 MG/DL eGFR AMER. (test code 77 ML/MIN/1.73 = 93037) eGFR NON- AMER. (test 66 ML/MIN/1.73 code = 30198) CALC BUN/CREAT (test code = 25 RATIO [...] (test code = 2219) 51 U/L CULTURE, [id number] 00:00:00 Test Item Value Reference Range Interpretation Comments CULTURE, URINE (test SPECIMEN NUMBER: code = 61964) [id number] CULTURE, [id number] 00:00:00 Test Item Value Reference Range Interpretation Comments CULTURE, URINE (test SPECIMEN NUMBER: code = 20069) [id number] COMPREHENSIVE METABOLIC [id number] 00:00:00 Test Item Value Reference Range Interpretation Comments GLUCOSE (test code = 2217) 277 MG/DL BUN (test code = 2208) 26 MG/DL CREATININE (test code = 2214) 1.04 MG/DL eGFR AMER. (test code 77 ML/MIN/1.73 = 18222) eGFR NON- AMER. (test 66 ML/MIN/1.73 code = 00018) CALC BUN/CREAT (test code = 25 RATIO [...] code = 2219) 51 U/L COMPREHENSIVE METABOLIC [id number] 00:00:00 Test Item Value Reference Range Interpretation Comments GLUCOSE (test code = 2217) 277 MG/DL BUN (test code = 2208) 26 MG/DL CREATININE (test code = 2214) 1.04 MG/DL eGFR AMER. (test code 77 ML/MIN/1.73 = 87375) eGFR NON- AMER. (test 66 ML/MIN/1.73 code = 95383) CALC BUN/CREAT (test code = 25 RATIO 2235) SODIUM (test code = 2231) 137 MEQ/L POTASSIUM (test code = 2228) 4.3 MEQ/L CHLORIDE (test code = 2215) 96 MEQ/L CARBON DIOXIDE (test code = 24 MEQ/L 2205) CALCIUM (test code = 220) 10.8 MG/DL PROTEIN, TOTAL (test code = [...] (test code = 2219) 51 U/L CULTURE, [id number] 00:00:00 Test Item Value Reference Range Interpretation Comments CULTURE, URINE (test SPECIMEN NUMBER: code = 27699) [id number] CULTURE, [id number] 00:00:00 Test Item Value Reference Range Interpretation Comments CULTURE, URINE (test SPECIMEN NUMBER: code = 97110) [id number] COMPREHENSIVE METABOLIC [id number] 00:00:00 Test Item Value Reference Range Interpretation Comments GLUCOSE (test code = 2217) 277 MG/DL BUN (test code = 2208) 26 MG/DL CREATININE (test code = 2214) 1.04 MG/DL eGFR AMER. (test code 77 ML/MIN/1.73 = 68179) eGFR NON- AMER. (test 66 ML/MIN/1.73 code = 36294) CALC BUN/CREAT (test code = 25 RATIO [...] code = 2219) 51 U/L COMPREHENSIVE METABOLIC [id number] 00:00:00 Test Item Value Reference Range Interpretation Comments GLUCOSE (test code = 2217) 277 MG/DL BUN (test code = 2208) 26 MG/DL CREATININE (test code = 2214) 1.04 MG/DL eGFR AMER. (test code 77 ML/MIN/1.73 = 90236) eGFR NON- AMER. (test 66 ML/MIN/1.73 code = 89246) CALC BUN/CREAT (test code = 25 RATIO [...] (test code = 2219) 51 U/L CULTURE, [id number] 00:00:00 Test Item Value Reference Range Interpretation Comments CULTURE, URINE (test SPECIMEN NUMBER: code = 43551) [id number] CULTURE, [id number] 00:00:00 Test Item Value Reference Range Interpretation Comments CULTURE, URINE (test SPECIMEN NUMBER: code = 53921) [id number] COMPREHENSIVE METABOLIC [id number] 00:00:00 Test Item Value Reference Range Interpretation Comments GLUCOSE (test code = 2217) 277 MG/DL BUN (test code = 2208) 26 MG/DL CREATININE (test code = 2214) 1.04 MG/DL eGFR AMER. (test code 77 ML/MIN/1.73 = 16488) eGFR NON- AMER. (test 66 ML/MIN/1.73 code = 71776) CALC BUN/CREAT (test code = 25 RATIO [...] (test code = 2219) 51 U/L CULTURE, [id number] 00:00:00 Test Item Value Reference Range Interpretation Comments CULTURE, URINE (test SPECIMEN NUMBER: code = 43886) [id number] COMPREHENSIVE METABOLIC [id number] 00:00:00 Test Item Value Reference Range Interpretation Comments GLUCOSE (test code = 2217) 277 MG/DL BUN (test code = 2208) 26 MG/DL CREATININE (test code = 2214) 1.04 MG/DL eGFR AMER. (test code 77 ML/MIN/1.73 = 46652) eGFR NON- AMER. (test 66 ML/MIN/1.73 code = 66867) CALC BUN/CREAT (test code = 25 RATIO [...] code = 2219) 51 U/L COMPREHENSIVE METABOLIC [id number] 00:00:00 Test Item Value Reference Range Interpretation Comments GLUCOSE (test code = 2217) 277 MG/DL BUN (test code = 2208) 26 MG/DL CREATININE (test code = 2214) 1.04 MG/DL eGFR AMER. (test code 77 ML/MIN/1.73 = 06147) eGFR NON- AMER. (test 66 ML/MIN/1.73 code = 06819) CALC BUN/CREAT (test code = 25 RATIO [...] (test code = 2219) 51 U/L CULTURE, [id number] 00:00:00 Test Item Value Reference Range Interpretation Comments CULTURE, URINE (test SPECIMEN NUMBER: code = 37618) [id number] CULTURE, [id number] 00:00:00 Test Item Value Reference Range Interpretation Comments CULTURE, URINE (test SPECIMEN NUMBER: code = 34776) [id number] COMPREHENSIVE METABOLIC [id number] 00:00:00 Test Item Value Reference Range Interpretation Comments GLUCOSE (test code = 2217) 277 MG/DL BUN (test code = 2208) 26 MG/DL CREATININE (test code = 2214) 1.04 MG/DL eGFR AMER. (test code 77 ML/MIN/1.73 = 35200) eGFR NON- AMER. (test 66 ML/MIN/1.73 code = 57890) CALC BUN/CREAT (test code = 25 RATIO [...] code = 2219) 51 U/L COMPREHENSIVE METABOLIC [id number] 00:00:00 Test Item Value Reference Range Interpretation Comments GLUCOSE (test code = 2217) 277 MG/DL BUN (test code = 2208) 26 MG/DL CREATININE (test code = 2214) 1.04 MG/DL eGFR AMER. (test code 77 ML/MIN/1.73 = 06984) eGFR NON- AMER. (test 66 ML/MIN/1.73 code = 60142) CALC BUN/CREAT (test code = 25 RATIO [...] (test code = 2219) 51 U/L CULTURE, [id number] 00:00:00 Test Item Value Reference Range Interpretation Comments CULTURE, URINE (test SPECIMEN NUMBER: code = 03622) [id number] CULTURE, [id number] 00:00:00 Test Item Value Reference Range Interpretation Comments CULTURE, URINE (test SPECIMEN NUMBER: code = 04123) [id number] COMPREHENSIVE METABOLIC [id number] 00:00:00 Test Item Value Reference Range Interpretation Comments GLUCOSE (test code = 2217) 277 MG/DL BUN (test code = 2208) 26 MG/DL CREATININE (test code = 2214) 1.04 MG/DL eGFR AMER. (test code 77 ML/MIN/1.73 = 59346) eGFR NON- AMER. (test 66 ML/MIN/1.73 code = 80133) CALC BUN/CREAT (test code = 25 RATIO [...] code = 2219) 51 U/L COMPREHENSIVE METABOLIC [id number] 00:00:00 Test Item Value Reference Range Interpretation Comments GLUCOSE (test code = 2217) 277 MG/DL BUN (test code = 2208) 26 MG/DL CREATININE (test code = 2214) 1.04 MG/DL eGFR AMER. (test code 77 ML/MIN/1.73 = 39783) eGFR NON- AMER. (test 66 ML/MIN/1.73 code = 52496) CALC BUN/CREAT (test code = 25 RATIO [...] (test code = 2219) 51 U/L CULTURE, [id number] 00:00:00 Test Item Value Reference Range Interpretation Comments CULTURE, URINE (test SPECIMEN NUMBER: code = 25250) [id number] CULTURE, [id number] 00:00:00 Test Item Value Reference Range Interpretation Comments CULTURE, URINE (test SPECIMEN NUMBER: code = 13891) [id number] CBC W/AUTO [id number] 00:00:00 Test Item Value Reference Range Interpretation [...] NUCLEATED RBCS (test code = 0.00 K/UL 55636) CBC W/AUTO [id number] 00:00:00 Test Item Value Reference Range Interpretation [...] NUCLEATED RBCS (test code = 0.00 K/UL 10272) CBC W/AUTO [id number] 00:00:00 Test Item Value Reference Range Interpretation [...] NUCLEATED RBCS (test code = 0.00 K/UL 36380) CBC W/AUTO [id number] 00:00:00 Test Item Value Reference Range Interpretation [...] NUCLEATED RBCS (test code = 0.00 K/UL 93078) CBC W/AUTO [id number] 00:00:00 Test Item Value Reference Range Interpretation [...] NUCLEATED RBCS (test code = 0.00 K/UL 59436) CBC W/AUTO [id number] 00:00:00 Test Item Value Reference Range Interpretation [...] NUCLEATED RBCS (test code = 0.00 K/UL 55803) CBC W/AUTO [id number] 00:00:00 Test Item Value Reference Range Interpretation [...] NUCLEATED RBCS (test code = 0.00 K/UL 06323) CBC W/AUTO [id number] 00:00:00 Test Item Value Reference Range Interpretation [...] NUCLEATED RBCS (test code = 0.00 K/UL 51935) CBC W/AUTO [id number] 00:00:00 Test Item Value Reference Range Interpretation [...] NUCLEATED RBCS (test code = 0.00 K/UL 17594) CBC W/AUTO [id number] 00:00:00 Test Item Value Reference Range Interpretation [...] NUCLEATED RBCS (test code = 0.00 K/UL 81057) CBC W/AUTO [id number] 00:00:00 Test Item Value Reference Range Interpretation [...] NUCLEATED RBCS (test code = 0.00 K/UL 19480) CBC W/AUTO [id number] 00:00:00 Test Item Value Reference Range Interpretation [...] NUCLEATED RBCS (test code = 0.00 K/UL 42511) CBC W/AUTO [id number] 00:00:00 Test Item Value Reference Range Interpretation [...] NUCLEATED RBCS (test code = 0.00 K/UL 95515) CBC W/AUTO [id number] 00:00:00 Test Item Value Reference Range Interpretation [...] NUCLEATED RBCS (test code = 0.00 K/UL 84512) CBC W/AUTO [id number] 00:00:00 Test Item Value Reference Range Interpretation [...] NUCLEATED RBCS (test code = 0.00 K/UL 59138) CBC W/AUTO [id number] 00:00:00 Test Item Value Reference Range Interpretation [...] NUCLEATED RBCS (test code = 0.00 K/UL 06269) CBC W/AUTO [id number] 00:00:00 Test Item Value Reference Range Interpretation [...] NUCLEATED RBCS (test code = 0.00 K/UL 23276) CBC W/AUTO [id number] 00:00:00 Test Item Value Reference Range Interpretation [...] NUCLEATED RBCS (test code = 0.00 K/UL 36224) CBC W/AUTO [id number] 00:00:00 Test Item Value Reference Range Interpretation [...] NUCLEATED RBCS (test code = 0.00 K/UL 56426) CBC W/AUTO [id number] 00:00:00 Test Item Value Reference Range Interpretation [...] NUCLEATED RBCS (test code = 0.00 K/UL 47726) CBC W/AUTO [id number] 00:00:00 Test Item Value Reference Range Interpretation [...] NUCLEATED RBCS (test code = 0.00 K/UL 64271) CBC W/AUTO [id number] 00:00:00 Test Item Value Reference Range Interpretation [...] NUCLEATED RBCS (test code = 0.00 K/UL 88481) CBC W/AUTO [id number] 00:00:00 Test Item Value Reference Range Interpretation [...] NUCLEATED RBCS (test code = 0.00 K/UL 61729) CBC W/AUTO [id number] 00:00:00 Test Item Value Reference Range Interpretation [...] NUCLEATED RBCS (test code = 0.00 K/UL 63522) CBC W/AUTO [id number] 00:00:00 Test Item Value Reference Range Interpretation [...] NUCLEATED RBCS (test code = 0.00 K/UL 26695) CBC W/AUTO [id number] 00:00:00 Test Item Value Reference Range Interpretation [...] NUCLEATED RBCS (test code = 0.00 K/UL 77418) CBC W/AUTO [id number] 00:00:00 Test Item Value Reference Range Interpretation [...] NUCLEATED RBCS (test code = 0.00 K/UL 90478) CBC W/AUTO [id number] 00:00:00 Test Item Value Reference Range Interpretation [...] NUCLEATED RBCS (test code = 0.00 K/UL 06057) CBC W/AUTO [id number] 00:00:00 Test Item Value Reference Range Interpretation [...] NUCLEATED RBCS (test code = 0.00 K/UL 28747) CBC W/AUTO [id number] 00:00:00 Test Item Value Reference Range Interpretation [...] NUCLEATED RBCS (test code = 0.00 K/UL 31891) CBC W/AUTO [id number] 00:00:00 Test Item Value Reference Range Interpretation [...] NUCLEATED RBCS (test code = 0.00 K/UL 07817) CBC W/AUTO [id number] 00:00:00 Test Item Value Reference Range Interpretation [...] NUCLEATED RBCS (test code = 0.00 K/UL 34213) VAGINAL PATHOGENS DNA [id number] 00:00:00 Test Item Value Reference Range Interpretation Comments ANDIE SPECIES (test code = ) NEGATIVE G. VAGINALIS (test code = 41088) NEGATIVE T. VAGINALIS (test code = 98768) NEGATIVE VAGINAL PATHOGENS DNA [id number] 00:00:00 Test Item Value Reference Range Interpretation Comments ANDIE SPECIES (test code = ) NEGATIVE G. VAGINALIS (test code = 72618) NEGATIVE T. VAGINALIS (test code = 72480) NEGATIVE VAGINAL PATHOGENS DNA [id number] 00:00:00 Test Item Value Reference Range Interpretation Comments ANDIE SPECIES (test code = ) NEGATIVE G. VAGINALIS (test code = 43202) NEGATIVE T. VAGINALIS (test code = 58751) NEGATIVE VAGINAL PATHOGENS DNA [id number] 00:00:00 Test Item Value Reference Range Interpretation Comments ANDIE SPECIES (test code = ) NEGATIVE G. VAGINALIS (test code = 26620) NEGATIVE T. VAGINALIS (test code = 48522) NEGATIVE VAGINAL PATHOGENS DNA [id number] 00:00:00 Test Item Value Reference Range Interpretation Comments ANDIE SPECIES (test code = ) NEGATIVE G. VAGINALIS (test code = 50173) NEGATIVE T. VAGINALIS (test code = 33387) NEGATIVE VAGINAL PATHOGENS DNA [id number] 00:00:00 Test Item Value Reference Range Interpretation Comments ANDIE SPECIES (test code = ) NEGATIVE G. VAGINALIS (test code = 33236) NEGATIVE T. VAGINALIS (test code = 57427) NEGATIVE VAGINAL PATHOGENS DNA [id number] 00:00:00 Test Item Value Reference Range Interpretation Comments ANDIE SPECIES (test code = 76247) NEGATIVE G. VAGINALIS (test code = 68660) NEGATIVE T. VAGINALIS (test code = 03168) NEGATIVE VAGINAL PATHOGENS DNA [id number] 00:00:00 Test Item Value Reference Range Interpretation Comments ANDIE SPECIES (test code = 48346) NEGATIVE G. VAGINALIS (test code = 86279) NEGATIVE T. VAGINALIS (test code = 87503) NEGATIVE VAGINAL PATHOGENS DNA [id number] 00:00:00 Test Item Value Reference Range Interpretation Comments ANDIE SPECIES (test code = 89551) NEGATIVE G. VAGINALIS (test code = 64524) NEGATIVE T. VAGINALIS (test code = 57323) NEGATIVE VAGINAL PATHOGENS DNA [id number] 00:00:00 Test Item Value Reference Range Interpretation Comments ANDIE SPECIES (test code = 50387) NEGATIVE G. VAGINALIS (test code = 50713) NEGATIVE T. VAGINALIS (test code = 97402) NEGATIVE VAGINAL PATHOGENS DNA [id number] 00:00:00 Test Item Value Reference Range Interpretation Comments ANDIE SPECIES (test code = 57719) NEGATIVE G. VAGINALIS (test code = 48770) NEGATIVE T. VAGINALIS (test code = 11163) NEGATIVE VAGINAL PATHOGENS DNA [id number] 00:00:00 Test Item Value Reference Range Interpretation Comments ANDIE SPECIES (test code = 85681) NEGATIVE G. VAGINALIS (test code = 71369) NEGATIVE T. VAGINALIS (test code = 15346) NEGATIVE VAGINAL PATHOGENS DNA [id number] 00:00:00 Test Item Value Reference Range Interpretation Comments ANDIE SPECIES (test code = ) NEGATIVE G. VAGINALIS (test code = 23433) NEGATIVE T. VAGINALIS (test code = 13701) NEGATIVE VAGINAL PATHOGENS DNA [id number] 00:00:00 Test Item Value Reference Range Interpretation Comments ANDIE SPECIES (test code = ) NEGATIVE G. VAGINALIS (test code = 36023) NEGATIVE T. VAGINALIS (test code = 22484) NEGATIVE VAGINAL PATHOGENS DNA [id number] 00:00:00 Test Item Value Reference Range Interpretation Comments ANDIE SPECIES (test code = 96146) NEGATIVE G. VAGINALIS (test code = 13297) NEGATIVE T. VAGINALIS (test code = 74723) NEGATIVE VAGINAL PATHOGENS DNA [id number] 00:00:00 Test Item Value Reference Range Interpretation Comments ANDIE SPECIES (test code = 79394) NEGATIVE G. VAGINALIS (test code = 73950) NEGATIVE T. VAGINALIS (test code = 04256) NEGATIVE VAGINAL PATHOGENS DNA [id number] 00:00:00 Test Item Value Reference Range Interpretation Comments ANDIE SPECIES (test code = 62519) NEGATIVE G. VAGINALIS (test code = 46141) NEGATIVE T. VAGINALIS (test code = 05454) NEGATIVE VAGINAL PATHOGENS DNA [id number] 00:00:00 Test Item Value Reference Range Interpretation Comments ANDIE SPECIES (test code = 89039) NEGATIVE G. VAGINALIS (test code = 53041) NEGATIVE T. VAGINALIS (test code = 88183) NEGATIVE VAGINAL PATHOGENS DNA [id number] 00:00:00 Test Item Value Reference Range Interpretation Comments ANDIE SPECIES (test code = ) NEGATIVE G. VAGINALIS (test code = 13635) NEGATIVE T. VAGINALIS (test code = 91183) NEGATIVE VAGINAL PATHOGENS DNA [id number] 00:00:00 Test Item Value Reference Range Interpretation Comments ANDIE SPECIES (test code = 92958) NEGATIVE G. VAGINALIS (test code = 83358) NEGATIVE T. VAGINALIS (test code = 78911) NEGATIVE VAGINAL PATHOGENS DNA [id number] 00:00:00 Test Item Value Reference Range Interpretation Comments ANDIE SPECIES (test code = ) NEGATIVE G. VAGINALIS (test code = 21991) NEGATIVE T. VAGINALIS (test code = 56024) NEGATIVE HEMOGLOBIN [id number] 00:00:00 Test Item Value Reference Range Interpretation Comments HEMOGLOBIN A1c (test code = 45158) 11.4 % HEMOGLOBIN [id number] 00:00:00 Test Item Value Reference Range Interpretation Comments HEMOGLOBIN A1c (test code = 72464) 11.4 % HEMOGLOBIN [id number] 00:00:00 Test Item Value Reference Range Interpretation Comments HEMOGLOBIN A1c (test code = 54995) 11.4 % LIPID [id number] 00:00:00 Test Item Value Reference Range Interpretation Comments CHOLESTEROL (test code = 2210) 162 MG/DL TRIGLYCERIDES (test code = 2232) 387 MG/DL HDL CHOLESTEROL (test code = 2220) 30 MG/DL CALC LDL CHOL (test code = 2237) 80 MG/DL RISK RATIO LDL/HDL (test code = 2.67 RATIO 2238) LIPID [id number] 00:00:00 Test Item Value Reference Range Interpretation Comments CHOLESTEROL (test code = 2210) 162 MG/DL TRIGLYCERIDES (test code = 2232) 387 MG/DL HDL CHOLESTEROL (test code = 2220) 30 MG/DL CALC LDL CHOL (test code = 2237) 80 MG/DL RISK RATIO LDL/HDL (test code = 2.67 RATIO 2238) COMPREHENSIVE METABOLIC [id number] 00:00:00 Test Item Value Reference Range Interpretation Comments GLUCOSE (test code = 2217) 236 MG/DL BUN (test code = 2208) 14 MG/DL CREATININE (test code = 2214) 0.71 MG/DL eGFR AMER. (test code 122 ML/MIN/1.73 = 51838) eGFR NON- AMER. (test 105 ML/MIN/1.73 code = 88200) CALC BUN/CREAT (test code = 20 RATIO [...] code = 2219) 69 U/L COMPREHENSIVE METABOLIC [id number] 00:00:00 Test Item Value Reference Range Interpretation Comments GLUCOSE (test code = 2217) 236 MG/DL BUN (test code = 2208) 14 MG/DL CREATININE (test code = 2214) 0.71 MG/DL eGFR AMER. (test code 122 ML/MIN/1.73 = 77574) eGFR NON- AMER. (test 105 ML/MIN/1.73 code = 68332) CALC BUN/CREAT (test code = 20 RATIO [...] (test code = 2219) 69 U/L HEMOGLOBIN [id number] 00:00:00 Test Item Value Reference Range Interpretation Comments HEMOGLOBIN A1c (test code = 54534) 11.4 % HEMOGLOBIN [id number] 00:00:00 Test Item Value Reference Range Interpretation Comments HEMOGLOBIN A1c (test code = 71520) 11.4 % HEMOGLOBIN [id number] 00:00:00 Test Item Value Reference Range Interpretation Comments HEMOGLOBIN A1c (test code = 36435) 11.4 % LIPID [id number] 00:00:00 Test Item Value Reference Range Interpretation Comments CHOLESTEROL (test code = 2210) 162 MG/DL TRIGLYCERIDES (test code = 2232) 387 MG/DL HDL CHOLESTEROL (test code = 2220) 30 MG/DL CALC LDL CHOL (test code = 2237) 80 MG/DL RISK RATIO LDL/HDL (test code = 2.67 RATIO 2238) LIPID [id number] 00:00:00 Test Item Value Reference Range Interpretation Comments CHOLESTEROL (test code = 2210) 162 MG/DL TRIGLYCERIDES (test code = 2232) 387 MG/DL HDL CHOLESTEROL (test code = 2220) 30 MG/DL CALC LDL CHOL (test code = 2237) 80 MG/DL RISK RATIO LDL/HDL (test code = 2.67 RATIO 2238) COMPREHENSIVE METABOLIC [id number] 00:00:00 Test Item Value Reference Range Interpretation Comments GLUCOSE (test code = 2217) 236 MG/DL BUN (test code = 2208) 14 MG/DL CREATININE (test code = 2214) 0.71 MG/DL eGFR AMER. (test code 122 ML/MIN/1.73 = 92460) eGFR NON- AMER. (test 105 ML/MIN/1.73 code = 59490) CALC BUN/CREAT (test code = 20 RATIO [...] code = 2219) 69 U/L COMPREHENSIVE METABOLIC [id number] 00:00:00 Test Item Value Reference Range Interpretation Comments GLUCOSE (test code = 2217) 236 MG/DL BUN (test code = 2208) 14 MG/DL CREATININE (test code = 2214) 0.71 MG/DL eGFR AMER. (test code 122 ML/MIN/1.73 = 62608) eGFR NON- AMER. (test 105 ML/MIN/1.73 code = 49530) CALC BUN/CREAT (test code = 20 RATIO [...] BILIRUBIN, TOTAL (test code = 0.4 MG/DL 7) ALKALINE PHOSPHATASE (test 55 U/L code = 2204) AST (test code = 2218) 38 U/L ALT (test code = 2219) 69 U/L HEMOGLOBIN [id number] 00:00:00 Test Item Value Reference Range Interpretation Comments HEMOGLOBIN A1c (test code = 52907) 11.4 % HEMOGLOBIN [id number] 00:00:00 Test Item Value Reference Range Interpretation Comments HEMOGLOBIN A1c (test code = 40265) 11.4 % HEMOGLOBIN [id number] 00:00:00 Test Item Value Reference Range Interpretation Comments HEMOGLOBIN A1c (test code = 79732) 11.4 % LIPID [id number] 00:00:00 Test Item Value Reference Range Interpretation Comments CHOLESTEROL (test code = 2210) 162 MG/DL TRIGLYCERIDES (test code = 2232) 387 MG/DL HDL CHOLESTEROL (test code = 2220) 30 MG/DL CALC LDL CHOL (test code = 2237) 80 MG/DL RISK RATIO LDL/HDL (test code = 2.67 RATIO 2238) LIPID [id number] 00:00:00 Test Item Value Reference Range Interpretation Comments CHOLESTEROL (test code = 2210) 162 MG/DL TRIGLYCERIDES (test code = 2232) 387 MG/DL HDL CHOLESTEROL (test code = 2220) 30 MG/DL CALC LDL CHOL (test code = 2237) 80 MG/DL RISK RATIO LDL/HDL (test code = 2.67 RATIO 2238) COMPREHENSIVE METABOLIC [id number] 00:00:00 Test Item Value Reference Range Interpretation Comments GLUCOSE (test code = 2217) 236 MG/DL BUN (test code = 2208) 14 MG/DL CREATININE (test code = 2214) 0.71 MG/DL eGFR AMER. (test code 122 ML/MIN/1.73 = 70974) eGFR NON- AMER. (test 105 ML/MIN/1.73 code = 48443) CALC BUN/CREAT (test code = 20 RATIO [...] code = 2219) 69 U/L COMPREHENSIVE METABOLIC [id number] 00:00:00 Test Item Value Reference Range Interpretation Comments GLUCOSE (test code = 2217) 236 MG/DL BUN (test code = 2208) 14 MG/DL CREATININE (test code = 2214) 0.71 MG/DL eGFR AMER. (test code 122 ML/MIN/1.73 = 77388) eGFR NON- AMER. (test 105 ML/MIN/1.73 code = 23128) CALC BUN/CREAT (test code = 20 RATIO [...] (test code = 2219) 69 U/L HEMOGLOBIN [id number] 00:00:00 Test Item Value Reference Range Interpretation Comments HEMOGLOBIN A1c (test code = 78870) 11.4 % HEMOGLOBIN [id number] 00:00:00 Test Item Value Reference Range Interpretation Comments HEMOGLOBIN A1c (test code = 31700) 11.4 % HEMOGLOBIN [id number] 00:00:00 Test Item Value Reference Range Interpretation Comments HEMOGLOBIN A1c (test code = 59573) 11.4 % LIPID [id number] 00:00:00 Test Item Value Reference Range Interpretation Comments CHOLESTEROL (test code = 2210) 162 MG/DL TRIGLYCERIDES (test code = 2232) 387 MG/DL HDL CHOLESTEROL (test code = 2220) 30 MG/DL CALC LDL CHOL (test code = 2237) 80 MG/DL RISK RATIO LDL/HDL (test code = 2.67 RATIO 2238) LIPID [id number] 00:00:00 Test Item Value Reference Range Interpretation Comments CHOLESTEROL (test code = 2210) 162 MG/DL TRIGLYCERIDES (test code = 2232) 387 MG/DL HDL CHOLESTEROL (test code = 2220) 30 MG/DL CALC LDL CHOL (test code = 2237) 80 MG/DL RISK RATIO LDL/HDL (test code = 2.67 RATIO 2238) COMPREHENSIVE METABOLIC [id number] 00:00:00 Test Item Value Reference Range Interpretation Comments GLUCOSE (test code = 2217) 236 MG/DL BUN (test code = 2208) 14 MG/DL CREATININE (test code = 2214) 0.71 MG/DL eGFR AMER. (test code 122 ML/MIN/1.73 = 16486) eGFR NON- AMER. (test 105 ML/MIN/1.73 code = 76215) CALC BUN/CREAT (test code = 20 RATIO [...] code = 2219) 69 U/L COMPREHENSIVE METABOLIC [id number] 00:00:00 Test Item Value Reference Range Interpretation Comments GLUCOSE (test code = 2217) 236 MG/DL BUN (test code = 2208) 14 MG/DL CREATININE (test code = 2214) 0.71 MG/DL eGFR AMER. (test code 122 ML/MIN/1.73 = 66006) eGFR NON- AMER. (test 105 ML/MIN/1.73 code = 52536) CALC BUN/CREAT (test code = 20 RATIO [...] (test code = 2219) 69 U/L HEMOGLOBIN [id number] 00:00:00 Test Item Value Reference Range Interpretation Comments HEMOGLOBIN A1c (test code = 06324) 11.4 % HEMOGLOBIN [id number] 00:00:00 Test Item Value Reference Range Interpretation Comments HEMOGLOBIN A1c (test code = 04499) 11.4 % HEMOGLOBIN [id number] 00:00:00 Test Item Value Reference Range Interpretation Comments HEMOGLOBIN A1c (test code = 60641) 11.4 % LIPID [id number] 00:00:00 Test Item Value Reference Range Interpretation Comments CHOLESTEROL (test code = 2210) 162 MG/DL TRIGLYCERIDES (test code = 2232) 387 MG/DL HDL CHOLESTEROL (test code = 2220) 30 MG/DL CALC LDL CHOL (test code = 2237) 80 MG/DL RISK RATIO LDL/HDL (test code = 2.67 RATIO 2238) LIPID [id number] 00:00:00 Test Item Value Reference Range Interpretation Comments CHOLESTEROL (test code = 2210) 162 MG/DL TRIGLYCERIDES (test code = 2232) 387 MG/DL HDL CHOLESTEROL (test code = 2220) 30 MG/DL CALC LDL CHOL (test code = 2237) 80 MG/DL RISK RATIO LDL/HDL (test code = 2.67 RATIO 2238) COMPREHENSIVE METABOLIC [id number] 00:00:00 Test Item Value Reference Range Interpretation Comments GLUCOSE (test code = 2217) 236 MG/DL BUN (test code = 2208) 14 MG/DL CREATININE (test code = 2214) 0.71 MG/DL eGFR AMER. (test code 122 ML/MIN/1.73 = 72378) eGFR NON- AMER. (test 105 ML/MIN/1.73 code = 27983) CALC BUN/CREAT (test code = 20 RATIO [...] code = 2219) 69 U/L COMPREHENSIVE METABOLIC [id number] 00:00:00 Test Item Value Reference Range Interpretation Comments GLUCOSE (test code = 2217) 236 MG/DL BUN (test code = 2208) 14 MG/DL CREATININE (test code = 2214) 0.71 MG/DL eGFR AMER. (test code 122 ML/MIN/1.73 = 22866) eGFR NON- AMER. (test 105 ML/MIN/1.73 code = 85924) CALC BUN/CREAT (test code = 20 RATIO [...] (test code = 2219) 69 U/L HEMOGLOBIN [id number] 00:00:00 Test Item Value Reference Range Interpretation Comments HEMOGLOBIN A1c (test code = 50467) 11.4 % HEMOGLOBIN [id number] 00:00:00 Test Item Value Reference Range Interpretation Comments HEMOGLOBIN A1c (test code = 23184) 11.4 % HEMOGLOBIN [id number] 00:00:00 Test Item Value Reference Range Interpretation Comments HEMOGLOBIN A1c (test code = 57448) 11.4 % LIPID [id number] 00:00:00 Test Item Value Reference Range Interpretation Comments CHOLESTEROL (test code = 2210) 162 MG/DL TRIGLYCERIDES (test code = 2232) 387 MG/DL HDL CHOLESTEROL (test code = 2220) 30 MG/DL CALC LDL CHOL (test code = 2237) 80 MG/DL RISK RATIO LDL/HDL (test code = 2.67 RATIO 2238) LIPID [id number] 00:00:00 Test Item Value Reference Range Interpretation Comments CHOLESTEROL (test code = 2210) 162 MG/DL TRIGLYCERIDES (test code = 2232) 387 MG/DL HDL CHOLESTEROL (test code = 2220) 30 MG/DL CALC LDL CHOL (test code = 2237) 80 MG/DL RISK RATIO LDL/HDL (test code = 2.67 RATIO 2238) COMPREHENSIVE METABOLIC [id number] 00:00:00 Test Item Value Reference Range Interpretation Comments GLUCOSE (test code = 2217) 236 MG/DL BUN (test code = 2208) 14 MG/DL CREATININE (test code = 2214) 0.71 MG/DL eGFR AMER. (test code 122 ML/MIN/1.73 = 45290) eGFR NON- AMER. (test 105 ML/MIN/1.73 code = 19808) CALC BUN/CREAT (test code = 20 RATIO [...] code = 2219) 69 U/L COMPREHENSIVE METABOLIC [id number] 00:00:00 Test Item Value Reference Range Interpretation Comments GLUCOSE (test code = 2217) 236 MG/DL BUN (test code = 2208) 14 MG/DL CREATININE (test code = 2214) 0.71 MG/DL eGFR AMER. (test code 122 ML/MIN/1.73 = 44492) eGFR NON- AMER. (test 105 ML/MIN/1.73 code = 04485) CALC BUN/CREAT (test code = 20 RATIO [...] (test code = 2219) 69 U/L HEMOGLOBIN [id number] 00:00:00 Test Item Value Reference Range Interpretation Comments HEMOGLOBIN A1c (test code = 63080) 11.4 % HEMOGLOBIN [id number] 00:00:00 Test Item Value Reference Range Interpretation Comments HEMOGLOBIN A1c (test code = 99742) 11.4 % HEMOGLOBIN [id number] 00:00:00 Test Item Value Reference Range Interpretation Comments HEMOGLOBIN A1c (test code = 98284) 11.4 % LIPID [id number] 00:00:00 Test Item Value Reference Range Interpretation Comments CHOLESTEROL (test code = 2210) 162 MG/DL TRIGLYCERIDES (test code = 2232) 387 MG/DL HDL CHOLESTEROL (test code = 2220) 30 MG/DL CALC LDL CHOL (test code = 2237) 80 MG/DL RISK RATIO LDL/HDL (test code = 2.67 RATIO 2238) LIPID [id number] 00:00:00 Test Item Value Reference Range Interpretation Comments CHOLESTEROL (test code = 2210) 162 MG/DL TRIGLYCERIDES (test code = 2232) 387 MG/DL HDL CHOLESTEROL (test code = 2220) 30 MG/DL CALC LDL CHOL (test code = 2237) 80 MG/DL RISK RATIO LDL/HDL (test code = 2.67 RATIO 2238) HEMOGLOBIN [id number] 00:00:00 Test Item Value Reference Range Interpretation Comments HEMOGLOBIN A1c (test code = 00380) 11.4 % COMPREHENSIVE METABOLIC [id number] 00:00:00 Test Item Value Reference Range Interpretation Comments GLUCOSE (test code = 2217) 236 MG/DL BUN (test code = 2208) 14 MG/DL CREATININE (test code = 2214) 0.71 MG/DL eGFR AMER. (test code 122 ML/MIN/1.73 = 54960) eGFR NON- AMER. (test 105 ML/MIN/1.73 code = 37758) CALC BUN/CREAT (test code = 20 RATIO [...] code = 2219) 69 U/L COMPREHENSIVE METABOLIC [id number] 00:00:00 Test Item Value Reference Range Interpretation Comments GLUCOSE (test code = 2217) 236 MG/DL BUN (test code = 2208) 14 MG/DL CREATININE (test code = 2214) 0.71 MG/DL eGFR AMER. (test code 122 ML/MIN/1.73 = 23622) eGFR NON- AMER. (test 105 ML/MIN/1.73 code = 31106) CALC BUN/CREAT (test code = 20 RATIO [...] (test code = 2219) 69 U/L HEMOGLOBIN [id number] 00:00:00 Test Item Value Reference Range Interpretation Comments HEMOGLOBIN A1c (test code = 15314) 11.4 % LIPID [id number] 00:00:00 Test Item Value Reference Range Interpretation Comments CHOLESTEROL (test code = 2210) 162 MG/DL TRIGLYCERIDES (test code = 2232) 387 MG/DL HDL CHOLESTEROL (test code = 2220) 30 MG/DL CALC LDL CHOL (test code = 2237) 80 MG/DL RISK RATIO LDL/HDL (test code = 2.67 RATIO 2238) COMPREHENSIVE METABOLIC [id number] 00:00:00 Test Item Value Reference Range Interpretation Comments GLUCOSE (test code = 2217) 236 MG/DL BUN (test code = 2208) 14 MG/DL CREATININE (test code = 2214) 0.71 MG/DL eGFR AMER. (test code 122 ML/MIN/1.73 = 66796) eGFR NON- AMER. (test 105 ML/MIN/1.73 code = 27475) CALC BUN/CREAT (test code = 20 RATIO [...] (test code = 2219) 69 U/L HEMOGLOBIN [id number] 00:00:00 Test Item Value Reference Range Interpretation Comments HEMOGLOBIN A1c (test code = 52445) 11.4 % HEMOGLOBIN [id number] 00:00:00 Test Item Value Reference Range Interpretation Comments HEMOGLOBIN A1c (test code = 31849) 11.4 % HEMOGLOBIN [id number] 00:00:00 Test Item Value Reference Range Interpretation Comments HEMOGLOBIN A1c (test code = 89384) 11.4 % LIPID [id number] 00:00:00 Test Item Value Reference Range Interpretation Comments CHOLESTEROL (test code = 2210) 162 MG/DL TRIGLYCERIDES (test code = 2232) 387 MG/DL HDL CHOLESTEROL (test code = 2220) 30 MG/DL CALC LDL CHOL (test code = 2237) 80 MG/DL RISK RATIO LDL/HDL (test code = 2.67 RATIO 2238) LIPID [id number] 00:00:00 Test Item Value Reference Range Interpretation Comments CHOLESTEROL (test code = 2210) 162 MG/DL TRIGLYCERIDES (test code = 2232) 387 MG/DL HDL CHOLESTEROL (test code = 2220) 30 MG/DL CALC LDL CHOL (test code = 2237) 80 MG/DL RISK RATIO LDL/HDL (test code = 2.67 RATIO 2238) COMPREHENSIVE METABOLIC [id number] 00:00:00 Test Item Value Reference Range Interpretation Comments GLUCOSE (test code = 2217) 236 MG/DL BUN (test code = 2208) 14 MG/DL CREATININE (test code = 2214) 0.71 MG/DL eGFR AMER. (test code 122 ML/MIN/1.73 = 00146) eGFR NON- AMER. (test 105 ML/MIN/1.73 code = 10751) CALC BUN/CREAT (test code = 20 RATIO [...] code = 2219) 69 U/L COMPREHENSIVE METABOLIC [id number] 00:00:00 Test Item Value Reference Range Interpretation Comments GLUCOSE (test code = 2217) 236 MG/DL BUN (test code = 2208) 14 MG/DL CREATININE (test code = 2214) 0.71 MG/DL eGFR AMER. (test code 122 ML/MIN/1.73 = 46512) eGFR NON- AMER. (test 105 ML/MIN/1.73 code = 96005) CALC BUN/CREAT (test code = 20 RATIO [...] (test code = 2219) 69 U/L HEMOGLOBIN [id number] 00:00:00 Test Item Value Reference Range Interpretation Comments HEMOGLOBIN A1c (test code = 12421) 11.4 % HEMOGLOBIN [id number] 00:00:00 Test Item Value Reference Range Interpretation Comments HEMOGLOBIN A1c (test code = 95716) 11.4 % HEMOGLOBIN [id number] 00:00:00 Test Item Value Reference Range Interpretation Comments HEMOGLOBIN A1c (test code = 56257) 11.4 % LIPID [id number] 00:00:00 Test Item Value Reference Range Interpretation Comments CHOLESTEROL (test code = 2210) 162 MG/DL TRIGLYCERIDES (test code = 2232) 387 MG/DL HDL CHOLESTEROL (test code = 2220) 30 MG/DL CALC LDL CHOL (test code = 2237) 80 MG/DL RISK RATIO LDL/HDL (test code = 2.67 RATIO 2238) LIPID [id number] 00:00:00 Test Item Value Reference Range Interpretation Comments CHOLESTEROL (test code = 2210) 162 MG/DL TRIGLYCERIDES (test code = 2232) 387 MG/DL HDL CHOLESTEROL (test code = 2220) 30 MG/DL CALC LDL CHOL (test code = 2237) 80 MG/DL RISK RATIO LDL/HDL (test code = 2.67 RATIO 2238) COMPREHENSIVE METABOLIC [id number] 00:00:00 Test Item Value Reference Range Interpretation Comments GLUCOSE (test code = 2217) 236 MG/DL BUN (test code = 2208) 14 MG/DL CREATININE (test code = 2214) 0.71 MG/DL eGFR AMER. (test code 122 ML/MIN/1.73 = 94571) eGFR NON- AMER. (test 105 ML/MIN/1.73 code = 28871) CALC BUN/CREAT (test code = 20 RATIO [...] code = 2219) 69 U/L COMPREHENSIVE METABOLIC [id number] 00:00:00 Test Item Value Reference Range Interpretation Comments GLUCOSE (test code = 2217) 236 MG/DL BUN (test code = 2208) 14 MG/DL CREATININE (test code = 2214) 0.71 MG/DL eGFR AMER. (test code 122 ML/MIN/1.73 = 78232) eGFR NON- AMER. (test 105 ML/MIN/1.73 code = 20224) CALC BUN/CREAT (test code = 20 RATIO [...] (test code = 2219) 69 U/L HEMOGLOBIN [id number] 00:00:00 Test Item Value Reference Range Interpretation Comments HEMOGLOBIN A1c (test code = 45562) 11.4 % HEMOGLOBIN [id number] 00:00:00 Test Item Value Reference Range Interpretation Comments HEMOGLOBIN A1c (test code = 68644) 11.4 % HEMOGLOBIN [id number] 00:00:00 Test Item Value Reference Range Interpretation Comments HEMOGLOBIN A1c (test code = 90879) 11.4 % LIPID [id number] 00:00:00 Test Item Value Reference Range Interpretation Comments CHOLESTEROL (test code = 2210) 162 MG/DL TRIGLYCERIDES (test code = 2232) 387 MG/DL HDL CHOLESTEROL (test code = 2220) 30 MG/DL CALC LDL CHOL (test code = 2237) 80 MG/DL RISK RATIO LDL/HDL (test code = 2.67 RATIO 2238) LIPID [id number] 00:00:00 Test Item Value Reference Range Interpretation Comments CHOLESTEROL (test code = 2210) 162 MG/DL TRIGLYCERIDES (test code = 2232) 387 MG/DL HDL CHOLESTEROL (test code = 2220) 30 MG/DL CALC LDL CHOL (test code = 2237) 80 MG/DL RISK RATIO LDL/HDL (test code = 2.67 RATIO 2238) COMPREHENSIVE METABOLIC [id number] 00:00:00 Test Item Value Reference Range Interpretation Comments GLUCOSE (test code = 2217) 236 MG/DL BUN (test code = 2208) 14 MG/DL CREATININE (test code = 2214) 0.71 MG/DL eGFR AMER. (test code 122 ML/MIN/1.73 = 62225) eGFR NON- AMER. (test 105 ML/MIN/1.73 code = 16404) CALC BUN/CREAT (test code = 20 RATIO [...] code = 2219) 69 U/L COMPREHENSIVE METABOLIC [id number] 00:00:00 Test Item Value Reference Range Interpretation Comments GLUCOSE (test code = 2217) 236 MG/DL BUN (test code = 2208) 14 MG/DL CREATININE (test code = 2214) 0.71 MG/DL eGFR AMER. (test code 122 ML/MIN/1.73 = 86698) eGFR NON- AMER. (test 105 ML/MIN/1.73 code = 65420) CALC BUN/CREAT (test code = 20 RATIO [...] U/L - CT UP EXTREM W/O CONT [id number] 08:37[facility] 1980 Sex: F PatientName: MARGE FRANCO Unit No: [id number] EXAMS: CPT CODE: [id number] [place]TREM W/[place] [address] [place] SCAN LEFT WRIST WITH RECONSTRUCTION DIAGNOSIS: [...] with ACR practice standards and adherence to bicycle rental clerk's recommendations. INDICATION: LEFT WRIST SPRAIN, POSSIBLE SCAPHOID FRACTURE COMPARISON: None. COMMENT: Findings are as described above. at 0837 Reported and signed by: America Schuler MD CC: Bebeto Quiroga MD Technologist: KAVEH WYMAN MRI CTDI: DLP: Trnscrpt: 08/11/2020 (0837) [facility] NAME: MARGE FRANCO [address] [place] [address] PHYS: Bebeto Valiente MD : 1980 AGE: 40 SEX:F [place] [address] LOC: Y.RAD PHONE #: [phone] EXAM DATE: 08/08/2020 STATUS: DEP CLI FAX #: [phone] RAD #: D/C DT PAGE 1 Signed Report Patient Name: MARGE FRANCO Unit No: [id number] EXAMS: CPT CODE: [id number] [place] EXTREM W/[place] [address] (Continued) Orig PrintD/T: S: 08/11/2020 (0840) [facility] NAME: MARGE FRANCO [address] [place] [address] PHYS: Bebeto Valiente MD : 1980 AGE: 40 SEX: F [place] [address] LOC: Y.RAD PHONE #: [phone] EXAM DATE: 08/08/2020 STATUS: DEP CLI FAX #: [phone] RAD #: D/C DT PAGE 2 Signed ReportCULTURE, [id number] 00:00:00 Test Item Value Reference Range Interpretation Comments CULTURE, URINE (test SPECIMEN NUMBER: code = 37339) [id number] CULTURE, [id number] 00:00:00 Test Item Value Reference Range Interpretation Comments CULTURE, URINE (test SPECIMEN NUMBER: code = 33535) [id number] CULTURE, [id number] 00:00:00 Test Item Value Reference Range Interpretation Comments CULTURE, URINE (test SPECIMEN NUMBER: code = 98689) [id number] CULTURE, [id number] 00:00:00 Test Item Value Reference Range Interpretation Comments CULTURE, URINE (test SPECIMEN NUMBER: code = 47303) [id number] CULTURE, [id number] 00:00:00 Test Item Value Reference Range Interpretation Comments CULTURE, URINE (test SPECIMEN NUMBER: code = 99726) [id number] CULTURE, [id number] 00:00:00 Test Item Value Reference Range Interpretation Comments CULTURE, URINE (test SPECIMEN NUMBER: code = 82528) [id number] CULTURE, [id number] 00:00:00 Test Item Value Reference Range Interpretation Comments CULTURE, URINE (test SPECIMEN NUMBER: code = 11867) [id number] CULTURE, [id number] 00:00:00 Test Item Value Reference Range Interpretation Comments CULTURE, URINE (test SPECIMEN NUMBER: code = 96050) [id number] CULTURE, [id number] 00:00:00 Test Item Value Reference Range Interpretation Comments CULTURE, URINE (test SPECIMEN NUMBER: code = 49963) [id number] CULTURE, [id number] 00:00:00 Test Item Value Reference Range Interpretation Comments CULTURE, URINE (test SPECIMEN NUMBER: code = 49735) [id number] CULTURE, [id number] 00:00:00 Test Item Value Reference Range Interpretation Comments CULTURE, URINE (test SPECIMEN NUMBER: code = 18948) [id number] CULTURE, [id number] 00:00:00 Test Item Value Reference Range Interpretation Comments CULTURE, URINE (test SPECIMEN NUMBER: code = 52402) [id number] CULTURE, [id number] 00:00:00 Test Item Value Reference Range Interpretation Comments CULTURE, URINE (test SPECIMEN NUMBER: code = 10711) [id number] CULTURE, [id number] 00:00:00 Test Item Value Reference Range Interpretation Comments CULTURE, URINE (test SPECIMEN NUMBER: code = 70309) [id number] CULTURE, [id number] 00:00:00 Test Item Value Reference Range Interpretation Comments CULTURE, URINE (test SPECIMEN NUMBER: code = 46624) [id number] CULTURE, [id number] 00:00:00 Test Item Value Reference Range Interpretation Comments CULTURE, URINE (test SPECIMEN NUMBER: code = 89426) [id number] CULTURE, [id number] 00:00:00 Test Item Value Reference Range Interpretation Comments CULTURE, URINE (test SPECIMEN NUMBER: code = 88282) [id number] CULTURE, [id number] 00:00:00 Test Item Value Reference Range Interpretation Comments CULTURE, URINE (test SPECIMEN NUMBER: code = 30675) [id number] CULTURE, [id number] 00:00:00 Test Item Value Reference Range Interpretation Comments CULTURE, URINE (test SPECIMEN NUMBER: code = 79831) [id number] CULTURE, [id number] 00:00:00 Test Item Value Reference Range Interpretation Comments CULTURE, URINE (test SPECIMEN NUMBER: code = 32666) [id number] CULTURE, [id number] 00:00:00 Test Item Value Reference Range Interpretation Comments CULTURE, URINE (test SPECIMEN NUMBER: code = 48376) [id number] VAGINAL PATHOGENS DNA [id number] 00:00:00 Test Item Value Reference Range Interpretation Comments ANDIE SPECIES (test code = 92235) NEGATIVE G. VAGINALIS (test code = 99355) NEGATIVE T. VAGINALIS (test code = 29264) NEGATIVE VAGINAL PATHOGENS DNA [id number] 00:00:00 Test Item Value Reference Range Interpretation Comments ANDIE SPECIES (test code = 35935) NEGATIVE G. VAGINALIS (test code = 59796) NEGATIVE T. VAGINALIS (test code = 15979) NEGATIVE VAGINAL PATHOGENS DNA [id number] 00:00:00 Test Item Value Reference Range Interpretation Comments ANDIE SPECIES (test code = 03604) NEGATIVE G. VAGINALIS (test code = 59810) NEGATIVE T. VAGINALIS (test code = 73546) NEGATIVE VAGINAL PATHOGENS DNA [id number] 00:00:00 Test Item Value Reference Range Interpretation Comments ANDIE SPECIES (test code = 99486) NEGATIVE G. VAGINALIS (test code = 56725) NEGATIVE T. VAGINALIS (test code = 31262) NEGATIVE VAGINAL PATHOGENS DNA [id number] 00:00:00 Test Item Value Reference Range Interpretation Comments ANDIE SPECIES (test code = 39763) NEGATIVE G. VAGINALIS (test code = 31020) NEGATIVE T. VAGINALIS (test code = 08495) NEGATIVE VAGINAL PATHOGENS DNA [id number] 00:00:00 Test Item Value Reference Range Interpretation Comments ANDIE SPECIES (test code = 03955) NEGATIVE G. VAGINALIS (test code = 71827) NEGATIVE T. VAGINALIS (test code = 35844) NEGATIVE VAGINAL PATHOGENS DNA [id number] 00:00:00 Test Item Value Reference Range Interpretation Comments ANDIE SPECIES (test code = 21705) NEGATIVE G. VAGINALIS (test code = 92460) NEGATIVE T. VAGINALIS (test code = 22863) NEGATIVE VAGINAL PATHOGENS DNA [id number] 00:00:00 Test Item Value Reference Range Interpretation Comments ANDIE SPECIES (test code = 25797) NEGATIVE G. VAGINALIS (test code = 24565) NEGATIVE T. VAGINALIS (test code = 44919) NEGATIVE VAGINAL PATHOGENS DNA [id number] 00:00:00 Test Item Value Reference Range Interpretation Comments ANDIE SPECIES (test code = 66016) NEGATIVE G. VAGINALIS (test code = 07320) NEGATIVE T. VAGINALIS (test code = 64486) NEGATIVE VAGINAL PATHOGENS DNA [id number] 00:00:00 Test Item Value Reference Range Interpretation Comments ANDIE SPECIES (test code = 33510) NEGATIVE G. VAGINALIS (test code = 37783) NEGATIVE T. VAGINALIS (test code = 24725) NEGATIVE VAGINAL PATHOGENS DNA [id number] 00:00:00 Test Item Value Reference Range Interpretation Comments ANDIE SPECIES (test code = 74169) NEGATIVE G. VAGINALIS (test code = 08675) NEGATIVE T. VAGINALIS (test code = 34560) NEGATIVE VAGINAL PATHOGENS DNA [id number] 00:00:00 Test Item Value Reference Range Interpretation Comments ANDIE SPECIES (test code = 54292) NEGATIVE G. VAGINALIS (test code = 47199) NEGATIVE T. VAGINALIS (test code = 53604) NEGATIVE VAGINAL PATHOGENS DNA [id number] 00:00:00 Test Item Value Reference Range Interpretation Comments ANDIE SPECIES (test code = 38409) NEGATIVE G. VAGINALIS (test code = 23846) NEGATIVE T. VAGINALIS (test code = 05780) NEGATIVE VAGINAL PATHOGENS DNA [id number] 00:00:00 Test Item Value Reference Range Interpretation Comments ANDIE SPECIES (test code = 88524) NEGATIVE G. VAGINALIS (test code = 79603) NEGATIVE T. VAGINALIS (test code = 53341) NEGATIVE VAGINAL PATHOGENS DNA [id number] 00:00:00 Test Item Value Reference Range Interpretation Comments ANDIE SPECIES (test code = 32971) NEGATIVE G. VAGINALIS (test code = 65567) NEGATIVE T. VAGINALIS (test code = 29551) NEGATIVE VAGINAL PATHOGENS DNA [id number] 00:00:00 Test Item Value Reference Range Interpretation Comments ANDIE SPECIES (test code = 96522) NEGATIVE G. VAGINALIS (test code = 38551) NEGATIVE T. VAGINALIS (test code = 93193) NEGATIVE VAGINAL PATHOGENS DNA [id number] 00:00:00 Test Item Value Reference Range Interpretation Comments ANDIE SPECIES (test code = 16993) NEGATIVE G. VAGINALIS (test code = 76579) NEGATIVE T. VAGINALIS (test code = 90778) NEGATIVE VAGINAL PATHOGENS DNA [id number] 00:00:00 Test Item Value Reference Range Interpretation Comments ANDIE SPECIES (test code = 05695) NEGATIVE G. VAGINALIS (test code = 34530) NEGATIVE T. VAGINALIS (test code = 92566) NEGATIVE VAGINAL PATHOGENS DNA [id number] 00:00:00 Test Item Value Reference Range Interpretation Comments ANDIE SPECIES (test code = 29892) NEGATIVE G. VAGINALIS (test code = 18708) NEGATIVE T. VAGINALIS (test code = 48620) NEGATIVE VAGINAL PATHOGENS DNA [id number] 00:00:00 Test Item Value Reference Range Interpretation Comments ANDIE SPECIES (test code = 46775) NEGATIVE G. VAGINALIS (test code = 66804) NEGATIVE T. VAGINALIS (test code = 78892) NEGATIVE VAGINAL PATHOGENS DNA [id number] 00:00:00 Test Item Value Reference Range Interpretation Comments ANDIE SPECIES (test code = 04978) NEGATIVE G. VAGINALIS (test code = 57305) NEGATIVE T. VAGINALIS (test code = 17986) NEGATIVE - XR FOREARM 2 VIEWS [id number] 09:10:00 [facility] 1980 Sex: F PatientName: MARGE FRANCO Unit No: [id number] EXAMS: CPT CODE: [id number] XR [place] [address] [place] [address] Left forearm and wrist 4 views COMMENT: There is no evidence for fracture or subluxation. No focal bony lesions are seen. at 0910 Reported and signed by: Prasad Marina MD CC: Rafy Ferguson MD Technologist: Marie Johnson(R) Transcribed D/ (0910) [facility] NAME: MARGE FRANCO [address] [facility] [address] PHYS: HAMST. - Rafy Ferguson Wy : 1980 AGE: 40 SEX: F [place] [id number] LOC: TEOFILO PHONE #: [phone] EXAM DATE: 08/02/2020 STATUS: DEP ER FAX #: [phone] RAD #: D/C DT PAGE 1 Signed Report Patient Name: MARGE FRANCO Unit No: [id number] EXAMS: CPT CODE: [id number] XR [place] [address] [place] [address] (Continued) Orig Print D/T: S: 08/04/2020 (0914) [facility] NAME: MARGE FRANCO [address] [facility] PHYS: HAMST.Rell - Rafy Ferguson Wy : 1980 AGE: 40 SEX: F [place] [place] [address] LOC: [facility] PHONE #:[phone] EXAM DATE: 08/02/2020 STATUS: [facility] FAX #: [phone] RAD #: D/C DT PAGE 2 Signed ReportCULTURE, [id number] 00:00:00 Test Item Value Reference Range Interpretation Comments CULTURE, URINE (test SPECIMEN NUMBER: code = 79158) [id number] CULTURE, [id number] 00:00:00 Test Item Value Reference Range Interpretation Comments CULTURE, URINE (test SPECIMEN NUMBER: code = 41376) [id number] CULTURE, [id number] 00:00:00 Test Item Value Reference Range Interpretation Comments CULTURE, URINE (test SPECIMEN NUMBER: code = 21126) [id number] CULTURE, [id number] 00:00:00 Test Item Value Reference Range Interpretation Comments CULTURE, URINE (test SPECIMEN NUMBER: code = 07486) [id number] CULTURE, [id number] 00:00:00 Test Item Value Reference Range Interpretation Comments CULTURE, URINE (test SPECIMEN NUMBER: code = 45788) [id number] CULTURE, [id number] 00:00:00 Test Item Value Reference Range Interpretation Comments CULTURE, URINE (test SPECIMEN NUMBER: code = 84953) [id number] CULTURE, [id number] 00:00:00 Test Item Value Reference Range Interpretation Comments CULTURE, URINE (test SPECIMEN NUMBER: code = 48624) [id number] CULTURE, [id number] 00:00:00 Test Item Value Reference Range Interpretation Comments CULTURE, URINE (test SPECIMEN NUMBER: code = 41136) [id number] CULTURE, [id number] 00:00:00 Test Item Value Reference Range Interpretation Comments CULTURE, URINE (test SPECIMEN NUMBER: code = 83694) [id number] CULTURE, [id number] 00:00:00 Test Item Value Reference Range Interpretation Comments CULTURE, URINE (test SPECIMEN NUMBER: code = 50783) [id number] CULTURE, [id number] 00:00:00 Test Item Value Reference Range Interpretation Comments CULTURE, URINE (test SPECIMEN NUMBER: code = 76668) [id number] CULTURE, [id number] 00:00:00 Test Item Value Reference Range Interpretation Comments CULTURE, URINE (test SPECIMEN NUMBER: code = 40107) [id number] CULTURE, [id number] 00:00:00 Test Item Value Reference Range Interpretation Comments CULTURE, URINE (test SPECIMEN NUMBER: code = 69579) [id number] CULTURE, [id number] 00:00:00 Test Item Value Reference Range Interpretation Comments CULTURE, URINE (test SPECIMEN NUMBER: code = 98611) [id number] CULTURE, [id number] 00:00:00 Test Item Value Reference Range Interpretation Comments CULTURE, URINE (test SPECIMEN NUMBER: code = 46080) [id number] CULTURE, [id number] 00:00:00 Test Item Value Reference Range Interpretation Comments CULTURE, URINE (test SPECIMEN NUMBER: code = 96799) [id number] CULTURE, [id number] 00:00:00 Test Item Value Reference Range Interpretation Comments CULTURE, URINE (test SPECIMEN NUMBER: code = 39475) [id number] CULTURE, [id number] 00:00:00 Test Item Value Reference Range Interpretation Comments CULTURE, URINE (test SPECIMEN NUMBER: code = 34096) [id number] CULTURE, [id number] 00:00:00 Test Item Value Reference Range Interpretation Comments CULTURE, URINE (test SPECIMEN NUMBER: code = 88242) [id number] CULTURE, [id number] 00:00:00 Test Item Value Reference Range Interpretation Comments CULTURE, URINE (test SPECIMEN NUMBER: code = 59011) [id number] CULTURE, [id number] 00:00:00 Test Item Value Reference Range Interpretation Comments CULTURE, URINE (test SPECIMEN NUMBER: code = 85461) [id number] SARS-CoV-2 (COVID-19) by RT-PCR (HIGH RISK)2020-04-23 00:00:00 Test Item Value Reference Range Interpretation Comments SARS-CoV-2 INTERPRETATION Negative (test code = 25833) SOURCE (test code = 10736) Nasal_Swab_in_VTM__ UTM SARS-CoV-2 (COVID-19) by RT-PCR (HIGH RISK)2020-04-23 00:00:00 Test Item Value Reference Range Interpretation Comments SARS-CoV-2 INTERPRETATION Negative (test code = 01810) SOURCE (test code = 33463) Nasal_Swab_in_VTM__ UTM SARS-CoV-2 (COVID-19) by RT-PCR (HIGH RISK)2020-04-23 00:00:00 Test Item Value Reference Range Interpretation Comments SARS-CoV-2 INTERPRETATION Negative (test code = 74251) SOURCE (test code = 80263) Nasal_Swab_in_VTM__ UTM SARS-CoV-2 (COVID-19) by RT-PCR (HIGH RISK)2020-04-23 00:00:00 Test Item Value Reference Range Interpretation Comments SARS-CoV-2 INTERPRETATION Negative (test code = 49758) SOURCE (test code = 25283) Nasal_Swab_in_VTM__ UTM SARS-CoV-2 (COVID-19) by RT-PCR (HIGH RISK)2020-04-23 00:00:00 Test Item Value Reference Range Interpretation Comments SARS-CoV-2 INTERPRETATION Negative (test code = 20492) SOURCE (test code = 27518) Nasal_Swab_in_VTM__ UTM SARS-CoV-2 (COVID-19) by RT-PCR (HIGH RISK)2020-04-23 00:00:00 Test Item Value Reference Range Interpretation Comments SARS-CoV-2 INTERPRETATION Negative (test code = 81487) SOURCE (test code = 78425) Nasal_Swab_in_VTM__ UTM SARS-CoV-2 (COVID-19) by RT-PCR (HIGH RISK)2020-04-23 00:00:00 Test Item Value Reference Range Interpretation Comments SARS-CoV-2 INTERPRETATION Negative (test code = 48483) SOURCE (test code = 22418) Nasal_Swab_in_VTM__ UTM SARS-CoV-2 (COVID-19) by RT-PCR (HIGH RISK)2020-04-23 00:00:00 Test Item Value Reference Range Interpretation Comments SARS-CoV-2 INTERPRETATION Negative (test code = 09395) SOURCE (test code = 65551) Nasal_Swab_in_VTM__ UTM SARS-CoV-2 (COVID-19) by RT-PCR (HIGH RISK)2020-04-23 00:00:00 Test Item Value Reference Range Interpretation Comments SARS-CoV-2 INTERPRETATION Negative (test code = 41109) SOURCE (test code = 38474) Nasal_Swab_in_VTM__ UTM SARS-CoV-2 (COVID-19) by RT-PCR (HIGH RISK)2020-04-23 00:00:00 Test Item Value Reference Range Interpretation Comments SARS-CoV-2 INTERPRETATION Negative (test code = 10721) SOURCE (test code = 77813) Nasal_Swab_in_VTM__ UTM SARS-CoV-2 (COVID-19) by RT-PCR (HIGH RISK)2020-04-23 00:00:00 Test Item Value Reference Range Interpretation Comments SARS-CoV-2 INTERPRETATION Negative (test code = 70527) SOURCE (test code = 69181) Nasal_Swab_in_VTM__ UTM COMPREHENSIVE METABOLIC [id number] 00:00:00 Test Item Value Reference Range Interpretation Comments GLUCOSE (test code = 2217) 217 MG/DL BUN (test code = 2208) 13 MG/DL CREATININE (test code = 2214) 0.64 MG/DL eGFR AMER. (test code 128 ML/MIN/1.73 = 24459) eGFR NON- AMER. (test 110 ML/MIN/1.73 code = 28673) CALC BUN/CREAT (test code = 20 RATIO [...] (test code = 2219) 47 U/L CULTURE, [id number] 00:00:00 Test Item Value Reference Range Interpretation Comments CULTURE, URINE (test SPECIMEN NUMBER: code = 21935) [id number] COMPREHENSIVE METABOLIC [id number] 00:00:00 Test Item Value Reference Range Interpretation Comments GLUCOSE (test code = 2217) 217 MG/DL BUN (test code = 2208) 13 MG/DL CREATININE (test code = 2214) 0.64 MG/DL eGFR AMER. (test code 128 ML/MIN/1.73 = 24429) eGFR NON- AMER. (test 110 ML/MIN/1.73 code = 70528) CALC BUN/CREAT (test code = 20 RATIO [...] (test code = 2219) 47 U/L CULTURE, [id number] 00:00:00 Test Item Value Reference Range Interpretation Comments CULTURE, URINE (test SPECIMEN NUMBER: code = 02012) [id number] LIPID [id number] 00:00:00 Test Item Value Reference Range Interpretation Comments CHOLESTEROL (test code = 2210) 220 MG/DL TRIGLYCERIDES (test code = 2232) 873 MG/DL HDL CHOLESTEROL (test code = 30 MG/DL 2220) CALC LDL CHOL (test code = 2237) (NOTE) MG/DL RISK RATIO LDL/HDL (test code = (NOTE) RATIO 2238) LIPID [id number] 00:00:00 Test Item Value Reference Range Interpretation Comments CHOLESTEROL (test code = 2210) 220 MG/DL TRIGLYCERIDES (test code = 2232) 873 MG/DL HDL CHOLESTEROL (test code = 30 MG/DL 2220) CALC LDL CHOL (test code = 2237) (NOTE) MG/DL RISK RATIO LDL/HDL (test code = (NOTE) RATIO 2238) HEMOGLOBIN [id number] 00:00:00 Test Item Value Reference Range Interpretation Comments HEMOGLOBIN A1c (test code = 04155) 10.9 % HEMOGLOBIN [id number] 00:00:00 Test Item Value Reference Range Interpretation Comments HEMOGLOBIN A1c (test code = 00013) 10.9 % HEMOGLOBIN [id number] 00:00:00 Test Item Value Reference Range Interpretation Comments HEMOGLOBIN A1c (test code = 59767) 10.9 % COMPREHENSIVE METABOLIC [id number] 00:00:00 Test Item Value Reference Range Interpretation Comments GLUCOSE (test code = 2217) 217 MG/DL BUN (test code = 2208) 13 MG/DL CREATININE (test code = 2214) 0.64 MG/DL eGFR AMER. (test code 128 ML/MIN/1.73 = 39519) eGFR NON- AMER. (test 110 ML/MIN/1.73 code = 41210) CALC BUN/CREAT (test code = 20 RATIO [...] code = 2219) 47 U/L COMPREHENSIVE METABOLIC [id number] 00:00:00 Test Item Value Reference Range Interpretation Comments GLUCOSE (test code = 2217) 217 MG/DL BUN (test code = 2208) 13 MG/DL CREATININE (test code = 2214) 0.64 MG/DL eGFR AMER. (test code 128 ML/MIN/1.73 = 22205) eGFR NON- AMER. (test 110 ML/MIN/1.73 code = 13484) CALC BUN/CREAT (test code = 20 RATIO [...] (test code = 2219) 47 U/L CULTURE, [id number] 00:00:00 Test Item Value Reference Range Interpretation Comments CULTURE, URINE (test SPECIMEN NUMBER: code = 96993) [id number] CULTURE, [id number] 00:00:00 Test Item Value Reference Range Interpretation Comments CULTURE, URINE (test SPECIMEN NUMBER: code = 41457) [id number] LIPID [id number] 00:00:00 Test Item Value Reference Range Interpretation Comments CHOLESTEROL (test code = 2210) 220 MG/DL TRIGLYCERIDES (test code = 2232) 873 MG/DL HDL CHOLESTEROL (test code = 30 MG/DL 2220) CALC LDL CHOL (test code = 2237) (NOTE) MG/DL RISK RATIO LDL/HDL (test code = (NOTE) RATIO 2238) LIPID [id number] 00:00:00 Test Item Value Reference Range Interpretation Comments CHOLESTEROL (test code = 2210) 220 MG/DL TRIGLYCERIDES (test code = 2232) 873 MG/DL HDL CHOLESTEROL (test code = 30 MG/DL 2220) CALC LDL CHOL (test code = 2237) (NOTE) MG/DL RISK RATIO LDL/HDL (test code = (NOTE) RATIO 2238) HEMOGLOBIN [id number] 00:00:00 Test Item Value Reference Range Interpretation Comments HEMOGLOBIN A1c (test code = 80052) 10.9 % HEMOGLOBIN [id number] 00:00:00 Test Item Value Reference Range Interpretation Comments HEMOGLOBIN A1c (test code = 94454) 10.9 % HEMOGLOBIN [id number] 00:00:00 Test Item Value Reference Range Interpretation Comments HEMOGLOBIN A1c (test code = 41299) 10.9 % CULTURE, [id number] 00:00:00 Test Item Value Reference Range Interpretation Comments CULTURE, URINE (test SPECIMEN NUMBER: code = 01939) [id number] CULTURE, [id number] 00:00:00 Test Item Value Reference Range Interpretation Comments CULTURE, URINE (test SPECIMEN NUMBER: code = 35157) [id number] COMPREHENSIVE METABOLIC [id number] 00:00:00 Test Item Value Reference Range Interpretation Comments GLUCOSE (test code = 2217) 217 MG/DL BUN (test code = 2208) 13 MG/DL CREATININE (test code = 2214) 0.64 MG/DL eGFR AMER. (test code 128 ML/MIN/1.73 = 30378) eGFR NON- AMER. (test 110 ML/MIN/1.73 code = 29248) CALC BUN/CREAT (test code = 20 RATIO [...] code = 2219) 47 U/L COMPREHENSIVE METABOLIC [id number] 00:00:00 Test Item Value Reference Range Interpretation Comments GLUCOSE (test code = 2217) 217 MG/DL BUN (test code = 2208) 13 MG/DL CREATININE (test code = 2214) 0.64 MG/DL eGFR AMER. (test code 128 ML/MIN/1.73 = 78091) eGFR NON- AMER. (test 110 ML/MIN/1.73 code = 73612) CALC BUN/CREAT (test code = 20 RATIO [...] (test code = 2219) 47 U/L LIPID [id number] 00:00:00 Test Item Value Reference Range Interpretation Comments CHOLESTEROL (test code = 2210) 220 MG/DL TRIGLYCERIDES (test code = 2232) 873 MG/DL HDL CHOLESTEROL (test code = 30 MG/DL 2220) CALC LDL CHOL (test code = 2237) (NOTE) MG/DL RISK RATIO LDL/HDL (test code = (NOTE) RATIO 2238) LIPID [id number] 00:00:00 Test Item Value Reference Range Interpretation Comments CHOLESTEROL (test code = 2210) 220 MG/DL TRIGLYCERIDES (test code = 2232) 873 MG/DL HDL CHOLESTEROL (test code = 30 MG/DL 2220) CALC LDL CHOL (test code = 2237) (NOTE) MG/DL RISK RATIO LDL/HDL (test code = (NOTE) RATIO 2238) HEMOGLOBIN [id number] 00:00:00 Test Item Value Reference Range Interpretation Comments HEMOGLOBIN A1c (test code = 46782) 10.9 % HEMOGLOBIN [id number] 00:00:00 Test Item Value Reference Range Interpretation Comments HEMOGLOBIN A1c (test code = 78702) 10.9 % HEMOGLOBIN [id number] 00:00:00 Test Item Value Reference Range Interpretation Comments HEMOGLOBIN A1c (test code = 37866) 10.9 % CULTURE, [id number] 00:00:00 Test Item Value Reference Range Interpretation Comments CULTURE, URINE (test SPECIMEN NUMBER: code = 87846 [id number] COMPREHENSIVE METABOLIC [id number] 00:00:00 Test Item Value Reference Range Interpretation Comments GLUCOSE (test code = 2217) 217 MG/DL BUN (test code = 2208) 13 MG/DL CREATININE (test code = 2214) 0.64 MG/DL eGFR AMER. (test code 128 ML/MIN/1.73 = 10720) eGFR NON- AMER. (test 110 ML/MIN/1.73 code = 74160) CALC BUN/CREAT (test code = 20 RATIO [...] code = 2219) 47 U/L COMPREHENSIVE METABOLIC [id number] 00:00:00 Test Item Value Reference Range Interpretation Comments GLUCOSE (test code = 2217) 217 MG/DL BUN (test code = 2208) 13 MG/DL CREATININE (test code = 2214) 0.64 MG/DL eGFR AMER. (test code 128 ML/MIN/1.73 = 10652) eGFR NON- AMER. (test 110 ML/MIN/1.73 code = 16408) CALC BUN/CREAT (test code = 20 RATIO [...] (test code = 2219) 47 U/L CULTURE, [id number] 00:00:00 Test Item Value Reference Range Interpretation Comments CULTURE, URINE (test SPECIMEN NUMBER: code = 55772) [id number] LIPID [id number] 00:00:00 Test Item Value Reference Range Interpretation Comments CHOLESTEROL (test code = 2210) 220 MG/DL TRIGLYCERIDES (test code = 2232) 873 MG/DL HDL CHOLESTEROL (test code = 30 MG/DL 2220) CALC LDL CHOL (test code = 2237) (NOTE) MG/DL RISK RATIO LDL/HDL (test code = (NOTE) RATIO 2238) LIPID [id number] 00:00:00 Test Item Value Reference Range Interpretation Comments CHOLESTEROL (test code = 2210) 220 MG/DL TRIGLYCERIDES (test code = 2232) 873 MG/DL HDL CHOLESTEROL (test code = 30 MG/DL 2220) CALC LDL CHOL (test code = 2237) (NOTE) MG/DL RISK RATIO LDL/HDL (test code = (NOTE) RATIO 2238) HEMOGLOBIN [id number] 00:00:00 Test Item Value Reference Range Interpretation Comments HEMOGLOBIN A1c (test code = 59866) 10.9 % HEMOGLOBIN [id number] 00:00:00 Test Item Value Reference Range Interpretation Comments HEMOGLOBIN A1c (test code = 01959) 10.9 % HEMOGLOBIN [id number] 00:00:00 Test Item Value Reference Range Interpretation Comments HEMOGLOBIN A1c (test code = 35759) 10.9 % COMPREHENSIVE METABOLIC [id number] 00:00:00 Test Item Value Reference Range Interpretation Comments GLUCOSE (test code = 2217) 217 MG/DL BUN (test code = 2208) 13 MG/DL CREATININE (test code = 2214) 0.64 MG/DL eGFR AMER. (test code 128 ML/MIN/1.73 = 00621) eGFR NON- AMER. (test 110 ML/MIN/1.73 code = 40532) CALC BUN/CREAT (test code = 20 RATIO [...] (test code = 2219) 47 U/L CULTURE, [id number] 00:00:00 Test Item Value Reference Range Interpretation Comments CULTURE, URINE (test SPECIMEN NUMBER: code = 46087) [id number] CULTURE, [id number] 00:00:00 Test Item Value Reference Range Interpretation Comments CULTURE, URINE (test SPECIMEN NUMBER: code = 39171) [id number] COMPREHENSIVE METABOLIC [id number] 00:00:00 Test Item Value Reference Range Interpretation Comments GLUCOSE (test code = 2217) 217 MG/DL BUN (test code = 2208) 13 MG/DL CREATININE (test code = 2214) 0.64 MG/DL eGFR AMER. (test code 128 ML/MIN/1.73 = 11215) eGFR NON- AMER. (test 110 ML/MIN/1.73 code = 36890) CALC BUN/CREAT (test code = 20 RATIO [...] (test code = 2219) 47 U/L LIPID [id number] 00:00:00 Test Item Value Reference Range Interpretation Comments CHOLESTEROL (test code = 2210) 220 MG/DL TRIGLYCERIDES (test code = 2232) 873 MG/DL HDL CHOLESTEROL (test code = 30 MG/DL 2220) CALC LDL CHOL (test code = 2237) (NOTE) MG/DL RISK RATIO LDL/HDL (test code = (NOTE) RATIO 2238) LIPID [id number] 00:00:00 Test Item Value Reference Range Interpretation Comments CHOLESTEROL (test code = 2210) 220 MG/DL TRIGLYCERIDES (test code = 2232) 873 MG/DL HDL CHOLESTEROL (test code = 30 MG/DL 2220) CALC LDL CHOL (test code = 2237) (NOTE) MG/DL RISK RATIO LDL/HDL (test code = (NOTE) RATIO 2238) HEMOGLOBIN [id number] 00:00:00 Test Item Value Reference Range Interpretation Comments HEMOGLOBIN A1c (test code = 43542) 10.9 % HEMOGLOBIN [id number] 00:00:00 Test Item Value Reference Range Interpretation Comments HEMOGLOBIN A1c (test code = 66321) 10.9 % HEMOGLOBIN [id number] 00:00:00 Test Item Value Reference Range Interpretation Comments HEMOGLOBIN A1c (test code = 52994) 10.9 % COMPREHENSIVE METABOLIC [id number] 00:00:00 Test Item Value Reference Range Interpretation Comments GLUCOSE (test code = 2217) 217 MG/DL BUN (test code = 2208) 13 MG/DL CREATININE (test code = 2214) 0.64 MG/DL eGFR AMER. (test code 128 ML/MIN/1.73 = 06706) eGFR NON- AMER. (test 110 ML/MIN/1.73 code = 53753) CALC BUN/CREAT (test code = 20 RATIO [...] A/G RATIO (test code = 1.5 RATIO 223) BILIRUBIN, TOTAL (test code = 0.4 MG/DL 2206) ALKALINE PHOSPHATASE (test 63 U/L code = 2203) AST (test code = 2218) 36 U/L ALT (test code = 2219) 47 U/L CULTURE, [id number] 00:00:00 Test Item Value Reference Range Interpretation Comments CULTURE, URINE (test SPECIMEN NUMBER: code = 23671) [id number] CULTURE, [id number] 00:00:00 Test Item Value Reference Range Interpretation Comments CULTURE, URINE (test SPECIMEN NUMBER: code = 39162) [id number] COMPREHENSIVE METABOLIC [id number] 00:00:00 Test Item Value Reference Range Interpretation Comments GLUCOSE (test code = 2217) 217 MG/DL BUN (test code = 2208) 13 MG/DL CREATININE (test code = 2214) 0.64 MG/DL eGFR AMER. (test code 128 ML/MIN/1.73 = 82810) eGFR NON- AMER. (test 110 ML/MIN/1.73 code = 29999) CALC BUN/CREAT (test code = 20 RATIO [...] (test code = 2219) 47 U/L LIPID [id number] 00:00:00 Test Item Value Reference Range Interpretation Comments CHOLESTEROL (test code = 2210) 220 MG/DL TRIGLYCERIDES (test code = 2232) 873 MG/DL HDL CHOLESTEROL (test code = 30 MG/DL 2220) CALC LDL CHOL (test code = 2237) (NOTE) MG/DL RISK RATIO LDL/HDL (test code = (NOTE) RATIO 2238) LIPID [id number] 00:00:00 Test Item Value Reference Range Interpretation Comments CHOLESTEROL (test code = 2210) 220 MG/DL TRIGLYCERIDES (test code = 2232) 873 MG/DL HDL CHOLESTEROL (test code = 30 MG/DL 2220) CALC LDL CHOL (test code = 2237) (NOTE) MG/DL RISK RATIO LDL/HDL (test code = (NOTE) RATIO 2238) HEMOGLOBIN [id number] 00:00:00 Test Item Value Reference Range Interpretation Comments HEMOGLOBIN A1c (test code = 05366) 10.9 % HEMOGLOBIN [id number] 00:00:00 Test Item Value Reference Range Interpretation Comments HEMOGLOBIN A1c (test code = 88463) 10.9 % HEMOGLOBIN [id number] 00:00:00 Test Item Value Reference Range Interpretation Comments HEMOGLOBIN A1c (test code = 73761) 10.9 % COMPREHENSIVE METABOLIC [id number] 00:00:00 Test Item Value Reference Range Interpretation Comments GLUCOSE (test code = 2217) 217 MG/DL BUN (test code = 2208) 13 MG/DL CREATININE (test code = 2214) 0.64 MG/DL eGFR AMER. (test code 128 ML/MIN/1.73 = 09237) eGFR NON- AMER. (test 110 ML/MIN/1.73 code = 59770) CALC BUN/CREAT (test code = 20 RATIO [...] code = 2219) 47 U/L COMPREHENSIVE METABOLIC [id number] 00:00:00 Test Item Value Reference Range Interpretation Comments GLUCOSE (test code = 2217) 217 MG/DL BUN (test code = 2208) 13 MG/DL CREATININE (test code = 2214) 0.64 MG/DL eGFR AMER. (test code 128 ML/MIN/1.73 = 44881) eGFR NON- AMER. (test 110 ML/MIN/1.73 code = 16498) CALC BUN/CREAT (test code = 20 RATIO 2235) SODIUM (test code = 2231) 137 MEQ/L POTASSIUM (test code = 2228) 4.1 MEQ/L CHLORIDE (test code = 2215) 100 MEQ/L CARBON DIOXIDE (test code = 21 MEQ/L 2206) CALCIUM (test code = 2209) 10.0 MG/DL PROTEIN, TOTAL (test code = 7.7 G/DL 9) ALBUMIN (test code = 2201) 4.6 G/DL CALC GLOBULIN (test code = 3.1 G/DL 2240) CALC A/G RATIO (test code = 1.5 RATIO 2234) BILIRUBIN, TOTAL (test code = 0.4 MG/DL 2206) ALKALINE PHOSPHATASE (test 63 U/L code = 2204) AST (test code = 2218) 36 U/L ALT (test code = 2219) 47 U/L CULTURE, [id number] 00:00:00 Test Item Value Reference Range Interpretation Comments CULTURE, URINE (test SPECIMEN NUMBER: code = 15689 [id number] COMPREHENSIVE METABOLIC [id number] 00:00:00 Test Item Value Reference Range Interpretation Comments GLUCOSE (test code = 2217) 217 MG/DL BUN (test code = 2208) 13 MG/DL CREATININE (test code = 2214) 0.64 MG/DL eGFR AMER. (test code 128 ML/MIN/1.73 = 43468) eGFR NON- AMER. (test 110 ML/MIN/1.73 code = 21979) CALC BUN/CREAT (test code = 20 RATIO [...] (test code = 2219) 47 U/L CULTURE, [id number] 00:00:00 Test Item Value Reference Range Interpretation Comments CULTURE, URINE (test SPECIMEN NUMBER: code = 71314) [id number] LIPID [id number] 00:00:00 Test Item Value Reference Range Interpretation Comments CHOLESTEROL (test code = 2210) 220 MG/DL TRIGLYCERIDES (test code = 2232) 873 MG/DL HDL CHOLESTEROL (test code = 30 MG/DL 2220) CALC LDL CHOL (test code = 2237) (NOTE) MG/DL RISK RATIO LDL/HDL (test code = (NOTE) RATIO 2238) LIPID [id number] 00:00:00 Test Item Value Reference Range Interpretation Comments CHOLESTEROL (test code = 2210) 220 MG/DL TRIGLYCERIDES (test code = 2232) 873 MG/DL HDL CHOLESTEROL (test code = 30 MG/DL 2220) CALC LDL CHOL (test code = 2237) (NOTE) MG/DL RISK RATIO LDL/HDL (test code = (NOTE) RATIO 2238) HEMOGLOBIN [id number] 00:00:00 Test Item Value Reference Range Interpretation Comments HEMOGLOBIN A1c (test code = 36307) 10.9 % HEMOGLOBIN [id number] 00:00:00 Test Item Value Reference Range Interpretation Comments HEMOGLOBIN A1c (test code = 64491) 10.9 % HEMOGLOBIN [id number] 00:00:00 Test Item Value Reference Range Interpretation Comments HEMOGLOBIN A1c (test code = 49129) 10.9 % CULTURE, [id number] 00:00:00 Test Item Value Reference Range Interpretation Comments CULTURE, URINE (test SPECIMEN NUMBER: code = 79116) [id number] LIPID [id number] 00:00:00 Test Item Value Reference Range Interpretation Comments CHOLESTEROL (test code = 2210) 220 MG/DL TRIGLYCERIDES (test code = 2232) 873 MG/DL HDL CHOLESTEROL (test code = 30 MG/DL 2220) CALC LDL CHOL (test code = 2237) (NOTE) MG/DL RISK RATIO LDL/HDL (test code = (NOTE) RATIO 2238) HEMOGLOBIN [id number] 00:00:00 Test Item Value Reference Range Interpretation Comments HEMOGLOBIN A1c (test code = 50703) 10.9 % HEMOGLOBIN [id number] 00:00:00 Test Item Value Reference Range Interpretation Comments HEMOGLOBIN A1c (test code = 08965) 10.9 % CULTURE, [id number] 00:00:00 Test Item Value Reference Range Interpretation Comments CULTURE, URINE (test SPECIMEN NUMBER: code = 14638) [id number] COMPREHENSIVE METABOLIC [id number] 00:00:00 Test Item Value Reference Range Interpretation Comments GLUCOSE (test code = 2217) 217 MG/DL BUN (test code = 2208) 13 MG/DL CREATININE (test code = 2214) 0.64 MG/DL eGFR AMER. (test code 128 ML/MIN/1.73 = 50585) eGFR NON- AMER. (test 110 ML/MIN/1.73 code = 61656) CALC BUN/CREAT (test code = 20 RATIO [...] (test code = 2219) 47 U/L CULTURE, [id number] 00:00:00 Test Item Value Reference Range Interpretation Comments CULTURE, URINE (test SPECIMEN NUMBER: code = 65029) [id number] COMPREHENSIVE METABOLIC [id number] 00:00:00 Test Item Value Reference Range Interpretation Comments GLUCOSE (test code = 2217) 217 MG/DL BUN (test code = 2208) 13 MG/DL CREATININE (test code = 2214) 0.64 MG/DL eGFR AMER. (test code 128 ML/MIN/1.73 = 17936) eGFR NON- AMER. (test 110 ML/MIN/1.73 code = 31508) CALC BUN/CREAT (test code = 20 RATIO [...] (test code = 2219) 47 U/L LIPID [id number] 00:00:00 Test Item Value Reference Range Interpretation Comments CHOLESTEROL (test code = 2210) 220 MG/DL TRIGLYCERIDES (test code = 2232) 873 MG/DL HDL CHOLESTEROL (test code = 30 MG/DL 0) CALC LDL CHOL (test code = 2237) (NOTE) MG/DL RISK RATIO LDL/HDL (test code = (NOTE) RATIO 2238) LIPID [id number] 00:00:00 Test Item Value Reference Range Interpretation Comments CHOLESTEROL (test code = 2210) 220 MG/DL TRIGLYCERIDES (test code = 2232) 873 MG/DL HDL CHOLESTEROL (test code = 30 MG/DL 2219) CALC LDL CHOL (test code = 2237) (NOTE) MG/DL RISK RATIO LDL/HDL (test code = (NOTE) RATIO 2238) HEMOGLOBIN [id number] 00:00:00 Test Item Value Reference Range Interpretation Comments HEMOGLOBIN A1c (test code = 69638) 10.9 % HEMOGLOBIN [id number] 00:00:00 Test Item Value Reference Range Interpretation Comments HEMOGLOBIN A1c (test code = 02958) 10.9 % HEMOGLOBIN [id number] 00:00:00 Test Item Value Reference Range Interpretation Comments HEMOGLOBIN A1c (test code = 05899) 10.9 % CULTURE, [id number] 00:00:00 Test Item Value Reference Range Interpretation Comments CULTURE, URINE (test SPECIMEN NUMBER: code = 13032) [id number] COMPREHENSIVE METABOLIC [id number] 00:00:00 Test Item Value Reference Range Interpretation Comments GLUCOSE (test code = 2217) 217 MG/DL BUN (test code = 8) 13 MG/DL CREATININE (test code = 2214) 0.64 MG/DL eGFR AMER. (test code 128 ML/MIN/1.73 = 18056) eGFR NON- AMER. (test 110 ML/MIN/1.73 code = 39340) CALC BUN/CREAT (test code = 20 RATIO [...] (test code = 2219) 47 U/L CULTURE, [id number] 00:00:00 Test Item Value Reference Range Interpretation Comments CULTURE, URINE (test SPECIMEN NUMBER: code = 81852 [id number] COMPREHENSIVE METABOLIC [id number] 00:00:00 Test Item Value Reference Range Interpretation Comments GLUCOSE (test code = 2217) 217 MG/DL BUN (test code = 2208) 13 MG/DL CREATININE (test code = 2214) 0.64 MG/DL eGFR AMER. (test code 128 ML/MIN/1.73 = 88074) eGFR NON- AMER. (test 110 ML/MIN/1.73 code = 75494) CALC BUN/CREAT (test code = 20 RATIO [...] (test code = 2219) 47 U/L LIPID [id number] 00:00:00 Test Item Value Reference Range Interpretation Comments CHOLESTEROL (test code = 2210) 220 MG/DL TRIGLYCERIDES (test code = 2232) 873 MG/DL HDL CHOLESTEROL (test code = 30 MG/DL 2220) CALC LDL CHOL (test code = 2237) (NOTE) MG/DL RISK RATIO LDL/HDL (test code = (NOTE) RATIO 2238) LIPID [id number] 00:00:00 Test Item Value Reference Range Interpretation Comments CHOLESTEROL (test code = 2210) 220 MG/DL TRIGLYCERIDES (test code = 2232) 873 MG/DL HDL CHOLESTEROL (test code = 30 MG/DL 2220) CALC LDL CHOL (test code = 2237) (NOTE) MG/DL RISK RATIO LDL/HDL (test code = (NOTE) RATIO 2238) HEMOGLOBIN [id number] 00:00:00 Test Item Value Reference Range Interpretation Comments HEMOGLOBIN A1c (test code = 27016) 10.9 % HEMOGLOBIN [id number] 00:00:00 Test Item Value Reference Range Interpretation Comments HEMOGLOBIN A1c (test code = 04514) 10.9 % HEMOGLOBIN [id number] 00:00:00 Test Item Value Reference Range Interpretation Comments HEMOGLOBIN A1c (test code = 04756) 10.9 % COMPREHENSIVE METABOLIC [id number] 00:00:00 Test Item Value Reference Range Interpretation Comments GLUCOSE (test code = 2217) 217 MG/DL BUN (test code = 2208) 13 MG/DL CREATININE (test code = 2214) 0.64 MG/DL eGFR AMER. (test code 128 ML/MIN/1.73 = 06690) eGFR NON- AMER. (test 110 ML/MIN/1.73 code = 78006) CALC BUN/CREAT (test code = 20 RATIO [...] (test code = 2219) 47 U/L CULTURE, [id number] 00:00:00 Test Item Value Reference Range Interpretation Comments CULTURE, URINE (test SPECIMEN NUMBER: code = 34491) [id number] COMPREHENSIVE METABOLIC [id number] 00:00:00 Test Item Value Reference Range Interpretation Comments GLUCOSE (test code = 2217) 217 MG/DL BUN (test code = 2208) 13 MG/DL CREATININE (test code = 2214) 0.64 MG/DL eGFR AMER. (test code 128 ML/MIN/1.73 = 64833) eGFR NON- AMER. (test 110 ML/MIN/1.73 code = 23330) CALC BUN/CREAT (test code = 20 RATIO [...] (test code = 2219) 47 U/L CULTURE, [id number] 00:00:00 Test Item Value Reference Range Interpretation Comments CULTURE, URINE (test SPECIMEN NUMBER: code = 24532) [id number] LIPID [id number] 00:00:00 Test Item Value Reference Range Interpretation Comments CHOLESTEROL (test code = 2210) 220 MG/DL TRIGLYCERIDES (test code = 2232) 873 MG/DL HDL CHOLESTEROL (test code = 30 MG/DL 2220) CALC LDL CHOL (test code = 2237) (NOTE) MG/DL RISK RATIO LDL/HDL (test code = (NOTE) RATIO 2238) LIPID [id number] 00:00:00 Test Item Value Reference Range Interpretation Comments CHOLESTEROL (test code = 2210) 220 MG/DL TRIGLYCERIDES (test code = 2232) 873 MG/DL HDL CHOLESTEROL (test code = 30 MG/DL 2220) CALC LDL CHOL (test code = 2237) (NOTE) MG/DL RISK RATIO LDL/HDL (test code = (NOTE) RATIO 2238) HEMOGLOBIN [id number] 00:00:00 Test Item Value Reference Range Interpretation Comments HEMOGLOBIN A1c (test code = 58144) 10.9 % HEMOGLOBIN [id number] 00:00:00 Test Item Value Reference Range Interpretation Comments HEMOGLOBIN A1c (test code = 99004) 10.9 % HEMOGLOBIN [id number] 00:00:00 Test Item Value Reference Range Interpretation Comments HEMOGLOBIN A1c (test code = 41581) 10.9 % - XR ANKLE 3 + V [id number] 07:19:00 Patient Name: Marge Franco Unit No: [id number] EXAMS: CPT CODE: [id number] XR ANKLE 3 + [place] 20662 Right ankle 3 views COMMENT: There is no evidence for fracture. There is no evidence for widening of the ankle mortise. There is no evidence for a joint effusion or loose body. A small plantar calcaneal spur is noted. Right foot 2 views COMMENT: There is no evidence for fracture or subluxation. No focal bony lesions are seen. at 071 9 Reported and signed by: Prasad Marina MD CC: Barry Hodge DO Technologist: SAMANTHA MORALES RT(R) Transcribed D/ (07) tCOLTONL [facility] NAME: Marge Franco[address] [facility] PHYS: Barry Cardenas DO : 1980 AGE: 40 SEX: F [place] [address] A CCT NO: [id number] LOC: TEOFILO PHONE #: [phone] EXAM DATE: 02/13/2020 STATUS: DEP ER FAX #: [phone] RAD #: D/C DT PAGE 1 Signed Report Patient Name: Marge Franco Unit No: [id number] EXAMS: CPT CODE: [id number] XR ANKLE 3 + V RT 07703 (Continued) Orig Print D/T: S: 02/14/2020 (0722) [facility] NAME: Marge Franco [address] [facility] PHYS: Barry Cardenas DO : 1980 AGE: 40 SEX: F [place] [address] LOC: TEOFILO PHONE #: [phone] EXAM DATE: 02/13/2020 STATUS: DEP ER FAX #: [phone] RAD #: D/C DT PAGE 2 Signed Report- XR FOOT 2 VIEWS [id number] 07:19:00 Patient Name: Marge Franco Unit No: [id number] EXAMS: CPT CODE: [id number] XR FOOT [address] [place] [address] Right ankle 3 views COMMENT: There is [...] Technologist: SAMANTHA MORALES, RT(R) Transcribed D/ (718) tRADU [facility] NAME: Marge Franco [address] [place] [address] PHYS: Barry Cardenas DO : 1980 AGE: 40 SEX: F [place] [address] LOC: TEOFILO PHONE #: [phone] EXAM DATE: 02/13/2020 STATUS: DEP ER FAX #: [phone] RAD #: D/C DT PAGE 1 Signed Report Patient Name: Marge Franco Unit No: [id number] EXAMS: CPT CODE: [id number] XR FOOT [address] [place] [address] (Continued) Orig Print D/T: S: 02/14/2020 (721) [facility] NAME: Marge Franco [address] [place] [address] PHYS: Barry Cardenas DO : 1980 AGE: 40 SEX: F [place] [address] LOC: TEOFILO PHONE #: [phone] EXAM DATE: 02/13/2020 STATUS: DEP ER FAX #: [phone] RAD #: D/C DT PAGE 2 Signed [id number] 11:17:00 Test Item Value Reference Range Interpretation Comments GLUBED (test code = GLUBED) 119 mg/dL 60-125 N [id number] 08:15:00 Test Item Value Reference Range Interpretation Comments GLUBED (test code = GLUBED) 117 mg/dL 60-125 N Novel Coronavirus 2019 [id number] 17:12:00 Test Item Value Reference Range Interpretation Comments Novel Coronavirus 2019 Inhouse (test Negative Negative code = COVNONPUI) Novel Coronavirus 2019 [id number] 17:12:00 Test Item Value Reference Range Interpretation Comments Novel Coronavirus 2019 Inhouse (test Negative Negative code = COVNONPUI) CBC W/AUTO [id number] 20:19:00 Test Item Value Reference Range Interpretation [...] 0-0 N code = NRBC) BASIC METABOLIC [id number] 19:54:00 Test Item Value Reference Range Interpretation [...] RATE (test code = GFR) mL/mi n/1.73 [id number] Range:Healthy A dults >90 mL/min/1.73 m2 For Chronic Kid stoney Disease: Stage II Mild Decrease i n GFR 60-90 Stage III Moderate Decrea se in GFR 30-59 Stage IV Severe Decrease in GFR 15-29 Stage V Kidney Failure <15 CREATININE (test code 0.83 mg/dL 0.55-1.30 N = CREAT) CALCIUM (test code = 9.6 mg/dL 8.2-10.1 N CA) - CT LOWER EXTRM W/O C [id number] 14:57:00 Patient Name: MARGE FRANCO Unit No: [id number] EXAMS: CPT CODE: [id number] CT LOWER EXTRM W/[place] [address] [place] SCAN RIGHT ANKLE WITH RECONSTRUCTION DIAGNOSIS: 1. There the posterior tibial tendon is thickened and indistinct from the level of the tip of the medial malleolus to its distal insertion into the medial navicular. The distalmost balaji insertional posterior tibial tendon is obscuredby extensive soft tissue inflammation. This spectrum of [...] with ACR practice standards and adherence to bicycle rental clerk's recommendations. INDICATION: RIGHT ANKLE PAIN COMPARISON: None.COMMENT: Findings are as described above. at 2813 Reported and signed by: America Schuler MD CC: Elbert Wilson MD Technologist: Shaan Levine ns,RT(R) CTDI: DLP: Trnscrpt: 01/04/2020 (6912) t.SDR.GVG [facility] NAME: MARGE FRANCO[address] PHYS: Elbert Rodrigues MD : 1980 AGE: 39 SEX: F [place] [address] LOC: Y.RAD PHONE #: [phone] EXAM DATE: 01/04/2020 STATUS: REG CLI FAX #: [phone] RAD #: D/C DT PAGE 1 Signed Report Patient Name: MARGE FRANCO Unit No: [id number] EXAMS: CPT CODE: [id number] CT LOWER EXTRM W/[place] [address] (Continued) Orig Print D/T: S: 01/04/2020 (1500) [facility] NAME: MARGE FRANOCLDE [address] [place] [address] PHYS: Elbert Rodrigues MD : 1980 AGE: 39 SEX: F [place] [address] LOC: Y.RAD PHONE #: [phone] EXAM DATE: 01/04/2020 STATUS: REG CLI FAX #: [phone] RAD #:D/C DT PAGE 2 Signed ReportCULTURE, URINE 2019-12-22 00:00:00 Test Item Value Reference Range Interpretation Comments CULTURE, URINE (test SPECIMEN NUMBER: code = 89462) [id number] CULTURE, [id number] 00:00:00 Test Item Value Reference Range Interpretation Comments CULTURE, URINE (test SPECIMEN NUMBER: code = 60993) [id number] CULTURE, [id number] 00:00:00 Test Item Value Reference Range Interpretation Comments CULTURE, URINE (test SPECIMEN NUMBER: code = 31541) [id number] CULTURE, [id number] 00:00:00 Test Item Value Reference Range Interpretation Comments CULTURE, URINE (test SPECIMEN NUMBER: code = 99018) [id number] CULTURE, [id number] 00:00:00 Test Item Value Reference Range Interpretation Comments CULTURE, URINE (test SPECIMEN NUMBER: code = 33504) [id number] CULTURE, [id number] 00:00:00 Test Item Value Reference Range Interpretation Comments CULTURE, URINE (test SPECIMEN NUMBER: code = 27641) [id number] CULTURE, [id number] 00:00:00 Test Item Value Reference Range Interpretation Comments CULTURE, URINE (test SPECIMEN NUMBER: code = 65420) [id number] CULTURE, [id number] 00:00:00 Test Item Value Reference Range Interpretation Comments CULTURE, URINE (test SPECIMEN NUMBER: code = 49236) [id number] CULTURE, [id number] 00:00:00 Test Item Value Reference Range Interpretation Comments CULTURE, URINE (test SPECIMEN NUMBER: code = 22961) [id number] CULTURE, [id number] 00:00:00 Test Item Value Reference Range Interpretation Comments CULTURE, URINE (test SPECIMEN NUMBER: code = 82087) [id number] CULTURE, [id number] 00:00:00 Test Item Value Reference Range Interpretation Comments CULTURE, URINE (test SPECIMEN NUMBER: code = 38959) [id number] CULTURE, [id number] 00:00:00 Test Item Value Reference Range Interpretation Comments CULTURE, URINE (test SPECIMEN NUMBER: code = 26077) [id number] CULTURE, [id number] 00:00:00 Test Item Value Reference Range Interpretation Comments CULTURE, URINE (test SPECIMEN NUMBER: code = 42251) [id number] CULTURE, [id number] 00:00:00 Test Item Value Reference Range Interpretation Comments CULTURE, URINE (test SPECIMEN NUMBER: code = 47660) [id number] CULTURE, [id number] 00:00:00 Test Item Value Reference Range Interpretation Comments CULTURE, URINE (test SPECIMEN NUMBER: code = 50430) [id number] CULTURE, [id number] 00:00:00 Test Item Value Reference Range Interpretation Comments CULTURE, URINE (test SPECIMEN NUMBER: code = 12218) [id number] CULTURE, [id number] 00:00:00 Test Item Value Reference Range Interpretation Comments CULTURE, URINE (test SPECIMEN NUMBER: code = 16847) [id number] CULTURE, [id number] 00:00:00 Test Item Value Reference Range Interpretation Comments CULTURE, URINE (test SPECIMEN NUMBER: code = 64416) [id number] CULTURE, [id number] 00:00:00 Test Item Value Reference Range Interpretation Comments CULTURE, URINE (test SPECIMEN NUMBER: code = 79285) [id number] CULTURE, [id number] 00:00:00 Test Item Value Reference Range Interpretation Comments CULTURE, URINE (test SPECIMEN NUMBER: code = 88843) [id number] CULTURE, [id number] 00:00:00 Test Item Value Reference Range Interpretation Comments CULTURE, URINE (test SPECIMEN NUMBER: code = 34036) [id number] LIPID [id number] 00:00:00 Test Item Value Reference Range Interpretation Comments CHOLESTEROL (test code = 2210) 354 MG/DL TRIGLYCERIDES (test code = 2232) 2608 MG/DL HDL CHOLESTEROL (test code = 19 MG/DL 2220) CALC LDL CHOL (test code = 2237) NOTE MG/DL RISK RATIO LDL/HDL (test code = (NOTE) RATIO 2238) LIPID [id number] 00:00:00 Test Item Value Reference Range Interpretation Comments CHOLESTEROL (test code = 2210) 354 MG/DL TRIGLYCERIDES (test code = 2232) 2608 MG/DL HDL CHOLESTEROL (test code = 19 MG/DL 2220) CALC LDL CHOL (test code = 2237) NOTE MG/DL RISK RATIO LDL/HDL (test code = (NOTE) RATIO 2238) HEMOGLOBIN [id number] 00:00:00 Test Item Value Reference Range Interpretation Comments HEMOGLOBIN A1c (test code = 26329) 11.5 % HEMOGLOBIN [id number] 00:00:00 Test Item Value Reference Range Interpretation Comments HEMOGLOBIN A1c (test code = 05067) 11.5 % HEMOGLOBIN [id number] 00:00:00 Test Item Value Reference Range Interpretation Comments HEMOGLOBIN A1c (test code = 38292) 11.5 % MICROALBUMIN/CREATININE, RANDOM AND [id number] 00:00:00 Test Item Value Reference Range Interpretation Comments CREATININE, URINE, CONC. (test 92.4 MG/DL code = 2072) ALBUMIN, URINE, RANDOM (test code 158.5 MG/DL = 84049) CALC ALBUMIN/CREAT, RND (test 1715 MG/G code = 79422) MICROALBUMIN/CREATININE, RANDOM AND [id number] 00:00:00 Test Item Value Reference Range Interpretation Comments CREATININE, URINE, CONC. (test 92.4 MG/DL code = 2072) ALBUMIN, URINE, RANDOM (test code 158.5 MG/DL = 33229) CALC ALBUMIN/CREAT, RND (test 1715 MG/G code = 78779) LIPID [id number] 00:00:00 Test Item Value Reference Range Interpretation Comments CHOLESTEROL (test code = 2210) 354 MG/DL TRIGLYCERIDES (test code = 2232) 2608 MG/DL HDL CHOLESTEROL (test code = 19 MG/DL 2220) CALC LDL CHOL (test code = 2237) NOTE MG/DL RISK RATIO LDL/HDL (test code = (NOTE) RATIO 2238) LIPID [id number] 00:00:00 Test Item Value Reference Range Interpretation Comments CHOLESTEROL (test code = 2210) 354 MG/DL TRIGLYCERIDES (test code = 2232) 2608 MG/DL HDL CHOLESTEROL (test code = 19 MG/DL 2220) CALC LDL CHOL (test code = 2237) NOTE MG/DL RISK RATIO LDL/HDL (test code = (NOTE) RATIO 2238) HEMOGLOBIN [id number] 00:00:00 Test Item Value Reference Range Interpretation Comments HEMOGLOBIN A1c (test code = 31099) 11.5 % HEMOGLOBIN [id number] 00:00:00 Test Item Value Reference Range Interpretation Comments HEMOGLOBIN A1c (test code = 13586) 11.5 % HEMOGLOBIN [id number] 00:00:00 Test Item Value Reference Range Interpretation Comments HEMOGLOBIN A1c (test code = 28016) 11.5 % MICROALBUMIN/CREATININE, RANDOM AND [id number] 00:00:00 Test Item Value Reference Range Interpretation Comments CREATININE, URINE, CONC. (test 92.4 MG/DL code = 2072) ALBUMIN, URINE, RANDOM (test code 158.5 MG/DL = 34237) CALC ALBUMIN/CREAT, RND (test 1715 MG/G code = 55161) MICROALBUMIN/CREATININE, RANDOM AND [id number] 00:00:00 Test Item Value Reference Range Interpretation Comments CREATININE, URINE, CONC. (test 92.4 MG/DL code = 2072) ALBUMIN, URINE, RANDOM (test code 158.5 MG/DL = 24507) CALC ALBUMIN/CREAT, RND (test 1715 MG/G code = 88132) LIPID [id number] 00:00:00 Test Item Value Reference Range Interpretation Comments CHOLESTEROL (test code = 2210) 354 MG/DL TRIGLYCERIDES (test code = 2232) 2608 MG/DL HDL CHOLESTEROL (test code = 19 MG/DL 2220) CALC LDL CHOL (test code = 2237) NOTE MG/DL RISK RATIO LDL/HDL (test code = (NOTE) RATIO 2238) LIPID [id number] 00:00:00 Test Item Value Reference Range Interpretation Comments CHOLESTEROL (test code = 2210) 354 MG/DL TRIGLYCERIDES (test code = 2232) 2608 MG/DL HDL CHOLESTEROL (test code = 19 MG/DL 2220) CALC LDL CHOL (test code = 2237) NOTE MG/DL RISK RATIO LDL/HDL (test code = (NOTE) RATIO 2238) HEMOGLOBIN [id number] 00:00:00 Test Item Value Reference Range Interpretation Comments HEMOGLOBIN A1c (test code = 38951) 11.5 % HEMOGLOBIN [id number] 00:00:00 Test Item Value Reference Range Interpretation Comments HEMOGLOBIN A1c (test code = 57909) 11.5 % HEMOGLOBIN [id number] 00:00:00 Test Item Value Reference Range Interpretation Comments HEMOGLOBIN A1c (test code = 26534) 11.5 % MICROALBUMIN/CREATININE, RANDOM AND [id number] 00:00:00 Test Item Value Reference Range Interpretation Comments CREATININE, URINE, CONC. (test 92.4 MG/DL code = 2072) ALBUMIN, URINE, RANDOM (test code 158.5 MG/DL = 42730) CALC ALBUMIN/CREAT, RND (test 1715 MG/G code = 50913) MICROALBUMIN/CREATININE, RANDOM AND [id number] 00:00:00 Test Item Value Reference Range Interpretation Comments CREATININE, URINE, CONC. (test 92.4 MG/DL code = 2072) ALBUMIN, URINE, RANDOM (test code 158.5 MG/DL = 71877) CALC ALBUMIN/CREAT, RND (test 1715 MG/G code = 96846) LIPID [id number] 00:00:00 Test Item Value Reference Range Interpretation Comments CHOLESTEROL (test code = 2210) 354 MG/DL TRIGLYCERIDES (test code = 2232) 2608 MG/DL HDL CHOLESTEROL (test code = 19 MG/DL 2220) CALC LDL CHOL (test code = 2237) NOTE MG/DL RISK RATIO LDL/HDL (test code = (NOTE) RATIO 2238) LIPID [id number] 00:00:00 Test Item Value Reference Range Interpretation Comments CHOLESTEROL (test code = 2210) 354 MG/DL TRIGLYCERIDES (test code = 2232) 2608 MG/DL HDL CHOLESTEROL (test code = 19 MG/DL 2220) CALC LDL CHOL (test code = 2237) NOTE MG/DL RISK RATIO LDL/HDL (test code = (NOTE) RATIO 2238) HEMOGLOBIN [id number] 00:00:00 Test Item Value Reference Range Interpretation Comments HEMOGLOBIN A1c (test code = 10159) 11.5 % HEMOGLOBIN [id number] 00:00:00 Test Item Value Reference Range Interpretation Comments HEMOGLOBIN A1c (test code = 43437) 11.5 % HEMOGLOBIN [id number] 00:00:00 Test Item Value Reference Range Interpretation Comments HEMOGLOBIN A1c (test code = 67844) 11.5 % MICROALBUMIN/CREATININE, RANDOM AND [id number] 00:00:00 Test Item Value Reference Range Interpretation Comments CREATININE, URINE, CONC. (test 92.4 MG/DL code = 2072) ALBUMIN, URINE, RANDOM (test code 158.5 MG/DL = 38198) CALC ALBUMIN/CREAT, RND (test 1715 MG/G code = 83600) MICROALBUMIN/CREATININE, RANDOM AND [id number] 00:00:00 Test Item Value Reference Range Interpretation Comments CREATININE, URINE, CONC. (test 92.4 MG/DL code = 2072) ALBUMIN, URINE, RANDOM (test code 158.5 MG/DL = 78646) CALC ALBUMIN/CREAT, RND (test 1715 MG/G code = 95012) LIPID [id number] 00:00:00 Test Item Value Reference Range Interpretation Comments CHOLESTEROL (test code = 2210) 354 MG/DL TRIGLYCERIDES (test code = 2232) 2608 MG/DL HDL CHOLESTEROL (test code = 19 MG/DL 2220) CALC LDL CHOL (test code = 2237) NOTE MG/DL RISK RATIO LDL/HDL (test code = (NOTE) RATIO 2238) LIPID [id number] 00:00:00 Test Item Value Reference Range Interpretation Comments CHOLESTEROL (test code = 2210) 354 MG/DL TRIGLYCERIDES (test code = 2232) 2608 MG/DL HDL CHOLESTEROL (test code = 19 MG/DL 2220) CALC LDL CHOL (test code = 2237) NOTE MG/DL RISK RATIO LDL/HDL (test code = (NOTE) RATIO 2238) HEMOGLOBIN [id number] 00:00:00 Test Item Value Reference Range Interpretation Comments HEMOGLOBIN A1c (test code = 18029) 11.5 % HEMOGLOBIN [id number] 00:00:00 Test Item Value Reference Range Interpretation Comments HEMOGLOBIN A1c (test code = 51054) 11.5 % HEMOGLOBIN [id number] 00:00:00 Test Item Value Reference Range Interpretation Comments HEMOGLOBIN A1c (test code = 61735) 11.5 % MICROALBUMIN/CREATININE, RANDOM AND [id number] 00:00:00 Test Item Value Reference Range Interpretation Comments CREATININE, URINE, CONC. (test 92.4 MG/DL code = 2072) ALBUMIN, URINE, RANDOM (test code 158.5 MG/DL = 89706) CALC ALBUMIN/CREAT, RND (test 1715 MG/G code = 41834) MICROALBUMIN/CREATININE, RANDOM AND [id number] 00:00:00 Test Item Value Reference Range Interpretation Comments CREATININE, URINE, CONC. (test 92.4 MG/DL code = 2072) ALBUMIN, URINE, RANDOM (test code 158.5 MG/DL = 04219) CALC ALBUMIN/CREAT, RND (test 1715 MG/G code = 87111) LIPID [id number] 00:00:00 Test Item Value Reference Range Interpretation Comments CHOLESTEROL (test code = 2210) 354 MG/DL TRIGLYCERIDES (test code = 2232) 2608 MG/DL HDL CHOLESTEROL (test code = 19 MG/DL 2220) CALC LDL CHOL (test code = 2237) NOTE MG/DL RISK RATIO LDL/HDL (test code = (NOTE) RATIO 2238) LIPID [id number] 00:00:00 Test Item Value Reference Range Interpretation Comments CHOLESTEROL (test code = 2210) 354 MG/DL TRIGLYCERIDES (test code = 2232) 2608 MG/DL HDL CHOLESTEROL (test code = 19 MG/DL 2220) CALC LDL CHOL (test code = 2237) NOTE MG/DL RISK RATIO LDL/HDL (test code = (NOTE) RATIO 2238) HEMOGLOBIN [id number] 00:00:00 Test Item Value Reference Range Interpretation Comments HEMOGLOBIN A1c (test code = 45857) 11.5 % HEMOGLOBIN [id number] 00:00:00 Test Item Value Reference Range Interpretation Comments HEMOGLOBIN A1c (test code = 28762) 11.5 % HEMOGLOBIN [id number] 00:00:00 Test Item Value Reference Range Interpretation Comments HEMOGLOBIN A1c (test code = 38438) 11.5 % MICROALBUMIN/CREATININE, RANDOM AND [id number] 00:00:00 Test Item Value Reference Range Interpretation Comments CREATININE, URINE, CONC. (test 92.4 MG/DL code = 2072) ALBUMIN, URINE, RANDOM (test code 158.5 MG/DL = 94759) CALC ALBUMIN/CREAT, RND (test 1715 MG/G code = 93994) MICROALBUMIN/CREATININE, RANDOM AND [id number] 00:00:00 Test Item Value Reference Range Interpretation Comments CREATININE, URINE, CONC. (test 92.4 MG/DL code = 2072) ALBUMIN, URINE, RANDOM (test code 158.5 MG/DL = 26381) CALC ALBUMIN/CREAT, RND (test 1715 MG/G code = 75705) LIPID [id number] 00:00:00 Test Item Value Reference Range Interpretation Comments CHOLESTEROL (test code = 2210) 354 MG/DL TRIGLYCERIDES (test code = 2232) 2608 MG/DL HDL CHOLESTEROL (test code = 19 MG/DL 2220) CALC LDL CHOL (test code = 2237) NOTE MG/DL RISK RATIO LDL/HDL (test code = (NOTE) RATIO 2238) LIPID [id number] 00:00:00 Test Item Value Reference Range Interpretation Comments CHOLESTEROL (test code = 2210) 354 MG/DL TRIGLYCERIDES (test code = 2232) 2608 MG/DL HDL CHOLESTEROL (test code = 19 MG/DL 2220) CALC LDL CHOL (test code = 2237) NOTE MG/DL RISK RATIO LDL/HDL (test code = (NOTE) RATIO 2238) HEMOGLOBIN [id number] 00:00:00 Test Item Value Reference Range Interpretation Comments HEMOGLOBIN A1c (test code = 89662) 11.5 % HEMOGLOBIN [id number] 00:00:00 Test Item Value Reference Range Interpretation Comments HEMOGLOBIN A1c (test code = 93740) 11.5 % HEMOGLOBIN [id number] 00:00:00 Test Item Value Reference Range Interpretation Comments HEMOGLOBIN A1c (test code = 46292) 11.5 % MICROALBUMIN/CREATININE, RANDOM AND [id number] 00:00:00 Test Item Value Reference Range Interpretation Comments CREATININE, URINE, CONC. (test 92.4 MG/DL code = 2072) ALBUMIN, URINE, RANDOM (test code 158.5 MG/DL = 82066) CALC ALBUMIN/CREAT, RND (test 1715 MG/G code = 74015) MICROALBUMIN/CREATININE, RANDOM AND [id number] 00:00:00 Test Item Value Reference Range Interpretation Comments CREATININE, URINE, CONC. (test 92.4 MG/DL code = 2072) ALBUMIN, URINE, RANDOM (test code 158.5 MG/DL = 14037) CALC ALBUMIN/CREAT, RND (test 1715 MG/G code = 92922) LIPID [id number] 00:00:00 Test Item Value Reference Range Interpretation Comments CHOLESTEROL (test code = 2210) 354 MG/DL TRIGLYCERIDES (test code = 2232) 2608 MG/DL HDL CHOLESTEROL (test code = 19 MG/DL 2220) CALC LDL CHOL (test code = 2237) NOTE MG/DL RISK RATIO LDL/HDL (test code = (NOTE) RATIO 2238) HEMOGLOBIN [id number] 00:00:00 Test Item Value Reference Range Interpretation Comments HEMOGLOBIN A1c (test code = 72016) 11.5 % HEMOGLOBIN [id number] 00:00:00 Test Item Value Reference Range Interpretation Comments HEMOGLOBIN A1c (test code = 91729) 11.5 % MICROALBUMIN/CREATININE, RANDOM AND [id number] 00:00:00 Test Item Value Reference Range Interpretation Comments CREATININE, URINE, CONC. (test 92.4 MG/DL code = 2072) ALBUMIN, URINE, RANDOM (test code 158.5 MG/DL = 23135) CALC ALBUMIN/CREAT, RND (test 1715 MG/G code = 00729) LIPID [id number] 00:00:00 Test Item Value Reference Range Interpretation Comments CHOLESTEROL (test code = 2210) 354 MG/DL TRIGLYCERIDES (test code = 2232) 2608 MG/DL HDL CHOLESTEROL (test code = 19 MG/DL 2220) CALC LDL CHOL (test code = 2237) NOTE MG/DL RISK RATIO LDL/HDL (test code = (NOTE) RATIO 2238) LIPID [id number] 00:00:00 Test Item Value Reference Range Interpretation Comments CHOLESTEROL (test code = 2210) 354 MG/DL TRIGLYCERIDES (test code = 2232) 2608 MG/DL HDL CHOLESTEROL (test code = 19 MG/DL 2220) CALC LDL CHOL (test code = 2237) NOTE MG/DL RISK RATIO LDL/HDL (test code = (NOTE) RATIO 2238) HEMOGLOBIN [id number] 00:00:00 Test Item Value Reference Range Interpretation Comments HEMOGLOBIN A1c (test code = 36256) 11.5 % HEMOGLOBIN [id number] 00:00:00 Test Item Value Reference Range Interpretation Comments HEMOGLOBIN A1c (test code = 80833) 11.5 % HEMOGLOBIN [id number] 00:00:00 Test Item Value Reference Range Interpretation Comments HEMOGLOBIN A1c (test code = 96722) 11.5 % MICROALBUMIN/CREATININE, RANDOM AND [id number] 00:00:00 Test Item Value Reference Range Interpretation Comments CREATININE, URINE, CONC. (test 92.4 MG/DL code = 2072) ALBUMIN, URINE, RANDOM (test code 158.5 MG/DL = 05091) CALC ALBUMIN/CREAT, RND (test 1715 MG/G code = 17373) MICROALBUMIN/CREATININE, RANDOM AND [id number] 00:00:00 Test Item Value Reference Range Interpretation Comments CREATININE, URINE, CONC. (test 92.4 MG/DL code = 2072) ALBUMIN, URINE, RANDOM (test code 158.5 MG/DL = 69151) CALC ALBUMIN/CREAT, RND (test 1715 MG/G code = 56677) LIPID [id number] 00:00:00 Test Item Value Reference Range Interpretation Comments CHOLESTEROL (test code = 2210) 354 MG/DL TRIGLYCERIDES (test code = 2232) 2608 MG/DL HDL CHOLESTEROL (test code = 19 MG/DL 2220) CALC LDL CHOL (test code = 2237) NOTE MG/DL RISK RATIO LDL/HDL (test code = (NOTE) RATIO 2238) LIPID [id number] 00:00:00 Test Item Value Reference Range Interpretation Comments CHOLESTEROL (test code = 2210) 354 MG/DL TRIGLYCERIDES (test code = 2232) 2608 MG/DL HDL CHOLESTEROL (test code = 19 MG/DL 2220) CALC LDL CHOL (test code = 2237) NOTE MG/DL RISK RATIO LDL/HDL (test code = (NOTE) RATIO 2238) HEMOGLOBIN [id number] 00:00:00 Test Item Value Reference Range Interpretation Comments HEMOGLOBIN A1c (test code = 18396) 11.5 % HEMOGLOBIN [id number] 00:00:00 Test Item Value Reference Range Interpretation Comments HEMOGLOBIN A1c (test code = 81888) 11.5 % HEMOGLOBIN [id number] 00:00:00 Test Item Value Reference Range Interpretation Comments HEMOGLOBIN A1c (test code = 54140) 11.5 % MICROALBUMIN/CREATININE, RANDOM AND [id number] 00:00:00 Test Item Value Reference Range Interpretation Comments CREATININE, URINE, CONC. (test 92.4 MG/DL code = 2072) ALBUMIN, URINE, RANDOM (test code 158.5 MG/DL = 53564) CALC ALBUMIN/CREAT, RND (test 1715 MG/G code = 33558) MICROALBUMIN/CREATININE, RANDOM AND [id number] 00:00:00 Test Item Value Reference Range Interpretation Comments CREATININE, URINE, CONC. (test 92.4 MG/DL code = 2072) ALBUMIN, URINE, RANDOM (test code 158.5 MG/DL = 94573) CALC ALBUMIN/CREAT, RND (test 1715 MG/G code = 13496) LIPID [id number] 00:00:00 Test Item Value Reference Range Interpretation Comments CHOLESTEROL (test code = 2210) 354 MG/DL TRIGLYCERIDES (test code = 2232) 2608 MG/DL HDL CHOLESTEROL (test code = 19 MG/DL 2220) CALC LDL CHOL (test code = 2237) NOTE MG/DL RISK RATIO LDL/HDL (test code = (NOTE) RATIO 2238) LIPID [id number] 00:00:00 Test Item Value Reference Range Interpretation Comments CHOLESTEROL (test code = 2210) 354 MG/DL TRIGLYCERIDES (test code = 2232) 2608 MG/DL HDL CHOLESTEROL (test code = 19 MG/DL 2220) CALC LDL CHOL (test code = 2237) NOTE MG/DL RISK RATIO LDL/HDL (test code = (NOTE) RATIO 2238) HEMOGLOBIN [id number] 00:00:00 Test Item Value Reference Range Interpretation Comments HEMOGLOBIN A1c (test code = 87102) 11.5 % HEMOGLOBIN [id number] 00:00:00 Test Item Value Reference Range Interpretation Comments HEMOGLOBIN A1c (test code = 14403) 11.5 % HEMOGLOBIN [id number] 00:00:00 Test Item Value Reference Range Interpretation Comments HEMOGLOBIN A1c (test code = 48961) 11.5 % MICROALBUMIN/CREATININE, RANDOM AND [id number] 00:00:00 Test Item Value Reference Range Interpretation Comments CREATININE, URINE, CONC. (test 92.4 MG/DL code = 2072) ALBUMIN, URINE, RANDOM (test code 158.5 MG/DL = 82304) CALC ALBUMIN/CREAT, RND (test 1715 MG/G code = 65761) MICROALBUMIN/CREATININE, RANDOM AND [id number] 00:00:00 Test Item Value Reference Range Interpretation Comments CREATININE, URINE, CONC. (test 92.4 MG/DL code = 2072) ALBUMIN, URINE, RANDOM (test code 158.5 MG/DL = 38061) CALC ALBUMIN/CREAT, RND (test 1715 MG/G code = 03219) CULTURE, [id number] 00:00:00 Test Item Value Reference Range Interpretation Comments CULTURE, URINE (test SPECIMEN NUMBER: code = 63410) [id number] CULTURE, [id number] 00:00:00 Test Item Value Reference Range Interpretation Comments CULTURE, URINE (test SPECIMEN NUMBER: code = 62958) [id number] CULTURE, [id number] 00:00:00 Test Item Value Reference Range Interpretation Comments CULTURE, URINE (test SPECIMEN NUMBER: code = 44092) [id number] CULTURE, [id number] 00:00:00 Test Item Value Reference Range Interpretation Comments CULTURE, URINE (test SPECIMEN NUMBER: code = 50394) [id number] CULTURE, [id number] 00:00:00 Test Item Value Reference Range Interpretation Comments CULTURE, URINE (test SPECIMEN NUMBER: code = 91611) [id number] CULTURE, [id number] 00:00:00 Test Item Value Reference Range Interpretation Comments CULTURE, URINE (test SPECIMEN NUMBER: code = 76883) [id number] CULTURE, [id number] 00:00:00 Test Item Value Reference Range Interpretation Comments CULTURE, URINE (test SPECIMEN NUMBER: code = 20132) [id number] CULTURE, [id number] 00:00:00 Test Item Value Reference Range Interpretation Comments CULTURE, URINE (test SPECIMEN NUMBER: code = 39832) [id number] CULTURE, [id number] 00:00:00 Test Item Value Reference Range Interpretation Comments CULTURE, URINE (test SPECIMEN NUMBER: code = 41795) [id number] CULTURE, [id number] 00:00:00 Test Item Value Reference Range Interpretation Comments CULTURE, URINE (test SPECIMEN NUMBER: code = 88939) [id number] CULTURE, [id number] 00:00:00 Test Item Value Reference Range Interpretation Comments CULTURE, URINE (test SPECIMEN NUMBER: code = 41941) [id number] CULTURE, [id number] 00:00:00 Test Item Value Reference Range Interpretation Comments CULTURE, URINE (test SPECIMEN NUMBER: code = 77392) [id number] CULTURE, [id number] 00:00:00 Test Item Value Reference Range Interpretation Comments CULTURE, URINE (test SPECIMEN NUMBER: code = 33413) [id number] CULTURE, [id number] 00:00:00 Test Item Value Reference Range Interpretation Comments CULTURE, URINE (test SPECIMEN NUMBER: code = 65992) [id number] CULTURE, [id number] 00:00:00 Test Item Value Reference Range Interpretation Comments CULTURE, URINE (test SPECIMEN NUMBER: code = 49700) [id number] CULTURE, [id number] 00:00:00 Test Item Value Reference Range Interpretation Comments CULTURE, URINE (test SPECIMEN NUMBER: code = 15620) [id number] CULTURE, [id number] 00:00:00 Test Item Value Reference Range Interpretation Comments CULTURE, URINE (test SPECIMEN NUMBER: code = 28008) [id number] CULTURE, [id number] 00:00:00 Test Item Value Reference Range Interpretation Comments CULTURE, URINE (test SPECIMEN NUMBER: code = 66950) [id number] CULTURE, [id number] 00:00:00 Test Item Value Reference Range Interpretation Comments CULTURE, URINE (test SPECIMEN NUMBER: code = 50860) [id number] CULTURE, [id number] 00:00:00 Test Item Value Reference Range Interpretation Comments CULTURE, URINE (test SPECIMEN NUMBER: code = 76455) [id number] CULTURE, [id number] 00:00:00 Test Item Value Reference Range Interpretation Comments CULTURE, URINE (test SPECIMEN NUMBER: code = 36477) [id number] VAGINAL PATHOGENS DNA [id number] 00:00:00 Test Item Value Reference Range Interpretation Comments ANDIE SPECIES (test code = ) POSITIVE G. VAGINALIS (test code = 28222) NEGATIVE T. VAGINALIS (test code = 95801) NEGATIVE VAGINAL PATHOGENS DNA [id number] 00:00:00 Test Item Value Reference Range Interpretation Comments ANDIE SPECIES (test code = 32889) POSITIVE G. VAGINALIS (test code = 54695) NEGATIVE T. VAGINALIS (test code = 99437) NEGATIVE VAGINAL PATHOGENS DNA [id number] 00:00:00 Test Item Value Reference Range Interpretation Comments ANDIE SPECIES (test code = 89961) POSITIVE G. VAGINALIS (test code = 09288) NEGATIVE T. VAGINALIS (test code = 80685) NEGATIVE VAGINAL PATHOGENS DNA [id number] 00:00:00 Test Item Value Reference Range Interpretation Comments ANDIE SPECIES (test code = 57766) POSITIVE G. VAGINALIS (test code = 40421) NEGATIVE T. VAGINALIS (test code = 71786) NEGATIVE VAGINAL PATHOGENS DNA [id number] 00:00:00 Test Item Value Reference Range Interpretation Comments ANDIE SPECIES (test code = 49526) POSITIVE G. VAGINALIS (test code = 65850) NEGATIVE T. VAGINALIS (test code = 56718) NEGATIVE VAGINAL PATHOGENS DNA [id number] 00:00:00 Test Item Value Reference Range Interpretation Comments ANDIE SPECIES (test code = 25412) POSITIVE G. VAGINALIS (test code = 97062) NEGATIVE T. VAGINALIS (test code = 43654) NEGATIVE VAGINAL PATHOGENS DNA [id number] 00:00:00 Test Item Value Reference Range Interpretation Comments ANDIE SPECIES (test code = 95473) POSITIVE G. VAGINALIS (test code = 81374) NEGATIVE T. VAGINALIS (test code = 03635) NEGATIVE VAGINAL PATHOGENS DNA [id number] 00:00:00 Test Item Value Reference Range Interpretation Comments ANDIE SPECIES (test code = 96931) POSITIVE G. VAGINALIS (test code = 58712) NEGATIVE T. VAGINALIS (test code = 79351) NEGATIVE VAGINAL PATHOGENS DNA [id number] 00:00:00 Test Item Value Reference Range Interpretation Comments ANDIE SPECIES (test code = 40178) POSITIVE G. VAGINALIS (test code = 58283) NEGATIVE T. VAGINALIS (test code = 74128) NEGATIVE VAGINAL PATHOGENS DNA [id number] 00:00:00 Test Item Value Reference Range Interpretation Comments ANDIE SPECIES (test code = 08225) POSITIVE G. VAGINALIS (test code = 32276) NEGATIVE T. VAGINALIS (test code = 18990) NEGATIVE VAGINAL PATHOGENS DNA [id number] 00:00:00 Test Item Value Reference Range Interpretation Comments ANDIE SPECIES (test code = 41096) POSITIVE G. VAGINALIS (test code = 59641) NEGATIVE T. VAGINALIS (test code = 42365) NEGATIVE VAGINAL PATHOGENS DNA [id number] 00:00:00 Test Item Value Reference Range Interpretation Comments ANDIE SPECIES (test code = 15518) POSITIVE G. VAGINALIS (test code = 91408) NEGATIVE T. VAGINALIS (test code = 64988) NEGATIVE VAGINAL PATHOGENS DNA [id number] 00:00:00 Test Item Value Reference Range Interpretation Comments ANDIE SPECIES (test code = 08071) POSITIVE G. VAGINALIS (test code = 20210) NEGATIVE T. VAGINALIS (test code = 27078) NEGATIVE VAGINAL PATHOGENS DNA [id number] 00:00:00 Test Item Value Reference Range Interpretation Comments ANDIE SPECIES (test code = 12708) POSITIVE G. VAGINALIS (test code = 81018) NEGATIVE T. VAGINALIS (test code = 84496) NEGATIVE VAGINAL PATHOGENS DNA [id number] 00:00:00 Test Item Value Reference Range Interpretation Comments ANDIE SPECIES (test code = 73951) POSITIVE G. VAGINALIS (test code = 36000) NEGATIVE T. VAGINALIS (test code = 83131) NEGATIVE VAGINAL PATHOGENS DNA [id number] 00:00:00 Test Item Value Reference Range Interpretation Comments ANDIE SPECIES (test code = 76293) POSITIVE G. VAGINALIS (test code = 03959) NEGATIVE T. VAGINALIS (test code = 39123) NEGATIVE VAGINAL PATHOGENS DNA [id number] 00:00:00 Test Item Value Reference Range Interpretation Comments ANDIE SPECIES (test code = 11231) POSITIVE G. VAGINALIS (test code = 23184) NEGATIVE T. VAGINALIS (test code = 99761) NEGATIVE VAGINAL PATHOGENS DNA [id number] 00:00:00 Test Item Value Reference Range Interpretation Comments ANDIE SPECIES (test code = 90824) POSITIVE G. VAGINALIS (test code = 40601) NEGATIVE T. VAGINALIS (test code = 47549) NEGATIVE VAGINAL PATHOGENS DNA [id number] 00:00:00 Test Item Value Reference Range Interpretation Comments ANDIE SPECIES (test code = 34833) POSITIVE G. VAGINALIS (test code = 04605) NEGATIVE T. VAGINALIS (test code = 52857) NEGATIVE VAGINAL PATHOGENS DNA [id number] 00:00:00 Test Item Value Reference Range Interpretation Comments ANDIE SPECIES (test code = 22723) POSITIVE G. VAGINALIS (test code = 95437) NEGATIVE T. VAGINALIS (test code = 73518) NEGATIVE VAGINAL PATHOGENS DNA [id number] 00:00:00 Test Item Value Reference Range Interpretation Comments ANDIE SPECIES (test code = 72129) POSITIVE G. VAGINALIS (test code = 13483) NEGATIVE T. VAGINALIS (test code = 65086) NEGATIVE VAGINAL PATHOGENS DNA [id number] 00:00:00 Test Item Value Reference Range Interpretation Comments ANDIE SPECIES (test code = 52479) NEGATIVE G. VAGINALIS (test code = 11232) NEGATIVE T. VAGINALIS (test code = 86251) NEGATIVE VAGINAL PATHOGENS DNA [id number] 00:00:00 Test Item Value Reference Range Interpretation Comments ANDIE SPECIES (test code = 51186) NEGATIVE G. VAGINALIS (test code = 28954) NEGATIVE T. VAGINALIS (test code = 06802) NEGATIVE VAGINAL PATHOGENS DNA [id number] 00:00:00 Test Item Value Reference Range Interpretation Comments ANDIE SPECIES (test code = 52522) NEGATIVE G. VAGINALIS (test code = 74821) NEGATIVE T. VAGINALIS (test code = 97523) NEGATIVE VAGINAL PATHOGENS DNA [id number] 00:00:00 Test Item Value Reference Range Interpretation Comments ANDIE SPECIES (test code = 55573) NEGATIVE G. VAGINALIS (test code = 96460) NEGATIVE T. VAGINALIS (test code = 28235) NEGATIVE VAGINAL PATHOGENS DNA [id number] 00:00:00 Test Item Value Reference Range Interpretation Comments ANDIE SPECIES (test code = 30665) NEGATIVE G. VAGINALIS (test code = 72541) NEGATIVE T. VAGINALIS (test code = 77245) NEGATIVE VAGINAL PATHOGENS DNA [id number] 00:00:00 Test Item Value Reference Range Interpretation Comments ANDIE SPECIES (test code = 90996) NEGATIVE G. VAGINALIS (test code = 40884) NEGATIVE T. VAGINALIS (test code = 50380) NEGATIVE VAGINAL PATHOGENS DNA [id number] 00:00:00 Test Item Value Reference Range Interpretation Comments ANDIE SPECIES (test code = 16775) NEGATIVE G. VAGINALIS (test code = 37581) NEGATIVE T. VAGINALIS (test code = 99611) NEGATIVE VAGINAL PATHOGENS DNA [id number] 00:00:00 Test Item Value Reference Range Interpretation Comments ANDIE SPECIES (test code = 14795) NEGATIVE G. VAGINALIS (test code = 02740) NEGATIVE T. VAGINALIS (test code = 91248) NEGATIVE VAGINAL PATHOGENS DNA [id number] 00:00:00 Test Item Value Reference Range Interpretation Comments ANDIE SPECIES (test code = 64536) NEGATIVE G. VAGINALIS (test code = 74523) NEGATIVE T. VAGINALIS (test code = 24662) NEGATIVE VAGINAL PATHOGENS DNA [id number] 00:00:00 Test Item Value Reference Range Interpretation Comments ANDIE SPECIES (test code = 90612) NEGATIVE G. VAGINALIS (test code = 61347) NEGATIVE T. VAGINALIS (test code = 43268) NEGATIVE VAGINAL PATHOGENS DNA [id number] 00:00:00 Test Item Value Reference Range Interpretation Comments ANDIE SPECIES (test code = 07633) NEGATIVE G. VAGINALIS (test code = 31449) NEGATIVE T. VAGINALIS (test code = 14722) NEGATIVE VAGINAL PATHOGENS DNA [id number] 00:00:00 Test Item Value Reference Range Interpretation Comments ANDIE SPECIES (test code = 14674) NEGATIVE G. VAGINALIS (test code = 65797) NEGATIVE T. VAGINALIS (test code = 40591) NEGATIVE VAGINAL PATHOGENS DNA [id number] 00:00:00 Test Item Value Reference Range Interpretation Comments ANDIE SPECIES (test code = 04880) NEGATIVE G. VAGINALIS (test code = 16017) NEGATIVE T. VAGINALIS (test code = 41564) NEGATIVE VAGINAL PATHOGENS DNA [id number] 00:00:00 Test Item Value Reference Range Interpretation Comments ANDIE SPECIES (test code = 26868) NEGATIVE G. VAGINALIS (test code = 74197) NEGATIVE T. VAGINALIS (test code = 75248) NEGATIVE VAGINAL PATHOGENS DNA [id number] 00:00:00 Test Item Value Reference Range Interpretation Comments ANDIE SPECIES (test code = 02247) NEGATIVE G. VAGINALIS (test code = 42849) NEGATIVE T. VAGINALIS (test code = 03508) NEGATIVE VAGINAL PATHOGENS DNA [id number] 00:00:00 Test Item Value Reference Range Interpretation Comments ANDIE SPECIES (test code = 84419) NEGATIVE G. VAGINALIS (test code = 92476) NEGATIVE T. VAGINALIS (test code = 59689) NEGATIVE VAGINAL PATHOGENS DNA [id number] 00:00:00 Test Item Value Reference Range Interpretation Comments ANDIE SPECIES (test code = 91847) NEGATIVE G. VAGINALIS (test code = 55020) NEGATIVE T. VAGINALIS (test code = 30231) NEGATIVE VAGINAL PATHOGENS DNA [id number] 00:00:00 Test Item Value Reference Range Interpretation Comments ANDIE SPECIES (test code = 21846) NEGATIVE G. VAGINALIS (test code = 46583) NEGATIVE T. VAGINALIS (test code = 07083) NEGATIVE VAGINAL PATHOGENS DNA [id number] 00:00:00 Test Item Value Reference Range Interpretation Comments ANDIE SPECIES (test code = 41981) NEGATIVE G. VAGINALIS (test code = 38057) NEGATIVE T. VAGINALIS (test code = 99902) NEGATIVE VAGINAL PATHOGENS DNA [id number] 00:00:00 Test Item Value Reference Range Interpretation Comments ANDIE SPECIES (test code = 42526) NEGATIVE G. VAGINALIS (test code = 61323) NEGATIVE T. VAGINALIS (test code = 83563) NEGATIVE VAGINAL PATHOGENS DNA [id number] 00:00:00 Test Item Value Reference Range Interpretation Comments ANDIE SPECIES (test code = 96853) NEGATIVE G. VAGINALIS (test code = 39831) NEGATIVE T. VAGINALIS (test code = 08819) NEGATIVE VAGINAL PATHOGENS DNA [id number] 00:00:00 Test Item Value Reference Range Interpretation Comments ANDIE SPECIES (test code = 57709) NEGATIVE G. VAGINALIS (test code = 15229) POSITIVE T. VAGINALIS (test code = 82304) NEGATIVE VAGINAL PATHOGENS DNA [id number] 00:00:00 Test Item Value Reference Range Interpretation Comments ANDIE SPECIES (test code = 54514) NEGATIVE G. VAGINALIS (test code = 71096) POSITIVE T. VAGINALIS (test code = 25758) NEGATIVE VAGINAL PATHOGENS DNA [id number] 00:00:00 Test Item Value Reference Range Interpretation Comments ANDIE SPECIES (test code = 94800) NEGATIVE G. VAGINALIS (test code = 11604) POSITIVE T. VAGINALIS (test code = 31734) NEGATIVE VAGINAL PATHOGENS DNA [id number] 00:00:00 Test Item Value Reference Range Interpretation Comments ANDIE SPECIES (test code = 73661) NEGATIVE G. VAGINALIS (test code = 57674) POSITIVE T. VAGINALIS (test code = 85465) NEGATIVE VAGINAL PATHOGENS DNA [id number] 00:00:00 Test Item Value Reference Range Interpretation Comments ANDIE SPECIES (test code = 56588) NEGATIVE G. VAGINALIS (test code = 27598) POSITIVE T. VAGINALIS (test code = ) NEGATIVE VAGINAL PATHOGENS DNA [id number] 00:00:00 Test Item Value Reference Range Interpretation Comments ANDIE SPECIES (test code = 93378) NEGATIVE G. VAGINALIS (test code = 57493) POSITIVE T. VAGINALIS (test code = 34475) NEGATIVE VAGINAL PATHOGENS DNA [id number] 00:00:00 Test Item Value Reference Range Interpretation Comments ANDIE SPECIES (test code = 41732) NEGATIVE G. VAGINALIS (test code = 15715) POSITIVE T. VAGINALIS (test code = 32016) NEGATIVE VAGINAL PATHOGENS DNA [id number] 00:00:00 Test Item Value Reference Range Interpretation Comments ANDIE SPECIES (test code = 85551) NEGATIVE G. VAGINALIS (test code = 82176) POSITIVE T. VAGINALIS (test code = 93317) NEGATIVE VAGINAL PATHOGENS DNA [id number] 00:00:00 Test Item Value Reference Range Interpretation Comments ANDIE SPECIES (test code = 22834) NEGATIVE G. VAGINALIS (test code = 66694) POSITIVE T. VAGINALIS (test code = 65607) NEGATIVE VAGINAL PATHOGENS DNA [id number] 00:00:00 Test Item Value Reference Range Interpretation Comments ANDIE SPECIES (test code = 52287) NEGATIVE G. VAGINALIS (test code = 94764) POSITIVE T. VAGINALIS (test code = 26361) NEGATIVE VAGINAL PATHOGENS DNA [id number] 00:00:00 Test Item Value Reference Range Interpretation Comments ANDIE SPECIES (test code = 56324) NEGATIVE G. VAGINALIS (test code = 40245) POSITIVE T. VAGINALIS (test code = 00291) NEGATIVE VAGINAL PATHOGENS DNA [id number] 00:00:00 Test Item Value Reference Range Interpretation Comments ANDIE SPECIES (test code = 02879) NEGATIVE G. VAGINALIS (test code = 15500) POSITIVE T. VAGINALIS (test code = 14258) NEGATIVE VAGINAL PATHOGENS DNA [id number] 00:00:00 Test Item Value Reference Range Interpretation Comments ANDIE SPECIES (test code = 39693) NEGATIVE G. VAGINALIS (test code = 31125) POSITIVE T. VAGINALIS (test code = 97463) NEGATIVE VAGINAL PATHOGENS DNA [id number] 00:00:00 Test Item Value Reference Range Interpretation Comments ANDIE SPECIES (test code = 02782) NEGATIVE G. VAGINALIS (test code = 35581) POSITIVE T. VAGINALIS (test code = 51141) NEGATIVE VAGINAL PATHOGENS DNA [id number] 00:00:00 Test Item Value Reference Range Interpretation Comments ANDIE SPECIES (test code = 85943) NEGATIVE G. VAGINALIS (test code = 42771) POSITIVE T. VAGINALIS (test code = 81220) NEGATIVE VAGINAL PATHOGENS DNA [id number] 00:00:00 Test Item Value Reference Range Interpretation Comments ANDIE SPECIES (test code = 05894) NEGATIVE G. VAGINALIS (test code = 38919) POSITIVE T. VAGINALIS (test code = 12299) NEGATIVE VAGINAL PATHOGENS DNA [id number] 00:00:00 Test Item Value Reference Range Interpretation Comments ANDIE SPECIES (test code = 18844) NEGATIVE G. VAGINALIS (test code = 30739) POSITIVE T. VAGINALIS (test code = 30728) NEGATIVE VAGINAL PATHOGENS DNA [id number] 00:00:00 Test Item Value Reference Range Interpretation Comments ANDIE SPECIES (test code = 17408) NEGATIVE G. VAGINALIS (test code = 23243) POSITIVE T. VAGINALIS (test code = 22473) NEGATIVE VAGINAL PATHOGENS DNA [id number] 00:00:00 Test Item Value Reference Range Interpretation Comments ANDIE SPECIES (test code = 79355) NEGATIVE G. VAGINALIS (test code = 74346) POSITIVE T. VAGINALIS (test code = 35004) NEGATIVE VAGINAL PATHOGENS DNA [id number] 00:00:00 Test Item Value Reference Range Interpretation Comments ANDIE SPECIES (test code = 84348) NEGATIVE G. VAGINALIS (test code = 18124) POSITIVE T. VAGINALIS (test code = 76524) NEGATIVE VAGINAL PATHOGENS DNA [id number] 00:00:00 Test Item Value Reference Range Interpretation Comments ANDIE SPECIES (test code = 03261) NEGATIVE G. VAGINALIS (test code = 45666) POSITIVE T. VAGINALIS (test code = 71843) NEGATIVE COMPREHENSIVE METABOLIC [id number] 00:00:00 Test Item Value Reference Range Interpretation Comments GLUCOSE (test code = 2217) 353 MG/DL BUN (test code = 2208) 27 MG/DL CREATININE (test code = 2214) 0.90 MG/DL eGFR AMER. (test code 92 ML/MIN/1.73 = 59297) eGFR NON- AMER. (test 79 ML/MIN/1.73 code = 38397) CALC BUN/CREAT (test code = 30 RATIO [...] code = 2219) 18 U/L COMPREHENSIVE METABOLIC [id number] 00:00:00 Test Item Value Reference Range Interpretation Comments GLUCOSE (test code = 2217) 353 MG/DL BUN (test code = 2208) 27 MG/DL CREATININE (test code = 2214) 0.90 MG/DL eGFR AMER. (test code 92 ML/MIN/1.73 = 87366) eGFR NON- AMER. (test 79 ML/MIN/1.73 code = 96739) CALC BUN/CREAT (test code = 30 RATIO [...] (test code = 2219) 18 U/L LIPID [id number] 00:00:00 Test Item Value Reference Range Interpretation Comments CHOLESTEROL (test code = 2210) 412 MG/DL TRIGLYCERIDES (test code = 2232) 2520 MG/DL HDL CHOLESTEROL (test code = 16 MG/DL 2220) CALC LDL CHOL (test code = 2237) NOTE MG/DL RISK RATIO LDL/HDL (test code = (NOTE) RATIO 2238) LIPID [id number] 00:00:00 Test Item Value Reference Range Interpretation Comments CHOLESTEROL (test code = 2210) 412 MG/DL TRIGLYCERIDES (test code = 2232) 2520 MG/DL HDL CHOLESTEROL (test code = 16 MG/DL 2220) CALC LDL CHOL (test code = 2237) NOTE MG/DL RISK RATIO LDL/HDL (test code = (NOTE) RATIO 2238) HEMOGLOBIN [id number] 00:00:00 Test Item Value Reference Range Interpretation Comments HEMOGLOBIN A1c (test code = 01055) 10.7 % HEMOGLOBIN [id number] 00:00:00 Test Item Value Reference Range Interpretation Comments HEMOGLOBIN A1c (test code = 88881) 10.7 % HEMOGLOBIN [id number] 00:00:00 Test Item Value Reference Range Interpretation Comments HEMOGLOBIN A1c (test code = 79876) 10.7 % [id number] 00:00:00 Test Item Value Reference Range Interpretation Comments TSH, THIRD GENERATION (test code 0.777 UIU/ML = 2821) [id number] 00:00:00 Test Item Value Reference Range Interpretation Comments TSH, THIRD GENERATION (test code 0.777 UIU/ML = 2821) [id number] 00:00:00 Test Item Value Reference Range Interpretation Comments TSH, THIRD GENERATION (test code 0.777 UIU/ML = 2821) MICROALBUMIN/CREATININE, RANDOM AND [id number] 00:00:00 Test Item Value Reference Range Interpretation Comments CREATININE, URINE, CONC. (test 127.3 MG/DL code = 2072) ALBUMIN, URINE, RANDOM (test code 65.2 MG/DL = 18615) CALC ALBUMIN/CREAT, RND (test 512 MG/G code = 48265) MICROALBUMIN/CREATININE, RANDOM AND [id number] 00:00:00 Test Item Value Reference Range Interpretation Comments CREATININE, URINE, CONC. (test 127.3 MG/DL code = 2072) ALBUMIN, URINE, RANDOM (test code 65.2 MG/DL = 77729) CALC ALBUMIN/CREAT, RND (test 512 MG/G code = 36817) COMPREHENSIVE METABOLIC [id number] 00:00:00 Test Item Value Reference Range Interpretation Comments GLUCOSE (test code = 2217) 353 MG/DL BUN (test code = 2208) 27 MG/DL CREATININE (test code = 2214) 0.90 MG/DL eGFR AMER. (test code 92 ML/MIN/1.73 = 04957) eGFR NON- AMER. (test 79 ML/MIN/1.73 code = 06040) CALC BUN/CREAT (test code = 30 RATIO [...] code = 2219) 18 U/L COMPREHENSIVE METABOLIC [id number] 00:00:00 Test Item Value Reference Range Interpretation Comments GLUCOSE (test code = 2217) 353 MG/DL BUN (test code = 2208) 27 MG/DL CREATININE (test code = 2214) 0.90 MG/DL eGFR AMER. (test code 92 ML/MIN/1.73 = 44278) eGFR NON- AMER. (test 79 ML/MIN/1.73 code = 30974) CALC BUN/CREAT (test code = 30 RATIO [...] (test code = 2219) 18 U/L LIPID [id number] 00:00:00 Test Item Value Reference Range Interpretation Comments CHOLESTEROL (test code = 2210) 412 MG/DL TRIGLYCERIDES (test code = 2232) 2520 MG/DL HDL CHOLESTEROL (test code = 16 MG/DL 2220) CALC LDL CHOL (test code = 2237) NOTE MG/DL RISK RATIO LDL/HDL (test code = (NOTE) RATIO 2238) LIPID [id number] 00:00:00 Test Item Value Reference Range Interpretation Comments CHOLESTEROL (test code = 2210) 412 MG/DL TRIGLYCERIDES (test code = 2232) 2520 MG/DL HDL CHOLESTEROL (test code = 16 MG/DL 2220) CALC LDL CHOL (test code = 2237) NOTE MG/DL RISK RATIO LDL/HDL (test code = (NOTE) RATIO 2238) HEMOGLOBIN [id number] 00:00:00 Test Item Value Reference Range Interpretation Comments HEMOGLOBIN A1c (test code = 81042) 10.7 % HEMOGLOBIN [id number] 00:00:00 Test Item Value Reference Range Interpretation Comments HEMOGLOBIN A1c (test code = 92471) 10.7 % HEMOGLOBIN [id number] 00:00:00 Test Item Value Reference Range Interpretation Comments HEMOGLOBIN A1c (test code = 24415) 10.7 % [id number] 00:00:00 Test Item Value Reference Range Interpretation Comments TSH, THIRD GENERATION (test code 0.777 UIU/ML = 2821) [id number] 00:00:00 Test Item Value Reference Range Interpretation Comments TSH, THIRD GENERATION (test code 0.777 UIU/ML = 2821) [id number] 00:00:00 Test Item Value Reference Range Interpretation Comments TSH, THIRD GENERATION (test code 0.777 UIU/ML = 2821) MICROALBUMIN/CREATININE, RANDOM AND [id number] 00:00:00 Test Item Value Reference Range Interpretation Comments CREATININE, URINE, CONC. (test 127.3 MG/DL code = 2072) ALBUMIN, URINE, RANDOM (test code 65.2 MG/DL = 96561) CALC ALBUMIN/CREAT, RND (test 512 MG/G code = 02330) MICROALBUMIN/CREATININE, RANDOM AND [id number] 00:00:00 Test Item Value Reference Range Interpretation Comments CREATININE, URINE, CONC. (test 127.3 MG/DL code = 2072) ALBUMIN, URINE, RANDOM (test code 65.2 MG/DL = 06801) CALC ALBUMIN/CREAT, RND (test 512 MG/G code = 25714) COMPREHENSIVE METABOLIC [id number] 00:00:00 Test Item Value Reference Range Interpretation Comments GLUCOSE (test code = 2217) 353 MG/DL BUN (test code = 2208) 27 MG/DL CREATININE (test code = 2214) 0.90 MG/DL eGFR AMER. (test code 92 ML/MIN/1.73 = 72873) eGFR NON- AMER. (test 79 ML/MIN/1.73 code = 87445) CALC BUN/CREAT (test code = 30 RATIO [...] code = 2219) 18 U/L COMPREHENSIVE METABOLIC [id number] 00:00:00 Test Item Value Reference Range Interpretation Comments GLUCOSE (test code = 2217) 353 MG/DL BUN (test code = 2208) 27 MG/DL CREATININE (test code = 2214) 0.90 MG/DL eGFR AMER. (test code 92 ML/MIN/1.73 = 84174) eGFR NON- AMER. (test 79 ML/MIN/1.73 code = 95827) CALC BUN/CREAT (test code = 30 RATIO [...] (test code = 2219) 18 U/L LIPID [id number] 00:00:00 Test Item Value Reference Range Interpretation Comments CHOLESTEROL (test code = 2210) 412 MG/DL TRIGLYCERIDES (test code = 2232) 2520 MG/DL HDL CHOLESTEROL (test code = 16 MG/DL 2220) CALC LDL CHOL (test code = 2237) NOTE MG/DL RISK RATIO LDL/HDL (test code = (NOTE) RATIO 2238) LIPID [id number] 00:00:00 Test Item Value Reference Range Interpretation Comments CHOLESTEROL (test code = 2210) 412 MG/DL TRIGLYCERIDES (test code = 2232) 2520 MG/DL HDL CHOLESTEROL (test code = 16 MG/DL 2220) CALC LDL CHOL (test code = 2237) NOTE MG/DL RISK RATIO LDL/HDL (test code = (NOTE) RATIO 2238) HEMOGLOBIN [id number] 00:00:00 Test Item Value Reference Range Interpretation Comments HEMOGLOBIN A1c (test code = 33902) 10.7 % HEMOGLOBIN [id number] 00:00:00 Test Item Value Reference Range Interpretation Comments HEMOGLOBIN A1c (test code = 84804) 10.7 % HEMOGLOBIN [id number] 00:00:00 Test Item Value Reference Range Interpretation Comments HEMOGLOBIN A1c (test code = 05803) 10.7 % [id number] 00:00:00 Test Item Value Reference Range Interpretation Comments TSH, THIRD GENERATION (test code 0.777 UIU/ML = 2821) [id number] 00:00:00 Test Item Value Reference Range Interpretation Comments TSH, THIRD GENERATION (test code 0.777 UIU/ML = 2821) [id number] 00:00:00 Test Item Value Reference Range Interpretation Comments TSH, THIRD GENERATION (test code 0.777 UIU/ML = 2821) MICROALBUMIN/CREATININE, RANDOM AND [id number] 00:00:00 Test Item Value Reference Range Interpretation Comments CREATININE, URINE, CONC. (test 127.3 MG/DL code = 2072) ALBUMIN, URINE, RANDOM (test code 65.2 MG/DL = 20014) CALC ALBUMIN/CREAT, RND (test 512 MG/G code = 26267) MICROALBUMIN/CREATININE, RANDOM AND [id number] 00:00:00 Test Item Value Reference Range Interpretation Comments CREATININE, URINE, CONC. (test 127.3 MG/DL code = 2072) ALBUMIN, URINE, RANDOM (test code 65.2 MG/DL = 55809) CALC ALBUMIN/CREAT, RND (test 512 MG/G code = 69771) COMPREHENSIVE METABOLIC [id number] 00:00:00 Test Item Value Reference Range Interpretation Comments GLUCOSE (test code = 2217) 353 MG/DL BUN (test code = 2208) 27 MG/DL CREATININE (test code = 2214) 0.90 MG/DL eGFR AMER. (test code 92 ML/MIN/1.73 = 75414) eGFR NON- AMER. (test 79 ML/MIN/1.73 code = 33555) CALC BUN/CREAT (test code = 30 RATIO [...] code = 2219) 18 U/L COMPREHENSIVE METABOLIC [id number] 00:00:00 Test Item Value Reference Range Interpretation Comments GLUCOSE (test code = 2217) 353 MG/DL BUN (test code = 2208) 27 MG/DL CREATININE (test code = 2214) 0.90 MG/DL eGFR AMER. (test code 92 ML/MIN/1.73 = 44508) eGFR NON- AMER. (test 79 ML/MIN/1.73 code = 76906) CALC BUN/CREAT (test code = 30 RATIO [...] (test code = 2219) 18 U/L LIPID [id number] 00:00:00 Test Item Value Reference Range Interpretation Comments CHOLESTEROL (test code = 2210) 412 MG/DL TRIGLYCERIDES (test code = 2232) 2520 MG/DL HDL CHOLESTEROL (test code = 16 MG/DL 2220) CALC LDL CHOL (test code = 2237) NOTE MG/DL RISK RATIO LDL/HDL (test code = (NOTE) RATIO 2238) LIPID [id number] 00:00:00 Test Item Value Reference Range Interpretation Comments CHOLESTEROL (test code = 2210) 412 MG/DL TRIGLYCERIDES (test code = 2232) 2520 MG/DL HDL CHOLESTEROL (test code = 16 MG/DL 2220) CALC LDL CHOL (test code = 2237) NOTE MG/DL RISK RATIO LDL/HDL (test code = (NOTE) RATIO 2238) HEMOGLOBIN [id number] 00:00:00 Test Item Value Reference Range Interpretation Comments HEMOGLOBIN A1c (test code = 65008) 10.7 % HEMOGLOBIN [id number] 00:00:00 Test Item Value Reference Range Interpretation Comments HEMOGLOBIN A1c (test code = 04823) 10.7 % HEMOGLOBIN [id number] 00:00:00 Test Item Value Reference Range Interpretation Comments HEMOGLOBIN A1c (test code = 97541) 10.7 % [id number] 00:00:00 Test Item Value Reference Range Interpretation Comments TSH, THIRD GENERATION (test code 0.777 UIU/ML = 2821) [id number] 00:00:00 Test Item Value Reference Range Interpretation Comments TSH, THIRD GENERATION (test code 0.777 UIU/ML = 2821) [id number] 00:00:00 Test Item Value Reference Range Interpretation Comments TSH, THIRD GENERATION (test code 0.777 UIU/ML = 2821) MICROALBUMIN/CREATININE, RANDOM AND [id number] 00:00:00 Test Item Value Reference Range Interpretation Comments CREATININE, URINE, CONC. (test 127.3 MG/DL code = 2072) ALBUMIN, URINE, RANDOM (test code 65.2 MG/DL = 07235) CALC ALBUMIN/CREAT, RND (test 512 MG/G code = 45761) MICROALBUMIN/CREATININE, RANDOM AND [id number] 00:00:00 Test Item Value Reference Range Interpretation Comments CREATININE, URINE, CONC. (test 127.3 MG/DL code = 2072) ALBUMIN, URINE, RANDOM (test code 65.2 MG/DL = 76832) CALC ALBUMIN/CREAT, RND (test 512 MG/G code = 85686) COMPREHENSIVE METABOLIC [id number] 00:00:00 Test Item Value Reference Range Interpretation Comments GLUCOSE (test code = 2217) 353 MG/DL BUN (test code = 2208) 27 MG/DL CREATININE (test code = 2214) 0.90 MG/DL eGFR AMER. (test code 92 ML/MIN/1.73 = 91410) eGFR NON- AMER. (test 79 ML/MIN/1.73 code = 20548) CALC BUN/CREAT (test code = 30 RATIO [...] code = 2219) 18 U/L COMPREHENSIVE METABOLIC [id number] 00:00:00 Test Item Value Reference Range Interpretation Comments GLUCOSE (test code = 2217) 353 MG/DL BUN (test code = 2208) 27 MG/DL CREATININE (test code = 2214) 0.90 MG/DL eGFR AMER. (test code 92 ML/MIN/1.73 = 79553) eGFR NON- AMER. (test 79 ML/MIN/1.73 code = 04054) CALC BUN/CREAT (test code = 30 RATIO [...] (test code = 2219) 18 U/L LIPID [id number] 00:00:00 Test Item Value Reference Range Interpretation Comments CHOLESTEROL (test code = 2210) 412 MG/DL TRIGLYCERIDES (test code = 2232) 2520 MG/DL HDL CHOLESTEROL (test code = 16 MG/DL 2220) CALC LDL CHOL (test code = 2237) NOTE MG/DL RISK RATIO LDL/HDL (test code = (NOTE) RATIO 2238) LIPID [id number] 00:00:00 Test Item Value Reference Range Interpretation Comments CHOLESTEROL (test code = 2210) 412 MG/DL TRIGLYCERIDES (test code = 2232) 2520 MG/DL HDL CHOLESTEROL (test code = 16 MG/DL 2220) CALC LDL CHOL (test code = 2237) NOTE MG/DL RISK RATIO LDL/HDL (test code = (NOTE) RATIO 2238) HEMOGLOBIN [id number] 00:00:00 Test Item Value Reference Range Interpretation Comments HEMOGLOBIN A1c (test code = 00025) 10.7 % HEMOGLOBIN [id number] 00:00:00 Test Item Value Reference Range Interpretation Comments HEMOGLOBIN A1c (test code = 94905) 10.7 % HEMOGLOBIN [id number] 00:00:00 Test Item Value Reference Range Interpretation Comments HEMOGLOBIN A1c (test code = 12388) 10.7 % [id number] 00:00:00 Test Item Value Reference Range Interpretation Comments TSH, THIRD GENERATION (test code 0.777 UIU/ML = 2821) [id number] 00:00:00 Test Item Value Reference Range Interpretation Comments TSH, THIRD GENERATION (test code 0.777 UIU/ML = 2821) [id number] 00:00:00 Test Item Value Reference Range Interpretation Comments TSH, THIRD GENERATION (test code 0.777 UIU/ML = 2821) MICROALBUMIN/CREATININE, RANDOM AND [id number] 00:00:00 Test Item Value Reference Range Interpretation Comments CREATININE, URINE, CONC. (test 127.3 MG/DL code = 2072) ALBUMIN, URINE, RANDOM (test code 65.2 MG/DL = 62178) CALC ALBUMIN/CREAT, RND (test 512 MG/G code = 83169) MICROALBUMIN/CREATININE, RANDOM AND [id number] 00:00:00 Test Item Value Reference Range Interpretation Comments CREATININE, URINE, CONC. (test 127.3 MG/DL code = 2072) ALBUMIN, URINE, RANDOM (test code 65.2 MG/DL = 05854) CALC ALBUMIN/CREAT, RND (test 512 MG/G code = 38885) COMPREHENSIVE METABOLIC [id number] 00:00:00 Test Item Value Reference Range Interpretation Comments GLUCOSE (test code = 2217) 353 MG/DL BUN (test code = 2208) 27 MG/DL CREATININE (test code = 2214) 0.90 MG/DL eGFR AMER. (test code 92 ML/MIN/1.73 = 46934) eGFR NON- AMER. (test 79 ML/MIN/1.73 code = 66088) CALC BUN/CREAT (test code = 30 RATIO [...] code = 2219) 18 U/L COMPREHENSIVE METABOLIC [id number] 00:00:00 Test Item Value Reference Range Interpretation Comments GLUCOSE (test code = 2217) 353 MG/DL BUN (test code = 2208) 27 MG/DL CREATININE (test code = 2214) 0.90 MG/DL eGFR AMER. (test code 92 ML/MIN/1.73 = 97955) eGFR NON- AMER. (test 79 ML/MIN/1.73 code = 56241) CALC BUN/CREAT (test code = 30 RATIO [...] (test code = 2219) 18 U/L LIPID [id number] 00:00:00 Test Item Value Reference Range Interpretation Comments CHOLESTEROL (test code = 2210) 412 MG/DL TRIGLYCERIDES (test code = 2232) 2520 MG/DL HDL CHOLESTEROL (test code = 16 MG/DL 2220) CALC LDL CHOL (test code = 2237) NOTE MG/DL RISK RATIO LDL/HDL (test code = (NOTE) RATIO 2238) LIPID [id number] 00:00:00 Test Item Value Reference Range Interpretation Comments CHOLESTEROL (test code = 2210) 412 MG/DL TRIGLYCERIDES (test code = 2232) 2520 MG/DL HDL CHOLESTEROL (test code = 16 MG/DL 2220) CALC LDL CHOL (test code = 2237) NOTE MG/DL RISK RATIO LDL/HDL (test code = (NOTE) RATIO 2238) HEMOGLOBIN [id number] 00:00:00 Test Item Value Reference Range Interpretation Comments HEMOGLOBIN A1c (test code = 91114) 10.7 % HEMOGLOBIN [id number] 00:00:00 Test Item Value Reference Range Interpretation Comments HEMOGLOBIN A1c (test code = 36564) 10.7 % HEMOGLOBIN [id number] 00:00:00 Test Item Value Reference Range Interpretation Comments HEMOGLOBIN A1c (test code = 74609) 10.7 % [id number] 00:00:00 Test Item Value Reference Range Interpretation Comments TSH, THIRD GENERATION (test code 0.777 UIU/ML = 2821) [id number] 00:00:00 Test Item Value Reference Range Interpretation Comments TSH, THIRD GENERATION (test code 0.777 UIU/ML = 2821) [id number] 00:00:00 Test Item Value Reference Range Interpretation Comments TSH, THIRD GENERATION (test code 0.777 UIU/ML = 2821) MICROALBUMIN/CREATININE, RANDOM AND [id number] 00:00:00 Test Item Value Reference Range Interpretation Comments CREATININE, URINE, CONC. (test 127.3 MG/DL code = 2072) ALBUMIN, URINE, RANDOM (test code 65.2 MG/DL = 28059) CALC ALBUMIN/CREAT, RND (test 512 MG/G code = 64938) MICROALBUMIN/CREATININE, RANDOM AND [id number] 00:00:00 Test Item Value Reference Range Interpretation Comments CREATININE, URINE, CONC. (test 127.3 MG/DL code = 2072) ALBUMIN, URINE, RANDOM (test code 65.2 MG/DL = 48000) CALC ALBUMIN/CREAT, RND (test 512 MG/G code = 85957) COMPREHENSIVE METABOLIC [id number] 00:00:00 Test Item Value Reference Range Interpretation Comments GLUCOSE (test code = 2217) 353 MG/DL BUN (test code = 2208) 27 MG/DL CREATININE (test code = 2214) 0.90 MG/DL eGFR AMER. (test code 92 ML/MIN/1.73 = 98094) eGFR NON- AMER. (test 79 ML/MIN/1.73 code = 75537) CALC BUN/CREAT (test code = 30 RATIO [...] code = 2219) 18 U/L COMPREHENSIVE METABOLIC [id number] 00:00:00 Test Item Value Reference Range Interpretation Comments GLUCOSE (test code = 2217) 353 MG/DL BUN (test code = 2208) 27 MG/DL CREATININE (test code = 2214) 0.90 MG/DL eGFR AMER. (test code 92 ML/MIN/1.73 = 66687) eGFR NON- AMER. (test 79 ML/MIN/1.73 code = 60879) CALC BUN/CREAT (test code = 30 RATIO [...] (test code = 2219) 18 U/L LIPID [id number] 00:00:00 Test Item Value Reference Range Interpretation Comments CHOLESTEROL (test code = 2210) 412 MG/DL TRIGLYCERIDES (test code = 2232) 2520 MG/DL HDL CHOLESTEROL (test code = 16 MG/DL 2220) CALC LDL CHOL (test code = 2237) NOTE MG/DL RISK RATIO LDL/HDL (test code = (NOTE) RATIO 2238) LIPID [id number] 00:00:00 Test Item Value Reference Range Interpretation Comments CHOLESTEROL (test code = 2210) 412 MG/DL TRIGLYCERIDES (test code = 2232) 2520 MG/DL HDL CHOLESTEROL (test code = 16 MG/DL 2220) CALC LDL CHOL (test code = 2237) NOTE MG/DL RISK RATIO LDL/HDL (test code = (NOTE) RATIO 2238) HEMOGLOBIN [id number] 00:00:00 Test Item Value Reference Range Interpretation Comments HEMOGLOBIN A1c (test code = 92628) 10.7 % HEMOGLOBIN [id number] 00:00:00 Test Item Value Reference Range Interpretation Comments HEMOGLOBIN A1c (test code = 56440) 10.7 % COMPREHENSIVE METABOLIC [id number] 00:00:00 Test Item Value Reference Range Interpretation Comments GLUCOSE (test code = 2217) 353 MG/DL BUN (test code = 2208) 27 MG/DL CREATININE (test code = 2214) 0.90 MG/DL eGFR AMER. (test code 92 ML/MIN/1.73 = 15877) eGFR NON- AMER. (test 79 ML/MIN/1.73 code = 71783) CALC BUN/CREAT (test code = 30 RATIO [...] (test code = 2219) 18 U/L HEMOGLOBIN [id number] 00:00:00 Test Item Value Reference Range Interpretation Comments HEMOGLOBIN A1c (test code = 30124) 10.7 % [id number] 00:00:00 Test Item Value Reference Range Interpretation Comments TSH, THIRD GENERATION (test code 0.777 UIU/ML = 2821) [id number] 00:00:00 Test Item Value Reference Range Interpretation Comments TSH, THIRD GENERATION (test code 0.777 UIU/ML = 2821) [id number] 00:00:00 Test Item Value Reference Range Interpretation Comments TSH, THIRD GENERATION (test code 0.777 UIU/ML = 2821) MICROALBUMIN/CREATININE, RANDOM AND [id number] 00:00:00 Test Item Value Reference Range Interpretation Comments CREATININE, URINE, CONC. (test 127.3 MG/DL code = 2072) ALBUMIN, URINE, RANDOM (test code 65.2 MG/DL = 51725) CALC ALBUMIN/CREAT, RND (test 512 MG/G code = 17179) MICROALBUMIN/CREATININE, RANDOM AND [id number] 00:00:00 Test Item Value Reference Range Interpretation Comments CREATININE, URINE, CONC. (test 127.3 MG/DL code = 2072) ALBUMIN, URINE, RANDOM (test code 65.2 MG/DL = 38437) CALC ALBUMIN/CREAT, RND (test 512 MG/G code = 46520) LIPID [id number] 00:00:00 Test Item Value Reference Range Interpretation Comments CHOLESTEROL (test code = 2210) 412 MG/DL TRIGLYCERIDES (test code = 2232) 2520 MG/DL HDL CHOLESTEROL (test code = 16 MG/DL 2220) CALC LDL CHOL (test code = 2237) NOTE MG/DL RISK RATIO LDL/HDL (test code = (NOTE) RATIO 2238) HEMOGLOBIN [id number] 00:00:00 Test Item Value Reference Range Interpretation Comments HEMOGLOBIN A1c (test code = 39856) 10.7 % HEMOGLOBIN [id number] 00:00:00 Test Item Value Reference Range Interpretation Comments HEMOGLOBIN A1c (test code = 00840) 10.7 % COMPREHENSIVE METABOLIC [id number] 00:00:00 Test Item Value Reference Range Interpretation Comments GLUCOSE (test code = 2217) 353 MG/DL BUN (test code = 2208) 27 MG/DL CREATININE (test code = 2214) 0.90 MG/DL eGFR AMER. (test code 92 ML/MIN/1.73 = 47097) eGFR NON- AMER. (test 79 ML/MIN/1.73 code = 20542) CALC BUN/CREAT (test code = 30 RATIO [...] code = 2219) 18 U/L COMPREHENSIVE METABOLIC [id number] 00:00:00 Test Item Value Reference Range Interpretation Comments GLUCOSE (test code = 2217) 353 MG/DL BUN (test code = 2208) 27 MG/DL CREATININE (test code = 2214) 0.90 MG/DL eGFR AMER. (test code 92 ML/MIN/1.73 = 56830) eGFR NON- AMER. (test 79 ML/MIN/1.73 code = 52022) CALC BUN/CREAT (test code = 30 RATIO [...] ALT (test code = 2219) 18 U/L [id number] 00:00:00 Test Item Value Reference Range Interpretation Comments TSH, THIRD GENERATION (test code 0.777 UIU/ML = 2821) LIPID [id number] 00:00:00 Test Item Value Reference Range Interpretation Comments CHOLESTEROL (test code = 2210) 412 MG/DL TRIGLYCERIDES (test code = 2232) 2520 MG/DL HDL CHOLESTEROL (test code = 16 MG/DL 2220) CALC LDL CHOL (test code = 2237) NOTE MG/DL RISK RATIO LDL/HDL (test code = (NOTE) RATIO 2238) [id number] 00:00:00 Test Item Value Reference Range Interpretation Comments TSH, THIRD GENERATION (test code 0.777 UIU/ML = 2821) LIPID [id number] 00:00:00 Test Item Value Reference Range Interpretation Comments CHOLESTEROL (test code = 2210) 412 MG/DL TRIGLYCERIDES (test code = 2232) 2520 MG/DL HDL CHOLESTEROL (test code = 16 MG/DL 2220) CALC LDL CHOL (test code = 2237) NOTE MG/DL RISK RATIO LDL/HDL (test code = (NOTE) RATIO 2238) HEMOGLOBIN [id number] 00:00:00 Test Item Value Reference Range Interpretation Comments HEMOGLOBIN A1c (test code = 77950) 10.7 % HEMOGLOBIN [id number] 00:00:00 Test Item Value Reference Range Interpretation Comments HEMOGLOBIN A1c (test code = 91826) 10.7 % HEMOGLOBIN [id number] 00:00:00 Test Item Value Reference Range Interpretation Comments HEMOGLOBIN A1c (test code = 33568) 10.7 % [id number] 00:00:00 Test Item Value Reference Range Interpretation Comments TSH, THIRD GENERATION (test code 0.777 UIU/ML = 2821) [id number] 00:00:00 Test Item Value Reference Range Interpretation Comments TSH, THIRD GENERATION (test code 0.777 UIU/ML = 2821) MICROALBUMIN/CREATININE, RANDOM AND [id number] 00:00:00 Test Item Value Reference Range Interpretation Comments CREATININE, URINE, CONC. (test 127.3 MG/DL code = 2072) ALBUMIN, URINE, RANDOM (test code 65.2 MG/DL = 56553) CALC ALBUMIN/CREAT, RND (test 512 MG/G code = 24300) [id number] 00:00:00 Test Item Value Reference Range Interpretation Comments TSH, THIRD GENERATION (test code 0.777 UIU/ML = 2821) MICROALBUMIN/CREATININE, RANDOM AND [id number] 00:00:00 Test Item Value Reference Range Interpretation Comments CREATININE, URINE, CONC. (test 127.3 MG/DL code = 2072) ALBUMIN, URINE, RANDOM (test code 65.2 MG/DL = 88743) CALC ALBUMIN/CREAT, RND (test 512 MG/G code = 79328) MICROALBUMIN/CREATININE, RANDOM AND [id number] 00:00:00 Test Item Value Reference Range Interpretation Comments CREATININE, URINE, CONC. (test 127.3 MG/DL code = 2072) ALBUMIN, URINE, RANDOM (test code 65.2 MG/DL = 70674) CALC ALBUMIN/CREAT, RND (test 512 MG/G code = 64803) COMPREHENSIVE METABOLIC [id number] 00:00:00 Test Item Value Reference Range Interpretation Comments GLUCOSE (test code = 2217) 353 MG/DL BUN (test code = 2208) 27 MG/DL CREATININE (test code = 2214) 0.90 MG/DL eGFR AMER. (test code 92 ML/MIN/1.73 = 03517) eGFR NON- AMER. (test 79 ML/MIN/1.73 code = 77949) CALC BUN/CREAT (test code = 30 RATIO [...] code = 2219) 18 U/L COMPREHENSIVE METABOLIC [id number] 00:00:00 Test Item Value Reference Range Interpretation Comments GLUCOSE (test code = 2217) 353 MG/DL BUN (test code = 2208) 27 MG/DL CREATININE (test code = 2214) 0.90 MG/DL eGFR AMER. (test code 92 ML/MIN/1.73 = 39056) eGFR NON- AMER. (test 79 ML/MIN/1.73 code = 93774) CALC BUN/CREAT (test code = 30 RATIO [...] (test code = 2219) 18 U/L LIPID [id number] 00:00:00 Test Item Value Reference Range Interpretation Comments CHOLESTEROL (test code = 2210) 412 MG/DL TRIGLYCERIDES (test code = 2232) 2520 MG/DL HDL CHOLESTEROL (test code = 16 MG/DL 2220) CALC LDL CHOL (test code = 2237) NOTE MG/DL RISK RATIO LDL/HDL (test code = (NOTE) RATIO 2238) LIPID [id number] 00:00:00 Test Item Value Reference Range Interpretation Comments CHOLESTEROL (test code = 2210) 412 MG/DL TRIGLYCERIDES (test code = 2232) 2520 MG/DL HDL CHOLESTEROL (test code = 16 MG/DL 2220) CALC LDL CHOL (test code = 2237) NOTE MG/DL RISK RATIO LDL/HDL (test code = (NOTE) RATIO 2238) HEMOGLOBIN [id number] 00:00:00 Test Item Value Reference Range Interpretation Comments HEMOGLOBIN A1c (test code = 43741) 10.7 % HEMOGLOBIN [id number] 00:00:00 Test Item Value Reference Range Interpretation Comments HEMOGLOBIN A1c (test code = 82926) 10.7 % HEMOGLOBIN [id number] 00:00:00 Test Item Value Reference Range Interpretation Comments HEMOGLOBIN A1c (test code = 74834) 10.7 % [id number] 00:00:00 Test Item Value Reference Range Interpretation Comments TSH, THIRD GENERATION (test code 0.777 UIU/ML = 2821) [id number] 00:00:00 Test Item Value Reference Range Interpretation Comments TSH, THIRD GENERATION (test code 0.777 UIU/ML = 2821) [id number] 00:00:00 Test Item Value Reference Range Interpretation Comments TSH, THIRD GENERATION (test code 0.777 UIU/ML = 2821) MICROALBUMIN/CREATININE, RANDOM AND [id number] 00:00:00 Test Item Value Reference Range Interpretation Comments CREATININE, URINE, CONC. (test 127.3 MG/DL code = 2072) ALBUMIN, URINE, RANDOM (test code 65.2 MG/DL = 52798) CALC ALBUMIN/CREAT, RND (test 512 MG/G code = 02312) MICROALBUMIN/CREATININE, RANDOM AND [id number] 00:00:00 Test Item Value Reference Range Interpretation Comments CREATININE, URINE, CONC. (test 127.3 MG/DL code = 2072) ALBUMIN, URINE, RANDOM (test code 65.2 MG/DL = 24730) CALC ALBUMIN/CREAT, RND (test 512 MG/G code = 61807) COMPREHENSIVE METABOLIC [id number] 00:00:00 Test Item Value Reference Range Interpretation Comments GLUCOSE (test code = 2217) 353 MG/DL BUN (test code = 2208) 27 MG/DL CREATININE (test code = 2214) 0.90 MG/DL eGFR AMER. (test code 92 ML/MIN/1.73 = 02541) eGFR NON- AMER. (test 79 ML/MIN/1.73 code = 99909) CALC BUN/CREAT (test code = 30 RATIO [...] code = 2219) 18 U/L COMPREHENSIVE METABOLIC [id number] 00:00:00 Test Item Value Reference Range Interpretation Comments GLUCOSE (test code = 2217) 353 MG/DL BUN (test code = 2208) 27 MG/DL CREATININE (test code = 2214) 0.90 MG/DL eGFR AMER. (test code 92 ML/MIN/1.73 = 46351) eGFR NON- AMER. (test 79 ML/MIN/1.73 code = 56693) CALC BUN/CREAT (test code = 30 RATIO [...] (test code = 2219) 18 U/L LIPID [id number] 00:00:00 Test Item Value Reference Range Interpretation Comments CHOLESTEROL (test code = 2210) 412 MG/DL TRIGLYCERIDES (test code = 2232) 2520 MG/DL HDL CHOLESTEROL (test code = 16 MG/DL 2220) CALC LDL CHOL (test code = 2237) NOTE MG/DL RISK RATIO LDL/HDL (test code = (NOTE) RATIO 2238) LIPID [id number] 00:00:00 Test Item Value Reference Range Interpretation Comments CHOLESTEROL (test code = 2210) 412 MG/DL TRIGLYCERIDES (test code = 2232) 2520 MG/DL HDL CHOLESTEROL (test code = 16 MG/DL 2220) CALC LDL CHOL (test code = 2237) NOTE MG/DL RISK RATIO LDL/HDL (test code = (NOTE) RATIO 2238) HEMOGLOBIN [id number] 00:00:00 Test Item Value Reference Range Interpretation Comments HEMOGLOBIN A1c (test code = 26988) 10.7 % HEMOGLOBIN [id number] 00:00:00 Test Item Value Reference Range Interpretation Comments HEMOGLOBIN A1c (test code = 79652) 10.7 % HEMOGLOBIN [id number] 00:00:00 Test Item Value Reference Range Interpretation Comments HEMOGLOBIN A1c (test code = 22564) 10.7 % [id number] 00:00:00 Test Item Value Reference Range Interpretation Comments TSH, THIRD GENERATION (test code 0.777 UIU/ML = 2821) [id number] 00:00:00 Test Item Value Reference Range Interpretation Comments TSH, THIRD GENERATION (test code 0.777 UIU/ML = 2821) [id number] 00:00:00 Test Item Value Reference Range Interpretation Comments TSH, THIRD GENERATION (test code 0.777 UIU/ML = 2821) MICROALBUMIN/CREATININE, RANDOM AND [id number] 00:00:00 Test Item Value Reference Range Interpretation Comments CREATININE, URINE, CONC. (test 127.3 MG/DL code = 2072) ALBUMIN, URINE, RANDOM (test code 65.2 MG/DL = 83690) CALC ALBUMIN/CREAT, RND (test 512 MG/G code = 06509) MICROALBUMIN/CREATININE, RANDOM AND [id number] 00:00:00 Test Item Value Reference Range Interpretation Comments CREATININE, URINE, CONC. (test 127.3 MG/DL code = 2072) ALBUMIN, URINE, RANDOM (test code 65.2 MG/DL = 64650) CALC ALBUMIN/CREAT, RND (test 512 MG/G code = 98614) CULTURE, [id number] 00:00:00 Test Item Value Reference Range Interpretation Comments CULTURE, URINE (test SPECIMEN NUMBER: code = 64621) [id number] CULTURE, [id number] 00:00:00 Test Item Value Reference Range Interpretation Comments CULTURE, URINE (test SPECIMEN NUMBER: code = 66824) [id number] CULTURE, [id number] 00:00:00 Test Item Value Reference Range Interpretation Comments CULTURE, URINE (test SPECIMEN NUMBER: code = 95790) [id number] CULTURE, [id number] 00:00:00 Test Item Value Reference Range Interpretation Comments CULTURE, URINE (test SPECIMEN NUMBER: code = 58896) [id number] CULTURE, [id number] 00:00:00 Test Item Value Reference Range Interpretation Comments CULTURE, URINE (test SPECIMEN NUMBER: code = 37997) [id number] CULTURE, [id number] 00:00:00 Test Item Value Reference Range Interpretation Comments CULTURE, URINE (test SPECIMEN NUMBER: code = 85261) [id number] CULTURE, [id number] 00:00:00 Test Item Value Reference Range Interpretation Comments CULTURE, URINE (test SPECIMEN NUMBER: code = 48937) [id number] CULTURE, [id number] 00:00:00 Test Item Value Reference Range Interpretation Comments CULTURE, URINE (test SPECIMEN NUMBER: code = 34387) [id number] CULTURE, [id number] 00:00:00 Test Item Value Reference Range Interpretation Comments CULTURE, URINE (test SPECIMEN NUMBER: code = 42600) [id number] CULTURE, [id number] 00:00:00 Test Item Value Reference Range Interpretation Comments CULTURE, URINE (test SPECIMEN NUMBER: code = 50129) [id number] CULTURE, [id number] 00:00:00 Test Item Value Reference Range Interpretation Comments CULTURE, URINE (test SPECIMEN NUMBER: code = 71730) [id number] CULTURE, [id number] 00:00:00 Test Item Value Reference Range Interpretation Comments CULTURE, URINE (test SPECIMEN NUMBER: code = 67469) [id number] CULTURE, [id number] 00:00:00 Test Item Value Reference Range Interpretation Comments CULTURE, URINE (test SPECIMEN NUMBER: code = 42513) [id number] CULTURE, [id number] 00:00:00 Test Item Value Reference Range Interpretation Comments CULTURE, URINE (test SPECIMEN NUMBER: code = 67334) [id number] CULTURE, [id number] 00:00:00 Test Item Value Reference Range Interpretation Comments CULTURE, URINE (test SPECIMEN NUMBER: code = 99366) [id number] CULTURE, [id number] 00:00:00 Test Item Value Reference Range Interpretation Comments CULTURE, URINE (test SPECIMEN NUMBER: code = 87920) [id number] CULTURE, [id number] 00:00:00 Test Item Value Reference Range Interpretation Comments CULTURE, URINE (test SPECIMEN NUMBER: code = 49986) [id number] CULTURE, [id number] 00:00:00 Test Item Value Reference Range Interpretation Comments CULTURE, URINE (test SPECIMEN NUMBER: code = 98597) [id number] CULTURE, [id number] 00:00:00 Test Item Value Reference Range Interpretation Comments CULTURE, URINE (test SPECIMEN NUMBER: code = 15894) [id number] CULTURE, [id number] 00:00:00 Test Item Value Reference Range Interpretation Comments CULTURE, URINE (test SPECIMEN NUMBER: code = 52941) [id number] CULTURE, [id number] 00:00:00 Test Item Value Reference Range Interpretation Comments CULTURE, URINE (test SPECIMEN NUMBER: code = 23410) [id number] VAGINAL PATHOGENS DNA [id number] 00:00:00 Test Item Value Reference Range Interpretation Comments ANDIE SPECIES (test code = 66328) NEGATIVE G. VAGINALIS (test code = 25700) NEGATIVE T. VAGINALIS (test code = 63639) NEGATIVE VAGINAL PATHOGENS DNA [id number] 00:00:00 Test Item Value Reference Range Interpretation Comments ANDIE SPECIES (test code = 92384) NEGATIVE G. VAGINALIS (test code = 35869) NEGATIVE T. VAGINALIS (test code = 15482) NEGATIVE VAGINAL PATHOGENS DNA [id number] 00:00:00 Test Item Value Reference Range Interpretation Comments ANDIE SPECIES (test code = 68233) NEGATIVE G. VAGINALIS (test code = 78084) NEGATIVE T. VAGINALIS (test code = 51074) NEGATIVE VAGINAL PATHOGENS DNA [id number] 00:00:00 Test Item Value Reference Range Interpretation Comments ANDIE SPECIES (test code = 99508) NEGATIVE G. VAGINALIS (test code = 17171) NEGATIVE T. VAGINALIS (test code = ) NEGATIVE VAGINAL PATHOGENS DNA [id number] 00:00:00 Test Item Value Reference Range Interpretation Comments ANDIE SPECIES (test code = 77467) NEGATIVE G. VAGINALIS (test code = 39974) NEGATIVE T. VAGINALIS (test code = 30191) NEGATIVE VAGINAL PATHOGENS DNA [id number] 00:00:00 Test Item Value Reference Range Interpretation Comments ANDIE SPECIES (test code = 34599) NEGATIVE G. VAGINALIS (test code = 82749) NEGATIVE T. VAGINALIS (test code = 76167) NEGATIVE VAGINAL PATHOGENS DNA [id number] 00:00:00 Test Item Value Reference Range Interpretation Comments ANDIE SPECIES (test code = 08036) NEGATIVE G. VAGINALIS (test code = 64940) NEGATIVE T. VAGINALIS (test code = 04648) NEGATIVE VAGINAL PATHOGENS DNA [id number] 00:00:00 Test Item Value Reference Range Interpretation Comments ANDIE SPECIES (test code = 83503) NEGATIVE G. VAGINALIS (test code = 13474) NEGATIVE T. VAGINALIS (test code = 09591) NEGATIVE VAGINAL PATHOGENS DNA [id number] 00:00:00 Test Item Value Reference Range Interpretation Comments ADNIE SPECIES (test code = 76648) NEGATIVE G. VAGINALIS (test code = 96076) NEGATIVE T. VAGINALIS (test code = 47064) NEGATIVE VAGINAL PATHOGENS DNA [id number] 00:00:00 Test Item Value Reference Range Interpretation Comments ANDIE SPECIES (test code = 80956) NEGATIVE G. VAGINALIS (test code = 45080) NEGATIVE T. VAGINALIS (test code = 14485) NEGATIVE VAGINAL PATHOGENS DNA [id number] 00:00:00 Test Item Value Reference Range Interpretation Comments ANDIE SPECIES (test code = 11784) NEGATIVE G. VAGINALIS (test code = 89921) NEGATIVE T. VAGINALIS (test code = 31951) NEGATIVE VAGINAL PATHOGENS DNA [id number] 00:00:00 Test Item Value Reference Range Interpretation Comments ANDIE SPECIES (test code = 57272) NEGATIVE G. VAGINALIS (test code = 61133) NEGATIVE T. VAGINALIS (test code = 36227) NEGATIVE VAGINAL PATHOGENS DNA [id number] 00:00:00 Test Item Value Reference Range Interpretation Comments ANDIE SPECIES (test code = 84006) NEGATIVE G. VAGINALIS (test code = 90590) NEGATIVE T. VAGINALIS (test code = ) NEGATIVE VAGINAL PATHOGENS DNA [id number] 00:00:00 Test Item Value Reference Range Interpretation Comments ANDIE SPECIES (test code = 31332) NEGATIVE G. VAGINALIS (test code = 88617) NEGATIVE T. VAGINALIS (test code = 04021) NEGATIVE VAGINAL PATHOGENS DNA [id number] 00:00:00 Test Item Value Reference Range Interpretation Comments ANDIE SPECIES (test code = 92260) NEGATIVE G. VAGINALIS (test code = 28419) NEGATIVE T. VAGINALIS (test code = 14399) NEGATIVE VAGINAL PATHOGENS DNA [id number] 00:00:00 Test Item Value Reference Range Interpretation Comments ANDIE SPECIES (test code = 04273) NEGATIVE G. VAGINALIS (test code = 92625) NEGATIVE T. VAGINALIS (test code = 32750) NEGATIVE VAGINAL PATHOGENS DNA [id number] 00:00:00 Test Item Value Reference Range Interpretation Comments ANDIE SPECIES (test code = 29240) NEGATIVE G. VAGINALIS (test code = 19800) NEGATIVE T. VAGINALIS (test code = 14479) NEGATIVE VAGINAL PATHOGENS DNA [id number] 00:00:00 Test Item Value Reference Range Interpretation Comments ANDIE SPECIES (test code = 84259) NEGATIVE G. VAGINALIS (test code = 41223) NEGATIVE T. VAGINALIS (test code = 48937) NEGATIVE VAGINAL PATHOGENS DNA [id number] 00:00:00 Test Item Value Reference Range Interpretation Comments ANDIE SPECIES (test code = 56053) NEGATIVE G. VAGINALIS (test code = 20351) NEGATIVE T. VAGINALIS (test code = 15319) NEGATIVE VAGINAL PATHOGENS DNA [id number] 00:00:00 Test Item Value Reference Range Interpretation Comments ANDIE SPECIES (test code = 03080) NEGATIVE G. VAGINALIS (test code = 30867) NEGATIVE T. VAGINALIS (test code = 31106) NEGATIVE VAGINAL PATHOGENS DNA [id number] 00:00:00 Test Item Value Reference Range Interpretation Comments ANDIE SPECIES (test code = 95591) NEGATIVE G. VAGINALIS (test code = 03398) NEGATIVE T. VAGINALIS (test code = 95753) NEGATIVE COMPREHENSIVE METABOLIC PANEL [ADDED]2018-05-24 00:00:00 Test Item Value Reference Range Interpretation Comments GLUCOSE (test code = 2217) 198 MG/DL BUN (test code = 2208) 18 MG/DL CREATININE (test code = 2214) 0.86 MG/DL eGFR AMER. (test code 98 ML/MIN/1.73 = 89580) eGFR NON- AMER. (test 84 ML/MIN/1.73 code = 05413) CALC BUN/CREAT (test code = 21 RATIO [...] eGFR AMER. (test code 98 ML/MIN/1.73 = 31228) eGFR NON- AMER. (test 84 ML/MIN/1.73 code = 33802) CALC BUN/CREAT (test code = 21 RATIO [...] Interpretation Comments HEMOGLOBIN A1c (test code = 93315) 10.1 % HEMOGLOBIN A1c [ADDED]2018-05-24 00:00:00 Test Item Value Reference Range Interpretation Comments HEMOGLOBIN A1c (test code = 36573) 10.1 % HEMOGLOBIN A1c [ADDED]2018-05-24 00:00:00 Test Item Value Reference Range Interpretation Comments HEMOGLOBIN A1c (test code = 98303) 10.1 % COMPREHENSIVE METABOLIC PANEL [ADDED]2018-05-24 00:00:00 Test Item Value Reference Range Interpretation Comments GLUCOSE (test code = 2217) 198 MG/DL BUN (test code = 2208) 18 MG/DL CREATININE (test code = 2214) 0.86 MG/DL eGFR AMER. (test code 98 ML/MIN/1.73 = 79795) eGFR NON- AMER. (test 84 ML/MIN/1.73 code = 09688) CALC BUN/CREAT (test code = 21 RATIO [...] eGFR AMER. (test code 98 ML/MIN/1.73 = 61383) eGFR NON- AMER. (test 84 ML/MIN/1.73 code = 02667) CALC BUN/CREAT (test code = 21 RATIO [...] Interpretation Comments HEMOGLOBIN A1c (test code = 68678) 10.1 % HEMOGLOBIN A1c [ADDED]2018-05-24 00:00:00 Test Item Value Reference Range Interpretation Comments HEMOGLOBIN A1c (test code = 04574) 10.1 % HEMOGLOBIN A1c [ADDED]2018-05-24 00:00:00 Test Item Value Reference Range Interpretation Comments HEMOGLOBIN A1c (test code = 22674) 10.1 % COMPREHENSIVE METABOLIC PANEL [ADDED]2018-05-24 00:00:00 Test Item Value Reference Range Interpretation Comments GLUCOSE (test code = 2217) 198 MG/DL BUN (test code = 2208) 18 MG/DL CREATININE (test code = 2214) 0.86 MG/DL eGFR AMER. (test code 98 ML/MIN/1.73 = 16349) eGFR NON- AMER. (test 84 ML/MIN/1.73 code = 60472) CALC BUN/CREAT (test code = 21 RATIO [...] eGFR AMER. (test code 98 ML/MIN/1.73 = 11340) eGFR NON- AMER. (test 84 ML/MIN/1.73 code = 15734) CALC BUN/CREAT (test code = 21 RATIO [...] Interpretation Comments HEMOGLOBIN A1c (test code = 13846) 10.1 % HEMOGLOBIN A1c [ADDED]2018-05-24 00:00:00 Test Item Value Reference Range Interpretation Comments HEMOGLOBIN A1c (test code = 78616) 10.1 % HEMOGLOBIN A1c [ADDED]2018-05-24 00:00:00 Test Item Value Reference Range Interpretation Comments HEMOGLOBIN A1c (test code = 21465) 10.1 % COMPREHENSIVE METABOLIC PANEL [ADDED]2018-05-24 00:00:00 Test Item Value Reference Range Interpretation Comments GLUCOSE (test code = 2217) 198 MG/DL BUN (test code = 2208) 18 MG/DL CREATININE (test code = 2214) 0.86 MG/DL eGFR AMER. (test code 98 ML/MIN/1.73 = 22158) eGFR NON- AMER. (test 84 ML/MIN/1.73 code = 16149) CALC BUN/CREAT (test code = 21 RATIO [...] eGFR AMER. (test code 98 ML/MIN/1.73 = 93584) eGFR NON- AMER. (test 84 ML/MIN/1.73 code = 53520) CALC BUN/CREAT (test code = 21 RATIO [...] Interpretation Comments HEMOGLOBIN A1c (test code = 34088) 10.1 % HEMOGLOBIN A1c [ADDED]2018-05-24 00:00:00 Test Item Value Reference Range Interpretation Comments HEMOGLOBIN A1c (test code = 73258) 10.1 % HEMOGLOBIN A1c [ADDED]2018-05-24 00:00:00 Test Item Value Reference Range Interpretation Comments HEMOGLOBIN A1c (test code = 17856) 10.1 % COMPREHENSIVE METABOLIC PANEL [ADDED]2018-05-24 00:00:00 Test Item Value Reference Range Interpretation Comments GLUCOSE (test code = 2217) 198 MG/DL BUN (test code = 2208) 18 MG/DL CREATININE (test code = 2214) 0.86 MG/DL eGFR AMER. (test code 98 ML/MIN/1.73 = 20378) eGFR NON- AMER. (test 84 ML/MIN/1.73 code = 94562) CALC BUN/CREAT (test code = 21 RATIO [...] eGFR AMER. (test code 98 ML/MIN/1.73 = 54063) eGFR NON- AMER. (test 84 ML/MIN/1.73 code = 95242) CALC BUN/CREAT (test code = 21 RATIO [...] Interpretation Comments HEMOGLOBIN A1c (test code = 01514) 10.1 % HEMOGLOBIN A1c [ADDED]2018-05-24 00:00:00 Test Item Value Reference Range Interpretation Comments HEMOGLOBIN A1c (test code = 33336) 10.1 % HEMOGLOBIN A1c [ADDED]2018-05-24 00:00:00 Test Item Value Reference Range Interpretation Comments HEMOGLOBIN A1c (test code = 30684) 10.1 % COMPREHENSIVE METABOLIC PANEL [ADDED]2018-05-24 00:00:00 Test Item Value Reference Range Interpretation Comments GLUCOSE (test code = 2217) 198 MG/DL BUN (test code = 2208) 18 MG/DL CREATININE (test code = 2214) 0.86 MG/DL eGFR AMER. (test code 98 ML/MIN/1.73 = 09674) eGFR NON- AMER. (test 84 ML/MIN/1.73 code = 31750) CALC BUN/CREAT (test code = 21 RATIO [...] eGFR AMER. (test code 98 ML/MIN/1.73 = 81252) eGFR NON- AMER. (test 84 ML/MIN/1.73 code = 99953) CALC BUN/CREAT (test code = 21 RATIO [...] Interpretation Comments HEMOGLOBIN A1c (test code = 00022) 10.1 % HEMOGLOBIN A1c [ADDED]2018-05-24 00:00:00 Test Item Value Reference Range Interpretation Comments HEMOGLOBIN A1c (test code = 38287) 10.1 % HEMOGLOBIN A1c [ADDED]2018-05-24 00:00:00 Test Item Value Reference Range Interpretation Comments HEMOGLOBIN A1c (test code = 77009) 10.1 % COMPREHENSIVE METABOLIC PANEL [ADDED]2018-05-24 00:00:00 Test Item Value Reference Range Interpretation Comments GLUCOSE (test code = 2217) 198 MG/DL BUN (test code = 2208) 18 MG/DL CREATININE (test code = 2214) 0.86 MG/DL eGFR AMER. (test code 98 ML/MIN/1.73 = 96358) eGFR NON- AMER. (test 84 ML/MIN/1.73 code = 71317) CALC BUN/CREAT (test code = 21 RATIO [...] eGFR AMER. (test code 98 ML/MIN/1.73 = 21863) eGFR NON- AMER. (test 84 ML/MIN/1.73 code = 40326) CALC BUN/CREAT (test code = 21 RATIO [...] Interpretation Comments HEMOGLOBIN A1c (test code = 32013) 10.1 % HEMOGLOBIN A1c [ADDED]2018-05-24 00:00:00 Test Item Value Reference Range Interpretation Comments HEMOGLOBIN A1c (test code = 99977) 10.1 % HEMOGLOBIN A1c [ADDED]2018-05-24 00:00:00 Test Item Value Reference Range Interpretation Comments HEMOGLOBIN A1c (test code = 91061) 10.1 % COMPREHENSIVE METABOLIC PANEL [ADDED]2018-05-24 00:00:00 Test Item Value Reference Range Interpretation Comments GLUCOSE (test code = 2217) 198 MG/DL BUN (test code = 2208) 18 MG/DL CREATININE (test code = 2214) 0.86 MG/DL eGFR AMER. (test code 98 ML/MIN/1.73 = 93857) eGFR NON- AMER. (test 84 ML/MIN/1.73 code = 80171) CALC BUN/CREAT (test code = 21 RATIO [...] Interpretation Comments HEMOGLOBIN A1c (test code = 55064) 10.1 % HEMOGLOBIN A1c [ADDED]2018-05-24 00:00:00 Test Item Value Reference Range Interpretation Comments HEMOGLOBIN A1c (test code = 11539) 10.1 % COMPREHENSIVE METABOLIC PANEL [ADDED]2018-05-24 00:00:00 Test Item Value Reference Range Interpretation Comments GLUCOSE (test code = 2217) 198 MG/DL BUN (test code = 2208) 18 MG/DL CREATININE (test code = 2214) 0.86 MG/DL eGFR AMER. (test code 98 ML/MIN/1.73 = 06348) eGFR NON- AMER. (test 84 ML/MIN/1.73 code = 72725) CALC BUN/CREAT (test code = 21 RATIO [...] eGFR AMER. (test code 98 ML/MIN/1.73 = 48875) eGFR NON- AMER. (test 84 ML/MIN/1.73 code = 18925) CALC BUN/CREAT (test code = 21 RATIO [...] Interpretation Comments HEMOGLOBIN A1c (test code = 63585) 10.1 % HEMOGLOBIN A1c [ADDED]2018-05-24 00:00:00 Test Item Value Reference Range Interpretation Comments HEMOGLOBIN A1c (test code = 42887) 10.1 % HEMOGLOBIN A1c [ADDED]2018-05-24 00:00:00 Test Item Value Reference Range Interpretation Comments HEMOGLOBIN A1c (test code = 98000) 10.1 % COMPREHENSIVE METABOLIC PANEL [ADDED]2018-05-24 00:00:00 Test Item Value Reference Range Interpretation Comments GLUCOSE (test code = 2217) 198 MG/DL BUN (test code = 2208) 18 MG/DL CREATININE (test code = 2214) 0.86 MG/DL eGFR AMER. (test code 98 ML/MIN/1.73 = 05442) eGFR NON- AMER. (test 84 ML/MIN/1.73 code = 49655) CALC BUN/CREAT (test code = 21 RATIO [...] eGFR AMER. (test code 98 ML/MIN/1.73 = 13059) eGFR NON- AMER. (test 84 ML/MIN/1.73 code = 13023) CALC BUN/CREAT (test code = 21 RATIO [...] Interpretation Comments HEMOGLOBIN A1c (test code = 83118) 10.1 % HEMOGLOBIN A1c [ADDED]2018-05-24 00:00:00 Test Item Value Reference Range Interpretation Comments HEMOGLOBIN A1c (test code = 08323) 10.1 % HEMOGLOBIN A1c [ADDED]2018-05-24 00:00:00 Test Item Value Reference Range Interpretation Comments HEMOGLOBIN A1c (test code = 95656) 10.1 % COMPREHENSIVE METABOLIC PANEL [ADDED]2018-05-24 00:00:00 Test Item Value Reference Range Interpretation Comments GLUCOSE (test code = 2217) 198 MG/DL BUN (test code = 2208) 18 MG/DL CREATININE (test code = 2214) 0.86 MG/DL eGFR AMER. (test code 98 ML/MIN/1.73 = 71688) eGFR NON- AMER. (test 84 ML/MIN/1.73 code = 08346) CALC BUN/CREAT (test code = 21 RATIO [...] eGFR AMER. (test code 98 ML/MIN/1.73 = 08395) eGFR NON- AMER. (test 84 ML/MIN/1.73 code = 00631) CALC BUN/CREAT (test code = 21 RATIO [...] Interpretation Comments HEMOGLOBIN A1c (test code = 56238) 10.1 % HEMOGLOBIN A1c [ADDED]2018-05-24 00:00:00 Test Item Value Reference Range Interpretation Comments HEMOGLOBIN A1c (test code = 61144) 10.1 % HEMOGLOBIN A1c [ADDED]2018-05-24 00:00:00 Test Item Value Reference Range Interpretation Comments HEMOGLOBIN A1c (test code = 90067) 10.1 % HEMOGLOBIN [id number] 00:00:00 Test Item Value Reference Range Interpretation Comments HEMOGLOBIN A1c (test code = 72772) 8.5 % HEMOGLOBIN [id number] 00:00:00 Test Item Value Reference Range Interpretation Comments HEMOGLOBIN A1c (test code = 84144) 8.5 % HEMOGLOBIN [id number] 00:00:00 Test Item Value Reference Range Interpretation Comments HEMOGLOBIN A1c (test code = 60845) 8.5 % COMPREHENSIVE METABOLIC [id number] 00:00:00 Test Item Value Reference Range Interpretation Comments GLUCOSE (test code = 2217) 131 MG/DL BUN (test code = 2208) 16 MG/DL CREATININE (test code = 2214) 0.71 MG/DL eGFR AMER. (test code 124 ML/MIN/1.73 = 04566) eGFR NON- AMER. (test 107 ML/MIN/1.73 code = 60892) CALC BUN/CREAT (test code = 23 RATIO [...] code = 2219) 33 U/L COMPREHENSIVE METABOLIC [id number] 00:00:00 Test Item Value Reference Range Interpretation Comments GLUCOSE (test code = 2217) 131 MG/DL BUN (test code = 2208) 16 MG/DL CREATININE (test code = 2214) 0.71 MG/DL eGFR AMER. (test code 124 ML/MIN/1.73 = 00932) eGFR NON- AMER. (test 107 ML/MIN/1.73 code = 41486) CALC BUN/CREAT (test code = 23 RATIO [...] (test code = 2219) 33 U/L LIPID [id number] 00:00:00 Test Item Value Reference Range Interpretation Comments CHOLESTEROL (test code = 2210) 201 MG/DL TRIGLYCERIDES (test code = 2232) 1014 MG/DL HDL CHOLESTEROL (test code = 25 MG/DL 2220) CALC LDL CHOL (test code = 2237) NOTE MG/DL RISK RATIO LDL/HDL (test code = (NOTE) RATIO 2238) LIPID [id number] 00:00:00 Test Item Value Reference Range Interpretation Comments CHOLESTEROL (test code = 2210) 201 MG/DL TRIGLYCERIDES (test code = 2232) 1014 MG/DL HDL CHOLESTEROL (test code = 25 MG/DL 2220) CALC LDL CHOL (test code = 2237) NOTE MG/DL RISK RATIO LDL/HDL (test code = (NOTE) RATIO 2238) HEMOGLOBIN [id number] 00:00:00 Test Item Value Reference Range Interpretation Comments HEMOGLOBIN A1c (test code = 87224) 8.5 % HEMOGLOBIN [id number] 00:00:00 Test Item Value Reference Range Interpretation Comments HEMOGLOBIN A1c (test code = 14948) 8.5 % HEMOGLOBIN [id number] 00:00:00 Test Item Value Reference Range Interpretation Comments HEMOGLOBIN A1c (test code = 95630) 8.5 % COMPREHENSIVE METABOLIC [id number] 00:00:00 Test Item Value Reference Range Interpretation Comments GLUCOSE (test code = 2217) 131 MG/DL BUN (test code = 2208) 16 MG/DL CREATININE (test code = 2214) 0.71 MG/DL eGFR AMER. (test code 124 ML/MIN/1.73 = 06982) eGFR NON- AMER. (test 107 ML/MIN/1.73 code = 37162) CALC BUN/CREAT (test code = 23 RATIO [...] code = 2219) 33 U/L COMPREHENSIVE METABOLIC [id number] 00:00:00 Test Item Value Reference Range Interpretation Comments GLUCOSE (test code = 2217) 131 MG/DL BUN (test code = 2208) 16 MG/DL CREATININE (test code = 2214) 0.71 MG/DL eGFR AMER. (test code 124 ML/MIN/1.73 = 44776) eGFR NON- AMER. (test 107 ML/MIN/1.73 code = 93541) CALC BUN/CREAT (test code = 23 RATIO [...] (test code = 2219) 33 U/L LIPID [id number] 00:00:00 Test Item Value Reference Range Interpretation Comments CHOLESTEROL (test code = 2210) 201 MG/DL TRIGLYCERIDES (test code = 2232) 1014 MG/DL HDL CHOLESTEROL (test code = 25 MG/DL 2220) CALC LDL CHOL (test code = 2237) NOTE MG/DL RISK RATIO LDL/HDL (test code = (NOTE) RATIO 2238) LIPID [id number] 00:00:00 Test Item Value Reference Range Interpretation Comments CHOLESTEROL (test code = 2210) 201 MG/DL TRIGLYCERIDES (test code = 2232) 1014 MG/DL HDL CHOLESTEROL (test code = 25 MG/DL 2220) CALC LDL CHOL (test code = 2237) NOTE MG/DL RISK RATIO LDL/HDL (test code = (NOTE) RATIO 2238) HEMOGLOBIN [id number] 00:00:00 Test Item Value Reference Range Interpretation Comments HEMOGLOBIN A1c (test code = 68916) 8.5 % HEMOGLOBIN [id number] 00:00:00 Test Item Value Reference Range Interpretation Comments HEMOGLOBIN A1c (test code = 64461) 8.5 % HEMOGLOBIN [id number] 00:00:00 Test Item Value Reference Range Interpretation Comments HEMOGLOBIN A1c (test code = 01111) 8.5 % COMPREHENSIVE METABOLIC [id number] 00:00:00 Test Item Value Reference Range Interpretation Comments GLUCOSE (test code = 2217) 131 MG/DL BUN (test code = 2208) 16 MG/DL CREATININE (test code = 2214) 0.71 MG/DL eGFR AMER. (test code 124 ML/MIN/1.73 = 67352) eGFR NON- AMER. (test 107 ML/MIN/1.73 code = 35529) CALC BUN/CREAT (test code = 23 RATIO [...] code = 2219) 33 U/L COMPREHENSIVE METABOLIC [id number] 00:00:00 Test Item Value Reference Range Interpretation Comments GLUCOSE (test code = 2217) 131 MG/DL BUN (test code = 2208) 16 MG/DL CREATININE (test code = 2214) 0.71 MG/DL eGFR AMER. (test code 124 ML/MIN/1.73 = 03984) eGFR NON- AMER. (test 107 ML/MIN/1.73 code = 04487) CALC BUN/CREAT (test code = 23 RATIO [...] (test code = 2219) 33 U/L LIPID [id number] 00:00:00 Test Item Value Reference Range Interpretation Comments CHOLESTEROL (test code = 2210) 201 MG/DL TRIGLYCERIDES (test code = 2232) 1014 MG/DL HDL CHOLESTEROL (test code = 25 MG/DL 2220) CALC LDL CHOL (test code = 2237) NOTE MG/DL RISK RATIO LDL/HDL (test code = (NOTE) RATIO 2238) LIPID [id number] 00:00:00 Test Item Value Reference Range Interpretation Comments CHOLESTEROL (test code = 2210) 201 MG/DL TRIGLYCERIDES (test code = 2232) 1014 MG/DL HDL CHOLESTEROL (test code = 25 MG/DL 2220) CALC LDL CHOL (test code = 2237) NOTE MG/DL RISK RATIO LDL/HDL (test code = (NOTE) RATIO 2238) HEMOGLOBIN [id number] 00:00:00 Test Item Value Reference Range Interpretation Comments HEMOGLOBIN A1c (test code = 55712) 8.5 % HEMOGLOBIN [id number] 00:00:00 Test Item Value Reference Range Interpretation Comments HEMOGLOBIN A1c (test code = 05442) 8.5 % HEMOGLOBIN [id number] 00:00:00 Test Item Value Reference Range Interpretation Comments HEMOGLOBIN A1c (test code = 90587) 8.5 % COMPREHENSIVE METABOLIC [id number] 00:00:00 Test Item Value Reference Range Interpretation Comments GLUCOSE (test code = 2217) 131 MG/DL BUN (test code = 2208) 16 MG/DL CREATININE (test code = 2214) 0.71 MG/DL eGFR AMER. (test code 124 ML/MIN/1.73 = 85787) eGFR NON- AMER. (test 107 ML/MIN/1.73 code = 91516) CALC BUN/CREAT (test code = 23 RATIO [...] code = 2219) 33 U/L COMPREHENSIVE METABOLIC [id number] 00:00:00 Test Item Value Reference Range Interpretation Comments GLUCOSE (test code = 2217) 131 MG/DL BUN (test code = 2208) 16 MG/DL CREATININE (test code = 2214) 0.71 MG/DL eGFR AMER. (test code 124 ML/MIN/1.73 = 20289) eGFR NON- AMER. (test 107 ML/MIN/1.73 code = 68794) CALC BUN/CREAT (test code = 23 RATIO [...] (test code = 2219) 33 U/L LIPID [id number] 00:00:00 Test Item Value Reference Range Interpretation Comments CHOLESTEROL (test code = 2210) 201 MG/DL TRIGLYCERIDES (test code = 2232) 1014 MG/DL HDL CHOLESTEROL (test code = 25 MG/DL 2220) CALC LDL CHOL (test code = 2237) NOTE MG/DL RISK RATIO LDL/HDL (test code = (NOTE) RATIO 2238) LIPID [id number] 00:00:00 Test Item Value Reference Range Interpretation Comments CHOLESTEROL (test code = 2210) 201 MG/DL TRIGLYCERIDES (test code = 2232) 1014 MG/DL HDL CHOLESTEROL (test code = 25 MG/DL 2220) CALC LDL CHOL (test code = 2237) NOTE MG/DL RISK RATIO LDL/HDL (test code = (NOTE) RATIO 2238) HEMOGLOBIN [id number] 00:00:00 Test Item Value Reference Range Interpretation Comments HEMOGLOBIN A1c (test code = 98250) 8.5 % HEMOGLOBIN [id number] 00:00:00 Test Item Value Reference Range Interpretation Comments HEMOGLOBIN A1c (test code = 85086) 8.5 % HEMOGLOBIN [id number] 00:00:00 Test Item Value Reference Range Interpretation Comments HEMOGLOBIN A1c (test code = 53653) 8.5 % COMPREHENSIVE METABOLIC [id number] 00:00:00 Test Item Value Reference Range Interpretation Comments GLUCOSE (test code = 2217) 131 MG/DL BUN (test code = 2208) 16 MG/DL CREATININE (test code = 2214) 0.71 MG/DL eGFR AMER. (test code 124 ML/MIN/1.73 = 84675) eGFR NON- AMER. (test 107 ML/MIN/1.73 code = 43557) CALC BUN/CREAT (test code = 23 RATIO [...] code = 2219) 33 U/L COMPREHENSIVE METABOLIC [id number] 00:00:00 Test Item Value Reference Range Interpretation Comments GLUCOSE (test code = 2217) 131 MG/DL BUN (test code = 2208) 16 MG/DL CREATININE (test code = 2214) 0.71 MG/DL eGFR AMER. (test code 124 ML/MIN/1.73 = 01003) eGFR NON- AMER. (test 107 ML/MIN/1.73 code = 26462) CALC BUN/CREAT (test code = 23 RATIO [...] (test code = 2219) 33 U/L LIPID [id number] 00:00:00 Test Item Value Reference Range Interpretation Comments CHOLESTEROL (test code = 2210) 201 MG/DL TRIGLYCERIDES (test code = 2232) 1014 MG/DL HDL CHOLESTEROL (test code = 25 MG/DL 2220) CALC LDL CHOL (test code = 2237) NOTE MG/DL RISK RATIO LDL/HDL (test code = (NOTE) RATIO 2238) LIPID [id number] 00:00:00 Test Item Value Reference Range Interpretation Comments CHOLESTEROL (test code = 2210) 201 MG/DL TRIGLYCERIDES (test code = 2232) 1014 MG/DL HDL CHOLESTEROL (test code = 25 MG/DL 2220) CALC LDL CHOL (test code = 2237) NOTE MG/DL RISK RATIO LDL/HDL (test code = (NOTE) RATIO 2238) HEMOGLOBIN [id number] 00:00:00 Test Item Value Reference Range Interpretation Comments HEMOGLOBIN A1c (test code = 36941) 8.5 % HEMOGLOBIN [id number] 00:00:00 Test Item Value Reference Range Interpretation Comments HEMOGLOBIN A1c (test code = 75473) 8.5 % HEMOGLOBIN [id number] 00:00:00 Test Item Value Reference Range Interpretation Comments HEMOGLOBIN A1c (test code = 64485) 8.5 % COMPREHENSIVE METABOLIC [id number] 00:00:00 Test Item Value Reference Range Interpretation Comments GLUCOSE (test code = 2217) 131 MG/DL BUN (test code = 2208) 16 MG/DL CREATININE (test code = 2214) 0.71 MG/DL eGFR AMER. (test code 124 ML/MIN/1.73 = 14383) eGFR NON- AMER. (test 107 ML/MIN/1.73 code = 38224) CALC BUN/CREAT (test code = 23 RATIO [...] code = 2219) 33 U/L COMPREHENSIVE METABOLIC [id number] 00:00:00 Test Item Value Reference Range Interpretation Comments GLUCOSE (test code = 2217) 131 MG/DL BUN (test code = 2208) 16 MG/DL CREATININE (test code = 2214) 0.71 MG/DL eGFR AMER. (test code 124 ML/MIN/1.73 = 80874) eGFR NON- AMER. (test 107 ML/MIN/1.73 code = 50605) CALC BUN/CREAT (test code = 23 RATIO [...] (test code = 2219) 33 U/L LIPID [id number] 00:00:00 Test Item Value Reference Range Interpretation Comments CHOLESTEROL (test code = 2210) 201 MG/DL TRIGLYCERIDES (test code = 2232) 1014 MG/DL HDL CHOLESTEROL (test code = 25 MG/DL 2220) CALC LDL CHOL (test code = 2237) NOTE MG/DL RISK RATIO LDL/HDL (test code = (NOTE) RATIO 2238) LIPID [id number] 00:00:00 Test Item Value Reference Range Interpretation Comments CHOLESTEROL (test code = 2210) 201 MG/DL TRIGLYCERIDES (test code = 2232) 1014 MG/DL HDL CHOLESTEROL (test code = 25 MG/DL 2220) CALC LDL CHOL (test code = 2237) NOTE MG/DL RISK RATIO LDL/HDL (test code = (NOTE) RATIO 2238) HEMOGLOBIN [id number] 00:00:00 Test Item Value Reference Range Interpretation Comments HEMOGLOBIN A1c (test code = 28749) 8.5 % HEMOGLOBIN [id number] 00:00:00 Test Item Value Reference Range Interpretation Comments HEMOGLOBIN A1c (test code = 32357) 8.5 % HEMOGLOBIN [id number] 00:00:00 Test Item Value Reference Range Interpretation Comments HEMOGLOBIN A1c (test code = 25411) 8.5 % COMPREHENSIVE METABOLIC [id number] 00:00:00 Test Item Value Reference Range Interpretation Comments GLUCOSE (test code = 2217) 131 MG/DL BUN (test code = 2208) 16 MG/DL CREATININE (test code = 2214) 0.71 MG/DL eGFR AMER. (test code 124 ML/MIN/1.73 = 51022) eGFR NON- AMER. (test 107 ML/MIN/1.73 code = 72173) CALC BUN/CREAT (test code = 23 RATIO [...] code = 2219) 33 U/L COMPREHENSIVE METABOLIC [id number] 00:00:00 Test Item Value Reference Range Interpretation Comments GLUCOSE (test code = 2217) 131 MG/DL BUN (test code = 2208) 16 MG/DL CREATININE (test code = 2214) 0.71 MG/DL eGFR AMER. (test code 124 ML/MIN/1.73 = 72795) eGFR NON- AMER. (test 107 ML/MIN/1.73 code = 70672) CALC BUN/CREAT (test code = 23 RATIO [...] (test code = 2219) 33 U/L LIPID [id number] 00:00:00 Test Item Value Reference Range Interpretation Comments CHOLESTEROL (test code = 2210) 201 MG/DL TRIGLYCERIDES (test code = 2232) 1014 MG/DL HDL CHOLESTEROL (test code = 25 MG/DL 2220) CALC LDL CHOL (test code = 2237) NOTE MG/DL RISK RATIO LDL/HDL (test code = (NOTE) RATIO 2238) LIPID [id number] 00:00:00 Test Item Value Reference Range Interpretation Comments CHOLESTEROL (test code = 2210) 201 MG/DL TRIGLYCERIDES (test code = 2232) 1014 MG/DL HDL CHOLESTEROL (test code = 25 MG/DL 2220) CALC LDL CHOL (test code = 2237) NOTE MG/DL RISK RATIO LDL/HDL (test code = (NOTE) RATIO 2238) HEMOGLOBIN [id number] 00:00:00 Test Item Value Reference Range Interpretation Comments HEMOGLOBIN A1c (test code = 50761) 8.5 % HEMOGLOBIN [id number] 00:00:00 Test Item Value Reference Range Interpretation Comments HEMOGLOBIN A1c (test code = 77938) 8.5 % COMPREHENSIVE METABOLIC [id number] 00:00:00 Test Item Value Reference Range Interpretation Comments GLUCOSE (test code = 2217) 131 MG/DL BUN (test code = 2208) 16 MG/DL CREATININE (test code = 2214) 0.71 MG/DL eGFR AMER. (test code 124 ML/MIN/1.73 = 96710) eGFR NON- AMER. (test 107 ML/MIN/1.73 code = 45392) CALC BUN/CREAT (test code = 23 RATIO [...] (test code = 2219) 33 U/L LIPID [id number] 00:00:00 Test Item Value Reference Range Interpretation Comments CHOLESTEROL (test code = 2210) 201 MG/DL TRIGLYCERIDES (test code = 2232) 1014 MG/DL HDL CHOLESTEROL (test code = 25 MG/DL 0) CALC LDL CHOL (test code = 2237) NOTE MG/DL RISK RATIO LDL/HDL (test code = (NOTE) RATIO 2238) HEMOGLOBIN [id number] 00:00:00 Test Item Value Reference Range Interpretation Comments HEMOGLOBIN A1c (test code = 26903) 8.5 % HEMOGLOBIN [id number] 00:00:00 Test Item Value Reference Range Interpretation Comments HEMOGLOBIN A1c (test code = 52891) 8.5 % HEMOGLOBIN [id number] 00:00:00 Test Item Value Reference Range Interpretation Comments HEMOGLOBIN A1c (test code = 66219) 8.5 % COMPREHENSIVE METABOLIC [id number] 00:00:00 Test Item Value Reference Range Interpretation Comments GLUCOSE (test code = 2217) 131 MG/DL BUN (test code = 2208) 16 MG/DL CREATININE (test code = 2214) 0.71 MG/DL eGFR AMER. (test code 124 ML/MIN/1.73 = 19326) eGFR NON- AMER. (test 107 ML/MIN/1.73 code = 96378) CALC BUN/CREAT (test code = 23 RATIO [...] code = 2219) 33 U/L COMPREHENSIVE METABOLIC [id number] 00:00:00 Test Item Value Reference Range Interpretation Comments GLUCOSE (test code = 2217) 131 MG/DL BUN (test code = 2208) 16 MG/DL CREATININE (test code = 2214) 0.71 MG/DL eGFR AMER. (test code 124 ML/MIN/1.73 = 09479) eGFR NON- AMER. (test 107 ML/MIN/1.73 code = 07664) CALC BUN/CREAT (test code = 23 RATIO [...] (test code = 2219) 33 U/L LIPID [id number] 00:00:00 Test Item Value Reference Range Interpretation Comments CHOLESTEROL (test code = 2210) 201 MG/DL TRIGLYCERIDES (test code = 2232) 1014 MG/DL HDL CHOLESTEROL (test code = 25 MG/DL 2220) CALC LDL CHOL (test code = 2237) NOTE MG/DL RISK RATIO LDL/HDL (test code = (NOTE) RATIO 2238) LIPID [id number] 00:00:00 Test Item Value Reference Range Interpretation Comments CHOLESTEROL (test code = 2210) 201 MG/DL TRIGLYCERIDES (test code = 2232) 1014 MG/DL HDL CHOLESTEROL (test code = 25 MG/DL 2220) CALC LDL CHOL (test code = 2237) NOTE MG/DL RISK RATIO LDL/HDL (test code = (NOTE) RATIO 2238) HEMOGLOBIN [id number] 00:00:00 Test Item Value Reference Range Interpretation Comments HEMOGLOBIN A1c (test code = 39251) 8.5 % HEMOGLOBIN [id number] 00:00:00 Test Item Value Reference Range Interpretation Comments HEMOGLOBIN A1c (test code = 83532) 8.5 % HEMOGLOBIN [id number] 00:00:00 Test Item Value Reference Range Interpretation Comments HEMOGLOBIN A1c (test code = 29166) 8.5 % COMPREHENSIVE METABOLIC [id number] 00:00:00 Test Item Value Reference Range Interpretation Comments GLUCOSE (test code = 2217) 131 MG/DL BUN (test code = 2208) 16 MG/DL CREATININE (test code = 2214) 0.71 MG/DL eGFR AMER. (test code 124 ML/MIN/1.73 = 71246) eGFR NON- AMER. (test 107 ML/MIN/1.73 code = 22312) CALC BUN/CREAT (test code = 23 RATIO [...] code = 2219) 33 U/L COMPREHENSIVE METABOLIC [id number] 00:00:00 Test Item Value Reference Range Interpretation Comments GLUCOSE (test code = 2217) 131 MG/DL BUN (test code = 2208) 16 MG/DL CREATININE (test code = 2214) 0.71 MG/DL eGFR AMER. (test code 124 ML/MIN/1.73 = 80803) eGFR NON- AMER. (test 107 ML/MIN/1.73 code = 78427) CALC BUN/CREAT (test code = 23 RATIO [...] (test code = 2219) 33 U/L LIPID [id number] 00:00:00 Test Item Value Reference Range Interpretation Comments CHOLESTEROL (test code = 2210) 201 MG/DL TRIGLYCERIDES (test code = 2232) 1014 MG/DL HDL CHOLESTEROL (test code = 25 MG/DL 2220) CALC LDL CHOL (test code = 2237) NOTE MG/DL RISK RATIO LDL/HDL (test code = (NOTE) RATIO 2238) LIPID [id number] 00:00:00 Test Item Value Reference Range Interpretation Comments CHOLESTEROL (test code = 2210) 201 MG/DL TRIGLYCERIDES (test code = 2232) 1014 MG/DL HDL CHOLESTEROL (test code = 25 MG/DL 2220) CALC LDL CHOL (test code = 2237) NOTE MG/DL RISK RATIO LDL/HDL (test code = (NOTE) RATIO 2238) HEMOGLOBIN [id number] 00:00:00 Test Item Value Reference Range Interpretation Comments HEMOGLOBIN A1c (test code = 90751) 8.5 % HEMOGLOBIN [id number] 00:00:00 Test Item Value Reference Range Interpretation Comments HEMOGLOBIN A1c (test code = 17327) 8.5 % HEMOGLOBIN [id number] 00:00:00 Test Item Value Reference Range Interpretation Comments HEMOGLOBIN A1c (test code = 08302) 8.5 % COMPREHENSIVE METABOLIC [id number] 00:00:00 Test Item Value Reference Range Interpretation Comments GLUCOSE (test code = 2217) 131 MG/DL BUN (test code = 2208) 16 MG/DL CREATININE (test code = 2214) 0.71 MG/DL eGFR AMER. (test code 124 ML/MIN/1.73 = 88824) eGFR NON- AMER. (test 107 ML/MIN/1.73 code = 68078) CALC BUN/CREAT (test code = 23 RATIO [...] code = 2219) 33 U/L COMPREHENSIVE METABOLIC [id number] 00:00:00 Test Item Value Reference Range Interpretation Comments GLUCOSE (test code = 2217) 131 MG/DL BUN (test code = 2208) 16 MG/DL CREATININE (test code = 2214) 0.71 MG/DL eGFR AMER. (test code 124 ML/MIN/1.73 = 26569) eGFR NON- AMER. (test 107 ML/MIN/1.73 code = 73134) CALC BUN/CREAT (test code = 23 RATIO [...] (test code = 2219) 33 U/L LIPID [id number] 00:00:00 Test Item Value Reference Range Interpretation Comments CHOLESTEROL (test code = 2210) 201 MG/DL TRIGLYCERIDES (test code = 2232) 1014 MG/DL HDL CHOLESTEROL (test code = 25 MG/DL 2220) CALC LDL CHOL (test code = 2237) NOTE MG/DL RISK RATIO LDL/HDL (test code = (NOTE) RATIO 2238) LIPID [id number] 00:00:00 Test Item Value Reference Range Interpretation Comments CHOLESTEROL (test code = 2210) 201 MG/DL TRIGLYCERIDES (test code = 2232) 1014 MG/DL HDL CHOLESTEROL (test code = 25 MG/DL 2220) CALC LDL CHOL (test code = 2237) NOTE MG/DL RISK RATIO LDL/HDL (test code = (NOTE) RATIO 2238) CULTURE, HERPES [id number] 00:00:00 Test Item Value Reference Range Interpretation Comments SPECIMEN SOURCE (test code = 60797) LABIA HERPES CULTURE (test code = 3533) NEGATIVE CULTURE, HERPES [id number] 00:00:00 Test Item Value Reference Range Interpretation Comments SPECIMEN SOURCE (test code = 39316) LABIA HERPES CULTURE (test code = 3533) NEGATIVE CULTURE, HERPES [id number] 00:00:00 Test Item Value Reference Range Interpretation Comments SPECIMEN SOURCE (test code = 97460) LABIA HERPES CULTURE (test code = 3533) NEGATIVE CULTURE, HERPES [id number] 00:00:00 Test Item Value Reference Range Interpretation Comments SPECIMEN SOURCE (test code = 33789) LABIA HERPES CULTURE (test code = 3533) NEGATIVE CULTURE, HERPES [id number] 00:00:00 Test Item Value Reference Range Interpretation Comments SPECIMEN SOURCE (test code = 62601) LABIA HERPES CULTURE (test code = 3533) NEGATIVE CULTURE, HERPES [id number] 00:00:00 Test Item Value Reference Range Interpretation Comments SPECIMEN SOURCE (test code = 31074) LABIA HERPES CULTURE (test code = 3533) NEGATIVE CULTURE, HERPES [id number] 00:00:00 Test Item Value Reference Range Interpretation Comments SPECIMEN SOURCE (test code = 23292) LABIA HERPES CULTURE (test code = 3533) NEGATIVE CULTURE, HERPES [id number] 00:00:00 Test Item Value Reference Range Interpretation Comments SPECIMEN SOURCE (test code = 40634) LABIA HERPES CULTURE (test code = 3533) NEGATIVE CULTURE, HERPES [id number] 00:00:00 Test Item Value Reference Range Interpretation Comments SPECIMEN SOURCE (test code = 29715) LABIA HERPES CULTURE (test code = 3533) NEGATIVE CULTURE, HERPES [id number] 00:00:00 Test Item Value Reference Range Interpretation Comments SPECIMEN SOURCE (test code = 47573) LABIA HERPES CULTURE (test code = 3533) NEGATIVE CULTURE, HERPES [id number] 00:00:00 Test Item Value Reference Range Interpretation Comments SPECIMEN SOURCE (test code = 41594) LABIA HERPES CULTURE (test code = 3533) NEGATIVE CULTURE, HERPES [id number] 00:00:00 Test Item Value Reference Range Interpretation Comments SPECIMEN SOURCE (test code = 40997) LABIA HERPES CULTURE (test code = 3533) NEGATIVE CULTURE, HERPES [id number] 00:00:00 Test Item Value Reference Range Interpretation Comments SPECIMEN SOURCE (test code = 44878) LABIA HERPES CULTURE (test code = 3533) NEGATIVE CULTURE, HERPES [id number] 00:00:00 Test Item Value Reference Range Interpretation Comments SPECIMEN SOURCE (test code = 99152) LABIA HERPES CULTURE (test code = 3533) NEGATIVE CULTURE, HERPES [id number] 00:00:00 Test Item Value Reference Range Interpretation Comments SPECIMEN SOURCE (test code = 66053) LABIA HERPES CULTURE (test code = 3533) NEGATIVE CULTURE, HERPES [id number] 00:00:00 Test Item Value Reference Range Interpretation Comments SPECIMEN SOURCE (test code = 74803) LABIA HERPES CULTURE (test code = 3533) NEGATIVE CULTURE, HERPES [id number] 00:00:00 Test Item Value Reference Range Interpretation Comments SPECIMEN SOURCE (test code = 66133) LABIA HERPES CULTURE (test code = 3533) NEGATIVE CULTURE, HERPES [id number] 00:00:00 Test Item Value Reference Range Interpretation Comments SPECIMEN SOURCE (test code = 21060) LABIA HERPES CULTURE (test code = 3533) NEGATIVE CULTURE, HERPES [id number] 00:00:00 Test Item Value Reference Range Interpretation Comments SPECIMEN SOURCE (test code = 61640) LABIA HERPES CULTURE (test code = 3533) NEGATIVE CULTURE, HERPES [id number] 00:00:00 Test Item Value Reference Range Interpretation Comments SPECIMEN SOURCE (test code = 83369) LABIA HERPES CULTURE (test code = 3533) NEGATIVE CULTURE, HERPES [id number] 00:00:00 Test Item Value Reference Range Interpretation Comments SPECIMEN SOURCE (test code = 40494) LABIA HERPES CULTURE (test code = 3533) NEGATIVE VAGINAL PATHOGENS DNA [id number] 00:00:00 Test Item Value Reference Range Interpretation Comments ANDIE SPECIES (test code = 82111) NEGATIVE G. VAGINALIS (test code = 67418) NEGATIVE T. VAGINALIS (test code = 97452) NEGATIVE VAGINAL PATHOGENS DNA [id number] 00:00:00 Test Item Value Reference Range Interpretation Comments ANDIE SPECIES (test code = 55279) NEGATIVE G. VAGINALIS (test code = 42583) NEGATIVE T. VAGINALIS (test code = 79656) NEGATIVE VAGINAL PATHOGENS DNA [id number] 00:00:00 Test Item Value Reference Range Interpretation Comments ANDIE SPECIES (test code = 75802) NEGATIVE G. VAGINALIS (test code = 62381) NEGATIVE T. VAGINALIS (test code = 07677) NEGATIVE VAGINAL PATHOGENS DNA [id number] 00:00:00 Test Item Value Reference Range Interpretation Comments ANDIE SPECIES (test code = 25952) NEGATIVE G. VAGINALIS (test code = 15761) NEGATIVE T. VAGINALIS (test code = 74081) NEGATIVE VAGINAL PATHOGENS DNA [id number] 00:00:00 Test Item Value Reference Range Interpretation Comments ANDIE SPECIES (test code = 70835) NEGATIVE G. VAGINALIS (test code = 66473) NEGATIVE T. VAGINALIS (test code = 90863) NEGATIVE VAGINAL PATHOGENS DNA [id number] 00:00:00 Test Item Value Reference Range Interpretation Comments ANDIE SPECIES (test code = 60467) NEGATIVE G. VAGINALIS (test code = 95538) NEGATIVE T. VAGINALIS (test code = 92202) NEGATIVE VAGINAL PATHOGENS DNA [id number] 00:00:00 Test Item Value Reference Range Interpretation Comments ANDIE SPECIES (test code = 76639) NEGATIVE G. VAGINALIS (test code = 80921) NEGATIVE T. VAGINALIS (test code = 82485) NEGATIVE VAGINAL PATHOGENS DNA [id number] 00:00:00 Test Item Value Reference Range Interpretation Comments ANDIE SPECIES (test code = 38273) NEGATIVE G. VAGINALIS (test code = 93897) NEGATIVE T. VAGINALIS (test code = 61286) NEGATIVE VAGINAL PATHOGENS DNA [id number] 00:00:00 Test Item Value Reference Range Interpretation Comments ANDIE SPECIES (test code = 36024) NEGATIVE G. VAGINALIS (test code = 81603) NEGATIVE T. VAGINALIS (test code = 21208) NEGATIVE VAGINAL PATHOGENS DNA [id number] 00:00:00 Test Item Value Reference Range Interpretation Comments ANDIE SPECIES (test code = 56091) NEGATIVE G. VAGINALIS (test code = 79912) NEGATIVE T. VAGINALIS (test code = 24406) NEGATIVE VAGINAL PATHOGENS DNA [id number] 00:00:00 Test Item Value Reference Range Interpretation Comments ANDIE SPECIES (test code = 21631) NEGATIVE G. VAGINALIS (test code = 18806) NEGATIVE T. VAGINALIS (test code = 82340) NEGATIVE VAGINAL PATHOGENS DNA [id number] 00:00:00 Test Item Value Reference Range Interpretation Comments ANDIE SPECIES (test code = 33492) NEGATIVE G. VAGINALIS (test code = 00235) NEGATIVE T. VAGINALIS (test code = 84548) NEGATIVE VAGINAL PATHOGENS DNA [id number] 00:00:00 Test Item Value Reference Range Interpretation Comments ANDIE SPECIES (test code = 89111) NEGATIVE G. VAGINALIS (test code = 48979) NEGATIVE T. VAGINALIS (test code = 17622) NEGATIVE VAGINAL PATHOGENS DNA [id number] 00:00:00 Test Item Value Reference Range Interpretation Comments ANDIE SPECIES (test code = 79279) NEGATIVE G. VAGINALIS (test code = 56468) NEGATIVE T. VAGINALIS (test code = 95237) NEGATIVE VAGINAL PATHOGENS DNA [id number] 00:00:00 Test Item Value Reference Range Interpretation Comments ANDIE SPECIES (test code = 86159) NEGATIVE G. VAGINALIS (test code = 30943) NEGATIVE T. VAGINALIS (test code = 71107) NEGATIVE VAGINAL PATHOGENS DNA [id number] 00:00:00 Test Item Value Reference Range Interpretation Comments ANDIE SPECIES (test code = 89648) NEGATIVE G. VAGINALIS (test code = 37799) NEGATIVE T. VAGINALIS (test code = 67722) NEGATIVE VAGINAL PATHOGENS DNA [id number] 00:00:00 Test Item Value Reference Range Interpretation Comments ANDIE SPECIES (test code = 23970) NEGATIVE G. VAGINALIS (test code = 60477) NEGATIVE T. VAGINALIS (test code = 60990) NEGATIVE VAGINAL PATHOGENS DNA [id number] 00:00:00 Test Item Value Reference Range Interpretation Comments ANDIE SPECIES (test code = 54065) NEGATIVE G. VAGINALIS (test code = 35215) NEGATIVE T. VAGINALIS (test code = 60618) NEGATIVE VAGINAL PATHOGENS DNA [id number] 00:00:00 Test Item Value Reference Range Interpretation Comments ANDIE SPECIES (test code = 37979) NEGATIVE G. VAGINALIS (test code = 81593) NEGATIVE T. VAGINALIS (test code = 81391) NEGATIVE VAGINAL PATHOGENS DNA [id number] 00:00:00 Test Item Value Reference Range Interpretation Comments ANDIE SPECIES (test code = 21243) NEGATIVE G. VAGINALIS (test code = 74324) NEGATIVE T. VAGINALIS (test code = 19126) NEGATIVE VAGINAL PATHOGENS DNA [id number] 00:00:00 Test Item Value Reference Range Interpretation Comments ANDIE SPECIES (test code = 19721) NEGATIVE G. VAGINALIS (test code = 49837) NEGATIVE T. VAGINALIS (test code = 52109) NEGATIVE COMPREHENSIVE METABOLIC [id number] 00:00:00 Test Item Value Reference Range Interpretation Comments GLUCOSE (test code = 2217) 138 MG/DL BUN (test code = 2208) 13 MG/DL CREATININE (test code = 2214) 0.50 MG/DL eGFR AMER. (test code 141 ML/MIN/1.73 = 87131) eGFR NON- AMER. (test 122 ML/MIN/1.73 code = 39894) CALC BUN/CREAT (test code = 26 RATIO [...] code = 2219) 41 U/L COMPREHENSIVE METABOLIC [id number] 00:00:00 Test Item Value Reference Range Interpretation Comments GLUCOSE (test code = 2217) 138 MG/DL BUN (test code = 2208) 13 MG/DL CREATININE (test code = 2214) 0.50 MG/DL eGFR AMER. (test code 141 ML/MIN/1.73 = 69424) eGFR NON- AMER. (test 122 ML/MIN/1.73 code = 95999) CALC BUN/CREAT (test code = 26 RATIO 2235) SODIUM (test code = 2231) 141 MEQ/L POTASSIUM (test code = 2228) 4.3 MEQ/L CHLORIDE (test code = 2215) 99 MEQ/L CARBON DIOXIDE (test code = 24 MEQ/L 6) CALCIUM (test code = 2209) 9.3 MG/DL [...] (test code = 2219) 41 U/L LIPID [id number] 00:00:00 Test Item Value Reference Range Interpretation Comments CHOLESTEROL (test code = 2210) 359 MG/DL TRIGLYCERIDES (test code = 2232) 1659 MG/DL HDL CHOLESTEROL (test code = 15 MG/DL 2220) CALC LDL CHOL (test code = 2237) NOTE MG/DL RISK RATIO LDL/HDL (test code = (NOTE) RATIO 2238) LIPID [id number] 00:00:00 Test Item Value Reference Range Interpretation Comments CHOLESTEROL (test code = 2210) 359 MG/DL TRIGLYCERIDES (test code = 2232) 1659 MG/DL HDL CHOLESTEROL (test code = 15 MG/DL 2220) CALC LDL CHOL (test code = 2237) NOTE MG/DL RISK RATIO LDL/HDL (test code = (NOTE) RATIO 2238) CBC W/AUTO [id number] 00:00:00 Test Item Value Reference Range Interpretation [...] code = 1015) 287 K/UL CBC W/AUTO [id number] 00:00:00 Test Item Value Reference Range Interpretation [...] code = 1015) 287 K/UL CBC W/AUTO [id number] 00:00:00 Test Item Value Reference Range Interpretation [...] (test code = 1015) 287 K/UL HEMOGLOBIN [id number] 00:00:00 Test Item Value Reference Range Interpretation Comments HEMOGLOBIN A1c (test code = 47077) 9.8 % HEMOGLOBIN [id number] 00:00:00 Test Item Value Reference Range Interpretation Comments HEMOGLOBIN A1c (test code = 09462) 9.8 % HEMOGLOBIN [id number] 00:00:00 Test Item Value Reference Range Interpretation Comments HEMOGLOBIN A1c (test code = 58626) 9.8 % [id number] 00:00:00 Test Item Value Reference Range Interpretation Comments TSH (test code = 2821) 2.110 UIU/ML [id number] 00:00:00 Test Item Value Reference Range Interpretation Comments TSH (test code = 2821) 2.110 UIU/ML [id number] 00:00:00 Test Item Value Reference Range Interpretation Comments TSH (test code = 2821) 2.110 UIU/ML COMPREHENSIVE METABOLIC [id number] 00:00:00 Test Item Value Reference Range Interpretation Comments GLUCOSE (test code = 2217) 138 MG/DL BUN (test code = 2208) 13 MG/DL CREATININE (test code = 2214) 0.50 MG/DL eGFR AMER. (test code 141 ML/MIN/1.73 = 23217) eGFR NON- AMER. (test 122 ML/MIN/1.73 code = 10437) CALC BUN/CREAT (test code = 26 RATIO [...] ALKALINE PHOSPHATASE (test 58 U/L code = 220) AST (test code = 2218) 39 U/L ALT (test code = 2219) 41 U/L COMPREHENSIVE METABOLIC [id number] 00:00:00 Test Item Value Reference Range Interpretation Comments GLUCOSE (test code = 2217) 138 MG/DL BUN (test code = 2208) 13 MG/DL CREATININE (test code = 2214) 0.50 MG/DL eGFR AMER. (test code 141 ML/MIN/1.73 = 72080) eGFR NON- AMER. (test 122 ML/MIN/1.73 code = 23582) CALC BUN/CREAT (test code = 26 RATIO 2235) SODIUM (test code = 2231) 141 MEQ/L POTASSIUM (test code = 2228) 4.3 MEQ/L CHLORIDE (test code = 2215) 99 MEQ/L CARBON DIOXIDE (test code = 24 MEQ/L 2206) CALCIUM (test code = 2209) 9.3 MG/DL PROTEIN, TOTAL (test code = 7.6 G/DL 9) ALBUMIN (test code = 2201) 4.2 G/DL CALC GLOBULIN (test code = 3.4 G/DL 2240) CALC A/G RATIO (test code = 1.2 RATIO 2234) BILIRUBIN, TOTAL (test code = 0.2 MG/DL 2206) ALKALINE PHOSPHATASE (test 58 U/L code = 2204) AST (test code = 2218) 39 U/L ALT (test code = 2219) 41 U/L LIPID [id number] 00:00:00 Test Item Value Reference Range Interpretation Comments CHOLESTEROL (test code = 2210) 359 MG/DL TRIGLYCERIDES (test code = 2232) 1659 MG/DL HDL CHOLESTEROL (test code = 15 MG/DL 2220) CALC LDL CHOL (test code = 2237) NOTE MG/DL RISK RATIO LDL/HDL (test code = (NOTE) RATIO 2238) LIPID [id number] 00:00:00 Test Item Value Reference Range Interpretation Comments CHOLESTEROL (test code = 2210) 359 MG/DL TRIGLYCERIDES (test code = 2232) 1659 MG/DL HDL CHOLESTEROL (test code = 15 MG/DL 2220) CALC LDL CHOL (test code = 2237) NOTE MG/DL RISK RATIO LDL/HDL (test code = (NOTE) RATIO 2238) CBC W/AUTO [id number] 00:00:00 Test Item Value Reference Range Interpretation [...] code = 1015) 287 K/UL CBC W/AUTO [id number] 00:00:00 Test Item Value Reference Range Interpretation [...] code = 1015) 287 K/UL CBC W/AUTO [id number] 00:00:00 Test Item Value Reference Range Interpretation [...] (test code = 1015) 287 K/UL HEMOGLOBIN [id number] 00:00:00 Test Item Value Reference Range Interpretation Comments HEMOGLOBIN A1c (test code = 84540) 9.8 % HEMOGLOBIN [id number] 00:00:00 Test Item Value Reference Range Interpretation Comments HEMOGLOBIN A1c (test code = 80689) 9.8 % HEMOGLOBIN [id number] 00:00:00 Test Item Value Reference Range Interpretation Comments HEMOGLOBIN A1c (test code = 03256) 9.8 % [id number] 00:00:00 Test Item Value Reference Range Interpretation Comments TSH (test code = 2821) 2.110 UIU/ML [id number] 00:00:00 Test Item Value Reference Range Interpretation Comments TSH (test code = 2821) 2.110 UIU/ML [id number] 00:00:00 Test Item Value Reference Range Interpretation Comments TSH (test code = 2821) 2.110 UIU/ML COMPREHENSIVE METABOLIC [id number] 00:00:00 Test Item Value Reference Range Interpretation Comments GLUCOSE (test code = 2217) 138 MG/DL BUN (test code = 2208) 13 MG/DL CREATININE (test code = 2214) 0.50 MG/DL eGFR AMER. (test code 141 ML/MIN/1.73 = 24728) eGFR NON- AMER. (test 122 ML/MIN/1.73 code = 35297) CALC BUN/CREAT (test code = 26 RATIO [...] code = 2219) 41 U/L COMPREHENSIVE METABOLIC [id number] 00:00:00 Test Item Value Reference Range Interpretation Comments GLUCOSE (test code = 2217) 138 MG/DL BUN (test code = 2208) 13 MG/DL CREATININE (test code = 2214) 0.50 MG/DL eGFR AMER. (test code 141 ML/MIN/1.73 = 84452) eGFR NON- AMER. (test 122 ML/MIN/1.73 code = 11186) CALC BUN/CREAT (test code = 26 RATIO [...] (test code = 2219) 41 U/L LIPID [id number] 00:00:00 Test Item Value Reference Range Interpretation Comments CHOLESTEROL (test code = 2210) 359 MG/DL TRIGLYCERIDES (test code = 2232) 1659 MG/DL HDL CHOLESTEROL (test code = 15 MG/DL 2220) CALC LDL CHOL (test code = 2237) NOTE MG/DL RISK RATIO LDL/HDL (test code = (NOTE) RATIO 2238) LIPID [id number] 00:00:00 Test Item Value Reference Range Interpretation Comments CHOLESTEROL (test code = 2210) 359 MG/DL TRIGLYCERIDES (test code = 2232) 1659 MG/DL HDL CHOLESTEROL (test code = 15 MG/DL 2220) CALC LDL CHOL (test code = 2237) NOTE MG/DL RISK RATIO LDL/HDL (test code = (NOTE) RATIO 2238) CBC W/AUTO [id number] 00:00:00 Test Item Value Reference Range Interpretation [...] code = 1015) 287 K/UL CBC W/AUTO [id number] 00:00:00 Test Item Value Reference Range Interpretation [...] code = 1015) 287 K/UL CBC W/AUTO [id number] 00:00:00 Test Item Value Reference Range Interpretation [...] (test code = 1015) 287 K/UL HEMOGLOBIN [id number] 00:00:00 Test Item Value Reference Range Interpretation Comments HEMOGLOBIN A1c (test code = 05009) 9.8 % HEMOGLOBIN [id number] 00:00:00 Test Item Value Reference Range Interpretation Comments HEMOGLOBIN A1c (test code = 57071) 9.8 % HEMOGLOBIN [id number] 00:00:00 Test Item Value Reference Range Interpretation Comments HEMOGLOBIN A1c (test code = 82405) 9.8 % [id number] 00:00:00 Test Item Value Reference Range Interpretation Comments TSH (test code = 2821) 2.110 UIU/ML [id number] 00:00:00 Test Item Value Reference Range Interpretation Comments TSH (test code = 2821) 2.110 UIU/ML [id number] 00:00:00 Test Item Value Reference Range Interpretation Comments TSH (test code = 2821) 2.110 UIU/ML COMPREHENSIVE METABOLIC [id number] 00:00:00 Test Item Value Reference Range Interpretation Comments GLUCOSE (test code = 2217) 138 MG/DL BUN (test code = 2208) 13 MG/DL CREATININE (test code = 2214) 0.50 MG/DL eGFR AMER. (test code 141 ML/MIN/1.73 = 28271) eGFR NON- AMER. (test 122 ML/MIN/1.73 code = 70155) CALC BUN/CREAT (test code = 26 RATIO [...] code = 2219) 41 U/L COMPREHENSIVE METABOLIC [id number] 00:00:00 Test Item Value Reference Range Interpretation Comments GLUCOSE (test code = 2217) 138 MG/DL BUN (test code = 2208) 13 MG/DL CREATININE (test code = 2214) 0.50 MG/DL eGFR AMER. (test code 141 ML/MIN/1.73 = 16780) eGFR NON- AMER. (test 122 ML/MIN/1.73 code = 04211) CALC BUN/CREAT (test code = 26 RATIO [...] (test code = 2219) 41 U/L LIPID [id number] 00:00:00 Test Item Value Reference Range Interpretation Comments CHOLESTEROL (test code = 2210) 359 MG/DL TRIGLYCERIDES (test code = 2232) 1659 MG/DL HDL CHOLESTEROL (test code = 15 MG/DL 2220) CALC LDL CHOL (test code = 2237) NOTE MG/DL RISK RATIO LDL/HDL (test code = (NOTE) RATIO 2238) LIPID [id number] 00:00:00 Test Item Value Reference Range Interpretation Comments CHOLESTEROL (test code = 2210) 359 MG/DL TRIGLYCERIDES (test code = 2232) 1659 MG/DL HDL CHOLESTEROL (test code = 15 MG/DL 2220) CALC LDL CHOL (test code = 2237) NOTE MG/DL RISK RATIO LDL/HDL (test code = (NOTE) RATIO 2238) CBC W/AUTO [id number] 00:00:00 Test Item Value Reference Range Interpretation [...] code = 1015) 287 K/UL CBC W/AUTO [id number] 00:00:00 Test Item Value Reference Range Interpretation [...] code = 1015) 287 K/UL CBC W/AUTO [id number] 00:00:00 Test Item Value Reference Range Interpretation [...] (test code = 1015) 287 K/UL HEMOGLOBIN [id number] 00:00:00 Test Item Value Reference Range Interpretation Comments HEMOGLOBIN A1c (test code = 39687) 9.8 % HEMOGLOBIN [id number] 00:00:00 Test Item Value Reference Range Interpretation Comments HEMOGLOBIN A1c (test code = 83810) 9.8 % HEMOGLOBIN [id number] 00:00:00 Test Item Value Reference Range Interpretation Comments HEMOGLOBIN A1c (test code = 62891) 9.8 % [id number] 00:00:00 Test Item Value Reference Range Interpretation Comments TSH (test code = 2821) 2.110 UIU/ML [id number] 00:00:00 Test Item Value Reference Range Interpretation Comments TSH (test code = 2821) 2.110 UIU/ML [id number] 00:00:00 Test Item Value Reference Range Interpretation Comments TSH (test code = 2821) 2.110 UIU/ML COMPREHENSIVE METABOLIC [id number] 00:00:00 Test Item Value Reference Range Interpretation Comments GLUCOSE (test code = 2217) 138 MG/DL BUN (test code = 2208) 13 MG/DL CREATININE (test code = 2214) 0.50 MG/DL eGFR AMER. (test code 141 ML/MIN/1.73 = 23331) eGFR NON- AMER. (test 122 ML/MIN/1.73 code = 44908) CALC BUN/CREAT (test code = 26 RATIO [...] code = 2219) 41 U/L COMPREHENSIVE METABOLIC [id number] 00:00:00 Test Item Value Reference Range Interpretation Comments GLUCOSE (test code = 2217) 138 MG/DL BUN (test code = 2208) 13 MG/DL CREATININE (test code = 2214) 0.50 MG/DL eGFR AMER. (test code 141 ML/MIN/1.73 = 21016) eGFR NON- AMER. (test 122 ML/MIN/1.73 code = 17016) CALC BUN/CREAT (test code = 26 RATIO [...] (test code = 2219) 41 U/L LIPID [id number] 00:00:00 Test Item Value Reference Range Interpretation Comments CHOLESTEROL (test code = 2210) 359 MG/DL TRIGLYCERIDES (test code = 2232) 1659 MG/DL HDL CHOLESTEROL (test code = 15 MG/DL 2220) CALC LDL CHOL (test code = 2237) NOTE MG/DL RISK RATIO LDL/HDL (test code = (NOTE) RATIO 2238) LIPID [id number] 00:00:00 Test Item Value Reference Range Interpretation Comments CHOLESTEROL (test code = 2210) 359 MG/DL TRIGLYCERIDES (test code = 2232) 1659 MG/DL HDL CHOLESTEROL (test code = 15 MG/DL 2220) CALC LDL CHOL (test code = 2237) NOTE MG/DL RISK RATIO LDL/HDL (test code = (NOTE) RATIO 2238) CBC W/AUTO [id number] 00:00:00 Test Item Value Reference Range Interpretation [...] code = 1015) 287 K/UL CBC W/AUTO [id number] 00:00:00 Test Item Value Reference Range Interpretation [...] code = 1015) 287 K/UL CBC W/AUTO [id number] 00:00:00 Test Item Value Reference Range Interpretation [...] (test code = 1015) 287 K/UL HEMOGLOBIN [id number] 00:00:00 Test Item Value Reference Range Interpretation Comments HEMOGLOBIN A1c (test code = 95541) 9.8 % HEMOGLOBIN [id number] 00:00:00 Test Item Value Reference Range Interpretation Comments HEMOGLOBIN A1c (test code = 78953) 9.8 % HEMOGLOBIN [id number] 00:00:00 Test Item Value Reference Range Interpretation Comments HEMOGLOBIN A1c (test code = 08689) 9.8 % [id number] 00:00:00 Test Item Value Reference Range Interpretation Comments TSH (test code = 2821) 2.110 UIU/ML [id number] 00:00:00 Test Item Value Reference Range Interpretation Comments TSH (test code = 2821) 2.110 UIU/ML [id number] 00:00:00 Test Item Value Reference Range Interpretation Comments TSH (test code = 2821) 2.110 UIU/ML COMPREHENSIVE METABOLIC [id number] 00:00:00 Test Item Value Reference Range Interpretation Comments GLUCOSE (test code = 2217) 138 MG/DL BUN (test code = 2208) 13 MG/DL CREATININE (test code = 2214) 0.50 MG/DL eGFR AMER. (test code 141 ML/MIN/1.73 = 55518) eGFR NON- AMER. (test 122 ML/MIN/1.73 code = 04440) CALC BUN/CREAT (test code = 26 RATIO [...] code = 2219) 41 U/L COMPREHENSIVE METABOLIC [id number] 00:00:00 Test Item Value Reference Range Interpretation Comments GLUCOSE (test code = 2217) 138 MG/DL BUN (test code = 2208) 13 MG/DL CREATININE (test code = 2214) 0.50 MG/DL eGFR AMER. (test code 141 ML/MIN/1.73 = 50107) eGFR NON- AMER. (test 122 ML/MIN/1.73 code = 60079) CALC BUN/CREAT (test code = 26 RATIO [...] (test code = 2219) 41 U/L LIPID [id number] 00:00:00 Test Item Value Reference Range Interpretation Comments CHOLESTEROL (test code = 2210) 359 MG/DL TRIGLYCERIDES (test code = 2232) 1659 MG/DL HDL CHOLESTEROL (test code = 15 MG/DL 2220) CALC LDL CHOL (test code = 2237) NOTE MG/DL RISK RATIO LDL/HDL (test code = (NOTE) RATIO 2238) LIPID [id number] 00:00:00 Test Item Value Reference Range Interpretation Comments CHOLESTEROL (test code = 2210) 359 MG/DL TRIGLYCERIDES (test code = 2232) 1659 MG/DL HDL CHOLESTEROL (test code = 15 MG/DL 2220) CALC LDL CHOL (test code = 2237) NOTE MG/DL RISK RATIO LDL/HDL (test code = (NOTE) RATIO 2238) CBC W/AUTO [id number] 00:00:00 Test Item Value Reference Range Interpretation [...] code = 1015) 287 K/UL CBC W/AUTO [id number] 00:00:00 Test Item Value Reference Range Interpretation [...] code = 1015) 287 K/UL CBC W/AUTO [id number] 00:00:00 Test Item Value Reference Range Interpretation [...] (test code = 1015) 287 K/UL HEMOGLOBIN [id number] 00:00:00 Test Item Value Reference Range Interpretation Comments HEMOGLOBIN A1c (test code = 85096) 9.8 % HEMOGLOBIN [id number] 00:00:00 Test Item Value Reference Range Interpretation Comments HEMOGLOBIN A1c (test code = 47472) 9.8 % HEMOGLOBIN [id number] 00:00:00 Test Item Value Reference Range Interpretation Comments HEMOGLOBIN A1c (test code = 34261) 9.8 % [id number] 00:00:00 Test Item Value Reference Range Interpretation Comments TSH (test code = 2821) 2.110 UIU/ML [id number] 00:00:00 Test Item Value Reference Range Interpretation Comments TSH (test code = 2821) 2.110 UIU/ML [id number] 00:00:00 Test Item Value Reference Range Interpretation Comments TSH (test code = 2821) 2.110 UIU/ML COMPREHENSIVE METABOLIC [id number] 00:00:00 Test Item Value Reference Range Interpretation Comments GLUCOSE (test code = 2217) 138 MG/DL BUN (test code = 2208) 13 MG/DL CREATININE (test code = 2214) 0.50 MG/DL eGFR AMER. (test code 141 ML/MIN/1.73 = 05261) eGFR NON- AMER. (test 122 ML/MIN/1.73 code = 49144) CALC BUN/CREAT (test code = 26 RATIO [...] code = 2219) 41 U/L COMPREHENSIVE METABOLIC [id number] 00:00:00 Test Item Value Reference Range Interpretation Comments GLUCOSE (test code = 2217) 138 MG/DL BUN (test code = 2208) 13 MG/DL CREATININE (test code = 2214) 0.50 MG/DL eGFR AMER. (test code 141 ML/MIN/1.73 = 76247) eGFR NON- AMER. (test 122 ML/MIN/1.73 code = 06534) CALC BUN/CREAT (test code = 26 RATIO [...] (test code = 2219) 41 U/L LIPID [id number] 00:00:00 Test Item Value Reference Range Interpretation Comments CHOLESTEROL (test code = 2210) 359 MG/DL TRIGLYCERIDES (test code = 2232) 1659 MG/DL HDL CHOLESTEROL (test code = 15 MG/DL 2220) CALC LDL CHOL (test code = 2237) NOTE MG/DL RISK RATIO LDL/HDL (test code = (NOTE) RATIO 2238) LIPID [id number] 00:00:00 Test Item Value Reference Range Interpretation Comments CHOLESTEROL (test code = 2210) 359 MG/DL TRIGLYCERIDES (test code = 2232) 1659 MG/DL HDL CHOLESTEROL (test code = 15 MG/DL 2220) CALC LDL CHOL (test code = 2237) NOTE MG/DL RISK RATIO LDL/HDL (test code = (NOTE) RATIO 2238) CBC W/AUTO [id number] 00:00:00 Test Item Value Reference Range Interpretation [...] code = 1015) 287 K/UL CBC W/AUTO [id number] 00:00:00 Test Item Value Reference Range Interpretation [...] code = 1015) 287 K/UL CBC W/AUTO [id number] 00:00:00 Test Item Value Reference Range Interpretation [...] (test code = 1015) 287 K/UL HEMOGLOBIN [id number] 00:00:00 Test Item Value Reference Range Interpretation Comments HEMOGLOBIN A1c (test code = 21698) 9.8 % HEMOGLOBIN [id number] 00:00:00 Test Item Value Reference Range Interpretation Comments HEMOGLOBIN A1c (test code = 03821) 9.8 % HEMOGLOBIN [id number] 00:00:00 Test Item Value Reference Range Interpretation Comments HEMOGLOBIN A1c (test code = 05711) 9.8 % [id number] 00:00:00 Test Item Value Reference Range Interpretation Comments TSH (test code = 2821) 2.110 UIU/ML [id number] 00:00:00 Test Item Value Reference Range Interpretation Comments TSH (test code = 2821) 2.110 UIU/ML [id number] 00:00:00 Test Item Value Reference Range Interpretation Comments TSH (test code = 2821) 2.110 UIU/ML COMPREHENSIVE METABOLIC [id number] 00:00:00 Test Item Value Reference Range Interpretation Comments GLUCOSE (test code = 2217) 138 MG/DL BUN (test code = 2208) 13 MG/DL CREATININE (test code = 2214) 0.50 MG/DL eGFR AMER. (test code 141 ML/MIN/1.73 = 22825) eGFR NON- AMER. (test 122 ML/MIN/1.73 code = 09834) CALC BUN/CREAT (test code = 26 RATIO [...] (test code = 2219) 41 U/L LIPID [id number] 00:00:00 Test Item Value Reference Range Interpretation Comments CHOLESTEROL (test code = 2210) 359 MG/DL TRIGLYCERIDES (test code = 2232) 1659 MG/DL HDL CHOLESTEROL (test code = 15 MG/DL 0) CALC LDL CHOL (test code = 2237) NOTE MG/DL RISK RATIO LDL/HDL (test code = (NOTE) RATIO 2238) CBC W/AUTO [id number] 00:00:00 Test Item Value Reference Range Interpretation [...] code = 1015) 287 K/UL CBC W/AUTO [id number] 00:00:00 Test Item Value Reference Range Interpretation [...] (test code = 1015) 287 K/UL HEMOGLOBIN [id number] 00:00:00 Test Item Value Reference Range Interpretation Comments HEMOGLOBIN A1c (test code = 55809) 9.8 % HEMOGLOBIN [id number] 00:00:00 Test Item Value Reference Range Interpretation Comments HEMOGLOBIN A1c (test code = 36259) 9.8 % COMPREHENSIVE METABOLIC [id number] 00:00:00 Test Item Value Reference Range Interpretation Comments GLUCOSE (test code = 2217) 138 MG/DL BUN (test code = 2208) 13 MG/DL CREATININE (test code = 2214) 0.50 MG/DL eGFR AMER. (test code 141 ML/MIN/1.73 = 48618) eGFR NON- AMER. (test 122 ML/MIN/1.73 code = 02145) CALC BUN/CREAT (test code = 26 RATIO 2235) SODIUM (test code = 2231) 141 MEQ/L POTASSIUM (test code = 2228) 4.3 MEQ/L CHLORIDE (test code = 2215) 99 MEQ/L CARBON DIOXIDE (test code = 24 MEQ/L 6) CALCIUM (test code = 2209) 9.3 MG/DL [...] code = 2219) 41 U/L COMPREHENSIVE METABOLIC [id number] 00:00:00 Test Item Value Reference Range Interpretation Comments GLUCOSE (test code = 2217) 138 MG/DL BUN (test code = 2208) 13 MG/DL CREATININE (test code = 2214) 0.50 MG/DL eGFR AMER. (test code 141 ML/MIN/1.73 = 69594) eGFR NON- AMER. (test 122 ML/MIN/1.73 code = 44957) CALC BUN/CREAT (test code = 26 RATIO [...] (test code = 2219) 41 U/L LIPID [id number] 00:00:00 Test Item Value Reference Range Interpretation Comments CHOLESTEROL (test code = 2210) 359 MG/DL TRIGLYCERIDES (test code = 2232) 1659 MG/DL HDL CHOLESTEROL (test code = 15 MG/DL 2220) CALC LDL CHOL (test code = 2237) NOTE MG/DL RISK RATIO LDL/HDL (test code = (NOTE) RATIO 2238) LIPID [id number] 00:00:00 Test Item Value Reference Range Interpretation Comments CHOLESTEROL (test code = 2210) 359 MG/DL TRIGLYCERIDES (test code = 2232) 1659 MG/DL HDL CHOLESTEROL (test code = 15 MG/DL 2220) CALC LDL CHOL (test code = 2237) NOTE MG/DL RISK RATIO LDL/HDL (test code = (NOTE) RATIO 2238) [id number] 00:00:00 Test Item Value Reference Range Interpretation Comments TSH (test code = 2821) 2.110 UIU/ML CBC W/AUTO [id number] 00:00:00 Test Item Value Reference Range Interpretation [...] code = 1015) 287 K/UL CBC W/AUTO [id number] 00:00:00 Test Item Value Reference Range Interpretation [...] code = 1015) 287 K/UL CBC W/AUTO [id number] 00:00:00 Test Item Value Reference Range Interpretation [...] (test code = 1015) 287 K/UL HEMOGLOBIN [id number] 00:00:00 Test Item Value Reference Range Interpretation Comments HEMOGLOBIN A1c (test code = 93918) 9.8 % HEMOGLOBIN [id number] 00:00:00 Test Item Value Reference Range Interpretation Comments HEMOGLOBIN A1c (test code = 42832) 9.8 % HEMOGLOBIN [id number] 00:00:00 Test Item Value Reference Range Interpretation Comments HEMOGLOBIN A1c (test code = 46289) 9.8 % [id number] 00:00:00 Test Item Value Reference Range Interpretation Comments TSH (test code = 2821) 2.110 UIU/ML [id number] 00:00:00 Test Item Value Reference Range Interpretation Comments TSH (test code = 2821) 2.110 UIU/ML [id number] 00:00:00 Test Item Value Reference Range Interpretation Comments TSH (test code = 2821) 2.110 UIU/ML [id number] 00:00:00 Test Item Value Reference Range Interpretation Comments TSH (test code = 2821) 2.110 UIU/ML COMPREHENSIVE METABOLIC [id number] 00:00:00 Test Item Value Reference Range Interpretation Comments GLUCOSE (test code = 2217) 138 MG/DL BUN (test code = 2208) 13 MG/DL CREATININE (test code = 2214) 0.50 MG/DL eGFR AMER. (test code 141 ML/MIN/1.73 = 19277) eGFR NON- AMER. (test 122 ML/MIN/1.73 code = 20135) CALC BUN/CREAT (test code = 26 RATIO [...] code = 2219) 41 U/L COMPREHENSIVE METABOLIC [id number] 00:00:00 Test Item Value Reference Range Interpretation Comments GLUCOSE (test code = 2217) 138 MG/DL BUN (test code = 2208) 13 MG/DL CREATININE (test code = 2214) 0.50 MG/DL eGFR AMER. (test code 141 ML/MIN/1.73 = 13770) eGFR NON- AMER. (test 122 ML/MIN/1.73 code = 00918) CALC BUN/CREAT (test code = 26 RATIO [...] (test code = 2219) 41 U/L LIPID [id number] 00:00:00 Test Item Value Reference Range Interpretation Comments CHOLESTEROL (test code = 2210) 359 MG/DL TRIGLYCERIDES (test code = 2232) 1659 MG/DL HDL CHOLESTEROL (test code = 15 MG/DL 2220) CALC LDL CHOL (test code = 2237) NOTE MG/DL RISK RATIO LDL/HDL (test code = (NOTE) RATIO 2238) LIPID [id number] 00:00:00 Test Item Value Reference Range Interpretation Comments CHOLESTEROL (test code = 2210) 359 MG/DL TRIGLYCERIDES (test code = 2232) 1659 MG/DL HDL CHOLESTEROL (test code = 15 MG/DL 2220) CALC LDL CHOL (test code = 2237) NOTE MG/DL RISK RATIO LDL/HDL (test code = (NOTE) RATIO 2238) CBC W/AUTO [id number] 00:00:00 Test Item Value Reference Range Interpretation [...] code = 1015) 287 K/UL CBC W/AUTO [id number] 00:00:00 Test Item Value Reference Range Interpretation [...] code = 1015) 287 K/UL CBC W/AUTO [id number] 00:00:00 Test Item Value Reference Range Interpretation [...] (test code = 1015) 287 K/UL HEMOGLOBIN [id number] 00:00:00 Test Item Value Reference Range Interpretation Comments HEMOGLOBIN A1c (test code = 87830) 9.8 % HEMOGLOBIN [id number] 00:00:00 Test Item Value Reference Range Interpretation Comments HEMOGLOBIN A1c (test code = 63169) 9.8 % HEMOGLOBIN [id number] 00:00:00 Test Item Value Reference Range Interpretation Comments HEMOGLOBIN A1c (test code = 40102) 9.8 % [id number] 00:00:00 Test Item Value Reference Range Interpretation Comments TSH (test code = 2821) 2.110 UIU/ML [id number] 00:00:00 Test Item Value Reference Range Interpretation Comments TSH (test code = 2821) 2.110 UIU/ML [id number] 00:00:00 Test Item Value Reference Range Interpretation Comments TSH (test code = 2821) 2.110 UIU/ML COMPREHENSIVE METABOLIC [id number] 00:00:00 Test Item Value Reference Range Interpretation Comments GLUCOSE (test code = 2217) 138 MG/DL BUN (test code = 2208) 13 MG/DL CREATININE (test code = 2214) 0.50 MG/DL eGFR AMER. (test code 141 ML/MIN/1.73 = 37568) eGFR NON- AMER. (test 122 ML/MIN/1.73 code = 94256) CALC BUN/CREAT (test code = 26 RATIO [...] code = 2219) 41 U/L COMPREHENSIVE METABOLIC [id number] 00:00:00 Test Item Value Reference Range Interpretation Comments GLUCOSE (test code = 2217) 138 MG/DL BUN (test code = 2208) 13 MG/DL CREATININE (test code = 2214) 0.50 MG/DL eGFR AMER. (test code 141 ML/MIN/1.73 = 97586) eGFR NON- AMER. (test 122 ML/MIN/1.73 code = 83299) CALC BUN/CREAT (test code = 26 RATIO [...] (test code = 2219) 41 U/L LIPID [id number] 00:00:00 Test Item Value Reference Range Interpretation Comments CHOLESTEROL (test code = 2210) 359 MG/DL TRIGLYCERIDES (test code = 2232) 1659 MG/DL HDL CHOLESTEROL (test code = 15 MG/DL 2220) CALC LDL CHOL (test code = 2237) NOTE MG/DL RISK RATIO LDL/HDL (test code = (NOTE) RATIO 2238) LIPID [id number] 00:00:00 Test Item Value Reference Range Interpretation Comments CHOLESTEROL (test code = 2210) 359 MG/DL TRIGLYCERIDES (test code = 2232) 1659 MG/DL HDL CHOLESTEROL (test code = 15 MG/DL 2220) CALC LDL CHOL (test code = 2237) NOTE MG/DL RISK RATIO LDL/HDL (test code = (NOTE) RATIO 2238) CBC W/AUTO [id number] 00:00:00 Test Item Value Reference Range Interpretation [...] code = 1015) 287 K/UL CBC W/AUTO [id number] 00:00:00 Test Item Value Reference Range Interpretation [...] code = 1015) 287 K/UL CBC W/AUTO [id number] 00:00:00 Test Item Value Reference Range Interpretation [...] (test code = 1015) 287 K/UL HEMOGLOBIN [id number] 00:00:00 Test Item Value Reference Range Interpretation Comments HEMOGLOBIN A1c (test code = 58872) 9.8 % HEMOGLOBIN [id number] 00:00:00 Test Item Value Reference Range Interpretation Comments HEMOGLOBIN A1c (test code = 33614) 9.8 % HEMOGLOBIN [id number] 00:00:00 Test Item Value Reference Range Interpretation Comments HEMOGLOBIN A1c (test code = 50933) 9.8 % [id number] 00:00:00 Test Item Value Reference Range Interpretation Comments TSH (test code = 2821) 2.110 UIU/ML [id number] 00:00:00 Test Item Value Reference Range Interpretation Comments TSH (test code = 2821) 2.110 UIU/ML [id number] 00:00:00 Test Item Value Reference Range Interpretation Comments TSH (test code = 2821) 2.110 UIU/ML LIPID [id number] 00:00:00 Test Item Value Reference Range Interpretation Comments CHOLESTEROL (test code = 2210) 195 MG/DL TRIGLYCERIDES (test code = 2232) 505 MG/DL HDL CHOLESTEROL (test code = 35 MG/DL 2220) CALC LDL CHOL (test code = 2237) NOTE MG/DL RISK RATIO LDL/HDL (test code = (NOTE) RATIO 2238) LIPID [id number] 00:00:00 Test Item Value Reference Range Interpretation [...] (test code = 2821) 2.000 UIU/ML LIPID [id number] 00:00:00 Test Item Value Reference Range Interpretation Comments CHOLESTEROL (test code = 2210) 195 MG/DL TRIGLYCERIDES (test code = 2232) 505 MG/DL HDL CHOLESTEROL (test code = 35 MG/DL 2220) CALC LDL CHOL (test code = 2237) NOTE MG/DL RISK RATIO LDL/HDL (test code = (NOTE) RATIO 2238) LIPID [id number] 00:00:00 Test Item Value Reference Range Interpretation [...] (test code = 2821) 2.000 UIU/ML LIPID [id number] 00:00:00 Test Item Value Reference Range Interpretation Comments CHOLESTEROL (test code = 2210) 195 MG/DL TRIGLYCERIDES (test code = 2232) 505 MG/DL HDL CHOLESTEROL (test code = 35 MG/DL 2220) CALC LDL CHOL (test code = 2237) NOTE MG/DL RISK RATIO LDL/HDL (test code = (NOTE) RATIO 2238) LIPID [id number] 00:00:00 Test Item Value Reference Range Interpretation [...] (test code = 2821) 2.000 UIU/ML LIPID [id number] 00:00:00 Test Item Value Reference Range Interpretation Comments CHOLESTEROL (test code = 2210) 195 MG/DL TRIGLYCERIDES (test code = 2232) 505 MG/DL HDL CHOLESTEROL (test code = 35 MG/DL 2220) CALC LDL CHOL (test code = 2237) NOTE MG/DL RISK RATIO LDL/HDL (test code = (NOTE) RATIO 2238) LIPID [id number] 00:00:00 Test Item Value Reference Range Interpretation [...] (test code = 2821) 2.000 UIU/ML LIPID [id number] 00:00:00 Test Item Value Reference Range Interpretation Comments CHOLESTEROL (test code = 2210) 195 MG/DL TRIGLYCERIDES (test code = 2232) 505 MG/DL HDL CHOLESTEROL (test code = 35 MG/DL 2220) CALC LDL CHOL (test code = 2237) NOTE MG/DL RISK RATIO LDL/HDL (test code = (NOTE) RATIO 2238) LIPID [id number] 00:00:00 Test Item Value Reference Range Interpretation [...] (test code = 2821) 2.000 UIU/ML LIPID [id number] 00:00:00 Test Item Value Reference Range Interpretation Comments CHOLESTEROL (test code = 2210) 195 MG/DL TRIGLYCERIDES (test code = 2232) 505 MG/DL HDL CHOLESTEROL (test code = 35 MG/DL 2220) CALC LDL CHOL (test code = 2237) NOTE MG/DL RISK RATIO LDL/HDL (test code = (NOTE) RATIO 2238) LIPID [id number] 00:00:00 Test Item Value Reference Range Interpretation [...] (test code = 2821) 2.000 UIU/ML LIPID [id number] 00:00:00 Test Item Value Reference Range Interpretation Comments CHOLESTEROL (test code = 2210) 195 MG/DL TRIGLYCERIDES (test code = 2232) 505 MG/DL HDL CHOLESTEROL (test code = 35 MG/DL 2220) CALC LDL CHOL (test code = 2237) NOTE MG/DL RISK RATIO LDL/HDL (test code = (NOTE) RATIO 2238) LIPID [id number] 00:00:00 Test Item Value Reference Range Interpretation [...] (test code = 2821) 2.000 UIU/ML LIPID [id number] 00:00:00 Test Item Value Reference Range Interpretation [...] (test code = 2821) 2.000 UIU/ML LIPID [id number] 00:00:00 Test Item Value Reference Range Interpretation Comments CHOLESTEROL (test code = 2210) 195 MG/DL TRIGLYCERIDES (test code = 2232) 505 MG/DL HDL CHOLESTEROL (test code = 35 MG/DL 2220) CALC LDL CHOL (test code = 2237) NOTE MG/DL RISK RATIO LDL/HDL (test code = (NOTE) RATIO 2238) LIPID [id number] 00:00:00 Test Item Value Reference Range Interpretation [...] (test code = 2821) 2.000 UIU/ML LIPID [id number] 00:00:00 Test Item Value Reference Range Interpretation Comments CHOLESTEROL (test code = 2210) 195 MG/DL TRIGLYCERIDES (test code = 2232) 505 MG/DL HDL CHOLESTEROL (test code = 35 MG/DL 2220) CALC LDL CHOL (test code = 2237) NOTE MG/DL RISK RATIO LDL/HDL (test code = (NOTE) RATIO 2238) LIPID [id number] 00:00:00 Test Item Value Reference Range Interpretation [...] (test code = 2821) 2.000 UIU/ML LIPID [id number] 00:00:00 Test Item Value Reference Range Interpretation Comments CHOLESTEROL (test code = 2210) 195 MG/DL TRIGLYCERIDES (test code = 2232) 505 MG/DL HDL CHOLESTEROL (test code = 35 MG/DL 2220) CALC LDL CHOL (test code = 2237) NOTE MG/DL RISK RATIO LDL/HDL (test code = (NOTE) RATIO 2238) LIPID [id number] 00:00:00 Test Item Value Reference Range Interpretation [...] code = 2821) 2.000 UIU/ML COMPREHENSIVE METABOLIC [id number] 00:00:00 Test Item Value Reference Range Interpretation Comments GLUCOSE (test code = 2217) 154 MG/DL BUN (test code = 2208) 12 MG/DL CREATININE (test code = 2214) 0.54 MG/DL eGFR AMER. (test code 139 ML/MIN/1.73 = 65707) eGFR NON- AMER. (test 120 ML/MIN/1.73 code = 61494) CALC BUN/CREAT (test code = 22 RATIO [...] code = 2219) 22 U/L COMPREHENSIVE METABOLIC [id number] 00:00:00 Test Item Value Reference Range Interpretation Comments GLUCOSE (test code = 2217) 154 MG/DL BUN (test code = 2208) 12 MG/DL CREATININE (test code = 2214) 0.54 MG/DL eGFR AMER. (test code 139 ML/MIN/1.73 = 94743) eGFR NON- AMER. (test 120 ML/MIN/1.73 code = 99040) CALC BUN/CREAT (test code = 22 RATIO [...] (test code = 2219) 22 U/L LIPID [id number] 00:00:00 Test Item Value Reference Range Interpretation Comments CHOLESTEROL (test code = 2210) 243 MG/DL TRIGLYCERIDES (test code = 2232) 1140 MG/DL HDL CHOLESTEROL (test code = 31 MG/DL 2220) CALC LDL CHOL (test code = 2237) NOTE MG/DL RISK RATIO LDL/HDL (test code = (NOTE) RATIO 2238) LIPID [id number] 00:00:00 Test Item Value Reference Range Interpretation Comments CHOLESTEROL (test code = 2210) 243 MG/DL TRIGLYCERIDES (test code = 2232) 1140 MG/DL HDL CHOLESTEROL (test code = 31 MG/DL 2220) CALC LDL CHOL (test code = 2237) NOTE MG/DL RISK RATIO LDL/HDL (test code = (NOTE) RATIO 2238) CBC W/AUTO [id number] 00:00:00 Test Item Value Reference Range Interpretation [...] code = 1015) 229 K/UL CBC W/AUTO [id number] 00:00:00 Test Item Value Reference Range Interpretation [...] code = 1015) 229 K/UL CBC W/AUTO [id number] 00:00:00 Test Item Value Reference Range Interpretation [...] (test code = 1015) 229 K/UL HEMOGLOBIN [id number] 00:00:00 Test Item Value Reference Range Interpretation Comments HEMOGLOBIN A1c (test code = 91299) 7.7 % HEMOGLOBIN [id number] 00:00:00 Test Item Value Reference Range Interpretation Comments HEMOGLOBIN A1c (test code = 95503) 7.7 % HEMOGLOBIN [id number] 00:00:00 Test Item Value Reference Range Interpretation Comments HEMOGLOBIN A1c (test code = 83517) 7.7 % COMPREHENSIVE METABOLIC [id number] 00:00:00 Test Item Value Reference Range Interpretation Comments GLUCOSE (test code = 2217) 154 MG/DL BUN (test code = 2208) 12 MG/DL CREATININE (test code = 2214) 0.54 MG/DL eGFR AMER. (test code 139 ML/MIN/1.73 = 40321) eGFR NON- AMER. (test 120 ML/MIN/1.73 code = 92538) CALC BUN/CREAT (test code = 22 RATIO [...] code = 2219) 22 U/L COMPREHENSIVE METABOLIC [id number] 00:00:00 Test Item Value Reference Range Interpretation Comments GLUCOSE (test code = 2217) 154 MG/DL BUN (test code = 2208) 12 MG/DL CREATININE (test code = 2214) 0.54 MG/DL eGFR AMER. (test code 139 ML/MIN/1.73 = 61210) eGFR NON- AMER. (test 120 ML/MIN/1.73 code = 02104) CALC BUN/CREAT (test code = 22 RATIO [...] (test code = 2219) 22 U/L LIPID [id number] 00:00:00 Test Item Value Reference Range Interpretation Comments CHOLESTEROL (test code = 2210) 243 MG/DL TRIGLYCERIDES (test code = 2232) 1140 MG/DL HDL CHOLESTEROL (test code = 31 MG/DL 2220) CALC LDL CHOL (test code = 2237) NOTE MG/DL RISK RATIO LDL/HDL (test code = (NOTE) RATIO 2238) LIPID [id number] 00:00:00 Test Item Value Reference Range Interpretation Comments CHOLESTEROL (test code = 2210) 243 MG/DL TRIGLYCERIDES (test code = 2232) 1140 MG/DL HDL CHOLESTEROL (test code = 31 MG/DL 2220) CALC LDL CHOL (test code = 2237) NOTE MG/DL RISK RATIO LDL/HDL (test code = (NOTE) RATIO 2238) CBC W/AUTO [id number] 00:00:00 Test Item Value Reference Range Interpretation [...] code = 1015) 229 K/UL CBC W/AUTO [id number] 00:00:00 Test Item Value Reference Range Interpretation [...] code = 1015) 229 K/UL CBC W/AUTO [id number] 00:00:00 Test Item Value Reference Range Interpretation [...] (test code = 1015) 229 K/UL HEMOGLOBIN [id number] 00:00:00 Test Item Value Reference Range Interpretation Comments HEMOGLOBIN A1c (test code = 00093) 7.7 % HEMOGLOBIN [id number] 00:00:00 Test Item Value Reference Range Interpretation Comments HEMOGLOBIN A1c (test code = 73195) 7.7 % HEMOGLOBIN [id number] 00:00:00 Test Item Value Reference Range Interpretation Comments HEMOGLOBIN A1c (test code = 90214) 7.7 % COMPREHENSIVE METABOLIC [id number] 00:00:00 Test Item Value Reference Range Interpretation Comments GLUCOSE (test code = 2217) 154 MG/DL BUN (test code = 2208) 12 MG/DL CREATININE (test code = 2214) 0.54 MG/DL eGFR AMER. (test code 139 ML/MIN/1.73 = 43642) eGFR NON- AMER. (test 120 ML/MIN/1.73 code = 22878) CALC BUN/CREAT (test code = 22 RATIO [...] code = 2219) 22 U/L COMPREHENSIVE METABOLIC [id number] 00:00:00 Test Item Value Reference Range Interpretation Comments GLUCOSE (test code = 2217) 154 MG/DL BUN (test code = 2208) 12 MG/DL CREATININE (test code = 2214) 0.54 MG/DL eGFR AMER. (test code 139 ML/MIN/1.73 = 42270) eGFR NON- AMER. (test 120 ML/MIN/1.73 code = 96237) CALC BUN/CREAT (test code = 22 RATIO [...] (test code = 2219) 22 U/L LIPID [id number] 00:00:00 Test Item Value Reference Range Interpretation Comments CHOLESTEROL (test code = 2210) 243 MG/DL TRIGLYCERIDES (test code = 2232) 1140 MG/DL HDL CHOLESTEROL (test code = 31 MG/DL 2220) CALC LDL CHOL (test code = 2237) NOTE MG/DL RISK RATIO LDL/HDL (test code = (NOTE) RATIO 2238) LIPID [id number] 00:00:00 Test Item Value Reference Range Interpretation Comments CHOLESTEROL (test code = 2210) 243 MG/DL TRIGLYCERIDES (test code = 2232) 1140 MG/DL HDL CHOLESTEROL (test code = 31 MG/DL 2220) CALC LDL CHOL (test code = 2237) NOTE MG/DL RISK RATIO LDL/HDL (test code = (NOTE) RATIO 2238) CBC W/AUTO [id number] 00:00:00 Test Item Value Reference Range Interpretation [...] code = 1015) 229 K/UL CBC W/AUTO [id number] 00:00:00 Test Item Value Reference Range Interpretation [...] code = 1015) 229 K/UL CBC W/AUTO [id number] 00:00:00 Test Item Value Reference Range Interpretation [...] (test code = 1015) 229 K/UL HEMOGLOBIN [id number] 00:00:00 Test Item Value Reference Range Interpretation Comments HEMOGLOBIN A1c (test code = 36689) 7.7 % HEMOGLOBIN [id number] 00:00:00 Test Item Value Reference Range Interpretation Comments HEMOGLOBIN A1c (test code = 95640) 7.7 % HEMOGLOBIN [id number] 00:00:00 Test Item Value Reference Range Interpretation Comments HEMOGLOBIN A1c (test code = 94884) 7.7 % COMPREHENSIVE METABOLIC [id number] 00:00:00 Test Item Value Reference Range Interpretation Comments GLUCOSE (test code = 2217) 154 MG/DL BUN (test code = 2208) 12 MG/DL CREATININE (test code = 2214) 0.54 MG/DL eGFR AMER. (test code 139 ML/MIN/1.73 = 13466) eGFR NON- AMER. (test 120 ML/MIN/1.73 code = 91176) CALC BUN/CREAT (test code = 22 RATIO [...] code = 2219) 22 U/L COMPREHENSIVE METABOLIC [id number] 00:00:00 Test Item Value Reference Range Interpretation Comments GLUCOSE (test code = 2217) 154 MG/DL BUN (test code = 2208) 12 MG/DL CREATININE (test code = 2214) 0.54 MG/DL eGFR AMER. (test code 139 ML/MIN/1.73 = 18017) eGFR NON- AMER. (test 120 ML/MIN/1.73 code = 50033) CALC BUN/CREAT (test code = 22 RATIO [...] (test code = 2219) 22 U/L LIPID [id number] 00:00:00 Test Item Value Reference Range Interpretation Comments CHOLESTEROL (test code = 2210) 243 MG/DL TRIGLYCERIDES (test code = 2232) 1140 MG/DL HDL CHOLESTEROL (test code = 31 MG/DL 2220) CALC LDL CHOL (test code = 2237) NOTE MG/DL RISK RATIO LDL/HDL (test code = (NOTE) RATIO 2238) LIPID [id number] 00:00:00 Test Item Value Reference Range Interpretation Comments CHOLESTEROL (test code = 2210) 243 MG/DL TRIGLYCERIDES (test code = 2232) 1140 MG/DL HDL CHOLESTEROL (test code = 31 MG/DL 2220) CALC LDL CHOL (test code = 2237) NOTE MG/DL RISK RATIO LDL/HDL (test code = (NOTE) RATIO 2238) CBC W/AUTO [id number] 00:00:00 Test Item Value Reference Range Interpretation [...] code = 1015) 229 K/UL CBC W/AUTO [id number] 00:00:00 Test Item Value Reference Range Interpretation [...] code = 1015) 229 K/UL CBC W/AUTO [id number] 00:00:00 Test Item Value Reference Range Interpretation [...] (test code = 1015) 229 K/UL HEMOGLOBIN [id number] 00:00:00 Test Item Value Reference Range Interpretation Comments HEMOGLOBIN A1c (test code = 67329) 7.7 % HEMOGLOBIN [id number] 00:00:00 Test Item Value Reference Range Interpretation Comments HEMOGLOBIN A1c (test code = 36965) 7.7 % HEMOGLOBIN [id number] 00:00:00 Test Item Value Reference Range Interpretation Comments HEMOGLOBIN A1c (test code = 95909) 7.7 % COMPREHENSIVE METABOLIC [id number] 00:00:00 Test Item Value Reference Range Interpretation Comments GLUCOSE (test code = 2217) 154 MG/DL BUN (test code = 2208) 12 MG/DL CREATININE (test code = 2214) 0.54 MG/DL eGFR AMER. (test code 139 ML/MIN/1.73 = 25543) eGFR NON- AMER. (test 120 ML/MIN/1.73 code = 18480) CALC BUN/CREAT (test code = 22 RATIO [...] code = 2219) 22 U/L COMPREHENSIVE METABOLIC [id number] 00:00:00 Test Item Value Reference Range Interpretation Comments GLUCOSE (test code = 2217) 154 MG/DL BUN (test code = 2208) 12 MG/DL CREATININE (test code = 2214) 0.54 MG/DL eGFR AMER. (test code 139 ML/MIN/1.73 = 80681) eGFR NON- AMER. (test 120 ML/MIN/1.73 code = 18922) CALC BUN/CREAT (test code = 22 RATIO [...] BILIRUBIN, TOTAL (test code = 0.1 MG/DL 7) ALKALINE PHOSPHATASE (test 42 U/L code = 2204) AST (test code = 2218) 17 U/L ALT (test code = 2219) 22 U/L LIPID [id number] 00:00:00 Test Item Value Reference Range Interpretation Comments CHOLESTEROL (test code = 2210) 243 MG/DL TRIGLYCERIDES (test code = 2232) 1140 MG/DL HDL CHOLESTEROL (test code = 31 MG/DL 2220) CALC LDL CHOL (test code = 2237) NOTE MG/DL RISK RATIO LDL/HDL (test code = (NOTE) RATIO 2238) LIPID [id number] 00:00:00 Test Item Value Reference Range Interpretation Comments CHOLESTEROL (test code = 2210) 243 MG/DL TRIGLYCERIDES (test code = 2232) 1140 MG/DL HDL CHOLESTEROL (test code = 31 MG/DL 2220) CALC LDL CHOL (test code = 2237) NOTE MG/DL RISK RATIO LDL/HDL (test code = (NOTE) RATIO 2238) CBC W/AUTO [id number] 00:00:00 Test Item Value Reference Range Interpretation [...] code = 1015) 229 K/UL CBC W/AUTO [id number] 00:00:00 Test Item Value Reference Range Interpretation [...] code = 1015) 229 K/UL CBC W/AUTO [id number] 00:00:00 Test Item Value Reference Range Interpretation [...] (test code = 1015) 229 K/UL HEMOGLOBIN [id number] 00:00:00 Test Item Value Reference Range Interpretation Comments HEMOGLOBIN A1c (test code = 03009) 7.7 % HEMOGLOBIN [id number] 00:00:00 Test Item Value Reference Range Interpretation Comments HEMOGLOBIN A1c (test code = 29687) 7.7 % HEMOGLOBIN [id number] 00:00:00 Test Item Value Reference Range Interpretation Comments HEMOGLOBIN A1c (test code = 73720) 7.7 % COMPREHENSIVE METABOLIC [id number] 00:00:00 Test Item Value Reference Range Interpretation Comments GLUCOSE (test code = 2217) 154 MG/DL BUN (test code = 2208) 12 MG/DL CREATININE (test code = 2214) 0.54 MG/DL eGFR AMER. (test code 139 ML/MIN/1.73 = 06445) eGFR NON- AMER. (test 120 ML/MIN/1.73 code = 14020) CALC BUN/CREAT (test code = 22 RATIO [...] code = 2219) 22 U/L COMPREHENSIVE METABOLIC [id number] 00:00:00 Test Item Value Reference Range Interpretation Comments GLUCOSE (test code = 2217) 154 MG/DL BUN (test code = 2208) 12 MG/DL CREATININE (test code = 2214) 0.54 MG/DL eGFR AMER. (test code 139 ML/MIN/1.73 = 21536) eGFR NON- AMER. (test 120 ML/MIN/1.73 code = 25077) CALC BUN/CREAT (test code = 22 RATIO [...] (test code = 2219) 22 U/L LIPID [id number] 00:00:00 Test Item Value Reference Range Interpretation Comments CHOLESTEROL (test code = 2210) 243 MG/DL TRIGLYCERIDES (test code = 2232) 1140 MG/DL HDL CHOLESTEROL (test code = 31 MG/DL 2220) CALC LDL CHOL (test code = 2237) NOTE MG/DL RISK RATIO LDL/HDL (test code = (NOTE) RATIO 2238) LIPID [id number] 00:00:00 Test Item Value Reference Range Interpretation Comments CHOLESTEROL (test code = 2210) 243 MG/DL TRIGLYCERIDES (test code = 2232) 1140 MG/DL HDL CHOLESTEROL (test code = 31 MG/DL 2220) CALC LDL CHOL (test code = 2237) NOTE MG/DL RISK RATIO LDL/HDL (test code = (NOTE) RATIO 2238) CBC W/AUTO [id number] 00:00:00 Test Item Value Reference Range Interpretation [...] code = 1015) 229 K/UL CBC W/AUTO [id number] 00:00:00 Test Item Value Reference Range Interpretation [...] code = 1015) 229 K/UL CBC W/AUTO [id number] 00:00:00 Test Item Value Reference Range Interpretation [...] (test code = 1015) 229 K/UL HEMOGLOBIN [id number] 00:00:00 Test Item Value Reference Range Interpretation Comments HEMOGLOBIN A1c (test code = 69726) 7.7 % HEMOGLOBIN [id number] 00:00:00 Test Item Value Reference Range Interpretation Comments HEMOGLOBIN A1c (test code = 68817) 7.7 % HEMOGLOBIN [id number] 00:00:00 Test Item Value Reference Range Interpretation Comments HEMOGLOBIN A1c (test code = 02084) 7.7 % COMPREHENSIVE METABOLIC [id number] 00:00:00 Test Item Value Reference Range Interpretation Comments GLUCOSE (test code = 2217) 154 MG/DL BUN (test code = 2208) 12 MG/DL CREATININE (test code = 2214) 0.54 MG/DL eGFR AMER. (test code 139 ML/MIN/1.73 = 04100) eGFR NON- AMER. (test 120 ML/MIN/1.73 code = 62704) CALC BUN/CREAT (test code = 22 RATIO [...] code = 2219) 22 U/L COMPREHENSIVE METABOLIC [id number] 00:00:00 Test Item Value Reference Range Interpretation Comments GLUCOSE (test code = 2217) 154 MG/DL BUN (test code = 2208) 12 MG/DL CREATININE (test code = 2214) 0.54 MG/DL eGFR AMER. (test code 139 ML/MIN/1.73 = 47661) eGFR NON- AMER. (test 120 ML/MIN/1.73 code = 42638) CALC BUN/CREAT (test code = 22 RATIO [...] (test code = 2219) 22 U/L LIPID [id number] 00:00:00 Test Item Value Reference Range Interpretation Comments CHOLESTEROL (test code = 2210) 243 MG/DL TRIGLYCERIDES (test code = 2232) 1140 MG/DL HDL CHOLESTEROL (test code = 31 MG/DL 2220) CALC LDL CHOL (test code = 2237) NOTE MG/DL RISK RATIO LDL/HDL (test code = (NOTE) RATIO 2238) COMPREHENSIVE METABOLIC [id number] 00:00:00 Test Item Value Reference Range Interpretation Comments GLUCOSE (test code = 2217) 154 MG/DL BUN (test code = 2208) 12 MG/DL CREATININE (test code = 2214) 0.54 MG/DL eGFR AMER. (test code 139 ML/MIN/1.73 = 04385) eGFR NON- AMER. (test 120 ML/MIN/1.73 code = 29113) CALC BUN/CREAT (test code = 22 RATIO [...] (test code = 2219) 22 U/L LIPID [id number] 00:00:00 Test Item Value Reference Range Interpretation Comments CHOLESTEROL (test code = 2210) 243 MG/DL TRIGLYCERIDES (test code = 2232) 1140 MG/DL HDL CHOLESTEROL (test code = 31 MG/DL 2220) CALC LDL CHOL (test code = 2237) NOTE MG/DL RISK RATIO LDL/HDL (test code = (NOTE) RATIO 2238) CBC W/AUTO [id number] 00:00:00 Test Item Value Reference Range Interpretation [...] code = 1015) 229 K/UL CBC W/AUTO [id number] 00:00:00 Test Item Value Reference Range Interpretation [...] code = 1015) 229 K/UL CBC W/AUTO [id number] 00:00:00 Test Item Value Reference Range Interpretation [...] (test code = 1015) 229 K/UL HEMOGLOBIN [id number] 00:00:00 Test Item Value Reference Range Interpretation Comments HEMOGLOBIN A1c (test code = 88243) 7.7 % HEMOGLOBIN [id number] 00:00:00 Test Item Value Reference Range Interpretation Comments HEMOGLOBIN A1c (test code = 96978) 7.7 % HEMOGLOBIN [id number] 00:00:00 Test Item Value Reference Range Interpretation Comments HEMOGLOBIN A1c (test code = 66778) 7.7 % LIPID [id number] 00:00:00 Test Item Value Reference Range Interpretation Comments CHOLESTEROL (test code = 2210) 243 MG/DL TRIGLYCERIDES (test code = 2232) 1140 MG/DL HDL CHOLESTEROL (test code = 31 MG/DL 2220) CALC LDL CHOL (test code = 2237) NOTE MG/DL RISK RATIO LDL/HDL (test code = (NOTE) RATIO 2238) CBC W/AUTO [id number] 00:00:00 Test Item Value Reference Range Interpretation [...] code = 1015) 229 K/UL CBC W/AUTO [id number] 00:00:00 Test Item Value Reference Range Interpretation [...] code = 1015) 229 K/UL COMPREHENSIVE METABOLIC [id number] 00:00:00 Test Item Value Reference Range Interpretation Comments GLUCOSE (test code = 2217) 154 MG/DL BUN (test code = 2208) 12 MG/DL CREATININE (test code = 2214) 0.54 MG/DL eGFR AMER. (test code 139 ML/MIN/1.73 = 91339) eGFR NON- AMER. (test 120 ML/MIN/1.73 code = 67246) CALC BUN/CREAT (test code = 22 RATIO [...] code = 2219) 22 U/L COMPREHENSIVE METABOLIC [id number] 00:00:00 Test Item Value Reference Range Interpretation Comments GLUCOSE (test code = 2217) 154 MG/DL BUN (test code = 2208) 12 MG/DL CREATININE (test code = 2214) 0.54 MG/DL eGFR AMER. (test code 139 ML/MIN/1.73 = 98071) eGFR NON- AMER. (test 120 ML/MIN/1.73 code = 32987) CALC BUN/CREAT (test code = 22 RATIO [...] (test code = 2219) 22 U/L HEMOGLOBIN [id number] 00:00:00 Test Item Value Reference Range Interpretation Comments HEMOGLOBIN A1c (test code = 87996) 7.7 % LIPID [id number] 00:00:00 Test Item Value Reference Range Interpretation Comments CHOLESTEROL (test code = 2210) 243 MG/DL TRIGLYCERIDES (test code = 2232) 1140 MG/DL HDL CHOLESTEROL (test code = 31 MG/DL 2220) CALC LDL CHOL (test code = 2237) NOTE MG/DL RISK RATIO LDL/HDL (test code = (NOTE) RATIO 2238) LIPID [id number] 00:00:00 Test Item Value Reference Range Interpretation Comments CHOLESTEROL (test code = 2210) 243 MG/DL TRIGLYCERIDES (test code = 2232) 1140 MG/DL HDL CHOLESTEROL (test code = 31 MG/DL 2220) CALC LDL CHOL (test code = 2237) NOTE MG/DL RISK RATIO LDL/HDL (test code = (NOTE) RATIO 2238) HEMOGLOBIN [id number] 00:00:00 Test Item Value Reference Range Interpretation Comments HEMOGLOBIN A1c (test code = 42282) 7.7 % CBC W/AUTO [id number] 00:00:00 Test Item Value Reference Range Interpretation [...] code = 1015) 229 K/UL CBC W/AUTO [id number] 00:00:00 Test Item Value Reference Range Interpretation [...] code = 1015) 229 K/UL CBC W/AUTO [id number] 00:00:00 Test Item Value Reference Range Interpretation [...] (test code = 1015) 229 K/UL HEMOGLOBIN [id number] 00:00:00 Test Item Value Reference Range Interpretation Comments HEMOGLOBIN A1c (test code = 81310) 7.7 % HEMOGLOBIN [id number] 00:00:00 Test Item Value Reference Range Interpretation Comments HEMOGLOBIN A1c (test code = 14113) 7.7 % HEMOGLOBIN [id number] 00:00:00 Test Item Value Reference Range Interpretation Comments HEMOGLOBIN A1c (test code = 96957) 7.7 % COMPREHENSIVE METABOLIC [id number] 00:00:00 Test Item Value Reference Range Interpretation Comments GLUCOSE (test code = 2217) 154 MG/DL BUN (test code = 2208) 12 MG/DL CREATININE (test code = 2214) 0.54 MG/DL eGFR AMER. (test code 139 ML/MIN/1.73 = 31062) eGFR NON- AMER. (test 120 ML/MIN/1.73 code = 68914) CALC BUN/CREAT (test code = 22 RATIO [...] code = 2219) 22 U/L COMPREHENSIVE METABOLIC [id number] 00:00:00 Test Item Value Reference Range Interpretation Comments GLUCOSE (test code = 2217) 154 MG/DL BUN (test code = 2208) 12 MG/DL CREATININE (test code = 2214) 0.54 MG/DL eGFR AMER. (test code 139 ML/MIN/1.73 = 47245) eGFR NON- AMER. (test 120 ML/MIN/1.73 code = 68677) CALC BUN/CREAT (test code = 22 RATIO [...] (test code = 2219) 22 U/L LIPID [id number] 00:00:00 Test Item Value Reference Range Interpretation Comments CHOLESTEROL (test code = 2210) 243 MG/DL TRIGLYCERIDES (test code = 2232) 1140 MG/DL HDL CHOLESTEROL (test code = 31 MG/DL 2220) CALC LDL CHOL (test code = 2237) NOTE MG/DL RISK RATIO LDL/HDL (test code = (NOTE) RATIO 2238) LIPID [id number] 00:00:00 Test Item Value Reference Range Interpretation Comments CHOLESTEROL (test code = 2210) 243 MG/DL TRIGLYCERIDES (test code = 2232) 1140 MG/DL HDL CHOLESTEROL (test code = 31 MG/DL 2220) CALC LDL CHOL (test code = 2237) NOTE MG/DL RISK RATIO LDL/HDL (test code = (NOTE) RATIO 2238) CBC W/AUTO [id number] 00:00:00 Test Item Value Reference Range Interpretation [...] code = 1015) 229 K/UL CBC W/AUTO [id number] 00:00:00 Test Item Value Reference Range Interpretation [...] code = 1015) 229 K/UL CBC W/AUTO [id number] 00:00:00 Test Item Value Reference Range Interpretation [...] (test code = 1015) 229 K/UL HEMOGLOBIN [id number] 00:00:00 Test Item Value Reference Range Interpretation Comments HEMOGLOBIN A1c (test code = 78436) 7.7 % HEMOGLOBIN [id number] 00:00:00 Test Item Value Reference Range Interpretation Comments HEMOGLOBIN A1c (test code = 41532) 7.7 % HEMOGLOBIN [id number] 00:00:00 Test Item Value Reference Range Interpretation Comments HEMOGLOBIN A1c (test code = 49444) 7.7 % COMPREHENSIVE METABOLIC [id number] 00:00:00 Test Item Value Reference Range Interpretation Comments GLUCOSE (test code = 2217) 154 MG/DL BUN (test code = 2208) 12 MG/DL CREATININE (test code = 2214) 0.54 MG/DL eGFR AMER. (test code 139 ML/MIN/1.73 = 02639) eGFR NON- AMER. (test 120 ML/MIN/1.73 code = 07201) CALC BUN/CREAT (test code = 22 RATIO [...] code = 2219) 22 U/L COMPREHENSIVE METABOLIC [id number] 00:00:00 Test Item Value Reference Range Interpretation Comments GLUCOSE (test code = 2217) 154 MG/DL BUN (test code = 2208) 12 MG/DL CREATININE (test code = 2214) 0.54 MG/DL eGFR AMER. (test code 139 ML/MIN/1.73 = 62382) eGFR NON- AMER. (test 120 ML/MIN/1.73 code = 46611) CALC BUN/CREAT (test code = 22 RATIO [...] (test code = 2219) 22 U/L LIPID [id number] 00:00:00 Test Item Value Reference Range Interpretation Comments CHOLESTEROL (test code = 2210) 243 MG/DL TRIGLYCERIDES (test code = 2232) 1140 MG/DL HDL CHOLESTEROL (test code = 31 MG/DL 2220) CALC LDL CHOL (test code = 2237) NOTE MG/DL RISK RATIO LDL/HDL (test code = (NOTE) RATIO 2238) LIPID [id number] 00:00:00 Test Item Value Reference Range Interpretation Comments CHOLESTEROL (test code = 2210) 243 MG/DL TRIGLYCERIDES (test code = 2232) 1140 MG/DL HDL CHOLESTEROL (test code = 31 MG/DL 2220) CALC LDL CHOL (test code = 2237) NOTE MG/DL RISK RATIO LDL/HDL (test code = (NOTE) RATIO 2238) CBC W/AUTO [id number] 00:00:00 Test Item Value Reference Range Interpretation [...] code = 1015) 229 K/UL CBC W/AUTO [id number] 00:00:00 Test Item Value Reference Range Interpretation [...] code = 1015) 229 K/UL CBC W/AUTO [id number] 00:00:00 Test Item Value Reference Range Interpretation [...] (test code = 1015) 229 K/UL HEMOGLOBIN [id number] 00:00:00 Test Item Value Reference Range Interpretation Comments HEMOGLOBIN A1c (test code = 25792) 7.7 % HEMOGLOBIN [id number] 00:00:00 Test Item Value Reference Range Interpretation Comments HEMOGLOBIN A1c (test code = 07248) 7.7 % HEMOGLOBIN [id number] 00:00:00 Test Item Value Reference Range Interpretation Comments HEMOGLOBIN A1c (test code = 27318) 7.7 % [id number] 00:00:00 Test Item Value Reference Range Interpretation Comments MAGNESIUM (test code = 2226) 1.4 MG/DL [id number] 00:00:00 Test Item Value Reference Range Interpretation Comments MAGNESIUM (test code = 2226) 1.4 MG/DL [id number] 00:00:00 Test Item Value Reference Range Interpretation Comments MAGNESIUM (test code = 2226) 1.4 MG/DL COMPREHENSIVE METABOLIC [id number] 00:00:00 Test Item Value Reference Range Interpretation Comments GLUCOSE (test code = 2217) 234 MG/DL BUN (test code = 2208) 17 MG/DL CREATININE (test code = 2214) 0.54 MG/DL eGFR AMER. (test code 139 ML/MIN/1.73 = 71683) eGFR NON- AMER. (test 120 ML/MIN/1.73 code = 22971) CALC BUN/CREAT (test code = 31 RATIO [...] code = 2219) 22 U/L COMPREHENSIVE METABOLIC [id number] 00:00:00 Test Item Value Reference Range Interpretation Comments GLUCOSE (test code = 2217) 234 MG/DL BUN (test code = 2208) 17 MG/DL CREATININE (test code = 2214) 0.54 MG/DL eGFR AMER. (test code 139 ML/MIN/1.73 = 49850) eGFR NON- AMER. (test 120 ML/MIN/1.73 code = 86505) CALC BUN/CREAT (test code = 31 RATIO [...] (test code = 2219) 22 U/L HEMOGLOBIN [id number] 00:00:00 Test Item Value Reference Range Interpretation Comments HEMOGLOBIN A1c (test code = 61038) 7.7 % HEMOGLOBIN [id number] 00:00:00 Test Item Value Reference Range Interpretation Comments HEMOGLOBIN A1c (test code = 79546) 7.7 % HEMOGLOBIN [id number] 00:00:00 Test Item Value Reference Range Interpretation Comments HEMOGLOBIN A1c (test code = 15712) 7.7 % CBC W/AUTO [id number] 00:00:00 Test Item Value Reference Range Interpretation [...] code = 1015) 224 K/UL CBC W/AUTO [id number] 00:00:00 Test Item Value Reference Range Interpretation [...] code = 1015) 224 K/UL CBC W/AUTO [id number] 00:00:00 Test Item Value Reference Range Interpretation [...] TSH (test code = 2821) <0.10 UIU/ML [id number] 00:00:00 Test Item Value Reference Range Interpretation Comments MAGNESIUM (test code = 2226) 1.4 MG/DL [id number] 00:00:00 Test Item Value Reference Range Interpretation Comments MAGNESIUM (test code = 2226) 1.4 MG/DL [id number] 00:00:00 Test Item Value Reference Range Interpretation Comments MAGNESIUM (test code = 2226) 1.4 MG/DL COMPREHENSIVE METABOLIC [id number] 00:00:00 Test Item Value Reference Range Interpretation Comments GLUCOSE (test code = 2217) 234 MG/DL BUN (test code = 2208) 17 MG/DL CREATININE (test code = 2214) 0.54 MG/DL eGFR AMER. (test code 139 ML/MIN/1.73 = 31286) eGFR NON- AMER. (test 120 ML/MIN/1.73 code = 16604) CALC BUN/CREAT (test code = 31 RATIO [...] code = 2219) 22 U/L COMPREHENSIVE METABOLIC [id number] 00:00:00 Test Item Value Reference Range Interpretation Comments GLUCOSE (test code = 2217) 234 MG/DL BUN (test code = 2208) 17 MG/DL CREATININE (test code = 2214) 0.54 MG/DL eGFR AMER. (test code 139 ML/MIN/1.73 = 76289) eGFR NON- AMER. (test 120 ML/MIN/1.73 code = 28368) CALC BUN/CREAT (test code = 31 RATIO [...] (test code = 2219) 22 U/L HEMOGLOBIN [id number] 00:00:00 Test Item Value Reference Range Interpretation Comments HEMOGLOBIN A1c (test code = 01339) 7.7 % HEMOGLOBIN [id number] 00:00:00 Test Item Value Reference Range Interpretation Comments HEMOGLOBIN A1c (test code = 51602) 7.7 % HEMOGLOBIN [id number] 00:00:00 Test Item Value Reference Range Interpretation Comments HEMOGLOBIN A1c (test code = 89734) 7.7 % CBC W/AUTO [id number] 00:00:00 Test Item Value Reference Range Interpretation [...] code = 1015) 224 K/UL CBC W/AUTO [id number] 00:00:00 Test Item Value Reference Range Interpretation [...] code = 1015) 224 K/UL CBC W/AUTO [id number] 00:00:00 Test Item Value Reference Range Interpretation [...] TSH (test code = 2821) <0.10 UIU/ML [id number] 00:00:00 Test Item Value Reference Range Interpretation Comments MAGNESIUM (test code = 2226) 1.4 MG/DL [id number] 00:00:00 Test Item Value Reference Range Interpretation Comments MAGNESIUM (test code = 2226) 1.4 MG/DL [id number] 00:00:00 Test Item Value Reference Range Interpretation Comments MAGNESIUM (test code = 2226) 1.4 MG/DL COMPREHENSIVE METABOLIC [id number] 00:00:00 Test Item Value Reference Range Interpretation Comments GLUCOSE (test code = 2217) 234 MG/DL BUN (test code = 2208) 17 MG/DL CREATININE (test code = 2214) 0.54 MG/DL eGFR AMER. (test code 139 ML/MIN/1.73 = 83431) eGFR NON- AMER. (test 120 ML/MIN/1.73 code = 31628) CALC BUN/CREAT (test code = 31 RATIO [...] code = 2219) 22 U/L COMPREHENSIVE METABOLIC [id number] 00:00:00 Test Item Value Reference Range Interpretation Comments GLUCOSE (test code = 2217) 234 MG/DL BUN (test code = 2208) 17 MG/DL CREATININE (test code = 2214) 0.54 MG/DL eGFR AMER. (test code 139 ML/MIN/1.73 = 19602) eGFR NON- AMER. (test 120 ML/MIN/1.73 code = 15874) CALC BUN/CREAT (test code = 31 RATIO [...] (test code = 2219) 22 U/L HEMOGLOBIN [id number] 00:00:00 Test Item Value Reference Range Interpretation Comments HEMOGLOBIN A1c (test code = 45361) 7.7 % HEMOGLOBIN [id number] 00:00:00 Test Item Value Reference Range Interpretation Comments HEMOGLOBIN A1c (test code = 56507) 7.7 % HEMOGLOBIN [id number] 00:00:00 Test Item Value Reference Range Interpretation Comments HEMOGLOBIN A1c (test code = 60227) 7.7 % CBC W/AUTO [id number] 00:00:00 Test Item Value Reference Range Interpretation [...] code = 1015) 224 K/UL CBC W/AUTO [id number] 00:00:00 Test Item Value Reference Range Interpretation [...] code = 1015) 224 K/UL CBC W/AUTO [id number] 00:00:00 Test Item Value Reference Range Interpretation [...] TSH (test code = 2821) <0.10 UIU/ML [id number] 00:00:00 Test Item Value Reference Range Interpretation Comments MAGNESIUM (test code = 2226) 1.4 MG/DL [id number] 00:00:00 Test Item Value Reference Range Interpretation Comments MAGNESIUM (test code = 2226) 1.4 MG/DL [id number] 00:00:00 Test Item Value Reference Range Interpretation Comments MAGNESIUM (test code = 2226) 1.4 MG/DL COMPREHENSIVE METABOLIC [id number] 00:00:00 Test Item Value Reference Range Interpretation Comments GLUCOSE (test code = 2217) 234 MG/DL BUN (test code = 2208) 17 MG/DL CREATININE (test code = 2214) 0.54 MG/DL eGFR AMER. (test code 139 ML/MIN/1.73 = 01805) eGFR NON- AMER. (test 120 ML/MIN/1.73 code = 35224) CALC BUN/CREAT (test code = 31 RATIO [...] code = 2219) 22 U/L COMPREHENSIVE METABOLIC [id number] 00:00:00 Test Item Value Reference Range Interpretation Comments GLUCOSE (test code = 2217) 234 MG/DL BUN (test code = 2208) 17 MG/DL CREATININE (test code = 2214) 0.54 MG/DL eGFR AMER. (test code 139 ML/MIN/1.73 = 47475) eGFR NON- AMER. (test 120 ML/MIN/1.73 code = 12739) CALC BUN/CREAT (test code = 31 RATIO [...] (test code = 2219) 22 U/L HEMOGLOBIN [id number] 00:00:00 Test Item Value Reference Range Interpretation Comments HEMOGLOBIN A1c (test code = 23367) 7.7 % HEMOGLOBIN [id number] 00:00:00 Test Item Value Reference Range Interpretation Comments HEMOGLOBIN A1c (test code = 38159) 7.7 % HEMOGLOBIN [id number] 00:00:00 Test Item Value Reference Range Interpretation Comments HEMOGLOBIN A1c (test code = 11200) 7.7 % CBC W/AUTO [id number] 00:00:00 Test Item Value Reference Range Interpretation [...] code = 1015) 224 K/UL CBC W/AUTO [id number] 00:00:00 Test Item Value Reference Range Interpretation [...] code = 1015) 224 K/UL CBC W/AUTO [id number] 00:00:00 Test Item Value Reference Range Interpretation [...] TSH (test code = 2821) <0.10 UIU/ML [id number] 00:00:00 Test Item Value Reference Range Interpretation Comments MAGNESIUM (test code = 2226) 1.4 MG/DL [id number] 00:00:00 Test Item Value Reference Range Interpretation Comments MAGNESIUM (test code = 2226) 1.4 MG/DL [id number] 00:00:00 Test Item Value Reference Range Interpretation Comments MAGNESIUM (test code = 2226) 1.4 MG/DL COMPREHENSIVE METABOLIC [id number] 00:00:00 Test Item Value Reference Range Interpretation Comments GLUCOSE (test code = 2217) 234 MG/DL BUN (test code = 2208) 17 MG/DL CREATININE (test code = 2214) 0.54 MG/DL eGFR AMER. (test code 139 ML/MIN/1.73 = 11204) eGFR NON- AMER. (test 120 ML/MIN/1.73 code = 99303) CALC BUN/CREAT (test code = 31 RATIO [...] code = 2219) 22 U/L COMPREHENSIVE METABOLIC [id number] 00:00:00 Test Item Value Reference Range Interpretation Comments GLUCOSE (test code = 2217) 234 MG/DL BUN (test code = 2208) 17 MG/DL CREATININE (test code = 2214) 0.54 MG/DL eGFR AMER. (test code 139 ML/MIN/1.73 = 33218) eGFR NON- AMER. (test 120 ML/MIN/1.73 code = 78365) CALC BUN/CREAT (test code = 31 RATIO [...] (test code = 2219) 22 U/L HEMOGLOBIN [id number] 00:00:00 Test Item Value Reference Range Interpretation Comments HEMOGLOBIN A1c (test code = 62600) 7.7 % HEMOGLOBIN [id number] 00:00:00 Test Item Value Reference Range Interpretation Comments HEMOGLOBIN A1c (test code = 91185) 7.7 % HEMOGLOBIN [id number] 00:00:00 Test Item Value Reference Range Interpretation Comments HEMOGLOBIN A1c (test code = 40390) 7.7 % CBC W/AUTO [id number] 00:00:00 Test Item Value Reference Range Interpretation [...] code = 1015) 224 K/UL CBC W/AUTO [id number] 00:00:00 Test Item Value Reference Range Interpretation [...] code = 1015) 224 K/UL CBC W/AUTO [id number] 00:00:00 Test Item Value Reference Range Interpretation [...] TSH (test code = 2821) <0.10 UIU/ML [id number] 00:00:00 Test Item Value Reference Range Interpretation Comments MAGNESIUM (test code = 2226) 1.4 MG/DL [id number] 00:00:00 Test Item Value Reference Range Interpretation Comments MAGNESIUM (test code = 2226) 1.4 MG/DL [id number] 00:00:00 Test Item Value Reference Range Interpretation Comments MAGNESIUM (test code = 2226) 1.4 MG/DL COMPREHENSIVE METABOLIC [id number] 00:00:00 Test Item Value Reference Range Interpretation Comments GLUCOSE (test code = 2217) 234 MG/DL BUN (test code = 2208) 17 MG/DL CREATININE (test code = 2214) 0.54 MG/DL eGFR AMER. (test code 139 ML/MIN/1.73 = 32792) eGFR NON- AMER. (test 120 ML/MIN/1.73 code = 25192) CALC BUN/CREAT (test code = 31 RATIO [...] code = 2219) 22 U/L COMPREHENSIVE METABOLIC [id number] 00:00:00 Test Item Value Reference Range Interpretation Comments GLUCOSE (test code = 2217) 234 MG/DL BUN (test code = 2208) 17 MG/DL CREATININE (test code = 2214) 0.54 MG/DL eGFR AMER. (test code 139 ML/MIN/1.73 = 48005) eGFR NON- AMER. (test 120 ML/MIN/1.73 code = 17120) CALC BUN/CREAT (test code = 31 RATIO [...] (test code = 2219) 22 U/L HEMOGLOBIN [id number] 00:00:00 Test Item Value Reference Range Interpretation Comments HEMOGLOBIN A1c (test code = 07811) 7.7 % HEMOGLOBIN [id number] 00:00:00 Test Item Value Reference Range Interpretation Comments HEMOGLOBIN A1c (test code = 70328) 7.7 % HEMOGLOBIN [id number] 00:00:00 Test Item Value Reference Range Interpretation Comments HEMOGLOBIN A1c (test code = 17139) 7.7 % CBC W/AUTO [id number] 00:00:00 Test Item Value Reference Range Interpretation [...] code = 1015) 224 K/UL CBC W/AUTO [id number] 00:00:00 Test Item Value Reference Range Interpretation [...] code = 1015) 224 K/UL CBC W/AUTO [id number] 00:00:00 Test Item Value Reference Range Interpretation [...] TSH (test code = 2821) <0.10 UIU/ML [id number] 00:00:00 Test Item Value Reference Range Interpretation Comments MAGNESIUM (test code = 2226) 1.4 MG/DL [id number] 00:00:00 Test Item Value Reference Range Interpretation Comments MAGNESIUM (test code = 2226) 1.4 MG/DL [id number] 00:00:00 Test Item Value Reference Range Interpretation Comments MAGNESIUM (test code = 2226) 1.4 MG/DL [id number] 00:00:00 Test Item Value Reference Range Interpretation Comments MAGNESIUM (test code = 2226) 1.4 MG/DL COMPREHENSIVE METABOLIC [id number] 00:00:00 Test Item Value Reference Range Interpretation Comments GLUCOSE (test code = 2217) 234 MG/DL BUN (test code = 2208) 17 MG/DL CREATININE (test code = 2214) 0.54 MG/DL eGFR AMER. (test code 139 ML/MIN/1.73 = 48170) eGFR NON- AMER. (test 120 ML/MIN/1.73 code = 46089) CALC BUN/CREAT (test code = 31 RATIO [...] code = 2219) 22 U/L COMPREHENSIVE METABOLIC [id number] 00:00:00 Test Item Value Reference Range Interpretation Comments GLUCOSE (test code = 2217) 234 MG/DL BUN (test code = 2208) 17 MG/DL CREATININE (test code = 2214) 0.54 MG/DL eGFR AMER. (test code 139 ML/MIN/1.73 = 09033) eGFR NON- AMER. (test 120 ML/MIN/1.73 code = 10714) CALC BUN/CREAT (test code = 31 RATIO 2234) SODIUM (test code = 2231) 136 MEQ/L POTASSIUM (test code = 2228) 4.7 MEQ/L CHLORIDE (test code = 2215) 95 MEQ/L CARBON DIOXIDE (test code = 21 MEQ/L 2205) CALCIUM (test code = 2209) 10.0 MG/DL PROTEIN, TOTAL (test code = 7.5 G/DL 2228) ALBUMIN (test code = 220) 4.3 G/DL CALC GLOBULIN (test code = 3.2 G/DL 2239) CALC A/G RATIO (test code = 1.3 RATIO 2233) BILIRUBIN, TOTAL (test code = 0.2 MG/DL 2206) ALKALINE PHOSPHATASE (test 53 U/L code = 2203) AST (test code = 2218) 16 U/L ALT (test code = 2219) 22 U/L HEMOGLOBIN [id number] 00:00:00 Test Item Value Reference Range Interpretation Comments HEMOGLOBIN A1c (test code = 87447) 7.7 % HEMOGLOBIN [id number] 00:00:00 Test Item Value Reference Range Interpretation Comments HEMOGLOBIN A1c (test code = 16126) 7.7 % HEMOGLOBIN [id number] 00:00:00 Test Item Value Reference Range Interpretation Comments HEMOGLOBIN A1c (test code = 10987) 7.7 % [id number] 00:00:00 Test Item Value Reference Range Interpretation Comments MAGNESIUM (test code = 2226) 1.4 MG/DL CBC W/AUTO [id number] 00:00:00 Test Item Value Reference Range Interpretation [...] code = 1015) 224 K/UL CBC W/AUTO [id number] 00:00:00 Test Item Value Reference Range Interpretation [...] code = 1015) 224 K/UL CBC W/AUTO [id number] 00:00:00 Test Item Value Reference Range Interpretation [...] code = 2821) <0.10 UIU/ML COMPREHENSIVE METABOLIC [id number] 00:00:00 Test Item Value Reference Range Interpretation Comments GLUCOSE (test code = 2217) 234 MG/DL BUN (test code = 2208) 17 MG/DL CREATININE (test code = 2214) 0.54 MG/DL eGFR AMER. (test code 139 ML/MIN/1.73 = 50317) eGFR NON- AMER. (test 120 ML/MIN/1.73 code = 71139) CALC BUN/CREAT (test code = 31 RATIO [...] (test code = 2219) 22 U/L HEMOGLOBIN [id number] 00:00:00 Test Item Value Reference Range Interpretation Comments HEMOGLOBIN A1c (test code = 97526) 7.7 % HEMOGLOBIN [id number] 00:00:00 Test Item Value Reference Range Interpretation Comments HEMOGLOBIN A1c (test code = 57887) 7.7 % [id number] 00:00:00 Test Item Value Reference Range Interpretation Comments MAGNESIUM (test code = 2226) 1.4 MG/DL [id number] 00:00:00 Test Item Value Reference Range Interpretation Comments MAGNESIUM (test code = 2226) 1.4 MG/DL [id number] 00:00:00 Test Item Value Reference Range Interpretation Comments MAGNESIUM (test code = 2226) 1.4 MG/DL CBC W/AUTO [id number] 00:00:00 Test Item Value Reference Range Interpretation [...] code = 1015) 224 K/UL COMPREHENSIVE METABOLIC [id number] 00:00:00 Test Item Value Reference Range Interpretation Comments GLUCOSE (test code = 2217) 234 MG/DL BUN (test code = 2208) 17 MG/DL CREATININE (test code = 2214) 0.54 MG/DL eGFR AMER. (test code 139 ML/MIN/1.73 = 71249) eGFR NON- AMER. (test 120 ML/MIN/1.73 code = 76617) CALC BUN/CREAT (test code = 31 RATIO [...] code = 2219) 22 U/L CBC W/AUTO [id number] 00:00:00 Test Item Value Reference Range Interpretation [...] code = 1015) 224 K/UL COMPREHENSIVE METABOLIC [id number] 00:00:00 Test Item Value Reference Range Interpretation Comments GLUCOSE (test code = 2217) 234 MG/DL BUN (test code = 2208) 17 MG/DL CREATININE (test code = 2214) 0.54 MG/DL eGFR AMER. (test code 139 ML/MIN/1.73 = 64806) eGFR NON- AMER. (test 120 ML/MIN/1.73 code = 43806) CALC BUN/CREAT (test code = 31 RATIO [...] (test code = 2219) 22 U/L HEMOGLOBIN [id number] 00:00:00 Test Item Value Reference Range Interpretation Comments HEMOGLOBIN A1c (test code = 95299) 7.7 % HEMOGLOBIN [id number] 00:00:00 Test Item Value Reference Range Interpretation Comments HEMOGLOBIN A1c (test code = 40453) 7.7 % HEMOGLOBIN [id number] 00:00:00 Test Item Value Reference Range Interpretation Comments HEMOGLOBIN A1c (test code = 48663) 7.7 % THYROID II PROFILE (T3U, T4, T7, TSH)[id number] 00:00:00 Test Item Value Reference Range Interpretation Comments T3 UPTAKE (test code = 2817) 24.7 % T4 (THYROXINE) (test code = 3.7 UG/DL 2819) CALCULATED T7 (FTI) (test code = 0.91 2820) TSH (test code = 2821) <0.10 UIU/ML CBC W/AUTO [id number] 00:00:00 Test Item Value Reference Range Interpretation [...] code = 1015) 224 K/UL CBC W/AUTO [id number] 00:00:00 Test Item Value Reference Range Interpretation [...] code = 1015) 224 K/UL CBC W/AUTO [id number] 00:00:00 Test Item Value Reference Range Interpretation [...] TSH (test code = 2821) <0.10 UIU/ML [id number] 00:00:00 Test Item Value Reference Range Interpretation Comments MAGNESIUM (test code = 2226) 1.4 MG/DL [id number] 00:00:00 Test Item Value Reference Range Interpretation Comments MAGNESIUM (test code = 2226) 1.4 MG/DL [id number] 00:00:00 Test Item Value Reference Range Interpretation Comments MAGNESIUM (test code = 2226) 1.4 MG/DL COMPREHENSIVE METABOLIC [id number] 00:00:00 Test Item Value Reference Range Interpretation Comments GLUCOSE (test code = 2217) 234 MG/DL BUN (test code = 2208) 17 MG/DL CREATININE (test code = 2214) 0.54 MG/DL eGFR AMER. (test code 139 ML/MIN/1.73 = 68210) eGFR NON- AMER. (test 120 ML/MIN/1.73 code = 70000) CALC BUN/CREAT (test code = 31 RATIO [...] = 0.2 MG/DL 220) ALKALINE PHOSPHATASE (test 53 U/L code = 2204) AST (test code = 2218) 16 U/L ALT (test code = 2219) 22 U/L COMPREHENSIVE METABOLIC [id number] 00:00:00 Test Item Value Reference Range Interpretation Comments GLUCOSE (test code = 2217) 234 MG/DL BUN (test code = 2208) 17 MG/DL CREATININE (test code = 2214) 0.54 MG/DL eGFR AMER. (test code 139 ML/MIN/1.73 = 78653) eGFR NON- AMER. (test 120 ML/MIN/1.73 code = 89741) CALC BUN/CREAT (test code = 31 RATIO [...] (test code = 2219) 22 U/L HEMOGLOBIN [id number] 00:00:00 Test Item Value Reference Range Interpretation Comments HEMOGLOBIN A1c (test code = 43677) 7.7 % HEMOGLOBIN [id number] 00:00:00 Test Item Value Reference Range Interpretation Comments HEMOGLOBIN A1c (test code = 49094) 7.7 % HEMOGLOBIN [id number] 00:00:00 Test Item Value Reference Range Interpretation Comments HEMOGLOBIN A1c (test code = 72035) 7.7 % CBC W/AUTO [id number] 00:00:00 Test Item Value Reference Range Interpretation [...] code = 1015) 224 K/UL CBC W/AUTO [id number] 00:00:00 Test Item Value Reference Range Interpretation [...] code = 1015) 224 K/UL CBC W/AUTO [id number] 00:00:00 Test Item Value Reference Range Interpretation [...] TSH (test code = 2821) <0.10 UIU/ML [id number] 00:00:00 Test Item Value Reference Range Interpretation Comments MAGNESIUM (test code = 2226) 1.4 MG/DL [id number] 00:00:00 Test Item Value Reference Range Interpretation Comments MAGNESIUM (test code = 2226) 1.4 MG/DL [id number] 00:00:00 Test Item Value Reference Range Interpretation Comments MAGNESIUM (test code = 2226) 1.4 MG/DL COMPREHENSIVE METABOLIC [id number] 00:00:00 Test Item Value Reference Range Interpretation Comments GLUCOSE (test code = 2217) 234 MG/DL BUN (test code = 2208) 17 MG/DL CREATININE (test code = 2214) 0.54 MG/DL eGFR AMER. (test code 139 ML/MIN/1.73 = 26085) eGFR NON- AMER. (test 120 ML/MIN/1.73 code = 71152) CALC BUN/CREAT (test code = 31 RATIO [...] code = 2219) 22 U/L COMPREHENSIVE METABOLIC [id number] 00:00:00 Test Item Value Reference Range Interpretation Comments GLUCOSE (test code = 2217) 234 MG/DL BUN (test code = 2208) 17 MG/DL CREATININE (test code = 2214) 0.54 MG/DL eGFR AMER. (test code 139 ML/MIN/1.73 = 12119) eGFR NON- AMER. (test 120 ML/MIN/1.73 code = 75053) CALC BUN/CREAT (test code = 31 RATIO [...] (test code = 2219) 22 U/L HEMOGLOBIN [id number] 00:00:00 Test Item Value Reference Range Interpretation Comments HEMOGLOBIN A1c (test code = 17378) 7.7 % HEMOGLOBIN [id number] 00:00:00 Test Item Value Reference Range Interpretation Comments HEMOGLOBIN A1c (test code = 64228) 7.7 % HEMOGLOBIN [id number] 00:00:00 Test Item Value Reference Range Interpretation Comments HEMOGLOBIN A1c (test code = 71382) 7.7 % CBC W/AUTO [id number] 00:00:00 Test Item Value Reference Range Interpretation [...] code = 1015) 224 K/UL CBC W/AUTO [id number] 00:00:00 Test Item Value Reference Range Interpretation [...] code = 1015) 224 K/UL CBC W/AUTO [id number] 00:00:00 Test Item Value Reference Range Interpretation [...] <0.10 UIU/ML MARKO (ANTI-NUCLEAR AB) WITH REFLEX [id number] 00:00:00 Test Item Value Reference Range Interpretation Comments ANTI-NUCLEAR ANTIBODIES (test code = NEGATIVE 3506) MARKO (ANTI-NUCLEAR AB) WITH REFLEX [id number] 00:00:00 Test Item Value Reference Range Interpretation Comments ANTI-NUCLEAR ANTIBODIES (test code = NEGATIVE 3506) DHEA [id number] 00:00:00 Test Item Value Reference Range Interpretation Comments DHEA SULFATE (test code = 4225) 77 UG/DL DHEA [id number] 00:00:00 Test Item Value Reference Range Interpretation Comments DHEA SULFATE (test code = 4225) 77 UG/DL MARKO (ANTI-NUCLEAR AB) WITH REFLEX [id number] 00:00:00 Test Item Value Reference Range Interpretation Comments ANTI-NUCLEAR ANTIBODIES (test code = NEGATIVE 3506) MARKO (ANTI-NUCLEAR AB) WITH REFLEX [id number] 00:00:00 Test Item Value Reference Range Interpretation Comments ANTI-NUCLEAR ANTIBODIES (test code = NEGATIVE 3506) DHEA [id number] 00:00:00 Test Item Value Reference Range Interpretation Comments DHEA SULFATE (test code = 4225) 77 UG/DL DHEA [id number] 00:00:00 Test Item Value Reference Range Interpretation Comments DHEA SULFATE (test code = 4225) 77 UG/DL MARKO (ANTI-NUCLEAR AB) WITH REFLEX [id number] 00:00:00 Test Item Value Reference Range Interpretation Comments ANTI-NUCLEAR ANTIBODIES (test code = NEGATIVE 3506) MARKO (ANTI-NUCLEAR AB) WITH REFLEX [id number] 00:00:00 Test Item Value Reference Range Interpretation Comments ANTI-NUCLEAR ANTIBODIES (test code = NEGATIVE 3506) DHEA [id number] 00:00:00 Test Item Value Reference Range Interpretation Comments DHEA SULFATE (test code = 4225) 77 UG/DL DHEA [id number] 00:00:00 Test Item Value Reference Range Interpretation Comments DHEA SULFATE (test code = 4225) 77 UG/DL MARKO (ANTI-NUCLEAR AB) WITH REFLEX [id number] 00:00:00 Test Item Value Reference Range Interpretation Comments ANTI-NUCLEAR ANTIBODIES (test code = NEGATIVE 3506) MARKO (ANTI-NUCLEAR AB) WITH REFLEX [id number] 00:00:00 Test Item Value Reference Range Interpretation Comments ANTI-NUCLEAR ANTIBODIES (test code = NEGATIVE 3506) DHEA [id number] 00:00:00 Test Item Value Reference Range Interpretation Comments DHEA SULFATE (test code = 4225) 77 UG/DL DHEA [id number] 00:00:00 Test Item Value Reference Range Interpretation Comments DHEA SULFATE (test code = 4225) 77 UG/DL MARKO (ANTI-NUCLEAR AB) WITH REFLEX [id number] 00:00:00 Test Item Value Reference Range Interpretation Comments ANTI-NUCLEAR ANTIBODIES (test code = NEGATIVE 3506) MARKO (ANTI-NUCLEAR AB) WITH REFLEX [id number] 00:00:00 Test Item Value Reference Range Interpretation Comments ANTI-NUCLEAR ANTIBODIES (test code = NEGATIVE 3506) DHEA [id number] 00:00:00 Test Item Value Reference Range Interpretation Comments DHEA SULFATE (test code = 4225) 77 UG/DL DHEA [id number] 00:00:00 Test Item Value Reference Range Interpretation Comments DHEA SULFATE (test code = 4225) 77 UG/DL MARKO (ANTI-NUCLEAR AB) WITH REFLEX [id number] 00:00:00 Test Item Value Reference Range Interpretation Comments ANTI-NUCLEAR ANTIBODIES (test code = NEGATIVE 3506) MARKO (ANTI-NUCLEAR AB) WITH REFLEX [id number] 00:00:00 Test Item Value Reference Range Interpretation Comments ANTI-NUCLEAR ANTIBODIES (test code = NEGATIVE 3506) DHEA [id number] 00:00:00 Test Item Value Reference Range Interpretation Comments DHEA SULFATE (test code = 4225) 77 UG/DL DHEA [id number] 00:00:00 Test Item Value Reference Range Interpretation Comments DHEA SULFATE (test code = 4225) 77 UG/DL MARKO (ANTI-NUCLEAR AB) WITH REFLEX [id number] 00:00:00 Test Item Value Reference Range Interpretation Comments ANTI-NUCLEAR ANTIBODIES (test code = NEGATIVE 3506) MARKO (ANTI-NUCLEAR AB) WITH REFLEX [id number] 00:00:00 Test Item Value Reference Range Interpretation Comments ANTI-NUCLEAR ANTIBODIES (test code = NEGATIVE 3506) DHEA [id number] 00:00:00 Test Item Value Reference Range Interpretation Comments DHEA SULFATE (test code = 4225) 77 UG/DL DHEA [id number] 00:00:00 Test Item Value Reference Range Interpretation Comments DHEA SULFATE (test code = 4225) 77 UG/DL MARKO (ANTI-NUCLEAR AB) WITH REFLEX [id number] 00:00:00 Test Item Value Reference Range Interpretation Comments ANTI-NUCLEAR ANTIBODIES (test code = NEGATIVE 3506) MARKO (ANTI-NUCLEAR AB) WITH REFLEX [id number] 00:00:00 Test Item Value Reference Range Interpretation Comments ANTI-NUCLEAR ANTIBODIES (test code = NEGATIVE 3506) MARKO (ANTI-NUCLEAR AB) WITH REFLEX [id number] 00:00:00 Test Item Value Reference Range Interpretation Comments ANTI-NUCLEAR ANTIBODIES (test code = NEGATIVE 3506) DHEA [id number] 00:00:00 Test Item Value Reference Range Interpretation Comments DHEA SULFATE (test code = 4225) 77 UG/DL DHEA [id number] 00:00:00 Test Item Value Reference Range Interpretation Comments DHEA SULFATE (test code = 4225) 77 UG/DL DHEA [id number] 00:00:00 Test Item Value Reference Range Interpretation Comments DHEA SULFATE (test code = 4225) 77 UG/DL MARKO (ANTI-NUCLEAR AB) WITH REFLEX [id number] 00:00:00 Test Item Value Reference Range Interpretation Comments ANTI-NUCLEAR ANTIBODIES (test code = NEGATIVE 3506) MARKO (ANTI-NUCLEAR AB) WITH REFLEX [id number] 00:00:00 Test Item Value Reference Range Interpretation Comments ANTI-NUCLEAR ANTIBODIES (test code = NEGATIVE 3506) DHEA [id number] 00:00:00 Test Item Value Reference Range Interpretation Comments DHEA SULFATE (test code = 4225) 77 UG/DL DHEA [id number] 00:00:00 Test Item Value Reference Range Interpretation Comments DHEA SULFATE (test code = 4225) 77 UG/DL MARKO (ANTI-NUCLEAR AB) WITH REFLEX [id number] 00:00:00 Test Item Value Reference Range Interpretation Comments ANTI-NUCLEAR ANTIBODIES (test code = NEGATIVE 3506) MARKO (ANTI-NUCLEAR AB) WITH REFLEX [id number] 00:00:00 Test Item Value Reference Range Interpretation Comments ANTI-NUCLEAR ANTIBODIES (test code = NEGATIVE 3506) DHEA [id number] 00:00:00 Test Item Value Reference Range Interpretation Comments DHEA SULFATE (test code = 4225) 77 UG/DL DHEA [id number] 00:00:00 Test Item Value Reference Range Interpretation Comments DHEA SULFATE (test code = 4225) 77 UG/DL VITAMIN D,1,99-[id number] 00:00:00 Test Item Value Reference Range Interpretation Comments VITAMIN D,1,25-DIHYDROXY (test 11.3 PG/ML code = 4960) VITAMIN D,1,72-[id number] 00:00:00 Test Item Value Reference Range Interpretation Comments VITAMIN D,1,25-DIHYDROXY (test 11.3 PG/ML code = 4960) VITAMIN B 12 AND FOLIC [id number] 00:00:00 Test Item Value Reference Range Interpretation Comments VITAMIN B-12 (test code = 2840) 925 PG/ML FOLIC ACID (test code = 2695) >24.0 NG/ML VITAMIN B 12 AND FOLIC [id number] 00:00:00 Test Item Value Reference Range Interpretation Comments VITAMIN B-12 (test code = 2840) 925 PG/ML FOLIC ACID (test code = 2695) >24.0 NG/ML THYROID II PROFILE (T3U, T4, T7, TSH)2016-03-22 00:00:00 Test Item Value Reference Range Interpretation Comments T3 UPTAKE (test code = 2817) 31.0 % T4 (THYROXINE) (test code = 2819) 7.4 UG/DL CALCULATED T7 (FTI) (test code = 2.29 7670) TSH (test code = 2821) 0.4 UIU/ML THYROID II PROFILE (T3U, T4, T7, TSH)2016-03-22 00:00:00 Test Item Value Reference Range Interpretation Comments T3 UPTAKE (test code = 2817) 31.0 % T4 (THYROXINE) (test code = 2819) 7.4 UG/DL CALCULATED T7 (FTI) (test code = 2.29 2820) TSH (test code = 2821) 0.4 UIU/ML LIPID [id number] 00:00:00 Test Item Value Reference Range Interpretation Comments CHOLESTEROL (test code = 2210) 172 MG/DL TRIGLYCERIDES (test code = 2232) 136 MG/DL HDL CHOLESTEROL (test code = 2220) 44 MG/DL CALC LDL CHOL (test code = 2237) 101 MG/DL RISK RATIO LDL/HDL (test code = 2.29 RATIO 2238) LIPID [id number] 00:00:00 Test Item Value Reference Range Interpretation Comments CHOLESTEROL (test code = 2210) 172 MG/DL TRIGLYCERIDES (test code = 2232) 136 MG/DL HDL CHOLESTEROL (test code = 2220) 44 MG/DL CALC LDL CHOL (test code = 2237) 101 MG/DL RISK RATIO LDL/HDL (test code = 2.29 RATIO 2238) [id number] 00:00:00 Test Item Value Reference Range Interpretation Comments TESTOSTERONE (test code = 2830) <12 NG/DL TESTOSTERONE REF RANGE (test code = (NOTE) 17645) [id number] 00:00:00 Test Item Value Reference Range Interpretation Comments TESTOSTERONE (test code = 2830) <12 NG/DL TESTOSTERONE REF RANGE (test code = (NOTE) 36091) [id number] 00:00:00 Test Item Value Reference Range Interpretation Comments PROLACTIN (test code = 2800) 5.8 NG/ML [id number] 00:00:00 Test Item Value Reference Range Interpretation Comments PROLACTIN (test code = 2800) 5.8 NG/ML FSH + LH [id number] 00:00:00 Test Item Value Reference Range Interpretation Comments FOLLICLE STIM HORMONE (test code = 8.9 MIU/ML 2700) LUTEINIZING HORMONE (test code = 6.5 MIU/ML 2776) FSH + LH [id number] 00:00:00 Test Item Value Reference Range Interpretation Comments FOLLICLE STIM HORMONE (test code = 8.9 MIU/ML 2700) LUTEINIZING HORMONE (test code = 6.5 MIU/ML 2776) VITAMIN D,1,31-[id number] 00:00:00 Test Item Value Reference Range Interpretation Comments VITAMIN D,1,25-DIHYDROXY (test 11.3 PG/ML code = 4960) VITAMIN D,1,22-[id number] 00:00:00 Test Item Value Reference Range Interpretation Comments VITAMIN D,1,25-DIHYDROXY (test 11.3 PG/ML code = 4960) VITAMIN B 12 AND FOLIC [id number] 00:00:00 Test Item Value Reference Range Interpretation Comments VITAMIN B-12 (test code = 2840) 925 PG/ML FOLIC ACID (test code = 2695) >24.0 NG/ML VITAMIN B 12 AND FOLIC [id number] 00:00:00 Test Item Value Reference Range Interpretation [...] (test code = 2821) 0.4 UIU/ML LIPID [id number] 00:00:00 Test Item Value Reference Range Interpretation Comments CHOLESTEROL (test code = 2210) 172 MG/DL TRIGLYCERIDES (test code = 2232) 136 MG/DL HDL CHOLESTEROL (test code = 2220) 44 MG/DL CALC LDL CHOL (test code = 2237) 101 MG/DL RISK RATIO LDL/HDL (test code = 2.29 RATIO 2238) LIPID [id number] 00:00:00 Test Item Value Reference Range Interpretation Comments CHOLESTEROL (test code = 2210) 172 MG/DL TRIGLYCERIDES (test code = 2232) 136 MG/DL HDL CHOLESTEROL (test code = 2220) 44 MG/DL CALC LDL CHOL (test code = 2237) 101 MG/DL RISK RATIO LDL/HDL (test code = 2.29 RATIO 2238) [id number] 00:00:00 Test Item Value Reference Range Interpretation Comments TESTOSTERONE (test code = 2830) <12 NG/DL TESTOSTERONE REF RANGE (test code = (NOTE) 23918) [id number] 00:00:00 Test Item Value Reference Range Interpretation Comments TESTOSTERONE (test code = 2830) <12 NG/DL TESTOSTERONE REF RANGE (test code = (NOTE) 13938) [id number] 00:00:00 Test Item Value Reference Range Interpretation Comments PROLACTIN (test code = 2800) 5.8 NG/ML [id number] 00:00:00 Test Item Value Reference Range Interpretation Comments PROLACTIN (test code = 2800) 5.8 NG/ML FSH + LH [id number] 00:00:00 Test Item Value Reference Range Interpretation Comments FOLLICLE STIM HORMONE (test code = 8.9 MIU/ML 2700) LUTEINIZING HORMONE (test code = 6.5 MIU/ML 2776) FSH + LH [id number] 00:00:00 Test Item Value Reference Range Interpretation Comments FOLLICLE STIM HORMONE (test code = 8.9 MIU/ML 2700) LUTEINIZING HORMONE (test code = 6.5 MIU/ML 2776) VITAMIN D,1,04-[id number] 00:00:00 Test Item Value Reference Range Interpretation Comments VITAMIN D,1,25-DIHYDROXY (test 11.3 PG/ML code = 4960) VITAMIN D,1,82-[id number] 00:00:00 Test Item Value Reference Range Interpretation Comments VITAMIN D,1,25-DIHYDROXY (test 11.3 PG/ML code = 4960) VITAMIN B 12 AND FOLIC [id number] 00:00:00 Test Item Value Reference Range Interpretation Comments VITAMIN B-12 (test code = 2840) 925 PG/ML FOLIC ACID (test code = 2695) >24.0 NG/ML VITAMIN B 12 AND FOLIC [id number] 00:00:00 Test Item Value Reference Range Interpretation [...] (test code = 2821) 0.4 UIU/ML LIPID [id number] 00:00:00 Test Item Value Reference Range Interpretation Comments CHOLESTEROL (test code = 2210) 172 MG/DL TRIGLYCERIDES (test code = 2232) 136 MG/DL HDL CHOLESTEROL (test code = 2220) 44 MG/DL CALC LDL CHOL (test code = 2237) 101 MG/DL RISK RATIO LDL/HDL (test code = 2.29 RATIO 2238) LIPID [id number] 00:00:00 Test Item Value Reference Range Interpretation Comments CHOLESTEROL (test code = 2210) 172 MG/DL TRIGLYCERIDES (test code = 2232) 136 MG/DL HDL CHOLESTEROL (test code = 2220) 44 MG/DL CALC LDL CHOL (test code = 2237) 101 MG/DL RISK RATIO LDL/HDL (test code = 2.29 RATIO 2238) [id number] 00:00:00 Test Item Value Reference Range Interpretation Comments TESTOSTERONE (test code = 2830) <12 NG/DL TESTOSTERONE REF RANGE (test code = (NOTE) 22315) [id number] 00:00:00 Test Item Value Reference Range Interpretation Comments TESTOSTERONE (test code = 2830) <12 NG/DL TESTOSTERONE REF RANGE (test code = (NOTE) 05281) [id number] 00:00:00 Test Item Value Reference Range Interpretation Comments PROLACTIN (test code = 2800) 5.8 NG/ML [id number] 00:00:00 Test Item Value Reference Range Interpretation Comments PROLACTIN (test code = 2800) 5.8 NG/ML FSH + LH [id number] 00:00:00 Test Item Value Reference Range Interpretation Comments FOLLICLE STIM HORMONE (test code = 8.9 MIU/ML 2700) LUTEINIZING HORMONE (test code = 6.5 MIU/ML 2776) FSH + LH [id number] 00:00:00 Test Item Value Reference Range Interpretation Comments FOLLICLE STIM HORMONE (test code = 8.9 MIU/ML 2700) LUTEINIZING HORMONE (test code = 6.5 MIU/ML 2776) VITAMIN D,1,71-[id number] 00:00:00 Test Item Value Reference Range Interpretation Comments VITAMIN D,1,25-DIHYDROXY (test 11.3 PG/ML code = 4960) VITAMIN D,1,16-[id number] 00:00:00 Test Item Value Reference Range Interpretation Comments VITAMIN D,1,25-DIHYDROXY (test 11.3 PG/ML code = 4960) VITAMIN B 12 AND FOLIC [id number] 00:00:00 Test Item Value Reference Range Interpretation Comments VITAMIN B-12 (test code = 2840) 925 PG/ML FOLIC ACID (test code = 2695) >24.0 NG/ML VITAMIN B 12 AND FOLIC [id number] 00:00:00 Test Item Value Reference Range Interpretation Comments VITAMIN B-12 (test code = 2840) 925 PG/ML FOLIC ACID (test code = 2695) >24.0 NG/ML THYROID II PROFILE (T3U, T4, T7, TSH)2016-03-22 00:00:00 Test Item Value Reference Range Interpretation Comments T3 UPTAKE (test code = 2817) 31.0 % T4 (THYROXINE) (test code = 2819) 7.4 UG/DL CALCULATED T7 (FTI) (test code = 2.29 4240) TSH (test code = 2821) 0.4 UIU/ML THYROID II PROFILE (T3U, T4, T7, TSH)2016-03-22 00:00:00 Test Item Value Reference Range Interpretation Comments T3 UPTAKE (test code = 2817) 31.0 % T4 (THYROXINE) (test code = 2819) 7.4 UG/DL CALCULATED T7 (FTI) (test code = 2.29 2820) TSH (test code = 2821) 0.4 UIU/ML LIPID [id number] 00:00:00 Test Item Value Reference Range Interpretation Comments CHOLESTEROL (test code = 2210) 172 MG/DL TRIGLYCERIDES (test code = 2232) 136 MG/DL HDL CHOLESTEROL (test code = 2220) 44 MG/DL CALC LDL CHOL (test code = 2237) 101 MG/DL RISK RATIO LDL/HDL (test code = 2.29 RATIO 2238) LIPID [id number] 00:00:00 Test Item Value Reference Range Interpretation Comments CHOLESTEROL (test code = 2210) 172 MG/DL TRIGLYCERIDES (test code = 2232) 136 MG/DL HDL CHOLESTEROL (test code = 2220) 44 MG/DL CALC LDL CHOL (test code = 2237) 101 MG/DL RISK RATIO LDL/HDL (test code = 2.29 RATIO 2238) [id number] 00:00:00 Test Item Value Reference Range Interpretation Comments TESTOSTERONE (test code = 2830) <12 NG/DL TESTOSTERONE REF RANGE (test code = (NOTE) 29057) [id number] 00:00:00 Test Item Value Reference Range Interpretation Comments TESTOSTERONE (test code = 2830) <12 NG/DL TESTOSTERONE REF RANGE (test code = (NOTE) 62775) [id number] 00:00:00 Test Item Value Reference Range Interpretation Comments PROLACTIN (test code = 2800) 5.8 NG/ML [id number] 00:00:00 Test Item Value Reference Range Interpretation Comments PROLACTIN (test code = 2800) 5.8 NG/ML FSH + LH [id number] 00:00:00 Test Item Value Reference Range Interpretation Comments FOLLICLE STIM HORMONE (test code = 8.9 MIU/ML 2700) LUTEINIZING HORMONE (test code = 6.5 MIU/ML 2776) FSH + LH [id number] 00:00:00 Test Item Value Reference Range Interpretation Comments FOLLICLE STIM HORMONE (test code = 8.9 MIU/ML 2700) LUTEINIZING HORMONE (test code = 6.5 MIU/ML 2776) VITAMIN D,1,40-[id number] 00:00:00 Test Item Value Reference Range Interpretation Comments VITAMIN D,1,25-DIHYDROXY (test 11.3 PG/ML code = 4960) VITAMIN D,1,52-[id number] 00:00:00 Test Item Value Reference Range Interpretation Comments VITAMIN D,1,25-DIHYDROXY (test 11.3 PG/ML code = 4960) VITAMIN B 12 AND FOLIC [id number] 00:00:00 Test Item Value Reference Range Interpretation Comments VITAMIN B-12 (test code = 2840) 925 PG/ML FOLIC ACID (test code = 2695) >24.0 NG/ML VITAMIN B 12 AND FOLIC [id number] 00:00:00 Test Item Value Reference Range Interpretation [...] (test code = 2821) 0.4 UIU/ML LIPID [id number] 00:00:00 Test Item Value Reference Range Interpretation Comments CHOLESTEROL (test code = 2210) 172 MG/DL TRIGLYCERIDES (test code = 2232) 136 MG/DL HDL CHOLESTEROL (test code = 2220) 44 MG/DL CALC LDL CHOL (test code = 2237) 101 MG/DL RISK RATIO LDL/HDL (test code = 2.29 RATIO 2238) LIPID [id number] 00:00:00 Test Item Value Reference Range Interpretation Comments CHOLESTEROL (test code = 2210) 172 MG/DL TRIGLYCERIDES (test code = 2232) 136 MG/DL HDL CHOLESTEROL (test code = 2220) 44 MG/DL CALC LDL CHOL (test code = 2237) 101 MG/DL RISK RATIO LDL/HDL (test code = 2.29 RATIO 2238) [id number] 00:00:00 Test Item Value Reference Range Interpretation Comments TESTOSTERONE (test code = 2830) <12 NG/DL TESTOSTERONE REF RANGE (test code = (NOTE) 75981) [id number] 00:00:00 Test Item Value Reference Range Interpretation Comments TESTOSTERONE (test code = 2830) <12 NG/DL TESTOSTERONE REF RANGE (test code = (NOTE) 38210) [id number] 00:00:00 Test Item Value Reference Range Interpretation Comments PROLACTIN (test code = 2800) 5.8 NG/ML [id number] 00:00:00 Test Item Value Reference Range Interpretation Comments PROLACTIN (test code = 2800) 5.8 NG/ML FSH + LH [id number] 00:00:00 Test Item Value Reference Range Interpretation Comments FOLLICLE STIM HORMONE (test code = 8.9 MIU/ML 2700) LUTEINIZING HORMONE (test code = 6.5 MIU/ML 2776) FSH + LH [id number] 00:00:00 Test Item Value Reference Range Interpretation Comments FOLLICLE STIM HORMONE (test code = 8.9 MIU/ML 2700) LUTEINIZING HORMONE (test code = 6.5 MIU/ML 2776) VITAMIN D,1,58-[id number] 00:00:00 Test Item Value Reference Range Interpretation Comments VITAMIN D,1,25-DIHYDROXY (test 11.3 PG/ML code = 4960) VITAMIN D,1,78-[id number] 00:00:00 Test Item Value Reference Range Interpretation Comments VITAMIN D,1,25-DIHYDROXY (test 11.3 PG/ML code = 4960) VITAMIN B 12 AND FOLIC [id number] 00:00:00 Test Item Value Reference Range Interpretation Comments VITAMIN B-12 (test code = 2840) 925 PG/ML FOLIC ACID (test code = 2695) >24.0 NG/ML VITAMIN B 12 AND FOLIC [id number] 00:00:00 Test Item Value Reference Range Interpretation [...] (test code = 2821) 0.4 UIU/ML LIPID [id number] 00:00:00 Test Item Value Reference Range Interpretation Comments CHOLESTEROL (test code = 2210) 172 MG/DL TRIGLYCERIDES (test code = 2232) 136 MG/DL HDL CHOLESTEROL (test code = 2220) 44 MG/DL CALC LDL CHOL (test code = 2237) 101 MG/DL RISK RATIO LDL/HDL (test code = 2.29 RATIO 2238) LIPID [id number] 00:00:00 Test Item Value Reference Range Interpretation Comments CHOLESTEROL (test code = 2210) 172 MG/DL TRIGLYCERIDES (test code = 2232) 136 MG/DL HDL CHOLESTEROL (test code = 2220) 44 MG/DL CALC LDL CHOL (test code = 2237) 101 MG/DL RISK RATIO LDL/HDL (test code = 2.29 RATIO 2238) [id number] 00:00:00 Test Item Value Reference Range Interpretation Comments TESTOSTERONE (test code = 2830) <12 NG/DL TESTOSTERONE REF RANGE (test code = (NOTE) 32849) [id number] 00:00:00 Test Item Value Reference Range Interpretation Comments TESTOSTERONE (test code = 2830) <12 NG/DL TESTOSTERONE REF RANGE (test code = (NOTE) 73841) [id number] 00:00:00 Test Item Value Reference Range Interpretation Comments PROLACTIN (test code = 2800) 5.8 NG/ML [id number] 00:00:00 Test Item Value Reference Range Interpretation Comments PROLACTIN (test code = 2800) 5.8 NG/ML [facility]SH + LH [id number] 00:00:00 Test Item Value Reference Range Interpretation Comments FOLLICLE STIM HORMONE (test code = 8.9 MIU/ML 2700) LUTEINIZING HORMONE (test code = 6.5 MIU/ML 2776) FSH + LH [id number] 00:00:00 Test Item Value Reference Range Interpretation Comments FOLLICLE STIM HORMONE (test code = 8.9 MIU/ML 2700) LUTEINIZING HORMONE (test code = 6.5 MIU/ML 2776) VITAMIN D,1,72-[id number] 00:00:00 Test Item Value Reference Range Interpretation Comments VITAMIN D,1,25-DIHYDROXY (test 11.3 PG/ML code = 4960) VITAMIN D,1,33-[id number] 00:00:00 Test Item Value Reference Range Interpretation Comments VITAMIN D,1,25-DIHYDROXY (test 11.3 PG/ML code = 4960) VITAMIN B 12 AND FOLIC [id number] 00:00:00 Test Item Value Reference Range Interpretation Comments VITAMIN B-12 (test code = 2840) 925 PG/ML FOLIC ACID (test code = 2695) >24.0 NG/ML VITAMIN B 12 AND FOLIC [id number] 00:00:00 Test Item Value Reference Range Interpretation Comments VITAMIN B-12 (test code = 2840) 925 PG/ML FOLIC ACID (test code = 2695) >24.0 NG/ML THYROID II PROFILE (T3U, T4, T7, TSH)2016-03-22 00:00:00 Test Item Value Reference Range Interpretation Comments T3 UPTAKE (test code = 2817) 31.0 % T4 (THYROXINE) (test code = 2819) 7.4 UG/DL CALCULATED T7 (FTI) (test code = 2.29 1350) TSH (test code = 2821) 0.4 UIU/ML THYROID II PROFILE (T3U, T4, T7, TSH)2016-03-22 00:00:00 Test Item Value Reference Range Interpretation Comments T3 UPTAKE (test code = 2817) 31.0 % T4 (THYROXINE) (test code = 2819) 7.4 UG/DL CALCULATED T7 (FTI) (test code = 2.29 2820) TSH (test code = 2821) 0.4 UIU/ML LIPID [id number] 00:00:00 Test Item Value Reference Range Interpretation Comments CHOLESTEROL (test code = 2210) 172 MG/DL TRIGLYCERIDES (test code = 2232) 136 MG/DL HDL CHOLESTEROL (test code = 2220) 44 MG/DL CALC LDL CHOL (test code = 2237) 101 MG/DL RISK RATIO LDL/HDL (test code = 2.29 RATIO 2238) LIPID [id number] 00:00:00 Test Item Value Reference Range Interpretation Comments CHOLESTEROL (test code = 2210) 172 MG/DL TRIGLYCERIDES (test code = 2232) 136 MG/DL HDL CHOLESTEROL (test code = 2220) 44 MG/DL CALC LDL CHOL (test code = 2237) 101 MG/DL RISK RATIO LDL/HDL (test code = 2.29 RATIO 2238) [id number] 00:00:00 Test Item Value Reference Range Interpretation Comments TESTOSTERONE (test code = 2830) <12 NG/DL TESTOSTERONE REF RANGE (test code = (NOTE) 89408) [id number] 00:00:00 Test Item Value Reference Range Interpretation Comments TESTOSTERONE (test code = 2830) <12 NG/DL TESTOSTERONE REF RANGE (test code = (NOTE) 80982) [id number] 00:00:00 Test Item Value Reference Range Interpretation Comments PROLACTIN (test code = 2800) 5.8 NG/ML [id number] 00:00:00 Test Item Value Reference Range Interpretation Comments PROLACTIN (test code = 2800) 5.8 NG/ML FSH + LH [id number] 00:00:00 Test Item Value Reference Range Interpretation Comments FOLLICLE STIM HORMONE (test code = 8.9 MIU/ML 2700) LUTEINIZING HORMONE (test code = 6.5 MIU/ML 2776) FSH + LH [id number] 00:00:00 Test Item Value Reference Range Interpretation Comments FOLLICLE STIM HORMONE (test code = 8.9 MIU/ML 2700) LUTEINIZING HORMONE (test code = 6.5 MIU/ML 2776) VITAMIN D,1,09-[id number] 00:00:00 Test Item Value Reference Range Interpretation Comments VITAMIN D,1,25-DIHYDROXY (test 11.3 PG/ML code = 4960) VITAMIN B 12 AND FOLIC [id number] 00:00:00 Test Item Value Reference Range Interpretation [...] (test code = 2821) 0.4 UIU/ML VITAMIN D,1,21-[id number] 00:00:00 Test Item Value Reference Range Interpretation Comments VITAMIN D,1,25-DIHYDROXY (test 11.3 PG/ML code = 4960) VITAMIN D,1,01-[id number] 00:00:00 Test Item Value Reference Range Interpretation Comments VITAMIN D,1,25-DIHYDROXY (test 11.3 PG/ML code = 4960) VITAMIN B 12 AND FOLIC [id number] 00:00:00 Test Item Value Reference Range Interpretation Comments VITAMIN B-12 (test code = 2840) 925 PG/ML FOLIC ACID (test code = 2695) >24.0 NG/ML VITAMIN B 12 AND FOLIC [id number] 00:00:00 Test Item Value Reference Range Interpretation [...] (test code = 2821) 0.4 UIU/ML LIPID [id number] 00:00:00 Test Item Value Reference Range Interpretation Comments CHOLESTEROL (test code = 2210) 172 MG/DL TRIGLYCERIDES (test code = 2232) 136 MG/DL HDL CHOLESTEROL (test code = 2220) 44 MG/DL CALC LDL CHOL (test code = 2237) 101 MG/DL RISK RATIO LDL/HDL (test code = 2.29 RATIO 2238) LIPID [id number] 00:00:00 Test Item Value Reference Range Interpretation Comments CHOLESTEROL (test code = 2210) 172 MG/DL TRIGLYCERIDES (test code = 2232) 136 MG/DL HDL CHOLESTEROL (test code = 2220) 44 MG/DL CALC LDL CHOL (test code = 2237) 101 MG/DL RISK RATIO LDL/HDL (test code = 2.29 RATIO 2238) [id number] 00:00:00 Test Item Value Reference Range Interpretation Comments TESTOSTERONE (test code = 2830) <12 NG/DL TESTOSTERONE REF RANGE (test code = (NOTE) 40214) [id number] 00:00:00 Test Item Value Reference Range Interpretation Comments TESTOSTERONE (test code = 2830) <12 NG/DL TESTOSTERONE REF RANGE (test code = (NOTE) 96829) [id number] 00:00:00 Test Item Value Reference Range Interpretation Comments PROLACTIN (test code = 2800) 5.8 NG/ML [id number] 00:00:00 Test Item Value Reference Range Interpretation Comments PROLACTIN (test code = 2800) 5.8 NG/ML FSH + LH [id number] 00:00:00 Test Item Value Reference Range Interpretation Comments FOLLICLE STIM HORMONE (test code = 8.9 MIU/ML 2700) LUTEINIZING HORMONE (test code = 6.5 MIU/ML 2776) FSH + LH [id number] 00:00:00 Test Item Value Reference Range Interpretation Comments FOLLICLE STIM HORMONE (test code = 8.9 MIU/ML 2700) LUTEINIZING HORMONE (test code = 6.5 MIU/ML 2776) LIPID [id number] 00:00:00 Test Item Value Reference Range Interpretation Comments CHOLESTEROL (test code = 2210) 172 MG/DL TRIGLYCERIDES (test code = 2232) 136 MG/DL HDL CHOLESTEROL (test code = 2220) 44 MG/DL CALC LDL CHOL (test code = 2237) 101 MG/DL RISK RATIO LDL/HDL (test code = 2.29 RATIO 2238) [id number] 00:00:00 Test Item Value Reference Range Interpretation Comments TESTOSTERONE (test code = 2830) <12 NG/DL TESTOSTERONE REF RANGE (test code = (NOTE) 38844) [id number] 00:00:00 Test Item Value Reference Range Interpretation Comments PROLACTIN (test code = 2800) 5.8 NG/ML FSH + LH [id number] 00:00:00 Test Item Value Reference Range Interpretation Comments FOLLICLE STIM HORMONE (test code = 8.9 MIU/ML 2700) LUTEINIZING HORMONE (test code = 6.5 MIU/ML 2776) VITAMIN D,1,79-[id number] 00:00:00 Test Item Value Reference Range Interpretation Comments VITAMIN D,1,25-DIHYDROXY (test 11.3 PG/ML code = 4960) VITAMIN D,1,12-[id number] 00:00:00 Test Item Value Reference Range Interpretation Comments VITAMIN D,1,25-DIHYDROXY (test 11.3 PG/ML code = 4960) VITAMIN B 12 AND FOLIC [id number] 00:00:00 Test Item Value Reference Range Interpretation Comments VITAMIN B-12 (test code = 2840) 925 PG/ML FOLIC ACID (test code = 2695) >24.0 NG/ML VITAMIN B 12 AND FOLIC [id number] 00:00:00 Test Item Value Reference Range Interpretation [...] (test code = 2821) 0.4 UIU/ML LIPID [id number] 00:00:00 Test Item Value Reference Range Interpretation Comments CHOLESTEROL (test code = 2210) 172 MG/DL TRIGLYCERIDES (test code = 2232) 136 MG/DL HDL CHOLESTEROL (test code = 2220) 44 MG/DL CALC LDL CHOL (test code = 2237) 101 MG/DL RISK RATIO LDL/HDL (test code = 2.29 RATIO 2238) LIPID [id number] 00:00:00 Test Item Value Reference Range Interpretation Comments CHOLESTEROL (test code = 2210) 172 MG/DL TRIGLYCERIDES (test code = 2232) 136 MG/DL HDL CHOLESTEROL (test code = 2220) 44 MG/DL CALC LDL CHOL (test code = 2237) 101 MG/DL RISK RATIO LDL/HDL (test code = 2.29 RATIO 2238) [id number] 00:00:00 Test Item Value Reference Range Interpretation Comments TESTOSTERONE (test code = 2830) <12 NG/DL TESTOSTERONE REF RANGE (test code = (NOTE) 57289) [id number] 00:00:00 Test Item Value Reference Range Interpretation Comments TESTOSTERONE (test code = 2830) <12 NG/DL TESTOSTERONE REF RANGE (test code = (NOTE) 23561) [id number] 00:00:00 Test Item Value Reference Range Interpretation Comments PROLACTIN (test code = 2800) 5.8 NG/ML [id number] 00:00:00 Test Item Value Reference Range Interpretation Comments PROLACTIN (test code = 2800) 5.8 NG/ML FSH + LH [id number] 00:00:00 Test Item Value Reference Range Interpretation Comments FOLLICLE STIM HORMONE (test code = 8.9 MIU/ML 2700) LUTEINIZING HORMONE (test code = 6.5 MIU/ML 2776) FSH + LH [id number] 00:00:00 Test Item Value Reference Range Interpretation Comments FOLLICLE STIM HORMONE (test code = 8.9 MIU/ML 2700) LUTEINIZING HORMONE (test code = 6.5 MIU/ML 2776) VITAMIN D,1,11-[id number] 00:00:00 Test Item Value Reference Range Interpretation Comments VITAMIN D,1,25-DIHYDROXY (test 11.3 PG/ML code = 4960) VITAMIN D,1,46-[id number] 00:00:00 Test Item Value Reference Range Interpretation Comments VITAMIN D,1,25-DIHYDROXY (test 11.3 PG/ML code = 4960) VITAMIN B 12 AND FOLIC [id number] 00:00:00 Test Item Value Reference Range Interpretation Comments VITAMIN B-12 (test code = 2840) 925 PG/ML FOLIC ACID (test code = 2695) >24.0 NG/ML VITAMIN B 12 AND FOLIC [id number] 00:00:00 Test Item Value Reference Range Interpretation [...] (test code = 2821) 0.4 UIU/ML LIPID [id number] 00:00:00 Test Item Value Reference Range Interpretation Comments CHOLESTEROL (test code = 2210) 172 MG/DL TRIGLYCERIDES (test code = 2232) 136 MG/DL HDL CHOLESTEROL (test code = 2220) 44 MG/DL CALC LDL CHOL (test code = 2237) 101 MG/DL RISK RATIO LDL/HDL (test code = 2.29 RATIO 2238) LIPID [id number] 00:00:00 Test Item Value Reference Range Interpretation Comments CHOLESTEROL (test code = 2210) 172 MG/DL TRIGLYCERIDES (test code = 2232) 136 MG/DL HDL CHOLESTEROL (test code = 2220) 44 MG/DL CALC LDL CHOL (test code = 2237) 101 MG/DL RISK RATIO LDL/HDL (test code = 2.29 RATIO 2238) [id number] 00:00:00 Test Item Value Reference Range Interpretation Comments TESTOSTERONE (test code = 2830) <12 NG/DL TESTOSTERONE REF RANGE (test code = (NOTE) 89814) [id number] 00:00:00 Test Item Value Reference Range Interpretation Comments TESTOSTERONE (test code = 2830) <12 NG/DL TESTOSTERONE REF RANGE (test code = (NOTE) 34482) [id number] 00:00:00 Test Item Value Reference Range Interpretation Comments PROLACTIN (test code = 2800) 5.8 NG/ML [id number] 00:00:00 Test Item Value Reference Range Interpretation Comments PROLACTIN (test code = 2800) 5.8 NG/ML FSH + LH [id number] 00:00:00 Test Item Value Reference Range Interpretation Comments FOLLICLE STIM HORMONE (test code = 8.9 MIU/ML 2700) LUTEINIZING HORMONE (test code = 6.5 MIU/ML 2776) FSH + LH [id number] 00:00:00 Test Item Value Reference Range Interpretation Comments FOLLICLE STIM HORMONE (test code = 8.9 MIU/ML 2700) LUTEINIZING HORMONE (test code = 6.5 MIU/ML 2776) SEDIMENTATION [id number] 00:00:00 Test Item Value Reference Range Interpretation Comments SEDIMENTATION RATE (test code = 35 MM/HOUR 1017) SEDIMENTATION [id number] 00:00:00 Test Item Value Reference Range Interpretation Comments SEDIMENTATION RATE (test code = 35 MM/HOUR 1017) CBC W/AUTO [id number] 00:00:00 Test Item Value Reference Range Interpretation [...] code = 1015) 246 K/UL CBC W/AUTO [id number] 00:00:00 Test Item Value Reference Range Interpretation [...] code = 1015) 246 K/UL CBC W/AUTO [id number] 00:00:00 Test Item Value Reference Range Interpretation [...] (test code = 1015) 246 K/UL HEMOGLOBIN [id number] 00:00:00 Test Item Value Reference Range Interpretation Comments HEMOGLOBIN A1c (test code = 24673) 6.2 % HEMOGLOBIN [id number] 00:00:00 Test Item Value Reference Range Interpretation Comments HEMOGLOBIN A1c (test code = 39785) 6.2 % HEMOGLOBIN [id number] 00:00:00 Test Item Value Reference Range Interpretation Comments HEMOGLOBIN A1c (test code = 26572) 6.2 % SEDIMENTATION [id number] 00:00:00 Test Item Value Reference Range Interpretation Comments SEDIMENTATION RATE (test code = 35 MM/HOUR 1017) SEDIMENTATION [id number] 00:00:00 Test Item Value Reference Range Interpretation Comments SEDIMENTATION RATE (test code = 35 MM/HOUR 1017) CBC W/AUTO [id number] 00:00:00 Test Item Value Reference Range Interpretation [...] code = 1015) 246 K/UL CBC W/AUTO [id number] 00:00:00 Test Item Value Reference Range Interpretation [...] code = 1015) 246 K/UL CBC W/AUTO [id number] 00:00:00 Test Item Value Reference Range Interpretation [...] (test code = 1015) 246 K/UL HEMOGLOBIN [id number] 00:00:00 Test Item Value Reference Range Interpretation Comments HEMOGLOBIN A1c (test code = 95556) 6.2 % HEMOGLOBIN [id number] 00:00:00 Test Item Value Reference Range Interpretation Comments HEMOGLOBIN A1c (test code = 43150) 6.2 % HEMOGLOBIN [id number] 00:00:00 Test Item Value Reference Range Interpretation Comments HEMOGLOBIN A1c (test code = 80940) 6.2 % SEDIMENTATION [id number] 00:00:00 Test Item Value Reference Range Interpretation Comments SEDIMENTATION RATE (test code = 35 MM/HOUR 1017) SEDIMENTATION [id number] 00:00:00 Test Item Value Reference Range Interpretation Comments SEDIMENTATION RATE (test code = 35 MM/HOUR 1017) CBC W/AUTO [id number] 00:00:00 Test Item Value Reference Range Interpretation [...] code = 1015) 246 K/UL CBC W/AUTO [id number] 00:00:00 Test Item Value Reference Range Interpretation [...] code = 1015) 246 K/UL CBC W/AUTO [id number] 00:00:00 Test Item Value Reference Range Interpretation [...] (test code = 1015) 246 K/UL HEMOGLOBIN [id number] 00:00:00 Test Item Value Reference Range Interpretation Comments HEMOGLOBIN A1c (test code = 34961) 6.2 % HEMOGLOBIN [id number] 00:00:00 Test Item Value Reference Range Interpretation Comments HEMOGLOBIN A1c (test code = 97236) 6.2 % HEMOGLOBIN [id number] 00:00:00 Test Item Value Reference Range Interpretation Comments HEMOGLOBIN A1c (test code = 36566) 6.2 % SEDIMENTATION [id number] 00:00:00 Test Item Value Reference Range Interpretation Comments SEDIMENTATION RATE (test code = 35 MM/HOUR 1017) SEDIMENTATION [id number] 00:00:00 Test Item Value Reference Range Interpretation Comments SEDIMENTATION RATE (test code = 35 MM/HOUR 1017) CBC W/AUTO [id number] 00:00:00 Test Item Value Reference Range Interpretation [...] code = 1015) 246 K/UL CBC W/AUTO [id number] 00:00:00 Test Item Value Reference Range Interpretation [...] code = 1015) 246 K/UL CBC W/AUTO [id number] 00:00:00 Test Item Value Reference Range Interpretation [...] (test code = 1015) 246 K/UL HEMOGLOBIN [id number] 00:00:00 Test Item Value Reference Range Interpretation Comments HEMOGLOBIN A1c (test code = 31692) 6.2 % HEMOGLOBIN [id number] 00:00:00 Test Item Value Reference Range Interpretation Comments HEMOGLOBIN A1c (test code = 95843) 6.2 % HEMOGLOBIN [id number] 00:00:00 Test Item Value Reference Range Interpretation Comments HEMOGLOBIN A1c (test code = 72768) 6.2 % SEDIMENTATION [id number] 00:00:00 Test Item Value Reference Range Interpretation Comments SEDIMENTATION RATE (test code = 35 MM/HOUR 1017) SEDIMENTATION [id number] 00:00:00 Test Item Value Reference Range Interpretation Comments SEDIMENTATION RATE (test code = 35 MM/HOUR 1017) CBC W/AUTO [id number] 00:00:00 Test Item Value Reference Range Interpretation [...] code = 1015) 246 K/UL CBC W/AUTO [id number] 00:00:00 Test Item Value Reference Range Interpretation [...] code = 1015) 246 K/UL CBC W/AUTO [id number] 00:00:00 Test Item Value Reference Range Interpretation [...] (test code = 1015) 246 K/UL HEMOGLOBIN [id number] 00:00:00 Test Item Value Reference Range Interpretation Comments HEMOGLOBIN A1c (test code = 71563) 6.2 % HEMOGLOBIN [id number] 00:00:00 Test Item Value Reference Range Interpretation Comments HEMOGLOBIN A1c (test code = 05521) 6.2 % HEMOGLOBIN [id number] 00:00:00 Test Item Value Reference Range Interpretation Comments HEMOGLOBIN A1c (test code = 81969) 6.2 % SEDIMENTATION [id number] 00:00:00 Test Item Value Reference Range Interpretation Comments SEDIMENTATION RATE (test code = 35 MM/HOUR 1017) SEDIMENTATION [id number] 00:00:00 Test Item Value Reference Range Interpretation Comments SEDIMENTATION RATE (test code = 35 MM/HOUR 1017) CBC W/AUTO [id number] 00:00:00 Test Item Value Reference Range Interpretation [...] code = 1015) 246 K/UL CBC W/AUTO [id number] 00:00:00 Test Item Value Reference Range Interpretation [...] code = 1015) 246 K/UL CBC W/AUTO [id number] 00:00:00 Test Item Value Reference Range Interpretation [...] (test code = 1015) 246 K/UL HEMOGLOBIN [id number] 00:00:00 Test Item Value Reference Range Interpretation Comments HEMOGLOBIN A1c (test code = 27689) 6.2 % HEMOGLOBIN [id number] 00:00:00 Test Item Value Reference Range Interpretation Comments HEMOGLOBIN A1c (test code = 81962) 6.2 % HEMOGLOBIN [id number] 00:00:00 Test Item Value Reference Range Interpretation Comments HEMOGLOBIN A1c (test code = 05120) 6.2 % SEDIMENTATION [id number] 00:00:00 Test Item Value Reference Range Interpretation Comments SEDIMENTATION RATE (test code = 35 MM/HOUR 1017) SEDIMENTATION [id number] 00:00:00 Test Item Value Reference Range Interpretation Comments SEDIMENTATION RATE (test code = 35 MM/HOUR 1017) CBC W/AUTO [id number] 00:00:00 Test Item Value Reference Range Interpretation [...] code = 1015) 246 K/UL CBC W/AUTO [id number] 00:00:00 Test Item Value Reference Range Interpretation [...] code = 1015) 246 K/UL CBC W/AUTO [id number] 00:00:00 Test Item Value Reference Range Interpretation [...] (test code = 1015) 246 K/UL HEMOGLOBIN [id number] 00:00:00 Test Item Value Reference Range Interpretation Comments HEMOGLOBIN A1c (test code = 32154) 6.2 % HEMOGLOBIN [id number] 00:00:00 Test Item Value Reference Range Interpretation Comments HEMOGLOBIN A1c (test code = 93788) 6.2 % HEMOGLOBIN [id number] 00:00:00 Test Item Value Reference Range Interpretation Comments HEMOGLOBIN A1c (test code = 98447) 6.2 % SEDIMENTATION [id number] 00:00:00 Test Item Value Reference Range Interpretation Comments SEDIMENTATION RATE (test code = 35 MM/HOUR 1017) SEDIMENTATION [id number] 00:00:00 Test Item Value Reference Range Interpretation Comments SEDIMENTATION RATE (test code = 35 MM/HOUR 1017) SEDIMENTATION [id number] 00:00:00 Test Item Value Reference Range Interpretation Comments SEDIMENTATION RATE (test code = 35 MM/HOUR 1017) CBC W/AUTO [id number] 00:00:00 Test Item Value Reference Range Interpretation [...] code = 1015) 246 K/UL CBC W/AUTO [id number] 00:00:00 Test Item Value Reference Range Interpretation [...] code = 1015) 246 K/UL CBC W/AUTO [id number] 00:00:00 Test Item Value Reference Range Interpretation [...] code = 1015) 246 K/UL CBC W/AUTO [id number] 00:00:00 Test Item Value Reference Range Interpretation [...] (test code = 1015) 246 K/UL HEMOGLOBIN [id number] 00:00:00 Test Item Value Reference Range Interpretation Comments HEMOGLOBIN A1c (test code = 38617) 6.2 % HEMOGLOBIN [id number] 00:00:00 Test Item Value Reference Range Interpretation Comments HEMOGLOBIN A1c (test code = 25667) 6.2 % HEMOGLOBIN [id number] 00:00:00 Test Item Value Reference Range Interpretation Comments HEMOGLOBIN A1c (test code = 77382) 6.2 % CBC W/AUTO [id number] 00:00:00 Test Item Value Reference Range Interpretation [...] (test code = 1015) 246 K/UL HEMOGLOBIN [id number] 00:00:00 Test Item Value Reference Range Interpretation Comments HEMOGLOBIN A1c (test code = 72835) 6.2 % HEMOGLOBIN [id number] 00:00:00 Test Item Value Reference Range Interpretation Comments HEMOGLOBIN A1c (test code = 02756) 6.2 % SEDIMENTATION [id number] 00:00:00 Test Item Value Reference Range Interpretation Comments SEDIMENTATION RATE (test code = 35 MM/HOUR 1017) SEDIMENTATION [id number] 00:00:00 Test Item Value Reference Range Interpretation Comments SEDIMENTATION RATE (test code = 35 MM/HOUR 1017) CBC W/AUTO [id number] 00:00:00 Test Item Value Reference Range Interpretation [...] code = 1015) 246 K/UL CBC W/AUTO [id number] 00:00:00 Test Item Value Reference Range Interpretation [...] code = 1015) 246 K/UL CBC W/AUTO [id number] 00:00:00 Test Item Value Reference Range Interpretation [...] (test code = 1015) 246 K/UL HEMOGLOBIN [id number] 00:00:00 Test Item Value Reference Range Interpretation Comments HEMOGLOBIN A1c (test code = 54018) 6.2 % HEMOGLOBIN [id number] 00:00:00 Test Item Value Reference Range Interpretation Comments HEMOGLOBIN A1c (test code = 27313) 6.2 % HEMOGLOBIN [id number] 00:00:00 Test Item Value Reference Range Interpretation Comments HEMOGLOBIN A1c (test code = 29404) 6.2 % SEDIMENTATION [id number] 00:00:00 Test Item Value Reference Range Interpretation Comments SEDIMENTATION RATE (test code = 35 MM/HOUR 1017) SEDIMENTATION [id number] 00:00:00 Test Item Value Reference Range Interpretation Comments SEDIMENTATION RATE (test code = 35 MM/HOUR 1017) CBC W/AUTO [id number] 00:00:00 Test Item Value Reference Range Interpretation [...] code = 1015) 246 K/UL CBC W/AUTO [id number] 00:00:00 Test Item Value Reference Range Interpretation [...] code = 1015) 246 K/UL CBC W/AUTO [id number] 00:00:00 Test Item Value Reference Range Interpretation [...] (test code = 1015) 246 K/UL HEMOGLOBIN [id number] 00:00:00 Test Item Value Reference Range Interpretation Comments HEMOGLOBIN A1c (test code = 44186) 6.2 % HEMOGLOBIN [id number] 00:00:00 Test Item Value Reference Range Interpretation Comments HEMOGLOBIN A1c (test code = 83819) 6.2 % HEMOGLOBIN [id number] 00:00:00 Test Item Value Reference Range Interpretation Comments HEMOGLOBIN A1c (test code = 78379) 6.2 % COMPREHENSIVE METABOLIC [id number] 00:00:00 Test Item Value Reference Range Interpretation Comments GLUCOSE (test code = 2217) 100 MG/DL BUN (test code = 2208) 10 MG/DL CREATININE (test code = 2214) 0.61 MG/DL eGFR AMER. (test code 134 ML/MIN/1.73 = 34160) eGFR NON- AMER. (test 116 ML/MIN/1.73 code = 25901) CALCULATED BUN/CREAT (test 16 RATIO code = [...] code = 2219) 16 U/L COMPREHENSIVE METABOLIC [id number] 00:00:00 Test Item Value Reference Range Interpretation Comments GLUCOSE (test code = 2217) 100 MG/DL BUN (test code = 2208) 10 MG/DL CREATININE (test code = 2214) 0.61 MG/DL eGFR AMER. (test code 134 ML/MIN/1.73 = 86601) eGFR NON- AMER. (test 116 ML/MIN/1.73 code = 46728) CALCULATED BUN/CREAT (test 16 RATIO code = [...] (test code = 2219) 16 U/L LIPID [id number] 00:00:00 Test Item Value Reference Range Interpretation Comments CHOLESTEROL (test code = 2210) 166 MG/DL TRIGLYCERIDES (test code = 2232) 72 MG/DL HDL CHOLESTEROL (test code = 2220) 47 MG/DL CALCULATED LDL CHOL (test code = 105 MG/DL 2237) RISK RATIO LDL/HDL (test code = 2.23 RATIO 2238) LIPID [id number] 00:00:00 Test Item Value Reference Range Interpretation Comments CHOLESTEROL (test code = 2210) 166 MG/DL TRIGLYCERIDES (test code = 2232) 72 MG/DL HDL CHOLESTEROL (test code = 2220) 47 MG/DL CALCULATED LDL CHOL (test code = 105 MG/DL 2237) RISK RATIO LDL/HDL (test code = 2.23 RATIO 2238) [id number] 00:00:00 Test Item Value Reference Range Interpretation Comments TSH (test code = 2821) 1.2 UIU/ML [id number] 00:00:00 Test Item Value Reference Range Interpretation Comments TSH (test code = 2821) 1.2 UIU/ML [id number] 00:00:00 Test Item Value Reference Range Interpretation Comments TSH (test code = 2821) 1.2 UIU/ML COMPREHENSIVE METABOLIC [id number] 00:00:00 Test Item Value Reference Range Interpretation Comments GLUCOSE (test code = 2217) 100 MG/DL BUN (test code = 2208) 10 MG/DL CREATININE (test code = 2214) 0.61 MG/DL eGFR AMER. (test code 134 ML/MIN/1.73 = 45809) eGFR NON- AMER. (test 116 ML/MIN/1.73 code = 90295) CALCULATED BUN/CREAT (test 16 RATIO code = [...] code = 2219) 16 U/L COMPREHENSIVE METABOLIC [id number] 00:00:00 Test Item Value Reference Range Interpretation Comments GLUCOSE (test code = 2217) 100 MG/DL BUN (test code = 2208) 10 MG/DL CREATININE (test code = 2214) 0.61 MG/DL eGFR AMER. (test code 134 ML/MIN/1.73 = 09808) eGFR NON- AMER. (test 116 ML/MIN/1.73 code = 70877) CALCULATED BUN/CREAT (test 16 RATIO code = [...] (test code = 2219) 16 U/L LIPID [id number] 00:00:00 Test Item Value Reference Range Interpretation Comments CHOLESTEROL (test code = 2210) 166 MG/DL TRIGLYCERIDES (test code = 2232) 72 MG/DL HDL CHOLESTEROL (test code = 2220) 47 MG/DL CALCULATED LDL CHOL (test code = 105 MG/DL 2237) RISK RATIO LDL/HDL (test code = 2.23 RATIO 2238) LIPID [id number] 00:00:00 Test Item Value Reference Range Interpretation Comments CHOLESTEROL (test code = 2210) 166 MG/DL TRIGLYCERIDES (test code = 2232) 72 MG/DL HDL CHOLESTEROL (test code = 2220) 47 MG/DL CALCULATED LDL CHOL (test code = 105 MG/DL 2237) RISK RATIO LDL/HDL (test code = 2.23 RATIO 2238) [id number] 00:00:00 Test Item Value Reference Range Interpretation Comments TSH (test code = 2821) 1.2 UIU/ML [id number] 00:00:00 Test Item Value Reference Range Interpretation Comments TSH (test code = 2821) 1.2 UIU/ML [id number] 00:00:00 Test Item Value Reference Range Interpretation Comments TSH (test code = 2821) 1.2 UIU/ML COMPREHENSIVE METABOLIC [id number] 00:00:00 Test Item Value Reference Range Interpretation Comments GLUCOSE (test code = 2217) 100 MG/DL BUN (test code = 2208) 10 MG/DL CREATININE (test code = 2214) 0.61 MG/DL eGFR AMER. (test code 134 ML/MIN/1.73 = 74212) eGFR NON- AMER. (test 116 ML/MIN/1.73 code = 64192) CALCULATED BUN/CREAT (test 16 RATIO code = [...] code = 2219) 16 U/L COMPREHENSIVE METABOLIC [id number] 00:00:00 Test Item Value Reference Range Interpretation Comments GLUCOSE (test code = 2217) 100 MG/DL BUN (test code = 2208) 10 MG/DL CREATININE (test code = 2214) 0.61 MG/DL eGFR AMER. (test code 134 ML/MIN/1.73 = 28009) eGFR NON- AMER. (test 116 ML/MIN/1.73 code = 29350) CALCULATED BUN/CREAT (test 16 RATIO code = [...] (test code = 2219) 16 U/L LIPID [id number] 00:00:00 Test Item Value Reference Range Interpretation Comments CHOLESTEROL (test code = 2210) 166 MG/DL TRIGLYCERIDES (test code = 2232) 72 MG/DL HDL CHOLESTEROL (test code = 2220) 47 MG/DL CALCULATED LDL CHOL (test code = 105 MG/DL 2236) RISK RATIO LDL/HDL (test code = 2.23 RATIO 2238) LIPID [id number] 00:00:00 Test Item Value Reference Range Interpretation Comments CHOLESTEROL (test code = 2210) 166 MG/DL TRIGLYCERIDES (test code = 2232) 72 MG/DL HDL CHOLESTEROL (test code = 2220) 47 MG/DL CALCULATED LDL CHOL (test code = 105 MG/DL 2236) RISK RATIO LDL/HDL (test code = 2.23 RATIO 2238) [id number] 00:00:00 Test Item Value Reference Range Interpretation Comments TSH (test code = 2821) 1.2 UIU/ML [id number] 00:00:00 Test Item Value Reference Range Interpretation Comments TSH (test code = 2821) 1.2 UIU/ML [id number] 00:00:00 Test Item Value Reference Range Interpretation Comments TSH (test code = 2821) 1.2 UIU/ML COMPREHENSIVE METABOLIC [id number] 00:00:00 Test Item Value Reference Range Interpretation Comments GLUCOSE (test code = 2217) 100 MG/DL BUN (test code = 2208) 10 MG/DL CREATININE (test code = 2214) 0.61 MG/DL eGFR AMER. (test code 134 ML/MIN/1.73 = 82233) eGFR NON- AMER. (test 116 ML/MIN/1.73 code = 48856) CALCULATED BUN/CREAT (test 16 RATIO code = [...] code = 2219) 16 U/L COMPREHENSIVE METABOLIC [id number] 00:00:00 Test Item Value Reference Range Interpretation Comments GLUCOSE (test code = 2217) 100 MG/DL BUN (test code = 2208) 10 MG/DL CREATININE (test code = 2214) 0.61 MG/DL eGFR AMER. (test code 134 ML/MIN/1.73 = 10098) eGFR NON- AMER. (test 116 ML/MIN/1.73 code = 84573) CALCULATED BUN/CREAT (test 16 RATIO code = [...] (test code = 2219) 16 U/L LIPID [id number] 00:00:00 Test Item Value Reference Range Interpretation Comments CHOLESTEROL (test code = 2210) 166 MG/DL TRIGLYCERIDES (test code = 2232) 72 MG/DL HDL CHOLESTEROL (test code = 2220) 47 MG/DL CALCULATED LDL CHOL (test code = 105 MG/DL 2236) RISK RATIO LDL/HDL (test code = 2.23 RATIO 2238) LIPID [id number] 00:00:00 Test Item Value Reference Range Interpretation Comments CHOLESTEROL (test code = 2210) 166 MG/DL TRIGLYCERIDES (test code = 2232) 72 MG/DL HDL CHOLESTEROL (test code = 2220) 47 MG/DL CALCULATED LDL CHOL (test code = 105 MG/DL 7) RISK RATIO LDL/HDL (test code = 2.23 RATIO 2238) [id number] 00:00:00 Test Item Value Reference Range Interpretation Comments TSH (test code = 2821) 1.2 UIU/ML [id number] 00:00:00 Test Item Value Reference Range Interpretation Comments TSH (test code = 2821) 1.2 UIU/ML [id number] 00:00:00 Test Item Value Reference Range Interpretation Comments TSH (test code = 2821) 1.2 UIU/ML COMPREHENSIVE METABOLIC [id number] 00:00:00 Test Item Value Reference Range Interpretation Comments GLUCOSE (test code = 2217) 100 MG/DL BUN (test code = 2208) 10 MG/DL CREATININE (test code = 2214) 0.61 MG/DL eGFR AMER. (test code 134 ML/MIN/1.73 = 61226) eGFR NON- AMER. (test 116 ML/MIN/1.73 code = 68032) CALCULATED BUN/CREAT (test 16 RATIO code = [...] code = 2219) 16 U/L COMPREHENSIVE METABOLIC [id number] 00:00:00 Test Item Value Reference Range Interpretation Comments GLUCOSE (test code = 2217) 100 MG/DL BUN (test code = 2208) 10 MG/DL CREATININE (test code = 2214) 0.61 MG/DL eGFR AMER. (test code 134 ML/MIN/1.73 = 94195) eGFR NON- AMER. (test 116 ML/MIN/1.73 code = 72389) CALCULATED BUN/CREAT (test 16 RATIO code = [...] (test code = 2219) 16 U/L LIPID [id number] 00:00:00 Test Item Value Reference Range Interpretation Comments CHOLESTEROL (test code = 2210) 166 MG/DL TRIGLYCERIDES (test code = 2232) 72 MG/DL HDL CHOLESTEROL (test code = 2220) 47 MG/DL CALCULATED LDL CHOL (test code = 105 MG/DL 2236) RISK RATIO LDL/HDL (test code = 2.23 RATIO 2238) LIPID [id number] 00:00:00 Test Item Value Reference Range Interpretation Comments CHOLESTEROL (test code = 2210) 166 MG/DL TRIGLYCERIDES (test code = 2232) 72 MG/DL HDL CHOLESTEROL (test code = 2220) 47 MG/DL CALCULATED LDL CHOL (test code = 105 MG/DL 7) RISK RATIO LDL/HDL (test code = 2.23 RATIO 2238) [id number] 00:00:00 Test Item Value Reference Range Interpretation Comments TSH (test code = 2821) 1.2 UIU/ML [id number] 00:00:00 Test Item Value Reference Range Interpretation Comments TSH (test code = 2821) 1.2 UIU/ML [id number] 00:00:00 Test Item Value Reference Range Interpretation Comments TSH (test code = 2821) 1.2 UIU/ML COMPREHENSIVE METABOLIC [id number] 00:00:00 Test Item Value Reference Range Interpretation Comments GLUCOSE (test code = 2217) 100 MG/DL BUN (test code = 2208) 10 MG/DL CREATININE (test code = 2214) 0.61 MG/DL eGFR AMER. (test code 134 ML/MIN/1.73 = 66800) eGFR NON- AMER. (test 116 ML/MIN/1.73 code = 67923) CALCULATED BUN/CREAT (test 16 RATIO code = [...] code = 2219) 16 U/L COMPREHENSIVE METABOLIC [id number] 00:00:00 Test Item Value Reference Range Interpretation Comments GLUCOSE (test code = 2217) 100 MG/DL BUN (test code = 2208) 10 MG/DL CREATININE (test code = 2214) 0.61 MG/DL eGFR AMER. (test code 134 ML/MIN/1.73 = 34852) eGFR NON- AMER. (test 116 ML/MIN/1.73 code = 89172) CALCULATED BUN/CREAT (test 16 RATIO code = [...] (test code = 2219) 16 U/L LIPID [id number] 00:00:00 Test Item Value Reference Range Interpretation Comments CHOLESTEROL (test code = 2210) 166 MG/DL TRIGLYCERIDES (test code = 2232) 72 MG/DL HDL CHOLESTEROL (test code = 2220) 47 MG/DL CALCULATED LDL CHOL (test code = 105 MG/DL 2237) RISK RATIO LDL/HDL (test code = 2.23 RATIO 2238) LIPID [id number] 00:00:00 Test Item Value Reference Range Interpretation Comments CHOLESTEROL (test code = 2210) 166 MG/DL TRIGLYCERIDES (test code = 2232) 72 MG/DL HDL CHOLESTEROL (test code = 2220) 47 MG/DL CALCULATED LDL CHOL (test code = 105 MG/DL 2237) RISK RATIO LDL/HDL (test code = 2.23 RATIO 2238) [id number] 00:00:00 Test Item Value Reference Range Interpretation Comments TSH (test code = 2821) 1.2 UIU/ML [id number] 00:00:00 Test Item Value Reference Range Interpretation Comments TSH (test code = 2821) 1.2 UIU/ML [id number] 00:00:00 Test Item Value Reference Range Interpretation Comments TSH (test code = 2821) 1.2 UIU/ML COMPREHENSIVE METABOLIC [id number] 00:00:00 Test Item Value Reference Range Interpretation Comments GLUCOSE (test code = 2217) 100 MG/DL BUN (test code = 2208) 10 MG/DL CREATININE (test code = 2214) 0.61 MG/DL eGFR AMER. (test code 134 ML/MIN/1.73 = 76552) eGFR NON- AMER. (test 116 ML/MIN/1.73 code = 38229) CALCULATED BUN/CREAT (test 16 RATIO code = [...] code = 2219) 16 U/L COMPREHENSIVE METABOLIC [id number] 00:00:00 Test Item Value Reference Range Interpretation Comments GLUCOSE (test code = 2217) 100 MG/DL BUN (test code = 2208) 10 MG/DL CREATININE (test code = 2214) 0.61 MG/DL eGFR AMER. (test code 134 ML/MIN/1.73 = 17291) eGFR NON- AMER. (test 116 ML/MIN/1.73 code = 86598) CALCULATED BUN/CREAT (test 16 RATIO code = [...] code = 2219) 16 U/L COMPREHENSIVE METABOLIC [id number] 00:00:00 Test Item Value Reference Range Interpretation Comments GLUCOSE (test code = 2217) 100 MG/DL BUN (test code = 2208) 10 MG/DL CREATININE (test code = 2214) 0.61 MG/DL eGFR AMER. (test code 134 ML/MIN/1.73 = 24832) eGFR NON- AMER. (test 116 ML/MIN/1.73 code = 44549) CALCULATED BUN/CREAT (test 16 RATIO code = [...] (test code = 2219) 16 U/L LIPID [id number] 00:00:00 Test Item Value Reference Range Interpretation Comments CHOLESTEROL (test code = 2210) 166 MG/DL TRIGLYCERIDES (test code = 2232) 72 MG/DL HDL CHOLESTEROL (test code = 2220) 47 MG/DL CALCULATED LDL CHOL (test code = 105 MG/DL 2236) RISK RATIO LDL/HDL (test code = 2.23 RATIO 2238) LIPID [id number] 00:00:00 Test Item Value Reference Range Interpretation Comments CHOLESTEROL (test code = 2210) 166 MG/DL TRIGLYCERIDES (test code = 2232) 72 MG/DL HDL CHOLESTEROL (test code = 2220) 47 MG/DL CALCULATED LDL CHOL (test code = 105 MG/DL 2237) RISK RATIO LDL/HDL (test code = 2.23 RATIO 2238) [id number] 00:00:00 Test Item Value Reference Range Interpretation Comments TSH (test code = 2821) 1.2 UIU/ML [id number] 00:00:00 Test Item Value Reference Range Interpretation Comments TSH (test code = 2821) 1.2 UIU/ML [id number] 00:00:00 Test Item Value Reference Range Interpretation Comments TSH (test code = 2821) 1.2 UIU/ML LIPID [id number] 00:00:00 Test Item Value Reference Range Interpretation Comments CHOLESTEROL (test code = 2210) 166 MG/DL TRIGLYCERIDES (test code = 2232) 72 MG/DL HDL CHOLESTEROL (test code = 2220) 47 MG/DL CALCULATED LDL CHOL (test code = 105 MG/DL 2236) RISK RATIO LDL/HDL (test code = 2.23 RATIO 2238) COMPREHENSIVE METABOLIC [id number] 00:00:00 Test Item Value Reference Range Interpretation Comments GLUCOSE (test code = 2217) 100 MG/DL BUN (test code = 2208) 10 MG/DL CREATININE (test code = 2214) 0.61 MG/DL eGFR AMER. (test code 134 ML/MIN/1.73 = 31610) eGFR NON- AMER. (test 116 ML/MIN/1.73 code = 44172) CALCULATED BUN/CREAT (test 16 RATIO code = [...] code = 2219) 16 U/L COMPREHENSIVE METABOLIC [id number] 00:00:00 Test Item Value Reference Range Interpretation Comments GLUCOSE (test code = 2217) 100 MG/DL BUN (test code = 2208) 10 MG/DL CREATININE (test code = 2214) 0.61 MG/DL eGFR AMER. (test code 134 ML/MIN/1.73 = 24715) eGFR NON- AMER. (test 116 ML/MIN/1.73 code = 57857) CALCULATED BUN/CREAT (test 16 RATIO code = [...] (test code = 2219) 16 U/L LIPID [id number] 00:00:00 Test Item Value Reference Range Interpretation Comments CHOLESTEROL (test code = 2210) 166 MG/DL TRIGLYCERIDES (test code = 2232) 72 MG/DL HDL CHOLESTEROL (test code = 2220) 47 MG/DL CALCULATED LDL CHOL (test code = 105 MG/DL 7) RISK RATIO LDL/HDL (test code = 2.23 RATIO 2238) LIPID [id number] 00:00:00 Test Item Value Reference Range Interpretation Comments CHOLESTEROL (test code = 2210) 166 MG/DL TRIGLYCERIDES (test code = 2232) 72 MG/DL HDL CHOLESTEROL (test code = 2220) 47 MG/DL CALCULATED LDL CHOL (test code = 105 MG/DL 7) RISK RATIO LDL/HDL (test code = 2.23 RATIO 2238) [id number] 00:00:00 Test Item Value Reference Range Interpretation Comments TSH (test code = 2821) 1.2 UIU/ML [id number] 00:00:00 Test Item Value Reference Range Interpretation Comments TSH (test code = 2821) 1.2 UIU/ML [id number] 00:00:00 Test Item Value Reference Range Interpretation Comments TSH (test code = 2821) 1.2 UIU/ML [id number] 00:00:00 Test Item Value Reference Range Interpretation Comments TSH (test code = 2821) 1.2 UIU/ML [id number] 00:00:00 Test Item Value Reference Range Interpretation Comments TSH (test code = 2821) 1.2 UIU/ML COMPREHENSIVE METABOLIC [id number] 00:00:00 Test Item Value Reference Range Interpretation Comments GLUCOSE (test code = 2217) 100 MG/DL BUN (test code = 2208) 10 MG/DL CREATININE (test code = 2214) 0.61 MG/DL eGFR AMER. (test code 134 ML/MIN/1.73 = 04474) eGFR NON- AMER. (test 116 ML/MIN/1.73 code = 74903) CALCULATED BUN/CREAT (test 16 RATIO code = [...] code = 2219) 16 U/L COMPREHENSIVE METABOLIC [id number] 00:00:00 Test Item Value Reference Range Interpretation Comments GLUCOSE (test code = 2217) 100 MG/DL BUN (test code = 2208) 10 MG/DL CREATININE (test code = 2214) 0.61 MG/DL eGFR AMER. (test code 134 ML/MIN/1.73 = 71493) eGFR NON- AMER. (test 116 ML/MIN/1.73 code = 94099) CALCULATED BUN/CREAT (test 16 RATIO code = [...] (test code = 2219) 16 U/L LIPID [id number] 00:00:00 Test Item Value Reference Range Interpretation Comments CHOLESTEROL (test code = 2210) 166 MG/DL TRIGLYCERIDES (test code = 2232) 72 MG/DL HDL CHOLESTEROL (test code = 2220) 47 MG/DL CALCULATED LDL CHOL (test code = 105 MG/DL 2237) RISK RATIO LDL/HDL (test code = 2.23 RATIO 2238) LIPID [id number] 00:00:00 Test Item Value Reference Range Interpretation Comments CHOLESTEROL (test code = 2210) 166 MG/DL TRIGLYCERIDES (test code = 2232) 72 MG/DL HDL CHOLESTEROL (test code = 2220) 47 MG/DL CALCULATED LDL CHOL (test code = 105 MG/DL 2237) RISK RATIO LDL/HDL (test code = 2.23 RATIO 2238) [id number] 00:00:00 Test Item Value Reference Range Interpretation Comments TSH (test code = 2821) 1.2 UIU/ML [id number] 00:00:00 Test Item Value Reference Range Interpretation Comments TSH (test code = 2821) 1.2 UIU/ML [id number] 00:00:00 Test Item Value Reference Range Interpretation Comments TSH (test code = 2821) 1.2 UIU/ML COMPREHENSIVE METABOLIC [id number] 00:00:00 Test Item Value Reference Range Interpretation Comments GLUCOSE (test code = 2217) 100 MG/DL BUN (test code = 2208) 10 MG/DL CREATININE (test code = 2214) 0.61 MG/DL eGFR AMER. (test code 134 ML/MIN/1.73 = 37912) eGFR NON- AMER. (test 116 ML/MIN/1.73 code = 74344) CALCULATED BUN/CREAT (test 16 RATIO code = [...] code = 2219) 16 U/L COMPREHENSIVE METABOLIC [id number] 00:00:00 Test Item Value Reference Range Interpretation Comments GLUCOSE (test code = 2217) 100 MG/DL BUN (test code = 2208) 10 MG/DL CREATININE (test code = 2214) 0.61 MG/DL eGFR AMER. (test code 134 ML/MIN/1.73 = 72038) eGFR NON- AMER. (test 116 ML/MIN/1.73 code = 74763) CALCULATED BUN/CREAT (test 16 RATIO code = [...] (test code = 2219) 16 U/L LIPID [id number] 00:00:00 Test Item Value Reference Range Interpretation Comments CHOLESTEROL (test code = 2210) 166 MG/DL TRIGLYCERIDES (test code = 2232) 72 MG/DL HDL CHOLESTEROL (test code = 2220) 47 MG/DL CALCULATED LDL CHOL (test code = 105 MG/DL 2237) RISK RATIO LDL/HDL (test code = 2.23 RATIO 2238) LIPID [id number] 00:00:00 Test Item Value Reference Range Interpretation Comments CHOLESTEROL (test code = 2210) 166 MG/DL TRIGLYCERIDES (test code = 2232) 72 MG/DL HDL CHOLESTEROL (test code = 2220) 47 MG/DL CALCULATED LDL CHOL (test code = 105 MG/DL 2237) RISK RATIO LDL/HDL (test code = 2.23 RATIO 2238) [id number] 00:00:00 Test Item Value Reference Range Interpretation Comments TSH (test code = 2821) 1.2 UIU/ML [id number] 00:00:00 Test Item Value Reference Range Interpretation Comments TSH (test code = 2821) 1.2 UIU/ML [id number] 00:00:00 Test Item Value Reference Range Interpretation Comments TSH (test code = 2821) 1.2 UIU/ML CBC W/AUTO [id number] 00:00:00 Test Item Value Reference Range Interpretation [...] code = 1015) 243 K/UL CBC W/AUTO [id number] 00:00:00 Test Item Value Reference Range Interpretation [...] code = 1015) 243 K/UL CBC W/AUTO [id number] 00:00:00 Test Item Value Reference Range Interpretation [...] (test code = 1015) 243 K/UL HEMOGLOBIN [id number] 00:00:00 Test Item Value Reference Range Interpretation Comments HEMOGLOBIN A1c (test code = 71787) 6.4 % HEMOGLOBIN [id number] 00:00:00 Test Item Value Reference Range Interpretation Comments HEMOGLOBIN A1c (test code = 48730) 6.4 % HEMOGLOBIN [id number] 00:00:00 Test Item Value Reference Range Interpretation Comments HEMOGLOBIN A1c (test code = 16347) 6.4 % CBC W/AUTO [id number] 00:00:00 Test Item Value Reference Range Interpretation [...] code = 1015) 243 K/UL CBC W/AUTO [id number] 00:00:00 Test Item Value Reference Range Interpretation [...] code = 1015) 243 K/UL CBC W/AUTO [id number] 00:00:00 Test Item Value Reference Range Interpretation [...] (test code = 1015) 243 K/UL HEMOGLOBIN [id number] 00:00:00 Test Item Value Reference Range Interpretation Comments HEMOGLOBIN A1c (test code = 92962) 6.4 % HEMOGLOBIN [id number] 00:00:00 Test Item Value Reference Range Interpretation Comments HEMOGLOBIN A1c (test code = 03159) 6.4 % HEMOGLOBIN [id number] 00:00:00 Test Item Value Reference Range Interpretation Comments HEMOGLOBIN A1c (test code = 89272) 6.4 % CBC W/AUTO [id number] 00:00:00 Test Item Value Reference Range Interpretation [...] code = 1015) 243 K/UL CBC W/AUTO [id number] 00:00:00 Test Item Value Reference Range Interpretation [...] code = 1015) 243 K/UL CBC W/AUTO [id number] 00:00:00 Test Item Value Reference Range Interpretation [...] (test code = 1015) 243 K/UL HEMOGLOBIN [id number] 00:00:00 Test Item Value Reference Range Interpretation Comments HEMOGLOBIN A1c (test code = 24442) 6.4 % HEMOGLOBIN [id number] 00:00:00 Test Item Value Reference Range Interpretation Comments HEMOGLOBIN A1c (test code = 84738) 6.4 % HEMOGLOBIN [id number] 00:00:00 Test Item Value Reference Range Interpretation Comments HEMOGLOBIN A1c (test code = 24735) 6.4 % CBC W/AUTO [id number] 00:00:00 Test Item Value Reference Range Interpretation [...] code = 1015) 243 K/UL CBC W/AUTO [id number] 00:00:00 Test Item Value Reference Range Interpretation [...] code = 1015) 243 K/UL CBC W/AUTO [id number] 00:00:00 Test Item Value Reference Range Interpretation [...] (test code = 1015) 243 K/UL HEMOGLOBIN [id number] 00:00:00 Test Item Value Reference Range Interpretation Comments HEMOGLOBIN A1c (test code = 67588) 6.4 % HEMOGLOBIN [id number] 00:00:00 Test Item Value Reference Range Interpretation Comments HEMOGLOBIN A1c (test code = 86646) 6.4 % HEMOGLOBIN [id number] 00:00:00 Test Item Value Reference Range Interpretation Comments HEMOGLOBIN A1c (test code = 47375) 6.4 % CBC W/AUTO [id number] 00:00:00 Test Item Value Reference Range Interpretation [...] code = 1015) 243 K/UL CBC W/AUTO [id number] 00:00:00 Test Item Value Reference Range Interpretation [...] code = 1015) 243 K/UL CBC W/AUTO [id number] 00:00:00 Test Item Value Reference Range Interpretation [...] (test code = 1015) 243 K/UL HEMOGLOBIN [id number] 00:00:00 Test Item Value Reference Range Interpretation Comments HEMOGLOBIN A1c (test code = 32104) 6.4 % HEMOGLOBIN [id number] 00:00:00 Test Item Value Reference Range Interpretation Comments HEMOGLOBIN A1c (test code = 78210) 6.4 % HEMOGLOBIN [id number] 00:00:00 Test Item Value Reference Range Interpretation Comments HEMOGLOBIN A1c (test code = 02665) 6.4 % CBC W/AUTO [id number] 00:00:00 Test Item Value Reference Range Interpretation [...] code = 1015) 243 K/UL CBC W/AUTO [id number] 00:00:00 Test Item Value Reference Range Interpretation [...] code = 1015) 243 K/UL CBC W/AUTO [id number] 00:00:00 Test Item Value Reference Range Interpretation [...] (test code = 1015) 243 K/UL HEMOGLOBIN [id number] 00:00:00 Test Item Value Reference Range Interpretation Comments HEMOGLOBIN A1c (test code = 95948) 6.4 % HEMOGLOBIN [id number] 00:00:00 Test Item Value Reference Range Interpretation Comments HEMOGLOBIN A1c (test code = 68314) 6.4 % HEMOGLOBIN [id number] 00:00:00 Test Item Value Reference Range Interpretation Comments HEMOGLOBIN A1c (test code = 76204) 6.4 % CBC W/AUTO [id number] 00:00:00 Test Item Value Reference Range Interpretation [...] code = 1015) 243 K/UL CBC W/AUTO [id number] 00:00:00 Test Item Value Reference Range Interpretation [...] code = 1015) 243 K/UL CBC W/AUTO [id number] 00:00:00 Test Item Value Reference Range Interpretation [...] (test code = 1015) 243 K/UL HEMOGLOBIN [id number] 00:00:00 Test Item Value Reference Range Interpretation Comments HEMOGLOBIN A1c (test code = 92009) 6.4 % HEMOGLOBIN [id number] 00:00:00 Test Item Value Reference Range Interpretation Comments HEMOGLOBIN A1c (test code = 55878) 6.4 % HEMOGLOBIN [id number] 00:00:00 Test Item Value Reference Range Interpretation Comments HEMOGLOBIN A1c (test code = 64094) 6.4 % CBC W/AUTO [id number] 00:00:00 Test Item Value Reference Range Interpretation [...] code = 1015) 243 K/UL CBC W/AUTO [id number] 00:00:00 Test Item Value Reference Range Interpretation [...] (test code = 1015) 243 K/UL HEMOGLOBIN [id number] 00:00:00 Test Item Value Reference Range Interpretation Comments HEMOGLOBIN A1c (test code = 00309) 6.4 % HEMOGLOBIN [id number] 00:00:00 Test Item Value Reference Range Interpretation Comments HEMOGLOBIN A1c (test code = 20507) 6.4 % CBC W/AUTO [id number] 00:00:00 Test Item Value Reference Range Interpretation [...] code = 1015) 243 K/UL CBC W/AUTO [id number] 00:00:00 Test Item Value Reference Range Interpretation [...] code = 1015) 243 K/UL CBC W/AUTO [id number] 00:00:00 Test Item Value Reference Range Interpretation [...] (test code = 1015) 243 K/UL HEMOGLOBIN [id number] 00:00:00 Test Item Value Reference Range Interpretation Comments HEMOGLOBIN A1c (test code = 29854) 6.4 % HEMOGLOBIN [id number] 00:00:00 Test Item Value Reference Range Interpretation Comments HEMOGLOBIN A1c (test code = 87288) 6.4 % HEMOGLOBIN [id number] 00:00:00 Test Item Value Reference Range Interpretation Comments HEMOGLOBIN A1c (test code = 66240) 6.4 % CBC W/AUTO [id number] 00:00:00 Test Item Value Reference Range Interpretation [...] code = 1015) 243 K/UL CBC W/AUTO [id number] 00:00:00 Test Item Value Reference Range Interpretation [...] code = 1015) 243 K/UL CBC W/AUTO [id number] 00:00:00 Test Item Value Reference Range Interpretation [...] (test code = 1015) 243 K/UL HEMOGLOBIN [id number] 00:00:00 Test Item Value Reference Range Interpretation Comments HEMOGLOBIN A1c (test code = 33522) 6.4 % HEMOGLOBIN [id number] 00:00:00 Test Item Value Reference Range Interpretation Comments HEMOGLOBIN A1c (test code = 58094) 6.4 % HEMOGLOBIN [id number] 00:00:00 Test Item Value Reference Range Interpretation Comments HEMOGLOBIN A1c (test code = 71312) 6.4 % CBC W/AUTO [id number] 00:00:00 Test Item Value Reference Range Interpretation [...] code = 1015) 243 K/UL CBC W/AUTO [id number] 00:00:00 Test Item Value Reference Range Interpretation [...] code = 1015) 243 K/UL CBC W/AUTO [id number] 00:00:00 Test Item Value Reference Range Interpretation [...] (test code = 1015) 243 K/UL HEMOGLOBIN [id number] 00:00:00 Test Item Value Reference Range Interpretation Comments HEMOGLOBIN A1c (test code = 21291) 6.4 % HEMOGLOBIN [id number] 00:00:00 Test Item Value Reference Range Interpretation Comments HEMOGLOBIN A1c (test code = 85053) 6.4 % HEMOGLOBIN [id number] 00:00:00 Test Item Value Reference Range Interpretation Comments HEMOGLOBIN A1c (test code = 57487) 6.4 % CHLAMYDIA, AMPLIFIED, [id number] 00:00:00 Test Item Value Reference Range Interpretation Comments CHLAMYDIA, AMPLIFIED (test code = NEGATIVE 46577) CHLAMYDIA, AMPLIFIED, [id number] 00:00:00 Test Item Value Reference Range Interpretation Comments CHLAMYDIA, AMPLIFIED (test code = NEGATIVE 00038) GC, AMPLIFIED, [id number] 00:00:00 Test Item Value Reference Range Interpretation Comments GONORRHEA, AMPLIFIED (test code = NEGATIVE 92151) GC, AMPLIFIED, [id number] 00:00:00 Test Item Value Reference Range Interpretation Comments GONORRHEA, AMPLIFIED (test code = NEGATIVE 44651) HIV AB/AG COMBO RFLX [id number] 00:00:00 Test Item Value Reference Range Interpretation Comments HIV AB/AG COMBO RFLX CONF (test NON-REACTIVE code = 3514) HIV AB/AG COMBO RFLX [id number] 00:00:00 Test Item Value Reference Range Interpretation Comments HIV AB/AG COMBO RFLX CONF (test NON-REACTIVE code = 3514) [id number] 00:00:00 Test Item Value Reference Range Interpretation Comments RPR RESULT (test code = NON-REACTIVE 3501) RPR TITER (test code = 3500) NOT INDIC. TITER [id number] 00:00:00 Test Item Value Reference Range Interpretation Comments RPR RESULT (test code = NON-REACTIVE 3501) RPR TITER (test code = 3500) NOT INDIC. TITER [id number] 00:00:00 Test Item Value Reference Range Interpretation Comments RPR RESULT (test code = NON-REACTIVE 3501) RPR TITER (test code = 3500) NOT INDIC. TITER HEPATITIS PROFILE (A,B,C)2015-06-24 00:00:00 Test Item Value Reference Range Interpretation Comments HEPATITIS A TOTAL AB (test code REACTIVE = 2725) HEPATITIS B SURF AG (test code = NON-REACTIVE 2739) HEP B CORE TOTAL AB (test code = NON-REACTIVE 272) HEPATITIS B SURFACE AB (test NON-REACTIVE code = 2737) HEPATITIS C ANTIBODY (test code NON-REACTIVE = 4675) INTERPRETATION HEPATITIS A: (NOTE) (test code = 2552) INTERPRETATION HEPATITIS B: (NOTE) (test code = 04413) INTERPRETATION HEPATITIS C: (NOTE) (test code = 39192) HEPATITIS PROFILE (A,B,C)2015-06-24 00:00:00 Test Item Value [...] INTERPRETATION HEPATITIS B: (NOTE) (test code = 56317) INTERPRETATION HEPATITIS C: (NOTE) (test code = 98904) COMPREHENSIVE METABOLIC [id number] 00:00:00 Test Item Value Reference Range Interpretation Comments GLUCOSE (test code = 2217) 105 MG/DL BUN (test code = 2208) 11 MG/DL CREATININE (test code = 2214) 0.80 MG/DL eGFR AMER. (test code 109 ML/MIN/1.73 = 10989) eGFR NON- AMER. (test 94 ML/MIN/1.73 code = 62563) CALCULATED BUN/CREAT (test 14 RATIO code = [...] code = 2219) 14 U/L COMPREHENSIVE METABOLIC [id number] 00:00:00 Test Item Value Reference Range Interpretation Comments GLUCOSE (test code = 2217) 105 MG/DL BUN (test code = 2208) 11 MG/DL CREATININE (test code = 2214) 0.80 MG/DL eGFR AMER. (test code 109 ML/MIN/1.73 = 45892) eGFR NON- AMER. (test 94 ML/MIN/1.73 code = 42790) CALCULATED BUN/CREAT (test 14 RATIO code = [...] (test code = 2219) 14 U/L LIPID [id number] 00:00:00 Test Item Value Reference Range Interpretation Comments CHOLESTEROL (test code = 2210) 211 MG/DL TRIGLYCERIDES (test code = 2232) 209 MG/DL HDL CHOLESTEROL (test code = 2220) 38 MG/DL CALCULATED LDL CHOL (test code = 131 MG/DL 2237) RISK RATIO LDL/HDL (test code = 3.45 RATIO 2238) LIPID [id number] 00:00:00 Test Item Value Reference Range Interpretation Comments CHOLESTEROL (test code = 2210) 211 MG/DL TRIGLYCERIDES (test code = 2232) 209 MG/DL HDL CHOLESTEROL (test code = 2220) 38 MG/DL CALCULATED LDL CHOL (test code = 131 MG/DL 2237) RISK RATIO LDL/HDL (test code = 3.45 RATIO 2238) CBC W/AUTO [id number] 00:00:00 Test Item Value Reference Range Interpretation [...] code = 1015) 254 K/UL CBC W/AUTO [id number] 00:00:00 Test Item Value Reference Range Interpretation [...] code = 1015) 254 K/UL CBC W/AUTO [id number] 00:00:00 Test Item Value Reference Range Interpretation [...] (test code = 1015) 254 K/UL HEMOGLOBIN [id number] 00:00:00 Test Item Value Reference Range Interpretation Comments HEMOGLOBIN A1c (test code = 76326) 6.9 % HEMOGLOBIN [id number] 00:00:00 Test Item Value Reference Range Interpretation Comments HEMOGLOBIN A1c (test code = 49522) 6.9 % HEMOGLOBIN [id number] 00:00:00 Test Item Value Reference Range Interpretation Comments HEMOGLOBIN A1c (test code = 15200) 6.9 % [id number] 00:00:00 Test Item Value Reference Range Interpretation Comments TSH (test code = 2821) 0.5 UIU/ML [id number] 00:00:00 Test Item Value Reference Range Interpretation Comments TSH (test code = 2821) 0.5 UIU/ML [id number] 00:00:00 Test Item Value Reference Range Interpretation Comments TSH (test code = 2821) 0.5 UIU/ML HEPATITIS A IgM [REFLEX]2015-06-24 00:00:00 Test Item Value Reference Range Interpretation Comments HEPATITIS A IgM (test code = NON-REACTIVE 2728) CHLAMYDIA, AMPLIFIED, [id number] 00:00:00 Test Item Value Reference Range Interpretation Comments CHLAMYDIA, AMPLIFIED (test code = NEGATIVE 62427) CHLAMYDIA, AMPLIFIED, [id number] 00:00:00 Test Item Value Reference Range Interpretation Comments CHLAMYDIA, AMPLIFIED (test code = NEGATIVE 08053) GC, AMPLIFIED, [id number] 00:00:00 Test Item Value Reference Range Interpretation Comments GONORRHEA, AMPLIFIED (test code = NEGATIVE 19002) GC, AMPLIFIED, [id number] 00:00:00 Test Item Value Reference Range Interpretation Comments GONORRHEA, AMPLIFIED (test code = NEGATIVE 45569) HIV AB/AG COMBO RFLX [id number] 00:00:00 Test Item Value Reference Range Interpretation Comments HIV AB/AG COMBO RFLX CONF (test NON-REACTIVE code = 3514) HIV AB/AG COMBO RFLX [id number] 00:00:00 Test Item Value Reference Range Interpretation Comments HIV AB/AG COMBO RFLX CONF (test NON-REACTIVE code = 3514) [id number] 00:00:00 Test Item Value Reference Range Interpretation Comments RPR RESULT (test code = NON-REACTIVE 3501) RPR TITER (test code = 3500) NOT INDIC. TITER [id number] 00:00:00 Test Item Value Reference Range Interpretation Comments RPR RESULT (test code = NON-REACTIVE 3501) RPR TITER (test code = 3500) NOT INDIC. TITER [id number] 00:00:00 Test Item Value Reference Range Interpretation [...] INTERPRETATION HEPATITIS B: (NOTE) (test code = 74596) INTERPRETATION HEPATITIS C: (NOTE) (test code = 74117) HEPATITIS PROFILE (A,B,C)2015-06-24 00:00:00 Test Item Value [...] INTERPRETATION HEPATITIS B: (NOTE) (test code = 82635) INTERPRETATION HEPATITIS C: (NOTE) (test code = 83915) COMPREHENSIVE METABOLIC [id number] 00:00:00 Test Item Value Reference Range Interpretation Comments GLUCOSE (test code = 2217) 105 MG/DL BUN (test code = 2208) 11 MG/DL CREATININE (test code = 2214) 0.80 MG/DL eGFR AMER. (test code 109 ML/MIN/1.73 = 64262) eGFR NON- AMER. (test 94 ML/MIN/1.73 code = 95967) CALCULATED BUN/CREAT (test 14 RATIO code = [...] code = 2219) 14 U/L COMPREHENSIVE METABOLIC [id number] 00:00:00 Test Item Value Reference Range Interpretation Comments GLUCOSE (test code = 2217) 105 MG/DL BUN (test code = 2208) 11 MG/DL CREATININE (test code = 2214) 0.80 MG/DL eGFR AMER. (test code 109 ML/MIN/1.73 = 09407) eGFR NON- AMER. (test 94 ML/MIN/1.73 code = 61392) CALCULATED BUN/CREAT (test 14 RATIO code = [...] (test code = 2219) 14 U/L LIPID [id number] 00:00:00 Test Item Value Reference Range Interpretation Comments CHOLESTEROL (test code = 2210) 211 MG/DL TRIGLYCERIDES (test code = 2232) 209 MG/DL HDL CHOLESTEROL (test code = 2220) 38 MG/DL CALCULATED LDL CHOL (test code = 131 MG/DL 2236) RISK RATIO LDL/HDL (test code = 3.45 RATIO 2238) LIPID [id number] 00:00:00 Test Item Value Reference Range Interpretation Comments CHOLESTEROL (test code = 2210) 211 MG/DL TRIGLYCERIDES (test code = 2232) 209 MG/DL HDL CHOLESTEROL (test code = 2220) 38 MG/DL CALCULATED LDL CHOL (test code = 131 MG/DL 7) RISK RATIO LDL/HDL (test code = 3.45 RATIO 2238) CBC W/AUTO [id number] 00:00:00 Test Item Value Reference Range Interpretation [...] code = 1015) 254 K/UL CBC W/AUTO [id number] 00:00:00 Test Item Value Reference Range Interpretation [...] code = 1015) 254 K/UL CBC W/AUTO [id number] 00:00:00 Test Item Value Reference Range Interpretation [...] (test code = 1015) 254 K/UL HEMOGLOBIN [id number] 00:00:00 Test Item Value Reference Range Interpretation Comments HEMOGLOBIN A1c (test code = 87186) 6.9 % HEMOGLOBIN [id number] 00:00:00 Test Item Value Reference Range Interpretation Comments HEMOGLOBIN A1c (test code = 02011) 6.9 % HEMOGLOBIN [id number] 00:00:00 Test Item Value Reference Range Interpretation Comments HEMOGLOBIN A1c (test code = 08970) 6.9 % [id number] 00:00:00 Test Item Value Reference Range Interpretation Comments TSH (test code = 2821) 0.5 UIU/ML [id number] 00:00:00 Test Item Value Reference Range Interpretation Comments TSH (test code = 2821) 0.5 UIU/ML [id number] 00:00:00 Test Item Value Reference Range Interpretation Comments TSH (test code = 2821) 0.5 UIU/ML HEPATITIS A IgM [REFLEX]2015-06-24 00:00:00 Test Item Value Reference Range Interpretation Comments HEPATITIS A IgM (test code = NON-REACTIVE 2728) CHLAMYDIA, AMPLIFIED, [id number] 00:00:00 Test Item Value Reference Range Interpretation Comments CHLAMYDIA, AMPLIFIED (test code = NEGATIVE 39907) CHLAMYDIA, AMPLIFIED, [id number] 00:00:00 Test Item Value Reference Range Interpretation Comments CHLAMYDIA, AMPLIFIED (test code = NEGATIVE 41108) GC, AMPLIFIED, [id number] 00:00:00 Test Item Value Reference Range Interpretation Comments GONORRHEA, AMPLIFIED (test code = NEGATIVE 63267) GC, AMPLIFIED, [id number] 00:00:00 Test Item Value Reference Range Interpretation Comments GONORRHEA, AMPLIFIED (test code = NEGATIVE 95819) HIV AB/AG COMBO RFLX [id number] 00:00:00 Test Item Value Reference Range Interpretation Comments HIV AB/AG COMBO RFLX CONF (test NON-REACTIVE code = 3514) HIV AB/AG COMBO RFLX [id number] 00:00:00 Test Item Value Reference Range Interpretation Comments HIV AB/AG COMBO RFLX CONF (test NON-REACTIVE code = 3514) [id number] 00:00:00 Test Item Value Reference Range Interpretation Comments RPR RESULT (test code = NON-REACTIVE 3501) RPR TITER (test code = 3500) NOT INDIC. TITER [id number] 00:00:00 Test Item Value Reference Range Interpretation Comments RPR RESULT (test code = NON-REACTIVE 3501) RPR TITER (test code = 3500) NOT INDIC. TITER [id number] 00:00:00 Test Item Value Reference Range Interpretation [...] INTERPRETATION HEPATITIS B: (NOTE) (test code = 56448) INTERPRETATION HEPATITIS C: (NOTE) (test code = 33537) HEPATITIS PROFILE (A,B,C)2015-06-24 00:00:00 Test Item Value [...] INTERPRETATION HEPATITIS B: (NOTE) (test code = 19231) INTERPRETATION HEPATITIS C: (NOTE) (test code = 95854) COMPREHENSIVE METABOLIC [id number] 00:00:00 Test Item Value Reference Range Interpretation Comments GLUCOSE (test code = 2217) 105 MG/DL BUN (test code = 2208) 11 MG/DL CREATININE (test code = 2214) 0.80 MG/DL eGFR AMER. (test code 109 ML/MIN/1.73 = 47472) eGFR NON- AMER. (test 94 ML/MIN/1.73 code = 13128) CALCULATED BUN/CREAT (test 14 RATIO code = [...] code = 2219) 14 U/L COMPREHENSIVE METABOLIC [id number] 00:00:00 Test Item Value Reference Range Interpretation Comments GLUCOSE (test code = 2217) 105 MG/DL BUN (test code = 2208) 11 MG/DL CREATININE (test code = 2214) 0.80 MG/DL eGFR AMER. (test code 109 ML/MIN/1.73 = 72593) eGFR NON- AMER. (test 94 ML/MIN/1.73 code = 72310) CALCULATED BUN/CREAT (test 14 RATIO code = [...] (test code = 2219) 14 U/L LIPID [id number] 00:00:00 Test Item Value Reference Range Interpretation Comments CHOLESTEROL (test code = 2210) 211 MG/DL TRIGLYCERIDES (test code = 2232) 209 MG/DL HDL CHOLESTEROL (test code = 2220) 38 MG/DL CALCULATED LDL CHOL (test code = 131 MG/DL 2237) RISK RATIO LDL/HDL (test code = 3.45 RATIO 2238) LIPID [id number] 00:00:00 Test Item Value Reference Range Interpretation Comments CHOLESTEROL (test code = 2210) 211 MG/DL TRIGLYCERIDES (test code = 2232) 209 MG/DL HDL CHOLESTEROL (test code = 2220) 38 MG/DL CALCULATED LDL CHOL (test code = 131 MG/DL 2237) RISK RATIO LDL/HDL (test code = 3.45 RATIO 2238) CBC W/AUTO [id number] 00:00:00 Test Item Value Reference Range Interpretation [...] code = 1015) 254 K/UL CBC W/AUTO [id number] 00:00:00 Test Item Value Reference Range Interpretation [...] code = 1015) 254 K/UL CBC W/AUTO [id number] 00:00:00 Test Item Value Reference Range Interpretation [...] (test code = 1015) 254 K/UL HEMOGLOBIN [id number] 00:00:00 Test Item Value Reference Range Interpretation Comments HEMOGLOBIN A1c (test code = 91345) 6.9 % HEMOGLOBIN [id number] 00:00:00 Test Item Value Reference Range Interpretation Comments HEMOGLOBIN A1c (test code = 68681) 6.9 % HEMOGLOBIN [id number] 00:00:00 Test Item Value Reference Range Interpretation Comments HEMOGLOBIN A1c (test code = 90527) 6.9 % [id number] 00:00:00 Test Item Value Reference Range Interpretation Comments TSH (test code = 2821) 0.5 UIU/ML [id number] 00:00:00 Test Item Value Reference Range Interpretation Comments TSH (test code = 2821) 0.5 UIU/ML [id number] 00:00:00 Test Item Value Reference Range Interpretation Comments TSH (test code = 2821) 0.5 UIU/ML HEPATITIS A IgM [REFLEX]2015-06-24 00:00:00 Test Item Value Reference Range Interpretation Comments HEPATITIS A IgM (test code = NON-REACTIVE 2728) CHLAMYDIA, AMPLIFIED, [id number] 00:00:00 Test Item Value Reference Range Interpretation Comments CHLAMYDIA, AMPLIFIED (test code = NEGATIVE 46170) CHLAMYDIA, AMPLIFIED, [id number] 00:00:00 Test Item Value Reference Range Interpretation Comments CHLAMYDIA, AMPLIFIED (test code = NEGATIVE 47572) GC, AMPLIFIED, [id number] 00:00:00 Test Item Value Reference Range Interpretation Comments GONORRHEA, AMPLIFIED (test code = NEGATIVE 86371) GC, AMPLIFIED, [id number] 00:00:00 Test Item Value Reference Range Interpretation Comments GONORRHEA, AMPLIFIED (test code = NEGATIVE 50322) HIV AB/AG COMBO RFLX [id number] 00:00:00 Test Item Value Reference Range Interpretation Comments HIV AB/AG COMBO RFLX CONF (test NON-REACTIVE code = 3514) HIV AB/AG COMBO RFLX [id number] 00:00:00 Test Item Value Reference Range Interpretation Comments HIV AB/AG COMBO RFLX CONF (test NON-REACTIVE code = 3514) [id number] 00:00:00 Test Item Value Reference Range Interpretation Comments RPR RESULT (test code = NON-REACTIVE 3501) RPR TITER (test code = 3500) NOT INDIC. TITER [id number] 00:00:00 Test Item Value Reference Range Interpretation Comments RPR RESULT (test code = NON-REACTIVE 3501) RPR TITER (test code = 3500) NOT INDIC. TITER [id number] 00:00:00 Test Item Value Reference Range Interpretation [...] INTERPRETATION HEPATITIS B: (NOTE) (test code = 84954) INTERPRETATION HEPATITIS C: (NOTE) (test code = 98782) HEPATITIS PROFILE (A,B,C)2015-06-24 00:00:00 Test Item Value [...] INTERPRETATION HEPATITIS B: (NOTE) (test code = 99836) INTERPRETATION HEPATITIS C: (NOTE) (test code = 38497) COMPREHENSIVE METABOLIC [id number] 00:00:00 Test Item Value Reference Range Interpretation Comments GLUCOSE (test code = 2217) 105 MG/DL BUN (test code = 2208) 11 MG/DL CREATININE (test code = 2214) 0.80 MG/DL eGFR AMER. (test code 109 ML/MIN/1.73 = 68278) eGFR NON- AMER. (test 94 ML/MIN/1.73 code = 15057) CALCULATED BUN/CREAT (test 14 RATIO code = [...] code = 2219) 14 U/L COMPREHENSIVE METABOLIC [id number] 00:00:00 Test Item Value Reference Range Interpretation Comments GLUCOSE (test code = 2217) 105 MG/DL BUN (test code = 2208) 11 MG/DL CREATININE (test code = 2214) 0.80 MG/DL eGFR AMER. (test code 109 ML/MIN/1.73 = 09747) eGFR NON- AMER. (test 94 ML/MIN/1.73 code = 82762) CALCULATED BUN/CREAT (test 14 RATIO code = 2235) SODIUM (test code = 2231) 139 MEQ/L POTASSIUM (test code = 2228) 3.8 MEQ/L CHLORIDE (test code = 2215) 102 MEQ/L CARBON DIOXIDE (test code = 22 MEQ/L 220) CALCIUM (test code = 2209) 9.4 MG/DL PROTEIN, TOTAL (test code = 7.4 G/DL 2229) ALBUMIN (test code = 2201) 4.4 G/DL CALCULATED GLOBULIN (test 3.0 G/DL code = 2240) CALCULATED A/G RATIO (test 1.5 RATIO code = 2234) BILIRUBIN, TOTAL (test code = 0.5 MG/DL 220) ALKALINE PHOSPHATASE (test 36 U/L code = 2204) SGOT (AST) (test code = 2218) 14 U/L SGPT (ALT) (test code = 2219) 14 U/L LIPID [id number] 00:00:00 Test Item Value Reference Range Interpretation Comments CHOLESTEROL (test code = 2210) 211 MG/DL TRIGLYCERIDES (test code = 2232) 209 MG/DL HDL CHOLESTEROL (test code = 2220) 38 MG/DL CALCULATED LDL CHOL (test code = 131 MG/DL 2237) RISK RATIO LDL/HDL (test code = 3.45 RATIO 2238) LIPID [id number] 00:00:00 Test Item Value Reference Range Interpretation Comments CHOLESTEROL (test code = 2210) 211 MG/DL TRIGLYCERIDES (test code = 2232) 209 MG/DL HDL CHOLESTEROL (test code = 2220) 38 MG/DL CALCULATED LDL CHOL (test code = 131 MG/DL 2237) RISK RATIO LDL/HDL (test code = 3.45 RATIO 2238) CBC W/AUTO [id number] 00:00:00 Test Item Value Reference Range Interpretation [...] code = 1015) 254 K/UL CBC W/AUTO [id number] 00:00:00 Test Item Value Reference Range Interpretation [...] code = 1015) 254 K/UL CBC W/AUTO [id number] 00:00:00 Test Item Value Reference Range Interpretation [...] (test code = 1015) 254 K/UL HEMOGLOBIN [id number] 00:00:00 Test Item Value Reference Range Interpretation Comments HEMOGLOBIN A1c (test code = 13282) 6.9 % HEMOGLOBIN [id number] 00:00:00 Test Item Value Reference Range Interpretation Comments HEMOGLOBIN A1c (test code = 27176) 6.9 % HEMOGLOBIN [id number] 00:00:00 Test Item Value Reference Range Interpretation Comments HEMOGLOBIN A1c (test code = 30680) 6.9 % [id number] 00:00:00 Test Item Value Reference Range Interpretation Comments TSH (test code = 2821) 0.5 UIU/ML [id number] 00:00:00 Test Item Value Reference Range Interpretation Comments TSH (test code = 2821) 0.5 UIU/ML [id number] 00:00:00 Test Item Value Reference Range Interpretation Comments TSH (test code = 2821) 0.5 UIU/ML HEPATITIS A IgM [REFLEX]2015-06-24 00:00:00 Test Item Value Reference Range Interpretation Comments HEPATITIS A IgM (test code = NON-REACTIVE 2728) CHLAMYDIA, AMPLIFIED, [id number] 00:00:00 Test Item Value Reference Range Interpretation Comments CHLAMYDIA, AMPLIFIED (test code = NEGATIVE 83066) CHLAMYDIA, AMPLIFIED, [id number] 00:00:00 Test Item Value Reference Range Interpretation Comments CHLAMYDIA, AMPLIFIED (test code = NEGATIVE 44051) GC, AMPLIFIED, [id number] 00:00:00 Test Item Value Reference Range Interpretation Comments GONORRHEA, AMPLIFIED (test code = NEGATIVE 98696) GC, AMPLIFIED, [id number] 00:00:00 Test Item Value Reference Range Interpretation Comments GONORRHEA, AMPLIFIED (test code = NEGATIVE 94731) HIV AB/AG COMBO RFLX [id number] 00:00:00 Test Item Value Reference Range Interpretation Comments HIV AB/AG COMBO RFLX CONF (test NON-REACTIVE code = 3514) HIV AB/AG COMBO RFLX [id number] 00:00:00 Test Item Value Reference Range Interpretation Comments HIV AB/AG COMBO RFLX CONF (test NON-REACTIVE code = 3514) [id number] 00:00:00 Test Item Value Reference Range Interpretation Comments RPR RESULT (test code = NON-REACTIVE 3501) RPR TITER (test code = 3500) NOT INDIC. TITER [id number] 00:00:00 Test Item Value Reference Range Interpretation Comments RPR RESULT (test code = NON-REACTIVE 3501) RPR TITER (test code = 3500) NOT INDIC. TITER [id number] 00:00:00 Test Item Value Reference Range Interpretation [...] INTERPRETATION HEPATITIS B: (NOTE) (test code = 81320) INTERPRETATION HEPATITIS C: (NOTE) (test code = 03341) HEPATITIS PROFILE (A,B,C)2015-06-24 00:00:00 Test Item Value [...] INTERPRETATION HEPATITIS B: (NOTE) (test code = 83076) INTERPRETATION HEPATITIS C: (NOTE) (test code = 59104) COMPREHENSIVE METABOLIC [id number] 00:00:00 Test Item Value Reference Range Interpretation Comments GLUCOSE (test code = 2217) 105 MG/DL BUN (test code = 2208) 11 MG/DL CREATININE (test code = 2214) 0.80 MG/DL eGFR AMER. (test code 109 ML/MIN/1.73 = 47879) eGFR NON- AMER. (test 94 ML/MIN/1.73 code = 84322) CALCULATED BUN/CREAT (test 14 RATIO code = [...] code = 2219) 14 U/L COMPREHENSIVE METABOLIC [id number] 00:00:00 Test Item Value Reference Range Interpretation Comments GLUCOSE (test code = 2217) 105 MG/DL BUN (test code = 2208) 11 MG/DL CREATININE (test code = 2214) 0.80 MG/DL eGFR AMER. (test code 109 ML/MIN/1.73 = 23302) eGFR NON- AMER. (test 94 ML/MIN/1.73 code = 60219) CALCULATED BUN/CREAT (test 14 RATIO code = [...] (test code = 2219) 14 U/L LIPID [id number] 00:00:00 Test Item Value Reference Range Interpretation Comments CHOLESTEROL (test code = 2210) 211 MG/DL TRIGLYCERIDES (test code = 2232) 209 MG/DL HDL CHOLESTEROL (test code = 2220) 38 MG/DL CALCULATED LDL CHOL (test code = 131 MG/DL 2237) RISK RATIO LDL/HDL (test code = 3.45 RATIO 2238) LIPID [id number] 00:00:00 Test Item Value Reference Range Interpretation Comments CHOLESTEROL (test code = 2210) 211 MG/DL TRIGLYCERIDES (test code = 2232) 209 MG/DL HDL CHOLESTEROL (test code = 2220) 38 MG/DL CALCULATED LDL CHOL (test code = 131 MG/DL 2237) RISK RATIO LDL/HDL (test code = 3.45 RATIO 2238) CBC W/AUTO [id number] 00:00:00 Test Item Value Reference Range Interpretation [...] code = 1015) 254 K/UL CBC W/AUTO [id number] 00:00:00 Test Item Value Reference Range Interpretation [...] code = 1015) 254 K/UL CBC W/AUTO [id number] 00:00:00 Test Item Value Reference Range Interpretation [...] (test code = 1015) 254 K/UL HEMOGLOBIN [id number] 00:00:00 Test Item Value Reference Range Interpretation Comments HEMOGLOBIN A1c (test code = 13313) 6.9 % HEMOGLOBIN [id number] 00:00:00 Test Item Value Reference Range Interpretation Comments HEMOGLOBIN A1c (test code = 30642) 6.9 % HEMOGLOBIN [id number] 00:00:00 Test Item Value Reference Range Interpretation Comments HEMOGLOBIN A1c (test code = 14920) 6.9 % [id number] 00:00:00 Test Item Value Reference Range Interpretation Comments TSH (test code = 2821) 0.5 UIU/ML [id number] 00:00:00 Test Item Value Reference Range Interpretation Comments TSH (test code = 2821) 0.5 UIU/ML [id number] 00:00:00 Test Item Value Reference Range Interpretation Comments TSH (test code = 2821) 0.5 UIU/ML HEPATITIS A IgM [REFLEX]2015-06-24 00:00:00 Test Item Value Reference Range Interpretation Comments HEPATITIS A IgM (test code = NON-REACTIVE 8) CHLAMYDIA, AMPLIFIED, [id number] 00:00:00 Test Item Value Reference Range Interpretation Comments CHLAMYDIA, AMPLIFIED (test code = NEGATIVE 11943) CHLAMYDIA, AMPLIFIED, [id number] 00:00:00 Test Item Value Reference Range Interpretation Comments CHLAMYDIA, AMPLIFIED (test code = NEGATIVE 80282) GC, AMPLIFIED, [id number] 00:00:00 Test Item Value Reference Range Interpretation Comments GONORRHEA, AMPLIFIED (test code = NEGATIVE 88709) GC, AMPLIFIED, [id number] 00:00:00 Test Item Value Reference Range Interpretation Comments GONORRHEA, AMPLIFIED (test code = NEGATIVE 95453) HIV AB/AG COMBO RFLX [id number] 00:00:00 Test Item Value Reference Range Interpretation Comments HIV AB/AG COMBO RFLX CONF (test NON-REACTIVE code = 3514) HIV AB/AG COMBO RFLX [id number] 00:00:00 Test Item Value Reference Range Interpretation Comments HIV AB/AG COMBO RFLX CONF (test NON-REACTIVE code = 3514) [id number] 00:00:00 Test Item Value Reference Range Interpretation Comments RPR RESULT (test code = NON-REACTIVE 3501) RPR TITER (test code = 3500) NOT INDIC. TITER [id number] 00:00:00 Test Item Value Reference Range Interpretation Comments RPR RESULT (test code = NON-REACTIVE 3501) RPR TITER (test code = 3500) NOT INDIC. TITER [id number] 00:00:00 Test Item Value Reference Range Interpretation [...] INTERPRETATION HEPATITIS B: (NOTE) (test code = 22960) INTERPRETATION HEPATITIS C: (NOTE) (test code = 42977) HEPATITIS PROFILE (A,B,C)2015-06-24 00:00:00 Test Item Value [...] INTERPRETATION HEPATITIS B: (NOTE) (test code = 79532) INTERPRETATION HEPATITIS C: (NOTE) (test code = 76182) COMPREHENSIVE METABOLIC [id number] 00:00:00 Test Item Value Reference Range Interpretation Comments GLUCOSE (test code = 2217) 105 MG/DL BUN (test code = 2208) 11 MG/DL CREATININE (test code = 2214) 0.80 MG/DL eGFR AMER. (test code 109 ML/MIN/1.73 = 38671) eGFR NON- AMER. (test 94 ML/MIN/1.73 code = 37076) CALCULATED BUN/CREAT (test 14 RATIO code = [...] code = 2219) 14 U/L COMPREHENSIVE METABOLIC [id number] 00:00:00 Test Item Value Reference Range Interpretation Comments GLUCOSE (test code = 2217) 105 MG/DL BUN (test code = 2208) 11 MG/DL CREATININE (test code = 2214) 0.80 MG/DL eGFR AMER. (test code 109 ML/MIN/1.73 = 71823) eGFR NON- AMER. (test 94 ML/MIN/1.73 code = 81012) CALCULATED BUN/CREAT (test 14 RATIO code = [...] (test code = 2219) 14 U/L LIPID [id number] 00:00:00 Test Item Value Reference Range Interpretation Comments CHOLESTEROL (test code = 2210) 211 MG/DL TRIGLYCERIDES (test code = 2232) 209 MG/DL HDL CHOLESTEROL (test code = 2220) 38 MG/DL CALCULATED LDL CHOL (test code = 131 MG/DL 2236) RISK RATIO LDL/HDL (test code = 3.45 RATIO 2238) LIPID [id number] 00:00:00 Test Item Value Reference Range Interpretation Comments CHOLESTEROL (test code = 2210) 211 MG/DL TRIGLYCERIDES (test code = 2232) 209 MG/DL HDL CHOLESTEROL (test code = 2220) 38 MG/DL CALCULATED LDL CHOL (test code = 131 MG/DL 7) RISK RATIO LDL/HDL (test code = 3.45 RATIO 2238) CBC W/AUTO [id number] 00:00:00 Test Item Value Reference Range Interpretation [...] code = 1015) 254 K/UL CBC W/AUTO [id number] 00:00:00 Test Item Value Reference Range Interpretation [...] code = 1015) 254 K/UL CBC W/AUTO [id number] 00:00:00 Test Item Value Reference Range Interpretation [...] (test code = 1015) 254 K/UL HEMOGLOBIN [id number] 00:00:00 Test Item Value Reference Range Interpretation Comments HEMOGLOBIN A1c (test code = 66051) 6.9 % HEMOGLOBIN [id number] 00:00:00 Test Item Value Reference Range Interpretation Comments HEMOGLOBIN A1c (test code = 20334) 6.9 % HEMOGLOBIN [id number] 00:00:00 Test Item Value Reference Range Interpretation Comments HEMOGLOBIN A1c (test code = 17317) 6.9 % [id number] 00:00:00 Test Item Value Reference Range Interpretation Comments TSH (test code = 2821) 0.5 UIU/ML [id number] 00:00:00 Test Item Value Reference Range Interpretation Comments TSH (test code = 2821) 0.5 UIU/ML [id number] 00:00:00 Test Item Value Reference Range Interpretation Comments TSH (test code = 2821) 0.5 UIU/ML HEPATITIS A IgM [REFLEX]2015-06-24 00:00:00 Test Item Value Reference Range Interpretation Comments HEPATITIS A IgM (test code = NON-REACTIVE 2728) CHLAMYDIA, AMPLIFIED, [id number] 00:00:00 Test Item Value Reference Range Interpretation Comments CHLAMYDIA, AMPLIFIED (test code = NEGATIVE 32053) CHLAMYDIA, AMPLIFIED, [id number] 00:00:00 Test Item Value Reference Range Interpretation Comments CHLAMYDIA, AMPLIFIED (test code = NEGATIVE 56154) GC, AMPLIFIED, [id number] 00:00:00 Test Item Value Reference Range Interpretation Comments GONORRHEA, AMPLIFIED (test code = NEGATIVE 17403) GC, AMPLIFIED, [id number] 00:00:00 Test Item Value Reference Range Interpretation Comments GONORRHEA, AMPLIFIED (test code = NEGATIVE 28937) HIV AB/AG COMBO RFLX [id number] 00:00:00 Test Item Value Reference Range Interpretation Comments HIV AB/AG COMBO RFLX CONF (test NON-REACTIVE code = 3514) HIV AB/AG COMBO RFLX [id number] 00:00:00 Test Item Value Reference Range Interpretation Comments HIV AB/AG COMBO RFLX CONF (test NON-REACTIVE code = 3514) [id number] 00:00:00 Test Item Value Reference Range Interpretation Comments RPR RESULT (test code = NON-REACTIVE 3501) RPR TITER (test code = 3500) NOT INDIC. TITER [id number] 00:00:00 Test Item Value Reference Range Interpretation Comments RPR RESULT (test code = NON-REACTIVE 3501) RPR TITER (test code = 3500) NOT INDIC. TITER [id number] 00:00:00 Test Item Value Reference Range Interpretation [...] INTERPRETATION HEPATITIS B: (NOTE) (test code = 02539) INTERPRETATION HEPATITIS C: (NOTE) (test code = 44039) HEPATITIS PROFILE (A,B,C)2015-06-24 00:00:00 Test Item Value [...] INTERPRETATION HEPATITIS B: (NOTE) (test code = 71651) INTERPRETATION HEPATITIS C: (NOTE) (test code = 95551) COMPREHENSIVE METABOLIC [id number] 00:00:00 Test Item Value Reference Range Interpretation Comments GLUCOSE (test code = 2217) 105 MG/DL BUN (test code = 2208) 11 MG/DL CREATININE (test code = 2214) 0.80 MG/DL eGFR AMER. (test code 109 ML/MIN/1.73 = 23301) eGFR NON- AMER. (test 94 ML/MIN/1.73 code = 54918) CALCULATED BUN/CREAT (test 14 RATIO code = [...] code = 2219) 14 U/L COMPREHENSIVE METABOLIC [id number] 00:00:00 Test Item Value Reference Range Interpretation Comments GLUCOSE (test code = 2217) 105 MG/DL BUN (test code = 2208) 11 MG/DL CREATININE (test code = 2214) 0.80 MG/DL eGFR AMER. (test code 109 ML/MIN/1.73 = 83598) eGFR NON- AMER. (test 94 ML/MIN/1.73 code = 51930) CALCULATED BUN/CREAT (test 14 RATIO code = [...] (test code = 2219) 14 U/L LIPID [id number] 00:00:00 Test Item Value Reference Range Interpretation Comments CHOLESTEROL (test code = 2210) 211 MG/DL TRIGLYCERIDES (test code = 2232) 209 MG/DL HDL CHOLESTEROL (test code = 2220) 38 MG/DL CALCULATED LDL CHOL (test code = 131 MG/DL 2237) RISK RATIO LDL/HDL (test code = 3.45 RATIO 2238) LIPID [id number] 00:00:00 Test Item Value Reference Range Interpretation Comments CHOLESTEROL (test code = 2210) 211 MG/DL TRIGLYCERIDES (test code = 2232) 209 MG/DL HDL CHOLESTEROL (test code = 2220) 38 MG/DL CALCULATED LDL CHOL (test code = 131 MG/DL 2237) RISK RATIO LDL/HDL (test code = 3.45 RATIO 2238) CBC W/AUTO [id number] 00:00:00 Test Item Value Reference Range Interpretation [...] code = 1015) 254 K/UL CBC W/AUTO [id number] 00:00:00 Test Item Value Reference Range Interpretation [...] code = 1015) 254 K/UL CBC W/AUTO [id number] 00:00:00 Test Item Value Reference Range Interpretation [...] (test code = 1015) 254 K/UL HEMOGLOBIN [id number] 00:00:00 Test Item Value Reference Range Interpretation Comments HEMOGLOBIN A1c (test code = 67940) 6.9 % HEMOGLOBIN [id number] 00:00:00 Test Item Value Reference Range Interpretation Comments HEMOGLOBIN A1c (test code = 65931) 6.9 % HEMOGLOBIN [id number] 00:00:00 Test Item Value Reference Range Interpretation Comments HEMOGLOBIN A1c (test code = 38541) 6.9 % [id number] 00:00:00 Test Item Value Reference Range Interpretation Comments TSH (test code = 2821) 0.5 UIU/ML [id number] 00:00:00 Test Item Value Reference Range Interpretation Comments TSH (test code = 2821) 0.5 UIU/ML [id number] 00:00:00 Test Item Value Reference Range Interpretation Comments TSH (test code = 2821) 0.5 UIU/ML HEPATITIS A IgM [REFLEX]2015-06-24 00:00:00 Test Item Value Reference Range Interpretation Comments HEPATITIS A IgM (test code = NON-REACTIVE 9368) CHLAMYDIA, AMPLIFIED, [id number] 00:00:00 Test Item Value Reference Range Interpretation Comments CHLAMYDIA, AMPLIFIED (test code = NEGATIVE 99981) GC, AMPLIFIED, [id number] 00:00:00 Test Item Value Reference Range Interpretation Comments GONORRHEA, AMPLIFIED (test code = NEGATIVE 91365) HIV AB/AG COMBO RFLX [id number] 00:00:00 Test Item Value Reference Range Interpretation Comments HIV AB/AG COMBO RFLX CONF (test NON-REACTIVE code = 3514) [id number] 00:00:00 Test Item Value Reference Range Interpretation Comments RPR RESULT (test code = NON-REACTIVE 3501) RPR TITER (test code = 3500) NOT INDIC. TITER CHLAMYDIA, AMPLIFIED, [id number] 00:00:00 Test Item Value Reference Range Interpretation Comments CHLAMYDIA, AMPLIFIED (test code = NEGATIVE 92249) [id number] 00:00:00 Test Item Value Reference Range Interpretation Comments RPR RESULT (test code = NON-REACTIVE 3501) RPR TITER (test code = 3500) NOT INDIC. TITER CHLAMYDIA, AMPLIFIED, [id number] 00:00:00 Test Item Value Reference Range Interpretation Comments CHLAMYDIA, AMPLIFIED (test code = NEGATIVE 12859) GC, AMPLIFIED, [id number] 00:00:00 Test Item Value Reference Range Interpretation Comments GONORRHEA, AMPLIFIED (test code = NEGATIVE 84479) GC, AMPLIFIED, [id number] 00:00:00 Test Item Value Reference Range Interpretation Comments GONORRHEA, AMPLIFIED (test code = NEGATIVE 36915) HIV AB/AG COMBO RFLX [id number] 00:00:00 Test Item Value Reference Range Interpretation Comments HIV AB/AG COMBO RFLX CONF (test NON-REACTIVE code = 3514) HIV AB/AG COMBO RFLX [id number] 00:00:00 Test Item Value Reference Range Interpretation Comments HIV AB/AG COMBO RFLX CONF (test NON-REACTIVE code = 3514) [id number] 00:00:00 Test Item Value Reference Range Interpretation Comments RPR RESULT (test code = NON-REACTIVE 3501) RPR TITER (test code = 3500) NOT INDIC. TITER [id number] 00:00:00 Test Item Value Reference Range Interpretation Comments RPR RESULT (test code = NON-REACTIVE 3501) RPR TITER (test code = 3500) NOT INDIC. TITER [id number] 00:00:00 Test Item Value Reference Range Interpretation [...] INTERPRETATION HEPATITIS B: (NOTE) (test code = 25946) INTERPRETATION HEPATITIS C: (NOTE) (test code = 97147) HEPATITIS PROFILE (A,B,C)2015-06-24 00:00:00 Test Item Value [...] INTERPRETATION HEPATITIS B: (NOTE) (test code = 77698) INTERPRETATION HEPATITIS C: (NOTE) (test code = 51070) HEPATITIS PROFILE (A,B,C)2015-06-24 00:00:00 Test Item Value [...] INTERPRETATION HEPATITIS B: (NOTE) (test code = 40095) INTERPRETATION HEPATITIS C: (NOTE) (test code = 70161) COMPREHENSIVE METABOLIC [id number] 00:00:00 Test Item Value Reference Range Interpretation Comments GLUCOSE (test code = 2217) 105 MG/DL BUN (test code = 2208) 11 MG/DL CREATININE (test code = 2214) 0.80 MG/DL eGFR AMER. (test code 109 ML/MIN/1.73 = 69636) eGFR NON- AMER. (test 94 ML/MIN/1.73 code = 64232) CALCULATED BUN/CREAT (test 14 RATIO code = [...] code = 2219) 14 U/L COMPREHENSIVE METABOLIC [id number] 00:00:00 Test Item Value Reference Range Interpretation Comments GLUCOSE (test code = 2217) 105 MG/DL BUN (test code = 2208) 11 MG/DL CREATININE (test code = 2214) 0.80 MG/DL eGFR AMER. (test code 109 ML/MIN/1.73 = 77909) eGFR NON- AMER. (test 94 ML/MIN/1.73 code = 19810) CALCULATED BUN/CREAT (test 14 RATIO code = [...] (test code = 2219) 14 U/L LIPID [id number] 00:00:00 Test Item Value Reference Range Interpretation Comments CHOLESTEROL (test code = 2210) 211 MG/DL TRIGLYCERIDES (test code = 2232) 209 MG/DL HDL CHOLESTEROL (test code = 2220) 38 MG/DL CALCULATED LDL CHOL (test code = 131 MG/DL 2237) RISK RATIO LDL/HDL (test code = 3.45 RATIO 2238) LIPID [id number] 00:00:00 Test Item Value Reference Range Interpretation Comments CHOLESTEROL (test code = 2210) 211 MG/DL TRIGLYCERIDES (test code = 2232) 209 MG/DL HDL CHOLESTEROL (test code = 2220) 38 MG/DL CALCULATED LDL CHOL (test code = 131 MG/DL 2237) RISK RATIO LDL/HDL (test code = 3.45 RATIO 2238) CBC W/AUTO [id number] 00:00:00 Test Item Value Reference Range Interpretation [...] code = 1015) 254 K/UL CBC W/AUTO [id number] 00:00:00 Test Item Value Reference Range Interpretation [...] code = 1015) 254 K/UL CBC W/AUTO [id number] 00:00:00 Test Item Value Reference Range Interpretation [...] (test code = 1015) 254 K/UL HEMOGLOBIN [id number] 00:00:00 Test Item Value Reference Range Interpretation Comments HEMOGLOBIN A1c (test code = 72728) 6.9 % HEMOGLOBIN [id number] 00:00:00 Test Item Value Reference Range Interpretation Comments HEMOGLOBIN A1c (test code = 99425) 6.9 % HEMOGLOBIN [id number] 00:00:00 Test Item Value Reference Range Interpretation Comments HEMOGLOBIN A1c (test code = 58572) 6.9 % [id number] 00:00:00 Test Item Value Reference Range Interpretation Comments TSH (test code = 2821) 0.5 UIU/ML [id number] 00:00:00 Test Item Value Reference Range Interpretation Comments TSH (test code = 2821) 0.5 UIU/ML [id number] 00:00:00 Test Item Value Reference Range Interpretation Comments TSH (test code = 2821) 0.5 UIU/ML HEPATITIS A IgM [REFLEX]2015-06-24 00:00:00 Test Item Value Reference Range Interpretation Comments HEPATITIS A IgM (test code = NON-REACTIVE 2727) COMPREHENSIVE METABOLIC [id number] 00:00:00 Test Item Value Reference Range Interpretation Comments GLUCOSE (test code = 2217) 105 MG/DL BUN (test code = 2208) 11 MG/DL CREATININE (test code = 2214) 0.80 MG/DL eGFR AMER. (test code 109 ML/MIN/1.73 = 44483) eGFR NON- AMER. (test 94 ML/MIN/1.73 code = 13151) CALCULATED BUN/CREAT (test 14 RATIO code = [...] (test code = 2219) 14 U/L LIPID [id number] 00:00:00 Test Item Value Reference Range Interpretation Comments CHOLESTEROL (test code = 2210) 211 MG/DL TRIGLYCERIDES (test code = 2232) 209 MG/DL HDL CHOLESTEROL (test code = 2220) 38 MG/DL CALCULATED LDL CHOL (test code = 131 MG/DL 2236) RISK RATIO LDL/HDL (test code = 3.45 RATIO 2238) CBC W/AUTO [id number] 00:00:00 Test Item Value Reference Range Interpretation [...] code = 1015) 254 K/UL CBC W/AUTO [id number] 00:00:00 Test Item Value Reference Range Interpretation [...] (test code = 1015) 254 K/UL HEMOGLOBIN [id number] 00:00:00 Test Item Value Reference Range Interpretation Comments HEMOGLOBIN A1c (test code = 98792) 6.9 % HEMOGLOBIN [id number] 00:00:00 Test Item Value Reference Range Interpretation Comments HEMOGLOBIN A1c (test code = 06688) 6.9 % [id number] 00:00:00 Test Item Value Reference Range Interpretation Comments TSH (test code = 2821) 0.5 UIU/ML [id number] 00:00:00 Test Item Value Reference Range Interpretation Comments TSH (test code = 2821) 0.5 UIU/ML HEPATITIS A IgM [REFLEX]2015-06-24 00:00:00 Test Item Value Reference Range Interpretation Comments HEPATITIS A IgM (test code = NON-REACTIVE 3587) CHLAMYDIA, AMPLIFIED, [id number] 00:00:00 Test Item Value Reference Range Interpretation Comments CHLAMYDIA, AMPLIFIED (test code = NEGATIVE 43556) CHLAMYDIA, AMPLIFIED, [id number] 00:00:00 Test Item Value Reference Range Interpretation Comments CHLAMYDIA, AMPLIFIED (test code = NEGATIVE 95847) GC, AMPLIFIED, [id number] 00:00:00 Test Item Value Reference Range Interpretation Comments GONORRHEA, AMPLIFIED (test code = NEGATIVE 51293) GC, AMPLIFIED, [id number] 00:00:00 Test Item Value Reference Range Interpretation Comments GONORRHEA, AMPLIFIED (test code = NEGATIVE 16181) HIV AB/AG COMBO RFLX [id number] 00:00:00 Test Item Value Reference Range Interpretation Comments HIV AB/AG COMBO RFLX CONF (test NON-REACTIVE code = 3514) HIV AB/AG COMBO RFLX [id number] 00:00:00 Test Item Value Reference Range Interpretation Comments HIV AB/AG COMBO RFLX CONF (test NON-REACTIVE code = 3514) [id number] 00:00:00 Test Item Value Reference Range Interpretation Comments RPR RESULT (test code = NON-REACTIVE 3501) RPR TITER (test code = 3500) NOT INDIC. TITER [id number] 00:00:00 Test Item Value Reference Range Interpretation Comments RPR RESULT (test code = NON-REACTIVE 3501) RPR TITER (test code = 3500) NOT INDIC. TITER [id number] 00:00:00 Test Item Value Reference Range Interpretation [...] INTERPRETATION HEPATITIS B: (NOTE) (test code = 66899) INTERPRETATION HEPATITIS C: (NOTE) (test code = 58198) HEPATITIS PROFILE (A,B,C)2015-06-24 00:00:00 Test Item Value Reference Range Interpretation Comments HEPATITIS A TOTAL AB (test code REACTIVE = 2725) HEPATITIS B SURF AG (test code = NON-REACTIVE 2738) HEP B CORE TOTAL AB (test code = NON-REACTIVE 9) HEPATITIS B SURFACE AB (test NON-REACTIVE code = 2737) HEPATITIS C ANTIBODY (test code NON-REACTIVE = 4675) INTERPRETATION HEPATITIS A: (NOTE) (test code = 2552) INTERPRETATION HEPATITIS B: (NOTE) (test code = 54038) INTERPRETATION HEPATITIS C: (NOTE) (test code = 10716) COMPREHENSIVE METABOLIC [id number] 00:00:00 Test Item Value Reference Range Interpretation Comments GLUCOSE (test code = 2217) 105 MG/DL BUN (test code = 2208) 11 MG/DL CREATININE (test code = 2214) 0.80 MG/DL eGFR AMER. (test code 109 ML/MIN/1.73 = 89169) eGFR NON- AMER. (test 94 ML/MIN/1.73 code = 56295) CALCULATED BUN/CREAT (test 14 RATIO code = [...] code = 2219) 14 U/L COMPREHENSIVE METABOLIC [id number] 00:00:00 Test Item Value Reference Range Interpretation Comments GLUCOSE (test code = 2217) 105 MG/DL BUN (test code = 2208) 11 MG/DL CREATININE (test code = 2214) 0.80 MG/DL eGFR AMER. (test code 109 ML/MIN/1.73 = 98267) eGFR NON- AMER. (test 94 ML/MIN/1.73 code = 75676) CALCULATED BUN/CREAT (test 14 RATIO code = [...] (test code = 2219) 14 U/L LIPID [id number] 00:00:00 Test Item Value Reference Range Interpretation Comments CHOLESTEROL (test code = 2210) 211 MG/DL TRIGLYCERIDES (test code = 2232) 209 MG/DL HDL CHOLESTEROL (test code = 2220) 38 MG/DL CALCULATED LDL CHOL (test code = 131 MG/DL 2237) RISK RATIO LDL/HDL (test code = 3.45 RATIO 2238) LIPID [id number] 00:00:00 Test Item Value Reference Range Interpretation Comments CHOLESTEROL (test code = 2210) 211 MG/DL TRIGLYCERIDES (test code = 2232) 209 MG/DL HDL CHOLESTEROL (test code = 2220) 38 MG/DL CALCULATED LDL CHOL (test code = 131 MG/DL 2237) RISK RATIO LDL/HDL (test code = 3.45 RATIO 2238) CBC W/AUTO [id number] 00:00:00 Test Item Value Reference Range Interpretation [...] code = 1015) 254 K/UL CBC W/AUTO [id number] 00:00:00 Test Item Value Reference Range Interpretation [...] code = 1015) 254 K/UL CBC W/AUTO [id number] 00:00:00 Test Item Value Reference Range Interpretation [...] (test code = 1015) 254 K/UL HEMOGLOBIN [id number] 00:00:00 Test Item Value Reference Range Interpretation Comments HEMOGLOBIN A1c (test code = 35368) 6.9 % HEMOGLOBIN [id number] 00:00:00 Test Item Value Reference Range Interpretation Comments HEMOGLOBIN A1c (test code = 58086) 6.9 % HEMOGLOBIN [id number] 00:00:00 Test Item Value Reference Range Interpretation Comments HEMOGLOBIN A1c (test code = 65615) 6.9 % [id number] 00:00:00 Test Item Value Reference Range Interpretation Comments TSH (test code = 2821) 0.5 UIU/ML [id number] 00:00:00 Test Item Value Reference Range Interpretation Comments TSH (test code = 2821) 0.5 UIU/ML [id number] 00:00:00 Test Item Value Reference Range Interpretation Comments TSH (test code = 2821) 0.5 UIU/ML HEPATITIS A IgM [REFLEX]2015-06-24 00:00:00 Test Item Value Reference Range Interpretation Comments HEPATITIS A IgM (test code = NON-REACTIVE 2728) CHLAMYDIA, AMPLIFIED, [id number] 00:00:00 Test Item Value Reference Range Interpretation Comments CHLAMYDIA, AMPLIFIED (test code = NEGATIVE 68595) CHLAMYDIA, AMPLIFIED, [id number] 00:00:00 Test Item Value Reference Range Interpretation Comments CHLAMYDIA, AMPLIFIED (test code = NEGATIVE 58946) GC, AMPLIFIED, [id number] 00:00:00 Test Item Value Reference Range Interpretation Comments GONORRHEA, AMPLIFIED (test code = NEGATIVE 29134) GC, AMPLIFIED, [id number] 00:00:00 Test Item Value Reference Range Interpretation Comments GONORRHEA, AMPLIFIED (test code = NEGATIVE 99231) HIV AB/AG COMBO RFLX [id number] 00:00:00 Test Item Value Reference Range Interpretation Comments HIV AB/AG COMBO RFLX CONF (test NON-REACTIVE code = 3514) HIV AB/AG COMBO RFLX [id number] 00:00:00 Test Item Value Reference Range Interpretation Comments HIV AB/AG COMBO RFLX CONF (test NON-REACTIVE code = 3514) [id number] 00:00:00 Test Item Value Reference Range Interpretation Comments RPR RESULT (test code = NON-REACTIVE 3501) RPR TITER (test code = 3500) NOT INDIC. TITER [id number] 00:00:00 Test Item Value Reference Range Interpretation Comments RPR RESULT (test code = NON-REACTIVE 3501) RPR TITER (test code = 3500) NOT INDIC. TITER [id number] 00:00:00 Test Item Value Reference Range Interpretation [...] INTERPRETATION HEPATITIS B: (NOTE) (test code = 42726) INTERPRETATION HEPATITIS C: (NOTE) (test code = 03016) HEPATITIS PROFILE (A,B,C)2015-06-24 00:00:00 Test Item Value [...] INTERPRETATION HEPATITIS B: (NOTE) (test code = 58595) INTERPRETATION HEPATITIS C: (NOTE) (test code = 83409) COMPREHENSIVE METABOLIC [id number] 00:00:00 Test Item Value Reference Range Interpretation Comments GLUCOSE (test code = 2217) 105 MG/DL BUN (test code = 2208) 11 MG/DL CREATININE (test code = 2214) 0.80 MG/DL eGFR AMER. (test code 109 ML/MIN/1.73 = 17150) eGFR NON- AMER. (test 94 ML/MIN/1.73 code = 65567) CALCULATED BUN/CREAT (test 14 RATIO code = [...] code = 2219) 14 U/L COMPREHENSIVE METABOLIC [id number] 00:00:00 Test Item Value Reference Range Interpretation Comments GLUCOSE (test code = 2217) 105 MG/DL BUN (test code = 2208) 11 MG/DL CREATININE (test code = 2214) 0.80 MG/DL eGFR AMER. (test code 109 ML/MIN/1.73 = 38176) eGFR NON- AMER. (test 94 ML/MIN/1.73 code = 09457) CALCULATED BUN/CREAT (test 14 RATIO code = 2235) SODIUM (test code = 2231) 139 MEQ/L POTASSIUM (test code = 2228) 3.8 MEQ/L CHLORIDE (test code = 2215) 102 MEQ/L CARBON DIOXIDE (test code = 22 MEQ/L 6) CALCIUM (test code = 2209) 9.4 MG/DL [...] (test code = 2219) 14 U/L LIPID [id number] 00:00:00 Test Item Value Reference Range Interpretation Comments CHOLESTEROL (test code = 2210) 211 MG/DL TRIGLYCERIDES (test code = 2232) 209 MG/DL HDL CHOLESTEROL (test code = 2220) 38 MG/DL CALCULATED LDL CHOL (test code = 131 MG/DL 2237) RISK RATIO LDL/HDL (test code = 3.45 RATIO 2238) LIPID [id number] 00:00:00 Test Item Value Reference Range Interpretation Comments CHOLESTEROL (test code = 2210) 211 MG/DL TRIGLYCERIDES (test code = 2232) 209 MG/DL HDL CHOLESTEROL (test code = 2220) 38 MG/DL CALCULATED LDL CHOL (test code = 131 MG/DL 2237) RISK RATIO LDL/HDL (test code = 3.45 RATIO 2238) CBC W/AUTO [id number] 00:00:00 Test Item Value Reference Range Interpretation [...] code = 1015) 254 K/UL CBC W/AUTO [id number] 00:00:00 Test Item Value Reference Range Interpretation [...] code = 1015) 254 K/UL CBC W/AUTO [id number] 00:00:00 Test Item Value Reference Range Interpretation [...] (test code = 1015) 254 K/UL HEMOGLOBIN [id number] 00:00:00 Test Item Value Reference Range Interpretation Comments HEMOGLOBIN A1c (test code = 17921) 6.9 % HEMOGLOBIN [id number] 00:00:00 Test Item Value Reference Range Interpretation Comments HEMOGLOBIN A1c (test code = 14928) 6.9 % HEMOGLOBIN [id number] 00:00:00 Test Item Value Reference Range Interpretation Comments HEMOGLOBIN A1c (test code = 49669) 6.9 % [id number] 00:00:00 Test Item Value Reference Range Interpretation Comments TSH (test code = 2821) 0.5 UIU/ML [id number] 00:00:00 Test Item Value Reference Range Interpretation Comments TSH (test code = 2821) 0.5 UIU/ML [id number] 00:00:00 Test Item Value Reference Range Interpretation Comments TSH (test code = 2821) 0.5 UIU/ML HEPATITIS A IgM [REFLEX]2015-06-24 00:00:00 Test Item Value Reference Range Interpretation Comments HEPATITIS A IgM (test code = NON-REACTIVE 9684) COMPREHENSIVE METABOLIC [id number] 00:00:00 Test Item Value Reference Range Interpretation Comments GLUCOSE (test code = 2217) 113 MG/DL BUN (test code = 2208) 22 MG/DL CREATININE (test code = 2214) 0.9 MG/DL eGFR AMER. (test code 85 ML/MIN/1.73 = 84381) eGFR NON- AMER. (test 70 ML/MIN/1.73 code = 27090) CALCULATED BUN/CREAT (test 24 RATIO code = [...] code = 2219) 24 U/L COMPREHENSIVE METABOLIC [id number] 00:00:00 Test Item Value Reference Range Interpretation Comments GLUCOSE (test code = 2217) 113 MG/DL BUN (test code = 2208) 22 MG/DL CREATININE (test code = 2214) 0.9 MG/DL eGFR AMER. (test code 85 ML/MIN/1.73 = 09748) eGFR NON- AMER. (test 70 ML/MIN/1.73 code = 29254) CALCULATED BUN/CREAT (test 24 RATIO code = [...] code = 2219) 24 U/L CBC W/AUTO [id number] 00:00:00 Test Item Value Reference Range Interpretation [...] code = 1015) 270 K/UL CBC W/AUTO [id number] 00:00:00 Test Item Value Reference Range Interpretation [...] code = 1015) 270 K/UL CBC W/AUTO [id number] 00:00:00 Test Item Value Reference Range Interpretation [...] (test code = 1015) 270 K/UL HEMOGLOBIN [id number] 00:00:00 Test Item Value Reference Range Interpretation Comments HEMOGLOBIN A1c (test code = 68663) 7.3 % HEMOGLOBIN [id number] 00:00:00 Test Item Value Reference Range Interpretation Comments HEMOGLOBIN A1c (test code = 31977) 7.3 % HEMOGLOBIN [id number] 00:00:00 Test Item Value Reference Range Interpretation Comments HEMOGLOBIN A1c (test code = 89679) 7.3 % COMPREHENSIVE METABOLIC [id number] 00:00:00 Test Item Value Reference Range Interpretation Comments GLUCOSE (test code = 2217) 113 MG/DL BUN (test code = 2208) 22 MG/DL CREATININE (test code = 2214) 0.9 MG/DL eGFR AMER. (test code 85 ML/MIN/1.73 = 94236) eGFR NON- AMER. (test 70 ML/MIN/1.73 code = 41678) CALCULATED BUN/CREAT (test 24 RATIO code = [...] code = 2219) 24 U/L COMPREHENSIVE METABOLIC [id number] 00:00:00 Test Item Value Reference Range Interpretation Comments GLUCOSE (test code = 2217) 113 MG/DL BUN (test code = 2208) 22 MG/DL CREATININE (test code = 2214) 0.9 MG/DL eGFR AMER. (test code 85 ML/MIN/1.73 = 95851) eGFR NON- AMER. (test 70 ML/MIN/1.73 code = 39767) CALCULATED BUN/CREAT (test 24 RATIO code = [...] code = 2219) 24 U/L CBC W/AUTO [id number] 00:00:00 Test Item Value Reference Range Interpretation [...] code = 1015) 270 K/UL CBC W/AUTO [id number] 00:00:00 Test Item Value Reference Range Interpretation [...] code = 1015) 270 K/UL CBC W/AUTO [id number] 00:00:00 Test Item Value Reference Range Interpretation [...] (test code = 1015) 270 K/UL HEMOGLOBIN [id number] 00:00:00 Test Item Value Reference Range Interpretation Comments HEMOGLOBIN A1c (test code = 05393) 7.3 % HEMOGLOBIN [id number] 00:00:00 Test Item Value Reference Range Interpretation Comments HEMOGLOBIN A1c (test code = 11165) 7.3 % HEMOGLOBIN [id number] 00:00:00 Test Item Value Reference Range Interpretation Comments HEMOGLOBIN A1c (test code = 23966) 7.3 % COMPREHENSIVE METABOLIC [id number] 00:00:00 Test Item Value Reference Range Interpretation Comments GLUCOSE (test code = 2217) 113 MG/DL BUN (test code = 2208) 22 MG/DL CREATININE (test code = 2214) 0.9 MG/DL eGFR AMER. (test code 85 ML/MIN/1.73 = 95538) eGFR NON- AMER. (test 70 ML/MIN/1.73 code = 59037) CALCULATED BUN/CREAT (test 24 RATIO code = [...] code = 2219) 24 U/L COMPREHENSIVE METABOLIC [id number] 00:00:00 Test Item Value Reference Range Interpretation Comments GLUCOSE (test code = 2217) 113 MG/DL BUN (test code = 2208) 22 MG/DL CREATININE (test code = 2214) 0.9 MG/DL eGFR AMER. (test code 85 ML/MIN/1.73 = 87700) eGFR NON- AMER. (test 70 ML/MIN/1.73 code = 10046) CALCULATED BUN/CREAT (test 24 RATIO code = [...] code = 2219) 24 U/L CBC W/AUTO [id number] 00:00:00 Test Item Value Reference Range Interpretation [...] code = 1015) 270 K/UL CBC W/AUTO [id number] 00:00:00 Test Item Value Reference Range Interpretation [...] code = 1015) 270 K/UL CBC W/AUTO [id number] 00:00:00 Test Item Value Reference Range Interpretation [...] (test code = 1015) 270 K/UL HEMOGLOBIN [id number] 00:00:00 Test Item Value Reference Range Interpretation Comments HEMOGLOBIN A1c (test code = 28374) 7.3 % HEMOGLOBIN [id number] 00:00:00 Test Item Value Reference Range Interpretation Comments HEMOGLOBIN A1c (test code = 68601) 7.3 % HEMOGLOBIN [id number] 00:00:00 Test Item Value Reference Range Interpretation Comments HEMOGLOBIN A1c (test code = 40465) 7.3 % COMPREHENSIVE METABOLIC [id number] 00:00:00 Test Item Value Reference Range Interpretation Comments GLUCOSE (test code = 2217) 113 MG/DL BUN (test code = 2208) 22 MG/DL CREATININE (test code = 2214) 0.9 MG/DL eGFR AMER. (test code 85 ML/MIN/1.73 = 34835) eGFR NON- AMER. (test 70 ML/MIN/1.73 code = 79317) CALCULATED BUN/CREAT (test 24 RATIO code = [...] code = 2219) 24 U/L COMPREHENSIVE METABOLIC [id number] 00:00:00 Test Item Value Reference Range Interpretation Comments GLUCOSE (test code = 2217) 113 MG/DL BUN (test code = 2208) 22 MG/DL CREATININE (test code = 2214) 0.9 MG/DL eGFR AMER. (test code 85 ML/MIN/1.73 = 46419) eGFR NON- AMER. (test 70 ML/MIN/1.73 code = 33638) CALCULATED BUN/CREAT (test 24 RATIO code = [...] code = 2219) 24 U/L CBC W/AUTO [id number] 00:00:00 Test Item Value Reference Range Interpretation [...] code = 1015) 270 K/UL CBC W/AUTO [id number] 00:00:00 Test Item Value Reference Range Interpretation [...] code = 1015) 270 K/UL CBC W/AUTO [id number] 00:00:00 Test Item Value Reference Range Interpretation [...] (test code = 1015) 270 K/UL HEMOGLOBIN [id number] 00:00:00 Test Item Value Reference Range Interpretation Comments HEMOGLOBIN A1c (test code = 63943) 7.3 % HEMOGLOBIN [id number] 00:00:00 Test Item Value Reference Range Interpretation Comments HEMOGLOBIN A1c (test code = 06480) 7.3 % HEMOGLOBIN [id number] 00:00:00 Test Item Value Reference Range Interpretation Comments HEMOGLOBIN A1c (test code = 56752) 7.3 % COMPREHENSIVE METABOLIC [id number] 00:00:00 Test Item Value Reference Range Interpretation Comments GLUCOSE (test code = 2217) 113 MG/DL BUN (test code = 2208) 22 MG/DL CREATININE (test code = 2214) 0.9 MG/DL eGFR AMER. (test code 85 ML/MIN/1.73 = 31365) eGFR NON- AMER. (test 70 ML/MIN/1.73 code = 67156) CALCULATED BUN/CREAT (test 24 RATIO code = [...] code = 2219) 24 U/L COMPREHENSIVE METABOLIC [id number] 00:00:00 Test Item Value Reference Range Interpretation Comments GLUCOSE (test code = 2217) 113 MG/DL BUN (test code = 2208) 22 MG/DL CREATININE (test code = 2214) 0.9 MG/DL eGFR AMER. (test code 85 ML/MIN/1.73 = 87057) eGFR NON- AMER. (test 70 ML/MIN/1.73 code = 61508) CALCULATED BUN/CREAT (test 24 RATIO code = 2235) SODIUM (test code = 2231) 138 MEQ/L POTASSIUM (test code = 2228) 4.6 MEQ/L CHLORIDE (test code = 2215) 102 MEQ/L CARBON DIOXIDE (test code = 22 MEQ/L 2206) CALCIUM (test code = 2209) 10.6 MG/DL PROTEIN, TOTAL (test code = 8.1 G/DL 9) ALBUMIN (test code = 2201) 4.7 G/DL CALCULATED GLOBULIN (test code 3.4 G/DL = 2240) CALCULATED A/G RATIO (test 1.4 RATIO code = 2234) BILIRUBIN, TOTAL (test code = 0.4 MG/DL 7) ALKALINE PHOSPHATASE (test 50 U/L code = 2204) SGOT (AST) (test code = 2218) 21 U/L SGPT (ALT) (test code = 2219) 24 U/L CBC W/AUTO [id number] 00:00:00 Test Item Value Reference Range Interpretation [...] code = 1015) 270 K/UL CBC W/AUTO [id number] 00:00:00 Test Item Value Reference Range Interpretation [...] code = 1015) 270 K/UL CBC W/AUTO [id number] 00:00:00 Test Item Value Reference Range Interpretation [...] (test code = 1015) 270 K/UL HEMOGLOBIN [id number] 00:00:00 Test Item Value Reference Range Interpretation Comments HEMOGLOBIN A1c (test code = 35391) 7.3 % HEMOGLOBIN [id number] 00:00:00 Test Item Value Reference Range Interpretation Comments HEMOGLOBIN A1c (test code = 84823) 7.3 % HEMOGLOBIN [id number] 00:00:00 Test Item Value Reference Range Interpretation Comments HEMOGLOBIN A1c (test code = 47725) 7.3 % COMPREHENSIVE METABOLIC [id number] 00:00:00 Test Item Value Reference Range Interpretation Comments GLUCOSE (test code = 2217) 113 MG/DL BUN (test code = 2208) 22 MG/DL CREATININE (test code = 2214) 0.9 MG/DL eGFR AMER. (test code 85 ML/MIN/1.73 = 79433) eGFR NON- AMER. (test 70 ML/MIN/1.73 code = 72519) CALCULATED BUN/CREAT (test 24 RATIO code = [...] code = 2219) 24 U/L COMPREHENSIVE METABOLIC [id number] 00:00:00 Test Item Value Reference Range Interpretation Comments GLUCOSE (test code = 2217) 113 MG/DL BUN (test code = 2208) 22 MG/DL CREATININE (test code = 2214) 0.9 MG/DL eGFR AMER. (test code 85 ML/MIN/1.73 = 71038) eGFR NON- AMER. (test 70 ML/MIN/1.73 code = 37760) CALCULATED BUN/CREAT (test 24 RATIO code = [...] code = 2219) 24 U/L CBC W/AUTO [id number] 00:00:00 Test Item Value Reference Range Interpretation [...] code = 1015) 270 K/UL CBC W/AUTO [id number] 00:00:00 Test Item Value Reference Range Interpretation [...] code = 1015) 270 K/UL CBC W/AUTO [id number] 00:00:00 Test Item Value Reference Range Interpretation [...] (test code = 1015) 270 K/UL HEMOGLOBIN [id number] 00:00:00 Test Item Value Reference Range Interpretation Comments HEMOGLOBIN A1c (test code = 68759) 7.3 % HEMOGLOBIN [id number] 00:00:00 Test Item Value Reference Range Interpretation Comments HEMOGLOBIN A1c (test code = 30987) 7.3 % HEMOGLOBIN [id number] 00:00:00 Test Item Value Reference Range Interpretation Comments HEMOGLOBIN A1c (test code = 55567) 7.3 % COMPREHENSIVE METABOLIC [id number] 00:00:00 Test Item Value Reference Range Interpretation Comments GLUCOSE (test code = 2217) 113 MG/DL BUN (test code = 2208) 22 MG/DL CREATININE (test code = 2214) 0.9 MG/DL eGFR AMER. (test code 85 ML/MIN/1.73 = 40819) eGFR NON- AMER. (test 70 ML/MIN/1.73 code = 24698) CALCULATED BUN/CREAT (test 24 RATIO code = [...] code = 2219) 24 U/L COMPREHENSIVE METABOLIC [id number] 00:00:00 Test Item Value Reference Range Interpretation Comments GLUCOSE (test code = 2217) 113 MG/DL BUN (test code = 2208) 22 MG/DL CREATININE (test code = 2214) 0.9 MG/DL eGFR AMER. (test code 85 ML/MIN/1.73 = 90240) eGFR NON- AMER. (test 70 ML/MIN/1.73 code = 28581) CALCULATED BUN/CREAT (test 24 RATIO code = [...] code = 2219) 24 U/L CBC W/AUTO [id number] 00:00:00 Test Item Value Reference Range Interpretation [...] code = 1015) 270 K/UL CBC W/AUTO [id number] 00:00:00 Test Item Value Reference Range Interpretation [...] code = 1015) 270 K/UL CBC W/AUTO [id number] 00:00:00 Test Item Value Reference Range Interpretation [...] (test code = 1015) 270 K/UL HEMOGLOBIN [id number] 00:00:00 Test Item Value Reference Range Interpretation Comments HEMOGLOBIN A1c (test code = 13422) 7.3 % HEMOGLOBIN [id number] 00:00:00 Test Item Value Reference Range Interpretation Comments HEMOGLOBIN A1c (test code = 67407) 7.3 % HEMOGLOBIN [id number] 00:00:00 Test Item Value Reference Range Interpretation Comments HEMOGLOBIN A1c (test code = 44258) 7.3 % COMPREHENSIVE METABOLIC [id number] 00:00:00 Test Item Value Reference Range Interpretation Comments GLUCOSE (test code = 2217) 113 MG/DL BUN (test code = 2208) 22 MG/DL CREATININE (test code = 2214) 0.9 MG/DL eGFR AMER. (test code 85 ML/MIN/1.73 = 85654) eGFR NON- AMER. (test 70 ML/MIN/1.73 code = 15853) CALCULATED BUN/CREAT (test 24 RATIO code = [...] code = 2219) 24 U/L CBC W/AUTO [id number] 00:00:00 Test Item Value Reference Range Interpretation [...] code = 1015) 270 K/UL CBC W/AUTO [id number] 00:00:00 Test Item Value Reference Range Interpretation [...] (test code = 1015) 270 K/UL HEMOGLOBIN [id number] 00:00:00 Test Item Value Reference Range Interpretation Comments HEMOGLOBIN A1c (test code = 45722) 7.3 % HEMOGLOBIN [id number] 00:00:00 Test Item Value Reference Range Interpretation Comments HEMOGLOBIN A1c (test code = 29001) 7.3 % COMPREHENSIVE METABOLIC [id number] 00:00:00 Test Item Value Reference Range Interpretation Comments GLUCOSE (test code = 2217) 113 MG/DL BUN (test code = 2208) 22 MG/DL CREATININE (test code = 2214) 0.9 MG/DL eGFR AMER. (test code 85 ML/MIN/1.73 = 69308) eGFR NON- AMER. (test 70 ML/MIN/1.73 code = 55779) CALCULATED BUN/CREAT (test 24 RATIO code = [...] code = 2219) 24 U/L COMPREHENSIVE METABOLIC [id number] 00:00:00 Test Item Value Reference Range Interpretation Comments GLUCOSE (test code = 2217) 113 MG/DL BUN (test code = 2208) 22 MG/DL CREATININE (test code = 2214) 0.9 MG/DL eGFR AMER. (test code 85 ML/MIN/1.73 = 59270) eGFR NON- AMER. (test 70 ML/MIN/1.73 code = 99644) CALCULATED BUN/CREAT (test 24 RATIO code = [...] A/G RATIO (test 1.4 RATIO code = 223) BILIRUBIN, TOTAL (test code = 0.4 MG/DL 2206) ALKALINE PHOSPHATASE (test 50 U/L code = 220) SGOT (AST) (test code = 2218) 21 U/L SGPT (ALT) (test code = 2219) 24 U/L CBC W/AUTO [id number] 00:00:00 Test Item Value Reference Range Interpretation [...] code = 1015) 270 K/UL CBC W/AUTO [id number] 00:00:00 Test Item Value Reference Range Interpretation [...] code = 1015) 270 K/UL CBC W/AUTO [id number] 00:00:00 Test Item Value Reference Range Interpretation [...] (test code = 1015) 270 K/UL HEMOGLOBIN [id number] 00:00:00 Test Item Value Reference Range Interpretation Comments HEMOGLOBIN A1c (test code = 57082) 7.3 % HEMOGLOBIN [id number] 00:00:00 Test Item Value Reference Range Interpretation Comments HEMOGLOBIN A1c (test code = 79775) 7.3 % HEMOGLOBIN [id number] 00:00:00 Test Item Value Reference Range Interpretation Comments HEMOGLOBIN A1c (test code = 60939) 7.3 % COMPREHENSIVE METABOLIC [id number] 00:00:00 Test Item Value Reference Range Interpretation Comments GLUCOSE (test code = 2217) 113 MG/DL BUN (test code = 2208) 22 MG/DL CREATININE (test code = 2214) 0.9 MG/DL eGFR AMER. (test code 85 ML/MIN/1.73 = 03165) eGFR NON- AMER. (test 70 ML/MIN/1.73 code = 80264) CALCULATED BUN/CREAT (test 24 RATIO code = [...] code = 2219) 24 U/L COMPREHENSIVE METABOLIC [id number] 00:00:00 Test Item Value Reference Range Interpretation Comments GLUCOSE (test code = 2217) 113 MG/DL BUN (test code = 2208) 22 MG/DL CREATININE (test code = 2214) 0.9 MG/DL eGFR AMER. (test code 85 ML/MIN/1.73 = 41419) eGFR NON- AMER. (test 70 ML/MIN/1.73 code = 65016) CALCULATED BUN/CREAT (test 24 RATIO code = [...] code = 2219) 24 U/L CBC W/AUTO [id number] 00:00:00 Test Item Value Reference Range Interpretation [...] code = 1015) 270 K/UL CBC W/AUTO [id number] 00:00:00 Test Item Value Reference Range Interpretation [...] code = 1015) 270 K/UL CBC W/AUTO [id number] 00:00:00 Test Item Value Reference Range Interpretation [...] (test code = 1015) 270 K/UL HEMOGLOBIN [id number] 00:00:00 Test Item Value Reference Range Interpretation Comments HEMOGLOBIN A1c (test code = 49178) 7.3 % HEMOGLOBIN [id number] 00:00:00 Test Item Value Reference Range Interpretation Comments HEMOGLOBIN A1c (test code = 69657) 7.3 % HEMOGLOBIN [id number] 00:00:00 Test Item Value Reference Range Interpretation Comments HEMOGLOBIN A1c (test code = 70731) 7.3 % COMPREHENSIVE METABOLIC [id number] 00:00:00 Test Item Value Reference Range Interpretation Comments GLUCOSE (test code = 2217) 113 MG/DL BUN (test code = 2208) 22 MG/DL CREATININE (test code = 2214) 0.9 MG/DL eGFR AMER. (test code 85 ML/MIN/1.73 = 49695) eGFR NON- AMER. (test 70 ML/MIN/1.73 code = 11376) CALCULATED BUN/CREAT (test 24 RATIO code = [...] code = 2219) 24 U/L COMPREHENSIVE METABOLIC [id number] 00:00:00 Test Item Value Reference Range Interpretation Comments GLUCOSE (test code = 2217) 113 MG/DL BUN (test code = 2208) 22 MG/DL CREATININE (test code = 2214) 0.9 MG/DL eGFR AMER. (test code 85 ML/MIN/1.73 = 87563) eGFR NON- AMER. (test 70 ML/MIN/1.73 code = 54001) CALCULATED BUN/CREAT (test 24 RATIO code = [...] code = 2219) 24 U/L CBC W/AUTO [id number] 00:00:00 Test Item Value Reference Range Interpretation [...] code = 1015) 270 K/UL CBC W/AUTO [id number] 00:00:00 Test Item Value Reference Range Interpretation [...] code = 1015) 270 K/UL CBC W/AUTO [id number] 00:00:00 Test Item Value Reference Range Interpretation [...] (test code = 1015) 270 K/UL HEMOGLOBIN [id number] 00:00:00 Test Item Value Reference Range Interpretation Comments HEMOGLOBIN A1c (test code = 68938) 7.3 % HEMOGLOBIN [id number] 00:00:00 Test Item Value Reference Range Interpretation Comments HEMOGLOBIN A1c (test code = 59396) 7.3 % HEMOGLOBIN [id number] 00:00:00 Test Item Value Reference Range Interpretation Comments HEMOGLOBIN A1c (test code = 21236) 7.3 %"
--- NOTE | 2022-08-11 10:02 | RAD REPORT ---
EXAM DESCRIPTION: CT - Abdomen Pelvis W Contrast - 08/11/2022 9:16 am CLINICAL HISTORY: abd pain COMPARISON: Abdomen Pelvis W Contrast dated 07/31/2022; Abdomen Pelvis W Contrast dated 04/10/2022 TECHNIQUE: Biphasic, helical CT imaging of the abdomen and pelvis was performed following 100 ml non -ionic IV contrast. Oral contrast: No. All CT scans are performed using dose optimization technique as appropriate and may include automated exposure control or mA/KV adjustment according to patient size. FINDINGS: No suspicious findings in the lung bases. Liver has a slightly nodular capsule contour. No focal liver lesions seen. Portal vein enhances rustam lly. Cholecystectomy clips are present. No abnormal biliary tree dilatation. No splenomegaly or focal splenic finding. No pancreatic mass or peripancreatic fluid or stranding. There are no pancreatitis findings on this s tudy. Symmetric renal function is seen with no hydronephrosis or suspicious renal mass. No pyelonephritis o r acute parenchymal process. No bladder abnormalities. No adrenal abnormalities. Uterus and ovaries s how no suspicious findings. No dilated bowel loops or bowel wall thickening. Appendix is normal. No free air, free fluid or infla mmatory stranding. No hernia, mass or bulky lymphadenopathy. There is asymmetric thickening in the r ectus abdominis musculature. This is possibly from a prior abdominal plasty. The abdominal wall findi ngs are unchanged from the April 2022 study. No suspicious bony findings. IMPRESSION: Contrast enhanced CT abdomen and pelvis showing no significant or suspicious finding. Above detailed findings are not significantly different from comparison imaging.
--- NOTE | 2022-08-11 10:43 | EDPHYS ---
Physician Documentation [facility] Name: Valentina Franco Age: 42 yrs Sex: Female : 1980 Arrival Date: 08/11/2022 Time: 07:51 Bed 2 Private MD: ED Physician Doron Mueller HPI: 08/11 08:17 This 42 yrs old Female presents to ER via Unassigned with complaints of kb Abdominal Pain, Abdominal Swelling, Nausea. 08:17 The patient presents with abdominal pain in the upper abdomen. Onset: The kb symptoms/episode began/occurred 2 week(s) ago. The symptoms do not radiate. Associated signs and symptoms: Pertinent positives: nausea and vomiting. The symptoms are described as constant. Modifying factors: The symptoms are alleviated by nothing, the symptoms are aggravated by breathing deeply, movement, pressure. Severity of pain: At its worst the pain was moderate in the emergency department the pain is unchanged. The patient has not experienced similar symptoms in the past. The patient has been recently seen at the [facility] Emergency Department, last week. 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 - Social history:: Smoking status: Patient denies any tobacco usage or history of. ROS: 08:16 Constitutional: Negative for fever, chills, and weight loss. kb 08:16 Abdomen/GI: Positive for abdominal pain, nausea and vomiting. 08:16 All other systems are negative. Exam: 08:16 Constitutional: This is a well developed, well nourished patient who is awake, alert, kb and in no acute distress. Head/Face: Normocephalic, atraumatic. ENT: Moist Mucous membranes Cardiovascular: Regular rate and rhythm with a normal S1 and S2. No gallops, murmurs, or rubs. No pulse deficits. Respiratory: Respirations even and unlabored. No increased work of breathing. Talking in full sentences Skin: Warm, dry with normal turgor. Normal color. MS/ Extremity: Pulses equal, no cyanosis. Neurovascular intact. Full, normal range of motion. Neuro: Awake and alert, GCS 15, oriented to person, place, time, and situation. Moves all extremities. Normal gait. 08:16 Abdomen/GI: Inspection: abdomen appears normal, Bowel sounds: normal, Palpation: soft, in all quadrants, mild abdominal tenderness, in the left upper quadrant, right lower quadrant and left lower quadrant, moderate abdominal tenderness, in the right upper quadrant. Vital Signs: 08:18 BP 125 / 72; Pulse 103; Resp 16; Temp 97.7(O); Pulse Ox 100% on R/A; Weight 102.97 kg; ss Height 5 ft. 4 in. (162.56 cm); Pain 9/10; 08:50 BP 101 / 62; Pulse 79; Resp 18; Pulse Ox 98% on R/A; ph 10:03 BP 111 / 75; Pulse 80; Resp 18; Pulse Ox 98% on R/A; ph 11:02 BP 124 / 71; Pulse 83; Resp 17; Pulse Ox 98% ; ll1 08:18 Body Mass Index 38.96 (102.97 kg, 162.56 cm) ss MDM: 07:56 Patient medically screened. kb 08:15 Differential diagnosis: bowel obstruction, gastritis, non-specific abd pain, kb pancreatitis. Data reviewed: vital signs, nurses notes. 10:11 ED course: This is a 42-year-old female with significant past history of diabetes and kb pancreatitis. Patient presents to ER for upper abdominal pain that started 2 weeks ago with nausea and vomiting. States she was seen for this last week and sent home. Reports she comes back today because symptoms are not any better and she is unable to tolerate oral intake. Physical exam positive for upper abdominal tenderness mainly in the right upper quadrant. Differential diagnosis includes nonspecific abdominal pain, pancreatitis, gastritis. Will obtain urine, serum labs and CT scan.. 10:16 Care significantly affected by the following chronic conditions: Diabetes, kb Pancreatitis. Counseling: I had a detailed discussion with the patient and/or guardian regarding: the historical points, exam findings, and any diagnostic results supporting the discharge/admit diagnosis, lab results, radiology results, the need for outpatient follow up, a family practitioner, a liquified natural gas specialist, to return to the emergency department if symptoms worsen or persist or if there are any questions or concerns that arise at home. Special discussion: Based on the patient's Hx, exam, and Dx evaluation, there is no indication for emergent surgery or inpatient Tx. It is understood by the patient/guardian that if the Sx's persist or worsen they need to return immediately for re-evaluation. ED course: Labs and CT without significant findings. Symptomatic treatment discussed as well as follow-up with GI.. 08/11 08:12 Order name: CBC with Diff; Complete Time: 08:40 kb 08/11 08:12 Order name: CMP; Complete Time: 09:07 kb 08/11 08:12 Order name: Lipase; Complete Time: 09:07 kb 08/11 08:12 Order name: Urine Microscopic Only; Complete Time: 08:40 kb 08/11 08:12 Order name: Acetone, Serum; Complete Time: 09:07 kb 08/11 08:23 Order name: Urine Dipstick-Ancillary; Complete Time: 08:24 EDMS 08/11 08:12 Order name: CT Abd/Pelvis - IV Contrast Only; Complete Time: 10:09 kb 08/11 08:12 Order name: IV Saline Lock; Complete Time: 08:49 kb 08/11 08:12 Order name: Labs collected and sent; Complete Time: 08:49 kb 08/11 08:25 Order name: Urine --Ancillary (enter results); Complete Time: 08:40 bd 08/11 08:12 Order name: Urine Dipstick-Ancillary (obtain specimen); Complete Time: 08:25 kb 08/11 08:12 Order name: Urine Test (obtain specimen); Complete Time: 08:25 kb 08/11 10:18 Order name: PO challenge; Complete Time: 10:29 kb Administered Medications: 08:49 Drug: NS 0.9% 1000 ml Route: IV; Rate: 1 bolus; Site: left antecubital; ph 11:03 Follow up: Response: No adverse reaction; IV Status: Completed infusion; IV Intake: ll1 1000ml 08:49 Drug: Pepcid (famotidine) 20 mg Route: IVP; Site: left antecubital; ph 11:03 Follow up: Response: No adverse reaction ll1 08:49 Drug: TORadol - (ketorolac) 15 mg Route: IVP; Site: left antecubital; ph 11:02 Follow up: Response: No adverse reaction; Pain is decreased ll1 08:49 Drug: Zofran (Ondansetron) 4 mg Route: IVP; Site: left antecubital; ph 11:02 Follow up: Response: No adverse reaction ll1 Disposition: 12:59 Co-signature as Attending Physician, Doron Mueller MD I agree with the assessment and kdr plan of care. Disposition Summary: 08/11/22 10:43 Discharge Ordered Location: Home kb Condition: Stable kb Diagnosis - Upper abdominal pain, unspecified kb Followup: kb - With: Emergency Department - When: As needed - Reason: Worsening of condition Followup: kb - With: Private Physician - When: 2 - 3 days - Reason: Recheck today's complaints, Continuance of care, Re-evaluation by your physician Discharge Instructions: - Discharge Summary Sheet kb - Abdominal Pain, Adult, Nmri-ro-Kcyi kb Forms: - Medication Reconciliation Form kb - Thank You Letter kb - Antibiotic Education kb - Prescription Opioid Use kb - Work release form ll1 Prescriptions: - dicyclomine 20 mg Oral Tablet - take 1 tablet by ORAL route 4 times per day As needed; 20 tablet; Refills: 0, kb Product Selection Permitted - ondansetron 4 mg Oral - take 1 tablet by SUBLINGUAL route every 8 hours As needed; 15 tablet; Refills: kb 0, Product Selection Permitted Signatures: Dispatcher [employer] Milady Iglesias, CAS-Fay ECHAVARRIAP-Doron Sinclair MD MD [facility] Elvie Henderson RN RN Mary Alice Padron RN RN Topher Astorga RN 1
--- NOTE | 2022-08-11 10:43 | ER ---
Nurse's Notes [facility] Name: Valentina Franco Age: 42 yrs Sex: Female : 1980 Arrival Date: 08/11/2022 Time: 07:51 Bed 2 Private MD: Diagnosis: Upper abdominal pain, unspecified Presentation: 08/11 08:18 Chief complaint: Patient states: abd pain, N/V that began two weeks ago. HX of ss pancreatitis. Pt reports she was seen in ER 2 weeks ago, but she is still having the same symptoms and now having bloating. Coronavirus screen: Client denies travel out of the [place] in the last 14 days. Ebola Screen: Patient denies exposure to infectious person. Patient denies travel to an Ebola-affected area in the 21 days before illness onset. Initial Sepsis Screen: Does the patient meet any 2 criteria? No. Patient's initial sepsis screen is negative. Does the patient have a suspected source of infection? No. Patient's initial sepsis screen is negative. Risk Assessment: Do you want to hurt yourself or someone else? Patient reports no desire to harm self or others. 08:18 Method Of Arrival: Ambulatory ss 08:18 Acuity: CYNTHIA 3 ss 08:36 Onset of symptoms was August 11, 2022. ph [employer]: 11:04 LMP N/A - control method, UPT negative ll1 Historical: - Allergies: 08:21 No Known Allergies; ss - PMHx: 08:21 Anxiety; High Cholesterol; Pancreatitis; Diabetes - NIDDM; UTI; ss - PSHx: 08:21 section; Cholecystectomy; foot surgery; ss - Immunization history:: Client reports receiving the 2nd dose of the Covid vaccine. - Social history:: Smoking status: Patient denies any tobacco usage or history of. Screenin:25 [facility] ED Fall Risk Assessment (Adult) History of falling in the last 3 months, ph including since admission No falls in past 3 months (0 pts) Confusion or Disorientation No (0 pts) Intoxicated or Sedated No (0 pts) Impaired Gait No (0 pts) Mobility Assist Device Used No (0 pt) Altered Elimination No (0 pt) Score/Fall Risk Level 0 - 2 = Low Risk Oriented to surroundings, Maintained a safe environment, Hourly rounding (assess needs \T\ fall precautionary measures) done. Abuse screen: Denies threats or abuse. Denies injuries from another. Nutritional screening: No deficits noted. Tuberculosis screening: No symptoms or risk factors identified. Assessment: 08:25 General: Appears in no apparent distress. Behavior is calm, cooperative, appropriate ph for age. Pain: Complains of pain in mid line of abdomen. Neuro: Level of Consciousness is awake, alert, obeys commands, Oriented to person, place, time, situation. Cardiovascular: Capillary refill < 3 seconds in bilateral fingers Patient's skin is warm and dry. Respiratory: Airway is patent Respiratory effort is even, unlabored, Respiratory pattern is regular, symmetrical. GI: Abdomen is non-distended, obese, Reports lower abdominal pain, upper abdominal pain, nausea, vomiting. Derm: Skin is healthy with good turgor, Skin is pink, warm \T\ dry. Musculoskeletal: Circulation, motion, and sensation intact. Range of motion: intact in all extremities. 10:30 Reassessment: No changes from previously documented assessment. ice chips and water ll1 given for PO challenge. 11:01 Reassessment: No changes from previously documented assessment. Patient and/or family ll1 updated on plan of care and expected duration. Pain level reassessed. Patient is alert, oriented x 3, equal unlabored respirations, skin warm/dry/pink. Patient states feeling better. 11:03 GI: Bowel sounds present X 4 quads. Abd is soft and non tender X 4 quads. ll1 Vital Signs: 08:18 BP 125 / 72; Pulse 103; Resp 16; Temp 97.7(O); Pulse Ox 100% on R/A; Weight 102.97 kg; ss Height 5 ft. 4 in. (162.56 cm); Pain 9/10; 08:50 BP 101 / 62; Pulse 79; Resp 18; Pulse Ox 98% on R/A; ph 10:03 BP 111 / 75; Pulse 80; Resp 18; Pulse Ox 98% on R/A; ph 11:02 BP 124 / 71; Pulse 83; Resp 17; Pulse Ox 98% ; ll1 08:18 Body Mass Index 38.96 (102.97 kg, 162.56 cm) ED Course: 07:51 Patient arrived in ED. as 07:56 Milady Turpin FNP-C is PHCP. kb 07:56 Doron Mueller MD is Attending Physician. kb 08:13 Mary Alice Padron, PETE is Primary Nurse. ph 08:20 Initial lab(s) drawn, by me, sent to lab. Inserted saline lock: 22 gauge in left ph antecubital area, using aseptic technique. Blood collected. 08:21 Triage completed. ss 08:21 Arm band placed on right wrist. ss 08:25 Urine Microscopic Only Sent. ll1 08:30 Patient has correct armband on for positive identification. Bed in low position. Call light in reach. Side rails up X 1. Pulse ox on. NIBP on. 09:18 CT Abd/Pelvis - IV Contrast Only In Process Unspecified. EDMS 11:03 No provider procedures requiring assistance completed. IV discontinued, intact, ll1 bleeding controlled, No redness/swelling at site. Pressure dressing applied. Administered Medications: 08:49 Drug: NS 0.9% 1000 ml Route: IV; Rate: 1 bolus; Site: left antecubital; ph 11:03 Follow up: Response: No adverse reaction; IV Status: Completed infusion; IV Intake: ll1 1000ml 08:49 Drug: Pepcid (famotidine) 20 mg Route: IVP; Site: left antecubital; ph 11:03 Follow up: Response: No adverse reaction ll1 08:49 Drug: TORadol - (ketorolac) 15 mg Route: IVP; Site: left antecubital; ph 11:02 Follow up: Response: No adverse reaction; Pain is decreased ll1 08:49 Drug: Zofran (Ondansetron) 4 mg Route: IVP; Site: left antecubital; ph 11:02 Follow up: Response: No adverse reaction ll1 Medication: 08:35 VIS not applicable for this client. ph Intake: 11:03 IV: 1000ml; Total: 1000ml. ll1 Outcome: 10:43 Discharge ordered by . kb 11:03 Discharged to home ambulatory. ll1 11:03 Condition: stable 11:03 Discharge instructions given to patient, Instructed on discharge instructions, follow up and referral plans. medication usage, Demonstrated understanding of instructions, follow-up care, medications, Prescriptions given X 2. 11:04 Patient left the ED. ll1 Signatures: Dispatcher [employer] EDMS Milady Turpin, DUCT MAKER-C DUCT MAKER-Ledy Haley Shelby, RN RN ss Mary Alice Padron, RN RN ph Topher Astorga, RN RN ll1
[2022-08-11 11:08] VITALS: TEMP 97.7
[2022-08-11 11:09] VITALS: O2SAT 98
[2022-08-11 11:11] VITALS: BP 124/71
== END 2022-08-11 11:04 | disposition home or self-care (01) ==
LOC: ER 07:48
DX: R10.11 Right upper quadrant pain (principal); R11.2 Nausea with vomiting, unspecified
CPT/HCPCS: 85025; 36415; 82010; 81025; 83690; 80053; 74177; Q9967; J7030; J2405; 81003; 81015

== ENCOUNTER 2022-11-26 07:25 | Inpatient (IN) | payer OTHER ==
[2022-11-26] MEDS ORDERED: ONDANSETRON 4 MG/2 ML VIAL ONE (07:46)
[2022-11-26] MEDS ORDERED: MORPHINE 4 MG/ML SYR ONE (07:46)
[2022-11-26 08:09] LABS: Absolute Lymphocytes (CBC) 2.7 K/uL (0.7-4.9); Lymphocytes % 41.2 % (15.3-44.8); MCV 83.9 fL (80-100); MPV 7.4 fL (7.6-11.3); RBC Red Blood Cell Count 4.53 M/uL (3.86-4.86)
[2022-11-26 08:09] LABS: Specific Gravity 1.028 (1.005-1.030)
[2022-11-26] MEDS ORDERED: FAMOTIDINE 20 MG/2 ML VIAL IV ONE (08:09)
[2022-11-26] MEDS ORDERED: NA CHLORIDE 0.9% 1,000 ML ONE (08:09)
[2022-11-26 08:10] LABS: Specific Gravity 1.028 (1.005-1.030); Urine Bacteria <20 /HPF (<20); Urine Bilirubin NEGATIVE (Negative); Urine Blood Negative (Negative); Urine Clarity Clear (Clear); Urine Color Colorless (Yellow); Urine Glucose 4+ (Over) (Negative); Urine Mucus Slight /HPF (None Seen); Urine Protein TRACE (Negative); Urine RBC <5 /HPF (None Seen); Urine Urobilinogen Normal (Normal)
[2022-11-26] MEDS ORDERED: CEFTRIAXONE 1000 MG/VIAL ONE (08:11)
[2022-11-26 08:26] LABS: Albumin 4.1 g/dL (3.4-5.0); Bilirubin Total 0.3 mg/dL (0.2-1.0); Protein, Total 8.4 g/dL (6.4-8.2)
--- NOTE | 2022-11-26 08:36 | EDPHYS ---
Physician Documentation [facility] Name: Valentina Franco Age: 42 yrs Sex: Female : 1980 Arrival Date: 11/26/2022 Time: 07:25 Bed 18 Private MD: PHYLICIA Physician Johan Giron HPI: 11/26 07:57 This 42 yrs old Female presents to ER via Unassigned with complaints of young Urinary Problem. 07:57 The patient presents with abdominal pain in the upper abdomen, in the left upper young quadrant, in the left lower quadrant, abdominal distention in the upper abdomen, in the lower abdomen. Onset: The symptoms/episode began/occurred 1 day(s) ago. The patient complains of pain in the left low back and left mid back. The pain radiates. Modifying factors: The symptoms are alleviated by nothing. the symptoms are aggravated by nothing. The patient presents with pain that is acute, with no known mechanism of injury. The symptoms are located in the left low back and left mid back. Associated signs and symptoms: The patient has no apparent associated signs or symptoms. Severity of symptoms: At their worst the symptoms were moderate, in the emergency department the symptoms are unchanged. Historical: - Allergies: 09:42 No Known Allergies; ld1 - PMHx: 07:33 Anxiety; Pancreatitis; High Cholesterol; diabetes mellitus; Depression; UTI; ld1 07:33 Hypertensive disorder; ld1 - PSHx: 07:33 foot surgery; section; Cholecystectomy; Heart ablation; Tonsillectomy; ld1 - Immunization history:: Adult Immunizations up to date, Client reports receiving the 2nd dose of the Covid vaccine. - Social history:: Smoking status: Patient denies any tobacco usage or history of. Patient/guardian denies using alcohol. ROS: 08:03 Constitutional: Negative for fever, chills, and weight loss, Eyes: Negative for injury, young pain, redness, and discharge, ENT: Negative for injury, pain, and discharge, Neck: Negative for injury, pain, and swelling, Cardiovascular: Negative for chest pain, palpitations, and edema, Respiratory: Negative for shortness of breath, cough, wheezing, and pleuritic chest pain, Back: Negative for injury and pain, MS/Extremity: Negative for injury and deformity, Skin: Negative for injury, rash, and discoloration, Neuro: Negative for headache, weakness, numbness, tingling, and seizure, Psych: Negative for depression, anxiety, suicide ideation, homicidal ideation, and hallucinations, Allergy/Immunology: Negative for hives, rash, and allergies, Endocrine: Negative for neck swelling, polydipsia, polyuria, polyphagia, and marked weight changes, Hematologic/Lymphatic: Negative for swollen nodes, abnormal bleeding, and unusual bruising. 08:03 Abdomen/GI: Positive for abdominal pain, abdominal cramps. Exam: 08:03 Constitutional: This is a well developed, well nourished patient who is awake, alert, young and in no acute distress. Head/Face: Normocephalic, atraumatic. Eyes: Pupils equal round and reactive to light, extra-ocular motions intact. Lids and lashes normal. Conjunctiva and sclera are non-icteric and not injected. Cornea within normal limits. Periorbital areas with no swelling, redness, or edema. ENT: Nares patent. No nasal discharge, no septal abnormalities noted. Tympanic membranes are normal and external auditory canals are clear. Oropharynx with no redness, swelling, or masses, exudates, or evidence of obstruction, uvula midline. Mucous membranes moist. Neck: Trachea midline, no thyromegaly or masses palpated, and no cervical lymphadenopathy. Supple, full range of motion without nuchal rigidity, or vertebral point tenderness. No Meningismus. Chest/axilla: Normal chest wall appearance and motion. Nontender with no deformity. No lesions are appreciated. Cardiovascular: Regular rate and rhythm with a normal S1 and S2. No gallops, murmurs, or rubs. Normal PMI, no JVD. No pulse deficits. Respiratory: Lungs have equal breath sounds bilaterally, clear to auscultation and percussion. No rales, rhonchi or wheezes noted. No increased work of breathing, no retractions or nasal flaring. Pelvic Exam: Normal external genitalia. Speculum exam with closed cervical os, no discharge or bleeding noted. Bimanual exam with normal adnexa, no adnexal or cervical motion tenderness. Normal uterus. Female : Normal external genitalia. Skin: Warm, dry with normal turgor. Normal color with no rashes, no lesions, and no evidence of cellulitis. MS/ Extremity: Pulses equal, no cyanosis. Neurovascular intact. Full, normal range of motion. Neuro: Awake and alert, GCS 15, oriented to person, place, time, and situation. Cranial nerves II-XII grossly intact. Motor strength 5/5 in all extremities. Sensory grossly intact. Cerebellar exam normal. Normal gait. Psych: Awake, alert, with orientation to person, place and time. Behavior, mood, and affect are within normal limits. 08:03 Abdomen/GI: Inspection: distension, Bowel sounds: normal, Palpation: mild abdominal tenderness, moderate abdominal tenderness, in the posterior aspect of left lateral abdomen, anterior aspect of left lateral abdomen, left upper quadrant and left lower quadrant, Liver: no appreciated palpable abnormalities, Hernia: not appreciated. 09:01 ECG was reviewed by the Attending Physician. [facility] Vital Signs: 07:49 BP 136 / 75; Pulse 77; Resp 18; Temp 98.1(O); Pulse Ox 97% on R/A; Weight 104.33 kg; ld1 Height 5 ft. 4 in. ; Pain 9/10; 09:43 BP 100 / 56; Pulse 69; Resp 18; Pulse Ox 100% on R/A; ld1 11:55 BP 100 / 65; Pulse 69; Resp 16; Pulse Ox 93% on R/A; ld1 07:49 Body Mass Index 39.48 (104.33 kg, 162.56 cm) ld1 07:49 Pain Scale: Adult ld1 MDM: 07:32 Patient medically screened. [facility] 08:05 Differential diagnosis: bowel obstruction, diverticulitis, gastritis. Data reviewed: [facility] vital signs, nurses notes, lab test result(s), radiologic studies, CT scan. Consideration of Admission/Observation Escalation of care including admission/observation considered. I considered the following discharge prescriptions or medication management in the emergency department Medications were administered in the Emergency Department. See MAR. Independent interpretation of the following test(s) in the Emergency Department CT Scan: My interpretation is ct abd pelvis. Test considered but Not performed: Ultrasound no abd usg. Care significantly affected by the following chronic conditions: Diabetes, Hypertension, Obesity, Liver Disease, hyperchlesterol, triglycerides. Counseling: I had a detailed discussion with the patient and/or guardian regarding: the historical points, exam findings, and any diagnostic results supporting the discharge/admit diagnosis, lab results, radiology results. 11/26 07:39 Order name: CBC with Diff; Complete Time: 08:29 [facility] 11/26 07:39 Order name: CMP; Complete Time: 08:29 [facility] 11/26 07:39 Order name: Lipase; Complete Time: 08:29 [facility] 11/26 07:39 Order name: Test, Urine; Complete Time: 08:29 [facility] 11/26 07:39 Order name: Urinalysis w/ reflexes; Complete Time: 08:29 [facility] 11/26 08:08 Order name: Lipid Profile; Complete Time: 11:05 [facility] 11/26 08:30 Order name: Troponin High Sensitivity; Complete Time: 11:05 [facility] 11/26 08:30 Order name: BNP; Complete Time: 11:05 [facility] 11/26 08:44 Order name: LDL, Direct; Complete Time: 11:05 EDMS 11/26 11:27 Order name: CBC with Automated Diff EDMS 11/26 11:27 Order name: CBC with Automated Diff EDMS 11/26 11:27 Order name: Comprehensive Metabolic Panel EDMS 11/26 11:27 Order name: Comprehensive Metabolic Panel EDMS 11/26 11:27 Order name: Lipase EDMS 11/26 11:27 Order name: Lipase EDMS 11/26 11:27 Order name: Lipid Profile EDMS 11/26 11:27 Order name: Lipid Profile EDMS 11/26 11:27 Order name: Protime (+INR) EDMS 11/26 11:27 Order name: Protime (+INR) EDMS 11/26 11:27 Order name: PTT, Activated Partial Thromb EDMS 11/26 11:27 Order name: PTT, Activated Partial Thromb EDMS 11/26 07:39 Order name: CT Stone Protocol; Complete Time: 11:05 [facility] 11/26 08:30 Order name: Chest Single View XRAY; Complete Time: 11:05 [facility] 11/26 08:30 Order name: EKG; Complete Time: 08:31 [facility] 11/26 11:27 Order name: Clear Liquid EDMN 11/26 07:39 Order name: IV Saline Lock; Complete Time: 07:49 [facility] 11/26 07:39 Order name: Labs collected and sent; Complete Time: 07:49 [facility] 11/26 08:30 Order name: EKG - Nurse/Tech; Complete Time: 08:50 [facility] EC:01 Rate is 74 beats/min. Rhythm is regular. QRS [place] is Normal. OR interval is normal. QRS young interval is normal. QT interval is normal. No Q waves. T waves are Normal. No ST changes noted. Clinical impression: NSR w/ Non-specific ST/T Changes and No evidence of ischemia. Interpreted by me. Reviewed by me. Administered Medications: 07:49 Drug: Ondansetron IVP 4 mg Route: IVP; Site: right antecubital; ld1 07:49 Drug: morphine IVP or IV 4 mg Route: IVP; Infused Over: 4 mins; Site: right antecubital;ld1 08:17 Drug: NS 0.9% IV 1000 ml Route: IV; Rate: 1 bolus; Site: right antecubital; ld1 08:17 Drug: Famotidine IVP 20 mg Route: IVP; Site: right antecubital; ld1 08:17 Drug: Rocephin IV 1 grams Route: IV; Rate: per protocol; Site: right antecubital; ld1 09:11 Drug: Insulin Regular Human IVP 10 units {Co-Signature: [email or web address] (Greta Luis RN).} ld1 Route: IVP; Site: right antecubital; 09:16 Drug: NS 0.9% IV 1000 ml Route: IV; Rate: 1 bolus; Site: right antecubital; ld1 11:08 Drug: NS 0.9% IV 1000 ml Route: IV; Rate: 125 ml/hr; Site: right antecubital; ld1 11:08 Drug: NS 0.9% IV 1000 ml Route: IV; Rate: 1 bolus; Site: right antecubital; ld1 11:08 Drug: Insulin Glargine Sub-Q 40 units Route: Sub-Q; Site: abdomen; ld1 11:17 Drug: HYDROmorphone IVP 1 mg Route: IVP; Site: right antecubital; ld1 11:17 Drug: Promethazine IVP 25 mg Route: IVP; Site: right antecubital; ld1 Disposition Summary: 11/26/22 08:35 Hospitalization Ordered Hospitalization Status: Inpatient Admission young Provider: Jeff Maldonado cha Location: Telemetry/MedSurg (Inpatient) young Condition: Fair young Problem: new young Symptoms: have improved young Bed/Room Type: Standard young Room Assignment: 407(11/26/22 12:07) eb Diagnosis - Abdominal pain, Generalized young - Biliary acute pancreatitis young - Hyperlipidemia, unspecified - Hypertriglyceride young - Morbid (severe) obesity due to excess calories young - Vomiting young - Type 2 diabetes mellitus with hyperglycemia young Forms: - Medication Reconciliation Form young - SBAR form young Signatures: Dispatcher [employer] Johan Espinal MD MD cha Botello, Elizabeth eb Sims, Lauren, RN RN ld1 Greta Luis RN [id number] Corrections: (The following items were deleted from the chart) 09:38 09:38 Allergies: No Known Allergies; ld1 ld1 12:07 08:35 young eb
--- NOTE | 2022-11-26 08:36 | ER ---
Nurse's Notes [facility] Name: Valentina Franco Age: 42 yrs Sex: Female : 1980 Arrival Date: 11/26/2022 Time: 07:25 Bed 18 Private MD: Diagnosis: Abdominal pain, Generalized;Biliary acute pancreatitis;Hyperlipidemia, unspecified-Hypertriglyceride;Morbid (severe) obesity due to excess calories;Vomiting;Type 2 diabetes mellitus with hyperglycemia Presentation: 11/26 09:41 Chief complaint: Patient states: [place] back pain, abdominal pain, N/V X 2 days. ld1 Coronavirus screen: At this time, the client does not indicate any symptoms associated with coronavirus-19. Ebola Screen: No symptoms or risks identified at this time. Initial Sepsis Screen: Does the patient meet any 2 criteria? No. Patient's initial sepsis screen is negative. Does the patient have a suspected source of infection? No. Patient's initial sepsis screen is negative. Risk Assessment: Do you want to hurt yourself or someone else? Patient reports no desire to harm self or others. Onset of symptoms was November 26, 2022. 09:41 Method Of Arrival: Ambulatory ld1 09:41 Acuity: CYNTHIA 3 ld1 Triage Assessment: 08:30 General: Appears in no apparent distress. uncomfortable, Behavior is calm, cooperative, ld1 appropriate for age. Pain: Complains of pain in left lower quadrant and left upper quadrant and anterior aspect of left lateral abdomen and posterior aspect of left lateral abdomen and left mid back and left low back Pain does not radiate. Pain currently is 9 out of 10 on a pain scale. Quality of pain is described as throbbing. 08:30 EENT: No signs and/or symptoms were reported regarding the EENT system. Neuro: Level of ld1 Consciousness is awake, alert, obeys commands, Oriented to person, place, time, situation. Cardiovascular: Capillary refill < 3 seconds Patient's skin is warm and dry. Respiratory: Airway is patent Respiratory effort is even, unlabored. GI: Abdomen is flat, non-distended. : No signs and/or symptoms were reported regarding the genitourinary system. Derm: No signs and/or symptoms reported regarding the dermatologic system. Musculoskeletal: No signs and/or symptoms reported regarding the musculoskeletal system. Historical: - Allergies: 09:42 No Known Allergies; ld1 - PMHx: 07:33 Anxiety; Pancreatitis; High Cholesterol; diabetes mellitus; Depression; UTI; ld1 07:33 Hypertensive disorder; ld1 - PSHx: 07:33 foot surgery; section; Cholecystectomy; Heart ablation; Tonsillectomy; ld1 - Immunization history:: Adult Immunizations up to date, Client reports receiving the 2nd dose of the Covid vaccine. - Social history:: Smoking status: Patient denies any tobacco usage or history of. Patient/guardian denies using alcohol. Screenin:49 [facility] ED Fall Risk Assessment (Adult) History of falling in the last 3 months, ld1 including since admission No falls in past 3 months (0 pts). Abuse screen: Denies threats or abuse. Denies injuries from another. Nutritional screening: No deficits noted. Tuberculosis screening: No symptoms or risk factors identified. Assessment: 07:49 General: Appears in no apparent distress. comfortable, Behavior is calm, cooperative, ld1 appropriate for age. Pain: Complains of pain in low back area and abdomen Pain does not radiate. Pain currently is 9 out of 10 on a pain scale. Quality of pain is described as sharp, shooting, throbbing. Neuro: Level of Consciousness is awake, alert, obeys commands, Oriented to person, place, time, situation. Cardiovascular: Capillary refill < 3 seconds Patient's skin is warm and dry. Respiratory: Airway is patent Respiratory effort is even, unlabored. GI: Abdomen is round non-distended, Reports lower abdominal pain, upper abdominal pain, nausea, vomiting. : Reports burning with urination. EENT: No signs and/or symptoms were reported regarding the EENT system. Derm: No signs and/or symptoms reported regarding the dermatologic system. Musculoskeletal: No signs and/or symptoms reported regarding the musculoskeletal system. 09:43 Reassessment: Patient appears in no apparent distress at this time. No changes from ld1 previously documented assessment. Patient and/or family updated on plan of care and expected duration. Pain level reassessed. Patient is alert, oriented x 3, equal unlabored respirations, skin warm/dry/pink. 13:14 Reassessment: BGL 144. ld1 Vital Signs: 07:49 BP 136 / 75; Pulse 77; Resp 18; Temp 98.1(O); Pulse Ox 97% on R/A; Weight 104.33 kg; ld1 Height 5 ft. 4 in. ; Pain 9/10; 09:43 BP 100 / 56; Pulse 69; Resp 18; Pulse Ox 100% on R/A; ld1 11:55 BP 100 / 65; Pulse 69; Resp 16; Pulse Ox 93% on R/A; ld1 07:49 Body Mass Index 39.48 (104.33 kg, 162.56 cm) ld1 07:49 Pain Scale: Adult ld1 ED Course: 07:26 Patient arrived in ED. rg4 07:30 Janell Mccabe, PETE is Primary Nurse. ld1 07:32 Johan Giron MD is Attending Physician. young 07:40 Radiology exam delayed due to test not completed at this time. sj 07:49 Urinalysis w/ reflexes Sent. ld1 07:49 No provider procedures requiring assistance completed. Inserted saline lock: 20 gauge ld1 in right antecubital area, using aseptic technique. 07:49 Patient has correct armband on for positive identification. Placed in gown. Bed in low ld1 position. Call light in reach. Side rails up X2. monitor car operator on. Pulse ox on. NIBP on. Door closed. Noise minimized. Warm blanket given. 08:26 CT Stone Protocol In Process Unspecified. EDMS 08:30 Arm band placed on right wrist. ld1 08:33 Jeff Maldonado MD is Hospitalizing Provider. young 08:50 BNP Sent. mm9 08:58 Chest Single View XRAY In Process Unspecified. EDMS 09:42 Triage completed. ld1 13:17 Patient admitted, IV remains in place. ld1 Administered Medications: 07:49 Drug: Ondansetron IVP 4 mg Route: IVP; Site: right antecubital; ld1 07:49 Drug: morphine IVP or IV 4 mg Route: IVP; Infused Over: 4 mins; Site: right antecubital;ld1 08:17 Drug: NS 0.9% IV 1000 ml Route: IV; Rate: 1 bolus; Site: right antecubital; ld1 08:17 Drug: Famotidine IVP 20 mg Route: IVP; Site: right antecubital; ld1 08:17 Drug: Rocephin IV 1 grams Route: IV; Rate: per protocol; Site: right antecubital; ld1 09:11 Drug: Insulin Regular Human IVP 10 units {Co-Signature: [email or web address] (Greta Luis RN).} ld1 Route: IVP; Site: right antecubital; 09:16 Drug: NS 0.9% IV 1000 ml Route: IV; Rate: 1 bolus; Site: right antecubital; ld1 11:08 Drug: NS 0.9% IV 1000 ml Route: IV; Rate: 125 ml/hr; Site: right antecubital; ld1 11:08 Drug: NS 0.9% IV 1000 ml Route: IV; Rate: 1 bolus; Site: right antecubital; ld1 11:08 Drug: Insulin Glargine Sub-Q 40 units Route: Sub-Q; Site: abdomen; ld1 11:17 Drug: HYDROmorphone IVP 1 mg Route: IVP; Site: right antecubital; ld1 11:17 Drug: Promethazine IVP 25 mg Route: IVP; Site: right antecubital; ld1 Medication: 13:17 VIS not applicable for this client. ld1 Outcome: 08:35 Decision to Hospitalize by Provider. young 13:15 Admitted to Med/surg accompanied by tech, via wheelchair, room 407., Report called to ld1 [address] 13:15 Condition: stable 13:15 Instructed on the need for admit. 13:17 Patient left the ED. ld1 Signatures: Dispatcher [employer] EDJohan Jara MD MD cha Jones, Susan sj Garcia, Rubi rg4 Janell Mccabe RN RN ld1 Georgia Ortiz Mary Beth RN [id number] Corrections: (The following items were deleted from the chart) 09:38 09:38 Allergies: No Known Allergies; ld1 ld1
--- OUTSIDE RECORDS SUMMARY | 2022-11-26 08:38 | XMS REPORT | Continuity of Care Document ---
:1980 Author Organization [facility] t Address [address] [place] [address] Care Team Providers Name Role Phone [phone] Primary Care Physician Unavailable Bebeto Qurioga Attending Clinician Unavailable Elbert Wilson Attending Clinician Unavailable NETO PEOPLES Attending Clinician Unavailable JUDI MCCLELLAND Attending Clinician Unavailable Katelyn Kennedy Attending Clinician KATELYN IVEY Attending Clinician Unavailable FABIO ZAMORA Attending Clinician Unavailable NICOLÁS EID Attending Clinician Unavailable ORLY THORPE Attending Clinician Unavailable YRIS HARRIS Attending Clinician Unavailable LAB90 Attending Clinician Unavailable Delvin FREEMAN, Leslie Monaco Attending Clinician MERI WRAY Attending Clinician Unavailable Robert Lutz MD Attending Clinician Meri Wray MD Attending Clinician Silvina Vallecillo MD Attending Clinician [phone] BEATRIZ EDUARDO Attending Clinician Unavailable Alesha ANDERSON, Beatriz Cross Attending Clinician JN MILLER Attending Clinician Unavailable Jn Miller DO Attending Clinician Jade Stout Attending Clinician FOZIA JANG Attending Clinician Unavailable Fozia Jang MD Attending Clinician MARY JAY Attending Clinician Unavailable Misty ROD Mary S Attending Clinician Doron Grijalva MD Attending Clinician DORON GRIJALVA Attending Clinician Unavailable FABIO AVALOS Attending Clinician Unavailable BRYSON GONZALEZ Attending Clinician Unavailable Lily Deleon PA-C Attending Clinician LESLEE SMITH Attending Clinician Unavailable LILY DELEON Attending Clinician Unavailable Doctor Unassigned, Brandon Attending Clinician Unavailable STANISLAW SUN Attending Clinician Unavailable ABHIJIT GALAN Attending Clinician Unavailable Kit Lopez Attending Clinician Unavailable KNOW, DOES_NOT Admitting Clinician Unavailable Elbert Wilson Admitting Clinician Unavailable Physician, No Primary or Family Admitting Clinician UnavailMERI Bills Admitting Clinician Unavailable Meri Wray MD Admitting Clinician KATELYN IVEY Admitting Clinician Unavailable BEATRIZ EDUARDO Admitting Clinician Unavailable JN MILLER Admitting Clinician Unavailable Bebeto Quiroga Admitting Clinician Unavailable FOZIA JANG Admitting Clinician Unavailable MARY JAY Admitting Clinician Unavailable Kit Lopez Admitting Clinician Unavailable Payers Payer Name Policy Type Policy Number Effective Date Expiration Date Nakul QUINONEZ GENERIC [id number] 2019 00:00:00 [employer] MP CVS 9 [id number] 2022 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 [id number] 2021 NON-CONTRACT 00:00:00 GENERIC Problems Condition Condition Condition Status Onset Resolution Last Treating Co mments Source Name Details Category Date Date Treatment Clinician Date Immunodefi Immunodefi Disease Active Abel quinonez ciency due ciency due 3-06 Se ybold to to 00:00: - conditions conditions 00 Ex terna classified classified l elsewhere elsewhere Gastroesop Gastroesop Disease Active Abel quinonez hageal hageal 2-28 [place] reflux reflux 00:00: - disease disease 00 Externa without without l esophagiti esophagiti s s Hypertrigl Hypertrigl Disease Active Abel quinonez yceridemia yceridemia 2-28 Se ybold 00:00: - 00 Externa l Other Other Disease Active Andreea chronic chronic 2-28 [place] pancreatit pancreatit 00:00: - is is 00 Externa l Primary Primary Disease Active Andreea hypertensi hypertensi 2-28 Se ybold on on 00:00: - 00 Externa l Urge Urge Disease Active Andreea incontinen incontinen 2-28 Se ybold ce of ce of 00:00: - urine urine 00 Externa l Depression Depression Disease Active Abel quinonez with with 2-28 [place] anxiety anxiety 00:00: - 00 Externa l DM type 2 DM type 2 Disease Active Spencer floresisaac with with 2-28 [place] diabetic diabetic 00:00: - mixed mixed 00 Externa hyperlipid hyperlipid l emia emia Hypertrigl Hypertrigl Disease Active U floresers yceridemia yceridemia 2-16 it y of 00:00: [place] [facility] Essential Essential Disease Active Uni vers hypertensi hypertensi 5-26 it y of on on 00:00: [place] [facility] POTS POTS Disease Active Univers (postural (postural 5-26 ity of orthostati orthostati 00:[place]: [place] c c 00 Medical tachycardi tachycardi Br anch a a syndrome) syndrome) Dyslipidem Dyslipidem Disease Active U nivers ia ia 5-26 ity of 00:00: [place] [facility] Atypical Atypical Disease Active Unive rs chest pain chest pain 5-25 it y of 00:00: [place] [facility] Pancreatit Pancreatit Disease Active U nivers is, is, 4-24 ity of recurrent recurrent 00:[place] [facility] Vulvar Vulvar Disease Active Methodi pain pain [...] ity of incision incision 00:00: [place] [facility] Mood Mood Disease Active Univers swings swings 1-30 ity of 00:00: [facility] Gestationa Gestationa Disease Active 2012-07 U nivers l l 2-21 ity of hypertensi hypertensi [place] [facility] Gestationa Gestationa Disease Active 2012-07 U [...] Other Other Disease Active Univers abnormalit abnormalit 7 it y of ies in ies in 00:00: [place] shape or shape or 00 Medica l position position Branch of gravid of gravid uterus and uterus and of of neighborin neighborin g g structures structures , , antepartum antepartum Biliary Biliary Disease Active Univers colic colic 7 ity of 00:00: [place] 00 Medical Branch Generalize Generalize Disease Active U nivers d anxiety d anxiety 7-18 ity of disorder disorder 00:00: [place] 00 Medical Branch Not immune Not immune Disease Active Overview : Univers to rubella to rubella 606 Formattin ity of 00:00: g of this [place] 00 note Medical might be Branch different from the original. Immunize postpartu mICD10 Diagnosis Term Jewelry Enameler Utility Immune to Immune to Disease Active Uni vers varicella varicella 6-06 ity of 00:00: [place] 00 Medical Branch Morbid Morbid Disease Active Univers obesity obesity 3-02 ity of 00:00: [place] 00 Medical Branch Type 2 Type 2 [...] 00 dic Hospita l alcohol FA Active IN HIVES TO [facility] TEQUILA 07-30 [place] 00:00: Orthope 00 dic [facility]ospita l tequila DA Active IN hives [facility] 07-30 [place] 00:00: Orthope 00 dic Hospita l alcohol FA Active MO 2019- [facility] 7-08 [place] 00:00: Orthope 00 dic Hospita l alcohol FA Active MO HIVES TO [facility] TEQUILA 01-15 [place] 00:00: Orthope 00 dic Hospita l tequila DA Active MO hives [facility] 7 Clear 00:00: [place] 00 [facility] Cefpodox Propensi Active Other (See Eye and M ethodi dewayne ty to Comments) 8-[address] adverse 00:00: Swelling Hospita reaction 00 30 mins l s to after drug taking medicatio n alcohol FA Active IN 2015-07 [facility] 09-06 [place] 00:00: Orthope 00 dic Hospita l alcohol FA Active IN TURNS RED 2015-07 [facility] 09-06 00:00: Orthope 00 dic Hospita l NO KNOWN Drug Active Univers ALLERGIE Class ity of [facility] [place] [facility] Family History Family Member Diagnosis Comments Start Date Stop Date Source Natural brother Diabetes [facility] Natural father [facility] Natural mother Diabetes [facility] Natural sister Diabetes [facility] Social History Social Habit Start Date Stop Date Quantity Comments Source Gender identity Shinto [facility] Sexual orientation Method ist Hospital Exposure to 2022-10-24 2022-11-03 Not sure University of SARS-CoV-2 (event) 00:00:00 08:52:00 [place] [facility] Tobacco use and 2022-09-07 2022-09-07 Smokeless Andreea Se ybold - exposure 00:00:00 00:00:00 tobacco non-user External Education 2022-09-07 2022-09-07 14 Andreea Floresybold - 00:00:00 00:00:00 External Alcohol intake 2019-11-22 2019-11-22 Current drinker Metho dist 00:00:00 00:00:00 of alcohol Hospital (finding) History of Social 2019-11-22 2019-11-[address] function 00:00:00 00:00:00 Hospital History [facility] 2019-11-22 2019-11-22 2 Shinto Alcohol Frequency 00:00:00 00:00:00 Hospita l History [facility] 2019-11-22 2019-11-22 1 Shinto Alcohol Std Drinks 00:00:00 00:00:00 Hospit al History [facility] 2019-11-22 2019-11-22 1 Shinto Alcohol Binge 00:00:00 00:00:00 Hospital Alcohol Comment 2016-09-09 2016-09-09 Megan joe. Meth odist 00:00:00 00:00:00 Hospital Sex Assigned At [birth year] Shinto 00:00:00 00:00:00 Hospital Smoking Status Start Date Stop Date Source Never smoked tobacco Andreea Traore old - External Medications Ordered Filled Start Stop Current Ordering Indication Dosage Frequency Signature Comments Components Source Medication Medication Date Date Medication? Clinician (SIG) Name Name dicyclomine 2022- No 20mg 20 mg, Uni vers (BENTYL) 11-03 Intramuscu ity of injection 15:30: 14:48 lar, ONCE, [place] 20 mg 00 :00 1 dose, On Medical Wed Branch 11/03/22 at 1030, MALAIKA NaCl 0.9% 2022- No 1000mL at 999 Uni vers (NS) bolus 11-03 mL/hr, ity of infusion 15:30: 15:55 1,000 mL, Blake as 1,000 mL 00 :00 IV Medical Infusion, Branch ONCE, 1 dose, On 11/03/22 at 1030, STAT famotidine 2022- No 20mg 20 mg, Univ ers (PEPCID 11-03 Slow IV ity of (PF)) 14:45: 14:51 Push, [place] injection 00 :00 ONCE, 1 Medical 20 mg dose, On Branch 11/03/22 at 0945, MALAIKA maalox:diph 2022- No 15mL 15 mL, Uni vers enhydrAMINE 11-03 Oral, ity of :lidocaine 14:45: 14:51 ONCE, 1 [place] as 2 % viscous 00 :00 dose, On Medi bonita 1:1:1 Wed Branch ([facility] 11/03/22 at [facility]) 0945, oral Routine suspension 15 mL ketorolac 2022- No 30mg 30 mg, Unive rs (TORADOL) 11-03 Slow IV ity of injection 14:30: 14:36 Push, [place] 30 mg 00 :00 ONCE, 1 Medical dose, On Branch 11/03/22 at 0930, MALAIKA ondansetron 2022-0 2023- No 4mg 4 mg, Slow Univers (ZOFRAN 11-03- IV Push, ity of (PF)) 14:30: 14:35 ONCE, 1 [place] injection 4 00 :00 dose, On Medi bonita mg Wed Branch 11/03/22 at 0930, MALAIKA dicyclomine 2022-0 Yes [id number] 20mg Take 1 Univers 20 mg 4-26 tablet by ity of tablet 00:00: mouth 4 [place] 00 (four) Medical times Branch daily as needed for Abdominal pain. ondansetron 2022-0 Yes [id number] 4mg Take 1 Univers 4 mg 4-26 tablet by ity of disintegrat 00:00: mouth [place] ing tablet 00 every 12 Medic al (twelve) Branch hours as needed for Nausea and Vomiting (N/V). Metformin 2022-0 Yes 1000mg Take 1,000 Andreea HCl 1000 MG 3-24 mg by Seybold oral Tab 15:48: mouth 2 - 28 times Externa daily l (with meals) Amitriptyli 2022-0 Yes 50mg Take 50 mg Andreea ne HCl 50 3-24 by mouth Seybol d MG oral 15:48: nightly - Tablet 28 Externa l Pantoprazol 0 Yes 40mg Take 40 mg Andreea e Sodium 40 3-24 by mouth Seyb old MG oral 15:48: daily - Tablet 28 Externa Delayed l Response busPIRone 2022-0 Yes 15mg Take 15 mg Ke lsey HCl 15 MG 3-24 by mouth 2 Seyb old oral Tablet 15:48: times - 28 daily Externa l Atorvastati 2022-0 Yes 80mg Take 80 mg Andreea n Calcium 3-24 by mouth Seybol d 80 MG oral 15:48: daily - Tablet 28 Externa l Aripiprazol 2022-0 Yes Take by Spencer sey e 10 MG 3-24 mouth Seybold oral Tablet 15:48: - 28 Externa l Dapaglifloz 2022-0 Yes 1{tbl} 1 tablet Andreea in 3-24 daily Seybold Propanediol 15:48: - (Farxiga) 28 Externa 10 MG oral l Tablet Oxybutynin 0 Yes 10mg Take 10 mg K elsey Chloride 10 3-24 by mouth Seyb old MG oral 15:48: daily - TABLET SR 28 Externa 24 HR l Sucralfate 2022-0 Yes 1g Take 1 g Spencer sey 1 g oral 3-24 by mouth 4 Seybo ld Tablet 15:48: times - 28 daily Externa l Lisinopril 2022-0 Yes 5mg Take 5 mg Ke lsey 5 MG oral 3-24 by mouth Seybol d Tablet 15:48: daily - 28 Externa l Meloxicam 2022-0 Yes [id number] 15mg QD Take 1 Andreea 15 MG oral -24 9107 tablet (15 Sey bold Tablet 00:00: mg total) - 00 by mouth Externa daily as l needed for pain Ezetimibe 2022-0 2022- No 10mg Take 10 mg K elsey 10 MG oral 3-03 03-03 by mouth Seyb old Tablet 10:42: 00:00 daily - 35 :00 Externa l Metformin 0 Yes 1000mg Take 1,000 Andreea HCl 1000 MG 3-03 mg by Seybold oral Tab 10:09: mouth 2 - 34 times Externa daily l (with meals) Amitriptyli 2022-0 Yes 50mg Take 50 mg Andreea ne HCl 50 3-03 by mouth Seybol d MG oral 10:09: nightly - Tablet 34 Externa l Pantoprazol 2022-0 Yes 40mg Take 40 mg Andreea e Sodium 40 3-03 by mouth Seyb old MG oral 10:09: daily - Tablet 34 Externa Delayed l Response busPIRone 2022-0 Yes 15mg Take 15 mg Ke lsey HCl 15 MG 3-03 by mouth 2 Seyb old oral Tablet 10:09: times - 34 daily Externa l Atorvastati 2022-0 Yes 80mg Take 80 mg Andreea n Calcium 3-03 by mouth Seybol d 80 MG oral 10:09: daily - Tablet 34 Externa l Aripiprazol 2022-0 Yes Take by Spencer sey e 10 MG 3-03 mouth Seybold oral Tablet 10:09: - 34 Externa l Dapaglifloz 2022-0 Yes 1{tbl} 1 tablet Andreea in 3-03 daily Seybold Propanediol 10:09: - (Farxiga) 34 Externa 10 MG oral l Tablet Oxybutynin Yes 10mg Take 10 mg K elsey Chloride 10 3-03 by mouth Seyb old MG oral 10:09: daily - TABLET SR 34 Externa 24 HR l Sucralfate Yes 1g Take 1 g Spencer sey 1 g oral 3-03 by mouth 4 Seybo ld Tablet 10:09: times - 34 daily Externa l Lisinopril Yes 5mg Take 5 mg Ke lsey 5 MG oral 3-03 by mouth Seybol d Tablet 10:09: daily - 34 Externa l Continuous Yes [id number] Use as Andreea Blood Gluc 3-03 3 directed Seybo ld Transmit 00:00: for - (Dexcom G6 00 continuous Ext john Transmitter glucose l ) does not monitoring apply Misc with Dexcom system Continuous Yes [id number] Use as Andreea Blood Gluc 3-03 3 directed Seybo ld Hand Ironer 00:00: for - (Dexcom G6 00 continuous Ext john Hand Ironer) glucose l does not monitoring apply Device Continuous Yes [id number] Use as Andreea Blood Gluc 3-03 3 directed Seybo ld Sensor 00:00: for - (Dexcom G6 00 continuous Ext john Sensor) glucose l does not monitoring apply Misc with Dexcom system Ostomy Yes [id number] Use as Ke lsey Supplies 3-03 3 directed Seybold (Skin Tac 00:00: for - Adhesive 00 continuous Exter na Barrier glucose l Wipe) does monitoring not apply with Misc Dexcom system Fenofibrate Yes [id number] 160mg Take 1 Andreea 160 MG oral 3-03 tablet Seybol d Tablet 00:00: (160 mg - 00 total) by Externa mouth l daily Insulin Yes [id number] 10U Inject 10 Andreea Aspart 3-03 3 units into Seybold (NovoLOG 00:00: the skin 3 - FlexPen) 00 times Externa 100 UNIT/ML daily l subcutaneou (before s Solution meals) Pen-injecto Plus r sliding scale 1 unit for every 50 above 150 (maximum 50 units per day) Continuous Yes [id number] Use as Andreea Blood Gluc 3-03 3 directed Seybo ld Transmit 00:00: for - (Dexcom G6 00 continuous Ext john Transmitter glucose l ) does not monitoring apply Misc with Dexcom system Continuous Yes [id number] Use as Andreea Blood Gluc 3-03 3 directed Seybo ld Hand Ironer 00:00: for - (Dexcom G6 00 continuous Ext john Hand Ironer) glucose l does not monitoring apply Device Continuous Yes [id number] Use as Andreea Blood Gluc 3-03 3 directed Seybo ld Sensor 00:00: for - (Dexcom G6 00 continuous Ext john Sensor) glucose l does not monitoring apply Misc with Dexcom system Ostomy Yes [id number] Use as Ke lsey Supplies 3-03 3 directed Seybold (Skin Tac 00:00: for - Adhesive 00 continuous Exter na Barrier glucose l Wipe) does monitoring not apply with Misc Dexcom system Fenofibrate Yes [id number] 160mg Take 1 Andreea 160 MG oral 3-03 tablet Seybol d Tablet 00:00: (160 mg - 00 total) by Externa mouth l daily Insulin Yes [id number] 10U Inject 10 Andreea Aspart 3-03 3 units into Seybold (NovoLOG 00:00: the skin 3 - FlexPen) 00 times Externa 100 UNIT/ML daily l subcutaneou (before s Solution meals) Pen-injecto Plus r sliding scale 1 unit for every 50 above 150 (maximum 50 units per day) Kake-3 Yes [id number] 1000{ca Take 1,000 Andreea 1000 MG 3-01 psule} capsules Seybol d oral 00:00: by mouth 3 - Capsule 00 times Externa daily l Insulin Yes [id number] 100U Inject 100 Andreea Glargine 3-01 3 units into Seybo ld (Basaglar 00:00: the skin - KwikPen) 00 at bedtime Exter na 100 UNIT/ML l subcutaneou s Solution Pen-injecto r Kake-3 Yes [id number] 1000{ca Take 1,000 Andreea 1000 MG 3-01 psule} capsules Seybol d oral 00:00: by mouth 3 - Capsule 00 times Externa daily l Insulin Yes [id number] 100U Inject 100 Andreea Glargine 3-01 3 units into Seybo ld (Basaglar 00:00: the skin - KwikPen) 00 at bedtime Exter na 100 UNIT/ML l subcutaneou s Solution Pen-injecto r Insulin 2022-0 202- No [id number] 10U Inject 10 Andreea Aspart 3-01 03-03 3 units into Seybol d (NovoLOG 00:00: 00:00 the skin 3 - FlexPen) 00 :00 times Externa 100 UNIT/ML daily l subcutaneou (before s Solution meals) Pen-injecto r Kake-3 2022-2022- No Take by Andreea 1000 MG 09-07 mouth Seybold oral 15:18: 00:00 - Capsule 41 :00 Externa l Insulin 2022-0 2022- No Inject Andreea Aspart 09-07 into the Seybold (NovoLOG 15:18: 00:00 skin - FlexPen) 41 :00 Externa 100 UNIT/ML l subcutaneou s Solution Pen-injecto r Insulin 2022-0 2022- No Inject Andreea Glargine 09-07 into the Seybol d (Basaglar 15:18: 00:00 skin at - KwikPen) 41 :00 bedtime Externa 100 UNIT/ML l subcutaneou s Solution Pen-injecto r Amitriptyli 2022- No 10mg Take 10 mg Andreea ne HCl 10 09-07 by mouth Seybo ld MG oral 15:10: 00:00 at bedtime - Tablet 02 :00 Externa l MethIMAzole 2022-0 2022- No 10mg Take 10 mg Andreea 10 MG oral 09-07 by mouth Seyb old Tab 15:01: 00:00 daily - 44 :00 Externa l Metformin 2022-0 Yes 1000mg Take 1,000 Andreea HCl 1000 MG 2-28 mg by Seybold oral Tab 14:59: mouth 2 - 38 times Externa daily l (with meals) Amitriptyli 2022-0 Yes 50mg Take 50 mg Andreea ne HCl 50 -28 by mouth Seybol d MG oral 14:59: nightly - Tablet 38 Externa l Pantoprazol Yes 40mg Take 40 mg Andreea e Sodium 40 -28 by mouth Seyb old MG oral 14:59: daily - Tablet 38 Externa Delayed l Response busPIRone Yes 15mg Take 15 mg Ke lsey HCl 15 MG -28 by mouth 2 Seyb old oral Tablet 14:59: times - 38 daily Externa l Atorvastati Yes 80mg Take 80 mg Andreea n Calcium -28 by mouth Seybol d 80 MG oral 14:59: daily - Tablet 38 Externa l Aripiprazol Yes Take by Spencer sey e 10 MG -28 mouth Seybold oral Tablet 14:59: - 38 Externa l Dapaglifloz Yes 1{tbl} 1 tablet Andreea in 09-07 daily Seybold Propanediol 14:59: - (Farxiga) 38 Externa 10 MG oral l Tablet Oxybutynin Yes 10mg Take 10 mg K elsey Chloride 10 -28 by mouth Seyb old MG oral 14:59: daily - TABLET SR 38 Externa 24 HR l Sucralfate Yes 1g Take 1 g Spencer sey 1 g oral 28 by mouth 4 Seybo ld Tablet 14:59: times - 38 daily Externa l Ezetimibe Yes 10mg Take 10 mg Ke lsey 10 MG oral 28 by mouth Seybo ld Tablet 14:59: daily - 38 Externa l Lisinopril Yes 5mg Take 5 mg Ke lsey 5 MG oral 28 by mouth Seybol d Tablet 14:59: daily - 38 Externa l Kake-3 Yes [id number] 1000{ca Take 1,000 Andreea 1000 MG -28 psule} capsules Seybol d oral 00:00: by mouth 3 - Capsule 00 times Externa daily l Insulin Yes [id number] 10U Inject 10 Andreea Aspart 28 3 units into Seybold (NovoLOG 00:00: the skin 3 - FlexPen) 00 times Externa 100 UNIT/ML daily l subcutaneou (before s Solution meals) Pen-injecto r Insulin Yes [id number] 100U Inject 100 Andreea Glargine 2-28 3 units into Seybo ld (Basaglar 00:00: the skin - KwikPen) 00 at bedtime Exter na 100 UNIT/ML l subcutaneou s Solution Pen-injecto r Insulin 2022- No [id number] 100U Inject 100 Andreea Glargine 2-28 02-28 3 units into Seyb old (Basaglar 00:00: 00:00 the skin - KwikPen) 00 :00 at bedtime Exter na 100 UNIT/ML l subcutaneou s Solution Pen-injecto r KCL 2022- No 40meq 40 mEq, Univers (KLOR-CON 2-20 02-20 Oral, ity of M20) tablet 15:15: 14:47 ONCE, 1 [place] 40 mEq 00 :00 dose, On Medical Mon Branch 08/30/22 at 0915, Routine Sliding Yes Subcutaneo Univ ers Scale 2-20 us, TID ity of Insulin - 15:00: MEALS+HS, Blake as Lispro 00 First dose Medical (HumaLOG) + (after Branch Fsbg last Testing modificati on) on Tue08/30/22 at 0900, Until Discontinu ed, Routine insulin Yes 50U 50 Units, Unive rs glargine 2-20 Subcutaneo ity o f (LANTUS 14:45: us, BID, [place] U-100) 00 First dose Medical injection on Tue Branch 50 Units 08/30/22 at 0845, Until Discontinu ed, Routine D5W 0.45% 2022- No IV Univers NaCl 2-20 -20 Infusion, ity of (1/2NS) 1 L 03:00: 14:25 at 100 Blake as + KCL 20 00 :34 mL/hr, Medical mEq CONTINUOUS Branch , Starting on 08/29/22 at 2100, Until Tue08/30/22 at 0825, Routine insulin Yes [id number] 72U inject 72 Univers degludec 2-20 Units ity of (TRESIBA 00:00: [place] FLEXTOUCH 00 skin 2 Medical U-100) 100 (two) Branch unit/mL (3 times mL) InPn daily. insulin Yes [id number] 72U inject 72 Univers degludec 2-20 Units ity of (TRESIBA 00:00: [place] FLEXTOUCH 00 skin 2 Medical U-100) 100 (two) Branch unit/mL (3 times mL) InPn daily. insulin Yes [id number] 72U inject 72 Univers degludec 2-20 Units ity of (TRESIBA 00:00: [place] FLEXTOUCH 00 skin 2 Medical U-100) 100 (two) Branch unit/mL (3 times mL) InPn daily. atorvastati 2022- Yes [id number] 80mg Take 1 Univers n 80 mg 2-20 -23 tablet by ity of tablet 00:00: 04:59 mouth at [place] 00 :00 bedtime Medical for 30 Branch days. LOVAZA, 2022- Yes [id number] 1g Take 1 Un fabiana omega-3-aci 2-20 - capsule by i ty of d ethyl 00:00: 04:59 mouth in [place] esters, 1 00 :00 the Medical gram morning Branch capsule and 1 capsule in the evening. Do all this for 30 days. atorvastati 2022- Yes [id number] 80mg Take 1 Univers n 80 mg 2-27 09- tablet by ity of tablet 00:00: 04:59 mouth at [place] 00 :00 bedtime Medical for 30 Branch days. LOVAZA, 2022- Yes [id number] 1g Take 1 Un fabiana omega-3-aci 2-20 - capsule by i ty of d ethyl 00:00: 04:59 mouth in [place] esters, 1 00 :00 the Medical gram morning Branch capsule and 1 capsule in the evening. Do all this for 30 days. D5W 0.45% 2022- No IV Univers NaCl 08-29 Infusion, ity of (1/2NS) 1 L 22:45: 02:58 at 200 Blake as + KCL 20 00 :57 mL/hr, Medical mEq CONTINUOUS Branch , Starting on 08/29/22 at 1645, Until 08/29/22 at 2058, Routine acetaminoph Yes 650mg 650 mg, Un fabiana en 2-18 Oral, ity of (TYLENOL) 18:48: Q6HPRN, [place] tablet 650 59 Starting Medic al mg on Sat Branch 08/28/22 at 1248, Until Discontinu ed, Routine, Pain (scale 1-3) calcium 2022-0 2022- No 2g 2 g, IV Univer s gluconate 2 08-28-18 Infusion, it y of g in NaCl 15:15: 17:27 at 200 [place] 100 mL 00 :00 mL/hr Medical (ISO-OSM) Administer Bran ch RTU IV over 30 infusion 2 Minutes, g ONCE, 1 dose, On 08/28/22 at 0915, Routine D5W 0.45% 2022-0 2022- No 1000mL at 100 Uni vers NaCl 08-28 02-19 mL/hr, ity of (1/2NS) IV 14:30: 21:45 1,000 mL, [place] infusion 00 :17 IV Medical 1,000 mL Infusion, Branch CONTINUOUS , Starting on 08/28/22 at 0830, Until 08/29/22 at 1545, Routine morpHINE (2 0 Yes 2mg 2 mg, Slow Univers mg/mL) 2-17 IV Push, ity of injection 2 20:13: Q4HPRN, [place] as mg 31 Starting Medical on Tue Branch 08/27/22 at 1413, Until Discontinu ed, Routine, Pain (scale 7-10) enoxaparin 2022-0 Yes 40mg 40 mg, Unive rs (LOVENOX) 2-17 Subcutaneo ity of injection 15:00: [place], DAILY, [place] 40 mg 00 First dose Medical on Tue Branch 08/27/22 at 0900, Until Discontinu ed, Routine lisinopriL 2022-0 Yes 2.5mg 2.5 mg, Uni vers (PRINIVIL,Z 2-17 Oral, ity of ESTRIL) 15:00: DAILY, [place] tablet 2.5 00 First dose Med ical mg on Tue Branch 08/27/22 at 0900, Until Discontinu ed, Routine fenofibrate 2022-0 Yes 134mg 134 mg, Un fabiana micronized 2-17 Oral, ity of (LOFIBRA) 15:00: DAILY, [place] capsule 134 00 First dose Me dical mg on Tue Branch 08/27/22 at 0900, Until Discontinu ed, Routine gabapentin Yes 600mg 600 mg, Uni vers (NEURONTIN) 08-27 Oral, BID, it y of tablet 600 02:00: First dose [place] mg 00 on Rachael Medical 08/26/22 at Branch 1999, Until Discontinu ed, Routine insulin 2022- No .1U/kg/ 0.1 Univer s regular in 08-27 0220 h Units/kg/h it y of 0.9 % NaCl 02:00: 14:25 r ?108.8 [place] (MYXREDLIN) 00 :34 kg (10.88 Med ical 100 mL/hr), IV Branch unit/100 mL Infusion, (1 unit/mL) CONTINUOUS RTU IV , Starting infusion on Rachael 08/26/[address] art insulin infusion at 0.1 u/kg/hr and keep fixed at that rate. Hold insulin infusion x 1 hour and NHO if BG < 140 mg/dL for instructio ns to increase dextrose fluids. Restart once BG >/= 140 mg/dL
magnesium 2022- No 2g 2 g, IV Univ ers sulfate in 08-27 Piggyback, it y of water 2 01:30: 03:11 Administer Blake as gram/50 mL 00 :00 over 60 Medica l (4 %) Minutes, Branch infusion 2 ONCE, 1 g dose, On Rachael 08/26/22 at 1930, MALAIKA ondansetron Yes 4mg 4 mg, Slow Univers (ZOFRAN 08-27 IV Push, ity of (PF)) 01:21: Q6HPRN, [place] injection 4 59 Nausea and Me dical mg Vomiting Branch (N/V), Starting on Rachael 08/26/22 at 1921
Do ses of ondansetro n 16 mg and above need to be administer ed via IV piggyback. For Dose >=24mg ECG monitoring is advisable.
glucagon Yes 1mg 1 mg, Univers (GLUCAGEN 08-27 Intramuscu ity of DIAGNOSTIC 00:45: [place], PRN, [place] KIT) 16 Starting Medical injection 1 on Rachael Branch mg 08/26/22 at 1845, Until Discontinu ed, MALAIKA, Blood Glucose < or = 70 mg/dL and patient is NPO, unable to swallow or has mental changes. dextrose 50 0 Yes 25mL 25 mL, Univ ers % in water 217 Slow IV ity of (D50W) 00:45: Push, PRN, [place] injection 16 Starting Medica l 25 mL on [facility] Branch 08/26/22 at 1845, Until Discontinu ed, MALAIKA, Blood Glucose < or = 70 mg/dL and patient is NPO, unable to swallow or has mental status changes. NaCl 0.9% 2022- No 1000mL at 200 Uni vers (NS) IV 08-27 02-19 mL/hr, IV ity of infusion 00:00: 21:45 Infusion, [place] as 1,000 mL 00 :17 CONTINUOUS Medic al , Starting Branch on [facility] 08/26/22 at 1800, Until 08/29/22 at 1545, Routine LOVAZA Yes 2{capsu 2 g (2 Univer s (omega-3-ac 2-16 le} capsule), ity of id ethyl 23:00: Oral, BID, [place] esters) 00 First dose Medica l capsule 2 g on [facility] Branch 08/26/22 at 1700, Until Discontinu ed, Routine atorvastati 0 Yes 80mg 80 mg, Univ ers n (LIPITOR) 2-16 Oral, QHS, it y of tablet 80 23:00: First dose [place] mg 00 on [facility] Medical 08/26/22 at Branch 1700, Until Discontinu ed, Routine insulin 2022- No 8U 8 Units, Unive rs regular 08-26-16 Slow IV ity of human 23:00: 23:06 Push, [place] (HUMULIN R) 00 :00 ONCE, 1 Medic al injection 8 dose, On Bran ch Units [facility] 08/26/22 at 1700, STAT
In dication for insulin: Hyperglyce shea NaCl 0.9% 2022- No 2000mL at 999 Uni vers (NS) bolus 08-26-16 mL/hr, ity of infusion 21:45: 23:52 2,000 mL, [place] 2,000 mL 00 :00 IV Medical Piggyback, Branch ONCE, 1 dose, On Rachael 08/26/22 at 1545, STAT insulin 2022- No 10U 10 Units, Univ ers regular -16 -16 Slow IV ity of human 21:00: 21:11 José Miguel, [place] (HUMULIN R) 00 :00 ONCE, 1 Medic al injection dose, On Branch 10 Units Rachael 08/26/22 at 1500, STAT
In dication for insulin: Hyperglyce shea Lactobacill 2022- No Take by Un fabiana us 16 -16 mouth. ity of acidophilus 18:46: 00:00 [place] (PROBIOTIC 18 :00 Medical ORAL) Branch MULTIVITAMI 2022- No Take by Un fabiana N ORAL -16 -16 mouth. ity of 18:46: 00:00 [place] 18 :00 Medical Branch multivitami 2022- No Take by Un fabiana n with 08-26-16 mouth. ity of minerals 18:46: 00:00 [place] (HAIR,SKIN 18 :00 Medical AND NAILS Branch ORAL) TAKE 1 2021-07 No TABLET 2-14 DAILY. 00:00: 00 TAKE 1 2021- No TABLET 2-14 TWICE 00:00: DAILY. 00 TAKE 1 2021- No TABLET 2-14 TWICE DAILY 00:00: UNTIL 00 FINISHED. INJECT 72 2021-07 No UNITS TWICE 2-14 A DAY 00:00: 00 TAKE 1 2021- No TABLET 2-14 DAILY. 00:00: 00 TAKE 2021-1 No DIRECTED. 2-14 00:00: 00 Dose 2021-1 No Unknown 2-14 00:00: 00 USE 3-4 2021-1 No TIMES 2-14 WEEKLY. 00:00: LEAVE ON 00 FOR 5-10 MINUTES BEFORE RINSING. Dose 2021-1 No Unknown 2-14 00:00: 00 TAKE 2 2021-1 No TABLETS BY 2-14 MOUTH ON 00:00: DAY 1 AND 00 THEN TAKE 1 TABLET BY MOUTH ONCE DAILY AFTERWARDS FOR 14 DAYS INJECT 2021-1 No BELOW THE 2-14 SKIN 70 00:00: UNITS 2 00 TIMES A DAY TAKE 1 2021-1 No TABLET BY 2-14 [...] No 5MG Tablets 2-14 00:00: 00 Dose 2021- No Unknown 2-14 00:00: 00 TAKE BY 2021-1 No MOUTH 3 2-14 CAPSULES 3 00:00: TIMES A DAY 00 STOP GABENTIN 800MG TAKE 1 2021- No TABLET BY 2-14 MOUTH 00:00: NIGHTLY 00 TAKE 1 2021- No TABLET BY 2-14 MOUTH TWICE 00:00: A DAY 00 TAKE 1 2021- No TABLET 2-14 [...] Dose 2021-1 No Unknown 2-14 00:00: 00 TAKE 3 2021-1 No CAPSULES BY 2-14 MOUTH EVERY 00:00: DAY 00 TAKE 1 2021- No TABLET BY 2-14 MOUTH THREE 00:00: [...] 1000mL at 999 Uni vers (NS) bolus 2 12-13 mL/hr, ity of infusion 05:00: 05:09 [...] of at least 10% in glucose levels, NHO for considerat ion of endocrinol ogy consult&nb [...] 2-13 ity of 1000 mL + 02:00: [place] KCL 20 mEq 00 Medical Branch D5W 0.45% 2021-07 Yes 1000mL at 200 Univ ers NaCl 2-13 mL/hr, ity of (1/2NS) IV 01:48: 1,000 mL, [place] infusion 28 IV Medical 1,000 mL Infusion, Hannah PRN - SEE INSTRUCTIO NS, Starting on Tue06/21/22 at 1948, Until Discontinu ed, MALAIKA ondansetron 2021-07- No 4mg 4 mg, Slow [facility] (ZOFRAN 2-13 12-13 IV Push, ity of (PF)) 01:00: 01:01 ONCE, 1 [place] injection 4 00 :00 dose, On Medi bonita mg [facility] 06/21/22 at 1900, MALAIKA NaCl 0.9% 2021-07 No 1000mL at 999 Uni vers (NS) bolus 2-13 12-13 mL/hr, ity of infusion 00:45: 01:56 1,000 mL, [place] 1,000 mL 00 :00 IV Medical Infusion, Branch ONCE, 1 dose, On Tue06/21/22 at 1845, STAT TAKE 1 2021-07 No TABLET 0-21 TWICE A DAY 00:00: 00 TAKE 1 1 No TABLET 0-21 TWICE A DAY 00:00: 00 TAKE 1 2021-1 No TABLET 0-21 TWICE A DAY 00:00: 00 TAKE 1 2021-1 No TABLET 0-21 TWICE A DAY 00:00: 00 TAKE 1 2021-1 No TABLET 0-21 TWICE A DAY 00:00: 00 Dose 2021-0 No Unknown 7-13 00:00: 00 Bromfed DM 2021-0 No 5mg/5 2 mg-30 7-13 mL mg-10 mg/5 00:00: mL oral 00 syrup Bromfed DM 2021-0 No 5mg/5 2 mg-30 7-13 mL mg-10 mg/5 00:00: mL oral 00 syrup Bromfed DM 2021-0 No 5mg/5 2 mg-30 7-13 mL mg-10 mg/5 00:00: mL oral 00 syrup Bromfed DM 2021-0 No 5mg/5 2 mg-30 7-13 mL mg-10 mg/5 00:00: mL oral 00 syrup Bromfed DM 2021-0 No 5mg/5 2 mg-30 7-13 [...] Valium 10 2022-0 No 1mg mg tablet - 00:00: 00 Macrodantin 2022-0 No 1mg 100 mg 6-03 capsule 00:00: 00 Valium 10 2022-0 No 1mg mg tablet 12-11 00:00: 00 Macrodantin 2022-0 No 1mg 100 mg 6-03 capsule 00:00: 00 Valium 10 2022-0 No 1mg mg tablet 12-11 00:00: 00 Macrodantin 2022-0 No 1mg 100 mg 6-03 capsule 00:00: 00 Valium 10 2022-0 No 1mg mg tablet - 00:00: 00 Macrodantin 2022-0 No 1mg 100 mg 6-03 capsule 00:00: 00 Valium 10 2022-0 No 1mg mg tablet - 00:00: 00 Macrodantin 2022-0 No 1mg 100 mg 6-03 capsule 00:00: 00 Valium 10 2022-0 No 1mg mg tablet - 00:00: 00 Macrodantin 2022-0 No 1mg 100 mg 6-03 capsule 00:00: 00 Valium 10 2022-0 No 1mg mg tablet - 00:00: 00 Macrodantin 2022-0 No 1mg 100 [...] No Unknown 5-14 00:00: 00 TAKE 1 2022-0 No TABLET 5-14 DAILY. 00:00: 00 TAKE 1 2022-0 No TABLET 5-14 TWICE 00:00: DAILY. 00 Dose 2022-0 No Unknown 5-14 00:00: 00 Dose 2022-0 No Unknown 5-14 00:00: 00 Dose 2022-0 No Unknown 5-14 00:00: 00 Dose 2022-0 No Unknown 5-14 00:00: 00 Victoza 2022-0 No (18 3-Christofer 0.6 5-14 [...] lisinopril 2022-0 No 1mg 5 mg tablet 14 00:00: 00 atorvastati 2-0 No 1mg n 40 mg 5-14 tablet 00:00: 00 oxybutynin 2-0 No 1mg chloride 5 5-14 mg tablet 00:00: 00 glimepiride 2022-0 No 1mg 4 mg tablet 14 00:00: [...] mg 00:00: tablet,exte 00 nded release Dose 2021-0 No Unknown 5-14 00:00: 00 Dose 2-0 No Unknown 5-14 00:00: 00 TAKE 1 2-0 No TABLET 5-14 DAILY. 00:00: 00 TAKE 1 2-0 No TABLET 5-14 TWICE 00:00: DAILY. 00 Dose 2021-0 No Unknown 5-14 00:00: 00 Dose 2-0 No Unknown 5-14 00:00: 00 Dose 2-0 No Unknown 5-14 00:00: 00 Dose 2-0 No Unknown 5-14 00:00: 00 Dose 2-0 No Unknown 4-19 00:00: 00 Dose 2-0 No Unknown 4-19 00:00: 00 doxycycline 2-0 No 1mg hyclate 100 4-19 mg capsule 00:00: 00 Dose 2-0 No Unknown 4-19 00:00: 00 Dose 2-0 No Unknown 4-19 00:00: 00 Dose 2-0 No Unknown 4-19 00:00: 00 Dose 2-0 No Unknown 4-19 00:00: 00 Dose 2-0 No Unknown 4-19 00:00: 00 Dose 2-0 No Unknown 4-19 00:00: 00 Dose 2022-0 No Unknown 4-19 00:00: 00 Dose 2-0 No Unknown 4-19 00:00: 00 Dose 2-0 No Unknown 4-19 00:00: 00 doxycycline 2022-0 No 1mg hyclate 100 4-19 mg capsule 00:00: 00 Dose 2-0 No Unknown 4-19 00:00: 00 Dose 2022-0 No Unknown 4-19 00:00: 00 Dose 2022-0 No Unknown 4-19 00:00: 00 Dose 2-0 No Unknown 4-19 00:00: 00 Dose 2022-0 No Unknown 4-19 00:00: 00 Dose 2022-0 No Unknown 4-19 00:00: 00 Dose 2022-0 No Unknown 4-19 00:00: 00 Dose 2022-0 No Unknown 4-19 00:00: 00 Dose 2022-0 No Unknown 4-19 00:00: 00 Dose 2022-0 No Unknown 4-15 00:00: 00 hydroxyzine 2-0 No 12mg HCl 25 mg 4-15 tablet [...] Dose 2022-0 No Unknown 4-13 00:00: 00 NaCl 0.9% 2021-0 2021- No 1000mL at 999 Uni vers (NS) IV 4-09 04-09 mL/hr, ity of infusion 02:00: 02:08 Intravenou [place] 1,000 mL 00 :00 s, ONCE, 1 Medic al dose, On Branch Tue10/16/21 at 2100, MALAIKA insulin 2021- No .1U/kg 10.3 Units U nivers regular 10-17 (rounded ity of human 02:00: 01:14 from 10.34 [place] (HUMULIN R) 00 :00 Units = Medic [...] [place] injection 4 00 :00 dose, On [facility] mg Tue10/16/21 Branch at 1815, MALAIKA ketorolac 2021- No 30mg 30 mg, Unive rs (TORADOL) 10-16- Slow IV ity of injection 23:15: 23:05 Push, [place] 30 mg 00 :00 ONCE, 1 Medical dose, On Branch Tue10/16/21 at 1815, Routine
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 ondansetron 2022-0 Yes [id number] 4mg Take 1 Univers 4 mg 4-08 tablet by ity of disintegrat 00:00: mouth [place] ing tablet 00 every 8 Medica l (eight) Branch hours as needed for Nausea and Vomiting (N/V). oxybutynin 2022-0 Yes [id number] 5mg Take 1 Univers chloride 5 4-08 tablet by ity of mg tablet 00:00: mouth 3 [place] 00 (three) Medical times Branch daily as needed for Bladder spasms. ondansetron 2022-0 Yes [id number] 4mg Take 1 Univers 4 mg 4-08 tablet by ity of disintegrat 00:00: mouth [place] ing tablet 00 every 8 Medica l (eight) Branch hours as needed for Nausea and Vomiting (N/V). oxybutynin 2022-0 Yes [id number] 5mg Take 1 [facility] chloride 5 4-08 tablet by ity of mg tablet 00:00: mouth 3 [place] 00 (three) Medical times Branch daily as needed for Bladder spasms. ondansetron 2-0 Yes [id number] 4mg Take 1 [facility] 4 mg 4-08 tablet by ity of disintegrat 00:00: mouth [place] ing tablet 00 every 8 Medica l (eight) Branch hours as needed for Nausea and Vomiting (N/V). oxybutynin 2022-0 Yes [id number] 5mg Take 1 [facility] chloride 5 4-08 tablet by ity of mg tablet 00:00: mouth 3 [place] 00 (three) Medical times Branch daily as needed for Bladder spasms. ondansetron 2022-0 Yes [id number] 4mg Take 1 [facility] 4 mg 4-08 tablet by ity of disintegrat 00:00: mouth [place] ing tablet 00 every 8 Medica l (eight) Branch hours as needed for Nausea and Vomiting (N/V). oxybutynin 2022-0 Yes [id number] 5mg Take 1 [facility] chloride 5 4-08 tablet by ity of mg tablet 00:00: mouth 3 [place] 00 (three) Medical times Branch daily as needed for Bladder spasms. ondansetron 2022-0 Yes [id number] 4mg Take 1 Univers 4 mg 4-08 [...] 7 days. Indication s: acute pain Dose 2021-0 No Unknown 4-02 00:00: 00 Dose 2021-0 No Unknown 4-02 00:00: 00 Dose 2021-0 No Unknown 4-02 00:00: 00 Dose 2021-0 No Unknown 4-02 00:00: 00 Dose 2021-0 No Unknown 4-02 00:00: 00 Dose 2021-0 No Unknown 4-02 00:00: 00 Dose 2-0 No Unknown 4-02 00:00: 00 Dose 2-0 No Unknown 4-02 00:00: 00 Dose 2-0 No Unknown 4-02 00:00: 00 Dose 2021-0 No Unknown 4-02 00:00: 00 Dose 2-0 [...] 3- 00:00: 00 Dose 2021-0 No Unknown 3 00:00: 00 Dose 2021-0 No Unknown 3 00:00: 00 Dose 2021-0 No Unknown 3 00:00: 00 Dose 2021-0 No Unknown 3 00:00: 00 Dose 2021-0 No Unknown 3 00:00: 00 Dose 2021-0 No Unknown 3 00:00: 00 ketorolac 2021- No 15mg 15 mg, Unive rs [...] Tue Branch 09/22/21 at 1015, Routine Dose No Unknown 1-19 00:00: 00 Dose 2021-0 No Unknown 1-19 00:00: 00 hydrochloro 2021-0 No 1mg thiazide 25 1-19 mg tablet 00:00: 00 Dose 2021-0 No Unknown 1-19 00:00: 00 Dose 2021-0 No Unknown 1-19 00:00: 00 Dose 2021-0 No Unknown 1-19 00:00: 00 Dose 2021-0 No Unknown 1-19 00:00: 00 amitriptyli 2021-0 No 1mg ne 10 mg -19 tablet 00:00: 00 gabapentin 2021-0 No 3mg [...] 1-19 00:00: 00 Dose 2022-0 No Unknown - 00:00: 00 Dose 2021-0 No Unknown - 00:00: 00 morpHINE 2020-07- No 4mg 4 [...] No 30mg 30 mg, Unive rs (TORADOL) 08-19- [...] Indication s: acute pain ondansetron 2020-07 Yes [id number] 4mg Take 1 Univers 4 mg 2-09 [...] Indication s: acute pain ondansetron 2020-07 Yes [id number] 4mg Take 1 Univers 4 mg 2-09 [...] Indication s: acute pain ondansetron 2020-07 Yes [id number] 4mg Take 1 Univers 4 mg -09 tablet by ity of disintegrat 00:00: mouth [place] ing tablet 00 every 4 Medica l (four) Branch hours as needed for Nausea and Vomiting (N/V). traMADoL 50 2020-07- No [id number] 50mg Take 1 Uni vers mg tablet 08-19- tablet by ity of 00:00: 00:00 mouth [place] 00 :00 every 6 Medical (six) Branch hours as needed for Pain (scale 4-6). Indication s: acute pain ondansetron 2020-07- No [id number] 4mg Take 1 Univers 4 mg 08-19- tablet by ity of disintegrat 00:00: 00:00 [...] glimepiride 2020-07 No 1mg 4 mg tablet 2- 00:00: 00 Diflucan 2020-07 No 1mg 150 mg 2-07 tablet 00:00: 00 hydrochloro 2020-07 No 1mg thiazide 25 2-07 mg tablet 00:00: 00 glimepiride 2020-07 No 1mg 4 mg tablet 2- 00:00: 00 Diflucan 2020-07 No 1mg 150 [...] 05/30/21 at 1800, Routine iopamidol 2020-07- No [id number] 100mL 100 mL, Univers (ISOVUE 07-30 9109 Intravenou ity o f 370-500 mL) 23:48: 23:48 s, ONCE, 1 [place] injection 00 :00 dose, On Medica l 100 mL Sat Branch 05/30/21 at 1800, Routine ibuprofen 2020-07 Yes [id number] 600mg Take 1 Univers 600 mg -20 [id number] tablet by ity of tablet 00:00: mouth [place] 00 every 6 Medical (six) Branch hours as needed for Pain (scale 4-6). traMADoL 50 2020-07 Yes [id number] 50mg Take 1 Univ ers mg tablet -20 tablet by ity o f 00:00: mouth [place] 00 every 6 Medical (six) Branch hours as needed for Pain (scale 7-10). Indication s: acute pain ibuprofen 2020-07 Yes [id number] 600mg Take 1 Univers 600 mg 1-20 [id number] tablet by ity of tablet 00:00: mouth [place] 00 every 6 Medical (six) Branch hours as needed for Pain (scale 4-6). traMADoL 50 2020-07 Yes [id number] 50mg Take 1 Univ ers mg tablet 1-20 tablet by ity o f 00:00: mouth [place] 00 every 6 Medical (six) Branch hours as needed for Pain (scale 7-10). Indication s: acute pain ibuprofen 2020-07 Yes [id number] 600mg Take 1 Univers 600 mg 1-20 [id number] tablet by ity of tablet 00:00: mouth [place] 00 every 6 Medical (six) Branch hours as needed for Pain (scale 4-6). traMADoL 50 2020-07 Yes [id number] 50mg Take 1 Univ ers mg tablet 1-20 tablet by ity o f 00:00: mouth [place] 00 every 6 Medical (six) Branch hours as needed for Pain (scale 7-10). Indication s: acute pain ibuprofen 2020-07 Yes [id number] 600mg Take 1 Univers 600 mg 1-20 [id number] tablet by ity of tablet 00:00: mouth [place] 00 every 6 Medical (six) Branch hours as needed for Pain (scale 4-6). traMADoL 50 2020-07 Yes [id number] 50mg Take 1 Univ ers mg tablet 1-20 tablet by ity o f 00:00: mouth [place] 00 every 6 Medical (six) Branch hours as needed for Pain (scale 7-10). Indication s: acute pain ibuprofen 2020-07 Yes [id number] 600mg Take 1 [facility] 600 mg 1-20 [id number] tablet by ity of tablet 00:00: mouth [place] 00 every 6 Medical (six) Branch hours as needed for Pain (scale 4-6). ibuprofen 2020-07 Yes [id number] 600mg Take 1 [facility] 600 mg 1-20 [id number] tablet by ity of tablet 00:00: mouth [place] 00 every 6 Medical (six) Branch hours as needed for Pain (scale 4-6). ibuprofen 2020-073- No [id number] 600mg Take 1 Univers 600 mg 1-20 02-16 [id number] tablet by ity o f tablet 00:00: 00:00 mouth [place] 00 :00 every 6 Medical (six) Branch hours as needed for Pain (scale 4-6). traMADoL 50 2020-07- No [id number] 50mg Take 1 Uni vers mg tablet [id number] tablet by itisaac of 00:00: 00:00 [facility] 00 :00 every 6 Medical (six) Branch [...] No 1mg mg tablet 07-11 00:00: [facility] No [facility] tablet 07-11 [facility] No 1mg mg tablet 07-11 00:00: 00 TAKE 1 TAB 2020-07 No PO Q AM 07-11 00:00: 00 TAKE 1 TAB 2020-1 No PO Q AM 07-11 00:00: 00 sumatriptan 2020-07 No 1mg 50 [...] 50 mg 0-07 tablet 00:00: 00 sumatriptan 2021-1 No 1mg 50 mg 0-07 tablet 00:00: 00 sumatriptan 2021-1 No 1mg 50 mg 0-07 tablet 00:00: 00 Dose 2021-1 No Unknown 0-07 00:00: 00 Dose 1-1 No Unknown 0-07 00:00: 00 Tresiba 2021-0 No (3 mL) [...] mg -28 capsule 00:00: 00 Vascepa 1 1-0 No [...] 00 gabapentin 2021-0 No 3mg 300 mg 04-07 capsule 00:00: 00 Vascepa 1 1-0 No 1gram gram 04-07 capsule 00:00: 00 Tresiba 2021-0 No (3 [...] 00 Janumet XR 1-0 No 1mg 100 -28 mg-1,000 mg 00:00: tablet,exte 00 nded release [...] 00 Vascepa 1 1-0 No 1gram gram 04-07 capsule 00:00: 00 Tresiba 2021-0 No (3 mL) FlexTouch - U-100 00:00: insulin 100 00 unit/mL (3 mL) subcutaneou s pen alogliptin 1-0 No 1mg 25 mg 04-07 tablet 00:00: 00 lisinopril 1-0 No 1mg 5 mg tablet 04-07 00:00: 00 hydrochloro 1-0 No 1mg thiazide 25 9-28 mg tablet 00:00: 00 glimepiride 1-0 No 1mg 4 mg tablet 04-07 00:00: 00 Janumet XR 2020-0 No 1mg 100 9- mg-1,000 mg 00:00: tablet,exte 00 nded release amitriptyli 2020-0 No 1mg ne 10 mg 04-07 tablet 00:00: 00 gabapentin 2021-0 No 3mg 300 mg 04-07 capsule 00:00: 00 Vascepa 1 1-0 No 1gram gram 04-07 capsule 00:00: 00 Tresiba 1-0 No (3 [...] 10 mg 04-07 tablet 00:00: 00 gabapentin 2021-0 No 3mg 300 mg 04-07 capsule 00:00: 00 Vascepa 1 2020-0 No 1gram gram 04-07 capsule 00:00: 00 Tresiba 1-0 No (3 mL) FlexTouch - U-100 00:00: insulin 100 00 unit/mL (3 mL) subcutaneou s pen alogliptin 2020-0 No 1mg 25 mg 04-07 tablet 00:00: 00 lisinopril 1-0 No 1mg [...] 00 gabapentin 1-0 No 3mg 300 mg 04-07 capsule 00:00: 00 Dose 1-0 No Unknown [...] mg 00:00: tablet,exte 00 nded release amitriptyli 2021-0 No 1mg ne 10 mg 9-28 tablet 00:00: 00 gabapentin 2021-0 No 3mg 300 mg 9-28 capsule 00:00: 00 Dose 2021-0 No Unknown 9-28 00:00: 00 Augmentin 2021-0 No 1mg 875 mg-125 9-13 [...] mcg/actuati 00 on nasal spray,suspe nsion Augmentin 2020-0 No 1mg 875 mg-125 9-13 mg tablet 00:00: 00 fluconazole 1-0 No 1mg 200 mg 9-13 tablet 00:00: 00 Flonase 2020-0 No 2mcg/ac Allergy 9-13 tuation Relief 50 00:00: mcg/actuati 00 on nasal spray,suspe nsion Augmentin 2020-0 No 1mg 875 mg-125 9-13 mg tablet 00:00: 00 fluconazole 2021-0 No 1mg 200 mg 9-13 tablet 00:00: 00 Flonase 2020-0 No 2mcg/ac Allergy 9-13 tuation Relief 50 00:00: mcg/actuati 00 on nasal spray,suspe nsion Augmentin 2020-0 No 1mg 875 mg-125 9-13 mg tablet 00:00: 00 fluconazole 2020-0 No 1mg 200 mg 9-13 tablet 00:00: 00 Flonase 2020-0 No 2mcg/ac Allergy 9-13 tuation Relief 50 00:00: mcg/actuati 00 on nasal spray,suspe nsion Dose 2020-0 No Unknown 9-13 00:00: 00 Dose 2020-0 No Unknown 9-13 00:00: 00 Dose 2020-0 No Unknown 9-13 00:00: 00 Dose 2020-0 No Unknown 9-13 00:00: 00 Dose 2020-0 No Unknown 9-13 00:00: 00 Dose 2020-0 No Unknown 9-13 00:00: 00 VASCEPA 1 2020-0 Yes [id number] TAKE 3 U nivers gram 9-10 CAPSULES ity of capsule 00:00: BY MOUTH [place] EVERY DAY Medical Branch VASCEPA 1 2020-0 Yes [id number] TAKE 3 U nivers gram 9-10 CAPSULES ity of capsule 00:00: BY MOUTH [place] EVERY DAY Medical Branch VASCEPA 1 2020-0 Yes [id number] TAKE 3 U nivers gram 9-10 CAPSULES ity of capsule 00:00: BY MOUTH [place] EVERY DAY Medical Branch VASCEPA 1 2020-0 Yes [id number] TAKE 3 U nivers gram 9-10 CAPSULES ity of capsule 00:00: BY MOUTH [place] EVERY DAY Medical Branch VASCEPA 1 2020-0 Yes [id number] TAKE 3 U nivers gram 9-10 CAPSULES ity of capsule 00:00: BY MOUTH [place] EVERY DAY Medical Branch VASCEPA 1 2020-0 Yes [id number] TAKE 3 U nivers gram 9-10 CAPSULES ity of capsule 00:00: BY MOUTH [place] EVERY DAY Medical Branch VASCEPA 1 2020-0 Yes [id number] TAKE 3 U nivers gram 9-10 CAPSULES ity of capsule 00:00: BY MOUTH [place] EVERY DAY Medical Branch VASCEPA 1 2020-0 Yes [id number] TAKE 3 U nivers gram 9-10 CAPSULES ity of capsule 00:00: BY MOUTH [place] EVERY DAY Medical Branch VASCEPA 1 2020-0 Yes [id number] TAKE 3 U nivers gram 9-10 CAPSULES ity of capsule 00:00: BY MOUTH [place] [id number] EVERY DAY Medical Branch VASCEPA 1 2020-0 Yes [id number] TAKE 3 U nivers gram 9-10 CAPSULES ity of capsule 00:00: BY MOUTH [place] [id number] EVERY DAY Medical Branch azithromyci 2021-0 No [...] 5 mg tablet 7-30 00:00: 00 glimepiride 2021-0 No 1mg 4 [...] 300 mg 7-30 capsule 00:00: 00 Dose 1-0 No Unknown 7-30 [...] 10 mg 6-23 tablet 00:00: 00 Dose 1-0 No Unknown 6-23 00:00: 00 buspirone 1-0 No 1mg 10 mg 6-23 tablet 00:00: 00 hydroxyzine 1-0 No 12mg HCl 10 mg 6-23 tablet 00:00: 00 buspirone 1-0 No 1mg 10 mg 6-23 tablet 00:00: 00 Dose 1-0 No Unknown 6-23 00:00: 00 buspirone 1-0 No 1mg 10 mg 6-23 tablet 00:00: 00 Dose 1-0 No Unknown 6-23 00:00: 00 buspirone 1-0 No 1mg 10 mg 6-23 tablet 00:00: 00 Dose 1-0 No Unknown 6-23 00:00: 00 buspirone 1-0 No 1mg 10 mg 6-23 tablet 00:00: 00 Dose 1-0 No Unknown 6-23 00:00: 00 buspirone 1-0 No 1mg 10 mg 6-23 tablet 00:00: 00 Dose 2021-0 No Unknown 6-23 00:00: 00 buspirone 1-0 No 1mg 10 mg 6-23 tablet 00:00: 00 Dose 1-0 No Unknown 6-23 00:00: 00 Dose 1-0 No Unknown 6-23 00:00: 00 Dose 1-0 No Unknown 6-23 00:00: 00 Dose 1-0 No Unknown 6-23 00:00: 00 Dose 1-0 No Unknown 6-23 00:00: 00 hydrocortis 1-0 [...] 00:00: tablet,exte 00 nded release Janumet XR 2021-0 No 1mg 100 6-09 mg-1,000 mg 00:00: tablet,exte 00 nded release Janumet XR 2021-0 No 1mg 100 6-09 mg-1,000 mg 00:00: tablet,exte 00 nded release Janumet XR 2021-0 No 1mg 100 6-09 mg-1,000 mg 00:00: tablet,exte 00 nded release Janumet XR 2021-0 No 1mg 100 6-09 [...] 00:00: tablet,exte 00 nded release icosapent 2020-0 2020- No [id number] 3g Take 3 Univers ethyL 12-10 09-10 capsules ity of (VASCEPA) 1 00:00: 00:00 by mouth [place] gram 00 :00 daily. Medical capsule Branch Tresiba 0 No (3 mL) FlexTouch 6-01 U-100 00:00: insulin 100 00 unit/mL (3 mL) subcutaneou s pen alogliptin 2020-0 No 1mg 25 mg 6-01 tablet 00:00: 00 hydrochloro 1-0 No 1mg thiazide 25 6-01 mg tablet 00:00: 00 metformin 1-0 No 1mg 850 mg 6-01 tablet 00:00: [...] unit/mL (3 mL) subcutaneou s pen gabapentin 1-0 No 1mg 800 mg 6-01 tablet 00:00: 00 Dose 2021-0 No Unknown 6- 00:00: 00 Dose 2021-0 No Unknown 6- 00:00: 00 Dose 2021-0 No Unknown 6- 00:00: 00 Tresiba 2021-0 No (3 mL) FlexTouch 6-01 U-100 00:00: insulin 100 00 unit/mL (3 mL) subcutaneou s pen gabapentin No 1mg 800 mg 12-09 tablet 00:00: 00 Dose No Unknown 12-09 00:00: 00 Dose No Unknown 12-09 00:00: 00 Dose No Unknown 12-09 00:00: 00 Lactobacill Yes Take by Uni vers us 5-27 mouth. ity of acidophilus 22:32: [place] (PROBIOTIC 10 Medical ORAL) Branch MULTIVITAMI Yes Take by Uni vers N ORAL 5-27 mouth. ity of 22:32: [place] [address] Medical [place] multivitami Yes Take by Uni vers n with 5-27 mouth. ity of minerals 22:32: [place] (HAIR,SKIN 10 Medical AND NAILS Branch ORAL) Lactobacill Yes Take by [facility] us 5-27 mouth. ity of acidophilus 17:32: [place] (PROBIOTIC 10 Medical ORAL) [place] MULTIVITAMI Yes Take by [facility] N ORAL 5-27 mouth. ity of 17:32: [place] [address] Medical [place] multivitami Yes Take by [facility] vers n with 5-27 mouth. ity of minerals 17:32: [place] (HAIR,SKIN 10 Medical AND NAILS Branch ORAL) Lactobacill Yes Take by [facility] vers us 5-27 mouth. ity of acidophilus 17:32: [place] (PROBIOTIC 10 Medical ORAL) [place] MULTIVITAMI Yes Take by [facility] N ORAL 5-27 mouth. ity of 17:32: [place] [address] Medical Branch multivitami Yes Take by [facility] n with 5-27 mouth. ity of minerals 17:32: [place] (HAIR,SKIN 10 Medical AND NAILS Branch ORAL) Lactobacill Yes Take by [facility] vers us 5-27 mouth. ity of acidophilus 17:32: [place] (PROBIOTIC 10 Medical ORAL) [place] MULTIVITAMI Yes Take by [facility] vers N ORAL 5-27 mouth. ity of 17:32: [place] [address] Medical Branch multivitami Yes Take by [facility] vers n with 5-27 mouth. ity of minerals 17:32: [place] (HAIR,SKIN 10 Medical AND NAILS Branch ORAL) Lactobacill 2020-0 Yes Take by [facility] vers us 5-27 mouth. ity of acidophilus 17:32: [place] (PROBIOTIC 10 Medical ORAL) Branch MULTIVITAMI 0 [...] 17:32: [place] (PROBIOTIC 10 Medical ORAL) Branch MULTIVITAMI 0 Yes Take by [facility] N ORAL 5-27 mouth. ity of 17:32: [place] [address] Medical Branch multivitami 0 Yes Take by [facility] vers n with 5-27 mouth. ity of minerals 17:32: [place] (HAIR,SKIN 10 Medical AND NAILS Branch ORAL) Lactobacill 0 Yes Take by [facility] vers us 5-27 mouth. ity of acidophilus 17:32: [place] (PROBIOTIC 10 Medical ORAL) [place] MULTIVITAMI 0 Yes Take by [facility] vers N ORAL 5-27 mouth. ity of 17:32: [place] [address] Medical Branch multivitami 0 Yes Take by [...] 5-02 tablet by ity of 00:00: mouth (two) Medical times Branch daily with meals. glimepiride 2021-0 Yes 4mg Take 1 [facility] ers 4 mg tablet 5-02 tablet by ity of 00:00: mouth (two) Medical times Branch daily with meals. glimepiride 2021-0 Yes 4mg Take 1 [facility] ers 4 mg tablet 5-02 tablet by ity of 00:00: mouth (two) Medical times Branch daily with meals. glimepiride 2021-0 Yes 4mg Take 1 [facility] ers 4 mg tablet 5-02 tablet by ity of 00:00: mouth (two) Medical times Branch daily with meals. glimepiride 2021-0 Yes 4mg Take 1 [facility] ers 4 mg tablet 5-02 tablet by ity of 00:00: mouth (two) Medical times Branch daily with meals. glimepiride 2021-0 Yes 4mg Take 1 [facility] ers 4 mg tablet 5-02 tablet by ity of 00:00: mouth (two) Medical times Branch daily with meals. glimepiride 2021-0 Yes 4mg Take 1 [facility] ers 4 mg tablet 5-02 tablet by ity of 00:00: mouth (two) Medical times Branch daily with meals. glimepiride 2021-0 Yes 4mg Take 1 [facility] ers 4 mg tablet 5-02 tablet by ity of 00:00: mouth (two) Medical times Branch daily with meals. glimepiride 2021-0 Yes 4mg Take 1 [facility] ers 4 mg tablet 5-02 tablet by ity of 00:00: mouth (two) Medical times Branch daily with meals. glimepiride 2021-0 Yes 4mg Take 1 [facility] ers 4 mg tablet 5-02 tablet by ity of 00:00: mouth (two) Medical times Branch daily with meals. fenofibrate 2020-0 Yes 134mg Take 1 Uni vers micronized 4-30 capsule by ity of 134 mg 00:00: mouth capsule daily. Medical Branch metFORMIN 2021-0 Yes [id number] 1000mg Take 1 [facility] 1,000 mg 4-30 tablet by ity of tablet 00:00: mouth 2 (two) Medical times Branch daily with meals. blood sugar 0 Yes [id number] Use daily [facility] diagnostic 4-30 Dx E11.65 ity of (ONETOUCH 00:00: [place] VERIO TEST 00 Medical STRIPS) Branch strip lancets 0 Yes [id number] Use daily [facility] (ONE TOUCH 4-30 Dx E11.65 ity of [place]) 33 00:00: [place] [facility] 00 Medical Branch gabapentin Yes [id number] 600mg Take 1 [facility] 600 mg 4-30 tablet by ity of tablet 00:00: mouth 2 (two) Medical times Branch daily. lisinopriL Yes [id number] 2.5mg Take 1 [facility] 2.5 mg 4-30 tablet by ity of tablet 00:00: mouth 00 daily. Medical Branch insulin Yes [id number] 35U inject 35 [facility] degludec 4-30 Units ity of (TRESIBA 00:[place]: [place]LE[place] 00 skin 2 Medical U-100) 100 (two) Branch unit/mL (3 times mL) InPn daily. atorvastati Yes 40mg Take 1 Univ ers n 40 mg 4-30 tablet by ity of tablet 00:00: mouth at [place] 00 bedtime. Medical Branch fenofibrate 0 Yes 134mg Take 1 Uni vers micronized 4-30 capsule by ity of 134 mg 00:00: mouth [place] capsule 00 daily. Medical Branch metFORMIN Yes [id number] 1000mg Take 1 [facility] 1,000 mg 4-30 tablet by ity of tablet 00:00: mouth 2 [place] (two) Medical times Branch daily with meals. blood sugar 0 Yes [id number] Use daily [facility] diagnostic 4-30 Dx E11.65 ity of (ONETOUCH 00:00: [place] VERIO TEST 00 Medical STRIPS) Branch strip lancets 0 Yes [id number] Use daily [facility] (ONE TOUCH 4-30 Dx E11.65 ity of [place]) 33 00:00: [place] gauge Misc 00 Medical Branch gabapentin 2020-0 Yes [id number] 600mg Take 1 [facility] 600 mg 4-30 tablet by ity of tablet 00:00: mouth 2 [place] 00 (two) Medical times Branch daily. lisinopriL Yes [id number] 2.5mg Take 1 [facility] 2.5 mg 4-30 tablet by ity of tablet 00:00: mouth [place] 00 daily. Medical Branch insulin Yes [id number] 35U inject 35 [facility] degludec 4-30 Units [...] ity of 134 mg 00:00: mouth [place] [facility] 00 daily. Medical Branch metFORMIN Yes [id number] 1000mg Take 1 [facility] 1,000 mg 4-30 tablet by ity of tablet 00:00: mouth 2 [place] 00 (two) Medical times Branch daily with meals. blood sugar Yes [id number] Use daily [facility] diagnostic 4-30 Dx E11.65 ity of (ONETOUCH 00:00: [place] VERIO TEST 00 Medical STRIPS) Branch strip lancets Yes [id number] Use daily Univers (ONE TOUCH 4-30 Dx E11.65 ity of [place]) 33 00:00: [place] gauge Misc 00 Medical Branch gabapentin Yes [id number] 600mg Take 1 [facility] 600 mg 4-30 tablet by ity of tablet 00:00: mouth 2 [place] 00 (two) Medical times Branch daily. lisinopriL Yes [id number] 2.5mg Take 1 [facility] 2.5 mg 4-30 tablet by ity of tablet 00:00: mouth [place] 00 daily. Medical Branch insulin Yes [id number] 35U inject 35 [facility] degludec 4-30 Units [...] capsule 00 daily. Medical Branch metFORMIN Yes [id number] 1000mg Take 1 [facility] 1,000 mg 4-30 tablet by ity of tablet 00:00: mouth 2 [place] 00 (two) Medical times Branch daily with meals. blood sugar Yes [id number] Use daily [facility] diagnostic 4-30 Dx E11.65 ity of (ONETOUCH 00:00: [place] VERIO TEST 00 Medical STRIPS) Branch strip lancets Yes [id number] Use daily [facility] (ONE TOUCH 4-30 Dx E11.65 ity of [place]) 33 00:00: [place] gauge Misc 00 Medical Branch gabapentin Yes [id number] 600mg Take 1 [facility] 600 mg 4-30 tablet by ity of tablet 00:00: mouth 2 [place] (two) Medical times Branch daily. lisinopriL Yes [id number] 2.5mg Take 1 [facility] 2.5 mg 4-30 tablet by ity of tablet 00:00: mouth [place] 00 daily. Medical Branch insulin Yes [id number] 35U inject 35 [facility] degludec 4-30 Units [...] capsule 00 daily. Medical Branch metFORMIN Yes [id number] 1000mg Take 1 [facility] 1,000 mg 4-30 tablet by ity of tablet 00:00: mouth 2 [place] (two) Medical times Branch daily with meals. blood sugar Yes [id number] Use daily [facility] diagnostic 4-30 Dx E11.65 ity of (ONETOUCH 00:00: [place] VERIO TEST 00 Medical STRIPS) Branch strip lancets Yes [id number] Use daily Univers (ONE TOUCH 4-30 Dx E11.65 ity of [place]) 33 00:00: [facility] Medical Branch gabapentin 0 Yes [id number] 600mg Take 1 [facility] 600 mg 4-30 tablet by ity of tablet 00:00: mouth 2 [place] (two) Medical times Branch daily. lisinopriL Yes [id number] 2.5mg Take 1 Univers 2.5 mg 4-30 tablet by ity of tablet 00:00: mouth 00 daily. Medical Branch insulin Yes [id number] 35U inject 35 [facility] degludec 4-30 Units [...] ity of 134 mg 00:00: mouth [place] [facility] 00 daily. Medical Branch metFORMIN Yes [id number] 1000mg Take 1 [facility] 1,000 mg 4-30 tablet by ity of tablet 00:00: mouth [place] (two) Medical times Branch daily with meals. blood sugar Yes [id number] Use daily [facility] diagnostic 4-30 Dx E11.65 ity of (ONETOUCH 00:00: [place] VERIO TEST 00 Medical STRIPS) Branch strip lancets Yes [id number] Use daily Univers (ONE TOUCH 4-30 Dx E11.65 ity of [place]) 33 00:00: [facility] Medical Branch gabapentin 0 Yes [id number] 600mg Take 1 [facility] 600 mg 4-30 tablet by ity of tablet 00:00: mouth 2 [place] (two) Medical times Branch daily. lisinopriL 0 Yes [id number] 2.5mg Take 1 [facility] 2.5 mg 4-30 tablet by ity of tablet 00:00: mouth [place] 00 daily. Medical Branch insulin Yes [id number] 35U inject 35 [facility] degludec 4-30 Units [...] ity of 134 mg 00:00: mouth [place] [facility] 00 daily. Medical Branch metFORMIN Yes [id number] 1000mg Take 1 [facility] 1,000 mg 4-30 tablet by ity of tablet 00:00: mouth 2 [place] 00 (two) Medical times Branch daily with meals. blood sugar Yes [id number] Use daily [facility] diagnostic 4-30 Dx E11.65 ity of (ONETOUCH 00:00: [place] VERIO TEST 00 Medical STRIPS) Branch strip lancets Yes [id number] Use daily Univers (ONE TOUCH 4-30 Dx E11.65 ity of [place]) 33 00:00: [place] gauge Misc 00 Medical Branch gabapentin Yes [id number] 600mg Take 1 [facility] 600 mg 4-30 tablet by ity of tablet 00:00: mouth 2 [place] 00 (two) Medical times Branch daily. lisinopriL Yes [id number] 2.5mg Take 1 [facility] 2.5 mg 4-30 tablet by ity of tablet 00:00: mouth [place] 00 daily. Medical Branch insulin Yes [id number] 35U inject 35 [facility] degludec 4-30 Units [...] [place] capsule 00 daily. Medical Branch metFORMIN 2020-0 Yes [id number] 1000mg Take 1 [facility] 1,000 mg 4-30 tablet by ity of tablet 00:00: mouth 2 (two) Medical times Branch daily with meals. blood sugar 2020-0 Yes [id number] Use daily [facility] diagnostic 4-30 Dx E11.65 ity of (ONETOUCH 00:00: [place] VERIO TEST 00 Medical STRIPS) Branch strip lancets 2020-0 Yes [id number] Use daily Univers (ONE TOUCH 4-30 Dx E11.65 ity of [place]) 33 00:00: [place] [facility] 00 Medical Branch gabapentin 2020-0 Yes [id number] 600mg Take 1 [facility] 600 mg 4-30 tablet by ity of tablet 00:00: mouth 2 (two) Medical times Branch daily. lisinopriL 2020-0 Yes [id number] 2.5mg Take 1 [facility] 2.5 mg 4-30 tablet by ity of tablet 00:00: mouth [place] 00 daily. Medical Branch fenofibrate 2020-0 Yes 134mg Take 1 Uni vers micronized 4-30 capsule by ity of 134 mg 00:00: mouth [place] capsule 00 daily. Medical Branch metFORMIN 2020-0 Yes [id number] 1000mg Take 1 [facility] 1,000 mg 4-30 tablet by ity of tablet 00:00: mouth 2 (two) Medical times Branch daily with meals. blood sugar 2020-0 Yes [id number] Use daily [facility] diagnostic 4-30 Dx E11.65 ity of (ONETOUCH 00:00: [place] VERIO TEST 00 Medical STRIPS) Branch strip lancets 2020-0 Yes [id number] Use daily Univers (ONE TOUCH 4-30 Dx E11.65 ity of [place]) 33 00:00: [place] [facility] 00 Medical Branch gabapentin 2020-0 Yes [id number] 600mg Take 1 [facility] 600 mg 4-30 tablet by ity of tablet 00:00: mouth 2 [place] (two) Medical times Branch daily. lisinopriL 2020-0 Yes [id number] 2.5mg Take 1 [facility] 2.5 mg 4-30 tablet by ity of tablet 00:00: mouth [place] 00 daily. Medical Branch fenofibrate 2021-0 Yes 134mg Take 1 Uni vers micronized 4-30 capsule by ity of 134 mg 00:00: mouth [place] capsule 00 daily. Medical Branch metFORMIN Yes [id number] 1000mg Take 1 [facility] 1,000 mg 4-30 tablet by ity of tablet 00:00: mouth 2 [place] 00 (two) Medical times Branch daily with meals. blood sugar Yes [id number] Use daily [facility] diagnostic 4-30 Dx E11.65 ity of (ONETOUCH 00:00: [place] VERIO TEST 00 Medical STRIPS) Branch strip lancets Yes [id number] Use daily Univers (ONE TOUCH 4-30 Dx E11.65 ity of [place]) 33 00:00: [place] gauge Misc 00 Medical Branch gabapentin Yes [id number] 600mg Take 1 [facility] 600 mg 4-30 tablet by ity of tablet 00:00: mouth 2 [place] 00 (two) Medical times Branch daily. lisinopriL Yes [id number] 2.5mg Take 1 [facility] 2.5 mg 4-30 tablet by ity of tablet 00:00: mouth [place] 00 daily. Medical Branch insulin 2022- No [id number] 35U inject 35 [facility] degludec 4-30 02-20 Units ity of (TRESIBA 00:00: 00:00 under the [place] FLEXTOUCH 00 :00 skin 2 Medical U-100) 100 (two) Branch unit/mL (3 times mL) InPn daily. atorvastati 2022- No 40mg Take 1 Uni vers n 40 mg 4-30 02-20 tablet by ity of tablet 00:00: 00:00 mouth at [place] 00 :00 bedtime. Medical Branch glimepiride 0 No 1mg 4 mg tablet [...] lisinopril 1-0 No 1mg 5 mg tablet 318 00:00: 00 glimepiride 1-0 No 1mg 2 mg tablet 318 00:00: 00 metformin 1-0 No 1mg 1,000 [...] 100 mg 1-28 capsule 00:00: 00 fluconazole 1-0 No mg 150 mg 1-28 tablet 00:00: 00 metronidazo 1-0 No 1mg le 500 mg 1-28 tablet 00:00: 00 Macrobid 1-0 No 1mg 100 mg 1-28 capsule 00:00: 00 fluconazole 1-0 No mg 150 mg 1-28 tablet 00:00: 00 metronidazo 1-0 No 1mg le 500 mg 1-28 tablet 00:00: 00 Macrobid 1-0 No 1mg 100 mg 1-28 capsule 00:00: [...] tablet 00:00: 00 Victoza 2019- No (18 3-Chritsofer 0.6 2-23 mg/3 mg/0.1 mL 00:00: mL) [...] 5 mg tablet 2-04 00:00: 00 glimepiride 2020- No 1mg 1 mg tablet 2-04 00:00: [...] 1mg 600 mg 0-13 tablet 00:00: 00 gabapentin 2020-0 No 1mg [...] Xenical 120 2020-0 No 1mg mg capsule 8- 00:00: 00 hydrochloro 2020-0 No 1mg thiazide [...] 00 gabapentin 2020-0 No 1mg 600 mg 8 tablet 00:00: 00 gabapentin 2020-0 No 1mg [...] No 1mg mg capsule 8 00:00: 00 metformin 2020-0 No 1mg [...] 00 metformin 2020-0 No 1mg 1,000 mg 03-10 tablet 00:00: 00 glimepiride 2020-0 No 1mg 1 mg tablet 03-10 00:00: 00 atorvastati 2020-0 No 1mg n 40 mg 8- tablet 00:00: 00 atorvastati 2020-0 No 1mg n 40 mg 8- tablet 00:00: 00 Victoza 2020-0 No (18 [...] Take by Met hodi SUNNY/FA/GUAR 5-14 mouth. [facility] 11:53: Hospita (ONE-A-DAY 29 l WOMEN'S ACTIVE ORAL) MV,CA,MIN/I 2020-0 Yes Take by Met hodi SUNNY/FA/GUAR 5-14 mouth. [facility] 11:53: Hospita (ONE-A-DAY 29 l WOMEN'S ACTIVE ORAL) MV,CA,MIN/I 2020-0 Yes Take by Met hodi SUNNY/FA/GUAR 5-14 mouth. [facility] 11:53: Hospita (ONE-A-DAY 29 l WOMEN'S ACTIVE ORAL) MV,CA,MIN/I 2020-0 Yes Take by Met hodi SUNNY/FA/GUAR 5-14 mouth. [facility] 11:53: Hospita (ONE-A-DAY 29 l WOMEN'S ACTIVE ORAL) MV,CA,MIN/I 2020-0 Yes Take by Met hodi SUNNY/FA/GUAR 5-14 mouth. [facility] 11:53: Hospita (ONE-A-DAY 29 l WOMEN'S ACTIVE ORAL) MV,CA,MIN/I 2020-0 Yes Take by Met hodi SUNNY/FA/GUAR 5-14 mouth. [facility] 11:53: Hospita (ONE-A-DAY 29 l WOMEN'S ACTIVE ORAL) MV,CA,MIN/I 2020-0 Yes Take by Met hodi SUNNY/FA/GUAR 5-14 mouth. [facility] 11:53: Hospita (ONE-A-DAY 29 l WOMEN'S ACTIVE ORAL) MV,CA,MIN/I 2020-0 Yes Take by Met hodi SUNNY/FA/GUAR 5-14 mouth. [facility] 11:53: Hospita (ONE-A-DAY 29 l WOMEN'S ACTIVE ORAL) MV,CA,MIN/I 2020-0 Yes Take by Met hodi SUNNY/FA/GUAR 5-14 mouth. [facility] 11:53: Hospita (ONE-A-DAY 29 l WOMEN'S ACTIVE ORAL) MV,CA,MIN/I 2020-0 Yes Take by Met hodi SUNNY/FA/GUAR 5-14 mouth. [facility] 11:53: Hospita (ONE-A-DAY 29 l WOMEN'S ACTIVE ORAL) MV,CA,MIN/I 2020-0 Yes Take by Met hodi SUNNY/FA/GUAR 5-14 mouth. [facility] 11:53: Hospita (ONE-A-DAY 29 l WOMEN'S ACTIVE ORAL) MV,CA,MIN/I 2020-0 Yes Take by Met hodi SUNNY/FA/GUAR 5-14 mouth. [facility] 11:53: Hospita (ONE-A-DAY 29 l WOMEN'S ACTIVE ORAL) MV,CA,MIN/I 2020-0 Yes Take by Met hodi SUNNY/FA/GUAR 5-14 mouth. [facility] 11:53: Hospita (ONE-A-DAY 29 l WOMEN'S ACTIVE ORAL) MV,CA,MIN/I 2020-0 Yes Take by Met hodi SUNNY/FA/GUAR 5-14 mouth. [facility] 11:53: Hospita (ONE-A-DAY 29 l WOMEN'S ACTIVE ORAL) MV,CA,MIN/I 2020-0 Yes Take by Met hodi SUNNY/FA/GUAR 5-14 mouth. [facility] 11:53: Hospita (ONE-A-DAY 29 l WOMEN'S ACTIVE [...] tablet 5-12 00:00: 00 nystatin-tr 2020-0 Yes [id number] Q.25D Apply Methodi iamcinolone 4-[address] (MYCOLOG 00:00: 4 (four) Hospi ta II) 00 times a l 100,000-0.1 day as unit/g-% needed cream (vaginal itching or infection) . To outer vagina nystatin-tr 2020-0 Yes [id number] Q.25D Apply [facility] iamcinolone 4-[address] (MYCOLOG 00:00: 4 (four) Hospi ta II) 00 times a l 100,000-0.1 day as unit/g-% needed cream (vaginal itching or infection) . To outer vagina nystatin-tr 2020-0 Yes [id number] Q.25D Apply [facility]i iamcinolone 4-[address] (MYCOLOG 00:00: 4 (four) Hospi ta II) 00 times a l 100,000-0.1 day as unit/g-% needed cream (vaginal itching or infection) . To outer vagina nystatin-tr 2020-0 Yes [id number] Q.25D Apply [facility]i iamcinolone 4-[address] (MYCOLOG 00:00: 4 (four) Hospi ta II) 00 times a l 100,000-0.1 day as unit/g-% needed cream (vaginal itching or infection) . To outer vagina nystatin-tr 2020-0 Yes [id number] Q.25D Apply [facility] iamcinolone 4-[address] (MYCOLOG 00:00: 4 (four) Hospi ta II) 00 times a l 100,000-0.1 day as unit/g-% needed cream (vaginal itching or infection) . To outer vagina nystatin-tr 2020-0 Yes [id number] Q.25D Apply [facility]i iamcinolone 4-[address] (MYCOLOG 00:00: 4 (four) Hospi ta II) 00 times a l 100,000-0.1 day as unit/g-% needed cream (vaginal itching or infection) . To outer vagina nystatin-tr 2020-0 Yes [id number] Q.25D Apply [facility] iamcinolone 4-[address] (MYCOLOG 00:00: 4 (four) Hospi ta II) 00 times a l 100,000-0.1 day as unit/g-% needed cream (vaginal itching or infection) . To outer vagina nystatin-tr 2020-0 Yes [id number] Q.25D Apply [facility]i iamcinolone 4-[address] (MYCOLOG 00:00: 4 (four) Hospi ta II) 00 times a l 100,000-0.1 day as unit/g-% needed cream (vaginal itching or infection) . To outer vagina nystatin-tr 2020-0 Yes [id number] Q.25D Apply [facility]i iamcinolone 4-[address] (MYCOLOG 00:00: 4 (four) Hospi ta II) 00 times a l 100,000-0.1 day as unit/g-% needed cream (vaginal itching or infection) . To outer vagina nystatin-tr 2020-0 Yes [id number] Q.25D Apply [facility] iamcinolone 4-[address] (MYCOLOG 00:00: 4 (four) Hospi ta II) 00 times a l 100,000-0.1 day as unit/g-% needed cream (vaginal itching or infection) . To outer vagina nystatin-tr 2020-0 Yes [id number] Q.25D Apply [facility] iamcinolone 4-[address] (MYCOLOG 00:00: 4 (four) Hospi ta II) 00 times a l 100,000-0.1 day as unit/g-% needed cream (vaginal itching or infection) . To outer vagina nystatin-tr 2020-0 Yes [id number] Q.25D Apply [facility] iamcinolone 4-[address] (MYCOLOG 00:00: 4 (four) Hospi ta II) 00 times a l 100,000-0.1 day as unit/g-% needed cream (vaginal itching or infection) . To outer vagina nystatin-tr 2020-0 Yes [id number] Q.25D Apply [facility] iamcinolone 4-[address] (MYCOLOG 00:00: 4 (four) Hospi ta II) 00 times a l 100,000-0.1 day as unit/g-% needed cream (vaginal itching or infection) . To outer vagina nystatin-tr 2020-0 Yes [id number] Q.25D Apply [facility] iamcinolone 4-[address] (MYCOLOG 00:00: 4 (four) Hospi ta II) 00 times a l 100,000-0.1 day as unit/g-% needed cream (vaginal itching or infection) . To outer vagina nystatin-tr 2020-0 Yes [id number] Q.25D Apply [facility] iamcinolone 4-[address] [...] subcutaneou s pen injector HEParin 2020-0 Yes [id number] Q7D Meth ally (porcine) 3-24 st injection 17:00: Hospita 20,000 00 l Units HEParin 2020-0 Yes [id number] Q7D Meth ally (porcine) 3-24 st injection 17:00: Hospita 20,000 00 l Units HEParin 2020-0 Yes [id number] Q7D Meth ally (porcine) 3-24 st injection 17:00: Hospita 20,000 00 l Units HEParin 2020-0 Yes [id number] Q7D Meth ally (porcine) 3-24 st injection 17:00: Hospita 20,000 00 l Units HEParin 2020-0 Yes [id number] Q7D Meth ally (porcine) 3-24 st injection 17:00: Hospita 20,000 00 l Units HEParin 2020-0 Yes [id number] Q7D Meth ally (porcine) 3-24 st injection 17:00: Hospita 20,000 00 l Units HEParin 2020-0 Yes [id number] Q7D Meth ally (porcine) 3-24 st injection 17:00: Hospita 20,000 00 l Units HEParin 2020-0 Yes [id number] Q7D Meth ally (porcine) 3-24 st injection 17:00: Hospita 20,000 00 l Units HEParin 2020-0 Yes [id number] Q7D Meth ally (porcine) 3-24 st injection 17:00: Hospita 20,000 00 l Units HEParin 2020-0 Yes [id number] Q7D Meth ally (porcine) 3-24 st injection 17:00: Hospita 20,000 00 l Units HEParin 2020-0 Yes [id number] Q7D Meth ally (porcine) 3-24 st injection 17:00: Hospita 20,000 00 l Units HEParin 2020-0 Yes [id number] Q7D Meth ally (porcine) 3-24 st injection 17:00: Hospita 20,000 00 l Units HEParin 2020-0 Yes [id number] Q7D Meth ally (porcine) 3-24 st injection 17:00: Hospita 20,000 00 l Units HEParin 2020-0 Yes [id number] Q7D Meth ally (porcine) 3-24 st injection 17:00: Hospita 20,000 00 l Units HEParin 2020-0 Yes [id number] Q7D Meth ally (porcine) 3-24 st injection 17:00: Hospita 20,000 00 l Units conjugated 2020-0 Yes [id number] Apply 0.5 [facility] estrogens 3-[address] (Premarin) 00:00: vaginally Ho spita 0.625 00 either l mg/gram internally vaginal (applicato cream r) or with finger to outer vagina twice weekly at night conjugated 2020-0 Yes [id number] Apply 0.5 [facility] estrogens 3-[address] (Premarin) 00:00: vaginally [facility] 0.625 00 either l mg/gram internally vaginal (applicato cream r) or with finger to outer vagina twice weekly at night conjugated 2020-0 Yes [id number] Apply 0.5 [facility] estrogens 3-[address] (Premarin) 00:00: vaginally [facility] 0.625 00 either l mg/gram internally vaginal (applicato cream r) or with finger to outer vagina twice weekly at night conjugated 2020-0 Yes [id number] Apply 0.5 [facility] estrogens 3-[address] (Premarin) 00:00: vaginally [facility] 0.625 00 either l mg/gram internally vaginal (applicato cream r) or with finger to outer vagina twice weekly at night conjugated 2020-0 Yes [id number] Apply 0.5 [facility] estrogens 3-[address] (Premarin) 00:00: vaginally [facility] 0.625 00 either l mg/gram internally vaginal (applicato cream r) or with finger to outer vagina twice weekly at night conjugated 2020-0 Yes [id number] Apply 0.5 [facility] estrogens 3-[address] (Premarin) 00:00: vaginally [facility] 0.625 00 either l mg/gram internally vaginal (applicato cream r) or with finger to outer vagina twice weekly at night conjugated 2020-0 Yes [id number] Apply 0.5 [facility] estrogens 3-[address] (Premarin) 00:00: vaginally [facility] 0.625 00 either l mg/gram internally vaginal (applicato cream r) or with finger to outer vagina twice weekly at night conjugated 2020-0 Yes [id number] Apply 0.5 [facility] estrogens 3-[address] (Premarin) 00:00: vaginally [facility] 0.625 00 either l mg/gram internally vaginal (applicato cream r) or with finger to outer vagina twice weekly at night conjugated 2020-0 Yes [id number] Apply 0.5 [facility] estrogens 3-[address] (Premarin) 00:00: vaginally [facility] 0.625 00 either l mg/gram internally vaginal (applicato cream r) or with finger to outer vagina twice weekly at night conjugated 2020-0 Yes [id number] Apply 0.5 [facility] estrogens 3-[address] (Premarin) 00:00: vaginally [facility] 0.625 00 either l mg/gram internally vaginal (applicato cream r) or with finger to outer vagina twice weekly at night conjugated 2020-0 Yes [id number] Apply 0.5 [facility] estrogens 3-[address] (Premarin) 00:00: vaginally [facility] 0.625 00 either l mg/gram internally vaginal (applicato cream r) or with finger to outer vagina twice weekly at night conjugated 2020-0 Yes [id number] Apply 0.5 [facility] estrogens 3-[address] (Premarin) 00:00: vaginally [facility] 0.625 00 either l mg/gram internally vaginal (applicato cream r) or with finger to outer vagina twice weekly at night conjugated 2020-0 Yes [id number] Apply 0.5 [facility] estrogens 3-[address] (Premarin) 00:00: vaginally [facility] 0.625 00 either l mg/gram internally vaginal (applicato cream r) or with finger to outer vagina twice weekly at night conjugated 2020-0 Yes [id number] Apply 0.5 [facility] estrogens 3-[address] (Premarin) 00:00: vaginally [facility] 0.625 00 either l mg/gram internally vaginal (applicato cream r) or with finger to outer vagina twice weekly at night conjugated 2020-0 Yes [id number] Apply 0.5 [facility] estrogens 3-[address] (Premarin) 00:00: vaginally [facility] 0.625 00 either l mg/gram internally vaginal (applicato cream r) or with finger to outer vagina twice weekly at night amb custom Yes [facility] compound 3-[address] 00:00: cream: 6% Hospita 00 gabapentin l , 2% Lidocaine, 2 % baclofen in water washable based. Apply 0.5 gram to outer vagina once or twice daily. amb custom Yes [facility] compound 3-[address] 00:00: cream: 6% Hospita 00 gabapentin l , 2% Lidocaine, 2 % baclofen in water washable based. Apply 0.5 gram to outer vagina once or twice daily. amb custom 2020-0 Yes [facility] compound 3- vaginal st 00:00: cream: 6% Hospita 00 gabapentin l , 2% Lidocaine, 2 % baclofen in water washable based. Apply 0.5 gram to outer vagina once or twice daily. amb custom 2020-0 Yes [facility] compound [address] 00:00: cream: 6% Hospita 00 gabapentin l , 2% Lidocaine, 2 % baclofen in water washable based. Apply 0.5 gram to outer vagina once or twice daily. amb custom 2020-0 Yes [facility] compound 09-[address] 00:00: cream: 6% Hospita 00 gabapentin l , 2% Lidocaine, 2 % baclofen in water washable based. Apply 0.5 gram to outer vagina once or twice daily. amb custom 2020-0 Yes [facility] compound 09-[address] 00:00: cream: 6% Hospita 00 gabapentin l , 2% Lidocaine, 2 % baclofen in water washable based. Apply 0.5 gram to outer vagina once or twice daily. amb custom 2020-0 Yes [facility] compound 09-[address] 00:00: cream: 6% Hospita 00 gabapentin l , 2% Lidocaine, 2 % baclofen in water washable based. Apply 0.5 gram to outer vagina once or twice daily. amb custom 2020-0 Yes [facility] compound 3- vaginal st 00:00: cream: 6% Hospita 00 gabapentin l , 2% Lidocaine, 2 % baclofen in water washable based. Apply 0.5 gram to outer vagina once or twice daily. amb custom 2020-0 Yes [facility] compound 3- vaginal st 00:00: cream: 6% Hospita 00 gabapentin l , 2% Lidocaine, 2 % baclofen in water washable based. Apply 0.5 gram to outer vagina once or twice daily. amb custom 2020-0 Yes Compouned [facility] arethaodi compound [address] 00:00: cream: [...] once or twice daily. FREESTYLE 2020-0 Yes [id number] 1{each} 1 Each [facility] BRENDA 14 3-03 every 14 ity of DAY SENSOR 00:00: [place] [facility] days. [facility] FREESTYLE 2020-0 Yes [id number] 1{each} 1 Each [facility] BRENDA 14 3-03 daily. ity of DAY READER 00:00: [place] [address] Medical Branch FREESTYLE 2020-0 Yes [id number] 1{each} 1 Each [facility] BRENDA 14 3-03 every 14 ity of DAY SENSOR 00:00: ([place]teen[place] 00 days. [facility] FREESTYLE 2020-0 Yes [id number] 1{each} 1 Each [facility] BRENDA 14 3-03 daily. ity of DAY READER 00:00: [place] [facility] 00 Medical Branch FREESTYLE 2020-0 Yes [id number] 1{each} 1 Each [facility] BRENDA 14 3-03 every 14 ity of DAY SENSOR 00:00: ([place]teen[place] 00 days. [facility] FREESTYLE 2020-0 Yes [id number] 1{each} 1 Each [facility] BRENDA 14 3-03 daily. ity of DAY READER 00:00: [place] [facility] [place] [facility] FREESTYLE 2020-0 Yes [id number] 1{each} 1 Each [facility] BRENDA 14 3-03 every 14 ity of DAY SENSOR 00:00: ([place]teen[place] 00 days. [facility] FREESTYLE 2020-0 Yes [id number] 1{each} 1 Each [facility] BRENDA 14 3-03 daily. ity of DAY READER 00:00: [place] [facility] FREESTYLE 2020-0 Yes [id number] 1{each} 1 Each [facility] BRENDA 14 3-03 every 14 ity of DAY SENSOR 00:00: ([place]teen[place] Kit 00 days. [facility] FREESTYLE 2020-0 Yes [id number] 1{each} 1 Each [facility] BRENDA 14 3-03 daily. ity of DAY READER 00:00: [place] [facility] FREESTYLE 2020-0 Yes [id number] 1{each} 1 Each [facility] BRENDA 14 3-03 every 14 ity of DAY SENSOR 00:00: ([place]teen[place] 00 days. [facility] FREESTYLE 2020-0 Yes [id number] 1{each} 1 Each [facility] BRENDA 14 3-03 daily. ity of DAY READER 00:00: [place] [facility] FREESTYLE 2020-0 Yes [id number] 1{each} 1 Each [facility] BRENDA 14 3-03 every 14 ity of DAY SENSOR 00:00: (fourteen[place] Kit 00 days. [facility] FREESTYLE 2020-0 Yes [id number] 1{each} 1 Each [facility] BRENDA 14 3-03 daily. ity of DAY READER 00:00: [place] [facility] [place] [facility] FREESTYLE 2020-0 Yes [id number] 1{each} 1 Each [facility] BRENDA 14 3-03 every 14 ity of DAY SENSOR 00:00: ([place]teen[place] Kit 00 days. [facility] FREESTYLE 2020-0 Yes [id number] 1{each} 1 Each [facility] BRENDA 14 3-03 daily. ity of DAY READER 00:00: [place] [address] Medical Branch FREESTYLE 2020-0 Yes [id number] 1{each} 1 Each [facility] BRENDA 14 3-03 every 14 ity of DAY SENSOR 00:00: ([place]teen[place] Kit 00 days. [facility] FREESTYLE 2020-0 Yes [id number] 1{each} 1 Each [facility] BRENDA 14 3-03 daily. ity of DAY READER 00:00: [place] [address] Medical Branch FREESTYLE 2020-0 Yes [id number] 1{each} 1 Each [facility] BRENDA 14 3-03 every 14 ity of DAY SENSOR 00:00: (fourteen[place] Kit 00 days. [facility] FREESTYLE 2020-0 Yes [id number] 1{each} 1 Each [facility] BRENDA 14 3-03 daily. ity of DAY READER 00:00: [place] [address] Medical Branch Ozempic 2020-0 No (5)/125 0.25 [...] Ozempic 2020-0 No (5)/125 0.25 mg or 2- -30(10) 0.5 mg (2 00:00: mg/1.5 mL) 00 subcutaneou s pen injector lisinopril 2020-0 No 1mg 5 mg tablet 2-19 00:00: 00 metformin 2020-0 No 1mg 1,000 mg 2-19 tablet 00:00: 00 atorvastati 2020-0 No 1mg n 40 mg 2-19 tablet 00:00: 00 Ozempic 2020-0 No (5)/125 0.25 mg or 2- -30(10) 0.5 mg (2 00:00: mg/1.5 mL) 00 subcutaneou s pen injector lisinopril 2020-0 No 1mg 5 mg tablet 2-19 00:00: 00 metformin 2020-0 No 1mg 1,000 mg 2-19 tablet 00:00: 00 atorvastati 2020-0 No 1mg n 40 mg 2-19 tablet 00:00: 00 Ozempic 2020-0 No (5)/125 0.25 mg or 2- -30(10) 0.5 mg (2 00:00: mg/1.5 mL) [...] tablet 2-30 00:00: 00 traMADol 2018-07 Yes [id number] 50mg Take 1 Uni vers (ULTRAM) 50 2-28 tablet by ity of mg tablet 00:00: mouth [place] 00 every 6 Medical (six) Branch hours as needed for Pain (scale 7-10). ondansetron 2018-07 Yes [id number] 4mg Take 1 Univers (ZOFRAN) 4 2-28 tablet by ity of mg tablet 00:00: mouth [place] 00 every 8 Medical (eight) Branch hours as needed for Nausea and Vomiting (N/V). ondansetron 2018-07 Yes [id number] 4mg Take 1 Univers (ZOFRAN) 4 2-28 tablet by ity of mg tablet 00:00: mouth [place] 00 every 8 Medical (eight) Branch hours as needed for Nausea and Vomiting (N/V). ondansetron 2018-07 Yes [id number] 4mg Take 1 Univers (ZOFRAN) 4 2-28 tablet by ity of mg tablet 00:00: mouth [place] 00 every 8 Medical (eight) Branch hours as needed for Nausea and Vomiting (N/V). ondansetron 2018-07 Yes [id number] 4mg Take 1 Univers (ZOFRAN) 4 2-28 tablet by ity of mg tablet 00:00: mouth [place] 00 every 8 Medical (eight) Branch hours as needed for Nausea and Vomiting (N/V). ondansetron 2018-07 Yes [id number] 4mg Take 1 Univers (ZOFRAN) 4 2-28 tablet by ity of mg tablet 00:00: mouth [place] 00 every 8 Medical (eight) Branch hours as needed for Nausea and Vomiting (N/V). ondansetron 2018-07 Yes [id number] 4mg Take 1 Univers (ZOFRAN) 4 2-28 tablet by ity of mg tablet 00:00: mouth [place] 00 every 8 Medical (eight) Branch hours as needed for Nausea and Vomiting (N/V). ondansetron 2018-07 Yes [id number] 4mg Take 1 Univers (ZOFRAN) 4 2-28 tablet by ity of mg tablet 00:00: mouth [place] 00 every 8 Medical (eight) Branch hours as needed for Nausea and Vomiting (N/V). ondansetron 2018-07- No [id number] 4mg Take 1 Univers (ZOFRAN) 4 2-28 02-16 tablet by ity of mg tablet 00:00: 00:00 mouth [place] 00 :00 every 8 Medical (eight) Branch hours as needed for Nausea and Vomiting (N/V). traMADol 2018-07- No [id number] 50mg Take 1 [facility] (ULTRAM) 50 [...] mg 2-19 tablet 00:00: 00 Contrave 8 2018- No 1mg mg-90 mg 2-19 tablet,exte 00:00: nded 00 release ibuprofen 2019-1 No 1mg 800 mg 2-19 tablet 00:00: 00 Contrave 8 2018- No 1mg mg-90 mg 2-19 tablet,exte 00:00: nded 00 release ibuprofen 2019-1 No 1mg 800 mg 2-19 tablet 00:00: 00 Contrave 8 2018- No 1mg mg-90 mg 2-19 tablet,exte 00:00: nded 00 release ibuprofen 2019-1 No 1mg 800 mg 2-19 tablet 00:00: 00 Contrave 8 2018- No 1mg mg-90 mg 2-19 tablet,exte 00:00: nded 00 release ibuprofen 2019-1 No 1mg 800 mg 2-19 tablet 00:00: 00 Contrave 8 2018- No 1mg mg-90 mg 2-19 tablet,exte 00:00: [...] 50 9-17 mg capsule 00:00: 00 hydrOXYzine 2018- Yes [id number] 10mg Take 1 Univers 10 mg 9-13 tablet by ity of tablet 00:00: mouth [place] 00 every 6 Medical (six) Branch hours. hydrOXYzine Yes [id number] 10mg Take 1 Univers 10 mg 9-13 tablet by ity of tablet 00:00: mouth [place] 00 every 6 Medical (six) Branch hours. hydrOXYzine Yes [id number] 10mg Take 1 Univers 10 mg 9-13 tablet by ity of tablet 00:00: mouth [place] 00 every 6 Medical (six) Branch hours. hydrOXYzine Yes [id number] 10mg Take 1 Univers 10 mg 9-13 tablet by ity of tablet 00:00: mouth [place] 00 every 6 Medical (six) Branch hours. hydrOXYzine 2018- Yes [id number] 10mg Take 1 Univers 10 mg 9-13 tablet by ity of tablet 00:00: mouth [place] 00 every 6 Medical (six) Branch hours. hydrOXYzine Yes [id number] 10mg Take 1 Univers 10 mg 9-13 tablet by ity of tablet 00:00: mouth [place] 00 every 6 Medical (six) Branch hours. hydrOXYzine Yes [id number] 10mg Take 1 Univers 10 mg 9-13 tablet by ity of tablet 00:00: mouth [place] 00 every 6 Medical (six) Branch hours. hydrOXYzine 2019-0 3- No [id number] 10mg Take 1 Univers 10 mg 9-13 02-16 tablet by ity of tablet 00:00: 00:00 mouth [place] 00 :00 every 6 Medical (six) Branch hours. mirtazapine [...] No 1mg tablet 08-08 00:00: 00 lisinopril 1 No 1mg 5 mg tablet 08-08 00:00: 00 Zofran 4 mg 1 No 1mg tablet 08-08 00:00: 00 lisinopril 1 No 1mg 5 mg tablet 08-08 00:00: 00 Zofran 4 mg 1 No 1mg tablet 08-08 00:00: 00 lisinopril 1 No 1mg 5 mg tablet 08-08 00:00: 00 Zofran 4 mg 1 No 1mg tablet 08-08 00:00: 00 lisinopril 1 No 1mg 5 mg tablet 08-08 00:00: 00 Zofran 4 mg 1 No 1mg tablet 08-08 00:00: 00 lisinopril 1 No 1mg 5 mg tablet 08-08 00:00: 00 Zofran 4 mg 1 No 1mg tablet 08-08 00:00: 00 lisinopril 1 No 1mg 5 mg tablet 08-08 00:00: 00 Zofran 4 mg 1 No 1mg tablet 08-08 00:00: 00 lisinopril 1 No 1mg 5 mg tablet 08-08 00:00: 00 Zofran 4 mg 1 No 1mg tablet 08-08 00:00: 00 lisinopril 1 No 1mg 5 mg tablet 08-08 00:00: [...] mg 9- capsule,ext 00:00: ended 00 release Lexapro 20 2018-0 No 1mg mg tablet 04-06 00:00: 00 Abilify 5 2018-0 No 1mg mg tablet 04-06 00:00: 00 trazodone 2018-0 No 12mg 100 mg 9-27 tablet 00:00: 00 trazodone 2018-0 No 12mg 100 mg 9-27 tablet 00:00: 00 Effexor XR 2018-0 No 1mg 75 mg 9- capsule,ext 00:00: ended 00 release Lexapro 20 [...] daily. [facility] tablet 00 l Lexapro 20 2017-0 No 15mg mg tablet 8-16 00:00: 00 [...] Abilify 5 2018-0 No 1mg mg tablet -21 00:00: 00 Vistaril 25 2018-0 No 1mg mg capsule 5- 00:00: 00 Lexapro 20 2018-0 No 1mg mg tablet 5-21 00:00: 00 Abilify 5 2018-0 No 1mg mg tablet 5- 00:00: 00 Vistaril 25 2018-0 No 1mg mg capsule 5- 00:00: 00 Lexapro 20 2018-0 No 1mg mg tablet -21 00:00: 00 Abilify 5 2018-0 No 1mg mg tablet - 00:00: 00 Vistaril 25 2018-0 No 1mg mg capsule 5- 00:00: 00 Lexapro 20 2018-0 No 1mg mg tablet - 00:00: 00 Abilify 5 2018-0 No 1mg mg tablet 5- 00:00: 00 Vistaril 25 2018-0 No 1mg mg capsule - 00:00: 00 Lexapro 20 2018-0 No 1mg mg tablet -21 00:00: 00 Abilify 5 2018-0 No 1mg mg tablet - 00:00: 00 Vistaril 25 2018-0 No 1mg mg capsule - 00:00: 00 Lexapro 20 2018-0 No 1mg mg tablet -21 00:00: 00 Abilify 5 2018-0 No 1mg mg tablet -21 00:00: 00 Vistaril 25 2018-0 No 1mg mg capsule 5-21 00:00: 00 Lexapro 20 2018-0 No 1mg mg tablet -21 00:00: 00 Abilify 5 2018-0 No 1mg mg tablet -21 00:00: 00 Vistaril 25 2018-0 No 1mg [...] No 1mg mg tablet -08 00:00: 00 Lexapro 20 2018-0 No 1mg [...] 1mg mg tablet 1- 00:00: 00 Abilify 2018-0 No 1mg mg tablet 1- 00:00: 00 Lexapro 20 2018-0 No 1mg mg tablet 1- 00:00: 00 Abilify 2018-0 No 1mg mg tablet 1- 00:00: 00 Lexapro 20 2018-0 No 1mg mg tablet 1- 00:00: 00 Abilify 2018-0 No 1mg mg tablet - 00:00: 00 Lexapro 20 2018-0 No 1mg mg tablet 1- 00:00: 00 Abilify 2017-0 No 1mg mg tablet - 00:00: 00 Lexapro 20 2018-0 No 1mg mg tablet - 00:00: 00 promethazin 2016- No 10mg/5 e-DM [...] 20 mg 2-04 tablet 00:00: 00 prednisone 2017-1 No 1mg 20 mg 2-04 tablet 00:00: 00 loratadine 2016- No 1mg 10 mg 2-04 tablet 00:00: 00 metformin 2016-1 No 1mg 1,000 mg 2-04 tablet 00:00: 00 promethazin 2016-1 No 10mg/5 e-DM 6.25 2-04 mL mg-15 mg/5 00:00: mL syrup loratadine 2016- No 1mg 10 mg 2-04 [...] 2mg 100 mg - tablet 00:00: 00 buspirone 2017-0 No 1mg [...] mg -14 tablet 00:00: 00 Abilify 5 2017-0 No [...] No 1mg mg tablet 9-14 00:00: 00 Abilify 5 2017-0 No 1mg [...] Abilify 5 2017-0 No 1mg mg tablet 622 00:00: 00 Lexapro 20 2017-0 No 1mg mg tablet 622 00:00: 00 buspirone 2017-0 No 1mg 15 mg 6-22 tablet 00:00: 00 trazodone 2017-0 No 2mg 100 mg 6-22 tablet 00:00: 00 Abilify 5 2017-0 No 1mg mg tablet 622 00:00: 00 Lexapro 20 2017-0 No 1mg mg tablet 622 00:00: 00 buspirone 2017-0 No 1mg 15 mg 6-22 tablet 00:00: 00 trazodone 2017-0 No 2mg 100 mg 6-22 tablet 00:00: 00 Abilify 5 2017-0 No 1mg mg tablet 622 00:00: 00 Lexapro 20 2017-0 No 1mg mg tablet 622 00:00: 00 buspirone 2017-0 No 1mg 15 [...] Abilify 5 2016-0 No 1mg mg tablet 4 00:00: 00 Lexapro 20 2017-0 No 15mg mg tablet 4 00:00: 00 trazodone 2017-0 No 1mg 150 mg 10-19 tablet 00:00: 00 Carvedilol 2017-0 2022- No [id number] 6.25mg Take 1 Andreea 6.25 MG 4-10 09-07 tablet by Raymond d oral Tab 00:00: 00:00 mouth 2 - 00 :00 times Externa daily l (with meals) MethIMAzole 2016-0 2022- No [id number] 10mg Take 1 Andreea 10 MG oral -10 09-07 tablet by Clay bold Tab 00:00: 00:00 mouth - 00 :00 daily Externa (with l breakfast) Lexapro 20 2017-0 No 15mg mg tablet 3 00:00: 00 Abilify 5 2016-0 No 1mg mg tablet 3 00:00: 00 [...] HCl 25 mg 2-08 tablet 00:00: 00 lify 2015-07 No 1mg mg tablet 2-08 00:00: 00 lify 2015-07 No 1mg mg tablet 2-08 00:00: [...] HCl 25 mg 2-08 tablet 00:00: 00 lify 2015-07 No 1mg mg tablet 2-08 00:00: [...] Lexapro 20 2015-07 No 1mg mg tablet 0-11 00:00: 00 trazodone 2015- No 51mg 100 mg 0-11 tablet 00:00: 00 Lexapro 20 2015-07 No 1mg mg tablet 0-11 00:00: 00 trazodone 2015- No 51mg 100 mg 0-11 tablet 00:00: 00 Lexapro 20 2015-07 No 1mg mg tablet 0-11 00:00: 00 trazodone 2015- No 51mg 100 mg 0-11 tablet 00:00: 00 Lexapro 20 2015-07 No 1mg mg tablet 0-11 00:00: 00 trazodone 2015- No 51mg 100 mg 0-11 tablet 00:00: 00 Lexapro 20 2015-07 No 1mg mg tablet 0-11 00:00: 00 trazodone 2015- No 51mg 100 mg 0-11 tablet 00:00: 00 Lexapro 20 2015-07 No 1mg mg tablet 0-11 00:00: 00 trazodone 2015- No 51mg 100 mg 0-11 tablet 00:00: 00 Lexapro 20 2015-07 No 1mg mg tablet 0-11 00:00: 00 trazodone 2015-07 No 51mg 100 mg 0-11 tablet 00:00: 00 Lexapro 20 2015-07 No 1mg mg tablet 0-11 00:00: 00 trazodone 2015- No 51mg 100 mg 0-11 tablet 00:00: 00 Lexapro 20 2015-07 No 1mg mg tablet 0-11 00:00: 00 trazodone 2015- No 51mg 100 mg 0-11 tablet 00:00: 00 Lexapro 20 2015-07 No 1mg mg tablet 0-11 00:00: 00 trazodone 2015- No 51mg 100 mg 0-11 tablet 00:00: 00 Lexapro 20 2015-07 No 1mg mg tablet 0-11 00:00: [...] mg capsule 10-16 00:00: 00 Vistaril 50 2015-0 No 1mg mg capsule 10-16 00:00: 00 [...] 4 mg tablet 07-14 00:00: 00 metformin 2015-0 No 1mg 1,000 mg 1-04 tablet 00:00: [...] mg 1-04 tablet 00:00: 00 Vistaril 50 1 No 1mg mg capsule 2- 00:00: 00 Vistaril 50 1 No 1mg mg capsule 2-14 00:00: 00 Vistaril 50 1 No 1mg mg capsule 2-14 00:00: 00 Vistaril 50 1 No 1mg mg capsule 2-14 00:00: 00 Vistaril 50 1 No 1mg mg capsule 2- 00:00: 00 Vistaril 50 1 No 1mg mg capsule 2- 00:00: 00 Vistaril 50 1 No 1mg mg capsule 2- 00:00: 00 Vistaril 50 1 No 1mg mg capsule 2- 00:00: 00 Vistaril 50 2014-1 No 1mg mg capsule 2-14 00:00: 00 Vistaril 50 2014-1 No 1mg mg capsule 2-14 00:00: 00 Vistaril 50 2014-1 No 1mg mg capsule 2-14 00:00: 00 Paxil 20 mg 2014-1 No 1mg tablet 1-23 00:00: 00 Paxil 20 mg 2014-1 No 1mg tablet 1-23 00:00: 00 Paxil 20 mg 2014-1 No [...] 00:00: ophen 325 00 mg tablet hydrocodone 2014-0 No mg 7.5 8-15 mg-acetamin 00:00: ophen [...] No 1mg mg tablet 5 00:00: 00 Januvia 100 2015-0 No 1mg mg tablet 5- 00:00: 00 Januvia 100 2015-0 No 1mg mg tablet 5 00:00: 00 Januvia 100 2015-0 No 1mg mg tablet 5- 00:00: 00 Januvia 100 2015-0 No 1mg mg tablet 5- 00:00: 00 Januvia 100 2015-0 No 1mg mg tablet 5- 00:00: 00 Januvia 100 2015-0 No 1mg mg tablet 5 00:00: 00 Januvia 100 2014-0 No 1mg mg tablet 5 00:00: 00 Januvia 100 2015-0 No 1mg [...] 1mg 1,000 mg -28 tablet 00:00: 00 lisinopril 2015-0 No 1mg 5 mg tablet 08-07 00:00: 00 metformin 2015-0 No 1mg 1,000 mg -28 tablet 00:00: 00 glimepiride 2014-0 No 1mg 4 mg tablet 08-07 00:00: 00 metformin 2015-0 No 1mg 1,000 mg - tablet 00:00: 00 Vistaril 50 2015-0 No 1mg mg capsule 08-07 00:00: 00 [...] 1mg mg capsule 08-07 00:00: 00 lisinopril 2015-0 No 1mg [...] [place] Strips ( Medical TOUCH Branch COMBO) Cmpk Lancets & 2013- Yes Univers Blood 2-14 ity of Glucose 00:00: [place] Strips ( Medical TOUCH Branch COMBO) Cmpk Lancets & 2013- Yes Univers Blood 2-14 ity of Glucose 00:00: [place] Strips ( Medical TOUCH Branch COMBO) Cmpk Lancets & 2013- Yes Univers Blood 2-14 ity of Glucose 00:00: [place] Strips ( Medical TOUCH Branch COMBO) Cmpk Lancets & [...] Strips (ONE [facility] Medical [facility] Un[facility] s se Meter 6-05 [...] 00 Medical MONITORING) Branch Kit Blood-Gluco Yes [facility] se Meter 6-05 ity of (BLOOD 00:00: [place] GLUCOSE 00 Medical MONITORING) Branch Kit Immunizations Ordered Filled Immunization Date Status Comments [facility] e Immunization Name Name Leonarda FRAZIERID-19 2021-07-24 Completed Vaccine 00:00:00 Dashawna COVID-19 2021-07-24 Completed Vaccine 00:00:00 Moderna COVID-19 2021-07-24 Completed Vaccine 00:00:00 Moderna COVID-19 2021-07-24 Completed Vaccine 00:00:00 Moderna COVID-19 2021-07-24 Completed Vaccine 00:00:00 Moderna COVID-19 2021-07-24 Completed Vaccine 00:00:00 Moderna COVID-19 2021-07-24 Completed Vaccine 00:00:00 Moderna COVID-19 2021-07-24 Completed Vaccine 00:00:00 Dashawna COVID-19 2021-07-24 Completed Vaccine 00:00:00 Moderna COVID-19 2021-07-24 Completed Vaccine 00:00:00 Moderna COVID-19 2021-07-24 Completed Vaccine 00:00:00 Covid-19 Vaccine 2021-07-24 Completed Andreea aceves - Moderna (Spikevax), 00:00:00 Exter nal Mrna-lnp, Florentin Protein, Pf Covid-19 Vaccine 2021-07-24 Completed Andreea Mota eybold - Moderna (Spikevax), 00:00:00 Exter nal Mrna-lnp, Florentin Protein, Pf Covid-19 Vaccine 2021-07-24 Completed Andreea aceves - Moderna (Spikevax), 00:00:00 Exter nal Mrna-lnp, Florentin Protein, Pf Pneumococcal 2020-05-21 Completed [facility] o f Polysaccharide, 00:00:00 [facility] ical PPSV23 (PNEUMOVAX) Branch TDAP 2020-05-21 Completed [facility] 00:00:00 [facility] Pneumococcal 2020-05-21 Completed Delta o f Polysaccharide, 00:00:00 [facility] ical PPSV23 (PNEUMOVAX) Branch TDAP 2020-05-21 Completed [facility] 00:00:00 [facility] Pneumococcal 2020-05-21 Completed Delta o f Polysaccharide, 00:00:00 [place] [facility] ical PPSV23 (PNEUMOVAX) Branch TDAP 2020-05-21 Completed University of 00:00:00 [facility] Pneumococcal 2020-05-21 Completed University o f Polysaccharide, 00:00:00 [place] Med ical PPSV23 (PNEUMOVAX) Branch TDAP 2020-05-21 Completed University of 00:00:00 [facility] Pneumococcal 2020-05-21 Completed University o f Polysaccharide, 00:00:00 [place] Med ical PPSV23 (PNEUMOVAX) Branch TDAP 2020-05-21 Completed University of 00:00:00 [facility] Pneumococcal 2020-05-21 Completed University o f Polysaccharide, 00:00:00 [place] Med ical PPSV23 (PNEUMOVAX) Branch TDAP 2020-05-21 Completed University of 00:00:00 [facility] Pneumococcal 2020-05-21 Completed University o f Polysaccharide, 00:00:00 [place] Med ical PPSV23 (PNEUMOVAX) Branch TDAP 2020-05-21 Completed University of 00:00:00 [facility] Pneumococcal 2020-05-21 Completed University o f Polysaccharide, 00:00:00 [place] Med ical PPSV23 (PNEUMOVAX) Branch TDAP 2020-05-21 Completed University of 00:00:00 [facility] Pneumococcal 2020-05-21 Completed University o f Polysaccharide, 00:00:00 [place] Med ical PPSV23 (PNEUMOVAX) Branch TDAP 2020-05-21 Completed University of 00:00:00 [facility] Pneumococcal 2020-05-21 Completed University o f Polysaccharide, 00:00:00 [place] Med ical PPSV23 (PNEUMOVAX) Branch TDAP 2020-05-21 Completed University of 00:00:00 [facility] MMR 2013-07-25 Completed University of 00:00:00 [facility] MMR 2013-07-25 Completed University of 00:00:00 [facility] MMR 2013-07-25 Completed University of 00:00:00 [facility] MMR 2013-07-25 Completed University of 00:00:00 [facility] MMR 2013-07-25 Completed University of 00:00:00 [facility] MMR 2013-07-25 Completed University of 00:00:00 [facility] MMR 2013-07-25 Completed University of 00:00:00 [facility] MMR 2013-07-25 Completed University of 00:00:00 [facility] MMR 2013-07-25 Completed University of 00:00:00 [facility] MMR 2013-07-25 Completed University of 00:00:00 [facility] TDAP 2013-05-21 Completed University of 00:00:00 [facility] Branch TDAP 2013-05-21 Completed University of 00:00:00 [facility] TDAP 2013-05-21 Completed University of 00:00:00 [facility] Branch TDAP 2013-05-21 Completed University of 00:00:00 [facility] Branch TDAP 2013-05-21 Completed University of 00:00:00 [facility] Branch TDAP 2013-05-21 Completed University of 00:00:00 [facility] Branch TDAP 2013-05-21 Completed University of 00:00:00 [facility] Branch TDAP 2013-05-21 Completed University of 00:00:00 [facility] TDAP 2013-05-21 Completed University of 00:00:00 [facility] TDAP 2013-05-21 Completed University of 00:00:00 [facility] Influenza Virus 2013-03-19 Completed Universit y of Vaccine 00:00:00 [facility] Influenza Virus 2013-03-19 Completed Universit y of Vaccine 00:00:00 [facility] Influenza Virus 2013-03-19 Completed Universit y of Vaccine 00:00:00 [facility] Influenza Virus 2013-03-19 Completed Universit y of Vaccine 00:00:00 [facility] Influenza Virus 2013-03-19 Completed Universit y of Vaccine 00:00:00 [facility] Influenza Virus 2013-03-19 Completed Universit y of Vaccine 00:00:00 [facility] Influenza Virus 2013-03-19 Completed Universit y of Vaccine 00:00:00 [facility] Influenza Virus 2013-03-19 Completed Universit y of Vaccine 00:00:00 [facility] Influenza Virus 2013-03-19 Completed Universit y of Vaccine 00:00:00 [facility] Influenza Virus 2013-03-19 Completed Universit y of Vaccine 00:00:00 [facility] Rubella 2008-04-17 Completed University of 00:00:00 [facility] Rubella 2008-04-17 Completed University of 00:00:00 [facility] Rubella 2008-04-17 Completed University of 00:00:00 [facility] Rubella 2008-04-17 Completed University of 00:00:00 [place] [facility] Rubella 2008-04-17 Completed University of 00:00:00 [place] [facility] Rubella 2008-04-17 Completed University of 00:00:00 [place] [facility] Rubella 2008-04-17 Completed University of 00:00:00 [place] [facility] Rubella 2008-04-17 Completed University of 00:00:00 [place] [facility] Rubella 2008-04-17 Completed University of 00:00:00 [place] [facility] Rubella 2008-04-17 Completed University of 00:00:00 [place] [facility] TD, NOS 2004-07-11 Completed University of 00:00:00 [place] [facility] Td 2004-07-11 Completed University of 00:00:00 [place] [facility] Td 2004-07-11 Completed University of 00:00:00 [place] [facility] Td 2004-07-11 Completed University of 00:00:00 [place] [facility] Td 2004-07-11 Completed University of 00:00:00 [place] [facility] Td 2004-07-11 Completed University of 00:00:00 [place] [facility] Td 2004-07-11 Completed University of 00:00:00 [place] [facility] Td 2004-07-11 Completed University of 00:00:00 [place] [facility] TD, NOS 2004-07-11 Completed University of 00:00:00 [place] [facility] TD, NOS 2004-07-11 Completed University of 00:00:00 [facility] Vital Signs Vital Name Observation Time Observation Value Comments Source Systolic blood 2022-11-03 15:00:00 103 mm[Hg] Univer sity of pressure [facility] Diastolic blood 2022-11-03 15:00:00 72 mm[Hg] Unive rsity of pressure [facility] Heart rate 2022-11-03 15:00:00 76 /min [facility] Oxygen saturation in 2022-11-03 15:00:00 96 /min [facility] Arterial blood by [facility] Pulse oximetry Branch Respiratory rate 2022-11-03 14:58:00 14 /min [facility] 2022-11-03 13:25:00 37.22 Lorenza [facility] weight 2022-11-03 13:25:00 99.791 kg [facility] BMI 2022-11-03 13:25:00 37.76 kg/m2 [facility] Systolic blood 2022-10-01 20:47:00 110 mm[Hg] Andreea Seybold - pressure External Diastolic blood 2022-10-01 20:47:00 75 mm[Hg] Spencerse y Seybold - pressure External Heart rate 2022-10-01 20:47:00 104 /min Andreea S eybold - External Body temperature 2022-10-01 20:47:00 37.11 Lorenza Mildred ey Seybold - External Respiratory rate 2022-10-01 20:47:00 14 /min Mildred ey Seybold - External Body height 2022-10-01 20:47:00 162.6 cm Andreea S eybold - External Body weight 2022-10-01 20:47:00 105.235 kg Andreea S eybold - External BMI 2022-10-01 20:47:00 39.82 kg/m2 Andreea Mota eybold - External Oxygen saturation in 2022-10-01 20:47:00 99 /min Andreea Traoreold - Arterial blood by External Pulse oximetry Systolic blood 2022-09-10 16:20:00 105 mm[Hg] Andreea Seybold - pressure External Diastolic blood 2022-09-10 16:20:00 73 mm[Hg] Vikram y Seybold - pressure External Heart rate 2022-09-10 16:20:00 102 /min Andreea Mota eybold - External Body temperature 2022-09-10 16:20:00 36.44 Lorenza Mildred ey Seybold - External Respiratory rate 2022-09-10 16:20:00 18 /min Mildred ey Seybold - External Body height 2022-09-10 16:20:00 162.6 cm Andreea S eybold - External Body weight 2022-09-10 16:20:00 109.317 kg Andreea S eybold - External BMI 2022-09-10 16:20:00 41.37 kg/m2 Andreea S eybold - External Systolic blood 2022-09-07 20:49:00 103 mm[Hg] Andreea Seybold - pressure External Diastolic blood 2022-09-07 20:49:00 68 mm[Hg] Spencerse y Seybold - pressure External Heart rate 2022-09-07 20:49:00 119 /min Andreea S eybold - External Body temperature 2022-09-07 20:49:00 37.17 Lorenza Mildred Corona - External Respiratory rate 2022-09-07 20:49:00 14 /min Mildred Corona - External Body height 2022-09-07 20:49:00 162.6 cm Andreea casillasborafael - External Body weight 2022-09-07 20:49:00 109.317 kg Andreea casillasborafael - External BMI 2022-09-07 20:49:00 41.37 kg/m2 Andreea aceves - External Oxygen saturation in 2022-09-07 20:49:00 96 /min Andreea Corona - Arterial blood by External Pulse oximetry Systolic blood 2022-08-30 14:00:00 112 mm[Hg] Univer sity of pressure [facility] Diastolic blood 2022-08-30 14:00:00 75 mm[Hg] Unive rsity of [facility] Oxygen saturation in 2022-08-30 14:00:00 97 /min [facility] Arterial blood by [facility] Pulse oximetry Branch Heart rate 2022-08-30 13:00:00 93 /min [facility] Body temperature 2022-08-30 13:00:00 35.83 Lorenza Univ [facility] Respiratory rate 2022-08-30 13:00:00 15 /min [facility] Body weight 2022-08-29 12:00:00 112.492 kg [facility] BMI 2022-08-29 12:00:00 42.57 kg/m2 [facility] Body height 2022-08-27 00:21:00 162.6 cm [facility] Systolic blood 2022-06-22 04:59:00 110 mm[Hg] Univer sity of pressure [facility] Diastolic blood 2022-06-22 04:59:00 70 mm[Hg] Unive rsity of pressure [facility] Heart rate 2022-06-22 04:59:00 107 /min [facility] Respiratory rate 2022-06-22 04:59:00 22 /min Univ [facility] Oxygen saturation in 2022-06-22 04:59:00 97 /min [facility] of Arterial blood by [employer] [place] [employer] bonita Pulse oximetry Branch Body temperature 2022-06-21 23:26:00 37.28 Lorenza [facility] Body height 2022-06-21 23:26:00 162.6 cm [facility] Body weight 2022-06-21 23:26:00 98.431 kg [facility] BMI 2022-06-21 23:26:00 37.25 kg/m2 [facility] Systolic blood 2021-10-17 02:05:00 117 [...] 98 /min [facility] of Arterial blood by [facility] bonita Pulse oximetry Branch Body temperature 2021-10-16 [...] University of Arterial blood by [place] [employer] bonita Pulse oximetry Branch Respiratory rate 2021-09-22 15:00:00 18 /min [facility] Body temperature 2021-09-22 14:52:00 37.11 Lorenza [facility] Body weight 2021-09-22 14:52:00 103.42 kg [facility] BMI 2021-09-22 14:52:00 37.94 kg/m2 [facility] Systolic blood 2021-06-18 12:00:00 142 mm[Hg] Univer [facility]ity of [facility] Diastolic blood 2021-06-18 12:00:00 94 mm[Hg] Unive [facility]ity of [facility] Heart rate 2021-06-18 12:00:00 98 /min [facility] Body temperature 2021-06-18 12:00:00 36.56 Lorenza [facility] Respiratory rate 2021-06-18 12:00:00 13 /min [facility] Oxygen saturation in 2021-06-18 12:00:00 95 /min [facility] Arterial blood by [place] [employer] bonita Pulse oximetry Branch Body height 2021-06-18 [...] 2021-05-31 01:34:00 112 /min [facility] Respiratory rate 2021-05-31 01:34:00 20 /min [facility] Oxygen saturation in 2021-05-31 01:34:00 98 /min [facility] of Arterial blood by [place] [employer] bonita Pulse oximetry Branch Body weight 2021-05-30 21:47:00 107.502 kg [facility] BMI 2021-05-30 21:47:00 40.68 kg/m2 [facility] BP Systolic 2022-06-18 10:43:00 118 mm[Hg] BP [...] Date / Time Performing Clinician Source Performed LIPASE 2022-11-03 13:37:00 Katelyn Ivey [facility] HEPATIC FUNCTION PANEL 2022-11-03 13:37:00 Katelyn Ivey [facility] ([id number]) (ALB,T.PRO,BILI Medical Branch T,BU/BC,ALT,AST,ALK PHOS) BASIC METABOLIC PANEL 2022-11-03 13:37:00 Katelyn Ivey [facility] (NA, K, CL, CO2, Medical Branch GLUCOSE, BUN, CREATININE, CA) LIPID PANEL 2022-11-03 13:37:00 [facility] ([id number])(TOTAL Medical Branch CHOLESTEROL, TRIGLYCERIDES, HDL) CBC WITH DIFF 2022-11-03 13:37:00 Loni [facility] URINALYSIS 2022-11-03 13:37:00 Loni [facility] CONSENT/REFUSAL FOR 2022-11-03 13:22:43 Doctor Unassigned, No [facility] DIAGNOSIS AND TREATMENT Name [facility] REAGENT STRIP/BLOOD 2022-09-10 00:00:00 Outside, Reported Andreea Corona - DEBBI External POCT GLUCOSE (AUTOMATED) 2022-08-30 14:52:00 [facility] 2022-08-30 13:01:[address] [facility] POCT GLUCOSE (AUTOMATED) 2022-08-30 12:03:[address] [facility] POCT GLUCOSE (AUTOMATED) 2022-08-30 11:04:[address] [facility] TRIGLYCERIDES 2022-08-30 10:18:00 Meri Wray [facility] BASIC METABOLIC PANEL 2022-08-30 10:18:00 Meri Wray [facility] (NA, K, CL, CO2, Medical Branch GLUCOSE, BUN, CREATININE, CA) POCT GLUCOSE (AUTOMATED) 2022-08-30 10:11:[address] [facility] POCT GLUCOSE (AUTOMATED) 2022-08-30 09:10:[address] [facility] POCT GLUCOSE (AUTOMATED) 2022-08-30 08:08:[address] [facility] POCT GLUCOSE (AUTOMATED) 2022-08-30 07:15:[address] [facility] POCT GLUCOSE (AUTOMATED) 2022-08-30 06:28:00 OvParesh morani [facility] POCT GLUCOSE (AUTOMATED) 2022-08-30 05:04:00 Oville, Meri [facility] POCT GLUCOSE (AUTOMATED) 2022-08-30 04:11:00 Oville, Meri [facility] POCT GLUCOSE (AUTOMATED) 2022-08-30 03:03:00 Oville, Meri [facility] POCT GLUCOSE (AUTOMATED) 2022-08-30 02:21:00 Oville, Meri [facility] POCT GLUCOSE (AUTOMATED) 2022-08-30 01:02:00 Oville, Meri [facility] POCT GLUCOSE (AUTOMATED) 2022-08-30 00:03:00 Oville, Meri [facility] POCT GLUCOSE (AUTOMATED) 2022-08-29 23:00:00 OvMeri moran Uni vers[facility] POCT GLUCOSE (AUTOMATED) 2022-08-29 22:04:00 OvillePareshi Uni versity [facility] POCT GLUCOSE (AUTOMATED) 2022-08-29 21:11:00 OvMeri moran Uni versity of [facility] POTASSIUM SERUM 2022-08-29 20:33:00 Ovdean [facility] TRIGLYCERIDES 2022-08-29 20:33:00 Ovdean [facility] POCT GLUCOSE (AUTOMATED) 2022-08-29 20:07:00 OvParesh morani Uni vers[facility] POCT GLUCOSE (AUTOMATED) 2022-08-29 19:09:00 OvilleParehsi Uni versity of [facility] POCT GLUCOSE (AUTOMATED) 2022-08-29 18:12:00 OvillePareshi Uni versity [facility] POCT GLUCOSE (AUTOMATED) 2022-08-29 17:08:00 Ovdean Meri [facility] POCT GLUCOSE (AUTOMATED) 2022-08-29 16:14:00 OvillePareshi Uni versity [facility] POCT GLUCOSE (AUTOMATED) 2022-08-29 15:05:00 Oville, Meri [facility] POCT GLUCOSE (AUTOMATED) 2022-08-29 14:08:00 OvillePareshi Uni versity [facility] POCT GLUCOSE (AUTOMATED) 2022-08-29 13:18:00 OvParesh morani Uni vers[facility] POCT GLUCOSE (AUTOMATED) 2022-08-29 12:06:00 OvParesh morani Uni vers[facility] POCT GLUCOSE (AUTOMATED) 2022-08-29 10:56:00 OvMeri moran Uni versity [facility] TRIGLYCERIDES 2022-08-29 10:53:00 Kamala [facility] MAGNESIUM 2022-08-29 10:53:00 Pedro [facility] BASIC METABOLIC PANEL 2022-08-29 10:53:00 Kamala [facility] (NA, K, CL, CO2, Medical Branch GLUCOSE, BUN, CREATININE, CA) POCT GLUCOSE (AUTOMATED) 2022-08-29 09:59:00 OvMeri moran Uni versity [facility] POCT GLUCOSE (AUTOMATED) 2022-08-29 09:07:00 OvParesh morani Uni versity of [facility] POCT GLUCOSE (AUTOMATED) 2022-08-29 07:55:00 OvParesh morani Uni versity [facility] POCT GLUCOSE (AUTOMATED) 2022-08-29 07:06:00 OvillePareshi Uni versity of [facility] POCT GLUCOSE (AUTOMATED) 2022-08-29 06:02:00 OvilleTawandaMeri Uni versity of [facility] POCT GLUCOSE (AUTOMATED) 2022-08-29 05:09:00 OvillePareshi Uni versity [facility] POCT GLUCOSE (AUTOMATED) 2022-08-29 04:09:00 Oville Meri Uni vers[facility] POCT GLUCOSE (AUTOMATED) 2022-08-29 03:17:00 OvilleTawandaMeri Uni versity of [facility] POCT GLUCOSE (AUTOMATED) 2022-08-29 02:11:00 OvilleTawandaMeri [facility] POCT GLUCOSE (AUTOMATED) 2022-08-29 01:00:00 Paresh Wrayi Uni versity [facility] POCT GLUCOSE (AUTOMATED) 2022-08-29 00:13:00 OvParesh morani Uni versity [facility] POCT GLUCOSE (AUTOMATED) 2022-08-28 23:13:00 Paresh Wrayi Uni vers[facility] POCT GLUCOSE (AUTOMATED) 2022-08-28 22:15:00 OvParesh morani Uni vers[facility] POCT GLUCOSE (AUTOMATED) 2022-08-28 21:04:00 Ovdean, Meri Uni vers[facility] POCT GLUCOSE (AUTOMATED) 2022-08-28 20:03:00 OvMeri moran Uni vers[facility] POCT GLUCOSE (AUTOMATED) 2022-08-28 19:06:00 Meri Wray Uni vers[facility] TRIGLYCERIDES 2022-08-28 18:22:00 Kamala [facility] BASIC METABOLIC PANEL 2022-08-28 18:22:00 Meri Wray [facility] (NA, K, CL, CO2, Medical Branch GLUCOSE, BUN, CREATININE, CA) POCT GLUCOSE (AUTOMATED) 2022-08-28 18:13:00 OvMeri moran Uni vers[facility] POCT GLUCOSE (AUTOMATED) 2022-08-28 17:03:00 Paresh Wrayi Uni vers[facility] POCT GLUCOSE (AUTOMATED) 2022-08-28 16:02:00 OvParesh morani Uni vers[facility] POCT GLUCOSE (AUTOMATED) 2022-08-28 15:02:00 OvParesh morani Uni vers[facility] POCT GLUCOSE (AUTOMATED) 2022-08-28 14:03:00 OvParesh morani Uni vers[facility] POCT GLUCOSE (AUTOMATED) 2022-08-28 13:04:00 Ovdean Meri [facility] POCT GLUCOSE (AUTOMATED) 2022-08-28 12:30:00 OvTawanda moranlani Uni versity of [facility] POCT GLUCOSE (AUTOMATED) 2022-08-28 11:32:00 Meri Wray Uni vers[facility] POCT GLUCOSE (AUTOMATED) 2022-08-28 10:06:00 Meri Wray Uni vers[facility] TRIGLYCERIDES 2022-08-28 10:00:00 Meri Wray o f [facility] BASIC METABOLIC PANEL 2022-08-28 10:00:00 [facility] ([facility], K, CL, CO2, Medical Branch GLUCOSE, BUN, CREATININE, CA) POCT GLUCOSE (AUTOMATED) 2022-08-28 08:59:00 OvParesh morani Uni versity [facility] POCT GLUCOSE (AUTOMATED) 2022-08-28 08:05:00 Paresh Wrayi Uni versity [facility] POCT GLUCOSE (AUTOMATED) 2022-08-28 05:58:00 Paresh Wrayi Uni vers[facility] POCT GLUCOSE (AUTOMATED) 2022-08-28 05:03:00 Meri Wray [facility] POCT GLUCOSE (AUTOMATED) 2022-08-28 04:01:00 OvParesh morani Uni vers[facility] POCT GLUCOSE (AUTOMATED) 2022-08-28 03:04:00 Paresh Wrayi Uni vers[facility] POCT GLUCOSE (AUTOMATED) 2022-08-28 02:02:00 Kamala Meri Uni vers[facility] POCT GLUCOSE (AUTOMATED) 2022-08-28 01:01:00 Paresh Wrayi Uni vers[facility] POCT GLUCOSE (AUTOMATED) 2022-08-28 00:02:00 Ovdean Meri [facility] vers[facility] POCT GLUCOSE (AUTOMATED) 2022-08-27 23:34:00 Ovdean Emri Uni versity [facility] POCT GLUCOSE (AUTOMATED) 2022-08-27 22:07:00 Kamala Meri Uni versity [facility] BASIC METABOLIC PANEL 2022-08-27 21:28:00 Meri Wray [facility] (NA, K, CL, CO2, Medical Branch GLUCOSE, BUN, CREATININE, CA) POCT GLUCOSE (AUTOMATED) 2022-08-27 21:01:00 OvMeri moran Uni versity [facility] POCT GLUCOSE (AUTOMATED) 2022-08-27 20:17:00 OvParesh morani Uni versity [facility] POCT GLUCOSE (AUTOMATED) 2022-08-27 19:00:00 OvParesh morani Uni versity [facility] POCT GLUCOSE (AUTOMATED) 2022-08-27 18:02:00 OvillePareshi Uni versity of [facility] TRIGLYCERIDES 2022-08-27 17:17:00 Ovdean [facility] BASIC METABOLIC PANEL 2022-08-27 17:17:00 Kamala [facility] (NA, K, CL, CO2, Medical Branch GLUCOSE, BUN, CREATININE, CA) POCT GLUCOSE (AUTOMATED) 2022-08-27 16:59:00 OvMeri moran Uni versity [facility] POCT GLUCOSE (AUTOMATED) 2022-08-27 16:12:00 OvillePareshi Uni versity [facility] POCT GLUCOSE (AUTOMATED) 2022-08-27 15:13:00 Oville Meri [facility] vers[facility] POCT GLUCOSE (AUTOMATED) 2022-08-27 14:19:00 OvParesh morani Uni versity [facility] POCT GLUCOSE (AUTOMATED) 2022-08-27 13:23:00 Ovdean Meri [facility] vers[facility] POCT GLUCOSE (AUTOMATED) 2022-08-27 12:05:00 OvParesh morani Uni versity [facility] POCT GLUCOSE (AUTOMATED) 2022-08-27 11:06:00 OvilleTawandaMeri Uni versity of [facility] POCT GLUCOSE (AUTOMATED) 2022-08-27 10:14:00 Oville Meri [facility] vers[facility] POCT GLUCOSE (AUTOMATED) 2022-08-27 09:04:00 Ovdean Meri [facility] TRIGLYCERIDES 2022-08-27 08:14:00 Ovdean [facility] BASIC METABOLIC PANEL 2022-08-27 08:14:00 Ovdean [facility] (NA, K, CL, CO2, Medical Branch GLUCOSE, BUN, CREATININE, CA) POCT GLUCOSE (AUTOMATED) 2022-08-27 06:58:00 Meri Wray [facility] POCT GLUCOSE (AUTOMATED) 2022-08-27 06:11:00 Meri Wray Uni [facility] POCT GLUCOSE (AUTOMATED) 2022-08-27 05:11:00 Meri Wray [facility] POCT GLUCOSE (AUTOMATED) 2022-08-27 03:13:00 Meri Wray [facility] LIPASE 2022-08-27 02:32:00 [facility] BASIC METABOLIC PANEL 2022-08-27 02:32:00 [facility] ([facility], K, CL, CO2, Medical Branch GLUCOSE, BUN, CREATININE, CA) MRSA / MSSA SCREEN BY 2022-08-27 02:32:00 [facility] 2022-08-27 02:00:00 Meri Wray [facility] POCT GLUCOSE (AUTOMATED) 2022-08-27 01:14:00 Meri Wray [facility] POCT GLUCOSE (AUTOMATED) 2022-08-27 00:14:00 Meri Wray [facility] POCT GLUCOSE (AUTOMATED) 2022-08-26 23:51:00 Meri Wray [facility] POCT GLUCOSE (AUTOMATED) 2022-08-26 23:06:00 Meri Wray [facility] KETONES URINE 2022-08-26 22:57:00 Robert Lutz [facility] URINALYSIS 2022-08-26 22:57:00 Robert Lutz [facility] POCT GLUCOSE (AUTOMATED) 2022-08-26 22:08:00 Robert Lutz [facility] ABG+COOX+NA+K+GLU+CA2+ 2022-08-26 21:16:00 Robert Lutz [facility] MAGNESIUM 2022-08-26 21:11:00 Robert Lutz [facility] OSMOLALITY, SERUM OR 2022-08-26 21:11:00 Robert Lutz [facility] PLASMA [facility] COMP. METABOLIC PANEL 2022-08-26 21:11:00 Robert Lutz [facility] ([id number]) [facility] LIPID PANEL 2022-08-26 21:11:00 Bolivar [facility] ([id number])(TOTAL [facility] CHOLESTEROL, TRIGLYCERIDES, HDL) CBC WITH DIFF 2022-08-26 21:11:00 [facility]OW[facility] LIPOPROTEIN, 2022-08-26 21:11:00 Robert Lutz Un [facility] HB ECG ROUTINE & RHYTHM 2022-08-26 20:34:00 Guido Rucker [facility] STRIP [facility] POCT GLUCOSE (AUTOMATED) 2022-08-26 20:33:00 Doctor Unassigned, No [facility] CONSENT/REFUSAL FOR 2022-08-26 20:18:28 Doctor Unassigned, No Un [facility] DIAGNOSIS AND TREATMENT Name [facility] POCT GLUCOSE (AUTOMATED) 2022-06-22 03:40:00 Katelyn Ivey [facility] BASIC METABOLIC PANEL 2022-06-22 02:40:00 Katelyn Ivey [facility] (NA, K, CL, CO2, [facility] GLUCOSE, BUN, CREATININE, CA) POCT GLUCOSE(AGE 2022-06-22 02:39:00 Katelyn Ivey [facility] >30DAYS) [facility] POCT GLUCOSE (AUTOMATED) 2022-06-22 02:38:00 Katelyn Ivey [facility] VBG+VCOOX+NA+K+GLU+CA2+ 2022-06-22 02:08:00 Katelyn Ivey [facility] POCT GLUCOSE (AUTOMATED) 2022-06-22 01:41:00 Katelyn Ivey [facility] XR CHEST 2 VW 2022-06-22 00:47:37 Katelyn Ivey [facility] PHOSPHORUS 2022-06-21 23:49:00 Katelyn Ivey [facility] MAGNESIUM 2022-06-21 23:49:00 Katelyn Ivey [facility] TROPONIN I 2022-06-21 23:49:00 Katelyn Ivey [facility] BASIC METABOLIC PANEL 2022-06-21 23:49:00 Katelyn Ivey [facility] (NA, K, CL, CO2, Medical Branch GLUCOSE, BUN, CREATININE, CA) CBC WITH DIFF 2022-06-21 23:49:00 [facility] GLYCOSYLATED HEMOGLOBIN 2022-06-21 23:49:00 Katelyn Ivey [facility] (A1C) [facility] URINALYSIS 2022-06-21 23:49:00 [facility] RAPID STREP SCREEN FOR 2022-06-21 23:49:00 Katelyn Ivey [facility] GROUP A [facility] RAPID INFLUENZA A/B 2022-06-21 23:49:00 Katelyn Ivey [facility] N-TERMINAL PRO-BNP 2022-06-21 23:49:00 Katelyn Ivey [facility] COVID-19 (ID NOW RAPID 2022-06-21 23:49:00 Katelyn Ivey [facility] TESTING) [facility] CONSENT/REFUSAL FOR 2022-06-21 23:19:40 Doctor Unassigned, No Un [facility] DIAGNOSIS AND TREATMENT Name [facility] POCT GLUCOSE (AUTOMATED) 2021-10-17 01:49:00 Beatriz Eduardo Un [facility] POCT GLUCOSE(AGE 2021-10-17 00:41:00 Beatriz Eduardo [facility] >30DAYS) [facility] POCT GLUCOSE (AUTOMATED) 2021-10-17 00:40:00 Beatriz Eduardo [facility] BLOOD CULTURE SCREEN 2021-10-16 23:26:00 Beatriz Eduardo [facility] BLOOD CULTURE SCREEN 2021-10-16 23:03:00 Beatriz Eduardo [facility] TROPONIN I 2021-10-16 23:03:00 Beatriz Eduardo [facility] COMP. METABOLIC PANEL 2021-10-16 23:03:00 Beatriz Eduardo [facility] ([id number]) Medical Branch CBC WITH DIFF 2021-10-16 23:03:00 Beatriz Eduardo [facility] URINALYSIS 2021-10-16 23:03:00 Beatriz Eduardo [facility] N-TERMINAL PRO-BNP 2021-10-16 23:03:00 Beatriz Eduardo [facility] LACTIC ACID WHOLE BLOOD 2021-10-16 23:01:00 Beatriz Eduardo [facility] CT ABDOMEN PELVIS WO 2021-10-16 22:40:13 Beatriz Eduardo [facility] POCT TEST 2021-10-16 22:34:00 Beatriz Eduardo [facility] CONSENT/REFUSAL FOR 2021-10-16 21:34:04 Doctor Unassigned, No [facility] Name [facility] CT ABDOMEN PELVIS WO 2021-09-22 15:59:44 Singer Jn [facility] POCT TEST 2021-09-22 15:18:00 Jn Miller [facility] COMP. METABOLIC PANEL 2021-09-22 15:16:00 Jn Miller [facility] ([id number]) [facility] CBC WITH DIFF 2021-09-22 15:16:00 Singer [facility] URINALYSIS 2021-09-22 14:58:00 Miller [facility] CONSENT/REFUSAL FOR 2021-09-22 14:47:03 Doctor Unassigned, No [facility] TREATMENT Name [facility] POCT GLUCOSE (AUTOMATED) 2021-06-18 13:04:00 [facility] 2021-06-18 12:58:31 Fozia Jang [facility] CONTRAST [facility] POCT TEST 2021-06-18 11:06:00 Fozia Jang [facility] CREATINE KINASE 2021-06-18 10:50:00 Lionel Park [facility] COMP. METABOLIC PANEL 2021-06-18 10:50:00 Fozia Jang [facility] ([id number]) Medical Branch CBC WITH DIFF 2021-06-18 10:50:00 Fozia Jang [facility] URINALYSIS 2021-06-18 10:50:00 Fozia Jang [facility] RAPID INFLUENZA A/B 2021-06-18 10:50:00 Fozia Jang [facility] COVID-19 (ID NOW RAPID 2021-06-18 10:50:00 Fozia Jang [facility] TESTING) Medical Branch NOTICE OF PRIVACY 2021-06-18 10:24:00 Doctor Unassigned, No [facility] PRACTICES Name [facility] CONSENT/REFUSAL FOR 2021-06-18 10:21:45 Doctor Unassigned, No [facility] DI[facility]IS [facility] TREATMENT Name [facility] CT ABDOMEN PELVIS W 2021-05-30 23:52:43 [facility] CT HEAD WO CONTRAST 2021-05-30 23:52:13 Mary Jay [facility] XR CHEST 1 VW 2021-05-30 22:38:06 Mary Jay [facility] XR HAND 3+ VW LEFT 2021-05-30 22:38:06 Mary Jay [facility] XR FOREARM 2 VW LEFT 2021-05-30 22:28:08 Mary Jay [facility] CONSENT/REFUSAL FOR 2021-05-30 21:39:04 Doctor [facility]assigned, [facility] TREATMENT Name Medical Branch [id number] Ecg Routine Ecg 2015-12-20 00:00:00 W/least 12 Lds W/i r 83.71 2010-08-05 00:00:[address] [facility] 77.98 2010-08-05 00:00:[address] [facility] Plan of Care Planned Activity Planned Date Details Comments Source Future Scheduled 2022-10-29 COVID-19 VACCINE [facility] Test 14:01:19 (#1) [code = COVID-19 VACCINE (#1)] Future Scheduled 2022-10-29 [facility] [facility] 14:01:19 (#1) [code = COVID-19 VACCINE (#1)] Future Scheduled 2022-10-29 [facility]01:19 screening (procedure) [code = 555959099] Future Scheduled 2022-10-29 [facility] 14:01:19 malignant neoplasm of cervix (procedure) [code = 889078588] Future Scheduled 2022-10-29 BREAST CANCER [facility] 14:01:19 SCREENING [code = BREAST CANCER SCREENING] Future Scheduled 2022-10-29 [facility]:01:19 [code = INFLUENZA VACCINE] Future Scheduled 2022-10-29 [facility] 14:01:19 screening (procedure) [code = 331713292] Future Scheduled 2022-10-29 [facility] 14:01:19 malignant neoplasm of cervix (procedure) [code = 881206880] Future Scheduled 2022-10-29 BREAST CANCER [facility] 14:01:19 SCREENING [code = BREAST CANCER SCREENING] Future Scheduled 2022-10-29 [facility]:01:19 [code = INFLUENZA VACCINE] Future Scheduled 2022-06-30 [facility] 13:24:39 (#1) [code = COVID-19 VACCINE (#1)] Future Scheduled 2022-06-30 [facility] 13:24:39 screening (procedure) [code = 642499178] Future Scheduled 2022-06-30 [facility] 13:24:39 malignant neoplasm of cervix (procedure) [code = 258039792] Future Scheduled 2022-06-30 BRE[facility]CER [facility] 13:24:39 SCREENING [code = BREAST CANCER SCREENING] Future Scheduled 2022-06-30 [facility] 13:24:39 [code = INFLUENZA VACCINE] Future Scheduled 2022-06-30 [facility] 13:24:39 (#1) [code = COVID-19 VACCINE (#1)] Future Scheduled 2022-06-30 [facility] 13:24:39 screening (procedure) [code = 568095942] Future Scheduled 2022-06-30 [facility] 13:24:39 malignant neoplasm of cervix (procedure) [code = 292120930] Future Scheduled 2022-06-30 BRE[facility]CER [facility] 13:24:39 SCREENING [code = BREAST CANCER SCREENING] Future Scheduled 2022-06-30 [facility] 13:24:39 [code = INFLUENZA VACCINE] Future Scheduled 2022-06-30 [facility] 13:24:39 (#1) [code = COVID-19 VACCINE (#1)] Future Scheduled 2022-06-30 [facility] 13:24:39 screening (procedure) [code = 078219696] Future Scheduled 2022-06-30 [facility] 13:24:39 malignant neoplasm of cervix (procedure) [code = 095908588] Future Scheduled 2022-06-30 BRE[facility]CER [facility] 13:24:39 SCREENING [code = BREAST CANCER SCREENING] Future Scheduled 2022-06-30 [facility] 13:24:39 [code = INFLUENZA VACCINE] Future Scheduled 2022-05-12 [facility] B [facility] 14:10:29 VACCINES (1 of 3 - 3-dose series) [code = HEPATITIS B VACCINES (1 of 3 - 3-dose series)] Future Scheduled 2022-05-12 [facility] 14:10:29 (#1) [code = COVID-19 VACCINE (#1)] Future Scheduled 2022-05-12 [facility] 14:10:29 screening (procedure) [code = 375128468] Future Scheduled 2022-05-12 [facility] 14:10:29 malignant neoplasm of cervix (procedure) [code = 222386189] Future Scheduled 2022-05-12 [facility]ER [facility] 14:10:29 SCREENING [code = BREAST CANCER SCREENING] Future Scheduled 2022-05-12 INFLUENZA VACCINE [facility] Test 14:10:29 [code = INFLUENZA VACCINE] Future Scheduled 2022-05-12 [facility] 14:10:29 VACCINES (1 of 3 - 3-dose series) [code = HEPATITIS B VACCINES (1 of 3 - 3-dose series)] Future Scheduled 2022-05-12 COVID-19 VACCINE [facility] Test 14:10:29 (#1) [code = COVID-19 VACCINE (#1)] Future Scheduled 2022-05-12 [facility] 14:10:29 screening (procedure) [code = 852148113] Future Scheduled 2022-05-12 Screening for [facility] Test 14:10:29 malignant neoplasm of cervix (procedure) [code = 061281944] Future Scheduled 2022-05-12 BREAST CANCER [facility] Test 14:10:29 SCREENING [code = BREAST CANCER SCREENING] Future Scheduled 2022-05-12 INFLUENZA VACCINE [facility] Test 14:10:29 [code = INFLUENZA VACCINE] Future Scheduled 2022-05-12 [facility] 14:10:29 VACCINES (1 of 3 - 3-dose series) [code = HEPATITIS B VACCINES (1 of 3 - 3-dose series)] Future Scheduled 2022-05-12 COVID-19 VACCINE [facility] Test 14:10:29 (#1) [code = COVID-19 VACCINE (#1)] Future Scheduled 2022-05-12 [facility] 14:10:29 screening (procedure) [code = 890460494] Future Scheduled 2022-05-12 Screening for [facility] Test 14:10:29 malignant neoplasm of cervix (procedure) [code = 722888670] Future Scheduled 2022-05-12 BREAST CANCER [facility] Test 14:10:29 SCREENING [code = BREAST CANCER SCREENING] Future Scheduled 2022-05-12 INFLUENZA VACCINE [facility] Test 14:10:29 [code = INFLUENZA VACCINE] Future Scheduled 2022-05-12 [facility] 14:10:29 VACCINES (1 of 3 - 3-dose series) [code = HEPATITIS B VACCINES (1 of 3 - 3-dose series)] Future Scheduled 2022-05-12 [facility]-19 [facility] 14:10:29 (#1) [code = COVID-19 VACCINE (#1)] Future Scheduled 2022-05-12 [facility] 14:10:29 screening (procedure) [code = 383835808] Future Scheduled 2022-05-12 [facility] 14:10:29 malignant neoplasm of cervix (procedure) [code = 456229270] Future Scheduled 2022-05-12 [facility] 14:10:29 SCREENING [code = BREAST CANCER SCREENING] Future Scheduled 2022-05-12 INFLUENZA VACCINE [facility] Test 14:10:29 [code = INFLUENZA VACCINE] Future Scheduled 2022-04-12 [facility] 08:53:27 screening (procedure) [code = 251168459] Future Scheduled 2022-04-12 [facility] 08:53:27 malignant neoplasm of cervix (procedure) [code = 268745273] Future Scheduled 2022-04-12 BREAST CANCER [facility] Test 08:53:27 SCREENING [code = BREAST CANCER SCREENING] Future Scheduled 2022-04-12 INFLUENZA VACCINE [facility] Test 08:53:27 [code = INFLUENZA VACCINE] Future Scheduled 2022-04-12 [facility] 08:53:27 VACCINES (1 of 3 - 3-dose series) [code = HEPATITIS B VACCINES (1 of 3 - 3-dose series)] Future Scheduled 2022-04-12 COVID-19 [facility] 08:53:27 (#1) [code = COVID-19 VACCINE (#1)] Future Scheduled 2022-03-16 [facility] 11:35:00 VACCINES (1 of 3 - 3-dose series) [code = HEPATITIS B VACCINES (1 of 3 - 3-dose series)] Future Scheduled 2022-03-16 COVID-19 [facility] 11:35:00 (#1) [code = COVID-19 VACCINE (#1)] Future Scheduled 2022-03-16 [facility] 11:35:00 screening (procedure) [code = 883592905] Future Scheduled 2022-03-16 Screening for [facility] Test 11:35:00 malignant neoplasm of cervix (procedure) [code = 871502333] Future Scheduled 2022-03-16 BREAST CANCER [facility] Test 11:35:00 SCREENING [code = BREAST CANCER SCREENING] Future Scheduled 2022-03-16 INFLUENZA VACCINE [facility] Test 11:35:00 [code = INFLUENZA VACCINE] Future Scheduled 2022-03-16 [facility] 11:35:00 VACCINES (1 of 3 - 3-dose series) [code = HEPATITIS B VACCINES (1 of 3 - 3-dose series)] Future Scheduled 2022-03-16 COVID-19 [facility]ACCINE [facility] 11:35:00 (#1) [code = COVID-19 VACCINE (#1)] Future Scheduled 2022-03-16 [facility] 11:35:00 screening (procedure) [code = 394091866] Future Scheduled 2022-03-16 Screening for [facility] Test 11:35:00 malignant neoplasm of cervix (procedure) [code = 632173578] Future Scheduled 2022-03-16 BREAST CANCER [facility] Test 11:35:00 SCREENING [code = BREAST CANCER SCREENING] Future Scheduled 2022-03-16 INFLUENZA VACCINE [facility] Test 11:35:00 [code = INFLUENZA VACCINE] Future Scheduled 2022-03-09 [facility] 12:08:14 VACCINES (1 of 3 - 3-dose series) [code = HEPATITIS B VACCINES (1 of 3 - 3-dose series)] Future Scheduled 2022-03-09 COVID-19 [facility] 12:08:14 (#1) [code = COVID-19 VACCINE (#1)] Future Scheduled 2022-03-09 [facility] 12:08:14 screening (procedure) [code = 783864551] Future Scheduled 2022-03-09 Screening for [facility] Test 12:08:14 malignant neoplasm of cervix (procedure) [code = 402773959] Future Scheduled 2022-03-09 BREAST CANCER [facility] Test 12:08:14 SCREENING [code = BREAST CANCER SCREENING] Future Scheduled 2022-03-09 INFLUENZA VACCINE [facility] Test 12:08:14 [code = INFLUENZA VACCINE] Future Scheduled 2022-03-09 [facility] 12:08:14 VACCINES (1 of 3 - 3-dose series) [code = HEPATITIS B VACCINES (1 of 3 - 3-dose series)] Future Scheduled 2022-03-09 COVID-19 VACCINE [facility] Test 12:08:14 (#1) [code = COVID-19 VACCINE (#1)] Future Scheduled 2022-03-09 [facility] 12:08:14 screening (procedure) [code = 249712294] Future Scheduled 2022-03-09 Screening for [facility] Test 12:08:14 malignant neoplasm of cervix (procedure) [code = 702726088] Future Scheduled 2022-03-09 BREAST CANCER [facility] Test 12:08:14 SCREENING [code = BREAST CANCER SCREENING] Future Scheduled 2022-03-09 INFLUENZA VACCINE [facility] Test 12:08:14 [code = INFLUENZA VACCINE] Future Scheduled 2022-03-09 [facility] 12:08:14 VACCINES (1 of 3 - 3-dose series) [code = HEPATITIS B VACCINES (1 of 3 - 3-dose series)] Future Scheduled 2022-03-09 COVID-19 VACCINE [facility] Test 12:08:14 (#1) [code = COVID-19 VACCINE (#1)] Future Scheduled 2022-03-09 [facility] 12:08:14 screening (procedure) [code = 035417050] Future Scheduled 2022-03-09 Screening for [facility] Test 12:08:14 malignant neoplasm of cervix (procedure) [code = 349718975] Future Scheduled 2022-03-09 [facility] 12:08:14 SCREENING [code = BREAST CANCER SCREENING] Future Scheduled 2022-03-09 INFLUENZA VACCINE [facility] Test 12:08:14 [code = INFLUENZA VACCINE] Goal Plan of Care Note [code = 95153-4] Goal Plan of Care Note [code = 95535-4] Goal Plan of Care Note [code = 12965-1] Goal Plan of Care Note [code = 38939-8] Goal Plan of Care Note [code = 42234-4] Goal Plan of Care Note [code = 67132-8] Goal Plan of Care Note [code = 08928-2] Goal Plan of Care Note [code = 29515-1] Goal Plan of Care Note [code = 88074-0] Goal Plan of Care Note [code = 61477-0] Goal Plan of Care Note [code = 74458-3] Goal Plan of Care Note [code = 19957-0] Goal Plan of Care Note [code = 71530-3] Goal Plan of Care Note [code = 90546-4] Goal Plan of Care Note [code = 93116-9] Goal Plan of Care Note [code = 21789-2] Goal Plan of Care Note [code = 26800-4] Goal Plan of Care Note [code = 48241-3] Goal Plan of Care Note [code = 68991-7] Goal Plan of Care Note [code = 63121-5] Goal Plan of Care Note [code = 07704-9] Goal Plan of Care Note [code = 68047-4] Goal Plan of Care Note [code = 83404-4] Goal Plan of Care Note [code = 05429-6] Goal Plan of Care Note [code = 00147-6] Goal Plan of Care Note [code = 88677-4] Goal Plan of Care Note [code = 41995-4] Goal Plan of Care Note [code = 11817-6] Goal Plan of Care Note [code = 14640-2] Goal Plan of Care Note [code = 76886-2] Goal Plan of Care Note [code = 60891-6] Goal Plan of Care Note [code = 12863-2] Goal Plan of Care Note [code = 09517-5] Goal Plan of Care Note [code = 82805-4] Goal Plan of Care Note [code = 98109-0] Goal Plan of Care Note [code = 52431-4] Goal Plan of Care Note [code = 91012-9] Goal Plan of Care Note [code = 84138-2] Goal Plan of Care Note [code = 47972-7] Goal Plan of Care Note [code = 59458-4] Goal Plan of Care Note [code = 35172-1] Goal Plan of Care Note [code = 16685-6] Goal Plan of Care Note [code = 31796-7] Goal Plan of Care Note [code = 35600-7] Goal Plan of Care Note [code = 75870-6] Goal Plan of Care Note [code = 59800-1] Goal Plan of Care Note [code = 63287-9] Goal Plan of Care Note [code = 25162-2] Goal Plan of Care Note [code = 69261-0] Goal Plan of Care Note [code = 43813-6] Goal Plan of Care Note [code = 13172-1] Goal Plan of Care Note [code = 15861-3] Goal Plan of Care Note [code = 67180-5] Goal Plan of Care Note [code = 12284-7] Goal Plan of Care Note [code = 92780-9] Goal Plan of Care Note [code = 65813-9] Goal Plan of Care Note [code = 00894-8] Goal Plan of Care Note [code = 61382-0] Goal Plan of Care Note [code = 61962-6] Goal Plan of Care Note [code = 54776-0] Goal Plan of Care Note [code = 74599-5] Goal Plan of Care Note [code = 89653-1] Goal Plan of Care Note [code = 85767-2] Goal Plan of Care Note [code = 76248-4] Goal Plan of Care Note [code = 79608-5] Goal Plan of Care Note [code = 02803-1] Goal Plan of Care Note [code = 16018-2] Goal Plan of Care Note [code = 89522-4] Goal Plan of Care Note [code = 96877-2] Goal Plan of Care Note [code = 87440-4] Goal Plan of Care Note [code = 41538-0] Goal Plan of Care Note [code = 95537-0] Goal Plan of Care Note [code = 05826-7] Goal Plan of Care Note [code = 20001-7] Goal Plan of Care Note [code = 59157-7] Goal Plan of Care Note [code = 71877-9] Goal Plan of Care Note [code = 49554-3] Goal Plan of Care Note [code = 47318-7] Goal Plan of Care Note [code = 80328-1] Goal Plan of Care Note [code = 04480-4] Goal Plan of Care Note [code = 92388-0] Goal Plan of Care Note [code = 88082-2] Goal Plan of Care Note [code = 84334-8] Goal Plan of Care Note [code = 50846-8] Goal Plan of Care Note [code = 32424-8] Goal Plan of Care Note [code = 35413-7] Goal Plan of Care Note [code = 14875-4] Goal Plan of Care Note [code = 55747-1] Goal Plan of Care Note [code = 19633-5] Goal Plan of Care Note [code = 64432-6] Goal Plan of Care Note [code = 30103-6] Goal Plan of Care Note [code = 87319-3] Goal Plan of Care Note [code = 71155-5] Goal Plan of Care Note [code = 84265-4] Goal Plan of Care Note [code = 01977-0] Goal Plan of Care Note [code = 45293-3] Goal Plan of Care Note [code = 98215-7] Goal Plan of Care Note [code = 27688-6] Goal Plan of Care Note [code = 81517-9] Goal Plan of Care Note [code = 33001-6] Goal Plan of Care Note [code = 18749-5] Goal Plan of Care Note [code = 15724-7] Goal Plan of Care Note [code = 71146-4] Goal Plan of Care Note [code = 83445-2] Goal Plan of Care Note [code = 63810-9] Goal Plan of Care Note [code = 24854-4] Goal Plan of Care Note [code = 31488-1] Goal Plan of Care Note [code = 30108-1] Goal Plan of Care Note [code = 07350-7] Goal Plan of Care Note [code = 76743-5] Goal Plan of Care Note [code = 09776-3] Goal Plan of Care Note [code = 95380-7] Goal Plan of Care Note [code = 64000-3] Goal Plan of Care Note [code = 34632-4] Goal Plan of Care Note [code = 60318-3] Goal Plan of Care Note [code = 23906-4] Goal Plan of Care Note [code = 68529-8] Goal Plan of Care Note [code = 75264-0] Goal Plan of Care Note [code = 44620-5] Goal Plan of Care Note [code = 42228-0] Goal Plan of Care Note [code = 66222-1] Goal Plan of Care Note [code = 13869-4] Goal Plan of Care Note [code = 58151-7] Goal Plan of Care Note [code = 05136-8] Goal Plan of Care Note [code = 90882-2] Goal Plan of Care Note [code = 68954-0] Goal Plan of Care Note [code = 31270-9] Goal Plan of Care Note [code = 09576-9] Goal Plan of Care Note [code = 24114-5] Goal Plan of Care Note [code = 09052-7] Goal Plan of Care Note [code = 64967-1] Goal Plan of Care Note [code = 39218-6] Goal Plan of Care Note [code = 99920-9] Goal Plan of Care Note [code = 19700-3] Goal Plan of Care Note [code = 39023-4] Goal Plan of Care Note [code = 10385-8] Goal Plan of Care Note [code = 82775-1] Goal Plan of Care Note [code = 66473-1] Goal Plan of Care Note [code = 38714-7] Goal Plan of Care Note [code = 59408-2] Goal Plan of Care Note [code = 32582-1] Goal Plan of Care Note [code = 16386-1] Goal Plan of Care Note [code = 68173-2] Goal Plan of Care Note [code = 40590-8] Goal Plan of Care Note [code = 95911-8] Goal Plan of Care Note [code = 05917-9] Goal Plan of Care Note [code = 25065-5] Goal Plan of Care Note [code = 40177-4] Goal Plan of Care Note [code = 07997-8] Goal Plan of Care Note [code = 97789-4] Goal Plan of Care Note [code = 95255-9] Goal Plan of Care Note [code = 71721-9] Goal Plan of Care Note [code = 04626-9] Goal Plan of Care Note [code = 67884-8] Goal Plan of Care Note [code = 35791-3] Goal Plan of Care Note [code = 02074-6] Goal Plan of Care Note [code = 74831-5] Goal Plan of Care Note [code = 45207-5] Goal Plan of Care Note [code = 54015-9] Goal Plan of Care Note [code = 16460-0] Goal Plan of Care Note [code = 83012-8] Goal Plan of Care Note [code = 43743-9] Goal Plan of Care Note [code = 83857-9] Goal Plan of Care Note [code = 62991-2] Goal Plan of Care Note [code = 20135-6] Goal Plan of Care Note [code = 01413-0] Goal Plan of Care Note [code = 04893-9] Goal Plan of Care Note [code = 48855-8] Goal Plan of Care Note [code = 02020-0] Goal Plan of Care Note [code = 27778-0] Goal Plan of Care Note [code = 01620-0] Goal Plan of Care Note [code = 84207-3] Goal Plan of Care Note [code = 57895-7] Goal Plan of Care Note [code = 40301-1] Goal Plan of Care Note [code = 01626-9] Goal Plan of Care Note [code = 09940-5] Goal Plan of Care Note [code = 08249-1] Goal Plan of Care Note [code = 33968-8] Goal Plan of Care Note [code = 51103-6] Goal Plan of Care Note [code = 21227-1] Goal Plan of Care Note [code = 13733-8] Goal Plan of Care Note [code = 73054-2] Goal Plan of Care Note [code = 29776-2] Goal Plan of Care Note [code = 91572-6] Goal Plan of Care Note [code = 92813-1] Goal Plan of Care Note [code = 44180-3] Goal Plan of Care Note [code = 33460-0] Goal Plan of Care Note [code = 78548-7] Goal Plan of Care Note [code = 73857-5] Goal Plan of Care Note [code = 41555-0] Goal Plan of Care Note [code = 39512-3] Goal Plan of Care Note [code = 23730-4] Goal Plan of Care Note [code = 75365-0] Goal Plan of Care Note [code = 73372-2] Goal Plan of Care Note [code = 53891-7] Goal Plan of Care Note [code = 28489-7] Goal Plan of Care Note [code = 68215-8] Goal Plan of Care Note [code = 22998-6] Goal Plan of Care Note [code = 34026-5] Goal Plan of Care Note [code = 36840-4] Goal Plan of Care Note [code = 29920-8] Goal Plan of Care Note [code = 17157-1] Goal Plan of Care Note [code = 62847-7] Goal Plan of Care Note [code = 71081-0] Goal Plan of Care Note [code = 35064-4] Goal Plan of Care Note [code = 88360-5] Goal Plan of Care Note [code = 68208-4] Goal Plan of Care Note [code = 23454-4] Goal Plan of Care Note [code = 45733-5] Goal Plan of Care Note [code = 05801-3] Goal Plan of Care Note [code = 72822-8] Goal Plan of Care Note [code = 08775-1] Goal Plan of Care Note [code = 62553-6] Goal Plan of Care Note [code = 10186-5] Goal Plan of Care Note [code = 21443-3] Goal Plan of Care Note [code = 45552-5] Goal Plan of Care Note [code = 34189-1] Goal Plan of Care Note [code = 89605-5] Goal Plan of Care Note [code = 14014-4] Goal Plan of Care Note [code = 13431-4] Goal Plan of Care Note [code = 59832-9] Goal Plan of Care Note [code = 70914-7] Goal Plan of Care Note [code = 80466-0] Goal Plan of Care Note [code = 07912-6] Goal Plan of Care Note [code = 77715-4] Goal Plan of Care Note [code = 62210-5] Goal Plan of Care Note [code = 10715-8] Goal Plan of Care Note [code = 44801-8] Goal Plan of Care Note [code = 73075-7] Goal Plan of Care Note [code = 41225-2] Goal Plan of Care Note [code = 94938-8] Goal Plan of Care Note [code = 35533-6] Goal Plan of Care Note [code = 85292-3] Goal Plan of Care Note [code = 16121-6] Goal Plan of Care Note [code = 74140-0] Goal Plan of Care Note [code = 40710-9] Goal Plan of Care Note [code = 92071-5] Goal Plan of Care Note [code = 24938-1] Goal Plan of Care Note [code = 46061-7] Goal Plan of Care Note [code = 09336-1] Goal Plan of Care Note [code = 91676-2] Goal Plan of Care Note [code = 79590-7] Goal Plan of Care Note [code = 66056-8] Goal Plan of Care Note [code = 27128-0] Goal Plan of Care Note [code = 18349-3] Goal Plan of Care Note [code = 08709-6] Goal Plan of Care Note [code = 16656-5] Goal Plan of Care Note [code = 35058-2] Goal Plan of Care Note [code = 94195-2] Goal Plan of Care Note [code = 15686-7] Goal Plan of Care Note [code = 49199-4] Goal Plan of Care Note [code = 63509-7] Goal Plan of Care Note [code = 44954-5] Goal Plan of Care Note [code = 61745-3] Goal Plan of Care Note [code = 48022-1] Goal Plan of Care Note [code = 54442-9] Goal Plan of Care Note [code = 76969-5] Goal Plan of Care Note [code = 64239-2] Goal Plan of Care Note [code = 33290-6] Goal Plan of Care Note [code = 83508-7] Goal Plan of Care Note [code = 10456-3] Goal Plan of Care Note [code = 45754-8] Goal Plan of Care Note [code = 54710-8] Goal Plan of Care Note [code = 68582-2] Goal Plan of Care Note [code = 15284-7] Goal Plan of Care Note [code = 65129-3] Goal Plan of Care Note [code = 08785-6] Goal Plan of Care Note [code = 70874-2] Goal Plan of Care Note [code = 67787-9] Goal Plan of Care Note [code = 74594-7] Goal Plan of Care Note [code = 73730-1] Goal Plan of Care Note [code = 85210-1] Goal Plan of Care Note [code = 29883-0] Goal Plan of Care Note [code = 74455-6] Goal Plan of Care Note [code = 03446-2] Goal Plan of Care Note [code = 67210-4] Goal Plan of Care Note [code = 93969-3] Goal Plan of Care Note [code = 99524-7] Goal Plan of Care Note [code = 07429-6] Goal Plan of Care Note [code = 26772-7] Goal Plan of Care Note [code = 12296-7] Goal Plan of Care Note [code = 91275-4] Goal Plan of Care Note [code = 26228-9] Goal Plan of Care Note [code = 36742-6] Goal Plan of Care Note [code = 80880-4] Goal Plan of Care Note [code = 73469-7] Goal Plan of Care Note [code = 95738-5] Goal Plan of Care Note [code = 49708-9] Goal Plan of Care Note [code = 44057-9] Goal Plan of Care Note [code = 08409-3] Goal Plan of Care Note [code = 60039-4] Goal Plan of Care Note [code = 24319-4] Goal Plan of Care Note [code = 93962-7] Goal Plan of Care Note [code = 92447-5] Goal Plan of Care Note [code = 78893-8] Goal Plan of Care Note [code = 93998-4] Goal Plan of Care Note [code = 65108-0] Goal Plan of Care Note [code = 25882-3] Goal Plan of Care Note [code = 42901-7] Goal Plan of Care Note [code = 13203-9] Goal Plan of Care Note [code = 26108-6] Goal Plan of Care Note [code = 08136-4] Goal Plan of Care Note [code = 53407-8] Goal Plan of Care Note [code = 95971-3] Goal Plan of Care Note [code = 56966-0] Goal Plan of Care Note [code = 95176-0] Goal Plan of Care Note [code = 54169-2] Goal Plan of Care Note [code = 98100-9] Goal Plan of Care Note [code = 04711-4] Goal Plan of Care Note [code = 30257-9] Goal Plan of Care Note [code = 78459-7] Goal Plan of Care Note [code = 56642-7] Goal Plan of Care Note [code = 56743-8] Goal Plan of Care Note [code = 78560-3] Goal Plan of Care Note [code = 75250-1] Goal Plan of Care Note [code = 05705-1] Goal Plan of Care Note [code = 33716-0] Goal Plan of Care Note [code = 40639-4] Goal Plan of Care Note [code = 74169-0] Goal Plan of Care Note [code = 77356-1] Goal Plan of Care Note [code = 72930-3] Goal Plan of Care Note [code = 96416-0] Goal Plan of Care Note [code = 99884-7] Goal Plan of Care Note [code = 48228-7] Goal Plan of Care Note [code = 70540-7] Goal Plan of Care Note [code = 15911-4] Goal Plan of Care Note [code = 63232-1] Goal Plan of Care Note [code = 09366-9] Goal Plan of Care Note [code = 57419-6] Goal Plan of Care Note [code = 42863-2] Goal Plan of Care Note [code = 55204-0] Goal Plan of Care Note [code = 41842-6] Goal Plan of Care Note [code = 79322-9] Goal Plan of Care Note [code = 21938-9] Goal Plan of Care Note [code = 74880-1] Goal Plan of Care Note [code = 37285-2] Goal Plan of Care Note [code = 48568-4] Goal Plan of Care Note [code = 51294-0] Goal Plan of Care Note [code = 17079-5] Goal Plan of Care Note [code = 55645-9] Goal Plan of Care Note [code = 93980-1] Goal Plan of Care Note [code = 71240-8] Goal Plan of Care Note [code = 16542-0] Goal Plan of Care Note [code = 38083-1] Goal Plan of Care Note [code = 96375-9] Goal Plan of Care Note [code = 08903-5] Goal Plan of Care Note [code = 79239-7] Goal Plan of Care Note [code = 70561-4] Goal Plan of Care Note [code = 70831-4] Goal Plan of Care Note [code = 13155-2] Goal Plan of Care Note [code = 10977-3] Goal Plan of Care Note [code = 89482-3] Goal Plan of Care Note [code = 29921-8] Goal Plan of Care Note [code = 33276-3] Goal Plan of Care Note [code = 67960-6] Goal Plan of Care Note [code = 66691-6] Goal Plan of Care Note [code = 24206-4] Goal Plan of Care Note [code = 80927-9] Goal Plan of Care Note [code = 25584-6] Goal Plan of Care Note [code = 26208-1] Goal Plan of Care Note [code = 86779-0] Goal Plan of Care Note [code = 06108-0] Goal Plan of Care Note [code = 08136-4] Goal Plan of Care Note [code = 51469-3] Goal Plan of Care Note [code = 48087-1] Goal Plan of Care Note [code = 50765-3] Goal Plan of Care Note [code = 41859-5] Goal Plan of Care Note [code = 08007-2] Goal Plan of Care Note [code = 32356-8] Goal Plan of Care Note [code = 95284-2] Goal Plan of Care Note [code = 57890-5] Goal Plan of Care Note [code = 74901-1] Goal Plan of Care Note [code = 05675-4] Goal Plan of Care Note [code = 42600-0] Goal Plan of Care Note [code = 47943-3] Goal Plan of Care Note [code = 65374-8] Goal Plan of Care Note [code = 10077-6] Goal Plan of Care Note [code = 58451-0] Goal Plan of Care Note [code = 88575-1] Goal Plan of Care Note [code = 06664-4] Goal Plan of Care Note [code = 20132-8] Goal Plan of Care Note [code = 95464-7] Goal Plan of Care Note [code = 47522-5] Goal Plan of Care Note [code = 49477-7] Goal Plan of Care Note [code = 90149-9] Goal Plan of Care Note [code = 13807-0] Goal Plan of Care Note [code = 06981-1] Goal Plan of Care Note [code = 82765-4] Goal Plan of Care Note [code = 55654-8] Goal Plan of Care Note [code = 76095-9] Goal Plan of Care Note [code = 57146-2] Goal Plan of Care Note [code = 22467-3] Goal Plan of Care Note [code = 79097-5] Goal Plan of Care Note [code = 58117-3] Goal Plan of Care Note [code = 10462-0] Goal Plan of Care Note [code = 23639-5] Goal Plan of Care Note [code = 54795-1] Goal Plan of Care Note [code = 12559-0] Goal Plan of Care Note [code = 72048-8] Goal Plan of Care Note [code = 89583-3] Goal Plan of Care Note [code = 45923-7] Goal Plan of Care Note [code = 33357-6] Goal Plan of Care Note [code = 14836-2] Goal Plan of Care Note [code = 85307-3] Goal Plan of Care Note [code = 14109-4] Goal Plan of Care Note [code = 96438-6] Goal Plan of Care Note [code = 04154-6] Goal Plan of Care Note [code = 97063-3] Goal Plan of Care Note [code = 40301-8] Goal Plan of Care Note [code = 79455-9] Goal Plan of Care Note [code = 30858-3] Goal Plan of Care Note [code = 96684-8] Goal Plan of Care Note [code = 67848-1] Goal Plan of Care Note [code = 77735-0] Goal Plan of Care Note [code = 01200-0] Goal Plan of Care Note [code = 27901-3] Goal Plan of Care Note [code = 49192-1] Goal Plan of Care Note [code = 45537-2] Goal Plan of Care Note [code = 89868-7] Goal Plan of Care Note [code = 19726-1] Goal Plan of Care Note [code = 68165-8] Goal Plan of Care Note [code = 24833-4] Goal Plan of Care Note [code = 87035-7] Goal Plan of Care Note [code = 98171-7] Goal Plan of Care Note [code = 75369-1] Goal Plan of Care Note [code = 39309-5] Goal Plan of Care Note [code = 99921-5] Goal Plan of Care Note [code = 40921-8] Goal Plan of Care Note [code = 96582-3] Goal Plan of Care Note [code = 48629-9] Goal Plan of Care Note [code = 32826-9] Goal Plan of Care Note [code = 68751-2] Goal Plan of Care Note [code = 20794-6] Goal Plan of Care Note [code = 03442-8] Goal Plan of Care Note [code = 08455-8] Goal Plan of Care Note [code = 88742-7] Goal Plan of Care Note [code = 14684-8] Goal Plan of Care Note [code = 06183-4] Goal Plan of Care Note [code = 02831-2] Goal Plan of Care Note [code = 21819-0] Goal Plan of Care Note [code = 05214-4] Goal Plan of Care Note [code = 29739-7] Goal Plan of Care Note [code = 95267-1] Goal Plan of Care Note [code = 09114-2] Goal Plan of Care Note [code = 65200-9] Goal Plan of Care Note [code = 17761-8] Goal Plan of Care Note [code = 39972-9] Goal Plan of Care Note [code = 94125-8] Goal Plan of Care Note [code = 68811-2] Goal Plan of Care Note [code = 60085-2] Goal Plan of Care Note [code = 31114-6] Goal Plan of Care Note [code = 65824-4] Goal Plan of Care Note [code = 46726-3] Goal Plan of Care Note [code = 11588-3] Goal Plan of Care Note [code = 03178-5] Goal Plan of Care Note [code = 57903-8] Goal Plan of Care Note [code = 15860-5] Goal Plan of Care Note [code = 83287-6] Goal Plan of Care Note [code = 70745-7] Goal Plan of Care Note [code = 57017-1] Goal Plan of Care Note [code = 70779-7] Goal Plan of Care Note [code = 52395-9] Goal Plan of Care Note [code = 79360-5] Goal Plan of Care Note [code = 13364-0] Goal Plan of Care Note [code = 45131-2] Goal Plan of Care Note [code = 81371-8] Goal Plan of Care Note [code = 44955-5] Goal Plan of Care Note [code = 51625-6] Goal Plan of Care Note [code = 01711-1] Goal Plan of Care Note [code = 52854-4] Goal Plan of Care Note [code = 25776-4] Goal Plan of Care Note [code = 13920-3] Goal Plan of Care Note [code = 29426-0] Goal Plan of Care Note [code = 89380-9] Goal Plan of Care Note [code = 15870-2] Goal Plan of Care Note [code = 69197-4] Goal Plan of Care Note [code = 04418-9] Goal Plan of Care Note [code = 90879-4] Goal Plan of Care Note [code = 18268-6] Goal Plan of Care Note [code = 48139-0] Goal Plan of Care Note [code = 81671-7] Goal Plan of Care Note [code = 54063-2] Goal Plan of Care Note [code = 23890-1] Goal Plan of Care Note [code = 37999-2] Goal Plan of Care Note [code = 26458-2] Goal Plan of Care Note [code = 17675-8] Goal Plan of Care Note [code = 16123-7] Goal Plan of Care Note [code = 95695-4] Goal Plan of Care Note [code = 95488-4] Goal Plan of Care Note [code = 66789-0] Goal Plan of Care Note [code = 36849-3] Goal Plan of Care Note [code = 97689-2] Goal Plan of Care Note [code = 44699-3] Goal Plan of Care Note [code = 01568-3] Goal Plan of Care Note [code = 78002-4] Goal Plan of Care Note [code = 62027-5] Goal Plan of Care Note [code = 90836-4] Goal Plan of Care Note [code = 30710-0] Goal Plan of Care Note [code = 91861-4] Goal Plan of Care Note [code = 02130-1] Goal Plan of Care Note [code = 79989-1] Goal Plan of Care Note [code = 75829-0] Goal Plan of Care Note [code = 58106-7] Goal Plan of Care Note [code = 50298-3] Goal Plan of Care Note [code = 27378-7] Goal Plan of Care Note [code = 85705-3] Goal Plan of Care Note [code = 74661-7] Goal Plan of Care Note [code = 97766-3] Goal Plan of Care Note [code = 18223-9] Goal Plan of Care Note [code = 62598-7] Goal Plan of Care Note [code = 73043-4] Goal Plan of Care Note [code = 99913-4] Goal Plan of Care Note [code = 68011-3] Goal Plan of Care Note [code = 50349-5] Goal Plan of Care Note [code = 52028-0] Goal Plan of Care Note [code = 49574-6] Goal Plan of Care Note [code = 81543-4] Goal Plan of Care Note [code = 94158-9] Goal Plan of Care Note [code = 35012-5] Goal Plan of Care Note [code = 91672-2] Goal Plan of Care Note [code = 11393-9] Goal Plan of Care Note [code = 37213-9] Goal Plan of Care Note [code = 06635-4] Goal Plan of Care Note [code = 83375-4] Goal Plan of Care Note [code = 16740-5] Goal Plan of Care Note [code = 14270-5] Goal Plan of Care Note [code = 10790-1] Goal Plan of Care Note [code = 19499-4] Goal Plan of Care Note [code = 11055-6] Goal Plan of Care Note [code = 55552-0] Goal Plan of Care Note [code = 33066-1] Goal Plan of Care Note [code = 36644-9] Goal Plan of Care Note [code = 40340-0] Goal Plan of Care Note [code = 08104-3] Goal Plan of Care Note [code = 05623-6] Goal Plan of Care Note [code = 70899-1] Goal Plan of Care Note [code = 52186-9] Goal Plan of Care Note [code = 83419-8] Goal Plan of Care Note [code = 86351-9] Goal Plan of Care Note [code = 19941-9] Goal Plan of Care Note [code = 37110-1] Goal Plan of Care Note [code = 51241-7] Goal Plan of Care Note [code = 80773-2] Goal Plan of Care Note [code = 78807-2] Goal Plan of Care Note [code = 50885-8] Goal Plan of Care Note [code = 22165-7] Goal Plan of Care Note [code = 10225-6] Goal Plan of Care Note [code = 54316-8] Goal Plan of Care Note [code = 55216-2] Goal Plan of Care Note [code = 97848-8] Goal Plan of Care Note [code = 84839-9] Goal Plan of Care Note [code = 14000-8] Goal Plan of Care Note [code = 39966-7] Goal Plan of Care Note [code = 00152-0] Goal Plan of Care Note [code = 01465-9] Goal Plan of Care Note [code = 44679-0] Goal Plan of Care Note [code = 92105-3] Goal Plan of Care Note [code = 76923-7] Goal Plan of Care Note [code = 17048-6] Goal Plan of Care Note [code = 64318-2] Goal Plan of Care Note [code = 03341-0] Goal Plan of Care Note [code = 20663-8] Goal Plan of Care Note [code = 54844-0] Goal Plan of Care Note [code = 10086-8] Goal Plan of Care Note [code = 39040-4] Goal Plan of Care Note [code = 63217-4] Goal Plan of Care Note [code = 01771-3] Goal Plan of Care Note [code = 97017-2] Goal Plan of Care Note [code = 47599-6] Goal Plan of Care Note [code = 06050-3] Goal Plan of Care Note [code = 54498-3] Goal Plan of Care Note [code = 83606-8] Goal Plan of Care Note [code = 27245-8] Goal Plan of Care Note [code = 22847-3] Goal Plan of Care Note [code = 55301-4] Goal Plan of Care Note [code = 30706-5] Goal Plan of Care Note [code = 77463-0] Goal Plan of Care Note [code = 35271-0] Goal Plan of Care Note [code = 37296-5] Goal Plan of Care Note [code = 17299-9] Goal Plan of Care Note [code = 34197-1] Goal Plan of Care Note [code = 66424-5] Goal Plan of Care Note [code = 29851-9] Goal Plan of Care Note [code = 37907-5] Goal Plan of Care Note [code = 08066-0] Goal Plan of Care Note [code = 75658-5] Goal Plan of Care Note [code = 79404-3] Goal Plan of Care Note [code = 23639-8] Goal Plan of Care Note [code = 64451-7] Goal Plan of Care Note [code = 21197-6] Goal Plan of Care Note [code = 12743-3] Goal Plan of Care Note [code = 22673-8] Goal Plan of Care Note [code = 27876-0] Goal Plan of Care Note [code = 48684-1] Goal Plan of Care Note [code = 26304-9] Goal Plan of Care Note [code = 67420-0] Goal Plan of Care Note [code = 41587-4] Goal Plan of Care Note [code = 08717-8] Goal Plan of Care Note [code = 40692-1] Goal Plan of Care Note [code = 35764-8] Goal Plan of Care Note [code = 72891-0] Goal Plan of Care Note [code = 40172-2] Goal Plan of Care Note [code = 17020-8] Goal Plan of Care Note [code = 30125-0] Goal Plan of Care Note [code = 99649-8] Goal Plan of Care Note [code = 58882-4] Goal Plan of Care Note [code = 70653-8] Goal Plan of Care Note [code = 37349-0] Goal Plan of Care Note [code = 57552-9] Goal Plan of Care Note [code = 72644-2] Goal Plan of Care Note [code = 47556-5] Goal Plan of Care Note [code = 31932-0] Goal Plan of Care Note [code = 37041-6] Goal Plan of Care Note [code = 44218-0] Goal Plan of Care Note [code = 88256-2] Goal Plan of Care Note [code = 14079-7] Goal Plan of Care Note [code = 58620-7] Goal Plan of Care Note [code = 27020-5] Goal Plan of Care Note [code = 43760-7] Goal Plan of Care Note [code = 24182-1] Goal Plan of Care Note [code = 33756-3] Goal Plan of Care Note [code = 58762-3] Goal Plan of Care Note [code = 20573-3] Goal Plan of Care Note [code = 71731-3] Goal Plan of Care Note [code = 63801-5] Goal Plan of Care Note [code = 86013-8] Goal Plan of Care Note [code = 79556-9] Goal Plan of Care Note [code = 75838-3] Goal Plan of Care Note [code = 73787-7] Goal Plan of Care Note [code = 77606-0] Goal Plan of Care Note [code = 09535-2] Goal Plan of Care Note [code = 27903-4] Goal Plan of Care Note [code = 28148-7] Goal Plan of Care Note [code = 02318-3] Goal Plan of Care Note [code = 01356-9] Goal Plan of Care Note [code = 82284-7] Goal Plan of Care Note [code = 46671-2] Goal Plan of Care Note [code = 21255-4] Goal Plan of Care Note [code = 08022-0] Goal Plan of Care Note [code = 43682-6] Goal Plan of Care Note [code = 74059-2] Goal Plan of Care Note [code = 20589-5] Goal Plan of Care Note [code = 17905-3] Goal Plan of Care Note [code = 55904-1] Goal Plan of Care Note [code = 46603-6] Goal Plan of Care Note [code = 77990-7] Goal Plan of Care Note [code = 90156-2] Goal Plan of Care Note [code = 60273-4] Goal Plan of Care Note [code = 88132-2] Goal Plan of Care Note [code = 91156-5] Goal Plan of Care Note [code = 12656-8] Goal Plan of Care Note [code = 56519-8] Goal Plan of Care Note [code = 29694-4] Goal Plan of Care Note [code = 42199-0] Goal Plan of Care Note [code = 47553-4] Goal Plan of Care Note [code = 61860-3] Goal Plan of Care Note [code = 84366-9] Goal Plan of Care Note [code = 31962-0] Goal Plan of Care Note [code = 85554-9] Goal Plan of Care Note [code = 99831-6] Goal Plan of Care Note [code = 13372-0] Goal Plan of Care Note [code = 27343-0] Goal Plan of Care Note [code = 00894-2] Goal Plan of Care Note [code = 48853-6] Goal Plan of Care Note [code = 75633-3] Goal Plan of Care Note [code = 87133-3] Goal Plan of Care Note [code = 12942-9] Goal Plan of Care Note [code = 43917-1] Goal Plan of Care Note [code = 50925-8] Goal Plan of Care Note [code = 03293-3] Goal Plan of Care Note [code = 26999-6] Goal Plan of Care Note [code = 60393-9] Goal Plan of Care Note [code = 93881-2] Goal Plan of Care Note [code = 33652-3] Goal Plan of Care Note [code = 51176-3] Goal Plan of Care Note [code = 53176-3] Goal Plan of Care Note [code = 14915-3] Goal Plan of Care Note [code = 45066-3] Goal Plan of Care Note [code = 48290-8] Goal Plan of Care Note [code = 66040-9] Goal Plan of Care Note [code = 85978-7] Goal Plan of Care Note [code = 19578-1] Goal Plan of Care Note [code = 76361-2] Goal Plan of Care Note [code = 15337-2] Goal Plan of Care Note [code = 63038-4] Goal Plan of Care Note [code = 85047-9] Goal Plan of Care Note [code = 28776-7] Goal Plan of Care Note [code = 32160-5] Goal Plan of Care Note [code = 95076-4] Goal Plan of Care Note [code = 30307-6] Goal Plan of Care Note [code = 08259-0] Goal Plan of Care Note [code = 25528-1] Goal Plan of Care Note [code = 47565-5] Goal Plan of Care Note [code = 20622-3] Goal Plan of Care Note [code = 89468-1] Goal Plan of Care Note [code = 38371-5] Goal Plan of Care Note [code = 14939-6] Goal Plan of Care Note [code = 57130-7] Goal Plan of Care Note [code = 03423-5] Goal Plan of Care Note [code = 85658-4] Goal Plan of Care Note [code = 52772-2] Goal Plan of Care Note [code = 17157-5] Goal Plan of Care Note [code = 98318-5] Goal Plan of Care Note [code = 04422-0] Goal Plan of Care Note [code = 09096-3] Goal Plan of Care Note [code = 42152-6] Goal Plan of Care Note [code = 25212-8] Goal Plan of Care Note [code = 60237-7] Goal Plan of Care Note [code = 83819-6] Goal Plan of Care Note [code = 58095-5] Goal Plan of Care Note [code = 35317-3] Goal Plan of Care Note [code = 85429-2] Goal Plan of Care Note [code = 24399-5] Goal Plan of Care Note [code = 16737-6] Goal Plan of Care Note [code = 31011-9] Goal Plan of Care Note [code = 68892-3] Goal Plan of Care Note [code = 60337-5] Goal Plan of Care Note [code = 57314-3] Goal Plan of Care Note [code = 22346-3] Goal Plan of Care Note [code = 31734-6] Goal Plan of Care Note [code = 06882-2] Goal Plan of Care Note [code = 30027-5] Goal Plan of Care Note [code = 60314-8] Goal Plan of Care Note [code = 46690-8] Goal Plan of Care Note [code = 92654-1] Goal Plan of Care Note [code = 64672-1] Goal Plan of Care Note [code = 17307-5] Goal Plan of Care Note [code = 51332-9] Goal Plan of Care Note [code = 91619-8] Goal Plan of Care Note [code = 70294-8] Goal Plan of Care Note [code = 64196-4] Goal Plan of Care Note [code = 06677-9] Goal Plan of Care Note [code = 83929-7] Goal Plan of Care Note [code = 87309-2] Goal Plan of Care Note [code = 37759-3] Goal Plan of Care Note [code = 79494-4] Goal Plan of Care Note [code = 45489-8] Goal Plan of Care Note [code = 84301-0] Goal Plan of Care Note [code = 95747-9] Goal Plan of Care Note [code = 77208-7] Goal Plan of Care Note [code = 57796-8] Goal Plan of Care Note [code = 85525-5] Goal Plan of Care Note [code = 98402-7] Goal Plan of Care Note [code = 64971-6] Goal Plan of Care Note [code = 20534-5] Goal Plan of Care Note [code = 76724-4] Goal Plan of Care Note [code = 21528-7] Goal Plan of Care Note [code = 36635-5] Goal Plan of Care Note [code = 95458-3] Goal Plan of Care Note [code = 63086-5] Goal Plan of Care Note [code = 28950-4] Goal Plan of Care Note [code = 92562-6] Goal Plan of Care Note [code = 97520-0] Goal Plan of Care Note [code = 41259-4] Goal Plan of Care Note [code = 99022-8] Goal Plan of Care Note [code = 02854-3] Goal Plan of Care Note [code = 93005-5] Goal Plan of Care Note [code = 88656-4] Goal Plan of Care Note [code = 06461-9] Goal Plan of Care Note [code = 74086-2] Goal Plan of Care Note [code = 19815-1] Goal Plan of Care Note [code = 72343-3] Goal Plan of Care Note [code = 37905-7] Goal Plan of Care Note [code = 69673-8] Goal Plan of Care Note [code = 59581-5] Goal Plan of Care Note [code = 53819-3] Goal Plan of Care Note [code = 61052-1] Goal Plan of Care Note [code = 83536-9] Goal Plan of Care Note [code = 87072-3] Encounters Start End Encounter Admission Attending Care Care Encounter Source Date/Time Date/Time Type Type Clinicians Facility Department ID 2021-05-10 Emergency [facility] [id number] [facility] 15:04:50 [facility] 2021-05-08 Emergency [facility] [id number] [facility] 16:08:38 [facility] 2020-08-08 Inpatient Bebeto Valderrama [facility] RADI [id number] [facility] 15:30:00 59 [facility] 2020-08-02 Inpatient [facility] CARISSA [id number] [facility] 13:01:00 80 [facility] 2020-02-13 Inpatient [facility] CARISSA [id number] [facility] 19:15:00 41 [facility] 2020-01-16 Inpatient ERICA Wilson [facility] SURG [id number] [facility] 16:00:00 Tomiko 97 [facility] 2022-12-17 2022-12-17 Outpatient ANDREEA PEOPLES [id number] [place]reea 15:00:00 15:00:00 NETO love 2022-11-30 2022-11-30 Outpatient ANDREEA MCCLELLAND [id number] [place]reea 13:50:00 13:50:00 JUDI love 2022-11-24 2022-11-24 Outpatient ANDREEA PEOPLES [id number] [place]reea 15:00:00 15:00:00 NETO Traoreol ivan 2022-11-03 2022-11-03 Emergency [facility] [id number] Univers 08:26:00 11:02:00 aKtelyn BARBER 350.1.13.10 i ty [facility] 4.2.7.2.686 [facility] [id number] [place] [address] [address] 2022-11-03 2022-11-03 [id number] Univers 08:26:00 11:02:00 KATELYN diaz of [facility] 2022-11-01 2022-11-01 Outpatient SFA SFA [id number] Huang 16:16:49 16:16:49 0424 F Quirino 2022-11-01 2022-11-01 Outpatient ANDREEA PEOPLES [id number] [place] 16:00:00 16:00:00 NETO love 2022-11-01 2022-11-01 Outpatient ANDREEA PEOPLES [id number] [place] 00:00:00 00:00:00 NETO Traoreol d 2022-10-27 2022-10-27 Outpatient NOAH, ANDREEA BRAGA [id number] [place] 14:00:00 14:00:00 FABIO Seybol d 2022-10-26 2022-10-26 Outpatient PREZAS, ANDREEA BRAAG [id number] [place] 00:00:00 00:00:00 NETO Seybol d 2022-10-26 2022-10-26 Outpatient PREZAS, ANDREEA BRAGA [id number] [place] 00:00:00 00:00:00 NETO Seybol d 2022-10-22 2022-10-22 Outpatient RAGINI, ANDREEA BRAGA [id number] [place] 16:45:00 16:45:00 NICOLÁS Seybol d 2022-10-21 2022-10-21 Outpatient THORPE ORLY ANDREEA BRAGA [id number] [place] 10:00:00 10:00:00 Seybol d 2022-10-01 2022-10-01 Outpatient PREZAS, ANDREEA RBAGA [id number] [place] 15:45:00 15:45:00 NETO Seybol d 2022-09-24 2022-09-24 Outpatient JARBRINK-SE ANDREEA BRAGA [id number] [place] 15:00:00 15:00:00 HGYRIS MARIE Se ybold 2022-09-21 2022-09-21 Outpatient PREZAS, ANDREEA BRAGA [id number] [place] 15:00:00 15:00:00 NETO Seybol d 2022-09-20 2022-09-20 Outpatient PREZASANDREEA [id number] [place]reea 00:00:00 00:00:00 NETO Seybol d 2022-09-10 2022-09-10 Outpatient RAGINI, ANDREEA BRAGA [id number] [place] 10:30:00 10:30:00 NICOLÁS Seybol d 2022-09-09 2022-09-09 Outpatient PREZASANDREEA [id number] [place] 00:00:00 00:00:00 NETO Seybol d 2022-09-09 2022-09-09 Outpatient PREZASANDREEA [id number] [place] 00:00:00 00:00:00 NETO Seybol d 2022-09-08 2022-09-08 Outpatient LAB90 ANDREEA ANDREEA [id number] [place] 08:00:00 08:00:00 Seybol d 2022-09-07 2022-09-07 Outpatient ANDREEA PEOPLES ANDREEA [id number] [place] 15:00:00 15:00:00 NETO Seybol d 2022-09-01 2022-09-01 Transition JIE Hargrove 1.2.840.114 [id number] Univers 00:00:00 00:00:00 of Care Leslie RIVERA 350.1.13.10 [id number] [facility] [address] 2022-08-26 2022-08-30 Inpatient X KAMALA [facility] ANTONIO [id number] Univers 14:36:00 10:41:[address] [facility] 2022-08-26 2022-08-30 [facility] Robert [facility] 1.2.840. 114 [id number] Univers 14:36:00 10:41:00 Encounter LarisadeanMeri 350.1.13.10 ity [facility] [place] [id number] [facility] [address] 2022-07-09 2022-07-[address] [facility] SFA [id number] Huang 09:41:12 09:41:12 1230 F Quirino 2022-07-09 2022-07-09 Outpatient [id number] 9d [id number] 00:00:00 00:00:00 Visit t01b-4ez6 40c-4fc9-a -e3jw-838 8bb-636dec whjq2330c g5750a 2022-06-23 2022-06-23 Outpatient [id number]- [id number] 00:00:00 00:00:00 Visit 0i6s-53d8 k4w-99z8-k -y4q8-r09 5z1-x793lx [id number] 2022-06-21 2022-06-21 Emergency X LONI NYCLAIR ERT [id number] Univers 17:30:00 23:11:[address] [facility] 2022-06-21 2022-06-21 Emergency Loni [facility] [id number] [facility] 17:30:00 23:11:00 Katelyn BARBER 350.1.13.10 i [facility] [id number] [facility] [id number] [address] 2022-06-18 2022-06-18 Outpatient SFA SFA [id number] 022 Huang 10:29:22 10:29:22 1209 F Quirino 2022-06-18 2022-06-18 Outpatient 2fi7dkq4- [id number] r3tpj4-m 00:00:00 00:00:00 Visit yj3o-7ps0 a5g-8wo1-m -q158-m43 058-f3801n 88juhn861 yif136 2022-06-17 2022-06-17 Outpatient SFA SFA [id number] 022 Huang 08:29:59 08:29:59 1208 F Quirino 2022-06-16 2022-06-16 Outpatient SFA SFA [id number] 022 Huang 15:41:26 15:41:26 1207 F Quirino 2022-06-16 2022-06-16 Outpatient [id number]- [id number] 2f 117v3u-t 00:00:00 00:00:00 Visit dee3-4499 ee3-4499-9 -917d-e2d 17d-t3y285 [id number] 89202w 2022-06-04 2022-06-04 Outpatient SFA SFA [id number] 022 Huang 11:59:44 11:59:44 1125 F Quirino 2022-06-02 2022-06-02 Outpatient 08x12q6v- [id number] j22e5y-6 00:00:00 00:00:00 Visit 756a-4a2e 56a-4a2e-b -d784-d25 549-j7807w 54h6874n9 9815d6 2022-04-29 2022-04-29 Outpatient SFA SFA [id number] 022 Huang 08:03:25 08:03:25 1020 F Quirino 2022-04-29 2022-04-29 Outpatient [id number]- [id number] 1ry590-4 00:00:00 00:00:00 Visit 1kw5-2n74 bd7-4b85-9 -940e-c2d 40e-c2dfc3 [id number] 6006-10-14 2022-04-23 Outpatient io6s6978- [id number] 0y3293-s 00:00:00 00:00:00 Visit ej55-5psa z54-7tqw-9 -924a-d01 24a-d01f5f g8f5si23h 4eb17f 2022-04-09 2022-04-09 Outpatient SFA SFA [id number] 022 Huang 08:02:18 08:02:18 0930 F Quirino 2022-04-09 2022-04-09 Outpatient [id number]- [id number] t93601-3 00:00:00 00:00:00 Visit 7d36-84i6 g60-26h9-7 -8750-031 750-0319bb 8cqsy3850 uj0482 2022-03-29 2022-03-29 Outpatient [id number] 409154-[id number] 00:00:00 00:00:00 Visit p882-52e4 701-46a9-a -s3j0-t23 2u9-k76705 7411v70o7 3d26f8 2022-03-16 2022-03-16 Telephone [facility], 1.2.840.1 [id number] Methodi 00:00:00 00:00:[address] [place] 3.430.2.7 Hospit a Arik .3.077743 l .8 2022-03-16 2022-03-[address] [facility] [place] 1.2.840.1 [id number] Methodi 00:00:00 00:00:[address] [facility] 3.430.2.7 Hospit a Arik .3.648502 l .8 2022-03-11 2022-03-11 Telephone Ernst, 1.2.840.1 [id number] [id number] Methodi 00:00:00 00:00:[address] [place] 3.430.2.7 Hospit a Arik .3.900001 l .8 2022-03-11 2022-03-11 Telephone Ernst, 1.2.840.1 [id number] 2099 [id number] Methodi 00:00:00 00:00:[address] [facility] 3.430.2.7 Hospit a Arik .3.998665 l .8 2022-03-09 2022-03-09 Outpatient [id number]- [id number] d6 v62351-g 00:00:00 00:00:00 Visit h99v-385q 56a-450d-9 -7x9n-14w h6j-44l520 [id number] [id number] 2022-01-20 2022-01-20 Outpatient 6lh10dhy- [id number] 0f y30wsy-8 00:00:00 00:00:00 Visit 8baf-464d baf-464d-a -x92w-507 91e-31623u 53aanb97k aeb84a 2021-10-16 2021-10-16 Emergency X ALESHA [facility] ERT [id number] Univers 16:39:00 22:23:[address] [facility] 2021-10-16 2021-10-16 Emergency Alesha [facility] 1.2.820.213 [id number] Univers 16:39:00 22:23:00 Beatriz BARBER 350.1.13.10 [facility] 4.2.7.2.686 [facility] [id number] [address] 2021-09-22 2021-09-22 Emergency X [facility] ERT [id number] Univers 09:56:00 12:05:[address] [facility] 2021-09-22 2021-09-22 Emergency Singer [facility] 1.2.553.809 [id number] Univers 09:56:00 12:05:00 Jn BARBER 350.1.13.10 i ty kristyn STUART 4.2.7.2.686 [facility] [id number] [address] 2021-08-20 2021-08-20 [facility] 1.2.840.114 [id number] Univers 00:00:00 00:00:00 [facility] 350.1.13.10 it y [facility] 4.2.7.2.686 Blake as DANIELITO?BLEA [id number] [address] MEDICAL OFFICE BUILDING 2021-07-31 2021-07-31 Outpatient ERICA Bebeto Qu[facility] Y000 [id number] [facility] 05:47:00 05:47:00 00 [facility] 2021-06-18 2021-06-18 Emergency X [facility] ERT [id number] Univers 04:31:00 08:25:[address] [facility] 2021-06-18 2021-06-18 Emergency [facility] 1.2.863.666 [id number] Univers 04:31:00 08:25:00 Fozia BARBER 350.1.13.10 ity kristyn [facility] 4.2.7.2.686 [facility] [phone] [address] 2021-06-10 2021-06-10 Outpatient [facility] [id number] [place] 00:00:00 00:00:[address] 2021-06-10 2021-06-10 Travel 1.2.840.1 1.2.548.188 [id number] Methodi 00:00:00 00:00:[address] 3.430.2.7 0.2.7.3.698 Ho spita .3.066181 084.8 l .8 2021-06-08 2021-06-08 Telephone Ernst, 1.2.840.1 [id number] 2099 [id number] Methodi 00:00:00 00:00:[address] [facility] 3.430.2.7 Hospit hannah Elise .3.631715 l .8 2021-05-30 2021-05-30 Emergency X MISTY [facility] ERT [id number] Univers 15:49:00 19:42:00 MARY [facility] 2021-05-30 2021-05-30 Emergency [facility] 1.2.824.417 [id number] Univers 15:49:00 19:42:00 Mary S [place] 350.1.13.10 i ty of [place] 4.2.7.2.686 [facility] [id number] [address] 2021-03-17 2021-03-17 Ref[facility]ake [facility] 1.2.179.700 [id number] Univers 00:00:00 00:00:00 Doron Barber 350.1.13.10 i ty of [place] 4.2.7.2.686 [facility] Azleessio [id number] Ma dical nal 220 [facility] 2021-02-27 2021-02-27 Out[facility] [id number] Univers 15:00:00 15:00:00 DORON [facility] 2020-12-23 2020-12-23 Outpatient [facility] [id number] Univers 16:00:00 16:00:00 FABIO [facility] 2020-12-10 2020-12-10 Outpatient R LISA [facility] [id number] Univers 09:00:00 09:53:04 SENDYAKELIN [facility] 2020-12-02 2020-12-04 Outpatient X KENYA [facility] ANTONIO [id number] Univers 19:53:00 17:23:00 FOZIA [facility] 2020-11-07 2020-11-07 Outpatient R [facility] [id number] Univers 13:30:00 13:30:00 DORON [facility] 2020-06-02 2020-06-02 Telephone [facility] 1.2.840.114 [id number] 00:00:00 00:00:00 Lily Barber 350.1.13.10 [place] 4.2.7.2.686 [id number] [address] 2020-05-29 2020-05-29 Outpatient R LUIS [facility] [id number] Univers 15:15:00 15:15:00 LESLEE [facility] 2020-05-27 2020-05-27 [facility] 1.2.110.681 [id number] 10:59:24 11:54:17 Visit Lily Barber 350.1.13.10 [place] 4.2.7.2.686 Professio [id number] [address] 2020-05-27 2020-05-27 Outpatient R [facility] [id number] [facility] 10:45:00 10:45:00 LILY [facility] 2020-05-27 2020-05-27 Orders Doctor JACOBS 1.2.840.114 [id number] 00:00:00 00:00:00 Only Unassigned, BENITA 350.1.13.[address] [facility] 4.2.7.2.686 [id number] 009 2020-01-10 2020-01-10 Outpatient PRANAY WilsonCL LABO [id number] [facility] 18:46:00 18:46:00 Tomiko 24 [facility] 2020-01-04 2020-01-04 Outpatient PRANAY WilsonTO RADI [id number] [facility] 13:00:00 13:00:00 Tomiko 18 [facility] 2019-12-12 2019-12-12 Outpatient Anupama USN [facility] [id number] [facility] 16:30:00 16:30:00 STANISLAW [facility] 2019-12-07 2019-12-07 Outpatient Anupama GRIJALVA [facility] [id number] Univers 09:00:00 09:00:[address] [facility] 2019-11-22 2019-11-22 [facility] [id number] [place] 00:00:00 00:00:00 SILVINA porras 2019-11-06 2019-11-06 [facility] [id number] [place] 00:00:00 00:00:00 SILVINA 632 [place] 2019-11-01 2019-11-01 Outpatient ANTOSH, [facility] [id number] [place] 00:00:00 00:00:00 SILVINA 554 [place] 2019-10-30 2019-10-30 Outpatient GALAN, [facility] [id number] [place] 00:00:00 00:00:00 ABHIJIT 714 Method i 2019-10-18 2019-10-18 Outpatient ANTOSH, [facility] [id number] [place] 00:00:00 00:00:00 SILVINA 629 [place] 2019-10-02 2019-10-02 Outpatient ANTOSH, [facility] [id number] [place] 00:00:00 00:00:00 SILVINA 105 [place] 2019-10-01 2019-10-01 Outpatient ANTOSH, [facility] [id number] [place] 00:00:00 00:00:00 SILVINA 439 [place] 2019-09-19 2019-09-19 Outpatient ANTOSH, [facility] [id number] [place] 00:00:00 00:00:00 SILVINA 116 [place] 2019-09-11 2019-09-11 Outpatient Anupama SUN, [facility] [id number] [facility] 10:30:00 10:30:00 STANISLAW [facility] 2019-09-10 2019-09-10 Outpatient GALAN, [facility] [id number] [place] 00:00:00 00:00:00 ABHIJIT 420 Method i 2019-09-10 2019-09-10 Outpatient ANTOSH, [facility] [id number] [place] 00:00:00 00:00:00 SILVINA 373 [place] 2019-09-10 2019-09-10 Outpatient ANTOSH, [facility] [id number] [place] 00:00:00 00:00:00 SILVINA 354 [place] 2019-08-23 2019-08-23 Outpatient Anupama DELEON, [facility] [id number] Univers 16:15:00 10:31:44 LILY [facility] 2019-08-15 2019-08-15 Outpatient Anupama DELEON, [facility] [id number] Univers 09:15:00 09:44:[address] [facility] 2019-07-07 2019-07-07 Emergency X KENYA [facility] ERT [id number] Univers 10:13:53 13:06:[address] [facility] 2010-08-05 2010-08-07 Inpatient OUTP Kit Lopez [facility]AT[facility] SURG [id number] [facility] 16:20:00 14:00:00 00 [facility] [place] [facility] Results Test Description Test Time Test Comments Results Result Comments Source LIPID PANEL (33211)(TOTAL CHOLESTEROL, TRIGLYCERIDES, HDL) 2 14:32:57 Test Item Value Reference Range Interpretation Comme nts CHOL (test code = 4315981164) 236 mg/dL 120-200 H HDL (test code = 6321168445) 32 mg/dL >=50 L HDLC RATIO (test code = 7.4 <=4.5 H 9420137636) TRIG (test code = 1485560056) 667 mg/dL 30-170 H LDL CHOL (test code = 66579-2) Unable to calculate LDL due to elevated trigly ceride level greater than 40 0 mg/dL. VLDL (test code = 0236214084) 133 mg/dL 5-60 H Lab Interpretation (test code = Abnormal 81841-2) [facility] (NA, K, CL, CO2, GLUCOSE, BUN, CREATININE, CA)2022-11-03 14:18:35 Test Item Value Reference Range Interpretation Comments NA (test code = 139 mmol/L 135-145 5103601609) K (test code = 4.4 mmol/L 3.5-5.0 9793591397) CL (test code = 105 mmol/L 98-108 5689042897) CO2 TOTAL (test code = 23 mmol/L 23-31 8641601900) AGAP (test code = 11 2-16 0468341925) BUN (test code = 12 mg/dL 7-23 1920621767) GLUCOSE (test code = 279 mg/dL 70-110 H 3969431236) CREATININE (test code = 0.59 mg/dL 0.50-1.04 8780444368) CALCIUM (test code = 9.8 mg/dL 8.6-10.6 9033292888) eGFR (test code = 110.7 mL/min/1.73m2 0759897751) CALVIN (test code = CALVIN) Association of [...] tests). Lab Interpretation Abnormal (test code = 35644-9) [facility] (47972) (ALB,T.PRO,BILI T,BU/BC,ALT,AST,ALK PHOS)2022-11-03 14:18:35 Test Item Value Reference Range Interpretation Comments TOTAL BILI (test code = 7014732366) 0.8 mg/dL 0.1-1.1 BILI UNCON (test code = 2700687665) 0.6 mg/dL 0.1-1.1 BILI CONJ (test code = 4087195795) 0.0 mg/dL 0.0-0.3 T PROTEIN (test code = 7782647145) 8.5 g/dL 6.3-8.2 H ALBUMIN (test code = 9021671777) 4.9 g/dL 3.5-5.0 ALK PHOS (test code = 4925715540) 48 U/L 34-122 ALTv (test code = 1742-6) 60 U/L 5-35 H AST(SGOT) (test code = 8790852320) 56 U/L 13-40 H Lab Interpretation (test code = Abnormal 52800-1) [facility] 14:18:15 Test Item Value Reference Range Interpretation Comments LIPASE (test code = 4967596617) 240 U/L 0-220 H Lab Interpretation (test code = Abnormal 83969-0) [facility] WITH OXTM7664-08-04 14:01:29 Test Item Value Reference Range Interpretation Comments WBC (test code = 6.73 See_Comment [Automated 9545-2) message] The sy stem which generated this result transmitted reference range : 4.30 - 11.10 10*3/?L. The reference range was not used to interpret this result as normal/abnormal . RBC (test code = 4.90 See_Comment [Automated 638-8) message] The sy stem which generated this result transmitted reference range : 3.93 - 5.25 10*6/?L. The reference range was not used to interpret this result as normal/abnormal . HGB (test code = 13.2 g/dL 11.6-15.0 718-7) HCT (test code = 41.5 % 35.7-45.2 4544-3) MCV (test code = 84.7 fL 80.6-95.5 787-2) MCH (test code = 26.9 pg 25.9-32.8 785-6) MCHC (test code = 31.8 g/dL 31.6-35.1 786-4) RDW-SD (test code = 39.7 fL 39.0-49.9 66893-1) RDW-CV (test code = 13.0 % 12.0-15.5 788-0) PLT (test code = 252 See_Comment [Automated 167-3) message] The sy stem which generated this result transmitted reference range : 166 - 358 10*3/ ?L. The reference r doretha was not used to interpret this result as normal/abnormal . MPV (test code = 9.4 fL 9.5-12.9 L 83779-9) NRBC/100 WBC (test 0.0 See_Comment [Automat ed code = 9453844131) message] The system which generated this result transmitted reference range : 0.0 - 10.0 /100 WBCs. The refer ence range was not u sed to interpret th is result as normal/abnormal . NRBC x10^3 (test code See_Comment [Auto mated = 5023905078) message] The s ystem which generated this result transmitted reference range : 10*3/?L. The reference range was not used to interpret this result as normal/abnormal . GRAN MAT (NEUT) % 54.5 % (test code = 770-8) IMM GRAN % (test code 0.70 % = 6117606732) LYMPH % (test code = 34.3 % 736-9) MONO % (test code = 7.4 % 5905-5) EOS % (test code = 2.1 % 713-8) BASO % (test code = 1.0 % 706-2) GRAN MAT x10^3(ANC) 3.66 10*3/uL 1.88-7.09 (test code = 9862502463) IMM GRAN x10^3 (test 0.05 10*3/uL 0.00-0.06 code = 2608245019) LYMPH x10^3 (test code 2.31 10*3/uL 1.32-3.29 = 731-0) MONO x10^3 (test code 0.50 10*3/uL 0.33-0.92 = 742-7) EOS x10^3 (test code = 0.14 10*3/uL 0.03-0.39 711-2) BASO x10^3 (test code 0.07 10*3/uL 0.01-0.07 = 704-7) Lab Interpretation Abnormal (test code = 95859-3) [facility] STRIP/BLOOD AQLOAKA3673-67-05 00:00:00 Test Item Value Reference Range Interpretation Comments BLOOD SUGAR (test code = 746546) 260 mg/dL 65-99 A Lab Interpretation (test code = Abnormal 16590-4) Andreea Corona [facility] GLUCOSE (AUTOMATED)2022-08-30 14:54:37 Test Item Value Reference Range Interpretation Comments POCT GLU (test code = 2426631686) 123 mg/dL 70-110 H Lab Interpretation (test code = Abnormal 92390-7) [facility] GLUCOSE (AUTOMATED)2022-08-30 13:07:24 Test Item Value Reference Range Interpretation Comments POCT GLU (test code = 0825698383) 130 mg/dL 70-110 H Lab Interpretation (test code = Abnormal 69572-5) [facility] GLUCOSE (AUTOMATED)2022-08-30 12:05:08 Test Item Value Reference Range Interpretation Comments POCT GLU (test code = 8323968974) 136 mg/dL 70-110 H Lab Interpretation (test code = Abnormal 33914-3) [facility] GLUCOSE (AUTOMATED)2022-08-30 11:08:07 Test Item Value Reference Range Interpretation Comments POCT GLU (test code = 8842388825) 115 mg/dL 70-110 H Lab Interpretation (test code = Abnormal 25595-9) [facility] GLUCOSE (AUTOMATED)2022-08-30 10:21:27 Test Item Value Reference Range Interpretation Comments POCT GLU (test code = 6719086314) 111 mg/dL 70-110 H Lab Interpretation (test code = Abnormal 87510-4) [facility] GLUCOSE (AUTOMATED)2022-08-30 09:12:24 Test Item Value Reference Range Interpretation Comments POCT GLU (test code = 8104881641) 121 mg/dL 70-110 H Lab Interpretation (test code = Abnormal 57889-5) [facility] GLUCOSE (AUTOMATED)2022-08-30 08:11:01 Test Item Value Reference Range Interpretation Comments POCT GLU (test code = 7100042898) 137 mg/dL 70-110 H Lab Interpretation (test code = Abnormal 86825-8) [facility] 07:47:30 Test Item Value Reference Range Interpretation Comments POCT GLU (test code = 8479811626) 134 mg/dL 70-110 H Lab Interpretation (test code = Abnormal 66608-2) [facility] GLUCOSE (AUTOMATED)2022-08-30 06:32:02 Test Item Value Reference Range Interpretation Comments POCT GLU (test code = 0871856371) 128 mg/dL 70-110 H Lab Interpretation (test code = Abnormal 14569-4) [facility] GLUCOSE (AUTOMATED)2022-08-30 05:05:59 Test Item Value Reference Range Interpretation Comments POCT GLU (test code = 8586062085) 157 mg/dL 70-110 H Lab Interpretation (test code = Abnormal 35259-3) [facility] GLUCOSE (AUTOMATED)2022-08-30 04:14:51 Test Item Value Reference Range Interpretation Comments POCT GLU (test code = 6269293381) 181 mg/dL 70-110 H Lab Interpretation (test code = Abnormal 97114-1) [facility] GLUCOSE (AUTOMATED)2022-08-30 03:07:48 Test Item Value Reference Range Interpretation Comments POCT GLU (test code = 7578851380) 150 mg/dL 70-110 H Lab Interpretation (test code = Abnormal 40488-8) [facility] GLUCOSE (AUTOMATED)2022-08-30 02:26:22 Test Item Value Reference Range Interpretation Comments POCT GLU (test code = 8844047793) 118 mg/dL 70-110 H Lab Interpretation (test code = Abnormal 57337-9) [facility] GLUCOSE (AUTOMATED)2022-08-30 01:05:37 Test Item Value Reference Range Interpretation Comments POCT GLU (test code = 1132506350) 150 mg/dL 70-110 H Lab Interpretation (test code = Abnormal 34794-2) [facility] GLUCOSE (AUTOMATED)2022-08-30 00:05:56 Test Item Value Reference Range Interpretation Comments POCT GLU (test code = 0646669978) 206 mg/dL 70-110 H Lab Interpretation (test code = Abnormal 88175-7) [facility] GLUCOSE (AUTOMATED)2022-08-29 23:02:06 Test Item Value Reference Range Interpretation Comments POCT GLU (test code = 2603390856) 172 mg/dL 70-110 H Lab Interpretation (test code = Abnormal 74900-3) [facility] GLUCOSE (AUTOMATED)2022-08-29 22:07:12 Test Item Value Reference Range Interpretation Comments POCT GLU (test code = 0100524849) 110 mg/dL 70-110 Lab Interpretation (test code = Normal 46137-5) [facility] GLUCOSE (AUTOMATED)2022-08-29 21:14:06 Test Item Value Reference Range Interpretation Comments POCT GLU (test code = 3659442939) 118 mg/dL 70-110 H Lab Interpretation (test code = Abnormal 50018-5) [facility] GLUCOSE (AUTOMATED)2022-08-29 20:09:27 Test Item Value Reference Range Interpretation Comments POCT GLU (test code = 0778909285) 104 mg/dL 70-110 Lab Interpretation (test code = Normal 58444-5) [facility] GLUCOSE (AUTOMATED)2022-08-29 19:11:06 Test Item Value Reference Range Interpretation Comments POCT GLU (test code = 3662589654) 101 mg/dL 70-110 Lab Interpretation (test code = Normal 45088-7) [facility] GLUCOSE (AUTOMATED)2022-08-29 18:15:25 Test Item Value Reference Range Interpretation Comments POCT GLU (test code = 2315040241) 125 mg/dL 70-110 H Lab Interpretation (test code = Abnormal 24095-6) [facility] GLUCOSE (AUTOMATED)2022-08-29 17:11:12 Test Item Value Reference Range Interpretation Comments POCT GLU (test code = 9053344398) 116 mg/dL 70-110 H Lab Interpretation (test code = Abnormal 14949-1) [facility] GLUCOSE (AUTOMATED)2022-08-29 16:16:36 Test Item Value Reference Range Interpretation Comments POCT GLU (test code = 9454185662) 139 mg/dL 70-110 H Lab Interpretation (test code = Abnormal 38594-6) [facility] GLUCOSE (AUTOMATED)2022-08-29 15:08:34 Test Item Value Reference Range Interpretation Comments POCT GLU (test code = 1255035151) 159 mg/dL 70-110 H Lab Interpretation (test code = Abnormal 28932-9) [facility] GLUCOSE (AUTOMATED)2022-08-29 14:18:05 Test Item Value Reference Range Interpretation Comments POCT GLU (test code = 7770117996) 147 mg/dL 70-110 H Lab Interpretation (test code = Abnormal 87070-0) [facility]29 13:22:04 Test Item Value Reference Range Interpretation Comments POCT GLU (test code = 7940233482) 151 mg/dL 70-110 H Lab Interpretation (test code = Abnormal 80948-5) [facility] GLUCOSE (AUTOMATED)2022-08-29 12:11:27 Test Item Value Reference Range Interpretation Comments POCT GLU (test code = 1874686081) 163 mg/dL 70-110 H Lab Interpretation (test code = Abnormal 83368-9) [facility] GLUCOSE (AUTOMATED)2022-08-29 10:58:04 Test Item Value Reference Range Interpretation Comments POCT GLU (test code = 7828592231) 162 mg/dL 70-110 H Lab Interpretation (test code = Abnormal 22174-5) [facility] GLUCOSE (AUTOMATED)2022-08-29 10:03:25 Test Item Value Reference Range Interpretation Comments POCT GLU (test code = 9942256526) 184 mg/dL 70-110 H Lab Interpretation (test code = Abnormal 33020-6) [facility] GLUCOSE (AUTOMATED)2022-08-29 09:10:58 Test Item Value Reference Range Interpretation Comments POCT GLU (test code = 8085180461) 176 mg/dL 70-110 H Lab Interpretation (test code = Abnormal 36366-8) [facility] GLUCOSE (AUTOMATED)2022-08-29 08:04:18 Test Item Value Reference Range Interpretation Comments POCT GLU (test code = 1455541476) 158 mg/dL 70-110 H Lab Interpretation (test code = Abnormal 18687-4) [facility] GLUCOSE (AUTOMATED)2022-08-29 07:09:28 Test Item Value Reference Range Interpretation Comments POCT GLU (test code = 7560828744) 137 mg/dL 70-110 H Lab Interpretation (test code = Abnormal 26263-8) [facility]2022-08-29 06:07:41 Test Item Value Reference Range Interpretation Comments POCT GLU (test code = 2395075386) 136 mg/dL 70-110 H Lab Interpretation (test code = Abnormal 28764-0) [facility] GLUCOSE (AUTOMATED)2022-08-29 05:12:21 Test Item Value Reference Range Interpretation Comments POCT GLU (test code = 0178970382) 151 mg/dL 70-110 H Lab Interpretation (test code = Abnormal 03857-3) [facility] 04:11:30 Test Item Value Reference Range Interpretation Comments POCT GLU (test code = 8666367851) 166 mg/dL 70-110 H Lab Interpretation (test code = Abnormal 40077-6) [facility] GLUCOSE (AUTOMATED)2022-08-29 03:21:25 Test Item Value Reference Range Interpretation Comments POCT GLU (test code = 6880598932) 185 mg/dL 70-110 H Lab Interpretation (test code = Abnormal 68410-9) [facility] GLUCOSE (AUTOMATED)2022-08-29 02:13:24 Test Item Value Reference Range Interpretation Comments POCT GLU (test code = 4882931630) 139 mg/dL 70-110 H Lab Interpretation (test code = Abnormal 08020-2) [facility] GLUCOSE (AUTOMATED)2022-08-29 01:03:43 Test Item Value Reference Range Interpretation Comments POCT GLU (test code = 2980501605) 144 mg/dL 70-110 H Lab Interpretation (test code = Abnormal 22495-5) [facility] GLUCOSE (AUTOMATED)2022-08-29 00:27:52 Test Item Value Reference Range Interpretation Comments POCT GLU (test code = 3029993385) 193 mg/dL 70-110 H Lab Interpretation (test code = Abnormal 12590-9) [facility] GLUCOSE (AUTOMATED)2022-08-28 23:18:19 Test Item Value Reference Range Interpretation Comments POCT GLU (test code = 0388467513) 162 mg/dL 70-110 H Lab Interpretation (test code = Abnormal 57913-8) [facility] 22:25:29 Test Item Value Reference Range Interpretation Comments POCT GLU (test code = 8685502836) 163 mg/dL 70-110 H Lab Interpretation (test code = Abnormal 57022-1) [facility] GLUCOSE (AUTOMATED)2022-08-28 21:06:41 Test Item Value Reference Range Interpretation Comments POCT GLU (test code = 4981217093) 179 mg/dL 70-110 H Lab Interpretation (test code = Abnormal 15331-7) [facility]2022-08-28 20:08:24 Test Item Value Reference Range Interpretation Comments POCT GLU (test code = 7334060242) 159 mg/dL 70-110 H Lab Interpretation (test code = Abnormal 96101-3) [facility] GLUCOSE (AUTOMATED)2022-08-28 19:08:09 Test Item Value Reference Range Interpretation Comments POCT GLU (test code = 1219883351) 129 mg/dL 70-110 H Lab Interpretation (test code = Abnormal 68987-6) [facility] GLUCOSE (AUTOMATED)2022-08-28 18:16:18 Test Item Value Reference Range Interpretation Comments POCT GLU (test code = 3502395656) 106 mg/dL 70-110 Lab Interpretation (test code = Normal 77607-5) [facility] GLUCOSE (AUTOMATED)2022-08-28 17:06:55 Test Item Value Reference Range Interpretation Comments POCT GLU (test code = 4660597975) 136 mg/dL 70-110 H Lab Interpretation (test code = Abnormal 59325-9) [facility] GLUCOSE (AUTOMATED)2022-08-28 16:05:13 Test Item Value Reference Range Interpretation Comments POCT GLU (test code = 5689709111) 141 mg/dL 70-110 H Lab Interpretation (test code = Abnormal 42003-1) [facility] GLUCOSE (AUTOMATED)2022-08-28 15:04:57 Test Item Value Reference Range Interpretation Comments POCT GLU (test code = [id number]) 168 mg/dL 70-110 H Lab Interpretation (test code = Abnormal 42760-0) [facility] GLUCOSE (AUTOMATED)2022-08-28 14:10:31 Test Item Value Reference Range Interpretation Comments POCT GLU (test code = [id number]) 163 mg/dL 70-110 H Lab Interpretation (test code = Abnormal 42826-9) [facility] GLUCOSE (AUTOMATED)2022-08-28 13:07:27 Test Item Value Reference Range Interpretation Comments POCT GLU (test code = [id number]) 133 mg/dL 70-110 H Lab Interpretation (test code = Abnormal 76567-9[facility]:10 Test Item Value Reference Range Interpretation Comments POCT GLU (test code = 0515291499) 150 mg/dL 70-110 H Lab Interpretation (test code = Abnormal 31184-2) [facility]56 Test Item Value Reference Range Interpretation Comments TRIG (test code = 3075284657) 1527 mg/dL 30-170 H Lab Interpretation (test code = Abnormal 32352-9) [facility] (NA, K, CL, CO2, GLUCOSE, BUN, CREATININE, CA)2022-08-28 12:02:28 Test Item Value Reference Range Interpretation Comments NA (test code = 137 mmol/L 135-145 2122641542) K (test code = 4.0 mmol/L 3.5-5.0 6671801265) CL (test code = 112 mmol/L 98-108 H 0436620386) CO2 TOTAL (test code = 19 mmol/L 23-31 L 4502772177) AGAP (test code = 6 2-16 2248519198) BUN (test code = 9 mg/dL 7-23 2607401717) GLUCOSE (test code = 157 mg/dL 70-110 H 9364996661) CREATININE (test code = 0.53 mg/dL 0.50-1.04 7354745100) CALCIUM (test code = 7.2 mg/dL 8.6-10.6 L 4527986595) eGFR (test code = 125.3 mL/min/1.73m2 5550365772) CALVIN (test code = CALVIN) Association of [...] tests). Lab Interpretation Abnormal (test code = 84050-2) [facility] GLUCOSE (AUTOMATED)2022-08-28 11:34:27 Test Item Value Reference Range Interpretation Comments POCT GLU (test code = 2959933698) 139 mg/dL 70-110 H Lab Interpretation (test code = Abnormal 89525-5) [facility] GLUCOSE (AUTOMATED)2022-08-28 10:08:58 Test Item Value Reference Range Interpretation Comments POCT GLU (test code = 6923334208) 159 mg/dL 70-110 H Lab Interpretation (test code = Abnormal 81097-2) [facility] GLUCOSE (AUTOMATED)2022-08-28 09:03:44 Test Item Value Reference Range Interpretation Comments POCT GLU (test code = 6281401008) 138 mg/dL 70-110 H Lab Interpretation (test code = Abnormal 24652-2) [facility] GLUCOSE (AUTOMATED)2022-08-28 08:09:23 Test Item Value Reference Range Interpretation Comments POCT GLU (test code = 9637622739) 134 mg/dL 70-110 H Lab Interpretation (test code = Abnormal 46694-8) [facility] GLUCOSE (AUTOMATED)2022-08-28 06:02:02 Test Item Value Reference Range Interpretation Comments POCT GLU (test code = 8690875613) 159 mg/dL 70-110 H Lab Interpretation (test code = Abnormal 63626-8) [facility] GLUCOSE (AUTOMATED)2022-08-28 05:07:18 Test Item Value Reference Range Interpretation Comments POCT GLU (test code = 2895660607) 132 mg/dL 70-110 H Lab Interpretation (test code = Abnormal 70723-6) [facility] 04:03:46 Test Item Value Reference Range Interpretation Comments POCT GLU (test code = 2707767187) 132 mg/dL 70-110 H Lab Interpretation (test code = Abnormal 24234-3) [facility] 03:06:02 Test Item Value Reference Range Interpretation Comments POCT GLU (test code = 9429559582) 161 mg/dL 70-110 H Lab Interpretation (test code = Abnormal 58786-1) [facility] GLUCOSE (AUTOMATED)2022-08-28 02:11:59 Test Item Value Reference Range Interpretation Comments POCT GLU (test code = 9244401064) 152 mg/dL 70-110 H Lab Interpretation (test code = Abnormal 05870-0) [facility] GLUCOSE (AUTOMATED)2022-08-28 01:13:55 Test Item Value Reference Range Interpretation Comments POCT GLU (test code = 1050133917) 154 mg/dL 70-110 H Lab Interpretation (test code = Abnormal 06037-6) [facility] 00:04:53 Test Item Value Reference Range Interpretation Comments POCT GLU (test code = 7619140590) 171 mg/dL 70-110 H Lab Interpretation (test code = Abnormal 01563-9) [facility] GLUCOSE (AUTOMATED)2022-08-27 23:36:39 Test Item Value Reference Range Interpretation Comments POCT GLU (test code = 9011064273) 192 mg/dL 70-110 H Lab Interpretation (test code = Abnormal 69335-9) [facility]-27 22:12:56 Test Item Value Reference Range Interpretation Comments POCT GLU (test code = 7671477690) 209 mg/dL 70-110 H Lab Interpretation (test code = Abnormal 42586-9) [facility] GLUCOSE (AUTOMATED)2022-08-27 21:04:44 Test Item Value Reference Range Interpretation Comments POCT GLU (test code = 0175969251) 173 mg/dL 70-110 H Lab Interpretation (test code = Abnormal 06958-2) [facility]22-08-27 20:46:25 Test Item Value Reference Range Interpretation Comments POCT GLU (test code = 3126897793) 104 mg/dL 70-110 Lab Interpretation (test code = Normal 74015-3) [facility] GLUCOSE (AUTOMATED)2022-08-27 19:02:38 Test Item Value Reference Range Interpretation Comments POCT GLU (test code = 7142316613) 156 mg/dL 70-110 H Lab Interpretation (test code = Abnormal 22022-8) [facility] GLUCOSE (AUTOMATED)2022-08-27 18:04:27 Test Item Value Reference Range Interpretation Comments POCT GLU (test code = 6337370952) 146 mg/dL 70-110 H Lab Interpretation (test code = Abnormal 30304-7) [facility] GLUCOSE (AUTOMATED)2022-08-27 17:01:16 Test Item Value Reference Range Interpretation Comments POCT GLU (test code = 5282738703) 152 mg/dL 70-110 H Lab Interpretation (test code = Abnormal 43244-3) [facility] GLUCOSE (AUTOMATED)2022-08-27 16:14:54 Test Item Value Reference Range Interpretation Comments POCT GLU (test code = 8896606576) 173 mg/dL 70-110 H Lab Interpretation (test code = Abnormal 99904-2) [facility] GLUCOSE (AUTOMATED)2022-08-27 15:15:33 Test Item Value Reference Range Interpretation Comments POCT GLU (test code = 0961763538) 128 mg/dL 70-110 H Lab Interpretation (test code = Abnormal 18390-5) [facility] GLUCOSE (AUTOMATED)2022-08-27 14:21:55 Test Item Value Reference Range Interpretation Comments POCT GLU (test code = 0035692440) 128 mg/dL 70-110 H Lab Interpretation (test code = Abnormal 55097-9) [facility] GLUCOSE (AUTOMATED)2022-08-27 13:24:52 Test Item Value Reference Range Interpretation Comments POCT GLU (test code = 4367514234) 140 mg/dL 70-110 H Lab Interpretation (test code = Abnormal 84724-2) [facility] GLUCOSE (AUTOMATED)2022-08-27 12:09:47 Test Item Value Reference Range Interpretation Comments POCT GLU (test code = 5493030202) 167 mg/dL 70-110 H Lab Interpretation (test code = Abnormal 90105-8) [facility] GLUCOSE (AUTOMATED)2022-08-27 11:09:03 Test Item Value Reference Range Interpretation Comments POCT GLU (test code = 1833257919) 148 mg/dL 70-110 H Lab Interpretation (test code = Abnormal 36067-7) [facility] GLUCOSE (AUTOMATED)2022-08-27 10:16:49 Test Item Value Reference Range Interpretation Comments POCT GLU (test code = 3715341140) 129 mg/dL 70-110 H Lab Interpretation (test code = Abnormal 44055-8) [facility] GLUCOSE (AUTOMATED)2022-08-27 09:21:11 Test Item Value Reference Range Interpretation Comments POCT GLU (test code = 2249157964) 145 mg/dL 70-110 H Lab Interpretation (test code = Abnormal 41051-1) [facility] GLUCOSE (AUTOMATED)2022-08-27 07:01:10 Test Item Value Reference Range Interpretation Comments POCT GLU (test code = 0770553815) 126 mg/dL 70-110 H Lab Interpretation (test code = Abnormal 15055-2) [facility] GLUCOSE (AUTOMATED)2022-08-27 06:14:53 Test Item Value Reference Range Interpretation Comments POCT GLU (test code = 6299916900) 154 mg/dL 70-110 H Lab Interpretation (test code = Abnormal 60668-7) [facility] 05:41:57 Test Item Value Reference Range Interpretation Comments LIPASE (test code = 1152940184) 197 U/L 0-220 Lab Interpretation (test code = Normal 47908-3) [facility] GLUCOSE (AUTOMATED)2022-08-27 05:13:21 Test Item Value Reference Range Interpretation Comments POCT GLU (test code = 3350820119) 163 mg/dL 70-110 H Lab Interpretation (test code = Abnormal 35988-7) [facility]LOW-DENSITY LIPOPROTEIN, [id number] 04:16:58 Test Item Value Reference Range Interpretation Comments dLDL Chol (test code = 95002-6) 63 mg/dL <=130 Lab Interpretation (test code = Normal 42406-4) [facility] HospitalOSMOLALITY, SERUM OR [id number] 04:12:04 Test Item Value Reference Range Interpretation Comments OSMOLALITY (test code = 319 See_Comment H [Au tomated message] 4042-2) The system [employer] generated this result transmitted ref erence range: 278 - 30 5 mOsm/kg. The reference range was not used to int erpret this result as normal/abnormal . Lab Interpretation (test Abnormal code = 40271-0) [facility]2022-08-27 03:17:19 Test Item Value Reference Range Interpretation Comments POCT GLU (test code = 0242162588) 244 mg/dL 70-110 H Lab Interpretation (test code = Abnormal 92215-6) [facility] (NA, K, CL, CO2, GLUCOSE, BUN, CREATININE, CA)2022-08-27 02:55:11 Test Item Value Reference Range Interpretation Comments NA (test code = 134 mmol/L 135-145 L 8069971502) K (test code = 4.3 mmol/L 3.5-5.0 5478195944) CL (test code = 103 mmol/L 98-108 6702171680) CO2 TOTAL (test code = 19 mmol/L 23-31 L 8276141369) AGAP (test code = 12 2-16 5670194241) BUN (test code = 25 mg/dL 7-23 H 8966778595) GLUCOSE (test code = 277 mg/dL 70-110 H 0952807464) CREATININE (test code = 0.77 mg/dL 0.50-1.04 8222292490) CALCIUM (test code = 8.2 mg/dL 8.6-10.6 L 8087798688) eGFR (test code = 81.4 mL/min/1.73m2 3075177604) CALVIN (test code = CALVIN) Association of [...] tests). Lab Interpretation Abnormal (test code = 38305-5) [facility] GLUCOSE (AUTOMATED)2022-08-27 02:03:06 Test Item Value Reference Range Interpretation Comments POCT GLU (test code = 0457385054) 322 mg/dL 70-110 H Lab Interpretation (test code = Abnormal 96841-2) [facility] GLUCOSE (AUTOMATED)2022-08-27 01:25:59 Test Item Value Reference Range Interpretation Comments POCT GLU (test code = 9977661914) 324 mg/dL 70-110 H Lab Interpretation (test code = Abnormal 11159-3) [facility] GLUCOSE (AUTOMATED)2022-08-27 00:32:23 Test Item Value Reference Range Interpretation Comments POCT GLU (test code = 8324253629) 372 mg/dL 70-110 H Lab Interpretation (test code = Abnormal 00779-8) [facility] GLUCOSE (AUTOMATED)2022-08-27 00:00:02 Test Item Value Reference Range Interpretation Comments POCT GLU (test code = 2140587560) 382 mg/dL 70-110 H Lab Interpretation (test code = Abnormal 02633-7) [facility] GLUCOSE (AUTOMATED)2022-08-26 23:10:50 Test Item Value Reference Range Interpretation Comments POCT GLU (test code = 1324907488) 409 mg/dL 70-110 H Lab Interpretation (test code = Abnormal 38940-9) [facility] HospitalLIPID PANEL (27715)(TOTAL CHOLESTEROL, TRIGLYCERIDES, HDL)2022-08-26 22:34:41 Test Item Value Reference Range Interpretation Comments CHOL (test code = 381 mg/dL 120-200 H 8998314928) HDL (test code = 25 mg/dL >=50 L 2742092242) HDLC RATIO (test code = 15.2 <=4.5 H 9677708943) TRIG (test code = 30-170 H 0238278187) LDL CHOL (test code = Unable to calculate 08488-1) LDL due to elev ated triglyceride le jossy greater than 40 0 mg/dL. VLDL (test code = Unable to calculate 1228401700) VLDL due to [place] vated triglyceride le jossy greater than 71 0 mg/dL. Lab Interpretation Abnormal (test code = 22382-9) [facility] GLUCOSE (AUTOMATED)2022-08-26 22:11:52 Test Item Value Reference Range Interpretation Comments POCT GLU (test code = 9286881298) 375 mg/dL 70-110 H Lab Interpretation (test code = Abnormal 66531-9) [facility]. METABOLIC PANEL (63553)2022-08-26 22:06:45 Test Item Value Reference Range Interpretation Comments NA (test code = 131 mmol/L 135-145 L 2291864984) K (test code = 5.4 mmol/L 3.5-5.0 H 8608402901) CL (test code = 95 mmol/L 98-108 L 2402917853) CO2 TOTAL (test code = 9 mmol/L 23-31 L 8306070933) AGAP (test code = 27 2-16 H 2799228482) BUN (test code = 29 mg/dL 7-23 H 0491412917) GLUCOSE (test code = 444 mg/dL 70-110 H 2993310510) CREATININE (test code = 1.01 mg/dL 0.50-1.04 0241838223) TOTAL BILI (test code = 0.9 mg/dL 0.1-1.9 5042742155) CALCIUM (test code = 9.2 mg/dL 8.6-10.6 5182597558) T PROTEIN (test code = 9.4 g/dL 6.3-8.2 H 4723010913) ALBUMIN (test code = 4.8 g/dL 3.5-5.0 7298121806) ALK PHOS (test code = 79 U/L 34-122 4160454418) ALTv (test code = 43 U/L 5-35 H 1742-6) AST(SGOT) (test code = 42 U/L 13-40 H 9519672731) eGFR (test code = 59.5 mL/min/1.73m2 4702722941) CALVIN (test code = CALVIN) Association of [...] tests). Lab Interpretation Abnormal (test code = 83250-6) [facility]UM[facility] 22:02:31 Test Item Value Reference Range Interpretation Comments MAGNESIUM (test code = 2758999621) 1.7 mg/dL 1.7-2.4 Lab Interpretation (test code = Normal 45581-2) [facility] WITH [id number] 21:22:43 Test Item Value Reference Range Interpretation Comments WBC (test code = 9.75 See_Comment [Automated 6690-2) message] The sy stem which generated this result transmitted reference range : 4.30 - 11.10 10*3/?L. The reference range was not used to interpret this result as normal/abnormal . RBC (test code = 4.71 See_Comment [Automated 789-8) message] The sy stem which generated this result transmitted reference range : 3.93 - 5.25 10*6/?L. The reference range was not used to interpret this result as normal/abnormal . HGB (test code = 14.6 g/dL 11.6-15.0 718-7) HCT (test code = 39.9 % 35.7-45.2 4544-3) MCV (test code = 84.7 fL 80.6-95.5 787-2) MCH (test code = 31.0 pg 25.9-32.8 785-6) MCHC (test code = 36.6 g/dL 31.6-35.1 H 786-4) RDW-SD (test code = 43.3 fL 39.0-49.9 90920-2) RDW-CV (test code = 14.4 % 12.0-15.5 788-0) PLT (test code = 371 See_Comment H [Automated 777-3) message] The sy stem which generated this result transmitted reference range : 166 - 358 10*3/ ?L. The reference r doretha was not used to interpret this result as normal/abnormal . MPV (test code = 10.2 fL 9.5-12.9 41665-3) NRBC/100 WBC (test 0.0 See_Comment [Automat ed code = 0289502089) message] The system which generated this result transmitted reference range : 0.0 - 10.0 /100 WBCs. The refer ence range was not u sed to interpret th is result as normal/abnormal . NRBC x10^3 (test code See_Comment [Auto mated = 7525191814) message] The s ystem which generated this result transmitted reference range : 10*3/?L. The reference range was not used to interpret this result as normal/abnormal . GRAN MAT (NEUT) % 52.7 % (test code = 770-8) IMM GRAN % (test code 1.10 % = 9584682034) LYMPH % (test code = 36.6 % 736-9) MONO % (test code = 6.5 % 5905-5) EOS % (test code = 1.6 % 713-8) BASO % (test code = 1.5 % 706-2) GRAN MAT x10^3(ANC) 5.13 10*3/uL 1.88-7.09 (test code = 5432715270) IMM GRAN x10^3 (test 0.11 10*3/uL 0.00-0.06 H code = 9363295774) LYMPH x10^3 (test code 3.57 10*3/uL 1.32-3.29 H = 731-0) MONO x10^3 (test code 0.63 10*3/uL 0.33-0.92 = 742-7) EOS x10^3 (test code = 0.16 10*3/uL 0.03-0.39 711-2) BASO x10^3 (test code 0.15 10*3/uL 0.01-0.07 H = 704-7) Lab Interpretation Abnormal (test code = 16197-9) [facility]2022-08-26 20:35:54 Test Item Value Reference Range Interpretation Comments POCT GLU (test code = 3594295474) 400 mg/dL 70-110 H Lab Interpretation (test code = Abnormal 81006-0) [facility] Metabolic Panel (Na, K, Cl, CO2, Glucose, BUN, Creatinine, Ca)2022-06-22 03:47:00 Test Item Value Reference Range Interpretation Comments NA (test code = 136 mmol/L 135-145 1344726301) K (test code = 3.8 mmol/L 3.5-5.0 7699637595) CL (test code = 97 mmol/L 98-108 L 7983761350) CO2 TOTAL (test code = 24 mmol/L 23-31 2411350686) AGAP (test code = 2-16 9913690827) BUN (test code = 34 mg/dL 7-23 H 6622946694) GLUCOSE (test code = 270 mg/dL 70-110 H 1605236077) CREATININE (test code = 0.93 mg/dL 0.50-1.04 2924003823) CALCIUM (test code = 10.6 mg/dL 8.6-10.6 7452368304) eGFR (test code = mL/min/1.73m2 4383105436) CALVIN (test code = CALVIN) Association of [...] tests). Lab Interpretation Abnormal (test code = 98646-5) [facility] GLUCOSE (AUTOMATED)2022-06-22 03:46:00 Test Item Value Reference Range Interpretation Comments POCT GLU (test code = 5444402506) 256 mg/dL 70-110 H Lab Interpretation (test code = Abnormal 35835-7) [facility] HospitalGlycosylated Hemoglobin (A1C)2022-06-22 03:08:04 Test Item Value Reference Range Interpretation Comments HGB A1C (test code = 12.0 % 4.0-5.7 H 4548-4) CALVIN (test code = CALVIN) Reference RangesNormal: <5.7%Prediabetes: 5.7 - 6.4%Diabetes: > 6.5% Lab Interpretation (test Abnormal code = 64895-2) [facility] GLUCOSE (AUTOMATED)2022-06-22 02:44:02 Test Item Value Reference Range Interpretation Comments POCT GLU (test code = 7058659572) 265 mg/dL 70-110 H Lab Interpretation (test code = Abnormal 04552-4) [facility] GLUCOSE(AGE >30DAYS)2022-06-22 02:39:00 Test Item Value Reference Range Interpretation Comments POCT Glu (age>30days) (test code = 265 mg/dL 70-110 A 3342) Lab Interpretation (test code = Abnormal 49179-1) [facility] HospitalMagnesium [id number] 02:25:21 Test Item Value Reference Range Interpretation Comments MAGNESIUM (test code = 3166301612) 1.5 mg/dL 1.7-2.4 L Lab Interpretation (test code = Abnormal 05657-0) [facility] HospitalPhosphorus [id number] 02:25:01 Test Item Value Reference Range Interpretation Comments PHOSPHORUS (test code = 9947425331) 5.7 mg/dL 2.5-5.0 H Lab Interpretation (test code = Abnormal 42551-2) [facility] GLUCOSE (AUTOMATED)2022-06-22 01:44:15 Test Item Value Reference Range Interpretation Comments POCT GLU (test code = 6077448324) 298 mg/dL 70-110 H Lab Interpretation (test code = Abnormal 73180-3) [facility] WITH [id number] 01:28:41 Test Item Value Reference Range Interpretation Comments WBC (test code = See_Comment [Automated 6690-2) message] The sy stem which generated this result transmitted reference range : 4.30 - 11.10 10*3/?L. The reference range was not used to interpret this result as normal/abnormal . RBC (test code = See_Comment H [Automated 789-8) message] The sy stem which [...] (test code = 37.1 fL 39.0-49.9 L 07199-3) RDW-CV (test code = 12.5 % 12.0-15.5 788-0) PLT (test code = See_Comment [Automated 777-3) message] The sy stem which generated this result transmitted reference range : 166 - 358 10*3/ ?L. The reference r doretha was not used to interpret this result as normal/abnormal . MPV (test code = 9.9 fL 9.5-12.9 66317-2) NRBC/100 WBC (test See_Comment [Automat ed code = 4058396929) message] The system which generated this result transmitted reference range : 0.0 - 10.0 /100 WBCs. The refer ence range was not u sed to interpret th is result as normal/abnormal . NRBC x10^3 (test code See_Comment [Auto mated = 1778396753) message] The s ystem which generated this result transmitted reference range : 10*3/?L. The reference range was not used to interpret this result as normal/abnormal . GRAN MAT (NEUT) % 40.5 % (test code = 770-8) IMM GRAN % (test code 0.90 % = 5691076084) LYMPH % (test code = 48.0 % 736-9) MONO % (test code = 8.5 % 5905-5) EOS % (test code = 1.1 % 713-8) BASO % (test code = 1.0 % 706-2) GRAN MAT x10^3(ANC) 4.35 10*3/uL 1.88-7.09 (test code = 1021480008) IMM GRAN x10^3 (test 0.10 10*3/uL 0.00-0.06 H code = 7786630444) LYMPH x10^3 (test code 5.17 10*3/uL 1.32-3.29 H = 731-0) MONO x10^3 (test code 0.92 10*3/uL 0.33-0.92 = 742-7) EOS x10^3 (test code = 0.12 10*3/uL 0.03-0.39 711-2) BASO x10^3 (test code 0.11 10*3/uL 0.01-0.07 H = 704-7) Lab Interpretation Abnormal (test code = 93324-6) [facility] [place], [place] [id number] 00:34:27 Test Item Value Reference Interpretation Comments Range TROPONIN I (test 0.000 ng/mL See_Comment [Automated code = 1898663179) message] The system which generated this result [...] biotin. Lab Interpretation Normal (test code = 71064-8) [facility]AL [id number] 00:31:09 Test Item Value Reference Range Interpretation Comments NT-proBNP (test code 21 pg/mL See_Comment [Autom ated = 9564198944) message] The system which generated this result transmitted reference range : <=125. The reference range was not used to interpret this result as normal/abnormal . CALVIN (test code = CALVIN) Biotin has been reported to cause a negative bias, interpret results relative to patient's use of biotin. Lab Interpretation Normal (test code = 89180-4) [facility] METABOLIC PANEL (NA, K, CL, CO2, GLUCOSE, BUN, CREATININE, CA)2022-06-22 00:22:03 Test Item Value Reference Range Interpretation Comments NA (test code = 133 mmol/L 135-145 L 4395970935) K (test code = 4.7 mmol/L 3.5-5.0 2578078598) CL (test code = 91 mmol/L 98-108 L 7430791776) CO2 TOTAL (test code = 24 mmol/L 23-31 8071457130) AGAP (test code = 2-16 H 3224058350) BUN (test code = 37 mg/dL 7-23 H 0657840616) GLUCOSE (test code = 385 mg/dL 70-110 H 8798940396) CREATININE (test code = 1.09 mg/dL 0.50-1.04 H 8207195692) CALCIUM (test code = 11.5 mg/dL 8.6-10.6 H 2183057994) eGFR (test code = mL/min/1.73m2 6865285658) CALVIN (test code = CALVIN) Association of [...] tests). Lab Interpretation Abnormal (test code = 78050-0) [facility] [id number] 00:00:00 Test Item Value Reference Range Interpretation Comments GLUCOSE (test code = 2217) 259 MG/DL BUN (test code = 2208) 17 MG/DL CREATININE (test code = 2214) 0.72 MG/DL eGFR (2020 CKD-EPI) (test 106 ML/MIN/1.73 code = 05879) CALC BUN/CREAT (test code = 24 RATIO [...] code = 2219) 38 U/L COMPREHENSIVE METABOLIC [id number] 00:00:00 Test Item Value Reference Range Interpretation Comments GLUCOSE (test code = 2217) 259 MG/DL BUN (test code = 2208) 17 MG/DL CREATININE (test code = 2214) 0.72 MG/DL eGFR (2020 CKD-EPI) (test 106 ML/MIN/1.73 code = 45867) CALC BUN/CREAT (test code = 24 RATIO [...] (test code = 2219) 38 U/L LIPID [id number] 00:00:00 Test Item Value Reference Range Interpretation Comments CHOLESTEROL (test code = 2210) 196 MG/DL TRIGLYCERIDES (test code = 2232) 500 MG/DL HDL CHOLESTEROL (test code = 31 MG/DL 2220) CALC LDL CHOL (test code = 2237) (NOTE) MG/DL RISK RATIO LDL/HDL (test code = (NOTE) RATIO 2238) LIPID [id number] 00:00:00 Test Item Value Reference Range Interpretation Comments CHOLESTEROL (test code = 2210) 196 MG/DL TRIGLYCERIDES (test code = 2232) 500 MG/DL HDL CHOLESTEROL (test code = 31 MG/DL 2220) CALC LDL CHOL (test code = 2237) (NOTE) MG/DL RISK RATIO LDL/HDL (test code = (NOTE) RATIO 2238) HEMOGLOBIN [id number] 00:00:00 Test Item Value Reference Range Interpretation Comments HEMOGLOBIN A1c (test code = 20586) 11.0 % HEMOGLOBIN [id number] 00:00:00 Test Item Value Reference Range Interpretation Comments HEMOGLOBIN A1c (test code = 67028) 11.0 % HEMOGLOBIN [id number] 00:00:00 Test Item Value Reference Range Interpretation Comments HEMOGLOBIN A1c (test code = 57036) 11.0 % COMPREHENSIVE METABOLIC [id number] 00:00:00 Test Item Value Reference Range Interpretation Comments GLUCOSE (test code = 2217) 259 MG/DL BUN (test code = 2208) 17 MG/DL CREATININE (test code = 2214) 0.72 MG/DL eGFR (2020 CKD-EPI) (test 106 ML/MIN/1.73 code = 02858) CALC BUN/CREAT (test code = 24 RATIO [...] code = 2219) 38 U/L COMPREHENSIVE METABOLIC [id number] 00:00:00 Test Item Value Reference Range Interpretation Comments GLUCOSE (test code = 2217) 259 MG/DL BUN (test code = 2208) 17 MG/DL CREATININE (test code = 2214) 0.72 MG/DL eGFR (2020 CKD-EPI) (test 106 ML/MIN/1.73 code = 89205) CALC BUN/CREAT (test code = 24 RATIO [...] (test code = 2219) 38 U/L LIPID [id number] 00:00:00 Test Item Value Reference Range Interpretation Comments CHOLESTEROL (test code = 2210) 196 MG/DL TRIGLYCERIDES (test code = 2232) 500 MG/DL HDL CHOLESTEROL (test code = 31 MG/DL 2220) CALC LDL CHOL (test code = 2237) (NOTE) MG/DL RISK RATIO LDL/HDL (test code = (NOTE) RATIO 2238) LIPID [id number] 00:00:00 Test Item Value Reference Range Interpretation Comments CHOLESTEROL (test code = 2210) 196 MG/DL TRIGLYCERIDES (test code = 2232) 500 MG/DL HDL CHOLESTEROL (test code = 31 MG/DL 2220) CALC LDL CHOL (test code = 2237) (NOTE) MG/DL RISK RATIO LDL/HDL (test code = (NOTE) RATIO 2238) HEMOGLOBIN [id number] 00:00:00 Test Item Value Reference Range Interpretation Comments HEMOGLOBIN A1c (test code = 26878) 11.0 % HEMOGLOBIN [id number] 00:00:00 Test Item Value Reference Range Interpretation Comments HEMOGLOBIN A1c (test code = 47541) 11.0 % HEMOGLOBIN [id number] 00:00:00 Test Item Value Reference Range Interpretation Comments HEMOGLOBIN A1c (test code = 47101) 11.0 % COMPREHENSIVE METABOLIC [id number] 00:00:00 Test Item Value Reference Range Interpretation Comments GLUCOSE (test code = 2217) 259 MG/DL BUN (test code = 2208) 17 MG/DL CREATININE (test code = 2214) 0.72 MG/DL eGFR (2020 CKD-EPI) (test 106 ML/MIN/1.73 code = 82658) CALC BUN/CREAT (test code = 24 RATIO [...] code = 2219) 38 U/L COMPREHENSIVE METABOLIC [id number] 00:00:00 Test Item Value Reference Range Interpretation Comments GLUCOSE (test code = 2217) 259 MG/DL BUN (test code = 2208) 17 MG/DL CREATININE (test code = 2214) 0.72 MG/DL eGFR (2020 CKD-EPI) (test 106 ML/MIN/1.73 code = 94456) CALC BUN/CREAT (test code = 24 RATIO [...] (test code = 2219) 38 U/L LIPID [id number] 00:00:00 Test Item Value Reference Range Interpretation Comments CHOLESTEROL (test code = 2210) 196 MG/DL TRIGLYCERIDES (test code = 2232) 500 MG/DL HDL CHOLESTEROL (test code = 31 MG/DL 2219) CALC LDL CHOL (test code = 2237) (NOTE) MG/DL RISK RATIO LDL/HDL (test code = (NOTE) RATIO 2238) LIPID [id number] 00:00:00 Test Item Value Reference Range Interpretation Comments CHOLESTEROL (test code = 2210) 196 MG/DL TRIGLYCERIDES (test code = 2232) 500 MG/DL HDL CHOLESTEROL (test code = 31 MG/DL 2220) CALC LDL CHOL (test code = 2237) (NOTE) MG/DL RISK RATIO LDL/HDL (test code = (NOTE) RATIO 2238) HEMOGLOBIN [id number] 00:00:00 Test Item Value Reference Range Interpretation Comments HEMOGLOBIN A1c (test code = 06698) 11.0 % HEMOGLOBIN [id number] 00:00:00 Test Item Value Reference Range Interpretation Comments HEMOGLOBIN A1c (test code = 40062) 11.0 % HEMOGLOBIN [id number] 00:00:00 Test Item Value Reference Range Interpretation Comments HEMOGLOBIN A1c (test code = 78828) 11.0 % COMPREHENSIVE METABOLIC [id number] 00:00:00 Test Item Value Reference Range Interpretation Comments GLUCOSE (test code = 2217) 259 MG/DL BUN (test code = 2208) 17 MG/DL CREATININE (test code = 2214) 0.72 MG/DL eGFR (2020 CKD-EPI) (test 106 ML/MIN/1.73 code = 75235) CALC BUN/CREAT (test code = 24 RATIO [...] code = 2219) 38 U/L COMPREHENSIVE METABOLIC [id number] 00:00:00 Test Item Value Reference Range Interpretation Comments GLUCOSE (test code = 2217) 259 MG/DL BUN (test code = 2208) 17 MG/DL CREATININE (test code = 2214) 0.72 MG/DL eGFR (2020 CKD-EPI) (test 106 ML/MIN/1.73 code = 67926) CALC BUN/CREAT (test code = 24 RATIO [...] (test code = 2219) 38 U/L LIPID [id number] 00:00:00 Test Item Value Reference Range Interpretation Comments CHOLESTEROL (test code = 2210) 196 MG/DL TRIGLYCERIDES (test code = 2232) 500 MG/DL HDL CHOLESTEROL (test code = 31 MG/DL 2220) CALC LDL CHOL (test code = 2237) (NOTE) MG/DL RISK RATIO LDL/HDL (test code = (NOTE) RATIO 2238) LIPID [id number] 00:00:00 Test Item Value Reference Range Interpretation Comments CHOLESTEROL (test code = 2210) 196 MG/DL TRIGLYCERIDES (test code = 2232) 500 MG/DL HDL CHOLESTEROL (test code = 31 MG/DL 2220) CALC LDL CHOL (test code = 2237) (NOTE) MG/DL RISK RATIO LDL/HDL (test code = (NOTE) RATIO 2238) HEMOGLOBIN [id number] 00:00:00 Test Item Value Reference Range Interpretation Comments HEMOGLOBIN A1c (test code = 01731) 11.0 % HEMOGLOBIN [id number] 00:00:00 Test Item Value Reference Range Interpretation Comments HEMOGLOBIN A1c (test code = 80517) 11.0 % HEMOGLOBIN [id number] 00:00:00 Test Item Value Reference Range Interpretation Comments HEMOGLOBIN A1c (test code = 45660) 11.0 % VAGINAL PATHOGENS DNA [id number] 15:33:03 Test Item Value Reference Range Interpretation Comments ANDIE SPECIES (test NEGATIVE NEGATIVE code = 40052) G. VAGINALIS (test NEGATIVE NEGATIVE code = 23964) T. VAGINALIS (test NEGATIVE NEGATIVE UNLESS O THERWISE code = 86481) INDICATED, ALL TESTING PERFORMED [facility] PATHOLOGY [facility], [facility]. [address] [place] [address] 4 LABORATORY DIRE CTOR: NOAH TODD M.D. [place] NUMBER [id number] [facility] [place] [id number] VAGINAL PATHOGENS DNA [id number] 00:00:00 Test Item Value Reference Range Interpretation Comments ANDIE SPECIES (test code = 47742) NEGATIVE G. VAGINALIS (test code = 35369) NEGATIVE T. VAGINALIS (test code = 21098) NEGATIVE VAGINAL PATHOGENS DNA [id number] 00:00:00 Test Item Value Reference Range Interpretation Comments ANDIE SPECIES (test code = 07290) NEGATIVE G. VAGINALIS (test code = 58115) NEGATIVE T. VAGINALIS (test code = 41056) NEGATIVE VAGINAL PATHOGENS DNA [id number] 00:00:00 Test Item Value Reference Range Interpretation Comments ANDIE SPECIES (test code = 04801) NEGATIVE G. VAGINALIS (test code = 16811) NEGATIVE T. VAGINALIS (test code = 89277) NEGATIVE VAGINAL PATHOGENS DNA [id number] 00:00:00 Test Item Value Reference Range Interpretation Comments ANDIE SPECIES (test code = 28369) NEGATIVE G. VAGINALIS (test code = 19113) NEGATIVE T. VAGINALIS (test code = 67761) NEGATIVE VAGINAL PATHOGENS DNA [id number] 00:00:00 Test Item Value Reference Range Interpretation Comments ANDIE SPECIES (test code = 85673) NEGATIVE G. VAGINALIS (test code = 36233) NEGATIVE T. VAGINALIS (test code = 79192) NEGATIVE VAGINAL PATHOGENS DNA [id number] 00:00:00 Test Item Value Reference Range Interpretation Comments ANDIE SPECIES (test code = 97819) NEGATIVE G. VAGINALIS (test code = 87282) NEGATIVE T. VAGINALIS (test code = 26360) NEGATIVE VAGINAL PATHOGENS DNA [id number] 00:00:00 Test Item Value Reference Range Interpretation Comments ANDIE SPECIES (test code = 99625) NEGATIVE G. VAGINALIS (test code = 84018) NEGATIVE T. VAGINALIS (test code = 33624) NEGATIVE VAGINAL PATHOGENS DNA [id number] 00:00:00 Test Item Value Reference Range Interpretation Comments ANDIE SPECIES (test code = ) NEGATIVE G. VAGINALIS (test code = 56445) NEGATIVE T. VAGINALIS (test code = ) NEGATIVE VAGINAL PATHOGENS DNA [id number] 00:00:00 Test Item Value Reference Range Interpretation Comments ANDIE SPECIES (test code = ) NEGATIVE G. VAGINALIS (test code = 07032) NEGATIVE T. VAGINALIS (test code = 71238) NEGATIVE VAGINAL PATHOGENS DNA [id number] 00:00:00 Test Item Value Reference Range Interpretation Comments ANDIE SPECIES (test code = ) NEGATIVE G. VAGINALIS (test code = 84638) NEGATIVE T. VAGINALIS (test code = ) NEGATIVE CULTURE, [id number] 14:55:44SPECIMEN NUMBER: [id number] CULTURE, URINE SPECIMEN NUMBER: [id number] SPECIMEN COMMENT: URINE SOURCE:URINE REPORT STATUS: FINAL FINAL REPORT: 04/11/2022 <10,000 CFU/ML UROGENITAL NORMA PRESENT NO COM MON PATHOGENSCULTURE, [id number] 00:00:00 Test Item Value Reference Range Interpretation Comments CULTURE, URINE (test SPECIMEN NUMBER: code = 17697) [id number] CULTURE, [id number] 00:00:00 Test Item Value Reference Range Interpretation Comments CULTURE, URINE (test SPECIMEN NUMBER: code = 09104) [id number] CULTURE, [id number] 00:00:00 Test Item Value Reference Range Interpretation Comments CULTURE, URINE (test SPECIMEN NUMBER: code = 01648) [id number] CULTURE, [id number] 00:00:00 Test Item Value Reference Range Interpretation Comments CULTURE, URINE (test SPECIMEN NUMBER: code = 88806) [id number] CULTURE, [id number] 00:00:00 Test Item Value Reference Range Interpretation Comments CULTURE, URINE (test SPECIMEN NUMBER: code = 43692) [id number] CULTURE, [id number] 00:00:00 Test Item Value Reference Range Interpretation Comments CULTURE, URINE (test SPECIMEN NUMBER: code = 19082) [id number] CULTURE, [id number] 00:00:00 Test Item Value Reference Range Interpretation Comments CULTURE, URINE (test SPECIMEN NUMBER: code = 66303) [id number] CULTURE, [id number] 00:00:00 Test Item Value Reference Range Interpretation Comments CULTURE, URINE (test SPECIMEN NUMBER: code = 57793) [id number] CULTURE, [id number] 00:00:00 Test Item Value Reference Range Interpretation Comments CULTURE, URINE (test SPECIMEN NUMBER: code = 62431) [id number] CULTURE, [id number] 00:00:00 Test Item Value Reference Range Interpretation Comments CULTURE, URINE (test SPECIMEN NUMBER: code = 06721) [id number] CULTURE, [id number] 00:00:00 Test Item Value Reference Range Interpretation Comments CULTURE, URINE (test SPECIMEN NUMBER: code = 86278) [id number] CULTURE, [id number] 00:00:00 Test Item Value Reference Range Interpretation Comments CULTURE, URINE (test SPECIMEN NUMBER: code = 96399) [id number] CULTURE, [id number] 00:00:00 Test Item Value Reference Range Interpretation Comments CULTURE, URINE (test SPECIMEN NUMBER: code = 17710) [id number] CULTURE, [id number] 00:00:00 Test Item Value Reference Range Interpretation Comments CULTURE, URINE (test SPECIMEN NUMBER: code = 85326) [id number] CBC W/AUTO DIFF WITH [id number] 02:13:01 Test Item Value Reference Range Interpretation [...] message] code = 1065) WBC'S The system [employer] generated this result transmitted ref erence range: [...] 0.00-0.11 UNLESS O THERWISE (test code = 50640) INDICATE D, ALL TESTING PERFORM [facility]. [address] [place] [id number] [place] [address] DIRECTOR: NOAH DICKENS M.D. CLIA NUMBER [id number] CAP ACCREDITATION N O. [id number] CBC W/AUTO [id number] 00:00:00 Test Item Value Reference Range Interpretation [...] NUCLEATED RBCS (test code = 0.00 K/UL 77453) CBC W/AUTO [id number] 00:00:00 Test Item Value Reference Range Interpretation [...] NUCLEATED RBCS (test code = 0.00 K/UL 57660) CBC W/AUTO [id number] 00:00:00 Test Item Value Reference Range Interpretation [...] NUCLEATED RBCS (test code = 0.00 K/UL 12330) CBC W/AUTO [id number] 00:00:00 Test Item Value Reference Range Interpretation [...] NUCLEATED RBCS (test code = 0.00 K/UL 81418) CBC W/AUTO [id number] 00:00:00 Test Item Value Reference Range Interpretation [...] NUCLEATED RBCS (test code = 0.00 K/UL 29171) CBC W/AUTO [id number] 00:00:00 Test Item Value Reference Range Interpretation [...] NUCLEATED RBCS (test code = 0.00 K/UL 33715) CBC W/AUTO [id number] 00:00:00 Test Item Value Reference Range Interpretation [...] NUCLEATED RBCS (test code = 0.00 K/UL 08409) CBC W/AUTO [id number] 00:00:00 Test Item Value Reference Range Interpretation [...] NUCLEATED RBCS (test code = 0.00 K/UL 42014) CBC W/AUTO [id number] 00:00:00 Test Item Value Reference Range Interpretation [...] NUCLEATED RBCS (test code = 0.00 K/UL 31133) CBC W/AUTO [id number] 00:00:00 Test Item Value Reference Range Interpretation [...] NUCLEATED RBCS (test code = 0.00 K/UL 78996) CBC W/AUTO [id number] 00:00:00 Test Item Value Reference Range Interpretation [...] NUCLEATED RBCS (test code = 0.00 K/UL 45236) CBC W/AUTO [id number] 00:00:00 Test Item Value Reference Range Interpretation [...] NUCLEATED RBCS (test code = 0.00 K/UL 73101) CBC W/AUTO [id number] 00:00:00 Test Item Value Reference Range Interpretation [...] NUCLEATED RBCS (test code = 0.00 K/UL 83755) CBC W/AUTO [id number] 00:00:00 Test Item Value Reference Range Interpretation [...] NUCLEATED RBCS (test code = 0.00 K/UL 13002) CBC W/AUTO [id number] 00:00:00 Test Item Value Reference Range Interpretation [...] NUCLEATED RBCS (test code = 0.00 K/UL 34773) CBC W/AUTO [id number] 00:00:00 Test Item Value Reference Range Interpretation [...] NUCLEATED RBCS (test code = 0.00 K/UL 70273) CBC W/AUTO [id number] 00:00:00 Test Item Value Reference Range Interpretation [...] NUCLEATED RBCS (test code = 0.00 K/UL 01555) CBC W/AUTO [id number] 00:00:00 Test Item Value Reference Range Interpretation [...] NUCLEATED RBCS (test code = 0.00 K/UL 73592) CBC W/AUTO [id number] 00:00:00 Test Item Value Reference Range Interpretation [...] NUCLEATED RBCS (test code = 0.00 K/UL 04407) CBC W/AUTO [id number] 00:00:00 Test Item Value Reference Range Interpretation [...] NUCLEATED RBCS (test code = 0.00 K/UL 41215) CBC W/AUTO [id number] 00:00:00 Test Item Value Reference Range Interpretation [...] NUCLEATED RBCS (test code = 0.00 K/UL 23594) COMPREHENSIVE METABOLIC [id number] 04:26:32 Test Item Value Reference Range Interpretation Comments GLUCOSE (test code = 122 MG/DL 70-99 H 2216) BUN (test code = 11 MG/DL 6-20 2207) CREATININE (test 0.65 MG/DL 0.60-1.30 code = 2214) eGFR (2020 CKD-EPI) 111 >60 (test code = 53358) ML/MIN/1.73 CALC BUN/CREAT (test 17 RATIO 6-28 code = 223) SODIUM (test code = 145 MEQ/L 933-372 2913) POTASSIUM (test code 4.2 MEQ/L 3.5-5.4 = 2227) CHLORIDE (test code 107 MEQ/L 95-107 = 2214) CARBON DIOXIDE (test 26 MEQ/L 19-31 code = 220) CALCIUM (test code = 9.8 MG/DL 8.5-10.5 2208) PROTEIN, TOTAL (test 7.5 G/DL 6.1-8.3 code = 2228) ALBUMIN (test code = 4.5 G/DL 3.5-5.2 2200) CALC GLOBULIN (test 3.0 G/DL 1.9-3.7 code = 224) CALC A/G RATIO (test 1.5 RATIO 1.0-2.6 [...] code = 38 U/L 5-40 2218) LIPID [id number] 04:26:32 Test Item Value Reference Range Interpretation [...] MOREINFORMATION , SEE CLIENT ANNOUNCE MENT AT [email or web address] RISK RATIO LDL/HDL 2.84 RATIO <3.22 (test code = 2238) HEMOGLOBIN [id number] 04:03:31 Test Item Value Reference Range Interpretation Comments HEMOGLOBIN A1c (test 10.9 % 4.2-5.6 H [employer] AN DIABETES code = 22941) ASSOCIATION IDELIN[employer] FOR HGB A1C: PREDIABETES/INC REASED [...] INDICATED, ALL TESTING PER FORMED ATCLINICAL PATH [employer], [facility]. [address] [place] [address] LABORATORY DIRE CTOR: Carlos Enrique BERNARD. IA NUMBER [id number] CAP ACCREDITATION N O. [id number] COMPREHENSIVE METABOLIC [id number] 00:00:00 Test Item Value Reference Range Interpretation Comments GLUCOSE (test code = 2217) 122 MG/DL BUN (test code = 2208) 11 MG/DL CREATININE (test code = 2214) 0.65 MG/DL eGFR (2020 CKD-EPI) (test 111 ML/MIN/1.73 code = 75358) CALC BUN/CREAT (test code = 17 RATIO [...] code = 2219) 38 U/L COMPREHENSIVE METABOLIC [id number] 00:00:00 Test Item Value Reference Range Interpretation Comments GLUCOSE (test code = 2217) 122 MG/DL BUN (test code = 2208) 11 MG/DL CREATININE (test code = 2214) 0.65 MG/DL eGFR (2020 CKD-EPI) (test 111 ML/MIN/1.73 code = 30582) CALC BUN/CREAT (test code = 17 RATIO [...] (test code = 2219) 38 U/L LIPID [id number] 00:00:00 Test Item Value Reference Range Interpretation Comments CHOLESTEROL (test code = 2210) 169 MG/DL TRIGLYCERIDES (test code = 2232) 346 MG/DL HDL CHOLESTEROL (test code = 2220) 32 MG/DL CALC LDL CHOL (test code = 2237) 91 MG/DL RISK RATIO LDL/HDL (test code = 2.84 RATIO 2238) LIPID [id number] 00:00:00 Test Item Value Reference Range Interpretation Comments CHOLESTEROL (test code = 2210) 169 MG/DL TRIGLYCERIDES (test code = 2232) 346 MG/DL HDL CHOLESTEROL (test code = 2220) 32 MG/DL CALC LDL CHOL (test code = 2237) 91 MG/DL RISK RATIO LDL/HDL (test code = 2.84 RATIO 2238) HEMOGLOBIN [id number] 00:00:00 Test Item Value Reference Range Interpretation Comments HEMOGLOBIN A1c (test code = 57360) 10.9 % HEMOGLOBIN [id number] 00:00:00 Test Item Value Reference Range Interpretation Comments HEMOGLOBIN A1c (test code = 20398) 10.9 % HEMOGLOBIN [id number] 00:00:00 Test Item Value Reference Range Interpretation Comments HEMOGLOBIN A1c (test code = 02462) 10.9 % COMPREHENSIVE METABOLIC [id number] 00:00:00 Test Item Value Reference Range Interpretation Comments GLUCOSE (test code = 2217) 122 MG/DL BUN (test code = 2208) 11 MG/DL CREATININE (test code = 2214) 0.65 MG/DL eGFR (2020 CKD-EPI) (test 111 ML/MIN/1.73 code = 00461) CALC BUN/CREAT (test code = 17 RATIO [...] code = 2219) 38 U/L COMPREHENSIVE METABOLIC [id number] 00:00:00 Test Item Value Reference Range Interpretation Comments GLUCOSE (test code = 2217) 122 MG/DL BUN (test code = 2208) 11 MG/DL CREATININE (test code = 2214) 0.65 MG/DL eGFR (2020 CKD-EPI) (test 111 ML/MIN/1.73 code = 81370) CALC BUN/CREAT (test code = 17 RATIO [...] (test code = 2219) 38 U/L LIPID [id number] 00:00:00 Test Item Value Reference Range Interpretation Comments CHOLESTEROL (test code = 2210) 169 MG/DL TRIGLYCERIDES (test code = 2232) 346 MG/DL HDL CHOLESTEROL (test code = 2220) 32 MG/DL CALC LDL CHOL (test code = 2237) 91 MG/DL RISK RATIO LDL/HDL (test code = 2.84 RATIO 2238) LIPID [id number] 00:00:00 Test Item Value Reference Range Interpretation Comments CHOLESTEROL (test code = 2210) 169 MG/DL TRIGLYCERIDES (test code = 2232) 346 MG/DL HDL CHOLESTEROL (test code = 2220) 32 MG/DL CALC LDL CHOL (test code = 2237) 91 MG/DL RISK RATIO LDL/HDL (test code = 2.84 RATIO 2238) HEMOGLOBIN [id number] 00:00:00 Test Item Value Reference Range Interpretation Comments HEMOGLOBIN A1c (test code = 74396) 10.9 % HEMOGLOBIN [id number] 00:00:00 Test Item Value Reference Range Interpretation Comments HEMOGLOBIN A1c (test code = 18261) 10.9 % HEMOGLOBIN [id number] 00:00:00 Test Item Value Reference Range Interpretation Comments HEMOGLOBIN A1c (test code = 96831) 10.9 % COMPREHENSIVE METABOLIC [id number] 00:00:00 Test Item Value Reference Range Interpretation Comments GLUCOSE (test code = 2217) 122 MG/DL BUN (test code = 2208) 11 MG/DL CREATININE (test code = 2214) 0.65 MG/DL eGFR (2020 CKD-EPI) (test 111 ML/MIN/1.73 code = 14511) CALC BUN/CREAT (test code = 17 RATIO [...] code = 2219) 38 U/L COMPREHENSIVE METABOLIC [id number] 00:00:00 Test Item Value Reference Range Interpretation Comments GLUCOSE (test code = 2217) 122 MG/DL BUN (test code = 2208) 11 MG/DL CREATININE (test code = 2214) 0.65 MG/DL eGFR (2020 CKD-EPI) (test 111 ML/MIN/1.73 code = 35956) CALC BUN/CREAT (test code = 17 RATIO [...] (test code = 2219) 38 U/L LIPID [id number] 00:00:00 Test Item Value Reference Range Interpretation Comments CHOLESTEROL (test code = 2210) 169 MG/DL TRIGLYCERIDES (test code = 2232) 346 MG/DL HDL CHOLESTEROL (test code = 2220) 32 MG/DL CALC LDL CHOL (test code = 2237) 91 MG/DL RISK RATIO LDL/HDL (test code = 2.84 RATIO 2238) LIPID [id number] 00:00:00 Test Item Value Reference Range Interpretation Comments CHOLESTEROL (test code = 2210) 169 MG/DL TRIGLYCERIDES (test code = 2232) 346 MG/DL HDL CHOLESTEROL (test code = 2220) 32 MG/DL CALC LDL CHOL (test code = 2237) 91 MG/DL RISK RATIO LDL/HDL (test code = 2.84 RATIO 2238) HEMOGLOBIN [id number] 00:00:00 Test Item Value Reference Range Interpretation Comments HEMOGLOBIN A1c (test code = 60614) 10.9 % HEMOGLOBIN [id number] 00:00:00 Test Item Value Reference Range Interpretation Comments HEMOGLOBIN A1c (test code = 14106) 10.9 % HEMOGLOBIN [id number] 00:00:00 Test Item Value Reference Range Interpretation Comments HEMOGLOBIN A1c (test code = 01469) 10.9 % COMPREHENSIVE METABOLIC [id number] 00:00:00 Test Item Value Reference Range Interpretation Comments GLUCOSE (test code = 2217) 122 MG/DL BUN (test code = 2208) 11 MG/DL CREATININE (test code = 2214) 0.65 MG/DL eGFR (2020 CKD-EPI) (test 111 ML/MIN/1.73 code = 47220) CALC BUN/CREAT (test code = 17 RATIO [...] code = 2219) 38 U/L COMPREHENSIVE METABOLIC [id number] 00:00:00 Test Item Value Reference Range Interpretation Comments GLUCOSE (test code = 2217) 122 MG/DL BUN (test code = 2208) 11 MG/DL CREATININE (test code = 2214) 0.65 MG/DL eGFR (2020 CKD-EPI) (test 111 ML/MIN/1.73 code = 73945) CALC BUN/CREAT (test code = 17 RATIO [...] (test code = 2219) 38 U/L LIPID [id number] 00:00:00 Test Item Value Reference Range Interpretation Comments CHOLESTEROL (test code = 2210) 169 MG/DL TRIGLYCERIDES (test code = 2232) 346 MG/DL HDL CHOLESTEROL (test code = 2220) 32 MG/DL CALC LDL CHOL (test code = 2237) 91 MG/DL RISK RATIO LDL/HDL (test code = 2.84 RATIO 2238) LIPID [id number] 00:00:00 Test Item Value Reference Range Interpretation Comments CHOLESTEROL (test code = 2210) 169 MG/DL TRIGLYCERIDES (test code = 2232) 346 MG/DL HDL CHOLESTEROL (test code = 2220) 32 MG/DL CALC LDL CHOL (test code = 2237) 91 MG/DL RISK RATIO LDL/HDL (test code = 2.84 RATIO 2238) HEMOGLOBIN [id number] 00:00:00 Test Item Value Reference Range Interpretation Comments HEMOGLOBIN A1c (test code = 17962) 10.9 % HEMOGLOBIN [id number] 00:00:00 Test Item Value Reference Range Interpretation Comments HEMOGLOBIN A1c (test code = 57933) 10.9 % HEMOGLOBIN [id number] 00:00:00 Test Item Value Reference Range Interpretation Comments HEMOGLOBIN A1c (test code = 61467) 10.9 % COMPREHENSIVE METABOLIC [id number] 00:00:00 Test Item Value Reference Range Interpretation Comments GLUCOSE (test code = 2217) 122 MG/DL BUN (test code = 2208) 11 MG/DL CREATININE (test code = 2214) 0.65 MG/DL eGFR (2020 CKD-EPI) (test 111 ML/MIN/1.73 code = 22252) CALC BUN/CREAT (test code = 17 RATIO [...] code = 2219) 38 U/L COMPREHENSIVE METABOLIC [id number] 00:00:00 Test Item Value Reference Range Interpretation Comments GLUCOSE (test code = 2217) 122 MG/DL BUN (test code = 2208) 11 MG/DL CREATININE (test code = 2214) 0.65 MG/DL eGFR (2020 CKD-EPI) (test 111 ML/MIN/1.73 code = 21584) CALC BUN/CREAT (test code = 17 RATIO [...] (test code = 2219) 38 U/L LIPID [id number] 00:00:00 Test Item Value Reference Range Interpretation Comments CHOLESTEROL (test code = 2210) 169 MG/DL TRIGLYCERIDES (test code = 2232) 346 MG/DL HDL CHOLESTEROL (test code = 2220) 32 MG/DL CALC LDL CHOL (test code = 2237) 91 MG/DL RISK RATIO LDL/HDL (test code = 2.84 RATIO 2238) LIPID [id number] 00:00:00 Test Item Value Reference Range Interpretation Comments CHOLESTEROL (test code = 2210) 169 MG/DL TRIGLYCERIDES (test code = 2232) 346 MG/DL HDL CHOLESTEROL (test code = 2220) 32 MG/DL CALC LDL CHOL (test code = 2237) 91 MG/DL RISK RATIO LDL/HDL (test code = 2.84 RATIO 2238) HEMOGLOBIN [id number] 00:00:00 Test Item Value Reference Range Interpretation Comments HEMOGLOBIN A1c (test code = 57902) 10.9 % HEMOGLOBIN [id number] 00:00:00 Test Item Value Reference Range Interpretation Comments HEMOGLOBIN A1c (test code = 52396) 10.9 % HEMOGLOBIN [id number] 00:00:00 Test Item Value Reference Range Interpretation Comments HEMOGLOBIN A1c (test code = 47552) 10.9 % COMPREHENSIVE METABOLIC [id number] 00:00:00 Test Item Value Reference Range Interpretation Comments GLUCOSE (test code = 2217) 122 MG/DL BUN (test code = 2208) 11 MG/DL CREATININE (test code = 2214) 0.65 MG/DL eGFR (2020 CKD-EPI) (test 111 ML/MIN/1.73 code = 23722) CALC BUN/CREAT (test code = 17 RATIO [...] code = 2219) 38 U/L COMPREHENSIVE METABOLIC [id number] 00:00:00 Test Item Value Reference Range Interpretation Comments GLUCOSE (test code = 2217) 122 MG/DL BUN (test code = 2208) 11 MG/DL CREATININE (test code = 2214) 0.65 MG/DL eGFR (2020 CKD-EPI) (test 111 ML/MIN/1.73 code = 60064) CALC BUN/CREAT (test code = 17 RATIO [...] (test code = 2219) 38 U/L LIPID [id number] 00:00:00 Test Item Value Reference Range Interpretation Comments CHOLESTEROL (test code = 2210) 169 MG/DL TRIGLYCERIDES (test code = 2232) 346 MG/DL HDL CHOLESTEROL (test code = 2220) 32 MG/DL CALC LDL CHOL (test code = 2237) 91 MG/DL RISK RATIO LDL/HDL (test code = 2.84 RATIO 2238) LIPID [id number] 00:00:00 Test Item Value Reference Range Interpretation Comments CHOLESTEROL (test code = 2210) 169 MG/DL TRIGLYCERIDES (test code = 2232) 346 MG/DL HDL CHOLESTEROL (test code = 2220) 32 MG/DL CALC LDL CHOL (test code = 2237) 91 MG/DL RISK RATIO LDL/HDL (test code = 2.84 RATIO 2238) HEMOGLOBIN [id number] 00:00:00 Test Item Value Reference Range Interpretation Comments HEMOGLOBIN A1c (test code = 21260) 10.9 % HEMOGLOBIN [id number] 00:00:00 Test Item Value Reference Range Interpretation Comments HEMOGLOBIN A1c (test code = 87623) 10.9 % HEMOGLOBIN [id number] 00:00:00 Test Item Value Reference Range Interpretation Comments HEMOGLOBIN A1c (test code = 65481) 10.9 % COMPREHENSIVE METABOLIC [id number] 00:00:00 Test Item Value Reference Range Interpretation Comments GLUCOSE (test code = 2217) 122 MG/DL BUN (test code = 2208) 11 MG/DL CREATININE (test code = 2214) 0.65 MG/DL eGFR (2020 CKD-EPI) (test 111 ML/MIN/1.73 code = 41998) CALC BUN/CREAT (test code = 17 RATIO [...] code = 2219) 38 U/L COMPREHENSIVE METABOLIC [id number] 00:00:00 Test Item Value Reference Range Interpretation Comments GLUCOSE (test code = 2217) 122 MG/DL BUN (test code = 2208) 11 MG/DL CREATININE (test code = 2214) 0.65 MG/DL eGFR (2020 CKD-EPI) (test 111 ML/MIN/1.73 code = 56506) CALC BUN/CREAT (test code = 17 RATIO [...] (test code = 2219) 38 U/L LIPID [id number] 00:00:00 Test Item Value Reference Range Interpretation Comments CHOLESTEROL (test code = 2210) 169 MG/DL TRIGLYCERIDES (test code = 2232) 346 MG/DL HDL CHOLESTEROL (test code = 2220) 32 MG/DL CALC LDL CHOL (test code = 2237) 91 MG/DL RISK RATIO LDL/HDL (test code = 2.84 RATIO 2238) LIPID [id number] 00:00:00 Test Item Value Reference Range Interpretation Comments CHOLESTEROL (test code = 2210) 169 MG/DL TRIGLYCERIDES (test code = 2232) 346 MG/DL HDL CHOLESTEROL (test code = 2220) 32 MG/DL CALC LDL CHOL (test code = 2237) 91 MG/DL RISK RATIO LDL/HDL (test code = 2.84 RATIO 2238) HEMOGLOBIN [id number] 00:00:00 Test Item Value Reference Range Interpretation Comments HEMOGLOBIN A1c (test code = 11494) 10.9 % HEMOGLOBIN [id number] 00:00:00 Test Item Value Reference Range Interpretation Comments HEMOGLOBIN A1c (test code = 15447) 10.9 % HEMOGLOBIN [id number] 00:00:00 Test Item Value Reference Range Interpretation Comments HEMOGLOBIN A1c (test code = 71520) 10.9 % COMPREHENSIVE METABOLIC [id number] 00:00:00 Test Item Value Reference Range Interpretation Comments GLUCOSE (test code = 2217) 122 MG/DL BUN (test code = 2208) 11 MG/DL CREATININE (test code = 2214) 0.65 MG/DL eGFR (2020 CKD-EPI) (test 111 ML/MIN/1.73 code = 41453) CALC BUN/CREAT (test code = 17 RATIO [...] code = 2219) 38 U/L COMPREHENSIVE METABOLIC [id number] 00:00:00 Test Item Value Reference Range Interpretation Comments GLUCOSE (test code = 2217) 122 MG/DL BUN (test code = 2208) 11 MG/DL CREATININE (test code = 2214) 0.65 MG/DL eGFR (2020 CKD-EPI) (test 111 ML/MIN/1.73 code = 31959) CALC BUN/CREAT (test code = 17 RATIO [...] (test code = 2219) 38 U/L LIPID [id number] 00:00:00 Test Item Value Reference Range Interpretation Comments CHOLESTEROL (test code = 2210) 169 MG/DL TRIGLYCERIDES (test code = 2232) 346 MG/DL HDL CHOLESTEROL (test code = 2220) 32 MG/DL CALC LDL CHOL (test code = 2237) 91 MG/DL RISK RATIO LDL/HDL (test code = 2.84 RATIO 2238) LIPID [id number] 00:00:00 Test Item Value Reference Range Interpretation Comments CHOLESTEROL (test code = 2210) 169 MG/DL TRIGLYCERIDES (test code = 2232) 346 MG/DL HDL CHOLESTEROL (test code = 2220) 32 MG/DL CALC LDL CHOL (test code = 2237) 91 MG/DL RISK RATIO LDL/HDL (test code = 2.84 RATIO 2238) HEMOGLOBIN [id number] 00:00:00 Test Item Value Reference Range Interpretation Comments HEMOGLOBIN A1c (test code = 34051) 10.9 % HEMOGLOBIN [id number] 00:00:00 Test Item Value Reference Range Interpretation Comments HEMOGLOBIN A1c (test code = 40075) 10.9 % HEMOGLOBIN [id number] 00:00:00 Test Item Value Reference Range Interpretation Comments HEMOGLOBIN A1c (test code = 86125) 10.9 % COMPREHENSIVE METABOLIC [id number] 00:00:00 Test Item Value Reference Range Interpretation Comments GLUCOSE (test code = 2217) 122 MG/DL BUN (test code = 2208) 11 MG/DL CREATININE (test code = 2214) 0.65 MG/DL eGFR (2020 CKD-EPI) (test 111 ML/MIN/1.73 code = 35454) CALC BUN/CREAT (test code = 17 RATIO [...] code = 2219) 38 U/L COMPREHENSIVE METABOLIC [id number] 00:00:00 Test Item Value Reference Range Interpretation Comments GLUCOSE (test code = 2217) 122 MG/DL BUN (test code = 2208) 11 MG/DL CREATININE (test code = 2214) 0.65 MG/DL eGFR (2020 CKD-EPI) (test 111 ML/MIN/1.73 code = 07527) CALC BUN/CREAT (test code = 17 RATIO [...] (test code = 2219) 38 U/L LIPID [id number] 00:00:00 Test Item Value Reference Range Interpretation Comments CHOLESTEROL (test code = 2210) 169 MG/DL TRIGLYCERIDES (test code = 2232) 346 MG/DL HDL CHOLESTEROL (test code = 2220) 32 MG/DL CALC LDL CHOL (test code = 2237) 91 MG/DL RISK RATIO LDL/HDL (test code = 2.84 RATIO 2238) LIPID [id number] 00:00:00 Test Item Value Reference Range Interpretation Comments CHOLESTEROL (test code = 2210) 169 MG/DL TRIGLYCERIDES (test code = 2232) 346 MG/DL HDL CHOLESTEROL (test code = 2220) 32 MG/DL CALC LDL CHOL (test code = 2237) 91 MG/DL RISK RATIO LDL/HDL (test code = 2.84 RATIO 2238) HEMOGLOBIN [id number] 00:00:00 Test Item Value Reference Range Interpretation Comments HEMOGLOBIN A1c (test code = 07835) 10.9 % HEMOGLOBIN [id number] 00:00:00 Test Item Value Reference Range Interpretation Comments HEMOGLOBIN A1c (test code = 07920) 10.9 % HEMOGLOBIN [id number] 00:00:00 Test Item Value Reference Range Interpretation Comments HEMOGLOBIN A1c (test code = 30983) 10.9 % VITAMIN D, 25 [id number] 04:13:44 Test Item Value Reference Range Interpretation [...] ATED, ALL TESTING PERFORM ED ATCLINICAL PATH [facility], [place] [address] LABORATORY DIRE CTOR: Carlos Enrique BERNARD. CLIA NUMBER [id number] CAP ACCREDITATION N O. [id number] HIV 1/2 4TH GEN, RFLX [id number] 03:26:41 Test Item Value Reference Range Interpretation Comments HIV 1/2 4TH GEN, RFLX CONF (test NON-REACTIVE NON-REACTIVE code = 3514) ALBUMIN, URINE, [id number] 02:46:02 Test Item Value Reference Range Interpretation Comments ALBUMIN, URINE, RANDOM (test code 10.2 MG/DL NOT ESTAB = 25767) MICROALBUMIN, [id number] 00:00:00 Test Item Value Reference Range Interpretation Comments ALBUMIN, URINE, RANDOM (test code 10.2 MG/DL = 65962) MICROALBUMIN, [id number] 00:00:00 Test Item Value Reference Range Interpretation Comments ALBUMIN, URINE, RANDOM (test code 10.2 MG/DL = 23417) HIV AB/AG COMBO RFLX [id number] 00:00:00 Test Item Value Reference Range Interpretation Comments HIV 1/2 4TH GEN, RFLX CONF (test NON-REACTIVE code = 3514) HIV AB/AG COMBO RFLX [id number] 00:00:00 Test Item Value Reference Range Interpretation Comments HIV 1/2 4TH GEN, RFLX CONF (test NON-REACTIVE code = 3514) VITAMIN D, 25 [id number] 00:00:00 Test Item Value Reference Range Interpretation Comments VITAMIN D, 25 OH (test code = 4958) 18 NG/ML VITAMIN D, 25 [id number] 00:00:00 Test Item Value Reference Range Interpretation Comments VITAMIN D, 25 OH (test code = 4958) 18 NG/ML MICROALBUMIN, [id number] 00:00:00 Test Item Value Reference Range Interpretation Comments ALBUMIN, URINE, RANDOM (test code 10.2 MG/DL = 47134) MICROALBUMIN, [id number] 00:00:00 Test Item Value Reference Range Interpretation Comments ALBUMIN, URINE, RANDOM (test code 10.2 MG/DL = 05324) HIV AB/AG COMBO RFLX [id number] 00:00:00 Test Item Value Reference Range Interpretation Comments HIV 1/2 4TH GEN, RFLX CONF (test NON-REACTIVE code = 3514) HIV AB/AG COMBO RFLX [id number] 00:00:00 Test Item Value Reference Range Interpretation Comments HIV 1/2 4TH GEN, RFLX CONF (test NON-REACTIVE code = 3514) VITAMIN D, 25 [id number] 00:00:00 Test Item Value Reference Range Interpretation Comments VITAMIN D, 25 OH (test code = 4958) 18 NG/ML VITAMIN D, 25 [id number] 00:00:00 Test Item Value Reference Range Interpretation Comments VITAMIN D, 25 OH (test code = 4958) 18 NG/ML MICROALBUMIN, [id number] 00:00:00 Test Item Value Reference Range Interpretation Comments ALBUMIN, URINE, RANDOM (test code 10.2 MG/DL = 08876) MICROALBUMIN, [id number] 00:00:00 Test Item Value Reference Range Interpretation Comments ALBUMIN, URINE, RANDOM (test code 10.2 MG/DL = 29060) HIV AB/AG COMBO RFLX [id number] 00:00:00 Test Item Value Reference Range Interpretation Comments HIV 1/2 4TH GEN, RFLX CONF (test NON-REACTIVE code = 3514) HIV AB/AG COMBO RFLX [id number] 00:00:00 Test Item Value Reference Range Interpretation Comments HIV 1/2 4TH GEN, RFLX CONF (test NON-REACTIVE code = 3514) VITAMIN D, 25 [id number] 00:00:00 Test Item Value Reference Range Interpretation Comments VITAMIN D, 25 OH (test code = 4958) 18 NG/ML VITAMIN D, 25 [id number] 00:00:00 Test Item Value Reference Range Interpretation Comments VITAMIN D, 25 OH (test code = 4958) 18 NG/ML MICROALBUMIN, [id number] 00:00:00 Test Item Value Reference Range Interpretation Comments ALBUMIN, URINE, RANDOM (test code 10.2 MG/DL = 10104) MICROALBUMIN, [id number] 00:00:00 Test Item Value Reference Range Interpretation Comments ALBUMIN, URINE, RANDOM (test code 10.2 MG/DL = 79395) HIV AB/AG COMBO RFLX [id number] 00:00:00 Test Item Value Reference Range Interpretation Comments HIV 1/2 4TH GEN, RFLX CONF (test NON-REACTIVE code = 3514) HIV AB/AG COMBO RFLX [id number] 00:00:00 Test Item Value Reference Range Interpretation Comments HIV 1/2 4TH GEN, RFLX CONF (test NON-REACTIVE code = 3514) VITAMIN D, 25 [id number] 00:00:00 Test Item Value Reference Range Interpretation Comments VITAMIN D, 25 OH (test code = 4958) 18 NG/ML VITAMIN D, 25 [id number] 00:00:00 Test Item Value Reference Range Interpretation Comments VITAMIN D, 25 OH (test code = 4958) 18 NG/ML MICROALBUMIN, [id number] 00:00:00 Test Item Value Reference Range Interpretation Comments ALBUMIN, URINE, RANDOM (test code 10.2 MG/DL = 67789) MICROALBUMIN, [id number] 00:00:00 Test Item Value Reference Range Interpretation Comments ALBUMIN, URINE, RANDOM (test code 10.2 MG/DL = 51362) HIV AB/AG COMBO RFLX [id number] 00:00:00 Test Item Value Reference Range Interpretation Comments HIV 1/2 4TH GEN, RFLX CONF (test NON-REACTIVE code = 3514) HIV AB/AG COMBO RFLX [id number] 00:00:00 Test Item Value Reference Range Interpretation Comments HIV 1/2 4TH GEN, RFLX CONF (test NON-REACTIVE code = 3514) VITAMIN D, 25 [id number] 00:00:00 Test Item Value Reference Range Interpretation Comments VITAMIN D, 25 OH (test code = 4958) 18 NG/ML VITAMIN D, 25 [id number] 00:00:00 Test Item Value Reference Range Interpretation Comments VITAMIN D, 25 OH (test code = 4958) 18 NG/ML MICROALBUMIN, [id number] 00:00:00 Test Item Value Reference Range Interpretation Comments ALBUMIN, URINE, RANDOM (test code 10.2 MG/DL = 10230) MICROALBUMIN, [id number] 00:00:00 Test Item Value Reference Range Interpretation Comments ALBUMIN, URINE, RANDOM (test code 10.2 MG/DL = 86409) HIV AB/AG COMBO RFLX [id number] 00:00:00 Test Item Value Reference Range Interpretation Comments HIV 1/2 4TH GEN, RFLX CONF (test NON-REACTIVE code = 3514) HIV AB/AG COMBO RFLX [id number] 00:00:00 Test Item Value Reference Range Interpretation Comments HIV 1/2 4TH GEN, RFLX CONF (test NON-REACTIVE code = 3514) VITAMIN D, 25 [id number] 00:00:00 Test Item Value Reference Range Interpretation Comments VITAMIN D, 25 OH (test code = 4958) 18 NG/ML VITAMIN D, 25 [id number] 00:00:00 Test Item Value Reference Range Interpretation Comments VITAMIN D, 25 OH (test code = 4958) 18 NG/ML MICROALBUMIN, [id number] 00:00:00 Test Item Value Reference Range Interpretation Comments ALBUMIN, URINE, RANDOM (test code 10.2 MG/DL = 82145) MICROALBUMIN, [id number] 00:00:00 Test Item Value Reference Range Interpretation Comments ALBUMIN, URINE, RANDOM (test code 10.2 MG/DL = 77883) HIV AB/AG COMBO RFLX [id number] 00:00:00 Test Item Value Reference Range Interpretation Comments HIV 1/2 4TH GEN, RFLX CONF (test NON-REACTIVE code = 3514) HIV AB/AG COMBO RFLX [id number] 00:00:00 Test Item Value Reference Range Interpretation Comments HIV 1/2 4TH GEN, RFLX CONF (test NON-REACTIVE code = 3514) VITAMIN D, 25 [id number] 00:00:00 Test Item Value Reference Range Interpretation Comments VITAMIN D, 25 OH (test code = 4958) 18 NG/ML VITAMIN D, 25 [id number] 00:00:00 Test Item Value Reference Range Interpretation Comments VITAMIN D, 25 OH (test code = 4958) 18 NG/ML MICROALBUMIN, [id number] 00:00:00 Test Item Value Reference Range Interpretation Comments ALBUMIN, URINE, RANDOM (test code 10.2 MG/DL = 04178) HIV AB/AG COMBO RFLX [id number] 00:00:00 Test Item Value Reference Range Interpretation Comments HIV 1/2 4TH GEN, RFLX CONF (test NON-REACTIVE code = 3514) MICROALBUMIN, [id number] 00:00:00 Test Item Value Reference Range Interpretation Comments ALBUMIN, URINE, RANDOM (test code 10.2 MG/DL = 24171) MICROALBUMIN, [id number] 00:00:00 Test Item Value Reference Range Interpretation Comments ALBUMIN, URINE, RANDOM (test code 10.2 MG/DL = 58301) HIV AB/AG COMBO RFLX [id number] 00:00:00 Test Item Value Reference Range Interpretation Comments HIV 1/2 4TH GEN, RFLX CONF (test NON-REACTIVE code = 3514) HIV AB/AG COMBO RFLX [id number] 00:00:00 Test Item Value Reference Range Interpretation Comments HIV 1/2 4TH GEN, RFLX CONF (test NON-REACTIVE code = 3514) VITAMIN D, 25 [id number] 00:00:00 Test Item Value Reference Range Interpretation Comments VITAMIN D, 25 OH (test code = 4958) 18 NG/ML VITAMIN D, 25 [id number] 00:00:00 Test Item Value Reference Range Interpretation Comments VITAMIN D, 25 OH (test code = 4958) 18 NG/ML VITAMIN D, 25 [id number] 00:00:00 Test Item Value Reference Range Interpretation Comments VITAMIN D, 25 OH (test code = 4958) 18 NG/ML MICROALBUMIN, [id number] 00:00:00 Test Item Value Reference Range Interpretation Comments ALBUMIN, URINE, RANDOM (test code 10.2 MG/DL = 90494) MICROALBUMIN, [id number] 00:00:00 Test Item Value Reference Range Interpretation Comments ALBUMIN, URINE, RANDOM (test code 10.2 MG/DL = 31463) HIV AB/AG COMBO RFLX [id number] 00:00:00 Test Item Value Reference Range Interpretation Comments HIV 1/2 4TH GEN, RFLX CONF (test NON-REACTIVE code = 3514) HIV AB/AG COMBO RFLX [id number] 00:00:00 Test Item Value Reference Range Interpretation Comments HIV 1/2 4TH GEN, RFLX CONF (test NON-REACTIVE code = 3514) VITAMIN D, 25 [id number] 00:00:00 Test Item Value Reference Range Interpretation Comments VITAMIN D, 25 OH (test code = 4958) 18 NG/ML VITAMIN D, 25 [id number] 00:00:00 Test Item Value Reference Range Interpretation Comments VITAMIN D, 25 OH (test code = 4958) 18 NG/ML MICROALBUMIN, [id number] 00:00:00 Test Item Value Reference Range Interpretation Comments ALBUMIN, URINE, RANDOM (test code 10.2 MG/DL = 00058) MICROALBUMIN, [id number] 00:00:00 Test Item Value Reference Range Interpretation Comments ALBUMIN, URINE, RANDOM (test code 10.2 MG/DL = 96856) HIV AB/AG COMBO RFLX [id number] 00:00:00 Test Item Value Reference Range Interpretation Comments HIV 1/2 4TH GEN, RFLX CONF (test NON-REACTIVE code = 3514) HIV AB/AG COMBO RFLX [id number] 00:00:00 Test Item Value Reference Range Interpretation Comments HIV 1/2 4TH GEN, RFLX CONF (test NON-REACTIVE code = 3514) VITAMIN D, 25 [id number] 00:00:00 Test Item Value Reference Range Interpretation Comments VITAMIN D, 25 OH (test code = 4958) 18 NG/ML VITAMIN D, 25 [id number] 00:00:00 Test Item Value Reference Range Interpretation Comments VITAMIN D, 25 OH (test code = 4958) 18 NG/ML LIPID [id number] 02:15:07 Test Item Value Reference Range Interpretation [...] CALCULATE (test code = 2238) COMPREHENSIVE METABOLIC [id number] 02:15:07 Test Item Value Reference Range Interpretation Comments GLUCOSE (test code = 349 MG/DL 70-99 H 2216) BUN (test code = 17 MG/DL 6-20 2207) CREATININE (test 0.80 MG/DL 0.60-1.30 code = 2214) eGFR (2020 CKD-EPI) 94 ML/MIN/1.73 >60 (test code = 57349) CALC BUN/CREAT (test 21 RATIO 6-28 code = 2235) SODIUM (test code = 137 MEQ/L 732-100 2999) POTASSIUM (test code 4.2 MEQ/L 3.5-5.4 = 2227) CHLORIDE (test code 99 MEQ/L 95-107 = 2214) CARBON DIOXIDE (test 16 MEQ/L 19-31 L code = 220) CALCIUM (test code = 10.0 MG/DL 8.5-10.5 2208) PROTEIN, TOTAL (test 7.8 G/DL 6.1-8.3 code = 222) ALBUMIN (test code = 4.8 G/DL 3.5-5.2 2200) CALC GLOBULIN (test 3.0 G/DL 1.9-3.7 code = 224) CALC A/G RATIO (test 1.6 RATIO 1.0-2.6 code = 223) BILIRUBIN, TOTAL 0.2 MG/DL See_Comment [Automated message] (test code = 2206) The [employer] which generated this result transmit faith reference range : <=1.2. The refe rence range was not u sed to interpret th is result as normal/abnormal . ALKALINE PHOSPHATASE 69 U/L 40-113 (test code = 2203) AST (test code = 21 U/L 9-40 2217) ALT (test code = 39 U/L 5-40 2218) LIPID [id number] 00:00:00 Test Item Value Reference Range Interpretation Comments CHOLESTEROL (test code = 2210) 206 MG/DL TRIGLYCERIDES (test code = 2232) 1120 MG/DL HDL CHOLESTEROL (test code = 24 MG/DL 0) CALC LDL CHOL (test code = 2237) (NOTE) MG/DL RISK RATIO LDL/HDL (test code = (NOTE) RATIO 2238) LIPID [id number] 00:00:00 Test Item Value Reference Range Interpretation Comments CHOLESTEROL (test code = 2210) 206 MG/DL TRIGLYCERIDES (test code = 2232) 1120 MG/DL HDL CHOLESTEROL (test code = 24 MG/DL 0) CALC LDL CHOL (test code = 2237) (NOTE) MG/DL RISK RATIO LDL/HDL (test code = (NOTE) RATIO 2238) COMPREHENSIVE METABOLIC [id number] 00:00:00 Test Item Value Reference Range Interpretation Comments GLUCOSE (test code = 2217) 349 MG/DL BUN (test code = 2208) 17 MG/DL CREATININE (test code = 2214) 0.80 MG/DL eGFR (2020 CKD-EPI) (test code 94 ML/MIN/1.73 = 33683) CALC BUN/CREAT (test code = 21 RATIO [...] code = 2219) 39 U/L COMPREHENSIVE METABOLIC [id number] 00:00:00 Test Item Value Reference Range Interpretation Comments GLUCOSE (test code = 2217) 349 MG/DL BUN (test code = 2208) 17 MG/DL CREATININE (test code = 2214) 0.80 MG/DL eGFR (2020 CKD-EPI) (test code 94 ML/MIN/1.73 = 91537) CALC BUN/CREAT (test code = 21 RATIO [...] (test code = 2219) 39 U/L LIPID [id number] 00:00:00 Test Item Value Reference Range Interpretation Comments CHOLESTEROL (test code = 2210) 206 MG/DL TRIGLYCERIDES (test code = 2232) 1120 MG/DL HDL CHOLESTEROL (test code = 24 MG/DL 2220) CALC LDL CHOL (test code = 2237) (NOTE) MG/DL RISK RATIO LDL/HDL (test code = (NOTE) RATIO 2238) LIPID [id number] 00:00:00 Test Item Value Reference Range Interpretation Comments CHOLESTEROL (test code = 2210) 206 MG/DL TRIGLYCERIDES (test code = 2232) 1120 MG/DL HDL CHOLESTEROL (test code = 24 MG/DL 2220) CALC LDL CHOL (test code = 2237) (NOTE) MG/DL RISK RATIO LDL/HDL (test code = (NOTE) RATIO 2238) COMPREHENSIVE METABOLIC [id number] 00:00:00 Test Item Value Reference Range Interpretation Comments GLUCOSE (test code = 2217) 349 MG/DL BUN (test code = 2208) 17 MG/DL CREATININE (test code = 2214) 0.80 MG/DL eGFR (2020 CKD-EPI) (test code 94 ML/MIN/1.73 = 53725) CALC BUN/CREAT (test code = 21 RATIO [...] code = 2219) 39 U/L COMPREHENSIVE METABOLIC [id number] 00:00:00 Test Item Value Reference Range Interpretation Comments GLUCOSE (test code = 2217) 349 MG/DL BUN (test code = 2208) 17 MG/DL CREATININE (test code = 2214) 0.80 MG/DL eGFR (2020 CKD-EPI) (test code 94 ML/MIN/1.73 = 28329) CALC BUN/CREAT (test code = 21 RATIO [...] (test code = 2219) 39 U/L LIPID [id number] 00:00:00 Test Item Value Reference Range Interpretation Comments CHOLESTEROL (test code = 2210) 206 MG/DL TRIGLYCERIDES (test code = 2232) 1120 MG/DL HDL CHOLESTEROL (test code = 24 MG/DL 2220) CALC LDL CHOL (test code = 2237) (NOTE) MG/DL RISK RATIO LDL/HDL (test code = (NOTE) RATIO 2238) LIPID [id number] 00:00:00 Test Item Value Reference Range Interpretation Comments CHOLESTEROL (test code = 2210) 206 MG/DL TRIGLYCERIDES (test code = 2232) 1120 MG/DL HDL CHOLESTEROL (test code = 24 MG/DL 2220) CALC LDL CHOL (test code = 2237) (NOTE) MG/DL RISK RATIO LDL/HDL (test code = (NOTE) RATIO 2238) COMPREHENSIVE METABOLIC [id number] 00:00:00 Test Item Value Reference Range Interpretation Comments GLUCOSE (test code = 2217) 349 MG/DL BUN (test code = 2208) 17 MG/DL CREATININE (test code = 2214) 0.80 MG/DL eGFR (2020 CKD-EPI) (test code 94 ML/MIN/1.73 = 16305) CALC BUN/CREAT (test code = 21 RATIO [...] code = 2204) AST (test code = 221) 21 U/L ALT (test code = 2219) 39 U/L COMPREHENSIVE METABOLIC [id number] 00:00:00 Test Item Value Reference Range Interpretation Comments GLUCOSE (test code = 2217) 349 MG/DL BUN (test code = 2208) 17 MG/DL CREATININE (test code = 2214) 0.80 MG/DL eGFR (2020 CKD-EPI) (test code 94 ML/MIN/1.73 = 12530) CALC BUN/CREAT (test code = 21 RATIO [...] (test code = 2219) 39 U/L LIPID [id number] 00:00:00 Test Item Value Reference Range Interpretation Comments CHOLESTEROL (test code = 2210) 206 MG/DL TRIGLYCERIDES (test code = 2232) 1120 MG/DL HDL CHOLESTEROL (test code = 24 MG/DL 2220) CALC LDL CHOL (test code = 2237) (NOTE) MG/DL RISK RATIO LDL/HDL (test code = (NOTE) RATIO 2238) LIPID [id number] 00:00:00 Test Item Value Reference Range Interpretation Comments CHOLESTEROL (test code = 2210) 206 MG/DL TRIGLYCERIDES (test code = 2232) 1120 MG/DL HDL CHOLESTEROL (test code = 24 MG/DL 2220) CALC LDL CHOL (test code = 2237) (NOTE) MG/DL RISK RATIO LDL/HDL (test code = (NOTE) RATIO 2238) COMPREHENSIVE METABOLIC [id number] 00:00:00 Test Item Value Reference Range Interpretation Comments GLUCOSE (test code = 2217) 349 MG/DL BUN (test code = 2208) 17 MG/DL CREATININE (test code = 2214) 0.80 MG/DL eGFR (2020 CKD-EPI) (test code 94 ML/MIN/1.73 = 03724) CALC BUN/CREAT (test code = 21 RATIO [...] code = 2219) 39 U/L COMPREHENSIVE METABOLIC [id number] 00:00:00 Test Item Value Reference Range Interpretation Comments GLUCOSE (test code = 2217) 349 MG/DL BUN (test code = 2208) 17 MG/DL CREATININE (test code = 2214) 0.80 MG/DL eGFR (2020 CKD-EPI) (test code 94 ML/MIN/1.73 = 28605) CALC BUN/CREAT (test code = 21 RATIO 2235) SODIUM (test code = 2231) 137 MEQ/L POTASSIUM (test code = 2228) 4.2 MEQ/L CHLORIDE (test code = 2215) 99 MEQ/L CARBON DIOXIDE (test code = 16 MEQ/L 2205) CALCIUM (test code = 2209) 10.0 MG/DL PROTEIN, TOTAL (test code = 7.8 G/DL 2228) ALBUMIN (test code = 220) 4.8 G/DL CALC GLOBULIN (test code = 3.0 G/DL 224) CALC A/G RATIO (test code = 1.6 RATIO 2234) BILIRUBIN, TOTAL (test code = 0.2 MG/DL 2206) ALKALINE PHOSPHATASE (test 69 U/L code = 2204) AST (test code = 2218) 21 U/L ALT (test code = 2219) 39 U/L LIPID [id number] 00:00:00 Test Item Value Reference Range Interpretation Comments CHOLESTEROL (test code = 2210) 206 MG/DL TRIGLYCERIDES (test code = 2232) 1120 MG/DL HDL CHOLESTEROL (test code = 24 MG/DL 2220) CALC LDL CHOL (test code = 2237) (NOTE) MG/DL RISK RATIO LDL/HDL (test code = (NOTE) RATIO 2238) LIPID [id number] 00:00:00 Test Item Value Reference Range Interpretation Comments CHOLESTEROL (test code = 2210) 206 MG/DL TRIGLYCERIDES (test code = 2232) 1120 MG/DL HDL CHOLESTEROL (test code = 24 MG/DL 2220) CALC LDL CHOL (test code = 2237) (NOTE) MG/DL RISK RATIO LDL/HDL (test code = (NOTE) RATIO 2238) COMPREHENSIVE METABOLIC [id number] 00:00:00 Test Item Value Reference Range Interpretation Comments GLUCOSE (test code = 2217) 349 MG/DL BUN (test code = 2208) 17 MG/DL CREATININE (test code = 2214) 0.80 MG/DL eGFR (2020 CKD-EPI) (test code 94 ML/MIN/1.73 = 22053) CALC BUN/CREAT (test code = 21 RATIO [...] code = 2219) 39 U/L COMPREHENSIVE METABOLIC [id number] 00:00:00 Test Item Value Reference Range Interpretation Comments GLUCOSE (test code = 2217) 349 MG/DL BUN (test code = 2208) 17 MG/DL CREATININE (test code = 2214) 0.80 MG/DL eGFR (2020 CKD-EPI) (test code 94 ML/MIN/1.73 = 42653) CALC BUN/CREAT (test code = 21 RATIO [...] (test code = 2219) 39 U/L LIPID [id number] 00:00:00 Test Item Value Reference Range Interpretation Comments CHOLESTEROL (test code = 2210) 206 MG/DL TRIGLYCERIDES (test code = 2232) 1120 MG/DL HDL CHOLESTEROL (test code = 24 MG/DL 2220) CALC LDL CHOL (test code = 2237) (NOTE) MG/DL RISK RATIO LDL/HDL (test code = (NOTE) RATIO 2238) LIPID [id number] 00:00:00 Test Item Value Reference Range Interpretation Comments CHOLESTEROL (test code = 2210) 206 MG/DL TRIGLYCERIDES (test code = 2232) 1120 MG/DL HDL CHOLESTEROL (test code = 24 MG/DL 2220) CALC LDL CHOL (test code = 2237) (NOTE) MG/DL RISK RATIO LDL/HDL (test code = (NOTE) RATIO 2238) COMPREHENSIVE METABOLIC [id number] 00:00:00 Test Item Value Reference Range Interpretation Comments GLUCOSE (test code = 2217) 349 MG/DL BUN (test code = 2208) 17 MG/DL CREATININE (test code = 2214) 0.80 MG/DL eGFR (2020 CKD-EPI) (test code 94 ML/MIN/1.73 = 28626) CALC BUN/CREAT (test code = 21 RATIO [...] code = 2219) 39 U/L COMPREHENSIVE METABOLIC [id number] 00:00:00 Test Item Value Reference Range Interpretation Comments GLUCOSE (test code = 2217) 349 MG/DL BUN (test code = 2208) 17 MG/DL CREATININE (test code = 2214) 0.80 MG/DL eGFR (2020 CKD-EPI) (test code 94 ML/MIN/1.73 = 38572) CALC BUN/CREAT (test code = 21 RATIO [...] (test code = 2219) 39 U/L LIPID [id number] 00:00:00 Test Item Value Reference Range Interpretation Comments CHOLESTEROL (test code = 2210) 206 MG/DL TRIGLYCERIDES (test code = 2232) 1120 MG/DL HDL CHOLESTEROL (test code = 24 MG/DL 2220) CALC LDL CHOL (test code = 2237) (NOTE) MG/DL RISK RATIO LDL/HDL (test code = (NOTE) RATIO 2238) LIPID [id number] 00:00:00 Test Item Value Reference Range Interpretation Comments CHOLESTEROL (test code = 2210) 206 MG/DL TRIGLYCERIDES (test code = 2232) 1120 MG/DL HDL CHOLESTEROL (test code = 24 MG/DL 2220) CALC LDL CHOL (test code = 2237) (NOTE) MG/DL RISK RATIO LDL/HDL (test code = (NOTE) RATIO 2238) COMPREHENSIVE METABOLIC [id number] 00:00:00 Test Item Value Reference Range Interpretation Comments GLUCOSE (test code = 2217) 349 MG/DL BUN (test code = 2208) 17 MG/DL CREATININE (test code = 2214) 0.80 MG/DL eGFR (2020 CKD-EPI) (test code 94 ML/MIN/1.73 = 91929) CALC BUN/CREAT (test code = 21 RATIO [...] code = 2219) 39 U/L COMPREHENSIVE METABOLIC [id number] 00:00:00 Test Item Value Reference Range Interpretation Comments GLUCOSE (test code = 2217) 349 MG/DL BUN (test code = 2208) 17 MG/DL CREATININE (test code = 2214) 0.80 MG/DL eGFR (2020 CKD-EPI) (test code 94 ML/MIN/1.73 = 38541) CALC BUN/CREAT (test code = 21 RATIO [...] (test code = 2219) 39 U/L LIPID [id number] 00:00:00 Test Item Value Reference Range Interpretation Comments CHOLESTEROL (test code = 2210) 206 MG/DL TRIGLYCERIDES (test code = 2232) 1120 MG/DL HDL CHOLESTEROL (test code = 24 MG/DL 0) CALC LDL CHOL (test code = 2237) (NOTE) MG/DL RISK RATIO LDL/HDL (test code = (NOTE) RATIO 2238) COMPREHENSIVE METABOLIC [id number] 00:00:00 Test Item Value Reference Range Interpretation Comments GLUCOSE (test code = 2217) 349 MG/DL BUN (test code = 2208) 17 MG/DL CREATININE (test code = 2214) 0.80 MG/DL eGFR (2020 CKD-EPI) (test code 94 ML/MIN/1.73 = 58435) CALC BUN/CREAT (test code = 21 RATIO [...] (test code = 2219) 39 U/L LIPID [id number] 00:00:00 Test Item Value Reference Range Interpretation Comments CHOLESTEROL (test code = 2210) 206 MG/DL TRIGLYCERIDES (test code = 2232) 1120 MG/DL HDL CHOLESTEROL (test code = 24 MG/DL 2220) CALC LDL CHOL (test code = 2237) (NOTE) MG/DL RISK RATIO LDL/HDL (test code = (NOTE) RATIO 2238) LIPID [id number] 00:00:00 Test Item Value Reference Range Interpretation Comments CHOLESTEROL (test code = 2210) 206 MG/DL TRIGLYCERIDES (test code = 2232) 1120 MG/DL HDL CHOLESTEROL (test code = 24 MG/DL 2220) CALC LDL CHOL (test code = 2237) (NOTE) MG/DL RISK RATIO LDL/HDL (test code = (NOTE) RATIO 2238) COMPREHENSIVE METABOLIC [id number] 00:00:00 Test Item Value Reference Range Interpretation Comments GLUCOSE (test code = 2217) 349 MG/DL BUN (test code = 2208) 17 MG/DL CREATININE (test code = 2214) 0.80 MG/DL eGFR (2020 CKD-EPI) (test code 94 ML/MIN/1.73 = 41320) CALC BUN/CREAT (test code = 21 RATIO [...] code = 2219) 39 U/L COMPREHENSIVE METABOLIC [id number] 00:00:00 Test Item Value Reference Range Interpretation Comments GLUCOSE (test code = 2217) 349 MG/DL BUN (test code = 2208) 17 MG/DL CREATININE (test code = 2214) 0.80 MG/DL eGFR (2020 CKD-EPI) (test code 94 ML/MIN/1.73 = 48416) CALC BUN/CREAT (test code = 21 RATIO [...] (test code = 2219) 39 U/L LIPID [id number] 00:00:00 Test Item Value Reference Range Interpretation Comments CHOLESTEROL (test code = 2210) 206 MG/DL TRIGLYCERIDES (test code = 2232) 1120 MG/DL HDL CHOLESTEROL (test code = 24 MG/DL 2220) CALC LDL CHOL (test code = 2237) (NOTE) MG/DL RISK RATIO LDL/HDL (test code = (NOTE) RATIO 2238) LIPID [id number] 00:00:00 Test Item Value Reference Range Interpretation Comments CHOLESTEROL (test code = 2210) 206 MG/DL TRIGLYCERIDES (test code = 2232) 1120 MG/DL HDL CHOLESTEROL (test code = 24 MG/DL 2220) CALC LDL CHOL (test code = 2237) (NOTE) MG/DL RISK RATIO LDL/HDL (test code = (NOTE) RATIO 2238) COMPREHENSIVE METABOLIC [id number] 00:00:00 Test Item Value Reference Range Interpretation Comments GLUCOSE (test code = 2217) 349 MG/DL BUN (test code = 2208) 17 MG/DL CREATININE (test code = 2214) 0.80 MG/DL eGFR (2020 CKD-EPI) (test code 94 ML/MIN/1.73 = 59406) CALC BUN/CREAT (test code = 21 RATIO [...] code = 2219) 39 U/L COMPREHENSIVE METABOLIC [id number] 00:00:00 Test Item Value Reference Range Interpretation Comments GLUCOSE (test code = 2217) 349 MG/DL BUN (test code = 2208) 17 MG/DL CREATININE (test code = 2214) 0.80 MG/DL eGFR (2020 CKD-EPI) (test code 94 ML/MIN/1.73 = 46663) CALC BUN/CREAT (test code = 21 RATIO [...] (test code = 2219) 39 U/L LIPID [id number] 00:00:00 Test Item Value Reference Range Interpretation Comments CHOLESTEROL (test code = 2210) 206 MG/DL TRIGLYCERIDES (test code = 2232) 1120 MG/DL HDL CHOLESTEROL (test code = 24 MG/DL 2220) CALC LDL CHOL (test code = 2237) (NOTE) MG/DL RISK RATIO LDL/HDL (test code = (NOTE) RATIO 2238) LIPID [id number] 00:00:00 Test Item Value Reference Range Interpretation Comments CHOLESTEROL (test code = 2210) 206 MG/DL TRIGLYCERIDES (test code = 2232) 1120 MG/DL HDL CHOLESTEROL (test code = 24 MG/DL 2220) CALC LDL CHOL (test code = 2237) (NOTE) MG/DL RISK RATIO LDL/HDL (test code = (NOTE) RATIO 2238) COMPREHENSIVE METABOLIC [id number] 00:00:00 Test Item Value Reference Range Interpretation Comments GLUCOSE (test code = 2217) 349 MG/DL BUN (test code = 2208) 17 MG/DL CREATININE (test code = 2214) 0.80 MG/DL eGFR (2020 CKD-EPI) (test code 94 ML/MIN/1.73 = 76459) CALC BUN/CREAT (test code = 21 RATIO [...] code = 2219) 39 U/L COMPREHENSIVE METABOLIC [id number] 00:00:00 Test Item Value Reference Range Interpretation Comments GLUCOSE (test code = 2217) 349 MG/DL BUN (test code = 2208) 17 MG/DL CREATININE (test code = 2214) 0.80 MG/DL eGFR (2020 CKD-EPI) (test code 94 ML/MIN/1.73 = 54005) CALC BUN/CREAT (test code = 21 RATIO [...] (test code = 2219) 39 U/L HEMOGLOBIN [id number] 04:43:57 Test Item Value Reference Range Interpretation Comments HEMOGLOBIN A1c (test 11.5 % 4.2-5.6 H [employer] AN DIABETES code = 19701) ASSOCIATION IDELINES FOR HGB A1C: PREDIABETES/INC REASED [...] ATE TESTING OR LABORATORY C ONSULTATION. HEMOGLOBIN [id number] 00:00:00 Test Item Value Reference Range Interpretation Comments HEMOGLOBIN A1c (test code = 92702) 11.5 % HEMOGLOBIN [id number] 00:00:00 Test Item Value Reference Range Interpretation Comments HEMOGLOBIN A1c (test code = 11757) 11.5 % HEMOGLOBIN [id number] 00:00:00 Test Item Value Reference Range Interpretation Comments HEMOGLOBIN A1c (test code = 06972) 11.5 % HEMOGLOBIN [id number] 00:00:00 Test Item Value Reference Range Interpretation Comments HEMOGLOBIN A1c (test code = 01697) 11.5 % HEMOGLOBIN [id number] 00:00:00 Test Item Value Reference Range Interpretation Comments HEMOGLOBIN A1c (test code = 91129) 11.5 % HEMOGLOBIN [id number] 00:00:00 Test Item Value Reference Range Interpretation Comments HEMOGLOBIN A1c (test code = 89347) 11.5 % HEMOGLOBIN [id number] 00:00:00 Test Item Value Reference Range Interpretation Comments HEMOGLOBIN A1c (test code = 08088) 11.5 % HEMOGLOBIN [id number] 00:00:00 Test Item Value Reference Range Interpretation Comments HEMOGLOBIN A1c (test code = 23872) 11.5 % HEMOGLOBIN [id number] 00:00:00 Test Item Value Reference Range Interpretation Comments HEMOGLOBIN A1c (test code = 41837) 11.5 % HEMOGLOBIN [id number] 00:00:00 Test Item Value Reference Range Interpretation Comments HEMOGLOBIN A1c (test code = 79161) 11.5 % HEMOGLOBIN [id number] 00:00:00 Test Item Value Reference Range Interpretation Comments HEMOGLOBIN A1c (test code = 92407) 11.5 % HEMOGLOBIN [id number] 00:00:00 Test Item Value Reference Range Interpretation Comments HEMOGLOBIN A1c (test code = 48780) 11.5 % HEMOGLOBIN [id number] 00:00:00 Test Item Value Reference Range Interpretation Comments HEMOGLOBIN A1c (test code = 33221) 11.5 % HEMOGLOBIN [id number] 00:00:00 Test Item Value Reference Range Interpretation Comments HEMOGLOBIN A1c (test code = 13401) 11.5 % HEMOGLOBIN [id number] 00:00:00 Test Item Value Reference Range Interpretation Comments HEMOGLOBIN A1c (test code = 17628) 11.5 % HEMOGLOBIN [id number] 00:00:00 Test Item Value Reference Range Interpretation Comments HEMOGLOBIN A1c (test code = 50578) 11.5 % HEMOGLOBIN [id number] 00:00:00 Test Item Value Reference Range Interpretation Comments HEMOGLOBIN A1c (test code = 71243) 11.5 % HEMOGLOBIN [id number] 00:00:00 Test Item Value Reference Range Interpretation Comments HEMOGLOBIN A1c (test code = 91755) 11.5 % HEMOGLOBIN [id number] 00:00:00 Test Item Value Reference Range Interpretation Comments HEMOGLOBIN A1c (test code = 02642) 11.5 % HEMOGLOBIN [id number] 00:00:00 Test Item Value Reference Range Interpretation Comments HEMOGLOBIN A1c (test code = 20108) 11.5 % HEMOGLOBIN [id number] 00:00:00 Test Item Value Reference Range Interpretation Comments HEMOGLOBIN A1c (test code = 14579) 11.5 % HEMOGLOBIN [id number] 00:00:00 Test Item Value Reference Range Interpretation Comments HEMOGLOBIN A1c (test code = 98966) 11.5 % HEMOGLOBIN [id number] 00:00:00 Test Item Value Reference Range Interpretation Comments HEMOGLOBIN A1c (test code = 76585) 11.5 % HEMOGLOBIN [id number] 00:00:00 Test Item Value Reference Range Interpretation Comments HEMOGLOBIN A1c (test code = 69362) 11.5 % HEMOGLOBIN [id number] 00:00:00 Test Item Value Reference Range Interpretation Comments HEMOGLOBIN A1c (test code = 12804) 11.5 % HEMOGLOBIN [id number] 00:00:00 Test Item Value Reference Range Interpretation Comments HEMOGLOBIN A1c (test code = 78887) 11.5 % HEMOGLOBIN [id number] 00:00:00 Test Item Value Reference Range Interpretation Comments HEMOGLOBIN A1c (test code = 62173) 11.5 % HEMOGLOBIN [id number] 00:00:00 Test Item Value Reference Range Interpretation Comments HEMOGLOBIN A1c (test code = 20452) 11.5 % HEMOGLOBIN [id number] 00:00:00 Test Item Value Reference Range Interpretation Comments HEMOGLOBIN A1c (test code = 20344) 11.5 % HEMOGLOBIN [id number] 00:00:00 Test Item Value Reference Range Interpretation Comments HEMOGLOBIN A1c (test code = 46785) 11.5 % HEMOGLOBIN [id number] 00:00:00 Test Item Value Reference Range Interpretation Comments HEMOGLOBIN A1c (test code = 80457) 11.5 % HEMOGLOBIN [id number] 00:00:00 Test Item Value Reference Range Interpretation Comments HEMOGLOBIN A1c (test code = 92827) 11.5 % CULTURE, [id number] 11:34:56SPECIMEN NUMBER: [id number] CULTURE, URINE SPECIMEN NUMBER: [id number] SPECIMEN COMMENT: URINE SOURCE:URINE REPORT STATUS: FINAL FINAL REPORT: 10/25/2021 10-50,000 CFU/ML UROGENITAL NORMA PRESENT NO COMM ON PATHOGENSCULTURE, [id number] 00:00:00 Test Item Value Reference Range Interpretation Comments CULTURE, URINE (test SPECIMEN NUMBER: code = 50908) [id number] CULTURE, [id number] 00:00:00 Test Item Value Reference Range Interpretation Comments CULTURE, URINE (test SPECIMEN NUMBER: code = 06112) [id number] CULTURE, [id number] 00:00:00 Test Item Value Reference Range Interpretation Comments CULTURE, URINE (test SPECIMEN NUMBER: code = 10467) [id number] CULTURE, [id number] 00:00:00 Test Item Value Reference Range Interpretation Comments CULTURE, URINE (test SPECIMEN NUMBER: code = 00920) [id number] CULTURE, [id number] 00:00:00 Test Item Value Reference Range Interpretation Comments CULTURE, URINE (test SPECIMEN NUMBER: code = 34962) [id number] CULTURE, [id number] 00:00:00 Test Item Value Reference Range Interpretation Comments CULTURE, URINE (test SPECIMEN NUMBER: code = 39843) [id number] CULTURE, [id number] 00:00:00 Test Item Value Reference Range Interpretation Comments CULTURE, URINE (test SPECIMEN NUMBER: code = 59709) [id number] CULTURE, [id number] 00:00:00 Test Item Value Reference Range Interpretation Comments CULTURE, URINE (test SPECIMEN NUMBER: code = 09274) [id number] CULTURE, [id number] 00:00:00 Test Item Value Reference Range Interpretation Comments CULTURE, URINE (test SPECIMEN NUMBER: code = 66599) [id number] CULTURE, [id number] 00:00:00 Test Item Value Reference Range Interpretation Comments CULTURE, URINE (test SPECIMEN NUMBER: code = 80788) [id number] CULTURE, [id number] 00:00:00 Test Item Value Reference Range Interpretation Comments CULTURE, URINE (test SPECIMEN NUMBER: code = 90778) [id number] CULTURE, [id number] 00:00:00 Test Item Value Reference Range Interpretation Comments CULTURE, URINE (test SPECIMEN NUMBER: code = 83136) [id number] CULTURE, [id number] 00:00:00 Test Item Value Reference Range Interpretation Comments CULTURE, URINE (test SPECIMEN NUMBER: code = 89583) [id number] CULTURE, [id number] 00:00:00 Test Item Value Reference Range Interpretation Comments CULTURE, URINE (test SPECIMEN NUMBER: code = 93072) [id number] CULTURE, [id number] 00:00:00 Test Item Value Reference Range Interpretation Comments CULTURE, URINE (test SPECIMEN NUMBER: code = 93958) [id number] CULTURE, [id number] 00:00:00 Test Item Value Reference Range Interpretation Comments CULTURE, URINE (test SPECIMEN NUMBER: code = 88371) [id number] CULTURE, [id number] 00:00:00 Test Item Value Reference Range Interpretation Comments CULTURE, URINE (test SPECIMEN NUMBER: code = 11627) [id number] CULTURE, [id number] 00:00:00 Test Item Value Reference Range Interpretation Comments CULTURE, URINE (test SPECIMEN NUMBER: code = 21553) [id number] CULTURE, [id number] 00:00:00 Test Item Value Reference Range Interpretation Comments CULTURE, URINE (test SPECIMEN NUMBER: code = 99186) [id number] CULTURE, [id number] 00:00:00 Test Item Value Reference Range Interpretation Comments CULTURE, URINE (test SPECIMEN NUMBER: code = 03072) [id number] CULTURE, [id number] 00:00:00 Test Item Value Reference Range Interpretation Comments CULTURE, URINE (test SPECIMEN NUMBER: code = 19786) [id number] VAGINAL PATHOGENS DNA [id number] 11:55:20 Test Item Value Reference Range Interpretation Comments ANDIE SPECIES (test NEGATIVE NEGATIVE code = 47949) G. VAGINALIS (test NEGATIVE NEGATIVE code = 50843) T. VAGINALIS (test NEGATIVE NEGATIVE UNLESS O THERWISE code = 86913) INDICATED, ALL TESTING PERFORMED [facility] PATHOLOGY [facility] [address] [place] [address] 4 LABORATORY DIRE CTOR: NOAH TODD M.D. CLIA NUMBER [id number] [facility] [place]. [id number] VAGINAL PATHOGENS DNA [id number] 00:00:00 Test Item Value Reference Range Interpretation Comments ANDIE SPECIES (test code = 68530) NEGATIVE G. VAGINALIS (test code = 28496) NEGATIVE T. VAGINALIS (test code = 57255) NEGATIVE VAGINAL PATHOGENS DNA [id number] 00:00:00 Test Item Value Reference Range Interpretation Comments NADIE SPECIES (test code = 46965) NEGATIVE G. VAGINALIS (test code = 80997) NEGATIVE T. VAGINALIS (test code = 76670) NEGATIVE VAGINAL PATHOGENS DNA [id number] 00:00:00 Test Item Value Reference Range Interpretation Comments ANDIE SPECIES (test code = 08364) NEGATIVE G. VAGINALIS (test code = 84370) NEGATIVE T. VAGINALIS (test code = 71409) NEGATIVE VAGINAL PATHOGENS DNA [id number] 00:00:00 Test Item Value Reference Range Interpretation Comments ANDIE SPECIES (test code = 76937) NEGATIVE G. VAGINALIS (test code = 89320) NEGATIVE T. VAGINALIS (test code = 65378) NEGATIVE VAGINAL PATHOGENS DNA [id number] 00:00:00 Test Item Value Reference Range Interpretation Comments ANDIE SPECIES (test code = 86519) NEGATIVE G. VAGINALIS (test code = 82381) NEGATIVE T. VAGINALIS (test code = ) NEGATIVE VAGINAL PATHOGENS DNA [id number] 00:00:00 Test Item Value Reference Range Interpretation Comments ANDIE SPECIES (test code = 91717) NEGATIVE G. VAGINALIS (test code = 03993) NEGATIVE T. VAGINALIS (test code = 92654) NEGATIVE VAGINAL PATHOGENS DNA [id number] 00:00:00 Test Item Value Reference Range Interpretation Comments ANDIE SPECIES (test code = 69051) NEGATIVE G. VAGINALIS (test code = 49033) NEGATIVE T. VAGINALIS (test code = 41366) NEGATIVE VAGINAL PATHOGENS DNA [id number] 00:00:00 Test Item Value Reference Range Interpretation Comments ANDIE SPECIES (test code = 64616) NEGATIVE G. VAGINALIS (test code = 04704) NEGATIVE T. VAGINALIS (test code = 38301) NEGATIVE VAGINAL PATHOGENS DNA [id number] 00:00:00 Test Item Value Reference Range Interpretation Comments ANDIE SPECIES (test code = 11713) NEGATIVE G. VAGINALIS (test code = 97544) NEGATIVE T. VAGINALIS (test code = 37274) NEGATIVE VAGINAL PATHOGENS DNA [id number] 00:00:00 Test Item Value Reference Range Interpretation Comments ANDIE SPECIES (test code = 95621) NEGATIVE G. VAGINALIS (test code = 90013) NEGATIVE T. VAGINALIS (test code = 27582) NEGATIVE VAGINAL PATHOGENS DNA [id number] 00:00:00 Test Item Value Reference Range Interpretation Comments ANDIE SPECIES (test code = 91417) NEGATIVE G. VAGINALIS (test code = 60729) NEGATIVE T. VAGINALIS (test code = 10541) NEGATIVE VAGINAL PATHOGENS DNA [id number] 00:00:00 Test Item Value Reference Range Interpretation Comments ANDIE SPECIES (test code = 02415) NEGATIVE G. VAGINALIS (test code = 72175) NEGATIVE T. VAGINALIS (test code = 27361) NEGATIVE VAGINAL PATHOGENS DNA [id number] 00:00:00 Test Item Value Reference Range Interpretation Comments ANDIE SPECIES (test code = 77453) NEGATIVE G. VAGINALIS (test code = 69774) NEGATIVE T. VAGINALIS (test code = 18304) NEGATIVE VAGINAL PATHOGENS DNA [id number] 00:00:00 Test Item Value Reference Range Interpretation Comments ANDIE SPECIES (test code = 08019) NEGATIVE G. VAGINALIS (test code = 36649) NEGATIVE T. VAGINALIS (test code = 99475) NEGATIVE VAGINAL PATHOGENS DNA [id number] 00:00:00 Test Item Value Reference Range Interpretation Comments ANDIE SPECIES (test code = 71423) NEGATIVE G. VAGINALIS (test code = 99071) NEGATIVE T. VAGINALIS (test code = 57504) NEGATIVE VAGINAL PATHOGENS DNA [id number] 00:00:00 Test Item Value Reference Range Interpretation Comments ANDIE SPECIES (test code = 61872) NEGATIVE G. VAGINALIS (test code = 99249) NEGATIVE T. VAGINALIS (test code = 98255) NEGATIVE VAGINAL PATHOGENS DNA [id number] 00:00:00 Test Item Value Reference Range Interpretation Comments ANDIE SPECIES (test code = 94391) NEGATIVE G. VAGINALIS (test code = 05007) NEGATIVE T. VAGINALIS (test code = 10231) NEGATIVE VAGINAL PATHOGENS DNA [id number] 00:00:00 Test Item Value Reference Range Interpretation Comments ANDIE SPECIES (test code = 44022) NEGATIVE G. VAGINALIS (test code = 96385) NEGATIVE T. VAGINALIS (test code = 60745) NEGATIVE VAGINAL PATHOGENS DNA [id number] 00:00:00 Test Item Value Reference Range Interpretation Comments ANDIE SPECIES (test code = 75813) NEGATIVE G. VAGINALIS (test code = 46524) NEGATIVE T. VAGINALIS (test code = 68892) NEGATIVE VAGINAL PATHOGENS DNA [id number] 00:00:00 Test Item Value Reference Range Interpretation Comments ANDIE SPECIES (test code = 52398) NEGATIVE G. VAGINALIS (test code = 56857) NEGATIVE T. VAGINALIS (test code = 76098) NEGATIVE VAGINAL PATHOGENS DNA [id number] 00:00:00 Test Item Value Reference Range Interpretation Comments ANDIE SPECIES (test code = 10944) NEGATIVE G. VAGINALIS (test code = 71717) NEGATIVE T. VAGINALIS (test code = 77628) NEGATIVE POCT GLUCOSE (AUTOMATED)2021-10-17 01:51:54 Test Item Value Reference Range Interpretation Comments POCT GLU (test code = 5075614804) 365 mg/dL 70-110 H Lab Interpretation (test code = Abnormal 64133-8) [facility] GLUCOSE (AUTOMATED)2021-10-17 00:46:51 Test Item Value Reference Range Interpretation Comments POCT GLU (test code = 3913471844) 435 mg/dL 70-110 H Lab Interpretation (test code = Abnormal 26271-8[facility]30[facility] 00:41:00 Test Item Value Reference Range Interpretation Comments POCT Glu (age>30days) (test code = 435 mg/dL 70-110 A 3342) Lab Interpretation (test code = Abnormal 97562-9) [facility] [id number] 23:40:42 Test Item Value Reference Interpretation Comments Range TROPONIN I (test 0.001 ng/mL See_Comment [Automated code = 5097068017) message] The system which generated this result transmitted reference range : <=0.034. The reference range was not used to interpret this result as normal/abnormal . CALVIN (test code = Reference (Normal) CALVNI) Range (defined by the 99th percentile reference [...] biotin. Lab Interpretation Normal (test code = 03712-7) [id number] 23:37:40 Test Item Value Reference Range Interpretation Comments NT-proBNP (test code 20 pg/mL See_Comment [Autom ated = 5124409973) message] The system which generated this result transmitted reference range : <=125. The reference range was not used to interpret this result as normal/abnormal . CALVIN (test code = CALVIN) Biotin has been reported to cause a negative bias, interpret results relative to patient's use of biotin. Lab Interpretation Normal (test code = 28875-5) [facility] ([facility]36[facility]2021-10-16 23:29:18 Test Item Value Reference Range Interpretation Comments NA (test code = 134 mmol/L 135-145 L 2960322552) K (test code = 4.4 mmol/L 3.5-5.0 8485225601) CL (test code = 97 mmol/L 98-108 L 8031162679) CO2 TOTAL (test code = 23 mmol/L 23-31 2459911930) AGAP (test code = 2-16 3086548668) BUN (test code = 21 mg/dL 7-23 7894331145) GLUCOSE (test code = 431 mg/dL 70-110 H 6914570451) CREATININE (test code = 0.88 mg/dL 0.50-1.04 6775860863) TOTAL BILI (test code = 0.5 mg/dL 0.1-1.6 0642628246) CALCIUM (test code = 9.2 mg/dL 8.6-10.6 4142082117) T PROTEIN (test code = 7.4 g/dL 6.3-8.2 2062121188) ALBUMIN (test code = 4.7 g/dL 3.5-5.0 1084162870) ALK PHOS (test code = 52 U/L 34-122 8574807952) ALTv (test code = 30 U/L 5-35 1742-6) AST(SGOT) (test code = 25 U/L 13-40 7729295143) eGFR (test code = mL/min/1.73m2 8120385444) CALVIN (test code = CALVIN) Association of [...] tests). Lab Interpretation Abnormal (test code = 23753-8) [facility] WITH [id number] 23:20:10 Test Item Value Reference Range Interpretation Comments WBC (test code = See_Comment [Automated 1035-2) message] The sy stem which generated this result transmitted reference range : 4.30 - 11.10 10*3/?L. The reference range was not used to interpret this result as normal/abnormal . RBC (test code = See_Comment [Automated 119-8) message] The sy stem which generated this [...] RDW-SD (test code = 40.5 fL 39.0-49.9 99045-1) RDW-CV (test code = 13.5 % 12.0-15.5 788-0) PLT (test code = See_Comment [Automated 777-3) message] The sy stem which generated this result transmitted reference range : 166 - 358 10*3/ ?L. The reference r doretha was not used to interpret this result as normal/abnormal . MPV (test code = 9.6 fL 9.5-12.9 36198-3) NRBC/100 WBC (test See_Comment [Automat ed code = [id number]) message] The system which generated this result transmitted reference range : 0.0 - 10.0 /100 WBCs. The refer ence range was not u sed to interpret th is result as normal/abnormal . NRBC x10^3 (test code <0.01 See_Comment [Auto mated = [id number]) message] The s ystem which generated this result transmitted reference range : 10*3/?L. The reference range was not used to interpret this result as normal/abnormal . GRAN MAT (NEUT) % 43.2 % (test code = 770-8) IMM GRAN % (test code 0.70 % = [id number]) LYMPH % (test code = 42.8 % 736-9) MONO % (test code = 9.2 % 5905-5) EOS % (test code = 3.0 % 713-8) BASO % (test code = 1.1 % 706-2) GRAN MAT x10^3(ANC) 3.15 10*3/uL 1.88-7.09 (test code = [id number]) IMM GRAN x10^3 (test 0.05 10*3/uL 0.00-0.06 code = [id number]) LYMPH x10^3 (test code 3.12 10*3/uL 1.32-3.29 = 731-0) MONO x10^3 (test code 0.67 10*3/uL 0.33-0.92 = 742-7) EOS x10^3 (test code = 0.22 10*3/uL 0.03-0.39 711-2) BASO x10^3 (test code 0.08 10*3/uL 0.01-0.07 H = 704-7) Lab Interpretation Abnormal (test code = 07777-5) [facility] [id number] 23:09:32 Test Item Value Reference Range Interpretation Comments LACTIC ACID (test code = 1.94 mmol/L 0.50-2.20 [id number]) Lab Interpretation (test code = Normal 34863-1) [facility] [id number] 22:34:00 Test Item Value Reference Range Interpretation Comments POCT PREG (test code = 1605) Negative On board controls acceptable with Present C Line (test code = 3574) POCT PREG LOT # (test code = 3575) [id number] POCT PREG TEST DATE (test 2023-04-09 code = 3576) Lab Interpretation (test code = Normal 84251-1) [facility] [id number] 08:52:36SPECIMEN NUMBER: [id number] CULTURE, URINE SPECIMEN NUMBER: [id number] SPECIMEN COMMENT: URINE SOURCE:URINE REPORT STATUS: FINAL FINAL REPORT: 10/12/2021 >100,000 CFU/ML UROGENITAL NORMA PRESENT NO COMMON PATHOGENS UNLESS OTHERWISE INDICATED, ALL TESTING PERFORMED [facility] [address] [place] [address] LINE O SCRIBE OPERATOR: NOAH DICKENS M.D. CLIA NUMBER [id number] [facility]. [id number], [id number] 00:00:00 Test Item Value Reference Range Interpretation Comments CULTURE, URINE (test SPECIMEN NUMBER: code = 21798) [id number] CULTURE, [id number] 00:00:00 Test Item Value Reference Range Interpretation Comments CULTURE, URINE (test SPECIMEN NUMBER: code = 69749) [id number] CULTURE, [id number] 00:00:00 Test Item Value Reference Range Interpretation Comments CULTURE, URINE (test SPECIMEN NUMBER: code = 05302) [id number] CULTURE, [id number] 00:00:00 Test Item Value Reference Range Interpretation Comments CULTURE, URINE (test SPECIMEN NUMBER: code = 16264) [id number] CULTURE, [id number] 00:00:00 Test Item Value Reference Range Interpretation Comments CULTURE, URINE (test SPECIMEN NUMBER: code = 93141) [id number] CULTURE, [id number] 00:00:00 Test Item Value Reference Range Interpretation Comments CULTURE, URINE (test SPECIMEN NUMBER: code = 32883) [id number] CULTURE, [id number] 00:00:00 Test Item Value Reference Range Interpretation Comments CULTURE, URINE (test SPECIMEN NUMBER: code = 32089) [id number] CULTURE, [id number] 00:00:00 Test Item Value Reference Range Interpretation Comments CULTURE, URINE (test SPECIMEN NUMBER: code = 54178) [id number] CULTURE, [id number] 00:00:00 Test Item Value Reference Range Interpretation Comments CULTURE, URINE (test SPECIMEN NUMBER: code = 45632) [id number] CULTURE, [id number] 00:00:00 Test Item Value Reference Range Interpretation Comments CULTURE, URINE (test SPECIMEN NUMBER: code = 10403) [id number] CULTURE, [id number] 00:00:00 Test Item Value Reference Range Interpretation Comments CULTURE, URINE (test SPECIMEN NUMBER: code = 47652) [id number] CULTURE, [id number] 00:00:00 Test Item Value Reference Range Interpretation Comments CULTURE, URINE (test SPECIMEN NUMBER: code = 52889) [id number] CULTURE, [id number] 00:00:00 Test Item Value Reference Range Interpretation Comments CULTURE, URINE (test SPECIMEN NUMBER: code = 79717) [id number] CULTURE, [id number] 00:00:00 Test Item Value Reference Range Interpretation Comments CULTURE, URINE (test SPECIMEN NUMBER: code = 30783) [id number] CULTURE, [id number] 00:00:00 Test Item Value Reference Range Interpretation Comments CULTURE, URINE (test SPECIMEN NUMBER: code = 28831) [id number] CULTURE, [id number] 00:00:00 Test Item Value Reference Range Interpretation Comments CULTURE, URINE (test SPECIMEN NUMBER: code = 44383) [id number] CULTURE, [id number] 00:00:00 Test Item Value Reference Range Interpretation Comments CULTURE, URINE (test SPECIMEN NUMBER: code = 39293) [id number] CULTURE, [id number] 00:00:00 Test Item Value Reference Range Interpretation Comments CULTURE, URINE (test SPECIMEN NUMBER: code = 90554) [id number] CULTURE, [id number] 00:00:00 Test Item Value Reference Range Interpretation Comments CULTURE, URINE (test SPECIMEN NUMBER: code = 94468) [id number] CULTURE, [id number] 00:00:00 Test Item Value Reference Range Interpretation Comments CULTURE, URINE (test SPECIMEN NUMBER: code = 84270) [id number] CULTURE, [id number] 00:00:00 Test Item Value Reference Range Interpretation Comments CULTURE, URINE (test SPECIMEN NUMBER: code = 15323) [id number] URINE CULTURE, NO [id number] 09:46:36SPECIMEN NUMBER: [id number] URINE CULTURE, NO SENS SPECIMEN NUMBER: [id number] SPECIMEN COMMENT: URINESOURCE: URINE REPORT STATUS: FINAL FINAL REPORT: 10/08/2021 50-100,000 CFU/ML UROGENITAL NORMA PRESENT NO COMMON PATHOGENSURINE CULTURE, NO [id number] 00:00:00 Test Item Value Reference Range Interpretation Comments URINE CULTURE, NO SPECIMEN NUMBER: SENS (test code = 175858142 69303) URINE CULTURE, NO [id number] 00:00:00 Test Item Value Reference Range Interpretation Comments URINE CULTURE, NO SPECIMEN NUMBER: SENS (test code = 189177859 04129) URINE CULTURE, NO [id number] 00:00:00 Test Item Value Reference Range Interpretation Comments URINE CULTURE, NO SPECIMEN NUMBER: SENS (test code = 858033554 94319) URINE CULTURE, NO [id number] 00:00:00 Test Item Value Reference Range Interpretation Comments URINE CULTURE, NO SPECIMEN NUMBER: SENS (test code = 231718337 15204) URINE CULTURE, NO [id number] 00:00:00 Test Item Value Reference Range Interpretation Comments URINE CULTURE, NO SPECIMEN NUMBER: SENS (test code = 145116862 79820) URINE CULTURE, NO [id number] 00:00:00 Test Item Value Reference Range Interpretation Comments URINE CULTURE, NO SPECIMEN NUMBER: SENS (test code = 838775671 68375) URINE CULTURE, NO [id number] 00:00:00 Test Item Value Reference Range Interpretation Comments URINE CULTURE, NO SPECIMEN NUMBER: SENS (test code = 596340407 43273) URINE CULTURE, NO [id number] 00:00:00 Test Item Value Reference Range Interpretation Comments URINE CULTURE, NO SPECIMEN NUMBER: SENS (test code = 479852461 24273) URINE CULTURE, NO [id number] 00:00:00 Test Item Value Reference Range Interpretation Comments URINE CULTURE, NO SPECIMEN NUMBER: SENS (test code = 096684888 90741) URINE CULTURE, NO [id number] 00:00:00 Test Item Value Reference Range Interpretation Comments URINE CULTURE, NO SPECIMEN NUMBER: SENS (test code = 189147734 56593) URINE CULTURE, NO [id number] 00:00:00 Test Item Value Reference Range Interpretation Comments URINE CULTURE, NO SPECIMEN NUMBER: SENS (test code = 261049384 42478) URINE CULTURE, NO [id number] 00:00:00 Test Item Value Reference Range Interpretation Comments URINE CULTURE, NO SPECIMEN NUMBER: SENS (test code = 362740519 12722) URINE CULTURE, NO [id number] 00:00:00 Test Item Value Reference Range Interpretation Comments URINE CULTURE, NO SPECIMEN NUMBER: SENS (test code = 325062511 64431) URINE CULTURE, NO [id number] 00:00:00 Test Item Value Reference Range Interpretation Comments URINE CULTURE, NO SPECIMEN NUMBER: SENS (test code = 041212078 41523) URINE CULTURE, NO [id number] 00:00:00 Test Item Value Reference Range Interpretation Comments URINE CULTURE, NO SPECIMEN NUMBER: SENS (test code = 532617838 37600) URINE CULTURE, NO [id number] 00:00:00 Test Item Value Reference Range Interpretation Comments URINE CULTURE, NO SPECIMEN NUMBER: SENS (test code = 419348531 40097) URINE CULTURE, NO [id number] 00:00:00 Test Item Value Reference Range Interpretation Comments URINE CULTURE, NO SPECIMEN NUMBER: SENS (test code = 108028535 45435) URINE CULTURE, NO [id number] 00:00:00 Test Item Value Reference Range Interpretation Comments URINE CULTURE, NO SPECIMEN NUMBER: SENS (test code = 719359525 12321) URINE CULTURE, NO [id number] 00:00:00 Test Item Value Reference Range Interpretation Comments URINE CULTURE, NO SPECIMEN NUMBER: SENS (test code = 745597408 46199) URINE CULTURE, NO [id number] 00:00:00 Test Item Value Reference Range Interpretation Comments URINE CULTURE, NO SPECIMEN NUMBER: SENS (test code = 406706206 78662) URINE CULTURE, NO [id number] 00:00:00 Test Item Value Reference Range Interpretation Comments URINE CULTURE, NO SPECIMEN NUMBER: SENS (test code = 812056293 98032) CBC W/AUTO DIFF WITH [id number] 07:54:02 Test Item Value Reference Range Interpretation [...] RBCS 0.00 K/UL 0.00-0.11 (test code = 03929) COMPREHENSIVE METABOLIC [id number] 05:34:02 Test Item Value Reference Range Interpretation Comments GLUCOSE (test code = 108 MG/DL 70-99 H 2216) BUN (test code = 17 MG/DL 6-20 2207) CREATININE (test 0.84 MG/DL 0.60-1.30 code = 2213) eGFR (2020 CKD-EPI) 88 >60 (test code = 99371) ML/MIN/1.73 CALC BUN/CREAT (test 20 RATIO 6-28 code = 223) SODIUM (test code = 141 MEQ/L 801-885 0283) POTASSIUM (test code 4.0 MEQ/L 3.5-5.4 = 2227) CHLORIDE (test code 100 MEQ/L 95-107 = 2214) CARBON DIOXIDE (test 23 MEQ/L 19-31 code = 2205) CALCIUM (test code = 10.3 MG/DL 8.5-10.5 2208) PROTEIN, TOTAL (test 7.6 G/DL 6.1-8.3 code = 2228) ALBUMIN (test code = 4.7 G/DL 3.5-5.2 2200) CALC GLOBULIN (test 2.9 G/DL 1.9-3.7 code = 2239) CALC A/G RATIO (test 1.6 RATIO 1.0-2.6 code = 2233) BILIRUBIN, TOTAL <0.2 MG/DL See_Comment [Automated message] (test code = 2206) The syste [employer] which generated this result transmitted ref erence [...] [facility] [place] [address] [place] [address] [facility] DIRECTOR: George BERNARDIA NUMBER [id number] CAP ACCREDITATION N O. [id number] CBC W/AUTO [id number] 00:00:00 Test Item Value Reference Range Interpretation [...] NUCLEATED RBCS (test code = 0.00 K/UL 96935) CBC W/AUTO [id number] 00:00:00 Test Item Value Reference Range Interpretation [...] NUCLEATED RBCS (test code = 0.00 K/UL 99510) CBC W/AUTO [id number] 00:00:00 Test Item Value Reference Range Interpretation [...] NUCLEATED RBCS (test code = 0.00 K/UL 60769) COMPREHENSIVE METABOLIC [id number] 00:00:00 Test Item Value Reference Range Interpretation Comments GLUCOSE (test code = 2217) 108 MG/DL BUN (test code = 2208) 17 MG/DL CREATININE (test code = 2214) 0.84 MG/DL eGFR (2020 CKD-EPI) (test code 88 ML/MIN/1.73 = 06317) CALC BUN/CREAT (test code = 20 RATIO [...] code = 2219) 28 U/L COMPREHENSIVE METABOLIC [id number] 00:00:00 Test Item Value Reference Range Interpretation Comments GLUCOSE (test code = 2217) 108 MG/DL BUN (test code = 2208) 17 MG/DL CREATININE (test code = 2214) 0.84 MG/DL eGFR (2020 CKD-EPI) (test code 88 ML/MIN/1.73 = 01919) CALC BUN/CREAT (test code = 20 RATIO [...] code = 2219) 28 U/L CBC W/AUTO [id number] 00:00:00 Test Item Value Reference Range Interpretation [...] NUCLEATED RBCS (test code = 0.00 K/UL 38119) CBC W/AUTO [id number] 00:00:00 Test Item Value Reference Range Interpretation [...] NUCLEATED RBCS (test code = 0.00 K/UL 75487) CBC W/AUTO [id number] 00:00:00 Test Item Value Reference Range Interpretation [...] NUCLEATED RBCS (test code = 0.00 K/UL 35387) COMPREHENSIVE METABOLIC [id number] 00:00:00 Test Item Value Reference Range Interpretation Comments GLUCOSE (test code = 2217) 108 MG/DL BUN (test code = 2208) 17 MG/DL CREATININE (test code = 2214) 0.84 MG/DL eGFR (2020 CKD-EPI) (test code 88 ML/MIN/1.73 = 72791) CALC BUN/CREAT (test code = 20 RATIO [...] code = 2219) 28 U/L COMPREHENSIVE METABOLIC [id number] 00:00:00 Test Item Value Reference Range Interpretation Comments GLUCOSE (test code = 2217) 108 MG/DL BUN (test code = 2208) 17 MG/DL CREATININE (test code = 2214) 0.84 MG/DL eGFR (2020 CKD-EPI) (test code 88 ML/MIN/1.73 = 87660) CALC BUN/CREAT (test code = 20 RATIO [...] code = 2219) 28 U/L CBC W/AUTO [id number] 00:00:00 Test Item Value Reference Range Interpretation [...] NUCLEATED RBCS (test code = 0.00 K/UL 00278) CBC W/AUTO [id number] 00:00:00 Test Item Value Reference Range Interpretation [...] NUCLEATED RBCS (test code = 0.00 K/UL 11022) CBC W/AUTO [id number] 00:00:00 Test Item Value Reference Range Interpretation [...] NUCLEATED RBCS (test code = 0.00 K/UL 81954) COMPREHENSIVE METABOLIC [id number] 00:00:00 Test Item Value Reference Range Interpretation Comments GLUCOSE (test code = 2217) 108 MG/DL BUN (test code = 2208) 17 MG/DL CREATININE (test code = 2214) 0.84 MG/DL eGFR (2020 CKD-EPI) (test code 88 ML/MIN/1.73 = 49198) CALC BUN/CREAT (test code = 20 RATIO [...] code = 2219) 28 U/L COMPREHENSIVE METABOLIC [id number] 00:00:00 Test Item Value Reference Range Interpretation Comments GLUCOSE (test code = 2217) 108 MG/DL BUN (test code = 2208) 17 MG/DL CREATININE (test code = 2214) 0.84 MG/DL eGFR (2020 CKD-EPI) (test code 88 ML/MIN/1.73 = 50809) CALC BUN/CREAT (test code = 20 RATIO [...] code = 2219) 28 U/L CBC W/AUTO [id number] 00:00:00 Test Item Value Reference Range Interpretation [...] NUCLEATED RBCS (test code = 0.00 K/UL 62907) CBC W/AUTO [id number] 00:00:00 Test Item Value Reference Range Interpretation [...] NUCLEATED RBCS (test code = 0.00 K/UL 24761) CBC W/AUTO [id number] 00:00:00 Test Item Value Reference Range Interpretation [...] NUCLEATED RBCS (test code = 0.00 K/UL 27809) COMPREHENSIVE METABOLIC [id number] 00:00:00 Test Item Value Reference Range Interpretation Comments GLUCOSE (test code = 2217) 108 MG/DL BUN (test code = 2208) 17 MG/DL CREATININE (test code = 2214) 0.84 MG/DL eGFR (2020 CKD-EPI) (test code 88 ML/MIN/1.73 = 94430) CALC BUN/CREAT (test code = 20 RATIO [...] code = 2219) 28 U/L COMPREHENSIVE METABOLIC [id number] 00:00:00 Test Item Value Reference Range Interpretation Comments GLUCOSE (test code = 2217) 108 MG/DL BUN (test code = 2208) 17 MG/DL CREATININE (test code = 2214) 0.84 MG/DL eGFR (2020 CKD-EPI) (test code 88 ML/MIN/1.73 = 35214) CALC BUN/CREAT (test code = 20 RATIO [...] code = 2219) 28 U/L CBC W/AUTO [id number] 00:00:00 Test Item Value Reference Range Interpretation [...] NUCLEATED RBCS (test code = 0.00 K/UL 95243) CBC W/AUTO [id number] 00:00:00 Test Item Value Reference Range Interpretation [...] NUCLEATED RBCS (test code = 0.00 K/UL 16095) CBC W/AUTO [id number] 00:00:00 Test Item Value Reference Range Interpretation [...] NUCLEATED RBCS (test code = 0.00 K/UL 14964) COMPREHENSIVE METABOLIC [id number] 00:00:00 Test Item Value Reference Range Interpretation Comments GLUCOSE (test code = 2217) 108 MG/DL BUN (test code = 2208) 17 MG/DL CREATININE (test code = 2214) 0.84 MG/DL eGFR (2020 CKD-EPI) (test code 88 ML/MIN/1.73 = 45465) CALC BUN/CREAT (test code = 20 RATIO [...] code = 2219) 28 U/L COMPREHENSIVE METABOLIC [id number] 00:00:00 Test Item Value Reference Range Interpretation Comments GLUCOSE (test code = 2217) 108 MG/DL BUN (test code = 2208) 17 MG/DL CREATININE (test code = 2214) 0.84 MG/DL eGFR (2020 CKD-EPI) (test code 88 ML/MIN/1.73 = 12917) CALC BUN/CREAT (test code = 20 RATIO [...] code = 2219) 28 U/L CBC W/AUTO [id number] 00:00:00 Test Item Value Reference Range Interpretation [...] NUCLEATED RBCS (test code = 0.00 K/UL 69809) CBC W/AUTO [id number] 00:00:00 Test Item Value Reference Range Interpretation [...] NUCLEATED RBCS (test code = 0.00 K/UL 67649) CBC W/AUTO [id number] 00:00:00 Test Item Value Reference Range Interpretation [...] NUCLEATED RBCS (test code = 0.00 K/UL 07984) COMPREHENSIVE METABOLIC [id number] 00:00:00 Test Item Value Reference Range Interpretation Comments GLUCOSE (test code = 2217) 108 MG/DL BUN (test code = 2208) 17 MG/DL CREATININE (test code = 2214) 0.84 MG/DL eGFR (2020 CKD-EPI) (test code 88 ML/MIN/1.73 = 54566) CALC BUN/CREAT (test code = 20 RATIO [...] code = 2219) 28 U/L COMPREHENSIVE METABOLIC [id number] 00:00:00 Test Item Value Reference Range Interpretation Comments GLUCOSE (test code = 2217) 108 MG/DL BUN (test code = 2208) 17 MG/DL CREATININE (test code = 2214) 0.84 MG/DL eGFR (2020 CKD-EPI) (test code 88 ML/MIN/1.73 = 72408) CALC BUN/CREAT (test code = 20 RATIO [...] code = 2219) 28 U/L CBC W/AUTO [id number] 00:00:00 Test Item Value Reference Range Interpretation [...] NUCLEATED RBCS (test code = 0.00 K/UL 91842) CBC W/AUTO [id number] 00:00:00 Test Item Value Reference Range Interpretation [...] NUCLEATED RBCS (test code = 0.00 K/UL 80036) CBC W/AUTO [id number] 00:00:00 Test Item Value Reference Range Interpretation [...] NUCLEATED RBCS (test code = 0.00 K/UL 78115) COMPREHENSIVE METABOLIC [id number] 00:00:00 Test Item Value Reference Range Interpretation Comments GLUCOSE (test code = 2217) 108 MG/DL BUN (test code = 2208) 17 MG/DL CREATININE (test code = 2214) 0.84 MG/DL eGFR (2020 CKD-EPI) (test code 88 ML/MIN/1.73 = 28671) CALC BUN/CREAT (test code = 20 RATIO [...] code = 2219) 28 U/L COMPREHENSIVE METABOLIC [id number] 00:00:00 Test Item Value Reference Range Interpretation Comments GLUCOSE (test code = 2217) 108 MG/DL BUN (test code = 2208) 17 MG/DL CREATININE (test code = 2214) 0.84 MG/DL eGFR (2020 CKD-EPI) (test code 88 ML/MIN/1.73 = 83409) CALC BUN/CREAT (test code = 20 RATIO [...] code = 2219) 28 U/L CBC W/AUTO [id number] 00:00:00 Test Item Value Reference Range Interpretation [...] NUCLEATED RBCS (test code = 0.00 K/UL 40837) CBC W/AUTO [id number] 00:00:00 Test Item Value Reference Range Interpretation [...] NUCLEATED RBCS (test code = 0.00 K/UL 36737) COMPREHENSIVE METABOLIC [id number] 00:00:00 Test Item Value Reference Range Interpretation Comments GLUCOSE (test code = 2217) 108 MG/DL BUN (test code = 2208) 17 MG/DL CREATININE (test code = 2214) 0.84 MG/DL eGFR (2020 CKD-EPI) (test code 88 ML/MIN/1.73 = 46198) CALC BUN/CREAT (test code = 20 RATIO [...] code = 2219) 28 U/L CBC W/AUTO [id number] 00:00:00 Test Item Value Reference Range Interpretation [...] NUCLEATED RBCS (test code = 0.00 K/UL 85188) CBC W/AUTO [id number] 00:00:00 Test Item Value Reference Range Interpretation [...] NUCLEATED RBCS (test code = 0.00 K/UL 41047) CBC W/AUTO [id number] 00:00:00 Test Item Value Reference Range Interpretation [...] NUCLEATED RBCS (test code = 0.00 K/UL 64140) COMPREHENSIVE METABOLIC [id number] 00:00:00 Test Item Value Reference Range Interpretation Comments GLUCOSE (test code = 2217) 108 MG/DL BUN (test code = 2208) 17 MG/DL CREATININE (test code = 2214) 0.84 MG/DL eGFR (2020 CKD-EPI) (test code 88 ML/MIN/1.73 = 51709) CALC BUN/CREAT (test code = 20 RATIO [...] code = 2219) 28 U/L COMPREHENSIVE METABOLIC [id number] 00:00:00 Test Item Value Reference Range Interpretation Comments GLUCOSE (test code = 2217) 108 MG/DL BUN (test code = 2208) 17 MG/DL CREATININE (test code = 2214) 0.84 MG/DL eGFR (2020 CKD-EPI) (test code 88 ML/MIN/1.73 = 57080) CALC BUN/CREAT (test code = 20 RATIO [...] code = 2219) 28 U/L CBC W/AUTO [id number] 00:00:00 Test Item Value Reference Range Interpretation [...] NUCLEATED RBCS (test code = 0.00 K/UL 39966) CBC W/AUTO [id number] 00:00:00 Test Item Value Reference Range Interpretation [...] NUCLEATED RBCS (test code = 0.00 K/UL 38084) CBC W/AUTO [id number] 00:00:00 Test Item Value Reference Range Interpretation [...] NUCLEATED RBCS (test code = 0.00 K/UL 43229) COMPREHENSIVE METABOLIC [id number] 00:00:00 Test Item Value Reference Range Interpretation Comments GLUCOSE (test code = 2217) 108 MG/DL BUN (test code = 2208) 17 MG/DL CREATININE (test code = 2214) 0.84 MG/DL eGFR (2020 CKD-EPI) (test code 88 ML/MIN/1.73 = 29426) CALC BUN/CREAT (test code = 20 RATIO [...] code = 2219) 28 U/L COMPREHENSIVE METABOLIC [id number] 00:00:00 Test Item Value Reference Range Interpretation Comments GLUCOSE (test code = 2217) 108 MG/DL BUN (test code = 2208) 17 MG/DL CREATININE (test code = 2214) 0.84 MG/DL eGFR (2020 CKD-EPI) (test code 88 ML/MIN/1.73 = 14141) CALC BUN/CREAT (test code = 20 RATIO [...] code = 2219) 28 U/L CBC W/AUTO [id number] 00:00:00 Test Item Value Reference Range Interpretation [...] NUCLEATED RBCS (test code = 0.00 K/UL 61811) CBC W/AUTO [id number] 00:00:00 Test Item Value Reference Range Interpretation [...] NUCLEATED RBCS (test code = 0.00 K/UL 25260) CBC W/AUTO [id number] 00:00:00 Test Item Value Reference Range Interpretation [...] NUCLEATED RBCS (test code = 0.00 K/UL 50574) COMPREHENSIVE METABOLIC [id number] 00:00:00 Test Item Value Reference Range Interpretation Comments GLUCOSE (test code = 2217) 108 MG/DL BUN (test code = 2208) 17 MG/DL CREATININE (test code = 2214) 0.84 MG/DL eGFR (2020 CKD-EPI) (test code 88 ML/MIN/1.73 = 34081) CALC BUN/CREAT (test code = 20 RATIO [...] ALKALINE PHOSPHATASE (test 51 U/L code = 2203) AST (test code = 2218) 22 U/L ALT (test code = 2219) 28 U/L COMPREHENSIVE METABOLIC [id number] 00:00:00 Test Item Value Reference Range Interpretation Comments GLUCOSE (test code = 2217) 108 MG/DL BUN (test code = 2208) 17 MG/DL CREATININE (test code = 2214) 0.84 MG/DL eGFR (2020 CKD-EPI) (test code 88 ML/MIN/1.73 = 76119) CALC BUN/CREAT (test code = 20 RATIO 5) SODIUM (test code = 2231) 141 MEQ/L [...] = 2219) 28 U/L COMP. METABOLIC PANEL (43667)2021-09-22 15:36:43 Test Item Value Reference Range Interpretation Comments NA (test code = 133 mmol/L 135-145 L 0347391516) K (test code = 4.8 mmol/L 3.5-5.0 7290156510) CL (test code = 96 mmol/L 98-108 L 8041736656) CO2 TOTAL (test code = 21 mmol/L 23-31 L 3568660030) AGAP (test code = 2-16 6546419900) BUN (test code = 30 mg/dL 7-23 H 7661365968) GLUCOSE (test code = 405 mg/dL 70-110 H 4651150608) CREATININE (test code = 0.74 mg/dL 0.50-1.04 8514763419) TOTAL BILI (test code = 0.6 mg/dL 0.1-1.3 7333749195) CALCIUM (test code = 9.7 mg/dL 8.6-10.6 1541519166) T PROTEIN (test code = 7.9 g/dL 6.3-8.2 5444238197) ALBUMIN (test code = 4.9 g/dL 3.5-5.0 8553101154) ALK PHOS (test code = 66 U/L 34-122 9704919588) ALTv (test code = 37 U/L 5-35 H 1742-6) AST(SGOT) (test code = 31 U/L 13-40 6776340458) eGFR (test code = mL/min/1.73m2 2717840358) CALVIN (test code = CALVIN) Association of [...] tests). Lab Interpretation Abnormal (test code = 44543-5) [facility] WITH [id number] 15:26:02 Test Item Value Reference Range Interpretation Comments WBC (test code = See_Comment [Automated 8418-2) message] The sy stem which generated this result transmitted reference range : 4.30 - 11.10 10*3/?L. The reference range was not used to interpret this result as normal/abnormal . RBC (test code = See_Comment [Automated 899-8) message] The sy stem which generated this [...] (test code = 38.2 fL 39.0-49.9 L 43043-9) RDW-CV (test code = 12.9 % 12.0-15.5 788-0) PLT (test code = See_Comment [Automated 777-3) message] The sy stem which generated this result transmitted reference range : 166 - 358 10*3/ ?L. The reference r doretha was not used to interpret this result as normal/abnormal . MPV (test code = 9.8 fL 9.5-12.9 44531-9) NRBC/100 WBC (test See_Comment [Automat ed code = [id number]) message] The system which generated this result transmitted reference range : 0.0 - 10.0 /100 WBCs. The refer ence range was not u sed to interpret th is result as normal/abnormal . NRBC x10^3 (test code <0.01 See_Comment [Auto mated = [id number]) message] The s ystem which generated this result transmitted reference range : 10*3/?L. The reference range was not used to interpret this result as normal/abnormal . GRAN MAT (NEUT) % 50.6 % (test code = 770-8) IMM GRAN % (test code 0.80 % = [id number]) LYMPH % (test code = 37.0 % 736-9) MONO % (test code = 8.5 % 5905-5) EOS % (test code = 2.2 % 713-8) BASO % (test code = 0.9 % 706-2) GRAN MAT x10^3(ANC) 3.86 10*3/uL 1.88-7.09 (test code = [id number]) IMM GRAN x10^3 (test 0.06 10*3/uL 0.00-0.06 code = [id number]) LYMPH x10^3 (test code 2.83 10*3/uL 1.32-3.29 = 731-0) MONO x10^3 (test code 0.65 10*3/uL 0.33-0.92 = 742-7) EOS x10^3 (test code = 0.17 10*3/uL 0.03-0.39 711-2) BASO x10^3 (test code 0.07 10*3/uL 0.01-0.07 = 704-7) Lab Interpretation Abnormal (test code = 73868-7) [facility] [id number] 15:18:00 Test Item Value Reference Range Interpretation Comments POCT PREG (test code = 1605) negative On board controls acceptable with present C Line (test code = 3574) POCT PREG LOT # (test code = 3575) [id number] POCT PREG TEST DATE (test 09/07/2022 code = 3576) Lab Interpretation (test code = Normal 84423-2) [facility] Test Item Value Reference Range Interpretation Comments GLUBED (test code = GLUBED) 260 mg/dL 60-125 H [id number] 06:42:00 Test Item Value Reference Range Interpretation Comments GLUBED (test code = GLUBED) 265 mg/dL 60-125 H COVID 19 Asymptomatic IH [id number] 17:24:00 Test Item Value Reference Range Interpretation Comments COVID 19 Asymptomatic IH AG (test NEGATIVE NEGATIVE code = COVNONPUIAG) COMPREHENSIVE METABOLIC [id number] 05:38:33 Test Item Value Reference Range Interpretation Comments GLUCOSE (test code = 411 MG/DL 70-99 H 2216) BUN (test code = 24 MG/DL 6-20 H 2207) CREATININE (test 1.13 MG/DL 0.60-1.30 code = 2214) eGFR (2020 CKD-EPI) 62 ML/MIN/1.73 >60 (test code = 34623) CALC BUN/CREAT (test 21 RATIO -28 code = 2235) SODIUM (test code = 136 MEQ/L 906-209 9077) POTASSIUM (test code 5.0 MEQ/L 3.5-5.4 = 2227) CHLORIDE (test code 97 MEQ/L 95-107 = 2215) CARBON DIOXIDE (test 20 MEQ/L 19-31 code [...] = 49 U/L 5-40 H 2218) LIPID [id number] 05:38:33 Test Item Value Reference Range Interpretation [...] MOREINFORMATION , SEE CLIENT ANNOUNCE MENT AT [email or web address] CalcLDL-C RISK RATIO LDL/HDL 2.79 RATIO <3.22 UNABLE TO CALCULATE (test code = 8) UNLESS OT HERWISE INDICATED, ALL TESTING PERFORMED [facility] [employer] [address] [place] [address] 4 LABORATORY DIRE CTOR: NOAH TODD M.D. CLIA NUMBER [id number] [place]. [id number] HEMOGLOBIN [id number] 03:55:33 Test Item Value Reference Range Interpretation Comments HEMOGLOBIN A1c (test 11.9 % 4.2-5.6 H [employer] AN DIABETES code = 04531) ASSOCIATION [employer] FOR HGB A1C: PREDIABETES/INC REASED [...] TESTING OR LABORATORY C ONSULTATION. COMPREHENSIVE METABOLIC [id number] 00:00:00 Test Item Value Reference Range Interpretation Comments GLUCOSE (test code = 2217) 411 MG/DL BUN (test code = 2208) 24 MG/DL CREATININE (test code = 2214) 1.13 MG/DL eGFR (2020 CKD-EPI) (test code 62 ML/MIN/1.73 = 70865) CALC BUN/CREAT (test code = 21 RATIO [...] code = 2219) 49 U/L COMPREHENSIVE METABOLIC [id number] 00:00:00 Test Item Value Reference Range Interpretation Comments GLUCOSE (test code = 2217) 411 MG/DL BUN (test code = 2208) 24 MG/DL CREATININE (test code = 2214) 1.13 MG/DL eGFR (2020 CKD-EPI) (test code 62 ML/MIN/1.73 = 85615) CALC BUN/CREAT (test code = 21 RATIO [...] (test code = 2219) 49 U/L HEMOGLOBIN [id number] 00:00:00 Test Item Value Reference Range Interpretation Comments HEMOGLOBIN A1c (test code = 55348) 11.9 % HEMOGLOBIN [id number] 00:00:00 Test Item Value Reference Range Interpretation Comments HEMOGLOBIN A1c (test code = 73806) 11.9 % HEMOGLOBIN [id number] 00:00:00 Test Item Value Reference Range Interpretation Comments HEMOGLOBIN A1c (test code = 05928) 11.9 % LIPID [id number] 00:00:00 Test Item Value Reference Range Interpretation Comments CHOLESTEROL (test code = 2210) 176 MG/DL TRIGLYCERIDES (test code = 2232) 614 MG/DL HDL CHOLESTEROL (test code = 28 MG/DL 2220) CALC LDL CHOL (test code = 2237) (NOTE) MG/DL RISK RATIO LDL/HDL (test code = 2.79 RATIO 2238) LIPID [id number] 00:00:00 Test Item Value Reference Range Interpretation Comments CHOLESTEROL (test code = 2210) 176 MG/DL TRIGLYCERIDES (test code = 2232) 614 MG/DL HDL CHOLESTEROL (test code = 28 MG/DL 2220) CALC LDL CHOL (test code = 2237) (NOTE) MG/DL RISK RATIO LDL/HDL (test code = 2.79 RATIO 2238) COMPREHENSIVE METABOLIC [id number] 00:00:00 Test Item Value Reference Range Interpretation Comments GLUCOSE (test code = 2217) 411 MG/DL BUN (test code = 8) 24 MG/DL CREATININE (test code = 2214) 1.13 MG/DL eGFR (2020 CKD-EPI) (test code 62 ML/MIN/1.73 = 04850) CALC BUN/CREAT (test code = 21 RATIO [...] code = 2219) 49 U/L COMPREHENSIVE METABOLIC [id number] 00:00:00 Test Item Value Reference Range Interpretation Comments GLUCOSE (test code = 2217) 411 MG/DL BUN (test code = 2208) 24 MG/DL CREATININE (test code = 2214) 1.13 MG/DL eGFR (2020 CKD-EPI) (test code 62 ML/MIN/1.73 = 70590) CALC BUN/CREAT (test code = 21 RATIO [...] (test code = 2219) 49 U/L HEMOGLOBIN [id number] 00:00:00 Test Item Value Reference Range Interpretation Comments HEMOGLOBIN A1c (test code = 34491) 11.9 % HEMOGLOBIN [id number] 00:00:00 Test Item Value Reference Range Interpretation Comments HEMOGLOBIN A1c (test code = 74648) 11.9 % HEMOGLOBIN [id number] 00:00:00 Test Item Value Reference Range Interpretation Comments HEMOGLOBIN A1c (test code = 85769) 11.9 % LIPID [id number] 00:00:00 Test Item Value Reference Range Interpretation Comments CHOLESTEROL (test code = 2210) 176 MG/DL TRIGLYCERIDES (test code = 2232) 614 MG/DL HDL CHOLESTEROL (test code = 28 MG/DL 2220) CALC LDL CHOL (test code = 2237) (NOTE) MG/DL RISK RATIO LDL/HDL (test code = 2.79 RATIO 2238) LIPID [id number] 00:00:00 Test Item Value Reference Range Interpretation Comments CHOLESTEROL (test code = 2210) 176 MG/DL TRIGLYCERIDES (test code = 2232) 614 MG/DL HDL CHOLESTEROL (test code = 28 MG/DL 2220) CALC LDL CHOL (test code = 2237) (NOTE) MG/DL RISK RATIO LDL/HDL (test code = 2.79 RATIO 2238) COMPREHENSIVE METABOLIC [id number] 00:00:00 Test Item Value Reference Range Interpretation Comments GLUCOSE (test code = 2217) 411 MG/DL BUN (test code = 2208) 24 MG/DL CREATININE (test code = 2214) 1.13 MG/DL eGFR (2020 CKD-EPI) (test code 62 ML/MIN/1.73 = 26964) CALC BUN/CREAT (test code = 21 RATIO [...] code = 2219) 49 U/L COMPREHENSIVE METABOLIC [id number] 00:00:00 Test Item Value Reference Range Interpretation Comments GLUCOSE (test code = 2217) 411 MG/DL BUN (test code = 2208) 24 MG/DL CREATININE (test code = 2214) 1.13 MG/DL eGFR (2020 CKD-EPI) (test code 62 ML/MIN/1.73 = 21532) CALC BUN/CREAT (test code = 21 RATIO [...] (test code = 2219) 49 U/L HEMOGLOBIN [id number] 00:00:00 Test Item Value Reference Range Interpretation Comments HEMOGLOBIN A1c (test code = 63081) 11.9 % HEMOGLOBIN [id number] 00:00:00 Test Item Value Reference Range Interpretation Comments HEMOGLOBIN A1c (test code = 22518) 11.9 % HEMOGLOBIN [id number] 00:00:00 Test Item Value Reference Range Interpretation Comments HEMOGLOBIN A1c (test code = 87972) 11.9 % LIPID [id number] 00:00:00 Test Item Value Reference Range Interpretation Comments CHOLESTEROL (test code = 2210) 176 MG/DL TRIGLYCERIDES (test code = 2232) 614 MG/DL HDL CHOLESTEROL (test code = 28 MG/DL 2219) CALC LDL CHOL (test code = 2237) (NOTE) MG/DL RISK RATIO LDL/HDL (test code = 2.79 RATIO 2238) LIPID [id number] 00:00:00 Test Item Value Reference Range Interpretation Comments CHOLESTEROL (test code = 2210) 176 MG/DL TRIGLYCERIDES (test code = 2232) 614 MG/DL HDL CHOLESTEROL (test code = 28 MG/DL 0) CALC LDL CHOL (test code = 2237) (NOTE) MG/DL RISK RATIO LDL/HDL (test code = 2.79 RATIO 2238) COMPREHENSIVE METABOLIC [id number] 00:00:00 Test Item Value Reference Range Interpretation Comments GLUCOSE (test code = 2217) 411 MG/DL BUN (test code = 2208) 24 MG/DL CREATININE (test code = 2214) 1.13 MG/DL eGFR (2020 CKD-EPI) (test code 62 ML/MIN/1.73 = 69920) CALC BUN/CREAT (test code = 21 RATIO [...] code = 2219) 49 U/L COMPREHENSIVE METABOLIC [id number] 00:00:00 Test Item Value Reference Range Interpretation Comments GLUCOSE (test code = 2217) 411 MG/DL BUN (test code = 2208) 24 MG/DL CREATININE (test code = 2214) 1.13 MG/DL eGFR (2020 CKD-EPI) (test code 62 ML/MIN/1.73 = 44636) CALC BUN/CREAT (test code = 21 RATIO [...] (test code = 2219) 49 U/L HEMOGLOBIN [id number] 00:00:00 Test Item Value Reference Range Interpretation Comments HEMOGLOBIN A1c (test code = 75035) 11.9 % HEMOGLOBIN [id number] 00:00:00 Test Item Value Reference Range Interpretation Comments HEMOGLOBIN A1c (test code = 03214) 11.9 % HEMOGLOBIN [id number] 00:00:00 Test Item Value Reference Range Interpretation Comments HEMOGLOBIN A1c (test code = 79966) 11.9 % LIPID [id number] 00:00:00 Test Item Value Reference Range Interpretation Comments CHOLESTEROL (test code = 2210) 176 MG/DL TRIGLYCERIDES (test code = 2232) 614 MG/DL HDL CHOLESTEROL (test code = 28 MG/DL 2220) CALC LDL CHOL (test code = 2237) (NOTE) MG/DL RISK RATIO LDL/HDL (test code = 2.79 RATIO 2238) LIPID [id number] 00:00:00 Test Item Value Reference Range Interpretation Comments CHOLESTEROL (test code = 2210) 176 MG/DL TRIGLYCERIDES (test code = 2232) 614 MG/DL HDL CHOLESTEROL (test code = 28 MG/DL 2220) CALC LDL CHOL (test code = 2237) (NOTE) MG/DL RISK RATIO LDL/HDL (test code = 2.79 RATIO 2238) COMPREHENSIVE METABOLIC [id number] 00:00:00 Test Item Value Reference Range Interpretation Comments GLUCOSE (test code = 2217) 411 MG/DL BUN (test code = 2208) 24 MG/DL CREATININE (test code = 2214) 1.13 MG/DL eGFR (2020 CKD-EPI) (test code 62 ML/MIN/1.73 = 72099) CALC BUN/CREAT (test code = 21 RATIO [...] code = 2219) 49 U/L COMPREHENSIVE METABOLIC [id number] 00:00:00 Test Item Value Reference Range Interpretation Comments GLUCOSE (test code = 2217) 411 MG/DL BUN (test code = 2208) 24 MG/DL CREATININE (test code = 2214) 1.13 MG/DL eGFR (2020 CKD-EPI) (test code 62 ML/MIN/1.73 = 93813) CALC BUN/CREAT (test code = 21 RATIO [...] (test code = 2219) 49 U/L HEMOGLOBIN [id number] 00:00:00 Test Item Value Reference Range Interpretation Comments HEMOGLOBIN A1c (test code = 78529) 11.9 % HEMOGLOBIN [id number] 00:00:00 Test Item Value Reference Range Interpretation Comments HEMOGLOBIN A1c (test code = 33948) 11.9 % HEMOGLOBIN [id number] 00:00:00 Test Item Value Reference Range Interpretation Comments HEMOGLOBIN A1c (test code = 02231) 11.9 % LIPID [id number] 00:00:00 Test Item Value Reference Range Interpretation Comments CHOLESTEROL (test code = 2210) 176 MG/DL TRIGLYCERIDES (test code = 2232) 614 MG/DL HDL CHOLESTEROL (test code = 28 MG/DL 2220) CALC LDL CHOL (test code = 2237) (NOTE) MG/DL RISK RATIO LDL/HDL (test code = 2.79 RATIO 2238) LIPID [id number] 00:00:00 Test Item Value Reference Range Interpretation Comments CHOLESTEROL (test code = 2210) 176 MG/DL TRIGLYCERIDES (test code = 2232) 614 MG/DL HDL CHOLESTEROL (test code = 28 MG/DL 2220) CALC LDL CHOL (test code = 2237) (NOTE) MG/DL RISK RATIO LDL/HDL (test code = 2.79 RATIO 2238) COMPREHENSIVE METABOLIC [id number] 00:00:00 Test Item Value Reference Range Interpretation Comments GLUCOSE (test code = 2217) 411 MG/DL BUN (test code = 2208) 24 MG/DL CREATININE (test code = 2214) 1.13 MG/DL eGFR (2020 CKD-EPI) (test code 62 ML/MIN/1.73 = 18985) CALC BUN/CREAT (test code = 21 RATIO [...] code = 2219) 49 U/L COMPREHENSIVE METABOLIC [id number] 00:00:00 Test Item Value Reference Range Interpretation Comments GLUCOSE (test code = 2217) 411 MG/DL BUN (test code = 2208) 24 MG/DL CREATININE (test code = 2214) 1.13 MG/DL eGFR (2020 CKD-EPI) (test code 62 ML/MIN/1.73 = 43906) CALC BUN/CREAT (test code = 21 RATIO [...] (test code = 2219) 49 U/L HEMOGLOBIN [id number] 00:00:00 Test Item Value Reference Range Interpretation Comments HEMOGLOBIN A1c (test code = 23573) 11.9 % HEMOGLOBIN [id number] 00:00:00 Test Item Value Reference Range Interpretation Comments HEMOGLOBIN A1c (test code = 45897) 11.9 % HEMOGLOBIN [id number] 00:00:00 Test Item Value Reference Range Interpretation Comments HEMOGLOBIN A1c (test code = 03096) 11.9 % LIPID [id number] 00:00:00 Test Item Value Reference Range Interpretation Comments CHOLESTEROL (test code = 2210) 176 MG/DL TRIGLYCERIDES (test code = 2232) 614 MG/DL HDL CHOLESTEROL (test code = 28 MG/DL 2219) CALC LDL CHOL (test code = 223) (NOTE) MG/DL RISK RATIO LDL/HDL (test code = 2.79 RATIO 8) LIPID [id number] 00:00:00 Test Item Value Reference Range Interpretation Comments CHOLESTEROL (test code = 2210) 176 MG/DL TRIGLYCERIDES (test code = 2232) 614 MG/DL HDL CHOLESTEROL (test code = 28 MG/DL 0) CALC LDL CHOL (test code = 2237) (NOTE) MG/DL RISK RATIO LDL/HDL (test code = 2.79 RATIO 2238) COMPREHENSIVE METABOLIC [id number] 00:00:00 Test Item Value Reference Range Interpretation Comments GLUCOSE (test code = 2217) 411 MG/DL BUN (test code = 2208) 24 MG/DL CREATININE (test code = 2214) 1.13 MG/DL eGFR (2020 CKD-EPI) (test code 62 ML/MIN/1.73 = 62377) CALC BUN/CREAT (test code = 21 RATIO [...] code = 2219) 49 U/L COMPREHENSIVE METABOLIC [id number] 00:00:00 Test Item Value Reference Range Interpretation Comments GLUCOSE (test code = 2217) 411 MG/DL BUN (test code = 2208) 24 MG/DL CREATININE (test code = 2214) 1.13 MG/DL eGFR (2020 CKD-EPI) (test code 62 ML/MIN/1.73 = 00179) CALC BUN/CREAT (test code = 21 RATIO [...] (test code = 2219) 49 U/L HEMOGLOBIN [id number] 00:00:00 Test Item Value Reference Range Interpretation Comments HEMOGLOBIN A1c (test code = 90257) 11.9 % HEMOGLOBIN [id number] 00:00:00 Test Item Value Reference Range Interpretation Comments HEMOGLOBIN A1c (test code = 29597) 11.9 % HEMOGLOBIN [id number] 00:00:00 Test Item Value Reference Range Interpretation Comments HEMOGLOBIN A1c (test code = 05860) 11.9 % LIPID [id number] 00:00:00 Test Item Value Reference Range Interpretation Comments CHOLESTEROL (test code = 2210) 176 MG/DL TRIGLYCERIDES (test code = 2232) 614 MG/DL HDL CHOLESTEROL (test code = 28 MG/DL 2220) CALC LDL CHOL (test code = 2237) (NOTE) MG/DL RISK RATIO LDL/HDL (test code = 2.79 RATIO 2238) LIPID [id number] 00:00:00 Test Item Value Reference Range Interpretation Comments CHOLESTEROL (test code = 2210) 176 MG/DL TRIGLYCERIDES (test code = 2232) 614 MG/DL HDL CHOLESTEROL (test code = 28 MG/DL 2220) CALC LDL CHOL (test code = 2237) (NOTE) MG/DL RISK RATIO LDL/HDL (test code = 2.79 RATIO 2238) COMPREHENSIVE METABOLIC [id number] 00:00:00 Test Item Value Reference Range Interpretation Comments GLUCOSE (test code = 2217) 411 MG/DL BUN (test code = 2208) 24 MG/DL CREATININE (test code = 2214) 1.13 MG/DL eGFR (2020 CKD-EPI) (test code 62 ML/MIN/1.73 = 06675) CALC BUN/CREAT (test code = 21 RATIO [...] (test code = 2219) 49 U/L HEMOGLOBIN [id number] 00:00:00 Test Item Value Reference Range Interpretation Comments HEMOGLOBIN A1c (test code = 28917) 11.9 % HEMOGLOBIN [id number] 00:00:00 Test Item Value Reference Range Interpretation Comments HEMOGLOBIN A1c (test code = 11789) 11.9 % LIPID [id number] 00:00:00 Test Item Value Reference Range Interpretation Comments CHOLESTEROL (test code = 2210) 176 MG/DL TRIGLYCERIDES (test code = 2232) 614 MG/DL HDL CHOLESTEROL (test code = 28 MG/DL 0) CALC LDL CHOL (test code = 2237) (NOTE) MG/DL RISK RATIO LDL/HDL (test code = 2.79 RATIO 2238) COMPREHENSIVE METABOLIC [id number] 00:00:00 Test Item Value Reference Range Interpretation Comments GLUCOSE (test code = 2217) 411 MG/DL BUN (test code = 2208) 24 MG/DL CREATININE (test code = 2214) 1.13 MG/DL eGFR (2020 CKD-EPI) (test code 62 ML/MIN/1.73 = 65002) CALC BUN/CREAT (test code = 21 RATIO [...] code = 2219) 49 U/L COMPREHENSIVE METABOLIC [id number] 00:00:00 Test Item Value Reference Range Interpretation Comments GLUCOSE (test code = 2217) 411 MG/DL BUN (test code = 2208) 24 MG/DL CREATININE (test code = 2214) 1.13 MG/DL eGFR (2020 CKD-EPI) (test code 62 ML/MIN/1.73 = 40692) CALC BUN/CREAT (test code = 21 RATIO [...] (test code = 2219) 49 U/L HEMOGLOBIN [id number] 00:00:00 Test Item Value Reference Range Interpretation Comments HEMOGLOBIN A1c (test code = 60189) 11.9 % HEMOGLOBIN [id number] 00:00:00 Test Item Value Reference Range Interpretation Comments HEMOGLOBIN A1c (test code = 76573) 11.9 % HEMOGLOBIN [id number] 00:00:00 Test Item Value Reference Range Interpretation Comments HEMOGLOBIN A1c (test code = 84697) 11.9 % LIPID [id number] 00:00:00 Test Item Value Reference Range Interpretation Comments CHOLESTEROL (test code = 2210) 176 MG/DL TRIGLYCERIDES (test code = 2232) 614 MG/DL HDL CHOLESTEROL (test code = 28 MG/DL 2219) CALC LDL CHOL (test code = 2237) (NOTE) MG/DL RISK RATIO LDL/HDL (test code = 2.79 RATIO 2238) LIPID [id number] 00:00:00 Test Item Value Reference Range Interpretation Comments CHOLESTEROL (test code = 2210) 176 MG/DL TRIGLYCERIDES (test code = 2232) 614 MG/DL HDL CHOLESTEROL (test code = 28 MG/DL 2220) CALC LDL CHOL (test code = 2237) (NOTE) MG/DL RISK RATIO LDL/HDL (test code = 2.79 RATIO 2238) COMPREHENSIVE METABOLIC [id number] 00:00:00 Test Item Value Reference Range Interpretation Comments GLUCOSE (test code = 2217) 411 MG/DL BUN (test code = 2208) 24 MG/DL CREATININE (test code = 2214) 1.13 MG/DL eGFR (2020 CKD-EPI) (test code 62 ML/MIN/1.73 = 73358) CALC BUN/CREAT (test code = 21 RATIO [...] code = 2219) 49 U/L COMPREHENSIVE METABOLIC [id number] 00:00:00 Test Item Value Reference Range Interpretation Comments GLUCOSE (test code = 2217) 411 MG/DL BUN (test code = 2208) 24 MG/DL CREATININE (test code = 2214) 1.13 MG/DL eGFR (2020 CKD-EPI) (test code 62 ML/MIN/1.73 = 38680) CALC BUN/CREAT (test code = 21 RATIO [...] (test code = 2219) 49 U/L HEMOGLOBIN [id number] 00:00:00 Test Item Value Reference Range Interpretation Comments HEMOGLOBIN A1c (test code = 14895) 11.9 % HEMOGLOBIN [id number] 00:00:00 Test Item Value Reference Range Interpretation Comments HEMOGLOBIN A1c (test code = 91135) 11.9 % HEMOGLOBIN [id number] 00:00:00 Test Item Value Reference Range Interpretation Comments HEMOGLOBIN A1c (test code = 81955) 11.9 % LIPID [id number] 00:00:00 Test Item Value Reference Range Interpretation Comments CHOLESTEROL (test code = 2210) 176 MG/DL TRIGLYCERIDES (test code = 2232) 614 MG/DL HDL CHOLESTEROL (test code = 28 MG/DL 0) CALC LDL CHOL (test code = 2237) (NOTE) MG/DL RISK RATIO LDL/HDL (test code = 2.79 RATIO 2238) LIPID [id number] 00:00:00 Test Item Value Reference Range Interpretation Comments CHOLESTEROL (test code = 2210) 176 MG/DL TRIGLYCERIDES (test code = 2232) 614 MG/DL HDL CHOLESTEROL (test code = 28 MG/DL 2220) CALC LDL CHOL (test code = 2237) (NOTE) MG/DL RISK RATIO LDL/HDL (test code = 2.79 RATIO 2238) COMPREHENSIVE METABOLIC [id number] 00:00:00 Test Item Value Reference Range Interpretation Comments GLUCOSE (test code = 2217) 411 MG/DL BUN (test code = 2208) 24 MG/DL CREATININE (test code = 2214) 1.13 MG/DL eGFR (2020 CKD-EPI) (test code 62 ML/MIN/1.73 = 62641) CALC BUN/CREAT (test code = 21 RATIO [...] code = 2219) 49 U/L COMPREHENSIVE METABOLIC [id number] 00:00:00 Test Item Value Reference Range Interpretation Comments GLUCOSE (test code = 2217) 411 MG/DL BUN (test code = 2208) 24 MG/DL CREATININE (test code = 2214) 1.13 MG/DL eGFR (2020 CKD-EPI) (test code 62 ML/MIN/1.73 = 95040) CALC BUN/CREAT (test code = 21 RATIO [...] (test code = 2219) 49 U/L HEMOGLOBIN [id number] 00:00:00 Test Item Value Reference Range Interpretation Comments HEMOGLOBIN A1c (test code = 53175) 11.9 % HEMOGLOBIN [id number] 00:00:00 Test Item Value Reference Range Interpretation Comments HEMOGLOBIN A1c (test code = 00841) 11.9 % HEMOGLOBIN [id number] 00:00:00 Test Item Value Reference Range Interpretation Comments HEMOGLOBIN A1c (test code = 51818) 11.9 % LIPID [id number] 00:00:00 Test Item Value Reference Range Interpretation Comments CHOLESTEROL (test code = 2210) 176 MG/DL TRIGLYCERIDES (test code = 2232) 614 MG/DL HDL CHOLESTEROL (test code = 28 MG/DL 2220) CALC LDL CHOL (test code = 2237) (NOTE) MG/DL RISK RATIO LDL/HDL (test code = 2.79 RATIO 2238) LIPID [id number] 00:00:00 Test Item Value Reference Range Interpretation Comments CHOLESTEROL (test code = 2210) 176 MG/DL TRIGLYCERIDES (test code = 2232) 614 MG/DL HDL CHOLESTEROL (test code = 28 MG/DL 2220) CALC LDL CHOL (test code = 2237) (NOTE) MG/DL RISK RATIO LDL/HDL (test code = 2.79 RATIO 2238) CREATINE [id number] 13:35:13 Test Item Value Reference Range Interpretation Comments CK (test code = 4311426132) 71 U/L 33-194 Lab Interpretation (test code = Normal 79996-9) [facility] GLUCOSE (AUTOMATED)2021-06-18 13:07:35 Test Item Value Reference Range Interpretation Comments POCT GLU (test code = 3312131406) 351 mg/dL 70-110 H Lab Interpretation (test code = Abnormal 43562-4) [facility] GLUCOSE(AGE >30DAYS)2021-06-18 13:04:00 Test Item Value Reference Range Interpretation Comments POCT Glu (age>30days) (test code = 351 mg/dL 70-110 A 3342) Lab Interpretation (test code = Abnormal 11720-1) [facility]. Metabolic Panel (13857)2021-06-18 11:14:20 Test Item Value Reference Range Interpretation Comments NA (test code = 134 mmol/L 135-145 L 9677221412) K (test code = 4.6 mmol/L 3.5-5.0 8896206247) CL (test code = 103 mmol/L 98-108 5152246168) CO2 TOTAL (test code = 18 mmol/L 23-31 L 3100845206) AGAP (test code = 2-16 1308429755) BUN (test code = 30 mg/dL 7-23 H 1511235706) GLUCOSE (test code = 390 mg/dL 70-110 H 8877340929) CREATININE (test code = 0.93 mg/dL 0.50-1.04 4914734706) TOTAL BILI (test code = 0.4 mg/dL 0.1-1.1 2241421171) CALCIUM (test code = 10.0 mg/dL 8.6-10.6 1889245863) T PROTEIN (test code = 7.6 g/dL 6.3-8.2 0329371112) ALBUMIN (test code = 4.5 g/dL 3.5-5.0 9375579587) ALK PHOS (test code = 51 U/L 34-122 7043690351) ALTv (test code = 34 U/L 5-35 1742-6) AST(SGOT) (test code = 26 U/L 13-40 2100255597) eGFR (test code = mL/min/1.73m2 9116216904) CALVIN (test code = CALVIN) Association of [...] tests). Lab Interpretation Abnormal (test code = 32952-2) [id number]:06:[facility] Test Item Value Reference Range Interpretation Comments POCT PREG (test code = 1605) neg On board controls acceptable with yes C Line (test code = 3574) POCT PREG LOT # (test code = 3575) [id number] POCT PREG TEST DATE (test 08/10/2022 code = 3576) Lab Interpretation (test code = Normal 15786-6) [facility] [id number] 11:00:39 Test Item Value Reference Range Interpretation Comments WBC (test code = See_Comment [Automated 6695-2) message] The sy stem which generated this result transmitted reference range : 4.30 - 11.10 10*3/?L. The reference range was not used to interpret this result as normal/abnormal . RBC (test code = See_Comment [Automated 151-8) message] The sy stem which generated this [...] RDW-SD (test code = 40.1 fL 39.0-49.9 84461-7) RDW-CV (test code = 13.2 % 12.0-15.5 788-0) PLT (test code = See_Comment [Automated 777-3) message] The sy stem which generated this result transmitted reference range : 166 - 358 10*3/ ?L. The reference r doretha was not used to interpret this result as normal/abnormal . MPV (test code = 9.5 fL 9.5-12.9 83425-5) NRBC/100 WBC (test See_Comment [Automat ed code = [id number]) message] The system which generated this result transmitted reference range : 0.0 - 10.0 /100 WBCs. The refer ence range was not u sed to interpret th is result as normal/abnormal . NRBC x10^3 (test code <0.01 See_Comment [Auto mated = [id number]) message] The s ystem which generated this result transmitted reference range : 10*3/?L. The reference range was not used to interpret this result as normal/abnormal . GRAN MAT (NEUT) % 43.7 % (test code = 770-8) IMM GRAN % (test code 0.70 % = [id number]) LYMPH % (test code = 41.9 % 736-9) MONO % (test code = 8.8 % 5905-5) EOS % (test code = 3.6 % 713-8) BASO % (test code = 1.3 % 706-2) GRAN MAT x10^3(ANC) 2.68 10*3/uL 1.88-7.09 (test code = [id number]) IMM GRAN x10^3 (test 0.04 10*3/uL 0.00-0.06 code = [id number]) LYMPH x10^3 (test code 2.57 10*3/uL 1.32-3.29 = 731-0) MONO x10^3 (test code 0.54 10*3/uL 0.33-0.92 = 742-7) EOS x10^3 (test code = 0.22 10*3/uL 0.03-0.39 711-2) BASO x10^3 (test code 0.08 10*3/uL 0.01-0.07 H = 704-7) Lab Interpretation Abnormal (test code = 17954-1) [facility] [id number] 00:00:00 Test Item Value Reference Range Interpretation Comments ANDIE SPECIES (test code = 24115) NEGATIVE G. VAGINALIS (test code = 34433) NEGATIVE T. VAGINALIS (test code = 18570) NEGATIVE VAGINAL PATHOGENS DNA [id number] 00:00:00 Test Item Value Reference Range Interpretation Comments ANDIE SPECIES (test code = 82058) NEGATIVE G. VAGINALIS (test code = 12393) NEGATIVE T. VAGINALIS (test code = 04479) NEGATIVE VAGINAL PATHOGENS DNA [id number] 00:00:00 Test Item Value Reference Range Interpretation Comments ANDIE SPECIES (test code = 42779) NEGATIVE G. VAGINALIS (test code = 76847) NEGATIVE T. VAGINALIS (test code = 09473) NEGATIVE VAGINAL PATHOGENS DNA [id number] 00:00:00 Test Item Value Reference Range Interpretation Comments ANDIE SPECIES (test code = 47072) NEGATIVE G. VAGINALIS (test code = 79189) NEGATIVE T. VAGINALIS (test code = 02454) NEGATIVE VAGINAL PATHOGENS DNA [id number] 00:00:00 Test Item Value Reference Range Interpretation Comments ANDIE SPECIES (test code = 46264) NEGATIVE G. VAGINALIS (test code = 83232) NEGATIVE T. VAGINALIS (test code = 94847) NEGATIVE VAGINAL PATHOGENS DNA [id number] 00:00:00 Test Item Value Reference Range Interpretation Comments ANDIE SPECIES (test code = 04850) NEGATIVE G. VAGINALIS (test code = 25442) NEGATIVE T. VAGINALIS (test code = 98533) NEGATIVE VAGINAL PATHOGENS DNA [id number] 00:00:00 Test Item Value Reference Range Interpretation Comments ANDIE SPECIES (test code = 87094) NEGATIVE G. VAGINALIS (test code = 67705) NEGATIVE T. VAGINALIS (test code = 56021) NEGATIVE VAGINAL PATHOGENS DNA [id number] 00:00:00 Test Item Value Reference Range Interpretation Comments ANDIE SPECIES (test code = 41089) NEGATIVE G. VAGINALIS (test code = 08424) NEGATIVE T. VAGINALIS (test code = 57561) NEGATIVE VAGINAL PATHOGENS DNA [id number] 00:00:00 Test Item Value Reference Range Interpretation Comments ANDIE SPECIES (test code = 91237) NEGATIVE G. VAGINALIS (test code = 98498) NEGATIVE T. VAGINALIS (test code = 27981) NEGATIVE VAGINAL PATHOGENS DNA [id number] 00:00:00 Test Item Value Reference Range Interpretation Comments ANDIE SPECIES (test code = 00689) NEGATIVE G. VAGINALIS (test code = 83574) NEGATIVE T. VAGINALIS (test code = 48849) NEGATIVE VAGINAL PATHOGENS DNA [id number] 00:00:00 Test Item Value Reference Range Interpretation Comments ANDIE SPECIES (test code = 15390) NEGATIVE G. VAGINALIS (test code = 60804) NEGATIVE T. VAGINALIS (test code = 49068) NEGATIVE VAGINAL PATHOGENS DNA [id number] 00:00:00 Test Item Value Reference Range Interpretation Comments ANDIE SPECIES (test code = 15830) NEGATIVE G. VAGINALIS (test code = 94555) NEGATIVE T. VAGINALIS (test code = 58649) NEGATIVE VAGINAL PATHOGENS DNA [id number] 00:00:00 Test Item Value Reference Range Interpretation Comments ANDIE SPECIES (test code = 10715) NEGATIVE G. VAGINALIS (test code = 95304) NEGATIVE T. VAGINALIS (test code = 08013) NEGATIVE VAGINAL PATHOGENS DNA [id number] 00:00:00 Test Item Value Reference Range Interpretation Comments ANDIE SPECIES (test code = 36196) NEGATIVE G. VAGINALIS (test code = 08738) NEGATIVE T. VAGINALIS (test code = 79691) NEGATIVE VAGINAL PATHOGENS DNA [id number] 00:00:00 Test Item Value Reference Range Interpretation Comments ANDIE SPECIES (test code = 73556) NEGATIVE G. VAGINALIS (test code = 80070) NEGATIVE T. VAGINALIS (test code = 32952) NEGATIVE VAGINAL PATHOGENS DNA [id number] 00:00:00 Test Item Value Reference Range Interpretation Comments ANDIE SPECIES (test code = 07347) NEGATIVE G. VAGINALIS (test code = 77466) NEGATIVE T. VAGINALIS (test code = 49997) NEGATIVE VAGINAL PATHOGENS DNA [id number] 00:00:00 Test Item Value Reference Range Interpretation Comments ANDIE SPECIES (test code = 97174) NEGATIVE G. VAGINALIS (test code = 05416) NEGATIVE T. VAGINALIS (test code = 45308) NEGATIVE VAGINAL PATHOGENS DNA [id number] 00:00:00 Test Item Value Reference Range Interpretation Comments ANDIE SPECIES (test code = 49584) NEGATIVE G. VAGINALIS (test code = 51623) NEGATIVE T. VAGINALIS (test code = 03993) NEGATIVE VAGINAL PATHOGENS DNA [id number] 00:00:00 Test Item Value Reference Range Interpretation Comments ANDIE SPECIES (test code = 96495) NEGATIVE G. VAGINALIS (test code = 38021) NEGATIVE T. VAGINALIS (test code = 56265) NEGATIVE VAGINAL PATHOGENS DNA [id number] 00:00:00 Test Item Value Reference Range Interpretation Comments ANDIE SPECIES (test code = 89890) NEGATIVE G. VAGINALIS (test code = 50609) NEGATIVE T. VAGINALIS (test code = 50679) NEGATIVE VAGINAL PATHOGENS DNA [id number] 00:00:00 Test Item Value Reference Range Interpretation Comments ANDIE SPECIES (test code = 95761) NEGATIVE G. VAGINALIS (test code = 49378) NEGATIVE T. VAGINALIS (test code = 79457) NEGATIVE SARS-CoV-2 (COVID-19) by RT-PCR (HIGH RISK)2021-02-26 00:00:00 Test Item Value Reference Range Interpretation Comments SARS-CoV-2 INTERPRETATION (test NEGATIVE code = 99629) SOURCE (test code = 21871) NOT SPECIFIED SARS-CoV-2 (COVID-19) by RT-PCR (HIGH RISK)2021-02-26 00:00:00 Test Item Value Reference Range Interpretation Comments SARS-CoV-2 INTERPRETATION (test NEGATIVE code = 99739) SOURCE (test code = 18781) NOT SPECIFIED SARS-CoV-2 (COVID-19) by RT-PCR (HIGH RISK)2021-02-26 00:00:00 Test Item Value Reference Range Interpretation Comments SARS-CoV-2 INTERPRETATION (test NEGATIVE code = 99419) SOURCE (test code = 88269) NOT SPECIFIED SARS-CoV-2 (COVID-19) by RT-PCR (HIGH RISK)2021-02-26 00:00:00 Test Item Value Reference Range Interpretation Comments SARS-CoV-2 INTERPRETATION (test NEGATIVE code = 73169) SOURCE (test code = 12048) NOT SPECIFIED SARS-CoV-2 (COVID-19) by RT-PCR (HIGH RISK)2021-02-26 00:00:00 Test Item Value Reference Range Interpretation Comments SARS-CoV-2 INTERPRETATION (test NEGATIVE code = 66542) SOURCE (test code = 59358) NOT SPECIFIED SARS-CoV-2 (COVID-19) by RT-PCR (HIGH RISK)2021-02-26 00:00:00 Test Item Value Reference Range Interpretation Comments SARS-CoV-2 INTERPRETATION (test NEGATIVE code = 63520) SOURCE (test code = 03850) NOT SPECIFIED SARS-CoV-2 (COVID-19) by RT-PCR (HIGH RISK)2021-02-26 00:00:00 Test Item Value Reference Range Interpretation Comments SARS-CoV-2 INTERPRETATION (test NEGATIVE code = 76919) SOURCE (test code = 85454) NOT SPECIFIED SARS-CoV-2 (COVID-19) by RT-PCR (HIGH RISK)2021-02-26 00:00:00 Test Item Value Reference Range Interpretation Comments SARS-CoV-2 INTERPRETATION (test NEGATIVE code = 31615) SOURCE (test code = 13446) NOT SPECIFIED SARS-CoV-2 (COVID-19) by RT-PCR (HIGH RISK)2021-02-26 00:00:00 Test Item Value Reference Range Interpretation Comments SARS-CoV-2 INTERPRETATION (test NEGATIVE code = 88365) SOURCE (test code = 94607) NOT SPECIFIED SARS-CoV-2 (COVID-19) by RT-PCR (HIGH RISK)2021-02-26 00:00:00 Test Item Value Reference Range Interpretation Comments SARS-CoV-2 INTERPRETATION (test NEGATIVE code = 65964) SOURCE (test code = 78251) NOT SPECIFIED SARS-CoV-2 (COVID-19) by RT-PCR (HIGH RISK)2021-02-26 00:00:00 Test Item Value Reference Range Interpretation Comments SARS-CoV-2 INTERPRETATION (test NEGATIVE code = 86092) SOURCE (test code = 57004) NOT SPECIFIED SARS-CoV-2 (COVID-19) by RT-PCR (HIGH RISK)2021-02-26 00:00:00 Test Item Value Reference Range Interpretation Comments SARS-CoV-2 INTERPRETATION (test NEGATIVE code = 01545) SOURCE (test code = 21955) NOT SPECIFIED SARS-CoV-2 (COVID-19) by RT-PCR (HIGH RISK)2021-02-26 00:00:00 Test Item Value Reference Range Interpretation Comments SARS-CoV-2 INTERPRETATION (test NEGATIVE code = 23796) SOURCE (test code = 01698) NOT SPECIFIED SARS-CoV-2 (COVID-19) by RT-PCR (HIGH RISK)2021-02-26 00:00:00 Test Item Value Reference Range Interpretation Comments SARS-CoV-2 INTERPRETATION (test NEGATIVE code = 27503) SOURCE (test code = 72631) NOT SPECIFIED SARS-CoV-2 (COVID-19) by RT-PCR (HIGH RISK)2021-02-26 00:00:00 Test Item Value Reference Range Interpretation Comments SARS-CoV-2 INTERPRETATION (test NEGATIVE code = 59977) SOURCE (test code = 93850) NOT SPECIFIED SARS-CoV-2 (COVID-19) by RT-PCR (HIGH RISK)2021-02-26 00:00:00 Test Item Value Reference Range Interpretation Comments SARS-CoV-2 INTERPRETATION (test NEGATIVE code = 39442) SOURCE (test code = 10582) NOT SPECIFIED SARS-CoV-2 (COVID-19) by RT-PCR (HIGH RISK)2021-02-26 00:00:00 Test Item Value Reference Range Interpretation Comments SARS-CoV-2 INTERPRETATION (test NEGATIVE code = 70885) SOURCE (test code = 96040) NOT SPECIFIED SARS-CoV-2 (COVID-19) by RT-PCR (HIGH RISK)2021-02-26 00:00:00 Test Item Value Reference Range Interpretation Comments SARS-CoV-2 INTERPRETATION (test NEGATIVE code = 21043) SOURCE (test code = 14339) NOT SPECIFIED SARS-CoV-2 (COVID-19) by RT-PCR (HIGH RISK)2021-02-26 00:00:00 Test Item Value Reference Range Interpretation Comments SARS-CoV-2 INTERPRETATION (test NEGATIVE code = 57291) SOURCE (test code = 36079) NOT SPECIFIED SARS-CoV-2 (COVID-19) by RT-PCR (HIGH RISK)2021-02-26 00:00:00 Test Item Value Reference Range Interpretation Comments SARS-CoV-2 INTERPRETATION (test NEGATIVE code = 91093) SOURCE (test code = 23497) NOT SPECIFIED SARS-CoV-2 (COVID-19) by RT-PCR (HIGH RISK)2021-02-26 00:00:00 Test Item Value Reference Range Interpretation Comments SARS-CoV-2 INTERPRETATION (test NEGATIVE code = 79391) SOURCE (test code = 68499) NOT SPECIFIED CULTURE, URINE [ADDED]2021-02-13 00:00:00 Test Item Value Reference Range Interpretation Comments CULTURE, URINE (test SPECIMEN NUMBER: code = 07818) [id number] CULTURE, URINE [ADDED]2021-02-13 00:00:00 Test Item Value Reference Range Interpretation Comments CULTURE, URINE (test SPECIMEN NUMBER: code = 63632) [id number] CULTURE, URINE [ADDED]2021-02-13 00:00:00 Test Item Value Reference Range Interpretation Comments CULTURE, URINE (test SPECIMEN NUMBER: code = 16360) [id number] CULTURE, URINE [ADDED]2021-02-13 00:00:00 Test Item Value Reference Range Interpretation Comments CULTURE, URINE (test SPECIMEN NUMBER: code = 94760) [id number] CULTURE, URINE [ADDED]2021-02-13 00:00:00 Test Item Value Reference Range Interpretation Comments CULTURE, URINE (test SPECIMEN NUMBER: code = 30884) [id number] CULTURE, URINE [ADDED]2021-02-13 00:00:00 Test Item Value Reference Range Interpretation Comments CULTURE, URINE (test SPECIMEN NUMBER: code = 64541) [id number] CULTURE, URINE [ADDED]2021-02-13 00:00:00 Test Item Value Reference Range Interpretation Comments CULTURE, URINE (test SPECIMEN NUMBER: code = 00373) [id number] CULTURE, URINE [ADDED]2021-02-13 00:00:00 Test Item Value Reference Range Interpretation Comments CULTURE, URINE (test SPECIMEN NUMBER: code = 07759) [id number] CULTURE, URINE [ADDED]2021-02-13 00:00:00 Test Item Value Reference Range Interpretation Comments CULTURE, URINE (test SPECIMEN NUMBER: code = 19705) [id number] CULTURE, URINE [ADDED]2021-02-13 00:00:00 Test Item Value Reference Range Interpretation Comments CULTURE, URINE (test SPECIMEN NUMBER: code = 67463) [id number] CULTURE, URINE [ADDED]2021-02-13 00:00:00 Test Item Value Reference Range Interpretation Comments CULTURE, URINE (test SPECIMEN NUMBER: code = 62057) [id number] CULTURE, URINE [ADDED]2021-02-13 00:00:00 Test Item Value Reference Range Interpretation Comments CULTURE, URINE (test SPECIMEN NUMBER: code = 52834) [id number] CULTURE, URINE [ADDED]2021-02-13 00:00:00 Test Item Value Reference Range Interpretation Comments CULTURE, URINE (test SPECIMEN NUMBER: code = 22123) [id number] CULTURE, URINE [ADDED]2021-02-13 00:00:00 Test Item Value Reference Range Interpretation Comments CULTURE, URINE (test SPECIMEN NUMBER: code = 57479) [id number] CULTURE, URINE [ADDED]2021-02-13 00:00:00 Test Item Value Reference Range Interpretation Comments CULTURE, URINE (test SPECIMEN NUMBER: code = 01878) [id number] CULTURE, URINE [ADDED]2021-02-13 00:00:00 Test Item Value Reference Range Interpretation Comments CULTURE, URINE (test SPECIMEN NUMBER: code = 76664) [id number] CULTURE, URINE [ADDED]2021-02-13 00:00:00 Test Item Value Reference Range Interpretation Comments CULTURE, URINE (test SPECIMEN NUMBER: code = 98469) [id number] CULTURE, URINE [ADDED]2021-02-13 00:00:00 Test Item Value Reference Range Interpretation Comments CULTURE, URINE (test SPECIMEN NUMBER: code = 72523) [id number] CULTURE, URINE [ADDED]2021-02-13 00:00:00 Test Item Value Reference Range Interpretation Comments CULTURE, URINE (test SPECIMEN NUMBER: code = 37099) [id number] CULTURE, URINE [ADDED]2021-02-13 00:00:00 Test Item Value Reference Range Interpretation Comments CULTURE, URINE (test SPECIMEN NUMBER: code = 14863) [id number] CULTURE, URINE [ADDED]2021-02-13 00:00:00 Test Item Value Reference Range Interpretation Comments CULTURE, URINE (test SPECIMEN NUMBER: code = 48427) [id number] VAGINAL PATHOGENS DNA [id number] 00:00:00 Test Item Value Reference Range Interpretation Comments ANDIE SPECIES (test code = ) NEGATIVE G. VAGINALIS (test code = 32848) POSITIVE T. VAGINALIS (test code = ) NEGATIVE VAGINAL PATHOGENS DNA [id number] 00:00:00 Test Item Value Reference Range Interpretation Comments ANDIE SPECIES (test code = ) NEGATIVE G. VAGINALIS (test code = 13017) POSITIVE T. VAGINALIS (test code = 07414) NEGATIVE VAGINAL PATHOGENS DNA [id number] 00:00:00 Test Item Value Reference Range Interpretation Comments ANDIE SPECIES (test code = ) NEGATIVE G. VAGINALIS (test code = 17196) POSITIVE T. VAGINALIS (test code = 13213) NEGATIVE VAGINAL PATHOGENS DNA [id number] 00:00:00 Test Item Value Reference Range Interpretation Comments ANDIE SPECIES (test code = 51910) NEGATIVE G. VAGINALIS (test code = 90760) POSITIVE T. VAGINALIS (test code = 25298) NEGATIVE VAGINAL PATHOGENS DNA [id number] 00:00:00 Test Item Value Reference Range Interpretation Comments ANDIE SPECIES (test code = 99056) NEGATIVE G. VAGINALIS (test code = 48221) POSITIVE T. VAGINALIS (test code = 13986) NEGATIVE VAGINAL PATHOGENS DNA [id number] 00:00:00 Test Item Value Reference Range Interpretation Comments ANDIE SPECIES (test code = 49676) NEGATIVE G. VAGINALIS (test code = 31270) POSITIVE T. VAGINALIS (test code = 48448) NEGATIVE VAGINAL PATHOGENS DNA [id number] 00:00:00 Test Item Value Reference Range Interpretation Comments ANDIE SPECIES (test code = 75366) NEGATIVE G. VAGINALIS (test code = 95449) POSITIVE T. VAGINALIS (test code = 96495) NEGATIVE VAGINAL PATHOGENS DNA [id number] 00:00:00 Test Item Value Reference Range Interpretation Comments ANDIE SPECIES (test code = 51982) NEGATIVE G. VAGINALIS (test code = 00192) POSITIVE T. VAGINALIS (test code = 67339) NEGATIVE VAGINAL PATHOGENS DNA [id number] 00:00:00 Test Item Value Reference Range Interpretation Comments ANIDE SPECIES (test code = 72873) NEGATIVE G. VAGINALIS (test code = 78971) POSITIVE T. VAGINALIS (test code = 30876) NEGATIVE VAGINAL PATHOGENS DNA [id number] 00:00:00 Test Item Value Reference Range Interpretation Comments ANDIE SPECIES (test code = 79542) NEGATIVE G. VAGINALIS (test code = 35285) POSITIVE T. VAGINALIS (test code = 99935) NEGATIVE VAGINAL PATHOGENS DNA [id number] 00:00:00 Test Item Value Reference Range Interpretation Comments ANDIE SPECIES (test code = 36726) NEGATIVE G. VAGINALIS (test code = 93183) POSITIVE T. VAGINALIS (test code = 39991) NEGATIVE VAGINAL PATHOGENS DNA [id number] 00:00:00 Test Item Value Reference Range Interpretation Comments ANDIE SPECIES (test code = 05669) NEGATIVE G. VAGINALIS (test code = 88925) POSITIVE T. VAGINALIS (test code = 04918) NEGATIVE VAGINAL PATHOGENS DNA [id number] 00:00:00 Test Item Value Reference Range Interpretation Comments ANDIE SPECIES (test code = 13571) NEGATIVE G. VAGINALIS (test code = 86504) POSITIVE T. VAGINALIS (test code = 62772) NEGATIVE VAGINAL PATHOGENS DNA [id number] 00:00:00 Test Item Value Reference Range Interpretation Comments ANDIE SPECIES (test code = 45402) NEGATIVE G. VAGINALIS (test code = 55765) POSITIVE T. VAGINALIS (test code = 62242) NEGATIVE VAGINAL PATHOGENS DNA [id number] 00:00:00 Test Item Value Reference Range Interpretation Comments ANDIE SPECIES (test code = 85576) NEGATIVE G. VAGINALIS (test code = 41776) POSITIVE T. VAGINALIS (test code = 94134) NEGATIVE VAGINAL PATHOGENS DNA [id number] 00:00:00 Test Item Value Reference Range Interpretation Comments ANDIE SPECIES (test code = 82021) NEGATIVE G. VAGINALIS (test code = 65881) POSITIVE T. VAGINALIS (test code = 08962) NEGATIVE VAGINAL PATHOGENS DNA [id number] 00:00:00 Test Item Value Reference Range Interpretation Comments ANDIE SPECIES (test code = 44282) NEGATIVE G. VAGINALIS (test code = 63674) POSITIVE T. VAGINALIS (test code = 21195) NEGATIVE VAGINAL PATHOGENS DNA [id number] 00:00:00 Test Item Value Reference Range Interpretation Comments ANDIE SPECIES (test code = 99749) NEGATIVE G. VAGINALIS (test code = 32516) POSITIVE T. VAGINALIS (test code = 23023) NEGATIVE VAGINAL PATHOGENS DNA [id number] 00:00:00 Test Item Value Reference Range Interpretation Comments ANDIE SPECIES (test code = 15896) NEGATIVE G. VAGINALIS (test code = 28573) POSITIVE T. VAGINALIS (test code = 18170) NEGATIVE VAGINAL PATHOGENS DNA [id number] 00:00:00 Test Item Value Reference Range Interpretation Comments ANDIE SPECIES (test code = 21734) NEGATIVE G. VAGINALIS (test code = 01108) POSITIVE T. VAGINALIS (test code = 92829) NEGATIVE VAGINAL PATHOGENS DNA [id number] 00:00:00 Test Item Value Reference Range Interpretation Comments ANDIE SPECIES (test code = 33246) NEGATIVE G. VAGINALIS (test code = 15004) POSITIVE T. VAGINALIS (test code = 40194) NEGATIVE BLOOD GROUP (ABO) AND RH [id number] 00:00:00 Test Item Value Reference Range Interpretation Comments BLOOD TYPE AND RH (test code = A POSITIVE 3901) BLOOD GROUP (ABO) AND RH [id number] 00:00:00 Test Item Value Reference Range Interpretation Comments BLOOD TYPE AND RH (test code = A POSITIVE 3901) BLOOD GROUP (ABO) AND RH [id number] 00:00:00 Test Item Value Reference Range Interpretation Comments BLOOD TYPE AND RH (test code = A POSITIVE 3901) HEMOGLOBIN [id number] 00:00:00 Test Item Value Reference Range Interpretation Comments HEMOGLOBIN A1c (test code = 65447) 11.8 % HEMOGLOBIN [id number] 00:00:00 Test Item Value Reference Range Interpretation Comments HEMOGLOBIN A1c (test code = 26038) 11.8 % HEMOGLOBIN [id number] 00:00:00 Test Item Value Reference Range Interpretation Comments HEMOGLOBIN A1c (test code = 04935) 11.8 % BLOOD GROUP (ABO) AND RH [id number] 00:00:00 Test Item Value Reference Range Interpretation Comments BLOOD TYPE AND RH (test code = A POSITIVE 3901) BLOOD GROUP (ABO) AND RH [id number] 00:00:00 Test Item Value Reference Range Interpretation Comments BLOOD TYPE AND RH (test code = A POSITIVE 3901) BLOOD GROUP (ABO) AND RH [id number] 00:00:00 Test Item Value Reference Range Interpretation Comments BLOOD TYPE AND RH (test code = A POSITIVE 3901) HEMOGLOBIN [id number] 00:00:00 Test Item Value Reference Range Interpretation Comments HEMOGLOBIN A1c (test code = 16153) 11.8 % HEMOGLOBIN [id number] 00:00:00 Test Item Value Reference Range Interpretation Comments HEMOGLOBIN A1c (test code = 81106) 11.8 % HEMOGLOBIN [id number] 00:00:00 Test Item Value Reference Range Interpretation Comments HEMOGLOBIN A1c (test code = 61870) 11.8 % BLOOD GROUP (ABO) AND RH [id number] 00:00:00 Test Item Value Reference Range Interpretation Comments BLOOD TYPE AND RH (test code = A POSITIVE 3901) BLOOD GROUP (ABO) AND RH [id number] 00:00:00 Test Item Value Reference Range Interpretation Comments BLOOD TYPE AND RH (test code = A POSITIVE 3901) BLOOD GROUP (ABO) AND RH [id number] 00:00:00 Test Item Value Reference Range Interpretation Comments BLOOD TYPE AND RH (test code = A POSITIVE 3901) HEMOGLOBIN [id number] 00:00:00 Test Item Value Reference Range Interpretation Comments HEMOGLOBIN A1c (test code = 53481) 11.8 % HEMOGLOBIN [id number] 00:00:00 Test Item Value Reference Range Interpretation Comments HEMOGLOBIN A1c (test code = 40932) 11.8 % HEMOGLOBIN [id number] 00:00:00 Test Item Value Reference Range Interpretation Comments HEMOGLOBIN A1c (test code = 31639) 11.8 % BLOOD GROUP (ABO) AND RH [id number] 00:00:00 Test Item Value Reference Range Interpretation Comments BLOOD TYPE AND RH (test code = A POSITIVE 3901) BLOOD GROUP (ABO) AND RH [id number] 00:00:00 Test Item Value Reference Range Interpretation Comments BLOOD TYPE AND RH (test code = A POSITIVE 3901) BLOOD GROUP (ABO) AND RH [id number] 00:00:00 Test Item Value Reference Range Interpretation Comments BLOOD TYPE AND RH (test code = A POSITIVE 3901) HEMOGLOBIN [id number] 00:00:00 Test Item Value Reference Range Interpretation Comments HEMOGLOBIN A1c (test code = 87984) 11.8 % HEMOGLOBIN [id number] 00:00:00 Test Item Value Reference Range Interpretation Comments HEMOGLOBIN A1c (test code = 01051) 11.8 % HEMOGLOBIN [id number] 00:00:00 Test Item Value Reference Range Interpretation Comments HEMOGLOBIN A1c (test code = 35219) 11.8 % BLOOD GROUP (ABO) AND RH [id number] 00:00:00 Test Item Value Reference Range Interpretation Comments BLOOD TYPE AND RH (test code = A POSITIVE 3901) BLOOD GROUP (ABO) AND RH [id number] 00:00:00 Test Item Value Reference Range Interpretation Comments BLOOD TYPE AND RH (test code = A POSITIVE 3901) BLOOD GROUP (ABO) AND RH [id number] 00:00:00 Test Item Value Reference Range Interpretation Comments BLOOD TYPE AND RH (test code = A POSITIVE 3901) HEMOGLOBIN [id number] 00:00:00 Test Item Value Reference Range Interpretation Comments HEMOGLOBIN A1c (test code = 11958) 11.8 % HEMOGLOBIN [id number] 00:00:00 Test Item Value Reference Range Interpretation Comments HEMOGLOBIN A1c (test code = 64317) 11.8 % HEMOGLOBIN [id number] 00:00:00 Test Item Value Reference Range Interpretation Comments HEMOGLOBIN A1c (test code = 45771) 11.8 % BLOOD GROUP (ABO) AND RH [id number] 00:00:00 Test Item Value Reference Range Interpretation Comments BLOOD TYPE AND RH (test code = A POSITIVE 3901) BLOOD GROUP (ABO) AND RH [id number] 00:00:00 Test Item Value Reference Range Interpretation Comments BLOOD TYPE AND RH (test code = A POSITIVE 3901) BLOOD GROUP (ABO) AND RH [id number] 00:00:00 Test Item Value Reference Range Interpretation Comments BLOOD TYPE AND RH (test code = A POSITIVE 3901) HEMOGLOBIN [id number] 00:00:00 Test Item Value Reference Range Interpretation Comments HEMOGLOBIN A1c (test code = 27429) 11.8 % HEMOGLOBIN [id number] 00:00:00 Test Item Value Reference Range Interpretation Comments HEMOGLOBIN A1c (test code = 28581) 11.8 % HEMOGLOBIN [id number] 00:00:00 Test Item Value Reference Range Interpretation Comments HEMOGLOBIN A1c (test code = 26093) 11.8 % BLOOD GROUP (ABO) AND RH [id number] 00:00:00 Test Item Value Reference Range Interpretation Comments BLOOD TYPE AND RH (test code = A POSITIVE 3901) BLOOD GROUP (ABO) AND RH [id number] 00:00:00 Test Item Value Reference Range Interpretation Comments BLOOD TYPE AND RH (test code = A POSITIVE 3901) BLOOD GROUP (ABO) AND RH [id number] 00:00:00 Test Item Value Reference Range Interpretation Comments BLOOD TYPE AND RH (test code = A POSITIVE 3901) HEMOGLOBIN [id number] 00:00:00 Test Item Value Reference Range Interpretation Comments HEMOGLOBIN A1c (test code = 06064) 11.8 % BLOOD GROUP (ABO) AND RH [id number] 00:00:00 Test Item Value Reference Range Interpretation Comments BLOOD TYPE AND RH (test code = A POSITIVE 3901) HEMOGLOBIN [id number] 00:00:00 Test Item Value Reference Range Interpretation Comments HEMOGLOBIN A1c (test code = 64313) 11.8 % HEMOGLOBIN [id number] 00:00:00 Test Item Value Reference Range Interpretation Comments HEMOGLOBIN A1c (test code = 71052) 11.8 % BLOOD GROUP (ABO) AND RH [id number] 00:00:00 Test Item Value Reference Range Interpretation Comments BLOOD TYPE AND RH (test code = A POSITIVE 3901) HEMOGLOBIN [id number] 00:00:00 Test Item Value Reference Range Interpretation Comments HEMOGLOBIN A1c (test code = 45043) 11.8 % HEMOGLOBIN [id number] 00:00:00 Test Item Value Reference Range Interpretation Comments HEMOGLOBIN A1c (test code = 90439) 11.8 % BLOOD GROUP (ABO) AND RH [id number] 00:00:00 Test Item Value Reference Range Interpretation Comments BLOOD TYPE AND RH (test code = A POSITIVE 3901) BLOOD GROUP (ABO) AND RH [id number] 00:00:00 Test Item Value Reference Range Interpretation Comments BLOOD TYPE AND RH (test code = A POSITIVE 3901) BLOOD GROUP (ABO) AND RH [id number] 00:00:00 Test Item Value Reference Range Interpretation Comments BLOOD TYPE AND RH (test code = A POSITIVE 3901) HEMOGLOBIN [id number] 00:00:00 Test Item Value Reference Range Interpretation Comments HEMOGLOBIN A1c (test code = 33242) 11.8 % HEMOGLOBIN [id number] 00:00:00 Test Item Value Reference Range Interpretation Comments HEMOGLOBIN A1c (test code = 46971) 11.8 % HEMOGLOBIN [id number] 00:00:00 Test Item Value Reference Range Interpretation Comments HEMOGLOBIN A1c (test code = 80632) 11.8 % BLOOD GROUP (ABO) AND RH [id number] 00:00:00 Test Item Value Reference Range Interpretation Comments BLOOD TYPE AND RH (test code = A POSITIVE 3901) BLOOD GROUP (ABO) AND RH [id number] 00:00:00 Test Item Value Reference Range Interpretation Comments BLOOD TYPE AND RH (test code = A POSITIVE 3901) BLOOD GROUP (ABO) AND RH [id number] 00:00:00 Test Item Value Reference Range Interpretation Comments BLOOD TYPE AND RH (test code = A POSITIVE 3901) HEMOGLOBIN [id number] 00:00:00 Test Item Value Reference Range Interpretation Comments HEMOGLOBIN A1c (test code = 72083) 11.8 % HEMOGLOBIN [id number] 00:00:00 Test Item Value Reference Range Interpretation Comments HEMOGLOBIN A1c (test code = 65389) 11.8 % HEMOGLOBIN [id number] 00:00:00 Test Item Value Reference Range Interpretation Comments HEMOGLOBIN A1c (test code = 92830) 11.8 % BLOOD GROUP (ABO) AND RH [id number] 00:00:00 Test Item Value Reference Range Interpretation Comments BLOOD TYPE AND RH (test code = A POSITIVE 3901) BLOOD GROUP (ABO) AND RH [id number] 00:00:00 Test Item Value Reference Range Interpretation Comments BLOOD TYPE AND RH (test code = A POSITIVE 3901) BLOOD GROUP (ABO) AND RH [id number] 00:00:00 Test Item Value Reference Range Interpretation Comments BLOOD TYPE AND RH (test code = A POSITIVE 3901) HEMOGLOBIN [id number] 00:00:00 Test Item Value Reference Range Interpretation Comments HEMOGLOBIN A1c (test code = 73472) 11.8 % HEMOGLOBIN [id number] 00:00:00 Test Item Value Reference Range Interpretation Comments HEMOGLOBIN A1c (test code = 82039) 11.8 % HEMOGLOBIN [id number] 00:00:00 Test Item Value Reference Range Interpretation Comments HEMOGLOBIN A1c (test code = 84177) 11.8 % COMPREHENSIVE METABOLIC [id number] 00:00:00 Test Item Value Reference Range Interpretation Comments GLUCOSE (test code = 2217) 277 MG/DL BUN (test code = 2208) 26 MG/DL CREATININE (test code = 2214) 1.04 MG/DL eGFR AMER. (test code 77 ML/MIN/1.73 = 69160) eGFR NON- AMER. (test 66 ML/MIN/1.73 code = 71100) CALC BUN/CREAT (test code = 25 RATIO [...] code = 2219) 51 U/L COMPREHENSIVE METABOLIC [id number] 00:00:00 Test Item Value Reference Range Interpretation Comments GLUCOSE (test code = 2217) 277 MG/DL BUN (test code = 2208) 26 MG/DL CREATININE (test code = 2214) 1.04 MG/DL eGFR AMER. (test code 77 ML/MIN/1.73 = 93384) eGFR NON- AMER. (test 66 ML/MIN/1.73 code = 99342) CALC BUN/CREAT (test code = 25 RATIO [...] (test code = 2219) 51 U/L CULTURE, [id number] 00:00:00 Test Item Value Reference Range Interpretation Comments CULTURE, URINE (test SPECIMEN NUMBER: code = 33110) [id number] CULTURE, [id number] 00:00:00 Test Item Value Reference Range Interpretation Comments CULTURE, URINE (test SPECIMEN NUMBER: code = 42713) [id number] COMPREHENSIVE METABOLIC [id number] 00:00:00 Test Item Value Reference Range Interpretation Comments GLUCOSE (test code = 2217) 277 MG/DL BUN (test code = 2208) 26 MG/DL CREATININE (test code = 2214) 1.04 MG/DL eGFR AMER. (test code 77 ML/MIN/1.73 = 82250) eGFR NON- AMER. (test 66 ML/MIN/1.73 code = 10934) CALC BUN/CREAT (test code = 25 RATIO [...] code = 2219) 51 U/L COMPREHENSIVE METABOLIC [id number] 00:00:00 Test Item Value Reference Range Interpretation Comments GLUCOSE (test code = 2217) 277 MG/DL BUN (test code = 2208) 26 MG/DL CREATININE (test code = 2214) 1.04 MG/DL eGFR AMER. (test code 77 ML/MIN/1.73 = 51710) eGFR NON- AMER. (test 66 ML/MIN/1.73 code = 85513) CALC BUN/CREAT (test code = 25 RATIO [...] (test code = 2219) 51 U/L CULTURE, [id number] 00:00:00 Test Item Value Reference Range Interpretation Comments CULTURE, URINE (test SPECIMEN NUMBER: code = 27030) [id number] CULTURE, [id number] 00:00:00 Test Item Value Reference Range Interpretation Comments CULTURE, URINE (test SPECIMEN NUMBER: code = 40098) [id number] COMPREHENSIVE METABOLIC [id number] 00:00:00 Test Item Value Reference Range Interpretation Comments GLUCOSE (test code = 2217) 277 MG/DL BUN (test code = 8) 26 MG/DL CREATININE (test code = 2214) 1.04 MG/DL eGFR AMER. (test code 77 ML/MIN/1.73 = 25679) eGFR NON- AMER. (test 66 ML/MIN/1.73 code = 27816) CALC BUN/CREAT (test code = 25 RATIO [...] code = 2219) 51 U/L COMPREHENSIVE METABOLIC [id number] 00:00:00 Test Item Value Reference Range Interpretation Comments GLUCOSE (test code = 2217) 277 MG/DL BUN (test code = 2208) 26 MG/DL CREATININE (test code = 2214) 1.04 MG/DL eGFR AMER. (test code 77 ML/MIN/1.73 = 07481) eGFR NON- AMER. (test 66 ML/MIN/1.73 code = 84289) CALC BUN/CREAT (test code = 25 RATIO [...] (test code = 2219) 51 U/L CULTURE, [id number] 00:00:00 Test Item Value Reference Range Interpretation Comments CULTURE, URINE (test SPECIMEN NUMBER: code = 05438) [id number] CULTURE, [id number] 00:00:00 Test Item Value Reference Range Interpretation Comments CULTURE, URINE (test SPECIMEN NUMBER: code = 16382) [id number] COMPREHENSIVE METABOLIC [id number] 00:00:00 Test Item Value Reference Range Interpretation Comments GLUCOSE (test code = 2217) 277 MG/DL BUN (test code = 2208) 26 MG/DL CREATININE (test code = 2214) 1.04 MG/DL eGFR AMER. (test code 77 ML/MIN/1.73 = 23942) eGFR NON- AMER. (test 66 ML/MIN/1.73 code = 91274) CALC BUN/CREAT (test code = 25 RATIO [...] code = 2219) 51 U/L COMPREHENSIVE METABOLIC [id number] 00:00:00 Test Item Value Reference Range Interpretation Comments GLUCOSE (test code = 2217) 277 MG/DL BUN (test code = 2208) 26 MG/DL CREATININE (test code = 2214) 1.04 MG/DL eGFR AMER. (test code 77 ML/MIN/1.73 = 95136) eGFR NON- AMER. (test 66 ML/MIN/1.73 code = 18541) CALC BUN/CREAT (test code = 25 RATIO [...] (test code = 2219) 51 U/L CULTURE, [id number] 00:00:00 Test Item Value Reference Range Interpretation Comments CULTURE, URINE (test SPECIMEN NUMBER: code = 22507) [id number] CULTURE, [id number] 00:00:00 Test Item Value Reference Range Interpretation Comments CULTURE, URINE (test SPECIMEN NUMBER: code = 13501) [id number] COMPREHENSIVE METABOLIC [id number] 00:00:00 Test Item Value Reference Range Interpretation Comments GLUCOSE (test code = 2217) 277 MG/DL BUN (test code = 2208) 26 MG/DL CREATININE (test code = 2214) 1.04 MG/DL eGFR AMER. (test code 77 ML/MIN/1.73 = 78200) eGFR NON- AMER. (test 66 ML/MIN/1.73 code = 31579) CALC BUN/CREAT (test code = 25 RATIO [...] code = 2219) 51 U/L COMPREHENSIVE METABOLIC [id number] 00:00:00 Test Item Value Reference Range Interpretation Comments GLUCOSE (test code = 2217) 277 MG/DL BUN (test code = 2208) 26 MG/DL CREATININE (test code = 2214) 1.04 MG/DL eGFR AMER. (test code 77 ML/MIN/1.73 = 45970) eGFR NON- AMER. (test 66 ML/MIN/1.73 code = 27468) CALC BUN/CREAT (test code = 25 RATIO [...] (test code = 2219) 51 U/L CULTURE, [id number] 00:00:00 Test Item Value Reference Range Interpretation Comments CULTURE, URINE (test SPECIMEN NUMBER: code = 96645) [id number] CULTURE, [id number] 00:00:00 Test Item Value Reference Range Interpretation Comments CULTURE, URINE (test SPECIMEN NUMBER: code = 42126) [id number] COMPREHENSIVE METABOLIC [id number] 00:00:00 Test Item Value Reference Range Interpretation Comments GLUCOSE (test code = 2217) 277 MG/DL BUN (test code = 2208) 26 MG/DL CREATININE (test code = 2214) 1.04 MG/DL eGFR AMER. (test code 77 ML/MIN/1.73 = 38331) eGFR NON- AMER. (test 66 ML/MIN/1.73 code = 72081) CALC BUN/CREAT (test code = 25 RATIO [...] code = 2219) 51 U/L COMPREHENSIVE METABOLIC [id number] 00:00:00 Test Item Value Reference Range Interpretation Comments GLUCOSE (test code = 2217) 277 MG/DL BUN (test code = 2208) 26 MG/DL CREATININE (test code = 2214) 1.04 MG/DL eGFR AMER. (test code 77 ML/MIN/1.73 = 23839) eGFR NON- AMER. (test 66 ML/MIN/1.73 code = 74525) CALC BUN/CREAT (test code = 25 RATIO [...] (test code = 2219) 51 U/L CULTURE, [id number] 00:00:00 Test Item Value Reference Range Interpretation Comments CULTURE, URINE (test SPECIMEN NUMBER: code = 47009) [id number] CULTURE, [id number] 00:00:00 Test Item Value Reference Range Interpretation Comments CULTURE, URINE (test SPECIMEN NUMBER: code = 18657) [id number] COMPREHENSIVE METABOLIC [id number] 00:00:00 Test Item Value Reference Range Interpretation Comments GLUCOSE (test code = 2217) 277 MG/DL BUN (test code = 2208) 26 MG/DL CREATININE (test code = 2214) 1.04 MG/DL eGFR AMER. (test code 77 ML/MIN/1.73 = 96030) eGFR NON- AMER. (test 66 ML/MIN/1.73 code = 51020) CALC BUN/CREAT (test code = 25 RATIO [...] code = 2219) 51 U/L COMPREHENSIVE METABOLIC [id number] 00:00:00 Test Item Value Reference Range Interpretation Comments GLUCOSE (test code = 2217) 277 MG/DL BUN (test code = 2208) 26 MG/DL CREATININE (test code = 2214) 1.04 MG/DL eGFR AMER. (test code 77 ML/MIN/1.73 = 71836) eGFR NON- AMER. (test 66 ML/MIN/1.73 code = 00692) CALC BUN/CREAT (test code = 25 RATIO [...] (test code = 2219) 51 U/L CULTURE, [id number] 00:00:00 Test Item Value Reference Range Interpretation Comments CULTURE, URINE (test SPECIMEN NUMBER: code = 28292) [id number] CULTURE, [id number] 00:00:00 Test Item Value Reference Range Interpretation Comments CULTURE, URINE (test SPECIMEN NUMBER: code = 87157) [id number] COMPREHENSIVE METABOLIC [id number] 00:00:00 Test Item Value Reference Range Interpretation Comments GLUCOSE (test code = 2217) 277 MG/DL BUN (test code = 2208) 26 MG/DL CREATININE (test code = 2214) 1.04 MG/DL eGFR AMER. (test code 77 ML/MIN/1.73 = 93349) eGFR NON- AMER. (test 66 ML/MIN/1.73 code = 37151) CALC BUN/CREAT (test code = 25 RATIO [...] CALC GLOBULIN (test code = 3.2 G/DL 224) CALC A/G RATIO (test code = 1.7 RATIO 2234) BILIRUBIN, TOTAL (test code = 0.3 MG/DL 2206) ALKALINE PHOSPHATASE (test 44 U/L code = 2204) AST (test code = 2218) 32 U/L ALT (test code = 2219) 51 U/L CULTURE, [id number] 00:00:00 Test Item Value Reference Range Interpretation Comments CULTURE, URINE (test SPECIMEN NUMBER: code = 85944) [id number] COMPREHENSIVE METABOLIC [id number] 00:00:00 Test Item Value Reference Range Interpretation Comments GLUCOSE (test code = 2217) 277 MG/DL BUN (test code = 2208) 26 MG/DL CREATININE (test code = 2214) 1.04 MG/DL eGFR AMER. (test code 77 ML/MIN/1.73 = 20068) eGFR NON- AMER. (test 66 ML/MIN/1.73 code = 92619) CALC BUN/CREAT (test code = 25 RATIO [...] code = 2219) 51 U/L COMPREHENSIVE METABOLIC [id number] 00:00:00 Test Item Value Reference Range Interpretation Comments GLUCOSE (test code = 2217) 277 MG/DL BUN (test code = 2208) 26 MG/DL CREATININE (test code = 2214) 1.04 MG/DL eGFR AMER. (test code 77 ML/MIN/1.73 = 64054) eGFR NON- AMER. (test 66 ML/MIN/1.73 code = 32944) CALC BUN/CREAT (test code = 25 RATIO [...] (test code = 2219) 51 U/L CULTURE, [id number] 00:00:00 Test Item Value Reference Range Interpretation Comments CULTURE, URINE (test SPECIMEN NUMBER: code = 53150) [id number] CULTURE, [id number] 00:00:00 Test Item Value Reference Range Interpretation Comments CULTURE, URINE (test SPECIMEN NUMBER: code = 09420) [id number] COMPREHENSIVE METABOLIC [id number] 00:00:00 Test Item Value Reference Range Interpretation Comments GLUCOSE (test code = 2217) 277 MG/DL BUN (test code = 2208) 26 MG/DL CREATININE (test code = 2214) 1.04 MG/DL eGFR AMER. (test code 77 ML/MIN/1.73 = 20153) eGFR NON- AMER. (test 66 ML/MIN/1.73 code = 49618) CALC BUN/CREAT (test code = 25 RATIO [...] code = 2219) 51 U/L COMPREHENSIVE METABOLIC [id number] 00:00:00 Test Item Value Reference Range Interpretation Comments GLUCOSE (test code = 2217) 277 MG/DL BUN (test code = 2208) 26 MG/DL CREATININE (test code = 2214) 1.04 MG/DL eGFR AMER. (test code 77 ML/MIN/1.73 = 85151) eGFR NON- AMER. (test 66 ML/MIN/1.73 code = 85755) CALC BUN/CREAT (test code = 25 RATIO [...] (test code = 2219) 51 U/L CULTURE, [id number] 00:00:00 Test Item Value Reference Range Interpretation Comments CULTURE, URINE (test SPECIMEN NUMBER: code = 41112) [id number] CULTURE, [id number] 00:00:00 Test Item Value Reference Range Interpretation Comments CULTURE, URINE (test SPECIMEN NUMBER: code = 40310) [id number] COMPREHENSIVE METABOLIC [id number] 00:00:00 Test Item Value Reference Range Interpretation Comments GLUCOSE (test code = 2217) 277 MG/DL BUN (test code = 2208) 26 MG/DL CREATININE (test code = 2214) 1.04 MG/DL eGFR AMER. (test code 77 ML/MIN/1.73 = 60487) eGFR NON- AMER. (test 66 ML/MIN/1.73 code = 37967) CALC BUN/CREAT (test code = 25 RATIO [...] code = 2219) 51 U/L COMPREHENSIVE METABOLIC [id number] 00:00:00 Test Item Value Reference Range Interpretation Comments GLUCOSE (test code = 2217) 277 MG/DL BUN (test code = 2208) 26 MG/DL CREATININE (test code = 2214) 1.04 MG/DL eGFR AMER. (test code 77 ML/MIN/1.73 = 78337) eGFR NON- AMER. (test 66 ML/MIN/1.73 code = 80987) CALC BUN/CREAT (test code = 25 RATIO [...] (test code = 2219) 51 U/L CULTURE, [id number] 00:00:00 Test Item Value Reference Range Interpretation Comments CULTURE, URINE (test SPECIMEN NUMBER: code = 59363) [id number] CULTURE, [id number] 00:00:00 Test Item Value Reference Range Interpretation Comments CULTURE, URINE (test SPECIMEN NUMBER: code = 75646) [id number] CBC W/AUTO [id number] 00:00:00 Test Item Value Reference Range Interpretation [...] NUCLEATED RBCS (test code = 0.00 K/UL 60048) CBC W/AUTO [id number] 00:00:00 Test Item Value Reference Range Interpretation [...] NUCLEATED RBCS (test code = 0.00 K/UL 83303) CBC W/AUTO [id number] 00:00:00 Test Item Value Reference Range Interpretation [...] NUCLEATED RBCS (test code = 0.00 K/UL 31387) CBC W/AUTO [id number] 00:00:00 Test Item Value Reference Range Interpretation [...] NUCLEATED RBCS (test code = 0.00 K/UL 50543) CBC W/AUTO [id number] 00:00:00 Test Item Value Reference Range Interpretation [...] NUCLEATED RBCS (test code = 0.00 K/UL 15619) CBC W/AUTO [id number] 00:00:00 Test Item Value Reference Range Interpretation [...] NUCLEATED RBCS (test code = 0.00 K/UL 93417) CBC W/AUTO [id number] 00:00:00 Test Item Value Reference Range Interpretation [...] NUCLEATED RBCS (test code = 0.00 K/UL 85546) CBC W/AUTO [id number] 00:00:00 Test Item Value Reference Range Interpretation [...] NUCLEATED RBCS (test code = 0.00 K/UL 90625) CBC W/AUTO [id number] 00:00:00 Test Item Value Reference Range Interpretation [...] NUCLEATED RBCS (test code = 0.00 K/UL 41541) CBC W/AUTO [id number] 00:00:00 Test Item Value Reference Range Interpretation [...] NUCLEATED RBCS (test code = 0.00 K/UL 55140) CBC W/AUTO [id number] 00:00:00 Test Item Value Reference Range Interpretation [...] NUCLEATED RBCS (test code = 0.00 K/UL 98511) CBC W/AUTO [id number] 00:00:00 Test Item Value Reference Range Interpretation [...] NUCLEATED RBCS (test code = 0.00 K/UL 94499) CBC W/AUTO [id number] 00:00:00 Test Item Value Reference Range Interpretation [...] NUCLEATED RBCS (test code = 0.00 K/UL 42299) CBC W/AUTO [id number] 00:00:00 Test Item Value Reference Range Interpretation [...] NUCLEATED RBCS (test code = 0.00 K/UL 00713) CBC W/AUTO [id number] 00:00:00 Test Item Value Reference Range Interpretation [...] NUCLEATED RBCS (test code = 0.00 K/UL 71547) CBC W/AUTO [id number] 00:00:00 Test Item Value Reference Range Interpretation [...] NUCLEATED RBCS (test code = 0.00 K/UL 57791) CBC W/AUTO [id number] 00:00:00 Test Item Value Reference Range Interpretation [...] NUCLEATED RBCS (test code = 0.00 K/UL 79598) CBC W/AUTO [id number] 00:00:00 Test Item Value Reference Range Interpretation [...] NUCLEATED RBCS (test code = 0.00 K/UL 91332) CBC W/AUTO [id number] 00:00:00 Test Item Value Reference Range Interpretation [...] NUCLEATED RBCS (test code = 0.00 K/UL 47691) CBC W/AUTO [id number] 00:00:00 Test Item Value Reference Range Interpretation [...] NUCLEATED RBCS (test code = 0.00 K/UL 30777) CBC W/AUTO [id number] 00:00:00 Test Item Value Reference Range Interpretation [...] NUCLEATED RBCS (test code = 0.00 K/UL 04555) CBC W/AUTO [id number] 00:00:00 Test Item Value Reference Range Interpretation [...] NUCLEATED RBCS (test code = 0.00 K/UL 06203) CBC W/AUTO [id number] 00:00:00 Test Item Value Reference Range Interpretation [...] NUCLEATED RBCS (test code = 0.00 K/UL 93704) CBC W/AUTO [id number] 00:00:00 Test Item Value Reference Range Interpretation [...] NUCLEATED RBCS (test code = 0.00 K/UL 46999) CBC W/AUTO [id number] 00:00:00 Test Item Value Reference Range Interpretation [...] NUCLEATED RBCS (test code = 0.00 K/UL 39382) CBC W/AUTO [id number] 00:00:00 Test Item Value Reference Range Interpretation [...] NUCLEATED RBCS (test code = 0.00 K/UL 86035) CBC W/AUTO [id number] 00:00:00 Test Item Value Reference Range Interpretation [...] NUCLEATED RBCS (test code = 0.00 K/UL 45202) CBC W/AUTO [id number] 00:00:00 Test Item Value Reference Range Interpretation [...] NUCLEATED RBCS (test code = 0.00 K/UL 66051) CBC W/AUTO [id number] 00:00:00 Test Item Value Reference Range Interpretation [...] NUCLEATED RBCS (test code = 0.00 K/UL 14371) CBC W/AUTO [id number] 00:00:00 Test Item Value Reference Range Interpretation [...] NUCLEATED RBCS (test code = 0.00 K/UL 24527) CBC W/AUTO [id number] 00:00:00 Test Item Value Reference Range Interpretation [...] NUCLEATED RBCS (test code = 0.00 K/UL 58427) CBC W/AUTO [id number] 00:00:00 Test Item Value Reference Range Interpretation [...] NUCLEATED RBCS (test code = 0.00 K/UL 30700) VAGINAL PATHOGENS DNA [id number] 00:00:00 Test Item Value Reference Range Interpretation Comments ANDIE SPECIES (test code = ) NEGATIVE G. VAGINALIS (test code = 97380) NEGATIVE T. VAGINALIS (test code = 14016) NEGATIVE VAGINAL PATHOGENS DNA [id number] 00:00:00 Test Item Value Reference Range Interpretation Comments ANDIE SPECIES (test code = 58590) NEGATIVE G. VAGINALIS (test code = 53670) NEGATIVE T. VAGINALIS (test code = 10712) NEGATIVE VAGINAL PATHOGENS DNA [id number] 00:00:00 Test Item Value Reference Range Interpretation Comments ANDIE SPECIES (test code = 06601) NEGATIVE G. VAGINALIS (test code = 05665) NEGATIVE T. VAGINALIS (test code = 20374) NEGATIVE VAGINAL PATHOGENS DNA [id number] 00:00:00 Test Item Value Reference Range Interpretation Comments ANDIE SPECIES (test code = 08858) NEGATIVE G. VAGINALIS (test code = 99014) NEGATIVE T. VAGINALIS (test code = 08077) NEGATIVE VAGINAL PATHOGENS DNA [id number] 00:00:00 Test Item Value Reference Range Interpretation Comments ANDIE SPECIES (test code = 35230) NEGATIVE G. VAGINALIS (test code = 73679) NEGATIVE T. VAGINALIS (test code = 66229) NEGATIVE VAGINAL PATHOGENS DNA [id number] 00:00:00 Test Item Value Reference Range Interpretation Comments ANDIE SPECIES (test code = 89477) NEGATIVE G. VAGINALIS (test code = 25316) NEGATIVE T. VAGINALIS (test code = 10628) NEGATIVE VAGINAL PATHOGENS DNA [id number] 00:00:00 Test Item Value Reference Range Interpretation Comments ANDIE SPECIES (test code = 17207) NEGATIVE G. VAGINALIS (test code = 23954) NEGATIVE T. VAGINALIS (test code = 75054) NEGATIVE VAGINAL PATHOGENS DNA [id number] 00:00:00 Test Item Value Reference Range Interpretation Comments ANDIE SPECIES (test code = 99707) NEGATIVE G. VAGINALIS (test code = 22430) NEGATIVE T. VAGINALIS (test code = 15021) NEGATIVE VAGINAL PATHOGENS DNA [id number] 00:00:00 Test Item Value Reference Range Interpretation Comments ANDIE SPECIES (test code = 44684) NEGATIVE G. VAGINALIS (test code = 75987) NEGATIVE T. VAGINALIS (test code = 51502) NEGATIVE VAGINAL PATHOGENS DNA [id number] 00:00:00 Test Item Value Reference Range Interpretation Comments ANDIE SPECIES (test code = 09461) NEGATIVE G. VAGINALIS (test code = 07660) NEGATIVE T. VAGINALIS (test code = 77443) NEGATIVE VAGINAL PATHOGENS DNA [id number] 00:00:00 Test Item Value Reference Range Interpretation Comments ANDIE SPECIES (test code = 48605) NEGATIVE G. VAGINALIS (test code = 65895) NEGATIVE T. VAGINALIS (test code = 58376) NEGATIVE VAGINAL PATHOGENS DNA [id number] 00:00:00 Test Item Value Reference Range Interpretation Comments ANDIE SPECIES (test code = ) NEGATIVE G. VAGINALIS (test code = 32425) NEGATIVE T. VAGINALIS (test code = 05463) NEGATIVE VAGINAL PATHOGENS DNA [id number] 00:00:00 Test Item Value Reference Range Interpretation Comments ANDIE SPECIES (test code = 26962) NEGATIVE G. VAGINALIS (test code = 09415) NEGATIVE T. VAGINALIS (test code = 21459) NEGATIVE VAGINAL PATHOGENS DNA [id number] 00:00:00 Test Item Value Reference Range Interpretation Comments ANDIE SPECIES (test code = 71061) NEGATIVE G. VAGINALIS (test code = 80701) NEGATIVE T. VAGINALIS (test code = 96292) NEGATIVE VAGINAL PATHOGENS DNA [id number] 00:00:00 Test Item Value Reference Range Interpretation Comments ANDIE SPECIES (test code = 19779) NEGATIVE G. VAGINALIS (test code = 35278) NEGATIVE T. VAGINALIS (test code = 61045) NEGATIVE VAGINAL PATHOGENS DNA [id number] 00:00:00 Test Item Value Reference Range Interpretation Comments ANDIE SPECIES (test code = 90825) NEGATIVE G. VAGINALIS (test code = 27312) NEGATIVE T. VAGINALIS (test code = ) NEGATIVE VAGINAL PATHOGENS DNA [id number] 00:00:00 Test Item Value Reference Range Interpretation Comments ANDIE SPECIES (test code = 86259) NEGATIVE G. VAGINALIS (test code = 92954) NEGATIVE T. VAGINALIS (test code = 75885) NEGATIVE VAGINAL PATHOGENS DNA [id number] 00:00:00 Test Item Value Reference Range Interpretation Comments ANDIE SPECIES (test code = 04908) NEGATIVE G. VAGINALIS (test code = 78383) NEGATIVE T. VAGINALIS (test code = 01926) NEGATIVE VAGINAL PATHOGENS DNA [id number] 00:00:00 Test Item Value Reference Range Interpretation Comments ANDIE SPECIES (test code = 29636) NEGATIVE G. VAGINALIS (test code = 89596) NEGATIVE T. VAGINALIS (test code = 31619) NEGATIVE VAGINAL PATHOGENS DNA [id number] 00:00:00 Test Item Value Reference Range Interpretation Comments ANDIE SPECIES (test code = 39096) NEGATIVE G. VAGINALIS (test code = 27542) NEGATIVE T. VAGINALIS (test code = 32308) NEGATIVE VAGINAL PATHOGENS DNA [id number] 00:00:00 Test Item Value Reference Range Interpretation Comments ANDIE SPECIES (test code = ) NEGATIVE G. VAGINALIS (test code = 78164) NEGATIVE T. VAGINALIS (test code = 85387) NEGATIVE HEMOGLOBIN [id number] 00:00:00 Test Item Value Reference Range Interpretation Comments HEMOGLOBIN A1c (test code = 94338) 11.4 % HEMOGLOBIN [id number] 00:00:00 Test Item Value Reference Range Interpretation Comments HEMOGLOBIN A1c (test code = 49930) 11.4 % HEMOGLOBIN [id number] 00:00:00 Test Item Value Reference Range Interpretation Comments HEMOGLOBIN A1c (test code = 42261) 11.4 % LIPID [id number] 00:00:00 Test Item Value Reference Range Interpretation Comments CHOLESTEROL (test code = 2210) 162 MG/DL TRIGLYCERIDES (test code = 2232) 387 MG/DL HDL CHOLESTEROL (test code = 2220) 30 MG/DL CALC LDL CHOL (test code = 2237) 80 MG/DL RISK RATIO LDL/HDL (test code = 2.67 RATIO 2238) LIPID [id number] 00:00:00 Test Item Value Reference Range Interpretation Comments CHOLESTEROL (test code = 2210) 162 MG/DL TRIGLYCERIDES (test code = 2232) 387 MG/DL HDL CHOLESTEROL (test code = 2220) 30 MG/DL CALC LDL CHOL (test code = 2237) 80 MG/DL RISK RATIO LDL/HDL (test code = 2.67 RATIO 2238) COMPREHENSIVE METABOLIC [id number] 00:00:00 Test Item Value Reference Range Interpretation Comments GLUCOSE (test code = 2217) 236 MG/DL BUN (test code = 2208) 14 MG/DL CREATININE (test code = 2214) 0.71 MG/DL eGFR AMER. (test code 122 ML/MIN/1.73 = 57118) eGFR NON- AMER. (test 105 ML/MIN/1.73 code = 37414) CALC BUN/CREAT (test code = 20 RATIO [...] code = 2219) 69 U/L COMPREHENSIVE METABOLIC [id number] 00:00:00 Test Item Value Reference Range Interpretation Comments GLUCOSE (test code = 2217) 236 MG/DL BUN (test code = 2208) 14 MG/DL CREATININE (test code = 2214) 0.71 MG/DL eGFR AMER. (test code 122 ML/MIN/1.73 = 88420) eGFR NON- AMER. (test 105 ML/MIN/1.73 code = 31510) CALC BUN/CREAT (test code = 20 RATIO [...] (test code = 2219) 69 U/L HEMOGLOBIN [id number] 00:00:00 Test Item Value Reference Range Interpretation Comments HEMOGLOBIN A1c (test code = 00149) 11.4 % HEMOGLOBIN [id number] 00:00:00 Test Item Value Reference Range Interpretation Comments HEMOGLOBIN A1c (test code = 48593) 11.4 % HEMOGLOBIN [id number] 00:00:00 Test Item Value Reference Range Interpretation Comments HEMOGLOBIN A1c (test code = 13064) 11.4 % LIPID [id number] 00:00:00 Test Item Value Reference Range Interpretation Comments CHOLESTEROL (test code = 2210) 162 MG/DL TRIGLYCERIDES (test code = 2232) 387 MG/DL HDL CHOLESTEROL (test code = 2220) 30 MG/DL CALC LDL CHOL (test code = 2237) 80 MG/DL RISK RATIO LDL/HDL (test code = 2.67 RATIO 2238) LIPID [id number] 00:00:00 Test Item Value Reference Range Interpretation Comments CHOLESTEROL (test code = 2210) 162 MG/DL TRIGLYCERIDES (test code = 2232) 387 MG/DL HDL CHOLESTEROL (test code = 2220) 30 MG/DL CALC LDL CHOL (test code = 2237) 80 MG/DL RISK RATIO LDL/HDL (test code = 2.67 RATIO 2238) COMPREHENSIVE METABOLIC [id number] 00:00:00 Test Item Value Reference Range Interpretation Comments GLUCOSE (test code = 2217) 236 MG/DL BUN (test code = 2208) 14 MG/DL CREATININE (test code = 2214) 0.71 MG/DL eGFR AMER. (test code 122 ML/MIN/1.73 = 69392) eGFR NON- AMER. (test 105 ML/MIN/1.73 code = 12763) CALC BUN/CREAT (test code = 20 RATIO [...] code = 2219) 69 U/L COMPREHENSIVE METABOLIC [id number] 00:00:00 Test Item Value Reference Range Interpretation Comments GLUCOSE (test code = 2217) 236 MG/DL BUN (test code = 2208) 14 MG/DL CREATININE (test code = 2214) 0.71 MG/DL eGFR AMER. (test code 122 ML/MIN/1.73 = 53680) eGFR NON- AMER. (test 105 ML/MIN/1.73 code = 49568) CALC BUN/CREAT (test code = 20 RATIO [...] (test code = 2219) 69 U/L HEMOGLOBIN [id number] 00:00:00 Test Item Value Reference Range Interpretation Comments HEMOGLOBIN A1c (test code = 78477) 11.4 % HEMOGLOBIN [id number] 00:00:00 Test Item Value Reference Range Interpretation Comments HEMOGLOBIN A1c (test code = 13244) 11.4 % HEMOGLOBIN [id number] 00:00:00 Test Item Value Reference Range Interpretation Comments HEMOGLOBIN A1c (test code = 49932) 11.4 % LIPID [id number] 00:00:00 Test Item Value Reference Range Interpretation Comments CHOLESTEROL (test code = 2210) 162 MG/DL TRIGLYCERIDES (test code = 2232) 387 MG/DL HDL CHOLESTEROL (test code = 2220) 30 MG/DL CALC LDL CHOL (test code = 2237) 80 MG/DL RISK RATIO LDL/HDL (test code = 2.67 RATIO 2238) LIPID [id number] 00:00:00 Test Item Value Reference Range Interpretation Comments CHOLESTEROL (test code = 2210) 162 MG/DL TRIGLYCERIDES (test code = 2232) 387 MG/DL HDL CHOLESTEROL (test code = 2220) 30 MG/DL CALC LDL CHOL (test code = 2237) 80 MG/DL RISK RATIO LDL/HDL (test code = 2.67 RATIO 2238) COMPREHENSIVE METABOLIC [id number] 00:00:00 Test Item Value Reference Range Interpretation Comments GLUCOSE (test code = 2217) 236 MG/DL BUN (test code = 2208) 14 MG/DL CREATININE (test code = 2214) 0.71 MG/DL eGFR AMER. (test code 122 ML/MIN/1.73 = 57129) eGFR NON- AMER. (test 105 ML/MIN/1.73 code = 28200) CALC BUN/CREAT (test code = 20 RATIO [...] code = 2219) 69 U/L COMPREHENSIVE METABOLIC [id number] 00:00:00 Test Item Value Reference Range Interpretation Comments GLUCOSE (test code = 2217) 236 MG/DL BUN (test code = 2208) 14 MG/DL CREATININE (test code = 2214) 0.71 MG/DL eGFR AMER. (test code 122 ML/MIN/1.73 = 16382) eGFR NON- AMER. (test 105 ML/MIN/1.73 code = 06011) CALC BUN/CREAT (test code = 20 RATIO [...] (test code = 2219) 69 U/L HEMOGLOBIN [id number] 00:00:00 Test Item Value Reference Range Interpretation Comments HEMOGLOBIN A1c (test code = 80479) 11.4 % HEMOGLOBIN [id number] 00:00:00 Test Item Value Reference Range Interpretation Comments HEMOGLOBIN A1c (test code = 89036) 11.4 % HEMOGLOBIN [id number] 00:00:00 Test Item Value Reference Range Interpretation Comments HEMOGLOBIN A1c (test code = 79306) 11.4 % LIPID [id number] 00:00:00 Test Item Value Reference Range Interpretation Comments CHOLESTEROL (test code = 2210) 162 MG/DL TRIGLYCERIDES (test code = 2232) 387 MG/DL HDL CHOLESTEROL (test code = 2220) 30 MG/DL CALC LDL CHOL (test code = 2237) 80 MG/DL RISK RATIO LDL/HDL (test code = 2.67 RATIO 2238) LIPID [id number] 00:00:00 Test Item Value Reference Range Interpretation Comments CHOLESTEROL (test code = 2210) 162 MG/DL TRIGLYCERIDES (test code = 2232) 387 MG/DL HDL CHOLESTEROL (test code = 2220) 30 MG/DL CALC LDL CHOL (test code = 2237) 80 MG/DL RISK RATIO LDL/HDL (test code = 2.67 RATIO 2238) COMPREHENSIVE METABOLIC [id number] 00:00:00 Test Item Value Reference Range Interpretation Comments GLUCOSE (test code = 2217) 236 MG/DL BUN (test code = 2208) 14 MG/DL CREATININE (test code = 2214) 0.71 MG/DL eGFR AMER. (test code 122 ML/MIN/1.73 = 47476) eGFR NON- AMER. (test 105 ML/MIN/1.73 code = 02623) CALC BUN/CREAT (test code = 20 RATIO [...] code = 2219) 69 U/L COMPREHENSIVE METABOLIC [id number] 00:00:00 Test Item Value Reference Range Interpretation Comments GLUCOSE (test code = 2217) 236 MG/DL BUN (test code = 2208) 14 MG/DL CREATININE (test code = 2214) 0.71 MG/DL eGFR AMER. (test code 122 ML/MIN/1.73 = 79952) eGFR NON- AMER. (test 105 ML/MIN/1.73 code = 37322) CALC BUN/CREAT (test code = 20 RATIO [...] (test code = 2219) 69 U/L HEMOGLOBIN [id number] 00:00:00 Test Item Value Reference Range Interpretation Comments HEMOGLOBIN A1c (test code = 17503) 11.4 % HEMOGLOBIN [id number] 00:00:00 Test Item Value Reference Range Interpretation Comments HEMOGLOBIN A1c (test code = 77441) 11.4 % HEMOGLOBIN [id number] 00:00:00 Test Item Value Reference Range Interpretation Comments HEMOGLOBIN A1c (test code = 94413) 11.4 % LIPID [id number] 00:00:00 Test Item Value Reference Range Interpretation Comments CHOLESTEROL (test code = 2210) 162 MG/DL TRIGLYCERIDES (test code = 2232) 387 MG/DL HDL CHOLESTEROL (test code = 2220) 30 MG/DL CALC LDL CHOL (test code = 2237) 80 MG/DL RISK RATIO LDL/HDL (test code = 2.67 RATIO 2238) LIPID [id number] 00:00:00 Test Item Value Reference Range Interpretation Comments CHOLESTEROL (test code = 2210) 162 MG/DL TRIGLYCERIDES (test code = 2232) 387 MG/DL HDL CHOLESTEROL (test code = 2220) 30 MG/DL CALC LDL CHOL (test code = 2237) 80 MG/DL RISK RATIO LDL/HDL (test code = 2.67 RATIO 2238) COMPREHENSIVE METABOLIC [id number] 00:00:00 Test Item Value Reference Range Interpretation Comments GLUCOSE (test code = 2217) 236 MG/DL BUN (test code = 2208) 14 MG/DL CREATININE (test code = 2214) 0.71 MG/DL eGFR AMER. (test code 122 ML/MIN/1.73 = 97281) eGFR NON- AMER. (test 105 ML/MIN/1.73 code = 17908) CALC BUN/CREAT (test code = 20 RATIO [...] code = 2219) 69 U/L COMPREHENSIVE METABOLIC [id number] 00:00:00 Test Item Value Reference Range Interpretation Comments GLUCOSE (test code = 2217) 236 MG/DL BUN (test code = 2208) 14 MG/DL CREATININE (test code = 2214) 0.71 MG/DL eGFR AMER. (test code 122 ML/MIN/1.73 = 27504) eGFR NON- AMER. (test 105 ML/MIN/1.73 code = 94673) CALC BUN/CREAT (test code = 20 RATIO [...] (test code = 2219) 69 U/L HEMOGLOBIN [id number] 00:00:00 Test Item Value Reference Range Interpretation Comments HEMOGLOBIN A1c (test code = 50408) 11.4 % HEMOGLOBIN [id number] 00:00:00 Test Item Value Reference Range Interpretation Comments HEMOGLOBIN A1c (test code = 72235) 11.4 % HEMOGLOBIN [id number] 00:00:00 Test Item Value Reference Range Interpretation Comments HEMOGLOBIN A1c (test code = 35737) 11.4 % LIPID [id number] 00:00:00 Test Item Value Reference Range Interpretation Comments CHOLESTEROL (test code = 2210) 162 MG/DL TRIGLYCERIDES (test code = 2232) 387 MG/DL HDL CHOLESTEROL (test code = 2220) 30 MG/DL CALC LDL CHOL (test code = 2237) 80 MG/DL RISK RATIO LDL/HDL (test code = 2.67 RATIO 2238) LIPID [id number] 00:00:00 Test Item Value Reference Range Interpretation Comments CHOLESTEROL (test code = 2210) 162 MG/DL TRIGLYCERIDES (test code = 2232) 387 MG/DL HDL CHOLESTEROL (test code = 2220) 30 MG/DL CALC LDL CHOL (test code = 2237) 80 MG/DL RISK RATIO LDL/HDL (test code = 2.67 RATIO 2238) COMPREHENSIVE METABOLIC [id number] 00:00:00 Test Item Value Reference Range Interpretation Comments GLUCOSE (test code = 2217) 236 MG/DL BUN (test code = 2208) 14 MG/DL CREATININE (test code = 2214) 0.71 MG/DL eGFR AMER. (test code 122 ML/MIN/1.73 = 60023) eGFR NON- AMER. (test 105 ML/MIN/1.73 code = 34442) CALC BUN/CREAT (test code = 20 RATIO [...] code = 2219) 69 U/L COMPREHENSIVE METABOLIC [id number] 00:00:00 Test Item Value Reference Range Interpretation Comments GLUCOSE (test code = 2217) 236 MG/DL BUN (test code = 2208) 14 MG/DL CREATININE (test code = 2214) 0.71 MG/DL eGFR AMER. (test code 122 ML/MIN/1.73 = 00173) eGFR NON- AMER. (test 105 ML/MIN/1.73 code = 34173) CALC BUN/CREAT (test code = 20 RATIO [...] (test code = 2219) 69 U/L HEMOGLOBIN [id number] 00:00:00 Test Item Value Reference Range Interpretation Comments HEMOGLOBIN A1c (test code = 35850) 11.4 % HEMOGLOBIN [id number] 00:00:00 Test Item Value Reference Range Interpretation Comments HEMOGLOBIN A1c (test code = 45128) 11.4 % HEMOGLOBIN [id number] 00:00:00 Test Item Value Reference Range Interpretation Comments HEMOGLOBIN A1c (test code = 07471) 11.4 % LIPID [id number] 00:00:00 Test Item Value Reference Range Interpretation Comments CHOLESTEROL (test code = 2210) 162 MG/DL TRIGLYCERIDES (test code = 2232) 387 MG/DL HDL CHOLESTEROL (test code = 2220) 30 MG/DL CALC LDL CHOL (test code = 2237) 80 MG/DL RISK RATIO LDL/HDL (test code = 2.67 RATIO 2238) LIPID [id number] 00:00:00 Test Item Value Reference Range Interpretation Comments CHOLESTEROL (test code = 2210) 162 MG/DL TRIGLYCERIDES (test code = 2232) 387 MG/DL HDL CHOLESTEROL (test code = 2220) 30 MG/DL CALC LDL CHOL (test code = 2237) 80 MG/DL RISK RATIO LDL/HDL (test code = 2.67 RATIO 2238) HEMOGLOBIN [id number] 00:00:00 Test Item Value Reference Range Interpretation Comments HEMOGLOBIN A1c (test code = 08686) 11.4 % COMPREHENSIVE METABOLIC [id number] 00:00:00 Test Item Value Reference Range Interpretation Comments GLUCOSE (test code = 2217) 236 MG/DL BUN (test code = 2208) 14 MG/DL CREATININE (test code = 2214) 0.71 MG/DL eGFR AMER. (test code 122 ML/MIN/1.73 = 48637) eGFR NON- AMER. (test 105 ML/MIN/1.73 code = 83267) CALC BUN/CREAT (test code = 20 RATIO [...] code = 2219) 69 U/L COMPREHENSIVE METABOLIC [id number] 00:00:00 Test Item Value Reference Range Interpretation Comments GLUCOSE (test code = 2217) 236 MG/DL BUN (test code = 2208) 14 MG/DL CREATININE (test code = 2214) 0.71 MG/DL eGFR AMER. (test code 122 ML/MIN/1.73 = 86604) eGFR NON- AMER. (test 105 ML/MIN/1.73 code = 31783) CALC BUN/CREAT (test code = 20 RATIO [...] (test code = 2219) 69 U/L HEMOGLOBIN [id number] 00:00:00 Test Item Value Reference Range Interpretation Comments HEMOGLOBIN A1c (test code = 42625) 11.4 % LIPID [id number] 00:00:00 Test Item Value Reference Range Interpretation Comments CHOLESTEROL (test code = 2210) 162 MG/DL TRIGLYCERIDES (test code = 2232) 387 MG/DL HDL CHOLESTEROL (test code = 2220) 30 MG/DL CALC LDL CHOL (test code = 2237) 80 MG/DL RISK RATIO LDL/HDL (test code = 2.67 RATIO 2238) COMPREHENSIVE METABOLIC [id number] 00:00:00 Test Item Value Reference Range Interpretation Comments GLUCOSE (test code = 2217) 236 MG/DL BUN (test code = 2208) 14 MG/DL CREATININE (test code = 2214) 0.71 MG/DL eGFR AMER. (test code 122 ML/MIN/1.73 = 18982) eGFR NON- AMER. (test 105 ML/MIN/1.73 code = 54955) CALC BUN/CREAT (test code = 20 RATIO [...] (test code = 2219) 69 U/L HEMOGLOBIN [id number] 00:00:00 Test Item Value Reference Range Interpretation Comments HEMOGLOBIN A1c (test code = 04205) 11.4 % HEMOGLOBIN [id number] 00:00:00 Test Item Value Reference Range Interpretation Comments HEMOGLOBIN A1c (test code = 93199) 11.4 % HEMOGLOBIN [id number] 00:00:00 Test Item Value Reference Range Interpretation Comments HEMOGLOBIN A1c (test code = 27368) 11.4 % LIPID [id number] 00:00:00 Test Item Value Reference Range Interpretation Comments CHOLESTEROL (test code = 2210) 162 MG/DL TRIGLYCERIDES (test code = 2232) 387 MG/DL HDL CHOLESTEROL (test code = 2220) 30 MG/DL CALC LDL CHOL (test code = 2237) 80 MG/DL RISK RATIO LDL/HDL (test code = 2.67 RATIO 2238) LIPID [id number] 00:00:00 Test Item Value Reference Range Interpretation Comments CHOLESTEROL (test code = 2210) 162 MG/DL TRIGLYCERIDES (test code = 2232) 387 MG/DL HDL CHOLESTEROL (test code = 2220) 30 MG/DL CALC LDL CHOL (test code = 2237) 80 MG/DL RISK RATIO LDL/HDL (test code = 2.67 RATIO 2238) COMPREHENSIVE METABOLIC [id number] 00:00:00 Test Item Value Reference Range Interpretation Comments GLUCOSE (test code = 2217) 236 MG/DL BUN (test code = 2208) 14 MG/DL CREATININE (test code = 2214) 0.71 MG/DL eGFR AMER. (test code 122 ML/MIN/1.73 = 01953) eGFR NON- AMER. (test 105 ML/MIN/1.73 code = 73846) CALC BUN/CREAT (test code = 20 RATIO [...] code = 2219) 69 U/L COMPREHENSIVE METABOLIC [id number] 00:00:00 Test Item Value Reference Range Interpretation Comments GLUCOSE (test code = 2217) 236 MG/DL BUN (test code = 2208) 14 MG/DL CREATININE (test code = 2214) 0.71 MG/DL eGFR AMER. (test code 122 ML/MIN/1.73 = 48678) eGFR NON- AMER. (test 105 ML/MIN/1.73 code = 51782) CALC BUN/CREAT (test code = 20 RATIO [...] (test code = 2219) 69 U/L HEMOGLOBIN [id number] 00:00:00 Test Item Value Reference Range Interpretation Comments HEMOGLOBIN A1c (test code = 93359) 11.4 % HEMOGLOBIN [id number] 00:00:00 Test Item Value Reference Range Interpretation Comments HEMOGLOBIN A1c (test code = 62042) 11.4 % HEMOGLOBIN [id number] 00:00:00 Test Item Value Reference Range Interpretation Comments HEMOGLOBIN A1c (test code = 35497) 11.4 % LIPID [id number] 00:00:00 Test Item Value Reference Range Interpretation Comments CHOLESTEROL (test code = 2210) 162 MG/DL TRIGLYCERIDES (test code = 2232) 387 MG/DL HDL CHOLESTEROL (test code = 2220) 30 MG/DL CALC LDL CHOL (test code = 2237) 80 MG/DL RISK RATIO LDL/HDL (test code = 2.67 RATIO 2238) LIPID [id number] 00:00:00 Test Item Value Reference Range Interpretation Comments CHOLESTEROL (test code = 2210) 162 MG/DL TRIGLYCERIDES (test code = 2232) 387 MG/DL HDL CHOLESTEROL (test code = 2220) 30 MG/DL CALC LDL CHOL (test code = 2237) 80 MG/DL RISK RATIO LDL/HDL (test code = 2.67 RATIO 2238) COMPREHENSIVE METABOLIC [id number] 00:00:00 Test Item Value Reference Range Interpretation Comments GLUCOSE (test code = 2217) 236 MG/DL BUN (test code = 2208) 14 MG/DL CREATININE (test code = 2214) 0.71 MG/DL eGFR AMER. (test code 122 ML/MIN/1.73 = 32340) eGFR NON- AMER. (test 105 ML/MIN/1.73 code = 34356) CALC BUN/CREAT (test code = 20 RATIO [...] code = 2219) 69 U/L COMPREHENSIVE METABOLIC [id number] 00:00:00 Test Item Value Reference Range Interpretation Comments GLUCOSE (test code = 2217) 236 MG/DL BUN (test code = 2208) 14 MG/DL CREATININE (test code = 2214) 0.71 MG/DL eGFR AMER. (test code 122 ML/MIN/1.73 = 52272) eGFR NON- AMER. (test 105 ML/MIN/1.73 code = 41624) CALC BUN/CREAT (test code = 20 RATIO [...] (test code = 2219) 69 U/L HEMOGLOBIN [id number] 00:00:00 Test Item Value Reference Range Interpretation Comments HEMOGLOBIN A1c (test code = 77074) 11.4 % HEMOGLOBIN [id number] 00:00:00 Test Item Value Reference Range Interpretation Comments HEMOGLOBIN A1c (test code = 23620) 11.4 % HEMOGLOBIN [id number] 00:00:00 Test Item Value Reference Range Interpretation Comments HEMOGLOBIN A1c (test code = 72366) 11.4 % LIPID [id number] 00:00:00 Test Item Value Reference Range Interpretation Comments CHOLESTEROL (test code = 2210) 162 MG/DL TRIGLYCERIDES (test code = 2232) 387 MG/DL HDL CHOLESTEROL (test code = 2220) 30 MG/DL CALC LDL CHOL (test code = 2237) 80 MG/DL RISK RATIO LDL/HDL (test code = 2.67 RATIO 2238) LIPID [id number] 00:00:00 Test Item Value Reference Range Interpretation Comments CHOLESTEROL (test code = 2210) 162 MG/DL TRIGLYCERIDES (test code = 2232) 387 MG/DL HDL CHOLESTEROL (test code = 2220) 30 MG/DL CALC LDL CHOL (test code = 2237) 80 MG/DL RISK RATIO LDL/HDL (test code = 2.67 RATIO 2238) COMPREHENSIVE METABOLIC [id number] 00:00:00 Test Item Value Reference Range Interpretation Comments GLUCOSE (test code = 2217) 236 MG/DL BUN (test code = 2208) 14 MG/DL CREATININE (test code = 2214) 0.71 MG/DL eGFR AMER. (test code 122 ML/MIN/1.73 = 79471) eGFR NON- AMER. (test 105 ML/MIN/1.73 code = 31195) CALC BUN/CREAT (test code = 20 RATIO [...] code = 2219) 69 U/L COMPREHENSIVE METABOLIC [id number] 00:00:00 Test Item Value Reference Range Interpretation Comments GLUCOSE (test code = 2217) 236 MG/DL BUN (test code = 2208) 14 MG/DL CREATININE (test code = 2214) 0.71 MG/DL eGFR AMER. (test code 122 ML/MIN/1.73 = 05195) eGFR NON- AMER. (test 105 ML/MIN/1.73 code = 56343) CALC BUN/CREAT (test code = 20 RATIO [...] U/L - CT UP EXTREM W/O CONT [id number] 08:37:00 [facility] : 1980 Sex: F PatientName: MARGE FRANCO Unit No: [id number] EXAMS: CPT CODE: [id number] [place] EXTREM W/[place] [address] [place] SCAN LEFT WRIST WITH RECONSTRUCTION DIAGNOSIS: [...] with ACR practice standards and adherence to civil laboratory technician's recommendations. INDICATION: LEFT WRIST SPRAIN, POSSIBLE SCAPHOID FRACTURE COMPARISON: None. COMMENT: Findings are as described above. at 0837 Reported and signed by: America Schuler MD CC: Bebeto Quiroga MD Technologist: KAVEH WYMAN MRI CTDI: DLP: Trnscrpt: 08/11/2020 (0837) [email or web address] [facility] NAME: FRANCODYLANMAR[address] PHYS: Bebeto Valiente MD : 1980 AGE: 40 SEX: F [place] [address] LOC: Y.RAD PHONE #: [phone] EXAM DATE: 08/08/2020 STATUS: DEP CLI FAX #: [phone] RAD #: D/C DT PAGE 1 Signed Report Patient Name: MARGE FRANCO Unit No: [id number] EXAMS: CPT CODE: [id number] CT UP EXTREM W/[place] [address] (Continued) Orig Print D/T: S: 08/11/2020 (0840) [facility] NAME: MARGE FRANCO [address] [place] [address] PHYS: Bebeto Crespo MD : 1980 AGE: 40 SEX: F [place] [address] LOC: Y.RAD PHONE #: [phone] EXAM DATE: 08/08/2020 STATUS: DEP CLI FAX #: [phone] RAD #: D/C DT PAGE 2 Signed ReportCULTURE, [id number] 00:00:00 Test Item Value Reference Range Interpretation Comments CULTURE, URINE (test SPECIMEN NUMBER: code = 38341) [id number] CULTURE, [id number] 00:00:00 Test Item Value Reference Range Interpretation Comments CULTURE, URINE (test SPECIMEN NUMBER: code = 48648) [id number] CULTURE, [id number] 00:00:00 Test Item Value Reference Range Interpretation Comments CULTURE, URINE (test SPECIMEN NUMBER: code = 41118) [id number] CULTURE, [id number] 00:00:00 Test Item Value Reference Range Interpretation Comments CULTURE, URINE (test SPECIMEN NUMBER: code = 06263) [id number] CULTURE, [id number] 00:00:00 Test Item Value Reference Range Interpretation Comments CULTURE, URINE (test SPECIMEN NUMBER: code = 53653) [id number] CULTURE, [id number] 00:00:00 Test Item Value Reference Range Interpretation Comments CULTURE, URINE (test SPECIMEN NUMBER: code = 80339) [id number] CULTURE, [id number] 00:00:00 Test Item Value Reference Range Interpretation Comments CULTURE, URINE (test SPECIMEN NUMBER: code = 92281) [id number] CULTURE, [id number] 00:00:00 Test Item Value Reference Range Interpretation Comments CULTURE, URINE (test SPECIMEN NUMBER: code = 02520) [id number] CULTURE, [id number] 00:00:00 Test Item Value Reference Range Interpretation Comments CULTURE, URINE (test SPECIMEN NUMBER: code = 14706) [id number] CULTURE, [id number] 00:00:00 Test Item Value Reference Range Interpretation Comments CULTURE, URINE (test SPECIMEN NUMBER: code = 41920) [id number] CULTURE, [id number] 00:00:00 Test Item Value Reference Range Interpretation Comments CULTURE, URINE (test SPECIMEN NUMBER: code = 30060) [id number] CULTURE, [id number] 00:00:00 Test Item Value Reference Range Interpretation Comments CULTURE, URINE (test SPECIMEN NUMBER: code = 90826) [id number] CULTURE, [id number] 00:00:00 Test Item Value Reference Range Interpretation Comments CULTURE, URINE (test SPECIMEN NUMBER: code = 74486) [id number] CULTURE, [id number] 00:00:00 Test Item Value Reference Range Interpretation Comments CULTURE, URINE (test SPECIMEN NUMBER: code = 36458) [id number] CULTURE, [id number] 00:00:00 Test Item Value Reference Range Interpretation Comments CULTURE, URINE (test SPECIMEN NUMBER: code = 34103) [id number] CULTURE, [id number] 00:00:00 Test Item Value Reference Range Interpretation Comments CULTURE, URINE (test SPECIMEN NUMBER: code = 64149) [id number] CULTURE, [id number] 00:00:00 Test Item Value Reference Range Interpretation Comments CULTURE, URINE (test SPECIMEN NUMBER: code = 24591) [id number] CULTURE, [id number] 00:00:00 Test Item Value Reference Range Interpretation Comments CULTURE, URINE (test SPECIMEN NUMBER: code = 57384) [id number] CULTURE, [id number] 00:00:00 Test Item Value Reference Range Interpretation Comments CULTURE, URINE (test SPECIMEN NUMBER: code = 34476) [id number] CULTURE, [id number] 00:00:00 Test Item Value Reference Range Interpretation Comments CULTURE, URINE (test SPECIMEN NUMBER: code = 82177) [id number] CULTURE, [id number] 00:00:00 Test Item Value Reference Range Interpretation Comments CULTURE, URINE (test SPECIMEN NUMBER: code = 38915) [id number] VAGINAL PATHOGENS DNA [id number] 00:00:00 Test Item Value Reference Range Interpretation Comments ANDIE SPECIES (test code = ) NEGATIVE G. VAGINALIS (test code = 14683) NEGATIVE T. VAGINALIS (test code = ) NEGATIVE VAGINAL PATHOGENS DNA [id number] 00:00:00 Test Item Value Reference Range Interpretation Comments ANDIE SPECIES (test code = ) NEGATIVE G. VAGINALIS (test code = 11314) NEGATIVE T. VAGINALIS (test code = 94404) NEGATIVE VAGINAL PATHOGENS DNA [id number] 00:00:00 Test Item Value Reference Range Interpretation Comments ANDIE SPECIES (test code = ) NEGATIVE G. VAGINALIS (test code = 82074) NEGATIVE T. VAGINALIS (test code = 40579) NEGATIVE VAGINAL PATHOGENS DNA [id number] 00:00:00 Test Item Value Reference Range Interpretation Comments ANDIE SPECIES (test code = 17412) NEGATIVE G. VAGINALIS (test code = 83567) NEGATIVE T. VAGINALIS (test code = 66652) NEGATIVE VAGINAL PATHOGENS DNA [id number] 00:00:00 Test Item Value Reference Range Interpretation Comments ANDIE SPECIES (test code = 89117) NEGATIVE G. VAGINALIS (test code = 23521) NEGATIVE T. VAGINALIS (test code = 80627) NEGATIVE VAGINAL PATHOGENS DNA [id number] 00:00:00 Test Item Value Reference Range Interpretation Comments ANDIE SPECIES (test code = 96860) NEGATIVE G. VAGINALIS (test code = 19222) NEGATIVE T. VAGINALIS (test code = 95461) NEGATIVE VAGINAL PATHOGENS DNA [id number] 00:00:00 Test Item Value Reference Range Interpretation Comments ANDIE SPECIES (test code = ) NEGATIVE G. VAGINALIS (test code = 85517) NEGATIVE T. VAGINALIS (test code = 82320) NEGATIVE VAGINAL PATHOGENS DNA [id number] 00:00:00 Test Item Value Reference Range Interpretation Comments ANDIE SPECIES (test code = 21830) NEGATIVE G. VAGINALIS (test code = 40944) NEGATIVE T. VAGINALIS (test code = 21025) NEGATIVE VAGINAL PATHOGENS DNA [id number] 00:00:00 Test Item Value Reference Range Interpretation Comments ANDIE SPECIES (test code = 70408) NEGATIVE G. VAGINALIS (test code = 41848) NEGATIVE T. VAGINALIS (test code = 42700) NEGATIVE VAGINAL PATHOGENS DNA [id number] 00:00:00 Test Item Value Reference Range Interpretation Comments ANDIE SPECIES (test code = 56383) NEGATIVE G. VAGINALIS (test code = 08530) NEGATIVE T. VAGINALIS (test code = 19423) NEGATIVE VAGINAL PATHOGENS DNA [id number] 00:00:00 Test Item Value Reference Range Interpretation Comments ANDIE SPECIES (test code = 98057) NEGATIVE G. VAGINALIS (test code = 62979) NEGATIVE T. VAGINALIS (test code = 03962) NEGATIVE VAGINAL PATHOGENS DNA [id number] 00:00:00 Test Item Value Reference Range Interpretation Comments ANDIE SPECIES (test code = 21682) NEGATIVE G. VAGINALIS (test code = 31712) NEGATIVE T. VAGINALIS (test code = 19831) NEGATIVE VAGINAL PATHOGENS DNA [id number] 00:00:00 Test Item Value Reference Range Interpretation Comments ANDIE SPECIES (test code = 34045) NEGATIVE G. VAGINALIS (test code = 52753) NEGATIVE T. VAGINALIS (test code = 94790) NEGATIVE VAGINAL PATHOGENS DNA [id number] 00:00:00 Test Item Value Reference Range Interpretation Comments ANDIE SPECIES (test code = 62212) NEGATIVE G. VAGINALIS (test code = 77712) NEGATIVE T. VAGINALIS (test code = 38897) NEGATIVE VAGINAL PATHOGENS DNA [id number] 00:00:00 Test Item Value Reference Range Interpretation Comments ANDIE SPECIES (test code = 05982) NEGATIVE G. VAGINALIS (test code = 67599) NEGATIVE T. VAGINALIS (test code = 13392) NEGATIVE VAGINAL PATHOGENS DNA [id number] 00:00:00 Test Item Value Reference Range Interpretation Comments ANDIE SPECIES (test code = 50465) NEGATIVE G. VAGINALIS (test code = 82901) NEGATIVE T. VAGINALIS (test code = 87050) NEGATIVE VAGINAL PATHOGENS DNA [id number] 00:00:00 Test Item Value Reference Range Interpretation Comments ANDIE SPECIES (test code = 78275) NEGATIVE G. VAGINALIS (test code = 71016) NEGATIVE T. VAGINALIS (test code = 58104) NEGATIVE VAGINAL PATHOGENS DNA [id number] 00:00:00 Test Item Value Reference Range Interpretation Comments ANDIE SPECIES (test code = 77419) NEGATIVE G. VAGINALIS (test code = 10129) NEGATIVE T. VAGINALIS (test code = 13180) NEGATIVE VAGINAL PATHOGENS DNA [id number] 00:00:00 Test Item Value Reference Range Interpretation Comments ANDIE SPECIES (test code = 29224) NEGATIVE G. VAGINALIS (test code = 22647) NEGATIVE T. VAGINALIS (test code = 15120) NEGATIVE VAGINAL PATHOGENS DNA [id number] 00:00:00 Test Item Value Reference Range Interpretation Comments ANDIE SPECIES (test code = 24030) NEGATIVE G. VAGINALIS (test code = 06191) NEGATIVE T. VAGINALIS (test code = 50753) NEGATIVE VAGINAL PATHOGENS DNA [id number] 00:00:00 Test Item Value Reference Range Interpretation Comments ANDIE SPECIES (test code = 16557) NEGATIVE G. VAGINALIS (test code = 20106) NEGATIVE T. VAGINALIS (test code = 58036) NEGATIVE - XR FOREARM 2 VIEWS [id number] 09:10:00 [facility] : 1980 Sex: F PatientName: MARGE FRANCO Unit No: [id number] EXAMS: CPT CODE: [id number] XR FORE[place] [address] [place] [address] Left forearm and wrist 4 views COMMENT: There is no evidence for fracture or subluxation. No focal bonylesions are seen. at 0910 Reported and signed by: Prasad Marina MD CC: Rafy Ferguson MD Technologist: Marie Johnson(R) Transcribed D/ (0910) MickeyL [facility] NAME: MARGE FRANCO [address] [facility] PHYS: HAMST.01 - Rafy Ferguson : 1980 AGE: 40 SEX: F [place], [place] [address] LOC: TEOFILO PHONE #: [phone] EXAM DATE: 08/02/2020 STATUS: DEP ER FAX #: [phone] RAD #: D/C DT PAGE 1 Signed Report Patient Name: MARGE FRANCO Unit No: [id number] EXAMS: CPT CODE: [id number] XR FORE[place] [address] [place] [address] (Continued) Orig Print D/T: S: 08/04/2020(0914) [facility] NAME: MARGE FRANCO [address] [facility] [address] PHYS: NAYLA Miky Rafy Ferguson Erin : 1980 AGE: 40 SEX: F [place], [place] [address] LOC: TEOFILO PHONE #:[phone] EXAM DATE: 08/02/2020 STATUS: DEP ER FAX #: [phone] RAD #: D/C DT PAGE 2 Signed ReportCULTURE, [id number] 00:00:00 Test Item Value Reference Range Interpretation Comments CULTURE, URINE (test SPECIMEN NUMBER: code = 30393) [id number] CULTURE, [id number] 00:00:00 Test Item Value Reference Range Interpretation Comments CULTURE, URINE (test SPECIMEN NUMBER: code = 27929) [id number] CULTURE, [id number] 00:00:00 Test Item Value Reference Range Interpretation Comments CULTURE, URINE (test SPECIMEN NUMBER: code = 61388) [id number] CULTURE, [id number] 00:00:00 Test Item Value Reference Range Interpretation Comments CULTURE, URINE (test SPECIMEN NUMBER: code = 00210) [id number] CULTURE, [id number] 00:00:00 Test Item Value Reference Range Interpretation Comments CULTURE, URINE (test SPECIMEN NUMBER: code = 06644) [id number] CULTURE, [id number] 00:00:00 Test Item Value Reference Range Interpretation Comments CULTURE, URINE (test SPECIMEN NUMBER: code = 70190) [id number] CULTURE, [id number] 00:00:00 Test Item Value Reference Range Interpretation Comments CULTURE, URINE (test SPECIMEN NUMBER: code = 58534) [id number] CULTURE, [id number] 00:00:00 Test Item Value Reference Range Interpretation Comments CULTURE, URINE (test SPECIMEN NUMBER: code = 79494) [id number] CULTURE, [id number] 00:00:00 Test Item Value Reference Range Interpretation Comments CULTURE, URINE (test SPECIMEN NUMBER: code = 12742) [id number] CULTURE, [id number] 00:00:00 Test Item Value Reference Range Interpretation Comments CULTURE, URINE (test SPECIMEN NUMBER: code = 35098) [id number] CULTURE, [id number] 00:00:00 Test Item Value Reference Range Interpretation Comments CULTURE, URINE (test SPECIMEN NUMBER: code = 73893) [id number] CULTURE, [id number] 00:00:00 Test Item Value Reference Range Interpretation Comments CULTURE, URINE (test SPECIMEN NUMBER: code = 54238) [id number] CULTURE, [id number] 00:00:00 Test Item Value Reference Range Interpretation Comments CULTURE, URINE (test SPECIMEN NUMBER: code = 07257) [id number] CULTURE, [id number] 00:00:00 Test Item Value Reference Range Interpretation Comments CULTURE, URINE (test SPECIMEN NUMBER: code = 34361) [id number] CULTURE, [id number] 00:00:00 Test Item Value Reference Range Interpretation Comments CULTURE, URINE (test SPECIMEN NUMBER: code = 50447) [id number] CULTURE, [id number] 00:00:00 Test Item Value Reference Range Interpretation Comments CULTURE, URINE (test SPECIMEN NUMBER: code = 07128) [id number] CULTURE, [id number] 00:00:00 Test Item Value Reference Range Interpretation Comments CULTURE, URINE (test SPECIMEN NUMBER: code = 05896) [id number] CULTURE, [id number] 00:00:00 Test Item Value Reference Range Interpretation Comments CULTURE, URINE (test SPECIMEN NUMBER: code = 02850) [id number] CULTURE, [id number] 00:00:00 Test Item Value Reference Range Interpretation Comments CULTURE, URINE (test SPECIMEN NUMBER: code = 62577) [id number] CULTURE, [id number] 00:00:00 Test Item Value Reference Range Interpretation Comments CULTURE, URINE (test SPECIMEN NUMBER: code = 93613) [id number] CULTURE, [id number] 00:00:00 Test Item Value Reference Range Interpretation Comments CULTURE, URINE (test SPECIMEN NUMBER: code = 90241) [id number] SARS-CoV-2 (COVID-19) by RT-PCR (HIGH RISK)2020-04-23 00:00:00 Test Item Value Reference Range Interpretation Comments SARS-CoV-2 INTERPRETATION Negative (test code = 38015) SOURCE (test code = 97915) Nasal_Swab_in_VTM__ UTM SARS-CoV-2 (COVID-19) by RT-PCR (HIGH RISK)2020-04-23 00:00:00 Test Item Value Reference Range Interpretation Comments SARS-CoV-2 INTERPRETATION Negative (test code = 94508) SOURCE (test code = 23812) Nasal_Swab_in_VTM__ UTM SARS-CoV-2 (COVID-19) by RT-PCR (HIGH RISK)2020-04-23 00:00:00 Test Item Value Reference Range Interpretation Comments SARS-CoV-2 INTERPRETATION Negative (test code = 72761) SOURCE (test code = 49490) Nasal_Swab_in_VTM__ UTM SARS-CoV-2 (COVID-19) by RT-PCR (HIGH RISK)2020-04-23 00:00:00 Test Item Value Reference Range Interpretation Comments SARS-CoV-2 INTERPRETATION Negative (test code = 36366) SOURCE (test code = 83312) Nasal_Swab_in_VTM__ UTM SARS-CoV-2 (COVID-19) by RT-PCR (HIGH RISK)2020-04-23 00:00:00 Test Item Value Reference Range Interpretation Comments SARS-CoV-2 INTERPRETATION Negative (test code = 72655) SOURCE (test code = 09121) Nasal_Swab_in_VTM__ UTM SARS-CoV-2 (COVID-19) by RT-PCR (HIGH RISK)2020-04-23 00:00:00 Test Item Value Reference Range Interpretation Comments SARS-CoV-2 INTERPRETATION Negative (test code = 40263) SOURCE (test code = 99141) Nasal_Swab_in_VTM__ UTM SARS-CoV-2 (COVID-19) by RT-PCR (HIGH RISK)2020-04-23 00:00:00 Test Item Value Reference Range Interpretation Comments SARS-CoV-2 INTERPRETATION Negative (test code = 40975) SOURCE (test code = 22539) Nasal_Swab_in_VTM__ UTM SARS-CoV-2 (COVID-19) by RT-PCR (HIGH RISK)2020-04-23 00:00:00 Test Item Value Reference Range Interpretation Comments SARS-CoV-2 INTERPRETATION Negative (test code = 75673) SOURCE (test code = 36861) Nasal_Swab_in_VTM__ UTM SARS-CoV-2 (COVID-19) by RT-PCR (HIGH RISK)2020-04-23 00:00:00 Test Item Value Reference Range Interpretation Comments SARS-CoV-2 INTERPRETATION Negative (test code = 52598) SOURCE (test code = 02333) Nasal_Swab_in_VTM__ UTM SARS-CoV-2 (COVID-19) by RT-PCR (HIGH RISK)2020-04-23 00:00:00 Test Item Value Reference Range Interpretation Comments SARS-CoV-2 INTERPRETATION Negative (test code = 48606) SOURCE (test code = 59067) Nasal_Swab_in_VTM__ UTM SARS-CoV-2 (COVID-19) by RT-PCR (HIGH RISK)2020-04-23 00:00:00 Test Item Value Reference Range Interpretation Comments SARS-CoV-2 INTERPRETATION Negative (test code = 12873) SOURCE (test code = 76199) Nasal_Swab_in_VTM__ UTM COMPREHENSIVE METABOLIC [id number] 00:00:00 Test Item Value Reference Range Interpretation Comments GLUCOSE (test code = 2217) 217 MG/DL BUN (test code = 2208) 13 MG/DL CREATININE (test code = 2214) 0.64 MG/DL eGFR AMER. (test code 128 ML/MIN/1.73 = 54708) eGFR NON- AMER. (test 110 ML/MIN/1.73 code = 69036) CALC BUN/CREAT (test code = 20 RATIO [...] (test code = 2219) 47 U/L CULTURE, [id number] 00:00:00 Test Item Value Reference Range Interpretation Comments CULTURE, URINE (test SPECIMEN NUMBER: code = 63990) [id number] COMPREHENSIVE METABOLIC [id number] 00:00:00 Test Item Value Reference Range Interpretation Comments GLUCOSE (test code = 2217) 217 MG/DL BUN (test code = 2208) 13 MG/DL CREATININE (test code = 2214) 0.64 MG/DL eGFR AMER. (test code 128 ML/MIN/1.73 = 09918) eGFR NON- AMER. (test 110 ML/MIN/1.73 code = 59467) CALC BUN/CREAT (test code = 20 RATIO [...] (test code = 2219) 47 U/L CULTURE, [id number] 00:00:00 Test Item Value Reference Range Interpretation Comments CULTURE, URINE (test SPECIMEN NUMBER: code = 75706) [id number] LIPID [id number] 00:00:00 Test Item Value Reference Range Interpretation Comments CHOLESTEROL (test code = 2210) 220 MG/DL TRIGLYCERIDES (test code = 2232) 873 MG/DL HDL CHOLESTEROL (test code = 30 MG/DL 2220) CALC LDL CHOL (test code = 2237) (NOTE) MG/DL RISK RATIO LDL/HDL (test code = (NOTE) RATIO 2238) LIPID [id number] 00:00:00 Test Item Value Reference Range Interpretation Comments CHOLESTEROL (test code = 2210) 220 MG/DL TRIGLYCERIDES (test code = 2232) 873 MG/DL HDL CHOLESTEROL (test code = 30 MG/DL 2219) CALC LDL CHOL (test code = 2237) (NOTE) MG/DL RISK RATIO LDL/HDL (test code = (NOTE) RATIO 2238) HEMOGLOBIN [id number] 00:00:00 Test Item Value Reference Range Interpretation Comments HEMOGLOBIN A1c (test code = 12053) 10.9 % HEMOGLOBIN [id number] 00:00:00 Test Item Value Reference Range Interpretation Comments HEMOGLOBIN A1c (test code = 22073) 10.9 % HEMOGLOBIN [id number] 00:00:00 Test Item Value Reference Range Interpretation Comments HEMOGLOBIN A1c (test code = 68128) 10.9 % COMPREHENSIVE METABOLIC [id number] 00:00:00 Test Item Value Reference Range Interpretation Comments GLUCOSE (test code = 2217) 217 MG/DL BUN (test code = 2208) 13 MG/DL CREATININE (test code = 2214) 0.64 MG/DL eGFR AMER. (test code 128 ML/MIN/1.73 = 60585) eGFR NON- AMER. (test 110 ML/MIN/1.73 code = 81871) CALC BUN/CREAT (test code = 20 RATIO [...] code = 2219) 47 U/L COMPREHENSIVE METABOLIC [id number] 00:00:00 Test Item Value Reference Range Interpretation Comments GLUCOSE (test code = 2217) 217 MG/DL BUN (test code = 2208) 13 MG/DL CREATININE (test code = 2214) 0.64 MG/DL eGFR AMER. (test code 128 ML/MIN/1.73 = 80063) eGFR NON- AMER. (test 110 ML/MIN/1.73 code = 58349) CALC BUN/CREAT (test code = 20 RATIO [...] (test code = 2219) 47 U/L CULTURE, [id number] 00:00:00 Test Item Value Reference Range Interpretation Comments CULTURE, URINE (test SPECIMEN NUMBER: code = 83634) [id number] CULTURE, [id number] 00:00:00 Test Item Value Reference Range Interpretation Comments CULTURE, URINE (test SPECIMEN NUMBER: code = 71338) [id number] LIPID [id number] 00:00:00 Test Item Value Reference Range Interpretation Comments CHOLESTEROL (test code = 2210) 220 MG/DL TRIGLYCERIDES (test code = 2232) 873 MG/DL HDL CHOLESTEROL (test code = 30 MG/DL 2220) CALC LDL CHOL (test code = 2237) (NOTE) MG/DL RISK RATIO LDL/HDL (test code = (NOTE) RATIO 2238) LIPID [id number] 00:00:00 Test Item Value Reference Range Interpretation Comments CHOLESTEROL (test code = 2210) 220 MG/DL TRIGLYCERIDES (test code = 2232) 873 MG/DL HDL CHOLESTEROL (test code = 30 MG/DL 2220) CALC LDL CHOL (test code = 2237) (NOTE) MG/DL RISK RATIO LDL/HDL (test code = (NOTE) RATIO 2238) HEMOGLOBIN [id number] 00:00:00 Test Item Value Reference Range Interpretation Comments HEMOGLOBIN A1c (test code = 77797) 10.9 % HEMOGLOBIN [id number] 00:00:00 Test Item Value Reference Range Interpretation Comments HEMOGLOBIN A1c (test code = 40147) 10.9 % HEMOGLOBIN [id number] 00:00:00 Test Item Value Reference Range Interpretation Comments HEMOGLOBIN A1c (test code = 39753) 10.9 % CULTURE, [id number] 00:00:00 Test Item Value Reference Range Interpretation Comments CULTURE, URINE (test SPECIMEN NUMBER: code = 32259) [id number] CULTURE, [id number] 00:00:00 Test Item Value Reference Range Interpretation Comments CULTURE, URINE (test SPECIMEN NUMBER: code = 04491) [id number] COMPREHENSIVE METABOLIC [id number] 00:00:00 Test Item Value Reference Range Interpretation Comments GLUCOSE (test code = 2217) 217 MG/DL BUN (test code = 2208) 13 MG/DL CREATININE (test code = 2214) 0.64 MG/DL eGFR AMER. (test code 128 ML/MIN/1.73 = 04963) eGFR NON- AMER. (test 110 ML/MIN/1.73 code = 52316) CALC BUN/CREAT (test code = 20 RATIO [...] code = 2219) 47 U/L COMPREHENSIVE METABOLIC [id number] 00:00:00 Test Item Value Reference Range Interpretation Comments GLUCOSE (test code = 2217) 217 MG/DL BUN (test code = 2208) 13 MG/DL CREATININE (test code = 2214) 0.64 MG/DL eGFR AMER. (test code 128 ML/MIN/1.73 = 41413) eGFR NON- AMER. (test 110 ML/MIN/1.73 code = 21111) CALC BUN/CREAT (test code = 20 RATIO [...] (test code = 2219) 47 U/L LIPID [id number] 00:00:00 Test Item Value Reference Range Interpretation Comments CHOLESTEROL (test code = 2210) 220 MG/DL TRIGLYCERIDES (test code = 2232) 873 MG/DL HDL CHOLESTEROL (test code = 30 MG/DL 2220) CALC LDL CHOL (test code = 2237) (NOTE) MG/DL RISK RATIO LDL/HDL (test code = (NOTE) RATIO 2238) LIPID [id number] 00:00:00 Test Item Value Reference Range Interpretation Comments CHOLESTEROL (test code = 2210) 220 MG/DL TRIGLYCERIDES (test code = 2232) 873 MG/DL HDL CHOLESTEROL (test code = 30 MG/DL 2220) CALC LDL CHOL (test code = 2237) (NOTE) MG/DL RISK RATIO LDL/HDL (test code = (NOTE) RATIO 2238) HEMOGLOBIN [id number] 00:00:00 Test Item Value Reference Range Interpretation Comments HEMOGLOBIN A1c (test code = 82229) 10.9 % HEMOGLOBIN [id number] 00:00:00 Test Item Value Reference Range Interpretation Comments HEMOGLOBIN A1c (test code = 40710) 10.9 % HEMOGLOBIN [id number] 00:00:00 Test Item Value Reference Range Interpretation Comments HEMOGLOBIN A1c (test code = 66685) 10.9 % CULTURE, [id number] 00:00:00 Test Item Value Reference Range Interpretation Comments CULTURE, URINE (test SPECIMEN NUMBER: code = 34187) [id number] COMPREHENSIVE METABOLIC [id number] 00:00:00 Test Item Value Reference Range Interpretation Comments GLUCOSE (test code = 2217) 217 MG/DL BUN (test code = 2208) 13 MG/DL CREATININE (test code = 2214) 0.64 MG/DL eGFR AMER. (test code 128 ML/MIN/1.73 = 10504) eGFR NON- AMER. (test 110 ML/MIN/1.73 code = 14229) CALC BUN/CREAT (test code = 20 RATIO [...] code = 2219) 47 U/L COMPREHENSIVE METABOLIC [id number] 00:00:00 Test Item Value Reference Range Interpretation Comments GLUCOSE (test code = 2217) 217 MG/DL BUN (test code = 2208) 13 MG/DL CREATININE (test code = 2214) 0.64 MG/DL eGFR AMER. (test code 128 ML/MIN/1.73 = 11489) eGFR NON- AMER. (test 110 ML/MIN/1.73 code = 46819) CALC BUN/CREAT (test code = 20 RATIO [...] (test code = 2219) 47 U/L CULTURE, [id number] 00:00:00 Test Item Value Reference Range Interpretation Comments CULTURE, URINE (test SPECIMEN NUMBER: code = 74749) [id number] LIPID [id number] 00:00:00 Test Item Value Reference Range Interpretation Comments CHOLESTEROL (test code = 2210) 220 MG/DL TRIGLYCERIDES (test code = 2232) 873 MG/DL HDL CHOLESTEROL (test code = 30 MG/DL 2220) CALC LDL CHOL (test code = 2237) (NOTE) MG/DL RISK RATIO LDL/HDL (test code = (NOTE) RATIO 2238) LIPID [id number] 00:00:00 Test Item Value Reference Range Interpretation Comments CHOLESTEROL (test code = 2210) 220 MG/DL TRIGLYCERIDES (test code = 2232) 873 MG/DL HDL CHOLESTEROL (test code = 30 MG/DL 2220) CALC LDL CHOL (test code = 2237) (NOTE) MG/DL RISK RATIO LDL/HDL (test code = (NOTE) RATIO 2238) HEMOGLOBIN [id number] 00:00:00 Test Item Value Reference Range Interpretation Comments HEMOGLOBIN A1c (test code = 05828) 10.9 % HEMOGLOBIN [id number] 00:00:00 Test Item Value Reference Range Interpretation Comments HEMOGLOBIN A1c (test code = 17189) 10.9 % HEMOGLOBIN [id number] 00:00:00 Test Item Value Reference Range Interpretation Comments HEMOGLOBIN A1c (test code = 21910) 10.9 % COMPREHENSIVE METABOLIC [id number] 00:00:00 Test Item Value Reference Range Interpretation Comments GLUCOSE (test code = 2217) 217 MG/DL BUN (test code = 2208) 13 MG/DL CREATININE (test code = 2214) 0.64 MG/DL eGFR AMER. (test code 128 ML/MIN/1.73 = 04079) eGFR NON- AMER. (test 110 ML/MIN/1.73 code = 92996) CALC BUN/CREAT (test code = 20 RATIO [...] (test code = 2219) 47 U/L CULTURE, [id number] 00:00:00 Test Item Value Reference Range Interpretation Comments CULTURE, URINE (test SPECIMEN NUMBER: code = 07285) [id number] CULTURE, [id number] 00:00:00 Test Item Value Reference Range Interpretation Comments CULTURE, URINE (test SPECIMEN NUMBER: code = 28685) [id number] COMPREHENSIVE METABOLIC [id number] 00:00:00 Test Item Value Reference Range Interpretation Comments GLUCOSE (test code = 2217) 217 MG/DL BUN (test code = 2208) 13 MG/DL CREATININE (test code = 2214) 0.64 MG/DL eGFR AMER. (test code 128 ML/MIN/1.73 = 79573) eGFR NON- AMER. (test 110 ML/MIN/1.73 code = 32843) CALC BUN/CREAT (test code = 20 RATIO [...] (test code = 2219) 47 U/L LIPID [id number] 00:00:00 Test Item Value Reference Range Interpretation Comments CHOLESTEROL (test code = 2210) 220 MG/DL TRIGLYCERIDES (test code = 2232) 873 MG/DL HDL CHOLESTEROL (test code = 30 MG/DL 2220) CALC LDL CHOL (test code = 2237) (NOTE) MG/DL RISK RATIO LDL/HDL (test code = (NOTE) RATIO 2238) LIPID [id number] 00:00:00 Test Item Value Reference Range Interpretation Comments CHOLESTEROL (test code = 2210) 220 MG/DL TRIGLYCERIDES (test code = 2232) 873 MG/DL HDL CHOLESTEROL (test code = 30 MG/DL 2220) CALC LDL CHOL (test code = 2237) (NOTE) MG/DL RISK RATIO LDL/HDL (test code = (NOTE) RATIO 2238) HEMOGLOBIN [id number] 00:00:00 Test Item Value Reference Range Interpretation Comments HEMOGLOBIN A1c (test code = 65767) 10.9 % HEMOGLOBIN [id number] 00:00:00 Test Item Value Reference Range Interpretation Comments HEMOGLOBIN A1c (test code = 35646) 10.9 % HEMOGLOBIN [id number] 00:00:00 Test Item Value Reference Range Interpretation Comments HEMOGLOBIN A1c (test code = 41188) 10.9 % COMPREHENSIVE METABOLIC [id number] 00:00:00 Test Item Value Reference Range Interpretation Comments GLUCOSE (test code = 2217) 217 MG/DL BUN (test code = 2208) 13 MG/DL CREATININE (test code = 2214) 0.64 MG/DL eGFR AMER. (test code 128 ML/MIN/1.73 = 75811) eGFR NON- AMER. (test 110 ML/MIN/1.73 code = 44100) CALC BUN/CREAT (test code = 20 RATIO [...] (test code = 2219) 47 U/L CULTURE, [id number] 00:00:00 Test Item Value Reference Range Interpretation Comments CULTURE, URINE (test SPECIMEN NUMBER: code = 64811) [id number] CULTURE, [id number] 00:00:00 Test Item Value Reference Range Interpretation Comments CULTURE, URINE (test SPECIMEN NUMBER: code = 67335) [id number] COMPREHENSIVE METABOLIC [id number] 00:00:00 Test Item Value Reference Range Interpretation Comments GLUCOSE (test code = 2217) 217 MG/DL BUN (test code = 2208) 13 MG/DL CREATININE (test code = 2214) 0.64 MG/DL eGFR AMER. (test code 128 ML/MIN/1.73 = 02246) eGFR NON- AMER. (test 110 ML/MIN/1.73 code = 29468) CALC BUN/CREAT (test code = 20 RATIO [...] (test code = 2219) 47 U/L LIPID [id number] 00:00:00 Test Item Value Reference Range Interpretation Comments CHOLESTEROL (test code = 2210) 220 MG/DL TRIGLYCERIDES (test code = 2232) 873 MG/DL HDL CHOLESTEROL (test code = 30 MG/DL 2220) CALC LDL CHOL (test code = 2237) (NOTE) MG/DL RISK RATIO LDL/HDL (test code = (NOTE) RATIO 2238) LIPID [id number] 00:00:00 Test Item Value Reference Range Interpretation Comments CHOLESTEROL (test code = 2210) 220 MG/DL TRIGLYCERIDES (test code = 2232) 873 MG/DL HDL CHOLESTEROL (test code = 30 MG/DL 2220) CALC LDL CHOL (test code = 2237) (NOTE) MG/DL RISK RATIO LDL/HDL (test code = (NOTE) RATIO 2238) HEMOGLOBIN [id number] 00:00:00 Test Item Value Reference Range Interpretation Comments HEMOGLOBIN A1c (test code = 03583) 10.9 % HEMOGLOBIN [id number] 00:00:00 Test Item Value Reference Range Interpretation Comments HEMOGLOBIN A1c (test code = 76409) 10.9 % HEMOGLOBIN [id number] 00:00:00 Test Item Value Reference Range Interpretation Comments HEMOGLOBIN A1c (test code = 68617) 10.9 % COMPREHENSIVE METABOLIC [id number] 00:00:00 Test Item Value Reference Range Interpretation Comments GLUCOSE (test code = 2217) 217 MG/DL BUN (test code = 2208) 13 MG/DL CREATININE (test code = 2214) 0.64 MG/DL eGFR AMER. (test code 128 ML/MIN/1.73 = 48400) eGFR NON- AMER. (test 110 ML/MIN/1.73 code = 63542) CALC BUN/CREAT (test code = 20 RATIO [...] code = 2219) 47 U/L COMPREHENSIVE METABOLIC [id number] 00:00:00 Test Item Value Reference Range Interpretation Comments GLUCOSE (test code = 2217) 217 MG/DL BUN (test code = 2208) 13 MG/DL CREATININE (test code = 2214) 0.64 MG/DL eGFR AMER. (test code 128 ML/MIN/1.73 = 42605) eGFR NON- AMER. (test 110 ML/MIN/1.73 code = 08700) CALC BUN/CREAT (test code = 20 RATIO [...] (test code = 2219) 47 U/L CULTURE, [id number] 00:00:00 Test Item Value Reference Range Interpretation Comments CULTURE, URINE (test SPECIMEN NUMBER: code = 13908) [id number] COMPREHENSIVE METABOLIC [id number] 00:00:00 Test Item Value Reference Range Interpretation Comments GLUCOSE (test code = 2217) 217 MG/DL BUN (test code = 2208) 13 MG/DL CREATININE (test code = 2214) 0.64 MG/DL eGFR AMER. (test code 128 ML/MIN/1.73 = 18385) eGFR NON- AMER. (test 110 ML/MIN/1.73 code = 24128) CALC BUN/CREAT (test code = 20 RATIO [...] (test code = 2219) 47 U/L CULTURE, [id number] 00:00:00 Test Item Value Reference Range Interpretation Comments CULTURE, URINE (test SPECIMEN NUMBER: code = 18239) [id number] LIPID [id number] 00:00:00 Test Item Value Reference Range Interpretation Comments CHOLESTEROL (test code = 2210) 220 MG/DL TRIGLYCERIDES (test code = 2232) 873 MG/DL HDL CHOLESTEROL (test code = 30 MG/DL 2220) CALC LDL CHOL (test code = 2237) (NOTE) MG/DL RISK RATIO LDL/HDL (test code = (NOTE) RATIO 2238) LIPID [id number] 00:00:00 Test Item Value Reference Range Interpretation Comments CHOLESTEROL (test code = 2210) 220 MG/DL TRIGLYCERIDES (test code = 2232) 873 MG/DL HDL CHOLESTEROL (test code = 30 MG/DL 2220) CALC LDL CHOL (test code = 2237) (NOTE) MG/DL RISK RATIO LDL/HDL (test code = (NOTE) RATIO 2238) HEMOGLOBIN [id number] 00:00:00 Test Item Value Reference Range Interpretation Comments HEMOGLOBIN A1c (test code = 71956) 10.9 % HEMOGLOBIN [id number] 00:00:00 Test Item Value Reference Range Interpretation Comments HEMOGLOBIN A1c (test code = 68847) 10.9 % HEMOGLOBIN [id number] 00:00:00 Test Item Value Reference Range Interpretation Comments HEMOGLOBIN A1c (test code = 59446) 10.9 % CULTURE, [id number] 00:00:00 Test Item Value Reference Range Interpretation Comments CULTURE, URINE (test SPECIMEN NUMBER: code = 92496) [id number] LIPID [id number] 00:00:00 Test Item Value Reference Range Interpretation Comments CHOLESTEROL (test code = 2210) 220 MG/DL TRIGLYCERIDES (test code = 2232) 873 MG/DL HDL CHOLESTEROL (test code = 30 MG/DL 2220) CALC LDL CHOL (test code = 2237) (NOTE) MG/DL RISK RATIO LDL/HDL (test code = (NOTE) RATIO 2238) HEMOGLOBIN [id number] 00:00:00 Test Item Value Reference Range Interpretation Comments HEMOGLOBIN A1c (test code = 76189) 10.9 % HEMOGLOBIN [id number] 00:00:00 Test Item Value Reference Range Interpretation Comments HEMOGLOBIN A1c (test code = 26920) 10.9 % CULTURE, [id number] 00:00:00 Test Item Value Reference Range Interpretation Comments CULTURE, URINE (test SPECIMEN NUMBER: code = 13297) [id number] COMPREHENSIVE METABOLIC [id number] 00:00:00 Test Item Value Reference Range Interpretation Comments GLUCOSE (test code = 2217) 217 MG/DL BUN (test code = 2208) 13 MG/DL CREATININE (test code = 2214) 0.64 MG/DL eGFR AMER. (test code 128 ML/MIN/1.73 = 59036) eGFR NON- AMER. (test 110 ML/MIN/1.73 code = 87918) CALC BUN/CREAT (test code = 20 RATIO [...] (test code = 2219) 47 U/L CULTURE, [id number] 00:00:00 Test Item Value Reference Range Interpretation Comments CULTURE, URINE (test SPECIMEN NUMBER: code = 30333) [id number] COMPREHENSIVE METABOLIC [id number] 00:00:00 Test Item Value Reference Range Interpretation Comments GLUCOSE (test code = 2217) 217 MG/DL BUN (test code = 2208) 13 MG/DL CREATININE (test code = 2214) 0.64 MG/DL eGFR AMER. (test code 128 ML/MIN/1.73 = 92828) eGFR NON- AMER. (test 110 ML/MIN/1.73 code = 06882) CALC BUN/CREAT (test code = 20 RATIO [...] (test code = 2219) 47 U/L LIPID [id number] 00:00:00 Test Item Value Reference Range Interpretation Comments CHOLESTEROL (test code = 2210) 220 MG/DL TRIGLYCERIDES (test code = 2232) 873 MG/DL HDL CHOLESTEROL (test code = 30 MG/DL 2220) CALC LDL CHOL (test code = 2237) (NOTE) MG/DL RISK RATIO LDL/HDL (test code = (NOTE) RATIO 2238) LIPID [id number] 00:00:00 Test Item Value Reference Range Interpretation Comments CHOLESTEROL (test code = 2210) 220 MG/DL TRIGLYCERIDES (test code = 2232) 873 MG/DL HDL CHOLESTEROL (test code = 30 MG/DL 2220) CALC LDL CHOL (test code = 2237) (NOTE) MG/DL RISK RATIO LDL/HDL (test code = (NOTE) RATIO 2238) HEMOGLOBIN [id number] 00:00:00 Test Item Value Reference Range Interpretation Comments HEMOGLOBIN A1c (test code = 29929) 10.9 % HEMOGLOBIN [id number] 00:00:00 Test Item Value Reference Range Interpretation Comments HEMOGLOBIN A1c (test code = 47537) 10.9 % HEMOGLOBIN [id number] 00:00:00 Test Item Value Reference Range Interpretation Comments HEMOGLOBIN A1c (test code = 82523) 10.9 % CULTURE, [id number] 00:00:00 Test Item Value Reference Range Interpretation Comments CULTURE, URINE (test SPECIMEN NUMBER: code = 49076) [id number] COMPREHENSIVE METABOLIC [id number] 00:00:00 Test Item Value Reference Range Interpretation Comments GLUCOSE (test code = 2217) 217 MG/DL BUN (test code = 2208) 13 MG/DL CREATININE (test code = 2214) 0.64 MG/DL eGFR AMER. (test code 128 ML/MIN/1.73 = 28044) eGFR NON- AMER. (test 110 ML/MIN/1.73 code = 08650) CALC BUN/CREAT (test code = 20 RATIO [...] (test code = 2219) 47 U/L CULTURE, [id number] 00:00:00 Test Item Value Reference Range Interpretation Comments CULTURE, URINE (test SPECIMEN NUMBER: code = 90907) [id number] COMPREHENSIVE METABOLIC [id number] 00:00:00 Test Item Value Reference Range Interpretation Comments GLUCOSE (test code = 2217) 217 MG/DL BUN (test code = 2208) 13 MG/DL CREATININE (test code = 2214) 0.64 MG/DL eGFR AMER. (test code 128 ML/MIN/1.73 = 67645) eGFR NON- AMER. (test 110 ML/MIN/1.73 code = 57146) CALC BUN/CREAT (test code = 20 RATIO [...] (test code = 2219) 47 U/L LIPID [id number] 00:00:00 Test Item Value Reference Range Interpretation Comments CHOLESTEROL (test code = 2210) 220 MG/DL TRIGLYCERIDES (test code = 2232) 873 MG/DL HDL CHOLESTEROL (test code = 30 MG/DL 2220) CALC LDL CHOL (test code = 2237) (NOTE) MG/DL RISK RATIO LDL/HDL (test code = (NOTE) RATIO 2238) LIPID [id number] 00:00:00 Test Item Value Reference Range Interpretation Comments CHOLESTEROL (test code = 2210) 220 MG/DL TRIGLYCERIDES (test code = 2232) 873 MG/DL HDL CHOLESTEROL (test code = 30 MG/DL 2220) CALC LDL CHOL (test code = 2237) (NOTE) MG/DL RISK RATIO LDL/HDL (test code = (NOTE) RATIO 2238) HEMOGLOBIN [id number] 00:00:00 Test Item Value Reference Range Interpretation Comments HEMOGLOBIN A1c (test code = 99519) 10.9 % HEMOGLOBIN [id number] 00:00:00 Test Item Value Reference Range Interpretation Comments HEMOGLOBIN A1c (test code = 19333) 10.9 % HEMOGLOBIN [id number] 00:00:00 Test Item Value Reference Range Interpretation Comments HEMOGLOBIN A1c (test code = 52076) 10.9 % COMPREHENSIVE METABOLIC [id number] 00:00:00 Test Item Value Reference Range Interpretation Comments GLUCOSE (test code = 2217) 217 MG/DL BUN (test code = 2208) 13 MG/DL CREATININE (test code = 2214) 0.64 MG/DL eGFR AMER. (test code 128 ML/MIN/1.73 = 90496) eGFR NON- AMER. (test 110 ML/MIN/1.73 code = 24453) CALC BUN/CREAT (test code = 20 RATIO [...] (test code = 2219) 47 U/L CULTURE, [id number] 00:00:00 Test Item Value Reference Range Interpretation Comments CULTURE, URINE (test SPECIMEN NUMBER: code = 81384) [id number] COMPREHENSIVE METABOLIC [id number] 00:00:00 Test Item Value Reference Range Interpretation Comments GLUCOSE (test code = 2217) 217 MG/DL BUN (test code = 2208) 13 MG/DL CREATININE (test code = 2214) 0.64 MG/DL eGFR AMER. (test code 128 ML/MIN/1.73 = 47751) eGFR NON- AMER. (test 110 ML/MIN/1.73 code = 68960) CALC BUN/CREAT (test code = 20 RATIO [...] (test code = 2219) 47 U/L CULTURE, [id number] 00:00:00 Test Item Value Reference Range Interpretation Comments CULTURE, URINE (test SPECIMEN NUMBER: code = 45478) [id number] LIPID [id number] 00:00:00 Test Item Value Reference Range Interpretation Comments CHOLESTEROL (test code = 2210) 220 MG/DL TRIGLYCERIDES (test code = 2232) 873 MG/DL HDL CHOLESTEROL (test code = 30 MG/DL 2220) CALC LDL CHOL (test code = 2237) (NOTE) MG/DL RISK RATIO LDL/HDL (test code = (NOTE) RATIO 2238) LIPID [id number] 00:00:00 Test Item Value Reference Range Interpretation Comments CHOLESTEROL (test code = 2210) 220 MG/DL TRIGLYCERIDES (test code = 2232) 873 MG/DL HDL CHOLESTEROL (test code = 30 MG/DL 2220) CALC LDL CHOL (test code = 2237) (NOTE) MG/DL RISK RATIO LDL/HDL (test code = (NOTE) RATIO 2238) HEMOGLOBIN [id number] 00:00:00 Test Item Value Reference Range Interpretation Comments HEMOGLOBIN A1c (test code = 22272) 10.9 % HEMOGLOBIN [id number] 00:00:00 Test Item Value Reference Range Interpretation Comments HEMOGLOBIN A1c (test code = 68693) 10.9 % HEMOGLOBIN [id number] 00:00:00 Test Item Value Reference Range Interpretation Comments HEMOGLOBIN A1c (test code = 22639) 10.9 % - XR ANKLE 3 + V [id number] 07:19:00 Patient Name: Marge Franco Unit No: [id number] EXAMS: CPT CODE: [id number] XR ANKLE 3 + V RT 79756 Right ankle 3 views COMMENT: There is [...] and signed by: Prasad Marina MD CC: Judi Hodge DO Technologist: RT JOSE(R) Transcribed D/ (0719) [email or web address] [facility] NAME: Estrella Francoe[address] [facility] PHYS: Judi Cardenas DO : 1980 AGE: 40 SEX: F [place], [place] [address] A CCT NO: [id number] LOC: TEOFILO PHONE #: [phone] EXAM DATE: 02/13/2020 STATUS: DEP ER FAX #: [phone] RAD #: D/C DT PAGE 1 Signed Report Patient Name: Marge Franco Unit No: [id number] EXAMS: CPT CODE: [id number] XR ANKLE 3 + V RT 01574 (Continued) Orig Print D/T: S: 02/14/2020 (07) [facility] NAME: Marge Franco [address] [facility] PHYS: Judi Cardenas DO : 1980 AGE: 40 SEX: F [place], [place] [address] LOC: TEOFILO PHONE #: [phone] EXAM DATE: 02/13/2020 STATUS: DEP ER FAX #: [phone] RAD #: D/C DT PAGE 2 Signed Report- XR FOOT 2 VIEWS [id number] 07:19:00 Patient Name: Marge Franco Unit No: [id number] EXAMS: CPT CODE: [id number] [place]R FO[place] 2 [place] [address] Right ankle 3 views COMMENT: There is [...] and signed by: Prasad Marina MD CC: Judi Hodge DO Technologist: SAMANTHA MORALES, RT(R) Transcribed D/ (07) NoelJCL [facility] NAME: Marge Franco [address] [facility] PHYS: Judi Cardenas DO : 1980 AGE: 40 SEX: F [place], [place] [address]LLJK NO: [id number] LOC: TEOFILO PHONE #: [phone] EXAM DATE: 02/13/2020 STATUS: DEP ER FAX #: [phone] RAD #: D/C DT PAGE 1 Signed Report Patient Name: Marge Franco Unit No: [id number] EXAMS: CPT CODE: [id number] XR FOOT [address] [place] [address] (Continued) Orig Print D/T: S: 02/14/2020 (0722) [facility] NAME: Marge Franco [address] PHYS: Judi Cardenas DO : 1980 AGE: 40 SEX: F [place], [place] [address] LOC: TEOFIOL PHONE #: [phone] EXAM DATE: 02/13/2020 STATUS: DEP ER FAX #: [phone] RAD #: D/C DT PAGE 2 Signed [id number] 11:17:00 Test Item Value Reference Range Interpretation Comments GLUBED (test code = GLUBED) 119 mg/dL 60-125 N [id number] 08:15:00 Test Item Value Reference Range Interpretation Comments GLUBED (test code = GLUBED) 117 mg/dL 60-125 N Novel Coronavirus 2019 [id number] 17:12:00 Test Item Value Reference Range Interpretation Comments Novel Coronavirus 2019 Inhouse (test Negative Negative code = COVNONPUI) Novel Coronavirus 2019 [id number] 17:12:00 Test Item Value Reference Range Interpretation Comments Novel Coronavirus 2018 Inhouse (test Negative Negative code = COVNONPUI) CBC W/AUTO [id number] 20:19:00 Test Item Value Reference Range Interpretation [...] 0-0 N code = NRBC) BASIC METABOLIC [id number] 19:54:00 Test Item Value Reference Range Interpretation [...] RATE (test code = GFR) mL/mi n/1.73 e1Lmbsglogr Range:Healthy A dults >90 mL/min/1.73 m2 For Chronic Kid stoney Disease: Stage II Mild Decrease i n GFR 60-90 Stage III Moderate Decrea se in GFR 30-59 Stage IV Severe Decrease in GFR 15-29 Stage V Kidney Failure <15 CREATININE (test code 0.83 mg/dL 0.55-1.30 N = CREAT) CALCIUM (test code = 9.6 mg/dL 8.2-10.1 N CA) - CT LOWER EXTRM W/O C [id number] 14:57:00 Patient Name: MARGE FRANCO Unit No: [id number] EXAMS: CPT CODE: [id number] CT LOWER EXTRM W/[place] [address] [place] SCAN RIGHT ANKLE WITH RECONSTRUCTION DIAGNOSIS: [...] with ACR practice standards and adherence to civil laboratory technician's recommendations. INDICATION: RIGHT ANKLE PAIN COMPARISON: None. COMMENT: Findings are as described above. at 1457 Reported and signed by: America Schuler MD CC: Elbert Wilson MD Technologist: Shaan Prakash ins,RT(R) CTDI: DLP: Trnscrpt: 01/04/2020 (9374) [email or web address] [facility] NAME: MARGE FRANCO [address] [facility] PHYS: Elbert Rodrigues MD : 1980 AGE: 39 SEX: F [place] [address] LOC: Y.RAD PHONE #: [phone] EXAM DATE: 01/04/2020 STATUS: REG CLI FAX #: [phone] RAD #: D/C DT PAGE 1 Signed Report Patient Name: MARGE FRANCO Unit No: [id number] EXAMS: CPT CODE: [id number] CT LOWER EXTRM W/[place] [address] (Continued) Orig Print D/T: S: 01/04/2020 (1500) [facility] NAME: MARGE FRANCO [address] PHYS: Elbert Rodrigues MD : 1980 AGE: 39 SEX: F [place], [place] [address] LOC: Y.RAD PHONE #: [phone] EXAM DATE: 01/04/2020 STATUS: REG CLI FAX #: [phone] RAD #: D/C DT PAGE 2 Signed ReportCULTURE, URINE 2019-12-22 00:00:00 Test Item Value Reference Range Interpretation Comments CULTURE, URINE (test SPECIMEN NUMBER: code = 97067) [id number] CULTURE, [id number] 00:00:00 Test Item Value Reference Range Interpretation Comments CULTURE, URINE (test SPECIMEN NUMBER: code = 83023) [id number] CULTURE, [id number] 00:00:00 Test Item Value Reference Range Interpretation Comments CULTURE, URINE (test SPECIMEN NUMBER: code = 27799) [id number] CULTURE, [id number] 00:00:00 Test Item Value Reference Range Interpretation Comments CULTURE, URINE (test SPECIMEN NUMBER: code = 21245) [id number] CULTURE, [id number] 00:00:00 Test Item Value Reference Range Interpretation Comments CULTURE, URINE (test SPECIMEN NUMBER: code = 97581) [id number] CULTURE, [id number] 00:00:00 Test Item Value Reference Range Interpretation Comments CULTURE, URINE (test SPECIMEN NUMBER: code = 27032) [id number] CULTURE, [id number] 00:00:00 Test Item Value Reference Range Interpretation Comments CULTURE, URINE (test SPECIMEN NUMBER: code = 22543) [id number] CULTURE, [id number] 00:00:00 Test Item Value Reference Range Interpretation Comments CULTURE, URINE (test SPECIMEN NUMBER: code = 04996) [id number] CULTURE, [id number] 00:00:00 Test Item Value Reference Range Interpretation Comments CULTURE, URINE (test SPECIMEN NUMBER: code = 92334) [id number] CULTURE, [id number] 00:00:00 Test Item Value Reference Range Interpretation Comments CULTURE, URINE (test SPECIMEN NUMBER: code = 04670) [id number] CULTURE, [id number] 00:00:00 Test Item Value Reference Range Interpretation Comments CULTURE, URINE (test SPECIMEN NUMBER: code = 98802) [id number] CULTURE, [id number] 00:00:00 Test Item Value Reference Range Interpretation Comments CULTURE, URINE (test SPECIMEN NUMBER: code = 73004) [id number] CULTURE, [id number] 00:00:00 Test Item Value Reference Range Interpretation Comments CULTURE, URINE (test SPECIMEN NUMBER: code = 82671) [id number] CULTURE, [id number] 00:00:00 Test Item Value Reference Range Interpretation Comments CULTURE, URINE (test SPECIMEN NUMBER: code = 63635) [id number] CULTURE, [id number] 00:00:00 Test Item Value Reference Range Interpretation Comments CULTURE, URINE (test SPECIMEN NUMBER: code = 32717) [id number] CULTURE, [id number] 00:00:00 Test Item Value Reference Range Interpretation Comments CULTURE, URINE (test SPECIMEN NUMBER: code = 62113) [id number] CULTURE, [id number] 00:00:00 Test Item Value Reference Range Interpretation Comments CULTURE, URINE (test SPECIMEN NUMBER: code = 68458) [id number] CULTURE, [id number] 00:00:00 Test Item Value Reference Range Interpretation Comments CULTURE, URINE (test SPECIMEN NUMBER: code = 84260) [id number] CULTURE, [id number] 00:00:00 Test Item Value Reference Range Interpretation Comments CULTURE, URINE (test SPECIMEN NUMBER: code = 07529) [id number] CULTURE, [id number] 00:00:00 Test Item Value Reference Range Interpretation Comments CULTURE, URINE (test SPECIMEN NUMBER: code = 78164) [id number] CULTURE, [id number] 00:00:00 Test Item Value Reference Range Interpretation Comments CULTURE, URINE (test SPECIMEN NUMBER: code = 50335) [id number] LIPID [id number] 00:00:00 Test Item Value Reference Range Interpretation Comments CHOLESTEROL (test code = 2210) 354 MG/DL TRIGLYCERIDES (test code = 2232) 2608 MG/DL HDL CHOLESTEROL (test code = 19 MG/DL 2220) CALC LDL CHOL (test code = 2237) NOTE MG/DL RISK RATIO LDL/HDL (test code = (NOTE) RATIO 2238) LIPID [id number] 00:00:00 Test Item Value Reference Range Interpretation Comments CHOLESTEROL (test code = 2210) 354 MG/DL TRIGLYCERIDES (test code = 2232) 2608 MG/DL HDL CHOLESTEROL (test code = 19 MG/DL 2220) CALC LDL CHOL (test code = 2237) NOTE MG/DL RISK RATIO LDL/HDL (test code = (NOTE) RATIO 2238) HEMOGLOBIN [id number] 00:00:00 Test Item Value Reference Range Interpretation Comments HEMOGLOBIN A1c (test code = 14351) 11.5 % HEMOGLOBIN [id number] 00:00:00 Test Item Value Reference Range Interpretation Comments HEMOGLOBIN A1c (test code = 44610) 11.5 % HEMOGLOBIN [id number] 00:00:00 Test Item Value Reference Range Interpretation Comments HEMOGLOBIN A1c (test code = 27445) 11.5 % MICROALBUMIN/CREATININE, RANDOM AND [id number] 00:00:00 Test Item Value Reference Range Interpretation Comments CREATININE, URINE, CONC. (test 92.4 MG/DL code = 2072) ALBUMIN, URINE, RANDOM (test code 158.5 MG/DL = 42585) CALC ALBUMIN/CREAT, RND (test 1715 MG/G code = 19858) MICROALBUMIN/CREATININE, RANDOM AND [id number] 00:00:00 Test Item Value Reference Range Interpretation Comments CREATININE, URINE, CONC. (test 92.4 MG/DL code = 2072) ALBUMIN, URINE, RANDOM (test code 158.5 MG/DL = 83063) CALC ALBUMIN/CREAT, RND (test 1715 MG/G code = 54717) LIPID [id number] 00:00:00 Test Item Value Reference Range Interpretation Comments CHOLESTEROL (test code = 2210) 354 MG/DL TRIGLYCERIDES (test code = 2232) 2608 MG/DL HDL CHOLESTEROL (test code = 19 MG/DL 2220) CALC LDL CHOL (test code = 2237) NOTE MG/DL RISK RATIO LDL/HDL (test code = (NOTE) RATIO 2238) LIPID [id number] 00:00:00 Test Item Value Reference Range Interpretation Comments CHOLESTEROL (test code = 2210) 354 MG/DL TRIGLYCERIDES (test code = 2232) 2608 MG/DL HDL CHOLESTEROL (test code = 19 MG/DL 2220) CALC LDL CHOL (test code = 2237) NOTE MG/DL RISK RATIO LDL/HDL (test code = (NOTE) RATIO 2238) HEMOGLOBIN [id number] 00:00:00 Test Item Value Reference Range Interpretation Comments HEMOGLOBIN A1c (test code = 79339) 11.5 % HEMOGLOBIN [id number] 00:00:00 Test Item Value Reference Range Interpretation Comments HEMOGLOBIN A1c (test code = 86851) 11.5 % HEMOGLOBIN [id number] 00:00:00 Test Item Value Reference Range Interpretation Comments HEMOGLOBIN A1c (test code = 61694) 11.5 % MICROALBUMIN/CREATININE, RANDOM AND [id number] 00:00:00 Test Item Value Reference Range Interpretation Comments CREATININE, URINE, CONC. (test 92.4 MG/DL code = 2072) ALBUMIN, URINE, RANDOM (test code 158.5 MG/DL = 81390) CALC ALBUMIN/CREAT, RND (test 1715 MG/G code = 51408) MICROALBUMIN/CREATININE, RANDOM AND [id number] 00:00:00 Test Item Value Reference Range Interpretation Comments CREATININE, URINE, CONC. (test 92.4 MG/DL code = 2072) ALBUMIN, URINE, RANDOM (test code 158.5 MG/DL = 33207) CALC ALBUMIN/CREAT, RND (test 1715 MG/G code = 24498) LIPID [id number] 00:00:00 Test Item Value Reference Range Interpretation Comments CHOLESTEROL (test code = 2210) 354 MG/DL TRIGLYCERIDES (test code = 2232) 2608 MG/DL HDL CHOLESTEROL (test code = 19 MG/DL 2220) CALC LDL CHOL (test code = 2237) NOTE MG/DL RISK RATIO LDL/HDL (test code = (NOTE) RATIO 2238) LIPID [id number] 00:00:00 Test Item Value Reference Range Interpretation Comments CHOLESTEROL (test code = 2210) 354 MG/DL TRIGLYCERIDES (test code = 2232) 2608 MG/DL HDL CHOLESTEROL (test code = 19 MG/DL 2220) CALC LDL CHOL (test code = 2237) NOTE MG/DL RISK RATIO LDL/HDL (test code = (NOTE) RATIO 2238) HEMOGLOBIN [id number] 00:00:00 Test Item Value Reference Range Interpretation Comments HEMOGLOBIN A1c (test code = 37191) 11.5 % HEMOGLOBIN [id number] 00:00:00 Test Item Value Reference Range Interpretation Comments HEMOGLOBIN A1c (test code = 05682) 11.5 % HEMOGLOBIN [id number] 00:00:00 Test Item Value Reference Range Interpretation Comments HEMOGLOBIN A1c (test code = 05832) 11.5 % MICROALBUMIN/CREATININE, RANDOM AND [id number] 00:00:00 Test Item Value Reference Range Interpretation Comments CREATININE, URINE, CONC. (test 92.4 MG/DL code = 2072) ALBUMIN, URINE, RANDOM (test code 158.5 MG/DL = 45996) CALC ALBUMIN/CREAT, RND (test 1715 MG/G code = 43936) MICROALBUMIN/CREATININE, RANDOM AND [id number] 00:00:00 Test Item Value Reference Range Interpretation Comments CREATININE, URINE, CONC. (test 92.4 MG/DL code = 2072) ALBUMIN, URINE, RANDOM (test code 158.5 MG/DL = 12600) CALC ALBUMIN/CREAT, RND (test 1715 MG/G code = 98368) LIPID [id number] 00:00:00 Test Item Value Reference Range Interpretation Comments CHOLESTEROL (test code = 2210) 354 MG/DL TRIGLYCERIDES (test code = 2232) 2608 MG/DL HDL CHOLESTEROL (test code = 19 MG/DL 2220) CALC LDL CHOL (test code = 2237) NOTE MG/DL RISK RATIO LDL/HDL (test code = (NOTE) RATIO 2238) LIPID [id number] 00:00:00 Test Item Value Reference Range Interpretation Comments CHOLESTEROL (test code = 2210) 354 MG/DL TRIGLYCERIDES (test code = 2232) 2608 MG/DL HDL CHOLESTEROL (test code = 19 MG/DL 2220) CALC LDL CHOL (test code = 2237) NOTE MG/DL RISK RATIO LDL/HDL (test code = (NOTE) RATIO 2238) HEMOGLOBIN [id number] 00:00:00 Test Item Value Reference Range Interpretation Comments HEMOGLOBIN A1c (test code = 41021) 11.5 % HEMOGLOBIN [id number] 00:00:00 Test Item Value Reference Range Interpretation Comments HEMOGLOBIN A1c (test code = 06747) 11.5 % HEMOGLOBIN [id number] 00:00:00 Test Item Value Reference Range Interpretation Comments HEMOGLOBIN A1c (test code = 23860) 11.5 % MICROALBUMIN/CREATININE, RANDOM AND [id number] 00:00:00 Test Item Value Reference Range Interpretation Comments CREATININE, URINE, CONC. (test 92.4 MG/DL code = 2072) ALBUMIN, URINE, RANDOM (test code 158.5 MG/DL = 13846) CALC ALBUMIN/CREAT, RND (test 1715 MG/G code = 95345) MICROALBUMIN/CREATININE, RANDOM AND [id number] 00:00:00 Test Item Value Reference Range Interpretation Comments CREATININE, URINE, CONC. (test 92.4 MG/DL code = 2072) ALBUMIN, URINE, RANDOM (test code 158.5 MG/DL = 29765) CALC ALBUMIN/CREAT, RND (test 1715 MG/G code = 91500) LIPID [id number] 00:00:00 Test Item Value Reference Range Interpretation Comments CHOLESTEROL (test code = 2210) 354 MG/DL TRIGLYCERIDES (test code = 2232) 2608 MG/DL HDL CHOLESTEROL (test code = 19 MG/DL 2220) CALC LDL CHOL (test code = 2237) NOTE MG/DL RISK RATIO LDL/HDL (test code = (NOTE) RATIO 2238) LIPID [id number] 00:00:00 Test Item Value Reference Range Interpretation Comments CHOLESTEROL (test code = 2210) 354 MG/DL TRIGLYCERIDES (test code = 2232) 2608 MG/DL HDL CHOLESTEROL (test code = 19 MG/DL 2220) CALC LDL CHOL (test code = 2237) NOTE MG/DL RISK RATIO LDL/HDL (test code = (NOTE) RATIO 2238) HEMOGLOBIN [id number] 00:00:00 Test Item Value Reference Range Interpretation Comments HEMOGLOBIN A1c (test code = 99860) 11.5 % HEMOGLOBIN [id number] 00:00:00 Test Item Value Reference Range Interpretation Comments HEMOGLOBIN A1c (test code = 71170) 11.5 % HEMOGLOBIN [id number] 00:00:00 Test Item Value Reference Range Interpretation Comments HEMOGLOBIN A1c (test code = 75878) 11.5 % MICROALBUMIN/CREATININE, RANDOM AND [id number] 00:00:00 Test Item Value Reference Range Interpretation Comments CREATININE, URINE, CONC. (test 92.4 MG/DL code = 2072) ALBUMIN, URINE, RANDOM (test code 158.5 MG/DL = 74911) CALC ALBUMIN/CREAT, RND (test 1715 MG/G code = 10588) MICROALBUMIN/CREATININE, RANDOM AND [id number] 00:00:00 Test Item Value Reference Range Interpretation Comments CREATININE, URINE, CONC. (test 92.4 MG/DL code = 2072) ALBUMIN, URINE, RANDOM (test code 158.5 MG/DL = 75656) CALC ALBUMIN/CREAT, RND (test 1715 MG/G code = 57376) LIPID [id number] 00:00:00 Test Item Value Reference Range Interpretation Comments CHOLESTEROL (test code = 2210) 354 MG/DL TRIGLYCERIDES (test code = 2232) 2608 MG/DL HDL CHOLESTEROL (test code = 19 MG/DL 2220) CALC LDL CHOL (test code = 2237) NOTE MG/DL RISK RATIO LDL/HDL (test code = (NOTE) RATIO 2238) LIPID [id number] 00:00:00 Test Item Value Reference Range Interpretation Comments CHOLESTEROL (test code = 2210) 354 MG/DL TRIGLYCERIDES (test code = 2232) 2608 MG/DL HDL CHOLESTEROL (test code = 19 MG/DL 2220) CALC LDL CHOL (test code = 2237) NOTE MG/DL RISK RATIO LDL/HDL (test code = (NOTE) RATIO 2238) HEMOGLOBIN [id number] 00:00:00 Test Item Value Reference Range Interpretation Comments HEMOGLOBIN A1c (test code = 28966) 11.5 % HEMOGLOBIN [id number] 00:00:00 Test Item Value Reference Range Interpretation Comments HEMOGLOBIN A1c (test code = 40131) 11.5 % HEMOGLOBIN [id number] 00:00:00 Test Item Value Reference Range Interpretation Comments HEMOGLOBIN A1c (test code = 25831) 11.5 % MICROALBUMIN/CREATININE, RANDOM AND [id number] 00:00:00 Test Item Value Reference Range Interpretation Comments CREATININE, URINE, CONC. (test 92.4 MG/DL code = 2072) ALBUMIN, URINE, RANDOM (test code 158.5 MG/DL = 96680) CALC ALBUMIN/CREAT, RND (test 1715 MG/G code = 76307) MICROALBUMIN/CREATININE, RANDOM AND [id number] 00:00:00 Test Item Value Reference Range Interpretation Comments CREATININE, URINE, CONC. (test 92.4 MG/DL code = 2072) ALBUMIN, URINE, RANDOM (test code 158.5 MG/DL = 99606) CALC ALBUMIN/CREAT, RND (test 1715 MG/G code = 71123) LIPID [id number] 00:00:00 Test Item Value Reference Range Interpretation Comments CHOLESTEROL (test code = 2210) 354 MG/DL TRIGLYCERIDES (test code = 2232) 2608 MG/DL HDL CHOLESTEROL (test code = 19 MG/DL 2220) CALC LDL CHOL (test code = 2237) NOTE MG/DL RISK RATIO LDL/HDL (test code = (NOTE) RATIO 2238) LIPID [id number] 00:00:00 Test Item Value Reference Range Interpretation Comments CHOLESTEROL (test code = 2210) 354 MG/DL TRIGLYCERIDES (test code = 2232) 2608 MG/DL HDL CHOLESTEROL (test code = 19 MG/DL 2220) CALC LDL CHOL (test code = 2237) NOTE MG/DL RISK RATIO LDL/HDL (test code = (NOTE) RATIO 2238) HEMOGLOBIN [id number] 00:00:00 Test Item Value Reference Range Interpretation Comments HEMOGLOBIN A1c (test code = 66676) 11.5 % HEMOGLOBIN [id number] 00:00:00 Test Item Value Reference Range Interpretation Comments HEMOGLOBIN A1c (test code = 97414) 11.5 % HEMOGLOBIN [id number] 00:00:00 Test Item Value Reference Range Interpretation Comments HEMOGLOBIN A1c (test code = 02767) 11.5 % MICROALBUMIN/CREATININE, RANDOM AND [id number] 00:00:00 Test Item Value Reference Range Interpretation Comments CREATININE, URINE, CONC. (test 92.4 MG/DL code = 2072) ALBUMIN, URINE, RANDOM (test code 158.5 MG/DL = 75336) CALC ALBUMIN/CREAT, RND (test 1715 MG/G code = 89459) MICROALBUMIN/CREATININE, RANDOM AND [id number] 00:00:00 Test Item Value Reference Range Interpretation Comments CREATININE, URINE, CONC. (test 92.4 MG/DL code = 2072) ALBUMIN, URINE, RANDOM (test code 158.5 MG/DL = 47662) CALC ALBUMIN/CREAT, RND (test 1715 MG/G code = 22791) LIPID [id number] 00:00:00 Test Item Value Reference Range Interpretation Comments CHOLESTEROL (test code = 2210) 354 MG/DL TRIGLYCERIDES (test code = 2232) 2608 MG/DL HDL CHOLESTEROL (test code = 19 MG/DL 2220) CALC LDL CHOL (test code = 2237) NOTE MG/DL RISK RATIO LDL/HDL (test code = (NOTE) RATIO 2238) HEMOGLOBIN [id number] 00:00:00 Test Item Value Reference Range Interpretation Comments HEMOGLOBIN A1c (test code = 81384) 11.5 % HEMOGLOBIN [id number] 00:00:00 Test Item Value Reference Range Interpretation Comments HEMOGLOBIN A1c (test code = 91564) 11.5 % MICROALBUMIN/CREATININE, RANDOM AND [id number] 00:00:00 Test Item Value Reference Range Interpretation Comments CREATININE, URINE, CONC. (test 92.4 MG/DL code = 2072) ALBUMIN, URINE, RANDOM (test code 158.5 MG/DL = 46628) CALC ALBUMIN/CREAT, RND (test 1715 MG/G code = 61495) LIPID [id number] 00:00:00 Test Item Value Reference Range Interpretation Comments CHOLESTEROL (test code = 2210) 354 MG/DL TRIGLYCERIDES (test code = 2232) 2608 MG/DL HDL CHOLESTEROL (test code = 19 MG/DL 2220) CALC LDL CHOL (test code = 2237) NOTE MG/DL RISK RATIO LDL/HDL (test code = (NOTE) RATIO 2238) LIPID [id number] 00:00:00 Test Item Value Reference Range Interpretation Comments CHOLESTEROL (test code = 2210) 354 MG/DL TRIGLYCERIDES (test code = 2232) 2608 MG/DL HDL CHOLESTEROL (test code = 19 MG/DL 2220) CALC LDL CHOL (test code = 2237) NOTE MG/DL RISK RATIO LDL/HDL (test code = (NOTE) RATIO 2238) HEMOGLOBIN [id number] 00:00:00 Test Item Value Reference Range Interpretation Comments HEMOGLOBIN A1c (test code = 92953) 11.5 % HEMOGLOBIN [id number] 00:00:00 Test Item Value Reference Range Interpretation Comments HEMOGLOBIN A1c (test code = 29529) 11.5 % HEMOGLOBIN [id number] 00:00:00 Test Item Value Reference Range Interpretation Comments HEMOGLOBIN A1c (test code = 21417) 11.5 % MICROALBUMIN/CREATININE, RANDOM AND [id number] 00:00:00 Test Item Value Reference Range Interpretation Comments CREATININE, URINE, CONC. (test 92.4 MG/DL code = 2072) ALBUMIN, URINE, RANDOM (test code 158.5 MG/DL = 81402) CALC ALBUMIN/CREAT, RND (test 1715 MG/G code = 86515) MICROALBUMIN/CREATININE, RANDOM AND [id number] 00:00:00 Test Item Value Reference Range Interpretation Comments CREATININE, URINE, CONC. (test 92.4 MG/DL code = 2072) ALBUMIN, URINE, RANDOM (test code 158.5 MG/DL = 66057) CALC ALBUMIN/CREAT, RND (test 1715 MG/G code = 50351) LIPID [id number] 00:00:00 Test Item Value Reference Range Interpretation Comments CHOLESTEROL (test code = 2210) 354 MG/DL TRIGLYCERIDES (test code = 2232) 2608 MG/DL HDL CHOLESTEROL (test code = 19 MG/DL 2220) CALC LDL CHOL (test code = 2237) NOTE MG/DL RISK RATIO LDL/HDL (test code = (NOTE) RATIO 2238) LIPID [id number] 00:00:00 Test Item Value Reference Range Interpretation Comments CHOLESTEROL (test code = 2210) 354 MG/DL TRIGLYCERIDES (test code = 2232) 2608 MG/DL HDL CHOLESTEROL (test code = 19 MG/DL 2220) CALC LDL CHOL (test code = 2237) NOTE MG/DL RISK RATIO LDL/HDL (test code = (NOTE) RATIO 2238) HEMOGLOBIN [id number] 00:00:00 Test Item Value Reference Range Interpretation Comments HEMOGLOBIN A1c (test code = 08772) 11.5 % HEMOGLOBIN [id number] 00:00:00 Test Item Value Reference Range Interpretation Comments HEMOGLOBIN A1c (test code = 92926) 11.5 % HEMOGLOBIN [id number] 00:00:00 Test Item Value Reference Range Interpretation Comments HEMOGLOBIN A1c (test code = 19146) 11.5 % MICROALBUMIN/CREATININE, RANDOM AND [id number] 00:00:00 Test Item Value Reference Range Interpretation Comments CREATININE, URINE, CONC. (test 92.4 MG/DL code = 2072) ALBUMIN, URINE, RANDOM (test code 158.5 MG/DL = 88306) CALC ALBUMIN/CREAT, RND (test 1715 MG/G code = 33557) MICROALBUMIN/CREATININE, RANDOM AND [id number] 00:00:00 Test Item Value Reference Range Interpretation Comments CREATININE, URINE, CONC. (test 92.4 MG/DL code = 2072) ALBUMIN, URINE, RANDOM (test code 158.5 MG/DL = 77932) CALC ALBUMIN/CREAT, RND (test 1715 MG/G code = 53302) LIPID [id number] 00:00:00 Test Item Value Reference Range Interpretation Comments CHOLESTEROL (test code = 2210) 354 MG/DL TRIGLYCERIDES (test code = 2232) 2608 MG/DL HDL CHOLESTEROL (test code = 19 MG/DL 2220) CALC LDL CHOL (test code = 2237) NOTE MG/DL RISK RATIO LDL/HDL (test code = (NOTE) RATIO 2238) LIPID [id number] 00:00:00 Test Item Value Reference Range Interpretation Comments CHOLESTEROL (test code = 2210) 354 MG/DL TRIGLYCERIDES (test code = 2232) 2608 MG/DL HDL CHOLESTEROL (test code = 19 MG/DL 2220) CALC LDL CHOL (test code = 2237) NOTE MG/DL RISK RATIO LDL/HDL (test code = (NOTE) RATIO 2238) HEMOGLOBIN [id number] 00:00:00 Test Item Value Reference Range Interpretation Comments HEMOGLOBIN A1c (test code = 12301) 11.5 % HEMOGLOBIN [id number] 00:00:00 Test Item Value Reference Range Interpretation Comments HEMOGLOBIN A1c (test code = 31300) 11.5 % HEMOGLOBIN [id number] 00:00:00 Test Item Value Reference Range Interpretation Comments HEMOGLOBIN A1c (test code = 61112) 11.5 % MICROALBUMIN/CREATININE, RANDOM AND [id number] 00:00:00 Test Item Value Reference Range Interpretation Comments CREATININE, URINE, CONC. (test 92.4 MG/DL code = 2072) ALBUMIN, URINE, RANDOM (test code 158.5 MG/DL = 91374) CALC ALBUMIN/CREAT, RND (test 1715 MG/G code = 28110) MICROALBUMIN/CREATININE, RANDOM AND [id number] 00:00:00 Test Item Value Reference Range Interpretation Comments CREATININE, URINE, CONC. (test 92.4 MG/DL code = 2072) ALBUMIN, URINE, RANDOM (test code 158.5 MG/DL = 20153) CALC ALBUMIN/CREAT, RND (test 1715 MG/G code = 23672) CULTURE, [id number] 00:00:00 Test Item Value Reference Range Interpretation Comments CULTURE, URINE (test SPECIMEN NUMBER: code = 30184) [id number] CULTURE, [id number] 00:00:00 Test Item Value Reference Range Interpretation Comments CULTURE, URINE (test SPECIMEN NUMBER: code = 04898) [id number] CULTURE, [id number] 00:00:00 Test Item Value Reference Range Interpretation Comments CULTURE, URINE (test SPECIMEN NUMBER: code = 17068) [id number] CULTURE, [id number] 00:00:00 Test Item Value Reference Range Interpretation Comments CULTURE, URINE (test SPECIMEN NUMBER: code = 41944) [id number] CULTURE, [id number] 00:00:00 Test Item Value Reference Range Interpretation Comments CULTURE, URINE (test SPECIMEN NUMBER: code = 28008) [id number] CULTURE, [id number] 00:00:00 Test Item Value Reference Range Interpretation Comments CULTURE, URINE (test SPECIMEN NUMBER: code = 81855) [id number] CULTURE, [id number] 00:00:00 Test Item Value Reference Range Interpretation Comments CULTURE, URINE (test SPECIMEN NUMBER: code = 44223) [id number] CULTURE, [id number] 00:00:00 Test Item Value Reference Range Interpretation Comments CULTURE, URINE (test SPECIMEN NUMBER: code = 09315) [id number] CULTURE, [id number] 00:00:00 Test Item Value Reference Range Interpretation Comments CULTURE, URINE (test SPECIMEN NUMBER: code = 38101) [id number] CULTURE, [id number] 00:00:00 Test Item Value Reference Range Interpretation Comments CULTURE, URINE (test SPECIMEN NUMBER: code = 18429) [id number] CULTURE, [id number] 00:00:00 Test Item Value Reference Range Interpretation Comments CULTURE, URINE (test SPECIMEN NUMBER: code = 76842) [id number] CULTURE, [id number] 00:00:00 Test Item Value Reference Range Interpretation Comments CULTURE, URINE (test SPECIMEN NUMBER: code = 62638) [id number] CULTURE, [id number] 00:00:00 Test Item Value Reference Range Interpretation Comments CULTURE, URINE (test SPECIMEN NUMBER: code = 51583) [id number] CULTURE, [id number] 00:00:00 Test Item Value Reference Range Interpretation Comments CULTURE, URINE (test SPECIMEN NUMBER: code = 55363) [id number] CULTURE, [id number] 00:00:00 Test Item Value Reference Range Interpretation Comments CULTURE, URINE (test SPECIMEN NUMBER: code = 28116) [id number] CULTURE, [id number] 00:00:00 Test Item Value Reference Range Interpretation Comments CULTURE, URINE (test SPECIMEN NUMBER: code = 07189) [id number] CULTURE, [id number] 00:00:00 Test Item Value Reference Range Interpretation Comments CULTURE, URINE (test SPECIMEN NUMBER: code = 64754) [id number] CULTURE, [id number] 00:00:00 Test Item Value Reference Range Interpretation Comments CULTURE, URINE (test SPECIMEN NUMBER: code = 00118) [id number] CULTURE, [id number] 00:00:00 Test Item Value Reference Range Interpretation Comments CULTURE, URINE (test SPECIMEN NUMBER: code = 33828) [id number] CULTURE, [id number] 00:00:00 Test Item Value Reference Range Interpretation Comments CULTURE, URINE (test SPECIMEN NUMBER: code = 18584) [id number] CULTURE, [id number] 00:00:00 Test Item Value Reference Range Interpretation Comments CULTURE, URINE (test SPECIMEN NUMBER: code = 99615) [id number] VAGINAL PATHOGENS DNA [id number] 00:00:00 Test Item Value Reference Range Interpretation Comments ANDIE SPECIES (test code = ) POSITIVE G. VAGINALIS (test code = 65700) NEGATIVE T. VAGINALIS (test code = 68549) NEGATIVE VAGINAL PATHOGENS DNA [id number] 00:00:00 Test Item Value Reference Range Interpretation Comments ANDIE SPECIES (test code = 64004) POSITIVE G. VAGINALIS (test code = 31615) NEGATIVE T. VAGINALIS (test code = 41952) NEGATIVE VAGINAL PATHOGENS DNA [id number] 00:00:00 Test Item Value Reference Range Interpretation Comments ANDIE SPECIES (test code = 45016) POSITIVE G. VAGINALIS (test code = 05081) NEGATIVE T. VAGINALIS (test code = 52866) NEGATIVE VAGINAL PATHOGENS DNA [id number] 00:00:00 Test Item Value Reference Range Interpretation Comments ANDIE SPECIES (test code = 59384) POSITIVE G. VAGINALIS (test code = 30363) NEGATIVE T. VAGINALIS (test code = 19118) NEGATIVE VAGINAL PATHOGENS DNA [id number] 00:00:00 Test Item Value Reference Range Interpretation Comments ANDIE SPECIES (test code = 11436) POSITIVE G. VAGINALIS (test code = 52935) NEGATIVE T. VAGINALIS (test code = 70102) NEGATIVE VAGINAL PATHOGENS DNA [id number] 00:00:00 Test Item Value Reference Range Interpretation Comments ANDIE SPECIES (test code = 32009) POSITIVE G. VAGINALIS (test code = 25676) NEGATIVE T. VAGINALIS (test code = 80630) NEGATIVE VAGINAL PATHOGENS DNA [id number] 00:00:00 Test Item Value Reference Range Interpretation Comments ANDIE SPECIES (test code = 86019) POSITIVE G. VAGINALIS (test code = 30767) NEGATIVE T. VAGINALIS (test code = 46315) NEGATIVE VAGINAL PATHOGENS DNA [id number] 00:00:00 Test Item Value Reference Range Interpretation Comments ANDIE SPECIES (test code = 94102) POSITIVE G. VAGINALIS (test code = 83622) NEGATIVE T. VAGINALIS (test code = 35861) NEGATIVE VAGINAL PATHOGENS DNA [id number] 00:00:00 Test Item Value Reference Range Interpretation Comments ANDIE SPECIES (test code = 49884) POSITIVE G. VAGINALIS (test code = 24732) NEGATIVE T. VAGINALIS (test code = 68797) NEGATIVE VAGINAL PATHOGENS DNA [id number] 00:00:00 Test Item Value Reference Range Interpretation Comments ANDIE SPECIES (test code = 49427) POSITIVE G. VAGINALIS (test code = 20781) NEGATIVE T. VAGINALIS (test code = 66928) NEGATIVE VAGINAL PATHOGENS DNA [id number] 00:00:00 Test Item Value Reference Range Interpretation Comments ANDIE SPECIES (test code = 13375) POSITIVE G. VAGINALIS (test code = 98613) NEGATIVE T. VAGINALIS (test code = 64912) NEGATIVE VAGINAL PATHOGENS DNA [id number] 00:00:00 Test Item Value Reference Range Interpretation Comments ANDIE SPECIES (test code = 40125) POSITIVE G. VAGINALIS (test code = 36070) NEGATIVE T. VAGINALIS (test code = 61843) NEGATIVE VAGINAL PATHOGENS DNA [id number] 00:00:00 Test Item Value Reference Range Interpretation Comments ANDIE SPECIES (test code = 47565) POSITIVE G. VAGINALIS (test code = 20005) NEGATIVE T. VAGINALIS (test code = 21467) NEGATIVE VAGINAL PATHOGENS DNA [id number] 00:00:00 Test Item Value Reference Range Interpretation Comments ANDIE SPECIES (test code = 18416) POSITIVE G. VAGINALIS (test code = 48529) NEGATIVE T. VAGINALIS (test code = 05844) NEGATIVE VAGINAL PATHOGENS DNA [id number] 00:00:00 Test Item Value Reference Range Interpretation Comments ANDIE SPECIES (test code = 69070) POSITIVE G. VAGINALIS (test code = 71935) NEGATIVE T. VAGINALIS (test code = 57943) NEGATIVE VAGINAL PATHOGENS DNA [id number] 00:00:00 Test Item Value Reference Range Interpretation Comments ANDIE SPECIES (test code = 73808) POSITIVE G. VAGINALIS (test code = 68505) NEGATIVE T. VAGINALIS (test code = 25993) NEGATIVE VAGINAL PATHOGENS DNA [id number] 00:00:00 Test Item Value Reference Range Interpretation Comments ANDIE SPECIES (test code = 91187) POSITIVE G. VAGINALIS (test code = 31327) NEGATIVE T. VAGINALIS (test code = 90568) NEGATIVE VAGINAL PATHOGENS DNA [id number] 00:00:00 Test Item Value Reference Range Interpretation Comments ANDIE SPECIES (test code = 36063) POSITIVE G. VAGINALIS (test code = 37836) NEGATIVE T. VAGINALIS (test code = 40353) NEGATIVE VAGINAL PATHOGENS DNA [id number] 00:00:00 Test Item Value Reference Range Interpretation Comments ANDIE SPECIES (test code = 61571) POSITIVE G. VAGINALIS (test code = 96969) NEGATIVE T. VAGINALIS (test code = 85427) NEGATIVE VAGINAL PATHOGENS DNA [id number] 00:00:00 Test Item Value Reference Range Interpretation Comments ANDIE SPECIES (test code = 92961) POSITIVE G. VAGINALIS (test code = 84636) NEGATIVE T. VAGINALIS (test code = 83483) NEGATIVE VAGINAL PATHOGENS DNA [id number] 00:00:00 Test Item Value Reference Range Interpretation Comments ANDIE SPECIES (test code = 92288) POSITIVE G. VAGINALIS (test code = 14974) NEGATIVE T. VAGINALIS (test code = 78573) NEGATIVE VAGINAL PATHOGENS DNA [id number] 00:00:00 Test Item Value Reference Range Interpretation Comments ANDIE SPECIES (test code = 34118) NEGATIVE G. VAGINALIS (test code = 61276) NEGATIVE T. VAGINALIS (test code = 00884) NEGATIVE VAGINAL PATHOGENS DNA [id number] 00:00:00 Test Item Value Reference Range Interpretation Comments ANDIE SPECIES (test code = 46357) NEGATIVE G. VAGINALIS (test code = 64101) NEGATIVE T. VAGINALIS (test code = 42950) NEGATIVE VAGINAL PATHOGENS DNA [id number] 00:00:00 Test Item Value Reference Range Interpretation Comments ANDIE SPECIES (test code = 84204) NEGATIVE G. VAGINALIS (test code = 51442) NEGATIVE T. VAGINALIS (test code = 18272) NEGATIVE VAGINAL PATHOGENS DNA [id number] 00:00:00 Test Item Value Reference Range Interpretation Comments ANDIE SPECIES (test code = 29428) NEGATIVE G. VAGINALIS (test code = 94446) NEGATIVE T. VAGINALIS (test code = 33634) NEGATIVE VAGINAL PATHOGENS DNA [id number] 00:00:00 Test Item Value Reference Range Interpretation Comments ANDIE SPECIES (test code = 10221) NEGATIVE G. VAGINALIS (test code = 12081) NEGATIVE T. VAGINALIS (test code = 68838) NEGATIVE VAGINAL PATHOGENS DNA [id number] 00:00:00 Test Item Value Reference Range Interpretation Comments ANDIE SPECIES (test code = 16094) NEGATIVE G. VAGINALIS (test code = 81516) NEGATIVE T. VAGINALIS (test code = 28362) NEGATIVE VAGINAL PATHOGENS DNA [id number] 00:00:00 Test Item Value Reference Range Interpretation Comments ANDIE SPECIES (test code = 76804) NEGATIVE G. VAGINALIS (test code = 57302) NEGATIVE T. VAGINALIS (test code = 54415) NEGATIVE VAGINAL PATHOGENS DNA [id number] 00:00:00 Test Item Value Reference Range Interpretation Comments ANDIE SPECIES (test code = 53239) NEGATIVE G. VAGINALIS (test code = 20670) NEGATIVE T. VAGINALIS (test code = 03688) NEGATIVE VAGINAL PATHOGENS DNA [id number] 00:00:00 Test Item Value Reference Range Interpretation Comments ANDIE SPECIES (test code = 90821) NEGATIVE G. VAGINALIS (test code = 87238) NEGATIVE T. VAGINALIS (test code = 33461) NEGATIVE VAGINAL PATHOGENS DNA [id number] 00:00:00 Test Item Value Reference Range Interpretation Comments ANDIE SPECIES (test code = 26196) NEGATIVE G. VAGINALIS (test code = 49341) NEGATIVE T. VAGINALIS (test code = 69308) NEGATIVE VAGINAL PATHOGENS DNA [id number] 00:00:00 Test Item Value Reference Range Interpretation Comments ANDIE SPECIES (test code = 95520) NEGATIVE G. VAGINALIS (test code = 51063) NEGATIVE T. VAGINALIS (test code = 08739) NEGATIVE VAGINAL PATHOGENS DNA [id number] 00:00:00 Test Item Value Reference Range Interpretation Comments ANDIE SPECIES (test code = 89926) NEGATIVE G. VAGINALIS (test code = 44609) NEGATIVE T. VAGINALIS (test code = 12009) NEGATIVE VAGINAL PATHOGENS DNA [id number] 00:00:00 Test Item Value Reference Range Interpretation Comments ANDIE SPECIES (test code = 37740) NEGATIVE G. VAGINALIS (test code = 89001) NEGATIVE T. VAGINALIS (test code = 42044) NEGATIVE VAGINAL PATHOGENS DNA [id number] 00:00:00 Test Item Value Reference Range Interpretation Comments ANDIE SPECIES (test code = 24958) NEGATIVE G. VAGINALIS (test code = 09105) NEGATIVE T. VAGINALIS (test code = 16848) NEGATIVE VAGINAL PATHOGENS DNA [id number] 00:00:00 Test Item Value Reference Range Interpretation Comments ANDIE SPECIES (test code = 01826) NEGATIVE G. VAGINALIS (test code = 07917) NEGATIVE T. VAGINALIS (test code = 55742) NEGATIVE VAGINAL PATHOGENS DNA [id number] 00:00:00 Test Item Value Reference Range Interpretation Comments ANDIE SPECIES (test code = 55801) NEGATIVE G. VAGINALIS (test code = 81643) NEGATIVE T. VAGINALIS (test code = 63594) NEGATIVE VAGINAL PATHOGENS DNA [id number] 00:00:00 Test Item Value Reference Range Interpretation Comments ANDIE SPECIES (test code = 93480) NEGATIVE G. VAGINALIS (test code = 81995) NEGATIVE T. VAGINALIS (test code = 54030) NEGATIVE VAGINAL PATHOGENS DNA [id number] 00:00:00 Test Item Value Reference Range Interpretation Comments ANDIE SPECIES (test code = 32564) NEGATIVE G. VAGINALIS (test code = 45921) NEGATIVE T. VAGINALIS (test code = 50722) NEGATIVE VAGINAL PATHOGENS DNA [id number] 00:00:00 Test Item Value Reference Range Interpretation Comments ANDIE SPECIES (test code = 66532) NEGATIVE G. VAGINALIS (test code = 82229) NEGATIVE T. VAGINALIS (test code = 54454) NEGATIVE VAGINAL PATHOGENS DNA [id number] 00:00:00 Test Item Value Reference Range Interpretation Comments ANDIE SPECIES (test code = 61497) NEGATIVE G. VAGINALIS (test code = 01396) NEGATIVE T. VAGINALIS (test code = 47725) NEGATIVE VAGINAL PATHOGENS DNA [id number] 00:00:00 Test Item Value Reference Range Interpretation Comments ANDIE SPECIES (test code = 96526) NEGATIVE G. VAGINALIS (test code = 38081) NEGATIVE T. VAGINALIS (test code = 17371) NEGATIVE VAGINAL PATHOGENS DNA [id number] 00:00:00 Test Item Value Reference Range Interpretation Comments ANDIE SPECIES (test code = 17008) NEGATIVE G. VAGINALIS (test code = 29675) POSITIVE T. VAGINALIS (test code = 68360) NEGATIVE VAGINAL PATHOGENS DNA [id number] 00:00:00 Test Item Value Reference Range Interpretation Comments ANDIE SPECIES (test code = 89999) NEGATIVE G. VAGINALIS (test code = 07899) POSITIVE T. VAGINALIS (test code = 19583) NEGATIVE VAGINAL PATHOGENS DNA [id number] 00:00:00 Test Item Value Reference Range Interpretation Comments ANDIE SPECIES (test code = 57497) NEGATIVE G. VAGINALIS (test code = 11510) POSITIVE T. VAGINALIS (test code = 64052) NEGATIVE VAGINAL PATHOGENS DNA [id number] 00:00:00 Test Item Value Reference Range Interpretation Comments ANDIE SPECIES (test code = 88681) NEGATIVE G. VAGINALIS (test code = 68102) POSITIVE T. VAGINALIS (test code = 44444) NEGATIVE VAGINAL PATHOGENS DNA [id number] 00:00:00 Test Item Value Reference Range Interpretation Comments ANDIE SPECIES (test code = 04722) NEGATIVE G. VAGINALIS (test code = 17391) POSITIVE T. VAGINALIS (test code = 48778) NEGATIVE VAGINAL PATHOGENS DNA [id number] 00:00:00 Test Item Value Reference Range Interpretation Comments ANDIE SPECIES (test code = 74598) NEGATIVE G. VAGINALIS (test code = 71361) POSITIVE T. VAGINALIS (test code = 12103) NEGATIVE VAGINAL PATHOGENS DNA [id number] 00:00:00 Test Item Value Reference Range Interpretation Comments ANDIE SPECIES (test code = 41783) NEGATIVE G. VAGINALIS (test code = 90022) POSITIVE T. VAGINALIS (test code = 13269) NEGATIVE VAGINAL PATHOGENS DNA [id number] 00:00:00 Test Item Value Reference Range Interpretation Comments ANDIE SPECIES (test code = 58990) NEGATIVE G. VAGINALIS (test code = 35151) POSITIVE T. VAGINALIS (test code = 01007) NEGATIVE VAGINAL PATHOGENS DNA [id number] 00:00:00 Test Item Value Reference Range Interpretation Comments ANDIE SPECIES (test code = 80784) NEGATIVE G. VAGINALIS (test code = 93961) POSITIVE T. VAGINALIS (test code = 49517) NEGATIVE VAGINAL PATHOGENS DNA [id number] 00:00:00 Test Item Value Reference Range Interpretation Comments ANDIE SPECIES (test code = 93640) NEGATIVE G. VAGINALIS (test code = 08317) POSITIVE T. VAGINALIS (test code = 87479) NEGATIVE VAGINAL PATHOGENS DNA [id number] 00:00:00 Test Item Value Reference Range Interpretation Comments ANDIE SPECIES (test code = 53707) NEGATIVE G. VAGINALIS (test code = 48136) POSITIVE T. VAGINALIS (test code = 02272) NEGATIVE VAGINAL PATHOGENS DNA [id number] 00:00:00 Test Item Value Reference Range Interpretation Comments ANDIE SPECIES (test code = 62381) NEGATIVE G. VAGINALIS (test code = 71766) POSITIVE T. VAGINALIS (test code = 47282) NEGATIVE VAGINAL PATHOGENS DNA [id number] 00:00:00 Test Item Value Reference Range Interpretation Comments ANDIE SPECIES (test code = 53471) NEGATIVE G. VAGINALIS (test code = 40378) POSITIVE T. VAGINALIS (test code = 05012) NEGATIVE VAGINAL PATHOGENS DNA [id number] 00:00:00 Test Item Value Reference Range Interpretation Comments ANDIE SPECIES (test code = 71245) NEGATIVE G. VAGINALIS (test code = 66296) POSITIVE T. VAGINALIS (test code = 91047) NEGATIVE VAGINAL PATHOGENS DNA [id number] 00:00:00 Test Item Value Reference Range Interpretation Comments ANDIE SPECIES (test code = 67065) NEGATIVE G. VAGINALIS (test code = 66937) POSITIVE T. VAGINALIS (test code = 56986) NEGATIVE VAGINAL PATHOGENS DNA [id number] 00:00:00 Test Item Value Reference Range Interpretation Comments ANDIE SPECIES (test code = 51067) NEGATIVE G. VAGINALIS (test code = 04093) POSITIVE T. VAGINALIS (test code = 00810) NEGATIVE VAGINAL PATHOGENS DNA [id number] 00:00:00 Test Item Value Reference Range Interpretation Comments ANDIE SPECIES (test code = 69658) NEGATIVE G. VAGINALIS (test code = 17187) POSITIVE T. VAGINALIS (test code = 13060) NEGATIVE VAGINAL PATHOGENS DNA [id number] 00:00:00 Test Item Value Reference Range Interpretation Comments ANDIE SPECIES (test code = 27315) NEGATIVE G. VAGINALIS (test code = 95517) POSITIVE T. VAGINALIS (test code = 12810) NEGATIVE VAGINAL PATHOGENS DNA [id number] 00:00:00 Test Item Value Reference Range Interpretation Comments ANDIE SPECIES (test code = 11753) NEGATIVE G. VAGINALIS (test code = 24429) POSITIVE T. VAGINALIS (test code = 79793) NEGATIVE VAGINAL PATHOGENS DNA [id number] 00:00:00 Test Item Value Reference Range Interpretation Comments ANDIE SPECIES (test code = 27381) NEGATIVE G. VAGINALIS (test code = 30759) POSITIVE T. VAGINALIS (test code = 70325) NEGATIVE VAGINAL PATHOGENS DNA [id number] 00:00:00 Test Item Value Reference Range Interpretation Comments ANDIE SPECIES (test code = 11839) NEGATIVE G. VAGINALIS (test code = 19780) POSITIVE T. VAGINALIS (test code = 84423) NEGATIVE COMPREHENSIVE METABOLIC [id number] 00:00:00 Test Item Value Reference Range Interpretation Comments GLUCOSE (test code = 2217) 353 MG/DL BUN (test code = 2208) 27 MG/DL CREATININE (test code = 2214) 0.90 MG/DL eGFR AMER. (test code 92 ML/MIN/1.73 = 12364) eGFR NON- AMER. (test 79 ML/MIN/1.73 code = 74991) CALC BUN/CREAT (test code = 30 RATIO [...] code = 2219) 18 U/L COMPREHENSIVE METABOLIC [id number] 00:00:00 Test Item Value Reference Range Interpretation Comments GLUCOSE (test code = 2217) 353 MG/DL BUN (test code = 2208) 27 MG/DL CREATININE (test code = 2214) 0.90 MG/DL eGFR AMER. (test code 92 ML/MIN/1.73 = 67545) eGFR NON- AMER. (test 79 ML/MIN/1.73 code = 89414) CALC BUN/CREAT (test code = 30 RATIO [...] (test code = 2219) 18 U/L LIPID [id number] 00:00:00 Test Item Value Reference Range Interpretation Comments CHOLESTEROL (test code = 2210) 412 MG/DL TRIGLYCERIDES (test code = 2232) 2520 MG/DL HDL CHOLESTEROL (test code = 16 MG/DL 2220) CALC LDL CHOL (test code = 2237) NOTE MG/DL RISK RATIO LDL/HDL (test code = (NOTE) RATIO 2238) LIPID [id number] 00:00:00 Test Item Value Reference Range Interpretation Comments CHOLESTEROL (test code = 2210) 412 MG/DL TRIGLYCERIDES (test code = 2232) 2520 MG/DL HDL CHOLESTEROL (test code = 16 MG/DL 2220) CALC LDL CHOL (test code = 2237) NOTE MG/DL RISK RATIO LDL/HDL (test code = (NOTE) RATIO 2238) HEMOGLOBIN [id number] 00:00:00 Test Item Value Reference Range Interpretation Comments HEMOGLOBIN A1c (test code = 49671) 10.7 % HEMOGLOBIN [id number] 00:00:00 Test Item Value Reference Range Interpretation Comments HEMOGLOBIN A1c (test code = 34650) 10.7 % HEMOGLOBIN [id number] 00:00:00 Test Item Value Reference Range Interpretation Comments HEMOGLOBIN A1c (test code = 15661) 10.7 % [id number] 00:00:00 Test Item Value Reference Range Interpretation Comments TSH, THIRD GENERATION (test code 0.777 UIU/ML = 2821) [id number] 00:00:00 Test Item Value Reference Range Interpretation Comments TSH, THIRD GENERATION (test code 0.777 UIU/ML = 2821) [id number] 00:00:00 Test Item Value Reference Range Interpretation Comments TSH, THIRD GENERATION (test code 0.777 UIU/ML = 2821) MICROALBUMIN/CREATININE, RANDOM AND [id number] 00:00:00 Test Item Value Reference Range Interpretation Comments CREATININE, URINE, CONC. (test 127.3 MG/DL code = 2072) ALBUMIN, URINE, RANDOM (test code 65.2 MG/DL = 03066) CALC ALBUMIN/CREAT, RND (test 512 MG/G code = 34161) MICROALBUMIN/CREATININE, RANDOM AND [id number] 00:00:00 Test Item Value Reference Range Interpretation Comments CREATININE, URINE, CONC. (test 127.3 MG/DL code = 2072) ALBUMIN, URINE, RANDOM (test code 65.2 MG/DL = 76664) CALC ALBUMIN/CREAT, RND (test 512 MG/G code = 55714) COMPREHENSIVE METABOLIC [id number] 00:00:00 Test Item Value Reference Range Interpretation Comments GLUCOSE (test code = 2217) 353 MG/DL BUN (test code = 2208) 27 MG/DL CREATININE (test code = 2214) 0.90 MG/DL eGFR AMER. (test code 92 ML/MIN/1.73 = 87106) eGFR NON- AMER. (test 79 ML/MIN/1.73 code = 51124) CALC BUN/CREAT (test code = 30 RATIO [...] code = 2219) 18 U/L COMPREHENSIVE METABOLIC [id number] 00:00:00 Test Item Value Reference Range Interpretation Comments GLUCOSE (test code = 2217) 353 MG/DL BUN (test code = 2208) 27 MG/DL CREATININE (test code = 2214) 0.90 MG/DL eGFR AMER. (test code 92 ML/MIN/1.73 = 50959) eGFR NON- AMER. (test 79 ML/MIN/1.73 code = 20743) CALC BUN/CREAT (test code = 30 RATIO [...] (test code = 2219) 18 U/L LIPID [id number] 00:00:00 Test Item Value Reference Range Interpretation Comments CHOLESTEROL (test code = 2210) 412 MG/DL TRIGLYCERIDES (test code = 2232) 2520 MG/DL HDL CHOLESTEROL (test code = 16 MG/DL 2220) CALC LDL CHOL (test code = 2237) NOTE MG/DL RISK RATIO LDL/HDL (test code = (NOTE) RATIO 2238) LIPID [id number] 00:00:00 Test Item Value Reference Range Interpretation Comments CHOLESTEROL (test code = 2210) 412 MG/DL TRIGLYCERIDES (test code = 2232) 2520 MG/DL HDL CHOLESTEROL (test code = 16 MG/DL 2220) CALC LDL CHOL (test code = 2237) NOTE MG/DL RISK RATIO LDL/HDL (test code = (NOTE) RATIO 2238) HEMOGLOBIN [id number] 00:00:00 Test Item Value Reference Range Interpretation Comments HEMOGLOBIN A1c (test code = 16388) 10.7 % HEMOGLOBIN [id number] 00:00:00 Test Item Value Reference Range Interpretation Comments HEMOGLOBIN A1c (test code = 49868) 10.7 % HEMOGLOBIN [id number] 00:00:00 Test Item Value Reference Range Interpretation Comments HEMOGLOBIN A1c (test code = 21925) 10.7 % [id number] 00:00:00 Test Item Value Reference Range Interpretation Comments TSH, THIRD GENERATION (test code 0.777 UIU/ML = 2821) [id number] 00:00:00 Test Item Value Reference Range Interpretation Comments TSH, THIRD GENERATION (test code 0.777 UIU/ML = 2821) [id number] 00:00:00 Test Item Value Reference Range Interpretation Comments TSH, THIRD GENERATION (test code 0.777 UIU/ML = 2821) MICROALBUMIN/CREATININE, RANDOM AND [id number] 00:00:00 Test Item Value Reference Range Interpretation Comments CREATININE, URINE, CONC. (test 127.3 MG/DL code = 2072) ALBUMIN, URINE, RANDOM (test code 65.2 MG/DL = 69238) CALC ALBUMIN/CREAT, RND (test 512 MG/G code = 20578) MICROALBUMIN/CREATININE, RANDOM AND [id number] 00:00:00 Test Item Value Reference Range Interpretation Comments CREATININE, URINE, CONC. (test 127.3 MG/DL code = 2072) ALBUMIN, URINE, RANDOM (test code 65.2 MG/DL = 87298) CALC ALBUMIN/CREAT, RND (test 512 MG/G code = 97926) COMPREHENSIVE METABOLIC [id number] 00:00:00 Test Item Value Reference Range Interpretation Comments GLUCOSE (test code = 2217) 353 MG/DL BUN (test code = 2208) 27 MG/DL CREATININE (test code = 2214) 0.90 MG/DL eGFR AMER. (test code 92 ML/MIN/1.73 = 85987) eGFR NON- AMER. (test 79 ML/MIN/1.73 code = 83314) CALC BUN/CREAT (test code = 30 RATIO [...] code = 2219) 18 U/L COMPREHENSIVE METABOLIC [id number] 00:00:00 Test Item Value Reference Range Interpretation Comments GLUCOSE (test code = 2217) 353 MG/DL BUN (test code = 2208) 27 MG/DL CREATININE (test code = 2214) 0.90 MG/DL eGFR AMER. (test code 92 ML/MIN/1.73 = 05186) eGFR NON- AMER. (test 79 ML/MIN/1.73 code = 70091) CALC BUN/CREAT (test code = 30 RATIO [...] (test code = 2219) 18 U/L LIPID [id number] 00:00:00 Test Item Value Reference Range Interpretation Comments CHOLESTEROL (test code = 2210) 412 MG/DL TRIGLYCERIDES (test code = 2232) 2520 MG/DL HDL CHOLESTEROL (test code = 16 MG/DL 2220) CALC LDL CHOL (test code = 2237) NOTE MG/DL RISK RATIO LDL/HDL (test code = (NOTE) RATIO 2238) LIPID [id number] 00:00:00 Test Item Value Reference Range Interpretation Comments CHOLESTEROL (test code = 2210) 412 MG/DL TRIGLYCERIDES (test code = 2232) 2520 MG/DL HDL CHOLESTEROL (test code = 16 MG/DL 2220) CALC LDL CHOL (test code = 2237) NOTE MG/DL RISK RATIO LDL/HDL (test code = (NOTE) RATIO 2238) HEMOGLOBIN [id number] 00:00:00 Test Item Value Reference Range Interpretation Comments HEMOGLOBIN A1c (test code = 77452) 10.7 % HEMOGLOBIN [id number] 00:00:00 Test Item Value Reference Range Interpretation Comments HEMOGLOBIN A1c (test code = 82436) 10.7 % HEMOGLOBIN [id number] 00:00:00 Test Item Value Reference Range Interpretation Comments HEMOGLOBIN A1c (test code = 23689) 10.7 % [id number] 00:00:00 Test Item Value Reference Range Interpretation Comments TSH, THIRD GENERATION (test code 0.777 UIU/ML = 2821) [id number] 00:00:00 Test Item Value Reference Range Interpretation Comments TSH, THIRD GENERATION (test code 0.777 UIU/ML = 2821) [id number] 00:00:00 Test Item Value Reference Range Interpretation Comments TSH, THIRD GENERATION (test code 0.777 UIU/ML = 2821) MICROALBUMIN/CREATININE, RANDOM AND [id number] 00:00:00 Test Item Value Reference Range Interpretation Comments CREATININE, URINE, CONC. (test 127.3 MG/DL code = 2072) ALBUMIN, URINE, RANDOM (test code 65.2 MG/DL = 10910) CALC ALBUMIN/CREAT, RND (test 512 MG/G code = 00420) MICROALBUMIN/CREATININE, RANDOM AND [id number] 00:00:00 Test Item Value Reference Range Interpretation Comments CREATININE, URINE, CONC. (test 127.3 MG/DL code = 2072) ALBUMIN, URINE, RANDOM (test code 65.2 MG/DL = 48702) CALC ALBUMIN/CREAT, RND (test 512 MG/G code = 24181) COMPREHENSIVE METABOLIC [id number] 00:00:00 Test Item Value Reference Range Interpretation Comments GLUCOSE (test code = 2217) 353 MG/DL BUN (test code = 2208) 27 MG/DL CREATININE (test code = 2214) 0.90 MG/DL eGFR AMER. (test code 92 ML/MIN/1.73 = 05454) eGFR NON- AMER. (test 79 ML/MIN/1.73 code = 61793) CALC BUN/CREAT (test code = 30 RATIO [...] code = 2219) 18 U/L COMPREHENSIVE METABOLIC [id number] 00:00:00 Test Item Value Reference Range Interpretation Comments GLUCOSE (test code = 2217) 353 MG/DL BUN (test code = 2208) 27 MG/DL CREATININE (test code = 2214) 0.90 MG/DL eGFR AMER. (test code 92 ML/MIN/1.73 = 78179) eGFR NON- AMER. (test 79 ML/MIN/1.73 code = 80413) CALC BUN/CREAT (test code = 30 RATIO [...] (test code = 2219) 18 U/L LIPID [id number] 00:00:00 Test Item Value Reference Range Interpretation Comments CHOLESTEROL (test code = 2210) 412 MG/DL TRIGLYCERIDES (test code = 2232) 2520 MG/DL HDL CHOLESTEROL (test code = 16 MG/DL 2220) CALC LDL CHOL (test code = 2237) NOTE MG/DL RISK RATIO LDL/HDL (test code = (NOTE) RATIO 2238) LIPID [id number] 00:00:00 Test Item Value Reference Range Interpretation Comments CHOLESTEROL (test code = 2210) 412 MG/DL TRIGLYCERIDES (test code = 2232) 2520 MG/DL HDL CHOLESTEROL (test code = 16 MG/DL 2220) CALC LDL CHOL (test code = 2237) NOTE MG/DL RISK RATIO LDL/HDL (test code = (NOTE) RATIO 2238) HEMOGLOBIN [id number] 00:00:00 Test Item Value Reference Range Interpretation Comments HEMOGLOBIN A1c (test code = 90122) 10.7 % HEMOGLOBIN [id number] 00:00:00 Test Item Value Reference Range Interpretation Comments HEMOGLOBIN A1c (test code = 34846) 10.7 % HEMOGLOBIN [id number] 00:00:00 Test Item Value Reference Range Interpretation Comments HEMOGLOBIN A1c (test code = 41013) 10.7 % [id number] 00:00:00 Test Item Value Reference Range Interpretation Comments TSH, THIRD GENERATION (test code 0.777 UIU/ML = 2821) [id number] 00:00:00 Test Item Value Reference Range Interpretation Comments TSH, THIRD GENERATION (test code 0.777 UIU/ML = 2821) [id number] 00:00:00 Test Item Value Reference Range Interpretation Comments TSH, THIRD GENERATION (test code 0.777 UIU/ML = 2821) MICROALBUMIN/CREATININE, RANDOM AND [id number] 00:00:00 Test Item Value Reference Range Interpretation Comments CREATININE, URINE, CONC. (test 127.3 MG/DL code = 2072) ALBUMIN, URINE, RANDOM (test code 65.2 MG/DL = 47312) CALC ALBUMIN/CREAT, RND (test 512 MG/G code = 28172) MICROALBUMIN/CREATININE, RANDOM AND [id number] 00:00:00 Test Item Value Reference Range Interpretation Comments CREATININE, URINE, CONC. (test 127.3 MG/DL code = 2072) ALBUMIN, URINE, RANDOM (test code 65.2 MG/DL = 54598) CALC ALBUMIN/CREAT, RND (test 512 MG/G code = 64748) COMPREHENSIVE METABOLIC [id number] 00:00:00 Test Item Value Reference Range Interpretation Comments GLUCOSE (test code = 2217) 353 MG/DL BUN (test code = 2208) 27 MG/DL CREATININE (test code = 2214) 0.90 MG/DL eGFR AMER. (test code 92 ML/MIN/1.73 = 29108) eGFR NON- AMER. (test 79 ML/MIN/1.73 code = 39754) CALC BUN/CREAT (test code = 30 RATIO [...] code = 2219) 18 U/L COMPREHENSIVE METABOLIC [id number] 00:00:00 Test Item Value Reference Range Interpretation Comments GLUCOSE (test code = 2217) 353 MG/DL BUN (test code = 2208) 27 MG/DL CREATININE (test code = 2214) 0.90 MG/DL eGFR AMER. (test code 92 ML/MIN/1.73 = 90319) eGFR NON- AMER. (test 79 ML/MIN/1.73 code = 28430) CALC BUN/CREAT (test code = 30 RATIO [...] (test code = 2219) 18 U/L LIPID [id number] 00:00:00 Test Item Value Reference Range Interpretation Comments CHOLESTEROL (test code = 2210) 412 MG/DL TRIGLYCERIDES (test code = 2232) 2520 MG/DL HDL CHOLESTEROL (test code = 16 MG/DL 2220) CALC LDL CHOL (test code = 2237) NOTE MG/DL RISK RATIO LDL/HDL (test code = (NOTE) RATIO 2238) LIPID [id number] 00:00:00 Test Item Value Reference Range Interpretation Comments CHOLESTEROL (test code = 2210) 412 MG/DL TRIGLYCERIDES (test code = 2232) 2520 MG/DL HDL CHOLESTEROL (test code = 16 MG/DL 2220) CALC LDL CHOL (test code = 2237) NOTE MG/DL RISK RATIO LDL/HDL (test code = (NOTE) RATIO 2238) HEMOGLOBIN [id number] 00:00:00 Test Item Value Reference Range Interpretation Comments HEMOGLOBIN A1c (test code = 45055) 10.7 % HEMOGLOBIN [id number] 00:00:00 Test Item Value Reference Range Interpretation Comments HEMOGLOBIN A1c (test code = 68878) 10.7 % HEMOGLOBIN [id number] 00:00:00 Test Item Value Reference Range Interpretation Comments HEMOGLOBIN A1c (test code = 21340) 10.7 % [id number] 00:00:00 Test Item Value Reference Range Interpretation Comments TSH, THIRD GENERATION (test code 0.777 UIU/ML = 2821) [id number] 00:00:00 Test Item Value Reference Range Interpretation Comments TSH, THIRD GENERATION (test code 0.777 UIU/ML = 2821) [id number] 00:00:00 Test Item Value Reference Range Interpretation Comments TSH, THIRD GENERATION (test code 0.777 UIU/ML = 2821) MICROALBUMIN/CREATININE, RANDOM AND [id number] 00:00:00 Test Item Value Reference Range Interpretation Comments CREATININE, URINE, CONC. (test 127.3 MG/DL code = 2072) ALBUMIN, URINE, RANDOM (test code 65.2 MG/DL = 91822) CALC ALBUMIN/CREAT, RND (test 512 MG/G code = 69527) MICROALBUMIN/CREATININE, RANDOM AND [id number] 00:00:00 Test Item Value Reference Range Interpretation Comments CREATININE, URINE, CONC. (test 127.3 MG/DL code = 2072) ALBUMIN, URINE, RANDOM (test code 65.2 MG/DL = 83004) CALC ALBUMIN/CREAT, RND (test 512 MG/G code = 90602) COMPREHENSIVE METABOLIC [id number] 00:00:00 Test Item Value Reference Range Interpretation Comments GLUCOSE (test code = 2217) 353 MG/DL BUN (test code = 2208) 27 MG/DL CREATININE (test code = 2214) 0.90 MG/DL eGFR AMER. (test code 92 ML/MIN/1.73 = 22260) eGFR NON- AMER. (test 79 ML/MIN/1.73 code = 54022) CALC BUN/CREAT (test code = 30 RATIO [...] code = 2219) 18 U/L COMPREHENSIVE METABOLIC [id number] 00:00:00 Test Item Value Reference Range Interpretation Comments GLUCOSE (test code = 2217) 353 MG/DL BUN (test code = 2208) 27 MG/DL CREATININE (test code = 2214) 0.90 MG/DL eGFR AMER. (test code 92 ML/MIN/1.73 = 58778) eGFR NON- AMER. (test 79 ML/MIN/1.73 code = 44464) CALC BUN/CREAT (test code = 30 RATIO [...] (test code = 2219) 18 U/L LIPID [id number] 00:00:00 Test Item Value Reference Range Interpretation Comments CHOLESTEROL (test code = 2210) 412 MG/DL TRIGLYCERIDES (test code = 2232) 2520 MG/DL HDL CHOLESTEROL (test code = 16 MG/DL 2220) CALC LDL CHOL (test code = 2237) NOTE MG/DL RISK RATIO LDL/HDL (test code = (NOTE) RATIO 2238) LIPID [id number] 00:00:00 Test Item Value Reference Range Interpretation Comments CHOLESTEROL (test code = 2210) 412 MG/DL TRIGLYCERIDES (test code = 2232) 2520 MG/DL HDL CHOLESTEROL (test code = 16 MG/DL 2220) CALC LDL CHOL (test code = 2237) NOTE MG/DL RISK RATIO LDL/HDL (test code = (NOTE) RATIO 2238) HEMOGLOBIN [id number] 00:00:00 Test Item Value Reference Range Interpretation Comments HEMOGLOBIN A1c (test code = 91631) 10.7 % HEMOGLOBIN [id number] 00:00:00 Test Item Value Reference Range Interpretation Comments HEMOGLOBIN A1c (test code = 31959) 10.7 % HEMOGLOBIN [id number] 00:00:00 Test Item Value Reference Range Interpretation Comments HEMOGLOBIN A1c (test code = 05867) 10.7 % [id number] 00:00:00 Test Item Value Reference Range Interpretation Comments TSH, THIRD GENERATION (test code 0.777 UIU/ML = 2821) [id number] 00:00:00 Test Item Value Reference Range Interpretation Comments TSH, THIRD GENERATION (test code 0.777 UIU/ML = 2821) [id number] 00:00:00 Test Item Value Reference Range Interpretation Comments TSH, THIRD GENERATION (test code 0.777 UIU/ML = 2821) MICROALBUMIN/CREATININE, RANDOM AND [id number] 00:00:00 Test Item Value Reference Range Interpretation Comments CREATININE, URINE, CONC. (test 127.3 MG/DL code = 2072) ALBUMIN, URINE, RANDOM (test code 65.2 MG/DL = 03710) CALC ALBUMIN/CREAT, RND (test 512 MG/G code = 92226) MICROALBUMIN/CREATININE, RANDOM AND [id number] 00:00:00 Test Item Value Reference Range Interpretation Comments CREATININE, URINE, CONC. (test 127.3 MG/DL code = 2072) ALBUMIN, URINE, RANDOM (test code 65.2 MG/DL = 83211) CALC ALBUMIN/CREAT, RND (test 512 MG/G code = 72398) COMPREHENSIVE METABOLIC [id number] 00:00:00 Test Item Value Reference Range Interpretation Comments GLUCOSE (test code = 2217) 353 MG/DL BUN (test code = 2208) 27 MG/DL CREATININE (test code = 2214) 0.90 MG/DL eGFR AMER. (test code 92 ML/MIN/1.73 = 82224) eGFR NON- AMER. (test 79 ML/MIN/1.73 code = 01329) CALC BUN/CREAT (test code = 30 RATIO [...] code = 2219) 18 U/L COMPREHENSIVE METABOLIC [id number] 00:00:00 Test Item Value Reference Range Interpretation Comments GLUCOSE (test code = 2217) 353 MG/DL BUN (test code = 2208) 27 MG/DL CREATININE (test code = 2214) 0.90 MG/DL eGFR AMER. (test code 92 ML/MIN/1.73 = 17219) eGFR NON- AMER. (test 79 ML/MIN/1.73 code = 33898) CALC BUN/CREAT (test code = 30 RATIO [...] (test code = 2219) 18 U/L LIPID [id number] 00:00:00 Test Item Value Reference Range Interpretation Comments CHOLESTEROL (test code = 2210) 412 MG/DL TRIGLYCERIDES (test code = 2232) 2520 MG/DL HDL CHOLESTEROL (test code = 16 MG/DL 2220) CALC LDL CHOL (test code = 2237) NOTE MG/DL RISK RATIO LDL/HDL (test code = (NOTE) RATIO 2238) LIPID [id number] 00:00:00 Test Item Value Reference Range Interpretation Comments CHOLESTEROL (test code = 2210) 412 MG/DL TRIGLYCERIDES (test code = 2232) 2520 MG/DL HDL CHOLESTEROL (test code = 16 MG/DL 2220) CALC LDL CHOL (test code = 2237) NOTE MG/DL RISK RATIO LDL/HDL (test code = (NOTE) RATIO 2238) HEMOGLOBIN [id number] 00:00:00 Test Item Value Reference Range Interpretation Comments HEMOGLOBIN A1c (test code = 25011) 10.7 % HEMOGLOBIN [id number] 00:00:00 Test Item Value Reference Range Interpretation Comments HEMOGLOBIN A1c (test code = 00900) 10.7 % COMPREHENSIVE METABOLIC [id number] 00:00:00 Test Item Value Reference Range Interpretation Comments GLUCOSE (test code = 2217) 353 MG/DL BUN (test code = 2208) 27 MG/DL CREATININE (test code = 2214) 0.90 MG/DL eGFR AMER. (test code 92 ML/MIN/1.73 = 04132) eGFR NON- AMER. (test 79 ML/MIN/1.73 code = 93683) CALC BUN/CREAT (test code = 30 RATIO [...] (test code = 2219) 18 U/L HEMOGLOBIN [id number] 00:00:00 Test Item Value Reference Range Interpretation Comments HEMOGLOBIN A1c (test code = 80712) 10.7 % [id number] 00:00:00 Test Item Value Reference Range Interpretation Comments TSH, THIRD GENERATION (test code 0.777 UIU/ML = 2821) [id number] 00:00:00 Test Item Value Reference Range Interpretation Comments TSH, THIRD GENERATION (test code 0.777 UIU/ML = 2821) [id number] 00:00:00 Test Item Value Reference Range Interpretation Comments TSH, THIRD GENERATION (test code 0.777 UIU/ML = 2821) MICROALBUMIN/CREATININE, RANDOM AND [id number] 00:00:00 Test Item Value Reference Range Interpretation Comments CREATININE, URINE, CONC. (test 127.3 MG/DL code = 2072) ALBUMIN, URINE, RANDOM (test code 65.2 MG/DL = 60204) CALC ALBUMIN/CREAT, RND (test 512 MG/G code = 72480) MICROALBUMIN/CREATININE, RANDOM AND [id number] 00:00:00 Test Item Value Reference Range Interpretation Comments CREATININE, URINE, CONC. (test 127.3 MG/DL code = 2072) ALBUMIN, URINE, RANDOM (test code 65.2 MG/DL = 63868) CALC ALBUMIN/CREAT, RND (test 512 MG/G code = 17275) LIPID [id number] 00:00:00 Test Item Value Reference Range Interpretation Comments CHOLESTEROL (test code = 2210) 412 MG/DL TRIGLYCERIDES (test code = 2232) 2520 MG/DL HDL CHOLESTEROL (test code = 16 MG/DL 2220) CALC LDL CHOL (test code = 2237) NOTE MG/DL RISK RATIO LDL/HDL (test code = (NOTE) RATIO 2238) HEMOGLOBIN [id number] 00:00:00 Test Item Value Reference Range Interpretation Comments HEMOGLOBIN A1c (test code = 49880) 10.7 % HEMOGLOBIN [id number] 00:00:00 Test Item Value Reference Range Interpretation Comments HEMOGLOBIN A1c (test code = 32443) 10.7 % COMPREHENSIVE METABOLIC [id number] 00:00:00 Test Item Value Reference Range Interpretation Comments GLUCOSE (test code = 2217) 353 MG/DL BUN (test code = 2208) 27 MG/DL CREATININE (test code = 2214) 0.90 MG/DL eGFR AMER. (test code 92 ML/MIN/1.73 = 62029) eGFR NON- AMER. (test 79 ML/MIN/1.73 code = 20938) CALC BUN/CREAT (test code = 30 RATIO [...] code = 2219) 18 U/L COMPREHENSIVE METABOLIC [id number] 00:00:00 Test Item Value Reference Range Interpretation Comments GLUCOSE (test code = 2217) 353 MG/DL BUN (test code = 2208) 27 MG/DL CREATININE (test code = 2214) 0.90 MG/DL eGFR AMER. (test code 92 ML/MIN/1.73 = 60458) eGFR NON- AMER. (test 79 ML/MIN/1.73 code = 56652) CALC BUN/CREAT (test code = 30 RATIO [...] ALT (test code = 2219) 18 U/L [id number] 00:00:00 Test Item Value Reference Range Interpretation Comments TSH, THIRD GENERATION (test code 0.777 UIU/ML = 2821) LIPID [id number] 00:00:00 Test Item Value Reference Range Interpretation Comments CHOLESTEROL (test code = 2210) 412 MG/DL TRIGLYCERIDES (test code = 2232) 2520 MG/DL HDL CHOLESTEROL (test code = 16 MG/DL 2220) CALC LDL CHOL (test code = 2237) NOTE MG/DL RISK RATIO LDL/HDL (test code = (NOTE) RATIO 2238) [id number] 00:00:00 Test Item Value Reference Range Interpretation Comments TSH, THIRD GENERATION (test code 0.777 UIU/ML = 2821) LIPID [id number] 00:00:00 Test Item Value Reference Range Interpretation Comments CHOLESTEROL (test code = 2210) 412 MG/DL TRIGLYCERIDES (test code = 2232) 2520 MG/DL HDL CHOLESTEROL (test code = 16 MG/DL 2220) CALC LDL CHOL (test code = 2237) NOTE MG/DL RISK RATIO LDL/HDL (test code = (NOTE) RATIO 2238) HEMOGLOBIN [id number] 00:00:00 Test Item Value Reference Range Interpretation Comments HEMOGLOBIN A1c (test code = 40517) 10.7 % HEMOGLOBIN [id number] 00:00:00 Test Item Value Reference Range Interpretation Comments HEMOGLOBIN A1c (test code = 96022) 10.7 % HEMOGLOBIN [id number] 00:00:00 Test Item Value Reference Range Interpretation Comments HEMOGLOBIN A1c (test code = 00945) 10.7 % [id number] 00:00:00 Test Item Value Reference Range Interpretation Comments TSH, THIRD GENERATION (test code 0.777 UIU/ML = 2821) [id number] 00:00:00 Test Item Value Reference Range Interpretation Comments TSH, THIRD GENERATION (test code 0.777 UIU/ML = 2821) MICROALBUMIN/CREATININE, RANDOM AND [id number] 00:00:00 Test Item Value Reference Range Interpretation Comments CREATININE, URINE, CONC. (test 127.3 MG/DL code = 2072) ALBUMIN, URINE, RANDOM (test code 65.2 MG/DL = 49685) CALC ALBUMIN/CREAT, RND (test 512 MG/G code = 22828) [id number] 00:00:00 Test Item Value Reference Range Interpretation Comments TSH, THIRD GENERATION (test code 0.777 UIU/ML = 2821) MICROALBUMIN/CREATININE, RANDOM AND [id number] 00:00:00 Test Item Value Reference Range Interpretation Comments CREATININE, URINE, CONC. (test 127.3 MG/DL code = 2072) ALBUMIN, URINE, RANDOM (test code 65.2 MG/DL = 89589) CALC ALBUMIN/CREAT, RND (test 512 MG/G code = 46611) MICROALBUMIN/CREATININE, RANDOM AND [id number] 00:00:00 Test Item Value Reference Range Interpretation Comments CREATININE, URINE, CONC. (test 127.3 MG/DL code = 2072) ALBUMIN, URINE, RANDOM (test code 65.2 MG/DL = 66068) CALC ALBUMIN/CREAT, RND (test 512 MG/G code = 71638) COMPREHENSIVE METABOLIC [id number] 00:00:00 Test Item Value Reference Range Interpretation Comments GLUCOSE (test code = 2217) 353 MG/DL BUN (test code = 2208) 27 MG/DL CREATININE (test code = 2214) 0.90 MG/DL eGFR AMER. (test code 92 ML/MIN/1.73 = 18884) eGFR NON- AMER. (test 79 ML/MIN/1.73 code = 23426) CALC BUN/CREAT (test code = 30 RATIO [...] code = 2219) 18 U/L COMPREHENSIVE METABOLIC [id number] 00:00:00 Test Item Value Reference Range Interpretation Comments GLUCOSE (test code = 2217) 353 MG/DL BUN (test code = 2208) 27 MG/DL CREATININE (test code = 2214) 0.90 MG/DL eGFR AMER. (test code 92 ML/MIN/1.73 = 19168) eGFR NON- AMER. (test 79 ML/MIN/1.73 code = 35426) CALC BUN/CREAT (test code = 30 RATIO [...] (test code = 2219) 18 U/L LIPID [id number] 00:00:00 Test Item Value Reference Range Interpretation Comments CHOLESTEROL (test code = 2210) 412 MG/DL TRIGLYCERIDES (test code = 2232) 2520 MG/DL HDL CHOLESTEROL (test code = 16 MG/DL 2220) CALC LDL CHOL (test code = 2237) NOTE MG/DL RISK RATIO LDL/HDL (test code = (NOTE) RATIO 2238) LIPID [id number] 00:00:00 Test Item Value Reference Range Interpretation Comments CHOLESTEROL (test code = 2210) 412 MG/DL TRIGLYCERIDES (test code = 2232) 2520 MG/DL HDL CHOLESTEROL (test code = 16 MG/DL 2220) CALC LDL CHOL (test code = 2237) NOTE MG/DL RISK RATIO LDL/HDL (test code = (NOTE) RATIO 2238) HEMOGLOBIN [id number] 00:00:00 Test Item Value Reference Range Interpretation Comments HEMOGLOBIN A1c (test code = 71656) 10.7 % HEMOGLOBIN [id number] 00:00:00 Test Item Value Reference Range Interpretation Comments HEMOGLOBIN A1c (test code = 25864) 10.7 % HEMOGLOBIN [id number] 00:00:00 Test Item Value Reference Range Interpretation Comments HEMOGLOBIN A1c (test code = 43815) 10.7 % [id number] 00:00:00 Test Item Value Reference Range Interpretation Comments TSH, THIRD GENERATION (test code 0.777 UIU/ML = 2821) [id number] 00:00:00 Test Item Value Reference Range Interpretation Comments TSH, THIRD GENERATION (test code 0.777 UIU/ML = 2821) [id number] 00:00:00 Test Item Value Reference Range Interpretation Comments TSH, THIRD GENERATION (test code 0.777 UIU/ML = 2821) MICROALBUMIN/CREATININE, RANDOM AND [id number] 00:00:00 Test Item Value Reference Range Interpretation Comments CREATININE, URINE, CONC. (test 127.3 MG/DL code = 2072) ALBUMIN, URINE, RANDOM (test code 65.2 MG/DL = 85868) CALC ALBUMIN/CREAT, RND (test 512 MG/G code = 34073) MICROALBUMIN/CREATININE, RANDOM AND [id number] 00:00:00 Test Item Value Reference Range Interpretation Comments CREATININE, URINE, CONC. (test 127.3 MG/DL code = 2072) ALBUMIN, URINE, RANDOM (test code 65.2 MG/DL = 27810) CALC ALBUMIN/CREAT, RND (test 512 MG/G code = 21266) COMPREHENSIVE METABOLIC [id number] 00:00:00 Test Item Value Reference Range Interpretation Comments GLUCOSE (test code = 2217) 353 MG/DL BUN (test code = 2208) 27 MG/DL CREATININE (test code = 2214) 0.90 MG/DL eGFR AMER. (test code 92 ML/MIN/1.73 = 18364) eGFR NON- AMER. (test 79 ML/MIN/1.73 code = 96035) CALC BUN/CREAT (test code = 30 RATIO [...] ALKALINE PHOSPHATASE (test 59 U/L code = 220) AST (test code = 2218) 13 U/L ALT (test code = 2219) 18 U/L COMPREHENSIVE METABOLIC [id number] 00:00:00 Test Item Value Reference Range Interpretation Comments GLUCOSE (test code = 2217) 353 MG/DL BUN (test code = 2208) 27 MG/DL CREATININE (test code = 2214) 0.90 MG/DL eGFR AMER. (test code 92 ML/MIN/1.73 = 31901) eGFR NON- AMER. (test 79 ML/MIN/1.73 code = 41477) CALC BUN/CREAT (test code = 30 RATIO [...] (test code = 2219) 18 U/L LIPID [id number] 00:00:00 Test Item Value Reference Range Interpretation Comments CHOLESTEROL (test code = 2210) 412 MG/DL TRIGLYCERIDES (test code = 2232) 2520 MG/DL HDL CHOLESTEROL (test code = 16 MG/DL 2220) CALC LDL CHOL (test code = 2237) NOTE MG/DL RISK RATIO LDL/HDL (test code = (NOTE) RATIO 2238) LIPID [id number] 00:00:00 Test Item Value Reference Range Interpretation Comments CHOLESTEROL (test code = 2210) 412 MG/DL TRIGLYCERIDES (test code = 2232) 2520 MG/DL HDL CHOLESTEROL (test code = 16 MG/DL 2220) CALC LDL CHOL (test code = 2237) NOTE MG/DL RISK RATIO LDL/HDL (test code = (NOTE) RATIO 2238) HEMOGLOBIN [id number] 00:00:00 Test Item Value Reference Range Interpretation Comments HEMOGLOBIN A1c (test code = 16041) 10.7 % HEMOGLOBIN [id number] 00:00:00 Test Item Value Reference Range Interpretation Comments HEMOGLOBIN A1c (test code = 75116) 10.7 % HEMOGLOBIN [id number] 00:00:00 Test Item Value Reference Range Interpretation Comments HEMOGLOBIN A1c (test code = 80716) 10.7 % [id number] 00:00:00 Test Item Value Reference Range Interpretation Comments TSH, THIRD GENERATION (test code 0.777 UIU/ML = 2821) [id number] 00:00:00 Test Item Value Reference Range Interpretation Comments TSH, THIRD GENERATION (test code 0.777 UIU/ML = 2821) [id number] 00:00:00 Test Item Value Reference Range Interpretation Comments TSH, THIRD GENERATION (test code 0.777 UIU/ML = 2821) MICROALBUMIN/CREATININE, RANDOM AND [id number] 00:00:00 Test Item Value Reference Range Interpretation Comments CREATININE, URINE, CONC. (test 127.3 MG/DL code = 2072) ALBUMIN, URINE, RANDOM (test code 65.2 MG/DL = 08518) CALC ALBUMIN/CREAT, RND (test 512 MG/G code = 76230) MICROALBUMIN/CREATININE, RANDOM AND [id number] 00:00:00 Test Item Value Reference Range Interpretation Comments CREATININE, URINE, CONC. (test 127.3 MG/DL code = 2072) ALBUMIN, URINE, RANDOM (test code 65.2 MG/DL = 41711) CALC ALBUMIN/CREAT, RND (test 512 MG/G code = 03897) CULTURE, [id number] 00:00:00 Test Item Value Reference Range Interpretation Comments CULTURE, URINE (test SPECIMEN NUMBER: code = 63190) [id number] CULTURE, [id number] 00:00:00 Test Item Value Reference Range Interpretation Comments CULTURE, URINE (test SPECIMEN NUMBER: code = 77410) [id number] CULTURE, [id number] 00:00:00 Test Item Value Reference Range Interpretation Comments CULTURE, URINE (test SPECIMEN NUMBER: code = 32885) [id number] CULTURE, [id number] 00:00:00 Test Item Value Reference Range Interpretation Comments CULTURE, URINE (test SPECIMEN NUMBER: code = 86150) [id number] CULTURE, [id number] 00:00:00 Test Item Value Reference Range Interpretation Comments CULTURE, URINE (test SPECIMEN NUMBER: code = 78854) [id number] CULTURE, [id number] 00:00:00 Test Item Value Reference Range Interpretation Comments CULTURE, URINE (test SPECIMEN NUMBER: code = 70319) [id number] CULTURE, [id number] 00:00:00 Test Item Value Reference Range Interpretation Comments CULTURE, URINE (test SPECIMEN NUMBER: code = 20870) [id number] CULTURE, [id number] 00:00:00 Test Item Value Reference Range Interpretation Comments CULTURE, URINE (test SPECIMEN NUMBER: code = 37216) [id number] CULTURE, [id number] 00:00:00 Test Item Value Reference Range Interpretation Comments CULTURE, URINE (test SPECIMEN NUMBER: code = 13469) [id number] CULTURE, [id number] 00:00:00 Test Item Value Reference Range Interpretation Comments CULTURE, URINE (test SPECIMEN NUMBER: code = 52000) [id number] CULTURE, [id number] 00:00:00 Test Item Value Reference Range Interpretation Comments CULTURE, URINE (test SPECIMEN NUMBER: code = 14477) [id number] CULTURE, [id number] 00:00:00 Test Item Value Reference Range Interpretation Comments CULTURE, URINE (test SPECIMEN NUMBER: code = 99160) [id number] CULTURE, [id number] 00:00:00 Test Item Value Reference Range Interpretation Comments CULTURE, URINE (test SPECIMEN NUMBER: code = 45321) [id number] CULTURE, [id number] 00:00:00 Test Item Value Reference Range Interpretation Comments CULTURE, URINE (test SPECIMEN NUMBER: code = 79671) [id number] CULTURE, [id number] 00:00:00 Test Item Value Reference Range Interpretation Comments CULTURE, URINE (test SPECIMEN NUMBER: code = 16188) [id number] CULTURE, [id number] 00:00:00 Test Item Value Reference Range Interpretation Comments CULTURE, URINE (test SPECIMEN NUMBER: code = 90759) [id number] CULTURE, [id number] 00:00:00 Test Item Value Reference Range Interpretation Comments CULTURE, URINE (test SPECIMEN NUMBER: code = 56183) [id number] CULTURE, [id number] 00:00:00 Test Item Value Reference Range Interpretation Comments CULTURE, URINE (test SPECIMEN NUMBER: code = 66839) [id number] CULTURE, [id number] 00:00:00 Test Item Value Reference Range Interpretation Comments CULTURE, URINE (test SPECIMEN NUMBER: code = 52180) [id number] CULTURE, [id number] 00:00:00 Test Item Value Reference Range Interpretation Comments CULTURE, URINE (test SPECIMEN NUMBER: code = 25687) [id number] CULTURE, [id number] 00:00:00 Test Item Value Reference Range Interpretation Comments CULTURE, URINE (test SPECIMEN NUMBER: code = 23271) [id number] VAGINAL PATHOGENS DNA [id number] 00:00:00 Test Item Value Reference Range Interpretation Comments ANDIE SPECIES (test code = ) NEGATIVE G. VAGINALIS (test code = ) NEGATIVE T. VAGINALIS (test code = ) NEGATIVE VAGINAL PATHOGENS DNA [id number] 00:00:00 Test Item Value Reference Range Interpretation Comments ANDIE SPECIES (test code = ) NEGATIVE G. VAGINALIS (test code = 86047) NEGATIVE T. VAGINALIS (test code = ) NEGATIVE VAGINAL PATHOGENS DNA [id number] 00:00:00 Test Item Value Reference Range Interpretation Comments ANDIE SPECIES (test code = 22524) NEGATIVE G. VAGINALIS (test code = 45627) NEGATIVE T. VAGINALIS (test code = 16926) NEGATIVE VAGINAL PATHOGENS DNA [id number] 00:00:00 Test Item Value Reference Range Interpretation Comments ANDIE SPECIES (test code = 32500) NEGATIVE G. VAGINALIS (test code = 92313) NEGATIVE T. VAGINALIS (test code = 45010) NEGATIVE VAGINAL PATHOGENS DNA [id number] 00:00:00 Test Item Value Reference Range Interpretation Comments ANDIE SPECIES (test code = 73090) NEGATIVE G. VAGINALIS (test code = 77143) NEGATIVE T. VAGINALIS (test code = 52838) NEGATIVE VAGINAL PATHOGENS DNA [id number] 00:00:00 Test Item Value Reference Range Interpretation Comments ANDIE SPECIES (test code = 19673) NEGATIVE G. VAGINALIS (test code = 98468) NEGATIVE T. VAGINALIS (test code = 95348) NEGATIVE VAGINAL PATHOGENS DNA [id number] 00:00:00 Test Item Value Reference Range Interpretation Comments ANDIE SPECIES (test code = 87074) NEGATIVE G. VAGINALIS (test code = 08642) NEGATIVE T. VAGINALIS (test code = 24518) NEGATIVE VAGINAL PATHOGENS DNA [id number] 00:00:00 Test Item Value Reference Range Interpretation Comments ANDIE SPECIES (test code = 62802) NEGATIVE G. VAGINALIS (test code = 80956) NEGATIVE T. VAGINALIS (test code = 15571) NEGATIVE VAGINAL PATHOGENS DNA [id number] 00:00:00 Test Item Value Reference Range Interpretation Comments ANDIE SPECIES (test code = 88369) NEGATIVE G. VAGINALIS (test code = 77165) NEGATIVE T. VAGINALIS (test code = 20608) NEGATIVE VAGINAL PATHOGENS DNA [id number] 00:00:00 Test Item Value Reference Range Interpretation Comments ANDIE SPECIES (test code = 63299) NEGATIVE G. VAGINALIS (test code = 76514) NEGATIVE T. VAGINALIS (test code = 72672) NEGATIVE VAGINAL PATHOGENS DNA [id number] 00:00:00 Test Item Value Reference Range Interpretation Comments ANDIE SPECIES (test code = 83345) NEGATIVE G. VAGINALIS (test code = 78810) NEGATIVE T. VAGINALIS (test code = 05557) NEGATIVE VAGINAL PATHOGENS DNA [id number] 00:00:00 Test Item Value Reference Range Interpretation Comments ANDIE SPECIES (test code = 27340) NEGATIVE G. VAGINALIS (test code = 86546) NEGATIVE T. VAGINALIS (test code = 50436) NEGATIVE VAGINAL PATHOGENS DNA [id number] 00:00:00 Test Item Value Reference Range Interpretation Comments ANDIE SPECIES (test code = 42942) NEGATIVE G. VAGINALIS (test code = 68990) NEGATIVE T. VAGINALIS (test code = 48138) NEGATIVE VAGINAL PATHOGENS DNA [id number] 00:00:00 Test Item Value Reference Range Interpretation Comments ANDIE SPECIES (test code = 73090) NEGATIVE G. VAGINALIS (test code = 75023) NEGATIVE T. VAGINALIS (test code = 82803) NEGATIVE VAGINAL PATHOGENS DNA [id number] 00:00:00 Test Item Value Reference Range Interpretation Comments ANDIE SPECIES (test code = 35480) NEGATIVE G. VAGINALIS (test code = 37163) NEGATIVE T. VAGINALIS (test code = 79753) NEGATIVE VAGINAL PATHOGENS DNA [id number] 00:00:00 Test Item Value Reference Range Interpretation Comments ANIDE SPECIES (test code = 71608) NEGATIVE G. VAGINALIS (test code = 88541) NEGATIVE T. VAGINALIS (test code = 89953) NEGATIVE VAGINAL PATHOGENS DNA [id number] 00:00:00 Test Item Value Reference Range Interpretation Comments ANDIE SPECIES (test code = 74224) NEGATIVE G. VAGINALIS (test code = 22808) NEGATIVE T. VAGINALIS (test code = 09488) NEGATIVE VAGINAL PATHOGENS DNA [id number] 00:00:00 Test Item Value Reference Range Interpretation Comments ANDIE SPECIES (test code = 54775) NEGATIVE G. VAGINALIS (test code = 97873) NEGATIVE T. VAGINALIS (test code = 67771) NEGATIVE VAGINAL PATHOGENS DNA [id number] 00:00:00 Test Item Value Reference Range Interpretation Comments ANDIE SPECIES (test code = 28449) NEGATIVE G. VAGINALIS (test code = 59914) NEGATIVE T. VAGINALIS (test code = 58705) NEGATIVE VAGINAL PATHOGENS DNA [id number] 00:00:00 Test Item Value Reference Range Interpretation Comments ANDIE SPECIES (test code = 21168) NEGATIVE G. VAGINALIS (test code = 20977) NEGATIVE T. VAGINALIS (test code = 66820) NEGATIVE VAGINAL PATHOGENS DNA [id number] 00:00:00 Test Item Value Reference Range Interpretation [...] eGFR AMER. (test code 98 ML/MIN/1.73 = 60466) eGFR NON- AMER. (test 84 ML/MIN/1.73 code = 06649) CALC BUN/CREAT (test code = 21 RATIO [...] eGFR AMER. (test code 98 ML/MIN/1.73 = 17529) eGFR NON- AMER. (test 84 ML/MIN/1.73 code = 93166) CALC BUN/CREAT (test code = 21 RATIO [...] Interpretation Comments HEMOGLOBIN A1c (test code = 51399) 10.1 % HEMOGLOBIN A1c [ADDED]2018-05-24 00:00:00 Test Item Value Reference Range Interpretation Comments HEMOGLOBIN A1c (test code = 87344) 10.1 % HEMOGLOBIN A1c [ADDED]2018-05-24 00:00:00 Test Item Value Reference Range Interpretation Comments HEMOGLOBIN A1c (test code = 62199) 10.1 % COMPREHENSIVE METABOLIC PANEL [ADDED]2018-05-24 00:00:00 Test Item Value Reference Range Interpretation Comments GLUCOSE (test code = 2217) 198 MG/DL BUN (test code = 2208) 18 MG/DL CREATININE (test code = 2214) 0.86 MG/DL eGFR AMER. (test code 98 ML/MIN/1.73 = 43854) eGFR NON- AMER. (test 84 ML/MIN/1.73 code = 68120) CALC BUN/CREAT (test code = 21 RATIO [...] eGFR AMER. (test code 98 ML/MIN/1.73 = 25963) eGFR NON- AMER. (test 84 ML/MIN/1.73 code = 16608) CALC BUN/CREAT (test code = 21 RATIO [...] Interpretation Comments HEMOGLOBIN A1c (test code = 88553) 10.1 % HEMOGLOBIN A1c [ADDED]2018-05-24 00:00:00 Test Item Value Reference Range Interpretation Comments HEMOGLOBIN A1c (test code = 41637) 10.1 % HEMOGLOBIN A1c [ADDED]2018-05-24 00:00:00 Test Item Value Reference Range Interpretation Comments HEMOGLOBIN A1c (test code = 89479) 10.1 % COMPREHENSIVE METABOLIC PANEL [ADDED]2018-05-24 00:00:00 Test Item Value Reference Range Interpretation Comments GLUCOSE (test code = 2217) 198 MG/DL BUN (test code = 2208) 18 MG/DL CREATININE (test code = 2214) 0.86 MG/DL eGFR AMER. (test code 98 ML/MIN/1.73 = 55678) eGFR NON- AMER. (test 84 ML/MIN/1.73 code = 71613) CALC BUN/CREAT (test code = 21 RATIO [...] eGFR AMER. (test code 98 ML/MIN/1.73 = 55371) eGFR NON- AMER. (test 84 ML/MIN/1.73 code = 17018) CALC BUN/CREAT (test code = 21 RATIO [...] Interpretation Comments HEMOGLOBIN A1c (test code = 68987) 10.1 % HEMOGLOBIN A1c [ADDED]2018-05-24 00:00:00 Test Item Value Reference Range Interpretation Comments HEMOGLOBIN A1c (test code = 41832) 10.1 % HEMOGLOBIN A1c [ADDED]2018-05-24 00:00:00 Test Item Value Reference Range Interpretation Comments HEMOGLOBIN A1c (test code = 98237) 10.1 % COMPREHENSIVE METABOLIC PANEL [ADDED]2018-05-24 00:00:00 Test Item Value Reference Range Interpretation Comments GLUCOSE (test code = 2217) 198 MG/DL BUN (test code = 2208) 18 MG/DL CREATININE (test code = 2214) 0.86 MG/DL eGFR AMER. (test code 98 ML/MIN/1.73 = 26598) eGFR NON- AMER. (test 84 ML/MIN/1.73 code = 02977) CALC BUN/CREAT (test code = 21 RATIO [...] eGFR AMER. (test code 98 ML/MIN/1.73 = 11613) eGFR NON- AMER. (test 84 ML/MIN/1.73 code = 13841) CALC BUN/CREAT (test code = 21 RATIO [...] Interpretation Comments HEMOGLOBIN A1c (test code = 56065) 10.1 % HEMOGLOBIN A1c [ADDED]2018-05-24 00:00:00 Test Item Value Reference Range Interpretation Comments HEMOGLOBIN A1c (test code = 50230) 10.1 % HEMOGLOBIN A1c [ADDED]2018-05-24 00:00:00 Test Item Value Reference Range Interpretation Comments HEMOGLOBIN A1c (test code = 31669) 10.1 % COMPREHENSIVE METABOLIC PANEL [ADDED]2018-05-24 00:00:00 Test Item Value Reference Range Interpretation Comments GLUCOSE (test code = 2217) 198 MG/DL BUN (test code = 2208) 18 MG/DL CREATININE (test code = 2214) 0.86 MG/DL eGFR AMER. (test code 98 ML/MIN/1.73 = 57379) eGFR NON- AMER. (test 84 ML/MIN/1.73 code = 57037) CALC BUN/CREAT (test code = 21 RATIO [...] eGFR AMER. (test code 98 ML/MIN/1.73 = 68131) eGFR NON- AMER. (test 84 ML/MIN/1.73 code = 67578) CALC BUN/CREAT (test code = 21 RATIO [...] Interpretation Comments HEMOGLOBIN A1c (test code = 60119) 10.1 % HEMOGLOBIN A1c [ADDED]2018-05-24 00:00:00 Test Item Value Reference Range Interpretation Comments HEMOGLOBIN A1c (test code = 27924) 10.1 % HEMOGLOBIN A1c [ADDED]2018-05-24 00:00:00 Test Item Value Reference Range Interpretation Comments HEMOGLOBIN A1c (test code = 59851) 10.1 % COMPREHENSIVE METABOLIC PANEL [ADDED]2018-05-24 00:00:00 Test Item Value Reference Range Interpretation Comments GLUCOSE (test code = 2217) 198 MG/DL BUN (test code = 2208) 18 MG/DL CREATININE (test code = 2214) 0.86 MG/DL eGFR AMER. (test code 98 ML/MIN/1.73 = 96589) eGFR NON- AMER. (test 84 ML/MIN/1.73 code = 92933) CALC BUN/CREAT (test code = 21 RATIO [...] eGFR AMER. (test code 98 ML/MIN/1.73 = 93159) eGFR NON- AMER. (test 84 ML/MIN/1.73 code = 87163) CALC BUN/CREAT (test code = 21 RATIO [...] Interpretation Comments HEMOGLOBIN A1c (test code = 24359) 10.1 % HEMOGLOBIN A1c [ADDED]2018-05-24 00:00:00 Test Item Value Reference Range Interpretation Comments HEMOGLOBIN A1c (test code = 44030) 10.1 % HEMOGLOBIN A1c [ADDED]2018-05-24 00:00:00 Test Item Value Reference Range Interpretation Comments HEMOGLOBIN A1c (test code = 89243) 10.1 % COMPREHENSIVE METABOLIC PANEL [ADDED]2018-05-24 00:00:00 Test Item Value Reference Range Interpretation Comments GLUCOSE (test code = 2217) 198 MG/DL BUN (test code = 2208) 18 MG/DL CREATININE (test code = 2214) 0.86 MG/DL eGFR AMER. (test code 98 ML/MIN/1.73 = 59393) eGFR NON- AMER. (test 84 ML/MIN/1.73 code = 78347) CALC BUN/CREAT (test code = 21 RATIO [...] eGFR AMER. (test code 98 ML/MIN/1.73 = 91118) eGFR NON- AMER. (test 84 ML/MIN/1.73 code = 04471) CALC BUN/CREAT (test code = 21 RATIO [...] Interpretation Comments HEMOGLOBIN A1c (test code = 66844) 10.1 % HEMOGLOBIN A1c [ADDED]2018-05-24 00:00:00 Test Item Value Reference Range Interpretation Comments HEMOGLOBIN A1c (test code = 40282) 10.1 % HEMOGLOBIN A1c [ADDED]2018-05-24 00:00:00 Test Item Value Reference Range Interpretation Comments HEMOGLOBIN A1c (test code = 20706) 10.1 % COMPREHENSIVE METABOLIC PANEL [ADDED]2018-05-24 00:00:00 Test Item Value Reference Range Interpretation Comments GLUCOSE (test code = 2217) 198 MG/DL BUN (test code = 2208) 18 MG/DL CREATININE (test code = 2214) 0.86 MG/DL eGFR AMER. (test code 98 ML/MIN/1.73 = 67677) eGFR NON- AMER. (test 84 ML/MIN/1.73 code = 20416) CALC BUN/CREAT (test code = 21 RATIO [...] Interpretation Comments HEMOGLOBIN A1c (test code = 95354) 10.1 % HEMOGLOBIN A1c [ADDED]2018-05-24 00:00:00 Test Item Value Reference Range Interpretation Comments HEMOGLOBIN A1c (test code = 60513) 10.1 % COMPREHENSIVE METABOLIC PANEL [ADDED]2018-05-24 00:00:00 Test Item Value Reference Range Interpretation Comments GLUCOSE (test code = 2217) 198 MG/DL BUN (test code = 2208) 18 MG/DL CREATININE (test code = 2214) 0.86 MG/DL eGFR AMER. (test code 98 ML/MIN/1.73 = 94319) eGFR NON- AMER. (test 84 ML/MIN/1.73 code = 98718) CALC BUN/CREAT (test code = 21 RATIO [...] eGFR AMER. (test code 98 ML/MIN/1.73 = 65858) eGFR NON- AMER. (test 84 ML/MIN/1.73 code = 34779) CALC BUN/CREAT (test code = 21 RATIO [...] Interpretation Comments HEMOGLOBIN A1c (test code = 52881) 10.1 % HEMOGLOBIN A1c [ADDED]2018-05-24 00:00:00 Test Item Value Reference Range Interpretation Comments HEMOGLOBIN A1c (test code = 18290) 10.1 % HEMOGLOBIN A1c [ADDED]2018-05-24 00:00:00 Test Item Value Reference Range Interpretation Comments HEMOGLOBIN A1c (test code = 43455) 10.1 % COMPREHENSIVE METABOLIC PANEL [ADDED]2018-05-24 00:00:00 Test Item Value Reference Range Interpretation Comments GLUCOSE (test code = 2217) 198 MG/DL BUN (test code = 2208) 18 MG/DL CREATININE (test code = 2214) 0.86 MG/DL eGFR AMER. (test code 98 ML/MIN/1.73 = 95622) eGFR NON- AMER. (test 84 ML/MIN/1.73 code = 31045) CALC BUN/CREAT (test code = 21 RATIO [...] eGFR AMER. (test code 98 ML/MIN/1.73 = 84123) eGFR NON- AMER. (test 84 ML/MIN/1.73 code = 58758) CALC BUN/CREAT (test code = 21 RATIO [...] Comments HEMOGLOBIN A1c (test code = 11165) 10.1 % HEMOGLOBIN A1c [ADDED]2018-05-24 00:00:00 Test Item Value Reference Range Interpretation Comments HEMOGLOBIN A1c (test code = 61269) 10.1 % HEMOGLOBIN A1c [ADDED]2018-05-24 00:00:00 Test Item Value Reference Range Interpretation Comments HEMOGLOBIN A1c (test code = 95159) 10.1 % COMPREHENSIVE METABOLIC PANEL [ADDED]2018-05-24 00:00:00 Test Item Value Reference Range Interpretation Comments GLUCOSE (test code = 2217) 198 MG/DL BUN (test code = 2208) 18 MG/DL CREATININE (test code = 2214) 0.86 MG/DL eGFR AMER. (test code 98 ML/MIN/1.73 = 81436) eGFR NON- AMER. (test 84 ML/MIN/1.73 code = 18872) CALC BUN/CREAT (test code = 21 RATIO [...] eGFR AMER. (test code 98 ML/MIN/1.73 = 70151) eGFR NON- AMER. (test 84 ML/MIN/1.73 code = 82224) CALC BUN/CREAT (test code = 21 RATIO [...] Interpretation Comments HEMOGLOBIN A1c (test code = 49175) 10.1 % HEMOGLOBIN A1c [ADDED]2018-05-24 00:00:00 Test Item Value Reference Range Interpretation Comments HEMOGLOBIN A1c (test code = 87859) 10.1 % HEMOGLOBIN A1c [ADDED]2018-05-24 00:00:00 Test Item Value Reference Range Interpretation Comments HEMOGLOBIN A1c (test code = 66794) 10.1 % HEMOGLOBIN [id number] 00:00:00 Test Item Value Reference Range Interpretation Comments HEMOGLOBIN A1c (test code = 68373) 8.5 % HEMOGLOBIN [id number] 00:00:00 Test Item Value Reference Range Interpretation Comments HEMOGLOBIN A1c (test code = 73270) 8.5 % HEMOGLOBIN [id number] 00:00:00 Test Item Value Reference Range Interpretation Comments HEMOGLOBIN A1c (test code = 18230) 8.5 % COMPREHENSIVE METABOLIC [id number] 00:00:00 Test Item Value Reference Range Interpretation Comments GLUCOSE (test code = 2217) 131 MG/DL BUN (test code = 2208) 16 MG/DL CREATININE (test code = 2214) 0.71 MG/DL eGFR AMER. (test code 124 ML/MIN/1.73 = 40614) eGFR NON- AMER. (test 107 ML/MIN/1.73 code = 90060) CALC BUN/CREAT (test code = 23 RATIO [...] code = 2219) 33 U/L COMPREHENSIVE METABOLIC [id number] 00:00:00 Test Item Value Reference Range Interpretation Comments GLUCOSE (test code = 2217) 131 MG/DL BUN (test code = 2208) 16 MG/DL CREATININE (test code = 2214) 0.71 MG/DL eGFR AMER. (test code 124 ML/MIN/1.73 = 11927) eGFR NON- AMER. (test 107 ML/MIN/1.73 code = 14314) CALC BUN/CREAT (test code = 23 RATIO [...] (test code = 2219) 33 U/L LIPID [id number] 00:00:00 Test Item Value Reference Range Interpretation Comments CHOLESTEROL (test code = 2210) 201 MG/DL TRIGLYCERIDES (test code = 2232) 1014 MG/DL HDL CHOLESTEROL (test code = 25 MG/DL 2220) CALC LDL CHOL (test code = 2237) NOTE MG/DL RISK RATIO LDL/HDL (test code = (NOTE) RATIO 2238) LIPID [id number] 00:00:00 Test Item Value Reference Range Interpretation Comments CHOLESTEROL (test code = 2210) 201 MG/DL TRIGLYCERIDES (test code = 2232) 1014 MG/DL HDL CHOLESTEROL (test code = 25 MG/DL 2220) CALC LDL CHOL (test code = 2237) NOTE MG/DL RISK RATIO LDL/HDL (test code = (NOTE) RATIO 2238) HEMOGLOBIN [id number] 00:00:00 Test Item Value Reference Range Interpretation Comments HEMOGLOBIN A1c (test code = 33618) 8.5 % HEMOGLOBIN [id number] 00:00:00 Test Item Value Reference Range Interpretation Comments HEMOGLOBIN A1c (test code = 07698) 8.5 % HEMOGLOBIN [id number] 00:00:00 Test Item Value Reference Range Interpretation Comments HEMOGLOBIN A1c (test code = 13783) 8.5 % COMPREHENSIVE METABOLIC [id number] 00:00:00 Test Item Value Reference Range Interpretation Comments GLUCOSE (test code = 2217) 131 MG/DL BUN (test code = 2208) 16 MG/DL CREATININE (test code = 2214) 0.71 MG/DL eGFR AMER. (test code 124 ML/MIN/1.73 = 58031) eGFR NON- AMER. (test 107 ML/MIN/1.73 code = 23332) CALC BUN/CREAT (test code = 23 RATIO [...] code = 2219) 33 U/L COMPREHENSIVE METABOLIC [id number] 00:00:00 Test Item Value Reference Range Interpretation Comments GLUCOSE (test code = 2217) 131 MG/DL BUN (test code = 2208) 16 MG/DL CREATININE (test code = 2214) 0.71 MG/DL eGFR AMER. (test code 124 ML/MIN/1.73 = 84274) eGFR NON- AMER. (test 107 ML/MIN/1.73 code = 80933) CALC BUN/CREAT (test code = 23 RATIO [...] (test code = 2219) 33 U/L LIPID [id number] 00:00:00 Test Item Value Reference Range Interpretation Comments CHOLESTEROL (test code = 2210) 201 MG/DL TRIGLYCERIDES (test code = 2232) 1014 MG/DL HDL CHOLESTEROL (test code = 25 MG/DL 2220) CALC LDL CHOL (test code = 2237) NOTE MG/DL RISK RATIO LDL/HDL (test code = (NOTE) RATIO 2238) LIPID [id number] 00:00:00 Test Item Value Reference Range Interpretation Comments CHOLESTEROL (test code = 2210) 201 MG/DL TRIGLYCERIDES (test code = 2232) 1014 MG/DL HDL CHOLESTEROL (test code = 25 MG/DL 2220) CALC LDL CHOL (test code = 2237) NOTE MG/DL RISK RATIO LDL/HDL (test code = (NOTE) RATIO 2238) HEMOGLOBIN [id number] 00:00:00 Test Item Value Reference Range Interpretation Comments HEMOGLOBIN A1c (test code = 17458) 8.5 % HEMOGLOBIN [id number] 00:00:00 Test Item Value Reference Range Interpretation Comments HEMOGLOBIN A1c (test code = 88709) 8.5 % HEMOGLOBIN [id number] 00:00:00 Test Item Value Reference Range Interpretation Comments HEMOGLOBIN A1c (test code = 54497) 8.5 % COMPREHENSIVE METABOLIC [id number] 00:00:00 Test Item Value Reference Range Interpretation Comments GLUCOSE (test code = 2217) 131 MG/DL BUN (test code = 2208) 16 MG/DL CREATININE (test code = 2214) 0.71 MG/DL eGFR AMER. (test code 124 ML/MIN/1.73 = 88421) eGFR NON- AMER. (test 107 ML/MIN/1.73 code = 16847) CALC BUN/CREAT (test code = 23 RATIO [...] code = 2219) 33 U/L COMPREHENSIVE METABOLIC [id number] 00:00:00 Test Item Value Reference Range Interpretation Comments GLUCOSE (test code = 2217) 131 MG/DL BUN (test code = 2208) 16 MG/DL CREATININE (test code = 2214) 0.71 MG/DL eGFR AMER. (test code 124 ML/MIN/1.73 = 66305) eGFR NON- AMER. (test 107 ML/MIN/1.73 code = 98826) CALC BUN/CREAT (test code = 23 RATIO [...] (test code = 2219) 33 U/L LIPID [id number] 00:00:00 Test Item Value Reference Range Interpretation Comments CHOLESTEROL (test code = 2210) 201 MG/DL TRIGLYCERIDES (test code = 2232) 1014 MG/DL HDL CHOLESTEROL (test code = 25 MG/DL 2220) CALC LDL CHOL (test code = 2237) NOTE MG/DL RISK RATIO LDL/HDL (test code = (NOTE) RATIO 2238) LIPID [id number] 00:00:00 Test Item Value Reference Range Interpretation Comments CHOLESTEROL (test code = 2210) 201 MG/DL TRIGLYCERIDES (test code = 2232) 1014 MG/DL HDL CHOLESTEROL (test code = 25 MG/DL 2220) CALC LDL CHOL (test code = 2237) NOTE MG/DL RISK RATIO LDL/HDL (test code = (NOTE) RATIO 2238) HEMOGLOBIN [id number] 00:00:00 Test Item Value Reference Range Interpretation Comments HEMOGLOBIN A1c (test code = 86745) 8.5 % HEMOGLOBIN [id number] 00:00:00 Test Item Value Reference Range Interpretation Comments HEMOGLOBIN A1c (test code = 67437) 8.5 % HEMOGLOBIN [id number] 00:00:00 Test Item Value Reference Range Interpretation Comments HEMOGLOBIN A1c (test code = 72491) 8.5 % COMPREHENSIVE METABOLIC [id number] 00:00:00 Test Item Value Reference Range Interpretation Comments GLUCOSE (test code = 2217) 131 MG/DL BUN (test code = 2208) 16 MG/DL CREATININE (test code = 2214) 0.71 MG/DL eGFR AMER. (test code 124 ML/MIN/1.73 = 86920) eGFR NON- AMER. (test 107 ML/MIN/1.73 code = 78316) CALC BUN/CREAT (test code = 23 RATIO [...] code = 2219) 33 U/L COMPREHENSIVE METABOLIC [id number] 00:00:00 Test Item Value Reference Range Interpretation Comments GLUCOSE (test code = 2217) 131 MG/DL BUN (test code = 2208) 16 MG/DL CREATININE (test code = 2214) 0.71 MG/DL eGFR AMER. (test code 124 ML/MIN/1.73 = 80542) eGFR NON- AMER. (test 107 ML/MIN/1.73 code = 99638) CALC BUN/CREAT (test code = 23 RATIO [...] (test code = 2219) 33 U/L LIPID [id number] 00:00:00 Test Item Value Reference Range Interpretation Comments CHOLESTEROL (test code = 2210) 201 MG/DL TRIGLYCERIDES (test code = 2232) 1014 MG/DL HDL CHOLESTEROL (test code = 25 MG/DL 2220) CALC LDL CHOL (test code = 2237) NOTE MG/DL RISK RATIO LDL/HDL (test code = (NOTE) RATIO 2238) LIPID [id number] 00:00:00 Test Item Value Reference Range Interpretation Comments CHOLESTEROL (test code = 2210) 201 MG/DL TRIGLYCERIDES (test code = 2232) 1014 MG/DL HDL CHOLESTEROL (test code = 25 MG/DL 2220) CALC LDL CHOL (test code = 2237) NOTE MG/DL RISK RATIO LDL/HDL (test code = (NOTE) RATIO 2238) HEMOGLOBIN [id number] 00:00:00 Test Item Value Reference Range Interpretation Comments HEMOGLOBIN A1c (test code = 22898) 8.5 % HEMOGLOBIN [id number] 00:00:00 Test Item Value Reference Range Interpretation Comments HEMOGLOBIN A1c (test code = 51147) 8.5 % HEMOGLOBIN [id number] 00:00:00 Test Item Value Reference Range Interpretation Comments HEMOGLOBIN A1c (test code = 84319) 8.5 % COMPREHENSIVE METABOLIC [id number] 00:00:00 Test Item Value Reference Range Interpretation Comments GLUCOSE (test code = 2217) 131 MG/DL BUN (test code = 2208) 16 MG/DL CREATININE (test code = 2214) 0.71 MG/DL eGFR AMER. (test code 124 ML/MIN/1.73 = 91605) eGFR NON- AMER. (test 107 ML/MIN/1.73 code = 66577) CALC BUN/CREAT (test code = 23 RATIO [...] code = 2219) 33 U/L COMPREHENSIVE METABOLIC [id number] 00:00:00 Test Item Value Reference Range Interpretation Comments GLUCOSE (test code = 2217) 131 MG/DL BUN (test code = 2208) 16 MG/DL CREATININE (test code = 2214) 0.71 MG/DL eGFR AMER. (test code 124 ML/MIN/1.73 = 07053) eGFR NON- AMER. (test 107 ML/MIN/1.73 code = 29444) CALC BUN/CREAT (test code = 23 RATIO [...] (test code = 2219) 33 U/L LIPID [id number] 00:00:00 Test Item Value Reference Range Interpretation Comments CHOLESTEROL (test code = 2210) 201 MG/DL TRIGLYCERIDES (test code = 2232) 1014 MG/DL HDL CHOLESTEROL (test code = 25 MG/DL 2220) CALC LDL CHOL (test code = 2237) NOTE MG/DL RISK RATIO LDL/HDL (test code = (NOTE) RATIO 2238) LIPID [id number] 00:00:00 Test Item Value Reference Range Interpretation Comments CHOLESTEROL (test code = 2210) 201 MG/DL TRIGLYCERIDES (test code = 2232) 1014 MG/DL HDL CHOLESTEROL (test code = 25 MG/DL 2220) CALC LDL CHOL (test code = 2237) NOTE MG/DL RISK RATIO LDL/HDL (test code = (NOTE) RATIO 2238) HEMOGLOBIN [id number] 00:00:00 Test Item Value Reference Range Interpretation Comments HEMOGLOBIN A1c (test code = 00814) 8.5 % HEMOGLOBIN [id number] 00:00:00 Test Item Value Reference Range Interpretation Comments HEMOGLOBIN A1c (test code = 66367) 8.5 % HEMOGLOBIN [id number] 00:00:00 Test Item Value Reference Range Interpretation Comments HEMOGLOBIN A1c (test code = 89371) 8.5 % COMPREHENSIVE METABOLIC [id number] 00:00:00 Test Item Value Reference Range Interpretation Comments GLUCOSE (test code = 2217) 131 MG/DL BUN (test code = 2208) 16 MG/DL CREATININE (test code = 2214) 0.71 MG/DL eGFR AMER. (test code 124 ML/MIN/1.73 = 62323) eGFR NON- AMER. (test 107 ML/MIN/1.73 code = 19294) CALC BUN/CREAT (test code = 23 RATIO [...] code = 2219) 33 U/L COMPREHENSIVE METABOLIC [id number] 00:00:00 Test Item Value Reference Range Interpretation Comments GLUCOSE (test code = 2217) 131 MG/DL BUN (test code = 2208) 16 MG/DL CREATININE (test code = 2214) 0.71 MG/DL eGFR AMER. (test code 124 ML/MIN/1.73 = 05833) eGFR NON- AMER. (test 107 ML/MIN/1.73 code = 74957) CALC BUN/CREAT (test code = 23 RATIO [...] (test code = 2219) 33 U/L LIPID [id number] 00:00:00 Test Item Value Reference Range Interpretation Comments CHOLESTEROL (test code = 2210) 201 MG/DL TRIGLYCERIDES (test code = 2232) 1014 MG/DL HDL CHOLESTEROL (test code = 25 MG/DL 2220) CALC LDL CHOL (test code = 2237) NOTE MG/DL RISK RATIO LDL/HDL (test code = (NOTE) RATIO 2238) LIPID [id number] 00:00:00 Test Item Value Reference Range Interpretation Comments CHOLESTEROL (test code = 2210) 201 MG/DL TRIGLYCERIDES (test code = 2232) 1014 MG/DL HDL CHOLESTEROL (test code = 25 MG/DL 2220) CALC LDL CHOL (test code = 2237) NOTE MG/DL RISK RATIO LDL/HDL (test code = (NOTE) RATIO 2238) HEMOGLOBIN [id number] 00:00:00 Test Item Value Reference Range Interpretation Comments HEMOGLOBIN A1c (test code = 88477) 8.5 % HEMOGLOBIN [id number] 00:00:00 Test Item Value Reference Range Interpretation Comments HEMOGLOBIN A1c (test code = 49020) 8.5 % HEMOGLOBIN [id number] 00:00:00 Test Item Value Reference Range Interpretation Comments HEMOGLOBIN A1c (test code = 44029) 8.5 % COMPREHENSIVE METABOLIC [id number] 00:00:00 Test Item Value Reference Range Interpretation Comments GLUCOSE (test code = 2217) 131 MG/DL BUN (test code = 2208) 16 MG/DL CREATININE (test code = 2214) 0.71 MG/DL eGFR AMER. (test code 124 ML/MIN/1.73 = 15615) eGFR NON- AMER. (test 107 ML/MIN/1.73 code = 07390) CALC BUN/CREAT (test code = 23 RATIO [...] code = 2219) 33 U/L COMPREHENSIVE METABOLIC [id number] 00:00:00 Test Item Value Reference Range Interpretation Comments GLUCOSE (test code = 2217) 131 MG/DL BUN (test code = 2208) 16 MG/DL CREATININE (test code = 2214) 0.71 MG/DL eGFR AMER. (test code 124 ML/MIN/1.73 = 38080) eGFR NON- AMER. (test 107 ML/MIN/1.73 code = 20030) CALC BUN/CREAT (test code = 23 RATIO [...] (test code = 2219) 33 U/L LIPID [id number] 00:00:00 Test Item Value Reference Range Interpretation Comments CHOLESTEROL (test code = 2210) 201 MG/DL TRIGLYCERIDES (test code = 2232) 1014 MG/DL HDL CHOLESTEROL (test code = 25 MG/DL 2220) CALC LDL CHOL (test code = 2237) NOTE MG/DL RISK RATIO LDL/HDL (test code = (NOTE) RATIO 2238) LIPID [id number] 00:00:00 Test Item Value Reference Range Interpretation Comments CHOLESTEROL (test code = 2210) 201 MG/DL TRIGLYCERIDES (test code = 2232) 1014 MG/DL HDL CHOLESTEROL (test code = 25 MG/DL 2220) CALC LDL CHOL (test code = 2237) NOTE MG/DL RISK RATIO LDL/HDL (test code = (NOTE) RATIO 2238) HEMOGLOBIN [id number] 00:00:00 Test Item Value Reference Range Interpretation Comments HEMOGLOBIN A1c (test code = 99852) 8.5 % HEMOGLOBIN [id number] 00:00:00 Test Item Value Reference Range Interpretation Comments HEMOGLOBIN A1c (test code = 21669) 8.5 % COMPREHENSIVE METABOLIC [id number] 00:00:00 Test Item Value Reference Range Interpretation Comments GLUCOSE (test code = 2217) 131 MG/DL BUN (test code = 2208) 16 MG/DL CREATININE (test code = 2214) 0.71 MG/DL eGFR AMER. (test code 124 ML/MIN/1.73 = 94469) eGFR NON- AMER. (test 107 ML/MIN/1.73 code = 28467) CALC BUN/CREAT (test code = 23 RATIO [...] (test code = 2219) 33 U/L LIPID [id number] 00:00:00 Test Item Value Reference Range Interpretation Comments CHOLESTEROL (test code = 2210) 201 MG/DL TRIGLYCERIDES (test code = 2232) 1014 MG/DL HDL CHOLESTEROL (test code = 25 MG/DL 2219) CALC LDL CHOL (test code = 2237) NOTE MG/DL RISK RATIO LDL/HDL (test code = (NOTE) RATIO 2238) HEMOGLOBIN [id number] 00:00:00 Test Item Value Reference Range Interpretation Comments HEMOGLOBIN A1c (test code = 81547) 8.5 % HEMOGLOBIN [id number] 00:00:00 Test Item Value Reference Range Interpretation Comments HEMOGLOBIN A1c (test code = 87483) 8.5 % HEMOGLOBIN [id number] 00:00:00 Test Item Value Reference Range Interpretation Comments HEMOGLOBIN A1c (test code = 27600) 8.5 % COMPREHENSIVE METABOLIC [id number] 00:00:00 Test Item Value Reference Range Interpretation Comments GLUCOSE (test code = 2217) 131 MG/DL BUN (test code = 2208) 16 MG/DL CREATININE (test code = 2214) 0.71 MG/DL eGFR AMER. (test code 124 ML/MIN/1.73 = 61466) eGFR NON- AMER. (test 107 ML/MIN/1.73 code = 26249) CALC BUN/CREAT (test code = 23 RATIO [...] code = 2219) 33 U/L COMPREHENSIVE METABOLIC [id number] 00:00:00 Test Item Value Reference Range Interpretation Comments GLUCOSE (test code = 2217) 131 MG/DL BUN (test code = 2208) 16 MG/DL CREATININE (test code = 2214) 0.71 MG/DL eGFR AMER. (test code 124 ML/MIN/1.73 = 33776) eGFR NON- AMER. (test 107 ML/MIN/1.73 code = 87406) CALC BUN/CREAT (test code = 23 RATIO [...] (test code = 2219) 33 U/L LIPID [id number] 00:00:00 Test Item Value Reference Range Interpretation Comments CHOLESTEROL (test code = 2210) 201 MG/DL TRIGLYCERIDES (test code = 2232) 1014 MG/DL HDL CHOLESTEROL (test code = 25 MG/DL 2220) CALC LDL CHOL (test code = 2237) NOTE MG/DL RISK RATIO LDL/HDL (test code = (NOTE) RATIO 2238) LIPID [id number] 00:00:00 Test Item Value Reference Range Interpretation Comments CHOLESTEROL (test code = 2210) 201 MG/DL TRIGLYCERIDES (test code = 2232) 1014 MG/DL HDL CHOLESTEROL (test code = 25 MG/DL 2220) CALC LDL CHOL (test code = 2237) NOTE MG/DL RISK RATIO LDL/HDL (test code = (NOTE) RATIO 2238) HEMOGLOBIN [id number] 00:00:00 Test Item Value Reference Range Interpretation Comments HEMOGLOBIN A1c (test code = 47631) 8.5 % HEMOGLOBIN [id number] 00:00:00 Test Item Value Reference Range Interpretation Comments HEMOGLOBIN A1c (test code = 49613) 8.5 % HEMOGLOBIN [id number] 00:00:00 Test Item Value Reference Range Interpretation Comments HEMOGLOBIN A1c (test code = 86107) 8.5 % COMPREHENSIVE METABOLIC [id number] 00:00:00 Test Item Value Reference Range Interpretation Comments GLUCOSE (test code = 2217) 131 MG/DL BUN (test code = 2208) 16 MG/DL CREATININE (test code = 2214) 0.71 MG/DL eGFR AMER. (test code 124 ML/MIN/1.73 = 47415) eGFR NON- AMER. (test 107 ML/MIN/1.73 code = 75206) CALC BUN/CREAT (test code = 23 RATIO [...] code = 2219) 33 U/L COMPREHENSIVE METABOLIC [id number] 00:00:00 Test Item Value Reference Range Interpretation Comments GLUCOSE (test code = 2217) 131 MG/DL BUN (test code = 2208) 16 MG/DL CREATININE (test code = 2214) 0.71 MG/DL eGFR AMER. (test code 124 ML/MIN/1.73 = 47029) eGFR NON- AMER. (test 107 ML/MIN/1.73 code = 70450) CALC BUN/CREAT (test code = 23 RATIO [...] (test code = 2219) 33 U/L LIPID [id number] 00:00:00 Test Item Value Reference Range Interpretation Comments CHOLESTEROL (test code = 2210) 201 MG/DL TRIGLYCERIDES (test code = 2232) 1014 MG/DL HDL CHOLESTEROL (test code = 25 MG/DL 2220) CALC LDL CHOL (test code = 2237) NOTE MG/DL RISK RATIO LDL/HDL (test code = (NOTE) RATIO 2238) LIPID [id number] 00:00:00 Test Item Value Reference Range Interpretation Comments CHOLESTEROL (test code = 2210) 201 MG/DL TRIGLYCERIDES (test code = 2232) 1014 MG/DL HDL CHOLESTEROL (test code = 25 MG/DL 2220) CALC LDL CHOL (test code = 2237) NOTE MG/DL RISK RATIO LDL/HDL (test code = (NOTE) RATIO 2238) HEMOGLOBIN [id number] 00:00:00 Test Item Value Reference Range Interpretation Comments HEMOGLOBIN A1c (test code = 07292) 8.5 % HEMOGLOBIN [id number] 00:00:00 Test Item Value Reference Range Interpretation Comments HEMOGLOBIN A1c (test code = 51335) 8.5 % HEMOGLOBIN [id number] 00:00:00 Test Item Value Reference Range Interpretation Comments HEMOGLOBIN A1c (test code = 06746) 8.5 % COMPREHENSIVE METABOLIC [id number] 00:00:00 Test Item Value Reference Range Interpretation Comments GLUCOSE (test code = 2217) 131 MG/DL BUN (test code = 2208) 16 MG/DL CREATININE (test code = 2214) 0.71 MG/DL eGFR AMER. (test code 124 ML/MIN/1.73 = 57100) eGFR NON- AMER. (test 107 ML/MIN/1.73 code = 29004) CALC BUN/CREAT (test code = 23 RATIO [...] code = 2219) 33 U/L COMPREHENSIVE METABOLIC [id number] 00:00:00 Test Item Value Reference Range Interpretation Comments GLUCOSE (test code = 2217) 131 MG/DL BUN (test code = 2208) 16 MG/DL CREATININE (test code = 2214) 0.71 MG/DL eGFR AMER. (test code 124 ML/MIN/1.73 = 84718) eGFR NON- AMER. (test 107 ML/MIN/1.73 code = 20596) CALC BUN/CREAT (test code = 23 RATIO [...] (test code = 2219) 33 U/L LIPID [id number] 00:00:00 Test Item Value Reference Range Interpretation Comments CHOLESTEROL (test code = 2210) 201 MG/DL TRIGLYCERIDES (test code = 2232) 1014 MG/DL HDL CHOLESTEROL (test code = 25 MG/DL 2220) CALC LDL CHOL (test code = 2237) NOTE MG/DL RISK RATIO LDL/HDL (test code = (NOTE) RATIO 2238) LIPID [id number] 00:00:00 Test Item Value Reference Range Interpretation Comments CHOLESTEROL (test code = 2210) 201 MG/DL TRIGLYCERIDES (test code = 2232) 1014 MG/DL HDL CHOLESTEROL (test code = 25 MG/DL 2220) CALC LDL CHOL (test code = 2237) NOTE MG/DL RISK RATIO LDL/HDL (test code = (NOTE) RATIO 2238) CULTURE, HERPES [id number] 00:00:00 Test Item Value Reference Range Interpretation Comments SPECIMEN SOURCE (test code = 16015) LABIA HERPES CULTURE (test code = 3533) NEGATIVE CULTURE, HERPES [id number] 00:00:00 Test Item Value Reference Range Interpretation Comments SPECIMEN SOURCE (test code = 46691) LABIA HERPES CULTURE (test code = 3533) NEGATIVE CULTURE, HERPES [id number] 00:00:00 Test Item Value Reference Range Interpretation Comments SPECIMEN SOURCE (test code = 75594) LABIA HERPES CULTURE (test code = 3533) NEGATIVE CULTURE, HERPES [id number] 00:00:00 Test Item Value Reference Range Interpretation Comments SPECIMEN SOURCE (test code = 16875) LABIA HERPES CULTURE (test code = 3533) NEGATIVE CULTURE, HERPES [id number] 00:00:00 Test Item Value Reference Range Interpretation Comments SPECIMEN SOURCE (test code = 67369) LABIA HERPES CULTURE (test code = 3533) NEGATIVE CULTURE, HERPES [id number] 00:00:00 Test Item Value Reference Range Interpretation Comments SPECIMEN SOURCE (test code = 89665) LABIA HERPES CULTURE (test code = 3533) NEGATIVE CULTURE, HERPES [id number] 00:00:00 Test Item Value Reference Range Interpretation Comments SPECIMEN SOURCE (test code = 17824) LABIA HERPES CULTURE (test code = 3533) NEGATIVE CULTURE, HERPES [id number] 00:00:00 Test Item Value Reference Range Interpretation Comments SPECIMEN SOURCE (test code = 09279) LABIA HERPES CULTURE (test code = 3533) NEGATIVE CULTURE, HERPES [id number] 00:00:00 Test Item Value Reference Range Interpretation Comments SPECIMEN SOURCE (test code = 84675) LABIA HERPES CULTURE (test code = 3533) NEGATIVE CULTURE, HERPES [id number] 00:00:00 Test Item Value Reference Range Interpretation Comments SPECIMEN SOURCE (test code = 97742) LABIA HERPES CULTURE (test code = 3533) NEGATIVE CULTURE, HERPES [id number] 00:00:00 Test Item Value Reference Range Interpretation Comments SPECIMEN SOURCE (test code = 00532) LABIA HERPES CULTURE (test code = 3533) NEGATIVE CULTURE, HERPES [id number] 00:00:00 Test Item Value Reference Range Interpretation Comments SPECIMEN SOURCE (test code = 04527) LABIA HERPES CULTURE (test code = 3533) NEGATIVE CULTURE, HERPES [id number] 00:00:00 Test Item Value Reference Range Interpretation Comments SPECIMEN SOURCE (test code = 55845) LABIA HERPES CULTURE (test code = 3533) NEGATIVE CULTURE, HERPES [id number] 00:00:00 Test Item Value Reference Range Interpretation Comments SPECIMEN SOURCE (test code = 91010) LABIA HERPES CULTURE (test code = 3533) NEGATIVE CULTURE, HERPES [id number] 00:00:00 Test Item Value Reference Range Interpretation Comments SPECIMEN SOURCE (test code = 72597) LABIA HERPES CULTURE (test code = 3533) NEGATIVE CULTURE, HERPES [id number] 00:00:00 Test Item Value Reference Range Interpretation Comments SPECIMEN SOURCE (test code = 11865) LABIA HERPES CULTURE (test code = 3533) NEGATIVE CULTURE, HERPES [id number] 00:00:00 Test Item Value Reference Range Interpretation Comments SPECIMEN SOURCE (test code = 44615) LABIA HERPES CULTURE (test code = 3533) NEGATIVE CULTURE, HERPES [id number] 00:00:00 Test Item Value Reference Range Interpretation Comments SPECIMEN SOURCE (test code = 57733) LABIA HERPES CULTURE (test code = 3533) NEGATIVE CULTURE, HERPES [id number] 00:00:00 Test Item Value Reference Range Interpretation Comments SPECIMEN SOURCE (test code = 61378) LABIA HERPES CULTURE (test code = 3533) NEGATIVE CULTURE, HERPES [id number] 00:00:00 Test Item Value Reference Range Interpretation Comments SPECIMEN SOURCE (test code = 26996) LABIA HERPES CULTURE (test code = 3533) NEGATIVE CULTURE, HERPES [id number] 00:00:00 Test Item Value Reference Range Interpretation Comments SPECIMEN SOURCE (test code = 89450) LABIA HERPES CULTURE (test code = 3533) NEGATIVE VAGINAL PATHOGENS DNA [id number] 00:00:00 Test Item Value Reference Range Interpretation Comments ANDIE SPECIES (test code = 83839) NEGATIVE G. VAGINALIS (test code = 70355) NEGATIVE T. VAGINALIS (test code = 56584) NEGATIVE VAGINAL PATHOGENS DNA [id number] 00:00:00 Test Item Value Reference Range Interpretation Comments ANDIE SPECIES (test code = 74878) NEGATIVE G. VAGINALIS (test code = 13044) NEGATIVE T. VAGINALIS (test code = 95156) NEGATIVE VAGINAL PATHOGENS DNA [id number] 00:00:00 Test Item Value Reference Range Interpretation Comments ANDIE SPECIES (test code = 70818) NEGATIVE G. VAGINALIS (test code = 53184) NEGATIVE T. VAGINALIS (test code = 93143) NEGATIVE VAGINAL PATHOGENS DNA [id number] 00:00:00 Test Item Value Reference Range Interpretation Comments ANDIE SPECIES (test code = 69042) NEGATIVE G. VAGINALIS (test code = 10191) NEGATIVE T. VAGINALIS (test code = 21575) NEGATIVE VAGINAL PATHOGENS DNA [id number] 00:00:00 Test Item Value Reference Range Interpretation Comments ANDIE SPECIES (test code = 38040) NEGATIVE G. VAGINALIS (test code = 13120) NEGATIVE T. VAGINALIS (test code = 23451) NEGATIVE VAGINAL PATHOGENS DNA [id number] 00:00:00 Test Item Value Reference Range Interpretation Comments ANDIE SPECIES (test code = 79785) NEGATIVE G. VAGINALIS (test code = 45226) NEGATIVE T. VAGINALIS (test code = 47017) NEGATIVE VAGINAL PATHOGENS DNA [id number] 00:00:00 Test Item Value Reference Range Interpretation Comments ANDIE SPECIES (test code = 00394) NEGATIVE G. VAGINALIS (test code = 95654) NEGATIVE T. VAGINALIS (test code = 07816) NEGATIVE VAGINAL PATHOGENS DNA [id number] 00:00:00 Test Item Value Reference Range Interpretation Comments ANDIE SPECIES (test code = 39181) NEGATIVE G. VAGINALIS (test code = 69430) NEGATIVE T. VAGINALIS (test code = 88526) NEGATIVE VAGINAL PATHOGENS DNA [id number] 00:00:00 Test Item Value Reference Range Interpretation Comments ANDIE SPECIES (test code = 62350) NEGATIVE G. VAGINALIS (test code = 49219) NEGATIVE T. VAGINALIS (test code = 42824) NEGATIVE VAGINAL PATHOGENS DNA [id number] 00:00:00 Test Item Value Reference Range Interpretation Comments ANDIE SPECIES (test code = 84032) NEGATIVE G. VAGINALIS (test code = 83794) NEGATIVE T. VAGINALIS (test code = 22483) NEGATIVE VAGINAL PATHOGENS DNA [id number] 00:00:00 Test Item Value Reference Range Interpretation Comments ANDIE SPECIES (test code = 59103) NEGATIVE G. VAGINALIS (test code = 35338) NEGATIVE T. VAGINALIS (test code = 41168) NEGATIVE VAGINAL PATHOGENS DNA [id number] 00:00:00 Test Item Value Reference Range Interpretation Comments ANDIE SPECIES (test code = 08049) NEGATIVE G. VAGINALIS (test code = 86909) NEGATIVE T. VAGINALIS (test code = 67576) NEGATIVE VAGINAL PATHOGENS DNA [id number] 00:00:00 Test Item Value Reference Range Interpretation Comments ANDIE SPECIES (test code = 76573) NEGATIVE G. VAGINALIS (test code = 77828) NEGATIVE T. VAGINALIS (test code = 95184) NEGATIVE VAGINAL PATHOGENS DNA [id number] 00:00:00 Test Item Value Reference Range Interpretation Comments ANDIE SPECIES (test code = 70837) NEGATIVE G. VAGINALIS (test code = 85518) NEGATIVE T. VAGINALIS (test code = 66316) NEGATIVE VAGINAL PATHOGENS DNA [id number] 00:00:00 Test Item Value Reference Range Interpretation Comments ANDIE SPECIES (test code = 93904) NEGATIVE G. VAGINALIS (test code = 48159) NEGATIVE T. VAGINALIS (test code = 80660) NEGATIVE VAGINAL PATHOGENS DNA [id number] 00:00:00 Test Item Value Reference Range Interpretation Comments ANDIE SPECIES (test code = 84947) NEGATIVE G. VAGINALIS (test code = 78551) NEGATIVE T. VAGINALIS (test code = 48738) NEGATIVE VAGINAL PATHOGENS DNA [id number] 00:00:00 Test Item Value Reference Range Interpretation Comments ANDIE SPECIES (test code = 71080) NEGATIVE G. VAGINALIS (test code = 96063) NEGATIVE T. VAGINALIS (test code = 87387) NEGATIVE VAGINAL PATHOGENS DNA [id number] 00:00:00 Test Item Value Reference Range Interpretation Comments ANDIE SPECIES (test code = 89217) NEGATIVE G. VAGINALIS (test code = 86621) NEGATIVE T. VAGINALIS (test code = 94755) NEGATIVE VAGINAL PATHOGENS DNA [id number] 00:00:00 Test Item Value Reference Range Interpretation Comments ANDIE SPECIES (test code = 79662) NEGATIVE G. VAGINALIS (test code = 77942) NEGATIVE T. VAGINALIS (test code = 45421) NEGATIVE VAGINAL PATHOGENS DNA [id number] 00:00:00 Test Item Value Reference Range Interpretation Comments ANDIE SPECIES (test code = 48172) NEGATIVE G. VAGINALIS (test code = 05237) NEGATIVE T. VAGINALIS (test code = 68208) NEGATIVE VAGINAL PATHOGENS DNA [id number] 00:00:00 Test Item Value Reference Range Interpretation Comments ANDIE SPECIES (test code = 29224) NEGATIVE G. VAGINALIS (test code = 01049) NEGATIVE T. VAGINALIS (test code = 19739) NEGATIVE COMPREHENSIVE METABOLIC [id number] 00:00:00 Test Item Value Reference Range Interpretation Comments GLUCOSE (test code = 2217) 138 MG/DL BUN (test code = 2208) 13 MG/DL CREATININE (test code = 2214) 0.50 MG/DL eGFR AMER. (test code 141 ML/MIN/1.73 = 77398) eGFR NON- AMER. (test 122 ML/MIN/1.73 code = 11528) CALC BUN/CREAT (test code = 26 RATIO [...] code = 2219) 41 U/L COMPREHENSIVE METABOLIC [id number] 00:00:00 Test Item Value Reference Range Interpretation Comments GLUCOSE (test code = 2217) 138 MG/DL BUN (test code = 2208) 13 MG/DL CREATININE (test code = 2214) 0.50 MG/DL eGFR AMER. (test code 141 ML/MIN/1.73 = 82951) eGFR NON- AMER. (test 122 ML/MIN/1.73 code = 78116) CALC BUN/CREAT (test code = 26 RATIO [...] (test code = 2219) 41 U/L LIPID [id number] 00:00:00 Test Item Value Reference Range Interpretation Comments CHOLESTEROL (test code = 2210) 359 MG/DL TRIGLYCERIDES (test code = 2232) 1659 MG/DL HDL CHOLESTEROL (test code = 15 MG/DL 2220) CALC LDL CHOL (test code = 2237) NOTE MG/DL RISK RATIO LDL/HDL (test code = (NOTE) RATIO 2238) LIPID [id number] 00:00:00 Test Item Value Reference Range Interpretation Comments CHOLESTEROL (test code = 2210) 359 MG/DL TRIGLYCERIDES (test code = 2232) 1659 MG/DL HDL CHOLESTEROL (test code = 15 MG/DL 2220) CALC LDL CHOL (test code = 2237) NOTE MG/DL RISK RATIO LDL/HDL (test code = (NOTE) RATIO 2238) CBC W/AUTO [id number] 00:00:00 Test Item Value Reference Range Interpretation [...] code = 1015) 287 K/UL CBC W/AUTO [id number] 00:00:00 Test Item Value Reference Range Interpretation [...] code = 1015) 287 K/UL CBC W/AUTO [id number] 00:00:00 Test Item Value Reference Range Interpretation [...] (test code = 1015) 287 K/UL HEMOGLOBIN [id number] 00:00:00 Test Item Value Reference Range Interpretation Comments HEMOGLOBIN A1c (test code = 17853) 9.8 % HEMOGLOBIN [id number] 00:00:00 Test Item Value Reference Range Interpretation Comments HEMOGLOBIN A1c (test code = 31632) 9.8 % HEMOGLOBIN [id number] 00:00:00 Test Item Value Reference Range Interpretation Comments HEMOGLOBIN A1c (test code = 98664) 9.8 % [id number] 00:00:00 Test Item Value Reference Range Interpretation Comments TSH (test code = 2821) 2.110 UIU/ML [id number] 00:00:00 Test Item Value Reference Range Interpretation Comments TSH (test code = 2821) 2.110 UIU/ML [id number] 00:00:00 Test Item Value Reference Range Interpretation Comments TSH (test code = 2821) 2.110 UIU/ML COMPREHENSIVE METABOLIC [id number] 00:00:00 Test Item Value Reference Range Interpretation Comments GLUCOSE (test code = 2217) 138 MG/DL BUN (test code = 2208) 13 MG/DL CREATININE (test code = 2214) 0.50 MG/DL eGFR AMER. (test code 141 ML/MIN/1.73 = 46516) eGFR NON- AMER. (test 122 ML/MIN/1.73 code = 04349) CALC BUN/CREAT (test code = 26 RATIO [...] code = 2219) 41 U/L COMPREHENSIVE METABOLIC [id number] 00:00:00 Test Item Value Reference Range Interpretation Comments GLUCOSE (test code = 2217) 138 MG/DL BUN (test code = 2208) 13 MG/DL CREATININE (test code = 2214) 0.50 MG/DL eGFR AMER. (test code 141 ML/MIN/1.73 = 43874) eGFR NON- AMER. (test 122 ML/MIN/1.73 code = 86052) CALC BUN/CREAT (test code = 26 RATIO [...] (test code = 2219) 41 U/L LIPID [id number] 00:00:00 Test Item Value Reference Range Interpretation Comments CHOLESTEROL (test code = 2210) 359 MG/DL TRIGLYCERIDES (test code = 2232) 1659 MG/DL HDL CHOLESTEROL (test code = 15 MG/DL 2220) CALC LDL CHOL (test code = 2237) NOTE MG/DL RISK RATIO LDL/HDL (test code = (NOTE) RATIO 2238) LIPID [id number] 00:00:00 Test Item Value Reference Range Interpretation Comments CHOLESTEROL (test code = 2210) 359 MG/DL TRIGLYCERIDES (test code = 2232) 1659 MG/DL HDL CHOLESTEROL (test code = 15 MG/DL 2220) CALC LDL CHOL (test code = 2237) NOTE MG/DL RISK RATIO LDL/HDL (test code = (NOTE) RATIO 2238) CBC W/AUTO [id number] 00:00:00 Test Item Value Reference Range Interpretation [...] code = 1015) 287 K/UL CBC W/AUTO [id number] 00:00:00 Test Item Value Reference Range Interpretation [...] code = 1015) 287 K/UL CBC W/AUTO [id number] 00:00:00 Test Item Value Reference Range Interpretation [...] (test code = 1015) 287 K/UL HEMOGLOBIN [id number] 00:00:00 Test Item Value Reference Range Interpretation Comments HEMOGLOBIN A1c (test code = 65185) 9.8 % HEMOGLOBIN [id number] 00:00:00 Test Item Value Reference Range Interpretation Comments HEMOGLOBIN A1c (test code = 70313) 9.8 % HEMOGLOBIN [id number] 00:00:00 Test Item Value Reference Range Interpretation Comments HEMOGLOBIN A1c (test code = 75282) 9.8 % [id number] 00:00:00 Test Item Value Reference Range Interpretation Comments TSH (test code = 2821) 2.110 UIU/ML [id number] 00:00:00 Test Item Value Reference Range Interpretation Comments TSH (test code = 2821) 2.110 UIU/ML [id number] 00:00:00 Test Item Value Reference Range Interpretation Comments TSH (test code = 2821) 2.110 UIU/ML COMPREHENSIVE METABOLIC [id number] 00:00:00 Test Item Value Reference Range Interpretation Comments GLUCOSE (test code = 2217) 138 MG/DL BUN (test code = 2208) 13 MG/DL CREATININE (test code = 2214) 0.50 MG/DL eGFR AMER. (test code 141 ML/MIN/1.73 = 43709) eGFR NON- AMER. (test 122 ML/MIN/1.73 code = 73366) CALC BUN/CREAT (test code = 26 RATIO [...] code = 2219) 41 U/L COMPREHENSIVE METABOLIC [id number] 00:00:00 Test Item Value Reference Range Interpretation Comments GLUCOSE (test code = 2217) 138 MG/DL BUN (test code = 2208) 13 MG/DL CREATININE (test code = 2214) 0.50 MG/DL eGFR AMER. (test code 141 ML/MIN/1.73 = 13594) eGFR NON- AMER. (test 122 ML/MIN/1.73 code = 95684) CALC BUN/CREAT (test code = 26 RATIO [...] (test code = 2219) 41 U/L LIPID [id number] 00:00:00 Test Item Value Reference Range Interpretation Comments CHOLESTEROL (test code = 2210) 359 MG/DL TRIGLYCERIDES (test code = 2232) 1659 MG/DL HDL CHOLESTEROL (test code = 15 MG/DL 2220) CALC LDL CHOL (test code = 2237) NOTE MG/DL RISK RATIO LDL/HDL (test code = (NOTE) RATIO 2238) LIPID [id number] 00:00:00 Test Item Value Reference Range Interpretation Comments CHOLESTEROL (test code = 2210) 359 MG/DL TRIGLYCERIDES (test code = 2232) 1659 MG/DL HDL CHOLESTEROL (test code = 15 MG/DL 2220) CALC LDL CHOL (test code = 2237) NOTE MG/DL RISK RATIO LDL/HDL (test code = (NOTE) RATIO 2238) CBC W/AUTO [id number] 00:00:00 Test Item Value Reference Range Interpretation [...] code = 1015) 287 K/UL CBC W/AUTO [id number] 00:00:00 Test Item Value Reference Range Interpretation [...] code = 1015) 287 K/UL CBC W/AUTO [id number] 00:00:00 Test Item Value Reference Range Interpretation [...] (test code = 1015) 287 K/UL HEMOGLOBIN [id number] 00:00:00 Test Item Value Reference Range Interpretation Comments HEMOGLOBIN A1c (test code = 21169) 9.8 % HEMOGLOBIN [id number] 00:00:00 Test Item Value Reference Range Interpretation Comments HEMOGLOBIN A1c (test code = 97313) 9.8 % HEMOGLOBIN [id number] 00:00:00 Test Item Value Reference Range Interpretation Comments HEMOGLOBIN A1c (test code = 10292) 9.8 % [id number] 00:00:00 Test Item Value Reference Range Interpretation Comments TSH (test code = 2821) 2.110 UIU/ML [id number] 00:00:00 Test Item Value Reference Range Interpretation Comments TSH (test code = 2821) 2.110 UIU/ML [id number] 00:00:00 Test Item Value Reference Range Interpretation Comments TSH (test code = 2821) 2.110 UIU/ML COMPREHENSIVE METABOLIC [id number] 00:00:00 Test Item Value Reference Range Interpretation Comments GLUCOSE (test code = 2217) 138 MG/DL BUN (test code = 2208) 13 MG/DL CREATININE (test code = 2214) 0.50 MG/DL eGFR AMER. (test code 141 ML/MIN/1.73 = 48924) eGFR NON- AMER. (test 122 ML/MIN/1.73 code = 45131) CALC BUN/CREAT (test code = 26 RATIO [...] code = 2219) 41 U/L COMPREHENSIVE METABOLIC [id number] 00:00:00 Test Item Value Reference Range Interpretation Comments GLUCOSE (test code = 2217) 138 MG/DL BUN (test code = 2208) 13 MG/DL CREATININE (test code = 2214) 0.50 MG/DL eGFR AMER. (test code 141 ML/MIN/1.73 = 22751) eGFR NON- AMER. (test 122 ML/MIN/1.73 code = 46558) CALC BUN/CREAT (test code = 26 RATIO [...] (test code = 2219) 41 U/L LIPID [id number] 00:00:00 Test Item Value Reference Range Interpretation Comments CHOLESTEROL (test code = 2210) 359 MG/DL TRIGLYCERIDES (test code = 2232) 1659 MG/DL HDL CHOLESTEROL (test code = 15 MG/DL 2220) CALC LDL CHOL (test code = 2237) NOTE MG/DL RISK RATIO LDL/HDL (test code = (NOTE) RATIO 2238) LIPID [id number] 00:00:00 Test Item Value Reference Range Interpretation Comments CHOLESTEROL (test code = 2210) 359 MG/DL TRIGLYCERIDES (test code = 2232) 1659 MG/DL HDL CHOLESTEROL (test code = 15 MG/DL 2220) CALC LDL CHOL (test code = 2237) NOTE MG/DL RISK RATIO LDL/HDL (test code = (NOTE) RATIO 2238) CBC W/AUTO [id number] 00:00:00 Test Item Value Reference Range Interpretation [...] code = 1015) 287 K/UL CBC W/AUTO [id number] 00:00:00 Test Item Value Reference Range Interpretation [...] code = 1015) 287 K/UL CBC W/AUTO [id number] 00:00:00 Test Item Value Reference Range Interpretation [...] (test code = 1015) 287 K/UL HEMOGLOBIN [id number] 00:00:00 Test Item Value Reference Range Interpretation Comments HEMOGLOBIN A1c (test code = 18415) 9.8 % HEMOGLOBIN [id number] 00:00:00 Test Item Value Reference Range Interpretation Comments HEMOGLOBIN A1c (test code = 81949) 9.8 % HEMOGLOBIN [id number] 00:00:00 Test Item Value Reference Range Interpretation Comments HEMOGLOBIN A1c (test code = 15164) 9.8 % [id number] 00:00:00 Test Item Value Reference Range Interpretation Comments TSH (test code = 2821) 2.110 UIU/ML [id number] 00:00:00 Test Item Value Reference Range Interpretation Comments TSH (test code = 2821) 2.110 UIU/ML [id number] 00:00:00 Test Item Value Reference Range Interpretation Comments TSH (test code = 2821) 2.110 UIU/ML COMPREHENSIVE METABOLIC [id number] 00:00:00 Test Item Value Reference Range Interpretation Comments GLUCOSE (test code = 2217) 138 MG/DL BUN (test code = 2208) 13 MG/DL CREATININE (test code = 2214) 0.50 MG/DL eGFR AMER. (test code 141 ML/MIN/1.73 = 38474) eGFR NON- AMER. (test 122 ML/MIN/1.73 code = 77803) CALC BUN/CREAT (test code = 26 RATIO [...] code = 2219) 41 U/L COMPREHENSIVE METABOLIC [id number] 00:00:00 Test Item Value Reference Range Interpretation Comments GLUCOSE (test code = 2217) 138 MG/DL BUN (test code = 2208) 13 MG/DL CREATININE (test code = 2214) 0.50 MG/DL eGFR AMER. (test code 141 ML/MIN/1.73 = 61540) eGFR NON- AMER. (test 122 ML/MIN/1.73 code = 55472) CALC BUN/CREAT (test code = 26 RATIO [...] (test code = 2219) 41 U/L LIPID [id number] 00:00:00 Test Item Value Reference Range Interpretation Comments CHOLESTEROL (test code = 2210) 359 MG/DL TRIGLYCERIDES (test code = 2232) 1659 MG/DL HDL CHOLESTEROL (test code = 15 MG/DL 2220) CALC LDL CHOL (test code = 2237) NOTE MG/DL RISK RATIO LDL/HDL (test code = (NOTE) RATIO 2238) LIPID [id number] 00:00:00 Test Item Value Reference Range Interpretation Comments CHOLESTEROL (test code = 2210) 359 MG/DL TRIGLYCERIDES (test code = 2232) 1659 MG/DL HDL CHOLESTEROL (test code = 15 MG/DL 2220) CALC LDL CHOL (test code = 2237) NOTE MG/DL RISK RATIO LDL/HDL (test code = (NOTE) RATIO 2238) CBC W/AUTO [id number] 00:00:00 Test Item Value Reference Range Interpretation [...] code = 1015) 287 K/UL CBC W/AUTO [id number] 00:00:00 Test Item Value Reference Range Interpretation [...] code = 1015) 287 K/UL CBC W/AUTO [id number] 00:00:00 Test Item Value Reference Range Interpretation [...] (test code = 1015) 287 K/UL HEMOGLOBIN [id number] 00:00:00 Test Item Value Reference Range Interpretation Comments HEMOGLOBIN A1c (test code = 77917) 9.8 % HEMOGLOBIN [id number] 00:00:00 Test Item Value Reference Range Interpretation Comments HEMOGLOBIN A1c (test code = 07768) 9.8 % HEMOGLOBIN [id number] 00:00:00 Test Item Value Reference Range Interpretation Comments HEMOGLOBIN A1c (test code = 31023) 9.8 % [id number] 00:00:00 Test Item Value Reference Range Interpretation Comments TSH (test code = 2821) 2.110 UIU/ML [id number] 00:00:00 Test Item Value Reference Range Interpretation Comments TSH (test code = 2821) 2.110 UIU/ML [id number] 00:00:00 Test Item Value Reference Range Interpretation Comments TSH (test code = 2821) 2.110 UIU/ML COMPREHENSIVE METABOLIC [id number] 00:00:00 Test Item Value Reference Range Interpretation Comments GLUCOSE (test code = 2217) 138 MG/DL BUN (test code = 2208) 13 MG/DL CREATININE (test code = 2214) 0.50 MG/DL eGFR AMER. (test code 141 ML/MIN/1.73 = 56636) eGFR NON- AMER. (test 122 ML/MIN/1.73 code = 41665) CALC BUN/CREAT (test code = 26 RATIO [...] code = 2219) 41 U/L COMPREHENSIVE METABOLIC [id number] 00:00:00 Test Item Value Reference Range Interpretation Comments GLUCOSE (test code = 2217) 138 MG/DL BUN (test code = 2208) 13 MG/DL CREATININE (test code = 2214) 0.50 MG/DL eGFR AMER. (test code 141 ML/MIN/1.73 = 69023) eGFR NON- AMER. (test 122 ML/MIN/1.73 code = 23466) CALC BUN/CREAT (test code = 26 RATIO [...] (test code = 2219) 41 U/L LIPID [id number] 00:00:00 Test Item Value Reference Range Interpretation Comments CHOLESTEROL (test code = 2210) 359 MG/DL TRIGLYCERIDES (test code = 2232) 1659 MG/DL HDL CHOLESTEROL (test code = 15 MG/DL 2220) CALC LDL CHOL (test code = 2237) NOTE MG/DL RISK RATIO LDL/HDL (test code = (NOTE) RATIO 2238) LIPID [id number] 00:00:00 Test Item Value Reference Range Interpretation Comments CHOLESTEROL (test code = 2210) 359 MG/DL TRIGLYCERIDES (test code = 2232) 1659 MG/DL HDL CHOLESTEROL (test code = 15 MG/DL 2220) CALC LDL CHOL (test code = 2237) NOTE MG/DL RISK RATIO LDL/HDL (test code = (NOTE) RATIO 2238) CBC W/AUTO [id number] 00:00:00 Test Item Value Reference Range Interpretation [...] code = 1015) 287 K/UL CBC W/AUTO [id number] 00:00:00 Test Item Value Reference Range Interpretation [...] code = 1015) 287 K/UL CBC W/AUTO [id number] 00:00:00 Test Item Value Reference Range Interpretation [...] (test code = 1015) 287 K/UL HEMOGLOBIN [id number] 00:00:00 Test Item Value Reference Range Interpretation Comments HEMOGLOBIN A1c (test code = 49212) 9.8 % HEMOGLOBIN [id number] 00:00:00 Test Item Value Reference Range Interpretation Comments HEMOGLOBIN A1c (test code = 36929) 9.8 % HEMOGLOBIN [id number] 00:00:00 Test Item Value Reference Range Interpretation Comments HEMOGLOBIN A1c (test code = 64047) 9.8 % [id number] 00:00:00 Test Item Value Reference Range Interpretation Comments TSH (test code = 2821) 2.110 UIU/ML [id number] 00:00:00 Test Item Value Reference Range Interpretation Comments TSH (test code = 2821) 2.110 UIU/ML [id number] 00:00:00 Test Item Value Reference Range Interpretation Comments TSH (test code = 2821) 2.110 UIU/ML COMPREHENSIVE METABOLIC [id number] 00:00:00 Test Item Value Reference Range Interpretation Comments GLUCOSE (test code = 2217) 138 MG/DL BUN (test code = 2208) 13 MG/DL CREATININE (test code = 2214) 0.50 MG/DL eGFR AMER. (test code 141 ML/MIN/1.73 = 33128) eGFR NON- AMER. (test 122 ML/MIN/1.73 code = 53395) CALC BUN/CREAT (test code = 26 RATIO [...] code = 2219) 41 U/L COMPREHENSIVE METABOLIC [id number] 00:00:00 Test Item Value Reference Range Interpretation Comments GLUCOSE (test code = 2217) 138 MG/DL BUN (test code = 2208) 13 MG/DL CREATININE (test code = 2214) 0.50 MG/DL eGFR AMER. (test code 141 ML/MIN/1.73 = 62889) eGFR NON- AMER. (test 122 ML/MIN/1.73 code = 38917) CALC BUN/CREAT (test code = 26 RATIO [...] (test code = 2219) 41 U/L LIPID [id number] 00:00:00 Test Item Value Reference Range Interpretation Comments CHOLESTEROL (test code = 2210) 359 MG/DL TRIGLYCERIDES (test code = 2232) 1659 MG/DL HDL CHOLESTEROL (test code = 15 MG/DL 2220) CALC LDL CHOL (test code = 2237) NOTE MG/DL RISK RATIO LDL/HDL (test code = (NOTE) RATIO 2238) LIPID [id number] 00:00:00 Test Item Value Reference Range Interpretation Comments CHOLESTEROL (test code = 2210) 359 MG/DL TRIGLYCERIDES (test code = 2232) 1659 MG/DL HDL CHOLESTEROL (test code = 15 MG/DL 2220) CALC LDL CHOL (test code = 2237) NOTE MG/DL RISK RATIO LDL/HDL (test code = (NOTE) RATIO 2238) CBC W/AUTO [id number] 00:00:00 Test Item Value Reference Range Interpretation [...] code = 1015) 287 K/UL CBC W/AUTO [id number] 00:00:00 Test Item Value Reference Range Interpretation [...] code = 1015) 287 K/UL CBC W/AUTO [id number] 00:00:00 Test Item Value Reference Range Interpretation [...] (test code = 1015) 287 K/UL HEMOGLOBIN [id number] 00:00:00 Test Item Value Reference Range Interpretation Comments HEMOGLOBIN A1c (test code = 93177) 9.8 % HEMOGLOBIN [id number] 00:00:00 Test Item Value Reference Range Interpretation Comments HEMOGLOBIN A1c (test code = 26394) 9.8 % HEMOGLOBIN [id number] 00:00:00 Test Item Value Reference Range Interpretation Comments HEMOGLOBIN A1c (test code = 96125) 9.8 % [id number] 00:00:00 Test Item Value Reference Range Interpretation Comments TSH (test code = 2821) 2.110 UIU/ML [id number] 00:00:00 Test Item Value Reference Range Interpretation Comments TSH (test code = 2821) 2.110 UIU/ML [id number] 00:00:00 Test Item Value Reference Range Interpretation Comments TSH (test code = 2821) 2.110 UIU/ML COMPREHENSIVE METABOLIC [id number] 00:00:00 Test Item Value Reference Range Interpretation Comments GLUCOSE (test code = 2217) 138 MG/DL BUN (test code = 2208) 13 MG/DL CREATININE (test code = 2214) 0.50 MG/DL eGFR AMER. (test code 141 ML/MIN/1.73 = 91863) eGFR NON- AMER. (test 122 ML/MIN/1.73 code = 79312) CALC BUN/CREAT (test code = 26 RATIO [...] (test code = 2219) 41 U/L LIPID [id number] 00:00:00 Test Item Value Reference Range Interpretation Comments CHOLESTEROL (test code = 2210) 359 MG/DL TRIGLYCERIDES (test code = 2232) 1659 MG/DL HDL CHOLESTEROL (test code = 15 MG/DL 2219) CALC LDL CHOL (test code = 2237) NOTE MG/DL RISK RATIO LDL/HDL (test code = (NOTE) RATIO 2238) CBC W/AUTO [id number] 00:00:00 Test Item Value Reference Range Interpretation [...] code = 1015) 287 K/UL CBC W/AUTO [id number] 00:00:00 Test Item Value Reference Range Interpretation [...] (test code = 1015) 287 K/UL HEMOGLOBIN [id number] 00:00:00 Test Item Value Reference Range Interpretation Comments HEMOGLOBIN A1c (test code = 15270) 9.8 % HEMOGLOBIN [id number] 00:00:00 Test Item Value Reference Range Interpretation Comments HEMOGLOBIN A1c (test code = 49297) 9.8 % COMPREHENSIVE METABOLIC [id number] 00:00:00 Test Item Value Reference Range Interpretation Comments GLUCOSE (test code = 2217) 138 MG/DL BUN (test code = 2208) 13 MG/DL CREATININE (test code = 2214) 0.50 MG/DL eGFR AMER. (test code 141 ML/MIN/1.73 = 26848) eGFR NON- AMER. (test 122 ML/MIN/1.73 code = 97349) CALC BUN/CREAT (test code = 26 RATIO [...] code = 2219) 41 U/L COMPREHENSIVE METABOLIC [id number] 00:00:00 Test Item Value Reference Range Interpretation Comments GLUCOSE (test code = 2217) 138 MG/DL BUN (test code = 2208) 13 MG/DL CREATININE (test code = 2214) 0.50 MG/DL eGFR AMER. (test code 141 ML/MIN/1.73 = 13026) eGFR NON- AMER. (test 122 ML/MIN/1.73 code = 98506) CALC BUN/CREAT (test code = 26 RATIO [...] (test code = 2219) 41 U/L LIPID [id number] 00:00:00 Test Item Value Reference Range Interpretation Comments CHOLESTEROL (test code = 2210) 359 MG/DL TRIGLYCERIDES (test code = 2232) 1659 MG/DL HDL CHOLESTEROL (test code = 15 MG/DL 2220) CALC LDL CHOL (test code = 2237) NOTE MG/DL RISK RATIO LDL/HDL (test code = (NOTE) RATIO 2238) LIPID [id number] 00:00:00 Test Item Value Reference Range Interpretation Comments CHOLESTEROL (test code = 2210) 359 MG/DL TRIGLYCERIDES (test code = 2232) 1659 MG/DL HDL CHOLESTEROL (test code = 15 MG/DL 2220) CALC LDL CHOL (test code = 2237) NOTE MG/DL RISK RATIO LDL/HDL (test code = (NOTE) RATIO 2238) [id number] 00:00:00 Test Item Value Reference Range Interpretation Comments TSH (test code = 2821) 2.110 UIU/ML CBC W/AUTO [id number] 00:00:00 Test Item Value Reference Range Interpretation [...] code = 1015) 287 K/UL CBC W/AUTO [id number] 00:00:00 Test Item Value Reference Range Interpretation [...] code = 1015) 287 K/UL CBC W/AUTO [id number] 00:00:00 Test Item Value Reference Range Interpretation [...] (test code = 1015) 287 K/UL HEMOGLOBIN [id number] 00:00:00 Test Item Value Reference Range Interpretation Comments HEMOGLOBIN A1c (test code = 50280) 9.8 % HEMOGLOBIN [id number] 00:00:00 Test Item Value Reference Range Interpretation Comments HEMOGLOBIN A1c (test code = 47949) 9.8 % HEMOGLOBIN [id number] 00:00:00 Test Item Value Reference Range Interpretation Comments HEMOGLOBIN A1c (test code = 43099) 9.8 % [id number] 00:00:00 Test Item Value Reference Range Interpretation Comments TSH (test code = 2821) 2.110 UIU/ML [id number] 00:00:00 Test Item Value Reference Range Interpretation Comments TSH (test code = 2821) 2.110 UIU/ML [id number] 00:00:00 Test Item Value Reference Range Interpretation Comments TSH (test code = 2821) 2.110 UIU/ML [id number] 00:00:00 Test Item Value Reference Range Interpretation Comments TSH (test code = 2821) 2.110 UIU/ML COMPREHENSIVE METABOLIC [id number] 00:00:00 Test Item Value Reference Range Interpretation Comments GLUCOSE (test code = 2217) 138 MG/DL BUN (test code = 2208) 13 MG/DL CREATININE (test code = 2214) 0.50 MG/DL eGFR AMER. (test code 141 ML/MIN/1.73 = 81863) eGFR NON- AMER. (test 122 ML/MIN/1.73 code = 88244) CALC BUN/CREAT (test code = 26 RATIO [...] code = 2219) 41 U/L COMPREHENSIVE METABOLIC [id number] 00:00:00 Test Item Value Reference Range Interpretation Comments GLUCOSE (test code = 2217) 138 MG/DL BUN (test code = 2208) 13 MG/DL CREATININE (test code = 2214) 0.50 MG/DL eGFR AMER. (test code 141 ML/MIN/1.73 = 06065) eGFR NON- AMER. (test 122 ML/MIN/1.73 code = 84768) CALC BUN/CREAT (test code = 26 RATIO [...] (test code = 2219) 41 U/L LIPID [id number] 00:00:00 Test Item Value Reference Range Interpretation Comments CHOLESTEROL (test code = 2210) 359 MG/DL TRIGLYCERIDES (test code = 2232) 1659 MG/DL HDL CHOLESTEROL (test code = 15 MG/DL 2220) CALC LDL CHOL (test code = 2237) NOTE MG/DL RISK RATIO LDL/HDL (test code = (NOTE) RATIO 2238) LIPID [id number] 00:00:00 Test Item Value Reference Range Interpretation Comments CHOLESTEROL (test code = 2210) 359 MG/DL TRIGLYCERIDES (test code = 2232) 1659 MG/DL HDL CHOLESTEROL (test code = 15 MG/DL 2220) CALC LDL CHOL (test code = 2237) NOTE MG/DL RISK RATIO LDL/HDL (test code = (NOTE) RATIO 2238) CBC W/AUTO [id number] 00:00:00 Test Item Value Reference Range Interpretation [...] code = 1015) 287 K/UL CBC W/AUTO [id number] 00:00:00 Test Item Value Reference Range Interpretation [...] code = 1015) 287 K/UL CBC W/AUTO [id number] 00:00:00 Test Item Value Reference Range Interpretation [...] (test code = 1015) 287 K/UL HEMOGLOBIN [id number] 00:00:00 Test Item Value Reference Range Interpretation Comments HEMOGLOBIN A1c (test code = 11966) 9.8 % HEMOGLOBIN [id number] 00:00:00 Test Item Value Reference Range Interpretation Comments HEMOGLOBIN A1c (test code = 35096) 9.8 % HEMOGLOBIN [id number] 00:00:00 Test Item Value Reference Range Interpretation Comments HEMOGLOBIN A1c (test code = 70946) 9.8 % [id number] 00:00:00 Test Item Value Reference Range Interpretation Comments TSH (test code = 2821) 2.110 UIU/ML [id number] 00:00:00 Test Item Value Reference Range Interpretation Comments TSH (test code = 2821) 2.110 UIU/ML [id number] 00:00:00 Test Item Value Reference Range Interpretation Comments TSH (test code = 2821) 2.110 UIU/ML COMPREHENSIVE METABOLIC [id number] 00:00:00 Test Item Value Reference Range Interpretation Comments GLUCOSE (test code = 2217) 138 MG/DL BUN (test code = 2208) 13 MG/DL CREATININE (test code = 2214) 0.50 MG/DL eGFR AMER. (test code 141 ML/MIN/1.73 = 25695) eGFR NON- AMER. (test 122 ML/MIN/1.73 code = 91193) CALC BUN/CREAT (test code = 26 RATIO [...] code = 2219) 41 U/L COMPREHENSIVE METABOLIC [id number] 00:00:00 Test Item Value Reference Range Interpretation Comments GLUCOSE (test code = 2217) 138 MG/DL BUN (test code = 2208) 13 MG/DL CREATININE (test code = 2214) 0.50 MG/DL eGFR AMER. (test code 141 ML/MIN/1.73 = 04217) eGFR NON- AMER. (test 122 ML/MIN/1.73 code = 13676) CALC BUN/CREAT (test code = 26 RATIO [...] (test code = 2219) 41 U/L LIPID [id number] 00:00:00 Test Item Value Reference Range Interpretation Comments CHOLESTEROL (test code = 2210) 359 MG/DL TRIGLYCERIDES (test code = 2232) 1659 MG/DL HDL CHOLESTEROL (test code = 15 MG/DL 2220) CALC LDL CHOL (test code = 2237) NOTE MG/DL RISK RATIO LDL/HDL (test code = (NOTE) RATIO 2238) LIPID [id number] 00:00:00 Test Item Value Reference Range Interpretation Comments CHOLESTEROL (test code = 2210) 359 MG/DL TRIGLYCERIDES (test code = 2232) 1659 MG/DL HDL CHOLESTEROL (test code = 15 MG/DL 2220) CALC LDL CHOL (test code = 2237) NOTE MG/DL RISK RATIO LDL/HDL (test code = (NOTE) RATIO 2238) CBC W/AUTO [id number] 00:00:00 Test Item Value Reference Range Interpretation [...] code = 1015) 287 K/UL CBC W/AUTO [id number] 00:00:00 Test Item Value Reference Range Interpretation [...] code = 1015) 287 K/UL CBC W/AUTO [id number] 00:00:00 Test Item Value Reference Range Interpretation [...] (test code = 1015) 287 K/UL HEMOGLOBIN [id number] 00:00:00 Test Item Value Reference Range Interpretation Comments HEMOGLOBIN A1c (test code = 96200) 9.8 % HEMOGLOBIN [id number] 00:00:00 Test Item Value Reference Range Interpretation Comments HEMOGLOBIN A1c (test code = 33827) 9.8 % HEMOGLOBIN [id number] 00:00:00 Test Item Value Reference Range Interpretation Comments HEMOGLOBIN A1c (test code = 61578) 9.8 % [id number] 00:00:00 Test Item Value Reference Range Interpretation Comments TSH (test code = 2821) 2.110 UIU/ML [id number] 00:00:00 Test Item Value Reference Range Interpretation Comments TSH (test code = 2821) 2.110 UIU/ML [id number] 00:00:00 Test Item Value Reference Range Interpretation Comments TSH (test code = 2821) 2.110 UIU/ML LIPID [id number] 00:00:00 Test Item Value Reference Range Interpretation Comments CHOLESTEROL (test code = 2210) 195 MG/DL TRIGLYCERIDES (test code = 2232) 505 MG/DL HDL CHOLESTEROL (test code = 35 MG/DL 2220) CALC LDL CHOL (test code = 2237) NOTE MG/DL RISK RATIO LDL/HDL (test code = (NOTE) RATIO 2238) LIPID [id number] 00:00:00 Test Item Value Reference Range Interpretation [...] (test code = 2821) 2.000 UIU/ML LIPID [id number] 00:00:00 Test Item Value Reference Range Interpretation Comments CHOLESTEROL (test code = 2210) 195 MG/DL TRIGLYCERIDES (test code = 2232) 505 MG/DL HDL CHOLESTEROL (test code = 35 MG/DL 2220) CALC LDL CHOL (test code = 2237) NOTE MG/DL RISK RATIO LDL/HDL (test code = (NOTE) RATIO 2238) LIPID [id number] 00:00:00 Test Item Value Reference Range Interpretation [...] (test code = 2821) 2.000 UIU/ML LIPID [id number] 00:00:00 Test Item Value Reference Range Interpretation Comments CHOLESTEROL (test code = 2210) 195 MG/DL TRIGLYCERIDES (test code = 2232) 505 MG/DL HDL CHOLESTEROL (test code = 35 MG/DL 2220) CALC LDL CHOL (test code = 2237) NOTE MG/DL RISK RATIO LDL/HDL (test code = (NOTE) RATIO 2238) LIPID [id number] 00:00:00 Test Item Value Reference Range Interpretation [...] (test code = 2821) 2.000 UIU/ML LIPID [id number] 00:00:00 Test Item Value Reference Range Interpretation Comments CHOLESTEROL (test code = 2210) 195 MG/DL TRIGLYCERIDES (test code = 2232) 505 MG/DL HDL CHOLESTEROL (test code = 35 MG/DL 2220) CALC LDL CHOL (test code = 2237) NOTE MG/DL RISK RATIO LDL/HDL (test code = (NOTE) RATIO 2238) LIPID [id number] 00:00:00 Test Item Value Reference Range Interpretation [...] (test code = 2821) 2.000 UIU/ML LIPID [id number] 00:00:00 Test Item Value Reference Range Interpretation Comments CHOLESTEROL (test code = 2210) 195 MG/DL TRIGLYCERIDES (test code = 2232) 505 MG/DL HDL CHOLESTEROL (test code = 35 MG/DL 2220) CALC LDL CHOL (test code = 2237) NOTE MG/DL RISK RATIO LDL/HDL (test code = (NOTE) RATIO 2238) LIPID [id number] 00:00:00 Test Item Value Reference Range Interpretation [...] (test code = 2821) 2.000 UIU/ML LIPID [id number] 00:00:00 Test Item Value Reference Range Interpretation Comments CHOLESTEROL (test code = 2210) 195 MG/DL TRIGLYCERIDES (test code = 2232) 505 MG/DL HDL CHOLESTEROL (test code = 35 MG/DL 2220) CALC LDL CHOL (test code = 2237) NOTE MG/DL RISK RATIO LDL/HDL (test code = (NOTE) RATIO 2238) LIPID [id number] 00:00:00 Test Item Value Reference Range Interpretation [...] (test code = 2821) 2.000 UIU/ML LIPID [id number] 00:00:00 Test Item Value Reference Range Interpretation Comments CHOLESTEROL (test code = 2210) 195 MG/DL TRIGLYCERIDES (test code = 2232) 505 MG/DL HDL CHOLESTEROL (test code = 35 MG/DL 2220) CALC LDL CHOL (test code = 2237) NOTE MG/DL RISK RATIO LDL/HDL (test code = (NOTE) RATIO 2238) LIPID [id number] 00:00:00 Test Item Value Reference Range Interpretation [...] (test code = 2821) 2.000 UIU/ML LIPID [id number] 00:00:00 Test Item Value Reference Range Interpretation [...] (test code = 2821) 2.000 UIU/ML LIPID [id number] 00:00:00 Test Item Value Reference Range Interpretation Comments CHOLESTEROL (test code = 2210) 195 MG/DL TRIGLYCERIDES (test code = 2232) 505 MG/DL HDL CHOLESTEROL (test code = 35 MG/DL 2220) CALC LDL CHOL (test code = 2237) NOTE MG/DL RISK RATIO LDL/HDL (test code = (NOTE) RATIO 2238) LIPID [id number] 00:00:00 Test Item Value Reference Range Interpretation [...] (test code = 2821) 2.000 UIU/ML LIPID [id number] 00:00:00 Test Item Value Reference Range Interpretation Comments CHOLESTEROL (test code = 2210) 195 MG/DL TRIGLYCERIDES (test code = 2232) 505 MG/DL HDL CHOLESTEROL (test code = 35 MG/DL 2220) CALC LDL CHOL (test code = 2237) NOTE MG/DL RISK RATIO LDL/HDL (test code = (NOTE) RATIO 2238) LIPID [id number] 00:00:00 Test Item Value Reference Range Interpretation [...] (test code = 2821) 2.000 UIU/ML LIPID [id number] 00:00:00 Test Item Value Reference Range Interpretation Comments CHOLESTEROL (test code = 2210) 195 MG/DL TRIGLYCERIDES (test code = 2232) 505 MG/DL HDL CHOLESTEROL (test code = 35 MG/DL 2220) CALC LDL CHOL (test code = 2237) NOTE MG/DL RISK RATIO LDL/HDL (test code = (NOTE) RATIO 2238) LIPID [id number] 00:00:00 Test Item Value Reference Range Interpretation [...] code = 2821) 2.000 UIU/ML COMPREHENSIVE METABOLIC [id number] 00:00:00 Test Item Value Reference Range Interpretation Comments GLUCOSE (test code = 2217) 154 MG/DL BUN (test code = 2208) 12 MG/DL CREATININE (test code = 2214) 0.54 MG/DL eGFR AMER. (test code 139 ML/MIN/1.73 = 40389) eGFR NON- AMER. (test 120 ML/MIN/1.73 code = 53168) CALC BUN/CREAT (test code = 22 RATIO [...] code = 2219) 22 U/L COMPREHENSIVE METABOLIC [id number] 00:00:00 Test Item Value Reference Range Interpretation Comments GLUCOSE (test code = 2217) 154 MG/DL BUN (test code = 2208) 12 MG/DL CREATININE (test code = 2214) 0.54 MG/DL eGFR AMER. (test code 139 ML/MIN/1.73 = 26909) eGFR NON- AMER. (test 120 ML/MIN/1.73 code = 27700) CALC BUN/CREAT (test code = 22 RATIO [...] (test code = 2219) 22 U/L LIPID [id number] 00:00:00 Test Item Value Reference Range Interpretation Comments CHOLESTEROL (test code = 2210) 243 MG/DL TRIGLYCERIDES (test code = 2232) 1140 MG/DL HDL CHOLESTEROL (test code = 31 MG/DL 2220) CALC LDL CHOL (test code = 2237) NOTE MG/DL RISK RATIO LDL/HDL (test code = (NOTE) RATIO 2238) LIPID [id number] 00:00:00 Test Item Value Reference Range Interpretation Comments CHOLESTEROL (test code = 2210) 243 MG/DL TRIGLYCERIDES (test code = 2232) 1140 MG/DL HDL CHOLESTEROL (test code = 31 MG/DL 2220) CALC LDL CHOL (test code = 2237) NOTE MG/DL RISK RATIO LDL/HDL (test code = (NOTE) RATIO 2238) CBC W/AUTO [id number] 00:00:00 Test Item Value Reference Range Interpretation [...] code = 1015) 229 K/UL CBC W/AUTO [id number] 00:00:00 Test Item Value Reference Range Interpretation [...] code = 1015) 229 K/UL CBC W/AUTO [id number] 00:00:00 Test Item Value Reference Range Interpretation [...] (test code = 1015) 229 K/UL HEMOGLOBIN [id number] 00:00:00 Test Item Value Reference Range Interpretation Comments HEMOGLOBIN A1c (test code = 76538) 7.7 % HEMOGLOBIN [id number] 00:00:00 Test Item Value Reference Range Interpretation Comments HEMOGLOBIN A1c (test code = 14941) 7.7 % HEMOGLOBIN [id number] 00:00:00 Test Item Value Reference Range Interpretation Comments HEMOGLOBIN A1c (test code = 62251) 7.7 % COMPREHENSIVE METABOLIC [id number] 00:00:00 Test Item Value Reference Range Interpretation Comments GLUCOSE (test code = 2217) 154 MG/DL BUN (test code = 2208) 12 MG/DL CREATININE (test code = 2214) 0.54 MG/DL eGFR AMER. (test code 139 ML/MIN/1.73 = 42577) eGFR NON- AMER. (test 120 ML/MIN/1.73 code = 28081) CALC BUN/CREAT (test code = 22 RATIO [...] code = 2219) 22 U/L COMPREHENSIVE METABOLIC [id number] 00:00:00 Test Item Value Reference Range Interpretation Comments GLUCOSE (test code = 2217) 154 MG/DL BUN (test code = 2208) 12 MG/DL CREATININE (test code = 2214) 0.54 MG/DL eGFR AMER. (test code 139 ML/MIN/1.73 = 13521) eGFR NON- AMER. (test 120 ML/MIN/1.73 code = 46841) CALC BUN/CREAT (test code = 22 RATIO [...] (test code = 2219) 22 U/L LIPID [id number] 00:00:00 Test Item Value Reference Range Interpretation Comments CHOLESTEROL (test code = 2210) 243 MG/DL TRIGLYCERIDES (test code = 2232) 1140 MG/DL HDL CHOLESTEROL (test code = 31 MG/DL 2220) CALC LDL CHOL (test code = 2237) NOTE MG/DL RISK RATIO LDL/HDL (test code = (NOTE) RATIO 2238) LIPID [id number] 00:00:00 Test Item Value Reference Range Interpretation Comments CHOLESTEROL (test code = 2210) 243 MG/DL TRIGLYCERIDES (test code = 2232) 1140 MG/DL HDL CHOLESTEROL (test code = 31 MG/DL 2220) CALC LDL CHOL (test code = 2237) NOTE MG/DL RISK RATIO LDL/HDL (test code = (NOTE) RATIO 2238) CBC W/AUTO [id number] 00:00:00 Test Item Value Reference Range Interpretation [...] code = 1015) 229 K/UL CBC W/AUTO [id number] 00:00:00 Test Item Value Reference Range Interpretation [...] code = 1015) 229 K/UL CBC W/AUTO [id number] 00:00:00 Test Item Value Reference Range Interpretation [...] (test code = 1015) 229 K/UL HEMOGLOBIN [id number] 00:00:00 Test Item Value Reference Range Interpretation Comments HEMOGLOBIN A1c (test code = 47545) 7.7 % HEMOGLOBIN [id number] 00:00:00 Test Item Value Reference Range Interpretation Comments HEMOGLOBIN A1c (test code = 26971) 7.7 % HEMOGLOBIN [id number] 00:00:00 Test Item Value Reference Range Interpretation Comments HEMOGLOBIN A1c (test code = 44052) 7.7 % COMPREHENSIVE METABOLIC [id number] 00:00:00 Test Item Value Reference Range Interpretation Comments GLUCOSE (test code = 2217) 154 MG/DL BUN (test code = 2208) 12 MG/DL CREATININE (test code = 2214) 0.54 MG/DL eGFR AMER. (test code 139 ML/MIN/1.73 = 93465) eGFR NON- AMER. (test 120 ML/MIN/1.73 code = 18191) CALC BUN/CREAT (test code = 22 RATIO [...] code = 2219) 22 U/L COMPREHENSIVE METABOLIC [id number] 00:00:00 Test Item Value Reference Range Interpretation Comments GLUCOSE (test code = 2217) 154 MG/DL BUN (test code = 2208) 12 MG/DL CREATININE (test code = 2214) 0.54 MG/DL eGFR AMER. (test code 139 ML/MIN/1.73 = 31407) eGFR NON- AMER. (test 120 ML/MIN/1.73 code = 06907) CALC BUN/CREAT (test code = 22 RATIO [...] (test code = 2219) 22 U/L LIPID [id number] 00:00:00 Test Item Value Reference Range Interpretation Comments CHOLESTEROL (test code = 2210) 243 MG/DL TRIGLYCERIDES (test code = 2232) 1140 MG/DL HDL CHOLESTEROL (test code = 31 MG/DL 2220) CALC LDL CHOL (test code = 2237) NOTE MG/DL RISK RATIO LDL/HDL (test code = (NOTE) RATIO 2238) LIPID [id number] 00:00:00 Test Item Value Reference Range Interpretation Comments CHOLESTEROL (test code = 2210) 243 MG/DL TRIGLYCERIDES (test code = 2232) 1140 MG/DL HDL CHOLESTEROL (test code = 31 MG/DL 2220) CALC LDL CHOL (test code = 2237) NOTE MG/DL RISK RATIO LDL/HDL (test code = (NOTE) RATIO 2238) CBC W/AUTO [id number] 00:00:00 Test Item Value Reference Range Interpretation [...] code = 1015) 229 K/UL CBC W/AUTO [id number] 00:00:00 Test Item Value Reference Range Interpretation [...] code = 1015) 229 K/UL CBC W/AUTO [id number] 00:00:00 Test Item Value Reference Range Interpretation [...] (test code = 1015) 229 K/UL HEMOGLOBIN [id number] 00:00:00 Test Item Value Reference Range Interpretation Comments HEMOGLOBIN A1c (test code = 92221) 7.7 % HEMOGLOBIN [id number] 00:00:00 Test Item Value Reference Range Interpretation Comments HEMOGLOBIN A1c (test code = 04851) 7.7 % HEMOGLOBIN [id number] 00:00:00 Test Item Value Reference Range Interpretation Comments HEMOGLOBIN A1c (test code = 79157) 7.7 % COMPREHENSIVE METABOLIC [id number] 00:00:00 Test Item Value Reference Range Interpretation Comments GLUCOSE (test code = 2217) 154 MG/DL BUN (test code = 2208) 12 MG/DL CREATININE (test code = 2214) 0.54 MG/DL eGFR AMER. (test code 139 ML/MIN/1.73 = 63511) eGFR NON- AMER. (test 120 ML/MIN/1.73 code = 45870) CALC BUN/CREAT (test code = 22 RATIO [...] code = 2219) 22 U/L COMPREHENSIVE METABOLIC [id number] 00:00:00 Test Item Value Reference Range Interpretation Comments GLUCOSE (test code = 2217) 154 MG/DL BUN (test code = 2208) 12 MG/DL CREATININE (test code = 2214) 0.54 MG/DL eGFR AMER. (test code 139 ML/MIN/1.73 = 10751) eGFR NON- AMER. (test 120 ML/MIN/1.73 code = 52905) CALC BUN/CREAT (test code = 22 RATIO [...] (test code = 2219) 22 U/L LIPID [id number] 00:00:00 Test Item Value Reference Range Interpretation Comments CHOLESTEROL (test code = 2210) 243 MG/DL TRIGLYCERIDES (test code = 2232) 1140 MG/DL HDL CHOLESTEROL (test code = 31 MG/DL 2220) CALC LDL CHOL (test code = 2237) NOTE MG/DL RISK RATIO LDL/HDL (test code = (NOTE) RATIO 2238) LIPID [id number] 00:00:00 Test Item Value Reference Range Interpretation Comments CHOLESTEROL (test code = 2210) 243 MG/DL TRIGLYCERIDES (test code = 2232) 1140 MG/DL HDL CHOLESTEROL (test code = 31 MG/DL 2220) CALC LDL CHOL (test code = 2237) NOTE MG/DL RISK RATIO LDL/HDL (test code = (NOTE) RATIO 2238) CBC W/AUTO [id number] 00:00:00 Test Item Value Reference Range Interpretation [...] code = 1015) 229 K/UL CBC W/AUTO [id number] 00:00:00 Test Item Value Reference Range Interpretation [...] code = 1015) 229 K/UL CBC W/AUTO [id number] 00:00:00 Test Item Value Reference Range Interpretation [...] (test code = 1015) 229 K/UL HEMOGLOBIN [id number] 00:00:00 Test Item Value Reference Range Interpretation Comments HEMOGLOBIN A1c (test code = 47420) 7.7 % HEMOGLOBIN [id number] 00:00:00 Test Item Value Reference Range Interpretation Comments HEMOGLOBIN A1c (test code = 44214) 7.7 % HEMOGLOBIN [id number] 00:00:00 Test Item Value Reference Range Interpretation Comments HEMOGLOBIN A1c (test code = 57894) 7.7 % COMPREHENSIVE METABOLIC [id number] 00:00:00 Test Item Value Reference Range Interpretation Comments GLUCOSE (test code = 2217) 154 MG/DL BUN (test code = 2208) 12 MG/DL CREATININE (test code = 2214) 0.54 MG/DL eGFR AMER. (test code 139 ML/MIN/1.73 = 80161) eGFR NON- AMER. (test 120 ML/MIN/1.73 code = 49337) CALC BUN/CREAT (test code = 22 RATIO [...] code = 2219) 22 U/L COMPREHENSIVE METABOLIC [id number] 00:00:00 Test Item Value Reference Range Interpretation Comments GLUCOSE (test code = 2217) 154 MG/DL BUN (test code = 2208) 12 MG/DL CREATININE (test code = 2214) 0.54 MG/DL eGFR AMER. (test code 139 ML/MIN/1.73 = 99255) eGFR NON- AMER. (test 120 ML/MIN/1.73 code = 59445) CALC BUN/CREAT (test code = 22 RATIO [...] (test code = 2219) 22 U/L LIPID [id number] 00:00:00 Test Item Value Reference Range Interpretation Comments CHOLESTEROL (test code = 2210) 243 MG/DL TRIGLYCERIDES (test code = 2232) 1140 MG/DL HDL CHOLESTEROL (test code = 31 MG/DL 2220) CALC LDL CHOL (test code = 2237) NOTE MG/DL RISK RATIO LDL/HDL (test code = (NOTE) RATIO 2238) LIPID [id number] 00:00:00 Test Item Value Reference Range Interpretation Comments CHOLESTEROL (test code = 2210) 243 MG/DL TRIGLYCERIDES (test code = 2232) 1140 MG/DL HDL CHOLESTEROL (test code = 31 MG/DL 2220) CALC LDL CHOL (test code = 2237) NOTE MG/DL RISK RATIO LDL/HDL (test code = (NOTE) RATIO 2238) CBC W/AUTO [id number] 00:00:00 Test Item Value Reference Range Interpretation [...] code = 1015) 229 K/UL CBC W/AUTO [id number] 00:00:00 Test Item Value Reference Range Interpretation [...] code = 1015) 229 K/UL CBC W/AUTO [id number] 00:00:00 Test Item Value Reference Range Interpretation [...] (test code = 1015) 229 K/UL HEMOGLOBIN [id number] 00:00:00 Test Item Value Reference Range Interpretation Comments HEMOGLOBIN A1c (test code = 54729) 7.7 % HEMOGLOBIN [id number] 00:00:00 Test Item Value Reference Range Interpretation Comments HEMOGLOBIN A1c (test code = 83379) 7.7 % HEMOGLOBIN [id number] 00:00:00 Test Item Value Reference Range Interpretation Comments HEMOGLOBIN A1c (test code = 65083) 7.7 % COMPREHENSIVE METABOLIC [id number] 00:00:00 Test Item Value Reference Range Interpretation Comments GLUCOSE (test code = 2217) 154 MG/DL BUN (test code = 2208) 12 MG/DL CREATININE (test code = 2214) 0.54 MG/DL eGFR AMER. (test code 139 ML/MIN/1.73 = 92582) eGFR NON- AMER. (test 120 ML/MIN/1.73 code = 70493) CALC BUN/CREAT (test code = 22 RATIO [...] code = 2219) 22 U/L COMPREHENSIVE METABOLIC [id number] 00:00:00 Test Item Value Reference Range Interpretation Comments GLUCOSE (test code = 2217) 154 MG/DL BUN (test code = 2208) 12 MG/DL CREATININE (test code = 2214) 0.54 MG/DL eGFR AMER. (test code 139 ML/MIN/1.73 = 38342) eGFR NON- AMER. (test 120 ML/MIN/1.73 code = 96762) CALC BUN/CREAT (test code = 22 RATIO [...] (test code = 2219) 22 U/L LIPID [id number] 00:00:00 Test Item Value Reference Range Interpretation Comments CHOLESTEROL (test code = 2210) 243 MG/DL TRIGLYCERIDES (test code = 2232) 1140 MG/DL HDL CHOLESTEROL (test code = 31 MG/DL 2220) CALC LDL CHOL (test code = 2237) NOTE MG/DL RISK RATIO LDL/HDL (test code = (NOTE) RATIO 2238) LIPID [id number] 00:00:00 Test Item Value Reference Range Interpretation Comments CHOLESTEROL (test code = 2210) 243 MG/DL TRIGLYCERIDES (test code = 2232) 1140 MG/DL HDL CHOLESTEROL (test code = 31 MG/DL 2220) CALC LDL CHOL (test code = 2237) NOTE MG/DL RISK RATIO LDL/HDL (test code = (NOTE) RATIO 2238) CBC W/AUTO [id number] 00:00:00 Test Item Value Reference Range Interpretation [...] code = 1015) 229 K/UL CBC W/AUTO [id number] 00:00:00 Test Item Value Reference Range Interpretation [...] code = 1015) 229 K/UL CBC W/AUTO [id number] 00:00:00 Test Item Value Reference Range Interpretation [...] (test code = 1015) 229 K/UL HEMOGLOBIN [id number] 00:00:00 Test Item Value Reference Range Interpretation Comments HEMOGLOBIN A1c (test code = 18717) 7.7 % HEMOGLOBIN [id number] 00:00:00 Test Item Value Reference Range Interpretation Comments HEMOGLOBIN A1c (test code = 68414) 7.7 % HEMOGLOBIN [id number] 00:00:00 Test Item Value Reference Range Interpretation Comments HEMOGLOBIN A1c (test code = 79069) 7.7 % COMPREHENSIVE METABOLIC [id number] 00:00:00 Test Item Value Reference Range Interpretation Comments GLUCOSE (test code = 2217) 154 MG/DL BUN (test code = 2208) 12 MG/DL CREATININE (test code = 2214) 0.54 MG/DL eGFR AMER. (test code 139 ML/MIN/1.73 = 93582) eGFR NON- AMER. (test 120 ML/MIN/1.73 code = 77551) CALC BUN/CREAT (test code = 22 RATIO [...] code = 2219) 22 U/L COMPREHENSIVE METABOLIC [id number] 00:00:00 Test Item Value Reference Range Interpretation Comments GLUCOSE (test code = 2217) 154 MG/DL BUN (test code = 2208) 12 MG/DL CREATININE (test code = 2214) 0.54 MG/DL eGFR AMER. (test code 139 ML/MIN/1.73 = 35890) eGFR NON- AMER. (test 120 ML/MIN/1.73 code = 11053) CALC BUN/CREAT (test code = 22 RATIO [...] (test code = 2219) 22 U/L LIPID [id number] 00:00:00 Test Item Value Reference Range Interpretation Comments CHOLESTEROL (test code = 2210) 243 MG/DL TRIGLYCERIDES (test code = 2232) 1140 MG/DL HDL CHOLESTEROL (test code = 31 MG/DL 2220) CALC LDL CHOL (test code = 2237) NOTE MG/DL RISK RATIO LDL/HDL (test code = (NOTE) RATIO 2238) COMPREHENSIVE METABOLIC [id number] 00:00:00 Test Item Value Reference Range Interpretation Comments GLUCOSE (test code = 2217) 154 MG/DL BUN (test code = 2208) 12 MG/DL CREATININE (test code = 2214) 0.54 MG/DL eGFR AMER. (test code 139 ML/MIN/1.73 = 73286) eGFR NON- AMER. (test 120 ML/MIN/1.73 code = 25972) CALC BUN/CREAT (test code = 22 RATIO [...] (test code = 2219) 22 U/L LIPID [id number] 00:00:00 Test Item Value Reference Range Interpretation Comments CHOLESTEROL (test code = 2210) 243 MG/DL TRIGLYCERIDES (test code = 2232) 1140 MG/DL HDL CHOLESTEROL (test code = 31 MG/DL 2220) CALC LDL CHOL (test code = 2237) NOTE MG/DL RISK RATIO LDL/HDL (test code = (NOTE) RATIO 2238) CBC W/AUTO [id number] 00:00:00 Test Item Value Reference Range Interpretation [...] code = 1015) 229 K/UL CBC W/AUTO [id number] 00:00:00 Test Item Value Reference Range Interpretation [...] code = 1015) 229 K/UL CBC W/AUTO [id number] 00:00:00 Test Item Value Reference Range Interpretation [...] (test code = 1015) 229 K/UL HEMOGLOBIN [id number] 00:00:00 Test Item Value Reference Range Interpretation Comments HEMOGLOBIN A1c (test code = 30996) 7.7 % HEMOGLOBIN [id number] 00:00:00 Test Item Value Reference Range Interpretation Comments HEMOGLOBIN A1c (test code = 78810) 7.7 % HEMOGLOBIN [id number] 00:00:00 Test Item Value Reference Range Interpretation Comments HEMOGLOBIN A1c (test code = 61675) 7.7 % LIPID [id number] 00:00:00 Test Item Value Reference Range Interpretation Comments CHOLESTEROL (test code = 2210) 243 MG/DL TRIGLYCERIDES (test code = 2232) 1140 MG/DL HDL CHOLESTEROL (test code = 31 MG/DL 2220) CALC LDL CHOL (test code = 2237) NOTE MG/DL RISK RATIO LDL/HDL (test code = (NOTE) RATIO 2238) CBC W/AUTO [id number] 00:00:00 Test Item Value Reference Range Interpretation [...] code = 1015) 229 K/UL CBC W/AUTO [id number] 00:00:00 Test Item Value Reference Range Interpretation [...] code = 1015) 229 K/UL COMPREHENSIVE METABOLIC [id number] 00:00:00 Test Item Value Reference Range Interpretation Comments GLUCOSE (test code = 2217) 154 MG/DL BUN (test code = 2208) 12 MG/DL CREATININE (test code = 2214) 0.54 MG/DL eGFR AMER. (test code 139 ML/MIN/1.73 = 82959) eGFR NON- AMER. (test 120 ML/MIN/1.73 code = 92140) CALC BUN/CREAT (test code = 22 RATIO [...] code = 2219) 22 U/L COMPREHENSIVE METABOLIC [id number] 00:00:00 Test Item Value Reference Range Interpretation Comments GLUCOSE (test code = 2217) 154 MG/DL BUN (test code = 2208) 12 MG/DL CREATININE (test code = 2214) 0.54 MG/DL eGFR AMER. (test code 139 ML/MIN/1.73 = 04587) eGFR NON- AMER. (test 120 ML/MIN/1.73 code = 80445) CALC BUN/CREAT (test code = 22 RATIO [...] (test code = 2219) 22 U/L HEMOGLOBIN [id number] 00:00:00 Test Item Value Reference Range Interpretation Comments HEMOGLOBIN A1c (test code = 41038) 7.7 % LIPID [id number] 00:00:00 Test Item Value Reference Range Interpretation Comments CHOLESTEROL (test code = 2210) 243 MG/DL TRIGLYCERIDES (test code = 2232) 1140 MG/DL HDL CHOLESTEROL (test code = 31 MG/DL 2220) CALC LDL CHOL (test code = 2237) NOTE MG/DL RISK RATIO LDL/HDL (test code = (NOTE) RATIO 2238) LIPID [id number] 00:00:00 Test Item Value Reference Range Interpretation Comments CHOLESTEROL (test code = 2210) 243 MG/DL TRIGLYCERIDES (test code = 2232) 1140 MG/DL HDL CHOLESTEROL (test code = 31 MG/DL 2220) CALC LDL CHOL (test code = 2237) NOTE MG/DL RISK RATIO LDL/HDL (test code = (NOTE) RATIO 2238) HEMOGLOBIN [id number] 00:00:00 Test Item Value Reference Range Interpretation Comments HEMOGLOBIN A1c (test code = 97438) 7.7 % CBC W/AUTO [id number] 00:00:00 Test Item Value Reference Range Interpretation [...] code = 1015) 229 K/UL CBC W/AUTO [id number] 00:00:00 Test Item Value Reference Range Interpretation [...] code = 1015) 229 K/UL CBC W/AUTO [id number] 00:00:00 Test Item Value Reference Range Interpretation [...] (test code = 1015) 229 K/UL HEMOGLOBIN [id number] 00:00:00 Test Item Value Reference Range Interpretation Comments HEMOGLOBIN A1c (test code = 19085) 7.7 % HEMOGLOBIN [id number] 00:00:00 Test Item Value Reference Range Interpretation Comments HEMOGLOBIN A1c (test code = 81384) 7.7 % HEMOGLOBIN [id number] 00:00:00 Test Item Value Reference Range Interpretation Comments HEMOGLOBIN A1c (test code = 49359) 7.7 % COMPREHENSIVE METABOLIC [id number] 00:00:00 Test Item Value Reference Range Interpretation Comments GLUCOSE (test code = 2217) 154 MG/DL BUN (test code = 2208) 12 MG/DL CREATININE (test code = 2214) 0.54 MG/DL eGFR AMER. (test code 139 ML/MIN/1.73 = 74434) eGFR NON- AMER. (test 120 ML/MIN/1.73 code = 08841) CALC BUN/CREAT (test code = 22 RATIO [...] code = 2219) 22 U/L COMPREHENSIVE METABOLIC [id number] 00:00:00 Test Item Value Reference Range Interpretation Comments GLUCOSE (test code = 2217) 154 MG/DL BUN (test code = 2208) 12 MG/DL CREATININE (test code = 2214) 0.54 MG/DL eGFR AMER. (test code 139 ML/MIN/1.73 = 87739) eGFR NON- AMER. (test 120 ML/MIN/1.73 code = 45025) CALC BUN/CREAT (test code = 22 RATIO [...] (test code = 2219) 22 U/L LIPID [id number] 00:00:00 Test Item Value Reference Range Interpretation Comments CHOLESTEROL (test code = 2210) 243 MG/DL TRIGLYCERIDES (test code = 2232) 1140 MG/DL HDL CHOLESTEROL (test code = 31 MG/DL 2220) CALC LDL CHOL (test code = 2237) NOTE MG/DL RISK RATIO LDL/HDL (test code = (NOTE) RATIO 2238) LIPID [id number] 00:00:00 Test Item Value Reference Range Interpretation Comments CHOLESTEROL (test code = 2210) 243 MG/DL TRIGLYCERIDES (test code = 2232) 1140 MG/DL HDL CHOLESTEROL (test code = 31 MG/DL 2220) CALC LDL CHOL (test code = 2237) NOTE MG/DL RISK RATIO LDL/HDL (test code = (NOTE) RATIO 2238) CBC W/AUTO [id number] 00:00:00 Test Item Value Reference Range Interpretation [...] code = 1015) 229 K/UL CBC W/AUTO [id number] 00:00:00 Test Item Value Reference Range Interpretation [...] code = 1015) 229 K/UL CBC W/AUTO [id number] 00:00:00 Test Item Value Reference Range Interpretation [...] (test code = 1015) 229 K/UL HEMOGLOBIN [id number] 00:00:00 Test Item Value Reference Range Interpretation Comments HEMOGLOBIN A1c (test code = 38759) 7.7 % HEMOGLOBIN [id number] 00:00:00 Test Item Value Reference Range Interpretation Comments HEMOGLOBIN A1c (test code = 62541) 7.7 % HEMOGLOBIN [id number] 00:00:00 Test Item Value Reference Range Interpretation Comments HEMOGLOBIN A1c (test code = 71255) 7.7 % COMPREHENSIVE METABOLIC [id number] 00:00:00 Test Item Value Reference Range Interpretation Comments GLUCOSE (test code = 2217) 154 MG/DL BUN (test code = 2208) 12 MG/DL CREATININE (test code = 2214) 0.54 MG/DL eGFR AMER. (test code 139 ML/MIN/1.73 = 66996) eGFR NON- AMER. (test 120 ML/MIN/1.73 code = 58907) CALC BUN/CREAT (test code = 22 RATIO [...] code = 2219) 22 U/L COMPREHENSIVE METABOLIC [id number] 00:00:00 Test Item Value Reference Range Interpretation Comments GLUCOSE (test code = 2217) 154 MG/DL BUN (test code = 2208) 12 MG/DL CREATININE (test code = 2214) 0.54 MG/DL eGFR AMER. (test code 139 ML/MIN/1.73 = 60557) eGFR NON- AMER. (test 120 ML/MIN/1.73 code = 91763) CALC BUN/CREAT (test code = 22 RATIO [...] (test code = 2219) 22 U/L LIPID [id number] 00:00:00 Test Item Value Reference Range Interpretation Comments CHOLESTEROL (test code = 2210) 243 MG/DL TRIGLYCERIDES (test code = 2232) 1140 MG/DL HDL CHOLESTEROL (test code = 31 MG/DL 2220) CALC LDL CHOL (test code = 2237) NOTE MG/DL RISK RATIO LDL/HDL (test code = (NOTE) RATIO 2238) LIPID [id number] 00:00:00 Test Item Value Reference Range Interpretation Comments CHOLESTEROL (test code = 2210) 243 MG/DL TRIGLYCERIDES (test code = 2232) 1140 MG/DL HDL CHOLESTEROL (test code = 31 MG/DL 2220) CALC LDL CHOL (test code = 2237) NOTE MG/DL RISK RATIO LDL/HDL (test code = (NOTE) RATIO 2238) CBC W/AUTO [id number] 00:00:00 Test Item Value Reference Range Interpretation [...] code = 1015) 229 K/UL CBC W/AUTO [id number] 00:00:00 Test Item Value Reference Range Interpretation [...] code = 1015) 229 K/UL CBC W/AUTO [id number] 00:00:00 Test Item Value Reference Range Interpretation [...] (test code = 1015) 229 K/UL HEMOGLOBIN [id number] 00:00:00 Test Item Value Reference Range Interpretation Comments HEMOGLOBIN A1c (test code = 04994) 7.7 % HEMOGLOBIN [id number] 00:00:00 Test Item Value Reference Range Interpretation Comments HEMOGLOBIN A1c (test code = 73400) 7.7 % HEMOGLOBIN [id number] 00:00:00 Test Item Value Reference Range Interpretation Comments HEMOGLOBIN A1c (test code = 19282) 7.7 % [id number] 00:00:00 Test Item Value Reference Range Interpretation Comments MAGNESIUM (test code = 2226) 1.4 MG/DL [id number] 00:00:00 Test Item Value Reference Range Interpretation Comments MAGNESIUM (test code = 2226) 1.4 MG/DL [id number] 00:00:00 Test Item Value Reference Range Interpretation Comments MAGNESIUM (test code = 2226) 1.4 MG/DL COMPREHENSIVE METABOLIC [id number] 00:00:00 Test Item Value Reference Range Interpretation Comments GLUCOSE (test code = 2217) 234 MG/DL BUN (test code = 2208) 17 MG/DL CREATININE (test code = 2214) 0.54 MG/DL eGFR AMER. (test code 139 ML/MIN/1.73 = 20939) eGFR NON- AMER. (test 120 ML/MIN/1.73 code = 46358) CALC BUN/CREAT (test code = 31 RATIO [...] code = 2219) 22 U/L COMPREHENSIVE METABOLIC [id number] 00:00:00 Test Item Value Reference Range Interpretation Comments GLUCOSE (test code = 2217) 234 MG/DL BUN (test code = 2208) 17 MG/DL CREATININE (test code = 2214) 0.54 MG/DL eGFR AMER. (test code 139 ML/MIN/1.73 = 26350) eGFR NON- AMER. (test 120 ML/MIN/1.73 code = 95117) CALC BUN/CREAT (test code = 31 RATIO [...] (test code = 2219) 22 U/L HEMOGLOBIN [id number] 00:00:00 Test Item Value Reference Range Interpretation Comments HEMOGLOBIN A1c (test code = 49196) 7.7 % HEMOGLOBIN [id number] 00:00:00 Test Item Value Reference Range Interpretation Comments HEMOGLOBIN A1c (test code = 44072) 7.7 % HEMOGLOBIN [id number] 00:00:00 Test Item Value Reference Range Interpretation Comments HEMOGLOBIN A1c (test code = 58909) 7.7 % CBC W/AUTO [id number] 00:00:00 Test Item Value Reference Range Interpretation [...] code = 1015) 224 K/UL CBC W/AUTO [id number] 00:00:00 Test Item Value Reference Range Interpretation [...] code = 1015) 224 K/UL CBC W/AUTO [id number] 00:00:00 Test Item Value Reference Range Interpretation [...] TSH (test code = 2821) <0.10 UIU/ML [id number] 00:00:00 Test Item Value Reference Range Interpretation Comments MAGNESIUM (test code = 2226) 1.4 MG/DL [id number] 00:00:00 Test Item Value Reference Range Interpretation Comments MAGNESIUM (test code = 2226) 1.4 MG/DL [id number] 00:00:00 Test Item Value Reference Range Interpretation Comments MAGNESIUM (test code = 2226) 1.4 MG/DL COMPREHENSIVE METABOLIC [id number] 00:00:00 Test Item Value Reference Range Interpretation Comments GLUCOSE (test code = 2217) 234 MG/DL BUN (test code = 2208) 17 MG/DL CREATININE (test code = 2214) 0.54 MG/DL eGFR AMER. (test code 139 ML/MIN/1.73 = 27795) eGFR NON- AMER. (test 120 ML/MIN/1.73 code = 76504) CALC BUN/CREAT (test code = 31 RATIO [...] code = 2219) 22 U/L COMPREHENSIVE METABOLIC [id number] 00:00:00 Test Item Value Reference Range Interpretation Comments GLUCOSE (test code = 2217) 234 MG/DL BUN (test code = 2208) 17 MG/DL CREATININE (test code = 2214) 0.54 MG/DL eGFR AMER. (test code 139 ML/MIN/1.73 = 89030) eGFR NON- AMER. (test 120 ML/MIN/1.73 code = 30598) CALC BUN/CREAT (test code = 31 RATIO [...] (test code = 2219) 22 U/L HEMOGLOBIN [id number] 00:00:00 Test Item Value Reference Range Interpretation Comments HEMOGLOBIN A1c (test code = 79259) 7.7 % HEMOGLOBIN [id number] 00:00:00 Test Item Value Reference Range Interpretation Comments HEMOGLOBIN A1c (test code = 87527) 7.7 % HEMOGLOBIN [id number] 00:00:00 Test Item Value Reference Range Interpretation Comments HEMOGLOBIN A1c (test code = 34538) 7.7 % CBC W/AUTO [id number] 00:00:00 Test Item Value Reference Range Interpretation [...] code = 1015) 224 K/UL CBC W/AUTO [id number] 00:00:00 Test Item Value Reference Range Interpretation [...] code = 1015) 224 K/UL CBC W/AUTO [id number] 00:00:00 Test Item Value Reference Range Interpretation [...] TSH (test code = 2821) <0.10 UIU/ML [id number] 00:00:00 Test Item Value Reference Range Interpretation Comments MAGNESIUM (test code = 2226) 1.4 MG/DL [id number] 00:00:00 Test Item Value Reference Range Interpretation Comments MAGNESIUM (test code = 2226) 1.4 MG/DL [id number] 00:00:00 Test Item Value Reference Range Interpretation Comments MAGNESIUM (test code = 2226) 1.4 MG/DL COMPREHENSIVE METABOLIC [id number] 00:00:00 Test Item Value Reference Range Interpretation Comments GLUCOSE (test code = 2217) 234 MG/DL BUN (test code = 2208) 17 MG/DL CREATININE (test code = 2214) 0.54 MG/DL eGFR AMER. (test code 139 ML/MIN/1.73 = 14847) eGFR NON- AMER. (test 120 ML/MIN/1.73 code = 11170) CALC BUN/CREAT (test code = 31 RATIO [...] code = 2219) 22 U/L COMPREHENSIVE METABOLIC [id number] 00:00:00 Test Item Value Reference Range Interpretation Comments GLUCOSE (test code = 2217) 234 MG/DL BUN (test code = 2208) 17 MG/DL CREATININE (test code = 2214) 0.54 MG/DL eGFR AMER. (test code 139 ML/MIN/1.73 = 73296) eGFR NON- AMER. (test 120 ML/MIN/1.73 code = 74178) CALC BUN/CREAT (test code = 31 RATIO [...] (test code = 2219) 22 U/L HEMOGLOBIN [id number] 00:00:00 Test Item Value Reference Range Interpretation Comments HEMOGLOBIN A1c (test code = 41620) 7.7 % HEMOGLOBIN [id number] 00:00:00 Test Item Value Reference Range Interpretation Comments HEMOGLOBIN A1c (test code = 71803) 7.7 % HEMOGLOBIN [id number] 00:00:00 Test Item Value Reference Range Interpretation Comments HEMOGLOBIN A1c (test code = 88298) 7.7 % CBC W/AUTO [id number] 00:00:00 Test Item Value Reference Range Interpretation [...] code = 1015) 224 K/UL CBC W/AUTO [id number] 00:00:00 Test Item Value Reference Range Interpretation [...] code = 1015) 224 K/UL CBC W/AUTO [id number] 00:00:00 Test Item Value Reference Range Interpretation [...] TSH (test code = 2821) <0.10 UIU/ML [id number] 00:00:00 Test Item Value Reference Range Interpretation Comments MAGNESIUM (test code = 2226) 1.4 MG/DL [id number] 00:00:00 Test Item Value Reference Range Interpretation Comments MAGNESIUM (test code = 2226) 1.4 MG/DL [id number] 00:00:00 Test Item Value Reference Range Interpretation Comments MAGNESIUM (test code = 2226) 1.4 MG/DL COMPREHENSIVE METABOLIC [id number] 00:00:00 Test Item Value Reference Range Interpretation Comments GLUCOSE (test code = 2217) 234 MG/DL BUN (test code = 2208) 17 MG/DL CREATININE (test code = 2214) 0.54 MG/DL eGFR AMER. (test code 139 ML/MIN/1.73 = 63988) eGFR NON- AMER. (test 120 ML/MIN/1.73 code = 07788) CALC BUN/CREAT (test code = 31 RATIO [...] code = 2219) 22 U/L COMPREHENSIVE METABOLIC [id number] 00:00:00 Test Item Value Reference Range Interpretation Comments GLUCOSE (test code = 2217) 234 MG/DL BUN (test code = 2208) 17 MG/DL CREATININE (test code = 2214) 0.54 MG/DL eGFR AMER. (test code 139 ML/MIN/1.73 = 45520) eGFR NON- AMER. (test 120 ML/MIN/1.73 code = 83460) CALC BUN/CREAT (test code = 31 RATIO [...] (test code = 2219) 22 U/L HEMOGLOBIN [id number] 00:00:00 Test Item Value Reference Range Interpretation Comments HEMOGLOBIN A1c (test code = 47425) 7.7 % HEMOGLOBIN [id number] 00:00:00 Test Item Value Reference Range Interpretation Comments HEMOGLOBIN A1c (test code = 45256) 7.7 % HEMOGLOBIN [id number] 00:00:00 Test Item Value Reference Range Interpretation Comments HEMOGLOBIN A1c (test code = 11048) 7.7 % CBC W/AUTO [id number] 00:00:00 Test Item Value Reference Range Interpretation [...] code = 1015) 224 K/UL CBC W/AUTO [id number] 00:00:00 Test Item Value Reference Range Interpretation [...] code = 1015) 224 K/UL CBC W/AUTO [id number] 00:00:00 Test Item Value Reference Range Interpretation [...] TSH (test code = 2821) <0.10 UIU/ML [id number] 00:00:00 Test Item Value Reference Range Interpretation Comments MAGNESIUM (test code = 2226) 1.4 MG/DL [id number] 00:00:00 Test Item Value Reference Range Interpretation Comments MAGNESIUM (test code = 2226) 1.4 MG/DL [id number] 00:00:00 Test Item Value Reference Range Interpretation Comments MAGNESIUM (test code = 2226) 1.4 MG/DL COMPREHENSIVE METABOLIC [id number] 00:00:00 Test Item Value Reference Range Interpretation Comments GLUCOSE (test code = 2217) 234 MG/DL BUN (test code = 2208) 17 MG/DL CREATININE (test code = 2214) 0.54 MG/DL eGFR AMER. (test code 139 ML/MIN/1.73 = 80250) eGFR NON- AMER. (test 120 ML/MIN/1.73 code = 66242) CALC BUN/CREAT (test code = 31 RATIO [...] code = 2219) 22 U/L COMPREHENSIVE METABOLIC [id number] 00:00:00 Test Item Value Reference Range Interpretation Comments GLUCOSE (test code = 2217) 234 MG/DL BUN (test code = 2208) 17 MG/DL CREATININE (test code = 2214) 0.54 MG/DL eGFR AMER. (test code 139 ML/MIN/1.73 = 27229) eGFR NON- AMER. (test 120 ML/MIN/1.73 code = 43063) CALC BUN/CREAT (test code = 31 RATIO [...] (test code = 2219) 22 U/L HEMOGLOBIN [id number] 00:00:00 Test Item Value Reference Range Interpretation Comments HEMOGLOBIN A1c (test code = 13839) 7.7 % HEMOGLOBIN [id number] 00:00:00 Test Item Value Reference Range Interpretation Comments HEMOGLOBIN A1c (test code = 70714) 7.7 % HEMOGLOBIN [id number] 00:00:00 Test Item Value Reference Range Interpretation Comments HEMOGLOBIN A1c (test code = 53947) 7.7 % CBC W/AUTO [id number] 00:00:00 Test Item Value Reference Range Interpretation [...] code = 1015) 224 K/UL CBC W/AUTO [id number] 00:00:00 Test Item Value Reference Range Interpretation [...] code = 1015) 224 K/UL CBC W/AUTO [id number] 00:00:00 Test Item Value Reference Range Interpretation [...] TSH (test code = 2821) <0.10 UIU/ML [id number] 00:00:00 Test Item Value Reference Range Interpretation Comments MAGNESIUM (test code = 2226) 1.4 MG/DL [id number] 00:00:00 Test Item Value Reference Range Interpretation Comments MAGNESIUM (test code = 2226) 1.4 MG/DL [id number] 00:00:00 Test Item Value Reference Range Interpretation Comments MAGNESIUM (test code = 2226) 1.4 MG/DL COMPREHENSIVE METABOLIC [id number] 00:00:00 Test Item Value Reference Range Interpretation Comments GLUCOSE (test code = 2217) 234 MG/DL BUN (test code = 2208) 17 MG/DL CREATININE (test code = 2214) 0.54 MG/DL eGFR AMER. (test code 139 ML/MIN/1.73 = 50521) eGFR NON- AMER. (test 120 ML/MIN/1.73 code = 61187) CALC BUN/CREAT (test code = 31 RATIO [...] code = 2219) 22 U/L COMPREHENSIVE METABOLIC [id number] 00:00:00 Test Item Value Reference Range Interpretation Comments GLUCOSE (test code = 2217) 234 MG/DL BUN (test code = 2208) 17 MG/DL CREATININE (test code = 2214) 0.54 MG/DL eGFR AMER. (test code 139 ML/MIN/1.73 = 44455) eGFR NON- AMER. (test 120 ML/MIN/1.73 code = 11007) CALC BUN/CREAT (test code = 31 RATIO [...] (test code = 2219) 22 U/L HEMOGLOBIN [id number] 00:00:00 Test Item Value Reference Range Interpretation Comments HEMOGLOBIN A1c (test code = 78185) 7.7 % HEMOGLOBIN [id number] 00:00:00 Test Item Value Reference Range Interpretation Comments HEMOGLOBIN A1c (test code = 18676) 7.7 % HEMOGLOBIN [id number] 00:00:00 Test Item Value Reference Range Interpretation Comments HEMOGLOBIN A1c (test code = 80739) 7.7 % CBC W/AUTO [id number] 00:00:00 Test Item Value Reference Range Interpretation [...] code = 1015) 224 K/UL CBC W/AUTO [id number] 00:00:00 Test Item Value Reference Range Interpretation [...] code = 1015) 224 K/UL CBC W/AUTO [id number] 00:00:00 Test Item Value Reference Range Interpretation [...] TSH (test code = 2821) <0.10 UIU/ML [id number] 00:00:00 Test Item Value Reference Range Interpretation Comments MAGNESIUM (test code = 2226) 1.4 MG/DL [id number] 00:00:00 Test Item Value Reference Range Interpretation Comments MAGNESIUM (test code = 2226) 1.4 MG/DL [id number] 00:00:00 Test Item Value Reference Range Interpretation Comments MAGNESIUM (test code = 2226) 1.4 MG/DL [id number] 00:00:00 Test Item Value Reference Range Interpretation Comments MAGNESIUM (test code = 2226) 1.4 MG/DL COMPREHENSIVE METABOLIC [id number] 00:00:00 Test Item Value Reference Range Interpretation Comments GLUCOSE (test code = 2217) 234 MG/DL BUN (test code = 2208) 17 MG/DL CREATININE (test code = 2214) 0.54 MG/DL eGFR AMER. (test code 139 ML/MIN/1.73 = 38448) eGFR NON- AMER. (test 120 ML/MIN/1.73 code = 78916) CALC BUN/CREAT (test code = 31 RATIO [...] code = 2219) 22 U/L COMPREHENSIVE METABOLIC [id number] 00:00:00 Test Item Value Reference Range Interpretation Comments GLUCOSE (test code = 2217) 234 MG/DL BUN (test code = 2208) 17 MG/DL CREATININE (test code = 2214) 0.54 MG/DL eGFR AMER. (test code 139 ML/MIN/1.73 = 64096) eGFR NON- AMER. (test 120 ML/MIN/1.73 code = 76226) CALC BUN/CREAT (test code = 31 RATIO [...] (test code = 2219) 22 U/L HEMOGLOBIN [id number] 00:00:00 Test Item Value Reference Range Interpretation Comments HEMOGLOBIN A1c (test code = 23655) 7.7 % HEMOGLOBIN [id number] 00:00:00 Test Item Value Reference Range Interpretation Comments HEMOGLOBIN A1c (test code = 86065) 7.7 % HEMOGLOBIN [id number] 00:00:00 Test Item Value Reference Range Interpretation Comments HEMOGLOBIN A1c (test code = 79062) 7.7 % [id number] 00:00:00 Test Item Value Reference Range Interpretation Comments MAGNESIUM (test code = 2226) 1.4 MG/DL CBC W/AUTO [id number] 00:00:00 Test Item Value Reference Range Interpretation [...] code = 1015) 224 K/UL CBC W/AUTO [id number] 00:00:00 Test Item Value Reference Range Interpretation [...] code = 1015) 224 K/UL CBC W/AUTO [id number] 00:00:00 Test Item Value Reference Range Interpretation [...] code = 2821) <0.10 UIU/ML COMPREHENSIVE METABOLIC [id number] 00:00:00 Test Item Value Reference Range Interpretation Comments GLUCOSE (test code = 2217) 234 MG/DL BUN (test code = 2208) 17 MG/DL CREATININE (test code = 2214) 0.54 MG/DL eGFR AMER. (test code 139 ML/MIN/1.73 = 79011) eGFR NON- AMER. (test 120 ML/MIN/1.73 code = 54572) CALC BUN/CREAT (test code = 31 RATIO [...] (test code = 2219) 22 U/L HEMOGLOBIN [id number] 00:00:00 Test Item Value Reference Range Interpretation Comments HEMOGLOBIN A1c (test code = 18155) 7.7 % HEMOGLOBIN [id number] 00:00:00 Test Item Value Reference Range Interpretation Comments HEMOGLOBIN A1c (test code = 96285) 7.7 % [id number] 00:00:00 Test Item Value Reference Range Interpretation Comments MAGNESIUM (test code = 2226) 1.4 MG/DL [id number] 00:00:00 Test Item Value Reference Range Interpretation Comments MAGNESIUM (test code = 2226) 1.4 MG/DL [id number] 00:00:00 Test Item Value Reference Range Interpretation Comments MAGNESIUM (test code = 2226) 1.4 MG/DL CBC W/AUTO [id number] 00:00:00 Test Item Value Reference Range Interpretation [...] code = 1015) 224 K/UL COMPREHENSIVE METABOLIC [id number] 00:00:00 Test Item Value Reference Range Interpretation Comments GLUCOSE (test code = 2217) 234 MG/DL BUN (test code = 2208) 17 MG/DL CREATININE (test code = 2214) 0.54 MG/DL eGFR AMER. (test code 139 ML/MIN/1.73 = 83879) eGFR NON- AMER. (test 120 ML/MIN/1.73 code = 95908) CALC BUN/CREAT (test code = 31 RATIO [...] code = 2219) 22 U/L CBC W/AUTO [id number] 00:00:00 Test Item Value Reference Range Interpretation [...] code = 1015) 224 K/UL COMPREHENSIVE METABOLIC [id number] 00:00:00 Test Item Value Reference Range Interpretation Comments GLUCOSE (test code = 2217) 234 MG/DL BUN (test code = 2208) 17 MG/DL CREATININE (test code = 2214) 0.54 MG/DL eGFR AMER. (test code 139 ML/MIN/1.73 = 35582) eGFR NON- AMER. (test 120 ML/MIN/1.73 code = 14822) CALC BUN/CREAT (test code = 31 RATIO [...] (test code = 2219) 22 U/L HEMOGLOBIN [id number] 00:00:00 Test Item Value Reference Range Interpretation Comments HEMOGLOBIN A1c (test code = 58433) 7.7 % HEMOGLOBIN [id number] 00:00:00 Test Item Value Reference Range Interpretation Comments HEMOGLOBIN A1c (test code = 72239) 7.7 % HEMOGLOBIN [id number] 00:00:00 Test Item Value Reference Range Interpretation Comments HEMOGLOBIN A1c (test code = 25834) 7.7 % THYROID II PROFILE (T3U, T4, T7, TSH)[id number] 00:00:00 Test Item Value Reference Range Interpretation Comments T3 UPTAKE (test code = 2817) 24.7 % T4 (THYROXINE) (test code = 3.7 UG/DL 2818) CALCULATED T7 (FTI) (test code = 0.91 2820) TSH (test code = 2821) <0.10 UIU/ML CBC W/AUTO [id number] 00:00:00 Test Item Value Reference Range Interpretation [...] code = 1015) 224 K/UL CBC W/AUTO [id number] 00:00:00 Test Item Value Reference Range Interpretation [...] code = 1015) 224 K/UL CBC W/AUTO [id number] 00:00:00 Test Item Value Reference Range Interpretation [...] TSH (test code = 2821) <0.10 UIU/ML [id number] 00:00:00 Test Item Value Reference Range Interpretation Comments MAGNESIUM (test code = 2226) 1.4 MG/DL [id number] 00:00:00 Test Item Value Reference Range Interpretation Comments MAGNESIUM (test code = 2226) 1.4 MG/DL [id number] 00:00:00 Test Item Value Reference Range Interpretation Comments MAGNESIUM (test code = 2226) 1.4 MG/DL COMPREHENSIVE METABOLIC [id number] 00:00:00 Test Item Value Reference Range Interpretation Comments GLUCOSE (test code = 2217) 234 MG/DL BUN (test code = 2208) 17 MG/DL CREATININE (test code = 2214) 0.54 MG/DL eGFR AMER. (test code 139 ML/MIN/1.73 = 10942) eGFR NON- AMER. (test 120 ML/MIN/1.73 code = 17291) CALC BUN/CREAT (test code = 31 RATIO [...] code = 2219) 22 U/L COMPREHENSIVE METABOLIC [id number] 00:00:00 Test Item Value Reference Range Interpretation Comments GLUCOSE (test code = 2217) 234 MG/DL BUN (test code = 2208) 17 MG/DL CREATININE (test code = 2214) 0.54 MG/DL eGFR AMER. (test code 139 ML/MIN/1.73 = 96492) eGFR NON- AMER. (test 120 ML/MIN/1.73 code = 34818) CALC BUN/CREAT (test code = 31 RATIO [...] (test code = 2219) 22 U/L HEMOGLOBIN [id number] 00:00:00 Test Item Value Reference Range Interpretation Comments HEMOGLOBIN A1c (test code = 85317) 7.7 % HEMOGLOBIN [id number] 00:00:00 Test Item Value Reference Range Interpretation Comments HEMOGLOBIN A1c (test code = 15165) 7.7 % HEMOGLOBIN [id number] 00:00:00 Test Item Value Reference Range Interpretation Comments HEMOGLOBIN A1c (test code = 84023) 7.7 % CBC W/AUTO [id number] 00:00:00 Test Item Value Reference Range Interpretation [...] code = 1015) 224 K/UL CBC W/AUTO [id number] 00:00:00 Test Item Value Reference Range Interpretation [...] code = 1015) 224 K/UL CBC W/AUTO [id number] 00:00:00 Test Item Value Reference Range Interpretation [...] TSH (test code = 2821) <0.10 UIU/ML [id number] 00:00:00 Test Item Value Reference Range Interpretation Comments MAGNESIUM (test code = 2226) 1.4 MG/DL [id number] 00:00:00 Test Item Value Reference Range Interpretation Comments MAGNESIUM (test code = 2226) 1.4 MG/DL [id number] 00:00:00 Test Item Value Reference Range Interpretation Comments MAGNESIUM (test code = 2226) 1.4 MG/DL COMPREHENSIVE METABOLIC [id number] 00:00:00 Test Item Value Reference Range Interpretation Comments GLUCOSE (test code = 2217) 234 MG/DL BUN (test code = 2208) 17 MG/DL CREATININE (test code = 2214) 0.54 MG/DL eGFR AMER. (test code 139 ML/MIN/1.73 = 70158) eGFR NON- AMER. (test 120 ML/MIN/1.73 code = 31788) CALC BUN/CREAT (test code = 31 RATIO [...] code = 2219) 22 U/L COMPREHENSIVE METABOLIC [id number] 00:00:00 Test Item Value Reference Range Interpretation Comments GLUCOSE (test code = 2217) 234 MG/DL BUN (test code = 2208) 17 MG/DL CREATININE (test code = 2214) 0.54 MG/DL eGFR AMER. (test code 139 ML/MIN/1.73 = 90364) eGFR NON- AMER. (test 120 ML/MIN/1.73 code = 84643) CALC BUN/CREAT (test code = 31 RATIO [...] (test code = 2219) 22 U/L HEMOGLOBIN [id number] 00:00:00 Test Item Value Reference Range Interpretation Comments HEMOGLOBIN A1c (test code = 17991) 7.7 % HEMOGLOBIN [id number] 00:00:00 Test Item Value Reference Range Interpretation Comments HEMOGLOBIN A1c (test code = 87254) 7.7 % HEMOGLOBIN [id number] 00:00:00 Test Item Value Reference Range Interpretation Comments HEMOGLOBIN A1c (test code = 10028) 7.7 % CBC W/AUTO [id number] 00:00:00 Test Item Value Reference Range Interpretation [...] code = 1015) 224 K/UL CBC W/AUTO [id number] 00:00:00 Test Item Value Reference Range Interpretation [...] code = 1015) 224 K/UL CBC W/AUTO [id number] 00:00:00 Test Item Value Reference Range Interpretation [...] <0.10 UIU/ML MARKO (ANTI-NUCLEAR AB) WITH REFLEX [id number] 00:00:00 Test Item Value Reference Range Interpretation Comments ANTI-NUCLEAR ANTIBODIES (test code = NEGATIVE 3506) MARKO (ANTI-NUCLEAR AB) WITH REFLEX [id number] 00:00:00 Test Item Value Reference Range Interpretation Comments ANTI-NUCLEAR ANTIBODIES (test code = NEGATIVE 3506) DHEA [id number] 00:00:00 Test Item Value Reference Range Interpretation Comments DHEA SULFATE (test code = 4225) 77 UG/DL DHEA [id number] 00:00:00 Test Item Value Reference Range Interpretation Comments DHEA SULFATE (test code = 4225) 77 UG/DL MARKO (ANTI-NUCLEAR AB) WITH REFLEX [id number] 00:00:00 Test Item Value Reference Range Interpretation Comments ANTI-NUCLEAR ANTIBODIES (test code = NEGATIVE 3506) MARKO (ANTI-NUCLEAR AB) WITH REFLEX [id number] 00:00:00 Test Item Value Reference Range Interpretation Comments ANTI-NUCLEAR ANTIBODIES (test code = NEGATIVE 3506) DHEA [id number] 00:00:00 Test Item Value Reference Range Interpretation Comments DHEA SULFATE (test code = 4225) 77 UG/DL DHEA [id number] 00:00:00 Test Item Value Reference Range Interpretation Comments DHEA SULFATE (test code = 4225) 77 UG/DL MARKO (ANTI-NUCLEAR AB) WITH REFLEX [id number] 00:00:00 Test Item Value Reference Range Interpretation Comments ANTI-NUCLEAR ANTIBODIES (test code = NEGATIVE 3506) MARKO (ANTI-NUCLEAR AB) WITH REFLEX [id number] 00:00:00 Test Item Value Reference Range Interpretation Comments ANTI-NUCLEAR ANTIBODIES (test code = NEGATIVE 3506) DHEA [id number] 00:00:00 Test Item Value Reference Range Interpretation Comments DHEA SULFATE (test code = 4225) 77 UG/DL DHEA [id number] 00:00:00 Test Item Value Reference Range Interpretation Comments DHEA SULFATE (test code = 4225) 77 UG/DL MARKO (ANTI-NUCLEAR AB) WITH REFLEX [id number] 00:00:00 Test Item Value Reference Range Interpretation Comments ANTI-NUCLEAR ANTIBODIES (test code = NEGATIVE 3506) MAROK (ANTI-NUCLEAR AB) WITH REFLEX [id number] 00:00:00 Test Item Value Reference Range Interpretation Comments ANTI-NUCLEAR ANTIBODIES (test code = NEGATIVE 3506) DHEA [id number] 00:00:00 Test Item Value Reference Range Interpretation Comments DHEA SULFATE (test code = 4225) 77 UG/DL DHEA [id number] 00:00:00 Test Item Value Reference Range Interpretation Comments DHEA SULFATE (test code = 4225) 77 UG/DL MARKO (ANTI-NUCLEAR AB) WITH REFLEX [id number] 00:00:00 Test Item Value Reference Range Interpretation Comments ANTI-NUCLEAR ANTIBODIES (test code = NEGATIVE 3506) MARKO (ANTI-NUCLEAR AB) WITH REFLEX [id number] 00:00:00 Test Item Value Reference Range Interpretation Comments ANTI-NUCLEAR ANTIBODIES (test code = NEGATIVE 3506) DHEA [id number] 00:00:00 Test Item Value Reference Range Interpretation Comments DHEA SULFATE (test code = 4225) 77 UG/DL DHEA [id number] 00:00:00 Test Item Value Reference Range Interpretation Comments DHEA SULFATE (test code = 4225) 77 UG/DL MARKO (ANTI-NUCLEAR AB) WITH REFLEX [id number] 00:00:00 Test Item Value Reference Range Interpretation Comments ANTI-NUCLEAR ANTIBODIES (test code = NEGATIVE 3506) MARKO (ANTI-NUCLEAR AB) WITH REFLEX [id number] 00:00:00 Test Item Value Reference Range Interpretation Comments ANTI-NUCLEAR ANTIBODIES (test code = NEGATIVE 3506) DHEA [id number] 00:00:00 Test Item Value Reference Range Interpretation Comments DHEA SULFATE (test code = 4225) 77 UG/DL DHEA [id number] 00:00:00 Test Item Value Reference Range Interpretation Comments DHEA SULFATE (test code = 4225) 77 UG/DL MARKO (ANTI-NUCLEAR AB) WITH REFLEX [id number] 00:00:00 Test Item Value Reference Range Interpretation Comments ANTI-NUCLEAR ANTIBODIES (test code = NEGATIVE 3506) MARKO (ANTI-NUCLEAR AB) WITH REFLEX [id number] 00:00:00 Test Item Value Reference Range Interpretation Comments ANTI-NUCLEAR ANTIBODIES (test code = NEGATIVE 3506) DHEA [id number] 00:00:00 Test Item Value Reference Range Interpretation Comments DHEA SULFATE (test code = 4225) 77 UG/DL DHEA [id number] 00:00:00 Test Item Value Reference Range Interpretation Comments DHEA SULFATE (test code = 4225) 77 UG/DL MARKO (ANTI-NUCLEAR AB) WITH REFLEX [id number] 00:00:00 Test Item Value Reference Range Interpretation Comments ANTI-NUCLEAR ANTIBODIES (test code = NEGATIVE 3506) MARKO (ANTI-NUCLEAR AB) WITH REFLEX [id number] 00:00:00 Test Item Value Reference Range Interpretation Comments ANTI-NUCLEAR ANTIBODIES (test code = NEGATIVE 3506) MARKO (ANTI-NUCLEAR AB) WITH REFLEX [id number] 00:00:00 Test Item Value Reference Range Interpretation Comments ANTI-NUCLEAR ANTIBODIES (test code = NEGATIVE 3506) DHEA [id number] 00:00:00 Test Item Value Reference Range Interpretation Comments DHEA SULFATE (test code = 4225) 77 UG/DL DHEA [id number] 00:00:00 Test Item Value Reference Range Interpretation Comments DHEA SULFATE (test code = 4225) 77 UG/DL DHEA [id number] 00:00:00 Test Item Value Reference Range Interpretation Comments DHEA SULFATE (test code = 4225) 77 UG/DL MARKO (ANTI-NUCLEAR AB) WITH REFLEX [id number] 00:00:00 Test Item Value Reference Range Interpretation Comments ANTI-NUCLEAR ANTIBODIES (test code = NEGATIVE 3506) MARKO (ANTI-NUCLEAR AB) WITH REFLEX [id number] 00:00:00 Test Item Value Reference Range Interpretation Comments ANTI-NUCLEAR ANTIBODIES (test code = NEGATIVE 3506) DHEA [id number] 00:00:00 Test Item Value Reference Range Interpretation Comments DHEA SULFATE (test code = 4225) 77 UG/DL DHEA [id number] 00:00:00 Test Item Value Reference Range Interpretation Comments DHEA SULFATE (test code = 4225) 77 UG/DL MARKO (ANTI-NUCLEAR AB) WITH REFLEX [id number] 00:00:00 Test Item Value Reference Range Interpretation Comments ANTI-NUCLEAR ANTIBODIES (test code = NEGATIVE 3506) MARKO (ANTI-NUCLEAR AB) WITH REFLEX [id number] 00:00:00 Test Item Value Reference Range Interpretation Comments ANTI-NUCLEAR ANTIBODIES (test code = NEGATIVE 3506) DHEA [id number] 00:00:00 Test Item Value Reference Range Interpretation Comments DHEA SULFATE (test code = 4225) 77 UG/DL DHEA [id number] 00:00:00 Test Item Value Reference Range Interpretation Comments DHEA SULFATE (test code = 4225) 77 UG/DL VITAMIN D,1,01-[id number] 00:00:00 Test Item Value Reference Range Interpretation Comments VITAMIN D,1,25-DIHYDROXY (test 11.3 PG/ML code = 4960) VITAMIN D,1,44-[id number] 00:00:00 Test Item Value Reference Range Interpretation Comments VITAMIN D,1,25-DIHYDROXY (test 11.3 PG/ML code = 4960) VITAMIN B 12 AND FOLIC [id number] 00:00:00 Test Item Value Reference Range Interpretation Comments VITAMIN B-12 (test code = 2840) 925 PG/ML FOLIC ACID (test code = 2695) >24.0 NG/ML VITAMIN B 12 AND FOLIC [id number] 00:00:00 Test Item Value Reference Range Interpretation [...] (test code = 2821) 0.4 UIU/ML LIPID [id number] 00:00:00 Test Item Value Reference Range Interpretation Comments CHOLESTEROL (test code = 2210) 172 MG/DL TRIGLYCERIDES (test code = 2232) 136 MG/DL HDL CHOLESTEROL (test code = 2220) 44 MG/DL CALC LDL CHOL (test code = 2237) 101 MG/DL RISK RATIO LDL/HDL (test code = 2.29 RATIO 2238) LIPID [id number] 00:00:00 Test Item Value Reference Range Interpretation Comments CHOLESTEROL (test code = 2210) 172 MG/DL TRIGLYCERIDES (test code = 2232) 136 MG/DL HDL CHOLESTEROL (test code = 2220) 44 MG/DL CALC LDL CHOL (test code = 2237) 101 MG/DL RISK RATIO LDL/HDL (test code = 2.29 RATIO 2238) [id number] 00:00:00 Test Item Value Reference Range Interpretation Comments TESTOSTERONE (test code = 2830) <12 NG/DL TESTOSTERONE REF RANGE (test code = (NOTE) 26699) [id number] 00:00:00 Test Item Value Reference Range Interpretation Comments TESTOSTERONE (test code = 2830) <12 NG/DL TESTOSTERONE REF RANGE (test code = (NOTE) 61564) [id number] 00:00:00 Test Item Value Reference Range Interpretation Comments PROLACTIN (test code = 2800) 5.8 NG/ML [id number] 00:00:00 Test Item Value Reference Range Interpretation Comments PROLACTIN (test code = 2800) 5.8 NG/ML FSH + LH [id number] 00:00:00 Test Item Value Reference Range Interpretation Comments FOLLICLE STIM HORMONE (test code = 8.9 MIU/ML 2700) LUTEINIZING HORMONE (test code = 6.5 MIU/ML 2776) FSH + LH [id number] 00:00:00 Test Item Value Reference Range Interpretation Comments FOLLICLE STIM HORMONE (test code = 8.9 MIU/ML 2700) LUTEINIZING HORMONE (test code = 6.5 MIU/ML 2776) VITAMIN D,1,38-[id number] 00:00:00 Test Item Value Reference Range Interpretation Comments VITAMIN D,1,25-DIHYDROXY (test 11.3 PG/ML code = 4960) VITAMIN D,1,02-[id number] 00:00:00 Test Item Value Reference Range Interpretation Comments VITAMIN D,1,25-DIHYDROXY (test 11.3 PG/ML code = 4960) VITAMIN B 12 AND FOLIC [id number] 00:00:00 Test Item Value Reference Range Interpretation Comments VITAMIN B-12 (test code = 2840) 925 PG/ML FOLIC ACID (test code = 2695) >24.0 NG/ML VITAMIN B 12 AND FOLIC [id number] 00:00:00 Test Item Value Reference Range Interpretation [...] (test code = 2821) 0.4 UIU/ML LIPID [id number] 00:00:00 Test Item Value Reference Range Interpretation Comments CHOLESTEROL (test code = 2210) 172 MG/DL TRIGLYCERIDES (test code = 2232) 136 MG/DL HDL CHOLESTEROL (test code = 2220) 44 MG/DL CALC LDL CHOL (test code = 2237) 101 MG/DL RISK RATIO LDL/HDL (test code = 2.29 RATIO 2238) LIPID [id number] 00:00:00 Test Item Value Reference Range Interpretation Comments CHOLESTEROL (test code = 2210) 172 MG/DL TRIGLYCERIDES (test code = 2232) 136 MG/DL HDL CHOLESTEROL (test code = 2220) 44 MG/DL CALC LDL CHOL (test code = 2237) 101 MG/DL RISK RATIO LDL/HDL (test code = 2.29 RATIO 2238) [id number] 00:00:00 Test Item Value Reference Range Interpretation Comments TESTOSTERONE (test code = 2830) <12 NG/DL TESTOSTERONE REF RANGE (test code = (NOTE) 49928) [id number] 00:00:00 Test Item Value Reference Range Interpretation Comments TESTOSTERONE (test code = 2830) <12 NG/DL TESTOSTERONE REF RANGE (test code = (NOTE) 64379) [id number] 00:00:00 Test Item Value Reference Range Interpretation Comments PROLACTIN (test code = 2800) 5.8 NG/ML [id number] 00:00:00 Test Item Value Reference Range Interpretation Comments PROLACTIN (test code = 2800) 5.8 NG/ML FSH + LH [id number] 00:00:00 Test Item Value Reference Range Interpretation Comments FOLLICLE STIM HORMONE (test code = 8.9 MIU/ML 2700) LUTEINIZING HORMONE (test code = 6.5 MIU/ML 2776) FSH + LH [id number] 00:00:00 Test Item Value Reference Range Interpretation Comments FOLLICLE STIM HORMONE (test code = 8.9 MIU/ML 2700) LUTEINIZING HORMONE (test code = 6.5 MIU/ML 2776) VITAMIN D,1,89-[id number] 00:00:00 Test Item Value Reference Range Interpretation Comments VITAMIN D,1,25-DIHYDROXY (test 11.3 PG/ML code = 4960) VITAMIN D,1,70-[id number] 00:00:00 Test Item Value Reference Range Interpretation Comments VITAMIN D,1,25-DIHYDROXY (test 11.3 PG/ML code = 4960) VITAMIN B 12 AND FOLIC [id number] 00:00:00 Test Item Value Reference Range Interpretation Comments VITAMIN B-12 (test code = 2840) 925 PG/ML FOLIC ACID (test code = 2695) >24.0 NG/ML VITAMIN B 12 AND FOLIC [id number] 00:00:00 Test Item Value Reference Range Interpretation [...] (test code = 2821) 0.4 UIU/ML LIPID [id number] 00:00:00 Test Item Value Reference Range Interpretation Comments CHOLESTEROL (test code = 2210) 172 MG/DL TRIGLYCERIDES (test code = 2232) 136 MG/DL HDL CHOLESTEROL (test code = 2220) 44 MG/DL CALC LDL CHOL (test code = 2237) 101 MG/DL RISK RATIO LDL/HDL (test code = 2.29 RATIO 2238) LIPID [id number] 00:00:00 Test Item Value Reference Range Interpretation Comments CHOLESTEROL (test code = 2210) 172 MG/DL TRIGLYCERIDES (test code = 2232) 136 MG/DL HDL CHOLESTEROL (test code = 2220) 44 MG/DL CALC LDL CHOL (test code = 2237) 101 MG/DL RISK RATIO LDL/HDL (test code = 2.29 RATIO 2238) [id number] 00:00:00 Test Item Value Reference Range Interpretation Comments TESTOSTERONE (test code = 2830) <12 NG/DL TESTOSTERONE REF RANGE (test code = (NOTE) 19418) [id number] 00:00:00 Test Item Value Reference Range Interpretation Comments TESTOSTERONE (test code = 2830) <12 NG/DL TESTOSTERONE REF RANGE (test code = (NOTE) 00276) [id number] 00:00:00 Test Item Value Reference Range Interpretation Comments PROLACTIN (test code = 2800) 5.8 NG/ML [id number] 00:00:00 Test Item Value Reference Range Interpretation Comments PROLACTIN (test code = 2800) 5.8 NG/ML FSH + LH [id number] 00:00:00 Test Item Value Reference Range Interpretation Comments FOLLICLE STIM HORMONE (test code = 8.9 MIU/ML 2700) LUTEINIZING HORMONE (test code = 6.5 MIU/ML 2776) FSH + LH [id number] 00:00:00 Test Item Value Reference Range Interpretation Comments FOLLICLE STIM HORMONE (test code = 8.9 MIU/ML 2700) LUTEINIZING HORMONE (test code = 6.5 MIU/ML 2776) VITAMIN D,1,15-[id number] 00:00:00 Test Item Value Reference Range Interpretation Comments VITAMIN D,1,25-DIHYDROXY (test 11.3 PG/ML code = 4960) VITAMIN D,1,53-[id number] 00:00:00 Test Item Value Reference Range Interpretation Comments VITAMIN D,1,25-DIHYDROXY (test 11.3 PG/ML code = 4960) VITAMIN B 12 AND FOLIC [id number] 00:00:00 Test Item Value Reference Range Interpretation Comments VITAMIN B-12 (test code = 2840) 925 PG/ML FOLIC ACID (test code = 2695) >24.0 NG/ML VITAMIN B 12 AND FOLIC [id number] 00:00:00 Test Item Value Reference Range Interpretation [...] (test code = 2821) 0.4 UIU/ML LIPID [id number] 00:00:00 Test Item Value Reference Range Interpretation Comments CHOLESTEROL (test code = 2210) 172 MG/DL TRIGLYCERIDES (test code = 2232) 136 MG/DL HDL CHOLESTEROL (test code = 2220) 44 MG/DL CALC LDL CHOL (test code = 2237) 101 MG/DL RISK RATIO LDL/HDL (test code = 2.29 RATIO 2238) LIPID [id number] 00:00:00 Test Item Value Reference Range Interpretation Comments CHOLESTEROL (test code = 2210) 172 MG/DL TRIGLYCERIDES (test code = 2232) 136 MG/DL HDL CHOLESTEROL (test code = 2220) 44 MG/DL CALC LDL CHOL (test code = 2237) 101 MG/DL RISK RATIO LDL/HDL (test code = 2.29 RATIO 2238) [id number] 00:00:00 Test Item Value Reference Range Interpretation Comments TESTOSTERONE (test code = 2830) <12 NG/DL TESTOSTERONE REF RANGE (test code = (NOTE) 46943) [id number] 00:00:00 Test Item Value Reference Range Interpretation Comments TESTOSTERONE (test code = 2830) <12 NG/DL TESTOSTERONE REF RANGE (test code = (NOTE) 15004) [id number] 00:00:00 Test Item Value Reference Range Interpretation Comments PROLACTIN (test code = 2800) 5.8 NG/ML [id number] 00:00:00 Test Item Value Reference Range Interpretation Comments PROLACTIN (test code = 2800) 5.8 NG/ML FSH + LH [id number] 00:00:00 Test Item Value Reference Range Interpretation Comments FOLLICLE STIM HORMONE (test code = 8.9 MIU/ML 2700) LUTEINIZING HORMONE (test code = 6.5 MIU/ML 2776) FSH + LH [id number] 00:00:00 Test Item Value Reference Range Interpretation Comments FOLLICLE STIM HORMONE (test code = 8.9 MIU/ML 2700) LUTEINIZING HORMONE (test code = 6.5 MIU/ML 2776) VITAMIN D,1,76-[id number] 00:00:00 Test Item Value Reference Range Interpretation Comments VITAMIN D,1,25-DIHYDROXY (test 11.3 PG/ML code = 4960) VITAMIN D,1,05-[id number] 00:00:00 Test Item Value Reference Range Interpretation Comments VITAMIN D,1,25-DIHYDROXY (test 11.3 PG/ML code = 4960) VITAMIN B 12 AND FOLIC [id number] 00:00:00 Test Item Value Reference Range Interpretation Comments VITAMIN B-12 (test code = 2840) 925 PG/ML FOLIC ACID (test code = 2695) >24.0 NG/ML VITAMIN B 12 AND FOLIC [id number] 00:00:00 Test Item Value Reference Range Interpretation [...] (test code = 2821) 0.4 UIU/ML LIPID [id number] 00:00:00 Test Item Value Reference Range Interpretation Comments CHOLESTEROL (test code = 2210) 172 MG/DL TRIGLYCERIDES (test code = 2232) 136 MG/DL HDL CHOLESTEROL (test code = 2220) 44 MG/DL CALC LDL CHOL (test code = 2237) 101 MG/DL RISK RATIO LDL/HDL (test code = 2.29 RATIO 2238) LIPID [id number] 00:00:00 Test Item Value Reference Range Interpretation Comments CHOLESTEROL (test code = 2210) 172 MG/DL TRIGLYCERIDES (test code = 2232) 136 MG/DL HDL CHOLESTEROL (test code = 2220) 44 MG/DL CALC LDL CHOL (test code = 2237) 101 MG/DL RISK RATIO LDL/HDL (test code = 2.29 RATIO 2238) [id number] 00:00:00 Test Item Value Reference Range Interpretation Comments TESTOSTERONE (test code = 2830) <12 NG/DL TESTOSTERONE REF RANGE (test code = (NOTE) 57808) [id number] 00:00:00 Test Item Value Reference Range Interpretation Comments TESTOSTERONE (test code = 2830) <12 NG/DL TESTOSTERONE REF RANGE (test code = (NOTE) 15265) [id number] 00:00:00 Test Item Value Reference Range Interpretation Comments PROLACTIN (test code = 2800) 5.8 NG/ML [id number] 00:00:00 Test Item Value Reference Range Interpretation Comments PROLACTIN (test code = 2800) 5.8 NG/ML FSH + LH [id number] 00:00:00 Test Item Value Reference Range Interpretation Comments FOLLICLE STIM HORMONE (test code = 8.9 MIU/ML 2700) LUTEINIZING HORMONE (test code = 6.5 MIU/ML 2776) FSH + LH [id number] 00:00:00 Test Item Value Reference Range Interpretation Comments FOLLICLE STIM HORMONE (test code = 8.9 MIU/ML 2700) LUTEINIZING HORMONE (test code = 6.5 MIU/ML 2776) VITAMIN D,1,32-[id number] 00:00:00 Test Item Value Reference Range Interpretation Comments VITAMIN D,1,25-DIHYDROXY (test 11.3 PG/ML code = 4960) VITAMIN D,1,43-[id number] 00:00:00 Test Item Value Reference Range Interpretation Comments VITAMIN D,1,25-DIHYDROXY (test 11.3 PG/ML code = 4960) VITAMIN B 12 AND FOLIC [id number] 00:00:00 Test Item Value Reference Range Interpretation Comments VITAMIN B-12 (test code = 2840) 925 PG/ML FOLIC ACID (test code = 2695) >24.0 NG/ML VITAMIN B 12 AND FOLIC [id number] 00:00:00 Test Item Value Reference Range Interpretation [...] (test code = 2821) 0.4 UIU/ML LIPID [id number] 00:00:00 Test Item Value Reference Range Interpretation Comments CHOLESTEROL (test code = 2210) 172 MG/DL TRIGLYCERIDES (test code = 2232) 136 MG/DL HDL CHOLESTEROL (test code = 2220) 44 MG/DL CALC LDL CHOL (test code = 2237) 101 MG/DL RISK RATIO LDL/HDL (test code = 2.29 RATIO 2238) LIPID [id number] 00:00:00 Test Item Value Reference Range Interpretation Comments CHOLESTEROL (test code = 2210) 172 MG/DL TRIGLYCERIDES (test code = 2232) 136 MG/DL HDL CHOLESTEROL (test code = 2220) 44 MG/DL CALC LDL CHOL (test code = 2237) 101 MG/DL RISK RATIO LDL/HDL (test code = 2.29 RATIO 2238) [id number] 00:00:00 Test Item Value Reference Range Interpretation Comments TESTOSTERONE (test code = 2830) <12 NG/DL TESTOSTERONE REF RANGE (test code = (NOTE) 39046) [id number] 00:00:00 Test Item Value Reference Range Interpretation Comments TESTOSTERONE (test code = 2830) <12 NG/DL TESTOSTERONE REF RANGE (test code = (NOTE) 07687) [id number] 00:00:00 Test Item Value Reference Range Interpretation Comments PROLACTIN (test code = 2800) 5.8 NG/ML [id number] 00:00:00 Test Item Value Reference Range Interpretation Comments PROLACTIN (test code = 2800) 5.8 NG/ML [facility] + LH [id number] 00:00:00 Test Item Value Reference Range Interpretation Comments FOLLICLE STIM HORMONE (test code = 8.9 MIU/ML 2700) LUTEINIZING HORMONE (test code = 6.5 MIU/ML 2776) FSH + LH [id number] 00:00:00 Test Item Value Reference Range Interpretation Comments FOLLICLE STIM HORMONE (test code = 8.9 MIU/ML 2700) LUTEINIZING HORMONE (test code = 6.5 MIU/ML 2776) VITAMIN D,1,51-[id number] 00:00:00 Test Item Value Reference Range Interpretation Comments VITAMIN D,1,25-DIHYDROXY (test 11.3 PG/ML code = 4960) VITAMIN D,1,75-[id number] 00:00:00 Test Item Value Reference Range Interpretation Comments VITAMIN D,1,25-DIHYDROXY (test 11.3 PG/ML code = 4960) VITAMIN B 12 AND FOLIC [id number] 00:00:00 Test Item Value Reference Range Interpretation Comments VITAMIN B-12 (test code = 2840) 925 PG/ML FOLIC ACID (test code = 2695) >24.0 NG/ML VITAMIN B 12 AND FOLIC [id number] 00:00:00 Test Item Value Reference Range Interpretation [...] (test code = 2821) 0.4 UIU/ML LIPID [id number] 00:00:00 Test Item Value Reference Range Interpretation Comments CHOLESTEROL (test code = 2210) 172 MG/DL TRIGLYCERIDES (test code = 2232) 136 MG/DL HDL CHOLESTEROL (test code = 2220) 44 MG/DL CALC LDL CHOL (test code = 2237) 101 MG/DL RISK RATIO LDL/HDL (test code = 2.29 RATIO 2238) LIPID [id number] 00:00:00 Test Item Value Reference Range Interpretation Comments CHOLESTEROL (test code = 2210) 172 MG/DL TRIGLYCERIDES (test code = 2232) 136 MG/DL HDL CHOLESTEROL (test code = 2220) 44 MG/DL CALC LDL CHOL (test code = 2237) 101 MG/DL RISK RATIO LDL/HDL (test code = 2.29 RATIO 2238) [id number] 00:00:00 Test Item Value Reference Range Interpretation Comments TESTOSTERONE (test code = 2830) <12 NG/DL TESTOSTERONE REF RANGE (test code = (NOTE) 35757) [id number] 00:00:00 Test Item Value Reference Range Interpretation Comments TESTOSTERONE (test code = 2830) <12 NG/DL TESTOSTERONE REF RANGE (test code = (NOTE) 94865) [id number] 00:00:00 Test Item Value Reference Range Interpretation Comments PROLACTIN (test code = 2800) 5.8 NG/ML [id number] 00:00:00 Test Item Value Reference Range Interpretation Comments PROLACTIN (test code = 2800) 5.8 NG/ML FSH + LH [id number] 00:00:00 Test Item Value Reference Range Interpretation Comments FOLLICLE STIM HORMONE (test code = 8.9 MIU/ML 2700) LUTEINIZING HORMONE (test code = 6.5 MIU/ML 2776) FSH + LH [id number] 00:00:00 Test Item Value Reference Range Interpretation Comments FOLLICLE STIM HORMONE (test code = 8.9 MIU/ML 2700) LUTEINIZING HORMONE (test code = 6.5 MIU/ML 2776) VITAMIN D,1,61-[id number] 00:00:00 Test Item Value Reference Range Interpretation Comments VITAMIN D,1,25-DIHYDROXY (test 11.3 PG/ML code = 4960) VITAMIN B 12 AND FOLIC [id number] 00:00:00 Test Item Value Reference Range Interpretation [...] (test code = 2821) 0.4 UIU/ML VITAMIN D,1,58-[id number] 00:00:00 Test Item Value Reference Range Interpretation Comments VITAMIN D,1,25-DIHYDROXY (test 11.3 PG/ML code = 4960) VITAMIN D,1,59-[id number] 00:00:00 Test Item Value Reference Range Interpretation Comments VITAMIN D,1,25-DIHYDROXY (test 11.3 PG/ML code = 4960) VITAMIN B 12 AND FOLIC [id number] 00:00:00 Test Item Value Reference Range Interpretation Comments VITAMIN B-12 (test code = 2840) 925 PG/ML FOLIC ACID (test code = 2695) >24.0 NG/ML VITAMIN B 12 AND FOLIC [id number] 00:00:00 Test Item Value Reference Range Interpretation [...] (test code = 2821) 0.4 UIU/ML LIPID [id number] 00:00:00 Test Item Value Reference Range Interpretation Comments CHOLESTEROL (test code = 2210) 172 MG/DL TRIGLYCERIDES (test code = 2232) 136 MG/DL HDL CHOLESTEROL (test code = 2220) 44 MG/DL CALC LDL CHOL (test code = 2237) 101 MG/DL RISK RATIO LDL/HDL (test code = 2.29 RATIO 2238) LIPID [id number] 00:00:00 Test Item Value Reference Range Interpretation Comments CHOLESTEROL (test code = 2210) 172 MG/DL TRIGLYCERIDES (test code = 2232) 136 MG/DL HDL CHOLESTEROL (test code = 2220) 44 MG/DL CALC LDL CHOL (test code = 2237) 101 MG/DL RISK RATIO LDL/HDL (test code = 2.29 RATIO 2238) [id number] 00:00:00 Test Item Value Reference Range Interpretation Comments TESTOSTERONE (test code = 2830) <12 NG/DL TESTOSTERONE REF RANGE (test code = (NOTE) 24072) [id number] 00:00:00 Test Item Value Reference Range Interpretation Comments TESTOSTERONE (test code = 2830) <12 NG/DL TESTOSTERONE REF RANGE (test code = (NOTE) 96852) [id number] 00:00:00 Test Item Value Reference Range Interpretation Comments PROLACTIN (test code = 2800) 5.8 NG/ML [id number] 00:00:00 Test Item Value Reference Range Interpretation Comments PROLACTIN (test code = 2800) 5.8 NG/ML FSH + LH [id number] 00:00:00 Test Item Value Reference Range Interpretation Comments FOLLICLE STIM HORMONE (test code = 8.9 MIU/ML 2700) LUTEINIZING HORMONE (test code = 6.5 MIU/ML 2776) FSH + LH [id number] 00:00:00 Test Item Value Reference Range Interpretation Comments FOLLICLE STIM HORMONE (test code = 8.9 MIU/ML 2700) LUTEINIZING HORMONE (test code = 6.5 MIU/ML 2776) LIPID [id number] 00:00:00 Test Item Value Reference Range Interpretation Comments CHOLESTEROL (test code = 2210) 172 MG/DL TRIGLYCERIDES (test code = 2232) 136 MG/DL HDL CHOLESTEROL (test code = 2220) 44 MG/DL CALC LDL CHOL (test code = 2237) 101 MG/DL RISK RATIO LDL/HDL (test code = 2.29 RATIO 2238) [id number] 00:00:00 Test Item Value Reference Range Interpretation Comments TESTOSTERONE (test code = 2830) <12 NG/DL TESTOSTERONE REF RANGE (test code = (NOTE) 73753) [id number] 00:00:00 Test Item Value Reference Range Interpretation Comments PROLACTIN (test code = 2800) 5.8 NG/ML FSH + LH [id number] 00:00:00 Test Item Value Reference Range Interpretation Comments FOLLICLE STIM HORMONE (test code = 8.9 MIU/ML 2700) LUTEINIZING HORMONE (test code = 6.5 MIU/ML 2776) VITAMIN D,1,95-[id number] 00:00:00 Test Item Value Reference Range Interpretation Comments VITAMIN D,1,25-DIHYDROXY (test 11.3 PG/ML code = 4960) VITAMIN D,1,74-[id number] 00:00:00 Test Item Value Reference Range Interpretation Comments VITAMIN D,1,25-DIHYDROXY (test 11.3 PG/ML code = 4960) VITAMIN B 12 AND FOLIC [id number] 00:00:00 Test Item Value Reference Range Interpretation Comments VITAMIN B-12 (test code = 2840) 925 PG/ML FOLIC ACID (test code = 2695) >24.0 NG/ML VITAMIN B 12 AND FOLIC [id number] 00:00:00 Test Item Value Reference Range Interpretation [...] (test code = 2821) 0.4 UIU/ML LIPID [id number] 00:00:00 Test Item Value Reference Range Interpretation Comments CHOLESTEROL (test code = 2210) 172 MG/DL TRIGLYCERIDES (test code = 2232) 136 MG/DL HDL CHOLESTEROL (test code = 2220) 44 MG/DL CALC LDL CHOL (test code = 2237) 101 MG/DL RISK RATIO LDL/HDL (test code = 2.29 RATIO 2238) LIPID [id number] 00:00:00 Test Item Value Reference Range Interpretation Comments CHOLESTEROL (test code = 2210) 172 MG/DL TRIGLYCERIDES (test code = 2232) 136 MG/DL HDL CHOLESTEROL (test code = 2220) 44 MG/DL CALC LDL CHOL (test code = 2237) 101 MG/DL RISK RATIO LDL/HDL (test code = 2.29 RATIO 2238) [id number] 00:00:00 Test Item Value Reference Range Interpretation Comments TESTOSTERONE (test code = 2830) <12 NG/DL TESTOSTERONE REF RANGE (test code = (NOTE) 10356) [id number] 00:00:00 Test Item Value Reference Range Interpretation Comments TESTOSTERONE (test code = 2830) <12 NG/DL TESTOSTERONE REF RANGE (test code = (NOTE) 23214) [id number] 00:00:00 Test Item Value Reference Range Interpretation Comments PROLACTIN (test code = 2800) 5.8 NG/ML [id number] 00:00:00 Test Item Value Reference Range Interpretation Comments PROLACTIN (test code = 2800) 5.8 NG/ML FSH + LH [id number] 00:00:00 Test Item Value Reference Range Interpretation Comments FOLLICLE STIM HORMONE (test code = 8.9 MIU/ML 2700) LUTEINIZING HORMONE (test code = 6.5 MIU/ML 2776) FSH + LH [id number] 00:00:00 Test Item Value Reference Range Interpretation Comments FOLLICLE STIM HORMONE (test code = 8.9 MIU/ML 2700) LUTEINIZING HORMONE (test code = 6.5 MIU/ML 2776) VITAMIN D,1,45-[id number] 00:00:00 Test Item Value Reference Range Interpretation Comments VITAMIN D,1,25-DIHYDROXY (test 11.3 PG/ML code = 4960) VITAMIN D,1,69-[id number] 00:00:00 Test Item Value Reference Range Interpretation Comments VITAMIN D,1,25-DIHYDROXY (test 11.3 PG/ML code = 4960) VITAMIN B 12 AND FOLIC [id number] 00:00:00 Test Item Value Reference Range Interpretation Comments VITAMIN B-12 (test code = 2840) 925 PG/ML FOLIC ACID (test code = 2695) >24.0 NG/ML VITAMIN B 12 AND FOLIC [id number] 00:00:00 Test Item Value Reference Range Interpretation Comments VITAMIN B-12 (test code = 2840) 925 PG/ML FOLIC ACID (test code = 2695) >24.0 NG/ML THYROID II PROFILE (T3U, T4, T7, TSH)[id number] 00:00:00 Test Item Value Reference Range Interpretation Comments T3 UPTAKE (test code = 2817) 31.0 % T4 (THYROXINE) (test code = 2819) 7.4 UG/DL CALCULATED T7 (FTI) (test code = 2.29 4840) TSH (test code = 2821) 0.4 UIU/ML THYROID II PROFILE (T3U, T4, T7, TSH)2016-03-22 00:00:00 Test Item Value Reference Range Interpretation Comments T3 UPTAKE (test code = 2817) 31.0 % T4 (THYROXINE) (test code = 2819) 7.4 UG/DL CALCULATED T7 (FTI) (test code = 2.29 2820) TSH (test code = 2821) 0.4 UIU/ML LIPID [id number] 00:00:00 Test Item Value Reference Range Interpretation Comments CHOLESTEROL (test code = 2210) 172 MG/DL TRIGLYCERIDES (test code = 2232) 136 MG/DL HDL CHOLESTEROL (test code = 2220) 44 MG/DL CALC LDL CHOL (test code = 2237) 101 MG/DL RISK RATIO LDL/HDL (test code = 2.29 RATIO 2238) LIPID [id number] 00:00:00 Test Item Value Reference Range Interpretation Comments CHOLESTEROL (test code = 2210) 172 MG/DL TRIGLYCERIDES (test code = 2232) 136 MG/DL HDL CHOLESTEROL (test code = 2220) 44 MG/DL CALC LDL CHOL (test code = 2237) 101 MG/DL RISK RATIO LDL/HDL (test code = 2.29 RATIO 2238) [id number] 00:00:00 Test Item Value Reference Range Interpretation Comments TESTOSTERONE (test code = 2830) <12 NG/DL TESTOSTERONE REF RANGE (test code = (NOTE) 02722) [id number] 00:00:00 Test Item Value Reference Range Interpretation Comments TESTOSTERONE (test code = 2830) <12 NG/DL TESTOSTERONE REF RANGE (test code = (NOTE) 29109) [id number] 00:00:00 Test Item Value Reference Range Interpretation Comments PROLACTIN (test code = 2800) 5.8 NG/ML [id number] 00:00:00 Test Item Value Reference Range Interpretation Comments PROLACTIN (test code = 2800) 5.8 NG/ML FSH + LH [id number] 00:00:00 Test Item Value Reference Range Interpretation Comments FOLLICLE STIM HORMONE (test code = 8.9 MIU/ML 2700) LUTEINIZING HORMONE (test code = 6.5 MIU/ML 2776) FSH + LH [id number] 00:00:00 Test Item Value Reference Range Interpretation Comments FOLLICLE STIM HORMONE (test code = 8.9 MIU/ML 2700) LUTEINIZING HORMONE (test code = 6.5 MIU/ML 2776) SEDIMENTATION [id number] 00:00:00 Test Item Value Reference Range Interpretation Comments SEDIMENTATION RATE (test code = 35 MM/HOUR 1017) SEDIMENTATION [id number] 00:00:00 Test Item Value Reference Range Interpretation Comments SEDIMENTATION RATE (test code = 35 MM/HOUR 1017) CBC W/AUTO [id number] 00:00:00 Test Item Value Reference Range Interpretation [...] code = 1015) 246 K/UL CBC W/AUTO [id number] 00:00:00 Test Item Value Reference Range Interpretation [...] code = 1015) 246 K/UL CBC W/AUTO [id number] 00:00:00 Test Item Value Reference Range Interpretation [...] (test code = 1015) 246 K/UL HEMOGLOBIN [id number] 00:00:00 Test Item Value Reference Range Interpretation Comments HEMOGLOBIN A1c (test code = 35107) 6.2 % HEMOGLOBIN [id number] 00:00:00 Test Item Value Reference Range Interpretation Comments HEMOGLOBIN A1c (test code = 26300) 6.2 % HEMOGLOBIN [id number] 00:00:00 Test Item Value Reference Range Interpretation Comments HEMOGLOBIN A1c (test code = 89277) 6.2 % SEDIMENTATION [id number] 00:00:00 Test Item Value Reference Range Interpretation Comments SEDIMENTATION RATE (test code = 35 MM/HOUR 1017) SEDIMENTATION [id number] 00:00:00 Test Item Value Reference Range Interpretation Comments SEDIMENTATION RATE (test code = 35 MM/HOUR 1017) CBC W/AUTO [id number] 00:00:00 Test Item Value Reference Range Interpretation [...] code = 1015) 246 K/UL CBC W/AUTO [id number] 00:00:00 Test Item Value Reference Range Interpretation [...] code = 1015) 246 K/UL CBC W/AUTO [id number] 00:00:00 Test Item Value Reference Range Interpretation [...] (test code = 1015) 246 K/UL HEMOGLOBIN [id number] 00:00:00 Test Item Value Reference Range Interpretation Comments HEMOGLOBIN A1c (test code = 87694) 6.2 % HEMOGLOBIN [id number] 00:00:00 Test Item Value Reference Range Interpretation Comments HEMOGLOBIN A1c (test code = 64225) 6.2 % HEMOGLOBIN [id number] 00:00:00 Test Item Value Reference Range Interpretation Comments HEMOGLOBIN A1c (test code = 64229) 6.2 % SEDIMENTATION [id number] 00:00:00 Test Item Value Reference Range Interpretation Comments SEDIMENTATION RATE (test code = 35 MM/HOUR 1017) SEDIMENTATION [id number] 00:00:00 Test Item Value Reference Range Interpretation Comments SEDIMENTATION RATE (test code = 35 MM/HOUR 1017) CBC W/AUTO [id number] 00:00:00 Test Item Value Reference Range Interpretation [...] code = 1015) 246 K/UL CBC W/AUTO [id number] 00:00:00 Test Item Value Reference Range Interpretation [...] code = 1015) 246 K/UL CBC W/AUTO [id number] 00:00:00 Test Item Value Reference Range Interpretation [...] (test code = 1015) 246 K/UL HEMOGLOBIN [id number] 00:00:00 Test Item Value Reference Range Interpretation Comments HEMOGLOBIN A1c (test code = 15180) 6.2 % HEMOGLOBIN [id number] 00:00:00 Test Item Value Reference Range Interpretation Comments HEMOGLOBIN A1c (test code = 91286) 6.2 % HEMOGLOBIN [id number] 00:00:00 Test Item Value Reference Range Interpretation Comments HEMOGLOBIN A1c (test code = 42897) 6.2 % SEDIMENTATION [id number] 00:00:00 Test Item Value Reference Range Interpretation Comments SEDIMENTATION RATE (test code = 35 MM/HOUR 1017) SEDIMENTATION [id number] 00:00:00 Test Item Value Reference Range Interpretation Comments SEDIMENTATION RATE (test code = 35 MM/HOUR 1017) CBC W/AUTO [id number] 00:00:00 Test Item Value Reference Range Interpretation [...] code = 1015) 246 K/UL CBC W/AUTO [id number] 00:00:00 Test Item Value Reference Range Interpretation [...] code = 1015) 246 K/UL CBC W/AUTO [id number] 00:00:00 Test Item Value Reference Range Interpretation [...] (test code = 1015) 246 K/UL HEMOGLOBIN [id number] 00:00:00 Test Item Value Reference Range Interpretation Comments HEMOGLOBIN A1c (test code = 26841) 6.2 % HEMOGLOBIN [id number] 00:00:00 Test Item Value Reference Range Interpretation Comments HEMOGLOBIN A1c (test code = 78428) 6.2 % HEMOGLOBIN [id number] 00:00:00 Test Item Value Reference Range Interpretation Comments HEMOGLOBIN A1c (test code = 45917) 6.2 % SEDIMENTATION [id number] 00:00:00 Test Item Value Reference Range Interpretation Comments SEDIMENTATION RATE (test code = 35 MM/HOUR 1017) SEDIMENTATION [id number] 00:00:00 Test Item Value Reference Range Interpretation Comments SEDIMENTATION RATE (test code = 35 MM/HOUR 1017) CBC W/AUTO [id number] 00:00:00 Test Item Value Reference Range Interpretation [...] code = 1015) 246 K/UL CBC W/AUTO [id number] 00:00:00 Test Item Value Reference Range Interpretation [...] code = 1015) 246 K/UL CBC W/AUTO [id number] 00:00:00 Test Item Value Reference Range Interpretation [...] (test code = 1015) 246 K/UL HEMOGLOBIN [id number] 00:00:00 Test Item Value Reference Range Interpretation Comments HEMOGLOBIN A1c (test code = 87713) 6.2 % HEMOGLOBIN [id number] 00:00:00 Test Item Value Reference Range Interpretation Comments HEMOGLOBIN A1c (test code = 21775) 6.2 % HEMOGLOBIN [id number] 00:00:00 Test Item Value Reference Range Interpretation Comments HEMOGLOBIN A1c (test code = 58824) 6.2 % SEDIMENTATION [id number] 00:00:00 Test Item Value Reference Range Interpretation Comments SEDIMENTATION RATE (test code = 35 MM/HOUR 1017) SEDIMENTATION [id number] 00:00:00 Test Item Value Reference Range Interpretation Comments SEDIMENTATION RATE (test code = 35 MM/HOUR 1017) CBC W/AUTO [id number] 00:00:00 Test Item Value Reference Range Interpretation [...] code = 1015) 246 K/UL CBC W/AUTO [id number] 00:00:00 Test Item Value Reference Range Interpretation [...] code = 1015) 246 K/UL CBC W/AUTO [id number] 00:00:00 Test Item Value Reference Range Interpretation [...] (test code = 1015) 246 K/UL HEMOGLOBIN [id number] 00:00:00 Test Item Value Reference Range Interpretation Comments HEMOGLOBIN A1c (test code = 71863) 6.2 % HEMOGLOBIN [id number] 00:00:00 Test Item Value Reference Range Interpretation Comments HEMOGLOBIN A1c (test code = 41427) 6.2 % HEMOGLOBIN [id number] 00:00:00 Test Item Value Reference Range Interpretation Comments HEMOGLOBIN A1c (test code = 13289) 6.2 % SEDIMENTATION [id number] 00:00:00 Test Item Value Reference Range Interpretation Comments SEDIMENTATION RATE (test code = 35 MM/HOUR 1017) SEDIMENTATION [id number] 00:00:00 Test Item Value Reference Range Interpretation Comments SEDIMENTATION RATE (test code = 35 MM/HOUR 1017) CBC W/AUTO [id number] 00:00:00 Test Item Value Reference Range Interpretation [...] code = 1015) 246 K/UL CBC W/AUTO [id number] 00:00:00 Test Item Value Reference Range Interpretation [...] code = 1015) 246 K/UL CBC W/AUTO [id number] 00:00:00 Test Item Value Reference Range Interpretation [...] (test code = 1015) 246 K/UL HEMOGLOBIN [id number] 00:00:00 Test Item Value Reference Range Interpretation Comments HEMOGLOBIN A1c (test code = 24525) 6.2 % HEMOGLOBIN [id number] 00:00:00 Test Item Value Reference Range Interpretation Comments HEMOGLOBIN A1c (test code = 97391) 6.2 % HEMOGLOBIN [id number] 00:00:00 Test Item Value Reference Range Interpretation Comments HEMOGLOBIN A1c (test code = 54712) 6.2 % SEDIMENTATION [id number] 00:00:00 Test Item Value Reference Range Interpretation Comments SEDIMENTATION RATE (test code = 35 MM/HOUR 1017) SEDIMENTATION [id number] 00:00:00 Test Item Value Reference Range Interpretation Comments SEDIMENTATION RATE (test code = 35 MM/HOUR 1017) SEDIMENTATION [id number] 00:00:00 Test Item Value Reference Range Interpretation Comments SEDIMENTATION RATE (test code = 35 MM/HOUR 1017) CBC W/AUTO [id number] 00:00:00 Test Item Value Reference Range Interpretation [...] code = 1015) 246 K/UL CBC W/AUTO [id number] 00:00:00 Test Item Value Reference Range Interpretation [...] code = 1015) 246 K/UL CBC W/AUTO [id number] 00:00:00 Test Item Value Reference Range Interpretation [...] code = 1015) 246 K/UL CBC W/AUTO [id number] 00:00:00 Test Item Value Reference Range Interpretation [...] (test code = 1015) 246 K/UL HEMOGLOBIN [id number] 00:00:00 Test Item Value Reference Range Interpretation Comments HEMOGLOBIN A1c (test code = 34512) 6.2 % HEMOGLOBIN [id number] 00:00:00 Test Item Value Reference Range Interpretation Comments HEMOGLOBIN A1c (test code = 26687) 6.2 % HEMOGLOBIN [id number] 00:00:00 Test Item Value Reference Range Interpretation Comments HEMOGLOBIN A1c (test code = 71575) 6.2 % CBC W/AUTO [id number] 00:00:00 Test Item Value Reference Range Interpretation [...] (test code = 1015) 246 K/UL HEMOGLOBIN [id number] 00:00:00 Test Item Value Reference Range Interpretation Comments HEMOGLOBIN A1c (test code = 26640) 6.2 % HEMOGLOBIN [id number] 00:00:00 Test Item Value Reference Range Interpretation Comments HEMOGLOBIN A1c (test code = 27307) 6.2 % SEDIMENTATION [id number] 00:00:00 Test Item Value Reference Range Interpretation Comments SEDIMENTATION RATE (test code = 35 MM/HOUR 1017) SEDIMENTATION [id number] 00:00:00 Test Item Value Reference Range Interpretation Comments SEDIMENTATION RATE (test code = 35 MM/HOUR 1017) CBC W/AUTO [id number] 00:00:00 Test Item Value Reference Range Interpretation [...] code = 1015) 246 K/UL CBC W/AUTO [id number] 00:00:00 Test Item Value Reference Range Interpretation [...] code = 1015) 246 K/UL CBC W/AUTO [id number] 00:00:00 Test Item Value Reference Range Interpretation [...] (test code = 1015) 246 K/UL HEMOGLOBIN [id number] 00:00:00 Test Item Value Reference Range Interpretation Comments HEMOGLOBIN A1c (test code = 75239) 6.2 % HEMOGLOBIN [id number] 00:00:00 Test Item Value Reference Range Interpretation Comments HEMOGLOBIN A1c (test code = 64691) 6.2 % HEMOGLOBIN [id number] 00:00:00 Test Item Value Reference Range Interpretation Comments HEMOGLOBIN A1c (test code = 70138) 6.2 % SEDIMENTATION [id number] 00:00:00 Test Item Value Reference Range Interpretation Comments SEDIMENTATION RATE (test code = 35 MM/HOUR 1017) SEDIMENTATION [id number] 00:00:00 Test Item Value Reference Range Interpretation Comments SEDIMENTATION RATE (test code = 35 MM/HOUR 1017) CBC W/AUTO [id number] 00:00:00 Test Item Value Reference Range Interpretation [...] code = 1015) 246 K/UL CBC W/AUTO [id number] 00:00:00 Test Item Value Reference Range Interpretation [...] code = 1015) 246 K/UL CBC W/AUTO [id number] 00:00:00 Test Item Value Reference Range Interpretation [...] (test code = 1015) 246 K/UL HEMOGLOBIN [id number] 00:00:00 Test Item Value Reference Range Interpretation Comments HEMOGLOBIN A1c (test code = 80053) 6.2 % HEMOGLOBIN [id number] 00:00:00 Test Item Value Reference Range Interpretation Comments HEMOGLOBIN A1c (test code = 90534) 6.2 % HEMOGLOBIN [id number] 00:00:00 Test Item Value Reference Range Interpretation Comments HEMOGLOBIN A1c (test code = 39178) 6.2 % COMPREHENSIVE METABOLIC [id number] 00:00:00 Test Item Value Reference Range Interpretation Comments GLUCOSE (test code = 2217) 100 MG/DL BUN (test code = 2208) 10 MG/DL CREATININE (test code = 2214) 0.61 MG/DL eGFR AMER. (test code 134 ML/MIN/1.73 = 36691) eGFR NON- AMER. (test 116 ML/MIN/1.73 code = 41854) CALCULATED BUN/CREAT (test 16 RATIO code = [...] code = 2219) 16 U/L COMPREHENSIVE METABOLIC [id number] 00:00:00 Test Item Value Reference Range Interpretation Comments GLUCOSE (test code = 2217) 100 MG/DL BUN (test code = 2208) 10 MG/DL CREATININE (test code = 2214) 0.61 MG/DL eGFR AMER. (test code 134 ML/MIN/1.73 = 44262) eGFR NON- AMER. (test 116 ML/MIN/1.73 code = 76343) CALCULATED BUN/CREAT (test 16 RATIO code = [...] (test code = 2219) 16 U/L LIPID [id number] 00:00:00 Test Item Value Reference Range Interpretation Comments CHOLESTEROL (test code = 2210) 166 MG/DL TRIGLYCERIDES (test code = 2232) 72 MG/DL HDL CHOLESTEROL (test code = 2220) 47 MG/DL CALCULATED LDL CHOL (test code = 105 MG/DL 2237) RISK RATIO LDL/HDL (test code = 2.23 RATIO 2238) LIPID [id number] 00:00:00 Test Item Value Reference Range Interpretation Comments CHOLESTEROL (test code = 2210) 166 MG/DL TRIGLYCERIDES (test code = 2232) 72 MG/DL HDL CHOLESTEROL (test code = 2220) 47 MG/DL CALCULATED LDL CHOL (test code = 105 MG/DL 2237) RISK RATIO LDL/HDL (test code = 2.23 RATIO 2238) [id number] 00:00:00 Test Item Value Reference Range Interpretation Comments TSH (test code = 2821) 1.2 UIU/ML [id number] 00:00:00 Test Item Value Reference Range Interpretation Comments TSH (test code = 2821) 1.2 UIU/ML [id number] 00:00:00 Test Item Value Reference Range Interpretation Comments TSH (test code = 2821) 1.2 UIU/ML COMPREHENSIVE METABOLIC [id number] 00:00:00 Test Item Value Reference Range Interpretation Comments GLUCOSE (test code = 2217) 100 MG/DL BUN (test code = 2208) 10 MG/DL CREATININE (test code = 2214) 0.61 MG/DL eGFR AMER. (test code 134 ML/MIN/1.73 = 82337) eGFR NON- AMER. (test 116 ML/MIN/1.73 code = 04264) CALCULATED BUN/CREAT (test 16 RATIO code = [...] code = 2219) 16 U/L COMPREHENSIVE METABOLIC [id number] 00:00:00 Test Item Value Reference Range Interpretation Comments GLUCOSE (test code = 2217) 100 MG/DL BUN (test code = 2208) 10 MG/DL CREATININE (test code = 2214) 0.61 MG/DL eGFR AMER. (test code 134 ML/MIN/1.73 = 30143) eGFR NON- AMER. (test 116 ML/MIN/1.73 code = 85696) CALCULATED BUN/CREAT (test 16 RATIO code = [...] (test code = 2219) 16 U/L LIPID [id number] 00:00:00 Test Item Value Reference Range Interpretation Comments CHOLESTEROL (test code = 2210) 166 MG/DL TRIGLYCERIDES (test code = 2232) 72 MG/DL HDL CHOLESTEROL (test code = 2220) 47 MG/DL CALCULATED LDL CHOL (test code = 105 MG/DL 2237) RISK RATIO LDL/HDL (test code = 2.23 RATIO 2238) LIPID [id number] 00:00:00 Test Item Value Reference Range Interpretation Comments CHOLESTEROL (test code = 2210) 166 MG/DL TRIGLYCERIDES (test code = 2232) 72 MG/DL HDL CHOLESTEROL (test code = 2220) 47 MG/DL CALCULATED LDL CHOL (test code = 105 MG/DL 2237) RISK RATIO LDL/HDL (test code = 2.23 RATIO 2238) [id number] 00:00:00 Test Item Value Reference Range Interpretation Comments TSH (test code = 2821) 1.2 UIU/ML [id number] 00:00:00 Test Item Value Reference Range Interpretation Comments TSH (test code = 2821) 1.2 UIU/ML [id number] 00:00:00 Test Item Value Reference Range Interpretation Comments TSH (test code = 2821) 1.2 UIU/ML COMPREHENSIVE METABOLIC [id number] 00:00:00 Test Item Value Reference Range Interpretation Comments GLUCOSE (test code = 2217) 100 MG/DL BUN (test code = 2208) 10 MG/DL CREATININE (test code = 2214) 0.61 MG/DL eGFR AMER. (test code 134 ML/MIN/1.73 = 71365) eGFR NON- AMER. (test 116 ML/MIN/1.73 code = 43687) CALCULATED BUN/CREAT (test 16 RATIO code = [...] code = 2219) 16 U/L COMPREHENSIVE METABOLIC [id number] 00:00:00 Test Item Value Reference Range Interpretation Comments GLUCOSE (test code = 2217) 100 MG/DL BUN (test code = 2208) 10 MG/DL CREATININE (test code = 2214) 0.61 MG/DL eGFR AMER. (test code 134 ML/MIN/1.73 = 83967) eGFR NON- AMER. (test 116 ML/MIN/1.73 code = 17178) CALCULATED BUN/CREAT (test 16 RATIO code = [...] (test code = 2219) 16 U/L LIPID [id number] 00:00:00 Test Item Value Reference Range Interpretation Comments CHOLESTEROL (test code = 2210) 166 MG/DL TRIGLYCERIDES (test code = 2232) 72 MG/DL HDL CHOLESTEROL (test code = 2220) 47 MG/DL CALCULATED LDL CHOL (test code = 105 MG/DL 2237) RISK RATIO LDL/HDL (test code = 2.23 RATIO 2238) LIPID [id number] 00:00:00 Test Item Value Reference Range Interpretation Comments CHOLESTEROL (test code = 2210) 166 MG/DL TRIGLYCERIDES (test code = 2232) 72 MG/DL HDL CHOLESTEROL (test code = 2220) 47 MG/DL CALCULATED LDL CHOL (test code = 105 MG/DL 2237) RISK RATIO LDL/HDL (test code = 2.23 RATIO 2238) [id number] 00:00:00 Test Item Value Reference Range Interpretation Comments TSH (test code = 2821) 1.2 UIU/ML [id number] 00:00:00 Test Item Value Reference Range Interpretation Comments TSH (test code = 2821) 1.2 UIU/ML [id number] 00:00:00 Test Item Value Reference Range Interpretation Comments TSH (test code = 2821) 1.2 UIU/ML COMPREHENSIVE METABOLIC [id number] 00:00:00 Test Item Value Reference Range Interpretation Comments GLUCOSE (test code = 2217) 100 MG/DL BUN (test code = 2208) 10 MG/DL CREATININE (test code = 2214) 0.61 MG/DL eGFR AMER. (test code 134 ML/MIN/1.73 = 42755) eGFR NON- AMER. (test 116 ML/MIN/1.73 code = 46508) CALCULATED BUN/CREAT (test 16 RATIO code = [...] code = 2219) 16 U/L COMPREHENSIVE METABOLIC [id number] 00:00:00 Test Item Value Reference Range Interpretation Comments GLUCOSE (test code = 2217) 100 MG/DL BUN (test code = 2208) 10 MG/DL CREATININE (test code = 2214) 0.61 MG/DL eGFR AMER. (test code 134 ML/MIN/1.73 = 30019) eGFR NON- AMER. (test 116 ML/MIN/1.73 code = 07982) CALCULATED BUN/CREAT (test 16 RATIO code = [...] (test code = 2219) 16 U/L LIPID [id number] 00:00:00 Test Item Value Reference Range Interpretation Comments CHOLESTEROL (test code = 2210) 166 MG/DL TRIGLYCERIDES (test code = 2232) 72 MG/DL HDL CHOLESTEROL (test code = 2220) 47 MG/DL CALCULATED LDL CHOL (test code = 105 MG/DL 2236) RISK RATIO LDL/HDL (test code = 2.23 RATIO 2238) LIPID [id number] 00:00:00 Test Item Value Reference Range Interpretation Comments CHOLESTEROL (test code = 2210) 166 MG/DL TRIGLYCERIDES (test code = 2232) 72 MG/DL HDL CHOLESTEROL (test code = 2220) 47 MG/DL CALCULATED LDL CHOL (test code = 105 MG/DL 2236) RISK RATIO LDL/HDL (test code = 2.23 RATIO 2238) [id number] 00:00:00 Test Item Value Reference Range Interpretation Comments TSH (test code = 2821) 1.2 UIU/ML [id number] 00:00:00 Test Item Value Reference Range Interpretation Comments TSH (test code = 2821) 1.2 UIU/ML [id number] 00:00:00 Test Item Value Reference Range Interpretation Comments TSH (test code = 2821) 1.2 UIU/ML COMPREHENSIVE METABOLIC [id number] 00:00:00 Test Item Value Reference Range Interpretation Comments GLUCOSE (test code = 2217) 100 MG/DL BUN (test code = 2208) 10 MG/DL CREATININE (test code = 2214) 0.61 MG/DL eGFR AMER. (test code 134 ML/MIN/1.73 = 70919) eGFR NON- AMER. (test 116 ML/MIN/1.73 code = 54173) CALCULATED BUN/CREAT (test 16 RATIO code = [...] code = 2219) 16 U/L COMPREHENSIVE METABOLIC [id number] 00:00:00 Test Item Value Reference Range Interpretation Comments GLUCOSE (test code = 2217) 100 MG/DL BUN (test code = 2208) 10 MG/DL CREATININE (test code = 2214) 0.61 MG/DL eGFR AMER. (test code 134 ML/MIN/1.73 = 80064) eGFR NON- AMER. (test 116 ML/MIN/1.73 code = 95232) CALCULATED BUN/CREAT (test 16 RATIO code = [...] (test code = 2219) 16 U/L LIPID [id number] 00:00:00 Test Item Value Reference Range Interpretation Comments CHOLESTEROL (test code = 2210) 166 MG/DL TRIGLYCERIDES (test code = 2232) 72 MG/DL HDL CHOLESTEROL (test code = 2220) 47 MG/DL CALCULATED LDL CHOL (test code = 105 MG/DL 2237) RISK RATIO LDL/HDL (test code = 2.23 RATIO 2238) LIPID [id number] 00:00:00 Test Item Value Reference Range Interpretation Comments CHOLESTEROL (test code = 2210) 166 MG/DL TRIGLYCERIDES (test code = 2232) 72 MG/DL HDL CHOLESTEROL (test code = 2220) 47 MG/DL CALCULATED LDL CHOL (test code = 105 MG/DL 2237) RISK RATIO LDL/HDL (test code = 2.23 RATIO 2238) [id number] 00:00:00 Test Item Value Reference Range Interpretation Comments TSH (test code = 2821) 1.2 UIU/ML [id number] 00:00:00 Test Item Value Reference Range Interpretation Comments TSH (test code = 2821) 1.2 UIU/ML [id number] 00:00:00 Test Item Value Reference Range Interpretation Comments TSH (test code = 2821) 1.2 UIU/ML COMPREHENSIVE METABOLIC [id number] 00:00:00 Test Item Value Reference Range Interpretation Comments GLUCOSE (test code = 2217) 100 MG/DL BUN (test code = 2208) 10 MG/DL CREATININE (test code = 2214) 0.61 MG/DL eGFR AMER. (test code 134 ML/MIN/1.73 = 55933) eGFR NON- AMER. (test 116 ML/MIN/1.73 code = 31970) CALCULATED BUN/CREAT (test 16 RATIO code = [...] code = 2219) 16 U/L COMPREHENSIVE METABOLIC [id number] 00:00:00 Test Item Value Reference Range Interpretation Comments GLUCOSE (test code = 2217) 100 MG/DL BUN (test code = 2208) 10 MG/DL CREATININE (test code = 2214) 0.61 MG/DL eGFR AMER. (test code 134 ML/MIN/1.73 = 15197) eGFR NON- AMER. (test 116 ML/MIN/1.73 code = 81765) CALCULATED BUN/CREAT (test 16 RATIO code = [...] (test code = 2219) 16 U/L LIPID [id number] 00:00:00 Test Item Value Reference Range Interpretation Comments CHOLESTEROL (test code = 2210) 166 MG/DL TRIGLYCERIDES (test code = 2232) 72 MG/DL HDL CHOLESTEROL (test code = 2220) 47 MG/DL CALCULATED LDL CHOL (test code = 105 MG/DL 2237) RISK RATIO LDL/HDL (test code = 2.23 RATIO 2238) LIPID [id number] 00:00:00 Test Item Value Reference Range Interpretation Comments CHOLESTEROL (test code = 2210) 166 MG/DL TRIGLYCERIDES (test code = 2232) 72 MG/DL HDL CHOLESTEROL (test code = 2220) 47 MG/DL CALCULATED LDL CHOL (test code = 105 MG/DL 2237) RISK RATIO LDL/HDL (test code = 2.23 RATIO 2238) [id number] 00:00:00 Test Item Value Reference Range Interpretation Comments TSH (test code = 2821) 1.2 UIU/ML [id number] 00:00:00 Test Item Value Reference Range Interpretation Comments TSH (test code = 2821) 1.2 UIU/ML [id number] 00:00:00 Test Item Value Reference Range Interpretation Comments TSH (test code = 2821) 1.2 UIU/ML COMPREHENSIVE METABOLIC [id number] 00:00:00 Test Item Value Reference Range Interpretation Comments GLUCOSE (test code = 2217) 100 MG/DL BUN (test code = 2208) 10 MG/DL CREATININE (test code = 2214) 0.61 MG/DL eGFR AMER. (test code 134 ML/MIN/1.73 = 01644) eGFR NON- AMER. (test 116 ML/MIN/1.73 code = 56399) CALCULATED BUN/CREAT (test 16 RATIO code = [...] code = 2219) 16 U/L COMPREHENSIVE METABOLIC [id number] 00:00:00 Test Item Value Reference Range Interpretation Comments GLUCOSE (test code = 2217) 100 MG/DL BUN (test code = 2208) 10 MG/DL CREATININE (test code = 2214) 0.61 MG/DL eGFR AMER. (test code 134 ML/MIN/1.73 = 02243) eGFR NON- AMER. (test 116 ML/MIN/1.73 code = 12706) CALCULATED BUN/CREAT (test 16 RATIO code = [...] code = 2219) 16 U/L COMPREHENSIVE METABOLIC [id number] 00:00:00 Test Item Value Reference Range Interpretation Comments GLUCOSE (test code = 2217) 100 MG/DL BUN (test code = 2208) 10 MG/DL CREATININE (test code = 2214) 0.61 MG/DL eGFR AMER. (test code 134 ML/MIN/1.73 = 57219) eGFR NON- AMER. (test 116 ML/MIN/1.73 code = 03429) CALCULATED BUN/CREAT (test 16 RATIO code = [...] (test code = 2219) 16 U/L LIPID [id number] 00:00:00 Test Item Value Reference Range Interpretation Comments CHOLESTEROL (test code = 2210) 166 MG/DL TRIGLYCERIDES (test code = 2232) 72 MG/DL HDL CHOLESTEROL (test code = 2220) 47 MG/DL CALCULATED LDL CHOL (test code = 105 MG/DL 223) RISK RATIO LDL/HDL (test code = 2.23 RATIO 2238) LIPID [id number] 00:00:00 Test Item Value Reference Range Interpretation Comments CHOLESTEROL (test code = 2210) 166 MG/DL TRIGLYCERIDES (test code = 2232) 72 MG/DL HDL CHOLESTEROL (test code = 2220) 47 MG/DL CALCULATED LDL CHOL (test code = 105 MG/DL 2237) RISK RATIO LDL/HDL (test code = 2.23 RATIO 2238) [id number] 00:00:00 Test Item Value Reference Range Interpretation Comments TSH (test code = 2821) 1.2 UIU/ML [id number] 00:00:00 Test Item Value Reference Range Interpretation Comments TSH (test code = 2821) 1.2 UIU/ML [id number] 00:00:00 Test Item Value Reference Range Interpretation Comments TSH (test code = 2821) 1.2 UIU/ML LIPID [id number] 00:00:00 Test Item Value Reference Range Interpretation Comments CHOLESTEROL (test code = 2210) 166 MG/DL TRIGLYCERIDES (test code = 2232) 72 MG/DL HDL CHOLESTEROL (test code = 2220) 47 MG/DL CALCULATED LDL CHOL (test code = 105 MG/DL 2236) RISK RATIO LDL/HDL (test code = 2.23 RATIO 2237) COMPREHENSIVE METABOLIC [id number] 00:00:00 Test Item Value Reference Range Interpretation Comments GLUCOSE (test code = 2217) 100 MG/DL BUN (test code = 2208) 10 MG/DL CREATININE (test code = 2214) 0.61 MG/DL eGFR AMER. (test code 134 ML/MIN/1.73 = 69214) eGFR NON- AMER. (test 116 ML/MIN/1.73 code = 82335) CALCULATED BUN/CREAT (test 16 RATIO code = [...] code = 2219) 16 U/L COMPREHENSIVE METABOLIC [id number] 00:00:00 Test Item Value Reference Range Interpretation Comments GLUCOSE (test code = 2217) 100 MG/DL BUN (test code = 2208) 10 MG/DL CREATININE (test code = 2214) 0.61 MG/DL eGFR AMER. (test code 134 ML/MIN/1.73 = 23237) eGFR NON- AMER. (test 116 ML/MIN/1.73 code = 75033) CALCULATED BUN/CREAT (test 16 RATIO code = [...] (test code = 2219) 16 U/L LIPID [id number] 00:00:00 Test Item Value Reference Range Interpretation Comments CHOLESTEROL (test code = 2210) 166 MG/DL TRIGLYCERIDES (test code = 2232) 72 MG/DL HDL CHOLESTEROL (test code = 2220) 47 MG/DL CALCULATED LDL CHOL (test code = 105 MG/DL 2236) RISK RATIO LDL/HDL (test code = 2.23 RATIO 2238) LIPID [id number] 00:00:00 Test Item Value Reference Range Interpretation Comments CHOLESTEROL (test code = 2210) 166 MG/DL TRIGLYCERIDES (test code = 2232) 72 MG/DL HDL CHOLESTEROL (test code = 2220) 47 MG/DL CALCULATED LDL CHOL (test code = 105 MG/DL 7) RISK RATIO LDL/HDL (test code = 2.23 RATIO 2238) [id number] 00:00:00 Test Item Value Reference Range Interpretation Comments TSH (test code = 2821) 1.2 UIU/ML [id number] 00:00:00 Test Item Value Reference Range Interpretation Comments TSH (test code = 2821) 1.2 UIU/ML [id number] 00:00:00 Test Item Value Reference Range Interpretation Comments TSH (test code = 2821) 1.2 UIU/ML [id number] 00:00:00 Test Item Value Reference Range Interpretation Comments TSH (test code = 2821) 1.2 UIU/ML [id number] 00:00:00 Test Item Value Reference Range Interpretation Comments TSH (test code = 2821) 1.2 UIU/ML COMPREHENSIVE METABOLIC [id number] 00:00:00 Test Item Value Reference Range Interpretation Comments GLUCOSE (test code = 2217) 100 MG/DL BUN (test code = 2208) 10 MG/DL CREATININE (test code = 2214) 0.61 MG/DL eGFR AMER. (test code 134 ML/MIN/1.73 = 03305) eGFR NON- AMER. (test 116 ML/MIN/1.73 code = 93502) CALCULATED BUN/CREAT (test 16 RATIO code = [...] code = 2219) 16 U/L COMPREHENSIVE METABOLIC [id number] 00:00:00 Test Item Value Reference Range Interpretation Comments GLUCOSE (test code = 2217) 100 MG/DL BUN (test code = 2208) 10 MG/DL CREATININE (test code = 2214) 0.61 MG/DL eGFR AMER. (test code 134 ML/MIN/1.73 = 81082) eGFR NON- AMER. (test 116 ML/MIN/1.73 code = 67003) CALCULATED BUN/CREAT (test 16 RATIO code = [...] (test code = 2219) 16 U/L LIPID [id number] 00:00:00 Test Item Value Reference Range Interpretation Comments CHOLESTEROL (test code = 2210) 166 MG/DL TRIGLYCERIDES (test code = 2232) 72 MG/DL HDL CHOLESTEROL (test code = 2220) 47 MG/DL CALCULATED LDL CHOL (test code = 105 MG/DL 2237) RISK RATIO LDL/HDL (test code = 2.23 RATIO 2238) LIPID [id number] 00:00:00 Test Item Value Reference Range Interpretation Comments CHOLESTEROL (test code = 2210) 166 MG/DL TRIGLYCERIDES (test code = 2232) 72 MG/DL HDL CHOLESTEROL (test code = 2220) 47 MG/DL CALCULATED LDL CHOL (test code = 105 MG/DL 2237) RISK RATIO LDL/HDL (test code = 2.23 RATIO 2238) [id number] 00:00:00 Test Item Value Reference Range Interpretation Comments TSH (test code = 2821) 1.2 UIU/ML [id number] 00:00:00 Test Item Value Reference Range Interpretation Comments TSH (test code = 2821) 1.2 UIU/ML [id number] 00:00:00 Test Item Value Reference Range Interpretation Comments TSH (test code = 2821) 1.2 UIU/ML COMPREHENSIVE METABOLIC [id number] 00:00:00 Test Item Value Reference Range Interpretation Comments GLUCOSE (test code = 2217) 100 MG/DL BUN (test code = 2208) 10 MG/DL CREATININE (test code = 2214) 0.61 MG/DL eGFR AMER. (test code 134 ML/MIN/1.73 = 00847) eGFR NON- AMER. (test 116 ML/MIN/1.73 code = 38287) CALCULATED BUN/CREAT (test 16 RATIO code = [...] code = 2219) 16 U/L COMPREHENSIVE METABOLIC [id number] 00:00:00 Test Item Value Reference Range Interpretation Comments GLUCOSE (test code = 2217) 100 MG/DL BUN (test code = 2208) 10 MG/DL CREATININE (test code = 2214) 0.61 MG/DL eGFR AMER. (test code 134 ML/MIN/1.73 = 74285) eGFR NON- AMER. (test 116 ML/MIN/1.73 code = 59298) CALCULATED BUN/CREAT (test 16 RATIO code = [...] (test code = 2219) 16 U/L LIPID [id number] 00:00:00 Test Item Value Reference Range Interpretation Comments CHOLESTEROL (test code = 2210) 166 MG/DL TRIGLYCERIDES (test code = 2232) 72 MG/DL HDL CHOLESTEROL (test code = 2220) 47 MG/DL CALCULATED LDL CHOL (test code = 105 MG/DL 7) RISK RATIO LDL/HDL (test code = 2.23 RATIO 2238) LIPID [id number] 00:00:00 Test Item Value Reference Range Interpretation Comments CHOLESTEROL (test code = 2210) 166 MG/DL TRIGLYCERIDES (test code = 2232) 72 MG/DL HDL CHOLESTEROL (test code = 2220) 47 MG/DL CALCULATED LDL CHOL (test code = 105 MG/DL 7) RISK RATIO LDL/HDL (test code = 2.23 RATIO 2238) [id number] 00:00:00 Test Item Value Reference Range Interpretation Comments TSH (test code = 2821) 1.2 UIU/ML [id number] 00:00:00 Test Item Value Reference Range Interpretation Comments TSH (test code = 2821) 1.2 UIU/ML [id number] 00:00:00 Test Item Value Reference Range Interpretation Comments TSH (test code = 2821) 1.2 UIU/ML CBC W/AUTO [id number] 00:00:00 Test Item Value Reference Range Interpretation [...] code = 1015) 243 K/UL CBC W/AUTO [id number] 00:00:00 Test Item Value Reference Range Interpretation [...] code = 1015) 243 K/UL CBC W/AUTO [id number] 00:00:00 Test Item Value Reference Range Interpretation [...] (test code = 1015) 243 K/UL HEMOGLOBIN [id number] 00:00:00 Test Item Value Reference Range Interpretation Comments HEMOGLOBIN A1c (test code = 75110) 6.4 % HEMOGLOBIN [id number] 00:00:00 Test Item Value Reference Range Interpretation Comments HEMOGLOBIN A1c (test code = 08514) 6.4 % HEMOGLOBIN [id number] 00:00:00 Test Item Value Reference Range Interpretation Comments HEMOGLOBIN A1c (test code = 02077) 6.4 % CBC W/AUTO [id number] 00:00:00 Test Item Value Reference Range Interpretation [...] code = 1015) 243 K/UL CBC W/AUTO [id number] 00:00:00 Test Item Value Reference Range Interpretation [...] code = 1015) 243 K/UL CBC W/AUTO [id number] 00:00:00 Test Item Value Reference Range Interpretation [...] (test code = 1015) 243 K/UL HEMOGLOBIN [id number] 00:00:00 Test Item Value Reference Range Interpretation Comments HEMOGLOBIN A1c (test code = 83387) 6.4 % HEMOGLOBIN [id number] 00:00:00 Test Item Value Reference Range Interpretation Comments HEMOGLOBIN A1c (test code = 73698) 6.4 % HEMOGLOBIN [id number] 00:00:00 Test Item Value Reference Range Interpretation Comments HEMOGLOBIN A1c (test code = 83057) 6.4 % CBC W/AUTO [id number] 00:00:00 Test Item Value Reference Range Interpretation [...] code = 1015) 243 K/UL CBC W/AUTO [id number] 00:00:00 Test Item Value Reference Range Interpretation [...] code = 1015) 243 K/UL CBC W/AUTO [id number] 00:00:00 Test Item Value Reference Range Interpretation [...] (test code = 1015) 243 K/UL HEMOGLOBIN [id number] 00:00:00 Test Item Value Reference Range Interpretation Comments HEMOGLOBIN A1c (test code = 52038) 6.4 % HEMOGLOBIN [id number] 00:00:00 Test Item Value Reference Range Interpretation Comments HEMOGLOBIN A1c (test code = 51476) 6.4 % HEMOGLOBIN [id number] 00:00:00 Test Item Value Reference Range Interpretation Comments HEMOGLOBIN A1c (test code = 21069) 6.4 % CBC W/AUTO [id number] 00:00:00 Test Item Value Reference Range Interpretation [...] code = 1015) 243 K/UL CBC W/AUTO [id number] 00:00:00 Test Item Value Reference Range Interpretation [...] code = 1015) 243 K/UL CBC W/AUTO [id number] 00:00:00 Test Item Value Reference Range Interpretation [...] (test code = 1015) 243 K/UL HEMOGLOBIN [id number] 00:00:00 Test Item Value Reference Range Interpretation Comments HEMOGLOBIN A1c (test code = 95500) 6.4 % HEMOGLOBIN [id number] 00:00:00 Test Item Value Reference Range Interpretation Comments HEMOGLOBIN A1c (test code = 31932) 6.4 % HEMOGLOBIN [id number] 00:00:00 Test Item Value Reference Range Interpretation Comments HEMOGLOBIN A1c (test code = 04615) 6.4 % CBC W/AUTO [id number] 00:00:00 Test Item Value Reference Range Interpretation [...] code = 1015) 243 K/UL CBC W/AUTO [id number] 00:00:00 Test Item Value Reference Range Interpretation [...] code = 1015) 243 K/UL CBC W/AUTO [id number] 00:00:00 Test Item Value Reference Range Interpretation [...] (test code = 1015) 243 K/UL HEMOGLOBIN [id number] 00:00:00 Test Item Value Reference Range Interpretation Comments HEMOGLOBIN A1c (test code = 83467) 6.4 % HEMOGLOBIN [id number] 00:00:00 Test Item Value Reference Range Interpretation Comments HEMOGLOBIN A1c (test code = 50587) 6.4 % HEMOGLOBIN [id number] 00:00:00 Test Item Value Reference Range Interpretation Comments HEMOGLOBIN A1c (test code = 17278) 6.4 % CBC W/AUTO [id number] 00:00:00 Test Item Value Reference Range Interpretation [...] code = 1015) 243 K/UL CBC W/AUTO [id number] 00:00:00 Test Item Value Reference Range Interpretation [...] code = 1015) 243 K/UL CBC W/AUTO [id number] 00:00:00 Test Item Value Reference Range Interpretation [...] (test code = 1015) 243 K/UL HEMOGLOBIN [id number] 00:00:00 Test Item Value Reference Range Interpretation Comments HEMOGLOBIN A1c (test code = 43182) 6.4 % HEMOGLOBIN [id number] 00:00:00 Test Item Value Reference Range Interpretation Comments HEMOGLOBIN A1c (test code = 23873) 6.4 % HEMOGLOBIN [id number] 00:00:00 Test Item Value Reference Range Interpretation Comments HEMOGLOBIN A1c (test code = 46608) 6.4 % CBC W/AUTO [id number] 00:00:00 Test Item Value Reference Range Interpretation [...] code = 1015) 243 K/UL CBC W/AUTO [id number] 00:00:00 Test Item Value Reference Range Interpretation [...] code = 1015) 243 K/UL CBC W/AUTO [id number] 00:00:00 Test Item Value Reference Range Interpretation [...] (test code = 1015) 243 K/UL HEMOGLOBIN [id number] 00:00:00 Test Item Value Reference Range Interpretation Comments HEMOGLOBIN A1c (test code = 98260) 6.4 % HEMOGLOBIN [id number] 00:00:00 Test Item Value Reference Range Interpretation Comments HEMOGLOBIN A1c (test code = 93594) 6.4 % HEMOGLOBIN [id number] 00:00:00 Test Item Value Reference Range Interpretation Comments HEMOGLOBIN A1c (test code = 12744) 6.4 % CBC W/AUTO [id number] 00:00:00 Test Item Value Reference Range Interpretation [...] code = 1015) 243 K/UL CBC W/AUTO [id number] 00:00:00 Test Item Value Reference Range Interpretation [...] (test code = 1015) 243 K/UL HEMOGLOBIN [id number] 00:00:00 Test Item Value Reference Range Interpretation Comments HEMOGLOBIN A1c (test code = 16912) 6.4 % HEMOGLOBIN [id number] 00:00:00 Test Item Value Reference Range Interpretation Comments HEMOGLOBIN A1c (test code = 06033) 6.4 % CBC W/AUTO [id number] 00:00:00 Test Item Value Reference Range Interpretation [...] code = 1015) 243 K/UL CBC W/AUTO [id number] 00:00:00 Test Item Value Reference Range Interpretation [...] code = 1015) 243 K/UL CBC W/AUTO [id number] 00:00:00 Test Item Value Reference Range Interpretation [...] (test code = 1015) 243 K/UL HEMOGLOBIN [id number] 00:00:00 Test Item Value Reference Range Interpretation Comments HEMOGLOBIN A1c (test code = 66317) 6.4 % HEMOGLOBIN [id number] 00:00:00 Test Item Value Reference Range Interpretation Comments HEMOGLOBIN A1c (test code = 47691) 6.4 % HEMOGLOBIN [id number] 00:00:00 Test Item Value Reference Range Interpretation Comments HEMOGLOBIN A1c (test code = 51670) 6.4 % CBC W/AUTO [id number] 00:00:00 Test Item Value Reference Range Interpretation [...] code = 1015) 243 K/UL CBC W/AUTO [id number] 00:00:00 Test Item Value Reference Range Interpretation [...] code = 1015) 243 K/UL CBC W/AUTO [id number] 00:00:00 Test Item Value Reference Range Interpretation [...] (test code = 1015) 243 K/UL HEMOGLOBIN [id number] 00:00:00 Test Item Value Reference Range Interpretation Comments HEMOGLOBIN A1c (test code = 04300) 6.4 % HEMOGLOBIN [id number] 00:00:00 Test Item Value Reference Range Interpretation Comments HEMOGLOBIN A1c (test code = 57275) 6.4 % HEMOGLOBIN [id number] 00:00:00 Test Item Value Reference Range Interpretation Comments HEMOGLOBIN A1c (test code = 52372) 6.4 % CBC W/AUTO [id number] 00:00:00 Test Item Value Reference Range Interpretation [...] code = 1015) 243 K/UL CBC W/AUTO [id number] 00:00:00 Test Item Value Reference Range Interpretation [...] code = 1015) 243 K/UL CBC W/AUTO [id number] 00:00:00 Test Item Value Reference Range Interpretation [...] (test code = 1015) 243 K/UL HEMOGLOBIN [id number] 00:00:00 Test Item Value Reference Range Interpretation Comments HEMOGLOBIN A1c (test code = 66868) 6.4 % HEMOGLOBIN [id number] 00:00:00 Test Item Value Reference Range Interpretation Comments HEMOGLOBIN A1c (test code = 97939) 6.4 % HEMOGLOBIN [id number] 00:00:00 Test Item Value Reference Range Interpretation Comments HEMOGLOBIN A1c (test code = 74785) 6.4 % CHLAMYDIA, AMPLIFIED, [id number] 00:00:00 Test Item Value Reference Range Interpretation Comments CHLAMYDIA, AMPLIFIED (test code = NEGATIVE 03711) CHLAMYDIA, AMPLIFIED, [id number] 00:00:00 Test Item Value Reference Range Interpretation Comments CHLAMYDIA, AMPLIFIED (test code = NEGATIVE 74477) GC, AMPLIFIED, [id number] 00:00:00 Test Item Value Reference Range Interpretation Comments GONORRHEA, AMPLIFIED (test code = NEGATIVE 51381) GC, AMPLIFIED, [id number] 00:00:00 Test Item Value Reference Range Interpretation Comments GONORRHEA, AMPLIFIED (test code = NEGATIVE 49765) HIV AB/AG COMBO RFLX [id number] 00:00:00 Test Item Value Reference Range Interpretation Comments HIV AB/AG COMBO RFLX CONF (test NON-REACTIVE code = 3514) HIV AB/AG COMBO RFLX [id number] 00:00:00 Test Item Value Reference Range Interpretation Comments HIV AB/AG COMBO RFLX CONF (test NON-REACTIVE code = 3514) [id number] 00:00:00 Test Item Value Reference Range Interpretation Comments RPR RESULT (test code = NON-REACTIVE 3501) RPR TITER (test code = 3500) NOT INDIC. TITER [id number] 00:00:00 Test Item Value Reference Range Interpretation Comments RPR RESULT (test code = NON-REACTIVE 3501) RPR TITER (test code = 3500) NOT INDIC. TITER [id number] 00:00:00 Test Item Value Reference Range Interpretation [...] INTERPRETATION HEPATITIS B: (NOTE) (test code = 28936) INTERPRETATION HEPATITIS C: (NOTE) (test code = 64996) HEPATITIS PROFILE (A,B,C)2015-06-24 00:00:00 Test Item Value [...] INTERPRETATION HEPATITIS B: (NOTE) (test code = 20924) INTERPRETATION HEPATITIS C: (NOTE) (test code = 59284) COMPREHENSIVE METABOLIC [id number] 00:00:00 Test Item Value Reference Range Interpretation Comments GLUCOSE (test code = 2217) 105 MG/DL BUN (test code = 2208) 11 MG/DL CREATININE (test code = 2214) 0.80 MG/DL eGFR AMER. (test code 109 ML/MIN/1.73 = 56732) eGFR NON- AMER. (test 94 ML/MIN/1.73 code = 80190) CALCULATED BUN/CREAT (test 14 RATIO code = [...] code = 2219) 14 U/L COMPREHENSIVE METABOLIC [id number] 00:00:00 Test Item Value Reference Range Interpretation Comments GLUCOSE (test code = 2217) 105 MG/DL BUN (test code = 2208) 11 MG/DL CREATININE (test code = 2214) 0.80 MG/DL eGFR AMER. (test code 109 ML/MIN/1.73 = 57529) eGFR NON- AMER. (test 94 ML/MIN/1.73 code = 96753) CALCULATED BUN/CREAT (test 14 RATIO code = [...] (test code = 2219) 14 U/L LIPID [id number] 00:00:00 Test Item Value Reference Range Interpretation Comments CHOLESTEROL (test code = 2210) 211 MG/DL TRIGLYCERIDES (test code = 2232) 209 MG/DL HDL CHOLESTEROL (test code = 2220) 38 MG/DL CALCULATED LDL CHOL (test code = 131 MG/DL 2237) RISK RATIO LDL/HDL (test code = 3.45 RATIO 2238) LIPID [id number] 00:00:00 Test Item Value Reference Range Interpretation Comments CHOLESTEROL (test code = 2210) 211 MG/DL TRIGLYCERIDES (test code = 2232) 209 MG/DL HDL CHOLESTEROL (test code = 2220) 38 MG/DL CALCULATED LDL CHOL (test code = 131 MG/DL 2237) RISK RATIO LDL/HDL (test code = 3.45 RATIO 2238) CBC W/AUTO [id number] 00:00:00 Test Item Value Reference Range Interpretation [...] code = 1015) 254 K/UL CBC W/AUTO [id number] 00:00:00 Test Item Value Reference Range Interpretation [...] code = 1015) 254 K/UL CBC W/AUTO [id number] 00:00:00 Test Item Value Reference Range Interpretation [...] (test code = 1015) 254 K/UL HEMOGLOBIN [id number] 00:00:00 Test Item Value Reference Range Interpretation Comments HEMOGLOBIN A1c (test code = 81251) 6.9 % HEMOGLOBIN [id number] 00:00:00 Test Item Value Reference Range Interpretation Comments HEMOGLOBIN A1c (test code = 70796) 6.9 % HEMOGLOBIN [id number] 00:00:00 Test Item Value Reference Range Interpretation Comments HEMOGLOBIN A1c (test code = 61683) 6.9 % [id number] 00:00:00 Test Item Value Reference Range Interpretation Comments TSH (test code = 2821) 0.5 UIU/ML [id number] 00:00:00 Test Item Value Reference Range Interpretation Comments TSH (test code = 2821) 0.5 UIU/ML [id number] 00:00:00 Test Item Value Reference Range Interpretation Comments TSH (test code = 2821) 0.5 UIU/ML HEPATITIS A IgM [REFLEX]2015-06-24 00:00:00 Test Item Value Reference Range Interpretation Comments HEPATITIS A IgM (test code = NON-REACTIVE 2728) CHLAMYDIA, AMPLIFIED, [id number] 00:00:00 Test Item Value Reference Range Interpretation Comments CHLAMYDIA, AMPLIFIED (test code = NEGATIVE 08125) CHLAMYDIA, AMPLIFIED, [id number] 00:00:00 Test Item Value Reference Range Interpretation Comments CHLAMYDIA, AMPLIFIED (test code = NEGATIVE 16466) GC, AMPLIFIED, [id number] 00:00:00 Test Item Value Reference Range Interpretation Comments GONORRHEA, AMPLIFIED (test code = NEGATIVE 56196) GC, AMPLIFIED, [id number] 00:00:00 Test Item Value Reference Range Interpretation Comments GONORRHEA, AMPLIFIED (test code = NEGATIVE 27966) HIV AB/AG COMBO RFLX [id number] 00:00:00 Test Item Value Reference Range Interpretation Comments HIV AB/AG COMBO RFLX CONF (test NON-REACTIVE code = 3514) HIV AB/AG COMBO RFLX [id number] 00:00:00 Test Item Value Reference Range Interpretation Comments HIV AB/AG COMBO RFLX CONF (test NON-REACTIVE code = 3514) [id number] 00:00:00 Test Item Value Reference Range Interpretation Comments RPR RESULT (test code = NON-REACTIVE 3501) RPR TITER (test code = 3500) NOT INDIC. TITER [id number] 00:00:00 Test Item Value Reference Range Interpretation Comments RPR RESULT (test code = NON-REACTIVE 3501) RPR TITER (test code = 3500) NOT INDIC. TITER [id number] 00:00:00 Test Item Value Reference Range Interpretation [...] INTERPRETATION HEPATITIS B: (NOTE) (test code = 29159) INTERPRETATION HEPATITIS C: (NOTE) (test code = 64279) HEPATITIS PROFILE (A,B,C)2015-06-24 00:00:00 Test Item Value [...] INTERPRETATION HEPATITIS B: (NOTE) (test code = 21694) INTERPRETATION HEPATITIS C: (NOTE) (test code = 98016) COMPREHENSIVE METABOLIC [id number] 00:00:00 Test Item Value Reference Range Interpretation Comments GLUCOSE (test code = 2217) 105 MG/DL BUN (test code = 2208) 11 MG/DL CREATININE (test code = 2214) 0.80 MG/DL eGFR AMER. (test code 109 ML/MIN/1.73 = 57403) eGFR NON- AMER. (test 94 ML/MIN/1.73 code = 78599) CALCULATED BUN/CREAT (test 14 RATIO code = [...] code = 2219) 14 U/L COMPREHENSIVE METABOLIC [id number] 00:00:00 Test Item Value Reference Range Interpretation Comments GLUCOSE (test code = 2217) 105 MG/DL BUN (test code = 2208) 11 MG/DL CREATININE (test code = 2214) 0.80 MG/DL eGFR AMER. (test code 109 ML/MIN/1.73 = 86482) eGFR NON- AMER. (test 94 ML/MIN/1.73 code = 82801) CALCULATED BUN/CREAT (test 14 RATIO code = [...] (test code = 2219) 14 U/L LIPID [id number] 00:00:00 Test Item Value Reference Range Interpretation Comments CHOLESTEROL (test code = 2210) 211 MG/DL TRIGLYCERIDES (test code = 2232) 209 MG/DL HDL CHOLESTEROL (test code = 2220) 38 MG/DL CALCULATED LDL CHOL (test code = 131 MG/DL 2237) RISK RATIO LDL/HDL (test code = 3.45 RATIO 2238) LIPID [id number] 00:00:00 Test Item Value Reference Range Interpretation Comments CHOLESTEROL (test code = 2210) 211 MG/DL TRIGLYCERIDES (test code = 2232) 209 MG/DL HDL CHOLESTEROL (test code = 2220) 38 MG/DL CALCULATED LDL CHOL (test code = 131 MG/DL 2237) RISK RATIO LDL/HDL (test code = 3.45 RATIO 2238) CBC W/AUTO [id number] 00:00:00 Test Item Value Reference Range Interpretation [...] code = 1015) 254 K/UL CBC W/AUTO [id number] 00:00:00 Test Item Value Reference Range Interpretation [...] code = 1015) 254 K/UL CBC W/AUTO [id number] 00:00:00 Test Item Value Reference Range Interpretation [...] (test code = 1015) 254 K/UL HEMOGLOBIN [id number] 00:00:00 Test Item Value Reference Range Interpretation Comments HEMOGLOBIN A1c (test code = 64536) 6.9 % HEMOGLOBIN [id number] 00:00:00 Test Item Value Reference Range Interpretation Comments HEMOGLOBIN A1c (test code = 55203) 6.9 % HEMOGLOBIN [id number] 00:00:00 Test Item Value Reference Range Interpretation Comments HEMOGLOBIN A1c (test code = 57314) 6.9 % [id number] 00:00:00 Test Item Value Reference Range Interpretation Comments TSH (test code = 2821) 0.5 UIU/ML [id number] 00:00:00 Test Item Value Reference Range Interpretation Comments TSH (test code = 2821) 0.5 UIU/ML [id number] 00:00:00 Test Item Value Reference Range Interpretation Comments TSH (test code = 2821) 0.5 UIU/ML HEPATITIS A IgM [REFLEX]2015-06-24 00:00:00 Test Item Value Reference Range Interpretation Comments HEPATITIS A IgM (test code = NON-REACTIVE 1708) CHLAMYDIA, AMPLIFIED, [id number] 00:00:00 Test Item Value Reference Range Interpretation Comments CHLAMYDIA, AMPLIFIED (test code = NEGATIVE 43453) CHLAMYDIA, AMPLIFIED, [id number] 00:00:00 Test Item Value Reference Range Interpretation Comments CHLAMYDIA, AMPLIFIED (test code = NEGATIVE 95743) GC, AMPLIFIED, [id number] 00:00:00 Test Item Value Reference Range Interpretation Comments GONORRHEA, AMPLIFIED (test code = NEGATIVE 71978) GC, AMPLIFIED, [id number] 00:00:00 Test Item Value Reference Range Interpretation Comments GONORRHEA, AMPLIFIED (test code = NEGATIVE 52809) HIV AB/AG COMBO RFLX [id number] 00:00:00 Test Item Value Reference Range Interpretation Comments HIV AB/AG COMBO RFLX CONF (test NON-REACTIVE code = 3514) HIV AB/AG COMBO RFLX [id number] 00:00:00 Test Item Value Reference Range Interpretation Comments HIV AB/AG COMBO RFLX CONF (test NON-REACTIVE code = 3514) [id number] 00:00:00 Test Item Value Reference Range Interpretation Comments RPR RESULT (test code = NON-REACTIVE 3501) RPR TITER (test code = 3500) NOT INDIC. TITER [id number] 00:00:00 Test Item Value Reference Range Interpretation Comments RPR RESULT (test code = NON-REACTIVE 3501) RPR TITER (test code = 3500) NOT INDIC. TITER [id number] 00:00:00 Test Item Value Reference Range Interpretation [...] INTERPRETATION HEPATITIS B: (NOTE) (test code = 73560) INTERPRETATION HEPATITIS C: (NOTE) (test code = 44947) HEPATITIS PROFILE (A,B,C)2015-06-24 00:00:00 Test Item Value [...] INTERPRETATION HEPATITIS B: (NOTE) (test code = 32331) INTERPRETATION HEPATITIS C: (NOTE) (test code = 52421) COMPREHENSIVE METABOLIC [id number] 00:00:00 Test Item Value Reference Range Interpretation Comments GLUCOSE (test code = 2217) 105 MG/DL BUN (test code = 2208) 11 MG/DL CREATININE (test code = 2214) 0.80 MG/DL eGFR AMER. (test code 109 ML/MIN/1.73 = 28900) eGFR NON- AMER. (test 94 ML/MIN/1.73 code = 41604) CALCULATED BUN/CREAT (test 14 RATIO code = [...] code = 2219) 14 U/L COMPREHENSIVE METABOLIC [id number] 00:00:00 Test Item Value Reference Range Interpretation Comments GLUCOSE (test code = 2217) 105 MG/DL BUN (test code = 2208) 11 MG/DL CREATININE (test code = 2214) 0.80 MG/DL eGFR AMER. (test code 109 ML/MIN/1.73 = 26409) eGFR NON- AMER. (test 94 ML/MIN/1.73 code = 65218) CALCULATED BUN/CREAT (test 14 RATIO code = 2235) SODIUM (test code = 2231) 139 MEQ/L POTASSIUM (test code = 2228) 3.8 MEQ/L CHLORIDE (test code = 2215) 102 MEQ/L CARBON DIOXIDE (test code = 22 MEQ/L 2205) CALCIUM (test code = 2209) 9.4 MG/DL PROTEIN, TOTAL (test code = 7.4 G/DL 9) ALBUMIN (test code = 2201) 4.4 G/DL CALCULATED GLOBULIN (test 3.0 G/DL code = 2240) CALCULATED A/G RATIO (test 1.5 RATIO code = 2234) BILIRUBIN, TOTAL (test code = 0.5 MG/DL 2206) ALKALINE PHOSPHATASE (test 36 U/L code = 2204) SGOT (AST) (test code = 2218) 14 U/L SGPT (ALT) (test code = 2219) 14 U/L LIPID [id number] 00:00:00 Test Item Value Reference Range Interpretation Comments CHOLESTEROL (test code = 2210) 211 MG/DL TRIGLYCERIDES (test code = 2232) 209 MG/DL HDL CHOLESTEROL (test code = 2220) 38 MG/DL CALCULATED LDL CHOL (test code = 131 MG/DL 2236) RISK RATIO LDL/HDL (test code = 3.45 RATIO 2238) LIPID [id number] 00:00:00 Test Item Value Reference Range Interpretation Comments CHOLESTEROL (test code = 2210) 211 MG/DL TRIGLYCERIDES (test code = 2232) 209 MG/DL HDL CHOLESTEROL (test code = 2220) 38 MG/DL CALCULATED LDL CHOL (test code = 131 MG/DL 7) RISK RATIO LDL/HDL (test code = 3.45 RATIO 2238) CBC W/AUTO [id number] 00:00:00 Test Item Value Reference Range Interpretation [...] code = 1015) 254 K/UL CBC W/AUTO [id number] 00:00:00 Test Item Value Reference Range Interpretation [...] code = 1015) 254 K/UL CBC W/AUTO [id number] 00:00:00 Test Item Value Reference Range Interpretation [...] (test code = 1015) 254 K/UL HEMOGLOBIN [id number] 00:00:00 Test Item Value Reference Range Interpretation Comments HEMOGLOBIN A1c (test code = 50355) 6.9 % HEMOGLOBIN [id number] 00:00:00 Test Item Value Reference Range Interpretation Comments HEMOGLOBIN A1c (test code = 98864) 6.9 % HEMOGLOBIN [id number] 00:00:00 Test Item Value Reference Range Interpretation Comments HEMOGLOBIN A1c (test code = 15817) 6.9 % [id number] 00:00:00 Test Item Value Reference Range Interpretation Comments TSH (test code = 2821) 0.5 UIU/ML [id number] 00:00:00 Test Item Value Reference Range Interpretation Comments TSH (test code = 2821) 0.5 UIU/ML [id number] 00:00:00 Test Item Value Reference Range Interpretation Comments TSH (test code = 2821) 0.5 UIU/ML HEPATITIS A IgM [REFLEX]2015-06-24 00:00:00 Test Item Value Reference Range Interpretation Comments HEPATITIS A IgM (test code = NON-REACTIVE 2728) CHLAMYDIA, AMPLIFIED, [id number] 00:00:00 Test Item Value Reference Range Interpretation Comments CHLAMYDIA, AMPLIFIED (test code = NEGATIVE 01301) CHLAMYDIA, AMPLIFIED, [id number] 00:00:00 Test Item Value Reference Range Interpretation Comments CHLAMYDIA, AMPLIFIED (test code = NEGATIVE 97084) GC, AMPLIFIED, [id number] 00:00:00 Test Item Value Reference Range Interpretation Comments GONORRHEA, AMPLIFIED (test code = NEGATIVE 61954) GC, AMPLIFIED, [id number] 00:00:00 Test Item Value Reference Range Interpretation Comments GONORRHEA, AMPLIFIED (test code = NEGATIVE 56498) HIV AB/AG COMBO RFLX [id number] 00:00:00 Test Item Value Reference Range Interpretation Comments HIV AB/AG COMBO RFLX CONF (test NON-REACTIVE code = 3514) HIV AB/AG COMBO RFLX [id number] 00:00:00 Test Item Value Reference Range Interpretation Comments HIV AB/AG COMBO RFLX CONF (test NON-REACTIVE code = 3514) [id number] 00:00:00 Test Item Value Reference Range Interpretation Comments RPR RESULT (test code = NON-REACTIVE 3501) RPR TITER (test code = 3500) NOT INDIC. TITER [id number] 00:00:00 Test Item Value Reference Range Interpretation Comments RPR RESULT (test code = NON-REACTIVE 3501) RPR TITER (test code = 3500) NOT INDIC. TITER [id number] 00:00:00 Test Item Value Reference Range Interpretation [...] INTERPRETATION HEPATITIS B: (NOTE) (test code = 01212) INTERPRETATION HEPATITIS C: (NOTE) (test code = 35510) HEPATITIS PROFILE (A,B,C)2015-06-24 00:00:00 Test Item Value [...] INTERPRETATION HEPATITIS B: (NOTE) (test code = 47375) INTERPRETATION HEPATITIS C: (NOTE) (test code = 10865) COMPREHENSIVE METABOLIC [id number] 00:00:00 Test Item Value Reference Range Interpretation Comments GLUCOSE (test code = 2217) 105 MG/DL BUN (test code = 2208) 11 MG/DL CREATININE (test code = 2214) 0.80 MG/DL eGFR AMER. (test code 109 ML/MIN/1.73 = 46190) eGFR NON- AMER. (test 94 ML/MIN/1.73 code = 52513) CALCULATED BUN/CREAT (test 14 RATIO code = [...] code = 2219) 14 U/L COMPREHENSIVE METABOLIC [id number] 00:00:00 Test Item Value Reference Range Interpretation Comments GLUCOSE (test code = 2217) 105 MG/DL BUN (test code = 2208) 11 MG/DL CREATININE (test code = 2214) 0.80 MG/DL eGFR AMER. (test code 109 ML/MIN/1.73 = 33213) eGFR NON- AMER. (test 94 ML/MIN/1.73 code = 34255) CALCULATED BUN/CREAT (test 14 RATIO code = [...] (test code = 2219) 14 U/L LIPID [id number] 00:00:00 Test Item Value Reference Range Interpretation Comments CHOLESTEROL (test code = 2210) 211 MG/DL TRIGLYCERIDES (test code = 2232) 209 MG/DL HDL CHOLESTEROL (test code = 2220) 38 MG/DL CALCULATED LDL CHOL (test code = 131 MG/DL 2236) RISK RATIO LDL/HDL (test code = 3.45 RATIO 2238) LIPID [id number] 00:00:00 Test Item Value Reference Range Interpretation Comments CHOLESTEROL (test code = 2210) 211 MG/DL TRIGLYCERIDES (test code = 2232) 209 MG/DL HDL CHOLESTEROL (test code = 2220) 38 MG/DL CALCULATED LDL CHOL (test code = 131 MG/DL 2237) RISK RATIO LDL/HDL (test code = 3.45 RATIO 2238) CBC W/AUTO [id number] 00:00:00 Test Item Value Reference Range Interpretation [...] code = 1015) 254 K/UL CBC W/AUTO [id number] 00:00:00 Test Item Value Reference Range Interpretation [...] code = 1015) 254 K/UL CBC W/AUTO [id number] 00:00:00 Test Item Value Reference Range Interpretation [...] (test code = 1015) 254 K/UL HEMOGLOBIN [id number] 00:00:00 Test Item Value Reference Range Interpretation Comments HEMOGLOBIN A1c (test code = 61819) 6.9 % HEMOGLOBIN [id number] 00:00:00 Test Item Value Reference Range Interpretation Comments HEMOGLOBIN A1c (test code = 65292) 6.9 % HEMOGLOBIN [id number] 00:00:00 Test Item Value Reference Range Interpretation Comments HEMOGLOBIN A1c (test code = 36889) 6.9 % [id number] 00:00:00 Test Item Value Reference Range Interpretation Comments TSH (test code = 2821) 0.5 UIU/ML [id number] 00:00:00 Test Item Value Reference Range Interpretation Comments TSH (test code = 2821) 0.5 UIU/ML [id number] 00:00:00 Test Item Value Reference Range Interpretation Comments TSH (test code = 2821) 0.5 UIU/ML HEPATITIS A IgM [REFLEX]2015-06-24 00:00:00 Test Item Value Reference Range Interpretation Comments HEPATITIS A IgM (test code = NON-REACTIVE 5578) CHLAMYDIA, AMPLIFIED, [id number] 00:00:00 Test Item Value Reference Range Interpretation Comments CHLAMYDIA, AMPLIFIED (test code = NEGATIVE 63572) CHLAMYDIA, AMPLIFIED, [id number] 00:00:00 Test Item Value Reference Range Interpretation Comments CHLAMYDIA, AMPLIFIED (test code = NEGATIVE 78208) GC, AMPLIFIED, [id number] 00:00:00 Test Item Value Reference Range Interpretation Comments GONORRHEA, AMPLIFIED (test code = NEGATIVE 49604) GC, AMPLIFIED, [id number] 00:00:00 Test Item Value Reference Range Interpretation Comments GONORRHEA, AMPLIFIED (test code = NEGATIVE 95492) HIV AB/AG COMBO RFLX [id number] 00:00:00 Test Item Value Reference Range Interpretation Comments HIV AB/AG COMBO RFLX CONF (test NON-REACTIVE code = 3514) HIV AB/AG COMBO RFLX [id number] 00:00:00 Test Item Value Reference Range Interpretation Comments HIV AB/AG COMBO RFLX CONF (test NON-REACTIVE code = 3514) [id number] 00:00:00 Test Item Value Reference Range Interpretation Comments RPR RESULT (test code = NON-REACTIVE 3501) RPR TITER (test code = 3500) NOT INDIC. TITER [id number] 00:00:00 Test Item Value Reference Range Interpretation Comments RPR RESULT (test code = NON-REACTIVE 3501) RPR TITER (test code = 3500) NOT INDIC. TITER [id number] 00:00:00 Test Item Value Reference Range Interpretation [...] INTERPRETATION HEPATITIS B: (NOTE) (test code = 80384) INTERPRETATION HEPATITIS C: (NOTE) (test code = 95801) HEPATITIS PROFILE (A,B,C)2015-06-24 00:00:00 Test Item Value [...] INTERPRETATION HEPATITIS B: (NOTE) (test code = 32112) INTERPRETATION HEPATITIS C: (NOTE) (test code = 51100) COMPREHENSIVE METABOLIC [id number] 00:00:00 Test Item Value Reference Range Interpretation Comments GLUCOSE (test code = 2217) 105 MG/DL BUN (test code = 2208) 11 MG/DL CREATININE (test code = 2214) 0.80 MG/DL eGFR AMER. (test code 109 ML/MIN/1.73 = 62770) eGFR NON- AMER. (test 94 ML/MIN/1.73 code = 76320) CALCULATED BUN/CREAT (test 14 RATIO code = [...] code = 2219) 14 U/L COMPREHENSIVE METABOLIC [id number] 00:00:00 Test Item Value Reference Range Interpretation Comments GLUCOSE (test code = 2217) 105 MG/DL BUN (test code = 2208) 11 MG/DL CREATININE (test code = 2214) 0.80 MG/DL eGFR AMER. (test code 109 ML/MIN/1.73 = 35393) eGFR NON- AMER. (test 94 ML/MIN/1.73 code = 95672) CALCULATED BUN/CREAT (test 14 RATIO code = [...] (test code = 2219) 14 U/L LIPID [id number] 00:00:00 Test Item Value Reference Range Interpretation Comments CHOLESTEROL (test code = 2210) 211 MG/DL TRIGLYCERIDES (test code = 2232) 209 MG/DL HDL CHOLESTEROL (test code = 2220) 38 MG/DL CALCULATED LDL CHOL (test code = 131 MG/DL 2237) RISK RATIO LDL/HDL (test code = 3.45 RATIO 2238) LIPID [id number] 00:00:00 Test Item Value Reference Range Interpretation Comments CHOLESTEROL (test code = 2210) 211 MG/DL TRIGLYCERIDES (test code = 2232) 209 MG/DL HDL CHOLESTEROL (test code = 2220) 38 MG/DL CALCULATED LDL CHOL (test code = 131 MG/DL 2237) RISK RATIO LDL/HDL (test code = 3.45 RATIO 2238) CBC W/AUTO [id number] 00:00:00 Test Item Value Reference Range Interpretation [...] code = 1015) 254 K/UL CBC W/AUTO [id number] 00:00:00 Test Item Value Reference Range Interpretation [...] code = 1015) 254 K/UL CBC W/AUTO [id number] 00:00:00 Test Item Value Reference Range Interpretation [...] (test code = 1015) 254 K/UL HEMOGLOBIN [id number] 00:00:00 Test Item Value Reference Range Interpretation Comments HEMOGLOBIN A1c (test code = 97396) 6.9 % HEMOGLOBIN [id number] 00:00:00 Test Item Value Reference Range Interpretation Comments HEMOGLOBIN A1c (test code = 15488) 6.9 % HEMOGLOBIN [id number] 00:00:00 Test Item Value Reference Range Interpretation Comments HEMOGLOBIN A1c (test code = 20821) 6.9 % [id number] 00:00:00 Test Item Value Reference Range Interpretation Comments TSH (test code = 2821) 0.5 UIU/ML [id number] 00:00:00 Test Item Value Reference Range Interpretation Comments TSH (test code = 2821) 0.5 UIU/ML [id number] 00:00:00 Test Item Value Reference Range Interpretation Comments TSH (test code = 2821) 0.5 UIU/ML HEPATITIS A IgM [REFLEX]2015-06-24 00:00:00 Test Item Value Reference Range Interpretation Comments HEPATITIS A IgM (test code = NON-REACTIVE 2728) CHLAMYDIA, AMPLIFIED, [id number] 00:00:00 Test Item Value Reference Range Interpretation Comments CHLAMYDIA, AMPLIFIED (test code = NEGATIVE 38362) CHLAMYDIA, AMPLIFIED, [id number] 00:00:00 Test Item Value Reference Range Interpretation Comments CHLAMYDIA, AMPLIFIED (test code = NEGATIVE 02305) GC, AMPLIFIED, [id number] 00:00:00 Test Item Value Reference Range Interpretation Comments GONORRHEA, AMPLIFIED (test code = NEGATIVE 78460) GC, AMPLIFIED, [id number] 00:00:00 Test Item Value Reference Range Interpretation Comments GONORRHEA, AMPLIFIED (test code = NEGATIVE 40877) HIV AB/AG COMBO RFLX [id number] 00:00:00 Test Item Value Reference Range Interpretation Comments HIV AB/AG COMBO RFLX CONF (test NON-REACTIVE code = 3514) HIV AB/AG COMBO RFLX [id number] 00:00:00 Test Item Value Reference Range Interpretation Comments HIV AB/AG COMBO RFLX CONF (test NON-REACTIVE code = 3514) [id number] 00:00:00 Test Item Value Reference Range Interpretation Comments RPR RESULT (test code = NON-REACTIVE 3501) RPR TITER (test code = 3500) NOT INDIC. TITER [id number] 00:00:00 Test Item Value Reference Range Interpretation Comments RPR RESULT (test code = NON-REACTIVE 3501) RPR TITER (test code = 3500) NOT INDIC. TITER [id number] 00:00:00 Test Item Value Reference Range Interpretation [...] INTERPRETATION HEPATITIS B: (NOTE) (test code = 10360) INTERPRETATION HEPATITIS C: (NOTE) (test code = 83732) HEPATITIS PROFILE (A,B,C)2015-06-24 00:00:00 Test Item Value [...] INTERPRETATION HEPATITIS B: (NOTE) (test code = 10994) INTERPRETATION HEPATITIS C: (NOTE) (test code = 85038) COMPREHENSIVE METABOLIC [id number] 00:00:00 Test Item Value Reference Range Interpretation Comments GLUCOSE (test code = 2217) 105 MG/DL BUN (test code = 2208) 11 MG/DL CREATININE (test code = 2214) 0.80 MG/DL eGFR AMER. (test code 109 ML/MIN/1.73 = 56470) eGFR NON- AMER. (test 94 ML/MIN/1.73 code = 30692) CALCULATED BUN/CREAT (test 14 RATIO code = [...] code = 2219) 14 U/L COMPREHENSIVE METABOLIC [id number] 00:00:00 Test Item Value Reference Range Interpretation Comments GLUCOSE (test code = 2217) 105 MG/DL BUN (test code = 2208) 11 MG/DL CREATININE (test code = 2214) 0.80 MG/DL eGFR AMER. (test code 109 ML/MIN/1.73 = 83926) eGFR NON- AMER. (test 94 ML/MIN/1.73 code = 10862) CALCULATED BUN/CREAT (test 14 RATIO code = [...] (test code = 2219) 14 U/L LIPID [id number] 00:00:00 Test Item Value Reference Range Interpretation Comments CHOLESTEROL (test code = 2210) 211 MG/DL TRIGLYCERIDES (test code = 2232) 209 MG/DL HDL CHOLESTEROL (test code = 2220) 38 MG/DL CALCULATED LDL CHOL (test code = 131 MG/DL 2236) RISK RATIO LDL/HDL (test code = 3.45 RATIO 2238) LIPID [id number] 00:00:00 Test Item Value Reference Range Interpretation Comments CHOLESTEROL (test code = 2210) 211 MG/DL TRIGLYCERIDES (test code = 2232) 209 MG/DL HDL CHOLESTEROL (test code = 2220) 38 MG/DL CALCULATED LDL CHOL (test code = 131 MG/DL 2236) RISK RATIO LDL/HDL (test code = 3.45 RATIO 8) CBC W/AUTO [id number] 00:00:00 Test Item Value Reference Range Interpretation [...] code = 1015) 254 K/UL CBC W/AUTO [id number] 00:00:00 Test Item Value Reference Range Interpretation [...] code = 1015) 254 K/UL CBC W/AUTO [id number] 00:00:00 Test Item Value Reference Range Interpretation [...] (test code = 1015) 254 K/UL HEMOGLOBIN [id number] 00:00:00 Test Item Value Reference Range Interpretation Comments HEMOGLOBIN A1c (test code = 45357) 6.9 % HEMOGLOBIN [id number] 00:00:00 Test Item Value Reference Range Interpretation Comments HEMOGLOBIN A1c (test code = 08690) 6.9 % HEMOGLOBIN [id number] 00:00:00 Test Item Value Reference Range Interpretation Comments HEMOGLOBIN A1c (test code = 55356) 6.9 % [id number] 00:00:00 Test Item Value Reference Range Interpretation Comments TSH (test code = 2821) 0.5 UIU/ML [id number] 00:00:00 Test Item Value Reference Range Interpretation Comments TSH (test code = 2821) 0.5 UIU/ML [id number] 00:00:00 Test Item Value Reference Range Interpretation Comments TSH (test code = 2821) 0.5 UIU/ML HEPATITIS A IgM [REFLEX]2015-06-24 00:00:00 Test Item Value Reference Range Interpretation Comments HEPATITIS A IgM (test code = NON-REACTIVE 2608) CHLAMYDIA, AMPLIFIED, [id number] 00:00:00 Test Item Value Reference Range Interpretation Comments CHLAMYDIA, AMPLIFIED (test code = NEGATIVE 25497) CHLAMYDIA, AMPLIFIED, [id number] 00:00:00 Test Item Value Reference Range Interpretation Comments CHLAMYDIA, AMPLIFIED (test code = NEGATIVE 04490) GC, AMPLIFIED, [id number] 00:00:00 Test Item Value Reference Range Interpretation Comments GONORRHEA, AMPLIFIED (test code = NEGATIVE 17090) GC, AMPLIFIED, [id number] 00:00:00 Test Item Value Reference Range Interpretation Comments GONORRHEA, AMPLIFIED (test code = NEGATIVE 30245) HIV AB/AG COMBO RFLX [id number] 00:00:00 Test Item Value Reference Range Interpretation Comments HIV AB/AG COMBO RFLX CONF (test NON-REACTIVE code = 3514) HIV AB/AG COMBO RFLX [id number] 00:00:00 Test Item Value Reference Range Interpretation Comments HIV AB/AG COMBO RFLX CONF (test NON-REACTIVE code = 3514) [id number] 00:00:00 Test Item Value Reference Range Interpretation Comments RPR RESULT (test code = NON-REACTIVE 3501) RPR TITER (test code = 3500) NOT INDIC. TITER [id number] 00:00:00 Test Item Value Reference Range Interpretation Comments RPR RESULT (test code = NON-REACTIVE 3501) RPR TITER (test code = 3500) NOT INDIC. TITER [id number] 00:00:00 Test Item Value Reference Range Interpretation [...] INTERPRETATION HEPATITIS B: (NOTE) (test code = 05878) INTERPRETATION HEPATITIS C: (NOTE) (test code = 61780) HEPATITIS PROFILE (A,B,C)2015-06-24 00:00:00 Test Item Value [...] INTERPRETATION HEPATITIS B: (NOTE) (test code = 73589) INTERPRETATION HEPATITIS C: (NOTE) (test code = 62154) COMPREHENSIVE METABOLIC [id number] 00:00:00 Test Item Value Reference Range Interpretation Comments GLUCOSE (test code = 2217) 105 MG/DL BUN (test code = 2208) 11 MG/DL CREATININE (test code = 2214) 0.80 MG/DL eGFR AMER. (test code 109 ML/MIN/1.73 = 89999) eGFR NON- AMER. (test 94 ML/MIN/1.73 code = 94957) CALCULATED BUN/CREAT (test 14 RATIO code = [...] code = 2219) 14 U/L COMPREHENSIVE METABOLIC [id number] 00:00:00 Test Item Value Reference Range Interpretation Comments GLUCOSE (test code = 2217) 105 MG/DL BUN (test code = 2208) 11 MG/DL CREATININE (test code = 2214) 0.80 MG/DL eGFR AMER. (test code 109 ML/MIN/1.73 = 09994) eGFR NON- AMER. (test 94 ML/MIN/1.73 code = 85583) CALCULATED BUN/CREAT (test 14 RATIO code = [...] (test code = 2219) 14 U/L LIPID [id number] 00:00:00 Test Item Value Reference Range Interpretation Comments CHOLESTEROL (test code = 2210) 211 MG/DL TRIGLYCERIDES (test code = 2232) 209 MG/DL HDL CHOLESTEROL (test code = 2220) 38 MG/DL CALCULATED LDL CHOL (test code = 131 MG/DL 2237) RISK RATIO LDL/HDL (test code = 3.45 RATIO 2238) LIPID [id number] 00:00:00 Test Item Value Reference Range Interpretation Comments CHOLESTEROL (test code = 2210) 211 MG/DL TRIGLYCERIDES (test code = 2232) 209 MG/DL HDL CHOLESTEROL (test code = 2220) 38 MG/DL CALCULATED LDL CHOL (test code = 131 MG/DL 2237) RISK RATIO LDL/HDL (test code = 3.45 RATIO 2238) CBC W/AUTO [id number] 00:00:00 Test Item Value Reference Range Interpretation [...] code = 1015) 254 K/UL CBC W/AUTO [id number] 00:00:00 Test Item Value Reference Range Interpretation [...] code = 1015) 254 K/UL CBC W/AUTO [id number] 00:00:00 Test Item Value Reference Range Interpretation [...] (test code = 1015) 254 K/UL HEMOGLOBIN [id number] 00:00:00 Test Item Value Reference Range Interpretation Comments HEMOGLOBIN A1c (test code = 87488) 6.9 % HEMOGLOBIN [id number] 00:00:00 Test Item Value Reference Range Interpretation Comments HEMOGLOBIN A1c (test code = 74031) 6.9 % HEMOGLOBIN [id number] 00:00:00 Test Item Value Reference Range Interpretation Comments HEMOGLOBIN A1c (test code = 50818) 6.9 % [id number] 00:00:00 Test Item Value Reference Range Interpretation Comments TSH (test code = 2821) 0.5 UIU/ML [id number] 00:00:00 Test Item Value Reference Range Interpretation Comments TSH (test code = 2821) 0.5 UIU/ML [id number] 00:00:00 Test Item Value Reference Range Interpretation Comments TSH (test code = 2821) 0.5 UIU/ML HEPATITIS A IgM [REFLEX]2015-06-24 00:00:00 Test Item Value Reference Range Interpretation Comments HEPATITIS A IgM (test code = NON-REACTIVE 2728) CHLAMYDIA, AMPLIFIED, [id number] 00:00:00 Test Item Value Reference Range Interpretation Comments CHLAMYDIA, AMPLIFIED (test code = NEGATIVE 72914) GC, AMPLIFIED, [id number] 00:00:00 Test Item Value Reference Range Interpretation Comments GONORRHEA, AMPLIFIED (test code = NEGATIVE 33242) HIV AB/AG COMBO RFLX [id number] 00:00:00 Test Item Value Reference Range Interpretation Comments HIV AB/AG COMBO RFLX CONF (test NON-REACTIVE code = 3514) [id number] 00:00:00 Test Item Value Reference Range Interpretation Comments RPR RESULT (test code = NON-REACTIVE 3501) RPR TITER (test code = 3500) NOT INDIC. TITER CHLAMYDIA, AMPLIFIED, [id number] 00:00:00 Test Item Value Reference Range Interpretation Comments CHLAMYDIA, AMPLIFIED (test code = NEGATIVE 43318) [id number] 00:00:00 Test Item Value Reference Range Interpretation Comments RPR RESULT (test code = NON-REACTIVE 3501) RPR TITER (test code = 3500) NOT INDIC. TITER CHLAMYDIA, AMPLIFIED, [id number] 00:00:00 Test Item Value Reference Range Interpretation Comments CHLAMYDIA, AMPLIFIED (test code = NEGATIVE 86311) GC, AMPLIFIED, [id number] 00:00:00 Test Item Value Reference Range Interpretation Comments GONORRHEA, AMPLIFIED (test code = NEGATIVE 09056) GC, AMPLIFIED, [id number] 00:00:00 Test Item Value Reference Range Interpretation Comments GONORRHEA, AMPLIFIED (test code = NEGATIVE 95208) HIV AB/AG COMBO RFLX [id number] 00:00:00 Test Item Value Reference Range Interpretation Comments HIV AB/AG COMBO RFLX CONF (test NON-REACTIVE code = 3514) HIV AB/AG COMBO RFLX [id number] 00:00:00 Test Item Value Reference Range Interpretation Comments HIV AB/AG COMBO RFLX CONF (test NON-REACTIVE code = 3514) [id number] 00:00:00 Test Item Value Reference Range Interpretation Comments RPR RESULT (test code = NON-REACTIVE 3501) RPR TITER (test code = 3500) NOT INDIC. TITER [id number] 00:00:00 Test Item Value Reference Range Interpretation Comments RPR RESULT (test code = NON-REACTIVE 3501) RPR TITER (test code = 3500) NOT INDIC. TITER [id number] 00:00:00 Test Item Value Reference Range Interpretation [...] INTERPRETATION HEPATITIS B: (NOTE) (test code = 62675) INTERPRETATION HEPATITIS C: (NOTE) (test code = 33604) HEPATITIS PROFILE (A,B,C)2015-06-24 00:00:00 Test Item Value [...] INTERPRETATION HEPATITIS B: (NOTE) (test code = 55402) INTERPRETATION HEPATITIS C: (NOTE) (test code = 94285) HEPATITIS PROFILE (A,B,C)2015-06-24 00:00:00 Test Item Value [...] INTERPRETATION HEPATITIS B: (NOTE) (test code = 95455) INTERPRETATION HEPATITIS C: (NOTE) (test code = 84911) COMPREHENSIVE METABOLIC [id number] 00:00:00 Test Item Value Reference Range Interpretation Comments GLUCOSE (test code = 2217) 105 MG/DL BUN (test code = 2208) 11 MG/DL CREATININE (test code = 2214) 0.80 MG/DL eGFR AMER. (test code 109 ML/MIN/1.73 = 69137) eGFR NON- AMER. (test 94 ML/MIN/1.73 code = 48536) CALCULATED BUN/CREAT (test 14 RATIO code = [...] code = 2219) 14 U/L COMPREHENSIVE METABOLIC [id number] 00:00:00 Test Item Value Reference Range Interpretation Comments GLUCOSE (test code = 2217) 105 MG/DL BUN (test code = 2208) 11 MG/DL CREATININE (test code = 2214) 0.80 MG/DL eGFR AMER. (test code 109 ML/MIN/1.73 = 71571) eGFR NON- AMER. (test 94 ML/MIN/1.73 code = 80629) CALCULATED BUN/CREAT (test 14 RATIO code = [...] (test code = 2219) 14 U/L LIPID [id number] 00:00:00 Test Item Value Reference Range Interpretation Comments CHOLESTEROL (test code = 2210) 211 MG/DL TRIGLYCERIDES (test code = 2232) 209 MG/DL HDL CHOLESTEROL (test code = 2220) 38 MG/DL CALCULATED LDL CHOL (test code = 131 MG/DL 2237) RISK RATIO LDL/HDL (test code = 3.45 RATIO 2238) LIPID [id number] 00:00:00 Test Item Value Reference Range Interpretation Comments CHOLESTEROL (test code = 2210) 211 MG/DL TRIGLYCERIDES (test code = 2232) 209 MG/DL HDL CHOLESTEROL (test code = 2220) 38 MG/DL CALCULATED LDL CHOL (test code = 131 MG/DL 2237) RISK RATIO LDL/HDL (test code = 3.45 RATIO 2238) CBC W/AUTO [id number] 00:00:00 Test Item Value Reference Range Interpretation [...] code = 1015) 254 K/UL CBC W/AUTO [id number] 00:00:00 Test Item Value Reference Range Interpretation [...] code = 1015) 254 K/UL CBC W/AUTO [id number] 00:00:00 Test Item Value Reference Range Interpretation [...] (test code = 1015) 254 K/UL HEMOGLOBIN [id number] 00:00:00 Test Item Value Reference Range Interpretation Comments HEMOGLOBIN A1c (test code = 70867) 6.9 % HEMOGLOBIN [id number] 00:00:00 Test Item Value Reference Range Interpretation Comments HEMOGLOBIN A1c (test code = 61244) 6.9 % HEMOGLOBIN [id number] 00:00:00 Test Item Value Reference Range Interpretation Comments HEMOGLOBIN A1c (test code = 78050) 6.9 % [id number] 00:00:00 Test Item Value Reference Range Interpretation Comments TSH (test code = 2821) 0.5 UIU/ML [id number] 00:00:00 Test Item Value Reference Range Interpretation Comments TSH (test code = 2821) 0.5 UIU/ML [id number] 00:00:00 Test Item Value Reference Range Interpretation Comments TSH (test code = 2821) 0.5 UIU/ML HEPATITIS A IgM [REFLEX]2015-06-24 00:00:00 Test Item Value Reference Range Interpretation Comments HEPATITIS A IgM (test code = NON-REACTIVE 2727) COMPREHENSIVE METABOLIC [id number] 00:00:00 Test Item Value Reference Range Interpretation Comments GLUCOSE (test code = 2217) 105 MG/DL BUN (test code = 2208) 11 MG/DL CREATININE (test code = 2214) 0.80 MG/DL eGFR AMER. (test code 109 ML/MIN/1.73 = 56448) eGFR NON- AMER. (test 94 ML/MIN/1.73 code = 08299) CALCULATED BUN/CREAT (test 14 RATIO code = [...] (test code = 2219) 14 U/L LIPID [id number] 00:00:00 Test Item Value Reference Range Interpretation Comments CHOLESTEROL (test code = 2210) 211 MG/DL TRIGLYCERIDES (test code = 2232) 209 MG/DL HDL CHOLESTEROL (test code = 2220) 38 MG/DL CALCULATED LDL CHOL (test code = 131 MG/DL 7) RISK RATIO LDL/HDL (test code = 3.45 RATIO 2238) CBC W/AUTO [id number] 00:00:00 Test Item Value Reference Range Interpretation [...] code = 1015) 254 K/UL CBC W/AUTO [id number] 00:00:00 Test Item Value Reference Range Interpretation [...] (test code = 1015) 254 K/UL HEMOGLOBIN [id number] 00:00:00 Test Item Value Reference Range Interpretation Comments HEMOGLOBIN A1c (test code = 98572) 6.9 % HEMOGLOBIN [id number] 00:00:00 Test Item Value Reference Range Interpretation Comments HEMOGLOBIN A1c (test code = 98207) 6.9 % [id number] 00:00:00 Test Item Value Reference Range Interpretation Comments TSH (test code = 2821) 0.5 UIU/ML [id number] 00:00:00 Test Item Value Reference Range Interpretation Comments TSH (test code = 2821) 0.5 UIU/ML HEPATITIS A IgM [REFLEX]2015-06-24 00:00:00 Test Item Value Reference Range Interpretation Comments HEPATITIS A IgM (test code = NON-REACTIVE 8) CHLAMYDIA, AMPLIFIED, [id number] 00:00:00 Test Item Value Reference Range Interpretation Comments CHLAMYDIA, AMPLIFIED (test code = NEGATIVE 59027) CHLAMYDIA, AMPLIFIED, [id number] 00:00:00 Test Item Value Reference Range Interpretation Comments CHLAMYDIA, AMPLIFIED (test code = NEGATIVE 78028) GC, AMPLIFIED, [id number] 00:00:00 Test Item Value Reference Range Interpretation Comments GONORRHEA, AMPLIFIED (test code = NEGATIVE 42242) GC, AMPLIFIED, [id number] 00:00:00 Test Item Value Reference Range Interpretation Comments GONORRHEA, AMPLIFIED (test code = NEGATIVE 25687) HIV AB/AG COMBO RFLX [id number] 00:00:00 Test Item Value Reference Range Interpretation Comments HIV AB/AG COMBO RFLX CONF (test NON-REACTIVE code = 3514) HIV AB/AG COMBO RFLX [id number] 00:00:00 Test Item Value Reference Range Interpretation Comments HIV AB/AG COMBO RFLX CONF (test NON-REACTIVE code = 3514) [id number] 00:00:00 Test Item Value Reference Range Interpretation Comments RPR RESULT (test code = NON-REACTIVE 3501) RPR TITER (test code = 3500) NOT INDIC. TITER [id number] 00:00:00 Test Item Value Reference Range Interpretation Comments RPR RESULT (test code = NON-REACTIVE 3501) RPR TITER (test code = 3500) NOT INDIC. TITER [id number] 00:00:00 Test Item Value Reference Range Interpretation [...] INTERPRETATION HEPATITIS B: (NOTE) (test code = 65155) INTERPRETATION HEPATITIS C: (NOTE) (test code = 12738) HEPATITIS PROFILE (A,B,C)2015-06-24 00:00:00 Test Item Value [...] INTERPRETATION HEPATITIS B: (NOTE) (test code = 59443) INTERPRETATION HEPATITIS C: (NOTE) (test code = 37193) COMPREHENSIVE METABOLIC [id number] 00:00:00 Test Item Value Reference Range Interpretation Comments GLUCOSE (test code = 2217) 105 MG/DL BUN (test code = 2208) 11 MG/DL CREATININE (test code = 2214) 0.80 MG/DL eGFR AMER. (test code 109 ML/MIN/1.73 = 45340) eGFR NON- AMER. (test 94 ML/MIN/1.73 code = 12317) CALCULATED BUN/CREAT (test 14 RATIO code = [...] code = 2219) 14 U/L COMPREHENSIVE METABOLIC [id number] 00:00:00 Test Item Value Reference Range Interpretation Comments GLUCOSE (test code = 2217) 105 MG/DL BUN (test code = 2208) 11 MG/DL CREATININE (test code = 2214) 0.80 MG/DL eGFR AMER. (test code 109 ML/MIN/1.73 = 20008) eGFR NON- AMER. (test 94 ML/MIN/1.73 code = 14774) CALCULATED BUN/CREAT (test 14 RATIO code = [...] (test code = 2219) 14 U/L LIPID [id number] 00:00:00 Test Item Value Reference Range Interpretation Comments CHOLESTEROL (test code = 2210) 211 MG/DL TRIGLYCERIDES (test code = 2232) 209 MG/DL HDL CHOLESTEROL (test code = 2220) 38 MG/DL CALCULATED LDL CHOL (test code = 131 MG/DL 2236) RISK RATIO LDL/HDL (test code = 3.45 RATIO 2238) LIPID [id number] 00:00:00 Test Item Value Reference Range Interpretation Comments CHOLESTEROL (test code = 2210) 211 MG/DL TRIGLYCERIDES (test code = 2232) 209 MG/DL HDL CHOLESTEROL (test code = 2220) 38 MG/DL CALCULATED LDL CHOL (test code = 131 MG/DL 2236) RISK RATIO LDL/HDL (test code = 3.45 RATIO 2238) CBC W/AUTO [id number] 00:00:00 Test Item Value Reference Range Interpretation [...] code = 1015) 254 K/UL CBC W/AUTO [id number] 00:00:00 Test Item Value Reference Range Interpretation [...] code = 1015) 254 K/UL CBC W/AUTO [id number] 00:00:00 Test Item Value Reference Range Interpretation [...] (test code = 1015) 254 K/UL HEMOGLOBIN [id number] 00:00:00 Test Item Value Reference Range Interpretation Comments HEMOGLOBIN A1c (test code = 00333) 6.9 % HEMOGLOBIN [id number] 00:00:00 Test Item Value Reference Range Interpretation Comments HEMOGLOBIN A1c (test code = 23725) 6.9 % HEMOGLOBIN [id number] 00:00:00 Test Item Value Reference Range Interpretation Comments HEMOGLOBIN A1c (test code = 84367) 6.9 % [id number] 00:00:00 Test Item Value Reference Range Interpretation Comments TSH (test code = 2821) 0.5 UIU/ML [id number] 00:00:00 Test Item Value Reference Range Interpretation Comments TSH (test code = 2821) 0.5 UIU/ML [id number] 00:00:00 Test Item Value Reference Range Interpretation Comments TSH (test code = 2821) 0.5 UIU/ML HEPATITIS A IgM [REFLEX]2015-06-24 00:00:00 Test Item Value Reference Range Interpretation Comments HEPATITIS A IgM (test code = NON-REACTIVE 2728) CHLAMYDIA, AMPLIFIED, [id number] 00:00:00 Test Item Value Reference Range Interpretation Comments CHLAMYDIA, AMPLIFIED (test code = NEGATIVE 34290) CHLAMYDIA, AMPLIFIED, [id number] 00:00:00 Test Item Value Reference Range Interpretation Comments CHLAMYDIA, AMPLIFIED (test code = NEGATIVE 60078) GC, AMPLIFIED, [id number] 00:00:00 Test Item Value Reference Range Interpretation Comments GONORRHEA, AMPLIFIED (test code = NEGATIVE 18595) GC, AMPLIFIED, [id number] 00:00:00 Test Item Value Reference Range Interpretation Comments GONORRHEA, AMPLIFIED (test code = NEGATIVE 07856) HIV AB/AG COMBO RFLX [id number] 00:00:00 Test Item Value Reference Range Interpretation Comments HIV AB/AG COMBO RFLX CONF (test NON-REACTIVE code = 3514) HIV AB/AG COMBO RFLX [id number] 00:00:00 Test Item Value Reference Range Interpretation Comments HIV AB/AG COMBO RFLX CONF (test NON-REACTIVE code = 3514) [id number] 00:00:00 Test Item Value Reference Range Interpretation Comments RPR RESULT (test code = NON-REACTIVE 3501) RPR TITER (test code = 3500) NOT INDIC. TITER [id number] 00:00:00 Test Item Value Reference Range Interpretation Comments RPR RESULT (test code = NON-REACTIVE 3501) RPR TITER (test code = 3500) NOT INDIC. TITER [id number] 00:00:00 Test Item Value Reference Range Interpretation [...] INTERPRETATION HEPATITIS B: (NOTE) (test code = 30736) INTERPRETATION HEPATITIS C: (NOTE) (test code = 93814) HEPATITIS PROFILE (A,B,C)2015-06-24 00:00:00 Test Item Value [...] INTERPRETATION HEPATITIS B: (NOTE) (test code = 17489) INTERPRETATION HEPATITIS C: (NOTE) (test code = 69362) COMPREHENSIVE METABOLIC [id number] 00:00:00 Test Item Value Reference Range Interpretation Comments GLUCOSE (test code = 2217) 105 MG/DL BUN (test code = 2208) 11 MG/DL CREATININE (test code = 2214) 0.80 MG/DL eGFR AMER. (test code 109 ML/MIN/1.73 = 63843) eGFR NON- AMER. (test 94 ML/MIN/1.73 code = 81323) CALCULATED BUN/CREAT (test 14 RATIO code = [...] code = 2219) 14 U/L COMPREHENSIVE METABOLIC [id number] 00:00:00 Test Item Value Reference Range Interpretation Comments GLUCOSE (test code = 2217) 105 MG/DL BUN (test code = 2208) 11 MG/DL CREATININE (test code = 2214) 0.80 MG/DL eGFR AMER. (test code 109 ML/MIN/1.73 = 20674) eGFR NON- AMER. (test 94 ML/MIN/1.73 code = 63234) CALCULATED BUN/CREAT (test 14 RATIO code = [...] (test code = 2219) 14 U/L LIPID [id number] 00:00:00 Test Item Value Reference Range Interpretation Comments CHOLESTEROL (test code = 2210) 211 MG/DL TRIGLYCERIDES (test code = 2232) 209 MG/DL HDL CHOLESTEROL (test code = 2220) 38 MG/DL CALCULATED LDL CHOL (test code = 131 MG/DL 2237) RISK RATIO LDL/HDL (test code = 3.45 RATIO 2238) LIPID [id number] 00:00:00 Test Item Value Reference Range Interpretation Comments CHOLESTEROL (test code = 2210) 211 MG/DL TRIGLYCERIDES (test code = 2232) 209 MG/DL HDL CHOLESTEROL (test code = 2220) 38 MG/DL CALCULATED LDL CHOL (test code = 131 MG/DL 2237) RISK RATIO LDL/HDL (test code = 3.45 RATIO 2238) CBC W/AUTO [id number] 00:00:00 Test Item Value Reference Range Interpretation [...] code = 1015) 254 K/UL CBC W/AUTO [id number] 00:00:00 Test Item Value Reference Range Interpretation [...] code = 1015) 254 K/UL CBC W/AUTO [id number] 00:00:00 Test Item Value Reference Range Interpretation [...] (test code = 1015) 254 K/UL HEMOGLOBIN [id number] 00:00:00 Test Item Value Reference Range Interpretation Comments HEMOGLOBIN A1c (test code = 72427) 6.9 % HEMOGLOBIN [id number] 00:00:00 Test Item Value Reference Range Interpretation Comments HEMOGLOBIN A1c (test code = 75557) 6.9 % HEMOGLOBIN [id number] 00:00:00 Test Item Value Reference Range Interpretation Comments HEMOGLOBIN A1c (test code = 63634) 6.9 % [id number] 00:00:00 Test Item Value Reference Range Interpretation Comments TSH (test code = 2821) 0.5 UIU/ML [id number] 00:00:00 Test Item Value Reference Range Interpretation Comments TSH (test code = 2821) 0.5 UIU/ML [id number] 00:00:00 Test Item Value Reference Range Interpretation Comments TSH (test code = 2821) 0.5 UIU/ML HEPATITIS A IgM [REFLEX]2015-06-24 00:00:00 Test Item Value Reference Range Interpretation Comments HEPATITIS A IgM (test code = NON-REACTIVE 8) COMPREHENSIVE METABOLIC [id number] 00:00:00 Test Item Value Reference Range Interpretation Comments GLUCOSE (test code = 2217) 113 MG/DL BUN (test code = 2208) 22 MG/DL CREATININE (test code = 2214) 0.9 MG/DL eGFR AMER. (test code 85 ML/MIN/1.73 = 11365) eGFR NON- AMER. (test 70 ML/MIN/1.73 code = 88280) CALCULATED BUN/CREAT (test 24 RATIO code = [...] code = 2219) 24 U/L COMPREHENSIVE METABOLIC [id number] 00:00:00 Test Item Value Reference Range Interpretation Comments GLUCOSE (test code = 2217) 113 MG/DL BUN (test code = 2208) 22 MG/DL CREATININE (test code = 2214) 0.9 MG/DL eGFR AMER. (test code 85 ML/MIN/1.73 = 50051) eGFR NON- AMER. (test 70 ML/MIN/1.73 code = 45488) CALCULATED BUN/CREAT (test 24 RATIO code = [...] code = 2219) 24 U/L CBC W/AUTO [id number] 00:00:00 Test Item Value Reference Range Interpretation [...] code = 1015) 270 K/UL CBC W/AUTO [id number] 00:00:00 Test Item Value Reference Range Interpretation [...] code = 1015) 270 K/UL CBC W/AUTO [id number] 00:00:00 Test Item Value Reference Range Interpretation [...] (test code = 1015) 270 K/UL HEMOGLOBIN [id number] 00:00:00 Test Item Value Reference Range Interpretation Comments HEMOGLOBIN A1c (test code = 18029) 7.3 % HEMOGLOBIN [id number] 00:00:00 Test Item Value Reference Range Interpretation Comments HEMOGLOBIN A1c (test code = 72293) 7.3 % HEMOGLOBIN [id number] 00:00:00 Test Item Value Reference Range Interpretation Comments HEMOGLOBIN A1c (test code = 59170) 7.3 % COMPREHENSIVE METABOLIC [id number] 00:00:00 Test Item Value Reference Range Interpretation Comments GLUCOSE (test code = 2217) 113 MG/DL BUN (test code = 2208) 22 MG/DL CREATININE (test code = 2214) 0.9 MG/DL eGFR AMER. (test code 85 ML/MIN/1.73 = 29216) eGFR NON- AMER. (test 70 ML/MIN/1.73 code = 93576) CALCULATED BUN/CREAT (test 24 RATIO code = [...] code = 2219) 24 U/L COMPREHENSIVE METABOLIC [id number] 00:00:00 Test Item Value Reference Range Interpretation Comments GLUCOSE (test code = 2217) 113 MG/DL BUN (test code = 2208) 22 MG/DL CREATININE (test code = 2214) 0.9 MG/DL eGFR AMER. (test code 85 ML/MIN/1.73 = 08786) eGFR NON- AMER. (test 70 ML/MIN/1.73 code = 11615) CALCULATED BUN/CREAT (test 24 RATIO code = [...] code = 2219) 24 U/L CBC W/AUTO [id number] 00:00:00 Test Item Value Reference Range Interpretation [...] code = 1015) 270 K/UL CBC W/AUTO [id number] 00:00:00 Test Item Value Reference Range Interpretation [...] code = 1015) 270 K/UL CBC W/AUTO [id number] 00:00:00 Test Item Value Reference Range Interpretation [...] (test code = 1015) 270 K/UL HEMOGLOBIN [id number] 00:00:00 Test Item Value Reference Range Interpretation Comments HEMOGLOBIN A1c (test code = 38176) 7.3 % HEMOGLOBIN [id number] 00:00:00 Test Item Value Reference Range Interpretation Comments HEMOGLOBIN A1c (test code = 52387) 7.3 % HEMOGLOBIN [id number] 00:00:00 Test Item Value Reference Range Interpretation Comments HEMOGLOBIN A1c (test code = 43004) 7.3 % COMPREHENSIVE METABOLIC [id number] 00:00:00 Test Item Value Reference Range Interpretation Comments GLUCOSE (test code = 2217) 113 MG/DL BUN (test code = 2208) 22 MG/DL CREATININE (test code = 2214) 0.9 MG/DL eGFR AMER. (test code 85 ML/MIN/1.73 = 84362) eGFR NON- AMER. (test 70 ML/MIN/1.73 code = 26579) CALCULATED BUN/CREAT (test 24 RATIO code = [...] code = 2219) 24 U/L COMPREHENSIVE METABOLIC [id number] 00:00:00 Test Item Value Reference Range Interpretation Comments GLUCOSE (test code = 2217) 113 MG/DL BUN (test code = 2208) 22 MG/DL CREATININE (test code = 2214) 0.9 MG/DL eGFR AMER. (test code 85 ML/MIN/1.73 = 17228) eGFR NON- AMER. (test 70 ML/MIN/1.73 code = 49644) CALCULATED BUN/CREAT (test 24 RATIO code = [...] code = 2219) 24 U/L CBC W/AUTO [id number] 00:00:00 Test Item Value Reference Range Interpretation [...] code = 1015) 270 K/UL CBC W/AUTO [id number] 00:00:00 Test Item Value Reference Range Interpretation [...] code = 1015) 270 K/UL CBC W/AUTO [id number] 00:00:00 Test Item Value Reference Range Interpretation [...] (test code = 1015) 270 K/UL HEMOGLOBIN [id number] 00:00:00 Test Item Value Reference Range Interpretation Comments HEMOGLOBIN A1c (test code = 26247) 7.3 % HEMOGLOBIN [id number] 00:00:00 Test Item Value Reference Range Interpretation Comments HEMOGLOBIN A1c (test code = 27732) 7.3 % HEMOGLOBIN [id number] 00:00:00 Test Item Value Reference Range Interpretation Comments HEMOGLOBIN A1c (test code = 26774) 7.3 % COMPREHENSIVE METABOLIC [id number] 00:00:00 Test Item Value Reference Range Interpretation Comments GLUCOSE (test code = 2217) 113 MG/DL BUN (test code = 2208) 22 MG/DL CREATININE (test code = 2214) 0.9 MG/DL eGFR AMER. (test code 85 ML/MIN/1.73 = 05694) eGFR NON- AMER. (test 70 ML/MIN/1.73 code = 35434) CALCULATED BUN/CREAT (test 24 RATIO code = [...] code = 2219) 24 U/L COMPREHENSIVE METABOLIC [id number] 00:00:00 Test Item Value Reference Range Interpretation Comments GLUCOSE (test code = 2217) 113 MG/DL BUN (test code = 2208) 22 MG/DL CREATININE (test code = 2214) 0.9 MG/DL eGFR AMER. (test code 85 ML/MIN/1.73 = 47771) eGFR NON- AMER. (test 70 ML/MIN/1.73 code = 31379) CALCULATED BUN/CREAT (test 24 RATIO code = [...] code = 2219) 24 U/L CBC W/AUTO [id number] 00:00:00 Test Item Value Reference Range Interpretation [...] code = 1015) 270 K/UL CBC W/AUTO [id number] 00:00:00 Test Item Value Reference Range Interpretation [...] code = 1015) 270 K/UL CBC W/AUTO [id number] 00:00:00 Test Item Value Reference Range Interpretation [...] (test code = 1015) 270 K/UL HEMOGLOBIN [id number] 00:00:00 Test Item Value Reference Range Interpretation Comments HEMOGLOBIN A1c (test code = 54972) 7.3 % HEMOGLOBIN [id number] 00:00:00 Test Item Value Reference Range Interpretation Comments HEMOGLOBIN A1c (test code = 67200) 7.3 % HEMOGLOBIN [id number] 00:00:00 Test Item Value Reference Range Interpretation Comments HEMOGLOBIN A1c (test code = 92058) 7.3 % COMPREHENSIVE METABOLIC [id number] 00:00:00 Test Item Value Reference Range Interpretation Comments GLUCOSE (test code = 2217) 113 MG/DL BUN (test code = 2208) 22 MG/DL CREATININE (test code = 2214) 0.9 MG/DL eGFR AMER. (test code 85 ML/MIN/1.73 = 47755) eGFR NON- AMER. (test 70 ML/MIN/1.73 code = 48817) CALCULATED BUN/CREAT (test 24 RATIO code = [...] code = 2219) 24 U/L COMPREHENSIVE METABOLIC [id number] 00:00:00 Test Item Value Reference Range Interpretation Comments GLUCOSE (test code = 2217) 113 MG/DL BUN (test code = 2208) 22 MG/DL CREATININE (test code = 2214) 0.9 MG/DL eGFR AMER. (test code 85 ML/MIN/1.73 = 90638) eGFR NON- AMER. (test 70 ML/MIN/1.73 code = 24012) CALCULATED BUN/CREAT (test 24 RATIO code = [...] code = 2219) 24 U/L CBC W/AUTO [id number] 00:00:00 Test Item Value Reference Range Interpretation [...] code = 1015) 270 K/UL CBC W/AUTO [id number] 00:00:00 Test Item Value Reference Range Interpretation [...] code = 1015) 270 K/UL CBC W/AUTO [id number] 00:00:00 Test Item Value Reference Range Interpretation [...] (test code = 1015) 270 K/UL HEMOGLOBIN [id number] 00:00:00 Test Item Value Reference Range Interpretation Comments HEMOGLOBIN A1c (test code = 36237) 7.3 % HEMOGLOBIN [id number] 00:00:00 Test Item Value Reference Range Interpretation Comments HEMOGLOBIN A1c (test code = 33219) 7.3 % HEMOGLOBIN [id number] 00:00:00 Test Item Value Reference Range Interpretation Comments HEMOGLOBIN A1c (test code = 93373) 7.3 % COMPREHENSIVE METABOLIC [id number] 00:00:00 Test Item Value Reference Range Interpretation Comments GLUCOSE (test code = 2217) 113 MG/DL BUN (test code = 2208) 22 MG/DL CREATININE (test code = 2214) 0.9 MG/DL eGFR AMER. (test code 85 ML/MIN/1.73 = 40965) eGFR NON- AMER. (test 70 ML/MIN/1.73 code = 04115) CALCULATED BUN/CREAT (test 24 RATIO code = [...] code = 2219) 24 U/L COMPREHENSIVE METABOLIC [id number] 00:00:00 Test Item Value Reference Range Interpretation Comments GLUCOSE (test code = 2217) 113 MG/DL BUN (test code = 2208) 22 MG/DL CREATININE (test code = 2214) 0.9 MG/DL eGFR AMER. (test code 85 ML/MIN/1.73 = 00278) eGFR NON- AMER. (test 70 ML/MIN/1.73 code = 95182) CALCULATED BUN/CREAT (test 24 RATIO code = [...] code = 2219) 24 U/L CBC W/AUTO [id number] 00:00:00 Test Item Value Reference Range Interpretation [...] code = 1015) 270 K/UL CBC W/AUTO [id number] 00:00:00 Test Item Value Reference Range Interpretation [...] code = 1015) 270 K/UL CBC W/AUTO [id number] 00:00:00 Test Item Value Reference Range Interpretation [...] (test code = 1015) 270 K/UL HEMOGLOBIN [id number] 00:00:00 Test Item Value Reference Range Interpretation Comments HEMOGLOBIN A1c (test code = 65071) 7.3 % HEMOGLOBIN [id number] 00:00:00 Test Item Value Reference Range Interpretation Comments HEMOGLOBIN A1c (test code = 18486) 7.3 % HEMOGLOBIN [id number] 00:00:00 Test Item Value Reference Range Interpretation Comments HEMOGLOBIN A1c (test code = 25217) 7.3 % COMPREHENSIVE METABOLIC [id number] 00:00:00 Test Item Value Reference Range Interpretation Comments GLUCOSE (test code = 2217) 113 MG/DL BUN (test code = 2208) 22 MG/DL CREATININE (test code = 2214) 0.9 MG/DL eGFR AMER. (test code 85 ML/MIN/1.73 = 07614) eGFR NON- AMER. (test 70 ML/MIN/1.73 code = 58385) CALCULATED BUN/CREAT (test 24 RATIO code = 2235) SODIUM (test code = 2231) 138 MEQ/L POTASSIUM (test code = 2228) 4.6 MEQ/L CHLORIDE (test code = 2215) 102 MEQ/L CARBON DIOXIDE (test code = 22 MEQ/L 6) CALCIUM (test code = 2209) 10.6 MG/DL [...] code = 2219) 24 U/L COMPREHENSIVE METABOLIC [id number] 00:00:00 Test Item Value Reference Range Interpretation Comments GLUCOSE (test code = 2217) 113 MG/DL BUN (test code = 2208) 22 MG/DL CREATININE (test code = 2214) 0.9 MG/DL eGFR AMER. (test code 85 ML/MIN/1.73 = 59801) eGFR NON- AMER. (test 70 ML/MIN/1.73 code = 40659) CALCULATED BUN/CREAT (test 24 RATIO code = [...] code = 2219) 24 U/L CBC W/AUTO [id number] 00:00:00 Test Item Value Reference Range Interpretation [...] code = 1015) 270 K/UL CBC W/AUTO [id number] 00:00:00 Test Item Value Reference Range Interpretation [...] code = 1015) 270 K/UL CBC W/AUTO [id number] 00:00:00 Test Item Value Reference Range Interpretation [...] (test code = 1015) 270 K/UL HEMOGLOBIN [id number] 00:00:00 Test Item Value Reference Range Interpretation Comments HEMOGLOBIN A1c (test code = 94079) 7.3 % HEMOGLOBIN [id number] 00:00:00 Test Item Value Reference Range Interpretation Comments HEMOGLOBIN A1c (test code = 71146) 7.3 % HEMOGLOBIN [id number] 00:00:00 Test Item Value Reference Range Interpretation Comments HEMOGLOBIN A1c (test code = 15214) 7.3 % COMPREHENSIVE METABOLIC [id number] 00:00:00 Test Item Value Reference Range Interpretation Comments GLUCOSE (test code = 2217) 113 MG/DL BUN (test code = 2208) 22 MG/DL CREATININE (test code = 2214) 0.9 MG/DL eGFR AMER. (test code 85 ML/MIN/1.73 = 75356) eGFR NON- AMER. (test 70 ML/MIN/1.73 code = 13971) CALCULATED BUN/CREAT (test 24 RATIO code = [...] code = 2219) 24 U/L CBC W/AUTO [id number] 00:00:00 Test Item Value Reference Range Interpretation [...] code = 1015) 270 K/UL CBC W/AUTO [id number] 00:00:00 Test Item Value Reference Range Interpretation [...] (test code = 1015) 270 K/UL HEMOGLOBIN [id number] 00:00:00 Test Item Value Reference Range Interpretation Comments HEMOGLOBIN A1c (test code = 77041) 7.3 % HEMOGLOBIN [id number] 00:00:00 Test Item Value Reference Range Interpretation Comments HEMOGLOBIN A1c (test code = 21192) 7.3 % COMPREHENSIVE METABOLIC [id number] 00:00:00 Test Item Value Reference Range Interpretation Comments GLUCOSE (test code = 2217) 113 MG/DL BUN (test code = 2208) 22 MG/DL CREATININE (test code = 2214) 0.9 MG/DL eGFR AMER. (test code 85 ML/MIN/1.73 = 10201) eGFR NON- AMER. (test 70 ML/MIN/1.73 code = 41770) CALCULATED BUN/CREAT (test 24 RATIO code = [...] code = 2219) 24 U/L COMPREHENSIVE METABOLIC [id number] 00:00:00 Test Item Value Reference Range Interpretation Comments GLUCOSE (test code = 2217) 113 MG/DL BUN (test code = 2208) 22 MG/DL CREATININE (test code = 2214) 0.9 MG/DL eGFR AMER. (test code 85 ML/MIN/1.73 = 29901) eGFR NON- AMER. (test 70 ML/MIN/1.73 code = 88598) CALCULATED BUN/CREAT (test 24 RATIO code = [...] code = 2219) 24 U/L CBC W/AUTO [id number] 00:00:00 Test Item Value Reference Range Interpretation [...] code = 1015) 270 K/UL CBC W/AUTO [id number] 00:00:00 Test Item Value Reference Range Interpretation [...] code = 1015) 270 K/UL CBC W/AUTO [id number] 00:00:00 Test Item Value Reference Range Interpretation [...] (test code = 1015) 270 K/UL HEMOGLOBIN [id number] 00:00:00 Test Item Value Reference Range Interpretation Comments HEMOGLOBIN A1c (test code = 62449) 7.3 % HEMOGLOBIN [id number] 00:00:00 Test Item Value Reference Range Interpretation Comments HEMOGLOBIN A1c (test code = 52348) 7.3 % HEMOGLOBIN [id number] 00:00:00 Test Item Value Reference Range Interpretation Comments HEMOGLOBIN A1c (test code = 66687) 7.3 % COMPREHENSIVE METABOLIC [id number] 00:00:00 Test Item Value Reference Range Interpretation Comments GLUCOSE (test code = 2217) 113 MG/DL BUN (test code = 2208) 22 MG/DL CREATININE (test code = 2214) 0.9 MG/DL eGFR AMER. (test code 85 ML/MIN/1.73 = 44124) eGFR NON- AMER. (test 70 ML/MIN/1.73 code = 51521) CALCULATED BUN/CREAT (test 24 RATIO code = [...] code = 2219) 24 U/L COMPREHENSIVE METABOLIC [id number] 00:00:00 Test Item Value Reference Range Interpretation Comments GLUCOSE (test code = 2217) 113 MG/DL BUN (test code = 2208) 22 MG/DL CREATININE (test code = 2214) 0.9 MG/DL eGFR AMER. (test code 85 ML/MIN/1.73 = 92627) eGFR NON- AMER. (test 70 ML/MIN/1.73 code = 84111) CALCULATED BUN/CREAT (test 24 RATIO code = [...] code = 2219) 24 U/L CBC W/AUTO [id number] 00:00:00 Test Item Value Reference Range Interpretation [...] code = 1015) 270 K/UL CBC W/AUTO [id number] 00:00:00 Test Item Value Reference Range Interpretation [...] code = 1015) 270 K/UL CBC W/AUTO [id number] 00:00:00 Test Item Value Reference Range Interpretation [...] (test code = 1015) 270 K/UL HEMOGLOBIN [id number] 00:00:00 Test Item Value Reference Range Interpretation Comments HEMOGLOBIN A1c (test code = 73177) 7.3 % HEMOGLOBIN [id number] 00:00:00 Test Item Value Reference Range Interpretation Comments HEMOGLOBIN A1c (test code = 13774) 7.3 % HEMOGLOBIN [id number] 00:00:00 Test Item Value Reference Range Interpretation Comments HEMOGLOBIN A1c (test code = 25034) 7.3 % COMPREHENSIVE METABOLIC [id number] 00:00:00 Test Item Value Reference Range Interpretation Comments GLUCOSE (test code = 2217) 113 MG/DL BUN (test code = 2208) 22 MG/DL CREATININE (test code = 2214) 0.9 MG/DL eGFR AMER. (test code 85 ML/MIN/1.73 = 68881) eGFR NON- AMER. (test 70 ML/MIN/1.73 code = 27241) CALCULATED BUN/CREAT (test 24 RATIO code = [...] code = 2219) 24 U/L COMPREHENSIVE METABOLIC [id number] 00:00:00 Test Item Value Reference Range Interpretation Comments GLUCOSE (test code = 2217) 113 MG/DL BUN (test code = 2208) 22 MG/DL CREATININE (test code = 2214) 0.9 MG/DL eGFR AMER. (test code 85 ML/MIN/1.73 = 36178) eGFR NON- AMER. (test 70 ML/MIN/1.73 code = 33544) CALCULATED BUN/CREAT (test 24 RATIO code = [...] code = 2219) 24 U/L CBC W/AUTO [id number] 00:00:00 Test Item Value Reference Range Interpretation [...] code = 1015) 270 K/UL CBC W/AUTO [id number] 00:00:00 Test Item Value Reference Range Interpretation [...] code = 1015) 270 K/UL CBC W/AUTO [id number] 00:00:00 Test Item Value Reference Range Interpretation [...] (test code = 1015) 270 K/UL HEMOGLOBIN [id number] 00:00:00 Test Item Value Reference Range Interpretation Comments HEMOGLOBIN A1c (test code = 64416) 7.3 % HEMOGLOBIN [id number] 00:00:00 Test Item Value Reference Range Interpretation Comments HEMOGLOBIN A1c (test code = 27652) 7.3 % HEMOGLOBIN [id number] 00:00:00 Test Item Value Reference Range Interpretation Comments HEMOGLOBIN A1c (test code = 54401) 7.3 % Notes Date/Time Note Provider Source 2021-08-02 21:55:00-00:00 [facility] DT Operative Note REPORT#:[id number] REPORT STATUS: Signed DATE:08/02/21 TIME: 2154 PATIENT: MARGE FRANCO UNIT #: [id number] ROOM/BED: : 78 AGE: 41 SEX: F ATTEND: Bebeto Quiroga MD ADM AUTHOR: Bebeto Quiroga MD * ALL edits or amendments must be made on the [employer] Plus/computer document * Operative Report Operative Note Note: DATE OF SERVICE: 07/31/21 PREOPERATIVE DIAGNOSIS: left volar wrist ganglio n cyst POSTOPERATIVE DIAGNOSIS: left volar wrist gangli on cyst OPERATION PERFORMED: left volar wrist ganglion c yst excision SURGEON: Bebeto Quiroga [employer] SURGEON: Diaz simmons ANESTHESIA: general with local COMPLICATIONS: None. ESTIMATED BLOOD LOSS: Minimal TOURNIQUET TIME: 20 minutes at 250 mmHg FINDINGS: volar ganglion cyst stemming from radi ocarpal joint INDICATIONS: Ms Franco is a 41 year old female with left volar wrist ganglion cyst that has been recalcitr ant to conservative treatment options. It is causing the patient pain. The patient wishes to proceed with surgical release. Risks, benefits, and alternatives to the proced ure were discussed with the patient in detail preoperatively. Risks include, bu t not limited to, infection, damage to blood vessels or nerves, stiffness of fingers, t humb, and wrist, and need for further surgery. Patient stephanie balized understanding of these risk and consented to proceed. OPERATIVE NOTE: The patient was identified in the preoperative holding area and the correct surgical site wa s marked. Patient was then brought to the Operating Room where a formal time-out was performed to confirm the correct patient, site, and planned operation. Monit ored anesthesia care was provided by the anesthesia team. A well padded tourniquet was placed on the upper arm. Patient was then prepped and draped in the [facility] sterile fashion. The arm was then exsanguinated and tourniquet inflated. A longitudinal incision was made over the gangli on cyst. Dissection was performed around the ganglion cyst. Neurovascula r structures were protected throughout the case. The cyst itself was punctured and gelatinous material was extruded. Dissection around the cyst was performed. The stalk was found in the radiocarpal joint and the ca psule was incised. The stalk was truncated sharply. Electrocautery was used to cauterize the base. The capsule was closed with Vicryl sutures. The skin was closed in l gongora using subcuticular Vicryl suture and running Monocryl suture. Dermabond was used over the top. The patient was placed into a short arm splint. The patient tolerated procedure well wit hout complications. The tourniquet was deflated and the patient had brisk cap refill 5. Electronically Signed by Bebeto Quiroga MD on 07/12 09/[address] [place] [address] #:[phone] END OF REPORT 2020-02-13 22:19:00-00:00 [id number] [place] [id number] PATIENT NAME: Marge Franco ADMIT DATE: 0 ACCOUNT NO: [id number] ROOM NO: AGE: 40 REPORT TYPE: HISTORY AND PHYSICAL SEX: F ADMITTING PHYSICIAN: ATTENDING PHYSICIAN:Judi Hodge DO ADMISSION DATE: 02/13/2020 HISTORY OF PRESENT ILLNESS: The patient is a 40- year-old female who is status post a right posterior tibial tendon reconstruct ion with debridement on 01/16/2020 at [facility]. Today, she was walking the stairs, felt a pop on the back of her operative leg in t he Achilles area and felt significant pain. She was brought to [facility] for evaluation. Presently in [facility], she is in significant pain and is poorly tolerating most exams. PAST MEDICAL HISTORY: Diabetes type 2, last A1c 9.0; supraventricular tachycardia; hypertension; hypercholesterolemia. PAST SURGICAL HISTORY: Posterior tibial tendon r econstruction on 01/16/[address] Wilson, pacemaker placement. FAMILY HISTORY: None. SOCIAL HISTORY: Nonsmoker, social drinker. CURRENT MEDICATIONS: Insulin, metformin, glimepi ride, gabapentin, hydrochlorothiazide, Victoza, lisinopril and Chris siba. PHYSICAL EXAMINATION: VITAL SIGNS: Blood pressure 113/87, temperature 98.9, pulse 91, respirations 16, 98% on room air. HEENT: No mass or deformity. HEART: Normal rate and rhythm. No murmurs, vernon ps, or rubs. LUNGS: Clear to auscultation. ABDOMEN: No masses or tenderness. EXTREMITIES: Swelling about the Achilles tendon posteriorly on the right side, extremely tender to palpation and truly unable t o tolerate a Lau's test. NEUROLOGIC: She is grossly neurologicall y intact. The right foot with positive EHL, TS, but unable to truly perform gastrocsole us plantarflexion due to significant pain; however, she is able to fire h er FDL and FHL. She has sensation intact to light touch in superficial p eroneal, deep peroneal, and tibial nerves. She has 2+ dorsalis pedis and pos terior tibialis pulses. IMAGING: Three views of the right foot a nd right ankle revealed no fracture or dislocation. CLINICAL IMPRESSION: Right complete versus parti al Achilles tendon rupture. PATIENT NAME: Marge Franco [id number] PLAN: At this point in time, we explained to the patient that due to part of the ____ reconstruction procedure, she did recei ve a percutaneous Achilles tendon lengthening. In very rare occasions, thes e lengthenings can result in complete rupture in the postoperative period and I do feel that this happened today. We will place her into a plantarf lexion splint. She does understand she may be in a foam-based wedge boot. She is to fol low up with Dr. Wilson in the morning. She is aware she may or may not receive an MRI and may or may not receive surgery depending on the conversation th at Dr. Wilson and her have. Dictated By: Judi Hodge DO WT: HP:DANY/NEYMAR/GM Conf#: [id number]/MAURICIO#: [id number] Authenticated by Judi Hodge DO On 0 07:57:56 AM Electronically Signed by Judi Hodge DO on 0 03/17/20 at 0758 PATIENT NAME: Marge Franco [id number] 2020-01-16 12:10:00-00:00 [id number] [place] [address] PATIENT NAME: MARGE FRANCO ADMIT DREW E: 01/16/20 ACCOUNT NO: [id number] ROOM NO: AGE: 39 REPORT TYPE: OPERATIVE REPORT SEX: F ADMITTING PHYSICIAN: ATTENDING PHYSICIAN:Elbert Wilson MD OPERATION DATE: 01/16/2020 PREOPERATIVE DIAGNOSES: Right posterior tibial t endinosis with distal tear, prominent navicular tuberosity and Achilles cont racture. POSTOPERATIVE DIAGNOSES: Right posterior tibial tendinosis with distal tear, prominent navicular tuberosity and Achilles cont racture. PROCEDURES PERFORMED: Right posterior tibial tendon debridement and repair with advancement, spring and deltoid ligament plicati on, medial navicular exostectomy, and percutaneous Achilles lengtheni ng. SURGEON: Elbert Wilson MD [employer]: LINDSAY Palma ANESTHESIA: General LMA with intraoperative ankl e block performed using 30 mL of 0.5% bupivacaine. IMPLANTS USED: A small Arthrex anchor was placed . PREOPERATIVE INDICATIONS: Ms. Franco is a 39-ye ar-old with multiple prior issues including some chronic pain for w hich she has a pain pump in place. She sustained an injury to her r ight ankle and experienced some protracted symptoms along the distal aspect of h er posterior tibial tendon. She is unable to get an MRI due to her pain pump in place. She a lso had a surgical scar in this region from a prior procedure perfo rmed elsewhere. A CT scan was performed that showed significant thickening within the distal aspect of her posterior tibial tendon and some calcifications within its inser tion concerning for chronic tendinosis and a likely distal tear. She otherwise does not have a flat arch. I, therefore, recommended debri briseyda and possible repair with advancement, and she understood that a calcaneal osteotomy would only be necessary if flexor digitorum longus transfer wa s necessary. She has also had a very tight Achilles and understood percutaneous Achilles lengthening would be beneficial to enhance her rehabilitation. She unde rstood risks and benefits and consented to proceed. PROCEDURE IN DETAIL: Ms. Franco was met and gre eted in the preoperative holding area by me, anesthes ia, and the OR staff. She was deemed appropriate to proceed. I marked her right foot prior to enteri ng the OR suite. Once in the operating room, she was placed supine on the table, and general anesthesia was induced. A well-padded thigh tourniquet was plac ed but not yet inflated. Foot and ankle were scrubbed with alcohol and then Ch loraPrep solution. Once PATIENT NAME: MARGE FRANCO appropriately draped, timeout was comple faith. Foot and ankle were exsanguinated and tourniquet inflated. Her maximal dorsiflexion was less than 10 degrees with her knee extended and hindfoot inverted. Small p ercutaneous incisions were made, 2 lateral, 1 medial, a nd I was then able to dorsiflex to 25 degrees. Once this was complete, her prior medial longitudinal incision was incised and extended some additionally on the proximal aspec t. A cautery was used for superficial hemostasis, and a flexor sheath and flexor retinaculum were longitudinally incised. A te nosynovectomy was performed of her posterior tibial tendon that had good excursion proximally. The m ajority of her tendon proximally was in excellent condition. She did h ave significant tendinosis at the level of the insertion w ith an intrasubstance tear at the distal attachment. This was all sharply debrided. I then mobilized her tendon off her very prominent navicular tuberosi ty. A TPS saw was used to perform an exostectomy of her very prominent medial navicular tubercle zachary ving the attachments for her navicular cuneiform joint capsule as well as her spring ligament proximally. Once this was complete, she also had some attenu ation within her spring and deltoid ligaments that were plicated with #2 FiberWire [id number] sutures. Once this was complete, a small Arthrex anchor w as placed within the medial navicular and the mid aspect of the bony bed created by the exostectomy. I then advanced her posterior tibial tendon down to bon e. After tying down to the anchor, additional purchase was placed f rom the tendon through one bony tunnel and adjacent joint capsule t o improve the contour of the tendon at the level of its insertion. Wound was copiously irrigated. Th e flexor sheath and retinaculum were approximated with running 2-0 V icryl. Dermal layer was approximated with buried 3-0 Monocryl. Skin was closed with alternating 3-0 nylon horizontal mattress an d simple sutures. An ankle block was performed in a standard fashion. Skin was cleansed and dried, d ressed with Xeroform, 4x4s, ABD, sterile cast padding, and a well-padded trino rt-leg splint was applied, secured with a 4-inch and 6-inch Jordon wrap. The p atient was aroused from anesthesia in stable condition. All counts were correct. There were no complications. Dictated By: Elbert Wilson MD WT: OP:DANY/JENNY/GM Conf#: [id number]/DID#: [id number] Authenticated by Elbert Wilson MD On 01/19/2020 06:47:49 AM Electronically Signed by Elbert Wilson MD on at 0648 PATIENT NAME: MARGE FRANCO "
[2022-11-26 08:41] LABS: HDL Cholesterol 32 mg/dL (40-60)
--- NOTE | 2022-11-26 08:46 | RAD REPORT ---
EXAM DESCRIPTION: CT - Stone Protocol - 11/26/2022 8:24 am CLINICAL HISTORY: Abd pain;Flank pain COMPARISON: Abdomen Pelvis W Contrast dated 10/29/2022; Abdomen Pelvis W Contrast dated 08/11/2022; Abdomen Pelvis W Contrast dated 07/31/2022; Abdomen Pelvis W Contrast dated 04/10/2022 TECHNIQUE: Thin cut axial CT imaging of the abdomen and pelvis was performed without IV contrast. Mu ltiplanar reformats were generated and reviewed. All CT scans are performed using dose optimization technique as appropriate and may include automated exposure control or mA/KV adjustment according to patient size. FINDINGS: No suspicious findings in the lung bases. Stable subpleural ground-glass opacities, could reflect mild scarring or unresolved mild airspace disease. The liver, spleen, and pancreas show no suspicious findings. Gallbladder was surgically removed. No e vidence of intra or extrahepatic biliary ductal dilation. Stable bilateral renal contour lobulation, without suspicious parenchymal findings within limits of n oncontrast technique. No evidence of radiopaque calculi or hydroureteronephrosis. No dilated bowel loops or bowel wall thickening. No free air, free fluid or inflammatory stranding. N o hernia, mass or bulky lymphadenopathy. The urinary bladder is without significant finding. No suspicious bony findings. Asymmetric thickening along the right rectus muscle with a focal calcification, stable, and may relat e to postsurgical changes. Nerve stimulator battery pack seen along the right back soft tissues. IMPRESSION: No acute intra-abdominal process. Stable findings as above.
[2022-11-26 08:51] LABS: LDL, Direct 62 mg/dL (100-129)
[2022-11-26 08:54] LABS: Troponin High Sensitivity 3.5 pg/mL (<58.9)
--- NOTE | 2022-11-26 09:06 | RAD REPORT ---
EXAM DESCRIPTION: RADChest Single View11/26/2022 8:56 am CLINICAL HISTORY: Abdominal distention;Cough COMPARISON: Chest Single View dated 10/29/2022; Chest Single View dated 01/04/2022; Chest Pa And Lat ( 2 Views) dated 09/17/2020; Chest Single View dated 11/09/2017 TECHNIQUE: Portable AP view of the chest. FINDINGS: The lungs are clear. No pneumothorax or effusion. The cardiomediastinal contours are unrem arkable. IMPRESSION: No acute cardiopulmonary process.
[2022-11-26] MEDS ORDERED: INSULIN -REGULAR HUMAN 50 UNIT/0.5 ML ML ONE (09:14)
[2022-11-26] MEDS ORDERED: NA CHLORIDE 0.9% 3,000 ML ONE (09:14)
[2022-11-26] MEDS ORDERED: INSULIN GLARGINE 100 UNIT/ML SQ ONE (11:10)
[2022-11-26] MEDS ORDERED: PROMETHAZINE INJ 25 MG/ML AMP ONE (11:18)
[2022-11-26] MEDS ORDERED: HYDROMORPHONE HCL 1 MG/ML INJ ONE (11:18)
[2022-11-26] MEDS ORDERED: NA CHLORIDE 0.9% 100 ML ONE (11:18)
[2022-11-26] MEDS ORDERED: ACETAMINOPHEN 500 MG TAB PO PRN (11:23)
[2022-11-26] MEDS ORDERED: ONDANSETRON 4 MG/2 ML VIAL IV PRN (11:23)
[2022-11-26] MEDS: NA CHLORIDE 0.9% 1,000 ML IV SCH ×2 (13:50→20:49)
[2022-11-26] MEDS: PROMETHAZINE 25 MG TABLET PO PRN ×2 (13:51→20:52)
[2022-11-26] MEDS: MORPHINE 2 MG/ML SYR IV PRN (13:51)
[2022-11-26 14:21] VITALS: BMI 39.3
[2022-11-26] MEDS ORDERED: NA CHLORIDE 0.9% 500 ML IV ONE (20:35)
[2022-11-26] MEDS ORDERED: FENTANYL CITR 100 MCG/2 ML IV ONE (20:35)
[2022-11-27] MEDS: NA CHLORIDE 0.9% 1,000 ML IV SCH ×3 (04:00→17:24)
[2022-11-27] MEDS ORDERED: NA CHLORIDE 0.9% 500 ML IV ONE ×2 (04:16→11:35)
[2022-11-27] MEDS: PROMETHAZINE 25 MG TABLET PO PRN (04:31)
[2022-11-27] MEDS: MORPHINE 2 MG/ML SYR IV PRN ×2 (04:31→19:56)
[2022-11-27 04:46] LABS: Absolute Lymphocytes (CBC) 2.7 K/uL (0.7-4.9); Hematocrit 33.1 % (36.0-45.0); Lymphocytes % 52.2 % (15.3-44.8); MCV 83.8 fL (80-100); MPV 7.2 fL (7.6-11.3); RBC Red Blood Cell Count 3.95 M/uL (3.86-4.86)
[2022-11-27 04:47] LABS: Protime INR 0.99
[2022-11-27 05:00] LABS: ALT/SGPT 42 U/L (13-56); AST/SGOT 28 U/L (15-37); Albumin 3.2 g/dL (3.4-5.0); Alkaline Phosphatase 37 U/L (45-117); BUN Blood Urea Nitrogen 11 mg/dL (7-18); Bicarbonate 25 mEq/L (21-32); Bilirubin Total 0.3 mg/dL (0.2-1.0); Glomerular Filtration Rate 92 ml/min (=/>90); Glucose Level 173 mg/dL (74-106); HDL Cholesterol 31 mg/dL (40-60); Lipase 82 U/L (13-75); Potassium 3.7 mEq/L (3.5-5.1); Protein, Total 6.8 g/dL (6.4-8.2); Sodium Level 138 mEq/L (136-145)
[2022-11-27 05:16] LABS: LDL, Direct 67 mg/dL (100-129)
[2022-11-27] MEDS ORDERED: PHENAZOPYRIDINE 100MG TAB PO ONE (17:28)
[2022-11-27] MEDS: PHENAZOPYRIDINE 100MG TAB PO SCH (20:00)
[2022-11-28] MEDS: NA CHLORIDE 0.9% 1,000 ML IV SCH ×2 (03:21→11:22)
[2022-11-28 04:23] LABS: Absolute Lymphocytes (CBC) 2.5 K/uL (0.7-4.9); Hematocrit 35.2 % (36.0-45.0); Lymphocytes % 45.7 % (15.3-44.8); MCV 83.7 fL (80-100); MPV 7.2 fL (7.6-11.3)
[2022-11-28 04:43] LABS: ALT/SGPT 44 U/L (13-56); AST/SGOT 26 U/L (15-37); Albumin 3.1 g/dL (3.4-5.0); Alkaline Phosphatase 39 U/L (45-117); BUN Blood Urea Nitrogen 8 mg/dL (7-18); Bicarbonate 25 mEq/L (21-32); Bilirubin Total 0.3 mg/dL (0.2-1.0); Glomerular Filtration Rate 97 ml/min (=/>90); Glucose Level 266 mg/dL (74-106); Lipase 79 U/L (13-75); Potassium 3.7 mEq/L (3.5-5.1); Protein, Total 6.9 g/dL (6.4-8.2); Sodium Level 135 mEq/L (136-145)
[2022-11-28 04:47] LABS: LDL, Direct 83 mg/dL (100-129)
[2022-11-28 05:18] LABS: C-Reactive Protein < 2.90 mg/L (<3.00)
[2022-11-28 07:40] VITALS: O2SAT 99
[2022-11-28] MEDS: PHENAZOPYRIDINE 100MG TAB PO SCH (07:41)
[2022-11-28 07:55] VITALS: BP 104/56; TEMP 96.8
--- NOTE | 2022-11-29 15:28 | EKG ---
Test Date: 2022-11-26 Test Time: 08:45:25 Audio Visual Project Manager: WILLIAMS MEASUREMENT RESULTS: Intervals: Rate: 74 CT: 164 QRSD: 90 QT: 416 QTc: 461 [place]: P: 29 CT: 164 QRS: 31 T: 34 INTERPRETIVE STATEMENTS: Normal sinus rhythm Normal ECG Compared to ECG 10/29/2022 14:20:25 Sinus tachycardia no longer present Myocardial infarct finding no longer present Electronically Signed On 11-29-22 15:22:29 CDT by Homer Garcia
== END 2022-11-28 13:22 | disposition home or self-care (01) | DRG 440 ==
LOC: ER 07:25 → ERHOLD 11:23 → 4TH 13:12 → OBSVTOIN 11-27 15:46
PROVIDERS: ADMIT Hospitalist; ATTEND Hospitalist
DX: K85.10 Biliary acute pancreatitis without necrosis or infection (principal); I10 Essential (primary) hypertension; E11.65 Type 2 diabetes mellitus with hyperglycemia; E78.00 Pure hypercholesterolemia, unspecified; E66.01 Morbid (severe) obesity due to excess calories; Z68.39 Body mass index [BMI] 39.0-39.9, adult; Z90.49 Acquired absence of other specified parts of digestive tract
CPT/HCPCS: 36415; 71045; 74176; 76377; 80053; 80061; 81001; 81025; 82533; 82947; 83690; 83880; 84478; 84484; 85025; 85610; 85730; 86140; 93005; G0378; J0696; J1170; J1815; J2270; J2405; J2550; J3010; J7030; J7040; Q0169

== ENCOUNTER 2022-12-27 07:13 | Emergency (ER) | payer OTHER ==
[2022-12-27] MEDS ORDERED: PROMETHAZINE INJ 25 MG/ML AMP ONE ×2 (07:51→08:31)
[2022-12-27] MEDS ORDERED: NA CHLORIDE 0.9% 1,000 ML ONE ×2 (07:51→09:39)
[2022-12-27] MEDS ORDERED: HYDROMORPHONE HCL 1 MG/ML INJ ONE ×2 (07:51→09:39)
[2022-12-27 08:03] LABS: Absolute Lymphocytes (CBC) 2.7 K/uL (0.7-4.9); Hematocrit 39.3 % (36.0-45.0); MCV 82.6 fL (80-100); MPV 7.7 fL (7.6-11.3); RBC Red Blood Cell Count 4.76 M/uL (3.86-4.86)
[2022-12-27 08:06] LABS: Albumin 4.2 g/dL (3.4-5.0); Bilirubin Total 0.3 mg/dL (0.2-1.0); Protein, Total 8.6 g/dL (6.4-8.2)
[2022-12-27 08:40] LABS: Specific Gravity 1.029 (1.005-1.030)
[2022-12-27 08:44] LABS: Specific Gravity 1.029 (1.005-1.030); Urine Bacteria None Seen /HPF (<20); Urine Bilirubin NEGATIVE (Negative); Urine Blood Negative (Negative); Urine Clarity Clear (Clear); Urine Color Colorless (Yellow); Urine Glucose 4+ (Over) (Negative); Urine Protein TRACE (Negative); Urine RBC <5 /HPF (None Seen); Urine Urobilinogen Normal (Normal)
--- NOTE | 2022-12-27 08:57 | RAD REPORT ---
EXAM DESCRIPTION: CT - Abdomen Pelvis W Contrast - 12/27/2022 8:35 am CLINICAL HISTORY: Abdominal pain COMPARISON: December 20192022 TECHNIQUE: Computed axial tomography of the abdomen pelvis was obtained. 100 cc Isovue-300 was admin istered intravenously. Oral contrast was not requested which limits evaluation of bowel and appendix All CT scans are performed using dose optimization technique as appropriate and may include automated exposure control or mA/KV adjustment according to patient size. FINDINGS: Mild fatty liver. Cholecystectomy Spleen, pancreas, adrenal and kidneys appear unremarkable. There is no evidence of diverticulitis. Normal appendix. No adnexal mass. Neurostimulator device in place IMPRESSION: Mild fatty liver
--- NOTE | 2022-12-27 09:32 | EDPHYS ---
Physician Documentation [facility] Name: Valentina Franco Age: 42 yrs Sex: Female : 1980 Arrival Date: 12/27/2022 Time: 07:13 Bed 8 Private MD: Yasmany Cook ED Physician Shireen Hurst HPI: 12/27 07:55 This 42 yrs old Female presents to ER via Ambulatory with complaints of sp3 Nausea/Vomiting, Abdominal Pain. 07:55 42-year-old female with history of diabetes, hyperlipidemia with triglycerides greater sp3 than 6000, hypertension and prior triglyceride induced pancreatitis now presents to the ED with epigastric pain since yesterday along with nausea and vomiting. She is status postcholecystectomy. No other symptoms reported including headache, neck pain, fever, chest pain, shortness of breath, back pain, lower abdominal pain, symptoms, MOLECULAR BIOLOGIST symptoms, neurological symptoms, skin rash, known sick contacts, travel history, or any other signs or symptoms at this time.. 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 - Social history:: Smoking status: Patient denies any tobacco usage or history of. ROS: 07:56 Constitutional: Negative for fever, chills, and weight loss, Eyes: Negative for injury, sp3 pain, redness, and discharge, ENT: Negative for injury, pain, and discharge, Neck: Negative for injury, pain, and swelling, Cardiovascular: Negative for chest pain, palpitations, and edema, Respiratory: Negative for shortness of breath, cough, wheezing, and pleuritic chest pain, Back: Negative for injury and pain, MS/Extremity: Negative for injury and deformity, Skin: Negative for injury, rash, and discoloration, Neuro: Negative for headache, weakness, numbness, tingling, and seizure, Psych: Negative for depression, anxiety, suicide ideation, homicidal ideation, and hallucinations, Allergy/Immunology: Negative for hives, rash, and allergies, Endocrine: Negative for neck swelling, polydipsia, polyuria, polyphagia, and marked weight changes, Hematologic/Lymphatic: Negative for swollen nodes, abnormal bleeding, and unusual bruising. 07:56 All other systems are negative. Exam: 07:56 Constitutional: This is a well developed, well nourished patient who is awake, alert, sp3 and in no acute distress. Head/Face: Normocephalic, atraumatic. Eyes: Pupils equal round and reactive to light, extra-ocular motions intact. Lids and lashes normal. Conjunctiva and sclera are non-icteric and not injected. Cornea within normal limits. Periorbital areas with no swelling, redness, or edema. ENT: Nares patent. No nasal discharge, no septal abnormalities noted. External auditory canals are clear. Oropharynx with no redness, swelling, or masses, exudates, or evidence of obstruction, uvula midline. Mucous membranes moist. Neck: Trachea midline, no thyromegaly or masses palpated, and no cervical lymphadenopathy. Supple, full range of motion without nuchal rigidity, or vertebral point tenderness. No Meningismus. Chest/axilla: Normal chest wall appearance and motion. Nontender with no deformity. No lesions are appreciated. Cardiovascular: Regular rate and rhythm with a normal S1 and S2. No gallops, murmurs, or rubs. Normal PMI, no JVD. No pulse deficits. Respiratory: Lungs have equal breath sounds bilaterally, clear to auscultation and percussion. No rales, rhonchi or wheezes noted. No increased work of breathing, no retractions or nasal flaring. Back: No spinal tenderness. No costovertebral tenderness. Full range of motion. Skin: Warm, dry with normal turgor. Normal color with no rashes, no lesions, and no evidence of cellulitis. MS/ Extremity: Pulses equal, no cyanosis. Neurovascular intact. Full, normal range of motion. Neuro: Awake and alert, GCS 15, oriented to person, place, time, and situation. Cranial nerves II-XII grossly intact. Motor strength 5/5 in all extremities. Sensory grossly intact. Cerebellar exam normal. Normal gait. Psych: Awake, alert, with orientation to person, place and time. Behavior, mood, and affect are within normal limits. 07:56 Abdomen/GI: Pain to epigastric palpation without peritoneal signs, rebound or guarding.. Vital Signs: 07:29 BP 165 / 97; Pulse 94; Resp 18; Temp 97.1; Pulse Ox 98% on R/A; Weight 102.97 kg; iw Height 5 ft. 4 in. ; Pain 9/10; 08:41 BP 132 / 75; Pulse 79; Resp 15; Pulse Ox 96% ; Pain 9/10; jl7 07:29 Body Mass Index 38.96 (102.97 kg, 162.56 cm) iw 07:29 Pain Scale: Adult iw 08:41 Pain Scale: Adult jl7 MDM: 07:40 Patient medically screened. sp3 07:57 Data reviewed: vital signs, nurses notes, old medical records, lab test result(s), sp3 radiologic studies. ED course: 42-year-old female with prior triglyceride induced pancreatitis now presents with epigastric pain. Differential diagnosis includes recurrent pancreatitis, gastritis, functional abdominal pain, obstruction, ileus, food poisoning, among others. Will differentiate with CT scan of the abdomen and pelvis, laboratory values, IV fluids and administer pain and nausea medication as needed. I am not highly suspicious for cardiac etiology including acute coronary syndrome, esophageal rupture, mediastinal pathology, pulmonary pathology including infection, sepsis, shock, vascular pathology including aortic dissection or aneurysm, or any other critical findings at this time. Disposition will be based on patient course and work-up results.. 09:30 ED course: CT scan demonstrates no acute abnormality. Lipase level is just over 200 sp3 with baseline levels in the 80-90 range. We will administer second liter of normal saline and additional pain medication and safely discharge patient home.. 12/27 07:35 Order name: CBC with Diff; Complete Time: 09:20 7 12/27 07:35 Order name: CMP; Complete Time: 09:20 7 12/27 07:35 Order name: Lipase; Complete Time: :20 7 12/27 07:40 Order name: Test, Urine; Complete Time: 09:20 sp3 12/27 07:40 Order name: UAM; Complete Time: 09:20 sp3 12/27 07:40 Order name: CT Abd/Pelvis - IV Contrast Only; Complete Time: :20 3 12/27 07:35 Order name: IV Saline Lock; Complete Time: 07:38 jl7 12/27 07:35 Order name: Labs collected and sent; Complete Time: 07:38 jl7 Administered Medications: 07:45 Drug: Promethazine IVP 12.5 mg Route: IVP; Site: left antecubital; jl7 08:15 Follow up: Response: No adverse reaction; No change in condition jl7 07:45 Drug: NS 0.9% IV 1000 ml Route: IV; Rate: 1 bolus; Site: left antecubital; jl7 07:49 Drug: HYDROmorphone IVP 1 mg Route: IVP; Site: left antecubital; jl7 08:42 Follow up: Response: No adverse reaction; Pain is unchanged, physician notified jl7 08:25 Drug: Promethazine IVP 12.5 mg Route: IVP; Site: left antecubital; jl7 08:42 Follow up: Response: No adverse reaction; Nausea is decreased jl7 09:32 Drug: NS 0.9% IV 1000 ml Route: IV; Rate: 1 bolus; Site: left antecubital; jl7 09:32 Drug: HYDROmorphone IVP 1 mg Route: IVP; Site: left antecubital; jl7 Disposition Summary: 12/27/22 09:32 Discharge Ordered Location: Home sp3 Condition: Stable sp3 Diagnosis - Pancreatitis sp3 Followup: sp3 - With: Private Physician - When: Upon discharge from the Emergency Department - Reason: Recheck today's complaints, Continuance of care Discharge Instructions: - Discharge Summary Sheet sp3 - Chronic Pancreatitis sp3 - Pancreatitis Eating Plan sp3 Forms: - Medication Reconciliation Form sp3 - Thank You Letter sp3 - Antibiotic Education sp3 - Prescription Opioid Use sp3 Signatures: Dispatcher [employer] Maira Cortés RN RN iw Leal, Jahala, RN RN jl7 Shireen Hurst MD MD sp3
--- NOTE | 2022-12-27 09:32 | ER ---
Nurse's Notes [facility] Name: Valentina Franco Age: 42 yrs Sex: Female : 1980 Arrival Date: 12/27/2022 Time: 07:13 Bed 8 Private MD: Yasmany Cook Diagnosis: Pancreatitis Presentation: 12/27 07:29 Chief complaint: Patient states: mid abd pain and vomiting since waking at 4 am today, iw hx of pancreatitis. Coronavirus screen: At this time, the client does not indicate any symptoms associated with coronavirus-19. Ebola Screen: Patient negative for fever greater than or equal to 101.5 degrees Fahrenheit, and additional compatible Ebola Virus Disease symptoms Patient denies exposure to infectious person. Patient denies travel to an Ebola-affected area in the 21 days before illness onset. No symptoms or risks identified at this time. Initial Sepsis Screen: Does the patient meet any 2 criteria? No. Patient's initial sepsis screen is negative. Does the patient have a suspected source of infection? No. Patient's initial sepsis screen is negative. Risk Assessment: Do you want to hurt yourself or someone else? Patient reports no desire to harm self or others. Onset of symptoms was December 27, 2022. 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 - Social history:: Smoking status: Patient denies any tobacco usage or history of. Screenin:30 [facility] ED Fall Risk Assessment (Adult) History of falling in the last 3 months, jl7 including since admission No falls in past 3 months (0 pts) Score/Fall Risk Level 0 - 2 = Low Risk Oriented to surroundings, Maintained a safe environment. Abuse screen: Denies threats or abuse. Denies injuries from another. Nutritional screening: No deficits noted. Tuberculosis screening: No symptoms or risk factors identified. Assessment: 07:30 General: Appears in no apparent distress. uncomfortable, Behavior is calm, cooperative, jl7 appropriate for age. Pain: Complains of pain in right upper quadrant and left upper quadrant Pain currently is 9 out of 10 on a pain scale. Quality of pain is described as stabbing, Pain began 3 hours ago. Is intermittent. Neuro: Level of Consciousness is awake, alert, obeys commands, Oriented to person, place, time, situation. Cardiovascular: Patient's skin is warm and dry. Respiratory: Airway is patent Respiratory effort is even, unlabored, Respiratory pattern is regular, symmetrical. GI: Abdomen is round non-distended, Stools are reported to be loose, Last BM was December 27, 2022. Reports nausea, vomiting, Patient currently denies diarrhea. Derm: Skin is pink, warm \T\ dry. 07:30 Reassessment: Dr. Hurst at bedside assessing pt. jl7 08:30 Reassessment: Patient appears in no apparent distress at this time. Pt reports no jl7 change in nausea, ERD notified, 12.5 mg promethazine IVP ordered, pt medicated as ordered. Pt transported to CT via wheelchair. 09:30 Reassessment: Patient appears in no apparent distress at this time. Patient is alert, jl7 oriented x 3, equal unlabored respirations, skin warm/dry/pink. Pain still 9/10 at this time. 09:39 Reassessment: Pt will be discharged once fluids are done infusing. jl7 Vital Signs: 07:29 BP 165 / 97; Pulse 94; Resp 18; Temp 97.1; Pulse Ox 98% on R/A; Weight 102.97 kg; iw Height 5 ft. 4 in. ; Pain 9/10; 08:41 BP 132 / 75; Pulse 79; Resp 15; Pulse Ox 96% ; Pain 9/10; jl7 07:29 Body Mass Index 38.96 (102.97 kg, 162.56 cm) iw 07:29 Pain Scale: Adult iw 08:41 Pain Scale: Adult jl7 ED Course: 07:14 Patient arrived in ED. am2 07:14 Yasmany Cook DO is Private Physician. am2 07:23 Tom Mckeon, RN is Primary Nurse. jl7 07:30 Patient has correct armband on for positive identification. Bed in low position. Call jl7 light in reach. Side rails up X 1. Pulse ox on. NIBP on. 07:30 Initial lab(s) drawn, by me, sent to lab. Inserted saline lock: 20 gauge in left jl7 antecubital area, using aseptic technique. Blood collected. 07:31 Triage completed. iw 07:31 Arm band placed on. iw 07:33 Shireen Hurst MD is Attending Physician. sp3 08:37 CT Abd/Pelvis - IV Contrast Only In Process Unspecified. EDMS 11:25 No provider procedures requiring assistance completed. IV discontinued, intact, jl7 bleeding controlled, No redness/swelling at site. Pressure dressing applied. Administered Medications: 07:45 Drug: Promethazine IVP 12.5 mg Route: IVP; Site: left antecubital; jl7 08:15 Follow up: Response: No adverse reaction; No change in condition jl7 07:45 Drug: NS 0.9% IV 1000 ml Route: IV; Rate: 1 bolus; Site: left antecubital; jl7 07:49 Drug: HYDROmorphone IVP 1 mg Route: IVP; Site: left antecubital; jl7 08:42 Follow up: Response: No adverse reaction; Pain is unchanged, physician notified jl7 08:25 Drug: Promethazine IVP 12.5 mg Route: IVP; Site: left antecubital; jl7 08:42 Follow up: Response: No adverse reaction; Nausea is decreased jl7 09:32 Drug: NS 0.9% IV 1000 ml Route: IV; Rate: 1 bolus; Site: left antecubital; jl7 09:32 Drug: HYDROmorphone IVP 1 mg Route: IVP; Site: left antecubital; jl7 Medication: 07:30 VIS not applicable for this client. jl7 Outcome: 09:32 Discharge ordered by . sp3 11:25 Discharged to home ambulatory. jl7 11:25 Condition: stable 11:25 Discharge instructions given to patient, Instructed on discharge instructions, follow up and referral plans. Demonstrated understanding of instructions, follow-up care. 11:25 Patient left the ED. jl7 Signatures: Dispatcher [employer] EDMS Maira Brooks RN RN iw Tom Mckeon RN RN jl7 Ashley Diaz am2 Shireen Hurst MD MD sp3 Corrections: (The following items were deleted from the chart) 08:42 08:41 BP 132 / 75; Pulse 79bpm; Resp 15bpm; Pulse Ox 96%; jl7 jl7
--- OUTSIDE RECORDS SUMMARY | 2022-12-27 10:03 | XMS REPORT | Continuity of Care Document ---
:1980 Author Organization [facility] t Address [address] [place] [place] [address] Care Team Providers Name Role Phone [phone] Primary Care Physician Unavailable Bebeto Quiroga Attending Clinician Unavailable Elbert Wilson Attending Clinician Unavailable AMNA CUTLER Attending Clinician Unavailable ARLENE RAIN I Attending Clinician Unavailable ORLY THORPE Attending Clinician Unavailable ZOYA GONZALEZ Attending Clinician Unavailable NICOLÁS EID Attending Clinician Unavailable NETO PEOPLES Attending Clinician Unavailable LAB90 Attending Clinician Unavailable MD DONALD Attending Clinician Unavailable JUDI MCCLELLAND Attending Clinician Unavailable IVELISSE MORRISON Attending Clinician Unavailable Loni CLAIM APPROVER, Cynantwan Attending Clinician LONIKATELYN LADD Attending Clinician Unavailable FABIO ZAMORA Attending Clinician Unavailable YRIS HARRIS Attending Clinician Unavailable Delvin FREEMAN, Leslie Monaco Attending Clinician MERI WRAY Attending Clinician Unavailable Robert Lutz MD Attending Clinician Meri Wray MD Attending Clinician Ernst MEI, Silvina Elise Attending Clinician [phone] BEATRIZ EDUARDO Attending Clinician Unavailable Blaise ANDERSON, Beatriz Cross Attending Clinician JN MILLER Attending Clinician Unavailable Jn Miller DO Attending Clinician José Miguel CLAIM APPROVER, Jade Attending Clinician FOZIA JANG Attending Clinician Unavailable Fozia Jang MD Attending Clinician MARY JAY Attending Clinician Unavailable Mary Lopez Attending Clinician Doron Grijalva MD Attending Clinician DORON GRIJALVA Attending Clinician Unavailable FABIO AVALOS Attending Clinician Unavailable BRYSON GONZALEZ Attending Clinician Unavailable Lily Deleon PA-C Attending Clinician LESLEE SMITH Attending Clinician Unavailable LILY DELEON Attending Clinician Unavailable Doctor Unassigned, [place] Attending Clinician Unavailable STANISLAW SUN Attending Clinician Unavailable ABHIJIT GALAN Attending Clinician Unavailable Kit Lopez Attending Clinician Unavailable KNOW, DOES_NOT Admitting Clinician Unavailable Elbert Wilson Admitting Clinician Unavailable Physician, No Primary or Family Admitting Clinician UnavailMERI Bills Admitting Clinician Unavailable Meri Wray MD Admitting Clinician LONIKATELYN DUENAS Admitting Clinician Unavailable BEATRIZ EDUARDO Admitting Clinician Unavailable JN MILLER Admitting Clinician Unavailable Bebeto Quiroga Admitting Clinician Unavailable FOZIA JANG Admitting Clinician Unavailable MARY JAY Admitting Clinician Unavailable Kit Lopez Admitting Clinician Unavailable Payers Payer Name Policy Type Policy Number Effective Date Expiration Date Nakul zavala CIGNA GENERIC [id number] 2019 00:00:00 AETNA MP CVS 9 [id number] 2022 SILVER: HMO 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 SPECIALIST 94 00:00:00 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 [id number] 2021 NON-CONTRACT 00:00:00 GENERIC Problems Condition Condition Condition Status Onset Resolution Last Treating Co mments Source Name Details Category Date Date Treatment Clinician Date Immunodefi Immunodefi Disease Active Abel devi ciency due ciency due 3-06 Se ybold to to 00:00: - conditions conditions 00 Ex terna classified classified l elsewhere elsewhere Gastroesop Gastroesop Disease Active Abel devi hageal hageal 2-28 Seybold reflux reflux 00:00: - disease disease 00 Externa without without l esophagiti esophagiti s s Hypertrigl Hypertrigl Disease Active Abel devi yceridemia yceridemia 2-28 Se ybold 00:00: - [...] 00 Externa l Depression Depression Disease Active K devi with with 2-28 Seybold anxiety anxiety 00:00: - 00 Externa l DM type 2 DM type 2 Disease Active Spencer isaac with with 2-28 Seybold diabetic diabetic 00:00: - mixed mixed 00 Externa hyperlipid hyperlipid l emia emia Hypertrigl Hypertrigl Disease Active U nivers yceridemia yceridemia 2-16 it y of 00:00: [place] [facility] Essential Essential Disease Active Uni vers hypertensi hypertensi 5-26 it y of on on 00:00: [place] [facility] POTS POTS Disease Active Univers (postural (postural 5-26 ity of orthostati orthostati [place] 00 Medical tachycardi tachycardi Br anch a a syndrome) syndrome) Dyslipidem Dyslipidem Disease Active U nivers ia ia 5-26 ity of 00:00: [place] [facility] Atypical Atypical Disease Active Unive rs chest pain chest pain 5-25 it y of 00:: [place] [facility] Pancreatit Pancreatit Disease Active U nivers is, is, 4-24 ity of recurrent recurrent 00:[place] [facility] Vulvar Vulvar Disease Active [...] 1-30 ity of incision incision 00:00: [place] [facility] Mood Mood Disease Active Univers swings swings 1-30 ity of 00:00: [place] [facility] Gestationa Gestationa Disease Active 2012-07 U nivers l l 2-21 ity of hypertensi hypertensi 00:[place] [facility] [place] Gestationa Gestationa Disease Active 2012-07 U nivers l l 2-21 ity of hypertensi hypertensi [place] [facility] Ventral Ventral Disease Active 2012-07 Univers hernia hernia 2-21 ity of 00:00: [place] 00 Medical Branch 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 U nivers supraventr l 0-08 ity of icular supraventr 00:00: [place] tachycardi icular 00 Medica l a s/p tachycardi Branch ablation a s/p ablation Other Other Disease Active Univers abnormalit abnormalit 7 it y of ies in ies in 00:00: [place] shape or shape or 00 Medica l position position Branch of gravid of gravid uterus and uterus and of of neighborin neighborin g g structures structures , , antepartum antepartum Biliary Biliary Disease Active Univers colic colic 02-07 ity of 00:00: [place] 00 Medical Branch Generalize Generalize Disease Active U nivers d anxiety d anxiety 7-18 ity of disorder disorder 00:00: [place] 00 Medical Branch Not immune Not immune Disease Active Overview : Univers to rubella to rubella 606 Formattin ity of 00:00: g of this [place] 00 note Medical might be Branch different from the original. 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 Immune to Immune to Disease Active Uni vers varicella varicella 6-06 ity of 00:00: [place] 00 Medical Branch Morbid Morbid Disease Active Univers obesity obesity 3-02 ity of 00:00: [place] 00 Medical Branch Type 2 Type 2 Disease Active [facility] diabetes [facility] Formattin ity of [...] 00 dic [facility]osp[facility] l alcohol FA Active PR [facility] TEQUILA 1-20 [place] 00:00: Orthope 00 dic Hospita l tequila DA Active PR hives [facility] 1-20 [place] 00:00: Orthope 00 dic Hospita l alcohol FA Active MO [facility] 7- [place] 00:00: Orthope 00 dic Hospita l alcohol FA Active MO [facility]ES [facility] TEQUILA 7 [place] 00:00: Orthope 00 dic Hospita l tequila DA Active MO hives [facility] 7 Clear 00:00: [facility] 00 [facility] Cefpodox Propensi Active Other (See Eye and M ethodi dewayne ty to Comments) 8-[address] adverse 00:00: Swelling Hospita reaction 00 30 mins l s to after drug taking medicatio n alcohol FA Active PR 2015-07 [facility] 09-06 [place] 00:00: Orthope 00 dic Hospita l alcohol FA Active PR TURNS RED 2015-07 [facility] 09-06 [place] 00:00: Orthope 00 dic Hospita l NO KNOWN Drug Active Univers ALLERGIE Class ity of S [facility] Family History Family Member Diagnosis Comments Start Date Stop Date Source Natural brother Diabetes [facility] Natural father [facility] Natural mother Diabetes [facility] Natural sister Diabetes [facility] Social History Social Habit Start Date Stop Date Quantity Comments Source Gender identity [facility] Exposure to 2022-10-24 2022-11-03 Not sure University SARS-CoV-2 (event) 00:00:00 08:52:00 [facility] Tobacco use and 2022-09-07 2022-09-07 Smokeless Andreea Se ybold - exposure 00:00:00 00:00:00 tobacco non-user External Education 2022-09-07 2022-09-07 14 Andreea Seybold - 00:00:00 00:00:00 External Alcohol intake 2019-11-22 2019-11-22 Current drinker [facility] 00:00:00 00:00:00 of alcohol Hospital (finding) History of Social 2019-11-22 2019-11-[address] function 00:00:00 00:00:00 Hospital History SDOH 2019-11-22 2019-11-22 2 [facility] Alcohol Frequency 00:00:00 00:00:00 Hospita l History SDOH 2019-11-22 2019-11-22 1 [facility] Alcohol Std Drinks 00:00:00 00:00:00 Hospit al History [facility] 2019-11-22 2019-11-22 1 [facility] Alcohol Binge 00:00:00 00:00:00 Hospital Alcohol Comment 2016-09-09 2016-09-09 Megan joe. Meth odist 00:00:00 00:00:00 Hospital Sex Assigned At [birth year] [facility] 00:00:00 00:00:00 Hospital Smoking Status Start Date Stop Date Source Never smoked tobacco Andreea Seyb old - External Medications Ordered Filled Start Stop Current Ordering Indication Dosage Frequency Signature Comments Components Source Medication Medication Date Date Medication? Clinician (SIG) Name Name Dapaglifloz 2022- No 1{tbl} 1 tablet Andreea in - 06-13 daily Seybold Propanediol 14:32: 00:00 - () 34 :00 Externa 10 MG oral l Tablet Lisinopril 0 Yes 5mg Take 1 Kelse y 5 MG oral 6-13 tablet (5 Seybo ld Tablet 14:00: mg total) - 59 by mouth Externa daily l Ezetimibe 0 Yes [id number] 10mg Take 1 K elsey 10 MG oral 6-13 tablet (10 Sey bold Tablet 00:00: mg total) - 00 by mouth Externa daily l Dapaglifloz 2022-0 Yes [id number] 1{tbl} Take 1 Andreea in - 3 tablet by Seybold Propanediol 00:00: mouth - () 00 daily Externa 10 MG oral l Tablet Insulin 0 Yes [id number] Inject 12 Andreea Aspart -13 3 units Plus Seybold (NovoLOG 00:00: sliding - FlexPen) 00 scale 2 Externa 100 UNIT/ML unit for l subcutaneou every 50 s Solution above 150 Pen-injecto (maximum r 70 units per day) Amitriptyli 2022- No 50mg Take 1 Spencer sey ne HCl 50 12-17- tablet (50 Sey bold MG oral 15:15: 00:00 mg total) - Tablet 31 :00 by mouth Externa nightly l Aripiprazol 0 2022- No Take by Ke lsey e 10 MG 12-17 mouth Seybold oral Tablet 15:15: 00:00 - 25 :00 Externa l busPIRone 0 2022- No 15mg Take 1 Kelse y HCl 15 MG 12-17 tablet (15 Sey bold oral Tablet 15:14: 00:00 mg total) - 39 :00 by mouth 2 Externa times l daily Oxybutynin 0 2022- No 10mg Take 1 Mildred ey Chloride 10 12-17 tablet (10 S eybold MG oral 15:12: 00:00 mg total) - TABLET SR 56 :00 by mouth Brokerage Office Manager a 24 HR daily l Pantoprazol 2022- No 40mg Take 1 Spencer sey e Sodium 40 12-17 tablet (40 S eybold MG oral 15:12: 00:00 mg total) - Tablet 49 :00 by mouth Externa Delayed daily l Response Sucralfate 2022- No 1g Take 1 Mildred ey 1 g oral 12-17 tablet (1 Seybo ld Tablet 15:12: 00:00 g total) - 11 :00 by mouth 4 Externa times l daily Dapaglifloz 2022-0 Yes 1{tbl} 1 tablet Andreea in 12-17 daily Seybold Propanediol 14:57: - (Farxiga) 18 Externa 10 MG oral l Tablet Lisinopril 0 Yes 5mg Take 1 Kelse y 5 MG oral 12-17 tablet (5 Seybo ld Tablet 14:57: mg total) - 18 by mouth Externa daily l [place]-3 2022-0 Yes [id number] 1999{ca Take 2,000 Andreea 1000 MG - psule} capsules Seybol d oral 00:00: by mouth 2 - Capsule 00 times Externa daily l Trazodone 2022-0 Yes [id number] 50mg Take 1 Spencer sey HCl 50 MG - tablet (50 Seyb old oral Tablet 00:00: mg total) - 00 by mouth Externa nightly l Fluoxetine 2022-0 Yes [id number] 20mg Take 1 Andreea HCl 20 MG - capsule Seybold oral 00:00: (20 mg - Capsule 00 total) by Externa mouth l daily busPIRone 2022-0 Yes [id number] 10mg Take 1 K elsey HCl 10 MG 6-09 tablet (10 Seyb old oral Tablet 00:00: mg total) - 00 by mouth 2 Externa times l daily Trazodone 2022-0 Yes [id number] 50mg Take 1 Spencer sey HCl 50 MG 6-09 tablet (50 Seyb old oral Tablet 00:00: mg total) - 00 by mouth Externa nightly l Fluoxetine 2022-0 Yes [id number] 20mg Take 1 Andreea HCl 20 MG 6-09 capsule Seybold oral 00:00: (20 mg - Capsule 00 total) by Externa mouth l daily busPIRone 2022-0 Yes [id number] 10mg Take 1 K elsey HCl 10 MG 6-09 tablet (10 Seyb old oral Tablet 00:00: mg total) - 00 by mouth 2 Externa times l daily Icosapent 2022-0 Yes [id number] 2{capsu Take 2 Andreea Ethyl 1 g 6-09 le} capsules Seybol d oral 00:00: by mouth 2 - Capsule 00 times Externa daily l Meloxicam 2022-0 Yes [id number] TAKE 1 Andreea 15 MG oral 5-25 9107 TABLET BY Seyb old Tablet 00:00: MOUTH - 00 EVERY DAY Externa NEEDED l FOR PAIN Meloxicam 2022-0 Yes [id number] TAKE 1 Andreea 15 MG oral 5-25 9107 TABLET BY Seyb old Tablet 00:00: MOUTH - 00 EVERY DAY Externa NEEDED l FOR PAIN Hydrocortis 2022-0 2022- No TAKE 2 Spencer sey one 10 MG 5-25 06-09 TABLET BY Seyb old oral Tablet 00:00: 00:00 MOUTH IN - 00 :00 THE Externa MORNING l AND 1 TABLET BY MOUTH IN THE EVENING busPIRone 2022-0 2022- No Andreea HCl 10 MG 5-24 06-09 Seybold oral Tablet 00:00: 00:00 - 00 :00 Externa l Fluoxetine 2022-0 2022- No Andreea HCl 20 MG 5-24 06-09 Seybold oral 00:00: 00:00 - Capsule 00 :00 Externa l Trazodone 2022- No Andreea HCl 50 MG -01 01-09 Seybold oral Tablet 00:00: 00:00 - 00 :00 Externa l Promethazin 2022- Yes [id number] TAKE 1 TAB Andreea e HCl 5-21 (25 MG) BY Seybold (PHENERGAN) 00:00: MOUTH - 25 MG oral 00 EVERY 6 Brokerage Office Manager a Tablet HOURS l NEEDED FOR NAUSEA / VOMITING Promethazin 2022-0 Yes [id number] TAKE 1 TAB Andreea e HCl 5-21 (25 MG) BY Seybold (PHENERGAN) 00:00: MOUTH - 25 MG oral 00 EVERY 6 Brokerage Office Manager a Tablet HOURS l NEEDED FOR NAUSEA / VOMITING HYDROcodone 2022- No 1{tbl} Q.25D Take 1 Andreea -Acetaminop 11-28 tablet by Se ybold hen 10-325 00:00: 00:00 mouth - MG oral 00 :00 every 6 Externa Tablet hours as l needed FOR PAIN Phenazopyri 2022- No 100mg Take 1 Ke lsey dine HCl 11-28 tablet Seybold 100 MG oral 00:00: 00:00 (100 mg - Tablet 00 :00 total) by Externa mouth 3 l times daily Ezetimibe 2022- No TAKE 1 Kelse y 10 MG oral 11-14 TABLET (10 Se ybold Tablet 00:00: 00:00 MG) BY - 00 :00 MOUTH Externa DAILY. l Icosapent 2022- No TAKE 2 Kelse y Ethyl 1 g 11-14 CAPSULES Seybo ld oral 00:00: 00:00 BY MOUTH - Capsule 00 :00 TWICE A Externa DAY WITH l MEALS Metformin 2022- No 1000mg Take 2 Spencer sey HCl ER 500 11-14- tablets Seybo ld MG oral 00:00: 00:00 (1,000 mg - TABLET SR 00 :00 total) by Exter na 24 HR mouth in l the morning and 2 tablets (1,000 mg total) in the evening. Take with meals. dicyclomine 2022- No 20mg 20 mg, Uni vers (BENTYL) 11-03 04- Intramuscu ity of injection 15:30: 14:48 lar, ONCE, [place] 20 mg 00 :00 1 dose, On Medical Wed Branch 11/03/22 at 1030, MALAIKA NaCl 0.9% 2022- No 1000mL at 999 Uni vers (NS) bolus 11-03 mL/hr, ity of infusion 15:30: 15:55 1,000 mL, [place] as 1,000 mL 00 :00 IV Medical Infusion, Branch ONCE, 1 dose, On Tue11/03/22 at 1030, STAT famotidine 2022- No 20mg [...] bonita 1:1:1 Wed Branch ([facility] 11/03/22 at [facility]) 0945, oral Routine suspension 15 mL ketorolac 2022- No 30mg 30 mg, Unive rs (TORADOL) 11-03 Slow IV ity of injection 14:30: 14:36 Push, [place] 30 mg 00 :00 ONCE, 1 Medical dose, On Branch 11/03/22 at 0930, MALAIKA ondansetron 2022- No 4mg 4 mg, Slow Univers (ZOFRAN 11-03 IV Push, ity of (PF)) 14:30: 14:35 ONCE, 1 [place] injection 4 00 :00 dose, On Medi bonita mg Wed Branch 11/03/22 at 0930, MALAIKA dicyclomine 2022-0 Yes [id number] 20mg Take 1 Univers 20 mg 4-26 tablet by ity of tablet 00:00: mouth 4 [place] 00 (four) Medical times Branch daily as needed for Abdominal pain. ondansetron 2022-0 Yes [id number] 4mg Take 1 Univers 4 mg 4-26 tablet by ity of disintegrat 00:00: mouth [place] ing tablet 00 every 12 Medic al (twelve) Branch hours as needed for Nausea and Vomiting (N/V). Dicyclomine 2022- No 20mg Q.25D Take 1 Ke lsey HCl 20 MG 11-03 tablet (20 Sey bold oral Tablet 00:00: 00:00 mg total) - 00 :00 by mouth 4 Externa times l daily as needed Ondansetron 2022- No TAKE 1 Spencer sey (ZOFRAN) 4 11-03 TABLET BY Sey bold MG oral 00:00: 00:00 MOUTH - TABLET 00 :00 EVERY 12 Externa DISPERSIBLE HOURS l NEEDED FOR NAUSEA AND VOMITING Atorvastati Yes [id number] 80mg Take 1 Andreea n Calcium 4-18 tablet (80 Seyb old 80 MG oral 00:00: mg total) - Tablet 00 by mouth Externa daily l Insulin Yes [id number] 10U Inject 10 Andreea Aspart 4-18 3 units into Seybold (NovoLOG 00:00: the skin 3 - FlexPen) 00 times Externa 100 UNIT/ML daily l subcutaneou (before s Solution meals) Pen-injecto Plus r sliding scale 1 unit for every 50 above 150 (maximum 50 units per day) Insulin Yes [id number] 100U Inject 100 Andreea Glargine 4-18 3 units into Seybo ld (Basaglar 00:00: the skin - KwikPen) 00 at bedtime Exter na 100 UNIT/ML l subcutaneou s Solution Pen-injecto r Metformin Yes [id number] 1000mg Take 1 Andreea HCl 1000 MG 4-18 3 tablet Seybol d oral Tablet 00:00: (1,000 mg - 00 total) by Externa mouth in l the morning and 1 tablet (1,000 mg total) in the evening. Take with meals. Atorvastati Yes [id number] 80mg Take 1 Andreea n Calcium 4-18 tablet (80 Seyb old 80 MG oral 00:00: mg total) - Tablet 00 by mouth Externa daily l Insulin Yes [id number] 100U Inject 100 Andreea Glargine 4-18 3 units into Seybo ld (Basaglar 00:00: the skin - KwikPen) 00 at bedtime Exter na 100 UNIT/ML l subcutaneou s Solution Pen-injecto r Metformin 2022-0 Yes [id number] 1000mg Take 1 Andreea HCl 1000 MG 4-18 3 tablet Seybol d oral Tablet 00:00: (1,000 mg - 00 total) by Externa mouth in l the morning and 1 tablet (1,000 mg total) in the evening. Take with meals. Insulin 0 202- No [id number] 10U Inject 10 Andreea Aspart 4-18 06-13 3 units into Seybol d (NovoLOG 00:00: 00:00 the skin 3 - FlexPen) 00 :00 times Externa 100 UNIT/ML daily l subcutaneou (before s Solution meals) Pen-injecto Plus r sliding scale 1 unit for every 50 above 150 (maximum 50 units per day) Metformin 0 Yes 1000mg Take 1,000 Andreea HCl 1000 MG 3-24 mg by Seybold oral Tab 15:48: mouth 2 - 28 times Externa daily l (with meals) Amitriptyli 0 Yes 50mg Take 50 mg Andreea ne HCl 50 3-24 by mouth Seybol d MG oral 15:48: nightly - Tablet 28 Externa l Pantoprazol 0 Yes 40mg Take 40 mg Andreea e Sodium 40 3-24 by mouth Seyb old MG oral 15:48: daily - Tablet 28 Externa Delayed l Response busPIRone 0 Yes 15mg Take 15 mg Ke lsey HCl 15 MG 3-24 by mouth 2 Seyb old oral Tablet 15:48: times - 28 daily Externa l Atorvastati 0 Yes 80mg Take 80 mg Andreea n Calcium 3-24 by mouth Seybol d 80 MG oral 15:48: daily - Tablet 28 Externa l Aripiprazol 0 Yes Take by Spencer sey e 10 MG 3-24 mouth Seybold oral Tablet 15:48: - 28 Externa l Dapaglifloz 0 Yes 1{tbl} 1 tablet Andreea in 3-24 daily Seybold Propanediol 15:48: - () 28 Externa 10 MG oral l Tablet Oxybutynin 2022-0 Yes 10mg Take 10 mg K elsey [...] 15:48: daily - 28 Externa l Meloxicam 0 Yes [id number] 15mg QD Take 1 Andreea 15 MG oral -24 9107 tablet (15 Sey bold Tablet 00:00: mg total) - 00 by mouth Externa daily as l needed for pain Ezetimibe 2022-0 2022- No 10mg Take 10 mg K elsey 10 MG oral 3-03 03-03 by mouth Seyb old Tablet 10:42: 00:00 daily - 35 :00 Externa l Metformin 2022-0 Yes 1000mg [...] Atorvastati 2022-0 Yes 80mg Take 80 mg Anderea n Calcium 3-03 by mouth Seybol d [...] daily - 34 Externa l Continuous Yes [id number] Use as Andreea Blood Gluc 3-03 3 directed Seybo ld Transmit 00:00: for - (Dexcom G6 00 continuous Ext john Transmitter glucose l ) does not monitoring apply Misc with Dexcom system Continuous Yes [id number] Use as Andreea Blood Gluc 3-03 3 directed Seybo ld Wellness Health Coach 00:00: for - (Dexcom G6 00 continuous Ext john Wellness Health Coach) glucose l does not monitoring apply Device Continuous Yes [id number] Use as Andreea Blood Gluc 3-03 3 directed Seybo ld Sensor 00:00: for - (Dexcom G6 00 continuous Ext john Sensor) glucose l does not monitoring apply Misc with Dexcom system Ostomy Yes [id number] Use as Ke lsey Supplies 3-03 3 directed Seybold (Skin Tac 00:00: for - Adhesive 00 continuous Exter na Barrier glucose l Wipe) does monitoring not apply with Misc Dexcom system Fenofibrate Yes [id number] 160mg Take 1 Andreea 160 MG oral 3-03 tablet Seybol d Tablet 00:00: (160 mg - 00 total) by Externa mouth l daily Insulin Yes [id number] 10U Inject 10 Andreea Aspart 3-03 3 units into Seybold (NovoLOG 00:00: the skin 3 - FlexPen) 00 times Externa 100 UNIT/ML daily l subcutaneou (before s Solution meals) Pen-injecto Plus r sliding scale 1 unit for every 50 above 150 (maximum 50 units per day) Continuous Yes [id number] Use as Andreea Blood Gluc 3-03 3 directed Seybo ld Transmit 00:00: for - (Dexcom G6 00 continuous Ext john Transmitter glucose l ) does not monitoring apply Misc with Dexcom system Continuous Yes [id number] Use as Andreea Blood Gluc 3-03 3 directed Seybo ld Wellness Health Coach 00:00: for - (Dexcom G6 00 continuous Ext john Wellness Health Coach) glucose l does not monitoring apply Device Continuous Yes [id number] Use as Andreea Blood Gluc 3-03 3 directed Seybo ld Sensor 00:00: for - (Dexcom G6 00 continuous Ext john Sensor) glucose l does not monitoring apply Misc with Dexcom system Ostomy Yes [id number] Use as Ke lsey Supplies 3-03 3 directed Seybold (Skin Tac 00:00: for - Adhesive 00 continuous Exter na Barrier glucose l Wipe) does monitoring not apply with Misc Dexcom system Fenofibrate Yes [id number] 160mg Take 1 Andreea 160 MG oral 3-03 tablet Seybol d Tablet 00:00: (160 mg - 00 total) by Externa mouth l daily Continuous Yes [id number] Use as Andreea Blood Gluc 3-03 3 directed Seybo ld Transmit 00:00: for - (Dexcom G6 00 continuous Ext john Transmitter glucose l ) does not monitoring apply Misc with Dexcom system Continuous Yes [id number] Use as Andreea Blood Gluc 3-03 3 directed Seybo ld Wellness Health Coach 00:00: for - (Dexcom G6 00 continuous Ext john Wellness Health Coach) glucose l does not monitoring apply Device Continuous Yes [id number] Use as Andreea Blood Gluc 3-03 3 directed Seybo ld Sensor 00:00: for - (Dexcom G6 00 continuous Ext john Sensor) glucose l does not monitoring apply Misc with Dexcom system Ostomy Yes [id number] Use as Ke lsey Supplies 3-03 3 directed Seybold (Skin Tac 00:00: for - Adhesive 00 continuous Exter na Barrier glucose l Wipe) does monitoring not apply with Misc Dexcom system Fenofibrate Yes [id number] 160mg Take 1 Andreea 160 MG oral 3-03 tablet Seybol d Tablet 00:00: (160 mg - 00 total) by Externa mouth l daily Continuous Yes [id number] Use as Andreea Blood Gluc 3-03 3 directed Seybo ld Transmit 00:00: for - (Dexcom G6 00 continuous Ext john Transmitter glucose l ) does not monitoring apply Misc with Dexcom system Continuous Yes [id number] Use as Andreea Blood Gluc 3-03 3 directed Seybo ld Wellness Health Coach 00:00: for - (Dexcom G6 00 continuous Ext john Wellness Health Coach) glucose l does not monitoring apply Device Continuous Yes [id number] Use as Andreea Blood Gluc 3-03 3 directed Seybo ld Sensor 00:00: for - (Dexcom G6 00 continuous Ext john Sensor) glucose l does not monitoring apply Misc with Dexcom system Ostomy Yes [id number] Use as Ke lsey Supplies 3-03 3 directed Seybold (Skin Tac 00:00: for - Adhesive 00 continuous Exter na Barrier glucose l Wipe) does monitoring not apply with Misc Dexcom system Fenofibrate Yes [id number] 160mg Take 1 Andreea 160 MG oral 3-03 tablet Seybol d Tablet 00:00: (160 mg - 00 total) by Externa mouth l daily Insulin Yes [id number] 10U Inject 10 Andreea Aspart 3-03 3 units into Seybold (NovoLOG 00:00: the skin 3 - FlexPen) 00 times Externa 100 UNIT/ML daily l subcutaneou (before s Solution meals) Pen-injecto Plus r sliding scale 1 unit for every 50 above 150 (maximum 50 units per day) Insulin Yes [id number] 100U Inject 100 Andreea Glargine 3-01 3 units into Seybo ld (Basaglar 00:00: the skin - KwikPen) 00 at bedtime Exter na 100 UNIT/ML l subcutaneou s Solution Pen-injecto r [place]-3 Yes [id number] 1000{ca Take 1,000 Andreea 1000 MG 3-01 psule} capsules Seybol d oral 00:00: by mouth 3 - Capsule 00 times Externa daily l Insulin Yes [id number] 100U Inject 100 Andreea Glargine 3-01 3 units into Seybo ld (Basaglar 00:00: the skin - KwikPen) 00 at bedtime Exter na 100 UNIT/ML l subcutaneou s Solution Pen-injecto r [place]-3 Yes [id number] 1000{ca Take 1,000 Andreea 1000 MG 3-01 psule} capsules Seybol d oral 00:00: by mouth 3 - Capsule 00 times Externa daily l [place]-3 2022-0 2022- No [id number] 1000{ca Take 1,000 Andreea 1000 MG 3-01 06-09 psule} capsules Seybo ld oral 00:00: 00:00 by mouth 3 - Capsule 00 :00 times Externa daily l Insulin 2022- No [id number] 10U Inject 10 Andreea Aspart 09-08 03-03 3 units into Seybol d (NovoLOG 00:00: 00:00 the skin 3 - FlexPen) 00 :00 times Externa 100 UNIT/ML daily l subcutaneou (before s Solution meals) Pen-injecto r [place]-3 2022- No Take by Andreea 1000 MG 09-07 mouth Seybold oral 15:18: 00:00 - Capsule 41 :00 Externa l Insulin 2022- No Inject Andreea Aspart 09-07 into the Seybold (NovoLOG 15:18: 00:00 skin - FlexPen) 41 :00 Externa 100 UNIT/ML l subcutaneou s Solution Pen-injecto r Insulin 2022- No Inject Andreea Glargine 09-07 into the Seybol d (Basaglar 15:18: 00:00 skin at - KwikPen) 41 :00 bedtime Externa 100 UNIT/ML l subcutaneou s Solution Pen-injecto r Amitriptyli 2022- No 10mg Take 10 mg [place] ne HCl 10 09-07 by mouth Seybo ld MG oral 15:10: 00:00 at bedtime - Tablet 02 :00 Externa l MethIMAzole 2022- No 10mg Take 10 mg Andreea 10 MG oral 09-07 by mouth Seyb old Tab 15:01: 00:00 daily - 44 :00 Externa l Metformin 2022-0 Yes 1000mg Take 1,000 Andreea HCl 1000 MG 2-28 mg by Seybold oral Tab 14:59: mouth 2 - 38 times Externa daily l (with meals) Amitriptyli 0 Yes 50mg Take 50 mg [place]ree[place] ne HCl 50 2-28 by mouth Seybol d MG oral 14:59: nightly - Tablet 38 Externa l Pantoprazol 0 Yes 40mg Take 40 mg Andreea e Sodium 40 2-28 by mouth Seyb old MG oral 14:59: daily - Tablet 38 Externa Delayed l Response busPIRone 0 Yes 15mg Take 15 mg Ke l[place] HCl 15 MG 2-28 by mouth 2 Seyb old oral Tablet 14:59: times - 38 daily Externa l Atorvastati 0 Yes 80mg Take 80 mg [place]reea n Calcium 2-28 by mouth Seybol d 80 MG oral 14:59: daily - Tablet 38 Externa l Aripiprazol Yes Take by Spencer sey e 10 MG 2-28 mouth Seybold oral Tablet 14:59: - 38 Externa l Dapaglifloz 0 Yes 1{tbl} 1 tablet Andreea in 2-28 daily Seybold Propanediol 14:59: - (Farxiga) 38 Externa 10 MG oral l Tablet Oxybutynin Yes 10mg Take 10 mg K elsey Chloride 10 2-28 by mouth Seyb old MG oral 14:59: daily - TABLET SR 38 Externa 24 HR l Sucralfate 0 Yes 1g Take 1 g Spencer sey 1 g oral 2-28 by mouth 4 Seybo ld Tablet 14:59: times - 38 daily Externa l Ezetimibe 0 Yes 10mg Take 10 mg Ke lsey 10 MG oral 2-28 by mouth Seybo ld Tablet 14:59: daily - 38 Externa l Lisinopril 0 Yes 5mg Take 5 mg Ke lsey 5 MG oral 2-28 by mouth Seybol d Tablet 14:59: daily - 38 Externa l [place]-3 2022-0 Yes [id number] 1000{ca Take 1,000 Andreea 1000 MG 2-28 psule} capsules Seybol d oral 00:00: by mouth 3 - Capsule 00 times Externa daily l Insulin Yes [id number] 10U Inject 10 [place] Aspart 2-28 3 units into Seybold (NovoLOG 00:00: the skin 3 - FlexPen) 00 times Externa 100 UNIT/ML daily l subcutaneou (before s Solution meals) Pen-injecto r Insulin Yes [id number] 100U Inject 100 [place]ree[place] Glargine 2-28 3 units into Seybo ld (Basaglar 00:00: the skin - KwikPen) 00 at bedtime Exter na 100 UNIT/ML l subcutaneou s Solution Pen-injecto r Insulin 2022- No [id number] 100U Inject 100 [place] Glargine 2-28 02-28 3 units into Seyb old (Basaglar 00:00: 00:00 the skin - KwikPen) 00 :00 at bedtime Exter na 100 UNIT/ML l subcutaneou s Solution Pen-injecto r KCL 2022- No 40meq 40 mEq, Univers (KLOR-CON 2-20 02-20 Oral, ity of M20) tablet 15:15: 14:47 ONCE, 1 [place] 40 mEq 00 :00 dose, On Medical [facility] 08/30/22 at 0915, Routine Sliding Yes Subcutaneo Univ ers Scale 2-20 us, TID ity of Insulin - 15:00: MEALS+HS, [place] as Lispro 00 First dose Medical (HumaLOG) + (after Branch Fsbg last Testing modificati on) on [facility] 08/30/22 at 0900, Until Discontinu ed, Routine insulin Yes 50U 50 Units, Unive rs glargine 2-20 Subcutaneo ity o f (LANTUS 14:45: us, BID, [place] U-100) 00 First dose Medical injection on [facility] Branch 50 Units 08/30/22 at 0845, Until Discontinu ed, Routine D5W 0.45% 2022- No IV Univers NaCl 2-20 02-20 Infusion, ity of (1/2NS) 1 L 03:00: 14:25 at 100 [place] as + KCL 20 00 :34 mL/hr, Medical mEq CONTINUOUS Branch , Starting on 08/29/22 at 2100, Until 08/30/22 at 0825, Routine insulin Yes [id number] 72U inject 72 Univers degludec 2-20 Units ity of (TRESIBA 00:00[facility] skin 2 Medical U-100) 100 (two) Branch unit/mL (3 times mL) InPn daily. insulin Yes [id number] 72U inject 72 Univers degludec 2-20 Units ity of (TRESIBA 00:00: under the [place] FLEXTOUCH 00 skin 2 Medical U-100) 100 (two) Branch unit/mL (3 times mL) InPn daily. insulin Yes [id number] 72U inject 72 Univers degludec 2-20 Units ity of (TRESIBA 00:00: under the [place] FLEXTOUCH 00 skin 2 Medical U-100) 100 (two) Branch unit/mL (3 times mL) InPn daily. atorvastati 2022- No [id number] 80mg Take 1 Univers n 80 mg 2-20 -23 tablet by ity of tablet 00:00: 04:59 mouth at [place] 00 :00 bedtime Medical for 30 Branch days. LOVWAYNEA, 2022- No [id number] 1g Take 1 Un fabiana omega-3-aci 2-20 -23 capsule by i ty of d ethyl 00:00: 04:59 mouth in [place] esters, 1 00 :00 the Medical gram morning Branch capsule and 1 capsule in the evening. Do all this for 30 days. atorvastati 2022- No [id number] 80mg Take 1 Univers n 80 mg 2-20 -23 tablet by ity of tablet 00:00: 04:59 mouth at [place] 00 :00 bedtime Medical for 30 Branch days. LOVAZA, 2022- No [id number] 1g Take 1 Un fabiana omega-3-aci 2-20 -23 capsule by i ty of d ethyl 00:00: 04:59 mouth in [place] esters, 1 00 :00 the Medical gram [...] Yes 650mg 650 mg, Un fabiana en -18 Oral, ity of (TYLENOL) 18:48: Q6HPRN, [place] tablet 650 59 Starting Medic al mg on Sat Branch 08/28/22 at 1248, Until Discontinu ed, Routine, Pain (scale 1-3) calcium 2022- No 2g 2 g, IV Univer s gluconate 2 08-28 Infusion, it y of g in NaCl 15:15: 17:27 at 200 [place] 100 mL 00 :00 mL/hr Medical (ISO-OSM) Administer Bran ch RTU IV over 30 infusion 2 Minutes, g ONCE, 1 dose, On 08/28/22 at 0915, Routine D5W 0.45% 2022- No 1000mL at 100 Uni vers NaCl 08-2819 mL/hr, ity of (1/2NS) IV 14:30: 21:45 1,000 mL, [place] infusion 00 :17 IV Medical 1,000 mL Infusion, Branch CONTINUOUS , Starting on 08/28/22 at 0830, Until 08/29/22 at 1545, Routine morpHINE (2 Yes 2mg 2 mg, Slow Univers mg/mL) 2-17 IV Push, ity of injection 2 20:13: Q4HPRN, [place] as mg 31 Starting Medical on Tue Branch 08/27/22 at 1413, Until Discontinu ed, Routine, Pain (scale 7-10) enoxaparin 0 Yes 40mg 40 mg, Unive rs (LOVENOX) 2-17 Subcutaneo ity of injection 15:00: us, DAILY, [place] 40 mg 00 First dose Medical on Tue Branch 08/27/22 at 0900, Until Discontinu ed, Routine lisinopriL 0 Yes 2.5mg 2.5 mg, Uni vers (PRINIVIL,Z -17 Oral, ity of ESTRIL) 15:00: DAILY, [place] tablet 2.5 00 First dose Med ical mg on Tue Branch 08/27/22 at 0900, Until Discontinu ed, Routine fenofibrate Yes 134mg 134 mg, Un fabiana micronized 08-27 Oral, ity of (LOFIBRA) 15:00: DAILY, [place] capsule 134 00 First dose Me dical mg on Tue Branch 08/27/22 at 0900, Until Discontinu ed, Routine gabapentin Yes 600mg 600 mg, Uni vers (NEURONTIN) 17 Oral, BID, it y of tablet 600 02:00: First dose [place] mg 00 on [facility] 08/26/22 at Branch 2000, Until Discontinu ed, Routine insulin 2022- No .1U/kg/ 0.1 Univer s regular in 08-27 02-20 h Units/kg/h it y of 0.9 % NaCl 02:00: 14:25 r ?108.8 [place] (MYXREDLIN) 00 :34 kg (10.88 Med ical 100 mL/hr), IV Branch unit/100 mL Infusion, (1 unit/mL) CONTINUOUS RTU IV , Starting infusion on [facility] 08/26/[address] insulin infusion at 0.1 u/kg/hr and keep fixed at that rate. Hold insulin infusion x 1 hour and NHO if BG < 140 mg/dL for instructio ns to increase dextrose fluids. Restart once BG >/= 140 mg/dL
magnesium 2022-0 2022- No 2g 2 g, IV Univ ers sulfate in 08-27 Piggyback, it y of water 2 01:30: 03:11 Administer [place] as gram/50 mL 00 :00 over 60 Medica l (4 %) Minutes, Branch infusion 2 ONCE, 1 g dose, On [facility] 08/26/22 at 1930, MALAIKA ondansetron Yes 4mg 4 mg, Slow Univers (ZOFRAN -17 IV Push, ity of (PF)) 01:21: Q6HPRN, [place] injection 4 59 Nausea and Me dical mg Vomiting Branch (N/V), Starting on Rachael 08/26/22 at 1921
Do ses of ondansetro n 16 mg and above need to be administer ed via IV piggyback. For Dose >=24mg ECG monitoring is advisable.
glucagon 0 Yes 1mg 1 mg, Univers (GLUCAGEN 2-17 Intramuscu ity of DIAGNOSTIC 00:45: lar, PRN, [...] 16 Starting Medica l 25 mL on Rachael Branch 08/26/22 at 1845, Until Discontinu ed, MALAIKA, Blood Glucose < or = 70 mg/dL and patient is NPO, unable to swallow or has mental status changes. NaCl 0.9% 2022- No 1000mL at 200 Uni vers (NS) IV 217 02-19 mL/hr, IV ity of infusion 00:00: 21:45 Infusion, [place] as 1,000 mL 00 :17 CONTINUOUS Medic al , Starting Branch on Rachael 08/26/22 at 1800, Until 08/29/22 at 1545, Routine LOVAZA 0 Yes 2{capsu 2 g (2 Univer s (omega-3-ac 2-16 le} capsule), ity of id ethyl 23:00: Oral, BID, [place] as esters) 00 First dose Medica l capsule 2 g on [place]achael Branch 08/26/22 at 1700, Until Discontinu ed, Routine atorvastati 2022-0 Yes 80mg 80 mg, Univ ers n (LIPITOR) 2-16 Oral, QHS, it y of tablet 80 23:00: First dose [place] mg 00 on Rachael Medical 08/26/22 at Branch 1700, Until Discontinu ed, Routine insulin 2022-0 202- No 8U 8 Units, Unive rs regular 2-16 02-16 Slow IV ity of human 23:00: 23:06 Push, [place] (HUMULIN R) 00 :00 ONCE, 1 Medic al injection 8 dose, On Bran ch Units Rachael 08/26/22 at 1700, STAT
In dication for insulin: Hyperglyce shea NaCl 0.9% 2022- No 2000mL at 999 Uni vers (NS) bolus 08-26 mL/hr, ity of infusion 21:45: 23:52 2,000 mL, [place] as 2,000 mL 00 :00 IV Medical Piggyback, Branch ONCE, 1 dose, On Rachael 08/26/22 at 1545, STAT insulin 2022- No 10U 10 Units, Univ ers regular 08-26 Slow IV ity of human 21:00: 21:11 Push, [place] (HUMULIN R) 00 :00 ONCE, 1 Medic al injection dose, On Branch 10 Units Rachael 08/26/22 at 1500, STAT
In dication for insulin: Hyperglyce shea Lactobacill 2022- No Take by Un fabiana us 08-26-16 mouth. ity of acidophilus 18:46: 00:00 [place] (PROBIOTIC 18 :00 Medical ORAL) Branch MULTIVITAMI 2022- No Take by Un fabiana N ORAL -16 -16 mouth. ity of 18:46: 00:00 [place] 18 :00 Medical Branch multivitami 2022- No Take by Un fabiana n with 16 -16 mouth. ity of minerals 18:46: 00:00 [place] (HAIR,SKIN 18 :00 Medical AND NAILS Branch [...] 2021-07 No DIRECTED. 2-14 00:00: 00 Dose 2021-07 No Unknown 2-14 00:00: 00 USE 3-4 2021-07 No TIMES 2-14 WEEKLY. 00:00: LEAVE ON [...] 2-14 MOUTH EVERY 00:00: DAY 00 FINASTERIDE 2021- No 5MG Tablets 2-14 00:00: 00 Dose 2021- No Unknown 2-14 00:00: 00 TAKE BY 2021- No MOUTH 3 2-14 CAPSULES 3 00:00: [...] TWICE 00:00: A DAY 00 NaCl 0.9% 2021-07- No 1000mL at 999 [...] 2-13 ity of 1000 mL + 02:00: Charlie KCL 20 mEq 00 Medical Branch D5W 0.45% 2021-07 Yes 1000mL at 200 Univ ers NaCl 2-13 mL/hr, ity of (1/2NS) IV 01:48: 1,000 mL, [place] infusion 28 IV Medical 1,000 mL Infusion, Branch PRN - SEE INSTRUCTIO NS, Starting on Tue06/21/22 at 1948, Until Discontinu ed, MALAIKA ondansetron 2021-07- No 4mg 4 mg, Slow Univers (ZOFRAN 2-13 12-13 IV Push, ity of (PF)) 01:00: 01:01 ONCE, 1 [place] injection 4 00 :00 dose, On Medi bonita mg [facility] 06/21/22 at 1900, MALAIKA NaCl 0.9% 2021-07- No 1000mL at 999 Uni vers (NS) bolus 2-13 12-13 mL/hr, ity of infusion 00:45: 01:56 1,000 mL, [place] as 1,000 mL 00 :00 IV Medical Infusion, Branch ONCE, 1 dose, On [facility] 06/21/22 at 1845, STAT TAKE 2021-07 No TABLET 0-21 TWICE A DAY 00:00: 00 TAKE 2021-07 No TABLET 0-21 TWICE A DAY 00:00: 00 TAKE 2021-07 No TABLET 0-21 TWICE A DAY 00:00: 00 TAKE 2021-07 No TABLET 0-21 TWICE A DAY 00:00: 00 TAKE 2021-07 No TABLET 0-21 TWICE A DAY 00:00: 00 Dose 2021-0 No Unknown 7-13 00:00: 00 Bromfed DM No 5mg/5 2 mg-30 7-13 [...] 7-13 00:00: 00 Dose 2022-0 No Unknown - 00:00: 00 Dose 2022-0 No Unknown - 00:00: 00 Valium 10 2022-0 No 1mg [...] 5 mg tablet 14 00:00: 00 atorvastati 2022-0 No 1mg n [...] glimepiride 2022-0 No 1mg 4 mg tablet 514 00:00: 00 Janumet XR 2022-0 No 1mg 100 5-14 mg-1,000 mg 00:00: tablet,exte 00 nded release Victoza 2-0 No (18 3-Christofer 0.6 5-14 mg/3 mg/0.1 mL 00:00: mL) (18 mg/3 00 mL) [facility] Tresiba 2-0 No (3 mL) FlexTouch 5-14 U-100 00:00: insulin 100 00 unit/mL (3 mL) [facility] alogliptin 2-0 No 1mg 25 [...] mg tablet 14 00:00: 00 Janumet XR 2022-0 No 1mg [...] 2021-0 No Unknown 5-14 00:00: 00 Dose 2021-0 No Unknown 5-14 00:00: 00 TAKE 1 2021-0 No TABLET 5-14 DAILY. 00:00: 00 TAKE 1 2021-0 No TABLET 5-14 TWICE 00:00: DAILY. 00 [...] 2022-0 No Unknown 4-13 00:00: 00 Dose No Unknown 10-21 00:00: 00 NaCl 0.9% No 1000mL at 999 Uni vers (NS) IV 10-17 mL/hr, ity of infusion 02:00: 02:08 Intravenou [place] 1,000 mL 00 :00 s, ONCE, 1 Medic al dose, On Branch 10/16/21 at 2100, MALAIKA insulin 2021- No .1U/kg 10.3 Units U nivers regular 10-17 (rounded ity of human 02:00: 01:14 from 10.34 [place] (HUMULIN R) 00 :00 Units = Medic al injection 0.1 Branch 10.3 Units Units/kg ?103.4 kg), Slow IV Push, ONCE, 1 dose, On Tue10/16/21 at 2100, STAT oxybutynin No 5mg 5 mg, Unive rs chloride [...] No 30mg 30 mg, Unive rs (TORADOL) 4-08 04-08 Slow IV ity of injection 23:15: 23:05 Push, [place] 30 mg 00 :00 ONCE, 1 Medical dose, On Branch Tue10/16/21 at 1815, Routine
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 ondansetron 2021-0 Yes [id number] 4mg Take 1 Univers 4 mg 4-08 tablet by ity of disintegrat 00:00: mouth [place] ing tablet 00 every 8 Medica l (eight) Branch hours as needed for Nausea and Vomiting (N/V). oxybutynin 2021-0 Yes [id number] 5mg Take 1 Univers chloride 5 4-08 tablet by ity of mg tablet 00:00: mouth 3 [place] 00 (three) Medical times Branch daily as needed for Bladder spasms. ondansetron 2021-0 Yes [id number] 4mg Take 1 Univers 4 mg 4-08 tablet by ity of disintegrat 00:00: mouth [place] ing tablet 00 every 8 Medica l (eight) Branch hours as needed for Nausea and Vomiting (N/V). oxybutynin 2021-0 Yes [id number] 5mg Take 1 Univers chloride 5 4-08 tablet by ity of mg tablet 00:00: mouth 3 [place] 00 (three) Medical times Branch daily as needed for Bladder spasms. ondansetron 2021-0 Yes [id number] 4mg Take 1 Univers 4 mg 4-08 tablet by ity of disintegrat 00:00: mouth [place] ing tablet 00 every 8 Medica l (eight) Branch hours as needed for Nausea and Vomiting (N/V). oxybutynin 2021-0 Yes [id number] 5mg Take 1 Univers chloride 5 4-08 tablet by ity of mg tablet 00:00: mouth 3 [place] 00 (three) Medical times Branch daily as needed for Bladder spasms. ondansetron 2021-0 Yes [id number] 4mg Take 1 Univers 4 mg 4-08 tablet by ity of disintegrat 00:00: mouth [place] ing tablet 00 every 8 Medica l (eight) Branch hours as needed for Nausea and Vomiting (N/V). oxybutynin 0 Yes [id number] 5mg Take 1 Univers chloride 5 4-08 tablet by ity of mg tablet 00:00: mouth 3 [place] 00 (three) Medical times Branch daily as needed for Bladder spasms. ondansetron Yes [id number] 4mg Take 1 Univers 4 mg 4-08 tablet by ity of disintegrat 00:00: mouth [place] ing tablet 00 every 8 Medica l (eight) Branch hours as needed for Nausea and Vomiting (N/V). traMADoL 50 2021-0 2021- No [id number] 50mg Take 1 Uni vers mg tablet -08 04-16 tablet by ity of 00:00: 04:59 [...] 3- 00:00: 00 Dose 2-0 No Unknown 3-29 00:00: 00 Diflucan 2-0 [...] 3-29 00:00: 00 Dose 2021-0 No Unknown 3 [...] 2021-0 No Unknown 3 00:00: 00 ketorolac 2021-2021- No 15mg 15 mg, Unive rs (TORADOL) [...] dose, On Tue09/22/21 at 1115, STAT ondansetron No 4mg 4 mg, Slow Univers (ZOFRAN 09-22-15 IV Push, ity of (PF)) 15:15: 15:18 ONCE, 1 [place] injection 4 00 :00 dose, On Medi bonita mg Tue Branch 09/22/21 at 1015, Routine Dose No Unknown 1-19 00:00: 00 Dose 2021-0 No Unknown 1-19 00:00: 00 hydrochloro 0 No 1mg thiazide 25 1-19 mg tablet [...] 2022-0 No Unknown 1-19 00:00: 00 Dose 2021-0 No Unknown 1- 00:00: 00 Dose 2021-0 No Unknown 1- 00:00: 00 Dose 2021-0 No Unknown 1- 00:00: 00 Dose 2021-0 No Unknown 1- 00:00: 00 Dose 2021-0 No Unknown 1- 00:00: 00 Dose 2021-0 No Unknown 1- 00:00: 00 Dose 2021-0 No Unknown 1- 00:00: 00 Dose 2021-0 No Unknown 1- 00:00: 00 morpHINE 2020-07- No 4mg 4 mg, Slow Un fabiana injection 4 08-19 IV Push, ity of mg 14:30: 13:31 [...] Indication s: acute pain ondansetron 2020-07 Yes [id number] 4mg Take 1 Univers 4 mg 2-09 [...] Indication s: acute pain ondansetron 2020-07 Yes [id number] 4mg Take 1 Univers 4 mg 2-09 [...] Indication s: acute pain ondansetron 2020-07 Yes [id number] 4mg Take 1 Univers 4 mg 2-09 [...] Indication s: acute pain ondansetron 2020-07- No [id number] 4mg Take 1 Univers 4 mg -03 14- tablet by ity of disintegrat 00:00: 00:00 [...] 05/30/21 at 1800, Routine iopamidol 2020-07- No [id number] 100mL 100 mL, Univers (ISOVUE 07-30 9109 Intravenou ity o f 370-500 mL) 23:48: 23:48 s, ONCE, 1 [place] injection 00 :00 dose, On Medica l 100 mL Sat Branch 05/30/21 at 1800, Routine ibuprofen 2020-07 Yes [id number] 600mg Take 1 Univers 600 mg 1-20 [id number] tablet by ity of tablet 00:00: mouth [place] 00 every 6 Medical (six) Branch hours as needed for Pain (scale 4-6). traMADoL 50 2020-07 Yes [id number] 50mg Take 1 Univ ers mg tablet 1-20 tablet by ity o f 00:00: mouth [place] 00 every 6 Medical (six) Branch hours as needed for Pain (scale 7-10). Indication s: acute pain ibuprofen 2020-07 Yes [id number] 600mg Take 1 Univers 600 mg 1-20 [id number] tablet by ity of tablet 00:00: mouth [place] 00 every 6 Medical (six) Branch hours as needed for Pain (scale 4-6). traMADoL 50 2020-07 Yes [id number] 50mg Take 1 Univ ers mg tablet 1-20 tablet by ity o f 00:00: mouth [place] 00 every 6 Medical (six) Branch hours as needed for Pain (scale 7-10). Indication s: acute pain ibuprofen 2020-07 Yes [id number] 600mg Take 1 Univers 600 mg 1-20 [id number] tablet by ity of tablet 00:00: mouth [place] 00 every 6 Medical (six) Branch hours as needed for Pain (scale 4-6). traMADoL 50 2020-07 Yes [id number] 50mg Take 1 Univ ers mg tablet 1-20 tablet by ity o f 00:00: mouth [place] 00 every 6 Medical (six) Branch hours as needed for Pain (scale 7-10). Indication s: acute pain ibuprofen 2020-07 Yes [id number] 600mg Take 1 Univers 600 mg 1-20 [id number] tablet by ity of tablet 00:00: mouth [place] 00 every 6 Medical (six) Branch hours as needed for Pain (scale 4-6). traMADoL 50 2020-07 Yes [id number] 50mg Take 1 Univ ers mg tablet 1-20 tablet by ity o f 00:00: mouth [place] 00 every 6 Medical (six) Branch hours as needed for Pain (scale 7-10). Indication s: acute pain ibuprofen 2020-07 Yes [id number] 600mg Take 1 Univers 600 mg 1-20 [id number] tablet by ity of tablet 00:00: mouth [place] 00 every 6 Medical (six) Branch hours as needed for Pain (scale 4-6). ibuprofen 2020-07 Yes [id number] 600mg Take 1 Univers 600 mg 07-30 [id number] tablet by ity of tablet 00:00: mouth [place] 00 every 6 Medical (six) Branch hours as needed for Pain (scale 4-6). ibuprofen 2020-07- No [id number] 600mg Take 1 Univers 600 mg 07-30 [id number] tablet by ity o f tablet 00:00: 00:00 mouth [place] 00 :00 every 6 Medical (six) Branch hours as needed for Pain (scale 4-6). traMADoL 50 2020-07- No [id number] 50mg Take 1 Uni vers mg tablet [id number] tablet by ity of 00:00: 00:00 mouth [...] AM 07-11 00:00: 00 TAKE 1 TAB 1 No PO Q AM 07-11 00:00: 00 sumatriptan 2020-07 No 1mg 50 mg 0-07 tablet 00:00: 00 sumatriptan 2020-07 No 1mg 50 mg 0-07 tablet 00:00: 00 sumatriptan 2020-07 No 1mg 50 mg 0-07 tablet 00:00: 00 sumatriptan 1-1 No 1mg 50 mg 0-07 tablet 00:00: 00 sumatriptan 1-1 No 1mg 50 mg 0-07 tablet 00:00: 00 sumatriptan 1-1 No 1mg 50 mg 0-07 tablet 00:00: 00 sumatriptan 1-1 No 1mg 50 mg 0-07 tablet 00:00: 00 sumatriptan 1-1 No 1mg 50 mg 0-07 tablet 00:00: 00 sumatriptan 1-1 No 1mg 50 mg 0-07 tablet 00:00: 00 Dose 1-1 No Unknown 0-07 00:00: 00 Dose 1-1 No Unknown 0-07 00:00: 00 Tresiba 1-0 No (3 mL) [...] 00 Janumet XR 2020-0 No 1mg 100 -28 mg-1,000 mg 00:00: tablet,exte 00 nded release amitriptyli 2020-0 No 1mg ne 10 mg - tablet 00:00: 00 gabapentin 2021-0 No 3mg 300 mg - capsule 00:00: 00 Dose 2021-0 No Unknown 04-07 00:00: 00 Tresiba 1-0 [...] 10 mg -28 tablet 00:00: 00 gabapentin 1-0 No 3mg [...] 9-13 00:00: 00 Dose 2020-0 No Unknown - 00:00: 00 Dose 2020-0 No Unknown - 00:00: 00 Dose 2020-0 No Unknown - 00:00: 00 Dose 2020-0 No Unknown - 00:00: 00 Dose 2020-0 No Unknown - 00:00: 00 VASCEPA 1 2020-0 Yes [id number] TAKE 3 U nivers gram 9-10 CAPSULES ity of capsule 00:00: BY MOUTH [place] EVERY DAY Medical Branch VASCEPA 1 2020-0 Yes [id number] TAKE 3 U nivers gram 9-10 CAPSULES ity of capsule 00:00: BY MOUTH [place] EVERY DAY Medical Branch VASCEPA 1 2020-0 Yes [id number] TAKE 3 U nivers gram 9-10 CAPSULES ity of capsule 00:00: BY MOUTH [place] EVERY DAY Medical Branch VASCEPA 1 2020-0 Yes [id number] TAKE 3 U nivers gram 9-10 CAPSULES ity of capsule 00:00: BY MOUTH [place] EVERY DAY Medical Branch VASCEPA 1 2020-0 Yes [id number] TAKE 3 U nivers gram 9-10 CAPSULES ity of capsule 00:00: BY MOUTH [place] EVERY DAY Medical Branch VASCEPA 1 2020-0 Yes [id number] TAKE 3 U nivers gram 9-10 CAPSULES ity of capsule 00:00: BY MOUTH [place] EVERY DAY Medical Branch VASCEPA 1 2020-0 Yes [id number] TAKE 3 U nivers gram 9-10 CAPSULES ity of capsule 00:00: BY MOUTH [place] EVERY DAY Medical Branch VASCEPA 1 2020-0 Yes [id number] TAKE 3 U nivers gram 9-10 CAPSULES ity of capsule 00:00: BY MOUTH [place] EVERY DAY Medical Branch VASCEPA 1 2020-0 Yes [id number] TAKE 3 U nivers gram 9-10 CAPSULES ity of capsule 00:00: BY MOUTH [place] EVERY DAY Medical Branch VASCEPA 1 2020-0 Yes [id number] TAKE 3 U nivers gram 9-10 CAPSULES ity of capsule 00:00: BY MOUTH [place] EVERY DAY Medical Branch azithromyci 1-0 No mg n 250 mg [...] DAILY 00:00: UNTIL 00 FINISHED. TAKE 1 2021-0 No TABLET 8-06 TWICE [...] 100 mg 8-04 capsule 00:00: 00 triamcinolo 1-0 No % ne 8-04 acetonide 00:00: 0.1 % 00 topical cream Macrobid 1-0 No 1mg 100 mg 8-04 capsule 00:00: 00 triamcinolo 1-0 No % ne 8-04 acetonide 00:00: 0.1 % 00 topical cream Macrobid 1-0 No 1mg 100 mg 8-04 capsule 00:00: 00 triamcinolo 1-0 No % ne 8-04 acetonide 00:00: 0.1 % 00 topical cream Macrobid 1-0 No 1mg 100 mg 8-04 capsule 00:00: 00 Dose 2021-0 No Unknown 8-04 00:00: 00 Dose 1-0 No Unknown 8-04 00:00: 00 Dose 2021-0 No Unknown 8-04 00:00: 00 Dose 1-0 No Unknown 8-04 00:00: 00 Tresiba 1-0 [...] 5 mg tablet 730 00:00: 00 glimepiride 1-0 No 1mg 4 mg tablet 30 00:00: [...] No Unknown 7-30 00:00: 00 TAKE 1 2021-0 No TABLET 7-30 DAILY. 00:00: 00 TAKE 1 2021-0 No TABLET 7-30 TWICE 00:00: DAILY. 00 [...] 00 nded release icosapent 2020-0 2020- No [id number] 3g Take 3 Univers ethyL 12-10 09-10 capsules ity of (VASCEPA) 1 00:00: 00:00 by mouth [place] gram 00 :00 daily. Medical capsule Branch Tresiba 2020-0 No (3 mL) FlexTouch 6-01 U-100 00:00: insulin 100 00 unit/mL (3 mL) subcutaneou s pen alogliptin 2020-0 No 1mg 25 mg - tablet 00:00: 00 hydrochloro 2020-0 No 1mg thiazide 25 6-01 mg tablet 00:00: 00 metformin 2020-0 No 1mg 850 mg - tablet 00:00: 00 gabapentin 2021-0 No 1mg [...] 6- 00:00: 00 Dose 2020-0 No Unknown 6 00:00: 00 [place] 2020-0 No (3 mL) FlexTouch 6-01 U-100 00:00: insulin 100 00 unit/mL (3 mL) subcutaneou s pen gabapentin 2020-0 No 1mg 800 mg 6-01 tablet 00:00: 00 Dose 2020-0 No Unknown 6 00:00: 00 Dose 2020-0 No Unknown 6- 00:00: 00 Dose 2020-0 No Unknown 6 00:00: 00 Lactobacill Yes Take by [facility] vers [facility] 5-27 mouth. ity of acidophilus 22:32: [place] (PROBIOTIC 10 Medical ORAL) [place] MULTIVITAMI Yes Take by Uni vers N ORAL 5-27 mouth. ity of 22:32: [address] multivitami Yes Take by Uni vers n with 5-27 mouth. ity of minerals 22:32: [place] (HAIR,SKIN 10 Medical AND NAILS Branch ORAL) Lactobacill Yes Take by Uni vers us 5-27 mouth. ity of acidophilus 17:32: [place] (PROBIOTIC 10 Medical ORAL) [place] MULTIVITAMI Yes Take by Uni vers N ORAL 5-27 mouth. ity of 17:32: [address] multivitami 0 Yes Take by Uni vers n with 5-27 mouth. ity of minerals 17:32: [place] (HAIR,SKIN 10 Medical AND NAILS Branch ORAL) Lactobacill 0 Yes Take by Uni vers us 5-27 mouth. ity of acidophilus 17:32: [place] (PROBIOTIC 10 Medical ORAL) [place] MULTIVITAMI Yes Take by Uni vers N ORAL 5-27 mouth. ity of 17:32: [address] multivitami 0 Yes Take by Uni vers n with 5-27 mouth. ity of minerals 17:32: [place] (HAIR,SKIN 10 Medical AND NAILS Branch ORAL) Lactobacill 0 Yes Take by Uni vers us 5-27 mouth. ity of acidophilus 17:32: [place] (PROBIOTIC 10 Medical ORAL) [place] MULTIVITAMI 0 Yes Take by Uni vers N ORAL 5-27 mouth. ity of 17:32: [place] [address] Medical Branch multivitami 0 Yes Take by Uni vers n with 5-27 mouth. ity of minerals 17:32: [place] (HAIR,SKIN 10 Medical AND NAILS Branch ORAL) Lactobacill 0 Yes Take by Uni vers us 5-27 mouth. ity of acidophilus 17:32: [place] (PROBIOTIC 10 Medical ORAL) Branch MULTIVITAMI 0 Yes Take by Uni vers N ORAL 5-27 mouth. ity of 17:32: [place] [address] Medical [place] multivitami 0 Yes Take by Uni vers n with 5-27 mouth. ity of minerals 17:32: [place] (HAIR,SKIN 10 Medical AND NAILS Branch ORAL) Lactobacill 0 Yes Take by Uni vers us 5-27 mouth. ity of acidophilus 17:32: [place] (PROBIOTIC 10 Medical ORAL) [place] MULTIVITAMI Yes Take by Uni vers N ORAL 5-27 mouth. ity of 17:32: [place] [address] Medical [place] multivitami 0 Yes Take by Uni vers n with 5-27 mouth. ity of minerals 17:32: [place] (HAIR,SKIN 10 Medical AND NAILS Branch ORAL) Lactobacill 0 Yes Take by Uni vers us 5-27 mouth. ity of acidophilus 17:32: [place] (PROBIOTIC 10 Medical ORAL) [place] MULTIVITAMI 0 Yes Take by Uni vers N ORAL 5-27 mouth. ity of 17:32: [place] [address] Medical Branch multivitami 2020-0 Yes Take by Uni vers n with 5-27 mouth. ity of minerals 17:32: [place] (HAIR,SKIN 10 Medical AND NAILS Branch ORAL) Diflucan 2020-0 No 1mg 150 mg 5-18 tablet 00:00: 00 Diflucan 202-0 No 1mg 150 mg 5-18 tablet 00:00: 00 Diflucan 202-0 No 1mg 150 mg 5-18 tablet 00:00: [...] Medical times Branch daily with meals. fenofibrate Yes 134mg Take 1 Uni vers micronized 4-30 capsule by ity of 134 mg 00:00: mouth [place] capsule 00 daily. Medical Branch metFORMIN Yes [id number] 1000mg Take 1 [facility] 1,000 mg 4-30 tablet by ity of tablet 00:00: mouth (two) Medical times Branch daily with meals. blood sugar Yes [id number] Use daily [facility] diagnostic 4-30 Dx E11.65 ity of (ONETOUCH 00:00: [place] VERIO TEST 00 Medical STRIPS) Branch strip lancets Yes [id number] Use daily [facility] (ONE TOUCH 4-30 Dx E11.65 ity of DELICA) 33 00:00: [place] gauge Misc 00 Medical Branch gabapentin Yes [id number] 600mg Take 1 [facility] 600 mg 4-30 tablet by ity of tablet 00:00: mouth (two) Medical times Branch daily. lisinopriL Yes [id number] 2.5mg Take 1 [facility] 2.5 mg 4-30 tablet by ity of tablet 00:00: mouth 00 daily. Medical Branch insulin Yes [id number] 35U inject 35 [facility] degludec 4-30 Units ity of (TRESIBA 00:00: [place] FLEXT[place]CH 00 skin 2 Medical U-100) 100 (two) Branch unit/mL (3 times mL) InPn daily. atorvastati Yes 40mg Take 1 Univ ers n 40 mg 4-30 tablet by ity of tablet 00:00: mouth at [place] 00 bedtime. Medical Branch fenofibrate Yes 134mg Take 1 Uni vers micronized 4-30 capsule by ity of 134 mg 00:00: mouth [place] capsule 00 daily. Medical Branch metFORMIN Yes [id number] 1000mg Take 1 [facility] 1,000 mg 4-30 tablet by ity of tablet 00:00: mouth 2 (two) Medical times Branch daily with meals. blood sugar Yes [id number] Use daily [facility] diagnostic 4-30 Dx E11.65 ity of (ONETOUCH 00:00: [place] VERIO TEST 00 Medical STRIPS) Branch strip lancets 0 Yes [id number] Use daily [facility] (ONE TOUCH 4-30 Dx E11.65 ity of DELICA) 33 00:00: [facility] Medical Branch gabapentin Yes [id number] 600mg Take 1 [facility] 600 mg 4-30 tablet by ity of tablet 00:00: mouth 2 [place] (two) Medical times Branch daily. lisinopriL Yes [id number] 2.5mg Take 1 [facility] 2.5 mg 4-30 tablet by ity of tablet 00:00: mouth daily. Medical Branch insulin Yes [id number] 35U inject 35 [facility] degludec 4-30 Units ity of (TRESIBA [facility]:00[facility] skin 2 Medical U-100) 100 (two) Branch unit/mL (3 times mL) InPn daily. atorvastati Yes 40mg Take 1 Univ ers n 40 mg 4-30 tablet by ity of tablet 00:00: mouth at [place] 00 bedtime. Medical Branch fenofibrate Yes 134mg Take 1 Uni vers micronized 4-30 capsule by ity of 134 mg 00:00: mouth [facility] 00 daily. Medical Branch metFORMIN Yes [id number] 1000mg Take 1 [facility] 1,000 mg 4-30 tablet by ity of tablet 00:00: mouth [place] (two) Medical times Branch daily with meals. blood sugar Yes [id number] Use daily [facility] diagnostic 4-30 Dx E11.65 ity of (ONETOUCH 00:00: [place] VERIO TEST 00 Medical STRIPS) Branch strip lancets 2020-0 Yes [id number] Use daily [facility] (ONE TOUCH 4-30 Dx E11.65 ity of DELICA) 33 00:00: [facility] 00 Medical Branch gabapentin 2020-0 Yes [id number] 600mg Take 1 [facility] 600 mg 4-30 tablet by ity of tablet 00:00: mouth 2 [place] (two) Medical times Branch daily. lisinopriL Yes [id number] 2.5mg Take 1 [facility] 2.5 mg 4-30 tablet by ity of tablet 00:00: mouth [place] 00 daily. Medical Branch insulin Yes [id number] 35U inject 35 [facility] degludec 4-30 Units ity of (TRESIBA 00:00: [place] FLEXT[place] 00 skin 2 Medical U-100) 100 (two) Branch unit/mL (3 times mL) InPn daily. atorvastati Yes 40mg Take 1 Univ ers n 40 mg 4-30 tablet by ity of tablet 00:00: mouth at [place] 00 bedtime. Medical Branch fenofibrate Yes 134mg Take 1 Uni vers micronized 4-30 capsule by ity of 134 mg 00:00: mouth [place] capsule 00 daily. Medical Branch metFORMIN Yes [id number] 1000mg Take 1 [facility] 1,000 mg 4-30 tablet by ity of tablet 00:00: mouth 2 [place] 00 (two) Medical times Branch daily with meals. blood sugar Yes [id number] Use daily [facility] diagnostic 4-30 Dx E11.65 ity of (ONETOUCH 00:00: [place] VERIO TEST 00 Medical STRIPS) Branch strip lancets Yes [id number] Use daily [facility] (ONE TOUCH 4-30 Dx E11.65 ity of DELICA) 33 00:00: [place] gauge Misc 00 Medical Branch gabapentin 0 Yes [id number] 600mg Take 1 [facility] 600 mg 4-30 tablet by ity of tablet 00:00: mouth 2 [place] 00 (two) Medical times Branch daily. lisinopriL Yes [id number] 2.5mg Take 1 [facility] 2.5 mg 4-30 tablet by ity of tablet 00:00: mouth [place] 00 daily. Medical Branch insulin Yes [id number] 35U inject 35 [facility] degludec 4-30 Units ity of (TRESIBA 00:00: [place] FLEXTOUCH 00 skin 2 Medical U-100) 100 (two) Branch unit/mL (3 times mL) InPn daily. atorvastati Yes 40mg Take 1 Univ ers n 40 mg 4-30 tablet by ity of tablet 00:00: mouth at [place] 00 bedtime. Medical Branch fenofibrate Yes 134mg Take 1 Uni vers micronized 4-30 capsule by ity of 134 mg 00:00: mouth [place] capsule 00 daily. Medical Branch metFORMIN 0 Yes [id number] 1000mg Take 1 [facility] 1,000 mg 4-30 tablet by ity of tablet 00:00: mouth 2 [place] (two) Medical times Branch daily with meals. blood sugar 0 Yes [id number] Use daily [facility] diagnostic 4-30 Dx E11.65 ity of (ONETOUCH 00:00: [place] VERIO TEST 00 Medical STRIPS) Branch strip lancets 0 Yes [id number] Use daily [facility] (ONE TOUCH 4-30 Dx E11.65 ity of DELICA) 33 00:00: [place] gauge Misc 00 Medical Branch gabapentin 0 Yes [id number] 600mg Take 1 [facility] 600 mg 4-30 tablet by ity of tablet 00:00: mouth 2 [place] (two) Medical times Branch daily. lisinopriL Yes [id number] 2.5mg Take 1 [facility] 2.5 mg 4-30 tablet by ity of tablet 00:00: mouth [place] 00 daily. Medical Branch insulin Yes [id number] 35U inject 35 [facility] degludec 4-30 Units ity of (TRESIBA 00:00: [place] FLEXTOUCH 00 skin 2 Medical U-100) 100 (two) Branch unit/mL (3 times mL) InPn daily. atorvastati Yes 40mg Take 1 Univ ers n 40 mg 4-30 tablet by ity of tablet 00:00: mouth at [place] 00 bedtime. Medical Branch fenofibrate Yes 134mg Take 1 Uni vers micronized 4-30 capsule by ity of 134 mg 00:00: mouth [place] capsule 00 daily. Medical Branch metFORMIN Yes [id number] 1000mg Take 1 [facility] 1,000 mg 4-30 tablet by ity of tablet 00:00: mouth 2 [place] (two) Medical times Branch daily with meals. blood sugar Yes [id number] Use daily [facility] diagnostic 4-30 Dx E11.65 ity of (ONETOUCH 00:00: [place] VERIO TEST 00 Medical STRIPS) Branch strip lancets Yes [id number] Use daily [facility] (ONE TOUCH 4-30 Dx E11.65 ity of DELICA) 33 00:00: [facility] 00 Medical Branch gabapentin Yes [id number] 600mg Take 1 [facility] 600 mg 4-30 tablet by ity of tablet 00:00: mouth 2 (two) Medical times Branch daily. lisinopriL Yes [id number] 2.5mg Take 1 [facility] 2.5 mg 4-30 tablet by ity of tablet 00:00: mouth [place] 00 daily. Medical Branch insulin Yes [id number] 35U inject 35 [facility] degludec 4-30 Units ity of (TRESIBA 00:00: [place] FLEXTOUCH 00 skin 2 Medical U-100) 100 (two) Branch unit/mL (3 times mL) InPn daily. atorvastati Yes 40mg Take 1 Univ ers n 40 mg 4-30 tablet by ity of tablet 00:00: mouth at [place] 00 bedtime. Medical Branch fenofibrate Yes 134mg Take 1 Uni vers micronized 4-30 capsule by ity of 134 mg 00:00: mouth [place] capsule 00 daily. Medical Branch metFORMIN Yes [id number] 1000mg Take 1 [facility] 1,000 mg 4-30 tablet by ity of tablet 00:00: mouth 2 [place] (two) Medical times Branch daily with meals. blood sugar Yes [id number] Use daily [facility] diagnostic 4-30 Dx E11.65 ity of (ONETOUCH 00:00: [place] VERIO TEST 00 Medical STRIPS) Branch strip lancets Yes [id number] Use daily Univers (ONE TOUCH 4-30 Dx E11.65 ity of DELICA) 33 00:00: [facility] 00 Medical Branch gabapentin Yes [id number] 600mg Take 1 [facility] 600 mg 4-30 tablet by ity of tablet 00:00: mouth 2 [place] (two) Medical times Branch daily. lisinopriL Yes [id number] 2.5mg Take 1 [facility] 2.5 mg 4-30 tablet by ity of tablet 00:00: mouth [place] 00 daily. Medical Branch insulin Yes [id number] 35U inject 35 [facility] degludec 4-30 Units ity of (TRESIBA 00:00: [place] FLEXTOUCH 00 skin 2 Medical U-100) 100 (two) Branch unit/mL (3 times mL) InPn daily. atorvastati Yes 40mg Take 1 Univ ers n 40 mg 4-30 tablet by ity of tablet 00:00: mouth at [place] 00 bedtime. Medical Branch fenofibrate Yes 134mg Take 1 Uni vers micronized 4-30 capsule by ity of 134 mg 00:00: mouth [place] capsule 00 daily. Medical Branch metFORMIN Yes [id number] 1000mg Take 1 [facility] 1,000 mg 4-30 tablet by ity of tablet 00:00: mouth 2 (two) Medical times Branch daily with meals. blood sugar Yes [id number] Use daily [facility] diagnostic 4-30 Dx E11.65 ity of (ONETOUCH 00:00: [place] VERIO TEST 00 Medical STRIPS) Branch strip lancets Yes [id number] Use daily [facility] (ONE TOUCH 4-30 Dx E11.65 ity of DELICA) 33 00:00: [facility] 00 Medical Branch gabapentin Yes [id number] 600mg Take 1 [facility] 600 mg 4-30 tablet by ity of tablet 00:00: mouth 2 [place] (two) Medical times Branch daily. lisinopriL Yes [id number] 2.5mg Take 1 [facility] 2.5 mg 4-30 tablet by ity of tablet 00:00: mouth [place] 00 daily. Medical Branch fenofibrate Yes 134mg Take 1 Uni vers micronized 4-30 capsule by ity of 134 mg 00:00: mouth [place] capsule 00 daily. Medical Branch metFORMIN Yes [id number] 1000mg Take 1 [facility] 1,000 mg 4-30 tablet by ity of tablet 00:00: mouth 2 [place] (two) Medical times Branch daily with meals. blood sugar Yes [id number] Use daily [facility] diagnostic 4-30 Dx E11.65 ity of (ONETOUCH 00:00: [place] VERIO TEST 00 Medical STRIPS) Branch strip lancets 2020- Yes [id number] Use daily Univers (ONE TOUCH 4-30 Dx E11.65 ity of DELICA) 33 00:00: [facility] 00 Medical Branch gabapentin Yes [id number] 600mg Take 1 [facility] 600 mg 4-30 tablet by ity of tablet 00:00: mouth 2 [place] 00 (two) Medical times Branch daily. lisinopriL Yes [id number] 2.5mg Take 1 [facility] 2.5 mg 4-30 tablet by ity of tablet 00:00: mouth [place] 00 daily. Medical Branch fenofibrate Yes 134mg Take 1 Uni vers micronized 4-30 capsule by ity of 134 mg 00:00: mouth [place] capsule 00 daily. Medical Branch metFORMIN Yes [id number] 1000mg Take 1 [facility] 1,000 mg 4-30 tablet by ity of tablet 00:00: mouth 2 [place] 00 (two) Medical times Branch daily with meals. blood sugar Yes [id number] Use daily [facility] diagnostic 4-30 Dx E11.65 ity of (ONETOUCH 00:00: [place] VERIO TEST 00 Medical STRIPS) Branch strip lancets Yes [id number] Use daily Univers (ONE TOUCH 4-30 Dx E11.65 ity of DELICA) 33 00:00: [facility] 00 Medical Branch gabapentin Yes [id number] 600mg Take 1 [facility] 600 mg 4-30 tablet by ity of tablet 00:00: mouth 2 [place] 00 (two) Medical times Branch daily. lisinopriL Yes [id number] 2.5mg Take 1 [facility] 2.5 mg 4-30 tablet by ity of tablet 00:00: mouth [place] 00 daily. Medical Branch insulin 2022- No [id number] 35U inject 35 [facility] degludec 4-30 02-20 Units ity of (TRESIBA 00:00: 00:00 under the [place] as FLEXTOUCH 00 :00 skin 2 Medical U-100) 100 (two) Branch unit/mL (3 times mL) InPn daily. atorvastati 2022- No 40mg Take 1 Uni vers n 40 mg 4-30 02-20 tablet by ity of tablet 00:00: 00:00 mouth at [place] 00 :00 bedtime. Medical Branch glimepiride No 1mg 4 mg [...] 1-0 No Unknown 3-18 00:00: 00 T[place] 2021-0 [...] 1,000 mg 2-23 tablet 00:00: 00 atorvastati 2020-1 No 1mg n 40 mg 2-23 tablet 00:00: 00 gabapentin 2020-1 No 1mg 600 mg 2-23 tablet 00:00: 00 lisinopril 2020-1 No 1mg [...] 1mg 600 mg 0-13 tablet 00:00: 00 glimepiride 2020-0 No 1mg [...] glimepiride 2020-0 No 1mg 1 mg tablet 8-31 00:00: 00 metformin 2020-0 No 1mg 1,000 [...] 00 metformin 2020-0 No 1mg 1,000 mg 831 tablet 00:00: 00 Victoza 2020-0 No (18 [...] glimepiride 2020-0 No 1mg 1 mg tablet 7 00:00: 00 metformin 2020-0 No 1mg 1,000 mg 7-18 tablet 00:00: 00 atorvastati 2020-0 No 1mg n 40 mg 7-18 tablet 00:00: 00 hydrochloro 2020-0 No 1mg thiazide 25 7-18 mg tablet 00:00: 00 glimepiride 2020-0 No 1mg 1 mg tablet 01-25 00:00: 00 metformin 2020-0 No 1mg 1,000 [...] mg/3 00 mL) subcutane s pen injector Victoza 2020-0 No (18 [...] lisinopril 2020-0 No 1mg 5 mg tablet -12 00:00: 00 lisinopril 2020-0 No 1mg 5 mg tablet 5- 00:00: 00 lisinopril 2020-0 No 1mg 5 mg tablet 5-12 00:00: 00 lisinopril 2020-0 No 1mg 5 mg tablet -12 00:00: 00 lisinopril 2020-0 No 1mg 5 mg tablet -12 00:00: 00 lisinopril 2020-0 No 1mg 5 mg tablet -12 00:00: 00 lisinopril 2020-0 No 1mg 5 mg tablet -12 00:00: 00 lisinopril 2020-0 No 1mg 5 mg tablet 5-12 00:00: 00 nystatin-tr 2020-0 Yes [id number] Q.25D Apply [facility] iamcinolone 4-[address] (MYCOLOG 00:00: 4 (four) Hospi ta II) 00 times a l 100,000-0.1 day as unit/g-% needed cream (vaginal itching or infection) . To outer vagina nystatin-tr 2020-0 Yes [id number] Q.25D Apply [facility] iamcinolone 4-[address] (MYCOLOG 00:00: 4 (four) Hospi ta II) 00 times a l 100,000-0.1 day as unit/g-% needed cream (vaginal itching or infection) . To outer vagina nystatin-tr 2020-0 Yes [id number] Q.25D Apply [facility] iamcinolone 4-[address] (MYCOLOG 00:00: 4 (four) Hospi ta II) 00 times a l 100,000-0.1 day as unit/g-% needed cream (vaginal itching or infection) . To outer vagina nystatin-tr 2020-0 Yes [id number] Q.25D Apply [facility] iamcinolone 4-[address] (MYCOLOG 00:00: 4 (four) Hospi ta II) 00 times a l 100,000-0.1 day as unit/g-% needed cream (vaginal itching or infection) . To outer vagina nystatin-tr 2020-0 Yes [id number] Q.25D Apply [facility] iamcinolone 4-[address] (MYCOLOG 00:00: 4 (four) Hospi ta II) 00 times a l 100,000-0.1 day as unit/g-% needed cream (vaginal itching or infection) . To outer vagina nystatin-tr 2020-0 Yes [id number] Q.25D Apply [facility] iamcinolone 4-[address] (MYCOLOG 00:00: 4 (four) Hospi ta II) 00 times a l 100,000-0.1 day as unit/g-% needed cream (vaginal itching or infection) . To outer vagina nystatin-tr 2020-0 Yes [id number] Q.25D Apply [facility] iamcinolone 4-[address] (MYCOLOG 00:00: 4 (four) Hospi ta II) 00 times a l 100,000-0.1 day as unit/g-% needed cream (vaginal itching or infection) . To outer vagina nystatin-tr 2020-0 Yes [id number] Q.25D Apply [facility] iamcinolone 4-[address] (MYCOLOG 00:00: 4 (four) Hospi ta II) 00 times a l 100,000-0.1 day as unit/g-% needed cream (vaginal itching or infection) . To outer vagina nystatin-tr 2020-0 Yes [id number] Q.25D Apply [facility] iamcinolone 4-[address] (MYCOLOG 00:00: 4 (four) Hospi ta II) 00 times a l 100,000-0.1 day as unit/g-% needed cream (vaginal itching or infection) . To outer vagina nystatin-tr 2020-0 Yes [id number] Q.25D Apply [facility] iamcinolone 4-[address] (MYCOLOG 00:00: 4 (four) Hospi ta II) 00 times a l 100,000-0.1 day as unit/g-% needed cream (vaginal itching or infection) . To outer vagina nystatin-tr 2020-0 Yes [id number] Q.25D Apply [facility] iamcinolone 4-[address] (MYCOLOG 00:00: 4 (four) Hospi ta II) 00 times a l 100,000-0.1 day as unit/g-% needed cream (vaginal itching or infection) . To outer vagina nystatin-tr 2020-0 Yes [id number] Q.25D Apply [facility] iamcinolone 4-[address] (MYCOLOG 00:00: 4 (four) Hospi ta II) 00 times a l 100,000-0.1 day as unit/g-% needed cream (vaginal itching or infection) . To outer vagina nystatin-tr 2020-0 Yes [id number] Q.25D Apply [facility] iamcinolone 4-[address] (MYCOLOG 00:00: 4 (four) Hospi ta II) 00 times a l 100,000-0.1 day as unit/g-% needed cream (vaginal itching or infection) . To outer vagina nystatin-tr 2020-0 Yes [id number] Q.25D Apply [facility] iamcinolone 4-[address] (MYCOLOG 00:00: 4 (four) Hospi ta II) 00 times a l 100,000-0.1 day as unit/g-% needed cream (vaginal itching or infection) . To outer vagina nystatin-tr 2020-0 Yes [id number] Q.25D Apply [facility] iamcinolone 4-[address] (MYCOLOG 00:00: 4 (four) Hospi ta II) 00 times a l 100,000-0.1 day as unit/g-% needed cream (vaginal itching or infection) . To outer vagina nystatin-tr 2020-0 Yes [id number] Q.25D Apply [facility] iamcinolone 4-[address] [...] 0.5 mg (2 00:00: mg/1.5 mL) 00 [facility] Oz[facility] 2020-0 No mg(2 0.25 mg or 3-30 mg/1.5 0.5 mg (2 00:00: mL) mg/1.5 mL) [facility]-0 No (5)/125 0.25 mg or 3-30 -30(10) 0.5 mg (2 00:00: mg/1.5 mL) [facility] Ozem[facility] 2020-0 No (5)/125 0.25 mg or 3-30 -30(10) 0.5 mg (2 00:00: mg/1.5 mL) 00 subcutane s pen injector Ozempic 2020-0 No (5)/125 0.25 mg or 3-30 -30(10) 0.5 mg (2 00:00: mg/1.5 mL) 00 subcutane s pen injector Ozempic 2020-0 No (5)/125 0.25 mg or 3-30 -30(10) 0.5 mg (2 00:00: mg/1.5 mL) [facility] 2020-0 No [...] subcutaneou s pen injector HEParin 2020-0 Yes [id number] Q7D Meth ally (porcine) 3-24 st injection 17:00: [facility] 20,000 00 l Units HEParin 2020-0 Yes [id number] Q7D Meth ally (porcine) 3-24 st injection 17:00: [facility] 20,000 00 l Units HEParin 2020-0 Yes [id number] Q7D Meth ally (porcine) 3-24 st injection 17:00: [facility] 20,000 00 l Units HEParin 2020-0 Yes [id number] Q7D Meth ally (porcine) 3-24 st injection 17:00: [facility] 20,000 00 l Units HEParin 2020-0 Yes [id number] Q7D Meth ally (porcine) 3-24 st injection 17:00: [facility]osp[facility] 20,000 00 l Units HEParin 2020-0 Yes [id number] Q7D Meth ally (porcine) 3-24 st injection 17:00: [facility]osp[facility] 20,000 00 l Units HEParin 2020-0 Yes [id number] Q7D Meth ally (porcine) 3-24 st injection 17:00: [facility] 20,000 00 l Units HEParin 2020-0 Yes [id number] Q7D Meth ally (porcine) 3-24 st injection 17:00: [facility]osp[facility] 20,000 00 l Units HEParin 2020-0 Yes [id number] Q7D Meth ally (porcine) 3-24 st injection 17:00: [facility]osp[facility] 20,000 00 l Units HEParin 2020-0 Yes [id number] Q7D Meth ally (porcine) 3-24 st injection 17:00: [facility]osp[facility] 20,000 00 l Units HEParin 2020-0 Yes [id number] Q7D Meth ally (porcine) 3-24 st injection 17:00: [facility]osp[facility] 20,000 00 l Units HEParin 2020-0 Yes [id number] Q7D Meth ally (porcine) 3-24 st injection 17:00: [facility]osp[facility] 20,000 00 l Units HEParin 2020-0 Yes [id number] Q7D Meth ally (porcine) 3-24 st injection 17:00: [facility]osp[facility] 20,000 00 l Units HEParin 2020-0 Yes [id number] Q7D Meth ally (porcine) 3-24 st injection 17:00: [facility]osp[facility] 20,000 00 l Units HEParin 2020-0 Yes [id number] Q7D Meth ally (porcine) 3-24 st injection 17:00: [facility]osp[facility] 20,000 00 l Units HEParin 2020-0 Yes [id number] Q7D Meth ally (porcine) 3-24 st injection 17:00: [facility] 20,000 00 l Units conjugated 2020-0 Yes [id number] Apply 0.5 [facility] estrogens 3-[address] (Premarin) 00:00: vaginally [facility] 0.625 00 either l mg/gram internally vaginal (applicato cream r) or with finger to outer vagina twice weekly at night conjugated 2020-0 Yes [id number] Apply 0.5 [facility] estrogens 3-[address] (Premarin) 00:00: vaginally [facility] 0.625 00 either l mg/gram internally vaginal (applicato cream r) or with finger to outer vagina twice weekly at night conjugated 2020-0 Yes [id number] Apply 0.5 [facility] estrogens 3-[address] (Premarin) 00:00: vaginally [facility] [place] 0.625 00 either l mg/gram internally vaginal (applicato cream r) or with finger to outer vagina twice weekly at night conjugated 2020-0 Yes [id number] Apply 0.5 [facility] estrogens 3-[address] (Premarin) 00:00: vaginally [facility] 0.625 00 either l mg/gram internally vaginal (applicato cream r) or with finger to outer vagina twice weekly at night conjugated 2020-0 Yes [id number] Apply 0.5 [facility] estrogens 3-[address] (Premarin) 00:00: vaginally [facility] 0.625 00 either l mg/gram internally vaginal (applicato cream r) or with finger to outer vagina twice weekly at night conjugated 2020-0 Yes [id number] Apply 0.5 [facility] estrogens 3-[address] (Premarin) 00:00: vaginally [facility] 0.625 00 either l mg/gram internally vaginal (applicato cream r) or with finger to outer vagina twice weekly at night conjugated 2020-0 Yes [id number] Apply 0.5 [facility] estrogens 3-[address] (Premarin) 00:00: vaginally [facility] 0.625 00 either l mg/gram internally vaginal (applicato cream r) or with finger to outer vagina twice weekly at night conjugated 2020-0 Yes [id number] Apply 0.5 [facility] estrogens 3-[address] (Premarin) 00:00: vaginally [facility] 0.625 00 either l mg/gram internally vaginal (applicato cream r) or with finger to outer vagina twice weekly at night conjugated 2020-0 Yes [id number] Apply 0.5 [facility] estrogens 3-[address] (Premarin) 00:00: vaginally [facility] 0.625 00 either l mg/gram internally vaginal (applicato cream r) or with finger to outer vagina twice weekly at night conjugated 2020-0 Yes [id number] Apply 0.5 [facility] estrogens 3-[address] (Premarin) 00:00: vaginally [facility] 0.625 00 either l mg/gram internally vaginal (applicato cream r) or with finger to outer vagina twice weekly at night conjugated 2020-0 Yes [id number] Apply 0.5 [facility] estrogens 3-[address] (Premarin) 00:00: vaginally [facility] 0.625 00 either l mg/gram internally vaginal (applicato cream r) or with finger to outer vagina twice weekly at night conjugated 2020-0 Yes [id number] Apply 0.5 [facility] estrogens 3-[address] (Premarin) 00:00: vaginally [facility] 0.625 00 either l mg/gram internally vaginal (applicato cream r) or with finger to outer vagina twice weekly at night conjugated 2020-0 Yes [id number] Apply 0.5 [facility] estrogens 3-[address] (Premarin) 00:00: vaginally [facility] 0.625 00 either l mg/gram internally vaginal (applicato cream r) or with finger to outer vagina twice weekly at night conjugated 2020-0 Yes [id number] Apply 0.5 [facility] estrogens 3-[address] (Premarin) 00:00: vaginally [facility] 0.625 00 either l mg/gram internally vaginal (applicato cream r) or with finger to outer vagina twice weekly at night conjugated 2020-0 Yes [id number] Apply 0.5 [facility] estrogens 3-[address] (Premarin) 00:00: vaginally [facility] 0.625 00 either l mg/gram internally vaginal (applicato cream r) or with finger to outer vagina twice weekly at night conjugated 2020-0 Yes [id number] Apply 0.5 [facility] estrogens 3-[address] (Premarin) 00:00: vaginally [facility] 0.625 00 either l mg/gram internally vaginal (applicato cream r) or with finger to outer vagina twice weekly at night amb custom 0 Yes [facility] compound 3-[address] 00:00: cream: 6% [facility] 00 gabapentin l , 2% Lidocaine, 2 % baclofen in water washable based. Apply 0.5 gram to outer vagina once or twice daily. amb custom 2019-0 Yes [facility] compound 3-[address] 00:00: cream: 6% [facility]osp[facility] 00 gabapentin l , 2% Lidocaine, 2 % baclofen in water washable based. Apply 0.5 gram to outer vagina once or twice daily. amb custom 0 Yes [facility] compound 3-[address] 00:00: cream: 6% [facility] 00 gabapentin l , 2% Lidocaine, 2 % baclofen in water washable based. Apply 0.5 gram to outer vagina once or twice daily. amb custom 0 Yes [facility] compound 3-[address] 00:00: cream: 6% [facility] 00 gabapentin l , 2% Lidocaine, 2 % baclofen in water washable based. Apply 0.5 gram to outer vagina once or twice daily. amb custom 2020-0 Yes [facility]ed N[facility] arethaodi compound 3- vaginal st 00:00: cream: 6% [facility]osp[facility] 00 gabapentin l , 2% Lidocaine, 2 % baclofen in water washable based. Apply 0.5 gram to outer vagina once or twice daily. amb custom 2020-0 Yes [facility] mahesh compound [address] 00:00: cream: 6% [facility]ospita 00 gabapentin l , 2% Lidocaine, 2 % baclofen in water washable based. Apply 0.5 gram to outer vagina once or twice daily. amb custom 2020-0 Yes [facility] mahesh compound 09-[address] 00:00: cream: 6% [facility]ospita 00 gabapentin l , 2% Lidocaine, 2 % baclofen in water washable based. Apply 0.5 gram to outer vagina once or twice daily. amb custom 2020-0 Yes [facility] arethaodi compound 09-[address] 00:00: cream: 6% [facility]ospita 00 gabapentin l , 2% Lidocaine, 2 % baclofen in water washable based. Apply 0.5 gram to outer vagina once or twice daily. amb custom 2020-0 Yes [facility]ed N[facility] mahesh compound 09-[address] 00:00: cream: 6% [facility]osp[facility] 00 gabapentin l , 2% Lidocaine, 2 % baclofen in water washable based. Apply 0.5 gram to outer vagina once or twice daily. amb custom 2020-0 Yes [facility]ed N[facility] arethaodi compound 09-[address] 00:00: cream: 6% [facility]ospita 00 gabapentin l , 2% Lidocaine, 2 % baclofen in water washable based. Apply 0.5 gram to outer vagina once or twice daily. amb custom 2020-0 Yes [facility] arethaodi compound [address] 00:00: cream: 6% [facility]ospita 00 gabapentin l , 2% Lidocaine, 2 % baclofen in water washable based. Apply 0.5 gram to outer vagina once or twice daily. amb custom 2020-0 Yes [facility] arethaodi compound [address] 00:00: cream: [...] once or twice daily. FREESTYLE 2020-0 Yes [id number] 1{each} 1 Each [facility] BRENDA 14 3-03 every 14 ity of DAY SENSOR 00:00: [place]teen[place] 00 days. [facility] FREESTYLE 2020-0 Yes [id number] 1{each} 1 Each [facility] BRENDA 14 3-03 daily. ity of DAY READER 00:00: [place] [address] Medical Branch FREESTYLE 2020-0 Yes [id number] 1{each} 1 Each [facility] BRENDA 14 3-03 every 14 ity of DAY SENSOR 00:00: ([place]teen) [place] Kit 00 days. [facility] FREESTYLE 2020-0 Yes [id number] 1{each} 1 Each [facility] BRENDA 14 3-03 daily. ity of DAY READER 00:00: [place] [address] Medical Branch FREESTYLE 2020-0 Yes [id number] 1{each} 1 Each [facility] BRENDA 14 3-03 every 14 ity of DAY SENSOR 00:00: (fourteen) [place] Kit 00 days. [facility] FREESTYLE 2020-0 Yes [id number] 1{each} 1 Each [facility] BRENDA 14 3-03 daily. ity of DAY READER 00:00: [place] Misc 00 Medical Branch FREESTYLE 2020-0 Yes [id number] 1{each} 1 Each [facility] BRENDA 14 3-03 every 14 ity of DAY SENSOR 00:00: (fourteen) [place] Kit 00 days. [facility] FREESTYLE 2020-0 Yes [id number] 1{each} 1 Each [facility] BRENDA 14 3-03 daily. ity of DAY READER 00:00: [facility] 00 Medical Branch FREESTYLE 2020-0 Yes [id number] 1{each} 1 Each Univers BRENDA 14 3-03 every 14 ity of DAY SENSOR 00:00: (fourteen) [place] Kit 00 days. Medical Branch FREESTYLE 2020-0 Yes [id number] 1{each} 1 Each [facility] BRENDA 14 3-03 daily. ity of DAY READER 00:00: [facility] 00 Medical Branch FREESTYLE 2020-0 Yes [id number] 1{each} 1 Each [facility] BRENDA 14 3-03 every 14 ity of DAY SENSOR 00:00: ([place]teen[place] Kit 00 days. Medical Branch FREESTYLE 2020-0 Yes [id number] 1{each} 1 Each [facility] BRENDA 14 3-03 daily. ity of DAY READER 00:00: [facility] 00 Medical Branch FREESTYLE 2020-0 Yes [id number] 1{each} 1 Each [facility] BRENDA 14 3-03 every 14 ity of DAY SENSOR 00:00: (fourteen[place] Kit 00 days. Medical Branch FREESTYLE 2020-0 Yes [id number] 1{each} 1 Each [facility] BRENDA 14 3-03 daily. ity of DAY READER 00:00: [place] [facility] [place] [facility] FREESTYLE 2020-0 Yes [id number] 1{each} 1 Each [facility] BRENDA 14 3-03 every 14 ity of DAY SENSOR 00:00: (fourteen[place] Kit 00 days. Medical Branch FREESTYLE 2020-0 Yes [id number] 1{each} 1 Each [facility] BRENDA 14 3-03 daily. ity of DAY READER 00:00: [place] [facility] [place] [facility] Medical Branch FREESTYLE 2020-0 Yes [id number] 1{each} 1 Each [facility] BRENDA 14 3-03 every 14 ity of DAY SENSOR 00:00: (fourteen) [place] Kit 00 days. Medical Branch FREESTYLE 2020-0 Yes [id number] 1{each} 1 Each [facility] BRENDA 14 3-03 daily. ity of DAY READER 00:00: [facility] 00 Medical Branch FREESTYLE 2020-0 Yes [id number] 1{each} 1 Each Univers BRENDA 14 3-03 every 14 ity of DAY SENSOR 00:00: (fourteen) [place] Kit 00 days. Medical Branch FREESTYLE 2020-0 Yes [id number] 1{each} 1 Each [facility] BRENDA 14 3-03 daily. ity of DAY READER 00:00: [facility] 00 Medical Branch Ozempic 2020-0 No (5)/125 [...] 0.5 mg (2 00:00: mg/1.5 mL) [facility] l[facility] 2020-0 No 1mg 5 mg tablet 2-19 00:00: 00 metformin 2020-0 No 1mg 1,000 mg 2-19 tablet 00:00: 00 atorvastati 2020-0 No 1mg n 40 mg 2-19 tablet 00:00: 00 Ozempic 2020-0 No (5)/125 0.25 mg or 2- -30(10) 0.5 mg (2 00:00[facility]5 [facility] No 1mg 5 mg tablet 2-19 00:00: 00 metformin 2020-0 No 1mg 1,000 mg 2-19 tablet 00:00: 00 atorvastati 2020-0 No 1mg n 40 mg 2-19 tablet 00:00: 00 Ozempic 2020-0 No (5)/125 0.25 mg or 2-19 -30(10) 0.5 mg (2 00:00: mg/1.5 mL[facility]-0 No 1mg [...] tablet 2-30 00:00: 00 traMADol 2018-07 Yes [id number] 50mg Take 1 Uni vers (ULTRAM) 50 2-28 tablet by ity of mg tablet 00:00: mouth [place] 00 every 6 Medical (six) Branch hours as needed for Pain (scale 7-10). ondansetron 2018-07 Yes [id number] 4mg Take 1 Univers (ZOFRAN) 4 2-28 tablet by ity of mg tablet 00:00: mouth [place] 00 every 8 Medical (eight) Branch hours as needed for Nausea and Vomiting (N/V). ondansetron 2018-07 Yes [id number] 4mg Take 1 Univers (ZOFRAN) 4 2-28 tablet by ity of mg tablet 00:00: mouth [place] 00 every 8 Medical (eight) Branch hours as needed for Nausea and Vomiting (N/V). ondansetron 2018-07 Yes [id number] 4mg Take 1 Univers (ZOFRAN) 4 2-28 tablet by ity of mg tablet 00:00: mouth [place] 00 every 8 Medical (eight) Branch hours as needed for Nausea and Vomiting (N/V). ondansetron 2018-07 Yes [id number] 4mg Take 1 Univers (ZOFRAN) 4 2-28 tablet by ity of mg tablet 00:00: mouth [place] 00 every 8 Medical (eight) Branch hours as needed for Nausea and Vomiting (N/V). ondansetron 2018-07 Yes [id number] 4mg Take 1 Univers (ZOFRAN) 4 2-28 tablet by ity of mg tablet 00:00: mouth [place] 00 every 8 Medical (eight) Branch hours as needed for Nausea and Vomiting (N/V). ondansetron 2018-07 Yes [id number] 4mg Take 1 Univers (ZOFRAN) 4 2-28 tablet by ity of mg tablet 00:00: mouth [place] 00 every 8 Medical (eight) Branch hours as needed for Nausea and Vomiting (N/V). ondansetron 2018-07 Yes [id number] 4mg Take 1 Univers (ZOFRAN) 4 2-28 tablet by ity of mg tablet 00:00: mouth [place] 00 every 8 Medical (eight) Branch hours as needed for Nausea and Vomiting (N/V). ondansetron 2018-07- No [id number] 4mg Take 1 Univers (ZOFRAN) 4 2-28 02-16 tablet by ity of mg tablet 00:00: 00:00 mouth [place] 00 :00 every 8 Medical (eight) Branch hours as needed for Nausea and Vomiting (N/V). traMADol 2018-07- No [id number] 50mg Take 1 Un fabiana (ULTRAM) 50 [...] 500 mg 0-03 tablet 00:00: 00 metronidazo 2018-1 No 1mg le 500 mg 0-03 tablet [...] mg capsule 00:00: 00 hydrOXYzine 2018-0 Yes [id number] 10mg Take 1 Univers 10 mg 9-13 tablet by ity of tablet 00:00: mouth [place] 00 every 6 Medical (six) Branch hours. hydrOXYzine 2018- Yes [id number] 10mg Take 1 Univers 10 mg 9-13 tablet by ity of tablet 00:00: mouth [place] 00 every 6 Medical (six) Branch hours. hydrOXYzine Yes [id number] 10mg Take 1 Univers 10 mg 9-13 tablet by ity of tablet 00:00: mouth [place] 00 every 6 Medical (six) Branch hours. hydrOXYzine Yes [id number] 10mg Take 1 Univers 10 mg 9-13 tablet by ity of tablet 00:00: mouth [place] 00 every 6 Medical (six) Branch hours. hydrOXYzine 2018- Yes [id number] 10mg Take 1 Univers 10 mg 9-13 tablet by ity of tablet 00:00: mouth [place] 00 every 6 Medical (six) Branch hours. hydrOXYzine Yes [id number] 10mg Take 1 Univers 10 mg 9-13 tablet by ity of tablet 00:00: mouth [place] 00 every 6 Medical (six) Branch hours. hydrOXYzine 2018-0 Yes [id number] 10mg Take 1 Univers 10 mg 9-13 tablet by ity of tablet 00:00: mouth [place] 00 every 6 Medical (six) Branch hours. hydrOXYzine 2018- 2023- No [id number] 10mg Take 1 Univers 10 mg 9-13 [...] 500 mg 2-04 capsule 00:00: 00 lisinopril 1 No 1mg 5 [...] Zofran 4 mg 1 No 1mg tablet 1-29 00:00: 00 metformin 2018-1 No 1mg 1,000 [...] Effexor XR 2018-0 No 1mg 75 mg 9-27 capsule,ext 00:00: ended 00 release Lexapro 20 [...] 00 amoxicillin 2018-0 No 1mg 875 mg - tablet 00:00: 00 Claritin 10 2018-0 No [...] Lexapro 20 2017-0 No 15mg mg tablet 816 00:00: 00 Abilify 5 2017-0 No 1mg mg tablet 16 00:00: 00 trazodone 2018-0 No 12mg 100 [...] 1mg mg tablet 07-18 00:00: 00 promethazin 2016- No 10mg/5 e-DM [...] mg-15 mg/5 00:00: mL syrup 00 loratadine 2016-1 No 1mg 10 mg [...] 1mg 15 mg - tablet 00:00: 00 buspirone 2017-0 No 1mg 15 mg 7- tablet 00:00: 00 trazodone 2017-0 No 2mg 100 mg - tablet 00:00: 00 trazodone 2017-0 [...] 2mg 100 mg 7- tablet 00:00: 00 metformin 2017-0 No 1mg [...] Abilify 5 2017-0 No 1mg mg tablet - 00:00: 00 Lexapro 20 2017-0 No 1mg [...] 1mg 150 mg 4- tablet 00:00: 00 Carvedilol 2016-0 2022- No [id number] 6.25mg Take 1 Anderea 6.25 MG 4-10 09-07 tablet by Seibisol d oral Tab 00:00: 00:00 mouth 2 - 00 :00 times Externa daily l (with meals) MethIMAzole 2016-0 2022- No [id number] 10mg Take 1 Andreea 10 MG oral -10 09-07 tablet by Sey bold Tab 00:00: 00:00 mouth - 00 [...] 150 mg 2-08 tablet 00:00: 00 hydroxyzine 2015- No 12mg HCl 25 mg 2-08 tablet [...] mg 3-19 tablet 00:00: 00 Effexor XR 2015-0 No 1mg [...] Effexor XR 2015-0 No mg 75 mg 14 capsule,ext 00:00: ended 00 release doxepin 10 [...] glimepiride 2015-0 No 1mg 4 mg tablet 04 00:00: 00 metformin 2015-0 No 1mg 1,000 mg 1-04 tablet 00:00: 00 simvastatin 2015-0 No 1mg 20 mg 1-04 tablet 00:00: [...] 5 mg tablet 01-15 00:00: 00 glimepiride 2014-0 No 1mg 4 mg tablet 01-15 00:00: [...] glimepiride 2015-0 No 1mg 4 mg tablet 3- 00:00: 00 fluconazole 2015-0 No 1mg 150 [...] lisinopril 2015-0 No 1mg 5 mg tablet 1-28 00:00: 00 metformin 2015-0 No 1mg 1,000 [...] 00 metformin 2014-0 No 1mg 1,000 mg 1-28 tablet 00:00: [...] [place] Strips ( Medical [facility] Univers Blood 2-14 ity of Glucose 00:00: [place] Strips ( Medical TOUCH Branch COMBO) [facility] Yes Univers Blood 2-14 ity of Glucose 00:00: [place] Strips ( Medical TOUCH Branch COMBO) [facility]- Yes Univers Blood 2-14 ity of Glucose 00:00: [place] Strips ( Medical TOUCH Branch COMBO) [facility]- Yes Univers Blood [...] 00 Medical MONITORING) Branch Kit Immunizations Ordered Immunization Filled Immunization Date Status Dedrick yip Source Name Name Leonarda COVID-19 2021-07-24 Completed Vaccine 00:00:00 Moderna COVID-19 [...] Vaccine 00:00:00 Covid-19 Vaccine 2021-07-24 Completed Andreea Mota eytom - Moderna (Spikevax), 00:00:00 Exter nal Mrna-lnp, Florentin Protein, Pf Covid-19 Vaccine 2021-07-24 Completed Andreea aceves - Moderna (Spikevax), 00:00:00 Exter nal Mrna-lnp, Florentin Protein, Pf Covid-19 Vaccine 2021-07-24 Completed Andreea aceves - Moderna (Spikevax), 00:00:00 Exter nal Mrna-lnp, Florentin Protein, Pf Covid-19 Vaccine 2021-07-24 Completed Andreea morseld - Moderna (Spikevax), 00:00:00 Exter nal Mrna-lnp, Florentin Protein, Pf Covid-19 Vaccine 2021-07-24 Completed Andreea aceves - Moderna (Spikevax), 00:00:00 Exter nal Mrna-lnp, Florentin Protein, Pf Pneumococcal 2020-05-21 Completed University o f Polysaccharide, 00:00:00 [facility] PPSV23 (PNEUMOVAX) Branch TDAP 2020-05-21 Completed University of 00:00:00 [facility] Pneumococcal 2020-05-21 Completed University o f Polysaccharide, 00:00:00 [place] Med ical PPSV23 (PNEUMOVAX) Branch TDAP 2020-05-21 Completed University of 00:00:00 [facility] Pneumococcal 2020-05-21 Completed University o f Polysaccharide, 00:00:00 [place] Med ical PPSV23 (PNEUMOVAX) Branch TDAP 2020-05-21 Completed University of 00:00:00 [facility] Pneumococcal 2020-05-21 Completed University o f Polysaccharide, 00:00:00 [place] Med ical PPSV23 (PNEUMOVAX) Branch TDAP 2020-05-21 Completed University of 00:00:00 [facility] Pneumococcal 2020-05-21 Completed University o f Polysaccharide, 00:00:00 [place] Med ical PPSV23 (PNEUMOVAX) Branch TDAP 2020-05-21 Completed University of 00:00:00 [facility] Pneumococcal 2020-05-21 Completed University o f Polysaccharide, 00:00:00 [place] Med ical PPSV23 (PNEUMOVAX) Branch TDAP 2020-05-21 Completed University of 00:00:00 [facility] Pneumococcal 2020-05-21 Completed University o f Polysaccharide, 00:00:00 [place] Med ical PPSV23 (PNEUMOVAX) Branch TDAP 2020-05-21 Completed University of 00:00:00 [facility] Pneumococcal 2020-05-21 Completed University o f Polysaccharide, 00:00:00 [place] Med ical PPSV23 (PNEUMOVAX) Branch TDAP 2020-05-21 Completed University of 00:00:00 [facility] Pneumococcal 2020-05-21 Completed University o f Polysaccharide, 00:00:00 [place] Med ical PPSV23 (PNEUMOVAX) Branch TDAP 2020-05-21 Completed University of 00:00:00 [facility] Pneumococcal 2020-05-21 Completed University o f Polysaccharide, 00:00:00 [place] Med ical PPSV23 (PNEUMOVAX) Branch TDAP 2020-05-21 Completed University of 00:00:00 [facility] Pneumococcal Vaccine, 2020-05-21 Completed Spencer Traoreold - Polysaccharide 00:00:00 External Tdap- (Boostrix, 2020-05-21 Completed Andreea aceves - Adacel) 00:00:00 External Pneumococcal Vaccine, 2020-05-21 Completed Spencer zamora Seybold - Polysaccharide 00:00:00 External Tdap- (Boostrix, 2020-05-21 Completed Andreea casillasbold - Adacel) 00:00:00 External MMR 2013-07-25 Completed University of 00:00:00 [facility] MMR 2013-07-25 Completed University of 00:00:00 [facility] MMR 2013-07-25 Completed University of 00:00:00 [facility] MMR 2013-07-25 Completed University of 00:00:00 [facility] MMR 2013-07-25 Completed University of 00:00:00 [facility] MMR 2013-07-25 Completed University of 00:00:00 [facility] MMR 2013-07-25 Completed University of 00:00:00 [facility] MMR 2013-07-25 Completed University of 00:00:00 [facility] MMR 2013-07-25 Completed University of 00:00:00 [facility] MMR 2013-07-25 Completed University of 00:00:00 [facility] MMR- Measles, Mumps, 2013-07-25 Completed Milrded ey Seybold - Rubella 00:00:00 External MMR- Measles, Mumps, 2013-07-25 Completed Mildred ey Seybold - Rubella 00:00:00 External TDAP 2013-05-21 Completed University of 00:00:00 [facility] TDAP 2013-05-21 Completed University of 00:00:00 [facility] TDAP 2013-05-21 Completed University of 00:00:00 [facility] TDAP 2013-05-21 Completed University of 00:00:00 [facility] Branch TDAP 2013-05-21 Completed University of 00:00:00 [facility] Branch TDAP 2013-05-21 Completed University of 00:00:00 [facility] Branch TDAP 2013-05-21 Completed University of 00:00:00 [facility] Branch TDAP 2013-05-21 Completed University of 00:00:00 [facility] Branch TDAP 2013-05-21 Completed University of 00:00:00 [facility] Branch TDAP 2013-05-21 Completed University of 00:00:00 [facility] Branch Tdap- (Boostrix, 2013-05-21 Completed Andreea aceves - Elzbietacel) 00:00:00 External Tdap- (Boostrix, 2013-05-21 Completed Andreea aceves - Adacel) 00:00:00 External Influenza Virus 2013-03-19 Completed Universit y of Vaccine 00:00:00 [facility] Influenza Virus 2013-03-19 Completed Universit y of Vaccine 00:00:00 [facility] Influenza Virus 2013-03-19 Completed Universit y of Vaccine 00:00:00 [facility] Influenza Virus 2013-03-19 Completed Universit y of Vaccine 00:00:00 [facility] Influenza Virus 2013-03-19 Completed Universit y of Vaccine 00:00:00 [facility] Influenza Virus 2013-03-19 Completed Universit y of Vaccine 00:00:00 [facility] Influenza Virus 2013-03-19 Completed Universit y of Vaccine 00:00:00 [facility] Influenza Virus 2013-03-19 Completed Universit y of Vaccine 00:00:00 [facility] Influenza Virus 2013-03-19 Completed Universit y of Vaccine 00:00:00 [facility] Influenza Virus 2013-03-19 Completed Universit y of Vaccine 00:00:00 [facility] Influenza Virus 2013-03-19 Completed Andreea fermin - Vaccine, Unspecified 00:00:00 Exte rnal Formulation Influenza Virus 2013-03-19 Completed Andreea fermin - Vaccine, Unspecified 00:00:00 Exte rnal Formulation Rubella 2008-04-17 Completed University of 00:00:00 [facility] Rubella 2008-04-17 Completed University of 00:00:00 [facility] Rubella 2008-04-17 Completed University of 00:00:00 [facility] Rubella 2008-04-17 Completed University of 00:00:00 [facility] Rubella 2008-04-17 Completed University of 00:00:00 [facility] Rubella 2008-04-17 Completed University of 00:00:00 [facility] Rubella 2008-04-17 Completed University of 00:00:00 [facility] Rubella 2008-04-17 Completed University of 00:00:00 [facility] Rubella 2008-04-17 Completed University of 00:00:00 [facility] Rubella 2008-04-17 Completed University of 00:00:00 [facility] Rubella 2008-04-17 Completed Andreea Corona - 00:00:00 External Rubella 2008-04-17 Completed Andreea Corona - 00:00:00 External TD, NOS 2004-07-11 Completed University of 00:00:00 [facility] Td 2004-07-11 Completed University of 00:00:00 [facility] Td 2004-07-11 Completed University of 00:00:00 [facility] Td 2004-07-11 Completed University of 00:00:00 [facility] Td 2004-07-11 Completed University of 00:00:00 [facility] Td 2004-07-11 Completed University of 00:00:00 [facility] Branch Td 2004-07-11 Completed University of 00:00:00 [facility] Branch Td 2004-07-11 Completed University of 00:00:00 [facility] Branch TD, NOS 2004-07-11 Completed University of 00:00:00 [facility] TD, NOS 2004-07-11 Completed University of 00:00:00 [facility] Tdap- (Boostrix, 2004-07-11 Completed Andreea Mota eybold - Adacel) 00:00:00 External Tdap- (Boostrix, 2004-07-11 Completed Andreea Mota eybold - Adacel) 00:00:00 External Vital Signs Vital Name Observation Time Observation Value Comments Source Systolic blood 2022-12-21 19:08:00 115 mm[Hg] Andreea Seybold - pressure External Diastolic blood 2022-12-21 19:08:00 77 mm[Hg] Vikram gray Seybold - pressure External Heart rate 2022-12-21 19:08:00 96 /min Andreea aceves - External Body temperature 2022-12-21 19:08:00 36.72 Lorenza Mildred casillas Seybold - External Respiratory rate 2022-12-21 19:08:00 18 /min Mildred casillas Seybold - External Body height 2022-12-21 19:08:00 162.6 cm Andreea aceves - External Body weight 2022-12-21 19:08:00 104.327 kg Andreea casillasborafael - External BMI 2022-12-21 19:08:00 39.48 kg/m2 Andreea casillasborafael - External Systolic blood 2022-12-17 19:52:00 120 mm[Hg] Andreea Godfreyybold - pressure External Diastolic blood 2022-12-17 19:52:00 81 mm[Hg] Kelse y Seybold - pressure External Heart rate 2022-12-17 19:52:00 119 /min Andreea Mota eybold - External Body temperature 2022-12-17 19:52:00 36.89 Lorenza Mildred ey Seybold - External Respiratory rate 2022-12-17 19:52:00 15 /min Mildred ey Seybold - External Body height 2022-12-17 19:52:00 162.6 cm Andreea casillasbold - External Body weight 2022-12-17 19:52:00 105.688 kg Andreea casillasbold - External BMI 2022-12-17 19:52:00 39.99 kg/m2 Andreea casillasbold - External Oxygen saturation in 2022-12-17 19:52:00 99 /min Andreea Corona - Arterial blood by External Pulse oximetry Systolic blood 2022-11-03 15:00:00 103 mm[Hg] [facility] Diastolic blood 2022-11-03 15:00:00 72 mm[Hg] [facility] Heart rate 2022-11-03 15:00:00 76 /min [facility] Oxygen saturation in 2022-11-03 15:00:00 96 /min [facility] Arterial blood by [facility] Pulse oximetry Branch Respiratory rate 2022-11-03 14:58:00 14 /min [facility] 2022-11-03 13:25:00 37.22 Lorenza [facility] 2022-11-03 13:25:00 99.791 kg [facility] BMI 2022-11-03 13:25:00 37.76 kg/m2 [facility] Systolic blood 2022-10-01 20:47:00 110 mm[Hg] Andreea Godfreyybold - pressure External Diastolic blood 2022-10-01 20:47:00 75 mm[Hg] Spencerse gray Seybraegan - pressure External Heart rate 2022-10-01 20:47:00 104 /min Andreea casillasbold - External Body temperature 2022-10-01 20:47:00 37.11 Lorenza Mildred ey Seybold - External Respiratory rate 2022-10-01 20:47:00 14 /min Mildred casillas Seybold - External Body height 2022-10-01 20:47:00 162.6 cm Andreea Mota eybold - External Body weight 2022-10-01 20:47:00 105.235 kg Andreea Mota eybold - External BMI 2022-10-01 20:47:00 39.82 kg/m2 Andreea Mota eybold - External Oxygen saturation in 2022-10-01 20:47:00 99 /min Andreea Seybold - Arterial blood by External Pulse oximetry Systolic blood 2022-09-10 16:20:00 105 mm[Hg] Andreea Seybold - pressure External Diastolic blood 2022-09-10 16:20:00 73 mm[Hg] Spencerse y Seybold - pressure External Heart rate 2022-09-10 16:20:00 102 /min Andreea Mota eybold - External Body temperature 2022-09-10 16:20:00 36.44 Lorenza Mildred casillas Seybold - External Respiratory rate 2022-09-10 16:20:00 18 /min Mildred casillas Seybold - External Body height 2022-09-10 16:20:00 162.6 cm Andreea Mota eybold - External Body weight 2022-09-10 16:20:00 109.317 kg Andreea Mota eybold - External BMI 2022-09-10 16:20:00 41.37 kg/m2 Andreea Mota eybold - External Systolic blood 2022-09-07 20:49:00 103 mm[Hg] Andreea Seybold - pressure External Diastolic blood 2022-09-07 20:49:00 68 mm[Hg] Vikram y Seybold - pressure External Heart rate 2022-09-07 20:49:00 119 /min Andreea S eybold - External Body temperature 2022-09-07 20:49:00 37.17 Lorenza Mildred ey Seybold - External Respiratory rate 2022-09-07 20:49:00 14 /min Mildred casillas Seybold - External Body height 2022-09-07 20:49:00 162.6 cm Andreea Mota eybold - External Body weight 2022-09-07 20:49:00 109.317 kg Andreea S eybold - External BMI 2022-09-07 20:49:00 41.37 kg/m2 Andreea S eybold - External Oxygen saturation in 2022-09-07 20:49:00 96 /min Andreea Corona - Arterial blood by External Pulse oximetry Systolic blood 2022-08-30 14:00:00 112 mm[Hg] Univer sity of pressure [facility] Diastolic blood 2022-08-30 14:00:00 75 mm[Hg] Unive rsity of pressure [facility] Oxygen saturation in 2022-08-30 14:00:00 97 /min [facility] Arter[facility] blood by [place] [facility] Pulse oximetry Branch Heart rate 2022-08-30 13:00:00 93 /min [facility] Body temperature 2022-08-30 13:00:00 35.83 Lorenza [facility] Respiratory rate 2022-08-30 13:00:00 15 /min [facility] Body weight 2022-08-29 12:00:00 112.492 kg [facility] BMI 2022-08-29 12:00:00 42.57 kg/m2 [facility] Body height 2022-08-27 00:21:00 162.6 cm [facility] Systolic blood 2022-06-22 04:59:00 110 mm[Hg] Univer sity of pressure [facility] Diastolic blood 2022-06-22 04:59:00 70 mm[Hg] Unive rsity of pressure [facility] Heart rate 2022-06-22 04:59:00 107 /min [facility] Respiratory rate 2022-06-22 04:59:00 22 /min [facility] Oxygen saturation in 2022-06-22 04:59:00 97 /min [facility] blood by [place] [facility] Pulse oximetry Branch Body temperature 2022-06-21 23:26:00 37.28 Lorenza [facility] Body height 2022-06-21 23:26:00 162.6 cm [facility] Body weight 2022-06-21 23:26:00 98.431 kg [facility] BMI 2022-06-21 23:26:00 37.25 kg/m2 [facility] Systolic blood 2021-10-17 02:05:00 117 [...] /min [facility] Arterial blood by [place] [facility] Pulse oximetry Branch Body temperature 2021-10-16 22:30:00 37.33 Lorenza [facility] Body weight 2021-10-16 21:38:00 103.42 kg [facility] BMI 2021-10-16 21:38:00 37.94 kg/m2 [facility] Systolic blood 2021-09-22 17:00:00 108 mm[Hg] Univer sity of pressure [facility] Diastolic blood 2021-09-22 17:00:00 77 mm[Hg] Unive rsity of [facility] Heart rate 2021-09-22 17:00:00 90 /min [facility] Oxygen saturation in 2021-09-22 17:00:00 97 /min [facility] Arterial blood by [place] [facility] Pulse oximetry Branch Respiratory rate 2021-09-22 15:00:00 18 /min [facility] Body temperature 2021-09-22 14:52:00 37.11 Lorenza [facility] Body weight 2021-09-22 14:52:00 103.42 [...] 12:00:00 13 /min [facility] Oxygen saturation in 2021-06-18 12:00:00 95 /min University of Arterial blood by [facility] Pulse oximetry Branch Body height 2021-06-18 10:37:00 165.1 cm [facility] [place] [facility] [place] Body weight 2021-06-18 10:37:00 107.502 kg [facility] [place] [facility] [place] BMI 2021-06-18 10:37:00 39.44 kg/m2 [facility] Systolic blood 2021-05-31 01:34:00 139 mm[Hg] Univer sity of pressure [facility] Diastolic blood 2021-05-31 01:34:00 90 mm[Hg] Unive rsity of pressure [facility] Heart rate 2021-05-31 01:34:00 112 /min [facility] Respiratory rate 2021-05-31 01:34:00 20 /min Univ ersity of [facility] Oxygen saturation in 2021-05-31 01:34:00 98 /min [facility] of Arterial blood by [facility] Pulse oximetry Branch Body weight 2021-05-30 21:47:00 107.502 kg [facility] [place] [facility] [place] BMI 2021-05-30 21:47:00 40.68 kg/m2 Universi ty [facility] BP Systolic 2022-06-18 10:43:00 118 mm[Hg] BP [...] Date / Time Performing Clinician Source Performed REAGENT STRIP/BLOOD 2022-12-21 00:00:00 Outside, Reported Andreea Corona - GLUCOSE External LIPASE 2022-11-03 13:37[facility]-03 13:37[facility] [address] [facility] ([id number] (ALB,T.PRO,BILI Medical Branch T,BU/BC,ALT,AST,ALK PHOS) BASIC METABOLIC PANEL 2022-11-03 13:37:00 [facility] (NA, K, CL, CO2, Medical Branch GLUCOSE, BUN, CREATININE, CA) LIPID PANEL 2022-11-03 13:37:00 [id number]TOTAL Medical Branch CHOLESTEROL, TRIGLYCERIDES, HDL) CBC WITH DIFF 2022-11-03 13:37:00 [facility] URINALYSIS 2022-11-03 13:37:00 Katelyn Buckner [place] o f [facility] CONSENT/REFUSAL FOR 2022-11-03 13:22:43 Doctor Unassigned, No Un [facility] DIAGNOSIS AND TREATMENT Name [facility] REAGENT STRIP/BLOOD 2022-09-10 00:00:00 Outside, Reported Andreea Corona - GLUCOSE External POCT GLUCOSE (AUTOMATED) 2022-08-30 14:52:00 Meri Wray Uni versity [facility] POCT GLUCOSE (AUTOMATED) 2022-08-30 13:01:00 OvMeri moran Uni versity of [facility] POCT GLUCOSE (AUTOMATED) 2022-08-30 12:03:00 Meri Wray Uni versity [facility] POCT GLUCOSE (AUTOMATED) 2022-08-30 11:04:00 Meri Wray [facility] TRIGLYCERIDES 2022-08-30 10:18:[address] [facility] BASIC METABOLIC PANEL 2022-08-30 10:18:00 Meri Wray [facility] (NA, K, CL, CO2, Medical Branch GLUCOSE, BUN, CREATININE, CA) POCT GLUCOSE (AUTOMATED) 2022-08-30 10:11:00 Meri Wray [facility] POCT GLUCOSE (AUTOMATED) 2022-08-30 09:10:00 Meri Wray [facility] POCT GLUCOSE (AUTOMATED) 2022-08-30 08:08:00 Meri Wray Uni versity [facility] POCT GLUCOSE (AUTOMATED) 2022-08-30 07:15:00 Meri Wray Uni versity [facility] POCT GLUCOSE (AUTOMATED) 2022-08-30 06:28:00 Meri Wray Uni versity of [facility] POCT GLUCOSE (AUTOMATED) 2022-08-30 05:04:00 Meri Wray Uni versity of [facility] POCT GLUCOSE (AUTOMATED) 2022-08-30 04:11:00 Meri Wray Uni versity of [facility] POCT GLUCOSE (AUTOMATED) 2022-08-30 03:03:00 Oville, Meri Uni versity of [facility] POCT GLUCOSE (AUTOMATED) 2022-08-30 02:21:00 Oville, Meri [facility] POCT GLUCOSE (AUTOMATED) 2022-08-30 01:02:00 Oville, Meri [facility] POCT GLUCOSE (AUTOMATED) 2022-08-30 00:03:00 Oville, Meri Uni versity of [facility] POCT GLUCOSE (AUTOMATED) 2022-08-29 23:00:00 Oville, Meri Uni vers[facility] of [facility] POCT GLUCOSE (AUTOMATED) 2022-08-29 22:04:00 Oville, Meri Uni vers[facility] of [facility] POCT GLUCOSE (AUTOMATED) 2022-08-29 21:11:00 Oville, Meri Uni versity of [facility] POTASSIUM SERUM 2022-08-29 20:33:00 Ovdean [facility] TRIGLYCERIDES 2022-08-29 20:33:[address] [facility] POCT GLUCOSE (AUTOMATED) 2022-08-29 20:07:00 Oville, Meri Uni vers[facility] of [facility] POCT GLUCOSE (AUTOMATED) 2022-08-29 19:09:00 Oville, Meri Uni versity of [facility] POCT GLUCOSE (AUTOMATED) 2022-08-29 18:12:00 Oville, Meri Uni versity of [facility] POCT GLUCOSE (AUTOMATED) 2022-08-29 17:08:00 OvilleTawandaMeri Uni versity of [facility] POCT GLUCOSE (AUTOMATED) 2022-08-29 16:14:00 Oville, Meri Uni vers[facility] of [facility] POCT GLUCOSE (AUTOMATED) 2022-08-29 15:05:00 Oville, Meri Uni vers[facility] of [facility] POCT GLUCOSE (AUTOMATED) 2022-08-29 14:08:00 Oville, Meri Uni vers[facility] of [facility] POCT GLUCOSE (AUTOMATED) 2022-08-29 13:18:00 Oville, Meri Uni vers[facility] of [facility] POCT GLUCOSE (AUTOMATED) 2022-08-29 12:06:00 Oville, Meri [facility] [place] [facility] POCT GLUCOSE (AUTOMATED) 2022-08-29 10:56:00 Meri Wray Uni versity of [facility] TRIGLYCERIDES 2022-08-29 10:53:00 Meri Wray [facility] MAGNESIUM 2022-08-29 10:53:00 Pedro [facility] BASIC METABOLIC PANEL 2022-08-29 10:53:00 Meri Wray [facility] (NA, K, CL, CO2, Medical Branch GLUCOSE, BUN, CREATININE, CA) POCT GLUCOSE (AUTOMATED) 2022-08-29 09:59:00 Meri Wray Uni versity of [facility] POCT GLUCOSE (AUTOMATED) 2022-08-29 09:07:00 Meri Wray Uni versity of [facility] POCT GLUCOSE (AUTOMATED) 2022-08-29 07:55:00 Meri Wray Uni versity of [facility] POCT GLUCOSE (AUTOMATED) 2022-08-29 07:06:00 Meri Wray Uni versity of [facility] POCT GLUCOSE (AUTOMATED) 2022-08-29 06:02:00 Meri Wray Uni vers[facility] of [facility] POCT GLUCOSE (AUTOMATED) 2022-08-29 05:09:00 OvParesh morani Uni versity of [facility] POCT GLUCOSE (AUTOMATED) 2022-08-29 04:09:00 Meri Wray [facility] vers[facility] of [facility] POCT GLUCOSE (AUTOMATED) 2022-08-29 03:17:00 Meri Wray [facility] vers[facility] POCT GLUCOSE (AUTOMATED) 2022-08-29 02:11:00 OvTawanda moranlani Uni versity of [facility] POCT GLUCOSE (AUTOMATED) 2022-08-29 01:00:00 Paresh Wrayi Uni versity of [facility] POCT GLUCOSE (AUTOMATED) 2022-08-29 00:13:00 OvTawanda moranlani Uni versity of [facility] POCT GLUCOSE (AUTOMATED) 2022-08-28 23:13:00 OvParesh morani Uni versity of [facility] POCT GLUCOSE (AUTOMATED) 2022-08-28 22:15:00 OvMeri moran Uni versity of [facility] POCT GLUCOSE (AUTOMATED) 2022-08-28 21:04:00 OvMeri moran Uni versity of [facility] POCT GLUCOSE (AUTOMATED) 2022-08-28 20:03:00 OvMeri moran Uni versity of [facility] POCT GLUCOSE (AUTOMATED) 2022-08-28 19:06:00 OvMeri moran Uni versity of [facility] TRIGLYCERIDES 2022-08-28 18:22:[address] [facility] BASIC METABOLIC PANEL 2022-08-28 18:22:00 Kamala [facility] (NA, K, CL, CO2, Medical Branch GLUCOSE, BUN, CREATININE, CA) POCT GLUCOSE (AUTOMATED) 2022-08-28 18:13:00 Meri Wray Uni versity of [facility] POCT GLUCOSE (AUTOMATED) 2022-08-28 17:03:00 OvMeri moran Uni versity of [facility] POCT GLUCOSE (AUTOMATED) 2022-08-28 16:02:00 OvMeri moran Uni versity of [facility] POCT GLUCOSE (AUTOMATED) 2022-08-28 15:02:00 OvParesh morani Uni versity of [facility] POCT GLUCOSE (AUTOMATED) 2022-08-28 14:03:00 Ovdean Meri Uni versity of [facility] POCT GLUCOSE (AUTOMATED) 2022-08-28 13:04:00 OvMeri moran Uni versity of [facility] POCT GLUCOSE (AUTOMATED) 2022-08-28 12:30:00 OvParesh morani Uni versity of [facility] POCT GLUCOSE (AUTOMATED) 2022-08-28 11:32:00 OvParesh morani Uni versity of [facility] POCT GLUCOSE (AUTOMATED) 2022-08-28 10:06:00 OvParesh morani Uni versity of [facility] TRIGLYCERIDES 2022-08-28 10:00:00 Kamala [facility] BASIC METABOLIC PANEL 2022-08-28 10:00:00 Kamala [facility] (NA, K, CL, CO2, Medical Branch GLUCOSE, BUN, CREATININE, CA) POCT GLUCOSE (AUTOMATED) 2022-08-28 08:59:00 Meri Wray Uni versity of [facility] POCT GLUCOSE (AUTOMATED) 2022-08-28 08:05:00 Meri Wray Uni versity of [facility] POCT GLUCOSE (AUTOMATED) 2022-08-28 05:58:00 Meri Wray Uni versity of [facility] POCT GLUCOSE (AUTOMATED) 2022-08-28 05:03:00 Meri Wray Uni versity of [facility] POCT GLUCOSE (AUTOMATED) 2022-08-28 04:01:00 Meri Wray Uni versity of [facility] POCT GLUCOSE (AUTOMATED) 2022-08-28 03:04:00 Meri Wray Uni versity of [facility] POCT GLUCOSE (AUTOMATED) 2022-08-28 02:02:00 Meri Wray Uni versity of [facility] POCT GLUCOSE (AUTOMATED) 2022-08-28 01:01:00 Meri Wray Uni versity of [facility] POCT GLUCOSE (AUTOMATED) 2022-08-28 00:02:00 Meri Wray Uni versity of [facility] POCT GLUCOSE (AUTOMATED) 2022-08-27 23:34:00 Meri Wray Uni versity of [facility] POCT GLUCOSE (AUTOMATED) 2022-08-27 22:07:00 Meri Wray Uni versity [facility] BASIC METABOLIC PANEL 2022-08-27 21:28:00 [facility] (NA, K, CL, CO2, Medical Branch GLUCOSE, BUN, CREATININE, CA) POCT GLUCOSE (AUTOMATED) 2022-08-27 21:01:00 Meri Wray Uni versity of [facility] POCT GLUCOSE (AUTOMATED) 2022-08-27 20:17:00 Meri Wray Uni versity of [facility] POCT GLUCOSE (AUTOMATED) 2022-08-27 19:00:00 Meri Wray Uni versity of [facility] POCT GLUCOSE (AUTOMATED) 2022-08-27 18:02:00 Meri Wray Uni versity [facility] TRIGLYCERIDES 2022-08-27 17:17:[address] [facility] BASIC METABOLIC PANEL 2022-08-27 17:17:00 [facility] ([facility], K, CL, CO2, Medical Branch GLUCOSE, BUN, CREATININE, CA) POCT GLUCOSE (AUTOMATED) 2022-08-27 16:59:00 OvMeri moran Uni versity [facility] POCT GLUCOSE (AUTOMATED) 2022-08-27 16:12:00 OvMeri moran Uni versity of [facility] POCT GLUCOSE (AUTOMATED) 2022-08-27 15:13:00 OvMeri moran Uni versity [facility] POCT GLUCOSE (AUTOMATED) 2022-08-27 14:19:00 Meri Wray Uni versity [facility] POCT GLUCOSE (AUTOMATED) 2022-08-27 13:23:00 OvMeri moran Uni versity [facility] POCT GLUCOSE (AUTOMATED) 2022-08-27 12:05:00 OvMeri moran Uni versity [facility] POCT GLUCOSE (AUTOMATED) 2022-08-27 11:06:00 OvMeri moran Uni versity [facility] POCT GLUCOSE (AUTOMATED) 2022-08-27 10:14:00 Meri Wray Uni versity [facility] POCT GLUCOSE (AUTOMATED) 2022-08-27 09:04:00 Meri Wray Uni versity [facility] TRIGLYCERIDES 2022-08-27 08:14:00 Meri Wray [facility] BASIC METABOLIC PANEL 2022-08-27 08:14:00 Mrei Wray [facility] (NA, K, CL, CO2, Medical Branch GLUCOSE, BUN, CREATININE, CA) POCT GLUCOSE (AUTOMATED) 2022-08-27 06:58:00 OvMeri moran Uni versity [facility] POCT GLUCOSE (AUTOMATED) 2022-08-27 06:11:00 OvMeri moran Uni versity [facility] POCT GLUCOSE (AUTOMATED) 2022-08-27 05:11:00 Oville, Meri [facility] POCT GLUCOSE (AUTOMATED) 2022-08-27 03:13:00 Meri Wray [facility] LIPASE 2022-08-27 02:32:00 Allen [place] o f [facility] BASIC METABOLIC PANEL 2022-08-27 02:32:00 [facility] ([facility], K, CL, CO2, Medical Branch GLUCOSE, BUN, CREATININE, CA) MRSA / MSSA SCREEN BY 2022-08-27 02:32:00 [facility] POCT GLUCOSE (AUTOMATED) 2022-08-27 02:00:00 Meri Wray [facility] POCT GLUCOSE (AUTOMATED) 2022-08-27 01:14[facility]00 [facility] 2022-08-27 00:14:00 Meri Wray [facility] POCT GLUCOSE (AUTOMATED) 2022-08-26 23:51:00 Meri Wray [facility] POCT GLUCOSE (AUTOMATED) 2022-08-26 23:06:00 Meri Wray [facility] KETONES URINE 2022-08-26 22:57:00 Robert Lutz [facility] URINALYSIS 2022-08-26 22:57:00 Robert Lutz [facility] POCT GLUCOSE (AUTOMATED) 2022-08-26 22:08:00 Robert Lutz [facility] ABG+COOX+NA+K+GLU+CA2+ 2022-08-26 21:16:00 Robert Lutz [facility] MAGNESIUM 2022-08-26 21:11:00 Robert Lutz [facility] OSMOLALITY, SERUM OR 2022-08-26 21:11:00 Robert Lutz [facility] PLASMA [facility] COMP. METABOLIC PANEL 2022-08-26 21:11:[address] [facility] ([id number]) [facility] LIPID PANEL 2022-08-26 21:11:00 Robert Lutz [facility] ([id number])(TOTAL [facility] CHOLESTEROL, TRIGLYCERIDES, HDL) CBC WITH DIFF 2022-08-26 21:11:00 Robert Lutz [facility] LOW-DENSITY LIPOPROTEIN, 2022-08-26 21:11:00 Robert Lutz Un [facility] HB ECG ROUTINE & RHYTHM 2022-08-26 20:34:00 Guido Rucker [facility] STRIP [facility] POCT GLUCOSE (AUTOMATED) 2022-08-26 20:33:00 Doctor Unassigned, No [facility] Name [facility] CONSENT/REFUSAL FOR 2022-08-26 20:18:28 Doctor Unassigned, No Un [facility] DIAGNOSIS AND TREATMENT Name [facility] POCT GLUCOSE (AUTOMATED) 2022-06-22 03:40:00 Katelyn Buckner [facility] BASIC METABOLIC PANEL 2022-06-22 02:40:00 Katelyn Buckner [facility] (NA, K, CL, CO2, Medical Branch GLUCOSE, BUN, CREATININE, CA) POCT GLUCOSE(AGE 2022-06-22 02:39:00 Katelyn Buckner [facility] >30DAYS) [facility] POCT GLUCOSE (AUTOMATED) 2022-06-22 02:38:00 Katelyn Buckner [facility] VBG+VCOOX+NA+K+GLU+CA2+ 2022-06-22 02:08:00 Katelyn Bcukner [facility] POCT GLUCOSE (AUTOMATED) 2022-06-22 01:41:00 Katelyn Buckner [facility] XR CHEST 2 VW 2022-06-22 00:47:37 Katelyn Buckner [facility] PHOSPHORUS 2022-06-21 23:49:00 Katelyn Buckner [facility] MAGNESIUM 2022-06-21 23:49:00 Katelyn Buckner [facility] TROPONIN I 2022-06-21 23:49:00 [facility] BASIC METABOLIC PANEL 2022-06-21 23:49:00 Katelyn Buckner [facility] (NA, K, CL, CO2, Medical Branch GLUCOSE, BUN, CREATININE, CA) CBC WITH DIFF 2022-06-21 23:49:00 Katelyn Buckner [facility] GLYCOSYLATED HEMOGLOBIN 2022-06-21 23:49:00 Katelyn Buckner [facility] (A1C) Medical Branch URINALYSIS 2022-06-21 23:49:00 Katelyn Buckner [facility] RAPID STREP SCREEN FOR 2022-06-21 23:49:[address] [facility] GROUP A [facility] RAPID INFLUENZA A/B 2022-06-21 23:49:00 Katelyn [facility] N-TERMINAL PRO-BNP 2022-06-21 23:49:00 Katelyn Buckner [facility] COVID-19 (ID NOW RAPID 2022-06-21 23:49:[address] [facility] TESTING) Medical Branch CONSENT/REFUSAL FOR 2022-06-21 23:19:40 Doctor Unassigned, No Un [facility] DIAGNOSIS AND TREATMENT Name [facility] POCT GLUCOSE (AUTOMATED) 2021-10-17 01:49:00 [facility] 2021-10-17 00:41:00 Beatriz Eduardo [facility] >30DAYS) [facility] POCT GLUCOSE (AUTOMATED) 2021-10-17 00:40:00 [facility]EN 2021-10-16 23:26:00 Beatriz Eduardo [facility] BLOOD CULTURE SCREEN 2021-10-16 23:03:00 Beatriz Eduardo [facility] TROPONIN I 2021-10-16 23:03:00 Beatriz Eduardo [facility] COMP. METABOLIC PANEL 2021-10-16 23:03:[address] [facility] ([id number]) Medical Branch CBC WITH DIFF 2021-10-16 23:03:00 Beatriz Eduardo [facility] URINALYSIS 2021-10-16 23:03:00 Beatriz Eduardo [facility] N-TERMINAL PRO-BNP 2021-10-16 23:03:00 Beatriz [facility] LACTIC ACID WHOLE BLOOD 2021-10-16 23:01:00 Beatriz Eduardo [facility] CT ABDOMEN PELVIS WO 2021-10-16 22:40:13 Beatriz Eduardo [facility] POCT TEST 2021-10-16 22:34:00 Beatriz Eduardo [facility] CONSENT/REFUSAL FOR 2021-10-16 21:34:04 Doctor Unassigned, No [facility] Name [facility] CT ABDOMEN PELVIS WO 2021-09-22 15:59:44 [facility] POCT TEST 2021-09-22 15:18:00 [facility] COMP. METABOLIC PANEL 2021-09-22 15:16[facility]00 [id number] CBC WITH DIFF 2021-09-22 15:16:00 Miller, [facility] URINALYSIS 2021-09-22 14:58:00 [facility] CONSENT/REFUSAL FOR 2021-09-22 14:47:03 Doctor Unassigned, No [facility] Name [facility] POCT GLUCOSE (AUTOMATED) 2021-06-18 13:04:00 [facility]EL[facility] 2021-06-18 12:58:31 Fozia Jang [facility] POCT TEST 2021-06-18 11:06:00 Fozia Jang [facility] CREATINE KINASE 2021-06-18 10:50:00 Xavier [facility] COMP. METABOLIC PANEL 2021-06-18 10:50:[address] [facility] ([id number]) Medical Branch CBC WITH DIFF 2021-06-18 10:50:00 Fozia Jang [facility] URINALYSIS 2021-06-18 10:50:00 Fozia Jang [facility] RAPID INFLUENZA A/B 2021-06-18 10:50:00 Fozia Jang [facility] COVID-19 (ID NOW RAPID 2021-06-18 10:50:00 Fozia Jang [facility] TESTING) Medical Branch NOTICE OF PRIVACY 2021-06-18 10:24:00 Doctor Unassigned, No [facility] PRACTICES Name [facility] CONSENT/REFUSAL FOR 2021-06-18 10:21:45 Doctor Unassigned, No [facility] [place] [facility]REAT[facility] Name [facility] CT ABDOMEN PELVIS W 2021-05-30 23:52:43 Mary Jay [facility] CONTRAST [facility] CT HEAD WO CONTRAST 2021-05-30 23:52:13 [facility] XR CHEST 1 VW 2021-05-30 22:38:06 Mary Jay [place] o f [facility] XR HAND 3+ VW LEFT 2021-05-30 22:38:06 Mary Jay [facility] XR FOREARM 2 VW LEFT 2021-05-30 22:28:08 Mary Jay [facility] CONSENT/REFUSAL FOR 2021-05-30 21:39:04 Doctor Unassigned, No [facility] [facility] [facility] [place] DIAGNOSIS AND TREATMENT Name [facility] [address] Ecg Routine Ecg 2015-12-20 00:00:00 W/least 12 Lds W/i r 83.71 2010-08-05 00:00:00 OAT[facility] 77.98 2010-08-05 00:00:00 [facility] Plan of Care Planned Activity Planned Date Details Comments Source Future Scheduled 2022-12-21 COVID-19 VACCINE [facility] Test 13:47:21 (#1) [code = COVID-19 VACCINE (#1)] Future Scheduled 2022-12-21 [facility] 13:47:21 screening (procedure) [code = 149488795] Future Scheduled 2022-12-21 Scre[facility] Test 13:47:21 malignant neoplasm of cervix (procedure) [code = 702001842] Future Scheduled 2022-12-21 BREAST CANCER [facility] Test 13:47:21 SCREENING [code = BREAST CANCER SCREENING] Future Scheduled 2022-12-21 [facility]:47:21 [code = INFLUENZA VACCINE] Future Scheduled 2022-10-29 [facility]INE [facility] Test 14:01:19 (#1) [code = COVID-19 VACCINE (#1)] Future Scheduled 2022-10-29 [facility] 14:01:19 screening (procedure) [code = 734459437] Future Scheduled 2022-10-29 [facility] Test 14:01:19 malignant neoplasm of cervix (procedure) [code = 330791424] Future Scheduled 2022-10-29 BREAST CANCER [facility] Test 14:01:19 SCREENING [code = BREAST CANCER SCREENING] Future Scheduled 2022-10-29 [facility] 14:01:19 [code = INFLUENZA VACCINE] Future Scheduled 2022-10-29 [facility] 14:01:19 (#1) [code = COVID-19 VACCINE (#1)] Future Scheduled 2022-10-29 [facility] 14:01:19 screening (procedure) [code = 548224577] Future Scheduled 2022-10-29 [facility] Test 14:01:19 malignant neoplasm of cervix (procedure) [code = 510115327] Future Scheduled 2022-10-29 BREAST CANCER [facility] Test 14:01:19 SCREENING [code = BREAST CANCER SCREENING] Future Scheduled 2022-10-29 [facility] 14:01:19 [code = INFLUENZA VACCINE] Future Scheduled 2022-06-30 [facility] 13:24:39 (#1) [code = COVID-19 VACCINE (#1)] Future Scheduled 2022-06-30 [facility] 13:24:39 screening (procedure) [code = 878743515] Future Scheduled 2022-06-30 [facility] Test 13:24:39 malignant neoplasm of cervix (procedure) [code = 936657428] Future Scheduled 2022-06-30 BREAST CANCER [facility] Test 13:24:39 SCREENING [code = BREAST CANCER SCREENING] Future Scheduled 2022-06-30 [facility] 13:24:39 [code = INFLUENZA VACCINE] Future Scheduled 2022-06-30 [facility]INE [facility] 13:24:39 (#1) [code = COVID-19 VACCINE (#1)] Future Scheduled 2022-06-30 [facility] 13:24:39 screening (procedure) [code = 458953330] Future Scheduled 2022-06-30 [facility] Test 13:24:39 malignant neoplasm of cervix (procedure) [code = 721381974] Future Scheduled 2022-06-30 BREAST CANCER [facility] Test 13:24:39 SCREENING [code = BREAST CANCER SCREENING] Future Scheduled 2022-06-30 [facility] VACCINE [facility] 13:24:39 [code = INFLUENZA VACCINE] Future Scheduled 2022-06-30 COVID-19 VACCINE [facility] Test 13:24:39 (#1) [code = COVID-19 VACCINE (#1)] Future Scheduled 2022-06-30 [facility] 13:24:39 screening (procedure) [code = 872907273] Future Scheduled 2022-06-30 [facility] Test 13:24:39 malignant neoplasm of cervix (procedure) [code = 698170522] Future Scheduled 2022-06-30 BREAST CANCER [facility] Test 13:24:39 SCREENING [code = BREAST CANCER SCREENING] Future Scheduled 2022-06-30 [facility] 13:24:39 [code = INFLUENZA VACCINE] Future Scheduled 2022-05-12 HEPATITIS B [facility] 14:10:29 VACCINES (1 of 3 - 3-dose series) [code = HEPATITIS B VACCINES (1 of 3 - 3-dose series)] Future Scheduled 2022-05-12 COVID-19 VACCINE [facility] Test 14:10:29 (#1) [code = COVID-19 VACCINE (#1)] Future Scheduled 2022-05-12 [facility] 14:10:29 screening (procedure) [code = 874348358] Future Scheduled 2022-05-12 Screening for [facility] Test 14:10:29 malignant neoplasm of cervix (procedure) [code = 769334848] Future Scheduled 2022-05-12 BREAST CANCER [facility] Test 14:10:29 SCREENING [code = BREAST CANCER SCREENING] Future Scheduled 2022-05-12 INFLUENZA VACCINE Method [facility] Test 14:10:29 [code = INFLUENZA VACCINE] Future Scheduled 2022-05-12 [facility]ITIS [facility] 14:10:29 VACCINES (1 of 3 - 3-dose series) [code = HEPATITIS B VACCINES (1 of 3 - 3-dose series)] Future Scheduled 2022-05-12 COVID-19 VACCINE [facility] Test 14:10:29 (#1) [code = COVID-19 VACCINE (#1)] Future Scheduled 2022-05-12 [facility] 14:10:29 screening (procedure) [code = 009095002] Future Scheduled 2022-05-12 Screening for [facility] Test 14:10:29 malignant neoplasm of cervix (procedure) [code = 821810342] Future Scheduled 2022-05-12 BREAST CANCER [facility] Test 14:10:29 SCREENING [code = BREAST CANCER SCREENING] Future Scheduled 2022-05-12 INFLUENZA VACCINE [facility] Test 14:10:29 [code = INFLUENZA VACCINE] Future Scheduled 2022-05-12 [facility] 14:10:29 VACCINES (1 of 3 - 3-dose series) [code = HEPATITIS B VACCINES (1 of 3 - 3-dose series)] Future Scheduled 2022-05-12 [facility]-19 [facility] Test 14:10:29 (#1) [code = COVID-19 VACCINE (#1)] Future Scheduled 2022-05-12 [facility] 14:10:29 screening (procedure) [code = 809221765] Future Scheduled 2022-05-12 Screening for [facility] Test 14:10:29 malignant neoplasm of cervix (procedure) [code = 322550378] Future Scheduled 2022-05-12 BREAST CANCER [facility] Test 14:10:29 SCREENING [code = BREAST CANCER SCREENING] Future Scheduled 2022-05-12 INFLUENZA VACCINE [facility] Test 14:10:29 [code = INFLUENZA VACCINE] Future Scheduled 2022-05-12 [facility]ITIS B [facility] 14:10:29 VACCINES (1 of 3 - 3-dose series) [code = HEPATITIS B VACCINES (1 of 3 - 3-dose series)] Future Scheduled 2022-05-12 COVID-19 VACCINE [facility] Test 14:10:29 (#1) [code = COVID-19 VACCINE (#1)] Future Scheduled 2022-05-12 [facility] 14:10:29 screening (procedure) [code = 051589519] Future Scheduled 2022-05-12 Screening for [facility] Test 14:10:29 malignant neoplasm of cervix (procedure) [code = 169090883] Future Scheduled 2022-05-12 BREAST CANCER [facility] Test 14:10:29 SCREENING [code = BREAST CANCER SCREENING] Future Scheduled 2022-05-12 INFLUENZA VACCINE [facility] Test 14:10:29 [code = INFLUENZA VACCINE] Future Scheduled 2022-04-12 [facility] Test 08:53:27 screening (procedure) [code = 567412949] Future Scheduled 2022-04-12 Screening for [facility] Test 08:53:27 malignant neoplasm of cervix (procedure) [code = 337857089] Future Scheduled 2022-04-12 BREAST CANCER [facility] Test 08:53:27 SCREENING [code = BREAST CANCER SCREENING] Future Scheduled 2022-04-12 INFLUENZA VACCINE [facility] Test 08:53:27 [code = INFLUENZA VACCINE] Future Scheduled 2022-04-12 [facility] 08:53:27 VACCINES (1 of 3 - 3-dose series) [code = HEPATITIS B VACCINES (1 of 3 - 3-dose series)] Future Scheduled 2022-04-12 COVID-19 VACCINE [facility] Test 08:53:27 (#1) [code = COVID-19 VACCINE (#1)] Future Scheduled 2022-03-16 [facility] 11:35:00 VACCINES (1 of 3 - 3-dose series) [code = HEPATITIS B VACCINES (1 of 3 - 3-dose series)] Future Scheduled 2022-03-16 COVID-19 [facility]ACCINE [facility] Test 11:35:00 (#1) [code = COVID-19 VACCINE (#1)] Future Scheduled 2022-03-16 [facility] Test 11:35:00 screening (procedure) [code = 262096809] Future Scheduled 2022-03-16 Screening for [facility] Test 11:35:00 malignant neoplasm of cervix (procedure) [code = 245303606] Future Scheduled 2022-03-16 BREAST CANCER [facility] Test 11:35:00 SCREENING [code = BREAST CANCER SCREENING] Future Scheduled 2022-03-16 INFLUENZA VACCINE [facility] Test 11:35:00 [code = INFLUENZA VACCINE] Future Scheduled 2022-03-16 [facility]IS [facility] 11:35:00 VACCINES (1 of 3 - 3-dose series) [code = HEPATITIS B VACCINES (1 of 3 - 3-dose series)] Future Scheduled 2022-03-16 COVID-19 VACCINE [facility] Test 11:35:00 (#1) [code = COVID-19 VACCINE (#1)] Future Scheduled 2022-03-16 [facility] Test 11:35:00 screening (procedure) [code = 848084635] Future Scheduled 2022-03-16 Screening for [facility] Test 11:35:00 malignant neoplasm of cervix (procedure) [code = 643602926] Future Scheduled 2022-03-16 BREAST CANCER [facility] Test 11:35:00 SCREENING [code = BREAST CANCER SCREENING] Future Scheduled 2022-03-16 INFLUENZA VACCINE [facility] Test 11:35:00 [code = INFLUENZA VACCINE] Future Scheduled 2022-03-09 [facility]IS [facility] 12:08:14 VACCINES (1 of 3 - 3-dose series) [code = HEPATITIS B VACCINES (1 of 3 - 3-dose series)] Future Scheduled 2022-03-09 COVID-19 VACCINE [facility] Test 12:08:14 (#1) [code = COVID-19 VACCINE (#1)] Future Scheduled 2022-03-09 [facility] 12:08:14 screening (procedure) [code = 592148505] Future Scheduled 2022-03-09 [facility] Test 12:08:14 malignant neoplasm of cervix (procedure) [code = 849457471] Future Scheduled 2022-03-09 BREAST CANCER [facility] Test 12:08:14 SCREENING [code = BREAST CANCER SCREENING] Future Scheduled 2022-03-09 INFLUENZA VACCINE [facility] Test 12:08:14 [code = INFLUENZA VACCINE] Future Scheduled 2022-03-09 [facility] 12:08:14 VACCINES (1 of 3 - 3-dose series) [code = HEPATITIS B VACCINES (1 of 3 - 3-dose series)] Future Scheduled 2022-03-09 COVID-19 VACCINE [facility] Test 12:08:14 (#1) [code = COVID-19 VACCINE (#1)] Future Scheduled 2022-03-09 [facility] Test 12:08:14 screening (procedure) [code = 066429564] Future Scheduled 2022-03-09 Screening for [facility] Test 12:08:14 malignant neoplasm of cervix (procedure) [code = 286989206] Future Scheduled 2022-03-09 BREAST CANCER [facility] Test 12:08:14 SCREENING [code = BREAST CANCER SCREENING] Future Scheduled 2022-03-09 INFLUENZA VACCINE [facility] Test 12:08:14 [code = INFLUENZA VACCINE] Future Scheduled 2022-03-09 [facility]ITIS B [facility] 12:08:14 VACCINES (1 of 3 - 3-dose series) [code = HEPATITIS B VACCINES (1 of 3 - 3-dose series)] Future Scheduled 2022-03-09 COVID-19 VACCINE [facility] Test 12:08:14 (#1) [code = COVID-19 VACCINE (#1)] Future Scheduled 2022-03-09 [facility] 12:08:14 screening (procedure) [code = 327410457] Future Scheduled 2022-03-09 Screening for [facility] Test 12:08:14 malignant neoplasm of cervix (procedure) [code = 966061113] Future Scheduled 2022-03-09 BREAST CANCER [facility] Test 12:08:14 SCREENING [code = BREAST CANCER SCREENING] Future Scheduled 2022-03-09 INFLUENZA VACCINE [facility] Test 12:08:14 [code = INFLUENZA VACCINE] Goal Plan of Care Note [code = 85316-8] Goal Plan of Care Note [code = 69424-6] Goal Plan of Care Note [code = 47932-9] Goal Plan of Care Note [code = 80132-7] Goal Plan of Care Note [code = 72294-7] Goal Plan of Care Note [code = 64593-4] Goal Plan of Care Note [code = 75418-3] Goal Plan of Care Note [code = 88833-4] Goal Plan of Care Note [code = 65464-4] Goal Plan of Care Note [code = 67272-8] Goal Plan of Care Note [code = 85605-6] Goal Plan of Care Note [code = 78200-1] Goal Plan of Care Note [code = 46088-8] Goal Plan of Care Note [code = 64756-2] Goal Plan of Care Note [code = 15054-2] Goal Plan of Care Note [code = 43499-1] Goal Plan of Care Note [code = 84835-2] Goal Plan of Care Note [code = 83103-5] Goal Plan of Care Note [code = 88331-9] Goal Plan of Care Note [code = 55886-1] Goal Plan of Care Note [code = 10033-8] Goal Plan of Care Note [code = 12235-5] Goal Plan of Care Note [code = 07269-7] Goal Plan of Care Note [code = 90101-6] Goal Plan of Care Note [code = 88491-1] Goal Plan of Care Note [code = 30878-1] Goal Plan of Care Note [code = 96764-5] Goal Plan of Care Note [code = 73598-0] Goal Plan of Care Note [code = 93022-1] Goal Plan of Care Note [code = 73556-9] Goal Plan of Care Note [code = 08657-7] Goal Plan of Care Note [code = 02351-4] Goal Plan of Care Note [code = 18992-5] Goal Plan of Care Note [code = 10896-8] Goal Plan of Care Note [code = 36620-1] Goal Plan of Care Note [code = 81431-2] Goal Plan of Care Note [code = 80281-1] Goal Plan of Care Note [code = 27523-5] Goal Plan of Care Note [code = 66440-3] Goal Plan of Care Note [code = 56235-0] Goal Plan of Care Note [code = 79660-6] Goal Plan of Care Note [code = 08688-0] Goal Plan of Care Note [code = 39661-0] Goal Plan of Care Note [code = 44897-5] Goal Plan of Care Note [code = 43166-9] Goal Plan of Care Note [code = 05302-3] Goal Plan of Care Note [code = 45153-6] Goal Plan of Care Note [code = 67893-9] Goal Plan of Care Note [code = 67576-4] Goal Plan of Care Note [code = 05896-6] Goal Plan of Care Note [code = 24534-9] Goal Plan of Care Note [code = 23095-9] Goal Plan of Care Note [code = 83887-7] Goal Plan of Care Note [code = 00324-7] Goal Plan of Care Note [code = 97736-5] Goal Plan of Care Note [code = 12008-1] Goal Plan of Care Note [code = 60261-6] Goal Plan of Care Note [code = 87811-0] Goal Plan of Care Note [code = 30429-1] Goal Plan of Care Note [code = 32810-1] Goal Plan of Care Note [code = 46264-1] Goal Plan of Care Note [code = 89711-8] Goal Plan of Care Note [code = 03831-3] Goal Plan of Care Note [code = 72270-5] Goal Plan of Care Note [code = 83864-2] Goal Plan of Care Note [code = 17070-7] Goal Plan of Care Note [code = 11263-7] Goal Plan of Care Note [code = 08317-0] Goal Plan of Care Note [code = 04191-2] Goal Plan of Care Note [code = 03851-3] Goal Plan of Care Note [code = 93099-2] Goal Plan of Care Note [code = 96864-1] Goal Plan of Care Note [code = 02704-2] Goal Plan of Care Note [code = 67082-1] Goal Plan of Care Note [code = 05014-7] Goal Plan of Care Note [code = 87658-1] Goal Plan of Care Note [code = 34940-1] Goal Plan of Care Note [code = 37549-2] Goal Plan of Care Note [code = 77951-8] Goal Plan of Care Note [code = 96469-7] Goal Plan of Care Note [code = 35223-2] Goal Plan of Care Note [code = 95500-4] Goal Plan of Care Note [code = 40236-0] Goal Plan of Care Note [code = 43603-0] Goal Plan of Care Note [code = 11758-3] Goal Plan of Care Note [code = 50219-4] Goal Plan of Care Note [code = 89161-8] Goal Plan of Care Note [code = 07528-6] Goal Plan of Care Note [code = 12716-5] Goal Plan of Care Note [code = 63169-2] Goal Plan of Care Note [code = 68944-5] Goal Plan of Care Note [code = 55126-7] Goal Plan of Care Note [code = 88931-6] Goal Plan of Care Note [code = 45186-2] Goal Plan of Care Note [code = 48047-0] Goal Plan of Care Note [code = 52863-7] Goal Plan of Care Note [code = 90504-4] Goal Plan of Care Note [code = 63939-5] Goal Plan of Care Note [code = 27271-5] Goal Plan of Care Note [code = 19511-0] Goal Plan of Care Note [code = 29731-1] Goal Plan of Care Note [code = 78358-7] Goal Plan of Care Note [code = 82961-5] Goal Plan of Care Note [code = 72758-7] Goal Plan of Care Note [code = 25495-9] Goal Plan of Care Note [code = 01316-6] Goal Plan of Care Note [code = 79657-6] Goal Plan of Care Note [code = 87723-8] Goal Plan of Care Note [code = 07119-8] Goal Plan of Care Note [code = 67090-5] Goal Plan of Care Note [code = 88877-0] Goal Plan of Care Note [code = 48608-9] Goal Plan of Care Note [code = 11562-4] Goal Plan of Care Note [code = 54705-0] Goal Plan of Care Note [code = 06134-9] Goal Plan of Care Note [code = 66621-8] Goal Plan of Care Note [code = 70974-9] Goal Plan of Care Note [code = 45928-6] Goal Plan of Care Note [code = 43178-3] Goal Plan of Care Note [code = 77620-4] Goal Plan of Care Note [code = 46992-7] Goal Plan of Care Note [code = 37949-3] Goal Plan of Care Note [code = 53460-6] Goal Plan of Care Note [code = 78516-0] Goal Plan of Care Note [code = 22884-8] Goal Plan of Care Note [code = 35798-6] Goal Plan of Care Note [code = 35772-1] Goal Plan of Care Note [code = 60035-3] Goal Plan of Care Note [code = 01718-6] Goal Plan of Care Note [code = 76419-4] Goal Plan of Care Note [code = 39531-5] Goal Plan of Care Note [code = 44635-6] Goal Plan of Care Note [code = 73057-2] Goal Plan of Care Note [code = 97925-9] Goal Plan of Care Note [code = 71149-3] Goal Plan of Care Note [code = 62637-5] Goal Plan of Care Note [code = 41671-0] Goal Plan of Care Note [code = 97486-9] Goal Plan of Care Note [code = 90186-4] Goal Plan of Care Note [code = 08502-9] Goal Plan of Care Note [code = 48548-0] Goal Plan of Care Note [code = 23681-3] Goal Plan of Care Note [code = 96823-2] Goal Plan of Care Note [code = 14999-9] Goal Plan of Care Note [code = 52581-3] Goal Plan of Care Note [code = 37116-5] Goal Plan of Care Note [code = 34645-7] Goal Plan of Care Note [code = 88346-8] Goal Plan of Care Note [code = 57847-2] Goal Plan of Care Note [code = 72428-0] Goal Plan of Care Note [code = 09949-5] Goal Plan of Care Note [code = 52442-1] Goal Plan of Care Note [code = 50734-0] Goal Plan of Care Note [code = 97461-3] Goal Plan of Care Note [code = 92428-6] Goal Plan of Care Note [code = 13973-6] Goal Plan of Care Note [code = 75009-1] Goal Plan of Care Note [code = 48453-3] Goal Plan of Care Note [code = 76706-3] Goal Plan of Care Note [code = 09100-4] Goal Plan of Care Note [code = 75807-5] Goal Plan of Care Note [code = 04493-5] Goal Plan of Care Note [code = 78466-0] Goal Plan of Care Note [code = 14774-0] Goal Plan of Care Note [code = 20722-8] Goal Plan of Care Note [code = 55850-1] Goal Plan of Care Note [code = 08143-1] Goal Plan of Care Note [code = 81026-1] Goal Plan of Care Note [code = 20762-8] Goal Plan of Care Note [code = 61470-5] Goal Plan of Care Note [code = 46220-3] Goal Plan of Care Note [code = 11977-1] Goal Plan of Care Note [code = 86104-2] Goal Plan of Care Note [code = 06114-9] Goal Plan of Care Note [code = 20565-5] Goal Plan of Care Note [code = 33398-5] Goal Plan of Care Note [code = 87929-5] Goal Plan of Care Note [code = 25457-2] Goal Plan of Care Note [code = 96740-8] Goal Plan of Care Note [code = 94039-8] Goal Plan of Care Note [code = 71806-0] Goal Plan of Care Note [code = 66288-8] Goal Plan of Care Note [code = 04355-1] Goal Plan of Care Note [code = 49533-5] Goal Plan of Care Note [code = 73853-8] Goal Plan of Care Note [code = 02730-6] Goal Plan of Care Note [code = 38501-6] Goal Plan of Care Note [code = 89129-2] Goal Plan of Care Note [code = 98676-0] Goal Plan of Care Note [code = 28696-9] Goal Plan of Care Note [code = 36714-0] Goal Plan of Care Note [code = 90596-3] Goal Plan of Care Note [code = 34403-9] Goal Plan of Care Note [code = 01370-1] Goal Plan of Care Note [code = 21753-6] Goal Plan of Care Note [code = 57117-4] Goal Plan of Care Note [code = 00512-9] Goal Plan of Care Note [code = 54358-9] Goal Plan of Care Note [code = 67091-7] Goal Plan of Care Note [code = 57917-9] Goal Plan of Care Note [code = 90179-0] Goal Plan of Care Note [code = 38296-3] Goal Plan of Care Note [code = 85551-8] Goal Plan of Care Note [code = 00472-7] Goal Plan of Care Note [code = 31375-1] Goal Plan of Care Note [code = 35827-9] Goal Plan of Care Note [code = 63441-6] Goal Plan of Care Note [code = 83394-7] Goal Plan of Care Note [code = 87080-0] Goal Plan of Care Note [code = 53903-0] Goal Plan of Care Note [code = 41108-6] Goal Plan of Care Note [code = 20705-5] Goal Plan of Care Note [code = 66417-9] Goal Plan of Care Note [code = 13380-2] Goal Plan of Care Note [code = 91243-2] Goal Plan of Care Note [code = 27650-8] Goal Plan of Care Note [code = 43986-1] Goal Plan of Care Note [code = 23174-1] Goal Plan of Care Note [code = 05620-5] Goal Plan of Care Note [code = 44888-4] Goal Plan of Care Note [code = 29360-3] Goal Plan of Care Note [code = 76674-3] Goal Plan of Care Note [code = 18996-2] Goal Plan of Care Note [code = 55156-9] Goal Plan of Care Note [code = 67739-6] Goal Plan of Care Note [code = 80154-5] Goal Plan of Care Note [code = 44044-5] Goal Plan of Care Note [code = 13438-6] Goal Plan of Care Note [code = 14318-9] Goal Plan of Care Note [code = 21815-9] Goal Plan of Care Note [code = 98215-1] Goal Plan of Care Note [code = 00853-3] Goal Plan of Care Note [code = 91326-9] Goal Plan of Care Note [code = 86548-7] Goal Plan of Care Note [code = 53630-1] Goal Plan of Care Note [code = 40988-1] Goal Plan of Care Note [code = 07067-1] Goal Plan of Care Note [code = 37596-1] Goal Plan of Care Note [code = 04163-6] Goal Plan of Care Note [code = 76424-6] Goal Plan of Care Note [code = 86003-6] Goal Plan of Care Note [code = 31234-1] Goal Plan of Care Note [code = 69287-0] Goal Plan of Care Note [code = 24432-0] Goal Plan of Care Note [code = 44496-4] Goal Plan of Care Note [code = 82889-2] Goal Plan of Care Note [code = 26651-9] Goal Plan of Care Note [code = 60591-0] Goal Plan of Care Note [code = 25263-3] Goal Plan of Care Note [code = 40626-3] Goal Plan of Care Note [code = 75862-7] Goal Plan of Care Note [code = 63509-9] Goal Plan of Care Note [code = 17805-2] Goal Plan of Care Note [code = 79625-0] Goal Plan of Care Note [code = 70453-5] Goal Plan of Care Note [code = 26111-1] Goal Plan of Care Note [code = 33143-1] Goal Plan of Care Note [code = 70654-1] Goal Plan of Care Note [code = 47707-1] Goal Plan of Care Note [code = 76071-2] Goal Plan of Care Note [code = 63485-4] Goal Plan of Care Note [code = 08080-9] Goal Plan of Care Note [code = 50042-8] Goal Plan of Care Note [code = 31004-3] Goal Plan of Care Note [code = 88780-8] Goal Plan of Care Note [code = 13330-5] Goal Plan of Care Note [code = 25381-5] Goal Plan of Care Note [code = 97982-6] Goal Plan of Care Note [code = 56422-1] Goal Plan of Care Note [code = 76012-8] Goal Plan of Care Note [code = 45394-3] Goal Plan of Care Note [code = 68031-3] Goal Plan of Care Note [code = 75322-1] Goal Plan of Care Note [code = 23986-2] Goal Plan of Care Note [code = 63538-5] Goal Plan of Care Note [code = 19257-4] Goal Plan of Care Note [code = 16338-1] Goal Plan of Care Note [code = 62148-6] Goal Plan of Care Note [code = 96548-3] Goal Plan of Care Note [code = 22160-8] Goal Plan of Care Note [code = 39807-7] Goal Plan of Care Note [code = 98446-9] Goal Plan of Care Note [code = 48917-4] Goal Plan of Care Note [code = 94915-1] Goal Plan of Care Note [code = 02865-4] Goal Plan of Care Note [code = 66583-3] Goal Plan of Care Note [code = 08787-4] Goal Plan of Care Note [code = 31168-7] Goal Plan of Care Note [code = 73701-1] Goal Plan of Care Note [code = 75867-6] Goal Plan of Care Note [code = 87129-0] Goal Plan of Care Note [code = 87640-0] Goal Plan of Care Note [code = 78399-9] Goal Plan of Care Note [code = 00301-3] Goal Plan of Care Note [code = 74407-6] Goal Plan of Care Note [code = 48366-0] Goal Plan of Care Note [code = 23834-0] Goal Plan of Care Note [code = 10681-7] Goal Plan of Care Note [code = 51628-8] Goal Plan of Care Note [code = 91082-7] Goal Plan of Care Note [code = 25796-8] Goal Plan of Care Note [code = 88376-1] Goal Plan of Care Note [code = 87807-0] Goal Plan of Care Note [code = 16880-3] Goal Plan of Care Note [code = 15210-5] Goal Plan of Care Note [code = 04859-6] Goal Plan of Care Note [code = 30229-3] Goal Plan of Care Note [code = 09626-8] Goal Plan of Care Note [code = 23838-2] Goal Plan of Care Note [code = 05504-3] Goal Plan of Care Note [code = 49533-3] Goal Plan of Care Note [code = 54985-6] Goal Plan of Care Note [code = 72611-9] Goal Plan of Care Note [code = 56045-8] Goal Plan of Care Note [code = 84411-1] Goal Plan of Care Note [code = 13853-4] Goal Plan of Care Note [code = 95948-0] Goal Plan of Care Note [code = 39174-2] Goal Plan of Care Note [code = 40750-7] Goal Plan of Care Note [code = 15780-7] Goal Plan of Care Note [code = 99612-8] Goal Plan of Care Note [code = 17519-7] Goal Plan of Care Note [code = 27424-0] Goal Plan of Care Note [code = 17375-8] Goal Plan of Care Note [code = 43631-8] Goal Plan of Care Note [code = 62915-8] Goal Plan of Care Note [code = 97062-3] Goal Plan of Care Note [code = 29359-7] Goal Plan of Care Note [code = 89730-8] Goal Plan of Care Note [code = 44239-4] Goal Plan of Care Note [code = 73264-2] Goal Plan of Care Note [code = 26791-6] Goal Plan of Care Note [code = 82151-7] Goal Plan of Care Note [code = 27316-2] Goal Plan of Care Note [code = 40155-0] Goal Plan of Care Note [code = 75224-0] Goal Plan of Care Note [code = 95665-0] Goal Plan of Care Note [code = 23638-6] Goal Plan of Care Note [code = 91732-1] Goal Plan of Care Note [code = 09365-0] Goal Plan of Care Note [code = 92700-9] Goal Plan of Care Note [code = 51106-6] Goal Plan of Care Note [code = 72980-5] Goal Plan of Care Note [code = 04328-0] Goal Plan of Care Note [code = 44429-2] Goal Plan of Care Note [code = 03699-6] Goal Plan of Care Note [code = 14903-5] Goal Plan of Care Note [code = 24183-0] Goal Plan of Care Note [code = 04704-7] Goal Plan of Care Note [code = 09996-6] Goal Plan of Care Note [code = 70165-6] Goal Plan of Care Note [code = 07797-3] Goal Plan of Care Note [code = 73971-4] Goal Plan of Care Note [code = 80286-4] Goal Plan of Care Note [code = 74545-5] Goal Plan of Care Note [code = 61688-4] Goal Plan of Care Note [code = 09787-9] Goal Plan of Care Note [code = 92456-1] Goal Plan of Care Note [code = 68319-0] Goal Plan of Care Note [code = 65476-2] Goal Plan of Care Note [code = 05000-3] Goal Plan of Care Note [code = 82884-2] Goal Plan of Care Note [code = 96380-5] Goal Plan of Care Note [code = 58811-1] Goal Plan of Care Note [code = 21986-5] Goal Plan of Care Note [code = 14523-3] Goal Plan of Care Note [code = 94566-5] Goal Plan of Care Note [code = 07809-2] Goal Plan of Care Note [code = 65563-4] Goal Plan of Care Note [code = 71457-0] Goal Plan of Care Note [code = 40944-6] Goal Plan of Care Note [code = 26531-8] Goal Plan of Care Note [code = 54094-9] Goal Plan of Care Note [code = 99869-9] Goal Plan of Care Note [code = 81842-9] Goal Plan of Care Note [code = 43643-5] Goal Plan of Care Note [code = 42138-6] Goal Plan of Care Note [code = 35344-2] Goal Plan of Care Note [code = 30764-3] Goal Plan of Care Note [code = 93408-8] Goal Plan of Care Note [code = 71310-2] Goal Plan of Care Note [code = 38362-1] Goal Plan of Care Note [code = 26927-6] Goal Plan of Care Note [code = 05389-3] Goal Plan of Care Note [code = 18260-9] Goal Plan of Care Note [code = 55136-4] Goal Plan of Care Note [code = 25286-1] Goal Plan of Care Note [code = 81688-5] Goal Plan of Care Note [code = 68519-8] Goal Plan of Care Note [code = 92899-8] Goal Plan of Care Note [code = 12304-7] Goal Plan of Care Note [code = 00152-3] Goal Plan of Care Note [code = 37183-0] Goal Plan of Care Note [code = 91107-1] Goal Plan of Care Note [code = 75382-5] Goal Plan of Care Note [code = 14529-9] Goal Plan of Care Note [code = 54569-1] Goal Plan of Care Note [code = 91162-2] Goal Plan of Care Note [code = 19366-3] Goal Plan of Care Note [code = 72517-6] Goal Plan of Care Note [code = 82405-7] Goal Plan of Care Note [code = 10372-3] Goal Plan of Care Note [code = 70601-8] Goal Plan of Care Note [code = 63518-0] Goal Plan of Care Note [code = 27733-5] Goal Plan of Care Note [code = 40823-4] Goal Plan of Care Note [code = 59049-9] Goal Plan of Care Note [code = 67694-9] Goal Plan of Care Note [code = 13155-3] Goal Plan of Care Note [code = 88242-2] Goal Plan of Care Note [code = 05613-8] Goal Plan of Care Note [code = 60004-7] Goal Plan of Care Note [code = 76672-8] Goal Plan of Care Note [code = 39517-4] Goal Plan of Care Note [code = 72322-8] Goal Plan of Care Note [code = 88240-1] Goal Plan of Care Note [code = 09423-2] Goal Plan of Care Note [code = 27493-7] Goal Plan of Care Note [code = 06745-7] Goal Plan of Care Note [code = 61594-8] Goal Plan of Care Note [code = 83410-4] Goal Plan of Care Note [code = 39812-5] Goal Plan of Care Note [code = 70069-8] Goal Plan of Care Note [code = 73407-7] Goal Plan of Care Note [code = 80640-8] Goal Plan of Care Note [code = 48448-4] Goal Plan of Care Note [code = 66044-0] Goal Plan of Care Note [code = 36008-9] Goal Plan of Care Note [code = 70450-7] Goal Plan of Care Note [code = 72733-5] Goal Plan of Care Note [code = 52054-5] Goal Plan of Care Note [code = 93514-1] Goal Plan of Care Note [code = 65890-1] Goal Plan of Care Note [code = 62042-3] Goal Plan of Care Note [code = 20854-1] Goal Plan of Care Note [code = 59140-4] Goal Plan of Care Note [code = 61347-1] Goal Plan of Care Note [code = 48961-8] Goal Plan of Care Note [code = 30741-3] Goal Plan of Care Note [code = 68154-2] Goal Plan of Care Note [code = 15716-2] Goal Plan of Care Note [code = 20525-0] Goal Plan of Care Note [code = 97902-7] Goal Plan of Care Note [code = 11227-2] Goal Plan of Care Note [code = 45091-2] Goal Plan of Care Note [code = 24094-6] Goal Plan of Care Note [code = 81567-7] Goal Plan of Care Note [code = 67239-6] Goal Plan of Care Note [code = 06219-2] Goal Plan of Care Note [code = 92766-7] Goal Plan of Care Note [code = 35017-6] Goal Plan of Care Note [code = 32592-2] Goal Plan of Care Note [code = 31605-2] Goal Plan of Care Note [code = 17951-4] Goal Plan of Care Note [code = 99488-4] Goal Plan of Care Note [code = 09373-7] Goal Plan of Care Note [code = 42091-7] Goal Plan of Care Note [code = 14015-4] Goal Plan of Care Note [code = 57773-4] Goal Plan of Care Note [code = 57185-0] Goal Plan of Care Note [code = 53300-6] Goal Plan of Care Note [code = 82035-7] Goal Plan of Care Note [code = 60718-7] Goal Plan of Care Note [code = 90582-5] Goal Plan of Care Note [code = 77001-7] Goal Plan of Care Note [code = 82742-6] Goal Plan of Care Note [code = 28269-4] Goal Plan of Care Note [code = 58206-0] Goal Plan of Care Note [code = 95220-5] Goal Plan of Care Note [code = 26217-5] Goal Plan of Care Note [code = 89551-6] Goal Plan of Care Note [code = 73617-5] Goal Plan of Care Note [code = 77196-6] Goal Plan of Care Note [code = 54739-2] Goal Plan of Care Note [code = 43973-4] Goal Plan of Care Note [code = 65318-5] Goal Plan of Care Note [code = 10948-3] Goal Plan of Care Note [code = 19832-3] Goal Plan of Care Note [code = 77179-1] Goal Plan of Care Note [code = 61809-6] Goal Plan of Care Note [code = 17658-4] Goal Plan of Care Note [code = 92318-4] Goal Plan of Care Note [code = 58898-6] Goal Plan of Care Note [code = 51931-3] Goal Plan of Care Note [code = 92294-2] Goal Plan of Care Note [code = 07255-5] Goal Plan of Care Note [code = 42236-9] Goal Plan of Care Note [code = 60739-7] Goal Plan of Care Note [code = 17732-6] Goal Plan of Care Note [code = 65689-5] Goal Plan of Care Note [code = 26695-9] Goal Plan of Care Note [code = 18352-8] Goal Plan of Care Note [code = 22674-9] Goal Plan of Care Note [code = 72448-6] Goal Plan of Care Note [code = 09579-8] Goal Plan of Care Note [code = 03260-4] Goal Plan of Care Note [code = 19729-9] Goal Plan of Care Note [code = 20624-2] Goal Plan of Care Note [code = 88362-4] Goal Plan of Care Note [code = 21402-5] Goal Plan of Care Note [code = 45826-9] Goal Plan of Care Note [code = 93814-2] Goal Plan of Care Note [code = 06391-4] Goal Plan of Care Note [code = 40685-5] Goal Plan of Care Note [code = 56180-7] Goal Plan of Care Note [code = 22181-2] Goal Plan of Care Note [code = 70553-5] Goal Plan of Care Note [code = 22191-7] Goal Plan of Care Note [code = 80946-0] Goal Plan of Care Note [code = 89674-8] Goal Plan of Care Note [code = 38426-8] Goal Plan of Care Note [code = 18604-8] Goal Plan of Care Note [code = 18475-5] Goal Plan of Care Note [code = 90165-0] Goal Plan of Care Note [code = 89062-3] Goal Plan of Care Note [code = 27378-4] Goal Plan of Care Note [code = 45108-9] Goal Plan of Care Note [code = 13123-8] Goal Plan of Care Note [code = 15118-2] Goal Plan of Care Note [code = 73321-2] Goal Plan of Care Note [code = 03811-7] Goal Plan of Care Note [code = 92387-4] Goal Plan of Care Note [code = 23340-8] Goal Plan of Care Note [code = 31121-8] Goal Plan of Care Note [code = 97126-3] Goal Plan of Care Note [code = 61829-8] Goal Plan of Care Note [code = 96152-1] Goal Plan of Care Note [code = 79706-8] Goal Plan of Care Note [code = 23480-9] Goal Plan of Care Note [code = 62673-8] Goal Plan of Care Note [code = 62114-3] Goal Plan of Care Note [code = 78159-9] Goal Plan of Care Note [code = 92675-3] Goal Plan of Care Note [code = 05979-9] Goal Plan of Care Note [code = 85886-3] Goal Plan of Care Note [code = 57529-4] Goal Plan of Care Note [code = 18624-8] Goal Plan of Care Note [code = 72093-4] Goal Plan of Care Note [code = 72080-6] Goal Plan of Care Note [code = 73921-5] Goal Plan of Care Note [code = 61762-5] Goal Plan of Care Note [code = 47950-0] Goal Plan of Care Note [code = 84024-0] Goal Plan of Care Note [code = 36730-9] Goal Plan of Care Note [code = 05097-3] Goal Plan of Care Note [code = 85366-2] Goal Plan of Care Note [code = 18812-7] Goal Plan of Care Note [code = 62924-2] Goal Plan of Care Note [code = 11405-3] Goal Plan of Care Note [code = 22955-0] Goal Plan of Care Note [code = 68853-5] Goal Plan of Care Note [code = 05632-5] Goal Plan of Care Note [code = 50421-3] Goal Plan of Care Note [code = 74385-9] Goal Plan of Care Note [code = 23086-1] Goal Plan of Care Note [code = 81650-0] Goal Plan of Care Note [code = 26879-7] Goal Plan of Care Note [code = 18127-2] Goal Plan of Care Note [code = 05992-6] Goal Plan of Care Note [code = 07313-9] Goal Plan of Care Note [code = 19698-8] Goal Plan of Care Note [code = 37389-9] Goal Plan of Care Note [code = 53641-7] Goal Plan of Care Note [code = 11431-9] Goal Plan of Care Note [code = 71986-2] Goal Plan of Care Note [code = 22388-5] Goal Plan of Care Note [code = 07934-7] Goal Plan of Care Note [code = 90160-3] Goal Plan of Care Note [code = 53827-0] Goal Plan of Care Note [code = 05194-9] Goal Plan of Care Note [code = 47320-2] Goal Plan of Care Note [code = 07536-0] Goal Plan of Care Note [code = 94540-2] Goal Plan of Care Note [code = 78779-7] Goal Plan of Care Note [code = 22356-4] Goal Plan of Care Note [code = 83806-1] Goal Plan of Care Note [code = 79213-5] Goal Plan of Care Note [code = 12263-5] Goal Plan of Care Note [code = 15815-1] Goal Plan of Care Note [code = 22245-3] Goal Plan of Care Note [code = 40757-1] Goal Plan of Care Note [code = 03883-3] Goal Plan of Care Note [code = 11054-2] Goal Plan of Care Note [code = 83150-5] Goal Plan of Care Note [code = 63400-8] Goal Plan of Care Note [code = 68039-3] Goal Plan of Care Note [code = 22022-1] Goal Plan of Care Note [code = 04226-2] Goal Plan of Care Note [code = 77532-4] Goal Plan of Care Note [code = 31098-8] Goal Plan of Care Note [code = 26231-4] Goal Plan of Care Note [code = 66033-7] Goal Plan of Care Note [code = 47509-1] Goal Plan of Care Note [code = 35400-9] Goal Plan of Care Note [code = 31558-3] Goal Plan of Care Note [code = 90998-8] Goal Plan of Care Note [code = 01137-2] Goal Plan of Care Note [code = 94749-8] Goal Plan of Care Note [code = 18351-5] Goal Plan of Care Note [code = 86170-8] Goal Plan of Care Note [code = 41637-5] Goal Plan of Care Note [code = 88114-0] Goal Plan of Care Note [code = 27544-7] Goal Plan of Care Note [code = 85789-8] Goal Plan of Care Note [code = 22829-3] Goal Plan of Care Note [code = 55485-3] Goal Plan of Care Note [code = 31158-7] Goal Plan of Care Note [code = 92933-2] Goal Plan of Care Note [code = 46090-2] Goal Plan of Care Note [code = 73225-1] Goal Plan of Care Note [code = 69361-1] Goal Plan of Care Note [code = 55414-8] Goal Plan of Care Note [code = 13774-0] Goal Plan of Care Note [code = 28080-0] Goal Plan of Care Note [code = 38447-1] Goal Plan of Care Note [code = 49855-6] Goal Plan of Care Note [code = 77500-1] Goal Plan of Care Note [code = 48251-4] Goal Plan of Care Note [code = 32396-6] Goal Plan of Care Note [code = 67961-9] Goal Plan of Care Note [code = 87470-1] Goal Plan of Care Note [code = 04588-6] Goal Plan of Care Note [code = 01221-0] Goal Plan of Care Note [code = 98550-6] Goal Plan of Care Note [code = 02991-3] Goal Plan of Care Note [code = 30081-9] Goal Plan of Care Note [code = 79207-5] Goal Plan of Care Note [code = 70583-0] Goal Plan of Care Note [code = 31211-9] Goal Plan of Care Note [code = 66530-1] Goal Plan of Care Note [code = 44924-7] Goal Plan of Care Note [code = 55684-2] Goal Plan of Care Note [code = 29572-7] Goal Plan of Care Note [code = 64395-2] Goal Plan of Care Note [code = 76462-8] Goal Plan of Care Note [code = 55539-7] Goal Plan of Care Note [code = 50070-5] Goal Plan of Care Note [code = 67533-8] Goal Plan of Care Note [code = 73385-0] Goal Plan of Care Note [code = 38088-2] Goal Plan of Care Note [code = 28424-2] Goal Plan of Care Note [code = 01928-8] Goal Plan of Care Note [code = 84142-6] Goal Plan of Care Note [code = 48075-7] Goal Plan of Care Note [code = 37889-6] Goal Plan of Care Note [code = 66525-9] Goal Plan of Care Note [code = 75195-3] Goal Plan of Care Note [code = 13604-8] Goal Plan of Care Note [code = 15406-9] Goal Plan of Care Note [code = 09100-0] Goal Plan of Care Note [code = 25493-4] Goal Plan of Care Note [code = 01840-7] Goal Plan of Care Note [code = 35545-8] Goal Plan of Care Note [code = 87200-8] Goal Plan of Care Note [code = 78566-1] Goal Plan of Care Note [code = 02332-0] Goal Plan of Care Note [code = 61718-7] Goal Plan of Care Note [code = 06664-8] Goal Plan of Care Note [code = 29700-1] Goal Plan of Care Note [code = 41482-5] Goal Plan of Care Note [code = 94734-2] Goal Plan of Care Note [code = 75959-7] Goal Plan of Care Note [code = 59573-2] Goal Plan of Care Note [code = 63370-0] Goal Plan of Care Note [code = 50313-9] Goal Plan of Care Note [code = 10374-5] Goal Plan of Care Note [code = 63824-2] Goal Plan of Care Note [code = 09705-7] Goal Plan of Care Note [code = 45372-6] Goal Plan of Care Note [code = 56018-0] Goal Plan of Care Note [code = 64355-0] Goal Plan of Care Note [code = 90506-5] Goal Plan of Care Note [code = 77043-7] Goal Plan of Care Note [code = 53891-2] Goal Plan of Care Note [code = 09569-7] Goal Plan of Care Note [code = 01161-9] Goal Plan of Care Note [code = 22797-5] Goal Plan of Care Note [code = 84177-0] Goal Plan of Care Note [code = 67734-5] Goal Plan of Care Note [code = 87296-6] Goal Plan of Care Note [code = 44122-9] Goal Plan of Care Note [code = 16917-2] Goal Plan of Care Note [code = 33242-6] Goal Plan of Care Note [code = 66225-7] Goal Plan of Care Note [code = 36290-7] Goal Plan of Care Note [code = 77788-1] Goal Plan of Care Note [code = 92141-2] Goal Plan of Care Note [code = 05222-1] Goal Plan of Care Note [code = 80789-9] Goal Plan of Care Note [code = 49679-6] Goal Plan of Care Note [code = 11324-2] Goal Plan of Care Note [code = 84377-3] Goal Plan of Care Note [code = 31433-8] Goal Plan of Care Note [code = 86168-2] Goal Plan of Care Note [code = 60188-1] Goal Plan of Care Note [code = 35789-2] Goal Plan of Care Note [code = 65604-4] Goal Plan of Care Note [code = 14475-9] Goal Plan of Care Note [code = 75335-3] Goal Plan of Care Note [code = 26665-3] Goal Plan of Care Note [code = 99013-0] Goal Plan of Care Note [code = 78201-8] Goal Plan of Care Note [code = 15249-8] Goal Plan of Care Note [code = 86211-1] Goal Plan of Care Note [code = 25929-4] Goal Plan of Care Note [code = 48295-9] Goal Plan of Care Note [code = 84581-9] Goal Plan of Care Note [code = 43878-6] Goal Plan of Care Note [code = 15214-8] Goal Plan of Care Note [code = 62385-3] Goal Plan of Care Note [code = 91770-2] Goal Plan of Care Note [code = 53491-1] Goal Plan of Care Note [code = 66000-1] Goal Plan of Care Note [code = 68249-3] Goal Plan of Care Note [code = 83945-4] Goal Plan of Care Note [code = 83838-7] Goal Plan of Care Note [code = 97950-1] Goal Plan of Care Note [code = 51554-6] Goal Plan of Care Note [code = 49028-9] Goal Plan of Care Note [code = 03003-9] Goal Plan of Care Note [code = 98413-8] Goal Plan of Care Note [code = 39699-8] Goal Plan of Care Note [code = 70104-9] Goal Plan of Care Note [code = 02097-2] Goal Plan of Care Note [code = 94947-7] Goal Plan of Care Note [code = 71585-5] Goal Plan of Care Note [code = 64940-8] Goal Plan of Care Note [code = 64874-6] Goal Plan of Care Note [code = 01383-6] Goal Plan of Care Note [code = 58100-6] Goal Plan of Care Note [code = 41333-0] Goal Plan of Care Note [code = 99010-8] Goal Plan of Care Note [code = 97180-3] Goal Plan of Care Note [code = 09532-6] Goal Plan of Care Note [code = 59931-6] Goal Plan of Care Note [code = 86197-8] Goal Plan of Care Note [code = 05696-6] Goal Plan of Care Note [code = 83518-6] Goal Plan of Care Note [code = 17585-7] Goal Plan of Care Note [code = 42062-9] Goal Plan of Care Note [code = 30610-1] Goal Plan of Care Note [code = 79171-8] Goal Plan of Care Note [code = 25751-1] Goal Plan of Care Note [code = 41029-8] Goal Plan of Care Note [code = 18620-7] Goal Plan of Care Note [code = 06017-4] Goal Plan of Care Note [code = 74220-7] Goal Plan of Care Note [code = 11799-1] Goal Plan of Care Note [code = 67873-4] Goal Plan of Care Note [code = 99408-6] Goal Plan of Care Note [code = 24144-0] Goal Plan of Care Note [code = 67180-4] Goal Plan of Care Note [code = 33889-0] Goal Plan of Care Note [code = 74101-4] Goal Plan of Care Note [code = 10922-7] Goal Plan of Care Note [code = 45371-1] Goal Plan of Care Note [code = 07299-3] Goal Plan of Care Note [code = 86263-2] Goal Plan of Care Note [code = 97840-3] Goal Plan of Care Note [code = 07351-1] Goal Plan of Care Note [code = 14491-8] Goal Plan of Care Note [code = 39009-0] Goal Plan of Care Note [code = 26549-9] Goal Plan of Care Note [code = 33255-7] Goal Plan of Care Note [code = 88410-2] Goal Plan of Care Note [code = 92370-6] Goal Plan of Care Note [code = 46436-7] Goal Plan of Care Note [code = 03208-1] Goal Plan of Care Note [code = 16168-5] Encounters Start End Encounter Admission Attending Care Care Encounter Source Date/Time Date/Time Type Type Clinicians Facility Department ID 2021-05-10 Emergency [facility] [id number] [facility] 15:04:50 ity [facility] 2021-05-08 Emergency [facility] [id number] Univers 16:08:38 ity [facility] 2020-08-08 Inpatient Bebeto Valderrama [facility] RADI [id number] [facility] 15:30:00 59 [facility] 2020-08-02 Inpatient [facility] CARISSA [id number] [facility] 13:01:00 80 [facility] 2020-02-13 Inpatient [facility] CARISSA [id number] [facility] 19:15:00 41 [facility] 2020-01-16 Inpatient ERICA Wilson [facility] SURG [id number] [facility] 16:00:00 Tomiko 97 [facility] 2023-03-30 2023-03-30 Outpatient ANDREEA CUTLER [id number] [facility] 13:15:00 13:15:00 AMNA Seybol d 2023-02-28 2023-02-28 Outpatient ANDREEA RAIN [id number] [place] 15:45:00 15:45:00 ARLENE Seybol d 2023-02-02 2023-02-02 Outpatient ORLY THORPE [id number] [place] 14:30:00 14:30:00 Seybol d 2023-02-01 2023-02-01 Outpatient ZOYA GONZALEZ 122 [id number] [place] 15:00:00 15:00:00 Seybol d 2023-02-01 2023-02-01 Outpatient ANDREEA EID [id number] [place] 14:30:00 14:30:00 NICOLÁS Seybol d 2022-12-22 2022-12-22 Outpatient ANDREEA PEOPLES [id number] [place] 00:00:00 00:00:00 NETO Seybol d 2022-12-21 2022-12-21 Outpatient ANDREEA EID [id number] [place] 14:15:00 14:15:00 NICOLÁS Seybol d 2022-12-17 2022-12-17 Outpatient LAB90 ANDREEA BRAGA [id number] [place] 15:45:00 15:45:00 Seybol d 2022-12-17 2022-12-17 Outpatient ANDREEA PEOPLES [id number] [place] 15:00:00 15:00:00 NETO Seybol d 2022-12-15 2022-12-15 Outpatient LAB90 ANDREEA BRAGA [id number] [place] 08:30:00 08:30:00 Seybol d 2022-12-07 2022-12-07 Outpatient TRIANDREEADOMINGUEZ ANDREEA BRAGA [id number] [place] 00:00:00 00:00:00 MD CASANDRA Seybol d 2022-11-30 2022-11-30 Outpatient ANDREEA MCCLELLAND [id number] [place] 13:50:00 13:50:00 JUDI Seybol d 2022-11-29 2022-11-29 Outpatient ANDREEA MORRISON [id number] [place] 00:00:00 00:00:00 IVELISSE Seybol d 2022-11-29 2022-11-29 Outpatient ANDREEA BRAGA [id number] [place] 00:00:00 00:00:00 Seybol d 2022-11-29 2022-11-29 Outpatient ANDREEA PEOPLES [id number] [place] 00:00:00 00:00:00 NETO Seybol d 2022-11-24 2022-11-24 Outpatient ANDREEA PEOPLES [id number] [place] 15:00:00 15:00:00 NETO Seybol d 2022-11-03 2022-11-03 Emergency [facility] [id number] Univers 08:26:00 11:02:00 Katelyn BARBER [id number] i ty [facility] [id number] [facility] [id number] [place] [address] [place] 2022-11-03 2022-11-03 Emergency [facility] ERT [id number] Univers 08:26:00 11:02:00 KATELYN diaz [facility] 2022-11-01 2022-11-01 Outpatient [facility] [id number] Huang 16:16:49 16:16:49 0424 F Quirino 2022-11-01 2022-11-01 Outpatient PREZAS, ANDREEA BRAGA [id number] [place] 16:00:00 16:00:00 NETO Seybol d 2022-11-01 2022-11-01 Outpatient PREZAS, ANDREEA BRAGA [id number] [place] 00:00:00 00:00:00 NETO Seybol d 2022-10-27 2022-10-27 Outpatient NOAH, ANDREEA BRAGA [id number] [place] 14:00:00 14:00:00 FABIO Seybol d 2022-10-26 2022-10-26 Outpatient PREZAS, ANDREEA BRAGA [id number] [place] 00:00:00 00:00:00 NETO Seybol d 2022-10-26 2022-10-26 Outpatient PREZAS, ANDREEA BRAGA [id number] [place] 00:00:00 00:00:00 NETO Seybol d 2022-10-22 2022-10-22 Outpatient RAGINIANDREEA [id number] [place] 16:45:00 16:45:00 NICOLÁS Seybol d 2022-10-21 2022-10-21 Outpatient ORLY THORPE [id number] [place] 10:00:00 10:00:00 Seybol d 2022-10-01 2022-10-01 Outpatient PREZASANDREEA [id number] [place] 15:45:00 15:45:00 NETO Seybol d 2022-09-24 2022-09-24 Outpatient JARBRINK-SE ANDREEA BRAGA [id number] [place] 15:00:00 15:00:00 HGALYRIS Se ybold 2022-09-21 2022-09-21 Outpatient PREZAS, ANDREEA BRAGA [id number] [place] 15:00:00 15:00:00 NETO Seybol d 2022-09-20 2022-09-20 Outpatient PREZASANDREEA [id number] [place] 00:00:00 00:00:00 NETO Seybol d 2022-09-10 2022-09-10 Outpatient RAGINIANDREEA [id number] [place] 10:30:00 10:30:00 NICOLÁS Seybol d 2022-09-09 2022-09-09 Outpatient RICHELLE ANDREEA BRAGA [id number] [place] 00:00:00 00:00:00 NETO Seybol d 2022-09-09 2022-09-09 Outpatient RICHELLE ANDREEA BRAGA [id number] [place] 00:00:00 00:00:00 NETO Seybol d 2022-09-08 2022-09-08 Outpatient LAB90 ANDREEA BRAGA [id number] [place] 08:00:00 08:00:00 Seybol d 2022-09-07 2022-09-07 Outpatient RICHELLE ANDREEA BRAGA [id number] [place] 15:00:00 15:00:00 NETO Seybol d 2022-09-01 2022-09-01 Transition JIE Hargrove [id number] [facility] 00:00:00 00:00:00 of Care Leslie RIVERA [id number] i [facility] [id number] [facility] [id number] [facility] [address] 2022-08-26 2022-08-30 Inpatient X KAMALA NDCLAIR ANTONIO [id number] [facility] 14:36:00 10:41:00 MERI diaz [facility] 2022-08-26 2022-08-30 [facility] [place] Robert [facility] [id number]. [id number] [facility] 14:36:00 10:41:00 Encounter Meri Wray [id number] ity [facility] [id number] [id number] [place] [facility] [address] 2022-07-09 2022-07-09 Outpatient [facility] FREDRICK 34590-2 022 Huang 09:41:12 09:41:12 1230 F [place] 2022-07-09 2022-07-09 Outpatient [id number]- [id number] 9d [id number]-e 00:00:00 00:00:00 Visit b71k-5ip8 40c-4fc9-a -o9mv-502 8bb-636dec szvg8973b z5885m 2022-06-23 2022-06-23 Outpatient nb4s32gu- [id number] 5w90dk-3 00:00:00 00:00:00 Visit 7k6q-30y0 k9k-27g9-l -r7g1-k14 1i5-c433xh 1nd3i3690 3s3933 2022-06-21 2022-06-21 Emergency X [facility] ERT [id number] Univers 17:30:00 23:11:00 CYNANTWAN ity of [facility] 2022-06-21 2022-06-21 [facility] 1.2.324.180 [id number] Univers 17:30:00 23:11:00 Wendyantwan SUNIL 350.1.13.10 i [facility] 4.2.7.2.686 [facility] [id number] [address] 2022-06-18 2022-06-18 Outpatient SFA SFA [id number] 022 Huang 10:29:22 10:29:22 120[address] [place] 2022-06-18 2022-06-18 Outpatient 5ge2luo8- [id number] 3a i7bre2-c 00:00:00 00:00:00 Visit qd0h-8so6 i1f-8kt9-a -j870-n16 058-l2249q 16fnis077 cei306 2022-06-17 2022-06-17 Outpatient SFA SFA 10205-7 022 Huang 08:29:59 08:29:59 1208 F [place] 2022-06-16 2022-06-16 Outpatient SFA SFA [id number] 022 Huang 15:41:26 15:41:26 1207 F [place] 2022-06-16 2022-06-16 Outpatient 1r321l8h- [id number] 2f 073z9n-n 00:00:00 00:00:00 Visit dee3-4499 ee3-4499-9 -917d-e2d 17d-n3e024 21641433j 73724d 2022-06-04 2022-06-04 Outpatient SFA SFA [id number] 022 Huang 11:59:44 11:59:44 1125 F Quirino 2022-06-02 2022-06-02 Outpatient 99z31c4x- [id number] o73o7h-8 00:00:00 00:00:00 Visit 756a-4a2e 56a-4a2e-b -e302-a02 549-x6475v 25p9381l0 9815d6 2022-04-29 2022-04-29 Outpatient SFA [facility] [id number] 022 Huang 08:03:25 08:03:25 1020 F [place] 2022-04-29 2022-04-29 Outpatient [id number]- [id number] 6ut752-9 00:00:00 00:00:00 Visit 0rx2-0r81 bd7-4b85-9 -940e-c2d 40e-c2dfc3 uh5684657 706118 0151-10-14 2022-04-23 Outpatient yi4s4390- [id number] 9z2847-m 00:00:00 00:00:00 Visit iu83-0dpv t10-3uyh-0 -924a-d01 24a-d01f5f l7b8zi37r 4eb17f 2022-04-09 2022-04-09 Outpatient SFA [facility] 98568-3 Huang 08:02:18 08:02:18 0930 F Quirino 2022-04-09 2022-04-09 Outpatient v2x66479- [id number] c2 c43367-7 00:00:00 00:00:00 Visit 0k72-90x6 p18-55r0-9 -8750-031 750-0319bb 3roeo2836 qo2828 2022-03-29 2022-03-29 Outpatient [id number] 287603-b 00:00:00 00:00:00 Visit v756-63t6 701-46a9-a -w6a3-e60 0x3-m99929 0342p11x1 3d26f8 2022-03-16 2022-03-16 Telephone Ernst, 1.2.840.1 [id number] [id number] [facility] 00:00:00 00:00:[address] Dewi 3.430.2.7 Hospit a Arik .3.289577 l .8 2022-03-16 2022-03-16 [facility], 1.2.840.1 [id number] 2099 [id number] Methodi 00:00:00 00:00:[address] Dewi 3.430.2.7 Hospit a Arik .3.252140 l .8 2022-03-11 2022-03-11 [facility], 1.2.840.1 [id number] 2099 [id number] Methodi 00:00:00 00:00:[address] Dewi 3.430.2.7 Hospit a Arik .3.064188 l .8 2022-03-11 2022-03-11 [facility], 1.2.840.1 [id number] 2099 [id number] Methodi 00:00:00 00:00:[address] Dewi 3.430.2.7 Hospit a Arik .3.508370 l .8 2022-03-09 2022-03-09 Outpatient [id number]- [id number] d6 m17286-i 00:00:00 00:00:00 Visit b05j-803u 56a-450d-9 -3s5v-97c k8d-20d831 673l98346 n63035 2022-01-20 2022-01-20 Outpatient 1hm90fsk- [id number] 0f k68ole-7 00:00:00 00:00:00 Visit 8baf-464d baf-464d-a -y32f-901 91e-59956k 55cyuw62r aeb84a 2021-10-16 2021-10-16 Emergency X [facility] ERT [id number] Univers 16:39:00 22:23:00 BEATRIZ diaz [facility] 2021-10-16 2021-10-16 Emergency [facility] 1.2.306.237 [id number] Univers 16:39:00 22:23:00 Beatriz BARBER 350.1.13.10 ity of [facility] 4.2.7.2.686 [facility] [id number] [address] 2021-09-22 2021-09-22 Emergency X [facility] ERT [id number] Univers 09:56:00 12:05:00 JN ity [facility] 2021-09-22 2021-09-22 [facility] 1.2.738.068 [id number] Univers 09:56:00 12:05:00 Jn BARBER 350.1.13.10 i ty of [facility] 4.2.7.2.686 [facility] [id number] [address] 2021-08-20 2021-08-20 [facility] 1.2.840.114 [id number] Univers 00:00:00 00:00:00 [facility] 350.1.13.10 it y of [place] 4.2.7.2.686 Blake as DANIELITO?BLEA [id number] [address] MEDICAL OFFICE BUILDING 2021-07-31 2021-07-31 Outpatient Bebeto Valderrama HCATO DAYS Y000 [id number] [facility] 05:47:00 05:47:00 00 [facility] 2021-06-18 2021-06-18 Emergency [facility] [id number] Univers 04:31:00 08:25:00 FOZIA yangisaac [facility] 2021-06-18 2021-06-18 Emergency [facility] 1.2.432.687 [id number] Univers 04:31:00 08:25:00 Fozia BARBER 350.1.13.10 ity of [place] 4.2.7.2.686 [facility] [id number] [address] 2021-06-10 2021-06-10 Outpatient [facility] [id number] [place] 00:00:00 00:00:[address] 2021-06-10 2021-06-10 Travel 1.2.840.1 1.2.601.091 [id number] Methodi 00:00:00 00:00:[address] 3.430.2.7 0.2.7.3.698 Ho spita .3.786970 084.8 l .8 2021-06-08 2021-06-08 Telephone Ernst, 1.2.840.1 [id number] [id number] Methodi 00:00:00 00:00:[address] Dewi 3.430.2.7 Hospit a Arik .3.635603 l .8 2021-05-30 2021-05-30 Emergency [facility] [id number] Univers 15:49:00 19:42:00 MARY [facility] 2021-05-30 2021-05-30 Emergency [facility] 1.2.106.061 [id number] Univers 15:49:00 19:42:00 Mary BARBER 350.1.13.10 i ty of [place] 4.2.7.2.686 [facility] [id number] [facility] 084 [place] 2021-03-17 2021-03-17 Cam [facility] 1.2.904.867 [id number] Univers 00:00:00 00:00:00 Doron Barber 350.1.13.10 i ty of [place] 4.2.7.2.686 [id number] [place] dical [place] 220 [facility] 2021-02-27 2021-02-27 Outpatient R DONNA [facility] [id number] Univers 15:00:00 15:00:00 DORON isaac [facility] 2020-12-23 2020-12-23 Outpatient R ROBBIE [facility] [id number] Univers 16:00:00 16:00:00 FABIO [facility] 2020-12-10 2020-12-10 Outpatient R LISA [facility] [id number] Univers 09:00:00 09:53:04 BRYSON [facility] 2020-12-02 2020-12-04 Outpatient X YARIMA, [facility] [id number] Univers 19:53:00 17:23:00 FOZIA [facility] 2020-11-07 2020-11-07 Outpatient R DONNA [facility] [id number] Univers 13:30:00 13:30:00 DORON [facility] 2020-06-02 2020-06-02 Telephone [facility] 1.2.840.114 [id number] 00:00:00 00:00:00 Lily Barber 350.1.13.10 [place] 4.2.7.2.686 Professio [id number] [address] 2020-05-29 2020-05-29 [facility] [id number] [facility] 15:15:00 15:15:00 LESLEE [facility] 2020-05-27 2020-05-27 Office [facility] 1.2.040.353 [id number] 10:59:24 11:54:17 Visit Lily Barber 350.1.13.10 [place] 4.2.7.2.686 Professio [id number] [address] 2020-05-27 2020-05-27 Outpatient [facility] [id number] [facility] 10:45:00 10:45:00 LILY [facility] 2020-05-27 2020-05-27 Orders Doctor JACOBS 1.2.840.114 [id number] 00:00:00 00:00:00 Only Unassigned, BENITA 350.1.13.10 [place] [facility] 4.2.7.2.686 [id number] 009 2020-01-10 2020-01-10 Outpatient PRANAY WilsonCL LABO [id number] [facility] 18:46:00 18:46:00 Tomiko 24 [facility] 2020-01-04 2020-01-04 Outpatient PRANAY WilsonTO RADI [id number] [facility] 13:00:00 13:00:00 Tomiko 18 [facility] 2019-12-12 2019-12-12 Outpatient R CORINNE [facility] [id number] [facility] 16:30:00 16:30:00 STANISLAW [facility] 2019-12-07 2019-12-07 Outpatient Anupama DONNA, [facility] [id number] [facility] 09:00:00 09:00:00 DORON diaz [facility] 2019-11-22 2019-11-22 Outpatient ANTTRENT, [facility] [id number] [place] 00:00:00 00:00:00 SILVINA [address] 2019-11-06 2019-11-06 Outpatient ANTOSH, [facility] [id number] [place] 00:00:00 00:00:[address] 2019-11-01 2019-11-01 Outpatient ANTOSH, [facility] [id number] [place] 00:00:00 00:00:00 SILVINA [address] 2019-10-30 2019-10-30 Outpatient GALAN, [facility] [id number] [place] 00:00:00 00:00:00 ABHIJIT [address] 2019-10-18 2019-10-18 Outpatient ANTOSH, [facility] [id number] [place] 00:00:00 00:00:00 SILVINA [address] 2019-10-02 2019-10-02 Outpatient ANTOSH, [facility] [id number] [place] 00:00:00 00:00:00 SILVINA [address] 2019-10-01 2019-10-01 Outpatient ANTOSH, [facility] [id number] [place] 00:00:00 00:00:00 SILVINA [address] 2019-09-19 2019-09-19 Outpatient ANTOSH, [facility] [id number] [place] 00:00:00 00:00:00 SILVINA [address] 2019-09-11 2019-09-11 Outpatient Anupama USN, [facility] [id number] [facility] 10:30:00 10:30:00 STANISLAW diaz [facility] 2019-09-10 2019-09-10 Outpatient GALAN, [facility] [id number] [place] 00:00:00 00:00:00 ABHIJIT [address] 2019-09-10 2019-09-10 Outpatient ANTOSH, [facility] [id number] [place] 00:00:00 00:00:00 SILVINA [address] 2019-09-10 2019-09-10 Outpatient ERNST [facility] [id number] [place] 00:00:00 00:00:00 SILVINA abbott 2019-08-23 2019-08-23 Outpatient R ADRIENNE [facility] [id number] Univers 16:15:00 10:31:44 LILY [facility] 2019-08-15 2019-08-15 Outpatient R ADRIENNE [facility] [id number] Univers 09:15:00 09:44:35 LILY [facility] 2019-07-07 2019-07-07 Emergency X KENYA, [facility] ERT [id number] Univers 10:13:53 13:06:00 FOZIA [facility] 2010-08-05 2010-08-07 Inpatient OUTP Kit Lopez [facility] SURG [id number] [facility] 16:20:00 14:00:00 00 [facility] Results Test Description Test Time Test Comments Results Result Comments Source REAGENT STRIP/BLOOD GLUCOSE 2022-12-21 00:00:00 Test Item Value Reference Range Interpretation Comme nts BLOOD SUGAR (test code = 154121) 276 mg/dL 65-99 A Lab Interpretation (test code = 92978-1) Abnormal Andreea Corona - ExternalLIPID PANEL (01653)(TOTAL CHOLESTEROL, TRIGLYCERIDES, HDL)2022-11-03 14:32:57 Test Item Value Reference Range Interpretation Comments CHOL (test code = 236 mg/dL 120-200 H 3079151075) HDL (test code = 32 mg/dL >=50 L 8375082604) HDLC RATIO (test code = 7.4 <=4.5 H 2385637885) TRIG (test code = 667 mg/dL 30-170 H 4046686647) LDL CHOL (test code = Unable to calculate 06312-3) LDL due to elev ated triglyceride le jossy greater than 40 0 mg/dL. VLDL (test code = 133 mg/dL 5-60 H 3270263810) Lab Interpretation Abnormal (test code = 90878-9) [facility] (NA, K, CL, CO2, GLUCOSE, BUN, CREATININE, CA)2022-11-03 14:18:35 Test Item Value Reference Range Interpretation Comments NA (test code = 139 mmol/L 135-145 7848458587) K (test code = 4.4 mmol/L 3.5-5.0 3824093655) CL (test code = 105 mmol/L 98-108 2833973959) CO2 TOTAL (test code = 23 mmol/L 23-31 0410854269) AGAP (test code = 11 2-16 2589959934) BUN (test code = 12 mg/dL 7-23 0604364896) GLUCOSE (test code = 279 mg/dL 70-110 H 5850123106) CREATININE (test code = 0.59 mg/dL 0.50-1.04 8995318960) CALCIUM (test code = 9.8 mg/dL 8.6-10.6 0967305584) eGFR (test code = 110.7 mL/min/1.73m2 9173613778) CALVIN (test code = CALVIN) Association of [...] tests). Lab Interpretation Abnormal (test code = 94099-2) [facility] FUN[facility] PANEL (29365) (ALB,T.PRO,BILI T,BU/BC,ALT,AST,ALK PHOS)2022-11-03 14:18:35 Test Item Value Reference Range Interpretation Comments TOTAL BILI (test code = 8180017123) 0.8 mg/dL 0.1-1.1 BILI UNCON (test code = 6076391450) 0.6 mg/dL 0.1-1.1 BILI CONJ (test code = 3156377636) 0.0 mg/dL 0.0-0.3 T PROTEIN (test code = 4474519569) 8.5 g/dL 6.3-8.2 H ALBUMIN (test code = 0918603409) 4.9 g/dL 3.5-5.0 ALK PHOS (test code = 0910125936) 48 U/L 34-122 ALTv (test code = 1742-6) 60 U/L 5-35 H AST(SGOT) (test code = 8361299390) 56 U/L 13-40 H Lab Interpretation (test code = Abnormal 06323-1) [facility]2023-04-26 14:18:15 Test Item Value Reference Range Interpretation Comments LIPASE (test code = 7659886745) 240 U/L 0-220 H Lab Interpretation (test code = Abnormal 73378-9) [facility] WITH UQBN0329-57-24 14:01:29 Test Item Value Reference Range Interpretation Comments WBC (test code = 6.73 See_Comment [Automated 3319-2) message] The sy stem which generated this result transmitted reference range : 4.30 - 11.10 10*3/?L. The reference range was not used to interpret this result as normal/abnormal . RBC (test code = 4.90 See_Comment [Automated 096-8) message] The sy stem which generated this [...] RDW-SD (test code = 39.7 fL 39.0-49.9 46297-3) RDW-CV (test code = 13.0 % 12.0-15.5 788-0) PLT (test code = 252 See_Comment [Automated 777-3) message] The sy stem which generated this result transmitted reference range : 166 - 358 10*3/ ?L. The reference r doretha was not used to interpret this result as normal/abnormal . MPV (test code = 9.4 fL 9.5-12.9 L 10007-5) NRBC/100 WBC (test 0.0 See_Comment [Automat ed code = 3047624378) message] The system which generated this result transmitted reference range : 0.0 - 10.0 /100 WBCs. The refer ence range was not u sed to interpret th is result as normal/abnormal . NRBC x10^3 (test code See_Comment [Auto mated = 6055087746) message] The s ystem which generated this result transmitted reference range : 10*3/?L. The reference range was not used to interpret this result as normal/abnormal . GRAN MAT (NEUT) % 54.5 % (test code = 770-8) IMM GRAN % (test code 0.70 % = 0929419832) LYMPH % (test code = 34.3 % 736-9) MONO % (test code = 7.4 % 5905-5) EOS % (test code = 2.1 % 713-8) BASO % (test code = 1.0 % 706-2) GRAN MAT x10^3(ANC) 3.66 10*3/uL 1.88-7.09 (test code = 5823548887) IMM GRAN x10^3 (test 0.05 10*3/uL 0.00-0.06 code = 4634835122) LYMPH x10^3 (test code 2.31 10*3/uL 1.32-3.29 = 731-0) MONO x10^3 (test code 0.50 10*3/uL 0.33-0.92 = 742-7) EOS x10^3 (test code = 0.14 10*3/uL 0.03-0.39 711-2) BASO x10^3 (test code 0.07 10*3/uL 0.01-0.07 = 704-7) Lab Interpretation Abnormal (test code = 35994-8) [facility] STRIP/BLOOD TOIKNAM8570-97-01 00:00:00 Test Item Value Reference Range Interpretation Comments BLOOD SUGAR (test code = 047916) 260 mg/dL 65-99 A Lab Interpretation (test code = Abnormal 65725-0) [facility]2022-08-30 14:54:37 Test Item Value Reference Range Interpretation Comments POCT GLU (test code = 3129749032) 123 mg/dL 70-110 H Lab Interpretation (test code = Abnormal 60605-6) [facility] GLUCOSE (AUTOMATED)2022-08-30 13:07:24 Test Item Value Reference Range Interpretation Comments POCT GLU (test code = 3995537028) 130 mg/dL 70-110 H Lab Interpretation (test code = Abnormal 54122-8) [facility] GLUCOSE (AUTOMATED)2022-08-30 12:05:08 Test Item Value Reference Range Interpretation Comments POCT GLU (test code = 3220230269) 136 mg/dL 70-110 H Lab Interpretation (test code = Abnormal 56448-1) [facility] GLUCOSE (AUTOMATED)2022-08-30 11:08:07 Test Item Value Reference Range Interpretation Comments POCT GLU (test code = 5260047515) 115 mg/dL 70-110 H Lab Interpretation (test code = Abnormal 78003-1) [facility] GLUCOSE (AUTOMATED)2022-08-30 10:21:27 Test Item Value Reference Range Interpretation Comments POCT GLU (test code = 0700613216) 111 mg/dL 70-110 H Lab Interpretation (test code = Abnormal 90920-5) [facility] GLUCOSE (AUTOMATED)2022-08-30 09:12:24 Test Item Value Reference Range Interpretation Comments POCT GLU (test code = 2274007378) 121 mg/dL 70-110 H Lab Interpretation (test code = Abnormal 17698-0) [facility])2022-08-30 08:11:01 Test Item Value Reference Range Interpretation Comments POCT GLU (test code = 2184965939) 137 mg/dL 70-110 H Lab Interpretation (test code = Abnormal 08864-3) [facility] GLUCOSE (AUTOMATED)2022-08-30 07:47:30 Test Item Value Reference Range Interpretation Comments POCT GLU (test code = 9171658958) 134 mg/dL 70-110 H Lab Interpretation (test code = Abnormal 78426-9) [facility] GLUCOSE (AUTOMATED)2022-08-30 06:32:02 Test Item Value Reference Range Interpretation Comments POCT GLU (test code = 5999258174) 128 mg/dL 70-110 H Lab Interpretation (test code = Abnormal 06672-2) [facility] GLUCOSE (AUTOMATED)2022-08-30 05:05:59 Test Item Value Reference Range Interpretation Comments POCT GLU (test code = 8222060566) 157 mg/dL 70-110 H Lab Interpretation (test code = Abnormal 17380-7) [facility] GLUCOSE (AUTOMATED)2022-08-30 04:14:51 Test Item Value Reference Range Interpretation Comments POCT GLU (test code = 6576492878) 181 mg/dL 70-110 H Lab Interpretation (test code = Abnormal 98134-7) [facility] GLUCOSE (AUTOMATED)2022-08-30 03:07:48 Test Item Value Reference Range Interpretation Comments POCT GLU (test code = 3586617651) 150 mg/dL 70-110 H Lab Interpretation (test code = Abnormal 06407-9) [facility] GLUCOSE (AUTOMATED)2022-08-30 02:26:22 Test Item Value Reference Range Interpretation Comments POCT GLU (test code = 1419258534) 118 mg/dL 70-110 H Lab Interpretation (test code = Abnormal 99205-1) [facility] GLUCOSE (AUTOMATED)2022-08-30 01:05:37 Test Item Value Reference Range Interpretation Comments POCT GLU (test code = 3620816693) 150 mg/dL 70-110 H Lab Interpretation (test code = Abnormal 18700-4) [facility] GLUCOSE (AUTOMATED)2022-08-30 00:05:56 Test Item Value Reference Range Interpretation Comments POCT GLU (test code = 5549790028) 206 mg/dL 70-110 H Lab Interpretation (test code = Abnormal 74606-7) [facility] GLUCOSE (AUTOMATED)2022-08-29 23:02:06 Test Item Value Reference Range Interpretation Comments POCT GLU (test code = 1550578926) 172 mg/dL 70-110 H Lab Interpretation (test code = Abnormal 61815-3) [facility] GLUCOSE (AUTOMATED)2022-08-29 22:07:12 Test Item Value Reference Range Interpretation Comments POCT GLU (test code = 8194403242) 110 mg/dL 70-110 Lab Interpretation (test code = Normal 07090-9) [facility] GLUCOSE (AUTOMATED)2022-08-29 21:14:06 Test Item Value Reference Range Interpretation Comments POCT GLU (test code = 4543245981) 118 mg/dL 70-110 H Lab Interpretation (test code = Abnormal 08885-5) [facility] GLUCOSE (AUTOMATED)2022-08-29 20:09:27 Test Item Value Reference Range Interpretation Comments POCT GLU (test code = 4695828361) 104 mg/dL 70-110 Lab Interpretation (test code = Normal 03140-3) [facility] GLUCOSE (AUTOMATED)2022-08-29 19:11:06 Test Item Value Reference Range Interpretation Comments POCT GLU (test code = 8582257838) 101 mg/dL 70-110 Lab Interpretation (test code = Normal 88677-6) [facility] GLUCOSE (AUTOMATED)2022-08-29 18:15:25 Test Item Value Reference Range Interpretation Comments POCT GLU (test code = 8114388830) 125 mg/dL 70-110 H Lab Interpretation (test code = Abnormal 18509-1) [facility] GLUCOSE (AUTOMATED)2022-08-29 17:11:12 Test Item Value Reference Range Interpretation Comments POCT GLU (test code = 8436440933) 116 mg/dL 70-110 H Lab Interpretation (test code = Abnormal 83021-7) [facility] GLUCOSE (AUTOMATED)2022-08-29 16:16:36 Test Item Value Reference Range Interpretation Comments POCT GLU (test code = 3217256931) 139 mg/dL 70-110 H Lab Interpretation (test code = Abnormal 34741-1) [facility] GLUCOSE (AUTOMATED)2022-08-29 15:08:34 Test Item Value Reference Range Interpretation Comments POCT GLU (test code = 2270445509) 159 mg/dL 70-110 H Lab Interpretation (test code = Abnormal 51774-2) [facility] GLUCOSE (AUTOMATED)2022-08-29 14:18:05 Test Item Value Reference Range Interpretation Comments POCT GLU (test code = 8585702578) 147 mg/dL 70-110 H Lab Interpretation (test code = Abnormal 52473-0) [facility] GLUCOSE (AUTOMATED)2022-08-29 13:22:04 Test Item Value Reference Range Interpretation Comments POCT GLU (test code = 3627160944) 151 mg/dL 70-110 H Lab Interpretation (test code = Abnormal 64765-5) [facility] GLUCOSE (AUTOMATED)2022-08-29 12:11:27 Test Item Value Reference Range Interpretation Comments POCT GLU (test code = 2612359457) 163 mg/dL 70-110 H Lab Interpretation (test code = Abnormal 24928-4) [facility] GLUCOSE (AUTOMATED)2022-08-29 10:58:04 Test Item Value Reference Range Interpretation Comments POCT GLU (test code = 9075676790) 162 mg/dL 70-110 H Lab Interpretation (test code = Abnormal 55333-8) [facility] GLUCOSE (AUTOMATED)2022-08-29 10:03:25 Test Item Value Reference Range Interpretation Comments POCT GLU (test code = [id number]) 184 mg/dL 70-110 H Lab Interpretation (test code = Abnormal 27145-2) [facility] GLUCOSE (AUTOMATED)2022-08-29 09:10:58 Test Item Value Reference Range Interpretation Comments POCT GLU (test code = [id number]) 176 mg/dL 70-110 H Lab Interpretation (test code = Abnormal 53614-4) [facility] GLUCOSE (AUTOMATED)2022-08-29 08:04:18 Test Item Value Reference Range Interpretation Comments POCT GLU (test code = [id number]) 158 mg/dL 70-110 H Lab Interpretation (test code = Abnormal 26917-1) [facility] GLUCOSE (AUTOMATED)2022-08-29 07:09:28 Test Item Value Reference Range Interpretation Comments POCT GLU (test code = [id number]) 137 mg/dL 70-110 H Lab Interpretation (test code = Abnormal 94742-4) [facility] GLUCOSE (AUTOMATED)2022-08-29 06:07:41 Test Item Value Reference Range Interpretation Comments POCT GLU (test code = [id number]) 136 mg/dL 70-110 H Lab Interpretation (test code = Abnormal 27927-9) [facility] GLUCOSE (AUTOMATED)2022-08-29 05:12:21 Test Item Value Reference Range Interpretation Comments POCT GLU (test code = 3305553120) 151 mg/dL 70-110 H Lab Interpretation (test code = Abnormal 81003-1) [facility] GLUCOSE (AUTOMATED)2022-08-29 04:11:30 Test Item Value Reference Range Interpretation Comments POCT GLU (test code = [id number]) 166 mg/dL 70-110 H Lab Interpretation (test code = Abnormal 49537-3) [facility] GLUCOSE (AUTOMATED)2022-08-29 03:21:25 Test Item Value Reference Range Interpretation Comments POCT GLU (test code = 4055579146) 185 mg/dL 70-110 H Lab Interpretation (test code = Abnormal 17314-6) [facility] GLUCOSE (AUTOMATED)2022-08-29 02:13:24 Test Item Value Reference Range Interpretation Comments POCT GLU (test code = [id number]) 139 mg/dL 70-110 H Lab Interpretation (test code = Abnormal 48438-5) [facility] GLUCOSE (AUTOMATED)2022-08-29 01:03:43 Test Item Value Reference Range Interpretation Comments POCT GLU (test code = 1086149519) 144 mg/dL 70-110 H Lab Interpretation (test code = Abnormal 59550-8) [facility] GLUCOSE (AUTOMATED)2022-08-29 00:27:52 Test Item Value Reference Range Interpretation Comments POCT GLU (test code = 3905983883) 193 mg/dL 70-110 H Lab Interpretation (test code = Abnormal 09676-4) [facility] 23:18:19 Test Item Value Reference Range Interpretation Comments POCT GLU (test code = 3278568974) 162 mg/dL 70-110 H Lab Interpretation (test code = Abnormal 22662-1) [facility]2022-08-28 22:25:29 Test Item Value Reference Range Interpretation Comments POCT GLU (test code = 0080576094) 163 mg/dL 70-110 H Lab Interpretation (test code = Abnormal 12080-9) [facility] GLUCOSE (AUTOMATED)2022-08-28 21:06:41 Test Item Value Reference Range Interpretation Comments POCT GLU (test code = 8176709914) 179 mg/dL 70-110 H Lab Interpretation (test code = Abnormal 71419-8) [facility] GLUCOSE (AUTOMATED)2022-08-28 20:08:24 Test Item Value Reference Range Interpretation Comments POCT GLU (test code = 1671186398) 159 mg/dL 70-110 H Lab Interpretation (test code = Abnormal 67802-5) [facility]-28 19:08:09 Test Item Value Reference Range Interpretation Comments POCT GLU (test code = 0841913824) 129 mg/dL 70-110 H Lab Interpretation (test code = Abnormal 25442-5) [facility] GLUCOSE (AUTOMATED)2022-08-28 18:16:18 Test Item Value Reference Range Interpretation Comments POCT GLU (test code = 0636000355) 106 mg/dL 70-110 Lab Interpretation (test code = Normal 46968-2) [facility]2022-08-28 17:06:55 Test Item Value Reference Range Interpretation Comments POCT GLU (test code = 0523319049) 136 mg/dL 70-110 H Lab Interpretation (test code = Abnormal 80843-3) [facility]22-[facility]-28 16:05:13 Test Item Value Reference Range Interpretation Comments POCT GLU (test code = 0703826371) 141 mg/dL 70-110 H Lab Interpretation (test code = Abnormal 13086-9) [facility] GLUCOSE (AUTOMATED)2022-08-28 15:04:57 Test Item Value Reference Range Interpretation Comments POCT GLU (test code = 0874409113) 168 mg/dL 70-110 H Lab Interpretation (test code = Abnormal 05821-0) [facility] GLUCOSE (AUTOMATED)2022-08-28 14:10:31 Test Item Value Reference Range Interpretation Comments POCT GLU (test code = 5462369668) 163 mg/dL 70-110 H Lab Interpretation (test code = Abnormal 65283-4) [facility] GLUCOSE (AUTOMATED)2022-08-28 13:07:27 Test Item Value Reference Range Interpretation Comments POCT GLU (test code = 1689407542) 133 mg/dL 70-110 H Lab Interpretation (test code = Abnormal 90901-1) [facility] GLUCOSE (AUTOMATED)2022-08-28 12:32:10 Test Item Value Reference Range Interpretation Comments POCT GLU (test code = 8691328091) 150 mg/dL 70-110 H Lab Interpretation (test code = Abnormal 55200-5) [facility] 12:14:56 Test Item Value Reference Range Interpretation Comments TRIG (test code = 6276845923) 1527 mg/dL 30-170 H Lab Interpretation (test code = Abnormal 60203-8) [facility] (NA, K, CL, CO2, GLUCOSE, BUN, CREATININE, CA)2022-08-28 12:02:28 Test Item Value Reference Range Interpretation Comments NA (test code = 137 mmol/L 135-145 4902302284) K (test code = 4.0 mmol/L 3.5-5.0 4446875814) CL (test code = 112 mmol/L 98-108 H 5436921903) CO2 TOTAL (test code = 19 mmol/L 23-31 L 9739634051) AGAP (test code = 6 2-16 8122091656) BUN (test code = 9 mg/dL 7-23 6443234832) GLUCOSE (test code = 157 mg/dL 70-110 H 1898651026) CREATININE (test code = 0.53 mg/dL 0.50-1.04 2579706001) CALCIUM (test code = 7.2 mg/dL 8.6-10.6 L 0934574141) eGFR (test code = 125.3 mL/min/1.73m2 1022971139) CALVIN (test code = CALVIN) Association of [...] tests). Lab Interpretation Abnormal (test code = 50457-8) [facility] GLUCOSE (AUTOMATED)2022-08-28 11:34:27 Test Item Value Reference Range Interpretation Comments POCT GLU (test code = 9041688226) 139 mg/dL 70-110 H Lab Interpretation (test code = Abnormal 15299-3) [facility] GLUCOSE (AUTOMATED)2022-08-28 10:08:58 Test Item Value Reference Range Interpretation Comments POCT GLU (test code = 8616609847) 159 mg/dL 70-110 H Lab Interpretation (test code = Abnormal 84271-4) [facility] GLUCOSE (AUTOMATED)2022-08-28 09:03:44 Test Item Value Reference Range Interpretation Comments POCT GLU (test code = 7293786628) 138 mg/dL 70-110 H Lab Interpretation (test code = Abnormal 41765-3) [facility] GLUCOSE (AUTOMATED)2022-08-28 08:09:23 Test Item Value Reference Range Interpretation Comments POCT GLU (test code = 6640837568) 134 mg/dL 70-110 H Lab Interpretation (test code = Abnormal 72991-2) [facility] GLUCOSE (AUTOMATED)2022-08-28 06:02:02 Test Item Value Reference Range Interpretation Comments POCT GLU (test code = 0747369127) 159 mg/dL 70-110 H Lab Interpretation (test code = Abnormal 50790-3) [facility] GLUCOSE (AUTOMATED)2022-08-28 05:07:18 Test Item Value Reference Range Interpretation Comments POCT GLU (test code = 3660658307) 132 mg/dL 70-110 H Lab Interpretation (test code = Abnormal 67929-1) [facility] GLUCOSE (AUTOMATED)2022-08-28 04:03:46 Test Item Value Reference Range Interpretation Comments POCT GLU (test code = 3651839098) 132 mg/dL 70-110 H Lab Interpretation (test code = Abnormal 85036-2) [facility] GLUCOSE (AUTOMATED)2022-08-28 03:06:02 Test Item Value Reference Range Interpretation Comments POCT GLU (test code = 6805986487) 161 mg/dL 70-110 H Lab Interpretation (test code = Abnormal 69815-1) [facility] GLUCOSE (AUTOMATED)2022-08-28 02:11:59 Test Item Value Reference Range Interpretation Comments POCT GLU (test code = 8507772554) 152 mg/dL 70-110 H Lab Interpretation (test code = Abnormal 72864-7) [facility] GLUCOSE (AUTOMATED)2022-08-28 01:13:55 Test Item Value Reference Range Interpretation Comments POCT GLU (test code = 1489063994) 154 mg/dL 70-110 H Lab Interpretation (test code = Abnormal 64164-1) [facility] GLUCOSE (AUTOMATED)2022-08-28 00:04:53 Test Item Value Reference Range Interpretation Comments POCT GLU (test code = 4863373158) 171 mg/dL 70-110 H Lab Interpretation (test code = Abnormal 08909-7) [facility]2022-08-27 23:36:39 Test Item Value Reference Range Interpretation Comments POCT GLU (test code = 7017531387) 192 mg/dL 70-110 H Lab Interpretation (test code = Abnormal 75763-2) [facility]2022-08-27 22:12:56 Test Item Value Reference Range Interpretation Comments POCT GLU (test code = 8246923201) 209 mg/dL 70-110 H Lab Interpretation (test code = Abnormal 48772-7) [facility] GLUCOSE (AUTOMATED)2022-08-27 21:04:44 Test Item Value Reference Range Interpretation Comments POCT GLU (test code = 9714271041) 173 mg/dL 70-110 H Lab Interpretation (test code = Abnormal 76267-0) [facility] GLUCOSE (AUTOMATED)2022-08-27 20:46:25 Test Item Value Reference Range Interpretation Comments POCT GLU (test code = 7621079017) 104 mg/dL 70-110 Lab Interpretation (test code = Normal 37318-5) [facility]2022-08-27 19:02:38 Test Item Value Reference Range Interpretation Comments POCT GLU (test code = 0368909835) 156 mg/dL 70-110 H Lab Interpretation (test code = Abnormal 64835-9) [facility] 18:04:27 Test Item Value Reference Range Interpretation Comments POCT GLU (test code = 5374780000) 146 mg/dL 70-110 H Lab Interpretation (test code = Abnormal 08292-1) [facility]2022-08-27 17:01:16 Test Item Value Reference Range Interpretation Comments POCT GLU (test code = 7724459228) 152 mg/dL 70-110 H Lab Interpretation (test code = Abnormal 00338-3) [facility]2022-08-27 16:14:54 Test Item Value Reference Range Interpretation Comments POCT GLU (test code = 0977227585) 173 mg/dL 70-110 H Lab Interpretation (test code = Abnormal 66046-9) [facility] 15:15:33 Test Item Value Reference Range Interpretation Comments POCT GLU (test code = 1806909114) 128 mg/dL 70-110 H Lab Interpretation (test code = Abnormal 97923-9) [facility] GLUCOSE (AUTOMATED)2022-08-27 14:21:55 Test Item Value Reference Range Interpretation Comments POCT GLU (test code = 0083940160) 128 mg/dL 70-110 H Lab Interpretation (test code = Abnormal 86246-0) [facility] GLUCOSE (AUTOMATED)2022-08-27 13:24:52 Test Item Value Reference Range Interpretation Comments POCT GLU (test code = 5422045030) 140 mg/dL 70-110 H Lab Interpretation (test code = Abnormal 33051-2) [facility] GLUCOSE (AUTOMATED)2022-08-27 12:09:47 Test Item Value Reference Range Interpretation Comments POCT GLU (test code = 0090645715) 167 mg/dL 70-110 H Lab Interpretation (test code = Abnormal 71469-1) [facility] GLUCOSE (AUTOMATED)2022-08-27 11:09:03 Test Item Value Reference Range Interpretation Comments POCT GLU (test code = 0267825991) 148 mg/dL 70-110 H Lab Interpretation (test code = Abnormal 55778-0) [facility] GLUCOSE (AUTOMATED)2022-08-27 10:16:49 Test Item Value Reference Range Interpretation Comments POCT GLU (test code = 7908835688) 129 mg/dL 70-110 H Lab Interpretation (test code = Abnormal 75240-0) [facility] GLUCOSE (AUTOMATED)2022-08-27 09:21:11 Test Item Value Reference Range Interpretation Comments POCT GLU (test code = 0435056389) 145 mg/dL 70-110 H Lab Interpretation (test code = Abnormal 47225-9) [facility] GLUCOSE (AUTOMATED)2022-08-27 07:01:10 Test Item Value Reference Range Interpretation Comments POCT GLU (test code = 7960820303) 126 mg/dL 70-110 H Lab Interpretation (test code = Abnormal 18481-0) [facility] GLUCOSE (AUTOMATED)2022-08-27 06:14:53 Test Item Value Reference Range Interpretation Comments POCT GLU (test code = 1563716428) 154 mg/dL 70-110 H Lab Interpretation (test code = Abnormal 59280-1) [facility] 05:41:57 Test Item Value Reference Range Interpretation Comments LIPASE (test code = 2945821783) 197 U/L 0-220 Lab Interpretation (test code = Normal 18664-2) [facility] GLUCOSE (AUTOMATED)2022-08-27 05:13:21 Test Item Value Reference Range Interpretation Comments POCT GLU (test code = 6388321755) 163 mg/dL 70-110 H Lab Interpretation (test code = Abnormal 99872-1) [facility]wayLOW-DENSITY LIPOPROTEIN, [id number] 04:16:58 Test Item Value Reference Range Interpretation Comments dLDL Chol (test code = 75065-5) 63 mg/dL <=130 Lab Interpretation (test code = Normal 52564-2) [facility]wayOSMOLALITY, SERUM OR [id number] 04:12:04 Test Item Value Reference Range Interpretation Comments OSMOLALITY (test code = 319 See_Comment H [Au tomated message] 2692-2) The system [employer] generated this result transmitted ref erence range: 278 - 30 5 mOsm/kg. The reference range was not used to int erpret this result as normal/abnormal . Lab Interpretation (test Abnormal code = 77034-5) [facility] GLUCOSE (AUTOMATED)2022-08-27 03:17:19 Test Item Value Reference Range Interpretation Comments POCT GLU (test code = 8582950737) 244 mg/dL 70-110 H Lab Interpretation (test code = Abnormal 68213-2) [facility] Met[facility] (NA, K, CL, CO2, GLUCOSE, BUN, CREATININE, CA)2022-08-27 02:55:11 Test Item Value Reference Range Interpretation Comments NA (test code = 134 mmol/L 135-145 L 8867841367) K (test code = 4.3 mmol/L 3.5-5.0 3274644374) CL (test code = 103 mmol/L 98-108 7852088057) CO2 TOTAL (test code = 19 mmol/L 23-31 L 2276506567) AGAP (test code = 12 2-16 1559786938) BUN (test code = 25 mg/dL 7-23 H 8973348971) GLUCOSE (test code = 277 mg/dL 70-110 H 0428265139) CREATININE (test code = 0.77 mg/dL 0.50-1.04 9822179629) CALCIUM (test code = 8.2 mg/dL 8.6-10.6 L 1404901633) eGFR (test code = 81.4 mL/min/1.73m2 9269028152) CALVIN (test code = CALVIN) Association of [...] tests). Lab Interpretation Abnormal (test code = 45299-3) [facility] GLUCOSE (AUTOMATED)2022-08-27 02:03:06 Test Item Value Reference Range Interpretation Comments POCT GLU (test code = 8423433138) 322 mg/dL 70-110 H Lab Interpretation (test code = Abnormal 37862-9) [facility] GLUCOSE (AUTOMATED)2022-08-27 01:25:59 Test Item Value Reference Range Interpretation Comments POCT GLU (test code = 5250639933) 324 mg/dL 70-110 H Lab Interpretation (test code = Abnormal 34055-4) [facility] GLUCOSE (AUTOMATED)2022-08-27 00:32:23 Test Item Value Reference Range Interpretation Comments POCT GLU (test code = 0469080020) 372 mg/dL 70-110 H Lab Interpretation (test code = Abnormal 66494-4) [facility] GLUCOSE (AUTOMATED)2022-08-27 00:00:02 Test Item Value Reference Range Interpretation Comments POCT GLU (test code = 8027676724) 382 mg/dL 70-110 H Lab Interpretation (test code = Abnormal 44308-4) [facility] GLUCOSE (AUTOMATED)2022-08-26 23:10:50 Test Item Value Reference Range Interpretation Comments POCT GLU (test code = 6396674661) 409 mg/dL 70-110 H Lab Interpretation (test code = Abnormal 69827-5) [facility]wayLIPID PANEL (97836)(TOTAL CHOLESTEROL, TRIGLYCERIDES, HDL)2022-08-26 22:34:41 Test Item Value Reference Range Interpretation Comments CHOL (test code = 381 mg/dL 120-200 H 6170907584) HDL (test code = 25 mg/dL >=50 L 4390456298) HDLC RATIO (test code = 15.2 <=4.5 H 1621219687) TRIG (test code = 30-170 H 3336656848) LDL CHOL (test code = Unable to calculate 34277-7) LDL due to elev ated triglyceride le jossy greater than 40 0 mg/dL. VLDL (test code = Unable to calculate 4592994848) VLDL due to [place] vated triglyceride le jossy greater than 71 0 mg/dL. Lab Interpretation Abnormal (test code = 39069-4) [facility] GLUCOSE (AUTOMATED)2022-08-26 22:11:52 Test Item Value Reference Range Interpretation Comments POCT GLU (test code = 3301713071) 375 mg/dL 70-110 H Lab Interpretation (test code = Abnormal 56672-6) [facility]wayCOMP[facility] METABOLIC PANEL (73197)2022-08-26 22:06:45 Test Item Value Reference Range Interpretation Comments NA (test code = 131 mmol/L 135-145 L 7210826674) K (test code = 5.4 mmol/L 3.5-5.0 H 7582964746) CL (test code = 95 mmol/L 98-108 L 4776952579) CO2 TOTAL (test code = 9 mmol/L 23-31 L 7340168099) AGAP (test code = 27 2-16 H 3331163039) BUN (test code = 29 mg/dL 7-23 H 7611514971) GLUCOSE (test code = 444 mg/dL 70-110 H 4097548539) CREATININE (test code = 1.01 mg/dL 0.50-1.04 3582931508) TOTAL BILI (test code = 0.9 mg/dL 0.1-1.5 7437008554) CALCIUM (test code = 9.2 mg/dL 8.6-10.6 6287046848) T PROTEIN (test code = 9.4 g/dL 6.3-8.2 H 7806227519) ALBUMIN (test code = 4.8 g/dL 3.5-5.0 1132902903) ALK PHOS (test code = 79 U/L 34-122 3192618622) ALTv (test code = 43 U/L 5-35 H 1742-6) AST(SGOT) (test code = 42 U/L 13-40 H 4661142689) eGFR (test code = 59.5 mL/min/1.73m2 9095849535) CALVIN (test code = CALVIN) Association of [...] tests). Lab Interpretation Abnormal (test code = 35140-1) [facility]MAG[facility]2023-02-16 22:02:31 Test Item Value Reference Range Interpretation Comments MAGNESIUM (test code = 6895015113) 1.7 mg/dL 1.7-2.4 Lab Interpretation (test code = Normal 95725-1) [facility] WITH [id number] 21:22:43 Test Item Value Reference Range Interpretation Comments WBC (test code = 9.75 See_Comment [Automated 6681-2) message] The sy stem which generated this result transmitted reference range : 4.30 - 11.10 10*3/?L. The reference range was not used to interpret this result as normal/abnormal . RBC (test code = 4.71 See_Comment [Automated 234-8) message] The sy stem which generated this [...] RDW-SD (test code = 43.3 fL 39.0-49.9 81755-7) RDW-CV (test code = 14.4 % 12.0-15.5 788-0) PLT (test code = 371 See_Comment H [Automated 777-3) message] The sy stem which generated this result transmitted reference range : 166 - 358 10*3/ ?L. The reference r doretha was not used to interpret this result as normal/abnormal . MPV (test code = 10.2 fL 9.5-12.9 82231-7) NRBC/100 WBC (test 0.0 See_Comment [Automat ed code = 5707714791) message] The system which generated this result transmitted reference range : 0.0 - 10.0 /100 WBCs. The refer ence range was not u sed to interpret th is result as normal/abnormal . NRBC x10^3 (test code See_Comment [Auto mated = 0272122284) message] The s ystem which generated this result transmitted reference range : 10*3/?L. The reference range was not used to interpret this result as normal/abnormal . GRAN MAT (NEUT) % 52.7 % (test code = 770-8) IMM GRAN % (test code 1.10 % = 6843188282) LYMPH % (test code = 36.6 % 736-9) MONO % (test code = 6.5 % 5905-5) EOS % (test code = 1.6 % 713-8) BASO % (test code = 1.5 % 706-2) GRAN MAT x10^3(ANC) 5.13 10*3/uL 1.88-7.09 (test code = 2076226590) IMM GRAN x10^3 (test 0.11 10*3/uL 0.00-0.06 H code = 9535947375) LYMPH x10^3 (test code 3.57 10*3/uL 1.32-3.29 H = 731-0) MONO x10^3 (test code 0.63 10*3/uL 0.33-0.92 = 742-7) EOS x10^3 (test code = 0.16 10*3/uL 0.03-0.39 711-2) BASO x10^3 (test code 0.15 10*3/uL 0.01-0.07 H = 704-7) Lab Interpretation Abnormal (test code = 63549-0) [facility]2022-08-26 20:35:54 Test Item Value Reference Range Interpretation Comments POCT GLU (test code = 0042523806) 400 mg/dL 70-110 H Lab Interpretation (test code = Abnormal 67932-5) [facility] Metabolic Panel (Na, K, Cl, CO2, Glucose, BUN, Creatinine, Ca)2022-06-22 03:47:00 Test Item Value Reference Range Interpretation Comments NA (test code = 136 mmol/L 135-145 8309293341) K (test code = 3.8 mmol/L 3.5-5.0 0428361039) CL (test code = 97 mmol/L 98-108 L 1853671225) CO2 TOTAL (test code = 24 mmol/L 23-31 0961348797) AGAP (test code = 2-16 2538643452) BUN (test code = 34 mg/dL 7-23 H 3568195231) GLUCOSE (test code = 270 mg/dL 70-110 H 8544913496) CREATININE (test code = 0.93 mg/dL 0.50-1.04 4123112527) CALCIUM (test code = 10.6 mg/dL 8.6-10.6 4721988008) eGFR (test code = mL/min/1.73m2 5051101834) CALVIN (test code = CALVIN) Association of [...] tests). Lab Interpretation Abnormal (test code = 35414-5) [facility] GLUCOSE (AUTOMATED)2022-06-22 03:46:00 Test Item Value Reference Range Interpretation Comments POCT GLU (test code = 2466353894) 256 mg/dL 70-110 H Lab Interpretation (test code = Abnormal 20632-6) [facility]wayGlycosylated Hemoglobin (A1C)2022-06-22 03:08:04 Test Item Value Reference Range Interpretation Comments HGB A1C (test code = 12.0 % 4.0-5.7 H 4548-4) CALVIN (test code = CALVIN) Reference RangesNormal: <5.7%Prediabetes: 5.7 - 6.4%Diabetes: > 6.5% Lab Interpretation (test Abnormal code = 31951-2) [facility] GLUCOSE (AUTOMATED)2022-06-22 02:44:02 Test Item Value Reference Range Interpretation Comments POCT GLU (test code = 9289007176) 265 mg/dL 70-110 H Lab Interpretation (test code = Abnormal 03601-3) [facility] GLUCOSE(AGE >30DAYS)2022-06-22 02:39:00 Test Item Value Reference Range Interpretation Comments POCT Glu (age>30days) (test code = 265 mg/dL 70-110 A 3342) Lab Interpretation (test code = Abnormal 81014-3) [facility] LakewayMagnesium [id number] 02:25:21 Test Item Value Reference Range Interpretation Comments MAGNESIUM (test code = 2869834513) 1.5 mg/dL 1.7-2.4 L Lab Interpretation (test code = Abnormal 50708-2) [facility]wayPhosphorus [id number] 02:25:01 Test Item Value Reference Range Interpretation Comments PHOSPHORUS (test code = 7468806244) 5.7 mg/dL 2.5-5.0 H Lab Interpretation (test code = Abnormal 14558-4) [facility]2022-06-22 01:44:15 Test Item Value Reference Range Interpretation Comments POCT GLU (test code = 9933722352) 298 mg/dL 70-110 H Lab Interpretation (test code = Abnormal 74667-5) [facility] LakewayCBC WITH [id number] 01:28:41 Test Item Value Reference Range Interpretation [...] (test code = 37.1 fL 39.0-49.9 L 80224-3) RDW-CV (test code = 12.5 % 12.0-15.5 788-0) PLT (test code = See_Comment [Automated 777-3) message] The sy stem which generated this result transmitted reference range : 166 - 358 10*3/ ?L. The reference r doretha was not used to interpret this result as normal/abnormal . MPV (test code = 9.9 fL 9.5-12.9 14379-4) NRBC/100 WBC (test See_Comment [Automat ed code = 8561651422) message] The system which generated this result transmitted reference range : 0.0 - 10.0 /100 WBCs. The refer ence range was not u sed to interpret th is result as normal/abnormal . NRBC x10^3 (test code See_Comment [Auto mated = 6932854373) message] The s ystem which generated this result transmitted reference range : 10*3/?L. The reference range was not used to interpret this result as normal/abnormal . GRAN MAT (NEUT) % 40.5 % (test code = 770-8) IMM GRAN % (test code 0.90 % = 6988284457) LYMPH % (test code = 48.0 % 736-9) MONO % (test code = 8.5 % 5905-5) EOS % (test code = 1.1 % 713-8) BASO % (test code = 1.0 % 706-2) GRAN MAT x10^3(ANC) 4.35 10*3/uL 1.88-7.09 (test code = 9936221645) IMM GRAN x10^3 (test 0.10 10*3/uL 0.00-0.06 H code = 0571676689) LYMPH x10^3 (test code 5.17 10*3/uL 1.32-3.29 H = 731-0) MONO x10^3 (test code 0.92 10*3/uL 0.33-0.92 = 742-7) EOS x10^3 (test code = 0.12 10*3/uL 0.03-0.39 711-2) BASO x10^3 (test code 0.11 10*3/uL 0.01-0.07 H = 704-7) Lab Interpretation Abnormal (test code = 00558-1) [facility] [id number] 00:34:27 Test Item Value Reference Interpretation Comments Range TROPONIN I (test 0.000 ng/mL See_Comment [Automated code = 7125906298) message] The system which generated this result [...] biotin. Lab Interpretation Normal (test code = 08156-7) [facility]wayN-TERMINAL [id number] 00:31:09 Test Item Value Reference Range Interpretation Comments NT-proBNP (test code 21 pg/mL See_Comment [Autom ated = 2470972867) message] The system which generated this result transmitted reference range : <=125. The reference range was not used to interpret this result as normal/abnormal . CALVIN (test code = CALVIN) Biotin has been reported to cause a negative bias, interpret results relative to patient's use of biotin. Lab Interpretation Normal (test code = 71275-5) [facility]OL[facility] (NA, K, CL, CO2, GLUCOSE, BUN, CREATININE, CA)2022-06-22 00:22:03 Test Item Value Reference Range Interpretation Comments NA (test code = 133 mmol/L 135-145 L 1158361080) K (test code = 4.7 mmol/L 3.5-5.0 2704691192) CL (test code = 91 mmol/L 98-108 L 1672149220) CO2 TOTAL (test code = 24 mmol/L 23-31 0129712681) AGAP (test code = 2-16 H 3789791227) BUN (test code = 37 mg/dL 7-23 H 3409344536) GLUCOSE (test code = 385 mg/dL 70-110 H 0933175292) CREATININE (test code = 1.09 mg/dL 0.50-1.04 H 0882386051) CALCIUM (test code = 11.5 mg/dL 8.6-10.6 H 3381083101) eGFR (test code = mL/min/1.73m2 3274596087) CALVIN (test code = CALVIN) Association of [...] tests). Lab Interpretation Abnormal (test code = 43448-1) [facility] [id number] 00:00:00 Test Item Value Reference Range Interpretation Comments GLUCOSE (test code = 2217) 259 MG/DL BUN (test code = 2208) 17 MG/DL CREATININE (test code = 2214) 0.72 MG/DL eGFR (2020 CKD-EPI) (test 106 ML/MIN/1.73 code = 06981) CALC BUN/CREAT (test code = 24 RATIO [...] code = 2219) 38 U/L COMPREHENSIVE METABOLIC [id number] 00:00:00 Test Item Value Reference Range Interpretation Comments GLUCOSE (test code = 2217) 259 MG/DL BUN (test code = 2208) 17 MG/DL CREATININE (test code = 2214) 0.72 MG/DL eGFR (2020 CKD-EPI) (test 106 ML/MIN/1.73 code = 15235) CALC BUN/CREAT (test code = 24 RATIO [...] (test code = 2219) 38 U/L LIPID [id number] 00:00:00 Test Item Value Reference Range Interpretation Comments CHOLESTEROL (test code = 2210) 196 MG/DL TRIGLYCERIDES (test code = 2232) 500 MG/DL HDL CHOLESTEROL (test code = 31 MG/DL 0) CALC LDL CHOL (test code = 2237) (NOTE) MG/DL RISK RATIO LDL/HDL (test code = (NOTE) RATIO 2238) LIPID [id number] 00:00:00 Test Item Value Reference Range Interpretation Comments CHOLESTEROL (test code = 2210) 196 MG/DL TRIGLYCERIDES (test code = 2232) 500 MG/DL HDL CHOLESTEROL (test code = 31 MG/DL 0) CALC LDL CHOL (test code = 2237) (NOTE) MG/DL RISK RATIO LDL/HDL (test code = (NOTE) RATIO 2238) HEMOGLOBIN [id number] 00:00:00 Test Item Value Reference Range Interpretation Comments HEMOGLOBIN A1c (test code = 30075) 11.0 % HEMOGLOBIN [id number] 00:00:00 Test Item Value Reference Range Interpretation Comments HEMOGLOBIN A1c (test code = 64230) 11.0 % HEMOGLOBIN [id number] 00:00:00 Test Item Value Reference Range Interpretation Comments HEMOGLOBIN A1c (test code = 79296) 11.0 % COMPREHENSIVE METABOLIC [id number] 00:00:00 Test Item Value Reference Range Interpretation Comments GLUCOSE (test code = 2217) 259 MG/DL BUN (test code = 2208) 17 MG/DL CREATININE (test code = 2214) 0.72 MG/DL eGFR (2020 CKD-EPI) (test 106 ML/MIN/1.73 code = 90952) CALC BUN/CREAT (test code = 24 RATIO [...] code = 2219) 38 U/L COMPREHENSIVE METABOLIC [id number] 00:00:00 Test Item Value Reference Range Interpretation Comments GLUCOSE (test code = 2217) 259 MG/DL BUN (test code = 2208) 17 MG/DL CREATININE (test code = 2214) 0.72 MG/DL eGFR (2020 CKD-EPI) (test 106 ML/MIN/1.73 code = 69352) CALC BUN/CREAT (test code = 24 RATIO [...] (test code = 2219) 38 U/L LIPID [id number] 00:00:00 Test Item Value Reference Range Interpretation Comments CHOLESTEROL (test code = 2210) 196 MG/DL TRIGLYCERIDES (test code = 2232) 500 MG/DL HDL CHOLESTEROL (test code = 31 MG/DL 2220) CALC LDL CHOL (test code = 2237) (NOTE) MG/DL RISK RATIO LDL/HDL (test code = (NOTE) RATIO 2238) LIPID [id number] 00:00:00 Test Item Value Reference Range Interpretation Comments CHOLESTEROL (test code = 2210) 196 MG/DL TRIGLYCERIDES (test code = 2232) 500 MG/DL HDL CHOLESTEROL (test code = 31 MG/DL 2220) CALC LDL CHOL (test code = 2237) (NOTE) MG/DL RISK RATIO LDL/HDL (test code = (NOTE) RATIO 2238) HEMOGLOBIN [id number] 00:00:00 Test Item Value Reference Range Interpretation Comments HEMOGLOBIN A1c (test code = 71452) 11.0 % HEMOGLOBIN [id number] 00:00:00 Test Item Value Reference Range Interpretation Comments HEMOGLOBIN A1c (test code = 96120) 11.0 % HEMOGLOBIN [id number] 00:00:00 Test Item Value Reference Range Interpretation Comments HEMOGLOBIN A1c (test code = 45465) 11.0 % COMPREHENSIVE METABOLIC [id number] 00:00:00 Test Item Value Reference Range Interpretation Comments GLUCOSE (test code = 2217) 259 MG/DL BUN (test code = 2208) 17 MG/DL CREATININE (test code = 2214) 0.72 MG/DL eGFR (2020 CKD-EPI) (test 106 ML/MIN/1.73 code = 97452) CALC BUN/CREAT (test code = 24 RATIO [...] code = 2219) 38 U/L COMPREHENSIVE METABOLIC [id number] 00:00:00 Test Item Value Reference Range Interpretation Comments GLUCOSE (test code = 2217) 259 MG/DL BUN (test code = 2208) 17 MG/DL CREATININE (test code = 2214) 0.72 MG/DL eGFR (2020 CKD-EPI) (test 106 ML/MIN/1.73 code = 04819) CALC BUN/CREAT (test code = 24 RATIO [...] (test code = 2219) 38 U/L LIPID [id number] 00:00:00 Test Item Value Reference Range Interpretation Comments CHOLESTEROL (test code = 2210) 196 MG/DL TRIGLYCERIDES (test code = 2232) 500 MG/DL HDL CHOLESTEROL (test code = 31 MG/DL 2220) CALC LDL CHOL (test code = 2237) (NOTE) MG/DL RISK RATIO LDL/HDL (test code = (NOTE) RATIO 2238) LIPID [id number] 00:00:00 Test Item Value Reference Range Interpretation Comments CHOLESTEROL (test code = 2210) 196 MG/DL TRIGLYCERIDES (test code = 2232) 500 MG/DL HDL CHOLESTEROL (test code = 31 MG/DL 2220) CALC LDL CHOL (test code = 2237) (NOTE) MG/DL RISK RATIO LDL/HDL (test code = (NOTE) RATIO 2238) HEMOGLOBIN [id number] 00:00:00 Test Item Value Reference Range Interpretation Comments HEMOGLOBIN A1c (test code = 84569) 11.0 % HEMOGLOBIN [id number] 00:00:00 Test Item Value Reference Range Interpretation Comments HEMOGLOBIN A1c (test code = 44775) 11.0 % HEMOGLOBIN [id number] 00:00:00 Test Item Value Reference Range Interpretation Comments HEMOGLOBIN A1c (test code = 91747) 11.0 % COMPREHENSIVE METABOLIC [id number] 00:00:00 Test Item Value Reference Range Interpretation Comments GLUCOSE (test code = 2217) 259 MG/DL BUN (test code = 2208) 17 MG/DL CREATININE (test code = 2214) 0.72 MG/DL eGFR (2020 CKD-EPI) (test 106 ML/MIN/1.73 code = 72889) CALC BUN/CREAT (test code = 24 RATIO [...] = 0.3 MG/DL 220) ALKALINE PHOSPHATASE (test 61 U/L code = 2204) AST (test code = 2218) 22 U/L ALT (test code = 2219) 38 U/L COMPREHENSIVE METABOLIC [id number] 00:00:00 Test Item Value Reference Range Interpretation Comments GLUCOSE (test code = 2217) 259 MG/DL BUN (test code = 2208) 17 MG/DL CREATININE (test code = 2214) 0.72 MG/DL eGFR (2020 CKD-EPI) (test 106 ML/MIN/1.73 code = 66162) CALC BUN/CREAT (test code = 24 RATIO [...] (test code = 2219) 38 U/L LIPID [id number] 00:00:00 Test Item Value Reference Range Interpretation Comments CHOLESTEROL (test code = 2210) 196 MG/DL TRIGLYCERIDES (test code = 2232) 500 MG/DL HDL CHOLESTEROL (test code = 31 MG/DL 2220) CALC LDL CHOL (test code = 2237) (NOTE) MG/DL RISK RATIO LDL/HDL (test code = (NOTE) RATIO 2238) LIPID [id number] 00:00:00 Test Item Value Reference Range Interpretation Comments CHOLESTEROL (test code = 2210) 196 MG/DL TRIGLYCERIDES (test code = 2232) 500 MG/DL HDL CHOLESTEROL (test code = 31 MG/DL 2220) CALC LDL CHOL (test code = 2237) (NOTE) MG/DL RISK RATIO LDL/HDL (test code = (NOTE) RATIO 2238) HEMOGLOBIN [id number] 00:00:00 Test Item Value Reference Range Interpretation Comments HEMOGLOBIN A1c (test code = 88375) 11.0 % HEMOGLOBIN [id number] 00:00:00 Test Item Value Reference Range Interpretation Comments HEMOGLOBIN A1c (test code = 29100) 11.0 % HEMOGLOBIN [id number] 00:00:00 Test Item Value Reference Range Interpretation Comments HEMOGLOBIN A1c (test code = 60698) 11.0 % VAGINAL PATHOGENS DNA [id number] 15:33:03 Test Item Value Reference Range Interpretation Comments ANDIE SPECIES (test NEGATIVE NEGATIVE code = ) G. VAGINALIS (test NEGATIVE NEGATIVE code = 49240) T. VAGINALIS (test NEGATIVE NEGATIVE UNLESS O THERWISE code = 27334) INDICATED, ALL TESTING PERFORMED [facility]. [address] [place] [address] LABORATORY DIRE CTOR: NOAH TODD M.D. CLIA NUMBER [id number] [place] [id number] VAGINAL PATHOGENS DNA [id number] 00:00:00 Test Item Value Reference Range Interpretation Comments ANDIE SPECIES (test code = ) NEGATIVE G. VAGINALIS (test code = 07007) NEGATIVE T. VAGINALIS (test code = 67646) NEGATIVE VAGINAL PATHOGENS DNA [id number] 00:00:00 Test Item Value Reference Range Interpretation Comments ANDIE SPECIES (test code = 04627) NEGATIVE G. VAGINALIS (test code = 11117) NEGATIVE T. VAGINALIS (test code = 74816) NEGATIVE VAGINAL PATHOGENS DNA [id number] 00:00:00 Test Item Value Reference Range Interpretation Comments ANDIE SPECIES (test code = 24983) NEGATIVE G. VAGINALIS (test code = 55908) NEGATIVE T. VAGINALIS (test code = 38204) NEGATIVE VAGINAL PATHOGENS DNA [id number] 00:00:00 Test Item Value Reference Range Interpretation Comments ANDIE SPECIES (test code = 53637) NEGATIVE G. VAGINALIS (test code = 42259) NEGATIVE T. VAGINALIS (test code = 38065) NEGATIVE VAGINAL PATHOGENS DNA [id number] 00:00:00 Test Item Value Reference Range Interpretation Comments ANDIE SPECIES (test code = 30716) NEGATIVE G. VAGINALIS (test code = 81849) NEGATIVE T. VAGINALIS (test code = 48672) NEGATIVE VAGINAL PATHOGENS DNA [id number] 00:00:00 Test Item Value Reference Range Interpretation Comments ANDIE SPECIES (test code = 10748) NEGATIVE G. VAGINALIS (test code = 48099) NEGATIVE T. VAGINALIS (test code = 65327) NEGATIVE VAGINAL PATHOGENS DNA [id number] 00:00:00 Test Item Value Reference Range Interpretation Comments ANDIE SPECIES (test code = 41231) NEGATIVE G. VAGINALIS (test code = 70478) NEGATIVE T. VAGINALIS (test code = 38805) NEGATIVE VAGINAL PATHOGENS DNA [id number] 00:00:00 Test Item Value Reference Range Interpretation Comments ANDIE SPECIES (test code = 55587) NEGATIVE G. VAGINALIS (test code = 22859) NEGATIVE T. VAGINALIS (test code = 76546) NEGATIVE VAGINAL PATHOGENS DNA [id number] 00:00:00 Test Item Value Reference Range Interpretation Comments ANDIE SPECIES (test code = 16769) NEGATIVE G. VAGINALIS (test code = 20032) NEGATIVE T. VAGINALIS (test code = 74656) NEGATIVE VAGINAL PATHOGENS DNA [id number] 00:00:00 Test Item Value Reference Range Interpretation Comments ANDIE SPECIES (test code = 09185) NEGATIVE G. VAGINALIS (test code = 49010) NEGATIVE T. VAGINALIS (test code = 74740) NEGATIVE CULTURE, [id number] 14:55:44SPECIMEN NUMBER: [id number] CULTURE, URINE SPECIMEN NUMBER: [id number] SPECIMEN COMMENT: URINE SOURCE:URINE REPORT STATUS: FINAL FINAL REPORT: 04/11/2022 <10,000 CFU/ML UROGENITAL NORMA PRESENT NO COM MON PATHOGENSCULTURE, [id number] 00:00:00 Test Item Value Reference Range Interpretation Comments CULTURE, URINE (test SPECIMEN NUMBER: code = 15258) [id number] CULTURE, [id number] 00:00:00 Test Item Value Reference Range Interpretation Comments CULTURE, URINE (test SPECIMEN NUMBER: code = 33495) [id number] CULTURE, [id number] 00:00:00 Test Item Value Reference Range Interpretation Comments CULTURE, URINE (test SPECIMEN NUMBER: code = 47607) [id number] CULTURE, [id number] 00:00:00 Test Item Value Reference Range Interpretation Comments CULTURE, URINE (test SPECIMEN NUMBER: code = 76152) [id number] CULTURE, [id number] 00:00:00 Test Item Value Reference Range Interpretation Comments CULTURE, URINE (test SPECIMEN NUMBER: code = 37122) [id number] CULTURE, [id number] 00:00:00 Test Item Value Reference Range Interpretation Comments CULTURE, URINE (test SPECIMEN NUMBER: code = 40087) [id number] CULTURE, [id number] 00:00:00 Test Item Value Reference Range Interpretation Comments CULTURE, URINE (test SPECIMEN NUMBER: code = 82533) [id number] CULTURE, [id number] 00:00:00 Test Item Value Reference Range Interpretation Comments CULTURE, URINE (test SPECIMEN NUMBER: code = 97985) [id number] CULTURE, [id number] 00:00:00 Test Item Value Reference Range Interpretation Comments CULTURE, URINE (test SPECIMEN NUMBER: code = 21458) [id number] CULTURE, [id number] 00:00:00 Test Item Value Reference Range Interpretation Comments CULTURE, URINE (test SPECIMEN NUMBER: code = 01879) [id number] CULTURE, [id number] 00:00:00 Test Item Value Reference Range Interpretation Comments CULTURE, URINE (test SPECIMEN NUMBER: code = 81387) [id number] CULTURE, [id number] 00:00:00 Test Item Value Reference Range Interpretation Comments CULTURE, URINE (test SPECIMEN NUMBER: code = 24419) [id number] CULTURE, [id number] 00:00:00 Test Item Value Reference Range Interpretation Comments CULTURE, URINE (test SPECIMEN NUMBER: code = 54782) [id number] CULTURE, [id number] 00:00:00 Test Item Value Reference Range Interpretation Comments CULTURE, URINE (test SPECIMEN NUMBER: code = 95128) [id number] CBC W/AUTO DIFF WITH [id number] 02:13:01 Test Item Value Reference Range Interpretation [...] message] code = 1065) WBC'S The system [employer] generated this result transmitted ref erence range: [...] 0.00-0.11 UNLESS O THERWISE (test code = 77951) INDICATE D, ALL TESTING PERFORM ED ATCLINICAL PATH [facility]LOG[facility] LAB[facility], [place]. [address] [place] [address] [facility] DIRECTOR: NOAH DICKENS M.D. CLIA NUMBER [id number] CAP ACCREDITATION N O. [id number] CBC W/AUTO [id number] 00:00:00 Test Item Value Reference Range Interpretation [...] NUCLEATED RBCS (test code = 0.00 K/UL 82715) CBC W/AUTO [id number] 00:00:00 Test Item Value Reference Range Interpretation [...] NUCLEATED RBCS (test code = 0.00 K/UL 22884) CBC W/AUTO [id number] 00:00:00 Test Item Value Reference Range Interpretation [...] NUCLEATED RBCS (test code = 0.00 K/UL 18854) CBC W/AUTO [id number] 00:00:00 Test Item Value Reference Range Interpretation [...] NUCLEATED RBCS (test code = 0.00 K/UL 08567) CBC W/AUTO [id number] 00:00:00 Test Item Value Reference Range Interpretation [...] NUCLEATED RBCS (test code = 0.00 K/UL 84856) CBC W/AUTO [id number] 00:00:00 Test Item Value Reference Range Interpretation [...] NUCLEATED RBCS (test code = 0.00 K/UL 30672) CBC W/AUTO [id number] 00:00:00 Test Item Value Reference Range Interpretation [...] NUCLEATED RBCS (test code = 0.00 K/UL 38446) CBC W/AUTO [id number] 00:00:00 Test Item Value Reference Range Interpretation [...] NUCLEATED RBCS (test code = 0.00 K/UL 15979) CBC W/AUTO [id number] 00:00:00 Test Item Value Reference Range Interpretation [...] NUCLEATED RBCS (test code = 0.00 K/UL 79704) CBC W/AUTO [id number] 00:00:00 Test Item Value Reference Range Interpretation [...] NUCLEATED RBCS (test code = 0.00 K/UL 79315) CBC W/AUTO [id number] 00:00:00 Test Item Value Reference Range Interpretation [...] NUCLEATED RBCS (test code = 0.00 K/UL 49838) CBC W/AUTO [id number] 00:00:00 Test Item Value Reference Range Interpretation [...] NUCLEATED RBCS (test code = 0.00 K/UL 40501) CBC W/AUTO [id number] 00:00:00 Test Item Value Reference Range Interpretation [...] NUCLEATED RBCS (test code = 0.00 K/UL 35808) CBC W/AUTO [id number] 00:00:00 Test Item Value Reference Range Interpretation [...] NUCLEATED RBCS (test code = 0.00 K/UL 72013) CBC W/AUTO [id number] 00:00:00 Test Item Value Reference Range Interpretation [...] NUCLEATED RBCS (test code = 0.00 K/UL 50839) CBC W/AUTO [id number] 00:00:00 Test Item Value Reference Range Interpretation [...] NUCLEATED RBCS (test code = 0.00 K/UL 62686) CBC W/AUTO [id number] 00:00:00 Test Item Value Reference Range Interpretation [...] NUCLEATED RBCS (test code = 0.00 K/UL 82277) CBC W/AUTO [id number] 00:00:00 Test Item Value Reference Range Interpretation [...] NUCLEATED RBCS (test code = 0.00 K/UL 48012) CBC W/AUTO [id number] 00:00:00 Test Item Value Reference Range Interpretation [...] NUCLEATED RBCS (test code = 0.00 K/UL 19460) CBC W/AUTO [id number] 00:00:00 Test Item Value Reference Range Interpretation [...] NUCLEATED RBCS (test code = 0.00 K/UL 08878) CBC W/AUTO [id number] 00:00:00 Test Item Value Reference Range Interpretation [...] NUCLEATED RBCS (test code = 0.00 K/UL 18319) COMPREHENSIVE METABOLIC [id number] 04:26:32 Test Item Value Reference Range Interpretation Comments GLUCOSE (test code = 122 MG/DL 70-99 H 2216) BUN (test code = 11 MG/DL 6-20 2207) CREATININE (test 0.65 MG/DL 0.60-1.30 code = 2214) eGFR (2020 CKD-EPI) 111 >60 (test code = 21465) ML/MIN/1.73 CALC BUN/CREAT (test 17 RATIO 6-28 code = 2235) SODIUM (test code = 145 MEQ/L 710-803 5873) POTASSIUM (test code 4.2 MEQ/L 3.5-5.4 = [...] PHOSPHATASE 62 U/L 40-115 (test code = 2204) AST (test code = 24 U/L 9-40 2217) ALT (test code = 38 U/L 5-40 2218) LIPID [id number] 04:26:32 Test Item Value Reference Range Interpretation [...] MOREINFORMATION , SEE CLIENT ANNOUNCE MENT AT [email or web address]-C RISK RATIO LDL/HDL 2.84 RATIO <3.22 (test code = 2238) HEMOGLOBIN [id number] 04:03:31 Test Item Value Reference Range Interpretation Comments HEMOGLOBIN A1c (test 10.9 % 4.2-5.6 H [employer] AN DIABETES code = 73320) ASSOCIATION [employer] FOR HGB A1C: PREDIABETES/INC REASED [...] INDICATED, ALL TESTING PER FORMED ATCLINICAL PATH [facility], [facility]. [address] [place] [address] LABORATORY DIRE CTOR: Carlos Enrique BERNARD. SHUBHAM NUMBER [id number] CAP ACCREDITATION N O. [id number] COMPREHENSIVE METABOLIC [id number] 00:00:00 Test Item Value Reference Range Interpretation Comments GLUCOSE (test code = 2217) 122 MG/DL BUN (test code = 2208) 11 MG/DL CREATININE (test code = 2214) 0.65 MG/DL eGFR (2020 CKD-EPI) (test 111 ML/MIN/1.73 code = 80917) CALC BUN/CREAT (test code = 17 RATIO [...] code = 2219) 38 U/L COMPREHENSIVE METABOLIC [id number] 00:00:00 Test Item Value Reference Range Interpretation Comments GLUCOSE (test code = 2217) 122 MG/DL BUN (test code = 2208) 11 MG/DL CREATININE (test code = 2214) 0.65 MG/DL eGFR (2020 CKD-EPI) (test 111 ML/MIN/1.73 code = 14821) CALC BUN/CREAT (test code = 17 RATIO [...] (test code = 2219) 38 U/L LIPID [id number] 00:00:00 Test Item Value Reference Range Interpretation Comments CHOLESTEROL (test code = 2210) 169 MG/DL TRIGLYCERIDES (test code = 2232) 346 MG/DL HDL CHOLESTEROL (test code = 2220) 32 MG/DL CALC LDL CHOL (test code = 2237) 91 MG/DL RISK RATIO LDL/HDL (test code = 2.84 RATIO 2238) LIPID [id number] 00:00:00 Test Item Value Reference Range Interpretation Comments CHOLESTEROL (test code = 2210) 169 MG/DL TRIGLYCERIDES (test code = 2232) 346 MG/DL HDL CHOLESTEROL (test code = 2220) 32 MG/DL CALC LDL CHOL (test code = 2237) 91 MG/DL RISK RATIO LDL/HDL (test code = 2.84 RATIO 2238) HEMOGLOBIN [id number] 00:00:00 Test Item Value Reference Range Interpretation Comments HEMOGLOBIN A1c (test code = 71605) 10.9 % HEMOGLOBIN [id number] 00:00:00 Test Item Value Reference Range Interpretation Comments HEMOGLOBIN A1c (test code = 54979) 10.9 % HEMOGLOBIN [id number] 00:00:00 Test Item Value Reference Range Interpretation Comments HEMOGLOBIN A1c (test code = 73822) 10.9 % COMPREHENSIVE METABOLIC [id number] 00:00:00 Test Item Value Reference Range Interpretation Comments GLUCOSE (test code = 2217) 122 MG/DL BUN (test code = 2208) 11 MG/DL CREATININE (test code = 2214) 0.65 MG/DL eGFR (2020 CKD-EPI) (test 111 ML/MIN/1.73 code = 91920) CALC BUN/CREAT (test code = 17 RATIO [...] code = 2219) 38 U/L COMPREHENSIVE METABOLIC [id number] 00:00:00 Test Item Value Reference Range Interpretation Comments GLUCOSE (test code = 2217) 122 MG/DL BUN (test code = 2208) 11 MG/DL CREATININE (test code = 2214) 0.65 MG/DL eGFR (2020 CKD-EPI) (test 111 ML/MIN/1.73 code = 45295) CALC BUN/CREAT (test code = 17 RATIO [...] (test code = 2219) 38 U/L LIPID [id number] 00:00:00 Test Item Value Reference Range Interpretation Comments CHOLESTEROL (test code = 2210) 169 MG/DL TRIGLYCERIDES (test code = 2232) 346 MG/DL HDL CHOLESTEROL (test code = 2220) 32 MG/DL CALC LDL CHOL (test code = 2237) 91 MG/DL RISK RATIO LDL/HDL (test code = 2.84 RATIO 2238) LIPID [id number] 00:00:00 Test Item Value Reference Range Interpretation Comments CHOLESTEROL (test code = 2210) 169 MG/DL TRIGLYCERIDES (test code = 2232) 346 MG/DL HDL CHOLESTEROL (test code = 2220) 32 MG/DL CALC LDL CHOL (test code = 2237) 91 MG/DL RISK RATIO LDL/HDL (test code = 2.84 RATIO 2238) HEMOGLOBIN [id number] 00:00:00 Test Item Value Reference Range Interpretation Comments HEMOGLOBIN A1c (test code = 62291) 10.9 % HEMOGLOBIN [id number] 00:00:00 Test Item Value Reference Range Interpretation Comments HEMOGLOBIN A1c (test code = 30734) 10.9 % HEMOGLOBIN [id number] 00:00:00 Test Item Value Reference Range Interpretation Comments HEMOGLOBIN A1c (test code = 73490) 10.9 % COMPREHENSIVE METABOLIC [id number] 00:00:00 Test Item Value Reference Range Interpretation Comments GLUCOSE (test code = 2217) 122 MG/DL BUN (test code = 2208) 11 MG/DL CREATININE (test code = 2214) 0.65 MG/DL eGFR (2020 CKD-EPI) (test 111 ML/MIN/1.73 code = 44491) CALC BUN/CREAT (test code = 17 RATIO [...] code = 2219) 38 U/L COMPREHENSIVE METABOLIC [id number] 00:00:00 Test Item Value Reference Range Interpretation Comments GLUCOSE (test code = 2217) 122 MG/DL BUN (test code = 2208) 11 MG/DL CREATININE (test code = 2214) 0.65 MG/DL eGFR (2020 CKD-EPI) (test 111 ML/MIN/1.73 code = 05429) CALC BUN/CREAT (test code = 17 RATIO [...] (test code = 2219) 38 U/L LIPID [id number] 00:00:00 Test Item Value Reference Range Interpretation Comments CHOLESTEROL (test code = 2210) 169 MG/DL TRIGLYCERIDES (test code = 2232) 346 MG/DL HDL CHOLESTEROL (test code = 2220) 32 MG/DL CALC LDL CHOL (test code = 2237) 91 MG/DL RISK RATIO LDL/HDL (test code = 2.84 RATIO 2238) LIPID [id number] 00:00:00 Test Item Value Reference Range Interpretation Comments CHOLESTEROL (test code = 2210) 169 MG/DL TRIGLYCERIDES (test code = 2232) 346 MG/DL HDL CHOLESTEROL (test code = 2220) 32 MG/DL CALC LDL CHOL (test code = 2237) 91 MG/DL RISK RATIO LDL/HDL (test code = 2.84 RATIO 2238) HEMOGLOBIN [id number] 00:00:00 Test Item Value Reference Range Interpretation Comments HEMOGLOBIN A1c (test code = 00734) 10.9 % HEMOGLOBIN [id number] 00:00:00 Test Item Value Reference Range Interpretation Comments HEMOGLOBIN A1c (test code = 76995) 10.9 % HEMOGLOBIN [id number] 00:00:00 Test Item Value Reference Range Interpretation Comments HEMOGLOBIN A1c (test code = 17880) 10.9 % COMPREHENSIVE METABOLIC [id number] 00:00:00 Test Item Value Reference Range Interpretation Comments GLUCOSE (test code = 2217) 122 MG/DL BUN (test code = 2208) 11 MG/DL CREATININE (test code = 2214) 0.65 MG/DL eGFR (2020 CKD-EPI) (test 111 ML/MIN/1.73 code = 44286) CALC BUN/CREAT (test code = 17 RATIO [...] code = 2219) 38 U/L COMPREHENSIVE METABOLIC [id number] 00:00:00 Test Item Value Reference Range Interpretation Comments GLUCOSE (test code = 2217) 122 MG/DL BUN (test code = 2208) 11 MG/DL CREATININE (test code = 2214) 0.65 MG/DL eGFR (2020 CKD-EPI) (test 111 ML/MIN/1.73 code = 71310) CALC BUN/CREAT (test code = 17 RATIO [...] (test code = 2219) 38 U/L LIPID [id number] 00:00:00 Test Item Value Reference Range Interpretation Comments CHOLESTEROL (test code = 2210) 169 MG/DL TRIGLYCERIDES (test code = 2232) 346 MG/DL HDL CHOLESTEROL (test code = 2220) 32 MG/DL CALC LDL CHOL (test code = 2237) 91 MG/DL RISK RATIO LDL/HDL (test code = 2.84 RATIO 2238) LIPID [id number] 00:00:00 Test Item Value Reference Range Interpretation Comments CHOLESTEROL (test code = 2210) 169 MG/DL TRIGLYCERIDES (test code = 2232) 346 MG/DL HDL CHOLESTEROL (test code = 2220) 32 MG/DL CALC LDL CHOL (test code = 2237) 91 MG/DL RISK RATIO LDL/HDL (test code = 2.84 RATIO 2238) HEMOGLOBIN [id number] 00:00:00 Test Item Value Reference Range Interpretation Comments HEMOGLOBIN A1c (test code = 27722) 10.9 % HEMOGLOBIN [id number] 00:00:00 Test Item Value Reference Range Interpretation Comments HEMOGLOBIN A1c (test code = 85829) 10.9 % HEMOGLOBIN [id number] 00:00:00 Test Item Value Reference Range Interpretation Comments HEMOGLOBIN A1c (test code = 51736) 10.9 % COMPREHENSIVE METABOLIC [id number] 00:00:00 Test Item Value Reference Range Interpretation Comments GLUCOSE (test code = 2217) 122 MG/DL BUN (test code = 2208) 11 MG/DL CREATININE (test code = 2214) 0.65 MG/DL eGFR (2020 CKD-EPI) (test 111 ML/MIN/1.73 code = 81070) CALC BUN/CREAT (test code = 17 RATIO [...] code = 2219) 38 U/L COMPREHENSIVE METABOLIC [id number] 00:00:00 Test Item Value Reference Range Interpretation Comments GLUCOSE (test code = 2217) 122 MG/DL BUN (test code = 2208) 11 MG/DL CREATININE (test code = 2214) 0.65 MG/DL eGFR (2020 CKD-EPI) (test 111 ML/MIN/1.73 code = 28977) CALC BUN/CREAT (test code = 17 RATIO [...] (test code = 2219) 38 U/L LIPID [id number] 00:00:00 Test Item Value Reference Range Interpretation Comments CHOLESTEROL (test code = 2210) 169 MG/DL TRIGLYCERIDES (test code = 2232) 346 MG/DL HDL CHOLESTEROL (test code = 2220) 32 MG/DL CALC LDL CHOL (test code = 2237) 91 MG/DL RISK RATIO LDL/HDL (test code = 2.84 RATIO 2238) LIPID [id number] 00:00:00 Test Item Value Reference Range Interpretation Comments CHOLESTEROL (test code = 2210) 169 MG/DL TRIGLYCERIDES (test code = 2232) 346 MG/DL HDL CHOLESTEROL (test code = 2220) 32 MG/DL CALC LDL CHOL (test code = 2237) 91 MG/DL RISK RATIO LDL/HDL (test code = 2.84 RATIO 2238) HEMOGLOBIN [id number] 00:00:00 Test Item Value Reference Range Interpretation Comments HEMOGLOBIN A1c (test code = 14081) 10.9 % HEMOGLOBIN [id number] 00:00:00 Test Item Value Reference Range Interpretation Comments HEMOGLOBIN A1c (test code = 93857) 10.9 % HEMOGLOBIN [id number] 00:00:00 Test Item Value Reference Range Interpretation Comments HEMOGLOBIN A1c (test code = 46244) 10.9 % COMPREHENSIVE METABOLIC [id number] 00:00:00 Test Item Value Reference Range Interpretation Comments GLUCOSE (test code = 2217) 122 MG/DL BUN (test code = 2208) 11 MG/DL CREATININE (test code = 2214) 0.65 MG/DL eGFR (2020 CKD-EPI) (test 111 ML/MIN/1.73 code = 95137) CALC BUN/CREAT (test code = 17 RATIO [...] code = 2219) 38 U/L COMPREHENSIVE METABOLIC [id number] 00:00:00 Test Item Value Reference Range Interpretation Comments GLUCOSE (test code = 2217) 122 MG/DL BUN (test code = 2208) 11 MG/DL CREATININE (test code = 2214) 0.65 MG/DL eGFR (2020 CKD-EPI) (test 111 ML/MIN/1.73 code = 24689) CALC BUN/CREAT (test code = 17 RATIO [...] (test code = 2219) 38 U/L LIPID [id number] 00:00:00 Test Item Value Reference Range Interpretation Comments CHOLESTEROL (test code = 2210) 169 MG/DL TRIGLYCERIDES (test code = 2232) 346 MG/DL HDL CHOLESTEROL (test code = 2220) 32 MG/DL CALC LDL CHOL (test code = 2237) 91 MG/DL RISK RATIO LDL/HDL (test code = 2.84 RATIO 2238) LIPID [id number] 00:00:00 Test Item Value Reference Range Interpretation Comments CHOLESTEROL (test code = 2210) 169 MG/DL TRIGLYCERIDES (test code = 2232) 346 MG/DL HDL CHOLESTEROL (test code = 2220) 32 MG/DL CALC LDL CHOL (test code = 2237) 91 MG/DL RISK RATIO LDL/HDL (test code = 2.84 RATIO 2238) HEMOGLOBIN [id number] 00:00:00 Test Item Value Reference Range Interpretation Comments HEMOGLOBIN A1c (test code = 10810) 10.9 % HEMOGLOBIN [id number] 00:00:00 Test Item Value Reference Range Interpretation Comments HEMOGLOBIN A1c (test code = 24950) 10.9 % HEMOGLOBIN [id number] 00:00:00 Test Item Value Reference Range Interpretation Comments HEMOGLOBIN A1c (test code = 99021) 10.9 % COMPREHENSIVE METABOLIC [id number] 00:00:00 Test Item Value Reference Range Interpretation Comments GLUCOSE (test code = 2217) 122 MG/DL BUN (test code = 2208) 11 MG/DL CREATININE (test code = 2214) 0.65 MG/DL eGFR (2020 CKD-EPI) (test 111 ML/MIN/1.73 code = 78552) CALC BUN/CREAT (test code = 17 RATIO [...] code = 2219) 38 U/L COMPREHENSIVE METABOLIC [id number] 00:00:00 Test Item Value Reference Range Interpretation Comments GLUCOSE (test code = 2217) 122 MG/DL BUN (test code = 2208) 11 MG/DL CREATININE (test code = 2214) 0.65 MG/DL eGFR (2020 CKD-EPI) (test 111 ML/MIN/1.73 code = 57206) CALC BUN/CREAT (test code = 17 RATIO [...] (test code = 2219) 38 U/L LIPID [id number] 00:00:00 Test Item Value Reference Range Interpretation Comments CHOLESTEROL (test code = 2210) 169 MG/DL TRIGLYCERIDES (test code = 2232) 346 MG/DL HDL CHOLESTEROL (test code = 2220) 32 MG/DL CALC LDL CHOL (test code = 2237) 91 MG/DL RISK RATIO LDL/HDL (test code = 2.84 RATIO 2238) LIPID [id number] 00:00:00 Test Item Value Reference Range Interpretation Comments CHOLESTEROL (test code = 2210) 169 MG/DL TRIGLYCERIDES (test code = 2232) 346 MG/DL HDL CHOLESTEROL (test code = 2220) 32 MG/DL CALC LDL CHOL (test code = 2237) 91 MG/DL RISK RATIO LDL/HDL (test code = 2.84 RATIO 2238) HEMOGLOBIN [id number] 00:00:00 Test Item Value Reference Range Interpretation Comments HEMOGLOBIN A1c (test code = 05106) 10.9 % HEMOGLOBIN [id number] 00:00:00 Test Item Value Reference Range Interpretation Comments HEMOGLOBIN A1c (test code = 14916) 10.9 % HEMOGLOBIN [id number] 00:00:00 Test Item Value Reference Range Interpretation Comments HEMOGLOBIN A1c (test code = 63495) 10.9 % COMPREHENSIVE METABOLIC [id number] 00:00:00 Test Item Value Reference Range Interpretation Comments GLUCOSE (test code = 2217) 122 MG/DL BUN (test code = 2208) 11 MG/DL CREATININE (test code = 2214) 0.65 MG/DL eGFR (2020 CKD-EPI) (test 111 ML/MIN/1.73 code = 85025) CALC BUN/CREAT (test code = 17 RATIO [...] code = 2219) 38 U/L COMPREHENSIVE METABOLIC [id number] 00:00:00 Test Item Value Reference Range Interpretation Comments GLUCOSE (test code = 2217) 122 MG/DL BUN (test code = 2208) 11 MG/DL CREATININE (test code = 2214) 0.65 MG/DL eGFR (2020 CKD-EPI) (test 111 ML/MIN/1.73 code = 27893) CALC BUN/CREAT (test code = 17 RATIO [...] RATIO 223) BILIRUBIN, TOTAL (test code = 0.5 MG/DL 2206) ALKALINE PHOSPHATASE (test 62 U/L code = 2204) AST (test code = 2218) 24 U/L ALT (test code = 2219) 38 U/L LIPID [id number] 00:00:00 Test Item Value Reference Range Interpretation Comments CHOLESTEROL (test code = 2210) 169 MG/DL TRIGLYCERIDES (test code = 2232) 346 MG/DL HDL CHOLESTEROL (test code = 2220) 32 MG/DL CALC LDL CHOL (test code = 2237) 91 MG/DL RISK RATIO LDL/HDL (test code = 2.84 RATIO 2238) LIPID [id number] 00:00:00 Test Item Value Reference Range Interpretation Comments CHOLESTEROL (test code = 2210) 169 MG/DL TRIGLYCERIDES (test code = 2232) 346 MG/DL HDL CHOLESTEROL (test code = 2220) 32 MG/DL CALC LDL CHOL (test code = 2237) 91 MG/DL RISK RATIO LDL/HDL (test code = 2.84 RATIO 2238) HEMOGLOBIN [id number] 00:00:00 Test Item Value Reference Range Interpretation Comments HEMOGLOBIN A1c (test code = 23808) 10.9 % HEMOGLOBIN [id number] 00:00:00 Test Item Value Reference Range Interpretation Comments HEMOGLOBIN A1c (test code = 51623) 10.9 % HEMOGLOBIN [id number] 00:00:00 Test Item Value Reference Range Interpretation Comments HEMOGLOBIN A1c (test code = 91064) 10.9 % COMPREHENSIVE METABOLIC [id number] 00:00:00 Test Item Value Reference Range Interpretation Comments GLUCOSE (test code = 2217) 122 MG/DL BUN (test code = 2208) 11 MG/DL CREATININE (test code = 2214) 0.65 MG/DL eGFR (2020 CKD-EPI) (test 111 ML/MIN/1.73 code = 64647) CALC BUN/CREAT (test code = 17 RATIO [...] code = 2219) 38 U/L COMPREHENSIVE METABOLIC [id number] 00:00:00 Test Item Value Reference Range Interpretation Comments GLUCOSE (test code = 2217) 122 MG/DL BUN (test code = 2208) 11 MG/DL CREATININE (test code = 2214) 0.65 MG/DL eGFR (2020 CKD-EPI) (test 111 ML/MIN/1.73 code = 74135) CALC BUN/CREAT (test code = 17 RATIO [...] (test code = 2219) 38 U/L LIPID [id number] 00:00:00 Test Item Value Reference Range Interpretation Comments CHOLESTEROL (test code = 2210) 169 MG/DL TRIGLYCERIDES (test code = 2232) 346 MG/DL HDL CHOLESTEROL (test code = 2220) 32 MG/DL CALC LDL CHOL (test code = 2237) 91 MG/DL RISK RATIO LDL/HDL (test code = 2.84 RATIO 2238) LIPID [id number] 00:00:00 Test Item Value Reference Range Interpretation Comments CHOLESTEROL (test code = 2210) 169 MG/DL TRIGLYCERIDES (test code = 2232) 346 MG/DL HDL CHOLESTEROL (test code = 2220) 32 MG/DL CALC LDL CHOL (test code = 2237) 91 MG/DL RISK RATIO LDL/HDL (test code = 2.84 RATIO 2238) HEMOGLOBIN [id number] 00:00:00 Test Item Value Reference Range Interpretation Comments HEMOGLOBIN A1c (test code = 47038) 10.9 % HEMOGLOBIN [id number] 00:00:00 Test Item Value Reference Range Interpretation Comments HEMOGLOBIN A1c (test code = 26215) 10.9 % HEMOGLOBIN [id number] 00:00:00 Test Item Value Reference Range Interpretation Comments HEMOGLOBIN A1c (test code = 85427) 10.9 % VITAMIN D, 25 [id number] 04:13:44 Test Item Value Reference Range Interpretation [...] ATED, ALL TESTING PERFORM ED ATCLINICAL PATH [facility], [facility]. [address] [facility] [place] [place] [address] LABORATORY DIRE CTOR: Carlos Enrique BERNARD. CHERELLEIA NUMBER [id number] CAP ACCREDITATION N O. [id number] HIV 1/2 4TH GEN, RFLX [id number] 03:26:41 Test Item Value Reference Range Interpretation Comments HIV 1/2 4TH GEN, RFLX CONF (test NON-REACTIVE NON-REACTIVE code = 3514) ALBUMIN, URINE, [id number] 02:46:02 Test Item Value Reference Range Interpretation Comments ALBUMIN, URINE, RANDOM (test code 10.2 MG/DL NOT ESTAB = 07569) MICROALBUMIN, [id number] 00:00:00 Test Item Value Reference Range Interpretation Comments ALBUMIN, URINE, RANDOM (test code 10.2 MG/DL = 44224) MICROALBUMIN, [id number] 00:00:00 Test Item Value Reference Range Interpretation Comments ALBUMIN, URINE, RANDOM (test code 10.2 MG/DL = 52253) HIV AB/AG COMBO RFLX [id number] 00:00:00 Test Item Value Reference Range Interpretation Comments HIV 1/2 4TH GEN, RFLX CONF (test NON-REACTIVE code = 3514) HIV AB/AG COMBO RFLX [id number] 00:00:00 Test Item Value Reference Range Interpretation Comments HIV 1/2 4TH GEN, RFLX CONF (test NON-REACTIVE code = 3514) VITAMIN D, 25 [id number] 00:00:00 Test Item Value Reference Range Interpretation Comments VITAMIN D, 25 OH (test code = 4958) 18 NG/ML VITAMIN D, 25 [id number] 00:00:00 Test Item Value Reference Range Interpretation Comments VITAMIN D, 25 OH (test code = 4958) 18 NG/ML MICROALBUMIN, [id number] 00:00:00 Test Item Value Reference Range Interpretation Comments ALBUMIN, URINE, RANDOM (test code 10.2 MG/DL = 72429) MICROALBUMIN, [id number] 00:00:00 Test Item Value Reference Range Interpretation Comments ALBUMIN, URINE, RANDOM (test code 10.2 MG/DL = 10087) HIV AB/AG COMBO RFLX [id number] 00:00:00 Test Item Value Reference Range Interpretation Comments HIV 1/2 4TH GEN, RFLX CONF (test NON-REACTIVE code = 3514) HIV AB/AG COMBO RFLX [id number] 00:00:00 Test Item Value Reference Range Interpretation Comments HIV 1/2 4TH GEN, RFLX CONF (test NON-REACTIVE code = 3514) VITAMIN D, 25 [id number] 00:00:00 Test Item Value Reference Range Interpretation Comments VITAMIN D, 25 OH (test code = 4958) 18 NG/ML VITAMIN D, 25 [id number] 00:00:00 Test Item Value Reference Range Interpretation Comments VITAMIN D, 25 OH (test code = 4958) 18 NG/ML MICROALBUMIN, [id number] 00:00:00 Test Item Value Reference Range Interpretation Comments ALBUMIN, URINE, RANDOM (test code 10.2 MG/DL = 05222) MICROALBUMIN, [id number] 00:00:00 Test Item Value Reference Range Interpretation Comments ALBUMIN, URINE, RANDOM (test code 10.2 MG/DL = 33539) HIV AB/AG COMBO RFLX [id number] 00:00:00 Test Item Value Reference Range Interpretation Comments HIV 1/2 4TH GEN, RFLX CONF (test NON-REACTIVE code = 3514) HIV AB/AG COMBO RFLX [id number] 00:00:00 Test Item Value Reference Range Interpretation Comments HIV 1/2 4TH GEN, RFLX CONF (test NON-REACTIVE code = 3514) VITAMIN D, 25 [id number] 00:00:00 Test Item Value Reference Range Interpretation Comments VITAMIN D, 25 OH (test code = 4958) 18 NG/ML VITAMIN D, 25 [id number] 00:00:00 Test Item Value Reference Range Interpretation Comments VITAMIN D, 25 OH (test code = 4958) 18 NG/ML MICROALBUMIN, [id number] 00:00:00 Test Item Value Reference Range Interpretation Comments ALBUMIN, URINE, RANDOM (test code 10.2 MG/DL = 28788) MICROALBUMIN, [id number] 00:00:00 Test Item Value Reference Range Interpretation Comments ALBUMIN, URINE, RANDOM (test code 10.2 MG/DL = 23193) HIV AB/AG COMBO RFLX [id number] 00:00:00 Test Item Value Reference Range Interpretation Comments HIV 1/2 4TH GEN, RFLX CONF (test NON-REACTIVE code = 3514) HIV AB/AG COMBO RFLX [id number] 00:00:00 Test Item Value Reference Range Interpretation Comments HIV 1/2 4TH GEN, RFLX CONF (test NON-REACTIVE code = 3514) VITAMIN D, 25 [id number] 00:00:00 Test Item Value Reference Range Interpretation Comments VITAMIN D, 25 OH (test code = 4958) 18 NG/ML VITAMIN D, 25 [id number] 00:00:00 Test Item Value Reference Range Interpretation Comments VITAMIN D, 25 OH (test code = 4958) 18 NG/ML MICROALBUMIN, [id number] 00:00:00 Test Item Value Reference Range Interpretation Comments ALBUMIN, URINE, RANDOM (test code 10.2 MG/DL = 91262) MICROALBUMIN, [id number] 00:00:00 Test Item Value Reference Range Interpretation Comments ALBUMIN, URINE, RANDOM (test code 10.2 MG/DL = 77641) HIV AB/AG COMBO RFLX [id number] 00:00:00 Test Item Value Reference Range Interpretation Comments HIV 1/2 4TH GEN, RFLX CONF (test NON-REACTIVE code = 3514) HIV AB/AG COMBO RFLX [id number] 00:00:00 Test Item Value Reference Range Interpretation Comments HIV 1/2 4TH GEN, RFLX CONF (test NON-REACTIVE code = 3514) VITAMIN D, 25 [id number] 00:00:00 Test Item Value Reference Range Interpretation Comments VITAMIN D, 25 OH (test code = 4958) 18 NG/ML VITAMIN D, 25 [id number] 00:00:00 Test Item Value Reference Range Interpretation Comments VITAMIN D, 25 OH (test code = 4958) 18 NG/ML MICROALBUMIN, [id number] 00:00:00 Test Item Value Reference Range Interpretation Comments ALBUMIN, URINE, RANDOM (test code 10.2 MG/DL = 99770) MICROALBUMIN, [id number] 00:00:00 Test Item Value Reference Range Interpretation Comments ALBUMIN, URINE, RANDOM (test code 10.2 MG/DL = 16887) HIV AB/AG COMBO RFLX [id number] 00:00:00 Test Item Value Reference Range Interpretation Comments HIV 1/2 4TH GEN, RFLX CONF (test NON-REACTIVE code = 3514) HIV AB/AG COMBO RFLX [id number] 00:00:00 Test Item Value Reference Range Interpretation Comments HIV 1/2 4TH GEN, RFLX CONF (test NON-REACTIVE code = 3514) VITAMIN D, 25 [id number] 00:00:00 Test Item Value Reference Range Interpretation Comments VITAMIN D, 25 OH (test code = 4958) 18 NG/ML VITAMIN D, 25 [id number] 00:00:00 Test Item Value Reference Range Interpretation Comments VITAMIN D, 25 OH (test code = 4958) 18 NG/ML MICROALBUMIN, [id number] 00:00:00 Test Item Value Reference Range Interpretation Comments ALBUMIN, URINE, RANDOM (test code 10.2 MG/DL = 61257) MICROALBUMIN, [id number] 00:00:00 Test Item Value Reference Range Interpretation Comments ALBUMIN, URINE, RANDOM (test code 10.2 MG/DL = 57173) HIV AB/AG COMBO RFLX [id number] 00:00:00 Test Item Value Reference Range Interpretation Comments HIV 1/2 4TH GEN, RFLX CONF (test NON-REACTIVE code = 3514) HIV AB/AG COMBO RFLX [id number] 00:00:00 Test Item Value Reference Range Interpretation Comments HIV 1/2 4TH GEN, RFLX CONF (test NON-REACTIVE code = 3514) VITAMIN D, 25 [id number] 00:00:00 Test Item Value Reference Range Interpretation Comments VITAMIN D, 25 OH (test code = 4958) 18 NG/ML VITAMIN D, 25 [id number] 00:00:00 Test Item Value Reference Range Interpretation Comments VITAMIN D, 25 OH (test code = 4958) 18 NG/ML MICROALBUMIN, [id number] 00:00:00 Test Item Value Reference Range Interpretation Comments ALBUMIN, URINE, RANDOM (test code 10.2 MG/DL = 77453) HIV AB/AG COMBO RFLX [id number] 00:00:00 Test Item Value Reference Range Interpretation Comments HIV 1/2 4TH GEN, RFLX CONF (test NON-REACTIVE code = 3514) MICROALBUMIN, [id number] 00:00:00 Test Item Value Reference Range Interpretation Comments ALBUMIN, URINE, RANDOM (test code 10.2 MG/DL = 67183) MICROALBUMIN, [id number] 00:00:00 Test Item Value Reference Range Interpretation Comments ALBUMIN, URINE, RANDOM (test code 10.2 MG/DL = 85320) HIV AB/AG COMBO RFLX [id number] 00:00:00 Test Item Value Reference Range Interpretation Comments HIV 1/2 4TH GEN, RFLX CONF (test NON-REACTIVE code = 3514) HIV AB/AG COMBO RFLX [id number] 00:00:00 Test Item Value Reference Range Interpretation Comments HIV 1/2 4TH GEN, RFLX CONF (test NON-REACTIVE code = 3514) VITAMIN D, 25 [id number] 00:00:00 Test Item Value Reference Range Interpretation Comments VITAMIN D, 25 OH (test code = 4958) 18 NG/ML VITAMIN D, 25 [id number] 00:00:00 Test Item Value Reference Range Interpretation Comments VITAMIN D, 25 OH (test code = 4958) 18 NG/ML VITAMIN D, 25 [id number] 00:00:00 Test Item Value Reference Range Interpretation Comments VITAMIN D, 25 OH (test code = 4958) 18 NG/ML MICROALBUMIN, [id number] 00:00:00 Test Item Value Reference Range Interpretation Comments ALBUMIN, URINE, RANDOM (test code 10.2 MG/DL = 26957) MICROALBUMIN, [id number] 00:00:00 Test Item Value Reference Range Interpretation Comments ALBUMIN, URINE, RANDOM (test code 10.2 MG/DL = 32048) HIV AB/AG COMBO RFLX [id number] 00:00:00 Test Item Value Reference Range Interpretation Comments HIV 1/2 4TH GEN, RFLX CONF (test NON-REACTIVE code = 3514) HIV AB/AG COMBO RFLX [id number] 00:00:00 Test Item Value Reference Range Interpretation Comments HIV 1/2 4TH GEN, RFLX CONF (test NON-REACTIVE code = 3514) VITAMIN D, 25 [id number] 00:00:00 Test Item Value Reference Range Interpretation Comments VITAMIN D, 25 OH (test code = 4958) 18 NG/ML VITAMIN D, 25 [id number] 00:00:00 Test Item Value Reference Range Interpretation Comments VITAMIN D, 25 OH (test code = 4958) 18 NG/ML MICROALBUMIN, [id number] 00:00:00 Test Item Value Reference Range Interpretation Comments ALBUMIN, URINE, RANDOM (test code 10.2 MG/DL = 72808) MICROALBUMIN, [id number] 00:00:00 Test Item Value Reference Range Interpretation Comments ALBUMIN, URINE, RANDOM (test code 10.2 MG/DL = 47370) HIV AB/AG COMBO RFLX [id number] 00:00:00 Test Item Value Reference Range Interpretation Comments HIV 1/2 4TH GEN, RFLX CONF (test NON-REACTIVE code = 3514) HIV AB/AG COMBO RFLX [id number] 00:00:00 Test Item Value Reference Range Interpretation Comments HIV 1/2 4TH GEN, RFLX CONF (test NON-REACTIVE code = 3514) VITAMIN D, 25 [id number] 00:00:00 Test Item Value Reference Range Interpretation Comments VITAMIN D, 25 OH (test code = 4958) 18 NG/ML VITAMIN D, 25 [id number] 00:00:00 Test Item Value Reference Range Interpretation Comments VITAMIN D, 25 OH (test code = 4958) 18 NG/ML LIPID [id number] 02:15:07 Test Item Value Reference Range Interpretation [...] MOREINFORMATION , SEE CLIENT ANNOUNCE MENT AT [email or web address]/ CalcLDL-C RISK RATIO LDL/HDL (NOTE) RATIO <3.22 UNABLE T O CALCULATE (test code = 2237) COMPREHENSIVE METABOLIC [id number] 02:15:07 Test Item Value Reference Range Interpretation Comments GLUCOSE (test code = 349 MG/DL 70-99 H 2216) BUN (test code = 17 MG/DL 6-20 2207) CREATININE (test 0.80 MG/DL 0.60-1.30 code = 221) eGFR (2020 CKD-EPI) 94 ML/MIN/1.73 >60 (test code = 11274) CALC BUN/CREAT (test 21 RATIO 6-28 code = 2235) SODIUM (test code = 137 MEQ/L 296-994 1784) POTASSIUM (test code 4.2 MEQ/L 3.5-5.4 = [...] code = 39 U/L 5-40 2218) LIPID [id number] 00:00:00 Test Item Value Reference Range Interpretation Comments CHOLESTEROL (test code = 2210) 206 MG/DL TRIGLYCERIDES (test code = 2232) 1120 MG/DL HDL CHOLESTEROL (test code = 24 MG/DL 2220) CALC LDL CHOL (test code = 2237) (NOTE) MG/DL RISK RATIO LDL/HDL (test code = (NOTE) RATIO 2238) LIPID [id number] 00:00:00 Test Item Value Reference Range Interpretation Comments CHOLESTEROL (test code = 2210) 206 MG/DL TRIGLYCERIDES (test code = 2232) 1120 MG/DL HDL CHOLESTEROL (test code = 24 MG/DL 2220) CALC LDL CHOL (test code = 2237) (NOTE) MG/DL RISK RATIO LDL/HDL (test code = (NOTE) RATIO 2238) COMPREHENSIVE METABOLIC [id number] 00:00:00 Test Item Value Reference Range Interpretation Comments GLUCOSE (test code = 2217) 349 MG/DL BUN (test code = 2208) 17 MG/DL CREATININE (test code = 2214) 0.80 MG/DL eGFR (2020 CKD-EPI) (test code 94 ML/MIN/1.73 = 24170) CALC BUN/CREAT (test code = 21 RATIO [...] code = 2219) 39 U/L COMPREHENSIVE METABOLIC [id number] 00:00:00 Test Item Value Reference Range Interpretation Comments GLUCOSE (test code = 2217) 349 MG/DL BUN (test code = 2208) 17 MG/DL CREATININE (test code = 2214) 0.80 MG/DL eGFR (2020 CKD-EPI) (test code 94 ML/MIN/1.73 = 58793) CALC BUN/CREAT (test code = 21 RATIO [...] (test code = 2219) 39 U/L LIPID [id number] 00:00:00 Test Item Value Reference Range Interpretation Comments CHOLESTEROL (test code = 2210) 206 MG/DL TRIGLYCERIDES (test code = 2232) 1120 MG/DL HDL CHOLESTEROL (test code = 24 MG/DL 2220) CALC LDL CHOL (test code = 2237) (NOTE) MG/DL RISK RATIO LDL/HDL (test code = (NOTE) RATIO 2238) LIPID [id number] 00:00:00 Test Item Value Reference Range Interpretation Comments CHOLESTEROL (test code = 2210) 206 MG/DL TRIGLYCERIDES (test code = 2232) 1120 MG/DL HDL CHOLESTEROL (test code = 24 MG/DL 2220) CALC LDL CHOL (test code = 2237) (NOTE) MG/DL RISK RATIO LDL/HDL (test code = (NOTE) RATIO 2238) COMPREHENSIVE METABOLIC [id number] 00:00:00 Test Item Value Reference Range Interpretation Comments GLUCOSE (test code = 2217) 349 MG/DL BUN (test code = 2208) 17 MG/DL CREATININE (test code = 2214) 0.80 MG/DL eGFR (2020 CKD-EPI) (test code 94 ML/MIN/1.73 = 51820) CALC BUN/CREAT (test code = 21 RATIO [...] code = 2219) 39 U/L COMPREHENSIVE METABOLIC [id number] 00:00:00 Test Item Value Reference Range Interpretation Comments GLUCOSE (test code = 2217) 349 MG/DL BUN (test code = 2208) 17 MG/DL CREATININE (test code = 2214) 0.80 MG/DL eGFR (2020 CKD-EPI) (test code 94 ML/MIN/1.73 = 19379) CALC BUN/CREAT (test code = 21 RATIO [...] (test code = 2219) 39 U/L LIPID [id number] 00:00:00 Test Item Value Reference Range Interpretation Comments CHOLESTEROL (test code = 2210) 206 MG/DL TRIGLYCERIDES (test code = 2232) 1120 MG/DL HDL CHOLESTEROL (test code = 24 MG/DL 2220) CALC LDL CHOL (test code = 2237) (NOTE) MG/DL RISK RATIO LDL/HDL (test code = (NOTE) RATIO 2238) LIPID [id number] 00:00:00 Test Item Value Reference Range Interpretation Comments CHOLESTEROL (test code = 2210) 206 MG/DL TRIGLYCERIDES (test code = 2232) 1120 MG/DL HDL CHOLESTEROL (test code = 24 MG/DL 2220) CALC LDL CHOL (test code = 2237) (NOTE) MG/DL RISK RATIO LDL/HDL (test code = (NOTE) RATIO 2238) COMPREHENSIVE METABOLIC [id number] 00:00:00 Test Item Value Reference Range Interpretation Comments GLUCOSE (test code = 2217) 349 MG/DL BUN (test code = 2208) 17 MG/DL CREATININE (test code = 2214) 0.80 MG/DL eGFR (2020 CKD-EPI) (test code 94 ML/MIN/1.73 = 01996) CALC BUN/CREAT (test code = 21 RATIO [...] code = 2219) 39 U/L COMPREHENSIVE METABOLIC [id number] 00:00:00 Test Item Value Reference Range Interpretation Comments GLUCOSE (test code = 2217) 349 MG/DL BUN (test code = 2208) 17 MG/DL CREATININE (test code = 2214) 0.80 MG/DL eGFR (2020 CKD-EPI) (test code 94 ML/MIN/1.73 = 13394) CALC BUN/CREAT (test code = 21 RATIO [...] (test code = 2219) 39 U/L LIPID [id number] 00:00:00 Test Item Value Reference Range Interpretation Comments CHOLESTEROL (test code = 2210) 206 MG/DL TRIGLYCERIDES (test code = 2232) 1120 MG/DL HDL CHOLESTEROL (test code = 24 MG/DL 2220) CALC LDL CHOL (test code = 2237) (NOTE) MG/DL RISK RATIO LDL/HDL (test code = (NOTE) RATIO 2238) LIPID [id number] 00:00:00 Test Item Value Reference Range Interpretation Comments CHOLESTEROL (test code = 2210) 206 MG/DL TRIGLYCERIDES (test code = 2232) 1120 MG/DL HDL CHOLESTEROL (test code = 24 MG/DL 2220) CALC LDL CHOL (test code = 2237) (NOTE) MG/DL RISK RATIO LDL/HDL (test code = (NOTE) RATIO 2238) COMPREHENSIVE METABOLIC [id number] 00:00:00 Test Item Value Reference Range Interpretation Comments GLUCOSE (test code = 2217) 349 MG/DL BUN (test code = 2208) 17 MG/DL CREATININE (test code = 2214) 0.80 MG/DL eGFR (2020 CKD-EPI) (test code 94 ML/MIN/1.73 = 85296) CALC BUN/CREAT (test code = 21 RATIO [...] code = 2219) 39 U/L COMPREHENSIVE METABOLIC [id number] 00:00:00 Test Item Value Reference Range Interpretation Comments GLUCOSE (test code = 2217) 349 MG/DL BUN (test code = 2208) 17 MG/DL CREATININE (test code = 2214) 0.80 MG/DL eGFR (2020 CKD-EPI) (test code 94 ML/MIN/1.73 = 66626) CALC BUN/CREAT (test code = 21 RATIO [...] (test code = 2219) 39 U/L LIPID [id number] 00:00:00 Test Item Value Reference Range Interpretation Comments CHOLESTEROL (test code = 2210) 206 MG/DL TRIGLYCERIDES (test code = 2232) 1120 MG/DL HDL CHOLESTEROL (test code = 24 MG/DL 0) CALC LDL CHOL (test code = 2237) (NOTE) MG/DL RISK RATIO LDL/HDL (test code = (NOTE) RATIO 2238) LIPID [id number] 00:00:00 Test Item Value Reference Range Interpretation Comments CHOLESTEROL (test code = 2210) 206 MG/DL TRIGLYCERIDES (test code = 2232) 1120 MG/DL HDL CHOLESTEROL (test code = 24 MG/DL 2220) CALC LDL CHOL (test code = 2237) (NOTE) MG/DL RISK RATIO LDL/HDL (test code = (NOTE) RATIO 2238) COMPREHENSIVE METABOLIC [id number] 00:00:00 Test Item Value Reference Range Interpretation Comments GLUCOSE (test code = 2217) 349 MG/DL BUN (test code = 2208) 17 MG/DL CREATININE (test code = 2214) 0.80 MG/DL eGFR (2020 CKD-EPI) (test code 94 ML/MIN/1.73 = 79891) CALC BUN/CREAT (test code = 21 RATIO [...] code = 2219) 39 U/L COMPREHENSIVE METABOLIC [id number] 00:00:00 Test Item Value Reference Range Interpretation Comments GLUCOSE (test code = 2217) 349 MG/DL BUN (test code = 2208) 17 MG/DL CREATININE (test code = 2214) 0.80 MG/DL eGFR (2020 CKD-EPI) (test code 94 ML/MIN/1.73 = 03117) CALC BUN/CREAT (test code = 21 RATIO 2235) SODIUM (test code = 2231) 137 MEQ/L POTASSIUM (test code = 2228) 4.2 MEQ/L CHLORIDE (test code = 2215) 99 MEQ/L CARBON DIOXIDE (test code = 16 MEQ/L 2205) CALCIUM (test code = 220) 10.0 MG/DL PROTEIN, TOTAL (test code = [...] (test code = 2219) 39 U/L LIPID [id number] 00:00:00 Test Item Value Reference Range Interpretation Comments CHOLESTEROL (test code = 2210) 206 MG/DL TRIGLYCERIDES (test code = 2232) 1120 MG/DL HDL CHOLESTEROL (test code = 24 MG/DL 2220) CALC LDL CHOL (test code = 2237) (NOTE) MG/DL RISK RATIO LDL/HDL (test code = (NOTE) RATIO 2238) LIPID [id number] 00:00:00 Test Item Value Reference Range Interpretation Comments CHOLESTEROL (test code = 2210) 206 MG/DL TRIGLYCERIDES (test code = 2232) 1120 MG/DL HDL CHOLESTEROL (test code = 24 MG/DL 2220) CALC LDL CHOL (test code = 2237) (NOTE) MG/DL RISK RATIO LDL/HDL (test code = (NOTE) RATIO 2238) COMPREHENSIVE METABOLIC [id number] 00:00:00 Test Item Value Reference Range Interpretation Comments GLUCOSE (test code = 2217) 349 MG/DL BUN (test code = 2208) 17 MG/DL CREATININE (test code = 2214) 0.80 MG/DL eGFR (2020 CKD-EPI) (test code 94 ML/MIN/1.73 = 81052) CALC BUN/CREAT (test code = 21 RATIO [...] code = 2219) 39 U/L COMPREHENSIVE METABOLIC [id number] 00:00:00 Test Item Value Reference Range Interpretation Comments GLUCOSE (test code = 2217) 349 MG/DL BUN (test code = 2208) 17 MG/DL CREATININE (test code = 2214) 0.80 MG/DL eGFR (2020 CKD-EPI) (test code 94 ML/MIN/1.73 = 54825) CALC BUN/CREAT (test code = 21 RATIO [...] (test code = 2219) 39 U/L LIPID [id number] 00:00:00 Test Item Value Reference Range Interpretation Comments CHOLESTEROL (test code = 2210) 206 MG/DL TRIGLYCERIDES (test code = 2232) 1120 MG/DL HDL CHOLESTEROL (test code = 24 MG/DL 0) CALC LDL CHOL (test code = 2237) (NOTE) MG/DL RISK RATIO LDL/HDL (test code = (NOTE) RATIO 2238) LIPID [id number] 00:00:00 Test Item Value Reference Range Interpretation Comments CHOLESTEROL (test code = 2210) 206 MG/DL TRIGLYCERIDES (test code = 2232) 1120 MG/DL HDL CHOLESTEROL (test code = 24 MG/DL 2220) CALC LDL CHOL (test code = 2237) (NOTE) MG/DL RISK RATIO LDL/HDL (test code = (NOTE) RATIO 2238) COMPREHENSIVE METABOLIC [id number] 00:00:00 Test Item Value Reference Range Interpretation Comments GLUCOSE (test code = 2217) 349 MG/DL BUN (test code = 2208) 17 MG/DL CREATININE (test code = 2214) 0.80 MG/DL eGFR (2020 CKD-EPI) (test code 94 ML/MIN/1.73 = 09106) CALC BUN/CREAT (test code = 21 RATIO [...] code = 2219) 39 U/L COMPREHENSIVE METABOLIC [id number] 00:00:00 Test Item Value Reference Range Interpretation Comments GLUCOSE (test code = 2217) 349 MG/DL BUN (test code = 2208) 17 MG/DL CREATININE (test code = 2214) 0.80 MG/DL eGFR (2020 CKD-EPI) (test code 94 ML/MIN/1.73 = 30076) CALC BUN/CREAT (test code = 21 RATIO [...] (test code = 2219) 39 U/L LIPID [id number] 00:00:00 Test Item Value Reference Range Interpretation Comments CHOLESTEROL (test code = 2210) 206 MG/DL TRIGLYCERIDES (test code = 2232) 1120 MG/DL HDL CHOLESTEROL (test code = 24 MG/DL 2219) CALC LDL CHOL (test code = 2237) (NOTE) MG/DL RISK RATIO LDL/HDL (test code = (NOTE) RATIO 2238) COMPREHENSIVE METABOLIC [id number] 00:00:00 Test Item Value Reference Range Interpretation Comments GLUCOSE (test code = 7) 349 MG/DL BUN (test code = 2208) 17 MG/DL CREATININE (test code = 2214) 0.80 MG/DL eGFR (2020 CKD-EPI) (test code 94 ML/MIN/1.73 = 65908) CALC BUN/CREAT (test code = 21 RATIO [...] (test code = 2219) 39 U/L LIPID [id number] 00:00:00 Test Item Value Reference Range Interpretation Comments CHOLESTEROL (test code = 2210) 206 MG/DL TRIGLYCERIDES (test code = 2232) 1120 MG/DL HDL CHOLESTEROL (test code = 24 MG/DL 2220) CALC LDL CHOL (test code = 2237) (NOTE) MG/DL RISK RATIO LDL/HDL (test code = (NOTE) RATIO 2238) LIPID [id number] 00:00:00 Test Item Value Reference Range Interpretation Comments CHOLESTEROL (test code = 2210) 206 MG/DL TRIGLYCERIDES (test code = 2232) 1120 MG/DL HDL CHOLESTEROL (test code = 24 MG/DL 2220) CALC LDL CHOL (test code = 2237) (NOTE) MG/DL RISK RATIO LDL/HDL (test code = (NOTE) RATIO 2238) COMPREHENSIVE METABOLIC [id number] 00:00:00 Test Item Value Reference Range Interpretation Comments GLUCOSE (test code = 2217) 349 MG/DL BUN (test code = 2208) 17 MG/DL CREATININE (test code = 2214) 0.80 MG/DL eGFR (2020 CKD-EPI) (test code 94 ML/MIN/1.73 = 34400) CALC BUN/CREAT (test code = 21 RATIO [...] code = 2219) 39 U/L COMPREHENSIVE METABOLIC [id number] 00:00:00 Test Item Value Reference Range Interpretation Comments GLUCOSE (test code = 2217) 349 MG/DL BUN (test code = 2208) 17 MG/DL CREATININE (test code = 2214) 0.80 MG/DL eGFR (2020 CKD-EPI) (test code 94 ML/MIN/1.73 = 85806) CALC BUN/CREAT (test code = 21 RATIO [...] (test code = 2219) 39 U/L LIPID [id number] 00:00:00 Test Item Value Reference Range Interpretation Comments CHOLESTEROL (test code = 2210) 206 MG/DL TRIGLYCERIDES (test code = 2232) 1120 MG/DL HDL CHOLESTEROL (test code = 24 MG/DL 2220) CALC LDL CHOL (test code = 2237) (NOTE) MG/DL RISK RATIO LDL/HDL (test code = (NOTE) RATIO 2238) LIPID [id number] 00:00:00 Test Item Value Reference Range Interpretation Comments CHOLESTEROL (test code = 2210) 206 MG/DL TRIGLYCERIDES (test code = 2232) 1120 MG/DL HDL CHOLESTEROL (test code = 24 MG/DL 2220) CALC LDL CHOL (test code = 2237) (NOTE) MG/DL RISK RATIO LDL/HDL (test code = (NOTE) RATIO 2238) COMPREHENSIVE METABOLIC [id number] 00:00:00 Test Item Value Reference Range Interpretation Comments GLUCOSE (test code = 2217) 349 MG/DL BUN (test code = 2208) 17 MG/DL CREATININE (test code = 2214) 0.80 MG/DL eGFR (2020 CKD-EPI) (test code 94 ML/MIN/1.73 = 07231) CALC BUN/CREAT (test code = 21 RATIO [...] code = 2219) 39 U/L COMPREHENSIVE METABOLIC [id number] 00:00:00 Test Item Value Reference Range Interpretation Comments GLUCOSE (test code = 2217) 349 MG/DL BUN (test code = 2208) 17 MG/DL CREATININE (test code = 2214) 0.80 MG/DL eGFR (2020 CKD-EPI) (test code 94 ML/MIN/1.73 = 07875) CALC BUN/CREAT (test code = 21 RATIO [...] (test code = 2219) 39 U/L LIPID [id number] 00:00:00 Test Item Value Reference Range Interpretation Comments CHOLESTEROL (test code = 2210) 206 MG/DL TRIGLYCERIDES (test code = 2232) 1120 MG/DL HDL CHOLESTEROL (test code = 24 MG/DL 2220) CALC LDL CHOL (test code = 2237) (NOTE) MG/DL RISK RATIO LDL/HDL (test code = (NOTE) RATIO 2238) LIPID [id number] 00:00:00 Test Item Value Reference Range Interpretation Comments CHOLESTEROL (test code = 2210) 206 MG/DL TRIGLYCERIDES (test code = 2232) 1120 MG/DL HDL CHOLESTEROL (test code = 24 MG/DL 2220) CALC LDL CHOL (test code = 2237) (NOTE) MG/DL RISK RATIO LDL/HDL (test code = (NOTE) RATIO 2238) COMPREHENSIVE METABOLIC [id number] 00:00:00 Test Item Value Reference Range Interpretation Comments GLUCOSE (test code = 2217) 349 MG/DL BUN (test code = 2208) 17 MG/DL CREATININE (test code = 2214) 0.80 MG/DL eGFR (2020 CKD-EPI) (test code 94 ML/MIN/1.73 = 54680) CALC BUN/CREAT (test code = 21 RATIO [...] code = 2219) 39 U/L COMPREHENSIVE METABOLIC [id number] 00:00:00 Test Item Value Reference Range Interpretation Comments GLUCOSE (test code = 2217) 349 MG/DL BUN (test code = 2208) 17 MG/DL CREATININE (test code = 2214) 0.80 MG/DL eGFR (2020 CKD-EPI) (test code 94 ML/MIN/1.73 = 36613) CALC BUN/CREAT (test code = 21 RATIO [...] (test code = 2219) 39 U/L HEMOGLOBIN [id number] 04:43:57 Test Item Value Reference Range Interpretation Comments HEMOGLOBIN A1c (test 11.5 % 4.2-5.6 H [employer] DIABETES code = 98089) ASSOCIATION IDELINES FOR HGB A1C: PREDIABETES/INC REASED [...] ATE TESTING OR LABORATORY C ONSULTATION. HEMOGLOBIN [id number] 00:00:00 Test Item Value Reference Range Interpretation Comments HEMOGLOBIN A1c (test code = 97309) 11.5 % HEMOGLOBIN [id number] 00:00:00 Test Item Value Reference Range Interpretation Comments HEMOGLOBIN A1c (test code = 56414) 11.5 % HEMOGLOBIN [id number] 00:00:00 Test Item Value Reference Range Interpretation Comments HEMOGLOBIN A1c (test code = 14836) 11.5 % HEMOGLOBIN [id number] 00:00:00 Test Item Value Reference Range Interpretation Comments HEMOGLOBIN A1c (test code = 60278) 11.5 % HEMOGLOBIN [id number] 00:00:00 Test Item Value Reference Range Interpretation Comments HEMOGLOBIN A1c (test code = 64049) 11.5 % HEMOGLOBIN [id number] 00:00:00 Test Item Value Reference Range Interpretation Comments HEMOGLOBIN A1c (test code = 92970) 11.5 % HEMOGLOBIN [id number] 00:00:00 Test Item Value Reference Range Interpretation Comments HEMOGLOBIN A1c (test code = 40450) 11.5 % HEMOGLOBIN [id number] 00:00:00 Test Item Value Reference Range Interpretation Comments HEMOGLOBIN A1c (test code = 55590) 11.5 % HEMOGLOBIN [id number] 00:00:00 Test Item Value Reference Range Interpretation Comments HEMOGLOBIN A1c (test code = 07380) 11.5 % HEMOGLOBIN [id number] 00:00:00 Test Item Value Reference Range Interpretation Comments HEMOGLOBIN A1c (test code = 67562) 11.5 % HEMOGLOBIN [id number] 00:00:00 Test Item Value Reference Range Interpretation Comments HEMOGLOBIN A1c (test code = 39446) 11.5 % HEMOGLOBIN [id number] 00:00:00 Test Item Value Reference Range Interpretation Comments HEMOGLOBIN A1c (test code = 19667) 11.5 % HEMOGLOBIN [id number] 00:00:00 Test Item Value Reference Range Interpretation Comments HEMOGLOBIN A1c (test code = 43963) 11.5 % HEMOGLOBIN [id number] 00:00:00 Test Item Value Reference Range Interpretation Comments HEMOGLOBIN A1c (test code = 51513) 11.5 % HEMOGLOBIN [id number] 00:00:00 Test Item Value Reference Range Interpretation Comments HEMOGLOBIN A1c (test code = 37517) 11.5 % HEMOGLOBIN [id number] 00:00:00 Test Item Value Reference Range Interpretation Comments HEMOGLOBIN A1c (test code = 26281) 11.5 % HEMOGLOBIN [id number] 00:00:00 Test Item Value Reference Range Interpretation Comments HEMOGLOBIN A1c (test code = 21032) 11.5 % HEMOGLOBIN [id number] 00:00:00 Test Item Value Reference Range Interpretation Comments HEMOGLOBIN A1c (test code = 21676) 11.5 % HEMOGLOBIN [id number] 00:00:00 Test Item Value Reference Range Interpretation Comments HEMOGLOBIN A1c (test code = 37710) 11.5 % HEMOGLOBIN [id number] 00:00:00 Test Item Value Reference Range Interpretation Comments HEMOGLOBIN A1c (test code = 83390) 11.5 % HEMOGLOBIN [id number] 00:00:00 Test Item Value Reference Range Interpretation Comments HEMOGLOBIN A1c (test code = 76836) 11.5 % HEMOGLOBIN [id number] 00:00:00 Test Item Value Reference Range Interpretation Comments HEMOGLOBIN A1c (test code = 27309) 11.5 % HEMOGLOBIN [id number] 00:00:00 Test Item Value Reference Range Interpretation Comments HEMOGLOBIN A1c (test code = 14429) 11.5 % HEMOGLOBIN [id number] 00:00:00 Test Item Value Reference Range Interpretation Comments HEMOGLOBIN A1c (test code = 67848) 11.5 % HEMOGLOBIN [id number] 00:00:00 Test Item Value Reference Range Interpretation Comments HEMOGLOBIN A1c (test code = 29686) 11.5 % HEMOGLOBIN [id number] 00:00:00 Test Item Value Reference Range Interpretation Comments HEMOGLOBIN A1c (test code = 54666) 11.5 % HEMOGLOBIN [id number] 00:00:00 Test Item Value Reference Range Interpretation Comments HEMOGLOBIN A1c (test code = 20866) 11.5 % HEMOGLOBIN [id number] 00:00:00 Test Item Value Reference Range Interpretation Comments HEMOGLOBIN A1c (test code = 08390) 11.5 % HEMOGLOBIN [id number] 00:00:00 Test Item Value Reference Range Interpretation Comments HEMOGLOBIN A1c (test code = 29658) 11.5 % HEMOGLOBIN [id number] 00:00:00 Test Item Value Reference Range Interpretation Comments HEMOGLOBIN A1c (test code = 18265) 11.5 % HEMOGLOBIN [id number] 00:00:00 Test Item Value Reference Range Interpretation Comments HEMOGLOBIN A1c (test code = 52099) 11.5 % HEMOGLOBIN [id number] 00:00:00 Test Item Value Reference Range Interpretation Comments HEMOGLOBIN A1c (test code = 05654) 11.5 % CULTURE, [id number] 11:34:56SPECIMEN NUMBER: [id number] CULTURE, URINE SPECIMEN NUMBER: [id number] SPECIMEN COMMENT: URINE SOURCE:URINE REPORT STATUS: FINAL FINAL REPORT: 10/25/2021 10-50,000 CFU/ML UROGENITAL NORMA PRESENT NO COMM ON PATHOGENSCULTURE, [id number] 00:00:00 Test Item Value Reference Range Interpretation Comments CULTURE, URINE (test SPECIMEN NUMBER: code = 30964) [id number] CULTURE, [id number] 00:00:00 Test Item Value Reference Range Interpretation Comments CULTURE, URINE (test SPECIMEN NUMBER: code = 49598) [id number] CULTURE, [id number] 00:00:00 Test Item Value Reference Range Interpretation Comments CULTURE, URINE (test SPECIMEN NUMBER: code = 32685) [id number] CULTURE, [id number] 00:00:00 Test Item Value Reference Range Interpretation Comments CULTURE, URINE (test SPECIMEN NUMBER: code = 92288) [id number] CULTURE, [id number] 00:00:00 Test Item Value Reference Range Interpretation Comments CULTURE, URINE (test SPECIMEN NUMBER: code = 34526) [id number] CULTURE, [id number] 00:00:00 Test Item Value Reference Range Interpretation Comments CULTURE, URINE (test SPECIMEN NUMBER: code = 57128) [id number] CULTURE, [id number] 00:00:00 Test Item Value Reference Range Interpretation Comments CULTURE, URINE (test SPECIMEN NUMBER: code = 49623) [id number] CULTURE, [id number] 00:00:00 Test Item Value Reference Range Interpretation Comments CULTURE, URINE (test SPECIMEN NUMBER: code = 44533) [id number] CULTURE, [id number] 00:00:00 Test Item Value Reference Range Interpretation Comments CULTURE, URINE (test SPECIMEN NUMBER: code = 04026) [id number] CULTURE, [id number] 00:00:00 Test Item Value Reference Range Interpretation Comments CULTURE, URINE (test SPECIMEN NUMBER: code = 24642) [id number] CULTURE, [id number] 00:00:00 Test Item Value Reference Range Interpretation Comments CULTURE, URINE (test SPECIMEN NUMBER: code = 28855) [id number] CULTURE, [id number] 00:00:00 Test Item Value Reference Range Interpretation Comments CULTURE, URINE (test SPECIMEN NUMBER: code = 49312) [id number] CULTURE, [id number] 00:00:00 Test Item Value Reference Range Interpretation Comments CULTURE, URINE (test SPECIMEN NUMBER: code = 26227) [id number] CULTURE, [id number] 00:00:00 Test Item Value Reference Range Interpretation Comments CULTURE, URINE (test SPECIMEN NUMBER: code = 78757) [id number] CULTURE, [id number] 00:00:00 Test Item Value Reference Range Interpretation Comments CULTURE, URINE (test SPECIMEN NUMBER: code = 04722) [id number] CULTURE, [id number] 00:00:00 Test Item Value Reference Range Interpretation Comments CULTURE, URINE (test SPECIMEN NUMBER: code = 42191) [id number] CULTURE, [id number] 00:00:00 Test Item Value Reference Range Interpretation Comments CULTURE, URINE (test SPECIMEN NUMBER: code = 85319) [id number] CULTURE, [id number] 00:00:00 Test Item Value Reference Range Interpretation Comments CULTURE, URINE (test SPECIMEN NUMBER: code = 79954) [id number] CULTURE, [id number] 00:00:00 Test Item Value Reference Range Interpretation Comments CULTURE, URINE (test SPECIMEN NUMBER: code = 14872) [id number] CULTURE, [id number] 00:00:00 Test Item Value Reference Range Interpretation Comments CULTURE, URINE (test SPECIMEN NUMBER: code = 92707) [id number] CULTURE, [id number] 00:00:00 Test Item Value Reference Range Interpretation Comments CULTURE, URINE (test SPECIMEN NUMBER: code = 39165) [id number] VAGINAL PATHOGENS DNA [id number] 11:55:20 Test Item Value Reference Range Interpretation Comments ANDIE SPECIES (test NEGATIVE NEGATIVE code = 32561) G. VAGINALIS (test NEGATIVE NEGATIVE code = 05892) T. VAGINALIS (test NEGATIVE NEGATIVE UNLESS O THERWISE code = 38252) INDICATED, ALL TESTING PERFORMED [facility] [place]. [address] [place] [address] 4 LABORATORY DIRE CTOR: NOAH TODD M.D. CLIA NUMBER [id number] [facility] [id number] VAGINAL PATHOGENS DNA [id number] 00:00:00 Test Item Value Reference Range Interpretation Comments ANDIE SPECIES (test code = 98560) NEGATIVE G. VAGINALIS (test code = 68577) NEGATIVE T. VAGINALIS (test code = 56010) NEGATIVE VAGINAL PATHOGENS DNA [id number] 00:00:00 Test Item Value Reference Range Interpretation Comments NADIE SPECIES (test code = 25843) NEGATIVE G. VAGINALIS (test code = 39477) NEGATIVE T. VAGINALIS (test code = 43556) NEGATIVE VAGINAL PATHOGENS DNA [id number] 00:00:00 Test Item Value Reference Range Interpretation Comments ANDIE SPECIES (test code = 57225) NEGATIVE G. VAGINALIS (test code = 67476) NEGATIVE T. VAGINALIS (test code = 08633) NEGATIVE VAGINAL PATHOGENS DNA [id number] 00:00:00 Test Item Value Reference Range Interpretation Comments ANDIE SPECIES (test code = 49247) NEGATIVE G. VAGINALIS (test code = 34253) NEGATIVE T. VAGINALIS (test code = 29342) NEGATIVE VAGINAL PATHOGENS DNA [id number] 00:00:00 Test Item Value Reference Range Interpretation Comments ANDIE SPECIES (test code = 16046) NEGATIVE G. VAGINALIS (test code = 95429) NEGATIVE T. VAGINALIS (test code = 55087) NEGATIVE VAGINAL PATHOGENS DNA [id number] 00:00:00 Test Item Value Reference Range Interpretation Comments ANDIE SPECIES (test code = 76960) NEGATIVE G. VAGINALIS (test code = 93362) NEGATIVE T. VAGINALIS (test code = 99654) NEGATIVE VAGINAL PATHOGENS DNA [id number] 00:00:00 Test Item Value Reference Range Interpretation Comments ANDIE SPECIES (test code = 91540) NEGATIVE G. VAGINALIS (test code = 92212) NEGATIVE T. VAGINALIS (test code = 86602) NEGATIVE VAGINAL PATHOGENS DNA [id number] 00:00:00 Test Item Value Reference Range Interpretation Comments ANDIE SPECIES (test code = 82282) NEGATIVE G. VAGINALIS (test code = 76591) NEGATIVE T. VAGINALIS (test code = 33005) NEGATIVE VAGINAL PATHOGENS DNA [id number] 00:00:00 Test Item Value Reference Range Interpretation Comments ANDIE SPECIES (test code = 15456) NEGATIVE G. VAGINALIS (test code = 80859) NEGATIVE T. VAGINALIS (test code = 32822) NEGATIVE VAGINAL PATHOGENS DNA [id number] 00:00:00 Test Item Value Reference Range Interpretation Comments ANDIE SPECIES (test code = 10860) NEGATIVE G. VAGINALIS (test code = 83628) NEGATIVE T. VAGINALIS (test code = 47881) NEGATIVE VAGINAL PATHOGENS DNA [id number] 00:00:00 Test Item Value Reference Range Interpretation Comments ANDIE SPECIES (test code = 76624) NEGATIVE G. VAGINALIS (test code = 24754) NEGATIVE T. VAGINALIS (test code = 46751) NEGATIVE VAGINAL PATHOGENS DNA [id number] 00:00:00 Test Item Value Reference Range Interpretation Comments ANDIE SPECIES (test code = 65297) NEGATIVE G. VAGINALIS (test code = 79037) NEGATIVE T. VAGINALIS (test code = 23355) NEGATIVE VAGINAL PATHOGENS DNA [id number] 00:00:00 Test Item Value Reference Range Interpretation Comments ANDIE SPECIES (test code = 56374) NEGATIVE G. VAGINALIS (test code = 56202) NEGATIVE T. VAGINALIS (test code = 40531) NEGATIVE VAGINAL PATHOGENS DNA [id number] 00:00:00 Test Item Value Reference Range Interpretation Comments ANDIE SPECIES (test code = 13241) NEGATIVE G. VAGINALIS (test code = 85181) NEGATIVE T. VAGINALIS (test code = 47839) NEGATIVE VAGINAL PATHOGENS DNA [id number] 00:00:00 Test Item Value Reference Range Interpretation Comments ANDIE SPECIES (test code = 52118) NEGATIVE G. VAGINALIS (test code = 78334) NEGATIVE T. VAGINALIS (test code = 14876) NEGATIVE VAGINAL PATHOGENS DNA [id number] 00:00:00 Test Item Value Reference Range Interpretation Comments ANDIE SPECIES (test code = 19699) NEGATIVE G. VAGINALIS (test code = 98785) NEGATIVE T. VAGINALIS (test code = 92775) NEGATIVE VAGINAL PATHOGENS DNA [id number] 00:00:00 Test Item Value Reference Range Interpretation Comments ANDIE SPECIES (test code = 76815) NEGATIVE G. VAGINALIS (test code = 63546) NEGATIVE T. VAGINALIS (test code = 24793) NEGATIVE VAGINAL PATHOGENS DNA [id number] 00:00:00 Test Item Value Reference Range Interpretation Comments ANDIE SPECIES (test code = 36436) NEGATIVE G. VAGINALIS (test code = 38580) NEGATIVE T. VAGINALIS (test code = 49855) NEGATIVE VAGINAL PATHOGENS DNA [id number] 00:00:00 Test Item Value Reference Range Interpretation Comments ANDIE SPECIES (test code = 70348) NEGATIVE G. VAGINALIS (test code = 52408) NEGATIVE T. VAGINALIS (test code = 59823) NEGATIVE VAGINAL PATHOGENS DNA [id number] 00:00:00 Test Item Value Reference Range Interpretation Comments ANDIE SPECIES (test code = 58523) NEGATIVE G. VAGINALIS (test code = 82353) NEGATIVE T. VAGINALIS (test code = 77095) NEGATIVE VAGINAL PATHOGENS DNA [id number] 00:00:00 Test Item Value Reference Range Interpretation Comments ANDIE SPECIES (test code = 91845) NEGATIVE G. VAGINALIS (test code = ) NEGATIVE T. VAGINALIS (test code = ) NEGATIVE POCT GLUCOSE (AUTOMATED)2021-10-17 01:51:54 Test Item Value Reference Range Interpretation Comments POCT GLU (test code = 5544884531) 365 mg/dL 70-110 H Lab Interpretation (test code = Abnormal 02028-5) [facility] GLUCOSE (AUTOMATED)2021-10-17 00:46:51 Test Item Value Reference Range Interpretation Comments POCT GLU (test code = 4988682562) 435 mg/dL 70-110 H Lab Interpretation (test code = Abnormal 97842-1) [facility] GLUCOSE(AGE >30DAYS)2021-10-17 00:41:00 Test Item Value Reference Range Interpretation Comments POCT Glu (age>30days) (test code = 435 mg/dL 70-110 A 3342) Lab Interpretation (test code = Abnormal 90962-8) [id number] 23:40:42 Test Item Value Reference Interpretation Comments Range TROPONIN I (test 0.001 ng/mL See_Comment [Automated code = [id number]) message] The system which generated this result [...] biotin. Lab Interpretation Normal (test code = 05182-1) [id number] 23:37:40 Test Item Value Reference Range Interpretation Comments NT-proBNP (test code 20 pg/mL See_Comment [Autom ated = [id number]) message] The system which generated this result transmitted reference range : <=125. The reference range was not used to interpret this result as normal/abnormal . CALVIN (test code = CALVIN) Biotin has been reported to cause a negative bias, interpret results relative to patient's use of biotin. Lab Interpretation Normal (test code = 04939-0) [facility]. METABOLIC PANEL (78310)2021-10-16 23:29:18 Test Item Value Reference Range Interpretation Comments NA (test code = 134 mmol/L 135-145 L [id number]) K (test code = 4.4 mmol/L 3.5-5.0 0224149444) CL (test code = 97 mmol/L 98-108 L [id number]) CO2 TOTAL (test code = 23 mmol/L 23-31 0858886147) AGAP (test code = 2-16 9717474862) BUN (test code = 21 mg/dL 7-23 7445250686) GLUCOSE (test code = 431 mg/dL 70-110 H [id number]) CREATININE (test code = 0.88 mg/dL 0.50-1.04 4871295668) TOTAL BILI (test code = 0.5 mg/dL 0.1-1.9 6951106044) CALCIUM (test code = 9.2 mg/dL 8.6-10.6 [id number]) T PROTEIN (test code = 7.4 g/dL 6.3-8.2 9991998197) ALBUMIN (test code = 4.7 g/dL 3.5-5.0 5653863437) ALK PHOS (test code = 52 U/L 34-122 7513284382) ALTv (test code = 30 U/L 5-35 1742-6) AST(SGOT) (test code = 25 U/L 13-40 9956840327) eGFR (test code = mL/min/1.73m2 8399660488) CALVIN (test code = CALVIN) Association of [...] tests). Lab Interpretation Abnormal (test code = 61168-3) [facility] WITH [id number] 23:20:10 Test Item Value Reference Range Interpretation Comments WBC (test code = See_Comment [Automated 9282-2) message] The sy stem which generated this result transmitted reference range : 4.30 - 11.10 10*3/?L. The reference range was not used to interpret this result as normal/abnormal . RBC (test code = See_Comment [Automated 310-1) message] The sy stem which generated this [...] RDW-SD (test code = 40.5 fL 39.0-49.9 29369-1) RDW-CV (test code = 13.5 % 12.0-15.5 788-0) PLT (test code = See_Comment [Automated 777-3) message] The sy stem which generated this result transmitted reference range : 166 - 358 10*3/ ?L. The reference r doretha was not used to interpret this result as normal/abnormal . MPV (test code = 9.6 fL 9.5-12.9 00164-2) NRBC/100 WBC (test See_Comment [Automat ed code = 0428995018) message] The system which generated this result transmitted reference range : 0.0 - 10.0 /100 WBCs. The refer ence range was not u sed to interpret th is result as normal/abnormal . NRBC x10^3 (test code <0.01 See_Comment [Auto mated = [id number]) message] The s ystem which generated this result transmitted reference range : 10*3/?L. The reference range was not used to interpret this result as normal/abnormal . GRAN MAT (NEUT) % 43.2 % (test code = 770-8) IMM GRAN % (test code 0.70 % = 5095375040) LYMPH % (test code = 42.8 % 736-9) MONO % (test code = 9.2 % 5905-5) EOS % (test code = 3.0 % 713-8) BASO % (test code = 1.1 % 706-2) GRAN MAT x10^3(ANC) 3.15 10*3/uL 1.88-7.09 (test code = 8167125811) IMM GRAN x10^3 (test 0.05 10*3/uL 0.00-0.06 code = 0389254045) LYMPH x10^3 (test code 3.12 10*3/uL 1.32-3.29 = 731-0) MONO x10^3 (test code 0.67 10*3/uL 0.33-0.92 = 742-7) EOS x10^3 (test code = 0.22 10*3/uL 0.03-0.39 711-2) BASO x10^3 (test code 0.08 10*3/uL 0.01-0.07 H = 704-7) Lab Interpretation Abnormal (test code = 42143-4) [facility] [id number] 23:09:32 Test Item Value Reference Range Interpretation Comments LACTIC ACID (test code = 1.94 mmol/L 0.50-2.20 1585728601) Lab Interpretation (test code = Normal 14125-2) [facility] [id number] 22:34:00 Test Item Value Reference Range Interpretation Comments POCT PREG (test code = 1605) Negative On board controls acceptable with Present C Line (test code = 3574) POCT PREG LOT # (test code = 3575) [id number] POCT PREG TEST DATE (test 2023-04-09 code = 3576) Lab Interpretation (test code = Normal 76896-0) [facility], [id number] 08:52:36SPECIMEN NUMBER: [id number] CULTURE, URINE SPECIMEN NUMBER: [id number] SPECIMEN COMMENT: URINE SOURCE:URINE REPORT STATUS: FINAL FINAL REPORT: 10/12/2021 >100,000 CFU/ML UROGENITAL NORMA PRESENT NO COMMON PATHOGENS UNLESS OTHERWISE INDICATED, ALL TESTING PERFORMED [facility] [address] [place] [address] IRON SETTER: NOAH DICKENS M.D. CLIA NUMBER [id number] [facility] [place]. [id number], [id number] 00:00:00 Test Item Value Reference Range Interpretation Comments CULTURE, URINE (test SPECIMEN NUMBER: code = 73400) [id number] CULTURE, [id number] 00:00:00 Test Item Value Reference Range Interpretation Comments CULTURE, URINE (test SPECIMEN NUMBER: code = 49563) [id number] CULTURE, [id number] 00:00:00 Test Item Value Reference Range Interpretation Comments CULTURE, URINE (test SPECIMEN NUMBER: code = 56164) [id number] CULTURE, [id number] 00:00:00 Test Item Value Reference Range Interpretation Comments CULTURE, URINE (test SPECIMEN NUMBER: code = 30832) [id number] CULTURE, [id number] 00:00:00 Test Item Value Reference Range Interpretation Comments CULTURE, URINE (test SPECIMEN NUMBER: code = 48548) [id number] CULTURE, [id number] 00:00:00 Test Item Value Reference Range Interpretation Comments CULTURE, URINE (test SPECIMEN NUMBER: code = 27350) [id number] CULTURE, [id number] 00:00:00 Test Item Value Reference Range Interpretation Comments CULTURE, URINE (test SPECIMEN NUMBER: code = 51854) [id number] CULTURE, [id number] 00:00:00 Test Item Value Reference Range Interpretation Comments CULTURE, URINE (test SPECIMEN NUMBER: code = 05569) [id number] CULTURE, [id number] 00:00:00 Test Item Value Reference Range Interpretation Comments CULTURE, URINE (test SPECIMEN NUMBER: code = 65878) [id number] CULTURE, [id number] 00:00:00 Test Item Value Reference Range Interpretation Comments CULTURE, URINE (test SPECIMEN NUMBER: code = 02563) [id number] CULTURE, [id number] 00:00:00 Test Item Value Reference Range Interpretation Comments CULTURE, URINE (test SPECIMEN NUMBER: code = 38548) [id number] CULTURE, [id number] 00:00:00 Test Item Value Reference Range Interpretation Comments CULTURE, URINE (test SPECIMEN NUMBER: code = 14604) [id number] CULTURE, [id number] 00:00:00 Test Item Value Reference Range Interpretation Comments CULTURE, URINE (test SPECIMEN NUMBER: code = 14057) [id number] CULTURE, [id number] 00:00:00 Test Item Value Reference Range Interpretation Comments CULTURE, URINE (test SPECIMEN NUMBER: code = 38672) [id number] CULTURE, [id number] 00:00:00 Test Item Value Reference Range Interpretation Comments CULTURE, URINE (test SPECIMEN NUMBER: code = 67868) [id number] CULTURE, [id number] 00:00:00 Test Item Value Reference Range Interpretation Comments CULTURE, URINE (test SPECIMEN NUMBER: code = 06545) [id number] CULTURE, [id number] 00:00:00 Test Item Value Reference Range Interpretation Comments CULTURE, URINE (test SPECIMEN NUMBER: code = 98008) [id number] CULTURE, [id number] 00:00:00 Test Item Value Reference Range Interpretation Comments CULTURE, URINE (test SPECIMEN NUMBER: code = 68887) [id number] CULTURE, [id number] 00:00:00 Test Item Value Reference Range Interpretation Comments CULTURE, URINE (test SPECIMEN NUMBER: code = 98115) [id number] CULTURE, [id number] 00:00:00 Test Item Value Reference Range Interpretation Comments CULTURE, URINE (test SPECIMEN NUMBER: code = 82089) [id number] CULTURE, [id number] 00:00:00 Test Item Value Reference Range Interpretation Comments CULTURE, URINE (test SPECIMEN NUMBER: code = 13096) [id number] URINE CULTURE, NO [id number] 09:46:36SPECIMEN NUMBER: [id number] URINE CULTURE, NO SENS SPECIMEN NUMBER: [id number] SPECIMEN COMMENT: URINESOURCE: URINE REPORT STATUS: FINAL FINAL REPORT: 10/08/2021 50-100,000 CFU/ML UROGENITAL NORMA PRESENT NO COMMON PATHOGENSURINE CULTURE, NO [id number] 00:00:00 Test Item Value Reference Range Interpretation Comments URINE CULTURE, NO SPECIMEN NUMBER: SENS (test code = 470331969 59504) URINE CULTURE, NO [id number] 00:00:00 Test Item Value Reference Range Interpretation Comments URINE CULTURE, NO SPECIMEN NUMBER: SENS (test code = 933716291 65673) URINE CULTURE, NO [id number] 00:00:00 Test Item Value Reference Range Interpretation Comments URINE CULTURE, NO SPECIMEN NUMBER: SENS (test code = 135670781 46369) URINE CULTURE, NO [id number] 00:00:00 Test Item Value Reference Range Interpretation Comments URINE CULTURE, NO SPECIMEN NUMBER: SENS (test code = 495646904 54756) URINE CULTURE, NO [id number] 00:00:00 Test Item Value Reference Range Interpretation Comments URINE CULTURE, NO SPECIMEN NUMBER: SENS (test code = 166078865 03820) URINE CULTURE, NO [id number] 00:00:00 Test Item Value Reference Range Interpretation Comments URINE CULTURE, NO SPECIMEN NUMBER: SENS (test code = 210346502 28601) URINE CULTURE, NO [id number] 00:00:00 Test Item Value Reference Range Interpretation Comments URINE CULTURE, NO SPECIMEN NUMBER: SENS (test code = 853750578 44696) URINE CULTURE, NO [id number] 00:00:00 Test Item Value Reference Range Interpretation Comments URINE CULTURE, NO SPECIMEN NUMBER: SENS (test code = 948367516 04217) URINE CULTURE, NO [id number] 00:00:00 Test Item Value Reference Range Interpretation Comments URINE CULTURE, NO SPECIMEN NUMBER: SENS (test code = 281477289 33412) URINE CULTURE, NO [id number] 00:00:00 Test Item Value Reference Range Interpretation Comments URINE CULTURE, NO SPECIMEN NUMBER: SENS (test code = 082930321 67205) URINE CULTURE, NO [id number] 00:00:00 Test Item Value Reference Range Interpretation Comments URINE CULTURE, NO SPECIMEN NUMBER: SENS (test code = 790399796 18010) URINE CULTURE, NO [id number] 00:00:00 Test Item Value Reference Range Interpretation Comments URINE CULTURE, NO SPECIMEN NUMBER: SENS (test code = 482160455 68769) URINE CULTURE, NO [id number] 00:00:00 Test Item Value Reference Range Interpretation Comments URINE CULTURE, NO SPECIMEN NUMBER: SENS (test code = 463187662 38779) URINE CULTURE, NO [id number] 00:00:00 Test Item Value Reference Range Interpretation Comments URINE CULTURE, NO SPECIMEN NUMBER: SENS (test code = 119376187 83412) URINE CULTURE, NO [id number] 00:00:00 Test Item Value Reference Range Interpretation Comments URINE CULTURE, NO SPECIMEN NUMBER: SENS (test code = 646458260 11165) URINE CULTURE, NO [id number] 00:00:00 Test Item Value Reference Range Interpretation Comments URINE CULTURE, NO SPECIMEN NUMBER: SENS (test code = 461089915 19849) URINE CULTURE, NO [id number] 00:00:00 Test Item Value Reference Range Interpretation Comments URINE CULTURE, NO SPECIMEN NUMBER: SENS (test code = 823665664 19580) URINE CULTURE, NO [id number] 00:00:00 Test Item Value Reference Range Interpretation Comments URINE CULTURE, NO SPECIMEN NUMBER: SENS (test code = 083231371 45919) URINE CULTURE, NO [id number] 00:00:00 Test Item Value Reference Range Interpretation Comments URINE CULTURE, NO SPECIMEN NUMBER: SENS (test code = 448557230 98964) URINE CULTURE, NO [id number] 00:00:00 Test Item Value Reference Range Interpretation Comments URINE CULTURE, NO SPECIMEN NUMBER: SENS (test code = 344038869 31157) URINE CULTURE, NO [id number] 00:00:00 Test Item Value Reference Range Interpretation Comments URINE CULTURE, NO SPECIMEN NUMBER: SENS (test code = 712941553 51170) CBC W/AUTO DIFF WITH [id number] 07:54:02 Test Item Value Reference Range Interpretation [...] RBCS 0.00 K/UL 0.00-0.11 (test code = 67175) COMPREHENSIVE METABOLIC [id number] 05:34:02 Test Item Value Reference Range Interpretation Comments GLUCOSE (test code = 108 MG/DL 70-99 H 2216) BUN (test code = 17 MG/DL 6-20 2207) CREATININE (test 0.84 MG/DL 0.60-1.30 code = 221) eGFR (2020 CKD-EPI) 88 >60 (test code = 72538) ML/MIN/1.73 CALC BUN/CREAT (test 20 RATIO 6-28 code = 2235) SODIUM (test code = 141 MEQ/L 214-446 9083) POTASSIUM (test code 4.0 MEQ/L 3.5-5.4 = [...] PHOSPHATASE 51 U/L 40-113 (test code = 2204) AST (test code = 22 U/L 9-40 2218) ALT (test code = 28 U/L 5-40 UNLESS OTH ERWISE 2219) INDICATED, ALL TESTING PERFORM ED ATCL[facility], [facility]. [address] [place] [address] [facility] MUNA DIRECTOR: NOAH DICKENS M.D. CLIA NUMBER [id number] CAP ACCREDITATION N O. [id number] CBC W/AUTO [id number] 00:00:00 Test Item Value Reference Range Interpretation [...] NUCLEATED RBCS (test code = 0.00 K/UL 26098) CBC W/AUTO [id number] 00:00:00 Test Item Value Reference Range Interpretation [...] NUCLEATED RBCS (test code = 0.00 K/UL 82624) CBC W/AUTO [id number] 00:00:00 Test Item Value Reference Range Interpretation [...] NUCLEATED RBCS (test code = 0.00 K/UL 51430) COMPREHENSIVE METABOLIC [id number] 00:00:00 Test Item Value Reference Range Interpretation Comments GLUCOSE (test code = 2217) 108 MG/DL BUN (test code = 2208) 17 MG/DL CREATININE (test code = 2214) 0.84 MG/DL eGFR (2020 CKD-EPI) (test code 88 ML/MIN/1.73 = 99419) CALC BUN/CREAT (test code = 20 RATIO [...] code = 2219) 28 U/L COMPREHENSIVE METABOLIC [id number] 00:00:00 Test Item Value Reference Range Interpretation Comments GLUCOSE (test code = 2217) 108 MG/DL BUN (test code = 2208) 17 MG/DL CREATININE (test code = 2214) 0.84 MG/DL eGFR (2020 CKD-EPI) (test code 88 ML/MIN/1.73 = 05482) CALC BUN/CREAT (test code = 20 RATIO [...] code = 2219) 28 U/L CBC W/AUTO [id number] 00:00:00 Test Item Value Reference Range Interpretation [...] NUCLEATED RBCS (test code = 0.00 K/UL 53098) CBC W/AUTO [id number] 00:00:00 Test Item Value Reference Range Interpretation [...] NUCLEATED RBCS (test code = 0.00 K/UL 52779) CBC W/AUTO [id number] 00:00:00 Test Item Value Reference Range Interpretation [...] NUCLEATED RBCS (test code = 0.00 K/UL 55407) COMPREHENSIVE METABOLIC [id number] 00:00:00 Test Item Value Reference Range Interpretation Comments GLUCOSE (test code = 2217) 108 MG/DL BUN (test code = 2208) 17 MG/DL CREATININE (test code = 2214) 0.84 MG/DL eGFR (2020 CKD-EPI) (test code 88 ML/MIN/1.73 = 04222) CALC BUN/CREAT (test code = 20 RATIO [...] code = 2219) 28 U/L COMPREHENSIVE METABOLIC [id number] 00:00:00 Test Item Value Reference Range Interpretation Comments GLUCOSE (test code = 2217) 108 MG/DL BUN (test code = 2208) 17 MG/DL CREATININE (test code = 2214) 0.84 MG/DL eGFR (2020 CKD-EPI) (test code 88 ML/MIN/1.73 = 37073) CALC BUN/CREAT (test code = 20 RATIO [...] code = 2219) 28 U/L CBC W/AUTO [id number] 00:00:00 Test Item Value Reference Range Interpretation [...] NUCLEATED RBCS (test code = 0.00 K/UL 23175) CBC W/AUTO [id number] 00:00:00 Test Item Value Reference Range Interpretation [...] NUCLEATED RBCS (test code = 0.00 K/UL 93404) CBC W/AUTO [id number] 00:00:00 Test Item Value Reference Range Interpretation [...] NUCLEATED RBCS (test code = 0.00 K/UL 97264) COMPREHENSIVE METABOLIC [id number] 00:00:00 Test Item Value Reference Range Interpretation Comments GLUCOSE (test code = 2217) 108 MG/DL BUN (test code = 2208) 17 MG/DL CREATININE (test code = 2214) 0.84 MG/DL eGFR (2020 CKD-EPI) (test code 88 ML/MIN/1.73 = 39841) CALC BUN/CREAT (test code = 20 RATIO [...] code = 2219) 28 U/L COMPREHENSIVE METABOLIC [id number] 00:00:00 Test Item Value Reference Range Interpretation Comments GLUCOSE (test code = 2217) 108 MG/DL BUN (test code = 2208) 17 MG/DL CREATININE (test code = 2214) 0.84 MG/DL eGFR (2020 CKD-EPI) (test code 88 ML/MIN/1.73 = 29383) CALC BUN/CREAT (test code = 20 RATIO [...] code = 2219) 28 U/L CBC W/AUTO [id number] 00:00:00 Test Item Value Reference Range Interpretation [...] NUCLEATED RBCS (test code = 0.00 K/UL 89623) CBC W/AUTO [id number] 00:00:00 Test Item Value Reference Range Interpretation [...] NUCLEATED RBCS (test code = 0.00 K/UL 19799) CBC W/AUTO [id number] 00:00:00 Test Item Value Reference Range Interpretation [...] NUCLEATED RBCS (test code = 0.00 K/UL 38013) COMPREHENSIVE METABOLIC [id number] 00:00:00 Test Item Value Reference Range Interpretation Comments GLUCOSE (test code = 2217) 108 MG/DL BUN (test code = 2208) 17 MG/DL CREATININE (test code = 2214) 0.84 MG/DL eGFR (2020 CKD-EPI) (test code 88 ML/MIN/1.73 = 26880) CALC BUN/CREAT (test code = 20 RATIO [...] code = 2219) 28 U/L COMPREHENSIVE METABOLIC [id number] 00:00:00 Test Item Value Reference Range Interpretation Comments GLUCOSE (test code = 2217) 108 MG/DL BUN (test code = 2208) 17 MG/DL CREATININE (test code = 2214) 0.84 MG/DL eGFR (2020 CKD-EPI) (test code 88 ML/MIN/1.73 = 41836) CALC BUN/CREAT (test code = 20 RATIO [...] code = 2219) 28 U/L CBC W/AUTO [id number] 00:00:00 Test Item Value Reference Range Interpretation [...] code = 0.00 K/UL 16095) CBC W/AUTO [id number] 00:00:00 Test Item Value Reference Range Interpretation [...] NUCLEATED RBCS (test code = 0.00 K/UL 08916) CBC W/AUTO [id number] 00:00:00 Test Item Value Reference Range Interpretation [...] NUCLEATED RBCS (test code = 0.00 K/UL 00872) COMPREHENSIVE METABOLIC [id number] 00:00:00 Test Item Value Reference Range Interpretation Comments GLUCOSE (test code = 2217) 108 MG/DL BUN (test code = 2208) 17 MG/DL CREATININE (test code = 2214) 0.84 MG/DL eGFR (2020 CKD-EPI) (test code 88 ML/MIN/1.73 = 20656) CALC BUN/CREAT (test code = 20 RATIO [...] code = 2219) 28 U/L COMPREHENSIVE METABOLIC [id number] 00:00:00 Test Item Value Reference Range Interpretation Comments GLUCOSE (test code = 2217) 108 MG/DL BUN (test code = 2208) 17 MG/DL CREATININE (test code = 2214) 0.84 MG/DL eGFR (2020 CKD-EPI) (test code 88 ML/MIN/1.73 = 11539) CALC BUN/CREAT (test code = 20 RATIO [...] code = 2219) 28 U/L CBC W/AUTO [id number] 00:00:00 Test Item Value Reference Range Interpretation [...] NUCLEATED RBCS (test code = 0.00 K/UL 40198) CBC W/AUTO [id number] 00:00:00 Test Item Value Reference Range Interpretation [...] NUCLEATED RBCS (test code = 0.00 K/UL 73677) CBC W/AUTO [id number] 00:00:00 Test Item Value Reference Range Interpretation [...] NUCLEATED RBCS (test code = 0.00 K/UL 26429) COMPREHENSIVE METABOLIC [id number] 00:00:00 Test Item Value Reference Range Interpretation Comments GLUCOSE (test code = 2217) 108 MG/DL BUN (test code = 2208) 17 MG/DL CREATININE (test code = 2214) 0.84 MG/DL eGFR (2020 CKD-EPI) (test code 88 ML/MIN/1.73 = 38389) CALC BUN/CREAT (test code = 20 RATIO [...] code = 2219) 28 U/L COMPREHENSIVE METABOLIC [id number] 00:00:00 Test Item Value Reference Range Interpretation Comments GLUCOSE (test code = 2217) 108 MG/DL BUN (test code = 2208) 17 MG/DL CREATININE (test code = 2214) 0.84 MG/DL eGFR (2020 CKD-EPI) (test code 88 ML/MIN/1.73 = 07545) CALC BUN/CREAT (test code = 20 RATIO [...] code = 2219) 28 U/L CBC W/AUTO [id number] 00:00:00 Test Item Value Reference Range Interpretation [...] NUCLEATED RBCS (test code = 0.00 K/UL 68527) CBC W/AUTO [id number] 00:00:00 Test Item Value Reference Range Interpretation [...] NUCLEATED RBCS (test code = 0.00 K/UL 45355) CBC W/AUTO [id number] 00:00:00 Test Item Value Reference Range Interpretation [...] NUCLEATED RBCS (test code = 0.00 K/UL 37805) COMPREHENSIVE METABOLIC [id number] 00:00:00 Test Item Value Reference Range Interpretation Comments GLUCOSE (test code = 2217) 108 MG/DL BUN (test code = 2208) 17 MG/DL CREATININE (test code = 2214) 0.84 MG/DL eGFR (2020 CKD-EPI) (test code 88 ML/MIN/1.73 = 97572) CALC BUN/CREAT (test code = 20 RATIO [...] code = 2219) 28 U/L COMPREHENSIVE METABOLIC [id number] 00:00:00 Test Item Value Reference Range Interpretation Comments GLUCOSE (test code = 2217) 108 MG/DL BUN (test code = 2208) 17 MG/DL CREATININE (test code = 2214) 0.84 MG/DL eGFR (2020 CKD-EPI) (test code 88 ML/MIN/1.73 = 48933) CALC BUN/CREAT (test code = 20 RATIO [...] code = 2219) 28 U/L CBC W/AUTO [id number] 00:00:00 Test Item Value Reference Range Interpretation [...] NUCLEATED RBCS (test code = 0.00 K/UL 67453) CBC W/AUTO [id number] 00:00:00 Test Item Value Reference Range Interpretation [...] NUCLEATED RBCS (test code = 0.00 K/UL 09188) COMPREHENSIVE METABOLIC [id number] 00:00:00 Test Item Value Reference Range Interpretation Comments GLUCOSE (test code = 2217) 108 MG/DL BUN (test code = 2208) 17 MG/DL CREATININE (test code = 2214) 0.84 MG/DL eGFR (2020 CKD-EPI) (test code 88 ML/MIN/1.73 = 71075) CALC BUN/CREAT (test code = 20 RATIO [...] BILIRUBIN, TOTAL (test code = <0.2 MG/DL 220) ALKALINE PHOSPHATASE (test 51 U/L code = 2204) AST (test code = 2218) 22 U/L ALT (test code = 2219) 28 U/L CBC W/AUTO [id number] 00:00:00 Test Item Value Reference Range Interpretation [...] NUCLEATED RBCS (test code = 0.00 K/UL 41542) CBC W/AUTO [id number] 00:00:00 Test Item Value Reference Range Interpretation [...] NUCLEATED RBCS (test code = 0.00 K/UL 44255) CBC W/AUTO [id number] 00:00:00 Test Item Value Reference Range Interpretation [...] NUCLEATED RBCS (test code = 0.00 K/UL 21065) COMPREHENSIVE METABOLIC [id number] 00:00:00 Test Item Value Reference Range Interpretation Comments GLUCOSE (test code = 2217) 108 MG/DL BUN (test code = 2208) 17 MG/DL CREATININE (test code = 2214) 0.84 MG/DL eGFR (2020 CKD-EPI) (test code 88 ML/MIN/1.73 = 10696) CALC BUN/CREAT (test code = 20 RATIO [...] code = 2219) 28 U/L COMPREHENSIVE METABOLIC [id number] 00:00:00 Test Item Value Reference Range Interpretation Comments GLUCOSE (test code = 2217) 108 MG/DL BUN (test code = 2208) 17 MG/DL CREATININE (test code = 2214) 0.84 MG/DL eGFR (2020 CKD-EPI) (test code 88 ML/MIN/1.73 = 55484) CALC BUN/CREAT (test code = 20 RATIO [...] BILIRUBIN, TOTAL (test code = <0.2 MG/DL 7) ALKALINE PHOSPHATASE (test 51 U/L code = 2204) AST (test code = 2218) 22 U/L ALT (test code = 2219) 28 U/L CBC W/AUTO [id number] 00:00:00 Test Item Value Reference Range Interpretation [...] NUCLEATED RBCS (test code = 0.00 K/UL 48086) CBC W/AUTO [id number] 00:00:00 Test Item Value Reference Range Interpretation [...] NUCLEATED RBCS (test code = 0.00 K/UL 36496) CBC W/AUTO [id number] 00:00:00 Test Item Value Reference Range Interpretation [...] NUCLEATED RBCS (test code = 0.00 K/UL 40046) COMPREHENSIVE METABOLIC [id number] 00:00:00 Test Item Value Reference Range Interpretation Comments GLUCOSE (test code = 2217) 108 MG/DL BUN (test code = 2208) 17 MG/DL CREATININE (test code = 2214) 0.84 MG/DL eGFR (2020 CKD-EPI) (test code 88 ML/MIN/1.73 = 42260) CALC BUN/CREAT (test code = 20 RATIO [...] code = 2219) 28 U/L COMPREHENSIVE METABOLIC [id number] 00:00:00 Test Item Value Reference Range Interpretation Comments GLUCOSE (test code = 2217) 108 MG/DL BUN (test code = 2208) 17 MG/DL CREATININE (test code = 2214) 0.84 MG/DL eGFR (2020 CKD-EPI) (test code 88 ML/MIN/1.73 = 30055) CALC BUN/CREAT (test code = 20 RATIO [...] code = 2219) 28 U/L CBC W/AUTO [id number] 00:00:00 Test Item Value Reference Range Interpretation [...] NUCLEATED RBCS (test code = 0.00 K/UL 86927) CBC W/AUTO [id number] 00:00:00 Test Item Value Reference Range Interpretation [...] NUCLEATED RBCS (test code = 0.00 K/UL 19247) CBC W/AUTO [id number] 00:00:00 Test Item Value Reference Range Interpretation [...] NUCLEATED RBCS (test code = 0.00 K/UL 03016) COMPREHENSIVE METABOLIC [id number] 00:00:00 Test Item Value Reference Range Interpretation Comments GLUCOSE (test code = 2217) 108 MG/DL BUN (test code = 2208) 17 MG/DL CREATININE (test code = 2214) 0.84 MG/DL eGFR (2020 CKD-EPI) (test code 88 ML/MIN/1.73 = 65363) CALC BUN/CREAT (test code = 20 RATIO [...] code = 2219) 28 U/L COMPREHENSIVE METABOLIC [id number] 00:00:00 Test Item Value Reference Range Interpretation Comments GLUCOSE (test code = 2217) 108 MG/DL BUN (test code = 2208) 17 MG/DL CREATININE (test code = 2214) 0.84 MG/DL eGFR (2020 CKD-EPI) (test code 88 ML/MIN/1.73 = 10221) CALC BUN/CREAT (test code = 20 RATIO [...] = 2219) 28 U/L COMP. METABOLIC PANEL (78697)2021-09-22 15:36:43 Test Item Value Reference Range Interpretation Comments NA (test code = 133 mmol/L 135-145 L [id number]) K (test code = 4.8 mmol/L 3.5-5.0 6081676509) CL (test code = 96 mmol/L 98-108 L [id number]) CO2 TOTAL (test code = 21 mmol/L 23-31 L 8432418967) AGAP (test code = 2-16 [id number]) BUN (test code = 30 mg/dL 7-23 H 7651492070) GLUCOSE (test code = 405 mg/dL 70-110 H 7539786477) CREATININE (test code = 0.74 mg/dL 0.50-1.04 4372609754) TOTAL BILI (test code = 0.6 mg/dL 0.1-1.9 4049722923) CALCIUM (test code = 9.7 mg/dL 8.6-10.6 6536352053) T PROTEIN (test code = 7.9 g/dL 6.3-8.2 1218648690) ALBUMIN (test code = 4.9 g/dL 3.5-5.0 0678655015) ALK PHOS (test code = 66 U/L 34-122 6655106530) ALTv (test code = 37 U/L 5-35 H 1742-6) AST(SGOT) (test code = 31 U/L 13-40 0192238863) eGFR (test code = mL/min/1.73m2 3526674147) CALVIN (test code = CALVIN) Association of [...] tests). Lab Interpretation Abnormal (test code = 41940-1) [facility] WITH [id number] 15:26:02 Test Item Value Reference Range Interpretation Comments WBC (test code = See_Comment [Automated 5580-2) message] The sy stem which generated this result transmitted reference range : 4.30 - 11.10 10*3/?L. The reference range was not used to interpret this result as normal/abnormal . RBC (test code = See_Comment [Automated 713-8) message] The sy stem which generated this [...] (test code = 38.2 fL 39.0-49.9 L 26644-8) RDW-CV (test code = 12.9 % 12.0-15.5 788-0) PLT (test code = See_Comment [Automated 777-3) message] The sy stem which generated this result transmitted reference range : 166 - 358 10*3/ ?L. The reference r doretha was not used to interpret this result as normal/abnormal . MPV (test code = 9.8 fL 9.5-12.9 31289-1) NRBC/100 WBC (test See_Comment [Automat ed code = [id number]) message] The system which generated this result transmitted reference range : 0.0 - 10.0 /100 WBCs. The refer ence range was not u sed to interpret th is result as normal/abnormal . NRBC x10^3 (test code <0.01 See_Comment [Auto mated = [id number]) message] The s ystem which generated this result transmitted reference range : 10*3/?L. The reference range was not used to interpret this result as normal/abnormal . GRAN MAT (NEUT) % 50.6 % (test code = 770-8) IMM GRAN % (test code 0.80 % = [id number]) LYMPH % (test code = 37.0 % 736-9) MONO % (test code = 8.5 % 5905-5) EOS % (test code = 2.2 % 713-8) BASO % (test code = 0.9 % 706-2) GRAN MAT x10^3(ANC) 3.86 10*3/uL 1.88-7.09 (test code = 4273066212) IMM GRAN x10^3 (test 0.06 10*3/uL 0.00-0.06 code = 2422767142) LYMPH x10^3 (test code 2.83 10*3/uL 1.32-3.29 = 731-0) MONO x10^3 (test code 0.65 10*3/uL 0.33-0.92 = 742-7) EOS x10^3 (test code = 0.17 10*3/uL 0.03-0.39 711-2) BASO x10^3 (test code 0.07 10*3/uL 0.01-0.07 = 704-7) Lab Interpretation Abnormal (test code = 72532-7) [id number]00 Test Item Value Reference Range Interpretation Comments POCT PREG (test code = 1605) negative On board controls acceptable with present C Line (test code = 3574) POCT PREG LOT # (test code = 3575) [id number] POCT PREG TEST DATE (test 09/07/2022 code = 3576) Lab Interpretation (test code = Normal 12766-4) [id number] 08:[facility]00 Test Item Value Reference Range Interpretation Comments GLUBED (test code = GLUBED) 260 mg/dL 60-125 H [id number] 06:42:00 Test Item Value Reference Range Interpretation Comments GLUBED (test code = GLUBED) 265 mg/dL 60-125 H COVID 19 Asymptomatic IH [id number] 17:24:00 Test Item Value Reference Range Interpretation Comments COVID 19 Asymptomatic IH AG (test NEGATIVE NEGATIVE code = COVNONPUIAG) COMPREHENSIVE METABOLIC [id number] 05:38:33 Test Item Value Reference Range Interpretation Comments GLUCOSE (test code = 411 MG/DL 70-99 H 2216) BUN (test code = 24 MG/DL 6-20 H 2207) CREATININE (test 1.13 MG/DL 0.60-1.30 code = 2214) eGFR (2020 CKD-EPI) 62 ML/MIN/1.73 >60 (test code = 59676) CALC BUN/CREAT (test 21 RATIO 01-05 code = 2235) SODIUM (test code = 136 MEQ/L 224-219 4650) POTASSIUM (test code 5.0 MEQ/L 3.5-5.4 = 2227) CHLORIDE (test code 97 MEQ/L 95-107 = 221) CARBON DIOXIDE (test 20 MEQ/L 19-31 code [...] = 49 U/L 5-40 H 2218) LIPID [id number] 05:38:33 Test Item Value Reference Range Interpretation [...] MOREINFORMATION , SEE CLIENT ANNOUNCE MENT AT [email or web address] CalcLDL-C RISK RATIO LDL/HDL 2.79 RATIO <3.22 UNABLE TO CALCULATE (test code = 2237) UNLESS OT HERWISE INDICATED, ALL TESTING PERFORMED [facility] [address] [place] [address] 4 LABORATORY DIRE CTOR: NOAH TODD M.D. CHERELLEIA NUMBER [id number] [place] [id number] HEMOGLOBIN [id number] 03:55:33 Test Item Value Reference Range Interpretation Comments HEMOGLOBIN A1c (test 11.9 % 4.2-5.6 H [employer] code = 50291) ASSOCIATION [employer] FOR HGB A1C: PREDIABETES/INC REASED [...] ( HEMOLYTIC ANEMIAS, BLOOD LOSS, ETC.). CONSIDER ALTERNATE TESTING OR LABO RATORY CONSULTATION. COMPREHENSIVE METABOLIC [id number] 00:00:00 Test Item Value Reference Range Interpretation Comments GLUCOSE (test code = 2217) 411 MG/DL BUN (test code = 2208) 24 MG/DL CREATININE (test code = 2214) 1.13 MG/DL eGFR (2020 CKD-EPI) (test code 62 ML/MIN/1.73 = 21928) CALC BUN/CREAT (test code = 21 RATIO [...] code = 2219) 49 U/L COMPREHENSIVE METABOLIC [id number] 00:00:00 Test Item Value Reference Range Interpretation Comments GLUCOSE (test code = 2217) 411 MG/DL BUN (test code = 2208) 24 MG/DL CREATININE (test code = 2214) 1.13 MG/DL eGFR (2020 CKD-EPI) (test code 62 ML/MIN/1.73 = 52257) CALC BUN/CREAT (test code = 21 RATIO [...] (test code = 2219) 49 U/L HEMOGLOBIN [id number] 00:00:00 Test Item Value Reference Range Interpretation Comments HEMOGLOBIN A1c (test code = 74247) 11.9 % HEMOGLOBIN [id number] 00:00:00 Test Item Value Reference Range Interpretation Comments HEMOGLOBIN A1c (test code = 43284) 11.9 % HEMOGLOBIN [id number] 00:00:00 Test Item Value Reference Range Interpretation Comments HEMOGLOBIN A1c (test code = 87683) 11.9 % LIPID [id number] 00:00:00 Test Item Value Reference Range Interpretation Comments CHOLESTEROL (test code = 2210) 176 MG/DL TRIGLYCERIDES (test code = 2232) 614 MG/DL HDL CHOLESTEROL (test code = 28 MG/DL 2219) CALC LDL CHOL (test code = 2237) (NOTE) MG/DL RISK RATIO LDL/HDL (test code = 2.79 RATIO 2238) LIPID [id number] 00:00:00 Test Item Value Reference Range Interpretation Comments CHOLESTEROL (test code = 2210) 176 MG/DL TRIGLYCERIDES (test code = 2232) 614 MG/DL HDL CHOLESTEROL (test code = 28 MG/DL 0) CALC LDL CHOL (test code = 2237) (NOTE) MG/DL RISK RATIO LDL/HDL (test code = 2.79 RATIO 2238) COMPREHENSIVE METABOLIC [id number] 00:00:00 Test Item Value Reference Range Interpretation Comments GLUCOSE (test code = 2217) 411 MG/DL BUN (test code = 2208) 24 MG/DL CREATININE (test code = 2214) 1.13 MG/DL eGFR (2020 CKD-EPI) (test code 62 ML/MIN/1.73 = 89807) CALC BUN/CREAT (test code = 21 RATIO [...] code = 2219) 49 U/L COMPREHENSIVE METABOLIC [id number] 00:00:00 Test Item Value Reference Range Interpretation Comments GLUCOSE (test code = 2217) 411 MG/DL BUN (test code = 2208) 24 MG/DL CREATININE (test code = 2214) 1.13 MG/DL eGFR (2020 CKD-EPI) (test code 62 ML/MIN/1.73 = 67472) CALC BUN/CREAT (test code = 21 RATIO [...] (test code = 2219) 49 U/L HEMOGLOBIN [id number] 00:00:00 Test Item Value Reference Range Interpretation Comments HEMOGLOBIN A1c (test code = 27546) 11.9 % HEMOGLOBIN [id number] 00:00:00 Test Item Value Reference Range Interpretation Comments HEMOGLOBIN A1c (test code = 85963) 11.9 % HEMOGLOBIN [id number] 00:00:00 Test Item Value Reference Range Interpretation Comments HEMOGLOBIN A1c (test code = 09123) 11.9 % LIPID [id number] 00:00:00 Test Item Value Reference Range Interpretation Comments CHOLESTEROL (test code = 2210) 176 MG/DL TRIGLYCERIDES (test code = 2232) 614 MG/DL HDL CHOLESTEROL (test code = 28 MG/DL 2220) CALC LDL CHOL (test code = 2237) (NOTE) MG/DL RISK RATIO LDL/HDL (test code = 2.79 RATIO 2238) LIPID [id number] 00:00:00 Test Item Value Reference Range Interpretation Comments CHOLESTEROL (test code = 2210) 176 MG/DL TRIGLYCERIDES (test code = 2232) 614 MG/DL HDL CHOLESTEROL (test code = 28 MG/DL 2220) CALC LDL CHOL (test code = 2237) (NOTE) MG/DL RISK RATIO LDL/HDL (test code = 2.79 RATIO 2238) COMPREHENSIVE METABOLIC [id number] 00:00:00 Test Item Value Reference Range Interpretation Comments GLUCOSE (test code = 2217) 411 MG/DL BUN (test code = 2208) 24 MG/DL CREATININE (test code = 2214) 1.13 MG/DL eGFR (2020 CKD-EPI) (test code 62 ML/MIN/1.73 = 56082) CALC BUN/CREAT (test code = 21 RATIO [...] code = 2219) 49 U/L COMPREHENSIVE METABOLIC [id number] 00:00:00 Test Item Value Reference Range Interpretation Comments GLUCOSE (test code = 2217) 411 MG/DL BUN (test code = 2208) 24 MG/DL CREATININE (test code = 2214) 1.13 MG/DL eGFR (2020 CKD-EPI) (test code 62 ML/MIN/1.73 = 25528) CALC BUN/CREAT (test code = 21 RATIO [...] (test code = 2219) 49 U/L HEMOGLOBIN [id number] 00:00:00 Test Item Value Reference Range Interpretation Comments HEMOGLOBIN A1c (test code = 40738) 11.9 % HEMOGLOBIN [id number] 00:00:00 Test Item Value Reference Range Interpretation Comments HEMOGLOBIN A1c (test code = 98440) 11.9 % HEMOGLOBIN [id number] 00:00:00 Test Item Value Reference Range Interpretation Comments HEMOGLOBIN A1c (test code = 24133) 11.9 % LIPID [id number] 00:00:00 Test Item Value Reference Range Interpretation Comments CHOLESTEROL (test code = 2210) 176 MG/DL TRIGLYCERIDES (test code = 2232) 614 MG/DL HDL CHOLESTEROL (test code = 28 MG/DL 2220) CALC LDL CHOL (test code = 2237) (NOTE) MG/DL RISK RATIO LDL/HDL (test code = 2.79 RATIO 2238) LIPID [id number] 00:00:00 Test Item Value Reference Range Interpretation Comments CHOLESTEROL (test code = 2210) 176 MG/DL TRIGLYCERIDES (test code = 2232) 614 MG/DL HDL CHOLESTEROL (test code = 28 MG/DL 2220) CALC LDL CHOL (test code = 2237) (NOTE) MG/DL RISK RATIO LDL/HDL (test code = 2.79 RATIO 2238) COMPREHENSIVE METABOLIC [id number] 00:00:00 Test Item Value Reference Range Interpretation Comments GLUCOSE (test code = 2217) 411 MG/DL BUN (test code = 2208) 24 MG/DL CREATININE (test code = 2214) 1.13 MG/DL eGFR (2020 CKD-EPI) (test code 62 ML/MIN/1.73 = 23694) CALC BUN/CREAT (test code = 21 RATIO [...] code = 2219) 49 U/L COMPREHENSIVE METABOLIC [id number] 00:00:00 Test Item Value Reference Range Interpretation Comments GLUCOSE (test code = 2217) 411 MG/DL BUN (test code = 2208) 24 MG/DL CREATININE (test code = 2214) 1.13 MG/DL eGFR (2020 CKD-EPI) (test code 62 ML/MIN/1.73 = 20820) CALC BUN/CREAT (test code = 21 RATIO [...] (test code = 2219) 49 U/L HEMOGLOBIN [id number] 00:00:00 Test Item Value Reference Range Interpretation Comments HEMOGLOBIN A1c (test code = 03992) 11.9 % HEMOGLOBIN [id number] 00:00:00 Test Item Value Reference Range Interpretation Comments HEMOGLOBIN A1c (test code = 87171) 11.9 % HEMOGLOBIN [id number] 00:00:00 Test Item Value Reference Range Interpretation Comments HEMOGLOBIN A1c (test code = 45935) 11.9 % LIPID [id number] 00:00:00 Test Item Value Reference Range Interpretation Comments CHOLESTEROL (test code = 2210) 176 MG/DL TRIGLYCERIDES (test code = 2232) 614 MG/DL HDL CHOLESTEROL (test code = 28 MG/DL 2219) CALC LDL CHOL (test code = 2237) (NOTE) MG/DL RISK RATIO LDL/HDL (test code = 2.79 RATIO 8) LIPID [id number] 00:00:00 Test Item Value Reference Range Interpretation Comments CHOLESTEROL (test code = 2210) 176 MG/DL TRIGLYCERIDES (test code = 2232) 614 MG/DL HDL CHOLESTEROL (test code = 28 MG/DL 0) CALC LDL CHOL (test code = 2237) (NOTE) MG/DL RISK RATIO LDL/HDL (test code = 2.79 RATIO 2238) COMPREHENSIVE METABOLIC [id number] 00:00:00 Test Item Value Reference Range Interpretation Comments GLUCOSE (test code = 2217) 411 MG/DL BUN (test code = 2208) 24 MG/DL CREATININE (test code = 2214) 1.13 MG/DL eGFR (2020 CKD-EPI) (test code 62 ML/MIN/1.73 = 11256) CALC BUN/CREAT (test code = 21 RATIO [...] code = 2219) 49 U/L COMPREHENSIVE METABOLIC [id number] 00:00:00 Test Item Value Reference Range Interpretation Comments GLUCOSE (test code = 2217) 411 MG/DL BUN (test code = 2208) 24 MG/DL CREATININE (test code = 2214) 1.13 MG/DL eGFR (2020 CKD-EPI) (test code 62 ML/MIN/1.73 = 24804) CALC BUN/CREAT (test code = 21 RATIO [...] (test code = 2219) 49 U/L HEMOGLOBIN [id number] 00:00:00 Test Item Value Reference Range Interpretation Comments HEMOGLOBIN A1c (test code = 34623) 11.9 % HEMOGLOBIN [id number] 00:00:00 Test Item Value Reference Range Interpretation Comments HEMOGLOBIN A1c (test code = 57444) 11.9 % HEMOGLOBIN [id number] 00:00:00 Test Item Value Reference Range Interpretation Comments HEMOGLOBIN A1c (test code = 38129) 11.9 % LIPID [id number] 00:00:00 Test Item Value Reference Range Interpretation Comments CHOLESTEROL (test code = 2210) 176 MG/DL TRIGLYCERIDES (test code = 2232) 614 MG/DL HDL CHOLESTEROL (test code = 28 MG/DL 2220) CALC LDL CHOL (test code = 2237) (NOTE) MG/DL RISK RATIO LDL/HDL (test code = 2.79 RATIO 2238) LIPID [id number] 00:00:00 Test Item Value Reference Range Interpretation Comments CHOLESTEROL (test code = 2210) 176 MG/DL TRIGLYCERIDES (test code = 2232) 614 MG/DL HDL CHOLESTEROL (test code = 28 MG/DL 2220) CALC LDL CHOL (test code = 2237) (NOTE) MG/DL RISK RATIO LDL/HDL (test code = 2.79 RATIO 2238) COMPREHENSIVE METABOLIC [id number] 00:00:00 Test Item Value Reference Range Interpretation Comments GLUCOSE (test code = 2217) 411 MG/DL BUN (test code = 2208) 24 MG/DL CREATININE (test code = 2214) 1.13 MG/DL eGFR (2020 CKD-EPI) (test code 62 ML/MIN/1.73 = 37915) CALC BUN/CREAT (test code = 21 RATIO [...] code = 2219) 49 U/L COMPREHENSIVE METABOLIC [id number] 00:00:00 Test Item Value Reference Range Interpretation Comments GLUCOSE (test code = 2216) 411 MG/DL BUN (test code = 8) 24 MG/DL CREATININE (test code = 2214) 1.13 MG/DL eGFR (2020 CKD-EPI) (test code 62 ML/MIN/1.73 = 55964) CALC BUN/CREAT (test code = 21 RATIO [...] (test code = 2219) 49 U/L HEMOGLOBIN [id number] 00:00:00 Test Item Value Reference Range Interpretation Comments HEMOGLOBIN A1c (test code = 32234) 11.9 % HEMOGLOBIN [id number] 00:00:00 Test Item Value Reference Range Interpretation Comments HEMOGLOBIN A1c (test code = 23121) 11.9 % HEMOGLOBIN [id number] 00:00:00 Test Item Value Reference Range Interpretation Comments HEMOGLOBIN A1c (test code = 24963) 11.9 % LIPID [id number] 00:00:00 Test Item Value Reference Range Interpretation Comments CHOLESTEROL (test code = 2210) 176 MG/DL TRIGLYCERIDES (test code = 2232) 614 MG/DL HDL CHOLESTEROL (test code = 28 MG/DL 2220) CALC LDL CHOL (test code = 2237) (NOTE) MG/DL RISK RATIO LDL/HDL (test code = 2.79 RATIO 2238) LIPID [id number] 00:00:00 Test Item Value Reference Range Interpretation Comments CHOLESTEROL (test code = 2210) 176 MG/DL TRIGLYCERIDES (test code = 2232) 614 MG/DL HDL CHOLESTEROL (test code = 28 MG/DL 2220) CALC LDL CHOL (test code = 2237) (NOTE) MG/DL RISK RATIO LDL/HDL (test code = 2.79 RATIO 2238) COMPREHENSIVE METABOLIC [id number] 00:00:00 Test Item Value Reference Range Interpretation Comments GLUCOSE (test code = 2217) 411 MG/DL BUN (test code = 2208) 24 MG/DL CREATININE (test code = 2214) 1.13 MG/DL eGFR (2020 CKD-EPI) (test code 62 ML/MIN/1.73 = 26230) CALC BUN/CREAT (test code = 21 RATIO [...] code = 2219) 49 U/L COMPREHENSIVE METABOLIC [id number] 00:00:00 Test Item Value Reference Range Interpretation Comments GLUCOSE (test code = 2217) 411 MG/DL BUN (test code = 2208) 24 MG/DL CREATININE (test code = 2214) 1.13 MG/DL eGFR (2020 CKD-EPI) (test code 62 ML/MIN/1.73 = 08120) CALC BUN/CREAT (test code = 21 RATIO [...] (test code = 2219) 49 U/L HEMOGLOBIN [id number] 00:00:00 Test Item Value Reference Range Interpretation Comments HEMOGLOBIN A1c (test code = 66247) 11.9 % HEMOGLOBIN [id number] 00:00:00 Test Item Value Reference Range Interpretation Comments HEMOGLOBIN A1c (test code = 03253) 11.9 % HEMOGLOBIN [id number] 00:00:00 Test Item Value Reference Range Interpretation Comments HEMOGLOBIN A1c (test code = 67530) 11.9 % LIPID [id number] 00:00:00 Test Item Value Reference Range Interpretation Comments CHOLESTEROL (test code = 2210) 176 MG/DL TRIGLYCERIDES (test code = 2232) 614 MG/DL HDL CHOLESTEROL (test code = 28 MG/DL 2219) CALC LDL CHOL (test code = 2237) (NOTE) MG/DL RISK RATIO LDL/HDL (test code = 2.79 RATIO 8) LIPID [id number] 00:00:00 Test Item Value Reference Range Interpretation Comments CHOLESTEROL (test code = 2210) 176 MG/DL TRIGLYCERIDES (test code = 2232) 614 MG/DL HDL CHOLESTEROL (test code = 28 MG/DL 2219) CALC LDL CHOL (test code = 2237) (NOTE) MG/DL RISK RATIO LDL/HDL (test code = 2.79 RATIO 2238) COMPREHENSIVE METABOLIC [id number] 00:00:00 Test Item Value Reference Range Interpretation Comments GLUCOSE (test code = 2217) 411 MG/DL BUN (test code = 2208) 24 MG/DL CREATININE (test code = 2214) 1.13 MG/DL eGFR (2020 CKD-EPI) (test code 62 ML/MIN/1.73 = 92653) CALC BUN/CREAT (test code = 21 RATIO [...] (test code = 2219) 49 U/L HEMOGLOBIN [id number] 00:00:00 Test Item Value Reference Range Interpretation Comments HEMOGLOBIN A1c (test code = 05061) 11.9 % HEMOGLOBIN [id number] 00:00:00 Test Item Value Reference Range Interpretation Comments HEMOGLOBIN A1c (test code = 86844) 11.9 % LIPID [id number] 00:00:00 Test Item Value Reference Range Interpretation Comments CHOLESTEROL (test code = 2210) 176 MG/DL TRIGLYCERIDES (test code = 2232) 614 MG/DL HDL CHOLESTEROL (test code = 28 MG/DL 2219) CALC LDL CHOL (test code = 2237) (NOTE) MG/DL RISK RATIO LDL/HDL (test code = 2.79 RATIO 2238) COMPREHENSIVE METABOLIC [id number] 00:00:00 Test Item Value Reference Range Interpretation Comments GLUCOSE (test code = 2217) 411 MG/DL BUN (test code = 2208) 24 MG/DL CREATININE (test code = 2214) 1.13 MG/DL eGFR (2020 CKD-EPI) (test code 62 ML/MIN/1.73 = 03448) CALC BUN/CREAT (test code = 21 RATIO [...] code = 2219) 49 U/L COMPREHENSIVE METABOLIC [id number] 00:00:00 Test Item Value Reference Range Interpretation Comments GLUCOSE (test code = 2217) 411 MG/DL BUN (test code = 2208) 24 MG/DL CREATININE (test code = 2214) 1.13 MG/DL eGFR (2020 CKD-EPI) (test code 62 ML/MIN/1.73 = 48985) CALC BUN/CREAT (test code = 21 RATIO [...] (test code = 2219) 49 U/L HEMOGLOBIN [id number] 00:00:00 Test Item Value Reference Range Interpretation Comments HEMOGLOBIN A1c (test code = 20942) 11.9 % HEMOGLOBIN [id number] 00:00:00 Test Item Value Reference Range Interpretation Comments HEMOGLOBIN A1c (test code = 27357) 11.9 % HEMOGLOBIN [id number] 00:00:00 Test Item Value Reference Range Interpretation Comments HEMOGLOBIN A1c (test code = 65269) 11.9 % LIPID [id number] 00:00:00 Test Item Value Reference Range Interpretation Comments CHOLESTEROL (test code = 2210) 176 MG/DL TRIGLYCERIDES (test code = 2232) 614 MG/DL HDL CHOLESTEROL (test code = 28 MG/DL 2220) CALC LDL CHOL (test code = 2237) (NOTE) MG/DL RISK RATIO LDL/HDL (test code = 2.79 RATIO 2238) LIPID [id number] 00:00:00 Test Item Value Reference Range Interpretation Comments CHOLESTEROL (test code = 2210) 176 MG/DL TRIGLYCERIDES (test code = 2232) 614 MG/DL HDL CHOLESTEROL (test code = 28 MG/DL 2220) CALC LDL CHOL (test code = 2237) (NOTE) MG/DL RISK RATIO LDL/HDL (test code = 2.79 RATIO 2238) COMPREHENSIVE METABOLIC [id number] 00:00:00 Test Item Value Reference Range Interpretation Comments GLUCOSE (test code = 2217) 411 MG/DL BUN (test code = 2208) 24 MG/DL CREATININE (test code = 2214) 1.13 MG/DL eGFR (2020 CKD-EPI) (test code 62 ML/MIN/1.73 = 96091) CALC BUN/CREAT (test code = 21 RATIO [...] code = 2219) 49 U/L COMPREHENSIVE METABOLIC [id number] 00:00:00 Test Item Value Reference Range Interpretation Comments GLUCOSE (test code = 2217) 411 MG/DL BUN (test code = 2208) 24 MG/DL CREATININE (test code = 2214) 1.13 MG/DL eGFR (2020 CKD-EPI) (test code 62 ML/MIN/1.73 = 92682) CALC BUN/CREAT (test code = 21 RATIO [...] (test code = 2219) 49 U/L HEMOGLOBIN [id number] 00:00:00 Test Item Value Reference Range Interpretation Comments HEMOGLOBIN A1c (test code = 36362) 11.9 % HEMOGLOBIN [id number] 00:00:00 Test Item Value Reference Range Interpretation Comments HEMOGLOBIN A1c (test code = 14219) 11.9 % HEMOGLOBIN [id number] 00:00:00 Test Item Value Reference Range Interpretation Comments HEMOGLOBIN A1c (test code = 06514) 11.9 % LIPID [id number] 00:00:00 Test Item Value Reference Range Interpretation Comments CHOLESTEROL (test code = 2210) 176 MG/DL TRIGLYCERIDES (test code = 2232) 614 MG/DL HDL CHOLESTEROL (test code = 28 MG/DL 2219) CALC LDL CHOL (test code = 2237) (NOTE) MG/DL RISK RATIO LDL/HDL (test code = 2.79 RATIO 2238) LIPID [id number] 00:00:00 Test Item Value Reference Range Interpretation Comments CHOLESTEROL (test code = 2210) 176 MG/DL TRIGLYCERIDES (test code = 2232) 614 MG/DL HDL CHOLESTEROL (test code = 28 MG/DL 2220) CALC LDL CHOL (test code = 2237) (NOTE) MG/DL RISK RATIO LDL/HDL (test code = 2.79 RATIO 2238) COMPREHENSIVE METABOLIC [id number] 00:00:00 Test Item Value Reference Range Interpretation Comments GLUCOSE (test code = 2217) 411 MG/DL BUN (test code = 2208) 24 MG/DL CREATININE (test code = 2214) 1.13 MG/DL eGFR (2020 CKD-EPI) (test code 62 ML/MIN/1.73 = 52137) CALC BUN/CREAT (test code = 21 RATIO [...] code = 2219) 49 U/L COMPREHENSIVE METABOLIC [id number] 00:00:00 Test Item Value Reference Range Interpretation Comments GLUCOSE (test code = 2217) 411 MG/DL BUN (test code = 2208) 24 MG/DL CREATININE (test code = 2214) 1.13 MG/DL eGFR (2020 CKD-EPI) (test code 62 ML/MIN/1.73 = 42238) CALC BUN/CREAT (test code = 21 RATIO [...] (test code = 2219) 49 U/L HEMOGLOBIN [id number] 00:00:00 Test Item Value Reference Range Interpretation Comments HEMOGLOBIN A1c (test code = 74982) 11.9 % HEMOGLOBIN [id number] 00:00:00 Test Item Value Reference Range Interpretation Comments HEMOGLOBIN A1c (test code = 92815) 11.9 % HEMOGLOBIN [id number] 00:00:00 Test Item Value Reference Range Interpretation Comments HEMOGLOBIN A1c (test code = 75408) 11.9 % LIPID [id number] 00:00:00 Test Item Value Reference Range Interpretation Comments CHOLESTEROL (test code = 2210) 176 MG/DL TRIGLYCERIDES (test code = 2232) 614 MG/DL HDL CHOLESTEROL (test code = 28 MG/DL 2220) CALC LDL CHOL (test code = 2237) (NOTE) MG/DL RISK RATIO LDL/HDL (test code = 2.79 RATIO 2238) LIPID [id number] 00:00:00 Test Item Value Reference Range Interpretation Comments CHOLESTEROL (test code = 2210) 176 MG/DL TRIGLYCERIDES (test code = 2232) 614 MG/DL HDL CHOLESTEROL (test code = 28 MG/DL 2220) CALC LDL CHOL (test code = 2237) (NOTE) MG/DL RISK RATIO LDL/HDL (test code = 2.79 RATIO 2238) CREATINE [id number] 13:35:13 Test Item Value Reference Range Interpretation Comments CK (test code = 2090170080) 71 U/L 33-194 Lab Interpretation (test code = Normal 14821-5) [facility] GLUCOSE (AUTOMATED)2021-06-18 13:07:35 Test Item Value Reference Range Interpretation Comments POCT GLU (test code = 3066144805) 351 mg/dL 70-110 H Lab Interpretation (test code = Abnormal 54578-2) [facility] >30DAYS[facility]20[facility]-18 13:04:00 Test Item Value Reference Range Interpretation Comments POCT Glu (age>30days) (test code = 351 mg/dL 70-110 A 3342) Lab Interpretation (test code = Abnormal 90729-9) [facility] (84012)2021-06-18 11:14:20 Test Item Value Reference Range Interpretation Comments NA (test code = 134 mmol/L 135-145 L 2060413069) K (test code = 4.6 mmol/L 3.5-5.0 3038081865) CL (test code = 103 mmol/L 98-108 8537407802) CO2 TOTAL (test code = 18 mmol/L 23-31 L 9055433183) AGAP (test code = 2-16 7356769005) BUN (test code = 30 mg/dL 7-23 H 2296993254) GLUCOSE (test code = 390 mg/dL 70-110 H 6465757222) CREATININE (test code = 0.93 mg/dL 0.50-1.04 9441455766) TOTAL BILI (test code = 0.4 mg/dL 0.1-1.6 4697650643) CALCIUM (test code = 10.0 mg/dL 8.6-10.6 7594533364) T PROTEIN (test code = 7.6 g/dL 6.3-8.2 2810463998) ALBUMIN (test code = 4.5 g/dL 3.5-5.0 2496543140) ALK PHOS (test code = 51 U/L 34-122 9459059444) ALTv (test code = 34 U/L 5-35 1742-6) AST(SGOT) (test code = 26 U/L 13-40 9362383932) eGFR (test code = mL/min/1.73m2 9880438812) CALVIN (test code = CALVIN) Association of [...] tests). Lab Interpretation Abnormal (test code = 75049-6) [facility] [id number] 11:06:00 Test Item Value Reference Range Interpretation Comments POCT PREG (test code = 1605) neg On board controls acceptable with yes C Line (test code = 3574) POCT PREG LOT # (test code = 3575) [id number] POCT PREG TEST DATE (test 08/10/2022 code = 3576) Lab Interpretation (test code = Normal 32607-2) [facility] with [id number] 11:00:39 Test Item Value Reference Range Interpretation Comments WBC (test code = See_Comment [Automated 7015-2) message] The sy stem which generated this result transmitted reference range : 4.30 - 11.10 10*3/?L. The reference range was not used to interpret this result as normal/abnormal . RBC (test code = See_Comment [Automated 473-0) message] The sy stem which generated this [...] RDW-SD (test code = 40.1 fL 39.0-49.9 08546-8) RDW-CV (test code = 13.2 % 12.0-15.5 788-0) PLT (test code = See_Comment [Automated 777-3) message] The sy stem which generated this result transmitted reference range : 166 - 358 10*3/ ?L. The reference r doretha was not used to interpret this result as normal/abnormal . MPV (test code = 9.5 fL 9.5-12.9 68571-1) NRBC/100 WBC (test See_Comment [Automat ed code = [id number]) message] The system which generated this result transmitted reference range : 0.0 - 10.0 /100 WBCs. The refer ence range was not u sed to interpret th is result as normal/abnormal . NRBC x10^3 (test code <0.01 See_Comment [Auto mated = [id number]) message] The s ystem which generated this result transmitted reference range : 10*3/?L. The reference range was not used to interpret this result as normal/abnormal . GRAN MAT (NEUT) % 43.7 % (test code = 770-8) IMM GRAN % (test code 0.70 % = [id number]) LYMPH % (test code = 41.9 % 736-9) MONO % (test code = 8.8 % 5905-5) EOS % (test code = 3.6 % 713-8) BASO % (test code = 1.3 % 706-2) GRAN MAT x10^3(ANC) 2.68 10*3/uL 1.88-7.09 (test code = [id number]) IMM GRAN x10^3 (test 0.04 10*3/uL 0.00-0.06 code = 6978251314) LYMPH x10^3 (test code 2.57 10*3/uL 1.32-3.29 = 731-0) MONO x10^3 (test code 0.54 10*3/uL 0.33-0.92 = 742-7) EOS x10^3 (test code = 0.22 10*3/uL 0.03-0.39 711-2) BASO x10^3 (test code 0.08 10*3/uL 0.01-0.07 H = 704-7) Lab Interpretation Abnormal (test code = 74934-4) [facility] [id number] 00:00:00 Test Item Value Reference Range Interpretation Comments ANDIE SPECIES (test code = ) NEGATIVE G. VAGINALIS (test code = 35683) NEGATIVE T. VAGINALIS (test code = 28103) NEGATIVE VAGINAL PATHOGENS DNA [id number] 00:00:00 Test Item Value Reference Range Interpretation Comments ANDIE SPECIES (test code = ) NEGATIVE G. VAGINALIS (test code = 57738) NEGATIVE T. VAGINALIS (test code = 83509) NEGATIVE VAGINAL PATHOGENS DNA [id number] 00:00:00 Test Item Value Reference Range Interpretation Comments ANDIE SPECIES (test code = 25660) NEGATIVE G. VAGINALIS (test code = 58057) NEGATIVE T. VAGINALIS (test code = 45067) NEGATIVE VAGINAL PATHOGENS DNA [id number] 00:00:00 Test Item Value Reference Range Interpretation Comments ANDIE SPECIES (test code = 59685) NEGATIVE G. VAGINALIS (test code = 07496) NEGATIVE T. VAGINALIS (test code = 39342) NEGATIVE VAGINAL PATHOGENS DNA [id number] 00:00:00 Test Item Value Reference Range Interpretation Comments ANDIE SPECIES (test code = 15767) NEGATIVE G. VAGINALIS (test code = 55825) NEGATIVE T. VAGINALIS (test code = 91666) NEGATIVE VAGINAL PATHOGENS DNA [id number] 00:00:00 Test Item Value Reference Range Interpretation Comments ANDIE SPECIES (test code = 72105) NEGATIVE G. VAGINALIS (test code = 54630) NEGATIVE T. VAGINALIS (test code = 51613) NEGATIVE VAGINAL PATHOGENS DNA [id number] 00:00:00 Test Item Value Reference Range Interpretation Comments ANDIE SPECIES (test code = 68640) NEGATIVE G. VAGINALIS (test code = 19907) NEGATIVE T. VAGINALIS (test code = 89643) NEGATIVE VAGINAL PATHOGENS DNA [id number] 00:00:00 Test Item Value Reference Range Interpretation Comments ANDIE SPECIES (test code = 40410) NEGATIVE G. VAGINALIS (test code = 51180) NEGATIVE T. VAGINALIS (test code = 37490) NEGATIVE VAGINAL PATHOGENS DNA [id number] 00:00:00 Test Item Value Reference Range Interpretation Comments ANDIE SPECIES (test code = 29693) NEGATIVE G. VAGINALIS (test code = 18888) NEGATIVE T. VAGINALIS (test code = 86429) NEGATIVE VAGINAL PATHOGENS DNA [id number] 00:00:00 Test Item Value Reference Range Interpretation Comments ANDIE SPECIES (test code = 13770) NEGATIVE G. VAGINALIS (test code = 72406) NEGATIVE T. VAGINALIS (test code = 88497) NEGATIVE VAGINAL PATHOGENS DNA [id number] 00:00:00 Test Item Value Reference Range Interpretation Comments ANDIE SPECIES (test code = 22255) NEGATIVE G. VAGINALIS (test code = 08545) NEGATIVE T. VAGINALIS (test code = 64458) NEGATIVE VAGINAL PATHOGENS DNA [id number] 00:00:00 Test Item Value Reference Range Interpretation Comments ANDIE SPECIES (test code = 55089) NEGATIVE G. VAGINALIS (test code = 50109) NEGATIVE T. VAGINALIS (test code = 33526) NEGATIVE VAGINAL PATHOGENS DNA [id number] 00:00:00 Test Item Value Reference Range Interpretation Comments ANDIE SPECIES (test code = 68114) NEGATIVE G. VAGINALIS (test code = 10223) NEGATIVE T. VAGINALIS (test code = 77900) NEGATIVE VAGINAL PATHOGENS DNA [id number] 00:00:00 Test Item Value Reference Range Interpretation Comments ANDIE SPECIES (test code = 52958) NEGATIVE G. VAGINALIS (test code = 85877) NEGATIVE T. VAGINALIS (test code = 17655) NEGATIVE VAGINAL PATHOGENS DNA [id number] 00:00:00 Test Item Value Reference Range Interpretation Comments ANDIE SPECIES (test code = 28917) NEGATIVE G. VAGINALIS (test code = 88287) NEGATIVE T. VAGINALIS (test code = 16082) NEGATIVE VAGINAL PATHOGENS DNA [id number] 00:00:00 Test Item Value Reference Range Interpretation Comments ANDIE SPECIES (test code = 46017) NEGATIVE G. VAGINALIS (test code = 36936) NEGATIVE T. VAGINALIS (test code = 85671) NEGATIVE VAGINAL PATHOGENS DNA [id number] 00:00:00 Test Item Value Reference Range Interpretation Comments ANDIE SPECIES (test code = 44345) NEGATIVE G. VAGINALIS (test code = 66405) NEGATIVE T. VAGINALIS (test code = 65958) NEGATIVE VAGINAL PATHOGENS DNA [id number] 00:00:00 Test Item Value Reference Range Interpretation Comments ANDIE SPECIES (test code = 67892) NEGATIVE G. VAGINALIS (test code = 91926) NEGATIVE T. VAGINALIS (test code = 95411) NEGATIVE VAGINAL PATHOGENS DNA [id number] 00:00:00 Test Item Value Reference Range Interpretation Comments ANDIE SPECIES (test code = 21126) NEGATIVE G. VAGINALIS (test code = 79453) NEGATIVE T. VAGINALIS (test code = 12510) NEGATIVE VAGINAL PATHOGENS DNA [id number] 00:00:00 Test Item Value Reference Range Interpretation Comments ANDIE SPECIES (test code = 68125) NEGATIVE G. VAGINALIS (test code = 53672) NEGATIVE T. VAGINALIS (test code = 09759) NEGATIVE VAGINAL PATHOGENS DNA [id number] 00:00:00 Test Item Value Reference Range Interpretation Comments ANDIE SPECIES (test code = 20370) NEGATIVE G. VAGINALIS (test code = 45286) NEGATIVE T. VAGINALIS (test code = 04708) NEGATIVE SARS-CoV-2 (COVID-19) by RT-PCR (HIGH RISK)2021-02-26 00:00:00 Test Item Value Reference Range Interpretation Comments SARS-CoV-2 INTERPRETATION (test NEGATIVE code = 83614) SOURCE (test code = 27168) NOT SPECIFIED SARS-CoV-2 (COVID-19) by RT-PCR (HIGH RISK)2021-02-26 00:00:00 Test Item Value Reference Range Interpretation Comments SARS-CoV-2 INTERPRETATION (test NEGATIVE code = 32344) SOURCE (test code = 75578) NOT SPECIFIED SARS-CoV-2 (COVID-19) by RT-PCR (HIGH RISK)2021-02-26 00:00:00 Test Item Value Reference Range Interpretation Comments SARS-CoV-2 INTERPRETATION (test NEGATIVE code = 90898) SOURCE (test code = 48825) NOT SPECIFIED SARS-CoV-2 (COVID-19) by RT-PCR (HIGH RISK)2021-02-26 00:00:00 Test Item Value Reference Range Interpretation Comments SARS-CoV-2 INTERPRETATION (test NEGATIVE code = 23246) SOURCE (test code = 44077) NOT SPECIFIED SARS-CoV-2 (COVID-19) by RT-PCR (HIGH RISK)2021-02-26 00:00:00 Test Item Value Reference Range Interpretation Comments SARS-CoV-2 INTERPRETATION (test NEGATIVE code = 13502) SOURCE (test code = 72405) NOT SPECIFIED SARS-CoV-2 (COVID-19) by RT-PCR (HIGH RISK)2021-02-26 00:00:00 Test Item Value Reference Range Interpretation Comments SARS-CoV-2 INTERPRETATION (test NEGATIVE code = 46088) SOURCE (test code = 18797) NOT SPECIFIED SARS-CoV-2 (COVID-19) by RT-PCR (HIGH RISK)2021-02-26 00:00:00 Test Item Value Reference Range Interpretation Comments SARS-CoV-2 INTERPRETATION (test NEGATIVE code = 77095) SOURCE (test code = 02534) NOT SPECIFIED SARS-CoV-2 (COVID-19) by RT-PCR (HIGH RISK)2021-02-26 00:00:00 Test Item Value Reference Range Interpretation Comments SARS-CoV-2 INTERPRETATION (test NEGATIVE code = 80118) SOURCE (test code = 57657) NOT SPECIFIED SARS-CoV-2 (COVID-19) by RT-PCR (HIGH RISK)2021-02-26 00:00:00 Test Item Value Reference Range Interpretation Comments SARS-CoV-2 INTERPRETATION (test NEGATIVE code = 46827) SOURCE (test code = 30243) NOT SPECIFIED SARS-CoV-2 (COVID-19) by RT-PCR (HIGH RISK)2021-02-26 00:00:00 Test Item Value Reference Range Interpretation Comments SARS-CoV-2 INTERPRETATION (test NEGATIVE code = 79851) SOURCE (test code = 34769) NOT SPECIFIED SARS-CoV-2 (COVID-19) by RT-PCR (HIGH RISK)2021-02-26 00:00:00 Test Item Value Reference Range Interpretation Comments SARS-CoV-2 INTERPRETATION (test NEGATIVE code = 95891) SOURCE (test code = 06100) NOT SPECIFIED SARS-CoV-2 (COVID-19) by RT-PCR (HIGH RISK)2021-02-26 00:00:00 Test Item Value Reference Range Interpretation Comments SARS-CoV-2 INTERPRETATION (test NEGATIVE code = 87982) SOURCE (test code = 71479) NOT SPECIFIED SARS-CoV-2 (COVID-19) by RT-PCR (HIGH RISK)2021-02-26 00:00:00 Test Item Value Reference Range Interpretation Comments SARS-CoV-2 INTERPRETATION (test NEGATIVE code = 24037) SOURCE (test code = 49701) NOT SPECIFIED SARS-CoV-2 (COVID-19) by RT-PCR (HIGH RISK)2021-02-26 00:00:00 Test Item Value Reference Range Interpretation Comments SARS-CoV-2 INTERPRETATION (test NEGATIVE code = 01915) SOURCE (test code = 57007) NOT SPECIFIED SARS-CoV-2 (COVID-19) by RT-PCR (HIGH RISK)2021-02-26 00:00:00 Test Item Value Reference Range Interpretation Comments SARS-CoV-2 INTERPRETATION (test NEGATIVE code = 85940) SOURCE (test code = 66760) NOT SPECIFIED SARS-CoV-2 (COVID-19) by RT-PCR (HIGH RISK)2021-02-26 00:00:00 Test Item Value Reference Range Interpretation Comments SARS-CoV-2 INTERPRETATION (test NEGATIVE code = 88519) SOURCE (test code = 09589) NOT SPECIFIED SARS-CoV-2 (COVID-19) by RT-PCR (HIGH RISK)2021-02-26 00:00:00 Test Item Value Reference Range Interpretation Comments SARS-CoV-2 INTERPRETATION (test NEGATIVE code = 42373) SOURCE (test code = 52764) NOT SPECIFIED SARS-CoV-2 (COVID-19) by RT-PCR (HIGH RISK)2021-02-26 00:00:00 Test Item Value Reference Range Interpretation Comments SARS-CoV-2 INTERPRETATION (test NEGATIVE code = 01145) SOURCE (test code = 97767) NOT SPECIFIED SARS-CoV-2 (COVID-19) by RT-PCR (HIGH RISK)2021-02-26 00:00:00 Test Item Value Reference Range Interpretation Comments SARS-CoV-2 INTERPRETATION (test NEGATIVE code = 11525) SOURCE (test code = 07278) NOT SPECIFIED SARS-CoV-2 (COVID-19) by RT-PCR (HIGH RISK)2021-02-26 00:00:00 Test Item Value Reference Range Interpretation Comments SARS-CoV-2 INTERPRETATION (test NEGATIVE code = 94200) SOURCE (test code = 64788) NOT SPECIFIED SARS-CoV-2 (COVID-19) by RT-PCR (HIGH RISK)2021-02-26 00:00:00 Test Item Value Reference Range Interpretation Comments SARS-CoV-2 INTERPRETATION (test NEGATIVE code = 55124) SOURCE (test code = 01048) NOT SPECIFIED CULTURE, URINE [ADDED]2021-02-13 00:00:00 Test Item Value Reference Range Interpretation Comments CULTURE, URINE (test SPECIMEN NUMBER: code = 51728) [id number] CULTURE, URINE [ADDED]2021-02-13 00:00:00 Test Item Value Reference Range Interpretation Comments CULTURE, URINE (test SPECIMEN NUMBER: code = 39291) [id number] CULTURE, URINE [ADDED]2021-02-13 00:00:00 Test Item Value Reference Range Interpretation Comments CULTURE, URINE (test SPECIMEN NUMBER: code = 98701) [id number] CULTURE, URINE [ADDED]2021-02-13 00:00:00 Test Item Value Reference Range Interpretation Comments CULTURE, URINE (test SPECIMEN NUMBER: code = 69839) [id number] CULTURE, URINE [ADDED]2021-02-13 00:00:00 Test Item Value Reference Range Interpretation Comments CULTURE, URINE (test SPECIMEN NUMBER: code = 55195) [id number] CULTURE, URINE [ADDED]2021-02-13 00:00:00 Test Item Value Reference Range Interpretation Comments CULTURE, URINE (test SPECIMEN NUMBER: code = 90709) [id number] CULTURE, URINE [ADDED]2021-02-13 00:00:00 Test Item Value Reference Range Interpretation Comments CULTURE, URINE (test SPECIMEN NUMBER: code = 23687) [id number] CULTURE, URINE [ADDED]2021-02-13 00:00:00 Test Item Value Reference Range Interpretation Comments CULTURE, URINE (test SPECIMEN NUMBER: code = 66970) [id number] CULTURE, URINE [ADDED]2021-02-13 00:00:00 Test Item Value Reference Range Interpretation Comments CULTURE, URINE (test SPECIMEN NUMBER: code = 56836) [id number] CULTURE, URINE [ADDED]2021-02-13 00:00:00 Test Item Value Reference Range Interpretation Comments CULTURE, URINE (test SPECIMEN NUMBER: code = 17013) [id number] CULTURE, URINE [ADDED]2021-02-13 00:00:00 Test Item Value Reference Range Interpretation Comments CULTURE, URINE (test SPECIMEN NUMBER: code = 54868) [id number] CULTURE, URINE [ADDED]2021-02-13 00:00:00 Test Item Value Reference Range Interpretation Comments CULTURE, URINE (test SPECIMEN NUMBER: code = 59929) [id number] CULTURE, URINE [ADDED]2021-02-13 00:00:00 Test Item Value Reference Range Interpretation Comments CULTURE, URINE (test SPECIMEN NUMBER: code = 73621) [id number] CULTURE, URINE [ADDED]2021-02-13 00:00:00 Test Item Value Reference Range Interpretation Comments CULTURE, URINE (test SPECIMEN NUMBER: code = 44881) [id number] CULTURE, URINE [ADDED]2021-02-13 00:00:00 Test Item Value Reference Range Interpretation Comments CULTURE, URINE (test SPECIMEN NUMBER: code = 28680) [id number] CULTURE, URINE [ADDED]2021-02-13 00:00:00 Test Item Value Reference Range Interpretation Comments CULTURE, URINE (test SPECIMEN NUMBER: code = 70504) [id number] CULTURE, URINE [ADDED]2021-02-13 00:00:00 Test Item Value Reference Range Interpretation Comments CULTURE, URINE (test SPECIMEN NUMBER: code = 47607) [id number] CULTURE, URINE [ADDED]2021-02-13 00:00:00 Test Item Value Reference Range Interpretation Comments CULTURE, URINE (test SPECIMEN NUMBER: code = 16050) [id number] CULTURE, URINE [ADDED]2021-02-13 00:00:00 Test Item Value Reference Range Interpretation Comments CULTURE, URINE (test SPECIMEN NUMBER: code = 05222) [id number] CULTURE, URINE [ADDED]2021-02-13 00:00:00 Test Item Value Reference Range Interpretation Comments CULTURE, URINE (test SPECIMEN NUMBER: code = 66264) [id number] CULTURE, URINE [ADDED]2021-02-13 00:00:00 Test Item Value Reference Range Interpretation Comments CULTURE, URINE (test SPECIMEN NUMBER: code = 66217) [id number] VAGINAL PATHOGENS DNA [id number] 00:00:00 Test Item Value Reference Range Interpretation Comments ANDIE SPECIES (test code = 88719) NEGATIVE G. VAGINALIS (test code = 72022) POSITIVE T. VAGINALIS (test code = 42152) NEGATIVE VAGINAL PATHOGENS DNA [id number] 00:00:00 Test Item Value Reference Range Interpretation Comments ANDIE SPECIES (test code = 38037) NEGATIVE G. VAGINALIS (test code = 89296) POSITIVE T. VAGINALIS (test code = 30066) NEGATIVE VAGINAL PATHOGENS DNA [id number] 00:00:00 Test Item Value Reference Range Interpretation Comments ANDIE SPECIES (test code = 81464) NEGATIVE G. VAGINALIS (test code = 04365) POSITIVE T. VAGINALIS (test code = 36328) NEGATIVE VAGINAL PATHOGENS DNA [id number] 00:00:00 Test Item Value Reference Range Interpretation Comments ANDIE SPECIES (test code = 83155) NEGATIVE G. VAGINALIS (test code = 16481) POSITIVE T. VAGINALIS (test code = 71994) NEGATIVE VAGINAL PATHOGENS DNA [id number] 00:00:00 Test Item Value Reference Range Interpretation Comments ANDIE SPECIES (test code = 93504) NEGATIVE G. VAGINALIS (test code = 58794) POSITIVE T. VAGINALIS (test code = 81562) NEGATIVE VAGINAL PATHOGENS DNA [id number] 00:00:00 Test Item Value Reference Range Interpretation Comments ANDIE SPECIES (test code = 97708) NEGATIVE G. VAGINALIS (test code = 46284) POSITIVE T. VAGINALIS (test code = 67959) NEGATIVE VAGINAL PATHOGENS DNA [id number] 00:00:00 Test Item Value Reference Range Interpretation Comments ANDIE SPECIES (test code = 03505) NEGATIVE G. VAGINALIS (test code = 99681) POSITIVE T. VAGINALIS (test code = 01672) NEGATIVE VAGINAL PATHOGENS DNA [id number] 00:00:00 Test Item Value Reference Range Interpretation Comments ANDIE SPECIES (test code = 93363) NEGATIVE G. VAGINALIS (test code = 40843) POSITIVE T. VAGINALIS (test code = 18844) NEGATIVE VAGINAL PATHOGENS DNA [id number] 00:00:00 Test Item Value Reference Range Interpretation Comments ANDIE SPECIES (test code = 12498) NEGATIVE G. VAGINALIS (test code = 77876) POSITIVE T. VAGINALIS (test code = 17566) NEGATIVE VAGINAL PATHOGENS DNA [id number] 00:00:00 Test Item Value Reference Range Interpretation Comments ANDIE SPECIES (test code = 52158) NEGATIVE G. VAGINALIS (test code = 50692) POSITIVE T. VAGINALIS (test code = 86471) NEGATIVE VAGINAL PATHOGENS DNA [id number] 00:00:00 Test Item Value Reference Range Interpretation Comments ANDIE SPECIES (test code = 47825) NEGATIVE G. VAGINALIS (test code = 37329) POSITIVE T. VAGINALIS (test code = 95555) NEGATIVE VAGINAL PATHOGENS DNA [id number] 00:00:00 Test Item Value Reference Range Interpretation Comments ANDIE SPECIES (test code = 16346) NEGATIVE G. VAGINALIS (test code = 86734) POSITIVE T. VAGINALIS (test code = 11297) NEGATIVE VAGINAL PATHOGENS DNA [id number] 00:00:00 Test Item Value Reference Range Interpretation Comments ANDIE SPECIES (test code = 55320) NEGATIVE G. VAGINALIS (test code = 36535) POSITIVE T. VAGINALIS (test code = 93244) NEGATIVE VAGINAL PATHOGENS DNA [id number] 00:00:00 Test Item Value Reference Range Interpretation Comments ANDIE SPECIES (test code = 32237) NEGATIVE G. VAGINALIS (test code = 08226) POSITIVE T. VAGINALIS (test code = 75071) NEGATIVE VAGINAL PATHOGENS DNA [id number] 00:00:00 Test Item Value Reference Range Interpretation Comments ANDIE SPECIES (test code = 13158) NEGATIVE G. VAGINALIS (test code = 21837) POSITIVE T. VAGINALIS (test code = 29174) NEGATIVE VAGINAL PATHOGENS DNA [id number] 00:00:00 Test Item Value Reference Range Interpretation Comments ANDIE SPECIES (test code = 61977) NEGATIVE G. VAGINALIS (test code = 84392) POSITIVE T. VAGINALIS (test code = 26298) NEGATIVE VAGINAL PATHOGENS DNA [id number] 00:00:00 Test Item Value Reference Range Interpretation Comments ANDIE SPECIES (test code = 79696) NEGATIVE G. VAGINALIS (test code = 11838) POSITIVE T. VAGINALIS (test code = 02985) NEGATIVE VAGINAL PATHOGENS DNA [id number] 00:00:00 Test Item Value Reference Range Interpretation Comments ANDIE SPECIES (test code = ) NEGATIVE G. VAGINALIS (test code = 06364) POSITIVE T. VAGINALIS (test code = 26820) NEGATIVE VAGINAL PATHOGENS DNA [id number] 00:00:00 Test Item Value Reference Range Interpretation Comments ANDIE SPECIES (test code = 52859) NEGATIVE G. VAGINALIS (test code = 32465) POSITIVE T. VAGINALIS (test code = 79709) NEGATIVE VAGINAL PATHOGENS DNA [id number] 00:00:00 Test Item Value Reference Range Interpretation Comments ANDIE SPECIES (test code = 28898) NEGATIVE G. VAGINALIS (test code = 12311) POSITIVE T. VAGINALIS (test code = 28491) NEGATIVE VAGINAL PATHOGENS DNA [id number] 00:00:00 Test Item Value Reference Range Interpretation Comments ANDIE SPECIES (test code = ) NEGATIVE G. VAGINALIS (test code = 85277) POSITIVE T. VAGINALIS (test code = 76607) NEGATIVE BLOOD GROUP (ABO) AND RH [id number] 00:00:00 Test Item Value Reference Range Interpretation Comments BLOOD TYPE AND RH (test code = A POSITIVE 3901) BLOOD GROUP (ABO) AND RH [id number] 00:00:00 Test Item Value Reference Range Interpretation Comments BLOOD TYPE AND RH (test code = A POSITIVE 3901) BLOOD GROUP (ABO) AND RH [id number] 00:00:00 Test Item Value Reference Range Interpretation Comments BLOOD TYPE AND RH (test code = A POSITIVE 3901) HEMOGLOBIN [id number] 00:00:00 Test Item Value Reference Range Interpretation Comments HEMOGLOBIN A1c (test code = 29443) 11.8 % HEMOGLOBIN [id number] 00:00:00 Test Item Value Reference Range Interpretation Comments HEMOGLOBIN A1c (test code = 87028) 11.8 % HEMOGLOBIN [id number] 00:00:00 Test Item Value Reference Range Interpretation Comments HEMOGLOBIN A1c (test code = 87922) 11.8 % BLOOD GROUP (ABO) AND RH [id number] 00:00:00 Test Item Value Reference Range Interpretation Comments BLOOD TYPE AND RH (test code = A POSITIVE 3901) BLOOD GROUP (ABO) AND RH [id number] 00:00:00 Test Item Value Reference Range Interpretation Comments BLOOD TYPE AND RH (test code = A POSITIVE 3901) BLOOD GROUP (ABO) AND RH [id number] 00:00:00 Test Item Value Reference Range Interpretation Comments BLOOD TYPE AND RH (test code = A POSITIVE 3901) HEMOGLOBIN [id number] 00:00:00 Test Item Value Reference Range Interpretation Comments HEMOGLOBIN A1c (test code = 98910) 11.8 % HEMOGLOBIN [id number] 00:00:00 Test Item Value Reference Range Interpretation Comments HEMOGLOBIN A1c (test code = 80628) 11.8 % HEMOGLOBIN [id number] 00:00:00 Test Item Value Reference Range Interpretation Comments HEMOGLOBIN A1c (test code = 95361) 11.8 % BLOOD GROUP (ABO) AND RH [id number] 00:00:00 Test Item Value Reference Range Interpretation Comments BLOOD TYPE AND RH (test code = A POSITIVE 3901) BLOOD GROUP (ABO) AND RH [id number] 00:00:00 Test Item Value Reference Range Interpretation Comments BLOOD TYPE AND RH (test code = A POSITIVE 3901) BLOOD GROUP (ABO) AND RH [id number] 00:00:00 Test Item Value Reference Range Interpretation Comments BLOOD TYPE AND RH (test code = A POSITIVE 3901) HEMOGLOBIN [id number] 00:00:00 Test Item Value Reference Range Interpretation Comments HEMOGLOBIN A1c (test code = 18865) 11.8 % HEMOGLOBIN [id number] 00:00:00 Test Item Value Reference Range Interpretation Comments HEMOGLOBIN A1c (test code = 06691) 11.8 % HEMOGLOBIN [id number] 00:00:00 Test Item Value Reference Range Interpretation Comments HEMOGLOBIN A1c (test code = 70457) 11.8 % BLOOD GROUP (ABO) AND RH [id number] 00:00:00 Test Item Value Reference Range Interpretation Comments BLOOD TYPE AND RH (test code = A POSITIVE 3901) BLOOD GROUP (ABO) AND RH [id number] 00:00:00 Test Item Value Reference Range Interpretation Comments BLOOD TYPE AND RH (test code = A POSITIVE 3901) BLOOD GROUP (ABO) AND RH [id number] 00:00:00 Test Item Value Reference Range Interpretation Comments BLOOD TYPE AND RH (test code = A POSITIVE 3901) HEMOGLOBIN [id number] 00:00:00 Test Item Value Reference Range Interpretation Comments HEMOGLOBIN A1c (test code = 68166) 11.8 % HEMOGLOBIN [id number] 00:00:00 Test Item Value Reference Range Interpretation Comments HEMOGLOBIN A1c (test code = 19595) 11.8 % HEMOGLOBIN [id number] 00:00:00 Test Item Value Reference Range Interpretation Comments HEMOGLOBIN A1c (test code = 08845) 11.8 % BLOOD GROUP (ABO) AND RH [id number] 00:00:00 Test Item Value Reference Range Interpretation Comments BLOOD TYPE AND RH (test code = A POSITIVE 3901) BLOOD GROUP (ABO) AND RH [id number] 00:00:00 Test Item Value Reference Range Interpretation Comments BLOOD TYPE AND RH (test code = A POSITIVE 3901) BLOOD GROUP (ABO) AND RH [id number] 00:00:00 Test Item Value Reference Range Interpretation Comments BLOOD TYPE AND RH (test code = A POSITIVE 3901) HEMOGLOBIN [id number] 00:00:00 Test Item Value Reference Range Interpretation Comments HEMOGLOBIN A1c (test code = 91851) 11.8 % HEMOGLOBIN [id number] 00:00:00 Test Item Value Reference Range Interpretation Comments HEMOGLOBIN A1c (test code = 72390) 11.8 % HEMOGLOBIN [id number] 00:00:00 Test Item Value Reference Range Interpretation Comments HEMOGLOBIN A1c (test code = 35416) 11.8 % BLOOD GROUP (ABO) AND RH [id number] 00:00:00 Test Item Value Reference Range Interpretation Comments BLOOD TYPE AND RH (test code = A POSITIVE 3901) BLOOD GROUP (ABO) AND RH [id number] 00:00:00 Test Item Value Reference Range Interpretation Comments BLOOD TYPE AND RH (test code = A POSITIVE 3901) BLOOD GROUP (ABO) AND RH [id number] 00:00:00 Test Item Value Reference Range Interpretation Comments BLOOD TYPE AND RH (test code = A POSITIVE 3901) HEMOGLOBIN [id number] 00:00:00 Test Item Value Reference Range Interpretation Comments HEMOGLOBIN A1c (test code = 18669) 11.8 % HEMOGLOBIN [id number] 00:00:00 Test Item Value Reference Range Interpretation Comments HEMOGLOBIN A1c (test code = 31444) 11.8 % HEMOGLOBIN [id number] 00:00:00 Test Item Value Reference Range Interpretation Comments HEMOGLOBIN A1c (test code = 61177) 11.8 % BLOOD GROUP (ABO) AND RH [id number] 00:00:00 Test Item Value Reference Range Interpretation Comments BLOOD TYPE AND RH (test code = A POSITIVE 3901) BLOOD GROUP (ABO) AND RH [id number] 00:00:00 Test Item Value Reference Range Interpretation Comments BLOOD TYPE AND RH (test code = A POSITIVE 3901) BLOOD GROUP (ABO) AND RH [id number] 00:00:00 Test Item Value Reference Range Interpretation Comments BLOOD TYPE AND RH (test code = A POSITIVE 3901) HEMOGLOBIN [id number] 00:00:00 Test Item Value Reference Range Interpretation Comments HEMOGLOBIN A1c (test code = 40858) 11.8 % BLOOD GROUP (ABO) AND RH [id number] 00:00:00 Test Item Value Reference Range Interpretation Comments BLOOD TYPE AND RH (test code = A POSITIVE 3901) HEMOGLOBIN [id number] 00:00:00 Test Item Value Reference Range Interpretation Comments HEMOGLOBIN A1c (test code = 39360) 11.8 % HEMOGLOBIN [id number] 00:00:00 Test Item Value Reference Range Interpretation Comments HEMOGLOBIN A1c (test code = 90193) 11.8 % BLOOD GROUP (ABO) AND RH [id number] 00:00:00 Test Item Value Reference Range Interpretation Comments BLOOD TYPE AND RH (test code = A POSITIVE 3901) HEMOGLOBIN [id number] 00:00:00 Test Item Value Reference Range Interpretation Comments HEMOGLOBIN A1c (test code = 50396) 11.8 % HEMOGLOBIN [id number] 00:00:00 Test Item Value Reference Range Interpretation Comments HEMOGLOBIN A1c (test code = 47888) 11.8 % BLOOD GROUP (ABO) AND RH [id number] 00:00:00 Test Item Value Reference Range Interpretation Comments BLOOD TYPE AND RH (test code = A POSITIVE 3901) BLOOD GROUP (ABO) AND RH [id number] 00:00:00 Test Item Value Reference Range Interpretation Comments BLOOD TYPE AND RH (test code = A POSITIVE 3901) BLOOD GROUP (ABO) AND RH [id number] 00:00:00 Test Item Value Reference Range Interpretation Comments BLOOD TYPE AND RH (test code = A POSITIVE 3901) HEMOGLOBIN [id number] 00:00:00 Test Item Value Reference Range Interpretation Comments HEMOGLOBIN A1c (test code = 57079) 11.8 % HEMOGLOBIN [id number] 00:00:00 Test Item Value Reference Range Interpretation Comments HEMOGLOBIN A1c (test code = 83392) 11.8 % HEMOGLOBIN [id number] 00:00:00 Test Item Value Reference Range Interpretation Comments HEMOGLOBIN A1c (test code = 26673) 11.8 % BLOOD GROUP (ABO) AND RH [id number] 00:00:00 Test Item Value Reference Range Interpretation Comments BLOOD TYPE AND RH (test code = A POSITIVE 3901) BLOOD GROUP (ABO) AND RH [id number] 00:00:00 Test Item Value Reference Range Interpretation Comments BLOOD TYPE AND RH (test code = A POSITIVE 3901) BLOOD GROUP (ABO) AND RH [id number] 00:00:00 Test Item Value Reference Range Interpretation Comments BLOOD TYPE AND RH (test code = A POSITIVE 3901) HEMOGLOBIN [id number] 00:00:00 Test Item Value Reference Range Interpretation Comments HEMOGLOBIN A1c (test code = 16886) 11.8 % HEMOGLOBIN [id number] 00:00:00 Test Item Value Reference Range Interpretation Comments HEMOGLOBIN A1c (test code = 32779) 11.8 % HEMOGLOBIN [id number] 00:00:00 Test Item Value Reference Range Interpretation Comments HEMOGLOBIN A1c (test code = 44184) 11.8 % BLOOD GROUP (ABO) AND RH [id number] 00:00:00 Test Item Value Reference Range Interpretation Comments BLOOD TYPE AND RH (test code = A POSITIVE 3901) BLOOD GROUP (ABO) AND RH [id number] 00:00:00 Test Item Value Reference Range Interpretation Comments BLOOD TYPE AND RH (test code = A POSITIVE 3901) BLOOD GROUP (ABO) AND RH [id number] 00:00:00 Test Item Value Reference Range Interpretation Comments BLOOD TYPE AND RH (test code = A POSITIVE 3901) HEMOGLOBIN [id number] 00:00:00 Test Item Value Reference Range Interpretation Comments HEMOGLOBIN A1c (test code = 39219) 11.8 % HEMOGLOBIN [id number] 00:00:00 Test Item Value Reference Range Interpretation Comments HEMOGLOBIN A1c (test code = 20849) 11.8 % HEMOGLOBIN [id number] 00:00:00 Test Item Value Reference Range Interpretation Comments HEMOGLOBIN A1c (test code = 50732) 11.8 % COMPREHENSIVE METABOLIC [id number] 00:00:00 Test Item Value Reference Range Interpretation Comments GLUCOSE (test code = 2217) 277 MG/DL BUN (test code = 2208) 26 MG/DL CREATININE (test code = 2214) 1.04 MG/DL eGFR AMER. (test code 77 ML/MIN/1.73 = 92428) eGFR NON- AMER. (test 66 ML/MIN/1.73 code = 35979) CALC BUN/CREAT (test code = 25 RATIO [...] code = 2219) 51 U/L COMPREHENSIVE METABOLIC [id number] 00:00:00 Test Item Value Reference Range Interpretation Comments GLUCOSE (test code = 2217) 277 MG/DL BUN (test code = 2208) 26 MG/DL CREATININE (test code = 2214) 1.04 MG/DL eGFR AMER. (test code 77 ML/MIN/1.73 = 14991) eGFR NON- AMER. (test 66 ML/MIN/1.73 code = 00838) CALC BUN/CREAT (test code = 25 RATIO [...] (test code = 2219) 51 U/L CULTURE, [id number] 00:00:00 Test Item Value Reference Range Interpretation Comments CULTURE, URINE (test SPECIMEN NUMBER: code = 23875) [id number] CULTURE, [id number] 00:00:00 Test Item Value Reference Range Interpretation Comments CULTURE, URINE (test SPECIMEN NUMBER: code = 37171) [id number] COMPREHENSIVE METABOLIC [id number] 00:00:00 Test Item Value Reference Range Interpretation Comments GLUCOSE (test code = 2217) 277 MG/DL BUN (test code = 2208) 26 MG/DL CREATININE (test code = 2214) 1.04 MG/DL eGFR AMER. (test code 77 ML/MIN/1.73 = 56947) eGFR NON- AMER. (test 66 ML/MIN/1.73 code = 64393) CALC BUN/CREAT (test code = 25 RATIO [...] code = 2219) 51 U/L COMPREHENSIVE METABOLIC [id number] 00:00:00 Test Item Value Reference Range Interpretation Comments GLUCOSE (test code = 2217) 277 MG/DL BUN (test code = 2208) 26 MG/DL CREATININE (test code = 2214) 1.04 MG/DL eGFR AMER. (test code 77 ML/MIN/1.73 = 46334) eGFR NON- AMER. (test 66 ML/MIN/1.73 code = 49679) CALC BUN/CREAT (test code = 25 RATIO [...] (test code = 2219) 51 U/L CULTURE, [id number] 00:00:00 Test Item Value Reference Range Interpretation Comments CULTURE, URINE (test SPECIMEN NUMBER: code = 27416) [id number] CULTURE, [id number] 00:00:00 Test Item Value Reference Range Interpretation Comments CULTURE, URINE (test SPECIMEN NUMBER: code = 17479) [id number] COMPREHENSIVE METABOLIC [id number] 00:00:00 Test Item Value Reference Range Interpretation Comments GLUCOSE (test code = 2217) 277 MG/DL BUN (test code = 2208) 26 MG/DL CREATININE (test code = 2214) 1.04 MG/DL eGFR AMER. (test code 77 ML/MIN/1.73 = 32379) eGFR NON- AMER. (test 66 ML/MIN/1.73 code = 79883) CALC BUN/CREAT (test code = 25 RATIO [...] code = 2219) 51 U/L COMPREHENSIVE METABOLIC [id number] 00:00:00 Test Item Value Reference Range Interpretation Comments GLUCOSE (test code = 2217) 277 MG/DL BUN (test code = 2208) 26 MG/DL CREATININE (test code = 2214) 1.04 MG/DL eGFR AMER. (test code 77 ML/MIN/1.73 = 60612) eGFR NON- AMER. (test 66 ML/MIN/1.73 code = 01109) CALC BUN/CREAT (test code = 25 RATIO [...] BILIRUBIN, TOTAL (test code = 0.3 MG/DL 7) ALKALINE PHOSPHATASE (test 44 U/L code = 2204) AST (test code = 2218) 32 U/L ALT (test code = 2219) 51 U/L CULTURE, [id number] 00:00:00 Test Item Value Reference Range Interpretation Comments CULTURE, URINE (test SPECIMEN NUMBER: code = 57866) [id number] CULTURE, [id number] 00:00:00 Test Item Value Reference Range Interpretation Comments CULTURE, URINE (test SPECIMEN NUMBER: code = 11608) [id number] COMPREHENSIVE METABOLIC [id number] 00:00:00 Test Item Value Reference Range Interpretation Comments GLUCOSE (test code = 2217) 277 MG/DL BUN (test code = 2208) 26 MG/DL CREATININE (test code = 2214) 1.04 MG/DL eGFR AMER. (test code 77 ML/MIN/1.73 = 78032) eGFR NON- AMER. (test 66 ML/MIN/1.73 code = 60111) CALC BUN/CREAT (test code = 25 RATIO [...] code = 2219) 51 U/L COMPREHENSIVE METABOLIC [id number] 00:00:00 Test Item Value Reference Range Interpretation Comments GLUCOSE (test code = 2217) 277 MG/DL BUN (test code = 2208) 26 MG/DL CREATININE (test code = 2214) 1.04 MG/DL eGFR AMER. (test code 77 ML/MIN/1.73 = 59407) eGFR NON- AMER. (test 66 ML/MIN/1.73 code = 26560) CALC BUN/CREAT (test code = 25 RATIO [...] (test code = 2219) 51 U/L CULTURE, [id number] 00:00:00 Test Item Value Reference Range Interpretation Comments CULTURE, URINE (test SPECIMEN NUMBER: code = 92937) [id number] CULTURE, [id number] 00:00:00 Test Item Value Reference Range Interpretation Comments CULTURE, URINE (test SPECIMEN NUMBER: code = 85017) [id number] COMPREHENSIVE METABOLIC [id number] 00:00:00 Test Item Value Reference Range Interpretation Comments GLUCOSE (test code = 2217) 277 MG/DL BUN (test code = 2208) 26 MG/DL CREATININE (test code = 2214) 1.04 MG/DL eGFR AMER. (test code 77 ML/MIN/1.73 = 74640) eGFR NON- AMER. (test 66 ML/MIN/1.73 code = 97094) CALC BUN/CREAT (test code = 25 RATIO [...] code = 2219) 51 U/L COMPREHENSIVE METABOLIC [id number] 00:00:00 Test Item Value Reference Range Interpretation Comments GLUCOSE (test code = 2217) 277 MG/DL BUN (test code = 2208) 26 MG/DL CREATININE (test code = 2214) 1.04 MG/DL eGFR AMER. (test code 77 ML/MIN/1.73 = 17183) eGFR NON- AMER. (test 66 ML/MIN/1.73 code = 39628) CALC BUN/CREAT (test code = 25 RATIO [...] (test code = 2219) 51 U/L CULTURE, [id number] 00:00:00 Test Item Value Reference Range Interpretation Comments CULTURE, URINE (test SPECIMEN NUMBER: code = 69520) [id number] CULTURE, [id number] 00:00:00 Test Item Value Reference Range Interpretation Comments CULTURE, URINE (test SPECIMEN NUMBER: code = 26562) [id number] COMPREHENSIVE METABOLIC [id number] 00:00:00 Test Item Value Reference Range Interpretation Comments GLUCOSE (test code = 2217) 277 MG/DL BUN (test code = 2208) 26 MG/DL CREATININE (test code = 2214) 1.04 MG/DL eGFR AMER. (test code 77 ML/MIN/1.73 = 15262) eGFR NON- AMER. (test 66 ML/MIN/1.73 code = 06175) CALC BUN/CREAT (test code = 25 RATIO [...] code = 2219) 51 U/L COMPREHENSIVE METABOLIC [id number] 00:00:00 Test Item Value Reference Range Interpretation Comments GLUCOSE (test code = 2217) 277 MG/DL BUN (test code = 2208) 26 MG/DL CREATININE (test code = 2214) 1.04 MG/DL eGFR AMER. (test code 77 ML/MIN/1.73 = 25863) eGFR NON- AMER. (test 66 ML/MIN/1.73 code = 91121) CALC BUN/CREAT (test code = 25 RATIO [...] (test code = 2219) 51 U/L CULTURE, [id number] 00:00:00 Test Item Value Reference Range Interpretation Comments CULTURE, URINE (test SPECIMEN NUMBER: code = 34760) [id number] CULTURE, [id number] 00:00:00 Test Item Value Reference Range Interpretation Comments CULTURE, URINE (test SPECIMEN NUMBER: code = 69893) [id number] COMPREHENSIVE METABOLIC [id number] 00:00:00 Test Item Value Reference Range Interpretation Comments GLUCOSE (test code = 2217) 277 MG/DL BUN (test code = 2208) 26 MG/DL CREATININE (test code = 2214) 1.04 MG/DL eGFR AMER. (test code 77 ML/MIN/1.73 = 23701) eGFR NON- AMER. (test 66 ML/MIN/1.73 code = 56967) CALC BUN/CREAT (test code = 25 RATIO [...] code = 2219) 51 U/L COMPREHENSIVE METABOLIC [id number] 00:00:00 Test Item Value Reference Range Interpretation Comments GLUCOSE (test code = 2217) 277 MG/DL BUN (test code = 2208) 26 MG/DL CREATININE (test code = 2214) 1.04 MG/DL eGFR AMER. (test code 77 ML/MIN/1.73 = 00728) eGFR NON- AMER. (test 66 ML/MIN/1.73 code = 54007) CALC BUN/CREAT (test code = 25 RATIO [...] (test code = 2219) 51 U/L CULTURE, [id number] 00:00:00 Test Item Value Reference Range Interpretation Comments CULTURE, URINE (test SPECIMEN NUMBER: code = 72076) [id number] CULTURE, [id number] 00:00:00 Test Item Value Reference Range Interpretation Comments CULTURE, URINE (test SPECIMEN NUMBER: code = 82464) [id number] COMPREHENSIVE METABOLIC [id number] 00:00:00 Test Item Value Reference Range Interpretation Comments GLUCOSE (test code = 2217) 277 MG/DL BUN (test code = 2208) 26 MG/DL CREATININE (test code = 2214) 1.04 MG/DL eGFR AMER. (test code 77 ML/MIN/1.73 = 69758) eGFR NON- AMER. (test 66 ML/MIN/1.73 code = 29089) CALC BUN/CREAT (test code = 25 RATIO [...] (test code = 2219) 51 U/L CULTURE, [id number] 00:00:00 Test Item Value Reference Range Interpretation Comments CULTURE, URINE (test SPECIMEN NUMBER: code = 55044) [id number] COMPREHENSIVE METABOLIC [id number] 00:00:00 Test Item Value Reference Range Interpretation Comments GLUCOSE (test code = 2217) 277 MG/DL BUN (test code = 2208) 26 MG/DL CREATININE (test code = 2214) 1.04 MG/DL eGFR AMER. (test code 77 ML/MIN/1.73 = 62019) eGFR NON- AMER. (test 66 ML/MIN/1.73 code = 39926) CALC BUN/CREAT (test code = 25 RATIO [...] code = 2219) 51 U/L COMPREHENSIVE METABOLIC [id number] 00:00:00 Test Item Value Reference Range Interpretation Comments GLUCOSE (test code = 2217) 277 MG/DL BUN (test code = 2208) 26 MG/DL CREATININE (test code = 2214) 1.04 MG/DL eGFR AMER. (test code 77 ML/MIN/1.73 = 48736) eGFR NON- AMER. (test 66 ML/MIN/1.73 code = 83194) CALC BUN/CREAT (test code = 25 RATIO [...] (test code = 2219) 51 U/L CULTURE, [id number] 00:00:00 Test Item Value Reference Range Interpretation Comments CULTURE, URINE (test SPECIMEN NUMBER: code = 53316) [id number] CULTURE, [id number] 00:00:00 Test Item Value Reference Range Interpretation Comments CULTURE, URINE (test SPECIMEN NUMBER: code = 51208) [id number] COMPREHENSIVE METABOLIC [id number] 00:00:00 Test Item Value Reference Range Interpretation Comments GLUCOSE (test code = 2217) 277 MG/DL BUN (test code = 2208) 26 MG/DL CREATININE (test code = 2214) 1.04 MG/DL eGFR AMER. (test code 77 ML/MIN/1.73 = 11882) eGFR NON- AMER. (test 66 ML/MIN/1.73 code = 19475) CALC BUN/CREAT (test code = 25 RATIO [...] code = 2219) 51 U/L COMPREHENSIVE METABOLIC [id number] 00:00:00 Test Item Value Reference Range Interpretation Comments GLUCOSE (test code = 2217) 277 MG/DL BUN (test code = 2208) 26 MG/DL CREATININE (test code = 2214) 1.04 MG/DL eGFR AMER. (test code 77 ML/MIN/1.73 = 01816) eGFR NON- AMER. (test 66 ML/MIN/1.73 code = 02950) CALC BUN/CREAT (test code = 25 RATIO [...] (test code = 2219) 51 U/L CULTURE, [id number] 00:00:00 Test Item Value Reference Range Interpretation Comments CULTURE, URINE (test SPECIMEN NUMBER: code = 60559) [id number] CULTURE, [id number] 00:00:00 Test Item Value Reference Range Interpretation Comments CULTURE, URINE (test SPECIMEN NUMBER: code = 00228) [id number] COMPREHENSIVE METABOLIC [id number] 00:00:00 Test Item Value Reference Range Interpretation Comments GLUCOSE (test code = 2217) 277 MG/DL BUN (test code = 2208) 26 MG/DL CREATININE (test code = 2214) 1.04 MG/DL eGFR AMER. (test code 77 ML/MIN/1.73 = 90441) eGFR NON- AMER. (test 66 ML/MIN/1.73 code = 90349) CALC BUN/CREAT (test code = 25 RATIO [...] code = 2219) 51 U/L COMPREHENSIVE METABOLIC [id number] 00:00:00 Test Item Value Reference Range Interpretation Comments GLUCOSE (test code = 2217) 277 MG/DL BUN (test code = 2208) 26 MG/DL CREATININE (test code = 2214) 1.04 MG/DL eGFR AMER. (test code 77 ML/MIN/1.73 = 80123) eGFR NON- AMER. (test 66 ML/MIN/1.73 code = 41157) CALC BUN/CREAT (test code = 25 RATIO [...] BILIRUBIN, TOTAL (test code = 0.3 MG/DL 7) ALKALINE PHOSPHATASE (test 44 U/L code = 2204) AST (test code = 2218) 32 U/L ALT (test code = 2219) 51 U/L CULTURE, [id number] 00:00:00 Test Item Value Reference Range Interpretation Comments CULTURE, URINE (test SPECIMEN NUMBER: code = 95137) [id number] CULTURE, [id number] 00:00:00 Test Item Value Reference Range Interpretation Comments CULTURE, URINE (test SPECIMEN NUMBER: code = 06702) [id number] CBC W/AUTO [id number] 00:00:00 Test Item Value Reference Range Interpretation [...] NUCLEATED RBCS (test code = 0.00 K/UL 79567) CBC W/AUTO [id number] 00:00:00 Test Item Value Reference Range Interpretation [...] NUCLEATED RBCS (test code = 0.00 K/UL 53703) CBC W/AUTO [id number] 00:00:00 Test Item Value Reference Range Interpretation [...] NUCLEATED RBCS (test code = 0.00 K/UL 76214) CBC W/AUTO [id number] 00:00:00 Test Item Value Reference Range Interpretation [...] NUCLEATED RBCS (test code = 0.00 K/UL 28737) CBC W/AUTO [id number] 00:00:00 Test Item Value Reference Range Interpretation [...] NUCLEATED RBCS (test code = 0.00 K/UL 19232) CBC W/AUTO [id number] 00:00:00 Test Item Value Reference Range Interpretation [...] NUCLEATED RBCS (test code = 0.00 K/UL 93306) CBC W/AUTO [id number] 00:00:00 Test Item Value Reference Range Interpretation [...] NUCLEATED RBCS (test code = 0.00 K/UL 68338) CBC W/AUTO [id number] 00:00:00 Test Item Value Reference Range Interpretation [...] NUCLEATED RBCS (test code = 0.00 K/UL 24733) CBC W/AUTO [id number] 00:00:00 Test Item Value Reference Range Interpretation [...] NUCLEATED RBCS (test code = 0.00 K/UL 47422) CBC W/AUTO [id number] 00:00:00 Test Item Value Reference Range Interpretation [...] NUCLEATED RBCS (test code = 0.00 K/UL 28603) CBC W/AUTO [id number] 00:00:00 Test Item Value Reference Range Interpretation [...] NUCLEATED RBCS (test code = 0.00 K/UL 62829) CBC W/AUTO [id number] 00:00:00 Test Item Value Reference Range Interpretation [...] NUCLEATED RBCS (test code = 0.00 K/UL 40444) CBC W/AUTO [id number] 00:00:00 Test Item Value Reference Range Interpretation [...] NUCLEATED RBCS (test code = 0.00 K/UL 35291) CBC W/AUTO [id number] 00:00:00 Test Item Value Reference Range Interpretation [...] NUCLEATED RBCS (test code = 0.00 K/UL 35392) CBC W/AUTO [id number] 00:00:00 Test Item Value Reference Range Interpretation [...] NUCLEATED RBCS (test code = 0.00 K/UL 88129) CBC W/AUTO [id number] 00:00:00 Test Item Value Reference Range Interpretation [...] NUCLEATED RBCS (test code = 0.00 K/UL 57389) CBC W/AUTO [id number] 00:00:00 Test Item Value Reference Range Interpretation [...] NUCLEATED RBCS (test code = 0.00 K/UL 37623) CBC W/AUTO [id number] 00:00:00 Test Item Value Reference Range Interpretation [...] NUCLEATED RBCS (test code = 0.00 K/UL 82934) CBC W/AUTO [id number] 00:00:00 Test Item Value Reference Range Interpretation [...] NUCLEATED RBCS (test code = 0.00 K/UL 36281) CBC W/AUTO [id number] 00:00:00 Test Item Value Reference Range Interpretation [...] NUCLEATED RBCS (test code = 0.00 K/UL 78879) CBC W/AUTO [id number] 00:00:00 Test Item Value Reference Range Interpretation [...] NUCLEATED RBCS (test code = 0.00 K/UL 81660) CBC W/AUTO [id number] 00:00:00 Test Item Value Reference Range Interpretation [...] NUCLEATED RBCS (test code = 0.00 K/UL 55906) CBC W/AUTO [id number] 00:00:00 Test Item Value Reference Range Interpretation [...] NUCLEATED RBCS (test code = 0.00 K/UL 13233) CBC W/AUTO [id number] 00:00:00 Test Item Value Reference Range Interpretation [...] NUCLEATED RBCS (test code = 0.00 K/UL 75877) CBC W/AUTO [id number] 00:00:00 Test Item Value Reference Range Interpretation [...] NUCLEATED RBCS (test code = 0.00 K/UL 76458) CBC W/AUTO [id number] 00:00:00 Test Item Value Reference Range Interpretation [...] NUCLEATED RBCS (test code = 0.00 K/UL 56367) CBC W/AUTO [id number] 00:00:00 Test Item Value Reference Range Interpretation [...] NUCLEATED RBCS (test code = 0.00 K/UL 66349) CBC W/AUTO [id number] 00:00:00 Test Item Value Reference Range Interpretation [...] NUCLEATED RBCS (test code = 0.00 K/UL 26718) CBC W/AUTO [id number] 00:00:00 Test Item Value Reference Range Interpretation [...] NUCLEATED RBCS (test code = 0.00 K/UL 67295) CBC W/AUTO [id number] 00:00:00 Test Item Value Reference Range Interpretation [...] NUCLEATED RBCS (test code = 0.00 K/UL 49013) CBC W/AUTO [id number] 00:00:00 Test Item Value Reference Range Interpretation [...] NUCLEATED RBCS (test code = 0.00 K/UL 49332) CBC W/AUTO [id number] 00:00:00 Test Item Value Reference Range Interpretation [...] NUCLEATED RBCS (test code = 0.00 K/UL 19476) VAGINAL PATHOGENS DNA [id number] 00:00:00 Test Item Value Reference Range Interpretation Comments ANDIE SPECIES (test code = ) NEGATIVE G. VAGINALIS (test code = 51114) NEGATIVE T. VAGINALIS (test code = 67560) NEGATIVE VAGINAL PATHOGENS DNA [id number] 00:00:00 Test Item Value Reference Range Interpretation Comments ANDIE SPECIES (test code = 81179) NEGATIVE G. VAGINALIS (test code = 44735) NEGATIVE T. VAGINALIS (test code = 24246) NEGATIVE VAGINAL PATHOGENS DNA [id number] 00:00:00 Test Item Value Reference Range Interpretation Comments ANDIE SPECIES (test code = 32986) NEGATIVE G. VAGINALIS (test code = 07727) NEGATIVE T. VAGINALIS (test code = 09107) NEGATIVE VAGINAL PATHOGENS DNA [id number] 00:00:00 Test Item Value Reference Range Interpretation Comments ANDIE SPECIES (test code = 45671) NEGATIVE G. VAGINALIS (test code = 26725) NEGATIVE T. VAGINALIS (test code = 40569) NEGATIVE VAGINAL PATHOGENS DNA [id number] 00:00:00 Test Item Value Reference Range Interpretation Comments ANDIE SPECIES (test code = 24388) NEGATIVE G. VAGINALIS (test code = 03585) NEGATIVE T. VAGINALIS (test code = 21054) NEGATIVE VAGINAL PATHOGENS DNA [id number] 00:00:00 Test Item Value Reference Range Interpretation Comments ANDIE SPECIES (test code = 68888) NEGATIVE G. VAGINALIS (test code = 43407) NEGATIVE T. VAGINALIS (test code = 47001) NEGATIVE VAGINAL PATHOGENS DNA [id number] 00:00:00 Test Item Value Reference Range Interpretation Comments ANDIE SPECIES (test code = 38080) NEGATIVE G. VAGINALIS (test code = 19680) NEGATIVE T. VAGINALIS (test code = 94688) NEGATIVE VAGINAL PATHOGENS DNA [id number] 00:00:00 Test Item Value Reference Range Interpretation Comments ANDIE SPECIES (test code = 07249) NEGATIVE G. VAGINALIS (test code = 12688) NEGATIVE T. VAGINALIS (test code = 68910) NEGATIVE VAGINAL PATHOGENS DNA [id number] 00:00:00 Test Item Value Reference Range Interpretation Comments ANIDE SPECIES (test code = 77860) NEGATIVE G. VAGINALIS (test code = 65687) NEGATIVE T. VAGINALIS (test code = 50069) NEGATIVE VAGINAL PATHOGENS DNA [id number] 00:00:00 Test Item Value Reference Range Interpretation Comments ANDIE SPECIES (test code = 90020) NEGATIVE G. VAGINALIS (test code = 31226) NEGATIVE T. VAGINALIS (test code = 68442) NEGATIVE VAGINAL PATHOGENS DNA [id number] 00:00:00 Test Item Value Reference Range Interpretation Comments ANDIE SPECIES (test code = 90248) NEGATIVE G. VAGINALIS (test code = 41997) NEGATIVE T. VAGINALIS (test code = 16459) NEGATIVE VAGINAL PATHOGENS DNA [id number] 00:00:00 Test Item Value Reference Range Interpretation Comments ANDIE SPECIES (test code = 42964) NEGATIVE G. VAGINALIS (test code = 43805) NEGATIVE T. VAGINALIS (test code = 19599) NEGATIVE VAGINAL PATHOGENS DNA [id number] 00:00:00 Test Item Value Reference Range Interpretation Comments ANDIE SPECIES (test code = 33866) NEGATIVE G. VAGINALIS (test code = 40700) NEGATIVE T. VAGINALIS (test code = ) NEGATIVE VAGINAL PATHOGENS DNA [id number] 00:00:00 Test Item Value Reference Range Interpretation Comments ANDIE SPECIES (test code = 24833) NEGATIVE G. VAGINALIS (test code = 41437) NEGATIVE T. VAGINALIS (test code = 37180) NEGATIVE VAGINAL PATHOGENS DNA [id number] 00:00:00 Test Item Value Reference Range Interpretation Comments ANDIE SPECIES (test code = 28358) NEGATIVE G. VAGINALIS (test code = 15671) NEGATIVE T. VAGINALIS (test code = 49281) NEGATIVE VAGINAL PATHOGENS DNA [id number] 00:00:00 Test Item Value Reference Range Interpretation Comments ANDIE SPECIES (test code = 18577) NEGATIVE G. VAGINALIS (test code = 97768) NEGATIVE T. VAGINALIS (test code = 21148) NEGATIVE VAGINAL PATHOGENS DNA [id number] 00:00:00 Test Item Value Reference Range Interpretation Comments ANDIE SPECIES (test code = 13344) NEGATIVE G. VAGINALIS (test code = 10134) NEGATIVE T. VAGINALIS (test code = 61324) NEGATIVE VAGINAL PATHOGENS DNA [id number] 00:00:00 Test Item Value Reference Range Interpretation Comments ANDIE SPECIES (test code = 15635) NEGATIVE G. VAGINALIS (test code = 60762) NEGATIVE T. VAGINALIS (test code = 69601) NEGATIVE VAGINAL PATHOGENS DNA [id number] 00:00:00 Test Item Value Reference Range Interpretation Comments ANDIE SPECIES (test code = 63773) NEGATIVE G. VAGINALIS (test code = 33785) NEGATIVE T. VAGINALIS (test code = 15668) NEGATIVE VAGINAL PATHOGENS DNA [id number] 00:00:00 Test Item Value Reference Range Interpretation Comments ANDIE SPECIES (test code = 20209) NEGATIVE G. VAGINALIS (test code = 41033) NEGATIVE T. VAGINALIS (test code = 77683) NEGATIVE VAGINAL PATHOGENS DNA [id number] 00:00:00 Test Item Value Reference Range Interpretation Comments ANDIE SPECIES (test code = 71700) NEGATIVE G. VAGINALIS (test code = 97339) NEGATIVE T. VAGINALIS (test code = 38628) NEGATIVE HEMOGLOBIN [id number] 00:00:00 Test Item Value Reference Range Interpretation Comments HEMOGLOBIN A1c (test code = 02726) 11.4 % HEMOGLOBIN [id number] 00:00:00 Test Item Value Reference Range Interpretation Comments HEMOGLOBIN A1c (test code = 77498) 11.4 % HEMOGLOBIN [id number] 00:00:00 Test Item Value Reference Range Interpretation Comments HEMOGLOBIN A1c (test code = 38049) 11.4 % LIPID [id number] 00:00:00 Test Item Value Reference Range Interpretation Comments CHOLESTEROL (test code = 2210) 162 MG/DL TRIGLYCERIDES (test code = 2232) 387 MG/DL HDL CHOLESTEROL (test code = 2220) 30 MG/DL CALC LDL CHOL (test code = 2237) 80 MG/DL RISK RATIO LDL/HDL (test code = 2.67 RATIO 2238) LIPID [id number] 00:00:00 Test Item Value Reference Range Interpretation Comments CHOLESTEROL (test code = 2210) 162 MG/DL TRIGLYCERIDES (test code = 2232) 387 MG/DL HDL CHOLESTEROL (test code = 2220) 30 MG/DL CALC LDL CHOL (test code = 2237) 80 MG/DL RISK RATIO LDL/HDL (test code = 2.67 RATIO 2238) COMPREHENSIVE METABOLIC [id number] 00:00:00 Test Item Value Reference Range Interpretation Comments GLUCOSE (test code = 2217) 236 MG/DL BUN (test code = 2208) 14 MG/DL CREATININE (test code = 2214) 0.71 MG/DL eGFR AMER. (test code 122 ML/MIN/1.73 = 58188) eGFR NON- AMER. (test 105 ML/MIN/1.73 code = 41988) CALC BUN/CREAT (test code = 20 RATIO [...] code = 2219) 69 U/L COMPREHENSIVE METABOLIC [id number] 00:00:00 Test Item Value Reference Range Interpretation Comments GLUCOSE (test code = 2217) 236 MG/DL BUN (test code = 2208) 14 MG/DL CREATININE (test code = 2214) 0.71 MG/DL eGFR AMER. (test code 122 ML/MIN/1.73 = 77687) eGFR NON- AMER. (test 105 ML/MIN/1.73 code = 00502) CALC BUN/CREAT (test code = 20 RATIO [...] (test code = 2219) 69 U/L HEMOGLOBIN [id number] 00:00:00 Test Item Value Reference Range Interpretation Comments HEMOGLOBIN A1c (test code = 05875) 11.4 % HEMOGLOBIN [id number] 00:00:00 Test Item Value Reference Range Interpretation Comments HEMOGLOBIN A1c (test code = 80832) 11.4 % HEMOGLOBIN [id number] 00:00:00 Test Item Value Reference Range Interpretation Comments HEMOGLOBIN A1c (test code = 10719) 11.4 % LIPID [id number] 00:00:00 Test Item Value Reference Range Interpretation Comments CHOLESTEROL (test code = 2210) 162 MG/DL TRIGLYCERIDES (test code = 2232) 387 MG/DL HDL CHOLESTEROL (test code = 2220) 30 MG/DL CALC LDL CHOL (test code = 2237) 80 MG/DL RISK RATIO LDL/HDL (test code = 2.67 RATIO 2238) LIPID [id number] 00:00:00 Test Item Value Reference Range Interpretation Comments CHOLESTEROL (test code = 2210) 162 MG/DL TRIGLYCERIDES (test code = 2232) 387 MG/DL HDL CHOLESTEROL (test code = 2220) 30 MG/DL CALC LDL CHOL (test code = 2237) 80 MG/DL RISK RATIO LDL/HDL (test code = 2.67 RATIO 2238) COMPREHENSIVE METABOLIC [id number] 00:00:00 Test Item Value Reference Range Interpretation Comments GLUCOSE (test code = 2217) 236 MG/DL BUN (test code = 2208) 14 MG/DL CREATININE (test code = 2214) 0.71 MG/DL eGFR AMER. (test code 122 ML/MIN/1.73 = 45795) eGFR NON- AMER. (test 105 ML/MIN/1.73 code = 26718) CALC BUN/CREAT (test code = 20 RATIO [...] code = 2219) 69 U/L COMPREHENSIVE METABOLIC [id number] 00:00:00 Test Item Value Reference Range Interpretation Comments GLUCOSE (test code = 2217) 236 MG/DL BUN (test code = 2208) 14 MG/DL CREATININE (test code = 2214) 0.71 MG/DL eGFR AMER. (test code 122 ML/MIN/1.73 = 30597) eGFR NON- AMER. (test 105 ML/MIN/1.73 code = 37961) CALC BUN/CREAT (test code = 20 RATIO [...] (test code = 2219) 69 U/L HEMOGLOBIN [id number] 00:00:00 Test Item Value Reference Range Interpretation Comments HEMOGLOBIN A1c (test code = 76206) 11.4 % HEMOGLOBIN [id number] 00:00:00 Test Item Value Reference Range Interpretation Comments HEMOGLOBIN A1c (test code = 79534) 11.4 % HEMOGLOBIN [id number] 00:00:00 Test Item Value Reference Range Interpretation Comments HEMOGLOBIN A1c (test code = 17287) 11.4 % LIPID [id number] 00:00:00 Test Item Value Reference Range Interpretation Comments CHOLESTEROL (test code = 2210) 162 MG/DL TRIGLYCERIDES (test code = 2232) 387 MG/DL HDL CHOLESTEROL (test code = 2220) 30 MG/DL CALC LDL CHOL (test code = 2237) 80 MG/DL RISK RATIO LDL/HDL (test code = 2.67 RATIO 2238) LIPID [id number] 00:00:00 Test Item Value Reference Range Interpretation Comments CHOLESTEROL (test code = 2210) 162 MG/DL TRIGLYCERIDES (test code = 2232) 387 MG/DL HDL CHOLESTEROL (test code = 2220) 30 MG/DL CALC LDL CHOL (test code = 2237) 80 MG/DL RISK RATIO LDL/HDL (test code = 2.67 RATIO 2238) COMPREHENSIVE METABOLIC [id number] 00:00:00 Test Item Value Reference Range Interpretation Comments GLUCOSE (test code = 2217) 236 MG/DL BUN (test code = 2208) 14 MG/DL CREATININE (test code = 2214) 0.71 MG/DL eGFR AMER. (test code 122 ML/MIN/1.73 = 16408) eGFR NON- AMER. (test 105 ML/MIN/1.73 code = 78725) CALC BUN/CREAT (test code = 20 RATIO [...] code = 2219) 69 U/L COMPREHENSIVE METABOLIC [id number] 00:00:00 Test Item Value Reference Range Interpretation Comments GLUCOSE (test code = 2217) 236 MG/DL BUN (test code = 2208) 14 MG/DL CREATININE (test code = 2214) 0.71 MG/DL eGFR AMER. (test code 122 ML/MIN/1.73 = 73131) eGFR NON- AMER. (test 105 ML/MIN/1.73 code = 72566) CALC BUN/CREAT (test code = 20 RATIO [...] (test code = 2219) 69 U/L HEMOGLOBIN [id number] 00:00:00 Test Item Value Reference Range Interpretation Comments HEMOGLOBIN A1c (test code = 59673) 11.4 % HEMOGLOBIN [id number] 00:00:00 Test Item Value Reference Range Interpretation Comments HEMOGLOBIN A1c (test code = 36744) 11.4 % HEMOGLOBIN [id number] 00:00:00 Test Item Value Reference Range Interpretation Comments HEMOGLOBIN A1c (test code = 05760) 11.4 % LIPID [id number] 00:00:00 Test Item Value Reference Range Interpretation Comments CHOLESTEROL (test code = 2210) 162 MG/DL TRIGLYCERIDES (test code = 2232) 387 MG/DL HDL CHOLESTEROL (test code = 2220) 30 MG/DL CALC LDL CHOL (test code = 2237) 80 MG/DL RISK RATIO LDL/HDL (test code = 2.67 RATIO 2238) LIPID [id number] 00:00:00 Test Item Value Reference Range Interpretation Comments CHOLESTEROL (test code = 2210) 162 MG/DL TRIGLYCERIDES (test code = 2232) 387 MG/DL HDL CHOLESTEROL (test code = 2220) 30 MG/DL CALC LDL CHOL (test code = 2237) 80 MG/DL RISK RATIO LDL/HDL (test code = 2.67 RATIO 2238) COMPREHENSIVE METABOLIC [id number] 00:00:00 Test Item Value Reference Range Interpretation Comments GLUCOSE (test code = 2217) 236 MG/DL BUN (test code = 2208) 14 MG/DL CREATININE (test code = 2214) 0.71 MG/DL eGFR AMER. (test code 122 ML/MIN/1.73 = 16203) eGFR NON- AMER. (test 105 ML/MIN/1.73 code = 73071) CALC BUN/CREAT (test code = 20 RATIO [...] code = 2219) 69 U/L COMPREHENSIVE METABOLIC [id number] 00:00:00 Test Item Value Reference Range Interpretation Comments GLUCOSE (test code = 2217) 236 MG/DL BUN (test code = 2208) 14 MG/DL CREATININE (test code = 2214) 0.71 MG/DL eGFR AMER. (test code 122 ML/MIN/1.73 = 22206) eGFR NON- AMER. (test 105 ML/MIN/1.73 code = 22504) CALC BUN/CREAT (test code = 20 RATIO [...] (test code = 2219) 69 U/L HEMOGLOBIN [id number] 00:00:00 Test Item Value Reference Range Interpretation Comments HEMOGLOBIN A1c (test code = 22318) 11.4 % HEMOGLOBIN [id number] 00:00:00 Test Item Value Reference Range Interpretation Comments HEMOGLOBIN A1c (test code = 44669) 11.4 % HEMOGLOBIN [id number] 00:00:00 Test Item Value Reference Range Interpretation Comments HEMOGLOBIN A1c (test code = 28226) 11.4 % LIPID [id number] 00:00:00 Test Item Value Reference Range Interpretation Comments CHOLESTEROL (test code = 2210) 162 MG/DL TRIGLYCERIDES (test code = 2232) 387 MG/DL HDL CHOLESTEROL (test code = 2220) 30 MG/DL CALC LDL CHOL (test code = 2237) 80 MG/DL RISK RATIO LDL/HDL (test code = 2.67 RATIO 2238) LIPID [id number] 00:00:00 Test Item Value Reference Range Interpretation Comments CHOLESTEROL (test code = 2210) 162 MG/DL TRIGLYCERIDES (test code = 2232) 387 MG/DL HDL CHOLESTEROL (test code = 2220) 30 MG/DL CALC LDL CHOL (test code = 2237) 80 MG/DL RISK RATIO LDL/HDL (test code = 2.67 RATIO 2238) COMPREHENSIVE METABOLIC [id number] 00:00:00 Test Item Value Reference Range Interpretation Comments GLUCOSE (test code = 2217) 236 MG/DL BUN (test code = 2208) 14 MG/DL CREATININE (test code = 2214) 0.71 MG/DL eGFR AMER. (test code 122 ML/MIN/1.73 = 28931) eGFR NON- AMER. (test 105 ML/MIN/1.73 code = 56850) CALC BUN/CREAT (test code = 20 RATIO [...] code = 2219) 69 U/L COMPREHENSIVE METABOLIC [id number] 00:00:00 Test Item Value Reference Range Interpretation Comments GLUCOSE (test code = 2217) 236 MG/DL BUN (test code = 2208) 14 MG/DL CREATININE (test code = 2214) 0.71 MG/DL eGFR AMER. (test code 122 ML/MIN/1.73 = 04578) eGFR NON- AMER. (test 105 ML/MIN/1.73 code = 46850) CALC BUN/CREAT (test code = 20 RATIO [...] (test code = 2219) 69 U/L HEMOGLOBIN [id number] 00:00:00 Test Item Value Reference Range Interpretation Comments HEMOGLOBIN A1c (test code = 17800) 11.4 % HEMOGLOBIN [id number] 00:00:00 Test Item Value Reference Range Interpretation Comments HEMOGLOBIN A1c (test code = 94794) 11.4 % HEMOGLOBIN [id number] 00:00:00 Test Item Value Reference Range Interpretation Comments HEMOGLOBIN A1c (test code = 10057) 11.4 % LIPID [id number] 00:00:00 Test Item Value Reference Range Interpretation Comments CHOLESTEROL (test code = 2210) 162 MG/DL TRIGLYCERIDES (test code = 2232) 387 MG/DL HDL CHOLESTEROL (test code = 2220) 30 MG/DL CALC LDL CHOL (test code = 2237) 80 MG/DL RISK RATIO LDL/HDL (test code = 2.67 RATIO 2238) LIPID [id number] 00:00:00 Test Item Value Reference Range Interpretation Comments CHOLESTEROL (test code = 2210) 162 MG/DL TRIGLYCERIDES (test code = 2232) 387 MG/DL HDL CHOLESTEROL (test code = 2220) 30 MG/DL CALC LDL CHOL (test code = 2237) 80 MG/DL RISK RATIO LDL/HDL (test code = 2.67 RATIO 2238) COMPREHENSIVE METABOLIC [id number] 00:00:00 Test Item Value Reference Range Interpretation Comments GLUCOSE (test code = 2217) 236 MG/DL BUN (test code = 2208) 14 MG/DL CREATININE (test code = 2214) 0.71 MG/DL eGFR AMER. (test code 122 ML/MIN/1.73 = 93458) eGFR NON- AMER. (test 105 ML/MIN/1.73 code = 40846) CALC BUN/CREAT (test code = 20 RATIO [...] code = 2219) 69 U/L COMPREHENSIVE METABOLIC [id number] 00:00:00 Test Item Value Reference Range Interpretation Comments GLUCOSE (test code = 2217) 236 MG/DL BUN (test code = 2208) 14 MG/DL CREATININE (test code = 2214) 0.71 MG/DL eGFR AMER. (test code 122 ML/MIN/1.73 = 82946) eGFR NON- AMER. (test 105 ML/MIN/1.73 code = 61244) CALC BUN/CREAT (test code = 20 RATIO [...] (test code = 2219) 69 U/L HEMOGLOBIN [id number] 00:00:00 Test Item Value Reference Range Interpretation Comments HEMOGLOBIN A1c (test code = 61902) 11.4 % HEMOGLOBIN [id number] 00:00:00 Test Item Value Reference Range Interpretation Comments HEMOGLOBIN A1c (test code = 98001) 11.4 % HEMOGLOBIN [id number] 00:00:00 Test Item Value Reference Range Interpretation Comments HEMOGLOBIN A1c (test code = 41845) 11.4 % LIPID [id number] 00:00:00 Test Item Value Reference Range Interpretation Comments CHOLESTEROL (test code = 2210) 162 MG/DL TRIGLYCERIDES (test code = 2232) 387 MG/DL HDL CHOLESTEROL (test code = 2220) 30 MG/DL CALC LDL CHOL (test code = 2237) 80 MG/DL RISK RATIO LDL/HDL (test code = 2.67 RATIO 2238) LIPID [id number] 00:00:00 Test Item Value Reference Range Interpretation Comments CHOLESTEROL (test code = 2210) 162 MG/DL TRIGLYCERIDES (test code = 2232) 387 MG/DL HDL CHOLESTEROL (test code = 2220) 30 MG/DL CALC LDL CHOL (test code = 2237) 80 MG/DL RISK RATIO LDL/HDL (test code = 2.67 RATIO 2238) HEMOGLOBIN [id number] 00:00:00 Test Item Value Reference Range Interpretation Comments HEMOGLOBIN A1c (test code = 49424) 11.4 % COMPREHENSIVE METABOLIC [id number] 00:00:00 Test Item Value Reference Range Interpretation Comments GLUCOSE (test code = 2217) 236 MG/DL BUN (test code = 2208) 14 MG/DL CREATININE (test code = 2214) 0.71 MG/DL eGFR AMER. (test code 122 ML/MIN/1.73 = 65582) eGFR NON- AMER. (test 105 ML/MIN/1.73 code = 14440) CALC BUN/CREAT (test code = 20 RATIO [...] code = 2219) 69 U/L COMPREHENSIVE METABOLIC [id number] 00:00:00 Test Item Value Reference Range Interpretation Comments GLUCOSE (test code = 2217) 236 MG/DL BUN (test code = 2208) 14 MG/DL CREATININE (test code = 2214) 0.71 MG/DL eGFR AMER. (test code 122 ML/MIN/1.73 = 34021) eGFR NON- AMER. (test 105 ML/MIN/1.73 code = 96712) CALC BUN/CREAT (test code = 20 RATIO [...] (test code = 2219) 69 U/L HEMOGLOBIN [id number] 00:00:00 Test Item Value Reference Range Interpretation Comments HEMOGLOBIN A1c (test code = 22705) 11.4 % LIPID [id number] 00:00:00 Test Item Value Reference Range Interpretation Comments CHOLESTEROL (test code = 2210) 162 MG/DL TRIGLYCERIDES (test code = 2232) 387 MG/DL HDL CHOLESTEROL (test code = 2220) 30 MG/DL CALC LDL CHOL (test code = 2237) 80 MG/DL RISK RATIO LDL/HDL (test code = 2.67 RATIO 2238) COMPREHENSIVE METABOLIC [id number] 00:00:00 Test Item Value Reference Range Interpretation Comments GLUCOSE (test code = 2217) 236 MG/DL BUN (test code = 2208) 14 MG/DL CREATININE (test code = 2214) 0.71 MG/DL eGFR AMER. (test code 122 ML/MIN/1.73 = 79712) eGFR NON- AMER. (test 105 ML/MIN/1.73 code = 61263) CALC BUN/CREAT (test code = 20 RATIO [...] (test code = 2219) 69 U/L HEMOGLOBIN [id number] 00:00:00 Test Item Value Reference Range Interpretation Comments HEMOGLOBIN A1c (test code = 18893) 11.4 % HEMOGLOBIN [id number] 00:00:00 Test Item Value Reference Range Interpretation Comments HEMOGLOBIN A1c (test code = 76607) 11.4 % HEMOGLOBIN [id number] 00:00:00 Test Item Value Reference Range Interpretation Comments HEMOGLOBIN A1c (test code = 88463) 11.4 % LIPID [id number] 00:00:00 Test Item Value Reference Range Interpretation Comments CHOLESTEROL (test code = 2210) 162 MG/DL TRIGLYCERIDES (test code = 2232) 387 MG/DL HDL CHOLESTEROL (test code = 2220) 30 MG/DL CALC LDL CHOL (test code = 2237) 80 MG/DL RISK RATIO LDL/HDL (test code = 2.67 RATIO 2238) LIPID [id number] 00:00:00 Test Item Value Reference Range Interpretation Comments CHOLESTEROL (test code = 2210) 162 MG/DL TRIGLYCERIDES (test code = 2232) 387 MG/DL HDL CHOLESTEROL (test code = 2220) 30 MG/DL CALC LDL CHOL (test code = 2237) 80 MG/DL RISK RATIO LDL/HDL (test code = 2.67 RATIO 2238) COMPREHENSIVE METABOLIC [id number] 00:00:00 Test Item Value Reference Range Interpretation Comments GLUCOSE (test code = 2217) 236 MG/DL BUN (test code = 2208) 14 MG/DL CREATININE (test code = 2214) 0.71 MG/DL eGFR AMER. (test code 122 ML/MIN/1.73 = 99464) eGFR NON- AMER. (test 105 ML/MIN/1.73 code = 77725) CALC BUN/CREAT (test code = 20 RATIO [...] code = 2219) 69 U/L COMPREHENSIVE METABOLIC [id number] 00:00:00 Test Item Value Reference Range Interpretation Comments GLUCOSE (test code = 2217) 236 MG/DL BUN (test code = 2208) 14 MG/DL CREATININE (test code = 2214) 0.71 MG/DL eGFR AMER. (test code 122 ML/MIN/1.73 = 92936) eGFR NON- AMER. (test 105 ML/MIN/1.73 code = 52989) CALC BUN/CREAT (test code = 20 RATIO [...] (test code = 2219) 69 U/L HEMOGLOBIN [id number] 00:00:00 Test Item Value Reference Range Interpretation Comments HEMOGLOBIN A1c (test code = 57472) 11.4 % HEMOGLOBIN [id number] 00:00:00 Test Item Value Reference Range Interpretation Comments HEMOGLOBIN A1c (test code = 18702) 11.4 % HEMOGLOBIN [id number] 00:00:00 Test Item Value Reference Range Interpretation Comments HEMOGLOBIN A1c (test code = 12374) 11.4 % LIPID [id number] 00:00:00 Test Item Value Reference Range Interpretation Comments CHOLESTEROL (test code = 2210) 162 MG/DL TRIGLYCERIDES (test code = 2232) 387 MG/DL HDL CHOLESTEROL (test code = 2220) 30 MG/DL CALC LDL CHOL (test code = 2237) 80 MG/DL RISK RATIO LDL/HDL (test code = 2.67 RATIO 2238) LIPID [id number] 00:00:00 Test Item Value Reference Range Interpretation Comments CHOLESTEROL (test code = 2210) 162 MG/DL TRIGLYCERIDES (test code = 2232) 387 MG/DL HDL CHOLESTEROL (test code = 2220) 30 MG/DL CALC LDL CHOL (test code = 2237) 80 MG/DL RISK RATIO LDL/HDL (test code = 2.67 RATIO 2238) COMPREHENSIVE METABOLIC [id number] 00:00:00 Test Item Value Reference Range Interpretation Comments GLUCOSE (test code = 2217) 236 MG/DL BUN (test code = 2208) 14 MG/DL CREATININE (test code = 2214) 0.71 MG/DL eGFR AMER. (test code 122 ML/MIN/1.73 = 20382) eGFR NON- AMER. (test 105 ML/MIN/1.73 code = 55922) CALC BUN/CREAT (test code = 20 RATIO [...] code = 2219) 69 U/L COMPREHENSIVE METABOLIC [id number] 00:00:00 Test Item Value Reference Range Interpretation Comments GLUCOSE (test code = 2217) 236 MG/DL BUN (test code = 2208) 14 MG/DL CREATININE (test code = 2214) 0.71 MG/DL eGFR AMER. (test code 122 ML/MIN/1.73 = 31927) eGFR NON- AMER. (test 105 ML/MIN/1.73 code = 97007) CALC BUN/CREAT (test code = 20 RATIO [...] (test code = 2219) 69 U/L HEMOGLOBIN [id number] 00:00:00 Test Item Value Reference Range Interpretation Comments HEMOGLOBIN A1c (test code = 32298) 11.4 % HEMOGLOBIN [id number] 00:00:00 Test Item Value Reference Range Interpretation Comments HEMOGLOBIN A1c (test code = 86915) 11.4 % HEMOGLOBIN [id number] 00:00:00 Test Item Value Reference Range Interpretation Comments HEMOGLOBIN A1c (test code = 80622) 11.4 % LIPID [id number] 00:00:00 Test Item Value Reference Range Interpretation Comments CHOLESTEROL (test code = 2210) 162 MG/DL TRIGLYCERIDES (test code = 2232) 387 MG/DL HDL CHOLESTEROL (test code = 2220) 30 MG/DL CALC LDL CHOL (test code = 2237) 80 MG/DL RISK RATIO LDL/HDL (test code = 2.67 RATIO 2238) LIPID [id number] 00:00:00 Test Item Value Reference Range Interpretation Comments CHOLESTEROL (test code = 2210) 162 MG/DL TRIGLYCERIDES (test code = 2232) 387 MG/DL HDL CHOLESTEROL (test code = 2220) 30 MG/DL CALC LDL CHOL (test code = 2237) 80 MG/DL RISK RATIO LDL/HDL (test code = 2.67 RATIO 2238) COMPREHENSIVE METABOLIC [id number] 00:00:00 Test Item Value Reference Range Interpretation Comments GLUCOSE (test code = 2217) 236 MG/DL BUN (test code = 2208) 14 MG/DL CREATININE (test code = 2214) 0.71 MG/DL eGFR AMER. (test code 122 ML/MIN/1.73 = 17320) eGFR NON- AMER. (test 105 ML/MIN/1.73 code = 08903) CALC BUN/CREAT (test code = 20 RATIO [...] code = 2219) 69 U/L COMPREHENSIVE METABOLIC [id number] 00:00:00 Test Item Value Reference Range Interpretation Comments GLUCOSE (test code = 2217) 236 MG/DL BUN (test code = 2208) 14 MG/DL CREATININE (test code = 2214) 0.71 MG/DL eGFR AMER. (test code 122 ML/MIN/1.73 = 94514) eGFR NON- AMER. (test 105 ML/MIN/1.73 code = 75156) CALC BUN/CREAT (test code = 20 RATIO 2235) SODIUM (test code = 2231) 138 MEQ/L POTASSIUM (test code = 2228) 4.3 MEQ/L CHLORIDE (test code = 2215) 103 MEQ/L CARBON DIOXIDE (test code = 19 MEQ/L 2206) CALCIUM (test code = 2209) 10.0 MG/DL PROTEIN, TOTAL (test code = 7.4 G/DL 9) ALBUMIN (test code = 2201) 4.5 G/DL CALC GLOBULIN (test code = 2.9 G/DL 2240) CALC A/G RATIO (test code = 1.6 RATIO 2234) BILIRUBIN, TOTAL (test code = 0.4 MG/DL 2206) ALKALINE PHOSPHATASE (test 55 U/L code = 2204) AST (test code = 2218) 38 U/L ALT (test code = 2219) 69 U/L - CT UP EXTREM W/O CONT [id number] 08:37:[facility] 1980 Sex: F PatientName: MARGE FRANCO Unit No: [id number] EXAMS: CPT CODE: [id number] [place]TREM W/[place] [address] [place] SCAN LEFT WRIST WITH RECONSTRUCTION DIAGNOSIS: [...] with ACR practice standards and adherence to oil pipe inspector's recommendations. INDICATION: LEFT WRIST SPRAIN, POSSIBLE SCAPHOID FRACTURE COMPARISON: None. COMMENT: Findings are as described above. at 0837 Reported and signed by: America Schuler MD CC: Bebeto Quiroga MD Technologist: KAVEH WYMAN MRI CTDI: DLP: Trnscrpt: 08/11/2020 (0837) [facility] NAME: MARGE FRANCO [address] PHYS: Bebeto Valiente MD : 1980 AGE: 40 SEX: F [place], [place] [address] LOC: YSHILOH PHONE #: [phone] EXAM DATE: 08/08/2020 STATUS: DEP CLI FAX #: [phone] RAD #: D/C DT PAGE 1 Signed Report Patient Name: MARGE FRANCO Unit No: [id number] EXAMS: CPT CODE: [id number] [place] EXTREM W/[place] [address] (Continued) Orig Print D/T: S: 08/11/2020 (0840) [facility] NAME: MARGE FRANCO [address] [facility] [address] PHYS: Bebeto Crespo MD : 1980 AGE: 40 SEX: F [place], [place] [address] LOC: Y.RAD PHONE #: [phone] EXAM DATE: 08/08/2020 STATUS: DEP CLI FAX #: [phone] RAD #: D/C DT PAGE 2 Signed ReportCULTURE, [id number] 00:00:00 Test Item Value Reference Range Interpretation Comments CULTURE, URINE (test SPECIMEN NUMBER: code = 70937) [id number] CULTURE, [id number] 00:00:00 Test Item Value Reference Range Interpretation Comments CULTURE, URINE (test SPECIMEN NUMBER: code = 31106) [id number] CULTURE, [id number] 00:00:00 Test Item Value Reference Range Interpretation Comments CULTURE, URINE (test SPECIMEN NUMBER: code = 13343) [id number] CULTURE, [id number] 00:00:00 Test Item Value Reference Range Interpretation Comments CULTURE, URINE (test SPECIMEN NUMBER: code = 96221) [id number] CULTURE, [id number] 00:00:00 Test Item Value Reference Range Interpretation Comments CULTURE, URINE (test SPECIMEN NUMBER: code = 24607) [id number] CULTURE, [id number] 00:00:00 Test Item Value Reference Range Interpretation Comments CULTURE, URINE (test SPECIMEN NUMBER: code = 11716) [id number] CULTURE, [id number] 00:00:00 Test Item Value Reference Range Interpretation Comments CULTURE, URINE (test SPECIMEN NUMBER: code = 85539) [id number] CULTURE, [id number] 00:00:00 Test Item Value Reference Range Interpretation Comments CULTURE, URINE (test SPECIMEN NUMBER: code = 90310) [id number] CULTURE, [id number] 00:00:00 Test Item Value Reference Range Interpretation Comments CULTURE, URINE (test SPECIMEN NUMBER: code = 88482) [id number] CULTURE, [id number] 00:00:00 Test Item Value Reference Range Interpretation Comments CULTURE, URINE (test SPECIMEN NUMBER: code = 08435) [id number] CULTURE, [id number] 00:00:00 Test Item Value Reference Range Interpretation Comments CULTURE, URINE (test SPECIMEN NUMBER: code = 63434) [id number] CULTURE, [id number] 00:00:00 Test Item Value Reference Range Interpretation Comments CULTURE, URINE (test SPECIMEN NUMBER: code = 26032) [id number] CULTURE, [id number] 00:00:00 Test Item Value Reference Range Interpretation Comments CULTURE, URINE (test SPECIMEN NUMBER: code = 95123) [id number] CULTURE, [id number] 00:00:00 Test Item Value Reference Range Interpretation Comments CULTURE, URINE (test SPECIMEN NUMBER: code = 56660) [id number] CULTURE, [id number] 00:00:00 Test Item Value Reference Range Interpretation Comments CULTURE, URINE (test SPECIMEN NUMBER: code = 75714) [id number] CULTURE, [id number] 00:00:00 Test Item Value Reference Range Interpretation Comments CULTURE, URINE (test SPECIMEN NUMBER: code = 62187) [id number] CULTURE, [id number] 00:00:00 Test Item Value Reference Range Interpretation Comments CULTURE, URINE (test SPECIMEN NUMBER: code = 69784) [id number] CULTURE, [id number] 00:00:00 Test Item Value Reference Range Interpretation Comments CULTURE, URINE (test SPECIMEN NUMBER: code = 55637) [id number] CULTURE, [id number] 00:00:00 Test Item Value Reference Range Interpretation Comments CULTURE, URINE (test SPECIMEN NUMBER: code = 67490) [id number] CULTURE, [id number] 00:00:00 Test Item Value Reference Range Interpretation Comments CULTURE, URINE (test SPECIMEN NUMBER: code = 98802) [id number] CULTURE, [id number] 00:00:00 Test Item Value Reference Range Interpretation Comments CULTURE, URINE (test SPECIMEN NUMBER: code = 23829) [id number] VAGINAL PATHOGENS DNA [id number] 00:00:00 Test Item Value Reference Range Interpretation Comments ANDIE SPECIES (test code = 72555) NEGATIVE G. VAGINALIS (test code = 95132) NEGATIVE T. VAGINALIS (test code = 50034) NEGATIVE VAGINAL PATHOGENS DNA [id number] 00:00:00 Test Item Value Reference Range Interpretation Comments ANDIE SPECIES (test code = 75270) NEGATIVE G. VAGINALIS (test code = 28799) NEGATIVE T. VAGINALIS (test code = 28097) NEGATIVE VAGINAL PATHOGENS DNA [id number] 00:00:00 Test Item Value Reference Range Interpretation Comments ANDIE SPECIES (test code = 41247) NEGATIVE G. VAGINALIS (test code = 32341) NEGATIVE T. VAGINALIS (test code = 81283) NEGATIVE VAGINAL PATHOGENS DNA [id number] 00:00:00 Test Item Value Reference Range Interpretation Comments ANDIE SPECIES (test code = 79199) NEGATIVE G. VAGINALIS (test code = 27807) NEGATIVE T. VAGINALIS (test code = 35590) NEGATIVE VAGINAL PATHOGENS DNA [id number] 00:00:00 Test Item Value Reference Range Interpretation Comments ANDIE SPECIES (test code = 18008) NEGATIVE G. VAGINALIS (test code = 51021) NEGATIVE T. VAGINALIS (test code = 56105) NEGATIVE VAGINAL PATHOGENS DNA [id number] 00:00:00 Test Item Value Reference Range Interpretation Comments ANDIE SPECIES (test code = 08360) NEGATIVE G. VAGINALIS (test code = 28506) NEGATIVE T. VAGINALIS (test code = 12950) NEGATIVE VAGINAL PATHOGENS DNA [id number] 00:00:00 Test Item Value Reference Range Interpretation Comments ANDIE SPECIES (test code = 88812) NEGATIVE G. VAGINALIS (test code = 59654) NEGATIVE T. VAGINALIS (test code = 12492) NEGATIVE VAGINAL PATHOGENS DNA [id number] 00:00:00 Test Item Value Reference Range Interpretation Comments ANDIE SPECIES (test code = 86958) NEGATIVE G. VAGINALIS (test code = 05187) NEGATIVE T. VAGINALIS (test code = 32496) NEGATIVE VAGINAL PATHOGENS DNA [id number] 00:00:00 Test Item Value Reference Range Interpretation Comments ANDIE SPECIES (test code = 74094) NEGATIVE G. VAGINALIS (test code = 45892) NEGATIVE T. VAGINALIS (test code = 64737) NEGATIVE VAGINAL PATHOGENS DNA [id number] 00:00:00 Test Item Value Reference Range Interpretation Comments ANDIE SPECIES (test code = 98625) NEGATIVE G. VAGINALIS (test code = 84295) NEGATIVE T. VAGINALIS (test code = 00285) NEGATIVE VAGINAL PATHOGENS DNA [id number] 00:00:00 Test Item Value Reference Range Interpretation Comments ANDIE SPECIES (test code = 26758) NEGATIVE G. VAGINALIS (test code = 94792) NEGATIVE T. VAGINALIS (test code = 25865) NEGATIVE VAGINAL PATHOGENS DNA [id number] 00:00:00 Test Item Value Reference Range Interpretation Comments ANDIE SPECIES (test code = 68369) NEGATIVE G. VAGINALIS (test code = 25502) NEGATIVE T. VAGINALIS (test code = 76527) NEGATIVE VAGINAL PATHOGENS DNA [id number] 00:00:00 Test Item Value Reference Range Interpretation Comments ANDIE SPECIES (test code = ) NEGATIVE G. VAGINALIS (test code = 93549) NEGATIVE T. VAGINALIS (test code = 20051) NEGATIVE VAGINAL PATHOGENS DNA [id number] 00:00:00 Test Item Value Reference Range Interpretation Comments ANDIE SPECIES (test code = ) NEGATIVE G. VAGINALIS (test code = 26446) NEGATIVE T. VAGINALIS (test code = 93192) NEGATIVE VAGINAL PATHOGENS DNA [id number] 00:00:00 Test Item Value Reference Range Interpretation Comments ANDIE SPECIES (test code = 62872) NEGATIVE G. VAGINALIS (test code = 76911) NEGATIVE T. VAGINALIS (test code = 71843) NEGATIVE VAGINAL PATHOGENS DNA [id number] 00:00:00 Test Item Value Reference Range Interpretation Comments ANDIE SPECIES (test code = 92783) NEGATIVE G. VAGINALIS (test code = 27047) NEGATIVE T. VAGINALIS (test code = 91645) NEGATIVE VAGINAL PATHOGENS DNA [id number] 00:00:00 Test Item Value Reference Range Interpretation Comments ANDIE SPECIES (test code = 31138) NEGATIVE G. VAGINALIS (test code = 87209) NEGATIVE T. VAGINALIS (test code = 55349) NEGATIVE VAGINAL PATHOGENS DNA [id number] 00:00:00 Test Item Value Reference Range Interpretation Comments ANDIE SPECIES (test code = ) NEGATIVE G. VAGINALIS (test code = 29621) NEGATIVE T. VAGINALIS (test code = 98555) NEGATIVE VAGINAL PATHOGENS DNA [id number] 00:00:00 Test Item Value Reference Range Interpretation Comments ANDIE SPECIES (test code = ) NEGATIVE G. VAGINALIS (test code = 38741) NEGATIVE T. VAGINALIS (test code = 30501) NEGATIVE VAGINAL PATHOGENS DNA [id number] 00:00:00 Test Item Value Reference Range Interpretation Comments ANDIE SPECIES (test code = ) NEGATIVE G. VAGINALIS (test code = 70738) NEGATIVE T. VAGINALIS (test code = 82492) NEGATIVE VAGINAL PATHOGENS DNA [id number] 00:00:00 Test Item Value Reference Range Interpretation Comments ANDIE SPECIES (test code = ) NEGATIVE G. VAGINALIS (test code = 55625) NEGATIVE T. VAGINALIS (test code = 96533) NEGATIVE - XR FOREARM 2 VIEWS [id number] 09:10:00 [facility] 1980 Sex: F PatientName: MARGE FRANCO Unit No: [id number] EXAMS: CPT CODE: [id number] XR FORE[place] [address] [place] [address] Leftforearm and wrist 4 views COMMENT: There is no evidence for fracture or subluxation. No focal bony lesions are seen. at 0910 Reported and signed by: Prasad Marina MD CC: Rafy Ferguson MD Technologist: Marie Johnson(R) Transcribed D/ (0910) NoelJCL [facility] NAME: MARGE FRANCO [address] [facility] PHYS: Rayf Marino [place] : 1980 AGE: 40 SEX: F [id number] LOC: TEOFILO PHONE #: [phone] EXAM DATE: 08/02/2020 STATUS: DEP ER FAX #: [phone] RAD #: D/C DT PAGE 1 Signed Report Patient Name: MARGE FRANCO Unit No: [id number] EXAMS: CPT CODE: [id number] XR FOREARM [address] [place] [address] (Continued) Orig Print D/T: S: 08/04/2020 (0914) [facility] NAME: MARGE FRANCO [address] PHYS: Rafy Marino [place] : 1980 AGE: 40 SEX: F [place], [place] [address] LOC: TEOFILO PHONE #: [phone] EXAM DATE: 08/02/2020 STATUS: [facility] ER FAX #: [phone] RAD #: D/C DT PAGE 2 Signed ReportCULTURE, [id number] 00:00:00 Test Item Value Reference Range Interpretation Comments CULTURE, URINE (test SPECIMEN NUMBER: code = 92793) [id number] CULTURE, [id number] 00:00:00 Test Item Value Reference Range Interpretation Comments CULTURE, URINE (test SPECIMEN NUMBER: code = 77361) [id number] CULTURE, [id number] 00:00:00 Test Item Value Reference Range Interpretation Comments CULTURE, URINE (test SPECIMEN NUMBER: code = 09428) [id number] CULTURE, [id number] 00:00:00 Test Item Value Reference Range Interpretation Comments CULTURE, URINE (test SPECIMEN NUMBER: code = 88727) [id number] CULTURE, [id number] 00:00:00 Test Item Value Reference Range Interpretation Comments CULTURE, URINE (test SPECIMEN NUMBER: code = 84127) [id number] CULTURE, [id number] 00:00:00 Test Item Value Reference Range Interpretation Comments CULTURE, URINE (test SPECIMEN NUMBER: code = 35797) [id number] CULTURE, [id number] 00:00:00 Test Item Value Reference Range Interpretation Comments CULTURE, URINE (test SPECIMEN NUMBER: code = 20418) [id number] CULTURE, [id number] 00:00:00 Test Item Value Reference Range Interpretation Comments CULTURE, URINE (test SPECIMEN NUMBER: code = 02402) [id number] CULTURE, [id number] 00:00:00 Test Item Value Reference Range Interpretation Comments CULTURE, URINE (test SPECIMEN NUMBER: code = 28349) [id number] CULTURE, [id number] 00:00:00 Test Item Value Reference Range Interpretation Comments CULTURE, URINE (test SPECIMEN NUMBER: code = 33024) [id number] CULTURE, [id number] 00:00:00 Test Item Value Reference Range Interpretation Comments CULTURE, URINE (test SPECIMEN NUMBER: code = 00017) [id number] CULTURE, [id number] 00:00:00 Test Item Value Reference Range Interpretation Comments CULTURE, URINE (test SPECIMEN NUMBER: code = 00914) [id number] CULTURE, [id number] 00:00:00 Test Item Value Reference Range Interpretation Comments CULTURE, URINE (test SPECIMEN NUMBER: code = 13864) [id number] CULTURE, [id number] 00:00:00 Test Item Value Reference Range Interpretation Comments CULTURE, URINE (test SPECIMEN NUMBER: code = 85684) [id number] CULTURE, [id number] 00:00:00 Test Item Value Reference Range Interpretation Comments CULTURE, URINE (test SPECIMEN NUMBER: code = 06884) [id number] CULTURE, [id number] 00:00:00 Test Item Value Reference Range Interpretation Comments CULTURE, URINE (test SPECIMEN NUMBER: code = 89255) [id number] CULTURE, [id number] 00:00:00 Test Item Value Reference Range Interpretation Comments CULTURE, URINE (test SPECIMEN NUMBER: code = 84213) [id number] CULTURE, [id number] 00:00:00 Test Item Value Reference Range Interpretation Comments CULTURE, URINE (test SPECIMEN NUMBER: code = 36624) [id number] CULTURE, [id number] 00:00:00 Test Item Value Reference Range Interpretation Comments CULTURE, URINE (test SPECIMEN NUMBER: code = 71987) [id number] CULTURE, [id number] 00:00:00 Test Item Value Reference Range Interpretation Comments CULTURE, URINE (test SPECIMEN NUMBER: code = 99213) [id number] CULTURE, [id number] 00:00:00 Test Item Value Reference Range Interpretation Comments CULTURE, URINE (test SPECIMEN NUMBER: code = 91016) [id number] SARS-CoV-2 (COVID-19) by RT-PCR (HIGH RISK)2020-04-23 00:00:00 Test Item Value Reference Range Interpretation Comments SARS-CoV-2 INTERPRETATION Negative (test code = 22938) SOURCE (test code = 83466) Nasal_Swab_in_VTM__ UTM SARS-CoV-2 (COVID-19) by RT-PCR (HIGH RISK)2020-04-23 00:00:00 Test Item Value Reference Range Interpretation Comments SARS-CoV-2 INTERPRETATION Negative (test code = 75864) SOURCE (test code = 17615) Nasal_Swab_in_VTM__ UTM SARS-CoV-2 (COVID-19) by RT-PCR (HIGH RISK)2020-04-23 00:00:00 Test Item Value Reference Range Interpretation Comments SARS-CoV-2 INTERPRETATION Negative (test code = 74322) SOURCE (test code = 04618) Nasal_Swab_in_VTM__ UTM SARS-CoV-2 (COVID-19) by RT-PCR (HIGH RISK)2020-04-23 00:00:00 Test Item Value Reference Range Interpretation Comments SARS-CoV-2 INTERPRETATION Negative (test code = 30387) SOURCE (test code = 59293) Nasal_Swab_in_VTM__ UTM SARS-CoV-2 (COVID-19) by RT-PCR (HIGH RISK)2020-04-23 00:00:00 Test Item Value Reference Range Interpretation Comments SARS-CoV-2 INTERPRETATION Negative (test code = 57475) SOURCE (test code = 53190) Nasal_Swab_in_VTM__ UTM SARS-CoV-2 (COVID-19) by RT-PCR (HIGH RISK)2020-04-23 00:00:00 Test Item Value Reference Range Interpretation Comments SARS-CoV-2 INTERPRETATION Negative (test code = 30546) SOURCE (test code = 02506) Nasal_Swab_in_VTM__ UTM SARS-CoV-2 (COVID-19) by RT-PCR (HIGH RISK)2020-04-23 00:00:00 Test Item Value Reference Range Interpretation Comments SARS-CoV-2 INTERPRETATION Negative (test code = 26361) SOURCE (test code = 18663) Nasal_Swab_in_VTM__ UTM SARS-CoV-2 (COVID-19) by RT-PCR (HIGH RISK)2020-04-23 00:00:00 Test Item Value Reference Range Interpretation Comments SARS-CoV-2 INTERPRETATION Negative (test code = 44725) SOURCE (test code = 18746) Nasal_Swab_in_VTM__ UTM SARS-CoV-2 (COVID-19) by RT-PCR (HIGH RISK)2020-04-23 00:00:00 Test Item Value Reference Range Interpretation Comments SARS-CoV-2 INTERPRETATION Negative (test code = 30921) SOURCE (test code = 87900) Nasal_Swab_in_VTM__ UTM SARS-CoV-2 (COVID-19) by RT-PCR (HIGH RISK)2020-04-23 00:00:00 Test Item Value Reference Range Interpretation Comments SARS-CoV-2 INTERPRETATION Negative (test code = 25718) SOURCE (test code = 67551) Nasal_Swab_in_VTM__ UTM SARS-CoV-2 (COVID-19) by RT-PCR (HIGH RISK)2020-04-23 00:00:00 Test Item Value Reference Range Interpretation Comments SARS-CoV-2 INTERPRETATION Negative (test code = 29938) SOURCE (test code = 80342) Nasal_Swab_in_VTM__ UTM COMPREHENSIVE METABOLIC [id number] 00:00:00 Test Item Value Reference Range Interpretation Comments GLUCOSE (test code = 2217) 217 MG/DL BUN (test code = 2208) 13 MG/DL CREATININE (test code = 2214) 0.64 MG/DL eGFR AMER. (test code 128 ML/MIN/1.73 = 75957) eGFR NON- AMER. (test 110 ML/MIN/1.73 code = 33531) CALC BUN/CREAT (test code = 20 RATIO [...] (test code = 2219) 47 U/L CULTURE, [id number] 00:00:00 Test Item Value Reference Range Interpretation Comments CULTURE, URINE (test SPECIMEN NUMBER: code = 39890) [id number] COMPREHENSIVE METABOLIC [id number] 00:00:00 Test Item Value Reference Range Interpretation Comments GLUCOSE (test code = 2217) 217 MG/DL BUN (test code = 2208) 13 MG/DL CREATININE (test code = 2214) 0.64 MG/DL eGFR AMER. (test code 128 ML/MIN/1.73 = 51933) eGFR NON- AMER. (test 110 ML/MIN/1.73 code = 12628) CALC BUN/CREAT (test code = 20 RATIO [...] (test code = 2219) 47 U/L CULTURE, [id number] 00:00:00 Test Item Value Reference Range Interpretation Comments CULTURE, URINE (test SPECIMEN NUMBER: code = 12654) [id number] LIPID [id number] 00:00:00 Test Item Value Reference Range Interpretation Comments CHOLESTEROL (test code = 2210) 220 MG/DL TRIGLYCERIDES (test code = 2232) 873 MG/DL HDL CHOLESTEROL (test code = 30 MG/DL 2220) CALC LDL CHOL (test code = 2237) (NOTE) MG/DL RISK RATIO LDL/HDL (test code = (NOTE) RATIO 2238) LIPID [id number] 00:00:00 Test Item Value Reference Range Interpretation Comments CHOLESTEROL (test code = 2210) 220 MG/DL TRIGLYCERIDES (test code = 2232) 873 MG/DL HDL CHOLESTEROL (test code = 30 MG/DL 2220) CALC LDL CHOL (test code = 2237) (NOTE) MG/DL RISK RATIO LDL/HDL (test code = (NOTE) RATIO 2238) HEMOGLOBIN [id number] 00:00:00 Test Item Value Reference Range Interpretation Comments HEMOGLOBIN A1c (test code = 70101) 10.9 % HEMOGLOBIN [id number] 00:00:00 Test Item Value Reference Range Interpretation Comments HEMOGLOBIN A1c (test code = 83101) 10.9 % HEMOGLOBIN [id number] 00:00:00 Test Item Value Reference Range Interpretation Comments HEMOGLOBIN A1c (test code = 06874) 10.9 % COMPREHENSIVE METABOLIC [id number] 00:00:00 Test Item Value Reference Range Interpretation Comments GLUCOSE (test code = 2217) 217 MG/DL BUN (test code = 2208) 13 MG/DL CREATININE (test code = 2214) 0.64 MG/DL eGFR AMER. (test code 128 ML/MIN/1.73 = 31339) eGFR NON- AMER. (test 110 ML/MIN/1.73 code = 24167) CALC BUN/CREAT (test code = 20 RATIO [...] code = 2219) 47 U/L COMPREHENSIVE METABOLIC [id number] 00:00:00 Test Item Value Reference Range Interpretation Comments GLUCOSE (test code = 2217) 217 MG/DL BUN (test code = 2208) 13 MG/DL CREATININE (test code = 2214) 0.64 MG/DL eGFR AMER. (test code 128 ML/MIN/1.73 = 57245) eGFR NON- AMER. (test 110 ML/MIN/1.73 code = 20496) CALC BUN/CREAT (test code = 20 RATIO 2235) SODIUM (test code = 2231) 137 MEQ/L POTASSIUM (test code = 2228) 4.1 MEQ/L CHLORIDE (test code = 2215) 100 MEQ/L CARBON DIOXIDE (test code = 21 MEQ/L 2206) CALCIUM (test code = 2209) 10.0 MG/DL PROTEIN, TOTAL (test code = 7.7 G/DL 2229) ALBUMIN (test code = 2201) 4.6 G/DL CALC GLOBULIN (test code = 3.1 G/DL 2240) CALC A/G RATIO (test code = 1.5 RATIO 2234) BILIRUBIN, TOTAL (test code = 0.4 MG/DL 2207) ALKALINE PHOSPHATASE (test 63 U/L code = 2204) AST (test code = 2218) 36 U/L ALT (test code = 2219) 47 U/L CULTURE, [id number] 00:00:00 Test Item Value Reference Range Interpretation Comments CULTURE, URINE (test SPECIMEN NUMBER: code = 56397) [id number] CULTURE, [id number] 00:00:00 Test Item Value Reference Range Interpretation Comments CULTURE, URINE (test SPECIMEN NUMBER: code = 72033) [id number] LIPID [id number] 00:00:00 Test Item Value Reference Range Interpretation Comments CHOLESTEROL (test code = 2210) 220 MG/DL TRIGLYCERIDES (test code = 2232) 873 MG/DL HDL CHOLESTEROL (test code = 30 MG/DL 2220) CALC LDL CHOL (test code = 2237) (NOTE) MG/DL RISK RATIO LDL/HDL (test code = (NOTE) RATIO 2238) LIPID [id number] 00:00:00 Test Item Value Reference Range Interpretation Comments CHOLESTEROL (test code = 2210) 220 MG/DL TRIGLYCERIDES (test code = 2232) 873 MG/DL HDL CHOLESTEROL (test code = 30 MG/DL 2220) CALC LDL CHOL (test code = 2237) (NOTE) MG/DL RISK RATIO LDL/HDL (test code = (NOTE) RATIO 2238) HEMOGLOBIN [id number] 00:00:00 Test Item Value Reference Range Interpretation Comments HEMOGLOBIN A1c (test code = 08858) 10.9 % HEMOGLOBIN [id number] 00:00:00 Test Item Value Reference Range Interpretation Comments HEMOGLOBIN A1c (test code = 78193) 10.9 % HEMOGLOBIN [id number] 00:00:00 Test Item Value Reference Range Interpretation Comments HEMOGLOBIN A1c (test code = 92267) 10.9 % CULTURE, [id number] 00:00:00 Test Item Value Reference Range Interpretation Comments CULTURE, URINE (test SPECIMEN NUMBER: code = 73339) [id number] CULTURE, [id number] 00:00:00 Test Item Value Reference Range Interpretation Comments CULTURE, URINE (test SPECIMEN NUMBER: code = 87953) [id number] COMPREHENSIVE METABOLIC [id number] 00:00:00 Test Item Value Reference Range Interpretation Comments GLUCOSE (test code = 2217) 217 MG/DL BUN (test code = 2208) 13 MG/DL CREATININE (test code = 2214) 0.64 MG/DL eGFR AMER. (test code 128 ML/MIN/1.73 = 52516) eGFR NON- AMER. (test 110 ML/MIN/1.73 code = 35334) CALC BUN/CREAT (test code = 20 RATIO [...] code = 2219) 47 U/L COMPREHENSIVE METABOLIC [id number] 00:00:00 Test Item Value Reference Range Interpretation Comments GLUCOSE (test code = 2217) 217 MG/DL BUN (test code = 2208) 13 MG/DL CREATININE (test code = 2214) 0.64 MG/DL eGFR AMER. (test code 128 ML/MIN/1.73 = 47629) eGFR NON- AMER. (test 110 ML/MIN/1.73 code = 53039) CALC BUN/CREAT (test code = 20 RATIO [...] (test code = 2219) 47 U/L LIPID [id number] 00:00:00 Test Item Value Reference Range Interpretation Comments CHOLESTEROL (test code = 2210) 220 MG/DL TRIGLYCERIDES (test code = 2232) 873 MG/DL HDL CHOLESTEROL (test code = 30 MG/DL 2220) CALC LDL CHOL (test code = 2237) (NOTE) MG/DL RISK RATIO LDL/HDL (test code = (NOTE) RATIO 2238) LIPID [id number] 00:00:00 Test Item Value Reference Range Interpretation Comments CHOLESTEROL (test code = 2210) 220 MG/DL TRIGLYCERIDES (test code = 2232) 873 MG/DL HDL CHOLESTEROL (test code = 30 MG/DL 2220) CALC LDL CHOL (test code = 2237) (NOTE) MG/DL RISK RATIO LDL/HDL (test code = (NOTE) RATIO 2238) HEMOGLOBIN [id number] 00:00:00 Test Item Value Reference Range Interpretation Comments HEMOGLOBIN A1c (test code = 64566) 10.9 % HEMOGLOBIN [id number] 00:00:00 Test Item Value Reference Range Interpretation Comments HEMOGLOBIN A1c (test code = 74793) 10.9 % HEMOGLOBIN [id number] 00:00:00 Test Item Value Reference Range Interpretation Comments HEMOGLOBIN A1c (test code = 29003) 10.9 % CULTURE, [id number] 00:00:00 Test Item Value Reference Range Interpretation Comments CULTURE, URINE (test SPECIMEN NUMBER: code = 36456) [id number] COMPREHENSIVE METABOLIC [id number] 00:00:00 Test Item Value Reference Range Interpretation Comments GLUCOSE (test code = 2217) 217 MG/DL BUN (test code = 2208) 13 MG/DL CREATININE (test code = 2214) 0.64 MG/DL eGFR AMER. (test code 128 ML/MIN/1.73 = 47913) eGFR NON- AMER. (test 110 ML/MIN/1.73 code = 83182) CALC BUN/CREAT (test code = 20 RATIO [...] code = 2219) 47 U/L COMPREHENSIVE METABOLIC [id number] 00:00:00 Test Item Value Reference Range Interpretation Comments GLUCOSE (test code = 2217) 217 MG/DL BUN (test code = 2208) 13 MG/DL CREATININE (test code = 2214) 0.64 MG/DL eGFR AMER. (test code 128 ML/MIN/1.73 = 72676) eGFR NON- AMER. (test 110 ML/MIN/1.73 code = 17542) CALC BUN/CREAT (test code = 20 RATIO [...] (test code = 2219) 47 U/L CULTURE, [id number] 00:00:00 Test Item Value Reference Range Interpretation Comments CULTURE, URINE (test SPECIMEN NUMBER: code = 28488) [id number] LIPID [id number] 00:00:00 Test Item Value Reference Range Interpretation Comments CHOLESTEROL (test code = 2210) 220 MG/DL TRIGLYCERIDES (test code = 2232) 873 MG/DL HDL CHOLESTEROL (test code = 30 MG/DL 2220) CALC LDL CHOL (test code = 2237) (NOTE) MG/DL RISK RATIO LDL/HDL (test code = (NOTE) RATIO 2238) LIPID [id number] 00:00:00 Test Item Value Reference Range Interpretation Comments CHOLESTEROL (test code = 2210) 220 MG/DL TRIGLYCERIDES (test code = 2232) 873 MG/DL HDL CHOLESTEROL (test code = 30 MG/DL 0) CALC LDL CHOL (test code = 2237) (NOTE) MG/DL RISK RATIO LDL/HDL (test code = (NOTE) RATIO 2238) HEMOGLOBIN [id number] 00:00:00 Test Item Value Reference Range Interpretation Comments HEMOGLOBIN A1c (test code = 37139) 10.9 % HEMOGLOBIN [id number] 00:00:00 Test Item Value Reference Range Interpretation Comments HEMOGLOBIN A1c (test code = 97123) 10.9 % HEMOGLOBIN [id number] 00:00:00 Test Item Value Reference Range Interpretation Comments HEMOGLOBIN A1c (test code = 00361) 10.9 % COMPREHENSIVE METABOLIC [id number] 00:00:00 Test Item Value Reference Range Interpretation Comments GLUCOSE (test code = 2217) 217 MG/DL BUN (test code = 2208) 13 MG/DL CREATININE (test code = 2214) 0.64 MG/DL eGFR AMER. (test code 128 ML/MIN/1.73 = 97531) eGFR NON- AMER. (test 110 ML/MIN/1.73 code = 89435) CALC BUN/CREAT (test code = 20 RATIO [...] (test code = 2219) 47 U/L CULTURE, [id number] 00:00:00 Test Item Value Reference Range Interpretation Comments CULTURE, URINE (test SPECIMEN NUMBER: code = 35849) [id number] CULTURE, [id number] 00:00:00 Test Item Value Reference Range Interpretation Comments CULTURE, URINE (test SPECIMEN NUMBER: code = 47156) [id number] COMPREHENSIVE METABOLIC [id number] 00:00:00 Test Item Value Reference Range Interpretation Comments GLUCOSE (test code = 2217) 217 MG/DL BUN (test code = 2208) 13 MG/DL CREATININE (test code = 2214) 0.64 MG/DL eGFR AMER. (test code 128 ML/MIN/1.73 = 52627) eGFR NON- AMER. (test 110 ML/MIN/1.73 code = 17251) CALC BUN/CREAT (test code = 20 RATIO [...] (test code = 2219) 47 U/L LIPID [id number] 00:00:00 Test Item Value Reference Range Interpretation Comments CHOLESTEROL (test code = 2210) 220 MG/DL TRIGLYCERIDES (test code = 2232) 873 MG/DL HDL CHOLESTEROL (test code = 30 MG/DL 2220) CALC LDL CHOL (test code = 2237) (NOTE) MG/DL RISK RATIO LDL/HDL (test code = (NOTE) RATIO 2238) LIPID [id number] 00:00:00 Test Item Value Reference Range Interpretation Comments CHOLESTEROL (test code = 2210) 220 MG/DL TRIGLYCERIDES (test code = 2232) 873 MG/DL HDL CHOLESTEROL (test code = 30 MG/DL 2220) CALC LDL CHOL (test code = 2237) (NOTE) MG/DL RISK RATIO LDL/HDL (test code = (NOTE) RATIO 2238) HEMOGLOBIN [id number] 00:00:00 Test Item Value Reference Range Interpretation Comments HEMOGLOBIN A1c (test code = 06828) 10.9 % HEMOGLOBIN [id number] 00:00:00 Test Item Value Reference Range Interpretation Comments HEMOGLOBIN A1c (test code = 29609) 10.9 % HEMOGLOBIN [id number] 00:00:00 Test Item Value Reference Range Interpretation Comments HEMOGLOBIN A1c (test code = 64938) 10.9 % COMPREHENSIVE METABOLIC [id number] 00:00:00 Test Item Value Reference Range Interpretation Comments GLUCOSE (test code = 2217) 217 MG/DL BUN (test code = 2208) 13 MG/DL CREATININE (test code = 2214) 0.64 MG/DL eGFR AMER. (test code 128 ML/MIN/1.73 = 46960) eGFR NON- AMER. (test 110 ML/MIN/1.73 code = 15782) CALC BUN/CREAT (test code = 20 RATIO [...] (test code = 2219) 47 U/L CULTURE, [id number] 00:00:00 Test Item Value Reference Range Interpretation Comments CULTURE, URINE (test SPECIMEN NUMBER: code = 26654) [id number] CULTURE, [id number] 00:00:00 Test Item Value Reference Range Interpretation Comments CULTURE, URINE (test SPECIMEN NUMBER: code = 82571) [id number] COMPREHENSIVE METABOLIC [id number] 00:00:00 Test Item Value Reference Range Interpretation Comments GLUCOSE (test code = 2217) 217 MG/DL BUN (test code = 2208) 13 MG/DL CREATININE (test code = 2214) 0.64 MG/DL eGFR AMER. (test code 128 ML/MIN/1.73 = 28144) eGFR NON- AMER. (test 110 ML/MIN/1.73 code = 55142) CALC BUN/CREAT (test code = 20 RATIO [...] (test code = 2219) 47 U/L LIPID [id number] 00:00:00 Test Item Value Reference Range Interpretation Comments CHOLESTEROL (test code = 2210) 220 MG/DL TRIGLYCERIDES (test code = 2232) 873 MG/DL HDL CHOLESTEROL (test code = 30 MG/DL 2220) CALC LDL CHOL (test code = 2237) (NOTE) MG/DL RISK RATIO LDL/HDL (test code = (NOTE) RATIO 2238) LIPID [id number] 00:00:00 Test Item Value Reference Range Interpretation Comments CHOLESTEROL (test code = 2210) 220 MG/DL TRIGLYCERIDES (test code = 2232) 873 MG/DL HDL CHOLESTEROL (test code = 30 MG/DL 2220) CALC LDL CHOL (test code = 2237) (NOTE) MG/DL RISK RATIO LDL/HDL (test code = (NOTE) RATIO 2238) HEMOGLOBIN [id number] 00:00:00 Test Item Value Reference Range Interpretation Comments HEMOGLOBIN A1c (test code = 56118) 10.9 % HEMOGLOBIN [id number] 00:00:00 Test Item Value Reference Range Interpretation Comments HEMOGLOBIN A1c (test code = 44312) 10.9 % HEMOGLOBIN [id number] 00:00:00 Test Item Value Reference Range Interpretation Comments HEMOGLOBIN A1c (test code = 71529) 10.9 % COMPREHENSIVE METABOLIC [id number] 00:00:00 Test Item Value Reference Range Interpretation Comments GLUCOSE (test code = 2217) 217 MG/DL BUN (test code = 2208) 13 MG/DL CREATININE (test code = 2214) 0.64 MG/DL eGFR AMER. (test code 128 ML/MIN/1.73 = 54507) eGFR NON- AMER. (test 110 ML/MIN/1.73 code = 04320) CALC BUN/CREAT (test code = 20 RATIO [...] code = 2219) 47 U/L COMPREHENSIVE METABOLIC [id number] 00:00:00 Test Item Value Reference Range Interpretation Comments GLUCOSE (test code = 2217) 217 MG/DL BUN (test code = 2208) 13 MG/DL CREATININE (test code = 2214) 0.64 MG/DL eGFR AMER. (test code 128 ML/MIN/1.73 = 08210) eGFR NON- AMER. (test 110 ML/MIN/1.73 code = 83279) CALC BUN/CREAT (test code = 20 RATIO [...] (test code = 2219) 47 U/L CULTURE, [id number] 00:00:00 Test Item Value Reference Range Interpretation Comments CULTURE, URINE (test SPECIMEN NUMBER: code = 42873) [id number] COMPREHENSIVE METABOLIC [id number] 00:00:00 Test Item Value Reference Range Interpretation Comments GLUCOSE (test code = 2217) 217 MG/DL BUN (test code = 2208) 13 MG/DL CREATININE (test code = 2214) 0.64 MG/DL eGFR AMER. (test code 128 ML/MIN/1.73 = 86575) eGFR NON- AMER. (test 110 ML/MIN/1.73 code = 58126) CALC BUN/CREAT (test code = 20 RATIO [...] (test code = 2219) 47 U/L CULTURE, [id number] 00:00:00 Test Item Value Reference Range Interpretation Comments CULTURE, URINE (test SPECIMEN NUMBER: code = 62146) [id number] LIPID [id number] 00:00:00 Test Item Value Reference Range Interpretation Comments CHOLESTEROL (test code = 2210) 220 MG/DL TRIGLYCERIDES (test code = 2232) 873 MG/DL HDL CHOLESTEROL (test code = 30 MG/DL 2220) CALC LDL CHOL (test code = 2237) (NOTE) MG/DL RISK RATIO LDL/HDL (test code = (NOTE) RATIO 2238) LIPID [id number] 00:00:00 Test Item Value Reference Range Interpretation Comments CHOLESTEROL (test code = 2210) 220 MG/DL TRIGLYCERIDES (test code = 2232) 873 MG/DL HDL CHOLESTEROL (test code = 30 MG/DL 2220) CALC LDL CHOL (test code = 2237) (NOTE) MG/DL RISK RATIO LDL/HDL (test code = (NOTE) RATIO 2238) HEMOGLOBIN [id number] 00:00:00 Test Item Value Reference Range Interpretation Comments HEMOGLOBIN A1c (test code = 79649) 10.9 % HEMOGLOBIN [id number] 00:00:00 Test Item Value Reference Range Interpretation Comments HEMOGLOBIN A1c (test code = 25781) 10.9 % HEMOGLOBIN [id number] 00:00:00 Test Item Value Reference Range Interpretation Comments HEMOGLOBIN A1c (test code = 85084) 10.9 % CULTURE, [id number] 00:00:00 Test Item Value Reference Range Interpretation Comments CULTURE, URINE (test SPECIMEN NUMBER: code = 46718) [id number] LIPID [id number] 00:00:00 Test Item Value Reference Range Interpretation Comments CHOLESTEROL (test code = 2210) 220 MG/DL TRIGLYCERIDES (test code = 2232) 873 MG/DL HDL CHOLESTEROL (test code = 30 MG/DL 2220) CALC LDL CHOL (test code = 2237) (NOTE) MG/DL RISK RATIO LDL/HDL (test code = (NOTE) RATIO 2238) HEMOGLOBIN [id number] 00:00:00 Test Item Value Reference Range Interpretation Comments HEMOGLOBIN A1c (test code = 12349) 10.9 % HEMOGLOBIN [id number] 00:00:00 Test Item Value Reference Range Interpretation Comments HEMOGLOBIN A1c (test code = 27242) 10.9 % CULTURE, [id number] 00:00:00 Test Item Value Reference Range Interpretation Comments CULTURE, URINE (test SPECIMEN NUMBER: code = 63952) [id number] COMPREHENSIVE METABOLIC [id number] 00:00:00 Test Item Value Reference Range Interpretation Comments GLUCOSE (test code = 2217) 217 MG/DL BUN (test code = 2208) 13 MG/DL CREATININE (test code = 2214) 0.64 MG/DL eGFR AMER. (test code 128 ML/MIN/1.73 = 65501) eGFR NON- AMER. (test 110 ML/MIN/1.73 code = 52514) CALC BUN/CREAT (test code = 20 RATIO [...] (test code = 2219) 47 U/L CULTURE, [id number] 00:00:00 Test Item Value Reference Range Interpretation Comments CULTURE, URINE (test SPECIMEN NUMBER: code = 21610) [id number] COMPREHENSIVE METABOLIC [id number] 00:00:00 Test Item Value Reference Range Interpretation Comments GLUCOSE (test code = 2217) 217 MG/DL BUN (test code = 2208) 13 MG/DL CREATININE (test code = 2214) 0.64 MG/DL eGFR AMER. (test code 128 ML/MIN/1.73 = 77747) eGFR NON- AMER. (test 110 ML/MIN/1.73 code = 08522) CALC BUN/CREAT (test code = 20 RATIO [...] (test code = 2219) 47 U/L LIPID [id number] 00:00:00 Test Item Value Reference Range Interpretation Comments CHOLESTEROL (test code = 2210) 220 MG/DL TRIGLYCERIDES (test code = 2232) 873 MG/DL HDL CHOLESTEROL (test code = 30 MG/DL 2220) CALC LDL CHOL (test code = 2237) (NOTE) MG/DL RISK RATIO LDL/HDL (test code = (NOTE) RATIO 2238) LIPID [id number] 00:00:00 Test Item Value Reference Range Interpretation Comments CHOLESTEROL (test code = 2210) 220 MG/DL TRIGLYCERIDES (test code = 2232) 873 MG/DL HDL CHOLESTEROL (test code = 30 MG/DL 2220) CALC LDL CHOL (test code = 2237) (NOTE) MG/DL RISK RATIO LDL/HDL (test code = (NOTE) RATIO 2238) HEMOGLOBIN [id number] 00:00:00 Test Item Value Reference Range Interpretation Comments HEMOGLOBIN A1c (test code = 38743) 10.9 % HEMOGLOBIN [id number] 00:00:00 Test Item Value Reference Range Interpretation Comments HEMOGLOBIN A1c (test code = 94636) 10.9 % HEMOGLOBIN [id number] 00:00:00 Test Item Value Reference Range Interpretation Comments HEMOGLOBIN A1c (test code = 50711) 10.9 % CULTURE, [id number] 00:00:00 Test Item Value Reference Range Interpretation Comments CULTURE, URINE (test SPECIMEN NUMBER: code = 15686) [id number] COMPREHENSIVE METABOLIC [id number] 00:00:00 Test Item Value Reference Range Interpretation Comments GLUCOSE (test code = 2217) 217 MG/DL BUN (test code = 2208) 13 MG/DL CREATININE (test code = 2214) 0.64 MG/DL eGFR AMER. (test code 128 ML/MIN/1.73 = 96703) eGFR NON- AMER. (test 110 ML/MIN/1.73 code = 07789) CALC BUN/CREAT (test code = 20 RATIO [...] (test code = 2219) 47 U/L CULTURE, [id number] 00:00:00 Test Item Value Reference Range Interpretation Comments CULTURE, URINE (test SPECIMEN NUMBER: code = 19625) [id number] COMPREHENSIVE METABOLIC [id number] 00:00:00 Test Item Value Reference Range Interpretation Comments GLUCOSE (test code = 2217) 217 MG/DL BUN (test code = 2208) 13 MG/DL CREATININE (test code = 2214) 0.64 MG/DL eGFR AMER. (test code 128 ML/MIN/1.73 = 44176) eGFR NON- AMER. (test 110 ML/MIN/1.73 code = 74188) CALC BUN/CREAT (test code = 20 RATIO [...] (test code = 2219) 47 U/L LIPID [id number] 00:00:00 Test Item Value Reference Range Interpretation Comments CHOLESTEROL (test code = 2210) 220 MG/DL TRIGLYCERIDES (test code = 2232) 873 MG/DL HDL CHOLESTEROL (test code = 30 MG/DL 2220) CALC LDL CHOL (test code = 2237) (NOTE) MG/DL RISK RATIO LDL/HDL (test code = (NOTE) RATIO 2238) LIPID [id number] 00:00:00 Test Item Value Reference Range Interpretation Comments CHOLESTEROL (test code = 2210) 220 MG/DL TRIGLYCERIDES (test code = 2232) 873 MG/DL HDL CHOLESTEROL (test code = 30 MG/DL 2220) CALC LDL CHOL (test code = 2237) (NOTE) MG/DL RISK RATIO LDL/HDL (test code = (NOTE) RATIO 2238) HEMOGLOBIN [id number] 00:00:00 Test Item Value Reference Range Interpretation Comments HEMOGLOBIN A1c (test code = 87319) 10.9 % HEMOGLOBIN [id number] 00:00:00 Test Item Value Reference Range Interpretation Comments HEMOGLOBIN A1c (test code = 89421) 10.9 % HEMOGLOBIN [id number] 00:00:00 Test Item Value Reference Range Interpretation Comments HEMOGLOBIN A1c (test code = 55881) 10.9 % COMPREHENSIVE METABOLIC [id number] 00:00:00 Test Item Value Reference Range Interpretation Comments GLUCOSE (test code = 2217) 217 MG/DL BUN (test code = 2208) 13 MG/DL CREATININE (test code = 2214) 0.64 MG/DL eGFR AMER. (test code 128 ML/MIN/1.73 = 20981) eGFR NON- AMER. (test 110 ML/MIN/1.73 code = 49176) CALC BUN/CREAT (test code = 20 RATIO [...] 2218) 36 U/L ALT (test code = 221) 47 U/L CULTURE, [id number] 00:00:00 Test Item Value Reference Range Interpretation Comments CULTURE, URINE (test SPECIMEN NUMBER: code = 91224) [id number] COMPREHENSIVE METABOLIC [id number] 00:00:00 Test Item Value Reference Range Interpretation Comments GLUCOSE (test code = 2217) 217 MG/DL BUN (test code = 2208) 13 MG/DL CREATININE (test code = 2214) 0.64 MG/DL eGFR AMER. (test code 128 ML/MIN/1.73 = 76792) eGFR NON- AMER. (test 110 ML/MIN/1.73 code = 15076) CALC BUN/CREAT (test code = 20 RATIO [...] (test code = 2219) 47 U/L CULTURE, [id number] 00:00:00 Test Item Value Reference Range Interpretation Comments CULTURE, URINE (test SPECIMEN NUMBER: code = 12284) [id number] LIPID [id number] 00:00:00 Test Item Value Reference Range Interpretation Comments CHOLESTEROL (test code = 2210) 220 MG/DL TRIGLYCERIDES (test code = 2232) 873 MG/DL HDL CHOLESTEROL (test code = 30 MG/DL 2220) CALC LDL CHOL (test code = 2237) (NOTE) MG/DL RISK RATIO LDL/HDL (test code = (NOTE) RATIO 2238) LIPID [id number] 00:00:00 Test Item Value Reference Range Interpretation Comments CHOLESTEROL (test code = 2210) 220 MG/DL TRIGLYCERIDES (test code = 2232) 873 MG/DL HDL CHOLESTEROL (test code = 30 MG/DL 2220) CALC LDL CHOL (test code = 2237) (NOTE) MG/DL RISK RATIO LDL/HDL (test code = (NOTE) RATIO 2238) HEMOGLOBIN [id number] 00:00:00 Test Item Value Reference Range Interpretation Comments HEMOGLOBIN A1c (test code = 27077) 10.9 % HEMOGLOBIN [id number] 00:00:00 Test Item Value Reference Range Interpretation Comments HEMOGLOBIN A1c (test code = 72545) 10.9 % HEMOGLOBIN [id number] 00:00:00 Test Item Value Reference Range Interpretation Comments HEMOGLOBIN A1c (test code = 08830) 10.9 % - XR ANKLE 3 + V [id number] 07:19:00 Patient Name: Marge Franco Unit No: [id number] EXAMS: CPT CODE: [id number] XR ANKLE 3 + V RT 19693 Right ankle 3 views COMMENT: There is [...] MD CC: Judi Hodge DO Technologist: SAMANTHA FESSAHAYE, RT(R) Transcribed D/ (718) Rene[facility] NAME: Marge Franco [address] [place] [address] PHYS: Judi Cardenas DO : 1980 AGE: 40 SEX: F [place], [place] [address] LOC: TEOFILO PHONE #: [phone] EXAM DATE: 02/13/2020 STATUS: DEP ER FAX #: [phone] RAD #: D/C DT PAGE 1 Signed Report Patient Name: Marge Franco Unit No: [id number] EXAMS: CPT CODE: [id number] XR ANKLE 3 + V RT 20726 (Continued) Orig Print D/T: S: 02/14/2020 (721) [facility] NAME: Marge Franco [address] [place] [address] PHYS: Judi Cardenas DO : 1980 AGE: 40 SEX: F [place] [address] LOC: TEOFILO PHONE #: [phone] EXAM DATE: 02/13/2020 STATUS: DEP ER FAX #: [phone] RAD #: D/C DT PAGE 2 Signed Report- XR FOOT 2 VIEWS [id number] 07:19:00 Patient Name: Marge Franco Unit No: [id number] EXAMS: CPT CODE: [id number] XR FO[place] [address] [place] [address] Right ankle 3 views COMMENT: There is [...] MD CC: Judi Hodge DO Technologist: SAMANTHA MORALES RT(R) Transcribed D/ (718) MickeyL [facility] NAME: Marge Franco [address] [facility] PHYS: Judi Cardenas DO : 1980 AGE: 40 SEX: F [place], [place] [address]BIGQ NO: [id number] LOC: TEOFILO PHONE #: [phone] EXAM DATE: 02/13/2020 STATUS: DEP ER FAX #: [phone] RAD #: D/C DT PAGE 1 Signed Report Patient Name: Marge Franco Unit No: [id number] EXAMS: CPT CODE: [id number] XR FO[place] [address] [place] [address] (Continued) Orig Print D/T: S: 02/14/2020 (0722) [facility] NAME: Marge Franco [address] [facility] PHYS: Judi Cardenas DO : 1980 AGE: 40 SEX: F [place], [place] [address] LOC: TEOFILO PHONE #: [phone] EXAM DATE: 02/13/2020 STATUS: DEP ER FAX #: [phone] RAD #: D/C DT PAGE 2 Signed Report [id number] 11:17:00 Test Item Value Reference Range Interpretation Comments GLUBED (test code = GLUBED) 119 mg/dL 60-125 N [id number] 08:15:00 Test Item Value Reference Range Interpretation Comments GLUBED (test code = GLUBED) 117 mg/dL 60-125 N Novel Coronavirus 2019 [id number] 17:12:00 Test Item Value Reference Range Interpretation Comments Novel Coronavirus 2019 Inhouse (test Negative Negative code = COVNONPUI) Novel Coronavirus 2019 [id number] 17:12:00 Test Item Value Reference Range Interpretation Comments Novel Coronavirus 2019 Inhouse (test Negative Negative code = COVNONPUI) CBC W/AUTO [id number] 20:19:00 Test Item Value Reference Range Interpretation [...] 0-0 N code = NRBC) BASIC METABOLIC [id number] 19:54:00 Test Item Value Reference Range Interpretation [...] RATE (test code = GFR) mL/mi n/1.73 [id number] Range:Healthy A dults >90 mL/min/1.73 m2 For Chronic Kid stoney Disease: Stage II Mild Decrease i n GFR 60-90 Stage III Moderate Decrea se in GFR 30-59 Stage IV Severe Decrease in GFR 15-29 Stage V Kidney Failure <15 CREATININE (test code 0.83 mg/dL 0.55-1.30 N = CREAT) CALCIUM (test code = 9.6 mg/dL 8.2-10.1 N CA) - CT LOWER EXTRM W/O C [id number] 14:57:00 Patient Name: MARGE FRANCO Unit No: [id number] EXAMS: CPT CODE: [id number] CT LOWER EXTRM W/[place] [address] [address] SCAN RIGHT ANKLE WITH RECONSTRUCTION DIAGNOSIS: [...] with ACR practice standards and adherence to oil pipe inspector's recommendations. INDICATION: RIGHT ANKLE PAIN COMPARISON: None. COMMENT: Findings are as described above. at 1457 Reported and signed by: America Schuler MD CC: Elbert Wilson MD Technologist: Shaan Prakash ins,RT(R) CTDI: DLP: Trnscrpt: 01/04/2020 (1457) Mayi.GVG [facility] NAME: MARGE FRANCO [facility] [address] [place] [address] PHYS: Elbert Rodrigues MD : 1980 AGE: 39 SEX: F [place] [address] LOC: Y.RAD PHONE #: [phone] EXAM DATE: 01/04/2020 STATUS: REG CLI FAX #: [phone] RAD #: D/C DT PAGE 1 Signed Report Patient Name: MARGE FRANCOOTILDE Unit No: [id number] EXAMS: CPT CODE: [id number] CT LOWER EXTRM W/[place] [address] (Continued) Orig Print D/T: S: 01/04/2020 (1500) [facility] NAME: MARGE FRANCO BETZAIDA [address] [place] [address] PHYS: Elbert Rodrigues MD : 1980 AGE: 39 SEX: F [place] [address] LOC: Y.RAD PHONE #: [phone] EXAM DATE: 01/04/2020 STATUS: REG CLI FAX #: [phone] RAD #: D/C DT PAGE 2 Signed ReportCULTURE, URINE 2019-12-22 00:00:00 Test Item Value Reference Range Interpretation Comments CULTURE, URINE (test SPECIMEN NUMBER: code = 29011) [id number] CULTURE, [id number] 00:00:00 Test Item Value Reference Range Interpretation Comments CULTURE, URINE (test SPECIMEN NUMBER: code = 91568) [id number] CULTURE, [id number] 00:00:00 Test Item Value Reference Range Interpretation Comments CULTURE, URINE (test SPECIMEN NUMBER: code = 00930) [id number] CULTURE, [id number] 00:00:00 Test Item Value Reference Range Interpretation Comments CULTURE, URINE (test SPECIMEN NUMBER: code = 07953) [id number] CULTURE, [id number] 00:00:00 Test Item Value Reference Range Interpretation Comments CULTURE, URINE (test SPECIMEN NUMBER: code = 04904) [id number] CULTURE, [id number] 00:00:00 Test Item Value Reference Range Interpretation Comments CULTURE, URINE (test SPECIMEN NUMBER: code = 83418) [id number] CULTURE, [id number] 00:00:00 Test Item Value Reference Range Interpretation Comments CULTURE, URINE (test SPECIMEN NUMBER: code = 02126) [id number] CULTURE, [id number] 00:00:00 Test Item Value Reference Range Interpretation Comments CULTURE, URINE (test SPECIMEN NUMBER: code = 44481) [id number] CULTURE, [id number] 00:00:00 Test Item Value Reference Range Interpretation Comments CULTURE, URINE (test SPECIMEN NUMBER: code = 15830) [id number] CULTURE, [id number] 00:00:00 Test Item Value Reference Range Interpretation Comments CULTURE, URINE (test SPECIMEN NUMBER: code = 39555) [id number] CULTURE, [id number] 00:00:00 Test Item Value Reference Range Interpretation Comments CULTURE, URINE (test SPECIMEN NUMBER: code = 32269) [id number] CULTURE, [id number] 00:00:00 Test Item Value Reference Range Interpretation Comments CULTURE, URINE (test SPECIMEN NUMBER: code = 38417) [id number] CULTURE, [id number] 00:00:00 Test Item Value Reference Range Interpretation Comments CULTURE, URINE (test SPECIMEN NUMBER: code = 94025) [id number] CULTURE, [id number] 00:00:00 Test Item Value Reference Range Interpretation Comments CULTURE, URINE (test SPECIMEN NUMBER: code = 12340) [id number] CULTURE, [id number] 00:00:00 Test Item Value Reference Range Interpretation Comments CULTURE, URINE (test SPECIMEN NUMBER: code = 38379) [id number] CULTURE, [id number] 00:00:00 Test Item Value Reference Range Interpretation Comments CULTURE, URINE (test SPECIMEN NUMBER: code = 22652) [id number] CULTURE, [id number] 00:00:00 Test Item Value Reference Range Interpretation Comments CULTURE, URINE (test SPECIMEN NUMBER: code = 01785) [id number] CULTURE, [id number] 00:00:00 Test Item Value Reference Range Interpretation Comments CULTURE, URINE (test SPECIMEN NUMBER: code = 18751) [id number] CULTURE, [id number] 00:00:00 Test Item Value Reference Range Interpretation Comments CULTURE, URINE (test SPECIMEN NUMBER: code = 67284) [id number] CULTURE, [id number] 00:00:00 Test Item Value Reference Range Interpretation Comments CULTURE, URINE (test SPECIMEN NUMBER: code = 87682) [id number] CULTURE, [id number] 00:00:00 Test Item Value Reference Range Interpretation Comments CULTURE, URINE (test SPECIMEN NUMBER: code = 98269) [id number] LIPID [id number] 00:00:00 Test Item Value Reference Range Interpretation Comments CHOLESTEROL (test code = 2210) 354 MG/DL TRIGLYCERIDES (test code = 2232) 2608 MG/DL HDL CHOLESTEROL (test code = 19 MG/DL 2220) CALC LDL CHOL (test code = 2237) NOTE MG/DL RISK RATIO LDL/HDL (test code = (NOTE) RATIO 2238) LIPID [id number] 00:00:00 Test Item Value Reference Range Interpretation Comments CHOLESTEROL (test code = 2210) 354 MG/DL TRIGLYCERIDES (test code = 2232) 2608 MG/DL HDL CHOLESTEROL (test code = 19 MG/DL 2220) CALC LDL CHOL (test code = 2237) NOTE MG/DL RISK RATIO LDL/HDL (test code = (NOTE) RATIO 2238) HEMOGLOBIN [id number] 00:00:00 Test Item Value Reference Range Interpretation Comments HEMOGLOBIN A1c (test code = 93471) 11.5 % HEMOGLOBIN [id number] 00:00:00 Test Item Value Reference Range Interpretation Comments HEMOGLOBIN A1c (test code = 66804) 11.5 % HEMOGLOBIN [id number] 00:00:00 Test Item Value Reference Range Interpretation Comments HEMOGLOBIN A1c (test code = 39156) 11.5 % MICROALBUMIN/CREATININE, RANDOM AND [id number] 00:00:00 Test Item Value Reference Range Interpretation Comments CREATININE, URINE, CONC. (test 92.4 MG/DL code = 2072) ALBUMIN, URINE, RANDOM (test code 158.5 MG/DL = 67095) CALC ALBUMIN/CREAT, RND (test 1715 MG/G code = 20802) MICROALBUMIN/CREATININE, RANDOM AND [id number] 00:00:00 Test Item Value Reference Range Interpretation Comments CREATININE, URINE, CONC. (test 92.4 MG/DL code = 2072) ALBUMIN, URINE, RANDOM (test code 158.5 MG/DL = 34986) CALC ALBUMIN/CREAT, RND (test 1715 MG/G code = 79760) LIPID [id number] 00:00:00 Test Item Value Reference Range Interpretation Comments CHOLESTEROL (test code = 2210) 354 MG/DL TRIGLYCERIDES (test code = 2232) 2608 MG/DL HDL CHOLESTEROL (test code = 19 MG/DL 2220) CALC LDL CHOL (test code = 2237) NOTE MG/DL RISK RATIO LDL/HDL (test code = (NOTE) RATIO 2238) LIPID [id number] 00:00:00 Test Item Value Reference Range Interpretation Comments CHOLESTEROL (test code = 2210) 354 MG/DL TRIGLYCERIDES (test code = 2232) 2608 MG/DL HDL CHOLESTEROL (test code = 19 MG/DL 2220) CALC LDL CHOL (test code = 2237) NOTE MG/DL RISK RATIO LDL/HDL (test code = (NOTE) RATIO 2238) HEMOGLOBIN [id number] 00:00:00 Test Item Value Reference Range Interpretation Comments HEMOGLOBIN A1c (test code = 32317) 11.5 % HEMOGLOBIN [id number] 00:00:00 Test Item Value Reference Range Interpretation Comments HEMOGLOBIN A1c (test code = 32425) 11.5 % HEMOGLOBIN [id number] 00:00:00 Test Item Value Reference Range Interpretation Comments HEMOGLOBIN A1c (test code = 45519) 11.5 % MICROALBUMIN/CREATININE, RANDOM AND [id number] 00:00:00 Test Item Value Reference Range Interpretation Comments CREATININE, URINE, CONC. (test 92.4 MG/DL code = 2072) ALBUMIN, URINE, RANDOM (test code 158.5 MG/DL = 65399) CALC ALBUMIN/CREAT, RND (test 1715 MG/G code = 02215) MICROALBUMIN/CREATININE, RANDOM AND [id number] 00:00:00 Test Item Value Reference Range Interpretation Comments CREATININE, URINE, CONC. (test 92.4 MG/DL code = 2072) ALBUMIN, URINE, RANDOM (test code 158.5 MG/DL = 09816) CALC ALBUMIN/CREAT, RND (test 1715 MG/G code = 07232) LIPID [id number] 00:00:00 Test Item Value Reference Range Interpretation Comments CHOLESTEROL (test code = 2210) 354 MG/DL TRIGLYCERIDES (test code = 2232) 2608 MG/DL HDL CHOLESTEROL (test code = 19 MG/DL 2220) CALC LDL CHOL (test code = 2237) NOTE MG/DL RISK RATIO LDL/HDL (test code = (NOTE) RATIO 2238) LIPID [id number] 00:00:00 Test Item Value Reference Range Interpretation Comments CHOLESTEROL (test code = 2210) 354 MG/DL TRIGLYCERIDES (test code = 2232) 2608 MG/DL HDL CHOLESTEROL (test code = 19 MG/DL 2220) CALC LDL CHOL (test code = 2237) NOTE MG/DL RISK RATIO LDL/HDL (test code = (NOTE) RATIO 2238) HEMOGLOBIN [id number] 00:00:00 Test Item Value Reference Range Interpretation Comments HEMOGLOBIN A1c (test code = 22519) 11.5 % HEMOGLOBIN [id number] 00:00:00 Test Item Value Reference Range Interpretation Comments HEMOGLOBIN A1c (test code = 11868) 11.5 % HEMOGLOBIN [id number] 00:00:00 Test Item Value Reference Range Interpretation Comments HEMOGLOBIN A1c (test code = 42042) 11.5 % MICROALBUMIN/CREATININE, RANDOM AND [id number] 00:00:00 Test Item Value Reference Range Interpretation Comments CREATININE, URINE, CONC. (test 92.4 MG/DL code = 2072) ALBUMIN, URINE, RANDOM (test code 158.5 MG/DL = 77546) CALC ALBUMIN/CREAT, RND (test 1715 MG/G code = 06787) MICROALBUMIN/CREATININE, RANDOM AND [id number] 00:00:00 Test Item Value Reference Range Interpretation Comments CREATININE, URINE, CONC. (test 92.4 MG/DL code = 2072) ALBUMIN, URINE, RANDOM (test code 158.5 MG/DL = 42107) CALC ALBUMIN/CREAT, RND (test 1715 MG/G code = 10442) LIPID [id number] 00:00:00 Test Item Value Reference Range Interpretation Comments CHOLESTEROL (test code = 2210) 354 MG/DL TRIGLYCERIDES (test code = 2232) 2608 MG/DL HDL CHOLESTEROL (test code = 19 MG/DL 2220) CALC LDL CHOL (test code = 2237) NOTE MG/DL RISK RATIO LDL/HDL (test code = (NOTE) RATIO 2238) LIPID [id number] 00:00:00 Test Item Value Reference Range Interpretation Comments CHOLESTEROL (test code = 2210) 354 MG/DL TRIGLYCERIDES (test code = 2232) 2608 MG/DL HDL CHOLESTEROL (test code = 19 MG/DL 2220) CALC LDL CHOL (test code = 2237) NOTE MG/DL RISK RATIO LDL/HDL (test code = (NOTE) RATIO 2238) HEMOGLOBIN [id number] 00:00:00 Test Item Value Reference Range Interpretation Comments HEMOGLOBIN A1c (test code = 93932) 11.5 % HEMOGLOBIN [id number] 00:00:00 Test Item Value Reference Range Interpretation Comments HEMOGLOBIN A1c (test code = 33091) 11.5 % HEMOGLOBIN [id number] 00:00:00 Test Item Value Reference Range Interpretation Comments HEMOGLOBIN A1c (test code = 79924) 11.5 % MICROALBUMIN/CREATININE, RANDOM AND [id number] 00:00:00 Test Item Value Reference Range Interpretation Comments CREATININE, URINE, CONC. (test 92.4 MG/DL code = 2072) ALBUMIN, URINE, RANDOM (test code 158.5 MG/DL = 02412) CALC ALBUMIN/CREAT, RND (test 1715 MG/G code = 00800) MICROALBUMIN/CREATININE, RANDOM AND [id number] 00:00:00 Test Item Value Reference Range Interpretation Comments CREATININE, URINE, CONC. (test 92.4 MG/DL code = 2072) ALBUMIN, URINE, RANDOM (test code 158.5 MG/DL = 06382) CALC ALBUMIN/CREAT, RND (test 1715 MG/G code = 25563) LIPID [id number] 00:00:00 Test Item Value Reference Range Interpretation Comments CHOLESTEROL (test code = 2210) 354 MG/DL TRIGLYCERIDES (test code = 2232) 2608 MG/DL HDL CHOLESTEROL (test code = 19 MG/DL 2220) CALC LDL CHOL (test code = 2237) NOTE MG/DL RISK RATIO LDL/HDL (test code = (NOTE) RATIO 2238) LIPID [id number] 00:00:00 Test Item Value Reference Range Interpretation Comments CHOLESTEROL (test code = 2210) 354 MG/DL TRIGLYCERIDES (test code = 2232) 2608 MG/DL HDL CHOLESTEROL (test code = 19 MG/DL 2220) CALC LDL CHOL (test code = 2237) NOTE MG/DL RISK RATIO LDL/HDL (test code = (NOTE) RATIO 2238) HEMOGLOBIN [id number] 00:00:00 Test Item Value Reference Range Interpretation Comments HEMOGLOBIN A1c (test code = 58603) 11.5 % HEMOGLOBIN [id number] 00:00:00 Test Item Value Reference Range Interpretation Comments HEMOGLOBIN A1c (test code = 22050) 11.5 % HEMOGLOBIN [id number] 00:00:00 Test Item Value Reference Range Interpretation Comments HEMOGLOBIN A1c (test code = 61917) 11.5 % MICROALBUMIN/CREATININE, RANDOM AND [id number] 00:00:00 Test Item Value Reference Range Interpretation Comments CREATININE, URINE, CONC. (test 92.4 MG/DL code = 2072) ALBUMIN, URINE, RANDOM (test code 158.5 MG/DL = 88302) CALC ALBUMIN/CREAT, RND (test 1715 MG/G code = 38385) MICROALBUMIN/CREATININE, RANDOM AND [id number] 00:00:00 Test Item Value Reference Range Interpretation Comments CREATININE, URINE, CONC. (test 92.4 MG/DL code = 2072) ALBUMIN, URINE, RANDOM (test code 158.5 MG/DL = 63910) CALC ALBUMIN/CREAT, RND (test 1715 MG/G code = 54245) LIPID [id number] 00:00:00 Test Item Value Reference Range Interpretation Comments CHOLESTEROL (test code = 2210) 354 MG/DL TRIGLYCERIDES (test code = 2232) 2608 MG/DL HDL CHOLESTEROL (test code = 19 MG/DL 2220) CALC LDL CHOL (test code = 2237) NOTE MG/DL RISK RATIO LDL/HDL (test code = (NOTE) RATIO 2238) LIPID [id number] 00:00:00 Test Item Value Reference Range Interpretation Comments CHOLESTEROL (test code = 2210) 354 MG/DL TRIGLYCERIDES (test code = 2232) 2608 MG/DL HDL CHOLESTEROL (test code = 19 MG/DL 2220) CALC LDL CHOL (test code = 2237) NOTE MG/DL RISK RATIO LDL/HDL (test code = (NOTE) RATIO 2238) HEMOGLOBIN [id number] 00:00:00 Test Item Value Reference Range Interpretation Comments HEMOGLOBIN A1c (test code = 39057) 11.5 % HEMOGLOBIN [id number] 00:00:00 Test Item Value Reference Range Interpretation Comments HEMOGLOBIN A1c (test code = 42392) 11.5 % HEMOGLOBIN [id number] 00:00:00 Test Item Value Reference Range Interpretation Comments HEMOGLOBIN A1c (test code = 31142) 11.5 % MICROALBUMIN/CREATININE, RANDOM AND [id number] 00:00:00 Test Item Value Reference Range Interpretation Comments CREATININE, URINE, CONC. (test 92.4 MG/DL code = 2072) ALBUMIN, URINE, RANDOM (test code 158.5 MG/DL = 15244) CALC ALBUMIN/CREAT, RND (test 1715 MG/G code = 67085) MICROALBUMIN/CREATININE, RANDOM AND [id number] 00:00:00 Test Item Value Reference Range Interpretation Comments CREATININE, URINE, CONC. (test 92.4 MG/DL code = 2072) ALBUMIN, URINE, RANDOM (test code 158.5 MG/DL = 60825) CALC ALBUMIN/CREAT, RND (test 1715 MG/G code = 92911) LIPID [id number] 00:00:00 Test Item Value Reference Range Interpretation Comments CHOLESTEROL (test code = 2210) 354 MG/DL TRIGLYCERIDES (test code = 2232) 2608 MG/DL HDL CHOLESTEROL (test code = 19 MG/DL 2220) CALC LDL CHOL (test code = 2237) NOTE MG/DL RISK RATIO LDL/HDL (test code = (NOTE) RATIO 2238) LIPID [id number] 00:00:00 Test Item Value Reference Range Interpretation Comments CHOLESTEROL (test code = 2210) 354 MG/DL TRIGLYCERIDES (test code = 2232) 2608 MG/DL HDL CHOLESTEROL (test code = 19 MG/DL 2220) CALC LDL CHOL (test code = 2237) NOTE MG/DL RISK RATIO LDL/HDL (test code = (NOTE) RATIO 2238) HEMOGLOBIN [id number] 00:00:00 Test Item Value Reference Range Interpretation Comments HEMOGLOBIN A1c (test code = 37126) 11.5 % HEMOGLOBIN [id number] 00:00:00 Test Item Value Reference Range Interpretation Comments HEMOGLOBIN A1c (test code = 20652) 11.5 % HEMOGLOBIN [id number] 00:00:00 Test Item Value Reference Range Interpretation Comments HEMOGLOBIN A1c (test code = 73517) 11.5 % MICROALBUMIN/CREATININE, RANDOM AND [id number] 00:00:00 Test Item Value Reference Range Interpretation Comments CREATININE, URINE, CONC. (test 92.4 MG/DL code = 2072) ALBUMIN, URINE, RANDOM (test code 158.5 MG/DL = 13710) CALC ALBUMIN/CREAT, RND (test 1715 MG/G code = 10982) MICROALBUMIN/CREATININE, RANDOM AND [id number] 00:00:00 Test Item Value Reference Range Interpretation Comments CREATININE, URINE, CONC. (test 92.4 MG/DL code = 2072) ALBUMIN, URINE, RANDOM (test code 158.5 MG/DL = 36399) CALC ALBUMIN/CREAT, RND (test 1715 MG/G code = 77402) LIPID [id number] 00:00:00 Test Item Value Reference Range Interpretation Comments CHOLESTEROL (test code = 2210) 354 MG/DL TRIGLYCERIDES (test code = 2232) 2608 MG/DL HDL CHOLESTEROL (test code = 19 MG/DL 2220) CALC LDL CHOL (test code = 2237) NOTE MG/DL RISK RATIO LDL/HDL (test code = (NOTE) RATIO 2238) HEMOGLOBIN [id number] 00:00:00 Test Item Value Reference Range Interpretation Comments HEMOGLOBIN A1c (test code = 29615) 11.5 % HEMOGLOBIN [id number] 00:00:00 Test Item Value Reference Range Interpretation Comments HEMOGLOBIN A1c (test code = 69454) 11.5 % MICROALBUMIN/CREATININE, RANDOM AND [id number] 00:00:00 Test Item Value Reference Range Interpretation Comments CREATININE, URINE, CONC. (test 92.4 MG/DL code = 2072) ALBUMIN, URINE, RANDOM (test code 158.5 MG/DL = 00156) CALC ALBUMIN/CREAT, RND (test 1715 MG/G code = 33270) LIPID [id number] 00:00:00 Test Item Value Reference Range Interpretation Comments CHOLESTEROL (test code = 2210) 354 MG/DL TRIGLYCERIDES (test code = 2232) 2608 MG/DL HDL CHOLESTEROL (test code = 19 MG/DL 2220) CALC LDL CHOL (test code = 2237) NOTE MG/DL RISK RATIO LDL/HDL (test code = (NOTE) RATIO 2238) LIPID [id number] 00:00:00 Test Item Value Reference Range Interpretation Comments CHOLESTEROL (test code = 2210) 354 MG/DL TRIGLYCERIDES (test code = 2232) 2608 MG/DL HDL CHOLESTEROL (test code = 19 MG/DL 2220) CALC LDL CHOL (test code = 2237) NOTE MG/DL RISK RATIO LDL/HDL (test code = (NOTE) RATIO 2238) HEMOGLOBIN [id number] 00:00:00 Test Item Value Reference Range Interpretation Comments HEMOGLOBIN A1c (test code = 23243) 11.5 % HEMOGLOBIN [id number] 00:00:00 Test Item Value Reference Range Interpretation Comments HEMOGLOBIN A1c (test code = 02661) 11.5 % HEMOGLOBIN [id number] 00:00:00 Test Item Value Reference Range Interpretation Comments HEMOGLOBIN A1c (test code = 74331) 11.5 % MICROALBUMIN/CREATININE, RANDOM AND [id number] 00:00:00 Test Item Value Reference Range Interpretation Comments CREATININE, URINE, CONC. (test 92.4 MG/DL code = 2072) ALBUMIN, URINE, RANDOM (test code 158.5 MG/DL = 77912) CALC ALBUMIN/CREAT, RND (test 1715 MG/G code = 17452) MICROALBUMIN/CREATININE, RANDOM AND [id number] 00:00:00 Test Item Value Reference Range Interpretation Comments CREATININE, URINE, CONC. (test 92.4 MG/DL code = 2072) ALBUMIN, URINE, RANDOM (test code 158.5 MG/DL = 81100) CALC ALBUMIN/CREAT, RND (test 1715 MG/G code = 52482) LIPID [id number] 00:00:00 Test Item Value Reference Range Interpretation Comments CHOLESTEROL (test code = 2210) 354 MG/DL TRIGLYCERIDES (test code = 2232) 2608 MG/DL HDL CHOLESTEROL (test code = 19 MG/DL 2220) CALC LDL CHOL (test code = 2237) NOTE MG/DL RISK RATIO LDL/HDL (test code = (NOTE) RATIO 2238) LIPID [id number] 00:00:00 Test Item Value Reference Range Interpretation Comments CHOLESTEROL (test code = 2210) 354 MG/DL TRIGLYCERIDES (test code = 2232) 2608 MG/DL HDL CHOLESTEROL (test code = 19 MG/DL 2220) CALC LDL CHOL (test code = 2237) NOTE MG/DL RISK RATIO LDL/HDL (test code = (NOTE) RATIO 2238) HEMOGLOBIN [id number] 00:00:00 Test Item Value Reference Range Interpretation Comments HEMOGLOBIN A1c (test code = 44524) 11.5 % HEMOGLOBIN [id number] 00:00:00 Test Item Value Reference Range Interpretation Comments HEMOGLOBIN A1c (test code = 96880) 11.5 % HEMOGLOBIN [id number] 00:00:00 Test Item Value Reference Range Interpretation Comments HEMOGLOBIN A1c (test code = 97570) 11.5 % MICROALBUMIN/CREATININE, RANDOM AND [id number] 00:00:00 Test Item Value Reference Range Interpretation Comments CREATININE, URINE, CONC. (test 92.4 MG/DL code = 2072) ALBUMIN, URINE, RANDOM (test code 158.5 MG/DL = 42597) CALC ALBUMIN/CREAT, RND (test 1715 MG/G code = 27682) MICROALBUMIN/CREATININE, RANDOM AND [id number] 00:00:00 Test Item Value Reference Range Interpretation Comments CREATININE, URINE, CONC. (test 92.4 MG/DL code = 2072) ALBUMIN, URINE, RANDOM (test code 158.5 MG/DL = 51268) CALC ALBUMIN/CREAT, RND (test 1715 MG/G code = 97016) LIPID [id number] 00:00:00 Test Item Value Reference Range Interpretation Comments CHOLESTEROL (test code = 2210) 354 MG/DL TRIGLYCERIDES (test code = 2232) 2608 MG/DL HDL CHOLESTEROL (test code = 19 MG/DL 2220) CALC LDL CHOL (test code = 2237) NOTE MG/DL RISK RATIO LDL/HDL (test code = (NOTE) RATIO 2238) LIPID [id number] 00:00:00 Test Item Value Reference Range Interpretation Comments CHOLESTEROL (test code = 2210) 354 MG/DL TRIGLYCERIDES (test code = 2232) 2608 MG/DL HDL CHOLESTEROL (test code = 19 MG/DL 2220) CALC LDL CHOL (test code = 2237) NOTE MG/DL RISK RATIO LDL/HDL (test code = (NOTE) RATIO 2238) HEMOGLOBIN [id number] 00:00:00 Test Item Value Reference Range Interpretation Comments HEMOGLOBIN A1c (test code = 16079) 11.5 % HEMOGLOBIN [id number] 00:00:00 Test Item Value Reference Range Interpretation Comments HEMOGLOBIN A1c (test code = 45310) 11.5 % HEMOGLOBIN [id number] 00:00:00 Test Item Value Reference Range Interpretation Comments HEMOGLOBIN A1c (test code = 42321) 11.5 % MICROALBUMIN/CREATININE, RANDOM AND [id number] 00:00:00 Test Item Value Reference Range Interpretation Comments CREATININE, URINE, CONC. (test 92.4 MG/DL code = 2072) ALBUMIN, URINE, RANDOM (test code 158.5 MG/DL = 15308) CALC ALBUMIN/CREAT, RND (test 1715 MG/G code = 77893) MICROALBUMIN/CREATININE, RANDOM AND [id number] 00:00:00 Test Item Value Reference Range Interpretation Comments CREATININE, URINE, CONC. (test 92.4 MG/DL code = 2072) ALBUMIN, URINE, RANDOM (test code 158.5 MG/DL = 57815) CALC ALBUMIN/CREAT, RND (test 1715 MG/G code = 83594) CULTURE, [id number] 00:00:00 Test Item Value Reference Range Interpretation Comments CULTURE, URINE (test SPECIMEN NUMBER: code = 95539) [id number] CULTURE, [id number] 00:00:00 Test Item Value Reference Range Interpretation Comments CULTURE, URINE (test SPECIMEN NUMBER: code = 45969) [id number] CULTURE, [id number] 00:00:00 Test Item Value Reference Range Interpretation Comments CULTURE, URINE (test SPECIMEN NUMBER: code = 04531) [id number] CULTURE, [id number] 00:00:00 Test Item Value Reference Range Interpretation Comments CULTURE, URINE (test SPECIMEN NUMBER: code = 90479) [id number] CULTURE, [id number] 00:00:00 Test Item Value Reference Range Interpretation Comments CULTURE, URINE (test SPECIMEN NUMBER: code = 77184) [id number] CULTURE, [id number] 00:00:00 Test Item Value Reference Range Interpretation Comments CULTURE, URINE (test SPECIMEN NUMBER: code = 82194) [id number] CULTURE, [id number] 00:00:00 Test Item Value Reference Range Interpretation Comments CULTURE, URINE (test SPECIMEN NUMBER: code = 64228) [id number] CULTURE, [id number] 00:00:00 Test Item Value Reference Range Interpretation Comments CULTURE, URINE (test SPECIMEN NUMBER: code = 40436) [id number] CULTURE, [id number] 00:00:00 Test Item Value Reference Range Interpretation Comments CULTURE, URINE (test SPECIMEN NUMBER: code = 06245) [id number] CULTURE, [id number] 00:00:00 Test Item Value Reference Range Interpretation Comments CULTURE, URINE (test SPECIMEN NUMBER: code = 97729) [id number] CULTURE, [id number] 00:00:00 Test Item Value Reference Range Interpretation Comments CULTURE, URINE (test SPECIMEN NUMBER: code = 03221) [id number] CULTURE, [id number] 00:00:00 Test Item Value Reference Range Interpretation Comments CULTURE, URINE (test SPECIMEN NUMBER: code = 43455) [id number] CULTURE, [id number] 00:00:00 Test Item Value Reference Range Interpretation Comments CULTURE, URINE (test SPECIMEN NUMBER: code = 39036) [id number] CULTURE, [id number] 00:00:00 Test Item Value Reference Range Interpretation Comments CULTURE, URINE (test SPECIMEN NUMBER: code = 80841) [id number] CULTURE, [id number] 00:00:00 Test Item Value Reference Range Interpretation Comments CULTURE, URINE (test SPECIMEN NUMBER: code = 79252) [id number] CULTURE, [id number] 00:00:00 Test Item Value Reference Range Interpretation Comments CULTURE, URINE (test SPECIMEN NUMBER: code = 95860) [id number] CULTURE, [id number] 00:00:00 Test Item Value Reference Range Interpretation Comments CULTURE, URINE (test SPECIMEN NUMBER: code = 80858) [id number] CULTURE, [id number] 00:00:00 Test Item Value Reference Range Interpretation Comments CULTURE, URINE (test SPECIMEN NUMBER: code = 23851) [id number] CULTURE, [id number] 00:00:00 Test Item Value Reference Range Interpretation Comments CULTURE, URINE (test SPECIMEN NUMBER: code = 88935) [id number] CULTURE, [id number] 00:00:00 Test Item Value Reference Range Interpretation Comments CULTURE, URINE (test SPECIMEN NUMBER: code = 95203) [id number] CULTURE, [id number] 00:00:00 Test Item Value Reference Range Interpretation Comments CULTURE, URINE (test SPECIMEN NUMBER: code = 45058) [id number] VAGINAL PATHOGENS DNA [id number] 00:00:00 Test Item Value Reference Range Interpretation Comments ANDIE SPECIES (test code = 88181) POSITIVE G. VAGINALIS (test code = 74983) NEGATIVE T. VAGINALIS (test code = 78608) NEGATIVE VAGINAL PATHOGENS DNA [id number] 00:00:00 Test Item Value Reference Range Interpretation Comments ANDIE SPECIES (test code = 17546) POSITIVE G. VAGINALIS (test code = 88088) NEGATIVE T. VAGINALIS (test code = 59903) NEGATIVE VAGINAL PATHOGENS DNA [id number] 00:00:00 Test Item Value Reference Range Interpretation Comments ANDIE SPECIES (test code = 53360) POSITIVE G. VAGINALIS (test code = 67463) NEGATIVE T. VAGINALIS (test code = 54220) NEGATIVE VAGINAL PATHOGENS DNA [id number] 00:00:00 Test Item Value Reference Range Interpretation Comments ANDIE SPECIES (test code = 55186) POSITIVE G. VAGINALIS (test code = 12526) NEGATIVE T. VAGINALIS (test code = 31342) NEGATIVE VAGINAL PATHOGENS DNA [id number] 00:00:00 Test Item Value Reference Range Interpretation Comments ANDIE SPECIES (test code = 51818) POSITIVE G. VAGINALIS (test code = 99176) NEGATIVE T. VAGINALIS (test code = 80975) NEGATIVE VAGINAL PATHOGENS DNA [id number] 00:00:00 Test Item Value Reference Range Interpretation Comments ANDIE SPECIES (test code = 68892) POSITIVE G. VAGINALIS (test code = 59029) NEGATIVE T. VAGINALIS (test code = 44069) NEGATIVE VAGINAL PATHOGENS DNA [id number] 00:00:00 Test Item Value Reference Range Interpretation Comments ANDIE SPECIES (test code = 74988) POSITIVE G. VAGINALIS (test code = 45509) NEGATIVE T. VAGINALIS (test code = 70236) NEGATIVE VAGINAL PATHOGENS DNA [id number] 00:00:00 Test Item Value Reference Range Interpretation Comments ANDIE SPECIES (test code = 71395) POSITIVE G. VAGINALIS (test code = 77948) NEGATIVE T. VAGINALIS (test code = 17040) NEGATIVE VAGINAL PATHOGENS DNA [id number] 00:00:00 Test Item Value Reference Range Interpretation Comments ANDIE SPECIES (test code = 23513) POSITIVE G. VAGINALIS (test code = 03343) NEGATIVE T. VAGINALIS (test code = 53884) NEGATIVE VAGINAL PATHOGENS DNA [id number] 00:00:00 Test Item Value Reference Range Interpretation Comments ANDIE SPECIES (test code = 08213) POSITIVE G. VAGINALIS (test code = 93242) NEGATIVE T. VAGINALIS (test code = 07356) NEGATIVE VAGINAL PATHOGENS DNA [id number] 00:00:00 Test Item Value Reference Range Interpretation Comments ANDIE SPECIES (test code = 13587) POSITIVE G. VAGINALIS (test code = 47350) NEGATIVE T. VAGINALIS (test code = 39306) NEGATIVE VAGINAL PATHOGENS DNA [id number] 00:00:00 Test Item Value Reference Range Interpretation Comments ANDIE SPECIES (test code = 21144) POSITIVE G. VAGINALIS (test code = 99292) NEGATIVE T. VAGINALIS (test code = 65549) NEGATIVE VAGINAL PATHOGENS DNA [id number] 00:00:00 Test Item Value Reference Range Interpretation Comments ANDIE SPECIES (test code = 45813) POSITIVE G. VAGINALIS (test code = 50840) NEGATIVE T. VAGINALIS (test code = 20577) NEGATIVE VAGINAL PATHOGENS DNA [id number] 00:00:00 Test Item Value Reference Range Interpretation Comments ANDIE SPECIES (test code = 64315) POSITIVE G. VAGINALIS (test code = 02155) NEGATIVE T. VAGINALIS (test code = 34947) NEGATIVE VAGINAL PATHOGENS DNA [id number] 00:00:00 Test Item Value Reference Range Interpretation Comments ANDIE SPECIES (test code = 08716) POSITIVE G. VAGINALIS (test code = 39641) NEGATIVE T. VAGINALIS (test code = 27927) NEGATIVE VAGINAL PATHOGENS DNA [id number] 00:00:00 Test Item Value Reference Range Interpretation Comments ANDIE SPECIES (test code = ) POSITIVE G. VAGINALIS (test code = 08552) NEGATIVE T. VAGINALIS (test code = 29730) NEGATIVE VAGINAL PATHOGENS DNA [id number] 00:00:00 Test Item Value Reference Range Interpretation Comments ANDIE SPECIES (test code = 43821) POSITIVE G. VAGINALIS (test code = 10381) NEGATIVE T. VAGINALIS (test code = 49500) NEGATIVE VAGINAL PATHOGENS DNA [id number] 00:00:00 Test Item Value Reference Range Interpretation Comments ANDIE SPECIES (test code = 88869) POSITIVE G. VAGINALIS (test code = 64747) NEGATIVE T. VAGINALIS (test code = 51239) NEGATIVE VAGINAL PATHOGENS DNA [id number] 00:00:00 Test Item Value Reference Range Interpretation Comments ANDIE SPECIES (test code = 04337) POSITIVE G. VAGINALIS (test code = 89232) NEGATIVE T. VAGINALIS (test code = 47417) NEGATIVE VAGINAL PATHOGENS DNA [id number] 00:00:00 Test Item Value Reference Range Interpretation Comments ANDIE SPECIES (test code = 51671) POSITIVE G. VAGINALIS (test code = 67284) NEGATIVE T. VAGINALIS (test code = 83583) NEGATIVE VAGINAL PATHOGENS DNA [id number] 00:00:00 Test Item Value Reference Range Interpretation Comments ANDIE SPECIES (test code = 46162) POSITIVE G. VAGINALIS (test code = 76320) NEGATIVE T. VAGINALIS (test code = 60099) NEGATIVE VAGINAL PATHOGENS DNA [id number] 00:00:00 Test Item Value Reference Range Interpretation Comments ANDIE SPECIES (test code = 40026) NEGATIVE G. VAGINALIS (test code = 42560) NEGATIVE T. VAGINALIS (test code = 61138) NEGATIVE VAGINAL PATHOGENS DNA [id number] 00:00:00 Test Item Value Reference Range Interpretation Comments ANDIE SPECIES (test code = 28363) NEGATIVE G. VAGINALIS (test code = 90236) NEGATIVE T. VAGINALIS (test code = 40236) NEGATIVE VAGINAL PATHOGENS DNA [id number] 00:00:00 Test Item Value Reference Range Interpretation Comments ANDIE SPECIES (test code = 80608) NEGATIVE G. VAGINALIS (test code = 11239) NEGATIVE T. VAGINALIS (test code = 07510) NEGATIVE VAGINAL PATHOGENS DNA [id number] 00:00:00 Test Item Value Reference Range Interpretation Comments ADNIE SPECIES (test code = 07779) NEGATIVE G. VAGINALIS (test code = 97829) NEGATIVE T. VAGINALIS (test code = 00092) NEGATIVE VAGINAL PATHOGENS DNA [id number] 00:00:00 Test Item Value Reference Range Interpretation Comments ANDIE SPECIES (test code = 45779) NEGATIVE G. VAGINALIS (test code = 02868) NEGATIVE T. VAGINALIS (test code = 57121) NEGATIVE VAGINAL PATHOGENS DNA [id number] 00:00:00 Test Item Value Reference Range Interpretation Comments ANDIE SPECIES (test code = 14220) NEGATIVE G. VAGINALIS (test code = 21004) NEGATIVE T. VAGINALIS (test code = 82260) NEGATIVE VAGINAL PATHOGENS DNA [id number] 00:00:00 Test Item Value Reference Range Interpretation Comments ANDIE SPECIES (test code = 82224) NEGATIVE G. VAGINALIS (test code = 95854) NEGATIVE T. VAGINALIS (test code = 67939) NEGATIVE VAGINAL PATHOGENS DNA [id number] 00:00:00 Test Item Value Reference Range Interpretation Comments ANDIE SPECIES (test code = 54067) NEGATIVE G. VAGINALIS (test code = 25712) NEGATIVE T. VAGINALIS (test code = 98423) NEGATIVE VAGINAL PATHOGENS DNA [id number] 00:00:00 Test Item Value Reference Range Interpretation Comments ANDIE SPECIES (test code = 23137) NEGATIVE G. VAGINALIS (test code = 02237) NEGATIVE T. VAGINALIS (test code = 30302) NEGATIVE VAGINAL PATHOGENS DNA [id number] 00:00:00 Test Item Value Reference Range Interpretation Comments ANDIE SPECIES (test code = 00003) NEGATIVE G. VAGINALIS (test code = 17814) NEGATIVE T. VAGINALIS (test code = 31465) NEGATIVE VAGINAL PATHOGENS DNA [id number] 00:00:00 Test Item Value Reference Range Interpretation Comments ANDIE SPECIES (test code = 93091) NEGATIVE G. VAGINALIS (test code = 64948) NEGATIVE T. VAGINALIS (test code = 40651) NEGATIVE VAGINAL PATHOGENS DNA [id number] 00:00:00 Test Item Value Reference Range Interpretation Comments ANDIE SPECIES (test code = 15626) NEGATIVE G. VAGINALIS (test code = 43834) NEGATIVE T. VAGINALIS (test code = 76902) NEGATIVE VAGINAL PATHOGENS DNA [id number] 00:00:00 Test Item Value Reference Range Interpretation Comments ANDIE SPECIES (test code = 62216) NEGATIVE G. VAGINALIS (test code = 86057) NEGATIVE T. VAGINALIS (test code = 13683) NEGATIVE VAGINAL PATHOGENS DNA [id number] 00:00:00 Test Item Value Reference Range Interpretation Comments ANDIE SPECIES (test code = 12333) NEGATIVE G. VAGINALIS (test code = 84104) NEGATIVE T. VAGINALIS (test code = 43586) NEGATIVE VAGINAL PATHOGENS DNA [id number] 00:00:00 Test Item Value Reference Range Interpretation Comments ANDIE SPECIES (test code = 82575) NEGATIVE G. VAGINALIS (test code = 77656) NEGATIVE T. VAGINALIS (test code = 82247) NEGATIVE VAGINAL PATHOGENS DNA [id number] 00:00:00 Test Item Value Reference Range Interpretation Comments ANDIE SPECIES (test code = 96773) NEGATIVE G. VAGINALIS (test code = 56850) NEGATIVE T. VAGINALIS (test code = 31636) NEGATIVE VAGINAL PATHOGENS DNA [id number] 00:00:00 Test Item Value Reference Range Interpretation Comments ANDIE SPECIES (test code = 64999) NEGATIVE G. VAGINALIS (test code = 37238) NEGATIVE T. VAGINALIS (test code = 84345) NEGATIVE VAGINAL PATHOGENS DNA [id number] 00:00:00 Test Item Value Reference Range Interpretation Comments ANDIE SPECIES (test code = 79738) NEGATIVE G. VAGINALIS (test code = 36782) NEGATIVE T. VAGINALIS (test code = 41296) NEGATIVE VAGINAL PATHOGENS DNA [id number] 00:00:00 Test Item Value Reference Range Interpretation Comments ANDIE SPECIES (test code = 86783) NEGATIVE G. VAGINALIS (test code = 85817) NEGATIVE T. VAGINALIS (test code = 74690) NEGATIVE VAGINAL PATHOGENS DNA [id number] 00:00:00 Test Item Value Reference Range Interpretation Comments ANDIE SPECIES (test code = 96881) NEGATIVE G. VAGINALIS (test code = 70729) NEGATIVE T. VAGINALIS (test code = 40156) NEGATIVE VAGINAL PATHOGENS DNA [id number] 00:00:00 Test Item Value Reference Range Interpretation Comments ANDIE SPECIES (test code = 28757) NEGATIVE G. VAGINALIS (test code = 36189) NEGATIVE T. VAGINALIS (test code = 49516) NEGATIVE VAGINAL PATHOGENS DNA [id number] 00:00:00 Test Item Value Reference Range Interpretation Comments ANDIE SPECIES (test code = 89736) NEGATIVE G. VAGINALIS (test code = 69838) POSITIVE T. VAGINALIS (test code = 15758) NEGATIVE VAGINAL PATHOGENS DNA [id number] 00:00:00 Test Item Value Reference Range Interpretation Comments ANDIE SPECIES (test code = 39689) NEGATIVE G. VAGINALIS (test code = 09633) POSITIVE T. VAGINALIS (test code = 30616) NEGATIVE VAGINAL PATHOGENS DNA [id number] 00:00:00 Test Item Value Reference Range Interpretation Comments ANDIE SPECIES (test code = 27994) NEGATIVE G. VAGINALIS (test code = 70268) POSITIVE T. VAGINALIS (test code = 00517) NEGATIVE VAGINAL PATHOGENS DNA [id number] 00:00:00 Test Item Value Reference Range Interpretation Comments ANDIE SPECIES (test code = 40770) NEGATIVE G. VAGINALIS (test code = 23041) POSITIVE T. VAGINALIS (test code = 22033) NEGATIVE VAGINAL PATHOGENS DNA [id number] 00:00:00 Test Item Value Reference Range Interpretation Comments ANDIE SPECIES (test code = 69218) NEGATIVE G. VAGINALIS (test code = 85656) POSITIVE T. VAGINALIS (test code = 08492) NEGATIVE VAGINAL PATHOGENS DNA [id number] 00:00:00 Test Item Value Reference Range Interpretation Comments ANDIE SPECIES (test code = 80812) NEGATIVE G. VAGINALIS (test code = 99875) POSITIVE T. VAGINALIS (test code = 79046) NEGATIVE VAGINAL PATHOGENS DNA [id number] 00:00:00 Test Item Value Reference Range Interpretation Comments ANDIE SPECIES (test code = 12840) NEGATIVE G. VAGINALIS (test code = 72245) POSITIVE T. VAGINALIS (test code = 18667) NEGATIVE VAGINAL PATHOGENS DNA [id number] 00:00:00 Test Item Value Reference Range Interpretation Comments ANDIE SPECIES (test code = 19319) NEGATIVE G. VAGINALIS (test code = 11060) POSITIVE T. VAGINALIS (test code = 47509) NEGATIVE VAGINAL PATHOGENS DNA [id number] 00:00:00 Test Item Value Reference Range Interpretation Comments ANDIE SPECIES (test code = 55616) NEGATIVE G. VAGINALIS (test code = 69615) POSITIVE T. VAGINALIS (test code = 50978) NEGATIVE VAGINAL PATHOGENS DNA [id number] 00:00:00 Test Item Value Reference Range Interpretation Comments ANDIE SPECIES (test code = 92092) NEGATIVE G. VAGINALIS (test code = 53234) POSITIVE T. VAGINALIS (test code = 55235) NEGATIVE VAGINAL PATHOGENS DNA [id number] 00:00:00 Test Item Value Reference Range Interpretation Comments ANDIE SPECIES (test code = 31206) NEGATIVE G. VAGINALIS (test code = 74096) POSITIVE T. VAGINALIS (test code = 47651) NEGATIVE VAGINAL PATHOGENS DNA [id number] 00:00:00 Test Item Value Reference Range Interpretation Comments ANDIE SPECIES (test code = 45936) NEGATIVE G. VAGINALIS (test code = 24454) POSITIVE T. VAGINALIS (test code = 38448) NEGATIVE VAGINAL PATHOGENS DNA [id number] 00:00:00 Test Item Value Reference Range Interpretation Comments ANDIE SPECIES (test code = 51523) NEGATIVE G. VAGINALIS (test code = 61085) POSITIVE T. VAGINALIS (test code = 66629) NEGATIVE VAGINAL PATHOGENS DNA [id number] 00:00:00 Test Item Value Reference Range Interpretation Comments ANDIE SPECIES (test code = 62141) NEGATIVE G. VAGINALIS (test code = 63027) POSITIVE T. VAGINALIS (test code = 20001) NEGATIVE VAGINAL PATHOGENS DNA [id number] 00:00:00 Test Item Value Reference Range Interpretation Comments ANDIE SPECIES (test code = 96883) NEGATIVE G. VAGINALIS (test code = 77775) POSITIVE T. VAGINALIS (test code = 64038) NEGATIVE VAGINAL PATHOGENS DNA [id number] 00:00:00 Test Item Value Reference Range Interpretation Comments ANDIE SPECIES (test code = 01178) NEGATIVE G. VAGINALIS (test code = 57299) POSITIVE T. VAGINALIS (test code = 05385) NEGATIVE VAGINAL PATHOGENS DNA [id number] 00:00:00 Test Item Value Reference Range Interpretation Comments ANDIE SPECIES (test code = 17160) NEGATIVE G. VAGINALIS (test code = 72534) POSITIVE T. VAGINALIS (test code = 31640) NEGATIVE VAGINAL PATHOGENS DNA [id number] 00:00:00 Test Item Value Reference Range Interpretation Comments ANDIE SPECIES (test code = 07177) NEGATIVE G. VAGINALIS (test code = 51550) POSITIVE T. VAGINALIS (test code = 41014) NEGATIVE VAGINAL PATHOGENS DNA [id number] 00:00:00 Test Item Value Reference Range Interpretation Comments ANDIE SPECIES (test code = ) NEGATIVE G. VAGINALIS (test code = 00616) POSITIVE T. VAGINALIS (test code = 94601) NEGATIVE VAGINAL PATHOGENS DNA [id number] 00:00:00 Test Item Value Reference Range Interpretation Comments ANDIE SPECIES (test code = 86079) NEGATIVE G. VAGINALIS (test code = 15548) POSITIVE T. VAGINALIS (test code = 56136) NEGATIVE VAGINAL PATHOGENS DNA [id number] 00:00:00 Test Item Value Reference Range Interpretation Comments ANDIE SPECIES (test code = ) NEGATIVE G. VAGINALIS (test code = 27636) POSITIVE T. VAGINALIS (test code = 46316) NEGATIVE COMPREHENSIVE METABOLIC [id number] 00:00:00 Test Item Value Reference Range Interpretation Comments GLUCOSE (test code = 2217) 353 MG/DL BUN (test code = 2208) 27 MG/DL CREATININE (test code = 2214) 0.90 MG/DL eGFR AMER. (test code 92 ML/MIN/1.73 = 03126) eGFR NON- AMER. (test 79 ML/MIN/1.73 code = 86752) CALC BUN/CREAT (test code = 30 RATIO [...] code = 2219) 18 U/L COMPREHENSIVE METABOLIC [id number] 00:00:00 Test Item Value Reference Range Interpretation Comments GLUCOSE (test code = 2217) 353 MG/DL BUN (test code = 2208) 27 MG/DL CREATININE (test code = 2214) 0.90 MG/DL eGFR AMER. (test code 92 ML/MIN/1.73 = 98357) eGFR NON- AMER. (test 79 ML/MIN/1.73 code = 64998) CALC BUN/CREAT (test code = 30 RATIO [...] (test code = 2219) 18 U/L LIPID [id number] 00:00:00 Test Item Value Reference Range Interpretation Comments CHOLESTEROL (test code = 2210) 412 MG/DL TRIGLYCERIDES (test code = 2232) 2520 MG/DL HDL CHOLESTEROL (test code = 16 MG/DL 2220) CALC LDL CHOL (test code = 2237) NOTE MG/DL RISK RATIO LDL/HDL (test code = (NOTE) RATIO 2238) LIPID [id number] 00:00:00 Test Item Value Reference Range Interpretation Comments CHOLESTEROL (test code = 2210) 412 MG/DL TRIGLYCERIDES (test code = 2232) 2520 MG/DL HDL CHOLESTEROL (test code = 16 MG/DL 2220) CALC LDL CHOL (test code = 2237) NOTE MG/DL RISK RATIO LDL/HDL (test code = (NOTE) RATIO 2238) HEMOGLOBIN [id number] 00:00:00 Test Item Value Reference Range Interpretation Comments HEMOGLOBIN A1c (test code = 63766) 10.7 % HEMOGLOBIN [id number] 00:00:00 Test Item Value Reference Range Interpretation Comments HEMOGLOBIN A1c (test code = 20930) 10.7 % HEMOGLOBIN [id number] 00:00:00 Test Item Value Reference Range Interpretation Comments HEMOGLOBIN A1c (test code = 60638) 10.7 % [id number] 00:00:00 Test Item Value Reference Range Interpretation Comments TSH, THIRD GENERATION (test code 0.777 UIU/ML = 2821) [id number] 00:00:00 Test Item Value Reference Range Interpretation Comments TSH, THIRD GENERATION (test code 0.777 UIU/ML = 2821) [id number] 00:00:00 Test Item Value Reference Range Interpretation Comments TSH, THIRD GENERATION (test code 0.777 UIU/ML = 2821) MICROALBUMIN/CREATININE, RANDOM AND [id number] 00:00:00 Test Item Value Reference Range Interpretation Comments CREATININE, URINE, CONC. (test 127.3 MG/DL code = 2072) ALBUMIN, URINE, RANDOM (test code 65.2 MG/DL = 11906) CALC ALBUMIN/CREAT, RND (test 512 MG/G code = 72066) MICROALBUMIN/CREATININE, RANDOM AND [id number] 00:00:00 Test Item Value Reference Range Interpretation Comments CREATININE, URINE, CONC. (test 127.3 MG/DL code = 2072) ALBUMIN, URINE, RANDOM (test code 65.2 MG/DL = 64188) CALC ALBUMIN/CREAT, RND (test 512 MG/G code = 18085) COMPREHENSIVE METABOLIC [id number] 00:00:00 Test Item Value Reference Range Interpretation Comments GLUCOSE (test code = 2217) 353 MG/DL BUN (test code = 2208) 27 MG/DL CREATININE (test code = 2214) 0.90 MG/DL eGFR AMER. (test code 92 ML/MIN/1.73 = 49822) eGFR NON- AMER. (test 79 ML/MIN/1.73 code = 57016) CALC BUN/CREAT (test code = 30 RATIO [...] code = 2219) 18 U/L COMPREHENSIVE METABOLIC [id number] 00:00:00 Test Item Value Reference Range Interpretation Comments GLUCOSE (test code = 2217) 353 MG/DL BUN (test code = 2208) 27 MG/DL CREATININE (test code = 2214) 0.90 MG/DL eGFR AMER. (test code 92 ML/MIN/1.73 = 76728) eGFR NON- AMER. (test 79 ML/MIN/1.73 code = 42859) CALC BUN/CREAT (test code = 30 RATIO [...] (test code = 2219) 18 U/L LIPID [id number] 00:00:00 Test Item Value Reference Range Interpretation Comments CHOLESTEROL (test code = 2210) 412 MG/DL TRIGLYCERIDES (test code = 2232) 2520 MG/DL HDL CHOLESTEROL (test code = 16 MG/DL 2220) CALC LDL CHOL (test code = 2237) NOTE MG/DL RISK RATIO LDL/HDL (test code = (NOTE) RATIO 2238) LIPID [id number] 00:00:00 Test Item Value Reference Range Interpretation Comments CHOLESTEROL (test code = 2210) 412 MG/DL TRIGLYCERIDES (test code = 2232) 2520 MG/DL HDL CHOLESTEROL (test code = 16 MG/DL 2220) CALC LDL CHOL (test code = 2237) NOTE MG/DL RISK RATIO LDL/HDL (test code = (NOTE) RATIO 2238) HEMOGLOBIN [id number] 00:00:00 Test Item Value Reference Range Interpretation Comments HEMOGLOBIN A1c (test code = 73234) 10.7 % HEMOGLOBIN [id number] 00:00:00 Test Item Value Reference Range Interpretation Comments HEMOGLOBIN A1c (test code = 99991) 10.7 % HEMOGLOBIN [id number] 00:00:00 Test Item Value Reference Range Interpretation Comments HEMOGLOBIN A1c (test code = 80189) 10.7 % [id number] 00:00:00 Test Item Value Reference Range Interpretation Comments TSH, THIRD GENERATION (test code 0.777 UIU/ML = 2821) [id number] 00:00:00 Test Item Value Reference Range Interpretation Comments TSH, THIRD GENERATION (test code 0.777 UIU/ML = 2821) [id number] 00:00:00 Test Item Value Reference Range Interpretation Comments TSH, THIRD GENERATION (test code 0.777 UIU/ML = 2821) MICROALBUMIN/CREATININE, RANDOM AND [id number] 00:00:00 Test Item Value Reference Range Interpretation Comments CREATININE, URINE, CONC. (test 127.3 MG/DL code = 2072) ALBUMIN, URINE, RANDOM (test code 65.2 MG/DL = 97365) CALC ALBUMIN/CREAT, RND (test 512 MG/G code = 75543) MICROALBUMIN/CREATININE, RANDOM AND [id number] 00:00:00 Test Item Value Reference Range Interpretation Comments CREATININE, URINE, CONC. (test 127.3 MG/DL code = 2072) ALBUMIN, URINE, RANDOM (test code 65.2 MG/DL = 50399) CALC ALBUMIN/CREAT, RND (test 512 MG/G code = 16810) COMPREHENSIVE METABOLIC [id number] 00:00:00 Test Item Value Reference Range Interpretation Comments GLUCOSE (test code = 2217) 353 MG/DL BUN (test code = 2208) 27 MG/DL CREATININE (test code = 2214) 0.90 MG/DL eGFR AMER. (test code 92 ML/MIN/1.73 = 80227) eGFR NON- AMER. (test 79 ML/MIN/1.73 code = 56235) CALC BUN/CREAT (test code = 30 RATIO [...] code = 2219) 18 U/L COMPREHENSIVE METABOLIC [id number] 00:00:00 Test Item Value Reference Range Interpretation Comments GLUCOSE (test code = 2217) 353 MG/DL BUN (test code = 2208) 27 MG/DL CREATININE (test code = 2214) 0.90 MG/DL eGFR AMER. (test code 92 ML/MIN/1.73 = 73707) eGFR NON- AMER. (test 79 ML/MIN/1.73 code = 55625) CALC BUN/CREAT (test code = 30 RATIO [...] (test code = 2219) 18 U/L LIPID [id number] 00:00:00 Test Item Value Reference Range Interpretation Comments CHOLESTEROL (test code = 2210) 412 MG/DL TRIGLYCERIDES (test code = 2232) 2520 MG/DL HDL CHOLESTEROL (test code = 16 MG/DL 2220) CALC LDL CHOL (test code = 2237) NOTE MG/DL RISK RATIO LDL/HDL (test code = (NOTE) RATIO 2238) LIPID [id number] 00:00:00 Test Item Value Reference Range Interpretation Comments CHOLESTEROL (test code = 2210) 412 MG/DL TRIGLYCERIDES (test code = 2232) 2520 MG/DL HDL CHOLESTEROL (test code = 16 MG/DL 2220) CALC LDL CHOL (test code = 2237) NOTE MG/DL RISK RATIO LDL/HDL (test code = (NOTE) RATIO 2238) HEMOGLOBIN [id number] 00:00:00 Test Item Value Reference Range Interpretation Comments HEMOGLOBIN A1c (test code = 01186) 10.7 % HEMOGLOBIN [id number] 00:00:00 Test Item Value Reference Range Interpretation Comments HEMOGLOBIN A1c (test code = 23156) 10.7 % HEMOGLOBIN [id number] 00:00:00 Test Item Value Reference Range Interpretation Comments HEMOGLOBIN A1c (test code = 32808) 10.7 % [id number] 00:00:00 Test Item Value Reference Range Interpretation Comments TSH, THIRD GENERATION (test code 0.777 UIU/ML = 2821) [id number] 00:00:00 Test Item Value Reference Range Interpretation Comments TSH, THIRD GENERATION (test code 0.777 UIU/ML = 2821) [id number] 00:00:00 Test Item Value Reference Range Interpretation Comments TSH, THIRD GENERATION (test code 0.777 UIU/ML = 2821) MICROALBUMIN/CREATININE, RANDOM AND [id number] 00:00:00 Test Item Value Reference Range Interpretation Comments CREATININE, URINE, CONC. (test 127.3 MG/DL code = 2072) ALBUMIN, URINE, RANDOM (test code 65.2 MG/DL = 72897) CALC ALBUMIN/CREAT, RND (test 512 MG/G code = 96282) MICROALBUMIN/CREATININE, RANDOM AND [id number] 00:00:00 Test Item Value Reference Range Interpretation Comments CREATININE, URINE, CONC. (test 127.3 MG/DL code = 2072) ALBUMIN, URINE, RANDOM (test code 65.2 MG/DL = 16955) CALC ALBUMIN/CREAT, RND (test 512 MG/G code = 84810) COMPREHENSIVE METABOLIC [id number] 00:00:00 Test Item Value Reference Range Interpretation Comments GLUCOSE (test code = 2217) 353 MG/DL BUN (test code = 2208) 27 MG/DL CREATININE (test code = 2214) 0.90 MG/DL eGFR AMER. (test code 92 ML/MIN/1.73 = 39096) eGFR NON- AMER. (test 79 ML/MIN/1.73 code = 74482) CALC BUN/CREAT (test code = 30 RATIO [...] code = 2219) 18 U/L COMPREHENSIVE METABOLIC [id number] 00:00:00 Test Item Value Reference Range Interpretation Comments GLUCOSE (test code = 2217) 353 MG/DL BUN (test code = 2208) 27 MG/DL CREATININE (test code = 2214) 0.90 MG/DL eGFR AMER. (test code 92 ML/MIN/1.73 = 20605) eGFR NON- AMER. (test 79 ML/MIN/1.73 code = 77833) CALC BUN/CREAT (test code = 30 RATIO [...] (test code = 2219) 18 U/L LIPID [id number] 00:00:00 Test Item Value Reference Range Interpretation Comments CHOLESTEROL (test code = 2210) 412 MG/DL TRIGLYCERIDES (test code = 2232) 2520 MG/DL HDL CHOLESTEROL (test code = 16 MG/DL 2220) CALC LDL CHOL (test code = 2237) NOTE MG/DL RISK RATIO LDL/HDL (test code = (NOTE) RATIO 2238) LIPID [id number] 00:00:00 Test Item Value Reference Range Interpretation Comments CHOLESTEROL (test code = 2210) 412 MG/DL TRIGLYCERIDES (test code = 2232) 2520 MG/DL HDL CHOLESTEROL (test code = 16 MG/DL 2220) CALC LDL CHOL (test code = 2237) NOTE MG/DL RISK RATIO LDL/HDL (test code = (NOTE) RATIO 2238) HEMOGLOBIN [id number] 00:00:00 Test Item Value Reference Range Interpretation Comments HEMOGLOBIN A1c (test code = 97864) 10.7 % HEMOGLOBIN [id number] 00:00:00 Test Item Value Reference Range Interpretation Comments HEMOGLOBIN A1c (test code = 87644) 10.7 % HEMOGLOBIN [id number] 00:00:00 Test Item Value Reference Range Interpretation Comments HEMOGLOBIN A1c (test code = 67945) 10.7 % [id number] 00:00:00 Test Item Value Reference Range Interpretation Comments TSH, THIRD GENERATION (test code 0.777 UIU/ML = 2821) [id number] 00:00:00 Test Item Value Reference Range Interpretation Comments TSH, THIRD GENERATION (test code 0.777 UIU/ML = 2821) [id number] 00:00:00 Test Item Value Reference Range Interpretation Comments TSH, THIRD GENERATION (test code 0.777 UIU/ML = 2821) MICROALBUMIN/CREATININE, RANDOM AND [id number] 00:00:00 Test Item Value Reference Range Interpretation Comments CREATININE, URINE, CONC. (test 127.3 MG/DL code = 2072) ALBUMIN, URINE, RANDOM (test code 65.2 MG/DL = 11492) CALC ALBUMIN/CREAT, RND (test 512 MG/G code = 13818) MICROALBUMIN/CREATININE, RANDOM AND [id number] 00:00:00 Test Item Value Reference Range Interpretation Comments CREATININE, URINE, CONC. (test 127.3 MG/DL code = 2072) ALBUMIN, URINE, RANDOM (test code 65.2 MG/DL = 99361) CALC ALBUMIN/CREAT, RND (test 512 MG/G code = 10149) COMPREHENSIVE METABOLIC [id number] 00:00:00 Test Item Value Reference Range Interpretation Comments GLUCOSE (test code = 2217) 353 MG/DL BUN (test code = 2208) 27 MG/DL CREATININE (test code = 2214) 0.90 MG/DL eGFR AMER. (test code 92 ML/MIN/1.73 = 65486) eGFR NON- AMER. (test 79 ML/MIN/1.73 code = 58966) CALC BUN/CREAT (test code = 30 RATIO [...] code = 2219) 18 U/L COMPREHENSIVE METABOLIC [id number] 00:00:00 Test Item Value Reference Range Interpretation Comments GLUCOSE (test code = 2217) 353 MG/DL BUN (test code = 2208) 27 MG/DL CREATININE (test code = 2214) 0.90 MG/DL eGFR AMER. (test code 92 ML/MIN/1.73 = 82872) eGFR NON- AMER. (test 79 ML/MIN/1.73 code = 10098) CALC BUN/CREAT (test code = 30 RATIO [...] (test code = 2219) 18 U/L LIPID [id number] 00:00:00 Test Item Value Reference Range Interpretation Comments CHOLESTEROL (test code = 2210) 412 MG/DL TRIGLYCERIDES (test code = 2232) 2520 MG/DL HDL CHOLESTEROL (test code = 16 MG/DL 2220) CALC LDL CHOL (test code = 2237) NOTE MG/DL RISK RATIO LDL/HDL (test code = (NOTE) RATIO 2238) LIPID [id number] 00:00:00 Test Item Value Reference Range Interpretation Comments CHOLESTEROL (test code = 2210) 412 MG/DL TRIGLYCERIDES (test code = 2232) 2520 MG/DL HDL CHOLESTEROL (test code = 16 MG/DL 2220) CALC LDL CHOL (test code = 2237) NOTE MG/DL RISK RATIO LDL/HDL (test code = (NOTE) RATIO 2238) HEMOGLOBIN [id number] 00:00:00 Test Item Value Reference Range Interpretation Comments HEMOGLOBIN A1c (test code = 12166) 10.7 % HEMOGLOBIN [id number] 00:00:00 Test Item Value Reference Range Interpretation Comments HEMOGLOBIN A1c (test code = 19117) 10.7 % HEMOGLOBIN [id number] 00:00:00 Test Item Value Reference Range Interpretation Comments HEMOGLOBIN A1c (test code = 71994) 10.7 % [id number] 00:00:00 Test Item Value Reference Range Interpretation Comments TSH, THIRD GENERATION (test code 0.777 UIU/ML = 2821) [id number] 00:00:00 Test Item Value Reference Range Interpretation Comments TSH, THIRD GENERATION (test code 0.777 UIU/ML = 2821) [id number] 00:00:00 Test Item Value Reference Range Interpretation Comments TSH, THIRD GENERATION (test code 0.777 UIU/ML = 2821) MICROALBUMIN/CREATININE, RANDOM AND [id number] 00:00:00 Test Item Value Reference Range Interpretation Comments CREATININE, URINE, CONC. (test 127.3 MG/DL code = 2072) ALBUMIN, URINE, RANDOM (test code 65.2 MG/DL = 15680) CALC ALBUMIN/CREAT, RND (test 512 MG/G code = 74292) MICROALBUMIN/CREATININE, RANDOM AND [id number] 00:00:00 Test Item Value Reference Range Interpretation Comments CREATININE, URINE, CONC. (test 127.3 MG/DL code = 2072) ALBUMIN, URINE, RANDOM (test code 65.2 MG/DL = 03011) CALC ALBUMIN/CREAT, RND (test 512 MG/G code = 31762) COMPREHENSIVE METABOLIC [id number] 00:00:00 Test Item Value Reference Range Interpretation Comments GLUCOSE (test code = 2217) 353 MG/DL BUN (test code = 2208) 27 MG/DL CREATININE (test code = 2214) 0.90 MG/DL eGFR AMER. (test code 92 ML/MIN/1.73 = 39256) eGFR NON- AMER. (test 79 ML/MIN/1.73 code = 36656) CALC BUN/CREAT (test code = 30 RATIO [...] code = 2219) 18 U/L COMPREHENSIVE METABOLIC [id number] 00:00:00 Test Item Value Reference Range Interpretation Comments GLUCOSE (test code = 2217) 353 MG/DL BUN (test code = 2208) 27 MG/DL CREATININE (test code = 2214) 0.90 MG/DL eGFR AMER. (test code 92 ML/MIN/1.73 = 72833) eGFR NON- AMER. (test 79 ML/MIN/1.73 code = 29570) CALC BUN/CREAT (test code = 30 RATIO [...] (test code = 2219) 18 U/L LIPID [id number] 00:00:00 Test Item Value Reference Range Interpretation Comments CHOLESTEROL (test code = 2210) 412 MG/DL TRIGLYCERIDES (test code = 2232) 2520 MG/DL HDL CHOLESTEROL (test code = 16 MG/DL 2220) CALC LDL CHOL (test code = 2237) NOTE MG/DL RISK RATIO LDL/HDL (test code = (NOTE) RATIO 2238) LIPID [id number] 00:00:00 Test Item Value Reference Range Interpretation Comments CHOLESTEROL (test code = 2210) 412 MG/DL TRIGLYCERIDES (test code = 2232) 2520 MG/DL HDL CHOLESTEROL (test code = 16 MG/DL 2220) CALC LDL CHOL (test code = 2237) NOTE MG/DL RISK RATIO LDL/HDL (test code = (NOTE) RATIO 2238) HEMOGLOBIN [id number] 00:00:00 Test Item Value Reference Range Interpretation Comments HEMOGLOBIN A1c (test code = 23753) 10.7 % HEMOGLOBIN [id number] 00:00:00 Test Item Value Reference Range Interpretation Comments HEMOGLOBIN A1c (test code = 41181) 10.7 % HEMOGLOBIN [id number] 00:00:00 Test Item Value Reference Range Interpretation Comments HEMOGLOBIN A1c (test code = 14096) 10.7 % [id number] 00:00:00 Test Item Value Reference Range Interpretation Comments TSH, THIRD GENERATION (test code 0.777 UIU/ML = 2821) [id number] 00:00:00 Test Item Value Reference Range Interpretation Comments TSH, THIRD GENERATION (test code 0.777 UIU/ML = 2821) [id number] 00:00:00 Test Item Value Reference Range Interpretation Comments TSH, THIRD GENERATION (test code 0.777 UIU/ML = 2821) MICROALBUMIN/CREATININE, RANDOM AND [id number] 00:00:00 Test Item Value Reference Range Interpretation Comments CREATININE, URINE, CONC. (test 127.3 MG/DL code = 2072) ALBUMIN, URINE, RANDOM (test code 65.2 MG/DL = 93118) CALC ALBUMIN/CREAT, RND (test 512 MG/G code = 13653) MICROALBUMIN/CREATININE, RANDOM AND [id number] 00:00:00 Test Item Value Reference Range Interpretation Comments CREATININE, URINE, CONC. (test 127.3 MG/DL code = 2072) ALBUMIN, URINE, RANDOM (test code 65.2 MG/DL = 01671) CALC ALBUMIN/CREAT, RND (test 512 MG/G code = 46298) COMPREHENSIVE METABOLIC [id number] 00:00:00 Test Item Value Reference Range Interpretation Comments GLUCOSE (test code = 2217) 353 MG/DL BUN (test code = 2208) 27 MG/DL CREATININE (test code = 2214) 0.90 MG/DL eGFR AMER. (test code 92 ML/MIN/1.73 = 35464) eGFR NON- AMER. (test 79 ML/MIN/1.73 code = 42526) CALC BUN/CREAT (test code = 30 RATIO [...] code = 2219) 18 U/L COMPREHENSIVE METABOLIC [id number] 00:00:00 Test Item Value Reference Range Interpretation Comments GLUCOSE (test code = 2217) 353 MG/DL BUN (test code = 2208) 27 MG/DL CREATININE (test code = 2214) 0.90 MG/DL eGFR AMER. (test code 92 ML/MIN/1.73 = 24824) eGFR NON- AMER. (test 79 ML/MIN/1.73 code = 15474) CALC BUN/CREAT (test code = 30 RATIO [...] (test code = 2219) 18 U/L LIPID [id number] 00:00:00 Test Item Value Reference Range Interpretation Comments CHOLESTEROL (test code = 2210) 412 MG/DL TRIGLYCERIDES (test code = 2232) 2520 MG/DL HDL CHOLESTEROL (test code = 16 MG/DL 2220) CALC LDL CHOL (test code = 2237) NOTE MG/DL RISK RATIO LDL/HDL (test code = (NOTE) RATIO 2238) LIPID [id number] 00:00:00 Test Item Value Reference Range Interpretation Comments CHOLESTEROL (test code = 2210) 412 MG/DL TRIGLYCERIDES (test code = 2232) 2520 MG/DL HDL CHOLESTEROL (test code = 16 MG/DL 2220) CALC LDL CHOL (test code = 2237) NOTE MG/DL RISK RATIO LDL/HDL (test code = (NOTE) RATIO 2238) HEMOGLOBIN [id number] 00:00:00 Test Item Value Reference Range Interpretation Comments HEMOGLOBIN A1c (test code = 64948) 10.7 % HEMOGLOBIN [id number] 00:00:00 Test Item Value Reference Range Interpretation Comments HEMOGLOBIN A1c (test code = 14039) 10.7 % COMPREHENSIVE METABOLIC [id number] 00:00:00 Test Item Value Reference Range Interpretation Comments GLUCOSE (test code = 2217) 353 MG/DL BUN (test code = 2208) 27 MG/DL CREATININE (test code = 2214) 0.90 MG/DL eGFR AMER. (test code 92 ML/MIN/1.73 = 98543) eGFR NON- AMER. (test 79 ML/MIN/1.73 code = 87766) CALC BUN/CREAT (test code = 30 RATIO [...] (test code = 2219) 18 U/L HEMOGLOBIN [id number] 00:00:00 Test Item Value Reference Range Interpretation Comments HEMOGLOBIN A1c (test code = 38123) 10.7 % [id number] 00:00:00 Test Item Value Reference Range Interpretation Comments TSH, THIRD GENERATION (test code 0.777 UIU/ML = 2821) [id number] 00:00:00 Test Item Value Reference Range Interpretation Comments TSH, THIRD GENERATION (test code 0.777 UIU/ML = 2821) [id number] 00:00:00 Test Item Value Reference Range Interpretation Comments TSH, THIRD GENERATION (test code 0.777 UIU/ML = 2821) MICROALBUMIN/CREATININE, RANDOM AND [id number] 00:00:00 Test Item Value Reference Range Interpretation Comments CREATININE, URINE, CONC. (test 127.3 MG/DL code = 2072) ALBUMIN, URINE, RANDOM (test code 65.2 MG/DL = 23492) CALC ALBUMIN/CREAT, RND (test 512 MG/G code = 00147) MICROALBUMIN/CREATININE, RANDOM AND [id number] 00:00:00 Test Item Value Reference Range Interpretation Comments CREATININE, URINE, CONC. (test 127.3 MG/DL code = 2072) ALBUMIN, URINE, RANDOM (test code 65.2 MG/DL = 05088) CALC ALBUMIN/CREAT, RND (test 512 MG/G code = 09045) LIPID [id number] 00:00:00 Test Item Value Reference Range Interpretation Comments CHOLESTEROL (test code = 2210) 412 MG/DL TRIGLYCERIDES (test code = 2232) 2520 MG/DL HDL CHOLESTEROL (test code = 16 MG/DL 0) CALC LDL CHOL (test code = 2237) NOTE MG/DL RISK RATIO LDL/HDL (test code = (NOTE) RATIO 2238) HEMOGLOBIN [id number] 00:00:00 Test Item Value Reference Range Interpretation Comments HEMOGLOBIN A1c (test code = 74318) 10.7 % HEMOGLOBIN [id number] 00:00:00 Test Item Value Reference Range Interpretation Comments HEMOGLOBIN A1c (test code = 58698) 10.7 % COMPREHENSIVE METABOLIC [id number] 00:00:00 Test Item Value Reference Range Interpretation Comments GLUCOSE (test code = 2217) 353 MG/DL BUN (test code = 2208) 27 MG/DL CREATININE (test code = 2214) 0.90 MG/DL eGFR AMER. (test code 92 ML/MIN/1.73 = 16803) eGFR NON- AMER. (test 79 ML/MIN/1.73 code = 37164) CALC BUN/CREAT (test code = 30 RATIO [...] code = 2219) 18 U/L COMPREHENSIVE METABOLIC [id number] 00:00:00 Test Item Value Reference Range Interpretation Comments GLUCOSE (test code = 2217) 353 MG/DL BUN (test code = 2208) 27 MG/DL CREATININE (test code = 2214) 0.90 MG/DL eGFR AMER. (test code 92 ML/MIN/1.73 = 83060) eGFR NON- AMER. (test 79 ML/MIN/1.73 code = 16407) CALC BUN/CREAT (test code = 30 RATIO [...] ALT (test code = 2219) 18 U/L [id number] 00:00:00 Test Item Value Reference Range Interpretation Comments TSH, THIRD GENERATION (test code 0.777 UIU/ML = 2821) LIPID [id number] 00:00:00 Test Item Value Reference Range Interpretation Comments CHOLESTEROL (test code = 2210) 412 MG/DL TRIGLYCERIDES (test code = 2232) 2520 MG/DL HDL CHOLESTEROL (test code = 16 MG/DL 2220) CALC LDL CHOL (test code = 2237) NOTE MG/DL RISK RATIO LDL/HDL (test code = (NOTE) RATIO 2238) [id number] 00:00:00 Test Item Value Reference Range Interpretation Comments TSH, THIRD GENERATION (test code 0.777 UIU/ML = 2821) LIPID [id number] 00:00:00 Test Item Value Reference Range Interpretation Comments CHOLESTEROL (test code = 2210) 412 MG/DL TRIGLYCERIDES (test code = 2232) 2520 MG/DL HDL CHOLESTEROL (test code = 16 MG/DL 2220) CALC LDL CHOL (test code = 2237) NOTE MG/DL RISK RATIO LDL/HDL (test code = (NOTE) RATIO 2238) HEMOGLOBIN [id number] 00:00:00 Test Item Value Reference Range Interpretation Comments HEMOGLOBIN A1c (test code = 63927) 10.7 % HEMOGLOBIN [id number] 00:00:00 Test Item Value Reference Range Interpretation Comments HEMOGLOBIN A1c (test code = 86850) 10.7 % HEMOGLOBIN [id number] 00:00:00 Test Item Value Reference Range Interpretation Comments HEMOGLOBIN A1c (test code = 33063) 10.7 % [id number] 00:00:00 Test Item Value Reference Range Interpretation Comments TSH, THIRD GENERATION (test code 0.777 UIU/ML = 2821) [id number] 00:00:00 Test Item Value Reference Range Interpretation Comments TSH, THIRD GENERATION (test code 0.777 UIU/ML = 2821) MICROALBUMIN/CREATININE, RANDOM AND [id number] 00:00:00 Test Item Value Reference Range Interpretation Comments CREATININE, URINE, CONC. (test 127.3 MG/DL code = 2072) ALBUMIN, URINE, RANDOM (test code 65.2 MG/DL = 05426) CALC ALBUMIN/CREAT, RND (test 512 MG/G code = 83452) [id number] 00:00:00 Test Item Value Reference Range Interpretation Comments TSH, THIRD GENERATION (test code 0.777 UIU/ML = 2821) MICROALBUMIN/CREATININE, RANDOM AND [id number] 00:00:00 Test Item Value Reference Range Interpretation Comments CREATININE, URINE, CONC. (test 127.3 MG/DL code = 2072) ALBUMIN, URINE, RANDOM (test code 65.2 MG/DL = 55733) CALC ALBUMIN/CREAT, RND (test 512 MG/G code = 57645) MICROALBUMIN/CREATININE, RANDOM AND [id number] 00:00:00 Test Item Value Reference Range Interpretation Comments CREATININE, URINE, CONC. (test 127.3 MG/DL code = 2072) ALBUMIN, URINE, RANDOM (test code 65.2 MG/DL = 84479) CALC ALBUMIN/CREAT, RND (test 512 MG/G code = 57451) COMPREHENSIVE METABOLIC [id number] 00:00:00 Test Item Value Reference Range Interpretation Comments GLUCOSE (test code = 2217) 353 MG/DL BUN (test code = 2208) 27 MG/DL CREATININE (test code = 2214) 0.90 MG/DL eGFR AMER. (test code 92 ML/MIN/1.73 = 83727) eGFR NON- AMER. (test 79 ML/MIN/1.73 code = 04720) CALC BUN/CREAT (test code = 30 RATIO [...] code = 2219) 18 U/L COMPREHENSIVE METABOLIC [id number] 00:00:00 Test Item Value Reference Range Interpretation Comments GLUCOSE (test code = 2217) 353 MG/DL BUN (test code = 2208) 27 MG/DL CREATININE (test code = 2214) 0.90 MG/DL eGFR AMER. (test code 92 ML/MIN/1.73 = 37483) eGFR NON- AMER. (test 79 ML/MIN/1.73 code = 68002) CALC BUN/CREAT (test code = 30 RATIO [...] (test code = 2219) 18 U/L LIPID [id number] 00:00:00 Test Item Value Reference Range Interpretation Comments CHOLESTEROL (test code = 2210) 412 MG/DL TRIGLYCERIDES (test code = 2232) 2520 MG/DL HDL CHOLESTEROL (test code = 16 MG/DL 2220) CALC LDL CHOL (test code = 2237) NOTE MG/DL RISK RATIO LDL/HDL (test code = (NOTE) RATIO 2238) LIPID [id number] 00:00:00 Test Item Value Reference Range Interpretation Comments CHOLESTEROL (test code = 2210) 412 MG/DL TRIGLYCERIDES (test code = 2232) 2520 MG/DL HDL CHOLESTEROL (test code = 16 MG/DL 2220) CALC LDL CHOL (test code = 2237) NOTE MG/DL RISK RATIO LDL/HDL (test code = (NOTE) RATIO 2238) HEMOGLOBIN [id number] 00:00:00 Test Item Value Reference Range Interpretation Comments HEMOGLOBIN A1c (test code = 22204) 10.7 % HEMOGLOBIN [id number] 00:00:00 Test Item Value Reference Range Interpretation Comments HEMOGLOBIN A1c (test code = 24993) 10.7 % HEMOGLOBIN [id number] 00:00:00 Test Item Value Reference Range Interpretation Comments HEMOGLOBIN A1c (test code = 05827) 10.7 % [id number] 00:00:00 Test Item Value Reference Range Interpretation Comments TSH, THIRD GENERATION (test code 0.777 UIU/ML = 2821) [id number] 00:00:00 Test Item Value Reference Range Interpretation Comments TSH, THIRD GENERATION (test code 0.777 UIU/ML = 2821) [id number] 00:00:00 Test Item Value Reference Range Interpretation Comments TSH, THIRD GENERATION (test code 0.777 UIU/ML = 2821) MICROALBUMIN/CREATININE, RANDOM AND [id number] 00:00:00 Test Item Value Reference Range Interpretation Comments CREATININE, URINE, CONC. (test 127.3 MG/DL code = 2072) ALBUMIN, URINE, RANDOM (test code 65.2 MG/DL = 15374) CALC ALBUMIN/CREAT, RND (test 512 MG/G code = 87178) MICROALBUMIN/CREATININE, RANDOM AND [id number] 00:00:00 Test Item Value Reference Range Interpretation Comments CREATININE, URINE, CONC. (test 127.3 MG/DL code = 2072) ALBUMIN, URINE, RANDOM (test code 65.2 MG/DL = 81996) CALC ALBUMIN/CREAT, RND (test 512 MG/G code = 50255) COMPREHENSIVE METABOLIC [id number] 00:00:00 Test Item Value Reference Range Interpretation Comments GLUCOSE (test code = 2217) 353 MG/DL BUN (test code = 2208) 27 MG/DL CREATININE (test code = 2214) 0.90 MG/DL eGFR AMER. (test code 92 ML/MIN/1.73 = 04829) eGFR NON- AMER. (test 79 ML/MIN/1.73 code = 68768) CALC BUN/CREAT (test code = 30 RATIO [...] code = 2219) 18 U/L COMPREHENSIVE METABOLIC [id number] 00:00:00 Test Item Value Reference Range Interpretation Comments GLUCOSE (test code = 2217) 353 MG/DL BUN (test code = 2208) 27 MG/DL CREATININE (test code = 2214) 0.90 MG/DL eGFR AMER. (test code 92 ML/MIN/1.73 = 04794) eGFR NON- AMER. (test 79 ML/MIN/1.73 code = 85001) CALC BUN/CREAT (test code = 30 RATIO [...] (test code = 2219) 18 U/L LIPID [id number] 00:00:00 Test Item Value Reference Range Interpretation Comments CHOLESTEROL (test code = 2210) 412 MG/DL TRIGLYCERIDES (test code = 2232) 2520 MG/DL HDL CHOLESTEROL (test code = 16 MG/DL 2220) CALC LDL CHOL (test code = 2237) NOTE MG/DL RISK RATIO LDL/HDL (test code = (NOTE) RATIO 2238) LIPID [id number] 00:00:00 Test Item Value Reference Range Interpretation Comments CHOLESTEROL (test code = 2210) 412 MG/DL TRIGLYCERIDES (test code = 2232) 2520 MG/DL HDL CHOLESTEROL (test code = 16 MG/DL 2220) CALC LDL CHOL (test code = 2237) NOTE MG/DL RISK RATIO LDL/HDL (test code = (NOTE) RATIO 2238) HEMOGLOBIN [id number] 00:00:00 Test Item Value Reference Range Interpretation Comments HEMOGLOBIN A1c (test code = 27038) 10.7 % HEMOGLOBIN [id number] 00:00:00 Test Item Value Reference Range Interpretation Comments HEMOGLOBIN A1c (test code = 07976) 10.7 % HEMOGLOBIN [id number] 00:00:00 Test Item Value Reference Range Interpretation Comments HEMOGLOBIN A1c (test code = 78625) 10.7 % [id number] 00:00:00 Test Item Value Reference Range Interpretation Comments TSH, THIRD GENERATION (test code 0.777 UIU/ML = 2821) [id number] 00:00:00 Test Item Value Reference Range Interpretation Comments TSH, THIRD GENERATION (test code 0.777 UIU/ML = 2821) [id number] 00:00:00 Test Item Value Reference Range Interpretation Comments TSH, THIRD GENERATION (test code 0.777 UIU/ML = 2821) MICROALBUMIN/CREATININE, RANDOM AND [id number] 00:00:00 Test Item Value Reference Range Interpretation Comments CREATININE, URINE, CONC. (test 127.3 MG/DL code = 2072) ALBUMIN, URINE, RANDOM (test code 65.2 MG/DL = 46796) CALC ALBUMIN/CREAT, RND (test 512 MG/G code = 52416) MICROALBUMIN/CREATININE, RANDOM AND [id number] 00:00:00 Test Item Value Reference Range Interpretation Comments CREATININE, URINE, CONC. (test 127.3 MG/DL code = 2072) ALBUMIN, URINE, RANDOM (test code 65.2 MG/DL = 90650) CALC ALBUMIN/CREAT, RND (test 512 MG/G code = 47576) CULTURE, [id number] 00:00:00 Test Item Value Reference Range Interpretation Comments CULTURE, URINE (test SPECIMEN NUMBER: code = 45006) [id number] CULTURE, [id number] 00:00:00 Test Item Value Reference Range Interpretation Comments CULTURE, URINE (test SPECIMEN NUMBER: code = 45481) [id number] CULTURE, [id number] 00:00:00 Test Item Value Reference Range Interpretation Comments CULTURE, URINE (test SPECIMEN NUMBER: code = 50977) [id number] CULTURE, [id number] 00:00:00 Test Item Value Reference Range Interpretation Comments CULTURE, URINE (test SPECIMEN NUMBER: code = 29653) [id number] CULTURE, [id number] 00:00:00 Test Item Value Reference Range Interpretation Comments CULTURE, URINE (test SPECIMEN NUMBER: code = 72149) [id number] CULTURE, [id number] 00:00:00 Test Item Value Reference Range Interpretation Comments CULTURE, URINE (test SPECIMEN NUMBER: code = 63561) [id number] CULTURE, [id number] 00:00:00 Test Item Value Reference Range Interpretation Comments CULTURE, URINE (test SPECIMEN NUMBER: code = 49559) [id number] CULTURE, [id number] 00:00:00 Test Item Value Reference Range Interpretation Comments CULTURE, URINE (test SPECIMEN NUMBER: code = 87784) [id number] CULTURE, [id number] 00:00:00 Test Item Value Reference Range Interpretation Comments CULTURE, URINE (test SPECIMEN NUMBER: code = 76582) [id number] CULTURE, [id number] 00:00:00 Test Item Value Reference Range Interpretation Comments CULTURE, URINE (test SPECIMEN NUMBER: code = 41152) [id number] CULTURE, [id number] 00:00:00 Test Item Value Reference Range Interpretation Comments CULTURE, URINE (test SPECIMEN NUMBER: code = 42675) [id number] CULTURE, [id number] 00:00:00 Test Item Value Reference Range Interpretation Comments CULTURE, URINE (test SPECIMEN NUMBER: code = 34474) [id number] CULTURE, [id number] 00:00:00 Test Item Value Reference Range Interpretation Comments CULTURE, URINE (test SPECIMEN NUMBER: code = 58135) [id number] CULTURE, [id number] 00:00:00 Test Item Value Reference Range Interpretation Comments CULTURE, URINE (test SPECIMEN NUMBER: code = 72816) [id number] CULTURE, [id number] 00:00:00 Test Item Value Reference Range Interpretation Comments CULTURE, URINE (test SPECIMEN NUMBER: code = 27423) [id number] CULTURE, [id number] 00:00:00 Test Item Value Reference Range Interpretation Comments CULTURE, URINE (test SPECIMEN NUMBER: code = 81282) [id number] CULTURE, [id number] 00:00:00 Test Item Value Reference Range Interpretation Comments CULTURE, URINE (test SPECIMEN NUMBER: code = 43118) [id number] CULTURE, [id number] 00:00:00 Test Item Value Reference Range Interpretation Comments CULTURE, URINE (test SPECIMEN NUMBER: code = 00474) [id number] CULTURE, [id number] 00:00:00 Test Item Value Reference Range Interpretation Comments CULTURE, URINE (test SPECIMEN NUMBER: code = 22635) [id number] CULTURE, [id number] 00:00:00 Test Item Value Reference Range Interpretation Comments CULTURE, URINE (test SPECIMEN NUMBER: code = 94295) [id number] CULTURE, [id number] 00:00:00 Test Item Value Reference Range Interpretation Comments CULTURE, URINE (test SPECIMEN NUMBER: code = 25877) [id number] VAGINAL PATHOGENS DNA [id number] 00:00:00 Test Item Value Reference Range Interpretation Comments ANDIE SPECIES (test code = 26931) NEGATIVE G. VAGINALIS (test code = 15091) NEGATIVE T. VAGINALIS (test code = 64574) NEGATIVE VAGINAL PATHOGENS DNA [id number] 00:00:00 Test Item Value Reference Range Interpretation Comments ANDIE SPECIES (test code = 28059) NEGATIVE G. VAGINALIS (test code = 48927) NEGATIVE T. VAGINALIS (test code = 99126) NEGATIVE VAGINAL PATHOGENS DNA [id number] 00:00:00 Test Item Value Reference Range Interpretation Comments ANDIE SPECIES (test code = 98095) NEGATIVE G. VAGINALIS (test code = 04088) NEGATIVE T. VAGINALIS (test code = 47412) NEGATIVE VAGINAL PATHOGENS DNA [id number] 00:00:00 Test Item Value Reference Range Interpretation Comments ANDIE SPECIES (test code = 40881) NEGATIVE G. VAGINALIS (test code = 69280) NEGATIVE T. VAGINALIS (test code = 81624) NEGATIVE VAGINAL PATHOGENS DNA [id number] 00:00:00 Test Item Value Reference Range Interpretation Comments ANDIE SPECIES (test code = 11035) NEGATIVE G. VAGINALIS (test code = 17550) NEGATIVE T. VAGINALIS (test code = 45423) NEGATIVE VAGINAL PATHOGENS DNA [id number] 00:00:00 Test Item Value Reference Range Interpretation Comments ANDIE SPECIES (test code = 09467) NEGATIVE G. VAGINALIS (test code = 94193) NEGATIVE T. VAGINALIS (test code = 70854) NEGATIVE VAGINAL PATHOGENS DNA [id number] 00:00:00 Test Item Value Reference Range Interpretation Comments ANDIE SPECIES (test code = 44372) NEGATIVE G. VAGINALIS (test code = 17551) NEGATIVE T. VAGINALIS (test code = 26296) NEGATIVE VAGINAL PATHOGENS DNA [id number] 00:00:00 Test Item Value Reference Range Interpretation Comments ANDIE SPECIES (test code = 70195) NEGATIVE G. VAGINALIS (test code = 59376) NEGATIVE T. VAGINALIS (test code = 61915) NEGATIVE VAGINAL PATHOGENS DNA [id number] 00:00:00 Test Item Value Reference Range Interpretation Comments ANDIE SPECIES (test code = 96674) NEGATIVE G. VAGINALIS (test code = 52592) NEGATIVE T. VAGINALIS (test code = 82710) NEGATIVE VAGINAL PATHOGENS DNA [id number] 00:00:00 Test Item Value Reference Range Interpretation Comments ANDIE SPECIES (test code = 93485) NEGATIVE G. VAGINALIS (test code = 35089) NEGATIVE T. VAGINALIS (test code = 49227) NEGATIVE VAGINAL PATHOGENS DNA [id number] 00:00:00 Test Item Value Reference Range Interpretation Comments ANDIE SPECIES (test code = 10384) NEGATIVE G. VAGINALIS (test code = 77262) NEGATIVE T. VAGINALIS (test code = 18433) NEGATIVE VAGINAL PATHOGENS DNA [id number] 00:00:00 Test Item Value Reference Range Interpretation Comments ANDIE SPECIES (test code = 69892) NEGATIVE G. VAGINALIS (test code = 29595) NEGATIVE T. VAGINALIS (test code = 05010) NEGATIVE VAGINAL PATHOGENS DNA [id number] 00:00:00 Test Item Value Reference Range Interpretation Comments ANDIE SPECIES (test code = 51370) NEGATIVE G. VAGINALIS (test code = 05564) NEGATIVE T. VAGINALIS (test code = 20865) NEGATIVE VAGINAL PATHOGENS DNA [id number] 00:00:00 Test Item Value Reference Range Interpretation Comments ANDIE SPECIES (test code = 02464) NEGATIVE G. VAGINALIS (test code = 43543) NEGATIVE T. VAGINALIS (test code = 56585) NEGATIVE VAGINAL PATHOGENS DNA [id number] 00:00:00 Test Item Value Reference Range Interpretation Comments ANDIE SPECIES (test code = 14009) NEGATIVE G. VAGINALIS (test code = 30395) NEGATIVE T. VAGINALIS (test code = 36419) NEGATIVE VAGINAL PATHOGENS DNA [id number] 00:00:00 Test Item Value Reference Range Interpretation Comments ANDIE SPECIES (test code = 18975) NEGATIVE G. VAGINALIS (test code = 09053) NEGATIVE T. VAGINALIS (test code = 37442) NEGATIVE VAGINAL PATHOGENS DNA [id number] 00:00:00 Test Item Value Reference Range Interpretation Comments ANDIE SPECIES (test code = 70415) NEGATIVE G. VAGINALIS (test code = 04460) NEGATIVE T. VAGINALIS (test code = 88013) NEGATIVE VAGINAL PATHOGENS DNA [id number] 00:00:00 Test Item Value Reference Range Interpretation Comments ANDIE SPECIES (test code = 96152) NEGATIVE G. VAGINALIS (test code = 31326) NEGATIVE T. VAGINALIS (test code = 44533) NEGATIVE VAGINAL PATHOGENS DNA [id number] 00:00:00 Test Item Value Reference Range Interpretation Comments ANDIE SPECIES (test code = 29682) NEGATIVE G. VAGINALIS (test code = 80643) NEGATIVE T. VAGINALIS (test code = 35606) NEGATIVE VAGINAL PATHOGENS DNA [id number] 00:00:00 Test Item Value Reference Range Interpretation Comments ANDIE SPECIES (test code = 27837) NEGATIVE G. VAGINALIS (test code = 59862) NEGATIVE T. VAGINALIS (test code = 10736) NEGATIVE VAGINAL PATHOGENS DNA [id number] 00:00:00 Test Item Value Reference Range Interpretation Comments ANDIE SPECIES (test code = 77963) NEGATIVE G. VAGINALIS (test code = 52107) NEGATIVE T. VAGINALIS (test code = 26979) NEGATIVE COMPREHENSIVE METABOLIC PANEL [ADDED]2018-05-24 00:00:00 Test Item Value Reference Range Interpretation Comments GLUCOSE (test code = 2217) 198 MG/DL BUN (test code = 2208) 18 MG/DL CREATININE (test code = 2214) 0.86 MG/DL eGFR AMER. (test code 98 ML/MIN/1.73 = 27473) eGFR NON- AMER. (test 84 ML/MIN/1.73 code = 55717) CALC BUN/CREAT (test code = 21 RATIO [...] eGFR AMER. (test code 98 ML/MIN/1.73 = 94025) eGFR NON- AMER. (test 84 ML/MIN/1.73 code = 01297) CALC BUN/CREAT (test code = 21 RATIO [...] Interpretation Comments HEMOGLOBIN A1c (test code = 33766) 10.1 % HEMOGLOBIN A1c [ADDED]2018-05-24 00:00:00 Test Item Value Reference Range Interpretation Comments HEMOGLOBIN A1c (test code = 40618) 10.1 % HEMOGLOBIN A1c [ADDED]2018-05-24 00:00:00 Test Item Value Reference Range Interpretation Comments HEMOGLOBIN A1c (test code = 85182) 10.1 % COMPREHENSIVE METABOLIC PANEL [ADDED]2018-05-24 00:00:00 Test Item Value Reference Range Interpretation Comments GLUCOSE (test code = 2217) 198 MG/DL BUN (test code = 2208) 18 MG/DL CREATININE (test code = 2214) 0.86 MG/DL eGFR AMER. (test code 98 ML/MIN/1.73 = 04087) eGFR NON- AMER. (test 84 ML/MIN/1.73 code = 00409) CALC BUN/CREAT (test code = 21 RATIO [...] eGFR AMER. (test code 98 ML/MIN/1.73 = 23611) eGFR NON- AMER. (test 84 ML/MIN/1.73 code = 46417) CALC BUN/CREAT (test code = 21 RATIO [...] Interpretation Comments HEMOGLOBIN A1c (test code = 75330) 10.1 % HEMOGLOBIN A1c [ADDED]2018-05-24 00:00:00 Test Item Value Reference Range Interpretation Comments HEMOGLOBIN A1c (test code = 35290) 10.1 % HEMOGLOBIN A1c [ADDED]2018-05-24 00:00:00 Test Item Value Reference Range Interpretation Comments HEMOGLOBIN A1c (test code = 73226) 10.1 % COMPREHENSIVE METABOLIC PANEL [ADDED]2018-05-24 00:00:00 Test Item Value Reference Range Interpretation Comments GLUCOSE (test code = 2217) 198 MG/DL BUN (test code = 2208) 18 MG/DL CREATININE (test code = 2214) 0.86 MG/DL eGFR AMER. (test code 98 ML/MIN/1.73 = 94535) eGFR NON- AMER. (test 84 ML/MIN/1.73 code = 23535) CALC BUN/CREAT (test code = 21 RATIO [...] eGFR AMER. (test code 98 ML/MIN/1.73 = 23910) eGFR NON- AMER. (test 84 ML/MIN/1.73 code = 19507) CALC BUN/CREAT (test code = 21 RATIO [...] Interpretation Comments HEMOGLOBIN A1c (test code = 38272) 10.1 % HEMOGLOBIN A1c [ADDED]2018-05-24 00:00:00 Test Item Value Reference Range Interpretation Comments HEMOGLOBIN A1c (test code = 59997) 10.1 % HEMOGLOBIN A1c [ADDED]2018-05-24 00:00:00 Test Item Value Reference Range Interpretation Comments HEMOGLOBIN A1c (test code = 93702) 10.1 % COMPREHENSIVE METABOLIC PANEL [ADDED]2018-05-24 00:00:00 Test Item Value Reference Range Interpretation Comments GLUCOSE (test code = 2217) 198 MG/DL BUN (test code = 2208) 18 MG/DL CREATININE (test code = 2214) 0.86 MG/DL eGFR AMER. (test code 98 ML/MIN/1.73 = 61917) eGFR NON- AMER. (test 84 ML/MIN/1.73 code = 37216) CALC BUN/CREAT (test code = 21 RATIO [...] eGFR AMER. (test code 98 ML/MIN/1.73 = 34952) eGFR NON- AMER. (test 84 ML/MIN/1.73 code = 37354) CALC BUN/CREAT (test code = 21 RATIO [...] Interpretation Comments HEMOGLOBIN A1c (test code = 93804) 10.1 % HEMOGLOBIN A1c [ADDED]2018-05-24 00:00:00 Test Item Value Reference Range Interpretation Comments HEMOGLOBIN A1c (test code = 79181) 10.1 % HEMOGLOBIN A1c [ADDED]2018-05-24 00:00:00 Test Item Value Reference Range Interpretation Comments HEMOGLOBIN A1c (test code = 19079) 10.1 % COMPREHENSIVE METABOLIC PANEL [ADDED]2018-05-24 00:00:00 Test Item Value Reference Range Interpretation Comments GLUCOSE (test code = 2217) 198 MG/DL BUN (test code = 2208) 18 MG/DL CREATININE (test code = 2214) 0.86 MG/DL eGFR AMER. (test code 98 ML/MIN/1.73 = 76303) eGFR NON- AMER. (test 84 ML/MIN/1.73 code = 77496) CALC BUN/CREAT (test code = 21 RATIO [...] eGFR AMER. (test code 98 ML/MIN/1.73 = 19665) eGFR NON- AMER. (test 84 ML/MIN/1.73 code = 21866) CALC BUN/CREAT (test code = 21 RATIO [...] Interpretation Comments HEMOGLOBIN A1c (test code = 57171) 10.1 % HEMOGLOBIN A1c [ADDED]2018-05-24 00:00:00 Test Item Value Reference Range Interpretation Comments HEMOGLOBIN A1c (test code = 93733) 10.1 % HEMOGLOBIN A1c [ADDED]2018-05-24 00:00:00 Test Item Value Reference Range Interpretation Comments HEMOGLOBIN A1c (test code = 50716) 10.1 % COMPREHENSIVE METABOLIC PANEL [ADDED]2018-05-24 00:00:00 Test Item Value Reference Range Interpretation Comments GLUCOSE (test code = 2217) 198 MG/DL BUN (test code = 2208) 18 MG/DL CREATININE (test code = 2214) 0.86 MG/DL eGFR AMER. (test code 98 ML/MIN/1.73 = 38636) eGFR NON- AMER. (test 84 ML/MIN/1.73 code = 71115) CALC BUN/CREAT (test code = 21 RATIO [...] eGFR AMER. (test code 98 ML/MIN/1.73 = 79187) eGFR NON- AMER. (test 84 ML/MIN/1.73 code = 51208) CALC BUN/CREAT (test code = 21 RATIO [...] Interpretation Comments HEMOGLOBIN A1c (test code = 40238) 10.1 % HEMOGLOBIN A1c [ADDED]2018-05-24 00:00:00 Test Item Value Reference Range Interpretation Comments HEMOGLOBIN A1c (test code = 19580) 10.1 % HEMOGLOBIN A1c [ADDED]2018-05-24 00:00:00 Test Item Value Reference Range Interpretation Comments HEMOGLOBIN A1c (test code = 96728) 10.1 % COMPREHENSIVE METABOLIC PANEL [ADDED]2018-05-24 00:00:00 Test Item Value Reference Range Interpretation Comments GLUCOSE (test code = 2217) 198 MG/DL BUN (test code = 2208) 18 MG/DL CREATININE (test code = 2214) 0.86 MG/DL eGFR AMER. (test code 98 ML/MIN/1.73 = 09435) eGFR NON- AMER. (test 84 ML/MIN/1.73 code = 62985) CALC BUN/CREAT (test code = 21 RATIO [...] eGFR AMER. (test code 98 ML/MIN/1.73 = 03151) eGFR NON- AMER. (test 84 ML/MIN/1.73 code = 06233) CALC BUN/CREAT (test code = 21 RATIO [...] Interpretation Comments HEMOGLOBIN A1c (test code = 70505) 10.1 % HEMOGLOBIN A1c [ADDED]2018-05-24 00:00:00 Test Item Value Reference Range Interpretation Comments HEMOGLOBIN A1c (test code = 55435) 10.1 % HEMOGLOBIN A1c [ADDED]2018-05-24 00:00:00 Test Item Value Reference Range Interpretation Comments HEMOGLOBIN A1c (test code = 83738) 10.1 % COMPREHENSIVE METABOLIC PANEL [ADDED]2018-05-24 00:00:00 Test Item Value Reference Range Interpretation Comments GLUCOSE (test code = 2217) 198 MG/DL BUN (test code = 2208) 18 MG/DL CREATININE (test code = 2214) 0.86 MG/DL eGFR AMER. (test code 98 ML/MIN/1.73 = 78716) eGFR NON- AMER. (test 84 ML/MIN/1.73 code = 59231) CALC BUN/CREAT (test code = 21 RATIO [...] Interpretation Comments HEMOGLOBIN A1c (test code = 65167) 10.1 % HEMOGLOBIN A1c [ADDED]2018-05-24 00:00:00 Test Item Value Reference Range Interpretation Comments HEMOGLOBIN A1c (test code = 57202) 10.1 % COMPREHENSIVE METABOLIC PANEL [ADDED]2018-05-24 00:00:00 Test Item Value Reference Range Interpretation Comments GLUCOSE (test code = 2217) 198 MG/DL BUN (test code = 2208) 18 MG/DL CREATININE (test code = 2214) 0.86 MG/DL eGFR AMER. (test code 98 ML/MIN/1.73 = 29904) eGFR NON- AMER. (test 84 ML/MIN/1.73 code = 50786) CALC BUN/CREAT (test code = 21 RATIO [...] eGFR AMER. (test code 98 ML/MIN/1.73 = 18762) eGFR NON- AMER. (test 84 ML/MIN/1.73 code = 80693) CALC BUN/CREAT (test code = 21 RATIO [...] Interpretation Comments HEMOGLOBIN A1c (test code = 83523) 10.1 % HEMOGLOBIN A1c [ADDED]2018-05-24 00:00:00 Test Item Value Reference Range Interpretation Comments HEMOGLOBIN A1c (test code = 57055) 10.1 % HEMOGLOBIN A1c [ADDED]2018-05-24 00:00:00 Test Item Value Reference Range Interpretation Comments HEMOGLOBIN A1c (test code = 19380) 10.1 % COMPREHENSIVE METABOLIC PANEL [ADDED]2018-05-24 00:00:00 Test Item Value Reference Range Interpretation Comments GLUCOSE (test code = 2217) 198 MG/DL BUN (test code = 2208) 18 MG/DL CREATININE (test code = 2214) 0.86 MG/DL eGFR AMER. (test code 98 ML/MIN/1.73 = 68596) eGFR NON- AMER. (test 84 ML/MIN/1.73 code = 00888) CALC BUN/CREAT (test code = 21 RATIO [...] eGFR AMER. (test code 98 ML/MIN/1.73 = 06074) eGFR NON- AMER. (test 84 ML/MIN/1.73 code = 06090) CALC BUN/CREAT (test code = 21 RATIO [...] Interpretation Comments HEMOGLOBIN A1c (test code = 73886) 10.1 % HEMOGLOBIN A1c [ADDED]2018-05-24 00:00:00 Test Item Value Reference Range Interpretation Comments HEMOGLOBIN A1c (test code = 36050) 10.1 % HEMOGLOBIN A1c [ADDED]2018-05-24 00:00:00 Test Item Value Reference Range Interpretation Comments HEMOGLOBIN A1c (test code = 52457) 10.1 % COMPREHENSIVE METABOLIC PANEL [ADDED]2018-05-24 00:00:00 Test Item Value Reference Range Interpretation Comments GLUCOSE (test code = 2217) 198 MG/DL BUN (test code = 2208) 18 MG/DL CREATININE (test code = 2214) 0.86 MG/DL eGFR AMER. (test code 98 ML/MIN/1.73 = 52348) eGFR NON- AMER. (test 84 ML/MIN/1.73 code = 82664) CALC BUN/CREAT (test code = 21 RATIO [...] eGFR AMER. (test code 98 ML/MIN/1.73 = 36123) eGFR NON- AMER. (test 84 ML/MIN/1.73 code = 16810) CALC BUN/CREAT (test code = 21 RATIO [...] Interpretation Comments HEMOGLOBIN A1c (test code = 17335) 10.1 % HEMOGLOBIN A1c [ADDED]2018-05-24 00:00:00 Test Item Value Reference Range Interpretation Comments HEMOGLOBIN A1c (test code = 47479) 10.1 % HEMOGLOBIN A1c [ADDED]2018-05-24 00:00:00 Test Item Value Reference Range Interpretation Comments HEMOGLOBIN A1c (test code = 96026) 10.1 % HEMOGLOBIN [id number] 00:00:00 Test Item Value Reference Range Interpretation Comments HEMOGLOBIN A1c (test code = 04762) 8.5 % HEMOGLOBIN [id number] 00:00:00 Test Item Value Reference Range Interpretation Comments HEMOGLOBIN A1c (test code = 90909) 8.5 % HEMOGLOBIN [id number] 00:00:00 Test Item Value Reference Range Interpretation Comments HEMOGLOBIN A1c (test code = 06590) 8.5 % COMPREHENSIVE METABOLIC [id number] 00:00:00 Test Item Value Reference Range Interpretation Comments GLUCOSE (test code = 2217) 131 MG/DL BUN (test code = 2208) 16 MG/DL CREATININE (test code = 2214) 0.71 MG/DL eGFR AMER. (test code 124 ML/MIN/1.73 = 37815) eGFR NON- AMER. (test 107 ML/MIN/1.73 code = 14607) CALC BUN/CREAT (test code = 23 RATIO [...] code = 2219) 33 U/L COMPREHENSIVE METABOLIC [id number] 00:00:00 Test Item Value Reference Range Interpretation Comments GLUCOSE (test code = 2217) 131 MG/DL BUN (test code = 2208) 16 MG/DL CREATININE (test code = 2214) 0.71 MG/DL eGFR AMER. (test code 124 ML/MIN/1.73 = 43335) eGFR NON- AMER. (test 107 ML/MIN/1.73 code = 02204) CALC BUN/CREAT (test code = 23 RATIO [...] (test code = 2219) 33 U/L LIPID [id number] 00:00:00 Test Item Value Reference Range Interpretation Comments CHOLESTEROL (test code = 2210) 201 MG/DL TRIGLYCERIDES (test code = 2232) 1014 MG/DL HDL CHOLESTEROL (test code = 25 MG/DL 2220) CALC LDL CHOL (test code = 2237) NOTE MG/DL RISK RATIO LDL/HDL (test code = (NOTE) RATIO 2238) LIPID [id number] 00:00:00 Test Item Value Reference Range Interpretation Comments CHOLESTEROL (test code = 2210) 201 MG/DL TRIGLYCERIDES (test code = 2232) 1014 MG/DL HDL CHOLESTEROL (test code = 25 MG/DL 2220) CALC LDL CHOL (test code = 2237) NOTE MG/DL RISK RATIO LDL/HDL (test code = (NOTE) RATIO 2238) HEMOGLOBIN [id number] 00:00:00 Test Item Value Reference Range Interpretation Comments HEMOGLOBIN A1c (test code = 14451) 8.5 % HEMOGLOBIN [id number] 00:00:00 Test Item Value Reference Range Interpretation Comments HEMOGLOBIN A1c (test code = 17823) 8.5 % HEMOGLOBIN [id number] 00:00:00 Test Item Value Reference Range Interpretation Comments HEMOGLOBIN A1c (test code = 69318) 8.5 % COMPREHENSIVE METABOLIC [id number] 00:00:00 Test Item Value Reference Range Interpretation Comments GLUCOSE (test code = 2217) 131 MG/DL BUN (test code = 2208) 16 MG/DL CREATININE (test code = 2214) 0.71 MG/DL eGFR AMER. (test code 124 ML/MIN/1.73 = 49286) eGFR NON- AMER. (test 107 ML/MIN/1.73 code = 81292) CALC BUN/CREAT (test code = 23 RATIO [...] ALKALINE PHOSPHATASE (test 32 U/L code = 2203) AST (test code = 2218) 26 U/L ALT (test code = 2219) 33 U/L COMPREHENSIVE METABOLIC [id number] 00:00:00 Test Item Value Reference Range Interpretation Comments GLUCOSE (test code = 2217) 131 MG/DL BUN (test code = 2208) 16 MG/DL CREATININE (test code = 2214) 0.71 MG/DL eGFR AMER. (test code 124 ML/MIN/1.73 = 83399) eGFR NON- AMER. (test 107 ML/MIN/1.73 code = 64746) CALC BUN/CREAT (test code = 23 RATIO [...] (test code = 2219) 33 U/L LIPID [id number] 00:00:00 Test Item Value Reference Range Interpretation Comments CHOLESTEROL (test code = 2210) 201 MG/DL TRIGLYCERIDES (test code = 2232) 1014 MG/DL HDL CHOLESTEROL (test code = 25 MG/DL 2220) CALC LDL CHOL (test code = 2237) NOTE MG/DL RISK RATIO LDL/HDL (test code = (NOTE) RATIO 2238) LIPID [id number] 00:00:00 Test Item Value Reference Range Interpretation Comments CHOLESTEROL (test code = 2210) 201 MG/DL TRIGLYCERIDES (test code = 2232) 1014 MG/DL HDL CHOLESTEROL (test code = 25 MG/DL 2220) CALC LDL CHOL (test code = 2237) NOTE MG/DL RISK RATIO LDL/HDL (test code = (NOTE) RATIO 2238) HEMOGLOBIN [id number] 00:00:00 Test Item Value Reference Range Interpretation Comments HEMOGLOBIN A1c (test code = 32326) 8.5 % HEMOGLOBIN [id number] 00:00:00 Test Item Value Reference Range Interpretation Comments HEMOGLOBIN A1c (test code = 93988) 8.5 % HEMOGLOBIN [id number] 00:00:00 Test Item Value Reference Range Interpretation Comments HEMOGLOBIN A1c (test code = 19242) 8.5 % COMPREHENSIVE METABOLIC [id number] 00:00:00 Test Item Value Reference Range Interpretation Comments GLUCOSE (test code = 2217) 131 MG/DL BUN (test code = 2208) 16 MG/DL CREATININE (test code = 2214) 0.71 MG/DL eGFR AMER. (test code 124 ML/MIN/1.73 = 34029) eGFR NON- AMER. (test 107 ML/MIN/1.73 code = 73559) CALC BUN/CREAT (test code = 23 RATIO [...] code = 2219) 33 U/L COMPREHENSIVE METABOLIC [id number] 00:00:00 Test Item Value Reference Range Interpretation Comments GLUCOSE (test code = 2217) 131 MG/DL BUN (test code = 2208) 16 MG/DL CREATININE (test code = 2214) 0.71 MG/DL eGFR AMER. (test code 124 ML/MIN/1.73 = 88924) eGFR NON- AMER. (test 107 ML/MIN/1.73 code = 79332) CALC BUN/CREAT (test code = 23 RATIO [...] (test code = 2219) 33 U/L LIPID [id number] 00:00:00 Test Item Value Reference Range Interpretation Comments CHOLESTEROL (test code = 2210) 201 MG/DL TRIGLYCERIDES (test code = 2232) 1014 MG/DL HDL CHOLESTEROL (test code = 25 MG/DL 2220) CALC LDL CHOL (test code = 2237) NOTE MG/DL RISK RATIO LDL/HDL (test code = (NOTE) RATIO 2238) LIPID [id number] 00:00:00 Test Item Value Reference Range Interpretation Comments CHOLESTEROL (test code = 2210) 201 MG/DL TRIGLYCERIDES (test code = 2232) 1014 MG/DL HDL CHOLESTEROL (test code = 25 MG/DL 2220) CALC LDL CHOL (test code = 2237) NOTE MG/DL RISK RATIO LDL/HDL (test code = (NOTE) RATIO 2238) HEMOGLOBIN [id number] 00:00:00 Test Item Value Reference Range Interpretation Comments HEMOGLOBIN A1c (test code = 96738) 8.5 % HEMOGLOBIN [id number] 00:00:00 Test Item Value Reference Range Interpretation Comments HEMOGLOBIN A1c (test code = 75759) 8.5 % HEMOGLOBIN [id number] 00:00:00 Test Item Value Reference Range Interpretation Comments HEMOGLOBIN A1c (test code = 01158) 8.5 % COMPREHENSIVE METABOLIC [id number] 00:00:00 Test Item Value Reference Range Interpretation Comments GLUCOSE (test code = 2217) 131 MG/DL BUN (test code = 2208) 16 MG/DL CREATININE (test code = 2214) 0.71 MG/DL eGFR AMER. (test code 124 ML/MIN/1.73 = 56302) eGFR NON- AMER. (test 107 ML/MIN/1.73 code = 58816) CALC BUN/CREAT (test code = 23 RATIO [...] code = 2219) 33 U/L COMPREHENSIVE METABOLIC [id number] 00:00:00 Test Item Value Reference Range Interpretation Comments GLUCOSE (test code = 2217) 131 MG/DL BUN (test code = 2208) 16 MG/DL CREATININE (test code = 2214) 0.71 MG/DL eGFR AMER. (test code 124 ML/MIN/1.73 = 45370) eGFR NON- AMER. (test 107 ML/MIN/1.73 code = 68668) CALC BUN/CREAT (test code = 23 RATIO [...] (test code = 2219) 33 U/L LIPID [id number] 00:00:00 Test Item Value Reference Range Interpretation Comments CHOLESTEROL (test code = 2210) 201 MG/DL TRIGLYCERIDES (test code = 2232) 1014 MG/DL HDL CHOLESTEROL (test code = 25 MG/DL 2220) CALC LDL CHOL (test code = 2237) NOTE MG/DL RISK RATIO LDL/HDL (test code = (NOTE) RATIO 2238) LIPID [id number] 00:00:00 Test Item Value Reference Range Interpretation Comments CHOLESTEROL (test code = 2210) 201 MG/DL TRIGLYCERIDES (test code = 2232) 1014 MG/DL HDL CHOLESTEROL (test code = 25 MG/DL 2220) CALC LDL CHOL (test code = 2237) NOTE MG/DL RISK RATIO LDL/HDL (test code = (NOTE) RATIO 2238) HEMOGLOBIN [id number] 00:00:00 Test Item Value Reference Range Interpretation Comments HEMOGLOBIN A1c (test code = 26182) 8.5 % HEMOGLOBIN [id number] 00:00:00 Test Item Value Reference Range Interpretation Comments HEMOGLOBIN A1c (test code = 42652) 8.5 % HEMOGLOBIN [id number] 00:00:00 Test Item Value Reference Range Interpretation Comments HEMOGLOBIN A1c (test code = 28640) 8.5 % COMPREHENSIVE METABOLIC [id number] 00:00:00 Test Item Value Reference Range Interpretation Comments GLUCOSE (test code = 2217) 131 MG/DL BUN (test code = 2208) 16 MG/DL CREATININE (test code = 2214) 0.71 MG/DL eGFR AMER. (test code 124 ML/MIN/1.73 = 67271) eGFR NON- AMER. (test 107 ML/MIN/1.73 code = 69831) CALC BUN/CREAT (test code = 23 RATIO [...] code = 2219) 33 U/L COMPREHENSIVE METABOLIC [id number] 00:00:00 Test Item Value Reference Range Interpretation Comments GLUCOSE (test code = 2217) 131 MG/DL BUN (test code = 2208) 16 MG/DL CREATININE (test code = 2214) 0.71 MG/DL eGFR AMER. (test code 124 ML/MIN/1.73 = 08336) eGFR NON- AMER. (test 107 ML/MIN/1.73 code = 06230) CALC BUN/CREAT (test code = 23 RATIO [...] (test code = 2219) 33 U/L LIPID [id number] 00:00:00 Test Item Value Reference Range Interpretation Comments CHOLESTEROL (test code = 2210) 201 MG/DL TRIGLYCERIDES (test code = 2232) 1014 MG/DL HDL CHOLESTEROL (test code = 25 MG/DL 2220) CALC LDL CHOL (test code = 2237) NOTE MG/DL RISK RATIO LDL/HDL (test code = (NOTE) RATIO 2238) LIPID [id number] 00:00:00 Test Item Value Reference Range Interpretation Comments CHOLESTEROL (test code = 2210) 201 MG/DL TRIGLYCERIDES (test code = 2232) 1014 MG/DL HDL CHOLESTEROL (test code = 25 MG/DL 2220) CALC LDL CHOL (test code = 2237) NOTE MG/DL RISK RATIO LDL/HDL (test code = (NOTE) RATIO 2238) HEMOGLOBIN [id number] 00:00:00 Test Item Value Reference Range Interpretation Comments HEMOGLOBIN A1c (test code = 07463) 8.5 % HEMOGLOBIN [id number] 00:00:00 Test Item Value Reference Range Interpretation Comments HEMOGLOBIN A1c (test code = 44895) 8.5 % HEMOGLOBIN [id number] 00:00:00 Test Item Value Reference Range Interpretation Comments HEMOGLOBIN A1c (test code = 52038) 8.5 % COMPREHENSIVE METABOLIC [id number] 00:00:00 Test Item Value Reference Range Interpretation Comments GLUCOSE (test code = 2217) 131 MG/DL BUN (test code = 2208) 16 MG/DL CREATININE (test code = 2214) 0.71 MG/DL eGFR AMER. (test code 124 ML/MIN/1.73 = 89511) eGFR NON- AMER. (test 107 ML/MIN/1.73 code = 05199) CALC BUN/CREAT (test code = 23 RATIO [...] code = 2219) 33 U/L COMPREHENSIVE METABOLIC [id number] 00:00:00 Test Item Value Reference Range Interpretation Comments GLUCOSE (test code = 2217) 131 MG/DL BUN (test code = 2208) 16 MG/DL CREATININE (test code = 2214) 0.71 MG/DL eGFR AMER. (test code 124 ML/MIN/1.73 = 82130) eGFR NON- AMER. (test 107 ML/MIN/1.73 code = 83335) CALC BUN/CREAT (test code = 23 RATIO [...] (test code = 2219) 33 U/L LIPID [id number] 00:00:00 Test Item Value Reference Range Interpretation Comments CHOLESTEROL (test code = 2210) 201 MG/DL TRIGLYCERIDES (test code = 2232) 1014 MG/DL HDL CHOLESTEROL (test code = 25 MG/DL 0) CALC LDL CHOL (test code = 2237) NOTE MG/DL RISK RATIO LDL/HDL (test code = (NOTE) RATIO 2238) LIPID [id number] 00:00:00 Test Item Value Reference Range Interpretation Comments CHOLESTEROL (test code = 2210) 201 MG/DL TRIGLYCERIDES (test code = 2232) 1014 MG/DL HDL CHOLESTEROL (test code = 25 MG/DL 2220) CALC LDL CHOL (test code = 2237) NOTE MG/DL RISK RATIO LDL/HDL (test code = (NOTE) RATIO 2238) HEMOGLOBIN [id number] 00:00:00 Test Item Value Reference Range Interpretation Comments HEMOGLOBIN A1c (test code = 95861) 8.5 % HEMOGLOBIN [id number] 00:00:00 Test Item Value Reference Range Interpretation Comments HEMOGLOBIN A1c (test code = 28378) 8.5 % HEMOGLOBIN [id number] 00:00:00 Test Item Value Reference Range Interpretation Comments HEMOGLOBIN A1c (test code = 32246) 8.5 % COMPREHENSIVE METABOLIC [id number] 00:00:00 Test Item Value Reference Range Interpretation Comments GLUCOSE (test code = 2217) 131 MG/DL BUN (test code = 2208) 16 MG/DL CREATININE (test code = 2214) 0.71 MG/DL eGFR AMER. (test code 124 ML/MIN/1.73 = 37828) eGFR NON- AMER. (test 107 ML/MIN/1.73 code = 59119) CALC BUN/CREAT (test code = 23 RATIO [...] code = 2219) 33 U/L COMPREHENSIVE METABOLIC [id number] 00:00:00 Test Item Value Reference Range Interpretation Comments GLUCOSE (test code = 2217) 131 MG/DL BUN (test code = 2208) 16 MG/DL CREATININE (test code = 2214) 0.71 MG/DL eGFR AMER. (test code 124 ML/MIN/1.73 = 84951) eGFR NON- AMER. (test 107 ML/MIN/1.73 code = 99143) CALC BUN/CREAT (test code = 23 RATIO [...] (test code = 2219) 33 U/L LIPID [id number] 00:00:00 Test Item Value Reference Range Interpretation Comments CHOLESTEROL (test code = 2210) 201 MG/DL TRIGLYCERIDES (test code = 2232) 1014 MG/DL HDL CHOLESTEROL (test code = 25 MG/DL 2220) CALC LDL CHOL (test code = 2237) NOTE MG/DL RISK RATIO LDL/HDL (test code = (NOTE) RATIO 2238) LIPID [id number] 00:00:00 Test Item Value Reference Range Interpretation Comments CHOLESTEROL (test code = 2210) 201 MG/DL TRIGLYCERIDES (test code = 2232) 1014 MG/DL HDL CHOLESTEROL (test code = 25 MG/DL 2220) CALC LDL CHOL (test code = 2237) NOTE MG/DL RISK RATIO LDL/HDL (test code = (NOTE) RATIO 2238) HEMOGLOBIN [id number] 00:00:00 Test Item Value Reference Range Interpretation Comments HEMOGLOBIN A1c (test code = 36726) 8.5 % HEMOGLOBIN [id number] 00:00:00 Test Item Value Reference Range Interpretation Comments HEMOGLOBIN A1c (test code = 62430) 8.5 % COMPREHENSIVE METABOLIC [id number] 00:00:00 Test Item Value Reference Range Interpretation Comments GLUCOSE (test code = 2217) 131 MG/DL BUN (test code = 2208) 16 MG/DL CREATININE (test code = 2214) 0.71 MG/DL eGFR AMER. (test code 124 ML/MIN/1.73 = 87480) eGFR NON- AMER. (test 107 ML/MIN/1.73 code = 01136) CALC BUN/CREAT (test code = 23 RATIO [...] (test code = 2219) 33 U/L LIPID [id number] 00:00:00 Test Item Value Reference Range Interpretation Comments CHOLESTEROL (test code = 2210) 201 MG/DL TRIGLYCERIDES (test code = 2232) 1014 MG/DL HDL CHOLESTEROL (test code = 25 MG/DL 2219) CALC LDL CHOL (test code = 2237) NOTE MG/DL RISK RATIO LDL/HDL (test code = (NOTE) RATIO 2238) HEMOGLOBIN [id number] 00:00:00 Test Item Value Reference Range Interpretation Comments HEMOGLOBIN A1c (test code = 27963) 8.5 % HEMOGLOBIN [id number] 00:00:00 Test Item Value Reference Range Interpretation Comments HEMOGLOBIN A1c (test code = 12572) 8.5 % HEMOGLOBIN [id number] 00:00:00 Test Item Value Reference Range Interpretation Comments HEMOGLOBIN A1c (test code = 93372) 8.5 % COMPREHENSIVE METABOLIC [id number] 00:00:00 Test Item Value Reference Range Interpretation Comments GLUCOSE (test code = 2217) 131 MG/DL BUN (test code = 2208) 16 MG/DL CREATININE (test code = 2214) 0.71 MG/DL eGFR AMER. (test code 124 ML/MIN/1.73 = 81129) eGFR NON- AMER. (test 107 ML/MIN/1.73 code = 52871) CALC BUN/CREAT (test code = 23 RATIO [...] code = 2219) 33 U/L COMPREHENSIVE METABOLIC [id number] 00:00:00 Test Item Value Reference Range Interpretation Comments GLUCOSE (test code = 2217) 131 MG/DL BUN (test code = 2208) 16 MG/DL CREATININE (test code = 2214) 0.71 MG/DL eGFR AMER. (test code 124 ML/MIN/1.73 = 84325) eGFR NON- AMER. (test 107 ML/MIN/1.73 code = 06521) CALC BUN/CREAT (test code = 23 RATIO [...] (test code = 2219) 33 U/L LIPID [id number] 00:00:00 Test Item Value Reference Range Interpretation Comments CHOLESTEROL (test code = 2210) 201 MG/DL TRIGLYCERIDES (test code = 2232) 1014 MG/DL HDL CHOLESTEROL (test code = 25 MG/DL 2220) CALC LDL CHOL (test code = 2237) NOTE MG/DL RISK RATIO LDL/HDL (test code = (NOTE) RATIO 2238) LIPID [id number] 00:00:00 Test Item Value Reference Range Interpretation Comments CHOLESTEROL (test code = 2210) 201 MG/DL TRIGLYCERIDES (test code = 2232) 1014 MG/DL HDL CHOLESTEROL (test code = 25 MG/DL 2220) CALC LDL CHOL (test code = 2237) NOTE MG/DL RISK RATIO LDL/HDL (test code = (NOTE) RATIO 2238) HEMOGLOBIN [id number] 00:00:00 Test Item Value Reference Range Interpretation Comments HEMOGLOBIN A1c (test code = 46676) 8.5 % HEMOGLOBIN [id number] 00:00:00 Test Item Value Reference Range Interpretation Comments HEMOGLOBIN A1c (test code = 55347) 8.5 % HEMOGLOBIN [id number] 00:00:00 Test Item Value Reference Range Interpretation Comments HEMOGLOBIN A1c (test code = 29506) 8.5 % COMPREHENSIVE METABOLIC [id number] 00:00:00 Test Item Value Reference Range Interpretation Comments GLUCOSE (test code = 2217) 131 MG/DL BUN (test code = 2208) 16 MG/DL CREATININE (test code = 2214) 0.71 MG/DL eGFR AMER. (test code 124 ML/MIN/1.73 = 92779) eGFR NON- AMER. (test 107 ML/MIN/1.73 code = 17753) CALC BUN/CREAT (test code = 23 RATIO [...] code = 2219) 33 U/L COMPREHENSIVE METABOLIC [id number] 00:00:00 Test Item Value Reference Range Interpretation Comments GLUCOSE (test code = 2217) 131 MG/DL BUN (test code = 2208) 16 MG/DL CREATININE (test code = 2214) 0.71 MG/DL eGFR AMER. (test code 124 ML/MIN/1.73 = 58588) eGFR NON- AMER. (test 107 ML/MIN/1.73 code = 64490) CALC BUN/CREAT (test code = 23 RATIO [...] (test code = 2219) 33 U/L LIPID [id number] 00:00:00 Test Item Value Reference Range Interpretation Comments CHOLESTEROL (test code = 2210) 201 MG/DL TRIGLYCERIDES (test code = 2232) 1014 MG/DL HDL CHOLESTEROL (test code = 25 MG/DL 2220) CALC LDL CHOL (test code = 2237) NOTE MG/DL RISK RATIO LDL/HDL (test code = (NOTE) RATIO 2238) LIPID [id number] 00:00:00 Test Item Value Reference Range Interpretation Comments CHOLESTEROL (test code = 2210) 201 MG/DL TRIGLYCERIDES (test code = 2232) 1014 MG/DL HDL CHOLESTEROL (test code = 25 MG/DL 2220) CALC LDL CHOL (test code = 2237) NOTE MG/DL RISK RATIO LDL/HDL (test code = (NOTE) RATIO 2238) HEMOGLOBIN [id number] 00:00:00 Test Item Value Reference Range Interpretation Comments HEMOGLOBIN A1c (test code = 72513) 8.5 % HEMOGLOBIN [id number] 00:00:00 Test Item Value Reference Range Interpretation Comments HEMOGLOBIN A1c (test code = 38047) 8.5 % HEMOGLOBIN [id number] 00:00:00 Test Item Value Reference Range Interpretation Comments HEMOGLOBIN A1c (test code = 18380) 8.5 % COMPREHENSIVE METABOLIC [id number] 00:00:00 Test Item Value Reference Range Interpretation Comments GLUCOSE (test code = 2217) 131 MG/DL BUN (test code = 2208) 16 MG/DL CREATININE (test code = 2214) 0.71 MG/DL eGFR AMER. (test code 124 ML/MIN/1.73 = 62089) eGFR NON- AMER. (test 107 ML/MIN/1.73 code = 97941) CALC BUN/CREAT (test code = 23 RATIO [...] code = 2219) 33 U/L COMPREHENSIVE METABOLIC [id number] 00:00:00 Test Item Value Reference Range Interpretation Comments GLUCOSE (test code = 2217) 131 MG/DL BUN (test code = 2208) 16 MG/DL CREATININE (test code = 2214) 0.71 MG/DL eGFR AMER. (test code 124 ML/MIN/1.73 = 61597) eGFR NON- AMER. (test 107 ML/MIN/1.73 code = 52446) CALC BUN/CREAT (test code = 23 RATIO [...] (test code = 2219) 33 U/L LIPID [id number] 00:00:00 Test Item Value Reference Range Interpretation Comments CHOLESTEROL (test code = 2210) 201 MG/DL TRIGLYCERIDES (test code = 2232) 1014 MG/DL HDL CHOLESTEROL (test code = 25 MG/DL 2220) CALC LDL CHOL (test code = 2237) NOTE MG/DL RISK RATIO LDL/HDL (test code = (NOTE) RATIO 2238) LIPID [id number] 00:00:00 Test Item Value Reference Range Interpretation Comments CHOLESTEROL (test code = 2210) 201 MG/DL TRIGLYCERIDES (test code = 2232) 1014 MG/DL HDL CHOLESTEROL (test code = 25 MG/DL 2220) CALC LDL CHOL (test code = 2237) NOTE MG/DL RISK RATIO LDL/HDL (test code = (NOTE) RATIO 2238) CULTURE, HERPES [id number] 00:00:00 Test Item Value Reference Range Interpretation Comments SPECIMEN SOURCE (test code = 79139) LABIA HERPES CULTURE (test code = 3533) NEGATIVE CULTURE, HERPES [id number] 00:00:00 Test Item Value Reference Range Interpretation Comments SPECIMEN SOURCE (test code = 98032) LABIA HERPES CULTURE (test code = 3533) NEGATIVE CULTURE, HERPES [id number] 00:00:00 Test Item Value Reference Range Interpretation Comments SPECIMEN SOURCE (test code = 94489) LABIA HERPES CULTURE (test code = 3533) NEGATIVE CULTURE, HERPES [id number] 00:00:00 Test Item Value Reference Range Interpretation Comments SPECIMEN SOURCE (test code = 89774) LABIA HERPES CULTURE (test code = 3533) NEGATIVE CULTURE, HERPES [id number] 00:00:00 Test Item Value Reference Range Interpretation Comments SPECIMEN SOURCE (test code = 96729) LABIA HERPES CULTURE (test code = 3533) NEGATIVE CULTURE, HERPES [id number] 00:00:00 Test Item Value Reference Range Interpretation Comments SPECIMEN SOURCE (test code = 99110) LABIA HERPES CULTURE (test code = 3533) NEGATIVE CULTURE, HERPES [id number] 00:00:00 Test Item Value Reference Range Interpretation Comments SPECIMEN SOURCE (test code = 95197) LABIA HERPES CULTURE (test code = 3533) NEGATIVE CULTURE, HERPES [id number] 00:00:00 Test Item Value Reference Range Interpretation Comments SPECIMEN SOURCE (test code = 95344) LABIA HERPES CULTURE (test code = 3533) NEGATIVE CULTURE, HERPES [id number] 00:00:00 Test Item Value Reference Range Interpretation Comments SPECIMEN SOURCE (test code = 43537) LABIA HERPES CULTURE (test code = 3533) NEGATIVE CULTURE, HERPES [id number] 00:00:00 Test Item Value Reference Range Interpretation Comments SPECIMEN SOURCE (test code = 86671) LABIA HERPES CULTURE (test code = 3533) NEGATIVE CULTURE, HERPES [id number] 00:00:00 Test Item Value Reference Range Interpretation Comments SPECIMEN SOURCE (test code = 30580) LABIA HERPES CULTURE (test code = 3533) NEGATIVE CULTURE, HERPES [id number] 00:00:00 Test Item Value Reference Range Interpretation Comments SPECIMEN SOURCE (test code = 90423) LABIA HERPES CULTURE (test code = 3533) NEGATIVE CULTURE, HERPES [id number] 00:00:00 Test Item Value Reference Range Interpretation Comments SPECIMEN SOURCE (test code = 12848) LABIA HERPES CULTURE (test code = 3533) NEGATIVE CULTURE, HERPES [id number] 00:00:00 Test Item Value Reference Range Interpretation Comments SPECIMEN SOURCE (test code = 64733) LABIA HERPES CULTURE (test code = 3533) NEGATIVE CULTURE, HERPES [id number] 00:00:00 Test Item Value Reference Range Interpretation Comments SPECIMEN SOURCE (test code = 87603) LABIA HERPES CULTURE (test code = 3533) NEGATIVE CULTURE, HERPES [id number] 00:00:00 Test Item Value Reference Range Interpretation Comments SPECIMEN SOURCE (test code = 70341) LABIA HERPES CULTURE (test code = 3533) NEGATIVE CULTURE, HERPES [id number] 00:00:00 Test Item Value Reference Range Interpretation Comments SPECIMEN SOURCE (test code = 31899) LABIA HERPES CULTURE (test code = 3533) NEGATIVE CULTURE, HERPES [id number] 00:00:00 Test Item Value Reference Range Interpretation Comments SPECIMEN SOURCE (test code = 43083) LABIA HERPES CULTURE (test code = 3533) NEGATIVE CULTURE, HERPES [id number] 00:00:00 Test Item Value Reference Range Interpretation Comments SPECIMEN SOURCE (test code = 24024) LABIA HERPES CULTURE (test code = 3533) NEGATIVE CULTURE, HERPES [id number] 00:00:00 Test Item Value Reference Range Interpretation Comments SPECIMEN SOURCE (test code = 49351) LABIA HERPES CULTURE (test code = 3533) NEGATIVE CULTURE, HERPES [id number] 00:00:00 Test Item Value Reference Range Interpretation Comments SPECIMEN SOURCE (test code = 02677) LABIA HERPES CULTURE (test code = 3533) NEGATIVE VAGINAL PATHOGENS DNA [id number] 00:00:00 Test Item Value Reference Range Interpretation Comments ANDIE SPECIES (test code = ) NEGATIVE G. VAGINALIS (test code = 60790) NEGATIVE T. VAGINALIS (test code = 93433) NEGATIVE VAGINAL PATHOGENS DNA [id number] 00:00:00 Test Item Value Reference Range Interpretation Comments ANDIE SPECIES (test code = 81300) NEGATIVE G. VAGINALIS (test code = 20808) NEGATIVE T. VAGINALIS (test code = 99704) NEGATIVE VAGINAL PATHOGENS DNA [id number] 00:00:00 Test Item Value Reference Range Interpretation Comments ANDIE SPECIES (test code = 53219) NEGATIVE G. VAGINALIS (test code = 41385) NEGATIVE T. VAGINALIS (test code = 69793) NEGATIVE VAGINAL PATHOGENS DNA [id number] 00:00:00 Test Item Value Reference Range Interpretation Comments ANDIE SPECIES (test code = 53048) NEGATIVE G. VAGINALIS (test code = 20587) NEGATIVE T. VAGINALIS (test code = 91255) NEGATIVE VAGINAL PATHOGENS DNA [id number] 00:00:00 Test Item Value Reference Range Interpretation Comments ANDIE SPECIES (test code = 58425) NEGATIVE G. VAGINALIS (test code = 35184) NEGATIVE T. VAGINALIS (test code = 84494) NEGATIVE VAGINAL PATHOGENS DNA [id number] 00:00:00 Test Item Value Reference Range Interpretation Comments ANDIE SPECIES (test code = 85392) NEGATIVE G. VAGINALIS (test code = 80781) NEGATIVE T. VAGINALIS (test code = 43426) NEGATIVE VAGINAL PATHOGENS DNA [id number] 00:00:00 Test Item Value Reference Range Interpretation Comments ANDIE SPECIES (test code = 86847) NEGATIVE G. VAGINALIS (test code = 64942) NEGATIVE T. VAGINALIS (test code = 31245) NEGATIVE VAGINAL PATHOGENS DNA [id number] 00:00:00 Test Item Value Reference Range Interpretation Comments ANDIE SPECIES (test code = 09229) NEGATIVE G. VAGINALIS (test code = 98014) NEGATIVE T. VAGINALIS (test code = 76166) NEGATIVE VAGINAL PATHOGENS DNA [id number] 00:00:00 Test Item Value Reference Range Interpretation Comments ANDIE SPECIES (test code = 46665) NEGATIVE G. VAGINALIS (test code = 11050) NEGATIVE T. VAGINALIS (test code = 51071) NEGATIVE VAGINAL PATHOGENS DNA [id number] 00:00:00 Test Item Value Reference Range Interpretation Comments ANDIE SPECIES (test code = 48096) NEGATIVE G. VAGINALIS (test code = 48194) NEGATIVE T. VAGINALIS (test code = 66372) NEGATIVE VAGINAL PATHOGENS DNA [id number] 00:00:00 Test Item Value Reference Range Interpretation Comments ANDIE SPECIES (test code = 37239) NEGATIVE G. VAGINALIS (test code = 50395) NEGATIVE T. VAGINALIS (test code = 16579) NEGATIVE VAGINAL PATHOGENS DNA [id number] 00:00:00 Test Item Value Reference Range Interpretation Comments ANDIE SPECIES (test code = 91140) NEGATIVE G. VAGINALIS (test code = 32757) NEGATIVE T. VAGINALIS (test code = 92060) NEGATIVE VAGINAL PATHOGENS DNA [id number] 00:00:00 Test Item Value Reference Range Interpretation Comments ANDIE SPECIES (test code = 44377) NEGATIVE G. VAGINALIS (test code = 88833) NEGATIVE T. VAGINALIS (test code = 78877) NEGATIVE VAGINAL PATHOGENS DNA [id number] 00:00:00 Test Item Value Reference Range Interpretation Comments ANDIE SPECIES (test code = 40874) NEGATIVE G. VAGINALIS (test code = 34065) NEGATIVE T. VAGINALIS (test code = 15284) NEGATIVE VAGINAL PATHOGENS DNA [id number] 00:00:00 Test Item Value Reference Range Interpretation Comments ANDIE SPECIES (test code = 45656) NEGATIVE G. VAGINALIS (test code = 30462) NEGATIVE T. VAGINALIS (test code = 73552) NEGATIVE VAGINAL PATHOGENS DNA [id number] 00:00:00 Test Item Value Reference Range Interpretation Comments ANDIE SPECIES (test code = 93975) NEGATIVE G. VAGINALIS (test code = 33138) NEGATIVE T. VAGINALIS (test code = 58294) NEGATIVE VAGINAL PATHOGENS DNA [id number] 00:00:00 Test Item Value Reference Range Interpretation Comments ANDIE SPECIES (test code = 04233) NEGATIVE G. VAGINALIS (test code = 05569) NEGATIVE T. VAGINALIS (test code = 50571) NEGATIVE VAGINAL PATHOGENS DNA [id number] 00:00:00 Test Item Value Reference Range Interpretation Comments ANDIE SPECIES (test code = 77946) NEGATIVE G. VAGINALIS (test code = 76011) NEGATIVE T. VAGINALIS (test code = 86268) NEGATIVE VAGINAL PATHOGENS DNA [id number] 00:00:00 Test Item Value Reference Range Interpretation Comments ANDIE SPECIES (test code = 63495) NEGATIVE G. VAGINALIS (test code = 99093) NEGATIVE T. VAGINALIS (test code = ) NEGATIVE VAGINAL PATHOGENS DNA [id number] 00:00:00 Test Item Value Reference Range Interpretation Comments ANDIE SPECIES (test code = ) NEGATIVE G. VAGINALIS (test code = 13773) NEGATIVE T. VAGINALIS (test code = 86642) NEGATIVE VAGINAL PATHOGENS DNA [id number] 00:00:00 Test Item Value Reference Range Interpretation Comments ANDIE SPECIES (test code = ) NEGATIVE G. VAGINALIS (test code = 77561) NEGATIVE T. VAGINALIS (test code = 66516) NEGATIVE COMPREHENSIVE METABOLIC [id number] 00:00:00 Test Item Value Reference Range Interpretation Comments GLUCOSE (test code = 2217) 138 MG/DL BUN (test code = 2208) 13 MG/DL CREATININE (test code = 2214) 0.50 MG/DL eGFR AMER. (test code 141 ML/MIN/1.73 = 32054) eGFR NON- AMER. (test 122 ML/MIN/1.73 code = 04159) CALC BUN/CREAT (test code = 26 RATIO [...] code = 2219) 41 U/L COMPREHENSIVE METABOLIC [id number] 00:00:00 Test Item Value Reference Range Interpretation Comments GLUCOSE (test code = 2217) 138 MG/DL BUN (test code = 2208) 13 MG/DL CREATININE (test code = 2214) 0.50 MG/DL eGFR AMER. (test code 141 ML/MIN/1.73 = 43069) eGFR NON- AMER. (test 122 ML/MIN/1.73 code = 38238) CALC BUN/CREAT (test code = 26 RATIO [...] (test code = 2219) 41 U/L LIPID [id number] 00:00:00 Test Item Value Reference Range Interpretation Comments CHOLESTEROL (test code = 2210) 359 MG/DL TRIGLYCERIDES (test code = 2232) 1659 MG/DL HDL CHOLESTEROL (test code = 15 MG/DL 2220) CALC LDL CHOL (test code = 2237) NOTE MG/DL RISK RATIO LDL/HDL (test code = (NOTE) RATIO 2238) LIPID [id number] 00:00:00 Test Item Value Reference Range Interpretation Comments CHOLESTEROL (test code = 2210) 359 MG/DL TRIGLYCERIDES (test code = 2232) 1659 MG/DL HDL CHOLESTEROL (test code = 15 MG/DL 2220) CALC LDL CHOL (test code = 2237) NOTE MG/DL RISK RATIO LDL/HDL (test code = (NOTE) RATIO 2238) CBC W/AUTO [id number] 00:00:00 Test Item Value Reference Range Interpretation [...] code = 1015) 287 K/UL CBC W/AUTO [id number] 00:00:00 Test Item Value Reference Range Interpretation [...] code = 1015) 287 K/UL CBC W/AUTO [id number] 00:00:00 Test Item Value Reference Range Interpretation [...] (test code = 1015) 287 K/UL HEMOGLOBIN [id number] 00:00:00 Test Item Value Reference Range Interpretation Comments HEMOGLOBIN A1c (test code = 73782) 9.8 % HEMOGLOBIN [id number] 00:00:00 Test Item Value Reference Range Interpretation Comments HEMOGLOBIN A1c (test code = 91821) 9.8 % HEMOGLOBIN [id number] 00:00:00 Test Item Value Reference Range Interpretation Comments HEMOGLOBIN A1c (test code = 10489) 9.8 % [id number] 00:00:00 Test Item Value Reference Range Interpretation Comments TSH (test code = 2821) 2.110 UIU/ML [id number] 00:00:00 Test Item Value Reference Range Interpretation Comments TSH (test code = 2821) 2.110 UIU/ML [id number] 00:00:00 Test Item Value Reference Range Interpretation Comments TSH (test code = 2821) 2.110 UIU/ML COMPREHENSIVE METABOLIC [id number] 00:00:00 Test Item Value Reference Range Interpretation Comments GLUCOSE (test code = 2217) 138 MG/DL BUN (test code = 2208) 13 MG/DL CREATININE (test code = 2214) 0.50 MG/DL eGFR AMER. (test code 141 ML/MIN/1.73 = 30545) eGFR NON- AMER. (test 122 ML/MIN/1.73 code = 83406) CALC BUN/CREAT (test code = 26 RATIO 5) SODIUM (test code = 2231) [...] code = 2219) 41 U/L COMPREHENSIVE METABOLIC [id number] 00:00:00 Test Item Value Reference Range Interpretation Comments GLUCOSE (test code = 2217) 138 MG/DL BUN (test code = 2208) 13 MG/DL CREATININE (test code = 2214) 0.50 MG/DL eGFR AMER. (test code 141 ML/MIN/1.73 = 34019) eGFR NON- AMER. (test 122 ML/MIN/1.73 code = 13509) CALC BUN/CREAT (test code = 26 RATIO [...] (test code = 2219) 41 U/L LIPID [id number] 00:00:00 Test Item Value Reference Range Interpretation Comments CHOLESTEROL (test code = 2210) 359 MG/DL TRIGLYCERIDES (test code = 2232) 1659 MG/DL HDL CHOLESTEROL (test code = 15 MG/DL 2220) CALC LDL CHOL (test code = 2237) NOTE MG/DL RISK RATIO LDL/HDL (test code = (NOTE) RATIO 2238) LIPID [id number] 00:00:00 Test Item Value Reference Range Interpretation Comments CHOLESTEROL (test code = 2210) 359 MG/DL TRIGLYCERIDES (test code = 2232) 1659 MG/DL HDL CHOLESTEROL (test code = 15 MG/DL 2220) CALC LDL CHOL (test code = 2237) NOTE MG/DL RISK RATIO LDL/HDL (test code = (NOTE) RATIO 2238) CBC W/AUTO [id number] 00:00:00 Test Item Value Reference Range Interpretation [...] code = 1015) 287 K/UL CBC W/AUTO [id number] 00:00:00 Test Item Value Reference Range Interpretation [...] code = 1015) 287 K/UL CBC W/AUTO [id number] 00:00:00 Test Item Value Reference Range Interpretation [...] (test code = 1015) 287 K/UL HEMOGLOBIN [id number] 00:00:00 Test Item Value Reference Range Interpretation Comments HEMOGLOBIN A1c (test code = 14423) 9.8 % HEMOGLOBIN [id number] 00:00:00 Test Item Value Reference Range Interpretation Comments HEMOGLOBIN A1c (test code = 85418) 9.8 % HEMOGLOBIN [id number] 00:00:00 Test Item Value Reference Range Interpretation Comments HEMOGLOBIN A1c (test code = 84253) 9.8 % [id number] 00:00:00 Test Item Value Reference Range Interpretation Comments TSH (test code = 2821) 2.110 UIU/ML [id number] 00:00:00 Test Item Value Reference Range Interpretation Comments TSH (test code = 2821) 2.110 UIU/ML [id number] 00:00:00 Test Item Value Reference Range Interpretation Comments TSH (test code = 2821) 2.110 UIU/ML COMPREHENSIVE METABOLIC [id number] 00:00:00 Test Item Value Reference Range Interpretation Comments GLUCOSE (test code = 2217) 138 MG/DL BUN (test code = 2208) 13 MG/DL CREATININE (test code = 2214) 0.50 MG/DL eGFR AMER. (test code 141 ML/MIN/1.73 = 95036) eGFR NON- AMER. (test 122 ML/MIN/1.73 code = 83854) CALC BUN/CREAT (test code = 26 RATIO 2234) SODIUM (test code = 2231) [...] code = 2219) 41 U/L COMPREHENSIVE METABOLIC [id number] 00:00:00 Test Item Value Reference Range Interpretation Comments GLUCOSE (test code = 2217) 138 MG/DL BUN (test code = 2208) 13 MG/DL CREATININE (test code = 2214) 0.50 MG/DL eGFR AMER. (test code 141 ML/MIN/1.73 = 34673) eGFR NON- AMER. (test 122 ML/MIN/1.73 code = 00409) CALC BUN/CREAT (test code = 26 RATIO [...] (test code = 2219) 41 U/L LIPID [id number] 00:00:00 Test Item Value Reference Range Interpretation Comments CHOLESTEROL (test code = 2210) 359 MG/DL TRIGLYCERIDES (test code = 2232) 1659 MG/DL HDL CHOLESTEROL (test code = 15 MG/DL 2220) CALC LDL CHOL (test code = 2237) NOTE MG/DL RISK RATIO LDL/HDL (test code = (NOTE) RATIO 2238) LIPID [id number] 00:00:00 Test Item Value Reference Range Interpretation Comments CHOLESTEROL (test code = 2210) 359 MG/DL TRIGLYCERIDES (test code = 2232) 1659 MG/DL HDL CHOLESTEROL (test code = 15 MG/DL 2220) CALC LDL CHOL (test code = 2237) NOTE MG/DL RISK RATIO LDL/HDL (test code = (NOTE) RATIO 2238) CBC W/AUTO [id number] 00:00:00 Test Item Value Reference Range Interpretation [...] code = 1015) 287 K/UL CBC W/AUTO [id number] 00:00:00 Test Item Value Reference Range Interpretation [...] code = 1015) 287 K/UL CBC W/AUTO [id number] 00:00:00 Test Item Value Reference Range Interpretation [...] (test code = 1015) 287 K/UL HEMOGLOBIN [id number] 00:00:00 Test Item Value Reference Range Interpretation Comments HEMOGLOBIN A1c (test code = 69439) 9.8 % HEMOGLOBIN [id number] 00:00:00 Test Item Value Reference Range Interpretation Comments HEMOGLOBIN A1c (test code = 10524) 9.8 % HEMOGLOBIN [id number] 00:00:00 Test Item Value Reference Range Interpretation Comments HEMOGLOBIN A1c (test code = 52207) 9.8 % [id number] 00:00:00 Test Item Value Reference Range Interpretation Comments TSH (test code = 2821) 2.110 UIU/ML [id number] 00:00:00 Test Item Value Reference Range Interpretation Comments TSH (test code = 2821) 2.110 UIU/ML [id number] 00:00:00 Test Item Value Reference Range Interpretation Comments TSH (test code = 2821) 2.110 UIU/ML COMPREHENSIVE METABOLIC [id number] 00:00:00 Test Item Value Reference Range Interpretation Comments GLUCOSE (test code = 2217) 138 MG/DL BUN (test code = 2208) 13 MG/DL CREATININE (test code = 2214) 0.50 MG/DL eGFR AMER. (test code 141 ML/MIN/1.73 = 53525) eGFR NON- AMER. (test 122 ML/MIN/1.73 code = 66914) CALC BUN/CREAT (test code = 26 RATIO [...] code = 2219) 41 U/L COMPREHENSIVE METABOLIC [id number] 00:00:00 Test Item Value Reference Range Interpretation Comments GLUCOSE (test code = 2217) 138 MG/DL BUN (test code = 2208) 13 MG/DL CREATININE (test code = 2214) 0.50 MG/DL eGFR AMER. (test code 141 ML/MIN/1.73 = 38300) eGFR NON- AMER. (test 122 ML/MIN/1.73 code = 30881) CALC BUN/CREAT (test code = 26 RATIO [...] (test code = 2219) 41 U/L LIPID [id number] 00:00:00 Test Item Value Reference Range Interpretation Comments CHOLESTEROL (test code = 2210) 359 MG/DL TRIGLYCERIDES (test code = 2232) 1659 MG/DL HDL CHOLESTEROL (test code = 15 MG/DL 2220) CALC LDL CHOL (test code = 2237) NOTE MG/DL RISK RATIO LDL/HDL (test code = (NOTE) RATIO 2238) LIPID [id number] 00:00:00 Test Item Value Reference Range Interpretation Comments CHOLESTEROL (test code = 2210) 359 MG/DL TRIGLYCERIDES (test code = 2232) 1659 MG/DL HDL CHOLESTEROL (test code = 15 MG/DL 2220) CALC LDL CHOL (test code = 2237) NOTE MG/DL RISK RATIO LDL/HDL (test code = (NOTE) RATIO 2238) CBC W/AUTO [id number] 00:00:00 Test Item Value Reference Range Interpretation [...] code = 1015) 287 K/UL CBC W/AUTO [id number] 00:00:00 Test Item Value Reference Range Interpretation [...] code = 1015) 287 K/UL CBC W/AUTO [id number] 00:00:00 Test Item Value Reference Range Interpretation [...] (test code = 1015) 287 K/UL HEMOGLOBIN [id number] 00:00:00 Test Item Value Reference Range Interpretation Comments HEMOGLOBIN A1c (test code = 20127) 9.8 % HEMOGLOBIN [id number] 00:00:00 Test Item Value Reference Range Interpretation Comments HEMOGLOBIN A1c (test code = 73033) 9.8 % HEMOGLOBIN [id number] 00:00:00 Test Item Value Reference Range Interpretation Comments HEMOGLOBIN A1c (test code = 58366) 9.8 % [id number] 00:00:00 Test Item Value Reference Range Interpretation Comments TSH (test code = 2821) 2.110 UIU/ML [id number] 00:00:00 Test Item Value Reference Range Interpretation Comments TSH (test code = 2821) 2.110 UIU/ML [id number] 00:00:00 Test Item Value Reference Range Interpretation Comments TSH (test code = 2821) 2.110 UIU/ML COMPREHENSIVE METABOLIC [id number] 00:00:00 Test Item Value Reference Range Interpretation Comments GLUCOSE (test code = 2217) 138 MG/DL BUN (test code = 2208) 13 MG/DL CREATININE (test code = 2214) 0.50 MG/DL eGFR AMER. (test code 141 ML/MIN/1.73 = 52212) eGFR NON- AMER. (test 122 ML/MIN/1.73 code = 48418) CALC BUN/CREAT (test code = 26 RATIO [...] code = 2219) 41 U/L COMPREHENSIVE METABOLIC [id number] 00:00:00 Test Item Value Reference Range Interpretation Comments GLUCOSE (test code = 2217) 138 MG/DL BUN (test code = 2208) 13 MG/DL CREATININE (test code = 2214) 0.50 MG/DL eGFR AMER. (test code 141 ML/MIN/1.73 = 80263) eGFR NON- AMER. (test 122 ML/MIN/1.73 code = 88610) CALC BUN/CREAT (test code = 26 RATIO [...] (test code = 2219) 41 U/L LIPID [id number] 00:00:00 Test Item Value Reference Range Interpretation Comments CHOLESTEROL (test code = 2210) 359 MG/DL TRIGLYCERIDES (test code = 2232) 1659 MG/DL HDL CHOLESTEROL (test code = 15 MG/DL 2220) CALC LDL CHOL (test code = 2237) NOTE MG/DL RISK RATIO LDL/HDL (test code = (NOTE) RATIO 2238) LIPID [id number] 00:00:00 Test Item Value Reference Range Interpretation Comments CHOLESTEROL (test code = 2210) 359 MG/DL TRIGLYCERIDES (test code = 2232) 1659 MG/DL HDL CHOLESTEROL (test code = 15 MG/DL 2220) CALC LDL CHOL (test code = 2237) NOTE MG/DL RISK RATIO LDL/HDL (test code = (NOTE) RATIO 2238) CBC W/AUTO [id number] 00:00:00 Test Item Value Reference Range Interpretation [...] code = 1015) 287 K/UL CBC W/AUTO [id number] 00:00:00 Test Item Value Reference Range Interpretation [...] code = 1015) 287 K/UL CBC W/AUTO [id number] 00:00:00 Test Item Value Reference Range Interpretation [...] (test code = 1015) 287 K/UL HEMOGLOBIN [id number] 00:00:00 Test Item Value Reference Range Interpretation Comments HEMOGLOBIN A1c (test code = 04714) 9.8 % HEMOGLOBIN [id number] 00:00:00 Test Item Value Reference Range Interpretation Comments HEMOGLOBIN A1c (test code = 47959) 9.8 % HEMOGLOBIN [id number] 00:00:00 Test Item Value Reference Range Interpretation Comments HEMOGLOBIN A1c (test code = 71174) 9.8 % [id number] 00:00:00 Test Item Value Reference Range Interpretation Comments TSH (test code = 2821) 2.110 UIU/ML [id number] 00:00:00 Test Item Value Reference Range Interpretation Comments TSH (test code = 2821) 2.110 UIU/ML [id number] 00:00:00 Test Item Value Reference Range Interpretation Comments TSH (test code = 2821) 2.110 UIU/ML COMPREHENSIVE METABOLIC [id number] 00:00:00 Test Item Value Reference Range Interpretation Comments GLUCOSE (test code = 2217) 138 MG/DL BUN (test code = 2208) 13 MG/DL CREATININE (test code = 2214) 0.50 MG/DL eGFR AMER. (test code 141 ML/MIN/1.73 = 59523) eGFR NON- AMER. (test 122 ML/MIN/1.73 code = 10466) CALC BUN/CREAT (test code = 26 RATIO [...] code = 2219) 41 U/L COMPREHENSIVE METABOLIC [id number] 00:00:00 Test Item Value Reference Range Interpretation Comments GLUCOSE (test code = 2217) 138 MG/DL BUN (test code = 2208) 13 MG/DL CREATININE (test code = 2214) 0.50 MG/DL eGFR AMER. (test code 141 ML/MIN/1.73 = 93517) eGFR NON- AMER. (test 122 ML/MIN/1.73 code = 00297) CALC BUN/CREAT (test code = 26 RATIO [...] (test code = 2219) 41 U/L LIPID [id number] 00:00:00 Test Item Value Reference Range Interpretation Comments CHOLESTEROL (test code = 2210) 359 MG/DL TRIGLYCERIDES (test code = 2232) 1659 MG/DL HDL CHOLESTEROL (test code = 15 MG/DL 2220) CALC LDL CHOL (test code = 2237) NOTE MG/DL RISK RATIO LDL/HDL (test code = (NOTE) RATIO 2238) LIPID [id number] 00:00:00 Test Item Value Reference Range Interpretation Comments CHOLESTEROL (test code = 2210) 359 MG/DL TRIGLYCERIDES (test code = 2232) 1659 MG/DL HDL CHOLESTEROL (test code = 15 MG/DL 2220) CALC LDL CHOL (test code = 2237) NOTE MG/DL RISK RATIO LDL/HDL (test code = (NOTE) RATIO 2238) CBC W/AUTO [id number] 00:00:00 Test Item Value Reference Range Interpretation [...] code = 1015) 287 K/UL CBC W/AUTO [id number] 00:00:00 Test Item Value Reference Range Interpretation [...] code = 1015) 287 K/UL CBC W/AUTO [id number] 00:00:00 Test Item Value Reference Range Interpretation [...] (test code = 1015) 287 K/UL HEMOGLOBIN [id number] 00:00:00 Test Item Value Reference Range Interpretation Comments HEMOGLOBIN A1c (test code = 96346) 9.8 % HEMOGLOBIN [id number] 00:00:00 Test Item Value Reference Range Interpretation Comments HEMOGLOBIN A1c (test code = 00226) 9.8 % HEMOGLOBIN [id number] 00:00:00 Test Item Value Reference Range Interpretation Comments HEMOGLOBIN A1c (test code = 45911) 9.8 % [id number] 00:00:00 Test Item Value Reference Range Interpretation Comments TSH (test code = 2821) 2.110 UIU/ML [id number] 00:00:00 Test Item Value Reference Range Interpretation Comments TSH (test code = 2821) 2.110 UIU/ML [id number] 00:00:00 Test Item Value Reference Range Interpretation Comments TSH (test code = 2821) 2.110 UIU/ML COMPREHENSIVE METABOLIC [id number] 00:00:00 Test Item Value Reference Range Interpretation Comments GLUCOSE (test code = 2217) 138 MG/DL BUN (test code = 2208) 13 MG/DL CREATININE (test code = 2214) 0.50 MG/DL eGFR AMER. (test code 141 ML/MIN/1.73 = 40312) eGFR NON- AMER. (test 122 ML/MIN/1.73 code = 61509) CALC BUN/CREAT (test code = 26 RATIO [...] code = 2219) 41 U/L COMPREHENSIVE METABOLIC [id number] 00:00:00 Test Item Value Reference Range Interpretation Comments GLUCOSE (test code = 2217) 138 MG/DL BUN (test code = 2208) 13 MG/DL CREATININE (test code = 2214) 0.50 MG/DL eGFR AMER. (test code 141 ML/MIN/1.73 = 37601) eGFR NON- AMER. (test 122 ML/MIN/1.73 code = 82880) CALC BUN/CREAT (test code = 26 RATIO [...] (test code = 2219) 41 U/L LIPID [id number] 00:00:00 Test Item Value Reference Range Interpretation Comments CHOLESTEROL (test code = 2210) 359 MG/DL TRIGLYCERIDES (test code = 2232) 1659 MG/DL HDL CHOLESTEROL (test code = 15 MG/DL 2220) CALC LDL CHOL (test code = 2237) NOTE MG/DL RISK RATIO LDL/HDL (test code = (NOTE) RATIO 2238) LIPID [id number] 00:00:00 Test Item Value Reference Range Interpretation Comments CHOLESTEROL (test code = 2210) 359 MG/DL TRIGLYCERIDES (test code = 2232) 1659 MG/DL HDL CHOLESTEROL (test code = 15 MG/DL 2220) CALC LDL CHOL (test code = 2237) NOTE MG/DL RISK RATIO LDL/HDL (test code = (NOTE) RATIO 2238) CBC W/AUTO [id number] 00:00:00 Test Item Value Reference Range Interpretation [...] code = 1015) 287 K/UL CBC W/AUTO [id number] 00:00:00 Test Item Value Reference Range Interpretation [...] code = 1015) 287 K/UL CBC W/AUTO [id number] 00:00:00 Test Item Value Reference Range Interpretation [...] (test code = 1015) 287 K/UL HEMOGLOBIN [id number] 00:00:00 Test Item Value Reference Range Interpretation Comments HEMOGLOBIN A1c (test code = 43716) 9.8 % HEMOGLOBIN [id number] 00:00:00 Test Item Value Reference Range Interpretation Comments HEMOGLOBIN A1c (test code = 41902) 9.8 % HEMOGLOBIN [id number] 00:00:00 Test Item Value Reference Range Interpretation Comments HEMOGLOBIN A1c (test code = 78575) 9.8 % [id number] 00:00:00 Test Item Value Reference Range Interpretation Comments TSH (test code = 2821) 2.110 UIU/ML [id number] 00:00:00 Test Item Value Reference Range Interpretation Comments TSH (test code = 2821) 2.110 UIU/ML [id number] 00:00:00 Test Item Value Reference Range Interpretation Comments TSH (test code = 2821) 2.110 UIU/ML COMPREHENSIVE METABOLIC [id number] 00:00:00 Test Item Value Reference Range Interpretation Comments GLUCOSE (test code = 2217) 138 MG/DL BUN (test code = 2208) 13 MG/DL CREATININE (test code = 2214) 0.50 MG/DL eGFR AMER. (test code 141 ML/MIN/1.73 = 25798) eGFR NON- AMER. (test 122 ML/MIN/1.73 code = 40173) CALC BUN/CREAT (test code = 26 RATIO [...] (test code = 2219) 41 U/L LIPID [id number] 00:00:00 Test Item Value Reference Range Interpretation Comments CHOLESTEROL (test code = 2210) 359 MG/DL TRIGLYCERIDES (test code = 2232) 1659 MG/DL HDL CHOLESTEROL (test code = 15 MG/DL 2219) CALC LDL CHOL (test code = 2237) NOTE MG/DL RISK RATIO LDL/HDL (test code = (NOTE) RATIO 2238) CBC W/AUTO [id number] 00:00:00 Test Item Value Reference Range Interpretation [...] code = 1015) 287 K/UL CBC W/AUTO [id number] 00:00:00 Test Item Value Reference Range Interpretation [...] (test code = 1015) 287 K/UL HEMOGLOBIN [id number] 00:00:00 Test Item Value Reference Range Interpretation Comments HEMOGLOBIN A1c (test code = 64639) 9.8 % HEMOGLOBIN [id number] 00:00:00 Test Item Value Reference Range Interpretation Comments HEMOGLOBIN A1c (test code = 59828) 9.8 % COMPREHENSIVE METABOLIC [id number] 00:00:00 Test Item Value Reference Range Interpretation Comments GLUCOSE (test code = 2217) 138 MG/DL BUN (test code = 2208) 13 MG/DL CREATININE (test code = 2214) 0.50 MG/DL eGFR AMER. (test code 141 ML/MIN/1.73 = 14538) eGFR NON- AMER. (test 122 ML/MIN/1.73 code = 33349) CALC BUN/CREAT (test code = 26 RATIO [...] code = 2219) 41 U/L COMPREHENSIVE METABOLIC [id number] 00:00:00 Test Item Value Reference Range Interpretation Comments GLUCOSE (test code = 2217) 138 MG/DL BUN (test code = 2208) 13 MG/DL CREATININE (test code = 2214) 0.50 MG/DL eGFR AMER. (test code 141 ML/MIN/1.73 = 06565) eGFR NON- AMER. (test 122 ML/MIN/1.73 code = 58665) CALC BUN/CREAT (test code = 26 RATIO [...] (test code = 2219) 41 U/L LIPID [id number] 00:00:00 Test Item Value Reference Range Interpretation Comments CHOLESTEROL (test code = 2210) 359 MG/DL TRIGLYCERIDES (test code = 2232) 1659 MG/DL HDL CHOLESTEROL (test code = 15 MG/DL 2220) CALC LDL CHOL (test code = 2237) NOTE MG/DL RISK RATIO LDL/HDL (test code = (NOTE) RATIO 2238) LIPID [id number] 00:00:00 Test Item Value Reference Range Interpretation Comments CHOLESTEROL (test code = 2210) 359 MG/DL TRIGLYCERIDES (test code = 2232) 1659 MG/DL HDL CHOLESTEROL (test code = 15 MG/DL 2220) CALC LDL CHOL (test code = 2237) NOTE MG/DL RISK RATIO LDL/HDL (test code = (NOTE) RATIO 2238) [id number] 00:00:00 Test Item Value Reference Range Interpretation Comments TSH (test code = 2821) 2.110 UIU/ML CBC W/AUTO [id number] 00:00:00 Test Item Value Reference Range Interpretation [...] code = 1015) 287 K/UL CBC W/AUTO [id number] 00:00:00 Test Item Value Reference Range Interpretation [...] code = 1015) 287 K/UL CBC W/AUTO [id number] 00:00:00 Test Item Value Reference Range Interpretation [...] (test code = 1015) 287 K/UL HEMOGLOBIN [id number] 00:00:00 Test Item Value Reference Range Interpretation Comments HEMOGLOBIN A1c (test code = 44724) 9.8 % HEMOGLOBIN [id number] 00:00:00 Test Item Value Reference Range Interpretation Comments HEMOGLOBIN A1c (test code = 77814) 9.8 % HEMOGLOBIN [id number] 00:00:00 Test Item Value Reference Range Interpretation Comments HEMOGLOBIN A1c (test code = 03404) 9.8 % [id number] 00:00:00 Test Item Value Reference Range Interpretation Comments TSH (test code = 2821) 2.110 UIU/ML [id number] 00:00:00 Test Item Value Reference Range Interpretation Comments TSH (test code = 2821) 2.110 UIU/ML [id number] 00:00:00 Test Item Value Reference Range Interpretation Comments TSH (test code = 2821) 2.110 UIU/ML [id number] 00:00:00 Test Item Value Reference Range Interpretation Comments TSH (test code = 2821) 2.110 UIU/ML COMPREHENSIVE METABOLIC [id number] 00:00:00 Test Item Value Reference Range Interpretation Comments GLUCOSE (test code = 2217) 138 MG/DL BUN (test code = 2208) 13 MG/DL CREATININE (test code = 2214) 0.50 MG/DL eGFR AMER. (test code 141 ML/MIN/1.73 = 00777) eGFR NON- AMER. (test 122 ML/MIN/1.73 code = 63081) CALC BUN/CREAT (test code = 26 RATIO [...] code = 2219) 41 U/L COMPREHENSIVE METABOLIC [id number] 00:00:00 Test Item Value Reference Range Interpretation Comments GLUCOSE (test code = 2217) 138 MG/DL BUN (test code = 2208) 13 MG/DL CREATININE (test code = 2214) 0.50 MG/DL eGFR AMER. (test code 141 ML/MIN/1.73 = 99409) eGFR NON- AMER. (test 122 ML/MIN/1.73 code = 45943) CALC BUN/CREAT (test code = 26 RATIO [...] (test code = 2219) 41 U/L LIPID [id number] 00:00:00 Test Item Value Reference Range Interpretation Comments CHOLESTEROL (test code = 2210) 359 MG/DL TRIGLYCERIDES (test code = 2232) 1659 MG/DL HDL CHOLESTEROL (test code = 15 MG/DL 2220) CALC LDL CHOL (test code = 2237) NOTE MG/DL RISK RATIO LDL/HDL (test code = (NOTE) RATIO 2238) LIPID [id number] 00:00:00 Test Item Value Reference Range Interpretation Comments CHOLESTEROL (test code = 2210) 359 MG/DL TRIGLYCERIDES (test code = 2232) 1659 MG/DL HDL CHOLESTEROL (test code = 15 MG/DL 2220) CALC LDL CHOL (test code = 2237) NOTE MG/DL RISK RATIO LDL/HDL (test code = (NOTE) RATIO 2238) CBC W/AUTO [id number] 00:00:00 Test Item Value Reference Range Interpretation [...] code = 1015) 287 K/UL CBC W/AUTO [id number] 00:00:00 Test Item Value Reference Range Interpretation [...] code = 1015) 287 K/UL CBC W/AUTO [id number] 00:00:00 Test Item Value Reference Range Interpretation [...] (test code = 1015) 287 K/UL HEMOGLOBIN [id number] 00:00:00 Test Item Value Reference Range Interpretation Comments HEMOGLOBIN A1c (test code = 07186) 9.8 % HEMOGLOBIN [id number] 00:00:00 Test Item Value Reference Range Interpretation Comments HEMOGLOBIN A1c (test code = 42844) 9.8 % HEMOGLOBIN [id number] 00:00:00 Test Item Value Reference Range Interpretation Comments HEMOGLOBIN A1c (test code = 12322) 9.8 % [id number] 00:00:00 Test Item Value Reference Range Interpretation Comments TSH (test code = 2821) 2.110 UIU/ML [id number] 00:00:00 Test Item Value Reference Range Interpretation Comments TSH (test code = 2821) 2.110 UIU/ML [id number] 00:00:00 Test Item Value Reference Range Interpretation Comments TSH (test code = 2821) 2.110 UIU/ML COMPREHENSIVE METABOLIC [id number] 00:00:00 Test Item Value Reference Range Interpretation Comments GLUCOSE (test code = 2217) 138 MG/DL BUN (test code = 2208) 13 MG/DL CREATININE (test code = 2214) 0.50 MG/DL eGFR AMER. (test code 141 ML/MIN/1.73 = 95474) eGFR NON- AMER. (test 122 ML/MIN/1.73 code = 27752) CALC BUN/CREAT (test code = 26 RATIO [...] code = 2219) 41 U/L COMPREHENSIVE METABOLIC [id number] 00:00:00 Test Item Value Reference Range Interpretation Comments GLUCOSE (test code = 2217) 138 MG/DL BUN (test code = 2208) 13 MG/DL CREATININE (test code = 2214) 0.50 MG/DL eGFR AMER. (test code 141 ML/MIN/1.73 = 98742) eGFR NON- AMER. (test 122 ML/MIN/1.73 code = 77007) CALC BUN/CREAT (test code = 26 RATIO [...] (test code = 2219) 41 U/L LIPID [id number] 00:00:00 Test Item Value Reference Range Interpretation Comments CHOLESTEROL (test code = 2210) 359 MG/DL TRIGLYCERIDES (test code = 2232) 1659 MG/DL HDL CHOLESTEROL (test code = 15 MG/DL 2220) CALC LDL CHOL (test code = 2237) NOTE MG/DL RISK RATIO LDL/HDL (test code = (NOTE) RATIO 2238) LIPID [id number] 00:00:00 Test Item Value Reference Range Interpretation Comments CHOLESTEROL (test code = 2210) 359 MG/DL TRIGLYCERIDES (test code = 2232) 1659 MG/DL HDL CHOLESTEROL (test code = 15 MG/DL 2220) CALC LDL CHOL (test code = 2237) NOTE MG/DL RISK RATIO LDL/HDL (test code = (NOTE) RATIO 2238) CBC W/AUTO [id number] 00:00:00 Test Item Value Reference Range Interpretation [...] code = 1015) 287 K/UL CBC W/AUTO [id number] 00:00:00 Test Item Value Reference Range Interpretation [...] code = 1015) 287 K/UL CBC W/AUTO [id number] 00:00:00 Test Item Value Reference Range Interpretation [...] (test code = 1015) 287 K/UL HEMOGLOBIN [id number] 00:00:00 Test Item Value Reference Range Interpretation Comments HEMOGLOBIN A1c (test code = 12062) 9.8 % HEMOGLOBIN [id number] 00:00:00 Test Item Value Reference Range Interpretation Comments HEMOGLOBIN A1c (test code = 16086) 9.8 % HEMOGLOBIN [id number] 00:00:00 Test Item Value Reference Range Interpretation Comments HEMOGLOBIN A1c (test code = 77172) 9.8 % [id number] 00:00:00 Test Item Value Reference Range Interpretation Comments TSH (test code = 2821) 2.110 UIU/ML [id number] 00:00:00 Test Item Value Reference Range Interpretation Comments TSH (test code = 2821) 2.110 UIU/ML [id number] 00:00:00 Test Item Value Reference Range Interpretation Comments TSH (test code = 2821) 2.110 UIU/ML LIPID [id number] 00:00:00 Test Item Value Reference Range Interpretation Comments CHOLESTEROL (test code = 2210) 195 MG/DL TRIGLYCERIDES (test code = 2232) 505 MG/DL HDL CHOLESTEROL (test code = 35 MG/DL 2220) CALC LDL CHOL (test code = 2237) NOTE MG/DL RISK RATIO LDL/HDL (test code = (NOTE) RATIO 2238) LIPID [id number] 00:00:00 Test Item Value Reference Range Interpretation [...] (test code = 2821) 2.000 UIU/ML LIPID [id number] 00:00:00 Test Item Value Reference Range Interpretation Comments CHOLESTEROL (test code = 2210) 195 MG/DL TRIGLYCERIDES (test code = 2232) 505 MG/DL HDL CHOLESTEROL (test code = 35 MG/DL 2220) CALC LDL CHOL (test code = 2237) NOTE MG/DL RISK RATIO LDL/HDL (test code = (NOTE) RATIO 2238) LIPID [id number] 00:00:00 Test Item Value Reference Range Interpretation [...] (test code = 2821) 2.000 UIU/ML LIPID [id number] 00:00:00 Test Item Value Reference Range Interpretation Comments CHOLESTEROL (test code = 2210) 195 MG/DL TRIGLYCERIDES (test code = 2232) 505 MG/DL HDL CHOLESTEROL (test code = 35 MG/DL 2220) CALC LDL CHOL (test code = 2237) NOTE MG/DL RISK RATIO LDL/HDL (test code = (NOTE) RATIO 2238) LIPID [id number] 00:00:00 Test Item Value Reference Range Interpretation [...] (test code = 2821) 2.000 UIU/ML LIPID [id number] 00:00:00 Test Item Value Reference Range Interpretation Comments CHOLESTEROL (test code = 2210) 195 MG/DL TRIGLYCERIDES (test code = 2232) 505 MG/DL HDL CHOLESTEROL (test code = 35 MG/DL 2220) CALC LDL CHOL (test code = 2237) NOTE MG/DL RISK RATIO LDL/HDL (test code = (NOTE) RATIO 2238) LIPID [id number] 00:00:00 Test Item Value Reference Range Interpretation [...] (test code = 2821) 2.000 UIU/ML LIPID [id number] 00:00:00 Test Item Value Reference Range Interpretation Comments CHOLESTEROL (test code = 2210) 195 MG/DL TRIGLYCERIDES (test code = 2232) 505 MG/DL HDL CHOLESTEROL (test code = 35 MG/DL 2220) CALC LDL CHOL (test code = 2237) NOTE MG/DL RISK RATIO LDL/HDL (test code = (NOTE) RATIO 2238) LIPID [id number] 00:00:00 Test Item Value Reference Range Interpretation [...] (test code = 2821) 2.000 UIU/ML LIPID [id number] 00:00:00 Test Item Value Reference Range Interpretation Comments CHOLESTEROL (test code = 2210) 195 MG/DL TRIGLYCERIDES (test code = 2232) 505 MG/DL HDL CHOLESTEROL (test code = 35 MG/DL 2220) CALC LDL CHOL (test code = 2237) NOTE MG/DL RISK RATIO LDL/HDL (test code = (NOTE) RATIO 2238) LIPID [id number] 00:00:00 Test Item Value Reference Range Interpretation [...] (test code = 2821) 2.000 UIU/ML LIPID [id number] 00:00:00 Test Item Value Reference Range Interpretation Comments CHOLESTEROL (test code = 2210) 195 MG/DL TRIGLYCERIDES (test code = 2232) 505 MG/DL HDL CHOLESTEROL (test code = 35 MG/DL 2220) CALC LDL CHOL (test code = 2237) NOTE MG/DL RISK RATIO LDL/HDL (test code = (NOTE) RATIO 2238) LIPID [id number] 00:00:00 Test Item Value Reference Range Interpretation [...] (test code = 2821) 2.000 UIU/ML LIPID [id number] 00:00:00 Test Item Value Reference Range Interpretation [...] (test code = 2821) 2.000 UIU/ML LIPID [id number] 00:00:00 Test Item Value Reference Range Interpretation Comments CHOLESTEROL (test code = 2210) 195 MG/DL TRIGLYCERIDES (test code = 2232) 505 MG/DL HDL CHOLESTEROL (test code = 35 MG/DL 2220) CALC LDL CHOL (test code = 2237) NOTE MG/DL RISK RATIO LDL/HDL (test code = (NOTE) RATIO 2238) LIPID [id number] 00:00:00 Test Item Value Reference Range Interpretation [...] (test code = 2821) 2.000 UIU/ML LIPID [id number] 00:00:00 Test Item Value Reference Range Interpretation Comments CHOLESTEROL (test code = 2210) 195 MG/DL TRIGLYCERIDES (test code = 2232) 505 MG/DL HDL CHOLESTEROL (test code = 35 MG/DL 2220) CALC LDL CHOL (test code = 2237) NOTE MG/DL RISK RATIO LDL/HDL (test code = (NOTE) RATIO 2238) LIPID [id number] 00:00:00 Test Item Value Reference Range Interpretation [...] (test code = 2821) 2.000 UIU/ML LIPID [id number] 00:00:00 Test Item Value Reference Range Interpretation Comments CHOLESTEROL (test code = 2210) 195 MG/DL TRIGLYCERIDES (test code = 2232) 505 MG/DL HDL CHOLESTEROL (test code = 35 MG/DL 2220) CALC LDL CHOL (test code = 2237) NOTE MG/DL RISK RATIO LDL/HDL (test code = (NOTE) RATIO 2238) LIPID [id number] 00:00:00 Test Item Value Reference Range Interpretation [...] code = 2821) 2.000 UIU/ML COMPREHENSIVE METABOLIC [id number] 00:00:00 Test Item Value Reference Range Interpretation Comments GLUCOSE (test code = 2217) 154 MG/DL BUN (test code = 2208) 12 MG/DL CREATININE (test code = 2214) 0.54 MG/DL eGFR AMER. (test code 139 ML/MIN/1.73 = 69558) eGFR NON- AMER. (test 120 ML/MIN/1.73 code = 80900) CALC BUN/CREAT (test code = 22 RATIO [...] code = 2219) 22 U/L COMPREHENSIVE METABOLIC [id number] 00:00:00 Test Item Value Reference Range Interpretation Comments GLUCOSE (test code = 2217) 154 MG/DL BUN (test code = 2208) 12 MG/DL CREATININE (test code = 2214) 0.54 MG/DL eGFR AMER. (test code 139 ML/MIN/1.73 = 24201) eGFR NON- AMER. (test 120 ML/MIN/1.73 code = 30730) CALC BUN/CREAT (test code = 22 RATIO [...] (test code = 2219) 22 U/L LIPID [id number] 00:00:00 Test Item Value Reference Range Interpretation Comments CHOLESTEROL (test code = 2210) 243 MG/DL TRIGLYCERIDES (test code = 2232) 1140 MG/DL HDL CHOLESTEROL (test code = 31 MG/DL 2220) CALC LDL CHOL (test code = 2237) NOTE MG/DL RISK RATIO LDL/HDL (test code = (NOTE) RATIO 2238) LIPID [id number] 00:00:00 Test Item Value Reference Range Interpretation Comments CHOLESTEROL (test code = 2210) 243 MG/DL TRIGLYCERIDES (test code = 2232) 1140 MG/DL HDL CHOLESTEROL (test code = 31 MG/DL 2220) CALC LDL CHOL (test code = 2237) NOTE MG/DL RISK RATIO LDL/HDL (test code = (NOTE) RATIO 2238) CBC W/AUTO [id number] 00:00:00 Test Item Value Reference Range Interpretation [...] code = 1015) 229 K/UL CBC W/AUTO [id number] 00:00:00 Test Item Value Reference Range Interpretation [...] code = 1015) 229 K/UL CBC W/AUTO [id number] 00:00:00 Test Item Value Reference Range Interpretation [...] (test code = 1015) 229 K/UL HEMOGLOBIN [id number] 00:00:00 Test Item Value Reference Range Interpretation Comments HEMOGLOBIN A1c (test code = 88079) 7.7 % HEMOGLOBIN [id number] 00:00:00 Test Item Value Reference Range Interpretation Comments HEMOGLOBIN A1c (test code = 49866) 7.7 % HEMOGLOBIN [id number] 00:00:00 Test Item Value Reference Range Interpretation Comments HEMOGLOBIN A1c (test code = 79647) 7.7 % COMPREHENSIVE METABOLIC [id number] 00:00:00 Test Item Value Reference Range Interpretation Comments GLUCOSE (test code = 2217) 154 MG/DL BUN (test code = 2208) 12 MG/DL CREATININE (test code = 2214) 0.54 MG/DL eGFR AMER. (test code 139 ML/MIN/1.73 = 35162) eGFR NON- AMER. (test 120 ML/MIN/1.73 code = 33667) CALC BUN/CREAT (test code = 22 RATIO [...] code = 2219) 22 U/L COMPREHENSIVE METABOLIC [id number] 00:00:00 Test Item Value Reference Range Interpretation Comments GLUCOSE (test code = 2217) 154 MG/DL BUN (test code = 2208) 12 MG/DL CREATININE (test code = 2214) 0.54 MG/DL eGFR AMER. (test code 139 ML/MIN/1.73 = 66539) eGFR NON- AMER. (test 120 ML/MIN/1.73 code = 21228) CALC BUN/CREAT (test code = 22 RATIO [...] (test code = 2219) 22 U/L LIPID [id number] 00:00:00 Test Item Value Reference Range Interpretation Comments CHOLESTEROL (test code = 2210) 243 MG/DL TRIGLYCERIDES (test code = 2232) 1140 MG/DL HDL CHOLESTEROL (test code = 31 MG/DL 0) CALC LDL CHOL (test code = 2237) NOTE MG/DL RISK RATIO LDL/HDL (test code = (NOTE) RATIO 2238) LIPID [id number] 00:00:00 Test Item Value Reference Range Interpretation Comments CHOLESTEROL (test code = 2210) 243 MG/DL TRIGLYCERIDES (test code = 2232) 1140 MG/DL HDL CHOLESTEROL (test code = 31 MG/DL 2220) CALC LDL CHOL (test code = 2237) NOTE MG/DL RISK RATIO LDL/HDL (test code = (NOTE) RATIO 2238) CBC W/AUTO [id number] 00:00:00 Test Item Value Reference Range Interpretation [...] code = 1015) 229 K/UL CBC W/AUTO [id number] 00:00:00 Test Item Value Reference Range Interpretation [...] code = 1015) 229 K/UL CBC W/AUTO [id number] 00:00:00 Test Item Value Reference Range Interpretation [...] (test code = 1015) 229 K/UL HEMOGLOBIN [id number] 00:00:00 Test Item Value Reference Range Interpretation Comments HEMOGLOBIN A1c (test code = 36053) 7.7 % HEMOGLOBIN [id number] 00:00:00 Test Item Value Reference Range Interpretation Comments HEMOGLOBIN A1c (test code = 13869) 7.7 % HEMOGLOBIN [id number] 00:00:00 Test Item Value Reference Range Interpretation Comments HEMOGLOBIN A1c (test code = 20986) 7.7 % COMPREHENSIVE METABOLIC [id number] 00:00:00 Test Item Value Reference Range Interpretation Comments GLUCOSE (test code = 2217) 154 MG/DL BUN (test code = 2208) 12 MG/DL CREATININE (test code = 2214) 0.54 MG/DL eGFR AMER. (test code 139 ML/MIN/1.73 = 03875) eGFR NON- AMER. (test 120 ML/MIN/1.73 code = 99564) CALC BUN/CREAT (test code = 22 RATIO [...] code = 2219) 22 U/L COMPREHENSIVE METABOLIC [id number] 00:00:00 Test Item Value Reference Range Interpretation Comments GLUCOSE (test code = 2217) 154 MG/DL BUN (test code = 2208) 12 MG/DL CREATININE (test code = 2214) 0.54 MG/DL eGFR AMER. (test code 139 ML/MIN/1.73 = 26693) eGFR NON- AMER. (test 120 ML/MIN/1.73 code = 92771) CALC BUN/CREAT (test code = 22 RATIO [...] (test code = 2219) 22 U/L LIPID [id number] 00:00:00 Test Item Value Reference Range Interpretation Comments CHOLESTEROL (test code = 2210) 243 MG/DL TRIGLYCERIDES (test code = 2232) 1140 MG/DL HDL CHOLESTEROL (test code = 31 MG/DL 2220) CALC LDL CHOL (test code = 2237) NOTE MG/DL RISK RATIO LDL/HDL (test code = (NOTE) RATIO 2238) LIPID [id number] 00:00:00 Test Item Value Reference Range Interpretation Comments CHOLESTEROL (test code = 2210) 243 MG/DL TRIGLYCERIDES (test code = 2232) 1140 MG/DL HDL CHOLESTEROL (test code = 31 MG/DL 2220) CALC LDL CHOL (test code = 2237) NOTE MG/DL RISK RATIO LDL/HDL (test code = (NOTE) RATIO 2238) CBC W/AUTO [id number] 00:00:00 Test Item Value Reference Range Interpretation [...] code = 1015) 229 K/UL CBC W/AUTO [id number] 00:00:00 Test Item Value Reference Range Interpretation [...] code = 1015) 229 K/UL CBC W/AUTO [id number] 00:00:00 Test Item Value Reference Range Interpretation [...] (test code = 1015) 229 K/UL HEMOGLOBIN [id number] 00:00:00 Test Item Value Reference Range Interpretation Comments HEMOGLOBIN A1c (test code = 86890) 7.7 % HEMOGLOBIN [id number] 00:00:00 Test Item Value Reference Range Interpretation Comments HEMOGLOBIN A1c (test code = 83481) 7.7 % HEMOGLOBIN [id number] 00:00:00 Test Item Value Reference Range Interpretation Comments HEMOGLOBIN A1c (test code = 60807) 7.7 % COMPREHENSIVE METABOLIC [id number] 00:00:00 Test Item Value Reference Range Interpretation Comments GLUCOSE (test code = 2217) 154 MG/DL BUN (test code = 2208) 12 MG/DL CREATININE (test code = 2214) 0.54 MG/DL eGFR AMER. (test code 139 ML/MIN/1.73 = 10107) eGFR NON- AMER. (test 120 ML/MIN/1.73 code = 16253) CALC BUN/CREAT (test code = 22 RATIO [...] code = 2219) 22 U/L COMPREHENSIVE METABOLIC [id number] 00:00:00 Test Item Value Reference Range Interpretation Comments GLUCOSE (test code = 2217) 154 MG/DL BUN (test code = 2208) 12 MG/DL CREATININE (test code = 2214) 0.54 MG/DL eGFR AMER. (test code 139 ML/MIN/1.73 = 42514) eGFR NON- AMER. (test 120 ML/MIN/1.73 code = 08625) CALC BUN/CREAT (test code = 22 RATIO [...] (test code = 2219) 22 U/L LIPID [id number] 00:00:00 Test Item Value Reference Range Interpretation Comments CHOLESTEROL (test code = 2210) 243 MG/DL TRIGLYCERIDES (test code = 2232) 1140 MG/DL HDL CHOLESTEROL (test code = 31 MG/DL 2220) CALC LDL CHOL (test code = 2237) NOTE MG/DL RISK RATIO LDL/HDL (test code = (NOTE) RATIO 2238) LIPID [id number] 00:00:00 Test Item Value Reference Range Interpretation Comments CHOLESTEROL (test code = 2210) 243 MG/DL TRIGLYCERIDES (test code = 2232) 1140 MG/DL HDL CHOLESTEROL (test code = 31 MG/DL 2220) CALC LDL CHOL (test code = 2237) NOTE MG/DL RISK RATIO LDL/HDL (test code = (NOTE) RATIO 2238) CBC W/AUTO [id number] 00:00:00 Test Item Value Reference Range Interpretation [...] code = 1015) 229 K/UL CBC W/AUTO [id number] 00:00:00 Test Item Value Reference Range Interpretation [...] code = 1015) 229 K/UL CBC W/AUTO [id number] 00:00:00 Test Item Value Reference Range Interpretation [...] (test code = 1015) 229 K/UL HEMOGLOBIN [id number] 00:00:00 Test Item Value Reference Range Interpretation Comments HEMOGLOBIN A1c (test code = 75099) 7.7 % HEMOGLOBIN [id number] 00:00:00 Test Item Value Reference Range Interpretation Comments HEMOGLOBIN A1c (test code = 42635) 7.7 % HEMOGLOBIN [id number] 00:00:00 Test Item Value Reference Range Interpretation Comments HEMOGLOBIN A1c (test code = 10270) 7.7 % COMPREHENSIVE METABOLIC [id number] 00:00:00 Test Item Value Reference Range Interpretation Comments GLUCOSE (test code = 2217) 154 MG/DL BUN (test code = 2208) 12 MG/DL CREATININE (test code = 2214) 0.54 MG/DL eGFR AMER. (test code 139 ML/MIN/1.73 = 92179) eGFR NON- AMER. (test 120 ML/MIN/1.73 code = 27369) CALC BUN/CREAT (test code = 22 RATIO [...] code = 2219) 22 U/L COMPREHENSIVE METABOLIC [id number] 00:00:00 Test Item Value Reference Range Interpretation Comments GLUCOSE (test code = 2217) 154 MG/DL BUN (test code = 2208) 12 MG/DL CREATININE (test code = 2214) 0.54 MG/DL eGFR AMER. (test code 139 ML/MIN/1.73 = 38860) eGFR NON- AMER. (test 120 ML/MIN/1.73 code = 04838) CALC BUN/CREAT (test code = 22 RATIO [...] (test code = 2219) 22 U/L LIPID [id number] 00:00:00 Test Item Value Reference Range Interpretation Comments CHOLESTEROL (test code = 2210) 243 MG/DL TRIGLYCERIDES (test code = 2232) 1140 MG/DL HDL CHOLESTEROL (test code = 31 MG/DL 2220) CALC LDL CHOL (test code = 2237) NOTE MG/DL RISK RATIO LDL/HDL (test code = (NOTE) RATIO 2238) LIPID [id number] 00:00:00 Test Item Value Reference Range Interpretation Comments CHOLESTEROL (test code = 2210) 243 MG/DL TRIGLYCERIDES (test code = 2232) 1140 MG/DL HDL CHOLESTEROL (test code = 31 MG/DL 2220) CALC LDL CHOL (test code = 2237) NOTE MG/DL RISK RATIO LDL/HDL (test code = (NOTE) RATIO 2238) CBC W/AUTO [id number] 00:00:00 Test Item Value Reference Range Interpretation [...] code = 1015) 229 K/UL CBC W/AUTO [id number] 00:00:00 Test Item Value Reference Range Interpretation [...] code = 1015) 229 K/UL CBC W/AUTO [id number] 00:00:00 Test Item Value Reference Range Interpretation [...] (test code = 1015) 229 K/UL HEMOGLOBIN [id number] 00:00:00 Test Item Value Reference Range Interpretation Comments HEMOGLOBIN A1c (test code = 42893) 7.7 % HEMOGLOBIN [id number] 00:00:00 Test Item Value Reference Range Interpretation Comments HEMOGLOBIN A1c (test code = 46154) 7.7 % HEMOGLOBIN [id number] 00:00:00 Test Item Value Reference Range Interpretation Comments HEMOGLOBIN A1c (test code = 14268) 7.7 % COMPREHENSIVE METABOLIC [id number] 00:00:00 Test Item Value Reference Range Interpretation Comments GLUCOSE (test code = 2217) 154 MG/DL BUN (test code = 2208) 12 MG/DL CREATININE (test code = 2214) 0.54 MG/DL eGFR AMER. (test code 139 ML/MIN/1.73 = 81171) eGFR NON- AMER. (test 120 ML/MIN/1.73 code = 88700) CALC BUN/CREAT (test code = 22 RATIO [...] code = 2219) 22 U/L COMPREHENSIVE METABOLIC [id number] 00:00:00 Test Item Value Reference Range Interpretation Comments GLUCOSE (test code = 2217) 154 MG/DL BUN (test code = 2208) 12 MG/DL CREATININE (test code = 2214) 0.54 MG/DL eGFR AMER. (test code 139 ML/MIN/1.73 = 92176) eGFR NON- AMER. (test 120 ML/MIN/1.73 code = 59491) CALC BUN/CREAT (test code = 22 RATIO [...] (test code = 2219) 22 U/L LIPID [id number] 00:00:00 Test Item Value Reference Range Interpretation Comments CHOLESTEROL (test code = 2210) 243 MG/DL TRIGLYCERIDES (test code = 2232) 1140 MG/DL HDL CHOLESTEROL (test code = 31 MG/DL 2220) CALC LDL CHOL (test code = 2237) NOTE MG/DL RISK RATIO LDL/HDL (test code = (NOTE) RATIO 2238) LIPID [id number] 00:00:00 Test Item Value Reference Range Interpretation Comments CHOLESTEROL (test code = 2210) 243 MG/DL TRIGLYCERIDES (test code = 2232) 1140 MG/DL HDL CHOLESTEROL (test code = 31 MG/DL 2220) CALC LDL CHOL (test code = 2237) NOTE MG/DL RISK RATIO LDL/HDL (test code = (NOTE) RATIO 2238) CBC W/AUTO [id number] 00:00:00 Test Item Value Reference Range Interpretation [...] code = 1015) 229 K/UL CBC W/AUTO [id number] 00:00:00 Test Item Value Reference Range Interpretation [...] code = 1015) 229 K/UL CBC W/AUTO [id number] 00:00:00 Test Item Value Reference Range Interpretation [...] (test code = 1015) 229 K/UL HEMOGLOBIN [id number] 00:00:00 Test Item Value Reference Range Interpretation Comments HEMOGLOBIN A1c (test code = 93970) 7.7 % HEMOGLOBIN [id number] 00:00:00 Test Item Value Reference Range Interpretation Comments HEMOGLOBIN A1c (test code = 95612) 7.7 % HEMOGLOBIN [id number] 00:00:00 Test Item Value Reference Range Interpretation Comments HEMOGLOBIN A1c (test code = 01376) 7.7 % COMPREHENSIVE METABOLIC [id number] 00:00:00 Test Item Value Reference Range Interpretation Comments GLUCOSE (test code = 2217) 154 MG/DL BUN (test code = 2208) 12 MG/DL CREATININE (test code = 2214) 0.54 MG/DL eGFR AMER. (test code 139 ML/MIN/1.73 = 17251) eGFR NON- AMER. (test 120 ML/MIN/1.73 code = 34986) CALC BUN/CREAT (test code = 22 RATIO [...] code = 2219) 22 U/L COMPREHENSIVE METABOLIC [id number] 00:00:00 Test Item Value Reference Range Interpretation Comments GLUCOSE (test code = 2217) 154 MG/DL BUN (test code = 2208) 12 MG/DL CREATININE (test code = 2214) 0.54 MG/DL eGFR AMER. (test code 139 ML/MIN/1.73 = 77442) eGFR NON- AMER. (test 120 ML/MIN/1.73 code = 26484) CALC BUN/CREAT (test code = 22 RATIO [...] (test code = 2219) 22 U/L LIPID [id number] 00:00:00 Test Item Value Reference Range Interpretation Comments CHOLESTEROL (test code = 2210) 243 MG/DL TRIGLYCERIDES (test code = 2232) 1140 MG/DL HDL CHOLESTEROL (test code = 31 MG/DL 0) CALC LDL CHOL (test code = 2237) NOTE MG/DL RISK RATIO LDL/HDL (test code = (NOTE) RATIO 2238) COMPREHENSIVE METABOLIC [id number] 00:00:00 Test Item Value Reference Range Interpretation Comments GLUCOSE (test code = 2217) 154 MG/DL BUN (test code = 2208) 12 MG/DL CREATININE (test code = 2214) 0.54 MG/DL eGFR AMER. (test code 139 ML/MIN/1.73 = 06764) eGFR NON- AMER. (test 120 ML/MIN/1.73 code = 36926) CALC BUN/CREAT (test code = 22 RATIO [...] (test code = 2219) 22 U/L LIPID [id number] 00:00:00 Test Item Value Reference Range Interpretation Comments CHOLESTEROL (test code = 2210) 243 MG/DL TRIGLYCERIDES (test code = 2232) 1140 MG/DL HDL CHOLESTEROL (test code = 31 MG/DL 2220) CALC LDL CHOL (test code = 2237) NOTE MG/DL RISK RATIO LDL/HDL (test code = (NOTE) RATIO 2238) CBC W/AUTO [id number] 00:00:00 Test Item Value Reference Range Interpretation [...] code = 1015) 229 K/UL CBC W/AUTO [id number] 00:00:00 Test Item Value Reference Range Interpretation [...] code = 1015) 229 K/UL CBC W/AUTO [id number] 00:00:00 Test Item Value Reference Range Interpretation [...] (test code = 1015) 229 K/UL HEMOGLOBIN [id number] 00:00:00 Test Item Value Reference Range Interpretation Comments HEMOGLOBIN A1c (test code = 44525) 7.7 % HEMOGLOBIN [id number] 00:00:00 Test Item Value Reference Range Interpretation Comments HEMOGLOBIN A1c (test code = 35486) 7.7 % HEMOGLOBIN [id number] 00:00:00 Test Item Value Reference Range Interpretation Comments HEMOGLOBIN A1c (test code = 46159) 7.7 % LIPID [id number] 00:00:00 Test Item Value Reference Range Interpretation Comments CHOLESTEROL (test code = 2210) 243 MG/DL TRIGLYCERIDES (test code = 2232) 1140 MG/DL HDL CHOLESTEROL (test code = 31 MG/DL 2220) CALC LDL CHOL (test code = 2237) NOTE MG/DL RISK RATIO LDL/HDL (test code = (NOTE) RATIO 2238) CBC W/AUTO [id number] 00:00:00 Test Item Value Reference Range Interpretation [...] code = 1015) 229 K/UL CBC W/AUTO [id number] 00:00:00 Test Item Value Reference Range Interpretation [...] code = 1015) 229 K/UL COMPREHENSIVE METABOLIC [id number] 00:00:00 Test Item Value Reference Range Interpretation Comments GLUCOSE (test code = 2217) 154 MG/DL BUN (test code = 2208) 12 MG/DL CREATININE (test code = 2214) 0.54 MG/DL eGFR AMER. (test code 139 ML/MIN/1.73 = 77433) eGFR NON- AMER. (test 120 ML/MIN/1.73 code = 61578) CALC BUN/CREAT (test code = 22 RATIO [...] code = 2219) 22 U/L COMPREHENSIVE METABOLIC [id number] 00:00:00 Test Item Value Reference Range Interpretation Comments GLUCOSE (test code = 2217) 154 MG/DL BUN (test code = 2208) 12 MG/DL CREATININE (test code = 2214) 0.54 MG/DL eGFR AMER. (test code 139 ML/MIN/1.73 = 40093) eGFR NON- AMER. (test 120 ML/MIN/1.73 code = 47918) CALC BUN/CREAT (test code = 22 RATIO [...] (test code = 2219) 22 U/L HEMOGLOBIN [id number] 00:00:00 Test Item Value Reference Range Interpretation Comments HEMOGLOBIN A1c (test code = 07599) 7.7 % LIPID [id number] 00:00:00 Test Item Value Reference Range Interpretation Comments CHOLESTEROL (test code = 2210) 243 MG/DL TRIGLYCERIDES (test code = 2232) 1140 MG/DL HDL CHOLESTEROL (test code = 31 MG/DL 2220) CALC LDL CHOL (test code = 2237) NOTE MG/DL RISK RATIO LDL/HDL (test code = (NOTE) RATIO 2238) LIPID [id number] 00:00:00 Test Item Value Reference Range Interpretation Comments CHOLESTEROL (test code = 2210) 243 MG/DL TRIGLYCERIDES (test code = 2232) 1140 MG/DL HDL CHOLESTEROL (test code = 31 MG/DL 2220) CALC LDL CHOL (test code = 2237) NOTE MG/DL RISK RATIO LDL/HDL (test code = (NOTE) RATIO 2238) HEMOGLOBIN [id number] 00:00:00 Test Item Value Reference Range Interpretation Comments HEMOGLOBIN A1c (test code = 67550) 7.7 % CBC W/AUTO [id number] 00:00:00 Test Item Value Reference Range Interpretation [...] code = 1015) 229 K/UL CBC W/AUTO [id number] 00:00:00 Test Item Value Reference Range Interpretation [...] code = 1015) 229 K/UL CBC W/AUTO [id number] 00:00:00 Test Item Value Reference Range Interpretation [...] (test code = 1015) 229 K/UL HEMOGLOBIN [id number] 00:00:00 Test Item Value Reference Range Interpretation Comments HEMOGLOBIN A1c (test code = 16981) 7.7 % HEMOGLOBIN [id number] 00:00:00 Test Item Value Reference Range Interpretation Comments HEMOGLOBIN A1c (test code = 94757) 7.7 % HEMOGLOBIN [id number] 00:00:00 Test Item Value Reference Range Interpretation Comments HEMOGLOBIN A1c (test code = 09201) 7.7 % COMPREHENSIVE METABOLIC [id number] 00:00:00 Test Item Value Reference Range Interpretation Comments GLUCOSE (test code = 2217) 154 MG/DL BUN (test code = 2208) 12 MG/DL CREATININE (test code = 2214) 0.54 MG/DL eGFR AMER. (test code 139 ML/MIN/1.73 = 06439) eGFR NON- AMER. (test 120 ML/MIN/1.73 code = 11151) CALC BUN/CREAT (test code = 22 RATIO [...] ALKALINE PHOSPHATASE (test 42 U/L code = 2203) AST (test code = 2218) 17 U/L ALT (test code = 2219) 22 U/L COMPREHENSIVE METABOLIC [id number] 00:00:00 Test Item Value Reference Range Interpretation Comments GLUCOSE (test code = 2217) 154 MG/DL BUN (test code = 2208) 12 MG/DL CREATININE (test code = 2214) 0.54 MG/DL eGFR AMER. (test code 139 ML/MIN/1.73 = 39326) eGFR NON- AMER. (test 120 ML/MIN/1.73 code = 44344) CALC BUN/CREAT (test code = 22 RATIO [...] (test code = 2219) 22 U/L LIPID [id number] 00:00:00 Test Item Value Reference Range Interpretation Comments CHOLESTEROL (test code = 2210) 243 MG/DL TRIGLYCERIDES (test code = 2232) 1140 MG/DL HDL CHOLESTEROL (test code = 31 MG/DL 2220) CALC LDL CHOL (test code = 2237) NOTE MG/DL RISK RATIO LDL/HDL (test code = (NOTE) RATIO 2238) LIPID [id number] 00:00:00 Test Item Value Reference Range Interpretation Comments CHOLESTEROL (test code = 2210) 243 MG/DL TRIGLYCERIDES (test code = 2232) 1140 MG/DL HDL CHOLESTEROL (test code = 31 MG/DL 2220) CALC LDL CHOL (test code = 2237) NOTE MG/DL RISK RATIO LDL/HDL (test code = (NOTE) RATIO 2238) CBC W/AUTO [id number] 00:00:00 Test Item Value Reference Range Interpretation [...] code = 1015) 229 K/UL CBC W/AUTO [id number] 00:00:00 Test Item Value Reference Range Interpretation [...] code = 1015) 229 K/UL CBC W/AUTO [id number] 00:00:00 Test Item Value Reference Range Interpretation [...] (test code = 1015) 229 K/UL HEMOGLOBIN [id number] 00:00:00 Test Item Value Reference Range Interpretation Comments HEMOGLOBIN A1c (test code = 10423) 7.7 % HEMOGLOBIN [id number] 00:00:00 Test Item Value Reference Range Interpretation Comments HEMOGLOBIN A1c (test code = 39026) 7.7 % HEMOGLOBIN [id number] 00:00:00 Test Item Value Reference Range Interpretation Comments HEMOGLOBIN A1c (test code = 55415) 7.7 % COMPREHENSIVE METABOLIC [id number] 00:00:00 Test Item Value Reference Range Interpretation Comments GLUCOSE (test code = 2217) 154 MG/DL BUN (test code = 2208) 12 MG/DL CREATININE (test code = 2214) 0.54 MG/DL eGFR AMER. (test code 139 ML/MIN/1.73 = 70661) eGFR NON- AMER. (test 120 ML/MIN/1.73 code = 97990) CALC BUN/CREAT (test code = 22 RATIO [...] code = 2219) 22 U/L COMPREHENSIVE METABOLIC [id number] 00:00:00 Test Item Value Reference Range Interpretation Comments GLUCOSE (test code = 2217) 154 MG/DL BUN (test code = 2208) 12 MG/DL CREATININE (test code = 2214) 0.54 MG/DL eGFR AMER. (test code 139 ML/MIN/1.73 = 40521) eGFR NON- AMER. (test 120 ML/MIN/1.73 code = 44766) CALC BUN/CREAT (test code = 22 RATIO [...] (test code = 2219) 22 U/L LIPID [id number] 00:00:00 Test Item Value Reference Range Interpretation Comments CHOLESTEROL (test code = 2210) 243 MG/DL TRIGLYCERIDES (test code = 2232) 1140 MG/DL HDL CHOLESTEROL (test code = 31 MG/DL 2220) CALC LDL CHOL (test code = 2237) NOTE MG/DL RISK RATIO LDL/HDL (test code = (NOTE) RATIO 2238) LIPID [id number] 00:00:00 Test Item Value Reference Range Interpretation Comments CHOLESTEROL (test code = 2210) 243 MG/DL TRIGLYCERIDES (test code = 2232) 1140 MG/DL HDL CHOLESTEROL (test code = 31 MG/DL 2220) CALC LDL CHOL (test code = 2237) NOTE MG/DL RISK RATIO LDL/HDL (test code = (NOTE) RATIO 2238) CBC W/AUTO [id number] 00:00:00 Test Item Value Reference Range Interpretation [...] code = 1015) 229 K/UL CBC W/AUTO [id number] 00:00:00 Test Item Value Reference Range Interpretation [...] code = 1015) 229 K/UL CBC W/AUTO [id number] 00:00:00 Test Item Value Reference Range Interpretation [...] (test code = 1015) 229 K/UL HEMOGLOBIN [id number] 00:00:00 Test Item Value Reference Range Interpretation Comments HEMOGLOBIN A1c (test code = 64706) 7.7 % HEMOGLOBIN [id number] 00:00:00 Test Item Value Reference Range Interpretation Comments HEMOGLOBIN A1c (test code = 92742) 7.7 % HEMOGLOBIN [id number] 00:00:00 Test Item Value Reference Range Interpretation Comments HEMOGLOBIN A1c (test code = 20219) 7.7 % [id number] 00:00:00 Test Item Value Reference Range Interpretation Comments MAGNESIUM (test code = 2226) 1.4 MG/DL [id number] 00:00:00 Test Item Value Reference Range Interpretation Comments MAGNESIUM (test code = 2226) 1.4 MG/DL [id number] 00:00:00 Test Item Value Reference Range Interpretation Comments MAGNESIUM (test code = 2226) 1.4 MG/DL COMPREHENSIVE METABOLIC [id number] 00:00:00 Test Item Value Reference Range Interpretation Comments GLUCOSE (test code = 2217) 234 MG/DL BUN (test code = 2208) 17 MG/DL CREATININE (test code = 2214) 0.54 MG/DL eGFR AMER. (test code 139 ML/MIN/1.73 = 87492) eGFR NON- AMER. (test 120 ML/MIN/1.73 code = 35171) CALC BUN/CREAT (test code = 31 RATIO [...] code = 2219) 22 U/L COMPREHENSIVE METABOLIC [id number] 00:00:00 Test Item Value Reference Range Interpretation Comments GLUCOSE (test code = 2217) 234 MG/DL BUN (test code = 2208) 17 MG/DL CREATININE (test code = 2214) 0.54 MG/DL eGFR AMER. (test code 139 ML/MIN/1.73 = 43498) eGFR NON- AMER. (test 120 ML/MIN/1.73 code = 46801) CALC BUN/CREAT (test code = 31 RATIO [...] (test code = 2219) 22 U/L HEMOGLOBIN [id number] 00:00:00 Test Item Value Reference Range Interpretation Comments HEMOGLOBIN A1c (test code = 89369) 7.7 % HEMOGLOBIN [id number] 00:00:00 Test Item Value Reference Range Interpretation Comments HEMOGLOBIN A1c (test code = 38937) 7.7 % HEMOGLOBIN [id number] 00:00:00 Test Item Value Reference Range Interpretation Comments HEMOGLOBIN A1c (test code = 32851) 7.7 % CBC W/AUTO [id number] 00:00:00 Test Item Value Reference Range Interpretation [...] code = 1015) 224 K/UL CBC W/AUTO [id number] 00:00:00 Test Item Value Reference Range Interpretation [...] code = 1015) 224 K/UL CBC W/AUTO [id number] 00:00:00 Test Item Value Reference Range Interpretation [...] TSH (test code = 2821) <0.10 UIU/ML [id number] 00:00:00 Test Item Value Reference Range Interpretation Comments MAGNESIUM (test code = 2226) 1.4 MG/DL [id number] 00:00:00 Test Item Value Reference Range Interpretation Comments MAGNESIUM (test code = 2226) 1.4 MG/DL [id number] 00:00:00 Test Item Value Reference Range Interpretation Comments MAGNESIUM (test code = 2226) 1.4 MG/DL COMPREHENSIVE METABOLIC [id number] 00:00:00 Test Item Value Reference Range Interpretation Comments GLUCOSE (test code = 2217) 234 MG/DL BUN (test code = 2208) 17 MG/DL CREATININE (test code = 2214) 0.54 MG/DL eGFR AMER. (test code 139 ML/MIN/1.73 = 81133) eGFR NON- AMER. (test 120 ML/MIN/1.73 code = 91869) CALC BUN/CREAT (test code = 31 RATIO [...] code = 2219) 22 U/L COMPREHENSIVE METABOLIC [id number] 00:00:00 Test Item Value Reference Range Interpretation Comments GLUCOSE (test code = 2217) 234 MG/DL BUN (test code = 2208) 17 MG/DL CREATININE (test code = 2214) 0.54 MG/DL eGFR AMER. (test code 139 ML/MIN/1.73 = 21325) eGFR NON- AMER. (test 120 ML/MIN/1.73 code = 71273) CALC BUN/CREAT (test code = 31 RATIO [...] (test code = 2219) 22 U/L HEMOGLOBIN [id number] 00:00:00 Test Item Value Reference Range Interpretation Comments HEMOGLOBIN A1c (test code = 63521) 7.7 % HEMOGLOBIN [id number] 00:00:00 Test Item Value Reference Range Interpretation Comments HEMOGLOBIN A1c (test code = 96332) 7.7 % HEMOGLOBIN [id number] 00:00:00 Test Item Value Reference Range Interpretation Comments HEMOGLOBIN A1c (test code = 54659) 7.7 % CBC W/AUTO [id number] 00:00:00 Test Item Value Reference Range Interpretation [...] code = 1015) 224 K/UL CBC W/AUTO [id number] 00:00:00 Test Item Value Reference Range Interpretation [...] code = 1015) 224 K/UL CBC W/AUTO [id number] 00:00:00 Test Item Value Reference Range Interpretation [...] TSH (test code = 2821) <0.10 UIU/ML [id number] 00:00:00 Test Item Value Reference Range Interpretation Comments MAGNESIUM (test code = 2226) 1.4 MG/DL [id number] 00:00:00 Test Item Value Reference Range Interpretation Comments MAGNESIUM (test code = 2226) 1.4 MG/DL [id number] 00:00:00 Test Item Value Reference Range Interpretation Comments MAGNESIUM (test code = 2226) 1.4 MG/DL COMPREHENSIVE METABOLIC [id number] 00:00:00 Test Item Value Reference Range Interpretation Comments GLUCOSE (test code = 2217) 234 MG/DL BUN (test code = 2208) 17 MG/DL CREATININE (test code = 2214) 0.54 MG/DL eGFR AMER. (test code 139 ML/MIN/1.73 = 68018) eGFR NON- AMER. (test 120 ML/MIN/1.73 code = 06751) CALC BUN/CREAT (test code = 31 RATIO [...] code = 2219) 22 U/L COMPREHENSIVE METABOLIC [id number] 00:00:00 Test Item Value Reference Range Interpretation Comments GLUCOSE (test code = 2217) 234 MG/DL BUN (test code = 2208) 17 MG/DL CREATININE (test code = 2214) 0.54 MG/DL eGFR AMER. (test code 139 ML/MIN/1.73 = 36497) eGFR NON- AMER. (test 120 ML/MIN/1.73 code = 56941) CALC BUN/CREAT (test code = 31 RATIO [...] (test code = 2219) 22 U/L HEMOGLOBIN [id number] 00:00:00 Test Item Value Reference Range Interpretation Comments HEMOGLOBIN A1c (test code = 22671) 7.7 % HEMOGLOBIN [id number] 00:00:00 Test Item Value Reference Range Interpretation Comments HEMOGLOBIN A1c (test code = 61785) 7.7 % HEMOGLOBIN [id number] 00:00:00 Test Item Value Reference Range Interpretation Comments HEMOGLOBIN A1c (test code = 83021) 7.7 % CBC W/AUTO [id number] 00:00:00 Test Item Value Reference Range Interpretation [...] code = 1015) 224 K/UL CBC W/AUTO [id number] 00:00:00 Test Item Value Reference Range Interpretation [...] code = 1015) 224 K/UL CBC W/AUTO [id number] 00:00:00 Test Item Value Reference Range Interpretation [...] TSH (test code = 2821) <0.10 UIU/ML [id number] 00:00:00 Test Item Value Reference Range Interpretation Comments MAGNESIUM (test code = 2226) 1.4 MG/DL [id number] 00:00:00 Test Item Value Reference Range Interpretation Comments MAGNESIUM (test code = 2226) 1.4 MG/DL [id number] 00:00:00 Test Item Value Reference Range Interpretation Comments MAGNESIUM (test code = 2226) 1.4 MG/DL COMPREHENSIVE METABOLIC [id number] 00:00:00 Test Item Value Reference Range Interpretation Comments GLUCOSE (test code = 2217) 234 MG/DL BUN (test code = 2208) 17 MG/DL CREATININE (test code = 2214) 0.54 MG/DL eGFR AMER. (test code 139 ML/MIN/1.73 = 41523) eGFR NON- AMER. (test 120 ML/MIN/1.73 code = 53433) CALC BUN/CREAT (test code = 31 RATIO [...] code = 2219) 22 U/L COMPREHENSIVE METABOLIC [id number] 00:00:00 Test Item Value Reference Range Interpretation Comments GLUCOSE (test code = 2217) 234 MG/DL BUN (test code = 2208) 17 MG/DL CREATININE (test code = 2214) 0.54 MG/DL eGFR AMER. (test code 139 ML/MIN/1.73 = 99045) eGFR NON- AMER. (test 120 ML/MIN/1.73 code = 84401) CALC BUN/CREAT (test code = 31 RATIO [...] (test code = 2219) 22 U/L HEMOGLOBIN [id number] 00:00:00 Test Item Value Reference Range Interpretation Comments HEMOGLOBIN A1c (test code = 10185) 7.7 % HEMOGLOBIN [id number] 00:00:00 Test Item Value Reference Range Interpretation Comments HEMOGLOBIN A1c (test code = 09231) 7.7 % HEMOGLOBIN [id number] 00:00:00 Test Item Value Reference Range Interpretation Comments HEMOGLOBIN A1c (test code = 42652) 7.7 % CBC W/AUTO [id number] 00:00:00 Test Item Value Reference Range Interpretation [...] code = 1015) 224 K/UL CBC W/AUTO [id number] 00:00:00 Test Item Value Reference Range Interpretation [...] code = 1015) 224 K/UL CBC W/AUTO [id number] 00:00:00 Test Item Value Reference Range Interpretation [...] CALCULATED T7 (FTI) (test code = 0.91 6990) TSH (test code = 2821) <0.10 UIU/ML [id number] 00:00:00 Test Item Value Reference Range Interpretation Comments MAGNESIUM (test code = 2226) 1.4 MG/DL [id number] 00:00:00 Test Item Value Reference Range Interpretation Comments MAGNESIUM (test code = 2226) 1.4 MG/DL [id number] 00:00:00 Test Item Value Reference Range Interpretation Comments MAGNESIUM (test code = 2226) 1.4 MG/DL COMPREHENSIVE METABOLIC [id number] 00:00:00 Test Item Value Reference Range Interpretation Comments GLUCOSE (test code = 2217) 234 MG/DL BUN (test code = 2208) 17 MG/DL CREATININE (test code = 2214) 0.54 MG/DL eGFR AMER. (test code 139 ML/MIN/1.73 = 74202) eGFR NON- AMER. (test 120 ML/MIN/1.73 code = 62145) CALC BUN/CREAT (test code = 31 RATIO [...] code = 2219) 22 U/L COMPREHENSIVE METABOLIC [id number] 00:00:00 Test Item Value Reference Range Interpretation Comments GLUCOSE (test code = 2217) 234 MG/DL BUN (test code = 2208) 17 MG/DL CREATININE (test code = 2214) 0.54 MG/DL eGFR AMER. (test code 139 ML/MIN/1.73 = 41553) eGFR NON- AMER. (test 120 ML/MIN/1.73 code = 43292) CALC BUN/CREAT (test code = 31 RATIO [...] (test code = 2219) 22 U/L HEMOGLOBIN [id number] 00:00:00 Test Item Value Reference Range Interpretation Comments HEMOGLOBIN A1c (test code = 78506) 7.7 % HEMOGLOBIN [id number] 00:00:00 Test Item Value Reference Range Interpretation Comments HEMOGLOBIN A1c (test code = 65751) 7.7 % HEMOGLOBIN [id number] 00:00:00 Test Item Value Reference Range Interpretation Comments HEMOGLOBIN A1c (test code = 09789) 7.7 % CBC W/AUTO [id number] 00:00:00 Test Item Value Reference Range Interpretation [...] code = 1015) 224 K/UL CBC W/AUTO [id number] 00:00:00 Test Item Value Reference Range Interpretation [...] code = 1015) 224 K/UL CBC W/AUTO [id number] 00:00:00 Test Item Value Reference Range Interpretation [...] TSH (test code = 2821) <0.10 UIU/ML [id number] 00:00:00 Test Item Value Reference Range Interpretation Comments MAGNESIUM (test code = 2226) 1.4 MG/DL [id number] 00:00:00 Test Item Value Reference Range Interpretation Comments MAGNESIUM (test code = 2226) 1.4 MG/DL [id number] 00:00:00 Test Item Value Reference Range Interpretation Comments MAGNESIUM (test code = 2226) 1.4 MG/DL COMPREHENSIVE METABOLIC [id number] 00:00:00 Test Item Value Reference Range Interpretation Comments GLUCOSE (test code = 2217) 234 MG/DL BUN (test code = 2208) 17 MG/DL CREATININE (test code = 2214) 0.54 MG/DL eGFR AMER. (test code 139 ML/MIN/1.73 = 62056) eGFR NON- AMER. (test 120 ML/MIN/1.73 code = 81431) CALC BUN/CREAT (test code = 31 RATIO [...] code = 2219) 22 U/L COMPREHENSIVE METABOLIC [id number] 00:00:00 Test Item Value Reference Range Interpretation Comments GLUCOSE (test code = 2217) 234 MG/DL BUN (test code = 2208) 17 MG/DL CREATININE (test code = 2214) 0.54 MG/DL eGFR AMER. (test code 139 ML/MIN/1.73 = 86423) eGFR NON- AMER. (test 120 ML/MIN/1.73 code = 76068) CALC BUN/CREAT (test code = 31 RATIO [...] (test code = 2219) 22 U/L HEMOGLOBIN [id number] 00:00:00 Test Item Value Reference Range Interpretation Comments HEMOGLOBIN A1c (test code = 40355) 7.7 % HEMOGLOBIN [id number] 00:00:00 Test Item Value Reference Range Interpretation Comments HEMOGLOBIN A1c (test code = 81193) 7.7 % HEMOGLOBIN [id number] 00:00:00 Test Item Value Reference Range Interpretation Comments HEMOGLOBIN A1c (test code = 89798) 7.7 % CBC W/AUTO [id number] 00:00:00 Test Item Value Reference Range Interpretation [...] code = 1015) 224 K/UL CBC W/AUTO [id number] 00:00:00 Test Item Value Reference Range Interpretation [...] code = 1015) 224 K/UL CBC W/AUTO [id number] 00:00:00 Test Item Value Reference Range Interpretation [...] TSH (test code = 2821) <0.10 UIU/ML [id number] 00:00:00 Test Item Value Reference Range Interpretation Comments MAGNESIUM (test code = 2226) 1.4 MG/DL [id number] 00:00:00 Test Item Value Reference Range Interpretation Comments MAGNESIUM (test code = 2226) 1.4 MG/DL [id number] 00:00:00 Test Item Value Reference Range Interpretation Comments MAGNESIUM (test code = 2226) 1.4 MG/DL [id number] 00:00:00 Test Item Value Reference Range Interpretation Comments MAGNESIUM (test code = 2226) 1.4 MG/DL COMPREHENSIVE METABOLIC [id number] 00:00:00 Test Item Value Reference Range Interpretation Comments GLUCOSE (test code = 2217) 234 MG/DL BUN (test code = 2208) 17 MG/DL CREATININE (test code = 2214) 0.54 MG/DL eGFR AMER. (test code 139 ML/MIN/1.73 = 82757) eGFR NON- AMER. (test 120 ML/MIN/1.73 code = 31135) CALC BUN/CREAT (test code = 31 RATIO [...] code = 2219) 22 U/L COMPREHENSIVE METABOLIC [id number] 00:00:00 Test Item Value Reference Range Interpretation Comments GLUCOSE (test code = 2217) 234 MG/DL BUN (test code = 2208) 17 MG/DL CREATININE (test code = 2214) 0.54 MG/DL eGFR AMER. (test code 139 ML/MIN/1.73 = 71945) eGFR NON- AMER. (test 120 ML/MIN/1.73 code = 91531) CALC BUN/CREAT (test code = 31 RATIO [...] (test code = 2219) 22 U/L HEMOGLOBIN [id number] 00:00:00 Test Item Value Reference Range Interpretation Comments HEMOGLOBIN A1c (test code = 10360) 7.7 % HEMOGLOBIN [id number] 00:00:00 Test Item Value Reference Range Interpretation Comments HEMOGLOBIN A1c (test code = 67911) 7.7 % HEMOGLOBIN [id number] 00:00:00 Test Item Value Reference Range Interpretation Comments HEMOGLOBIN A1c (test code = 54097) 7.7 % [id number] 00:00:00 Test Item Value Reference Range Interpretation Comments MAGNESIUM (test code = 2226) 1.4 MG/DL CBC W/AUTO [id number] 00:00:00 Test Item Value Reference Range Interpretation [...] code = 1015) 224 K/UL CBC W/AUTO [id number] 00:00:00 Test Item Value Reference Range Interpretation [...] code = 1015) 224 K/UL CBC W/AUTO [id number] 00:00:00 Test Item Value Reference Range Interpretation [...] code = 2821) <0.10 UIU/ML COMPREHENSIVE METABOLIC [id number] 00:00:00 Test Item Value Reference Range Interpretation Comments GLUCOSE (test code = 2217) 234 MG/DL BUN (test code = 2208) 17 MG/DL CREATININE (test code = 2214) 0.54 MG/DL eGFR AMER. (test code 139 ML/MIN/1.73 = 89733) eGFR NON- AMER. (test 120 ML/MIN/1.73 code = 36480) CALC BUN/CREAT (test code = 31 RATIO [...] (test code = 2219) 22 U/L HEMOGLOBIN [id number] 00:00:00 Test Item Value Reference Range Interpretation Comments HEMOGLOBIN A1c (test code = 45015) 7.7 % HEMOGLOBIN [id number] 00:00:00 Test Item Value Reference Range Interpretation Comments HEMOGLOBIN A1c (test code = 66564) 7.7 % [id number] 00:00:00 Test Item Value Reference Range Interpretation Comments MAGNESIUM (test code = 2226) 1.4 MG/DL [id number] 00:00:00 Test Item Value Reference Range Interpretation Comments MAGNESIUM (test code = 2226) 1.4 MG/DL [id number] 00:00:00 Test Item Value Reference Range Interpretation Comments MAGNESIUM (test code = 2226) 1.4 MG/DL CBC W/AUTO [id number] 00:00:00 Test Item Value Reference Range Interpretation [...] code = 1015) 224 K/UL COMPREHENSIVE METABOLIC [id number] 00:00:00 Test Item Value Reference Range Interpretation Comments GLUCOSE (test code = 2217) 234 MG/DL BUN (test code = 2208) 17 MG/DL CREATININE (test code = 2214) 0.54 MG/DL eGFR AMER. (test code 139 ML/MIN/1.73 = 25152) eGFR NON- AMER. (test 120 ML/MIN/1.73 code = 58923) CALC BUN/CREAT (test code = 31 RATIO [...] 224) CALC A/G RATIO (test code = 1.3 RATIO 4) BILIRUBIN, TOTAL (test code = 0.2 MG/DL 2206) ALKALINE PHOSPHATASE (test 53 U/L code = 2204) AST (test code = 2218) 16 U/L ALT (test code = 2219) 22 U/L CBC W/AUTO [id number] 00:00:00 Test Item Value Reference Range Interpretation [...] code = 1015) 224 K/UL COMPREHENSIVE METABOLIC [id number] 00:00:00 Test Item Value Reference Range Interpretation Comments GLUCOSE (test code = 2217) 234 MG/DL BUN (test code = 2208) 17 MG/DL CREATININE (test code = 2214) 0.54 MG/DL eGFR AMER. (test code 139 ML/MIN/1.73 = 30409) eGFR NON- AMER. (test 120 ML/MIN/1.73 code = 50055) CALC BUN/CREAT (test code = 31 RATIO [...] 224) CALC A/G RATIO (test code = 1.3 RATIO 2234) BILIRUBIN, TOTAL (test code = 0.2 MG/DL 2206) ALKALINE PHOSPHATASE (test 53 U/L code = 2204) AST (test code = 2218) 16 U/L ALT (test code = 2219) 22 U/L HEMOGLOBIN [id number] 00:00:00 Test Item Value Reference Range Interpretation Comments HEMOGLOBIN A1c (test code = 51215) 7.7 % HEMOGLOBIN [id number] 00:00:00 Test Item Value Reference Range Interpretation Comments HEMOGLOBIN A1c (test code = 90448) 7.7 % HEMOGLOBIN [id number] 00:00:00 Test Item Value Reference Range Interpretation Comments HEMOGLOBIN A1c (test code = 27233) 7.7 % THYROID II PROFILE (T3U, T4, T7, TSH)[id number] 00:00:00 Test Item Value Reference Range Interpretation Comments T3 UPTAKE (test code = 2817) 24.7 % T4 (THYROXINE) (test code = 3.7 UG/DL 281) CALCULATED T7 (FTI) (test code = 0.91 2820) TSH (test code = 2821) <0.10 UIU/ML CBC W/AUTO [id number] 00:00:00 Test Item Value Reference Range Interpretation [...] code = 1015) 224 K/UL CBC W/AUTO [id number] 00:00:00 Test Item Value Reference Range Interpretation [...] code = 1015) 224 K/UL CBC W/AUTO [id number] 00:00:00 Test Item Value Reference Range Interpretation [...] TSH (test code = 2821) <0.10 UIU/ML [id number] 00:00:00 Test Item Value Reference Range Interpretation Comments MAGNESIUM (test code = 2226) 1.4 MG/DL [id number] 00:00:00 Test Item Value Reference Range Interpretation Comments MAGNESIUM (test code = 2226) 1.4 MG/DL [id number] 00:00:00 Test Item Value Reference Range Interpretation Comments MAGNESIUM (test code = 2226) 1.4 MG/DL COMPREHENSIVE METABOLIC [id number] 00:00:00 Test Item Value Reference Range Interpretation Comments GLUCOSE (test code = 2217) 234 MG/DL BUN (test code = 2208) 17 MG/DL CREATININE (test code = 2214) 0.54 MG/DL eGFR AMER. (test code 139 ML/MIN/1.73 = 74797) eGFR NON- AMER. (test 120 ML/MIN/1.73 code = 19378) CALC BUN/CREAT (test code = 31 RATIO [...] code = 2219) 22 U/L COMPREHENSIVE METABOLIC [id number] 00:00:00 Test Item Value Reference Range Interpretation Comments GLUCOSE (test code = 2217) 234 MG/DL BUN (test code = 2208) 17 MG/DL CREATININE (test code = 2214) 0.54 MG/DL eGFR AMER. (test code 139 ML/MIN/1.73 = 25746) eGFR NON- AMER. (test 120 ML/MIN/1.73 code = 73977) CALC BUN/CREAT (test code = 31 RATIO [...] (test code = 2219) 22 U/L HEMOGLOBIN [id number] 00:00:00 Test Item Value Reference Range Interpretation Comments HEMOGLOBIN A1c (test code = 98566) 7.7 % HEMOGLOBIN [id number] 00:00:00 Test Item Value Reference Range Interpretation Comments HEMOGLOBIN A1c (test code = 31018) 7.7 % HEMOGLOBIN [id number] 00:00:00 Test Item Value Reference Range Interpretation Comments HEMOGLOBIN A1c (test code = 18872) 7.7 % CBC W/AUTO [id number] 00:00:00 Test Item Value Reference Range Interpretation [...] code = 1015) 224 K/UL CBC W/AUTO [id number] 00:00:00 Test Item Value Reference Range Interpretation [...] code = 1015) 224 K/UL CBC W/AUTO [id number] 00:00:00 Test Item Value Reference Range Interpretation [...] TSH (test code = 2821) <0.10 UIU/ML [id number] 00:00:00 Test Item Value Reference Range Interpretation Comments MAGNESIUM (test code = 2226) 1.4 MG/DL [id number] 00:00:00 Test Item Value Reference Range Interpretation Comments MAGNESIUM (test code = 2226) 1.4 MG/DL [id number] 00:00:00 Test Item Value Reference Range Interpretation Comments MAGNESIUM (test code = 2226) 1.4 MG/DL COMPREHENSIVE METABOLIC [id number] 00:00:00 Test Item Value Reference Range Interpretation Comments GLUCOSE (test code = 2217) 234 MG/DL BUN (test code = 2208) 17 MG/DL CREATININE (test code = 2214) 0.54 MG/DL eGFR AMER. (test code 139 ML/MIN/1.73 = 71096) eGFR NON- AMER. (test 120 ML/MIN/1.73 code = 98007) CALC BUN/CREAT (test code = 31 RATIO [...] code = 2219) 22 U/L COMPREHENSIVE METABOLIC [id number] 00:00:00 Test Item Value Reference Range Interpretation Comments GLUCOSE (test code = 2217) 234 MG/DL BUN (test code = 2208) 17 MG/DL CREATININE (test code = 2214) 0.54 MG/DL eGFR AMER. (test code 139 ML/MIN/1.73 = 11558) eGFR NON- AMER. (test 120 ML/MIN/1.73 code = 38966) CALC BUN/CREAT (test code = 31 RATIO [...] (test code = 2219) 22 U/L HEMOGLOBIN [id number] 00:00:00 Test Item Value Reference Range Interpretation Comments HEMOGLOBIN A1c (test code = 07276) 7.7 % HEMOGLOBIN [id number] 00:00:00 Test Item Value Reference Range Interpretation Comments HEMOGLOBIN A1c (test code = 46719) 7.7 % HEMOGLOBIN [id number] 00:00:00 Test Item Value Reference Range Interpretation Comments HEMOGLOBIN A1c (test code = 26004) 7.7 % CBC W/AUTO [id number] 00:00:00 Test Item Value Reference Range Interpretation [...] code = 1015) 224 K/UL CBC W/AUTO [id number] 00:00:00 Test Item Value Reference Range Interpretation [...] code = 1015) 224 K/UL CBC W/AUTO [id number] 00:00:00 Test Item Value Reference Range Interpretation [...] <0.10 UIU/ML MARKO (ANTI-NUCLEAR AB) WITH REFLEX [id number] 00:00:00 Test Item Value Reference Range Interpretation Comments ANTI-NUCLEAR ANTIBODIES (test code = NEGATIVE 3506) MARKO (ANTI-NUCLEAR AB) WITH REFLEX [id number] 00:00:00 Test Item Value Reference Range Interpretation Comments ANTI-NUCLEAR ANTIBODIES (test code = NEGATIVE 3506) DHEA [id number] 00:00:00 Test Item Value Reference Range Interpretation Comments DHEA SULFATE (test code = 4225) 77 UG/DL DHEA [id number] 00:00:00 Test Item Value Reference Range Interpretation Comments DHEA SULFATE (test code = 4225) 77 UG/DL MARKO (ANTI-NUCLEAR AB) WITH REFLEX [id number] 00:00:00 Test Item Value Reference Range Interpretation Comments ANTI-NUCLEAR ANTIBODIES (test code = NEGATIVE 3506) MARKO (ANTI-NUCLEAR AB) WITH REFLEX [id number] 00:00:00 Test Item Value Reference Range Interpretation Comments ANTI-NUCLEAR ANTIBODIES (test code = NEGATIVE 3506) DHEA [id number] 00:00:00 Test Item Value Reference Range Interpretation Comments DHEA SULFATE (test code = 4225) 77 UG/DL DHEA [id number] 00:00:00 Test Item Value Reference Range Interpretation Comments DHEA SULFATE (test code = 4225) 77 UG/DL MARKO (ANTI-NUCLEAR AB) WITH REFLEX [id number] 00:00:00 Test Item Value Reference Range Interpretation Comments ANTI-NUCLEAR ANTIBODIES (test code = NEGATIVE 3506) MARKO (ANTI-NUCLEAR AB) WITH REFLEX [id number] 00:00:00 Test Item Value Reference Range Interpretation Comments ANTI-NUCLEAR ANTIBODIES (test code = NEGATIVE 3506) DHEA [id number] 00:00:00 Test Item Value Reference Range Interpretation Comments DHEA SULFATE (test code = 4225) 77 UG/DL DHEA [id number] 00:00:00 Test Item Value Reference Range Interpretation Comments DHEA SULFATE (test code = 4225) 77 UG/DL MARKO (ANTI-NUCLEAR AB) WITH REFLEX [id number] 00:00:00 Test Item Value Reference Range Interpretation Comments ANTI-NUCLEAR ANTIBODIES (test code = NEGATIVE 3506) MARKO (ANTI-NUCLEAR AB) WITH REFLEX [id number] 00:00:00 Test Item Value Reference Range Interpretation Comments ANTI-NUCLEAR ANTIBODIES (test code = NEGATIVE 3506) DHEA [id number] 00:00:00 Test Item Value Reference Range Interpretation Comments DHEA SULFATE (test code = 4225) 77 UG/DL DHEA [id number] 00:00:00 Test Item Value Reference Range Interpretation Comments DHEA SULFATE (test code = 4225) 77 UG/DL MARKO (ANTI-NUCLEAR AB) WITH REFLEX [id number] 00:00:00 Test Item Value Reference Range Interpretation Comments ANTI-NUCLEAR ANTIBODIES (test code = NEGATIVE 3506) MARKO (ANTI-NUCLEAR AB) WITH REFLEX [id number] 00:00:00 Test Item Value Reference Range Interpretation Comments ANTI-NUCLEAR ANTIBODIES (test code = NEGATIVE 3506) DHEA [id number] 00:00:00 Test Item Value Reference Range Interpretation Comments DHEA SULFATE (test code = 4225) 77 UG/DL DHEA [id number] 00:00:00 Test Item Value Reference Range Interpretation Comments DHEA SULFATE (test code = 4225) 77 UG/DL MARKO (ANTI-NUCLEAR AB) WITH REFLEX [id number] 00:00:00 Test Item Value Reference Range Interpretation Comments ANTI-NUCLEAR ANTIBODIES (test code = NEGATIVE 3506) MARKO (ANTI-NUCLEAR AB) WITH REFLEX [id number] 00:00:00 Test Item Value Reference Range Interpretation Comments ANTI-NUCLEAR ANTIBODIES (test code = NEGATIVE 3506) DHEA [id number] 00:00:00 Test Item Value Reference Range Interpretation Comments DHEA SULFATE (test code = 4225) 77 UG/DL DHEA [id number] 00:00:00 Test Item Value Reference Range Interpretation Comments DHEA SULFATE (test code = 4225) 77 UG/DL MARKO (ANTI-NUCLEAR AB) WITH REFLEX [id number] 00:00:00 Test Item Value Reference Range Interpretation Comments ANTI-NUCLEAR ANTIBODIES (test code = NEGATIVE 3506) MARKO (ANTI-NUCLEAR AB) WITH REFLEX [id number] 00:00:00 Test Item Value Reference Range Interpretation Comments ANTI-NUCLEAR ANTIBODIES (test code = NEGATIVE 3506) DHEA [id number] 00:00:00 Test Item Value Reference Range Interpretation Comments DHEA SULFATE (test code = 4225) 77 UG/DL DHEA [id number] 00:00:00 Test Item Value Reference Range Interpretation Comments DHEA SULFATE (test code = 4225) 77 UG/DL MARKO (ANTI-NUCLEAR AB) WITH REFLEX [id number] 00:00:00 Test Item Value Reference Range Interpretation Comments ANTI-NUCLEAR ANTIBODIES (test code = NEGATIVE 3506) MAKRO (ANTI-NUCLEAR AB) WITH REFLEX [id number] 00:00:00 Test Item Value Reference Range Interpretation Comments ANTI-NUCLEAR ANTIBODIES (test code = NEGATIVE 3506) MARKO (ANTI-NUCLEAR AB) WITH REFLEX [id number] 00:00:00 Test Item Value Reference Range Interpretation Comments ANTI-NUCLEAR ANTIBODIES (test code = NEGATIVE 3506) DHEA [id number] 00:00:00 Test Item Value Reference Range Interpretation Comments DHEA SULFATE (test code = 4225) 77 UG/DL DHEA [id number] 00:00:00 Test Item Value Reference Range Interpretation Comments DHEA SULFATE (test code = 4225) 77 UG/DL DHEA [id number] 00:00:00 Test Item Value Reference Range Interpretation Comments DHEA SULFATE (test code = 4225) 77 UG/DL MARKO (ANTI-NUCLEAR AB) WITH REFLEX [id number] 00:00:00 Test Item Value Reference Range Interpretation Comments ANTI-NUCLEAR ANTIBODIES (test code = NEGATIVE 3506) MARKO (ANTI-NUCLEAR AB) WITH REFLEX [id number] 00:00:00 Test Item Value Reference Range Interpretation Comments ANTI-NUCLEAR ANTIBODIES (test code = NEGATIVE 3506) DHEA [id number] 00:00:00 Test Item Value Reference Range Interpretation Comments DHEA SULFATE (test code = 4225) 77 UG/DL DHEA [id number] 00:00:00 Test Item Value Reference Range Interpretation Comments DHEA SULFATE (test code = 4225) 77 UG/DL MARKO (ANTI-NUCLEAR AB) WITH REFLEX [id number] 00:00:00 Test Item Value Reference Range Interpretation Comments ANTI-NUCLEAR ANTIBODIES (test code = NEGATIVE 3506) MARKO (ANTI-NUCLEAR AB) WITH REFLEX [id number] 00:00:00 Test Item Value Reference Range Interpretation Comments ANTI-NUCLEAR ANTIBODIES (test code = NEGATIVE 3506) DHEA [id number] 00:00:00 Test Item Value Reference Range Interpretation Comments DHEA SULFATE (test code = 4225) 77 UG/DL DHEA [id number] 00:00:00 Test Item Value Reference Range Interpretation Comments DHEA SULFATE (test code = 4225) 77 UG/DL VITAMIN D,1,08-[id number] 00:00:00 Test Item Value Reference Range Interpretation Comments VITAMIN D,1,25-DIHYDROXY (test 11.3 PG/ML code = 4960) VITAMIN D,1,13-[id number] 00:00:00 Test Item Value Reference Range Interpretation Comments VITAMIN D,1,25-DIHYDROXY (test 11.3 PG/ML code = 4960) VITAMIN B 12 AND FOLIC [id number] 00:00:00 Test Item Value Reference Range Interpretation Comments VITAMIN B-12 (test code = 2840) 925 PG/ML FOLIC ACID (test code = 2695) >24.0 NG/ML VITAMIN B 12 AND FOLIC [id number] 00:00:00 Test Item Value Reference Range Interpretation [...] (test code = 2821) 0.4 UIU/ML LIPID [id number] 00:00:00 Test Item Value Reference Range Interpretation Comments CHOLESTEROL (test code = 2210) 172 MG/DL TRIGLYCERIDES (test code = 2232) 136 MG/DL HDL CHOLESTEROL (test code = 2220) 44 MG/DL CALC LDL CHOL (test code = 2237) 101 MG/DL RISK RATIO LDL/HDL (test code = 2.29 RATIO 2238) LIPID [id number] 00:00:00 Test Item Value Reference Range Interpretation Comments CHOLESTEROL (test code = 2210) 172 MG/DL TRIGLYCERIDES (test code = 2232) 136 MG/DL HDL CHOLESTEROL (test code = 2220) 44 MG/DL CALC LDL CHOL (test code = 2237) 101 MG/DL RISK RATIO LDL/HDL (test code = 2.29 RATIO 2238) [id number] 00:00:00 Test Item Value Reference Range Interpretation Comments TESTOSTERONE (test code = 2830) <12 NG/DL TESTOSTERONE REF RANGE (test code = (NOTE) 15994) [id number] 00:00:00 Test Item Value Reference Range Interpretation Comments TESTOSTERONE (test code = 2830) <12 NG/DL TESTOSTERONE REF RANGE (test code = (NOTE) 13819) [id number] 00:00:00 Test Item Value Reference Range Interpretation Comments PROLACTIN (test code = 2800) 5.8 NG/ML [id number] 00:00:00 Test Item Value Reference Range Interpretation Comments PROLACTIN (test code = 2800) 5.8 NG/ML FSH + LH [id number] 00:00:00 Test Item Value Reference Range Interpretation Comments FOLLICLE STIM HORMONE (test code = 8.9 MIU/ML 2700) LUTEINIZING HORMONE (test code = 6.5 MIU/ML 2776) FSH + LH [id number] 00:00:00 Test Item Value Reference Range Interpretation Comments FOLLICLE STIM HORMONE (test code = 8.9 MIU/ML 2700) LUTEINIZING HORMONE (test code = 6.5 MIU/ML 2776) VITAMIN D,1,98-[id number] 00:00:00 Test Item Value Reference Range Interpretation Comments VITAMIN D,1,25-DIHYDROXY (test 11.3 PG/ML code = 4960) VITAMIN D,1,97-[id number] 00:00:00 Test Item Value Reference Range Interpretation Comments VITAMIN D,1,25-DIHYDROXY (test 11.3 PG/ML code = 4960) VITAMIN B 12 AND FOLIC [id number] 00:00:00 Test Item Value Reference Range Interpretation Comments VITAMIN B-12 (test code = 2840) 925 PG/ML FOLIC ACID (test code = 2695) >24.0 NG/ML VITAMIN B 12 AND FOLIC [id number] 00:00:00 Test Item Value Reference Range Interpretation [...] (test code = 2821) 0.4 UIU/ML LIPID [id number] 00:00:00 Test Item Value Reference Range Interpretation Comments CHOLESTEROL (test code = 2210) 172 MG/DL TRIGLYCERIDES (test code = 2232) 136 MG/DL HDL CHOLESTEROL (test code = 2220) 44 MG/DL CALC LDL CHOL (test code = 2237) 101 MG/DL RISK RATIO LDL/HDL (test code = 2.29 RATIO 2238) LIPID [id number] 00:00:00 Test Item Value Reference Range Interpretation Comments CHOLESTEROL (test code = 2210) 172 MG/DL TRIGLYCERIDES (test code = 2232) 136 MG/DL HDL CHOLESTEROL (test code = 2220) 44 MG/DL CALC LDL CHOL (test code = 2237) 101 MG/DL RISK RATIO LDL/HDL (test code = 2.29 RATIO 2238) [id number] 00:00:00 Test Item Value Reference Range Interpretation Comments TESTOSTERONE (test code = 2830) <12 NG/DL TESTOSTERONE REF RANGE (test code = (NOTE) 00076) [id number] 00:00:00 Test Item Value Reference Range Interpretation Comments TESTOSTERONE (test code = 2830) <12 NG/DL TESTOSTERONE REF RANGE (test code = (NOTE) 57938) [id number] 00:00:00 Test Item Value Reference Range Interpretation Comments PROLACTIN (test code = 2800) 5.8 NG/ML [id number] 00:00:00 Test Item Value Reference Range Interpretation Comments PROLACTIN (test code = 2800) 5.8 NG/ML FSH + LH [id number] 00:00:00 Test Item Value Reference Range Interpretation Comments FOLLICLE STIM HORMONE (test code = 8.9 MIU/ML 2700) LUTEINIZING HORMONE (test code = 6.5 MIU/ML 2776) FSH + LH [id number] 00:00:00 Test Item Value Reference Range Interpretation Comments FOLLICLE STIM HORMONE (test code = 8.9 MIU/ML 2700) LUTEINIZING HORMONE (test code = 6.5 MIU/ML 2776) VITAMIN D,1,50-[id number] 00:00:00 Test Item Value Reference Range Interpretation Comments VITAMIN D,1,25-DIHYDROXY (test 11.3 PG/ML code = 4960) VITAMIN D,1,71-[id number] 00:00:00 Test Item Value Reference Range Interpretation Comments VITAMIN D,1,25-DIHYDROXY (test 11.3 PG/ML code = 4960) VITAMIN B 12 AND FOLIC [id number] 00:00:00 Test Item Value Reference Range Interpretation Comments VITAMIN B-12 (test code = 2840) 925 PG/ML FOLIC ACID (test code = 2695) >24.0 NG/ML VITAMIN B 12 AND FOLIC [id number] 00:00:00 Test Item Value Reference Range Interpretation [...] (test code = 2821) 0.4 UIU/ML LIPID [id number] 00:00:00 Test Item Value Reference Range Interpretation Comments CHOLESTEROL (test code = 2210) 172 MG/DL TRIGLYCERIDES (test code = 2232) 136 MG/DL HDL CHOLESTEROL (test code = 2220) 44 MG/DL CALC LDL CHOL (test code = 2237) 101 MG/DL RISK RATIO LDL/HDL (test code = 2.29 RATIO 2238) LIPID [id number] 00:00:00 Test Item Value Reference Range Interpretation Comments CHOLESTEROL (test code = 2210) 172 MG/DL TRIGLYCERIDES (test code = 2232) 136 MG/DL HDL CHOLESTEROL (test code = 2220) 44 MG/DL CALC LDL CHOL (test code = 2237) 101 MG/DL RISK RATIO LDL/HDL (test code = 2.29 RATIO 2238) [id number] 00:00:00 Test Item Value Reference Range Interpretation Comments TESTOSTERONE (test code = 2830) <12 NG/DL TESTOSTERONE REF RANGE (test code = (NOTE) 47614) [id number] 00:00:00 Test Item Value Reference Range Interpretation Comments TESTOSTERONE (test code = 2830) <12 NG/DL TESTOSTERONE REF RANGE (test code = (NOTE) 30717) [id number] 00:00:00 Test Item Value Reference Range Interpretation Comments PROLACTIN (test code = 2800) 5.8 NG/ML [id number] 00:00:00 Test Item Value Reference Range Interpretation Comments PROLACTIN (test code = 2800) 5.8 NG/ML FSH + LH [id number] 00:00:00 Test Item Value Reference Range Interpretation Comments FOLLICLE STIM HORMONE (test code = 8.9 MIU/ML 2700) LUTEINIZING HORMONE (test code = 6.5 MIU/ML 2776) FSH + LH [id number] 00:00:00 Test Item Value Reference Range Interpretation Comments FOLLICLE STIM HORMONE (test code = 8.9 MIU/ML 2700) LUTEINIZING HORMONE (test code = 6.5 MIU/ML 2776) VITAMIN D,1,94-[id number] 00:00:00 Test Item Value Reference Range Interpretation Comments VITAMIN D,1,25-DIHYDROXY (test 11.3 PG/ML code = 4960) VITAMIN D,1,56-[id number] 00:00:00 Test Item Value Reference Range Interpretation Comments VITAMIN D,1,25-DIHYDROXY (test 11.3 PG/ML code = 4960) VITAMIN B 12 AND FOLIC [id number] 00:00:00 Test Item Value Reference Range Interpretation Comments VITAMIN B-12 (test code = 2840) 925 PG/ML FOLIC ACID (test code = 2695) >24.0 NG/ML VITAMIN B 12 AND FOLIC [id number] 00:00:00 Test Item Value Reference Range Interpretation [...] (test code = 2821) 0.4 UIU/ML LIPID [id number] 00:00:00 Test Item Value Reference Range Interpretation Comments CHOLESTEROL (test code = 2210) 172 MG/DL TRIGLYCERIDES (test code = 2232) 136 MG/DL HDL CHOLESTEROL (test code = 2220) 44 MG/DL CALC LDL CHOL (test code = 2237) 101 MG/DL RISK RATIO LDL/HDL (test code = 2.29 RATIO 2238) LIPID [id number] 00:00:00 Test Item Value Reference Range Interpretation Comments CHOLESTEROL (test code = 2210) 172 MG/DL TRIGLYCERIDES (test code = 2232) 136 MG/DL HDL CHOLESTEROL (test code = 2220) 44 MG/DL CALC LDL CHOL (test code = 2237) 101 MG/DL RISK RATIO LDL/HDL (test code = 2.29 RATIO 2238) [id number] 00:00:00 Test Item Value Reference Range Interpretation Comments TESTOSTERONE (test code = 2830) <12 NG/DL TESTOSTERONE REF RANGE (test code = (NOTE) 10953) [id number] 00:00:00 Test Item Value Reference Range Interpretation Comments TESTOSTERONE (test code = 2830) <12 NG/DL TESTOSTERONE REF RANGE (test code = (NOTE) 12272) [id number] 00:00:00 Test Item Value Reference Range Interpretation Comments PROLACTIN (test code = 2800) 5.8 NG/ML [id number] 00:00:00 Test Item Value Reference Range Interpretation Comments PROLACTIN (test code = 2800) 5.8 NG/ML FSH + LH [id number] 00:00:00 Test Item Value Reference Range Interpretation Comments FOLLICLE STIM HORMONE (test code = 8.9 MIU/ML 2700) LUTEINIZING HORMONE (test code = 6.5 MIU/ML 2776) FSH + LH [id number] 00:00:00 Test Item Value Reference Range Interpretation Comments FOLLICLE STIM HORMONE (test code = 8.9 MIU/ML 2700) LUTEINIZING HORMONE (test code = 6.5 MIU/ML 2776) VITAMIN D,1,28-[id number] 00:00:00 Test Item Value Reference Range Interpretation Comments VITAMIN D,1,25-DIHYDROXY (test 11.3 PG/ML code = 4960) VITAMIN D,1,64-[id number] 00:00:00 Test Item Value Reference Range Interpretation Comments VITAMIN D,1,25-DIHYDROXY (test 11.3 PG/ML code = 4960) VITAMIN B 12 AND FOLIC [id number] 00:00:00 Test Item Value Reference Range Interpretation Comments VITAMIN B-12 (test code = 2840) 925 PG/ML FOLIC ACID (test code = 2695) >24.0 NG/ML VITAMIN B 12 AND FOLIC [id number] 00:00:00 Test Item Value Reference Range Interpretation [...] (test code = 2821) 0.4 UIU/ML LIPID [id number] 00:00:00 Test Item Value Reference Range Interpretation Comments CHOLESTEROL (test code = 2210) 172 MG/DL TRIGLYCERIDES (test code = 2232) 136 MG/DL HDL CHOLESTEROL (test code = 2220) 44 MG/DL CALC LDL CHOL (test code = 2237) 101 MG/DL RISK RATIO LDL/HDL (test code = 2.29 RATIO 2238) LIPID [id number] 00:00:00 Test Item Value Reference Range Interpretation Comments CHOLESTEROL (test code = 2210) 172 MG/DL TRIGLYCERIDES (test code = 2232) 136 MG/DL HDL CHOLESTEROL (test code = 2220) 44 MG/DL CALC LDL CHOL (test code = 2237) 101 MG/DL RISK RATIO LDL/HDL (test code = 2.29 RATIO 2238) [id number] 00:00:00 Test Item Value Reference Range Interpretation Comments TESTOSTERONE (test code = 2830) <12 NG/DL TESTOSTERONE REF RANGE (test code = (NOTE) 72917) [id number] 00:00:00 Test Item Value Reference Range Interpretation Comments TESTOSTERONE (test code = 2830) <12 NG/DL TESTOSTERONE REF RANGE (test code = (NOTE) 53868) [id number] 00:00:00 Test Item Value Reference Range Interpretation Comments PROLACTIN (test code = 2800) 5.8 NG/ML [id number] 00:00:00 Test Item Value Reference Range Interpretation Comments PROLACTIN (test code = 2800) 5.8 NG/ML FSH + LH [id number] 00:00:00 Test Item Value Reference Range Interpretation Comments FOLLICLE STIM HORMONE (test code = 8.9 MIU/ML 2700) LUTEINIZING HORMONE (test code = 6.5 MIU/ML 2776) FSH + LH [id number] 00:00:00 Test Item Value Reference Range Interpretation Comments FOLLICLE STIM HORMONE (test code = 8.9 MIU/ML 2700) LUTEINIZING HORMONE (test code = 6.5 MIU/ML 2776) VITAMIN D,1,70-[id number] 00:00:00 Test Item Value Reference Range Interpretation Comments VITAMIN D,1,25-DIHYDROXY (test 11.3 PG/ML code = 4960) VITAMIN D,1,29-[id number] 00:00:00 Test Item Value Reference Range Interpretation Comments VITAMIN D,1,25-DIHYDROXY (test 11.3 PG/ML code = 4960) VITAMIN B 12 AND FOLIC [id number] 00:00:00 Test Item Value Reference Range Interpretation Comments VITAMIN B-12 (test code = 2840) 925 PG/ML FOLIC ACID (test code = 2695) >24.0 NG/ML VITAMIN B 12 AND FOLIC [id number] 00:00:00 Test Item Value Reference Range Interpretation [...] (test code = 2821) 0.4 UIU/ML LIPID [id number] 00:00:00 Test Item Value Reference Range Interpretation Comments CHOLESTEROL (test code = 2210) 172 MG/DL TRIGLYCERIDES (test code = 2232) 136 MG/DL HDL CHOLESTEROL (test code = 2220) 44 MG/DL CALC LDL CHOL (test code = 2237) 101 MG/DL RISK RATIO LDL/HDL (test code = 2.29 RATIO 2238) LIPID [id number] 00:00:00 Test Item Value Reference Range Interpretation Comments CHOLESTEROL (test code = 2210) 172 MG/DL TRIGLYCERIDES (test code = 2232) 136 MG/DL HDL CHOLESTEROL (test code = 2220) 44 MG/DL CALC LDL CHOL (test code = 2237) 101 MG/DL RISK RATIO LDL/HDL (test code = 2.29 RATIO 2238) [id number] 00:00:00 Test Item Value Reference Range Interpretation Comments TESTOSTERONE (test code = 2830) <12 NG/DL TESTOSTERONE REF RANGE (test code = (NOTE) 31654) [id number] 00:00:00 Test Item Value Reference Range Interpretation Comments TESTOSTERONE (test code = 2830) <12 NG/DL TESTOSTERONE REF RANGE (test code = (NOTE) 54389) [id number] 00:00:00 Test Item Value Reference Range Interpretation Comments PROLACTIN (test code = 2800) 5.8 NG/ML [id number] 00:00:00 Test Item Value Reference Range Interpretation Comments PROLACTIN (test code = 2800) 5.8 NG/ML FSH + LH [id number] 00:00:00 Test Item Value Reference Range Interpretation Comments FOLLICLE STIM HORMONE (test code = 8.9 MIU/ML 2700) LUTEINIZING HORMONE (test code = 6.5 MIU/ML 2776) FSH + LH [id number] 00:00:00 Test Item Value Reference Range Interpretation Comments FOLLICLE STIM HORMONE (test code = 8.9 MIU/ML 2700) LUTEINIZING HORMONE (test code = 6.5 MIU/ML 2776) VITAMIN D,1,69-[id number] 00:00:00 Test Item Value Reference Range Interpretation Comments VITAMIN D,1,25-DIHYDROXY (test 11.3 PG/ML code = 4960) VITAMIN D,1,46-[id number] 00:00:00 Test Item Value Reference Range Interpretation Comments VITAMIN D,1,25-DIHYDROXY (test 11.3 PG/ML code = 4960) VITAMIN B 12 AND FOLIC [id number] 00:00:00 Test Item Value Reference Range Interpretation Comments VITAMIN B-12 (test code = 2840) 925 PG/ML FOLIC ACID (test code = 2695) >24.0 NG/ML VITAMIN B 12 AND FOLIC [id number] 00:00:00 Test Item Value Reference Range Interpretation [...] (test code = 2821) 0.4 UIU/ML LIPID [id number] 00:00:00 Test Item Value Reference Range Interpretation Comments CHOLESTEROL (test code = 2210) 172 MG/DL TRIGLYCERIDES (test code = 2232) 136 MG/DL HDL CHOLESTEROL (test code = 2220) 44 MG/DL CALC LDL CHOL (test code = 2237) 101 MG/DL RISK RATIO LDL/HDL (test code = 2.29 RATIO 2238) LIPID [id number] 00:00:00 Test Item Value Reference Range Interpretation Comments CHOLESTEROL (test code = 2210) 172 MG/DL TRIGLYCERIDES (test code = 2232) 136 MG/DL HDL CHOLESTEROL (test code = 2220) 44 MG/DL CALC LDL CHOL (test code = 2237) 101 MG/DL RISK RATIO LDL/HDL (test code = 2.29 RATIO 2238) [id number] 00:00:00 Test Item Value Reference Range Interpretation Comments TESTOSTERONE (test code = 2830) <12 NG/DL TESTOSTERONE REF RANGE (test code = (NOTE) 91847) [id number] 00:00:00 Test Item Value Reference Range Interpretation Comments TESTOSTERONE (test code = 2830) <12 NG/DL TESTOSTERONE REF RANGE (test code = (NOTE) 07623) [id number] 00:00:00 Test Item Value Reference Range Interpretation Comments PROLACTIN (test code = 2800) 5.8 NG/ML [id number] 00:00:00 Test Item Value Reference Range Interpretation Comments PROLACTIN (test code = 2800) 5.8 NG/ML FSH + LH [id number] 00:00:00 Test Item Value Reference Range Interpretation Comments FOLLICLE STIM HORMONE (test code = 8.9 MIU/ML 2700) LUTEINIZING HORMONE (test code = 6.5 MIU/ML 2776) FSH + LH [id number] 00:00:00 Test Item Value Reference Range Interpretation Comments FOLLICLE STIM HORMONE (test code = 8.9 MIU/ML 2700) LUTEINIZING HORMONE (test code = 6.5 MIU/ML 2776) VITAMIN D,1,42-[id number] 00:00:00 Test Item Value Reference Range Interpretation Comments VITAMIN D,1,25-DIHYDROXY (test 11.3 PG/ML code = 4960) VITAMIN B 12 AND FOLIC [id number] 00:00:00 Test Item Value Reference Range Interpretation [...] (test code = 2821) 0.4 UIU/ML VITAMIN D,1,70-[id number] 00:00:00 Test Item Value Reference Range Interpretation Comments VITAMIN D,1,25-DIHYDROXY (test 11.3 PG/ML code = 4960) VITAMIN D,1,40-[id number] 00:00:00 Test Item Value Reference Range Interpretation Comments VITAMIN D,1,25-DIHYDROXY (test 11.3 PG/ML code = 4960) VITAMIN B 12 AND FOLIC [id number] 00:00:00 Test Item Value Reference Range Interpretation Comments VITAMIN B-12 (test code = 2840) 925 PG/ML FOLIC ACID (test code = 2695) >24.0 NG/ML VITAMIN B 12 AND FOLIC [id number] 00:00:00 Test Item Value Reference Range Interpretation [...] (test code = 2821) 0.4 UIU/ML LIPID [id number] 00:00:00 Test Item Value Reference Range Interpretation Comments CHOLESTEROL (test code = 2210) 172 MG/DL TRIGLYCERIDES (test code = 2232) 136 MG/DL HDL CHOLESTEROL (test code = 2220) 44 MG/DL CALC LDL CHOL (test code = 2237) 101 MG/DL RISK RATIO LDL/HDL (test code = 2.29 RATIO 2238) LIPID [id number] 00:00:00 Test Item Value Reference Range Interpretation Comments CHOLESTEROL (test code = 2210) 172 MG/DL TRIGLYCERIDES (test code = 2232) 136 MG/DL HDL CHOLESTEROL (test code = 2220) 44 MG/DL CALC LDL CHOL (test code = 2237) 101 MG/DL RISK RATIO LDL/HDL (test code = 2.29 RATIO 2238) [id number] 00:00:00 Test Item Value Reference Range Interpretation Comments TESTOSTERONE (test code = 2830) <12 NG/DL TESTOSTERONE REF RANGE (test code = (NOTE) 62365) [id number] 00:00:00 Test Item Value Reference Range Interpretation Comments TESTOSTERONE (test code = 2830) <12 NG/DL TESTOSTERONE REF RANGE (test code = (NOTE) 44167) [id number] 00:00:00 Test Item Value Reference Range Interpretation Comments PROLACTIN (test code = 2800) 5.8 NG/ML [id number] 00:00:00 Test Item Value Reference Range Interpretation Comments PROLACTIN (test code = 2800) 5.8 NG/ML FSH + LH [id number] 00:00:00 Test Item Value Reference Range Interpretation Comments FOLLICLE STIM HORMONE (test code = 8.9 MIU/ML 2700) LUTEINIZING HORMONE (test code = 6.5 MIU/ML 2776) FSH + LH [id number] 00:00:00 Test Item Value Reference Range Interpretation Comments FOLLICLE STIM HORMONE (test code = 8.9 MIU/ML 2700) LUTEINIZING HORMONE (test code = 6.5 MIU/ML 2776) LIPID [id number] 00:00:00 Test Item Value Reference Range Interpretation Comments CHOLESTEROL (test code = 2210) 172 MG/DL TRIGLYCERIDES (test code = 2232) 136 MG/DL HDL CHOLESTEROL (test code = 2220) 44 MG/DL CALC LDL CHOL (test code = 2237) 101 MG/DL RISK RATIO LDL/HDL (test code = 2.29 RATIO 2238) [id number] 00:00:00 Test Item Value Reference Range Interpretation Comments TESTOSTERONE (test code = 2830) <12 NG/DL TESTOSTERONE REF RANGE (test code = (NOTE) 84985) [id number] 00:00:00 Test Item Value Reference Range Interpretation Comments PROLACTIN (test code = 2800) 5.8 NG/ML FSH + LH [id number] 00:00:00 Test Item Value Reference Range Interpretation Comments FOLLICLE STIM HORMONE (test code = 8.9 MIU/ML 2700) LUTEINIZING HORMONE (test code = 6.5 MIU/ML 2776) VITAMIN D,1,93-[id number] 00:00:00 Test Item Value Reference Range Interpretation Comments VITAMIN D,1,25-DIHYDROXY (test 11.3 PG/ML code = 4960) VITAMIN D,1,77-[id number] 00:00:00 Test Item Value Reference Range Interpretation Comments VITAMIN D,1,25-DIHYDROXY (test 11.3 PG/ML code = 4960) VITAMIN B 12 AND FOLIC [id number] 00:00:00 Test Item Value Reference Range Interpretation Comments VITAMIN B-12 (test code = 2840) 925 PG/ML FOLIC ACID (test code = 2695) >24.0 NG/ML VITAMIN B 12 AND FOLIC [id number] 00:00:00 Test Item Value Reference Range Interpretation [...] (test code = 2821) 0.4 UIU/ML LIPID [id number] 00:00:00 Test Item Value Reference Range Interpretation Comments CHOLESTEROL (test code = 2210) 172 MG/DL TRIGLYCERIDES (test code = 2232) 136 MG/DL HDL CHOLESTEROL (test code = 2220) 44 MG/DL CALC LDL CHOL (test code = 2237) 101 MG/DL RISK RATIO LDL/HDL (test code = 2.29 RATIO 2238) LIPID [id number] 00:00:00 Test Item Value Reference Range Interpretation Comments CHOLESTEROL (test code = 2210) 172 MG/DL TRIGLYCERIDES (test code = 2232) 136 MG/DL HDL CHOLESTEROL (test code = 2220) 44 MG/DL CALC LDL CHOL (test code = 2237) 101 MG/DL RISK RATIO LDL/HDL (test code = 2.29 RATIO 2238) [id number] 00:00:00 Test Item Value Reference Range Interpretation Comments TESTOSTERONE (test code = 2830) <12 NG/DL TESTOSTERONE REF RANGE (test code = (NOTE) 04506) [id number] 00:00:00 Test Item Value Reference Range Interpretation Comments TESTOSTERONE (test code = 2830) <12 NG/DL TESTOSTERONE REF RANGE (test code = (NOTE) 85672) [id number] 00:00:00 Test Item Value Reference Range Interpretation Comments PROLACTIN (test code = 2800) 5.8 NG/ML [id number] 00:00:00 Test Item Value Reference Range Interpretation Comments PROLACTIN (test code = 2800) 5.8 NG/ML FSH + LH [id number] 00:00:00 Test Item Value Reference Range Interpretation Comments FOLLICLE STIM HORMONE (test code = 8.9 MIU/ML 2700) LUTEINIZING HORMONE (test code = 6.5 MIU/ML 2776) FSH + LH [id number] 00:00:00 Test Item Value Reference Range Interpretation Comments FOLLICLE STIM HORMONE (test code = 8.9 MIU/ML 2700) LUTEINIZING HORMONE (test code = 6.5 MIU/ML 2776) VITAMIN D,1,50-[id number] 00:00:00 Test Item Value Reference Range Interpretation Comments VITAMIN D,1,25-DIHYDROXY (test 11.3 PG/ML code = 4960) VITAMIN D,1,32-[id number] 00:00:00 Test Item Value Reference Range Interpretation Comments VITAMIN D,1,25-DIHYDROXY (test 11.3 PG/ML code = 4960) VITAMIN B 12 AND FOLIC [id number] 00:00:00 Test Item Value Reference Range Interpretation Comments VITAMIN B-12 (test code = 2840) 925 PG/ML FOLIC ACID (test code = 2695) >24.0 NG/ML VITAMIN B 12 AND FOLIC [id number] 00:00:00 Test Item Value Reference Range Interpretation [...] (test code = 2821) 0.4 UIU/ML LIPID [id number] 00:00:00 Test Item Value Reference Range Interpretation Comments CHOLESTEROL (test code = 2210) 172 MG/DL TRIGLYCERIDES (test code = 2232) 136 MG/DL HDL CHOLESTEROL (test code = 2220) 44 MG/DL CALC LDL CHOL (test code = 2237) 101 MG/DL RISK RATIO LDL/HDL (test code = 2.29 RATIO 2238) LIPID [id number] 00:00:00 Test Item Value Reference Range Interpretation Comments CHOLESTEROL (test code = 2210) 172 MG/DL TRIGLYCERIDES (test code = 2232) 136 MG/DL HDL CHOLESTEROL (test code = 2220) 44 MG/DL CALC LDL CHOL (test code = 2237) 101 MG/DL RISK RATIO LDL/HDL (test code = 2.29 RATIO 2238) [id number] 00:00:00 Test Item Value Reference Range Interpretation Comments TESTOSTERONE (test code = 2830) <12 NG/DL TESTOSTERONE REF RANGE (test code = (NOTE) 56108) [id number] 00:00:00 Test Item Value Reference Range Interpretation Comments TESTOSTERONE (test code = 2830) <12 NG/DL TESTOSTERONE REF RANGE (test code = (NOTE) 86692) [id number] 00:00:00 Test Item Value Reference Range Interpretation Comments PROLACTIN (test code = 2800) 5.8 NG/ML [id number] 00:00:00 Test Item Value Reference Range Interpretation Comments PROLACTIN (test code = 2800) 5.8 NG/ML FSH + LH [id number] 00:00:00 Test Item Value Reference Range Interpretation Comments FOLLICLE STIM HORMONE (test code = 8.9 MIU/ML 2700) LUTEINIZING HORMONE (test code = 6.5 MIU/ML 2776) FSH + LH [id number] 00:00:00 Test Item Value Reference Range Interpretation Comments FOLLICLE STIM HORMONE (test code = 8.9 MIU/ML 2700) LUTEINIZING HORMONE (test code = 6.5 MIU/ML 2776) SEDIMENTATION [id number] 00:00:00 Test Item Value Reference Range Interpretation Comments SEDIMENTATION RATE (test code = 35 MM/HOUR 1017) SEDIMENTATION [id number] 00:00:00 Test Item Value Reference Range Interpretation Comments SEDIMENTATION RATE (test code = 35 MM/HOUR 1017) CBC W/AUTO [id number] 00:00:00 Test Item Value Reference Range Interpretation [...] code = 1015) 246 K/UL CBC W/AUTO [id number] 00:00:00 Test Item Value Reference Range Interpretation [...] code = 1015) 246 K/UL CBC W/AUTO [id number] 00:00:00 Test Item Value Reference Range Interpretation [...] (test code = 1015) 246 K/UL HEMOGLOBIN [id number] 00:00:00 Test Item Value Reference Range Interpretation Comments HEMOGLOBIN A1c (test code = 72313) 6.2 % HEMOGLOBIN [id number] 00:00:00 Test Item Value Reference Range Interpretation Comments HEMOGLOBIN A1c (test code = 86338) 6.2 % HEMOGLOBIN [id number] 00:00:00 Test Item Value Reference Range Interpretation Comments HEMOGLOBIN A1c (test code = 82786) 6.2 % SEDIMENTATION [id number] 00:00:00 Test Item Value Reference Range Interpretation Comments SEDIMENTATION RATE (test code = 35 MM/HOUR 1017) SEDIMENTATION [id number] 00:00:00 Test Item Value Reference Range Interpretation Comments SEDIMENTATION RATE (test code = 35 MM/HOUR 1017) CBC W/AUTO [id number] 00:00:00 Test Item Value Reference Range Interpretation [...] code = 1015) 246 K/UL CBC W/AUTO [id number] 00:00:00 Test Item Value Reference Range Interpretation [...] code = 1015) 246 K/UL CBC W/AUTO [id number] 00:00:00 Test Item Value Reference Range Interpretation [...] (test code = 1015) 246 K/UL HEMOGLOBIN [id number] 00:00:00 Test Item Value Reference Range Interpretation Comments HEMOGLOBIN A1c (test code = 39509) 6.2 % HEMOGLOBIN [id number] 00:00:00 Test Item Value Reference Range Interpretation Comments HEMOGLOBIN A1c (test code = 27167) 6.2 % HEMOGLOBIN [id number] 00:00:00 Test Item Value Reference Range Interpretation Comments HEMOGLOBIN A1c (test code = 90742) 6.2 % SEDIMENTATION [id number] 00:00:00 Test Item Value Reference Range Interpretation Comments SEDIMENTATION RATE (test code = 35 MM/HOUR 1017) SEDIMENTATION [id number] 00:00:00 Test Item Value Reference Range Interpretation Comments SEDIMENTATION RATE (test code = 35 MM/HOUR 1017) CBC W/AUTO [id number] 00:00:00 Test Item Value Reference Range Interpretation [...] code = 1015) 246 K/UL CBC W/AUTO [id number] 00:00:00 Test Item Value Reference Range Interpretation [...] code = 1015) 246 K/UL CBC W/AUTO [id number] 00:00:00 Test Item Value Reference Range Interpretation [...] (test code = 1015) 246 K/UL HEMOGLOBIN [id number] 00:00:00 Test Item Value Reference Range Interpretation Comments HEMOGLOBIN A1c (test code = 72508) 6.2 % HEMOGLOBIN [id number] 00:00:00 Test Item Value Reference Range Interpretation Comments HEMOGLOBIN A1c (test code = 69058) 6.2 % HEMOGLOBIN [id number] 00:00:00 Test Item Value Reference Range Interpretation Comments HEMOGLOBIN A1c (test code = 56728) 6.2 % SEDIMENTATION [id number] 00:00:00 Test Item Value Reference Range Interpretation Comments SEDIMENTATION RATE (test code = 35 MM/HOUR 1017) SEDIMENTATION [id number] 00:00:00 Test Item Value Reference Range Interpretation Comments SEDIMENTATION RATE (test code = 35 MM/HOUR 1017) CBC W/AUTO [id number] 00:00:00 Test Item Value Reference Range Interpretation [...] code = 1015) 246 K/UL CBC W/AUTO [id number] 00:00:00 Test Item Value Reference Range Interpretation [...] code = 1015) 246 K/UL CBC W/AUTO [id number] 00:00:00 Test Item Value Reference Range Interpretation [...] (test code = 1015) 246 K/UL HEMOGLOBIN [id number] 00:00:00 Test Item Value Reference Range Interpretation Comments HEMOGLOBIN A1c (test code = 11689) 6.2 % HEMOGLOBIN [id number] 00:00:00 Test Item Value Reference Range Interpretation Comments HEMOGLOBIN A1c (test code = 48899) 6.2 % HEMOGLOBIN [id number] 00:00:00 Test Item Value Reference Range Interpretation Comments HEMOGLOBIN A1c (test code = 70186) 6.2 % SEDIMENTATION [id number] 00:00:00 Test Item Value Reference Range Interpretation Comments SEDIMENTATION RATE (test code = 35 MM/HOUR 1017) SEDIMENTATION [id number] 00:00:00 Test Item Value Reference Range Interpretation Comments SEDIMENTATION RATE (test code = 35 MM/HOUR 1017) CBC W/AUTO [id number] 00:00:00 Test Item Value Reference Range Interpretation [...] code = 1015) 246 K/UL CBC W/AUTO [id number] 00:00:00 Test Item Value Reference Range Interpretation [...] code = 1015) 246 K/UL CBC W/AUTO [id number] 00:00:00 Test Item Value Reference Range Interpretation [...] (test code = 1015) 246 K/UL HEMOGLOBIN [id number] 00:00:00 Test Item Value Reference Range Interpretation Comments HEMOGLOBIN A1c (test code = 67121) 6.2 % HEMOGLOBIN [id number] 00:00:00 Test Item Value Reference Range Interpretation Comments HEMOGLOBIN A1c (test code = 68017) 6.2 % HEMOGLOBIN [id number] 00:00:00 Test Item Value Reference Range Interpretation Comments HEMOGLOBIN A1c (test code = 39093) 6.2 % SEDIMENTATION [id number] 00:00:00 Test Item Value Reference Range Interpretation Comments SEDIMENTATION RATE (test code = 35 MM/HOUR 1017) SEDIMENTATION [id number] 00:00:00 Test Item Value Reference Range Interpretation Comments SEDIMENTATION RATE (test code = 35 MM/HOUR 1017) CBC W/AUTO [id number] 00:00:00 Test Item Value Reference Range Interpretation [...] code = 1015) 246 K/UL CBC W/AUTO [id number] 00:00:00 Test Item Value Reference Range Interpretation [...] code = 1015) 246 K/UL CBC W/AUTO [id number] 00:00:00 Test Item Value Reference Range Interpretation [...] (test code = 1015) 246 K/UL HEMOGLOBIN [id number] 00:00:00 Test Item Value Reference Range Interpretation Comments HEMOGLOBIN A1c (test code = 50167) 6.2 % HEMOGLOBIN [id number] 00:00:00 Test Item Value Reference Range Interpretation Comments HEMOGLOBIN A1c (test code = 01018) 6.2 % HEMOGLOBIN [id number] 00:00:00 Test Item Value Reference Range Interpretation Comments HEMOGLOBIN A1c (test code = 59156) 6.2 % SEDIMENTATION [id number] 00:00:00 Test Item Value Reference Range Interpretation Comments SEDIMENTATION RATE (test code = 35 MM/HOUR 1017) SEDIMENTATION [id number] 00:00:00 Test Item Value Reference Range Interpretation Comments SEDIMENTATION RATE (test code = 35 MM/HOUR 1017) CBC W/AUTO [id number] 00:00:00 Test Item Value Reference Range Interpretation [...] code = 1015) 246 K/UL CBC W/AUTO [id number] 00:00:00 Test Item Value Reference Range Interpretation [...] code = 1015) 246 K/UL CBC W/AUTO [id number] 00:00:00 Test Item Value Reference Range Interpretation [...] (test code = 1015) 246 K/UL HEMOGLOBIN [id number] 00:00:00 Test Item Value Reference Range Interpretation Comments HEMOGLOBIN A1c (test code = 18308) 6.2 % HEMOGLOBIN [id number] 00:00:00 Test Item Value Reference Range Interpretation Comments HEMOGLOBIN A1c (test code = 02527) 6.2 % HEMOGLOBIN [id number] 00:00:00 Test Item Value Reference Range Interpretation Comments HEMOGLOBIN A1c (test code = 48062) 6.2 % SEDIMENTATION [id number] 00:00:00 Test Item Value Reference Range Interpretation Comments SEDIMENTATION RATE (test code = 35 MM/HOUR 1017) SEDIMENTATION [id number] 00:00:00 Test Item Value Reference Range Interpretation Comments SEDIMENTATION RATE (test code = 35 MM/HOUR 1017) SEDIMENTATION [id number] 00:00:00 Test Item Value Reference Range Interpretation Comments SEDIMENTATION RATE (test code = 35 MM/HOUR 1017) CBC W/AUTO [id number] 00:00:00 Test Item Value Reference Range Interpretation [...] code = 1015) 246 K/UL CBC W/AUTO [id number] 00:00:00 Test Item Value Reference Range Interpretation [...] code = 1015) 246 K/UL CBC W/AUTO [id number] 00:00:00 Test Item Value Reference Range Interpretation [...] code = 1015) 246 K/UL CBC W/AUTO [id number] 00:00:00 Test Item Value Reference Range Interpretation [...] (test code = 1015) 246 K/UL HEMOGLOBIN [id number] 00:00:00 Test Item Value Reference Range Interpretation Comments HEMOGLOBIN A1c (test code = 29008) 6.2 % HEMOGLOBIN [id number] 00:00:00 Test Item Value Reference Range Interpretation Comments HEMOGLOBIN A1c (test code = 45773) 6.2 % HEMOGLOBIN [id number] 00:00:00 Test Item Value Reference Range Interpretation Comments HEMOGLOBIN A1c (test code = 73492) 6.2 % CBC W/AUTO [id number] 00:00:00 Test Item Value Reference Range Interpretation [...] (test code = 1015) 246 K/UL HEMOGLOBIN [id number] 00:00:00 Test Item Value Reference Range Interpretation Comments HEMOGLOBIN A1c (test code = 46120) 6.2 % HEMOGLOBIN [id number] 00:00:00 Test Item Value Reference Range Interpretation Comments HEMOGLOBIN A1c (test code = 70135) 6.2 % SEDIMENTATION [id number] 00:00:00 Test Item Value Reference Range Interpretation Comments SEDIMENTATION RATE (test code = 35 MM/HOUR 1017) SEDIMENTATION [id number] 00:00:00 Test Item Value Reference Range Interpretation Comments SEDIMENTATION RATE (test code = 35 MM/HOUR 1017) CBC W/AUTO [id number] 00:00:00 Test Item Value Reference Range Interpretation [...] code = 1015) 246 K/UL CBC W/AUTO [id number] 00:00:00 Test Item Value Reference Range Interpretation [...] code = 1015) 246 K/UL CBC W/AUTO [id number] 00:00:00 Test Item Value Reference Range Interpretation [...] (test code = 1015) 246 K/UL HEMOGLOBIN [id number] 00:00:00 Test Item Value Reference Range Interpretation Comments HEMOGLOBIN A1c (test code = 97203) 6.2 % HEMOGLOBIN [id number] 00:00:00 Test Item Value Reference Range Interpretation Comments HEMOGLOBIN A1c (test code = 38778) 6.2 % HEMOGLOBIN [id number] 00:00:00 Test Item Value Reference Range Interpretation Comments HEMOGLOBIN A1c (test code = 89784) 6.2 % SEDIMENTATION [id number] 00:00:00 Test Item Value Reference Range Interpretation Comments SEDIMENTATION RATE (test code = 35 MM/HOUR 1017) SEDIMENTATION [id number] 00:00:00 Test Item Value Reference Range Interpretation Comments SEDIMENTATION RATE (test code = 35 MM/HOUR 1017) CBC W/AUTO [id number] 00:00:00 Test Item Value Reference Range Interpretation [...] code = 1015) 246 K/UL CBC W/AUTO [id number] 00:00:00 Test Item Value Reference Range Interpretation [...] code = 1015) 246 K/UL CBC W/AUTO [id number] 00:00:00 Test Item Value Reference Range Interpretation [...] (test code = 1015) 246 K/UL HEMOGLOBIN [id number] 00:00:00 Test Item Value Reference Range Interpretation Comments HEMOGLOBIN A1c (test code = 39318) 6.2 % HEMOGLOBIN [id number] 00:00:00 Test Item Value Reference Range Interpretation Comments HEMOGLOBIN A1c (test code = 34132) 6.2 % HEMOGLOBIN [id number] 00:00:00 Test Item Value Reference Range Interpretation Comments HEMOGLOBIN A1c (test code = 19114) 6.2 % COMPREHENSIVE METABOLIC [id number] 00:00:00 Test Item Value Reference Range Interpretation Comments GLUCOSE (test code = 2217) 100 MG/DL BUN (test code = 2208) 10 MG/DL CREATININE (test code = 2214) 0.61 MG/DL eGFR AMER. (test code 134 ML/MIN/1.73 = 60210) eGFR NON- AMER. (test 116 ML/MIN/1.73 code = 32837) CALCULATED BUN/CREAT (test 16 RATIO code = [...] code = 2219) 16 U/L COMPREHENSIVE METABOLIC [id number] 00:00:00 Test Item Value Reference Range Interpretation Comments GLUCOSE (test code = 2217) 100 MG/DL BUN (test code = 2208) 10 MG/DL CREATININE (test code = 2214) 0.61 MG/DL eGFR AMER. (test code 134 ML/MIN/1.73 = 38797) eGFR NON- AMER. (test 116 ML/MIN/1.73 code = 67113) CALCULATED BUN/CREAT (test 16 RATIO code = [...] (test code = 2219) 16 U/L LIPID [id number] 00:00:00 Test Item Value Reference Range Interpretation Comments CHOLESTEROL (test code = 2210) 166 MG/DL TRIGLYCERIDES (test code = 2232) 72 MG/DL HDL CHOLESTEROL (test code = 2220) 47 MG/DL CALCULATED LDL CHOL (test code = 105 MG/DL 2236) RISK RATIO LDL/HDL (test code = 2.23 RATIO 2238) LIPID [id number] 00:00:00 Test Item Value Reference Range Interpretation Comments CHOLESTEROL (test code = 2210) 166 MG/DL TRIGLYCERIDES (test code = 2232) 72 MG/DL HDL CHOLESTEROL (test code = 2220) 47 MG/DL CALCULATED LDL CHOL (test code = 105 MG/DL 2236) RISK RATIO LDL/HDL (test code = 2.23 RATIO 2238) [id number] 00:00:00 Test Item Value Reference Range Interpretation Comments TSH (test code = 2821) 1.2 UIU/ML [id number] 00:00:00 Test Item Value Reference Range Interpretation Comments TSH (test code = 2821) 1.2 UIU/ML [id number] 00:00:00 Test Item Value Reference Range Interpretation Comments TSH (test code = 2821) 1.2 UIU/ML COMPREHENSIVE METABOLIC [id number] 00:00:00 Test Item Value Reference Range Interpretation Comments GLUCOSE (test code = 2217) 100 MG/DL BUN (test code = 2208) 10 MG/DL CREATININE (test code = 2214) 0.61 MG/DL eGFR AMER. (test code 134 ML/MIN/1.73 = 04162) eGFR NON- AMER. (test 116 ML/MIN/1.73 code = 62573) CALCULATED BUN/CREAT (test 16 RATIO code = [...] code = 2219) 16 U/L COMPREHENSIVE METABOLIC [id number] 00:00:00 Test Item Value Reference Range Interpretation Comments GLUCOSE (test code = 2217) 100 MG/DL BUN (test code = 2208) 10 MG/DL CREATININE (test code = 2214) 0.61 MG/DL eGFR AMER. (test code 134 ML/MIN/1.73 = 38659) eGFR NON- AMER. (test 116 ML/MIN/1.73 code = 46970) CALCULATED BUN/CREAT (test 16 RATIO code = [...] (test code = 2219) 16 U/L LIPID [id number] 00:00:00 Test Item Value Reference Range Interpretation Comments CHOLESTEROL (test code = 2210) 166 MG/DL TRIGLYCERIDES (test code = 2232) 72 MG/DL HDL CHOLESTEROL (test code = 2220) 47 MG/DL CALCULATED LDL CHOL (test code = 105 MG/DL 2236) RISK RATIO LDL/HDL (test code = 2.23 RATIO 2238) LIPID [id number] 00:00:00 Test Item Value Reference Range Interpretation Comments CHOLESTEROL (test code = 2210) 166 MG/DL TRIGLYCERIDES (test code = 2232) 72 MG/DL HDL CHOLESTEROL (test code = 2220) 47 MG/DL CALCULATED LDL CHOL (test code = 105 MG/DL 7) RISK RATIO LDL/HDL (test code = 2.23 RATIO 2238) [id number] 00:00:00 Test Item Value Reference Range Interpretation Comments TSH (test code = 2821) 1.2 UIU/ML [id number] 00:00:00 Test Item Value Reference Range Interpretation Comments TSH (test code = 2821) 1.2 UIU/ML [id number] 00:00:00 Test Item Value Reference Range Interpretation Comments TSH (test code = 2821) 1.2 UIU/ML COMPREHENSIVE METABOLIC [id number] 00:00:00 Test Item Value Reference Range Interpretation Comments GLUCOSE (test code = 2217) 100 MG/DL BUN (test code = 2208) 10 MG/DL CREATININE (test code = 2214) 0.61 MG/DL eGFR AMER. (test code 134 ML/MIN/1.73 = 13015) eGFR NON- AMER. (test 116 ML/MIN/1.73 code = 55965) CALCULATED BUN/CREAT (test 16 RATIO code = [...] code = 2219) 16 U/L COMPREHENSIVE METABOLIC [id number] 00:00:00 Test Item Value Reference Range Interpretation Comments GLUCOSE (test code = 2217) 100 MG/DL BUN (test code = 2208) 10 MG/DL CREATININE (test code = 2214) 0.61 MG/DL eGFR AMER. (test code 134 ML/MIN/1.73 = 83783) eGFR NON- AMER. (test 116 ML/MIN/1.73 code = 84837) CALCULATED BUN/CREAT (test 16 RATIO code = [...] (test code = 2219) 16 U/L LIPID [id number] 00:00:00 Test Item Value Reference Range Interpretation Comments CHOLESTEROL (test code = 2210) 166 MG/DL TRIGLYCERIDES (test code = 2232) 72 MG/DL HDL CHOLESTEROL (test code = 2220) 47 MG/DL CALCULATED LDL CHOL (test code = 105 MG/DL 2236) RISK RATIO LDL/HDL (test code = 2.23 RATIO 2238) LIPID [id number] 00:00:00 Test Item Value Reference Range Interpretation Comments CHOLESTEROL (test code = 2210) 166 MG/DL TRIGLYCERIDES (test code = 2232) 72 MG/DL HDL CHOLESTEROL (test code = 2220) 47 MG/DL CALCULATED LDL CHOL (test code = 105 MG/DL 7) RISK RATIO LDL/HDL (test code = 2.23 RATIO 2238) [id number] 00:00:00 Test Item Value Reference Range Interpretation Comments TSH (test code = 2821) 1.2 UIU/ML [id number] 00:00:00 Test Item Value Reference Range Interpretation Comments TSH (test code = 2821) 1.2 UIU/ML [id number] 00:00:00 Test Item Value Reference Range Interpretation Comments TSH (test code = 2821) 1.2 UIU/ML COMPREHENSIVE METABOLIC [id number] 00:00:00 Test Item Value Reference Range Interpretation Comments GLUCOSE (test code = 2217) 100 MG/DL BUN (test code = 2208) 10 MG/DL CREATININE (test code = 2214) 0.61 MG/DL eGFR AMER. (test code 134 ML/MIN/1.73 = 86426) eGFR NON- AMER. (test 116 ML/MIN/1.73 code = 58274) CALCULATED BUN/CREAT (test 16 RATIO code = [...] code = 2219) 16 U/L COMPREHENSIVE METABOLIC [id number] 00:00:00 Test Item Value Reference Range Interpretation Comments GLUCOSE (test code = 2217) 100 MG/DL BUN (test code = 2208) 10 MG/DL CREATININE (test code = 2214) 0.61 MG/DL eGFR AMER. (test code 134 ML/MIN/1.73 = 90291) eGFR NON- AMER. (test 116 ML/MIN/1.73 code = 06568) CALCULATED BUN/CREAT (test 16 RATIO code = [...] (test code = 2219) 16 U/L LIPID [id number] 00:00:00 Test Item Value Reference Range Interpretation Comments CHOLESTEROL (test code = 2210) 166 MG/DL TRIGLYCERIDES (test code = 2232) 72 MG/DL HDL CHOLESTEROL (test code = 2220) 47 MG/DL CALCULATED LDL CHOL (test code = 105 MG/DL 2237) RISK RATIO LDL/HDL (test code = 2.23 RATIO 2238) LIPID [id number] 00:00:00 Test Item Value Reference Range Interpretation Comments CHOLESTEROL (test code = 2210) 166 MG/DL TRIGLYCERIDES (test code = 2232) 72 MG/DL HDL CHOLESTEROL (test code = 2220) 47 MG/DL CALCULATED LDL CHOL (test code = 105 MG/DL 2237) RISK RATIO LDL/HDL (test code = 2.23 RATIO 2238) [id number] 00:00:00 Test Item Value Reference Range Interpretation Comments TSH (test code = 2821) 1.2 UIU/ML [id number] 00:00:00 Test Item Value Reference Range Interpretation Comments TSH (test code = 2821) 1.2 UIU/ML [id number] 00:00:00 Test Item Value Reference Range Interpretation Comments TSH (test code = 2821) 1.2 UIU/ML COMPREHENSIVE METABOLIC [id number] 00:00:00 Test Item Value Reference Range Interpretation Comments GLUCOSE (test code = 2217) 100 MG/DL BUN (test code = 2208) 10 MG/DL CREATININE (test code = 2214) 0.61 MG/DL eGFR AMER. (test code 134 ML/MIN/1.73 = 13009) eGFR NON- AMER. (test 116 ML/MIN/1.73 code = 74015) CALCULATED BUN/CREAT (test 16 RATIO code = [...] code = 2219) 16 U/L COMPREHENSIVE METABOLIC [id number] 00:00:00 Test Item Value Reference Range Interpretation Comments GLUCOSE (test code = 2217) 100 MG/DL BUN (test code = 2208) 10 MG/DL CREATININE (test code = 2214) 0.61 MG/DL eGFR AMER. (test code 134 ML/MIN/1.73 = 62522) eGFR NON- AMER. (test 116 ML/MIN/1.73 code = 32098) CALCULATED BUN/CREAT (test 16 RATIO code = [...] (test code = 2219) 16 U/L LIPID [id number] 00:00:00 Test Item Value Reference Range Interpretation Comments CHOLESTEROL (test code = 2210) 166 MG/DL TRIGLYCERIDES (test code = 2232) 72 MG/DL HDL CHOLESTEROL (test code = 2220) 47 MG/DL CALCULATED LDL CHOL (test code = 105 MG/DL 2236) RISK RATIO LDL/HDL (test code = 2.23 RATIO 2237) LIPID [id number] 00:00:00 Test Item Value Reference Range Interpretation Comments CHOLESTEROL (test code = 2210) 166 MG/DL TRIGLYCERIDES (test code = 2232) 72 MG/DL HDL CHOLESTEROL (test code = 2220) 47 MG/DL CALCULATED LDL CHOL (test code = 105 MG/DL 2236) RISK RATIO LDL/HDL (test code = 2.23 RATIO 2238) [id number] 00:00:00 Test Item Value Reference Range Interpretation Comments TSH (test code = 2821) 1.2 UIU/ML [id number] 00:00:00 Test Item Value Reference Range Interpretation Comments TSH (test code = 2821) 1.2 UIU/ML [id number] 00:00:00 Test Item Value Reference Range Interpretation Comments TSH (test code = 2821) 1.2 UIU/ML COMPREHENSIVE METABOLIC [id number] 00:00:00 Test Item Value Reference Range Interpretation Comments GLUCOSE (test code = 2217) 100 MG/DL BUN (test code = 2208) 10 MG/DL CREATININE (test code = 2214) 0.61 MG/DL eGFR AMER. (test code 134 ML/MIN/1.73 = 26442) eGFR NON- AMER. (test 116 ML/MIN/1.73 code = 37444) CALCULATED BUN/CREAT (test 16 RATIO code = [...] code = 2219) 16 U/L COMPREHENSIVE METABOLIC [id number] 00:00:00 Test Item Value Reference Range Interpretation Comments GLUCOSE (test code = 2217) 100 MG/DL BUN (test code = 2208) 10 MG/DL CREATININE (test code = 2214) 0.61 MG/DL eGFR AMER. (test code 134 ML/MIN/1.73 = 77662) eGFR NON- AMER. (test 116 ML/MIN/1.73 code = 18733) CALCULATED BUN/CREAT (test 16 RATIO code = [...] (test code = 2219) 16 U/L LIPID [id number] 00:00:00 Test Item Value Reference Range Interpretation Comments CHOLESTEROL (test code = 2210) 166 MG/DL TRIGLYCERIDES (test code = 2232) 72 MG/DL HDL CHOLESTEROL (test code = 2220) 47 MG/DL CALCULATED LDL CHOL (test code = 105 MG/DL 7) RISK RATIO LDL/HDL (test code = 2.23 RATIO 2238) LIPID [id number] 00:00:00 Test Item Value Reference Range Interpretation Comments CHOLESTEROL (test code = 2210) 166 MG/DL TRIGLYCERIDES (test code = 2232) 72 MG/DL HDL CHOLESTEROL (test code = 2220) 47 MG/DL CALCULATED LDL CHOL (test code = 105 MG/DL 2237) RISK RATIO LDL/HDL (test code = 2.23 RATIO 2238) [id number] 00:00:00 Test Item Value Reference Range Interpretation Comments TSH (test code = 2821) 1.2 UIU/ML [id number] 00:00:00 Test Item Value Reference Range Interpretation Comments TSH (test code = 2821) 1.2 UIU/ML [id number] 00:00:00 Test Item Value Reference Range Interpretation Comments TSH (test code = 2821) 1.2 UIU/ML COMPREHENSIVE METABOLIC [id number] 00:00:00 Test Item Value Reference Range Interpretation Comments GLUCOSE (test code = 2217) 100 MG/DL BUN (test code = 2208) 10 MG/DL CREATININE (test code = 2214) 0.61 MG/DL eGFR AMER. (test code 134 ML/MIN/1.73 = 79999) eGFR NON- AMER. (test 116 ML/MIN/1.73 code = 55057) CALCULATED BUN/CREAT (test 16 RATIO code = [...] code = 2219) 16 U/L COMPREHENSIVE METABOLIC [id number] 00:00:00 Test Item Value Reference Range Interpretation Comments GLUCOSE (test code = 2217) 100 MG/DL BUN (test code = 2208) 10 MG/DL CREATININE (test code = 2214) 0.61 MG/DL eGFR AMER. (test code 134 ML/MIN/1.73 = 25057) eGFR NON- AMER. (test 116 ML/MIN/1.73 code = 97217) CALCULATED BUN/CREAT (test 16 RATIO code = [...] code = 2219) 16 U/L COMPREHENSIVE METABOLIC [id number] 00:00:00 Test Item Value Reference Range Interpretation Comments GLUCOSE (test code = 2217) 100 MG/DL BUN (test code = 2208) 10 MG/DL CREATININE (test code = 2214) 0.61 MG/DL eGFR AMER. (test code 134 ML/MIN/1.73 = 63403) eGFR NON- AMER. (test 116 ML/MIN/1.73 code = 22072) CALCULATED BUN/CREAT (test 16 RATIO code = [...] (test code = 2219) 16 U/L LIPID [id number] 00:00:00 Test Item Value Reference Range Interpretation Comments CHOLESTEROL (test code = 2210) 166 MG/DL TRIGLYCERIDES (test code = 2232) 72 MG/DL HDL CHOLESTEROL (test code = 2220) 47 MG/DL CALCULATED LDL CHOL (test code = 105 MG/DL 2237) RISK RATIO LDL/HDL (test code = 2.23 RATIO 2238) LIPID [id number] 00:00:00 Test Item Value Reference Range Interpretation Comments CHOLESTEROL (test code = 2210) 166 MG/DL TRIGLYCERIDES (test code = 2232) 72 MG/DL HDL CHOLESTEROL (test code = 2220) 47 MG/DL CALCULATED LDL CHOL (test code = 105 MG/DL 2237) RISK RATIO LDL/HDL (test code = 2.23 RATIO 2238) [id number] 00:00:00 Test Item Value Reference Range Interpretation Comments TSH (test code = 2821) 1.2 UIU/ML [id number] 00:00:00 Test Item Value Reference Range Interpretation Comments TSH (test code = 2821) 1.2 UIU/ML [id number] 00:00:00 Test Item Value Reference Range Interpretation Comments TSH (test code = 2821) 1.2 UIU/ML LIPID [id number] 00:00:00 Test Item Value Reference Range Interpretation Comments CHOLESTEROL (test code = 2210) 166 MG/DL TRIGLYCERIDES (test code = 2232) 72 MG/DL HDL CHOLESTEROL (test code = 2220) 47 MG/DL CALCULATED LDL CHOL (test code = 105 MG/DL 2237) RISK RATIO LDL/HDL (test code = 2.23 RATIO 2238) COMPREHENSIVE METABOLIC [id number] 00:00:00 Test Item Value Reference Range Interpretation Comments GLUCOSE (test code = 2217) 100 MG/DL BUN (test code = 2208) 10 MG/DL CREATININE (test code = 2214) 0.61 MG/DL eGFR AMER. (test code 134 ML/MIN/1.73 = 47346) eGFR NON- AMER. (test 116 ML/MIN/1.73 code = 14322) CALCULATED BUN/CREAT (test 16 RATIO code = [...] code = 2219) 16 U/L COMPREHENSIVE METABOLIC [id number] 00:00:00 Test Item Value Reference Range Interpretation Comments GLUCOSE (test code = 2217) 100 MG/DL BUN (test code = 2208) 10 MG/DL CREATININE (test code = 2214) 0.61 MG/DL eGFR AMER. (test code 134 ML/MIN/1.73 = 80831) eGFR NON- AMER. (test 116 ML/MIN/1.73 code = 03787) CALCULATED BUN/CREAT (test 16 RATIO code = [...] (test code = 2219) 16 U/L LIPID [id number] 00:00:00 Test Item Value Reference Range Interpretation Comments CHOLESTEROL (test code = 2210) 166 MG/DL TRIGLYCERIDES (test code = 2232) 72 MG/DL HDL CHOLESTEROL (test code = 2220) 47 MG/DL CALCULATED LDL CHOL (test code = 105 MG/DL 7) RISK RATIO LDL/HDL (test code = 2.23 RATIO 2238) LIPID [id number] 00:00:00 Test Item Value Reference Range Interpretation Comments CHOLESTEROL (test code = 2210) 166 MG/DL TRIGLYCERIDES (test code = 2232) 72 MG/DL HDL CHOLESTEROL (test code = 2220) 47 MG/DL CALCULATED LDL CHOL (test code = 105 MG/DL 2237) RISK RATIO LDL/HDL (test code = 2.23 RATIO 2238) [id number] 00:00:00 Test Item Value Reference Range Interpretation Comments TSH (test code = 2821) 1.2 UIU/ML [id number] 00:00:00 Test Item Value Reference Range Interpretation Comments TSH (test code = 2821) 1.2 UIU/ML [id number] 00:00:00 Test Item Value Reference Range Interpretation Comments TSH (test code = 2821) 1.2 UIU/ML [id number] 00:00:00 Test Item Value Reference Range Interpretation Comments TSH (test code = 2821) 1.2 UIU/ML [id number] 00:00:00 Test Item Value Reference Range Interpretation Comments TSH (test code = 2821) 1.2 UIU/ML COMPREHENSIVE METABOLIC [id number] 00:00:00 Test Item Value Reference Range Interpretation Comments GLUCOSE (test code = 2217) 100 MG/DL BUN (test code = 2208) 10 MG/DL CREATININE (test code = 2214) 0.61 MG/DL eGFR AMER. (test code 134 ML/MIN/1.73 = 08902) eGFR NON- AMER. (test 116 ML/MIN/1.73 code = 27266) CALCULATED BUN/CREAT (test 16 RATIO code = [...] code = 2219) 16 U/L COMPREHENSIVE METABOLIC [id number] 00:00:00 Test Item Value Reference Range Interpretation Comments GLUCOSE (test code = 2217) 100 MG/DL BUN (test code = 2208) 10 MG/DL CREATININE (test code = 2214) 0.61 MG/DL eGFR AMER. (test code 134 ML/MIN/1.73 = 95844) eGFR NON- AMER. (test 116 ML/MIN/1.73 code = 05737) CALCULATED BUN/CREAT (test 16 RATIO code = [...] (test code = 2219) 16 U/L LIPID [id number] 00:00:00 Test Item Value Reference Range Interpretation Comments CHOLESTEROL (test code = 2210) 166 MG/DL TRIGLYCERIDES (test code = 2232) 72 MG/DL HDL CHOLESTEROL (test code = 2220) 47 MG/DL CALCULATED LDL CHOL (test code = 105 MG/DL 2236) RISK RATIO LDL/HDL (test code = 2.23 RATIO 8) LIPID [id number] 00:00:00 Test Item Value Reference Range Interpretation Comments CHOLESTEROL (test code = 2210) 166 MG/DL TRIGLYCERIDES (test code = 2232) 72 MG/DL HDL CHOLESTEROL (test code = 2220) 47 MG/DL CALCULATED LDL CHOL (test code = 105 MG/DL 2236) RISK RATIO LDL/HDL (test code = 2.23 RATIO 2238) [id number] 00:00:00 Test Item Value Reference Range Interpretation Comments TSH (test code = 2821) 1.2 UIU/ML [id number] 00:00:00 Test Item Value Reference Range Interpretation Comments TSH (test code = 2821) 1.2 UIU/ML [id number] 00:00:00 Test Item Value Reference Range Interpretation Comments TSH (test code = 2821) 1.2 UIU/ML COMPREHENSIVE METABOLIC [id number] 00:00:00 Test Item Value Reference Range Interpretation Comments GLUCOSE (test code = 2217) 100 MG/DL BUN (test code = 2208) 10 MG/DL CREATININE (test code = 2214) 0.61 MG/DL eGFR AMER. (test code 134 ML/MIN/1.73 = 19705) eGFR NON- AMER. (test 116 ML/MIN/1.73 code = 06292) CALCULATED BUN/CREAT (test 16 RATIO code = [...] code = 2219) 16 U/L COMPREHENSIVE METABOLIC [id number] 00:00:00 Test Item Value Reference Range Interpretation Comments GLUCOSE (test code = 2217) 100 MG/DL BUN (test code = 2208) 10 MG/DL CREATININE (test code = 2214) 0.61 MG/DL eGFR AMER. (test code 134 ML/MIN/1.73 = 35713) eGFR NON- AMER. (test 116 ML/MIN/1.73 code = 81838) CALCULATED BUN/CREAT (test 16 RATIO code = [...] (test code = 2219) 16 U/L LIPID [id number] 00:00:00 Test Item Value Reference Range Interpretation Comments CHOLESTEROL (test code = 2210) 166 MG/DL TRIGLYCERIDES (test code = 2232) 72 MG/DL HDL CHOLESTEROL (test code = 2220) 47 MG/DL CALCULATED LDL CHOL (test code = 105 MG/DL 2236) RISK RATIO LDL/HDL (test code = 2.23 RATIO 2238) LIPID [id number] 00:00:00 Test Item Value Reference Range Interpretation Comments CHOLESTEROL (test code = 2210) 166 MG/DL TRIGLYCERIDES (test code = 2232) 72 MG/DL HDL CHOLESTEROL (test code = 2220) 47 MG/DL CALCULATED LDL CHOL (test code = 105 MG/DL 7) RISK RATIO LDL/HDL (test code = 2.23 RATIO 2238) [id number] 00:00:00 Test Item Value Reference Range Interpretation Comments TSH (test code = 2821) 1.2 UIU/ML [id number] 00:00:00 Test Item Value Reference Range Interpretation Comments TSH (test code = 2821) 1.2 UIU/ML [id number] 00:00:00 Test Item Value Reference Range Interpretation Comments TSH (test code = 2821) 1.2 UIU/ML CBC W/AUTO [id number] 00:00:00 Test Item Value Reference Range Interpretation [...] code = 1015) 243 K/UL CBC W/AUTO [id number] 00:00:00 Test Item Value Reference Range Interpretation [...] code = 1015) 243 K/UL CBC W/AUTO [id number] 00:00:00 Test Item Value Reference Range Interpretation [...] (test code = 1015) 243 K/UL HEMOGLOBIN [id number] 00:00:00 Test Item Value Reference Range Interpretation Comments HEMOGLOBIN A1c (test code = 08637) 6.4 % HEMOGLOBIN [id number] 00:00:00 Test Item Value Reference Range Interpretation Comments HEMOGLOBIN A1c (test code = 65732) 6.4 % HEMOGLOBIN [id number] 00:00:00 Test Item Value Reference Range Interpretation Comments HEMOGLOBIN A1c (test code = 28318) 6.4 % CBC W/AUTO [id number] 00:00:00 Test Item Value Reference Range Interpretation [...] code = 1015) 243 K/UL CBC W/AUTO [id number] 00:00:00 Test Item Value Reference Range Interpretation [...] code = 1015) 243 K/UL CBC W/AUTO [id number] 00:00:00 Test Item Value Reference Range Interpretation [...] (test code = 1015) 243 K/UL HEMOGLOBIN [id number] 00:00:00 Test Item Value Reference Range Interpretation Comments HEMOGLOBIN A1c (test code = 22513) 6.4 % HEMOGLOBIN [id number] 00:00:00 Test Item Value Reference Range Interpretation Comments HEMOGLOBIN A1c (test code = 22490) 6.4 % HEMOGLOBIN [id number] 00:00:00 Test Item Value Reference Range Interpretation Comments HEMOGLOBIN A1c (test code = 31488) 6.4 % CBC W/AUTO [id number] 00:00:00 Test Item Value Reference Range Interpretation [...] code = 1015) 243 K/UL CBC W/AUTO [id number] 00:00:00 Test Item Value Reference Range Interpretation [...] code = 1015) 243 K/UL CBC W/AUTO [id number] 00:00:00 Test Item Value Reference Range Interpretation [...] (test code = 1015) 243 K/UL HEMOGLOBIN [id number] 00:00:00 Test Item Value Reference Range Interpretation Comments HEMOGLOBIN A1c (test code = 76536) 6.4 % HEMOGLOBIN [id number] 00:00:00 Test Item Value Reference Range Interpretation Comments HEMOGLOBIN A1c (test code = 52089) 6.4 % HEMOGLOBIN [id number] 00:00:00 Test Item Value Reference Range Interpretation Comments HEMOGLOBIN A1c (test code = 78360) 6.4 % CBC W/AUTO [id number] 00:00:00 Test Item Value Reference Range Interpretation [...] code = 1015) 243 K/UL CBC W/AUTO [id number] 00:00:00 Test Item Value Reference Range Interpretation [...] code = 1015) 243 K/UL CBC W/AUTO [id number] 00:00:00 Test Item Value Reference Range Interpretation [...] (test code = 1015) 243 K/UL HEMOGLOBIN [id number] 00:00:00 Test Item Value Reference Range Interpretation Comments HEMOGLOBIN A1c (test code = 65495) 6.4 % HEMOGLOBIN [id number] 00:00:00 Test Item Value Reference Range Interpretation Comments HEMOGLOBIN A1c (test code = 99299) 6.4 % HEMOGLOBIN [id number] 00:00:00 Test Item Value Reference Range Interpretation Comments HEMOGLOBIN A1c (test code = 59823) 6.4 % CBC W/AUTO [id number] 00:00:00 Test Item Value Reference Range Interpretation [...] code = 1015) 243 K/UL CBC W/AUTO [id number] 00:00:00 Test Item Value Reference Range Interpretation [...] code = 1015) 243 K/UL CBC W/AUTO [id number] 00:00:00 Test Item Value Reference Range Interpretation [...] (test code = 1015) 243 K/UL HEMOGLOBIN [id number] 00:00:00 Test Item Value Reference Range Interpretation Comments HEMOGLOBIN A1c (test code = 18685) 6.4 % HEMOGLOBIN [id number] 00:00:00 Test Item Value Reference Range Interpretation Comments HEMOGLOBIN A1c (test code = 53541) 6.4 % HEMOGLOBIN [id number] 00:00:00 Test Item Value Reference Range Interpretation Comments HEMOGLOBIN A1c (test code = 81175) 6.4 % CBC W/AUTO [id number] 00:00:00 Test Item Value Reference Range Interpretation [...] code = 1015) 243 K/UL CBC W/AUTO [id number] 00:00:00 Test Item Value Reference Range Interpretation [...] code = 1015) 243 K/UL CBC W/AUTO [id number] 00:00:00 Test Item Value Reference Range Interpretation [...] (test code = 1015) 243 K/UL HEMOGLOBIN [id number] 00:00:00 Test Item Value Reference Range Interpretation Comments HEMOGLOBIN A1c (test code = 75544) 6.4 % HEMOGLOBIN [id number] 00:00:00 Test Item Value Reference Range Interpretation Comments HEMOGLOBIN A1c (test code = 78762) 6.4 % HEMOGLOBIN [id number] 00:00:00 Test Item Value Reference Range Interpretation Comments HEMOGLOBIN A1c (test code = 83949) 6.4 % CBC W/AUTO [id number] 00:00:00 Test Item Value Reference Range Interpretation [...] code = 1015) 243 K/UL CBC W/AUTO [id number] 00:00:00 Test Item Value Reference Range Interpretation [...] code = 1015) 243 K/UL CBC W/AUTO [id number] 00:00:00 Test Item Value Reference Range Interpretation [...] (test code = 1015) 243 K/UL HEMOGLOBIN [id number] 00:00:00 Test Item Value Reference Range Interpretation Comments HEMOGLOBIN A1c (test code = 09524) 6.4 % HEMOGLOBIN [id number] 00:00:00 Test Item Value Reference Range Interpretation Comments HEMOGLOBIN A1c (test code = 45273) 6.4 % HEMOGLOBIN [id number] 00:00:00 Test Item Value Reference Range Interpretation Comments HEMOGLOBIN A1c (test code = 38586) 6.4 % CBC W/AUTO [id number] 00:00:00 Test Item Value Reference Range Interpretation [...] code = 1015) 243 K/UL CBC W/AUTO [id number] 00:00:00 Test Item Value Reference Range Interpretation [...] (test code = 1015) 243 K/UL HEMOGLOBIN [id number] 00:00:00 Test Item Value Reference Range Interpretation Comments HEMOGLOBIN A1c (test code = 92151) 6.4 % HEMOGLOBIN [id number] 00:00:00 Test Item Value Reference Range Interpretation Comments HEMOGLOBIN A1c (test code = 37310) 6.4 % CBC W/AUTO [id number] 00:00:00 Test Item Value Reference Range Interpretation [...] code = 1015) 243 K/UL CBC W/AUTO [id number] 00:00:00 Test Item Value Reference Range Interpretation [...] code = 1015) 243 K/UL CBC W/AUTO [id number] 00:00:00 Test Item Value Reference Range Interpretation [...] (test code = 1015) 243 K/UL HEMOGLOBIN [id number] 00:00:00 Test Item Value Reference Range Interpretation Comments HEMOGLOBIN A1c (test code = 51034) 6.4 % HEMOGLOBIN [id number] 00:00:00 Test Item Value Reference Range Interpretation Comments HEMOGLOBIN A1c (test code = 88784) 6.4 % HEMOGLOBIN [id number] 00:00:00 Test Item Value Reference Range Interpretation Comments HEMOGLOBIN A1c (test code = 26405) 6.4 % CBC W/AUTO [id number] 00:00:00 Test Item Value Reference Range Interpretation [...] code = 1015) 243 K/UL CBC W/AUTO [id number] 00:00:00 Test Item Value Reference Range Interpretation [...] code = 1015) 243 K/UL CBC W/AUTO [id number] 00:00:00 Test Item Value Reference Range Interpretation [...] (test code = 1015) 243 K/UL HEMOGLOBIN [id number] 00:00:00 Test Item Value Reference Range Interpretation Comments HEMOGLOBIN A1c (test code = 02440) 6.4 % HEMOGLOBIN [id number] 00:00:00 Test Item Value Reference Range Interpretation Comments HEMOGLOBIN A1c (test code = 23653) 6.4 % HEMOGLOBIN [id number] 00:00:00 Test Item Value Reference Range Interpretation Comments HEMOGLOBIN A1c (test code = 95634) 6.4 % CBC W/AUTO [id number] 00:00:00 Test Item Value Reference Range Interpretation [...] code = 1015) 243 K/UL CBC W/AUTO [id number] 00:00:00 Test Item Value Reference Range Interpretation [...] code = 1015) 243 K/UL CBC W/AUTO [id number] 00:00:00 Test Item Value Reference Range Interpretation [...] (test code = 1015) 243 K/UL HEMOGLOBIN [id number] 00:00:00 Test Item Value Reference Range Interpretation Comments HEMOGLOBIN A1c (test code = 32577) 6.4 % HEMOGLOBIN [id number] 00:00:00 Test Item Value Reference Range Interpretation Comments HEMOGLOBIN A1c (test code = 55523) 6.4 % HEMOGLOBIN [id number] 00:00:00 Test Item Value Reference Range Interpretation Comments HEMOGLOBIN A1c (test code = 60964) 6.4 % CHLAMYDIA, AMPLIFIED, [id number] 00:00:00 Test Item Value Reference Range Interpretation Comments CHLAMYDIA, AMPLIFIED (test code = NEGATIVE 94583) CHLAMYDIA, AMPLIFIED, [id number] 00:00:00 Test Item Value Reference Range Interpretation Comments CHLAMYDIA, AMPLIFIED (test code = NEGATIVE 39885) GC, AMPLIFIED, [id number] 00:00:00 Test Item Value Reference Range Interpretation Comments GONORRHEA, AMPLIFIED (test code = NEGATIVE 73224) GC, AMPLIFIED, [id number] 00:00:00 Test Item Value Reference Range Interpretation Comments GONORRHEA, AMPLIFIED (test code = NEGATIVE 60072) HIV AB/AG COMBO RFLX [id number] 00:00:00 Test Item Value Reference Range Interpretation Comments HIV AB/AG COMBO RFLX CONF (test NON-REACTIVE code = 3514) HIV AB/AG COMBO RFLX [id number] 00:00:00 Test Item Value Reference Range Interpretation Comments HIV AB/AG COMBO RFLX CONF (test NON-REACTIVE code = 3514) [id number] 00:00:00 Test Item Value Reference Range Interpretation Comments RPR RESULT (test code = NON-REACTIVE 3501) RPR TITER (test code = 3500) NOT INDIC. TITER [id number] 00:00:00 Test Item Value Reference Range Interpretation Comments RPR RESULT (test code = NON-REACTIVE 3501) RPR TITER (test code = 3500) NOT INDIC. TITER [id number] 00:00:00 Test Item Value Reference Range Interpretation [...] INTERPRETATION HEPATITIS B: (NOTE) (test code = 77889) INTERPRETATION HEPATITIS C: (NOTE) (test code = 85739) HEPATITIS PROFILE (A,B,C)2015-06-24 00:00:00 Test Item Value [...] INTERPRETATION HEPATITIS B: (NOTE) (test code = 05666) INTERPRETATION HEPATITIS C: (NOTE) (test code = 84362) COMPREHENSIVE METABOLIC [id number] 00:00:00 Test Item Value Reference Range Interpretation Comments GLUCOSE (test code = 2217) 105 MG/DL BUN (test code = 2208) 11 MG/DL CREATININE (test code = 2214) 0.80 MG/DL eGFR AMER. (test code 109 ML/MIN/1.73 = 57688) eGFR NON- AMER. (test 94 ML/MIN/1.73 code = 22451) CALCULATED BUN/CREAT (test 14 RATIO code = [...] code = 2219) 14 U/L COMPREHENSIVE METABOLIC [id number] 00:00:00 Test Item Value Reference Range Interpretation Comments GLUCOSE (test code = 2217) 105 MG/DL BUN (test code = 2208) 11 MG/DL CREATININE (test code = 2214) 0.80 MG/DL eGFR AMER. (test code 109 ML/MIN/1.73 = 75395) eGFR NON- AMER. (test 94 ML/MIN/1.73 code = 84673) CALCULATED BUN/CREAT (test 14 RATIO code = [...] (test code = 2219) 14 U/L LIPID [id number] 00:00:00 Test Item Value Reference Range Interpretation Comments CHOLESTEROL (test code = 2210) 211 MG/DL TRIGLYCERIDES (test code = 2232) 209 MG/DL HDL CHOLESTEROL (test code = 2220) 38 MG/DL CALCULATED LDL CHOL (test code = 131 MG/DL 2236) RISK RATIO LDL/HDL (test code = 3.45 RATIO 2238) LIPID [id number] 00:00:00 Test Item Value Reference Range Interpretation Comments CHOLESTEROL (test code = 2210) 211 MG/DL TRIGLYCERIDES (test code = 2232) 209 MG/DL HDL CHOLESTEROL (test code = 2220) 38 MG/DL CALCULATED LDL CHOL (test code = 131 MG/DL 2236) RISK RATIO LDL/HDL (test code = 3.45 RATIO 2238) CBC W/AUTO [id number] 00:00:00 Test Item Value Reference Range Interpretation [...] code = 1015) 254 K/UL CBC W/AUTO [id number] 00:00:00 Test Item Value Reference Range Interpretation [...] code = 1015) 254 K/UL CBC W/AUTO [id number] 00:00:00 Test Item Value Reference Range Interpretation [...] (test code = 1015) 254 K/UL HEMOGLOBIN [id number] 00:00:00 Test Item Value Reference Range Interpretation Comments HEMOGLOBIN A1c (test code = 53076) 6.9 % HEMOGLOBIN [id number] 00:00:00 Test Item Value Reference Range Interpretation Comments HEMOGLOBIN A1c (test code = 95835) 6.9 % HEMOGLOBIN [id number] 00:00:00 Test Item Value Reference Range Interpretation Comments HEMOGLOBIN A1c (test code = 93353) 6.9 % [id number] 00:00:00 Test Item Value Reference Range Interpretation Comments TSH (test code = 2821) 0.5 UIU/ML [id number] 00:00:00 Test Item Value Reference Range Interpretation Comments TSH (test code = 2821) 0.5 UIU/ML [id number] 00:00:00 Test Item Value Reference Range Interpretation Comments TSH (test code = 2821) 0.5 UIU/ML HEPATITIS A IgM [REFLEX]2015-06-24 00:00:00 Test Item Value Reference Range Interpretation Comments HEPATITIS A IgM (test code = NON-REACTIVE 2728) CHLAMYDIA, AMPLIFIED, [id number] 00:00:00 Test Item Value Reference Range Interpretation Comments CHLAMYDIA, AMPLIFIED (test code = NEGATIVE 81513) CHLAMYDIA, AMPLIFIED, [id number] 00:00:00 Test Item Value Reference Range Interpretation Comments CHLAMYDIA, AMPLIFIED (test code = NEGATIVE 17472) GC, AMPLIFIED, [id number] 00:00:00 Test Item Value Reference Range Interpretation Comments GONORRHEA, AMPLIFIED (test code = NEGATIVE 24118) GC, AMPLIFIED, [id number] 00:00:00 Test Item Value Reference Range Interpretation Comments GONORRHEA, AMPLIFIED (test code = NEGATIVE 16325) HIV AB/AG COMBO RFLX [id number] 00:00:00 Test Item Value Reference Range Interpretation Comments HIV AB/AG COMBO RFLX CONF (test NON-REACTIVE code = 3514) HIV AB/AG COMBO RFLX [id number] 00:00:00 Test Item Value Reference Range Interpretation Comments HIV AB/AG COMBO RFLX CONF (test NON-REACTIVE code = 3514) [id number] 00:00:00 Test Item Value Reference Range Interpretation Comments RPR RESULT (test code = NON-REACTIVE 3501) RPR TITER (test code = 3500) NOT INDIC. TITER [id number] 00:00:00 Test Item Value Reference Range Interpretation Comments RPR RESULT (test code = NON-REACTIVE 3501) RPR TITER (test code = 3500) NOT INDIC. TITER [id number] 00:00:00 Test Item Value Reference Range Interpretation [...] INTERPRETATION HEPATITIS B: (NOTE) (test code = 45017) INTERPRETATION HEPATITIS C: (NOTE) (test code = 79696) HEPATITIS PROFILE (A,B,C)2015-06-24 00:00:00 Test Item Value [...] INTERPRETATION HEPATITIS B: (NOTE) (test code = 41318) INTERPRETATION HEPATITIS C: (NOTE) (test code = 28751) COMPREHENSIVE METABOLIC [id number] 00:00:00 Test Item Value Reference Range Interpretation Comments GLUCOSE (test code = 2217) 105 MG/DL BUN (test code = 2208) 11 MG/DL CREATININE (test code = 2214) 0.80 MG/DL eGFR AMER. (test code 109 ML/MIN/1.73 = 95881) eGFR NON- AMER. (test 94 ML/MIN/1.73 code = 62438) CALCULATED BUN/CREAT (test 14 RATIO code = [...] code = 2219) 14 U/L COMPREHENSIVE METABOLIC [id number] 00:00:00 Test Item Value Reference Range Interpretation Comments GLUCOSE (test code = 2217) 105 MG/DL BUN (test code = 2208) 11 MG/DL CREATININE (test code = 2214) 0.80 MG/DL eGFR AMER. (test code 109 ML/MIN/1.73 = 66827) eGFR NON- AMER. (test 94 ML/MIN/1.73 code = 54004) CALCULATED BUN/CREAT (test 14 RATIO code = [...] (test code = 2219) 14 U/L LIPID [id number] 00:00:00 Test Item Value Reference Range Interpretation Comments CHOLESTEROL (test code = 2210) 211 MG/DL TRIGLYCERIDES (test code = 2232) 209 MG/DL HDL CHOLESTEROL (test code = 2220) 38 MG/DL CALCULATED LDL CHOL (test code = 131 MG/DL 2237) RISK RATIO LDL/HDL (test code = 3.45 RATIO 2238) LIPID [id number] 00:00:00 Test Item Value Reference Range Interpretation Comments CHOLESTEROL (test code = 2210) 211 MG/DL TRIGLYCERIDES (test code = 2232) 209 MG/DL HDL CHOLESTEROL (test code = 2220) 38 MG/DL CALCULATED LDL CHOL (test code = 131 MG/DL 2237) RISK RATIO LDL/HDL (test code = 3.45 RATIO 2238) CBC W/AUTO [id number] 00:00:00 Test Item Value Reference Range Interpretation [...] code = 1015) 254 K/UL CBC W/AUTO [id number] 00:00:00 Test Item Value Reference Range Interpretation [...] code = 1015) 254 K/UL CBC W/AUTO [id number] 00:00:00 Test Item Value Reference Range Interpretation [...] (test code = 1015) 254 K/UL HEMOGLOBIN [id number] 00:00:00 Test Item Value Reference Range Interpretation Comments HEMOGLOBIN A1c (test code = 79080) 6.9 % HEMOGLOBIN [id number] 00:00:00 Test Item Value Reference Range Interpretation Comments HEMOGLOBIN A1c (test code = 68680) 6.9 % HEMOGLOBIN [id number] 00:00:00 Test Item Value Reference Range Interpretation Comments HEMOGLOBIN A1c (test code = 27166) 6.9 % [id number] 00:00:00 Test Item Value Reference Range Interpretation Comments TSH (test code = 2821) 0.5 UIU/ML [id number] 00:00:00 Test Item Value Reference Range Interpretation Comments TSH (test code = 2821) 0.5 UIU/ML [id number] 00:00:00 Test Item Value Reference Range Interpretation Comments TSH (test code = 2821) 0.5 UIU/ML HEPATITIS A IgM [REFLEX]2015-06-24 00:00:00 Test Item Value Reference Range Interpretation Comments HEPATITIS A IgM (test code = NON-REACTIVE 2728) CHLAMYDIA, AMPLIFIED, [id number] 00:00:00 Test Item Value Reference Range Interpretation Comments CHLAMYDIA, AMPLIFIED (test code = NEGATIVE 97983) CHLAMYDIA, AMPLIFIED, [id number] 00:00:00 Test Item Value Reference Range Interpretation Comments CHLAMYDIA, AMPLIFIED (test code = NEGATIVE 16030) GC, AMPLIFIED, [id number] 00:00:00 Test Item Value Reference Range Interpretation Comments GONORRHEA, AMPLIFIED (test code = NEGATIVE 62123) GC, AMPLIFIED, [id number] 00:00:00 Test Item Value Reference Range Interpretation Comments GONORRHEA, AMPLIFIED (test code = NEGATIVE 22251) HIV AB/AG COMBO RFLX [id number] 00:00:00 Test Item Value Reference Range Interpretation Comments HIV AB/AG COMBO RFLX CONF (test NON-REACTIVE code = 3514) HIV AB/AG COMBO RFLX [id number] 00:00:00 Test Item Value Reference Range Interpretation Comments HIV AB/AG COMBO RFLX CONF (test NON-REACTIVE code = 3514) [id number] 00:00:00 Test Item Value Reference Range Interpretation Comments RPR RESULT (test code = NON-REACTIVE 3501) RPR TITER (test code = 3500) NOT INDIC. TITER [id number] 00:00:00 Test Item Value Reference Range Interpretation Comments RPR RESULT (test code = NON-REACTIVE 3501) RPR TITER (test code = 3500) NOT INDIC. TITER [id number] 00:00:00 Test Item Value Reference Range Interpretation [...] INTERPRETATION HEPATITIS B: (NOTE) (test code = 61328) INTERPRETATION HEPATITIS C: (NOTE) (test code = 54441) HEPATITIS PROFILE (A,B,C)2015-06-24 00:00:00 Test Item Value [...] INTERPRETATION HEPATITIS B: (NOTE) (test code = 50280) INTERPRETATION HEPATITIS C: (NOTE) (test code = 54175) COMPREHENSIVE METABOLIC [id number] 00:00:00 Test Item Value Reference Range Interpretation Comments GLUCOSE (test code = 2217) 105 MG/DL BUN (test code = 2208) 11 MG/DL CREATININE (test code = 2214) 0.80 MG/DL eGFR AMER. (test code 109 ML/MIN/1.73 = 04828) eGFR NON- AMER. (test 94 ML/MIN/1.73 code = 26244) CALCULATED BUN/CREAT (test 14 RATIO code = [...] code = 2219) 14 U/L COMPREHENSIVE METABOLIC [id number] 00:00:00 Test Item Value Reference Range Interpretation Comments GLUCOSE (test code = 2217) 105 MG/DL BUN (test code = 2208) 11 MG/DL CREATININE (test code = 2214) 0.80 MG/DL eGFR AMER. (test code 109 ML/MIN/1.73 = 54750) eGFR NON- AMER. (test 94 ML/MIN/1.73 code = 31195) CALCULATED BUN/CREAT (test 14 RATIO code = [...] (test code = 2219) 14 U/L LIPID [id number] 00:00:00 Test Item Value Reference Range Interpretation Comments CHOLESTEROL (test code = 2210) 211 MG/DL TRIGLYCERIDES (test code = 2232) 209 MG/DL HDL CHOLESTEROL (test code = 2220) 38 MG/DL CALCULATED LDL CHOL (test code = 131 MG/DL 2236) RISK RATIO LDL/HDL (test code = 3.45 RATIO 2238) LIPID [id number] 00:00:00 Test Item Value Reference Range Interpretation Comments CHOLESTEROL (test code = 2210) 211 MG/DL TRIGLYCERIDES (test code = 2232) 209 MG/DL HDL CHOLESTEROL (test code = 2220) 38 MG/DL CALCULATED LDL CHOL (test code = 131 MG/DL 2237) RISK RATIO LDL/HDL (test code = 3.45 RATIO 2238) CBC W/AUTO [id number] 00:00:00 Test Item Value Reference Range Interpretation [...] code = 1015) 254 K/UL CBC W/AUTO [id number] 00:00:00 Test Item Value Reference Range Interpretation [...] code = 1015) 254 K/UL CBC W/AUTO [id number] 00:00:00 Test Item Value Reference Range Interpretation [...] (test code = 1015) 254 K/UL HEMOGLOBIN [id number] 00:00:00 Test Item Value Reference Range Interpretation Comments HEMOGLOBIN A1c (test code = 29008) 6.9 % HEMOGLOBIN [id number] 00:00:00 Test Item Value Reference Range Interpretation Comments HEMOGLOBIN A1c (test code = 01820) 6.9 % HEMOGLOBIN [id number] 00:00:00 Test Item Value Reference Range Interpretation Comments HEMOGLOBIN A1c (test code = 26295) 6.9 % [id number] 00:00:00 Test Item Value Reference Range Interpretation Comments TSH (test code = 2821) 0.5 UIU/ML [id number] 00:00:00 Test Item Value Reference Range Interpretation Comments TSH (test code = 2821) 0.5 UIU/ML [id number] 00:00:00 Test Item Value Reference Range Interpretation Comments TSH (test code = 2821) 0.5 UIU/ML HEPATITIS A IgM [REFLEX]2015-06-24 00:00:00 Test Item Value Reference Range Interpretation Comments HEPATITIS A IgM (test code = NON-REACTIVE 2728) CHLAMYDIA, AMPLIFIED, [id number] 00:00:00 Test Item Value Reference Range Interpretation Comments CHLAMYDIA, AMPLIFIED (test code = NEGATIVE 43254) CHLAMYDIA, AMPLIFIED, [id number] 00:00:00 Test Item Value Reference Range Interpretation Comments CHLAMYDIA, AMPLIFIED (test code = NEGATIVE 29164) GC, AMPLIFIED, [id number] 00:00:00 Test Item Value Reference Range Interpretation Comments GONORRHEA, AMPLIFIED (test code = NEGATIVE 79536) GC, AMPLIFIED, [id number] 00:00:00 Test Item Value Reference Range Interpretation Comments GONORRHEA, AMPLIFIED (test code = NEGATIVE 29567) HIV AB/AG COMBO RFLX [id number] 00:00:00 Test Item Value Reference Range Interpretation Comments HIV AB/AG COMBO RFLX CONF (test NON-REACTIVE code = 3514) HIV AB/AG COMBO RFLX [id number] 00:00:00 Test Item Value Reference Range Interpretation Comments HIV AB/AG COMBO RFLX CONF (test NON-REACTIVE code = 3514) [id number] 00:00:00 Test Item Value Reference Range Interpretation Comments RPR RESULT (test code = NON-REACTIVE 3501) RPR TITER (test code = 3500) NOT INDIC. TITER [id number] 00:00:00 Test Item Value Reference Range Interpretation Comments RPR RESULT (test code = NON-REACTIVE 3501) RPR TITER (test code = 3500) NOT INDIC. TITER [id number] 00:00:00 Test Item Value Reference Range Interpretation [...] INTERPRETATION HEPATITIS B: (NOTE) (test code = 99847) INTERPRETATION HEPATITIS C: (NOTE) (test code = 08906) HEPATITIS PROFILE (A,B,C)2015-06-24 00:00:00 Test Item Value [...] INTERPRETATION HEPATITIS B: (NOTE) (test code = 33524) INTERPRETATION HEPATITIS C: (NOTE) (test code = 27643) COMPREHENSIVE METABOLIC [id number] 00:00:00 Test Item Value Reference Range Interpretation Comments GLUCOSE (test code = 2217) 105 MG/DL BUN (test code = 2208) 11 MG/DL CREATININE (test code = 2214) 0.80 MG/DL eGFR AMER. (test code 109 ML/MIN/1.73 = 99548) eGFR NON- AMER. (test 94 ML/MIN/1.73 code = 63619) CALCULATED BUN/CREAT (test 14 RATIO code = [...] code = 2219) 14 U/L COMPREHENSIVE METABOLIC [id number] 00:00:00 Test Item Value Reference Range Interpretation Comments GLUCOSE (test code = 2217) 105 MG/DL BUN (test code = 2208) 11 MG/DL CREATININE (test code = 2214) 0.80 MG/DL eGFR AMER. (test code 109 ML/MIN/1.73 = 33078) eGFR NON- AMER. (test 94 ML/MIN/1.73 code = 68046) CALCULATED BUN/CREAT (test 14 RATIO code = [...] (test code = 2219) 14 U/L LIPID [id number] 00:00:00 Test Item Value Reference Range Interpretation Comments CHOLESTEROL (test code = 2210) 211 MG/DL TRIGLYCERIDES (test code = 2232) 209 MG/DL HDL CHOLESTEROL (test code = 2220) 38 MG/DL CALCULATED LDL CHOL (test code = 131 MG/DL 2237) RISK RATIO LDL/HDL (test code = 3.45 RATIO 2238) LIPID [id number] 00:00:00 Test Item Value Reference Range Interpretation Comments CHOLESTEROL (test code = 2210) 211 MG/DL TRIGLYCERIDES (test code = 2232) 209 MG/DL HDL CHOLESTEROL (test code = 2220) 38 MG/DL CALCULATED LDL CHOL (test code = 131 MG/DL 2237) RISK RATIO LDL/HDL (test code = 3.45 RATIO 2238) CBC W/AUTO [id number] 00:00:00 Test Item Value Reference Range Interpretation [...] code = 1015) 254 K/UL CBC W/AUTO [id number] 00:00:00 Test Item Value Reference Range Interpretation [...] code = 1015) 254 K/UL CBC W/AUTO [id number] 00:00:00 Test Item Value Reference Range Interpretation [...] (test code = 1015) 254 K/UL HEMOGLOBIN [id number] 00:00:00 Test Item Value Reference Range Interpretation Comments HEMOGLOBIN A1c (test code = 38953) 6.9 % HEMOGLOBIN [id number] 00:00:00 Test Item Value Reference Range Interpretation Comments HEMOGLOBIN A1c (test code = 94836) 6.9 % HEMOGLOBIN [id number] 00:00:00 Test Item Value Reference Range Interpretation Comments HEMOGLOBIN A1c (test code = 64015) 6.9 % [id number] 00:00:00 Test Item Value Reference Range Interpretation Comments TSH (test code = 2821) 0.5 UIU/ML [id number] 00:00:00 Test Item Value Reference Range Interpretation Comments TSH (test code = 2821) 0.5 UIU/ML [id number] 00:00:00 Test Item Value Reference Range Interpretation Comments TSH (test code = 2821) 0.5 UIU/ML HEPATITIS A IgM [REFLEX]2015-06-24 00:00:00 Test Item Value Reference Range Interpretation Comments HEPATITIS A IgM (test code = NON-REACTIVE 2728) CHLAMYDIA, AMPLIFIED, [id number] 00:00:00 Test Item Value Reference Range Interpretation Comments CHLAMYDIA, AMPLIFIED (test code = NEGATIVE 70195) CHLAMYDIA, AMPLIFIED, [id number] 00:00:00 Test Item Value Reference Range Interpretation Comments CHLAMYDIA, AMPLIFIED (test code = NEGATIVE 88448) GC, AMPLIFIED, [id number] 00:00:00 Test Item Value Reference Range Interpretation Comments GONORRHEA, AMPLIFIED (test code = NEGATIVE 63157) GC, AMPLIFIED, [id number] 00:00:00 Test Item Value Reference Range Interpretation Comments GONORRHEA, AMPLIFIED (test code = NEGATIVE 91374) HIV AB/AG COMBO RFLX [id number] 00:00:00 Test Item Value Reference Range Interpretation Comments HIV AB/AG COMBO RFLX CONF (test NON-REACTIVE code = 3514) HIV AB/AG COMBO RFLX [id number] 00:00:00 Test Item Value Reference Range Interpretation Comments HIV AB/AG COMBO RFLX CONF (test NON-REACTIVE code = 3514) [id number] 00:00:00 Test Item Value Reference Range Interpretation Comments RPR RESULT (test code = NON-REACTIVE 3501) RPR TITER (test code = 3500) NOT INDIC. TITER [id number] 00:00:00 Test Item Value Reference Range Interpretation Comments RPR RESULT (test code = NON-REACTIVE 3501) RPR TITER (test code = 3500) NOT INDIC. TITER [id number] 00:00:00 Test Item Value Reference Range Interpretation [...] INTERPRETATION HEPATITIS B: (NOTE) (test code = 52144) INTERPRETATION HEPATITIS C: (NOTE) (test code = 54109) HEPATITIS PROFILE (A,B,C)2015-06-24 00:00:00 Test Item Value [...] INTERPRETATION HEPATITIS B: (NOTE) (test code = 70787) INTERPRETATION HEPATITIS C: (NOTE) (test code = 12936) COMPREHENSIVE METABOLIC [id number] 00:00:00 Test Item Value Reference Range Interpretation Comments GLUCOSE (test code = 2217) 105 MG/DL BUN (test code = 2208) 11 MG/DL CREATININE (test code = 2214) 0.80 MG/DL eGFR AMER. (test code 109 ML/MIN/1.73 = 24376) eGFR NON- AMER. (test 94 ML/MIN/1.73 code = 85592) CALCULATED BUN/CREAT (test 14 RATIO code = [...] code = 2219) 14 U/L COMPREHENSIVE METABOLIC [id number] 00:00:00 Test Item Value Reference Range Interpretation Comments GLUCOSE (test code = 2217) 105 MG/DL BUN (test code = 2208) 11 MG/DL CREATININE (test code = 2214) 0.80 MG/DL eGFR AMER. (test code 109 ML/MIN/1.73 = 46427) eGFR NON- AMER. (test 94 ML/MIN/1.73 code = 19821) CALCULATED BUN/CREAT (test 14 RATIO code = [...] (test code = 2219) 14 U/L LIPID [id number] 00:00:00 Test Item Value Reference Range Interpretation Comments CHOLESTEROL (test code = 2210) 211 MG/DL TRIGLYCERIDES (test code = 2232) 209 MG/DL HDL CHOLESTEROL (test code = 2220) 38 MG/DL CALCULATED LDL CHOL (test code = 131 MG/DL 2236) RISK RATIO LDL/HDL (test code = 3.45 RATIO 2238) LIPID [id number] 00:00:00 Test Item Value Reference Range Interpretation Comments CHOLESTEROL (test code = 2210) 211 MG/DL TRIGLYCERIDES (test code = 2232) 209 MG/DL HDL CHOLESTEROL (test code = 2220) 38 MG/DL CALCULATED LDL CHOL (test code = 131 MG/DL 7) RISK RATIO LDL/HDL (test code = 3.45 RATIO 2238) CBC W/AUTO [id number] 00:00:00 Test Item Value Reference Range Interpretation [...] code = 1015) 254 K/UL CBC W/AUTO [id number] 00:00:00 Test Item Value Reference Range Interpretation [...] code = 1015) 254 K/UL CBC W/AUTO [id number] 00:00:00 Test Item Value Reference Range Interpretation [...] (test code = 1015) 254 K/UL HEMOGLOBIN [id number] 00:00:00 Test Item Value Reference Range Interpretation Comments HEMOGLOBIN A1c (test code = 05917) 6.9 % HEMOGLOBIN [id number] 00:00:00 Test Item Value Reference Range Interpretation Comments HEMOGLOBIN A1c (test code = 78153) 6.9 % HEMOGLOBIN [id number] 00:00:00 Test Item Value Reference Range Interpretation Comments HEMOGLOBIN A1c (test code = 17417) 6.9 % [id number] 00:00:00 Test Item Value Reference Range Interpretation Comments TSH (test code = 2821) 0.5 UIU/ML [id number] 00:00:00 Test Item Value Reference Range Interpretation Comments TSH (test code = 2821) 0.5 UIU/ML [id number] 00:00:00 Test Item Value Reference Range Interpretation Comments TSH (test code = 2821) 0.5 UIU/ML HEPATITIS A IgM [REFLEX]2015-06-24 00:00:00 Test Item Value Reference Range Interpretation Comments HEPATITIS A IgM (test code = NON-REACTIVE 2728) CHLAMYDIA, AMPLIFIED, [id number] 00:00:00 Test Item Value Reference Range Interpretation Comments CHLAMYDIA, AMPLIFIED (test code = NEGATIVE 24674) CHLAMYDIA, AMPLIFIED, [id number] 00:00:00 Test Item Value Reference Range Interpretation Comments CHLAMYDIA, AMPLIFIED (test code = NEGATIVE 43454) GC, AMPLIFIED, [id number] 00:00:00 Test Item Value Reference Range Interpretation Comments GONORRHEA, AMPLIFIED (test code = NEGATIVE 86242) GC, AMPLIFIED, [id number] 00:00:00 Test Item Value Reference Range Interpretation Comments GONORRHEA, AMPLIFIED (test code = NEGATIVE 59805) HIV AB/AG COMBO RFLX [id number] 00:00:00 Test Item Value Reference Range Interpretation Comments HIV AB/AG COMBO RFLX CONF (test NON-REACTIVE code = 3514) HIV AB/AG COMBO RFLX [id number] 00:00:00 Test Item Value Reference Range Interpretation Comments HIV AB/AG COMBO RFLX CONF (test NON-REACTIVE code = 3514) [id number] 00:00:00 Test Item Value Reference Range Interpretation Comments RPR RESULT (test code = NON-REACTIVE 3501) RPR TITER (test code = 3500) NOT INDIC. TITER [id number] 00:00:00 Test Item Value Reference Range Interpretation Comments RPR RESULT (test code = NON-REACTIVE 3501) RPR TITER (test code = 3500) NOT INDIC. TITER [id number] 00:00:00 Test Item Value Reference Range Interpretation [...] INTERPRETATION HEPATITIS B: (NOTE) (test code = 32182) INTERPRETATION HEPATITIS C: (NOTE) (test code = 48087) HEPATITIS PROFILE (A,B,C)2015-06-24 00:00:00 Test Item Value [...] INTERPRETATION HEPATITIS B: (NOTE) (test code = 69553) INTERPRETATION HEPATITIS C: (NOTE) (test code = 85107) COMPREHENSIVE METABOLIC [id number] 00:00:00 Test Item Value Reference Range Interpretation Comments GLUCOSE (test code = 2217) 105 MG/DL BUN (test code = 2208) 11 MG/DL CREATININE (test code = 2214) 0.80 MG/DL eGFR AMER. (test code 109 ML/MIN/1.73 = 75437) eGFR NON- AMER. (test 94 ML/MIN/1.73 code = 95113) CALCULATED BUN/CREAT (test 14 RATIO code = [...] code = 2219) 14 U/L COMPREHENSIVE METABOLIC [id number] 00:00:00 Test Item Value Reference Range Interpretation Comments GLUCOSE (test code = 2217) 105 MG/DL BUN (test code = 2208) 11 MG/DL CREATININE (test code = 2214) 0.80 MG/DL eGFR AMER. (test code 109 ML/MIN/1.73 = 57682) eGFR NON- AMER. (test 94 ML/MIN/1.73 code = 04715) CALCULATED BUN/CREAT (test 14 RATIO code = [...] (test code = 2219) 14 U/L LIPID [id number] 00:00:00 Test Item Value Reference Range Interpretation Comments CHOLESTEROL (test code = 2210) 211 MG/DL TRIGLYCERIDES (test code = 2232) 209 MG/DL HDL CHOLESTEROL (test code = 2220) 38 MG/DL CALCULATED LDL CHOL (test code = 131 MG/DL 2237) RISK RATIO LDL/HDL (test code = 3.45 RATIO 2238) LIPID [id number] 00:00:00 Test Item Value Reference Range Interpretation Comments CHOLESTEROL (test code = 2210) 211 MG/DL TRIGLYCERIDES (test code = 2232) 209 MG/DL HDL CHOLESTEROL (test code = 2220) 38 MG/DL CALCULATED LDL CHOL (test code = 131 MG/DL 2237) RISK RATIO LDL/HDL (test code = 3.45 RATIO 2238) CBC W/AUTO [id number] 00:00:00 Test Item Value Reference Range Interpretation [...] code = 1015) 254 K/UL CBC W/AUTO [id number] 00:00:00 Test Item Value Reference Range Interpretation [...] code = 1015) 254 K/UL CBC W/AUTO [id number] 00:00:00 Test Item Value Reference Range Interpretation [...] (test code = 1015) 254 K/UL HEMOGLOBIN [id number] 00:00:00 Test Item Value Reference Range Interpretation Comments HEMOGLOBIN A1c (test code = 51057) 6.9 % HEMOGLOBIN [id number] 00:00:00 Test Item Value Reference Range Interpretation Comments HEMOGLOBIN A1c (test code = 45122) 6.9 % HEMOGLOBIN [id number] 00:00:00 Test Item Value Reference Range Interpretation Comments HEMOGLOBIN A1c (test code = 14843) 6.9 % [id number] 00:00:00 Test Item Value Reference Range Interpretation Comments TSH (test code = 2821) 0.5 UIU/ML [id number] 00:00:00 Test Item Value Reference Range Interpretation Comments TSH (test code = 2821) 0.5 UIU/ML [id number] 00:00:00 Test Item Value Reference Range Interpretation Comments TSH (test code = 2821) 0.5 UIU/ML HEPATITIS A IgM [REFLEX]2015-06-24 00:00:00 Test Item Value Reference Range Interpretation Comments HEPATITIS A IgM (test code = NON-REACTIVE 2728) CHLAMYDIA, AMPLIFIED, [id number] 00:00:00 Test Item Value Reference Range Interpretation Comments CHLAMYDIA, AMPLIFIED (test code = NEGATIVE 74305) CHLAMYDIA, AMPLIFIED, [id number] 00:00:00 Test Item Value Reference Range Interpretation Comments CHLAMYDIA, AMPLIFIED (test code = NEGATIVE 00369) GC, AMPLIFIED, [id number] 00:00:00 Test Item Value Reference Range Interpretation Comments GONORRHEA, AMPLIFIED (test code = NEGATIVE 78119) GC, AMPLIFIED, [id number] 00:00:00 Test Item Value Reference Range Interpretation Comments GONORRHEA, AMPLIFIED (test code = NEGATIVE 36439) HIV AB/AG COMBO RFLX [id number] 00:00:00 Test Item Value Reference Range Interpretation Comments HIV AB/AG COMBO RFLX CONF (test NON-REACTIVE code = 3514) HIV AB/AG COMBO RFLX [id number] 00:00:00 Test Item Value Reference Range Interpretation Comments HIV AB/AG COMBO RFLX CONF (test NON-REACTIVE code = 3514) [id number] 00:00:00 Test Item Value Reference Range Interpretation Comments RPR RESULT (test code = NON-REACTIVE 3501) RPR TITER (test code = 3500) NOT INDIC. TITER [id number] 00:00:00 Test Item Value Reference Range Interpretation Comments RPR RESULT (test code = NON-REACTIVE 3501) RPR TITER (test code = 3500) NOT INDIC. TITER [id number] 00:00:00 Test Item Value Reference Range Interpretation Comments RPR RESULT (test code = NON-REACTIVE 3501) RPR TITER (test code = 3500) NOT INDIC. TITER HEPATITIS PROFILE (A,B,C)2015-06-24 00:00:00 Test Item Value Reference Range Interpretation Comments HEPATITIS A TOTAL AB (test code REACTIVE = 5) HEPATITIS B SURF AG (test code = NON-REACTIVE 2738) HEP B CORE TOTAL AB (test code = NON-REACTIVE 2728) HEPATITIS B SURFACE AB (test NON-REACTIVE code = 2737) HEPATITIS C ANTIBODY (test code NON-REACTIVE = 4675) INTERPRETATION HEPATITIS A: (NOTE) (test code = 2552) INTERPRETATION HEPATITIS B: (NOTE) (test code = 27320) INTERPRETATION HEPATITIS C: (NOTE) (test code = 79993) HEPATITIS PROFILE (A,B,C)2015-06-24 00:00:00 Test Item Value [...] INTERPRETATION HEPATITIS B: (NOTE) (test code = 67351) INTERPRETATION HEPATITIS C: (NOTE) (test code = 54075) COMPREHENSIVE METABOLIC [id number] 00:00:00 Test Item Value Reference Range Interpretation Comments GLUCOSE (test code = 2217) 105 MG/DL BUN (test code = 2208) 11 MG/DL CREATININE (test code = 2214) 0.80 MG/DL eGFR AMER. (test code 109 ML/MIN/1.73 = 34750) eGFR NON- AMER. (test 94 ML/MIN/1.73 code = 64757) CALCULATED BUN/CREAT (test 14 RATIO code = [...] code = 2219) 14 U/L COMPREHENSIVE METABOLIC [id number] 00:00:00 Test Item Value Reference Range Interpretation Comments GLUCOSE (test code = 2217) 105 MG/DL BUN (test code = 2208) 11 MG/DL CREATININE (test code = 2214) 0.80 MG/DL eGFR AMER. (test code 109 ML/MIN/1.73 = 40166) eGFR NON- AMER. (test 94 ML/MIN/1.73 code = 09806) CALCULATED BUN/CREAT (test 14 RATIO code = [...] (test code = 2219) 14 U/L LIPID [id number] 00:00:00 Test Item Value Reference Range Interpretation Comments CHOLESTEROL (test code = 2210) 211 MG/DL TRIGLYCERIDES (test code = 2232) 209 MG/DL HDL CHOLESTEROL (test code = 2220) 38 MG/DL CALCULATED LDL CHOL (test code = 131 MG/DL 2237) RISK RATIO LDL/HDL (test code = 3.45 RATIO 2238) LIPID [id number] 00:00:00 Test Item Value Reference Range Interpretation Comments CHOLESTEROL (test code = 2210) 211 MG/DL TRIGLYCERIDES (test code = 2232) 209 MG/DL HDL CHOLESTEROL (test code = 2220) 38 MG/DL CALCULATED LDL CHOL (test code = 131 MG/DL 2237) RISK RATIO LDL/HDL (test code = 3.45 RATIO 2238) CBC W/AUTO [id number] 00:00:00 Test Item Value Reference Range Interpretation [...] code = 1015) 254 K/UL CBC W/AUTO [id number] 00:00:00 Test Item Value Reference Range Interpretation [...] code = 1015) 254 K/UL CBC W/AUTO [id number] 00:00:00 Test Item Value Reference Range Interpretation [...] (test code = 1015) 254 K/UL HEMOGLOBIN [id number] 00:00:00 Test Item Value Reference Range Interpretation Comments HEMOGLOBIN A1c (test code = 17036) 6.9 % HEMOGLOBIN [id number] 00:00:00 Test Item Value Reference Range Interpretation Comments HEMOGLOBIN A1c (test code = 24683) 6.9 % HEMOGLOBIN [id number] 00:00:00 Test Item Value Reference Range Interpretation Comments HEMOGLOBIN A1c (test code = 98694) 6.9 % [id number] 00:00:00 Test Item Value Reference Range Interpretation Comments TSH (test code = 2821) 0.5 UIU/ML [id number] 00:00:00 Test Item Value Reference Range Interpretation Comments TSH (test code = 2821) 0.5 UIU/ML [id number] 00:00:00 Test Item Value Reference Range Interpretation Comments TSH (test code = 2821) 0.5 UIU/ML HEPATITIS A IgM [REFLEX]2015-06-24 00:00:00 Test Item Value Reference Range Interpretation Comments HEPATITIS A IgM (test code = NON-REACTIVE 2728) CHLAMYDIA, AMPLIFIED, [id number] 00:00:00 Test Item Value Reference Range Interpretation Comments CHLAMYDIA, AMPLIFIED (test code = NEGATIVE 01194) GC, AMPLIFIED, [id number] 00:00:00 Test Item Value Reference Range Interpretation Comments GONORRHEA, AMPLIFIED (test code = NEGATIVE 25358) HIV AB/AG COMBO RFLX [id number] 00:00:00 Test Item Value Reference Range Interpretation Comments HIV AB/AG COMBO RFLX CONF (test NON-REACTIVE code = 3514) [id number] 00:00:00 Test Item Value Reference Range Interpretation Comments RPR RESULT (test code = NON-REACTIVE 3501) RPR TITER (test code = 3500) NOT INDIC. TITER CHLAMYDIA, AMPLIFIED, [id number] 00:00:00 Test Item Value Reference Range Interpretation Comments CHLAMYDIA, AMPLIFIED (test code = NEGATIVE 19038) [id number] 00:00:00 Test Item Value Reference Range Interpretation Comments RPR RESULT (test code = NON-REACTIVE 3501) RPR TITER (test code = 3500) NOT INDIC. TITER CHLAMYDIA, AMPLIFIED, [id number] 00:00:00 Test Item Value Reference Range Interpretation Comments CHLAMYDIA, AMPLIFIED (test code = NEGATIVE 50232) GC, AMPLIFIED, [id number] 00:00:00 Test Item Value Reference Range Interpretation Comments GONORRHEA, AMPLIFIED (test code = NEGATIVE 94997) GC, AMPLIFIED, [id number] 00:00:00 Test Item Value Reference Range Interpretation Comments GONORRHEA, AMPLIFIED (test code = NEGATIVE 24601) HIV AB/AG COMBO RFLX [id number] 00:00:00 Test Item Value Reference Range Interpretation Comments HIV AB/AG COMBO RFLX CONF (test NON-REACTIVE code = 3514) HIV AB/AG COMBO RFLX [id number] 00:00:00 Test Item Value Reference Range Interpretation Comments HIV AB/AG COMBO RFLX CONF (test NON-REACTIVE code = 3514) [id number] 00:00:00 Test Item Value Reference Range Interpretation Comments RPR RESULT (test code = NON-REACTIVE 3501) RPR TITER (test code = 3500) NOT INDIC. TITER [id number] 00:00:00 Test Item Value Reference Range Interpretation Comments RPR RESULT (test code = NON-REACTIVE 3501) RPR TITER (test code = 3500) NOT INDIC. TITER [id number] 00:00:00 Test Item Value Reference Range Interpretation [...] INTERPRETATION HEPATITIS B: (NOTE) (test code = 98178) INTERPRETATION HEPATITIS C: (NOTE) (test code = 96209) HEPATITIS PROFILE (A,B,C)2015-06-24 00:00:00 Test Item Value [...] INTERPRETATION HEPATITIS B: (NOTE) (test code = 34471) INTERPRETATION HEPATITIS C: (NOTE) (test code = 33595) HEPATITIS PROFILE (A,B,C)2015-06-24 00:00:00 Test Item Value [...] INTERPRETATION HEPATITIS B: (NOTE) (test code = 29429) INTERPRETATION HEPATITIS C: (NOTE) (test code = 08447) COMPREHENSIVE METABOLIC [id number] 00:00:00 Test Item Value Reference Range Interpretation Comments GLUCOSE (test code = 2217) 105 MG/DL BUN (test code = 2208) 11 MG/DL CREATININE (test code = 2214) 0.80 MG/DL eGFR AMER. (test code 109 ML/MIN/1.73 = 99975) eGFR NON- AMER. (test 94 ML/MIN/1.73 code = 18997) CALCULATED BUN/CREAT (test 14 RATIO code = [...] code = 2219) 14 U/L COMPREHENSIVE METABOLIC [id number] 00:00:00 Test Item Value Reference Range Interpretation Comments GLUCOSE (test code = 2217) 105 MG/DL BUN (test code = 2208) 11 MG/DL CREATININE (test code = 2214) 0.80 MG/DL eGFR AMER. (test code 109 ML/MIN/1.73 = 03527) eGFR NON- AMER. (test 94 ML/MIN/1.73 code = 71051) CALCULATED BUN/CREAT (test 14 RATIO code = [...] (test code = 2219) 14 U/L LIPID [id number] 00:00:00 Test Item Value Reference Range Interpretation Comments CHOLESTEROL (test code = 2210) 211 MG/DL TRIGLYCERIDES (test code = 2232) 209 MG/DL HDL CHOLESTEROL (test code = 2220) 38 MG/DL CALCULATED LDL CHOL (test code = 131 MG/DL 2236) RISK RATIO LDL/HDL (test code = 3.45 RATIO 2238) LIPID [id number] 00:00:00 Test Item Value Reference Range Interpretation Comments CHOLESTEROL (test code = 2210) 211 MG/DL TRIGLYCERIDES (test code = 2232) 209 MG/DL HDL CHOLESTEROL (test code = 2220) 38 MG/DL CALCULATED LDL CHOL (test code = 131 MG/DL 2236) RISK RATIO LDL/HDL (test code = 3.45 RATIO 2238) CBC W/AUTO [id number] 00:00:00 Test Item Value Reference Range Interpretation [...] code = 1015) 254 K/UL CBC W/AUTO [id number] 00:00:00 Test Item Value Reference Range Interpretation [...] code = 1015) 254 K/UL CBC W/AUTO [id number] 00:00:00 Test Item Value Reference Range Interpretation [...] (test code = 1015) 254 K/UL HEMOGLOBIN [id number] 00:00:00 Test Item Value Reference Range Interpretation Comments HEMOGLOBIN A1c (test code = 42343) 6.9 % HEMOGLOBIN [id number] 00:00:00 Test Item Value Reference Range Interpretation Comments HEMOGLOBIN A1c (test code = 19530) 6.9 % HEMOGLOBIN [id number] 00:00:00 Test Item Value Reference Range Interpretation Comments HEMOGLOBIN A1c (test code = 54479) 6.9 % [id number] 00:00:00 Test Item Value Reference Range Interpretation Comments TSH (test code = 2821) 0.5 UIU/ML [id number] 00:00:00 Test Item Value Reference Range Interpretation Comments TSH (test code = 2821) 0.5 UIU/ML [id number] 00:00:00 Test Item Value Reference Range Interpretation Comments TSH (test code = 2821) 0.5 UIU/ML HEPATITIS A IgM [REFLEX]2015-06-24 00:00:00 Test Item Value Reference Range Interpretation Comments HEPATITIS A IgM (test code = NON-REACTIVE 8) COMPREHENSIVE METABOLIC [id number] 00:00:00 Test Item Value Reference Range Interpretation Comments GLUCOSE (test code = 2217) 105 MG/DL BUN (test code = 2208) 11 MG/DL CREATININE (test code = 2214) 0.80 MG/DL eGFR AMER. (test code 109 ML/MIN/1.73 = 49704) eGFR NON- AMER. (test 94 ML/MIN/1.73 code = 30175) CALCULATED BUN/CREAT (test 14 RATIO code = [...] (test code = 2219) 14 U/L LIPID [id number] 00:00:00 Test Item Value Reference Range Interpretation Comments CHOLESTEROL (test code = 2210) 211 MG/DL TRIGLYCERIDES (test code = 2232) 209 MG/DL HDL CHOLESTEROL (test code = 2220) 38 MG/DL CALCULATED LDL CHOL (test code = 131 MG/DL 2236) RISK RATIO LDL/HDL (test code = 3.45 RATIO 8) CBC W/AUTO [id number] 00:00:00 Test Item Value Reference Range Interpretation [...] code = 1015) 254 K/UL CBC W/AUTO [id number] 00:00:00 Test Item Value Reference Range Interpretation [...] (test code = 1015) 254 K/UL HEMOGLOBIN [id number] 00:00:00 Test Item Value Reference Range Interpretation Comments HEMOGLOBIN A1c (test code = 31914) 6.9 % HEMOGLOBIN [id number] 00:00:00 Test Item Value Reference Range Interpretation Comments HEMOGLOBIN A1c (test code = 14520) 6.9 % [id number] 00:00:00 Test Item Value Reference Range Interpretation Comments TSH (test code = 2821) 0.5 UIU/ML [id number] 00:00:00 Test Item Value Reference Range Interpretation Comments TSH (test code = 2821) 0.5 UIU/ML HEPATITIS A IgM [REFLEX]2015-06-24 00:00:00 Test Item Value Reference Range Interpretation Comments HEPATITIS A IgM (test code = NON-REACTIVE 2728) CHLAMYDIA, AMPLIFIED, [id number] 00:00:00 Test Item Value Reference Range Interpretation Comments CHLAMYDIA, AMPLIFIED (test code = NEGATIVE 80359) CHLAMYDIA, AMPLIFIED, [id number] 00:00:00 Test Item Value Reference Range Interpretation Comments CHLAMYDIA, AMPLIFIED (test code = NEGATIVE 15671) GC, AMPLIFIED, [id number] 00:00:00 Test Item Value Reference Range Interpretation Comments GONORRHEA, AMPLIFIED (test code = NEGATIVE 40967) GC, AMPLIFIED, [id number] 00:00:00 Test Item Value Reference Range Interpretation Comments GONORRHEA, AMPLIFIED (test code = NEGATIVE 94215) HIV AB/AG COMBO RFLX [id number] 00:00:00 Test Item Value Reference Range Interpretation Comments HIV AB/AG COMBO RFLX CONF (test NON-REACTIVE code = 3514) HIV AB/AG COMBO RFLX [id number] 00:00:00 Test Item Value Reference Range Interpretation Comments HIV AB/AG COMBO RFLX CONF (test NON-REACTIVE code = 3514) [id number] 00:00:00 Test Item Value Reference Range Interpretation Comments RPR RESULT (test code = NON-REACTIVE 3501) RPR TITER (test code = 3500) NOT INDIC. TITER [id number] 00:00:00 Test Item Value Reference Range Interpretation Comments RPR RESULT (test code = NON-REACTIVE 3501) RPR TITER (test code = 3500) NOT INDIC. TITER [id number] 00:00:00 Test Item Value Reference Range Interpretation [...] INTERPRETATION HEPATITIS B: (NOTE) (test code = 24135) INTERPRETATION HEPATITIS C: (NOTE) (test code = 43779) HEPATITIS PROFILE (A,B,C)2015-06-24 00:00:00 Test Item Value [...] INTERPRETATION HEPATITIS B: (NOTE) (test code = 60597) INTERPRETATION HEPATITIS C: (NOTE) (test code = 85799) COMPREHENSIVE METABOLIC [id number] 00:00:00 Test Item Value Reference Range Interpretation Comments GLUCOSE (test code = 2217) 105 MG/DL BUN (test code = 2208) 11 MG/DL CREATININE (test code = 2214) 0.80 MG/DL eGFR AMER. (test code 109 ML/MIN/1.73 = 01076) eGFR NON- AMER. (test 94 ML/MIN/1.73 code = 03179) CALCULATED BUN/CREAT (test 14 RATIO code = [...] code = 2219) 14 U/L COMPREHENSIVE METABOLIC [id number] 00:00:00 Test Item Value Reference Range Interpretation Comments GLUCOSE (test code = 2217) 105 MG/DL BUN (test code = 2208) 11 MG/DL CREATININE (test code = 2214) 0.80 MG/DL eGFR AMER. (test code 109 ML/MIN/1.73 = 38724) eGFR NON- AMER. (test 94 ML/MIN/1.73 code = 52544) CALCULATED BUN/CREAT (test 14 RATIO code = [...] (test code = 2219) 14 U/L LIPID [id number] 00:00:00 Test Item Value Reference Range Interpretation Comments CHOLESTEROL (test code = 2210) 211 MG/DL TRIGLYCERIDES (test code = 2232) 209 MG/DL HDL CHOLESTEROL (test code = 2220) 38 MG/DL CALCULATED LDL CHOL (test code = 131 MG/DL 2237) RISK RATIO LDL/HDL (test code = 3.45 RATIO 2238) LIPID [id number] 00:00:00 Test Item Value Reference Range Interpretation Comments CHOLESTEROL (test code = 2210) 211 MG/DL TRIGLYCERIDES (test code = 2232) 209 MG/DL HDL CHOLESTEROL (test code = 2220) 38 MG/DL CALCULATED LDL CHOL (test code = 131 MG/DL 2237) RISK RATIO LDL/HDL (test code = 3.45 RATIO 2238) CBC W/AUTO [id number] 00:00:00 Test Item Value Reference Range Interpretation [...] code = 1015) 254 K/UL CBC W/AUTO [id number] 00:00:00 Test Item Value Reference Range Interpretation [...] code = 1015) 254 K/UL CBC W/AUTO [id number] 00:00:00 Test Item Value Reference Range Interpretation [...] (test code = 1015) 254 K/UL HEMOGLOBIN [id number] 00:00:00 Test Item Value Reference Range Interpretation Comments HEMOGLOBIN A1c (test code = 49242) 6.9 % HEMOGLOBIN [id number] 00:00:00 Test Item Value Reference Range Interpretation Comments HEMOGLOBIN A1c (test code = 41213) 6.9 % HEMOGLOBIN [id number] 00:00:00 Test Item Value Reference Range Interpretation Comments HEMOGLOBIN A1c (test code = 81936) 6.9 % [id number] 00:00:00 Test Item Value Reference Range Interpretation Comments TSH (test code = 2821) 0.5 UIU/ML [id number] 00:00:00 Test Item Value Reference Range Interpretation Comments TSH (test code = 2821) 0.5 UIU/ML [id number] 00:00:00 Test Item Value Reference Range Interpretation Comments TSH (test code = 2821) 0.5 UIU/ML HEPATITIS A IgM [REFLEX]2015-06-24 00:00:00 Test Item Value Reference Range Interpretation Comments HEPATITIS A IgM (test code = NON-REACTIVE 8188) CHLAMYDIA, AMPLIFIED, [id number] 00:00:00 Test Item Value Reference Range Interpretation Comments CHLAMYDIA, AMPLIFIED (test code = NEGATIVE 56178) CHLAMYDIA, AMPLIFIED, [id number] 00:00:00 Test Item Value Reference Range Interpretation Comments CHLAMYDIA, AMPLIFIED (test code = NEGATIVE 53849) GC, AMPLIFIED, [id number] 00:00:00 Test Item Value Reference Range Interpretation Comments GONORRHEA, AMPLIFIED (test code = NEGATIVE 95561) GC, AMPLIFIED, [id number] 00:00:00 Test Item Value Reference Range Interpretation Comments GONORRHEA, AMPLIFIED (test code = NEGATIVE 49230) HIV AB/AG COMBO RFLX [id number] 00:00:00 Test Item Value Reference Range Interpretation Comments HIV AB/AG COMBO RFLX CONF (test NON-REACTIVE code = 3514) HIV AB/AG COMBO RFLX [id number] 00:00:00 Test Item Value Reference Range Interpretation Comments HIV AB/AG COMBO RFLX CONF (test NON-REACTIVE code = 3514) [id number] 00:00:00 Test Item Value Reference Range Interpretation Comments RPR RESULT (test code = NON-REACTIVE 3501) RPR TITER (test code = 3500) NOT INDIC. TITER [id number] 00:00:00 Test Item Value Reference Range Interpretation Comments RPR RESULT (test code = NON-REACTIVE 3501) RPR TITER (test code = 3500) NOT INDIC. TITER [id number] 00:00:00 Test Item Value Reference Range Interpretation [...] INTERPRETATION HEPATITIS B: (NOTE) (test code = 46918) INTERPRETATION HEPATITIS C: (NOTE) (test code = 48610) HEPATITIS PROFILE (A,B,C)2015-06-24 00:00:00 Test Item Value [...] INTERPRETATION HEPATITIS B: (NOTE) (test code = 07402) INTERPRETATION HEPATITIS C: (NOTE) (test code = 07405) COMPREHENSIVE METABOLIC [id number] 00:00:00 Test Item Value Reference Range Interpretation Comments GLUCOSE (test code = 2217) 105 MG/DL BUN (test code = 2208) 11 MG/DL CREATININE (test code = 2214) 0.80 MG/DL eGFR AMER. (test code 109 ML/MIN/1.73 = 55980) eGFR NON- AMER. (test 94 ML/MIN/1.73 code = 93028) CALCULATED BUN/CREAT (test 14 RATIO code = [...] code = 2219) 14 U/L COMPREHENSIVE METABOLIC [id number] 00:00:00 Test Item Value Reference Range Interpretation Comments GLUCOSE (test code = 2217) 105 MG/DL BUN (test code = 2208) 11 MG/DL CREATININE (test code = 2214) 0.80 MG/DL eGFR AMER. (test code 109 ML/MIN/1.73 = 15654) eGFR NON- AMER. (test 94 ML/MIN/1.73 code = 28624) CALCULATED BUN/CREAT (test 14 RATIO code = [...] (test code = 2219) 14 U/L LIPID [id number] 00:00:00 Test Item Value Reference Range Interpretation Comments CHOLESTEROL (test code = 2210) 211 MG/DL TRIGLYCERIDES (test code = 2232) 209 MG/DL HDL CHOLESTEROL (test code = 2220) 38 MG/DL CALCULATED LDL CHOL (test code = 131 MG/DL 2237) RISK RATIO LDL/HDL (test code = 3.45 RATIO 2238) LIPID [id number] 00:00:00 Test Item Value Reference Range Interpretation Comments CHOLESTEROL (test code = 2210) 211 MG/DL TRIGLYCERIDES (test code = 2232) 209 MG/DL HDL CHOLESTEROL (test code = 2220) 38 MG/DL CALCULATED LDL CHOL (test code = 131 MG/DL 2237) RISK RATIO LDL/HDL (test code = 3.45 RATIO 2238) CBC W/AUTO [id number] 00:00:00 Test Item Value Reference Range Interpretation [...] code = 1015) 254 K/UL CBC W/AUTO [id number] 00:00:00 Test Item Value Reference Range Interpretation [...] code = 1015) 254 K/UL CBC W/AUTO [id number] 00:00:00 Test Item Value Reference Range Interpretation [...] (test code = 1015) 254 K/UL HEMOGLOBIN [id number] 00:00:00 Test Item Value Reference Range Interpretation Comments HEMOGLOBIN A1c (test code = 09148) 6.9 % HEMOGLOBIN [id number] 00:00:00 Test Item Value Reference Range Interpretation Comments HEMOGLOBIN A1c (test code = 47978) 6.9 % HEMOGLOBIN [id number] 00:00:00 Test Item Value Reference Range Interpretation Comments HEMOGLOBIN A1c (test code = 02062) 6.9 % [id number] 00:00:00 Test Item Value Reference Range Interpretation Comments TSH (test code = 2821) 0.5 UIU/ML [id number] 00:00:00 Test Item Value Reference Range Interpretation Comments TSH (test code = 2821) 0.5 UIU/ML [id number] 00:00:00 Test Item Value Reference Range Interpretation Comments TSH (test code = 2821) 0.5 UIU/ML HEPATITIS A IgM [REFLEX]2015-06-24 00:00:00 Test Item Value Reference Range Interpretation Comments HEPATITIS A IgM (test code = NON-REACTIVE 8) COMPREHENSIVE METABOLIC [id number] 00:00:00 Test Item Value Reference Range Interpretation Comments GLUCOSE (test code = 2217) 113 MG/DL BUN (test code = 2208) 22 MG/DL CREATININE (test code = 2214) 0.9 MG/DL eGFR AMER. (test code 85 ML/MIN/1.73 = 46466) eGFR NON- AMER. (test 70 ML/MIN/1.73 code = 78934) CALCULATED BUN/CREAT (test 24 RATIO code = [...] code = 2219) 24 U/L COMPREHENSIVE METABOLIC [id number] 00:00:00 Test Item Value Reference Range Interpretation Comments GLUCOSE (test code = 2217) 113 MG/DL BUN (test code = 2208) 22 MG/DL CREATININE (test code = 2214) 0.9 MG/DL eGFR AMER. (test code 85 ML/MIN/1.73 = 78076) eGFR NON- AMER. (test 70 ML/MIN/1.73 code = 62761) CALCULATED BUN/CREAT (test 24 RATIO code = [...] code = 2219) 24 U/L CBC W/AUTO [id number] 00:00:00 Test Item Value Reference Range Interpretation [...] code = 1015) 270 K/UL CBC W/AUTO [id number] 00:00:00 Test Item Value Reference Range Interpretation [...] code = 1015) 270 K/UL CBC W/AUTO [id number] 00:00:00 Test Item Value Reference Range Interpretation [...] (test code = 1015) 270 K/UL HEMOGLOBIN [id number] 00:00:00 Test Item Value Reference Range Interpretation Comments HEMOGLOBIN A1c (test code = 25668) 7.3 % HEMOGLOBIN [id number] 00:00:00 Test Item Value Reference Range Interpretation Comments HEMOGLOBIN A1c (test code = 75943) 7.3 % HEMOGLOBIN [id number] 00:00:00 Test Item Value Reference Range Interpretation Comments HEMOGLOBIN A1c (test code = 01227) 7.3 % COMPREHENSIVE METABOLIC [id number] 00:00:00 Test Item Value Reference Range Interpretation Comments GLUCOSE (test code = 2217) 113 MG/DL BUN (test code = 2208) 22 MG/DL CREATININE (test code = 2214) 0.9 MG/DL eGFR AMER. (test code 85 ML/MIN/1.73 = 78794) eGFR NON- AMER. (test 70 ML/MIN/1.73 code = 43630) CALCULATED BUN/CREAT (test 24 RATIO code = [...] code = 2219) 24 U/L COMPREHENSIVE METABOLIC [id number] 00:00:00 Test Item Value Reference Range Interpretation Comments GLUCOSE (test code = 2217) 113 MG/DL BUN (test code = 2208) 22 MG/DL CREATININE (test code = 2214) 0.9 MG/DL eGFR AMER. (test code 85 ML/MIN/1.73 = 04248) eGFR NON- AMER. (test 70 ML/MIN/1.73 code = 53805) CALCULATED BUN/CREAT (test 24 RATIO code = [...] code = 2219) 24 U/L CBC W/AUTO [id number] 00:00:00 Test Item Value Reference Range Interpretation [...] code = 1015) 270 K/UL CBC W/AUTO [id number] 00:00:00 Test Item Value Reference Range Interpretation [...] code = 1015) 270 K/UL CBC W/AUTO [id number] 00:00:00 Test Item Value Reference Range Interpretation [...] (test code = 1015) 270 K/UL HEMOGLOBIN [id number] 00:00:00 Test Item Value Reference Range Interpretation Comments HEMOGLOBIN A1c (test code = 70674) 7.3 % HEMOGLOBIN [id number] 00:00:00 Test Item Value Reference Range Interpretation Comments HEMOGLOBIN A1c (test code = 65912) 7.3 % HEMOGLOBIN [id number] 00:00:00 Test Item Value Reference Range Interpretation Comments HEMOGLOBIN A1c (test code = 95006) 7.3 % COMPREHENSIVE METABOLIC [id number] 00:00:00 Test Item Value Reference Range Interpretation Comments GLUCOSE (test code = 2217) 113 MG/DL BUN (test code = 2208) 22 MG/DL CREATININE (test code = 2214) 0.9 MG/DL eGFR AMER. (test code 85 ML/MIN/1.73 = 10076) eGFR NON- AMER. (test 70 ML/MIN/1.73 code = 35542) CALCULATED BUN/CREAT (test 24 RATIO code = [...] code = 2219) 24 U/L COMPREHENSIVE METABOLIC [id number] 00:00:00 Test Item Value Reference Range Interpretation Comments GLUCOSE (test code = 2217) 113 MG/DL BUN (test code = 2208) 22 MG/DL CREATININE (test code = 2214) 0.9 MG/DL eGFR AMER. (test code 85 ML/MIN/1.73 = 91508) eGFR NON- AMER. (test 70 ML/MIN/1.73 code = 02627) CALCULATED BUN/CREAT (test 24 RATIO code = [...] code = 2219) 24 U/L CBC W/AUTO [id number] 00:00:00 Test Item Value Reference Range Interpretation [...] code = 1015) 270 K/UL CBC W/AUTO [id number] 00:00:00 Test Item Value Reference Range Interpretation [...] code = 1015) 270 K/UL CBC W/AUTO [id number] 00:00:00 Test Item Value Reference Range Interpretation [...] (test code = 1015) 270 K/UL HEMOGLOBIN [id number] 00:00:00 Test Item Value Reference Range Interpretation Comments HEMOGLOBIN A1c (test code = 83913) 7.3 % HEMOGLOBIN [id number] 00:00:00 Test Item Value Reference Range Interpretation Comments HEMOGLOBIN A1c (test code = 03610) 7.3 % HEMOGLOBIN [id number] 00:00:00 Test Item Value Reference Range Interpretation Comments HEMOGLOBIN A1c (test code = 94175) 7.3 % COMPREHENSIVE METABOLIC [id number] 00:00:00 Test Item Value Reference Range Interpretation Comments GLUCOSE (test code = 2217) 113 MG/DL BUN (test code = 2208) 22 MG/DL CREATININE (test code = 2214) 0.9 MG/DL eGFR AMER. (test code 85 ML/MIN/1.73 = 73149) eGFR NON- AMER. (test 70 ML/MIN/1.73 code = 85241) CALCULATED BUN/CREAT (test 24 RATIO code = [...] code = 2219) 24 U/L COMPREHENSIVE METABOLIC [id number] 00:00:00 Test Item Value Reference Range Interpretation Comments GLUCOSE (test code = 2217) 113 MG/DL BUN (test code = 2208) 22 MG/DL CREATININE (test code = 2214) 0.9 MG/DL eGFR AMER. (test code 85 ML/MIN/1.73 = 61008) eGFR NON- AMER. (test 70 ML/MIN/1.73 code = 08758) CALCULATED BUN/CREAT (test 24 RATIO code = [...] code = 2219) 24 U/L CBC W/AUTO [id number] 00:00:00 Test Item Value Reference Range Interpretation [...] code = 1015) 270 K/UL CBC W/AUTO [id number] 00:00:00 Test Item Value Reference Range Interpretation [...] code = 1015) 270 K/UL CBC W/AUTO [id number] 00:00:00 Test Item Value Reference Range Interpretation [...] (test code = 1015) 270 K/UL HEMOGLOBIN [id number] 00:00:00 Test Item Value Reference Range Interpretation Comments HEMOGLOBIN A1c (test code = 51588) 7.3 % HEMOGLOBIN [id number] 00:00:00 Test Item Value Reference Range Interpretation Comments HEMOGLOBIN A1c (test code = 31288) 7.3 % HEMOGLOBIN [id number] 00:00:00 Test Item Value Reference Range Interpretation Comments HEMOGLOBIN A1c (test code = 58946) 7.3 % COMPREHENSIVE METABOLIC [id number] 00:00:00 Test Item Value Reference Range Interpretation Comments GLUCOSE (test code = 2217) 113 MG/DL BUN (test code = 2208) 22 MG/DL CREATININE (test code = 2214) 0.9 MG/DL eGFR AMER. (test code 85 ML/MIN/1.73 = 13795) eGFR NON- AMER. (test 70 ML/MIN/1.73 code = 77554) CALCULATED BUN/CREAT (test 24 RATIO code = [...] code = 2219) 24 U/L COMPREHENSIVE METABOLIC [id number] 00:00:00 Test Item Value Reference Range Interpretation Comments GLUCOSE (test code = 2217) 113 MG/DL BUN (test code = 2208) 22 MG/DL CREATININE (test code = 2214) 0.9 MG/DL eGFR AMER. (test code 85 ML/MIN/1.73 = 28499) eGFR NON- AMER. (test 70 ML/MIN/1.73 code = 89027) CALCULATED BUN/CREAT (test 24 RATIO code = [...] code = 2219) 24 U/L CBC W/AUTO [id number] 00:00:00 Test Item Value Reference Range Interpretation [...] code = 1015) 270 K/UL CBC W/AUTO [id number] 00:00:00 Test Item Value Reference Range Interpretation [...] code = 1015) 270 K/UL CBC W/AUTO [id number] 00:00:00 Test Item Value Reference Range Interpretation [...] (test code = 1015) 270 K/UL HEMOGLOBIN [id number] 00:00:00 Test Item Value Reference Range Interpretation Comments HEMOGLOBIN A1c (test code = 83159) 7.3 % HEMOGLOBIN [id number] 00:00:00 Test Item Value Reference Range Interpretation Comments HEMOGLOBIN A1c (test code = 85263) 7.3 % HEMOGLOBIN [id number] 00:00:00 Test Item Value Reference Range Interpretation Comments HEMOGLOBIN A1c (test code = 86379) 7.3 % COMPREHENSIVE METABOLIC [id number] 00:00:00 Test Item Value Reference Range Interpretation Comments GLUCOSE (test code = 2217) 113 MG/DL BUN (test code = 2208) 22 MG/DL CREATININE (test code = 2214) 0.9 MG/DL eGFR AMER. (test code 85 ML/MIN/1.73 = 82379) eGFR NON- AMER. (test 70 ML/MIN/1.73 code = 95052) CALCULATED BUN/CREAT (test 24 RATIO code = [...] code = 2219) 24 U/L COMPREHENSIVE METABOLIC [id number] 00:00:00 Test Item Value Reference Range Interpretation Comments GLUCOSE (test code = 2217) 113 MG/DL BUN (test code = 2208) 22 MG/DL CREATININE (test code = 2214) 0.9 MG/DL eGFR AMER. (test code 85 ML/MIN/1.73 = 60945) eGFR NON- AMER. (test 70 ML/MIN/1.73 code = 22288) CALCULATED BUN/CREAT (test 24 RATIO code = [...] code = 2219) 24 U/L CBC W/AUTO [id number] 00:00:00 Test Item Value Reference Range Interpretation [...] code = 1015) 270 K/UL CBC W/AUTO [id number] 00:00:00 Test Item Value Reference Range Interpretation [...] code = 1015) 270 K/UL CBC W/AUTO [id number] 00:00:00 Test Item Value Reference Range Interpretation [...] (test code = 1015) 270 K/UL HEMOGLOBIN [id number] 00:00:00 Test Item Value Reference Range Interpretation Comments HEMOGLOBIN A1c (test code = 25166) 7.3 % HEMOGLOBIN [id number] 00:00:00 Test Item Value Reference Range Interpretation Comments HEMOGLOBIN A1c (test code = 80421) 7.3 % HEMOGLOBIN [id number] 00:00:00 Test Item Value Reference Range Interpretation Comments HEMOGLOBIN A1c (test code = 41484) 7.3 % COMPREHENSIVE METABOLIC [id number] 00:00:00 Test Item Value Reference Range Interpretation Comments GLUCOSE (test code = 2217) 113 MG/DL BUN (test code = 2208) 22 MG/DL CREATININE (test code = 2214) 0.9 MG/DL eGFR AMER. (test code 85 ML/MIN/1.73 = 99776) eGFR NON- AMER. (test 70 ML/MIN/1.73 code = 25499) CALCULATED BUN/CREAT (test 24 RATIO code = [...] code = 2219) 24 U/L COMPREHENSIVE METABOLIC [id number] 00:00:00 Test Item Value Reference Range Interpretation Comments GLUCOSE (test code = 2217) 113 MG/DL BUN (test code = 2208) 22 MG/DL CREATININE (test code = 2214) 0.9 MG/DL eGFR AMER. (test code 85 ML/MIN/1.73 = 33659) eGFR NON- AMER. (test 70 ML/MIN/1.73 code = 61339) CALCULATED BUN/CREAT (test 24 RATIO code = [...] code = 2219) 24 U/L CBC W/AUTO [id number] 00:00:00 Test Item Value Reference Range Interpretation [...] code = 1015) 270 K/UL CBC W/AUTO [id number] 00:00:00 Test Item Value Reference Range Interpretation [...] code = 1015) 270 K/UL CBC W/AUTO [id number] 00:00:00 Test Item Value Reference Range Interpretation [...] (test code = 1015) 270 K/UL HEMOGLOBIN [id number] 00:00:00 Test Item Value Reference Range Interpretation Comments HEMOGLOBIN A1c (test code = 68388) 7.3 % HEMOGLOBIN [id number] 00:00:00 Test Item Value Reference Range Interpretation Comments HEMOGLOBIN A1c (test code = 12926) 7.3 % HEMOGLOBIN [id number] 00:00:00 Test Item Value Reference Range Interpretation Comments HEMOGLOBIN A1c (test code = 12105) 7.3 % COMPREHENSIVE METABOLIC [id number] 00:00:00 Test Item Value Reference Range Interpretation Comments GLUCOSE (test code = 2217) 113 MG/DL BUN (test code = 2208) 22 MG/DL CREATININE (test code = 2214) 0.9 MG/DL eGFR AMER. (test code 85 ML/MIN/1.73 = 97117) eGFR NON- AMER. (test 70 ML/MIN/1.73 code = 57901) CALCULATED BUN/CREAT (test 24 RATIO code = [...] code = 2219) 24 U/L CBC W/AUTO [id number] 00:00:00 Test Item Value Reference Range Interpretation [...] code = 1015) 270 K/UL CBC W/AUTO [id number] 00:00:00 Test Item Value Reference Range Interpretation [...] (test code = 1015) 270 K/UL HEMOGLOBIN [id number] 00:00:00 Test Item Value Reference Range Interpretation Comments HEMOGLOBIN A1c (test code = 72773) 7.3 % HEMOGLOBIN [id number] 00:00:00 Test Item Value Reference Range Interpretation Comments HEMOGLOBIN A1c (test code = 24640) 7.3 % COMPREHENSIVE METABOLIC [id number] 00:00:00 Test Item Value Reference Range Interpretation Comments GLUCOSE (test code = 2217) 113 MG/DL BUN (test code = 2208) 22 MG/DL CREATININE (test code = 2214) 0.9 MG/DL eGFR AMER. (test code 85 ML/MIN/1.73 = 73660) eGFR NON- AMER. (test 70 ML/MIN/1.73 code = 40764) CALCULATED BUN/CREAT (test 24 RATIO code = [...] code = 2219) 24 U/L COMPREHENSIVE METABOLIC [id number] 00:00:00 Test Item Value Reference Range Interpretation Comments GLUCOSE (test code = 2217) 113 MG/DL BUN (test code = 2208) 22 MG/DL CREATININE (test code = 2214) 0.9 MG/DL eGFR AMER. (test code 85 ML/MIN/1.73 = 19759) eGFR NON- AMER. (test 70 ML/MIN/1.73 code = 31067) CALCULATED BUN/CREAT (test 24 RATIO code = [...] code = 2219) 24 U/L CBC W/AUTO [id number] 00:00:00 Test Item Value Reference Range Interpretation [...] code = 1015) 270 K/UL CBC W/AUTO [id number] 00:00:00 Test Item Value Reference Range Interpretation [...] code = 1015) 270 K/UL CBC W/AUTO [id number] 00:00:00 Test Item Value Reference Range Interpretation [...] (test code = 1015) 270 K/UL HEMOGLOBIN [id number] 00:00:00 Test Item Value Reference Range Interpretation Comments HEMOGLOBIN A1c (test code = 68073) 7.3 % HEMOGLOBIN [id number] 00:00:00 Test Item Value Reference Range Interpretation Comments HEMOGLOBIN A1c (test code = 32292) 7.3 % HEMOGLOBIN [id number] 00:00:00 Test Item Value Reference Range Interpretation Comments HEMOGLOBIN A1c (test code = 35468) 7.3 % COMPREHENSIVE METABOLIC [id number] 00:00:00 Test Item Value Reference Range Interpretation Comments GLUCOSE (test code = 2217) 113 MG/DL BUN (test code = 2208) 22 MG/DL CREATININE (test code = 2214) 0.9 MG/DL eGFR AMER. (test code 85 ML/MIN/1.73 = 34082) eGFR NON- AMER. (test 70 ML/MIN/1.73 code = 68096) CALCULATED BUN/CREAT (test 24 RATIO code = [...] code = 2219) 24 U/L COMPREHENSIVE METABOLIC [id number] 00:00:00 Test Item Value Reference Range Interpretation Comments GLUCOSE (test code = 2217) 113 MG/DL BUN (test code = 2208) 22 MG/DL CREATININE (test code = 2214) 0.9 MG/DL eGFR AMER. (test code 85 ML/MIN/1.73 = 21344) eGFR NON- AMER. (test 70 ML/MIN/1.73 code = 37576) CALCULATED BUN/CREAT (test 24 RATIO code = 2235) SODIUM (test code = 2231) 138 MEQ/L POTASSIUM (test code = 2228) 4.6 MEQ/L CHLORIDE (test code = 2215) 102 MEQ/L CARBON DIOXIDE (test code = 22 MEQ/L 2205) CALCIUM (test code = 2209) 10.6 MG/DL PROTEIN, TOTAL (test code = 8.1 G/DL 222) ALBUMIN (test code = 2201) 4.7 G/DL CALCULATED GLOBULIN (test code 3.4 G/DL = 2240) CALCULATED A/G RATIO (test 1.4 RATIO code = 2234) BILIRUBIN, TOTAL (test code = 0.4 MG/DL 2206) ALKALINE PHOSPHATASE (test 50 U/L code = 220) SGOT (AST) (test code = 2218) 21 U/L SGPT (ALT) (test code = 2219) 24 U/L CBC W/AUTO [id number] 00:00:00 Test Item Value Reference Range Interpretation [...] code = 1015) 270 K/UL CBC W/AUTO [id number] 00:00:00 Test Item Value Reference Range Interpretation [...] code = 1015) 270 K/UL CBC W/AUTO [id number] 00:00:00 Test Item Value Reference Range Interpretation [...] (test code = 1015) 270 K/UL HEMOGLOBIN [id number] 00:00:00 Test Item Value Reference Range Interpretation Comments HEMOGLOBIN A1c (test code = 10459) 7.3 % HEMOGLOBIN [id number] 00:00:00 Test Item Value Reference Range Interpretation Comments HEMOGLOBIN A1c (test code = 65457) 7.3 % HEMOGLOBIN [id number] 00:00:00 Test Item Value Reference Range Interpretation Comments HEMOGLOBIN A1c (test code = 50090) 7.3 % COMPREHENSIVE METABOLIC [id number] 00:00:00 Test Item Value Reference Range Interpretation Comments GLUCOSE (test code = 2217) 113 MG/DL BUN (test code = 2208) 22 MG/DL CREATININE (test code = 2214) 0.9 MG/DL eGFR AMER. (test code 85 ML/MIN/1.73 = 92093) eGFR NON- AMER. (test 70 ML/MIN/1.73 code = 34097) CALCULATED BUN/CREAT (test 24 RATIO code = [...] code = 2219) 24 U/L COMPREHENSIVE METABOLIC [id number] 00:00:00 Test Item Value Reference Range Interpretation Comments GLUCOSE (test code = 2217) 113 MG/DL BUN (test code = 2208) 22 MG/DL CREATININE (test code = 2214) 0.9 MG/DL eGFR AMER. (test code 85 ML/MIN/1.73 = 83916) eGFR NON- AMER. (test 70 ML/MIN/1.73 code = 45919) CALCULATED BUN/CREAT (test 24 RATIO code = [...] code = 2219) 24 U/L CBC W/AUTO [id number] 00:00:00 Test Item Value Reference Range Interpretation [...] code = 1015) 270 K/UL CBC W/AUTO [id number] 00:00:00 Test Item Value Reference Range Interpretation [...] code = 1015) 270 K/UL CBC W/AUTO [id number] 00:00:00 Test Item Value Reference Range Interpretation [...] (test code = 1015) 270 K/UL HEMOGLOBIN [id number] 00:00:00 Test Item Value Reference Range Interpretation Comments HEMOGLOBIN A1c (test code = 76349) 7.3 % HEMOGLOBIN [id number] 00:00:00 Test Item Value Reference Range Interpretation Comments HEMOGLOBIN A1c (test code = 23143) 7.3 % HEMOGLOBIN [id number] 00:00:00 Test Item Value Reference Range Interpretation Comments HEMOGLOBIN A1c (test code = 19238) 7.3 % Notes Date/Time Note Provider Source 2021-08-02 21:55:00-00:[address] [facility] ([facility]) DT Operative Note REPORT#:[id number] REPORT STATUS: Signed DATE:08/02/21 TIME: 2154 PATIENT: MARGE FRANCO UNIT #: [id number] ROOM/BED: : 78 AGE: 41 SEX: F ATTEND: Bebeto Quiroga MD ADM AUTHOR: Bebeto Quiroga MD * ALL edits or amendments must be made on the [employer]/computer document * Operative Report Operative Note Note: DATE OF SERVICE: 07/31/21 PREOPERATIVE DIAGNOSIS: left volar wrist ganglio n cyst POSTOPERATIVE DIAGNOSIS: left volar wrist gangli on cyst OPERATION PERFORMED: left volar wrist ganglion c yst excision SURGEON: Bebeto Quiroga TRAVEL PHYSICAL THERAPIST SURGEON: Diaz simmons ANESTHESIA: general with local [...] was then prepped and draped in the [facility] sterile fashion. The arm was then [...] Bebeto Quiroga MD on 07/12 09/[address] [place] [address] #:[id number] END OF REPORT 2020-02-13 22:19:00-00:00 [phone] [place] [address] PATIENT NAME: Marge Franco ADMIT DATE: 0 ACCOUNT NO: [id number] ROOM NO: AGE: 40 REPORT TYPE: HISTORY AND PHYSICAL SEX: F ADMITTING PHYSICIAN: ATTENDING PHYSICIAN:Judi Hodge DO ADMISSION DATE: 02/13/2020 HISTORY OF PRESENT ILLNESS: The patient is a 40- year-old female who is status post a right posterior tibial tendon reconstruct ion with debridement on 01/16/2020 at [facility]. Today, she was walking the stairs, felt a pop on the back of her operative leg in t he Achilles area and felt significant pain. She was brought to [facility] for evaluation. Presently in [facility], she is in significant pain and [...] By: Judi Hodge DO WT: HP:DANY/NEYMAR/GM Conf#: [id number]/DID#: [id number] Authenticated by Judi Hodge DO On 0 07:57:56 AM Electronically Signed by Judi Hodge DO on 0 03/17/20 at 0758 PATIENT NAME: Marge Franco [age] 2020-01-16 12:10:00-00:00 [id number] [place] [address] PATIENT NAME: MARGE FRANCO ADMIT DREW E: 01/16/20 ACCOUNT NO: [id number] ROOM NO: AGE: 39 REPORT TYPE: OPERATIVE [...] Achilles lengtheni ng. SURGEON: Elbert Wilson MD TRAVEL PHYSICAL THERAPIST: LINDSAY Palma ANESTHESIA: General LMA with intraoperative [...] ligaments that were plicated with #2 FiberWire itxhod-zg-horse sutures. Once this was complete, a small [...] By: Elbert Wilson MD WT: OP:DANY/JENNY/GM Conf#: [id number]/DID#: [id number] Authenticated by Elbert Wilson MD On 01/19/2020 06:47:49 AM Electronically Signed by Elbert Wilson MD on at 0648 PATIENT NAME: MARGE FRANCO "
[2022-12-27 12:01] VITALS: BP 165/97; TEMP 97.1; O2SAT 98
== END 2022-12-27 11:25 | disposition home or self-care (01) ==
LOC: ER 07:13
DX: K85.90 Acute pancreatitis without necrosis or infection, unspecified (principal); E11.9 Type 2 diabetes mellitus without complications; I10 Essential (primary) hypertension
CPT/HCPCS: 85025; 81001; 36415; 81025; 83690; 80053; 74177; 96375; 96374; 99284; Q9967; J2550 ×2; J1170 ×2; J7030 ×2

== ENCOUNTER 2023-02-09 17:22 | Emergency (ER) | payer OTHER ==
[2023-02-09] MEDS ORDERED: KETOROLAC 30 MG/ML INJ ONE (18:34)
[2023-02-09] MEDS ORDERED: FAMOTIDINE 20 MG/2 ML VIAL IV ONE (18:34)
[2023-02-09] MEDS ORDERED: NA CHLORIDE 0.9% 1,000 ML ONE ×2 (18:34→20:25)
[2023-02-09] MEDS ORDERED: ONDANSETRON 4 MG/2 ML VIAL ONE (18:34)
--- OUTSIDE RECORDS SUMMARY | 2023-02-09 18:34 | XMS REPORT | Continuity of Care Document ---
:[address] [facility] t Address [address] [place] [address] Care Team Providers Name Role Phone [phone] Primary Care Physician Unavailable Bebeto Quiroga Attending Clinician Unavailable Elbert Wilson Attending Clinician Unavailable ORLY THORPE Attending Clinician Unavailable AMNA CUTLER Attending Clinician Unavailable ARLENE RAIN I Attending Clinician Unavailable NETO PEOPLES Attending Clinician Unavailable ZOYA GONZALEZ Attending Clinician Unavailable NICOLÁS EID Attending Clinician Unavailable GUDELIA GARCIA Attending Clinician Unavailable Ngoc Tinajero MD Attending Clinician Gudelia Garcia DO Attending Clinician LAB03 Attending Clinician Unavailable MD DONALD Attending Clinician Unavailable JUDI MCCLELLAND Attending Clinician Unavailable IVELISSE MORRISON Attending Clinician Unavailable Loni PROJECT ARCHITECT, Katelyn Attending Clinician KATELYN IVEY Attending Clinician Unavailable FABIO ZAMORA Attending Clinician Unavailable YRIS HARRIS Attending Clinician Unavailable Delvin FREEMAN, Leslie Monaco Attending Clinician MERI WRAY Attending Clinician Unavailable Robert Luzt MD Attending Clinician Meri Wray MD Attending Clinician BEATRIZ EDUARDO Attending Clinician Unavailable Alesha ANDERSON, Beatriz Cross Attending Clinician JN MILLER Attending Clinician Unavailable Jn Miller DO Attending Clinician José Miguel PROJECT ARCHITECT, Jade Attending Clinician FOZIA JANG Attending Clinician Unavailable Fozia Jang MD Attending Clinician MARY JAY Attending Clinician Unavailable Mary Lopez Attending Clinician Doron Grijalva MD Attending Clinician DORON GRIJALVA Attending Clinician Unavailable FABIO AVALOS Attending Clinician Unavailable BRYSON GONZALEZ Attending Clinician Unavailable Lily Deleon PA-C Attending Clinician LESLEE SMITH Attending Clinician Unavailable LILY DELEON Attending Clinician Unavailable Doctor Unassigned, [place] Attending Clinician Unavailable STANISLAW SUN Attending Clinician Unavailable Kit Lopez Attending Clinician Unavailable KNOW, DOES_NOT Admitting Clinician Unavailable Elbert Wilson Admitting Clinician Unavailable Physician, No Primary or Family Admitting Clinician UnavailGUDELIA Candelaria Admitting Clinician Unavailable Gudelia Garcia DO Admitting Clinician MERI WRAY Admitting Clinician Unavailable Meri Wray MD Admitting Clinician LONI CHRISTINAANTWAN Admitting Clinician Unavailable BEATRIZ EDUARDO Admitting Clinician Unavailable JN MILLER Admitting Clinician Unavailable Bebeto Quiroga Admitting Clinician Unavailable FOZIA JANG Admitting Clinician Unavailable MARY JAY Admitting Clinician Unavailable Kit Lopez Admitting Clinician Unavailable Payers Payer Name Policy Type Policy Number Effective Date Expiration Date Nakul zavala CIGNA GENERIC [id number] 2019 00:00:00 AETNA MP CVS 9 [id number] 2022 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 00:00:00 ON STAND [employer]ETNA COMMERCIAL [id number] 2022 OUT OF NETWORK 00:00:00 COMMERCIAL [id number] 2021 NON-CONTRACT 00:00:00 GENERIC Problems Condition Condition Condition Status Onset Resolution Last Treating Co mments Source Name Details Category Date Date Treatment Clinician Date Generalize Generalize Disease Active U antonella love 703 ity of abdominal [place] Immunodefi Immunodefi Disease Active K devi ciency due ciency due 3-06 Se [...] 2 DM type 2 Disease Active Spencer sey with with 2-28 Seybold diabetic diabetic 00:00: - mixed mixed 00 Externa hyperlipid hyperlipid l emia emia Hypertrigl Hypertrigl Disease Active U nivers yceridemia yceridemia 2-16 it y of 00:00: Medical Branch Essential Essential Disease Active Uni vers hypertensi hypertensi 5-26 it y of on on 00:00: Medical Branch POTS POTS Disease Active Univers (postural (postural 5-26 ity of orthostati orthostati [place] c c 00 Medical tachycardi tachycardi Br anch a a syndrome) syndrome) Dyslipidem Dyslipidem Disease Active U nivers ia ia 5-26 ity of 00:00: [facility] Atypical Atypical Disease Active Unive rs chest pain chest pain 5-25 it y of 00:00: [facility] Pancreatit Pancreatit Disease Active U nivers is, is, 4-24 ity of recurrent recurrent 00:00[place] [facility] Pain at Pain at Disease Active Univers surgical surgical 1-30 ity of incision incision 00:00: [facility] Mood Mood Disease Active Univers swings swings 1-30 ity of 00:00: [facility] Gestationa Gestationa Disease Active 2012-07 U nivers l l 2-21 ity of hypertensi hypertensi 00:[place] Gestationa Gestationa Disease Active 2012-07 U nivers l l 2-21 ity of hypertensi hypertensi 00:[place] Ventral Ventral Disease Active 2012-07 Univers hernia hernia 2-21 ity of 00:00: [place] [facility] 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 [...] Active U nivers d anxiety d anxiety 718 ity of disorder disorder 00:00: [place] 00 Medical Branch Not immune Not immune Disease Active Overview : Univers to rubella to rubella 12-14 Formattin ity of 00:00: g of this [place] 00 note Medical might be Branch different from the original. 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 Immune to Immune to Disease Active Uni vers varicella varicella 12-14 ity of 00:00: [place] 00 Medical Branch Morbid Morbid Disease Active Univers obesity obesity 3-02 ity of 00:00: [place] [facility] Type 2 Type 2 Disease Active Overview: Univer s diabetes diabetes 11-13 Formattin ity of mellitus mellitus 00:00: g [...] 00 [facility] [place] Active [place] [facility]- [place] 00:00: [facility] 00 [facility] tequ[place] DA Active [place] hives [facility] 1-20 [place] 00:00: [facility] 00 [facility] alcohol FA Active [place] 2019- [facility] 7- [place] 00:00: Orthope 00 [facility] alcohol FA Active [place] [facility]ES [facility] - [place] 00:00: Orthope 00 [facility] tequila DA Active [place] hives [facility] 7- [place] 00:00: [facility] 00 [facility] alcohol FA Active [place] 2015-07 [facility] 2-27 [place] 00:00: Orthope 00 [facility] alcohol FA Active [place] TURNS RED 2015-07 [facility] 2-27 [place] 00:00: Orthope 00 dic Hospita l NO KNOWN Drug Active Univers ALLERGIE Class ity of S [place] [facility] Social History Social Habit Start Date Stop Date Quantity Comments Source Gender identity 2022-09-10 Identifies as Andreea Corona - 07:38:03 female gender External (finding) History SDOH University o f Social Connections [place] [facility] Get Together Branch History SDOH University o f Social Connections [place] [facility] Restorationism Branch History SDOH University o f Social Connections [place] [facility] Membership Branch History SDOH University o f Social Connections [place] [facility] Meetings Branch History SDOH University o f Alcohol Std Drinks [place] [facility] History SDOH University o f Alcohol Binge [place] [facility] Sexual orientation Andreea Corona - External History SDOH 2023-01-11 2023-01-11 5 University o f Social Connections 00:00:00 00:00:00 [place] [facility] Phone Branch History SDOH 2023-01-11 2023-01-11 5 University o f Social Connections 00:00:00 00:00:00 [place] [facility] Living Branch History SDOH 2023-01-11 2023-01-11 0 University o f Physical Activity 00:00:00 00:00:00 [place] M edical DPW Branch History SDOH 2023-01-11 2023-01-11 0 University o f Physical Activity 00:00:00 00:00:00 [place] M edical MPS Branch History SDOH 2023-01-11 2023-01-11 5 University o f Financial 00:00:00 00:00:00 [place] [facility] History SDOH Food 2023-01-11 2023-01-11 1 Univers ity of Worry 00:00:00 00:00:00 [place] [facility] History SDOH Food 2023-01-11 2023-01-11 1 Univers ity of Scarcity 00:00:00 00:00:00 [place] [facility] History SDOH 2023-01-11 2023-01-11 2 University o f Transport Med 00:00:00 00:00:00 [place] [facility] al Branch History SDOH 2023-01-11 2023-01-11 2 University o f Transport Non-Med 00:00:00 00:00:00 [place] M edical Branch History SDOH 2023-01-11 2023-01-11 2 University o f Housing Unable to 00:00:00 00:00:00 [place] M edical Pay Branch History SDOH 2023-01-11 2023-01-11 1 University o f Housing Places 00:00:00 00:00:00 [facility] bonita Lived Branch History SDOH 2023-01-11 2023-01-11 2 University o f Housing Homeless 00:00:00 00:00:00 [place] Me dical Last Year Branch History SDIL 2023-01-11 2023-01-11 1 University o f Alcohol Frequency 00:00:00 00:00:00 [place] M edical Branch Education 2023-01-10 2023-01-10 14 University of 00:00:00 00:00:00 [facility] Alcohol intake 2023-01-04 2023-01-04 Ex-drinker Andreea santos - 00:00:00 00:00:00 (finding) External Exposure to 2022-10-24 2022-11-03 Not sure [facility] SARS-CoV-2 (event) 00:00:00 08:52:00 [facility] History of Social 2022-09-07 2022-09-07 Andreea Traoreold - function 00:00:00 00:00:00 External Tobacco use and 2022-08-26 2022-08-26 Smokeless tobacco Un iversity of exposure 00:00:00 00:00:00 non-user [facility] Alcohol Comment 2019-08-15 2019-08-15 ocassionally Univers ity of 00:00:00 00:00:00 [facility] Sex [birth year] At [birth year] F Andreea baumannold - 00:00:00 00:00:00 External Smoking Status Start Date Stop Date Source Never smoked tobacco [facility] [place] [facility] Medications Ordered Filled Start Stop Current Ordering Indication Dosage Frequency Signature Comments Components Source Medication Medication Date Date Medication? Clinician (SIG) Name Name [place]-3 Yes 1{capsu Take 1 Unive rs Fatty 7-05 le} capsule by ity of Acids-Vitam 11:23: mouth [place] in E 44 the Medical 2,000-650-1 morning Branc h 2 mg/2.5 and 1 gram ElPk capsule in the evening. insulin Yes 16U inject 16 Unive rs aspart 7-05 Units ity of injection 11:23: under the [place] as 44 skin in Medical the Branch morning and 16 Units at noon and 16 Units in the evening. inject before meals. FLUoxetine Yes 10mg Take 1 Unive rs (PROZAC) 10 01-12 capsule by it y of mg capsule 11:23: mouth in [place] as 44 the Medical morning. Branch dapaglifloz Yes Take by Uni vers in 01-12 mouth. Not ity of propanediol 11:23: sure of [place] as (FARXIGA 44 dose Medical ORAL) Branch doxycycline 202- Yes [id number] 100mg Take 1 Univers hyclate 100 01-1216 capsule by i ty of mg capsule 00:00: 04:59 mouth [place] 00 :00 every 12 Medical (twelve) Branch hours for 10 days. metroNIDAZO 2022- Yes [id number] 500mg Take 1 Univers LE 500 mg 01-1216 tablet by ity of tablet 00:00: 04:59 mouth [place] 00 :00 every 12 Medical (twelve) Branch hours for 10 days. ondansetron 2022- Yes [id number] 4mg Take 1 Univers 4 mg 01-1216 tablet by ity of disintegrat 00:00: 04:59 [place] ing tablet 00 :00 every 8 Medica l (eight) Branch hours as needed for Nausea and Vomiting (N/V) for up to 10 days. lisinopriL Yes 2.5mg 2.5 mg, Uni vers (PRINIVIL,Z 01-11 Oral, ity of ESTRIL) 14:00: DAILY, [place] tablet 2.5 00 First dose Med ical mg on Tue01/11/23 at 0900, Until Discontinu ed, Routine fenofibrate Yes 134mg 134 mg, Un fabiana micronized 01-11 Oral, ity of (LOFIBRA) 14:00: DAILY, [place] capsule 134 00 First dose Me dical mg on Tue01/11/23 at 0900, Until Discontinu ed, Routine FLUoxetine Yes 10mg 10 mg, Unive rs (PROZAC) 01-11 Oral, ity of capsule 10 14:00: DAILY, [place] mg 00 First dose Medical on Tue [place] 01/11/23 at 0900, Until Discontinu ed, Routine insulin Yes 16U 16 Units, Unive rs lispro 01-11 Subcutaneo ity of (human) 13:00: us, TID [place] (HumaLOG 00 MEALS, Medical U-100) First dose Branch injection on Tue 16 Units 01/11/23 at 0800, Until Discontinu ed doxycycline 2022- Yes 100mg 100 mg, U nivers hyclate 01-10 Oral, ity of (Vibramycin 23:00: 22:59 Q12HA2, 10 [place] ) capsule 00 :00 doses, Medical 100 mg First dose Branch on Tue01/10/23 at 1800, Last dose on 01/15/23 at 0600, MALAIKA
Re ason for Anti-Infec tive: Empiric Therapy for Suspected Infection< br>Empiric Therapy Site: Pelvic
Duration of therapy: 5 days enoxaparin Yes 40mg 40 mg, Unive rs (LOVENOX) 01-10 Subcutaneo ity of injection 22:00: [place], DAILY, [place] 40 mg 00 First dose Medical on Tue Branch 01/10/23 at 1700, Until Discontinu ed, Routine cefOXitin 2022- Yes 2g 2 g, Univers in 01-1008 Intravenou ity of dextrose, 21:00: 20:59 s, Q6H [place] iso-osm 00 :00 ABX, 20 Medical (MEFOXIN) 2 doses, Branch gram/50 mL First dose DUPLEX BAG on Tue 2 g 01/10/23 at 1600, Last dose on 01/15/23 at 1000, Administer over 30 Minutes, 50 mL
Reas on for Anti-Infec tive: Empiric Therapy for Suspected Infection< br>Empiric Therapy Site: Pelvic
Duration of therapy: 5 days proMETHazin Yes 25mg 25 mg, IV U nivers e 01-10 Piggyback, ity of (PHENERGAN) 19:30: Q4HPRN, [place] 25 mg in 17 Starting Medical NaCl 0.9% on Tue (NS) 50 mL 01/10/23 at IV 1430, piggyback Until Discontinu ed, Routine, N/V unresponsi ve to Ondansetro n lactated Yes 1000mL at 125 Unive rs ringers IV 03 mL/hr, ity of infusion 17:15: 1,000 mL, [place] 1,000 mL 00 IV Medical Infusion, Branch CONTINUOUS , Starting on Tue01/10/23 at 1215, Until Discontinu ed, Routine Sliding Yes Subcutaneo Univ ers Scale 01-10 us, TID ity of Insulin - 17:00: MEALS+HS, [place] as Lispro 00 First dose Medical (HumaLOG) on Tue Branch 01/10/23 at 1200, Until Discontinu ed, Routine lactated 2022- No 1000mL at 999 Univ ers ringers IV 01-1004 mL/hr, ity of infusion 17:00: 00:17 1,000 mL, [place] 1,000 mL 00 :00 Intravenou Medic al s, ONCE, 1 Branch dose, On Tue01/10/23 at 1200, Routine ondansetron 2022- No 4mg 4 mg, Slow Univers (ZOFRAN 01-10 IV Push, ity of (PF)) 16:45: 16:19 ONCE, 1 [place] injection 4 00 :00 dose, On Medi bonita mg Tue01/10/23 Branch at 1145, MALAIKA morpHINE (4 2022- No 4mg 4 mg, Slow Univers mg/mL) 01-10 IV Push, ity of injection 4 16:45: 16:20 ONCE, 1 [place] mg 00 :00 dose, On Medical Tue01/10/23 Branch at 1145, STAT metroNIDAZO 2022- No 500mg 500 mg, IV Univers LE in NaCl 01-10 Infusion, ity of (iso-os) 16:25: 20:39 ONCE, 1 [place] (FLAGYL 00 :00 dose, On Medical I.V.) RTU Tue01/10/23 Bran ch IV infusion at 1130, 500 mg Administer over 60 Minutes, 100 mL
R noah for Anti-Infec tive: Documented Infection< br>Documen faith Infection Site: Pelvic
Duration of Therapy: Other (see Comments) cefOXitin 2022- No 2g 2 g, Univers in 01-10 Intravenou ity of dextrose, 16:24: 22:13 s, ONCE, 1 [place] iso-osm 00 :00 dose, On Medical (MEFOXIN) 2 Tue01/10/23 Br anch gram/50 mL at 1130, DUPLEX BAG Administer 2 g over 30 Minutes, 50 mL
Reas on for Anti-Infec tive: Documented Infection< br>Documen faith Infection Site: Pelvic
Duration of Therapy: Other (see Comments) doxycycline 2022- No 100mg 100 mg, IV Univers (VIBRAMYCIN 01-10 Piggyback, i ty of ) 100 mg in 16:24: 19:24 ONCE, 1 [place] NaCl 0.9% 00 :00 dose, On Medica l (NS) 100 mL Tue01/10/23 Br anch MINI-BAG at 1130, Administer over 60 Minutes, 100 mL
R noah for Anti-Infec tive: Documented Infection< br>Documen faith Infection Site: Pelvic<br& gt;Duratio n of Therapy: Other (see Comments) ondansetron Yes 4mg 4 mg, Slow Univers (ZOFRAN 01-10 IV Push, ity of (PF)) 16:10: Q6HPRN, [place] injection 4 22 Starting Medi bonita mg on Tue Branch 01/10/23 at 1110, Until Discontinu ed, Routine, Nausea and Vomiting (N/V) glucagon Yes 1mg 1 mg, Univers (GLUCAGEN 01-10 Intramuscu ity of DIAGNOSTIC 16:08: lar, PRN, [place] KIT) 51 Starting Medical injection 1 on 01/10/23 at 1108, Until Discontinu ed, MALAIKA, Blood Glucose < or = 70 mg/dL and patient is NPO, unable to swallow or has mental changes. dextrose 50 0 Yes 25mL 25 mL, Univ ers % in water 01-10 Slow IV ity of (D50W) 16:08: Push, PRN, [place] injection 51 Starting Medica l 25 mL on Tue Branch 01/10/23 at 1108, Until Discontinu ed, MALAIKA, Blood Glucose < or = 70 mg/dL and patient is NPO, unable to swallow or has mental status changes. FENTanyl PF 2022- No 50ug 50 mcg, Un fabiana (SUBLIMAZE 01-10 Slow IV ity o f (PF)) 16:08: 16:07 Push, [place] injection 19 :19 Q3HPRN, Medical 50 mcg Starting Branch on Tue01/10/23 at 1108, Until Tu01/11/23 at 1107, Routine, Pain (scale 7-10) HYDROcodone 2022- No 1{tbl} 1 tablet, Univers -acetaminop 01-10 Oral, ity of hen (NORCO 16:08: 16:07 Q6HPRN, [place] 5) 5-325 mg 17 :17 Starting Medi bonita tablet 1 on Tue Branch tablet 01/10/23 at 1108, Until 01/12/23 at 1107, Routine, Pain (scale 4-6) acetaminoph Yes 650mg 650 mg, Un fabiana en 01-10 Oral, ity of (TYLENOL) 16:08: Q6HPRN, [place] tablet 650 14 Starting Medic al mg on Tue Branch 01/10/23 at 1108, Until Discontinu ed, Routine, Pain (scale 1-3) iopamidol 2022- No [id number] 73mL 73 mL, Univers (ISOVUE 01-10 Intravenou ity o f 370-500 mL) 16:00: 16:00 s, ONCE, 1 [place] injection 00 :00 dose, On Medica l 73 mL Tue01/10/23 Branch at 1100, Routine NaCl 0.9% 2022- No 1000mL at 999 Uni vers (NS) bolus 01-10 mL/hr, ity of infusion 14:15: 16:22 1,000 mL, [place] 1,000 mL 00 :00 IV Medical Infusion, Branch ONCE, 1 dose, On Tue01/10/23 at 0915, MALAIKA ondansetron 2022- No 4mg 4 mg, Slow Univers (ZOFRAN 01-10 IV Push, ity of (PF)) 13:30: 13:36 ONCE, 1 [place] injection 4 00 :00 dose, On Medi bonita mg 01/10/23 Branch at 0830, MALAIKA morpHINE (4 2022- No 4mg 4 mg, Slow Univers mg/mL) 01-10 07-03 IV Push, ity of injection 4 13:30: 13:36 ONCE, 1 [place] mg 00 :00 dose, On Medical 01/10/23 Branch at 0830, STAT Lisinopril 0 Yes 5mg Take 1 Kelse y 5 MG oral 6-27 tablet (5 Seybo ld Tablet 15:42: mg total) - 26 by mouth Externa daily l Spironolact 2022-0 2022- Yes [id number] 100mg Take 1 Andreea one 100 MG 6-27 12-25 tablet Seybol d oral Tablet 00:00: 05:59 (100 mg - 00 :00 total) by Externa mouth at l bedtime With full glass of water. Trazodone 0 Yes 1 1/2 Andreea HCl 100 MG 6-26 tablets QD Sey bold oral Tablet 00:00: - 00 Externa l Dapaglifloz 2022-0 2022- No 1{tbl} 1 tablet Andreea in 6-13 06-13 daily Seybold Propanediol 14:32: 00:00 - () 34 :00 Externa 10 MG oral l Tablet Lisinopril 0 Yes 5mg Take 1 Kelse y 5 MG oral 6-13 tablet (5 Seybo ld Tablet 14:00: mg total) - 59 by mouth Externa daily l Ezetimibe 0 Yes [id number] 10mg Take 1 K elsey 10 MG oral 6-13 tablet (10 Sey bold Tablet 00:00: mg total) - 00 by mouth Externa daily l Dapaglifloz 2022-0 Yes [id number] 1{tbl} Take 1 Andreea in -13 3 tablet by Seybold Propanediol 00:00: mouth - (Farxiga) 00 daily Externa 10 MG oral l Tablet Insulin 2022-0 Yes [id number] Inject 12 Andreea Aspart 6-13 3 units Plus Seybold (NovoLOG 00:00: sliding - FlexPen) 00 scale 2 Externa 100 UNIT/ML unit for l subcutaneou every 50 s Solution above 150 Pen-injecto (maximum r 70 units per day) Ezetimibe Yes [id number] 10mg Take 1 K elsey 10 MG oral -13 tablet (10 Sey bold Tablet 00:00: mg total) - 00 by mouth Externa daily l Dapaglifloz 0 Yes [id number] 1{tbl} Take 1 Andreea in 12-21 3 tablet by Seybold Propanediol 00:00: mouth - (Farxiga) 00 daily Externa 10 MG oral l Tablet Insulin Yes [id number] Inject 12 Andreea Aspart 12-21 3 units Plus Seybold (NovoLOG 00:00: sliding - FlexPen) 00 scale 2 Externa 100 UNIT/ML unit for l subcutaneou every 50 s Solution above 150 Pen-injecto (maximum r 70 units per day) Amitriptyli 2022- No 50mg Take 1 Spencer sey ne HCl 50 12-17 tablet (50 Sey bold MG oral 15:15: 00:00 mg total) - Tablet 31 :00 by mouth Externa nightly l Aripiprazol 2022- No Take by Ke lsey e 10 MG 12-17 mouth Seybold oral Tablet 15:15: 00:00 - 25 :00 Externa l busPIRone 2022- No 15mg Take 1 Kelse y HCl 15 MG 12-17 tablet (15 Sey bold oral Tablet 15:14: 00:00 mg total) - 39 :00 by mouth 2 Externa times l daily Oxybutynin 2022- No 10mg Take 1 Mildred ey Chloride 10 12-17 tablet (10 S eybold MG oral 15:12: 00:00 mg total) - TABLET SR 56 :00 by mouth Copy Editor a 24 HR daily l Pantoprazol 2022- No 40mg Take 1 Spencer sey e Sodium 40 12-17 tablet (40 S eybold MG oral 15:12: 00:00 mg total) - Tablet 49 :00 by mouth Externa Delayed daily l Response Sucralfate 2022- No 1g Take 1 Mildred ey 1 g oral 6-09 06-09 tablet (1 Seybo ld Tablet 15:12: 00:00 g total) - 11 :00 by mouth 4 Externa times l daily Dapaglifloz 2022-0 Yes 1{tbl} 1 tablet Andreea in 6-09 daily Seybold Propanediol 14:57: - () 18 Externa 10 MG oral l Tablet Lisinopril 0 Yes 5mg Take 1 Kelse y 5 MG oral 6-09 tablet (5 Seybo ld Tablet 14:57: mg total) - 18 by mouth Externa daily l [place]-3 2022-0 Yes [id number] 1999{ca Take 2,000 Andreea 1000 MG 6-09 psule} capsules Seybol d oral 00:00: by mouth 2 - Capsule 00 times Externa daily l Trazodone 2022-0 Yes [id number] 50mg Take 1 [place] sey HCl 50 MG 6-09 tablet (50 Seyb old oral Tablet 00:00: mg total) - 00 by mouth Externa nightly l Fluoxetine 2022-0 Yes [id number] 20mg Take 1 Andreea HCl 20 MG 6-09 capsule Seybold oral 00:00: (20 mg - Capsule 00 total) by Externa mouth l daily busPIRone 2022-0 Yes [id number] 10mg Take 1 K elsey HCl 10 MG 6-09 tablet (10 Seyb old oral Tablet 00:00: mg total) - 00 by mouth 2 Externa times l daily Trazodone 2022-0 Yes [id number] 50mg Take 1 [place] sey HCl 50 MG 6-09 tablet (50 Seyb old oral Tablet 00:00: mg total) - 00 by mouth Externa nightly l Fluoxetine 2022-0 Yes [id number] 20mg Take 1 Andreea HCl 20 MG 6-09 capsule Seybold oral 00:00: (20 mg - Capsule 00 total) by Externa mouth l daily busPIRone 2022-0 Yes [id number] 10mg Take 1 K elsey HCl 10 MG 6-09 tablet (10 Seyb old oral Tablet 00:00: mg total) - 00 by mouth 2 Externa times l daily Icosapent 2022-0 Yes [id number] 2{capsu Take 2 Andreea Ethyl 1 g 6-09 le} capsules Seybol d oral 00:00: by mouth 2 - Capsule 00 times Externa daily l Fluoxetine 2022-0 Yes [id number] 20mg Take 1 Andreea HCl 20 MG 6-09 capsule Seybold oral 00:00: (20 mg - Capsule 00 total) by Externa mouth l daily busPIRone 2022-0 Yes [id number] 10mg Take 1 K elsey HCl 10 MG 6-09 tablet (10 Seyb old oral Tablet 00:00: mg total) - 00 by mouth 2 Externa times l daily Icosapent 2022-0 Yes [id number] 2{capsu Take 2 Andreea Ethyl 1 g 6- le} capsules Seybol d oral 00:00: by mouth 2 - Capsule 00 times Externa daily l Trazodone 2022-0 2022- No [id number] 50mg Take 1 Ke lsey HCl 50 MG 6-03 16- tablet (50 Sey bold oral Tablet 00:00: 00:00 mg total) - 00 :00 by mouth Externa nightly l Meloxicam 2022-0 Yes [id number] TAKE 1 Andreea 15 MG oral 5-25 9107 TABLET BY Seyb old Tablet 00:00: MOUTH - 00 EVERY DAY Externa NEEDED l FOR PAIN Meloxicam 2022-0 Yes [id number] TAKE 1 Andreea 15 MG oral 5-25 9107 TABLET BY Seyb old Tablet 00:00: MOUTH - 00 EVERY DAY Externa NEEDED l FOR PAIN Meloxicam 2022-0 Yes [id number] TAKE 1 Andreea 15 MG oral 5-25 [...] 2022- No Andreea HCl 50 MG -01 01- Seybold oral Tablet 00:00: 00:00 - 00 :00 Externa l Promethazin 2022-0 Yes [id number] TAKE 1 TAB Andreea e HCl 5-21 (25 MG) BY Seybold (PHENERGAN) 00:00: MOUTH - 25 MG oral 00 EVERY 6 Copy Editor a Tablet HOURS l NEEDED FOR NAUSEA / VOMITING Promethazin 2022-0 Yes [id number] TAKE 1 TAB Andreea e HCl 5-21 (25 MG) BY Seybold (PHENERGAN) 00:00: MOUTH - 25 MG oral 00 EVERY 6 Copy Editor a Tablet HOURS l NEEDED FOR NAUSEA / VOMITING Promethazin 2022- Yes [id number] TAKE 1 TAB Andreea e HCl 5-21 (25 MG) BY Seybold (PHENERGAN) 00:00: MOUTH - 25 MG oral 00 EVERY 6 Copy Editor a Tablet HOURS l NEEDED FOR NAUSEA [...] Externa mouth 3 l times daily Ezetimibe 2022-2022- No TAKE 1 Kelse y 10 MG oral 11-14 TABLET (10 Se ybold Tablet 00:00: 00:00 MG) BY - 00 :00 MOUTH Externa DAILY. l Icosapent 2022-2022- No TAKE 2 Kelse y Ethyl 1 g 11-14 CAPSULES Seybo ld oral 00:00: 00:00 BY MOUTH - Capsule 00 :00 TWICE A Externa DAY WITH l MEALS Metformin 2022-2022- No 1000mg Take 2 Spencer sey HCl ER 500 11-14 tablets Seybo ld MG oral 00:00: 00:00 (1,000 mg - TABLET SR 00 :00 total) by Exter na 24 HR mouth in l the morning and 2 tablets (1,000 mg total) in the evening. Take with meals. dicyclomine No 20mg 20 mg, Uni vers (BENTYL) [...] dose, On Tue11/03/22 at 1030, STAT famotidine No 20mg 20 mg, Univ ers (PEPCID 11-03 Slow IV ity of (PF)) 14:45: 14:51 Push, [place] injection 00 :00 ONCE, 1 Medical 20 mg dose, On Branch 11/03/22 at 0945, MALAIKA maalox:diph No 15mL 15 mL, Uni vers enhydrAMINE 11-03 Oral, ity of :lidocaine 14:45: 14:51 ONCE, 1 [place] as 2 % viscous 00 :00 dose, On Medi bonita 1:1:1 Wed Branch ([facility] 11/03/22 at [facility]) 0945, oral Routine suspension 15 mL ketorolac No 30mg 30 mg, Unive rs [...] Wed Branch 11/03/22 at 0930, MALAIKA dicyclomine Yes [id number] 20mg Take 1 [facility] 20 mg 4-26 tablet by ity of tablet 00:00: mouth 4 [place] 00 (four) Medical times Branch daily as needed for Abdominal pain. ondansetron Yes [id number] 4mg Take 1 [facility] 4 mg 4-26 tablet by ity of disintegrat 00:00: mouth [place] ing tablet 00 every 12 Medic al (twelve) Branch hours as needed for Nausea and Vomiting (N/V). dicyclomine 2022- No [id number] 20mg Take 1 [facility] 20 mg 4-26 07-03 tablet by ity of tablet 00:00: 00:00 mouth 4 [place] 00 :00 (four) Medical times Branch daily as needed for Abdominal pain. ondansetron 2022- No [id number] 4mg Take 1 [facility] 4 mg 4-26 - tablet by ity of disintegrat 00:00: 00:00 mouth [place] tablet 00 :00 every 12 Medic al (twelve) Branch hours as needed for Nausea and Vomiting (N/V). Dicyclomine 2022- No 20mg Q.25D Take 1 [place] HCl 20 MG 4-26 06-09 tablet (20 Sey bold oral Tablet 00:00: 00:00 mg total) - 00 :00 by mouth 4 Externa times l daily as needed Ondansetron 2022- No TAKE 1 [place] sey (ZOFRAN) 4 4-26 06-09 TABLET BY Sey bold MG oral 00:00: 00:00 MOUTH - TABLET 00 :00 EVERY 12 Externa DISPERSIBLE HOURS l NEEDED FOR NAUSEA AND VOMITING Atorvastati Yes [id number] 80mg Take 1 Andreea n Calcium 4-18 tablet (80 Seyb old 80 MG oral 00:00: mg total) - Tablet 00 by mouth Externa daily l Insulin Yes [id number] 10U Inject 10 [place]reea Aspart 4-18 3 units into Seybold (NovoLOG 00:00: the skin 3 - FlexPen) 00 times Externa 100 UNIT/ML daily l subcutaneou (before s Solution meals) Pen-injecto Plus r sliding scale 1 unit for every 50 above 150 (maximum 50 units per day) Insulin Yes [id number] 100U Inject 100 [place]reea Glargine 4-18 3 units into Seybo ld (Basaglar 00:00: the skin - KwikPen) 00 at bedtime Exter na 100 UNIT/ML l subcutaneou s Solution Pen-injecto r Metformin 0 Yes [id number] 1000mg Take 1 Andreea HCl 1000 MG 4-18 3 tablet Seybol d oral Tablet 00:00: (1,000 mg - 00 total) by Externa mouth in l the morning and 1 tablet (1,000 mg total) in the evening. Take with meals. Atorvastati Yes [id number] 80mg Take 1 Andreea n Calcium 4-18 tablet (80 Seyb old 80 MG oral 00:00: mg total) - Tablet 00 by mouth Externa daily l Insulin Yes [id number] 100U Inject 100 [place]reea Glargine 4-18 3 units into Seybo ld (Basaglar 00:00: the skin - KwikPen) 00 at bedtime Exter na 100 UNIT/ML l subcutaneou s Solution Pen-injecto r Metformin 0 Yes [id number] 1000mg Take 1 Andreea HCl 1000 MG 4-18 3 tablet Seybol d oral Tablet 00:00: (1,000 mg - 00 total) by Externa mouth in l the morning and 1 tablet (1,000 mg total) in the evening. Take with meals. Atorvastati Yes [id number] 80mg Take 1 Andreea n Calcium 4-18 tablet (80 Seyb old 80 MG oral 00:00: mg total) - Tablet 00 by mouth Externa daily l Insulin Yes [id number] 100U Inject 100 [place]a Glargine 4-18 3 units into Seybo ld (Basaglar 00:00: the skin - KwikPen) 00 at bedtime Exter na 100 UNIT/ML l subcutaneou s Solution Pen-injecto r Metformin 0 Yes [id number] 1000mg Take 1 Andreea HCl 1000 MG 4-18 3 tablet Seybol d oral Tablet 00:00: (1,000 mg - 00 total) by Externa mouth in l the morning and 1 tablet (1,000 mg total) in the evening. Take with meals. Insulin 0 2022- No [id number] 10U Inject 10 Andreea Aspart 4-18 06-13 3 units into Seybol d (NovoLOG 00:00: 00:00 the skin 3 - FlexPen) 00 :00 times Externa 100 UNIT/ML daily l subcutaneou (before s Solution meals) Pen-injecto Plus r sliding scale 1 unit for every 50 above 150 (maximum 50 units per day) Metformin 2022-0 Yes 1000mg Take 1,000 Andreea [...] - 28 Externa l Meloxicam 2022-0 Yes [id number] 15mg QD Take 1 Andreea 15 MG oral 24 9107 tablet (15 Sey bold Tablet 00:00: mg total) - 00 by mouth Externa daily as l needed for pain Ezetimibe 2022-0 2022- No 10mg Take 10 mg K elsey 10 MG oral -03 03-03 by mouth Seyb old Tablet 10:42: [...] Tablet 34 Externa Delayed l Response busPIRone 0 Yes [...] SR 34 Externa 24 HR l Sucralfate 2022-0 Yes 1g Take 1 g Spencer sey 1 g oral 3-03 by mouth 4 Seybo ld Tablet 10:09: times - 34 daily Externa l Lisinopril 2023-0 Yes 5mg Take 5 mg Ke lsey 5 MG oral 3-03 by mouth Seybol d Tablet 10:09: daily - 34 Externa l Continuous Yes [id number] Use as Andreea Blood Gluc 3-03 3 directed Seybo ld Transmit 00:00: for - (Dexcom G6 00 continuous Ext john Transmitter glucose l ) does not monitoring apply Misc with Dexcom system Continuous Yes [id number] Use as Andreea Blood Gluc 3-03 3 directed Seybo ld 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 Holder 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 00:00: for - (Dexcom G6 00 continuous Ext john Brush Holder Assembler) glucose l does not monitoring apply Device Continuous Yes [id number] Use as Andreea Blood Gluc 3-03 3 directed Seybo ld Sensor 00:00: for - (Dexcom G6 00 continuous Ext john Sensor) glucose l does not monitoring apply Misc with Dexcom system Ostomy Yes [id number] Use as Ke lsey Supplies 3-03 3 directed Seybold (Skin Tac 00:00: for - Adhesive 00 continuous Exter na Barrier glucose l Wipe) does monitoring not apply with Misc Dexcom system Fenofibrate Yes [id number] 160mg Take 1 Andreea 160 MG oral 3-03 tablet Seybol d Tablet 00:00: (160 mg - 00 total) by Externa mouth l daily Insulin Yes [id number] 10U Inject 10 Andreea Aspart 3-03 3 units into Seybold (NovoLOG 00:00: the skin 3 - FlexPen) 00 times Externa 100 UNIT/ML daily l subcutaneou (before s Solution meals) Pen-injecto Plus r sliding scale 1 unit for every 50 above 150 (maximum 50 units per day) Continuous Yes [id number] Use as Andreea Blood Gluc 3-03 3 directed Seybo ld Transmit 00:00: for - (Dexcom G6 00 continuous Ext john Transmitter glucose l ) does not monitoring apply Misc with Dexcom system Continuous Yes [id number] Use as Andreea Blood Gluc 3-03 3 directed Seybo ld Brush Holder Assembler 00:00: for - (Dexcom G6 00 continuous Ext john Brush Holder Assembler) glucose l does not monitoring apply Device Continuous Yes [id number] Use as Andreea Blood Gluc 3-03 3 directed Seybo ld Sensor 00:00: for - (Dexcom G6 00 continuous Ext john Sensor) glucose l does not monitoring apply Misc with Dexcom system Ostomy Yes [id number] Use as Ke lsey Supplies 3-03 3 directed Seybold (Skin Tac 00:00: for - Adhesive 00 continuous Exter na Barrier glucose l Wipe) does monitoring not apply with Misc Dexcom system Fenofibrate Yes [id number] 160mg Take 1 Andreea 160 MG oral 3-03 tablet Seybol d Tablet 00:00: (160 mg - 00 total) by Externa mouth l daily Continuous Yes [id number] Use as Andreea Blood Gluc 3-03 3 directed Seybo ld Transmit 00:00: for - (Dexcom G6 00 continuous Ext john Transmitter glucose l ) does not monitoring apply Misc with Dexcom system Continuous Yes [id number] Use as Andreae Blood Gluc 3-03 3 directed Seybo ld Brush Holder Assembler 00:00: for - (Dexcom G6 00 continuous Ext john Brush Holder Assembler) glucose l does not monitoring apply Device Continuous Yes [id number] Use as Andreea Blood Gluc 3-03 3 directed Seybo ld Sensor 00:00: for - (Dexcom G6 00 continuous Ext john Sensor) glucose l does not monitoring apply Misc with Dexcom system Ostomy Yes [id number] Use as Ke lsey Supplies 3-03 3 directed Seybold (Skin Tac 00:00: for - Adhesive 00 continuous Exter na Barrier glucose l Wipe) does monitoring not apply with Misc Dexcom system Fenofibrate Yes [id number] 160mg Take 1 Andreea 160 MG oral 3-03 tablet Seybol d Tablet 00:00: (160 mg - 00 total) by Externa mouth l daily Continuous Yes [id number] Use as Andreea Blood Gluc 3-03 3 directed Seybo ld Transmit 00:00: for - (Dexcom G6 00 continuous Ext john Transmitter glucose l ) does not monitoring apply Misc with Dexcom system Continuous Yes [id number] Use as Andreea Blood Gluc 3-03 3 directed Seybo ld 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 Holder Assembler 00:00: for - (Dexcom G6 00 continuous Ext john Brush Holder Assembler) glucose l does not monitoring apply Device Continuous 0 Yes [id number] Use as Andreea Blood Gluc 3-03 3 directed Seybo ld Sensor 00:00: for - (Dexcom G6 00 continuous Ext john Sensor) glucose l does not monitoring apply Misc with Dexcom system Ostomy Yes [id number] Use as Ke lsey Supplies 3-03 3 directed Seybold (Skin Tac 00:00: for - Adhesive 00 continuous Exter na Barrier glucose l Wipe) does monitoring not apply with Misc Dexcom system Fenofibrate Yes [id number] 160mg Take 1 Andreea 160 MG oral 3-03 tablet Seybol d Tablet 00:00: (160 mg - 00 total) by Externa mouth l daily Continuous Yes [id number] Use as Andreea Blood Gluc 3-03 3 directed Seybo ld Transmit 00:00: for - (Dexcom G6 00 continuous Ext john Transmitter glucose l ) does not monitoring apply Misc with Dexcom system Continuous Yes [id number] Use as Andreea Blood Gluc 3-03 3 directed Seybo ld Brush Holder Assembler 00:00: for - (Dexcom G6 00 continuous Ext john Brush Holder Assembler) glucose l does not monitoring apply Device Continuous Yes [id number] Use as Andreea Blood Gluc 3-03 3 directed Seybo ld Sensor 00:00: for - (Dexcom G6 00 continuous Ext john Sensor) glucose l does not monitoring apply Misc with Dexcom system Ostomy Yes [id number] Use as Ke lsey Supplies 3-03 3 directed Seybold (Skin Tac 00:00: for - Adhesive 00 continuous Exter na Barrier glucose l Wipe) does monitoring not apply with Misc Dexcom system Fenofibrate Yes [id number] 160mg Take 1 Andreea 160 MG oral 3-03 tablet Seybol d Tablet 00:00: (160 mg - 00 total) by Externa mouth l daily Insulin Yes [id number] 10U Inject 10 Andreea Aspart 3-03 3 units into Seybold (NovoLOG 00:00: the skin 3 - FlexPen) 00 times Externa 100 UNIT/ML daily l subcutaneou (before s Solution meals) Pen-injecto Plus r sliding scale 1 unit for every 50 above 150 (maximum 50 units per day) Insulin Yes [id number] 100U Inject 100 Andreea Glargine 3-01 3 units into Seybo ld (Basaglar 00:00: the skin - KwikPen) 00 at bedtime Exter na 100 UNIT/ML l subcutaneou s Solution Pen-injecto r [place]-3 0 Yes [id number] 1000{ca Take 1,000 Andreea 1000 MG 3-01 psule} capsules Seybol d oral 00:00: by mouth 3 - Capsule 00 times Externa daily l Insulin 0 Yes [id number] 100U Inject 100 Andreea Glargine 3-01 3 units into Seybo ld (Basaglar 00:00: the skin - KwikPen) 00 at bedtime Exter na 100 UNIT/ML l subcutaneou s Solution Pen-injecto r [place]-3 Yes [id number] 1000{ca Take 1,000 Andreea 1000 MG 3-01 psule} capsules Seybol d oral 00:00: by mouth 3 - Capsule 00 times Externa daily l [place]-3 0 2022- No [id number] 1000{ca Take 1,000 Andreea 1000 MG 3-01 06-09 psule} capsules Seybo ld oral 00:00: 00:00 by mouth 3 - Capsule 00 :00 times Externa daily l Insulin 0 2022- No [id number] 10U Inject 10 Andreea Aspart 3-01 03-03 3 units into Seybol d (NovoLOG 00:00: 00:00 the skin 3 - FlexPen) 00 :00 times Externa 100 UNIT/ML daily l subcutaneou (before s Solution meals) Pen-injecto r [place]-3 2022- No Take by Andreea 1000 MG 09-07 mouth Seybold oral 15:18: 00:00 - Capsule 41 :00 Externa l Insulin 0 2022- No Inject Andreea Aspart 09-07 into the Seybold (NovoLOG 15:18: 00:00 skin - FlexPen) 41 :00 Externa 100 UNIT/ML l subcutaneou s Solution Pen-injecto r Insulin 0 2022- No Inject Andreea Glargine 2-28 02-28 into the Seybol d (Basaglar 15:18: 00:00 skin at - KwikPen) 41 :00 bedtime Externa 100 UNIT/ML l subcutaneou s Solution Pen-injecto r Amitriptyli 2022- No 10mg Take 10 mg Andreea ne HCl 10 09-07 by mouth Seybo ld MG oral 15:10: 00:00 at bedtime - Tablet 02 :00 Externa l MethIMAzole 0 2022- No 10mg Take 10 mg Andreea 10 MG oral 09-07 by mouth Seyb old Tab 15:01: 00:00 daily - 44 :00 Externa l Metformin 0 Yes 1000mg Take 1,000 Andreea HCl 1000 MG - mg by Seybold oral Tab 14:59: mouth 2 - 38 times Externa daily l (with meals) Amitriptyli Yes 50mg Take 50 mg Andreea ne HCl 50 09-07 by mouth Seybol d MG oral 14:59: nightly - Tablet 38 Externa l Pantoprazol Yes 40mg Take 40 mg Andreea e Sodium 40 28 by mouth Seyb old MG oral 14:59: daily - Tablet 38 Externa Delayed l Response busPIRone Yes 15mg Take 15 mg Ke lsey HCl 15 MG 28 by mouth 2 Seyb old oral Tablet 14:59: times - 38 daily Externa l Atorvastati 0 Yes 80mg Take 80 mg Andreea n Calcium 28 by mouth Seybol d 80 MG oral 14:59: daily - Tablet 38 Externa l Aripiprazol Yes Take by Spencer sey e 10 MG -28 mouth Seybold oral Tablet 14:59: - 38 Externa l Dapaglifloz Yes 1{tbl} 1 tablet Andreea in - daily Seybold Propanediol 14:59: - (Farxiga) 38 [...] Tablet 14:59: daily - 38 Externa l [place]-3 Yes [id number] 1000{ca Take 1,000 Andreea 1000 MG 2-28 psule} capsules Seybol d oral 00:00: by mouth 3 - Capsule 00 times Externa daily l Insulin Yes [id number] 10U Inject 10 Andreea Aspart 2-28 3 units into Seybold (NovoLOG 00:00: the skin 3 - FlexPen) 00 times Externa 100 UNIT/ML daily l subcutaneou (before s Solution meals) Pen-injecto r Insulin Yes [id number] 100U Inject 100 Andreea Glargine 2-28 3 units into Seybo ld (Basaglar 00:00: the skin - KwikPen) 00 at bedtime Exter na 100 UNIT/ML l subcutaneou s Solution Pen-injecto r Insulin 2022- No [id number] 100U Inject 100 Andreea Glargine 2-28 02-28 3 units into Seyb old (Basaglar 00:00: 00:00 the skin - KwikPen) 00 :00 at bedtime Exter na 100 UNIT/ML l subcutaneou s Solution Pen-injecto r KCL 0 2022- No 40meq 40 mEq, Univers (KLOR-CON [...] Medical mEq CONTINUOUS Branch , Starting on Tue08/29/22 at 2100, Until Tue08/30/22 at 0825, Routine insulin Yes [id number] 72U inject 72 Univers degludec 2-20 Units ity of (TRESIBA 00:00: [place] FLEXTOUCH 00 skin 2 Medical U-100) 100 (two) Branch unit/mL (3 times mL) InPn daily. insulin Yes [id number] 72U inject 72 Univers degludec 2-20 Units ity of (TRESIBA 00:00: [place] FLEXTOUCH 00 skin 2 Medical U-100) 100 (two) Branch unit/mL (3 times mL) InPn daily. insulin Yes [id number] 72U inject 72 Univers degludec 2-20 Units ity of (TRESIBA 00:00: [place] FLEXTOUCH 00 skin 2 Medical U-100) 100 (two) Branch unit/mL (3 times mL) InPn daily. insulin 2022- No [id number] 72U inject 72 Univers degludec 2-20 07-03 Units ity of (TRESIBA 00:00: 00:00 under the [place] as FLEXTOUCH 00 :00 skin 2 Medical U-100) 100 (two) Branch unit/mL (3 times mL) InPn daily. atorvastati 2022- No [id number] 80mg Take 1 Univers n 80 mg 2-09-30 tablet by ity of tablet 00:00: 04:59 mouth at [place] 00 :00 bedtime Medical for 30 Branch days. SILVANAA, 2022- No [id number] 1g Take 1 Un fabiana omega-3-aci 08-30 capsule by i ty of d ethyl 00:00: 04:59 mouth in [place] esters, 1 00 :00 the Medical gram morning Branch capsule and 1 capsule in the evening. Do all this for 30 days. atorvastati 2022- No [id number] 80mg Take 1 Univers n 80 mg 08-30 tablet by ity of tablet 00:00: 04:59 mouth at [place] 00 :00 bedtime Medical for 30 Branch days. LOVAZA, 2022- No [id number] 1g Take 1 Un fabiana omega-3-aci 08-30 capsule by i ty of d ethyl 00:00: 04:59 mouth in [place] esters, 1 00 :00 the Medical gram [...] -18 Oral, ity of (TYLENOL) 18:48: Q6HPRN, [place] tablet 650 59 Starting Medic al mg [...] No 1000mL at 100 Uni vers NaCl 2-18 02-19 mL/hr, ity of (1/2NS) IV 14:30: 21:45 1,000 mL, [place] infusion 00 :17 IV Medical 1,000 mL Infusion, Branch CONTINUOUS , Starting on 08/28/22 at 0830, Until 08/29/22 at 1545, Routine morpHINE (2 0 Yes 2mg 2 mg, Slow Univers mg/mL) 08-27 IV Push, ity of injection 2 20:13: Q4HPRN, [place] as mg 31 Starting Medical on Tue Branch 08/27/22 at 1413, Until Discontinu ed, Routine, Pain (scale 7-10) enoxaparin 2022-0 Yes 40mg 40 mg, Unive rs (LOVENOX) 17 Subcutaneo ity of injection 15:00: us, DAILY, [place] 40 mg 00 First dose Medical on Tue Branch 08/27/22 at 0900, Until Discontinu ed, Routine lisinopriL 0 Yes 2.5mg 2.5 mg, Uni vers (PRINIVIL,Z -17 Oral, ity of ESTRIL) 15:00: DAILY, [place] tablet 2.5 00 First dose Med ical mg on Tue Branch 08/27/22 at 0900, Until Discontinu ed, Routine fenofibrate 0 Yes 134mg 134 mg, Un fabiana micronized -17 Oral, ity of (LOFIBRA) 15:00: DAILY, [place] capsule 134 00 First dose Me dical mg on Tue Branch 08/27/22 at 0900, Until Discontinu ed, Routine gabapentin 2022-0 Yes 600mg 600 mg, Uni vers (NEURONTIN) -17 Oral, BID, it y of tablet 600 02:00: First dose [place] mg 00 on R[facility]ael Medical 08/26/22 at Branch 2000, Until Discontinu ed, Routine insulin 2022-0 2023- No .1U/kg/ 0.1 Univer s regular in 08-27 02-20 h Units/kg/h it y of 0.9 % NaCl 02:00: 14:25 r ?108.8 [place] (MYXREDLIN) 00 :34 kg (10.88 Med ical 100 mL/hr), IV Branch unit/100 mL Infusion, (1 unit/mL) CONTINUOUS RTU IV , Starting infusion on Rachael 08/26/[address] insulin infusion [...] On Rachael 08/26/22 at 1930, [place] ondansetron 0 Yes 4mg 4 mg, Slow Univers (ZOFRAN [...] 0 Yes 1mg 1 mg, Univers (GLUCAGEN 08-27 Intramuscu ity of DIAGNOSTIC 00:45: lar, PRN, [place] KIT) 16 Starting Medical injection 1 on [facility]ael Branch mg 08/26/22 at 1845, Until Discontinu ed, MALAIKA, Blood Glucose < or = 70 mg/dL and patient is NPO, unable to swallow or has mental changes. dextrose 50 2022-0 Yes 25mL 25 mL, Univ ers % in water 08-27 Slow IV ity of (D50W) 00:45: Push, PRN, [place] injection 16 Starting Medica l 25 mL on Rachael Branch 08/26/22 at 1845, Until Discontinu ed, MALAIKA, Blood Glucose < or = 70 mg/dL and patient is NPO, unable to swallow or has mental status changes. NaCl 0.9% 2022-0 202- No 1000mL at 200 Uni vers (NS) IV 2-17 02-19 mL/hr, IV ity of infusion 00:00: 21:45 Infusion, [place] 1,000 mL 00 :17 CONTINUOUS Medic al , Starting Branch on [facility] 08/26/22 at 1800, Until [place] 08/29/22 at 1545, Routine LOVAZA Yes 2{capsu 2 g (2 Univer s (omega-3-ac -16 le} capsule), ity of id ethyl 23:00: Oral, BID, [place] esters) 00 First dose Medica l capsule 2 g on [facility] 08/26/22 at 1700, Until Discontinu ed, Routine atorvastati Yes 80mg 80 mg, Univ ers n (LIPITOR) 2-16 Oral, QHS, it y of tablet 80 23:00: First dose [place] mg 00 on [facility] 08/26/22 at Branch 1700, Until Discontinu ed, Routine insulin 2022- No 8U 8 Units, Unive rs regular 08-26 Slow IV ity of human 23:00: 23:06 Push, [place] (HUMULIN R) 00 :00 ONCE, 1 Medic al injection 8 dose, On Bran ch Units [facility] 08/26/22 at 1700, STAT
In dication for insulin: Hyperglyce shea NaCl 0.9% 2022- No 2000mL at 999 Uni vers (NS) bolus 08-26 mL/hr, ity of infusion 21:45: 23:52 2,000 mL, [place] 2,000 mL 00 :00 IV Medical Piggyback, Branch ONCE, 1 dose, On [facility] 08/26/22 at 1545, STAT insulin 2022- No 10U 10 Units, Univ ers regular 08-26 Slow IV ity of human 21:00: 21:11 Push, [place] (HUMULIN R) 00 :00 ONCE, 1 Medic al injection dose, On Branch 10 Units [facility] 08/26/22 at 1500, STAT
In dication for insulin: Hyperglyce shea Lactobacill 2022- No Take by Un fabiana 08-26 mouth. ity of acidophilus 18:46: 00:00 [place] (PROBIOTIC 18 :00 Medical ORAL) Branch MULTIVITAMI 2022- No Take by Un fabiana N ORAL 2-16 02-16 mouth. ity of 18:46: 00:00 [place] 18 :00 Medical Branch multivitami 0 2022- No Take by Un fabiana n with 2-16 02-16 mouth. ity of minerals 18:46: 00:00 [place] (HAIR,SKIN 18 :00 Medical AND NAILS Branch ORAL) TAKE 1 2021- No TABLET 2-14 DAILY. [...] MOUTH EVERY 00:00: DAY 00 TAKE 1 2021-1 No TABLET BY 2-14 MOUTH THREE 00:00: [...] 0.45% 2021-07 Yes 1000mL Unive rs (1/2NS) -13 ity of 1000 mL + 02:00: [place] KCL 20 mEq 00 Medical Branch D5W 0.45% 2021-07 Yes 1000mL at 200 Univ ers NaCl 2-13 mL/hr, ity of (1/2NS) IV 01:48: 1,000 mL, [place] infusion 28 IV Medical 1,000 mL Infusion, Branch PRN - SEE INSTRUCTIO NS, Starting on 06/21/22 at 1948, Until Discontinu ed, [place] ondansetron 2021-07- No 4mg 4 mg, Slow Univers (ZOFRAN 08-23 IV Push, ity of (PF)) 01:00: 01:01 ONCE, 1 [place] injection 4 00 :00 dose, On Medi bonita mg Mon Branch 06/21/22 at 1900, [place] NaCl 0.9% 2021-07- No 1000mL at 999 Uni vers (NS) bolus 2-13 12-13 mL/hr, ity of infusion 00:45: 01:56 1,000 mL, [place] 1,000 mL 00 :00 IV Medical Infusion, Branch ONCE, 1 dose, On Tue06/21/22 at 1845, STAT TAKE 1 2021- No TABLET 0-21 TWICE A DAY 00:00: [...] capsule 00:00: 00 Dose 2022-0 No Unknown - 00:00: 00 Dose 2022-0 No Unknown - 00:00: 00 Dose 2022-0 No Unknown -18 00:00: 00 atorvastati 2022-0 No 1mg n [...] 2022-0 No Unknown 5-14 00:00: 00 Victoza 2-0 [...] mL 00:00: mL) (18 mg/3 00 mL) [facility] Tresiba 2-0 No (3 [...] tablet 00:00: 00 Dose 2021-0 No Unknown 4-15 00:00: 00 Dose 2021-0 No Unknown 4-15 00:00: 00 Dose 2021-0 No Unknown 4-15 00:00: 00 Dose 2021-0 No Unknown 4-15 00:00: 00 Dose 2021-0 No Unknown 4-13 [...] No Unknown 4-13 00:00: 00 NaCl 0.9% No 1000mL at 999 Uni vers (NS) IV 10-17 mL/hr, ity of infusion 02:00: 02:08 Intravenou [place] 1,000 mL 00 :00 s, ONCE, 1 Medic al dose, On Branch Tue10/16/21 at 2100, [place] insulin 2021- No .1U/kg 10.3 Units U nivers regular 10-17 (rounded ity of human 02:00: 01:14 from 10.34 [place] (HUMULIN R) 00 :00 Units = Medic [...] s mg 00 :00 dose, On Medical 10/16/21 Branch at 2100, Routine NaCl 0.9% No [...] dose, On Branch Tue10/16/21 at 1815, Routine
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 ondansetron 2021-0 Yes [id number] 4mg Take 1 Univers 4 mg 4-08 tablet by ity of disintegrat 00:00: mouth [place] ing tablet 00 every 8 Medica l (eight) Branch hours as needed for Nausea and Vomiting (N/V). oxybutynin 2021-0 Yes [id number] 5mg Take 1 Univers chloride 5 4-08 tablet by ity of mg tablet 00:00: mouth 3 [place] 00 (three) Medical times Branch daily as needed for Bladder spasms. ondansetron 2021-0 Yes [id number] 4mg Take 1 Univers 4 mg 4-08 tablet by ity of disintegrat 00:00: mouth [place] ing tablet 00 every 8 Medica l (eight) Branch hours as needed for Nausea and Vomiting (N/V). oxybutynin 2021-0 Yes [id number] 5mg Take 1 Univers chloride 5 4-08 tablet by ity of mg tablet 00:00: mouth 3 [place] 00 (three) Medical times Branch daily as needed for Bladder spasms. ondansetron 2021-0 Yes [id number] 4mg Take 1 Univers 4 mg 4-08 tablet by ity of disintegrat 00:00: mouth [place] ing tablet 00 every 8 Medica l (eight) Branch hours as needed for Nausea and Vomiting (N/V). oxybutynin 2021-0 Yes [id number] 5mg Take 1 Univers chloride 5 4-08 tablet by ity of mg tablet 00:00: mouth 3 [place] 00 (three) Medical times Branch daily as needed for Bladder spasms. ondansetron 2021-0 Yes [id number] 4mg Take 1 Univers 4 mg 4-08 tablet by ity of disintegrat 00:00: mouth [place] ing tablet 00 every 8 Medica l (eight) Branch hours as needed for Nausea and Vomiting (N/V). oxybutynin 2021-0 Yes [id number] 5mg Take 1 Univers chloride 5 4-08 tablet by ity of mg tablet 00:00: mouth 3 [place] 00 (three) Medical times Branch daily as needed for Bladder spasms. ondansetron 2021-0 Yes [id number] 4mg Take 1 Univers 4 mg 4-08 tablet by ity of disintegrat 00:00: mouth [place] ing tablet 00 every 8 Medica l (eight) Branch hours as needed for Nausea and Vomiting (N/V). oxybutynin 2021-0 2022- No [id number] 5mg Take 1 Univers chloride 5 4-08 07-03 tablet by ity of mg tablet 00:00: 00:00 mouth 3 [place] 00 :00 (three) Medical times Branch daily as needed for Bladder spasms. ondansetron 2021-0 2022- No [id number] 4mg Take 1 Univers 4 mg 4-08 07-03 tablet by ity of disintegrat 00:00: 00:00 mouth [place] ing tablet 00 :00 every 8 Medica l (eight) Branch hours as needed for Nausea and Vomiting (N/V). traMADoL 50 2021-0 2021- No [id number] 50mg Take 1 Uni vers mg tablet 10-16 04-16 tablet by ity of 00:00: 04:59 [...] 3-31 00:00: 00 Dose 2022-0 No Unknown 3- [...] 150 mg 3- tablet 00:00: 00 ciprofloxac 2022-0 No 1mg in 500 mg 3- tablet 00:00: 00 Dose 2022-0 No Unknown [...] Dose 2-0 No Unknown 3- 00:00: 00 Diflucan 2-0 No 1mg 150 mg 3- tablet 00:00: 00 ciprofloxac 2-0 No 1mg in 500 mg 3- tablet 00:00: 00 Dose 2022-0 No Unknown [...] Dose 2021-0 No Unknown 3- 00:00: 00 ketorolac 2021-0 2021- No 15mg 15 mg, Unive rs (TORADOL) 09-22 03-16 Slow IV ity of injection 17:00: 16:59 Push, Q6H, [place] 15 mg 00 :00 4 doses, Medical First dose Branch on Tue09/22/21 at 1200, Last dose on Tue09/23/21 at 0600, Routine NaCl 0.9% 2021- No 1000mL at 999 Uni vers (NS) bolus 09-22 03-15 mL/hr, ity of infusion 16:15: 17:05 1,000 mL, [place] 1,000 mL 00 :00 IV Medical Piggyback, Branch ONCE, 1 dose, On Tue09/22/21 at 1115, STAT ondansetron 2021- No 4mg 4 mg, Slow Univers (ZOFRAN 3 03-15 IV Push, ity of (PF)) 15:15: [...] 2021-0 No Unknown 1-19 00:00: 00 hydrochloro 2022-0 [...] Dose 2022-0 No Unknown 1-19 00:00: 00 morpHINE 2021-1 1- No 4mg 4 mg, Slow Un fabiana injection 4 2-09 12- IV Push, ity of mg 14:30: [...] Indication s: acute pain ondansetron 2020-07 Yes [id number] 4mg Take 1 [facility] 4 mg 2-09 [...] Indication s: acute pain ondansetron 2020-07 Yes [id number] 4mg Take 1 [facility] 4 mg 2-09 [...] Indication s: acute pain ondansetron 2020-07 Yes [id number] 4mg Take 1 [facility] 4 mg -09 [...] Indication s: acute pain ondansetron 2020-07- No [id number] 4mg Take 1 [facility] 4 mg 08-19 [...] 05/30/21 at 1800, Routine iopamidol 2020-07- No [id number] 100mL 100 mL, Univers (ISOVUE 07-30 9109 Intravenou ity o f 370-500 mL) 23:48: 23:48 s, ONCE, 1 [place] injection 00 :00 dose, On Medica l 100 mL Sat Branch 05/30/21 at 1800, Routine ibuprofen 2020-07 Yes [id number] 600mg Take 1 [facility] 600 mg -20 [id number] tablet by ity of tablet 00:00: mouth [place] 00 every 6 Medical (six) Branch hours as needed for Pain (scale 4-6). traMADoL 50 2020-07 Yes [id number] 50mg Take 1 Univ ers mg tablet 1-20 tablet by ity o f 00:00: mouth [place] 00 every 6 Medical (six) Branch hours as needed for Pain (scale 7-10). Indication s: acute pain ibuprofen 2020-07 Yes [id number] 600mg Take 1 [facility] 600 mg 1-20 [id number] tablet by ity of tablet 00:00: mouth [place] 00 every 6 Medical (six) Branch hours as needed for Pain (scale 4-6). traMADoL 50 2020-07 Yes [id number] 50mg Take 1 Univ ers mg tablet 1-20 tablet by ity o f 00:00: mouth [place] 00 every 6 Medical (six) Branch hours as needed for Pain (scale 7-10). Indication s: acute pain ibuprofen 2020-07 Yes [id number] 600mg Take 1 [facility] 600 mg 1-20 [id number] tablet by ity of tablet 00:00: mouth [place] 00 every 6 Medical (six) Branch hours as needed for Pain (scale 4-6). traMADoL 50 2020-07 Yes [id number] 50mg Take 1 Univ ers mg tablet 1-20 tablet by ity o f 00:00: mouth [place] 00 every 6 Medical (six) Branch hours as needed for Pain (scale 7-10). Indication s: acute pain ibuprofen 2020-07 Yes [id number] 600mg Take 1 [facility] 600 mg 1-20 [id number] tablet by ity of tablet 00:00: mouth [place] 00 every 6 Medical (six) Branch hours as needed for Pain (scale 4-6). traMADoL 50 2020-07 Yes [id number] 50mg Take 1 Univ ers mg tablet 1-20 tablet by ity o f 00:00: mouth [place] 00 every 6 Medical (six) Branch hours as needed for Pain (scale 7-10). Indication s: acute pain ibuprofen 2020-07 Yes [id number] 600mg Take 1 [facility] 600 mg 1-20 [id number] tablet by ity of tablet 00:00: mouth [place] 00 every 6 Medical (six) Branch hours as needed for Pain (scale 4-6). ibuprofen 2020-07 Yes [id number] 600mg Take 1 [facility] 600 mg 1-20 [id number] tablet by ity of tablet 00:00: mouth [place] 00 every 6 Medical (six) Branch hours as needed for Pain (scale 4-6). ibuprofen 2020-07- No [id number] 600mg Take 1 [facility] 600 mg 1-20 02-16 [id number] tablet by ity o f tablet 00:00: 00:00 mouth [place] 00 :00 every 6 Medical (six) Branch hours as needed for Pain (scale 4-6). traMADoL 50 2021-1 2022- No [id number] 50mg Take 1 Uni vers mg tablet 07-30 tablet by ity of 00:00: 00:00 mouth [place] 00 :00 every 6 Medical (six) Branch hours as needed for Pain (scale 7-10). Indication s: acute pain [facility] 5 2020-07 No 1mg mg tablet 07-11 00:00: 00 [facility] 5 2020-07 No 1mg mg tablet 07-11 00:00: 00 [facility] 2020-07 No 1mg mg tablet 07-11 00:00: 00 [facility] 2020-07 No 1mg mg tablet 07-11 00:00: 00 [facility] 5 2020-07 No 1mg mg tablet 07-11 00:00: 00 [facility] 2020-07 No 1mg mg tablet 07-11 00:00: 00 [facility] 2020-07 No 1mg mg tablet 07-11 00:00: 00 [facility] 2020-07 No 1mg mg tablet 07-11 00:00: 00 [facility] 2020-07 No 1mg mg tablet 07-11 00:00: 00 TAKE 1 TAB 2020-07 No PO Q AM 07-11 00:00: 00 TAKE 1 TAB 2020-07 [...] 2021-1 No Unknown 0-07 00:00: 00 Dose 2021-1 No Unknown 0-07 00:00: 00 Tresiba 2021-0 [...] mg 9-28 capsule 00:00: 00 Vascepa 1 2021-0 No 1gram gram 9-28 capsule 00:00: 00 [...] 9-13 00:00: 00 VASCEPA 1 2020-0 Yes [id number] TAKE 3 U nivers gram 9-10 CAPSULES ity of capsule 00:00: BY MOUTH [place] EVERY DAY Medical Branch VASCEPA 1 2020-0 Yes [id number] TAKE 3 U nivers gram 9-10 CAPSULES ity of capsule 00:00: BY MOUTH [place] EVERY DAY Medical Branch VASCEPA 1 2020-0 Yes [id number] TAKE 3 U nivers gram 9-10 CAPSULES ity of capsule 00:00: BY MOUTH [place] EVERY DAY Medical Branch VASCEPA 1 2020-0 Yes [id number] TAKE 3 U nivers gram 9-10 CAPSULES ity of capsule 00:00: BY MOUTH [place] EVERY DAY Medical Branch VASCEPA 1 2020-0 Yes [id number] TAKE 3 U nivers gram 9-10 CAPSULES ity of capsule 00:00: BY MOUTH [place] EVERY DAY Medical Branch VASCEPA 1 2020-0 Yes [id number] TAKE 3 U nivers gram 9-10 CAPSULES ity of capsule 00:00: BY MOUTH [place] EVERY DAY Medical Branch VASCEPA 1 2020-0 Yes [id number] TAKE 3 U nivers gram 9-10 CAPSULES ity of capsule 00:00: BY MOUTH [place] EVERY DAY Medical Branch VASCEPA 1 2020-0 Yes [id number] TAKE 3 U nivers gram 9-10 CAPSULES ity of capsule 00:00: BY MOUTH [place] EVERY DAY Medical Branch VASCEPA 1 2020-0 Yes [id number] TAKE 3 U nivers gram 9-10 CAPSULES ity of capsule 00:00: BY MOUTH [place] EVERY DAY Medical Branch VASCEPA 1 2020-0 Yes [id number] TAKE 3 U nivers gram 9-10 CAPSULES ity of capsule 00:00: BY MOUTH [place] EVERY DAY Medical Branch azithromyci 2021-0 No [...] mL oral 00 syrup VASCEPA 1 2020-0 3- No [id number] TAKE 3 Univers gram 9-10 07-03 CAPSULES ity of capsule 00:00: 00:00 BY MOUTH [place] 00 :00 EVERY DAY Medical Branch metronidazo 2021-0 No [...] TWICE DAILY 00:00: UNTIL 00 FINISHED. triamcinolo 1-0 No % ne 8-04 acetonide [...] 1-0 No Unknown 6-23 00:00: 00 buspirone 2021-0 [...] 1-0 No Unknown 6-23 00:00: 00 Dose 2021-0 No Unknown 6-23 00:00: 00 Dose 2021-0 No Unknown 6-23 00:00: 00 Dose 1-0 [...] 00 nded release icosapent 2020-0 2021- No [id number] 3g Take 3 Univers ethyL 12-10 09-10 [...] 6- 00:00: 00 Dose 2021-0 No Unknown 6-01 00:00: 00 Tresiba No (3 mL) FlexTouch 6- U-100 00:00: insulin 100 00 unit/mL (3 [...] N ORAL 5-27 mouth. ity of 22:32: [place] [address] Medical Branch multivitami Yes Take by Uni vers n with 5-27 mouth. ity of minerals 22:32: [place] (HAIR,SKIN 10 Medical AND NAILS Branch ORAL) Lactobacill Yes Take by Uni vers us 5-27 mouth. ity of acidophilus 17:32: [place] (PROBIOTIC 10 Medical ORAL) Branch MULTIVITAMI Yes Take by Uni vers N ORAL 5-27 mouth. ity of 17:32: [place] [address] Medical Branch multivitami Yes Take by Uni vers n with 5-27 mouth. ity of minerals 17:32: [place] (HAIR,SKIN 10 Medical AND NAILS Branch ORAL) Lactobacill Yes Take by Uni vers us 5-27 mouth. ity of acidophilus 17:32: [place] (PROBIOTIC 10 Medical ORAL) Branch MULTIVITAMI Yes Take by Uni vers N ORAL 5-27 mouth. ity of 17:32: [place] Medical Branch multivitami Yes Take by Uni vers n with 5-27 mouth. ity of minerals 17:32: [place] (HAIR,SKIN 10 Medical AND NAILS Branch ORAL) Lactobacill Yes Take by Uni vers us 5-27 mouth. ity of acidophilus 17:32: [place] (PROBIOTIC 10 Medical ORAL) Branch MULTIVITAMI Yes Take by Uni vers N ORAL 5-27 mouth. ity of 17:32: [place] Medical Branch multivitami 2021-0 Yes Take by Uni vers n with [...] 600 mg 5-03 tablet 00:00: 00 Dose 1-0 No Unknown 5-03 00:00: 00 glimepiride 2021-0 [...] Medical times Branch daily with meals. glimepiride 1-0 Yes 4mg Take 1 Univ ers 4 mg tablet 5-02 tablet by ity of 00:00: mouth (two) Medical times Branch daily with meals. glimepiride 1-0 Yes 4mg Take 1 Univ ers 4 mg tablet 5-02 tablet by ity of 00:00: mouth (two) Medical times Branch daily with meals. glimepiride 1-0 Yes 4mg Take 1 Univ ers 4 [...] times Branch daily with meals. glimepiride 2021-0 2023- No 4mg Take 1 Uni vers 4 mg tablet 5-02 07-03 tablet by it y of 00:00: 00:00 mouth 2 [place] 00 :00 (two) Medical times Branch daily with meals. fenofibrate Yes 134mg Take 1 Uni vers micronized 4-30 capsule by ity of 134 mg 00:00: mouth [place] capsule 00 daily. Medical Branch metFORMIN Yes [id number] 1000mg Take 1 [facility] 1,000 mg 4-30 tablet by ity of tablet 00:00: mouth 2 (two) Medical times Branch daily with meals. blood sugar Yes [id number] Use daily [facility] diagnostic 4-30 Dx E11.65 ity of (ONETOUCH 00:00: [place] VERIO TEST 00 Medical STRIPS) Branch strip lancets Yes [id number] Use daily Univers (ONE TOUCH 4-30 Dx E11.65 ity of DELICA) 33 00:00: [place] gauge Misc 00 Medical Branch gabapentin Yes [id number] 600mg Take 1 [facility] 600 mg 4-30 tablet by ity of tablet 00:00: mouth 2 [place] (two) Medical times Branch daily. lisinopriL Yes [id number] 2.5mg Take 1 [facility] 2.5 mg 4-30 tablet by ity of tablet 00:00: mouth [place] 00 daily. Medical Branch insulin Yes [id number] 35U inject 35 [facility] degludec 4-30 Units ity of (TRESIBA 00:00: [place] FLEXTOUCH 00 skin 2 Medical U-100) 100 (two) Branch unit/mL (3 times mL) InPn daily. fenofibrate Yes 134mg Take 1 Uni vers micronized 4-30 capsule by ity of 134 mg 00:00: mouth [place] capsule 00 daily. Medical Branch metFORMIN Yes [id number] 1000mg Take 1 [facility] 1,000 mg 4-30 tablet by ity of tablet 00:00: mouth 2 [place] (two) Medical times Branch daily with meals. blood sugar Yes [id number] Use daily [facility] diagnostic 4-30 Dx E11.65 ity of (ONETOUCH 00:00: [place] VERIO TEST 00 Medical STRIPS) Branch strip lancets 2020-0 Yes [id number] Use daily Univers (ONE TOUCH 4-30 Dx E11.65 ity of DELICA) 33 00:00: [facility] 00 Medical Branch lisinopriL Yes [id number] 2.5mg Take 1 Univers 2.5 mg 4-30 tablet by ity of tablet 00:00: mouth [place] 00 daily. Medical Branch atorvastati Yes 40mg Take 1 Univ ers n 40 mg 4-30 tablet by ity of tablet 00:00: mouth at [place] 00 bedtime. Medical Branch fenofibrate Yes 134mg Take 1 Uni vers micronized 4-30 capsule by ity of 134 mg 00:00: mouth [place] capsule 00 daily. Medical Branch metFORMIN Yes [id number] 1000mg Take 1 [facility] 1,000 mg 4-30 tablet by ity of tablet 00:00: mouth 2 [place] 00 (two) Medical times Branch daily with meals. blood sugar Yes [id number] Use daily [facility] diagnostic 4-30 Dx E11.65 ity of (ONETOUCH 00:00: [place] VERIO TEST 00 Medical STRIPS) Branch strip lancets Yes [id number] Use daily Univers (ONE TOUCH 4-30 Dx E11.65 ity of DELICA) 33 00:00: [facility] 00 Medical Branch gabapentin Yes [id number] 600mg Take 1 [facility] 600 mg 4-30 tablet by ity of tablet 00:00: mouth 2 [place] 00 (two) Medical times Branch daily. lisinopriL Yes [id number] 2.5mg Take 1 [facility] 2.5 mg 4-30 tablet by ity of tablet 00:00: mouth [place] 00 daily. Medical Branch insulin Yes [id number] 35U inject 35 [facility] degludec 4-30 Units ity of (TRESIBA 00:00: [place] FLEXTOUCH 00 skin 2 Medical U-100) 100 (two) Branch unit/mL (3 times mL) InPn daily. atorvastati Yes 40mg Take 1 Univ ers n 40 mg 4-30 tablet by ity of tablet 00:00: mouth at [place] [address] bedtime. Medical Branch fenofibrate Yes 134mg Take 1 Uni vers micronized 4-30 capsule by ity of 134 mg 00:00: mouth [place] capsule 00 daily. Medical Branch metFORMIN Yes [id number] 1000mg Take 1 [facility] 1,000 mg 4-30 tablet by ity of tablet 00:00: mouth 2 (two) Medical times Branch daily with meals. blood sugar 0 Yes [id number] Use daily [facility] diagnostic 4-30 Dx E11.65 ity of (ONETOUCH 00:00: [place] VERIO TEST 00 Medical STRIPS) Branch strip lancets 2020-0 Yes [id number] Use daily Univers (ONE TOUCH 4-30 Dx E11.65 ity of DELICA) 33 00:00: [place] [facility] 00 Medical Branch gabapentin 0 Yes [id number] 600mg Take 1 [facility] 600 mg 4-30 tablet by ity of tablet 00:00: mouth 2 (two) Medical times Branch daily. lisinopriL Yes [id number] 2.5mg Take 1 [facility] 2.5 mg 4-30 tablet by ity of tablet 00:00: mouth 00 daily. Medical Branch insulin Yes [id number] 35U inject 35 Univers degludec 4-30 Units [...] 00 daily. Medical Branch metFORMIN 0 Yes [id number] 1000mg Take 1 [facility] 1,000 mg 4-30 tablet by ity of tablet 00:00: mouth 2 [place] (two) Medical times Branch daily with meals. blood sugar 0 Yes [id number] Use daily [facility] diagnostic 4-30 Dx E11.65 ity of (ONETOUCH 00:00: [place] VERIO TEST 00 Medical STRIPS) Branch strip lancets 2020-0 Yes [id number] Use daily Univers (ONE TOUCH 4-30 Dx E11.65 ity of DELICA) 33 00:00: [place] gauge Misc 00 Medical Branch gabapentin 2020-0 Yes [id number] 600mg Take 1 [facility] 600 mg 4-30 tablet by ity of tablet 00:00: mouth 2 [place] 00 (two) Medical times Branch daily. lisinopriL 0 Yes [id number] 2.5mg Take 1 [facility] 2.5 mg 4-30 tablet by ity of tablet 00:00: mouth [place] 00 daily. Medical Branch insulin 0 Yes [id number] 35U inject 35 Univers degludec 4-30 Units [...] ity of 134 mg 00:00: mouth [place] [facility] 00 daily. Medical Branch metFORMIN Yes [id number] 1000mg Take 1 Univers 1,000 mg 4-30 tablet by ity of tablet 00:00: mouth 2 00 (two) Medical times Branch daily with meals. blood sugar Yes [id number] Use daily [facility] diagnostic 4-30 Dx E11.65 ity of (ONETOUCH 00:00: [place] VERIO TEST 00 Medical STRIPS) Branch strip lancets 0 Yes [id number] Use daily Univers (ONE TOUCH 4-30 Dx E11.65 ity of DELICA) 33 00:00: [place] gauge Misc 00 Medical Branch gabapentin 0 Yes [id number] 600mg Take 1 [facility] 600 mg 4-30 tablet by ity of tablet 00:00: mouth 2 [place] 00 (two) Medical times Branch daily. lisinopriL 0 Yes [id number] 2.5mg Take 1 [facility] 2.5 mg 4-30 tablet by ity of tablet 00:00: mouth [place] 00 daily. Medical Branch insulin 0 Yes [id number] 35U inject 35 Univers degludec 4-30 Units [...] capsule 00 daily. Medical Branch metFORMIN Yes [id number] 1000mg Take 1 [facility] 1,000 mg 4-30 tablet by ity of tablet 00:00: mouth 2 [place] 00 (two) Medical times Branch daily with meals. blood sugar Yes [id number] Use daily [facility] diagnostic 4-30 Dx E11.65 ity of (ONETOUCH 00:00: [place] VERIO TEST 00 Medical STRIPS) Branch strip lancets Yes [id number] Use daily Univers (ONE TOUCH 4-30 Dx E11.65 ity of DELICA) 33 00:00: [place] gauge Misc 00 Medical Branch gabapentin Yes [id number] 600mg Take 1 [facility] 600 mg 4-30 tablet by ity of tablet 00:00: mouth 2 [place] 00 (two) Medical times Branch daily. lisinopriL Yes [id number] 2.5mg Take 1 [facility] 2.5 mg 4-30 tablet by ity of tablet 00:00: mouth [place] 00 daily. Medical Branch insulin Yes [id number] 35U inject 35 [facility] degludec 4-30 Units [...] capsule 00 daily. Medical Branch metFORMIN Yes [id number] 1000mg Take 1 [facility] 1,000 mg 4-30 tablet by ity of tablet 00:00: mouth 2 [place] (two) Medical times Branch daily with meals. blood sugar Yes [id number] Use daily [facility] diagnostic 4-30 Dx E11.65 ity of (ONETOUCH 00:00: [place] VERIO TEST 00 Medical STRIPS) Branch strip lancets 0 Yes [id number] Use daily Univers (ONE TOUCH 4-30 Dx E11.65 ity of DELICA) 33 00:00: [facility] Medical Branch gabapentin 2020-0 Yes [id number] 600mg Take 1 [facility] 600 mg 4-30 tablet by ity of tablet 00:00: mouth 2 [place] (two) Medical times Branch daily. lisinopriL Yes [id number] 2.5mg Take 1 Univers 2.5 mg 4-30 tablet by ity of tablet 00:00: mouth [place] 00 daily. Medical Branch insulin 0 Yes [id number] 35U inject 35 Univers degludec 4-30 Units [...] ity of 134 mg 00:00: mouth [place] [facility] 00 daily. Medical Branch metFORMIN 0 Yes [id number] 1000mg Take 1 Univers 1,000 mg 4-30 tablet by ity of tablet 00:00: mouth 2 [place] (two) Medical times Branch daily with meals. blood sugar 0 Yes [id number] Use daily [facility] diagnostic 4-30 Dx E11.65 ity of (ONETOUCH 00:00: [place] VERIO TEST 00 Medical STRIPS) Branch strip lancets 2020-0 Yes [id number] Use daily Univers (ONE TOUCH 4-30 Dx E11.65 ity of DELICA) 33 00:00: [facility] Medical Branch gabapentin 2020-0 Yes [id number] 600mg Take 1 [facility] 600 mg 4-30 tablet by ity of tablet 00:00: mouth 2 [place] (two) Medical times Branch daily. lisinopriL 2020-0 Yes [id number] 2.5mg Take 1 [facility] 2.5 mg 4-30 tablet by ity of tablet 00:00: mouth [place] 00 daily. Medical Branch fenofibrate 2020-0 Yes 134mg Take 1 Uni vers micronized 4-30 capsule by ity of 134 mg 00:00: mouth [place] capsule 00 daily. Medical Branch metFORMIN 2020-0 Yes [id number] 1000mg Take 1 [facility] 1,000 mg 4-30 tablet by ity of tablet 00:00: mouth 2 (two) Medical times Branch daily with meals. blood sugar 0 Yes [id number] Use daily [facility] diagnostic 4-30 Dx E11.65 ity of (ONETOUCH 00:00: [place] VERIO TEST 00 Medical STRIPS) Branch strip lancets 2020-0 Yes [id number] Use daily Univers (ONE TOUCH 4-30 Dx E11.65 ity of DELICA) 33 00:00: [place] [facility] 00 Medical Branch gabapentin 2020-0 Yes [id number] 600mg Take 1 [facility] 600 mg 4-30 tablet by ity of tablet 00:00: mouth 2 [place] (two) Medical times Branch daily. lisinopriL 0 Yes [id number] 2.5mg Take 1 Univers 2.5 mg 4-30 tablet by ity of tablet 00:00: mouth [place] 00 daily. Medical Branch fenofibrate 0 Yes 134mg Take 1 Uni vers micronized 4-30 capsule by ity of 134 mg 00:00: mouth [place] capsule 00 daily. Medical Branch metFORMIN 0 Yes [id number] 1000mg Take 1 [facility] 1,000 mg 4-30 tablet by ity of tablet 00:00: mouth 2 [place] (two) Medical times Branch daily with meals. blood sugar 0 Yes [id number] Use daily [facility] diagnostic 4-30 Dx E11.65 ity of (ONETOUCH 00:00: [place] VERIO TEST 00 Medical STRIPS) Branch strip lancets 2020-0 Yes [id number] Use daily Univers (ONE TOUCH 4-30 Dx E11.65 ity of DELICA) 33 00:00: [place] [facility] 00 Medical Branch gabapentin 2020-0 Yes [id number] 600mg Take 1 [facility] 600 mg 4-30 tablet by ity of tablet 00:00: mouth 2 [place] (two) Medical times Branch daily. lisinopriL 2020-0 Yes [id number] 2.5mg Take 1 Univers 2.5 mg 4-30 tablet by ity of tablet 00:00: mouth [place] 00 daily. Medical Branch gabapentin 2022- No [id number] 600mg Take 1 [facility] 600 mg 4-30 07-03 tablet by ity of tablet 00:00: 00:00 mouth 2 [place] 00 :00 (two) Medical times Branch daily. insulin 2022- No [id number] 35U inject 35 [facility] degludec 4-30 02-20 Units ity of (TRESIBA 00:00: 00:00 under the [place] FLEXTOUCH 00 :00 skin 2 Medical U-100) 100 (two) Branch unit/mL (3 times mL) InPn daily. atorvastati 2022- No 40mg Take 1 Uni vers n 40 mg 4-30 -20 tablet by ity of tablet 00:00: 00:00 mouth at [place] 00 :00 bedtime. Medical Branch glimepiride 2020-0 No 1mg 4 [...] s pen injector Victoza 2020-0 No (18 3-Crhistofer 0.6 3-18 mg/3 mg/0.1 mL 00:00: mL) [...] 150 mg 1-28 tablet 00:00: 00 metronidazo 2020-0 No 1mg le 500 mg 1-28 tablet [...] 40 mg 2-23 tablet 00:00: 00 gabapentin 2019-1 No 1mg 600 mg 2-23 tablet 00:00: 00 Victoza 2019- No (18 3-Christofer 0.6 2-23 mg/3 mg/0.1 mL 00:00: mL) (18 mg/3 00 mL) subcutaneou s pen injector Tresiba 2019-07 No 30(3 FlexTouch 2-23 mL) U-100 00:00: insulin 100 00 unit/mL (3 mL) subcutaneou s pen hydrochloro 2019- No 1mg thiazide 25 2-23 mg tablet 00:00: 00 glimepiride 2020- No 1mg 2 mg tablet 2-23 00:00: [...] mg 2-04 tablet 00:00: 00 Bactrim DS 2019- No [...] 100 mg 1-05 tablet 00:00: 00 hydrochloro 2019- No 1mg [...] 1mg 600 mg 0-13 tablet 00:00: 00 metformin 2019-0 No 1mg 1,000 mg 8-31 tablet 00:00: [...] 1mg 5 mg tablet 03-10 00:00: 00 Victoza 2020-0 No (18 [...] lisinopril 2020-0 No 1mg 5 mg tablet 11-19 00:00: 00 lisinopril 2020-0 No 1mg 5 mg tablet 11-19 00:00: 00 lisinopril 2020-0 No 1mg 5 mg tablet 11-19 00:00: 00 lisinopril 2020-0 No 1mg 5 mg tablet 11-19 00:00: 00 lisinopril 2020-0 No 1mg 5 mg tablet 11-19 00:00: 00 lisinopril 2020-0 No 1mg 5 mg tablet 11-19 00:00: 00 Ozempic 2020-0 No (5)/125 0.25 mg or 3-30 -30(10) 0.5 mg (2 00:00: mg/1.5 mL) 00 subcutane s pen injector Ozempic 2020-0 No mg(2 0.25 mg or 3-30 mg/1.5 0.5 mg (2 00:00: mL) mg/1.5 mL) [facility] Ozempic 2020-0 No (5)/125 0.25 mg or 3-30 -30(10) 0.5 mg (2 00:00: mg/1.5 mL) 00 subcutane s pen injector Ozempic 2020-0 No (5)/125 0.25 mg or 3-30 -30(10) 0.5 mg (2 00:00: [facility].5 mL) [facility]-0 No (5)/125 0.25 mg or 3-30 -30(10) 0.5 mg (2 00:00: mg/1.5 mL) 00 subcutane s pen injector Ozempic 2020-0 No (5)/125 0.25 mg or 3-30 -30(10) 0.5 mg (2 00:00: mg/1.5 mL) 00 subcutane s pen injector Ozempic 2020-0 No (5)/125 0.25 mg or 3-30 -30(10) 0.5 mg (2 00:00: mg/1.5 mL) [facility] Ozempic 2020-0 No (5)/125 [...] subcutaneou s pen injector FREESTYLE 2020-0 Yes [id number] 1{each} 1 Each Univers BRENDA 14 3-03 every 14 ity of DAY SENSOR 00:00: (fourteen) [place] 00 days. Medical Branch FREESTYLE 2020-0 Yes [id number] 1{each} 1 Each Univers BRENDA 14 3-03 daily. ity of DAY READER 00:00: [place] [facility] 00 Medical Branch FREESTYLE 2020-0 Yes [id number] 1{each} 1 Each [facility] BRENDA 14 3-03 every 14 ity of DAY SENSOR 00:00: (fourteen) [place] 00 days. Medical Branch FREESTYLE 2020-0 Yes [id number] 1{each} 1 Each [facility] BRENDA 14 3-03 daily. ity of DAY READER 00:00: [place] [facility] 00 Medical Branch FREESTYLE 2020-0 Yes [id number] 1{each} 1 Each [facility] BRENDA 14 3-03 every 14 ity of DAY SENSOR 00:00: (fourteen) [place] 00 days. Medical Branch FREESTYLE 2020-0 Yes [id number] 1{each} 1 Each [facility] BRENDA 14 3-03 daily. ity of DAY READER 00:00: [place] [facility] 00 Medical Branch FREESTYLE 2020-0 Yes [id number] 1{each} 1 Each [facility] BRENDA 14 3-03 every 14 ity of DAY SENSOR 00:00: (fourteen) [place] 00 days. Medical Branch FREESTYLE 2020-0 Yes [id number] 1{each} 1 Each [facility] BRENDA 14 3-03 daily. ity of DAY READER 00:00: [place] [facility] 00 Medical Branch FREESTYLE 2020-0 Yes [id number] 1{each} 1 Each [facility] BRENDA 14 3-03 every 14 ity of DAY SENSOR 00:00: (fourteen) [place] 00 days. Medical Branch FREESTYLE 2020-0 Yes [id number] 1{each} 1 Each [facility] BRENDA 14 3-03 daily. ity of DAY READER 00:00: [place] [facility] 00 Medical Branch FREESTYLE 2020-0 Yes [id number] 1{each} 1 Each [facility] BRENDA 14 3-03 every 14 ity of DAY SENSOR 00:00: (fourteen) [place] 00 days. Medical Branch FREESTYLE 2020-0 Yes [id number] 1{each} 1 Each [facility] BRENDA 14 3-03 daily. ity of DAY READER 00:00: [place] [facility] 00 Medical Branch FREESTYLE 2020-0 Yes [id number] 1{each} 1 Each [facility] BRENDA 14 3-03 every 14 ity of DAY SENSOR 00:00: (fourteen) [place] 00 days. Medical Branch FREESTYLE 2020-0 Yes [id number] 1{each} 1 Each [facility] BRENDA 14 3-03 daily. ity of DAY READER 00:00: [place] [facility] 00 Medical Branch FREESTYLE 2020-0 Yes [id number] 1{each} 1 Each [facility] BRENDA 14 3-03 every 14 ity of DAY SENSOR 00:00: (fourteen) [place] 00 days. Medical Branch FREESTYLE 2020-0 Yes [id number] 1{each} 1 Each [facility] BRENDA 14 3-03 daily. ity of DAY READER 00:00: [place] [facility] 00 Medical Branch FREESTYLE 2020-0 Yes [id number] 1{each} 1 Each Univers BREDNA 14 3-03 every 14 ity of DAY SENSOR 00:00: (fourteen) [place] 00 days. Medical Branch FREESTYLE 2020-0 Yes [id number] 1{each} 1 Each [facility] BRENDA 14 3-03 daily. ity of DAY READER 00:00: [place] [facility] 00 Medical Branch FREESTYLE 2020-0 Yes [id number] 1{each} 1 Each [facility] BRENDA 14 3-03 every 14 ity of DAY SENSOR 00:00: (fourteen) [place] 00 days. Medical Branch FREESTYLE 2020-0 Yes [id number] 1{each} 1 Each [facility] BRENDA 14 3-03 daily. ity of DAY READER 00:00: [place] [facility] 00 Medical Branch FREESTYLE 2020-0 Yes [id number] 1{each} 1 Each [facility] BRENDA 14 3-03 every 14 ity of DAY SENSOR 00:00: (fourteen) [place] 00 days. Medical Branch FREESTYLE 2020-0 Yes [id number] 1{each} 1 Each [facility] BRENDA 14 3-03 daily. ity of DAY READER 00:00: [place] [facility] 00 Medical Branch Ozempic 2020-0 [...] lisinopril 2020-0 No 1mg 5 mg tablet 219 00:00: 00 metformin 2020-0 No 1mg 1,000 mg 2-19 tablet 00:00: 00 atorvastati 2020-0 No 1mg n 40 mg 2-19 tablet 00:00: 00 Ozempic 2020-0 No (5)/125 0.25 mg or 2-19 -30(10) 0.5 mg (2 00:00: mg/1.5 mL) 00 subcutaneou s pen injector lisinopril 2020-0 No 1mg 5 mg tablet 219 00:00: 00 metformin 2020-0 No 1mg 1,000 [...] 0.5 mg (2 00:00: mg[facility]1.5 mL) [facility] 2020-0 No 1mg 5 mg tablet 2-19 00:00: 00 metformin 2020-0 No 1mg 1,000 mg 2-19 tablet 00:00: 00 atorvastati 2020-0 No 1mg n 40 mg 2-19 tablet 00:00: 00 Ozempic 2020-0 No (5)/125 0.25 mg or 2-19 -30(10) 0.5 mg (2 00:00: mg/1.5 mL) [facility] lisinop[facility] 2020-0 No 1mg [...] tablet 2-30 00:00: 00 traMADol 2018-07 Yes [id number] 50mg Take 1 Uni vers (ULTRAM) 50 2-28 tablet by ity of mg tablet 00:00: mouth [place] 00 every 6 Medical (six) Branch hours as needed for Pain (scale 7-10). ondansetron 2018-07 Yes [id number] 4mg Take 1 Univers (ZOFRAN) 4 2-28 tablet by ity of mg tablet 00:00: mouth [place] 00 every 8 Medical (eight) Branch hours as needed for Nausea and Vomiting (N/V). ondansetron 2018-07 Yes [id number] 4mg Take 1 Univers (ZOFRAN) 4 2-28 tablet by ity of mg tablet 00:00: mouth [place] 00 every 8 Medical (eight) Branch hours as needed for Nausea and Vomiting (N/V). ondansetron 2018-07 Yes [id number] 4mg Take 1 Univers (ZOFRAN) 4 2-28 tablet by ity of mg tablet 00:00: mouth [place] 00 every 8 Medical (eight) Branch hours as needed for Nausea and Vomiting (N/V). ondansetron 2018-07 Yes [id number] 4mg Take 1 Univers (ZOFRAN) 4 2-28 tablet by ity of mg tablet 00:00: mouth [place] 00 every 8 Medical (eight) Branch hours as needed for Nausea and Vomiting (N/V). ondansetron 2018-07 Yes [id number] 4mg Take 1 Univers (ZOFRAN) 4 2-28 tablet by ity of mg tablet 00:00: mouth [place] 00 every 8 Medical (eight) Branch hours as needed for Nausea and Vomiting (N/V). ondansetron 2018-07 Yes [id number] 4mg Take 1 Univers (ZOFRAN) 4 2-28 tablet by ity of mg tablet 00:00: mouth [place] 00 every 8 Medical (eight) Branch hours as needed for Nausea and Vomiting (N/V). ondansetron 2018-07 Yes [id number] 4mg Take 1 Univers (ZOFRAN) 4 2-28 tablet by ity of mg tablet 00:00: mouth [place] 00 every 8 Medical (eight) Branch hours as needed for Nausea and Vomiting (N/V). ondansetron 2018-07- No [id number] 4mg Take 1 Univers (ZOFRAN) 4 2-28 02-16 tablet by ity of mg tablet 00:00: 00:00 mouth [place] 00 :00 every 8 Medical (eight) Branch hours as needed for Nausea and Vomiting (N/V). traMADol 2018-07- No [id number] 50mg Take 1 Un fabiana (ULTRAM) 50 [...] unit-1 00:00: mg/mL eye 00 drops Polytrim 2018-1 No 11 10,000 0-14 mg/mL unit-1 00:00: [...] 00 metformin 2019-0 No 1mg 1,000 mg -25 tablet 00:00: 00 lisinopril 2019-0 No 1mg [...] 50 9-17 mg capsule 00:00: 00 hydrOXYzine Yes [id number] 10mg Take 1 Univers 10 mg 9-13 tablet by ity of tablet 00:00: mouth [place] 00 every 6 Medical (six) Branch hours. hydrOXYzine Yes [id number] 10mg Take 1 Univers 10 mg 9-13 tablet by ity of tablet 00:00: mouth [place] 00 every 6 Medical (six) Branch hours. hydrOXYzine Yes [id number] 10mg Take 1 Univers 10 mg 9-13 tablet by ity of tablet 00:00: mouth [place] 00 every 6 Medical (six) Branch hours. hydrOXYzine Yes [id number] 10mg Take 1 Univers 10 mg 9-13 tablet by ity of tablet 00:00: mouth [place] 00 every 6 Medical (six) Branch hours. hydrOXYzine Yes [id number] 10mg Take 1 Univers 10 mg 9-13 tablet by ity of tablet 00:00: mouth [place] 00 every 6 Medical (six) Branch hours. hydrOXYzine Yes [id number] 10mg Take 1 Univers 10 mg 9-13 tablet by ity of tablet 00:00: mouth [place] 00 every 6 Medical (six) Branch hours. hydrOXYzine Yes [id number] 10mg Take 1 Univers 10 mg 9-13 tablet by ity of tablet 00:00: mouth [place] 00 every 6 Medical (six) Branch hours. hydrOXYzine 2022- No [id number] 10mg Take 1 Univers 10 mg 9-13 [...] lisinopril 2019-0 No 1mg 5 mg tablet 11-29 00:00: 00 fluconazole 2019-0 No 1mg 150 [...] 00 trazodone 2018-0 No 12mg 100 mg 9- tablet 00:00: 00 trazodone 2018-0 No 12mg 100 mg - tablet 00:00: 00 Effexor XR 2018-0 No 1mg 75 mg 04-06 capsule,ext 00:00: ended 00 release Lexapro 20 2018-0 No 1mg mg tablet 04-06 00:00: 00 Abilify 5 2018-0 No 1mg mg tablet 04-06 00:00: 00 trazodone 2018-0 No 12mg 100 mg 9- tablet 00:00: 00 trazodone 2018-0 No 12mg 100 mg 9- tablet 00:00: 00 Effexor XR 2018-0 No [...] Claritin 10 2018-0 No 1mg mg tablet 9 00:00: 00 amoxicillin 2018-0 No 1mg 875 [...] Claritin 10 2018-0 No 1mg mg tablet 9 00:00: 00 amoxicillin 2018-0 No 1mg 875 [...] 1mg mg tablet - 00:00: 00 Abilify 2018-0 No 1mg mg tablet - 00:00: 00 Lexapro 20 2018-0 No 1mg mg tablet - 00:00: 00 Abilify 2018-0 No 1mg mg tablet 07-18 00:00: [...] mg-15 mg/5 00:00: mL syrup 00 loratadine 2017-1 No 1mg 10 mg [...] 2mg 100 mg 9-28 tablet 00:00: 00 buspirone 2017-0 No 1mg [...] No 1mg mg tablet 03-24 00:00: 00 Abilify 5 2017-0 No 1mg [...] Abilify 5 2017-0 No 1mg mg tablet 411 00:00: 00 Lexapro 20 2017-0 No 15mg mg tablet 4 00:00: 00 trazodone 2017-0 No 1mg 150 mg 4-11 tablet 00:00: 00 Carvedilol 2016-0 2022- No [id number] 6.25mg Take 1 Andreea 6.25 MG 10-18 tablet by Seibisol d oral Tab 00:00: 00:00 mouth 2 - 00 :00 times Externa daily l (with meals) MethIMAzole 2016-2022- No [id number] 10mg Take 1 Andreea 10 MG oral -09-07 tablet by Clay bold Tab 00:00: 00:00 mouth - 00 :00 daily Externa (with l breakfast) Lexapro 20 2017-0 No 15mg mg tablet 09-14 00:00: 00 Abilify 5 2016-0 No 1mg [...] Abilify 5 2017-0 No 1mg mg tablet -12 00:00: 00 trazodone 2017-0 No 1mg 150 [...] mg 1-03 tablet 00:00: 00 Lexapro 20 1 No 1mg mg tablet 1 00:00: 00 trazodone 2015-07 No 1mg 150 mg 1-03 tablet 00:00: 00 hydroxyzine 2015-07 No 12mg HCl 25 mg 1-03 tablet 00:00: 00 Lexapro 2015-07 No 1mg mg tablet 1 00:00: 00 trazodone 2015-07 No 1mg 150 mg 1-03 tablet 00:00: 00 hydroxyzine 2015-07 No 12mg HCl 25 mg 1- tablet 00:00: 00 Lexapro 2015-07 No 1mg mg tablet 1 00:00: 00 trazodone 2015-07 No 1mg 150 mg 1-03 tablet 00:00: 00 hydroxyzine 2015-07 No 12mg HCl 25 mg 1- tablet 00:00: 00 Lexapro 2015-07 No 1mg mg tablet 1 00:00: 00 trazodone 2015-07 No 1mg 150 mg 1-03 tablet 00:00: 00 hydroxyzine 2015-07 No 12mg HCl 25 mg 1- tablet 00:00: 00 Lexapro 2015-07 No 1mg mg tablet 1 00:00: 00 trazodone 2015-07 No 1mg 150 mg 1- tablet 00:00: 00 hydroxyzine 2015-07 No 12mg [...] No 1mg mg capsule 4-08 00:00: 00 Vistaril 50 2016-0 No 1mg mg capsule 408 00:00: 00 Vistaril 50 2016-0 No 1mg mg capsule 4-08 00:00: 00 Vistaril 50 2016-0 No 1mg mg capsule 4 00:00: 00 Vistaril 50 2016-0 No 1mg mg capsule 408 00:00: 00 Vistaril 50 2016-0 No 1mg mg capsule 4 00:00: 00 Vistaril 50 2016-0 No 1mg mg capsule 4-08 00:00: 00 Vistaril 50 2016-0 No 1mg [...] Effexor XR 2016-0 No 1mg 150 mg -28 capsule,ext 00:00: ended 00 release doxepin 25 2015-0 No 13mg mg capsule 08-07 00:00: 00 Effexor XR 2016-0 No 1mg 150 mg -28 capsule,ext 00:00: ended 00 release doxepin 25 2015-0 No 13mg mg capsule 08-07 00:00: 00 Effexor XR 2016-0 No 1mg 150 mg -28 capsule,ext 00:00: [...] doxepin 10 2016-0 No 12mg mg capsule 14 00:00: 00 [...] 00 metformin 2015-0 No 1mg 1,000 mg -08 tablet 00:00: 00 lisinopril 2015-0 No 1mg [...] 1mg 1,000 mg 7-08 tablet 00:00: 00 Layla 100 2015-0 No 1mg mg tablet 5- 00:00: 00 Layla 100 2015-0 No 1mg mg tablet 5- 00:00: 00 Layla 100 2015-0 No 1mg mg tablet 5- 00:00: 00 Layla 100 2015-0 No 1mg mg tablet 5 00:00: 00 Layla 100 2015-0 No 1mg mg tablet 5 00:00: 00 Layla 100 2015-0 No 1mg mg tablet 5 00:00: 00 Layla 100 2015-0 No 1mg mg tablet 5 00:00: 00 Layla 100 2015-0 No 1mg mg tablet 5 00:00: 00 Layla 100 2015-0 No 1mg mg tablet 5 00:00: 00 Layla 100 2015-0 No 1mg mg tablet 5 00:00: 00 Layla 100 2015-0 No 1mg mg tablet 5 [...] lisinopril 2015-0 No 1mg 5 mg tablet 128 00:00: 00 metformin 2015-0 No 1mg 1,000 mg 1-28 tablet 00:00: 00 glimepiride 2015-0 No 1mg 4 mg tablet 1 00:00: 00 metformin 2015-0 No 1mg 1,000 mg 1-28 tablet 00:00: 00 Vistaril 50 2015-0 No 1mg mg capsule 08-07 00:00: 00 Vistaril 50 2015-0 No 1mg [...] 1mg mg capsule 08-07 00:00: 00 lisinopril 0 No 1mg 5 mg tablet 08-07 00:00: 00 metformin 2014-0 No 1mg 1,000 mg - tablet 00:00: 00 glimepiride 2014-0 No 1mg 4 mg tablet 08-07 00:00: 00 metformin 2014-0 No 1mg 1,000 mg - tablet 00:00: 00 Vistaril 50 0 No 1mg mg capsule 08-07 00:00: 00 Vistaril 50 2014-0 No 1mg mg capsule 08-07 00:00: 00 lisinopril 0 No 1mg 5 mg tablet 08-07 00:00: 00 metformin 2014-0 No 1mg 1,000 mg - tablet 00:00: 00 glimepiride 0 No 1mg 4 mg tablet 08-07 00:00: 00 metformin 2014-0 No 1mg 1,000 mg 08-07 tablet 00:00: 00 Vistaril 50 0 No 1mg mg capsule 08-07 00:00: 00 Vistaril 50 0 No 1mg mg capsule 08-07 00:00: 00 Lancets & 2013- Yes Univers Blood 2-14 ity of Glucose 00:00: [place] Strips ( Medical TOUCH [facility] 2012- Yes Univers Blood 2-14 ity of Glucose 00:00: [place] Strips ( Medical TOUCH [facility] COMBO[facility] & 2012- Yes Univers Blood 2-14 ity of Glucose 00:00: [place] Strips ( Medical TOUCH Branch COMBO) [facility] & 2012- Yes Univers Blood 2-14 ity of Glucose 00:00: [place] Strips ( Medical TOUCH Branch COMBO) [facility] & 2012- Yes Univers Blood 2-14 ity of Glucose 00:00: [place] Strips ( Medical TOUCH Branch COMBO) [facility] & 2012- Yes Univers Blood 2-14 ity of Glucose 00:00: [place] Strips ( Medical TOUCH Branch COMBO) [facility] & 2012- Yes Univers Blood 2-14 ity of Glucose 00:00: [place] Strips ( Medical TOUCH Branch COMBO) [facility] & 2013- Yes Univers Blood 2-14 [...] Immunizations Ordered Immunization Filled Immunization Date Status Commen ts Source Name Name Influenza High Dose 2022-06-02 Completed Unive rsity of 00:00:00 [facility] Moderna COVID-19 2021-07-24 Completed Vaccine 00:00:00 Moderna [...] 00:00:00 Covid-19 Vaccine 2021-07-24 Completed Andreea Mota eybold [...] Branch TDAP 2020-05-21 Completed University of 00:00:00 [facility] Pneumococcal 2020-05-21 Completed University o f Polysaccharide, 00:00:00 [place] [facility] PPSV23 (PNEUMOVAX) Branch TDAP 2020-05-21 Completed University of 00:00:00 [facility] Pneumococcal 2020-05-21 Completed University o f Polysaccharide, 00:00:00 [place] [facility] ical PPSV23 (PNEUMOVAX) Branch TDAP 2020-05-21 Completed University of 00:00:00 [facility] Pneumococcal 2020-05-21 Completed University o f Polysaccharide, 00:00:00 [place] [facility] PPSV23 (PNEUMOVAX) Branch TDAP 2020-05-21 Completed University of 00:00:00 [facility] Pneumococcal 2020-05-21 Completed University o f Polysaccharide, 00:00:00 [place] [facility] PPSV23 (PNEUMOVAX) Branch TDAP 2020-05-21 Completed University of 00:00:00 [facility] Pneumococcal 2020-05-21 Completed University o f Polysaccharide, 00:00:00 [place] [facility] PPSV23 (PNEUMOVAX) Branch TDAP 2020-05-21 Completed University of 00:00:00 [facility] Pneumococcal 2020-05-21 Completed University o f Polysaccharide, 00:00:00 [place] [facility] PPSV23 (PNEUMOVAX) Branch TDAP 2020-05-21 Completed University of 00:00:00 [facility] Pneumococcal 2020-05-21 Completed University o f Polysaccharide, 00:00:00 [place] [facility] PPSV23 (PNEUMOVAX) Branch TDAP 2020-05-21 Completed University of 00:00:00 [facility] Pneumococcal 2020-05-21 Completed University o f Polysaccharide, 00:00:00 [place] [facility] PPSV23 (PNEUMOVAX) Branch TDAP 2020-05-21 Completed University of 00:00:00 [facility] Pneumococcal 2020-05-21 Completed University o f Polysaccharide, 00:00:00 [place] [facility] PPSV23 (PNEUMOVAX) Branch TDAP 2020-05-21 Completed University of 00:00:00 [facility] Pneumococcal 2020-05-21 Completed University o f Polysaccharide, 00:00:00 [place] [facility] PPSV23 (PNEUMOVAX) Branch TDAP 2020-05-21 Completed University of 00:00:00 [facility] Pneumococcal Vaccine, 2020-05-21 Completed Spencer sey Seybold - Polysaccharide 00:00:00 External Tdap- (Boostrix, 2020-05-21 Completed Andreea S eybold - Adacel) 00:00:00 External Pneumococcal Vaccine, 2020-05-21 Completed Spencer sey Seybold - Polysaccharide 00:00:00 External Tdap- (Boostrix, 2020-05-21 Completed Andreea S eybold - Adacel) 00:00:00 External Pneumococcal Vaccine, 2020-05-21 Completed Spencer sey Seybold - Polysaccharide 00:00:00 External Tdap- (Boostrix, 2020-05-21 Completed Andreea S eybold - Adacel) 00:00:00 External MMR 2013-07-25 Completed University of 00:00:00 [facility] MMR 2013-07-25 Completed University of 00:00:00 [facility] MMR 2013-07-25 Completed University of 00:00:00 [facility] MMR 2013-07-25 Completed University of 00:00:00 [facility] MMR 2013-07-25 Completed University of 00:00:00 [facility] MMR 2013-07-25 Completed University of 00:00:00 [facility] MMR 2013-07-25 Completed University of 00:00:00 [facility] MMR 2013-07-25 Completed University of 00:00:00 [facility] MMR 2013-07-25 Completed University of 00:00:00 [facility] MMR 2013-07-25 Completed University of 00:00:00 [facility] MMR 2013-07-25 Completed University of 00:00:00 [facility] MMR- Measles, Mumps, 2013-07-25 Completed Mildred ey Seybold - Rubella 00:00:00 External MMR- Measles, Mumps, 2013-07-25 Completed Mildred ey Seybold - Rubella 00:00:00 External MMR- Measles, Mumps, 2013-07-25 Completed Mildred ey Seybold - Rubella 00:00:00 External TDAP 2013-05-21 Completed University of 00:00:00 [facility] TDAP 2013-05-21 Completed University of 00:00:00 [facility] TDAP 2013-05-21 Completed University of 00:00:00 [facility] TDAP 2013-05-21 Completed University of 00:00:00 [place] [facility] TDAP 2013-05-21 Completed University of 00:00:00 [place] [facility] TDAP 2013-05-21 Completed University of 00:00:00 [place] [facility] TDAP 2013-05-21 Completed University of 00:00:00 [place] [facility] TDAP 2013-05-21 Completed University of 00:00:00 [place] [facility] TDAP 2013-05-21 Completed University of 00:00:00 [place] [facility] TDAP 2013-05-21 Completed University of 00:00:00 [place] [facility] TDAP 2013-05-21 Completed University of 00:00:00 [facility] Tdap- (Boostrix, 2013-05-21 Completed Andreea aceves - Adalorenza) 00:00:00 External Tdap- (Boostrix, 2013-05-21 Completed Andreea aceves - Adacel) 00:00:00 External Tdap- (Boostrix, 2013-05-21 Completed Andreea aceves - Adacel) 00:00:00 External Influenza Virus 2013-03-19 Completed Universit y of Vaccine 00:00:00 [facility] Influenza Virus 2013-03-19 Completed Universit y of Vaccine 00:00:00 [facility] Influenza Virus 2013-03-19 Completed Universit y of Vaccine 00:00:00 [facility] Influenza Virus 2013-03-19 Completed Universit y of Vaccine 00:00:00 [facility] Influenza Virus 2013-03-19 Completed Universit y of Vaccine 00:00:00 [facility] Influenza Virus 2013-03-19 Completed Universit y of Vaccine 00:00:00 [facility] Influenza Virus 2013-03-19 Completed Universit y of Vaccine 00:00:00 [facility] Influenza Virus 2013-03-19 Completed Universit y of Vaccine 00:00:00 [facility] Influenza Virus 2013-03-19 Completed Universit y of Vaccine 00:00:00 [facility] Influenza Virus 2013-03-19 Completed Universit y of Vaccine 00:00:00 [facility] Influenza Virus 2013-03-19 Completed Universit y of Vaccine 00:00:00 [facility] Influenza Virus 2013-03-19 Completed Andreea fermin - Vaccine, Unspecified 00:00:00 Exte rnal Formulation Influenza Virus 2013-03-19 Completed Andreea fermin - Vaccine, Unspecified 00:00:00 Exte rnal Formulation Influenza Virus 2013-03-19 Completed Andreea fermin - Vaccine, Unspecified 00:00:00 Exte rnal Formulation Rubella 2008-04-17 Completed University of 00:00:00 [facility] Rubella 2008-04-17 Completed University of 00:00:00 [facility] Rubella 2008-04-17 Completed University of 00:00:00 [facility] Rubella 2008-04-17 Completed University of 00:00:00 [facility] Rubella 2008-04-17 Completed University of 00:00:00 [facility] Rubella 2008-04-17 Completed University of 00:00:00 [facility] Rubella 2008-04-17 Completed University of 00:00:00 [facility] Rubella 2008-04-17 Completed University of 00:00:00 [facility] Rubella 2008-04-17 Completed University of 00:00:00 [facility] Rubella 2008-04-17 Completed University of 00:00:00 [facility] Rubella 2008-04-17 Completed University of 00:00:00 [facility] Rubella 2008-04-17 Completed Andreea Corona - 00:00:00 External Rubella 2008-04-17 Completed Andreea Corona - 00:00:00 External Rubella 2008-04-17 Completed Andreea Corona - 00:00:00 External TD, NOS 2004-07-11 Completed University of 00:00:00 [facility] TD, NOS 2004-07-11 Completed University of 00:00:00 [facility] Td 2004-07-11 Completed University of 00:00:00 [facility] Td 2004-07-11 Completed University of 00:00:00 [place] [facility] Td 2004-07-11 Completed University of 00:00:00 [place] [facility] Td 2004-07-11 Completed University of 00:00:00 [place] [facility] Td 2004-07-11 Completed University of 00:00:00 [place] [facility] Td 2004-07-11 Completed University of 00:00:00 [place] [facility] Td 2004-07-11 Completed University of 00:00:00 [facility] TD, NOS 2004-07-11 Completed University of 00:00:00 [facility] TD, NOS 2004-07-11 Completed University of 00:00:00 [facility] Tdap- (Boostrix, 2004-07-11 Completed Andreea Mota eybold - Adacel) 00:00:00 External Tdap- (Boostrix, 2004-07-11 Completed Andreea Mota eybold - Adacel) 00:00:00 External Tdap- (Boostrix, 2004-07-11 Completed Andreea Mota eybold - Adacel) 00:00:00 External Vital Signs Vital Name Observation Time Observation Value Comments Source Systolic blood 2023-01-12 12:08:00 108 mm[Hg] Univer sity of [facility] Diastolic blood 2023-01-12 12:08:00 66 mm[Hg] Unive rsity [facility] Heart rate 2023-01-12 12:08:00 68 /min [facility] Body temperature 2023-01-12 12:08:00 36 [facility] 2023-01-12 12:08:00 14 /min [facility] Oxygen saturation in 2023-01-12 12:08:00 96 /min [facility] Arterial blood by [facility] Pulse oximetry [place] Body weight 2023-01-12 08:58:00 105.96 kg [facility] BMI 2023-01-12 08:58:00 40.10 kg/m2 [facility] Body height 2023-01-10 16:47:00 162.6 cm [facility] Systolic blood 2022-12-21 19:08:00 115 mm[Hg] Andreea Godfreyybraegan - pressure External Diastolic blood 2022-12-21 19:08:00 77 mm[Hg] Vikram gray Seybold - pressure External Heart rate 2022-12-21 19:08:00 96 /min Andreea casillasbold - External Body temperature 2022-12-21 19:08:00 36.72 Lorenza Mildred ey Seybold - External Respiratory rate 2022-12-21 19:08:00 18 /min Mildred casillas Seybold - External Body height 2022-12-21 19:08:00 162.6 cm Andreea casillasborafael - External Body weight 2022-12-21 19:08:00 104.327 kg Andreea S eybold - External BMI 2022-12-21 19:08:00 39.48 kg/m2 Andreea S eybold - External Systolic blood 2022-12-17 19:52:00 120 mm[Hg] Andreea Godfreyybold - pressure External Diastolic blood 2022-12-17 19:52:00 81 mm[Hg] Vikram gray Seybold - pressure External Heart rate 2022-12-17 19:52:00 119 /min Andreea Mota eybold - External Body temperature 2022-12-17 19:52:00 36.89 Lorenza Mildred casillas Seybold - External Respiratory rate 2022-12-17 19:52:00 15 /min Mildred casillas Seybold - External Body height 2022-12-17 19:52:00 162.6 cm Andreea Mota eybold - External Body weight 2022-12-17 19:52:00 105.688 kg Andreea Mota eybold - External BMI 2022-12-17 19:52:00 39.99 kg/m2 Andreea casillasbold - External Oxygen saturation in 2022-12-17 19:52:00 99 /min Andreea Corona - Arterial blood by External Pulse oximetry Systolic blood 2022-11-03 15:00:00 103 mm[Hg] Univer sity of [facility] Diastolic blood 2022-11-03 15:00:00 72 mm[Hg] Unive rsity of [facility] Heart rate 2022-11-03 15:00:00 76 /min [facility] Oxygen saturation in 2022-11-03 15:00:00 96 /min [facility] Arterial blood by [facility] Pulse oximetry Branch Respiratory rate 2022-11-03 14:58:00 14 /min [facility] temperature 2022-11-03 13:25:00 37.22 Lorenza [facility] Body weight 2022-11-03 13:25:00 99.791 kg [facility] BMI 2022-11-03 13:25:00 37.76 kg/m2 [facility] Systolic blood 2022-10-01 20:47:00 110 mm[Hg] Andreea Godfreyybold - pressure External Diastolic blood 2022-10-01 20:47:00 75 mm[Hg] Vikram y Seybold - pressure External Heart rate 2022-10-01 20:47:00 104 /min Andreea Mota eybold - External Body temperature 2022-10-01 20:47:00 [...] saturation in 2022-10-01 20:47:00 99 /min Andreea Corona - Arterial blood [...] Heart rate 2022-09-07 20:49:00 119 /min Andreea Mota eybold - External Body temperature 2022-09-07 20:49:00 37.17 Lorenza Mildred ey Seybold - External Respiratory rate 2022-09-07 20:49:00 14 /min Mildred Corona - External Body height 2022-09-07 20:49:00 162.6 cm Andreea aceves - External Body weight 2022-09-07 20:49:00 109.317 kg Andreea aceves - External BMI 2022-09-07 20:49:00 41.37 kg/m2 Andreea aceves - External Oxygen saturation in 2022-09-07 20:49:00 96 /min Andreea Corona - Arterial blood by External Pulse oximetry Systolic blood 2022-08-30 14:00:00 112 mm[Hg] Univer sity of pressure [facility] Diastolic blood 2022-08-30 14:00:00 75 mm[Hg] Unive rsity of pressure [facility] Oxygen saturation in 2022-08-30 14:00:00 97 /min University of Arterial blood by [place] [facility] Pulse oximetry Branch Heart rate 2022-08-30 13:00:00 93 /min [facility]i [facility] [place] [facility] Body temperature 2022-08-30 13:00:00 35.83 Lorenza Univ ersity of [place] [facility] Respiratory rate 2022-08-30 13:00:00 15 /min Univ ersity of [place] [facility] Body weight 2022-08-29 12:00:00 112.492 kg [facility]i [facility] [place] [facility] BMI 2022-08-29 12:00:00 42.57 kg/m2 [facility] [place] [facility] Body height 2022-08-27 00:21:00 162.6 cm [facility]i [facility] [place] [facility] Systolic blood 2022-06-22 04:59:00 110 mm[Hg] Univer sity of pressure [facility] Diastolic blood 2022-06-22 04:59:00 70 mm[Hg] Unive rsity of pressure [facility] Heart rate 2022-06-22 04:59:00 107 /min [facility]i [facility] [place] [facility] Respiratory rate 2022-06-22 04:59:00 22 /min Univ ersity of [place] [facility] Oxygen saturation in 2022-06-22 04:59:00 97 /min University of Arterial blood by [place] Pulse oximetry Branch Body temperature 2022-06-21 23:26:00 37.28 Lorenza Univ ersity of [place] [facility] Body height 2022-06-21 23:26:00 162.6 cm Universi ty [facility] [place] [facility] Body weight 2022-06-21 23:26:00 98.431 kg Universi [facility] BMI 2022-06-21 23:26:00 37.25 kg/m2 [facility] Systolic blood 2021-10-17 02:05:00 117 mm[Hg] [facility] Diastolic blood 2021-10-17 02:05:00 63 mm[Hg] [facility]ive [facility] Heart rate 2021-10-17 02:05:00 76 /min [facility] Respiratory rate 2021-10-17 02:05:00 18 /min [facility] Oxygen saturation in 2021-10-17 02:05:00 98 /min [facility] by [place] [facility] Pulse oximetry [facility] Body temperature 2021-10-16 22:30:00 37.33 Lorenza [facility] Body weight 2021-10-16 21:38:00 103.42 kg [facility] BMI 2021-10-16 21:38:00 37.94 kg/m2 [facility] Systolic blood 2021-09-22 17:00:00 108 mm[Hg] [facility] Diastolic blood 2021-09-22 17:00:00 77 mm[Hg] [facility] Heart rate 2021-09-22 17:00:00 90 /min [facility] Oxygen saturation in 2021-09-22 17:00:00 97 /min [facility] blood [facility] [place] [facility] Respiratory rate 2021-09-22 [...] /min [facility] [place] [place] [facility] Body height 2021-06-18 [...] 98 /min [facility] [place] [facility] [place] [facility] P[facility] Body weight 2021-05-30 21:47:00 107.502 kg [facility] BMI 2021-05-30 21:47:00 40.68 kg/m2 [facility] BP Systolic 2022-06-18 10:43:00 118 [...] Time Performing Clinician Source Performed POCT GLUCOSE (AUTOMATED) 2023-01-12 12:34:00 Gudelia Garcia [facility] LIPASE 2023-01-12 10:11:00 Mary Morrison [facility] BASIC METABOLIC PANEL 2023-01-12 10:11:00 Mary Morrison [facility] (NA, K, CL, CO2, Medical Branch GLUCOSE, BUN, CREATININE, CA) CBC WITH DIFF 2023-01-12 10:11:00 Mary Morrison [facility] POCT GLUCOSE (AUTOMATED) 2023-01-12 02:34:00 Gudelia Garcia [facility] POCT GLUCOSE (AUTOMATED) 2023-01-11 21:20:00 Gudelia Garcia [facility] POCT GLUCOSE (AUTOMATED) 2023-01-11 16:26:00 Gudelia Garcia [facility] POCT GLUCOSE (AUTOMATED) 2023-01-11 12:42:00 Gudelia Garcia [facility] LIPID PANEL 2023-01-11 06:30:00 Gudelia Garcia [facility] ([id number])(TOTAL Medical Branch CHOLESTEROL, TRIGLYCERIDES, HDL) LOW-DENSITY LIPOPROTEIN, 2023-01-11 06:30:00 Gudelia Garcia [facility] DIRECT [facility] POCT GLUCOSE (AUTOMATED) 2023-01-11 02:07:00 Gudelia Garcia [facility] ADC CLC OR LCC ONLY - 2023-01-10 20:13:00 Deya Juarez [facility] WET PREP [facility] HSV 1 AND 2 GLYCOPROTEIN 2023-01-10 20:13:00 Judy Juarez [facility] G IGG [facility] US PELVIS COMPLETE WITH 2023-01-10 20:11:36 Howie Juarez [facility] TRANSVAGINAL [facility] GLYCOSYLATED HEMOGLOBIN 2023-01-10 17:35:00 Gudelia Garcia [facility] (A1C) [facility] CT ABDOMEN PELVIS W 2023-01-10 15:07:29 [facility] CONTRAST [facility] POCT TEST 2023-01-10 13:37:00 [facility] TRIGLYCERIDES 2023-01-10 13:29:00 Ngoc Tinajero [facility] LIPASE 2023-01-10 13:29:00 Lior Ngoc [facility] COMP. METABOLIC PANEL 2023-01-10 13:29:00 Ngoc Tinajero [facility] ([id number]) [facility] CBC WITH DIFF 2023-01-10 13:29:00 Lior [facility] ASSIGNMENT OF BENEFITS 2023-01-10 12:54:19 Doctor Unassigned, No [facility] Name [facility] URINALYSIS 2023-01-10 12:31:00 Ngoc Tinajero [facility] CONSENT/REFUSAL FOR 2023-01-10 12:22:34 Doctor Unassigned, No [facility]AT[facility] Name [facility] REAGENT STRIP/BLOOD 2022-12-21 00:00:00 Outside, Reported Andreea Corona - GLUCOSE External LIPASE 2022-11-03 13:37:00 [facility] HEPATIC FUNCTION PANEL 2022-11-03 13:37:00 [facility] ([id number]) (ALB,T.PRO,BILI [facility] T,BU/BC,ALT,AST,ALK PHOS) BASIC METABOLIC PANEL 2022-11-03 13:37:00 [facility] (NA, K, CL, CO2, Medical Branch GLUCOSE, BUN, CREATININE, CA) LIPID PANEL 2022-11-03 13:37:00 [facility] ([id number])(TOTAL [facility] CHOLESTEROL, TRIGLYCERIDES, HDL) CBC WITH DIFF 2022-11-03 13:37:00 [facility] URINALYSIS 2022-11-03 13:37:00 [facility] CONSENT/REFUSAL FOR 2022-11-03 13:22:43 Doctor Unassigned, No Un [facility] DIAGNOSIS AND TREATMENT Name [facility] REAGENT STRIP/BLOOD 2022-09-10 00:00:00 Outside, Reported Andreea Corona - GLUCOSE External POCT GLUCOSE (AUTOMATED) 2022-08-30 14:52:00 [facility]) 2022-08-30 13:01:00 Meri Wray Uni [facility] POCT GLUCOSE (AUTOMATED) 2022-08-30 12:03:00 Meri Wray Uni [facility] POCT GLUCOSE (AUTOMATED) 2022-08-30 11:04:00 Meri Wray [facility] TRIGLYCERIDES 2022-08-30 10:18:00 Kamala [facility] o f [facility] BASIC METABOLIC PANEL 2022-08-30 10:18:00 Meri Wray [facility] (NA, K, CL, CO2, Medical Branch GLUCOSE, BUN, CREATININE, CA) POCT GLUCOSE (AUTOMATED) 2022-08-30 10:11:00 Ovdean, Meri Uni versity of [facility] POCT GLUCOSE (AUTOMATED) 2022-08-30 09:10:00 Ovdean, Meri Uni versity of [facility] POCT GLUCOSE (AUTOMATED) 2022-08-30 08:08:00 Ovdean, Meri Uni versity of [facility] POCT GLUCOSE (AUTOMATED) 2022-08-30 07:15:00 Ovdean, Meri Uni versity of [facility] POCT GLUCOSE (AUTOMATED) 2022-08-30 06:28:00 Ovdean, Meri Uni versity of [facility] POCT GLUCOSE (AUTOMATED) 2022-08-30 05:04:00 Oville, Meri Uni versity of [facility] POCT GLUCOSE (AUTOMATED) 2022-08-30 04:11:00 Oville, Meri Uni versity of [facility] POCT GLUCOSE (AUTOMATED) 2022-08-30 03:03:00 Oville, Meri Uni versity of [facility] POCT GLUCOSE (AUTOMATED) 2022-08-30 02:21:00 Ovdean, Meri Uni versity of [facility] POCT GLUCOSE (AUTOMATED) 2022-08-30 01:02:00 Oville, Meri Uni versity of [facility] POCT GLUCOSE (AUTOMATED) 2022-08-30 00:03:00 Oville, Meri Uni versity of [facility] POCT GLUCOSE (AUTOMATED) 2022-08-29 23:00:00 Ovdean, Meri Uni versity of [facility] POCT GLUCOSE (AUTOMATED) 2022-08-29 22:04:00 Oville, Meri Uni versity of [facility] POCT GLUCOSE (AUTOMATED) 2022-08-29 21:11:00 Oville, Meri Uni versity of [facility] POTASSIUM SERUM 2022-08-29 20:33:00 Meri Wray [facility] TRIGLYCERIDES 2022-08-29 20:33:00 [facility] ([facility]OMATED) 2022-08-29 20:07:00 Meri Wray Uni versity [facility] POCT GLUCOSE (AUTOMATED) 2022-08-29 19:09:00 [facility] PO[facility] GLU[facility]SE (AUTOMATED) 2022-08-29 18:12:00 OvMeri moran Uni versity [facility] POCT GLUCOSE (AUTOMATED) 2022-08-29 17:08:00 OvMeri moran Uni versity [facility] POCT GLUCOSE (AUTOMATED) 2022-08-29 16:14:00 Meri Wray Uni versity [facility] POCT GLUCOSE (AUTOMATED) 2022-08-29 15:05:00 OvMeri moran [facility] PO[facility] GLUCOSE (AUTOMATED) 2022-08-29 14:08:00 OvMeri moran Uni versity [facility] POCT GLUCOSE (AUTOMATED) 2022-08-29 13:18:00 OvMeri moran Uni versity [facility] POCT GLUCOSE (AUTOMATED) 2022-08-29 12:06:00 Meri Wray Uni versity [facility] POCT GLUCOSE (AUTOMATED) 2022-08-29 10:56:00 Meri Wray [facility] TRIGLYCERIDES 2022-08-29 10:53:00 Meri Wray [facility] MAGNESIUM 2022-08-29 10:53:00 Pedro [facility] BASIC METABOLIC PANEL 2022-08-29 10:53:00 Meri Wray [facility] (NA, K, CL, CO2, Medical Branch GLUCOSE, BUN, CREATININE, CA) POCT GLUCOSE (AUTOMATED) 2022-08-29 09:59:00 Meri Wray Uni versity [facility] POCT GLUCOSE (AUTOMATED) 2022-08-29 09:07:00 Meri Wray Uni versity [facility] POCT GLUCOSE (AUTOMATED) 2022-08-29 07:55:00 Meri Wray Uni versity of [facility] POCT GLUCOSE (AUTOMATED) 2022-08-29 07:06:00 OvMeri moran Uni versity of [facility] POCT GLUCOSE (AUTOMATED) 2022-08-29 06:02:00 Meri Wray Uni versity of [facility] POCT GLUCOSE (AUTOMATED) 2022-08-29 05:09:00 Meri Wray Uni versity of [facility] POCT GLUCOSE (AUTOMATED) 2022-08-29 04:09:00 OvMeri moran Uni versity of [facility] POCT GLUCOSE (AUTOMATED) 2022-08-29 03:17:00 Meri Wray Uni versity of [facility] POCT GLUCOSE (AUTOMATED) 2022-08-29 02:11:00 Meri Wray Uni versity of [facility] POCT GLUCOSE (AUTOMATED) 2022-08-29 01:00:00 Meri Wray Uni versity of [facility] POCT GLUCOSE (AUTOMATED) 2022-08-29 00:13:00 OvMrei moran Uni versity of [facility] POCT GLUCOSE (AUTOMATED) 2022-08-28 23:13:00 Meri Wray Uni versity of [facility] POCT GLUCOSE (AUTOMATED) 2022-08-28 22:15:00 OvMeri moran Uni versity of [facility] POCT GLUCOSE (AUTOMATED) 2022-08-28 21:04:00 Meri Wray Uni versity of [facility] POCT GLUCOSE (AUTOMATED) 2022-08-28 20:03:00 OvMeri moran Uni versity of [facility] POCT GLUCOSE (AUTOMATED) 2022-08-28 19:06:00 Meri Wray Uni versity of [facility] TRIGLYCERIDES 2022-08-28 18:22:00 Meri Wray o f [facility] BASIC METABOLIC PANEL 2022-08-28 18:22:00 Meri Wray [facility] (NA, K, CL, CO2, Medical Branch GLUCOSE, BUN, CREATININE, CA) POCT GLUCOSE (AUTOMATED) 2022-08-28 18:13:00 Meri Wray Uni versity of [facility] POCT GLUCOSE (AUTOMATED) 2022-08-28 17:03:00 Ovdean, Meri Uni versity of [facility] POCT GLUCOSE (AUTOMATED) 2022-08-28 16:02:00 Paresh Wrayi Uni versity of [facility] POCT GLUCOSE (AUTOMATED) 2022-08-28 15:02:00 Ovdean, Meri Uni versity of [facility] POCT GLUCOSE (AUTOMATED) 2022-08-28 14:03:00 Ovdean, Meri Uni versity of [facility] POCT GLUCOSE (AUTOMATED) 2022-08-28 13:04:00 Ovdean, Meri Uni versity of [facility] POCT GLUCOSE (AUTOMATED) 2022-08-28 12:30:00 Meri Wray Uni versity of [facility] POCT GLUCOSE (AUTOMATED) 2022-08-28 11:32:00 Meri Wray Uni versity of [facility] POCT GLUCOSE (AUTOMATED) 2022-08-28 10:06:00 Paresh Wrayi Uni versity of [facility] TRIGLYCERIDES 2022-08-28 10:00:00 Kamala [facility] BASIC METABOLIC PANEL 2022-08-28 10:00:00 Meri Wray [facility] (NA, K, CL, CO2, Medical Branch GLUCOSE, BUN, CREATININE, CA) POCT GLUCOSE (AUTOMATED) 2022-08-28 08:59:00 Meri Wray Uni versity of [facility] POCT GLUCOSE (AUTOMATED) 2022-08-28 08:05:00 Paresh Wrayi Uni versity of [facility] POCT GLUCOSE (AUTOMATED) 2022-08-28 05:58:00 Paresh Wrayi Uni versity of [facility] POCT GLUCOSE (AUTOMATED) 2022-08-28 05:03:00 Paresh Wrayi Uni versity of [facility] POCT GLUCOSE (AUTOMATED) 2022-08-28 04:01:00 OvParesh morani Uni versity of [facility] POCT GLUCOSE (AUTOMATED) 2022-08-28 03:04:00 Meri Wray Uni versity [facility] POCT GLUCOSE (AUTOMATED) 2022-08-28 02:02:00 Ovdean Meri Uni versity of [facility] POCT GLUCOSE (AUTOMATED) 2022-08-28 01:01:00 Ovdean, Meri Uni versity of [facility] POCT GLUCOSE (AUTOMATED) 2022-08-28 00:02:00 Ovdean, Meri Uni versity of [facility] POCT GLUCOSE (AUTOMATED) 2022-08-27 23:34:00 OvMeri moran Uni versity [facility] POCT GLUCOSE (AUTOMATED) 2022-08-27 22:07:00 OvMeri moran [facility] BASIC METABOLIC PANEL 2022-08-27 21:28:00 Kamala [facility] (NA, K, CL, CO2, Medical Branch GLUCOSE, BUN, CREATININE, CA) POCT GLUCOSE (AUTOMATED) 2022-08-27 21:01:00 Meri Wray [facility] POCT GLUCOSE (AUTOMATED) 2022-08-27 20:17:00 OvMeri moran Uni versity [facility] POCT GLUCOSE (AUTOMATED) 2022-08-27 19:00:00 Meri Wray [facility] POCT GLUCOSE (AUTOMATED) 2022-08-27 18:02:00 Meri Wray Uni versity [facility] TRIGLYCERIDES 2022-08-27 17:17:00 Meri Wray [facility] BASIC METABOLIC PANEL 2022-08-27 17:17:00 [facility] (NA, K, CL, CO2, Medical Branch GLUCOSE, BUN, CREATININE, CA) POCT GLUCOSE (AUTOMATED) 2022-08-27 16:59:00 OvMeri moran Uni versity [facility] POCT GLUCOSE (AUTOMATED) 2022-08-27 16:12:00 OvTawanda moranlani Uni versity [facility] POCT GLUCOSE (AUTOMATED) 2022-08-27 15:13:00 OvMeri moran Uni versity [facility] POCT GLUCOSE (AUTOMATED) 2022-08-27 14:19:00 OvMeri moran Uni [facility] POCT GLUCOSE (AUTOMATED) 2022-08-27 13:23:00 OvMeri moran [facility] POCT GLUCOSE (AUTOMATED) 2022-08-27 12:05:00 Kamala Meri Uni [facility] POCT GLUCOSE (AUTOMATED) 2022-08-27 11:06:00 Meri Wray [facility] POCT GLUCOSE (AUTOMATED) 2022-08-27 10:14:00 OvMeri moran [facility] POCT GLUCOSE (AUTOMATED) 2022-08-27 09:04:00 OvMeri moran [facility] TRIGLYCERIDES 2022-08-27 08:14:00 Kamala [facility] BASIC METABOLIC PANEL 2022-08-27 08:14:00 Kamala [facility] (NA, K, CL, CO2, Medical Branch GLUCOSE, BUN, CREATININE, CA) POCT GLUCOSE (AUTOMATED) 2022-08-27 06:58:00 Meri Wray [facility] POCT GLUCOSE (AUTOMATED) 2022-08-27 06:11:00 [facility]ATED) 2022-08-27 05:11:00 Meri Wray [facility] POCT GLUCOSE (AUTOMATED) 2022-08-27 03:13:00 [facility] LIP[facility] 2022-08-27 02:32:00 Allen Rivera [facility] BASIC METABOLIC PANEL 2022-08-27 02:32:00 Kamala [facility] (NA, K, CL, CO2, Medical Branch GLUCOSE, BUN, CREATININE, CA) MRSA / MSSA SCREEN BY 2022-08-27 02:32:00 [facility] POCT GLUCOSE (AUTOMATED) 2022-08-27 02:00:00 [facility] PO[facility]SE (AUTOMATED) 2022-08-27 01:14:00 Meri Wray [facility] POCT GLUCOSE (AUTOMATED) 2022-08-27 00:14:00 Meri Wray [facility] POCT GLUCOSE (AUTOMATED) 2022-08-26 23:51:00 Meri Wray [facility] POCT GLUCOSE (AUTOMATED) 2022-08-26 23:06:00 Meri Wray [facility] KETONES URINE 2022-08-26 22:57:00 Robert Lutz [facility] URINALYSIS 2022-08-26 22:57:00 Robert Lutz [facility] POCT GLUCOSE (AUTOMATED) 2022-08-26 22:08:[address] [facility] ABG+COOX+NA+K+GLU+CA2+ 2022-08-26 21:16:00 Robert Lutz [facility] MAGNESIUM 2022-08-26 21:11:00 Robert Lutz [facility] OSMOLALITY, SERUM OR 2022-08-26 21:11:00 Robert Lutz [facility] PLASMA [facility] COMP. METABOLIC PANEL 2022-08-26 21:11:00 Robert Lutz [facility] ([id number]) [facility] LIPID PANEL 2022-08-26 21:11:00 Bolivar [facility] ([id number])(TOTAL [facility] [place] CHOLESTEROL, TRIGLYCERIDES, HDL) CBC WITH DIFF 2022-08-26 21:11:00 Robert Lutz [facility] LOW-DENSITY LIPOPROTEIN, 2022-08-26 21:11:00 Robert Lutz [facility] DIRECT [facility] HB ECG ROUTINE & RHYTHM 2022-08-26 20:34:00 Guido Rucker [facility] STRIP [facility] POCT GLUCOSE (AUTOMATED) 2022-08-26 20:33:00 Doctor Unassigned, No [facility] CONSENT/REFUSAL FOR 2022-08-26 20:18:28 Doctor Unassigned, No [facility] DIAGNOSIS AND TREATMENT [facility] POCT GLUCOSE (AUTOMATED) 2022-06-22 03:40:00 Katelyn Ivey [facility] BASIC METABOLIC PANEL 2022-06-22 02:40:00 Katelyn Ivey [facility] (NA, K, CL, CO2, Medical Branch GLUCOSE, BUN, CREATININE, CA) POCT GLUCOSE(AGE 2022-06-22 02:39:00 Katelyn Ivey [facility] >30DAYS) Medical Branch POCT GLUCOSE (AUTOMATED) 2022-06-22 02:38:00 Katelyn Ivey [facility] VBG+VCOOX+NA+K+GLU+CA2+ 2022-06-22 02:08:00 Katelyn Ivey [facility] POCT GLUCOSE (AUTOMATED) 2022-06-22 01:41:00 Katelyn Ivey [facility] XR CHEST 2 VW 2022-06-22 00:47:37 Katelyn Ivey [facility] PHOSPHORUS 2022-06-21 23:49:00 Katelyn Ivey [facility] MAGNESIUM 2022-06-21 23:49:00 Katelyn Ivey [facility] TROPONIN I 2022-06-21 23:49:00 [facility] BASIC METABOLIC PANEL 2022-06-21 23:49:00 Katelyn Ivey [facility] (NA, K, CL, CO2, Medical Branch GLUCOSE, BUN, CREATININE, CA) CBC WITH DIFF 2022-06-21 23:49:00 Katelyn Ivey [facility] GLYCOSYLATED HEMOGLOBIN 2022-06-21 23:49:00 Katelyn Ivey [facility] (A1C) [facility] URINALYSIS 2022-06-21 23:49:00 [facility] RAPID STREP SCREEN FOR 2022-06-21 23:49:00 Katelyn Ivey [facility] GROUP A Medical Branch RAPID INFLUENZA A/B 2022-06-21 23:49:00 [facility] N-TERMINAL PRO-BNP 2022-06-21 23:49:00 Katelyn Ivey [facility] COVID-19 (ID NOW RAPID 2022-06-21 23:49:00 K[facility]n [facility] TESTING) [facility] CONSENT/REFUSAL FOR 2022-06-21 23:19:40 Doctor Unassigned, No [facility] Name [facility] POCT GLUCOSE (AUTOMATED) 2021-10-17 01:49:00 Beatriz Eduardo [facility] PO[facility] GLUCOSE(AGE 2021-10-17 00:41:00 Beatriz Eduardo [facility] >30DAYS) [facility] POCT GLUCOSE (AUTOMATED) 2021-10-17 00:40:00 Beatriz Eduardo [facility] BLOOD CULTURE SCREEN 2021-10-16 23:26:00 Beatriz Eduardo [facility] BLOOD CULTURE SCREEN 2021-10-16 23:03:00 Beatriz Eduardo [facility] TROPONIN I 2021-10-16 23:03:00 Beatriz Eduardo [facility] COMP. METABOLIC PANEL 2021-10-16 23:03:00 Beatriz Eduardo [facility] ([id number]) [facility] CBC WITH DIFF 2021-10-16 23:03:00 Beatriz Eduardo [facility] URINALYSIS 2021-10-16 23:03:00 Beatriz Eduardo [facility] N-TERMINAL PRO-BNP 2021-10-16 23:03:00 Beatriz Eduardo [facility] LACTIC ACID WHOLE BLOOD 2021-10-16 23:01:00 Beatriz Eduardo Uni [facility] CT ABDOMEN PELVIS WO 2021-10-16 22:40:13 Beatriz Eduardo [facility] CONTRAST [facility] POCT TEST 2021-10-16 22:34:00 Beatriz Eduardo [facility] CONSENT/REFUSAL FOR 2021-10-16 21:34:04 Doctor Unassigned, No [facility]REATMENT Name [facility] CT ABDOMEN PELVIS WO 2021-09-22 15:59:44 Milelr, Jn [facility] POCT TEST 2021-09-22 15:18:00 Jn Miller [facility] COMP. METABOLIC PANEL 2021-09-22 15:16:00 Jn Miller [facility] ([id number]) Medical Branch CBC WITH DIFF 2021-09-22 15:16:00 Singer [facility] URINALYSIS 2021-09-22 14:58:00 Singer [facility] CONSENT/REFUSAL FOR 2021-09-22 14:47:03 Doctor Unassigned, [facility]ATMENT Name [facility] POCT GLUCOSE (AUTOMATED) 2021-06-18 13:04:[address] [facility] CT ABDOMEN PELVIS WO 2021-06-18 12:58:31 Fozia Jang [facility] POCT TEST 2021-06-18 11:06:00 Fozia Jang [facility] CREATINE KINASE 2021-06-18 10:50:00 Lionel Park [facility] COMP. METABOLIC PANEL 2021-06-18 10:50:00 Fozia Jang [facility] ([id number]) [facility] CBC WITH DIFF 2021-06-18 10:50:00 Fozia Jang [facility] URINALYSIS 2021-06-18 10:50:00 Fozia Jang [facility] RAPID INFLUENZA A/B 2021-06-18 10:50:00 Fozia Jang [facility] COVID-19 (ID NOW RAPID 2021-06-18 10:50:00 Fozia Jang [facility] TESTING) Medical Branch NOTICE OF PRIVACY 2021-06-18 10:24:00 Doctor Unassigned, No [facility] PRACTICES Name [facility] CONSENT/REFUSAL FOR 2021-06-18 10:21:45 Doctor Unassigned, [facility]REATMENT Name [facility] CT ABDOMEN PELVIS W 2021-05-30 23:52:[address] [facility] ty [facility] CONTRAST [facility] CT HEAD WO CONTRAST 2021-05-30 23:52:[address] [facility] ty [facility] XR CHEST 1 VW 2021-05-30 22:38:06 Mary Jay [place] o f [facility] XR HAND 3+ VW LEFT 2021-05-30 22:38:06 Mary Jay [facility] y of [facility] XR FOREARM 2 VW LEFT 2021-05-30 22:28:08 [facility] CONSENT/REFUSAL FOR 2021-05-30 21:39:04 Doctor Unassigned, No Un [facility] DIAGNOSIS AND TREATMENT Name Medical Branch [id number] Ecg Routine Ecg 2015-12-20 00:00:00 W/least 12 Lds W/i r 83.71 2010-08-05 00:00:00 [facility] 77.98 2010-08-05 00:00:00 [facility] Plan of Care Planned Activity Planned Date Details Comments Source Goal Plan of Care Note [code = 84298-9] Goal Plan of Care Note [code = 19822-4] Goal Plan of Care Note [code = 92761-8] Goal Plan of Care Note [code = 17245-9] Goal Plan of Care Note [code = 73494-7] Goal Plan of Care Note [code = 61046-9] Goal Plan of Care Note [code = 71416-8] Goal Plan of Care Note [code = 24795-6] Goal Plan of Care Note [code = 65113-3] Goal Plan of Care Note [code = 11404-0] Goal Plan of Care Note [code = 24482-7] Goal Plan of Care Note [code = 91016-6] Goal Plan of Care Note [code = 09083-1] Goal Plan of Care Note [code = 25434-9] Goal Plan of Care Note [code = 17914-7] Goal Plan of Care Note [code = 36607-8] Goal Plan of Care Note [code = 29529-5] Goal Plan of Care Note [code = 87523-4] Goal Plan of Care Note [code = 34896-1] Goal Plan of Care Note [code = 23280-9] Goal Plan of Care Note [code = 98016-4] Goal Plan of Care Note [code = 31180-5] Goal Plan of Care Note [code = 60971-7] Goal Plan of Care Note [code = 34369-6] Goal Plan of Care Note [code = 48119-0] Goal Plan of Care Note [code = 03850-5] Goal Plan of Care Note [code = 17066-1] Goal Plan of Care Note [code = 27018-8] Goal Plan of Care Note [code = 28679-8] Goal Plan of Care Note [code = 37802-6] Goal Plan of Care Note [code = 79649-9] Goal Plan of Care Note [code = 70017-4] Goal Plan of Care Note [code = 42781-3] Goal Plan of Care Note [code = 33932-6] Goal Plan of Care Note [code = 72042-7] Goal Plan of Care Note [code = 32898-4] Goal Plan of Care Note [code = 17181-9] Goal Plan of Care Note [code = 73933-3] Goal Plan of Care Note [code = 28165-4] Goal Plan of Care Note [code = 83055-5] Goal Plan of Care Note [code = 95947-9] Goal Plan of Care Note [code = 11536-4] Goal Plan of Care Note [code = 62532-5] Goal Plan of Care Note [code = 92230-6] Goal Plan of Care Note [code = 79499-4] Goal Plan of Care Note [code = 84669-1] Goal Plan of Care Note [code = 01367-3] Goal Plan of Care Note [code = 99150-4] Goal Plan of Care Note [code = 33296-2] Goal Plan of Care Note [code = 32689-0] Goal Plan of Care Note [code = 71263-1] Goal Plan of Care Note [code = 52155-0] Goal Plan of Care Note [code = 25218-2] Goal Plan of Care Note [code = 54071-2] Goal Plan of Care Note [code = 00452-4] Goal Plan of Care Note [code = 92431-0] Goal Plan of Care Note [code = 62623-1] Goal Plan of Care Note [code = 73149-3] Goal Plan of Care Note [code = 79893-7] Goal Plan of Care Note [code = 94187-5] Goal Plan of Care Note [code = 41696-9] Goal Plan of Care Note [code = 25850-9] Goal Plan of Care Note [code = 73540-0] Goal Plan of Care Note [code = 26441-2] Goal Plan of Care Note [code = 43208-8] Goal Plan of Care Note [code = 72430-5] Goal Plan of Care Note [code = 56778-4] Goal Plan of Care Note [code = 11107-7] Goal Plan of Care Note [code = 50022-8] Goal Plan of Care Note [code = 01752-7] Goal Plan of Care Note [code = 31287-9] Goal Plan of Care Note [code = 12782-7] Goal Plan of Care Note [code = 14284-9] Goal Plan of Care Note [code = 51538-5] Goal Plan of Care Note [code = 94438-7] Goal Plan of Care Note [code = 90876-8] Goal Plan of Care Note [code = 49874-1] Goal Plan of Care Note [code = 50594-2] Goal Plan of Care Note [code = 73560-9] Goal Plan of Care Note [code = 35686-0] Goal Plan of Care Note [code = 11855-0] Goal Plan of Care Note [code = 39542-2] Goal Plan of Care Note [code = 52152-4] Goal Plan of Care Note [code = 87229-7] Goal Plan of Care Note [code = 95524-4] Goal Plan of Care Note [code = 24982-6] Goal Plan of Care Note [code = 66119-0] Goal Plan of Care Note [code = 34711-1] Goal Plan of Care Note [code = 46632-5] Goal Plan of Care Note [code = 44411-8] Goal Plan of Care Note [code = 38293-9] Goal Plan of Care Note [code = 94117-2] Goal Plan of Care Note [code = 05789-0] Goal Plan of Care Note [code = 52296-7] Goal Plan of Care Note [code = 91518-4] Goal Plan of Care Note [code = 44786-4] Goal Plan of Care Note [code = 86877-4] Goal Plan of Care Note [code = 72466-2] Goal Plan of Care Note [code = 25765-5] Goal Plan of Care Note [code = 67169-8] Goal Plan of Care Note [code = 09119-2] Goal Plan of Care Note [code = 98664-8] Goal Plan of Care Note [code = 42933-9] Goal Plan of Care Note [code = 17876-3] Goal Plan of Care Note [code = 63748-8] Goal Plan of Care Note [code = 22898-1] Goal Plan of Care Note [code = 92137-1] Goal Plan of Care Note [code = 04577-3] Goal Plan of Care Note [code = 44506-6] Goal Plan of Care Note [code = 49807-1] Goal Plan of Care Note [code = 66577-0] Goal Plan of Care Note [code = 18174-2] Goal Plan of Care Note [code = 94977-6] Goal Plan of Care Note [code = 48811-8] Goal Plan of Care Note [code = 94102-5] Goal Plan of Care Note [code = 18637-5] Goal Plan of Care Note [code = 28284-7] Goal Plan of Care Note [code = 41364-1] Goal Plan of Care Note [code = 31292-2] Goal Plan of Care Note [code = 15801-5] Goal Plan of Care Note [code = 57676-6] Goal Plan of Care Note [code = 76809-4] Goal Plan of Care Note [code = 65842-5] Goal Plan of Care Note [code = 01788-1] Goal Plan of Care Note [code = 66344-6] Goal Plan of Care Note [code = 34347-1] Goal Plan of Care Note [code = 24411-2] Goal Plan of Care Note [code = 06319-9] Goal Plan of Care Note [code = 36500-8] Goal Plan of Care Note [code = 31941-4] Goal Plan of Care Note [code = 28053-2] Goal Plan of Care Note [code = 89090-3] Goal Plan of Care Note [code = 21243-7] Goal Plan of Care Note [code = 62930-1] Goal Plan of Care Note [code = 42181-2] Goal Plan of Care Note [code = 55970-0] Goal Plan of Care Note [code = 52663-4] Goal Plan of Care Note [code = 92979-7] Goal Plan of Care Note [code = 30882-1] Goal Plan of Care Note [code = 68368-8] Goal Plan of Care Note [code = 29116-0] Goal Plan of Care Note [code = 85929-4] Goal Plan of Care Note [code = 80996-1] Goal Plan of Care Note [code = 44876-3] Goal Plan of Care Note [code = 72142-6] Goal Plan of Care Note [code = 06361-2] Goal Plan of Care Note [code = 55667-9] Goal Plan of Care Note [code = 81623-4] Goal Plan of Care Note [code = 90191-0] Goal Plan of Care Note [code = 34280-5] Goal Plan of Care Note [code = 91064-2] Goal Plan of Care Note [code = 60536-4] Goal Plan of Care Note [code = 16970-4] Goal Plan of Care Note [code = 54919-6] Goal Plan of Care Note [code = 02437-6] Goal Plan of Care Note [code = 90193-1] Goal Plan of Care Note [code = 96508-9] Goal Plan of Care Note [code = 45974-5] Goal Plan of Care Note [code = 91969-3] Goal Plan of Care Note [code = 39688-3] Goal Plan of Care Note [code = 30660-2] Goal Plan of Care Note [code = 24841-1] Goal Plan of Care Note [code = 43997-8] Goal Plan of Care Note [code = 30150-4] Goal Plan of Care Note [code = 86420-2] Goal Plan of Care Note [code = 38352-8] Goal Plan of Care Note [code = 46384-0] Goal Plan of Care Note [code = 41114-4] Goal Plan of Care Note [code = 31834-8] Goal Plan of Care Note [code = 32637-0] Goal Plan of Care Note [code = 63000-5] Goal Plan of Care Note [code = 31949-9] Goal Plan of Care Note [code = 82651-2] Goal Plan of Care Note [code = 34830-9] Goal Plan of Care Note [code = 71048-1] Goal Plan of Care Note [code = 22952-7] Goal Plan of Care Note [code = 50920-5] Goal Plan of Care Note [code = 00552-2] Goal Plan of Care Note [code = 03537-5] Goal Plan of Care Note [code = 96343-6] Goal Plan of Care Note [code = 58664-8] Goal Plan of Care Note [code = 01196-0] Goal Plan of Care Note [code = 62261-9] Goal Plan of Care Note [code = 61426-1] Goal Plan of Care Note [code = 41831-2] Goal Plan of Care Note [code = 09348-2] Goal Plan of Care Note [code = 42158-7] Goal Plan of Care Note [code = 57706-3] Goal Plan of Care Note [code = 50923-1] Goal Plan of Care Note [code = 01801-9] Goal Plan of Care Note [code = 29433-6] Goal Plan of Care Note [code = 03991-6] Goal Plan of Care Note [code = 69298-0] Goal Plan of Care Note [code = 47349-7] Goal Plan of Care Note [code = 05414-4] Goal Plan of Care Note [code = 54895-8] Goal Plan of Care Note [code = 51705-1] Goal Plan of Care Note [code = 26079-5] Goal Plan of Care Note [code = 80748-0] Goal Plan of Care Note [code = 87871-6] Goal Plan of Care Note [code = 65100-2] Goal Plan of Care Note [code = 13450-4] Goal Plan of Care Note [code = 44985-5] Goal Plan of Care Note [code = 17483-7] Goal Plan of Care Note [code = 30508-8] Goal Plan of Care Note [code = 24593-6] Goal Plan of Care Note [code = 80490-7] Goal Plan of Care Note [code = 98769-8] Goal Plan of Care Note [code = 33317-7] Goal Plan of Care Note [code = 99396-5] Goal Plan of Care Note [code = 02427-9] Goal Plan of Care Note [code = 53866-6] Goal Plan of Care Note [code = 35005-8] Goal Plan of Care Note [code = 44706-3] Goal Plan of Care Note [code = 99302-9] Goal Plan of Care Note [code = 40918-5] Goal Plan of Care Note [code = 84286-1] Goal Plan of Care Note [code = 11337-8] Goal Plan of Care Note [code = 97542-0] Goal Plan of Care Note [code = 20397-3] Goal Plan of Care Note [code = 69759-6] Goal Plan of Care Note [code = 38520-0] Goal Plan of Care Note [code = 18005-0] Goal Plan of Care Note [code = 65161-8] Goal Plan of Care Note [code = 12271-5] Goal Plan of Care Note [code = 92203-1] Goal Plan of Care Note [code = 09272-5] Goal Plan of Care Note [code = 19483-3] Goal Plan of Care Note [code = 78356-6] Goal Plan of Care Note [code = 57458-8] Goal Plan of Care Note [code = 37357-3] Goal Plan of Care Note [code = 41412-1] Goal Plan of Care Note [code = 53532-5] Goal Plan of Care Note [code = 01199-3] Goal Plan of Care Note [code = 27435-4] Goal Plan of Care Note [code = 68445-1] Goal Plan of Care Note [code = 93821-6] Goal Plan of Care Note [code = 23806-4] Goal Plan of Care Note [code = 88723-1] Goal Plan of Care Note [code = 07572-5] Goal Plan of Care Note [code = 29171-8] Goal Plan of Care Note [code = 97739-8] Goal Plan of Care Note [code = 97005-4] Goal Plan of Care Note [code = 99287-3] Goal Plan of Care Note [code = 42807-8] Goal Plan of Care Note [code = 11005-6] Goal Plan of Care Note [code = 44355-7] Goal Plan of Care Note [code = 43879-8] Goal Plan of Care Note [code = 32881-6] Goal Plan of Care Note [code = 62323-2] Goal Plan of Care Note [code = 63364-0] Goal Plan of Care Note [code = 89464-4] Goal Plan of Care Note [code = 14296-8] Goal Plan of Care Note [code = 45154-1] Goal Plan of Care Note [code = 67686-8] Goal Plan of Care Note [code = 69806-8] Goal Plan of Care Note [code = 37028-3] Goal Plan of Care Note [code = 73169-6] Goal Plan of Care Note [code = 78767-9] Goal Plan of Care Note [code = 64147-1] Goal Plan of Care Note [code = 85236-1] Goal Plan of Care Note [code = 46217-9] Goal Plan of Care Note [code = 43206-5] Goal Plan of Care Note [code = 57758-8] Goal Plan of Care Note [code = 42881-6] Goal Plan of Care Note [code = 58499-7] Goal Plan of Care Note [code = 26162-3] Goal Plan of Care Note [code = 00137-8] Goal Plan of Care Note [code = 44403-4] Goal Plan of Care Note [code = 67277-5] Goal Plan of Care Note [code = 69670-0] Goal Plan of Care Note [code = 00228-0] Goal Plan of Care Note [code = 84442-3] Goal Plan of Care Note [code = 10049-7] Goal Plan of Care Note [code = 74767-6] Goal Plan of Care Note [code = 66361-1] Goal Plan of Care Note [code = 94587-4] Goal Plan of Care Note [code = 38340-8] Goal Plan of Care Note [code = 76654-8] Goal Plan of Care Note [code = 54861-8] Goal Plan of Care Note [code = 98553-0] Goal Plan of Care Note [code = 86811-4] Goal Plan of Care Note [code = 09730-6] Goal Plan of Care Note [code = 01717-6] Goal Plan of Care Note [code = 60195-5] Goal Plan of Care Note [code = 69571-0] Goal Plan of Care Note [code = 15795-0] Goal Plan of Care Note [code = 41587-6] Goal Plan of Care Note [code = 59570-1] Goal Plan of Care Note [code = 21380-3] Goal Plan of Care Note [code = 74204-4] Goal Plan of Care Note [code = 52228-6] Goal Plan of Care Note [code = 59596-4] Goal Plan of Care Note [code = 02918-2] Goal Plan of Care Note [code = 68699-5] Goal Plan of Care Note [code = 58995-0] Goal Plan of Care Note [code = 84472-1] Goal Plan of Care Note [code = 43070-0] Goal Plan of Care Note [code = 84122-8] Goal Plan of Care Note [code = 01939-6] Goal Plan of Care Note [code = 29344-8] Goal Plan of Care Note [code = 35300-1] Goal Plan of Care Note [code = 28310-5] Goal Plan of Care Note [code = 48449-8] Goal Plan of Care Note [code = 71212-8] Goal Plan of Care Note [code = 81181-5] Goal Plan of Care Note [code = 89423-2] Goal Plan of Care Note [code = 36019-2] Goal Plan of Care Note [code = 39044-4] Goal Plan of Care Note [code = 76798-1] Goal Plan of Care Note [code = 58120-6] Goal Plan of Care Note [code = 93046-4] Goal Plan of Care Note [code = 25338-0] Goal Plan of Care Note [code = 95094-7] Goal Plan of Care Note [code = 47488-9] Goal Plan of Care Note [code = 48402-1] Goal Plan of Care Note [code = 80199-5] Goal Plan of Care Note [code = 22472-9] Goal Plan of Care Note [code = 67625-3] Goal Plan of Care Note [code = 88108-6] Goal Plan of Care Note [code = 28191-9] Goal Plan of Care Note [code = 39679-8] Goal Plan of Care Note [code = 95315-3] Goal Plan of Care Note [code = 50982-2] Goal Plan of Care Note [code = 60126-4] Goal Plan of Care Note [code = 45317-1] Goal Plan of Care Note [code = 70851-0] Goal Plan of Care Note [code = 45408-7] Goal Plan of Care Note [code = 03665-7] Goal Plan of Care Note [code = 64538-5] Goal Plan of Care Note [code = 18418-4] Goal Plan of Care Note [code = 38445-4] Goal Plan of Care Note [code = 60603-6] Goal Plan of Care Note [code = 37556-3] Goal Plan of Care Note [code = 51904-1] Goal Plan of Care Note [code = 32922-1] Goal Plan of Care Note [code = 90752-8] Goal Plan of Care Note [code = 35432-0] Goal Plan of Care Note [code = 53859-3] Goal Plan of Care Note [code = 40417-6] Goal Plan of Care Note [code = 94599-1] Goal Plan of Care Note [code = 11411-4] Goal Plan of Care Note [code = 94592-3] Goal Plan of Care Note [code = 82790-9] Goal Plan of Care Note [code = 73522-2] Goal Plan of Care Note [code = 43979-0] Goal Plan of Care Note [code = 02667-0] Goal Plan of Care Note [code = 55411-8] Goal Plan of Care Note [code = 12532-4] Goal Plan of Care Note [code = 37311-4] Goal Plan of Care Note [code = 19281-7] Goal Plan of Care Note [code = 51821-3] Goal Plan of Care Note [code = 83090-3] Goal Plan of Care Note [code = 27807-0] Goal Plan of Care Note [code = 63615-7] Goal Plan of Care Note [code = 35576-2] Goal Plan of Care Note [code = 75694-5] Goal Plan of Care Note [code = 49482-4] Goal Plan of Care Note [code = 54756-7] Goal Plan of Care Note [code = 72481-7] Goal Plan of Care Note [code = 02812-5] Goal Plan of Care Note [code = 97243-6] Goal Plan of Care Note [code = 64944-1] Goal Plan of Care Note [code = 24101-2] Goal Plan of Care Note [code = 54242-3] Goal Plan of Care Note [code = 18210-4] Goal Plan of Care Note [code = 63801-3] Goal Plan of Care Note [code = 38762-2] Goal Plan of Care Note [code = 46503-0] Goal Plan of Care Note [code = 08992-9] Goal Plan of Care Note [code = 96897-5] Goal Plan of Care Note [code = 48111-9] Goal Plan of Care Note [code = 94752-6] Goal Plan of Care Note [code = 89564-0] Goal Plan of Care Note [code = 20299-4] Goal Plan of Care Note [code = 11463-2] Goal Plan of Care Note [code = 92189-3] Goal Plan of Care Note [code = 21029-2] Goal Plan of Care Note [code = 53361-9] Goal Plan of Care Note [code = 01224-2] Goal Plan of Care Note [code = 22235-1] Goal Plan of Care Note [code = 27944-2] Goal Plan of Care Note [code = 11859-5] Goal Plan of Care Note [code = 37013-0] Goal Plan of Care Note [code = 39465-0] Goal Plan of Care Note [code = 83240-7] Goal Plan of Care Note [code = 37675-6] Goal Plan of Care Note [code = 39024-4] Goal Plan of Care Note [code = 98431-6] Goal Plan of Care Note [code = 35526-7] Goal Plan of Care Note [code = 17468-0] Goal Plan of Care Note [code = 05461-1] Goal Plan of Care Note [code = 13759-1] Goal Plan of Care Note [code = 34815-6] Goal Plan of Care Note [code = 07949-3] Goal Plan of Care Note [code = 84396-0] Goal Plan of Care Note [code = 03386-9] Goal Plan of Care Note [code = 89890-7] Goal Plan of Care Note [code = 33693-9] Goal Plan of Care Note [code = 46132-0] Goal Plan of Care Note [code = 98667-9] Goal Plan of Care Note [code = 41914-0] Goal Plan of Care Note [code = 71544-2] Goal Plan of Care Note [code = 59155-7] Goal Plan of Care Note [code = 02052-9] Goal Plan of Care Note [code = 18079-0] Goal Plan of Care Note [code = 03168-3] Goal Plan of Care Note [code = 17421-7] Goal Plan of Care Note [code = 53635-7] Goal Plan of Care Note [code = 81062-9] Goal Plan of Care Note [code = 69759-4] Goal Plan of Care Note [code = 09435-1] Goal Plan of Care Note [code = 68932-0] Goal Plan of Care Note [code = 71781-5] Goal Plan of Care Note [code = 01504-5] Goal Plan of Care Note [code = 85099-6] Goal Plan of Care Note [code = 86552-5] Goal Plan of Care Note [code = 70937-7] Goal Plan of Care Note [code = 95527-9] Goal Plan of Care Note [code = 82632-8] Goal Plan of Care Note [code = 11071-1] Goal Plan of Care Note [code = 37786-7] Goal Plan of Care Note [code = 68378-3] Goal Plan of Care Note [code = 84892-0] Goal Plan of Care Note [code = 77176-2] Goal Plan of Care Note [code = 30262-4] Goal Plan of Care Note [code = 06349-2] Goal Plan of Care Note [code = 26943-2] Goal Plan of Care Note [code = 60129-3] Goal Plan of Care Note [code = 20112-6] Goal Plan of Care Note [code = 05173-6] Goal Plan of Care Note [code = 84330-7] Goal Plan of Care Note [code = 25887-8] Goal Plan of Care Note [code = 79998-1] Goal Plan of Care Note [code = 75764-7] Goal Plan of Care Note [code = 92151-6] Goal Plan of Care Note [code = 30388-3] Goal Plan of Care Note [code = 48669-0] Goal Plan of Care Note [code = 97725-8] Goal Plan of Care Note [code = 68522-9] Goal Plan of Care Note [code = 27737-5] Goal Plan of Care Note [code = 49926-5] Goal Plan of Care Note [code = 12812-5] Goal Plan of Care Note [code = 82916-1] Goal Plan of Care Note [code = 88324-6] Goal Plan of Care Note [code = 26254-6] Goal Plan of Care Note [code = 56694-2] Goal Plan of Care Note [code = 09196-8] Goal Plan of Care Note [code = 42616-5] Goal Plan of Care Note [code = 11060-4] Goal Plan of Care Note [code = 19612-4] Goal Plan of Care Note [code = 99534-6] Goal Plan of Care Note [code = 09716-0] Goal Plan of Care Note [code = 01903-0] Goal Plan of Care Note [code = 71287-2] Goal Plan of Care Note [code = 60575-1] Goal Plan of Care Note [code = 94846-9] Goal Plan of Care Note [code = 05236-3] Goal Plan of Care Note [code = 99003-5] Goal Plan of Care Note [code = 03660-3] Goal Plan of Care Note [code = 80771-4] Goal Plan of Care Note [code = 07069-5] Goal Plan of Care Note [code = 12411-8] Goal Plan of Care Note [code = 23450-4] Goal Plan of Care Note [code = 04670-5] Goal Plan of Care Note [code = 45859-2] Goal Plan of Care Note [code = 26080-7] Goal Plan of Care Note [code = 25461-4] Goal Plan of Care Note [code = 44023-3] Goal Plan of Care Note [code = 18694-2] Goal Plan of Care Note [code = 42121-0] Goal Plan of Care Note [code = 84411-2] Goal Plan of Care Note [code = 18278-7] Goal Plan of Care Note [code = 95660-2] Goal Plan of Care Note [code = 63409-1] Goal Plan of Care Note [code = 22421-1] Goal Plan of Care Note [code = 76175-9] Goal Plan of Care Note [code = 89445-6] Goal Plan of Care Note [code = 42802-1] Goal Plan of Care Note [code = 31776-6] Goal Plan of Care Note [code = 44189-9] Goal Plan of Care Note [code = 68639-9] Goal Plan of Care Note [code = 14375-2] Goal Plan of Care Note [code = 14613-2] Goal Plan of Care Note [code = 90984-9] Goal Plan of Care Note [code = 03033-3] Goal Plan of Care Note [code = 94179-8] Goal Plan of Care Note [code = 63695-0] Goal Plan of Care Note [code = 82972-1] Goal Plan of Care Note [code = 01989-5] Goal Plan of Care Note [code = 14031-6] Goal Plan of Care Note [code = 47509-5] Goal Plan of Care Note [code = 56413-9] Goal Plan of Care Note [code = 07200-9] Goal Plan of Care Note [code = 68159-7] Goal Plan of Care Note [code = 10888-4] Goal Plan of Care Note [code = 87740-1] Goal Plan of Care Note [code = 54726-3] Goal Plan of Care Note [code = 04314-3] Goal Plan of Care Note [code = 93278-2] Goal Plan of Care Note [code = 59833-2] Goal Plan of Care Note [code = 11691-2] Goal Plan of Care Note [code = 19382-8] Goal Plan of Care Note [code = 72363-5] Goal Plan of Care Note [code = 68653-0] Goal Plan of Care Note [code = 09910-4] Goal Plan of Care Note [code = 87055-6] Goal Plan of Care Note [code = 06908-7] Goal Plan of Care Note [code = 98077-5] Goal Plan of Care Note [code = 95835-0] Goal Plan of Care Note [code = 96930-4] Goal Plan of Care Note [code = 68052-9] Goal Plan of Care Note [code = 67996-0] Goal Plan of Care Note [code = 62661-9] Goal Plan of Care Note [code = 57600-8] Goal Plan of Care Note [code = 03354-5] Goal Plan of Care Note [code = 35116-4] Goal Plan of Care Note [code = 59819-4] Goal Plan of Care Note [code = 83119-7] Goal Plan of Care Note [code = 64884-7] Goal Plan of Care Note [code = 01614-7] Goal Plan of Care Note [code = 13912-0] Goal Plan of Care Note [code = 82717-6] Goal Plan of Care Note [code = 38919-7] Goal Plan of Care Note [code = 58535-6] Goal Plan of Care Note [code = 84518-0] Goal Plan of Care Note [code = 85514-7] Goal Plan of Care Note [code = 69193-3] Goal Plan of Care Note [code = 23787-2] Goal Plan of Care Note [code = 52556-3] Goal Plan of Care Note [code = 80632-7] Goal Plan of Care Note [code = 36598-8] Goal Plan of Care Note [code = 79351-7] Goal Plan of Care Note [code = 40849-0] Goal Plan of Care Note [code = 22462-7] Goal Plan of Care Note [code = 46708-2] Goal Plan of Care Note [code = 24843-5] Goal Plan of Care Note [code = 90181-4] Goal Plan of Care Note [code = 26038-2] Goal Plan of Care Note [code = 87078-8] Goal Plan of Care Note [code = 28671-2] Goal Plan of Care Note [code = 46300-3] Goal Plan of Care Note [code = 69117-3] Goal Plan of Care Note [code = 40525-0] Goal Plan of Care Note [code = 07256-0] Goal Plan of Care Note [code = 97626-6] Goal Plan of Care Note [code = 75110-4] Goal Plan of Care Note [code = 29428-8] Goal Plan of Care Note [code = 16473-4] Goal Plan of Care Note [code = 98155-8] Goal Plan of Care Note [code = 21346-1] Goal Plan of Care Note [code = 80408-1] Goal Plan of Care Note [code = 76733-0] Goal Plan of Care Note [code = 01945-1] Goal Plan of Care Note [code = 40779-5] Goal Plan of Care Note [code = 67425-9] Goal Plan of Care Note [code = 28513-1] Goal Plan of Care Note [code = 32729-7] Goal Plan of Care Note [code = 95396-4] Goal Plan of Care Note [code = 64698-7] Goal Plan of Care Note [code = 31178-4] Goal Plan of Care Note [code = 40355-4] Goal Plan of Care Note [code = 34684-9] Goal Plan of Care Note [code = 15872-2] Goal Plan of Care Note [code = 03728-4] Goal Plan of Care Note [code = 60421-3] Goal Plan of Care Note [code = 31813-0] Goal Plan of Care Note [code = 66099-7] Goal Plan of Care Note [code = 57472-7] Goal Plan of Care Note [code = 21721-8] Goal Plan of Care Note [code = 83629-3] Goal Plan of Care Note [code = 24323-5] Goal Plan of Care Note [code = 81947-1] Goal Plan of Care Note [code = 36570-1] Goal Plan of Care Note [code = 21916-2] Goal Plan of Care Note [code = 49327-8] Goal Plan of Care Note [code = 61802-0] Goal Plan of Care Note [code = 69730-5] Goal Plan of Care Note [code = 91371-4] Goal Plan of Care Note [code = 25535-3] Goal Plan of Care Note [code = 60279-8] Goal Plan of Care Note [code = 35372-9] Goal Plan of Care Note [code = 96076-0] Goal Plan of Care Note [code = 70808-3] Goal Plan of Care Note [code = 58131-7] Goal Plan of Care Note [code = 18568-8] Goal Plan of Care Note [code = 06293-9] Goal Plan of Care Note [code = 47792-3] Goal Plan of Care Note [code = 93505-9] Goal Plan of Care Note [code = 60328-6] Goal Plan of Care Note [code = 36918-7] Goal Plan of Care Note [code = 06156-6] Goal Plan of Care Note [code = 88937-9] Goal Plan of Care Note [code = 22482-0] Goal Plan of Care Note [code = 55716-9] Goal Plan of Care Note [code = 49432-9] Goal Plan of Care Note [code = 73370-2] Goal Plan of Care Note [code = 50096-8] Goal Plan of Care Note [code = 90039-3] Goal Plan of Care Note [code = 68509-4] Goal Plan of Care Note [code = 38105-8] Goal Plan of Care Note [code = 91165-5] Goal Plan of Care Note [code = 19120-7] Goal Plan of Care Note [code = 50926-2] Goal Plan of Care Note [code = 93333-1] Goal Plan of Care Note [code = 57683-8] Goal Plan of Care Note [code = 52848-3] Goal Plan of Care Note [code = 97020-2] Goal Plan of Care Note [code = 85291-0] Goal Plan of Care Note [code = 87961-4] Goal Plan of Care Note [code = 24517-5] Goal Plan of Care Note [code = 68661-5] Goal Plan of Care Note [code = 94999-1] Goal Plan of Care Note [code = 33319-3] Goal Plan of Care Note [code = 22908-4] Goal Plan of Care Note [code = 32039-1] Goal Plan of Care Note [code = 77400-7] Goal Plan of Care Note [code = 95528-2] Goal Plan of Care Note [code = 89826-6] Goal Plan of Care Note [code = 41874-0] Goal Plan of Care Note [code = 09759-9] Goal Plan of Care Note [code = 04001-1] Goal Plan of Care Note [code = 39588-2] Goal Plan of Care Note [code = 41422-4] Goal Plan of Care Note [code = 37679-8] Goal Plan of Care Note [code = 26882-8] Goal Plan of Care Note [code = 22642-7] Goal Plan of Care Note [code = 23348-5] Goal Plan of Care Note [code = 63422-9] Goal Plan of Care Note [code = 15295-7] Goal Plan of Care Note [code = 57917-1] Goal Plan of Care Note [code = 85787-6] Goal Plan of Care Note [code = 85992-9] Goal Plan of Care Note [code = 37388-4] Goal Plan of Care Note [code = 06545-8] Goal Plan of Care Note [code = 87890-9] Goal Plan of Care Note [code = 55016-6] Goal Plan of Care Note [code = 16350-6] Goal Plan of Care Note [code = 90506-4] Goal Plan of Care Note [code = 33897-6] Goal Plan of Care Note [code = 67493-6] Goal Plan of Care Note [code = 31149-9] Goal Plan of Care Note [code = 45966-3] Goal Plan of Care Note [code = 29120-4] Goal Plan of Care Note [code = 14710-4] Goal Plan of Care Note [code = 64923-3] Goal Plan of Care Note [code = 53094-7] Goal Plan of Care Note [code = 47793-6] Goal Plan of Care Note [code = 76805-7] Goal Plan of Care Note [code = 42796-5] Goal Plan of Care Note [code = 18545-8] Goal Plan of Care Note [code = 14158-4] Goal Plan of Care Note [code = 67869-7] Goal Plan of Care Note [code = 95994-3] Goal Plan of Care Note [code = 75368-1] Goal Plan of Care Note [code = 61055-7] Goal Plan of Care Note [code = 01744-1] Goal Plan of Care Note [code = 46557-1] Goal Plan of Care Note [code = 24656-9] Goal Plan of Care Note [code = 57004-5] Goal Plan of Care Note [code = 72324-4] Goal Plan of Care Note [code = 30202-5] Goal Plan of Care Note [code = 73774-9] Goal Plan of Care Note [code = 75739-0] Goal Plan of Care Note [code = 46298-7] Goal Plan of Care Note [code = 61748-1] Goal Plan of Care Note [code = 19684-8] Goal Plan of Care Note [code = 41987-1] Goal Plan of Care Note [code = 89117-2] Goal Plan of Care Note [code = 87517-1] Goal Plan of Care Note [code = 84248-7] Goal Plan of Care Note [code = 39432-6] Goal Plan of Care Note [code = 07234-7] Goal Plan of Care Note [code = 75338-6] Goal Plan of Care Note [code = 02732-5] Goal Plan of Care Note [code = 12709-1] Goal Plan of Care Note [code = 63562-5] Goal Plan of Care Note [code = 59706-0] Goal Plan of Care Note [code = 46474-2] Goal Plan of Care Note [code = 35414-0] Goal Plan of Care Note [code = 11962-3] Goal Plan of Care Note [code = 15671-5] Goal Plan of Care Note [code = 74578-8] Goal Plan of Care Note [code = 19929-5] Goal Plan of Care Note [code = 17831-1] Goal Plan of Care Note [code = 16589-8] Goal Plan of Care Note [code = 18595-3] Goal Plan of Care Note [code = 87978-7] Goal Plan of Care Note [code = 83471-7] Goal Plan of Care Note [code = 23101-9] Goal Plan of Care Note [code = 37749-1] Goal Plan of Care Note [code = 48344-2] Goal Plan of Care Note [code = 95852-9] Goal Plan of Care Note [code = 95659-8] Goal Plan of Care Note [code = 50894-0] Goal Plan of Care Note [code = 10358-5] Goal Plan of Care Note [code = 59638-5] Goal Plan of Care Note [code = 11516-8] Goal Plan of Care Note [code = 71550-6] Goal Plan of Care Note [code = 65490-5] Goal Plan of Care Note [code = 77559-4] Goal Plan of Care Note [code = 69248-3] Goal Plan of Care Note [code = 40608-8] Goal Plan of Care Note [code = 80738-6] Goal Plan of Care Note [code = 65681-2] Goal Plan of Care Note [code = 67631-5] Goal Plan of Care Note [code = 87959-2] Goal Plan of Care Note [code = 59563-6] Goal Plan of Care Note [code = 59314-4] Goal Plan of Care Note [code = 51482-8] Goal Plan of Care Note [code = 03222-8] Goal Plan of Care Note [code = 94891-4] Goal Plan of Care Note [code = 18819-1] Goal Plan of Care Note [code = 06956-7] Goal Plan of Care Note [code = 53270-8] Goal Plan of Care Note [code = 28163-5] Goal Plan of Care Note [code = 83445-0] Goal Plan of Care Note [code = 03715-9] Goal Plan of Care Note [code = 60930-3] Goal Plan of Care Note [code = 35589-1] Goal Plan of Care Note [code = 25466-9] Goal Plan of Care Note [code = 24518-2] Goal Plan of Care Note [code = 32234-0] Goal Plan of Care Note [code = 83224-3] Goal Plan of Care Note [code = 64776-2] Goal Plan of Care Note [code = 60212-1] Goal Plan of Care Note [code = 56751-6] Goal Plan of Care Note [code = 95051-9] Goal Plan of Care Note [code = 45367-8] Goal Plan of Care Note [code = 89389-0] Goal Plan of Care Note [code = 14891-3] Goal Plan of Care Note [code = 75799-5] Goal Plan of Care Note [code = 50380-4] Goal Plan of Care Note [code = 42016-2] Goal Plan of Care Note [code = 43567-4] Goal Plan of Care Note [code = 46668-3] Goal Plan of Care Note [code = 76824-3] Goal Plan of Care Note [code = 20410-8] Goal Plan of Care Note [code = 18687-6] Goal Plan of Care Note [code = 15404-0] Goal Plan of Care Note [code = 54996-1] Goal Plan of Care Note [code = 61701-4] Goal Plan of Care Note [code = 65234-5] Goal Plan of Care Note [code = 43310-1] Goal Plan of Care Note [code = 81056-9] Goal Plan of Care Note [code = 12099-3] Goal Plan of Care Note [code = 98844-9] Goal Plan of Care Note [code = 88735-7] Goal Plan of Care Note [code = 33275-7] Goal Plan of Care Note [code = 60467-7] Goal Plan of Care Note [code = 36582-8] Goal Plan of Care Note [code = 79949-4] Goal Plan of Care Note [code = 31632-5] Goal Plan of Care Note [code = 04069-1] Goal Plan of Care Note [code = 40219-9] Goal Plan of Care Note [code = 66365-7] Goal Plan of Care Note [code = 35693-2] Goal Plan of Care Note [code = 82662-9] Goal Plan of Care Note [code = 93145-8] Goal Plan of Care Note [code = 07040-3] Goal Plan of Care Note [code = 50785-4] Goal Plan of Care Note [code = 72114-8] Goal Plan of Care Note [code = 36327-7] Goal Plan of Care Note [code = 29944-7] Goal Plan of Care Note [code = 64168-6] Goal Plan of Care Note [code = 45016-1] Goal Plan of Care Note [code = 08433-3] Goal Plan of Care Note [code = 54732-7] Goal Plan of Care Note [code = 96396-0] Encounters Start End Encounter Admission Attending Care Care Encounter Source Date/Time Date/Time Type Type Clinicians Facility Department ID 2021-05-[address] [facility] [id number] Univers 15:04:50 [facility] 2021-05-[address] [facility] [id number] Univers 16:08:38 [facility] 2020-08-08 Inpatient Bebeto Valderrama [facility] RADI [id number] [facility] 15:30:00 59 [facility] 2020-08-02 Inpatient HCAT[facility] CARISSA [id number] [facility] 13:01:00 80 [facility] 2020-02-13 Inpatient HCAT[facility] CARISSA [id number] [facility] 19:15:00 41 [facility] 2020-01-16 Inpatient ERICA Wilson, [facility] SURG [id number] [facility] 16:00:00 Tomiko 97 [facility] 2023-07-06 2023-07-06 Outpatient ORLY THORPE 122 [id number] Andreea 15:45:00 15:45:00 Seybol d 2023-03-30 2023-03-30 Outpatient ANDREEA CUTLERSEY [id number] Andreea 13:15:00 13:15:00 AMNA Seybol d 2023-02-28 2023-02-28 Outpatient RAINANDREEA [id number] Andreea 15:45:00 15:45:00 ARLENE Seybol d 2023-02-02 2023-02-02 Outpatient ORLY THORPE 122 [id number] [place]ree[place] 14:30:00 14:30:00 Seybol d 2023-02-02 2023-02-02 Outpatient ANDREEA PEOPLES [id number] Andreea 00:00:00 00:00:00 NETO Seybol d 2023-02-01 2023-02-01 Outpatient ZOYA GONZALEZ 122 [id number] [place]a 15:00:00 15:00:00 Seybol d 2023-02-01 2023-02-01 Outpatient ANDREEA EID [id number] [place]reea 14:30:00 14:30:00 NICOLÁS Seybol d 2023-01-10 2023-01-12 Outpatient Julieta JOSE [facility] [id number] Univers 07:31:00 11:08:00 GUDELIA diaz [facility] 2023-01-10 2023-01-[address] [facility] 1.2.8 40.114 [id number] Univers 07:31:00 11:08:00 Gudelia [facility] 350.1.13.10 [facility] 4.2.7.2.686 [facility] [phone] [address] 2023-01-04 2023-01-04 Outpatient THORPE ORLY BRAGA 122 [id number] [place]a 15:45:00 15:45:00 Seybol d 2022-12-27 2022-12-27 Outpatient ANDREEA PEOPLES [id number] [place]reea 00:00:00 00:00:00 NETO Seybol d 2022-12-22 2022-12-22 Outpatient ANDREEA PEOPLES [id number] [place]reea 00:00:00 00:00:00 NETO Seybol d 2022-12-21 2022-12-21 Outpatient RAGINI ANDREEA BRAGA [id number] Andreea 14:15:00 14:15:00 NICOLÁS Seybol d 2022-12-17 2022-12-17 Outpatient LAB90 ANDREEA BRAGA [id number] Andreea 15:45:00 15:45:00 Seybol d 2022-12-17 2022-12-17 Outpatient ANDREEA PEOPLES [id number] [place]reea 15:00:00 15:00:00 NETO Seybol d 2022-12-15 2022-12-15 Outpatient LAB90 ANDREEA BRAGA [id number] Andreea 08:30:00 08:30:00 Seybol d 2022-12-07 2022-12-07 Outpatient MELONY BRAGA 121 [id number] [place]a 00:00:00 00:00:00 MD CASANDRA Seybol d 2022-11-30 2022-11-30 Outpatient ANDREEA MCCLELLAND [id number] Andreea 13:50:00 13:50:00 JUDI Seybol d 2022-11-29 2022-11-29 Outpatient ANDREEA MORRISON [id number] Andreea 00:00:00 00:00:00 IVELISSE Seybol d 2022-11-29 2022-11-29 Outpatient ANDREEA BRAGA [id number] [place]reea 00:00:00 00:00:00 Seybol d 2022-11-29 2022-11-29 Outpatient ANDREEA PEOPLES [id number] [place]reea 00:00:00 00:00:00 NETO Seybol d 2022-11-24 2022-11-24 Outpatient ANDREEA PEOPLES [id number] Andreea 15:00:00 15:00:00 NETO Seybol d 2022-11-03 2022-11-03 Emergency Loni [facility] 1.2.194.630 [id number] Univers 08:26:00 11:02:00 Katelyn BARBER 350.1.13.10 i ty of [place] 4.2.7.2.686 [facility] [id number] [facility] [address] 2022-11-03 2022-11-03 Emergency X ANGEL IVEYMB ERT [id number] Univers 08:26:00 11:02:00 KATELYN diaz [facility] 2022-11-01 2022-11-01 Outpatient SFA [facility] [id number] Huang 16:16:49 16:16:49 0424 F Quirino 2022-11-01 2022-11-01 Outpatient PREANDREEA ROLLINS [id number] Andreea 16:00:00 16:00:00 NETO Seybol d 2022-11-01 2022-11-01 Outpatient PREZASANDREEA [id number] [place] 00:00:00 00:00:00 NETO Seybol d 2022-10-27 2022-10-27 Outpatient ANDREEA ZAMORA [id number] [place]reea 14:00:00 14:00:00 FABIO Seybol d 2022-10-26 2022-10-26 Outpatient PREZAANDREEA Mota [id number] [place]a 00:00:00 00:00:00 NETO Seybol d 2022-10-26 2022-10-26 Outpatient PREZASANDREEA [id number] Andreea 00:00:00 00:00:00 NETO Seybol d 2022-10-22 2022-10-22 Outpatient ANDREEA EID [id number] [place]a 16:45:00 16:45:00 NICOLÁS Seybol d 2022-10-21 2022-10-21 Outpatient ORLY THORPE [id number] [place] 10:00:00 10:00:00 Seybol d 2022-10-01 2022-10-01 Outpatient PREZAANDREEA Mota [id number] [place]reea 15:45:00 15:45:00 NETO Seybol d 2022-09-24 2022-09-24 Outpatient JARBRINK-SE ANDREEA BRAGA 118 [id number] [place]reea 15:00:00 15:00:00 YRIS AGUAYO Se 2022-09-21 2022-09-21 Outpatient PREZAANDREEA Mota [id number] [place]a 15:00:00 15:00:00 NETO Seybol d 2022-09-20 2022-09-20 Outpatient STEPHIEANANakul ANDREEA BRAGA [id number] [place]a 00:00:00 00:00:00 NETO Seybol d 2022-09-10 2022-09-10 Outpatient RAGINI ANDREEA BRAGA [id number] Andreea 10:30:00 10:30:00 NICOLÁS Seybol d 2022-09-09 2022-09-09 Outpatient RICHELLE ANDREEA BRAGA [id number] [place]a 00:00:00 00:00:00 NETO Seybol d 2022-09-09 2022-09-09 Outpatient RICHELLE ANDREEA BRAGA [id number] [place]reea 00:00:00 00:00:00 NETO Seybol d 2022-09-08 2022-09-08 Outpatient LAB90 ANDREEA BRAGA [id number] [place]reea 08:00:00 08:00:00 Seybol d 2022-09-07 2022-09-07 Outpatient STEPHIEAYO ANDREEA BRAGA [id number] [place]reea 15:00:00 15:00:00 NETO Seybol d 2022-09-01 2022-09-01 Transition JIE [place]arg[place] 1.2.840.114 [id number] Univers 00:00:00 00:00:00 of Care Leslie RIVERA 350.1.13.10 i ty of [place] 4.2.7.2.686 [facility] [id number] [facility] [address] 2022-08-26 2022-08-30 Inpatient X KAMALA [facility] [id number] Univers 14:36:00 10:41:00 MERI ity [facility] 2022-08-26 2022-08-30 [facility] Bolivar Robert [facility] 1.2.840. 114 [id number] Univers 14:36:00 10:41:00 Encounter Meri Wray 350.1.13.10 ity [facility] 4.2.7.2.686 [facility] [id number] [facility] [address] 2022-07-09 2022-07-09 Outpatient SFA [facility] [id number] Huang 09:41:12 09:41:12 1230 F Quirino 2022-07-09 2022-07-09 Outpatient 1u31990s- [id number] 59634r-m 00:00:00 00:00:00 Visit k41h-1ps2 40c-4fc9-a -e3nq-373 8bb-636dec hlfd4619p v0601i 2022-06-23 2022-06-23 Outpatient bx6w72fd- [id number] ac 7j02kd-9 00:00:00 00:00:00 Visit 3z6t-12z7 c8k-98m5-w -l1u8-w56 6e6-n635ki 5as0p1635 4m9576 2022-06-21 2022-06-21 Emergency X [facility] ERT [id number] Univers 17:30:00 23:11:00 KATELYN diaz [facility] 2022-06-21 2022-06-21 Emergency [facility] 1.2.325.[id number] [facility] 17:30:00 23:11:00 Katelyn BARBER 350.1.13.10 i [facility] 4.2.7.2.686 [facility] [id number] [address] 2022-06-18 2022-06-18 Outpatient SFA SFA [id number] 022 Huang 10:29:22 10:29:22 1209 [address] [place] 2022-06-18 2022-06-18 Outpatient 7zt0ruy6- [id number] 3a h0qpi1-d 00:00:00 00:00:00 Visit kh9k-4xf8 l2a-4od2-m -z835-t47 058-z6349k 03fcpu143 jao931 2022-06-17 2022-06-17 Outpatient SFA SFA [id number] 022 Huang 08:29:59 08:29:59 1208 F Quirino 2022-06-16 2022-06-16 Outpatient SFA SFA [id number] 022 Huang 15:41:26 15:41:26 1207 F Quirino 2022-06-16 2022-06-16 Outpatient 0o509t7r- [id number] 2f 752e0l-i 00:00:00 00:00:00 Visit dee3-4499 ee3-4499-9 -917d-e2d 17d-g8k655 07771283i 48741b 2022-06-04 2022-06-04 Outpatient SFA SFA 11131-2 022 Huang 11:59:44 11:59:44 1125 F Quirino 2022-06-02 2022-06-02 Outpatient 86q64p8c- [id number] h69j0x-4 00:00:00 00:00:00 Visit 756a-4a2e 56a-4a2e-b -f469-f25 549-l4608d 19p6026a2 9815d6 2022-04-29 2022-04-29 Outpatient SFA SFA 28053-5 022 Huang 08:03:25 08:03:25 1020 F Quirino 2022-04-29 2022-04-29 Outpatient [id number]- [id number] 3px546-7 00:00:00 00:00:00 Visit 6tb0-6a24 bd7-4b85-9 -940e-c2d 40e-c2dfc3 qu6555278 959996 7577-10-14 2022-04-23 Outpatient ay4c0748- [id number] bf 4s5480-c 00:00:00 00:00:00 Visit bn74-9hai f85-2tmq-1 -924a-d01 24a-d01f5f m1a5nj38h 4eb17f 2022-04-09 2022-04-09 Outpatient SFA SFA [id number] Huang 08:02:18 08:02:18 0930 F Quirino 2022-04-09 2022-04-09 Outpatient t3i26135- [id number] c2 h78927-3 00:00:00 00:00:00 Visit 7x77-53l9 s23-37m6-6 -8750-031 750-0319bb 5tane0140 uw8457 2022-03-29 2022-03-29 Outpatient [id number]- [id number] 060767-d 00:00:00 00:00:00 Visit f512-73u7 701-46a9-a -l6d8-j81 5g7-d65495 0690e89g3 3d26f8 2022-03-09 2022-03-09 Outpatient n7f51859- [id number] d6 m13155-f 00:00:00 00:00:00 Visit g53f-855f 56a-450d-9 -6h6v-24z k6t-18h057 204l85071 s72340 2022-01-20 2022-01-20 Outpatient 5nv52hja- [id number] 0f j00ugz-7 00:00:00 00:00:00 Visit 8baf-464d baf-464d-a -c56m-311 91e-50551v 95pwec29n aeb84a 2021-10-16 2021-10-16 [facility] [id number] Univers 16:39:00 22:23:00 BEATRIZ diaz [facility] 2021-10-16 2021-10-16 Emergency [facility] 1.2.145.611 [id number] Univers 16:39:00 22:23:00 Beatriz BARBER 350.1.13.10 ity [facility] 4[place].2.[place] [id number] [address] 2021-09-22 2021-09-22 Emergency X [facility] ERT [id number] Univers 09:56:00 12:05:00 JN diaz [facility] 2021-09-22 2021-09-22 [facility] 1.2.968.959 [id number] Univers 09:56:00 12:05:00 Jn BARBER 350.1.13.10 i ty [facility] 4.[place].2.[place] [id number] [address] 2021-08-20 2021-08-20 Cam Valdez [facility] 1.2.840.114 [id number] Univers 00:00:00 00:00:00 [facility] 350.1.13.10 it y of [place] 4.2.7.2.686 Blake as DANIELITO?BLEA [id number] [place] [address]anie[address] [facility] 2021-07-312021-07-31 Outpatient Bebeto Valderrama HCAT[facility] DAYS Y000 [id number] [facility] 05:47:00 05:47:00 00 [facility] 2021-06-18 2021-06-18 Emergency X KENYA [facility] ERT [id number] Univers 04:31:00 08:25:00 FOZIA [facility] 2021-06-18 2021-06-18 [facility] 1.2.070.642 [id number] Univers 04:31:00 08:25:00 Fozia Mota SUNIL 350.1.13.10 ity of [place] 4.2.7.2.686 [facility] [id number] [address] 2021-05-30 2021-05-30 Emergency [facility]RT [id number] Univers 15:49:00 19:42:00 MARY [facility] 2021-05-30 2021-05-30 [facility] 1.2.739.609 [id number] Univers 15:49:00 19:42:00 Mary Mota SUNIL 350.1.13.10 i ty of [place] 4.2.7.2.686 [facility] [id number] [address] 2021-03-17 2021-03-17 Cam [facility] 1.2.195.008 [id number] Univers 00:00:00 00:00:00 Doron Barber 350.1.13.10 i ty of [place] 4.2.7.2.686 [facility] Professio [id number] Wa dical nal [address] [facility] 2021-02-27 2021-02-[address] [facility] [id number] Univers 15:00:00 15:00:00 DORON diaz [facility] 2020-12-23 2020-12-[address] [facility] [id number] Univers 16:00:00 16:00:00 FABIO diaz [facility] 2020-12-10 2020-12-[address] [facility] [id number] Univers 09:00:00 09:53:04 BRYSON [facility] 2020-12-02 2020-12-04 Outpatient X KENYA, [facility] ANTONIO [id number] Univers 19:53:00 17:23:00 FOZIA [facility] 2020-11-07 2020-11-07 [facility] [id number] Univers 13:30:00 13:30:00 DORON isaac [facility] 2020-06-02 2020-06-02 Telephone [facility] 1.2.840.114 [id number] 00:00:00 00:00:00 Lily Barber 350.1.13.10 [place] 4.2.7.2.686 Professio [id number] [address] 2020-05-29 2020-05-29 [facility] [id number] Univers 15:15:00 15:15:00 LESLEE [facility] 2020-05-27 2020-05-27 [facility] 1.2.429.441 [id number] 10:59:24 11:54:17 Visit Lily Barber 350.1.13.10 [place] 4.2.7.2.686 Professio [id number] [address] 2020-05-27 2020-05-27 [facility] [id number] [facility] 10:45:00 10:45:00 LILY isaac [facility] 2020-05-27 2020-05-27 Orders Doctor JACOBS 1.2.840.114 [id number] 00:00:00 00:00:00 Only Unassigned, BENITA 350.1.13.10 [place] [facility] 4.2.7.2.686 [id number] 2020-01-10 2020-01-10 Outpatient PRANAY WilsonCL LABO [id number] [facility] 18:46:00 18:46:00 Tomiko 24 [facility] 2020-01-04 2020-01-04 Outpatient PRANAY WilsonTO RADI [id number] [facility] 13:00:00 13:00:00 Tomiko 18 [facility] 2019-12-12 2019-12-[address] [facility] [id number] Univers 16:30:00 16:30:00 STANISLAW [facility] 2019-12-07 2019-12-[address] [facility] [id number] Univers 09:00:00 09:00:00 DORON isaac [facility] 2019-09-11 2019-09-[address] [facility] [id number] Univers 10:30:00 10:30:00 STANISLAW [facility] 2019-08-23 2019-08-[address] [facility] [id number] Univers 16:15:00 10:31:44 LILY [facility] 2019-08-15 2019-08-[address] [facility] [id number] Univers 09:15:00 09:44:[address] [facility] 2019-07-07 2019-07-07 Emergency X KENYA [facility] ERT [id number] Univers 10:13:53 13:06:00 FOZIA [facility] 2010-08-05 2010-08-07 Inpatient OUTP Kit Lopez [facility] SURG [id number] [facility] 16:20:00 14:00:00 00 [facility] Results Test Description Test Time Test Comments Results Result Comments Source POCT GLUCOSE (AUTOMATED) 2023-01-12 12:35:42 Test Item Value Reference Range Interpretation Comme nts POCT GLU (test code = 6252744932) 179 mg/dL 70-110 H Lab Interpretation (test code = 55853-0) Abnormal [facility] GLUCOSE (AUTOMATED)2023-01-12 02:35:59 Test Item Value Reference Range Interpretation Comments POCT GLU (test code = 2729542726) 267 mg/dL 70-110 H Lab Interpretation (test code = Abnormal 95829-3) [facility] GLUCOSE (AUTOMATED)2023-01-11 21:21:17 Test Item Value Reference Range Interpretation Comments POCT GLU (test code = 1167952314) 276 mg/dL 70-110 H Lab Interpretation (test code = Abnormal 01405-3) [facility] GLUCOSE (AUTOMATED)2023-01-11 16:26:50 Test Item Value Reference Range Interpretation Comments POCT GLU (test code = 1594944604) 114 mg/dL 70-110 H Lab Interpretation (test code = Abnormal 16699-8) [facility] GLUCOSE (AUTOMATED)2023-01-11 12:44:00 Test Item Value Reference Range Interpretation Comments POCT GLU (test code = 8755606851) 142 mg/dL 70-110 H Lab Interpretation (test code = Abnormal 98442-7) [facility] GLUCOSE (AUTOMATED)2023-01-11 02:08:20 Test Item Value Reference Range Interpretation Comments POCT GLU (test code = 9289908016) 97 mg/dL 70-110 Lab Interpretation (test code = Normal 36247-5) [facility] 14:27:19 Test Item Value Reference Range Interpretation Comments TRIG (test code = 4417207422) 427 mg/dL 30-170 H Lab Interpretation (test code = Abnormal 21563-7) [facility] (36461)2023-01-10 14:22:41 Test Item Value Reference Range Interpretation Comments NA (test code = 138 mmol/L 135-145 2818402576) K (test code = 4.6 mmol/L 3.5-5.0 8372491833) CL (test code = 102 mmol/L 98-108 2187497514) CO2 TOTAL (test code = 21 mmol/L 23-31 L 9174849336) AGAP (test code = 15 2-16 4122619467) BUN (test code = 24 mg/dL 7-23 H 8838258164) GLUCOSE (test code = 158 mg/dL 70-110 H 5178841104) CREATININE (test code = 0.82 mg/dL 0.50-1.04 0759137960) TOTAL BILI (test code = 0.4 mg/dL 0.1-1.0 0628311574) CALCIUM (test code = 9.4 mg/dL 8.6-10.6 2739575583) T PROTEIN (test code = 7.9 g/dL 6.3-8.2 0197550662) ALBUMIN (test code = 4.7 g/dL 3.5-5.0 3337987590) ALK PHOS (test code = 42 U/L 34-122 7616658419) ALTv (test code = 32 U/L 5-35 1742-6) AST(SGOT) (test code = 27 U/L 13-40 3328686435) eGFR (test code = 75.7 mL/min/1.73m2 2091025216) CALVIN (test code = CALVIN) Association of [...] tests). Lab Interpretation Abnormal (test code = 28370-8) [facility] 14:22:41 Test Item Value Reference Range Interpretation Comments LIPASE (test code = 9939851701) 682 U/L 0-220 H Lab Interpretation (test code = Abnormal 68978-6) [facility] WITH CGRT0840-13-65 14:15:28 Test Item Value Reference Range Interpretation Comments WBC (test code = 7.27 See_Comment [Automated 6690-2) message] The sy stem which generated this result transmitted reference range : 4.30 - 11.10 10*3/?L. The reference range was not used to interpret this result as normal/abnormal . RBC (test code = 4.56 See_Comment [Automated 789-8) message] The sy stem which generated this result transmitted reference range : 3.93 - 5.25 10*6/?L. The reference range was not used to interpret this result as normal/abnormal . HGB (test code = 12.6 g/dL 11.6-15.0 718-7) HCT (test code = 38.4 % 35.7-45.2 4544-3) MCV (test code = 84.2 fL 80.6-95.5 787-2) MCH (test code = 27.6 pg 25.9-32.8 785-6) MCHC (test code = 32.8 g/dL 31.6-35.1 786-4) RDW-SD (test code = 45.0 fL 39.0-49.9 81220-4) RDW-CV (test code = 14.9 % 12.0-15.5 788-0) PLT (test code = 260 See_Comment [Automated 777-3) message] The sy stem which generated this result transmitted reference range : 166 - 358 10*3/ ?L. The reference r doretha was not used to interpret this result as normal/abnormal . MPV (test code = 9.3 fL 9.5-12.9 L 06709-5) NRBC/100 WBC (test 0.0 See_Comment [Automat ed code = 1074173352) message] The system which generated this result transmitted reference range : 0.0 - 10.0 /100 WBCs. The refer ence range was not u sed to interpret th is result as normal/abnormal . NRBC x10^3 (test code See_Comment [Auto mated = 9000804667) message] The s ystem which generated this result transmitted reference range : 10*3/?L. The reference range was not used to interpret this result as normal/abnormal . GRAN MAT (NEUT) % 51.9 % (test code = 770-8) IMM GRAN % (test code 0.60 % = 8497477503) LYMPH % (test code = 34.7 % 736-9) MONO % (test code = 9.2 % 5905-5) EOS % (test code = 2.5 % 713-8) BASO % (test code = 1.1 % 706-2) GRAN MAT x10^3(ANC) 3.78 10*3/uL 1.88-7.09 (test code = 0318886588) IMM GRAN x10^3 (test 0.04 10*3/uL 0.00-0.06 code = 6859928271) LYMPH x10^3 (test code 2.52 10*3/uL 1.32-3.29 = 731-0) MONO x10^3 (test code 0.67 10*3/uL 0.33-0.92 = 742-7) EOS x10^3 (test code = 0.18 10*3/uL 0.03-0.39 711-2) BASO x10^3 (test code 0.08 10*3/uL 0.01-0.07 H = 704-7) Lab Interpretation Abnormal (test code = 12531-7) [id number] 13:37:00 Test Item Value Reference Range Interpretation Comments POCT PREG (test code = 1605) Negative On board controls acceptable with C Yes Line (test code = 3574) Lab Interpretation (test code = Normal 91025-6) [facility]BLOOD [id number] 00:00:00 Test Item Value Reference Range Interpretation Comments BLOOD SUGAR (test code = 988586) 276 mg/dL 65-99 A Lab Interpretation (test code = Abnormal 13752-3) Andreea Corona - ExternalLIPID PANEL (24020)(TOTAL CHOLESTEROL, TRIGLYCERIDES, HDL)2022-11-03 14:32:57 Test Item Value Reference Range Interpretation Comments CHOL (test code = 236 mg/dL 120-200 H 0436148863) HDL (test code = 32 mg/dL >=50 L 2850624889) HDLC RATIO (test code = 7.4 <=4.5 H 9731703450) TRIG (test code = 667 mg/dL 30-170 H 3419557242) LDL CHOL (test code = Unable to calculate 44785-0) LDL due to elev ated triglyceride le jossy greater than 40 0 mg/dL. VLDL (test code = 133 mg/dL 5-60 H 7107737200) Lab Interpretation Abnormal (test code = 35295-1) [facility] METABOLIC PANEL (NA, K, CL, CO2, GLUCOSE, BUN, CREATININE, CA)2022-11-03 14:18:35 Test Item Value Reference Range Interpretation Comments NA (test code = 139 mmol/L 135-145 3566721756) K (test code = 4.4 mmol/L 3.5-5.0 3562488187) CL (test code = 105 mmol/L 98-108 9237955195) CO2 TOTAL (test code = 23 mmol/L 23-31 8729003875) AGAP (test code = 11 2-16 4834651789) BUN (test code = 12 mg/dL 7-23 3967278323) GLUCOSE (test code = 279 mg/dL 70-110 H 0382844448) CREATININE (test code = 0.59 mg/dL 0.50-1.04 2646187392) CALCIUM (test code = 9.8 mg/dL 8.6-10.6 6661147096) eGFR (test code = 110.7 mL/min/1.73m2 8383605093) CALVIN (test code = CALVIN) Association of [...] tests). Lab Interpretation Abnormal (test code = 51752-4) [facility] (66446[facility] (ALB,T.PRO,BILI T,BU/BC,ALT,AST,ALK PHOS)2022-11-03 14:18:35 Test Item Value Reference Range Interpretation Comments TOTAL BILI (test code = 3301169966) 0.8 mg/dL 0.1-1.1 BILI UNCON (test code = 8730502042) 0.6 mg/dL 0.1-1.1 BILI CONJ (test code = 0999712366) 0.0 mg/dL 0.0-0.3 T PROTEIN (test code = 2282076795) 8.5 g/dL 6.3-8.2 H ALBUMIN (test code = 5289619793) 4.9 g/dL 3.5-5.0 ALK PHOS (test code = 9933419229) 48 U/L 34-122 ALTv (test code = 1742-6) 60 U/L 5-35 H AST(SGOT) (test code = 4110758931) 56 U/L 13-40 H Lab Interpretation (test code = Abnormal 42612-5) [facility] 14:18:15 Test Item Value Reference Range Interpretation Comments LIPASE (test code = 7788417437) 240 U/L 0-220 H Lab Interpretation (test code = Abnormal 94770-0) [facility] WITH [id number] 14:01:29 Test Item Value Reference Range Interpretation Comments WBC (test code = 6.73 See_Comment [Automated 8390-2) message] The sy stem which generated this result transmitted reference range : 4.30 - 11.10 10*3/?L. The reference range was not used to interpret this result as normal/abnormal . RBC (test code = 4.90 See_Comment [Automated 789-8) message] The sy stem [...] RDW-SD (test code = 39.7 fL 39.0-49.9 52640-2) RDW-CV (test code = 13.0 % 12.0-15.5 788-0) PLT (test code = 252 See_Comment [Automated 777-3) message] The sy stem which generated this result transmitted reference range : 166 - 358 10*3/ ?L. The reference r doretha was not used to interpret this result as normal/abnormal . MPV (test code = 9.4 fL 9.5-12.9 L 55086-7) NRBC/100 WBC (test 0.0 See_Comment [Automat ed code = 6108391625) message] The system which generated this result transmitted reference range : 0.0 - 10.0 /100 WBCs. The refer ence range was not u sed to interpret th is result as normal/abnormal . NRBC x10^3 (test code See_Comment [Auto mated = 2426205135) message] The s ystem which generated this result transmitted reference range : 10*3/?L. The reference range was not used to interpret this result as normal/abnormal . GRAN MAT (NEUT) % 54.5 % (test code = 770-8) IMM GRAN % (test code 0.70 % = 8506974767) LYMPH % (test code = 34.3 % 736-9) MONO % (test code = 7.4 % 5905-5) EOS % (test code = 2.1 % 713-8) BASO % (test code = 1.0 % 706-2) GRAN MAT x10^3(ANC) 3.66 10*3/uL 1.88-7.09 (test code = 2200445807) IMM GRAN x10^3 (test 0.05 10*3/uL 0.00-0.06 code = 8479509520) LYMPH x10^3 (test code 2.31 10*3/uL 1.32-3.29 = 731-0) MONO x10^3 (test code 0.50 10*3/uL 0.33-0.92 = 742-7) EOS x10^3 (test code = 0.14 10*3/uL 0.03-0.39 711-2) BASO x10^3 (test code 0.07 10*3/uL 0.01-0.07 = 704-7) Lab Interpretation Abnormal (test code = 65952-9) [facility] STRIP/BLOOD [id number] 00:00:00 Test Item Value Reference Range Interpretation Comments BLOOD SUGAR (test code = 440444) 260 mg/dL 65-99 A Lab Interpretation (test code = Abnormal 16387-8) [facility] GLUCOSE (AUTOMATED)2022-08-30 14:54:37 Test Item Value Reference Range Interpretation Comments POCT GLU (test code = 9263069376) 123 mg/dL 70-110 H Lab Interpretation (test code = Abnormal 08495-1) [facility] GLUCOSE (AUTOMATED)2022-08-30 13:07:24 Test Item Value Reference Range Interpretation Comments POCT GLU (test code = 7542744177) 130 mg/dL 70-110 H Lab Interpretation (test code = Abnormal 86303-9) [facility] GLUCOSE (AUTOMATED)2022-08-30 12:05:08 Test Item Value Reference Range Interpretation Comments POCT GLU (test code = 4222561636) 136 mg/dL 70-110 H Lab Interpretation (test code = Abnormal 20115-3) [facility] GLUCOSE (AUTOMATED)2022-08-30 11:08:07 Test Item Value Reference Range Interpretation Comments POCT GLU (test code = 1587854762) 115 mg/dL 70-110 H Lab Interpretation (test code = Abnormal 46155-6) [facility]2022-08-30 10:21:27 Test Item Value Reference Range Interpretation Comments POCT GLU (test code = 6509385651) 111 mg/dL 70-110 H Lab Interpretation (test code = Abnormal 38103-2) [facility] GLUCOSE (AUTOMATED)2022-08-30 09:12:24 Test Item Value Reference Range Interpretation Comments POCT GLU (test code = 8738391026) 121 mg/dL 70-110 H Lab Interpretation (test code = Abnormal 35538-6) [facility] GLUCOSE (AUTOMATED)2022-08-30 08:11:01 Test Item Value Reference Range Interpretation Comments POCT GLU (test code = 8820454625) 137 mg/dL 70-110 H Lab Interpretation (test code = Abnormal 71157-0) [facility] GLUCOSE (AUTOMATED)2022-08-30 07:47:30 Test Item Value Reference Range Interpretation Comments POCT GLU (test code = 3935773153) 134 mg/dL 70-110 H Lab Interpretation (test code = Abnormal 51828-6) [facility]2022-08-30 06:32:02 Test Item Value Reference Range Interpretation Comments POCT GLU (test code = 3827378306) 128 mg/dL 70-110 H Lab Interpretation (test code = Abnormal 26254-5) [facility] GLUCOSE (AUTOMATED)2022-08-30 05:05:59 Test Item Value Reference Range Interpretation Comments POCT GLU (test code = 7058294671) 157 mg/dL 70-110 H Lab Interpretation (test code = Abnormal 05044-8) [facility]2022-08-30 04:14:51 Test Item Value Reference Range Interpretation Comments POCT GLU (test code = 6895841292) 181 mg/dL 70-110 H Lab Interpretation (test code = Abnormal 99730-6[facility] 03:07:48 Test Item Value Reference Range Interpretation Comments POCT GLU (test code = 2152345301) 150 mg/dL 70-110 H Lab Interpretation (test code = Abnormal 22861-1) [facility] GLUCOSE (AUTOMATED)2022-08-30 02:26:22 Test Item Value Reference Range Interpretation Comments POCT GLU (test code = 2884264658) 118 mg/dL 70-110 H Lab Interpretation (test code = Abnormal 55979-3) [facility] GLUCOSE (AUTOMATED)2022-08-30 01:05:37 Test Item Value Reference Range Interpretation Comments POCT GLU (test code = 8740419875) 150 mg/dL 70-110 H Lab Interpretation (test code = Abnormal 12592-0) [facility] GLUCOSE (AUTOMATED)2022-08-30 00:05:56 Test Item Value Reference Range Interpretation Comments POCT GLU (test code = 1024062035) 206 mg/dL 70-110 H Lab Interpretation (test code = Abnormal 83027-8) [facility] GLUCOSE (AUTOMATED)2022-08-29 23:02:06 Test Item Value Reference Range Interpretation Comments POCT GLU (test code = 9349170073) 172 mg/dL 70-110 H Lab Interpretation (test code = Abnormal 65718-5) [facility] GLUCOSE (AUTOMATED)2022-08-29 22:07:12 Test Item Value Reference Range Interpretation Comments POCT GLU (test code = 8030131171) 110 mg/dL 70-110 Lab Interpretation (test code = Normal 74376-3) [facility] GLUCOSE (AUTOMATED)2022-08-29 21:14:06 Test Item Value Reference Range Interpretation Comments POCT GLU (test code = 2827998655) 118 mg/dL 70-110 H Lab Interpretation (test code = Abnormal 57946-5) [facility] GLUCOSE (AUTOMATED)2022-08-29 20:09:27 Test Item Value Reference Range Interpretation Comments POCT GLU (test code = 8671041743) 104 mg/dL 70-110 Lab Interpretation (test code = Normal 61228-4) [facility] GLUCOSE (AUTOMATED)2022-08-29 19:11:06 Test Item Value Reference Range Interpretation Comments POCT GLU (test code = 4886484462) 101 mg/dL 70-110 Lab Interpretation (test code = Normal 27709-3) [facility] GLUCOSE (AUTOMATED)2022-08-29 18:15:25 Test Item Value Reference Range Interpretation Comments POCT GLU (test code = 2897317896) 125 mg/dL 70-110 H Lab Interpretation (test code = Abnormal 82650-0) [facility] GLUCOSE (AUTOMATED)2022-08-29 17:11:12 Test Item Value Reference Range Interpretation Comments POCT GLU (test code = 1594277946) 116 mg/dL 70-110 H Lab Interpretation (test code = Abnormal 33845-9) [facility] GLUCOSE (AUTOMATED)2022-08-29 16:16:36 Test Item Value Reference Range Interpretation Comments POCT GLU (test code = 8923397320) 139 mg/dL 70-110 H Lab Interpretation (test code = Abnormal 32845-0) [facility] GLUCOSE (AUTOMATED)2022-08-29 15:08:34 Test Item Value Reference Range Interpretation Comments POCT GLU (test code = 2735638665) 159 mg/dL 70-110 H Lab Interpretation (test code = Abnormal 94193-1) [facility] GLUCOSE (AUTOMATED)2022-08-29 14:18:05 Test Item Value Reference Range Interpretation Comments POCT GLU (test code = 4314039875) 147 mg/dL 70-110 H Lab Interpretation (test code = Abnormal 33233-1) [facility] GLUCOSE (AUTOMATED)2022-08-29 13:22:04 Test Item Value Reference Range Interpretation Comments POCT GLU (test code = 6819435538) 151 mg/dL 70-110 H Lab Interpretation (test code = Abnormal 55377-3) [facility] GLUCOSE (AUTOMATED)2022-08-29 12:11:27 Test Item Value Reference Range Interpretation Comments POCT GLU (test code = 2293044148) 163 mg/dL 70-110 H Lab Interpretation (test code = Abnormal 05140-6) [facility] GLUCOSE (AUTOMATED)2022-08-29 10:58:04 Test Item Value Reference Range Interpretation Comments POCT GLU (test code = 6164566676) 162 mg/dL 70-110 H Lab Interpretation (test code = Abnormal 02926-0) [facility] GLUCOSE (AUTOMATED)2022-08-29 10:03:25 Test Item Value Reference Range Interpretation Comments POCT GLU (test code = 6912680353) 184 mg/dL 70-110 H Lab Interpretation (test code = Abnormal 12112-9) [facility] GLUCOSE (AUTOMATED)2022-08-29 09:10:58 Test Item Value Reference Range Interpretation Comments POCT GLU (test code = 5955409400) 176 mg/dL 70-110 H Lab Interpretation (test code = Abnormal 02841-7) [facility] GLUCOSE (AUTOMATED)2022-08-29 08:04:18 Test Item Value Reference Range Interpretation Comments POCT GLU (test code = 6676359563) 158 mg/dL 70-110 H Lab Interpretation (test code = Abnormal 45241-1) [facility] GLUCOSE (AUTOMATED)2022-08-29 07:09:28 Test Item Value Reference Range Interpretation Comments POCT GLU (test code = 9138523235) 137 mg/dL 70-110 H Lab Interpretation (test code = Abnormal 57069-8) [facility] GLUCOSE (AUTOMATED)2022-08-29 06:07:41 Test Item Value Reference Range Interpretation Comments POCT GLU (test code = 2456807010) 136 mg/dL 70-110 H Lab Interpretation (test code = Abnormal 11423-9) [facility] GLUCOSE (AUTOMATED)2022-08-29 05:12:21 Test Item Value Reference Range Interpretation Comments POCT GLU (test code = 1887080357) 151 mg/dL 70-110 H Lab Interpretation (test code = Abnormal 41573-8) [facility] GLUCOSE (AUTOMATED)2022-08-29 04:11:30 Test Item Value Reference Range Interpretation Comments POCT GLU (test code = 3199680931) 166 mg/dL 70-110 H Lab Interpretation (test code = Abnormal 33336-4) [facility] GLUCOSE (AUTOMATED)2022-08-29 03:21:25 Test Item Value Reference Range Interpretation Comments POCT GLU (test code = 8055699718) 185 mg/dL 70-110 H Lab Interpretation (test code = Abnormal 05349-6) [facility] GLUCOSE (AUTOMATED)2022-08-29 02:13:24 Test Item Value Reference Range Interpretation Comments POCT GLU (test code = 1249922573) 139 mg/dL 70-110 H Lab Interpretation (test code = Abnormal 09552-8) [facility] GLUCOSE (AUTOMATED)2022-08-29 01:03:43 Test Item Value Reference Range Interpretation Comments POCT GLU (test code = 3089207821) 144 mg/dL 70-110 H Lab Interpretation (test code = Abnormal 37469-3) [facility] GLUCOSE (AUTOMATED)2022-08-29 00:27:52 Test Item Value Reference Range Interpretation Comments POCT GLU (test code = 5508472917) 193 mg/dL 70-110 H Lab Interpretation (test code = Abnormal 30960-7) [facility] GLUCOSE (AUTOMATED)2022-08-28 23:18:19 Test Item Value Reference Range Interpretation Comments POCT GLU (test code = 9000266862) 162 mg/dL 70-110 H Lab Interpretation (test code = Abnormal 13447-5) [facility] GLUCOSE (AUTOMATED)2022-08-28 22:25:29 Test Item Value Reference Range Interpretation Comments POCT GLU (test code = 2162250926) 163 mg/dL 70-110 H Lab Interpretation (test code = Abnormal 62465-1) [facility] GLUCOSE (AUTOMATED)2022-08-28 21:06:41 Test Item Value Reference Range Interpretation Comments POCT GLU (test code = 1260113284) 179 mg/dL 70-110 H Lab Interpretation (test code = Abnormal 71829-3) [facility] GLUCOSE (AUTOMATED)2022-08-28 20:08:24 Test Item Value Reference Range Interpretation Comments POCT GLU (test code = 8805140683) 159 mg/dL 70-110 H Lab Interpretation (test code = Abnormal 60097-8) [facility] GLUCOSE (AUTOMATED)2022-08-28 19:08:09 Test Item Value Reference Range Interpretation Comments POCT GLU (test code = 7371266415) 129 mg/dL 70-110 H Lab Interpretation (test code = Abnormal 65876-4) [facility] GLUCOSE (AUTOMATED)2022-08-28 18:16:18 Test Item Value Reference Range Interpretation Comments POCT GLU (test code = 1124906608) 106 mg/dL 70-110 Lab Interpretation (test code = Normal 63046-7) [facility] GLUCOSE (AUTOMATED)2022-08-28 17:06:55 Test Item Value Reference Range Interpretation Comments POCT GLU (test code = 5203580909) 136 mg/dL 70-110 H Lab Interpretation (test code = Abnormal 42055-7) [facility] GLUCOSE (AUTOMATED)2022-08-28 16:05:13 Test Item Value Reference Range Interpretation Comments POCT GLU (test code = 7280247092) 141 mg/dL 70-110 H Lab Interpretation (test code = Abnormal 00865-7) [facility] GLUCOSE (AUTOMATED)2022-08-28 15:04:57 Test Item Value Reference Range Interpretation Comments POCT GLU (test code = 9329680466) 168 mg/dL 70-110 H Lab Interpretation (test code = Abnormal 77825-2) [facility] GLUCOSE (AUTOMATED)2022-08-28 14:10:31 Test Item Value Reference Range Interpretation Comments POCT GLU (test code = 5955424788) 163 mg/dL 70-110 H Lab Interpretation (test code = Abnormal 43471-1) [facility] GLUCOSE (AUTOMATED)2022-08-28 13:07:27 Test Item Value Reference Range Interpretation Comments POCT GLU (test code = 7440198926) 133 mg/dL 70-110 H Lab Interpretation (test code = Abnormal 45382-0) [facility] GLUCOSE (AUTOMATED)2022-08-28 12:32:10 Test Item Value Reference Range Interpretation Comments POCT GLU (test code = 2685368232) 150 mg/dL 70-110 H Lab Interpretation (test code = Abnormal 71767-1) [facility] 12:14:56 Test Item Value Reference Range Interpretation Comments TRIG (test code = 9435488024) 1527 mg/dL 30-170 H Lab Interpretation (test code = Abnormal 98939-2) [facility] (NA, K, CL, CO2, GLUCOSE, BUN, CREATININE, CA)2022-08-28 12:02:28 Test Item Value Reference Range Interpretation Comments NA (test code = 137 mmol/L 135-145 0651353743) K (test code = 4.0 mmol/L 3.5-5.0 1936393141) CL (test code = 112 mmol/L 98-108 H 9542339961) CO2 TOTAL (test code = 19 mmol/L 23-31 L 3266800276) AGAP (test code = 6 2-16 7611943206) BUN (test code = 9 mg/dL 7-23 4368001279) GLUCOSE (test code = 157 mg/dL 70-110 H 0686697188) CREATININE (test code = 0.53 mg/dL 0.50-1.04 4510350730) CALCIUM (test code = 7.2 mg/dL 8.6-10.6 L 0865992464) eGFR (test code = 125.3 mL/min/1.73m2 1467264545) CALVIN (test code = CALVIN) Association of [...] tests). Lab Interpretation Abnormal (test code = 26769-9) [facility] GLUCOSE (AUTOMATED)2022-08-28 11:34:27 Test Item Value Reference Range Interpretation Comments POCT GLU (test code = 3530965769) 139 mg/dL 70-110 H Lab Interpretation (test code = Abnormal 11913-4) [facility] GLUCOSE (AUTOMATED)2022-08-28 10:08:58 Test Item Value Reference Range Interpretation Comments POCT GLU (test code = 1201712924) 159 mg/dL 70-110 H Lab Interpretation (test code = Abnormal 26619-8) [facility] GLUCOSE (AUTOMATED)2022-08-28 09:03:44 Test Item Value Reference Range Interpretation Comments POCT GLU (test code = 5560982737) 138 mg/dL 70-110 H Lab Interpretation (test code = Abnormal 09123-3) [facility] GLUCOSE (AUTOMATED)2022-08-28 08:09:23 Test Item Value Reference Range Interpretation Comments POCT GLU (test code = 7923065462) 134 mg/dL 70-110 H Lab Interpretation (test code = Abnormal 01240-7) [facility] GLUCOSE (AUTOMATED)2022-08-28 06:02:02 Test Item Value Reference Range Interpretation Comments POCT GLU (test code = 2965243883) 159 mg/dL 70-110 H Lab Interpretation (test code = Abnormal 55197-7) [facility] GLUCOSE (AUTOMATED)2022-08-28 05:07:18 Test Item Value Reference Range Interpretation Comments POCT GLU (test code = 8729799368) 132 mg/dL 70-110 H Lab Interpretation (test code = Abnormal 75507-4) [facility] GLUCOSE (AUTOMATED)2022-08-28 04:03:46 Test Item Value Reference Range Interpretation Comments POCT GLU (test code = 0671169229) 132 mg/dL 70-110 H Lab Interpretation (test code = Abnormal 00363-3) [facility] GLUCOSE (AUTOMATED)2022-08-28 03:06:02 Test Item Value Reference Range Interpretation Comments POCT GLU (test code = 0391778866) 161 mg/dL 70-110 H Lab Interpretation (test code = Abnormal 07382-7) [facility] GLUCOSE (AUTOMATED)2022-08-28 02:11:59 Test Item Value Reference Range Interpretation Comments POCT GLU (test code = 3936781594) 152 mg/dL 70-110 H Lab Interpretation (test code = Abnormal 67041-4) [facility] GLUCOSE (AUTOMATED)2022-08-28 01:13:55 Test Item Value Reference Range Interpretation Comments POCT GLU (test code = 9825751476) 154 mg/dL 70-110 H Lab Interpretation (test code = Abnormal 69848-0) [facility] GLUCOSE (AUTOMATED)2022-08-28 00:04:53 Test Item Value Reference Range Interpretation Comments POCT GLU (test code = 7262514481) 171 mg/dL 70-110 H Lab Interpretation (test code = Abnormal 33588-7) [facility] GLUCOSE (AUTOMATED)2022-08-27 23:36:39 Test Item Value Reference Range Interpretation Comments POCT GLU (test code = 0867472552) 192 mg/dL 70-110 H Lab Interpretation (test code = Abnormal 01546-3) [facility] GLUCOSE (AUTOMATED)2022-08-27 22:12:56 Test Item Value Reference Range Interpretation Comments POCT GLU (test code = 3811466102) 209 mg/dL 70-110 H Lab Interpretation (test code = Abnormal 80092-7) [facility] GLUCOSE (AUTOMATED)2022-08-27 21:04:44 Test Item Value Reference Range Interpretation Comments POCT GLU (test code = 5822501573) 173 mg/dL 70-110 H Lab Interpretation (test code = Abnormal 86522-9) [facility] GLUCOSE (AUTOMATED)2022-08-27 20:46:25 Test Item Value Reference Range Interpretation Comments POCT GLU (test code = 8126624377) 104 mg/dL 70-110 Lab Interpretation (test code = Normal 72556-7) [facility] GLUCOSE (AUTOMATED)2022-08-27 19:02:38 Test Item Value Reference Range Interpretation Comments POCT GLU (test code = 6351345570) 156 mg/dL 70-110 H Lab Interpretation (test code = Abnormal 39748-7) [facility] GLUCOSE (AUTOMATED)2022-08-27 18:04:27 Test Item Value Reference Range Interpretation Comments POCT GLU (test code = 2623932207) 146 mg/dL 70-110 H Lab Interpretation (test code = Abnormal 87707-7) [facility] GLUCOSE (AUTOMATED)2022-08-27 17:01:16 Test Item Value Reference Range Interpretation Comments POCT GLU (test code = 1442819958) 152 mg/dL 70-110 H Lab Interpretation (test code = Abnormal 66912-0) [facility] GLUCOSE (AUTOMATED)2022-08-27 16:14:54 Test Item Value Reference Range Interpretation Comments POCT GLU (test code = 8681248215) 173 mg/dL 70-110 H Lab Interpretation (test code = Abnormal 87169-9) [facility] GLUCOSE (AUTOMATED)2022-08-27 15:15:33 Test Item Value Reference Range Interpretation Comments POCT GLU (test code = 3869042385) 128 mg/dL 70-110 H Lab Interpretation (test code = Abnormal 68675-6) [facility] GLUCOSE (AUTOMATED)2022-08-27 14:21:55 Test Item Value Reference Range Interpretation Comments POCT GLU (test code = 7316035903) 128 mg/dL 70-110 H Lab Interpretation (test code = Abnormal 37146-6) [facility] GLUCOSE (AUTOMATED)2022-08-27 13:24:52 Test Item Value Reference Range Interpretation Comments POCT GLU (test code = 1983543618) 140 mg/dL 70-110 H Lab Interpretation (test code = Abnormal 71487-1) [facility] GLUCOSE (AUTOMATED)2022-08-27 12:09:47 Test Item Value Reference Range Interpretation Comments POCT GLU (test code = 0476664296) 167 mg/dL 70-110 H Lab Interpretation (test code = Abnormal 43570-0) [facility] GLUCOSE (AUTOMATED)2022-08-27 11:09:03 Test Item Value Reference Range Interpretation Comments POCT GLU (test code = 8458203969) 148 mg/dL 70-110 H Lab Interpretation (test code = Abnormal 95030-4) [facility] GLUCOSE (AUTOMATED)2022-08-27 10:16:49 Test Item Value Reference Range Interpretation Comments POCT GLU (test code = 8752809287) 129 mg/dL 70-110 H Lab Interpretation (test code = Abnormal 49008-1) [facility] GLUCOSE (AUTOMATED)2022-08-27 09:21:11 Test Item Value Reference Range Interpretation Comments POCT GLU (test code = 8992888354) 145 mg/dL 70-110 H Lab Interpretation (test code = Abnormal 96727-6) [facility] GLUCOSE (AUTOMATED)2022-08-27 07:01:10 Test Item Value Reference Range Interpretation Comments POCT GLU (test code = 1515693170) 126 mg/dL 70-110 H Lab Interpretation (test code = Abnormal 65567-0) [facility] GLUCOSE (AUTOMATED)2022-08-27 06:14:53 Test Item Value Reference Range Interpretation Comments POCT GLU (test code = 2197554322) 154 mg/dL 70-110 H Lab Interpretation (test code = Abnormal 35492-6) [facility] 05[facility]:57 Test Item Value Reference Range Interpretation Comments LIPASE (test code = 1430787053) 197 U/L 0-220 Lab Interpretation (test code = Normal 13120-8) [facility] GLUCOSE (AUTOMATED)2022-08-27 05:13:21 Test Item Value Reference Range Interpretation Comments POCT GLU (test code = 2664908106) 163 mg/dL 70-110 H Lab Interpretation (test code = Abnormal 68142-5) [facility]ENS[facility] LIPOPROTEIN, [id number] 04:16:58 Test Item Value Reference Range Interpretation Comments dLDL Chol (test code = 72774-2) 63 mg/dL <=130 Lab Interpretation (test code = Normal 30098-8) [facility] HospitalOSMOLALITY, SERUM OR [id number] 04:12:04 Test Item Value Reference Range Interpretation Comments OSMOLALITY (test code = 319 See_Comment H [Au tomated message] 3492-2) The system [employer] generated this result transmitted ref erence range: 278 - 30 5 mOsm/kg. The reference range was not used to int erpret this result as normal/abnormal . Lab Interpretation (test Abnormal code = 85925-5) [facility] GLUCOSE (AUTOMATED)2022-08-27 03:17:19 Test Item Value Reference Range Interpretation Comments POCT GLU (test code = 1945770434) 244 mg/dL 70-110 H Lab Interpretation (test code = Abnormal 91225-7) [facility] HospitalBasi Metabolic Panel (NA, K, CL, CO2, GLUCOSE, BUN, CREATININE, CA)2022-08-27 02:55:11 Test Item Value Reference Range Interpretation Comments NA (test code = 134 mmol/L 135-145 L 6937081680) K (test code = 4.3 mmol/L 3.5-5.0 8204975564) CL (test code = 103 mmol/L 98-108 0220831232) CO2 TOTAL (test code = 19 mmol/L 23-31 L 8803164066) AGAP (test code = 12 2-16 5606304959) BUN (test code = 25 mg/dL 7-23 H 5321767450) GLUCOSE (test code = 277 mg/dL 70-110 H 1805842453) CREATININE (test code = 0.77 mg/dL 0.50-1.04 3850161540) CALCIUM (test code = 8.2 mg/dL 8.6-10.6 L 6723087932) eGFR (test code = 81.4 mL/min/1.73m2 5893270818) CALVIN (test code = CALVIN) Association of [...] tests). Lab Interpretation Abnormal (test code = 62220-8) [facility] GLUCOSE (AUTOMATED)2022-08-27 02:03:06 Test Item Value Reference Range Interpretation Comments POCT GLU (test code = 4600166954) 322 mg/dL 70-110 H Lab Interpretation (test code = Abnormal 09306-5) [facility] GLUCOSE (AUTOMATED)2022-08-27 01:25:59 Test Item Value Reference Range Interpretation Comments POCT GLU (test code = 8988798296) 324 mg/dL 70-110 H Lab Interpretation (test code = Abnormal 56205-2) [facility] GLUCOSE (AUTOMATED)2022-08-27 00:32:23 Test Item Value Reference Range Interpretation Comments POCT GLU (test code = 1639784533) 372 mg/dL 70-110 H Lab Interpretation (test code = Abnormal 58164-4) [facility] GLUCOSE (AUTOMATED)2022-08-27 00:00:02 Test Item Value Reference Range Interpretation Comments POCT GLU (test code = 6532809134) 382 mg/dL 70-110 H Lab Interpretation (test code = Abnormal 11377-6) [facility] GLUCOSE (AUTOMATED)2022-08-26 23:10:50 Test Item Value Reference Range Interpretation Comments POCT GLU (test code = 2390876647) 409 mg/dL 70-110 H Lab Interpretation (test code = Abnormal 37816-3) [facility] HospitalLIPID PANEL ([id number])(TOTAL CHOLESTEROL, TRIGLYCERIDES, HDL)2022-08-26 22:34:41 Test Item Value Reference Range Interpretation Comments CHOL (test code = 381 mg/dL 120-200 H 4039748802) HDL (test code = 25 mg/dL >=50 L 8055288034) HDLC RATIO (test code = 15.2 <=4.5 H 9058250205) TRIG (test code = 30-170 H 6873843896) LDL CHOL (test code = Unable to calculate 68759-9) LDL due to elev ated triglyceride le jossy greater than 40 0 mg/dL. VLDL (test code = Unable to calculate 6810905914) VLDL due to [place] vated triglyceride le jossy greater than 71 0 mg/dL. Lab Interpretation Abnormal (test code = 53069-2) [facility]2022-08-26 22:11:52 Test Item Value Reference Range Interpretation Comments POCT GLU (test code = 6190736501) 375 mg/dL 70-110 H Lab Interpretation (test code = Abnormal 24197-3) [facility]26 22:06:45 Test Item Value Reference Range Interpretation Comments NA (test code = 131 mmol/L 135-145 L 4818746641) K (test code = 5.4 mmol/L 3.5-5.0 H 5077991190) CL (test code = 95 mmol/L 98-108 L 0083209006) CO2 TOTAL (test code = 9 mmol/L 23-31 L 9372585405) AGAP (test code = 27 2-16 H 0487508841) BUN (test code = 29 mg/dL 7-23 H 9737675060) GLUCOSE (test code = 444 mg/dL 70-110 H 3147476002) CREATININE (test code = 1.01 mg/dL 0.50-1.04 5743037284) TOTAL BILI (test code = 0.9 mg/dL 0.1-1.8 7126356549) CALCIUM (test code = 9.2 mg/dL 8.6-10.6 1596871067) T PROTEIN (test code = 9.4 g/dL 6.3-8.2 H 2527842404) ALBUMIN (test code = 4.8 g/dL 3.5-5.0 6664263643) ALK PHOS (test code = 79 U/L 34-122 0006751840) ALTv (test code = 43 U/L 5-35 H 1742-6) AST(SGOT) (test code = 42 U/L 13-40 H 6796565485) eGFR (test code = 59.5 mL/min/1.73m2 3523226203) CALVIN (test code = CALVIN) Association of [...] tests). Lab Interpretation Abnormal (test code = 32427-6) [facility]MAGN[facility]IUM2023-[facility]-16 22:02:31 Test Item Value Reference Range Interpretation Comments MAGNESIUM (test code = 0187258880) 1.7 mg/dL 1.7-2.4 Lab Interpretation (test code = Normal 67410-3) [facility] WITH [id number] 21:22:43 Test Item Value Reference Range Interpretation Comments WBC (test code = 9.75 See_Comment [Automated 6378-2) message] The sy stem which generated this result transmitted reference range : 4.30 - 11.10 10*3/?L. The reference range was not used to interpret this result as normal/abnormal . RBC (test code = 4.71 See_Comment [Automated 707-0) message] The sy stem which generated this [...] RDW-SD (test code = 43.3 fL 39.0-49.9 41189-1) RDW-CV (test code = 14.4 % 12.0-15.5 788-0) PLT (test code = 371 See_Comment H [Automated 777-3) message] The sy stem which generated this result transmitted reference range : 166 - 358 10*3/ ?L. The reference r doretha was not used to interpret this result as normal/abnormal . MPV (test code = 10.2 fL 9.5-12.9 07079-7) NRBC/100 WBC (test 0.0 See_Comment [Automat ed code = 6690915279) message] The system which generated this result transmitted reference range : 0.0 - 10.0 /100 WBCs. The refer ence range was not u sed to interpret th is result as normal/abnormal . NRBC x10^3 (test code See_Comment [Auto mated = 3504417542) message] The s ystem which generated this result transmitted reference range : 10*3/?L. The reference range was not used to interpret this result as normal/abnormal . GRAN MAT (NEUT) % 52.7 % (test code = 770-8) IMM GRAN % (test code 1.10 % = 4621716121) LYMPH % (test code = 36.6 % 736-9) MONO % (test code = 6.5 % 5905-5) EOS % (test code = 1.6 % 713-8) BASO % (test code = 1.5 % 706-2) GRAN MAT x10^3(ANC) 5.13 10*3/uL 1.88-7.09 (test code = 9222949866) IMM GRAN x10^3 (test 0.11 10*3/uL 0.00-0.06 H code = 1449518907) LYMPH x10^3 (test code 3.57 10*3/uL 1.32-3.29 H = 731-0) MONO x10^3 (test code 0.63 10*3/uL 0.33-0.92 = 742-7) EOS x10^3 (test code = 0.16 10*3/uL 0.03-0.39 711-2) BASO x10^3 (test code 0.15 10*3/uL 0.01-0.07 H = 704-7) Lab Interpretation Abnormal (test code = 90749-6) [facility])2022-08-26 20:35:54 Test Item Value Reference Range Interpretation Comments POCT GLU (test code = 5610505449) 400 mg/dL 70-110 H Lab Interpretation (test code = Abnormal 42953-5) [facility] Metabolic Panel (Na, K, Cl, CO2, Glucose, BUN, Creatinine, Ca)2022-06-22 03:47:00 Test Item Value Reference Range Interpretation Comments NA (test code = 136 mmol/L 135-145 9695250244) K (test code = 3.8 mmol/L 3.5-5.0 9268582446) CL (test code = 97 mmol/L 98-108 L 7071726949) CO2 TOTAL (test code = 24 mmol/L 23-31 8429108928) AGAP (test code = 2-16 5753473086) BUN (test code = 34 mg/dL 7-23 H 7957490470) GLUCOSE (test code = 270 mg/dL 70-110 H 1220760087) CREATININE (test code = 0.93 mg/dL 0.50-1.04 6769547675) CALCIUM (test code = 10.6 mg/dL 8.6-10.6 5938088857) eGFR (test code = mL/min/1.73m2 2967865398) CALVIN (test code = CALVIN) Association of [...] tests). Lab Interpretation Abnormal (test code = 25503-1) [facility] GLUCOSE (AUTOMATED)2022-06-22 03:46:00 Test Item Value Reference Range Interpretation Comments POCT GLU (test code = 9339891116) 256 mg/dL 70-110 H Lab Interpretation (test code = Abnormal 50239-3) [facility] HospitalGlycosylated Hemoglobin (A1C)2022-06-22 03:08:04 Test Item Value Reference Range Interpretation Comments HGB A1C (test code = 12.0 % 4.0-5.7 H 4548-4) CALVIN (test code = CALVIN) Reference RangesNormal: <5.7%Prediabetes: 5.7 - 6.4%Diabetes: > 6.5% Lab Interpretation (test Abnormal code = 52461-2) [facility] GLUCOSE (AUTOMATED)2022-06-22 02:44:02 Test Item Value Reference Range Interpretation Comments POCT GLU (test code = 6636799367) 265 mg/dL 70-110 H Lab Interpretation (test code = Abnormal 14832-4) [facility] GLUCOSE(AGE >30DAYS)2022-06-22 02:39:00 Test Item Value Reference Range Interpretation Comments POCT Glu (age>30days) (test code = 265 mg/dL 70-110 A 3342) Lab Interpretation (test code = Abnormal 79874-7) [facility] HospitalMagnesium [id number] 02:25:21 Test Item Value Reference Range Interpretation Comments MAGNESIUM (test code = 7612418990) 1.5 mg/dL 1.7-2.4 L Lab Interpretation (test code = Abnormal 55454-3) [facility] HospitalPhosphorus [id number] 02:25:01 Test Item Value Reference Range Interpretation Comments PHOSPHORUS (test code = 9675466711) 5.7 mg/dL 2.5-5.0 H Lab Interpretation (test code = Abnormal 07389-7) [facility]2022-06-22 01:44:15 Test Item Value Reference Range Interpretation Comments POCT GLU (test code = 4591098823) 298 mg/dL 70-110 H Lab Interpretation (test code = Abnormal 58224-4) [facility] HospitalCB WITH [id number] 01:28:41 Test Item Value Reference Range Interpretation Comments WBC (test code = See_Comment [Automated 6690-2) message] The sy stem which generated this result transmitted reference range : 4.30 - 11.10 10*3/?L. The reference range was not used to interpret this result as normal/abnormal . RBC (test code = See_Comment H [Automated 039-8) message] The sy stem which generated this [...] (test code = 37.1 fL 39.0-49.9 L 32533-1) RDW-CV (test code = 12.5 % 12.0-15.5 788-0) PLT (test code = See_Comment [Automated 777-3) message] The sy stem which generated this result transmitted reference range : 166 - 358 10*3/ ?L. The reference r doretha was not used to interpret this result as normal/abnormal . MPV (test code = 9.9 fL 9.5-12.9 45943-6) NRBC/100 WBC (test See_Comment [Automat ed code = 3183119912) message] The system which generated this result transmitted reference range : 0.0 - 10.0 /100 WBCs. The refer ence range was not u sed to interpret th is result as normal/abnormal . NRBC x10^3 (test code See_Comment [Auto mated = 1893069652) message] The s ystem which generated this result transmitted reference range : 10*3/?L. The reference range was not used to interpret this result as normal/abnormal . GRAN MAT (NEUT) % 40.5 % (test code = 770-8) IMM GRAN % (test code 0.90 % = 0080071758) LYMPH % (test code = 48.0 % 736-9) MONO % (test code = 8.5 % 5905-5) EOS % (test code = 1.1 % 713-8) BASO % (test code = 1.0 % 706-2) GRAN MAT x10^3(ANC) 4.35 10*3/uL 1.88-7.09 (test code = 3074785382) IMM GRAN x10^3 (test 0.10 10*3/uL 0.00-0.06 H code = 9779601190) LYMPH x10^3 (test code 5.17 10*3/uL 1.32-3.29 H = 731-0) MONO x10^3 (test code 0.92 10*3/uL 0.33-0.92 = 742-7) EOS x10^3 (test code = 0.12 10*3/uL 0.03-0.39 711-2) BASO x10^3 (test code 0.11 10*3/uL 0.01-0.07 H = 704-7) Lab Interpretation Abnormal (test code = 65017-6) [id number] Test Item Value Reference Interpretation Comments Range TROPONIN I (test 0.000 ng/mL See_Comment [Automated code = 1271076159) message] The system which generated this result [...] biotin. Lab Interpretation Normal (test code = 62292-3) [facility] HospitalN-TERMINAL [id number] 00:31:09 Test Item Value Reference Range Interpretation Comments NT-proBNP (test code 21 pg/mL See_Comment [Autom ated = 6754009630) message] The system which generated this result transmitted reference range : <=125. The reference range was not used to interpret this result as normal/abnormal . CALVIN (test code = CALVIN) Biotin has been reported to cause a negative bias, interpret results relative to patient's use of biotin. Lab Interpretation Normal (test code = 99123-1) [facility]BAS[facility] MET[facility]OLIC PANEL (NA, K, CL, CO2, GLUCOSE, BUN, CREATININE, CA)2022-06-22 00:22:03 Test Item Value Reference Range Interpretation Comments NA (test code = 133 mmol/L 135-145 L 1709739551) K (test code = 4.7 mmol/L 3.5-5.0 2343077744) CL (test code = 91 mmol/L 98-108 L 4943187789) CO2 TOTAL (test code = 24 mmol/L 23-31 9161213913) AGAP (test code = 2-16 H 8281486044) BUN (test code = 37 mg/dL 7-23 H 8466854239) GLUCOSE (test code = 385 mg/dL 70-110 H 5212275885) CREATININE (test code = 1.09 mg/dL 0.50-1.04 H 1935077680) CALCIUM (test code = 11.5 mg/dL 8.6-10.6 H 3834315007) eGFR (test code = mL/min/1.73m2 6844439020) CALVIN (test code = CALVIN) Association of [...] tests). Lab Interpretation Abnormal (test code = 33328-3) [facility] HospitalCOMPREHENSIVE METABOLIC [id number] 00:00:00 Test Item Value Reference Range Interpretation Comments GLUCOSE (test code = 2217) 259 MG/DL BUN (test code = 2208) 17 MG/DL CREATININE (test code = 2214) 0.72 MG/DL eGFR (2020 CKD-EPI) (test 106 ML/MIN/1.73 code = 56205) CALC BUN/CREAT (test code = 24 RATIO [...] code = 2219) 38 U/L COMPREHENSIVE METABOLIC [id number] 00:00:00 Test Item Value Reference Range Interpretation Comments GLUCOSE (test code = 2217) 259 MG/DL BUN (test code = 2208) 17 MG/DL CREATININE (test code = 2214) 0.72 MG/DL eGFR (2020 CKD-EPI) (test 106 ML/MIN/1.73 code = 64891) CALC BUN/CREAT (test code = 24 RATIO [...] (test code = 2219) 38 U/L LIPID [id number] 00:00:00 Test Item Value Reference Range Interpretation Comments CHOLESTEROL (test code = 2210) 196 MG/DL TRIGLYCERIDES (test code = 2232) 500 MG/DL HDL CHOLESTEROL (test code = 31 MG/DL 2220) CALC LDL CHOL (test code = 2237) (NOTE) MG/DL RISK RATIO LDL/HDL (test code = (NOTE) RATIO 2238) LIPID [id number] 00:00:00 Test Item Value Reference Range Interpretation Comments CHOLESTEROL (test code = 2210) 196 MG/DL TRIGLYCERIDES (test code = 2232) 500 MG/DL HDL CHOLESTEROL (test code = 31 MG/DL 2220) CALC LDL CHOL (test code = 2237) (NOTE) MG/DL RISK RATIO LDL/HDL (test code = (NOTE) RATIO 2238) HEMOGLOBIN [id number] 00:00:00 Test Item Value Reference Range Interpretation Comments HEMOGLOBIN A1c (test code = 54433) 11.0 % HEMOGLOBIN [id number] 00:00:00 Test Item Value Reference Range Interpretation Comments HEMOGLOBIN A1c (test code = 28851) 11.0 % HEMOGLOBIN [id number] 00:00:00 Test Item Value Reference Range Interpretation Comments HEMOGLOBIN A1c (test code = 50413) 11.0 % COMPREHENSIVE METABOLIC [id number] 00:00:00 Test Item Value Reference Range Interpretation Comments GLUCOSE (test code = 2217) 259 MG/DL BUN (test code = 2208) 17 MG/DL CREATININE (test code = 2214) 0.72 MG/DL eGFR (2020 CKD-EPI) (test 106 ML/MIN/1.73 code = 30087) CALC BUN/CREAT (test code = 24 RATIO [...] code = 2219) 38 U/L COMPREHENSIVE METABOLIC [id number] 00:00:00 Test Item Value Reference Range Interpretation Comments GLUCOSE (test code = 2217) 259 MG/DL BUN (test code = 2208) 17 MG/DL CREATININE (test code = 2214) 0.72 MG/DL eGFR (2020 CKD-EPI) (test 106 ML/MIN/1.73 code = 26591) CALC BUN/CREAT (test code = 24 RATIO [...] (test code = 2219) 38 U/L LIPID [id number] 00:00:00 Test Item Value Reference Range Interpretation Comments CHOLESTEROL (test code = 2210) 196 MG/DL TRIGLYCERIDES (test code = 2232) 500 MG/DL HDL CHOLESTEROL (test code = 31 MG/DL 0) CALC LDL CHOL (test code = 2237) (NOTE) MG/DL RISK RATIO LDL/HDL (test code = (NOTE) RATIO 2238) LIPID [id number] 00:00:00 Test Item Value Reference Range Interpretation Comments CHOLESTEROL (test code = 2210) 196 MG/DL TRIGLYCERIDES (test code = 2232) 500 MG/DL HDL CHOLESTEROL (test code = 31 MG/DL 2220) CALC LDL CHOL (test code = 2237) (NOTE) MG/DL RISK RATIO LDL/HDL (test code = (NOTE) RATIO 2238) HEMOGLOBIN [id number] 00:00:00 Test Item Value Reference Range Interpretation Comments HEMOGLOBIN A1c (test code = 61437) 11.0 % HEMOGLOBIN [id number] 00:00:00 Test Item Value Reference Range Interpretation Comments HEMOGLOBIN A1c (test code = 79111) 11.0 % HEMOGLOBIN [id number] 00:00:00 Test Item Value Reference Range Interpretation Comments HEMOGLOBIN A1c (test code = 42070) 11.0 % COMPREHENSIVE METABOLIC [id number] 00:00:00 Test Item Value Reference Range Interpretation Comments GLUCOSE (test code = 2217) 259 MG/DL BUN (test code = 2208) 17 MG/DL CREATININE (test code = 2214) 0.72 MG/DL eGFR (2020 CKD-EPI) (test 106 ML/MIN/1.73 code = 14285) CALC BUN/CREAT (test code = 24 RATIO [...] code = 2219) 38 U/L COMPREHENSIVE METABOLIC [id number] 00:00:00 Test Item Value Reference Range Interpretation Comments GLUCOSE (test code = 2217) 259 MG/DL BUN (test code = 2208) 17 MG/DL CREATININE (test code = 2214) 0.72 MG/DL eGFR (2020 CKD-EPI) (test 106 ML/MIN/1.73 code = 08249) CALC BUN/CREAT (test code = 24 RATIO [...] (test code = 2219) 38 U/L LIPID [id number] 00:00:00 Test Item Value Reference Range Interpretation Comments CHOLESTEROL (test code = 2210) 196 MG/DL TRIGLYCERIDES (test code = 2232) 500 MG/DL HDL CHOLESTEROL (test code = 31 MG/DL 2220) CALC LDL CHOL (test code = 2237) (NOTE) MG/DL RISK RATIO LDL/HDL (test code = (NOTE) RATIO 2238) LIPID [id number] 00:00:00 Test Item Value Reference Range Interpretation Comments CHOLESTEROL (test code = 2210) 196 MG/DL TRIGLYCERIDES (test code = 2232) 500 MG/DL HDL CHOLESTEROL (test code = 31 MG/DL 2220) CALC LDL CHOL (test code = 2237) (NOTE) MG/DL RISK RATIO LDL/HDL (test code = (NOTE) RATIO 2238) HEMOGLOBIN [id number] 00:00:00 Test Item Value Reference Range Interpretation Comments HEMOGLOBIN A1c (test code = 69103) 11.0 % HEMOGLOBIN [id number] 00:00:00 Test Item Value Reference Range Interpretation Comments HEMOGLOBIN A1c (test code = 92743) 11.0 % HEMOGLOBIN [id number] 00:00:00 Test Item Value Reference Range Interpretation Comments HEMOGLOBIN A1c (test code = 44471) 11.0 % COMPREHENSIVE METABOLIC [id number] 00:00:00 Test Item Value Reference Range Interpretation Comments GLUCOSE (test code = 2217) 259 MG/DL BUN (test code = 2208) 17 MG/DL CREATININE (test code = 2214) 0.72 MG/DL eGFR (2020 CKD-EPI) (test 106 ML/MIN/1.73 code = 18482) CALC BUN/CREAT (test code = 24 RATIO [...] code = 2219) 38 U/L COMPREHENSIVE METABOLIC [id number] 00:00:00 Test Item Value Reference Range Interpretation Comments GLUCOSE (test code = 2217) 259 MG/DL BUN (test code = 2208) 17 MG/DL CREATININE (test code = 2214) 0.72 MG/DL eGFR (2020 CKD-EPI) (test 106 ML/MIN/1.73 code = 02959) CALC BUN/CREAT (test code = 24 RATIO [...] (test code = 2219) 38 U/L LIPID [id number] 00:00:00 Test Item Value Reference Range Interpretation Comments CHOLESTEROL (test code = 2210) 196 MG/DL TRIGLYCERIDES (test code = 2232) 500 MG/DL HDL CHOLESTEROL (test code = 31 MG/DL 2220) CALC LDL CHOL (test code = 2237) (NOTE) MG/DL RISK RATIO LDL/HDL (test code = (NOTE) RATIO 2238) LIPID [id number] 00:00:00 Test Item Value Reference Range Interpretation Comments CHOLESTEROL (test code = 2210) 196 MG/DL TRIGLYCERIDES (test code = 2232) 500 MG/DL HDL CHOLESTEROL (test code = 31 MG/DL 2220) CALC LDL CHOL (test code = 2237) (NOTE) MG/DL RISK RATIO LDL/HDL (test code = (NOTE) RATIO 2238) HEMOGLOBIN [id number] 00:00:00 Test Item Value Reference Range Interpretation Comments HEMOGLOBIN A1c (test code = 53956) 11.0 % HEMOGLOBIN [id number] 00:00:00 Test Item Value Reference Range Interpretation Comments HEMOGLOBIN A1c (test code = 12975) 11.0 % HEMOGLOBIN [id number] 00:00:00 Test Item Value Reference Range Interpretation Comments HEMOGLOBIN A1c (test code = 11173) 11.0 % VAGINAL PATHOGENS DNA [id number] 15:33:03 Test Item Value Reference Range Interpretation Comments ANDIE SPECIES (test NEGATIVE NEGATIVE code = ) G. VAGINALIS (test NEGATIVE NEGATIVE code = 01747) T. VAGINALIS (test NEGATIVE NEGATIVE UNLESS O THERWISE code = ) INDICATED, ALL TESTING PERFORMED [facility] PATHOLOGY [facility] [address] [place] [address] 4 LABORATORY DIRE CTOR: NOAH TODD M.D. CLIA NUMBER [id number] [facility] [place]. [id number] VAGINAL PATHOGENS DNA [id number] 00:00:00 Test Item Value Reference Range Interpretation Comments ANDIE SPECIES (test code = 30475) NEGATIVE G. VAGINALIS (test code = 56147) NEGATIVE T. VAGINALIS (test code = 99895) NEGATIVE VAGINAL PATHOGENS DNA [id number] 00:00:00 Test Item Value Reference Range Interpretation Comments ANDIE SPECIES (test code = 61644) NEGATIVE G. VAGINALIS (test code = 47379) NEGATIVE T. VAGINALIS (test code = 97374) NEGATIVE VAGINAL PATHOGENS DNA [id number] 00:00:00 Test Item Value Reference Range Interpretation Comments ANDIE SPECIES (test code = 62313) NEGATIVE G. VAGINALIS (test code = 21068) NEGATIVE T. VAGINALIS (test code = 36212) NEGATIVE VAGINAL PATHOGENS DNA [id number] 00:00:00 Test Item Value Reference Range Interpretation Comments ANDIE SPECIES (test code = 86378) NEGATIVE G. VAGINALIS (test code = 75800) NEGATIVE T. VAGINALIS (test code = 44208) NEGATIVE VAGINAL PATHOGENS DNA [id number] 00:00:00 Test Item Value Reference Range Interpretation Comments ANDIE SPECIES (test code = 83929) NEGATIVE G. VAGINALIS (test code = 08802) NEGATIVE T. VAGINALIS (test code = 57353) NEGATIVE VAGINAL PATHOGENS DNA [id number] 00:00:00 Test Item Value Reference Range Interpretation Comments ANDIE SPECIES (test code = 77505) NEGATIVE G. VAGINALIS (test code = 50611) NEGATIVE T. VAGINALIS (test code = 17956) NEGATIVE VAGINAL PATHOGENS DNA [id number] 00:00:00 Test Item Value Reference Range Interpretation Comments ANDIE SPECIES (test code = 15524) NEGATIVE G. VAGINALIS (test code = 33330) NEGATIVE T. VAGINALIS (test code = 97969) NEGATIVE VAGINAL PATHOGENS DNA [id number] 00:00:00 Test Item Value Reference Range Interpretation Comments ANDIE SPECIES (test code = 40288) NEGATIVE G. VAGINALIS (test code = 85949) NEGATIVE T. VAGINALIS (test code = 07389) NEGATIVE VAGINAL PATHOGENS DNA [id number] 00:00:00 Test Item Value Reference Range Interpretation Comments ANDIE SPECIES (test code = 84911) NEGATIVE G. VAGINALIS (test code = 00251) NEGATIVE T. VAGINALIS (test code = 33703) NEGATIVE VAGINAL PATHOGENS DNA [id number] 00:00:00 Test Item Value Reference Range Interpretation Comments ANDIE SPECIES (test code = 60157) NEGATIVE G. VAGINALIS (test code = 19191) NEGATIVE T. VAGINALIS (test code = 84868) NEGATIVE CULTURE, [id number] 14:55:44SPECIMEN NUMBER: [id number] CULTURE, URINE SPECIMEN NUMBER: [id number] SPECIMEN COMMENT: URINE SOURCE: URINE REPORT STATUS: FINAL FINAL REPORT: 04/11/2022 <10,000 CFU/ML UROGENITAL NORMA PRESENT NO CO MMON PATHOGENSCULTURE, [id number] 00:00:00 Test Item Value Reference Range Interpretation Comments CULTURE, URINE (test SPECIMEN NUMBER: code = 04846) [id number] CULTURE, [id number] 00:00:00 Test Item Value Reference Range Interpretation Comments CULTURE, URINE (test SPECIMEN NUMBER: code = 21686) [id number] CULTURE, [id number] 00:00:00 Test Item Value Reference Range Interpretation Comments CULTURE, URINE (test SPECIMEN NUMBER: code = 47683) [id number] CULTURE, [id number] 00:00:00 Test Item Value Reference Range Interpretation Comments CULTURE, URINE (test SPECIMEN NUMBER: code = 31560) [id number] CULTURE, [id number] 00:00:00 Test Item Value Reference Range Interpretation Comments CULTURE, URINE (test SPECIMEN NUMBER: code = 23037) [id number] CULTURE, [id number] 00:00:00 Test Item Value Reference Range Interpretation Comments CULTURE, URINE (test SPECIMEN NUMBER: code = 93143) [id number] CULTURE, [id number] 00:00:00 Test Item Value Reference Range Interpretation Comments CULTURE, URINE (test SPECIMEN NUMBER: code = 60792) [id number] CULTURE, [id number] 00:00:00 Test Item Value Reference Range Interpretation Comments CULTURE, URINE (test SPECIMEN NUMBER: code = 82065) [id number] CULTURE, [id number] 00:00:00 Test Item Value Reference Range Interpretation Comments CULTURE, URINE (test SPECIMEN NUMBER: code = 84017) [id number] CULTURE, [id number] 00:00:00 Test Item Value Reference Range Interpretation Comments CULTURE, URINE (test SPECIMEN NUMBER: code = 44620) [id number] CULTURE, [id number] 00:00:00 Test Item Value Reference Range Interpretation Comments CULTURE, URINE (test SPECIMEN NUMBER: code = 65138) [id number] CULTURE, [id number] 00:00:00 Test Item Value Reference Range Interpretation Comments CULTURE, URINE (test SPECIMEN NUMBER: code = 25039) [id number] CULTURE, [id number] 00:00:00 Test Item Value Reference Range Interpretation Comments CULTURE, URINE (test SPECIMEN NUMBER: code = 73173) [id number] CULTURE, [id number] 00:00:00 Test Item Value Reference Range Interpretation Comments CULTURE, URINE (test SPECIMEN NUMBER: code = 52734) [id number] CBC W/AUTO DIFF WITH [id number] 02:13:01 Test Item Value Reference Range Interpretation [...] message] code = 1065) WBC'S The system [employer] generated this result transmitted ref erence range: [...] 0.00-0.11 UNLESS O THERWISE (test code = 27551) INDICATE D, ALL TESTING PERFORM ED ATCLINICAL PATH [facility], [facility]. [address] [place] [address] [facility] DIRECTOR: NOAH DICKENS M.D. CLIA NUMBER [id number] CAP ACCREDITATION N O. [id number] CBC W/AUTO [id number] 00:00:00 Test Item Value Reference Range Interpretation [...] NUCLEATED RBCS (test code = 0.00 K/UL 57039) CBC W/AUTO [id number] 00:00:00 Test Item Value Reference Range Interpretation [...] NUCLEATED RBCS (test code = 0.00 K/UL 32983) CBC W/AUTO [id number] 00:00:00 Test Item Value Reference Range Interpretation [...] NUCLEATED RBCS (test code = 0.00 K/UL 74848) CBC W/AUTO [id number] 00:00:00 Test Item Value Reference Range Interpretation [...] NUCLEATED RBCS (test code = 0.00 K/UL 29492) CBC W/AUTO [id number] 00:00:00 Test Item Value Reference Range Interpretation [...] NUCLEATED RBCS (test code = 0.00 K/UL 68076) CBC W/AUTO [id number] 00:00:00 Test Item Value Reference Range Interpretation [...] NUCLEATED RBCS (test code = 0.00 K/UL 13427) CBC W/AUTO [id number] 00:00:00 Test Item Value Reference Range Interpretation [...] NUCLEATED RBCS (test code = 0.00 K/UL 51244) CBC W/AUTO [id number] 00:00:00 Test Item Value Reference Range Interpretation [...] NUCLEATED RBCS (test code = 0.00 K/UL 70608) CBC W/AUTO [id number] 00:00:00 Test Item Value Reference Range Interpretation [...] NUCLEATED RBCS (test code = 0.00 K/UL 85874) CBC W/AUTO [id number] 00:00:00 Test Item Value Reference Range Interpretation [...] NUCLEATED RBCS (test code = 0.00 K/UL 66084) CBC W/AUTO [id number] 00:00:00 Test Item Value Reference Range Interpretation [...] NUCLEATED RBCS (test code = 0.00 K/UL 62399) CBC W/AUTO [id number] 00:00:00 Test Item Value Reference Range Interpretation [...] NUCLEATED RBCS (test code = 0.00 K/UL 67557) CBC W/AUTO [id number] 00:00:00 Test Item Value Reference Range Interpretation [...] NUCLEATED RBCS (test code = 0.00 K/UL 58901) CBC W/AUTO [id number] 00:00:00 Test Item Value Reference Range Interpretation [...] NUCLEATED RBCS (test code = 0.00 K/UL 95107) CBC W/AUTO [id number] 00:00:00 Test Item Value Reference Range Interpretation [...] NUCLEATED RBCS (test code = 0.00 K/UL 87136) CBC W/AUTO [id number] 00:00:00 Test Item Value Reference Range Interpretation [...] NUCLEATED RBCS (test code = 0.00 K/UL 98892) CBC W/AUTO [id number] 00:00:00 Test Item Value Reference Range Interpretation [...] NUCLEATED RBCS (test code = 0.00 K/UL 81156) CBC W/AUTO [id number] 00:00:00 Test Item Value Reference Range Interpretation [...] NUCLEATED RBCS (test code = 0.00 K/UL 56920) CBC W/AUTO [id number] 00:00:00 Test Item Value Reference Range Interpretation [...] NUCLEATED RBCS (test code = 0.00 K/UL 59024) CBC W/AUTO [id number] 00:00:00 Test Item Value Reference Range Interpretation [...] NUCLEATED RBCS (test code = 0.00 K/UL 68170) CBC W/AUTO [id number] 00:00:00 Test Item Value Reference Range Interpretation [...] NUCLEATED RBCS (test code = 0.00 K/UL 13060) COMPREHENSIVE METABOLIC [id number] 04:26:32 Test Item Value Reference Range Interpretation Comments GLUCOSE (test code = 122 MG/DL 70-99 H 2216) BUN (test code = 11 MG/DL 6-20 2207) CREATININE (test 0.65 MG/DL 0.60-1.30 code = 2214) eGFR (2020 CKD-EPI) 111 >60 (test code = 18397) ML/MIN/1.73 CALC BUN/CREAT (test 17 RATIO 6-28 code = 2235) SODIUM (test code = 145 MEQ/L 070-189 5088) POTASSIUM (test code 4.2 MEQ/L 3.5-5.4 = 2227) CHLORIDE (test code 107 MEQ/L 95-107 = 221) CARBON DIOXIDE (test 26 MEQ/L 19-31 code [...] [Automated message] (test code = 2207) The [employer] which generated this result transmit faith reference range : <=1.2. The refe rence range was not u sed to interpret th is result as normal/abnormal . ALKALINE PHOSPHATASE 62 U/L 40-115 (test code = 2203) AST (test code = 24 U/L 9-40 2217) ALT (test code = 38 U/L 5-40 2218) LIPID [id number] 04:26:32 Test Item Value Reference Range Interpretation [...] MOREINFORMATION , SEE CLIENT ANNOUNCE MENT AT [email or web address] RISK RATIO LDL/HDL 2.84 RATIO <3.22 (test code = 2238) HEMOGLOBIN [id number] 04:03:31 Test Item Value Reference Range Interpretation Comments HEMOGLOBIN A1c (test 10.9 % 4.2-5.6 H AMERIC AN DIABETES code = 37912) ASSOCIATION [employer] FOR HGB A1C: PREDIABETES/INC REASED [...] INDICATED, ALL TESTING PER FORMED ATCLINICAL PATH [facility] [place] [address] [place] [address] LABORATORY DIRE CTOR: Carlos Enrique BERNARD. CLIA NUMBER [id number] CAP ACCREDITATION N O. [id number] COMPREHENSIVE METABOLIC [id number] 00:00:00 Test Item Value Reference Range Interpretation Comments GLUCOSE (test code = 2217) 122 MG/DL BUN (test code = 2208) 11 MG/DL CREATININE (test code = 2214) 0.65 MG/DL eGFR (2020 CKD-EPI) (test 111 ML/MIN/1.73 code = 61811) CALC BUN/CREAT (test code = 17 RATIO [...] code = 2219) 38 U/L COMPREHENSIVE METABOLIC [id number] 00:00:00 Test Item Value Reference Range Interpretation Comments GLUCOSE (test code = 2217) 122 MG/DL BUN (test code = 2208) 11 MG/DL CREATININE (test code = 2214) 0.65 MG/DL eGFR (2020 CKD-EPI) (test 111 ML/MIN/1.73 code = 54131) CALC BUN/CREAT (test code = 17 RATIO [...] (test code = 2219) 38 U/L LIPID [id number] 00:00:00 Test Item Value Reference Range Interpretation Comments CHOLESTEROL (test code = 2210) 169 MG/DL TRIGLYCERIDES (test code = 2232) 346 MG/DL HDL CHOLESTEROL (test code = 2220) 32 MG/DL CALC LDL CHOL (test code = 2237) 91 MG/DL RISK RATIO LDL/HDL (test code = 2.84 RATIO 2238) LIPID [id number] 00:00:00 Test Item Value Reference Range Interpretation Comments CHOLESTEROL (test code = 2210) 169 MG/DL TRIGLYCERIDES (test code = 2232) 346 MG/DL HDL CHOLESTEROL (test code = 2220) 32 MG/DL CALC LDL CHOL (test code = 2237) 91 MG/DL RISK RATIO LDL/HDL (test code = 2.84 RATIO 2238) HEMOGLOBIN [id number] 00:00:00 Test Item Value Reference Range Interpretation Comments HEMOGLOBIN A1c (test code = 13603) 10.9 % HEMOGLOBIN [id number] 00:00:00 Test Item Value Reference Range Interpretation Comments HEMOGLOBIN A1c (test code = 23746) 10.9 % HEMOGLOBIN [id number] 00:00:00 Test Item Value Reference Range Interpretation Comments HEMOGLOBIN A1c (test code = 10422) 10.9 % COMPREHENSIVE METABOLIC [id number] 00:00:00 Test Item Value Reference Range Interpretation Comments GLUCOSE (test code = 2217) 122 MG/DL BUN (test code = 2208) 11 MG/DL CREATININE (test code = 2214) 0.65 MG/DL eGFR (2020 CKD-EPI) (test 111 ML/MIN/1.73 code = 54100) CALC BUN/CREAT (test code = 17 RATIO [...] code = 2219) 38 U/L COMPREHENSIVE METABOLIC [id number] 00:00:00 Test Item Value Reference Range Interpretation Comments GLUCOSE (test code = 2217) 122 MG/DL BUN (test code = 2208) 11 MG/DL CREATININE (test code = 2214) 0.65 MG/DL eGFR (2020 CKD-EPI) (test 111 ML/MIN/1.73 code = 26192) CALC BUN/CREAT (test code = 17 RATIO [...] (test code = 2219) 38 U/L LIPID [id number] 00:00:00 Test Item Value Reference Range Interpretation Comments CHOLESTEROL (test code = 2210) 169 MG/DL TRIGLYCERIDES (test code = 2232) 346 MG/DL HDL CHOLESTEROL (test code = 2220) 32 MG/DL CALC LDL CHOL (test code = 2237) 91 MG/DL RISK RATIO LDL/HDL (test code = 2.84 RATIO 2238) LIPID [id number] 00:00:00 Test Item Value Reference Range Interpretation Comments CHOLESTEROL (test code = 2210) 169 MG/DL TRIGLYCERIDES (test code = 2232) 346 MG/DL HDL CHOLESTEROL (test code = 2220) 32 MG/DL CALC LDL CHOL (test code = 2237) 91 MG/DL RISK RATIO LDL/HDL (test code = 2.84 RATIO 2238) HEMOGLOBIN [id number] 00:00:00 Test Item Value Reference Range Interpretation Comments HEMOGLOBIN A1c (test code = 20768) 10.9 % HEMOGLOBIN [id number] 00:00:00 Test Item Value Reference Range Interpretation Comments HEMOGLOBIN A1c (test code = 38165) 10.9 % HEMOGLOBIN [id number] 00:00:00 Test Item Value Reference Range Interpretation Comments HEMOGLOBIN A1c (test code = 35744) 10.9 % COMPREHENSIVE METABOLIC [id number] 00:00:00 Test Item Value Reference Range Interpretation Comments GLUCOSE (test code = 2217) 122 MG/DL BUN (test code = 2208) 11 MG/DL CREATININE (test code = 2214) 0.65 MG/DL eGFR (2020 CKD-EPI) (test 111 ML/MIN/1.73 code = 73262) CALC BUN/CREAT (test code = 17 RATIO 5) SODIUM (test code = 2231) 145 MEQ/L [...] code = 2219) 38 U/L COMPREHENSIVE METABOLIC [id number] 00:00:00 Test Item Value Reference Range Interpretation Comments GLUCOSE (test code = 2217) 122 MG/DL BUN (test code = 2208) 11 MG/DL CREATININE (test code = 2214) 0.65 MG/DL eGFR (2020 CKD-EPI) (test 111 ML/MIN/1.73 code = 70424) CALC BUN/CREAT (test code = 17 RATIO [...] (test code = 2219) 38 U/L LIPID [id number] 00:00:00 Test Item Value Reference Range Interpretation Comments CHOLESTEROL (test code = 2210) 169 MG/DL TRIGLYCERIDES (test code = 2232) 346 MG/DL HDL CHOLESTEROL (test code = 2220) 32 MG/DL CALC LDL CHOL (test code = 2237) 91 MG/DL RISK RATIO LDL/HDL (test code = 2.84 RATIO 2238) LIPID [id number] 00:00:00 Test Item Value Reference Range Interpretation Comments CHOLESTEROL (test code = 2210) 169 MG/DL TRIGLYCERIDES (test code = 2232) 346 MG/DL HDL CHOLESTEROL (test code = 2220) 32 MG/DL CALC LDL CHOL (test code = 2237) 91 MG/DL RISK RATIO LDL/HDL (test code = 2.84 RATIO 2238) HEMOGLOBIN [id number] 00:00:00 Test Item Value Reference Range Interpretation Comments HEMOGLOBIN A1c (test code = 76044) 10.9 % HEMOGLOBIN [id number] 00:00:00 Test Item Value Reference Range Interpretation Comments HEMOGLOBIN A1c (test code = 94192) 10.9 % HEMOGLOBIN [id number] 00:00:00 Test Item Value Reference Range Interpretation Comments HEMOGLOBIN A1c (test code = 40286) 10.9 % COMPREHENSIVE METABOLIC [id number] 00:00:00 Test Item Value Reference Range Interpretation Comments GLUCOSE (test code = 2217) 122 MG/DL BUN (test code = 2208) 11 MG/DL CREATININE (test code = 2214) 0.65 MG/DL eGFR (2020 CKD-EPI) (test 111 ML/MIN/1.73 code = 81122) CALC BUN/CREAT (test code = 17 RATIO [...] code = 2219) 38 U/L COMPREHENSIVE METABOLIC [id number] 00:00:00 Test Item Value Reference Range Interpretation Comments GLUCOSE (test code = 2217) 122 MG/DL BUN (test code = 2208) 11 MG/DL CREATININE (test code = 2214) 0.65 MG/DL eGFR (2020 CKD-EPI) (test 111 ML/MIN/1.73 code = 16037) CALC BUN/CREAT (test code = 17 RATIO [...] (test code = 2219) 38 U/L LIPID [id number] 00:00:00 Test Item Value Reference Range Interpretation Comments CHOLESTEROL (test code = 2210) 169 MG/DL TRIGLYCERIDES (test code = 2232) 346 MG/DL HDL CHOLESTEROL (test code = 2220) 32 MG/DL CALC LDL CHOL (test code = 2237) 91 MG/DL RISK RATIO LDL/HDL (test code = 2.84 RATIO 2238) LIPID [id number] 00:00:00 Test Item Value Reference Range Interpretation Comments CHOLESTEROL (test code = 2210) 169 MG/DL TRIGLYCERIDES (test code = 2232) 346 MG/DL HDL CHOLESTEROL (test code = 2220) 32 MG/DL CALC LDL CHOL (test code = 2237) 91 MG/DL RISK RATIO LDL/HDL (test code = 2.84 RATIO 2238) HEMOGLOBIN [id number] 00:00:00 Test Item Value Reference Range Interpretation Comments HEMOGLOBIN A1c (test code = 15967) 10.9 % HEMOGLOBIN [id number] 00:00:00 Test Item Value Reference Range Interpretation Comments HEMOGLOBIN A1c (test code = 87841) 10.9 % HEMOGLOBIN [id number] 00:00:00 Test Item Value Reference Range Interpretation Comments HEMOGLOBIN A1c (test code = 75547) 10.9 % COMPREHENSIVE METABOLIC [id number] 00:00:00 Test Item Value Reference Range Interpretation Comments GLUCOSE (test code = 2217) 122 MG/DL BUN (test code = 2208) 11 MG/DL CREATININE (test code = 2214) 0.65 MG/DL eGFR (2020 CKD-EPI) (test 111 ML/MIN/1.73 code = 96366) CALC BUN/CREAT (test code = 17 RATIO [...] code = 2219) 38 U/L COMPREHENSIVE METABOLIC [id number] 00:00:00 Test Item Value Reference Range Interpretation Comments GLUCOSE (test code = 2217) 122 MG/DL BUN (test code = 2208) 11 MG/DL CREATININE (test code = 2214) 0.65 MG/DL eGFR (2020 CKD-EPI) (test 111 ML/MIN/1.73 code = 10637) CALC BUN/CREAT (test code = 17 RATIO [...] (test code = 2219) 38 U/L LIPID [id number] 00:00:00 Test Item Value Reference Range Interpretation Comments CHOLESTEROL (test code = 2210) 169 MG/DL TRIGLYCERIDES (test code = 2232) 346 MG/DL HDL CHOLESTEROL (test code = 2220) 32 MG/DL CALC LDL CHOL (test code = 2237) 91 MG/DL RISK RATIO LDL/HDL (test code = 2.84 RATIO 2238) LIPID [id number] 00:00:00 Test Item Value Reference Range Interpretation Comments CHOLESTEROL (test code = 2210) 169 MG/DL TRIGLYCERIDES (test code = 2232) 346 MG/DL HDL CHOLESTEROL (test code = 2220) 32 MG/DL CALC LDL CHOL (test code = 2237) 91 MG/DL RISK RATIO LDL/HDL (test code = 2.84 RATIO 2238) HEMOGLOBIN [id number] 00:00:00 Test Item Value Reference Range Interpretation Comments HEMOGLOBIN A1c (test code = 94129) 10.9 % HEMOGLOBIN [id number] 00:00:00 Test Item Value Reference Range Interpretation Comments HEMOGLOBIN A1c (test code = 58386) 10.9 % HEMOGLOBIN [id number] 00:00:00 Test Item Value Reference Range Interpretation Comments HEMOGLOBIN A1c (test code = 75444) 10.9 % COMPREHENSIVE METABOLIC [id number] 00:00:00 Test Item Value Reference Range Interpretation Comments GLUCOSE (test code = 2217) 122 MG/DL BUN (test code = 2208) 11 MG/DL CREATININE (test code = 2214) 0.65 MG/DL eGFR (2020 CKD-EPI) (test 111 ML/MIN/1.73 code = 29373) CALC BUN/CREAT (test code = 17 RATIO [...] code = 2219) 38 U/L COMPREHENSIVE METABOLIC [id number] 00:00:00 Test Item Value Reference Range Interpretation Comments GLUCOSE (test code = 2217) 122 MG/DL BUN (test code = 2208) 11 MG/DL CREATININE (test code = 2214) 0.65 MG/DL eGFR (2020 CKD-EPI) (test 111 ML/MIN/1.73 code = 37807) CALC BUN/CREAT (test code = 17 RATIO [...] (test code = 2219) 38 U/L LIPID [id number] 00:00:00 Test Item Value Reference Range Interpretation Comments CHOLESTEROL (test code = 2210) 169 MG/DL TRIGLYCERIDES (test code = 2232) 346 MG/DL HDL CHOLESTEROL (test code = 2220) 32 MG/DL CALC LDL CHOL (test code = 2237) 91 MG/DL RISK RATIO LDL/HDL (test code = 2.84 RATIO 2238) LIPID [id number] 00:00:00 Test Item Value Reference Range Interpretation Comments CHOLESTEROL (test code = 2210) 169 MG/DL TRIGLYCERIDES (test code = 2232) 346 MG/DL HDL CHOLESTEROL (test code = 2220) 32 MG/DL CALC LDL CHOL (test code = 2237) 91 MG/DL RISK RATIO LDL/HDL (test code = 2.84 RATIO 2238) HEMOGLOBIN [id number] 00:00:00 Test Item Value Reference Range Interpretation Comments HEMOGLOBIN A1c (test code = 82830) 10.9 % HEMOGLOBIN [id number] 00:00:00 Test Item Value Reference Range Interpretation Comments HEMOGLOBIN A1c (test code = 62801) 10.9 % HEMOGLOBIN [id number] 00:00:00 Test Item Value Reference Range Interpretation Comments HEMOGLOBIN A1c (test code = 54187) 10.9 % COMPREHENSIVE METABOLIC [id number] 00:00:00 Test Item Value Reference Range Interpretation Comments GLUCOSE (test code = 2217) 122 MG/DL BUN (test code = 2208) 11 MG/DL CREATININE (test code = 2214) 0.65 MG/DL eGFR (2020 CKD-EPI) (test 111 ML/MIN/1.73 code = 75028) CALC BUN/CREAT (test code = 17 RATIO [...] code = 2219) 38 U/L COMPREHENSIVE METABOLIC [id number] 00:00:00 Test Item Value Reference Range Interpretation Comments GLUCOSE (test code = 2217) 122 MG/DL BUN (test code = 2208) 11 MG/DL CREATININE (test code = 2214) 0.65 MG/DL eGFR (2020 CKD-EPI) (test 111 ML/MIN/1.73 code = 33382) CALC BUN/CREAT (test code = 17 RATIO [...] (test code = 2219) 38 U/L LIPID [id number] 00:00:00 Test Item Value Reference Range Interpretation Comments CHOLESTEROL (test code = 2210) 169 MG/DL TRIGLYCERIDES (test code = 2232) 346 MG/DL HDL CHOLESTEROL (test code = 2220) 32 MG/DL CALC LDL CHOL (test code = 2237) 91 MG/DL RISK RATIO LDL/HDL (test code = 2.84 RATIO 2238) LIPID [id number] 00:00:00 Test Item Value Reference Range Interpretation Comments CHOLESTEROL (test code = 2210) 169 MG/DL TRIGLYCERIDES (test code = 2232) 346 MG/DL HDL CHOLESTEROL (test code = 2220) 32 MG/DL CALC LDL CHOL (test code = 2237) 91 MG/DL RISK RATIO LDL/HDL (test code = 2.84 RATIO 2238) HEMOGLOBIN [id number] 00:00:00 Test Item Value Reference Range Interpretation Comments HEMOGLOBIN A1c (test code = 83798) 10.9 % HEMOGLOBIN [id number] 00:00:00 Test Item Value Reference Range Interpretation Comments HEMOGLOBIN A1c (test code = 69632) 10.9 % HEMOGLOBIN [id number] 00:00:00 Test Item Value Reference Range Interpretation Comments HEMOGLOBIN A1c (test code = 22291) 10.9 % COMPREHENSIVE METABOLIC [id number] 00:00:00 Test Item Value Reference Range Interpretation Comments GLUCOSE (test code = 2217) 122 MG/DL BUN (test code = 2208) 11 MG/DL CREATININE (test code = 2214) 0.65 MG/DL eGFR (2020 CKD-EPI) (test 111 ML/MIN/1.73 code = 30710) CALC BUN/CREAT (test code = 17 RATIO [...] code = 2219) 38 U/L COMPREHENSIVE METABOLIC [id number] 00:00:00 Test Item Value Reference Range Interpretation Comments GLUCOSE (test code = 2217) 122 MG/DL BUN (test code = 2208) 11 MG/DL CREATININE (test code = 2214) 0.65 MG/DL eGFR (2020 CKD-EPI) (test 111 ML/MIN/1.73 code = 29884) CALC BUN/CREAT (test code = 17 RATIO [...] (test code = 2219) 38 U/L LIPID [id number] 00:00:00 Test Item Value Reference Range Interpretation Comments CHOLESTEROL (test code = 2210) 169 MG/DL TRIGLYCERIDES (test code = 2232) 346 MG/DL HDL CHOLESTEROL (test code = 2220) 32 MG/DL CALC LDL CHOL (test code = 2237) 91 MG/DL RISK RATIO LDL/HDL (test code = 2.84 RATIO 2238) LIPID [id number] 00:00:00 Test Item Value Reference Range Interpretation Comments CHOLESTEROL (test code = 2210) 169 MG/DL TRIGLYCERIDES (test code = 2232) 346 MG/DL HDL CHOLESTEROL (test code = 2220) 32 MG/DL CALC LDL CHOL (test code = 2237) 91 MG/DL RISK RATIO LDL/HDL (test code = 2.84 RATIO 2238) HEMOGLOBIN [id number] 00:00:00 Test Item Value Reference Range Interpretation Comments HEMOGLOBIN A1c (test code = 85653) 10.9 % HEMOGLOBIN [id number] 00:00:00 Test Item Value Reference Range Interpretation Comments HEMOGLOBIN A1c (test code = 95753) 10.9 % HEMOGLOBIN [id number] 00:00:00 Test Item Value Reference Range Interpretation Comments HEMOGLOBIN A1c (test code = 58592) 10.9 % COMPREHENSIVE METABOLIC [id number] 00:00:00 Test Item Value Reference Range Interpretation Comments GLUCOSE (test code = 2217) 122 MG/DL BUN (test code = 2208) 11 MG/DL CREATININE (test code = 2214) 0.65 MG/DL eGFR (2020 CKD-EPI) (test 111 ML/MIN/1.73 code = 62184) CALC BUN/CREAT (test code = 17 RATIO [...] code = 2219) 38 U/L COMPREHENSIVE METABOLIC [id number] 00:00:00 Test Item Value Reference Range Interpretation Comments GLUCOSE (test code = 2217) 122 MG/DL BUN (test code = 2208) 11 MG/DL CREATININE (test code = 2214) 0.65 MG/DL eGFR (2020 CKD-EPI) (test 111 ML/MIN/1.73 code = 96385) CALC BUN/CREAT (test code = 17 RATIO [...] (test code = 2219) 38 U/L LIPID [id number] 00:00:00 Test Item Value Reference Range Interpretation Comments CHOLESTEROL (test code = 2210) 169 MG/DL TRIGLYCERIDES (test code = 2232) 346 MG/DL HDL CHOLESTEROL (test code = 2220) 32 MG/DL CALC LDL CHOL (test code = 2237) 91 MG/DL RISK RATIO LDL/HDL (test code = 2.84 RATIO 2238) LIPID [id number] 00:00:00 Test Item Value Reference Range Interpretation Comments CHOLESTEROL (test code = 2210) 169 MG/DL TRIGLYCERIDES (test code = 2232) 346 MG/DL HDL CHOLESTEROL (test code = 2220) 32 MG/DL CALC LDL CHOL (test code = 2237) 91 MG/DL RISK RATIO LDL/HDL (test code = 2.84 RATIO 2238) HEMOGLOBIN [id number] 00:00:00 Test Item Value Reference Range Interpretation Comments HEMOGLOBIN A1c (test code = 96822) 10.9 % HEMOGLOBIN [id number] 00:00:00 Test Item Value Reference Range Interpretation Comments HEMOGLOBIN A1c (test code = 32437) 10.9 % HEMOGLOBIN [id number] 00:00:00 Test Item Value Reference Range Interpretation Comments HEMOGLOBIN A1c (test code = 71337) 10.9 % VITAMIN D, 25 [id number] 04:13:44 Test Item Value Reference Range Interpretation [...] ATED, ALL TESTING PERFORM ED ATCLINICAL PATH [facility], [facility]. [address] [place] [id number] LABORATORY DIRE CTOR: Carlos Enrique BERNARD. CLIA NUMBER [id number] CAP ACCREDITATION N O. [id number] HIV 1/2 4TH GEN, RFLX [id number] 03:26:41 Test Item Value Reference Range Interpretation Comments HIV 1/2 4TH GEN, RFLX CONF (test NON-REACTIVE NON-REACTIVE code = 3514) ALBUMIN, URINE, [id number] 02:46:02 Test Item Value Reference Range Interpretation Comments ALBUMIN, URINE, RANDOM (test code 10.2 MG/DL NOT ESTAB = 86050) MICROALBUMIN, [id number] 00:00:00 Test Item Value Reference Range Interpretation Comments ALBUMIN, URINE, RANDOM (test code 10.2 MG/DL = 83745) MICROALBUMIN, [id number] 00:00:00 Test Item Value Reference Range Interpretation Comments ALBUMIN, URINE, RANDOM (test code 10.2 MG/DL = 91856) HIV AB/AG COMBO RFLX [id number] 00:00:00 Test Item Value Reference Range Interpretation Comments HIV 1/2 4TH GEN, RFLX CONF (test NON-REACTIVE code = 3514) HIV AB/AG COMBO RFLX [id number] 00:00:00 Test Item Value Reference Range Interpretation Comments HIV 1/2 4TH GEN, RFLX CONF (test NON-REACTIVE code = 3514) VITAMIN D, 25 [id number] 00:00:00 Test Item Value Reference Range Interpretation Comments VITAMIN D, 25 OH (test code = 4958) 18 NG/ML VITAMIN D, 25 [id number] 00:00:00 Test Item Value Reference Range Interpretation Comments VITAMIN D, 25 OH (test code = 4958) 18 NG/ML MICROALBUMIN, [id number] 00:00:00 Test Item Value Reference Range Interpretation Comments ALBUMIN, URINE, RANDOM (test code 10.2 MG/DL = 53788) MICROALBUMIN, [id number] 00:00:00 Test Item Value Reference Range Interpretation Comments ALBUMIN, URINE, RANDOM (test code 10.2 MG/DL = 68697) HIV AB/AG COMBO RFLX [id number] 00:00:00 Test Item Value Reference Range Interpretation Comments HIV 1/2 4TH GEN, RFLX CONF (test NON-REACTIVE code = 3514) HIV AB/AG COMBO RFLX [id number] 00:00:00 Test Item Value Reference Range Interpretation Comments HIV 1/2 4TH GEN, RFLX CONF (test NON-REACTIVE code = 3514) VITAMIN D, 25 [id number] 00:00:00 Test Item Value Reference Range Interpretation Comments VITAMIN D, 25 OH (test code = 4958) 18 NG/ML VITAMIN D, 25 [id number] 00:00:00 Test Item Value Reference Range Interpretation Comments VITAMIN D, 25 OH (test code = 4958) 18 NG/ML MICROALBUMIN, [id number] 00:00:00 Test Item Value Reference Range Interpretation Comments ALBUMIN, URINE, RANDOM (test code 10.2 MG/DL = 81024) MICROALBUMIN, [id number] 00:00:00 Test Item Value Reference Range Interpretation Comments ALBUMIN, URINE, RANDOM (test code 10.2 MG/DL = 77651) HIV AB/AG COMBO RFLX [id number] 00:00:00 Test Item Value Reference Range Interpretation Comments HIV 1/2 4TH GEN, RFLX CONF (test NON-REACTIVE code = 3514) HIV AB/AG COMBO RFLX [id number] 00:00:00 Test Item Value Reference Range Interpretation Comments HIV 1/2 4TH GEN, RFLX CONF (test NON-REACTIVE code = 3514) VITAMIN D, 25 [id number] 00:00:00 Test Item Value Reference Range Interpretation Comments VITAMIN D, 25 OH (test code = 4958) 18 NG/ML VITAMIN D, 25 [id number] 00:00:00 Test Item Value Reference Range Interpretation Comments VITAMIN D, 25 OH (test code = 4958) 18 NG/ML MICROALBUMIN, [id number] 00:00:00 Test Item Value Reference Range Interpretation Comments ALBUMIN, URINE, RANDOM (test code 10.2 MG/DL = 85831) MICROALBUMIN, [id number] 00:00:00 Test Item Value Reference Range Interpretation Comments ALBUMIN, URINE, RANDOM (test code 10.2 MG/DL = 04480) HIV AB/AG COMBO RFLX [id number] 00:00:00 Test Item Value Reference Range Interpretation Comments HIV 1/2 4TH GEN, RFLX CONF (test NON-REACTIVE code = 3514) HIV AB/AG COMBO RFLX [id number] 00:00:00 Test Item Value Reference Range Interpretation Comments HIV 1/2 4TH GEN, RFLX CONF (test NON-REACTIVE code = 3514) VITAMIN D, 25 [id number] 00:00:00 Test Item Value Reference Range Interpretation Comments VITAMIN D, 25 OH (test code = 4958) 18 NG/ML VITAMIN D, 25 [id number] 00:00:00 Test Item Value Reference Range Interpretation Comments VITAMIN D, 25 OH (test code = 4958) 18 NG/ML MICROALBUMIN, [id number] 00:00:00 Test Item Value Reference Range Interpretation Comments ALBUMIN, URINE, RANDOM (test code 10.2 MG/DL = 85842) MICROALBUMIN, [id number] 00:00:00 Test Item Value Reference Range Interpretation Comments ALBUMIN, URINE, RANDOM (test code 10.2 MG/DL = 55716) HIV AB/AG COMBO RFLX [id number] 00:00:00 Test Item Value Reference Range Interpretation Comments HIV 1/2 4TH GEN, RFLX CONF (test NON-REACTIVE code = 3514) HIV AB/AG COMBO RFLX [id number] 00:00:00 Test Item Value Reference Range Interpretation Comments HIV 1/2 4TH GEN, RFLX CONF (test NON-REACTIVE code = 3514) VITAMIN D, 25 [id number] 00:00:00 Test Item Value Reference Range Interpretation Comments VITAMIN D, 25 OH (test code = 4958) 18 NG/ML VITAMIN D, 25 [id number] 00:00:00 Test Item Value Reference Range Interpretation Comments VITAMIN D, 25 OH (test code = 4958) 18 NG/ML MICROALBUMIN, [id number] 00:00:00 Test Item Value Reference Range Interpretation Comments ALBUMIN, URINE, RANDOM (test code 10.2 MG/DL = 75313) MICROALBUMIN, [id number] 00:00:00 Test Item Value Reference Range Interpretation Comments ALBUMIN, URINE, RANDOM (test code 10.2 MG/DL = 66242) HIV AB/AG COMBO RFLX [id number] 00:00:00 Test Item Value Reference Range Interpretation Comments HIV 1/2 4TH GEN, RFLX CONF (test NON-REACTIVE code = 3514) HIV AB/AG COMBO RFLX [id number] 00:00:00 Test Item Value Reference Range Interpretation Comments HIV 1/2 4TH GEN, RFLX CONF (test NON-REACTIVE code = 3514) VITAMIN D, 25 [id number] 00:00:00 Test Item Value Reference Range Interpretation Comments VITAMIN D, 25 OH (test code = 4958) 18 NG/ML VITAMIN D, 25 [id number] 00:00:00 Test Item Value Reference Range Interpretation Comments VITAMIN D, 25 OH (test code = 4958) 18 NG/ML MICROALBUMIN, [id number] 00:00:00 Test Item Value Reference Range Interpretation Comments ALBUMIN, URINE, RANDOM (test code 10.2 MG/DL = 98129) MICROALBUMIN, [id number] 00:00:00 Test Item Value Reference Range Interpretation Comments ALBUMIN, URINE, RANDOM (test code 10.2 MG/DL = 28259) HIV AB/AG COMBO RFLX [id number] 00:00:00 Test Item Value Reference Range Interpretation Comments HIV 1/2 4TH GEN, RFLX CONF (test NON-REACTIVE code = 3514) HIV AB/AG COMBO RFLX [id number] 00:00:00 Test Item Value Reference Range Interpretation Comments HIV 1/2 4TH GEN, RFLX CONF (test NON-REACTIVE code = 3514) VITAMIN D, 25 [id number] 00:00:00 Test Item Value Reference Range Interpretation Comments VITAMIN D, 25 OH (test code = 4958) 18 NG/ML VITAMIN D, 25 [id number] 00:00:00 Test Item Value Reference Range Interpretation Comments VITAMIN D, 25 OH (test code = 4958) 18 NG/ML MICROALBUMIN, [id number] 00:00:00 Test Item Value Reference Range Interpretation Comments ALBUMIN, URINE, RANDOM (test code 10.2 MG/DL = 13696) HIV AB/AG COMBO RFLX [id number] 00:00:00 Test Item Value Reference Range Interpretation Comments HIV 1/2 4TH GEN, RFLX CONF (test NON-REACTIVE code = 3514) MICROALBUMIN, [id number] 00:00:00 Test Item Value Reference Range Interpretation Comments ALBUMIN, URINE, RANDOM (test code 10.2 MG/DL = 50076) MICROALBUMIN, [id number] 00:00:00 Test Item Value Reference Range Interpretation Comments ALBUMIN, URINE, RANDOM (test code 10.2 MG/DL = 80262) HIV AB/AG COMBO RFLX [id number] 00:00:00 Test Item Value Reference Range Interpretation Comments HIV 1/2 4TH GEN, RFLX CONF (test NON-REACTIVE code = 3514) HIV AB/AG COMBO RFLX [id number] 00:00:00 Test Item Value Reference Range Interpretation Comments HIV 1/2 4TH GEN, RFLX CONF (test NON-REACTIVE code = 3514) VITAMIN D, 25 [id number] 00:00:00 Test Item Value Reference Range Interpretation Comments VITAMIN D, 25 OH (test code = 4958) 18 NG/ML VITAMIN D, 25 [id number] 00:00:00 Test Item Value Reference Range Interpretation Comments VITAMIN D, 25 OH (test code = 4958) 18 NG/ML VITAMIN D, 25 [id number] 00:00:00 Test Item Value Reference Range Interpretation Comments VITAMIN D, 25 OH (test code = 4958) 18 NG/ML MICROALBUMIN, [id number] 00:00:00 Test Item Value Reference Range Interpretation Comments ALBUMIN, URINE, RANDOM (test code 10.2 MG/DL = 43678) MICROALBUMIN, [id number] 00:00:00 Test Item Value Reference Range Interpretation Comments ALBUMIN, URINE, RANDOM (test code 10.2 MG/DL = 02309) HIV AB/AG COMBO RFLX [id number] 00:00:00 Test Item Value Reference Range Interpretation Comments HIV 1/2 4TH GEN, RFLX CONF (test NON-REACTIVE code = 3514) HIV AB/AG COMBO RFLX [id number] 00:00:00 Test Item Value Reference Range Interpretation Comments HIV 1/2 4TH GEN, RFLX CONF (test NON-REACTIVE code = 3514) VITAMIN D, 25 [id number] 00:00:00 Test Item Value Reference Range Interpretation Comments VITAMIN D, 25 OH (test code = 4958) 18 NG/ML VITAMIN D, 25 [id number] 00:00:00 Test Item Value Reference Range Interpretation Comments VITAMIN D, 25 OH (test code = 4958) 18 NG/ML MICROALBUMIN, [id number] 00:00:00 Test Item Value Reference Range Interpretation Comments ALBUMIN, URINE, RANDOM (test code 10.2 MG/DL = 48443) MICROALBUMIN, [id number] 00:00:00 Test Item Value Reference Range Interpretation Comments ALBUMIN, URINE, RANDOM (test code 10.2 MG/DL = 20287) HIV AB/AG COMBO RFLX [id number] 00:00:00 Test Item Value Reference Range Interpretation Comments HIV 1/2 4TH GEN, RFLX CONF (test NON-REACTIVE code = 3514) HIV AB/AG COMBO RFLX [id number] 00:00:00 Test Item Value Reference Range Interpretation Comments HIV 1/2 4TH GEN, RFLX CONF (test NON-REACTIVE code = 3514) VITAMIN D, 25 [id number] 00:00:00 Test Item Value Reference Range Interpretation Comments VITAMIN D, 25 OH (test code = 4958) 18 NG/ML VITAMIN D, 25 [id number] 00:00:00 Test Item Value Reference Range Interpretation Comments VITAMIN D, 25 OH (test code = 4958) 18 NG/ML LIPID [id number] 02:15:07 Test Item Value Reference Range Interpretation [...] MOREINFORMATION , SEE CLIENT ANNOUNCE MENT AT [email or web address] CalcLDL-C RISK RATIO LDL/HDL (NOTE) RATIO <3.22 UNABLE T O CALCULATE (test code = 2238) COMPREHENSIVE METABOLIC [id number] 02:15:07 Test Item Value Reference Range Interpretation Comments GLUCOSE (test code = 349 MG/DL 70-99 H 2216) BUN (test code = 17 MG/DL 6-20 2207) CREATININE (test 0.80 MG/DL 0.60-1.30 code = 2214) eGFR (2020 CKD-EPI) 94 ML/MIN/1.73 >60 (test code = 89582) CALC BUN/CREAT (test 21 RATIO 6-28 code = 2235) SODIUM (test code = 137 MEQ/L 960-179 0781) POTASSIUM (test code 4.2 MEQ/L 3.5-5.4 = [...] code = 39 U/L 5-40 2218) LIPID [id number] 00:00:00 Test Item Value Reference Range Interpretation Comments CHOLESTEROL (test code = 2210) 206 MG/DL TRIGLYCERIDES (test code = 2232) 1120 MG/DL HDL CHOLESTEROL (test code = 24 MG/DL 2220) CALC LDL CHOL (test code = 2237) (NOTE) MG/DL RISK RATIO LDL/HDL (test code = (NOTE) RATIO 2238) LIPID [id number] 00:00:00 Test Item Value Reference Range Interpretation Comments CHOLESTEROL (test code = 2210) 206 MG/DL TRIGLYCERIDES (test code = 2232) 1120 MG/DL HDL CHOLESTEROL (test code = 24 MG/DL 0) CALC LDL CHOL (test code = 2237) (NOTE) MG/DL RISK RATIO LDL/HDL (test code = (NOTE) RATIO 2238) COMPREHENSIVE METABOLIC [id number] 00:00:00 Test Item Value Reference Range Interpretation Comments GLUCOSE (test code = 7) 349 MG/DL BUN (test code = 2208) 17 MG/DL CREATININE (test code = 2214) 0.80 MG/DL eGFR (2020 CKD-EPI) (test code 94 ML/MIN/1.73 = 13577) CALC BUN/CREAT (test code = 21 RATIO [...] code = 2219) 39 U/L COMPREHENSIVE METABOLIC [id number] 00:00:00 Test Item Value Reference Range Interpretation Comments GLUCOSE (test code = 2217) 349 MG/DL BUN (test code = 2208) 17 MG/DL CREATININE (test code = 2214) 0.80 MG/DL eGFR (2020 CKD-EPI) (test code 94 ML/MIN/1.73 = 88605) CALC BUN/CREAT (test code = 21 RATIO [...] (test code = 2219) 39 U/L LIPID [id number] 00:00:00 Test Item Value Reference Range Interpretation Comments CHOLESTEROL (test code = 2210) 206 MG/DL TRIGLYCERIDES (test code = 2232) 1120 MG/DL HDL CHOLESTEROL (test code = 24 MG/DL 2220) CALC LDL CHOL (test code = 2237) (NOTE) MG/DL RISK RATIO LDL/HDL (test code = (NOTE) RATIO 2238) LIPID [id number] 00:00:00 Test Item Value Reference Range Interpretation Comments CHOLESTEROL (test code = 2210) 206 MG/DL TRIGLYCERIDES (test code = 2232) 1120 MG/DL HDL CHOLESTEROL (test code = 24 MG/DL 2220) CALC LDL CHOL (test code = 2237) (NOTE) MG/DL RISK RATIO LDL/HDL (test code = (NOTE) RATIO 2238) COMPREHENSIVE METABOLIC [id number] 00:00:00 Test Item Value Reference Range Interpretation Comments GLUCOSE (test code = 2217) 349 MG/DL BUN (test code = 2208) 17 MG/DL CREATININE (test code = 2214) 0.80 MG/DL eGFR (2020 CKD-EPI) (test code 94 ML/MIN/1.73 = 36692) CALC BUN/CREAT (test code = 21 RATIO [...] code = 2219) 39 U/L COMPREHENSIVE METABOLIC [id number] 00:00:00 Test Item Value Reference Range Interpretation Comments GLUCOSE (test code = 2217) 349 MG/DL BUN (test code = 2208) 17 MG/DL CREATININE (test code = 2214) 0.80 MG/DL eGFR (2020 CKD-EPI) (test code 94 ML/MIN/1.73 = 61237) CALC BUN/CREAT (test code = 21 RATIO [...] (test code = 2219) 39 U/L LIPID [id number] 00:00:00 Test Item Value Reference Range Interpretation Comments CHOLESTEROL (test code = 2210) 206 MG/DL TRIGLYCERIDES (test code = 2232) 1120 MG/DL HDL CHOLESTEROL (test code = 24 MG/DL 2220) CALC LDL CHOL (test code = 2237) (NOTE) MG/DL RISK RATIO LDL/HDL (test code = (NOTE) RATIO 2238) LIPID [id number] 00:00:00 Test Item Value Reference Range Interpretation Comments CHOLESTEROL (test code = 2210) 206 MG/DL TRIGLYCERIDES (test code = 2232) 1120 MG/DL HDL CHOLESTEROL (test code = 24 MG/DL 2220) CALC LDL CHOL (test code = 2237) (NOTE) MG/DL RISK RATIO LDL/HDL (test code = (NOTE) RATIO 2238) COMPREHENSIVE METABOLIC [id number] 00:00:00 Test Item Value Reference Range Interpretation Comments GLUCOSE (test code = 2217) 349 MG/DL BUN (test code = 2208) 17 MG/DL CREATININE (test code = 2214) 0.80 MG/DL eGFR (2020 CKD-EPI) (test code 94 ML/MIN/1.73 = 87170) CALC BUN/CREAT (test code = 21 RATIO [...] code = 2219) 39 U/L COMPREHENSIVE METABOLIC [id number] 00:00:00 Test Item Value Reference Range Interpretation Comments GLUCOSE (test code = 2217) 349 MG/DL BUN (test code = 2208) 17 MG/DL CREATININE (test code = 2214) 0.80 MG/DL eGFR (2020 CKD-EPI) (test code 94 ML/MIN/1.73 = 97303) CALC BUN/CREAT (test code = 21 RATIO [...] (test code = 2219) 39 U/L LIPID [id number] 00:00:00 Test Item Value Reference Range Interpretation Comments CHOLESTEROL (test code = 2210) 206 MG/DL TRIGLYCERIDES (test code = 2232) 1120 MG/DL HDL CHOLESTEROL (test code = 24 MG/DL 2220) CALC LDL CHOL (test code = 2237) (NOTE) MG/DL RISK RATIO LDL/HDL (test code = (NOTE) RATIO 2238) LIPID [id number] 00:00:00 Test Item Value Reference Range Interpretation Comments CHOLESTEROL (test code = 2210) 206 MG/DL TRIGLYCERIDES (test code = 2232) 1120 MG/DL HDL CHOLESTEROL (test code = 24 MG/DL 2220) CALC LDL CHOL (test code = 2237) (NOTE) MG/DL RISK RATIO LDL/HDL (test code = (NOTE) RATIO 2238) COMPREHENSIVE METABOLIC [id number] 00:00:00 Test Item Value Reference Range Interpretation Comments GLUCOSE (test code = 2217) 349 MG/DL BUN (test code = 2208) 17 MG/DL CREATININE (test code = 2214) 0.80 MG/DL eGFR (2020 CKD-EPI) (test code 94 ML/MIN/1.73 = 92060) CALC BUN/CREAT (test code = 21 RATIO [...] code = 2219) 39 U/L COMPREHENSIVE METABOLIC [id number] 00:00:00 Test Item Value Reference Range Interpretation Comments GLUCOSE (test code = 2217) 349 MG/DL BUN (test code = 2208) 17 MG/DL CREATININE (test code = 2214) 0.80 MG/DL eGFR (2020 CKD-EPI) (test code 94 ML/MIN/1.73 = 49883) CALC BUN/CREAT (test code = 21 RATIO [...] (test code = 2219) 39 U/L LIPID [id number] 00:00:00 Test Item Value Reference Range Interpretation Comments CHOLESTEROL (test code = 2210) 206 MG/DL TRIGLYCERIDES (test code = 2232) 1120 MG/DL HDL CHOLESTEROL (test code = 24 MG/DL 2220) CALC LDL CHOL (test code = 2237) (NOTE) MG/DL RISK RATIO LDL/HDL (test code = (NOTE) RATIO 2238) LIPID [id number] 00:00:00 Test Item Value Reference Range Interpretation Comments CHOLESTEROL (test code = 2210) 206 MG/DL TRIGLYCERIDES (test code = 2232) 1120 MG/DL HDL CHOLESTEROL (test code = 24 MG/DL 2220) CALC LDL CHOL (test code = 2237) (NOTE) MG/DL RISK RATIO LDL/HDL (test code = (NOTE) RATIO 2238) COMPREHENSIVE METABOLIC [id number] 00:00:00 Test Item Value Reference Range Interpretation Comments GLUCOSE (test code = 2217) 349 MG/DL BUN (test code = 2208) 17 MG/DL CREATININE (test code = 2214) 0.80 MG/DL eGFR (2020 CKD-EPI) (test code 94 ML/MIN/1.73 = 65027) CALC BUN/CREAT (test code = 21 RATIO [...] code = 2219) 39 U/L COMPREHENSIVE METABOLIC [id number] 00:00:00 Test Item Value Reference Range Interpretation Comments GLUCOSE (test code = 2217) 349 MG/DL BUN (test code = 2208) 17 MG/DL CREATININE (test code = 2214) 0.80 MG/DL eGFR (2020 CKD-EPI) (test code 94 ML/MIN/1.73 = 04310) CALC BUN/CREAT (test code = 21 RATIO [...] (test code = 2219) 39 U/L LIPID [id number] 00:00:00 Test Item Value Reference Range Interpretation Comments CHOLESTEROL (test code = 2210) 206 MG/DL TRIGLYCERIDES (test code = 2232) 1120 MG/DL HDL CHOLESTEROL (test code = 24 MG/DL 2220) CALC LDL CHOL (test code = 2237) (NOTE) MG/DL RISK RATIO LDL/HDL (test code = (NOTE) RATIO 2238) LIPID [id number] 00:00:00 Test Item Value Reference Range Interpretation Comments CHOLESTEROL (test code = 2210) 206 MG/DL TRIGLYCERIDES (test code = 2232) 1120 MG/DL HDL CHOLESTEROL (test code = 24 MG/DL 2220) CALC LDL CHOL (test code = 2237) (NOTE) MG/DL RISK RATIO LDL/HDL (test code = (NOTE) RATIO 2238) COMPREHENSIVE METABOLIC [id number] 00:00:00 Test Item Value Reference Range Interpretation Comments GLUCOSE (test code = 2217) 349 MG/DL BUN (test code = 2208) 17 MG/DL CREATININE (test code = 2214) 0.80 MG/DL eGFR (2020 CKD-EPI) (test code 94 ML/MIN/1.73 = 55835) CALC BUN/CREAT (test code = 21 RATIO [...] code = 2219) 39 U/L COMPREHENSIVE METABOLIC [id number] 00:00:00 Test Item Value Reference Range Interpretation Comments GLUCOSE (test code = 2217) 349 MG/DL BUN (test code = 2208) 17 MG/DL CREATININE (test code = 2214) 0.80 MG/DL eGFR (2020 CKD-EPI) (test code 94 ML/MIN/1.73 = 77237) CALC BUN/CREAT (test code = 21 RATIO [...] = 0.2 MG/DL 7) ALKALINE PHOSPHATASE (test 69 U/L code = 2204) AST (test code = 2218) 21 U/L ALT (test code = 2219) 39 U/L LIPID [id number] 00:00:00 Test Item Value Reference Range Interpretation Comments CHOLESTEROL (test code = 2210) 206 MG/DL TRIGLYCERIDES (test code = 2232) 1120 MG/DL HDL CHOLESTEROL (test code = 24 MG/DL 2220) CALC LDL CHOL (test code = 2237) (NOTE) MG/DL RISK RATIO LDL/HDL (test code = (NOTE) RATIO 2238) LIPID [id number] 00:00:00 Test Item Value Reference Range Interpretation Comments CHOLESTEROL (test code = 2210) 206 MG/DL TRIGLYCERIDES (test code = 2232) 1120 MG/DL HDL CHOLESTEROL (test code = 24 MG/DL 2220) CALC LDL CHOL (test code = 2237) (NOTE) MG/DL RISK RATIO LDL/HDL (test code = (NOTE) RATIO 2238) COMPREHENSIVE METABOLIC [id number] 00:00:00 Test Item Value Reference Range Interpretation Comments GLUCOSE (test code = 2217) 349 MG/DL BUN (test code = 2208) 17 MG/DL CREATININE (test code = 2214) 0.80 MG/DL eGFR (2020 CKD-EPI) (test code 94 ML/MIN/1.73 = 08688) CALC BUN/CREAT (test code = 21 RATIO [...] code = 2219) 39 U/L COMPREHENSIVE METABOLIC [id number] 00:00:00 Test Item Value Reference Range Interpretation Comments GLUCOSE (test code = 2217) 349 MG/DL BUN (test code = 2208) 17 MG/DL CREATININE (test code = 2214) 0.80 MG/DL eGFR (2020 CKD-EPI) (test code 94 ML/MIN/1.73 = 45946) CALC BUN/CREAT (test code = 21 RATIO [...] (test code = 2219) 39 U/L LIPID [id number] 00:00:00 Test Item Value Reference Range Interpretation Comments CHOLESTEROL (test code = 2210) 206 MG/DL TRIGLYCERIDES (test code = 2232) 1120 MG/DL HDL CHOLESTEROL (test code = 24 MG/DL 2220) CALC LDL CHOL (test code = 2237) (NOTE) MG/DL RISK RATIO LDL/HDL (test code = (NOTE) RATIO 2238) COMPREHENSIVE METABOLIC [id number] 00:00:00 Test Item Value Reference Range Interpretation Comments GLUCOSE (test code = 2217) 349 MG/DL BUN (test code = 2208) 17 MG/DL CREATININE (test code = 2214) 0.80 MG/DL eGFR (2020 CKD-EPI) (test code 94 ML/MIN/1.73 = 97255) CALC BUN/CREAT (test code = 21 RATIO [...] (test code = 2219) 39 U/L LIPID [id number] 00:00:00 Test Item Value Reference Range Interpretation Comments CHOLESTEROL (test code = 2210) 206 MG/DL TRIGLYCERIDES (test code = 2232) 1120 MG/DL HDL CHOLESTEROL (test code = 24 MG/DL 2220) CALC LDL CHOL (test code = 2237) (NOTE) MG/DL RISK RATIO LDL/HDL (test code = (NOTE) RATIO 2238) LIPID [id number] 00:00:00 Test Item Value Reference Range Interpretation Comments CHOLESTEROL (test code = 2210) 206 MG/DL TRIGLYCERIDES (test code = 2232) 1120 MG/DL HDL CHOLESTEROL (test code = 24 MG/DL 2220) CALC LDL CHOL (test code = 2237) (NOTE) MG/DL RISK RATIO LDL/HDL (test code = (NOTE) RATIO 2238) COMPREHENSIVE METABOLIC [id number] 00:00:00 Test Item Value Reference Range Interpretation Comments GLUCOSE (test code = 2217) 349 MG/DL BUN (test code = 2208) 17 MG/DL CREATININE (test code = 2214) 0.80 MG/DL eGFR (2020 CKD-EPI) (test code 94 ML/MIN/1.73 = 21872) CALC BUN/CREAT (test code = 21 RATIO [...] code = 2219) 39 U/L COMPREHENSIVE METABOLIC [id number] 00:00:00 Test Item Value Reference Range Interpretation Comments GLUCOSE (test code = 2217) 349 MG/DL BUN (test code = 2208) 17 MG/DL CREATININE (test code = 2214) 0.80 MG/DL eGFR (2020 CKD-EPI) (test code 94 ML/MIN/1.73 = 33622) CALC BUN/CREAT (test code = 21 RATIO [...] (test code = 2219) 39 U/L LIPID [id number] 00:00:00 Test Item Value Reference Range Interpretation Comments CHOLESTEROL (test code = 2210) 206 MG/DL TRIGLYCERIDES (test code = 2232) 1120 MG/DL HDL CHOLESTEROL (test code = 24 MG/DL 2220) CALC LDL CHOL (test code = 2237) (NOTE) MG/DL RISK RATIO LDL/HDL (test code = (NOTE) RATIO 2238) LIPID [id number] 00:00:00 Test Item Value Reference Range Interpretation Comments CHOLESTEROL (test code = 2210) 206 MG/DL TRIGLYCERIDES (test code = 2232) 1120 MG/DL HDL CHOLESTEROL (test code = 24 MG/DL 2220) CALC LDL CHOL (test code = 2237) (NOTE) MG/DL RISK RATIO LDL/HDL (test code = (NOTE) RATIO 2238) COMPREHENSIVE METABOLIC [id number] 00:00:00 Test Item Value Reference Range Interpretation Comments GLUCOSE (test code = 2217) 349 MG/DL BUN (test code = 2208) 17 MG/DL CREATININE (test code = 2214) 0.80 MG/DL eGFR (2020 CKD-EPI) (test code 94 ML/MIN/1.73 = 83449) CALC BUN/CREAT (test code = 21 RATIO [...] code = 2219) 39 U/L COMPREHENSIVE METABOLIC [id number] 00:00:00 Test Item Value Reference Range Interpretation Comments GLUCOSE (test code = 2217) 349 MG/DL BUN (test code = 2208) 17 MG/DL CREATININE (test code = 2214) 0.80 MG/DL eGFR (2020 CKD-EPI) (test code 94 ML/MIN/1.73 = 79827) CALC BUN/CREAT (test code = 21 RATIO [...] (test code = 2219) 39 U/L LIPID [id number] 00:00:00 Test Item Value Reference Range Interpretation Comments CHOLESTEROL (test code = 2210) 206 MG/DL TRIGLYCERIDES (test code = 2232) 1120 MG/DL HDL CHOLESTEROL (test code = 24 MG/DL 2220) CALC LDL CHOL (test code = 2237) (NOTE) MG/DL RISK RATIO LDL/HDL (test code = (NOTE) RATIO 2238) LIPID [id number] 00:00:00 Test Item Value Reference Range Interpretation Comments CHOLESTEROL (test code = 2210) 206 MG/DL TRIGLYCERIDES (test code = 2232) 1120 MG/DL HDL CHOLESTEROL (test code = 24 MG/DL 2220) CALC LDL CHOL (test code = 2237) (NOTE) MG/DL RISK RATIO LDL/HDL (test code = (NOTE) RATIO 2238) COMPREHENSIVE METABOLIC [id number] 00:00:00 Test Item Value Reference Range Interpretation Comments GLUCOSE (test code = 2217) 349 MG/DL BUN (test code = 2208) 17 MG/DL CREATININE (test code = 2214) 0.80 MG/DL eGFR (2020 CKD-EPI) (test code 94 ML/MIN/1.73 = 37753) CALC BUN/CREAT (test code = 21 RATIO [...] code = 2219) 39 U/L COMPREHENSIVE METABOLIC [id number] 00:00:00 Test Item Value Reference Range Interpretation Comments GLUCOSE (test code = 2217) 349 MG/DL BUN (test code = 2208) 17 MG/DL CREATININE (test code = 2214) 0.80 MG/DL eGFR (2020 CKD-EPI) (test code 94 ML/MIN/1.73 = 20033) CALC BUN/CREAT (test code = 21 RATIO [...] ALKALINE PHOSPHATASE (test 69 U/L code = 220) AST (test code = 2218) 21 U/L ALT (test code = 2219) 39 U/L HEMOGLOBIN [id number] 04:43:57 Test Item Value Reference Range Interpretation Comments HEMOGLOBIN A1c (test 11.5 % 4.2-5.6 H [facility]AB[facility] code = 09529) [employer] A1C: PREDIABETES/INC REASED [...] ATE TESTING OR LABORATORY C ONSULTATION. HEMOGLOBIN [id number] 00:00:00 Test Item Value Reference Range Interpretation Comments HEMOGLOBIN A1c (test code = 50508) 11.5 % HEMOGLOBIN [id number] 00:00:00 Test Item Value Reference Range Interpretation Comments HEMOGLOBIN A1c (test code = 35667) 11.5 % HEMOGLOBIN [id number] 00:00:00 Test Item Value Reference Range Interpretation Comments HEMOGLOBIN A1c (test code = 07180) 11.5 % HEMOGLOBIN [id number] 00:00:00 Test Item Value Reference Range Interpretation Comments HEMOGLOBIN A1c (test code = 21992) 11.5 % HEMOGLOBIN [id number] 00:00:00 Test Item Value Reference Range Interpretation Comments HEMOGLOBIN A1c (test code = 03764) 11.5 % HEMOGLOBIN [id number] 00:00:00 Test Item Value Reference Range Interpretation Comments HEMOGLOBIN A1c (test code = 42508) 11.5 % HEMOGLOBIN [id number] 00:00:00 Test Item Value Reference Range Interpretation Comments HEMOGLOBIN A1c (test code = 32022) 11.5 % HEMOGLOBIN [id number] 00:00:00 Test Item Value Reference Range Interpretation Comments HEMOGLOBIN A1c (test code = 39522) 11.5 % HEMOGLOBIN [id number] 00:00:00 Test Item Value Reference Range Interpretation Comments HEMOGLOBIN A1c (test code = 78206) 11.5 % HEMOGLOBIN [id number] 00:00:00 Test Item Value Reference Range Interpretation Comments HEMOGLOBIN A1c (test code = 48925) 11.5 % HEMOGLOBIN [id number] 00:00:00 Test Item Value Reference Range Interpretation Comments HEMOGLOBIN A1c (test code = 39372) 11.5 % HEMOGLOBIN [id number] 00:00:00 Test Item Value Reference Range Interpretation Comments HEMOGLOBIN A1c (test code = 94983) 11.5 % HEMOGLOBIN [id number] 00:00:00 Test Item Value Reference Range Interpretation Comments HEMOGLOBIN A1c (test code = 08411) 11.5 % HEMOGLOBIN [id number] 00:00:00 Test Item Value Reference Range Interpretation Comments HEMOGLOBIN A1c (test code = 83997) 11.5 % HEMOGLOBIN [id number] 00:00:00 Test Item Value Reference Range Interpretation Comments HEMOGLOBIN A1c (test code = 47357) 11.5 % HEMOGLOBIN [id number] 00:00:00 Test Item Value Reference Range Interpretation Comments HEMOGLOBIN A1c (test code = 28017) 11.5 % HEMOGLOBIN [id number] 00:00:00 Test Item Value Reference Range Interpretation Comments HEMOGLOBIN A1c (test code = 69057) 11.5 % HEMOGLOBIN [id number] 00:00:00 Test Item Value Reference Range Interpretation Comments HEMOGLOBIN A1c (test code = 89562) 11.5 % HEMOGLOBIN [id number] 00:00:00 Test Item Value Reference Range Interpretation Comments HEMOGLOBIN A1c (test code = 31462) 11.5 % HEMOGLOBIN [id number] 00:00:00 Test Item Value Reference Range Interpretation Comments HEMOGLOBIN A1c (test code = 60906) 11.5 % HEMOGLOBIN [id number] 00:00:00 Test Item Value Reference Range Interpretation Comments HEMOGLOBIN A1c (test code = 08906) 11.5 % HEMOGLOBIN [id number] 00:00:00 Test Item Value Reference Range Interpretation Comments HEMOGLOBIN A1c (test code = 43861) 11.5 % HEMOGLOBIN [id number] 00:00:00 Test Item Value Reference Range Interpretation Comments HEMOGLOBIN A1c (test code = 49480) 11.5 % HEMOGLOBIN [id number] 00:00:00 Test Item Value Reference Range Interpretation Comments HEMOGLOBIN A1c (test code = 37713) 11.5 % HEMOGLOBIN [id number] 00:00:00 Test Item Value Reference Range Interpretation Comments HEMOGLOBIN A1c (test code = 05661) 11.5 % HEMOGLOBIN [id number] 00:00:00 Test Item Value Reference Range Interpretation Comments HEMOGLOBIN A1c (test code = 66592) 11.5 % HEMOGLOBIN [id number] 00:00:00 Test Item Value Reference Range Interpretation Comments HEMOGLOBIN A1c (test code = 45298) 11.5 % HEMOGLOBIN [id number] 00:00:00 Test Item Value Reference Range Interpretation Comments HEMOGLOBIN A1c (test code = 11354) 11.5 % HEMOGLOBIN [id number] 00:00:00 Test Item Value Reference Range Interpretation Comments HEMOGLOBIN A1c (test code = 30598) 11.5 % HEMOGLOBIN [id number] 00:00:00 Test Item Value Reference Range Interpretation Comments HEMOGLOBIN A1c (test code = 56748) 11.5 % HEMOGLOBIN [id number] 00:00:00 Test Item Value Reference Range Interpretation Comments HEMOGLOBIN A1c (test code = 54262) 11.5 % HEMOGLOBIN [id number] 00:00:00 Test Item Value Reference Range Interpretation Comments HEMOGLOBIN A1c (test code = 14315) 11.5 % CULTURE, [id number] 11:34:56SPECIMEN NUMBER: [id number] CULTURE, URINE SPECIMEN NUMBER: [id number] SPECIMEN COMMENT: URINE SOURCE:URINE REPORT STATUS: FINAL FINAL REPORT: 10/25/2021 10-50,000 CFU/ML UROGENITAL NORMA PRESENT NO COM MON PATHOGENSCULTURE, [id number] 00:00:00 Test Item Value Reference Range Interpretation Comments CULTURE, URINE (test SPECIMEN NUMBER: code = 53484) [id number] CULTURE, [id number] 00:00:00 Test Item Value Reference Range Interpretation Comments CULTURE, URINE (test SPECIMEN NUMBER: code = 11634) [id number] CULTURE, [id number] 00:00:00 Test Item Value Reference Range Interpretation Comments CULTURE, URINE (test SPECIMEN NUMBER: code = 15504) [id number] CULTURE, [id number] 00:00:00 Test Item Value Reference Range Interpretation Comments CULTURE, URINE (test SPECIMEN NUMBER: code = 60743) [id number] CULTURE, [id number] 00:00:00 Test Item Value Reference Range Interpretation Comments CULTURE, URINE (test SPECIMEN NUMBER: code = 76277) [id number] CULTURE, [id number] 00:00:00 Test Item Value Reference Range Interpretation Comments CULTURE, URINE (test SPECIMEN NUMBER: code = 00818) [id number] CULTURE, [id number] 00:00:00 Test Item Value Reference Range Interpretation Comments CULTURE, URINE (test SPECIMEN NUMBER: code = 27489) [id number] CULTURE, [id number] 00:00:00 Test Item Value Reference Range Interpretation Comments CULTURE, URINE (test SPECIMEN NUMBER: code = 58145) [id number] CULTURE, [id number] 00:00:00 Test Item Value Reference Range Interpretation Comments CULTURE, URINE (test SPECIMEN NUMBER: code = 66343) [id number] CULTURE, [id number] 00:00:00 Test Item Value Reference Range Interpretation Comments CULTURE, URINE (test SPECIMEN NUMBER: code = 11126) [id number] CULTURE, [id number] 00:00:00 Test Item Value Reference Range Interpretation Comments CULTURE, URINE (test SPECIMEN NUMBER: code = 61196) [id number] CULTURE, [id number] 00:00:00 Test Item Value Reference Range Interpretation Comments CULTURE, URINE (test SPECIMEN NUMBER: code = 06646) [id number] CULTURE, [id number] 00:00:00 Test Item Value Reference Range Interpretation Comments CULTURE, URINE (test SPECIMEN NUMBER: code = 50865) [id number] CULTURE, [id number] 00:00:00 Test Item Value Reference Range Interpretation Comments CULTURE, URINE (test SPECIMEN NUMBER: code = 92494) [id number] CULTURE, [id number] 00:00:00 Test Item Value Reference Range Interpretation Comments CULTURE, URINE (test SPECIMEN NUMBER: code = 26621) [id number] CULTURE, [id number] 00:00:00 Test Item Value Reference Range Interpretation Comments CULTURE, URINE (test SPECIMEN NUMBER: code = 39844) [id number] CULTURE, [id number] 00:00:00 Test Item Value Reference Range Interpretation Comments CULTURE, URINE (test SPECIMEN NUMBER: code = 14541) [id number] CULTURE, [id number] 00:00:00 Test Item Value Reference Range Interpretation Comments CULTURE, URINE (test SPECIMEN NUMBER: code = 77467) [id number] CULTURE, [id number] 00:00:00 Test Item Value Reference Range Interpretation Comments CULTURE, URINE (test SPECIMEN NUMBER: code = 47831) [id number] CULTURE, [id number] 00:00:00 Test Item Value Reference Range Interpretation Comments CULTURE, URINE (test SPECIMEN NUMBER: code = 77502) [id number] CULTURE, [id number] 00:00:00 Test Item Value Reference Range Interpretation Comments CULTURE, URINE (test SPECIMEN NUMBER: code = 46920) [id number] VAGINAL PATHOGENS DNA [id number] 11:55:20 Test Item Value Reference Range Interpretation Comments ANDIE SPECIES (test NEGATIVE NEGATIVE code = ) G. VAGINALIS (test NEGATIVE NEGATIVE code = 70575) T. VAGINALIS (test NEGATIVE NEGATIVE UNLESS O THERWISE code = ) INDICATED, ALL TESTING PERFORMED [facility] [address] [place] [address] 4 LABORATORY DIRE CTOR: NOAH TODD M.D. CLIA NUMBER [id number] [facility] [place]. [id number] VAGINAL PATHOGENS DNA [id number] 00:00:00 Test Item Value Reference Range Interpretation Comments ANDIE SPECIES (test code = 19592) NEGATIVE G. VAGINALIS (test code = 22060) NEGATIVE T. VAGINALIS (test code = 22570) NEGATIVE VAGINAL PATHOGENS DNA [id number] 00:00:00 Test Item Value Reference Range Interpretation Comments ANDIE SPECIES (test code = 65982) NEGATIVE G. VAGINALIS (test code = 32180) NEGATIVE T. VAGINALIS (test code = 48613) NEGATIVE VAGINAL PATHOGENS DNA [id number] 00:00:00 Test Item Value Reference Range Interpretation Comments ANDIE SPECIES (test code = 90766) NEGATIVE G. VAGINALIS (test code = 22523) NEGATIVE T. VAGINALIS (test code = 22726) NEGATIVE VAGINAL PATHOGENS DNA [id number] 00:00:00 Test Item Value Reference Range Interpretation Comments ANDIE SPECIES (test code = 31033) NEGATIVE G. VAGINALIS (test code = 66040) NEGATIVE T. VAGINALIS (test code = 84210) NEGATIVE VAGINAL PATHOGENS DNA [id number] 00:00:00 Test Item Value Reference Range Interpretation Comments ANDIE SPECIES (test code = 34536) NEGATIVE G. VAGINALIS (test code = 63074) NEGATIVE T. VAGINALIS (test code = 98201) NEGATIVE VAGINAL PATHOGENS DNA [id number] 00:00:00 Test Item Value Reference Range Interpretation Comments ANDIE SPECIES (test code = 33852) NEGATIVE G. VAGINALIS (test code = 17865) NEGATIVE T. VAGINALIS (test code = 70888) NEGATIVE VAGINAL PATHOGENS DNA [id number] 00:00:00 Test Item Value Reference Range Interpretation Comments ANDIE SPECIES (test code = 52212) NEGATIVE G. VAGINALIS (test code = 05183) NEGATIVE T. VAGINALIS (test code = 74997) NEGATIVE VAGINAL PATHOGENS DNA [id number] 00:00:00 Test Item Value Reference Range Interpretation Comments ANDIE SPECIES (test code = 65860) NEGATIVE G. VAGINALIS (test code = 19908) NEGATIVE T. VAGINALIS (test code = 84662) NEGATIVE VAGINAL PATHOGENS DNA [id number] 00:00:00 Test Item Value Reference Range Interpretation Comments ANDIE SPECIES (test code = 91774) NEGATIVE G. VAGINALIS (test code = 49778) NEGATIVE T. VAGINALIS (test code = 97711) NEGATIVE VAGINAL PATHOGENS DNA [id number] 00:00:00 Test Item Value Reference Range Interpretation Comments ANDIE SPECIES (test code = 25644) NEGATIVE G. VAGINALIS (test code = 52216) NEGATIVE T. VAGINALIS (test code = 25848) NEGATIVE VAGINAL PATHOGENS DNA [id number] 00:00:00 Test Item Value Reference Range Interpretation Comments ANDIE SPECIES (test code = 88637) NEGATIVE G. VAGINALIS (test code = 11874) NEGATIVE T. VAGINALIS (test code = 50844) NEGATIVE VAGINAL PATHOGENS DNA [id number] 00:00:00 Test Item Value Reference Range Interpretation Comments ANDIE SPECIES (test code = 54754) NEGATIVE G. VAGINALIS (test code = 45868) NEGATIVE T. VAGINALIS (test code = 83232) NEGATIVE VAGINAL PATHOGENS DNA [id number] 00:00:00 Test Item Value Reference Range Interpretation Comments ANDIE SPECIES (test code = 97457) NEGATIVE G. VAGINALIS (test code = 37680) NEGATIVE T. VAGINALIS (test code = 81644) NEGATIVE VAGINAL PATHOGENS DNA [id number] 00:00:00 Test Item Value Reference Range Interpretation Comments ANDIE SPECIES (test code = 95367) NEGATIVE G. VAGINALIS (test code = 49701) NEGATIVE T. VAGINALIS (test code = 61669) NEGATIVE VAGINAL PATHOGENS DNA [id number] 00:00:00 Test Item Value Reference Range Interpretation Comments ANDIE SPECIES (test code = 58045) NEGATIVE G. VAGINALIS (test code = 22226) NEGATIVE T. VAGINALIS (test code = 99295) NEGATIVE VAGINAL PATHOGENS DNA [id number] 00:00:00 Test Item Value Reference Range Interpretation Comments ANDIE SPECIES (test code = 60012) NEGATIVE G. VAGINALIS (test code = 65892) NEGATIVE T. VAGINALIS (test code = 40276) NEGATIVE VAGINAL PATHOGENS DNA [id number] 00:00:00 Test Item Value Reference Range Interpretation Comments ANDIE SPECIES (test code = 38481) NEGATIVE G. VAGINALIS (test code = 80607) NEGATIVE T. VAGINALIS (test code = 48551) NEGATIVE VAGINAL PATHOGENS DNA [id number] 00:00:00 Test Item Value Reference Range Interpretation Comments ANDIE SPECIES (test code = 90475) NEGATIVE G. VAGINALIS (test code = 77748) NEGATIVE T. VAGINALIS (test code = 38705) NEGATIVE VAGINAL PATHOGENS DNA [id number] 00:00:00 Test Item Value Reference Range Interpretation Comments ANDIE SPECIES (test code = ) NEGATIVE G. VAGINALIS (test code = 50803) NEGATIVE T. VAGINALIS (test code = 01463) NEGATIVE VAGINAL PATHOGENS DNA [id number] 00:00:00 Test Item Value Reference Range Interpretation Comments ANDIE SPECIES (test code = 59686) NEGATIVE G. VAGINALIS (test code = 35081) NEGATIVE T. VAGINALIS (test code = 11071) NEGATIVE VAGINAL PATHOGENS DNA [id number] 00:00:00 Test Item Value Reference Range Interpretation Comments ANDIE SPECIES (test code = 55753) NEGATIVE G. VAGINALIS (test code = 53213) NEGATIVE T. VAGINALIS (test code = 42265) NEGATIVE POCT GLUCOSE (AUTOMATED)2021-10-17 01:51:54 Test Item Value Reference Range Interpretation Comments POCT GLU (test code = 3196400644) 365 mg/dL 70-110 H Lab Interpretation (test code = Abnormal 46882-8) [facility] GLUCOSE (AUTOMATED)2021-10-17 00:46:51 Test Item Value Reference Range Interpretation Comments POCT GLU (test code = 8619784495) 435 mg/dL 70-110 H Lab Interpretation (test code = Abnormal 90896-6) [facility] GLUCOSE(AGE >30DAYS)2021-10-17 00:41:00 Test Item Value Reference Range Interpretation Comments POCT Glu (age>30days) (test code = 435 mg/dL 70-110 A 3342) Lab Interpretation (test code = Abnormal 15040-5) [facility] [id number] 23:40:42 Test Item Value Reference Interpretation Comments Range TROPONIN I (test 0.001 ng/mL See_Comment [Automated code = 8070733339) message] The system which generated this result [...] biotin. Lab Interpretation Normal (test code = 77447-6) [id number] 23:37:40 Test Item Value Reference Range Interpretation Comments NT-proBNP (test code 20 pg/mL See_Comment [Autom ated = 3840895169) message] The system which generated this result transmitted reference range : <=125. The reference range was not used to interpret this result as normal/abnormal . CALVIN (test code = CALVIN) Biotin has been reported to cause a negative bias, interpret results relative to patient's use of biotin. Lab Interpretation Normal (test code = 58265-8) [facility]OL[facility] PAN[facility] (74916)2021-10-16 23:29:18 Test Item Value Reference Range Interpretation Comments NA (test code = 134 mmol/L 135-145 L 2553665422) K (test code = 4.4 mmol/L 3.5-5.0 5446308943) CL (test code = 97 mmol/L 98-108 L 6208780590) CO2 TOTAL (test code = 23 mmol/L 23-31 8318208089) AGAP (test code = 2-16 0356283700) BUN (test code = 21 mg/dL 7-23 9314976830) GLUCOSE (test code = 431 mg/dL 70-110 H 1695933229) CREATININE (test code = 0.88 mg/dL 0.50-1.04 4128822175) TOTAL BILI (test code = 0.5 mg/dL 0.1-1.1 3582086630) CALCIUM (test code = 9.2 mg/dL 8.6-10.6 0676408216) T PROTEIN (test code = 7.4 g/dL 6.3-8.2 8112167363) ALBUMIN (test code = 4.7 g/dL 3.5-5.0 0605345876) ALK PHOS (test code = 52 U/L 34-122 5728744373) ALTv (test code = 30 U/L 1742-6) AST(SGOT) (test code = 25 U/L 40 1729025762) eGFR (test code = mL/min/1.73m2 3033213429) CALVIN (test code = CALVIN) Association of [...] tests). Lab Interpretation Abnormal (test code = 66782-8) [facility] WITH [id number] 23:20:10 Test Item Value Reference Range Interpretation Comments WBC (test code = See_Comment [Automated 6858-2) message] The sy stem which generated this result transmitted reference range : 4.30 - 11.10 10*3/?L. The reference range was not used to interpret this result as normal/abnormal . RBC (test code = See_Comment [Automated 051-8) message] The sy stem which generated this [...] RDW-SD (test code = 40.5 fL 39.0-49.9 34363-0) RDW-CV (test code = 13.5 % 12.0-15.5 788-0) PLT (test code = See_Comment [Automated 777-3) message] The sy stem which generated this result transmitted reference range : 166 - 358 10*3/ ?L. The reference r doretha was not used to interpret this result as normal/abnormal . MPV (test code = 9.6 fL 9.5-12.9 56448-9) NRBC/100 WBC (test See_Comment [Automat ed code = 3388344554) message] The system which generated this result transmitted reference range : 0.0 - 10.0 /100 WBCs. The refer ence range was not u sed to interpret th is result as normal/abnormal . NRBC x10^3 (test code <0.01 See_Comment [Auto mated = 0399301408) message] The s ystem which generated this result transmitted reference range : 10*3/?L. The reference range was not used to interpret this result as normal/abnormal . GRAN MAT (NEUT) % 43.2 % (test code = 770-8) IMM GRAN % (test code 0.70 % = 1851118195) LYMPH % (test code = 42.8 % 736-9) MONO % (test code = 9.2 % 5905-5) EOS % (test code = 3.0 % 713-8) BASO % (test code = 1.1 % 706-2) GRAN MAT x10^3(ANC) 3.15 10*3/uL 1.88-7.09 (test code = 4166575144) IMM GRAN x10^3 (test 0.05 10*3/uL 0.00-0.06 code = 4413559018) LYMPH x10^3 (test code 3.12 10*3/uL 1.32-3.29 = 731-0) MONO x10^3 (test code 0.67 10*3/uL 0.33-0.92 = 742-7) EOS x10^3 (test code = 0.22 10*3/uL 0.03-0.39 711-2) BASO x10^3 (test code 0.08 10*3/uL 0.01-0.07 H = 704-7) Lab Interpretation Abnormal (test code = 92555-1) [facility]Lanc[facility] Whole [id number] 23:09:32 Test Item Value Reference Range Interpretation Comments LACTIC ACID (test code = 1.94 mmol/L 0.50-2.20 2327275507) Lab Interpretation (test code = Normal 13800-7) [facility] [id number] 22:34:00 Test Item Value Reference Range Interpretation Comments POCT PREG (test code = 1605) Negative On board controls acceptable with Present C Line (test code = 3574) POCT PREG LOT # (test code = 3575) [id number] POCT PREG TEST DATE (test 2023-04-09 code = 3576) Lab Interpretation (test code = Normal 99936-7) [facility] [id number] 08:52:36SPECIMEN NUMBER: [id number] CULTURE, URINE SPECIMEN NUMBER: [id number] SPECIMEN COMMENT: URINE SOURCE:URINE REPORT STATUS: FINAL FINAL REPORT: 10/12/2021 >100,000 CFU/ML UROGENITAL NORMA PRESENT NO COMMON PATHOGENS UNLESS OTHERWISE INDICATED, ALL TESTING PER[facility]MED [facility] [address] [place] [address] RELINER: NOAH DICKENS M.D. CLIA NUMBER [id number] [place] [id number], [id number] 00:00:00 Test Item Value Reference Range Interpretation Comments CULTURE, URINE (test SPECIMEN NUMBER: code = 94583) [id number] CULTURE, [id number] 00:00:00 Test Item Value Reference Range Interpretation Comments CULTURE, URINE (test SPECIMEN NUMBER: code = 09094) [id number] CULTURE, [id number] 00:00:00 Test Item Value Reference Range Interpretation Comments CULTURE, URINE (test SPECIMEN NUMBER: code = 48327) [id number] CULTURE, [id number] 00:00:00 Test Item Value Reference Range Interpretation Comments CULTURE, URINE (test SPECIMEN NUMBER: code = 79193) [id number] CULTURE, [id number] 00:00:00 Test Item Value Reference Range Interpretation Comments CULTURE, URINE (test SPECIMEN NUMBER: code = 73866) [id number] CULTURE, [id number] 00:00:00 Test Item Value Reference Range Interpretation Comments CULTURE, URINE (test SPECIMEN NUMBER: code = 36628) [id number] CULTURE, [id number] 00:00:00 Test Item Value Reference Range Interpretation Comments CULTURE, URINE (test SPECIMEN NUMBER: code = 85938) [id number] CULTURE, [id number] 00:00:00 Test Item Value Reference Range Interpretation Comments CULTURE, URINE (test SPECIMEN NUMBER: code = 17053) [id number] CULTURE, [id number] 00:00:00 Test Item Value Reference Range Interpretation Comments CULTURE, URINE (test SPECIMEN NUMBER: code = 54216) [id number] CULTURE, [id number] 00:00:00 Test Item Value Reference Range Interpretation Comments CULTURE, URINE (test SPECIMEN NUMBER: code = 64483) [id number] CULTURE, [id number] 00:00:00 Test Item Value Reference Range Interpretation Comments CULTURE, URINE (test SPECIMEN NUMBER: code = 89969) [id number] CULTURE, [id number] 00:00:00 Test Item Value Reference Range Interpretation Comments CULTURE, URINE (test SPECIMEN NUMBER: code = 69420) [id number] CULTURE, [id number] 00:00:00 Test Item Value Reference Range Interpretation Comments CULTURE, URINE (test SPECIMEN NUMBER: code = 12617) [id number] CULTURE, [id number] 00:00:00 Test Item Value Reference Range Interpretation Comments CULTURE, URINE (test SPECIMEN NUMBER: code = 19533) [id number] CULTURE, [id number] 00:00:00 Test Item Value Reference Range Interpretation Comments CULTURE, URINE (test SPECIMEN NUMBER: code = 36738) [id number] CULTURE, [id number] 00:00:00 Test Item Value Reference Range Interpretation Comments CULTURE, URINE (test SPECIMEN NUMBER: code = 18895) [id number] CULTURE, [id number] 00:00:00 Test Item Value Reference Range Interpretation Comments CULTURE, URINE (test SPECIMEN NUMBER: code = 41615) [id number] CULTURE, [id number] 00:00:00 Test Item Value Reference Range Interpretation Comments CULTURE, URINE (test SPECIMEN NUMBER: code = 12128) [id number] CULTURE, [id number] 00:00:00 Test Item Value Reference Range Interpretation Comments CULTURE, URINE (test SPECIMEN NUMBER: code = 00957) [id number] CULTURE, [id number] 00:00:00 Test Item Value Reference Range Interpretation Comments CULTURE, URINE (test SPECIMEN NUMBER: code = 38442) [id number] CULTURE, [id number] 00:00:00 Test Item Value Reference Range Interpretation Comments CULTURE, URINE (test SPECIMEN NUMBER: code = 06225) [id number] URINE CULTURE, NO [id number] 09:46:36SPECIMEN NUMBER: [id number] URINE CULTURE, NO SENS SPECIMEN NUMBER: [id number] SPECIMEN COMMENT: URINESOURCE: URINE REPORT STATUS: FINAL FINAL REPORT: 10/08/2021 50-100,000 CFU/ML UROGENITAL NORMA PRESENT NO COMMON PATHOGENSURINE CULTURE, NO [id number] 00:00:00 Test Item Value Reference Range Interpretation Comments URINE CULTURE, NO SPECIMEN NUMBER: SENS (test code = 229069761 04158) URINE CULTURE, NO [id number] 00:00:00 Test Item Value Reference Range Interpretation Comments URINE CULTURE, NO SPECIMEN NUMBER: SENS (test code = 729455698 11349) URINE CULTURE, NO [id number] 00:00:00 Test Item Value Reference Range Interpretation Comments URINE CULTURE, NO SPECIMEN NUMBER: SENS (test code = 473978315 70326) URINE CULTURE, NO [id number] 00:00:00 Test Item Value Reference Range Interpretation Comments URINE CULTURE, NO SPECIMEN NUMBER: SENS (test code = 235423297 53705) URINE CULTURE, NO [id number] 00:00:00 Test Item Value Reference Range Interpretation Comments URINE CULTURE, NO SPECIMEN NUMBER: SENS (test code = 231476041 93485) URINE CULTURE, NO [id number] 00:00:00 Test Item Value Reference Range Interpretation Comments URINE CULTURE, NO SPECIMEN NUMBER: SENS (test code = 033362353 49043) URINE CULTURE, NO [id number] 00:00:00 Test Item Value Reference Range Interpretation Comments URINE CULTURE, NO SPECIMEN NUMBER: SENS (test code = 111451491 57081) URINE CULTURE, NO [id number] 00:00:00 Test Item Value Reference Range Interpretation Comments URINE CULTURE, NO SPECIMEN NUMBER: SENS (test code = 841978367 84669) URINE CULTURE, NO [id number] 00:00:00 Test Item Value Reference Range Interpretation Comments URINE CULTURE, NO SPECIMEN NUMBER: SENS (test code = [id number]) URINE CULTURE, NO [id number] 00:00:00 Test Item Value Reference Range Interpretation Comments URINE CULTURE, NO SPECIMEN NUMBER: SENS (test code = [id number]) URINE CULTURE, NO [id number] 00:00:00 Test Item Value Reference Range Interpretation Comments URINE CULTURE, NO SPECIMEN NUMBER: SENS (test code = [id number]) URINE CULTURE, NO [id number] 00:00:00 Test Item Value Reference Range Interpretation Comments URINE CULTURE, NO SPECIMEN NUMBER: SENS (test code = 333160699 53843) URINE CULTURE, NO [id number] 00:00:00 Test Item Value Reference Range Interpretation Comments URINE CULTURE, NO SPECIMEN NUMBER: SENS (test code = [id number] 53887) URINE CULTURE, NO [id number] 00:00:00 Test Item Value Reference Range Interpretation Comments URINE CULTURE, NO SPECIMEN NUMBER: SENS (test code = [id number] 91079) URINE CULTURE, NO [id number] 00:00:00 Test Item Value Reference Range Interpretation Comments URINE CULTURE, NO SPECIMEN NUMBER: SENS (test code = [id number] 63321) URINE CULTURE, NO [id number] 00:00:00 Test Item Value Reference Range Interpretation Comments URINE CULTURE, NO SPECIMEN NUMBER: SENS (test code = [id number] 22491) URINE CULTURE, NO [id number] 00:00:00 Test Item Value Reference Range Interpretation Comments URINE CULTURE, NO SPECIMEN NUMBER: SENS (test code = [id number] 68387) URINE CULTURE, NO [id number] 00:00:00 Test Item Value Reference Range Interpretation Comments URINE CULTURE, NO SPECIMEN NUMBER: SENS (test code = 590907897 85467) URINE CULTURE, NO [id number] 00:00:00 Test Item Value Reference Range Interpretation Comments URINE CULTURE, NO SPECIMEN NUMBER: SENS (test code = [id number] 99061) URINE CULTURE, NO [id number] 00:00:00 Test Item Value Reference Range Interpretation Comments URINE CULTURE, NO SPECIMEN NUMBER: SENS (test code = [id number] 42443) URINE CULTURE, NO [id number] 00:00:00 Test Item Value Reference Range Interpretation Comments URINE CULTURE, NO SPECIMEN NUMBER: SENS (test code = [id number] 44455) CBC W/AUTO DIFF WITH [id number] 07:54:02 Test Item Value Reference Range Interpretation [...] RBCS 0.00 K/UL 0.00-0.11 (test code = 37576) COMPREHENSIVE METABOLIC [id number] 05:34:02 Test Item Value Reference Range Interpretation Comments GLUCOSE (test code = 108 MG/DL 70-99 H 2216) BUN (test code = 17 MG/DL 6-20 2207) CREATININE (test 0.84 MG/DL 0.60-1.30 code = 2214) eGFR (2020 CKD-EPI) 88 >60 (test code = 73436) ML/MIN/1.73 CALC BUN/CREAT (test 20 RATIO 6-28 code = 2235) SODIUM (test code = 141 MEQ/L 517-161 4694) POTASSIUM (test code 4.0 MEQ/L 3.5-5.4 = [...] TESTING PERFORM ED [facility], [facility]. [address] [place] [address] [facility] DIRECTOR: NOAH DICKENS M.D. CLIA NUMBER [id number] CAP ACCREDITATION N O. [id number] CBC W/AUTO [id number] 00:00:00 Test Item Value Reference Range Interpretation [...] NUCLEATED RBCS (test code = 0.00 K/UL 13517) CBC W/AUTO [id number] 00:00:00 Test Item Value Reference Range Interpretation [...] NUCLEATED RBCS (test code = 0.00 K/UL 96914) CBC W/AUTO [id number] 00:00:00 Test Item Value Reference Range Interpretation [...] NUCLEATED RBCS (test code = 0.00 K/UL 77452) COMPREHENSIVE METABOLIC [id number] 00:00:00 Test Item Value Reference Range Interpretation Comments GLUCOSE (test code = 2217) 108 MG/DL BUN (test code = 2208) 17 MG/DL CREATININE (test code = 2214) 0.84 MG/DL eGFR (2020 CKD-EPI) (test code 88 ML/MIN/1.73 = 69826) CALC BUN/CREAT (test code = 20 RATIO [...] code = 2219) 28 U/L COMPREHENSIVE METABOLIC [id number] 00:00:00 Test Item Value Reference Range Interpretation Comments GLUCOSE (test code = 2217) 108 MG/DL BUN (test code = 2208) 17 MG/DL CREATININE (test code = 2214) 0.84 MG/DL eGFR (2020 CKD-EPI) (test code 88 ML/MIN/1.73 = 94369) CALC BUN/CREAT (test code = 20 RATIO [...] code = 2219) 28 U/L CBC W/AUTO [id number] 00:00:00 Test Item Value Reference Range Interpretation [...] NUCLEATED RBCS (test code = 0.00 K/UL 01465) CBC W/AUTO [id number] 00:00:00 Test Item Value Reference Range Interpretation [...] NUCLEATED RBCS (test code = 0.00 K/UL 98213) CBC W/AUTO [id number] 00:00:00 Test Item Value Reference Range Interpretation [...] NUCLEATED RBCS (test code = 0.00 K/UL 86890) COMPREHENSIVE METABOLIC [id number] 00:00:00 Test Item Value Reference Range Interpretation Comments GLUCOSE (test code = 2217) 108 MG/DL BUN (test code = 2208) 17 MG/DL CREATININE (test code = 2214) 0.84 MG/DL eGFR (2020 CKD-EPI) (test code 88 ML/MIN/1.73 = 21304) CALC BUN/CREAT (test code = 20 RATIO [...] code = 2219) 28 U/L COMPREHENSIVE METABOLIC [id number] 00:00:00 Test Item Value Reference Range Interpretation Comments GLUCOSE (test code = 2217) 108 MG/DL BUN (test code = 2208) 17 MG/DL CREATININE (test code = 2214) 0.84 MG/DL eGFR (2020 CKD-EPI) (test code 88 ML/MIN/1.73 = 71882) CALC BUN/CREAT (test code = 20 RATIO [...] code = 2219) 28 U/L CBC W/AUTO [id number] 00:00:00 Test Item Value Reference Range Interpretation [...] NUCLEATED RBCS (test code = 0.00 K/UL 64285) CBC W/AUTO [id number] 00:00:00 Test Item Value Reference Range Interpretation [...] NUCLEATED RBCS (test code = 0.00 K/UL 00094) CBC W/AUTO [id number] 00:00:00 Test Item Value Reference Range Interpretation [...] NUCLEATED RBCS (test code = 0.00 K/UL 63265) COMPREHENSIVE METABOLIC [id number] 00:00:00 Test Item Value Reference Range Interpretation Comments GLUCOSE (test code = 2217) 108 MG/DL BUN (test code = 2208) 17 MG/DL CREATININE (test code = 2214) 0.84 MG/DL eGFR (2020 CKD-EPI) (test code 88 ML/MIN/1.73 = 82841) CALC BUN/CREAT (test code = 20 RATIO [...] code = 2219) 28 U/L COMPREHENSIVE METABOLIC [id number] 00:00:00 Test Item Value Reference Range Interpretation Comments GLUCOSE (test code = 2217) 108 MG/DL BUN (test code = 2208) 17 MG/DL CREATININE (test code = 2214) 0.84 MG/DL eGFR (2020 CKD-EPI) (test code 88 ML/MIN/1.73 = 64031) CALC BUN/CREAT (test code = 20 RATIO [...] code = 2219) 28 U/L CBC W/AUTO [id number] 00:00:00 Test Item Value Reference Range Interpretation [...] NUCLEATED RBCS (test code = 0.00 K/UL 34469) CBC W/AUTO [id number] 00:00:00 Test Item Value Reference Range Interpretation [...] NUCLEATED RBCS (test code = 0.00 K/UL 17548) CBC W/AUTO [id number] 00:00:00 Test Item Value Reference Range Interpretation [...] NUCLEATED RBCS (test code = 0.00 K/UL 23021) COMPREHENSIVE METABOLIC [id number] 00:00:00 Test Item Value Reference Range Interpretation Comments GLUCOSE (test code = 2217) 108 MG/DL BUN (test code = 2208) 17 MG/DL CREATININE (test code = 2214) 0.84 MG/DL eGFR (2020 CKD-EPI) (test code 88 ML/MIN/1.73 = 68921) CALC BUN/CREAT (test code = 20 RATIO [...] code = 2219) 28 U/L COMPREHENSIVE METABOLIC [id number] 00:00:00 Test Item Value Reference Range Interpretation Comments GLUCOSE (test code = 2217) 108 MG/DL BUN (test code = 2208) 17 MG/DL CREATININE (test code = 2214) 0.84 MG/DL eGFR (2020 CKD-EPI) (test code 88 ML/MIN/1.73 = 89928) CALC BUN/CREAT (test code = 20 RATIO [...] code = 2219) 28 U/L CBC W/AUTO [id number] 00:00:00 Test Item Value Reference Range Interpretation [...] NUCLEATED RBCS (test code = 0.00 K/UL 38236) CBC W/AUTO [id number] 00:00:00 Test Item Value Reference Range Interpretation [...] NUCLEATED RBCS (test code = 0.00 K/UL 77362) CBC W/AUTO [id number] 00:00:00 Test Item Value Reference Range Interpretation [...] NUCLEATED RBCS (test code = 0.00 K/UL 41057) COMPREHENSIVE METABOLIC [id number] 00:00:00 Test Item Value Reference Range Interpretation Comments GLUCOSE (test code = 2217) 108 MG/DL BUN (test code = 2208) 17 MG/DL CREATININE (test code = 2214) 0.84 MG/DL eGFR (2020 CKD-EPI) (test code 88 ML/MIN/1.73 = 70055) CALC BUN/CREAT (test code = 20 RATIO [...] code = 2219) 28 U/L COMPREHENSIVE METABOLIC [id number] 00:00:00 Test Item Value Reference Range Interpretation Comments GLUCOSE (test code = 2217) 108 MG/DL BUN (test code = 2208) 17 MG/DL CREATININE (test code = 2214) 0.84 MG/DL eGFR (2020 CKD-EPI) (test code 88 ML/MIN/1.73 = 19657) CALC BUN/CREAT (test code = 20 RATIO [...] code = 2219) 28 U/L CBC W/AUTO [id number] 00:00:00 Test Item Value Reference Range Interpretation [...] NUCLEATED RBCS (test code = 0.00 K/UL 66619) CBC W/AUTO [id number] 00:00:00 Test Item Value Reference Range Interpretation [...] NUCLEATED RBCS (test code = 0.00 K/UL 83230) CBC W/AUTO [id number] 00:00:00 Test Item Value Reference Range Interpretation [...] NUCLEATED RBCS (test code = 0.00 K/UL 47516) COMPREHENSIVE METABOLIC [id number] 00:00:00 Test Item Value Reference Range Interpretation Comments GLUCOSE (test code = 2217) 108 MG/DL BUN (test code = 2208) 17 MG/DL CREATININE (test code = 2214) 0.84 MG/DL eGFR (2020 CKD-EPI) (test code 88 ML/MIN/1.73 = 87836) CALC BUN/CREAT (test code = 20 RATIO [...] code = 2219) 28 U/L COMPREHENSIVE METABOLIC [id number] 00:00:00 Test Item Value Reference Range Interpretation Comments GLUCOSE (test code = 2217) 108 MG/DL BUN (test code = 2208) 17 MG/DL CREATININE (test code = 2214) 0.84 MG/DL eGFR (2020 CKD-EPI) (test code 88 ML/MIN/1.73 = 60112) CALC BUN/CREAT (test code = 20 RATIO [...] code = 2219) 28 U/L CBC W/AUTO [id number] 00:00:00 Test Item Value Reference Range Interpretation [...] NUCLEATED RBCS (test code = 0.00 K/UL 02720) CBC W/AUTO [id number] 00:00:00 Test Item Value Reference Range Interpretation [...] NUCLEATED RBCS (test code = 0.00 K/UL 41235) CBC W/AUTO [id number] 00:00:00 Test Item Value Reference Range Interpretation [...] NUCLEATED RBCS (test code = 0.00 K/UL 74727) COMPREHENSIVE METABOLIC [id number] 00:00:00 Test Item Value Reference Range Interpretation Comments GLUCOSE (test code = 2217) 108 MG/DL BUN (test code = 2208) 17 MG/DL CREATININE (test code = 2214) 0.84 MG/DL eGFR (2020 CKD-EPI) (test code 88 ML/MIN/1.73 = 40824) CALC BUN/CREAT (test code = 20 RATIO [...] code = 2219) 28 U/L COMPREHENSIVE METABOLIC [id number] 00:00:00 Test Item Value Reference Range Interpretation Comments GLUCOSE (test code = 2217) 108 MG/DL BUN (test code = 2208) 17 MG/DL CREATININE (test code = 2214) 0.84 MG/DL eGFR (2020 CKD-EPI) (test code 88 ML/MIN/1.73 = 21076) CALC BUN/CREAT (test code = 20 RATIO [...] code = 2219) 28 U/L CBC W/AUTO [id number] 00:00:00 Test Item Value Reference Range Interpretation [...] NUCLEATED RBCS (test code = 0.00 K/UL 64574) CBC W/AUTO [id number] 00:00:00 Test Item Value Reference Range Interpretation [...] NUCLEATED RBCS (test code = 0.00 K/UL 53819) COMPREHENSIVE METABOLIC [id number] 00:00:00 Test Item Value Reference Range Interpretation Comments GLUCOSE (test code = 2217) 108 MG/DL BUN (test code = 2208) 17 MG/DL CREATININE (test code = 2214) 0.84 MG/DL eGFR (2020 CKD-EPI) (test code 88 ML/MIN/1.73 = 19664) CALC BUN/CREAT (test code = 20 RATIO [...] code = 2219) 28 U/L CBC W/AUTO [id number] 00:00:00 Test Item Value Reference Range Interpretation [...] NUCLEATED RBCS (test code = 0.00 K/UL 28771) CBC W/AUTO [id number] 00:00:00 Test Item Value Reference Range Interpretation [...] NUCLEATED RBCS (test code = 0.00 K/UL 86760) CBC W/AUTO [id number] 00:00:00 Test Item Value Reference Range Interpretation [...] NUCLEATED RBCS (test code = 0.00 K/UL 73349) COMPREHENSIVE METABOLIC [id number] 00:00:00 Test Item Value Reference Range Interpretation Comments GLUCOSE (test code = 2217) 108 MG/DL BUN (test code = 2208) 17 MG/DL CREATININE (test code = 2214) 0.84 MG/DL eGFR (2020 CKD-EPI) (test code 88 ML/MIN/1.73 = 79887) CALC BUN/CREAT (test code = 20 RATIO [...] code = 2219) 28 U/L COMPREHENSIVE METABOLIC [id number] 00:00:00 Test Item Value Reference Range Interpretation Comments GLUCOSE (test code = 2217) 108 MG/DL BUN (test code = 2208) 17 MG/DL CREATININE (test code = 2214) 0.84 MG/DL eGFR (2020 CKD-EPI) (test code 88 ML/MIN/1.73 = 65126) CALC BUN/CREAT (test code = 20 RATIO [...] code = 2219) 28 U/L CBC W/AUTO [id number] 00:00:00 Test Item Value Reference Range Interpretation [...] NUCLEATED RBCS (test code = 0.00 K/UL 83407) CBC W/AUTO [id number] 00:00:00 Test Item Value Reference Range Interpretation [...] NUCLEATED RBCS (test code = 0.00 K/UL 63896) CBC W/AUTO [id number] 00:00:00 Test Item Value Reference Range Interpretation [...] NUCLEATED RBCS (test code = 0.00 K/UL 92941) COMPREHENSIVE METABOLIC [id number] 00:00:00 Test Item Value Reference Range Interpretation Comments GLUCOSE (test code = 2217) 108 MG/DL BUN (test code = 2208) 17 MG/DL CREATININE (test code = 2214) 0.84 MG/DL eGFR (2020 CKD-EPI) (test code 88 ML/MIN/1.73 = 48098) CALC BUN/CREAT (test code = 20 RATIO [...] code = 2219) 28 U/L COMPREHENSIVE METABOLIC [id number] 00:00:00 Test Item Value Reference Range Interpretation Comments GLUCOSE (test code = 2217) 108 MG/DL BUN (test code = 2208) 17 MG/DL CREATININE (test code = 2214) 0.84 MG/DL eGFR (2020 CKD-EPI) (test code 88 ML/MIN/1.73 = 58986) CALC BUN/CREAT (test code = 20 RATIO [...] code = 2219) 28 U/L CBC W/AUTO [id number] 00:00:00 Test Item Value Reference Range Interpretation [...] NUCLEATED RBCS (test code = 0.00 K/UL 48984) CBC W/AUTO [id number] 00:00:00 Test Item Value Reference Range Interpretation [...] NUCLEATED RBCS (test code = 0.00 K/UL 65032) CBC W/AUTO [id number] 00:00:00 Test Item Value Reference Range Interpretation [...] NUCLEATED RBCS (test code = 0.00 K/UL 44835) COMPREHENSIVE METABOLIC [id number] 00:00:00 Test Item Value Reference Range Interpretation Comments GLUCOSE (test code = 2217) 108 MG/DL BUN (test code = 2208) 17 MG/DL CREATININE (test code = 2214) 0.84 MG/DL eGFR (2020 CKD-EPI) (test code 88 ML/MIN/1.73 = 14655) CALC BUN/CREAT (test code = 20 RATIO [...] code = 2219) 28 U/L COMPREHENSIVE METABOLIC [id number] 00:00:00 Test Item Value Reference Range Interpretation Comments GLUCOSE (test code = 2217) 108 MG/DL BUN (test code = 2208) 17 MG/DL CREATININE (test code = 2214) 0.84 MG/DL eGFR (2020 CKD-EPI) (test code 88 ML/MIN/1.73 = 21964) CALC BUN/CREAT (test code = 20 RATIO [...] = 2219) 28 U/L COMP. METABOLIC PANEL ([id number] 15:36:43 Test Item Value Reference Range Interpretation Comments NA (test code = 133 mmol/L 135-145 L 6518936584) K (test code = 4.8 mmol/L 3.5-5.0 7191389015) CL (test code = 96 mmol/L 98-108 L 3229199243) CO2 TOTAL (test code = 21 mmol/L 23-31 L 3082397661) AGAP (test code = 2-16 2081321230) BUN (test code = 30 mg/dL 7-23 H 8329531797) GLUCOSE (test code = 405 mg/dL 70-110 H 5770911243) CREATININE (test code = 0.74 mg/dL 0.50-1.04 6738179774) TOTAL BILI (test code = 0.6 mg/dL 0.1-1.6 4784690656) CALCIUM (test code = 9.7 mg/dL 8.6-10.6 6441068228) T PROTEIN (test code = 7.9 g/dL 6.3-8.2 7344193503) ALBUMIN (test code = 4.9 g/dL 3.5-5.0 5587401676) ALK PHOS (test code = 66 U/L 34-122 2107430687) ALTv (test code = 37 U/L 5-35 H 1742-6) AST(SGOT) (test code = 31 U/L 13-40 3898636791) eGFR (test code = mL/min/1.73m2 7703006270) CALVIN (test code = CALVIN) Association of [...] tests). Lab Interpretation Abnormal (test code = 94227-7) [facility] WITH [id number] 15:26:02 Test Item Value Reference Range Interpretation Comments WBC (test code = See_Comment [Automated 3190-2) message] The sy stem which generated this [...] (test code = 38.2 fL 39.0-49.9 L 56015-4) RDW-CV (test code = 12.9 % 12.0-15.5 788-0) PLT (test code = See_Comment [Automated 777-3) message] The sy stem which generated this result transmitted reference range : 166 - 358 10*3/ ?L. The reference r doretha was not used to interpret this result as normal/abnormal . MPV (test code = 9.8 fL 9.5-12.9 81745-9) NRBC/100 WBC (test See_Comment [Automat ed code = 3760834530) message] The system which generated this result transmitted reference range : 0.0 - 10.0 /100 WBCs. The refer ence range was not u sed to interpret th is result as normal/abnormal . NRBC x10^3 (test code <0.01 See_Comment [Auto mated = 2779024436) message] The s ystem which generated this result transmitted reference range : 10*3/?L. The reference range was not used to interpret this result as normal/abnormal . GRAN MAT (NEUT) % 50.6 % (test code = 770-8) IMM GRAN % (test code 0.80 % = 2424384912) LYMPH % (test code = 37.0 % 736-9) MONO % (test code = 8.5 % 5905-5) EOS % (test code = 2.2 % 713-8) BASO % (test code = 0.9 % 706-2) GRAN MAT x10^3(ANC) 3.86 10*3/uL 1.88-7.09 (test code = 5502111719) IMM GRAN x10^3 (test 0.06 10*3/uL 0.00-0.06 code = 5010397656) LYMPH x10^3 (test code 2.83 10*3/uL 1.32-3.29 = 731-0) MONO x10^3 (test code 0.65 10*3/uL 0.33-0.92 = 742-7) EOS x10^3 (test code = 0.17 10*3/uL 0.03-0.39 711-2) BASO x10^3 (test code 0.07 10*3/uL 0.01-0.07 = 704-7) Lab Interpretation Abnormal (test code = 54252-7) [id number]00 Test Item Value Reference Range Interpretation Comments POCT PREG (test code = 1605) negative On board controls acceptable with present C Line (test code = 3574) POCT PREG LOT # (test code = 3575) [id number] POCT PREG TEST DATE (test 09/07/2022 code = 3576) Lab Interpretation (test code = Normal 19599-5) [id number] 08:37:00 Test Item Value Reference Range Interpretation Comments GLUBED (test code = GLUBED) 260 mg/dL 60-125 H [id number] 06:42:00 Test Item Value Reference Range Interpretation Comments GLUBED (test code = GLUBED) 265 mg/dL 60-125 H COVID 19 Asymptomatic IH [id number] 17:24:00 Test Item Value Reference Range Interpretation Comments COVID 19 Asymptomatic IH AG (test NEGATIVE NEGATIVE code = COVNONPUIAG) COMPREHENSIVE METABOLIC [id number] 05:38:33 Test Item Value Reference Range Interpretation Comments GLUCOSE (test code = 411 MG/DL 70-99 H 221) BUN (test code = 24 MG/DL 6-20 H 2207) CREATININE (test 1.13 MG/DL 0.60-1.30 code = 2213) eGFR (2020 CKD-EPI) 62 ML/MIN/1.73 >60 (test code = 43389) CALC BUN/CREAT (test 21 RATIO 6-28 code = 2235) SODIUM (test code = 136 MEQ/L 398-025 3240) POTASSIUM (test code 5.0 MEQ/L 3.5-5.4 = [...] RATIO (test 1.4 RATIO 1.0-2.6 code = 2233) BILIRUBIN, TOTAL 0.3 MG/DL See_Comment [Automated message] [...] = 49 U/L 5-40 H 2218) LIPID [id number] 05:38:33 Test Item Value Reference Range Interpretation [...] MOREINFORMATION , SEE CLIENT ANNOUNCE MENT AT [email or web address] CalcLDL-C RISK RATIO LDL/HDL 2.79 RATIO <3.22 UNABLE T O CALCULATE (test code = 2238) UNLESS OT HERWISE INDICATED, ALL TESTING PERFORMED [facility] PATHOLOGY [facility] [employer]. [address] [place] [address] 4 LABORATORY DIRE CTOR: NOAH TODD M.D. CLIA NUMBER [id number] [place]. [id number] HEMOGLOBIN [id number] 03:55:33 Test Item Value Reference Range Interpretation Comments HEMOGLOBIN A1c (test 11.9 % 4.2-5.6 H [facility] code = 00227) ASSOCIATION [employer] FOR HGB A1C: PREDIABETES/INC REASED [...] TESTING OR LABORATORY C ONSULTATION. COMPREHENSIVE METABOLIC [id number] 00:00:00 Test Item Value Reference Range Interpretation Comments GLUCOSE (test code = 2217) 411 MG/DL BUN (test code = 2208) 24 MG/DL CREATININE (test code = 2214) 1.13 MG/DL eGFR (2020 CKD-EPI) (test code 62 ML/MIN/1.73 = 31510) CALC BUN/CREAT (test code = 21 RATIO [...] code = 2219) 49 U/L COMPREHENSIVE METABOLIC [id number] 00:00:00 Test Item Value Reference Range Interpretation Comments GLUCOSE (test code = 2217) 411 MG/DL BUN (test code = 2208) 24 MG/DL CREATININE (test code = 2214) 1.13 MG/DL eGFR (2020 CKD-EPI) (test code 62 ML/MIN/1.73 = 96084) CALC BUN/CREAT (test code = 21 RATIO [...] (test code = 2219) 49 U/L HEMOGLOBIN [id number] 00:00:00 Test Item Value Reference Range Interpretation Comments HEMOGLOBIN A1c (test code = 06291) 11.9 % HEMOGLOBIN [id number] 00:00:00 Test Item Value Reference Range Interpretation Comments HEMOGLOBIN A1c (test code = 65526) 11.9 % HEMOGLOBIN [id number] 00:00:00 Test Item Value Reference Range Interpretation Comments HEMOGLOBIN A1c (test code = 72026) 11.9 % LIPID [id number] 00:00:00 Test Item Value Reference Range Interpretation Comments CHOLESTEROL (test code = 2210) 176 MG/DL TRIGLYCERIDES (test code = 2232) 614 MG/DL HDL CHOLESTEROL (test code = 28 MG/DL 2220) CALC LDL CHOL (test code = 2237) (NOTE) MG/DL RISK RATIO LDL/HDL (test code = 2.79 RATIO 2238) LIPID [id number] 00:00:00 Test Item Value Reference Range Interpretation Comments CHOLESTEROL (test code = 2210) 176 MG/DL TRIGLYCERIDES (test code = 2232) 614 MG/DL HDL CHOLESTEROL (test code = 28 MG/DL 2220) CALC LDL CHOL (test code = 2237) (NOTE) MG/DL RISK RATIO LDL/HDL (test code = 2.79 RATIO 2238) COMPREHENSIVE METABOLIC [id number] 00:00:00 Test Item Value Reference Range Interpretation Comments GLUCOSE (test code = 2217) 411 MG/DL BUN (test code = 2208) 24 MG/DL CREATININE (test code = 2214) 1.13 MG/DL eGFR (2020 CKD-EPI) (test code 62 ML/MIN/1.73 = 20924) CALC BUN/CREAT (test code = 21 RATIO [...] code = 2219) 49 U/L COMPREHENSIVE METABOLIC [id number] 00:00:00 Test Item Value Reference Range Interpretation Comments GLUCOSE (test code = 2217) 411 MG/DL BUN (test code = 2208) 24 MG/DL CREATININE (test code = 2214) 1.13 MG/DL eGFR (2020 CKD-EPI) (test code 62 ML/MIN/1.73 = 84006) CALC BUN/CREAT (test code = 21 RATIO [...] (test code = 2219) 49 U/L HEMOGLOBIN [id number] 00:00:00 Test Item Value Reference Range Interpretation Comments HEMOGLOBIN A1c (test code = 87650) 11.9 % HEMOGLOBIN [id number] 00:00:00 Test Item Value Reference Range Interpretation Comments HEMOGLOBIN A1c (test code = 39724) 11.9 % HEMOGLOBIN [id number] 00:00:00 Test Item Value Reference Range Interpretation Comments HEMOGLOBIN A1c (test code = 89792) 11.9 % LIPID [id number] 00:00:00 Test Item Value Reference Range Interpretation Comments CHOLESTEROL (test code = 2210) 176 MG/DL TRIGLYCERIDES (test code = 2232) 614 MG/DL HDL CHOLESTEROL (test code = 28 MG/DL 2219) CALC LDL CHOL (test code = 2237) (NOTE) MG/DL RISK RATIO LDL/HDL (test code = 2.79 RATIO 2238) LIPID [id number] 00:00:00 Test Item Value Reference Range Interpretation Comments CHOLESTEROL (test code = 2210) 176 MG/DL TRIGLYCERIDES (test code = 2232) 614 MG/DL HDL CHOLESTEROL (test code = 28 MG/DL 0) CALC LDL CHOL (test code = 2237) (NOTE) MG/DL RISK RATIO LDL/HDL (test code = 2.79 RATIO 2238) COMPREHENSIVE METABOLIC [id number] 00:00:00 Test Item Value Reference Range Interpretation Comments GLUCOSE (test code = 2217) 411 MG/DL BUN (test code = 2208) 24 MG/DL CREATININE (test code = 2214) 1.13 MG/DL eGFR (2020 CKD-EPI) (test code 62 ML/MIN/1.73 = 98036) CALC BUN/CREAT (test code = 21 RATIO [...] code = 2203) AST (test code = 221) 38 U/L ALT (test code = 2219) 49 U/L COMPREHENSIVE METABOLIC [id number] 00:00:00 Test Item Value Reference Range Interpretation Comments GLUCOSE (test code = 2217) 411 MG/DL BUN (test code = 2208) 24 MG/DL CREATININE (test code = 2214) 1.13 MG/DL eGFR (2020 CKD-EPI) (test code 62 ML/MIN/1.73 = 02805) CALC BUN/CREAT (test code = 21 RATIO [...] (test code = 2219) 49 U/L HEMOGLOBIN [id number] 00:00:00 Test Item Value Reference Range Interpretation Comments HEMOGLOBIN A1c (test code = 43408) 11.9 % HEMOGLOBIN [id number] 00:00:00 Test Item Value Reference Range Interpretation Comments HEMOGLOBIN A1c (test code = 25995) 11.9 % HEMOGLOBIN [id number] 00:00:00 Test Item Value Reference Range Interpretation Comments HEMOGLOBIN A1c (test code = 01434) 11.9 % LIPID [id number] 00:00:00 Test Item Value Reference Range Interpretation Comments CHOLESTEROL (test code = 2210) 176 MG/DL TRIGLYCERIDES (test code = 2232) 614 MG/DL HDL CHOLESTEROL (test code = 28 MG/DL 2220) CALC LDL CHOL (test code = 2237) (NOTE) MG/DL RISK RATIO LDL/HDL (test code = 2.79 RATIO 2238) LIPID [id number] 00:00:00 Test Item Value Reference Range Interpretation Comments CHOLESTEROL (test code = 2210) 176 MG/DL TRIGLYCERIDES (test code = 2232) 614 MG/DL HDL CHOLESTEROL (test code = 28 MG/DL 2220) CALC LDL CHOL (test code = 2237) (NOTE) MG/DL RISK RATIO LDL/HDL (test code = 2.79 RATIO 2238) COMPREHENSIVE METABOLIC [id number] 00:00:00 Test Item Value Reference Range Interpretation Comments GLUCOSE (test code = 2217) 411 MG/DL BUN (test code = 2208) 24 MG/DL CREATININE (test code = 2214) 1.13 MG/DL eGFR (2020 CKD-EPI) (test code 62 ML/MIN/1.73 = 57944) CALC BUN/CREAT (test code = 21 RATIO [...] code = 2219) 49 U/L COMPREHENSIVE METABOLIC [id number] 00:00:00 Test Item Value Reference Range Interpretation Comments GLUCOSE (test code = 7) 411 MG/DL BUN (test code = 2208) 24 MG/DL CREATININE (test code = 2214) 1.13 MG/DL eGFR (2020 CKD-EPI) (test code 62 ML/MIN/1.73 = 07605) CALC BUN/CREAT (test code = 21 RATIO [...] (test code = 2219) 49 U/L HEMOGLOBIN [id number] 00:00:00 Test Item Value Reference Range Interpretation Comments HEMOGLOBIN A1c (test code = 12724) 11.9 % HEMOGLOBIN [id number] 00:00:00 Test Item Value Reference Range Interpretation Comments HEMOGLOBIN A1c (test code = 63607) 11.9 % HEMOGLOBIN [id number] 00:00:00 Test Item Value Reference Range Interpretation Comments HEMOGLOBIN A1c (test code = 87662) 11.9 % LIPID [id number] 00:00:00 Test Item Value Reference Range Interpretation Comments CHOLESTEROL (test code = 2210) 176 MG/DL TRIGLYCERIDES (test code = 2232) 614 MG/DL HDL CHOLESTEROL (test code = 28 MG/DL 2220) CALC LDL CHOL (test code = 2237) (NOTE) MG/DL RISK RATIO LDL/HDL (test code = 2.79 RATIO 2238) LIPID [id number] 00:00:00 Test Item Value Reference Range Interpretation Comments CHOLESTEROL (test code = 2210) 176 MG/DL TRIGLYCERIDES (test code = 2232) 614 MG/DL HDL CHOLESTEROL (test code = 28 MG/DL 2220) CALC LDL CHOL (test code = 2237) (NOTE) MG/DL RISK RATIO LDL/HDL (test code = 2.79 RATIO 2238) COMPREHENSIVE METABOLIC [id number] 00:00:00 Test Item Value Reference Range Interpretation Comments GLUCOSE (test code = 2217) 411 MG/DL BUN (test code = 2208) 24 MG/DL CREATININE (test code = 2214) 1.13 MG/DL eGFR (2020 CKD-EPI) (test code 62 ML/MIN/1.73 = 65018) CALC BUN/CREAT (test code = 21 RATIO [...] code = 2219) 49 U/L COMPREHENSIVE METABOLIC [id number] 00:00:00 Test Item Value Reference Range Interpretation Comments GLUCOSE (test code = 2217) 411 MG/DL BUN (test code = 2208) 24 MG/DL CREATININE (test code = 2214) 1.13 MG/DL eGFR (2020 CKD-EPI) (test code 62 ML/MIN/1.73 = 54289) CALC BUN/CREAT (test code = 21 RATIO [...] (test code = 2219) 49 U/L HEMOGLOBIN [id number] 00:00:00 Test Item Value Reference Range Interpretation Comments HEMOGLOBIN A1c (test code = 45146) 11.9 % HEMOGLOBIN [id number] 00:00:00 Test Item Value Reference Range Interpretation Comments HEMOGLOBIN A1c (test code = 45736) 11.9 % HEMOGLOBIN [id number] 00:00:00 Test Item Value Reference Range Interpretation Comments HEMOGLOBIN A1c (test code = 12504) 11.9 % LIPID [id number] 00:00:00 Test Item Value Reference Range Interpretation Comments CHOLESTEROL (test code = 2210) 176 MG/DL TRIGLYCERIDES (test code = 2232) 614 MG/DL HDL CHOLESTEROL (test code = 28 MG/DL 0) CALC LDL CHOL (test code = 2237) (NOTE) MG/DL RISK RATIO LDL/HDL (test code = 2.79 RATIO 2238) LIPID [id number] 00:00:00 Test Item Value Reference Range Interpretation Comments CHOLESTEROL (test code = 2210) 176 MG/DL TRIGLYCERIDES (test code = 2232) 614 MG/DL HDL CHOLESTEROL (test code = 28 MG/DL 2220) CALC LDL CHOL (test code = 2237) (NOTE) MG/DL RISK RATIO LDL/HDL (test code = 2.79 RATIO 2238) COMPREHENSIVE METABOLIC [id number] 00:00:00 Test Item Value Reference Range Interpretation Comments GLUCOSE (test code = 2217) 411 MG/DL BUN (test code = 2208) 24 MG/DL CREATININE (test code = 2214) 1.13 MG/DL eGFR (2020 CKD-EPI) (test code 62 ML/MIN/1.73 = 29633) CALC BUN/CREAT (test code = 21 RATIO [...] code = 2219) 49 U/L COMPREHENSIVE METABOLIC [id number] 00:00:00 Test Item Value Reference Range Interpretation Comments GLUCOSE (test code = 2217) 411 MG/DL BUN (test code = 2208) 24 MG/DL CREATININE (test code = 2214) 1.13 MG/DL eGFR (2020 CKD-EPI) (test code 62 ML/MIN/1.73 = 10580) CALC BUN/CREAT (test code = 21 RATIO [...] (test code = 2219) 49 U/L HEMOGLOBIN [id number] 00:00:00 Test Item Value Reference Range Interpretation Comments HEMOGLOBIN A1c (test code = 82746) 11.9 % HEMOGLOBIN [id number] 00:00:00 Test Item Value Reference Range Interpretation Comments HEMOGLOBIN A1c (test code = 97926) 11.9 % HEMOGLOBIN [id number] 00:00:00 Test Item Value Reference Range Interpretation Comments HEMOGLOBIN A1c (test code = 90657) 11.9 % LIPID [id number] 00:00:00 Test Item Value Reference Range Interpretation Comments CHOLESTEROL (test code = 2210) 176 MG/DL TRIGLYCERIDES (test code = 2232) 614 MG/DL HDL CHOLESTEROL (test code = 28 MG/DL 2220) CALC LDL CHOL (test code = 2237) (NOTE) MG/DL RISK RATIO LDL/HDL (test code = 2.79 RATIO 2238) LIPID [id number] 00:00:00 Test Item Value Reference Range Interpretation Comments CHOLESTEROL (test code = 2210) 176 MG/DL TRIGLYCERIDES (test code = 2232) 614 MG/DL HDL CHOLESTEROL (test code = 28 MG/DL 2220) CALC LDL CHOL (test code = 2237) (NOTE) MG/DL RISK RATIO LDL/HDL (test code = 2.79 RATIO 2238) COMPREHENSIVE METABOLIC [id number] 00:00:00 Test Item Value Reference Range Interpretation Comments GLUCOSE (test code = 2217) 411 MG/DL BUN (test code = 2208) 24 MG/DL CREATININE (test code = 2214) 1.13 MG/DL eGFR (2020 CKD-EPI) (test code 62 ML/MIN/1.73 = 70172) CALC BUN/CREAT (test code = 21 RATIO [...] code = 2219) 49 U/L COMPREHENSIVE METABOLIC [id number] 00:00:00 Test Item Value Reference Range Interpretation Comments GLUCOSE (test code = 2217) 411 MG/DL BUN (test code = 2208) 24 MG/DL CREATININE (test code = 2214) 1.13 MG/DL eGFR (2020 CKD-EPI) (test code 62 ML/MIN/1.73 = 48682) CALC BUN/CREAT (test code = 21 RATIO [...] (test code = 2219) 49 U/L HEMOGLOBIN [id number] 00:00:00 Test Item Value Reference Range Interpretation Comments HEMOGLOBIN A1c (test code = 33566) 11.9 % HEMOGLOBIN [id number] 00:00:00 Test Item Value Reference Range Interpretation Comments HEMOGLOBIN A1c (test code = 84476) 11.9 % HEMOGLOBIN [id number] 00:00:00 Test Item Value Reference Range Interpretation Comments HEMOGLOBIN A1c (test code = 65218) 11.9 % LIPID [id number] 00:00:00 Test Item Value Reference Range Interpretation Comments CHOLESTEROL (test code = 2210) 176 MG/DL TRIGLYCERIDES (test code = 2232) 614 MG/DL HDL CHOLESTEROL (test code = 28 MG/DL 2219) CALC LDL CHOL (test code = 2237) (NOTE) MG/DL RISK RATIO LDL/HDL (test code = 2.79 RATIO 2238) LIPID [id number] 00:00:00 Test Item Value Reference Range Interpretation Comments CHOLESTEROL (test code = 2210) 176 MG/DL TRIGLYCERIDES (test code = 2232) 614 MG/DL HDL CHOLESTEROL (test code = 28 MG/DL 0) CALC LDL CHOL (test code = 2237) (NOTE) MG/DL RISK RATIO LDL/HDL (test code = 2.79 RATIO 2238) COMPREHENSIVE METABOLIC [id number] 00:00:00 Test Item Value Reference Range Interpretation Comments GLUCOSE (test code = 2217) 411 MG/DL BUN (test code = 2208) 24 MG/DL CREATININE (test code = 2214) 1.13 MG/DL eGFR (2020 CKD-EPI) (test code 62 ML/MIN/1.73 = 34252) CALC BUN/CREAT (test code = 21 RATIO [...] (test code = 2219) 49 U/L HEMOGLOBIN [id number] 00:00:00 Test Item Value Reference Range Interpretation Comments HEMOGLOBIN A1c (test code = 97200) 11.9 % HEMOGLOBIN [id number] 00:00:00 Test Item Value Reference Range Interpretation Comments HEMOGLOBIN A1c (test code = 78013) 11.9 % LIPID [id number] 00:00:00 Test Item Value Reference Range Interpretation Comments CHOLESTEROL (test code = 2210) 176 MG/DL TRIGLYCERIDES (test code = 2232) 614 MG/DL HDL CHOLESTEROL (test code = 28 MG/DL 0) CALC LDL CHOL (test code = 2237) (NOTE) MG/DL RISK RATIO LDL/HDL (test code = 2.79 RATIO 2238) COMPREHENSIVE METABOLIC [id number] 00:00:00 Test Item Value Reference Range Interpretation Comments GLUCOSE (test code = 2217) 411 MG/DL BUN (test code = 2208) 24 MG/DL CREATININE (test code = 2214) 1.13 MG/DL eGFR (2020 CKD-EPI) (test code 62 ML/MIN/1.73 = 51118) CALC BUN/CREAT (test code = 21 RATIO [...] code = 2219) 49 U/L COMPREHENSIVE METABOLIC [id number] 00:00:00 Test Item Value Reference Range Interpretation Comments GLUCOSE (test code = 2217) 411 MG/DL BUN (test code = 2208) 24 MG/DL CREATININE (test code = 2214) 1.13 MG/DL eGFR (2020 CKD-EPI) (test code 62 ML/MIN/1.73 = 34796) CALC BUN/CREAT (test code = 21 RATIO [...] (test code = 2219) 49 U/L HEMOGLOBIN [id number] 00:00:00 Test Item Value Reference Range Interpretation Comments HEMOGLOBIN A1c (test code = 44349) 11.9 % HEMOGLOBIN [id number] 00:00:00 Test Item Value Reference Range Interpretation Comments HEMOGLOBIN A1c (test code = 61573) 11.9 % HEMOGLOBIN [id number] 00:00:00 Test Item Value Reference Range Interpretation Comments HEMOGLOBIN A1c (test code = 08667) 11.9 % LIPID [id number] 00:00:00 Test Item Value Reference Range Interpretation Comments CHOLESTEROL (test code = 2210) 176 MG/DL TRIGLYCERIDES (test code = 2232) 614 MG/DL HDL CHOLESTEROL (test code = 28 MG/DL 2220) CALC LDL CHOL (test code = 2237) (NOTE) MG/DL RISK RATIO LDL/HDL (test code = 2.79 RATIO 2238) LIPID [id number] 00:00:00 Test Item Value Reference Range Interpretation Comments CHOLESTEROL (test code = 2210) 176 MG/DL TRIGLYCERIDES (test code = 2232) 614 MG/DL HDL CHOLESTEROL (test code = 28 MG/DL 2220) CALC LDL CHOL (test code = 2237) (NOTE) MG/DL RISK RATIO LDL/HDL (test code = 2.79 RATIO 2238) COMPREHENSIVE METABOLIC [id number] 00:00:00 Test Item Value Reference Range Interpretation Comments GLUCOSE (test code = 2217) 411 MG/DL BUN (test code = 2208) 24 MG/DL CREATININE (test code = 2214) 1.13 MG/DL eGFR (2020 CKD-EPI) (test code 62 ML/MIN/1.73 = 24513) CALC BUN/CREAT (test code = 21 RATIO [...] code = 2219) 49 U/L COMPREHENSIVE METABOLIC [id number] 00:00:00 Test Item Value Reference Range Interpretation Comments GLUCOSE (test code = 2217) 411 MG/DL BUN (test code = 2208) 24 MG/DL CREATININE (test code = 2214) 1.13 MG/DL eGFR (2020 CKD-EPI) (test code 62 ML/MIN/1.73 = 81826) CALC BUN/CREAT (test code = 21 RATIO [...] (test code = 2219) 49 U/L HEMOGLOBIN [id number] 00:00:00 Test Item Value Reference Range Interpretation Comments HEMOGLOBIN A1c (test code = 17730) 11.9 % HEMOGLOBIN [id number] 00:00:00 Test Item Value Reference Range Interpretation Comments HEMOGLOBIN A1c (test code = 16365) 11.9 % HEMOGLOBIN [id number] 00:00:00 Test Item Value Reference Range Interpretation Comments HEMOGLOBIN A1c (test code = 66321) 11.9 % LIPID [id number] 00:00:00 Test Item Value Reference Range Interpretation Comments CHOLESTEROL (test code = 2210) 176 MG/DL TRIGLYCERIDES (test code = 2232) 614 MG/DL HDL CHOLESTEROL (test code = 28 MG/DL 2220) CALC LDL CHOL (test code = 2237) (NOTE) MG/DL RISK RATIO LDL/HDL (test code = 2.79 RATIO 2238) LIPID [id number] 00:00:00 Test Item Value Reference Range Interpretation Comments CHOLESTEROL (test code = 2210) 176 MG/DL TRIGLYCERIDES (test code = 2232) 614 MG/DL HDL CHOLESTEROL (test code = 28 MG/DL 2220) CALC LDL CHOL (test code = 2237) (NOTE) MG/DL RISK RATIO LDL/HDL (test code = 2.79 RATIO 2238) COMPREHENSIVE METABOLIC [id number] 00:00:00 Test Item Value Reference Range Interpretation Comments GLUCOSE (test code = 2217) 411 MG/DL BUN (test code = 2208) 24 MG/DL CREATININE (test code = 2214) 1.13 MG/DL eGFR (2020 CKD-EPI) (test code 62 ML/MIN/1.73 = 54297) CALC BUN/CREAT (test code = 21 RATIO [...] code = 2219) 49 U/L COMPREHENSIVE METABOLIC [id number] 00:00:00 Test Item Value Reference Range Interpretation Comments GLUCOSE (test code = 2217) 411 MG/DL BUN (test code = 2208) 24 MG/DL CREATININE (test code = 2214) 1.13 MG/DL eGFR (2020 CKD-EPI) (test code 62 ML/MIN/1.73 = 28679) CALC BUN/CREAT (test code = 21 RATIO [...] (test code = 2219) 49 U/L HEMOGLOBIN [id number] 00:00:00 Test Item Value Reference Range Interpretation Comments HEMOGLOBIN A1c (test code = 22308) 11.9 % HEMOGLOBIN [id number] 00:00:00 Test Item Value Reference Range Interpretation Comments HEMOGLOBIN A1c (test code = 64310) 11.9 % HEMOGLOBIN [id number] 00:00:00 Test Item Value Reference Range Interpretation Comments HEMOGLOBIN A1c (test code = 11812) 11.9 % LIPID [id number] 00:00:00 Test Item Value Reference Range Interpretation Comments CHOLESTEROL (test code = 2210) 176 MG/DL TRIGLYCERIDES (test code = 2232) 614 MG/DL HDL CHOLESTEROL (test code = 28 MG/DL 2219) CALC LDL CHOL (test code = 2237) (NOTE) MG/DL RISK RATIO LDL/HDL (test code = 2.79 RATIO 8) LIPID [id number] 00:00:00 Test Item Value Reference Range Interpretation Comments CHOLESTEROL (test code = 2210) 176 MG/DL TRIGLYCERIDES (test code = 2232) 614 MG/DL HDL CHOLESTEROL (test code = 28 MG/DL 2219) CALC LDL CHOL (test code = 2237) (NOTE) MG/DL RISK RATIO LDL/HDL (test code = 2.79 RATIO 2238) CREATINE [id number] 13:35:13 Test Item Value Reference Range Interpretation Comments CK (test code = 5759308507) 71 U/L 33-194 Lab Interpretation (test code = Normal 58630-9) [facility] GLUCOSE (AUTOMATED)2021-06-18 13:07:35 Test Item Value Reference Range Interpretation Comments POCT GLU (test code = 5231576292) 351 mg/dL 70-110 H Lab Interpretation (test code = Abnormal 90775-2) [facility] GLUCOSE(AGE >30DAYS)2021-06-18 13:04:00 Test Item Value Reference Range Interpretation Comments POCT Glu (age>30days) (test code = 351 mg/dL 70-110 A 3342) Lab Interpretation (test code = Abnormal 77438-0) [facility]. Metabolic Panel (60123)2021-06-18 11:14:20 Test Item Value Reference Range Interpretation Comments NA (test code = 134 mmol/L 135-145 L 2758922116) K (test code = 4.6 mmol/L 3.5-5.0 2992910594) CL (test code = 103 mmol/L 98-108 6556895662) CO2 TOTAL (test code = 18 mmol/L 23-31 L 0465801884) AGAP (test code = 2-16 8373048667) BUN (test code = 30 mg/dL 7-23 H 4692471367) GLUCOSE (test code = 390 mg/dL 70-110 H 2449276876) CREATININE (test code = 0.93 mg/dL 0.50-1.04 2704651586) TOTAL BILI (test code = 0.4 mg/dL 0.1-1.8 2961714466) CALCIUM (test code = 10.0 mg/dL 8.6-10.6 0886769164) T PROTEIN (test code = 7.6 g/dL 6.3-8.2 6361111125) ALBUMIN (test code = 4.5 g/dL 3.5-5.0 4679221283) ALK PHOS (test code = 51 U/L 34-122 0387312597) ALTv (test code = 34 U/L 5-35 1742-6) AST(SGOT) (test code = 26 U/L 13-40 3584875993) eGFR (test code = mL/min/1.73m2 2280587420) CALVIN (test code = CALVIN) Association of [...] tests). Lab Interpretation Abnormal (test code = 82437-4) [facility] [id number] 11:06:00 Test Item Value Reference Range Interpretation Comments POCT PREG (test code = 1605) neg On board controls acceptable with yes C Line (test code = 3574) POCT PREG LOT # (test code = 3575) [id number] POCT PREG TEST DATE (test 08/10/2022 code = 3576) Lab Interpretation (test code = Normal 36111-4) [facility] with [id number] 11:00:39 Test Item Value Reference Range Interpretation [...] RDW-SD (test code = 40.1 fL 39.0-49.9 68277-2) RDW-CV (test code = 13.2 % 12.0-15.5 788-0) PLT (test code = See_Comment [Automated 777-3) message] The sy stem which generated this result transmitted reference range : 166 - 358 10*3/ ?L. The reference r doretha was not used to interpret this result as normal/abnormal . MPV (test code = 9.5 fL 9.5-12.9 30890-1) NRBC/100 WBC (test See_Comment [Automat ed code = 0734863377) message] The system which generated this result transmitted reference range : 0.0 - 10.0 /100 WBCs. The refer ence range was not u sed to interpret th is result as normal/abnormal . NRBC x10^3 (test code <0.01 See_Comment [Auto mated = [id number]) message] The s ystem which generated this result transmitted reference range : 10*3/?L. The reference range was not used to interpret this result as normal/abnormal . GRAN MAT (NEUT) % 43.7 % (test code = 770-8) IMM GRAN % (test code 0.70 % = 4168389971) LYMPH % (test code = 41.9 % 736-9) MONO % (test code = 8.8 % 5905-5) EOS % (test code = 3.6 % 713-8) BASO % (test code = 1.3 % 706-2) GRAN MAT x10^3(ANC) 2.68 10*3/uL 1.88-7.09 (test code = 2366341890) IMM GRAN x10^3 (test 0.04 10*3/uL 0.00-0.06 code = 8246949316) LYMPH x10^3 (test code 2.57 10*3/uL 1.32-3.29 = 731-0) MONO x10^3 (test code 0.54 10*3/uL 0.33-0.92 = 742-7) EOS x10^3 (test code = 0.22 10*3/uL 0.03-0.39 711-2) BASO x10^3 (test code 0.08 10*3/uL 0.01-0.07 H = 704-7) Lab Interpretation Abnormal (test code = 49353-7) [facility] [id number] 00:00:00 Test Item Value Reference Range Interpretation Comments ANDIE SPECIES (test code = ) NEGATIVE G. VAGINALIS (test code = 53446) NEGATIVE T. VAGINALIS (test code = 09893) NEGATIVE VAGINAL PATHOGENS DNA [id number] 00:00:00 Test Item Value Reference Range Interpretation Comments ANDIE SPECIES (test code = 15392) NEGATIVE G. VAGINALIS (test code = 40369) NEGATIVE T. VAGINALIS (test code = 95111) NEGATIVE VAGINAL PATHOGENS DNA [id number] 00:00:00 Test Item Value Reference Range Interpretation Comments ANDIE SPECIES (test code = 02876) NEGATIVE G. VAGINALIS (test code = 05626) NEGATIVE T. VAGINALIS (test code = 61043) NEGATIVE VAGINAL PATHOGENS DNA [id number] 00:00:00 Test Item Value Reference Range Interpretation Comments ANDIE SPECIES (test code = 31448) NEGATIVE G. VAGINALIS (test code = 20827) NEGATIVE T. VAGINALIS (test code = 10268) NEGATIVE VAGINAL PATHOGENS DNA [id number] 00:00:00 Test Item Value Reference Range Interpretation Comments ANDIE SPECIES (test code = 60705) NEGATIVE G. VAGINALIS (test code = 40030) NEGATIVE T. VAGINALIS (test code = 88123) NEGATIVE VAGINAL PATHOGENS DNA [id number] 00:00:00 Test Item Value Reference Range Interpretation Comments ANDIE SPECIES (test code = 89051) NEGATIVE G. VAGINALIS (test code = 83135) NEGATIVE T. VAGINALIS (test code = 63227) NEGATIVE VAGINAL PATHOGENS DNA [id number] 00:00:00 Test Item Value Reference Range Interpretation Comments ANDIE SPECIES (test code = 30625) NEGATIVE G. VAGINALIS (test code = 50029) NEGATIVE T. VAGINALIS (test code = 71780) NEGATIVE VAGINAL PATHOGENS DNA [id number] 00:00:00 Test Item Value Reference Range Interpretation Comments ANDIE SPECIES (test code = 27746) NEGATIVE G. VAGINALIS (test code = 62046) NEGATIVE T. VAGINALIS (test code = 70628) NEGATIVE VAGINAL PATHOGENS DNA [id number] 00:00:00 Test Item Value Reference Range Interpretation Comments ANDIE SPECIES (test code = 82565) NEGATIVE G. VAGINALIS (test code = 42710) NEGATIVE T. VAGINALIS (test code = 06051) NEGATIVE VAGINAL PATHOGENS DNA [id number] 00:00:00 Test Item Value Reference Range Interpretation Comments ANDIE SPECIES (test code = 53770) NEGATIVE G. VAGINALIS (test code = 34267) NEGATIVE T. VAGINALIS (test code = 60894) NEGATIVE VAGINAL PATHOGENS DNA [id number] 00:00:00 Test Item Value Reference Range Interpretation Comments ANDIE SPECIES (test code = 92511) NEGATIVE G. VAGINALIS (test code = 42815) NEGATIVE T. VAGINALIS (test code = 45110) NEGATIVE VAGINAL PATHOGENS DNA [id number] 00:00:00 Test Item Value Reference Range Interpretation Comments ANDIE SPECIES (test code = 32995) NEGATIVE G. VAGINALIS (test code = 52308) NEGATIVE T. VAGINALIS (test code = 15431) NEGATIVE VAGINAL PATHOGENS DNA [id number] 00:00:00 Test Item Value Reference Range Interpretation Comments ANDIE SPECIES (test code = 70553) NEGATIVE G. VAGINALIS (test code = 23617) NEGATIVE T. VAGINALIS (test code = 05146) NEGATIVE VAGINAL PATHOGENS DNA [id number] 00:00:00 Test Item Value Reference Range Interpretation Comments ANDIE SPECIES (test code = 95942) NEGATIVE G. VAGINALIS (test code = 46141) NEGATIVE T. VAGINALIS (test code = 67280) NEGATIVE VAGINAL PATHOGENS DNA [id number] 00:00:00 Test Item Value Reference Range Interpretation Comments ANDIE SPECIES (test code = 10709) NEGATIVE G. VAGINALIS (test code = 02304) NEGATIVE T. VAGINALIS (test code = 06695) NEGATIVE VAGINAL PATHOGENS DNA [id number] 00:00:00 Test Item Value Reference Range Interpretation Comments ANDIE SPECIES (test code = 33616) NEGATIVE G. VAGINALIS (test code = 59323) NEGATIVE T. VAGINALIS (test code = 39020) NEGATIVE VAGINAL PATHOGENS DNA [id number] 00:00:00 Test Item Value Reference Range Interpretation Comments ANDIE SPECIES (test code = 06727) NEGATIVE G. VAGINALIS (test code = 35531) NEGATIVE T. VAGINALIS (test code = 95679) NEGATIVE VAGINAL PATHOGENS DNA [id number] 00:00:00 Test Item Value Reference Range Interpretation Comments ANDIE SPECIES (test code = 46147) NEGATIVE G. VAGINALIS (test code = 87904) NEGATIVE T. VAGINALIS (test code = 90798) NEGATIVE VAGINAL PATHOGENS DNA [id number] 00:00:00 Test Item Value Reference Range Interpretation Comments ANDIE SPECIES (test code = 17836) NEGATIVE G. VAGINALIS (test code = 55153) NEGATIVE T. VAGINALIS (test code = 24465) NEGATIVE VAGINAL PATHOGENS DNA [id number] 00:00:00 Test Item Value Reference Range Interpretation Comments ANDIE SPECIES (test code = 86870) NEGATIVE G. VAGINALIS (test code = 88341) NEGATIVE T. VAGINALIS (test code = 29815) NEGATIVE VAGINAL PATHOGENS DNA [id number] 00:00:00 Test Item Value Reference Range Interpretation Comments ANDIE SPECIES (test code = 47828) NEGATIVE G. VAGINALIS (test code = 64096) NEGATIVE T. VAGINALIS (test code = 05066) NEGATIVE SARS-CoV-2 (COVID-19) by RT-PCR (HIGH RISK)2021-02-26 00:00:00 Test Item Value Reference Range Interpretation Comments SARS-CoV-2 INTERPRETATION (test NEGATIVE code = 22578) SOURCE (test code = 33387) NOT SPECIFIED SARS-CoV-2 (COVID-19) by RT-PCR (HIGH RISK)2021-02-26 00:00:00 Test Item Value Reference Range Interpretation Comments SARS-CoV-2 INTERPRETATION (test NEGATIVE code = 71275) SOURCE (test code = 10397) NOT SPECIFIED SARS-CoV-2 (COVID-19) by RT-PCR (HIGH RISK)2021-02-26 00:00:00 Test Item Value Reference Range Interpretation Comments SARS-CoV-2 INTERPRETATION (test NEGATIVE code = 35319) SOURCE (test code = 38314) NOT SPECIFIED SARS-CoV-2 (COVID-19) by RT-PCR (HIGH RISK)2021-02-26 00:00:00 Test Item Value Reference Range Interpretation Comments SARS-CoV-2 INTERPRETATION (test NEGATIVE code = 22787) SOURCE (test code = 06680) NOT SPECIFIED SARS-CoV-2 (COVID-19) by RT-PCR (HIGH RISK)2021-02-26 00:00:00 Test Item Value Reference Range Interpretation Comments SARS-CoV-2 INTERPRETATION (test NEGATIVE code = 70978) SOURCE (test code = 95532) NOT SPECIFIED SARS-CoV-2 (COVID-19) by RT-PCR (HIGH RISK)2021-02-26 00:00:00 Test Item Value Reference Range Interpretation Comments SARS-CoV-2 INTERPRETATION (test NEGATIVE code = 88078) SOURCE (test code = 91905) NOT SPECIFIED SARS-CoV-2 (COVID-19) by RT-PCR (HIGH RISK)2021-02-26 00:00:00 Test Item Value Reference Range Interpretation Comments SARS-CoV-2 INTERPRETATION (test NEGATIVE code = 34070) SOURCE (test code = 55812) NOT SPECIFIED SARS-CoV-2 (COVID-19) by RT-PCR (HIGH RISK)2021-02-26 00:00:00 Test Item Value Reference Range Interpretation Comments SARS-CoV-2 INTERPRETATION (test NEGATIVE code = 78298) SOURCE (test code = 92814) NOT SPECIFIED SARS-CoV-2 (COVID-19) by RT-PCR (HIGH RISK)2021-02-26 00:00:00 Test Item Value Reference Range Interpretation Comments SARS-CoV-2 INTERPRETATION (test NEGATIVE code = 85762) SOURCE (test code = 66114) NOT SPECIFIED SARS-CoV-2 (COVID-19) by RT-PCR (HIGH RISK)2021-02-26 00:00:00 Test Item Value Reference Range Interpretation Comments SARS-CoV-2 INTERPRETATION (test NEGATIVE code = 47607) SOURCE (test code = 35157) NOT SPECIFIED SARS-CoV-2 (COVID-19) by RT-PCR (HIGH RISK)2021-02-26 00:00:00 Test Item Value Reference Range Interpretation Comments SARS-CoV-2 INTERPRETATION (test NEGATIVE code = 34287) SOURCE (test code = 18797) NOT SPECIFIED SARS-CoV-2 (COVID-19) by RT-PCR (HIGH RISK)2021-02-26 00:00:00 Test Item Value Reference Range Interpretation Comments SARS-CoV-2 INTERPRETATION (test NEGATIVE code = 06677) SOURCE (test code = 03428) NOT SPECIFIED SARS-CoV-2 (COVID-19) by RT-PCR (HIGH RISK)2021-02-26 00:00:00 Test Item Value Reference Range Interpretation Comments SARS-CoV-2 INTERPRETATION (test NEGATIVE code = 27374) SOURCE (test code = 14954) NOT SPECIFIED SARS-CoV-2 (COVID-19) by RT-PCR (HIGH RISK)2021-02-26 00:00:00 Test Item Value Reference Range Interpretation Comments SARS-CoV-2 INTERPRETATION (test NEGATIVE code = 78963) SOURCE (test code = 49947) NOT SPECIFIED SARS-CoV-2 (COVID-19) by RT-PCR (HIGH RISK)2021-02-26 00:00:00 Test Item Value Reference Range Interpretation Comments SARS-CoV-2 INTERPRETATION (test NEGATIVE code = 31828) SOURCE (test code = 32563) NOT SPECIFIED SARS-CoV-2 (COVID-19) by RT-PCR (HIGH RISK)2021-02-26 00:00:00 Test Item Value Reference Range Interpretation Comments SARS-CoV-2 INTERPRETATION (test NEGATIVE code = 93625) SOURCE (test code = 01146) NOT SPECIFIED SARS-CoV-2 (COVID-19) by RT-PCR (HIGH RISK)2021-02-26 00:00:00 Test Item Value Reference Range Interpretation Comments SARS-CoV-2 INTERPRETATION (test NEGATIVE code = 55206) SOURCE (test code = 15661) NOT SPECIFIED SARS-CoV-2 (COVID-19) by RT-PCR (HIGH RISK)2021-02-26 00:00:00 Test Item Value Reference Range Interpretation Comments SARS-CoV-2 INTERPRETATION (test NEGATIVE code = 14209) SOURCE (test code = 35112) NOT SPECIFIED SARS-CoV-2 (COVID-19) by RT-PCR (HIGH RISK)2021-02-26 00:00:00 Test Item Value Reference Range Interpretation Comments SARS-CoV-2 INTERPRETATION (test NEGATIVE code = 36666) SOURCE (test code = 41618) NOT SPECIFIED SARS-CoV-2 (COVID-19) by RT-PCR (HIGH RISK)2021-02-26 00:00:00 Test Item Value Reference Range Interpretation Comments SARS-CoV-2 INTERPRETATION (test NEGATIVE code = 56473) SOURCE (test code = 77502) NOT SPECIFIED SARS-CoV-2 (COVID-19) by RT-PCR (HIGH RISK)2021-02-26 00:00:00 Test Item Value Reference Range Interpretation Comments SARS-CoV-2 INTERPRETATION (test NEGATIVE code = 87640) SOURCE (test code = 25959) NOT SPECIFIED CULTURE, URINE [ADDED]2021-02-13 00:00:00 Test Item Value Reference Range Interpretation Comments CULTURE, URINE (test SPECIMEN NUMBER: code = 34966) [id number] CULTURE, URINE [ADDED]2021-02-13 00:00:00 Test Item Value Reference Range Interpretation Comments CULTURE, URINE (test SPECIMEN NUMBER: code = 10333) [id number] CULTURE, URINE [ADDED]2021-02-13 00:00:00 Test Item Value Reference Range Interpretation Comments CULTURE, URINE (test SPECIMEN NUMBER: code = 91453) [id number] CULTURE, URINE [ADDED]2021-02-13 00:00:00 Test Item Value Reference Range Interpretation Comments CULTURE, URINE (test SPECIMEN NUMBER: code = 07316) [id number] CULTURE, URINE [ADDED]2021-02-13 00:00:00 Test Item Value Reference Range Interpretation Comments CULTURE, URINE (test SPECIMEN NUMBER: code = 50649) [id number] CULTURE, URINE [ADDED]2021-02-13 00:00:00 Test Item Value Reference Range Interpretation Comments CULTURE, URINE (test SPECIMEN NUMBER: code = 13919) [id number] CULTURE, URINE [ADDED]2021-02-13 00:00:00 Test Item Value Reference Range Interpretation Comments CULTURE, URINE (test SPECIMEN NUMBER: code = 47266) [id number] CULTURE, URINE [ADDED]2021-02-13 00:00:00 Test Item Value Reference Range Interpretation Comments CULTURE, URINE (test SPECIMEN NUMBER: code = 56284) [id number] CULTURE, URINE [ADDED]2021-02-13 00:00:00 Test Item Value Reference Range Interpretation Comments CULTURE, URINE (test SPECIMEN NUMBER: code = 85951) [id number] CULTURE, URINE [ADDED]2021-02-13 00:00:00 Test Item Value Reference Range Interpretation Comments CULTURE, URINE (test SPECIMEN NUMBER: code = 29349) [id number] CULTURE, URINE [ADDED]2021-02-13 00:00:00 Test Item Value Reference Range Interpretation Comments CULTURE, URINE (test SPECIMEN NUMBER: code = 61771) [id number] CULTURE, URINE [ADDED]2021-02-13 00:00:00 Test Item Value Reference Range Interpretation Comments CULTURE, URINE (test SPECIMEN NUMBER: code = 62035) [id number] CULTURE, URINE [ADDED]2021-02-13 00:00:00 Test Item Value Reference Range Interpretation Comments CULTURE, URINE (test SPECIMEN NUMBER: code = 28750) [id number] CULTURE, URINE [ADDED]2021-02-13 00:00:00 Test Item Value Reference Range Interpretation Comments CULTURE, URINE (test SPECIMEN NUMBER: code = 76570) [id number] CULTURE, URINE [ADDED]2021-02-13 00:00:00 Test Item Value Reference Range Interpretation Comments CULTURE, URINE (test SPECIMEN NUMBER: code = 15228) [id number] CULTURE, URINE [ADDED]2021-02-13 00:00:00 Test Item Value Reference Range Interpretation Comments CULTURE, URINE (test SPECIMEN NUMBER: code = 62872) [id number] CULTURE, URINE [ADDED]2021-02-13 00:00:00 Test Item Value Reference Range Interpretation Comments CULTURE, URINE (test SPECIMEN NUMBER: code = 87135) [id number] CULTURE, URINE [ADDED]2021-02-13 00:00:00 Test Item Value Reference Range Interpretation Comments CULTURE, URINE (test SPECIMEN NUMBER: code = 69613) [id number] CULTURE, URINE [ADDED]2021-02-13 00:00:00 Test Item Value Reference Range Interpretation Comments CULTURE, URINE (test SPECIMEN NUMBER: code = 27374) [id number] CULTURE, URINE [ADDED]2021-02-13 00:00:00 Test Item Value Reference Range Interpretation Comments CULTURE, URINE (test SPECIMEN NUMBER: code = 48266) [id number] CULTURE, URINE [ADDED]2021-02-13 00:00:00 Test Item Value Reference Range Interpretation Comments CULTURE, URINE (test SPECIMEN NUMBER: code = 62759) [id number] VAGINAL PATHOGENS DNA [id number] 00:00:00 Test Item Value Reference Range Interpretation Comments ANDIE SPECIES (test code = 86271) NEGATIVE G. VAGINALIS (test code = 98025) POSITIVE T. VAGINALIS (test code = 66327) NEGATIVE VAGINAL PATHOGENS DNA [id number] 00:00:00 Test Item Value Reference Range Interpretation Comments ANDIE SPECIES (test code = 42787) NEGATIVE G. VAGINALIS (test code = 68317) POSITIVE T. VAGINALIS (test code = 09542) NEGATIVE VAGINAL PATHOGENS DNA [id number] 00:00:00 Test Item Value Reference Range Interpretation Comments ANDIE SPECIES (test code = 31233) NEGATIVE G. VAGINALIS (test code = 12831) POSITIVE T. VAGINALIS (test code = 24822) NEGATIVE VAGINAL PATHOGENS DNA [id number] 00:00:00 Test Item Value Reference Range Interpretation Comments ANDIE SPECIES (test code = 41391) NEGATIVE G. VAGINALIS (test code = 22114) POSITIVE T. VAGINALIS (test code = 39069) NEGATIVE VAGINAL PATHOGENS DNA [id number] 00:00:00 Test Item Value Reference Range Interpretation Comments ANDIE SPECIES (test code = 59725) NEGATIVE G. VAGINALIS (test code = 99602) POSITIVE T. VAGINALIS (test code = 69409) NEGATIVE VAGINAL PATHOGENS DNA [id number] 00:00:00 Test Item Value Reference Range Interpretation Comments ANDIE SPECIES (test code = 39757) NEGATIVE G. VAGINALIS (test code = 84776) POSITIVE T. VAGINALIS (test code = 59765) NEGATIVE VAGINAL PATHOGENS DNA [id number] 00:00:00 Test Item Value Reference Range Interpretation Comments ANDIE SPECIES (test code = 12637) NEGATIVE G. VAGINALIS (test code = 72235) POSITIVE T. VAGINALIS (test code = 55192) NEGATIVE VAGINAL PATHOGENS DNA [id number] 00:00:00 Test Item Value Reference Range Interpretation Comments ANDIE SPECIES (test code = 62206) NEGATIVE G. VAGINALIS (test code = 41236) POSITIVE T. VAGINALIS (test code = 49762) NEGATIVE VAGINAL PATHOGENS DNA [id number] 00:00:00 Test Item Value Reference Range Interpretation Comments ANDIE SPECIES (test code = 01867) NEGATIVE G. VAGINALIS (test code = 27446) POSITIVE T. VAGINALIS (test code = 58150) NEGATIVE VAGINAL PATHOGENS DNA [id number] 00:00:00 Test Item Value Reference Range Interpretation Comments ANDIE SPECIES (test code = 24349) NEGATIVE G. VAGINALIS (test code = 81701) POSITIVE T. VAGINALIS (test code = 30331) NEGATIVE VAGINAL PATHOGENS DNA [id number] 00:00:00 Test Item Value Reference Range Interpretation Comments ANDIE SPECIES (test code = 53452) NEGATIVE G. VAGINALIS (test code = 22022) POSITIVE T. VAGINALIS (test code = 83264) NEGATIVE VAGINAL PATHOGENS DNA [id number] 00:00:00 Test Item Value Reference Range Interpretation Comments ANDIE SPECIES (test code = 12792) NEGATIVE G. VAGINALIS (test code = 93504) POSITIVE T. VAGINALIS (test code = 18529) NEGATIVE VAGINAL PATHOGENS DNA [id number] 00:00:00 Test Item Value Reference Range Interpretation Comments ANDIE SPECIES (test code = 97110) NEGATIVE G. VAGINALIS (test code = 94905) POSITIVE T. VAGINALIS (test code = 21124) NEGATIVE VAGINAL PATHOGENS DNA [id number] 00:00:00 Test Item Value Reference Range Interpretation Comments ANDIE SPECIES (test code = 23877) NEGATIVE G. VAGINALIS (test code = 11734) POSITIVE T. VAGINALIS (test code = 34911) NEGATIVE VAGINAL PATHOGENS DNA [id number] 00:00:00 Test Item Value Reference Range Interpretation Comments ANDIE SPECIES (test code = 84608) NEGATIVE G. VAGINALIS (test code = 68316) POSITIVE T. VAGINALIS (test code = 62616) NEGATIVE VAGINAL PATHOGENS DNA [id number] 00:00:00 Test Item Value Reference Range Interpretation Comments ANDIE SPECIES (test code = 93415) NEGATIVE G. VAGINALIS (test code = 53296) POSITIVE T. VAGINALIS (test code = 53185) NEGATIVE VAGINAL PATHOGENS DNA [id number] 00:00:00 Test Item Value Reference Range Interpretation Comments ANDIE SPECIES (test code = 29337) NEGATIVE G. VAGINALIS (test code = 01852) POSITIVE T. VAGINALIS (test code = 51551) NEGATIVE VAGINAL PATHOGENS DNA [id number] 00:00:00 Test Item Value Reference Range Interpretation Comments ANDIE SPECIES (test code = 75779) NEGATIVE G. VAGINALIS (test code = 69334) POSITIVE T. VAGINALIS (test code = 13406) NEGATIVE VAGINAL PATHOGENS DNA [id number] 00:00:00 Test Item Value Reference Range Interpretation Comments ANDIE SPECIES (test code = 05866) NEGATIVE G. VAGINALIS (test code = 85994) POSITIVE T. VAGINALIS (test code = 69402) NEGATIVE VAGINAL PATHOGENS DNA [id number] 00:00:00 Test Item Value Reference Range Interpretation Comments ANDIE SPECIES (test code = 58653) NEGATIVE G. VAGINALIS (test code = 92789) POSITIVE T. VAGINALIS (test code = 31266) NEGATIVE VAGINAL PATHOGENS DNA [id number] 00:00:00 Test Item Value Reference Range Interpretation Comments ANDIE SPECIES (test code = 85113) NEGATIVE G. VAGINALIS (test code = 38736) POSITIVE T. VAGINALIS (test code = 37622) NEGATIVE BLOOD GROUP (ABO) AND RH [id number] 00:00:00 Test Item Value Reference Range Interpretation Comments BLOOD TYPE AND RH (test code = A POSITIVE 3901) BLOOD GROUP (ABO) AND RH [id number] 00:00:00 Test Item Value Reference Range Interpretation Comments BLOOD TYPE AND RH (test code = A POSITIVE 3901) BLOOD GROUP (ABO) AND RH [id number] 00:00:00 Test Item Value Reference Range Interpretation Comments BLOOD TYPE AND RH (test code = A POSITIVE 3901) HEMOGLOBIN [id number] 00:00:00 Test Item Value Reference Range Interpretation Comments HEMOGLOBIN A1c (test code = 98739) 11.8 % HEMOGLOBIN [id number] 00:00:00 Test Item Value Reference Range Interpretation Comments HEMOGLOBIN A1c (test code = 36062) 11.8 % HEMOGLOBIN [id number] 00:00:00 Test Item Value Reference Range Interpretation Comments HEMOGLOBIN A1c (test code = 34111) 11.8 % BLOOD GROUP (ABO) AND RH [id number] 00:00:00 Test Item Value Reference Range Interpretation Comments BLOOD TYPE AND RH (test code = A POSITIVE 3901) BLOOD GROUP (ABO) AND RH [id number] 00:00:00 Test Item Value Reference Range Interpretation Comments BLOOD TYPE AND RH (test code = A POSITIVE 3901) BLOOD GROUP (ABO) AND RH [id number] 00:00:00 Test Item Value Reference Range Interpretation Comments BLOOD TYPE AND RH (test code = A POSITIVE 3901) HEMOGLOBIN [id number] 00:00:00 Test Item Value Reference Range Interpretation Comments HEMOGLOBIN A1c (test code = 70099) 11.8 % HEMOGLOBIN [id number] 00:00:00 Test Item Value Reference Range Interpretation Comments HEMOGLOBIN A1c (test code = 35808) 11.8 % HEMOGLOBIN [id number] 00:00:00 Test Item Value Reference Range Interpretation Comments HEMOGLOBIN A1c (test code = 89893) 11.8 % BLOOD GROUP (ABO) AND RH [id number] 00:00:00 Test Item Value Reference Range Interpretation Comments BLOOD TYPE AND RH (test code = A POSITIVE 3901) BLOOD GROUP (ABO) AND RH [id number] 00:00:00 Test Item Value Reference Range Interpretation Comments BLOOD TYPE AND RH (test code = A POSITIVE 3901) BLOOD GROUP (ABO) AND RH [id number] 00:00:00 Test Item Value Reference Range Interpretation Comments BLOOD TYPE AND RH (test code = A POSITIVE 3901) HEMOGLOBIN [id number] 00:00:00 Test Item Value Reference Range Interpretation Comments HEMOGLOBIN A1c (test code = 07032) 11.8 % HEMOGLOBIN [id number] 00:00:00 Test Item Value Reference Range Interpretation Comments HEMOGLOBIN A1c (test code = 13970) 11.8 % HEMOGLOBIN [id number] 00:00:00 Test Item Value Reference Range Interpretation Comments HEMOGLOBIN A1c (test code = 04147) 11.8 % BLOOD GROUP (ABO) AND RH [id number] 00:00:00 Test Item Value Reference Range Interpretation Comments BLOOD TYPE AND RH (test code = A POSITIVE 3901) BLOOD GROUP (ABO) AND RH [id number] 00:00:00 Test Item Value Reference Range Interpretation Comments BLOOD TYPE AND RH (test code = A POSITIVE 3901) BLOOD GROUP (ABO) AND RH [id number] 00:00:00 Test Item Value Reference Range Interpretation Comments BLOOD TYPE AND RH (test code = A POSITIVE 3901) HEMOGLOBIN [id number] 00:00:00 Test Item Value Reference Range Interpretation Comments HEMOGLOBIN A1c (test code = 26180) 11.8 % HEMOGLOBIN [id number] 00:00:00 Test Item Value Reference Range Interpretation Comments HEMOGLOBIN A1c (test code = 57030) 11.8 % HEMOGLOBIN [id number] 00:00:00 Test Item Value Reference Range Interpretation Comments HEMOGLOBIN A1c (test code = 99313) 11.8 % BLOOD GROUP (ABO) AND RH [id number] 00:00:00 Test Item Value Reference Range Interpretation Comments BLOOD TYPE AND RH (test code = A POSITIVE 3901) BLOOD GROUP (ABO) AND RH [id number] 00:00:00 Test Item Value Reference Range Interpretation Comments BLOOD TYPE AND RH (test code = A POSITIVE 3901) BLOOD GROUP (ABO) AND RH [id number] 00:00:00 Test Item Value Reference Range Interpretation Comments BLOOD TYPE AND RH (test code = A POSITIVE 3901) HEMOGLOBIN [id number] 00:00:00 Test Item Value Reference Range Interpretation Comments HEMOGLOBIN A1c (test code = 73255) 11.8 % HEMOGLOBIN [id number] 00:00:00 Test Item Value Reference Range Interpretation Comments HEMOGLOBIN A1c (test code = 20945) 11.8 % HEMOGLOBIN [id number] 00:00:00 Test Item Value Reference Range Interpretation Comments HEMOGLOBIN A1c (test code = 39729) 11.8 % BLOOD GROUP (ABO) AND RH [id number] 00:00:00 Test Item Value Reference Range Interpretation Comments BLOOD TYPE AND RH (test code = A POSITIVE 3901) BLOOD GROUP (ABO) AND RH [id number] 00:00:00 Test Item Value Reference Range Interpretation Comments BLOOD TYPE AND RH (test code = A POSITIVE 3901) BLOOD GROUP (ABO) AND RH [id number] 00:00:00 Test Item Value Reference Range Interpretation Comments BLOOD TYPE AND RH (test code = A POSITIVE 3901) HEMOGLOBIN [id number] 00:00:00 Test Item Value Reference Range Interpretation Comments HEMOGLOBIN A1c (test code = 10744) 11.8 % HEMOGLOBIN [id number] 00:00:00 Test Item Value Reference Range Interpretation Comments HEMOGLOBIN A1c (test code = 37510) 11.8 % HEMOGLOBIN [id number] 00:00:00 Test Item Value Reference Range Interpretation Comments HEMOGLOBIN A1c (test code = 43777) 11.8 % BLOOD GROUP (ABO) AND RH [id number] 00:00:00 Test Item Value Reference Range Interpretation Comments BLOOD TYPE AND RH (test code = A POSITIVE 3901) BLOOD GROUP (ABO) AND RH [id number] 00:00:00 Test Item Value Reference Range Interpretation Comments BLOOD TYPE AND RH (test code = A POSITIVE 3901) BLOOD GROUP (ABO) AND RH [id number] 00:00:00 Test Item Value Reference Range Interpretation Comments BLOOD TYPE AND RH (test code = A POSITIVE 3901) HEMOGLOBIN [id number] 00:00:00 Test Item Value Reference Range Interpretation Comments HEMOGLOBIN A1c (test code = 35690) 11.8 % BLOOD GROUP (ABO) AND RH [id number] 00:00:00 Test Item Value Reference Range Interpretation Comments BLOOD TYPE AND RH (test code = A POSITIVE 3901) HEMOGLOBIN [id number] 00:00:00 Test Item Value Reference Range Interpretation Comments HEMOGLOBIN A1c (test code = 42323) 11.8 % HEMOGLOBIN [id number] 00:00:00 Test Item Value Reference Range Interpretation Comments HEMOGLOBIN A1c (test code = 88837) 11.8 % BLOOD GROUP (ABO) AND RH [id number] 00:00:00 Test Item Value Reference Range Interpretation Comments BLOOD TYPE AND RH (test code = A POSITIVE 3901) HEMOGLOBIN [id number] 00:00:00 Test Item Value Reference Range Interpretation Comments HEMOGLOBIN A1c (test code = 61351) 11.8 % HEMOGLOBIN [id number] 00:00:00 Test Item Value Reference Range Interpretation Comments HEMOGLOBIN A1c (test code = 67845) 11.8 % BLOOD GROUP (ABO) AND RH [id number] 00:00:00 Test Item Value Reference Range Interpretation Comments BLOOD TYPE AND RH (test code = A POSITIVE 3901) BLOOD GROUP (ABO) AND RH [id number] 00:00:00 Test Item Value Reference Range Interpretation Comments BLOOD TYPE AND RH (test code = A POSITIVE 3901) BLOOD GROUP (ABO) AND RH [id number] 00:00:00 Test Item Value Reference Range Interpretation Comments BLOOD TYPE AND RH (test code = A POSITIVE 3901) HEMOGLOBIN [id number] 00:00:00 Test Item Value Reference Range Interpretation Comments HEMOGLOBIN A1c (test code = 07176) 11.8 % HEMOGLOBIN [id number] 00:00:00 Test Item Value Reference Range Interpretation Comments HEMOGLOBIN A1c (test code = 12569) 11.8 % HEMOGLOBIN [id number] 00:00:00 Test Item Value Reference Range Interpretation Comments HEMOGLOBIN A1c (test code = 71302) 11.8 % BLOOD GROUP (ABO) AND RH [id number] 00:00:00 Test Item Value Reference Range Interpretation Comments BLOOD TYPE AND RH (test code = A POSITIVE 3901) BLOOD GROUP (ABO) AND RH [id number] 00:00:00 Test Item Value Reference Range Interpretation Comments BLOOD TYPE AND RH (test code = A POSITIVE 3901) BLOOD GROUP (ABO) AND RH [id number] 00:00:00 Test Item Value Reference Range Interpretation Comments BLOOD TYPE AND RH (test code = A POSITIVE 3901) HEMOGLOBIN [id number] 00:00:00 Test Item Value Reference Range Interpretation Comments HEMOGLOBIN A1c (test code = 89804) 11.8 % HEMOGLOBIN [id number] 00:00:00 Test Item Value Reference Range Interpretation Comments HEMOGLOBIN A1c (test code = 43663) 11.8 % HEMOGLOBIN [id number] 00:00:00 Test Item Value Reference Range Interpretation Comments HEMOGLOBIN A1c (test code = 75398) 11.8 % BLOOD GROUP (ABO) AND RH [id number] 00:00:00 Test Item Value Reference Range Interpretation Comments BLOOD TYPE AND RH (test code = A POSITIVE 3901) BLOOD GROUP (ABO) AND RH [id number] 00:00:00 Test Item Value Reference Range Interpretation Comments BLOOD TYPE AND RH (test code = A POSITIVE 3901) BLOOD GROUP (ABO) AND RH [id number] 00:00:00 Test Item Value Reference Range Interpretation Comments BLOOD TYPE AND RH (test code = A POSITIVE 3901) HEMOGLOBIN [id number] 00:00:00 Test Item Value Reference Range Interpretation Comments HEMOGLOBIN A1c (test code = 50598) 11.8 % HEMOGLOBIN [id number] 00:00:00 Test Item Value Reference Range Interpretation Comments HEMOGLOBIN A1c (test code = 44827) 11.8 % HEMOGLOBIN [id number] 00:00:00 Test Item Value Reference Range Interpretation Comments HEMOGLOBIN A1c (test code = 75836) 11.8 % COMPREHENSIVE METABOLIC [id number] 00:00:00 Test Item Value Reference Range Interpretation Comments GLUCOSE (test code = 2217) 277 MG/DL BUN (test code = 2208) 26 MG/DL CREATININE (test code = 2214) 1.04 MG/DL eGFR AMER. (test code 77 ML/MIN/1.73 = 72162) eGFR NON- AMER. (test 66 ML/MIN/1.73 code = 10638) CALC BUN/CREAT (test code = 25 RATIO [...] code = 2219) 51 U/L COMPREHENSIVE METABOLIC [id number] 00:00:00 Test Item Value Reference Range Interpretation Comments GLUCOSE (test code = 2217) 277 MG/DL BUN (test code = 2208) 26 MG/DL CREATININE (test code = 2214) 1.04 MG/DL eGFR AMER. (test code 77 ML/MIN/1.73 = 08088) eGFR NON- AMER. (test 66 ML/MIN/1.73 code = 17803) CALC BUN/CREAT (test code = 25 RATIO [...] (test code = 2219) 51 U/L CULTURE, [id number] 00:00:00 Test Item Value Reference Range Interpretation Comments CULTURE, URINE (test SPECIMEN NUMBER: code = 54940) [id number] CULTURE, [id number] 00:00:00 Test Item Value Reference Range Interpretation Comments CULTURE, URINE (test SPECIMEN NUMBER: code = 40726) [id number] COMPREHENSIVE METABOLIC [id number] 00:00:00 Test Item Value Reference Range Interpretation Comments GLUCOSE (test code = 2217) 277 MG/DL BUN (test code = 2208) 26 MG/DL CREATININE (test code = 2214) 1.04 MG/DL eGFR AMER. (test code 77 ML/MIN/1.73 = 83102) eGFR NON- AMER. (test 66 ML/MIN/1.73 code = 95299) CALC BUN/CREAT (test code = 25 RATIO [...] code = 2219) 51 U/L COMPREHENSIVE METABOLIC [id number] 00:00:00 Test Item Value Reference Range Interpretation Comments GLUCOSE (test code = 2217) 277 MG/DL BUN (test code = 2208) 26 MG/DL CREATININE (test code = 2214) 1.04 MG/DL eGFR AMER. (test code 77 ML/MIN/1.73 = 45927) eGFR NON- AMER. (test 66 ML/MIN/1.73 code = 78409) CALC BUN/CREAT (test code = 25 RATIO [...] (test code = 2219) 51 U/L CULTURE, [id number] 00:00:00 Test Item Value Reference Range Interpretation Comments CULTURE, URINE (test SPECIMEN NUMBER: code = 16212) [id number] CULTURE, [id number] 00:00:00 Test Item Value Reference Range Interpretation Comments CULTURE, URINE (test SPECIMEN NUMBER: code = 47129) [id number] COMPREHENSIVE METABOLIC [id number] 00:00:00 Test Item Value Reference Range Interpretation Comments GLUCOSE (test code = 2217) 277 MG/DL BUN (test code = 2208) 26 MG/DL CREATININE (test code = 2214) 1.04 MG/DL eGFR AMER. (test code 77 ML/MIN/1.73 = 61888) eGFR NON- AMER. (test 66 ML/MIN/1.73 code = 52572) CALC BUN/CREAT (test code = 25 RATIO [...] code = 2219) 51 U/L COMPREHENSIVE METABOLIC [id number] 00:00:00 Test Item Value Reference Range Interpretation Comments GLUCOSE (test code = 2217) 277 MG/DL BUN (test code = 2208) 26 MG/DL CREATININE (test code = 2214) 1.04 MG/DL eGFR AMER. (test code 77 ML/MIN/1.73 = 89123) eGFR NON- AMER. (test 66 ML/MIN/1.73 code = 41898) CALC BUN/CREAT (test code = 25 RATIO [...] (test code = 2219) 51 U/L CULTURE, [id number] 00:00:00 Test Item Value Reference Range Interpretation Comments CULTURE, URINE (test SPECIMEN NUMBER: code = 67550) [id number] CULTURE, [id number] 00:00:00 Test Item Value Reference Range Interpretation Comments CULTURE, URINE (test SPECIMEN NUMBER: code = 22741) [id number] COMPREHENSIVE METABOLIC [id number] 00:00:00 Test Item Value Reference Range Interpretation Comments GLUCOSE (test code = 2217) 277 MG/DL BUN (test code = 2208) 26 MG/DL CREATININE (test code = 2214) 1.04 MG/DL eGFR AMER. (test code 77 ML/MIN/1.73 = 38554) eGFR NON- AMER. (test 66 ML/MIN/1.73 code = 89823) CALC BUN/CREAT (test code = 25 RATIO [...] code = 2219) 51 U/L COMPREHENSIVE METABOLIC [id number] 00:00:00 Test Item Value Reference Range Interpretation Comments GLUCOSE (test code = 2217) 277 MG/DL BUN (test code = 2208) 26 MG/DL CREATININE (test code = 2214) 1.04 MG/DL eGFR AMER. (test code 77 ML/MIN/1.73 = 23035) eGFR NON- AMER. (test 66 ML/MIN/1.73 code = 17157) CALC BUN/CREAT (test code = 25 RATIO [...] (test code = 2219) 51 U/L CULTURE, [id number] 00:00:00 Test Item Value Reference Range Interpretation Comments CULTURE, URINE (test SPECIMEN NUMBER: code = 77602) [id number] CULTURE, [id number] 00:00:00 Test Item Value Reference Range Interpretation Comments CULTURE, URINE (test SPECIMEN NUMBER: code = 31937) [id number] COMPREHENSIVE METABOLIC [id number] 00:00:00 Test Item Value Reference Range Interpretation Comments GLUCOSE (test code = 2217) 277 MG/DL BUN (test code = 2208) 26 MG/DL CREATININE (test code = 2214) 1.04 MG/DL eGFR AMER. (test code 77 ML/MIN/1.73 = 73216) eGFR NON- AMER. (test 66 ML/MIN/1.73 code = 36374) CALC BUN/CREAT (test code = 25 RATIO 223) SODIUM (test code = 2231) 137 MEQ/L [...] code = 2219) 51 U/L COMPREHENSIVE METABOLIC [id number] 00:00:00 Test Item Value Reference Range Interpretation Comments GLUCOSE (test code = 2217) 277 MG/DL BUN (test code = 2208) 26 MG/DL CREATININE (test code = 2214) 1.04 MG/DL eGFR AMER. (test code 77 ML/MIN/1.73 = 13185) eGFR NON- AMER. (test 66 ML/MIN/1.73 code = 71024) CALC BUN/CREAT (test code = 25 RATIO [...] (test code = 2219) 51 U/L CULTURE, [id number] 00:00:00 Test Item Value Reference Range Interpretation Comments CULTURE, URINE (test SPECIMEN NUMBER: code = 83619) [id number] CULTURE, [id number] 00:00:00 Test Item Value Reference Range Interpretation Comments CULTURE, URINE (test SPECIMEN NUMBER: code = 85237) [id number] COMPREHENSIVE METABOLIC [id number] 00:00:00 Test Item Value Reference Range Interpretation Comments GLUCOSE (test code = 2217) 277 MG/DL BUN (test code = 2208) 26 MG/DL CREATININE (test code = 2214) 1.04 MG/DL eGFR AMER. (test code 77 ML/MIN/1.73 = 99224) eGFR NON- AMER. (test 66 ML/MIN/1.73 code = 97008) CALC BUN/CREAT (test code = 25 RATIO [...] code = 2219) 51 U/L COMPREHENSIVE METABOLIC [id number] 00:00:00 Test Item Value Reference Range Interpretation Comments GLUCOSE (test code = 2217) 277 MG/DL BUN (test code = 2208) 26 MG/DL CREATININE (test code = 2214) 1.04 MG/DL eGFR AMER. (test code 77 ML/MIN/1.73 = 00439) eGFR NON- AMER. (test 66 ML/MIN/1.73 code = 41093) CALC BUN/CREAT (test code = 25 RATIO [...] (test code = 2219) 51 U/L CULTURE, [id number] 00:00:00 Test Item Value Reference Range Interpretation Comments CULTURE, URINE (test SPECIMEN NUMBER: code = 17740) [id number] CULTURE, [id number] 00:00:00 Test Item Value Reference Range Interpretation Comments CULTURE, URINE (test SPECIMEN NUMBER: code = 80391) [id number] COMPREHENSIVE METABOLIC [id number] 00:00:00 Test Item Value Reference Range Interpretation Comments GLUCOSE (test code = 2217) 277 MG/DL BUN (test code = 2208) 26 MG/DL CREATININE (test code = 2214) 1.04 MG/DL eGFR AMER. (test code 77 ML/MIN/1.73 = 63892) eGFR NON- AMER. (test 66 ML/MIN/1.73 code = 58080) CALC BUN/CREAT (test code = 25 RATIO [...] code = 2219) 51 U/L COMPREHENSIVE METABOLIC [id number] 00:00:00 Test Item Value Reference Range Interpretation Comments GLUCOSE (test code = 2217) 277 MG/DL BUN (test code = 2208) 26 MG/DL CREATININE (test code = 2214) 1.04 MG/DL eGFR AMER. (test code 77 ML/MIN/1.73 = 64192) eGFR NON- AMER. (test 66 ML/MIN/1.73 code = 62805) CALC BUN/CREAT (test code = 25 RATIO 223) SODIUM (test code = 2231) 137 MEQ/L [...] code = 2203) AST (test code = 221) 32 U/L ALT (test code = 2219) 51 U/L CULTURE, [id number] 00:00:00 Test Item Value Reference Range Interpretation Comments CULTURE, URINE (test SPECIMEN NUMBER: code = 66780) [id number] CULTURE, [id number] 00:00:00 Test Item Value Reference Range Interpretation Comments CULTURE, URINE (test SPECIMEN NUMBER: code = 28438) [id number] COMPREHENSIVE METABOLIC [id number] 00:00:00 Test Item Value Reference Range Interpretation Comments GLUCOSE (test code = 2217) 277 MG/DL BUN (test code = 2208) 26 MG/DL CREATININE (test code = 2214) 1.04 MG/DL eGFR AMER. (test code 77 ML/MIN/1.73 = 83685) eGFR NON- AMER. (test 66 ML/MIN/1.73 code = 59261) CALC BUN/CREAT (test code = 25 RATIO 223) SODIUM (test code = 2231) 137 MEQ/L [...] (test code = 2219) 51 U/L CULTURE, [id number] 00:00:00 Test Item Value Reference Range Interpretation Comments CULTURE, URINE (test SPECIMEN NUMBER: code = 32785) [id number] COMPREHENSIVE METABOLIC [id number] 00:00:00 Test Item Value Reference Range Interpretation Comments GLUCOSE (test code = 2217) 277 MG/DL BUN (test code = 2208) 26 MG/DL CREATININE (test code = 2214) 1.04 MG/DL eGFR AMER. (test code 77 ML/MIN/1.73 = 23144) eGFR NON- AMER. (test 66 ML/MIN/1.73 code = 14178) CALC BUN/CREAT (test code = 25 RATIO 2235) SODIUM (test code = 2231) 137 MEQ/L POTASSIUM (test code = 2228) 4.3 MEQ/L CHLORIDE (test code = 2215) 96 MEQ/L CARBON DIOXIDE (test code = 24 MEQ/L 6) CALCIUM (test code = 2209) 10.8 MG/DL [...] code = 2219) 51 U/L COMPREHENSIVE METABOLIC [id number] 00:00:00 Test Item Value Reference Range Interpretation Comments GLUCOSE (test code = 2217) 277 MG/DL BUN (test code = 2208) 26 MG/DL CREATININE (test code = 2214) 1.04 MG/DL eGFR AMER. (test code 77 ML/MIN/1.73 = 83164) eGFR NON- AMER. (test 66 ML/MIN/1.73 code = 85701) CALC BUN/CREAT (test code = 25 RATIO 223) SODIUM (test code = 2231) 137 MEQ/L [...] code = 2203) AST (test code = 221) 32 U/L ALT (test code = 2219) 51 U/L CULTURE, [id number] 00:00:00 Test Item Value Reference Range Interpretation Comments CULTURE, URINE (test SPECIMEN NUMBER: code = 13626) [id number] CULTURE, [id number] 00:00:00 Test Item Value Reference Range Interpretation Comments CULTURE, URINE (test SPECIMEN NUMBER: code = 35499) [id number] COMPREHENSIVE METABOLIC [id number] 00:00:00 Test Item Value Reference Range Interpretation Comments GLUCOSE (test code = 2217) 277 MG/DL BUN (test code = 2208) 26 MG/DL CREATININE (test code = 2214) 1.04 MG/DL eGFR AMER. (test code 77 ML/MIN/1.73 = 13548) eGFR NON- AMER. (test 66 ML/MIN/1.73 code = 61390) CALC BUN/CREAT (test code = 25 RATIO 223) SODIUM (test code = 2231) 137 MEQ/L [...] code = 2219) 51 U/L COMPREHENSIVE METABOLIC [id number] 00:00:00 Test Item Value Reference Range Interpretation Comments GLUCOSE (test code = 2217) 277 MG/DL BUN (test code = 2208) 26 MG/DL CREATININE (test code = 2214) 1.04 MG/DL eGFR AMER. (test code 77 ML/MIN/1.73 = 63068) eGFR NON- AMER. (test 66 ML/MIN/1.73 code = 90283) CALC BUN/CREAT (test code = 25 RATIO [...] (test code = 2219) 51 U/L CULTURE, [id number] 00:00:00 Test Item Value Reference Range Interpretation Comments CULTURE, URINE (test SPECIMEN NUMBER: code = 32540) [id number] CULTURE, [id number] 00:00:00 Test Item Value Reference Range Interpretation Comments CULTURE, URINE (test SPECIMEN NUMBER: code = 44405) [id number] COMPREHENSIVE METABOLIC [id number] 00:00:00 Test Item Value Reference Range Interpretation Comments GLUCOSE (test code = 2217) 277 MG/DL BUN (test code = 2208) 26 MG/DL CREATININE (test code = 2214) 1.04 MG/DL eGFR AMER. (test code 77 ML/MIN/1.73 = 18043) eGFR NON- AMER. (test 66 ML/MIN/1.73 code = 24497) CALC BUN/CREAT (test code = 25 RATIO [...] code = 2219) 51 U/L COMPREHENSIVE METABOLIC [id number] 00:00:00 Test Item Value Reference Range Interpretation Comments GLUCOSE (test code = 2217) 277 MG/DL BUN (test code = 2208) 26 MG/DL CREATININE (test code = 2214) 1.04 MG/DL eGFR AMER. (test code 77 ML/MIN/1.73 = 20677) eGFR NON- AMER. (test 66 ML/MIN/1.73 code = 11076) CALC BUN/CREAT (test code = 25 RATIO [...] (test code = 2219) 51 U/L CULTURE, [id number] 00:00:00 Test Item Value Reference Range Interpretation Comments CULTURE, URINE (test SPECIMEN NUMBER: code = 64746) [id number] CULTURE, [id number] 00:00:00 Test Item Value Reference Range Interpretation Comments CULTURE, URINE (test SPECIMEN NUMBER: code = 01882) [id number] CBC W/AUTO [id number] 00:00:00 Test Item Value Reference Range Interpretation [...] NUCLEATED RBCS (test code = 0.00 K/UL 96729) CBC W/AUTO [id number] 00:00:00 Test Item Value Reference Range Interpretation [...] NUCLEATED RBCS (test code = 0.00 K/UL 60531) CBC W/AUTO [id number] 00:00:00 Test Item Value Reference Range Interpretation [...] NUCLEATED RBCS (test code = 0.00 K/UL 52613) CBC W/AUTO [id number] 00:00:00 Test Item Value Reference Range Interpretation [...] NUCLEATED RBCS (test code = 0.00 K/UL 12659) CBC W/AUTO [id number] 00:00:00 Test Item Value Reference Range Interpretation [...] NUCLEATED RBCS (test code = 0.00 K/UL 81473) CBC W/AUTO [id number] 00:00:00 Test Item Value Reference Range Interpretation [...] NUCLEATED RBCS (test code = 0.00 K/UL 22209) CBC W/AUTO [id number] 00:00:00 Test Item Value Reference Range Interpretation [...] NUCLEATED RBCS (test code = 0.00 K/UL 87737) CBC W/AUTO [id number] 00:00:00 Test Item Value Reference Range Interpretation [...] NUCLEATED RBCS (test code = 0.00 K/UL 43685) CBC W/AUTO [id number] 00:00:00 Test Item Value Reference Range Interpretation [...] NUCLEATED RBCS (test code = 0.00 K/UL 63163) CBC W/AUTO [id number] 00:00:00 Test Item Value Reference Range Interpretation [...] NUCLEATED RBCS (test code = 0.00 K/UL 12707) CBC W/AUTO [id number] 00:00:00 Test Item Value Reference Range Interpretation [...] NUCLEATED RBCS (test code = 0.00 K/UL 68258) CBC W/AUTO [id number] 00:00:00 Test Item Value Reference Range Interpretation [...] NUCLEATED RBCS (test code = 0.00 K/UL 36797) CBC W/AUTO [id number] 00:00:00 Test Item Value Reference Range Interpretation [...] NUCLEATED RBCS (test code = 0.00 K/UL 15454) CBC W/AUTO [id number] 00:00:00 Test Item Value Reference Range Interpretation [...] NUCLEATED RBCS (test code = 0.00 K/UL 04677) CBC W/AUTO [id number] 00:00:00 Test Item Value Reference Range Interpretation [...] NUCLEATED RBCS (test code = 0.00 K/UL 79806) CBC W/AUTO [id number] 00:00:00 Test Item Value Reference Range Interpretation [...] NUCLEATED RBCS (test code = 0.00 K/UL 25884) CBC W/AUTO [id number] 00:00:00 Test Item Value Reference Range Interpretation [...] NUCLEATED RBCS (test code = 0.00 K/UL 99782) CBC W/AUTO [id number] 00:00:00 Test Item Value Reference Range Interpretation [...] NUCLEATED RBCS (test code = 0.00 K/UL 54752) CBC W/AUTO [id number] 00:00:00 Test Item Value Reference Range Interpretation [...] NUCLEATED RBCS (test code = 0.00 K/UL 81984) CBC W/AUTO [id number] 00:00:00 Test Item Value Reference Range Interpretation [...] NUCLEATED RBCS (test code = 0.00 K/UL 50752) CBC W/AUTO [id number] 00:00:00 Test Item Value Reference Range Interpretation [...] NUCLEATED RBCS (test code = 0.00 K/UL 60187) CBC W/AUTO [id number] 00:00:00 Test Item Value Reference Range Interpretation [...] NUCLEATED RBCS (test code = 0.00 K/UL 17703) CBC W/AUTO [id number] 00:00:00 Test Item Value Reference Range Interpretation [...] NUCLEATED RBCS (test code = 0.00 K/UL 54055) CBC W/AUTO [id number] 00:00:00 Test Item Value Reference Range Interpretation [...] NUCLEATED RBCS (test code = 0.00 K/UL 39334) CBC W/AUTO [id number] 00:00:00 Test Item Value Reference Range Interpretation [...] NUCLEATED RBCS (test code = 0.00 K/UL 72461) CBC W/AUTO [id number] 00:00:00 Test Item Value Reference Range Interpretation [...] NUCLEATED RBCS (test code = 0.00 K/UL 84850) CBC W/AUTO [id number] 00:00:00 Test Item Value Reference Range Interpretation [...] NUCLEATED RBCS (test code = 0.00 K/UL 52051) CBC W/AUTO [id number] 00:00:00 Test Item Value Reference Range Interpretation [...] NUCLEATED RBCS (test code = 0.00 K/UL 55015) CBC W/AUTO [id number] 00:00:00 Test Item Value Reference Range Interpretation [...] NUCLEATED RBCS (test code = 0.00 K/UL 39185) CBC W/AUTO [id number] 00:00:00 Test Item Value Reference Range Interpretation [...] NUCLEATED RBCS (test code = 0.00 K/UL 11696) CBC W/AUTO [id number] 00:00:00 Test Item Value Reference Range Interpretation [...] NUCLEATED RBCS (test code = 0.00 K/UL 93050) CBC W/AUTO [id number] 00:00:00 Test Item Value Reference Range Interpretation [...] NUCLEATED RBCS (test code = 0.00 K/UL 49743) VAGINAL PATHOGENS DNA [id number] 00:00:00 Test Item Value Reference Range Interpretation Comments ANDIE SPECIES (test code = ) NEGATIVE G. VAGINALIS (test code = ) NEGATIVE T. VAGINALIS (test code = ) NEGATIVE VAGINAL PATHOGENS DNA [id number] 00:00:00 Test Item Value Reference Range Interpretation Comments ANDIE SPECIES (test code = ) NEGATIVE G. VAGINALIS (test code = 84508) NEGATIVE T. VAGINALIS (test code = 91780) NEGATIVE VAGINAL PATHOGENS DNA [id number] 00:00:00 Test Item Value Reference Range Interpretation Comments ANDIE SPECIES (test code = 07076) NEGATIVE G. VAGINALIS (test code = 17932) NEGATIVE T. VAGINALIS (test code = 83083) NEGATIVE VAGINAL PATHOGENS DNA [id number] 00:00:00 Test Item Value Reference Range Interpretation Comments ANDIE SPECIES (test code = 76369) NEGATIVE G. VAGINALIS (test code = 37547) NEGATIVE T. VAGINALIS (test code = 06207) NEGATIVE VAGINAL PATHOGENS DNA [id number] 00:00:00 Test Item Value Reference Range Interpretation Comments ANDIE SPECIES (test code = 16712) NEGATIVE G. VAGINALIS (test code = 08319) NEGATIVE T. VAGINALIS (test code = 81979) NEGATIVE VAGINAL PATHOGENS DNA [id number] 00:00:00 Test Item Value Reference Range Interpretation Comments ANDIE SPECIES (test code = 86175) NEGATIVE G. VAGINALIS (test code = 78786) NEGATIVE T. VAGINALIS (test code = 91004) NEGATIVE VAGINAL PATHOGENS DNA [id number] 00:00:00 Test Item Value Reference Range Interpretation Comments ANDIE SPECIES (test code = 70895) NEGATIVE G. VAGINALIS (test code = 60910) NEGATIVE T. VAGINALIS (test code = 96224) NEGATIVE VAGINAL PATHOGENS DNA [id number] 00:00:00 Test Item Value Reference Range Interpretation Comments ANDIE SPECIES (test code = 75000) NEGATIVE G. VAGINALIS (test code = 57080) NEGATIVE T. VAGINALIS (test code = 11457) NEGATIVE VAGINAL PATHOGENS DNA [id number] 00:00:00 Test Item Value Reference Range Interpretation Comments ANDIE SPECIES (test code = 68021) NEGATIVE G. VAGINALIS (test code = 80833) NEGATIVE T. VAGINALIS (test code = 99006) NEGATIVE VAGINAL PATHOGENS DNA [id number] 00:00:00 Test Item Value Reference Range Interpretation Comments ANDIE SPECIES (test code = 39882) NEGATIVE G. VAGINALIS (test code = 69587) NEGATIVE T. VAGINALIS (test code = 94385) NEGATIVE VAGINAL PATHOGENS DNA [id number] 00:00:00 Test Item Value Reference Range Interpretation Comments ANDIE SPECIES (test code = 37745) NEGATIVE G. VAGINALIS (test code = 87407) NEGATIVE T. VAGINALIS (test code = 75989) NEGATIVE VAGINAL PATHOGENS DNA [id number] 00:00:00 Test Item Value Reference Range Interpretation Comments ANDIE SPECIES (test code = 90842) NEGATIVE G. VAGINALIS (test code = 67131) NEGATIVE T. VAGINALIS (test code = 26713) NEGATIVE VAGINAL PATHOGENS DNA [id number] 00:00:00 Test Item Value Reference Range Interpretation Comments ANDIE SPECIES (test code = 00785) NEGATIVE G. VAGINALIS (test code = 11197) NEGATIVE T. VAGINALIS (test code = 13802) NEGATIVE VAGINAL PATHOGENS DNA [id number] 00:00:00 Test Item Value Reference Range Interpretation Comments ANDIE SPECIES (test code = 71165) NEGATIVE G. VAGINALIS (test code = 01903) NEGATIVE T. VAGINALIS (test code = 64064) NEGATIVE VAGINAL PATHOGENS DNA [id number] 00:00:00 Test Item Value Reference Range Interpretation Comments ANDIE SPECIES (test code = 23570) NEGATIVE G. VAGINALIS (test code = 27972) NEGATIVE T. VAGINALIS (test code = 22532) NEGATIVE VAGINAL PATHOGENS DNA [id number] 00:00:00 Test Item Value Reference Range Interpretation Comments ANDIE SPECIES (test code = 67374) NEGATIVE G. VAGINALIS (test code = 68523) NEGATIVE T. VAGINALIS (test code = 37088) NEGATIVE VAGINAL PATHOGENS DNA [id number] 00:00:00 Test Item Value Reference Range Interpretation Comments ANDIE SPECIES (test code = 60423) NEGATIVE G. VAGINALIS (test code = 03798) NEGATIVE T. VAGINALIS (test code = 00834) NEGATIVE VAGINAL PATHOGENS DNA [id number] 00:00:00 Test Item Value Reference Range Interpretation Comments ANDIE SPECIES (test code = 37878) NEGATIVE G. VAGINALIS (test code = 16952) NEGATIVE T. VAGINALIS (test code = 88187) NEGATIVE VAGINAL PATHOGENS DNA [id number] 00:00:00 Test Item Value Reference Range Interpretation Comments ANDIE SPECIES (test code = 16272) NEGATIVE G. VAGINALIS (test code = 72864) NEGATIVE T. VAGINALIS (test code = 36627) NEGATIVE VAGINAL PATHOGENS DNA [id number] 00:00:00 Test Item Value Reference Range Interpretation Comments ANDIE SPECIES (test code = 24116) NEGATIVE G. VAGINALIS (test code = 22386) NEGATIVE T. VAGINALIS (test code = 50864) NEGATIVE VAGINAL PATHOGENS DNA [id number] 00:00:00 Test Item Value Reference Range Interpretation Comments ANDIE SPECIES (test code = ) NEGATIVE G. VAGINALIS (test code = ) NEGATIVE T. VAGINALIS (test code = ) NEGATIVE HEMOGLOBIN [id number] 00:00:00 Test Item Value Reference Range Interpretation Comments HEMOGLOBIN A1c (test code = 06998) 11.4 % HEMOGLOBIN [id number] 00:00:00 Test Item Value Reference Range Interpretation Comments HEMOGLOBIN A1c (test code = 24391) 11.4 % HEMOGLOBIN [id number] 00:00:00 Test Item Value Reference Range Interpretation Comments HEMOGLOBIN A1c (test code = 68042) 11.4 % LIPID [id number] 00:00:00 Test Item Value Reference Range Interpretation Comments CHOLESTEROL (test code = 2210) 162 MG/DL TRIGLYCERIDES (test code = 2232) 387 MG/DL HDL CHOLESTEROL (test code = 2220) 30 MG/DL CALC LDL CHOL (test code = 2237) 80 MG/DL RISK RATIO LDL/HDL (test code = 2.67 RATIO 2238) LIPID [id number] 00:00:00 Test Item Value Reference Range Interpretation Comments CHOLESTEROL (test code = 2210) 162 MG/DL TRIGLYCERIDES (test code = 2232) 387 MG/DL HDL CHOLESTEROL (test code = 2220) 30 MG/DL CALC LDL CHOL (test code = 2237) 80 MG/DL RISK RATIO LDL/HDL (test code = 2.67 RATIO 2238) COMPREHENSIVE METABOLIC [id number] 00:00:00 Test Item Value Reference Range Interpretation Comments GLUCOSE (test code = 2217) 236 MG/DL BUN (test code = 2208) 14 MG/DL CREATININE (test code = 2214) 0.71 MG/DL eGFR AMER. (test code 122 ML/MIN/1.73 = 16707) eGFR NON- AMER. (test 105 ML/MIN/1.73 code = 30538) CALC BUN/CREAT (test code = 20 RATIO [...] code = 2219) 69 U/L COMPREHENSIVE METABOLIC [id number] 00:00:00 Test Item Value Reference Range Interpretation Comments GLUCOSE (test code = 2217) 236 MG/DL BUN (test code = 2208) 14 MG/DL CREATININE (test code = 2214) 0.71 MG/DL eGFR AMER. (test code 122 ML/MIN/1.73 = 73147) eGFR NON- AMER. (test 105 ML/MIN/1.73 code = 61570) CALC BUN/CREAT (test code = 20 RATIO [...] (test code = 2219) 69 U/L HEMOGLOBIN [id number] 00:00:00 Test Item Value Reference Range Interpretation Comments HEMOGLOBIN A1c (test code = 55743) 11.4 % HEMOGLOBIN [id number] 00:00:00 Test Item Value Reference Range Interpretation Comments HEMOGLOBIN A1c (test code = 69065) 11.4 % HEMOGLOBIN [id number] 00:00:00 Test Item Value Reference Range Interpretation Comments HEMOGLOBIN A1c (test code = 09161) 11.4 % LIPID [id number] 00:00:00 Test Item Value Reference Range Interpretation Comments CHOLESTEROL (test code = 2210) 162 MG/DL TRIGLYCERIDES (test code = 2232) 387 MG/DL HDL CHOLESTEROL (test code = 2220) 30 MG/DL CALC LDL CHOL (test code = 2237) 80 MG/DL RISK RATIO LDL/HDL (test code = 2.67 RATIO 2238) LIPID [id number] 00:00:00 Test Item Value Reference Range Interpretation Comments CHOLESTEROL (test code = 2210) 162 MG/DL TRIGLYCERIDES (test code = 2232) 387 MG/DL HDL CHOLESTEROL (test code = 2220) 30 MG/DL CALC LDL CHOL (test code = 2237) 80 MG/DL RISK RATIO LDL/HDL (test code = 2.67 RATIO 2238) COMPREHENSIVE METABOLIC [id number] 00:00:00 Test Item Value Reference Range Interpretation Comments GLUCOSE (test code = 2217) 236 MG/DL BUN (test code = 2208) 14 MG/DL CREATININE (test code = 2214) 0.71 MG/DL eGFR AMER. (test code 122 ML/MIN/1.73 = 47467) eGFR NON- AMER. (test 105 ML/MIN/1.73 code = 00871) CALC BUN/CREAT (test code = 20 RATIO [...] code = 2219) 69 U/L COMPREHENSIVE METABOLIC [id number] 00:00:00 Test Item Value Reference Range Interpretation Comments GLUCOSE (test code = 2217) 236 MG/DL BUN (test code = 2208) 14 MG/DL CREATININE (test code = 2214) 0.71 MG/DL eGFR AMER. (test code 122 ML/MIN/1.73 = 58061) eGFR NON- AMER. (test 105 ML/MIN/1.73 code = 00837) CALC BUN/CREAT (test code = 20 RATIO [...] (test code = 2219) 69 U/L HEMOGLOBIN [id number] 00:00:00 Test Item Value Reference Range Interpretation Comments HEMOGLOBIN A1c (test code = 04672) 11.4 % HEMOGLOBIN [id number] 00:00:00 Test Item Value Reference Range Interpretation Comments HEMOGLOBIN A1c (test code = 05152) 11.4 % HEMOGLOBIN [id number] 00:00:00 Test Item Value Reference Range Interpretation Comments HEMOGLOBIN A1c (test code = 05082) 11.4 % LIPID [id number] 00:00:00 Test Item Value Reference Range Interpretation Comments CHOLESTEROL (test code = 2210) 162 MG/DL TRIGLYCERIDES (test code = 2232) 387 MG/DL HDL CHOLESTEROL (test code = 2220) 30 MG/DL CALC LDL CHOL (test code = 2237) 80 MG/DL RISK RATIO LDL/HDL (test code = 2.67 RATIO 2238) LIPID [id number] 00:00:00 Test Item Value Reference Range Interpretation Comments CHOLESTEROL (test code = 2210) 162 MG/DL TRIGLYCERIDES (test code = 2232) 387 MG/DL HDL CHOLESTEROL (test code = 2220) 30 MG/DL CALC LDL CHOL (test code = 2237) 80 MG/DL RISK RATIO LDL/HDL (test code = 2.67 RATIO 2238) COMPREHENSIVE METABOLIC [id number] 00:00:00 Test Item Value Reference Range Interpretation Comments GLUCOSE (test code = 2217) 236 MG/DL BUN (test code = 2208) 14 MG/DL CREATININE (test code = 2214) 0.71 MG/DL eGFR AMER. (test code 122 ML/MIN/1.73 = 06177) eGFR NON- AMER. (test 105 ML/MIN/1.73 code = 84524) CALC BUN/CREAT (test code = 20 RATIO [...] code = 2219) 69 U/L COMPREHENSIVE METABOLIC [id number] 00:00:00 Test Item Value Reference Range Interpretation Comments GLUCOSE (test code = 2217) 236 MG/DL BUN (test code = 2208) 14 MG/DL CREATININE (test code = 2214) 0.71 MG/DL eGFR AMER. (test code 122 ML/MIN/1.73 = 33360) eGFR NON- AMER. (test 105 ML/MIN/1.73 code = 51100) CALC BUN/CREAT (test code = 20 RATIO [...] (test code = 2219) 69 U/L HEMOGLOBIN [id number] 00:00:00 Test Item Value Reference Range Interpretation Comments HEMOGLOBIN A1c (test code = 62891) 11.4 % HEMOGLOBIN [id number] 00:00:00 Test Item Value Reference Range Interpretation Comments HEMOGLOBIN A1c (test code = 09783) 11.4 % HEMOGLOBIN [id number] 00:00:00 Test Item Value Reference Range Interpretation Comments HEMOGLOBIN A1c (test code = 80992) 11.4 % LIPID [id number] 00:00:00 Test Item Value Reference Range Interpretation Comments CHOLESTEROL (test code = 2210) 162 MG/DL TRIGLYCERIDES (test code = 2232) 387 MG/DL HDL CHOLESTEROL (test code = 2220) 30 MG/DL CALC LDL CHOL (test code = 2237) 80 MG/DL RISK RATIO LDL/HDL (test code = 2.67 RATIO 2238) LIPID [id number] 00:00:00 Test Item Value Reference Range Interpretation Comments CHOLESTEROL (test code = 2210) 162 MG/DL TRIGLYCERIDES (test code = 2232) 387 MG/DL HDL CHOLESTEROL (test code = 2220) 30 MG/DL CALC LDL CHOL (test code = 2237) 80 MG/DL RISK RATIO LDL/HDL (test code = 2.67 RATIO 2238) COMPREHENSIVE METABOLIC [id number] 00:00:00 Test Item Value Reference Range Interpretation Comments GLUCOSE (test code = 2217) 236 MG/DL BUN (test code = 2208) 14 MG/DL CREATININE (test code = 2214) 0.71 MG/DL eGFR AMER. (test code 122 ML/MIN/1.73 = 10809) eGFR NON- AMER. (test 105 ML/MIN/1.73 code = 14364) CALC BUN/CREAT (test code = 20 RATIO [...] code = 2219) 69 U/L COMPREHENSIVE METABOLIC [id number] 00:00:00 Test Item Value Reference Range Interpretation Comments GLUCOSE (test code = 2217) 236 MG/DL BUN (test code = 2208) 14 MG/DL CREATININE (test code = 2214) 0.71 MG/DL eGFR AMER. (test code 122 ML/MIN/1.73 = 59179) eGFR NON- AMER. (test 105 ML/MIN/1.73 code = 77517) CALC BUN/CREAT (test code = 20 RATIO [...] (test code = 2219) 69 U/L HEMOGLOBIN [id number] 00:00:00 Test Item Value Reference Range Interpretation Comments HEMOGLOBIN A1c (test code = 65003) 11.4 % HEMOGLOBIN [id number] 00:00:00 Test Item Value Reference Range Interpretation Comments HEMOGLOBIN A1c (test code = 90081) 11.4 % HEMOGLOBIN [id number] 00:00:00 Test Item Value Reference Range Interpretation Comments HEMOGLOBIN A1c (test code = 24468) 11.4 % LIPID [id number] 00:00:00 Test Item Value Reference Range Interpretation Comments CHOLESTEROL (test code = 2210) 162 MG/DL TRIGLYCERIDES (test code = 2232) 387 MG/DL HDL CHOLESTEROL (test code = 2220) 30 MG/DL CALC LDL CHOL (test code = 2237) 80 MG/DL RISK RATIO LDL/HDL (test code = 2.67 RATIO 2238) LIPID [id number] 00:00:00 Test Item Value Reference Range Interpretation Comments CHOLESTEROL (test code = 2210) 162 MG/DL TRIGLYCERIDES (test code = 2232) 387 MG/DL HDL CHOLESTEROL (test code = 2220) 30 MG/DL CALC LDL CHOL (test code = 2237) 80 MG/DL RISK RATIO LDL/HDL (test code = 2.67 RATIO 2238) COMPREHENSIVE METABOLIC [id number] 00:00:00 Test Item Value Reference Range Interpretation Comments GLUCOSE (test code = 2217) 236 MG/DL BUN (test code = 2208) 14 MG/DL CREATININE (test code = 2214) 0.71 MG/DL eGFR AMER. (test code 122 ML/MIN/1.73 = 96811) eGFR NON- AMER. (test 105 ML/MIN/1.73 code = 39434) CALC BUN/CREAT (test code = 20 RATIO [...] code = 2219) 69 U/L COMPREHENSIVE METABOLIC [id number] 00:00:00 Test Item Value Reference Range Interpretation Comments GLUCOSE (test code = 2217) 236 MG/DL BUN (test code = 2208) 14 MG/DL CREATININE (test code = 2214) 0.71 MG/DL eGFR AMER. (test code 122 ML/MIN/1.73 = 71936) eGFR NON- AMER. (test 105 ML/MIN/1.73 code = 88459) CALC BUN/CREAT (test code = 20 RATIO [...] (test code = 2219) 69 U/L HEMOGLOBIN [id number] 00:00:00 Test Item Value Reference Range Interpretation Comments HEMOGLOBIN A1c (test code = 44448) 11.4 % HEMOGLOBIN [id number] 00:00:00 Test Item Value Reference Range Interpretation Comments HEMOGLOBIN A1c (test code = 96416) 11.4 % HEMOGLOBIN [id number] 00:00:00 Test Item Value Reference Range Interpretation Comments HEMOGLOBIN A1c (test code = 75483) 11.4 % LIPID [id number] 00:00:00 Test Item Value Reference Range Interpretation Comments CHOLESTEROL (test code = 2210) 162 MG/DL TRIGLYCERIDES (test code = 2232) 387 MG/DL HDL CHOLESTEROL (test code = 2220) 30 MG/DL CALC LDL CHOL (test code = 2237) 80 MG/DL RISK RATIO LDL/HDL (test code = 2.67 RATIO 2238) LIPID [id number] 00:00:00 Test Item Value Reference Range Interpretation Comments CHOLESTEROL (test code = 2210) 162 MG/DL TRIGLYCERIDES (test code = 2232) 387 MG/DL HDL CHOLESTEROL (test code = 2220) 30 MG/DL CALC LDL CHOL (test code = 2237) 80 MG/DL RISK RATIO LDL/HDL (test code = 2.67 RATIO 2238) COMPREHENSIVE METABOLIC [id number] 00:00:00 Test Item Value Reference Range Interpretation Comments GLUCOSE (test code = 2217) 236 MG/DL BUN (test code = 2208) 14 MG/DL CREATININE (test code = 2214) 0.71 MG/DL eGFR AMER. (test code 122 ML/MIN/1.73 = 40040) eGFR NON- AMER. (test 105 ML/MIN/1.73 code = 93891) CALC BUN/CREAT (test code = 20 RATIO [...] code = 2219) 69 U/L COMPREHENSIVE METABOLIC [id number] 00:00:00 Test Item Value Reference Range Interpretation Comments GLUCOSE (test code = 2217) 236 MG/DL BUN (test code = 2208) 14 MG/DL CREATININE (test code = 2214) 0.71 MG/DL eGFR AMER. (test code 122 ML/MIN/1.73 = 92930) eGFR NON- AMER. (test 105 ML/MIN/1.73 code = 47865) CALC BUN/CREAT (test code = 20 RATIO [...] (test code = 2219) 69 U/L HEMOGLOBIN [id number] 00:00:00 Test Item Value Reference Range Interpretation Comments HEMOGLOBIN A1c (test code = 49604) 11.4 % HEMOGLOBIN [id number] 00:00:00 Test Item Value Reference Range Interpretation Comments HEMOGLOBIN A1c (test code = 16033) 11.4 % HEMOGLOBIN [id number] 00:00:00 Test Item Value Reference Range Interpretation Comments HEMOGLOBIN A1c (test code = 56974) 11.4 % LIPID [id number] 00:00:00 Test Item Value Reference Range Interpretation Comments CHOLESTEROL (test code = 2210) 162 MG/DL TRIGLYCERIDES (test code = 2232) 387 MG/DL HDL CHOLESTEROL (test code = 2220) 30 MG/DL CALC LDL CHOL (test code = 2237) 80 MG/DL RISK RATIO LDL/HDL (test code = 2.67 RATIO 2238) LIPID [id number] 00:00:00 Test Item Value Reference Range Interpretation Comments CHOLESTEROL (test code = 2210) 162 MG/DL TRIGLYCERIDES (test code = 2232) 387 MG/DL HDL CHOLESTEROL (test code = 2220) 30 MG/DL CALC LDL CHOL (test code = 2237) 80 MG/DL RISK RATIO LDL/HDL (test code = 2.67 RATIO 2238) HEMOGLOBIN [id number] 00:00:00 Test Item Value Reference Range Interpretation Comments HEMOGLOBIN A1c (test code = 02604) 11.4 % COMPREHENSIVE METABOLIC [id number] 00:00:00 Test Item Value Reference Range Interpretation Comments GLUCOSE (test code = 2217) 236 MG/DL BUN (test code = 2208) 14 MG/DL CREATININE (test code = 2214) 0.71 MG/DL eGFR AMER. (test code 122 ML/MIN/1.73 = 72381) eGFR NON- AMER. (test 105 ML/MIN/1.73 code = 51053) CALC BUN/CREAT (test code = 20 RATIO [...] code = 2219) 69 U/L COMPREHENSIVE METABOLIC [id number] 00:00:00 Test Item Value Reference Range Interpretation Comments GLUCOSE (test code = 2217) 236 MG/DL BUN (test code = 2208) 14 MG/DL CREATININE (test code = 2214) 0.71 MG/DL eGFR AMER. (test code 122 ML/MIN/1.73 = 69400) eGFR NON- AMER. (test 105 ML/MIN/1.73 code = 61007) CALC BUN/CREAT (test code = 20 RATIO [...] (test code = 2219) 69 U/L HEMOGLOBIN [id number] 00:00:00 Test Item Value Reference Range Interpretation Comments HEMOGLOBIN A1c (test code = 15618) 11.4 % LIPID [id number] 00:00:00 Test Item Value Reference Range Interpretation Comments CHOLESTEROL (test code = 2210) 162 MG/DL TRIGLYCERIDES (test code = 2232) 387 MG/DL HDL CHOLESTEROL (test code = 2220) 30 MG/DL CALC LDL CHOL (test code = 2237) 80 MG/DL RISK RATIO LDL/HDL (test code = 2.67 RATIO 2238) COMPREHENSIVE METABOLIC [id number] 00:00:00 Test Item Value Reference Range Interpretation Comments GLUCOSE (test code = 2217) 236 MG/DL BUN (test code = 2208) 14 MG/DL CREATININE (test code = 2214) 0.71 MG/DL eGFR AMER. (test code 122 ML/MIN/1.73 = 22740) eGFR NON- AMER. (test 105 ML/MIN/1.73 code = 12524) CALC BUN/CREAT (test code = 20 RATIO [...] (test code = 2219) 69 U/L HEMOGLOBIN [id number] 00:00:00 Test Item Value Reference Range Interpretation Comments HEMOGLOBIN A1c (test code = 97603) 11.4 % HEMOGLOBIN [id number] 00:00:00 Test Item Value Reference Range Interpretation Comments HEMOGLOBIN A1c (test code = 48804) 11.4 % HEMOGLOBIN [id number] 00:00:00 Test Item Value Reference Range Interpretation Comments HEMOGLOBIN A1c (test code = 07406) 11.4 % LIPID [id number] 00:00:00 Test Item Value Reference Range Interpretation Comments CHOLESTEROL (test code = 2210) 162 MG/DL TRIGLYCERIDES (test code = 2232) 387 MG/DL HDL CHOLESTEROL (test code = 2220) 30 MG/DL CALC LDL CHOL (test code = 2237) 80 MG/DL RISK RATIO LDL/HDL (test code = 2.67 RATIO 2238) LIPID [id number] 00:00:00 Test Item Value Reference Range Interpretation Comments CHOLESTEROL (test code = 2210) 162 MG/DL TRIGLYCERIDES (test code = 2232) 387 MG/DL HDL CHOLESTEROL (test code = 2220) 30 MG/DL CALC LDL CHOL (test code = 2237) 80 MG/DL RISK RATIO LDL/HDL (test code = 2.67 RATIO 2238) COMPREHENSIVE METABOLIC [id number] 00:00:00 Test Item Value Reference Range Interpretation Comments GLUCOSE (test code = 2217) 236 MG/DL BUN (test code = 2208) 14 MG/DL CREATININE (test code = 2214) 0.71 MG/DL eGFR AMER. (test code 122 ML/MIN/1.73 = 18369) eGFR NON- AMER. (test 105 ML/MIN/1.73 code = 80435) CALC BUN/CREAT (test code = 20 RATIO [...] code = 2219) 69 U/L COMPREHENSIVE METABOLIC [id number] 00:00:00 Test Item Value Reference Range Interpretation Comments GLUCOSE (test code = 2217) 236 MG/DL BUN (test code = 2208) 14 MG/DL CREATININE (test code = 2214) 0.71 MG/DL eGFR AMER. (test code 122 ML/MIN/1.73 = 50429) eGFR NON- AMER. (test 105 ML/MIN/1.73 code = 21052) CALC BUN/CREAT (test code = 20 RATIO [...] (test code = 2219) 69 U/L HEMOGLOBIN [id number] 00:00:00 Test Item Value Reference Range Interpretation Comments HEMOGLOBIN A1c (test code = 80263) 11.4 % HEMOGLOBIN [id number] 00:00:00 Test Item Value Reference Range Interpretation Comments HEMOGLOBIN A1c (test code = 42908) 11.4 % HEMOGLOBIN [id number] 00:00:00 Test Item Value Reference Range Interpretation Comments HEMOGLOBIN A1c (test code = 44061) 11.4 % LIPID [id number] 00:00:00 Test Item Value Reference Range Interpretation Comments CHOLESTEROL (test code = 2210) 162 MG/DL TRIGLYCERIDES (test code = 2232) 387 MG/DL HDL CHOLESTEROL (test code = 2220) 30 MG/DL CALC LDL CHOL (test code = 2237) 80 MG/DL RISK RATIO LDL/HDL (test code = 2.67 RATIO 2238) LIPID [id number] 00:00:00 Test Item Value Reference Range Interpretation Comments CHOLESTEROL (test code = 2210) 162 MG/DL TRIGLYCERIDES (test code = 2232) 387 MG/DL HDL CHOLESTEROL (test code = 2220) 30 MG/DL CALC LDL CHOL (test code = 2237) 80 MG/DL RISK RATIO LDL/HDL (test code = 2.67 RATIO 2238) COMPREHENSIVE METABOLIC [id number] 00:00:00 Test Item Value Reference Range Interpretation Comments GLUCOSE (test code = 2217) 236 MG/DL BUN (test code = 2208) 14 MG/DL CREATININE (test code = 2214) 0.71 MG/DL eGFR AMER. (test code 122 ML/MIN/1.73 = 93127) eGFR NON- AMER. (test 105 ML/MIN/1.73 code = 73854) CALC BUN/CREAT (test code = 20 RATIO [...] code = 2219) 69 U/L COMPREHENSIVE METABOLIC [id number] 00:00:00 Test Item Value Reference Range Interpretation Comments GLUCOSE (test code = 2217) 236 MG/DL BUN (test code = 2208) 14 MG/DL CREATININE (test code = 2214) 0.71 MG/DL eGFR AMER. (test code 122 ML/MIN/1.73 = 61339) eGFR NON- AMER. (test 105 ML/MIN/1.73 code = 90528) CALC BUN/CREAT (test code = 20 RATIO [...] ALKALINE PHOSPHATASE (test 55 U/L code = 2203) AST (test code = 2218) 38 U/L ALT (test code = 2219) 69 U/L HEMOGLOBIN [id number] 00:00:00 Test Item Value Reference Range Interpretation Comments HEMOGLOBIN A1c (test code = 52487) 11.4 % HEMOGLOBIN [id number] 00:00:00 Test Item Value Reference Range Interpretation Comments HEMOGLOBIN A1c (test code = 10909) 11.4 % HEMOGLOBIN [id number] 00:00:00 Test Item Value Reference Range Interpretation Comments HEMOGLOBIN A1c (test code = 78123) 11.4 % LIPID [id number] 00:00:00 Test Item Value Reference Range Interpretation Comments CHOLESTEROL (test code = 2210) 162 MG/DL TRIGLYCERIDES (test code = 2232) 387 MG/DL HDL CHOLESTEROL (test code = 2220) 30 MG/DL CALC LDL CHOL (test code = 2237) 80 MG/DL RISK RATIO LDL/HDL (test code = 2.67 RATIO 2238) LIPID [id number] 00:00:00 Test Item Value Reference Range Interpretation Comments CHOLESTEROL (test code = 2210) 162 MG/DL TRIGLYCERIDES (test code = 2232) 387 MG/DL HDL CHOLESTEROL (test code = 2220) 30 MG/DL CALC LDL CHOL (test code = 2237) 80 MG/DL RISK RATIO LDL/HDL (test code = 2.67 RATIO 2238) COMPREHENSIVE METABOLIC [id number] 00:00:00 Test Item Value Reference Range Interpretation Comments GLUCOSE (test code = 2217) 236 MG/DL BUN (test code = 2208) 14 MG/DL CREATININE (test code = 2214) 0.71 MG/DL eGFR AMER. (test code 122 ML/MIN/1.73 = 86092) eGFR NON- AMER. (test 105 ML/MIN/1.73 code = 91954) CALC BUN/CREAT (test code = 20 RATIO [...] code = 2219) 69 U/L COMPREHENSIVE METABOLIC [id number] 00:00:00 Test Item Value Reference Range Interpretation Comments GLUCOSE (test code = 2217) 236 MG/DL BUN (test code = 2208) 14 MG/DL CREATININE (test code = 2214) 0.71 MG/DL eGFR AMER. (test code 122 ML/MIN/1.73 = 00048) eGFR NON- AMER. (test 105 ML/MIN/1.73 code = 96137) CALC BUN/CREAT (test code = 20 RATIO [...] U/L - CT UP EXTREM W/O CONT [id number] 08:37:00 [facility] : 1980 Sex: F Patient Name: MARGE FRANCO Unit No: [id number] EXAMS: CPT CODE: [id number] CT UP EXTREM W/O CONT [place] [address]MI SCAN LEFT WRIST WITH RECONSTRUCTION DIAGNOSIS: 1. No evidence of fracture or dislocation. The scaphoid is within normal limits. No evidence of scapholunate disassociation. No evidence of focal bonylesion. TECHNIQUE: Volumetric CT data of the left wrist was obtained without use of intravenous contrast. Images were then viewed in the axial, coronal and sagittal planes. CT radiation dose optimization is achieved for this examination by the use of a CT protocol in accordance with ACR practice standards and adherence to sleep tech's recommendations. INDICATION: LEFT WRIST SPRAIN, POSSIBLE SCAPHOID FRACTURE COMPARISON: None. COMMENT: Findings are as described above. at 0837 Reported and signed by: America Schuler MD CC: Bebeto Quiroga MDTechnologist: GARO,LINN MRI CTDI: DLP: Trnscrpt: 08/11/2020 (0837) [facility] NAME: Isaac FRANCO[address] PHYS: Bebeto Valiente MD : 1980 AGE: 40 SEX: F [place] [address] LOC: Y.RAD PHONE #: [phone] EXAM DATE: 08/08/2020 STATUS: DEP CLI FAX #: [phone] RAD #: D/C DT PAGE 1 Signed Report Patient Name: Nguyen FRANCO No: [id number] EXAMS: CPT CODE: [id number] CT UP EXTREM W/[place] [address] (Continued) Orig Print D/T: S: 08/11/2020 (0840) [facility] NAME: [facility] PHYS: Bebeto Valeinte MD : 1980 AGE: 40 SEX: F [place] [address] LOC: Y.RAD PHONE #: [phone] EXAM DATE: 08/08/2020 STATUS: DEP CLI FAX #: [phone] RAD #: D/C DT PAGE 2 Signed ReportCULTURE, [id number] 00:00:00 Test Item Value Reference Range Interpretation Comments CULTURE, URINE (test SPECIMEN NUMBER: code = 84827) [id number] CULTURE, [id number] 00:00:00 Test Item Value Reference Range Interpretation Comments CULTURE, URINE (test SPECIMEN NUMBER: code = 59731) [id number] CULTURE, [id number] 00:00:00 Test Item Value Reference Range Interpretation Comments CULTURE, URINE (test SPECIMEN NUMBER: code = 50612) [id number] CULTURE, [id number] 00:00:00 Test Item Value Reference Range Interpretation Comments CULTURE, URINE (test SPECIMEN NUMBER: code = 16137) [id number] CULTURE, [id number] 00:00:00 Test Item Value Reference Range Interpretation Comments CULTURE, URINE (test SPECIMEN NUMBER: code = 56607) [id number] CULTURE, [id number] 00:00:00 Test Item Value Reference Range Interpretation Comments CULTURE, URINE (test SPECIMEN NUMBER: code = 32927) [id number] CULTURE, [id number] 00:00:00 Test Item Value Reference Range Interpretation Comments CULTURE, URINE (test SPECIMEN NUMBER: code = 73864) [id number] CULTURE, [id number] 00:00:00 Test Item Value Reference Range Interpretation Comments CULTURE, URINE (test SPECIMEN NUMBER: code = 70771) [id number] CULTURE, [id number] 00:00:00 Test Item Value Reference Range Interpretation Comments CULTURE, URINE (test SPECIMEN NUMBER: code = 48612) [id number] CULTURE, [id number] 00:00:00 Test Item Value Reference Range Interpretation Comments CULTURE, URINE (test SPECIMEN NUMBER: code = 81225) [id number] CULTURE, [id number] 00:00:00 Test Item Value Reference Range Interpretation Comments CULTURE, URINE (test SPECIMEN NUMBER: code = 61195) [id number] CULTURE, [id number] 00:00:00 Test Item Value Reference Range Interpretation Comments CULTURE, URINE (test SPECIMEN NUMBER: code = 53969) [id number] CULTURE, [id number] 00:00:00 Test Item Value Reference Range Interpretation Comments CULTURE, URINE (test SPECIMEN NUMBER: code = 98876) [id number] CULTURE, [id number] 00:00:00 Test Item Value Reference Range Interpretation Comments CULTURE, URINE (test SPECIMEN NUMBER: code = 10667) [id number] CULTURE, [id number] 00:00:00 Test Item Value Reference Range Interpretation Comments CULTURE, URINE (test SPECIMEN NUMBER: code = 04135) [id number] CULTURE, [id number] 00:00:00 Test Item Value Reference Range Interpretation Comments CULTURE, URINE (test SPECIMEN NUMBER: code = 18593) [id number] CULTURE, [id number] 00:00:00 Test Item Value Reference Range Interpretation Comments CULTURE, URINE (test SPECIMEN NUMBER: code = 55070) [id number] CULTURE, [id number] 00:00:00 Test Item Value Reference Range Interpretation Comments CULTURE, URINE (test SPECIMEN NUMBER: code = 84067) [id number] CULTURE, [id number] 00:00:00 Test Item Value Reference Range Interpretation Comments CULTURE, URINE (test SPECIMEN NUMBER: code = 74939) [id number] CULTURE, [id number] 00:00:00 Test Item Value Reference Range Interpretation Comments CULTURE, URINE (test SPECIMEN NUMBER: code = 27968) [id number] CULTURE, [id number] 00:00:00 Test Item Value Reference Range Interpretation Comments CULTURE, URINE (test SPECIMEN NUMBER: code = 42549) [id number] VAGINAL PATHOGENS DNA [id number] 00:00:00 Test Item Value Reference Range Interpretation Comments ANDIE SPECIES (test code = ) NEGATIVE G. VAGINALIS (test code = 48964) NEGATIVE T. VAGINALIS (test code = 23054) NEGATIVE VAGINAL PATHOGENS DNA [id number] 00:00:00 Test Item Value Reference Range Interpretation Comments ANDIE SPECIES (test code = 65272) NEGATIVE G. VAGINALIS (test code = 73154) NEGATIVE T. VAGINALIS (test code = 75027) NEGATIVE VAGINAL PATHOGENS DNA [id number] 00:00:00 Test Item Value Reference Range Interpretation Comments ANDIE SPECIES (test code = 56220) NEGATIVE G. VAGINALIS (test code = 41818) NEGATIVE T. VAGINALIS (test code = 29820) NEGATIVE VAGINAL PATHOGENS DNA [id number] 00:00:00 Test Item Value Reference Range Interpretation Comments ANDIE SPECIES (test code = 25481) NEGATIVE G. VAGINALIS (test code = 36138) NEGATIVE T. VAGINALIS (test code = 07063) NEGATIVE VAGINAL PATHOGENS DNA [id number] 00:00:00 Test Item Value Reference Range Interpretation Comments ANDIE SPECIES (test code = 25040) NEGATIVE G. VAGINALIS (test code = 31492) NEGATIVE T. VAGINALIS (test code = 90866) NEGATIVE VAGINAL PATHOGENS DNA [id number] 00:00:00 Test Item Value Reference Range Interpretation Comments ANDIE SPECIES (test code = 41979) NEGATIVE G. VAGINALIS (test code = 31314) NEGATIVE T. VAGINALIS (test code = 70307) NEGATIVE VAGINAL PATHOGENS DNA [id number] 00:00:00 Test Item Value Reference Range Interpretation Comments ANDIE SPECIES (test code = 66960) NEGATIVE G. VAGINALIS (test code = 95499) NEGATIVE T. VAGINALIS (test code = 22676) NEGATIVE VAGINAL PATHOGENS DNA [id number] 00:00:00 Test Item Value Reference Range Interpretation Comments ANDIE SPECIES (test code = 04029) NEGATIVE G. VAGINALIS (test code = 39747) NEGATIVE T. VAGINALIS (test code = 16483) NEGATIVE VAGINAL PATHOGENS DNA [id number] 00:00:00 Test Item Value Reference Range Interpretation Comments ANDIE SPECIES (test code = 71546) NEGATIVE G. VAGINALIS (test code = 63215) NEGATIVE T. VAGINALIS (test code = 82887) NEGATIVE VAGINAL PATHOGENS DNA [id number] 00:00:00 Test Item Value Reference Range Interpretation Comments ANDIE SPECIES (test code = 90476) NEGATIVE G. VAGINALIS (test code = 51568) NEGATIVE T. VAGINALIS (test code = 92514) NEGATIVE VAGINAL PATHOGENS DNA [id number] 00:00:00 Test Item Value Reference Range Interpretation Comments ANDIE SPECIES (test code = 05823) NEGATIVE G. VAGINALIS (test code = 23940) NEGATIVE T. VAGINALIS (test code = 31611) NEGATIVE VAGINAL PATHOGENS DNA [id number] 00:00:00 Test Item Value Reference Range Interpretation Comments ANDIE SPECIES (test code = 33402) NEGATIVE G. VAGINALIS (test code = 06424) NEGATIVE T. VAGINALIS (test code = 15994) NEGATIVE VAGINAL PATHOGENS DNA [id number] 00:00:00 Test Item Value Reference Range Interpretation Comments ANDIE SPECIES (test code = 78828) NEGATIVE G. VAGINALIS (test code = 37130) NEGATIVE T. VAGINALIS (test code = 41559) NEGATIVE VAGINAL PATHOGENS DNA [id number] 00:00:00 Test Item Value Reference Range Interpretation Comments ANDIE SPECIES (test code = 02264) NEGATIVE G. VAGINALIS (test code = 06901) NEGATIVE T. VAGINALIS (test code = 19751) NEGATIVE VAGINAL PATHOGENS DNA [id number] 00:00:00 Test Item Value Reference Range Interpretation Comments ANDIE SPECIES (test code = 88041) NEGATIVE G. VAGINALIS (test code = 13390) NEGATIVE T. VAGINALIS (test code = 28959) NEGATIVE VAGINAL PATHOGENS DNA [id number] 00:00:00 Test Item Value Reference Range Interpretation Comments ANDIE SPECIES (test code = 58208) NEGATIVE G. VAGINALIS (test code = 81162) NEGATIVE T. VAGINALIS (test code = 24295) NEGATIVE VAGINAL PATHOGENS DNA [id number] 00:00:00 Test Item Value Reference Range Interpretation Comments ANDIE SPECIES (test code = 21760) NEGATIVE G. VAGINALIS (test code = 73709) NEGATIVE T. VAGINALIS (test code = 42418) NEGATIVE VAGINAL PATHOGENS DNA [id number] 00:00:00 Test Item Value Reference Range Interpretation Comments ANDIE SPECIES (test code = 68285) NEGATIVE G. VAGINALIS (test code = 78260) NEGATIVE T. VAGINALIS (test code = 06752) NEGATIVE VAGINAL PATHOGENS DNA [id number] 00:00:00 Test Item Value Reference Range Interpretation Comments ANDIE SPECIES (test code = 31795) NEGATIVE G. VAGINALIS (test code = 74725) NEGATIVE T. VAGINALIS (test code = 30917) NEGATIVE VAGINAL PATHOGENS DNA [id number] 00:00:00 Test Item Value Reference Range Interpretation Comments ANDIE SPECIES (test code = ) NEGATIVE G. VAGINALIS (test code = 75161) NEGATIVE T. VAGINALIS (test code = 76935) NEGATIVE VAGINAL PATHOGENS DNA [id number] 00:00:00 Test Item Value Reference Range Interpretation Comments ANDIE SPECIES (test code = ) NEGATIVE G. VAGINALIS (test code = 54474) NEGATIVE T. VAGINALIS (test code = 24338) NEGATIVE - XR FOREARM 2 VIEWS [id number] 09:10:00 [facility] : 1980 Sex: F PatientName: Isaac FRANCOVONNE Unit No: [id number] EXAMS: CPT CODE: [id number] XR FORE[place] [address] [place] [address] Left forearm and wrist 4 views COMMENT: There is no evidence for fracture or subluxation. No focal bony lesions are seen. at 0910 Reported and signed by: Prasad Marina MD CC: Rafy Ferguson MD Technologist: Marie Johnson(R) Transcribed D/ (0910) [facility] NAME: MARGE FRANCO [address] [place] [address] PHYS: HAMST. - Rafy Ferguson Ny : 1980 AGE: 40 SEX: F [place] [address] LOC: TEOFILO PHONE #: [phone] EXAM DATE: 08/02/2020 STATUS: DEP ER FAX #: [phone] RAD #: D/C DT PAGE 1 Signed Report Patient Name: MARGE FRANCO Unit No: [id number] EXAMS: CPT CODE: [id number] XR FORE[place] [address] [place] [address] (Continued) Orig Print D/T: S: 08/04/2020(0914) [facility] NAME: MARGE FRANCO [address] [place] [address] PHYS: HAMST.Rafy Paiz Ny : 1980 AGE: 40 SEX: F [place] [address] LOC: TEOFILO PHONE #: [phone] EXAM DATE: 08/02/2020 STATUS: DEP ER FAX #: [phone] RAD #: D/C DT PAGE 2 Signed ReportCULTURE, [id number] 00:00:00 Test Item Value Reference Range Interpretation Comments CULTURE, URINE (test SPECIMEN NUMBER: code = 81844) [id number] CULTURE, [id number] 00:00:00 Test Item Value Reference Range Interpretation Comments CULTURE, URINE (test SPECIMEN NUMBER: code = 10928) [id number] CULTURE, [id number] 00:00:00 Test Item Value Reference Range Interpretation Comments CULTURE, URINE (test SPECIMEN NUMBER: code = 11617) [id number] CULTURE, [id number] 00:00:00 Test Item Value Reference Range Interpretation Comments CULTURE, URINE (test SPECIMEN NUMBER: code = 82195) [id number] CULTURE, [id number] 00:00:00 Test Item Value Reference Range Interpretation Comments CULTURE, URINE (test SPECIMEN NUMBER: code = 90436) [id number] CULTURE, [id number] 00:00:00 Test Item Value Reference Range Interpretation Comments CULTURE, URINE (test SPECIMEN NUMBER: code = 98446) [id number] CULTURE, [id number] 00:00:00 Test Item Value Reference Range Interpretation Comments CULTURE, URINE (test SPECIMEN NUMBER: code = 18455) [id number] CULTURE, [id number] 00:00:00 Test Item Value Reference Range Interpretation Comments CULTURE, URINE (test SPECIMEN NUMBER: code = 35879) [id number] CULTURE, [id number] 00:00:00 Test Item Value Reference Range Interpretation Comments CULTURE, URINE (test SPECIMEN NUMBER: code = 78156) [id number] CULTURE, [id number] 00:00:00 Test Item Value Reference Range Interpretation Comments CULTURE, URINE (test SPECIMEN NUMBER: code = 82730) [id number] CULTURE, [id number] 00:00:00 Test Item Value Reference Range Interpretation Comments CULTURE, URINE (test SPECIMEN NUMBER: code = 17937) [id number] CULTURE, [id number] 00:00:00 Test Item Value Reference Range Interpretation Comments CULTURE, URINE (test SPECIMEN NUMBER: code = 38347) [id number] CULTURE, [id number] 00:00:00 Test Item Value Reference Range Interpretation Comments CULTURE, URINE (test SPECIMEN NUMBER: code = 57544) [id number] CULTURE, [id number] 00:00:00 Test Item Value Reference Range Interpretation Comments CULTURE, URINE (test SPECIMEN NUMBER: code = 17539) [id number] CULTURE, [id number] 00:00:00 Test Item Value Reference Range Interpretation Comments CULTURE, URINE (test SPECIMEN NUMBER: code = 31423) [id number] CULTURE, [id number] 00:00:00 Test Item Value Reference Range Interpretation Comments CULTURE, URINE (test SPECIMEN NUMBER: code = 26680) [id number] CULTURE, [id number] 00:00:00 Test Item Value Reference Range Interpretation Comments CULTURE, URINE (test SPECIMEN NUMBER: code = 00404) [id number] CULTURE, [id number] 00:00:00 Test Item Value Reference Range Interpretation Comments CULTURE, URINE (test SPECIMEN NUMBER: code = 98520) [id number] CULTURE, [id number] 00:00:00 Test Item Value Reference Range Interpretation Comments CULTURE, URINE (test SPECIMEN NUMBER: code = 84399) [id number] CULTURE, [id number] 00:00:00 Test Item Value Reference Range Interpretation Comments CULTURE, URINE (test SPECIMEN NUMBER: code = 27148) [id number] CULTURE, [id number] 00:00:00 Test Item Value Reference Range Interpretation Comments CULTURE, URINE (test SPECIMEN NUMBER: code = 40651) [id number] SARS-CoV-2 (COVID-19) by RT-PCR (HIGH RISK)2020-04-23 00:00:00 Test Item Value Reference Range Interpretation Comments SARS-CoV-2 INTERPRETATION Negative (test code = 97173) SOURCE (test code = 28653) Nasal_Swab_in_VTM__ UTM SARS-CoV-2 (COVID-19) by RT-PCR (HIGH RISK)2020-04-23 00:00:00 Test Item Value Reference Range Interpretation Comments SARS-CoV-2 INTERPRETATION Negative (test code = 83160) SOURCE (test code = 19344) Nasal_Swab_in_VTM__ UTM SARS-CoV-2 (COVID-19) by RT-PCR (HIGH RISK)2020-04-23 00:00:00 Test Item Value Reference Range Interpretation Comments SARS-CoV-2 INTERPRETATION Negative (test code = 08831) SOURCE (test code = 29217) Nasal_Swab_in_VTM__ UTM SARS-CoV-2 (COVID-19) by RT-PCR (HIGH RISK)2020-04-23 00:00:00 Test Item Value Reference Range Interpretation Comments SARS-CoV-2 INTERPRETATION Negative (test code = 76989) SOURCE (test code = 91168) Nasal_Swab_in_VTM__ UTM SARS-CoV-2 (COVID-19) by RT-PCR (HIGH RISK)2020-04-23 00:00:00 Test Item Value Reference Range Interpretation Comments SARS-CoV-2 INTERPRETATION Negative (test code = 40811) SOURCE (test code = 49512) Nasal_Swab_in_VTM__ UTM SARS-CoV-2 (COVID-19) by RT-PCR (HIGH RISK)2020-04-23 00:00:00 Test Item Value Reference Range Interpretation Comments SARS-CoV-2 INTERPRETATION Negative (test code = 39509) SOURCE (test code = 96623) Nasal_Swab_in_VTM__ UTM SARS-CoV-2 (COVID-19) by RT-PCR (HIGH RISK)2020-04-23 00:00:00 Test Item Value Reference Range Interpretation Comments SARS-CoV-2 INTERPRETATION Negative (test code = 16396) SOURCE (test code = 76339) Nasal_Swab_in_VTM__ UTM SARS-CoV-2 (COVID-19) by RT-PCR (HIGH RISK)2020-04-23 00:00:00 Test Item Value Reference Range Interpretation Comments SARS-CoV-2 INTERPRETATION Negative (test code = 22866) SOURCE (test code = 37732) Nasal_Swab_in_VTM__ UTM SARS-CoV-2 (COVID-19) by RT-PCR (HIGH RISK)2020-04-23 00:00:00 Test Item Value Reference Range Interpretation Comments SARS-CoV-2 INTERPRETATION Negative (test code = 97362) SOURCE (test code = 19537) Nasal_Swab_in_VTM__ UTM SARS-CoV-2 (COVID-19) by RT-PCR (HIGH RISK)2020-04-23 00:00:00 Test Item Value Reference Range Interpretation Comments SARS-CoV-2 INTERPRETATION Negative (test code = 35886) SOURCE (test code = 67670) Nasal_Swab_in_VTM__ UTM SARS-CoV-2 (COVID-19) by RT-PCR (HIGH RISK)2020-04-23 00:00:00 Test Item Value Reference Range Interpretation Comments SARS-CoV-2 INTERPRETATION Negative (test code = 10717) SOURCE (test code = 07252) Nasal_Swab_in_VTM__ UTM COMPREHENSIVE [facility] [id number] 00:00:00 Test Item Value Reference Range Interpretation Comments GLUCOSE (test code = 2217) 217 MG/DL BUN (test code = 2208) 13 MG/DL CREATININE (test code = 2214) 0.64 MG/DL eGFR AMER. (test code 128 ML/MIN/1.73 = 58946) eGFR NON- AMER. (test 110 ML/MIN/1.73 code = 18029) CALC BUN/CREAT (test code = 20 RATIO [...] (test code = 2219) 47 U/L CULTURE, [id number] 00:00:00 Test Item Value Reference Range Interpretation Comments CULTURE, URINE (test SPECIMEN NUMBER: code = 24387 [id number] COMPREHENSIVE METABOLIC [id number] 00:00:00 Test Item Value Reference Range Interpretation Comments GLUCOSE (test code = 2217) 217 MG/DL BUN (test code = 2208) 13 MG/DL CREATININE (test code = 2214) 0.64 MG/DL eGFR AMER. (test code 128 ML/MIN/1.73 = 09886) eGFR NON- AMER. (test 110 ML/MIN/1.73 code = 27591) CALC BUN/CREAT (test code = 20 RATIO [...] (test code = 2219) 47 U/L CULTURE, [id number] 00:00:00 Test Item Value Reference Range Interpretation Comments CULTURE, URINE (test SPECIMEN NUMBER: code = 75861) [id number] LIPID [id number] 00:00:00 Test Item Value Reference Range Interpretation Comments CHOLESTEROL (test code = 2210) 220 MG/DL TRIGLYCERIDES (test code = 2232) 873 MG/DL HDL CHOLESTEROL (test code = 30 MG/DL 2220) CALC LDL CHOL (test code = 2237) (NOTE) MG/DL RISK RATIO LDL/HDL (test code = (NOTE) RATIO 2238) LIPID [id number] 00:00:00 Test Item Value Reference Range Interpretation Comments CHOLESTEROL (test code = 2210) 220 MG/DL TRIGLYCERIDES (test code = 2232) 873 MG/DL HDL CHOLESTEROL (test code = 30 MG/DL 2220) CALC LDL CHOL (test code = 2237) (NOTE) MG/DL RISK RATIO LDL/HDL (test code = (NOTE) RATIO 2238) HEMOGLOBIN [id number] 00:00:00 Test Item Value Reference Range Interpretation Comments HEMOGLOBIN A1c (test code = 79773) 10.9 % HEMOGLOBIN [id number] 00:00:00 Test Item Value Reference Range Interpretation Comments HEMOGLOBIN A1c (test code = 04072) 10.9 % HEMOGLOBIN [id number] 00:00:00 Test Item Value Reference Range Interpretation Comments HEMOGLOBIN A1c (test code = 20411) 10.9 % COMPREHENSIVE METABOLIC [id number] 00:00:00 Test Item Value Reference Range Interpretation Comments GLUCOSE (test code = 2217) 217 MG/DL BUN (test code = 2208) 13 MG/DL CREATININE (test code = 2214) 0.64 MG/DL eGFR AMER. (test code 128 ML/MIN/1.73 = 01720) eGFR NON- AMER. (test 110 ML/MIN/1.73 code = 68995) CALC BUN/CREAT (test code = 20 RATIO [...] code = 2219) 47 U/L COMPREHENSIVE METABOLIC [id number] 00:00:00 Test Item Value Reference Range Interpretation Comments GLUCOSE (test code = 2217) 217 MG/DL BUN (test code = 2208) 13 MG/DL CREATININE (test code = 2214) 0.64 MG/DL eGFR AMER. (test code 128 ML/MIN/1.73 = 62565) eGFR NON- AMER. (test 110 ML/MIN/1.73 code = 09614) CALC BUN/CREAT (test code = 20 RATIO [...] (test code = 2219) 47 U/L CULTURE, [id number] 00:00:00 Test Item Value Reference Range Interpretation Comments CULTURE, URINE (test SPECIMEN NUMBER: code = 44944) [id number] CULTURE, [id number] 00:00:00 Test Item Value Reference Range Interpretation Comments CULTURE, URINE (test SPECIMEN NUMBER: code = 56806) [id number] LIPID [id number] 00:00:00 Test Item Value Reference Range Interpretation Comments CHOLESTEROL (test code = 2210) 220 MG/DL TRIGLYCERIDES (test code = 2232) 873 MG/DL HDL CHOLESTEROL (test code = 30 MG/DL 2220) CALC LDL CHOL (test code = 2237) (NOTE) MG/DL RISK RATIO LDL/HDL (test code = (NOTE) RATIO 2238) LIPID [id number] 00:00:00 Test Item Value Reference Range Interpretation Comments CHOLESTEROL (test code = 2210) 220 MG/DL TRIGLYCERIDES (test code = 2232) 873 MG/DL HDL CHOLESTEROL (test code = 30 MG/DL 2220) CALC LDL CHOL (test code = 2237) (NOTE) MG/DL RISK RATIO LDL/HDL (test code = (NOTE) RATIO 2238) HEMOGLOBIN [id number] 00:00:00 Test Item Value Reference Range Interpretation Comments HEMOGLOBIN A1c (test code = 83792) 10.9 % HEMOGLOBIN [id number] 00:00:00 Test Item Value Reference Range Interpretation Comments HEMOGLOBIN A1c (test code = 65127) 10.9 % HEMOGLOBIN [id number] 00:00:00 Test Item Value Reference Range Interpretation Comments HEMOGLOBIN A1c (test code = 97385) 10.9 % CULTURE, [id number] 00:00:00 Test Item Value Reference Range Interpretation Comments CULTURE, URINE (test SPECIMEN NUMBER: code = 96655) [id number] CULTURE, [id number] 00:00:00 Test Item Value Reference Range Interpretation Comments CULTURE, URINE (test SPECIMEN NUMBER: code = 87044) [id number] COMPREHENSIVE METABOLIC [id number] 00:00:00 Test Item Value Reference Range Interpretation Comments GLUCOSE (test code = 2217) 217 MG/DL BUN (test code = 2208) 13 MG/DL CREATININE (test code = 2214) 0.64 MG/DL eGFR AMER. (test code 128 ML/MIN/1.73 = 09481) eGFR NON- AMER. (test 110 ML/MIN/1.73 code = 97180) CALC BUN/CREAT (test code = 20 RATIO [...] code = 2219) 47 U/L COMPREHENSIVE METABOLIC [id number] 00:00:00 Test Item Value Reference Range Interpretation Comments GLUCOSE (test code = 2217) 217 MG/DL BUN (test code = 2208) 13 MG/DL CREATININE (test code = 2214) 0.64 MG/DL eGFR AMER. (test code 128 ML/MIN/1.73 = 76683) eGFR NON- AMER. (test 110 ML/MIN/1.73 code = 94335) CALC BUN/CREAT (test code = 20 RATIO [...] (test code = 2219) 47 U/L LIPID [id number] 00:00:00 Test Item Value Reference Range Interpretation Comments CHOLESTEROL (test code = 2210) 220 MG/DL TRIGLYCERIDES (test code = 2232) 873 MG/DL HDL CHOLESTEROL (test code = 30 MG/DL 2220) CALC LDL CHOL (test code = 2237) (NOTE) MG/DL RISK RATIO LDL/HDL (test code = (NOTE) RATIO 2238) LIPID [id number] 00:00:00 Test Item Value Reference Range Interpretation Comments CHOLESTEROL (test code = 2210) 220 MG/DL TRIGLYCERIDES (test code = 2232) 873 MG/DL HDL CHOLESTEROL (test code = 30 MG/DL 2220) CALC LDL CHOL (test code = 2237) (NOTE) MG/DL RISK RATIO LDL/HDL (test code = (NOTE) RATIO 2238) HEMOGLOBIN [id number] 00:00:00 Test Item Value Reference Range Interpretation Comments HEMOGLOBIN A1c (test code = 63849) 10.9 % HEMOGLOBIN [id number] 00:00:00 Test Item Value Reference Range Interpretation Comments HEMOGLOBIN A1c (test code = 95858) 10.9 % HEMOGLOBIN [id number] 00:00:00 Test Item Value Reference Range Interpretation Comments HEMOGLOBIN A1c (test code = 57709) 10.9 % CULTURE, [id number] 00:00:00 Test Item Value Reference Range Interpretation Comments CULTURE, URINE (test SPECIMEN NUMBER: code = 95948) [id number] COMPREHENSIVE METABOLIC [id number] 00:00:00 Test Item Value Reference Range Interpretation Comments GLUCOSE (test code = 2217) 217 MG/DL BUN (test code = 2208) 13 MG/DL CREATININE (test code = 2214) 0.64 MG/DL eGFR AMER. (test code 128 ML/MIN/1.73 = 14082) eGFR NON- AMER. (test 110 ML/MIN/1.73 code = 13394) CALC BUN/CREAT (test code = 20 RATIO [...] code = 2219) 47 U/L COMPREHENSIVE METABOLIC [id number] 00:00:00 Test Item Value Reference Range Interpretation Comments GLUCOSE (test code = 2217) 217 MG/DL BUN (test code = 2208) 13 MG/DL CREATININE (test code = 2214) 0.64 MG/DL eGFR AMER. (test code 128 ML/MIN/1.73 = 80718) eGFR NON- AMER. (test 110 ML/MIN/1.73 code = 36646) CALC BUN/CREAT (test code = 20 RATIO [...] (test code = 2219) 47 U/L CULTURE, [id number] 00:00:00 Test Item Value Reference Range Interpretation Comments CULTURE, URINE (test SPECIMEN NUMBER: code = 60035 [id number] LIPID [id number] 00:00:00 Test Item Value Reference Range Interpretation Comments CHOLESTEROL (test code = 2210) 220 MG/DL TRIGLYCERIDES (test code = 2232) 873 MG/DL HDL CHOLESTEROL (test code = 30 MG/DL 2220) CALC LDL CHOL (test code = 2237) (NOTE) MG/DL RISK RATIO LDL/HDL (test code = (NOTE) RATIO 2238) LIPID [id number] 00:00:00 Test Item Value Reference Range Interpretation Comments CHOLESTEROL (test code = 2210) 220 MG/DL TRIGLYCERIDES (test code = 2232) 873 MG/DL HDL CHOLESTEROL (test code = 30 MG/DL 2220) CALC LDL CHOL (test code = 2237) (NOTE) MG/DL RISK RATIO LDL/HDL (test code = (NOTE) RATIO 2238) HEMOGLOBIN [id number] 00:00:00 Test Item Value Reference Range Interpretation Comments HEMOGLOBIN A1c (test code = 65711) 10.9 % HEMOGLOBIN [id number] 00:00:00 Test Item Value Reference Range Interpretation Comments HEMOGLOBIN A1c (test code = 66745) 10.9 % HEMOGLOBIN [id number] 00:00:00 Test Item Value Reference Range Interpretation Comments HEMOGLOBIN A1c (test code = 84094) 10.9 % COMPREHENSIVE METABOLIC [id number] 00:00:00 Test Item Value Reference Range Interpretation Comments GLUCOSE (test code = 2217) 217 MG/DL BUN (test code = 2208) 13 MG/DL CREATININE (test code = 2214) 0.64 MG/DL eGFR AMER. (test code 128 ML/MIN/1.73 = 29607) eGFR NON- AMER. (test 110 ML/MIN/1.73 code = 29737) CALC BUN/CREAT (test code = 20 RATIO [...] (test code = 2219) 47 U/L CULTURE, [id number] 00:00:00 Test Item Value Reference Range Interpretation Comments CULTURE, URINE (test SPECIMEN NUMBER: code = 82473) [id number] CULTURE, [id number] 00:00:00 Test Item Value Reference Range Interpretation Comments CULTURE, URINE (test SPECIMEN NUMBER: code = 37141) [id number] COMPREHENSIVE METABOLIC [id number] 00:00:00 Test Item Value Reference Range Interpretation Comments GLUCOSE (test code = 2217) 217 MG/DL BUN (test code = 2208) 13 MG/DL CREATININE (test code = 2214) 0.64 MG/DL eGFR AMER. (test code 128 ML/MIN/1.73 = 74534) eGFR NON- AMER. (test 110 ML/MIN/1.73 code = 15876) CALC BUN/CREAT (test code = 20 RATIO [...] (test code = 2219) 47 U/L LIPID [id number] 00:00:00 Test Item Value Reference Range Interpretation Comments CHOLESTEROL (test code = 2210) 220 MG/DL TRIGLYCERIDES (test code = 2232) 873 MG/DL HDL CHOLESTEROL (test code = 30 MG/DL 2219) CALC LDL CHOL (test code = 2237) (NOTE) MG/DL RISK RATIO LDL/HDL (test code = (NOTE) RATIO 2238) LIPID [id number] 00:00:00 Test Item Value Reference Range Interpretation Comments CHOLESTEROL (test code = 2210) 220 MG/DL TRIGLYCERIDES (test code = 2232) 873 MG/DL HDL CHOLESTEROL (test code = 30 MG/DL 0) CALC LDL CHOL (test code = 2237) (NOTE) MG/DL RISK RATIO LDL/HDL (test code = (NOTE) RATIO 2238) HEMOGLOBIN [id number] 00:00:00 Test Item Value Reference Range Interpretation Comments HEMOGLOBIN A1c (test code = 50945) 10.9 % HEMOGLOBIN [id number] 00:00:00 Test Item Value Reference Range Interpretation Comments HEMOGLOBIN A1c (test code = 63969) 10.9 % HEMOGLOBIN [id number] 00:00:00 Test Item Value Reference Range Interpretation Comments HEMOGLOBIN A1c (test code = 48984) 10.9 % COMPREHENSIVE METABOLIC [id number] 00:00:00 Test Item Value Reference Range Interpretation Comments GLUCOSE (test code = 2217) 217 MG/DL BUN (test code = 2208) 13 MG/DL CREATININE (test code = 2214) 0.64 MG/DL eGFR AMER. (test code 128 ML/MIN/1.73 = 21572) eGFR NON- AMER. (test 110 ML/MIN/1.73 code = 61089) CALC BUN/CREAT (test code = 20 RATIO [...] (test code = 2219) 47 U/L CULTURE, [id number] 00:00:00 Test Item Value Reference Range Interpretation Comments CULTURE, URINE (test SPECIMEN NUMBER: code = 73854) [id number] CULTURE, [id number] 00:00:00 Test Item Value Reference Range Interpretation Comments CULTURE, URINE (test SPECIMEN NUMBER: code = 91511) [id number] COMPREHENSIVE METABOLIC [id number] 00:00:00 Test Item Value Reference Range Interpretation Comments GLUCOSE (test code = 2217) 217 MG/DL BUN (test code = 2208) 13 MG/DL CREATININE (test code = 2214) 0.64 MG/DL eGFR AMER. (test code 128 ML/MIN/1.73 = 68294) eGFR NON- AMER. (test 110 ML/MIN/1.73 code = 91011) CALC BUN/CREAT (test code = 20 RATIO [...] (test code = 2219) 47 U/L LIPID [id number] 00:00:00 Test Item Value Reference Range Interpretation Comments CHOLESTEROL (test code = 2210) 220 MG/DL TRIGLYCERIDES (test code = 2232) 873 MG/DL HDL CHOLESTEROL (test code = 30 MG/DL 2220) CALC LDL CHOL (test code = 2237) (NOTE) MG/DL RISK RATIO LDL/HDL (test code = (NOTE) RATIO 2238) LIPID [id number] 00:00:00 Test Item Value Reference Range Interpretation Comments CHOLESTEROL (test code = 2210) 220 MG/DL TRIGLYCERIDES (test code = 2232) 873 MG/DL HDL CHOLESTEROL (test code = 30 MG/DL 0) CALC LDL CHOL (test code = 2237) (NOTE) MG/DL RISK RATIO LDL/HDL (test code = (NOTE) RATIO 2238) HEMOGLOBIN [id number] 00:00:00 Test Item Value Reference Range Interpretation Comments HEMOGLOBIN A1c (test code = 38550) 10.9 % HEMOGLOBIN [id number] 00:00:00 Test Item Value Reference Range Interpretation Comments HEMOGLOBIN A1c (test code = 52138) 10.9 % HEMOGLOBIN [id number] 00:00:00 Test Item Value Reference Range Interpretation Comments HEMOGLOBIN A1c (test code = 24739) 10.9 % COMPREHENSIVE METABOLIC [id number] 00:00:00 Test Item Value Reference Range Interpretation Comments GLUCOSE (test code = 2217) 217 MG/DL BUN (test code = 2208) 13 MG/DL CREATININE (test code = 2214) 0.64 MG/DL eGFR AMER. (test code 128 ML/MIN/1.73 = 32175) eGFR NON- AMER. (test 110 ML/MIN/1.73 code = 54877) CALC BUN/CREAT (test code = 20 RATIO [...] code = 2219) 47 U/L COMPREHENSIVE METABOLIC [id number] 00:00:00 Test Item Value Reference Range Interpretation Comments GLUCOSE (test code = 2217) 217 MG/DL BUN (test code = 2208) 13 MG/DL CREATININE (test code = 2214) 0.64 MG/DL eGFR AMER. (test code 128 ML/MIN/1.73 = 45781) eGFR NON- AMER. (test 110 ML/MIN/1.73 code = 54067) CALC BUN/CREAT (test code = 20 RATIO [...] (test code = 2219) 47 U/L CULTURE, [id number] 00:00:00 Test Item Value Reference Range Interpretation Comments CULTURE, URINE (test SPECIMEN NUMBER: code = 31377 [id number] COMPREHENSIVE METABOLIC [id number] 00:00:00 Test Item Value Reference Range Interpretation Comments GLUCOSE (test code = 2217) 217 MG/DL BUN (test code = 2208) 13 MG/DL CREATININE (test code = 2214) 0.64 MG/DL eGFR AMER. (test code 128 ML/MIN/1.73 = 48552) eGFR NON- AMER. (test 110 ML/MIN/1.73 code = 95608) CALC BUN/CREAT (test code = 20 RATIO [...] (test code = 2219) 47 U/L CULTURE, [id number] 00:00:00 Test Item Value Reference Range Interpretation Comments CULTURE, URINE (test SPECIMEN NUMBER: code = 71191) [id number] LIPID [id number] 00:00:00 Test Item Value Reference Range Interpretation Comments CHOLESTEROL (test code = 2210) 220 MG/DL TRIGLYCERIDES (test code = 2232) 873 MG/DL HDL CHOLESTEROL (test code = 30 MG/DL 2220) CALC LDL CHOL (test code = 2237) (NOTE) MG/DL RISK RATIO LDL/HDL (test code = (NOTE) RATIO 2238) LIPID [id number] 00:00:00 Test Item Value Reference Range Interpretation Comments CHOLESTEROL (test code = 2210) 220 MG/DL TRIGLYCERIDES (test code = 2232) 873 MG/DL HDL CHOLESTEROL (test code = 30 MG/DL 2220) CALC LDL CHOL (test code = 2237) (NOTE) MG/DL RISK RATIO LDL/HDL (test code = (NOTE) RATIO 2238) HEMOGLOBIN [id number] 00:00:00 Test Item Value Reference Range Interpretation Comments HEMOGLOBIN A1c (test code = 64693) 10.9 % HEMOGLOBIN [id number] 00:00:00 Test Item Value Reference Range Interpretation Comments HEMOGLOBIN A1c (test code = 18081) 10.9 % HEMOGLOBIN [id number] 00:00:00 Test Item Value Reference Range Interpretation Comments HEMOGLOBIN A1c (test code = 31607) 10.9 % CULTURE, [id number] 00:00:00 Test Item Value Reference Range Interpretation Comments CULTURE, URINE (test SPECIMEN NUMBER: code = 48771) [id number] LIPID [id number] 00:00:00 Test Item Value Reference Range Interpretation Comments CHOLESTEROL (test code = 2210) 220 MG/DL TRIGLYCERIDES (test code = 2232) 873 MG/DL HDL CHOLESTEROL (test code = 30 MG/DL 2220) CALC LDL CHOL (test code = 2237) (NOTE) MG/DL RISK RATIO LDL/HDL (test code = (NOTE) RATIO 2238) HEMOGLOBIN [id number] 00:00:00 Test Item Value Reference Range Interpretation Comments HEMOGLOBIN A1c (test code = 25727) 10.9 % HEMOGLOBIN [id number] 00:00:00 Test Item Value Reference Range Interpretation Comments HEMOGLOBIN A1c (test code = 27843) 10.9 % CULTURE, [id number] 00:00:00 Test Item Value Reference Range Interpretation Comments CULTURE, URINE (test SPECIMEN NUMBER: code = 98747) [id number] COMPREHENSIVE METABOLIC [id number] 00:00:00 Test Item Value Reference Range Interpretation Comments GLUCOSE (test code = 2217) 217 MG/DL BUN (test code = 2208) 13 MG/DL CREATININE (test code = 2214) 0.64 MG/DL eGFR AMER. (test code 128 ML/MIN/1.73 = 73487) eGFR NON- AMER. (test 110 ML/MIN/1.73 code = 60841) CALC BUN/CREAT (test code = 20 RATIO [...] (test code = 2219) 47 U/L CULTURE, [id number] 00:00:00 Test Item Value Reference Range Interpretation Comments CULTURE, URINE (test SPECIMEN NUMBER: code = 90262) [id number] COMPREHENSIVE METABOLIC [id number] 00:00:00 Test Item Value Reference Range Interpretation Comments GLUCOSE (test code = 2217) 217 MG/DL BUN (test code = 2208) 13 MG/DL CREATININE (test code = 2214) 0.64 MG/DL eGFR AMER. (test code 128 ML/MIN/1.73 = 50482) eGFR NON- AMER. (test 110 ML/MIN/1.73 code = 51714) CALC BUN/CREAT (test code = 20 RATIO [...] (test code = 2219) 47 U/L LIPID [id number] 00:00:00 Test Item Value Reference Range Interpretation Comments CHOLESTEROL (test code = 2210) 220 MG/DL TRIGLYCERIDES (test code = 2232) 873 MG/DL HDL CHOLESTEROL (test code = 30 MG/DL 2220) CALC LDL CHOL (test code = 2237) (NOTE) MG/DL RISK RATIO LDL/HDL (test code = (NOTE) RATIO 2238) LIPID [id number] 00:00:00 Test Item Value Reference Range Interpretation Comments CHOLESTEROL (test code = 2210) 220 MG/DL TRIGLYCERIDES (test code = 2232) 873 MG/DL HDL CHOLESTEROL (test code = 30 MG/DL 2220) CALC LDL CHOL (test code = 2237) (NOTE) MG/DL RISK RATIO LDL/HDL (test code = (NOTE) RATIO 2238) HEMOGLOBIN [id number] 00:00:00 Test Item Value Reference Range Interpretation Comments HEMOGLOBIN A1c (test code = 83106) 10.9 % HEMOGLOBIN [id number] 00:00:00 Test Item Value Reference Range Interpretation Comments HEMOGLOBIN A1c (test code = 90711) 10.9 % HEMOGLOBIN [id number] 00:00:00 Test Item Value Reference Range Interpretation Comments HEMOGLOBIN A1c (test code = 10673) 10.9 % CULTURE, [id number] 00:00:00 Test Item Value Reference Range Interpretation Comments CULTURE, URINE (test SPECIMEN NUMBER: code = 32699) [id number] COMPREHENSIVE METABOLIC [id number] 00:00:00 Test Item Value Reference Range Interpretation Comments GLUCOSE (test code = 2217) 217 MG/DL BUN (test code = 2208) 13 MG/DL CREATININE (test code = 2214) 0.64 MG/DL eGFR AMER. (test code 128 ML/MIN/1.73 = 38812) eGFR NON- AMER. (test 110 ML/MIN/1.73 code = 30324) CALC BUN/CREAT (test code = 20 RATIO [...] (test code = 2219) 47 U/L CULTURE, [id number] 00:00:00 Test Item Value Reference Range Interpretation Comments CULTURE, URINE (test SPECIMEN NUMBER: code = 20616) [id number] COMPREHENSIVE METABOLIC [id number] 00:00:00 Test Item Value Reference Range Interpretation Comments GLUCOSE (test code = 2217) 217 MG/DL BUN (test code = 2208) 13 MG/DL CREATININE (test code = 2214) 0.64 MG/DL eGFR AMER. (test code 128 ML/MIN/1.73 = 54841) eGFR NON- AMER. (test 110 ML/MIN/1.73 code = 91121) CALC BUN/CREAT (test code = 20 RATIO [...] (test code = 2219) 47 U/L LIPID [id number] 00:00:00 Test Item Value Reference Range Interpretation Comments CHOLESTEROL (test code = 2210) 220 MG/DL TRIGLYCERIDES (test code = 2232) 873 MG/DL HDL CHOLESTEROL (test code = 30 MG/DL 2220) CALC LDL CHOL (test code = 2237) (NOTE) MG/DL RISK RATIO LDL/HDL (test code = (NOTE) RATIO 2238) LIPID [id number] 00:00:00 Test Item Value Reference Range Interpretation Comments CHOLESTEROL (test code = 2210) 220 MG/DL TRIGLYCERIDES (test code = 2232) 873 MG/DL HDL CHOLESTEROL (test code = 30 MG/DL 2220) CALC LDL CHOL (test code = 2237) (NOTE) MG/DL RISK RATIO LDL/HDL (test code = (NOTE) RATIO 2238) HEMOGLOBIN [id number] 00:00:00 Test Item Value Reference Range Interpretation Comments HEMOGLOBIN A1c (test code = 04680) 10.9 % HEMOGLOBIN [id number] 00:00:00 Test Item Value Reference Range Interpretation Comments HEMOGLOBIN A1c (test code = 70991) 10.9 % HEMOGLOBIN [id number] 00:00:00 Test Item Value Reference Range Interpretation Comments HEMOGLOBIN A1c (test code = 52630) 10.9 % COMPREHENSIVE METABOLIC [id number] 00:00:00 Test Item Value Reference Range Interpretation Comments GLUCOSE (test code = 2217) 217 MG/DL BUN (test code = 2208) 13 MG/DL CREATININE (test code = 2214) 0.64 MG/DL eGFR AMER. (test code 128 ML/MIN/1.73 = 32919) eGFR NON- AMER. (test 110 ML/MIN/1.73 code = 93824) CALC BUN/CREAT (test code = 20 RATIO [...] (test code = 2219) 47 U/L CULTURE, [id number] 00:00:00 Test Item Value Reference Range Interpretation Comments CULTURE, URINE (test SPECIMEN NUMBER: code = 50009) [id number] COMPREHENSIVE METABOLIC [id number] 00:00:00 Test Item Value Reference Range Interpretation Comments GLUCOSE (test code = 2217) 217 MG/DL BUN (test code = 2208) 13 MG/DL CREATININE (test code = 2214) 0.64 MG/DL eGFR AMER. (test code 128 ML/MIN/1.73 = 01690) eGFR NON- AMER. (test 110 ML/MIN/1.73 code = 95207) CALC BUN/CREAT (test code = 20 RATIO [...] (test code = 2219) 47 U/L CULTURE, [id number] 00:00:00 Test Item Value Reference Range Interpretation Comments CULTURE, URINE (test SPECIMEN NUMBER: code = 80631) [id number] LIPID [id number] 00:00:00 Test Item Value Reference Range Interpretation Comments CHOLESTEROL (test code = 2210) 220 MG/DL TRIGLYCERIDES (test code = 2232) 873 MG/DL HDL CHOLESTEROL (test code = 30 MG/DL 2220) CALC LDL CHOL (test code = 2237) (NOTE) MG/DL RISK RATIO LDL/HDL (test code = (NOTE) RATIO 2238) LIPID [id number] 00:00:00 Test Item Value Reference Range Interpretation Comments CHOLESTEROL (test code = 2210) 220 MG/DL TRIGLYCERIDES (test code = 2232) 873 MG/DL HDL CHOLESTEROL (test code = 30 MG/DL 2220) CALC LDL CHOL (test code = 2237) (NOTE) MG/DL RISK RATIO LDL/HDL (test code = (NOTE) RATIO 2238) HEMOGLOBIN [id number] 00:00:00 Test Item Value Reference Range Interpretation Comments HEMOGLOBIN A1c (test code = 48164) 10.9 % HEMOGLOBIN [id number] 00:00:00 Test Item Value Reference Range Interpretation Comments HEMOGLOBIN A1c (test code = 95753) 10.9 % HEMOGLOBIN [id number] 00:00:00 Test Item Value Reference Range Interpretation Comments HEMOGLOBIN A1c (test code = 72311) 10.9 % - XR ANKLE 3 + V [id number] 07:19:00 Patient Name: Marge Franco Unit No: [id number] EXAMS: CPT CODE: [id number] XR ANKLE 3 + V RT 56251 Right ankle 3 views COMMENT: There is [...] SAMANTHA MORALES, RT(R) Transcribed D/ (718) MickeyL [facility] NAME: Marge Franco [address] [place] [address] PHYS: Judi Cardenas DO : 1980 AGE: 40 SEX: F [place] [address] LOC: TEOFILO PHONE #: [phone] EXAM DATE: 02/13/2020 STATUS: DEP ER FAX #: [phone] RAD #: D/C DT PAGE 1 Signed Report Patient Name: Marge Franco Unit No: [id number] EXAMS: CPT CODE: [id number] XR ANKLE 3 + V RT 45341 (Continued) Orig Print D/T: S: 02/14/2020 (721) [facility] NAME: Marge Franco [facility] [facility] PHYS: Judi Cardenas DO : 1980 AGE: 40 SEX: F [place] [address] LOC: TEOFILO PHONE #: [phone] EXAM DATE: 02/13/2020 STATUS: DEP ER FAX #: [phone] RAD #: D/C DT PAGE 2 Signed Report- XR FOOT 2 VIEWS [id number] 07:19:00 Patient Name: Marge Franco Unit No: [id number] EXAMS: CPT CODE: [id number] XR FOOT 2 [place] [address] Right ankle 3 views COMMENT: There is [...] Technologist: SAMANTHA MORALES, RT(R) Transcribed D/ (718) NoelJCL [facility] NAME: Marge Franco [address] [facility] PHYS: Judi Cardenas DO : 1980 AGE: 40 SEX: F [place] [address] LOC: TEOFILO PHONE #: [phone] EXAM DATE: 02/13/2020 STATUS: DEP ER FAX #: [phone] RAD #: D/C DT PAGE 1 Signed Report Patient Name: Marge Franco Unit No: [id number] EXAMS:CPT CODE: [id number] XR FOOT [address] [place] [address] (Continued) Orig Print D/T: S: 02/14/2020 (721) [facility] NAME: Marge Franco [address] [place] [address] PHYS: Judi Cardenas DO : 1980 AGE: 40 SEX: F [place] [address] LOC: TEOFILO PHONE #: [phone] EXAM DATE: 02/13/2020 STATUS: DEP ER FAX #: [phone] RAD #: D/C DT PAGE 2 Signed [id number] 11:17:00 Test Item Value Reference Range Interpretation Comments GLUBED (test code = GLUBED) 119 mg/dL 60-125 N [id number] 08:15:00 Test Item Value Reference Range Interpretation Comments GLUBED (test code = GLUBED) 117 mg/dL 60-125 N Novel Coronavirus 2019 [id number] 17:12:00 Test Item Value Reference Range Interpretation Comments Novel Coronavirus 2019 Inhouse (test Negative Negative code = COVNONPUI) Novel Coronavirus 2019 [id number] 17:12:00 Test Item Value Reference Range Interpretation Comments Novel Coronavirus 2019 Inhouse (test Negative Negative code = COVNONPUI) CBC W/AUTO [id number] 20:19:00 Test Item Value Reference Range Interpretation [...] 0-0 N code = NRBC) BASIC METABOLIC [id number] 19:54:00 Test Item Value Reference Range Interpretation [...] RATE (test code = GFR) mL/mi n/1.73 i8Mupsjkvet Range:Healthy A dults >90 mL/min/1.73 m2 For Chronic Kid stoney Disease: Stage II Mild Decrease i n GFR 60-90 Stage III Moderate Decrea se in GFR 30-59 Stage IV Severe Decrease in GFR 15-29 Stage V Kidney Failure <15 CREATININE (test code 0.83 mg/dL 0.55-1.30 N = CREAT) CALCIUM (test code = 9.6 mg/dL 8.2-10.1 N CA) - CT LOWER EXTRM W/O C [id number] 14:57:00 Patient Name: MARGE FRANCO Unit No: [id number] EXAMS: CPT CODE: [id number] CT LOWER EXTRM W/[place] [address] [place] SCAN RIGHT ANKLE WITH RECONSTRUCTION DIAGNOSIS: [...] with ACR practice standards and adherence to sleep tech's recommendations. INDICATION: RIGHT ANKLE PAIN COMPARISON: None. COMMENT: Findings are as described above. at 1457 Reported and signed by: America Schuler MD CC: Elbert Wilson MD Technologist: Shaan Levine ns,RT(R) CTDI: DLP: Trnscrpt: 01/04/2020 (7017) [email or web address] [facility] NAME: MARGE FRANCO [address] PHYS: Elbert Rodrigues MD : 1980 AGE: 39 SEX: F [place] [address] LOC: Y.RAD PHONE #: [phone] EXAM DATE: 01/04/2020 STATUS: REG CLI FAX #: [phone] RAD #: D/C DT PAGE 1 Signed Report Patient Name: MARGE FRANCOOTILDE Unit No: [id number] EXAMS: CPT CODE: [id number] CT L[place] EXTRM W/[place] [address] (Continued) Orig Print D/T: S: 01/04/2020 (1500) [facility] NAME: MARGE FRANCO [address] PHYS: Elbert Rodrigues MD : 1980 AGE: 39 SEX: F [place] [address] LOC: Y.RAD PHONE #: [phone] EXAM DATE: 01/04/2020 STATUS: REG CLI FAX #: [phone] RAD #: D/C DT PAGE 2 Signed ReportCULTURE, URINE 2019-12-22 00:00:00 Test Item Value Reference Range Interpretation Comments CULTURE, URINE (test SPECIMEN NUMBER: code = 23787) [id number] CULTURE, [id number] 00:00:00 Test Item Value Reference Range Interpretation Comments CULTURE, URINE (test SPECIMEN NUMBER: code = 20119) [id number] CULTURE, [id number] 00:00:00 Test Item Value Reference Range Interpretation Comments CULTURE, URINE (test SPECIMEN NUMBER: code = 64652) [id number] CULTURE, [id number] 00:00:00 Test Item Value Reference Range Interpretation Comments CULTURE, URINE (test SPECIMEN NUMBER: code = 78175) [id number] CULTURE, [id number] 00:00:00 Test Item Value Reference Range Interpretation Comments CULTURE, URINE (test SPECIMEN NUMBER: code = 86932) [id number] CULTURE, [id number] 00:00:00 Test Item Value Reference Range Interpretation Comments CULTURE, URINE (test SPECIMEN NUMBER: code = 04406) [id number] CULTURE, [id number] 00:00:00 Test Item Value Reference Range Interpretation Comments CULTURE, URINE (test SPECIMEN NUMBER: code = 99377) [id number] CULTURE, [id number] 00:00:00 Test Item Value Reference Range Interpretation Comments CULTURE, URINE (test SPECIMEN NUMBER: code = 17091) [id number] CULTURE, [id number] 00:00:00 Test Item Value Reference Range Interpretation Comments CULTURE, URINE (test SPECIMEN NUMBER: code = 87416) [id number] CULTURE, [id number] 00:00:00 Test Item Value Reference Range Interpretation Comments CULTURE, URINE (test SPECIMEN NUMBER: code = 70697) [id number] CULTURE, [id number] 00:00:00 Test Item Value Reference Range Interpretation Comments CULTURE, URINE (test SPECIMEN NUMBER: code = 03871) [id number] CULTURE, [id number] 00:00:00 Test Item Value Reference Range Interpretation Comments CULTURE, URINE (test SPECIMEN NUMBER: code = 40872) [id number] CULTURE, [id number] 00:00:00 Test Item Value Reference Range Interpretation Comments CULTURE, URINE (test SPECIMEN NUMBER: code = 44779) [id number] CULTURE, [id number] 00:00:00 Test Item Value Reference Range Interpretation Comments CULTURE, URINE (test SPECIMEN NUMBER: code = 95126) [id number] CULTURE, [id number] 00:00:00 Test Item Value Reference Range Interpretation Comments CULTURE, URINE (test SPECIMEN NUMBER: code = 90865) [id number] CULTURE, [id number] 00:00:00 Test Item Value Reference Range Interpretation Comments CULTURE, URINE (test SPECIMEN NUMBER: code = 53858) [id number] CULTURE, [id number] 00:00:00 Test Item Value Reference Range Interpretation Comments CULTURE, URINE (test SPECIMEN NUMBER: code = 63270) [id number] CULTURE, [id number] 00:00:00 Test Item Value Reference Range Interpretation Comments CULTURE, URINE (test SPECIMEN NUMBER: code = 13326) [id number] CULTURE, [id number] 00:00:00 Test Item Value Reference Range Interpretation Comments CULTURE, URINE (test SPECIMEN NUMBER: code = 28426) [id number] CULTURE, [id number] 00:00:00 Test Item Value Reference Range Interpretation Comments CULTURE, URINE (test SPECIMEN NUMBER: code = 27355) [id number] CULTURE, [id number] 00:00:00 Test Item Value Reference Range Interpretation Comments CULTURE, URINE (test SPECIMEN NUMBER: code = 01677) [id number] LIPID [id number] 00:00:00 Test Item Value Reference Range Interpretation Comments CHOLESTEROL (test code = 2210) 354 MG/DL TRIGLYCERIDES (test code = 2232) 2608 MG/DL HDL CHOLESTEROL (test code = 19 MG/DL 2220) CALC LDL CHOL (test code = 2237) NOTE MG/DL RISK RATIO LDL/HDL (test code = (NOTE) RATIO 2238) LIPID [id number] 00:00:00 Test Item Value Reference Range Interpretation Comments CHOLESTEROL (test code = 2210) 354 MG/DL TRIGLYCERIDES (test code = 2232) 2608 MG/DL HDL CHOLESTEROL (test code = 19 MG/DL 2220) CALC LDL CHOL (test code = 2237) NOTE MG/DL RISK RATIO LDL/HDL (test code = (NOTE) RATIO 2238) HEMOGLOBIN [id number] 00:00:00 Test Item Value Reference Range Interpretation Comments HEMOGLOBIN A1c (test code = 31555) 11.5 % HEMOGLOBIN [id number] 00:00:00 Test Item Value Reference Range Interpretation Comments HEMOGLOBIN A1c (test code = 99657) 11.5 % HEMOGLOBIN [id number] 00:00:00 Test Item Value Reference Range Interpretation Comments HEMOGLOBIN A1c (test code = 84645) 11.5 % MICROALBUMIN/CREATININE, RANDOM AND [id number] 00:00:00 Test Item Value Reference Range Interpretation Comments CREATININE, URINE, CONC. (test 92.4 MG/DL code = 2072) ALBUMIN, URINE, RANDOM (test code 158.5 MG/DL = 18767) CALC ALBUMIN/CREAT, RND (test 1715 MG/G code = 00726) MICROALBUMIN/CREATININE, RANDOM AND [id number] 00:00:00 Test Item Value Reference Range Interpretation Comments CREATININE, URINE, CONC. (test 92.4 MG/DL code = 2072) ALBUMIN, URINE, RANDOM (test code 158.5 MG/DL = 57005) CALC ALBUMIN/CREAT, RND (test 1715 MG/G code = 30719) LIPID [id number] 00:00:00 Test Item Value Reference Range Interpretation Comments CHOLESTEROL (test code = 2210) 354 MG/DL TRIGLYCERIDES (test code = 2232) 2608 MG/DL HDL CHOLESTEROL (test code = 19 MG/DL 2220) CALC LDL CHOL (test code = 2237) NOTE MG/DL RISK RATIO LDL/HDL (test code = (NOTE) RATIO 2238) LIPID [id number] 00:00:00 Test Item Value Reference Range Interpretation Comments CHOLESTEROL (test code = 2210) 354 MG/DL TRIGLYCERIDES (test code = 2232) 2608 MG/DL HDL CHOLESTEROL (test code = 19 MG/DL 2220) CALC LDL CHOL (test code = 2237) NOTE MG/DL RISK RATIO LDL/HDL (test code = (NOTE) RATIO 2238) HEMOGLOBIN [id number] 00:00:00 Test Item Value Reference Range Interpretation Comments HEMOGLOBIN A1c (test code = 98695) 11.5 % HEMOGLOBIN [id number] 00:00:00 Test Item Value Reference Range Interpretation Comments HEMOGLOBIN A1c (test code = 87914) 11.5 % HEMOGLOBIN [id number] 00:00:00 Test Item Value Reference Range Interpretation Comments HEMOGLOBIN A1c (test code = 65318) 11.5 % MICROALBUMIN/CREATININE, RANDOM AND [id number] 00:00:00 Test Item Value Reference Range Interpretation Comments CREATININE, URINE, CONC. (test 92.4 MG/DL code = 2072) ALBUMIN, URINE, RANDOM (test code 158.5 MG/DL = 22402) CALC ALBUMIN/CREAT, RND (test 1715 MG/G code = 29433) MICROALBUMIN/CREATININE, RANDOM AND [id number] 00:00:00 Test Item Value Reference Range Interpretation Comments CREATININE, URINE, CONC. (test 92.4 MG/DL code = 2072) ALBUMIN, URINE, RANDOM (test code 158.5 MG/DL = 82878) CALC ALBUMIN/CREAT, RND (test 1715 MG/G code = 40619) LIPID [id number] 00:00:00 Test Item Value Reference Range Interpretation Comments CHOLESTEROL (test code = 2210) 354 MG/DL TRIGLYCERIDES (test code = 2232) 2608 MG/DL HDL CHOLESTEROL (test code = 19 MG/DL 2220) CALC LDL CHOL (test code = 2237) NOTE MG/DL RISK RATIO LDL/HDL (test code = (NOTE) RATIO 2238) LIPID [id number] 00:00:00 Test Item Value Reference Range Interpretation Comments CHOLESTEROL (test code = 2210) 354 MG/DL TRIGLYCERIDES (test code = 2232) 2608 MG/DL HDL CHOLESTEROL (test code = 19 MG/DL 2220) CALC LDL CHOL (test code = 2237) NOTE MG/DL RISK RATIO LDL/HDL (test code = (NOTE) RATIO 2238) HEMOGLOBIN [id number] 00:00:00 Test Item Value Reference Range Interpretation Comments HEMOGLOBIN A1c (test code = 29802) 11.5 % HEMOGLOBIN [id number] 00:00:00 Test Item Value Reference Range Interpretation Comments HEMOGLOBIN A1c (test code = 11688) 11.5 % HEMOGLOBIN [id number] 00:00:00 Test Item Value Reference Range Interpretation Comments HEMOGLOBIN A1c (test code = 61647) 11.5 % MICROALBUMIN/CREATININE, RANDOM AND [id number] 00:00:00 Test Item Value Reference Range Interpretation Comments CREATININE, URINE, CONC. (test 92.4 MG/DL code = 2072) ALBUMIN, URINE, RANDOM (test code 158.5 MG/DL = 73540) CALC ALBUMIN/CREAT, RND (test 1715 MG/G code = 35090) MICROALBUMIN/CREATININE, RANDOM AND [id number] 00:00:00 Test Item Value Reference Range Interpretation Comments CREATININE, URINE, CONC. (test 92.4 MG/DL code = 2072) ALBUMIN, URINE, RANDOM (test code 158.5 MG/DL = 40241) CALC ALBUMIN/CREAT, RND (test 1715 MG/G code = 89966) LIPID [id number] 00:00:00 Test Item Value Reference Range Interpretation Comments CHOLESTEROL (test code = 2210) 354 MG/DL TRIGLYCERIDES (test code = 2232) 2608 MG/DL HDL CHOLESTEROL (test code = 19 MG/DL 2220) CALC LDL CHOL (test code = 2237) NOTE MG/DL RISK RATIO LDL/HDL (test code = (NOTE) RATIO 2238) LIPID [id number] 00:00:00 Test Item Value Reference Range Interpretation Comments CHOLESTEROL (test code = 2210) 354 MG/DL TRIGLYCERIDES (test code = 2232) 2608 MG/DL HDL CHOLESTEROL (test code = 19 MG/DL 2220) CALC LDL CHOL (test code = 2237) NOTE MG/DL RISK RATIO LDL/HDL (test code = (NOTE) RATIO 2238) HEMOGLOBIN [id number] 00:00:00 Test Item Value Reference Range Interpretation Comments HEMOGLOBIN A1c (test code = 12185) 11.5 % HEMOGLOBIN [id number] 00:00:00 Test Item Value Reference Range Interpretation Comments HEMOGLOBIN A1c (test code = 62946) 11.5 % HEMOGLOBIN [id number] 00:00:00 Test Item Value Reference Range Interpretation Comments HEMOGLOBIN A1c (test code = 79179) 11.5 % MICROALBUMIN/CREATININE, RANDOM AND [id number] 00:00:00 Test Item Value Reference Range Interpretation Comments CREATININE, URINE, CONC. (test 92.4 MG/DL code = 2072) ALBUMIN, URINE, RANDOM (test code 158.5 MG/DL = 43087) CALC ALBUMIN/CREAT, RND (test 1715 MG/G code = 69079) MICROALBUMIN/CREATININE, RANDOM AND [id number] 00:00:00 Test Item Value Reference Range Interpretation Comments CREATININE, URINE, CONC. (test 92.4 MG/DL code = 2072) ALBUMIN, URINE, RANDOM (test code 158.5 MG/DL = 91522) CALC ALBUMIN/CREAT, RND (test 1715 MG/G code = 79287) LIPID [id number] 00:00:00 Test Item Value Reference Range Interpretation Comments CHOLESTEROL (test code = 2210) 354 MG/DL TRIGLYCERIDES (test code = 2232) 2608 MG/DL HDL CHOLESTEROL (test code = 19 MG/DL 2220) CALC LDL CHOL (test code = 2237) NOTE MG/DL RISK RATIO LDL/HDL (test code = (NOTE) RATIO 2238) LIPID [id number] 00:00:00 Test Item Value Reference Range Interpretation Comments CHOLESTEROL (test code = 2210) 354 MG/DL TRIGLYCERIDES (test code = 2232) 2608 MG/DL HDL CHOLESTEROL (test code = 19 MG/DL 2220) CALC LDL CHOL (test code = 2237) NOTE MG/DL RISK RATIO LDL/HDL (test code = (NOTE) RATIO 2238) HEMOGLOBIN [id number] 00:00:00 Test Item Value Reference Range Interpretation Comments HEMOGLOBIN A1c (test code = 11134) 11.5 % HEMOGLOBIN [id number] 00:00:00 Test Item Value Reference Range Interpretation Comments HEMOGLOBIN A1c (test code = 91033) 11.5 % HEMOGLOBIN [id number] 00:00:00 Test Item Value Reference Range Interpretation Comments HEMOGLOBIN A1c (test code = 07394) 11.5 % MICROALBUMIN/CREATININE, RANDOM AND [id number] 00:00:00 Test Item Value Reference Range Interpretation Comments CREATININE, URINE, CONC. (test 92.4 MG/DL code = 2072) ALBUMIN, URINE, RANDOM (test code 158.5 MG/DL = 95004) CALC ALBUMIN/CREAT, RND (test 1715 MG/G code = 11492) MICROALBUMIN/CREATININE, RANDOM AND [id number] 00:00:00 Test Item Value Reference Range Interpretation Comments CREATININE, URINE, CONC. (test 92.4 MG/DL code = 2072) ALBUMIN, URINE, RANDOM (test code 158.5 MG/DL = 13415) CALC ALBUMIN/CREAT, RND (test 1715 MG/G code = 16237) LIPID [id number] 00:00:00 Test Item Value Reference Range Interpretation Comments CHOLESTEROL (test code = 2210) 354 MG/DL TRIGLYCERIDES (test code = 2232) 2608 MG/DL HDL CHOLESTEROL (test code = 19 MG/DL 2220) CALC LDL CHOL (test code = 2237) NOTE MG/DL RISK RATIO LDL/HDL (test code = (NOTE) RATIO 2238) LIPID [id number] 00:00:00 Test Item Value Reference Range Interpretation Comments CHOLESTEROL (test code = 2210) 354 MG/DL TRIGLYCERIDES (test code = 2232) 2608 MG/DL HDL CHOLESTEROL (test code = 19 MG/DL 2220) CALC LDL CHOL (test code = 2237) NOTE MG/DL RISK RATIO LDL/HDL (test code = (NOTE) RATIO 2238) HEMOGLOBIN [id number] 00:00:00 Test Item Value Reference Range Interpretation Comments HEMOGLOBIN A1c (test code = 07421) 11.5 % HEMOGLOBIN [id number] 00:00:00 Test Item Value Reference Range Interpretation Comments HEMOGLOBIN A1c (test code = 42851) 11.5 % HEMOGLOBIN [id number] 00:00:00 Test Item Value Reference Range Interpretation Comments HEMOGLOBIN A1c (test code = 07378) 11.5 % MICROALBUMIN/CREATININE, RANDOM AND [id number] 00:00:00 Test Item Value Reference Range Interpretation Comments CREATININE, URINE, CONC. (test 92.4 MG/DL code = 2072) ALBUMIN, URINE, RANDOM (test code 158.5 MG/DL = 36186) CALC ALBUMIN/CREAT, RND (test 1715 MG/G code = 21437) MICROALBUMIN/CREATININE, RANDOM AND [id number] 00:00:00 Test Item Value Reference Range Interpretation Comments CREATININE, URINE, CONC. (test 92.4 MG/DL code = 2072) ALBUMIN, URINE, RANDOM (test code 158.5 MG/DL = 83179) CALC ALBUMIN/CREAT, RND (test 1715 MG/G code = 05230) LIPID [id number] 00:00:00 Test Item Value Reference Range Interpretation Comments CHOLESTEROL (test code = 2210) 354 MG/DL TRIGLYCERIDES (test code = 2232) 2608 MG/DL HDL CHOLESTEROL (test code = 19 MG/DL 2220) CALC LDL CHOL (test code = 2237) NOTE MG/DL RISK RATIO LDL/HDL (test code = (NOTE) RATIO 2238) LIPID [id number] 00:00:00 Test Item Value Reference Range Interpretation Comments CHOLESTEROL (test code = 2210) 354 MG/DL TRIGLYCERIDES (test code = 2232) 2608 MG/DL HDL CHOLESTEROL (test code = 19 MG/DL 2220) CALC LDL CHOL (test code = 2237) NOTE MG/DL RISK RATIO LDL/HDL (test code = (NOTE) RATIO 2238) HEMOGLOBIN [id number] 00:00:00 Test Item Value Reference Range Interpretation Comments HEMOGLOBIN A1c (test code = 63791) 11.5 % HEMOGLOBIN [id number] 00:00:00 Test Item Value Reference Range Interpretation Comments HEMOGLOBIN A1c (test code = 11772) 11.5 % HEMOGLOBIN [id number] 00:00:00 Test Item Value Reference Range Interpretation Comments HEMOGLOBIN A1c (test code = 28278) 11.5 % MICROALBUMIN/CREATININE, RANDOM AND [id number] 00:00:00 Test Item Value Reference Range Interpretation Comments CREATININE, URINE, CONC. (test 92.4 MG/DL code = 2072) ALBUMIN, URINE, RANDOM (test code 158.5 MG/DL = 64614) CALC ALBUMIN/CREAT, RND (test 1715 MG/G code = 29957) MICROALBUMIN/CREATININE, RANDOM AND [id number] 00:00:00 Test Item Value Reference Range Interpretation Comments CREATININE, URINE, CONC. (test 92.4 MG/DL code = 2072) ALBUMIN, URINE, RANDOM (test code 158.5 MG/DL = 76487) CALC ALBUMIN/CREAT, RND (test 1715 MG/G code = 81441) LIPID [id number] 00:00:00 Test Item Value Reference Range Interpretation Comments CHOLESTEROL (test code = 2210) 354 MG/DL TRIGLYCERIDES (test code = 2232) 2608 MG/DL HDL CHOLESTEROL (test code = 19 MG/DL 2220) CALC LDL CHOL (test code = 2237) NOTE MG/DL RISK RATIO LDL/HDL (test code = (NOTE) RATIO 2238) HEMOGLOBIN [id number] 00:00:00 Test Item Value Reference Range Interpretation Comments HEMOGLOBIN A1c (test code = 06908) 11.5 % HEMOGLOBIN [id number] 00:00:00 Test Item Value Reference Range Interpretation Comments HEMOGLOBIN A1c (test code = 88474) 11.5 % MICROALBUMIN/CREATININE, RANDOM AND [id number] 00:00:00 Test Item Value Reference Range Interpretation Comments CREATININE, URINE, CONC. (test 92.4 MG/DL code = 2072) ALBUMIN, URINE, RANDOM (test code 158.5 MG/DL = 16123) CALC ALBUMIN/CREAT, RND (test 1715 MG/G code = 38432) LIPID [id number] 00:00:00 Test Item Value Reference Range Interpretation Comments CHOLESTEROL (test code = 2210) 354 MG/DL TRIGLYCERIDES (test code = 2232) 2608 MG/DL HDL CHOLESTEROL (test code = 19 MG/DL 2220) CALC LDL CHOL (test code = 2237) NOTE MG/DL RISK RATIO LDL/HDL (test code = (NOTE) RATIO 2238) LIPID [id number] 00:00:00 Test Item Value Reference Range Interpretation Comments CHOLESTEROL (test code = 2210) 354 MG/DL TRIGLYCERIDES (test code = 2232) 2608 MG/DL HDL CHOLESTEROL (test code = 19 MG/DL 2220) CALC LDL CHOL (test code = 2237) NOTE MG/DL RISK RATIO LDL/HDL (test code = (NOTE) RATIO 2238) HEMOGLOBIN [id number] 00:00:00 Test Item Value Reference Range Interpretation Comments HEMOGLOBIN A1c (test code = 39205) 11.5 % HEMOGLOBIN [id number] 00:00:00 Test Item Value Reference Range Interpretation Comments HEMOGLOBIN A1c (test code = 33573) 11.5 % HEMOGLOBIN [id number] 00:00:00 Test Item Value Reference Range Interpretation Comments HEMOGLOBIN A1c (test code = 88295) 11.5 % MICROALBUMIN/CREATININE, RANDOM AND [id number] 00:00:00 Test Item Value Reference Range Interpretation Comments CREATININE, URINE, CONC. (test 92.4 MG/DL code = 2072) ALBUMIN, URINE, RANDOM (test code 158.5 MG/DL = 25845) CALC ALBUMIN/CREAT, RND (test 1715 MG/G code = 03726) MICROALBUMIN/CREATININE, RANDOM AND [id number] 00:00:00 Test Item Value Reference Range Interpretation Comments CREATININE, URINE, CONC. (test 92.4 MG/DL code = 2072) ALBUMIN, URINE, RANDOM (test code 158.5 MG/DL = 77602) CALC ALBUMIN/CREAT, RND (test 1715 MG/G code = 85915) LIPID [id number] 00:00:00 Test Item Value Reference Range Interpretation Comments CHOLESTEROL (test code = 2210) 354 MG/DL TRIGLYCERIDES (test code = 2232) 2608 MG/DL HDL CHOLESTEROL (test code = 19 MG/DL 2220) CALC LDL CHOL (test code = 2237) NOTE MG/DL RISK RATIO LDL/HDL (test code = (NOTE) RATIO 2238) LIPID [id number] 00:00:00 Test Item Value Reference Range Interpretation Comments CHOLESTEROL (test code = 2210) 354 MG/DL TRIGLYCERIDES (test code = 2232) 2608 MG/DL HDL CHOLESTEROL (test code = 19 MG/DL 2220) CALC LDL CHOL (test code = 2237) NOTE MG/DL RISK RATIO LDL/HDL (test code = (NOTE) RATIO 2238) HEMOGLOBIN [id number] 00:00:00 Test Item Value Reference Range Interpretation Comments HEMOGLOBIN A1c (test code = 59164) 11.5 % HEMOGLOBIN [id number] 00:00:00 Test Item Value Reference Range Interpretation Comments HEMOGLOBIN A1c (test code = 91779) 11.5 % HEMOGLOBIN [id number] 00:00:00 Test Item Value Reference Range Interpretation Comments HEMOGLOBIN A1c (test code = 17534) 11.5 % MICROALBUMIN/CREATININE, RANDOM AND [id number] 00:00:00 Test Item Value Reference Range Interpretation Comments CREATININE, URINE, CONC. (test 92.4 MG/DL code = 2072) ALBUMIN, URINE, RANDOM (test code 158.5 MG/DL = 33907) CALC ALBUMIN/CREAT, RND (test 1715 MG/G code = 54855) MICROALBUMIN/CREATININE, RANDOM AND [id number] 00:00:00 Test Item Value Reference Range Interpretation Comments CREATININE, URINE, CONC. (test 92.4 MG/DL code = 2072) ALBUMIN, URINE, RANDOM (test code 158.5 MG/DL = 39232) CALC ALBUMIN/CREAT, RND (test 1715 MG/G code = 88776) LIPID [id number] 00:00:00 Test Item Value Reference Range Interpretation Comments CHOLESTEROL (test code = 2210) 354 MG/DL TRIGLYCERIDES (test code = 2232) 2608 MG/DL HDL CHOLESTEROL (test code = 19 MG/DL 2220) CALC LDL CHOL (test code = 2237) NOTE MG/DL RISK RATIO LDL/HDL (test code = (NOTE) RATIO 2238) LIPID [id number] 00:00:00 Test Item Value Reference Range Interpretation Comments CHOLESTEROL (test code = 2210) 354 MG/DL TRIGLYCERIDES (test code = 2232) 2608 MG/DL HDL CHOLESTEROL (test code = 19 MG/DL 2220) CALC LDL CHOL (test code = 2237) NOTE MG/DL RISK RATIO LDL/HDL (test code = (NOTE) RATIO 2238) HEMOGLOBIN [id number] 00:00:00 Test Item Value Reference Range Interpretation Comments HEMOGLOBIN A1c (test code = 97611) 11.5 % HEMOGLOBIN [id number] 00:00:00 Test Item Value Reference Range Interpretation Comments HEMOGLOBIN A1c (test code = 30456) 11.5 % HEMOGLOBIN [id number] 00:00:00 Test Item Value Reference Range Interpretation Comments HEMOGLOBIN A1c (test code = 18964) 11.5 % MICROALBUMIN/CREATININE, RANDOM AND [id number] 00:00:00 Test Item Value Reference Range Interpretation Comments CREATININE, URINE, CONC. (test 92.4 MG/DL code = 2072) ALBUMIN, URINE, RANDOM (test code 158.5 MG/DL = 64691) CALC ALBUMIN/CREAT, RND (test 1715 MG/G code = 64606) MICROALBUMIN/CREATININE, RANDOM AND [id number] 00:00:00 Test Item Value Reference Range Interpretation Comments CREATININE, URINE, CONC. (test 92.4 MG/DL code = 2072) ALBUMIN, URINE, RANDOM (test code 158.5 MG/DL = 62623) CALC ALBUMIN/CREAT, RND (test 1715 MG/G code = 29749) CULTURE, [id number] 00:00:00 Test Item Value Reference Range Interpretation Comments CULTURE, URINE (test SPECIMEN NUMBER: code = 57306) [id number] CULTURE, [id number] 00:00:00 Test Item Value Reference Range Interpretation Comments CULTURE, URINE (test SPECIMEN NUMBER: code = 23538) [id number] CULTURE, [id number] 00:00:00 Test Item Value Reference Range Interpretation Comments CULTURE, URINE (test SPECIMEN NUMBER: code = 43477) [id number] CULTURE, [id number] 00:00:00 Test Item Value Reference Range Interpretation Comments CULTURE, URINE (test SPECIMEN NUMBER: code = 47278) [id number] CULTURE, [id number] 00:00:00 Test Item Value Reference Range Interpretation Comments CULTURE, URINE (test SPECIMEN NUMBER: code = 91466) [id number] CULTURE, [id number] 00:00:00 Test Item Value Reference Range Interpretation Comments CULTURE, URINE (test SPECIMEN NUMBER: code = 36702) [id number] CULTURE, [id number] 00:00:00 Test Item Value Reference Range Interpretation Comments CULTURE, URINE (test SPECIMEN NUMBER: code = 92165) [id number] CULTURE, [id number] 00:00:00 Test Item Value Reference Range Interpretation Comments CULTURE, URINE (test SPECIMEN NUMBER: code = 83634) [id number] CULTURE, [id number] 00:00:00 Test Item Value Reference Range Interpretation Comments CULTURE, URINE (test SPECIMEN NUMBER: code = 20161) [id number] CULTURE, [id number] 00:00:00 Test Item Value Reference Range Interpretation Comments CULTURE, URINE (test SPECIMEN NUMBER: code = 44683) [id number] CULTURE, [id number] 00:00:00 Test Item Value Reference Range Interpretation Comments CULTURE, URINE (test SPECIMEN NUMBER: code = 15780) [id number] CULTURE, [id number] 00:00:00 Test Item Value Reference Range Interpretation Comments CULTURE, URINE (test SPECIMEN NUMBER: code = 77927) [id number] CULTURE, [id number] 00:00:00 Test Item Value Reference Range Interpretation Comments CULTURE, URINE (test SPECIMEN NUMBER: code = 89823) [id number] CULTURE, [id number] 00:00:00 Test Item Value Reference Range Interpretation Comments CULTURE, URINE (test SPECIMEN NUMBER: code = 26574) [id number] CULTURE, [id number] 00:00:00 Test Item Value Reference Range Interpretation Comments CULTURE, URINE (test SPECIMEN NUMBER: code = 17357) [id number] CULTURE, [id number] 00:00:00 Test Item Value Reference Range Interpretation Comments CULTURE, URINE (test SPECIMEN NUMBER: code = 95855) [id number] CULTURE, [id number] 00:00:00 Test Item Value Reference Range Interpretation Comments CULTURE, URINE (test SPECIMEN NUMBER: code = 48144) [id number] CULTURE, [id number] 00:00:00 Test Item Value Reference Range Interpretation Comments CULTURE, URINE (test SPECIMEN NUMBER: code = 39809) [id number] CULTURE, [id number] 00:00:00 Test Item Value Reference Range Interpretation Comments CULTURE, URINE (test SPECIMEN NUMBER: code = 78765) [id number] CULTURE, [id number] 00:00:00 Test Item Value Reference Range Interpretation Comments CULTURE, URINE (test SPECIMEN NUMBER: code = 82519) [id number] CULTURE, [id number] 00:00:00 Test Item Value Reference Range Interpretation Comments CULTURE, URINE (test SPECIMEN NUMBER: code = 94929) [id number] VAGINAL PATHOGENS DNA [id number] 00:00:00 Test Item Value Reference Range Interpretation Comments ANDIE SPECIES (test code = 13548) POSITIVE G. VAGINALIS (test code = 32818) NEGATIVE T. VAGINALIS (test code = 05000) NEGATIVE VAGINAL PATHOGENS DNA [id number] 00:00:00 Test Item Value Reference Range Interpretation Comments ANDIE SPECIES (test code = 80324) POSITIVE G. VAGINALIS (test code = 55463) NEGATIVE T. VAGINALIS (test code = 16762) NEGATIVE VAGINAL PATHOGENS DNA [id number] 00:00:00 Test Item Value Reference Range Interpretation Comments ANDIE SPECIES (test code = 94204) POSITIVE G. VAGINALIS (test code = 09708) NEGATIVE T. VAGINALIS (test code = 79713) NEGATIVE VAGINAL PATHOGENS DNA [id number] 00:00:00 Test Item Value Reference Range Interpretation Comments ANDIE SPECIES (test code = 28136) POSITIVE G. VAGINALIS (test code = 33628) NEGATIVE T. VAGINALIS (test code = 97511) NEGATIVE VAGINAL PATHOGENS DNA [id number] 00:00:00 Test Item Value Reference Range Interpretation Comments ANDIE SPECIES (test code = 73491) POSITIVE G. VAGINALIS (test code = 43160) NEGATIVE T. VAGINALIS (test code = 47871) NEGATIVE VAGINAL PATHOGENS DNA [id number] 00:00:00 Test Item Value Reference Range Interpretation Comments ANDIE SPECIES (test code = 67172) POSITIVE G. VAGINALIS (test code = 21466) NEGATIVE T. VAGINALIS (test code = 11528) NEGATIVE VAGINAL PATHOGENS DNA [id number] 00:00:00 Test Item Value Reference Range Interpretation Comments ANDIE SPECIES (test code = 72842) POSITIVE G. VAGINALIS (test code = 20092) NEGATIVE T. VAGINALIS (test code = 59987) NEGATIVE VAGINAL PATHOGENS DNA [id number] 00:00:00 Test Item Value Reference Range Interpretation Comments ANDIE SPECIES (test code = 60610) POSITIVE G. VAGINALIS (test code = 60088) NEGATIVE T. VAGINALIS (test code = 64858) NEGATIVE VAGINAL PATHOGENS DNA [id number] 00:00:00 Test Item Value Reference Range Interpretation Comments ANDIE SPECIES (test code = ) POSITIVE G. VAGINALIS (test code = 28537) NEGATIVE T. VAGINALIS (test code = 32367) NEGATIVE VAGINAL PATHOGENS DNA [id number] 00:00:00 Test Item Value Reference Range Interpretation Comments ANDIE SPECIES (test code = ) POSITIVE G. VAGINALIS (test code = 27802) NEGATIVE T. VAGINALIS (test code = 19976) NEGATIVE VAGINAL PATHOGENS DNA [id number] 00:00:00 Test Item Value Reference Range Interpretation Comments ANDIE SPECIES (test code = 68609) POSITIVE G. VAGINALIS (test code = 18299) NEGATIVE T. VAGINALIS (test code = 95956) NEGATIVE VAGINAL PATHOGENS DNA [id number] 00:00:00 Test Item Value Reference Range Interpretation Comments ANDIE SPECIES (test code = 63484) POSITIVE G. VAGINALIS (test code = 51161) NEGATIVE T. VAGINALIS (test code = 33808) NEGATIVE VAGINAL PATHOGENS DNA [id number] 00:00:00 Test Item Value Reference Range Interpretation Comments ANDIE SPECIES (test code = 29678) POSITIVE G. VAGINALIS (test code = 12325) NEGATIVE T. VAGINALIS (test code = 18976) NEGATIVE VAGINAL PATHOGENS DNA [id number] 00:00:00 Test Item Value Reference Range Interpretation Comments ANDIE SPECIES (test code = 51434) POSITIVE G. VAGINALIS (test code = 20373) NEGATIVE T. VAGINALIS (test code = 89855) NEGATIVE VAGINAL PATHOGENS DNA [id number] 00:00:00 Test Item Value Reference Range Interpretation Comments ANDIE SPECIES (test code = 06338) POSITIVE G. VAGINALIS (test code = 57426) NEGATIVE T. VAGINALIS (test code = 52048) NEGATIVE VAGINAL PATHOGENS DNA [id number] 00:00:00 Test Item Value Reference Range Interpretation Comments ANDIE SPECIES (test code = 90201) POSITIVE G. VAGINALIS (test code = 32677) NEGATIVE T. VAGINALIS (test code = 84156) NEGATIVE VAGINAL PATHOGENS DNA [id number] 00:00:00 Test Item Value Reference Range Interpretation Comments ANDIE SPECIES (test code = 86264) POSITIVE G. VAGINALIS (test code = 24898) NEGATIVE T. VAGINALIS (test code = 30821) NEGATIVE VAGINAL PATHOGENS DNA [id number] 00:00:00 Test Item Value Reference Range Interpretation Comments ANDIE SPECIES (test code = 92305) POSITIVE G. VAGINALIS (test code = 02021) NEGATIVE T. VAGINALIS (test code = 29084) NEGATIVE VAGINAL PATHOGENS DNA [id number] 00:00:00 Test Item Value Reference Range Interpretation Comments ANDIE SPECIES (test code = 14918) POSITIVE G. VAGINALIS (test code = 61899) NEGATIVE T. VAGINALIS (test code = 35141) NEGATIVE VAGINAL PATHOGENS DNA [id number] 00:00:00 Test Item Value Reference Range Interpretation Comments ANDIE SPECIES (test code = 92353) POSITIVE G. VAGINALIS (test code = 32257) NEGATIVE T. VAGINALIS (test code = 25353) NEGATIVE VAGINAL PATHOGENS DNA [id number] 00:00:00 Test Item Value Reference Range Interpretation Comments ANDIE SPECIES (test code = 89516) POSITIVE G. VAGINALIS (test code = 74349) NEGATIVE T. VAGINALIS (test code = 37169) NEGATIVE VAGINAL PATHOGENS DNA [id number] 00:00:00 Test Item Value Reference Range Interpretation Comments ANDIE SPECIES (test code = 02483) NEGATIVE G. VAGINALIS (test code = 41717) NEGATIVE T. VAGINALIS (test code = 50372) NEGATIVE VAGINAL PATHOGENS DNA [id number] 00:00:00 Test Item Value Reference Range Interpretation Comments ANDIE SPECIES (test code = 76356) NEGATIVE G. VAGINALIS (test code = 87686) NEGATIVE T. VAGINALIS (test code = 12801) NEGATIVE VAGINAL PATHOGENS DNA [id number] 00:00:00 Test Item Value Reference Range Interpretation Comments ANDIE SPECIES (test code = 30158) NEGATIVE G. VAGINALIS (test code = 20082) NEGATIVE T. VAGINALIS (test code = 32442) NEGATIVE VAGINAL PATHOGENS DNA [id number] 00:00:00 Test Item Value Reference Range Interpretation Comments ANDIE SPECIES (test code = 42627) NEGATIVE G. VAGINALIS (test code = 29151) NEGATIVE T. VAGINALIS (test code = 60806) NEGATIVE VAGINAL PATHOGENS DNA [id number] 00:00:00 Test Item Value Reference Range Interpretation Comments ANDIE SPECIES (test code = 98701) NEGATIVE G. VAGINALIS (test code = 77904) NEGATIVE T. VAGINALIS (test code = 58702) NEGATIVE VAGINAL PATHOGENS DNA [id number] 00:00:00 Test Item Value Reference Range Interpretation Comments ANDIE SPECIES (test code = 02536) NEGATIVE G. VAGINALIS (test code = 19717) NEGATIVE T. VAGINALIS (test code = 99709) NEGATIVE VAGINAL PATHOGENS DNA [id number] 00:00:00 Test Item Value Reference Range Interpretation Comments ANDIE SPECIES (test code = 48535) NEGATIVE G. VAGINALIS (test code = 57102) NEGATIVE T. VAGINALIS (test code = 10317) NEGATIVE VAGINAL PATHOGENS DNA [id number] 00:00:00 Test Item Value Reference Range Interpretation Comments ANDIE SPECIES (test code = 73224) NEGATIVE G. VAGINALIS (test code = 29775) NEGATIVE T. VAGINALIS (test code = 96999) NEGATIVE VAGINAL PATHOGENS DNA [id number] 00:00:00 Test Item Value Reference Range Interpretation Comments ANDIE SPECIES (test code = 12030) NEGATIVE G. VAGINALIS (test code = 44049) NEGATIVE T. VAGINALIS (test code = 74027) NEGATIVE VAGINAL PATHOGENS DNA [id number] 00:00:00 Test Item Value Reference Range Interpretation Comments ANDIE SPECIES (test code = 92971) NEGATIVE G. VAGINALIS (test code = 67572) NEGATIVE T. VAGINALIS (test code = 95002) NEGATIVE VAGINAL PATHOGENS DNA [id number] 00:00:00 Test Item Value Reference Range Interpretation Comments ANDIE SPECIES (test code = 86374) NEGATIVE G. VAGINALIS (test code = 45599) NEGATIVE T. VAGINALIS (test code = 75869) NEGATIVE VAGINAL PATHOGENS DNA [id number] 00:00:00 Test Item Value Reference Range Interpretation Comments ANDIE SPECIES (test code = 18812) NEGATIVE G. VAGINALIS (test code = 86908) NEGATIVE T. VAGINALIS (test code = 82225) NEGATIVE VAGINAL PATHOGENS DNA [id number] 00:00:00 Test Item Value Reference Range Interpretation Comments ANDIE SPECIES (test code = 47130) NEGATIVE G. VAGINALIS (test code = 47640) NEGATIVE T. VAGINALIS (test code = 47144) NEGATIVE VAGINAL PATHOGENS DNA [id number] 00:00:00 Test Item Value Reference Range Interpretation Comments ANDIE SPECIES (test code = 17486) NEGATIVE G. VAGINALIS (test code = 77891) NEGATIVE T. VAGINALIS (test code = 66475) NEGATIVE VAGINAL PATHOGENS DNA [id number] 00:00:00 Test Item Value Reference Range Interpretation Comments ANDIE SPECIES (test code = 24269) NEGATIVE G. VAGINALIS (test code = 91822) NEGATIVE T. VAGINALIS (test code = 14431) NEGATIVE VAGINAL PATHOGENS DNA [id number] 00:00:00 Test Item Value Reference Range Interpretation Comments ANDIE SPECIES (test code = 30337) NEGATIVE G. VAGINALIS (test code = 66425) NEGATIVE T. VAGINALIS (test code = 41891) NEGATIVE VAGINAL PATHOGENS DNA [id number] 00:00:00 Test Item Value Reference Range Interpretation Comments ANDIE SPECIES (test code = 23108) NEGATIVE G. VAGINALIS (test code = 94571) NEGATIVE T. VAGINALIS (test code = 40712) NEGATIVE VAGINAL PATHOGENS DNA [id number] 00:00:00 Test Item Value Reference Range Interpretation Comments ANDIE SPECIES (test code = 48452) NEGATIVE G. VAGINALIS (test code = 49462) NEGATIVE T. VAGINALIS (test code = 39264) NEGATIVE VAGINAL PATHOGENS DNA [id number] 00:00:00 Test Item Value Reference Range Interpretation Comments ANDIE SPECIES (test code = 09488) NEGATIVE G. VAGINALIS (test code = 01067) NEGATIVE T. VAGINALIS (test code = 38715) NEGATIVE VAGINAL PATHOGENS DNA [id number] 00:00:00 Test Item Value Reference Range Interpretation Comments ANDIE SPECIES (test code = 41997) NEGATIVE G. VAGINALIS (test code = 01729) NEGATIVE T. VAGINALIS (test code = 36740) NEGATIVE VAGINAL PATHOGENS DNA [id number] 00:00:00 Test Item Value Reference Range Interpretation Comments ANDIE SPECIES (test code = 85870) NEGATIVE G. VAGINALIS (test code = 88691) NEGATIVE T. VAGINALIS (test code = 82897) NEGATIVE VAGINAL PATHOGENS DNA [id number] 00:00:00 Test Item Value Reference Range Interpretation Comments ANDIE SPECIES (test code = 10023) NEGATIVE G. VAGINALIS (test code = 38431) POSITIVE T. VAGINALIS (test code = 37250) NEGATIVE VAGINAL PATHOGENS DNA [id number] 00:00:00 Test Item Value Reference Range Interpretation Comments ANDIE SPECIES (test code = 49927) NEGATIVE G. VAGINALIS (test code = 91622) POSITIVE T. VAGINALIS (test code = 58131) NEGATIVE VAGINAL PATHOGENS DNA [id number] 00:00:00 Test Item Value Reference Range Interpretation Comments ANDIE SPECIES (test code = 32561) NEGATIVE G. VAGINALIS (test code = 17720) POSITIVE T. VAGINALIS (test code = 53972) NEGATIVE VAGINAL PATHOGENS DNA [id number] 00:00:00 Test Item Value Reference Range Interpretation Comments ANDIE SPECIES (test code = 42849) NEGATIVE G. VAGINALIS (test code = 83346) POSITIVE T. VAGINALIS (test code = 37681) NEGATIVE VAGINAL PATHOGENS DNA [id number] 00:00:00 Test Item Value Reference Range Interpretation Comments ANDIE SPECIES (test code = 65801) NEGATIVE G. VAGINALIS (test code = 96676) POSITIVE T. VAGINALIS (test code = 71998) NEGATIVE VAGINAL PATHOGENS DNA [id number] 00:00:00 Test Item Value Reference Range Interpretation Comments ANDIE SPECIES (test code = 08534) NEGATIVE G. VAGINALIS (test code = 97170) POSITIVE T. VAGINALIS (test code = 36952) NEGATIVE VAGINAL PATHOGENS DNA [id number] 00:00:00 Test Item Value Reference Range Interpretation Comments ANDIE SPECIES (test code = 05980) NEGATIVE G. VAGINALIS (test code = 39571) POSITIVE T. VAGINALIS (test code = 83044) NEGATIVE VAGINAL PATHOGENS DNA [id number] 00:00:00 Test Item Value Reference Range Interpretation Comments ANDIE SPECIES (test code = 31065) NEGATIVE G. VAGINALIS (test code = 55320) POSITIVE T. VAGINALIS (test code = 27405) NEGATIVE VAGINAL PATHOGENS DNA [id number] 00:00:00 Test Item Value Reference Range Interpretation Comments ANDIE SPECIES (test code = 92441) NEGATIVE G. VAGINALIS (test code = 71637) POSITIVE T. VAGINALIS (test code = 80656) NEGATIVE VAGINAL PATHOGENS DNA [id number] 00:00:00 Test Item Value Reference Range Interpretation Comments ANDIE SPECIES (test code = 92038) NEGATIVE G. VAGINALIS (test code = 80121) POSITIVE T. VAGINALIS (test code = 50782) NEGATIVE VAGINAL PATHOGENS DNA [id number] 00:00:00 Test Item Value Reference Range Interpretation Comments ANDIE SPECIES (test code = 84708) NEGATIVE G. VAGINALIS (test code = 97310) POSITIVE T. VAGINALIS (test code = 61561) NEGATIVE VAGINAL PATHOGENS DNA [id number] 00:00:00 Test Item Value Reference Range Interpretation Comments NADIE SPECIES (test code = 13133) NEGATIVE G. VAGINALIS (test code = 62763) POSITIVE T. VAGINALIS (test code = 59657) NEGATIVE VAGINAL PATHOGENS DNA [id number] 00:00:00 Test Item Value Reference Range Interpretation Comments ANDIE SPECIES (test code = 23662) NEGATIVE G. VAGINALIS (test code = 62494) POSITIVE T. VAGINALIS (test code = 11395) NEGATIVE VAGINAL PATHOGENS DNA [id number] 00:00:00 Test Item Value Reference Range Interpretation Comments ANDIE SPECIES (test code = 40951) NEGATIVE G. VAGINALIS (test code = 84673) POSITIVE T. VAGINALIS (test code = 07794) NEGATIVE VAGINAL PATHOGENS DNA [id number] 00:00:00 Test Item Value Reference Range Interpretation Comments ANDIE SPECIES (test code = 71286) NEGATIVE G. VAGINALIS (test code = 82133) POSITIVE T. VAGINALIS (test code = 22506) NEGATIVE VAGINAL PATHOGENS DNA [id number] 00:00:00 Test Item Value Reference Range Interpretation Comments ANDIE SPECIES (test code = 89631) NEGATIVE G. VAGINALIS (test code = 41715) POSITIVE T. VAGINALIS (test code = 45662) NEGATIVE VAGINAL PATHOGENS DNA [id number] 00:00:00 Test Item Value Reference Range Interpretation Comments ANDIE SPECIES (test code = 50012) NEGATIVE G. VAGINALIS (test code = 92060) POSITIVE T. VAGINALIS (test code = 09768) NEGATIVE VAGINAL PATHOGENS DNA [id number] 00:00:00 Test Item Value Reference Range Interpretation Comments ANDIE SPECIES (test code = 75058) NEGATIVE G. VAGINALIS (test code = 70541) POSITIVE T. VAGINALIS (test code = 86030) NEGATIVE VAGINAL PATHOGENS DNA [id number] 00:00:00 Test Item Value Reference Range Interpretation Comments ANDIE SPECIES (test code = 14822) NEGATIVE G. VAGINALIS (test code = 34575) POSITIVE T. VAGINALIS (test code = 09034) NEGATIVE VAGINAL PATHOGENS DNA [id number] 00:00:00 Test Item Value Reference Range Interpretation Comments ANDIE SPECIES (test code = 28222) NEGATIVE G. VAGINALIS (test code = 89418) POSITIVE T. VAGINALIS (test code = 57895) NEGATIVE VAGINAL PATHOGENS DNA [id number] 00:00:00 Test Item Value Reference Range Interpretation Comments ANIDE SPECIES (test code = 28649) NEGATIVE G. VAGINALIS (test code = 93132) POSITIVE T. VAGINALIS (test code = 07354) NEGATIVE COMPREHENSIVE METABOLIC [id number] 00:00:00 Test Item Value Reference Range Interpretation Comments GLUCOSE (test code = 2217) 353 MG/DL BUN (test code = 2208) 27 MG/DL CREATININE (test code = 2214) 0.90 MG/DL eGFR AMER. (test code 92 ML/MIN/1.73 = 84747) eGFR NON- AMER. (test 79 ML/MIN/1.73 code = 86346) CALC BUN/CREAT (test code = 30 RATIO [...] code = 2219) 18 U/L COMPREHENSIVE METABOLIC [id number] 00:00:00 Test Item Value Reference Range Interpretation Comments GLUCOSE (test code = 2217) 353 MG/DL BUN (test code = 2208) 27 MG/DL CREATININE (test code = 2214) 0.90 MG/DL eGFR AMER. (test code 92 ML/MIN/1.73 = 80388) eGFR NON- AMER. (test 79 ML/MIN/1.73 code = 49770) CALC BUN/CREAT (test code = 30 RATIO [...] (test code = 2219) 18 U/L LIPID [id number] 00:00:00 Test Item Value Reference Range Interpretation Comments CHOLESTEROL (test code = 2210) 412 MG/DL TRIGLYCERIDES (test code = 2232) 2520 MG/DL HDL CHOLESTEROL (test code = 16 MG/DL 2220) CALC LDL CHOL (test code = 2237) NOTE MG/DL RISK RATIO LDL/HDL (test code = (NOTE) RATIO 2238) LIPID [id number] 00:00:00 Test Item Value Reference Range Interpretation Comments CHOLESTEROL (test code = 2210) 412 MG/DL TRIGLYCERIDES (test code = 2232) 2520 MG/DL HDL CHOLESTEROL (test code = 16 MG/DL 2220) CALC LDL CHOL (test code = 2237) NOTE MG/DL RISK RATIO LDL/HDL (test code = (NOTE) RATIO 2238) HEMOGLOBIN [id number] 00:00:00 Test Item Value Reference Range Interpretation Comments HEMOGLOBIN A1c (test code = 62981) 10.7 % HEMOGLOBIN [id number] 00:00:00 Test Item Value Reference Range Interpretation Comments HEMOGLOBIN A1c (test code = 59223) 10.7 % HEMOGLOBIN [id number] 00:00:00 Test Item Value Reference Range Interpretation Comments HEMOGLOBIN A1c (test code = 07349) 10.7 % [id number] 00:00:00 Test Item Value Reference Range Interpretation Comments TSH, THIRD GENERATION (test code 0.777 UIU/ML = 2821) [id number] 00:00:00 Test Item Value Reference Range Interpretation Comments TSH, THIRD GENERATION (test code 0.777 UIU/ML = 2821) [id number] 00:00:00 Test Item Value Reference Range Interpretation Comments TSH, THIRD GENERATION (test code 0.777 UIU/ML = 2821) MICROALBUMIN/CREATININE, RANDOM AND [id number] 00:00:00 Test Item Value Reference Range Interpretation Comments CREATININE, URINE, CONC. (test 127.3 MG/DL code = 2072) ALBUMIN, URINE, RANDOM (test code 65.2 MG/DL = 03244) CALC ALBUMIN/CREAT, RND (test 512 MG/G code = 68750) MICROALBUMIN/CREATININE, RANDOM AND [id number] 00:00:00 Test Item Value Reference Range Interpretation Comments CREATININE, URINE, CONC. (test 127.3 MG/DL code = 2072) ALBUMIN, URINE, RANDOM (test code 65.2 MG/DL = 98185) CALC ALBUMIN/CREAT, RND (test 512 MG/G code = 23707) COMPREHENSIVE METABOLIC [id number] 00:00:00 Test Item Value Reference Range Interpretation Comments GLUCOSE (test code = 2217) 353 MG/DL BUN (test code = 2208) 27 MG/DL CREATININE (test code = 2214) 0.90 MG/DL eGFR AMER. (test code 92 ML/MIN/1.73 = 48087) eGFR NON- AMER. (test 79 ML/MIN/1.73 code = 26496) CALC BUN/CREAT (test code = 30 RATIO [...] code = 2219) 18 U/L COMPREHENSIVE METABOLIC [id number] 00:00:00 Test Item Value Reference Range Interpretation Comments GLUCOSE (test code = 2217) 353 MG/DL BUN (test code = 2208) 27 MG/DL CREATININE (test code = 2214) 0.90 MG/DL eGFR AMER. (test code 92 ML/MIN/1.73 = 17859) eGFR NON- AMER. (test 79 ML/MIN/1.73 code = 67004) CALC BUN/CREAT (test code = 30 RATIO [...] (test code = 2219) 18 U/L LIPID [id number] 00:00:00 Test Item Value Reference Range Interpretation Comments CHOLESTEROL (test code = 2210) 412 MG/DL TRIGLYCERIDES (test code = 2232) 2520 MG/DL HDL CHOLESTEROL (test code = 16 MG/DL 2220) CALC LDL CHOL (test code = 2237) NOTE MG/DL RISK RATIO LDL/HDL (test code = (NOTE) RATIO 2238) LIPID [id number] 00:00:00 Test Item Value Reference Range Interpretation Comments CHOLESTEROL (test code = 2210) 412 MG/DL TRIGLYCERIDES (test code = 2232) 2520 MG/DL HDL CHOLESTEROL (test code = 16 MG/DL 2220) CALC LDL CHOL (test code = 2237) NOTE MG/DL RISK RATIO LDL/HDL (test code = (NOTE) RATIO 2238) HEMOGLOBIN [id number] 00:00:00 Test Item Value Reference Range Interpretation Comments HEMOGLOBIN A1c (test code = 03003) 10.7 % HEMOGLOBIN [id number] 00:00:00 Test Item Value Reference Range Interpretation Comments HEMOGLOBIN A1c (test code = 09449) 10.7 % HEMOGLOBIN [id number] 00:00:00 Test Item Value Reference Range Interpretation Comments HEMOGLOBIN A1c (test code = 44948) 10.7 % [id number] 00:00:00 Test Item Value Reference Range Interpretation Comments TSH, THIRD GENERATION (test code 0.777 UIU/ML = 2821) [id number] 00:00:00 Test Item Value Reference Range Interpretation Comments TSH, THIRD GENERATION (test code 0.777 UIU/ML = 2821) [id number] 00:00:00 Test Item Value Reference Range Interpretation Comments TSH, THIRD GENERATION (test code 0.777 UIU/ML = 2821) MICROALBUMIN/CREATININE, RANDOM AND [id number] 00:00:00 Test Item Value Reference Range Interpretation Comments CREATININE, URINE, CONC. (test 127.3 MG/DL code = 2072) ALBUMIN, URINE, RANDOM (test code 65.2 MG/DL = 53329) CALC ALBUMIN/CREAT, RND (test 512 MG/G code = 67341) MICROALBUMIN/CREATININE, RANDOM AND [id number] 00:00:00 Test Item Value Reference Range Interpretation Comments CREATININE, URINE, CONC. (test 127.3 MG/DL code = 2072) ALBUMIN, URINE, RANDOM (test code 65.2 MG/DL = 00344) CALC ALBUMIN/CREAT, RND (test 512 MG/G code = 08561) COMPREHENSIVE METABOLIC [id number] 00:00:00 Test Item Value Reference Range Interpretation Comments GLUCOSE (test code = 2217) 353 MG/DL BUN (test code = 2208) 27 MG/DL CREATININE (test code = 2214) 0.90 MG/DL eGFR AMER. (test code 92 ML/MIN/1.73 = 75499) eGFR NON- AMER. (test 79 ML/MIN/1.73 code = 56644) CALC BUN/CREAT (test code = 30 RATIO [...] code = 2219) 18 U/L COMPREHENSIVE METABOLIC [id number] 00:00:00 Test Item Value Reference Range Interpretation Comments GLUCOSE (test code = 2217) 353 MG/DL BUN (test code = 2208) 27 MG/DL CREATININE (test code = 2214) 0.90 MG/DL eGFR AMER. (test code 92 ML/MIN/1.73 = 70515) eGFR NON- AMER. (test 79 ML/MIN/1.73 code = 73293) CALC BUN/CREAT (test code = 30 RATIO [...] (test code = 2219) 18 U/L LIPID [id number] 00:00:00 Test Item Value Reference Range Interpretation Comments CHOLESTEROL (test code = 2210) 412 MG/DL TRIGLYCERIDES (test code = 2232) 2520 MG/DL HDL CHOLESTEROL (test code = 16 MG/DL 2220) CALC LDL CHOL (test code = 2237) NOTE MG/DL RISK RATIO LDL/HDL (test code = (NOTE) RATIO 2238) LIPID [id number] 00:00:00 Test Item Value Reference Range Interpretation Comments CHOLESTEROL (test code = 2210) 412 MG/DL TRIGLYCERIDES (test code = 2232) 2520 MG/DL HDL CHOLESTEROL (test code = 16 MG/DL 2220) CALC LDL CHOL (test code = 2237) NOTE MG/DL RISK RATIO LDL/HDL (test code = (NOTE) RATIO 2238) HEMOGLOBIN [id number] 00:00:00 Test Item Value Reference Range Interpretation Comments HEMOGLOBIN A1c (test code = 26344) 10.7 % HEMOGLOBIN [id number] 00:00:00 Test Item Value Reference Range Interpretation Comments HEMOGLOBIN A1c (test code = 79708) 10.7 % HEMOGLOBIN [id number] 00:00:00 Test Item Value Reference Range Interpretation Comments HEMOGLOBIN A1c (test code = 87692) 10.7 % [id number] 00:00:00 Test Item Value Reference Range Interpretation Comments TSH, THIRD GENERATION (test code 0.777 UIU/ML = 2821) [id number] 00:00:00 Test Item Value Reference Range Interpretation Comments TSH, THIRD GENERATION (test code 0.777 UIU/ML = 2821) [id number] 00:00:00 Test Item Value Reference Range Interpretation Comments TSH, THIRD GENERATION (test code 0.777 UIU/ML = 2821) MICROALBUMIN/CREATININE, RANDOM AND [id number] 00:00:00 Test Item Value Reference Range Interpretation Comments CREATININE, URINE, CONC. (test 127.3 MG/DL code = 2072) ALBUMIN, URINE, RANDOM (test code 65.2 MG/DL = 53668) CALC ALBUMIN/CREAT, RND (test 512 MG/G code = 35452) MICROALBUMIN/CREATININE, RANDOM AND [id number] 00:00:00 Test Item Value Reference Range Interpretation Comments CREATININE, URINE, CONC. (test 127.3 MG/DL code = 2072) ALBUMIN, URINE, RANDOM (test code 65.2 MG/DL = 10290) CALC ALBUMIN/CREAT, RND (test 512 MG/G code = 37389) COMPREHENSIVE METABOLIC [id number] 00:00:00 Test Item Value Reference Range Interpretation Comments GLUCOSE (test code = 2217) 353 MG/DL BUN (test code = 2208) 27 MG/DL CREATININE (test code = 2214) 0.90 MG/DL eGFR AMER. (test code 92 ML/MIN/1.73 = 81103) eGFR NON- AMER. (test 79 ML/MIN/1.73 code = 51840) CALC BUN/CREAT (test code = 30 RATIO [...] code = 2219) 18 U/L COMPREHENSIVE METABOLIC [id number] 00:00:00 Test Item Value Reference Range Interpretation Comments GLUCOSE (test code = 2217) 353 MG/DL BUN (test code = 2208) 27 MG/DL CREATININE (test code = 2214) 0.90 MG/DL eGFR AMER. (test code 92 ML/MIN/1.73 = 38322) eGFR NON- AMER. (test 79 ML/MIN/1.73 code = 84856) CALC BUN/CREAT (test code = 30 RATIO [...] (test code = 2219) 18 U/L LIPID [id number] 00:00:00 Test Item Value Reference Range Interpretation Comments CHOLESTEROL (test code = 2210) 412 MG/DL TRIGLYCERIDES (test code = 2232) 2520 MG/DL HDL CHOLESTEROL (test code = 16 MG/DL 2220) CALC LDL CHOL (test code = 2237) NOTE MG/DL RISK RATIO LDL/HDL (test code = (NOTE) RATIO 2238) LIPID [id number] 00:00:00 Test Item Value Reference Range Interpretation Comments CHOLESTEROL (test code = 2210) 412 MG/DL TRIGLYCERIDES (test code = 2232) 2520 MG/DL HDL CHOLESTEROL (test code = 16 MG/DL 2220) CALC LDL CHOL (test code = 2237) NOTE MG/DL RISK RATIO LDL/HDL (test code = (NOTE) RATIO 2238) HEMOGLOBIN [id number] 00:00:00 Test Item Value Reference Range Interpretation Comments HEMOGLOBIN A1c (test code = 44606) 10.7 % HEMOGLOBIN [id number] 00:00:00 Test Item Value Reference Range Interpretation Comments HEMOGLOBIN A1c (test code = 20661) 10.7 % HEMOGLOBIN [id number] 00:00:00 Test Item Value Reference Range Interpretation Comments HEMOGLOBIN A1c (test code = 69446) 10.7 % [id number] 00:00:00 Test Item Value Reference Range Interpretation Comments TSH, THIRD GENERATION (test code 0.777 UIU/ML = 2821) [id number] 00:00:00 Test Item Value Reference Range Interpretation Comments TSH, THIRD GENERATION (test code 0.777 UIU/ML = 2821) [id number] 00:00:00 Test Item Value Reference Range Interpretation Comments TSH, THIRD GENERATION (test code 0.777 UIU/ML = 2821) MICROALBUMIN/CREATININE, RANDOM AND [id number] 00:00:00 Test Item Value Reference Range Interpretation Comments CREATININE, URINE, CONC. (test 127.3 MG/DL code = 2072) ALBUMIN, URINE, RANDOM (test code 65.2 MG/DL = 66380) CALC ALBUMIN/CREAT, RND (test 512 MG/G code = 88940) MICROALBUMIN/CREATININE, RANDOM AND [id number] 00:00:00 Test Item Value Reference Range Interpretation Comments CREATININE, URINE, CONC. (test 127.3 MG/DL code = 2072) ALBUMIN, URINE, RANDOM (test code 65.2 MG/DL = 49239) CALC ALBUMIN/CREAT, RND (test 512 MG/G code = 11705) COMPREHENSIVE METABOLIC [id number] 00:00:00 Test Item Value Reference Range Interpretation Comments GLUCOSE (test code = 2217) 353 MG/DL BUN (test code = 2208) 27 MG/DL CREATININE (test code = 2214) 0.90 MG/DL eGFR AMER. (test code 92 ML/MIN/1.73 = 90073) eGFR NON- AMER. (test 79 ML/MIN/1.73 code = 45258) CALC BUN/CREAT (test code = 30 RATIO [...] code = 2219) 18 U/L COMPREHENSIVE METABOLIC [id number] 00:00:00 Test Item Value Reference Range Interpretation Comments GLUCOSE (test code = 2217) 353 MG/DL BUN (test code = 2208) 27 MG/DL CREATININE (test code = 2214) 0.90 MG/DL eGFR AMER. (test code 92 ML/MIN/1.73 = 02039) eGFR NON- AMER. (test 79 ML/MIN/1.73 code = 60514) CALC BUN/CREAT (test code = 30 RATIO [...] (test code = 2219) 18 U/L LIPID [id number] 00:00:00 Test Item Value Reference Range Interpretation Comments CHOLESTEROL (test code = 2210) 412 MG/DL TRIGLYCERIDES (test code = 2232) 2520 MG/DL HDL CHOLESTEROL (test code = 16 MG/DL 2220) CALC LDL CHOL (test code = 2237) NOTE MG/DL RISK RATIO LDL/HDL (test code = (NOTE) RATIO 2238) LIPID [id number] 00:00:00 Test Item Value Reference Range Interpretation Comments CHOLESTEROL (test code = 2210) 412 MG/DL TRIGLYCERIDES (test code = 2232) 2520 MG/DL HDL CHOLESTEROL (test code = 16 MG/DL 2220) CALC LDL CHOL (test code = 2237) NOTE MG/DL RISK RATIO LDL/HDL (test code = (NOTE) RATIO 2238) HEMOGLOBIN [id number] 00:00:00 Test Item Value Reference Range Interpretation Comments HEMOGLOBIN A1c (test code = 57427) 10.7 % HEMOGLOBIN [id number] 00:00:00 Test Item Value Reference Range Interpretation Comments HEMOGLOBIN A1c (test code = 57227) 10.7 % HEMOGLOBIN [id number] 00:00:00 Test Item Value Reference Range Interpretation Comments HEMOGLOBIN A1c (test code = 04806) 10.7 % [id number] 00:00:00 Test Item Value Reference Range Interpretation Comments TSH, THIRD GENERATION (test code 0.777 UIU/ML = 2821) [id number] 00:00:00 Test Item Value Reference Range Interpretation Comments TSH, THIRD GENERATION (test code 0.777 UIU/ML = 2821) [id number] 00:00:00 Test Item Value Reference Range Interpretation Comments TSH, THIRD GENERATION (test code 0.777 UIU/ML = 2821) MICROALBUMIN/CREATININE, RANDOM AND [id number] 00:00:00 Test Item Value Reference Range Interpretation Comments CREATININE, URINE, CONC. (test 127.3 MG/DL code = 2072) ALBUMIN, URINE, RANDOM (test code 65.2 MG/DL = 29320) CALC ALBUMIN/CREAT, RND (test 512 MG/G code = 26613) MICROALBUMIN/CREATININE, RANDOM AND [id number] 00:00:00 Test Item Value Reference Range Interpretation Comments CREATININE, URINE, CONC. (test 127.3 MG/DL code = 2072) ALBUMIN, URINE, RANDOM (test code 65.2 MG/DL = 48956) CALC ALBUMIN/CREAT, RND (test 512 MG/G code = 09349) COMPREHENSIVE METABOLIC [id number] 00:00:00 Test Item Value Reference Range Interpretation Comments GLUCOSE (test code = 2217) 353 MG/DL BUN (test code = 2208) 27 MG/DL CREATININE (test code = 2214) 0.90 MG/DL eGFR AMER. (test code 92 ML/MIN/1.73 = 36125) eGFR NON- AMER. (test 79 ML/MIN/1.73 code = 08596) CALC BUN/CREAT (test code = 30 RATIO [...] code = 2219) 18 U/L COMPREHENSIVE METABOLIC [id number] 00:00:00 Test Item Value Reference Range Interpretation Comments GLUCOSE (test code = 2217) 353 MG/DL BUN (test code = 2208) 27 MG/DL CREATININE (test code = 2214) 0.90 MG/DL eGFR AMER. (test code 92 ML/MIN/1.73 = 15786) eGFR NON- AMER. (test 79 ML/MIN/1.73 code = 59658) CALC BUN/CREAT (test code = 30 RATIO [...] (test code = 2219) 18 U/L LIPID [id number] 00:00:00 Test Item Value Reference Range Interpretation Comments CHOLESTEROL (test code = 2210) 412 MG/DL TRIGLYCERIDES (test code = 2232) 2520 MG/DL HDL CHOLESTEROL (test code = 16 MG/DL 2220) CALC LDL CHOL (test code = 2237) NOTE MG/DL RISK RATIO LDL/HDL (test code = (NOTE) RATIO 2238) LIPID [id number] 00:00:00 Test Item Value Reference Range Interpretation Comments CHOLESTEROL (test code = 2210) 412 MG/DL TRIGLYCERIDES (test code = 2232) 2520 MG/DL HDL CHOLESTEROL (test code = 16 MG/DL 2220) CALC LDL CHOL (test code = 2237) NOTE MG/DL RISK RATIO LDL/HDL (test code = (NOTE) RATIO 2238) HEMOGLOBIN [id number] 00:00:00 Test Item Value Reference Range Interpretation Comments HEMOGLOBIN A1c (test code = 46121) 10.7 % HEMOGLOBIN [id number] 00:00:00 Test Item Value Reference Range Interpretation Comments HEMOGLOBIN A1c (test code = 37266) 10.7 % HEMOGLOBIN [id number] 00:00:00 Test Item Value Reference Range Interpretation Comments HEMOGLOBIN A1c (test code = 50177) 10.7 % [id number] 00:00:00 Test Item Value Reference Range Interpretation Comments TSH, THIRD GENERATION (test code 0.777 UIU/ML = 2821) [id number] 00:00:00 Test Item Value Reference Range Interpretation Comments TSH, THIRD GENERATION (test code 0.777 UIU/ML = 2821) [id number] 00:00:00 Test Item Value Reference Range Interpretation Comments TSH, THIRD GENERATION (test code 0.777 UIU/ML = 2821) MICROALBUMIN/CREATININE, RANDOM AND [id number] 00:00:00 Test Item Value Reference Range Interpretation Comments CREATININE, URINE, CONC. (test 127.3 MG/DL code = 2072) ALBUMIN, URINE, RANDOM (test code 65.2 MG/DL = 20307) CALC ALBUMIN/CREAT, RND (test 512 MG/G code = 76338) MICROALBUMIN/CREATININE, RANDOM AND [id number] 00:00:00 Test Item Value Reference Range Interpretation Comments CREATININE, URINE, CONC. (test 127.3 MG/DL code = 2072) ALBUMIN, URINE, RANDOM (test code 65.2 MG/DL = 47512) CALC ALBUMIN/CREAT, RND (test 512 MG/G code = 57559) COMPREHENSIVE METABOLIC [id number] 00:00:00 Test Item Value Reference Range Interpretation Comments GLUCOSE (test code = 2217) 353 MG/DL BUN (test code = 2208) 27 MG/DL CREATININE (test code = 2214) 0.90 MG/DL eGFR AMER. (test code 92 ML/MIN/1.73 = 84306) eGFR NON- AMER. (test 79 ML/MIN/1.73 code = 39948) CALC BUN/CREAT (test code = 30 RATIO [...] code = 2219) 18 U/L COMPREHENSIVE METABOLIC [id number] 00:00:00 Test Item Value Reference Range Interpretation Comments GLUCOSE (test code = 2217) 353 MG/DL BUN (test code = 2208) 27 MG/DL CREATININE (test code = 2214) 0.90 MG/DL eGFR AMER. (test code 92 ML/MIN/1.73 = 89033) eGFR NON- AMER. (test 79 ML/MIN/1.73 code = 56309) CALC BUN/CREAT (test code = 30 RATIO [...] (test code = 2219) 18 U/L LIPID [id number] 00:00:00 Test Item Value Reference Range Interpretation Comments CHOLESTEROL (test code = 2210) 412 MG/DL TRIGLYCERIDES (test code = 2232) 2520 MG/DL HDL CHOLESTEROL (test code = 16 MG/DL 2220) CALC LDL CHOL (test code = 2237) NOTE MG/DL RISK RATIO LDL/HDL (test code = (NOTE) RATIO 2238) LIPID [id number] 00:00:00 Test Item Value Reference Range Interpretation Comments CHOLESTEROL (test code = 2210) 412 MG/DL TRIGLYCERIDES (test code = 2232) 2520 MG/DL HDL CHOLESTEROL (test code = 16 MG/DL 2220) CALC LDL CHOL (test code = 2237) NOTE MG/DL RISK RATIO LDL/HDL (test code = (NOTE) RATIO 2238) HEMOGLOBIN [id number] 00:00:00 Test Item Value Reference Range Interpretation Comments HEMOGLOBIN A1c (test code = 05239) 10.7 % HEMOGLOBIN [id number] 00:00:00 Test Item Value Reference Range Interpretation Comments HEMOGLOBIN A1c (test code = 64710) 10.7 % COMPREHENSIVE METABOLIC [id number] 00:00:00 Test Item Value Reference Range Interpretation Comments GLUCOSE (test code = 2217) 353 MG/DL BUN (test code = 2208) 27 MG/DL CREATININE (test code = 2214) 0.90 MG/DL eGFR AMER. (test code 92 ML/MIN/1.73 = 70572) eGFR NON- AMER. (test 79 ML/MIN/1.73 code = 97941) CALC BUN/CREAT (test code = 30 RATIO [...] (test code = 2219) 18 U/L HEMOGLOBIN [id number] 00:00:00 Test Item Value Reference Range Interpretation Comments HEMOGLOBIN A1c (test code = 52636) 10.7 % [id number] 00:00:00 Test Item Value Reference Range Interpretation Comments TSH, THIRD GENERATION (test code 0.777 UIU/ML = 2821) [id number] 00:00:00 Test Item Value Reference Range Interpretation Comments TSH, THIRD GENERATION (test code 0.777 UIU/ML = 2821) [id number] 00:00:00 Test Item Value Reference Range Interpretation Comments TSH, THIRD GENERATION (test code 0.777 UIU/ML = 2821) MICROALBUMIN/CREATININE, RANDOM AND [id number] 00:00:00 Test Item Value Reference Range Interpretation Comments CREATININE, URINE, CONC. (test 127.3 MG/DL code = 2072) ALBUMIN, URINE, RANDOM (test code 65.2 MG/DL = 80096) CALC ALBUMIN/CREAT, RND (test 512 MG/G code = 69241) MICROALBUMIN/CREATININE, RANDOM AND [id number] 00:00:00 Test Item Value Reference Range Interpretation Comments CREATININE, URINE, CONC. (test 127.3 MG/DL code = 2071) ALBUMIN, URINE, RANDOM (test code 65.2 MG/DL = 59026) CALC ALBUMIN/CREAT, RND (test 512 MG/G code = 39995) LIPID [id number] 00:00:00 Test Item Value Reference Range Interpretation Comments CHOLESTEROL (test code = 2210) 412 MG/DL TRIGLYCERIDES (test code = 2232) 2520 MG/DL HDL CHOLESTEROL (test code = 16 MG/DL 0) CALC LDL CHOL (test code = 2237) NOTE MG/DL RISK RATIO LDL/HDL (test code = (NOTE) RATIO 2238) HEMOGLOBIN [id number] 00:00:00 Test Item Value Reference Range Interpretation Comments HEMOGLOBIN A1c (test code = 67749) 10.7 % HEMOGLOBIN [id number] 00:00:00 Test Item Value Reference Range Interpretation Comments HEMOGLOBIN A1c (test code = 33494) 10.7 % COMPREHENSIVE METABOLIC [id number] 00:00:00 Test Item Value Reference Range Interpretation Comments GLUCOSE (test code = 2217) 353 MG/DL BUN (test code = 2208) 27 MG/DL CREATININE (test code = 2214) 0.90 MG/DL eGFR AMER. (test code 92 ML/MIN/1.73 = 43683) eGFR NON- AMER. (test 79 ML/MIN/1.73 code = 94721) CALC BUN/CREAT (test code = 30 RATIO [...] code = 2219) 18 U/L COMPREHENSIVE METABOLIC [id number] 00:00:00 Test Item Value Reference Range Interpretation Comments GLUCOSE (test code = 2217) 353 MG/DL BUN (test code = 2208) 27 MG/DL CREATININE (test code = 2214) 0.90 MG/DL eGFR AMER. (test code 92 ML/MIN/1.73 = 30844) eGFR NON- AMER. (test 79 ML/MIN/1.73 code = 60884) CALC BUN/CREAT (test code = 30 RATIO [...] ALT (test code = 2219) 18 U/L [id number] 00:00:00 Test Item Value Reference Range Interpretation Comments TSH, THIRD GENERATION (test code 0.777 UIU/ML = 2821) LIPID [id number] 00:00:00 Test Item Value Reference Range Interpretation Comments CHOLESTEROL (test code = 2210) 412 MG/DL TRIGLYCERIDES (test code = 2232) 2520 MG/DL HDL CHOLESTEROL (test code = 16 MG/DL 2220) CALC LDL CHOL (test code = 2237) NOTE MG/DL RISK RATIO LDL/HDL (test code = (NOTE) RATIO 2238) [id number] 00:00:00 Test Item Value Reference Range Interpretation Comments TSH, THIRD GENERATION (test code 0.777 UIU/ML = 2821) LIPID [id number] 00:00:00 Test Item Value Reference Range Interpretation Comments CHOLESTEROL (test code = 2210) 412 MG/DL TRIGLYCERIDES (test code = 2232) 2520 MG/DL HDL CHOLESTEROL (test code = 16 MG/DL 2220) CALC LDL CHOL (test code = 2237) NOTE MG/DL RISK RATIO LDL/HDL (test code = (NOTE) RATIO 2238) HEMOGLOBIN [id number] 00:00:00 Test Item Value Reference Range Interpretation Comments HEMOGLOBIN A1c (test code = 39157) 10.7 % HEMOGLOBIN [id number] 00:00:00 Test Item Value Reference Range Interpretation Comments HEMOGLOBIN A1c (test code = 01390) 10.7 % HEMOGLOBIN [id number] 00:00:00 Test Item Value Reference Range Interpretation Comments HEMOGLOBIN A1c (test code = 96117) 10.7 % [id number] 00:00:00 Test Item Value Reference Range Interpretation Comments TSH, THIRD GENERATION (test code 0.777 UIU/ML = 2821) [id number] 00:00:00 Test Item Value Reference Range Interpretation Comments TSH, THIRD GENERATION (test code 0.777 UIU/ML = 2821) MICROALBUMIN/CREATININE, RANDOM AND [id number] 00:00:00 Test Item Value Reference Range Interpretation Comments CREATININE, URINE, CONC. (test 127.3 MG/DL code = 2072) ALBUMIN, URINE, RANDOM (test code 65.2 MG/DL = 70048) CALC ALBUMIN/CREAT, RND (test 512 MG/G code = 48372) [id number] 00:00:00 Test Item Value Reference Range Interpretation Comments TSH, THIRD GENERATION (test code 0.777 UIU/ML = 2821) MICROALBUMIN/CREATININE, RANDOM AND [id number] 00:00:00 Test Item Value Reference Range Interpretation Comments CREATININE, URINE, CONC. (test 127.3 MG/DL code = 2072) ALBUMIN, URINE, RANDOM (test code 65.2 MG/DL = 71722) CALC ALBUMIN/CREAT, RND (test 512 MG/G code = 90388) MICROALBUMIN/CREATININE, RANDOM AND [id number] 00:00:00 Test Item Value Reference Range Interpretation Comments CREATININE, URINE, CONC. (test 127.3 MG/DL code = 2072) ALBUMIN, URINE, RANDOM (test code 65.2 MG/DL = 02235) CALC ALBUMIN/CREAT, RND (test 512 MG/G code = 30567) COMPREHENSIVE METABOLIC [id number] 00:00:00 Test Item Value Reference Range Interpretation Comments GLUCOSE (test code = 2217) 353 MG/DL BUN (test code = 2208) 27 MG/DL CREATININE (test code = 2214) 0.90 MG/DL eGFR AMER. (test code 92 ML/MIN/1.73 = 21377) eGFR NON- AMER. (test 79 ML/MIN/1.73 code = 69602) CALC BUN/CREAT (test code = 30 RATIO [...] code = 2219) 18 U/L COMPREHENSIVE METABOLIC [id number] 00:00:00 Test Item Value Reference Range Interpretation Comments GLUCOSE (test code = 2217) 353 MG/DL BUN (test code = 2208) 27 MG/DL CREATININE (test code = 2214) 0.90 MG/DL eGFR AMER. (test code 92 ML/MIN/1.73 = 93788) eGFR NON- AMER. (test 79 ML/MIN/1.73 code = 23049) CALC BUN/CREAT (test code = 30 RATIO [...] (test code = 2219) 18 U/L LIPID [id number] 00:00:00 Test Item Value Reference Range Interpretation Comments CHOLESTEROL (test code = 2210) 412 MG/DL TRIGLYCERIDES (test code = 2232) 2520 MG/DL HDL CHOLESTEROL (test code = 16 MG/DL 2220) CALC LDL CHOL (test code = 2237) NOTE MG/DL RISK RATIO LDL/HDL (test code = (NOTE) RATIO 2238) LIPID [id number] 00:00:00 Test Item Value Reference Range Interpretation Comments CHOLESTEROL (test code = 2210) 412 MG/DL TRIGLYCERIDES (test code = 2232) 2520 MG/DL HDL CHOLESTEROL (test code = 16 MG/DL 2220) CALC LDL CHOL (test code = 2237) NOTE MG/DL RISK RATIO LDL/HDL (test code = (NOTE) RATIO 2238) HEMOGLOBIN [id number] 00:00:00 Test Item Value Reference Range Interpretation Comments HEMOGLOBIN A1c (test code = 63844) 10.7 % HEMOGLOBIN [id number] 00:00:00 Test Item Value Reference Range Interpretation Comments HEMOGLOBIN A1c (test code = 74503) 10.7 % HEMOGLOBIN [id number] 00:00:00 Test Item Value Reference Range Interpretation Comments HEMOGLOBIN A1c (test code = 86306) 10.7 % [id number] 00:00:00 Test Item Value Reference Range Interpretation Comments TSH, THIRD GENERATION (test code 0.777 UIU/ML = 2821) [id number] 00:00:00 Test Item Value Reference Range Interpretation Comments TSH, THIRD GENERATION (test code 0.777 UIU/ML = 2821) [id number] 00:00:00 Test Item Value Reference Range Interpretation Comments TSH, THIRD GENERATION (test code 0.777 UIU/ML = 2821) MICROALBUMIN/CREATININE, RANDOM AND [id number] 00:00:00 Test Item Value Reference Range Interpretation Comments CREATININE, URINE, CONC. (test 127.3 MG/DL code = 2072) ALBUMIN, URINE, RANDOM (test code 65.2 MG/DL = 72491) CALC ALBUMIN/CREAT, RND (test 512 MG/G code = 26566) MICROALBUMIN/CREATININE, RANDOM AND [id number] 00:00:00 Test Item Value Reference Range Interpretation Comments CREATININE, URINE, CONC. (test 127.3 MG/DL code = 2072) ALBUMIN, URINE, RANDOM (test code 65.2 MG/DL = 01041) CALC ALBUMIN/CREAT, RND (test 512 MG/G code = 82879) COMPREHENSIVE METABOLIC [id number] 00:00:00 Test Item Value Reference Range Interpretation Comments GLUCOSE (test code = 2217) 353 MG/DL BUN (test code = 2208) 27 MG/DL CREATININE (test code = 2214) 0.90 MG/DL eGFR AMER. (test code 92 ML/MIN/1.73 = 19200) eGFR NON- AMER. (test 79 ML/MIN/1.73 code = 20584) CALC BUN/CREAT (test code = 30 RATIO [...] code = 2219) 18 U/L COMPREHENSIVE METABOLIC [id number] 00:00:00 Test Item Value Reference Range Interpretation Comments GLUCOSE (test code = 2217) 353 MG/DL BUN (test code = 2208) 27 MG/DL CREATININE (test code = 2214) 0.90 MG/DL eGFR AMER. (test code 92 ML/MIN/1.73 = 77151) eGFR NON- AMER. (test 79 ML/MIN/1.73 code = 42204) CALC BUN/CREAT (test code = 30 RATIO [...] (test code = 2219) 18 U/L LIPID [id number] 00:00:00 Test Item Value Reference Range Interpretation Comments CHOLESTEROL (test code = 2210) 412 MG/DL TRIGLYCERIDES (test code = 2232) 2520 MG/DL HDL CHOLESTEROL (test code = 16 MG/DL 2220) CALC LDL CHOL (test code = 2237) NOTE MG/DL RISK RATIO LDL/HDL (test code = (NOTE) RATIO 2238) LIPID [id number] 00:00:00 Test Item Value Reference Range Interpretation Comments CHOLESTEROL (test code = 2210) 412 MG/DL TRIGLYCERIDES (test code = 2232) 2520 MG/DL HDL CHOLESTEROL (test code = 16 MG/DL 2220) CALC LDL CHOL (test code = 2237) NOTE MG/DL RISK RATIO LDL/HDL (test code = (NOTE) RATIO 2238) HEMOGLOBIN [id number] 00:00:00 Test Item Value Reference Range Interpretation Comments HEMOGLOBIN A1c (test code = 42371) 10.7 % HEMOGLOBIN [id number] 00:00:00 Test Item Value Reference Range Interpretation Comments HEMOGLOBIN A1c (test code = 89015) 10.7 % HEMOGLOBIN [id number] 00:00:00 Test Item Value Reference Range Interpretation Comments HEMOGLOBIN A1c (test code = 21095) 10.7 % [id number] 00:00:00 Test Item Value Reference Range Interpretation Comments TSH, THIRD GENERATION (test code 0.777 UIU/ML = 2821) [id number] 00:00:00 Test Item Value Reference Range Interpretation Comments TSH, THIRD GENERATION (test code 0.777 UIU/ML = 2821) [id number] 00:00:00 Test Item Value Reference Range Interpretation Comments TSH, THIRD GENERATION (test code 0.777 UIU/ML = 2821) MICROALBUMIN/CREATININE, RANDOM AND [id number] 00:00:00 Test Item Value Reference Range Interpretation Comments CREATININE, URINE, CONC. (test 127.3 MG/DL code = 2072) ALBUMIN, URINE, RANDOM (test code 65.2 MG/DL = 91480) CALC ALBUMIN/CREAT, RND (test 512 MG/G code = 32740) MICROALBUMIN/CREATININE, RANDOM AND [id number] 00:00:00 Test Item Value Reference Range Interpretation Comments CREATININE, URINE, CONC. (test 127.3 MG/DL code = 2072) ALBUMIN, URINE, RANDOM (test code 65.2 MG/DL = 54145) CALC ALBUMIN/CREAT, RND (test 512 MG/G code = 18742) CULTURE, [id number] 00:00:00 Test Item Value Reference Range Interpretation Comments CULTURE, URINE (test SPECIMEN NUMBER: code = 52906) [id number] CULTURE, [id number] 00:00:00 Test Item Value Reference Range Interpretation Comments CULTURE, URINE (test SPECIMEN NUMBER: code = 49354) [id number] CULTURE, [id number] 00:00:00 Test Item Value Reference Range Interpretation Comments CULTURE, URINE (test SPECIMEN NUMBER: code = 81903) [id number] CULTURE, [id number] 00:00:00 Test Item Value Reference Range Interpretation Comments CULTURE, URINE (test SPECIMEN NUMBER: code = 58827) [id number] CULTURE, [id number] 00:00:00 Test Item Value Reference Range Interpretation Comments CULTURE, URINE (test SPECIMEN NUMBER: code = 63800) [id number] CULTURE, [id number] 00:00:00 Test Item Value Reference Range Interpretation Comments CULTURE, URINE (test SPECIMEN NUMBER: code = 96579) [id number] CULTURE, [id number] 00:00:00 Test Item Value Reference Range Interpretation Comments CULTURE, URINE (test SPECIMEN NUMBER: code = 92618) [id number] CULTURE, [id number] 00:00:00 Test Item Value Reference Range Interpretation Comments CULTURE, URINE (test SPECIMEN NUMBER: code = 01752) [id number] CULTURE, [id number] 00:00:00 Test Item Value Reference Range Interpretation Comments CULTURE, URINE (test SPECIMEN NUMBER: code = 71719) [id number] CULTURE, [id number] 00:00:00 Test Item Value Reference Range Interpretation Comments CULTURE, URINE (test SPECIMEN NUMBER: code = 57436) [id number] CULTURE, [id number] 00:00:00 Test Item Value Reference Range Interpretation Comments CULTURE, URINE (test SPECIMEN NUMBER: code = 86815) [id number] CULTURE, [id number] 00:00:00 Test Item Value Reference Range Interpretation Comments CULTURE, URINE (test SPECIMEN NUMBER: code = 84197) [id number] CULTURE, [id number] 00:00:00 Test Item Value Reference Range Interpretation Comments CULTURE, URINE (test SPECIMEN NUMBER: code = 15371) [id number] CULTURE, [id number] 00:00:00 Test Item Value Reference Range Interpretation Comments CULTURE, URINE (test SPECIMEN NUMBER: code = 51755) [id number] CULTURE, [id number] 00:00:00 Test Item Value Reference Range Interpretation Comments CULTURE, URINE (test SPECIMEN NUMBER: code = 23299) [id number] CULTURE, [id number] 00:00:00 Test Item Value Reference Range Interpretation Comments CULTURE, URINE (test SPECIMEN NUMBER: code = 05519) [id number] CULTURE, [id number] 00:00:00 Test Item Value Reference Range Interpretation Comments CULTURE, URINE (test SPECIMEN NUMBER: code = 91704) [id number] CULTURE, [id number] 00:00:00 Test Item Value Reference Range Interpretation Comments CULTURE, URINE (test SPECIMEN NUMBER: code = 64591) [id number] CULTURE, [id number] 00:00:00 Test Item Value Reference Range Interpretation Comments CULTURE, URINE (test SPECIMEN NUMBER: code = 95565) [id number] CULTURE, [id number] 00:00:00 Test Item Value Reference Range Interpretation Comments CULTURE, URINE (test SPECIMEN NUMBER: code = 28627) [id number] CULTURE, [id number] 00:00:00 Test Item Value Reference Range Interpretation Comments CULTURE, URINE (test SPECIMEN NUMBER: code = 30430) [id number] VAGINAL PATHOGENS DNA [id number] 00:00:00 Test Item Value Reference Range Interpretation Comments ANDIE SPECIES (test code = 77365) NEGATIVE G. VAGINALIS (test code = 69506) NEGATIVE T. VAGINALIS (test code = 28236) NEGATIVE VAGINAL PATHOGENS DNA [id number] 00:00:00 Test Item Value Reference Range Interpretation Comments ANDIE SPECIES (test code = 57755) NEGATIVE G. VAGINALIS (test code = 60197) NEGATIVE T. VAGINALIS (test code = 18521) NEGATIVE VAGINAL PATHOGENS DNA [id number] 00:00:00 Test Item Value Reference Range Interpretation Comments ANDIE SPECIES (test code = 56514) NEGATIVE G. VAGINALIS (test code = 75599) NEGATIVE T. VAGINALIS (test code = 15260) NEGATIVE VAGINAL PATHOGENS DNA [id number] 00:00:00 Test Item Value Reference Range Interpretation Comments ANDIE SPECIES (test code = 26853) NEGATIVE G. VAGINALIS (test code = 49547) NEGATIVE T. VAGINALIS (test code = 98595) NEGATIVE VAGINAL PATHOGENS DNA [id number] 00:00:00 Test Item Value Reference Range Interpretation Comments ANDIE SPECIES (test code = 49238) NEGATIVE G. VAGINALIS (test code = 26053) NEGATIVE T. VAGINALIS (test code = 24970) NEGATIVE VAGINAL PATHOGENS DNA [id number] 00:00:00 Test Item Value Reference Range Interpretation Comments ANDIE SPECIES (test code = 69494) NEGATIVE G. VAGINALIS (test code = 03698) NEGATIVE T. VAGINALIS (test code = 82572) NEGATIVE VAGINAL PATHOGENS DNA [id number] 00:00:00 Test Item Value Reference Range Interpretation Comments ANDIE SPECIES (test code = 73675) NEGATIVE G. VAGINALIS (test code = 91053) NEGATIVE T. VAGINALIS (test code = 04241) NEGATIVE VAGINAL PATHOGENS DNA [id number] 00:00:00 Test Item Value Reference Range Interpretation Comments ANDIE SPECIES (test code = 40841) NEGATIVE G. VAGINALIS (test code = 54566) NEGATIVE T. VAGINALIS (test code = 16145) NEGATIVE VAGINAL PATHOGENS DNA [id number] 00:00:00 Test Item Value Reference Range Interpretation Comments ANDIE SPECIES (test code = 27414) NEGATIVE G. VAGINALIS (test code = 60168) NEGATIVE T. VAGINALIS (test code = 13034) NEGATIVE VAGINAL PATHOGENS DNA [id number] 00:00:00 Test Item Value Reference Range Interpretation Comments ANDIE SPECIES (test code = 69767) NEGATIVE G. VAGINALIS (test code = 30777) NEGATIVE T. VAGINALIS (test code = 12275) NEGATIVE VAGINAL PATHOGENS DNA [id number] 00:00:00 Test Item Value Reference Range Interpretation Comments ANDIE SPECIES (test code = 88021) NEGATIVE G. VAGINALIS (test code = 37480) NEGATIVE T. VAGINALIS (test code = 79429) NEGATIVE VAGINAL PATHOGENS DNA [id number] 00:00:00 Test Item Value Reference Range Interpretation Comments ANDIE SPECIES (test code = 55033) NEGATIVE G. VAGINALIS (test code = 83456) NEGATIVE T. VAGINALIS (test code = 50622) NEGATIVE VAGINAL PATHOGENS DNA [id number] 00:00:00 Test Item Value Reference Range Interpretation Comments ANDIE SPECIES (test code = 49076) NEGATIVE G. VAGINALIS (test code = 65412) NEGATIVE T. VAGINALIS (test code = 31428) NEGATIVE VAGINAL PATHOGENS DNA [id number] 00:00:00 Test Item Value Reference Range Interpretation Comments ANDIE SPECIES (test code = 69010) NEGATIVE G. VAGINALIS (test code = 54427) NEGATIVE T. VAGINALIS (test code = 07785) NEGATIVE VAGINAL PATHOGENS DNA [id number] 00:00:00 Test Item Value Reference Range Interpretation Comments ANDIE SPECIES (test code = 97717) NEGATIVE G. VAGINALIS (test code = 05190) NEGATIVE T. VAGINALIS (test code = 06443) NEGATIVE VAGINAL PATHOGENS DNA [id number] 00:00:00 Test Item Value Reference Range Interpretation Comments ANDIE SPECIES (test code = 12290) NEGATIVE G. VAGINALIS (test code = 12816) NEGATIVE T. VAGINALIS (test code = 55435) NEGATIVE VAGINAL PATHOGENS DNA [id number] 00:00:00 Test Item Value Reference Range Interpretation Comments ANDIE SPECIES (test code = 43254) NEGATIVE G. VAGINALIS (test code = 03560) NEGATIVE T. VAGINALIS (test code = 62802) NEGATIVE VAGINAL PATHOGENS DNA [id number] 00:00:00 Test Item Value Reference Range Interpretation Comments ANDIE SPECIES (test code = 23823) NEGATIVE G. VAGINALIS (test code = 94712) NEGATIVE T. VAGINALIS (test code = 26702) NEGATIVE VAGINAL PATHOGENS DNA [id number] 00:00:00 Test Item Value Reference Range Interpretation Comments ANDIE SPECIES (test code = 25144) NEGATIVE G. VAGINALIS (test code = 83921) NEGATIVE T. VAGINALIS (test code = 08413) NEGATIVE VAGINAL PATHOGENS DNA [id number] 00:00:00 Test Item Value Reference Range Interpretation Comments ANDIE SPECIES (test code = 63276) NEGATIVE G. VAGINALIS (test code = 15994) NEGATIVE T. VAGINALIS (test code = 98629) NEGATIVE VAGINAL PATHOGENS DNA [id number] 00:00:00 Test Item Value Reference Range Interpretation Comments ANDIE SPECIES (test code = 04866) NEGATIVE G. VAGINALIS (test code = 50748) NEGATIVE T. VAGINALIS (test code = 77550) NEGATIVE COMPREHENSIVE METABOLIC PANEL [ADDED]2018-05-24 00:00:00 Test Item Value Reference Range Interpretation Comments GLUCOSE (test code = 2217) 198 MG/DL BUN (test code = 2208) 18 MG/DL CREATININE (test code = 2214) 0.86 MG/DL eGFR AMER. (test code 98 ML/MIN/1.73 = 61777) eGFR NON- AMER. (test 84 ML/MIN/1.73 code = 15844) CALC BUN/CREAT (test code = 21 RATIO [...] eGFR AMER. (test code 98 ML/MIN/1.73 = 67314) eGFR NON- AMER. (test 84 ML/MIN/1.73 code = 23286) CALC BUN/CREAT (test code = 21 RATIO [...] Interpretation Comments HEMOGLOBIN A1c (test code = 43440) 10.1 % HEMOGLOBIN A1c [ADDED]2018-05-24 00:00:00 Test Item Value Reference Range Interpretation Comments HEMOGLOBIN A1c (test code = 17477) 10.1 % HEMOGLOBIN A1c [ADDED]2018-05-24 00:00:00 Test Item Value Reference Range Interpretation Comments HEMOGLOBIN A1c (test code = 14968) 10.1 % COMPREHENSIVE METABOLIC PANEL [ADDED]2018-05-24 00:00:00 Test Item Value Reference Range Interpretation Comments GLUCOSE (test code = 2217) 198 MG/DL BUN (test code = 2208) 18 MG/DL CREATININE (test code = 2214) 0.86 MG/DL eGFR AMER. (test code 98 ML/MIN/1.73 = 14540) eGFR NON- AMER. (test 84 ML/MIN/1.73 code = 78363) CALC BUN/CREAT (test code = 21 RATIO [...] eGFR AMER. (test code 98 ML/MIN/1.73 = 53255) eGFR NON- AMER. (test 84 ML/MIN/1.73 code = 77799) CALC BUN/CREAT (test code = 21 RATIO [...] Interpretation Comments HEMOGLOBIN A1c (test code = 25175) 10.1 % HEMOGLOBIN A1c [ADDED]2018-05-24 00:00:00 Test Item Value Reference Range Interpretation Comments HEMOGLOBIN A1c (test code = 33185) 10.1 % HEMOGLOBIN A1c [ADDED]2018-05-24 00:00:00 Test Item Value Reference Range Interpretation Comments HEMOGLOBIN A1c (test code = 14306) 10.1 % COMPREHENSIVE METABOLIC PANEL [ADDED]2018-05-24 00:00:00 Test Item Value Reference Range Interpretation Comments GLUCOSE (test code = 2217) 198 MG/DL BUN (test code = 2208) 18 MG/DL CREATININE (test code = 2214) 0.86 MG/DL eGFR AMER. (test code 98 ML/MIN/1.73 = 45301) eGFR NON- AMER. (test 84 ML/MIN/1.73 code = 11109) CALC BUN/CREAT (test code = 21 RATIO [...] eGFR AMER. (test code 98 ML/MIN/1.73 = 49798) eGFR NON- AMER. (test 84 ML/MIN/1.73 code = 61232) CALC BUN/CREAT (test code = 21 RATIO [...] Interpretation Comments HEMOGLOBIN A1c (test code = 47189) 10.1 % HEMOGLOBIN A1c [ADDED]2018-05-24 00:00:00 Test Item Value Reference Range Interpretation Comments HEMOGLOBIN A1c (test code = 06176) 10.1 % HEMOGLOBIN A1c [ADDED]2018-05-24 00:00:00 Test Item Value Reference Range Interpretation Comments HEMOGLOBIN A1c (test code = 75028) 10.1 % COMPREHENSIVE METABOLIC PANEL [ADDED]2018-05-24 00:00:00 Test Item Value Reference Range Interpretation Comments GLUCOSE (test code = 2217) 198 MG/DL BUN (test code = 2208) 18 MG/DL CREATININE (test code = 2214) 0.86 MG/DL eGFR AMER. (test code 98 ML/MIN/1.73 = 53544) eGFR NON- AMER. (test 84 ML/MIN/1.73 code = 47620) CALC BUN/CREAT (test code = 21 RATIO [...] eGFR AMER. (test code 98 ML/MIN/1.73 = 43192) eGFR NON- AMER. (test 84 ML/MIN/1.73 code = 70166) CALC BUN/CREAT (test code = 21 RATIO [...] Interpretation Comments HEMOGLOBIN A1c (test code = 17043) 10.1 % HEMOGLOBIN A1c [ADDED]2018-05-24 00:00:00 Test Item Value Reference Range Interpretation Comments HEMOGLOBIN A1c (test code = 45461) 10.1 % HEMOGLOBIN A1c [ADDED]2018-05-24 00:00:00 Test Item Value Reference Range Interpretation Comments HEMOGLOBIN A1c (test code = 33852) 10.1 % COMPREHENSIVE METABOLIC PANEL [ADDED]2018-05-24 00:00:00 Test Item Value Reference Range Interpretation Comments GLUCOSE (test code = 2217) 198 MG/DL BUN (test code = 2208) 18 MG/DL CREATININE (test code = 2214) 0.86 MG/DL eGFR AMER. (test code 98 ML/MIN/1.73 = 29182) eGFR NON- AMER. (test 84 ML/MIN/1.73 code = 44775) CALC BUN/CREAT (test code = 21 RATIO [...] eGFR AMER. (test code 98 ML/MIN/1.73 = 67531) eGFR NON- AMER. (test 84 ML/MIN/1.73 code = 40216) CALC BUN/CREAT (test code = 21 RATIO [...] Interpretation Comments HEMOGLOBIN A1c (test code = 70656) 10.1 % HEMOGLOBIN A1c [ADDED]2018-05-24 00:00:00 Test Item Value Reference Range Interpretation Comments HEMOGLOBIN A1c (test code = 94260) 10.1 % HEMOGLOBIN A1c [ADDED]2018-05-24 00:00:00 Test Item Value Reference Range Interpretation Comments HEMOGLOBIN A1c (test code = 46842) 10.1 % COMPREHENSIVE METABOLIC PANEL [ADDED]2018-05-24 00:00:00 Test Item Value Reference Range Interpretation Comments GLUCOSE (test code = 2217) 198 MG/DL BUN (test code = 2208) 18 MG/DL CREATININE (test code = 2214) 0.86 MG/DL eGFR AMER. (test code 98 ML/MIN/1.73 = 39334) eGFR NON- AMER. (test 84 ML/MIN/1.73 code = 06120) CALC BUN/CREAT (test code = 21 RATIO [...] eGFR AMER. (test code 98 ML/MIN/1.73 = 80214) eGFR NON- AMER. (test 84 ML/MIN/1.73 code = 31569) CALC BUN/CREAT (test code = 21 RATIO [...] Interpretation Comments HEMOGLOBIN A1c (test code = 82170) 10.1 % HEMOGLOBIN A1c [ADDED]2018-05-24 00:00:00 Test Item Value Reference Range Interpretation Comments HEMOGLOBIN A1c (test code = 46090) 10.1 % HEMOGLOBIN A1c [ADDED]2018-05-24 00:00:00 Test Item Value Reference Range Interpretation Comments HEMOGLOBIN A1c (test code = 01720) 10.1 % COMPREHENSIVE METABOLIC PANEL [ADDED]2018-05-24 00:00:00 Test Item Value Reference Range Interpretation Comments GLUCOSE (test code = 2217) 198 MG/DL BUN (test code = 2208) 18 MG/DL CREATININE (test code = 2214) 0.86 MG/DL eGFR AMER. (test code 98 ML/MIN/1.73 = 47405) eGFR NON- AMER. (test 84 ML/MIN/1.73 code = 60070) CALC BUN/CREAT (test code = 21 RATIO [...] eGFR AMER. (test code 98 ML/MIN/1.73 = 74993) eGFR NON- AMER. (test 84 ML/MIN/1.73 code = 25935) CALC BUN/CREAT (test code = 21 RATIO [...] Interpretation Comments HEMOGLOBIN A1c (test code = 77406) 10.1 % HEMOGLOBIN A1c [ADDED]2018-05-24 00:00:00 Test Item Value Reference Range Interpretation Comments HEMOGLOBIN A1c (test code = 60668) 10.1 % HEMOGLOBIN A1c [ADDED]2018-05-24 00:00:00 Test Item Value Reference Range Interpretation Comments HEMOGLOBIN A1c (test code = 26406) 10.1 % COMPREHENSIVE METABOLIC PANEL [ADDED]2018-05-24 00:00:00 Test Item Value Reference Range Interpretation Comments GLUCOSE (test code = 2217) 198 MG/DL BUN (test code = 2208) 18 MG/DL CREATININE (test code = 2214) 0.86 MG/DL eGFR AMER. (test code 98 ML/MIN/1.73 = 41932) eGFR NON- AMER. (test 84 ML/MIN/1.73 code = 08252) CALC BUN/CREAT (test code = 21 RATIO [...] Interpretation Comments HEMOGLOBIN A1c (test code = 23657) 10.1 % HEMOGLOBIN A1c [ADDED]2018-05-24 00:00:00 Test Item Value Reference Range Interpretation Comments HEMOGLOBIN A1c (test code = 97049) 10.1 % COMPREHENSIVE METABOLIC PANEL [ADDED]2018-05-24 00:00:00 Test Item Value Reference Range Interpretation Comments GLUCOSE (test code = 2217) 198 MG/DL BUN (test code = 2208) 18 MG/DL CREATININE (test code = 2214) 0.86 MG/DL eGFR AMER. (test code 98 ML/MIN/1.73 = 41156) eGFR NON- AMER. (test 84 ML/MIN/1.73 code = 58035) CALC BUN/CREAT (test code = 21 RATIO [...] ALKALINE PHOSPHATASE (test 42 U/L code = 220) AST (test code = 2218) 25 U/L ALT (test code = 2219) 32 U/L COMPREHENSIVE METABOLIC PANEL [ADDED]2018-05-24 00:00:00 Test Item Value Reference Range Interpretation Comments GLUCOSE (test code = 2217) 198 MG/DL BUN (test code = 2208) 18 MG/DL CREATININE (test code = 2214) 0.86 MG/DL eGFR AMER. (test code 98 ML/MIN/1.73 = 44000) eGFR NON- AMER. (test 84 ML/MIN/1.73 code = 18539) CALC BUN/CREAT (test code = 21 RATIO [...] Interpretation Comments HEMOGLOBIN A1c (test code = 04607) 10.1 % HEMOGLOBIN A1c [ADDED]2018-05-24 00:00:00 Test Item Value Reference Range Interpretation Comments HEMOGLOBIN A1c (test code = 43763) 10.1 % HEMOGLOBIN A1c [ADDED]2018-05-24 00:00:00 Test Item Value Reference Range Interpretation Comments HEMOGLOBIN A1c (test code = 02680) 10.1 % COMPREHENSIVE METABOLIC PANEL [ADDED]2018-05-24 00:00:00 Test Item Value Reference Range Interpretation Comments GLUCOSE (test code = 2217) 198 MG/DL BUN (test code = 2208) 18 MG/DL CREATININE (test code = 2214) 0.86 MG/DL eGFR AMER. (test code 98 ML/MIN/1.73 = 26004) eGFR NON- AMER. (test 84 ML/MIN/1.73 code = 74558) CALC BUN/CREAT (test code = 21 RATIO [...] eGFR AMER. (test code 98 ML/MIN/1.73 = 87686) eGFR NON- AMER. (test 84 ML/MIN/1.73 code = 40186) CALC BUN/CREAT (test code = 21 RATIO [...] Interpretation Comments HEMOGLOBIN A1c (test code = 54901) 10.1 % HEMOGLOBIN A1c [ADDED]2018-05-24 00:00:00 Test Item Value Reference Range Interpretation Comments HEMOGLOBIN A1c (test code = 35728) 10.1 % HEMOGLOBIN A1c [ADDED]2018-05-24 00:00:00 Test Item Value Reference Range Interpretation Comments HEMOGLOBIN A1c (test code = 11733) 10.1 % COMPREHENSIVE METABOLIC PANEL [ADDED]2018-05-24 00:00:00 Test Item Value Reference Range Interpretation Comments GLUCOSE (test code = 2217) 198 MG/DL BUN (test code = 2208) 18 MG/DL CREATININE (test code = 2214) 0.86 MG/DL eGFR AMER. (test code 98 ML/MIN/1.73 = 20828) eGFR NON- AMER. (test 84 ML/MIN/1.73 code = 47124) CALC BUN/CREAT (test code = 21 RATIO [...] eGFR AMER. (test code 98 ML/MIN/1.73 = 61165) eGFR NON- AMER. (test 84 ML/MIN/1.73 code = 05321) CALC BUN/CREAT (test code = 21 RATIO [...] Interpretation Comments HEMOGLOBIN A1c (test code = 29021) 10.1 % HEMOGLOBIN A1c [ADDED]2018-05-24 00:00:00 Test Item Value Reference Range Interpretation Comments HEMOGLOBIN A1c (test code = 35409) 10.1 % HEMOGLOBIN A1c [ADDED]2018-05-24 00:00:00 Test Item Value Reference Range Interpretation Comments HEMOGLOBIN A1c (test code = 70647) 10.1 % HEMOGLOBIN [id number] 00:00:00 Test Item Value Reference Range Interpretation Comments HEMOGLOBIN A1c (test code = 64749) 8.5 % HEMOGLOBIN [id number] 00:00:00 Test Item Value Reference Range Interpretation Comments HEMOGLOBIN A1c (test code = 32255) 8.5 % HEMOGLOBIN [id number] 00:00:00 Test Item Value Reference Range Interpretation Comments HEMOGLOBIN A1c (test code = 57738) 8.5 % COMPREHENSIVE METABOLIC [id number] 00:00:00 Test Item Value Reference Range Interpretation Comments GLUCOSE (test code = 2217) 131 MG/DL BUN (test code = 2208) 16 MG/DL CREATININE (test code = 2214) 0.71 MG/DL eGFR AMER. (test code 124 ML/MIN/1.73 = 44601) eGFR NON- AMER. (test 107 ML/MIN/1.73 code = 32160) CALC BUN/CREAT (test code = 23 RATIO [...] code = 2219) 33 U/L COMPREHENSIVE METABOLIC [id number] 00:00:00 Test Item Value Reference Range Interpretation Comments GLUCOSE (test code = 2217) 131 MG/DL BUN (test code = 2208) 16 MG/DL CREATININE (test code = 2214) 0.71 MG/DL eGFR AMER. (test code 124 ML/MIN/1.73 = 60219) eGFR NON- AMER. (test 107 ML/MIN/1.73 code = 12853) CALC BUN/CREAT (test code = 23 RATIO [...] (test code = 2219) 33 U/L LIPID [id number] 00:00:00 Test Item Value Reference Range Interpretation Comments CHOLESTEROL (test code = 2210) 201 MG/DL TRIGLYCERIDES (test code = 2232) 1014 MG/DL HDL CHOLESTEROL (test code = 25 MG/DL 2220) CALC LDL CHOL (test code = 2237) NOTE MG/DL RISK RATIO LDL/HDL (test code = (NOTE) RATIO 2238) LIPID [id number] 00:00:00 Test Item Value Reference Range Interpretation Comments CHOLESTEROL (test code = 2210) 201 MG/DL TRIGLYCERIDES (test code = 2232) 1014 MG/DL HDL CHOLESTEROL (test code = 25 MG/DL 2220) CALC LDL CHOL (test code = 2237) NOTE MG/DL RISK RATIO LDL/HDL (test code = (NOTE) RATIO 2238) HEMOGLOBIN [id number] 00:00:00 Test Item Value Reference Range Interpretation Comments HEMOGLOBIN A1c (test code = 51219) 8.5 % HEMOGLOBIN [id number] 00:00:00 Test Item Value Reference Range Interpretation Comments HEMOGLOBIN A1c (test code = 98463) 8.5 % HEMOGLOBIN [id number] 00:00:00 Test Item Value Reference Range Interpretation Comments HEMOGLOBIN A1c (test code = 29127) 8.5 % COMPREHENSIVE METABOLIC [id number] 00:00:00 Test Item Value Reference Range Interpretation Comments GLUCOSE (test code = 2217) 131 MG/DL BUN (test code = 2208) 16 MG/DL CREATININE (test code = 2214) 0.71 MG/DL eGFR AMER. (test code 124 ML/MIN/1.73 = 63873) eGFR NON- AMER. (test 107 ML/MIN/1.73 code = 28992) CALC BUN/CREAT (test code = 23 RATIO [...] code = 2219) 33 U/L COMPREHENSIVE METABOLIC [id number] 00:00:00 Test Item Value Reference Range Interpretation Comments GLUCOSE (test code = 2217) 131 MG/DL BUN (test code = 2208) 16 MG/DL CREATININE (test code = 2214) 0.71 MG/DL eGFR AMER. (test code 124 ML/MIN/1.73 = 37248) eGFR NON- AMER. (test 107 ML/MIN/1.73 code = 37045) CALC BUN/CREAT (test code = 23 RATIO [...] (test code = 2219) 33 U/L LIPID [id number] 00:00:00 Test Item Value Reference Range Interpretation Comments CHOLESTEROL (test code = 2210) 201 MG/DL TRIGLYCERIDES (test code = 2232) 1014 MG/DL HDL CHOLESTEROL (test code = 25 MG/DL 2220) CALC LDL CHOL (test code = 2237) NOTE MG/DL RISK RATIO LDL/HDL (test code = (NOTE) RATIO 2238) LIPID [id number] 00:00:00 Test Item Value Reference Range Interpretation Comments CHOLESTEROL (test code = 2210) 201 MG/DL TRIGLYCERIDES (test code = 2232) 1014 MG/DL HDL CHOLESTEROL (test code = 25 MG/DL 2220) CALC LDL CHOL (test code = 2237) NOTE MG/DL RISK RATIO LDL/HDL (test code = (NOTE) RATIO 2238) HEMOGLOBIN [id number] 00:00:00 Test Item Value Reference Range Interpretation Comments HEMOGLOBIN A1c (test code = 11352) 8.5 % HEMOGLOBIN [id number] 00:00:00 Test Item Value Reference Range Interpretation Comments HEMOGLOBIN A1c (test code = 01043) 8.5 % HEMOGLOBIN [id number] 00:00:00 Test Item Value Reference Range Interpretation Comments HEMOGLOBIN A1c (test code = 52028) 8.5 % COMPREHENSIVE METABOLIC [id number] 00:00:00 Test Item Value Reference Range Interpretation Comments GLUCOSE (test code = 2217) 131 MG/DL BUN (test code = 2208) 16 MG/DL CREATININE (test code = 2214) 0.71 MG/DL eGFR AMER. (test code 124 ML/MIN/1.73 = 17940) eGFR NON- AMER. (test 107 ML/MIN/1.73 code = 64868) CALC BUN/CREAT (test code = 23 RATIO [...] code = 2219) 33 U/L COMPREHENSIVE METABOLIC [id number] 00:00:00 Test Item Value Reference Range Interpretation Comments GLUCOSE (test code = 2217) 131 MG/DL BUN (test code = 2208) 16 MG/DL CREATININE (test code = 2214) 0.71 MG/DL eGFR AMER. (test code 124 ML/MIN/1.73 = 79735) eGFR NON- AMER. (test 107 ML/MIN/1.73 code = 46765) CALC BUN/CREAT (test code = 23 RATIO [...] (test code = 2219) 33 U/L LIPID [id number] 00:00:00 Test Item Value Reference Range Interpretation Comments CHOLESTEROL (test code = 2210) 201 MG/DL TRIGLYCERIDES (test code = 2232) 1014 MG/DL HDL CHOLESTEROL (test code = 25 MG/DL 2220) CALC LDL CHOL (test code = 2237) NOTE MG/DL RISK RATIO LDL/HDL (test code = (NOTE) RATIO 2238) LIPID [id number] 00:00:00 Test Item Value Reference Range Interpretation Comments CHOLESTEROL (test code = 2210) 201 MG/DL TRIGLYCERIDES (test code = 2232) 1014 MG/DL HDL CHOLESTEROL (test code = 25 MG/DL 2220) CALC LDL CHOL (test code = 2237) NOTE MG/DL RISK RATIO LDL/HDL (test code = (NOTE) RATIO 2238) HEMOGLOBIN [id number] 00:00:00 Test Item Value Reference Range Interpretation Comments HEMOGLOBIN A1c (test code = 59758) 8.5 % HEMOGLOBIN [id number] 00:00:00 Test Item Value Reference Range Interpretation Comments HEMOGLOBIN A1c (test code = 29221) 8.5 % HEMOGLOBIN [id number] 00:00:00 Test Item Value Reference Range Interpretation Comments HEMOGLOBIN A1c (test code = 54028) 8.5 % COMPREHENSIVE METABOLIC [id number] 00:00:00 Test Item Value Reference Range Interpretation Comments GLUCOSE (test code = 2217) 131 MG/DL BUN (test code = 2208) 16 MG/DL CREATININE (test code = 2214) 0.71 MG/DL eGFR AMER. (test code 124 ML/MIN/1.73 = 27242) eGFR NON- AMER. (test 107 ML/MIN/1.73 code = 25887) CALC BUN/CREAT (test code = 23 RATIO [...] code = 2219) 33 U/L COMPREHENSIVE METABOLIC [id number] 00:00:00 Test Item Value Reference Range Interpretation Comments GLUCOSE (test code = 2217) 131 MG/DL BUN (test code = 2208) 16 MG/DL CREATININE (test code = 2214) 0.71 MG/DL eGFR AMER. (test code 124 ML/MIN/1.73 = 71118) eGFR NON- AMER. (test 107 ML/MIN/1.73 code = 69585) CALC BUN/CREAT (test code = 23 RATIO [...] (test code = 2219) 33 U/L LIPID [id number] 00:00:00 Test Item Value Reference Range Interpretation Comments CHOLESTEROL (test code = 2210) 201 MG/DL TRIGLYCERIDES (test code = 2232) 1014 MG/DL HDL CHOLESTEROL (test code = 25 MG/DL 2220) CALC LDL CHOL (test code = 2237) NOTE MG/DL RISK RATIO LDL/HDL (test code = (NOTE) RATIO 2238) LIPID [id number] 00:00:00 Test Item Value Reference Range Interpretation Comments CHOLESTEROL (test code = 2210) 201 MG/DL TRIGLYCERIDES (test code = 2232) 1014 MG/DL HDL CHOLESTEROL (test code = 25 MG/DL 2220) CALC LDL CHOL (test code = 2237) NOTE MG/DL RISK RATIO LDL/HDL (test code = (NOTE) RATIO 2238) HEMOGLOBIN [id number] 00:00:00 Test Item Value Reference Range Interpretation Comments HEMOGLOBIN A1c (test code = 57908) 8.5 % HEMOGLOBIN [id number] 00:00:00 Test Item Value Reference Range Interpretation Comments HEMOGLOBIN A1c (test code = 09301) 8.5 % HEMOGLOBIN [id number] 00:00:00 Test Item Value Reference Range Interpretation Comments HEMOGLOBIN A1c (test code = 08803) 8.5 % COMPREHENSIVE METABOLIC [id number] 00:00:00 Test Item Value Reference Range Interpretation Comments GLUCOSE (test code = 2217) 131 MG/DL BUN (test code = 2208) 16 MG/DL CREATININE (test code = 2214) 0.71 MG/DL eGFR AMER. (test code 124 ML/MIN/1.73 = 63056) eGFR NON- AMER. (test 107 ML/MIN/1.73 code = 41976) CALC BUN/CREAT (test code = 23 RATIO [...] code = 2219) 33 U/L COMPREHENSIVE METABOLIC [id number] 00:00:00 Test Item Value Reference Range Interpretation Comments GLUCOSE (test code = 2217) 131 MG/DL BUN (test code = 2208) 16 MG/DL CREATININE (test code = 2214) 0.71 MG/DL eGFR AMER. (test code 124 ML/MIN/1.73 = 80599) eGFR NON- AMER. (test 107 ML/MIN/1.73 code = 07275) CALC BUN/CREAT (test code = 23 RATIO [...] (test code = 2219) 33 U/L LIPID [id number] 00:00:00 Test Item Value Reference Range Interpretation Comments CHOLESTEROL (test code = 2210) 201 MG/DL TRIGLYCERIDES (test code = 2232) 1014 MG/DL HDL CHOLESTEROL (test code = 25 MG/DL 2220) CALC LDL CHOL (test code = 2237) NOTE MG/DL RISK RATIO LDL/HDL (test code = (NOTE) RATIO 2238) LIPID [id number] 00:00:00 Test Item Value Reference Range Interpretation Comments CHOLESTEROL (test code = 2210) 201 MG/DL TRIGLYCERIDES (test code = 2232) 1014 MG/DL HDL CHOLESTEROL (test code = 25 MG/DL 2220) CALC LDL CHOL (test code = 2237) NOTE MG/DL RISK RATIO LDL/HDL (test code = (NOTE) RATIO 2238) HEMOGLOBIN [id number] 00:00:00 Test Item Value Reference Range Interpretation Comments HEMOGLOBIN A1c (test code = 51874) 8.5 % HEMOGLOBIN [id number] 00:00:00 Test Item Value Reference Range Interpretation Comments HEMOGLOBIN A1c (test code = 44585) 8.5 % HEMOGLOBIN [id number] 00:00:00 Test Item Value Reference Range Interpretation Comments HEMOGLOBIN A1c (test code = 45924) 8.5 % COMPREHENSIVE METABOLIC [id number] 00:00:00 Test Item Value Reference Range Interpretation Comments GLUCOSE (test code = 2217) 131 MG/DL BUN (test code = 2208) 16 MG/DL CREATININE (test code = 2214) 0.71 MG/DL eGFR AMER. (test code 124 ML/MIN/1.73 = 49126) eGFR NON- AMER. (test 107 ML/MIN/1.73 code = 59723) CALC BUN/CREAT (test code = 23 RATIO [...] code = 2219) 33 U/L COMPREHENSIVE METABOLIC [id number] 00:00:00 Test Item Value Reference Range Interpretation Comments GLUCOSE (test code = 2217) 131 MG/DL BUN (test code = 2208) 16 MG/DL CREATININE (test code = 2214) 0.71 MG/DL eGFR AMER. (test code 124 ML/MIN/1.73 = 48849) eGFR NON- AMER. (test 107 ML/MIN/1.73 code = 87286) CALC BUN/CREAT (test code = 23 RATIO [...] (test code = 2219) 33 U/L LIPID [id number] 00:00:00 Test Item Value Reference Range Interpretation Comments CHOLESTEROL (test code = 2210) 201 MG/DL TRIGLYCERIDES (test code = 2232) 1014 MG/DL HDL CHOLESTEROL (test code = 25 MG/DL 2220) CALC LDL CHOL (test code = 2237) NOTE MG/DL RISK RATIO LDL/HDL (test code = (NOTE) RATIO 2238) LIPID [id number] 00:00:00 Test Item Value Reference Range Interpretation Comments CHOLESTEROL (test code = 2210) 201 MG/DL TRIGLYCERIDES (test code = 2232) 1014 MG/DL HDL CHOLESTEROL (test code = 25 MG/DL 2220) CALC LDL CHOL (test code = 2237) NOTE MG/DL RISK RATIO LDL/HDL (test code = (NOTE) RATIO 2238) HEMOGLOBIN [id number] 00:00:00 Test Item Value Reference Range Interpretation Comments HEMOGLOBIN A1c (test code = 95882) 8.5 % HEMOGLOBIN [id number] 00:00:00 Test Item Value Reference Range Interpretation Comments HEMOGLOBIN A1c (test code = 69154) 8.5 % HEMOGLOBIN [id number] 00:00:00 Test Item Value Reference Range Interpretation Comments HEMOGLOBIN A1c (test code = 16778) 8.5 % COMPREHENSIVE METABOLIC [id number] 00:00:00 Test Item Value Reference Range Interpretation Comments GLUCOSE (test code = 2217) 131 MG/DL BUN (test code = 2208) 16 MG/DL CREATININE (test code = 2214) 0.71 MG/DL eGFR AMER. (test code 124 ML/MIN/1.73 = 72195) eGFR NON- AMER. (test 107 ML/MIN/1.73 code = 66141) CALC BUN/CREAT (test code = 23 RATIO [...] code = 2219) 33 U/L COMPREHENSIVE METABOLIC [id number] 00:00:00 Test Item Value Reference Range Interpretation Comments GLUCOSE (test code = 2217) 131 MG/DL BUN (test code = 2208) 16 MG/DL CREATININE (test code = 2214) 0.71 MG/DL eGFR AMER. (test code 124 ML/MIN/1.73 = 49545) eGFR NON- AMER. (test 107 ML/MIN/1.73 code = 68959) CALC BUN/CREAT (test code = 23 RATIO [...] (test code = 2219) 33 U/L LIPID [id number] 00:00:00 Test Item Value Reference Range Interpretation Comments CHOLESTEROL (test code = 2210) 201 MG/DL TRIGLYCERIDES (test code = 2232) 1014 MG/DL HDL CHOLESTEROL (test code = 25 MG/DL 2220) CALC LDL CHOL (test code = 2237) NOTE MG/DL RISK RATIO LDL/HDL (test code = (NOTE) RATIO 2238) LIPID [id number] 00:00:00 Test Item Value Reference Range Interpretation Comments CHOLESTEROL (test code = 2210) 201 MG/DL TRIGLYCERIDES (test code = 2232) 1014 MG/DL HDL CHOLESTEROL (test code = 25 MG/DL 2220) CALC LDL CHOL (test code = 2237) NOTE MG/DL RISK RATIO LDL/HDL (test code = (NOTE) RATIO 2238) HEMOGLOBIN [id number] 00:00:00 Test Item Value Reference Range Interpretation Comments HEMOGLOBIN A1c (test code = 93772) 8.5 % HEMOGLOBIN [id number] 00:00:00 Test Item Value Reference Range Interpretation Comments HEMOGLOBIN A1c (test code = 36159) 8.5 % COMPREHENSIVE METABOLIC [id number] 00:00:00 Test Item Value Reference Range Interpretation Comments GLUCOSE (test code = 2217) 131 MG/DL BUN (test code = 2208) 16 MG/DL CREATININE (test code = 2214) 0.71 MG/DL eGFR AMER. (test code 124 ML/MIN/1.73 = 67657) eGFR NON- AMER. (test 107 ML/MIN/1.73 code = 58871) CALC BUN/CREAT (test code = 23 RATIO [...] (test code = 2219) 33 U/L LIPID [id number] 00:00:00 Test Item Value Reference Range Interpretation Comments CHOLESTEROL (test code = 2210) 201 MG/DL TRIGLYCERIDES (test code = 2232) 1014 MG/DL HDL CHOLESTEROL (test code = 25 MG/DL 0) CALC LDL CHOL (test code = 2237) NOTE MG/DL RISK RATIO LDL/HDL (test code = (NOTE) RATIO 2238) HEMOGLOBIN [id number] 00:00:00 Test Item Value Reference Range Interpretation Comments HEMOGLOBIN A1c (test code = 26240) 8.5 % HEMOGLOBIN [id number] 00:00:00 Test Item Value Reference Range Interpretation Comments HEMOGLOBIN A1c (test code = 33741) 8.5 % HEMOGLOBIN [id number] 00:00:00 Test Item Value Reference Range Interpretation Comments HEMOGLOBIN A1c (test code = 30913) 8.5 % COMPREHENSIVE METABOLIC [id number] 00:00:00 Test Item Value Reference Range Interpretation Comments GLUCOSE (test code = 2217) 131 MG/DL BUN (test code = 2208) 16 MG/DL CREATININE (test code = 2214) 0.71 MG/DL eGFR AMER. (test code 124 ML/MIN/1.73 = 72507) eGFR NON- AMER. (test 107 ML/MIN/1.73 code = 02790) CALC BUN/CREAT (test code = 23 RATIO [...] code = 2219) 33 U/L COMPREHENSIVE METABOLIC [id number] 00:00:00 Test Item Value Reference Range Interpretation Comments GLUCOSE (test code = 2217) 131 MG/DL BUN (test code = 2208) 16 MG/DL CREATININE (test code = 2214) 0.71 MG/DL eGFR AMER. (test code 124 ML/MIN/1.73 = 92969) eGFR NON- AMER. (test 107 ML/MIN/1.73 code = 06367) CALC BUN/CREAT (test code = 23 RATIO [...] (test code = 2219) 33 U/L LIPID [id number] 00:00:00 Test Item Value Reference Range Interpretation Comments CHOLESTEROL (test code = 2210) 201 MG/DL TRIGLYCERIDES (test code = 2232) 1014 MG/DL HDL CHOLESTEROL (test code = 25 MG/DL 2220) CALC LDL CHOL (test code = 2237) NOTE MG/DL RISK RATIO LDL/HDL (test code = (NOTE) RATIO 2238) LIPID [id number] 00:00:00 Test Item Value Reference Range Interpretation Comments CHOLESTEROL (test code = 2210) 201 MG/DL TRIGLYCERIDES (test code = 2232) 1014 MG/DL HDL CHOLESTEROL (test code = 25 MG/DL 2220) CALC LDL CHOL (test code = 2237) NOTE MG/DL RISK RATIO LDL/HDL (test code = (NOTE) RATIO 2238) HEMOGLOBIN [id number] 00:00:00 Test Item Value Reference Range Interpretation Comments HEMOGLOBIN A1c (test code = 48744) 8.5 % HEMOGLOBIN [id number] 00:00:00 Test Item Value Reference Range Interpretation Comments HEMOGLOBIN A1c (test code = 54209) 8.5 % HEMOGLOBIN [id number] 00:00:00 Test Item Value Reference Range Interpretation Comments HEMOGLOBIN A1c (test code = 16284) 8.5 % COMPREHENSIVE METABOLIC [id number] 00:00:00 Test Item Value Reference Range Interpretation Comments GLUCOSE (test code = 2217) 131 MG/DL BUN (test code = 2208) 16 MG/DL CREATININE (test code = 2214) 0.71 MG/DL eGFR AMER. (test code 124 ML/MIN/1.73 = 86532) eGFR NON- AMER. (test 107 ML/MIN/1.73 code = 50876) CALC BUN/CREAT (test code = 23 RATIO [...] code = 2219) 33 U/L COMPREHENSIVE METABOLIC [id number] 00:00:00 Test Item Value Reference Range Interpretation Comments GLUCOSE (test code = 2217) 131 MG/DL BUN (test code = 2208) 16 MG/DL CREATININE (test code = 2214) 0.71 MG/DL eGFR AMER. (test code 124 ML/MIN/1.73 = 52573) eGFR NON- AMER. (test 107 ML/MIN/1.73 code = 79202) CALC BUN/CREAT (test code = 23 RATIO [...] (test code = 2219) 33 U/L LIPID [id number] 00:00:00 Test Item Value Reference Range Interpretation Comments CHOLESTEROL (test code = 2210) 201 MG/DL TRIGLYCERIDES (test code = 2232) 1014 MG/DL HDL CHOLESTEROL (test code = 25 MG/DL 2220) CALC LDL CHOL (test code = 2237) NOTE MG/DL RISK RATIO LDL/HDL (test code = (NOTE) RATIO 2238) LIPID [id number] 00:00:00 Test Item Value Reference Range Interpretation Comments CHOLESTEROL (test code = 2210) 201 MG/DL TRIGLYCERIDES (test code = 2232) 1014 MG/DL HDL CHOLESTEROL (test code = 25 MG/DL 2220) CALC LDL CHOL (test code = 2237) NOTE MG/DL RISK RATIO LDL/HDL (test code = (NOTE) RATIO 2238) HEMOGLOBIN [id number] 00:00:00 Test Item Value Reference Range Interpretation Comments HEMOGLOBIN A1c (test code = 75394) 8.5 % HEMOGLOBIN [id number] 00:00:00 Test Item Value Reference Range Interpretation Comments HEMOGLOBIN A1c (test code = 34921) 8.5 % HEMOGLOBIN [id number] 00:00:00 Test Item Value Reference Range Interpretation Comments HEMOGLOBIN A1c (test code = 37636) 8.5 % COMPREHENSIVE METABOLIC [id number] 00:00:00 Test Item Value Reference Range Interpretation Comments GLUCOSE (test code = 2217) 131 MG/DL BUN (test code = 2208) 16 MG/DL CREATININE (test code = 2214) 0.71 MG/DL eGFR AMER. (test code 124 ML/MIN/1.73 = 84509) eGFR NON- AMER. (test 107 ML/MIN/1.73 code = 84805) CALC BUN/CREAT (test code = 23 RATIO [...] code = 2219) 33 U/L COMPREHENSIVE METABOLIC [id number] 00:00:00 Test Item Value Reference Range Interpretation Comments GLUCOSE (test code = 2217) 131 MG/DL BUN (test code = 2208) 16 MG/DL CREATININE (test code = 2214) 0.71 MG/DL eGFR AMER. (test code 124 ML/MIN/1.73 = 22435) eGFR NON- AMER. (test 107 ML/MIN/1.73 code = 31941) CALC BUN/CREAT (test code = 23 RATIO [...] (test code = 2219) 33 U/L LIPID [id number] 00:00:00 Test Item Value Reference Range Interpretation Comments CHOLESTEROL (test code = 2210) 201 MG/DL TRIGLYCERIDES (test code = 2232) 1014 MG/DL HDL CHOLESTEROL (test code = 25 MG/DL 2220) CALC LDL CHOL (test code = 2237) NOTE MG/DL RISK RATIO LDL/HDL (test code = (NOTE) RATIO 2238) LIPID [id number] 00:00:00 Test Item Value Reference Range Interpretation Comments CHOLESTEROL (test code = 2210) 201 MG/DL TRIGLYCERIDES (test code = 2232) 1014 MG/DL HDL CHOLESTEROL (test code = 25 MG/DL 2220) CALC LDL CHOL (test code = 2237) NOTE MG/DL RISK RATIO LDL/HDL (test code = (NOTE) RATIO 2238) CULTURE, HERPES [id number] 00:00:00 Test Item Value Reference Range Interpretation Comments SPECIMEN SOURCE (test code = 50788) LABIA HERPES CULTURE (test code = 3533) NEGATIVE CULTURE, HERPES [id number] 00:00:00 Test Item Value Reference Range Interpretation Comments SPECIMEN SOURCE (test code = 86045) LABIA HERPES CULTURE (test code = 3533) NEGATIVE CULTURE, HERPES [id number] 00:00:00 Test Item Value Reference Range Interpretation Comments SPECIMEN SOURCE (test code = 49398) LABIA HERPES CULTURE (test code = 3533) NEGATIVE CULTURE, HERPES [id number] 00:00:00 Test Item Value Reference Range Interpretation Comments SPECIMEN SOURCE (test code = 88444) LABIA HERPES CULTURE (test code = 3533) NEGATIVE CULTURE, HERPES [id number] 00:00:00 Test Item Value Reference Range Interpretation Comments SPECIMEN SOURCE (test code = 88217) LABIA HERPES CULTURE (test code = 3533) NEGATIVE CULTURE, HERPES [id number] 00:00:00 Test Item Value Reference Range Interpretation Comments SPECIMEN SOURCE (test code = 24548) LABIA HERPES CULTURE (test code = 3533) NEGATIVE CULTURE, HERPES [id number] 00:00:00 Test Item Value Reference Range Interpretation Comments SPECIMEN SOURCE (test code = 41569) LABIA HERPES CULTURE (test code = 3533) NEGATIVE CULTURE, HERPES [id number] 00:00:00 Test Item Value Reference Range Interpretation Comments SPECIMEN SOURCE (test code = 09504) LABIA HERPES CULTURE (test code = 3533) NEGATIVE CULTURE, HERPES [id number] 00:00:00 Test Item Value Reference Range Interpretation Comments SPECIMEN SOURCE (test code = 21303) LABIA HERPES CULTURE (test code = 3533) NEGATIVE CULTURE, HERPES [id number] 00:00:00 Test Item Value Reference Range Interpretation Comments SPECIMEN SOURCE (test code = 70847) LABIA HERPES CULTURE (test code = 3533) NEGATIVE CULTURE, HERPES [id number] 00:00:00 Test Item Value Reference Range Interpretation Comments SPECIMEN SOURCE (test code = 68953) LABIA HERPES CULTURE (test code = 3533) NEGATIVE CULTURE, HERPES [id number] 00:00:00 Test Item Value Reference Range Interpretation Comments SPECIMEN SOURCE (test code = 55980) LABIA HERPES CULTURE (test code = 3533) NEGATIVE CULTURE, HERPES [id number] 00:00:00 Test Item Value Reference Range Interpretation Comments SPECIMEN SOURCE (test code = 76279) LABIA HERPES CULTURE (test code = 3533) NEGATIVE CULTURE, HERPES [id number] 00:00:00 Test Item Value Reference Range Interpretation Comments SPECIMEN SOURCE (test code = 70281) LABIA HERPES CULTURE (test code = 3533) NEGATIVE CULTURE, HERPES [id number] 00:00:00 Test Item Value Reference Range Interpretation Comments SPECIMEN SOURCE (test code = 17561) LABIA HERPES CULTURE (test code = 3533) NEGATIVE CULTURE, HERPES [id number] 00:00:00 Test Item Value Reference Range Interpretation Comments SPECIMEN SOURCE (test code = 82419) LABIA HERPES CULTURE (test code = 3533) NEGATIVE CULTURE, HERPES [id number] 00:00:00 Test Item Value Reference Range Interpretation Comments SPECIMEN SOURCE (test code = 32205) LABIA HERPES CULTURE (test code = 3533) NEGATIVE CULTURE, HERPES [id number] 00:00:00 Test Item Value Reference Range Interpretation Comments SPECIMEN SOURCE (test code = 07381) LABIA HERPES CULTURE (test code = 3533) NEGATIVE CULTURE, HERPES [id number] 00:00:00 Test Item Value Reference Range Interpretation Comments SPECIMEN SOURCE (test code = 48466) LABIA HERPES CULTURE (test code = 3533) NEGATIVE CULTURE, HERPES [id number] 00:00:00 Test Item Value Reference Range Interpretation Comments SPECIMEN SOURCE (test code = 87085) LABIA HERPES CULTURE (test code = 3533) NEGATIVE CULTURE, HERPES [id number] 00:00:00 Test Item Value Reference Range Interpretation Comments SPECIMEN SOURCE (test code = 89290) LABIA HERPES CULTURE (test code = 3533) NEGATIVE VAGINAL PATHOGENS DNA [id number] 00:00:00 Test Item Value Reference Range Interpretation Comments ANDIE SPECIES (test code = 35045) NEGATIVE G. VAGINALIS (test code = 33055) NEGATIVE T. VAGINALIS (test code = 77623) NEGATIVE VAGINAL PATHOGENS DNA [id number] 00:00:00 Test Item Value Reference Range Interpretation Comments ANDIE SPECIES (test code = 00228) NEGATIVE G. VAGINALIS (test code = 38987) NEGATIVE T. VAGINALIS (test code = 57665) NEGATIVE VAGINAL PATHOGENS DNA [id number] 00:00:00 Test Item Value Reference Range Interpretation Comments ANDIE SPECIES (test code = 34989) NEGATIVE G. VAGINALIS (test code = 70798) NEGATIVE T. VAGINALIS (test code = 37836) NEGATIVE VAGINAL PATHOGENS DNA [id number] 00:00:00 Test Item Value Reference Range Interpretation Comments ANDIE SPECIES (test code = 27745) NEGATIVE G. VAGINALIS (test code = 74051) NEGATIVE T. VAGINALIS (test code = 95656) NEGATIVE VAGINAL PATHOGENS DNA [id number] 00:00:00 Test Item Value Reference Range Interpretation Comments ANDIE SPECIES (test code = 04575) NEGATIVE G. VAGINALIS (test code = 33235) NEGATIVE T. VAGINALIS (test code = 43104) NEGATIVE VAGINAL PATHOGENS DNA [id number] 00:00:00 Test Item Value Reference Range Interpretation Comments ANDIE SPECIES (test code = 82409) NEGATIVE G. VAGINALIS (test code = 17739) NEGATIVE T. VAGINALIS (test code = 25730) NEGATIVE VAGINAL PATHOGENS DNA [id number] 00:00:00 Test Item Value Reference Range Interpretation Comments ANDIE SPECIES (test code = 16917) NEGATIVE G. VAGINALIS (test code = 25892) NEGATIVE T. VAGINALIS (test code = 29514) NEGATIVE VAGINAL PATHOGENS DNA [id number] 00:00:00 Test Item Value Reference Range Interpretation Comments ANDIE SPECIES (test code = 49740) NEGATIVE G. VAGINALIS (test code = 08730) NEGATIVE T. VAGINALIS (test code = 42926) NEGATIVE VAGINAL PATHOGENS DNA [id number] 00:00:00 Test Item Value Reference Range Interpretation Comments ANDIE SPECIES (test code = 30867) NEGATIVE G. VAGINALIS (test code = 23252) NEGATIVE T. VAGINALIS (test code = 87439) NEGATIVE VAGINAL PATHOGENS DNA [id number] 00:00:00 Test Item Value Reference Range Interpretation Comments ANDIE SPECIES (test code = 19706) NEGATIVE G. VAGINALIS (test code = 18261) NEGATIVE T. VAGINALIS (test code = 84890) NEGATIVE VAGINAL PATHOGENS DNA [id number] 00:00:00 Test Item Value Reference Range Interpretation Comments ANDIE SPECIES (test code = 97509) NEGATIVE G. VAGINALIS (test code = 75283) NEGATIVE T. VAGINALIS (test code = 94677) NEGATIVE VAGINAL PATHOGENS DNA [id number] 00:00:00 Test Item Value Reference Range Interpretation Comments ANDIE SPECIES (test code = 24669) NEGATIVE G. VAGINALIS (test code = 82895) NEGATIVE T. VAGINALIS (test code = 18920) NEGATIVE VAGINAL PATHOGENS DNA [id number] 00:00:00 Test Item Value Reference Range Interpretation Comments ANDIE SPECIES (test code = 22258) NEGATIVE G. VAGINALIS (test code = 48070) NEGATIVE T. VAGINALIS (test code = 10903) NEGATIVE VAGINAL PATHOGENS DNA [id number] 00:00:00 Test Item Value Reference Range Interpretation Comments ANDIE SPECIES (test code = 19403) NEGATIVE G. VAGINALIS (test code = 07913) NEGATIVE T. VAGINALIS (test code = 65413) NEGATIVE VAGINAL PATHOGENS DNA [id number] 00:00:00 Test Item Value Reference Range Interpretation Comments ANDIE SPECIES (test code = 26613) NEGATIVE G. VAGINALIS (test code = 50030) NEGATIVE T. VAGINALIS (test code = 05988) NEGATIVE VAGINAL PATHOGENS DNA [id number] 00:00:00 Test Item Value Reference Range Interpretation Comments ANDIE SPECIES (test code = 87606) NEGATIVE G. VAGINALIS (test code = 93358) NEGATIVE T. VAGINALIS (test code = 86955) NEGATIVE VAGINAL PATHOGENS DNA [id number] 00:00:00 Test Item Value Reference Range Interpretation Comments ANDIE SPECIES (test code = 18392) NEGATIVE G. VAGINALIS (test code = 27977) NEGATIVE T. VAGINALIS (test code = 01669) NEGATIVE VAGINAL PATHOGENS DNA [id number] 00:00:00 Test Item Value Reference Range Interpretation Comments ANDIE SPECIES (test code = 26728) NEGATIVE G. VAGINALIS (test code = 22250) NEGATIVE T. VAGINALIS (test code = 55593) NEGATIVE VAGINAL PATHOGENS DNA [id number] 00:00:00 Test Item Value Reference Range Interpretation Comments ANDIE SPECIES (test code = 47136) NEGATIVE G. VAGINALIS (test code = 04299) NEGATIVE T. VAGINALIS (test code = 41126) NEGATIVE VAGINAL PATHOGENS DNA [id number] 00:00:00 Test Item Value Reference Range Interpretation Comments ANDIE SPECIES (test code = 70220) NEGATIVE G. VAGINALIS (test code = 45652) NEGATIVE T. VAGINALIS (test code = 62593) NEGATIVE VAGINAL PATHOGENS DNA [id number] 00:00:00 Test Item Value Reference Range Interpretation Comments ANDIE SPECIES (test code = 14086) NEGATIVE G. VAGINALIS (test code = 84322) NEGATIVE T. VAGINALIS (test code = 94322) NEGATIVE COMPREHENSIVE METABOLIC [id number] 00:00:00 Test Item Value Reference Range Interpretation Comments GLUCOSE (test code = 2217) 138 MG/DL BUN (test code = 2208) 13 MG/DL CREATININE (test code = 2214) 0.50 MG/DL eGFR AMER. (test code 141 ML/MIN/1.73 = 07916) eGFR NON- AMER. (test 122 ML/MIN/1.73 code = 70412) CALC BUN/CREAT (test code = 26 RATIO [...] code = 2219) 41 U/L COMPREHENSIVE METABOLIC [id number] 00:00:00 Test Item Value Reference Range Interpretation Comments GLUCOSE (test code = 2217) 138 MG/DL BUN (test code = 2208) 13 MG/DL CREATININE (test code = 2214) 0.50 MG/DL eGFR AMER. (test code 141 ML/MIN/1.73 = 29759) eGFR NON- AMER. (test 122 ML/MIN/1.73 code = 47285) CALC BUN/CREAT (test code = 26 RATIO [...] (test code = 2219) 41 U/L LIPID [id number] 00:00:00 Test Item Value Reference Range Interpretation Comments CHOLESTEROL (test code = 2210) 359 MG/DL TRIGLYCERIDES (test code = 2232) 1659 MG/DL HDL CHOLESTEROL (test code = 15 MG/DL 2220) CALC LDL CHOL (test code = 2237) NOTE MG/DL RISK RATIO LDL/HDL (test code = (NOTE) RATIO 2238) LIPID [id number] 00:00:00 Test Item Value Reference Range Interpretation Comments CHOLESTEROL (test code = 2210) 359 MG/DL TRIGLYCERIDES (test code = 2232) 1659 MG/DL HDL CHOLESTEROL (test code = 15 MG/DL 2220) CALC LDL CHOL (test code = 2237) NOTE MG/DL RISK RATIO LDL/HDL (test code = (NOTE) RATIO 2238) CBC W/AUTO [id number] 00:00:00 Test Item Value Reference Range Interpretation [...] code = 1015) 287 K/UL CBC W/AUTO [id number] 00:00:00 Test Item Value Reference Range Interpretation [...] code = 1015) 287 K/UL CBC W/AUTO [id number] 00:00:00 Test Item Value Reference Range Interpretation [...] (test code = 1015) 287 K/UL HEMOGLOBIN [id number] 00:00:00 Test Item Value Reference Range Interpretation Comments HEMOGLOBIN A1c (test code = 07437) 9.8 % HEMOGLOBIN [id number] 00:00:00 Test Item Value Reference Range Interpretation Comments HEMOGLOBIN A1c (test code = 63008) 9.8 % HEMOGLOBIN [id number] 00:00:00 Test Item Value Reference Range Interpretation Comments HEMOGLOBIN A1c (test code = 40999) 9.8 % [id number] 00:00:00 Test Item Value Reference Range Interpretation Comments TSH (test code = 2821) 2.110 UIU/ML [id number] 00:00:00 Test Item Value Reference Range Interpretation Comments TSH (test code = 2821) 2.110 UIU/ML [id number] 00:00:00 Test Item Value Reference Range Interpretation Comments TSH (test code = 2821) 2.110 UIU/ML COMPREHENSIVE METABOLIC [id number] 00:00:00 Test Item Value Reference Range Interpretation Comments GLUCOSE (test code = 2217) 138 MG/DL BUN (test code = 2208) 13 MG/DL CREATININE (test code = 2214) 0.50 MG/DL eGFR AMER. (test code 141 ML/MIN/1.73 = 93909) eGFR NON- AMER. (test 122 ML/MIN/1.73 code = 84343) CALC BUN/CREAT (test code = 26 RATIO [...] code = 2219) 41 U/L COMPREHENSIVE METABOLIC [id number] 00:00:00 Test Item Value Reference Range Interpretation Comments GLUCOSE (test code = 2217) 138 MG/DL BUN (test code = 2208) 13 MG/DL CREATININE (test code = 2214) 0.50 MG/DL eGFR AMER. (test code 141 ML/MIN/1.73 = 11982) eGFR NON- AMER. (test 122 ML/MIN/1.73 code = 21125) CALC BUN/CREAT (test code = 26 RATIO [...] (test code = 2219) 41 U/L LIPID [id number] 00:00:00 Test Item Value Reference Range Interpretation Comments CHOLESTEROL (test code = 2210) 359 MG/DL TRIGLYCERIDES (test code = 2232) 1659 MG/DL HDL CHOLESTEROL (test code = 15 MG/DL 2220) CALC LDL CHOL (test code = 2237) NOTE MG/DL RISK RATIO LDL/HDL (test code = (NOTE) RATIO 2238) LIPID [id number] 00:00:00 Test Item Value Reference Range Interpretation Comments CHOLESTEROL (test code = 2210) 359 MG/DL TRIGLYCERIDES (test code = 2232) 1659 MG/DL HDL CHOLESTEROL (test code = 15 MG/DL 2220) CALC LDL CHOL (test code = 2237) NOTE MG/DL RISK RATIO LDL/HDL (test code = (NOTE) RATIO 2238) CBC W/AUTO [id number] 00:00:00 Test Item Value Reference Range Interpretation [...] code = 1015) 287 K/UL CBC W/AUTO [id number] 00:00:00 Test Item Value Reference Range Interpretation [...] code = 1015) 287 K/UL CBC W/AUTO [id number] 00:00:00 Test Item Value Reference Range Interpretation [...] (test code = 1015) 287 K/UL HEMOGLOBIN [id number] 00:00:00 Test Item Value Reference Range Interpretation Comments HEMOGLOBIN A1c (test code = 94820) 9.8 % HEMOGLOBIN [id number] 00:00:00 Test Item Value Reference Range Interpretation Comments HEMOGLOBIN A1c (test code = 81662) 9.8 % HEMOGLOBIN [id number] 00:00:00 Test Item Value Reference Range Interpretation Comments HEMOGLOBIN A1c (test code = 76499) 9.8 % [id number] 00:00:00 Test Item Value Reference Range Interpretation Comments TSH (test code = 2821) 2.110 UIU/ML [id number] 00:00:00 Test Item Value Reference Range Interpretation Comments TSH (test code = 2821) 2.110 UIU/ML [id number] 00:00:00 Test Item Value Reference Range Interpretation Comments TSH (test code = 2821) 2.110 UIU/ML COMPREHENSIVE METABOLIC [id number] 00:00:00 Test Item Value Reference Range Interpretation Comments GLUCOSE (test code = 2217) 138 MG/DL BUN (test code = 2208) 13 MG/DL CREATININE (test code = 2214) 0.50 MG/DL eGFR AMER. (test code 141 ML/MIN/1.73 = 55114) eGFR NON- AMER. (test 122 ML/MIN/1.73 code = 22534) CALC BUN/CREAT (test code = 26 RATIO [...] code = 2219) 41 U/L COMPREHENSIVE METABOLIC [id number] 00:00:00 Test Item Value Reference Range Interpretation Comments GLUCOSE (test code = 2217) 138 MG/DL BUN (test code = 2208) 13 MG/DL CREATININE (test code = 2214) 0.50 MG/DL eGFR AMER. (test code 141 ML/MIN/1.73 = 05984) eGFR NON- AMER. (test 122 ML/MIN/1.73 code = 74587) CALC BUN/CREAT (test code = 26 RATIO [...] (test code = 2219) 41 U/L LIPID [id number] 00:00:00 Test Item Value Reference Range Interpretation Comments CHOLESTEROL (test code = 2210) 359 MG/DL TRIGLYCERIDES (test code = 2232) 1659 MG/DL HDL CHOLESTEROL (test code = 15 MG/DL 2220) CALC LDL CHOL (test code = 2237) NOTE MG/DL RISK RATIO LDL/HDL (test code = (NOTE) RATIO 2238) LIPID [id number] 00:00:00 Test Item Value Reference Range Interpretation Comments CHOLESTEROL (test code = 2210) 359 MG/DL TRIGLYCERIDES (test code = 2232) 1659 MG/DL HDL CHOLESTEROL (test code = 15 MG/DL 2220) CALC LDL CHOL (test code = 2237) NOTE MG/DL RISK RATIO LDL/HDL (test code = (NOTE) RATIO 2238) CBC W/AUTO [id number] 00:00:00 Test Item Value Reference Range Interpretation [...] code = 1015) 287 K/UL CBC W/AUTO [id number] 00:00:00 Test Item Value Reference Range Interpretation [...] code = 1015) 287 K/UL CBC W/AUTO [id number] 00:00:00 Test Item Value Reference Range Interpretation [...] (test code = 1015) 287 K/UL HEMOGLOBIN [id number] 00:00:00 Test Item Value Reference Range Interpretation Comments HEMOGLOBIN A1c (test code = 73481) 9.8 % HEMOGLOBIN [id number] 00:00:00 Test Item Value Reference Range Interpretation Comments HEMOGLOBIN A1c (test code = 47173) 9.8 % HEMOGLOBIN [id number] 00:00:00 Test Item Value Reference Range Interpretation Comments HEMOGLOBIN A1c (test code = 26157) 9.8 % [id number] 00:00:00 Test Item Value Reference Range Interpretation Comments TSH (test code = 2821) 2.110 UIU/ML [id number] 00:00:00 Test Item Value Reference Range Interpretation Comments TSH (test code = 2821) 2.110 UIU/ML [id number] 00:00:00 Test Item Value Reference Range Interpretation Comments TSH (test code = 2821) 2.110 UIU/ML COMPREHENSIVE METABOLIC [id number] 00:00:00 Test Item Value Reference Range Interpretation Comments GLUCOSE (test code = 2217) 138 MG/DL BUN (test code = 2208) 13 MG/DL CREATININE (test code = 2214) 0.50 MG/DL eGFR AMER. (test code 141 ML/MIN/1.73 = 36275) eGFR NON- AMER. (test 122 ML/MIN/1.73 code = 22725) CALC BUN/CREAT (test code = 26 RATIO [...] code = 2219) 41 U/L COMPREHENSIVE METABOLIC [id number] 00:00:00 Test Item Value Reference Range Interpretation Comments GLUCOSE (test code = 2217) 138 MG/DL BUN (test code = 2208) 13 MG/DL CREATININE (test code = 2214) 0.50 MG/DL eGFR AMER. (test code 141 ML/MIN/1.73 = 82824) eGFR NON- AMER. (test 122 ML/MIN/1.73 code = 89063) CALC BUN/CREAT (test code = 26 RATIO [...] (test code = 2219) 41 U/L LIPID [id number] 00:00:00 Test Item Value Reference Range Interpretation Comments CHOLESTEROL (test code = 2210) 359 MG/DL TRIGLYCERIDES (test code = 2232) 1659 MG/DL HDL CHOLESTEROL (test code = 15 MG/DL 2220) CALC LDL CHOL (test code = 2237) NOTE MG/DL RISK RATIO LDL/HDL (test code = (NOTE) RATIO 2238) LIPID [id number] 00:00:00 Test Item Value Reference Range Interpretation Comments CHOLESTEROL (test code = 2210) 359 MG/DL TRIGLYCERIDES (test code = 2232) 1659 MG/DL HDL CHOLESTEROL (test code = 15 MG/DL 2220) CALC LDL CHOL (test code = 2237) NOTE MG/DL RISK RATIO LDL/HDL (test code = (NOTE) RATIO 2238) CBC W/AUTO [id number] 00:00:00 Test Item Value Reference Range Interpretation [...] code = 1015) 287 K/UL CBC W/AUTO [id number] 00:00:00 Test Item Value Reference Range Interpretation [...] code = 1015) 287 K/UL CBC W/AUTO [id number] 00:00:00 Test Item Value Reference Range Interpretation [...] (test code = 1015) 287 K/UL HEMOGLOBIN [id number] 00:00:00 Test Item Value Reference Range Interpretation Comments HEMOGLOBIN A1c (test code = 48311) 9.8 % HEMOGLOBIN [id number] 00:00:00 Test Item Value Reference Range Interpretation Comments HEMOGLOBIN A1c (test code = 82643) 9.8 % HEMOGLOBIN [id number] 00:00:00 Test Item Value Reference Range Interpretation Comments HEMOGLOBIN A1c (test code = 70371) 9.8 % [id number] 00:00:00 Test Item Value Reference Range Interpretation Comments TSH (test code = 2821) 2.110 UIU/ML [id number] 00:00:00 Test Item Value Reference Range Interpretation Comments TSH (test code = 2821) 2.110 UIU/ML [id number] 00:00:00 Test Item Value Reference Range Interpretation Comments TSH (test code = 2821) 2.110 UIU/ML COMPREHENSIVE METABOLIC [id number] 00:00:00 Test Item Value Reference Range Interpretation Comments GLUCOSE (test code = 2217) 138 MG/DL BUN (test code = 2208) 13 MG/DL CREATININE (test code = 2214) 0.50 MG/DL eGFR AMER. (test code 141 ML/MIN/1.73 = 22726) eGFR NON- AMER. (test 122 ML/MIN/1.73 code = 61791) CALC BUN/CREAT (test code = 26 RATIO [...] code = 2219) 41 U/L COMPREHENSIVE METABOLIC [id number] 00:00:00 Test Item Value Reference Range Interpretation Comments GLUCOSE (test code = 2217) 138 MG/DL BUN (test code = 2208) 13 MG/DL CREATININE (test code = 2214) 0.50 MG/DL eGFR AMER. (test code 141 ML/MIN/1.73 = 40598) eGFR NON- AMER. (test 122 ML/MIN/1.73 code = 83544) CALC BUN/CREAT (test code = 26 RATIO [...] (test code = 2219) 41 U/L LIPID [id number] 00:00:00 Test Item Value Reference Range Interpretation Comments CHOLESTEROL (test code = 2210) 359 MG/DL TRIGLYCERIDES (test code = 2232) 1659 MG/DL HDL CHOLESTEROL (test code = 15 MG/DL 2220) CALC LDL CHOL (test code = 2237) NOTE MG/DL RISK RATIO LDL/HDL (test code = (NOTE) RATIO 2238) LIPID [id number] 00:00:00 Test Item Value Reference Range Interpretation Comments CHOLESTEROL (test code = 2210) 359 MG/DL TRIGLYCERIDES (test code = 2232) 1659 MG/DL HDL CHOLESTEROL (test code = 15 MG/DL 2220) CALC LDL CHOL (test code = 2237) NOTE MG/DL RISK RATIO LDL/HDL (test code = (NOTE) RATIO 2238) CBC W/AUTO [id number] 00:00:00 Test Item Value Reference Range Interpretation [...] code = 1015) 287 K/UL CBC W/AUTO [id number] 00:00:00 Test Item Value Reference Range Interpretation [...] code = 1015) 287 K/UL CBC W/AUTO [id number] 00:00:00 Test Item Value Reference Range Interpretation [...] (test code = 1015) 287 K/UL HEMOGLOBIN [id number] 00:00:00 Test Item Value Reference Range Interpretation Comments HEMOGLOBIN A1c (test code = 98316) 9.8 % HEMOGLOBIN [id number] 00:00:00 Test Item Value Reference Range Interpretation Comments HEMOGLOBIN A1c (test code = 14763) 9.8 % HEMOGLOBIN [id number] 00:00:00 Test Item Value Reference Range Interpretation Comments HEMOGLOBIN A1c (test code = 46009) 9.8 % [id number] 00:00:00 Test Item Value Reference Range Interpretation Comments TSH (test code = 2821) 2.110 UIU/ML [id number] 00:00:00 Test Item Value Reference Range Interpretation Comments TSH (test code = 2821) 2.110 UIU/ML [id number] 00:00:00 Test Item Value Reference Range Interpretation Comments TSH (test code = 2821) 2.110 UIU/ML COMPREHENSIVE METABOLIC [id number] 00:00:00 Test Item Value Reference Range Interpretation Comments GLUCOSE (test code = 2217) 138 MG/DL BUN (test code = 2208) 13 MG/DL CREATININE (test code = 2214) 0.50 MG/DL eGFR AMER. (test code 141 ML/MIN/1.73 = 06791) eGFR NON- AMER. (test 122 ML/MIN/1.73 code = 26615) CALC BUN/CREAT (test code = 26 RATIO [...] code = 2219) 41 U/L COMPREHENSIVE METABOLIC [id number] 00:00:00 Test Item Value Reference Range Interpretation Comments GLUCOSE (test code = 2217) 138 MG/DL BUN (test code = 2208) 13 MG/DL CREATININE (test code = 2214) 0.50 MG/DL eGFR AMER. (test code 141 ML/MIN/1.73 = 24582) eGFR NON- AMER. (test 122 ML/MIN/1.73 code = 93378) CALC BUN/CREAT (test code = 26 RATIO [...] (test code = 2219) 41 U/L LIPID [id number] 00:00:00 Test Item Value Reference Range Interpretation Comments CHOLESTEROL (test code = 2210) 359 MG/DL TRIGLYCERIDES (test code = 2232) 1659 MG/DL HDL CHOLESTEROL (test code = 15 MG/DL 2220) CALC LDL CHOL (test code = 2237) NOTE MG/DL RISK RATIO LDL/HDL (test code = (NOTE) RATIO 2238) LIPID [id number] 00:00:00 Test Item Value Reference Range Interpretation Comments CHOLESTEROL (test code = 2210) 359 MG/DL TRIGLYCERIDES (test code = 2232) 1659 MG/DL HDL CHOLESTEROL (test code = 15 MG/DL 2220) CALC LDL CHOL (test code = 2237) NOTE MG/DL RISK RATIO LDL/HDL (test code = (NOTE) RATIO 2238) CBC W/AUTO [id number] 00:00:00 Test Item Value Reference Range Interpretation [...] code = 1015) 287 K/UL CBC W/AUTO [id number] 00:00:00 Test Item Value Reference Range Interpretation [...] code = 1015) 287 K/UL CBC W/AUTO [id number] 00:00:00 Test Item Value Reference Range Interpretation [...] (test code = 1015) 287 K/UL HEMOGLOBIN [id number] 00:00:00 Test Item Value Reference Range Interpretation Comments HEMOGLOBIN A1c (test code = 18629) 9.8 % HEMOGLOBIN [id number] 00:00:00 Test Item Value Reference Range Interpretation Comments HEMOGLOBIN A1c (test code = 99835) 9.8 % HEMOGLOBIN [id number] 00:00:00 Test Item Value Reference Range Interpretation Comments HEMOGLOBIN A1c (test code = 95988) 9.8 % [id number] 00:00:00 Test Item Value Reference Range Interpretation Comments TSH (test code = 2821) 2.110 UIU/ML [id number] 00:00:00 Test Item Value Reference Range Interpretation Comments TSH (test code = 2821) 2.110 UIU/ML [id number] 00:00:00 Test Item Value Reference Range Interpretation Comments TSH (test code = 2821) 2.110 UIU/ML COMPREHENSIVE METABOLIC [id number] 00:00:00 Test Item Value Reference Range Interpretation Comments GLUCOSE (test code = 2217) 138 MG/DL BUN (test code = 2208) 13 MG/DL CREATININE (test code = 2214) 0.50 MG/DL eGFR AMER. (test code 141 ML/MIN/1.73 = 78659) eGFR NON- AMER. (test 122 ML/MIN/1.73 code = 46692) CALC BUN/CREAT (test code = 26 RATIO [...] code = 2219) 41 U/L COMPREHENSIVE METABOLIC [id number] 00:00:00 Test Item Value Reference Range Interpretation Comments GLUCOSE (test code = 2217) 138 MG/DL BUN (test code = 2208) 13 MG/DL CREATININE (test code = 2214) 0.50 MG/DL eGFR AMER. (test code 141 ML/MIN/1.73 = 77268) eGFR NON- AMER. (test 122 ML/MIN/1.73 code = 40810) CALC BUN/CREAT (test code = 26 RATIO [...] (test code = 2219) 41 U/L LIPID [id number] 00:00:00 Test Item Value Reference Range Interpretation Comments CHOLESTEROL (test code = 2210) 359 MG/DL TRIGLYCERIDES (test code = 2232) 1659 MG/DL HDL CHOLESTEROL (test code = 15 MG/DL 2220) CALC LDL CHOL (test code = 2237) NOTE MG/DL RISK RATIO LDL/HDL (test code = (NOTE) RATIO 2238) LIPID [id number] 00:00:00 Test Item Value Reference Range Interpretation Comments CHOLESTEROL (test code = 2210) 359 MG/DL TRIGLYCERIDES (test code = 2232) 1659 MG/DL HDL CHOLESTEROL (test code = 15 MG/DL 2220) CALC LDL CHOL (test code = 2237) NOTE MG/DL RISK RATIO LDL/HDL (test code = (NOTE) RATIO 2238) CBC W/AUTO [id number] 00:00:00 Test Item Value Reference Range Interpretation [...] code = 1015) 287 K/UL CBC W/AUTO [id number] 00:00:00 Test Item Value Reference Range Interpretation [...] code = 1015) 287 K/UL CBC W/AUTO [id number] 00:00:00 Test Item Value Reference Range Interpretation [...] (test code = 1015) 287 K/UL HEMOGLOBIN [id number] 00:00:00 Test Item Value Reference Range Interpretation Comments HEMOGLOBIN A1c (test code = 36504) 9.8 % HEMOGLOBIN [id number] 00:00:00 Test Item Value Reference Range Interpretation Comments HEMOGLOBIN A1c (test code = 77926) 9.8 % HEMOGLOBIN [id number] 00:00:00 Test Item Value Reference Range Interpretation Comments HEMOGLOBIN A1c (test code = 22328) 9.8 % [id number] 00:00:00 Test Item Value Reference Range Interpretation Comments TSH (test code = 2821) 2.110 UIU/ML [id number] 00:00:00 Test Item Value Reference Range Interpretation Comments TSH (test code = 2821) 2.110 UIU/ML [id number] 00:00:00 Test Item Value Reference Range Interpretation Comments TSH (test code = 2821) 2.110 UIU/ML COMPREHENSIVE METABOLIC [id number] 00:00:00 Test Item Value Reference Range Interpretation Comments GLUCOSE (test code = 2217) 138 MG/DL BUN (test code = 2208) 13 MG/DL CREATININE (test code = 2214) 0.50 MG/DL eGFR AMER. (test code 141 ML/MIN/1.73 = 75242) eGFR NON- AMER. (test 122 ML/MIN/1.73 code = 04779) CALC BUN/CREAT (test code = 26 RATIO [...] (test code = 2219) 41 U/L LIPID [id number] 00:00:00 Test Item Value Reference Range Interpretation Comments CHOLESTEROL (test code = 2210) 359 MG/DL TRIGLYCERIDES (test code = 2232) 1659 MG/DL HDL CHOLESTEROL (test code = 15 MG/DL 2220) CALC LDL CHOL (test code = 2237) NOTE MG/DL RISK RATIO LDL/HDL (test code = (NOTE) RATIO 2238) CBC W/AUTO [id number] 00:00:00 Test Item Value Reference Range Interpretation [...] code = 1015) 287 K/UL CBC W/AUTO [id number] 00:00:00 Test Item Value Reference Range Interpretation [...] (test code = 1015) 287 K/UL HEMOGLOBIN [id number] 00:00:00 Test Item Value Reference Range Interpretation Comments HEMOGLOBIN A1c (test code = 43529) 9.8 % HEMOGLOBIN [id number] 00:00:00 Test Item Value Reference Range Interpretation Comments HEMOGLOBIN A1c (test code = 34542) 9.8 % COMPREHENSIVE METABOLIC [id number] 00:00:00 Test Item Value Reference Range Interpretation Comments GLUCOSE (test code = 2217) 138 MG/DL BUN (test code = 2208) 13 MG/DL CREATININE (test code = 2214) 0.50 MG/DL eGFR AMER. (test code 141 ML/MIN/1.73 = 34544) eGFR NON- AMER. (test 122 ML/MIN/1.73 code = 08764) CALC BUN/CREAT (test code = 26 RATIO [...] code = 2219) 41 U/L COMPREHENSIVE METABOLIC [id number] 00:00:00 Test Item Value Reference Range Interpretation Comments GLUCOSE (test code = 2217) 138 MG/DL BUN (test code = 2208) 13 MG/DL CREATININE (test code = 2214) 0.50 MG/DL eGFR AMER. (test code 141 ML/MIN/1.73 = 11166) eGFR NON- AMER. (test 122 ML/MIN/1.73 code = 62403) CALC BUN/CREAT (test code = 26 RATIO [...] (test code = 2219) 41 U/L LIPID [id number] 00:00:00 Test Item Value Reference Range Interpretation Comments CHOLESTEROL (test code = 2210) 359 MG/DL TRIGLYCERIDES (test code = 2232) 1659 MG/DL HDL CHOLESTEROL (test code = 15 MG/DL 2220) CALC LDL CHOL (test code = 2237) NOTE MG/DL RISK RATIO LDL/HDL (test code = (NOTE) RATIO 2238) LIPID [id number] 00:00:00 Test Item Value Reference Range Interpretation Comments CHOLESTEROL (test code = 2210) 359 MG/DL TRIGLYCERIDES (test code = 2232) 1659 MG/DL HDL CHOLESTEROL (test code = 15 MG/DL 2220) CALC LDL CHOL (test code = 2237) NOTE MG/DL RISK RATIO LDL/HDL (test code = (NOTE) RATIO 2238) [id number] 00:00:00 Test Item Value Reference Range Interpretation Comments TSH (test code = 2821) 2.110 UIU/ML CBC W/AUTO [id number] 00:00:00 Test Item Value Reference Range Interpretation [...] code = 1015) 287 K/UL CBC W/AUTO [id number] 00:00:00 Test Item Value Reference Range Interpretation [...] code = 1015) 287 K/UL CBC W/AUTO [id number] 00:00:00 Test Item Value Reference Range Interpretation [...] (test code = 1015) 287 K/UL HEMOGLOBIN [id number] 00:00:00 Test Item Value Reference Range Interpretation Comments HEMOGLOBIN A1c (test code = 31568) 9.8 % HEMOGLOBIN [id number] 00:00:00 Test Item Value Reference Range Interpretation Comments HEMOGLOBIN A1c (test code = 30728) 9.8 % HEMOGLOBIN [id number] 00:00:00 Test Item Value Reference Range Interpretation Comments HEMOGLOBIN A1c (test code = 60762) 9.8 % [id number] 00:00:00 Test Item Value Reference Range Interpretation Comments TSH (test code = 2821) 2.110 UIU/ML [id number] 00:00:00 Test Item Value Reference Range Interpretation Comments TSH (test code = 2821) 2.110 UIU/ML [id number] 00:00:00 Test Item Value Reference Range Interpretation Comments TSH (test code = 2821) 2.110 UIU/ML [id number] 00:00:00 Test Item Value Reference Range Interpretation Comments TSH (test code = 2821) 2.110 UIU/ML COMPREHENSIVE METABOLIC [id number] 00:00:00 Test Item Value Reference Range Interpretation Comments GLUCOSE (test code = 2217) 138 MG/DL BUN (test code = 2208) 13 MG/DL CREATININE (test code = 2214) 0.50 MG/DL eGFR AMER. (test code 141 ML/MIN/1.73 = 02724) eGFR NON- AMER. (test 122 ML/MIN/1.73 code = 62218) CALC BUN/CREAT (test code = 26 RATIO [...] code = 2219) 41 U/L COMPREHENSIVE METABOLIC [id number] 00:00:00 Test Item Value Reference Range Interpretation Comments GLUCOSE (test code = 2217) 138 MG/DL BUN (test code = 2208) 13 MG/DL CREATININE (test code = 2214) 0.50 MG/DL eGFR AMER. (test code 141 ML/MIN/1.73 = 47958) eGFR NON- AMER. (test 122 ML/MIN/1.73 code = 47865) CALC BUN/CREAT (test code = 26 RATIO [...] (test code = 2219) 41 U/L LIPID [id number] 00:00:00 Test Item Value Reference Range Interpretation Comments CHOLESTEROL (test code = 2210) 359 MG/DL TRIGLYCERIDES (test code = 2232) 1659 MG/DL HDL CHOLESTEROL (test code = 15 MG/DL 2220) CALC LDL CHOL (test code = 2237) NOTE MG/DL RISK RATIO LDL/HDL (test code = (NOTE) RATIO 2238) LIPID [id number] 00:00:00 Test Item Value Reference Range Interpretation Comments CHOLESTEROL (test code = 2210) 359 MG/DL TRIGLYCERIDES (test code = 2232) 1659 MG/DL HDL CHOLESTEROL (test code = 15 MG/DL 2220) CALC LDL CHOL (test code = 2237) NOTE MG/DL RISK RATIO LDL/HDL (test code = (NOTE) RATIO 2238) CBC W/AUTO [id number] 00:00:00 Test Item Value Reference Range Interpretation [...] code = 1015) 287 K/UL CBC W/AUTO [id number] 00:00:00 Test Item Value Reference Range Interpretation [...] code = 1015) 287 K/UL CBC W/AUTO [id number] 00:00:00 Test Item Value Reference Range Interpretation [...] (test code = 1015) 287 K/UL HEMOGLOBIN [id number] 00:00:00 Test Item Value Reference Range Interpretation Comments HEMOGLOBIN A1c (test code = 96413) 9.8 % HEMOGLOBIN [id number] 00:00:00 Test Item Value Reference Range Interpretation Comments HEMOGLOBIN A1c (test code = 25718) 9.8 % HEMOGLOBIN [id number] 00:00:00 Test Item Value Reference Range Interpretation Comments HEMOGLOBIN A1c (test code = 77683) 9.8 % [id number] 00:00:00 Test Item Value Reference Range Interpretation Comments TSH (test code = 2821) 2.110 UIU/ML [id number] 00:00:00 Test Item Value Reference Range Interpretation Comments TSH (test code = 2821) 2.110 UIU/ML [id number] 00:00:00 Test Item Value Reference Range Interpretation Comments TSH (test code = 2821) 2.110 UIU/ML COMPREHENSIVE METABOLIC [id number] 00:00:00 Test Item Value Reference Range Interpretation Comments GLUCOSE (test code = 2217) 138 MG/DL BUN (test code = 2208) 13 MG/DL CREATININE (test code = 2214) 0.50 MG/DL eGFR AMER. (test code 141 ML/MIN/1.73 = 70530) eGFR NON- AMER. (test 122 ML/MIN/1.73 code = 71969) CALC BUN/CREAT (test code = 26 RATIO [...] code = 2219) 41 U/L COMPREHENSIVE METABOLIC [id number] 00:00:00 Test Item Value Reference Range Interpretation Comments GLUCOSE (test code = 2217) 138 MG/DL BUN (test code = 2208) 13 MG/DL CREATININE (test code = 2214) 0.50 MG/DL eGFR AMER. (test code 141 ML/MIN/1.73 = 21240) eGFR NON- AMER. (test 122 ML/MIN/1.73 code = 61714) CALC BUN/CREAT (test code = 26 RATIO [...] (test code = 2219) 41 U/L LIPID [id number] 00:00:00 Test Item Value Reference Range Interpretation Comments CHOLESTEROL (test code = 2210) 359 MG/DL TRIGLYCERIDES (test code = 2232) 1659 MG/DL HDL CHOLESTEROL (test code = 15 MG/DL 2220) CALC LDL CHOL (test code = 2237) NOTE MG/DL RISK RATIO LDL/HDL (test code = (NOTE) RATIO 2238) LIPID [id number] 00:00:00 Test Item Value Reference Range Interpretation Comments CHOLESTEROL (test code = 2210) 359 MG/DL TRIGLYCERIDES (test code = 2232) 1659 MG/DL HDL CHOLESTEROL (test code = 15 MG/DL 2220) CALC LDL CHOL (test code = 2237) NOTE MG/DL RISK RATIO LDL/HDL (test code = (NOTE) RATIO 2238) CBC W/AUTO [id number] 00:00:00 Test Item Value Reference Range Interpretation [...] code = 1015) 287 K/UL CBC W/AUTO [id number] 00:00:00 Test Item Value Reference Range Interpretation [...] code = 1015) 287 K/UL CBC W/AUTO [id number] 00:00:00 Test Item Value Reference Range Interpretation [...] (test code = 1015) 287 K/UL HEMOGLOBIN [id number] 00:00:00 Test Item Value Reference Range Interpretation Comments HEMOGLOBIN A1c (test code = 21028) 9.8 % HEMOGLOBIN [id number] 00:00:00 Test Item Value Reference Range Interpretation Comments HEMOGLOBIN A1c (test code = 35324) 9.8 % HEMOGLOBIN [id number] 00:00:00 Test Item Value Reference Range Interpretation Comments HEMOGLOBIN A1c (test code = 40287) 9.8 % [id number] 00:00:00 Test Item Value Reference Range Interpretation Comments TSH (test code = 2821) 2.110 UIU/ML [id number] 00:00:00 Test Item Value Reference Range Interpretation Comments TSH (test code = 2821) 2.110 UIU/ML [id number] 00:00:00 Test Item Value Reference Range Interpretation Comments TSH (test code = 2821) 2.110 UIU/ML LIPID [id number] 00:00:00 Test Item Value Reference Range Interpretation Comments CHOLESTEROL (test code = 2210) 195 MG/DL TRIGLYCERIDES (test code = 2232) 505 MG/DL HDL CHOLESTEROL (test code = 35 MG/DL 2220) CALC LDL CHOL (test code = 2237) NOTE MG/DL RISK RATIO LDL/HDL (test code = (NOTE) RATIO 2238) LIPID [id number] 00:00:00 Test Item Value Reference Range Interpretation [...] (test code = 2821) 2.000 UIU/ML LIPID [id number] 00:00:00 Test Item Value Reference Range Interpretation Comments CHOLESTEROL (test code = 2210) 195 MG/DL TRIGLYCERIDES (test code = 2232) 505 MG/DL HDL CHOLESTEROL (test code = 35 MG/DL 2220) CALC LDL CHOL (test code = 2237) NOTE MG/DL RISK RATIO LDL/HDL (test code = (NOTE) RATIO 2238) LIPID [id number] 00:00:00 Test Item Value Reference Range Interpretation [...] (test code = 2821) 2.000 UIU/ML LIPID [id number] 00:00:00 Test Item Value Reference Range Interpretation Comments CHOLESTEROL (test code = 2210) 195 MG/DL TRIGLYCERIDES (test code = 2232) 505 MG/DL HDL CHOLESTEROL (test code = 35 MG/DL 2220) CALC LDL CHOL (test code = 2237) NOTE MG/DL RISK RATIO LDL/HDL (test code = (NOTE) RATIO 2238) LIPID [id number] 00:00:00 Test Item Value Reference Range Interpretation [...] (test code = 2821) 2.000 UIU/ML LIPID [id number] 00:00:00 Test Item Value Reference Range Interpretation Comments CHOLESTEROL (test code = 2210) 195 MG/DL TRIGLYCERIDES (test code = 2232) 505 MG/DL HDL CHOLESTEROL (test code = 35 MG/DL 2220) CALC LDL CHOL (test code = 2237) NOTE MG/DL RISK RATIO LDL/HDL (test code = (NOTE) RATIO 2238) LIPID [id number] 00:00:00 Test Item Value Reference Range Interpretation [...] (test code = 2821) 2.000 UIU/ML LIPID [id number] 00:00:00 Test Item Value Reference Range Interpretation Comments CHOLESTEROL (test code = 2210) 195 MG/DL TRIGLYCERIDES (test code = 2232) 505 MG/DL HDL CHOLESTEROL (test code = 35 MG/DL 2220) CALC LDL CHOL (test code = 2237) NOTE MG/DL RISK RATIO LDL/HDL (test code = (NOTE) RATIO 2238) LIPID [id number] 00:00:00 Test Item Value Reference Range Interpretation [...] (test code = 2821) 2.000 UIU/ML LIPID [id number] 00:00:00 Test Item Value Reference Range Interpretation Comments CHOLESTEROL (test code = 2210) 195 MG/DL TRIGLYCERIDES (test code = 2232) 505 MG/DL HDL CHOLESTEROL (test code = 35 MG/DL 2220) CALC LDL CHOL (test code = 2237) NOTE MG/DL RISK RATIO LDL/HDL (test code = (NOTE) RATIO 2238) LIPID [id number] 00:00:00 Test Item Value Reference Range Interpretation [...] (test code = 2821) 2.000 UIU/ML LIPID [id number] 00:00:00 Test Item Value Reference Range Interpretation Comments CHOLESTEROL (test code = 2210) 195 MG/DL TRIGLYCERIDES (test code = 2232) 505 MG/DL HDL CHOLESTEROL (test code = 35 MG/DL 2220) CALC LDL CHOL (test code = 2237) NOTE MG/DL RISK RATIO LDL/HDL (test code = (NOTE) RATIO 2238) LIPID [id number] 00:00:00 Test Item Value Reference Range Interpretation [...] (test code = 2821) 2.000 UIU/ML LIPID [id number] 00:00:00 Test Item Value Reference Range Interpretation [...] (test code = 2821) 2.000 UIU/ML LIPID [id number] 00:00:00 Test Item Value Reference Range Interpretation Comments CHOLESTEROL (test code = 2210) 195 MG/DL TRIGLYCERIDES (test code = 2232) 505 MG/DL HDL CHOLESTEROL (test code = 35 MG/DL 2220) CALC LDL CHOL (test code = 2237) NOTE MG/DL RISK RATIO LDL/HDL (test code = (NOTE) RATIO 2238) LIPID [id number] 00:00:00 Test Item Value Reference Range Interpretation [...] (test code = 2821) 2.000 UIU/ML LIPID [id number] 00:00:00 Test Item Value Reference Range Interpretation Comments CHOLESTEROL (test code = 2210) 195 MG/DL TRIGLYCERIDES (test code = 2232) 505 MG/DL HDL CHOLESTEROL (test code = 35 MG/DL 2220) CALC LDL CHOL (test code = 2237) NOTE MG/DL RISK RATIO LDL/HDL (test code = (NOTE) RATIO 2238) LIPID [id number] 00:00:00 Test Item Value Reference Range Interpretation [...] (test code = 2821) 2.000 UIU/ML LIPID [id number] 00:00:00 Test Item Value Reference Range Interpretation Comments CHOLESTEROL (test code = 2210) 195 MG/DL TRIGLYCERIDES (test code = 2232) 505 MG/DL HDL CHOLESTEROL (test code = 35 MG/DL 2220) CALC LDL CHOL (test code = 2237) NOTE MG/DL RISK RATIO LDL/HDL (test code = (NOTE) RATIO 2238) LIPID [id number] 00:00:00 Test Item Value Reference Range Interpretation [...] code = 2821) 2.000 UIU/ML COMPREHENSIVE METABOLIC [id number] 00:00:00 Test Item Value Reference Range Interpretation Comments GLUCOSE (test code = 2217) 154 MG/DL BUN (test code = 2208) 12 MG/DL CREATININE (test code = 2214) 0.54 MG/DL eGFR AMER. (test code 139 ML/MIN/1.73 = 44871) eGFR NON- AMER. (test 120 ML/MIN/1.73 code = 30871) CALC BUN/CREAT (test code = 22 RATIO [...] code = 2219) 22 U/L COMPREHENSIVE METABOLIC [id number] 00:00:00 Test Item Value Reference Range Interpretation Comments GLUCOSE (test code = 2217) 154 MG/DL BUN (test code = 2208) 12 MG/DL CREATININE (test code = 2214) 0.54 MG/DL eGFR AMER. (test code 139 ML/MIN/1.73 = 78038) eGFR NON- AMER. (test 120 ML/MIN/1.73 code = 35692) CALC BUN/CREAT (test code = 22 RATIO [...] (test code = 2219) 22 U/L LIPID [id number] 00:00:00 Test Item Value Reference Range Interpretation Comments CHOLESTEROL (test code = 2210) 243 MG/DL TRIGLYCERIDES (test code = 2232) 1140 MG/DL HDL CHOLESTEROL (test code = 31 MG/DL 2220) CALC LDL CHOL (test code = 2237) NOTE MG/DL RISK RATIO LDL/HDL (test code = (NOTE) RATIO 2238) LIPID [id number] 00:00:00 Test Item Value Reference Range Interpretation Comments CHOLESTEROL (test code = 2210) 243 MG/DL TRIGLYCERIDES (test code = 2232) 1140 MG/DL HDL CHOLESTEROL (test code = 31 MG/DL 2220) CALC LDL CHOL (test code = 2237) NOTE MG/DL RISK RATIO LDL/HDL (test code = (NOTE) RATIO 2238) CBC W/AUTO [id number] 00:00:00 Test Item Value Reference Range Interpretation [...] code = 1015) 229 K/UL CBC W/AUTO [id number] 00:00:00 Test Item Value Reference Range Interpretation [...] code = 1015) 229 K/UL CBC W/AUTO [id number] 00:00:00 Test Item Value Reference Range Interpretation [...] (test code = 1015) 229 K/UL HEMOGLOBIN [id number] 00:00:00 Test Item Value Reference Range Interpretation Comments HEMOGLOBIN A1c (test code = 39773) 7.7 % HEMOGLOBIN [id number] 00:00:00 Test Item Value Reference Range Interpretation Comments HEMOGLOBIN A1c (test code = 94491) 7.7 % HEMOGLOBIN [id number] 00:00:00 Test Item Value Reference Range Interpretation Comments HEMOGLOBIN A1c (test code = 72966) 7.7 % COMPREHENSIVE METABOLIC [id number] 00:00:00 Test Item Value Reference Range Interpretation Comments GLUCOSE (test code = 2217) 154 MG/DL BUN (test code = 2208) 12 MG/DL CREATININE (test code = 2214) 0.54 MG/DL eGFR AMER. (test code 139 ML/MIN/1.73 = 85870) eGFR NON- AMER. (test 120 ML/MIN/1.73 code = 72216) CALC BUN/CREAT (test code = 22 RATIO [...] code = 2219) 22 U/L COMPREHENSIVE METABOLIC [id number] 00:00:00 Test Item Value Reference Range Interpretation Comments GLUCOSE (test code = 2217) 154 MG/DL BUN (test code = 2208) 12 MG/DL CREATININE (test code = 2214) 0.54 MG/DL eGFR AMER. (test code 139 ML/MIN/1.73 = 96960) eGFR NON- AMER. (test 120 ML/MIN/1.73 code = 58320) CALC BUN/CREAT (test code = 22 RATIO [...] (test code = 2219) 22 U/L LIPID [id number] 00:00:00 Test Item Value Reference Range Interpretation Comments CHOLESTEROL (test code = 2210) 243 MG/DL TRIGLYCERIDES (test code = 2232) 1140 MG/DL HDL CHOLESTEROL (test code = 31 MG/DL 2220) CALC LDL CHOL (test code = 2237) NOTE MG/DL RISK RATIO LDL/HDL (test code = (NOTE) RATIO 2238) LIPID [id number] 00:00:00 Test Item Value Reference Range Interpretation Comments CHOLESTEROL (test code = 2210) 243 MG/DL TRIGLYCERIDES (test code = 2232) 1140 MG/DL HDL CHOLESTEROL (test code = 31 MG/DL 2220) CALC LDL CHOL (test code = 2237) NOTE MG/DL RISK RATIO LDL/HDL (test code = (NOTE) RATIO 2238) CBC W/AUTO [id number] 00:00:00 Test Item Value Reference Range Interpretation [...] code = 1015) 229 K/UL CBC W/AUTO [id number] 00:00:00 Test Item Value Reference Range Interpretation [...] code = 1015) 229 K/UL CBC W/AUTO [id number] 00:00:00 Test Item Value Reference Range Interpretation [...] (test code = 1015) 229 K/UL HEMOGLOBIN [id number] 00:00:00 Test Item Value Reference Range Interpretation Comments HEMOGLOBIN A1c (test code = 49689) 7.7 % HEMOGLOBIN [id number] 00:00:00 Test Item Value Reference Range Interpretation Comments HEMOGLOBIN A1c (test code = 47974) 7.7 % HEMOGLOBIN [id number] 00:00:00 Test Item Value Reference Range Interpretation Comments HEMOGLOBIN A1c (test code = 36135) 7.7 % COMPREHENSIVE METABOLIC [id number] 00:00:00 Test Item Value Reference Range Interpretation Comments GLUCOSE (test code = 2217) 154 MG/DL BUN (test code = 2208) 12 MG/DL CREATININE (test code = 2214) 0.54 MG/DL eGFR AMER. (test code 139 ML/MIN/1.73 = 46943) eGFR NON- AMER. (test 120 ML/MIN/1.73 code = 48644) CALC BUN/CREAT (test code = 22 RATIO [...] ALKALINE PHOSPHATASE (test 42 U/L code = 220) AST (test code = 2218) 17 U/L ALT (test code = 2219) 22 U/L COMPREHENSIVE METABOLIC [id number] 00:00:00 Test Item Value Reference Range Interpretation Comments GLUCOSE (test code = 2217) 154 MG/DL BUN (test code = 2208) 12 MG/DL CREATININE (test code = 2214) 0.54 MG/DL eGFR AMER. (test code 139 ML/MIN/1.73 = 82252) eGFR NON- AMER. (test 120 ML/MIN/1.73 code = 65500) CALC BUN/CREAT (test code = 22 RATIO [...] (test code = 2219) 22 U/L LIPID [id number] 00:00:00 Test Item Value Reference Range Interpretation Comments CHOLESTEROL (test code = 2210) 243 MG/DL TRIGLYCERIDES (test code = 2232) 1140 MG/DL HDL CHOLESTEROL (test code = 31 MG/DL 2220) CALC LDL CHOL (test code = 2237) NOTE MG/DL RISK RATIO LDL/HDL (test code = (NOTE) RATIO 2238) LIPID [id number] 00:00:00 Test Item Value Reference Range Interpretation Comments CHOLESTEROL (test code = 2210) 243 MG/DL TRIGLYCERIDES (test code = 2232) 1140 MG/DL HDL CHOLESTEROL (test code = 31 MG/DL 2220) CALC LDL CHOL (test code = 2237) NOTE MG/DL RISK RATIO LDL/HDL (test code = (NOTE) RATIO 2238) CBC W/AUTO [id number] 00:00:00 Test Item Value Reference Range Interpretation [...] code = 1015) 229 K/UL CBC W/AUTO [id number] 00:00:00 Test Item Value Reference Range Interpretation [...] code = 1015) 229 K/UL CBC W/AUTO [id number] 00:00:00 Test Item Value Reference Range Interpretation [...] (test code = 1015) 229 K/UL HEMOGLOBIN [id number] 00:00:00 Test Item Value Reference Range Interpretation Comments HEMOGLOBIN A1c (test code = 05839) 7.7 % HEMOGLOBIN [id number] 00:00:00 Test Item Value Reference Range Interpretation Comments HEMOGLOBIN A1c (test code = 01814) 7.7 % HEMOGLOBIN [id number] 00:00:00 Test Item Value Reference Range Interpretation Comments HEMOGLOBIN A1c (test code = 07689) 7.7 % COMPREHENSIVE METABOLIC [id number] 00:00:00 Test Item Value Reference Range Interpretation Comments GLUCOSE (test code = 2217) 154 MG/DL BUN (test code = 2208) 12 MG/DL CREATININE (test code = 2214) 0.54 MG/DL eGFR AMER. (test code 139 ML/MIN/1.73 = 65629) eGFR NON- AMER. (test 120 ML/MIN/1.73 code = 34642) CALC BUN/CREAT (test code = 22 RATIO [...] code = 2219) 22 U/L COMPREHENSIVE METABOLIC [id number] 00:00:00 Test Item Value Reference Range Interpretation Comments GLUCOSE (test code = 2217) 154 MG/DL BUN (test code = 2208) 12 MG/DL CREATININE (test code = 2214) 0.54 MG/DL eGFR AMER. (test code 139 ML/MIN/1.73 = 12285) eGFR NON- AMER. (test 120 ML/MIN/1.73 code = 87850) CALC BUN/CREAT (test code = 22 RATIO [...] (test code = 2219) 22 U/L LIPID [id number] 00:00:00 Test Item Value Reference Range Interpretation Comments CHOLESTEROL (test code = 2210) 243 MG/DL TRIGLYCERIDES (test code = 2232) 1140 MG/DL HDL CHOLESTEROL (test code = 31 MG/DL 2220) CALC LDL CHOL (test code = 2237) NOTE MG/DL RISK RATIO LDL/HDL (test code = (NOTE) RATIO 2238) LIPID [id number] 00:00:00 Test Item Value Reference Range Interpretation Comments CHOLESTEROL (test code = 2210) 243 MG/DL TRIGLYCERIDES (test code = 2232) 1140 MG/DL HDL CHOLESTEROL (test code = 31 MG/DL 2220) CALC LDL CHOL (test code = 2237) NOTE MG/DL RISK RATIO LDL/HDL (test code = (NOTE) RATIO 2238) CBC W/AUTO [id number] 00:00:00 Test Item Value Reference Range Interpretation [...] code = 1015) 229 K/UL CBC W/AUTO [id number] 00:00:00 Test Item Value Reference Range Interpretation [...] code = 1015) 229 K/UL CBC W/AUTO [id number] 00:00:00 Test Item Value Reference Range Interpretation [...] (test code = 1015) 229 K/UL HEMOGLOBIN [id number] 00:00:00 Test Item Value Reference Range Interpretation Comments HEMOGLOBIN A1c (test code = 08119) 7.7 % HEMOGLOBIN [id number] 00:00:00 Test Item Value Reference Range Interpretation Comments HEMOGLOBIN A1c (test code = 99192) 7.7 % HEMOGLOBIN [id number] 00:00:00 Test Item Value Reference Range Interpretation Comments HEMOGLOBIN A1c (test code = 04984) 7.7 % COMPREHENSIVE METABOLIC [id number] 00:00:00 Test Item Value Reference Range Interpretation Comments GLUCOSE (test code = 2217) 154 MG/DL BUN (test code = 2208) 12 MG/DL CREATININE (test code = 2214) 0.54 MG/DL eGFR AMER. (test code 139 ML/MIN/1.73 = 39923) eGFR NON- AMER. (test 120 ML/MIN/1.73 code = 32814) CALC BUN/CREAT (test code = 22 RATIO [...] code = 2219) 22 U/L COMPREHENSIVE METABOLIC [id number] 00:00:00 Test Item Value Reference Range Interpretation Comments GLUCOSE (test code = 2217) 154 MG/DL BUN (test code = 2208) 12 MG/DL CREATININE (test code = 2214) 0.54 MG/DL eGFR AMER. (test code 139 ML/MIN/1.73 = 63860) eGFR NON- AMER. (test 120 ML/MIN/1.73 code = 41080) CALC BUN/CREAT (test code = 22 RATIO [...] (test code = 2219) 22 U/L LIPID [id number] 00:00:00 Test Item Value Reference Range Interpretation Comments CHOLESTEROL (test code = 2210) 243 MG/DL TRIGLYCERIDES (test code = 2232) 1140 MG/DL HDL CHOLESTEROL (test code = 31 MG/DL 2220) CALC LDL CHOL (test code = 2237) NOTE MG/DL RISK RATIO LDL/HDL (test code = (NOTE) RATIO 2238) LIPID [id number] 00:00:00 Test Item Value Reference Range Interpretation Comments CHOLESTEROL (test code = 2210) 243 MG/DL TRIGLYCERIDES (test code = 2232) 1140 MG/DL HDL CHOLESTEROL (test code = 31 MG/DL 2220) CALC LDL CHOL (test code = 2237) NOTE MG/DL RISK RATIO LDL/HDL (test code = (NOTE) RATIO 2238) CBC W/AUTO [id number] 00:00:00 Test Item Value Reference Range Interpretation [...] code = 1015) 229 K/UL CBC W/AUTO [id number] 00:00:00 Test Item Value Reference Range Interpretation [...] code = 1015) 229 K/UL CBC W/AUTO [id number] 00:00:00 Test Item Value Reference Range Interpretation [...] (test code = 1015) 229 K/UL HEMOGLOBIN [id number] 00:00:00 Test Item Value Reference Range Interpretation Comments HEMOGLOBIN A1c (test code = 08323) 7.7 % HEMOGLOBIN [id number] 00:00:00 Test Item Value Reference Range Interpretation Comments HEMOGLOBIN A1c (test code = 57405) 7.7 % HEMOGLOBIN [id number] 00:00:00 Test Item Value Reference Range Interpretation Comments HEMOGLOBIN A1c (test code = 68752) 7.7 % COMPREHENSIVE METABOLIC [id number] 00:00:00 Test Item Value Reference Range Interpretation Comments GLUCOSE (test code = 2217) 154 MG/DL BUN (test code = 2208) 12 MG/DL CREATININE (test code = 2214) 0.54 MG/DL eGFR AMER. (test code 139 ML/MIN/1.73 = 50368) eGFR NON- AMER. (test 120 ML/MIN/1.73 code = 78713) CALC BUN/CREAT (test code = 22 RATIO [...] code = 2219) 22 U/L COMPREHENSIVE METABOLIC [id number] 00:00:00 Test Item Value Reference Range Interpretation Comments GLUCOSE (test code = 2217) 154 MG/DL BUN (test code = 2208) 12 MG/DL CREATININE (test code = 2214) 0.54 MG/DL eGFR AMER. (test code 139 ML/MIN/1.73 = 98008) eGFR NON- AMER. (test 120 ML/MIN/1.73 code = 68481) CALC BUN/CREAT (test code = 22 RATIO [...] (test code = 2219) 22 U/L LIPID [id number] 00:00:00 Test Item Value Reference Range Interpretation Comments CHOLESTEROL (test code = 2210) 243 MG/DL TRIGLYCERIDES (test code = 2232) 1140 MG/DL HDL CHOLESTEROL (test code = 31 MG/DL 2220) CALC LDL CHOL (test code = 2237) NOTE MG/DL RISK RATIO LDL/HDL (test code = (NOTE) RATIO 2238) LIPID [id number] 00:00:00 Test Item Value Reference Range Interpretation Comments CHOLESTEROL (test code = 2210) 243 MG/DL TRIGLYCERIDES (test code = 2232) 1140 MG/DL HDL CHOLESTEROL (test code = 31 MG/DL 2220) CALC LDL CHOL (test code = 2237) NOTE MG/DL RISK RATIO LDL/HDL (test code = (NOTE) RATIO 2238) CBC W/AUTO [id number] 00:00:00 Test Item Value Reference Range Interpretation [...] code = 1015) 229 K/UL CBC W/AUTO [id number] 00:00:00 Test Item Value Reference Range Interpretation [...] code = 1015) 229 K/UL CBC W/AUTO [id number] 00:00:00 Test Item Value Reference Range Interpretation [...] (test code = 1015) 229 K/UL HEMOGLOBIN [id number] 00:00:00 Test Item Value Reference Range Interpretation Comments HEMOGLOBIN A1c (test code = 43020) 7.7 % HEMOGLOBIN [id number] 00:00:00 Test Item Value Reference Range Interpretation Comments HEMOGLOBIN A1c (test code = 39836) 7.7 % HEMOGLOBIN [id number] 00:00:00 Test Item Value Reference Range Interpretation Comments HEMOGLOBIN A1c (test code = 56713) 7.7 % COMPREHENSIVE METABOLIC [id number] 00:00:00 Test Item Value Reference Range Interpretation Comments GLUCOSE (test code = 2217) 154 MG/DL BUN (test code = 2208) 12 MG/DL CREATININE (test code = 2214) 0.54 MG/DL eGFR AMER. (test code 139 ML/MIN/1.73 = 78031) eGFR NON- AMER. (test 120 ML/MIN/1.73 code = 97142) CALC BUN/CREAT (test code = 22 RATIO [...] code = 2219) 22 U/L COMPREHENSIVE METABOLIC [id number] 00:00:00 Test Item Value Reference Range Interpretation Comments GLUCOSE (test code = 2217) 154 MG/DL BUN (test code = 2208) 12 MG/DL CREATININE (test code = 2214) 0.54 MG/DL eGFR AMER. (test code 139 ML/MIN/1.73 = 56640) eGFR NON- AMER. (test 120 ML/MIN/1.73 code = 79477) CALC BUN/CREAT (test code = 22 RATIO [...] (test code = 2219) 22 U/L LIPID [id number] 00:00:00 Test Item Value Reference Range Interpretation Comments CHOLESTEROL (test code = 2210) 243 MG/DL TRIGLYCERIDES (test code = 2232) 1140 MG/DL HDL CHOLESTEROL (test code = 31 MG/DL 0) CALC LDL CHOL (test code = 2237) NOTE MG/DL RISK RATIO LDL/HDL (test code = (NOTE) RATIO 2238) COMPREHENSIVE METABOLIC [id number] 00:00:00 Test Item Value Reference Range Interpretation Comments GLUCOSE (test code = 2217) 154 MG/DL BUN (test code = 2208) 12 MG/DL CREATININE (test code = 2214) 0.54 MG/DL eGFR AMER. (test code 139 ML/MIN/1.73 = 58742) eGFR NON- AMER. (test 120 ML/MIN/1.73 code = 19155) CALC BUN/CREAT (test code = 22 RATIO [...] (test code = 2219) 22 U/L LIPID [id number] 00:00:00 Test Item Value Reference Range Interpretation Comments CHOLESTEROL (test code = 2210) 243 MG/DL TRIGLYCERIDES (test code = 2232) 1140 MG/DL HDL CHOLESTEROL (test code = 31 MG/DL 2219) CALC LDL CHOL (test code = 2237) NOTE MG/DL RISK RATIO LDL/HDL (test code = (NOTE) RATIO 2238) CBC W/AUTO [id number] 00:00:00 Test Item Value Reference Range Interpretation [...] code = 1015) 229 K/UL CBC W/AUTO [id number] 00:00:00 Test Item Value Reference Range Interpretation [...] code = 1015) 229 K/UL CBC W/AUTO [id number] 00:00:00 Test Item Value Reference Range Interpretation [...] (test code = 1015) 229 K/UL HEMOGLOBIN [id number] 00:00:00 Test Item Value Reference Range Interpretation Comments HEMOGLOBIN A1c (test code = 13476) 7.7 % HEMOGLOBIN [id number] 00:00:00 Test Item Value Reference Range Interpretation Comments HEMOGLOBIN A1c (test code = 76095) 7.7 % HEMOGLOBIN [id number] 00:00:00 Test Item Value Reference Range Interpretation Comments HEMOGLOBIN A1c (test code = 25251) 7.7 % LIPID [id number] 00:00:00 Test Item Value Reference Range Interpretation Comments CHOLESTEROL (test code = 2210) 243 MG/DL TRIGLYCERIDES (test code = 2232) 1140 MG/DL HDL CHOLESTEROL (test code = 31 MG/DL 2220) CALC LDL CHOL (test code = 2237) NOTE MG/DL RISK RATIO LDL/HDL (test code = (NOTE) RATIO 2238) CBC W/AUTO [id number] 00:00:00 Test Item Value Reference Range Interpretation [...] code = 1015) 229 K/UL CBC W/AUTO [id number] 00:00:00 Test Item Value Reference Range Interpretation [...] code = 1015) 229 K/UL COMPREHENSIVE METABOLIC [id number] 00:00:00 Test Item Value Reference Range Interpretation Comments GLUCOSE (test code = 2217) 154 MG/DL BUN (test code = 2208) 12 MG/DL CREATININE (test code = 2214) 0.54 MG/DL eGFR AMER. (test code 139 ML/MIN/1.73 = 37038) eGFR NON- AMER. (test 120 ML/MIN/1.73 code = 35475) CALC BUN/CREAT (test code = 22 RATIO [...] code = 2219) 22 U/L COMPREHENSIVE METABOLIC [id number] 00:00:00 Test Item Value Reference Range Interpretation Comments GLUCOSE (test code = 2217) 154 MG/DL BUN (test code = 2208) 12 MG/DL CREATININE (test code = 2214) 0.54 MG/DL eGFR AMER. (test code 139 ML/MIN/1.73 = 76892) eGFR NON- AMER. (test 120 ML/MIN/1.73 code = 97856) CALC BUN/CREAT (test code = 22 RATIO [...] (test code = 2219) 22 U/L HEMOGLOBIN [id number] 00:00:00 Test Item Value Reference Range Interpretation Comments HEMOGLOBIN A1c (test code = 97653) 7.7 % LIPID [id number] 00:00:00 Test Item Value Reference Range Interpretation Comments CHOLESTEROL (test code = 2210) 243 MG/DL TRIGLYCERIDES (test code = 2232) 1140 MG/DL HDL CHOLESTEROL (test code = 31 MG/DL 2220) CALC LDL CHOL (test code = 2237) NOTE MG/DL RISK RATIO LDL/HDL (test code = (NOTE) RATIO 2238) LIPID [id number] 00:00:00 Test Item Value Reference Range Interpretation Comments CHOLESTEROL (test code = 2210) 243 MG/DL TRIGLYCERIDES (test code = 2232) 1140 MG/DL HDL CHOLESTEROL (test code = 31 MG/DL 2220) CALC LDL CHOL (test code = 2237) NOTE MG/DL RISK RATIO LDL/HDL (test code = (NOTE) RATIO 2238) HEMOGLOBIN [id number] 00:00:00 Test Item Value Reference Range Interpretation Comments HEMOGLOBIN A1c (test code = 52809) 7.7 % CBC W/AUTO [id number] 00:00:00 Test Item Value Reference Range Interpretation [...] code = 1015) 229 K/UL CBC W/AUTO [id number] 00:00:00 Test Item Value Reference Range Interpretation [...] code = 1015) 229 K/UL CBC W/AUTO [id number] 00:00:00 Test Item Value Reference Range Interpretation [...] (test code = 1015) 229 K/UL HEMOGLOBIN [id number] 00:00:00 Test Item Value Reference Range Interpretation Comments HEMOGLOBIN A1c (test code = 92872) 7.7 % HEMOGLOBIN [id number] 00:00:00 Test Item Value Reference Range Interpretation Comments HEMOGLOBIN A1c (test code = 02164) 7.7 % HEMOGLOBIN [id number] 00:00:00 Test Item Value Reference Range Interpretation Comments HEMOGLOBIN A1c (test code = 57268) 7.7 % COMPREHENSIVE METABOLIC [id number] 00:00:00 Test Item Value Reference Range Interpretation Comments GLUCOSE (test code = 2217) 154 MG/DL BUN (test code = 2208) 12 MG/DL CREATININE (test code = 2214) 0.54 MG/DL eGFR AMER. (test code 139 ML/MIN/1.73 = 39927) eGFR NON- AMER. (test 120 ML/MIN/1.73 code = 11954) CALC BUN/CREAT (test code = 22 RATIO [...] code = 2219) 22 U/L COMPREHENSIVE METABOLIC [id number] 00:00:00 Test Item Value Reference Range Interpretation Comments GLUCOSE (test code = 2217) 154 MG/DL BUN (test code = 2208) 12 MG/DL CREATININE (test code = 2214) 0.54 MG/DL eGFR AMER. (test code 139 ML/MIN/1.73 = 69553) eGFR NON- AMER. (test 120 ML/MIN/1.73 code = 37525) CALC BUN/CREAT (test code = 22 RATIO [...] (test code = 2219) 22 U/L LIPID [id number] 00:00:00 Test Item Value Reference Range Interpretation Comments CHOLESTEROL (test code = 2210) 243 MG/DL TRIGLYCERIDES (test code = 2232) 1140 MG/DL HDL CHOLESTEROL (test code = 31 MG/DL 2220) CALC LDL CHOL (test code = 2237) NOTE MG/DL RISK RATIO LDL/HDL (test code = (NOTE) RATIO 2238) LIPID [id number] 00:00:00 Test Item Value Reference Range Interpretation Comments CHOLESTEROL (test code = 2210) 243 MG/DL TRIGLYCERIDES (test code = 2232) 1140 MG/DL HDL CHOLESTEROL (test code = 31 MG/DL 2220) CALC LDL CHOL (test code = 2237) NOTE MG/DL RISK RATIO LDL/HDL (test code = (NOTE) RATIO 2238) CBC W/AUTO [id number] 00:00:00 Test Item Value Reference Range Interpretation [...] code = 1015) 229 K/UL CBC W/AUTO [id number] 00:00:00 Test Item Value Reference Range Interpretation [...] code = 1015) 229 K/UL CBC W/AUTO [id number] 00:00:00 Test Item Value Reference Range Interpretation [...] (test code = 1015) 229 K/UL HEMOGLOBIN [id number] 00:00:00 Test Item Value Reference Range Interpretation Comments HEMOGLOBIN A1c (test code = 52431) 7.7 % HEMOGLOBIN [id number] 00:00:00 Test Item Value Reference Range Interpretation Comments HEMOGLOBIN A1c (test code = 36491) 7.7 % HEMOGLOBIN [id number] 00:00:00 Test Item Value Reference Range Interpretation Comments HEMOGLOBIN A1c (test code = 21526) 7.7 % COMPREHENSIVE METABOLIC [id number] 00:00:00 Test Item Value Reference Range Interpretation Comments GLUCOSE (test code = 2217) 154 MG/DL BUN (test code = 2208) 12 MG/DL CREATININE (test code = 2214) 0.54 MG/DL eGFR AMER. (test code 139 ML/MIN/1.73 = 99907) eGFR NON- AMER. (test 120 ML/MIN/1.73 code = 92851) CALC BUN/CREAT (test code = 22 RATIO [...] code = 2219) 22 U/L COMPREHENSIVE METABOLIC [id number] 00:00:00 Test Item Value Reference Range Interpretation Comments GLUCOSE (test code = 2217) 154 MG/DL BUN (test code = 2208) 12 MG/DL CREATININE (test code = 2214) 0.54 MG/DL eGFR AMER. (test code 139 ML/MIN/1.73 = 49515) eGFR NON- AMER. (test 120 ML/MIN/1.73 code = 98315) CALC BUN/CREAT (test code = 22 RATIO [...] (test code = 2219) 22 U/L LIPID [id number] 00:00:00 Test Item Value Reference Range Interpretation Comments CHOLESTEROL (test code = 2210) 243 MG/DL TRIGLYCERIDES (test code = 2232) 1140 MG/DL HDL CHOLESTEROL (test code = 31 MG/DL 2220) CALC LDL CHOL (test code = 2237) NOTE MG/DL RISK RATIO LDL/HDL (test code = (NOTE) RATIO 2238) LIPID [id number] 00:00:00 Test Item Value Reference Range Interpretation Comments CHOLESTEROL (test code = 2210) 243 MG/DL TRIGLYCERIDES (test code = 2232) 1140 MG/DL HDL CHOLESTEROL (test code = 31 MG/DL 2220) CALC LDL CHOL (test code = 2237) NOTE MG/DL RISK RATIO LDL/HDL (test code = (NOTE) RATIO 2238) CBC W/AUTO [id number] 00:00:00 Test Item Value Reference Range Interpretation [...] code = 1015) 229 K/UL CBC W/AUTO [id number] 00:00:00 Test Item Value Reference Range Interpretation [...] code = 1015) 229 K/UL CBC W/AUTO [id number] 00:00:00 Test Item Value Reference Range Interpretation [...] (test code = 1015) 229 K/UL HEMOGLOBIN [id number] 00:00:00 Test Item Value Reference Range Interpretation Comments HEMOGLOBIN A1c (test code = 06548) 7.7 % HEMOGLOBIN [id number] 00:00:00 Test Item Value Reference Range Interpretation Comments HEMOGLOBIN A1c (test code = 96246) 7.7 % HEMOGLOBIN [id number] 00:00:00 Test Item Value Reference Range Interpretation Comments HEMOGLOBIN A1c (test code = 76451) 7.7 % [id number] 00:00:00 Test Item Value Reference Range Interpretation Comments MAGNESIUM (test code = 2226) 1.4 MG/DL [id number] 00:00:00 Test Item Value Reference Range Interpretation Comments MAGNESIUM (test code = 2226) 1.4 MG/DL [id number] 00:00:00 Test Item Value Reference Range Interpretation Comments MAGNESIUM (test code = 2226) 1.4 MG/DL COMPREHENSIVE METABOLIC [id number] 00:00:00 Test Item Value Reference Range Interpretation Comments GLUCOSE (test code = 2217) 234 MG/DL BUN (test code = 2208) 17 MG/DL CREATININE (test code = 2214) 0.54 MG/DL eGFR AMER. (test code 139 ML/MIN/1.73 = 40754) eGFR NON- AMER. (test 120 ML/MIN/1.73 code = 84672) CALC BUN/CREAT (test code = 31 RATIO [...] code = 2219) 22 U/L COMPREHENSIVE METABOLIC [id number] 00:00:00 Test Item Value Reference Range Interpretation Comments GLUCOSE (test code = 2217) 234 MG/DL BUN (test code = 2208) 17 MG/DL CREATININE (test code = 2214) 0.54 MG/DL eGFR AMER. (test code 139 ML/MIN/1.73 = 60735) eGFR NON- AMER. (test 120 ML/MIN/1.73 code = 29091) CALC BUN/CREAT (test code = 31 RATIO [...] (test code = 2219) 22 U/L HEMOGLOBIN [id number] 00:00:00 Test Item Value Reference Range Interpretation Comments HEMOGLOBIN A1c (test code = 30834) 7.7 % HEMOGLOBIN [id number] 00:00:00 Test Item Value Reference Range Interpretation Comments HEMOGLOBIN A1c (test code = 52322) 7.7 % HEMOGLOBIN [id number] 00:00:00 Test Item Value Reference Range Interpretation Comments HEMOGLOBIN A1c (test code = 65640) 7.7 % CBC W/AUTO [id number] 00:00:00 Test Item Value Reference Range Interpretation [...] code = 1015) 224 K/UL CBC W/AUTO [id number] 00:00:00 Test Item Value Reference Range Interpretation [...] code = 1015) 224 K/UL CBC W/AUTO [id number] 00:00:00 Test Item Value Reference Range Interpretation [...] TSH (test code = 2821) <0.10 UIU/ML [id number] 00:00:00 Test Item Value Reference Range Interpretation Comments MAGNESIUM (test code = 2226) 1.4 MG/DL [id number] 00:00:00 Test Item Value Reference Range Interpretation Comments MAGNESIUM (test code = 2226) 1.4 MG/DL [id number] 00:00:00 Test Item Value Reference Range Interpretation Comments MAGNESIUM (test code = 2226) 1.4 MG/DL COMPREHENSIVE METABOLIC [id number] 00:00:00 Test Item Value Reference Range Interpretation Comments GLUCOSE (test code = 2217) 234 MG/DL BUN (test code = 2208) 17 MG/DL CREATININE (test code = 2214) 0.54 MG/DL eGFR AMER. (test code 139 ML/MIN/1.73 = 84012) eGFR NON- AMER. (test 120 ML/MIN/1.73 code = 63589) CALC BUN/CREAT (test code = 31 RATIO [...] code = 2219) 22 U/L COMPREHENSIVE METABOLIC [id number] 00:00:00 Test Item Value Reference Range Interpretation Comments GLUCOSE (test code = 2217) 234 MG/DL BUN (test code = 2208) 17 MG/DL CREATININE (test code = 2214) 0.54 MG/DL eGFR AMER. (test code 139 ML/MIN/1.73 = 13630) eGFR NON- AMER. (test 120 ML/MIN/1.73 code = 13116) CALC BUN/CREAT (test code = 31 RATIO [...] (test code = 2219) 22 U/L HEMOGLOBIN [id number] 00:00:00 Test Item Value Reference Range Interpretation Comments HEMOGLOBIN A1c (test code = 07251) 7.7 % HEMOGLOBIN [id number] 00:00:00 Test Item Value Reference Range Interpretation Comments HEMOGLOBIN A1c (test code = 52450) 7.7 % HEMOGLOBIN [id number] 00:00:00 Test Item Value Reference Range Interpretation Comments HEMOGLOBIN A1c (test code = 87842) 7.7 % CBC W/AUTO [id number] 00:00:00 Test Item Value Reference Range Interpretation [...] code = 1015) 224 K/UL CBC W/AUTO [id number] 00:00:00 Test Item Value Reference Range Interpretation [...] code = 1015) 224 K/UL CBC W/AUTO [id number] 00:00:00 Test Item Value Reference Range Interpretation [...] TSH (test code = 2821) <0.10 UIU/ML [id number] 00:00:00 Test Item Value Reference Range Interpretation Comments MAGNESIUM (test code = 2226) 1.4 MG/DL [id number] 00:00:00 Test Item Value Reference Range Interpretation Comments MAGNESIUM (test code = 2226) 1.4 MG/DL [id number] 00:00:00 Test Item Value Reference Range Interpretation Comments MAGNESIUM (test code = 2226) 1.4 MG/DL COMPREHENSIVE METABOLIC [id number] 00:00:00 Test Item Value Reference Range Interpretation Comments GLUCOSE (test code = 2217) 234 MG/DL BUN (test code = 2208) 17 MG/DL CREATININE (test code = 2214) 0.54 MG/DL eGFR AMER. (test code 139 ML/MIN/1.73 = 67185) eGFR NON- AMER. (test 120 ML/MIN/1.73 code = 88672) CALC BUN/CREAT (test code = 31 RATIO [...] code = 2219) 22 U/L COMPREHENSIVE METABOLIC [id number] 00:00:00 Test Item Value Reference Range Interpretation Comments GLUCOSE (test code = 2217) 234 MG/DL BUN (test code = 2208) 17 MG/DL CREATININE (test code = 2214) 0.54 MG/DL eGFR AMER. (test code 139 ML/MIN/1.73 = 19255) eGFR NON- AMER. (test 120 ML/MIN/1.73 code = 58568) CALC BUN/CREAT (test code = 31 RATIO [...] (test code = 2219) 22 U/L HEMOGLOBIN [id number] 00:00:00 Test Item Value Reference Range Interpretation Comments HEMOGLOBIN A1c (test code = 04385) 7.7 % HEMOGLOBIN [id number] 00:00:00 Test Item Value Reference Range Interpretation Comments HEMOGLOBIN A1c (test code = 08909) 7.7 % HEMOGLOBIN [id number] 00:00:00 Test Item Value Reference Range Interpretation Comments HEMOGLOBIN A1c (test code = 32473) 7.7 % CBC W/AUTO [id number] 00:00:00 Test Item Value Reference Range Interpretation [...] code = 1015) 224 K/UL CBC W/AUTO [id number] 00:00:00 Test Item Value Reference Range Interpretation [...] code = 1015) 224 K/UL CBC W/AUTO [id number] 00:00:00 Test Item Value Reference Range Interpretation [...] TSH (test code = 2821) <0.10 UIU/ML [id number] 00:00:00 Test Item Value Reference Range Interpretation Comments MAGNESIUM (test code = 2226) 1.4 MG/DL [id number] 00:00:00 Test Item Value Reference Range Interpretation Comments MAGNESIUM (test code = 2226) 1.4 MG/DL [id number] 00:00:00 Test Item Value Reference Range Interpretation Comments MAGNESIUM (test code = 2226) 1.4 MG/DL COMPREHENSIVE METABOLIC [id number] 00:00:00 Test Item Value Reference Range Interpretation Comments GLUCOSE (test code = 2217) 234 MG/DL BUN (test code = 2208) 17 MG/DL CREATININE (test code = 2214) 0.54 MG/DL eGFR AMER. (test code 139 ML/MIN/1.73 = 34382) eGFR NON- AMER. (test 120 ML/MIN/1.73 code = 74239) CALC BUN/CREAT (test code = 31 RATIO [...] code = 2219) 22 U/L COMPREHENSIVE METABOLIC [id number] 00:00:00 Test Item Value Reference Range Interpretation Comments GLUCOSE (test code = 2217) 234 MG/DL BUN (test code = 2208) 17 MG/DL CREATININE (test code = 2214) 0.54 MG/DL eGFR AMER. (test code 139 ML/MIN/1.73 = 53934) eGFR NON- AMER. (test 120 ML/MIN/1.73 code = 12632) CALC BUN/CREAT (test code = 31 RATIO [...] (test code = 2219) 22 U/L HEMOGLOBIN [id number] 00:00:00 Test Item Value Reference Range Interpretation Comments HEMOGLOBIN A1c (test code = 36852) 7.7 % HEMOGLOBIN [id number] 00:00:00 Test Item Value Reference Range Interpretation Comments HEMOGLOBIN A1c (test code = 04958) 7.7 % HEMOGLOBIN [id number] 00:00:00 Test Item Value Reference Range Interpretation Comments HEMOGLOBIN A1c (test code = 04678) 7.7 % CBC W/AUTO [id number] 00:00:00 Test Item Value Reference Range Interpretation [...] code = 1015) 224 K/UL CBC W/AUTO [id number] 00:00:00 Test Item Value Reference Range Interpretation [...] code = 1015) 224 K/UL CBC W/AUTO [id number] 00:00:00 Test Item Value Reference Range Interpretation [...] TSH (test code = 2821) <0.10 UIU/ML [id number] 00:00:00 Test Item Value Reference Range Interpretation Comments MAGNESIUM (test code = 2226) 1.4 MG/DL [id number] 00:00:00 Test Item Value Reference Range Interpretation Comments MAGNESIUM (test code = 2226) 1.4 MG/DL [id number] 00:00:00 Test Item Value Reference Range Interpretation Comments MAGNESIUM (test code = 2226) 1.4 MG/DL COMPREHENSIVE METABOLIC [id number] 00:00:00 Test Item Value Reference Range Interpretation Comments GLUCOSE (test code = 2217) 234 MG/DL BUN (test code = 2208) 17 MG/DL CREATININE (test code = 2214) 0.54 MG/DL eGFR AMER. (test code 139 ML/MIN/1.73 = 42381) eGFR NON- AMER. (test 120 ML/MIN/1.73 code = 59382) CALC BUN/CREAT (test code = 31 RATIO [...] code = 2219) 22 U/L COMPREHENSIVE METABOLIC [id number] 00:00:00 Test Item Value Reference Range Interpretation Comments GLUCOSE (test code = 2217) 234 MG/DL BUN (test code = 2208) 17 MG/DL CREATININE (test code = 2214) 0.54 MG/DL eGFR AMER. (test code 139 ML/MIN/1.73 = 45957) eGFR NON- AMER. (test 120 ML/MIN/1.73 code = 99775) CALC BUN/CREAT (test code = 31 RATIO [...] (test code = 2219) 22 U/L HEMOGLOBIN [id number] 00:00:00 Test Item Value Reference Range Interpretation Comments HEMOGLOBIN A1c (test code = 66180) 7.7 % HEMOGLOBIN [id number] 00:00:00 Test Item Value Reference Range Interpretation Comments HEMOGLOBIN A1c (test code = 07629) 7.7 % HEMOGLOBIN [id number] 00:00:00 Test Item Value Reference Range Interpretation Comments HEMOGLOBIN A1c (test code = 72517) 7.7 % CBC W/AUTO [id number] 00:00:00 Test Item Value Reference Range Interpretation [...] code = 1015) 224 K/UL CBC W/AUTO [id number] 00:00:00 Test Item Value Reference Range Interpretation [...] code = 1015) 224 K/UL CBC W/AUTO [id number] 00:00:00 Test Item Value Reference Range Interpretation [...] TSH (test code = 2821) <0.10 UIU/ML [id number] 00:00:00 Test Item Value Reference Range Interpretation Comments MAGNESIUM (test code = 2226) 1.4 MG/DL [id number] 00:00:00 Test Item Value Reference Range Interpretation Comments MAGNESIUM (test code = 2226) 1.4 MG/DL [id number] 00:00:00 Test Item Value Reference Range Interpretation Comments MAGNESIUM (test code = 2226) 1.4 MG/DL COMPREHENSIVE METABOLIC [id number] 00:00:00 Test Item Value Reference Range Interpretation Comments GLUCOSE (test code = 2217) 234 MG/DL BUN (test code = 2208) 17 MG/DL CREATININE (test code = 2214) 0.54 MG/DL eGFR AMER. (test code 139 ML/MIN/1.73 = 89600) eGFR NON- AMER. (test 120 ML/MIN/1.73 code = 26009) CALC BUN/CREAT (test code = 31 RATIO [...] code = 2219) 22 U/L COMPREHENSIVE METABOLIC [id number] 00:00:00 Test Item Value Reference Range Interpretation Comments GLUCOSE (test code = 2217) 234 MG/DL BUN (test code = 2208) 17 MG/DL CREATININE (test code = 2214) 0.54 MG/DL eGFR AMER. (test code 139 ML/MIN/1.73 = 10034) eGFR NON- AMER. (test 120 ML/MIN/1.73 code = 84800) CALC BUN/CREAT (test code = 31 RATIO [...] (test code = 2219) 22 U/L HEMOGLOBIN [id number] 00:00:00 Test Item Value Reference Range Interpretation Comments HEMOGLOBIN A1c (test code = 18839) 7.7 % HEMOGLOBIN [id number] 00:00:00 Test Item Value Reference Range Interpretation Comments HEMOGLOBIN A1c (test code = 94382) 7.7 % HEMOGLOBIN [id number] 00:00:00 Test Item Value Reference Range Interpretation Comments HEMOGLOBIN A1c (test code = 20436) 7.7 % CBC W/AUTO [id number] 00:00:00 Test Item Value Reference Range Interpretation [...] code = 1015) 224 K/UL CBC W/AUTO [id number] 00:00:00 Test Item Value Reference Range Interpretation [...] code = 1015) 224 K/UL CBC W/AUTO [id number] 00:00:00 Test Item Value Reference Range Interpretation [...] TSH (test code = 2821) <0.10 UIU/ML [id number] 00:00:00 Test Item Value Reference Range Interpretation Comments MAGNESIUM (test code = 2226) 1.4 MG/DL [id number] 00:00:00 Test Item Value Reference Range Interpretation Comments MAGNESIUM (test code = 2226) 1.4 MG/DL [id number] 00:00:00 Test Item Value Reference Range Interpretation Comments MAGNESIUM (test code = 2226) 1.4 MG/DL [id number] 00:00:00 Test Item Value Reference Range Interpretation Comments MAGNESIUM (test code = 2226) 1.4 MG/DL COMPREHENSIVE METABOLIC [id number] 00:00:00 Test Item Value Reference Range Interpretation Comments GLUCOSE (test code = 2217) 234 MG/DL BUN (test code = 2208) 17 MG/DL CREATININE (test code = 2214) 0.54 MG/DL eGFR AMER. (test code 139 ML/MIN/1.73 = 81031) eGFR NON- AMER. (test 120 ML/MIN/1.73 code = 25271) CALC BUN/CREAT (test code = 31 RATIO [...] code = 2219) 22 U/L COMPREHENSIVE METABOLIC [id number] 00:00:00 Test Item Value Reference Range Interpretation Comments GLUCOSE (test code = 2217) 234 MG/DL BUN (test code = 2208) 17 MG/DL CREATININE (test code = 2214) 0.54 MG/DL eGFR AMER. (test code 139 ML/MIN/1.73 = 20089) eGFR NON- AMER. (test 120 ML/MIN/1.73 code = 15501) CALC BUN/CREAT (test code = 31 RATIO [...] (test code = 2219) 22 U/L HEMOGLOBIN [id number] 00:00:00 Test Item Value Reference Range Interpretation Comments HEMOGLOBIN A1c (test code = 03449) 7.7 % HEMOGLOBIN [id number] 00:00:00 Test Item Value Reference Range Interpretation Comments HEMOGLOBIN A1c (test code = 65181) 7.7 % HEMOGLOBIN [id number] 00:00:00 Test Item Value Reference Range Interpretation Comments HEMOGLOBIN A1c (test code = 32541) 7.7 % [id number] 00:00:00 Test Item Value Reference Range Interpretation Comments MAGNESIUM (test code = 2226) 1.4 MG/DL CBC W/AUTO [id number] 00:00:00 Test Item Value Reference Range Interpretation [...] code = 1015) 224 K/UL CBC W/AUTO [id number] 00:00:00 Test Item Value Reference Range Interpretation [...] code = 1015) 224 K/UL CBC W/AUTO [id number] 00:00:00 Test Item Value Reference Range Interpretation [...] code = 2821) <0.10 UIU/ML COMPREHENSIVE METABOLIC [id number] 00:00:00 Test Item Value Reference Range Interpretation Comments GLUCOSE (test code = 2217) 234 MG/DL BUN (test code = 2208) 17 MG/DL CREATININE (test code = 2214) 0.54 MG/DL eGFR AMER. (test code 139 ML/MIN/1.73 = 45828) eGFR NON- AMER. (test 120 ML/MIN/1.73 code = 85269) CALC BUN/CREAT (test code = 31 RATIO [...] (test code = 2219) 22 U/L HEMOGLOBIN [id number] 00:00:00 Test Item Value Reference Range Interpretation Comments HEMOGLOBIN A1c (test code = 33167) 7.7 % HEMOGLOBIN [id number] 00:00:00 Test Item Value Reference Range Interpretation Comments HEMOGLOBIN A1c (test code = 95090) 7.7 % [id number] 00:00:00 Test Item Value Reference Range Interpretation Comments MAGNESIUM (test code = 2226) 1.4 MG/DL [id number] 00:00:00 Test Item Value Reference Range Interpretation Comments MAGNESIUM (test code = 2226) 1.4 MG/DL [id number] 00:00:00 Test Item Value Reference Range Interpretation Comments MAGNESIUM (test code = 2226) 1.4 MG/DL CBC W/AUTO [id number] 00:00:00 Test Item Value Reference Range Interpretation [...] code = 1015) 224 K/UL COMPREHENSIVE METABOLIC [id number] 00:00:00 Test Item Value Reference Range Interpretation Comments GLUCOSE (test code = 2217) 234 MG/DL BUN (test code = 2208) 17 MG/DL CREATININE (test code = 2214) 0.54 MG/DL eGFR AMER. (test code 139 ML/MIN/1.73 = 85641) eGFR NON- AMER. (test 120 ML/MIN/1.73 code = 47211) CALC BUN/CREAT (test code = 31 RATIO [...] code = 2219) 22 U/L CBC W/AUTO [id number] 00:00:00 Test Item Value Reference Range Interpretation [...] code = 1015) 224 K/UL COMPREHENSIVE METABOLIC [id number] 00:00:00 Test Item Value Reference Range Interpretation Comments GLUCOSE (test code = 2217) 234 MG/DL BUN (test code = 2208) 17 MG/DL CREATININE (test code = 2214) 0.54 MG/DL eGFR AMER. (test code 139 ML/MIN/1.73 = 72354) eGFR NON- AMER. (test 120 ML/MIN/1.73 code = 98009) CALC BUN/CREAT (test code = 31 RATIO [...] (test code = 2219) 22 U/L HEMOGLOBIN [id number] 00:00:00 Test Item Value Reference Range Interpretation Comments HEMOGLOBIN A1c (test code = 15870) 7.7 % HEMOGLOBIN [id number] 00:00:00 Test Item Value Reference Range Interpretation Comments HEMOGLOBIN A1c (test code = 91045) 7.7 % HEMOGLOBIN [id number] 00:00:00 Test Item Value Reference Range Interpretation Comments HEMOGLOBIN A1c (test code = 29523) 7.7 % THYROID II PROFILE (T3U, T4, T7, TSH)[id number] 00:00:00 Test Item Value Reference Range Interpretation Comments T3 UPTAKE (test code = 2817) 24.7 % T4 (THYROXINE) (test code = 3.7 UG/DL 2819) CALCULATED T7 (FTI) (test code = 0.91 2820) TSH (test code = 2821) <0.10 UIU/ML CBC W/AUTO [id number] 00:00:00 Test Item Value Reference Range Interpretation [...] code = 1015) 224 K/UL CBC W/AUTO [id number] 00:00:00 Test Item Value Reference Range Interpretation [...] code = 1015) 224 K/UL CBC W/AUTO [id number] 00:00:00 Test Item Value Reference Range Interpretation [...] TSH (test code = 2821) <0.10 UIU/ML [id number] 00:00:00 Test Item Value Reference Range Interpretation Comments MAGNESIUM (test code = 2226) 1.4 MG/DL [id number] 00:00:00 Test Item Value Reference Range Interpretation Comments MAGNESIUM (test code = 2226) 1.4 MG/DL [id number] 00:00:00 Test Item Value Reference Range Interpretation Comments MAGNESIUM (test code = 2226) 1.4 MG/DL COMPREHENSIVE METABOLIC [id number] 00:00:00 Test Item Value Reference Range Interpretation Comments GLUCOSE (test code = 2217) 234 MG/DL BUN (test code = 2208) 17 MG/DL CREATININE (test code = 2214) 0.54 MG/DL eGFR AMER. (test code 139 ML/MIN/1.73 = 69320) eGFR NON- AMER. (test 120 ML/MIN/1.73 code = 89591) CALC BUN/CREAT (test code = 31 RATIO [...] code = 2219) 22 U/L COMPREHENSIVE METABOLIC [id number] 00:00:00 Test Item Value Reference Range Interpretation Comments GLUCOSE (test code = 2217) 234 MG/DL BUN (test code = 2208) 17 MG/DL CREATININE (test code = 2214) 0.54 MG/DL eGFR AMER. (test code 139 ML/MIN/1.73 = 44037) eGFR NON- AMER. (test 120 ML/MIN/1.73 code = 31972) CALC BUN/CREAT (test code = 31 RATIO [...] (test code = 2219) 22 U/L HEMOGLOBIN [id number] 00:00:00 Test Item Value Reference Range Interpretation Comments HEMOGLOBIN A1c (test code = 57579) 7.7 % HEMOGLOBIN [id number] 00:00:00 Test Item Value Reference Range Interpretation Comments HEMOGLOBIN A1c (test code = 48509) 7.7 % HEMOGLOBIN [id number] 00:00:00 Test Item Value Reference Range Interpretation Comments HEMOGLOBIN A1c (test code = 19443) 7.7 % CBC W/AUTO [id number] 00:00:00 Test Item Value Reference Range Interpretation [...] code = 1015) 224 K/UL CBC W/AUTO [id number] 00:00:00 Test Item Value Reference Range Interpretation [...] code = 1015) 224 K/UL CBC W/AUTO [id number] 00:00:00 Test Item Value Reference Range Interpretation [...] TSH (test code = 2821) <0.10 UIU/ML [id number] 00:00:00 Test Item Value Reference Range Interpretation Comments MAGNESIUM (test code = 2226) 1.4 MG/DL [id number] 00:00:00 Test Item Value Reference Range Interpretation Comments MAGNESIUM (test code = 2226) 1.4 MG/DL [id number] 00:00:00 Test Item Value Reference Range Interpretation Comments MAGNESIUM (test code = 2226) 1.4 MG/DL COMPREHENSIVE METABOLIC [id number] 00:00:00 Test Item Value Reference Range Interpretation Comments GLUCOSE (test code = 2217) 234 MG/DL BUN (test code = 2208) 17 MG/DL CREATININE (test code = 2214) 0.54 MG/DL eGFR AMER. (test code 139 ML/MIN/1.73 = 30334) eGFR NON- AMER. (test 120 ML/MIN/1.73 code = 64035) CALC BUN/CREAT (test code = 31 RATIO [...] code = 2219) 22 U/L COMPREHENSIVE METABOLIC [id number] 00:00:00 Test Item Value Reference Range Interpretation Comments GLUCOSE (test code = 2217) 234 MG/DL BUN (test code = 2208) 17 MG/DL CREATININE (test code = 2214) 0.54 MG/DL eGFR AMER. (test code 139 ML/MIN/1.73 = 80027) eGFR NON- AMER. (test 120 ML/MIN/1.73 code = 45257) CALC BUN/CREAT (test code = 31 RATIO [...] (test code = 2219) 22 U/L HEMOGLOBIN [id number] 00:00:00 Test Item Value Reference Range Interpretation Comments HEMOGLOBIN A1c (test code = 13783) 7.7 % HEMOGLOBIN [id number] 00:00:00 Test Item Value Reference Range Interpretation Comments HEMOGLOBIN A1c (test code = 43881) 7.7 % HEMOGLOBIN [id number] 00:00:00 Test Item Value Reference Range Interpretation Comments HEMOGLOBIN A1c (test code = 37578) 7.7 % CBC W/AUTO [id number] 00:00:00 Test Item Value Reference Range Interpretation [...] code = 1015) 224 K/UL CBC W/AUTO [id number] 00:00:00 Test Item Value Reference Range Interpretation [...] code = 1015) 224 K/UL CBC W/AUTO [id number] 00:00:00 Test Item Value Reference Range Interpretation [...] <0.10 UIU/ML MARKO (ANTI-NUCLEAR AB) WITH REFLEX [id number] 00:00:00 Test Item Value Reference Range Interpretation Comments ANTI-NUCLEAR ANTIBODIES (test code = NEGATIVE 3506) MARKO (ANTI-NUCLEAR AB) WITH REFLEX [id number] 00:00:00 Test Item Value Reference Range Interpretation Comments ANTI-NUCLEAR ANTIBODIES (test code = NEGATIVE 3506) DHEA [id number] 00:00:00 Test Item Value Reference Range Interpretation Comments DHEA SULFATE (test code = 4225) 77 UG/DL DHEA [id number] 00:00:00 Test Item Value Reference Range Interpretation Comments DHEA SULFATE (test code = 4225) 77 UG/DL MARKO (ANTI-NUCLEAR AB) WITH REFLEX [id number] 00:00:00 Test Item Value Reference Range Interpretation Comments ANTI-NUCLEAR ANTIBODIES (test code = NEGATIVE 3506) MARKO (ANTI-NUCLEAR AB) WITH REFLEX [id number] 00:00:00 Test Item Value Reference Range Interpretation Comments ANTI-NUCLEAR ANTIBODIES (test code = NEGATIVE 3506) DHEA [id number] 00:00:00 Test Item Value Reference Range Interpretation Comments DHEA SULFATE (test code = 4225) 77 UG/DL DHEA [id number] 00:00:00 Test Item Value Reference Range Interpretation Comments DHEA SULFATE (test code = 4225) 77 UG/DL MARKO (ANTI-NUCLEAR AB) WITH REFLEX [id number] 00:00:00 Test Item Value Reference Range Interpretation Comments ANTI-NUCLEAR ANTIBODIES (test code = NEGATIVE 3506) MARKO (ANTI-NUCLEAR AB) WITH REFLEX [id number] 00:00:00 Test Item Value Reference Range Interpretation Comments ANTI-NUCLEAR ANTIBODIES (test code = NEGATIVE 3506) DHEA [id number] 00:00:00 Test Item Value Reference Range Interpretation Comments DHEA SULFATE (test code = 4225) 77 UG/DL DHEA [id number] 00:00:00 Test Item Value Reference Range Interpretation Comments DHEA SULFATE (test code = 4225) 77 UG/DL MARKO (ANTI-NUCLEAR AB) WITH REFLEX [id number] 00:00:00 Test Item Value Reference Range Interpretation Comments ANTI-NUCLEAR ANTIBODIES (test code = NEGATIVE 3506) MARKO (ANTI-NUCLEAR AB) WITH REFLEX [id number] 00:00:00 Test Item Value Reference Range Interpretation Comments ANTI-NUCLEAR ANTIBODIES (test code = NEGATIVE 3506) DHEA [id number] 00:00:00 Test Item Value Reference Range Interpretation Comments DHEA SULFATE (test code = 4225) 77 UG/DL DHEA [id number] 00:00:00 Test Item Value Reference Range Interpretation Comments DHEA SULFATE (test code = 4225) 77 UG/DL MARKO (ANTI-NUCLEAR AB) WITH REFLEX [id number] 00:00:00 Test Item Value Reference Range Interpretation Comments ANTI-NUCLEAR ANTIBODIES (test code = NEGATIVE 3506) MARKO (ANTI-NUCLEAR AB) WITH REFLEX [id number] 00:00:00 Test Item Value Reference Range Interpretation Comments ANTI-NUCLEAR ANTIBODIES (test code = NEGATIVE 3506) DHEA [id number] 00:00:00 Test Item Value Reference Range Interpretation Comments DHEA SULFATE (test code = 4225) 77 UG/DL DHEA [id number] 00:00:00 Test Item Value Reference Range Interpretation Comments DHEA SULFATE (test code = 4225) 77 UG/DL MARKO (ANTI-NUCLEAR AB) WITH REFLEX [id number] 00:00:00 Test Item Value Reference Range Interpretation Comments ANTI-NUCLEAR ANTIBODIES (test code = NEGATIVE 3506) MARKO (ANTI-NUCLEAR AB) WITH REFLEX [id number] 00:00:00 Test Item Value Reference Range Interpretation Comments ANTI-NUCLEAR ANTIBODIES (test code = NEGATIVE 3506) DHEA [id number] 00:00:00 Test Item Value Reference Range Interpretation Comments DHEA SULFATE (test code = 4225) 77 UG/DL DHEA [id number] 00:00:00 Test Item Value Reference Range Interpretation Comments DHEA SULFATE (test code = 4225) 77 UG/DL MARKO (ANTI-NUCLEAR AB) WITH REFLEX [id number] 00:00:00 Test Item Value Reference Range Interpretation Comments ANTI-NUCLEAR ANTIBODIES (test code = NEGATIVE 3506) MARKO (ANTI-NUCLEAR AB) WITH REFLEX [id number] 00:00:00 Test Item Value Reference Range Interpretation Comments ANTI-NUCLEAR ANTIBODIES (test code = NEGATIVE 3506) DHEA [id number] 00:00:00 Test Item Value Reference Range Interpretation Comments DHEA SULFATE (test code = 4225) 77 UG/DL DHEA [id number] 00:00:00 Test Item Value Reference Range Interpretation Comments DHEA SULFATE (test code = 4225) 77 UG/DL MARKO (ANTI-NUCLEAR AB) WITH REFLEX [id number] 00:00:00 Test Item Value Reference Range Interpretation Comments ANTI-NUCLEAR ANTIBODIES (test code = NEGATIVE 3506) MARKO (ANTI-NUCLEAR AB) WITH REFLEX [id number] 00:00:00 Test Item Value Reference Range Interpretation Comments ANTI-NUCLEAR ANTIBODIES (test code = NEGATIVE 3506) MARKO (ANTI-NUCLEAR AB) WITH REFLEX [id number] 00:00:00 Test Item Value Reference Range Interpretation Comments ANTI-NUCLEAR ANTIBODIES (test code = NEGATIVE 3506) DHEA [id number] 00:00:00 Test Item Value Reference Range Interpretation Comments DHEA SULFATE (test code = 4225) 77 UG/DL DHEA [id number] 00:00:00 Test Item Value Reference Range Interpretation Comments DHEA SULFATE (test code = 4225) 77 UG/DL DHEA [id number] 00:00:00 Test Item Value Reference Range Interpretation Comments DHEA SULFATE (test code = 4225) 77 UG/DL MARKO (ANTI-NUCLEAR AB) WITH REFLEX [id number] 00:00:00 Test Item Value Reference Range Interpretation Comments ANTI-NUCLEAR ANTIBODIES (test code = NEGATIVE 3506) MARKO (ANTI-NUCLEAR AB) WITH REFLEX [id number] 00:00:00 Test Item Value Reference Range Interpretation Comments ANTI-NUCLEAR ANTIBODIES (test code = NEGATIVE 3506) DHEA [id number] 00:00:00 Test Item Value Reference Range Interpretation Comments DHEA SULFATE (test code = 4225) 77 UG/DL DHEA [id number] 00:00:00 Test Item Value Reference Range Interpretation Comments DHEA SULFATE (test code = 4225) 77 UG/DL MARKO (ANTI-NUCLEAR AB) WITH REFLEX [id number] 00:00:00 Test Item Value Reference Range Interpretation Comments ANTI-NUCLEAR ANTIBODIES (test code = NEGATIVE 3506) MARKO (ANTI-NUCLEAR AB) WITH REFLEX [id number] 00:00:00 Test Item Value Reference Range Interpretation Comments ANTI-NUCLEAR ANTIBODIES (test code = NEGATIVE 3506) DHEA [id number] 00:00:00 Test Item Value Reference Range Interpretation Comments DHEA SULFATE (test code = 4225) 77 UG/DL DHEA [id number] 00:00:00 Test Item Value Reference Range Interpretation Comments DHEA SULFATE (test code = 4225) 77 UG/DL VITAMIN D,1,08-[id number] 00:00:00 Test Item Value Reference Range Interpretation Comments VITAMIN D,1,25-DIHYDROXY (test 11.3 PG/ML code = 4960) VITAMIN D,1,91-[id number] 00:00:00 Test Item Value Reference Range Interpretation Comments VITAMIN D,1,25-DIHYDROXY (test 11.3 PG/ML code = 4960) VITAMIN B 12 AND FOLIC [id number] 00:00:00 Test Item Value Reference Range Interpretation Comments VITAMIN B-12 (test code = 2840) 925 PG/ML FOLIC ACID (test code = 2695) >24.0 NG/ML VITAMIN B 12 AND FOLIC [id number] 00:00:00 Test Item Value Reference Range Interpretation [...] (test code = 2821) 0.4 UIU/ML LIPID [id number] 00:00:00 Test Item Value Reference Range Interpretation Comments CHOLESTEROL (test code = 2210) 172 MG/DL TRIGLYCERIDES (test code = 2232) 136 MG/DL HDL CHOLESTEROL (test code = 2220) 44 MG/DL CALC LDL CHOL (test code = 2237) 101 MG/DL RISK RATIO LDL/HDL (test code = 2.29 RATIO 2238) LIPID [id number] 00:00:00 Test Item Value Reference Range Interpretation Comments CHOLESTEROL (test code = 2210) 172 MG/DL TRIGLYCERIDES (test code = 2232) 136 MG/DL HDL CHOLESTEROL (test code = 2220) 44 MG/DL CALC LDL CHOL (test code = 2237) 101 MG/DL RISK RATIO LDL/HDL (test code = 2.29 RATIO 2238) [id number] 00:00:00 Test Item Value Reference Range Interpretation Comments TESTOSTERONE (test code = 2830) <12 NG/DL TESTOSTERONE REF RANGE (test code = (NOTE) 63618) [id number] 00:00:00 Test Item Value Reference Range Interpretation Comments TESTOSTERONE (test code = 2830) <12 NG/DL TESTOSTERONE REF RANGE (test code = (NOTE) 62977) [id number] 00:00:00 Test Item Value Reference Range Interpretation Comments PROLACTIN (test code = 2800) 5.8 NG/ML [id number] 00:00:00 Test Item Value Reference Range Interpretation Comments PROLACTIN (test code = 2800) 5.8 NG/ML FSH + LH [id number] 00:00:00 Test Item Value Reference Range Interpretation Comments FOLLICLE STIM HORMONE (test code = 8.9 MIU/ML 2700) LUTEINIZING HORMONE (test code = 6.5 MIU/ML 2776) FSH + LH [id number] 00:00:00 Test Item Value Reference Range Interpretation Comments FOLLICLE STIM HORMONE (test code = 8.9 MIU/ML 2700) LUTEINIZING HORMONE (test code = 6.5 MIU/ML 2776) VITAMIN D,1,56-[id number] 00:00:00 Test Item Value Reference Range Interpretation Comments VITAMIN D,1,25-DIHYDROXY (test 11.3 PG/ML code = 4960) VITAMIN D,1,32-[id number] 00:00:00 Test Item Value Reference Range Interpretation Comments VITAMIN D,1,25-DIHYDROXY (test 11.3 PG/ML code = 4960) VITAMIN B 12 AND FOLIC [id number] 00:00:00 Test Item Value Reference Range Interpretation Comments VITAMIN B-12 (test code = 2840) 925 PG/ML FOLIC ACID (test code = 2695) >24.0 NG/ML VITAMIN B 12 AND FOLIC [id number] 00:00:00 Test Item Value Reference Range Interpretation [...] (test code = 2821) 0.4 UIU/ML LIPID [id number] 00:00:00 Test Item Value Reference Range Interpretation Comments CHOLESTEROL (test code = 2210) 172 MG/DL TRIGLYCERIDES (test code = 2232) 136 MG/DL HDL CHOLESTEROL (test code = 2220) 44 MG/DL CALC LDL CHOL (test code = 2237) 101 MG/DL RISK RATIO LDL/HDL (test code = 2.29 RATIO 2238) LIPID [id number] 00:00:00 Test Item Value Reference Range Interpretation Comments CHOLESTEROL (test code = 2210) 172 MG/DL TRIGLYCERIDES (test code = 2232) 136 MG/DL HDL CHOLESTEROL (test code = 2220) 44 MG/DL CALC LDL CHOL (test code = 2237) 101 MG/DL RISK RATIO LDL/HDL (test code = 2.29 RATIO 2238) [id number] 00:00:00 Test Item Value Reference Range Interpretation Comments TESTOSTERONE (test code = 2830) <12 NG/DL TESTOSTERONE REF RANGE (test code = (NOTE) 37638) [id number] 00:00:00 Test Item Value Reference Range Interpretation Comments TESTOSTERONE (test code = 2830) <12 NG/DL TESTOSTERONE REF RANGE (test code = (NOTE) 86388) [id number] 00:00:00 Test Item Value Reference Range Interpretation Comments PROLACTIN (test code = 2800) 5.8 NG/ML [id number] 00:00:00 Test Item Value Reference Range Interpretation Comments PROLACTIN (test code = 2800) 5.8 NG/ML FSH + LH [id number] 00:00:00 Test Item Value Reference Range Interpretation Comments FOLLICLE STIM HORMONE (test code = 8.9 MIU/ML 2700) LUTEINIZING HORMONE (test code = 6.5 MIU/ML 2776) FSH + LH [id number] 00:00:00 Test Item Value Reference Range Interpretation Comments FOLLICLE STIM HORMONE (test code = 8.9 MIU/ML 2700) LUTEINIZING HORMONE (test code = 6.5 MIU/ML 2776) VITAMIN D,1,12-[id number] 00:00:00 Test Item Value Reference Range Interpretation Comments VITAMIN D,1,25-DIHYDROXY (test 11.3 PG/ML code = 4960) VITAMIN D,1,68-[id number] 00:00:00 Test Item Value Reference Range Interpretation Comments VITAMIN D,1,25-DIHYDROXY (test 11.3 PG/ML code = 4960) VITAMIN B 12 AND FOLIC [id number] 00:00:00 Test Item Value Reference Range Interpretation Comments VITAMIN B-12 (test code = 2840) 925 PG/ML FOLIC ACID (test code = 2695) >24.0 NG/ML VITAMIN B 12 AND FOLIC [id number] 00:00:00 Test Item Value Reference Range Interpretation [...] (test code = 2821) 0.4 UIU/ML LIPID [id number] 00:00:00 Test Item Value Reference Range Interpretation Comments CHOLESTEROL (test code = 2210) 172 MG/DL TRIGLYCERIDES (test code = 2232) 136 MG/DL HDL CHOLESTEROL (test code = 2220) 44 MG/DL CALC LDL CHOL (test code = 2237) 101 MG/DL RISK RATIO LDL/HDL (test code = 2.29 RATIO 2238) LIPID [id number] 00:00:00 Test Item Value Reference Range Interpretation Comments CHOLESTEROL (test code = 2210) 172 MG/DL TRIGLYCERIDES (test code = 2232) 136 MG/DL HDL CHOLESTEROL (test code = 2220) 44 MG/DL CALC LDL CHOL (test code = 2237) 101 MG/DL RISK RATIO LDL/HDL (test code = 2.29 RATIO 2238) [id number] 00:00:00 Test Item Value Reference Range Interpretation Comments TESTOSTERONE (test code = 2830) <12 NG/DL TESTOSTERONE REF RANGE (test code = (NOTE) 88009) [id number] 00:00:00 Test Item Value Reference Range Interpretation Comments TESTOSTERONE (test code = 2830) <12 NG/DL TESTOSTERONE REF RANGE (test code = (NOTE) 42802) [id number] 00:00:00 Test Item Value Reference Range Interpretation Comments PROLACTIN (test code = 2800) 5.8 NG/ML [id number] 00:00:00 Test Item Value Reference Range Interpretation Comments PROLACTIN (test code = 2800) 5.8 NG/ML FSH + LH [id number] 00:00:00 Test Item Value Reference Range Interpretation Comments FOLLICLE STIM HORMONE (test code = 8.9 MIU/ML 2700) LUTEINIZING HORMONE (test code = 6.5 MIU/ML 2776) FSH + LH [id number] 00:00:00 Test Item Value Reference Range Interpretation Comments FOLLICLE STIM HORMONE (test code = 8.9 MIU/ML 2700) LUTEINIZING HORMONE (test code = 6.5 MIU/ML 2776) VITAMIN D,1,67-[id number] 00:00:00 Test Item Value Reference Range Interpretation Comments VITAMIN D,1,25-DIHYDROXY (test 11.3 PG/ML code = 4960) VITAMIN D,1,30-[id number] 00:00:00 Test Item Value Reference Range Interpretation Comments VITAMIN D,1,25-DIHYDROXY (test 11.3 PG/ML code = 4960) VITAMIN B 12 AND FOLIC [id number] 00:00:00 Test Item Value Reference Range Interpretation Comments VITAMIN B-12 (test code = 2840) 925 PG/ML FOLIC ACID (test code = 2695) >24.0 NG/ML VITAMIN B 12 AND FOLIC [id number] 00:00:00 Test Item Value Reference Range Interpretation [...] (test code = 2821) 0.4 UIU/ML LIPID [id number] 00:00:00 Test Item Value Reference Range Interpretation Comments CHOLESTEROL (test code = 2210) 172 MG/DL TRIGLYCERIDES (test code = 2232) 136 MG/DL HDL CHOLESTEROL (test code = 2220) 44 MG/DL CALC LDL CHOL (test code = 2237) 101 MG/DL RISK RATIO LDL/HDL (test code = 2.29 RATIO 2238) LIPID [id number] 00:00:00 Test Item Value Reference Range Interpretation Comments CHOLESTEROL (test code = 2210) 172 MG/DL TRIGLYCERIDES (test code = 2232) 136 MG/DL HDL CHOLESTEROL (test code = 2220) 44 MG/DL CALC LDL CHOL (test code = 2237) 101 MG/DL RISK RATIO LDL/HDL (test code = 2.29 RATIO 2238) [id number] 00:00:00 Test Item Value Reference Range Interpretation Comments TESTOSTERONE (test code = 2830) <12 NG/DL TESTOSTERONE REF RANGE (test code = (NOTE) 73462) [id number] 00:00:00 Test Item Value Reference Range Interpretation Comments TESTOSTERONE (test code = 2830) <12 NG/DL TESTOSTERONE REF RANGE (test code = (NOTE) 03880) [id number] 00:00:00 Test Item Value Reference Range Interpretation Comments PROLACTIN (test code = 2800) 5.8 NG/ML [id number] 00:00:00 Test Item Value Reference Range Interpretation Comments PROLACTIN (test code = 2800) 5.8 NG/ML FSH + LH [id number] 00:00:00 Test Item Value Reference Range Interpretation Comments FOLLICLE STIM HORMONE (test code = 8.9 MIU/ML 2700) LUTEINIZING HORMONE (test code = 6.5 MIU/ML 2776) FSH + LH [id number] 00:00:00 Test Item Value Reference Range Interpretation Comments FOLLICLE STIM HORMONE (test code = 8.9 MIU/ML 2700) LUTEINIZING HORMONE (test code = 6.5 MIU/ML 2776) VITAMIN D,1,71-[id number] 00:00:00 Test Item Value Reference Range Interpretation Comments VITAMIN D,1,25-DIHYDROXY (test 11.3 PG/ML code = 4960) VITAMIN D,1,47-[id number] 00:00:00 Test Item Value Reference Range Interpretation Comments VITAMIN D,1,25-DIHYDROXY (test 11.3 PG/ML code = 4960) VITAMIN B 12 AND FOLIC [id number] 00:00:00 Test Item Value Reference Range Interpretation Comments VITAMIN B-12 (test code = 2840) 925 PG/ML FOLIC ACID (test code = 2695) >24.0 NG/ML VITAMIN B 12 AND FOLIC [id number] 00:00:00 Test Item Value Reference Range Interpretation [...] (test code = 2821) 0.4 UIU/ML LIPID [id number] 00:00:00 Test Item Value Reference Range Interpretation Comments CHOLESTEROL (test code = 2210) 172 MG/DL TRIGLYCERIDES (test code = 2232) 136 MG/DL HDL CHOLESTEROL (test code = 2220) 44 MG/DL CALC LDL CHOL (test code = 2237) 101 MG/DL RISK RATIO LDL/HDL (test code = 2.29 RATIO 2238) LIPID [id number] 00:00:00 Test Item Value Reference Range Interpretation Comments CHOLESTEROL (test code = 2210) 172 MG/DL TRIGLYCERIDES (test code = 2232) 136 MG/DL HDL CHOLESTEROL (test code = 2220) 44 MG/DL CALC LDL CHOL (test code = 2237) 101 MG/DL RISK RATIO LDL/HDL (test code = 2.29 RATIO 2238) [id number] 00:00:00 Test Item Value Reference Range Interpretation Comments TESTOSTERONE (test code = 2830) <12 NG/DL TESTOSTERONE REF RANGE (test code = (NOTE) 28080) [id number] 00:00:00 Test Item Value Reference Range Interpretation Comments TESTOSTERONE (test code = 2830) <12 NG/DL TESTOSTERONE REF RANGE (test code = (NOTE) 27664) [id number] 00:00:00 Test Item Value Reference Range Interpretation Comments PROLACTIN (test code = 2800) 5.8 NG/ML [id number] 00:00:00 Test Item Value Reference Range Interpretation Comments PROLACTIN (test code = 2800) 5.8 NG/ML FSH + LH [id number] 00:00:00 Test Item Value Reference Range Interpretation Comments FOLLICLE STIM HORMONE (test code = 8.9 MIU/ML 2700) LUTEINIZING HORMONE (test code = 6.5 MIU/ML 2776) FSH + LH [id number] 00:00:00 Test Item Value Reference Range Interpretation Comments FOLLICLE STIM HORMONE (test code = 8.9 MIU/ML 2700) LUTEINIZING HORMONE (test code = 6.5 MIU/ML 2776) VITAMIN D,1,11-[id number] 00:00:00 Test Item Value Reference Range Interpretation Comments VITAMIN D,1,25-DIHYDROXY (test 11.3 PG/ML code = 4960) VITAMIN D,1,13-[id number] 00:00:00 Test Item Value Reference Range Interpretation Comments VITAMIN D,1,25-DIHYDROXY (test 11.3 PG/ML code = 4960) VITAMIN B 12 AND FOLIC [id number] 00:00:00 Test Item Value Reference Range Interpretation Comments VITAMIN B-12 (test code = 2840) 925 PG/ML FOLIC ACID (test code = 2695) >24.0 NG/ML VITAMIN B 12 AND FOLIC [id number] 00:00:00 Test Item Value Reference Range Interpretation [...] (test code = 2821) 0.4 UIU/ML LIPID [id number] 00:00:00 Test Item Value Reference Range Interpretation Comments CHOLESTEROL (test code = 2210) 172 MG/DL TRIGLYCERIDES (test code = 2232) 136 MG/DL HDL CHOLESTEROL (test code = 2220) 44 MG/DL CALC LDL CHOL (test code = 2237) 101 MG/DL RISK RATIO LDL/HDL (test code = 2.29 RATIO 2238) LIPID [id number] 00:00:00 Test Item Value Reference Range Interpretation Comments CHOLESTEROL (test code = 2210) 172 MG/DL TRIGLYCERIDES (test code = 2232) 136 MG/DL HDL CHOLESTEROL (test code = 2220) 44 MG/DL CALC LDL CHOL (test code = 2237) 101 MG/DL RISK RATIO LDL/HDL (test code = 2.29 RATIO 2238) [id number] 00:00:00 Test Item Value Reference Range Interpretation Comments TESTOSTERONE (test code = 2830) <12 NG/DL TESTOSTERONE REF RANGE (test code = (NOTE) 14625) [id number] 00:00:00 Test Item Value Reference Range Interpretation Comments TESTOSTERONE (test code = 2830) <12 NG/DL TESTOSTERONE REF RANGE (test code = (NOTE) 11757) [id number] 00:00:00 Test Item Value Reference Range Interpretation Comments PROLACTIN (test code = 2800) 5.8 NG/ML [id number] 00:00:00 Test Item Value Reference Range Interpretation Comments PROLACTIN (test code = 2800) 5.8 NG/ML FSH + LH [id number] 00:00:00 Test Item Value Reference Range Interpretation Comments FOLLICLE STIM HORMONE (test code = 8.9 MIU/ML 2700) LUTEINIZING HORMONE (test code = 6.5 MIU/ML 2776) FSH + LH [id number] 00:00:00 Test Item Value Reference Range Interpretation Comments FOLLICLE STIM HORMONE (test code = 8.9 MIU/ML 2700) LUTEINIZING HORMONE (test code = 6.5 MIU/ML 2776) VITAMIN D,1,36-[id number] 00:00:00 Test Item Value Reference Range Interpretation Comments VITAMIN D,1,25-DIHYDROXY (test 11.3 PG/ML code = 4960) VITAMIN D,1,22-[id number] 00:00:00 Test Item Value Reference Range Interpretation Comments VITAMIN D,1,25-DIHYDROXY (test 11.3 PG/ML code = 4960) VITAMIN B 12 AND FOLIC [id number] 00:00:00 Test Item Value Reference Range Interpretation Comments VITAMIN B-12 (test code = 2840) 925 PG/ML FOLIC ACID (test code = 2695) >24.0 NG/ML VITAMIN B 12 AND FOLIC [id number] 00:00:00 Test Item Value Reference Range Interpretation [...] (test code = 2821) 0.4 UIU/ML LIPID [id number] 00:00:00 Test Item Value Reference Range Interpretation Comments CHOLESTEROL (test code = 2210) 172 MG/DL TRIGLYCERIDES (test code = 2232) 136 MG/DL HDL CHOLESTEROL (test code = 2220) 44 MG/DL CALC LDL CHOL (test code = 2237) 101 MG/DL RISK RATIO LDL/HDL (test code = 2.29 RATIO 2238) LIPID [id number] 00:00:00 Test Item Value Reference Range Interpretation Comments CHOLESTEROL (test code = 2210) 172 MG/DL TRIGLYCERIDES (test code = 2232) 136 MG/DL HDL CHOLESTEROL (test code = 2220) 44 MG/DL CALC LDL CHOL (test code = 2237) 101 MG/DL RISK RATIO LDL/HDL (test code = 2.29 RATIO 2238) [id number] 00:00:00 Test Item Value Reference Range Interpretation Comments TESTOSTERONE (test code = 2830) <12 NG/DL TESTOSTERONE REF RANGE (test code = (NOTE) 80868) [id number] 00:00:00 Test Item Value Reference Range Interpretation Comments TESTOSTERONE (test code = 2830) <12 NG/DL TESTOSTERONE REF RANGE (test code = (NOTE) 73210) [id number] 00:00:00 Test Item Value Reference Range Interpretation Comments PROLACTIN (test code = 2800) 5.8 NG/ML [id number] 00:00:00 Test Item Value Reference Range Interpretation Comments PROLACTIN (test code = 2800) 5.8 NG/ML FSH + LH [id number] 00:00:00 Test Item Value Reference Range Interpretation Comments FOLLICLE STIM HORMONE (test code = 8.9 MIU/ML 2700) LUTEINIZING HORMONE (test code = 6.5 MIU/ML 2776) FSH + LH [id number] 00:00:00 Test Item Value Reference Range Interpretation Comments FOLLICLE STIM HORMONE (test code = 8.9 MIU/ML 2700) LUTEINIZING HORMONE (test code = 6.5 MIU/ML 2776) VITAMIN D,1,50-[id number] 00:00:00 Test Item Value Reference Range Interpretation Comments VITAMIN D,1,25-DIHYDROXY (test 11.3 PG/ML code = 4960) VITAMIN B 12 AND FOLIC [id number] 00:00:00 Test Item Value Reference Range Interpretation [...] (test code = 2821) 0.4 UIU/ML VITAMIN D,1,12-[id number] 00:00:00 Test Item Value Reference Range Interpretation Comments VITAMIN D,1,25-DIHYDROXY (test 11.3 PG/ML code = 4960) VITAMIN D,1,32-[id number] 00:00:00 Test Item Value Reference Range Interpretation Comments VITAMIN D,1,25-DIHYDROXY (test 11.3 PG/ML code = 4960) VITAMIN B 12 AND FOLIC [id number] 00:00:00 Test Item Value Reference Range Interpretation Comments VITAMIN B-12 (test code = 2840) 925 PG/ML FOLIC ACID (test code = 2695) >24.0 NG/ML VITAMIN B 12 AND FOLIC [id number] 00:00:00 Test Item Value Reference Range Interpretation [...] (test code = 2821) 0.4 UIU/ML LIPID [id number] 00:00:00 Test Item Value Reference Range Interpretation Comments CHOLESTEROL (test code = 2210) 172 MG/DL TRIGLYCERIDES (test code = 2232) 136 MG/DL HDL CHOLESTEROL (test code = 2220) 44 MG/DL CALC LDL CHOL (test code = 2237) 101 MG/DL RISK RATIO LDL/HDL (test code = 2.29 RATIO 2238) LIPID [id number] 00:00:00 Test Item Value Reference Range Interpretation Comments CHOLESTEROL (test code = 2210) 172 MG/DL TRIGLYCERIDES (test code = 2232) 136 MG/DL HDL CHOLESTEROL (test code = 2220) 44 MG/DL CALC LDL CHOL (test code = 2237) 101 MG/DL RISK RATIO LDL/HDL (test code = 2.29 RATIO 2238) [id number] 00:00:00 Test Item Value Reference Range Interpretation Comments TESTOSTERONE (test code = 2830) <12 NG/DL TESTOSTERONE REF RANGE (test code = (NOTE) 89462) [id number] 00:00:00 Test Item Value Reference Range Interpretation Comments TESTOSTERONE (test code = 2830) <12 NG/DL TESTOSTERONE REF RANGE (test code = (NOTE) 84224) [id number] 00:00:00 Test Item Value Reference Range Interpretation Comments PROLACTIN (test code = 2800) 5.8 NG/ML [id number] 00:00:00 Test Item Value Reference Range Interpretation Comments PROLACTIN (test code = 2800) 5.8 NG/ML FSH + LH [id number] 00:00:00 Test Item Value Reference Range Interpretation Comments FOLLICLE STIM HORMONE (test code = 8.9 MIU/ML 2700) LUTEINIZING HORMONE (test code = 6.5 MIU/ML 2776) FSH + LH [id number] 00:00:00 Test Item Value Reference Range Interpretation Comments FOLLICLE STIM HORMONE (test code = 8.9 MIU/ML 2700) LUTEINIZING HORMONE (test code = 6.5 MIU/ML 2776) LIPID [id number] 00:00:00 Test Item Value Reference Range Interpretation Comments CHOLESTEROL (test code = 2210) 172 MG/DL TRIGLYCERIDES (test code = 2232) 136 MG/DL HDL CHOLESTEROL (test code = 2220) 44 MG/DL CALC LDL CHOL (test code = 2237) 101 MG/DL RISK RATIO LDL/HDL (test code = 2.29 RATIO 2238) [id number] 00:00:00 Test Item Value Reference Range Interpretation Comments TESTOSTERONE (test code = 2830) <12 NG/DL TESTOSTERONE REF RANGE (test code = (NOTE) 40054) [id number] 00:00:00 Test Item Value Reference Range Interpretation Comments PROLACTIN (test code = 2800) 5.8 NG/ML FSH + LH [id number] 00:00:00 Test Item Value Reference Range Interpretation Comments FOLLICLE STIM HORMONE (test code = 8.9 MIU/ML 2700) LUTEINIZING HORMONE (test code = 6.5 MIU/ML 2776) VITAMIN D,1,34-[id number] 00:00:00 Test Item Value Reference Range Interpretation Comments VITAMIN D,1,25-DIHYDROXY (test 11.3 PG/ML code = 4960) VITAMIN D,1,62-[id number] 00:00:00 Test Item Value Reference Range Interpretation Comments VITAMIN D,1,25-DIHYDROXY (test 11.3 PG/ML code = 4960) VITAMIN B 12 AND FOLIC [id number] 00:00:00 Test Item Value Reference Range Interpretation Comments VITAMIN B-12 (test code = 2840) 925 PG/ML FOLIC ACID (test code = 2695) >24.0 NG/ML VITAMIN B 12 AND FOLIC [id number] 00:00:00 Test Item Value Reference Range Interpretation [...] (test code = 2821) 0.4 UIU/ML LIPID [id number] 00:00:00 Test Item Value Reference Range Interpretation Comments CHOLESTEROL (test code = 2210) 172 MG/DL TRIGLYCERIDES (test code = 2232) 136 MG/DL HDL CHOLESTEROL (test code = 2220) 44 MG/DL CALC LDL CHOL (test code = 2237) 101 MG/DL RISK RATIO LDL/HDL (test code = 2.29 RATIO 2238) LIPID [id number] 00:00:00 Test Item Value Reference Range Interpretation Comments CHOLESTEROL (test code = 2210) 172 MG/DL TRIGLYCERIDES (test code = 2232) 136 MG/DL HDL CHOLESTEROL (test code = 2220) 44 MG/DL CALC LDL CHOL (test code = 2237) 101 MG/DL RISK RATIO LDL/HDL (test code = 2.29 RATIO 2238) [id number] 00:00:00 Test Item Value Reference Range Interpretation Comments TESTOSTERONE (test code = 2830) <12 NG/DL TESTOSTERONE REF RANGE (test code = (NOTE) 13461) [id number] 00:00:00 Test Item Value Reference Range Interpretation Comments TESTOSTERONE (test code = 2830) <12 NG/DL TESTOSTERONE REF RANGE (test code = (NOTE) 79987) [id number] 00:00:00 Test Item Value Reference Range Interpretation Comments PROLACTIN (test code = 2800) 5.8 NG/ML [id number] 00:00:00 Test Item Value Reference Range Interpretation Comments PROLACTIN (test code = 2800) 5.8 NG/ML FSH + LH [id number] 00:00:00 Test Item Value Reference Range Interpretation Comments FOLLICLE STIM HORMONE (test code = 8.9 MIU/ML 2700) LUTEINIZING HORMONE (test code = 6.5 MIU/ML 2776) FSH + LH [id number] 00:00:00 Test Item Value Reference Range Interpretation Comments FOLLICLE STIM HORMONE (test code = 8.9 MIU/ML 2700) LUTEINIZING HORMONE (test code = 6.5 MIU/ML 2776) VITAMIN D,1,01-[id number] 00:00:00 Test Item Value Reference Range Interpretation Comments VITAMIN D,1,25-DIHYDROXY (test 11.3 PG/ML code = 4960) VITAMIN D,1,95-[id number] 00:00:00 Test Item Value Reference Range Interpretation Comments VITAMIN D,1,25-DIHYDROXY (test 11.3 PG/ML code = 4960) VITAMIN B 12 AND FOLIC [id number] 00:00:00 Test Item Value Reference Range Interpretation Comments VITAMIN B-12 (test code = 2840) 925 PG/ML FOLIC ACID (test code = 2695) >24.0 NG/ML VITAMIN B 12 AND FOLIC [id number] 00:00:00 Test Item Value Reference Range Interpretation [...] (test code = 2821) 0.4 UIU/ML LIPID [id number] 00:00:00 Test Item Value Reference Range Interpretation Comments CHOLESTEROL (test code = 2210) 172 MG/DL TRIGLYCERIDES (test code = 2232) 136 MG/DL HDL CHOLESTEROL (test code = 2220) 44 MG/DL CALC LDL CHOL (test code = 2237) 101 MG/DL RISK RATIO LDL/HDL (test code = 2.29 RATIO 2238) LIPID [id number] 00:00:00 Test Item Value Reference Range Interpretation Comments CHOLESTEROL (test code = 2210) 172 MG/DL TRIGLYCERIDES (test code = 2232) 136 MG/DL HDL CHOLESTEROL (test code = 2220) 44 MG/DL CALC LDL CHOL (test code = 2237) 101 MG/DL RISK RATIO LDL/HDL (test code = 2.29 RATIO 2238) [id number] 00:00:00 Test Item Value Reference Range Interpretation Comments TESTOSTERONE (test code = 2830) <12 NG/DL TESTOSTERONE REF RANGE (test code = (NOTE) 35207) [id number] 00:00:00 Test Item Value Reference Range Interpretation Comments TESTOSTERONE (test code = 2830) <12 NG/DL TESTOSTERONE REF RANGE (test code = (NOTE) 04584) [id number] 00:00:00 Test Item Value Reference Range Interpretation Comments PROLACTIN (test code = 2800) 5.8 NG/ML [id number] 00:00:00 Test Item Value Reference Range Interpretation Comments PROLACTIN (test code = 2800) 5.8 NG/ML FSH + LH [id number] 00:00:00 Test Item Value Reference Range Interpretation Comments FOLLICLE STIM HORMONE (test code = 8.9 MIU/ML 2700) LUTEINIZING HORMONE (test code = 6.5 MIU/ML 2776) FSH + LH [id number] 00:00:00 Test Item Value Reference Range Interpretation Comments FOLLICLE STIM HORMONE (test code = 8.9 MIU/ML 2700) LUTEINIZING HORMONE (test code = 6.5 MIU/ML 2776) SEDIMENTATION [id number] 00:00:00 Test Item Value Reference Range Interpretation Comments SEDIMENTATION RATE (test code = 35 MM/HOUR 1017) SEDIMENTATION [id number] 00:00:00 Test Item Value Reference Range Interpretation Comments SEDIMENTATION RATE (test code = 35 MM/HOUR 1017) CBC W/AUTO [id number] 00:00:00 Test Item Value Reference Range Interpretation [...] code = 1015) 246 K/UL CBC W/AUTO [id number] 00:00:00 Test Item Value Reference Range Interpretation [...] code = 1015) 246 K/UL CBC W/AUTO [id number] 00:00:00 Test Item Value Reference Range Interpretation [...] (test code = 1015) 246 K/UL HEMOGLOBIN [id number] 00:00:00 Test Item Value Reference Range Interpretation Comments HEMOGLOBIN A1c (test code = 46252) 6.2 % HEMOGLOBIN [id number] 00:00:00 Test Item Value Reference Range Interpretation Comments HEMOGLOBIN A1c (test code = 59759) 6.2 % HEMOGLOBIN [id number] 00:00:00 Test Item Value Reference Range Interpretation Comments HEMOGLOBIN A1c (test code = 45793) 6.2 % SEDIMENTATION [id number] 00:00:00 Test Item Value Reference Range Interpretation Comments SEDIMENTATION RATE (test code = 35 MM/HOUR 1017) SEDIMENTATION [id number] 00:00:00 Test Item Value Reference Range Interpretation Comments SEDIMENTATION RATE (test code = 35 MM/HOUR 1017) CBC W/AUTO [id number] 00:00:00 Test Item Value Reference Range Interpretation [...] code = 1015) 246 K/UL CBC W/AUTO [id number] 00:00:00 Test Item Value Reference Range Interpretation [...] code = 1015) 246 K/UL CBC W/AUTO [id number] 00:00:00 Test Item Value Reference Range Interpretation [...] (test code = 1015) 246 K/UL HEMOGLOBIN [id number] 00:00:00 Test Item Value Reference Range Interpretation Comments HEMOGLOBIN A1c (test code = 49710) 6.2 % HEMOGLOBIN [id number] 00:00:00 Test Item Value Reference Range Interpretation Comments HEMOGLOBIN A1c (test code = 69271) 6.2 % HEMOGLOBIN [id number] 00:00:00 Test Item Value Reference Range Interpretation Comments HEMOGLOBIN A1c (test code = 02066) 6.2 % SEDIMENTATION [id number] 00:00:00 Test Item Value Reference Range Interpretation Comments SEDIMENTATION RATE (test code = 35 MM/HOUR 1017) SEDIMENTATION [id number] 00:00:00 Test Item Value Reference Range Interpretation Comments SEDIMENTATION RATE (test code = 35 MM/HOUR 1017) CBC W/AUTO [id number] 00:00:00 Test Item Value Reference Range Interpretation [...] code = 1015) 246 K/UL CBC W/AUTO [id number] 00:00:00 Test Item Value Reference Range Interpretation [...] code = 1015) 246 K/UL CBC W/AUTO [id number] 00:00:00 Test Item Value Reference Range Interpretation [...] (test code = 1015) 246 K/UL HEMOGLOBIN [id number] 00:00:00 Test Item Value Reference Range Interpretation Comments HEMOGLOBIN A1c (test code = 49359) 6.2 % HEMOGLOBIN [id number] 00:00:00 Test Item Value Reference Range Interpretation Comments HEMOGLOBIN A1c (test code = 81638) 6.2 % HEMOGLOBIN [id number] 00:00:00 Test Item Value Reference Range Interpretation Comments HEMOGLOBIN A1c (test code = 61877) 6.2 % SEDIMENTATION [id number] 00:00:00 Test Item Value Reference Range Interpretation Comments SEDIMENTATION RATE (test code = 35 MM/HOUR 1017) SEDIMENTATION [id number] 00:00:00 Test Item Value Reference Range Interpretation Comments SEDIMENTATION RATE (test code = 35 MM/HOUR 1017) CBC W/AUTO [id number] 00:00:00 Test Item Value Reference Range Interpretation [...] code = 1015) 246 K/UL CBC W/AUTO [id number] 00:00:00 Test Item Value Reference Range Interpretation [...] code = 1015) 246 K/UL CBC W/AUTO [id number] 00:00:00 Test Item Value Reference Range Interpretation [...] (test code = 1015) 246 K/UL HEMOGLOBIN [id number] 00:00:00 Test Item Value Reference Range Interpretation Comments HEMOGLOBIN A1c (test code = 60839) 6.2 % HEMOGLOBIN [id number] 00:00:00 Test Item Value Reference Range Interpretation Comments HEMOGLOBIN A1c (test code = 04049) 6.2 % HEMOGLOBIN [id number] 00:00:00 Test Item Value Reference Range Interpretation Comments HEMOGLOBIN A1c (test code = 20268) 6.2 % SEDIMENTATION [id number] 00:00:00 Test Item Value Reference Range Interpretation Comments SEDIMENTATION RATE (test code = 35 MM/HOUR 1017) SEDIMENTATION [id number] 00:00:00 Test Item Value Reference Range Interpretation Comments SEDIMENTATION RATE (test code = 35 MM/HOUR 1017) CBC W/AUTO [id number] 00:00:00 Test Item Value Reference Range Interpretation [...] code = 1015) 246 K/UL CBC W/AUTO [id number] 00:00:00 Test Item Value Reference Range Interpretation [...] code = 1015) 246 K/UL CBC W/AUTO [id number] 00:00:00 Test Item Value Reference Range Interpretation [...] (test code = 1015) 246 K/UL HEMOGLOBIN [id number] 00:00:00 Test Item Value Reference Range Interpretation Comments HEMOGLOBIN A1c (test code = 35901) 6.2 % HEMOGLOBIN [id number] 00:00:00 Test Item Value Reference Range Interpretation Comments HEMOGLOBIN A1c (test code = 71584) 6.2 % HEMOGLOBIN [id number] 00:00:00 Test Item Value Reference Range Interpretation Comments HEMOGLOBIN A1c (test code = 31821) 6.2 % SEDIMENTATION [id number] 00:00:00 Test Item Value Reference Range Interpretation Comments SEDIMENTATION RATE (test code = 35 MM/HOUR 1017) SEDIMENTATION [id number] 00:00:00 Test Item Value Reference Range Interpretation Comments SEDIMENTATION RATE (test code = 35 MM/HOUR 1017) CBC W/AUTO [id number] 00:00:00 Test Item Value Reference Range Interpretation [...] code = 1015) 246 K/UL CBC W/AUTO [id number] 00:00:00 Test Item Value Reference Range Interpretation [...] code = 1015) 246 K/UL CBC W/AUTO [id number] 00:00:00 Test Item Value Reference Range Interpretation [...] (test code = 1015) 246 K/UL HEMOGLOBIN [id number] 00:00:00 Test Item Value Reference Range Interpretation Comments HEMOGLOBIN A1c (test code = 23077) 6.2 % HEMOGLOBIN [id number] 00:00:00 Test Item Value Reference Range Interpretation Comments HEMOGLOBIN A1c (test code = 77116) 6.2 % HEMOGLOBIN [id number] 00:00:00 Test Item Value Reference Range Interpretation Comments HEMOGLOBIN A1c (test code = 60639) 6.2 % SEDIMENTATION [id number] 00:00:00 Test Item Value Reference Range Interpretation Comments SEDIMENTATION RATE (test code = 35 MM/HOUR 1017) SEDIMENTATION [id number] 00:00:00 Test Item Value Reference Range Interpretation Comments SEDIMENTATION RATE (test code = 35 MM/HOUR 1017) CBC W/AUTO [id number] 00:00:00 Test Item Value Reference Range Interpretation [...] code = 1015) 246 K/UL CBC W/AUTO [id number] 00:00:00 Test Item Value Reference Range Interpretation [...] code = 1015) 246 K/UL CBC W/AUTO [id number] 00:00:00 Test Item Value Reference Range Interpretation [...] (test code = 1015) 246 K/UL HEMOGLOBIN [id number] 00:00:00 Test Item Value Reference Range Interpretation Comments HEMOGLOBIN A1c (test code = 77273) 6.2 % HEMOGLOBIN [id number] 00:00:00 Test Item Value Reference Range Interpretation Comments HEMOGLOBIN A1c (test code = 45713) 6.2 % HEMOGLOBIN [id number] 00:00:00 Test Item Value Reference Range Interpretation Comments HEMOGLOBIN A1c (test code = 55935) 6.2 % SEDIMENTATION [id number] 00:00:00 Test Item Value Reference Range Interpretation Comments SEDIMENTATION RATE (test code = 35 MM/HOUR 1017) SEDIMENTATION [id number] 00:00:00 Test Item Value Reference Range Interpretation Comments SEDIMENTATION RATE (test code = 35 MM/HOUR 1017) SEDIMENTATION [id number] 00:00:00 Test Item Value Reference Range Interpretation Comments SEDIMENTATION RATE (test code = 35 MM/HOUR 1017) CBC W/AUTO [id number] 00:00:00 Test Item Value Reference Range Interpretation [...] code = 1015) 246 K/UL CBC W/AUTO [id number] 00:00:00 Test Item Value Reference Range Interpretation [...] code = 1015) 246 K/UL CBC W/AUTO [id number] 00:00:00 Test Item Value Reference Range Interpretation [...] code = 1015) 246 K/UL CBC W/AUTO [id number] 00:00:00 Test Item Value Reference Range Interpretation [...] (test code = 1015) 246 K/UL HEMOGLOBIN [id number] 00:00:00 Test Item Value Reference Range Interpretation Comments HEMOGLOBIN A1c (test code = 26066) 6.2 % HEMOGLOBIN [id number] 00:00:00 Test Item Value Reference Range Interpretation Comments HEMOGLOBIN A1c (test code = 04059) 6.2 % HEMOGLOBIN [id number] 00:00:00 Test Item Value Reference Range Interpretation Comments HEMOGLOBIN A1c (test code = 32499) 6.2 % CBC W/AUTO [id number] 00:00:00 Test Item Value Reference Range Interpretation [...] (test code = 1015) 246 K/UL HEMOGLOBIN [id number] 00:00:00 Test Item Value Reference Range Interpretation Comments HEMOGLOBIN A1c (test code = 57180) 6.2 % HEMOGLOBIN [id number] 00:00:00 Test Item Value Reference Range Interpretation Comments HEMOGLOBIN A1c (test code = 66463) 6.2 % SEDIMENTATION [id number] 00:00:00 Test Item Value Reference Range Interpretation Comments SEDIMENTATION RATE (test code = 35 MM/HOUR 1017) SEDIMENTATION [id number] 00:00:00 Test Item Value Reference Range Interpretation Comments SEDIMENTATION RATE (test code = 35 MM/HOUR 1017) CBC W/AUTO [id number] 00:00:00 Test Item Value Reference Range Interpretation [...] code = 1015) 246 K/UL CBC W/AUTO [id number] 00:00:00 Test Item Value Reference Range Interpretation [...] code = 1015) 246 K/UL CBC W/AUTO [id number] 00:00:00 Test Item Value Reference Range Interpretation [...] (test code = 1015) 246 K/UL HEMOGLOBIN [id number] 00:00:00 Test Item Value Reference Range Interpretation Comments HEMOGLOBIN A1c (test code = 42637) 6.2 % HEMOGLOBIN [id number] 00:00:00 Test Item Value Reference Range Interpretation Comments HEMOGLOBIN A1c (test code = 84680) 6.2 % HEMOGLOBIN [id number] 00:00:00 Test Item Value Reference Range Interpretation Comments HEMOGLOBIN A1c (test code = 44777) 6.2 % SEDIMENTATION [id number] 00:00:00 Test Item Value Reference Range Interpretation Comments SEDIMENTATION RATE (test code = 35 MM/HOUR 1017) SEDIMENTATION [id number] 00:00:00 Test Item Value Reference Range Interpretation Comments SEDIMENTATION RATE (test code = 35 MM/HOUR 1017) CBC W/AUTO [id number] 00:00:00 Test Item Value Reference Range Interpretation [...] code = 1015) 246 K/UL CBC W/AUTO [id number] 00:00:00 Test Item Value Reference Range Interpretation [...] code = 1015) 246 K/UL CBC W/AUTO [id number] 00:00:00 Test Item Value Reference Range Interpretation [...] (test code = 1015) 246 K/UL HEMOGLOBIN [id number] 00:00:00 Test Item Value Reference Range Interpretation Comments HEMOGLOBIN A1c (test code = 36706) 6.2 % HEMOGLOBIN [id number] 00:00:00 Test Item Value Reference Range Interpretation Comments HEMOGLOBIN A1c (test code = 57357) 6.2 % HEMOGLOBIN [id number] 00:00:00 Test Item Value Reference Range Interpretation Comments HEMOGLOBIN A1c (test code = 36600) 6.2 % COMPREHENSIVE METABOLIC [id number] 00:00:00 Test Item Value Reference Range Interpretation Comments GLUCOSE (test code = 2217) 100 MG/DL BUN (test code = 2208) 10 MG/DL CREATININE (test code = 2214) 0.61 MG/DL eGFR AMER. (test code 134 ML/MIN/1.73 = 29916) eGFR NON- AMER. (test 116 ML/MIN/1.73 code = 56069) CALCULATED BUN/CREAT (test 16 RATIO code = [...] code = 2219) 16 U/L COMPREHENSIVE METABOLIC [id number] 00:00:00 Test Item Value Reference Range Interpretation Comments GLUCOSE (test code = 2217) 100 MG/DL BUN (test code = 2208) 10 MG/DL CREATININE (test code = 2214) 0.61 MG/DL eGFR AMER. (test code 134 ML/MIN/1.73 = 65721) eGFR NON- AMER. (test 116 ML/MIN/1.73 code = 88802) CALCULATED BUN/CREAT (test 16 RATIO code = [...] (test code = 2219) 16 U/L LIPID [id number] 00:00:00 Test Item Value Reference Range Interpretation Comments CHOLESTEROL (test code = 2210) 166 MG/DL TRIGLYCERIDES (test code = 2232) 72 MG/DL HDL CHOLESTEROL (test code = 2220) 47 MG/DL CALCULATED LDL CHOL (test code = 105 MG/DL 2237) RISK RATIO LDL/HDL (test code = 2.23 RATIO 2238) LIPID [id number] 00:00:00 Test Item Value Reference Range Interpretation Comments CHOLESTEROL (test code = 2210) 166 MG/DL TRIGLYCERIDES (test code = 2232) 72 MG/DL HDL CHOLESTEROL (test code = 2220) 47 MG/DL CALCULATED LDL CHOL (test code = 105 MG/DL 2237) RISK RATIO LDL/HDL (test code = 2.23 RATIO 2238) [id number] 00:00:00 Test Item Value Reference Range Interpretation Comments TSH (test code = 2821) 1.2 UIU/ML [id number] 00:00:00 Test Item Value Reference Range Interpretation Comments TSH (test code = 2821) 1.2 UIU/ML [id number] 00:00:00 Test Item Value Reference Range Interpretation Comments TSH (test code = 2821) 1.2 UIU/ML COMPREHENSIVE METABOLIC [id number] 00:00:00 Test Item Value Reference Range Interpretation Comments GLUCOSE (test code = 2217) 100 MG/DL BUN (test code = 2208) 10 MG/DL CREATININE (test code = 2214) 0.61 MG/DL eGFR AMER. (test code 134 ML/MIN/1.73 = 91735) eGFR NON- AMER. (test 116 ML/MIN/1.73 code = 36372) CALCULATED BUN/CREAT (test 16 RATIO code = [...] code = 2219) 16 U/L COMPREHENSIVE METABOLIC [id number] 00:00:00 Test Item Value Reference Range Interpretation Comments GLUCOSE (test code = 2217) 100 MG/DL BUN (test code = 2208) 10 MG/DL CREATININE (test code = 2214) 0.61 MG/DL eGFR AMER. (test code 134 ML/MIN/1.73 = 91930) eGFR NON- AMER. (test 116 ML/MIN/1.73 code = 75808) CALCULATED BUN/CREAT (test 16 RATIO code = [...] (test code = 2219) 16 U/L LIPID [id number] 00:00:00 Test Item Value Reference Range Interpretation Comments CHOLESTEROL (test code = 2210) 166 MG/DL TRIGLYCERIDES (test code = 2232) 72 MG/DL HDL CHOLESTEROL (test code = 2220) 47 MG/DL CALCULATED LDL CHOL (test code = 105 MG/DL 2236) RISK RATIO LDL/HDL (test code = 2.23 RATIO 2238) LIPID [id number] 00:00:00 Test Item Value Reference Range Interpretation Comments CHOLESTEROL (test code = 2210) 166 MG/DL TRIGLYCERIDES (test code = 2232) 72 MG/DL HDL CHOLESTEROL (test code = 2220) 47 MG/DL CALCULATED LDL CHOL (test code = 105 MG/DL 2236) RISK RATIO LDL/HDL (test code = 2.23 RATIO 2238) [id number] 00:00:00 Test Item Value Reference Range Interpretation Comments TSH (test code = 2821) 1.2 UIU/ML [id number] 00:00:00 Test Item Value Reference Range Interpretation Comments TSH (test code = 2821) 1.2 UIU/ML [id number] 00:00:00 Test Item Value Reference Range Interpretation Comments TSH (test code = 2821) 1.2 UIU/ML COMPREHENSIVE METABOLIC [id number] 00:00:00 Test Item Value Reference Range Interpretation Comments GLUCOSE (test code = 2217) 100 MG/DL BUN (test code = 2208) 10 MG/DL CREATININE (test code = 2214) 0.61 MG/DL eGFR AMER. (test code 134 ML/MIN/1.73 = 28853) eGFR NON- AMER. (test 116 ML/MIN/1.73 code = 61672) CALCULATED BUN/CREAT (test 16 RATIO code = [...] code = 2219) 16 U/L COMPREHENSIVE METABOLIC [id number] 00:00:00 Test Item Value Reference Range Interpretation Comments GLUCOSE (test code = 2217) 100 MG/DL BUN (test code = 2208) 10 MG/DL CREATININE (test code = 2214) 0.61 MG/DL eGFR AMER. (test code 134 ML/MIN/1.73 = 96909) eGFR NON- AMER. (test 116 ML/MIN/1.73 code = 91212) CALCULATED BUN/CREAT (test 16 RATIO code = [...] (test code = 2219) 16 U/L LIPID [id number] 00:00:00 Test Item Value Reference Range Interpretation Comments CHOLESTEROL (test code = 2210) 166 MG/DL TRIGLYCERIDES (test code = 2232) 72 MG/DL HDL CHOLESTEROL (test code = 2220) 47 MG/DL CALCULATED LDL CHOL (test code = 105 MG/DL 2237) RISK RATIO LDL/HDL (test code = 2.23 RATIO 2238) LIPID [id number] 00:00:00 Test Item Value Reference Range Interpretation Comments CHOLESTEROL (test code = 2210) 166 MG/DL TRIGLYCERIDES (test code = 2232) 72 MG/DL HDL CHOLESTEROL (test code = 2220) 47 MG/DL CALCULATED LDL CHOL (test code = 105 MG/DL 2237) RISK RATIO LDL/HDL (test code = 2.23 RATIO 2238) [id number] 00:00:00 Test Item Value Reference Range Interpretation Comments TSH (test code = 2821) 1.2 UIU/ML [id number] 00:00:00 Test Item Value Reference Range Interpretation Comments TSH (test code = 2821) 1.2 UIU/ML [id number] 00:00:00 Test Item Value Reference Range Interpretation Comments TSH (test code = 2821) 1.2 UIU/ML COMPREHENSIVE METABOLIC [id number] 00:00:00 Test Item Value Reference Range Interpretation Comments GLUCOSE (test code = 2217) 100 MG/DL BUN (test code = 2208) 10 MG/DL CREATININE (test code = 2214) 0.61 MG/DL eGFR AMER. (test code 134 ML/MIN/1.73 = 40561) eGFR NON- AMER. (test 116 ML/MIN/1.73 code = 04347) CALCULATED BUN/CREAT (test 16 RATIO code = [...] code = 2219) 16 U/L COMPREHENSIVE METABOLIC [id number] 00:00:00 Test Item Value Reference Range Interpretation Comments GLUCOSE (test code = 2217) 100 MG/DL BUN (test code = 2208) 10 MG/DL CREATININE (test code = 2214) 0.61 MG/DL eGFR AMER. (test code 134 ML/MIN/1.73 = 54147) eGFR NON- AMER. (test 116 ML/MIN/1.73 code = 23928) CALCULATED BUN/CREAT (test 16 RATIO code = [...] (test code = 2219) 16 U/L LIPID [id number] 00:00:00 Test Item Value Reference Range Interpretation Comments CHOLESTEROL (test code = 2210) 166 MG/DL TRIGLYCERIDES (test code = 2232) 72 MG/DL HDL CHOLESTEROL (test code = 2220) 47 MG/DL CALCULATED LDL CHOL (test code = 105 MG/DL 2237) RISK RATIO LDL/HDL (test code = 2.23 RATIO 2238) LIPID [id number] 00:00:00 Test Item Value Reference Range Interpretation Comments CHOLESTEROL (test code = 2210) 166 MG/DL TRIGLYCERIDES (test code = 2232) 72 MG/DL HDL CHOLESTEROL (test code = 2220) 47 MG/DL CALCULATED LDL CHOL (test code = 105 MG/DL 2237) RISK RATIO LDL/HDL (test code = 2.23 RATIO 2238) [id number] 00:00:00 Test Item Value Reference Range Interpretation Comments TSH (test code = 2821) 1.2 UIU/ML [id number] 00:00:00 Test Item Value Reference Range Interpretation Comments TSH (test code = 2821) 1.2 UIU/ML [id number] 00:00:00 Test Item Value Reference Range Interpretation Comments TSH (test code = 2821) 1.2 UIU/ML COMPREHENSIVE METABOLIC [id number] 00:00:00 Test Item Value Reference Range Interpretation Comments GLUCOSE (test code = 2217) 100 MG/DL BUN (test code = 2208) 10 MG/DL CREATININE (test code = 2214) 0.61 MG/DL eGFR AMER. (test code 134 ML/MIN/1.73 = 01155) eGFR NON- AMER. (test 116 ML/MIN/1.73 code = 18567) CALCULATED BUN/CREAT (test 16 RATIO code = [...] code = 2219) 16 U/L COMPREHENSIVE METABOLIC [id number] 00:00:00 Test Item Value Reference Range Interpretation Comments GLUCOSE (test code = 2217) 100 MG/DL BUN (test code = 2208) 10 MG/DL CREATININE (test code = 2214) 0.61 MG/DL eGFR AMER. (test code 134 ML/MIN/1.73 = 06557) eGFR NON- AMER. (test 116 ML/MIN/1.73 code = 67643) CALCULATED BUN/CREAT (test 16 RATIO code = [...] (test code = 2219) 16 U/L LIPID [id number] 00:00:00 Test Item Value Reference Range Interpretation Comments CHOLESTEROL (test code = 2210) 166 MG/DL TRIGLYCERIDES (test code = 2232) 72 MG/DL HDL CHOLESTEROL (test code = 2220) 47 MG/DL CALCULATED LDL CHOL (test code = 105 MG/DL 2237) RISK RATIO LDL/HDL (test code = 2.23 RATIO 2238) LIPID [id number] 00:00:00 Test Item Value Reference Range Interpretation Comments CHOLESTEROL (test code = 2210) 166 MG/DL TRIGLYCERIDES (test code = 2232) 72 MG/DL HDL CHOLESTEROL (test code = 2220) 47 MG/DL CALCULATED LDL CHOL (test code = 105 MG/DL 2237) RISK RATIO LDL/HDL (test code = 2.23 RATIO 2238) [id number] 00:00:00 Test Item Value Reference Range Interpretation Comments TSH (test code = 2821) 1.2 UIU/ML [id number] 00:00:00 Test Item Value Reference Range Interpretation Comments TSH (test code = 2821) 1.2 UIU/ML [id number] 00:00:00 Test Item Value Reference Range Interpretation Comments TSH (test code = 2821) 1.2 UIU/ML COMPREHENSIVE METABOLIC [id number] 00:00:00 Test Item Value Reference Range Interpretation Comments GLUCOSE (test code = 2217) 100 MG/DL BUN (test code = 2208) 10 MG/DL CREATININE (test code = 2214) 0.61 MG/DL eGFR AMER. (test code 134 ML/MIN/1.73 = 87231) eGFR NON- AMER. (test 116 ML/MIN/1.73 code = 25848) CALCULATED BUN/CREAT (test 16 RATIO code = [...] code = 2219) 16 U/L COMPREHENSIVE METABOLIC [id number] 00:00:00 Test Item Value Reference Range Interpretation Comments GLUCOSE (test code = 2217) 100 MG/DL BUN (test code = 2208) 10 MG/DL CREATININE (test code = 2214) 0.61 MG/DL eGFR AMER. (test code 134 ML/MIN/1.73 = 42497) eGFR NON- AMER. (test 116 ML/MIN/1.73 code = 48764) CALCULATED BUN/CREAT (test 16 RATIO code = [...] (test code = 2219) 16 U/L LIPID [id number] 00:00:00 Test Item Value Reference Range Interpretation Comments CHOLESTEROL (test code = 2210) 166 MG/DL TRIGLYCERIDES (test code = 2232) 72 MG/DL HDL CHOLESTEROL (test code = 2220) 47 MG/DL CALCULATED LDL CHOL (test code = 105 MG/DL 2236) RISK RATIO LDL/HDL (test code = 2.23 RATIO 2237) LIPID [id number] 00:00:00 Test Item Value Reference Range Interpretation Comments CHOLESTEROL (test code = 2210) 166 MG/DL TRIGLYCERIDES (test code = 2232) 72 MG/DL HDL CHOLESTEROL (test code = 2220) 47 MG/DL CALCULATED LDL CHOL (test code = 105 MG/DL 2236) RISK RATIO LDL/HDL (test code = 2.23 RATIO 2238) [id number] 00:00:00 Test Item Value Reference Range Interpretation Comments TSH (test code = 2821) 1.2 UIU/ML [id number] 00:00:00 Test Item Value Reference Range Interpretation Comments TSH (test code = 2821) 1.2 UIU/ML [id number] 00:00:00 Test Item Value Reference Range Interpretation Comments TSH (test code = 2821) 1.2 UIU/ML COMPREHENSIVE METABOLIC [id number] 00:00:00 Test Item Value Reference Range Interpretation Comments GLUCOSE (test code = 2217) 100 MG/DL BUN (test code = 2208) 10 MG/DL CREATININE (test code = 2214) 0.61 MG/DL eGFR AMER. (test code 134 ML/MIN/1.73 = 02924) eGFR NON- AMER. (test 116 ML/MIN/1.73 code = 43011) CALCULATED BUN/CREAT (test 16 RATIO code = [...] code = 2219) 16 U/L COMPREHENSIVE METABOLIC [id number] 00:00:00 Test Item Value Reference Range Interpretation Comments GLUCOSE (test code = 2217) 100 MG/DL BUN (test code = 2208) 10 MG/DL CREATININE (test code = 2214) 0.61 MG/DL eGFR AMER. (test code 134 ML/MIN/1.73 = 08247) eGFR NON- AMER. (test 116 ML/MIN/1.73 code = 45466) CALCULATED BUN/CREAT (test 16 RATIO code = [...] = 0.2 MG/DL 220) ALKALINE PHOSPHATASE (test 35 U/L code = 2204) SGOT (AST) (test code = 2218) 16 U/L SGPT (ALT) (test code = 2219) 16 U/L COMPREHENSIVE METABOLIC [id number] 00:00:00 Test Item Value Reference Range Interpretation Comments GLUCOSE (test code = 2217) 100 MG/DL BUN (test code = 2208) 10 MG/DL CREATININE (test code = 2214) 0.61 MG/DL eGFR AMER. (test code 134 ML/MIN/1.73 = 31019) eGFR NON- AMER. (test 116 ML/MIN/1.73 code = 91787) CALCULATED BUN/CREAT (test 16 RATIO code = [...] (test code = 2219) 16 U/L LIPID [id number] 00:00:00 Test Item Value Reference Range Interpretation Comments CHOLESTEROL (test code = 2210) 166 MG/DL TRIGLYCERIDES (test code = 2232) 72 MG/DL HDL CHOLESTEROL (test code = 2220) 47 MG/DL CALCULATED LDL CHOL (test code = 105 MG/DL 2237) RISK RATIO LDL/HDL (test code = 2.23 RATIO 2238) LIPID [id number] 00:00:00 Test Item Value Reference Range Interpretation Comments CHOLESTEROL (test code = 2210) 166 MG/DL TRIGLYCERIDES (test code = 2232) 72 MG/DL HDL CHOLESTEROL (test code = 2220) 47 MG/DL CALCULATED LDL CHOL (test code = 105 MG/DL 2237) RISK RATIO LDL/HDL (test code = 2.23 RATIO 2238) [id number] 00:00:00 Test Item Value Reference Range Interpretation Comments TSH (test code = 2821) 1.2 UIU/ML [id number] 00:00:00 Test Item Value Reference Range Interpretation Comments TSH (test code = 2821) 1.2 UIU/ML [id number] 00:00:00 Test Item Value Reference Range Interpretation Comments TSH (test code = 2821) 1.2 UIU/ML LIPID [id number] 00:00:00 Test Item Value Reference Range Interpretation Comments CHOLESTEROL (test code = 2210) 166 MG/DL TRIGLYCERIDES (test code = 2232) 72 MG/DL HDL CHOLESTEROL (test code = 2220) 47 MG/DL CALCULATED LDL CHOL (test code = 105 MG/DL 2237) RISK RATIO LDL/HDL (test code = 2.23 RATIO 2238) COMPREHENSIVE METABOLIC [id number] 00:00:00 Test Item Value Reference Range Interpretation Comments GLUCOSE (test code = 2217) 100 MG/DL BUN (test code = 2208) 10 MG/DL CREATININE (test code = 2214) 0.61 MG/DL eGFR AMER. (test code 134 ML/MIN/1.73 = 32046) eGFR NON- AMER. (test 116 ML/MIN/1.73 code = 48484) CALCULATED BUN/CREAT (test 16 RATIO code = [...] code = 2219) 16 U/L COMPREHENSIVE METABOLIC [id number] 00:00:00 Test Item Value Reference Range Interpretation Comments GLUCOSE (test code = 2217) 100 MG/DL BUN (test code = 2208) 10 MG/DL CREATININE (test code = 2214) 0.61 MG/DL eGFR AMER. (test code 134 ML/MIN/1.73 = 77034) eGFR NON- AMER. (test 116 ML/MIN/1.73 code = 89872) CALCULATED BUN/CREAT (test 16 RATIO code = [...] (test code = 2219) 16 U/L LIPID [id number] 00:00:00 Test Item Value Reference Range Interpretation Comments CHOLESTEROL (test code = 2210) 166 MG/DL TRIGLYCERIDES (test code = 2232) 72 MG/DL HDL CHOLESTEROL (test code = 2220) 47 MG/DL CALCULATED LDL CHOL (test code = 105 MG/DL 2237) RISK RATIO LDL/HDL (test code = 2.23 RATIO 2238) LIPID [id number] 00:00:00 Test Item Value Reference Range Interpretation Comments CHOLESTEROL (test code = 2210) 166 MG/DL TRIGLYCERIDES (test code = 2232) 72 MG/DL HDL CHOLESTEROL (test code = 2220) 47 MG/DL CALCULATED LDL CHOL (test code = 105 MG/DL 2237) RISK RATIO LDL/HDL (test code = 2.23 RATIO 2238) [id number] 00:00:00 Test Item Value Reference Range Interpretation Comments TSH (test code = 2821) 1.2 UIU/ML [id number] 00:00:00 Test Item Value Reference Range Interpretation Comments TSH (test code = 2821) 1.2 UIU/ML [id number] 00:00:00 Test Item Value Reference Range Interpretation Comments TSH (test code = 2821) 1.2 UIU/ML [id number] 00:00:00 Test Item Value Reference Range Interpretation Comments TSH (test code = 2821) 1.2 UIU/ML [id number] 00:00:00 Test Item Value Reference Range Interpretation Comments TSH (test code = 2821) 1.2 UIU/ML COMPREHENSIVE METABOLIC [id number] 00:00:00 Test Item Value Reference Range Interpretation Comments GLUCOSE (test code = 2217) 100 MG/DL BUN (test code = 2208) 10 MG/DL CREATININE (test code = 2214) 0.61 MG/DL eGFR AMER. (test code 134 ML/MIN/1.73 = 18491) eGFR NON- AMER. (test 116 ML/MIN/1.73 code = 06833) CALCULATED BUN/CREAT (test 16 RATIO code = [...] code = 2219) 16 U/L COMPREHENSIVE METABOLIC [id number] 00:00:00 Test Item Value Reference Range Interpretation Comments GLUCOSE (test code = 2217) 100 MG/DL BUN (test code = 2208) 10 MG/DL CREATININE (test code = 2214) 0.61 MG/DL eGFR AMER. (test code 134 ML/MIN/1.73 = 08438) eGFR NON- AMER. (test 116 ML/MIN/1.73 code = 06855) CALCULATED BUN/CREAT (test 16 RATIO code = [...] (test code = 2219) 16 U/L LIPID [id number] 00:00:00 Test Item Value Reference Range Interpretation Comments CHOLESTEROL (test code = 2210) 166 MG/DL TRIGLYCERIDES (test code = 2232) 72 MG/DL HDL CHOLESTEROL (test code = 2220) 47 MG/DL CALCULATED LDL CHOL (test code = 105 MG/DL 2237) RISK RATIO LDL/HDL (test code = 2.23 RATIO 2238) LIPID [id number] 00:00:00 Test Item Value Reference Range Interpretation Comments CHOLESTEROL (test code = 2210) 166 MG/DL TRIGLYCERIDES (test code = 2232) 72 MG/DL HDL CHOLESTEROL (test code = 2220) 47 MG/DL CALCULATED LDL CHOL (test code = 105 MG/DL 2237) RISK RATIO LDL/HDL (test code = 2.23 RATIO 2238) [id number] 00:00:00 Test Item Value Reference Range Interpretation Comments TSH (test code = 2821) 1.2 UIU/ML [id number] 00:00:00 Test Item Value Reference Range Interpretation Comments TSH (test code = 2821) 1.2 UIU/ML [id number] 00:00:00 Test Item Value Reference Range Interpretation Comments TSH (test code = 2821) 1.2 UIU/ML COMPREHENSIVE METABOLIC [id number] 00:00:00 Test Item Value Reference Range Interpretation Comments GLUCOSE (test code = 2217) 100 MG/DL BUN (test code = 2208) 10 MG/DL CREATININE (test code = 2214) 0.61 MG/DL eGFR AMER. (test code 134 ML/MIN/1.73 = 43561) eGFR NON- AMER. (test 116 ML/MIN/1.73 code = 69443) CALCULATED BUN/CREAT (test 16 RATIO code = [...] code = 2219) 16 U/L COMPREHENSIVE METABOLIC [id number] 00:00:00 Test Item Value Reference Range Interpretation Comments GLUCOSE (test code = 2217) 100 MG/DL BUN (test code = 2208) 10 MG/DL CREATININE (test code = 2214) 0.61 MG/DL eGFR AMER. (test code 134 ML/MIN/1.73 = 57981) eGFR NON- AMER. (test 116 ML/MIN/1.73 code = 83014) CALCULATED BUN/CREAT (test 16 RATIO code = [...] (test code = 2219) 16 U/L LIPID [id number] 00:00:00 Test Item Value Reference Range Interpretation Comments CHOLESTEROL (test code = 2210) 166 MG/DL TRIGLYCERIDES (test code = 2232) 72 MG/DL HDL CHOLESTEROL (test code = 2220) 47 MG/DL CALCULATED LDL CHOL (test code = 105 MG/DL 2236) RISK RATIO LDL/HDL (test code = 2.23 RATIO 2238) LIPID [id number] 00:00:00 Test Item Value Reference Range Interpretation Comments CHOLESTEROL (test code = 2210) 166 MG/DL TRIGLYCERIDES (test code = 2232) 72 MG/DL HDL CHOLESTEROL (test code = 2220) 47 MG/DL CALCULATED LDL CHOL (test code = 105 MG/DL 2236) RISK RATIO LDL/HDL (test code = 2.23 RATIO 8) [id number] 00:00:00 Test Item Value Reference Range Interpretation Comments TSH (test code = 2821) 1.2 UIU/ML [id number] 00:00:00 Test Item Value Reference Range Interpretation Comments TSH (test code = 2821) 1.2 UIU/ML [id number] 00:00:00 Test Item Value Reference Range Interpretation Comments TSH (test code = 2821) 1.2 UIU/ML CBC W/AUTO [id number] 00:00:00 Test Item Value Reference Range Interpretation [...] code = 1015) 243 K/UL CBC W/AUTO [id number] 00:00:00 Test Item Value Reference Range Interpretation [...] code = 1015) 243 K/UL CBC W/AUTO [id number] 00:00:00 Test Item Value Reference Range Interpretation [...] (test code = 1015) 243 K/UL HEMOGLOBIN [id number] 00:00:00 Test Item Value Reference Range Interpretation Comments HEMOGLOBIN A1c (test code = 21109) 6.4 % HEMOGLOBIN [id number] 00:00:00 Test Item Value Reference Range Interpretation Comments HEMOGLOBIN A1c (test code = 84316) 6.4 % HEMOGLOBIN [id number] 00:00:00 Test Item Value Reference Range Interpretation Comments HEMOGLOBIN A1c (test code = 14510) 6.4 % CBC W/AUTO [id number] 00:00:00 Test Item Value Reference Range Interpretation [...] code = 1015) 243 K/UL CBC W/AUTO [id number] 00:00:00 Test Item Value Reference Range Interpretation [...] code = 1015) 243 K/UL CBC W/AUTO [id number] 00:00:00 Test Item Value Reference Range Interpretation [...] (test code = 1015) 243 K/UL HEMOGLOBIN [id number] 00:00:00 Test Item Value Reference Range Interpretation Comments HEMOGLOBIN A1c (test code = 07576) 6.4 % HEMOGLOBIN [id number] 00:00:00 Test Item Value Reference Range Interpretation Comments HEMOGLOBIN A1c (test code = 36581) 6.4 % HEMOGLOBIN [id number] 00:00:00 Test Item Value Reference Range Interpretation Comments HEMOGLOBIN A1c (test code = 21669) 6.4 % CBC W/AUTO [id number] 00:00:00 Test Item Value Reference Range Interpretation [...] code = 1015) 243 K/UL CBC W/AUTO [id number] 00:00:00 Test Item Value Reference Range Interpretation [...] code = 1015) 243 K/UL CBC W/AUTO [id number] 00:00:00 Test Item Value Reference Range Interpretation [...] (test code = 1015) 243 K/UL HEMOGLOBIN [id number] 00:00:00 Test Item Value Reference Range Interpretation Comments HEMOGLOBIN A1c (test code = 69659) 6.4 % HEMOGLOBIN [id number] 00:00:00 Test Item Value Reference Range Interpretation Comments HEMOGLOBIN A1c (test code = 00072) 6.4 % HEMOGLOBIN [id number] 00:00:00 Test Item Value Reference Range Interpretation Comments HEMOGLOBIN A1c (test code = 94053) 6.4 % CBC W/AUTO [id number] 00:00:00 Test Item Value Reference Range Interpretation [...] code = 1015) 243 K/UL CBC W/AUTO [id number] 00:00:00 Test Item Value Reference Range Interpretation [...] code = 1015) 243 K/UL CBC W/AUTO [id number] 00:00:00 Test Item Value Reference Range Interpretation [...] (test code = 1015) 243 K/UL HEMOGLOBIN [id number] 00:00:00 Test Item Value Reference Range Interpretation Comments HEMOGLOBIN A1c (test code = 53221) 6.4 % HEMOGLOBIN [id number] 00:00:00 Test Item Value Reference Range Interpretation Comments HEMOGLOBIN A1c (test code = 15753) 6.4 % HEMOGLOBIN [id number] 00:00:00 Test Item Value Reference Range Interpretation Comments HEMOGLOBIN A1c (test code = 53716) 6.4 % CBC W/AUTO [id number] 00:00:00 Test Item Value Reference Range Interpretation [...] code = 1015) 243 K/UL CBC W/AUTO [id number] 00:00:00 Test Item Value Reference Range Interpretation [...] code = 1015) 243 K/UL CBC W/AUTO [id number] 00:00:00 Test Item Value Reference Range Interpretation [...] (test code = 1015) 243 K/UL HEMOGLOBIN [id number] 00:00:00 Test Item Value Reference Range Interpretation Comments HEMOGLOBIN A1c (test code = 45463) 6.4 % HEMOGLOBIN [id number] 00:00:00 Test Item Value Reference Range Interpretation Comments HEMOGLOBIN A1c (test code = 41337) 6.4 % HEMOGLOBIN [id number] 00:00:00 Test Item Value Reference Range Interpretation Comments HEMOGLOBIN A1c (test code = 48306) 6.4 % CBC W/AUTO [id number] 00:00:00 Test Item Value Reference Range Interpretation [...] code = 1015) 243 K/UL CBC W/AUTO [id number] 00:00:00 Test Item Value Reference Range Interpretation [...] code = 1015) 243 K/UL CBC W/AUTO [id number] 00:00:00 Test Item Value Reference Range Interpretation [...] (test code = 1015) 243 K/UL HEMOGLOBIN [id number] 00:00:00 Test Item Value Reference Range Interpretation Comments HEMOGLOBIN A1c (test code = 65796) 6.4 % HEMOGLOBIN [id number] 00:00:00 Test Item Value Reference Range Interpretation Comments HEMOGLOBIN A1c (test code = 85913) 6.4 % HEMOGLOBIN [id number] 00:00:00 Test Item Value Reference Range Interpretation Comments HEMOGLOBIN A1c (test code = 79948) 6.4 % CBC W/AUTO [id number] 00:00:00 Test Item Value Reference Range Interpretation [...] code = 1015) 243 K/UL CBC W/AUTO [id number] 00:00:00 Test Item Value Reference Range Interpretation [...] code = 1015) 243 K/UL CBC W/AUTO [id number] 00:00:00 Test Item Value Reference Range Interpretation [...] (test code = 1015) 243 K/UL HEMOGLOBIN [id number] 00:00:00 Test Item Value Reference Range Interpretation Comments HEMOGLOBIN A1c (test code = 66346) 6.4 % HEMOGLOBIN [id number] 00:00:00 Test Item Value Reference Range Interpretation Comments HEMOGLOBIN A1c (test code = 21296) 6.4 % HEMOGLOBIN [id number] 00:00:00 Test Item Value Reference Range Interpretation Comments HEMOGLOBIN A1c (test code = 18189) 6.4 % CBC W/AUTO [id number] 00:00:00 Test Item Value Reference Range Interpretation [...] code = 1015) 243 K/UL CBC W/AUTO [id number] 00:00:00 Test Item Value Reference Range Interpretation [...] (test code = 1015) 243 K/UL HEMOGLOBIN [id number] 00:00:00 Test Item Value Reference Range Interpretation Comments HEMOGLOBIN A1c (test code = 79718) 6.4 % HEMOGLOBIN [id number] 00:00:00 Test Item Value Reference Range Interpretation Comments HEMOGLOBIN A1c (test code = 96453) 6.4 % CBC W/AUTO [id number] 00:00:00 Test Item Value Reference Range Interpretation [...] code = 1015) 243 K/UL CBC W/AUTO [id number] 00:00:00 Test Item Value Reference Range Interpretation [...] code = 1015) 243 K/UL CBC W/AUTO [id number] 00:00:00 Test Item Value Reference Range Interpretation [...] (test code = 1015) 243 K/UL HEMOGLOBIN [id number] 00:00:00 Test Item Value Reference Range Interpretation Comments HEMOGLOBIN A1c (test code = 08811) 6.4 % HEMOGLOBIN [id number] 00:00:00 Test Item Value Reference Range Interpretation Comments HEMOGLOBIN A1c (test code = 88020) 6.4 % HEMOGLOBIN [id number] 00:00:00 Test Item Value Reference Range Interpretation Comments HEMOGLOBIN A1c (test code = 73649) 6.4 % CBC W/AUTO [id number] 00:00:00 Test Item Value Reference Range Interpretation [...] code = 1015) 243 K/UL CBC W/AUTO [id number] 00:00:00 Test Item Value Reference Range Interpretation [...] code = 1015) 243 K/UL CBC W/AUTO [id number] 00:00:00 Test Item Value Reference Range Interpretation [...] (test code = 1015) 243 K/UL HEMOGLOBIN [id number] 00:00:00 Test Item Value Reference Range Interpretation Comments HEMOGLOBIN A1c (test code = 93729) 6.4 % HEMOGLOBIN [id number] 00:00:00 Test Item Value Reference Range Interpretation Comments HEMOGLOBIN A1c (test code = 70859) 6.4 % HEMOGLOBIN [id number] 00:00:00 Test Item Value Reference Range Interpretation Comments HEMOGLOBIN A1c (test code = 37262) 6.4 % CBC W/AUTO [id number] 00:00:00 Test Item Value Reference Range Interpretation [...] code = 1015) 243 K/UL CBC W/AUTO [id number] 00:00:00 Test Item Value Reference Range Interpretation [...] code = 1015) 243 K/UL CBC W/AUTO [id number] 00:00:00 Test Item Value Reference Range Interpretation [...] (test code = 1015) 243 K/UL HEMOGLOBIN [id number] 00:00:00 Test Item Value Reference Range Interpretation Comments HEMOGLOBIN A1c (test code = 26415) 6.4 % HEMOGLOBIN [id number] 00:00:00 Test Item Value Reference Range Interpretation Comments HEMOGLOBIN A1c (test code = 76621) 6.4 % HEMOGLOBIN [id number] 00:00:00 Test Item Value Reference Range Interpretation Comments HEMOGLOBIN A1c (test code = 51153) 6.4 % CHLAMYDIA, AMPLIFIED, [id number] 00:00:00 Test Item Value Reference Range Interpretation Comments CHLAMYDIA, AMPLIFIED (test code = NEGATIVE 76788) CHLAMYDIA, AMPLIFIED, [id number] 00:00:00 Test Item Value Reference Range Interpretation Comments CHLAMYDIA, AMPLIFIED (test code = NEGATIVE 41515) GC, AMPLIFIED, [id number] 00:00:00 Test Item Value Reference Range Interpretation Comments GONORRHEA, AMPLIFIED (test code = NEGATIVE 19996) GC, AMPLIFIED, [id number] 00:00:00 Test Item Value Reference Range Interpretation Comments GONORRHEA, AMPLIFIED (test code = NEGATIVE 19283) HIV AB/AG COMBO RFLX [id number] 00:00:00 Test Item Value Reference Range Interpretation Comments HIV AB/AG COMBO RFLX CONF (test NON-REACTIVE code = 3514) HIV AB/AG COMBO RFLX [id number] 00:00:00 Test Item Value Reference Range Interpretation Comments HIV AB/AG COMBO RFLX CONF (test NON-REACTIVE code = 3514) [id number] 00:00:00 Test Item Value Reference Range Interpretation Comments RPR RESULT (test code = NON-REACTIVE 3501) RPR TITER (test code = 3500) NOT INDIC. TITER [id number] 00:00:00 Test Item Value Reference Range Interpretation Comments RPR RESULT (test code = NON-REACTIVE 3501) RPR TITER (test code = 3500) NOT INDIC. TITER [id number] 00:00:00 Test Item Value Reference Range Interpretation [...] INTERPRETATION HEPATITIS B: (NOTE) (test code = 21633) INTERPRETATION HEPATITIS C: (NOTE) (test code = 14315) HEPATITIS PROFILE (A,B,C)2015-06-24 00:00:00 Test Item Value [...] INTERPRETATION HEPATITIS B: (NOTE) (test code = 93608) INTERPRETATION HEPATITIS C: (NOTE) (test code = 21045) COMPREHENSIVE METABOLIC [id number] 00:00:00 Test Item Value Reference Range Interpretation Comments GLUCOSE (test code = 2217) 105 MG/DL BUN (test code = 2208) 11 MG/DL CREATININE (test code = 2214) 0.80 MG/DL eGFR AMER. (test code 109 ML/MIN/1.73 = 25253) eGFR NON- AMER. (test 94 ML/MIN/1.73 code = 92767) CALCULATED BUN/CREAT (test 14 RATIO code = [...] code = 2219) 14 U/L COMPREHENSIVE METABOLIC [id number] 00:00:00 Test Item Value Reference Range Interpretation Comments GLUCOSE (test code = 2217) 105 MG/DL BUN (test code = 2208) 11 MG/DL CREATININE (test code = 2214) 0.80 MG/DL eGFR AMER. (test code 109 ML/MIN/1.73 = 67301) eGFR NON- AMER. (test 94 ML/MIN/1.73 code = 31463) CALCULATED BUN/CREAT (test 14 RATIO code = [...] (test code = 2219) 14 U/L LIPID [id number] 00:00:00 Test Item Value Reference Range Interpretation Comments CHOLESTEROL (test code = 2210) 211 MG/DL TRIGLYCERIDES (test code = 2232) 209 MG/DL HDL CHOLESTEROL (test code = 2220) 38 MG/DL CALCULATED LDL CHOL (test code = 131 MG/DL 2237) RISK RATIO LDL/HDL (test code = 3.45 RATIO 2238) LIPID [id number] 00:00:00 Test Item Value Reference Range Interpretation Comments CHOLESTEROL (test code = 2210) 211 MG/DL TRIGLYCERIDES (test code = 2232) 209 MG/DL HDL CHOLESTEROL (test code = 2220) 38 MG/DL CALCULATED LDL CHOL (test code = 131 MG/DL 2237) RISK RATIO LDL/HDL (test code = 3.45 RATIO 2238) CBC W/AUTO [id number] 00:00:00 Test Item Value Reference Range Interpretation [...] code = 1015) 254 K/UL CBC W/AUTO [id number] 00:00:00 Test Item Value Reference Range Interpretation [...] code = 1015) 254 K/UL CBC W/AUTO [id number] 00:00:00 Test Item Value Reference Range Interpretation [...] (test code = 1015) 254 K/UL HEMOGLOBIN [id number] 00:00:00 Test Item Value Reference Range Interpretation Comments HEMOGLOBIN A1c (test code = 32510) 6.9 % HEMOGLOBIN [id number] 00:00:00 Test Item Value Reference Range Interpretation Comments HEMOGLOBIN A1c (test code = 64455) 6.9 % HEMOGLOBIN [id number] 00:00:00 Test Item Value Reference Range Interpretation Comments HEMOGLOBIN A1c (test code = 78224) 6.9 % [id number] 00:00:00 Test Item Value Reference Range Interpretation Comments TSH (test code = 2821) 0.5 UIU/ML [id number] 00:00:00 Test Item Value Reference Range Interpretation Comments TSH (test code = 2821) 0.5 UIU/ML [id number] 00:00:00 Test Item Value Reference Range Interpretation Comments TSH (test code = 2821) 0.5 UIU/ML HEPATITIS A IgM [REFLEX]2015-06-24 00:00:00 Test Item Value Reference Range Interpretation Comments HEPATITIS A IgM (test code = NON-REACTIVE 2767) CHLAMYDIA, AMPLIFIED, [id number] 00:00:00 Test Item Value Reference Range Interpretation Comments CHLAMYDIA, AMPLIFIED (test code = NEGATIVE 89876) CHLAMYDIA, AMPLIFIED, [id number] 00:00:00 Test Item Value Reference Range Interpretation Comments CHLAMYDIA, AMPLIFIED (test code = NEGATIVE 57872) GC, AMPLIFIED, [id number] 00:00:00 Test Item Value Reference Range Interpretation Comments GONORRHEA, AMPLIFIED (test code = NEGATIVE 52249) GC, AMPLIFIED, [id number] 00:00:00 Test Item Value Reference Range Interpretation Comments GONORRHEA, AMPLIFIED (test code = NEGATIVE 57626) HIV AB/AG COMBO RFLX [id number] 00:00:00 Test Item Value Reference Range Interpretation Comments HIV AB/AG COMBO RFLX CONF (test NON-REACTIVE code = 3514) HIV AB/AG COMBO RFLX [id number] 00:00:00 Test Item Value Reference Range Interpretation Comments HIV AB/AG COMBO RFLX CONF (test NON-REACTIVE code = 3514) [id number] 00:00:00 Test Item Value Reference Range Interpretation Comments RPR RESULT (test code = NON-REACTIVE 3501) RPR TITER (test code = 3500) NOT INDIC. TITER [id number] 00:00:00 Test Item Value Reference Range Interpretation Comments RPR RESULT (test code = NON-REACTIVE 3501) RPR TITER (test code = 3500) NOT INDIC. TITER [id number] 00:00:00 Test Item Value Reference Range Interpretation [...] INTERPRETATION HEPATITIS B: (NOTE) (test code = 19768) INTERPRETATION HEPATITIS C: (NOTE) (test code = 76667) HEPATITIS PROFILE (A,B,C)2015-06-24 00:00:00 Test Item Value [...] INTERPRETATION HEPATITIS B: (NOTE) (test code = 16414) INTERPRETATION HEPATITIS C: (NOTE) (test code = 57130) COMPREHENSIVE METABOLIC [id number] 00:00:00 Test Item Value Reference Range Interpretation Comments GLUCOSE (test code = 2217) 105 MG/DL BUN (test code = 2208) 11 MG/DL CREATININE (test code = 2214) 0.80 MG/DL eGFR AMER. (test code 109 ML/MIN/1.73 = 59900) eGFR NON- AMER. (test 94 ML/MIN/1.73 code = 08439) CALCULATED BUN/CREAT (test 14 RATIO code = [...] code = 2219) 14 U/L COMPREHENSIVE METABOLIC [id number] 00:00:00 Test Item Value Reference Range Interpretation Comments GLUCOSE (test code = 2217) 105 MG/DL BUN (test code = 2208) 11 MG/DL CREATININE (test code = 2214) 0.80 MG/DL eGFR AMER. (test code 109 ML/MIN/1.73 = 28835) eGFR NON- AMER. (test 94 ML/MIN/1.73 code = 73335) CALCULATED BUN/CREAT (test 14 RATIO code = [...] (test code = 2219) 14 U/L LIPID [id number] 00:00:00 Test Item Value Reference Range Interpretation Comments CHOLESTEROL (test code = 2210) 211 MG/DL TRIGLYCERIDES (test code = 2232) 209 MG/DL HDL CHOLESTEROL (test code = 2220) 38 MG/DL CALCULATED LDL CHOL (test code = 131 MG/DL 2237) RISK RATIO LDL/HDL (test code = 3.45 RATIO 2238) LIPID [id number] 00:00:00 Test Item Value Reference Range Interpretation Comments CHOLESTEROL (test code = 2210) 211 MG/DL TRIGLYCERIDES (test code = 2232) 209 MG/DL HDL CHOLESTEROL (test code = 2220) 38 MG/DL CALCULATED LDL CHOL (test code = 131 MG/DL 2237) RISK RATIO LDL/HDL (test code = 3.45 RATIO 2238) CBC W/AUTO [id number] 00:00:00 Test Item Value Reference Range Interpretation [...] code = 1015) 254 K/UL CBC W/AUTO [id number] 00:00:00 Test Item Value Reference Range Interpretation [...] code = 1015) 254 K/UL CBC W/AUTO [id number] 00:00:00 Test Item Value Reference Range Interpretation [...] (test code = 1015) 254 K/UL HEMOGLOBIN [id number] 00:00:00 Test Item Value Reference Range Interpretation Comments HEMOGLOBIN A1c (test code = 78190) 6.9 % HEMOGLOBIN [id number] 00:00:00 Test Item Value Reference Range Interpretation Comments HEMOGLOBIN A1c (test code = 97314) 6.9 % HEMOGLOBIN [id number] 00:00:00 Test Item Value Reference Range Interpretation Comments HEMOGLOBIN A1c (test code = 61406) 6.9 % [id number] 00:00:00 Test Item Value Reference Range Interpretation Comments TSH (test code = 2821) 0.5 UIU/ML [id number] 00:00:00 Test Item Value Reference Range Interpretation Comments TSH (test code = 2821) 0.5 UIU/ML [id number] 00:00:00 Test Item Value Reference Range Interpretation Comments TSH (test code = 2821) 0.5 UIU/ML HEPATITIS A IgM [REFLEX]2015-06-24 00:00:00 Test Item Value Reference Range Interpretation Comments HEPATITIS A IgM (test code = NON-REACTIVE 2728) CHLAMYDIA, AMPLIFIED, [id number] 00:00:00 Test Item Value Reference Range Interpretation Comments CHLAMYDIA, AMPLIFIED (test code = NEGATIVE 89145) CHLAMYDIA, AMPLIFIED, [id number] 00:00:00 Test Item Value Reference Range Interpretation Comments CHLAMYDIA, AMPLIFIED (test code = NEGATIVE 69748) GC, AMPLIFIED, [id number] 00:00:00 Test Item Value Reference Range Interpretation Comments GONORRHEA, AMPLIFIED (test code = NEGATIVE 92151) GC, AMPLIFIED, [id number] 00:00:00 Test Item Value Reference Range Interpretation Comments GONORRHEA, AMPLIFIED (test code = NEGATIVE 13631) HIV AB/AG COMBO RFLX [id number] 00:00:00 Test Item Value Reference Range Interpretation Comments HIV AB/AG COMBO RFLX CONF (test NON-REACTIVE code = 3514) HIV AB/AG COMBO RFLX [id number] 00:00:00 Test Item Value Reference Range Interpretation Comments HIV AB/AG COMBO RFLX CONF (test NON-REACTIVE code = 3514) [id number] 00:00:00 Test Item Value Reference Range Interpretation Comments RPR RESULT (test code = NON-REACTIVE 3501) RPR TITER (test code = 3500) NOT INDIC. TITER [id number] 00:00:00 Test Item Value Reference Range Interpretation Comments RPR RESULT (test code = NON-REACTIVE 3501) RPR TITER (test code = 3500) NOT INDIC. TITER [id number] 00:00:00 Test Item Value Reference Range Interpretation [...] INTERPRETATION HEPATITIS B: (NOTE) (test code = 87829) INTERPRETATION HEPATITIS C: (NOTE) (test code = 71639) HEPATITIS PROFILE (A,B,C)2015-06-24 00:00:00 Test Item Value [...] INTERPRETATION HEPATITIS B: (NOTE) (test code = 60379) INTERPRETATION HEPATITIS C: (NOTE) (test code = 02408) COMPREHENSIVE METABOLIC [id number] 00:00:00 Test Item Value Reference Range Interpretation Comments GLUCOSE (test code = 2217) 105 MG/DL BUN (test code = 2208) 11 MG/DL CREATININE (test code = 2214) 0.80 MG/DL eGFR AMER. (test code 109 ML/MIN/1.73 = 49704) eGFR NON- AMER. (test 94 ML/MIN/1.73 code = 42150) CALCULATED BUN/CREAT (test 14 RATIO code = [...] code = 2219) 14 U/L COMPREHENSIVE METABOLIC [id number] 00:00:00 Test Item Value Reference Range Interpretation Comments GLUCOSE (test code = 2217) 105 MG/DL BUN (test code = 2208) 11 MG/DL CREATININE (test code = 2214) 0.80 MG/DL eGFR AMER. (test code 109 ML/MIN/1.73 = 73999) eGFR NON- AMER. (test 94 ML/MIN/1.73 code = 64717) CALCULATED BUN/CREAT (test 14 RATIO code = [...] (test code = 2219) 14 U/L LIPID [id number] 00:00:00 Test Item Value Reference Range Interpretation Comments CHOLESTEROL (test code = 2210) 211 MG/DL TRIGLYCERIDES (test code = 2232) 209 MG/DL HDL CHOLESTEROL (test code = 2220) 38 MG/DL CALCULATED LDL CHOL (test code = 131 MG/DL 2237) RISK RATIO LDL/HDL (test code = 3.45 RATIO 2238) LIPID [id number] 00:00:00 Test Item Value Reference Range Interpretation Comments CHOLESTEROL (test code = 2210) 211 MG/DL TRIGLYCERIDES (test code = 2232) 209 MG/DL HDL CHOLESTEROL (test code = 2220) 38 MG/DL CALCULATED LDL CHOL (test code = 131 MG/DL 2237) RISK RATIO LDL/HDL (test code = 3.45 RATIO 2238) CBC W/AUTO [id number] 00:00:00 Test Item Value Reference Range Interpretation [...] code = 1015) 254 K/UL CBC W/AUTO [id number] 00:00:00 Test Item Value Reference Range Interpretation [...] code = 1015) 254 K/UL CBC W/AUTO [id number] 00:00:00 Test Item Value Reference Range Interpretation [...] (test code = 1015) 254 K/UL HEMOGLOBIN [id number] 00:00:00 Test Item Value Reference Range Interpretation Comments HEMOGLOBIN A1c (test code = 07784) 6.9 % HEMOGLOBIN [id number] 00:00:00 Test Item Value Reference Range Interpretation Comments HEMOGLOBIN A1c (test code = 86383) 6.9 % HEMOGLOBIN [id number] 00:00:00 Test Item Value Reference Range Interpretation Comments HEMOGLOBIN A1c (test code = 77982) 6.9 % [id number] 00:00:00 Test Item Value Reference Range Interpretation Comments TSH (test code = 2821) 0.5 UIU/ML [id number] 00:00:00 Test Item Value Reference Range Interpretation Comments TSH (test code = 2821) 0.5 UIU/ML [id number] 00:00:00 Test Item Value Reference Range Interpretation Comments TSH (test code = 2821) 0.5 UIU/ML HEPATITIS A IgM [REFLEX]2015-06-24 00:00:00 Test Item Value Reference Range Interpretation Comments HEPATITIS A IgM (test code = NON-REACTIVE 8328) CHLAMYDIA, AMPLIFIED, [id number] 00:00:00 Test Item Value Reference Range Interpretation Comments CHLAMYDIA, AMPLIFIED (test code = NEGATIVE 63295) CHLAMYDIA, AMPLIFIED, [id number] 00:00:00 Test Item Value Reference Range Interpretation Comments CHLAMYDIA, AMPLIFIED (test code = NEGATIVE 38089) GC, AMPLIFIED, [id number] 00:00:00 Test Item Value Reference Range Interpretation Comments GONORRHEA, AMPLIFIED (test code = NEGATIVE 71761) GC, AMPLIFIED, [id number] 00:00:00 Test Item Value Reference Range Interpretation Comments GONORRHEA, AMPLIFIED (test code = NEGATIVE 69177) HIV AB/AG COMBO RFLX [id number] 00:00:00 Test Item Value Reference Range Interpretation Comments HIV AB/AG COMBO RFLX CONF (test NON-REACTIVE code = 3514) HIV AB/AG COMBO RFLX [id number] 00:00:00 Test Item Value Reference Range Interpretation Comments HIV AB/AG COMBO RFLX CONF (test NON-REACTIVE code = 3514) [id number] 00:00:00 Test Item Value Reference Range Interpretation Comments RPR RESULT (test code = NON-REACTIVE 3501) RPR TITER (test code = 3500) NOT INDIC. TITER [id number] 00:00:00 Test Item Value Reference Range Interpretation Comments RPR RESULT (test code = NON-REACTIVE 3501) RPR TITER (test code = 3500) NOT INDIC. TITER [id number] 00:00:00 Test Item Value Reference Range Interpretation [...] INTERPRETATION HEPATITIS B: (NOTE) (test code = 19242) INTERPRETATION HEPATITIS C: (NOTE) (test code = 88698) HEPATITIS PROFILE (A,B,C)2015-06-24 00:00:00 Test Item Value [...] INTERPRETATION HEPATITIS B: (NOTE) (test code = 51181) INTERPRETATION HEPATITIS C: (NOTE) (test code = 41554) COMPREHENSIVE METABOLIC [id number] 00:00:00 Test Item Value Reference Range Interpretation Comments GLUCOSE (test code = 2217) 105 MG/DL BUN (test code = 2208) 11 MG/DL CREATININE (test code = 2214) 0.80 MG/DL eGFR AMER. (test code 109 ML/MIN/1.73 = 55055) eGFR NON- AMER. (test 94 ML/MIN/1.73 code = 31081) CALCULATED BUN/CREAT (test 14 RATIO code = [...] code = 2219) 14 U/L COMPREHENSIVE METABOLIC [id number] 00:00:00 Test Item Value Reference Range Interpretation Comments GLUCOSE (test code = 2217) 105 MG/DL BUN (test code = 2208) 11 MG/DL CREATININE (test code = 2214) 0.80 MG/DL eGFR AMER. (test code 109 ML/MIN/1.73 = 01581) eGFR NON- AMER. (test 94 ML/MIN/1.73 code = 25670) CALCULATED BUN/CREAT (test 14 RATIO code = [...] ALKALINE PHOSPHATASE (test 36 U/L code = 220) SGOT (AST) (test code = 2218) 14 U/L SGPT (ALT) (test code = 2219) 14 U/L LIPID [id number] 00:00:00 Test Item Value Reference Range Interpretation Comments CHOLESTEROL (test code = 2210) 211 MG/DL TRIGLYCERIDES (test code = 2232) 209 MG/DL HDL CHOLESTEROL (test code = 2220) 38 MG/DL CALCULATED LDL CHOL (test code = 131 MG/DL 2236) RISK RATIO LDL/HDL (test code = 3.45 RATIO 2238) LIPID [id number] 00:00:00 Test Item Value Reference Range Interpretation Comments CHOLESTEROL (test code = 2210) 211 MG/DL TRIGLYCERIDES (test code = 2232) 209 MG/DL HDL CHOLESTEROL (test code = 2220) 38 MG/DL CALCULATED LDL CHOL (test code = 131 MG/DL 7) RISK RATIO LDL/HDL (test code = 3.45 RATIO 2238) CBC W/AUTO [id number] 00:00:00 Test Item Value Reference Range Interpretation [...] code = 1015) 254 K/UL CBC W/AUTO [id number] 00:00:00 Test Item Value Reference Range Interpretation [...] code = 1015) 254 K/UL CBC W/AUTO [id number] 00:00:00 Test Item Value Reference Range Interpretation [...] (test code = 1015) 254 K/UL HEMOGLOBIN [id number] 00:00:00 Test Item Value Reference Range Interpretation Comments HEMOGLOBIN A1c (test code = 03804) 6.9 % HEMOGLOBIN [id number] 00:00:00 Test Item Value Reference Range Interpretation Comments HEMOGLOBIN A1c (test code = 45703) 6.9 % HEMOGLOBIN [id number] 00:00:00 Test Item Value Reference Range Interpretation Comments HEMOGLOBIN A1c (test code = 93539) 6.9 % [id number] 00:00:00 Test Item Value Reference Range Interpretation Comments TSH (test code = 2821) 0.5 UIU/ML [id number] 00:00:00 Test Item Value Reference Range Interpretation Comments TSH (test code = 2821) 0.5 UIU/ML [id number] 00:00:00 Test Item Value Reference Range Interpretation Comments TSH (test code = 2821) 0.5 UIU/ML HEPATITIS A IgM [REFLEX]2015-06-24 00:00:00 Test Item Value Reference Range Interpretation Comments HEPATITIS A IgM (test code = NON-REACTIVE 2728) CHLAMYDIA, AMPLIFIED, [id number] 00:00:00 Test Item Value Reference Range Interpretation Comments CHLAMYDIA, AMPLIFIED (test code = NEGATIVE 94990) CHLAMYDIA, AMPLIFIED, [id number] 00:00:00 Test Item Value Reference Range Interpretation Comments CHLAMYDIA, AMPLIFIED (test code = NEGATIVE 05556) GC, AMPLIFIED, [id number] 00:00:00 Test Item Value Reference Range Interpretation Comments GONORRHEA, AMPLIFIED (test code = NEGATIVE 85109) GC, AMPLIFIED, [id number] 00:00:00 Test Item Value Reference Range Interpretation Comments GONORRHEA, AMPLIFIED (test code = NEGATIVE 16275) HIV AB/AG COMBO RFLX [id number] 00:00:00 Test Item Value Reference Range Interpretation Comments HIV AB/AG COMBO RFLX CONF (test NON-REACTIVE code = 3514) HIV AB/AG COMBO RFLX [id number] 00:00:00 Test Item Value Reference Range Interpretation Comments HIV AB/AG COMBO RFLX CONF (test NON-REACTIVE code = 3514) [id number] 00:00:00 Test Item Value Reference Range Interpretation Comments RPR RESULT (test code = NON-REACTIVE 3501) RPR TITER (test code = 3500) NOT INDIC. TITER [id number] 00:00:00 Test Item Value Reference Range Interpretation Comments RPR RESULT (test code = NON-REACTIVE 3501) RPR TITER (test code = 3500) NOT INDIC. TITER [id number] 00:00:00 Test Item Value Reference Range Interpretation [...] INTERPRETATION HEPATITIS B: (NOTE) (test code = 16167) INTERPRETATION HEPATITIS C: (NOTE) (test code = 67086) HEPATITIS PROFILE (A,B,C)2015-06-24 00:00:00 Test Item Value [...] INTERPRETATION HEPATITIS B: (NOTE) (test code = 44469) INTERPRETATION HEPATITIS C: (NOTE) (test code = 04866) COMPREHENSIVE METABOLIC [id number] 00:00:00 Test Item Value Reference Range Interpretation Comments GLUCOSE (test code = 2217) 105 MG/DL BUN (test code = 2208) 11 MG/DL CREATININE (test code = 2214) 0.80 MG/DL eGFR AMER. (test code 109 ML/MIN/1.73 = 39378) eGFR NON- AMER. (test 94 ML/MIN/1.73 code = 66862) CALCULATED BUN/CREAT (test 14 RATIO code = [...] code = 2219) 14 U/L COMPREHENSIVE METABOLIC [id number] 00:00:00 Test Item Value Reference Range Interpretation Comments GLUCOSE (test code = 2217) 105 MG/DL BUN (test code = 2208) 11 MG/DL CREATININE (test code = 2214) 0.80 MG/DL eGFR AMER. (test code 109 ML/MIN/1.73 = 13864) eGFR NON- AMER. (test 94 ML/MIN/1.73 code = 26727) CALCULATED BUN/CREAT (test 14 RATIO code = [...] (test code = 2219) 14 U/L LIPID [id number] 00:00:00 Test Item Value Reference Range Interpretation Comments CHOLESTEROL (test code = 2210) 211 MG/DL TRIGLYCERIDES (test code = 2232) 209 MG/DL HDL CHOLESTEROL (test code = 2220) 38 MG/DL CALCULATED LDL CHOL (test code = 131 MG/DL 2236) RISK RATIO LDL/HDL (test code = 3.45 RATIO 2238) LIPID [id number] 00:00:00 Test Item Value Reference Range Interpretation Comments CHOLESTEROL (test code = 2210) 211 MG/DL TRIGLYCERIDES (test code = 2232) 209 MG/DL HDL CHOLESTEROL (test code = 2220) 38 MG/DL CALCULATED LDL CHOL (test code = 131 MG/DL 2237) RISK RATIO LDL/HDL (test code = 3.45 RATIO 2238) CBC W/AUTO [id number] 00:00:00 Test Item Value Reference Range Interpretation [...] code = 1015) 254 K/UL CBC W/AUTO [id number] 00:00:00 Test Item Value Reference Range Interpretation [...] code = 1015) 254 K/UL CBC W/AUTO [id number] 00:00:00 Test Item Value Reference Range Interpretation [...] (test code = 1015) 254 K/UL HEMOGLOBIN [id number] 00:00:00 Test Item Value Reference Range Interpretation Comments HEMOGLOBIN A1c (test code = 52415) 6.9 % HEMOGLOBIN [id number] 00:00:00 Test Item Value Reference Range Interpretation Comments HEMOGLOBIN A1c (test code = 34934) 6.9 % HEMOGLOBIN [id number] 00:00:00 Test Item Value Reference Range Interpretation Comments HEMOGLOBIN A1c (test code = 10153) 6.9 % [id number] 00:00:00 Test Item Value Reference Range Interpretation Comments TSH (test code = 2821) 0.5 UIU/ML [id number] 00:00:00 Test Item Value Reference Range Interpretation Comments TSH (test code = 2821) 0.5 UIU/ML [id number] 00:00:00 Test Item Value Reference Range Interpretation Comments TSH (test code = 2821) 0.5 UIU/ML HEPATITIS A IgM [REFLEX]2015-06-24 00:00:00 Test Item Value Reference Range Interpretation Comments HEPATITIS A IgM (test code = NON-REACTIVE 2728) CHLAMYDIA, AMPLIFIED, [id number] 00:00:00 Test Item Value Reference Range Interpretation Comments CHLAMYDIA, AMPLIFIED (test code = NEGATIVE 20417) CHLAMYDIA, AMPLIFIED, [id number] 00:00:00 Test Item Value Reference Range Interpretation Comments CHLAMYDIA, AMPLIFIED (test code = NEGATIVE 41252) GC, AMPLIFIED, [id number] 00:00:00 Test Item Value Reference Range Interpretation Comments GONORRHEA, AMPLIFIED (test code = NEGATIVE 36326) GC, AMPLIFIED, [id number] 00:00:00 Test Item Value Reference Range Interpretation Comments GONORRHEA, AMPLIFIED (test code = NEGATIVE 47356) HIV AB/AG COMBO RFLX [id number] 00:00:00 Test Item Value Reference Range Interpretation Comments HIV AB/AG COMBO RFLX CONF (test NON-REACTIVE code = 3514) HIV AB/AG COMBO RFLX [id number] 00:00:00 Test Item Value Reference Range Interpretation Comments HIV AB/AG COMBO RFLX CONF (test NON-REACTIVE code = 3514) [id number] 00:00:00 Test Item Value Reference Range Interpretation Comments RPR RESULT (test code = NON-REACTIVE 3501) RPR TITER (test code = 3500) NOT INDIC. TITER [id number] 00:00:00 Test Item Value Reference Range Interpretation Comments RPR RESULT (test code = NON-REACTIVE 3501) RPR TITER (test code = 3500) NOT INDIC. TITER [id number] 00:00:00 Test Item Value Reference Range Interpretation [...] INTERPRETATION HEPATITIS B: (NOTE) (test code = 71982) INTERPRETATION HEPATITIS C: (NOTE) (test code = 98704) HEPATITIS PROFILE (A,B,C)2015-06-24 00:00:00 Test Item Value [...] INTERPRETATION HEPATITIS B: (NOTE) (test code = 58926) INTERPRETATION HEPATITIS C: (NOTE) (test code = 17102) COMPREHENSIVE METABOLIC [id number] 00:00:00 Test Item Value Reference Range Interpretation Comments GLUCOSE (test code = 2217) 105 MG/DL BUN (test code = 2208) 11 MG/DL CREATININE (test code = 2214) 0.80 MG/DL eGFR AMER. (test code 109 ML/MIN/1.73 = 53573) eGFR NON- AMER. (test 94 ML/MIN/1.73 code = 03934) CALCULATED BUN/CREAT (test 14 RATIO code = [...] code = 2219) 14 U/L COMPREHENSIVE METABOLIC [id number] 00:00:00 Test Item Value Reference Range Interpretation Comments GLUCOSE (test code = 2217) 105 MG/DL BUN (test code = 2208) 11 MG/DL CREATININE (test code = 2214) 0.80 MG/DL eGFR AMER. (test code 109 ML/MIN/1.73 = 71731) eGFR NON- AMER. (test 94 ML/MIN/1.73 code = 34507) CALCULATED BUN/CREAT (test 14 RATIO code = [...] (test code = 2219) 14 U/L LIPID [id number] 00:00:00 Test Item Value Reference Range Interpretation Comments CHOLESTEROL (test code = 2210) 211 MG/DL TRIGLYCERIDES (test code = 2232) 209 MG/DL HDL CHOLESTEROL (test code = 2220) 38 MG/DL CALCULATED LDL CHOL (test code = 131 MG/DL 2237) RISK RATIO LDL/HDL (test code = 3.45 RATIO 2238) LIPID [id number] 00:00:00 Test Item Value Reference Range Interpretation Comments CHOLESTEROL (test code = 2210) 211 MG/DL TRIGLYCERIDES (test code = 2232) 209 MG/DL HDL CHOLESTEROL (test code = 2220) 38 MG/DL CALCULATED LDL CHOL (test code = 131 MG/DL 2237) RISK RATIO LDL/HDL (test code = 3.45 RATIO 2238) CBC W/AUTO [id number] 00:00:00 Test Item Value Reference Range Interpretation [...] code = 1015) 254 K/UL CBC W/AUTO [id number] 00:00:00 Test Item Value Reference Range Interpretation [...] code = 1015) 254 K/UL CBC W/AUTO [id number] 00:00:00 Test Item Value Reference Range Interpretation [...] (test code = 1015) 254 K/UL HEMOGLOBIN [id number] 00:00:00 Test Item Value Reference Range Interpretation Comments HEMOGLOBIN A1c (test code = 12960) 6.9 % HEMOGLOBIN [id number] 00:00:00 Test Item Value Reference Range Interpretation Comments HEMOGLOBIN A1c (test code = 82511) 6.9 % HEMOGLOBIN [id number] 00:00:00 Test Item Value Reference Range Interpretation Comments HEMOGLOBIN A1c (test code = 24009) 6.9 % [id number] 00:00:00 Test Item Value Reference Range Interpretation Comments TSH (test code = 2821) 0.5 UIU/ML [id number] 00:00:00 Test Item Value Reference Range Interpretation Comments TSH (test code = 2821) 0.5 UIU/ML [id number] 00:00:00 Test Item Value Reference Range Interpretation Comments TSH (test code = 2821) 0.5 UIU/ML HEPATITIS A IgM [REFLEX]2015-06-24 00:00:00 Test Item Value Reference Range Interpretation Comments HEPATITIS A IgM (test code = NON-REACTIVE 2728) CHLAMYDIA, AMPLIFIED, [id number] 00:00:00 Test Item Value Reference Range Interpretation Comments CHLAMYDIA, AMPLIFIED (test code = NEGATIVE 43802) CHLAMYDIA, AMPLIFIED, [id number] 00:00:00 Test Item Value Reference Range Interpretation Comments CHLAMYDIA, AMPLIFIED (test code = NEGATIVE 24716) GC, AMPLIFIED, [id number] 00:00:00 Test Item Value Reference Range Interpretation Comments GONORRHEA, AMPLIFIED (test code = NEGATIVE 44023) GC, AMPLIFIED, [id number] 00:00:00 Test Item Value Reference Range Interpretation Comments GONORRHEA, AMPLIFIED (test code = NEGATIVE 97148) HIV AB/AG COMBO RFLX [id number] 00:00:00 Test Item Value Reference Range Interpretation Comments HIV AB/AG COMBO RFLX CONF (test NON-REACTIVE code = 3514) HIV AB/AG COMBO RFLX [id number] 00:00:00 Test Item Value Reference Range Interpretation Comments HIV AB/AG COMBO RFLX CONF (test NON-REACTIVE code = 3514) [id number] 00:00:00 Test Item Value Reference Range Interpretation Comments RPR RESULT (test code = NON-REACTIVE 3501) RPR TITER (test code = 3500) NOT INDIC. TITER [id number] 00:00:00 Test Item Value Reference Range Interpretation Comments RPR RESULT (test code = NON-REACTIVE 3501) RPR TITER (test code = 3500) NOT INDIC. TITER [id number] 00:00:00 Test Item Value Reference Range Interpretation [...] INTERPRETATION HEPATITIS B: (NOTE) (test code = 18395) INTERPRETATION HEPATITIS C: (NOTE) (test code = 30930) HEPATITIS PROFILE (A,B,C)2015-06-24 00:00:00 Test Item Value [...] INTERPRETATION HEPATITIS B: (NOTE) (test code = 48587) INTERPRETATION HEPATITIS C: (NOTE) (test code = 39925) COMPREHENSIVE METABOLIC [id number] 00:00:00 Test Item Value Reference Range Interpretation Comments GLUCOSE (test code = 2217) 105 MG/DL BUN (test code = 2208) 11 MG/DL CREATININE (test code = 2214) 0.80 MG/DL eGFR AMER. (test code 109 ML/MIN/1.73 = 03634) eGFR NON- AMER. (test 94 ML/MIN/1.73 code = 51050) CALCULATED BUN/CREAT (test 14 RATIO code = [...] code = 2219) 14 U/L COMPREHENSIVE METABOLIC [id number] 00:00:00 Test Item Value Reference Range Interpretation Comments GLUCOSE (test code = 2217) 105 MG/DL BUN (test code = 2208) 11 MG/DL CREATININE (test code = 2214) 0.80 MG/DL eGFR AMER. (test code 109 ML/MIN/1.73 = 80832) eGFR NON- AMER. (test 94 ML/MIN/1.73 code = 09633) CALCULATED BUN/CREAT (test 14 RATIO code = [...] (test code = 2219) 14 U/L LIPID [id number] 00:00:00 Test Item Value Reference Range Interpretation Comments CHOLESTEROL (test code = 2210) 211 MG/DL TRIGLYCERIDES (test code = 2232) 209 MG/DL HDL CHOLESTEROL (test code = 2220) 38 MG/DL CALCULATED LDL CHOL (test code = 131 MG/DL 2236) RISK RATIO LDL/HDL (test code = 3.45 RATIO 2238) LIPID [id number] 00:00:00 Test Item Value Reference Range Interpretation Comments CHOLESTEROL (test code = 2210) 211 MG/DL TRIGLYCERIDES (test code = 2232) 209 MG/DL HDL CHOLESTEROL (test code = 2220) 38 MG/DL CALCULATED LDL CHOL (test code = 131 MG/DL 2236) RISK RATIO LDL/HDL (test code = 3.45 RATIO 2238) CBC W/AUTO [id number] 00:00:00 Test Item Value Reference Range Interpretation [...] code = 1015) 254 K/UL CBC W/AUTO [id number] 00:00:00 Test Item Value Reference Range Interpretation [...] code = 1015) 254 K/UL CBC W/AUTO [id number] 00:00:00 Test Item Value Reference Range Interpretation [...] (test code = 1015) 254 K/UL HEMOGLOBIN [id number] 00:00:00 Test Item Value Reference Range Interpretation Comments HEMOGLOBIN A1c (test code = 77220) 6.9 % HEMOGLOBIN [id number] 00:00:00 Test Item Value Reference Range Interpretation Comments HEMOGLOBIN A1c (test code = 25545) 6.9 % HEMOGLOBIN [id number] 00:00:00 Test Item Value Reference Range Interpretation Comments HEMOGLOBIN A1c (test code = 54670) 6.9 % [id number] 00:00:00 Test Item Value Reference Range Interpretation Comments TSH (test code = 2821) 0.5 UIU/ML [id number] 00:00:00 Test Item Value Reference Range Interpretation Comments TSH (test code = 2821) 0.5 UIU/ML [id number] 00:00:00 Test Item Value Reference Range Interpretation Comments TSH (test code = 2821) 0.5 UIU/ML HEPATITIS A IgM [REFLEX]2015-06-24 00:00:00 Test Item Value Reference Range Interpretation Comments HEPATITIS A IgM (test code = NON-REACTIVE 0538) CHLAMYDIA, AMPLIFIED, [id number] 00:00:00 Test Item Value Reference Range Interpretation Comments CHLAMYDIA, AMPLIFIED (test code = NEGATIVE 49960) GC, AMPLIFIED, [id number] 00:00:00 Test Item Value Reference Range Interpretation Comments GONORRHEA, AMPLIFIED (test code = NEGATIVE 11098) HIV AB/AG COMBO RFLX [id number] 00:00:00 Test Item Value Reference Range Interpretation Comments HIV AB/AG COMBO RFLX CONF (test NON-REACTIVE code = 3514) [id number] 00:00:00 Test Item Value Reference Range Interpretation Comments RPR RESULT (test code = NON-REACTIVE 3501) RPR TITER (test code = 3500) NOT INDIC. TITER CHLAMYDIA, AMPLIFIED, [id number] 00:00:00 Test Item Value Reference Range Interpretation Comments CHLAMYDIA, AMPLIFIED (test code = NEGATIVE 59561) [id number] 00:00:00 Test Item Value Reference Range Interpretation Comments RPR RESULT (test code = NON-REACTIVE 3501) RPR TITER (test code = 3500) NOT INDIC. TITER CHLAMYDIA, AMPLIFIED, [id number] 00:00:00 Test Item Value Reference Range Interpretation Comments CHLAMYDIA, AMPLIFIED (test code = NEGATIVE 17819) GC, AMPLIFIED, [id number] 00:00:00 Test Item Value Reference Range Interpretation Comments GONORRHEA, AMPLIFIED (test code = NEGATIVE 21987) GC, AMPLIFIED, [id number] 00:00:00 Test Item Value Reference Range Interpretation Comments GONORRHEA, AMPLIFIED (test code = NEGATIVE 05159) HIV AB/AG COMBO RFLX [id number] 00:00:00 Test Item Value Reference Range Interpretation Comments HIV AB/AG COMBO RFLX CONF (test NON-REACTIVE code = 3514) HIV AB/AG COMBO RFLX [id number] 00:00:00 Test Item Value Reference Range Interpretation Comments HIV AB/AG COMBO RFLX CONF (test NON-REACTIVE code = 3514) [id number] 00:00:00 Test Item Value Reference Range Interpretation Comments RPR RESULT (test code = NON-REACTIVE 3501) RPR TITER (test code = 3500) NOT INDIC. TITER [id number] 00:00:00 Test Item Value Reference Range Interpretation Comments RPR RESULT (test code = NON-REACTIVE 3501) RPR TITER (test code = 3500) NOT INDIC. TITER [id number] 00:00:00 Test Item Value Reference Range Interpretation [...] INTERPRETATION HEPATITIS B: (NOTE) (test code = 06357) INTERPRETATION HEPATITIS C: (NOTE) (test code = 16205) HEPATITIS PROFILE (A,B,C)2015-06-24 00:00:00 Test Item Value [...] INTERPRETATION HEPATITIS B: (NOTE) (test code = 01025) INTERPRETATION HEPATITIS C: (NOTE) (test code = 85905) HEPATITIS PROFILE (A,B,C)2015-06-24 00:00:00 Test Item Value [...] INTERPRETATION HEPATITIS B: (NOTE) (test code = 66521) INTERPRETATION HEPATITIS C: (NOTE) (test code = 41144) COMPREHENSIVE METABOLIC [id number] 00:00:00 Test Item Value Reference Range Interpretation Comments GLUCOSE (test code = 2217) 105 MG/DL BUN (test code = 2208) 11 MG/DL CREATININE (test code = 2214) 0.80 MG/DL eGFR AMER. (test code 109 ML/MIN/1.73 = 50270) eGFR NON- AMER. (test 94 ML/MIN/1.73 code = 25935) CALCULATED BUN/CREAT (test 14 RATIO code = [...] code = 2219) 14 U/L COMPREHENSIVE METABOLIC [id number] 00:00:00 Test Item Value Reference Range Interpretation Comments GLUCOSE (test code = 2217) 105 MG/DL BUN (test code = 2208) 11 MG/DL CREATININE (test code = 2214) 0.80 MG/DL eGFR AMER. (test code 109 ML/MIN/1.73 = 57279) eGFR NON- AMER. (test 94 ML/MIN/1.73 code = 81646) CALCULATED BUN/CREAT (test 14 RATIO code = [...] (test code = 2219) 14 U/L LIPID [id number] 00:00:00 Test Item Value Reference Range Interpretation Comments CHOLESTEROL (test code = 2210) 211 MG/DL TRIGLYCERIDES (test code = 2232) 209 MG/DL HDL CHOLESTEROL (test code = 2220) 38 MG/DL CALCULATED LDL CHOL (test code = 131 MG/DL 2237) RISK RATIO LDL/HDL (test code = 3.45 RATIO 2238) LIPID [id number] 00:00:00 Test Item Value Reference Range Interpretation Comments CHOLESTEROL (test code = 2210) 211 MG/DL TRIGLYCERIDES (test code = 2232) 209 MG/DL HDL CHOLESTEROL (test code = 2220) 38 MG/DL CALCULATED LDL CHOL (test code = 131 MG/DL 2237) RISK RATIO LDL/HDL (test code = 3.45 RATIO 2238) CBC W/AUTO [id number] 00:00:00 Test Item Value Reference Range Interpretation [...] code = 1015) 254 K/UL CBC W/AUTO [id number] 00:00:00 Test Item Value Reference Range Interpretation [...] code = 1015) 254 K/UL CBC W/AUTO [id number] 00:00:00 Test Item Value Reference Range Interpretation [...] (test code = 1015) 254 K/UL HEMOGLOBIN [id number] 00:00:00 Test Item Value Reference Range Interpretation Comments HEMOGLOBIN A1c (test code = 15084) 6.9 % HEMOGLOBIN [id number] 00:00:00 Test Item Value Reference Range Interpretation Comments HEMOGLOBIN A1c (test code = 65115) 6.9 % HEMOGLOBIN [id number] 00:00:00 Test Item Value Reference Range Interpretation Comments HEMOGLOBIN A1c (test code = 77177) 6.9 % [id number] 00:00:00 Test Item Value Reference Range Interpretation Comments TSH (test code = 2821) 0.5 UIU/ML [id number] 00:00:00 Test Item Value Reference Range Interpretation Comments TSH (test code = 2821) 0.5 UIU/ML [id number] 00:00:00 Test Item Value Reference Range Interpretation Comments TSH (test code = 2821) 0.5 UIU/ML HEPATITIS A IgM [REFLEX]2015-06-24 00:00:00 Test Item Value Reference Range Interpretation Comments HEPATITIS A IgM (test code = NON-REACTIVE 1261) COMPREHENSIVE METABOLIC [id number] 00:00:00 Test Item Value Reference Range Interpretation Comments GLUCOSE (test code = 2217) 105 MG/DL BUN (test code = 2208) 11 MG/DL CREATININE (test code = 2214) 0.80 MG/DL eGFR AMER. (test code 109 ML/MIN/1.73 = 50922) eGFR NON- AMER. (test 94 ML/MIN/1.73 code = 58137) CALCULATED BUN/CREAT (test 14 RATIO code = [...] (test code = 2219) 14 U/L LIPID [id number] 00:00:00 Test Item Value Reference Range Interpretation Comments CHOLESTEROL (test code = 2210) 211 MG/DL TRIGLYCERIDES (test code = 2232) 209 MG/DL HDL CHOLESTEROL (test code = 2220) 38 MG/DL CALCULATED LDL CHOL (test code = 131 MG/DL 2236) RISK RATIO LDL/HDL (test code = 3.45 RATIO 2238) CBC W/AUTO [id number] 00:00:00 Test Item Value Reference Range Interpretation [...] code = 1015) 254 K/UL CBC W/AUTO [id number] 00:00:00 Test Item Value Reference Range Interpretation [...] (test code = 1015) 254 K/UL HEMOGLOBIN [id number] 00:00:00 Test Item Value Reference Range Interpretation Comments HEMOGLOBIN A1c (test code = 01379) 6.9 % HEMOGLOBIN [id number] 00:00:00 Test Item Value Reference Range Interpretation Comments HEMOGLOBIN A1c (test code = 59498) 6.9 % [id number] 00:00:00 Test Item Value Reference Range Interpretation Comments TSH (test code = 2821) 0.5 UIU/ML [id number] 00:00:00 Test Item Value Reference Range Interpretation Comments TSH (test code = 2821) 0.5 UIU/ML HEPATITIS A IgM [REFLEX]2015-06-24 00:00:00 Test Item Value Reference Range Interpretation Comments HEPATITIS A IgM (test code = NON-REACTIVE 2728) CHLAMYDIA, AMPLIFIED, [id number] 00:00:00 Test Item Value Reference Range Interpretation Comments CHLAMYDIA, AMPLIFIED (test code = NEGATIVE 49694) CHLAMYDIA, AMPLIFIED, [id number] 00:00:00 Test Item Value Reference Range Interpretation Comments CHLAMYDIA, AMPLIFIED (test code = NEGATIVE 25179) GC, AMPLIFIED, [id number] 00:00:00 Test Item Value Reference Range Interpretation Comments GONORRHEA, AMPLIFIED (test code = NEGATIVE 75732) GC, AMPLIFIED, [id number] 00:00:00 Test Item Value Reference Range Interpretation Comments GONORRHEA, AMPLIFIED (test code = NEGATIVE 77289) HIV AB/AG COMBO RFLX [id number] 00:00:00 Test Item Value Reference Range Interpretation Comments HIV AB/AG COMBO RFLX CONF (test NON-REACTIVE code = 3514) HIV AB/AG COMBO RFLX [id number] 00:00:00 Test Item Value Reference Range Interpretation Comments HIV AB/AG COMBO RFLX CONF (test NON-REACTIVE code = 3514) [id number] 00:00:00 Test Item Value Reference Range Interpretation Comments RPR RESULT (test code = NON-REACTIVE 3501) RPR TITER (test code = 3500) NOT INDIC. TITER [id number] 00:00:00 Test Item Value Reference Range Interpretation Comments RPR RESULT (test code = NON-REACTIVE 3501) RPR TITER (test code = 3500) NOT INDIC. TITER [id number] 00:00:00 Test Item Value Reference Range Interpretation [...] INTERPRETATION HEPATITIS B: (NOTE) (test code = 55687) INTERPRETATION HEPATITIS C: (NOTE) (test code = 52752) HEPATITIS PROFILE (A,B,C)2015-06-24 00:00:00 Test Item Value [...] INTERPRETATION HEPATITIS B: (NOTE) (test code = 52426) INTERPRETATION HEPATITIS C: (NOTE) (test code = 13361) COMPREHENSIVE METABOLIC [id number] 00:00:00 Test Item Value Reference Range Interpretation Comments GLUCOSE (test code = 2217) 105 MG/DL BUN (test code = 2208) 11 MG/DL CREATININE (test code = 2214) 0.80 MG/DL eGFR AMER. (test code 109 ML/MIN/1.73 = 17651) eGFR NON- AMER. (test 94 ML/MIN/1.73 code = 60152) CALCULATED BUN/CREAT (test 14 RATIO code = [...] code = 2219) 14 U/L COMPREHENSIVE METABOLIC [id number] 00:00:00 Test Item Value Reference Range Interpretation Comments GLUCOSE (test code = 2217) 105 MG/DL BUN (test code = 2208) 11 MG/DL CREATININE (test code = 2214) 0.80 MG/DL eGFR AMER. (test code 109 ML/MIN/1.73 = 64068) eGFR NON- AMER. (test 94 ML/MIN/1.73 code = 79258) CALCULATED BUN/CREAT (test 14 RATIO code = [...] (test code = 2219) 14 U/L LIPID [id number] 00:00:00 Test Item Value Reference Range Interpretation Comments CHOLESTEROL (test code = 2210) 211 MG/DL TRIGLYCERIDES (test code = 2232) 209 MG/DL HDL CHOLESTEROL (test code = 2220) 38 MG/DL CALCULATED LDL CHOL (test code = 131 MG/DL 2237) RISK RATIO LDL/HDL (test code = 3.45 RATIO 2238) LIPID [id number] 00:00:00 Test Item Value Reference Range Interpretation Comments CHOLESTEROL (test code = 2210) 211 MG/DL TRIGLYCERIDES (test code = 2232) 209 MG/DL HDL CHOLESTEROL (test code = 2220) 38 MG/DL CALCULATED LDL CHOL (test code = 131 MG/DL 2237) RISK RATIO LDL/HDL (test code = 3.45 RATIO 2238) CBC W/AUTO [id number] 00:00:00 Test Item Value Reference Range Interpretation [...] code = 1015) 254 K/UL CBC W/AUTO [id number] 00:00:00 Test Item Value Reference Range Interpretation [...] code = 1015) 254 K/UL CBC W/AUTO [id number] 00:00:00 Test Item Value Reference Range Interpretation [...] (test code = 1015) 254 K/UL HEMOGLOBIN [id number] 00:00:00 Test Item Value Reference Range Interpretation Comments HEMOGLOBIN A1c (test code = 63398) 6.9 % HEMOGLOBIN [id number] 00:00:00 Test Item Value Reference Range Interpretation Comments HEMOGLOBIN A1c (test code = 04819) 6.9 % HEMOGLOBIN [id number] 00:00:00 Test Item Value Reference Range Interpretation Comments HEMOGLOBIN A1c (test code = 43550) 6.9 % [id number] 00:00:00 Test Item Value Reference Range Interpretation Comments TSH (test code = 2821) 0.5 UIU/ML [id number] 00:00:00 Test Item Value Reference Range Interpretation Comments TSH (test code = 2821) 0.5 UIU/ML [id number] 00:00:00 Test Item Value Reference Range Interpretation Comments TSH (test code = 2821) 0.5 UIU/ML HEPATITIS A IgM [REFLEX]2015-06-24 00:00:00 Test Item Value Reference Range Interpretation Comments HEPATITIS A IgM (test code = NON-REACTIVE 2728) CHLAMYDIA, AMPLIFIED, [id number] 00:00:00 Test Item Value Reference Range Interpretation Comments CHLAMYDIA, AMPLIFIED (test code = NEGATIVE 91605) CHLAMYDIA, AMPLIFIED, [id number] 00:00:00 Test Item Value Reference Range Interpretation Comments CHLAMYDIA, AMPLIFIED (test code = NEGATIVE 31910) GC, AMPLIFIED, [id number] 00:00:00 Test Item Value Reference Range Interpretation Comments GONORRHEA, AMPLIFIED (test code = NEGATIVE 56756) GC, AMPLIFIED, [id number] 00:00:00 Test Item Value Reference Range Interpretation Comments GONORRHEA, AMPLIFIED (test code = NEGATIVE 98407) HIV AB/AG COMBO RFLX [id number] 00:00:00 Test Item Value Reference Range Interpretation Comments HIV AB/AG COMBO RFLX CONF (test NON-REACTIVE code = 3514) HIV AB/AG COMBO RFLX [id number] 00:00:00 Test Item Value Reference Range Interpretation Comments HIV AB/AG COMBO RFLX CONF (test NON-REACTIVE code = 3514) [id number] 00:00:00 Test Item Value Reference Range Interpretation Comments RPR RESULT (test code = NON-REACTIVE 3501) RPR TITER (test code = 3500) NOT INDIC. TITER [id number] 00:00:00 Test Item Value Reference Range Interpretation Comments RPR RESULT (test code = NON-REACTIVE 3501) RPR TITER (test code = 3500) NOT INDIC. TITER [id number] 00:00:00 Test Item Value Reference Range Interpretation [...] INTERPRETATION HEPATITIS B: (NOTE) (test code = 37712) INTERPRETATION HEPATITIS C: (NOTE) (test code = 03984) HEPATITIS PROFILE (A,B,C)2015-06-24 00:00:00 Test Item Value [...] INTERPRETATION HEPATITIS B: (NOTE) (test code = 08200) INTERPRETATION HEPATITIS C: (NOTE) (test code = 10656) COMPREHENSIVE METABOLIC [id number] 00:00:00 Test Item Value Reference Range Interpretation Comments GLUCOSE (test code = 2217) 105 MG/DL BUN (test code = 2208) 11 MG/DL CREATININE (test code = 2214) 0.80 MG/DL eGFR AMER. (test code 109 ML/MIN/1.73 = 37134) eGFR NON- AMER. (test 94 ML/MIN/1.73 code = 82196) CALCULATED BUN/CREAT (test 14 RATIO code = [...] code = 2219) 14 U/L COMPREHENSIVE METABOLIC [id number] 00:00:00 Test Item Value Reference Range Interpretation Comments GLUCOSE (test code = 2217) 105 MG/DL BUN (test code = 2208) 11 MG/DL CREATININE (test code = 2214) 0.80 MG/DL eGFR AMER. (test code 109 ML/MIN/1.73 = 06931) eGFR NON- AMER. (test 94 ML/MIN/1.73 code = 30668) CALCULATED BUN/CREAT (test 14 RATIO code = [...] (test code = 2219) 14 U/L LIPID [id number] 00:00:00 Test Item Value Reference Range Interpretation Comments CHOLESTEROL (test code = 2210) 211 MG/DL TRIGLYCERIDES (test code = 2232) 209 MG/DL HDL CHOLESTEROL (test code = 2220) 38 MG/DL CALCULATED LDL CHOL (test code = 131 MG/DL 2236) RISK RATIO LDL/HDL (test code = 3.45 RATIO 2238) LIPID [id number] 00:00:00 Test Item Value Reference Range Interpretation Comments CHOLESTEROL (test code = 2210) 211 MG/DL TRIGLYCERIDES (test code = 2232) 209 MG/DL HDL CHOLESTEROL (test code = 2220) 38 MG/DL CALCULATED LDL CHOL (test code = 131 MG/DL 2236) RISK RATIO LDL/HDL (test code = 3.45 RATIO 2238) CBC W/AUTO [id number] 00:00:00 Test Item Value Reference Range Interpretation [...] code = 1015) 254 K/UL CBC W/AUTO [id number] 00:00:00 Test Item Value Reference Range Interpretation [...] code = 1015) 254 K/UL CBC W/AUTO [id number] 00:00:00 Test Item Value Reference Range Interpretation [...] (test code = 1015) 254 K/UL HEMOGLOBIN [id number] 00:00:00 Test Item Value Reference Range Interpretation Comments HEMOGLOBIN A1c (test code = 49961) 6.9 % HEMOGLOBIN [id number] 00:00:00 Test Item Value Reference Range Interpretation Comments HEMOGLOBIN A1c (test code = 66696) 6.9 % HEMOGLOBIN [id number] 00:00:00 Test Item Value Reference Range Interpretation Comments HEMOGLOBIN A1c (test code = 83407) 6.9 % [id number] 00:00:00 Test Item Value Reference Range Interpretation Comments TSH (test code = 2821) 0.5 UIU/ML [id number] 00:00:00 Test Item Value Reference Range Interpretation Comments TSH (test code = 2821) 0.5 UIU/ML [id number] 00:00:00 Test Item Value Reference Range Interpretation Comments TSH (test code = 2821) 0.5 UIU/ML HEPATITIS A IgM [REFLEX]2015-06-24 00:00:00 Test Item Value Reference Range Interpretation Comments HEPATITIS A IgM (test code = NON-REACTIVE 8) COMPREHENSIVE METABOLIC [id number] 00:00:00 Test Item Value Reference Range Interpretation Comments GLUCOSE (test code = 2217) 113 MG/DL BUN (test code = 2208) 22 MG/DL CREATININE (test code = 2214) 0.9 MG/DL eGFR AMER. (test code 85 ML/MIN/1.73 = 51978) eGFR NON- AMER. (test 70 ML/MIN/1.73 code = 95205) CALCULATED BUN/CREAT (test 24 RATIO code = [...] code = 2219) 24 U/L COMPREHENSIVE METABOLIC [id number] 00:00:00 Test Item Value Reference Range Interpretation Comments GLUCOSE (test code = 2217) 113 MG/DL BUN (test code = 2208) 22 MG/DL CREATININE (test code = 2214) 0.9 MG/DL eGFR AMER. (test code 85 ML/MIN/1.73 = 52411) eGFR NON- AMER. (test 70 ML/MIN/1.73 code = 85470) CALCULATED BUN/CREAT (test 24 RATIO code = [...] code = 2219) 24 U/L CBC W/AUTO [id number] 00:00:00 Test Item Value Reference Range Interpretation [...] code = 1015) 270 K/UL CBC W/AUTO [id number] 00:00:00 Test Item Value Reference Range Interpretation [...] code = 1015) 270 K/UL CBC W/AUTO [id number] 00:00:00 Test Item Value Reference Range Interpretation [...] (test code = 1015) 270 K/UL HEMOGLOBIN [id number] 00:00:00 Test Item Value Reference Range Interpretation Comments HEMOGLOBIN A1c (test code = 27280) 7.3 % HEMOGLOBIN [id number] 00:00:00 Test Item Value Reference Range Interpretation Comments HEMOGLOBIN A1c (test code = 97731) 7.3 % HEMOGLOBIN [id number] 00:00:00 Test Item Value Reference Range Interpretation Comments HEMOGLOBIN A1c (test code = 44877) 7.3 % COMPREHENSIVE METABOLIC [id number] 00:00:00 Test Item Value Reference Range Interpretation Comments GLUCOSE (test code = 2217) 113 MG/DL BUN (test code = 2208) 22 MG/DL CREATININE (test code = 2214) 0.9 MG/DL eGFR AMER. (test code 85 ML/MIN/1.73 = 46235) eGFR NON- AMER. (test 70 ML/MIN/1.73 code = 45682) CALCULATED BUN/CREAT (test 24 RATIO code = [...] code = 2219) 24 U/L COMPREHENSIVE METABOLIC [id number] 00:00:00 Test Item Value Reference Range Interpretation Comments GLUCOSE (test code = 2217) 113 MG/DL BUN (test code = 2208) 22 MG/DL CREATININE (test code = 2214) 0.9 MG/DL eGFR AMER. (test code 85 ML/MIN/1.73 = 23057) eGFR NON- AMER. (test 70 ML/MIN/1.73 code = 43938) CALCULATED BUN/CREAT (test 24 RATIO code = [...] code = 2219) 24 U/L CBC W/AUTO [id number] 00:00:00 Test Item Value Reference Range Interpretation [...] code = 1015) 270 K/UL CBC W/AUTO [id number] 00:00:00 Test Item Value Reference Range Interpretation [...] code = 1015) 270 K/UL CBC W/AUTO [id number] 00:00:00 Test Item Value Reference Range Interpretation [...] (test code = 1015) 270 K/UL HEMOGLOBIN [id number] 00:00:00 Test Item Value Reference Range Interpretation Comments HEMOGLOBIN A1c (test code = 09974) 7.3 % HEMOGLOBIN [id number] 00:00:00 Test Item Value Reference Range Interpretation Comments HEMOGLOBIN A1c (test code = 78028) 7.3 % HEMOGLOBIN [id number] 00:00:00 Test Item Value Reference Range Interpretation Comments HEMOGLOBIN A1c (test code = 31571) 7.3 % COMPREHENSIVE METABOLIC [id number] 00:00:00 Test Item Value Reference Range Interpretation Comments GLUCOSE (test code = 2217) 113 MG/DL BUN (test code = 2208) 22 MG/DL CREATININE (test code = 2214) 0.9 MG/DL eGFR AMER. (test code 85 ML/MIN/1.73 = 93647) eGFR NON- AMER. (test 70 ML/MIN/1.73 code = 40641) CALCULATED BUN/CREAT (test 24 RATIO code = [...] code = 2219) 24 U/L COMPREHENSIVE METABOLIC [id number] 00:00:00 Test Item Value Reference Range Interpretation Comments GLUCOSE (test code = 2217) 113 MG/DL BUN (test code = 2208) 22 MG/DL CREATININE (test code = 2214) 0.9 MG/DL eGFR AMER. (test code 85 ML/MIN/1.73 = 18172) eGFR NON- AMER. (test 70 ML/MIN/1.73 code = 17939) CALCULATED BUN/CREAT (test 24 RATIO code = [...] code = 2219) 24 U/L CBC W/AUTO [id number] 00:00:00 Test Item Value Reference Range Interpretation [...] code = 1015) 270 K/UL CBC W/AUTO [id number] 00:00:00 Test Item Value Reference Range Interpretation [...] code = 1015) 270 K/UL CBC W/AUTO [id number] 00:00:00 Test Item Value Reference Range Interpretation [...] (test code = 1015) 270 K/UL HEMOGLOBIN [id number] 00:00:00 Test Item Value Reference Range Interpretation Comments HEMOGLOBIN A1c (test code = 67358) 7.3 % HEMOGLOBIN [id number] 00:00:00 Test Item Value Reference Range Interpretation Comments HEMOGLOBIN A1c (test code = 45466) 7.3 % HEMOGLOBIN [id number] 00:00:00 Test Item Value Reference Range Interpretation Comments HEMOGLOBIN A1c (test code = 15057) 7.3 % COMPREHENSIVE METABOLIC [id number] 00:00:00 Test Item Value Reference Range Interpretation Comments GLUCOSE (test code = 2217) 113 MG/DL BUN (test code = 2208) 22 MG/DL CREATININE (test code = 2214) 0.9 MG/DL eGFR AMER. (test code 85 ML/MIN/1.73 = 48768) eGFR NON- AMER. (test 70 ML/MIN/1.73 code = 66902) CALCULATED BUN/CREAT (test 24 RATIO code = [...] code = 2219) 24 U/L COMPREHENSIVE METABOLIC [id number] 00:00:00 Test Item Value Reference Range Interpretation Comments GLUCOSE (test code = 2217) 113 MG/DL BUN (test code = 2208) 22 MG/DL CREATININE (test code = 2214) 0.9 MG/DL eGFR AMER. (test code 85 ML/MIN/1.73 = 20098) eGFR NON- AMER. (test 70 ML/MIN/1.73 code = 56098) CALCULATED BUN/CREAT (test 24 RATIO code = [...] code = 2219) 24 U/L CBC W/AUTO [id number] 00:00:00 Test Item Value Reference Range Interpretation [...] code = 1015) 270 K/UL CBC W/AUTO [id number] 00:00:00 Test Item Value Reference Range Interpretation [...] code = 1015) 270 K/UL CBC W/AUTO [id number] 00:00:00 Test Item Value Reference Range Interpretation [...] (test code = 1015) 270 K/UL HEMOGLOBIN [id number] 00:00:00 Test Item Value Reference Range Interpretation Comments HEMOGLOBIN A1c (test code = 52031) 7.3 % HEMOGLOBIN [id number] 00:00:00 Test Item Value Reference Range Interpretation Comments HEMOGLOBIN A1c (test code = 02858) 7.3 % HEMOGLOBIN [id number] 00:00:00 Test Item Value Reference Range Interpretation Comments HEMOGLOBIN A1c (test code = 18107) 7.3 % COMPREHENSIVE METABOLIC [id number] 00:00:00 Test Item Value Reference Range Interpretation Comments GLUCOSE (test code = 2217) 113 MG/DL BUN (test code = 2208) 22 MG/DL CREATININE (test code = 2214) 0.9 MG/DL eGFR AMER. (test code 85 ML/MIN/1.73 = 08954) eGFR NON- AMER. (test 70 ML/MIN/1.73 code = 85782) CALCULATED BUN/CREAT (test 24 RATIO code = [...] code = 2219) 24 U/L COMPREHENSIVE METABOLIC [id number] 00:00:00 Test Item Value Reference Range Interpretation Comments GLUCOSE (test code = 2217) 113 MG/DL BUN (test code = 2208) 22 MG/DL CREATININE (test code = 2214) 0.9 MG/DL eGFR AMER. (test code 85 ML/MIN/1.73 = 09345) eGFR NON- AMER. (test 70 ML/MIN/1.73 code = 58449) CALCULATED BUN/CREAT (test 24 RATIO code = [...] code = 2219) 24 U/L CBC W/AUTO [id number] 00:00:00 Test Item Value Reference Range Interpretation [...] code = 1015) 270 K/UL CBC W/AUTO [id number] 00:00:00 Test Item Value Reference Range Interpretation [...] code = 1015) 270 K/UL CBC W/AUTO [id number] 00:00:00 Test Item Value Reference Range Interpretation [...] (test code = 1015) 270 K/UL HEMOGLOBIN [id number] 00:00:00 Test Item Value Reference Range Interpretation Comments HEMOGLOBIN A1c (test code = 43848) 7.3 % HEMOGLOBIN [id number] 00:00:00 Test Item Value Reference Range Interpretation Comments HEMOGLOBIN A1c (test code = 75577) 7.3 % HEMOGLOBIN [id number] 00:00:00 Test Item Value Reference Range Interpretation Comments HEMOGLOBIN A1c (test code = 06413) 7.3 % COMPREHENSIVE METABOLIC [id number] 00:00:00 Test Item Value Reference Range Interpretation Comments GLUCOSE (test code = 2217) 113 MG/DL BUN (test code = 2208) 22 MG/DL CREATININE (test code = 2214) 0.9 MG/DL eGFR AMER. (test code 85 ML/MIN/1.73 = 16288) eGFR NON- AMER. (test 70 ML/MIN/1.73 code = 70650) CALCULATED BUN/CREAT (test 24 RATIO code = [...] code = 2219) 24 U/L COMPREHENSIVE METABOLIC [id number] 00:00:00 Test Item Value Reference Range Interpretation Comments GLUCOSE (test code = 2217) 113 MG/DL BUN (test code = 2208) 22 MG/DL CREATININE (test code = 2214) 0.9 MG/DL eGFR AMER. (test code 85 ML/MIN/1.73 = 31839) eGFR NON- AMER. (test 70 ML/MIN/1.73 code = 13874) CALCULATED BUN/CREAT (test 24 RATIO code = [...] code = 2219) 24 U/L CBC W/AUTO [id number] 00:00:00 Test Item Value Reference Range Interpretation [...] code = 1015) 270 K/UL CBC W/AUTO [id number] 00:00:00 Test Item Value Reference Range Interpretation [...] code = 1015) 270 K/UL CBC W/AUTO [id number] 00:00:00 Test Item Value Reference Range Interpretation [...] (test code = 1015) 270 K/UL HEMOGLOBIN [id number] 00:00:00 Test Item Value Reference Range Interpretation Comments HEMOGLOBIN A1c (test code = 11335) 7.3 % HEMOGLOBIN [id number] 00:00:00 Test Item Value Reference Range Interpretation Comments HEMOGLOBIN A1c (test code = 15424) 7.3 % HEMOGLOBIN [id number] 00:00:00 Test Item Value Reference Range Interpretation Comments HEMOGLOBIN A1c (test code = 61132) 7.3 % COMPREHENSIVE METABOLIC [id number] 00:00:00 Test Item Value Reference Range Interpretation Comments GLUCOSE (test code = 2217) 113 MG/DL BUN (test code = 2208) 22 MG/DL CREATININE (test code = 2214) 0.9 MG/DL eGFR AMER. (test code 85 ML/MIN/1.73 = 46110) eGFR NON- AMER. (test 70 ML/MIN/1.73 code = 82343) CALCULATED BUN/CREAT (test 24 RATIO code = [...] code = 2219) 24 U/L COMPREHENSIVE METABOLIC [id number] 00:00:00 Test Item Value Reference Range Interpretation Comments GLUCOSE (test code = 2217) 113 MG/DL BUN (test code = 2208) 22 MG/DL CREATININE (test code = 2214) 0.9 MG/DL eGFR AMER. (test code 85 ML/MIN/1.73 = 28902) eGFR NON- AMER. (test 70 ML/MIN/1.73 code = 08941) CALCULATED BUN/CREAT (test 24 RATIO code = [...] code = 2219) 24 U/L CBC W/AUTO [id number] 00:00:00 Test Item Value Reference Range Interpretation [...] code = 1015) 270 K/UL CBC W/AUTO [id number] 00:00:00 Test Item Value Reference Range Interpretation [...] code = 1015) 270 K/UL CBC W/AUTO [id number] 00:00:00 Test Item Value Reference Range Interpretation [...] (test code = 1015) 270 K/UL HEMOGLOBIN [id number] 00:00:00 Test Item Value Reference Range Interpretation Comments HEMOGLOBIN A1c (test code = 98031) 7.3 % HEMOGLOBIN [id number] 00:00:00 Test Item Value Reference Range Interpretation Comments HEMOGLOBIN A1c (test code = 18427) 7.3 % HEMOGLOBIN [id number] 00:00:00 Test Item Value Reference Range Interpretation Comments HEMOGLOBIN A1c (test code = 20013) 7.3 % COMPREHENSIVE METABOLIC [id number] 00:00:00 Test Item Value Reference Range Interpretation Comments GLUCOSE (test code = 2217) 113 MG/DL BUN (test code = 2208) 22 MG/DL CREATININE (test code = 2214) 0.9 MG/DL eGFR AMER. (test code 85 ML/MIN/1.73 = 91315) eGFR NON- AMER. (test 70 ML/MIN/1.73 code = 87962) CALCULATED BUN/CREAT (test 24 RATIO code = [...] code = 2219) 24 U/L CBC W/AUTO [id number] 00:00:00 Test Item Value Reference Range Interpretation [...] code = 1015) 270 K/UL CBC W/AUTO [id number] 00:00:00 Test Item Value Reference Range Interpretation [...] (test code = 1015) 270 K/UL HEMOGLOBIN [id number] 00:00:00 Test Item Value Reference Range Interpretation Comments HEMOGLOBIN A1c (test code = 54948) 7.3 % HEMOGLOBIN [id number] 00:00:00 Test Item Value Reference Range Interpretation Comments HEMOGLOBIN A1c (test code = 09035) 7.3 % COMPREHENSIVE METABOLIC [id number] 00:00:00 Test Item Value Reference Range Interpretation Comments GLUCOSE (test code = 2217) 113 MG/DL BUN (test code = 2208) 22 MG/DL CREATININE (test code = 2214) 0.9 MG/DL eGFR AMER. (test code 85 ML/MIN/1.73 = 85878) eGFR NON- AMER. (test 70 ML/MIN/1.73 code = 36967) CALCULATED BUN/CREAT (test 24 RATIO code = [...] code = 2219) 24 U/L COMPREHENSIVE METABOLIC [id number] 00:00:00 Test Item Value Reference Range Interpretation Comments GLUCOSE (test code = 2217) 113 MG/DL BUN (test code = 2208) 22 MG/DL CREATININE (test code = 2214) 0.9 MG/DL eGFR AMER. (test code 85 ML/MIN/1.73 = 19743) eGFR NON- AMER. (test 70 ML/MIN/1.73 code = 89501) CALCULATED BUN/CREAT (test 24 RATIO code = [...] code = 2219) 24 U/L CBC W/AUTO [id number] 00:00:00 Test Item Value Reference Range Interpretation [...] code = 1015) 270 K/UL CBC W/AUTO [id number] 00:00:00 Test Item Value Reference Range Interpretation [...] code = 1015) 270 K/UL CBC W/AUTO [id number] 00:00:00 Test Item Value Reference Range Interpretation [...] (test code = 1015) 270 K/UL HEMOGLOBIN [id number] 00:00:00 Test Item Value Reference Range Interpretation Comments HEMOGLOBIN A1c (test code = 02869) 7.3 % HEMOGLOBIN [id number] 00:00:00 Test Item Value Reference Range Interpretation Comments HEMOGLOBIN A1c (test code = 83859) 7.3 % HEMOGLOBIN [id number] 00:00:00 Test Item Value Reference Range Interpretation Comments HEMOGLOBIN A1c (test code = 96630) 7.3 % COMPREHENSIVE METABOLIC [id number] 00:00:00 Test Item Value Reference Range Interpretation Comments GLUCOSE (test code = 2217) 113 MG/DL BUN (test code = 2208) 22 MG/DL CREATININE (test code = 2214) 0.9 MG/DL eGFR AMER. (test code 85 ML/MIN/1.73 = 53217) eGFR NON- AMER. (test 70 ML/MIN/1.73 code = 12905) CALCULATED BUN/CREAT (test 24 RATIO code = [...] code = 2219) 24 U/L COMPREHENSIVE METABOLIC [id number] 00:00:00 Test Item Value Reference Range Interpretation Comments GLUCOSE (test code = 2217) 113 MG/DL BUN (test code = 2208) 22 MG/DL CREATININE (test code = 2214) 0.9 MG/DL eGFR AMER. (test code 85 ML/MIN/1.73 = 44357) eGFR NON- AMER. (test 70 ML/MIN/1.73 code = 88323) CALCULATED BUN/CREAT (test 24 RATIO code = [...] code = 2219) 24 U/L CBC W/AUTO [id number] 00:00:00 Test Item Value Reference Range Interpretation [...] code = 1015) 270 K/UL CBC W/AUTO [id number] 00:00:00 Test Item Value Reference Range Interpretation [...] code = 1015) 270 K/UL CBC W/AUTO [id number] 00:00:00 Test Item Value Reference Range Interpretation [...] (test code = 1015) 270 K/UL HEMOGLOBIN [id number] 00:00:00 Test Item Value Reference Range Interpretation Comments HEMOGLOBIN A1c (test code = 56199) 7.3 % HEMOGLOBIN [id number] 00:00:00 Test Item Value Reference Range Interpretation Comments HEMOGLOBIN A1c (test code = 22673) 7.3 % HEMOGLOBIN [id number] 00:00:00 Test Item Value Reference Range Interpretation Comments HEMOGLOBIN A1c (test code = 36556) 7.3 % COMPREHENSIVE METABOLIC [id number] 00:00:00 Test Item Value Reference Range Interpretation Comments GLUCOSE (test code = 2217) 113 MG/DL BUN (test code = 2208) 22 MG/DL CREATININE (test code = 2214) 0.9 MG/DL eGFR AMER. (test code 85 ML/MIN/1.73 = 67858) eGFR NON- AMER. (test 70 ML/MIN/1.73 code = 40756) CALCULATED BUN/CREAT (test 24 RATIO code = [...] code = 2219) 24 U/L COMPREHENSIVE METABOLIC [id number] 00:00:00 Test Item Value Reference Range Interpretation Comments GLUCOSE (test code = 2217) 113 MG/DL BUN (test code = 2208) 22 MG/DL CREATININE (test code = 2214) 0.9 MG/DL eGFR AMER. (test code 85 ML/MIN/1.73 = 96488) eGFR NON- AMER. (test 70 ML/MIN/1.73 code = 32644) CALCULATED BUN/CREAT (test 24 RATIO code = [...] code = 2219) 24 U/L CBC W/AUTO [id number] 00:00:00 Test Item Value Reference Range Interpretation [...] code = 1015) 270 K/UL CBC W/AUTO [id number] 00:00:00 Test Item Value Reference Range Interpretation [...] code = 1015) 270 K/UL CBC W/AUTO [id number] 00:00:00 Test Item Value Reference Range Interpretation [...] (test code = 1015) 270 K/UL HEMOGLOBIN [id number] 00:00:00 Test Item Value Reference Range Interpretation Comments HEMOGLOBIN A1c (test code = 42748) 7.3 % HEMOGLOBIN [id number] 00:00:00 Test Item Value Reference Range Interpretation Comments HEMOGLOBIN A1c (test code = 72399) 7.3 % HEMOGLOBIN [id number] 00:00:00 Test Item Value Reference Range Interpretation Comments HEMOGLOBIN A1c (test code = 31980) 7.3 % Notes Date/Time Note Provider Source 2021-08-02 21:55:00-00:00 [facility] DT Operative Note REPORT#:[id number] REPORT STATUS: Signed DATE:08/02/21 TIME: 2154 PATIENT: MARGE FRANCO UNIT #: [id number] ROOM/BED: : 78 AGE: 41 SEX: F ATTEND: Bebeto Quiroga MD ADM AUTHOR: Bebeto Quiroga MD * ALL edits or amendments must be made on the [employer]/computer document * Operative Report Operative Note Note: DATE OF SERVICE: 07/31/21 PREOPERATIVE DIAGNOSIS: left volar wrist ganglio n cyst POSTOPERATIVE DIAGNOSIS: left volar wrist gangli on cyst OPERATION PERFORMED: left volar wrist ganglion c yst excision SURGEON: Bebeto Quiroga HOUSE REGISTRY RN SURGEON: Diaz simmons ANESTHESIA: general with local [...] was then prepped and draped in the [facility] sterile fashion. The arm was then exsanguinated [...] Bebeto Quiroga MD on 07/12 09/29 at 2156 [facility] #:[id number] END OF REPORT 2020-02-13 22:19:00-00:00 [id number] [facility] [address], [place] [address] PATIENT NAME: Marge Franco ADMIT DATE: 0 ACCOUNT NO: [id number] ROOM NO: AGE: 40 REPORT TYPE: HISTORY AND PHYSICAL SEX: F ADMITTING PHYSICIAN: ATTENDING PHYSICIAN:Judi Hodge DO ADMISSION DATE: 02/13/2020 HISTORY OF PRESENT ILLNESS: The patient is a 40- year-old female who is status post a right posterior tibial tendon reconstruct ion with debridement on 01/16/[address] [facility]. Today, she was walking the stairs, felt a pop on the back of her operative leg in t he Achilles area and felt significant pain. She was brought to [facility] for evaluation. Presently in [facility], she is in significant pain and [...] By: Judi Hodge DO WT: HP:DANY/NEYMAR/GM Conf#: [id number]/DID#: [id number] Authenticated by Judi Hodge DO On 0 07:57:56 AM Electronically Signed by Judi Hodge DO on 0 03/17/20 at 0758 PATIENT NAME: Marge Franco 6341 2020-01-16 12:10:00-00:00 [id number] [facility] [place] [address] PATIENT NAME: MARGE FRANCO ADMIT DREW E: 01/16/20 ACCOUNT NO: [id number] ROOM NO: AGE: 39 REPORT TYPE: OPERATIVE [...] Achilles lengtheni ng. SURGEON: Elbert Wilson MD HOUSE REGISTRY RN: LINDSAY Palma ANESTHESIA: General LMA with intraoperative [...] ligaments that were plicated with #2 FiberWire [id number] sutures. Once this was complete, a small [...] By: Elbert Wilson MD WT: OP:DANY/JENNY/GM Conf#: [id number]/DID#: [id number] Authenticated by Elbert Wilson MD On 01/19/2020 06:47:49 AM Electronically Signed by Elbert Wilson MD on at 0648 PATIENT NAME: MARGE FRANCO "
[2023-02-09 18:54] LABS: Absolute Lymphocytes (CBC) 3.1 K/uL (0.7-4.9); Hematocrit 36.6 % (36.0-45.0); Lymphocytes % 46.1 % (15.3-44.8); MCV 82.2 fL (80-100); MPV 7.5 fL (7.6-11.3); RBC Red Blood Cell Count 4.45 M/uL (3.86-4.86)
[2023-02-09 19:12] LABS: Bilirubin Total 0.4 mg/dL (0.2-1.0); Potassium 3.7 mEq/L (3.5-5.1); Protein, Total 7.9 g/dL (6.4-8.2)
[2023-02-09 19:34] LABS: Specific Gravity 1.026 (1.005-1.030)
[2023-02-09] MEDS ORDERED: PROMETHAZINE INJ 25 MG/ML AMP ONE (19:35)
[2023-02-09] MEDS ORDERED: NA CHLORIDE 0.9% 250 ML ONE (19:35)
[2023-02-09 19:36] LABS: Specific Gravity 1.026 (1.005-1.030); Urine Bacteria <20 /HPF (<20); Urine Bilirubin NEGATIVE (Negative); Urine Blood Negative (Negative); Urine Clarity Clear (Clear); Urine Color Light-Yellow (Yellow); Urine Glucose 4+ (Over) (Negative); Urine Mucus Slight /HPF (None Seen); Urine Protein TRACE (Negative); Urine RBC <5 /HPF (None Seen); Urine Urobilinogen Normal (Normal); Urine pH 5.5 (5.0-7.0)
--- NOTE | 2023-02-09 19:57 | RAD REPORT ---
EXAM DESCRIPTION: CTAbdomen Pelvis W Contrast - 02/09/2023 7:50 pm CLINICAL HISTORY: Abdominal pain. ABD PAIN COMPARISON: Abdomen Pelvis W Contrast dated 12/27/2022; Abdomen Pelvis W Contrast dated 10/29/2022 ; Abdomen Pelvis W Contrast dated 08/11/2022; Abdomen Pelvis W Contrast dated 07/31/2022 TECHNIQUE: Biphasic CT imaging of the abdomen and pelvis was performed with 100 ml non-ionic IV cont rast. All CT scans are performed using dose optimization technique as appropriate and may include automated exposure control or mA/KV adjustment according to patient size. FINDINGS: The lung bases are clear. The liver demonstrates diffuse fatty infiltration. Spleen, pancreas, adrenal glands and kidneys are w ithin normal limits. Punctate right renal calculus. Cholecystectomy. No bowel obstruction, free air, free fluid or abscess. The appendix is normal. No evidence of signi ficant lymphadenopathy. No suspicious bony findings. IMPRESSION: No acute intra-abdominal or pelvic finding. Diffuse fatty liver. Punctate right renal calculus.
--- NOTE | 2023-02-09 23:12 | EDPHYS ---
Physician Documentation [facility] Name: Valentina Franco Age: 43 yrs Sex: Female : 1980 Arrival Date: 02/09/2023 Time: 17:22 Bed 5 Private MD: ED Physician Johan Giron HPI: 02/09 18:13 This 43 yrs old Female presents to ER via Ambulatory with complaints of Pain sb4 With Urination, Blood in Urine. 18:13 Onset: The symptoms/episode began/occurred 3 day(s) ago. Associated signs and symptoms: sb4 Pertinent positives: dysuria, fever, Pertinent negatives: chest pain, vomiting. Modifying factors: The patient symptoms are alleviated by nothing, the patient symptoms are aggravated by nothing. The patient has experienced a previous episode. The patient has been recently seen by a physician: in the hospital. Patient complains of 3 days of worsening dysuria and pink-tinged urine. She states it has progressed to bilateral back pain and intermittent fevers. She states that she was hospitalized at [facility] 1 month ago for 2 weeks for a bacterial and yeast UTI. 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 - Social history:: Smoking status: Patient denies any tobacco usage or history of. ROS: 18:13 Constitutional: Positive for fever, Negative for body aches, chills. sb4 18:13 Back: Positive for flank pain, bilaterally. 18:13 : Positive for urinary frequency, hematuria, burning with urination, foul smelling urine, Negative for vaginal bleeding, vaginal discharge, vaginal itching. 18:13 All other systems are negative. 18:13 All other systems are negative. snw Exam: 18:13 Constitutional: This is a well developed, well nourished patient who is awake, alert, sb4 and in no acute distress. Head/Face: Normocephalic, atraumatic. Eyes: Extra-ocular motions intact. Periorbital areas with no swelling, redness, or edema. Cardiovascular: Regular rate and rhythm with a normal S1 and S2. Respiratory: Lungs have equal breath sounds bilaterally, clear to auscultation and percussion. No rales, rhonchi or wheezes noted. No increased work of breathing, no retractions or nasal flaring. Abdomen/GI: Soft, non-tender, no distension. Skin: Warm, dry with normal turgor. Normal color with no rashes, no lesions, and no evidence of cellulitis. MS/ Extremity: Pulses equal, no cyanosis. Neurovascular intact. Full, normal range of motion. 18:13 Back: CVA tenderness, that is moderate, is noted on the right. Vital Signs: 18:01 BP 141 / 92; Pulse 92; Resp 18; Temp 98.7(O); Pulse Ox 98% on R/A; Weight 102.97 kg; me1 Height 5 ft. 4 in. ; Pain 8/10; 18:39 BP 89 / 64; Pulse 78; Resp 16; Pulse Ox 99% ; bp 19:26 BP 120 / 85; Pulse 81; Resp 18; Pulse Ox 100% ; rv1 21:40 BP 93 / 65; Pulse 74; Resp 16; Pulse Ox 95% on R/A; ll3 22:45 BP 100 / 62 Supine; Pulse 71; Resp 14; Pulse Ox 99% on R/A; rv1 22:45 BP 122 / 79 Sitting; Pulse 74; Resp 16; Pulse Ox 99% on R/A; rv1 22:45 BP 116 / 76 Standing; Pulse 81; Resp 16; Pulse Ox 100% on R/A; rv1 18:01 Body Mass Index 38.96 (102.97 kg, 162.56 cm) me1 18:01 Pain Scale: Adult me1 MDM: 17:25 Patient medically screened. sb4 18:16 Differential diagnosis: UTI, pyelonephritis, nephrolithiasis, ureterolithiasis, yeast sb4 infection, STI. 19:07 Transition of care: After a detail discussion of the patient's case, care is sb4 transferred to [facility]. 19:39 Data reviewed: vital signs, nurses notes, lab test result(s). I considered the snw following discharge prescriptions or medication management in the emergency department Medications were administered in the Emergency Department. See MAR Pt has source of infection, no WBC or vital sign abnormality, no mental status changes. Lactate is 2.2. pt has had 1250ml NS, will give additional 1L bolus as her glucose is elevated. No sepsis.. 20:17 Awaiting: repeat FSBS and repeat lactate. snw 02/09 17:30 Order name: Urine W/Microscopic (UAM); Complete Time: 19:38 snw 02/09 18:01 Order name: CBC with Diff; Complete Time: 18:56 sb4 02/09 18:01 Order name: CMP; Complete Time: 19:18 sb4 02/09 18:01 Order name: Test, Urine; Complete Time: 19:41 sb4 02/09 18:01 Order name: Lactate w/ 2H reflex if indic.; Complete Time: 19:38 sb4 02/09 22:06 Order name: Glucose, Ancillary Testing; Complete Time: 22:20 EDMS 02/09 22:22 Order name: Lactate Sepsis 2 HR Follow-up; Complete Time: 22:28 EDMS 02/09 18:01 Order name: CT Abd/Pelvis - IV Contrast Only; Complete Time: 19:58 sb4 02/09 18:01 Order name: IV Saline Lock; Complete Time: 18:37 sb4 02/09 18:01 Order name: Labs collected and sent; Complete Time: 18:37 sb4 02/09 22:28 Order name: Orthostatics; Complete Time: 22:48 snw Administered Medications: 18:37 Drug: NS 0.9% IV 1000 ml Route: IV; Rate: 1 bolus; Site: right forearm; bp 19:31 Follow up: Response: No adverse reaction; IV Status: Completed infusion; IV Intake: ll3 1000ml 18:37 Drug: Famotidine IVP 20 mg Route: IVP; Site: right forearm; bp 22:01 Follow up: Response: No adverse reaction ll3 18:37 Drug: TORadol - Ketorolac IVP 15 mg Route: IVP; Site: right forearm; bp 22:01 Follow up: Response: No adverse reaction ll3 18:37 Drug: Ondansetron IVP 4 mg Route: IVP; Site: right forearm; bp 22:01 Follow up: Response: No adverse reaction ll3 19:31 Drug: NS 0.9% IV 250 ml Route: IV; Rate: bolus; Site: right antecubital; ll3 21:43 Follow up: Response: No adverse reaction; IV Status: Completed infusion; IV Intake: ll3 250ml 19:31 Drug: Promethazine IVP 25 mg Route: IVP; Site: right antecubital; ll3 21:43 Follow up: Response: No adverse reaction; Nausea is decreased ll3 20:18 Drug: NS 0.9% IV 1000 ml Route: IV; Rate: 1000 ml; Site: right antecubital; ll3 22:02 Follow up: Response: No adverse reaction; IV Status: Completed infusion; IV Intake: ll3 1000ml Disposition: 23:12 Chart complete. snw Disposition Summary: 02/09/23 23:11 Discharge Ordered Location: Home snw Problem: an acute exacerbation snw Symptoms: are unchanged snw Condition: Stable snw Diagnosis - Dehydration snw - Diabetes mellitus due to underlying condition with hyperglycemia snw Followup: snw - With: Emergency Department - When: As needed - Reason: Worsening of condition Followup: snw - With: Private Physician - When: 2 - 3 days - Reason: Recheck today's complaints, Continuance of care, Re-evaluation by your physician Discharge Instructions: - Discharge Summary Sheet snw - Dehydration, Adult snw - Diabetes Mellitus and Sick Day Management snw - Dysuria snw - Hyperglycemia snw - Daily Diabetes Mellitus Record snw - Rehydration, Adult snw Forms: - Medication Reconciliation Form snw - Thank You Letter snw - Antibiotic Education snw - Prescription Opioid Use snw - Patient Portal Instructions snw Signatures: Dispatcher [employer] EDNona Hamm, BALLET PROFESSOR-C BALLET PROFESSOR-Csnw Franky Smith, RN RN Fransisca Miller RN RN ll3 Shanthi Valdez PANakul PA-C sb4 Bety Pittman RN RN me1
--- NOTE | 2023-02-09 23:12 | ER ---
Nurse's Notes [facility] Name: Valentina Franco Age: 43 yrs Sex: Female : 1980 Arrival Date: 02/09/2023 Time: 17:22 Bed 5 Private MD: Diagnosis: Dehydration;Diabetes mellitus due to underlying condition with hyperglycemia Presentation: 02/09 17:58 Chief complaint: Patient states: hematuria, bilateral flank pain and burning and me1 itching after voiding x 3 days. today urine has started to have an odor. Coronavirus screen: Vaccine status: Patient reports receiving the 2nd dose of the covid vaccine. At this time, the client does not indicate any symptoms associated with coronavirus-19. Ebola Screen: No symptoms or risks identified at this time. Initial Sepsis Screen: Does the patient meet any 2 criteria? No. Patient's initial sepsis screen is negative. Does the patient have a suspected source of infection? No. Patient's initial sepsis screen is negative. Risk Assessment: Do you want to hurt yourself or someone else? Patient reports no desire to harm self or others. Onset of symptoms was February 05, 2023. 17:58 Method Of Arrival: Ambulatory ia1 17:58 Acuity: CYNTHIA 3 me1 Triage Assessment: 18:01 General: Appears uncomfortable, obese, well groomed, Behavior is calm, cooperative, me1 appropriate for age. Pain: Complains of pain in bilateral flank pain Pain does not radiate. Pain currently is 8 out of 10 on a pain scale. Quality of pain is described as stabbing, Pain began 2-3 days ago. Neuro: Level of Consciousness is awake, alert, obeys commands, Oriented to person, place, time, situation. Cardiovascular: Capillary refill < 3 seconds Patient's skin is warm and dry. Respiratory: Respiratory effort is even, unlabored, Respiratory pattern is regular, symmetrical. : Reports burning with urination, pain vaginal itching, blood in urine. TRAFFIC CHIEF: 18:01 LMP 01/17/2023 me1 Historical: - Allergies: 18:01 No Known Allergies; me1 - PMHx: 18:01 Anxiety; Depression; diabetes mellitus; High Cholesterol; Hypertensive disorder; me1 Pancreatitis; UTI; Kidney stone; sepsis; yeast infection; - PSHx: 18:01 section; Cholecystectomy; foot surgery; Heart ablation; Ligation of fallopian me1 tube; Tonsillectomy; - Immunization history:: Adult Immunizations up to date. - Social history:: Smoking status: Patient denies any tobacco usage or history of. Screenin:40 [facility] ED Fall Risk Assessment (Adult) History of falling in the last 3 months, bp including since admission No falls in past 3 months (0 pts). Abuse screen: Denies threats or abuse. Denies injuries from another. Nutritional screening: No deficits noted. Tuberculosis screening: No symptoms or risk factors identified. Assessment: 18:01 General: SEE TRIAGE NOTE. bp Vital Signs: 18:01 BP 141 / 92; Pulse 92; Resp 18; Temp 98.7(O); Pulse Ox 98% on R/A; Weight 102.97 kg; me1 Height 5 ft. 4 in. ; Pain 8/10; 18:39 BP 89 / 64; Pulse 78; Resp 16; Pulse Ox 99% ; bp 19:26 BP 120 / 85; Pulse 81; Resp 18; Pulse Ox 100% ; rv1 21:40 BP 93 / 65; Pulse 74; Resp 16; Pulse Ox 95% on R/A; ll3 22:45 BP 100 / 62 Supine; Pulse 71; Resp 14; Pulse Ox 99% on R/A; rv1 22:45 BP 122 / 79 Sitting; Pulse 74; Resp 16; Pulse Ox 99% on R/A; rv1 22:45 BP 116 / 76 Standing; Pulse 81; Resp 16; Pulse Ox 100% on R/A; rv1 18:01 Body Mass Index 38.96 (102.97 kg, 162.56 cm) me1 18:01 Pain Scale: Adult [facility] [place] Course: 17:24 Patient arrived in ED. rg4 17:25 Shanthi Valdez PA-C is PHCP. sb4 17:25 Johan Giron MD is Attending Physician. sb4 18:01 Triage completed. me1 18:01 Arm band placed on Patient placed in waiting room. me1 18:13 Franky Smith, PETE is Primary Nurse. bp 18:37 Inserted saline lock: 20 gauge in right forearm, using aseptic technique. Blood bp collected. 18:40 Patient has correct armband on for positive identification. Bed in low position. Call bp light in reach. Side rails up X2. 19:07 PHCP role handed off by Shanthi Valdez PA-C snw 19:07 Nona Ashby FNP-C is PHCP. snw 19:51 CT Abd/Pelvis - IV Contrast Only In Process Unspecified. EDMS 23:22 Provided Education on: Hyperglycemia. ll3 23:22 No provider procedures requiring assistance completed. IV discontinued, intact, ll3 bleeding controlled, No redness/swelling at site. Pressure dressing applied. Administered Medications: 18:37 Drug: NS 0.9% IV 1000 ml Route: IV; Rate: 1 bolus; Site: right forearm; bp 19:31 Follow up: Response: No adverse reaction; IV Status: Completed infusion; IV Intake: ll3 1000ml 18:37 Drug: Famotidine IVP 20 mg Route: IVP; Site: right forearm; bp 22:01 Follow up: Response: No adverse reaction ll3 18:37 Drug: TORadol - Ketorolac IVP 15 mg Route: IVP; Site: right forearm; bp 22:01 Follow up: Response: No adverse reaction ll3 18:37 Drug: Ondansetron IVP 4 mg Route: IVP; Site: right forearm; bp 22:01 Follow up: Response: No adverse reaction ll3 19:31 Drug: NS 0.9% IV 250 ml Route: IV; Rate: bolus; Site: right antecubital; ll3 21:43 Follow up: Response: No adverse reaction; IV Status: Completed infusion; IV Intake: ll3 250ml 19:31 Drug: Promethazine IVP 25 mg Route: IVP; Site: right antecubital; ll3 21:43 Follow up: Response: No adverse reaction; Nausea is decreased ll3 20:18 Drug: NS 0.9% IV 1000 ml Route: IV; Rate: 1000 ml; Site: right antecubital; ll3 22:02 Follow up: Response: No adverse reaction; IV Status: Completed infusion; IV Intake: ll3 1000ml Medication: 23:22 VIS not applicable for this client. ll3 Intake: 19:31 IV: 1000ml; Total: 1000ml. ll3 21:43 IV: 250ml; Total: 1250ml. ll3 22:02 IV: 1000ml; Total: 2250ml. ll3 Outcome: 23:11 Discharge ordered by . snw 23:22 Discharged to home ambulatory. ll3 23:22 Condition: stable 23:22 Discharge instructions given to patient, family, Instructed on discharge instructions, follow up and referral plans. Demonstrated understanding of instructions, follow-up care. 23:23 Patient left the ED. 3 Signatures: Dispatcher [employer] EDNona Hamm, CHILDBIRTH EDUCATOR-C CHILDBIRTH EDUCATOR-Yvonnew Gem Kwon rg4 Franky Smith, RN RN bp Fransisca Iglesias RN RN ll3 Shanthi Valdez PA-C PA-C sb4 Lisa Loya rv1 eBty Pittman RN RN me1
[2023-02-09 23:33] VITALS: TEMP 98.7
[2023-02-09 23:39] VITALS: BP 116/76; O2SAT 100
== END 2023-02-09 23:23 | disposition home or self-care (01) ==
LOC: ER 17:22
DX: E86.0 Dehydration (principal); E11.65 Type 2 diabetes mellitus with hyperglycemia; R50.9 Fever, unspecified; R31.9 Hematuria, unspecified; I10 Essential (primary) hypertension; Z87.442 Personal history of urinary calculi
CPT/HCPCS: 85025; 81001; 36415; 81025; 82947; 83605 ×2; 80053; 74177; Q9967; J2550; J2405; J7050; J7030 ×2

== ENCOUNTER 2023-02-21 02:19 | Emergency (ER) | payer OTHER ==
[2023-02-21] MEDS ORDERED: IBUPROFEN 400 MG TAB ONE (03:14)
--- OUTSIDE RECORDS SUMMARY | 2023-02-21 03:40 | XMS REPORT | Continuity of Care Document ---
:1980 Author Organization [facility] t Address [address] [place] [address] Care Team Providers Name Role Phone [phone] Primary Care Physician Unavailable Bebeto Quiroga Attending Clinician Unavailable Eblert Wilson Attending Clinician Unavailable ORLY THORPE Attending Clinician Unavailable AMNA CUTLER Attending Clinician Unavailable VALDEZ MINOR Attending Clinician Unavailable ARLENE RAIN I Attending Clinician Unavailable LAB90 Attending Clinician Unavailable NETO PEOPLES Attending Clinician Unavailable ZOYA GONZALEZ Attending Clinician Unavailable NICOLÁS EID Attending Clinician Unavailable GUDELIA GARCIA Attending Clinician Unavailable Ngoc Tinajero MD Attending Clinician Gudelia Garcia DO Attending Clinician MD DONALD Attending Clinician Unavailable JUDI MCCLELLAND Attending Clinician Unavailable IVELISSE MORRISON Attending Clinician Unavailable Lonimaris CARDOZO, Katelyn Attending Clinician KATELYN IVEY Attending Clinician Unavailable FABIO ZAMORA Attending Clinician Unavailable YRIS HARRIS Attending Clinician Unavailable Delvin FREEMAN, Leslie Monaco Attending Clinician MERI WRAY Attending Clinician Unavailable Robert Lutz MD Attending Clinician Meri Wray MD Attending Clinician Silvina Vallecillo MD Attending Clinician [phone] BEATRIZ EDUARDO Attending Clinician Unavailable Alesha ANDERSON, Beatriz Cross Attending Clinician JN MILLER Attending Clinician Unavailable Jn Miller DO Attending Clinician José Miguel CARDOZO, Jade Attending Clinician FOZIA JANG Attending Clinician Unavailable Fozia Jang MD Attending Clinician MARY JAY Attending Clinician Unavailable Mary Lopez S Attending Clinician Doron Grijalva MD Attending Clinician DORON GRIJALVA Attending Clinician Unavailable FABIO AVALOS Attending Clinician Unavailable BRYSON GONZALEZ Attending Clinician Unavailable Lily Deleon PA-C Attending Clinician LESLEE SMITH Attending Clinician Unavailable LILY DELEON Attending Clinician Unavailable Doctor Unassigned, [place] Attending Clinician Unavailable STANISLAW SUN Attending Clinician Unavailable ABHIJIT GALAN Attending Clinician Unavailable Kit Lopez Attending Clinician Unavailable KNOW, DOES_NOT Admitting Clinician Unavailable LeleAddison cabezaspierre Admitting Clinician Unavailable Physician, No Primary or [...] Policy Number Effective Date Expiration Date S sally CIGNA GENERIC [id number] 2019 00:00:00 AETNA MP CVS 9 [id number] 2022 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 00:00:00 ON STAND [employer]ET[employer] COMMERCIAL [id number] 2022 OUT OF NETWORK 00:00:00 COMMERCIAL [id number] 2021 NON-CONTRACT 00:00:00 GENERIC Problems Condition Condition Condition Status Onset Resolution Last Treating Co mments Source Name Details Category Date Date Treatment Clinician Date Generalize Generalize Disease Active U nivers d d 7-03 [place]y of abdominal abdominal [place] [facility] [place] Immunodefi Immunodefi Disease Active K devi ciency due ciency due 3-06 Se ybold to to 00:00: - conditions conditions 00 Ex terna classified classified l elsewhere elsewhere Gastroesop Gastroesop Disease Active K devi hageal hageal 2-28 Seybold reflux reflux [...] Externa l Depression Depression Disease Active K elsey with with 2-28 Seybold anxiety anxiety 00:00: - 00 Externa l DM type 2 DM type 2 Disease Active Spencer sey with with 2-28 Seybold diabetic diabetic 00:00: - mixed mixed 00 Externa hyperlipid hyperlipid l emia emia Hypertrigl Hypertrigl Disease Active U nivers yceridemia yceridemia 2-16 it y of 00:00: [place] [facility] Essential Essential Disease Active Uni vers hypertensi hypertensi 5-26 it y of on on 00:: [place] [facility] POTS POTS Disease Active Univers (postural (postural 5-26 ity of orthostati orthost[place] c c 00 Medical tachycardi tachycardi Br anch a a syndrome) syndrome) Dyslipidem Dyslipidem Disease Active U nivers ia ia 5-26 ity of 00:00: [place] [facility] Atypical Atypical Disease Active Unive rs chest pain chest pain 5-25 it y of 00:00: [place] [facility] Pancreatit Pancreatit Disease Active U nivers is, is, 4-24 ity of recurrent recurrent 00:00: [place] [facility] [place] Vulvar Vulvar Disease Active Methodi [...] surgical 1-30 ity of incision incision 00:00: [place] 00 Medical Branch Mood Mood Disease Active Univers swings swings 1-30 ity of 00:00: [place] [facility] Gestationa Gestationa Disease Active 2012-07 [...] the original. 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 Immune to Immune to Disease [...] 00 dic Hospita l alcohol FA Active [place] HIVES [facility] 07-30 [place] 00:00: Orthope 00 dic Hospita l tequila DA Active CA hives [facility] 07-30 [place] 00:00: Orthope 00 dic Hospita l alcohol FA Active MO [facility] 01-15 [place] 00:00: Orthope 00 dic Hospita l alcohol FA Active MO HIVES TO [facility] TEQUILA 01-15 [place] 00:00: Orthope 00 dic Hospita l tequila DA Active MO hives [facility] 01-09 [place] 00:00: Fonseca 00 [facility] Cefpodox Propensi Active Other (See Eye and M ethodi dewayne ty to Comments) 8-[address] adverse 00:00: Swelling Hospita reaction 00 30 mins l s to after drug taking medicatio n alcohol FA Active CA 2015-07 [facility] 2 [place] 00:00: Orthope 00 dic Hospita l alcohol FA Active CA TURNS RED 2015-07 [facility] 09-06 [place] 00:00: Orthope 00 dic Hospita l NO KNOWN Drug Active Univers ALLERGIE Class ity of S [place] [facility] Family History Family Member Diagnosis Comments Start Date Stop Date Source Natural brother Diabetes [facility] Natural father [facility] Natural mother Diabetes [facility] Natural sister Diabetes [facility] Social History Social Habit Start Date Stop Date Quantity Comments Source Gender identity [facility] Sexual orientation [facility] History SDOH Social Unive rsity of [facility] Med ical Together Branch History SDOH Social Unive rsity of [facility] Branch History SDOH Social Unive rsity of [facility] Medical Membership Branch History SDOH Social Unive rsity of [facility] Medical Meetings Branch History SDOH Social 2023-01-11 2023-01-11 5 Unive rsity of Connections Phone 00:00:00 00:00:00 [place] M edical Branch History SD[facility] Social 2023-01-11 2023-01-11 5 Unive rsity of Connections Living 00:00:00 00:00:00 [place] [facility] History SDOH 2023-01-11 2023-01-11 0 University o f Physical Activity 00:00:00 00:00:00 [place] M edical DPW Branch History SD[facility] 2023-01-11 2023-01-11 0 University o f Physical Activity 00:00:00 00:00:00 [place] M edical MPS Branch History SDOH 2023-01-11 2023-01-11 5 University o f Financial 00:00:00 00:00:00 [place] [facility] History SDOH Food 2023-01-11 2023-01-11 1 Univers ity of Worry 00:00:00 00:00:00 [place] [facility] History SDOH Food 2023-01-11 2023-01-11 1 Univers ity of Scarcity 00:00:00 00:00:00 [place] [facility] History SDOH 2023-01-11 2023-01-11 2 University o f Transport Med 00:00:00 00:00:00 [place] Medic al Branch History SDOH 2023-01-11 2023-01-11 2 University o f Transport Non-Med 00:00:00 00:00:00 [place] M edical Branch History SDOH 2023-01-11 2023-01-11 2 University o f Housing Unable to 00:00:00 00:00:00 [place] M edical Pay Branch History SD[facility] 2023-01-11 2023-01-11 1 University o f Housing Places 00:00:00 00:00:00 [place] Medi bonita Lived Branch History SDOH 2023-01-11 2023-01-11 2 University o f Housing Homeless 00:00:00 00:00:00 [place] Me wallis Last Year Branch Education 2023-01-10 2023-01-10 14 University of 00:00:00 00:00:00 [facility] Branch Exposure to 2022-10-24 2022-11-03 Not sure University of SARS-CoV-2 (event) 00:00:00 08:52:00 [facility] Tobacco use and 2022-08-26 2022-08-26 Smokeless Universit y of exposure 00:00:00 00:00:00 tobacco non-user [facility] Alcohol intake 2019-11-22 2019-11-22 Current drinker Metho dist 00:00:00 00:00:00 of alcohol Hospital ([facility]) History of Social 2019-11-22 2019-11-[address] function 00:00:00 00:00:00 Hospital History [facility] 2019-11-22 2019-11-22 2 [facility]ist Alcohol Frequency 00:00:00 00:00:00 Hospita l History [facility] 2019-11-22 2019-11-22 1 [facility] Alcohol Std Drinks 00:00:00 00:00:00 Hospit al History [facility] 2019-11-22 2019-11-22 1 [facility] Alcohol Binge 00:00:00 00:00:00 Hospital Alcohol Comment 2016-09-09 2016-09-09 Megan occa. Meth odist 00:00:00 00:00:00 Hospital Sex Assigned At [birth year] [facility] 00:00:00 00:00:00 Hospital Smoking Status Start Date Stop Date Source Never smoked tobacco [facility] Medications Ordered Filled Start Stop Current Ordering Indication Dosage Frequency Signature Comments Components Source Medication Medication Date Date Medication? Clinician (SIG) Name Name Lisinopril Yes 5mg Take 1 Kelse y 5 MG oral 8-10 tablet (5 Seybo ld Tablet 16:33: mg total) - by mouth Externa daily l Fluconazole 0 2022- Yes [id number] 150mg Take 1 Andreea 150 MG oral 8-10 08-11 tablet Seybo ld Tablet 00:00: 04:59 (150 mg - 00 :00 total) by Externa mouth once l for 1 dose Meloxicam Yes [id number] TAKE 1 Andreea 15 MG oral 7-26 9107 TABLET BY Seyb old Tablet 00:00: MOUTH - 00 EVERY DAY Externa NEEDED l FOR PAIN [place]-3 Yes 1{capsu Take 1 Unive rs Fatty 7-05 le} capsule by ity of Acids-Vitam 11:23: mouth in [place] in E 44 the Medical 2,000-650-1 morning Branc h 2 mg/2.5 and 1 gram ElPk capsule in the evening. insulin Yes 16U inject 16 Unive rs aspart 05 Units ity of injection 11:23: under the [...] dapaglifloz Yes Take by Uni vers in 05 mouth. Not ity of propanediol 11:23: sure of [place] as (FARXIGA 44 dose Medical ORAL) Branch doxycycline 0 2022- Yes [id number] 100mg Take 1 Univers hyclate 100 01-1216 capsule by i ty of mg capsule 00:00: 04:59 mouth [place] 00 :00 every 12 Medical (twelve) Branch hours for 10 days. metroNIDAZO 0 2022- Yes [id number] 500mg Take 1 Univers LE 500 mg 01-1216 tablet by ity of tablet 00:00: 04:59 mouth [place] 00 :00 every 12 Medical (twelve) Branch hours for 10 days. ondansetron 2022- Yes [id number] 4mg Take 1 Univers 4 mg 01-12 tablet by ity of disintegrat 00:00: 04:59 [...] 00 First dose Medical on Tue Branch 01/11/23 at 0900, Until Discontinu ed, Routine insulin Yes 16U 16 Units, Unive rs lispro 01-11 Subcutaneo ity of (human) 13:00: us, TID [place] (HumaLOG 00 MEALS, Medical U-100) First dose Branch injection on Tue 16 Units 01/11/23 at 0800, Until Discontinu ed doxycycline 2022- Yes 100mg 100 mg, U nivers hyclate 01-10 0708 Oral, ity of (Vibramycin 23:00: 22:59 Q12HA2, 10 [place] ) capsule 00 :00 doses, Medical 100 [...] ity of dextrose, 21:00: 20:59 s, Q6H [place] iso-osm 00 :00 ABX, 20 Medical (MEFOXIN) [...] 1000mL at 125 Unive rs ringers IV 01-10 mL/hr, ity of infusion 17:15: 1,000 mL, [...] 1000mL at 999 Univ ers ringers IV 01-10 07-04 mL/hr, ity of infusion 17:00: 00:17 1,000 mL, [place] as 1,000 mL 00 :00 Intravenou Medic al s, ONCE, 1 Branch dose, On Tue01/10/23 at 1200, Routine ondansetron 2022- No 4mg 4 mg, Slow Univers (ZOFRAN 01-10 IV Push, ity of (PF)) 16:45: 16:19 ONCE, 1 [place] injection 4 00 :00 [...]
Duration of Therapy: Other (see Comments) doxycycline 0 2022- No 100mg 100 mg, IV Univers [...] IV Push, ity of (PF)) 16:10: Q6HPRN, [place] injection 4 22 Starting Medi bonita mg on Tue01/10/23 at 1110, Until Discontinu ed, Routine, Nausea and Vomiting (N/V) glucagon Yes 1mg 1 mg, Univers (GLUCAGEN 01-10 Intramuscu ity of DIAGNOSTIC 16:08: lar, PRN, [place] KIT) 51 Starting Medical injection 1 on Tue01/10/23 at 1108, Until Discontinu ed, MALAIKA, Blood [...] or has mental status changes. FENTanyl PF No 50ug 50 mcg, Un fabiana (SUBLIMAZE 01-10 Slow IV ity o f (PF)) 16:08: 16:07 Push, [place] injection 19 :19 Q3HPRN, Medical 50 mcg Starting Branch on Tue01/10/23 at 1108, Until Tue01/11/23 at 1107, Routine, Pain (scale 7-10) HYDROcodone 2022- No 1{tbl} 1 tablet, Univers -acetaminop 01-10 Oral, ity of hen (NORCO 16:08: 16:07 Q6HPRN, [place] as 5) 5-325 mg 17 :17 Starting Medi bonita tablet 1 on Tue tablet 01/10/23 at 1108, Until Tue01/12/23 at 1107, Routine, Pain (scale 4-6) acetaminoph Yes 650mg 650 mg, Un fabiana en 01-10 Oral, ity of (TYLENOL) 16:08: Q6HPRN, [place] tablet 650 14 Starting Medic al mg on Tue Branch 01/10/23 at 1108, Until Discontinu ed, Routine, Pain (scale 1-3) iopamidol 2022- No [id number] 73mL 73 mL, Univers (ISOVUE 01-10 Intravenou ity o f 370-500 mL) 16:00: 16:00 s, ONCE, 1 [place] injection 00 :00 dose, On Medica l 73 mL Tue01/10/23 Branch at 1100, Routine NaCl 0.9% 2022- No 1000mL at 999 Uni vers (NS) bolus 01-1003 mL/hr, ity of infusion 14:15: 16:22 1,000 mL, [place] as 1,000 mL 00 :00 IV Medical Infusion, Branch ONCE, 1 dose, On Tue01/10/23 at 0915, MALAIKA ondansetron 2022- No 4mg 4 mg, Slow Univers (ZOFRAN 01-10 IV Push, ity of (PF)) 13:30: 13:36 ONCE, 1 [place] injection 4 00 :00 dose, On Medi bonita mg Tue01/10/23 Branch at 0830, MALAIKA morpHINE (4 2022- No 4mg 4 mg, Slow Univers mg/mL) 01-10 IV Push, ity of injection 4 13:30: 13:36 ONCE, 1 [place] mg 00 :00 dose, On Medical Tue01/10/23 Branch at 0830, STAT Lisinopril 0 Yes 5mg Take 1 Kelse y 5 MG oral 6-27 tablet (5 Seybo ld Tablet 15:42: mg total) - 26 by mouth Externa daily l Spironolact 2022- Yes [id number] 100mg Take 1 Andreea one 100 MG 6-27 12-25 tablet Seybol d oral Tablet 00:00: 05:59 (100 mg - 00 :00 total) by Externa mouth at l bedtime With full glass of water. Spironolact 2022- Yes [id number] 100mg Take 1 Andreea one 100 MG 6-27 12-25 tablet Seybol d oral Tablet 00:00: 05:59 (100 mg - 00 :00 total) by Externa mouth at l bedtime With full glass of water. Trazodone 2022-0 Yes 1 1/2 Andreea HCl 100 MG 6-26 tablets QD Sey bold oral Tablet 00:00: - 00 Externa l Trazodone 2022-0 Yes 1 1/2 Andreea HCl 100 MG 6-26 tablets QD Sey bold oral Tablet 00:00: - 00 Externa l Dapaglifloz 2022-2022- No 1{tbl} 1 tablet Andreea in 12-21- daily Seybold Propanediol 14:32: 00:00 - () 34 :00 Externa 10 MG oral l Tablet Lisinopril 0 Yes 5mg Take 1 Kelse y 5 MG oral 6-13 tablet (5 Seybo ld Tablet 14:00: mg total) - 59 by mouth Externa daily l Ezetimibe 2022-0 Yes [id number] 10mg Take 1 K elsey 10 MG oral 6-13 tablet (10 Sey bold Tablet 00:00: mg total) - 00 by mouth Externa daily l Dapaglifloz 2022-0 Yes [id number] 1{tbl} Take 1 Andreea in 6-13 3 tablet by Seybold Propanediol 00:00: mouth - (xi) 00 daily Externa 10 MG oral l Tablet Insulin 2022-0 Yes [id number] Inject 12 Andreea Aspart 6-13 3 units Plus Seybold (NovoLOG 00:00: sliding - FlexPen) 00 scale 2 Externa 100 UNIT/ML unit for l subcutaneou every 50 s Solution above 150 Pen-injecto (maximum r 70 units per day) Ezetimibe 2022-0 Yes [id number] 10mg Take 1 K elsey 10 MG oral 6-13 tablet (10 Sey bold Tablet 00:00: mg total) - 00 by mouth Externa daily l Dapaglifloz 2022-0 Yes [id number] 1{tbl} Take 1 Andreea in 6-13 3 tablet by Seybold Propanediol 00:00: mouth - (xi) 00 daily Externa 10 MG oral l Tablet Insulin 2022-0 Yes [id number] Inject 12 Andreea Aspart 6-13 3 units Plus Seybold (NovoLOG 00:00: sliding - FlexPen) 00 scale 2 Externa 100 UNIT/ML unit for l subcutaneou every 50 s Solution above 150 Pen-injecto (maximum r 70 units per day) Ezetimibe 3-0 Yes [id number] 10mg Take 1 K elsey 10 MG oral 6-13 tablet (10 Sey bold Tablet 00:00: mg total) - 00 by mouth Externa daily l Dapaglifloz 2022-0 Yes [id number] 1{tbl} Take 1 Andreea in 6-13 3 tablet by Seybold Propanediol 00:00: mouth - (xi) 00 daily Externa 10 MG oral l Tablet Insulin 2022-0 Yes [id number] Inject 12 Andreea Aspart 6-13 3 units [...] - TABLET SR 56 :00 by mouth Leather Toggler a 24 HR daily l Pantoprazol 2022- [...] mouth 4 Externa times l daily Dapaglifloz Yes 1{tbl} 1 tablet Andreea in 12-17 daily Seybold Propanediol 14:57: - (Farxiga) 18 Externa 10 MG oral l Tablet Lisinopril 0 Yes 5mg Take 1 Kelse y 5 MG oral 12-17 tablet (5 Seybo ld Tablet 14:57: mg total) - 18 by mouth Externa daily l [place]-3 2022-0 Yes [id number] 1999{ca Take 2,000 Andreea 1000 MG 12-17 psule} capsules Seybol d oral 00:00: by mouth 2 - Capsule 00 times Externa daily l Trazodone 2022-0 Yes [id number] 50mg Take 1 Spencer sey HCl 50 MG 6-09 tablet (50 Seyb old oral Tablet 00:00: mg total) - 00 by mouth Externa nightly l Fluoxetine 2022-0 Yes [id number] 20mg Take 1 Andreea HCl 20 MG 6-09 capsule Seybold oral 00:00: (20 mg - Capsule 00 total) by Externa mouth l daily busPIRone 2022-0 Yes [id number] 10mg Take 1 K elsey HCl 10 MG 6-09 tablet (10 Seyb old oral Tablet 00:00: mg total) - 00 by mouth 2 Externa times l daily Trazodone 2022-0 Yes [id number] 50mg Take 1 Spencer sey HCl 50 MG 6-09 tablet (50 Seyb old oral Tablet 00:00: mg total) - 00 by mouth Externa nightly l Fluoxetine 2022-0 Yes [id number] 20mg Take 1 Andreea HCl 20 MG 6-09 capsule Seybold oral 00:00: (20 mg - Capsule 00 total) by Externa mouth l daily busPIRone 2022-0 Yes [id number] 10mg Take 1 K elsey HCl 10 MG 6-09 tablet (10 Seyb old oral Tablet 00:00: mg total) - 00 by mouth 2 Externa times l daily Icosapent 2022-0 Yes [id number] 2{capsu Take 2 Andreea Ethyl 1 g 6-09 le} capsules Seybol d oral 00:00: by mouth 2 - Capsule 00 times Externa daily l Fluoxetine 2022-0 Yes [id number] 20mg Take 1 Andreea HCl 20 MG 6-09 capsule Seybold oral 00:00: (20 mg - Capsule 00 total) by Externa mouth l daily busPIRone 2022-0 Yes [id number] 10mg Take 1 K elsey HCl 10 MG 6-09 tablet (10 Seyb old oral Tablet 00:00: mg total) - 00 by mouth 2 Externa times l daily Icosapent 2022-0 Yes [id number] 2{capsu Take 2 Andreea Ethyl 1 g 6-09 le} capsules Seybol d oral 00:00: by mouth 2 - Capsule 00 times Externa daily l Fluoxetine 2022-0 Yes [id number] 20mg Take 1 Andreea HCl 20 MG 6-09 capsule Seybold oral 00:00: (20 mg - Capsule 00 total) by Externa mouth l daily busPIRone 2022-0 Yes [id number] 10mg Take 1 K elsey HCl 10 MG 6-09 tablet (10 Seyb old oral Tablet 00:00: mg total) - 00 by mouth 2 Externa times l daily Icosapent 2022-0 Yes [id number] 2{capsu Take 2 Andreea Ethyl 1 g 6- le} capsules Seybol d oral 00:00: by mouth 2 - Capsule 00 times Externa daily l Trazodone 2022-0 2023- No [id number] 50mg Take 1 Ke lsey HCl 50 MG 6-03 16- tablet (50 Sey bold oral Tablet 00:00: 00:00 mg total) - 00 :00 by mouth Externa nightly l Meloxicam 2022-0 Yes [id number] TAKE 1 Andreea 15 MG oral 5-25 9107 TABLET BY Seyb old Tablet 00:00: MOUTH - 00 EVERY DAY Externa NEEDED l FOR PAIN Meloxicam 2022-0 Yes [id number] TAKE 1 Andreea 15 MG oral 5-25 9107 TABLET BY Seyb old Tablet 00:00: MOUTH - 00 EVERY DAY Externa NEEDED l FOR PAIN Meloxicam 2022-0 Yes [id number] TAKE 1 Andreea 15 MG oral 5-25 9107 TABLET BY Seyb old Tablet 00:00: MOUTH - 00 EVERY DAY Externa NEEDED l FOR PAIN Hydrocortis 2022-0 3- No TAKE 2 Spencer sey one 10 MG 5-25 06-09 TABLET BY Seyb old oral Tablet 00:00: 00:00 MOUTH IN - 00 :00 THE Externa MORNING l AND 1 TABLET BY MOUTH IN THE EVENING busPIRone 2022-0 2022- No Andreea HCl 10 MG 5-24 06-09 Seybold oral Tablet 00:00: 00:00 - 00 :00 Externa l Fluoxetine 3-0 2022- No Andreea HCl 20 MG 5-24 06-09 Seybold oral 00:00: 00:00 - Capsule 00 :00 Externa l Trazodone 2022-0 2022- No Andreea HCl 50 MG 5-24 06-09 Seybold oral Tablet 00:00: 00:00 - 00 :00 Externa l Promethazin 2023-0 Yes [id number] TAKE 1 TAB Andreea e HCl 5-21 (25 MG) BY Seybold (PHENERGAN) 00:00: MOUTH - 25 MG oral 00 EVERY 6 Leather Toggler a Tablet HOURS l NEEDED FOR NAUSEA / VOMITING Promethazin 0 Yes [id number] TAKE 1 TAB Andreea e HCl 5-21 (25 MG) BY Seybold (PHENERGAN) 00:00: MOUTH - 25 MG oral 00 EVERY 6 Leather Toggler a Tablet HOURS l NEEDED FOR NAUSEA / VOMITING Promethazin 0 Yes [id number] TAKE 1 TAB Andreea e HCl 5-21 (25 MG) BY Seybold (PHENERGAN) 00:00: MOUTH - 25 MG oral 00 EVERY 6 Leather Toggler a Tablet HOURS l NEEDED FOR NAUSEA / VOMITING Promethazin 0 Yes [id number] TAKE 1 TAB Andreea e HCl 5-21 (25 MG) BY Seybold (PHENERGAN) 00:00: MOUTH - 25 MG oral 00 EVERY 6 Leather Toggler a Tablet HOURS l NEEDED FOR NAUSEA / VOMITING HYDROcodone 2022- No 1{tbl} Q.25D Take 1 Andreea -Acetaminop 5-21 12-17 tablet by Se ybold hen 10-325 00:00: 00:00 mouth - MG oral 00 :00 every 6 Externa Tablet hours as l needed FOR PAIN Phenazopyri 2022- No 100mg Take 1 Ke lsey dine HCl -12-17 tablet Seybold 100 MG oral 00:00: 00:00 [...] bonita 1:1:1 Wed Branch ([facility]22 at [facility]) 0945, oral Routine suspension 15 mL ketorolac No 30mg 30 mg, Unive rs (TORADOL) 11-03 Slow IV ity of injection 14:30: 14:36 Push, [place] 30 mg 00 :00 ONCE, 1 Medical dose, On Branch Tue11/03/22 at 0930, MALAIKA ondansetron 2022- No 4mg 4 mg, Slow Univers (ZOFRAN 11-03 IV Push, ity of (PF)) 14:30: 14:35 ONCE, 1 [place] injection 4 00 :00 dose, On Medi bonita mg Wed Branch 11/03/22 at 0930, MALAIKA dicyclomine Yes [id number] 20mg Take 1 Univers 20 mg 4-26 tablet by ity of tablet 00:00: mouth 4 [place] 00 (four) Medical times Branch daily as needed for Abdominal pain. ondansetron Yes [id number] 4mg Take 1 Univers 4 mg 4-26 tablet by ity of disintegrat 00:00: mouth [place] ing tablet 00 every 12 Medic al (twelve) Branch hours as needed for Nausea and Vomiting (N/V). dicyclomine 2022- No [id number] 20mg Take 1 Univers 20 mg 4-26 07-03 tablet by ity of tablet 00:00: 00:00 mouth 4 [place] 00 :00 (four) Medical times Branch daily as needed for Abdominal pain. ondansetron 2022- No [id number] 4mg Take 1 Univers 4 mg 4-26 07-03 tablet by ity of disintegrat 00:00: [...] NEEDED FOR NAUSEA AND VOMITING Atorvastati Yes [id number] 80mg Take 1 Andreea n Calcium 4-18 tablet (80 Seyb old 80 MG oral 00:00: mg total) - Tablet 00 by mouth Externa daily l Insulin Yes [id number] 10U Inject 10 Andreea Aspart 4-18 3 units into Seybold (NovoLOG 00:00: the skin 3 - FlexPen) 00 times Externa 100 UNIT/ML daily l subcutaneou (before s Solution meals) Pen-injecto Plus r sliding scale 1 unit for every 50 above 150 (maximum 50 units per day) Insulin Yes [id number] 100U Inject 100 Andreea Glargine 4-18 3 units into Seybo ld (Basaglar 00:00: the skin - KwikPen) 00 at bedtime Exter na 100 UNIT/ML l subcutaneou s Solution Pen-injecto r Metformin Yes [id number] 1000mg Take 1 Andreea HCl 1000 MG 4-18 3 tablet Seybol d oral Tablet 00:00: (1,000 mg - 00 total) by Externa mouth in l the morning and 1 tablet (1,000 mg total) in the evening. Take with meals. Atorvastati Yes [id number] 80mg Take 1 Andreea n Calcium 4-18 tablet (80 Seyb old 80 MG oral 00:00: mg total) - Tablet 00 by mouth Externa daily l Insulin Yes [id number] 100U Inject 100 Andreea Glargine 4-18 3 units into Seybo ld (Basaglar 00:00: the skin - KwikPen) 00 at bedtime Exter na 100 UNIT/ML l subcutaneou s Solution Pen-injecto r Metformin Yes [id number] 1000mg Take 1 Andreea HCl 1000 MG 4-18 3 tablet Seybol d oral Tablet 00:00: (1,000 mg - 00 total) by Externa mouth in l the morning and 1 tablet (1,000 mg total) in the evening. Take with meals. Atorvastati Yes [id number] 80mg Take 1 Andreea n Calcium 4-18 tablet (80 Seyb old 80 MG oral 00:00: mg total) - Tablet 00 by mouth Externa daily l Insulin Yes [id number] 100U Inject 100 Andreea Glargine 4-18 3 units into Seybo ld (Basaglar 00:00: the skin - KwikPen) 00 at bedtime Exter na 100 UNIT/ML l subcutaneou s Solution Pen-injecto r Metformin Yes [id number] 1000mg Take 1 Andreea HCl 1000 MG 4-18 3 tablet Seybol d oral Tablet 00:00: (1,000 mg - 00 total) by Externa mouth in l the morning and 1 tablet (1,000 mg total) in the evening. Take with meals. Atorvastati 0 Yes [id number] 80mg Take 1 Andreea n Calcium 4-18 tablet (80 Seyb old 80 MG oral 00:00: mg total) - Tablet 00 by mouth Externa daily l Insulin 2022-0 Yes [id number] 100U Inject 100 Andreea Glargine 4-18 3 units into Seybo ld (Basaglar 00:00: the skin - KwikPen) 00 at bedtime Exter na 100 UNIT/ML l subcutaneou s Solution Pen-injecto r Metformin 2022-0 Yes [id number] 1000mg Take 1 Andreea HCl 1000 MG 4-18 3 tablet Seybol d oral Tablet 00:00: (1,000 mg - 00 total) by Externa mouth in l the morning and 1 tablet (1,000 mg total) in the evening. Take with meals. Insulin 2022- No [id number] 10U Inject 10 Andreea Aspart 4-18 06-13 [...] nightly - Tablet 28 Externa l Pantoprazol 2022-0 Yes 40mg Take [...] SR 28 Externa 24 HR l Sucralfate 0 Yes 1g Take 1 g Spencer sey 1 g oral 3-24 by mouth 4 Seybo ld Tablet 15:48: times - 28 daily Externa l Lisinopril 0 Yes 5mg Take 5 mg Ke lsey 5 MG oral 3-24 by mouth Seybol d Tablet 15:48: daily - 28 Externa l Meloxicam 0 Yes [id number] 15mg QD Take 1 Andreea 15 MG [...] times - 34 daily Externa l Atorvastati 0 Yes 80mg Take 80 mg Andreea n Calcium 3-03 by mouth Seybol d 80 MG oral 10:09: daily - Tablet 34 Externa l Aripiprazol Yes Take by Spencer sey e 10 MG 3-03 mouth Seybold oral Tablet 10:09: - 34 Externa l Dapaglifloz Yes 1{tbl} 1 tablet Andreea in 3-03 daily Seybold Propanediol 10:09: - () 34 Externa 10 MG oral l Tablet [...] daily - 34 Externa l Continuous Yes [id number] Use as Andreea Blood Gluc 3-03 3 directed Seybo ld Transmit 00:00: for - (Dexcom G6 00 continuous Ext john Transmitter glucose l ) does not monitoring apply Misc with Dexcom system Continuous Yes [id number] Use as [place]reea Blood Gluc 3-03 3 directed Seybo ld 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 00:00: for - (Dexcom G6 00 continuous Ext john 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) glucose l does not monitoring apply Device Continuous Yes [id number] Use as Andreea Blood Gluc 3-03 3 directed Seybo ld Sensor 00:00: for - (Dexcom G6 00 continuous Ext john Sensor) glucose l does not monitoring apply Misc with Dexcom system Ostomy Yes [id number] Use as Ke lsey Supplies 3-03 3 directed Seybold (Skin Tac 00:00: for - Adhesive 00 continuous Exter na Barrier glucose l Wipe) does monitoring not apply with Misc Dexcom system Fenofibrate Yes [id number] 160mg Take 1 Andreea 160 MG oral 3-03 tablet Seybol d Tablet 00:00: (160 mg - 00 total) by Externa mouth l daily Insulin 2023-0 Yes [id number] 10U Inject 10 Andreea Aspart 3-03 3 units into Seybold (NovoLOG 00:00: the skin 3 - FlexPen) 00 times Externa 100 UNIT/ML daily l subcutaneou (before s Solution meals) Pen-injecto Plus r sliding scale 1 unit for every 50 above 150 (maximum 50 units per day) Continuous Yes [id number] Use as Andreea Blood Gluc 3-03 3 directed Seybo ld Transmit 00:00: for - (Dexcom G6 00 continuous Ext john Transmitter glucose l ) does not monitoring apply Misc with Dexcom system Continuous Yes [id number] Use as [place]ree[place] Blood Gluc 3-03 3 directed Seybo ld 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 00:00: for - (Dexcom G6 00 continuous Ext john 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) glucose l does not monitoring apply Device Continuous Yes [id number] Use as [place]reea Blood Gluc 3-03 3 directed Seybo ld Sensor 00:00: for - (Dexcom G6 00 continuous Ext john Sensor) glucose l does not monitoring apply Misc with Dexcom system Ostomy Yes [id number] Use as Ke lsey Supplies 3-03 3 directed Seybold (Skin Tac 00:00: for - Adhesive 00 continuous Exter na Barrier glucose l Wipe) does monitoring not apply with Misc Dexcom system Fenofibrate Yes [id number] 160mg Take 1 Andreea 160 MG oral 3-03 tablet Seybol d Tablet 00:00: (160 mg - 00 total) by Externa mouth l daily Continuous Yes [id number] Use as Andreea Blood Gluc 3-03 3 directed Seybo ld Transmit 00:00: for - (Dexcom G6 00 continuous Ext john Transmitter glucose l ) does not monitoring apply Misc with Dexcom system Continuous Yes [id number] Use as [place]reea Blood Gluc 3-03 3 directed Seybo ld 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 00:00: for - (Dexcom G6 00 continuous Ext john 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) glucose l does not monitoring apply Device Continuous Yes [id number] Use as Andreea Blood Gluc 3-03 3 directed Seybo ld Sensor 00:00: for - (Dexcom G6 00 continuous Ext john Sensor) glucose l does not monitoring apply Misc with Dexcom system Ostomy Yes [id number] Use as Ke lsey Supplies 3-03 3 directed Seybold (Skin Tac 00:00: for - Adhesive 00 continuous Exter na Barrier glucose l Wipe) does monitoring not apply with Misc Dexcom system Fenofibrate Yes [id number] 160mg Take 1 Andreea 160 MG oral 3-03 tablet Seybol d Tablet 00:00: (160 mg - 00 total) by Externa mouth l daily Continuous Yes [id number] Use as Andreea Blood Gluc 3-03 3 directed Seybo ld Transmit 00:00: for - (Dexcom G6 00 continuous Ext john Transmitter glucose l ) does not monitoring apply Misc with Dexcom system Continuous Yes [id number] Use as Andreea Blood Gluc 3-03 3 directed Seybo ld 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 00:00: for - (Dexcom G6 00 continuous Ext john 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) glucose l does not monitoring apply Device Continuous Yes [id number] Use as Andreea Blood Gluc 3-03 3 directed Seybo ld Sensor 00:00: for - (Dexcom G6 00 continuous Ext john Sensor) glucose l does not monitoring apply Misc with Dexcom system Ostomy Yes [id number] Use as Ke lsey Supplies 3-03 3 directed Seybold (Skin Tac 00:00: for - Adhesive 00 continuous Exter na Barrier glucose l Wipe) does monitoring not apply with Misc Dexcom system Fenofibrate Yes [id number] 160mg Take 1 Andreea 160 MG oral 3-03 tablet Seybol d Tablet 00:00: (160 mg - 00 total) by Externa mouth l daily Continuous Yes [id number] Use as Andreea Blood Gluc 3-03 3 directed Seybo ld Transmit 00:00: for - (Dexcom G6 00 continuous Ext john Transmitter glucose l ) does not monitoring apply Misc with Dexcom system Continuous Yes [id number] Use as [place]reea Blood Gluc 3-03 3 directed Seybo ld 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 00:00: for - (Dexcom G6 00 continuous Ext john 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) glucose l does not monitoring apply Device Continuous 0 Yes [id number] Use as [place]reea Blood Gluc 3-03 3 directed Seybo ld Sensor 00:00: for - (Dexcom G6 00 continuous Ext john Sensor) glucose l does not monitoring apply Misc with Dexcom system Fenofibrate Yes [id number] 160mg Take 1 Andreea 160 MG oral 3-03 tablet Seybol d Tablet 00:00: (160 mg - 00 total) by Externa mouth l daily Continuous Yes [id number] Use as [place]reea Blood Gluc 3-03 3 directed Seybo ld Transmit 00:00: for - (Dexcom G6 00 continuous Ext john Transmitter glucose l ) does not monitoring apply Misc with Dexcom system Continuous Yes [id number] Use as [place] Blood Gluc 3-03 3 directed Seybo ld 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 00:00: for - (Dexcom G6 00 continuous Ext john 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) glucose l does not monitoring apply Device Continuous Yes [id number] Use as [place]reea Blood Gluc 3-03 3 directed Seybo ld Sensor 00:00: for - (Dexcom G6 00 continuous Ext john Sensor) glucose l does not monitoring apply Misc with Dexcom system Ostomy Yes [id number] Use as Ke lsey Supplies 3-03 3 directed Seybold (Skin Tac 00:00: for - Adhesive 00 continuous Exter na Barrier glucose l Wipe) does monitoring not apply with Misc Dexcom system Fenofibrate Yes [id number] 160mg Take 1 Andreea 160 MG oral 3-03 tablet Seybol d Tablet 00:00: (160 mg - 00 total) by Externa mouth l daily Insulin Yes [id number] 10U Inject 10 Andreea Aspart 3-03 3 units into Seybold (NovoLOG 00:00: the skin 3 - FlexPen) 00 times Externa 100 UNIT/ML daily l subcutaneou (before s Solution meals) Pen-injecto Plus r sliding scale 1 unit for every 50 above 150 (maximum 50 units per day) Ostomy 2022- No [id number] Use as K elsey Supplies 3-03 08-10 3 directed Seybol d (Skin Tac 00:00: 00:00 for - Adhesive 00 :00 continuous Exter na Barrier glucose l Wipe) does monitoring not apply with Misc Dexcom system Insulin Yes [id number] 100U Inject 100 Andreea Glargine 3-01 3 units into Seybo ld (Basaglar 00:00: the skin - KwikPen) 00 at bedtime Exter na 100 UNIT/ML l subcutaneou s Solution Pen-injecto r [place]-3 Yes [id number] 1000{ca Take 1,000 Andreea 1000 MG 3-01 psule} capsules Seybol d oral 00:00: by mouth 3 - Capsule 00 times Externa daily l Insulin Yes [id number] 100U Inject 100 Andreea Glargine 3-01 3 units into Seybo ld (Basaglar 00:00: the skin - KwikPen) 00 at bedtime Exter na 100 UNIT/ML l subcutaneou s Solution Pen-injecto r [place]-3 Yes [id number] 1000{ca Take 1,000 Andreea 1000 MG 3-01 psule} capsules Seybol d oral 00:00: by mouth 3 - Capsule 00 times Externa daily l [employer]-3 2022- No [id number] 1000{ca Take 1,000 Andreea 1000 MG 3-01 06-09 psule} capsules Seybo ld oral 00:00: 00:00 by mouth 3 - Capsule 00 :00 times Externa daily l Insulin 2022- No [id number] 10U Inject 10 Andreea Aspart 3-01 03-03 3 units into Seybol d (NovoLOG 00:00: 00:00 the skin 3 - FlexPen) 00 :00 times Externa 100 UNIT/ML daily l subcutaneou (before s Solution meals) Pen-injecto r [employer] [place]-3 2022- No Take by Andreea 1000 MG [...] l subcutaneou s Solution Pen-injecto r Amitriptyli 2022-0 2022- No 10mg Take 10 mg Andreea ne HCl 10 -28 -28 by mouth Seybo ld MG oral 15:10: 00:00 at bedtime - Tablet 02 :00 Externa l MethIMAzole 2022-0 2022- No 10mg Take 10 mg Andreea 10 MG oral -28 02-28 by mouth Seyb old Tab 15:01: 00:00 [...] 10 mg Ke lsey 10 MG oral 09-07 by mouth Seybo ld Tablet 14:59: daily - 38 Externa l Lisinopril Yes 5mg Take 5 mg Ke l[place] 5 MG oral 09-07 by mouth Seybol d Tablet 14:59: daily - 38 Externa l [employer]-3 Yes [id number] 1000{ca Take 1,000 Andreea 1000 MG - psule} capsules Seybol d oral 00:00: by mouth 3 - Capsule 00 times Externa daily l Insulin Yes [id number] 10U Inject 10 Andreea Aspart - 3 units into Seybold (NovoLOG 00:00: the skin 3 - FlexPen) 00 times Externa 100 UNIT/ML daily l subcutaneou (before s Solution meals) Pen-injecto r Insulin Yes [id number] 100U Inject 100 Andreea Glargine -28 3 units into Seybo ld (Basaglar 00:00: the skin - KwikPen) 00 at bedtime Exter na 100 UNIT/ML l subcutaneou s Solution Pen-injecto r Insulin 2022- No [id number] 100U Inject 100 Andreea Glargine -28 02- 3 units into Seyb old (Basaglar 00:00: [...] U-100) 00 First dose Medical injection on Mon Branch 50 Units 08/30/22 at 0845, Until Discontinu ed, Routine D5W 0.45% 2022- No IV Univers NaCl 2-20 02-20 Infusion, ity of (1/2NS) 1 L 03:00: 14:25 at 100 [place] as + KCL 20 00 :34 mL/hr, Medical mEq CONTINUOUS Branch , Starting on 08/29/22 at 2100, Until 08/30/22 at 0825, Routine insulin Yes [id number] 72U inject 72 Univers degludec 2-20 Units ity of (TRESIBA 00:00: [facility] skin 2 Medical U-100) 100 (two) Branch unit/mL (3 times mL) InPn daily. insulin Yes [id number] 72U inject 72 Univers degludec 2-20 Units ity of (TRESIBA 00:00: [facility] F[facility] skin 2 Medical U-100) 100 (two) Branch unit/mL (3 times mL) InPn daily. insulin Yes [id number] 72U inject 72 Univers degludec 2-20 Units ity of (TRESIBA 00:00: [place] FLEXTOUCH 00 skin 2 Medical U-100) 100 (two) Branch unit/mL (3 times mL) InPn daily. insulin 2022- No [id number] 72U inject 72 Univers degludec 2-20 07-03 Units ity of (TRESIBA 00:00: 00:00 under the [place] as FLEXTOUCH 00 :00 skin 2 Medical U-100) 100 (two) Branch unit/mL (3 times mL) InPn daily. atorvastati 2022- No [id number] 80mg Take 1 Univers n 80 mg 2-20 - tablet by ity of tablet 00:00: 04:59 mouth at [place] 00 :00 bedtime Medical for 30 Branch days. FORTUNATO, 2022- No [id number] 1g Take 1 Un fabiana omega-3-aci 08-30 capsule by i ty of d ethyl 00:00: 04:59 mouth in [place] esters, 1 00 :00 the Medical gram morning Branch capsule and 1 capsule in the evening. Do all this for 30 days. atorvastati 2022- No [id number] 80mg Take 1 Univers n 80 mg 08-30 tablet by ity of tablet 00:00: 04:59 mouth at [place] 00 :00 bedtime Medical for 30 Branch days. LOVAZA, 2022- No [id number] 1g Take 1 Un fabiana omega-3-aci 08-30 capsule by i ty of d ethyl 00:00: 04:59 mouth in [place] esters, 1 00 :00 the Medical gram [...] -18 Oral, ity of (TYLENOL) 18:48: Q6HPRN, [place] tablet 650 59 Starting Medic al mg [...] 1000mL at 100 Uni vers NaCl 08-28 mL/hr, ity of (1/2NS) IV 14:30: 21:45 1,000 mL, [place] infusion 00 :17 IV Medical 1,000 mL Infusion, Branch CONTINUOUS , Starting on 08/28/22 at 0830, Until 08/29/22 at 1545, Routine morpHINE (2 2022-0 Yes 2mg 2 mg, Slow Univers mg/mL) -17 IV Push, ity of injection 2 20:13: [...] 2-17 Oral, ity of ESTRIL) 15:00: DAILY, [place] tablet 2.5 00 First dose Med ical mg on Tue Branch 08/27/22 at 0900, Until Discontinu ed, Routine fenofibrate 0 Yes 134mg 134 mg, Un fabiana micronized -17 Oral, ity of (LOFIBRA) 15:00: DAILY, [place] capsule 134 00 First dose Me dical mg on Tue Branch 08/27/22 at 0900, Until Discontinu ed, Routine gabapentin 2022-0 Yes 600mg 600 mg, Uni vers (NEURONTIN) -17 Oral, BID, it y of tablet 600 02:00: First dose [place] mg 00 on [facility] Medical 08/26/22 at Branch 2000, Until Discontinu [...] g, IV Univ ers sulfate in 08-27 02-17 Piggyback, it y of water 2 01:30: [...] has mental status changes. NaCl 0.9% 2022-0 2022- No 1000mL at 200 Uni vers (NS) IV 08-27 02-19 mL/hr, IV ity of infusion 00:00: 21:45 Infusion, [place] as 1,000 mL 00 :17 CONTINUOUS Medic al , Starting Branch on [facility] 08/26/22 at 1800, Until 08/29/22 at 1545, [...] First dose [place] mg 00 on [facility] 08/26/22 at Branch 1700, Until Discontinu ed, Routine insulin 2022- No 8U 8 Units, Unive rs regular 08-26 Slow IV ity of human 23:00: 23:06 Push, [place] (HUMULIN R) 00 :00 ONCE, 1 Medic al injection 8 dose, On Bran ch Units [facility] 08/26/22 at 1700, STAT
In dication for insulin: Hyperglyce shea NaCl 0.9% 2022- No 2000mL at 999 Uni vers (NS) bolus 08-26 mL/hr, ity of infusion 21:45: 23:52 2,000 mL, [place] as 2,000 mL 00 :00 IV Medical Piggyback, Branch ONCE, 1 dose, On [facility] 08/26/22 at 1545, STAT insulin 2022- No 10U 10 Units, Univ ers regular 08-26 Slow IV ity of human 21:00: 21:11 [place], [place] (HUMULIN R) 00 :00 ONCE, 1 Medic al injection dose, On Branch 10 Units [facility] 08/26/22 at 1500, STAT
In dication for insulin: Hyperglyce shea Lactobacill 2022- No Take by Un fabiana us 08-26 mouth. ity of acidophilus 18:46: 00:00 [place] (PROBIOTIC 18 :00 Medical ORAL) Branch MULTIVITAMI 2022- No Take by Un fabiana N ORAL 08-26 mouth. ity of 18:46: 00:00 [place] 18 :00 Medical Branch multivitami 2022-0 3- No Take by Tony andre with 2-16 02-16 mouth. ity of minerals 18:46: 00:00 [place] (HAIR,SKIN 18 :00 Medical AND NAILS Branch [...] 2021- No DIRECTED. 2-14 00:00: 00 Dose 2021-1 [...] MOUTH EVERY 00:00: DAY 00 1 TABLET 2021-1 No WITH FOOD 2-14 FOR 10 00:00: CONSECUTIVE 00 DAYS EACH MONTH ORALLY TAKE 1 2021- No TABLET BY 2-14 MOUTH EVERY 00:00: 4 HOURS 00 NEEDED FOR NAUSEA AND VOMITING . TAKE 1 2021-1 No TABLET BY 2-14 MOUTH EVERY 00:00: 6 HOURS 00 NEEDED FOR PAIN (SCALE 7-10). INDICATIONS : ACUTE PAIN Dose 2021-1 No Unknown 2-14 00:00: 00 Dose 2021-1 No Unknown 2-14 00:00: 00 TAKE 3 2021-1 No CAPSULES BY 2-14 MOUTH EVERY 00:00: DAY 00 TAKE 1 2021-1 No TABLET BY 2-14 MOUTH THREE 00:00: TIMES A DAY 00 NEEDED FOR PAIN TAKE 1 2021-1 No TABLET BY 2-14 MOUTH EVERY 00:00: 4 DAYS 00 Dose 2022-1 No Unknown 2-14 00:00: 00 TAKE 1 [...] 2021-07 No DIRECTED. 2-14 00:00: 00 Dose No Unknown 2-14 00:00: 00 USE 3-4 [...] 2-13 ity of 1000 mL + 02:00: [place] KCL 20 mEq 00 [facility] Branch D5W 0.45% 2021-07 Yes 1000mL at [...] 00 :00 dose, On Medi bonita mg [facility] Branch 06/21/22 at 1900, MALAIKA NaCl 0.9% [...] 7-13 00:00: 00 Dose 2022-0 No Unknown 6-03 00:00: 00 Dose 2022-0 No Unknown 6-03 00:00: 00 Valium 10 2-0 No 1mg mg tablet 6 00:00: 00 [...] 1mg 100 mg 6- capsule 00:00: 00 Dose 2022-0 No Unknown [...] mL 00:00: mL) (18 mg/3 00 mL) [facility] Tresiba 2-0 No (3 [...] 4-15 00:00: 00 Dose 2-0 No Unknown 4-15 00:00: 00 Dose 2-0 No Unknown 4-15 00:00: 00 Dose 2-0 No Unknown 4-15 00:00: 00 Dose 2-0 [...] 4-13 00:00: 00 Dose 2-0 No Unknown 4- 00:00: 00 Dose 2-0 No Unknown 4-13 00:00: 00 Dose 2-0 No Unknown 4- 00:00: 00 NaCl 0.9% 2021- No 1000mL at 999 Uni vers (NS) IV 10-17 mL/hr, ity of infusion 02:00: 02:08 Intravenou [place] 1,000 mL 00 :00 s, ONCE, 1 Medic al dose, On Branch Tue10/16/21 at 2100, [place] insulin 2021- No .1U/kg 10.3 Units U nivers regular 10-17 (rounded ity of human 02:00: 01:[address] (HUMULIN R) 00 :00 Units = [...] mg Tue10/16/21 Branch at 1815, [place] ketorolac 0 2021- No 30mg 30 mg, Unive rs (TORADOL) 10-16 Slow IV ity of injection 23:15: 23:05 [place], [place] 30 mg 00 :00 ONCE, 1 Medical dose, On Branch Tue10/16/21 at 1815, Routine
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 ondansetron 2021-0 Yes [id number] 4mg Take 1 Univers 4 mg 4-08 tablet by ity of disintegrat 00:00: mouth [place] ing tablet 00 every 8 Medica l (eight) Branch hours as needed for Nausea and Vomiting (N/V). oxybutynin 2-0 Yes [id number] 5mg Take 1 Univers chloride 5 4-08 tablet by ity of mg tablet 00:00: mouth 3 [place] 00 (three) Medical times Branch daily as needed for Bladder spasms. ondansetron 2021-0 Yes [id number] 4mg Take 1 Univers 4 mg 4-08 tablet by ity of disintegrat 00:00: mouth [place] ing tablet 00 every 8 Medica l (eight) Branch hours as needed for Nausea and Vomiting (N/V). oxybutynin 2021-0 Yes [id number] 5mg Take 1 Univers chloride 5 4-08 tablet by ity of mg tablet 00:00: mouth 3 [place] 00 (three) Medical times Branch daily as needed for Bladder spasms. ondansetron 2021-0 Yes [id number] 4mg Take 1 Univers 4 mg 4-08 tablet by ity of disintegrat 00:00: mouth [place] ing tablet 00 every 8 Medica l (eight) Branch hours as needed for Nausea and Vomiting (N/V). oxybutynin 2021-0 Yes [id number] 5mg Take 1 Univers chloride 5 4-08 tablet by ity of mg tablet 00:00: mouth 3 [place] 00 (three) Medical times Branch daily as needed for Bladder spasms. ondansetron 2021-0 Yes [id number] 4mg Take 1 Univers 4 mg 4-08 tablet by ity of disintegrat 00:00: mouth [place] ing tablet 00 every 8 Medica l (eight) Branch hours as needed for Nausea and Vomiting (N/V). oxybutynin 2021-0 Yes [id number] 5mg Take 1 Univers chloride 5 4-08 tablet by ity of mg tablet 00:00: mouth 3 [place] 00 (three) Medical times Branch daily as needed for Bladder spasms. ondansetron 2021-0 Yes [id number] 4mg Take 1 Univers 4 mg 4-08 tablet by ity of disintegrat 00:00: mouth [place] ing tablet 00 every 8 Medica l (eight) Branch hours as needed for Nausea and Vomiting (N/V). oxybutynin 2021-0 2022- No [id number] 5mg Take 1 Univers chloride 5 4-08 07-03 tablet by ity of mg tablet 00:00: 00:00 mouth 3 [place] 00 :00 (three) Medical times Branch daily as needed for Bladder spasms. ondansetron 2021-0 2022- No [id number] 4mg Take 1 Univers 4 mg 4-08 07-03 tablet by ity of disintegrat 00:00: 00:00 mouth [place] ing tablet 00 :00 every 8 Medica l (eight) Branch hours as needed for Nausea and Vomiting (N/V). traMADoL 50 2021-0 2021- No [id number] 50mg Take 1 Uni vers mg tablet 4- 04-16 tablet by ity of 00:00: 04:59 [...] 3-29 00:00: 00 Dose 2021-0 No Unknown 329 00:00: 00 Dose 2021-0 No Unknown 3 [...] No Unknown 1-19 00:00: 00 morpHINE 2021-1 2021- No 4mg 4 mg, Slow Un fabiana [...] 30mg 30 mg, Unive rs (TORADOL) 2-09 - Slow IV ity of injection 13:15: 12:10 [...] Indication s: acute pain ondansetron 2020-07 Yes [id number] 4mg Take 1 Univers 4 mg 2-09 [...] Indication s: acute pain ondansetron 2020-07 Yes [id number] 4mg Take 1 Univers 4 mg 2-09 [...] Indication s: acute pain ondansetron 2020-07 Yes [id number] 4mg Take 1 Univers 4 mg 2-09 [...] Indication s: acute pain ondansetron 2020-07- No [id number] 4mg Take 1 Univers 4 mg 08-19 [...] 150 mg 2-08 tablet 00:00: 00 hydrochloro 2021-1 No 1mg thiazide 25 2-08 mg tablet [...] 05/30/21 at 1800, Routine iopamidol 2020-07- No [id number] 100mL 100 mL, Univers (ISOVUE 07-30 9109 Intravenou ity o f 370-500 mL) 23:48: 23:48 s, ONCE, 1 [place] injection 00 :00 dose, On Medica l 100 mL Sat Branch 05/30/21 at 1800, Routine ibuprofen 2020-07 Yes [id number] 600mg Take 1 Univers 600 mg 1-20 [id number] tablet by ity of tablet 00:00: mouth [place] 00 every 6 Medical (six) Branch hours as needed for Pain (scale 4-6). traMADoL 50 2020-07 Yes [id number] 50mg Take 1 Univ ers mg tablet 1-20 tablet by ity o f 00:00: mouth [place] 00 every 6 Medical (six) Branch hours as needed for Pain (scale 7-10). Indication s: acute pain ibuprofen 2020-07 Yes [id number] 600mg Take 1 Univers 600 mg -20 [id number] tablet by ity of tablet 00:00: mouth [place] 00 every 6 Medical (six) Branch hours as needed for Pain (scale 4-6). traMADoL 50 2020-07 Yes [id number] 50mg Take 1 Univ ers mg tablet 1-20 tablet by ity o f 00:00: mouth [place] 00 every 6 Medical (six) Branch hours as needed for Pain (scale 7-10). Indication s: acute pain ibuprofen 2020-07 Yes [id number] 600mg Take 1 Univers 600 mg 1-20 [id number] tablet by ity of tablet 00:00: mouth [place] 00 every 6 Medical (six) Branch hours as needed for Pain (scale 4-6). traMADoL 50 2020-07 Yes [id number] 50mg Take 1 Univ ers mg tablet 1-20 tablet by ity o f 00:00: mouth [place] 00 every 6 Medical (six) Branch hours as needed for Pain (scale 7-10). Indication s: acute pain ibuprofen 2020-07 Yes [id number] 600mg Take 1 Univers 600 mg 1-20 [id number] tablet by ity of tablet 00:00: mouth [place] 00 every 6 Medical (six) Branch hours as needed for Pain (scale 4-6). traMADoL 50 2020-07 Yes [id number] 50mg Take 1 Univ ers mg tablet 1-20 tablet by ity o f 00:00: mouth [place] 00 every 6 Medical (six) Branch hours as needed for Pain (scale 7-10). Indication s: acute pain ibuprofen 2020-07 Yes [id number] 600mg Take 1 Univers 600 mg 1-20 [id number] tablet by ity of tablet 00:00: mouth [place] 00 every 6 Medical (six) Branch hours as needed for Pain (scale 4-6). ibuprofen 2020-07 Yes [id number] 600mg Take 1 Univers 600 mg 1-20 [id number] tablet by ity of tablet 00:00: mouth [place] 00 every 6 Medical (six) Branch hours as needed for Pain (scale 4-6). ibuprofen 2020-07- No [id number] 600mg Take 1 Univers 600 mg 1-20 02-16 [id number] tablet by ity o f tablet 00:00: [...] Pain (scale 7-10). Indication s: acute pain [facility] 2020-07 No 1mg mg tablet 07-11 00:00: 00 [facility] 2020-07 No 1mg mg tablet 07-11 00:00[facility] 07-11 00:00: 00 [facility] 2020-07 No 1mg mg tablet 07-11 00:00: 00 [facility] 2020-07 No 1mg mg tablet 07-11 00:00: 00 [facility] 2020-07 No 1mg mg tablet 07-11 00:00: 00 [facility] 2020-07 No 1mg mg tablet 07-11 00:00: 00 [facility] 2020-07 No 1mg mg tablet 07-11 00:00: 00 [facility] 2020-07 No 1mg mg tablet 07-11 00:00: [...] 50 mg 0-07 tablet 00:00: 00 sumatriptan 2020- No 1mg 50 mg 0-07 tablet 00:00: 00 sumatriptan 2020-07 No 1mg 50 mg 0-07 tablet 00:00: 00 Dose 2020-1 No Unknown 0-07 00:00: 00 Dose 2020-1 No Unknown 0-07 00:00: 00 Tresiba 2021-0 [...] 300 mg 04-07 capsule 00:00: 00 Dose 2021-0 No Unknown [...] 2021-0 No Unknown 04-07 00:00: 00 Augmentin 2021-0 No 1mg 875 [...] 9-13 00:00: 00 VASCEPA 1 2020-0 Yes [id number] TAKE 3 U nivers gram 9-10 CAPSULES ity of capsule 00:00: BY MOUTH [place] EVERY DAY Medical Branch VASCEPA 1 2020-0 Yes [id number] TAKE 3 U nivers gram 9-10 CAPSULES ity of capsule 00:00: BY MOUTH [place] EVERY DAY Medical Branch VASCEPA 1 2020-0 Yes [id number] TAKE 3 U nivers gram 9-10 CAPSULES ity of capsule 00:00: BY MOUTH [place] EVERY DAY Medical Branch VASCEPA 1 2020-0 Yes [id number] TAKE 3 U nivers gram 9-10 CAPSULES ity of capsule 00:00: BY MOUTH [place] EVERY DAY Medical Branch VASCEPA 1 2020-0 Yes [id number] TAKE 3 U nivers gram 9-10 CAPSULES ity of capsule 00:00: BY MOUTH [place] EVERY DAY Medical Branch VASCEPA 1 2020-0 Yes [id number] TAKE 3 U nivers gram 9-10 CAPSULES ity of capsule 00:00: BY MOUTH [place] EVERY DAY Medical Branch VASCEPA 1 2020-0 Yes [id number] TAKE 3 U nivers gram 9-10 CAPSULES ity of capsule 00:00: BY MOUTH [place] EVERY DAY Medical Branch VASCEPA 1 2020-0 Yes [id number] TAKE 3 U nivers gram 9-10 CAPSULES ity of capsule 00:00: BY MOUTH [place] EVERY DAY Medical Branch VASCEPA 1 2020-0 Yes [id number] TAKE 3 U nivers gram 9-10 CAPSULES ity of capsule 00:00: BY MOUTH [place] EVERY DAY Medical Branch VASCEPA 1 2020-0 Yes [id number] TAKE 3 U nivers gram 9-10 CAPSULES ity of capsule 00:00: BY MOUTH [place] [address] EVERY DAY Medical Branch azithromyci 2021-0 No [...] 00:00: mL oral 00 syrup VASCEPA 1 1-0 2023- No [id number] TAKE 3 [facility] gram 9-10 07-03 CAPSULES [...] 00:00: insulin 100 00 unit/mL (3 mL) [facility] pen alogliptin 1-0 No 1mg 25 mg 7-30 tablet 00:00: 00 lisinopril 1-0 No 1mg 5 mg tablet 730 00:00: 00 glimepiride 1-0 No 1mg 4 mg tablet 730 00:00: 00 Diflucan 2021-0 No 1mg 150 mg 7-30 tablet 00:00: 00 amitriptyli 1-0 No 1mg ne 10 mg 7-30 tablet 00:00: 00 gabapentin 2021-0 No 3mg 300 mg 7-30 capsule 00:00: 00 Tresiba 2021-0 No (3 mL) FlexTouch 7-30 U-100 00:00: insulin 100 00 unit/mL (3 mL) [facility] pen alogliptin 1-0 No 1mg 25 [...] 00 nded release icosapent 2020-0 2020- No [id number] 3g Take 3 Univers ethyL 02 09-10 capsules ity of (VASCEPA) 1 00:00: [...] unit/mL (3 mL) subcutaneou s pen gabapentin 2021-0 No 1mg 800 mg 6-01 [...] N ORAL 5-27 mouth. ity of 22:32: [place] [address] Medical Branch multivitami Yes Take by Uni vers n with 5-27 mouth. ity of minerals 22:32: [place] (HAIR,SKIN 10 Medical AND NAILS Branch ORAL) Lactobacill Yes Take by Uni vers us 5-27 mouth. ity of acidophilus 17:32: [place] (PROBIOTIC 10 Medical ORAL) Branch MULTIVITAMI Yes Take by Uni vers N ORAL 5-27 mouth. ity of 17:32: [place] [address] Medical Branch multivitami Yes Take by Uni vers n with 5-27 mouth. ity of minerals 17:32: [place] (HAIR,SKIN 10 Medical AND NAILS Branch ORAL) Lactobacill Yes Take by Uni vers us 5-27 mouth. ity of acidophilus 17:32: [place] (PROBIOTIC 10 Medical ORAL) Branch MULTIVITAMI Yes Take by Uni vers N ORAL 5-27 mouth. ity of 17:32: [place] [address] Medical Branch multivitami Yes Take by Uni vers n with 5-27 mouth. ity of minerals 17:32: [place] (HAIR,SKIN 10 Medical AND NAILS Branch ORAL) Lactobacill Yes Take by Uni vers us 5-27 mouth. ity of acidophilus 17:32: [place] (PROBIOTIC 10 Medical ORAL) Branch MULTIVITAMI Yes Take by Uni vers N ORAL 5-27 mouth. ity of 17:32: [place] [address] Medical Branch multivitami Yes Take by Uni vers n with 5-27 mouth. ity of minerals 17:32: [place] (HAIR,SKIN 10 Medical AND NAILS Branch ORAL) Lactobacill 2020-0 Yes Take by Uni vers us 5-27 mouth. ity of acidophilus 17:32: [place] (PROBIOTIC 10 Medical ORAL) [place] MULTIVITAMI 0 Yes Take by Uni vers N ORAL 5-27 mouth. ity of 17:32: [place] 10 Medical Branch multivitami 0 Yes Take by Uni vers n with 5-27 mouth. ity of minerals 17:32: [place] (HAIR,SKIN 10 Medical AND NAILS Branch ORAL) Lactobacill 0 Yes Take by Uni vers us 5-27 mouth. ity of acidophilus 17:32: [place] (PROBIOTIC 10 Medical ORAL) [place] MULTIVITAMI 0 Yes Take by Uni vers N ORAL 5-27 mouth. ity of 17:32: [place] [address] Medical Branch multivitami 0 Yes Take by Uni vers n with 5-27 mouth. ity of minerals 17:32: [place] (HAIR,SKIN 10 Medical AND NAILS Branch ORAL) Lactobacill 0 Yes Take by Uni vers us 5-27 mouth. ity of acidophilus 17:32: [place] (PROBIOTIC 10 Medical ORAL) [place] MULTIVITAMI Yes Take by Uni vers N ORAL 5-27 mouth. ity of 17:32: [place] [address] Medical [place] multivitami 0 Yes Take by Uni vers n with 5-27 mouth. ity of minerals 17:32: [place] (HAIR,SKIN 10 Medical AND NAILS Branch ORAL) [...] 5-02 tablet by ity of 00:00: mouth [place] (two) Medical times Branch daily with meals. [...] it y of 00:00: 00:00 mouth 2 00 :00 (two) Medical times Branch daily with meals. fenofibrate 2021-0 Yes 134mg Take 1 Uni vers micronized 4-30 capsule by ity of 134 mg 00:00: mouth [place] capsule 00 daily. Medical Branch metFORMIN 0 Yes [id number] 1000mg Take 1 [facility] 1,000 mg 4-30 tablet by ity of tablet 00:00: mouth 2 (two) Medical times Branch daily with meals. blood sugar 2020-0 Yes [id number] Use daily [facility] diagnostic 4-30 Dx E11.65 ity of (ONETOUCH 00:00: [place] VERIO TEST 00 Medical STRIPS) Branch strip lancets 2020-0 Yes [id number] Use daily Univers (ONE TOUCH 4-30 Dx E11.65 ity of DELICA) 33 00:00: [place] [facility] 00 Medical Branch gabapentin 2020-0 Yes [id number] 600mg Take 1 Univers 600 mg 4-30 tablet by ity of tablet 00:00: mouth 2 (two) Medical times Branch daily. lisinopriL 0 Yes [id number] 2.5mg Take 1 [facility] 2.5 mg 4-30 tablet by ity of tablet 00:00: mouth 00 daily. Medical Branch insulin Yes [id number] 35U inject 35 [facility] degludec 4-30 Units ity of (TRESIBA 00:00: [place] FLEXT[place] 00 skin 2 Medical U-100) 100 (two) Branch unit/mL (3 times mL) InPn daily. fenofibrate 0 Yes 134mg Take 1 Uni vers micronized 4-30 capsule by ity of 134 mg 00:00: mouth [place] capsule 00 daily. Medical Branch metFORMIN 0 Yes [id number] 1000mg Take 1 [facility] 1,000 mg 4-30 tablet by ity of tablet 00:00: mouth 2 [place] (two) Medical times Branch daily with meals. blood sugar 2020-0 Yes [id number] Use daily [facility] diagnostic 4-30 Dx E11.65 ity of (ONETOUCH 00:00: [place] VERIO TEST 00 Medical STRIPS) Branch strip lancets 2020-0 Yes [id number] Use daily Univers (ONE TOUCH 4-30 Dx E11.65 ity of DELICA) 33 00:00: [place] gauge Misc 00 Medical Branch lisinopriL Yes [id number] 2.5mg Take 1 [facility] 2.5 mg 4-30 [...] capsule 00 daily. Medical Branch metFORMIN Yes [id number] 1000mg Take 1 [facility] 1,000 mg 4-30 tablet by ity of tablet 00:00: mouth 2 [place] 00 (two) Medical times Branch daily with meals. blood sugar Yes [id number] Use daily [facility] diagnostic 4-30 Dx E11.65 ity of (ONETOUCH 00:00: [place] VERIO TEST 00 Medical STRIPS) Branch strip lancets Yes [id number] Use daily Univers (ONE TOUCH 4-30 Dx E11.65 ity of DELICA) 33 00:00: [place] gauge Misc 00 Medical Branch gabapentin Yes [id number] 600mg Take 1 [facility] 600 mg 4-30 tablet by ity of tablet 00:00: mouth 2 [place] 00 (two) Medical times Branch daily. lisinopriL Yes [id number] 2.5mg Take 1 [facility] 2.5 mg 4-30 tablet by ity of tablet 00:00: mouth [place] 00 daily. Medical Branch insulin Yes [id number] 35U inject 35 [facility] degludec 4-30 Units ity of (TRESIBA 00:00: [place] FLEXT[place] 00 skin 2 Medical U-100) 100 (two) Branch unit/mL (3 times mL) InPn daily. atorvastati Yes 40mg Take 1 Univ ers n 40 mg 4-30 tablet by ity of tablet 00:00: mouth at [place] 00 bedtime. Medical Branch fenofibrate Yes 134mg Take 1 Uni vers micronized 4-30 capsule by ity of 134 mg 00:00: mouth [place] capsule 00 daily. Medical Branch metFORMIN Yes [id number] 1000mg Take 1 [facility] 1,000 mg 4-30 tablet by ity of tablet 00:00: mouth 2 (two) Medical times Branch daily with meals. blood sugar Yes [id number] Use daily [facility] diagnostic 4-30 Dx E11.65 ity of (ONETOUCH 00:00: [place] VERIO TEST 00 Medical STRIPS) Branch strip lancets 0 Yes [id number] Use daily Univers (ONE TOUCH 4-30 Dx E11.65 ity of DELICA) 33 00:00: [place] [facility] Medical Branch gabapentin Yes [id number] 600mg Take 1 [facility] 600 mg 4-30 tablet by ity of tablet 00:00: mouth 2 (two) Medical times Branch daily. lisinopriL Yes [id number] 2.5mg Take 1 [facility] 2.5 mg 4-30 tablet by ity of tablet 00:00: mouth 00 daily. Medical Branch insulin Yes [id number] 35U inject 35 [facility] degludec 4-30 Units ity of (TRESIBA 00:00: under the [facility] s FLEXTOUCH 00 skin 2 Medical U-100) 100 (two) Branch unit/mL (3 times mL) InPn daily. atorvastati Yes 40mg Take 1 Univ ers n 40 mg 4-30 tablet by ity of tablet 00:00: mouth at [place] 00 bedtime. Medical Branch fenofibrate Yes 134mg Take 1 Uni vers micronized 4-30 capsule by ity of 134 mg 00:00: mouth [place] capsule 00 daily. Medical Branch metFORMIN Yes [id number] 1000mg Take 1 Univers 1,000 mg 4-30 tablet by ity of tablet 00:00: mouth 2 [place] (two) Medical times Branch daily with meals. blood sugar Yes [id number] Use daily [facility] diagnostic 4-30 Dx E11.65 ity of (ONETOUCH 00:00: [place] VERIO TEST 00 Medical STRIPS) Branch strip lancets 2020-0 Yes [id number] Use daily Univers (ONE TOUCH 4-30 Dx E11.65 ity of DELICA) 33 00:00: [place] gauge Misc 00 Medical Branch gabapentin 2020-0 Yes [id number] 600mg Take 1 [facility] 600 mg 4-30 tablet by ity of tablet 00:00: mouth 2 (two) Medical times Branch daily. lisinopriL Yes [id number] 2.5mg Take 1 [facility] 2.5 mg 4-30 tablet by ity of tablet 00:00: mouth [place] 00 daily. Medical Branch insulin Yes [id number] 35U inject 35 [facility] degludec 4-30 Units ity of (TRESIBA 00:00: [place] FLEXT[place] 00 skin 2 Medical U-100) 100 (two) Branch unit/mL (3 times mL) InPn daily. atorvastati Yes 40mg Take 1 Univ ers n 40 mg 4-30 tablet by ity of tablet 00:00: mouth at [place] 00 bedtime. Medical Branch fenofibrate Yes 134mg Take 1 Uni vers micronized 4-30 capsule by ity of 134 mg 00:00: mouth [place] capsule 00 daily. Medical Branch metFORMIN Yes [id number] 1000mg Take 1 [facility] 1,000 mg 4-30 tablet by ity of tablet 00:00: mouth 2 [place] 00 (two) Medical times Branch daily with meals. blood sugar Yes [id number] Use daily [facility] diagnostic 4-30 Dx E11.65 ity of (ONETOUCH 00:00: [place] VERIO TEST 00 Medical STRIPS) Branch strip lancets Yes [id number] Use daily [facility] (ONE TOUCH 4-30 Dx E11.65 ity of DELICA) 33 00:00: [place] gauge Misc 00 Medical Branch gabapentin 0 Yes [id number] 600mg Take 1 [facility] 600 mg 4-30 tablet by ity of tablet 00:00: mouth 2 [place] 00 (two) Medical times Branch daily. lisinopriL Yes [id number] 2.5mg Take 1 [facility] 2.5 mg 4-30 tablet by ity of tablet 00:00: mouth [place] 00 daily. Medical Branch insulin Yes [id number] 35U inject 35 [facility] degludec 4-30 Units ity of (TRESIBA 00:00: [place] FLEXTOUCH 00 skin 2 Medical U-100) 100 (two) Branch unit/mL (3 times mL) InPn daily. atorvastati Yes 40mg Take 1 Univ ers n 40 mg 4-30 tablet by ity of tablet 00:00: mouth at [place] 00 bedtime. Medical Branch fenofibrate Yes 134mg Take 1 Uni vers micronized 4-30 capsule by ity of 134 mg 00:00: mouth [place] capsule 00 daily. Medical Branch metFORMIN Yes [id number] 1000mg Take 1 [facility] 1,000 mg 4-30 tablet by ity of tablet 00:00: mouth 2 [place] (two) Medical times Branch daily with meals. blood sugar Yes [id number] Use daily [facility] diagnostic 4-30 Dx E11.65 ity of (ONETOUCH 00:00: [place] VERIO TEST 00 Medical STRIPS) Branch strip lancets Yes [id number] Use daily Univers (ONE TOUCH 4-30 Dx E11.65 ity of DELICA) 33 00:00: [place] gauge Misc 00 Medical Branch gabapentin Yes [id number] 600mg Take 1 [facility] 600 mg 4-30 tablet by ity of tablet 00:00: mouth 2 [place] (two) Medical times Branch daily. lisinopriL Yes [id number] 2.5mg Take 1 [facility] 2.5 mg 4-30 tablet by ity of tablet 00:00: mouth [place] 00 daily. Medical Branch insulin Yes [id number] 35U inject 35 [facility] degludec 4-30 Units ity of (TRESIBA 00:00: [place] FLEXTOUCH 00 skin 2 Medical U-100) 100 (two) Branch unit/mL (3 times mL) InPn daily. atorvastati Yes 40mg Take 1 Univ ers n 40 mg 4-30 tablet by ity of tablet 00:00: mouth at [place] 00 bedtime. Medical Branch fenofibrate Yes 134mg Take 1 Uni vers micronized 4-30 capsule by ity of 134 mg 00:00: mouth [place] capsule 00 daily. Medical Branch metFORMIN Yes [id number] 1000mg Take 1 Univers 1,000 mg 4-30 tablet by ity of tablet 00:00: mouth 2 [place] (two) Medical times Branch daily with meals. blood sugar Yes [id number] Use daily [facility] diagnostic 4-30 Dx E11.65 ity of (ONETOUCH 00:00: [place] VERIO TEST 00 Medical STRIPS) Branch strip lancets Yes [id number] Use daily Univers (ONE TOUCH 4-30 Dx E11.65 ity of DELICA) 33 00:00: [place] [facility] Medical Branch gabapentin Yes [id number] 600mg Take 1 [facility] 600 mg 4-30 tablet by ity of tablet 00:00: mouth 2 (two) Medical times Branch daily. lisinopriL Yes [id number] 2.5mg Take 1 Univers 2.5 mg 4-30 tablet by ity of tablet 00:00: mouth daily. Medical Branch insulin Yes [id number] 35U inject 35 [facility] degludec 4-30 Units ity of (TRESIBA 00:00: under the [facility] s FLEXTOUCH 00 skin 2 Medical U-100) 100 (two) Branch unit/mL (3 times mL) InPn daily. atorvastati Yes 40mg Take 1 Univ ers n 40 mg 4-30 tablet by ity of tablet 00:00: mouth at [place] bedtime. Medical Branch fenofibrate Yes 134mg Take 1 Uni vers micronized 4-30 capsule by ity of 134 mg 00:00: mouth [place] capsule daily. Medical Branch metFORMIN Yes [id number] 1000mg Take 1 [facility] 1,000 mg 4-30 tablet by ity of tablet 00:00: mouth (two) Medical times Branch daily with meals. blood sugar Yes [id number] Use daily [facility] diagnostic 4-30 Dx E11.65 ity of (ONETOUCH 00:00: [place] VERIO TEST Medical STRIPS) Branch strip lancets Yes [id number] Use daily Univers (ONE TOUCH 4-30 Dx E11.65 ity of DELICA) 33 00:00: [place] [facility] Medical Branch gabapentin Yes [id number] 600mg Take 1 [facility] 600 mg 4-30 tablet by ity of tablet 00:00: mouth 2 (two) Medical times Branch daily. lisinopriL Yes [id number] 2.5mg Take 1 Univers 2.5 mg 4-30 tablet by ity of tablet 00:00: mouth 00 daily. Medical Branch fenofibrate 2021-0 Yes 134mg Take 1 Uni vers micronized 4-30 capsule by ity of 134 mg 00:00: mouth [place] capsule 00 daily. Medical Branch metFORMIN 2020-0 Yes [id number] 1000mg Take 1 [facility] 1,000 mg 4-30 tablet by ity of tablet 00:00: mouth 2 (two) Medical times Branch daily with meals. blood sugar 2020-0 Yes [id number] Use daily [facility] diagnostic 4-30 Dx E11.65 ity of (ONETOUCH 00:00: [place] VERIO TEST 00 Medical STRIPS) Branch strip lancets 2020-0 Yes [id number] Use daily Univers (ONE TOUCH 4-30 Dx E11.65 ity of DELICA) 33 00:00: [place] [facility] Medical Branch gabapentin 2020-0 Yes [id number] 600mg Take 1 [facility] 600 mg 4-30 tablet by ity of tablet 00:00: mouth 2 (two) Medical times Branch daily. lisinopriL 0 Yes [id number] 2.5mg Take 1 Univers 2.5 mg 4-30 tablet by ity of tablet 00:00: mouth [place] 00 daily. Medical Branch fenofibrate 0 Yes 134mg Take 1 Uni vers micronized 4-30 capsule by ity of 134 mg 00:00: mouth [place] capsule 00 daily. Medical Branch metFORMIN 0 Yes [id number] 1000mg Take 1 [facility] 1,000 mg 4-30 tablet by ity of tablet 00:00: mouth 2 (two) Medical times Branch daily with meals. blood sugar 0 Yes [id number] Use daily [facility] diagnostic 4-30 Dx E11.65 ity of (ONETOUCH 00:00: [place] VERIO TEST 00 Medical STRIPS) Branch strip lancets 2020-0 Yes [id number] Use daily Univers (ONE TOUCH 4-30 Dx E11.65 ity of DELICA) 33 00:00: [place] [facility] Medical Branch gabapentin 2020-0 Yes [id number] 600mg Take 1 [facility] 600 mg 4-30 tablet by ity of tablet 00:00: mouth 2 [place] 00 (two) Medical times Branch daily. lisinopriL 2020-0 Yes [id number] 2.5mg Take 1 [facility] 2.5 mg 4-30 tablet by ity of tablet 00:00: mouth [place] 00 daily. Medical Branch gabapentin 2022- No [id number] 600mg Take 1 [facility] 600 mg 11-07-03 tablet by ity of tablet 00:00: 00:00 mouth 2 [place] 00 :00 (two) Medical times Branch daily. insulin 2022- No [id number] 35U inject 35 [facility] degludec 30 02-20 Units ity of (TRESIBA 00:00: 00:00 under the [place] as FLEXTOUCH 00 :00 skin 2 Medical U-100) 100 (two) Branch unit/mL (3 times mL) InPn daily. atorvastati 2022- No 40mg Take 1 Uni vers n 40 mg 11-07-20 tablet by ity of tablet 00:00: 00:00 [...] 2 mg tablet 318 00:00: 00 metformin 2021-0 No 1mg 1,000 [...] 1mg 1,000 mg 3-18 tablet 00:00: 00 metformin 1-0 No 1mg [...] thiazide 25 3-16 mg tablet 00:00: 00 fluconazole 2021-0 No mg [...] 100 mg 1-28 capsule 00:00: 00 fluconazole 2020-0 No mg 150 mg 1-28 tablet 00:00: [...] 600 mg 0-13 tablet 00:00: 00 hydrochloro 2019-0 No 1mg thiazide 25 8-31 mg tablet 00:00: 00 lisinopril 2019-0 No 1mg 5 mg tablet 8-31 00:00: 00 hydrochloro 2020-0 No 1mg thiazide 25 8-31 mg tablet 00:00: 00 lisinopril 2020-0 No 1mg 5 mg tablet 03-10 00:00: 00 metformin 2020-0 No 1mg 1,000 mg - tablet 00:00: 00 glimepiride 2020-0 No 1mg 1 mg tablet 03-10 00:00: 00 metformin 2020-0 No 1mg 1,000 mg 8- tablet 00:00: 00 glimepiride 2020-0 No 1mg 1 mg tablet 03-10 00:00: 00 atorvastati 2020-0 No 1mg n 40 mg 8- tablet 00:00: 00 atorvastati 2020-0 No 1mg n 40 mg - tablet 00:00: 00 gabapentin 2020-0 No 1mg 600 mg 03-10 tablet 00:00: 00 gabapentin 2020-0 No 1mg 600 mg 03-10 tablet 00:00: 00 Xenical 120 2020-0 No [...] 00 metformin 2020-0 No 1mg 1,000 mg - tablet 00:00: 00 lisinopril 2020-0 No 1mg 5 mg tablet 03-10 00:00: 00 hydrochloro 2020-0 No 1mg thiazide 25 8-31 mg tablet 00:00: 00 lisinopril 2020-0 No 1mg 5 mg tablet 03-10 00:00: 00 metformin 2020-0 No 1mg 1,000 mg - tablet 00:00: 00 glimepiride 2020-0 No 1mg 1 mg tablet 03-10 00:00: 00 metformin 2020-0 No 1mg 1,000 mg - tablet 00:00: 00 glimepiride 2020-0 No 1mg 1 mg tablet 03-10 00:00: 00 atorvastati 2020-0 No 1mg n 40 mg 8-31 tablet 00:00: 00 atorvastati 2020-0 No 1mg n 40 mg 8-31 tablet 00:00: 00 gabapentin 2020-0 No 1mg 600 mg 8-31 tablet 00:00: 00 glimepiride 2020-0 No 1mg 1 mg tablet 8 00:00: 00 gabapentin 2020-0 No 1mg 600 [...] 00 gabapentin 2020-0 No 1mg 600 mg - tablet 00:00: 00 Xenical 120 2020-0 No [...] by Met hodi SUNNY/FA/GUAR 5-14 mouth. [facility] 11:53: Hospita (ONE-A-DAY 29 l WOMEN'S ACTIVE ORAL) MV,CA,MIN/I 2020-0 Yes Take by Met hodi SUNNY/FA/GUAR 5-14 mouth. [facility] 11:53: Hospita (ONE-A-DAY 29 l WOMEN'S ACTIVE ORAL) MV,CA,MIN/I 2020-0 Yes Take by Met hodi SUNNY/FA/GUAR 5-14 mouth. [facility] 11:53: Hospita (ONE-A-DAY 29 l WOMEN'S ACTIVE ORAL) MV,CA,MIN/I 2020-0 Yes Take by Met hodi SUNNY/FA/GUAR 5-14 mouth. [facility] 11:53: Hospita (ONE-A-DAY 29 l WOMEN'S ACTIVE ORAL) MV,CA,MIN/I 2020-0 Yes Take by Met hodi SUNNY/FA/GUAR 5-14 mouth. [facility] 11:53: Hospita (ONE-A-DAY 29 l WOMEN'S ACTIVE ORAL) MV,CA,MIN/I 2020-0 Yes Take by Met hodi SUNNY/FA/GUAR 5-14 mouth. [facility] 11:53: Hospita (ONE-A-DAY 29 l WOMEN'S ACTIVE ORAL) MV,CA,MIN/I 2020-0 Yes Take by Met hodi SUNNY/FA/GUAR 5-14 mouth. [facility] 11:53: Hospita (ONE-A-DAY 29 l WOMEN'S ACTIVE ORAL) MV,CA,MIN/I 2020-0 Yes Take by Met hodi SUNNY/FA/GUAR 5-14 mouth. [facility] 11:53: Hospita (ONE-A-DAY 29 l WOMEN'S ACTIVE ORAL) MV,CA,MIN/I 2020-0 Yes Take by Met hodi SUNNY/FA/GUAR 5-14 mouth. [facility] 11:53: Hospita (ONE-A-DAY 29 l WOMEN'S ACTIVE ORAL) MV,CA,MIN/I 2020-0 Yes Take by Met hodi SUNNY/FA/GUAR 5-14 mouth. [facility] 11:53: Hospita (ONE-A-DAY 29 l WOMEN'S ACTIVE ORAL) MV,CA,MIN/I 2020-0 Yes Take by Met hodi SUNNY/FA/GUAR 5-14 mouth. [facility] 11:53: Hospita (ONE-A-DAY 29 l WOMEN'S ACTIVE ORAL) MV,CA,MIN/I 2020-0 Yes Take by Met hodi SUNNY/FA/GUAR 5-14 mouth. [facility] 11:53: Hospita (ONE-A-DAY 29 l WOMEN'S ACTIVE ORAL) MV,CA,MIN/I 2020-0 Yes Take by Met hodi SUNNY/FA/GUAR 5-14 mouth. [facility] 11:53: Hospita (ONE-A-DAY 29 l WOMEN'S ACTIVE ORAL) MV,CA,MIN/I 2020-0 Yes Take by Met hodi SUNNY/FA/GUAR 5-14 mouth. [facility] 11:53: Hospita (ONE-A-DAY 29 l WOMEN'S ACTIVE ORAL) MV,CA,MIN/I 2020-0 Yes Take by Met hodi SUNNY/FA/GUAR 5-14 mouth. [facility] 11:53: Hospita (ONE-A-DAY 29 l WOMEN'S ACTIVE ORAL) MV,CA,MIN/I 2020-0 Yes Take by Met hodi SUNNY/FA/GUAR 5-14 mouth. [facility] 11:53: Hospita (ONE-A-DAY 29 l WOMEN'S [...] tablet 5-12 00:00: 00 nystatin-tr 2020-0 Yes [id number] Q.25D Apply Methodi iamcinolone 4-[address] (MYCOLOG 00:00: 4 (four) Hospi ta II) 00 times a l 100,000-0.1 day as unit/g-% needed cream (vaginal itching or infection) . To outer vagina nystatin-tr 2020-0 Yes [id number] Q.25D Apply Methodi iamcinolone 4-[address] (MYCOLOG 00:00: 4 (four) Hospi ta II) 00 times a l 100,000-0.1 day as unit/g-% needed cream (vaginal itching or infection) . To outer vagina nystatin-tr 2020-0 Yes [id number] Q.25D Apply Methodi iamcinolone 4-[address] (MYCOLOG 00:00: 4 (four) Hospi ta II) 00 times a l 100,000-0.1 day as unit/g-% needed cream (vaginal itching or infection) . To outer vagina nystatin-tr 2020-0 Yes [id number] Q.25D Apply Methodi iamcinolone 4-[address] (MYCOLOG 00:00: 4 (four) Hospi ta II) 00 times a l 100,000-0.1 day as unit/g-% needed cream (vaginal itching or infection) . To outer vagina nystatin-tr 2020-0 Yes [id number] Q.25D Apply Methodi iamcinolone 4-[address] (MYCOLOG 00:00: 4 (four) Hospi ta II) 00 times a l 100,000-0.1 day as unit/g-% needed cream (vaginal itching or infection) . To outer vagina nystatin-tr 2020-0 Yes [id number] Q.25D Apply Methodi iamcinolone 4-[address] (MYCOLOG 00:00: 4 (four) Hospi ta II) 00 times a l 100,000-0.1 day as unit/g-% needed cream (vaginal itching or infection) . To outer vagina nystatin-tr 2020-0 Yes [id number] Q.25D Apply Methodi iamcinolone 4-[address] (MYCOLOG 00:00: 4 (four) Hospi ta II) 00 times a l 100,000-0.1 day as unit/g-% needed cream (vaginal itching or infection) . To outer vagina nystatin-tr 2020-0 Yes [id number] Q.25D Apply Methodi iamcinolone 4-[address] (MYCOLOG 00:00: 4 (four) Hospi ta II) 00 times a l 100,000-0.1 day as unit/g-% needed cream (vaginal itching or infection) . To outer vagina nystatin-tr 2020-0 Yes [id number] Q.25D Apply Methodi iamcinolone 4-[address] (MYCOLOG 00:00: 4 (four) Hospi ta II) 00 times a l 100,000-0.1 day as unit/g-% needed cream (vaginal itching or infection) . To outer vagina nystatin-tr 2020-0 Yes [id number] Q.25D Apply Methodi iamcinolone 4-[address] (MYCOLOG 00:00: 4 (four) Hospi ta II) 00 times a l 100,000-0.1 day as unit/g-% needed cream (vaginal itching or infection) . To outer vagina nystatin-tr 2020-0 Yes [id number] Q.25D Apply Methodi iamcinolone 4-[address] (MYCOLOG 00:00: 4 (four) Hospi ta II) 00 times a l 100,000-0.1 day as unit/g-% needed cream (vaginal itching or infection) . To outer vagina nystatin-tr 2020-0 Yes [id number] Q.25D Apply Methodi iamcinolone 4-[address] (MYCOLOG 00:00: 4 (four) Hospi ta II) 00 times a l 100,000-0.1 day as unit/g-% needed cream (vaginal itching or infection) . To outer vagina nystatin-tr 2020-0 Yes [id number] Q.25D Apply Methodi iamcinolone 4-[address] (MYCOLOG 00:00: 4 (four) Hospi ta II) 00 times a l 100,000-0.1 day as unit/g-% needed cream (vaginal itching or infection) . To outer vagina nystatin-tr 2020-0 Yes [id number] Q.25D Apply Methodi iamcinolone 4-[address] (MYCOLOG 00:00: 4 (four) Hospi ta II) 00 times a l 100,000-0.1 day as unit/g-% needed cream (vaginal itching or infection) . To outer vagina nystatin-tr 2020-0 Yes [id number] Q.25D Apply Methodi iamcinolone 4-[address] (MYCOLOG 00:00: 4 (four) Hospi ta II) 00 times a l 100,000-0.1 day as unit/g-% needed cream (vaginal itching or infection) . To outer vagina nystatin-tr 2020-0 Yes [id number] Q.25D Apply Methodi iamcinolone 4-[address] (MYCOLOG 00:00: 4 (four) Hospi ta II) 00 times a l 100,000-0.1 day as unit/g-% needed cream (vaginal itching or infection) . To outer vagina nystatin-tr 2020-0 Yes [id number] Q.25D Apply Methodi iamcinolone 4-[address] (MYCOLOG 00:00: 4 (four) Hospi ta II) 00 times a l 100,000-0.1 day as unit/g-% needed cream (vaginal itching or infection) . To outer vagina nystatin-tr 2020-0 Yes [id number] Q.25D Apply Methodi iamcinolone 4-[address] (MYCOLOG 00:00: 4 (four) Hospi ta II) 00 times a l 100,000-0.1 day as unit/g-% needed cream (vaginal itching or infection) . To outer vagina nystatin-tr 2020-0 Yes [id number] Q.25D Apply Methodi iamcinolone 4-[address] [...] subcutaneou s pen injector HEParin 2020-0 Yes [id number] Q7D Meth ally (porcine) 3- st injection 17:00: Hospita 20,000 00 l Units HEParin 2020-0 Yes [id number] Q7D Meth laly (porcine) 3-24 st injection 17:00: Hospita 20,000 00 l Units HEParin 2020-0 Yes [id number] Q7D Meth ally (porcine) 3-24 st injection 17:00: Hospita 20,000 00 l Units HEParin 2020-0 Yes [id number] Q7D Meth ally (porcine) 3-24 st injection 17:00: Hospita 20,000 00 l Units HEParin 2020-0 Yes [id number] Q7D Meth ally (porcine) 3-24 st injection 17:00: Hospita 20,000 00 l Units HEParin 2020-0 Yes [id number] Q7D Meth ally (porcine) 3-24 st injection 17:00: Hospita 20,000 00 l Units HEParin 2020-0 Yes [id number] Q7D Meth ally (porcine) 3-24 st injection 17:00: [facility] 20,000 00 l Units HEParin 2020-0 Yes [id number] Q7D Meth ally (porcine) 3-24 st injection 17:00: [facility]ospita 20,000 00 l Units HEParin 2020-0 Yes [id number] Q7D Meth ally (porcine) 3-24 st injection 17:00: Hospita 20,000 00 l Units HEParin 2020-0 Yes [id number] Q7D Meth ally (porcine) 3-24 st injection 17:00: Hospita 20,000 00 l Units HEParin 2020-0 Yes [id number] Q7D Meth ally (porcine) 3-24 st injection 17:00: [facility]ospita 20,000 00 l Units HEParin 2020-0 Yes [id number] Q7D Meth ally (porcine) 3-24 st injection 17:00: Hospita 20,000 00 l Units HEParin 2020-0 Yes [id number] Q7D Meth ally (porcine) 3-24 st injection 17:00: Hospita 20,000 00 l Units HEParin 2020-0 Yes [id number] Q7D Meth ally (porcine) 3-24 st injection 17:00: Hospita 20,000 00 l Units HEParin 2020-0 Yes [id number] Q7D Meth ally (porcine) 3-24 st injection 17:00: Hospita 20,000 00 l Units HEParin 2020-0 Yes [id number] Q7D Meth ally (porcine) 3-24 st injection 17:00: Hospita 20,000 00 l Units HEParin 2020-0 Yes [id number] Q7D Meth ally (porcine) 3-24 st injection 17:00: Hospita 20,000 00 l Units HEParin 2020-0 Yes [id number] Q7D Meth ally (porcine) 3-24 st injection 17:00: Hospita 20,000 00 l Units HEParin 2020-0 Yes [id number] Q7D Meth ally (porcine) 3-24 st injection 17:00: Hospita 20,000 00 l Units conjugated 2020-0 Yes [id number] Apply 0.5 [facility] estrogens 3-[address] (Premarin) 00:00: vaginally [facility] spita 0.625 00 either l mg/gram internally vaginal (applicato cream r) or with finger to outer vagina twice weekly at night conjugated 2020-0 Yes [id number] Apply 0.5 [facility] estrogens 3-[address] (Premarin) 00:00: vaginally [facility] 0.625 00 either l mg/gram internally vaginal (applicato cream r) or with finger to outer vagina twice weekly at night conjugated 2020-0 Yes [id number] Apply 0.5 [facility] estrogens 3-[address] (Premarin) 00:00: vaginally [facility] 0.625 00 either l mg/gram internally vaginal (applicato cream r) or with finger to outer vagina twice weekly at night conjugated 2020-0 Yes [id number] Apply 0.5 [facility] estrogens 3-[address] (Premarin) 00:00: vaginally [facility] 0.625 00 either l mg/gram internally vaginal (applicato cream r) or with finger to outer vagina twice weekly at night conjugated 2020-0 Yes [id number] Apply 0.5 [facility] estrogens 3-[address] (Premarin) 00:00: vaginally [facility] 0.625 00 either l mg/gram internally vaginal (applicato cream r) or with finger to outer vagina twice weekly at night conjugated 2020-0 Yes [id number] Apply 0.5 [facility] estrogens 3-[address] (Premarin) 00:00: vaginally [facility] 0.625 00 either l mg/gram internally vaginal (applicato cream r) or with finger to outer vagina twice weekly at night conjugated 2020-0 Yes [id number] Apply 0.5 [facility] estrogens 3-[address] (Premarin) 00:00: vaginally [facility] 0.625 00 either l mg/gram internally vaginal (applicato cream r) or with finger to outer vagina twice weekly at night conjugated 2020-0 Yes [id number] Apply 0.5 [facility] estrogens 3-[address] (Premarin) 00:00: vaginally [facility] 0.625 00 either l mg/gram internally vaginal (applicato cream r) or with finger to outer vagina twice weekly at night conjugated 2020-0 Yes [id number] Apply 0.5 [facility] estrogens 3-[address] (Premarin) 00:00: vaginally [facility] 0.625 00 either l mg/gram internally vaginal (applicato cream r) or with finger to outer vagina twice weekly at night conjugated 2020-0 Yes [id number] Apply 0.5 [facility] estrogens 3-[address] (Premarin) 00:00: vaginally [facility] 0.625 00 either l mg/gram internally vaginal (applicato cream r) or with finger to outer vagina twice weekly at night conjugated 2020-0 Yes [id number] Apply 0.5 [facility] estrogens 3-[address] (Premarin) 00:00: vaginally [facility] 0.625 00 either l mg/gram internally vaginal (applicato cream r) or with finger to outer vagina twice weekly at night conjugated 2020-0 Yes [id number] Apply 0.5 [facility] estrogens 3-[address] (Premarin) 00:00: vaginally [facility] 0.625 00 either l mg/gram internally vaginal (applicato cream r) or with finger to outer vagina twice weekly at night conjugated 2020-0 Yes [id number] Apply 0.5 [facility] estrogens 3-[address] (Premarin) 00:00: vaginally [facility] 0.625 00 either l mg/gram internally vaginal (applicato cream r) or with finger to outer vagina twice weekly at night conjugated 2020-0 Yes [id number] Apply 0.5 [facility] estrogens 3-[address] (Premarin) 00:00: vaginally [facility] 0.625 00 either l mg/gram internally vaginal (applicato cream r) or with finger to outer vagina twice weekly at night conjugated 2020-0 Yes [id number] Apply 0.5 [facility] estrogens 3-[address] (Premarin) 00:00: vaginally [facility] 0.625 00 either l mg/gram internally vaginal (applicato cream r) or with finger to outer vagina twice weekly at night conjugated 2020-0 Yes [id number] Apply 0.5 [facility] estrogens 3-[address] (Premarin) 00:00: vaginally [facility] 0.625 00 either l mg/gram internally vaginal (applicato cream r) or with finger to outer vagina twice weekly at night conjugated 2020-0 Yes [id number] Apply 0.5 [facility] estrogens 3-[address] (Premarin) 00:00: vaginally [facility] 0.625 00 either l mg/gram internally vaginal (applicato cream r) or with finger to outer vagina twice weekly at night conjugated 2020-0 Yes [id number] Apply 0.5 [facility] estrogens 3-[address] (Premarin) 00:00: vaginally [facility] sp[facility] 0.625 00 either l mg/gram internally vaginal (applicato cream r) or with finger to outer vagina twice weekly at night conjugated 2020-0 Yes [id number] Apply 0.5 [facility] estrogens 3-[address] (Premarin) 00:00: vaginally [facility] 0.625 00 either l mg/gram internally vaginal (applicato cream r) or with finger to outer vagina twice weekly at night amb custom 2019-0 Yes Compouned Me thodi [...] daily. amb custom 2020-0 Yes Comp[facility] Me cariasodi compound 3- vaginal st 00:00: cream: 6% Hospita 00 gabapentin l , 2% Lidocaine, 2 % baclofen in water washable based. Apply 0.5 gram to outer vagina once or twice daily. amb custom 2020-0 Yes Compouned Pr arethaodi compound [address] 00:00: cream: 6% Hospita 00 gabapentin l , 2% Lidocaine, 2 % baclofen in water washable based. Apply 0.5 gram to outer vagina once or twice daily. amb custom 2020-0 Yes Comp[facility]ed Me cariasodi compound 09-[address] 00:00: cream: 6% Hospita 00 gabapentin l , 2% Lidocaine, 2 % baclofen in water washable based. Apply 0.5 gram to outer vagina once or twice daily. amb custom 2020-0 Yes Comp[facility]ed Pr arethaodi compound 09-[address] 00:00: cream: 6% Hospita 00 gabapentin l , 2% Lidocaine, 2 % baclofen in water washable based. Apply 0.5 gram to outer vagina once or twice daily. amb custom 2020-0 Yes Comp[facility]ed Me cariasodi compound 09-[address] 00:00: cream: 6% Hospita 00 gabapentin l , 2% Lidocaine, 2 % baclofen in water washable based. Apply 0.5 gram to outer vagina once or twice daily. amb custom 2020-0 Yes Compouned Pr arethaodi compound 09-[address] 00:00: cream: 6% Hospita 00 gabapentin l , 2% Lidocaine, 2 % baclofen in water washable based. Apply 0.5 gram to outer vagina once or twice daily. amb custom 2020-0 Yes Comp[facility]ed Me cariasodi compound 3- vaginal st 00:00: cream: 6% Hospita 00 gabapentin l , 2% Lidocaine, 2 % baclofen in water washable based. Apply 0.5 gram to outer vagina once or twice daily. amb custom 2020-0 Yes [facility]ed Pr arethaodi compound [address] 00:00: cream: [...] once or twice daily. FREESTYLE 2020-0 Yes [id number] 1{each} 1 Each [facility] BRENDA 14 3-03 every 14 ity of DAY SENSOR 00:00: (fourteen[place] [facility] days. [facility] FREESTYLE 2020-0 Yes [id number] 1{each} 1 Each [facility] BRENDA 14 3-03 daily. ity of DAY READER 00:00: [facility] 00 Medical Branch FREESTYLE 2020-0 Yes [id number] 1{each} 1 Each [facility] BRENDA 14 3-03 every 14 ity of DAY SENSOR 00:00: (fourteen) [place] Kit 00 days. [facility] FREESTYLE 2020-0 Yes [id number] 1{each} 1 Each [facility] BREDNA 14 3-03 daily. ity of DAY READER 00:00: [facility] 00 Medical Branch FREESTYLE 2020-0 Yes [id number] 1{each} 1 Each [facility] BRENDA 14 3-03 every 14 ity of DAY SENSOR 00:00: (fourteen) [place] Kit 00 days. [facility] FREESTYLE 2020-0 Yes [id number] 1{each} 1 Each [facility] BRENDA 14 3-03 daily. ity of DAY READER 00:00: [facility] 00 Medical Branch FREESTYLE 2020-0 Yes [id number] 1{each} 1 Each [facility] BRENDA 14 3-03 every 14 ity of DAY SENSOR 00:00: (fourteen) [place] Kit 00 days. [facility] FREESTYLE 2020-0 Yes [id number] 1{each} 1 Each [facility] BRENDA 14 3-03 daily. ity of DAY READER 00:00: [facility] 00 Medical Branch FREESTYLE 2020-0 Yes [id number] 1{each} 1 Each [facility] BRENDA 14 3-03 every 14 ity of DAY SENSOR 00:00: (fourteen) [place] 00 days. [facility] FREESTYLE 2020-0 Yes [id number] 1{each} 1 Each [facility] BRENDA 14 3-03 daily. ity of DAY READER 00:00: [place] [facility] 00 Medical Branch FREESTYLE 2020-0 Yes [id number] 1{each} 1 Each [facility] BRENDA 14 3-03 every 14 ity of DAY SENSOR 00:00: (fourteen) [place] Kit 00 days. Medical Branch FREESTYLE 2020-0 Yes [id number] 1{each} 1 Each [facility] BRENDA 14 3-03 daily. ity of DAY READER 00:00: [facility] 00 Medical Branch FREESTYLE 2020-0 Yes [id number] 1{each} 1 Each [facility] BRENDA 14 3-03 every 14 ity of DAY SENSOR 00:00: (fourteen) [place] Kit 00 days. [facility] FREESTYLE 2020-0 Yes [id number] 1{each} 1 Each [facility] BRENDA 14 3-03 daily. ity of DAY READER 00:00: [facility] 00 Medical Branch FREESTYLE 2020-0 Yes [id number] 1{each} 1 Each [facility] BRENDA 14 3-03 every 14 ity of DAY SENSOR 00:00: (fourteen) [place] Kit 00 days. [facility] Branch FREESTYLE 2020-0 Yes [id number] 1{each} 1 Each [facility] BRENDA 14 3-03 daily. ity of DAY READER 00:00: [facility] 00 Medical Branch FREESTYLE 2020-0 Yes [id number] 1{each} 1 Each [facility] BRENDA 14 3-03 every 14 ity of DAY SENSOR 00:00: (fourteen) [place] Kit 00 days. Medical Branch FREESTYLE 2020-0 Yes [id number] 1{each} 1 Each [facility] BRENDA 14 3-03 daily. ity of DAY READER 00:00: [facility] 00 Medical Branch FREESTYLE 2020-0 Yes [id number] 1{each} 1 Each [facility] BRENDA 14 3-03 every 14 ity of DAY SENSOR 00:00: (fourteen) [place] Kit 00 days. Medical Branch FREESTYLE 2020-0 Yes [id number] 1{each} 1 Each [facility] BRENDA 14 3-03 daily. ity of DAY READER 00:00: [facility] 00 Medical Branch FREESTYLE 2020-0 Yes [id number] 1{each} 1 Each [facility] BRENDA 14 3-03 every 14 ity of DAY SENSOR 00:00: (fourteen) [place] Kit 00 days. Medical Branch FREESTYLE 2020-0 Yes [id number] 1{each} 1 Each [facility] BRENDA 14 3-03 daily. ity of DAY READER 00:00: [facility] 00 Medical Branch Ozempic 2020-0 [...] mg tablet 2-30 00:00: 00 Flagyl 500 2019-1 No 1mg mg tablet 2-30 00:00: 00 Flagyl 500 2018-1 No 1mg mg tablet 2-30 00:00: 00 Flagyl 500 2018-1 No 1mg mg tablet 2-30 00:00: 00 Flagyl 500 2018-1 No 1mg mg tablet 2-30 00:00: 00 Flagyl 500 2018-1 No 1mg mg tablet 2- 00:00: 00 Flagyl 500 2018-1 No 1mg mg tablet 2-30 00:00: 00 Flagyl 500 2018-07 No 1mg mg tablet 2-30 00:00: 00 Flagyl 500 2018-07 No 1mg mg tablet 2-30 00:00: 00 Flagyl 500 2018-07 No 1mg mg tablet 2-30 00:00: 00 Flagyl 500 2018-07 No 1mg mg tablet 2-30 00:00: 00 traMADol 2018-07 Yes [id number] 50mg Take 1 Uni vers (ULTRAM) 50 2-28 tablet by ity of mg tablet 00:00: mouth [place] 00 every 6 Medical (six) Branch hours as needed for Pain (scale 7-10). ondansetron 2018-07 Yes [id number] 4mg Take 1 Univers (ZOFRAN) 4 2-28 tablet by ity of mg tablet 00:00: mouth [place] 00 every 8 Medical (eight) Branch hours as needed for Nausea and Vomiting (N/V). ondansetron 2018-07 Yes [id number] 4mg Take 1 Univers (ZOFRAN) 4 2-28 tablet by ity of mg tablet 00:00: mouth [place] 00 every 8 Medical (eight) Branch hours as needed for Nausea and Vomiting (N/V). ondansetron 2018-07 Yes [id number] 4mg Take 1 Univers (ZOFRAN) 4 2-28 tablet by ity of mg tablet 00:00: mouth [place] 00 every 8 Medical (eight) Branch hours as needed for Nausea and Vomiting (N/V). ondansetron 2018-07 Yes [id number] 4mg Take 1 Univers (ZOFRAN) 4 2-28 tablet by ity of mg tablet 00:00: mouth [place] 00 every 8 Medical (eight) Branch hours as needed for Nausea and Vomiting (N/V). ondansetron 2018-07 Yes [id number] 4mg Take 1 Univers (ZOFRAN) 4 2-28 tablet by ity of mg tablet 00:00: mouth [place] 00 every 8 Medical (eight) Branch hours as needed for Nausea and Vomiting (N/V). ondansetron 2018-07 Yes [id number] 4mg Take 1 Univers (ZOFRAN) 4 2-28 tablet by ity of mg tablet 00:00: mouth [place] 00 every 8 Medical (eight) Branch hours as needed for Nausea and Vomiting (N/V). ondansetron 2018-07 Yes [id number] 4mg Take 1 Univers (ZOFRAN) 4 2-28 tablet by ity of mg tablet 00:00: mouth [place] 00 every 8 Medical (eight) Branch hours as needed for Nausea and Vomiting (N/V). ondansetron 2018-07- No [id number] 4mg Take 1 Univers (ZOFRAN) 4 2-28 02-16 tablet by ity of mg tablet 00:00: 00:00 mouth [place] 00 :00 every 8 Medical (eight) Branch hours as needed for Nausea and Vomiting (N/V). traMADol 2018-07- No [id number] 50mg Take 1 [facility] (ULTRAM) 50 2-28 11-20 tablet by it y of mg tablet 00:00: 00:00 mouth [place] 00 :00 every 6 Medical (six) Branch hours as needed for Pain (scale 7-10). ibuprofen 2018-07 No 1mg 800 mg 2-19 tablet 00:00: [facility] No 1mg mg-90 mg 2-19 tablet,exte [...] 00 metformin 2019-0 No 1mg 1,000 mg 25 tablet 00:00: 00 lisinopril 2019-0 No 1mg [...] mg capsule 00:00: 00 hydrOXYzine 2019-0 Yes [id number] 10mg Take 1 Univers 10 mg 9-13 tablet by ity of tablet 00:00: mouth [place] 00 every 6 Medical (six) Branch hours. hydrOXYzine 2019-0 Yes [id number] 10mg Take 1 Univers 10 mg 9-13 tablet by ity of tablet 00:00: mouth [place] 00 every 6 Medical (six) Branch hours. hydrOXYzine 2019-0 Yes [id number] 10mg Take 1 Univers 10 mg 9-13 tablet by ity of tablet 00:00: mouth [place] 00 every 6 Medical (six) Branch hours. hydrOXYzine 2019-0 Yes [id number] 10mg Take 1 Univers 10 mg 9-13 tablet by ity of tablet 00:00: mouth [place] 00 every 6 Medical (six) Branch hours. hydrOXYzine 2019-0 Yes [id number] 10mg Take 1 Univers 10 mg 9-13 tablet by ity of tablet 00:00: mouth [place] 00 every 6 Medical (six) Branch hours. hydrOXYzine 2019-0 Yes [id number] 10mg Take 1 Univers 10 mg 9-13 tablet by ity of tablet 00:00: mouth [place] 00 every 6 Medical (six) Branch hours. hydrOXYzine 2019-0 Yes [id number] 10mg Take 1 Univers 10 mg 9-13 tablet by ity of tablet 00:00: mouth [place] 00 every 6 Medical (six) Branch hours. hydrOXYzine 2019-0 2023- No [id number] 10mg Take 1 Univers 10 mg 9-13 [...] No 1mg tablet 08-08 00:00: 00 metformin 2017- No 1mg 1,000 mg 1-13 tablet 00:00: 00 metformin 2017- No 1mg 1,000 mg 1-13 tablet 00:00: 00 metformin 2017- No 1mg 1,000 mg 1-13 tablet 00:00: 00 metformin 2017- No 1mg 1,000 mg 1-13 tablet 00:00: 00 metformin 2018- No 1mg 1,000 mg 1-13 tablet 00:00: 00 metformin 2018- No 1mg 1,000 mg 1-13 tablet 00:00: 00 metformin 2018- No 1mg 1,000 mg 1-13 tablet 00:00: 00 metformin 2018- No 1mg 1,000 mg 1-13 tablet 00:00: 00 metformin 2018- No 1mg 1,000 mg 1-13 tablet 00:00: 00 metformin 2018- No 1mg 1,000 mg 1-13 tablet 00:00: 00 metformin 2018- No 1mg 1,000 mg 1-13 tablet 00:00: 00 Lexapro 20 2017-0 No 1mg mg tablet 04-06 00:00: 00 [...] 12mg 100 mg -27 tablet 00:00: 00 Effexor XR 2018-0 No [...] 1mg 875 mg - tablet 00:00: 00 loratadine 2018-0 Yes 10mg [...] 1mg mg tablet 07-18 00:00: 00 promethazin 2016-07 No 10mg/5 e-DM [...] 2mg 100 mg -28 tablet 00:00: 00 buspirone 2017-0 No 1mg [...] mg tablet 03-24 00:00: 00 Abilify 5 2016-0 No 1mg [...] Abilify 5 2016-0 No 1mg mg tablet 411 00:00: 00 Lexapro 20 2017-0 No 15mg mg tablet 4- 00:00: 00 trazodone 2017-0 No 1mg 150 mg - tablet 00:00: 00 Carvedilol 2016-0 2022- No [id number] 6.25mg Take 1 Andreea 6.25 MG 4-09-07 tablet by Seybol d oral Tab 00:00: 00:00 mouth 2 - 00 :00 times Externa daily l (with meals) MethIMAzole 2016-2022- No [id number] 10mg Take 1 Andreea 10 MG oral [...] Abilify 5 2016-0 No 1mg mg tablet 3- 00:00: 00 [...] 1mg mg tablet 2-08 00:00: 00 trazodone 2015- No 1mg 150 mg 2-08 tablet 00:00: [...] Lexapro 20 2015-07 No 1mg mg tablet 103 00:00: 00 trazodone 2015-07 No 1mg 150 [...] 25 mg 1- tablet 00:00: 00 Lexapro 20 2015-07 No [...] 100 mg 0-11 tablet 00:00: 00 Lexapro 2015- No 1mg mg tablet 0-11 00:00: [...] Vistaril 50 2016-0 No 1mg mg capsule 08 00:00: 00 Vistaril 50 2016-0 No 1mg [...] doxepin 10 2015-0 No 12mg mg capsule -14 00:00: 00 Effexor XR 2016-0 No mg [...] 1,000 mg -08 tablet 00:00: 00 lisinopril 2014-0 No 1mg 5 mg tablet 01-15 00:00: [...] lisinopril 2015-0 No 1mg 5 mg tablet 7-08 00:00: 00 glimepiride 2015-0 No 1mg 4 mg tablet 7- 00:00: 00 metformin 2015-0 No 1mg 1,000 mg 7- tablet 00:00: 00 Januvia 100 2015-0 No 1mg mg tablet 5- 00:00: 00 Juan Juvwarner 100 2015-0 No 1mg mg tablet 5- 00:00: 00 Juan Juvwarner 2015-0 No 1mg mg tablet 5- 00:00: [...] 1mg mg tablet 5 00:00: 00 Layla 2015-0 No 1mg mg tablet 5 00:00: [...] mg 1-28 tablet 00:00: 00 Vistaril 50 2014-0 No [...] [place] Strips ( [facility] Blood 2-14 ity of Glucose 00:00: [place] Strips ( Medical TOUCH Branch COMBO) [facility] & [facility]- Yes [facility] Blood 2-14 ity of Glucose 00:00: [place] Strips ( Medical TOUCH Branch COMBO) [facility] & [facility]- Yes Univers Blood 2-14 ity of Glucose 00:00: [place] Strips ( Medical TOUCH Branch COMBO) [facility] & [facility]- Yes Univers Blood 2-14 ity of Glucose 00:00: [place] Strips ( Medical TOUCH Branch COMBO) [facility] & 2012- Yes Univers Blood 2-14 ity of Glucose 00:00: [place] Strips ( Medical TOUCH Branch COMBO) [facility] & 2012- Yes Univers Blood 2-14 ity of Glucose 00:00: [place] Strips ( Medical TOUCH Branch COMBO) [facility] & 2012- Yes Univers Blood 2-14 ity of Glucose 00:00: [place] Strips (ONE 00 Medical TOUCH Branch COMBO) C[facility]k Lancets & 2013- Yes Univers Blood 2-14 ity of Glucose 00:00: [place] Strips (ONE 00 Medical TOUCH Branch COMBO) Cmpk Lancets & 2012- Yes Univers Blood 2-14 ity of Glucose 00:00: [place] Strips (ONE Medical TOUCH Branch COMBO) Cmpk Lancets & 2012- Yes Univers Blood 2-14 ity of Glucose 00:00: [place] Strips (ONE Medical TOUCH Branch COMBO) Cmpk Blood-Gluco Yes [...] Dose 2022-06-02 Completed Unive rsity of 00:00:00 [facility] Moderna COVID-19 2021-07-24 Completed Vaccine 00:00:00 Moderna [...] Protein, Pf Covid-19 Vaccine 2021-07-24 Completed Andreea casillasborafael - Moderna (Spikevax), 00:00:00 Exter nal Mrna-lnp, Florentin Protein, Pf Covid-19 Vaccine 2021-07-24 Completed Andreea aceves - Moderna (Spikevax), 00:00:00 Exter nal Mrna-lnp, Florentin Protein, Pf Covid-19 Vaccine 2021-07-24 Completed Andreea aceves - Moderna (Spikevax), 00:00:00 Exter nal Mrna-lnp, Florentin Protein, Pf Covid-19 Vaccine 2021-07-24 Completed Andreea Rhodes eybold - Moderna (Spikevax), 00:00:00 Exter nal Mrna-lnp, Florentin Protein, Pf Covid-19 Vaccine 2021-07-24 Completed Andreea Rhodes eyborafael - Moderna (Spikevax), 00:00:00 Exter nal Mrna-lnp, Florentin Protein, Pf Pneumococcal 2020-05-21 Completed University o f Polysaccharide, 00:00:00 [place] [facility] ical PPSV23 (PNEUMOVAX) Branch TDAP 2020-05-21 Completed University of 00:00:00 [facility] Pneumococcal 2020-05-21 Completed University o f Polysaccharide, 00:00:00 [place] [facility] ical PPSV23 (PNEUMOVAX) Branch TDAP 2020-05-21 Completed University of 00:00:00 [facility] Pneumococcal 2020-05-21 Completed University o f Polysaccharide, 00:00:00 [place] [facility] ical PPSV23 (PNEUMOVAX) Branch TDAP 2020-05-21 Completed University of 00:00:00 [facility] Pneumococcal 2020-05-21 Completed University o f Polysaccharide, 00:00:00 [place] [facility] ical PPSV23 (PNEUMOVAX) Branch TDAP 2020-05-21 Completed University of 00:00:00 [facility] Pneumococcal 2020-05-21 Completed University o f Polysaccharide, 00:00:00 [place] [facility] ical PPSV23 (PNEUMOVAX) Branch TDAP 2020-05-21 Completed University of 00:00:00 [facility] Pneumococcal 2020-05-21 Completed University o f Polysaccharide, 00:00:00 [place] [facility] ical PPSV23 (PNEUMOVAX) Branch TDAP 2020-05-21 Completed University of 00:00:00 [facility] Pneumococcal 2020-05-21 Completed University o f Polysaccharide, 00:00:00 [place] [facility] ical PPSV23 (PNEUMOVAX) Branch TDAP 2020-05-21 Completed University of 00:00:00 [facility] Pneumococcal 2020-05-21 Completed University o f Polysaccharide, 00:00:00 [place] [facility] ical PPSV23 (PNEUMOVAX) Branch TDAP 2020-05-21 Completed University of 00:00:00 [facility] Pneumococcal 2020-05-21 Completed University o f Polysaccharide, 00:00:00 [place] [facility] ical PPSV23 (PNEUMOVAX) Branch TDAP 2020-05-21 Completed University of 00:00:00 [facility] Pneumococcal 2020-05-21 Completed University o f Polysaccharide, 00:00:00 [place] [facility] ical PPSV23 (PNEUMOVAX) Branch TDAP 2020-05-21 Completed University of 00:00:00 [facility] Pneumococcal 2020-05-21 Completed University o f Polysaccharide, 00:00:00 [facility] PPSV23 (PNEUMOVAX) Branch TDAP 2020-05-21 Completed University of 00:00:00 [facility] Pneumococcal Vaccine, 2020-05-21 Completed Spencer sey Seybold [...] External MMR 2013-07-25 Completed University of 00:00:00 [facility] MMR 2013-07-25 Completed University of 00:00:00 [facility] MMR 2013-07-25 Completed University of 00:00:00 [facility] MMR 2013-07-25 Completed University of 00:00:00 [facility] MMR 2013-07-25 Completed University of 00:00:00 [facility] MMR 2013-07-25 Completed University of 00:00:00 [facility] MMR 2013-07-25 Completed University of 00:00:00 [facility] MMR 2013-07-25 Completed University of 00:00:00 [facility] MMR 2013-07-25 Completed University of 00:00:00 [facility] MMR 2013-07-25 Completed University of 00:00:00 [facility] MMR 2013-07-25 Completed University of 00:00:00 [facility] MMR- Measles, Mumps, 2013-07-25 Completed Mildred ey Seybold - Rubella 00:00:00 External MMR- Measles, Mumps, 2013-07-25 Completed Mildred ey Seybold - Rubella 00:00:00 External MMR- Measles, Mumps, 2013-07-25 Completed Mildred ey Seybold - Rubella 00:00:00 External MMR- Measles, Mumps, 2013-07-25 Completed Mildred ey Seybold - Rubella 00:00:00 External TDAP 2013-05-21 Completed University of 00:00:00 [place] [facility] TDAP 2013-05-21 Completed University of 00:00:00 [place] [facility] TDAP 2013-05-21 Completed University of 00:00:00 [place] [facility] TDAP 2013-05-21 Completed University of 00:00:00 [place] [facility] TDAP 2013-05-21 Completed University of 00:00:00 [place] [facility] TDAP 2013-05-21 Completed University of 00:00:00 [place] [facility] TDAP 2013-05-21 Completed University of 00:00:00 [place] [facility] TDAP 2013-05-21 Completed University of 00:00:00 [facility] Branch TDAP 2013-05-21 Completed University of 00:00:00 [facility] Branch TDAP 2013-05-21 Completed University of 00:00:00 [place] [facility] TDAP 2013-05-21 Completed University of 00:00:00 [facility] Tdap- (Boostrix, 2013-05-21 Completed Andreea S eybold - Adacel) 00:00:00 External Tdap- (Boostrix, 2013-05-21 Completed Andreea S eybold - Adacel) 00:00:00 External Tdap- (Boostrix, 2013-05-21 Completed Andreea S eybold - Adacel) 00:00:00 External Tdap- (Boostrix, 2013-05-21 Completed Andreea S eybold - Adacel) 00:00:00 External Influenza Virus 2013-03-19 Completed Universit y of Vaccine 00:00:00 [facility] Influenza Virus 2013-03-19 Completed Universit y of Vaccine 00:00:00 [facility] Influenza Virus 2013-03-19 Completed Universit y of Vaccine 00:00:00 [facility] Influenza Virus 2013-03-19 Completed Universit y of Vaccine 00:00:00 [facility] Influenza Virus 2013-03-19 Completed Universit y of Vaccine 00:00:00 [facility] Influenza Virus 2013-03-19 Completed Universit y of Vaccine 00:00:00 [facility] Influenza Virus 2013-03-19 Completed Universit y of Vaccine 00:00:00 [facility] Influenza Virus 2013-03-19 Completed Universit y of Vaccine 00:00:00 [facility] Influenza Virus 2013-03-19 Completed Universit y of Vaccine 00:00:00 [facility] Influenza Virus 2013-03-19 Completed Universit y of Vaccine 00:00:00 [facility] Influenza Virus 2013-03-19 Completed Universit y of Vaccine 00:00:00 [facility] Influenza Virus 2013-03-19 Completed Andreea Godfrey ybold - Vaccine, Unspecified 00:00:00 Exte rnal Formulation Influenza Virus 2013-03-19 Completed Andreea Godfrey ybold - Vaccine, Unspecified 00:00:00 Exte rnal Formulation Influenza Virus 2013-03-19 Completed Andreea Godfrey ybold - Vaccine, Unspecified 00:00:00 Exte rnal Formulation Influenza Virus 2013-03-19 Completed Andreea Godfrey ybold - Vaccine, Unspecified 00:00:00 Exte rnal Formulation Rubella 2008-04-17 Completed University of 00:00:00 [facility] Rubella 2008-04-17 Completed University of 00:00:00 [facility] Rubella 2008-04-17 Completed University of 00:00:00 [facility] Rubella 2008-04-17 Completed University of 00:00:00 [facility] Rubella 2008-04-17 Completed University of 00:00:00 [facility] Rubella 2008-04-17 Completed University of 00:00:00 [facility] Rubella 2008-04-17 Completed University of 00:00:00 [facility] Rubella 2008-04-17 Completed University of 00:00:00 [facility] Rubella 2008-04-17 Completed University of 00:00:00 [facility] Rubella 2008-04-17 Completed University of 00:00:00 [facility] Rubella 2008-04-17 Completed University of 00:00:00 [facility] Rubella 2008-04-17 Completed Andreea Corona - 00:00:00 External Rubella 2008-04-17 Completed Andreea Corona - 00:00:00 External Rubella 2008-04-17 Completed Andreea Corona - 00:00:00 External Rubella 2008-04-17 Completed Andreea Corona - 00:00:00 External TD, NOS 2004-07-11 Completed University of 00:00:00 [facility] TD, NOS 2004-07-11 Completed University of 00:00:00 [facility] Td 2004-07-11 Completed University of 00:00:00 [facility] Td 2004-07-11 Completed University of 00:00:00 [facility] Td 2004-07-11 Completed University of 00:00:00 [facility] Td 2004-07-11 Completed University of 00:00:00 [facility] Td 2004-07-11 Completed University of 00:00:00 [facility] Td 2004-07-11 Completed University of 00:00:00 [facility] Td 2004-07-11 Completed University of 00:00:00 [facility] TD, NOS 2004-07-11 Completed University of 00:00:00 [facility] TD, NOS 2004-07-11 Completed University of 00:00:00 [facility] Tdap- (Boostrix, 2004-07-11 Completed Andreea Rhodes eybold - Adacel) 00:00:00 External Tdap- (Boostrix, 2004-07-11 Completed Andreea Rhodes eybold - Adacel) 00:00:00 External Tdap- (Boostrix, 2004-07-11 Completed Andreea Rhodes eybold - Adacel) 00:00:00 External Tdap- (Boostrix, 2004-07-11 Completed Andreea casillasbold - Adacel) 00:00:00 External Vital Signs Vital Name Observation Time Observation Value Comments Source Systolic blood 2023-02-17 21:28:00 118 mm[Hg] Andreea Corona - pressure External Diastolic blood 2023-02-17 21:28:00 60 mm[Hg] Vikram Corona - pressure External Heart rate 2023-02-17 21:28:00 94 /min Andreea aceves - External Body temperature 2023-02-17 21:28:00 36.39 Lorenza Mildred Corona - External Respiratory rate 2023-02-17 21:28:00 20 /min Mildred Corona - External Body height 2023-02-17 21:28:00 162.6 cm Andreea aceves - External Body weight 2023-02-17 21:28:00 106.232 kg Andreea S eybold - External BMI 2023-02-17 21:28:00 40.20 kg/m2 Andreea S eybold - External Oxygen saturation in 2023-02-17 21:28:00 98 /min Andreea Corona - Arterial blood by External Pulse oximetry Systolic blood 2023-01-12 12:08:00 108 mm[Hg] Univer sity of pressure [facility] Diastolic blood 2023-01-12 12:08:00 66 mm[Hg] Unive rsity of pressure [facility] Heart rate 2023-01-12 12:08:00 68 /min Universi ty of [facility] Body temperature 2023-01-12 12:08:00 36 Lorenza Univ ersity of [facility] Respiratory rate 2023-01-12 12:08:00 14 /[facility] 2023-01-12 12:08:00 96 /min University of [facility]ter[facility] blood by [facility] Pulse oximetry Branch Body weight 2023-01-12 08:58:00 105.96 kg Universi ty [facility] BMI 2023-01-12 08:58:00 40.10 kg/m2 Universi ty [facility] Body height 2023-01-10 16:47:[facility] 2022-12-21 19:08:00 115 mm[Hg] Andreea Godfreyybold - pressure External Diastolic blood 2022-12-21 19:08:00 77 mm[Hg] Vikram gray Seybold - pressure External Heart rate 2022-12-21 19:08:00 96 /min Andreea Nakul eybold - External Body temperature 2022-12-21 19:08:00 36.72 Lorenza Mildred ey Seybold - External Respiratory rate 2022-12-21 19:08:00 18 /min Mildred ey Seybold - External Body height 2022-12-21 19:08:00 162.6 cm Andreea S eybold - External Body weight 2022-12-21 19:08:00 104.327 kg Andreea S eybold - External BMI 2022-12-21 19:08:00 39.48 kg/m2 Andreea S eybold - External Systolic blood 2022-12-17 19:52:00 120 mm[Hg] Andreea Seybold - pressure External Diastolic blood 2022-12-17 19:52:00 81 mm[Hg] Vikram gray Seybold - pressure External Heart rate 2022-12-17 19:52:00 119 /min Andreea casillasbold - External Body temperature 2022-12-17 19:52:00 36.89 [...] 15:00:00 103 mm[Hg] Univer sity of pressure [facility] Diastolic blood 2022-11-03 15:00:00 72 mm[Hg] Unive rsity of pressure [facility] Heart rate 2022-11-03 15:00:00 76 /min [facility] Oxygen saturation in 2022-11-03 15:00:00 96 /min [facility] Arterial blood by [facility] Pulse oximetry Branch Respiratory rate 2022-11-03 14:58:00 14 /min Univ ersity [facility] Body temperature 2022-11-03 13:25:00 37.22 Lorenza Univ ersity [facility] Body weight 2022-11-03 13:25:00 99.791 kg Universi ty [facility] BMI 2022-11-03 13:25:00 37.76 kg/m2 [facility] Systolic blood 2022-10-01 20:47:00 110 mm[Hg] Andreea Godfreyybold - pressure External Diastolic blood 2022-10-01 20:47:00 75 mm[Hg] Vikram gray Seybold - pressure External Heart rate 2022-10-01 20:47:00 104 /min Andreea Rhodes eybold - External Body temperature 2022-10-01 20:47:00 37.11 Lorenza Mildred ey Seybold - External Respiratory rate 2022-10-01 20:47:00 14 /min Mildred ey Seybold - External Body height 2022-10-01 20:47:00 162.6 cm Andreea Rhodes eybold - External Body weight 2022-10-01 20:47:00 105.235 kg Andreea Rhodes eybold - External BMI 2022-10-01 20:47:00 39.82 kg/m2 Andreea Rhodes eybold - External Oxygen saturation in 2022-10-01 20:47:00 99 /min Andreea Traoreold - Arterial blood by External Pulse oximetry Systolic blood 2022-09-10 16:20:00 105 mm[Hg] Andreea Seybold - pressure External Diastolic blood 2022-09-10 16:20:00 73 mm[Hg] Vikram y Seybold - pressure External Heart rate 2022-09-10 16:20:00 102 /min Andreea Rhodes eybold - External Body temperature 2022-09-10 16:20:00 36.44 Lorenza Mildred ey Seybold - External Respiratory rate 2022-09-10 16:20:00 18 /min Mildred casillas Seybold - External Body height 2022-09-10 16:20:00 162.6 cm Andreea Rhodes eybold - External Body weight 2022-09-10 16:20:00 109.317 kg Andreea Rhodes eybold - External BMI 2022-09-10 16:20:00 41.37 kg/m2 Andreea S eybold - External Systolic blood 2022-09-07 20:49:00 103 mm[Hg] Andreea Seybold - pressure External Diastolic blood 2022-09-07 20:49:00 68 mm[Hg] Spencerse y Seybold - pressure External Heart rate 2022-09-07 20:49:00 119 /min Andreea Rhodes eybold - External Body temperature 2022-09-07 20:49:00 37.17 Lorenza Mildred ey Seybold - External Respiratory rate 2022-09-07 20:49:00 14 /min Mildred ey Seybold - External Body height 2022-09-07 20:49:00 162.6 cm Andreea S eybold - External Body weight 2022-09-07 20:49:00 109.317 kg Andreea aceves - External BMI 2022-09-07 20:49:00 41.37 kg/m2 Andreea aceves - External Oxygen saturation in 2022-09-07 20:49:00 96 /min Andreea Corona - Arterial blood by External Pulse oximetry Systolic blood 2022-08-30 14:00:00 112 mm[Hg] Univer sity of pressure [facility] Diastolic blood 2022-08-30 14:00:00 75 mm[Hg] Unive rsity of pressure [facility] Oxygen saturation in 2022-08-30 14:00:00 97 /min University of [place]terial blood by [place] [facility] Pulse oximetry Branch Heart rate 2022-08-30 13:00:00 93 /min [facility] [place] [facility] [place] Body temperature 2022-08-30 13:00:00 35.83 Lorenza Univ ersity of [facility] Respiratory rate 2022-08-30 13:00:00 15 /min Univ ersity [facility] Body weight 2022-08-29 12:00:00 112.492 kg Universi ty [facility] BMI 2022-08-29 12:00:00 42.57 kg/m2 [facility]i ty [facility] Body height 2022-08-27 00:21:00 162.6 cm Universi ty [facility] Systolic blood 2022-06-22 04:59:00 110 mm[Hg] Univer sity of pressure [facility] Diastolic blood 2022-06-22 04:59:00 70 mm[Hg] Unive rsity of pressure [facility] Heart rate 2022-06-22 04:59:00 107 /min Universi ty of [facility] Respiratory rate 2022-06-22 04:59:00 22 /min Univ ersity of [facility] Oxygen saturation in 2022-06-22 04:59:00 97 /min University of Arterial blood by [place] [facility] Pulse oximetry Branch Body temperature 2022-06-21 23:26:00 37.28 Lorenza Univ ersity of [facility] Body height 2022-06-21 23:26:00 162.6 cm Universi ty [facility] Body weight 2022-06-21 23:26:00 98.431 kg Universi ty [facility] BMI 2022-06-21 23:26:00 37.25 kg/m2 Universi ty [facility] Systolic blood 2021-10-17 02:05:00 117 mm[Hg] Univer sity of pressure [facility] Diastolic blood 2021-10-17 02:05:00 63 mm[Hg] Unive rsity of pressure [facility] Heart rate 2021-10-17 02:05:00 76 /min Universi ty of [facility] Respiratory rate 2021-10-17 02:05:00 18 /min Univ ersity of [facility] Oxygen saturation in 2021-10-17 02:05:00 98 /min [facility]terial blood by [place] [facility] Pulse oximetry Branch Body temperature 2021-10-16 22:30:00 37.33 Lorenza Univ ersity of [facility] Body weight 2021-10-16 21:38:00 103.42 kg Universi ty [facility] BMI 2021-10-16 21:38:00 37.94 kg/m2 [facility]i ty [facility] Systolic blood 2021-09-22 17:00:00 108 mm[Hg] Univer sity of pressure [facility] Diastolic blood 2021-09-22 17:00:00 77 mm[Hg] Unive rsity of pressure [facility] Heart rate 2021-09-22 17:00:00 90 /min Universi ty of [facility] Oxygen saturation in 2021-09-22 17:00:00 97 /min University of Arterial blood by [place] [facility] Pulse oximetry Branch Respiratory rate 2021-09-22 15:00:00 18 /min Univ ersity of [facility] Body temperature 2021-09-22 14:52:00 37.11 Lorenza Univ ersity of [facility] Body weight 2021-09-22 14:52:00 103.42 kg Universi ty [facility] BMI 2021-09-22 14:52:00 37.94 kg/m2 [facility]i ty [facility] Systolic blood 2021-06-18 12:00:00 142 mm[Hg] Univer sity of pressure [facility] Diastolic blood 2021-06-18 12:00:00 94 mm[Hg] Unive rsity of pressure [facility] Heart rate 2021-06-18 12:00:00 98 /min Universi ty of [facility] Body temperature 2021-06-18 12:00:00 36.56 Lorenza Univ ersity of [facility] Respiratory rate 2021-06-18 12:00:00 13 /min Univ ersity of [facility] Oxygen saturation in 2021-06-18 12:00:00 95 /min University of Arterial blood by [facility] bonita Pulse oximetry Branch Body height 2021-06-18 10:37:00 165.1 cm Universi ty [facility] Body weight 2021-06-18 10:37:00 107.502 kg Universi ty [facility] BMI 2021-06-18 10:37:00 39.44 kg/m2 [facility]i ty [facility] Systolic blood 2021-05-31 01:34:00 139 mm[Hg] Univer sity of pressure [facility] Diastolic blood 2021-05-31 01:34:00 90 mm[Hg] Unive rsity of pressure [place] [facility] [place] Heart rate 2021-05-31 01:34:00 112 /min Universi ty of [facility] Respiratory rate 2021-05-31 01:34:00 20 /min Univ ersity of [facility] Oxygen saturation in 2021-05-31 01:34:00 98 /min University of Arterial blood by [facility] Pulse oximetry Branch Body weight 2021-05-30 21:47:00 107.502 kg Universi ty of [facility] BMI 2021-05-30 21:47:00 40.68 kg/m2 [facility]i ty [facility] BP Systolic 2022-06-18 10:43:00 118 [...] POCT GLUCOSE (AUTOMATED) 2023-01-12 12:34:00 Gudelia Garcia [facility] LIPASE 2023-01-12 10:11:00 Mary Morrison [facility] BASIC METABOLIC PANEL 2023-01-12 10:11:00 aMry Morrison [facility] (NA, K, CL, CO2, Medical Branch GLUCOSE, BUN, CREATININE, CA) CBC WITH DIFF 2023-01-12 10:11:00 Mary Morrison [facility] POCT GLUCOSE (AUTOMATED) 2023-01-12 02:34:00 Gudelia Garcia [facility] POCT GLUCOSE (AUTOMATED) 2023-01-11 21:20:00 Gudelia Garcia [facility] POCT GLUCOSE (AUTOMATED) 2023-01-11 16:26:00 Gudelia Garcia [facility] POCT GLUCOSE (AUTOMATED) 2023-01-11 12:42:00 Gudelia Garcia [facility] LIPID PANEL 2023-01-11 06:30:00 Gudelia Garcia [facility] ([id number])(TOTAL Medical Branch CHOLESTEROL, TRIGLYCERIDES, HDL) LOW-DENSITY LIPOPROTEIN, 2023-01-11 06:30:00 Gudelia Garcia [facility] DIRECT [facility] POCT GLUCOSE (AUTOMATED) 2023-01-11 02:07:00 Gudelia Garcia [facility] ADC CLC OR LCC ONLY - 2023-01-10 20:13:00 Deya Juarez [facility] WET PREP [facility] HSV 1 AND 2 GLYCOPROTEIN 2023-01-10 20:13:00 Judy Juarez [facility] G IGG [facility] US PELVIS COMPLETE WITH 2023-01-10 20:11:36 Howie Juarez [facility] TRANSVAGINAL [facility] GLYCOSYLATED HEMOGLOBIN 2023-01-10 17:35:00 Gudelia Garcia [facility] (A1C) [facility] CT ABDOMEN PELVIS W 2023-01-10 15:07:[address] [facility] CONTRAST [facility] POCT TEST 2023-01-10 13:37:[address] [facility] TRIGLYCERIDES 2023-01-10 13:29:00 Ngoc Tinajero [facility] LIPASE 2023-01-10 13:29:00 Ngoc Tinajero [facility] COMP. METABOLIC PANEL 2023-01-10 13:29:00 Ngoc Tinajero [facility] ([id number]) [facility] CBC WITH DIFF 2023-01-10 13:29:00 Ngoc Tinajero [facility] ASSIGNMENT OF BENEFITS 2023-01-10 12:54:19 Doctor Unassigned, No [facility] Name [facility] URINALYSIS 2023-01-10 12:31:00 Ngoc Tinajero [facility] CONSENT/REFUSAL FOR 2023-01-10 12:22:34 Doctor Unassigned, No [facility] [place] [facility] Name [facility] REAGENT STRIP/BLOOD 2022-12-21 00:00:00 Outside, Reported Andreea Traoreold - GLUCOSE External LIPASE 2022-11-03 13:37:00 [facility] 2022-11-03 13:37[facility]00 [id number] (ALB,T.PRO,BILI [facility] T,BU/BC,ALT,AST,ALK PHOS) BASIC METABOLIC PANEL 2022-11-03 13:37:00 [facility], K, CL, CO2, [facility] GLUCOSE, BUN, CREATININE, CA) LIPID PANEL 2022-11-03 13:37[facility]00 [id number] CHOLESTEROL, TRIGLYCERIDES, HDL) CBC WITH DIFF 2022-11-03 13:37:00 [facility] 2022-11-03 13:37:00 [facility] CONSENT/REFUSAL FOR 2022-11-03 13:22:43 Doctor Unassigned, No [facility] REAGENT STRIP/BLOOD 2022-09-10 00:00:00 Outside, Reported Andreea Traoreold - GLUCOSE External POCT GLUCOSE (AUTOMATED) 2022-08-30 14:52:00 Meri Wray [facility] POCT GLUCOSE (AUTOMATED) 2022-08-30 13:01:00 Meri Wray [facility] POCT GLUCOSE (AUTOMATED) 2022-08-30 12:03:00 Meri Wray [facility] POCT GLUCOSE (AUTOMATED) 2022-08-30 11:04:00 Meri Wray [facility] TRIGLYCERIDES 2022-08-30 10:18:00 Kamala [facility] BASIC METABOLIC PANEL 2022-08-30 10:18:00 Kamala [facility] (NA, K, CL, CO2, Medical Branch GLUCOSE, BUN, CREATININE, CA) POCT GLUCOSE (AUTOMATED) 2022-08-30 10:11:00 Meri Wray Uni versity of [facility] POCT GLUCOSE (AUTOMATED) 2022-08-30 09:10:00 OvMeri moran Uni versity of [facility] POCT GLUCOSE (AUTOMATED) 2022-08-30 08:08:00 OvMeri moran Uni versity of [facility] POCT GLUCOSE (AUTOMATED) 2022-08-30 07:15:00 OvMeri moran Uni versity of [facility] POCT GLUCOSE (AUTOMATED) 2022-08-30 06:28:00 OvMeri moran Uni versity of [facility] POCT GLUCOSE (AUTOMATED) 2022-08-30 05:04:00 OvMeri moran Uni versity of [facility] POCT GLUCOSE (AUTOMATED) 2022-08-30 04:11:00 Meri Wray Uni versity of [facility] POCT GLUCOSE (AUTOMATED) 2022-08-30 03:03:00 OvMeri omran Uni versity of [facility] POCT GLUCOSE (AUTOMATED) 2022-08-30 02:21:00 OvMeri moran Uni versity of [facility] POCT GLUCOSE (AUTOMATED) 2022-08-30 01:02:00 OvMeri moran Uni versity of [facility] POCT GLUCOSE (AUTOMATED) 2022-08-30 00:03:00 Meri Wray Uni versity of [facility] POCT GLUCOSE (AUTOMATED) 2022-08-29 23:00:00 OvMeri moran Uni versity of [facility] POCT GLUCOSE (AUTOMATED) 2022-08-29 22:04:00 OvMeri moran Uni versity of [facility] POCT GLUCOSE (AUTOMATED) 2022-08-29 21:11:00 Meri Wray Uni versity of [facility] POTASSIUM SERUM 2022-08-29 20:33:00 Kamala [facility] TRIGLYCERIDES 2022-08-29 20:33:00 Ovtonja [facility] POCT GLUCOSE (AUTOMATED) 2022-08-29 20:07:00 Meri Wray Uni versity of [facility] POCT GLUCOSE (AUTOMATED) 2022-08-29 19:09:00 Meri Wray Uni versity of [facility] POCT GLUCOSE (AUTOMATED) 2022-08-29 18:12:00 Meri Wray Uni versity of [facility] POCT GLUCOSE (AUTOMATED) 2022-08-29 17:08:00 OvMeri moran Uni versity of [facility] POCT GLUCOSE (AUTOMATED) 2022-08-29 16:14:00 OvMeri moran Uni versity of [facility] POCT GLUCOSE (AUTOMATED) 2022-08-29 15:05:00 OvMeri moran Uni versity of [facility] POCT GLUCOSE (AUTOMATED) 2022-08-29 14:08:00 Meri Wray Uni versity of [facility] POCT GLUCOSE (AUTOMATED) 2022-08-29 13:18:00 Meri Wray Uni versity of [facility] POCT GLUCOSE (AUTOMATED) 2022-08-29 12:06:00 Meri Wray Uni versity of [facility] POCT GLUCOSE (AUTOMATED) 2022-08-29 10:56:00 Meri Wray Uni versity of [facility] TRIGLYCERIDES 2022-08-29 10:53:00 Kamala [facility] MAGNESIUM 2022-08-29 10:53:00 Pedro [facility] BASIC METABOLIC PANEL 2022-08-29 10:53:00 Meri Wray [facility] (NA, K, CL, CO2, Medical Branch GLUCOSE, BUN, CREATININE, CA) POCT GLUCOSE (AUTOMATED) 2022-08-29 09:59:00 Meri Wray Uni versity of [facility] POCT GLUCOSE (AUTOMATED) 2022-08-29 09:07:00 Meri Wray Uni versity of [facility] POCT GLUCOSE (AUTOMATED) 2022-08-29 07:55:00 Meri Wray Uni versity of [facility] POCT GLUCOSE (AUTOMATED) 2022-08-29 07:06:00 Meri Wray Uni versity of [facility] POCT GLUCOSE (AUTOMATED) 2022-08-29 06:02:00 OvParesh morani Uni versity of [facility] POCT GLUCOSE (AUTOMATED) 2022-08-29 05:09:00 OvParesh morani Uni versity of [facility] POCT GLUCOSE (AUTOMATED) 2022-08-29 04:09:00 OvParesh morani Uni versity of [facility] POCT GLUCOSE (AUTOMATED) 2022-08-29 03:17:00 OvParesh morani Uni versity of [facility] POCT GLUCOSE (AUTOMATED) 2022-08-29 02:11:00 Ovtonja, Meri Uni versity of [facility] POCT GLUCOSE (AUTOMATED) 2022-08-29 01:00:00 OvMeri moran Uni versity of [facility] POCT GLUCOSE (AUTOMATED) 2022-08-29 00:13:00 OvMeri moran Uni versity of [facility] POCT GLUCOSE (AUTOMATED) 2022-08-28 23:13:00 OvMeri moran Uni versity of [facility] POCT GLUCOSE (AUTOMATED) 2022-08-28 22:15:00 OvParesh morani Uni versity of [facility] POCT GLUCOSE (AUTOMATED) 2022-08-28 21:04:00 OvMeri moran Uni versity of [facility] POCT GLUCOSE (AUTOMATED) 2022-08-28 20:03:00 OvMeri moran Uni versity of [facility] POCT GLUCOSE (AUTOMATED) 2022-08-28 19:06:00 Meri Wray Uni versity of [facility] TRIGLYCERIDES 2022-08-28 18:22:00 Kamala [facility] o f [facility] BASIC METABOLIC PANEL 2022-08-28 18:22:00 Meri Wray [facility] (NA, K, CL, CO2, Medical Branch GLUCOSE, BUN, CREATININE, CA) POCT GLUCOSE (AUTOMATED) 2022-08-28 18:13:00 OvMeri moran Uni versity of [facility] POCT GLUCOSE (AUTOMATED) 2022-08-28 17:03:00 OvMeri moran Uni versity of [facility] POCT GLUCOSE (AUTOMATED) 2022-08-28 16:02:00 Meri Wray Uni versity of [facility] POCT GLUCOSE (AUTOMATED) 2022-08-28 15:02:00 Meri Wrya Uni versity of [facility] POCT GLUCOSE (AUTOMATED) 2022-08-28 14:03:00 Meri Wray Uni versity of [facility] POCT GLUCOSE (AUTOMATED) 2022-08-28 13:04:00 Meri Wray [facility] [facility] POCT GLUCOSE (AUTOMATED) 2022-08-28 12:30:00 Meri Wray Uni versity of [facility] POCT GLUCOSE (AUTOMATED) 2022-08-28 11:32:00 Meri Wray Uni versity of [facility] POCT GLUCOSE (AUTOMATED) 2022-08-28 10:06:00 Meri Wray Uni vers[facility] of [facility] TRIGLYCERIDES 2022-08-28 10:00:00 [facility] BASIC METABOLIC PANEL 2022-08-28 10:00:00 Meri Wray [facility] (NA, K, CL, CO2, Medical Branch GLUCOSE, BUN, CREATININE, CA) POCT GLUCOSE (AUTOMATED) 2022-08-28 08:59:00 Meri Wray Uni versity of [facility] POCT GLUCOSE (AUTOMATED) 2022-08-28 08:05:00 Meri Wray Uni versity of [facility] POCT GLUCOSE (AUTOMATED) 2022-08-28 05:58:00 Meri Wray Uni vers[facility] of [facility] POCT GLUCOSE (AUTOMATED) 2022-08-28 05:03:00 Meri Wray Uni vers[facility] of [facility] POCT GLUCOSE (AUTOMATED) 2022-08-28 04:01:00 Meri Wray Uni vers[facility] of [facility] POCT GLUCOSE (AUTOMATED) 2022-08-28 03:04:00 Meri Wray Uni vers[facility] of [facility] POCT GLUCOSE (AUTOMATED) 2022-08-28 02:02:00 Meri Wray Uni vers[facility] of [facility] POCT GLUCOSE (AUTOMATED) 2022-08-28 01:01:00 Meri Wray Uni versity [facility] POCT GLUCOSE (AUTOMATED) 2022-08-28 00:02:00 Meri Wray Uni versity [facility] POCT GLUCOSE (AUTOMATED) 2022-08-27 23:34:00 Meri Wray Uni versity [facility] POCT GLUCOSE (AUTOMATED) 2022-08-27 22:07:00 [facility] 2022-08-27 21:28:00 [facility], K, CL, CO2, Medical Branch GLUCOSE, BUN, CREATININE, CA) POCT GLUCOSE (AUTOMATED) 2022-08-27 21:01:00 Meri Wray Uni versity [facility] POCT GLUCOSE (AUTOMATED) 2022-08-27 20:17:00 Meri Wray Uni versity [facility] POCT GLUCOSE (AUTOMATED) 2022-08-27 19:00:00 Meri Wray Uni versity [facility] POCT GLUCOSE (AUTOMATED) 2022-08-27 18:02:00 Meri Wray Uni versity [facility] TRIGLYCERIDES 2022-08-27 17:17:00 Meri Wray [facility] BASIC METABOLIC PANEL 2022-08-27 17:17:00 Kamala [facility] (NA, K, CL, CO2, Medical Branch GLUCOSE, BUN, CREATININE, CA) POCT GLUCOSE (AUTOMATED) 2022-08-27 16:59:00 Meri Wray Uni versity [facility] POCT GLUCOSE (AUTOMATED) 2022-08-27 16:12:00 Meri Wray Uni versity [facility] POCT GLUCOSE (AUTOMATED) 2022-08-27 15:13:00 Meri Wray Uni versity of [facility] POCT GLUCOSE (AUTOMATED) 2022-08-27 14:19:00 Meri Wray Uni versity [facility] POCT GLUCOSE (AUTOMATED) 2022-08-27 13:23:00 Meri Wray Uni versity [facility] POCT GLUCOSE (AUTOMATED) 2022-08-27 12:05:00 Meri Wray [facility] POCT GLUCOSE (AUTOMATED) 2022-08-27 11:06:00 Meri Wray Uni [facility] POCT GLUCOSE (AUTOMATED) 2022-08-27 10:14:00 [facility] ([facility]OMATED) 2022-08-27 09:04:00 Meri Wray [facility] TRIGLYCERIDES 2022-08-27 08:14:00 Kamala [facility] BASIC METABOLIC PANEL 2022-08-27 08:14:00 Kamala [facility] (NA, K, CL, CO2, Medical Branch GLUCOSE, BUN, CREATININE, CA) POCT GLUCOSE (AUTOMATED) 2022-08-27 06:58:00 Meri Wray Uni [facility] POCT GLUCOSE (AUTOMATED) 2022-08-27 06:11:00 Meri Wray [facility] POCT GLUCOSE (AUTOMATED) 2022-08-27 05:11:00 Meri Wray [facility] POCT GLUCOSE (AUTOMATED) 2022-08-27 03:13:00 Meri Wray [facility] LIPASE 2022-08-27 02:32:00 Miguel Allen [facility] BASIC METABOLIC PANEL 2022-08-27 02:32:00 [facility] ([facility], K, CL, CO2, Medical Branch GLUCOSE, BUN, CREATININE, CA) MRSA / MSSA SCREEN BY 2022-08-27 02:32:00 Meri Wray [facility] PCR, [facility] POCT GLUCOSE (AUTOMATED) 2022-08-27 02:00:00 Meri Wray Uni [facility] POCT GLUCOSE (AUTOMATED) 2022-08-27 01:14:00 [facility] (AUTOMATED) 2022-08-27 00:14:00 Meri Wray Uni [facility] POCT GLUCOSE (AUTOMATED) 2022-08-26 23:51:00 Meri Wray [facility] POCT GLUCOSE (AUTOMATED) 2022-08-26 23:06:00 Meri Wray [facility] KETONES URINE 2022-08-26 22:57:00 Robert Lutz [facility] URINALYSIS 2022-08-26 22:57:00 Robert Lutz [facility] POCT GLUCOSE (AUTOMATED) 2022-08-26 22:08:00 Robert Lutz [facility] ABG+COOX+NA+K+GLU+CA2+ 2022-08-26 21:16:00 Robert Lutz [facility] MAGNESIUM 2022-08-26 21:11:00 Robert Lutz [facility] OSMOLALITY, SERUM OR 2022-08-26 21:11:00 Robert Lutz [facility] PLASMA [facility] COMP. METABOLIC PANEL 2022-08-26 21:11:00 Robert Lutz [facility] ([id number]) [facility] LIPID PANEL 2022-08-26 21:11:00 Bolivar [facility] ([id number])(TOTAL [facility] CHOLESTEROL, TRIGLYCERIDES, HDL) CBC WITH DIFF 2022-08-26 21:11:00 Robert Lutz [facility] LOW-DENSITY LIPOPROTEIN, 2022-08-26 21:11:00 Robert Lutz [facility] DIRECT [facility] HB ECG ROUTINE & RHYTHM 2022-08-26 20:34:00 Guido Rucker [facility] STRIP [facility] POCT GLUCOSE (AUTOMATED) 2022-08-26 20:33:00 Doctor Unassigned, No [facility] Name [facility] CONSENT/REFUSAL FOR 2022-08-26 20:18:28 Doctor Unassigned, No [facility] DIAGNOSIS AND TREATMENT Name [facility] POCT GLUCOSE (AUTOMATED) 2022-06-22 03:40:00 Katelyn Ivey [facility] BASIC METABOLIC PANEL 2022-06-22 02:40:00 Katelyn Ivey [facility] (NA, K, CL, CO2, Medical Branch GLUCOSE, BUN, CREATININE, CA) POCT GLUCOSE(AGE 2022-06-22 02:39:00 Katelyn Ivey [facility] >30DAYS) Medical Branch POCT GLUCOSE (AUTOMATED) 2022-06-22 02:38:00 Katelyn Ivey [facility] VBG+VCOOX+NA+K+GLU+CA2+ 2022-06-22 02:08:00 Katelyn Ivey [facility] POCT GLUCOSE (AUTOMATED) 2022-06-22 01:41:00 Katelyn Ivey [facility] XR CHEST 2 VW 2022-06-22 00:47:37 Katelyn Ivey [facility] PHOSPHORUS 2022-06-21 23:49:00 [facility] MAGNESIUM 2022-06-21 23:49:00 Loni [facility] TROPONIN I 2022-06-21 23:49:00 [facility] BASIC METABOLIC PANEL 2022-06-21 23:49:00 Katelyn Ivey [facility] (NA, K, CL, CO2, [facility] GLUCOSE, BUN, CREATININE, CA) CBC WITH DIFF 2022-06-21 23:49:00 [facility] GLYCOSYLATED HEMOGLOBIN 2022-06-21 23:49:00 [facility] (A1C) [facility] URINALYSIS 2022-06-21 23:49:00 Katelyn Ivey [facility] RAPID STREP SCREEN FOR 2022-06-21 23:49:00 Katelyn Ivey [facility] GROUP A [facility] RAPID INFLUENZA A/B 2022-06-21 23:49:00 Katelyn Ivey [facility] N-TERMINAL PRO-BNP 2022-06-21 23:49:00 Katelyn Ivey [facility] COVID-19 (ID NOW RAPID 2022-06-21 23:49:00 Katelyn Ivey [facility] TESTING) Medical Branch CONSENT/REFUSAL FOR 2022-06-21 23:19:40 Doctor Unassigned, [facility] POCT GLUCOSE (AUTOMATED) 2021-10-17 01:49:00 [facility] 2021-10-17 00:41:00 Beatriz Eduardo [facility] >30DAYS) [facility] POCT GLUCOSE (AUTOMATED) 2021-10-17 00:40:00 [facility]LOOD [facility]ULTURE SCREEN 2021-10-16 23:26:00 Beatriz Eduardo [facility] BLOOD CULTURE SCREEN 2021-10-16 23:03:00 Beatriz Eduardo [facility] TROPONIN I 2021-10-16 23:03:00 Beatriz Eduardo [facility] COMP. METABOLIC PANEL 2021-10-16 23:03:00 Beatriz Eduardo [facility] ([id number]) [facility] CBC WITH DIFF 2021-10-16 23:03:00 Beatriz Eduardo [facility] URINALYSIS 2021-10-16 23:03:00 Beatriz Eduardo [facility] N-TERMINAL PRO-BNP 2021-10-16 23:03:00 Beatriz Eduardo [facility] LACTIC ACID WHOLE BLOOD 2021-10-16 23:01:00 Beatriz Eduardo [facility] CT ABDOMEN PELVIS WO 2021-10-16 22:40:13 Beatriz Eduardo [facility] POCT TEST 2021-10-16 22:34:[address] [facility] CONSENT/REFUSAL FOR 2021-10-16 21:34:04 Doctor Unassigned, No Un [facility] DIAGNOSIS AND TREATMENT Name [facility] CT ABDOMEN PELVIS WO 2021-09-22 15:59:44 Jn Miller [facility] POCT TEST 2021-09-22 15:18:00 Jn Miller [facility] COMP. METABOLIC PANEL 2021-09-22 15:16:00 Miller, [facility] ([id number]) Medical Branch CBC WITH DIFF 2021-09-22 15:16:00 Miller, [facility] URINALYSIS 2021-09-22 14:58:00 [facility] CONSENT/REFUSAL FOR 2021-09-22 14:47:03 Doctor Unassigned, No [facility] Name [facility] POCT GLUCOSE (AUTOMATED) 2021-06-18 13:04:00 [facility]EL[facility] WO 2021-06-18 12:58:31 Fozia Jang [facility] POCT TEST 2021-06-18 11:06:[address] [facility] CREATINE KINASE 2021-06-18 10:50:00 Xavier [facility] COMP. METABOLIC PANEL 2021-06-18 10:50:00 Fozia Jang [facility] ([id number]) Medical Branch CBC WITH DIFF 2021-06-18 10:50:00 Fozia Jang [facility] URINALYSIS 2021-06-18 10:50:00 Fozia Jang [facility] RAPID INFLUENZA A/B 2021-06-18 10:50:[address] [facility] COVID-19 (ID NOW RAPID 2021-06-18 10:50:00 Fozia Jang [facility] TESTING) Medical Branch NOTICE OF PRIVACY 2021-06-18 10:24:00 Doctor Unassigned, No [facility] PRACTICES Name Medical Branch CONSENT/REFUSAL FOR 2021-06-18 10:21:45 Doctor [facility]igned, [facility] Name [facility] CT ABDOMEN PELVIS W 2021-05-30 23:52:43 [facility] CONTRAST [facility] CT HEAD WO CONTRAST 2021-05-30 23:52:13 Mary Jay [facility] XR CHEST 1 VW 2021-05-30 22:38:06 [employer] [facility] XR HAND 3+ VW LEFT 2021-05-30 22:38:06 [facility] of [facility] XR FOREARM 2 VW LEFT 2021-05-30 22:28:08 [facility] CONSENT/REFUSAL FOR 2021-05-30 21:39:04 Doctor Unassigned, No Un [facility] DIAGNOSIS AND TREATMENT Name [facility] [id number] Ecg Routine Ecg 2015-12-20 00:00:00 W/least 12 Lds W/i r 83.71 2010-[facility]-05 [facility]:00:00 [facility] Plan of Care Planned Activity Planned Date Details Comments Source Future Scheduled 2023-02-09 Screening for [facility] Test 10:57:52 malignant neoplasm of colon (procedure) [code = 596291021] Future Scheduled 2023-02-09 Screening for [facility] Test 10:57:52 malignant neoplasm of colon (procedure) [code = 994473416] Future Scheduled 2023-02-09 Screening for [facility] Test 10:57:52 malignant neoplasm of colon (procedure) [code = 063188782] Future Scheduled 2023-02-09 COVID-19 VACCINE [facility] Test 10:57:52 (#1) [code = COVID-19 VACCINE (#1)] Future Scheduled 2023-02-09 [facility] 10:57:52 screening (procedure) [code = 305310173] Future Scheduled 2023-02-09 Screening for [facility] Test 10:57:52 malignant neoplasm of cervix (procedure) [code = 771631868] Future Scheduled 2023-02-09 BREAST CANCER [facility] Test 10:57:52 SCREENING [code = BREAST CANCER SCREENING] Future Scheduled 2023-02-09 Screening for [facility] Test 10:57:52 malignant neoplasm of colon (procedure) [code = 434067537] Future Scheduled 2023-02-09 Screening for [facility] Test 10:57:52 malignant neoplasm of colon (procedure) [code = 340500062] Future Scheduled 2023-02-09 [facility]:57:52 [code = INFLUENZA VACCINE] Future Scheduled 2023-02-09 Screening for [facility] Test 10:57:52 malignant neoplasm of colon (procedure) [code = 149945397] Future Scheduled 2023-02-09 Screening for [facility] Test 10:57:52 malignant neoplasm of colon (procedure) [code = 054116818] Future Scheduled 2023-02-09 Screening for [facility] Test 10:57:52 malignant neoplasm of colon (procedure) [code = 801248635] Future Scheduled 2023-02-09 [facility] [facility] Test 10:57:52 (#1) [code = COVID-19 VACCINE (#1)] Future Scheduled 2023-02-09 [facility] Test 10:57:52 screening (procedure) [code = 882862685] Future Scheduled 2023-02-09 Screening for [facility] Test 10:57:52 malignant neoplasm of cervix (procedure) [code = 961462410] Future Scheduled 2023-02-09 BREAST CANCER [facility] Test 10:57:52 SCREENING [code = BREAST CANCER SCREENING] Future Scheduled 2023-02-09 Screening for [facility] Test 10:57:52 malignant neoplasm of colon (procedure) [code = 664455821] Future Scheduled 2023-02-09 Screening for [facility] Test 10:57:52 malignant neoplasm of colon (procedure) [code = 812522360] Future Scheduled 2023-02-09 [facility]ACCINE [facility] 10:57:52 [code = INFLUENZA VACCINE] Future Scheduled 2023-02-09 Screening for [facility] Test 10:57:52 malignant neoplasm of colon (procedure) [code = 253463627] Future Scheduled 2023-02-09 Screening for [facility] Test 10:57:52 malignant neoplasm of colon (procedure) [code = 277607894] Future Scheduled 2023-02-09 Screening for [facility] Test 10:57:52 malignant neoplasm of colon (procedure) [code = 605205071] Future Scheduled 2023-02-09 COVID-[address] [facility] Test 10:57:52 (#1) [code = COVID-19 VACCINE (#1)] Future Scheduled 2023-02-09 [facility] 10:57:52 screening (procedure) [code = 012859435] Future Scheduled 2023-02-09 Screening for [facility] Test 10:57:52 malignant neoplasm of cervix (procedure) [code = 812101378] Future Scheduled 2023-02-09 BREAST CANCER [facility] Test 10:57:52 SCREENING [code = BREAST CANCER SCREENING] Future Scheduled 2023-02-09 Screening for [facility] Test 10:57:52 malignant neoplasm of colon (procedure) [code = 521843887] Future Scheduled 2023-02-09 Screening for [facility] Test 10:57:52 malignant neoplasm of colon (procedure) [code = 852990087] Future Scheduled 2023-02-09 [facility]ACCINE [facility] 10:57:52 [code = INFLUENZA VACCINE] Future Scheduled 2022-12-21 COVID-19 [facility]INE [facility] Test 13:47:21 (#1) [code = COVID-19 VACCINE (#1)] Future Scheduled 2022-12-21 [facility] 13:47:21 screening (procedure) [code = 719926239] Future Scheduled 2022-12-21 Screening for [facility] Test 13:47:21 malignant neoplasm of cervix (procedure) [code = 797970784] Future Scheduled 2022-12-21 BREAST CANCER [facility] Test 13:47:21 SCREENING [code = BREAST CANCER SCREENING] Future Scheduled 2022-12-21 [facility]INE [facility] 13:47:21 [code = INFLUENZA VACCINE] Future Scheduled 2022-10-29 [facility] 14:01:19 (#1) [code = COVID-19 VACCINE (#1)] Future Scheduled 2022-10-29 [facility] Test 14:01:19 screening (procedure) [code = 064476676] Future Scheduled 2022-10-29 Screening for [facility] Test 14:01:19 malignant neoplasm of cervix (procedure) [code = 024607573] Future Scheduled 2022-10-29 BREAST CANCER [facility] Test 14:01:19 SCREENING [code = BREAST CANCER SCREENING] Future Scheduled 2022-10-29 [facility]ZA [facility]ACCINE [facility] 14:01:19 [code = INFLUENZA VACCINE] Future Scheduled 2022-10-29 COVID-[address] [facility] Test 14:01:19 (#1) [code = COVID-19 VACCINE (#1)] Future Scheduled 2022-10-29 [facility] 14:01:19 screening (procedure) [code = 144685523] Future Scheduled 2022-10-29 Screening for [facility] Test 14:01:19 malignant neoplasm of cervix (procedure) [code = 790855202] Future Scheduled 2022-10-29 BREAST CANCER [facility] Test 14:01:19 SCREENING [code = BREAST CANCER SCREENING] Future Scheduled 2022-10-29 [facility]ZA [facility]ACCINE [facility] 14:01:19 [code = INFLUENZA VACCINE] Future Scheduled 2022-06-30 [facility] 13:24:39 (#1) [code = COVID-19 VACCINE (#1)] Future Scheduled 2022-06-30 [facility] 13:24:39 screening (procedure) [code = 974767980] Future Scheduled 2022-06-30 Screening for [facility] Test 13:24:39 malignant neoplasm of cervix (procedure) [code = 279474501] Future Scheduled 2022-06-30 BREAST CANCER [facility] Test 13:24:39 SCREENING [code = BREAST CANCER SCREENING] Future Scheduled 2022-06-30 [facility] 13:24:39 [code = INFLUENZA VACCINE] Future Scheduled 2022-06-30 [facility] 13:24:39 (#1) [code = COVID-19 VACCINE (#1)] Future Scheduled 2022-06-30 [facility] 13:24:39 screening (procedure) [code = 866335603] Future Scheduled 2022-06-30 Screening for [facility] Test 13:24:39 malignant neoplasm of cervix (procedure) [code = 924157123] Future Scheduled 2022-06-30 BREAST CANCER [facility] Test 13:24:39 SCREENING [code = BREAST CANCER SCREENING] Future Scheduled 2022-06-30 [facility]ZA [facility]ACCINE [facility] 13:24:39 [code = INFLUENZA VACCINE] Future Scheduled 2022-06-30 [facility] 13:24:39 (#1) [code = COVID-19 VACCINE (#1)] Future Scheduled 2022-06-30 [facility] 13:24:39 screening (procedure) [code = 240420781] Future Scheduled 2022-06-30 Screening for [facility] Test 13:24:39 malignant neoplasm of cervix (procedure) [code = 365169786] Future Scheduled 2022-06-30 BREAST CANCER [facility] Test 13:24:39 SCREENING [code = BREAST CANCER SCREENING] Future Scheduled 2022-06-30 [facility]ACCINE [facility] 13:24:39 [code = INFLUENZA VACCINE] Future Scheduled 2022-05-12 HE[facility]ITIS B [facility] Test 14:10:29 VACCINES (1 of 3 - 3-dose series) [code = HEPATITIS B VACCINES (1 of 3 - 3-dose series)] Future Scheduled 2022-05-12 [facility] (#[facility]) [code = COVID-19 VACCINE (#1)] Future Scheduled 2022-05-12 [facility] 14:10:29 screening (procedure) [code = 186296028] Future Scheduled 2022-05-12 Screening for [facility] Test 14:10:29 malignant neoplasm of cervix (procedure) [code = 134001673] Future Scheduled 2022-05-12 BREAST CANCER [facility] Test 14:10:29 SCREENING [code = BREAST CANCER SCREENING] Future Scheduled 2022-05-12 [facility]FLU[facility]ZA VACCINE [facility] 14:10:29 [code = INFLUENZA VACCINE] Future Scheduled 2022-05-12 [facility] 14:10:29 VACCINES (1 of 3 - 3-dose series) [code = HEPATITIS B VACCINES (1 of 3 - 3-dose series)] Future Scheduled 2022-05-12 [facility]:10[facility]29 (#1) [code = COVID-19 VACCINE (#1)] Future Scheduled 2022-05-12 [facility] Test 14:10:29 screening (procedure) [code = 303817791] Future Scheduled 2022-05-12 Screening for [facility] Test 14:10:29 malignant neoplasm of cervix (procedure) [code = 399088479] Future Scheduled 2022-05-12 BREAST CANCER [facility] Test 14:10:29 SCREENING [code = BREAST CANCER SCREENING] Future Scheduled 2022-05-12 INFLUENZA VACCINE Method [facility] Test 14:10:29 [code = INFLUENZA VACCINE] Future Scheduled 2022-05-12 [facility]IS [facility] 14:10:29 VACCINES (1 of 3 - 3-dose series) [code = HEPATITIS B VACCINES (1 of 3 - 3-dose series)] Future Scheduled 2022-05-12 [facility] 14:10[facility]29 (#1) [code = COVID-19 VACCINE (#1)] Future Scheduled 2022-05-12 [facility] Test 14:10:29 screening (procedure) [code = 379674522] Future Scheduled 2022-05-12 Screening for [facility] Test 14:10:29 malignant neoplasm of cervix (procedure) [code = 936800794] Future Scheduled 2022-05-12 BREAST CANCER [facility] Test 14:10:29 SCREENING [code = BREAST CANCER SCREENING] Future Scheduled 2022-05-12 INFLUENZA VACCINE Method [facility] Test 14:10:29 [code = INFLUENZA VACCINE] Future Scheduled 2022-05-12 [facility]IS B [facility] 14:10:29 VACCINES (1 of 3 - 3-dose series) [code = HEPATITIS B VACCINES (1 of 3 - 3-dose series)] Future Scheduled 2022-05-12 COVID-19 VACCINE [facility] Test 14:10:29 (#1) [code = COVID-19 VACCINE (#1)] Future Scheduled 2022-05-12 [facility] Test 14:10:29 screening (procedure) [code = 697136227] Future Scheduled 2022-05-12 Screening for [facility] Test 14:10:29 malignant neoplasm of cervix (procedure) [code = 753854353] Future Scheduled 2022-05-12 BREAST CANCER [facility] Test 14:10:29 SCREENING [code = BREAST CANCER SCREENING] Future Scheduled 2022-05-12 INFLUENZA VACCINE Method [facility] Test 14:10:29 [code = INFLUENZA VACCINE] Future Scheduled 2022-04-12 [facility] Test 08:53:27 screening (procedure) [code = 276472084] Future Scheduled 2022-04-12 Screening for [facility] Test 08:53:27 malignant neoplasm of cervix (procedure) [code = 170828988] Future Scheduled 2022-04-12 BREAST CANCER [facility] Test 08:53:27 SCREENING [code = BREAST CANCER SCREENING] Future Scheduled 2022-04-12 INFLUENZA VACCINE [facility] Test 08:53:27 [code = INFLUENZA VACCINE] Future Scheduled 2022-04-12 [facility]IS B [facility] 08:53:27 VACCINES (1 of 3 - 3-dose series) [code = HEPATITIS B VACCINES (1 of 3 - 3-dose series)] Future Scheduled 2022-04-12 [facility]27 (#1) [code = COVID-19 VACCINE (#1)] Future Scheduled 2022-03-16 [facility]ITIS B [facility] Test 11:35:00 VACCINES (1 of 3 - 3-dose series) [code = HEPATITIS B VACCINES (1 of 3 - 3-dose series)] Future Scheduled 2022-03-16 [facility] 11:35[facility]00 (#1) [code = COVID-19 VACCINE (#1)] Future Scheduled 2022-03-16 [facility] Test 11:35:00 screening (procedure) [code = 951159536] Future Scheduled 2022-03-16 Screening for [facility] Test 11:35:00 malignant neoplasm of cervix (procedure) [code = 058404056] Future Scheduled 2022-03-16 BREAST CANCER [facility] [facility] Test 11:35:00 SCREENING [code = BREAST CANCER SCREENING] Future Scheduled 2022-03-16 INFLUENZA VACCINE Method [facility] Test 11:35:00 [code = INFLUENZA VACCINE] Future Scheduled 2022-03-16 [facility] 11:35:00 VACCINES (1 of 3 - 3-dose series) [code = HEPATITIS B VACCINES (1 of 3 - 3-dose series)] Future [facility] 2022-03-16 [facility] (#[facility] [code = COVID-19 VACCINE (#1)] Future Scheduled 2022-03-16 Hepatitis C [facility] Test 11:35:00 screening (procedure) [code = [id number]] Future Scheduled 2022-03-16 Screening for [facility] Test 11:35:00 malignant neoplasm of cervix (procedure) [code = [id number]] Future Scheduled 2022-03-16 BREAST CANCER [facility] Test 11:35:00 SCREENING [code = BREAST CANCER SCREENING] Future Scheduled 2022-03-16 INFLUENZA VACCINE [facility] Test 11:35:00 [code = INFLUENZA VACCINE] Future Scheduled 2022-03-09 [facility]ITIS B [facility] Test 12:08:14 VACCINES (1 of 3 - 3-dose series) [code = HEPATITIS B VACCINES (1 of 3 - 3-dose series)] Future Scheduled 2022-03-09 [facility] (#1) [code = COVID-19 VACCINE (#1)] Future Scheduled 2022-03-09 [facility] Test 12:08:14 screening (procedure) [code = [id number]] Future Scheduled 2022-03-09 Screening for [facility] Test 12:08:14 malignant neoplasm of cervix (procedure) [code = [id number]] Future Scheduled 2022-03-09 BREAST CANCER [facility] Test 12:08:14 SCREENING [code = BREAST CANCER SCREENING] Future Scheduled 2022-03-09 INFLUENZA VACCINE Method [facility] Test 12:08:14 [code = INFLUENZA VACCINE] Future Scheduled 2022-03-09 HEPATITIS B [facility] Test 12:08:14 VACCINES (1 of 3 - 3-dose series) [code = HEPATITIS B VACCINES (1 of 3 - 3-dose series)] Future Scheduled 2022-03-09 [facility] (#1) [code = COVID-19 VACCINE (#1)] Future Scheduled 2022-03-09 [facility]atitis C [facility] Test 12:08:14 screening (procedure) [code = [id number]] Future Scheduled 2022-03-09 Screening for [facility] Test 12:08:14 malignant neoplasm of cervix (procedure) [code = 507297949] Future Scheduled 2022-03-09 BREAST CANCER [facility] Test 12:08:14 SCREENING [code = BREAST CANCER SCREENING] Future Scheduled 2022-03-09 [facility]:14 [code = INFLUENZA VACCINE] Future Scheduled 2022-03-09 HEPATITIS B [facility] Test 12:08:14 VACCINES (1 of 3 - 3-dose series) [code = HEPATITIS B VACCINES (1 of 3 - 3-dose series)] Future [facility] 2022-03-09 [facility] (#1) [code = COVID-19 VACCINE (#1)] Future Scheduled 2022-03-09 [facility] C [facility] Test 12:08:14 screening (procedure) [code = 830296050] Future Scheduled 2022-03-09 Screening for [facility] Test 12:08:14 malignant neoplasm of cervix (procedure) [code = 421571653] Future Scheduled 2022-03-09 BREAST CANCER [facility] Test 12:08:14 SCREENING [code = BREAST CANCER SCREENING] Future Scheduled 2022-03-09 INFLUENZA VACCINE [facility] Test 12:08:14 [code = INFLUENZA VACCINE] Goal Plan of Care Note [code = 91519-2] Goal Plan of Care Note [code = 63521-2] Goal Plan of Care Note [code = 13206-6] Goal Plan of Care Note [code = 43936-7] Goal Plan of Care Note [code = 88697-9] Goal Plan of Care Note [code = 38619-3] Goal Plan of Care Note [code = 03324-8] Goal Plan of Care Note [code = 15159-4] Goal Plan of Care Note [code = 64735-7] Goal Plan of Care Note [code = 52441-7] Goal Plan of Care Note [code = 54741-2] Goal Plan of Care Note [code = 62879-6] Goal Plan of Care Note [code = 63284-7] Goal Plan of Care Note [code = 57701-2] Goal Plan of Care Note [code = 01386-1] Goal Plan of Care Note [code = 95648-8] Goal Plan of Care Note [code = 17658-0] Goal Plan of Care Note [code = 79276-3] Goal Plan of Care Note [code = 41152-7] Goal Plan of Care Note [code = 22010-7] Goal Plan of Care Note [code = 24172-8] Goal Plan of Care Note [code = 02827-4] Goal Plan of Care Note [code = 72720-4] Goal Plan of Care Note [code = 52562-9] Goal Plan of Care Note [code = 84526-9] Goal Plan of Care Note [code = 26581-5] Goal Plan of Care Note [code = 48520-5] Goal Plan of Care Note [code = 05703-7] Goal Plan of Care Note [code = 60956-8] Goal Plan of Care Note [code = 97178-0] Goal Plan of Care Note [code = 15506-6] Goal Plan of Care Note [code = 06801-9] Goal Plan of Care Note [code = 47695-3] Goal Plan of Care Note [code = 91817-7] Goal Plan of Care Note [code = 53314-6] Goal Plan of Care Note [code = 34684-1] Goal Plan of Care Note [code = 07235-2] Goal Plan of Care Note [code = 16329-6] Goal Plan of Care Note [code = 55576-3] Goal Plan of Care Note [code = 02106-2] Goal Plan of Care Note [code = 21184-3] Goal Plan of Care Note [code = 84652-6] Goal Plan of Care Note [code = 15176-6] Goal Plan of Care Note [code = 86307-2] Goal Plan of Care Note [code = 65017-0] Goal Plan of Care Note [code = 81849-3] Goal Plan of Care Note [code = 85728-3] Goal Plan of Care Note [code = 89350-9] Goal Plan of Care Note [code = 03538-1] Goal Plan of Care Note [code = 22463-9] Goal Plan of Care Note [code = 96686-6] Goal Plan of Care Note [code = 22452-3] Goal Plan of Care Note [code = 49020-0] Goal Plan of Care Note [code = 06230-1] Goal Plan of Care Note [code = 18193-3] Goal Plan of Care Note [code = 01512-6] Goal Plan of Care Note [code = 57260-5] Goal Plan of Care Note [code = 11967-0] Goal Plan of Care Note [code = 16868-9] Goal Plan of Care Note [code = 51422-4] Goal Plan of Care Note [code = 34564-3] Goal Plan of Care Note [code = 46953-9] Goal Plan of Care Note [code = 14031-8] Goal Plan of Care Note [code = 95117-7] Goal Plan of Care Note [code = 31999-7] Goal Plan of Care Note [code = 92586-8] Goal Plan of Care Note [code = 67259-6] Goal Plan of Care Note [code = 82664-4] Goal Plan of Care Note [code = 82623-7] Goal Plan of Care Note [code = 09554-3] Goal Plan of Care Note [code = 51747-5] Goal Plan of Care Note [code = 18672-8] Goal Plan of Care Note [code = 71754-3] Goal Plan of Care Note [code = 88538-7] Goal Plan of Care Note [code = 52497-9] Goal Plan of Care Note [code = 76200-5] Goal Plan of Care Note [code = 92557-6] Goal Plan of Care Note [code = 07270-8] Goal Plan of Care Note [code = 17636-4] Goal Plan of Care Note [code = 97430-5] Goal Plan of Care Note [code = 42484-1] Goal Plan of Care Note [code = 96288-7] Goal Plan of Care Note [code = 96965-3] Goal Plan of Care Note [code = 86335-4] Goal Plan of Care Note [code = 31377-9] Goal Plan of Care Note [code = 56676-9] Goal Plan of Care Note [code = 99752-9] Goal Plan of Care Note [code = 31181-9] Goal Plan of Care Note [code = 51985-5] Goal Plan of Care Note [code = 41126-7] Goal Plan of Care Note [code = 89875-6] Goal Plan of Care Note [code = 60853-1] Goal Plan of Care Note [code = 94121-2] Goal Plan of Care Note [code = 60463-8] Goal Plan of Care Note [code = 50460-7] Goal Plan of Care Note [code = 64821-0] Goal Plan of Care Note [code = 13342-7] Goal Plan of Care Note [code = 11288-9] Goal Plan of Care Note [code = 45706-1] Goal Plan of Care Note [code = 61729-0] Goal Plan of Care Note [code = 49708-1] Goal Plan of Care Note [code = 25717-5] Goal Plan of Care Note [code = 72444-4] Goal Plan of Care Note [code = 45960-4] Goal Plan of Care Note [code = 08038-4] Goal Plan of Care Note [code = 47581-6] Goal Plan of Care Note [code = 01882-5] Goal Plan of Care Note [code = 32459-3] Goal Plan of Care Note [code = 48933-9] Goal Plan of Care Note [code = 12697-9] Goal Plan of Care Note [code = 84289-9] Goal Plan of Care Note [code = 92148-2] Goal Plan of Care Note [code = 19540-9] Goal Plan of Care Note [code = 66140-1] Goal Plan of Care Note [code = 28040-6] Goal Plan of Care Note [code = 12572-0] Goal Plan of Care Note [code = 72627-6] Goal Plan of Care Note [code = 57774-0] Goal Plan of Care Note [code = 83353-1] Goal Plan of Care Note [code = 49327-5] Goal Plan of Care Note [code = 05411-7] Goal Plan of Care Note [code = 07300-9] Goal Plan of Care Note [code = 71647-2] Goal Plan of Care Note [code = 52879-3] Goal Plan of Care Note [code = 62354-6] Goal Plan of Care Note [code = 88853-6] Goal Plan of Care Note [code = 05131-9] Goal Plan of Care Note [code = 72169-8] Goal Plan of Care Note [code = 27463-3] Goal Plan of Care Note [code = 64959-8] Goal Plan of Care Note [code = 30737-5] Goal Plan of Care Note [code = 49168-0] Goal Plan of Care Note [code = 72281-1] Goal Plan of Care Note [code = 41073-1] Goal Plan of Care Note [code = 78705-3] Goal Plan of Care Note [code = 94622-2] Goal Plan of Care Note [code = 89327-9] Goal Plan of Care Note [code = 53151-4] Goal Plan of Care Note [code = 03280-0] Goal Plan of Care Note [code = 38736-0] Goal Plan of Care Note [code = 17146-3] Goal Plan of Care Note [code = 65955-0] Goal Plan of Care Note [code = 47425-5] Goal Plan of Care Note [code = 19992-5] Goal Plan of Care Note [code = 83879-6] Goal Plan of Care Note [code = 21966-2] Goal Plan of Care Note [code = 08677-7] Goal Plan of Care Note [code = 87802-6] Goal Plan of Care Note [code = 66044-5] Goal Plan of Care Note [code = 33223-2] Goal Plan of Care Note [code = 33033-3] Goal Plan of Care Note [code = 66577-1] Goal Plan of Care Note [code = 05293-7] Goal Plan of Care Note [code = 39703-7] Goal Plan of Care Note [code = 58605-2] Goal Plan of Care Note [code = 63266-3] Goal Plan of Care Note [code = 24930-4] Goal Plan of Care Note [code = 71652-5] Goal Plan of Care Note [code = 59056-4] Goal Plan of Care Note [code = 34679-0] Goal Plan of Care Note [code = 43719-4] Goal Plan of Care Note [code = 09769-5] Goal Plan of Care Note [code = 82757-5] Goal Plan of Care Note [code = 40786-7] Goal Plan of Care Note [code = 42252-7] Goal Plan of Care Note [code = 37922-8] Goal Plan of Care Note [code = 59581-4] Goal Plan of Care Note [code = 77905-4] Goal Plan of Care Note [code = 14903-8] Goal Plan of Care Note [code = 88409-1] Goal Plan of Care Note [code = 43440-0] Goal Plan of Care Note [code = 19083-0] Goal Plan of Care Note [code = 46196-8] Goal Plan of Care Note [code = 66831-8] Goal Plan of Care Note [code = 80886-8] Goal Plan of Care Note [code = 83889-2] Goal Plan of Care Note [code = 23241-2] Goal Plan of Care Note [code = 43393-8] Goal Plan of Care Note [code = 59133-3] Goal Plan of Care Note [code = 58558-0] Goal Plan of Care Note [code = 38903-0] Goal Plan of Care Note [code = 51108-9] Goal Plan of Care Note [code = 23598-9] Goal Plan of Care Note [code = 17495-2] Goal Plan of Care Note [code = 84031-6] Goal Plan of Care Note [code = 50744-7] Goal Plan of Care Note [code = 13884-2] Goal Plan of Care Note [code = 02372-3] Goal Plan of Care Note [code = 69637-8] Goal Plan of Care Note [code = 94567-4] Goal Plan of Care Note [code = 98555-9] Goal Plan of Care Note [code = 32629-2] Goal Plan of Care Note [code = 19270-7] Goal Plan of Care Note [code = 80131-9] Goal Plan of Care Note [code = 47911-7] Goal Plan of Care Note [code = 58548-2] Goal Plan of Care Note [code = 95930-7] Goal Plan of Care Note [code = 84824-7] Goal Plan of Care Note [code = 30045-4] Goal Plan of Care Note [code = 76711-3] Goal Plan of Care Note [code = 33150-0] Goal Plan of Care Note [code = 94154-1] Goal Plan of Care Note [code = 91501-7] Goal Plan of Care Note [code = 59772-4] Goal Plan of Care Note [code = 30859-0] Goal Plan of Care Note [code = 11524-8] Goal Plan of Care Note [code = 74722-4] Goal Plan of Care Note [code = 46770-5] Goal Plan of Care Note [code = 00938-1] Goal Plan of Care Note [code = 48881-2] Goal Plan of Care Note [code = 09716-1] Goal Plan of Care Note [code = 86173-6] Goal Plan of Care Note [code = 72006-9] Goal Plan of Care Note [code = 56294-0] Goal Plan of Care Note [code = 67938-0] Goal Plan of Care Note [code = 87710-7] Goal Plan of Care Note [code = 39049-2] Goal Plan of Care Note [code = 49099-7] Goal Plan of Care Note [code = 50757-2] Goal Plan of Care Note [code = 12487-1] Goal Plan of Care Note [code = 97396-5] Goal Plan of Care Note [code = 70037-3] Goal Plan of Care Note [code = 90273-4] Goal Plan of Care Note [code = 71356-3] Goal Plan of Care Note [code = 74767-3] Goal Plan of Care Note [code = 27129-9] Goal Plan of Care Note [code = 41548-0] Goal Plan of Care Note [code = 92242-7] Goal Plan of Care Note [code = 48421-0] Goal Plan of Care Note [code = 57284-3] Goal Plan of Care Note [code = 53444-4] Goal Plan of Care Note [code = 51913-1] Goal Plan of Care Note [code = 86874-9] Goal Plan of Care Note [code = 90381-6] Goal Plan of Care Note [code = 53582-7] Goal Plan of Care Note [code = 34350-4] Goal Plan of Care Note [code = 28987-9] Goal Plan of Care Note [code = 01982-9] Goal Plan of Care Note [code = 69153-2] Goal Plan of Care Note [code = 95153-5] Goal Plan of Care Note [code = 18917-2] Goal Plan of Care Note [code = 35003-7] Goal Plan of Care Note [code = 92488-0] Goal Plan of Care Note [code = 14989-3] Goal Plan of Care Note [code = 09163-7] Goal Plan of Care Note [code = 42944-4] Goal Plan of Care Note [code = 58859-5] Goal Plan of Care Note [code = 54947-3] Goal Plan of Care Note [code = 39666-8] Goal Plan of Care Note [code = 00418-8] Goal Plan of Care Note [code = 22118-6] Goal Plan of Care Note [code = 93521-0] Goal Plan of Care Note [code = 26767-9] Goal Plan of Care Note [code = 47155-8] Goal Plan of Care Note [code = 14351-3] Goal Plan of Care Note [code = 01937-9] Goal Plan of Care Note [code = 71056-7] Goal Plan of Care Note [code = 33420-6] Goal Plan of Care Note [code = 15303-6] Goal Plan of Care Note [code = 13498-2] Goal Plan of Care Note [code = 00630-7] Goal Plan of Care Note [code = 44117-8] Goal Plan of Care Note [code = 51011-3] Goal Plan of Care Note [code = 64015-7] Goal Plan of Care Note [code = 10333-8] Goal Plan of Care Note [code = 22517-4] Goal Plan of Care Note [code = 61634-3] Goal Plan of Care Note [code = 63651-9] Goal Plan of Care Note [code = 16387-7] Goal Plan of Care Note [code = 31861-3] Goal Plan of Care Note [code = 25135-9] Goal Plan of Care Note [code = 19674-7] Goal Plan of Care Note [code = 42995-1] Goal Plan of Care Note [code = 98936-4] Goal Plan of Care Note [code = 47345-6] Goal Plan of Care Note [code = 68878-3] Goal Plan of Care Note [code = 81843-0] Goal Plan of Care Note [code = 94954-5] Goal Plan of Care Note [code = 73819-8] Goal Plan of Care Note [code = 33088-9] Goal Plan of Care Note [code = 53134-2] Goal Plan of Care Note [code = 26549-0] Goal Plan of Care Note [code = 21707-6] Goal Plan of Care Note [code = 42878-8] Goal Plan of Care Note [code = 38627-5] Goal Plan of Care Note [code = 26504-4] Goal Plan of Care Note [code = 61793-5] Goal Plan of Care Note [code = 34360-9] Goal Plan of Care Note [code = 96516-0] Goal Plan of Care Note [code = 93470-4] Goal Plan of Care Note [code = 15978-9] Goal Plan of Care Note [code = 54699-7] Goal Plan of Care Note [code = 31454-5] Goal Plan of Care Note [code = 51894-2] Goal Plan of Care Note [code = 23937-1] Goal Plan of Care Note [code = 46833-3] Goal Plan of Care Note [code = 59280-8] Goal Plan of Care Note [code = 69391-0] Goal Plan of Care Note [code = 68933-2] Goal Plan of Care Note [code = 26609-0] Goal Plan of Care Note [code = 15854-2] Goal Plan of Care Note [code = 26638-3] Goal Plan of Care Note [code = 83267-8] Goal Plan of Care Note [code = 59688-2] Goal Plan of Care Note [code = 90846-9] Goal Plan of Care Note [code = 21055-5] Goal Plan of Care Note [code = 06276-7] Goal Plan of Care Note [code = 39658-7] Goal Plan of Care Note [code = 18522-5] Goal Plan of Care Note [code = 19088-4] Goal Plan of Care Note [code = 99325-1] Goal Plan of Care Note [code = 22852-1] Goal Plan of Care Note [code = 25193-9] Goal Plan of Care Note [code = 25214-4] Goal Plan of Care Note [code = 97416-2] Goal Plan of Care Note [code = 21367-7] Goal Plan of Care Note [code = 12190-8] Goal Plan of Care Note [code = 12126-4] Goal Plan of Care Note [code = 65048-1] Goal Plan of Care Note [code = 56269-2] Goal Plan of Care Note [code = 89648-2] Goal Plan of Care Note [code = 53993-0] Goal Plan of Care Note [code = 62824-1] Goal Plan of Care Note [code = 06884-0] Goal Plan of Care Note [code = 51910-3] Goal Plan of Care Note [code = 60287-7] Goal Plan of Care Note [code = 49938-8] Goal Plan of Care Note [code = 70158-7] Goal Plan of Care Note [code = 38685-2] Goal Plan of Care Note [code = 75225-4] Goal Plan of Care Note [code = 64867-3] Goal Plan of Care Note [code = 18758-0] Goal Plan of Care Note [code = 64119-2] Goal Plan of Care Note [code = 22507-2] Goal Plan of Care Note [code = 23318-6] Goal Plan of Care Note [code = 43906-9] Goal Plan of Care Note [code = 86635-6] Goal Plan of Care Note [code = 50607-4] Goal Plan of Care Note [code = 06836-5] Goal Plan of Care Note [code = 75092-0] Goal Plan of Care Note [code = 36568-2] Goal Plan of Care Note [code = 37872-9] Goal Plan of Care Note [code = 21285-2] Goal Plan of Care Note [code = 61390-5] Goal Plan of Care Note [code = 93009-7] Goal Plan of Care Note [code = 46734-3] Goal Plan of Care Note [code = 86557-4] Goal Plan of Care Note [code = 48598-7] Goal Plan of Care Note [code = 05571-8] Goal Plan of Care Note [code = 71110-4] Goal Plan of Care Note [code = 44063-1] Goal Plan of Care Note [code = 80295-3] Goal Plan of Care Note [code = 30608-8] Goal Plan of Care Note [code = 24585-7] Goal Plan of Care Note [code = 71466-2] Goal Plan of Care Note [code = 47176-9] Goal Plan of Care Note [code = 85634-1] Goal Plan of Care Note [code = 93688-6] Goal Plan of Care Note [code = 61990-5] Goal Plan of Care Note [code = 53268-4] Goal Plan of Care Note [code = 65721-9] Goal Plan of Care Note [code = 03428-3] Goal Plan of Care Note [code = 36944-2] Goal Plan of Care Note [code = 36225-8] Goal Plan of Care Note [code = 76458-1] Goal Plan of Care Note [code = 71632-2] Goal Plan of Care Note [code = 93003-1] Goal Plan of Care Note [code = 97354-8] Goal Plan of Care Note [code = 82525-3] Goal Plan of Care Note [code = 41053-2] Goal Plan of Care Note [code = 37300-3] Goal Plan of Care Note [code = 71608-0] Goal Plan of Care Note [code = 61893-3] Goal Plan of Care Note [code = 47571-6] Goal Plan of Care Note [code = 95938-6] Goal Plan of Care Note [code = 26369-6] Goal Plan of Care Note [code = 75597-1] Goal Plan of Care Note [code = 95687-5] Goal Plan of Care Note [code = 91825-0] Goal Plan of Care Note [code = 19644-9] Goal Plan of Care Note [code = 41462-9] Goal Plan of Care Note [code = 86214-1] Goal Plan of Care Note [code = 71490-6] Goal Plan of Care Note [code = 93773-9] Goal Plan of Care Note [code = 92741-1] Goal Plan of Care Note [code = 72831-7] Goal Plan of Care Note [code = 82321-7] Goal Plan of Care Note [code = 03074-6] Goal Plan of Care Note [code = 16789-7] Goal Plan of Care Note [code = 62663-1] Goal Plan of Care Note [code = 85356-1] Goal Plan of Care Note [code = 17691-6] Goal Plan of Care Note [code = 58991-2] Goal Plan of Care Note [code = 86944-2] Goal Plan of Care Note [code = 02629-0] Goal Plan of Care Note [code = 05290-1] Goal Plan of Care Note [code = 53286-8] Goal Plan of Care Note [code = 12174-9] Goal Plan of Care Note [code = 47909-9] Goal Plan of Care Note [code = 27449-5] Goal Plan of Care Note [code = 16074-6] Goal Plan of Care Note [code = 24933-1] Goal Plan of Care Note [code = 10624-1] Goal Plan of Care Note [code = 15530-0] Goal Plan of Care Note [code = 02834-9] Goal Plan of Care Note [code = 04147-8] Goal Plan of Care Note [code = 61533-9] Goal Plan of Care Note [code = 24566-4] Goal Plan of Care Note [code = 09304-0] Goal Plan of Care Note [code = 24101-3] Goal Plan of Care Note [code = 50975-2] Goal Plan of Care Note [code = 28027-2] Goal Plan of Care Note [code = 28692-9] Goal Plan of Care Note [code = 92035-9] Goal Plan of Care Note [code = 61040-9] Goal Plan of Care Note [code = 95239-6] Goal Plan of Care Note [code = 02761-0] Goal Plan of Care Note [code = 98407-5] Goal Plan of Care Note [code = 62859-8] Goal Plan of Care Note [code = 94765-9] Goal Plan of Care Note [code = 65808-3] Goal Plan of Care Note [code = 76475-8] Goal Plan of Care Note [code = 37449-1] Goal Plan of Care Note [code = 73076-9] Goal Plan of Care Note [code = 11676-1] Goal Plan of Care Note [code = 62692-0] Goal Plan of Care Note [code = 69082-1] Goal Plan of Care Note [code = 08563-3] Goal Plan of Care Note [code = 07677-5] Goal Plan of Care Note [code = 32795-5] Goal Plan of Care Note [code = 18205-5] Goal Plan of Care Note [code = 71499-3] Goal Plan of Care Note [code = 32056-5] Goal Plan of Care Note [code = 29220-1] Goal Plan of Care Note [code = 44127-5] Goal Plan of Care Note [code = 57493-5] Goal Plan of Care Note [code = 06999-0] Goal Plan of Care Note [code = 42560-0] Goal Plan of Care Note [code = 38601-3] Goal Plan of Care Note [code = 78183-3] Goal Plan of Care Note [code = 12227-2] Goal Plan of Care Note [code = 16105-8] Goal Plan of Care Note [code = 18248-9] Goal Plan of Care Note [code = 19697-3] Goal Plan of Care Note [code = 54064-5] Goal Plan of Care Note [code = 87921-2] Goal Plan of Care Note [code = 52842-0] Goal Plan of Care Note [code = 91188-2] Goal Plan of Care Note [code = 66480-3] Goal Plan of Care Note [code = 99192-8] Goal Plan of Care Note [code = 94038-8] Goal Plan of Care Note [code = 48665-2] Goal Plan of Care Note [code = 59626-7] Goal Plan of Care Note [code = 83213-2] Goal Plan of Care Note [code = 08799-0] Goal Plan of Care Note [code = 70231-8] Goal Plan of Care Note [code = 69903-4] Goal Plan of Care Note [code = 60782-7] Goal Plan of Care Note [code = 35153-2] Goal Plan of Care Note [code = 69019-5] Goal Plan of Care Note [code = 91987-7] Goal Plan of Care Note [code = 38886-5] Goal Plan of Care Note [code = 09790-4] Goal Plan of Care Note [code = 42429-5] Goal Plan of Care Note [code = 65018-5] Goal Plan of Care Note [code = 40843-6] Goal Plan of Care Note [code = 02415-2] Goal Plan of Care Note [code = 83379-3] Goal Plan of Care Note [code = 68740-5] Goal Plan of Care Note [code = 53326-0] Goal Plan of Care Note [code = 45224-7] Goal Plan of Care Note [code = 41561-2] Goal Plan of Care Note [code = 16042-1] Goal Plan of Care Note [code = 68450-2] Goal Plan of Care Note [code = 35423-3] Goal Plan of Care Note [code = 23183-2] Goal Plan of Care Note [code = 07287-8] Goal Plan of Care Note [code = 83815-2] Goal Plan of Care Note [code = 39725-0] Goal Plan of Care Note [code = 19330-6] Goal Plan of Care Note [code = 96605-6] Goal Plan of Care Note [code = 14749-1] Goal Plan of Care Note [code = 31959-8] Goal Plan of Care Note [code = 21944-6] Goal Plan of Care Note [code = 00799-0] Goal Plan of Care Note [code = 97118-0] Goal Plan of Care Note [code = 13208-9] Goal Plan of Care Note [code = 63614-1] Goal Plan of Care Note [code = 43558-5] Goal Plan of Care Note [code = 61812-5] Goal Plan of Care Note [code = 71607-0] Goal Plan of Care Note [code = 18655-8] Goal Plan of Care Note [code = 88396-1] Goal Plan of Care Note [code = 28543-0] Goal Plan of Care Note [code = 89552-7] Goal Plan of Care Note [code = 59368-1] Goal Plan of Care Note [code = 55643-4] Goal Plan of Care Note [code = 93729-2] Goal Plan of Care Note [code = 90904-4] Goal Plan of Care Note [code = 21147-4] Goal Plan of Care Note [code = 90705-3] Goal Plan of Care Note [code = 43661-0] Goal Plan of Care Note [code = 63237-3] Goal Plan of Care Note [code = 84996-1] Goal Plan of Care Note [code = 09643-4] Goal Plan of Care Note [code = 50801-4] Goal Plan of Care Note [code = 00016-9] Goal Plan of Care Note [code = 42127-5] Goal Plan of Care Note [code = 96963-6] Goal Plan of Care Note [code = 25834-1] Goal Plan of Care Note [code = 09147-4] Goal Plan of Care Note [code = 76401-1] Goal Plan of Care Note [code = 90195-9] Goal Plan of Care Note [code = 82302-1] Goal Plan of Care Note [code = 14091-0] Goal Plan of Care Note [code = 29894-5] Goal Plan of Care Note [code = 81957-6] Goal Plan of Care Note [code = 16065-1] Goal Plan of Care Note [code = 39969-0] Goal Plan of Care Note [code = 42891-7] Goal Plan of Care Note [code = 93481-2] Goal Plan of Care Note [code = 14888-7] Goal Plan of Care Note [code = 88469-1] Goal Plan of Care Note [code = 97133-2] Goal Plan of Care Note [code = 03135-5] Goal Plan of Care Note [code = 11429-2] Goal Plan of Care Note [code = 50519-7] Goal Plan of Care Note [code = 92446-4] Goal Plan of Care Note [code = 13169-1] Goal Plan of Care Note [code = 59643-3] Goal Plan of Care Note [code = 33458-8] Goal Plan of Care Note [code = 67318-6] Goal Plan of Care Note [code = 83712-3] Goal Plan of Care Note [code = 07743-6] Goal Plan of Care Note [code = 26512-4] Goal Plan of Care Note [code = 91663-1] Goal Plan of Care Note [code = 39319-5] Goal Plan of Care Note [code = 28829-1] Goal Plan of Care Note [code = 12699-9] Goal Plan of Care Note [code = 55627-7] Goal Plan of Care Note [code = 28436-1] Goal Plan of Care Note [code = 57719-2] Goal Plan of Care Note [code = 58620-7] Goal Plan of Care Note [code = 51084-1] Goal Plan of Care Note [code = 50784-5] Goal Plan of Care Note [code = 50810-9] Goal Plan of Care Note [code = 88569-7] Goal Plan of Care Note [code = 70359-2] Goal Plan of Care Note [code = 31623-8] Goal Plan of Care Note [code = 54344-6] Goal Plan of Care Note [code = 53018-4] Goal Plan of Care Note [code = 16387-3] Goal Plan of Care Note [code = 35586-1] Goal Plan of Care Note [code = 78433-5] Goal Plan of Care Note [code = 48065-9] Goal Plan of Care Note [code = 81044-6] Goal Plan of Care Note [code = 73337-4] Goal Plan of Care Note [code = 14670-7] Goal Plan of Care Note [code = 80294-8] Goal Plan of Care Note [code = 95507-2] Goal Plan of Care Note [code = 26466-9] Goal Plan of Care Note [code = 52513-7] Goal Plan of Care Note [code = 75625-0] Goal Plan of Care Note [code = 24915-3] Goal Plan of Care Note [code = 61620-4] Goal Plan of Care Note [code = 11227-5] Goal Plan of Care Note [code = 37431-6] Goal Plan of Care Note [code = 06240-8] Goal Plan of Care Note [code = 23975-5] Goal Plan of Care Note [code = 42167-5] Goal Plan of Care Note [code = 62334-6] Goal Plan of Care Note [code = 96691-0] Goal Plan of Care Note [code = 85512-1] Goal Plan of Care Note [code = 38603-0] Goal Plan of Care Note [code = 48688-2] Goal Plan of Care Note [code = 77322-9] Goal Plan of Care Note [code = 57455-9] Goal Plan of Care Note [code = 00759-4] Goal Plan of Care Note [code = 45147-1] Goal Plan of Care Note [code = 33767-1] Goal Plan of Care Note [code = 11733-5] Goal Plan of Care Note [code = 32463-8] Goal Plan of Care Note [code = 76687-1] Goal Plan of Care Note [code = 58915-2] Goal Plan of Care Note [code = 29617-3] Goal Plan of Care Note [code = 55696-8] Goal Plan of Care Note [code = 64134-8] Goal Plan of Care Note [code = 14843-8] Goal Plan of Care Note [code = 68109-6] Goal Plan of Care Note [code = 36672-9] Goal Plan of Care Note [code = 61418-3] Goal Plan of Care Note [code = 08171-0] Goal Plan of Care Note [code = 94776-6] Goal Plan of Care Note [code = 82075-0] Goal Plan of Care Note [code = 12893-3] Goal Plan of Care Note [code = 00900-1] Goal Plan of Care Note [code = 26353-1] Goal Plan of Care Note [code = 70867-2] Goal Plan of Care Note [code = 78441-6] Goal Plan of Care Note [code = 27366-3] Goal Plan of Care Note [code = 53627-2] Goal Plan of Care Note [code = 25253-5] Goal Plan of Care Note [code = 23725-2] Goal Plan of Care Note [code = 04783-9] Goal Plan of Care Note [code = 45135-9] Goal Plan of Care Note [code = 28915-9] Goal Plan of Care Note [code = 34106-6] Goal Plan of Care Note [code = 56177-1] Goal Plan of Care Note [code = 87385-9] Goal Plan of Care Note [code = 95999-7] Goal Plan of Care Note [code = 93999-7] Goal Plan of Care Note [code = 89622-0] Goal Plan of Care Note [code = 90581-7] Goal Plan of Care Note [code = 08030-3] Goal Plan of Care Note [code = 12400-4] Goal Plan of Care Note [code = 12730-0] Goal Plan of Care Note [code = 07629-3] Goal Plan of Care Note [code = 40807-0] Goal Plan of Care Note [code = 35989-3] Goal Plan of Care Note [code = 98072-9] Goal Plan of Care Note [code = 63019-3] Goal Plan of Care Note [code = 55228-6] Goal Plan of Care Note [code = 96626-2] Goal Plan of Care Note [code = 33148-3] Goal Plan of Care Note [code = 60282-2] Goal Plan of Care Note [code = 44890-2] Goal Plan of Care Note [code = 80608-0] Goal Plan of Care Note [code = 09249-3] Goal Plan of Care Note [code = 22750-1] Goal Plan of Care Note [code = 74417-7] Goal Plan of Care Note [code = 57757-6] Goal Plan of Care Note [code = 35218-0] Goal Plan of Care Note [code = 38921-9] Goal Plan of Care Note [code = 25222-9] Goal Plan of Care Note [code = 29977-5] Goal Plan of Care Note [code = 78072-8] Goal Plan of Care Note [code = 83138-8] Goal Plan of Care Note [code = 49715-5] Goal Plan of Care Note [code = 61546-7] Goal Plan of Care Note [code = 39978-6] Goal Plan of Care Note [code = 52665-7] Goal Plan of Care Note [code = 97205-8] Goal Plan of Care Note [code = 59404-0] Goal Plan of Care Note [code = 70842-6] Goal Plan of Care Note [code = 80483-7] Goal Plan of Care Note [code = 76878-9] Goal Plan of Care Note [code = 06428-5] Goal Plan of Care Note [code = 28486-7] Goal Plan of Care Note [code = 95918-1] Goal Plan of Care Note [code = 83937-7] Goal Plan of Care Note [code = 60413-6] Goal Plan of Care Note [code = 81631-6] Goal Plan of Care Note [code = 33835-3] Goal Plan of Care Note [code = 55896-5] Goal Plan of Care Note [code = 36213-3] Goal Plan of Care Note [code = 99025-4] Goal Plan of Care Note [code = 56444-8] Goal Plan of Care Note [code = 74130-2] Goal Plan of Care Note [code = 17920-2] Goal Plan of Care Note [code = 05984-1] Goal Plan of Care Note [code = 09657-0] Goal Plan of Care Note [code = 79829-5] Goal Plan of Care Note [code = 11101-5] Goal Plan of Care Note [code = 10399-2] Goal Plan of Care Note [code = 51706-9] Goal Plan of Care Note [code = 72526-8] Goal Plan of Care Note [code = 89667-2] Goal Plan of Care Note [code = 93519-4] Goal Plan of Care Note [code = 87656-8] Goal Plan of Care Note [code = 47379-1] Goal Plan of Care Note [code = 72773-0] Goal Plan of Care Note [code = 18038-0] Goal Plan of Care Note [code = 66249-5] Goal Plan of Care Note [code = 08971-4] Goal Plan of Care Note [code = 34401-0] Goal Plan of Care Note [code = 79198-1] Goal Plan of Care Note [code = 50653-1] Goal Plan of Care Note [code = 33279-7] Goal Plan of Care Note [code = 09145-7] Goal Plan of Care Note [code = 02805-7] Goal Plan of Care Note [code = 54549-1] Goal Plan of Care Note [code = 57135-7] Goal Plan of Care Note [code = 64170-8] Goal Plan of Care Note [code = 73102-5] Goal Plan of Care Note [code = 87721-1] Goal Plan of Care Note [code = 58870-1] Goal Plan of Care Note [code = 98032-3] Goal Plan of Care Note [code = 53838-4] Goal Plan of Care Note [code = 63034-6] Goal Plan of Care Note [code = 65775-1] Goal Plan of Care Note [code = 00118-5] Goal Plan of Care Note [code = 65427-1] Goal Plan of Care Note [code = 06172-2] Goal Plan of Care Note [code = 81749-4] Goal Plan of Care Note [code = 56857-4] Goal Plan of Care Note [code = 55221-5] Goal Plan of Care Note [code = 14925-9] Goal Plan of Care Note [code = 57069-3] Goal Plan of Care Note [code = 61816-5] Goal Plan of Care Note [code = 32390-8] Goal Plan of Care Note [code = 96104-7] Goal Plan of Care Note [code = 90998-3] Goal Plan of Care Note [code = 02470-2] Goal Plan of Care Note [code = 58076-9] Goal Plan of Care Note [code = 81031-4] Goal Plan of Care Note [code = 41875-5] Goal Plan of Care Note [code = 01273-4] Goal Plan of Care Note [code = 58318-7] Goal Plan of Care Note [code = 11257-9] Goal Plan of Care Note [code = 92470-1] Goal Plan of Care Note [code = 74609-2] Goal Plan of Care Note [code = 09779-6] Goal Plan of Care Note [code = 38488-8] Goal Plan of Care Note [code = 64246-9] Goal Plan of Care Note [code = 87225-4] Goal Plan of Care Note [code = 11686-3] Goal Plan of Care Note [code = 11375-4] Goal Plan of Care Note [code = 10600-8] Goal Plan of Care Note [code = 71687-9] Goal Plan of Care Note [code = 01858-1] Goal Plan of Care Note [code = 57325-9] Goal Plan of Care Note [code = 29837-9] Goal Plan of Care Note [code = 10770-9] Goal Plan of Care Note [code = 31984-5] Goal Plan of Care Note [code = 00635-8] Goal Plan of Care Note [code = 79015-8] Goal Plan of Care Note [code = 36529-3] Goal Plan of Care Note [code = 50403-1] Goal Plan of Care Note [code = 62353-9] Goal Plan of Care Note [code = 13228-1] Goal Plan of Care Note [code = 54843-0] Goal Plan of Care Note [code = 15549-8] Goal Plan of Care Note [code = 28981-9] Goal Plan of Care Note [code = 98684-9] Goal Plan of Care Note [code = 58641-7] Goal Plan of Care Note [code = 31644-1] Goal Plan of Care Note [code = 48580-1] Goal Plan of Care Note [code = 88375-8] Goal Plan of Care Note [code = 58245-0] Goal Plan of Care Note [code = 59045-6] Goal Plan of Care Note [code = 44354-6] Goal Plan of Care Note [code = 40034-5] Goal Plan of Care Note [code = 87801-7] Goal Plan of Care Note [code = 26688-6] Goal Plan of Care Note [code = 45106-2] Goal Plan of Care Note [code = 43769-6] Goal Plan of Care Note [code = 70086-7] Goal Plan of Care Note [code = 85781-0] Goal Plan of Care Note [code = 19005-3] Goal Plan of Care Note [code = 02290-0] Goal Plan of Care Note [code = 17994-5] Goal Plan of Care Note [code = 48540-1] Goal Plan of Care Note [code = 31117-7] Goal Plan of Care Note [code = 22854-3] Goal Plan of Care Note [code = 13566-9] Goal Plan of Care Note [code = 93999-1] Goal Plan of Care Note [code = 70645-2] Goal Plan of Care Note [code = 41851-7] Goal Plan of Care Note [code = 38507-4] Goal Plan of Care Note [code = 78021-6] Goal Plan of Care Note [code = 71615-1] Goal Plan of Care Note [code = 61732-9] Goal Plan of Care Note [code = 47068-4] Goal Plan of Care Note [code = 36302-0] Goal Plan of Care Note [code = 20386-6] Goal Plan of Care Note [code = 11580-9] Goal Plan of Care Note [code = 79744-4] Goal Plan of Care Note [code = 05030-4] Goal Plan of Care Note [code = 82945-1] Encounters Start End Encounter Admission Attending Care Care Encounter Source Date/Time Date/Time Type Type Clinicians Facility Department ID 2021-05-10 Emergency [facility] [id number] [facility] 15:04:50 [facility] 2021-05-08 Emergency [facility] [id number] Univers 16:08:38 [facility] 2020-08-08 Inpatient Bebeto Valderrama [facility] RADI [id number] [facility] 15:30:00 59 [facility] 2020-08-02 Inpatient HCAT[facility] CARISSA [id number] [facility] 13:01:00 80 [facility] 2020-02-13 Inpatient HCATO CARISSA [id number] [facility] 19:15:00 41 [facility] 2020-01-16 Inpatient ERICA Wilson, HC[facility] SURG [id number] [facility] 16:00:00 Tomiko 97 [facility] 2023-07-06 2023-07-06 Outpatient ORLY THORPE 122 [id number] [facility] 15:45:00 15:45:00 Seybamando love 2023-03-30 2023-03-30 Outpatient ANDREEA CUTLER [id number] [place] 13:15:00 13:15:00 AMNA Seybol d 2023-03-04 2023-03-04 Outpatient MILY ANDREEA DORAN [id number] [place] 14:30:00 14:30:00 VALDEZ Seybol d 2023-02-28 2023-02-28 Outpatient KOFFI ANDREEA DORAN [id number] [place] 15:45:00 15:45:00 ARLENE Seybol d 2023-02-18 2023-02-18 Outpatient MILY ANDREEA DORAN [id number] [place] 00:00:00 00:00:00 VALDEZ Seybol d 2023-02-18 2023-02-18 Outpatient MILY ANDREEA DORAN [id number] [place] 00:00:00 00:00:00 VALDEZ Seybol d 2023-02-17 2023-02-17 Outpatient LAB90 ANDREEA DORAN [id number] [place] 17:15:00 17:15:00 Seybol d 2023-02-17 2023-02-17 Outpatient MILY ANDREEA DORAN [id number] [place] 16:30:00 16:30:00 VALDEZ Seybol d 2023-02-16 2023-02-16 Outpatient SFA [facility] [id number] Huang 13:31:17 13:31:17 0809 F Quirino 2023-02-16 2023-02-16 Outpatient ANDREEA PEOPLES [id number] [place] 00:00:00 00:00:00 NETO Seybol d 2023-02-16 2023-02-16 Outpatient ANDREEA PEOPLES [id number] [place] 00:00:00 00:00:00 NETO Seybol d 2023-02-10 2023-02-10 Outpatient ANDREEA PEOPLES [id number] [place] 00:00:00 00:00:00 NETO Seybol d 2023-02-02 2023-02-02 Outpatient ORLY THORPE 122 [id number] [place] 14:30:00 14:30:00 Seybol d 2023-02-02 2023-02-02 Outpatient ANDREEA PEOPLES [id number] [place] 00:00:00 00:00:00 NETO Seybol d 2023-02-01 2023-02-01 Outpatient ZOYA GONZALEZ ANDREEA DORAN 122 [id number] [place] 15:00:00 15:00:00 Seybol d 2023-02-01 2023-02-01 Outpatient ANDREEA EID [id number] [place] 14:30:00 14:30:00 NICOLÁS Seybol d 2023-01-10 2023-01-12 Outpatient X [facility] [id number] Univers 07:31:00 11:08:00 GUDELIA diaz [facility] 2023-01-10 2023-01-12 [facility] 1.2.8 40.114 [id number] Univers 07:31:00 11:08:00 [facility] [id number] [address] 2023-01-04 2023-01-04 Outpatient ORLY THORPE 122 [id number] [place] 15:45:00 15:45:00 Seybol d 2022-12-27 2022-12-27 Outpatient ANDREEA PEOPLES [id number] [place] 00:00:00 00:00:00 NETO Seybol d 2022-12-22 2022-12-22 Outpatient ANDREEA PEOPLES [id number] [place] 00:00:00 00:00:00 NETO Seybol d 2022-12-21 2022-12-21 Outpatient ANDREEA EID [id number] [place] 14:15:00 14:15:00 NICOLÁS Seybol d 2022-12-17 2022-12-17 Outpatient LAB90 ANDREEA DORAN [id number] [place] 15:45:00 15:45:00 Seybol d 2022-12-17 2022-12-17 Outpatient ANDREEA PEOPLES [id number] [place] 15:00:00 15:00:00 NETO Seybol d 2022-12-15 2022-12-15 Outpatient LAB90 ANDREEA DORAN [id number] [place] 08:30:00 08:30:00 Seybol d 2022-12-07 2022-12-07 Outpatient MELONY ANDREEA DORAN 121 [id number] [place] 00:00:00 00:00:00 MD CASANDRA Seybol d 2022-11-30 2022-11-30 Outpatient ANDREEA MCCLELLAND [id number] [place] 13:50:00 13:50:00 JUDI Seybol d 2022-11-29 2022-11-29 Outpatient ANDREEA MORRISON [id number] [place] 00:00:00 00:00:00 IVELISSE Seybol d 2022-11-29 2022-11-29 Outpatient ANDREEA DORAN [id number] [place] 00:00:00 00:00:00 Seybol d 2022-11-29 2022-11-29 Outpatient ANDREEA PEOPLES [id number] [place] 00:00:00 00:00:00 NETO Seybol d 2022-11-24 2022-11-24 Outpatient ANDREEA PEOPLES [id number] [place] 15:00:00 15:00:00 NETO Seybol d 2022-11-03 2022-11-[address] [facility] 1.2.945.763 [id number] Univers 08:26:00 11:02:00 Katelyn BARBER 350.1.13.10 i lexii [facility] 4.2.7.2.686 [facility] [id number] [place] [address] [address] 2022-11-03 2022-11-03 Emergency X [facility] ERT [id number] Univers 08:26:00 11:02:00 KATELYN diaz [facility] 2022-11-01 2022-11-01 Outpatient SFA FREDRICK [id number] Huang 16:16:49 16:16:49 0424 F Quirino 2022-11-01 2022-11-01 Outpatient ANDREEA PEOPLES [id number] [place] 16:00:00 16:00:00 NETO Seybol d 2022-11-01 2022-11-01 Outpatient ANDREAE PEOPLES [id number] [place] 00:00:00 00:00:00 NETO Seybol d 2022-10-27 2022-10-27 Outpatient NOAH, ANDREEA DORAN [id number] [place] 14:00:00 14:00:00 FABIO Seybol d 2022-10-26 2022-10-26 Outpatient PREZAS, ANDREEA DORAN [id number] [place] 00:00:00 00:00:00 NETO Seybol d 2022-10-26 2022-10-26 Outpatient PREZAS, ANDREEA DORAN [id number] [place] 00:00:00 00:00:00 NETO Seybol d 2022-10-22 2022-10-22 Outpatient RAGINI, ANDREEA DORAN [id number] [place] 16:45:00 16:45:00 NICOLÁS Seybol d 2022-10-21 2022-10-21 Outpatient MAURIILO ORLY ANDREEA DORAN [id number] [place] 10:00:00 10:00:00 Seybol d 2022-10-01 2022-10-01 Outpatient PREZAS, ANDREEA DORAN [id number] [place] 15:45:00 15:45:00 NETO Seybol d 2022-09-24 2022-09-24 Outpatient JARBRINK-SE ANDREEA DORAN 118 [id number] [place] 15:00:00 15:00:00 HGYRIS MARIE Se ybold 2022-09-21 2022-09-21 Outpatient PREZAS, ANDREEA DORAN [id number] [place] 15:00:00 15:00:00 NETO Seybol d 2022-09-20 2022-09-20 Outpatient PREZASANDREEA [id number] [place] 00:00:00 00:00:00 NETO Seybol d 2022-09-10 2022-09-10 Outpatient RAGINI, ANDREEA DORAN [id number] [place] 10:30:00 10:30:00 NICOLÁS Seybol d 2022-09-09 2022-09-09 Outpatient PREZAANDREEA Rhodes [id number] [place] 00:00:00 00:00:00 NETO Seybol d 2022-09-09 2022-09-09 Outpatient PREZASANDREEA [id number] [place] 00:00:00 00:00:00 NETO Seybol d 2022-09-08 2022-09-08 Outpatient LAB90 ANDREEA ANDREEA [id number] [place] 08:00:00 08:00:00 Seybol d 2022-09-07 2022-09-07 Outpatient ANDREEA PEOPLES ANDREEA [id number] [place] 15:00:00 15:00:00 NETO Seybol d 2022-09-01 2022-09-01 Transition JIE Hargrove 1.2.840.114 [id number] Univers 00:00:00 00:00:00 of Care Leslie RIVERA 350.1.13.10 [place] [id number] [facility] [address] 2022-08-26 2022-08-30 Inpatient X [facility] [id number] Univers 14:36:00 10:41:00 MERI diaz [facility] 2022-08-26 2022-08-30 [facility] Robert Lutz [facility] 1.2.840. 114 [id number] Univers 14:36:00 10:41:00 Encounter Meri Wray 350.1.13.10 ity [facility] [place] [id number] [facility] [address] 2022-07-09 2022-07-09 Outpatient [facility] [id number] Huang 09:41:12 09:41:12 1230 F Quirino 2022-07-09 2022-07-09 Outpatient [id number]- [id number] 9d 27323q-c 00:00:00 00:00:00 Visit n78b-6vw6 40c-4fc9-a -v5it-934 8bb-636dec uqsg7996j b6017h 2022-06-23 2022-06-23 Outpatient ma1l24gz- [id number] ac 9m44sb-7 00:00:00 00:00:00 Visit 5x0z-06f9 k8v-77g6-y -f8l3-z65 1c8-y810pr 9ny2d1554 1v6319 2022-06-21 2022-06-21 Emergency X LONI NHCLAIR ERT [id number] Univers 17:30:00 23:11:00 KATELYN diaz [facility] 2022-06-21 2022-06-21 Emergency JAVIER Ivey 1.2.938.906 [id number] Univers 17:30:00 23:11:00 Katelyn BARBER 350.1.13.10 i [facility] 4.2.7.2.686 [facility] [id number] [address] 2022-06-18 2022-06-18 Outpatient SFA SFA [id number] 022 Huang 10:29:22 10:29:22 1209 F Quirino 2022-06-18 2022-06-18 Outpatient 0da9etf7- [id number] 3a n2vdt7-m 00:00:00 00:00:00 Visit rr8r-1sa3 j3e-2ee4-e -h151-g11 058-y8774s 18otrw344 xdu939 2022-06-17 2022-06-17 Outpatient SFA SFA [id number] 022 Huang 08:29:59 08:29:59 1208 F Quirino 2022-06-16 2022-06-16 Outpatient SFA SFA [id number] 022 Huang 15:41:26 15:41:26 1207 F Quirino 2022-06-16 2022-06-16 Outpatient 0s273a0x- [id number] 2f 561m9h-n 00:00:00 00:00:00 Visit dee3-4499 ee3-4499-9 -917d-e2d 17d-o1j648 22203919p 02044y 2022-06-04 2022-06-04 Outpatient SFA SFA 48098-9 022 Huang 11:59:44 11:59:44 1125 F Quirino 2022-06-02 2022-06-02 Outpatient 53b56s5m- [id number] r50i0w-1 00:00:00 00:00:00 Visit 756a-4a2e 56a-4a2e-b -q541-s47 549-l9625z 82u9520z7 9815d6 2022-04-29 2022-04-29 Outpatient SFA [facility] [id number] 022 Huang 08:03:25 08:03:25 1020 F Quirino 2022-04-29 2022-04-29 Outpatient 031kd973- [id number] 2jn298-1 00:00:00 00:00:00 Visit 3nh8-0e61 bd7-4b85-9 -940e-c2d 40e-c2dfc3 zz8310384 229379 4066-10-14 2022-04-23 Outpatient ch2b5740- [id number] bf 3o8655-z 00:00:00 00:00:00 Visit pf33-5rhc n85-1umb-0 -924a-d01 24a-d01f5f p6h6iv76i 4eb17f 2022-04-09 2022-04-09 Outpatient [facility] [id number] 022 Huang 08:02:18 08:02:18 0930 F Quirino 2022-04-09 2022-04-09 Outpatient s7o31060- [id number] c2 w90530-2 00:00:00 00:00:00 Visit 4c01-68e7 e85-38r0-9 -8750-031 750-0319bb 1zoau2943 sn6991 2022-03-29 2022-03-29 Outpatient [id number] 789976-w 00:00:00 00:00:00 Visit q529-55j7 701-46a9-a -q4e1-c83 1a0-p02180 4723a23h5 3d26f8 2022-03-16 2022-03-[address] [facility] [place] 1.2.840.1 [id number] 2100 [id number] Methodi 00:00:00 00:00:[address] [place] 3.430.2.7 Hospit a Arik .3.802861 l .8 2022-03-16 2022-03-[address] [place] 1.2.840.1 [id number] 2100 [id number] Methodi 00:00:00 00:00:[address] [place] 3.430.2.7 Hospit a [facility] .3.536012 l .8 2022-03-11 2022-03-11 Telephone Ernst, 1.2.840.1 [id number] 2099 [id number] Methodi 00:00:00 00:00:[address] [place] 3.430.2.7 Hospit a Arik .3.738762 l .8 2022-03-11 2022-03-11 Telephone Ernst, 1.2.840.1 [id number] 2099 [id number] Methodi 00:00:00 00:00:[address] [place] 3.430.2.7 Hospit a Arik .3.396554 l .8 2022-03-09 2022-03-09 Outpatient j0p90294- [id number] d6 x92047-d 00:00:00 00:00:00 Visit w45v-888a 56a-450d-9 -9s2p-72x o3r-73l866 688u18886 g25225 2022-01-20 2022-01-20 Outpatient 0yv22zey- [id number] 0f h51wac-7 00:00:00 00:00:00 Visit 8baf-464d baf-464d-a -y67c-409 91e-94020n 87abfa07m aeb84a 2021-10-16 2021-10-16 Emergency [facility] [id number] Univers 16:39:00 22:23:00 BEATRIZ diaz [facility] 2021-10-16 2021-10-16 Emergency [facility] 1.2.987.693 [id number] Univers 16:39:00 22:23:00 Beatriz BARBER 350.1.13.10 emily [facility] 4.2.7.2.686 [facility] [id number] [address] 2021-09-22 2021-09-22 Emergency X [facility] ERT [id number] Univers 09:56:00 12:05:00 JN diaz [facility] 2021-09-22 2021-09-22 Emergency [facility] 1.2.415.411 [id number] Univers 09:56:00 12:05:00 Jn BARBER 350.1.13.10 i ty [facility] 4.2.7.2.686 [facility] [id number] [address] 2021-08-20 2021-08-20 [facility] 1.2.840.114 [id number] Univers 00:00:00 00:00:00 [facility] 350.1.13.10 it y [facility] 4.2.7.2.686 Blake as DANIELITO?BLEA [id number] Pr dical [address] MEDICAL OFFICE BUILDING 2021-07-31 2021-07-31 Outpatient Bebeto Valderrama [facility] Y [id number] [facility] 05:47:00 05:47:00 00 [facility] 2021-06-18 2021-06-18 Emergency X [facility] ERT [id number] Univers 04:31:00 08:25:00 MERENAASHUTOSH ity [facility] 2021-06-18 2021-06-18 Emergency [facility] 1.2.557.789 [id number] Univers 04:31:00 08:25:00 Fozia BARBER 350.1.13.10 ity [facility] 4.2.7.2.686 [facility] [id number] [address] 2021-06-10 2021-06-10 Outpatient [facility] [id number] [place] 00:00:00 00:00:[address] 2021-06-10 2021-06-10 Travel 1.2.840.1 1.2.100.373 [id number] Methodi 00:00:00 00:00:[address] 3.430.2.7 0.2.7.3.698 Ho spita .3.683091 084.8 l .8 2021-06-08 2021-06-08 Telephone Ernst, 1.2.840.1 [id number] [facility] 00:00:00 00:00:[address] [facility] 3.430.2.7 Hospit jacob Elise .3.627088 l .8 2021-05-30 2021-05-30 Emergency X MISTY [facility] ERT [id number] Univers 15:49:00 19:42:00 MARY [facility] 2021-05-30 2021-05-30 [facility] 1.2.805.730 [id number] Univers 15:49:00 19:42:00 Mary S [place] 350.1.13.10 i ty of [place] 4[place]2.7.2.[place] [facility] [id number] [place] [id number] [place] 2021-03-17 2021-03-17 [facility] 1.2.154.077 [id number] Univers 00:00:00 00:00:00 Doron Barber 350.1.13.10 i ty of [place] 4.2.7.2.686 [facility] s Professio [phone] Pr dical nal 220 [facility] 2021-02-27 2021-02-27 [facility] [id number] Univers 15:00:00 15:00:00 DORON [facility] 2020-12-23 2020-12-23 Outpatient R ROBBIE [facility] [id number] Univers 16:00:00 16:00:00 FABIO [facility] 2020-12-10 2020-12-10 Outpatient R LISA [facility] [id number] Univers 09:00:00 09:53:04 SENDYAKELIN [facility] 2020-12-02 2020-12-04 Outpatient X KENYA [facility] ANTONIO [id number] Univers 19:53:00 17:23:00 FOZIA [facility] 2020-11-07 2020-11-07 Outpatient Anupama GRIJALVA [facility] [id number] Univers 13:30:00 13:30:00 DORON [facility] 2020-06-02 2020-06-02 [facility] [id number] 00:00:00 00:00:00 Lily Barber 350.1.13.10 [place] 4.2.7.2.686 Profjesus [id number] [address] 2020-05-29 2020-05-29 Outpatient R LUIS [facility] [id number] Univers 15:15:00 15:15:00 LESLEE diaz [facility] 2020-05-27 2020-05-27 [facility] [id number] 10:59:24 11:54:17 Visit Lily Barber 350.1.13.10 [place] 4.2.7.2.686 Professio [id number] [address] 2020-05-27 2020-05-27 [facility] [id number] [facility] 10:45:00 10:45:00 LILY [facility] 2020-05-27 2020-05-27 Orders Doctor JACOBS [id number] 00:00:00 00:00:00 Only Unassigned, BENITA 350.1.13.10 [place] [facility] 4.2.7.2.686 [id number] 2020-01-10 2020-01-10 Outpatient PRANAY WilsonCL LABO [id number] [facility] 18:46:00 18:46:00 Tomiko 24 [facility] 2020-01-04 2020-01-04 Outpatient PRANAY WilsonTO RADI [id number] [facility] 13:00:00 13:00:00 Tomiko 18 [facility] 2019-12-12 2019-12-12 Outpatient R CORINNE [facility] [id number] [facility] 16:30:00 16:30:00 STANISLAW diaz [facility] 2019-12-07 2019-12-07 Outpatient R DONNA [facility] [id number] Univers 09:00:00 09:00:00 DORON diaz [facility] 2019-11-22 2019-11-22 Outpatient ERNST [facility] [id number] [place] 00:00:00 00:00:00 SILVINA porras 2019-11-06 2019-11-06 Outpatient ANTOSH, [facility] [id number] [place] 00:00:00 00:00:00 SILVINA [address] 2019-11-01 2019-11-01 Outpatient ANTOSH, [facility] [id number] [place] 00:00:00 00:00:00 SILVINA [address] 2019-10-30 2019-10-30 Outpatient GALAN, [facility] [id number] [place] 00:00:00 00:00:00 ABHIJIT [address] 2019-10-18 2019-10-18 Outpatient ANTOSH, [facility] [id number] [place] 00:00:00 00:00:00 SILVINA [address] 2019-10-02 2019-10-02 Outpatient ANTOSH, [facility] [id number] [place] 00:00:00 00:00:00 SILVINA [address] 2019-10-01 2019-10-01 Outpatient ANTOSH, [facility] [id number] [place] 00:00:00 00:00:00 SILVINA [address] 2019-09-19 2019-09-19 Outpatient ANTOSH, [facility] [id number] [place] 00:00:00 00:00:00 SILVINA [address] 2019-09-11 2019-09-11 Outpatient Anupama SUN, [facility] [id number] [facility] 10:30:00 10:30:00 STANISLAW [facility] 2019-09-10 2019-09-10 Outpatient GALAN, [facility] [id number] [place] 00:00:00 00:00:00 ABHIJIT [address] 2019-09-10 2019-09-10 Outpatient ANTOSH, [facility] [id number] [place] 00:00:00 00:00:00 SILVINA [address] 2019-09-10 2019-09-10 Outpatient ANTOSH, [facility] [id number] [place] 00:00:00 00:00:00 SILVINA [address] 2019-08-23 2019-08-23 Outpatient R ADRIENNE, [facility] [id number] [facility] 16:15:00 10:31:44 LILY [facility] 2019-08-15 2019-08-15 Outpatient R ADRIENNE [facility] [id number] [facility] 09:15:00 09:44:35 LILY diaz [facility] 2019-07-07 2019-07-07 Emergency X KENYA [facility] ERT [id number] Univers 10:13:53 13:06:00 FOZIA diaz [facility] 2010-08-05 2010-08-07 Inpatient OUTP Kit Lopez [facility]G [id number] [facility] 16:20:00 14:00:00 00 [facility] Results Test Description Test Time Test Comments Results Result Comments Source POCT GLUCOSE (AUTOMATED) 2023-01-12 12:35:42 Test Item Value Reference Range Interpretation Comme nts POCT GLU (test code = 2463188525) 179 mg/dL 70-110 H Lab Interpretation (test code = 29744-5) [facility]normal [facility]2023-01-12 02:35:59 Test Item Value Reference Range Interpretation Comments POCT GLU (test code = 8208897026) 267 mg/dL 70-110 H Lab Interpretation (test code = Abnormal 31904-7) [facility]2023-01-11 21:21:17 Test Item Value Reference Range Interpretation Comments POCT GLU (test code = 8300693533) 276 mg/dL 70-110 H Lab Interpretation (test code = Abnormal 64249-7) [facility]2023-01-11 16:26:50 Test Item Value Reference Range Interpretation Comments POCT GLU (test code = 8512060263) 114 mg/dL 70-110 H Lab Interpretation (test code = Abnormal 81254-7) [facility] 12:44:00 Test Item Value Reference Range Interpretation Comments POCT GLU (test code = 0222991646) 142 mg/dL 70-110 H Lab Interpretation (test code = Abnormal 69122-0) [facility]2023-01-11 02:08:20 Test Item Value Reference Range Interpretation Comments POCT GLU (test code = 3929807883) 97 mg/dL 70-110 Lab Interpretation (test code = Normal 40497-8) [facility]2023-07-03 14:27:19 Test Item Value Reference Range Interpretation Comments TRIG (test code = 4747504763) 427 mg/dL 30-170 H Lab Interpretation (test code = Abnormal 23826-7) [facility] METABOLIC PANEL (32287)2023-01-10 14:22:41 Test Item Value Reference Range Interpretation Comments NA (test code = 138 mmol/L 135-145 1900193719) K (test code = 4.6 mmol/L 3.5-5.0 0157674330) CL (test code = 102 mmol/L 98-108 1395236957) CO2 TOTAL (test code = 21 mmol/L 23-31 L 2514770182) AGAP (test code = 15 2-16 0175970449) BUN (test code = 24 mg/dL 7-23 H 4250698515) GLUCOSE (test code = 158 mg/dL 70-110 H 5978168442) CREATININE (test code = 0.82 mg/dL 0.50-1.04 2672903338) TOTAL BILI (test code = 0.4 mg/dL 0.1-1.1 5184171447) CALCIUM (test code = 9.4 mg/dL 8.6-10.6 9209818211) T PROTEIN (test code = 7.9 g/dL 6.3-8.2 8803494522) ALBUMIN (test code = 4.7 g/dL 3.5-5.0 1363707203) ALK PHOS (test code = 42 U/L 34-122 7573913899) ALTv (test code = 32 U/L 5-35 1742-6) AST(SGOT) (test code = 27 U/L 13-40 1605841890) eGFR (test code = 75.7 mL/min/1.73m2 1194357631) CALVIN (test code = CALVIN) Association of [...] tests). Lab Interpretation Abnormal (test code = 25054-2) [facility] 14:22:41 Test Item Value Reference Range Interpretation Comments LIPASE (test code = 7950233946) 682 U/L 0-220 H Lab Interpretation (test code = Abnormal 03994-5) [facility] WITH [id number] 14:15:28 Test Item Value Reference Range Interpretation Comments WBC (test code = 7.27 See_Comment [Automated 2871-2) message] The sy stem which generated this result transmitted reference range : 4.30 - 11.10 10*3/?L. The reference range was not used to interpret this result as normal/abnormal . RBC (test code = 4.56 See_Comment [Automated 994-3) message] The sy stem which generated this [...] RDW-SD (test code = 45.0 fL 39.0-49.9 15959-6) RDW-CV (test code = 14.9 % 12.0-15.5 788-0) PLT (test code = 260 See_Comment [Automated 777-3) message] The sy stem which generated this result transmitted reference range : 166 - 358 10*3/ ?L. The reference r doretha was not used to interpret this result as normal/abnormal . MPV (test code = 9.3 fL 9.5-12.9 L 57386-9) NRBC/100 WBC (test 0.0 See_Comment [Automat ed code = 8921514485) message] The system which generated this result transmitted reference range : 0.0 - 10.0 /100 WBCs. The refer ence range was not u sed to interpret th is result as normal/abnormal . NRBC x10^3 (test code See_Comment [Auto mated = 5355850917) message] The s ystem which generated this result transmitted reference range : 10*3/?L. The reference range was not used to interpret this result as normal/abnormal . GRAN MAT (NEUT) % 51.9 % (test code = 770-8) IMM GRAN % (test code 0.60 % = 0992037088) LYMPH % (test code = 34.7 % 736-9) MONO % (test code = 9.2 % 5905-5) EOS % (test code = 2.5 % 713-8) BASO % (test code = 1.1 % 706-2) GRAN MAT x10^3(ANC) 3.78 10*3/uL 1.88-7.09 (test code = 5480747549) IMM GRAN x10^3 (test 0.04 10*3/uL 0.00-0.06 code = 9370472021) LYMPH x10^3 (test code 2.52 10*3/uL 1.32-3.29 = 731-0) MONO x10^3 (test code 0.67 10*3/uL 0.33-0.92 = 742-7) EOS x10^3 (test code = 0.18 10*3/uL 0.03-0.39 711-2) BASO x10^3 (test code 0.08 10*3/uL 0.01-0.07 H = 704-7) Lab Interpretation Abnormal (test code = 16055-1) [facility] [id number] 13:37:00 Test Item Value Reference Range Interpretation Comments POCT PREG (test code = 1605) Negative On board controls acceptable with C Yes Line (test code = 3574) Lab Interpretation (test code = Normal 16533-3) [facility] STR[facility]/BLOOD [id number] 00:00:00 Test Item Value Reference Range Interpretation Comments BLOOD SUGAR (test code = 694226) 276 mg/dL 65-99 A Lab Interpretation (test code = Abnormal 23535-3) Andreea Corona - ExternalLIPID PANEL (91169)(TOTAL CHOLESTEROL, TRIGLYCERIDES, HDL)2022-11-03 14:32:57 Test Item Value Reference Range Interpretation Comments CHOL (test code = 236 mg/dL 120-200 H 1607370342) HDL (test code = 32 mg/dL >=50 L 7119804751) HDLC RATIO (test code = 7.4 <=4.5 H 3865755276) TRIG (test code = 667 mg/dL 30-170 H 2384583386) LDL CHOL (test code = Unable to calculate 77743-3) LDL due to elev ated triglyceride le jossy greater than 40 0 mg/dL. VLDL (test code = 133 mg/dL 5-60 H 3795304817) Lab Interpretation Abnormal (test code = 40844-2) [facility] (NA, K, CL, CO2, GLUCOSE, BUN, CREATININE, CA)2022-11-03 14:18:35 Test Item Value Reference Range Interpretation Comments NA (test code = 139 mmol/L 135-145 3106977595) K (test code = 4.4 mmol/L 3.5-5.0 9304309121) CL (test code = 105 mmol/L 98-108 6662572556) CO2 TOTAL (test code = 23 mmol/L 23-31 1194312985) AGAP (test code = 11 2-16 5875532338) BUN (test code = 12 mg/dL 7-23 7569907072) GLUCOSE (test code = 279 mg/dL 70-110 H 4423517997) CREATININE (test code = 0.59 mg/dL 0.50-1.04 4967323667) CALCIUM (test code = 9.8 mg/dL 8.6-10.6 3507134108) eGFR (test code = 110.7 mL/min/1.73m2 0394942891) CALVIN (test code = CALVIN) Association of [...] tests). Lab Interpretation Abnormal (test code = 08650-0) [facility] PANEL (49391) (ALB,T.PRO,BILI T,BU/BC,ALT,AST,ALK PHOS)2022-11-03 14:18:35 Test Item Value Reference Range Interpretation Comments TOTAL BILI (test code = 4902963699) 0.8 mg/dL 0.1-1.1 BILI UNCON (test code = 9388449687) 0.6 mg/dL 0.1-1.1 BILI CONJ (test code = 9256019060) 0.0 mg/dL 0.0-0.3 T PROTEIN (test code = 0628373853) 8.5 g/dL 6.3-8.2 H ALBUMIN (test code = 1944056572) 4.9 g/dL 3.5-5.0 ALK PHOS (test code = 0640402723) 48 U/L 34-122 ALTv (test code = 1742-6) 60 U/L 5-35 H AST(SGOT) (test code = 4485800890) 56 U/L 13-40 H Lab Interpretation (test code = Abnormal 75177-2) [facility]2023-[facility]-26 14:18:15 Test Item Value Reference Range Interpretation Comments LIPASE (test code = 3142675494) 240 U/L 0-220 H Lab Interpretation (test code = Abnormal 95099-6) [facility] WITH [id number] 14:01:29 Test Item Value Reference Range Interpretation Comments WBC (test code = 6.73 See_Comment [Automated 7590-2) message] The sy stem which generated this result transmitted reference range : 4.30 - 11.10 10*3/?L. The reference range was not used to interpret this result as normal/abnormal . RBC (test code = 4.90 See_Comment [Automated 089-8) message] The sy stem which generated this [...] RDW-SD (test code = 39.7 fL 39.0-49.9 95266-0) RDW-CV (test code = 13.0 % 12.0-15.5 788-0) PLT (test code = 252 See_Comment [Automated 777-3) message] The sy stem which generated this result transmitted reference range : 166 - 358 10*3/ ?L. The reference r doretha was not used to interpret this result as normal/abnormal . MPV (test code = 9.4 fL 9.5-12.9 L 36245-1) NRBC/100 WBC (test 0.0 See_Comment [Automat ed code = 2322789614) message] The system which generated this result transmitted reference range : 0.0 - 10.0 /100 WBCs. The refer ence range was not u sed to interpret th is result as normal/abnormal . NRBC x10^3 (test code See_Comment [Auto mated = 9171029834) message] The s ystem which generated this result transmitted reference range : 10*3/?L. The reference range was not used to interpret this result as normal/abnormal . GRAN MAT (NEUT) % 54.5 % (test code = 770-8) IMM GRAN % (test code 0.70 % = 7626376291) LYMPH % (test code = 34.3 % 736-9) MONO % (test code = 7.4 % 5905-5) EOS % (test code = 2.1 % 713-8) BASO % (test code = 1.0 % 706-2) GRAN MAT x10^3(ANC) 3.66 10*3/uL 1.88-7.09 (test code = 6546985963) IMM GRAN x10^3 (test 0.05 10*3/uL 0.00-0.06 code = 4982648898) LYMPH x10^3 (test code 2.31 10*3/uL 1.32-3.29 = 731-0) MONO x10^3 (test code 0.50 10*3/uL 0.33-0.92 = 742-7) EOS x10^3 (test code = 0.14 10*3/uL 0.03-0.39 711-2) BASO x10^3 (test code 0.07 10*3/uL 0.01-0.07 = 704-7) Lab Interpretation Abnormal (test code = 85388-3) [facility] STRIP/BLOOD [id number] 00:00:00 Test Item Value Reference Range Interpretation Comments BLOOD SUGAR (test code = 517068) 260 mg/dL 65-99 A Lab Interpretation (test code = Abnormal 30371-0) [facility]2022-[facility]-30 14:54:37 Test Item Value Reference Range Interpretation Comments POCT GLU (test code = 7731987475) 123 mg/dL 70-110 H Lab Interpretation (test code = Abnormal 42050-5) [facility] GLUCOSE (AUTOMATED)2022-08-30 13:07:24 Test Item Value Reference Range Interpretation Comments POCT GLU (test code = 1749520970) 130 mg/dL 70-110 H Lab Interpretation (test code = Abnormal 24617-1) [facility] GLUCOSE (AUTOMATED)2022-08-30 12:05:08 Test Item Value Reference Range Interpretation Comments POCT GLU (test code = 7019251508) 136 mg/dL 70-110 H Lab Interpretation (test code = Abnormal 23267-6) [facility] GLUCOSE (AUTOMATED)2022-08-30 11:08:07 Test Item Value Reference Range Interpretation Comments POCT GLU (test code = 4141617637) 115 mg/dL 70-110 H Lab Interpretation (test code = Abnormal 09569-8) [facility] GLUCOSE (AUTOMATED)2022-08-30 10:21:27 Test Item Value Reference Range Interpretation Comments POCT GLU (test code = 0819325942) 111 mg/dL 70-110 H Lab Interpretation (test code = Abnormal 10010-2) [facility] GLUCOSE (AUTOMATED)2022-08-30 09:12:24 Test Item Value Reference Range Interpretation Comments POCT GLU (test code = 0058632450) 121 mg/dL 70-110 H Lab Interpretation (test code = Abnormal 54382-2) [facility] GLUCOSE (AUTOMATED)2022-08-30 08:11:01 Test Item Value Reference Range Interpretation Comments POCT GLU (test code = 3331203377) 137 mg/dL 70-110 H Lab Interpretation (test code = Abnormal 55413-6) [facility])2022-08-30 07:47:30 Test Item Value Reference Range Interpretation Comments POCT GLU (test code = 3594552900) 134 mg/dL 70-110 H Lab Interpretation (test code = Abnormal 30190-3) [facility] ([facility])2022-08-30 06:32:02 Test Item Value Reference Range Interpretation Comments POCT GLU (test code = 7003956536) 128 mg/dL 70-110 H Lab Interpretation (test code = Abnormal 29315-5) [facility])2022-08-30 05:05:59 Test Item Value Reference Range Interpretation Comments POCT GLU (test code = 7923148285) 157 mg/dL 70-110 H Lab Interpretation (test code = Abnormal 26890-2) [facility] GLUCOSE (AUTOMATED)2022-08-30 04:14:51 Test Item Value Reference Range Interpretation Comments POCT GLU (test code = 0815449999) 181 mg/dL 70-110 H Lab Interpretation (test code = Abnormal 57043-1) [facility] GLUCOSE (AUTOMATED)2022-08-30 03:07:48 Test Item Value Reference Range Interpretation Comments POCT GLU (test code = 7149044347) 150 mg/dL 70-110 H Lab Interpretation (test code = Abnormal 28557-6) [facility] GLUCOSE (AUTOMATED)2022-08-30 02:26:22 Test Item Value Reference Range Interpretation Comments POCT GLU (test code = 0249788715) 118 mg/dL 70-110 H Lab Interpretation (test code = Abnormal 34874-6) [facility] GLUCOSE (AUTOMATED)2022-08-30 01:05:37 Test Item Value Reference Range Interpretation Comments POCT GLU (test code = 7644942748) 150 mg/dL 70-110 H Lab Interpretation (test code = Abnormal 38352-7) [facility] GLUCOSE (AUTOMATED)2022-08-30 00:05:56 Test Item Value Reference Range Interpretation Comments POCT GLU (test code = 2826240926) 206 mg/dL 70-110 H Lab Interpretation (test code = Abnormal 44131-7) [facility] GLUCOSE (AUTOMATED)2022-08-29 23:02:06 Test Item Value Reference Range Interpretation Comments POCT GLU (test code = 1016051696) 172 mg/dL 70-110 H Lab Interpretation (test code = Abnormal 74458-3) [facility] GLUCOSE (AUTOMATED)2022-08-29 22:07:12 Test Item Value Reference Range Interpretation Comments POCT GLU (test code = 7629005523) 110 mg/dL 70-110 Lab Interpretation (test code = Normal 77647-6) [facility] GLUCOSE (AUTOMATED)2022-08-29 21:14:06 Test Item Value Reference Range Interpretation Comments POCT GLU (test code = 3505340871) 118 mg/dL 70-110 H Lab Interpretation (test code = Abnormal 74189-7) [facility] GLUCOSE (AUTOMATED)2022-08-29 20:09:27 Test Item Value Reference Range Interpretation Comments POCT GLU (test code = 1777957306) 104 mg/dL 70-110 Lab Interpretation (test code = Normal 65611-6) [facility] GLUCOSE (AUTOMATED)2022-08-29 19:11:06 Test Item Value Reference Range Interpretation Comments POCT GLU (test code = 5027782822) 101 mg/dL 70-110 Lab Interpretation (test code = Normal 01962-1) [facility] GLUCOSE (AUTOMATED)2022-08-29 18:15:25 Test Item Value Reference Range Interpretation Comments POCT GLU (test code = 3274251528) 125 mg/dL 70-110 H Lab Interpretation (test code = Abnormal 78687-5) [facility] GLUCOSE (AUTOMATED)2022-08-29 17:11:12 Test Item Value Reference Range Interpretation Comments POCT GLU (test code = 4028774787) 116 mg/dL 70-110 H Lab Interpretation (test code = Abnormal 93821-5) [facility] GLUCOSE (AUTOMATED)2022-08-29 16:16:36 Test Item Value Reference Range Interpretation Comments POCT GLU (test code = 3657170430) 139 mg/dL 70-110 H Lab Interpretation (test code = Abnormal 22350-1) [facility] GLUCOSE (AUTOMATED)2022-08-29 15:08:34 Test Item Value Reference Range Interpretation Comments POCT GLU (test code = 4900689786) 159 mg/dL 70-110 H Lab Interpretation (test code = Abnormal 20011-0) [facility] GLUCOSE (AUTOMATED)2022-08-29 14:18:05 Test Item Value Reference Range Interpretation Comments POCT GLU (test code = 6184455644) 147 mg/dL 70-110 H Lab Interpretation (test code = Abnormal 70246-4) [facility] GLUCOSE (AUTOMATED)2022-08-29 13:22:04 Test Item Value Reference Range Interpretation Comments POCT GLU (test code = 1604694893) 151 mg/dL 70-110 H Lab Interpretation (test code = Abnormal 23503-0) [facility] GLUCOSE (AUTOMATED)2022-08-29 12:11:27 Test Item Value Reference Range Interpretation Comments POCT GLU (test code = 8533322132) 163 mg/dL 70-110 H Lab Interpretation (test code = Abnormal 98873-2) [facility] GLUCOSE (AUTOMATED)2022-08-29 10:58:04 Test Item Value Reference Range Interpretation Comments POCT GLU (test code = 3029001423) 162 mg/dL 70-110 H Lab Interpretation (test code = Abnormal 09933-0) [facility] GLUCOSE (AUTOMATED)2022-08-29 10:03:25 Test Item Value Reference Range Interpretation Comments POCT GLU (test code = 1480807616) 184 mg/dL 70-110 H Lab Interpretation (test code = Abnormal 88654-4) [facility] GLUCOSE (AUTOMATED)2022-08-29 09:10:58 Test Item Value Reference Range Interpretation Comments POCT GLU (test code = 0780836970) 176 mg/dL 70-110 H Lab Interpretation (test code = Abnormal 88447-8) [facility] GLUCOSE (AUTOMATED)2022-08-29 08:04:18 Test Item Value Reference Range Interpretation Comments POCT GLU (test code = 7065424551) 158 mg/dL 70-110 H Lab Interpretation (test code = Abnormal 35780-9) [facility] GLUCOSE (AUTOMATED)2022-08-29 07:09:28 Test Item Value Reference Range Interpretation Comments POCT GLU (test code = 9905136965) 137 mg/dL 70-110 H Lab Interpretation (test code = Abnormal 14480-4) [facility]2022-08-29 06:07:41 Test Item Value Reference Range Interpretation Comments POCT GLU (test code = 0072801141) 136 mg/dL 70-110 H Lab Interpretation (test code = Abnormal 62193-8) [facility] GLUCOSE (AUTOMATED)2022-08-29 05:12:21 Test Item Value Reference Range Interpretation Comments POCT GLU (test code = 4541607925) 151 mg/dL 70-110 H Lab Interpretation (test code = Abnormal 55770-0) [facility] GLUCOSE (AUTOMATED)2022-08-29 04:11:30 Test Item Value Reference Range Interpretation Comments POCT GLU (test code = 6200014692) 166 mg/dL 70-110 H Lab Interpretation (test code = Abnormal 86166-8) [facility] GLUCOSE (AUTOMATED)2022-08-29 03:21:25 Test Item Value Reference Range Interpretation Comments POCT GLU (test code = 6440571607) 185 mg/dL 70-110 H Lab Interpretation (test code = Abnormal 62503-5) [facility] GLUCOSE (AUTOMATED)2022-08-29 02:13:24 Test Item Value Reference Range Interpretation Comments POCT GLU (test code = 2309510010) 139 mg/dL 70-110 H Lab Interpretation (test code = Abnormal 71050-4) [facility] GLUCOSE (AUTOMATED)2022-08-29 01:03:43 Test Item Value Reference Range Interpretation Comments POCT GLU (test code = 7334818781) 144 mg/dL 70-110 H Lab Interpretation (test code = Abnormal 92362-8) [facility] GLUCOSE (AUTOMATED)2022-08-29 00:27:52 Test Item Value Reference Range Interpretation Comments POCT GLU (test code = 7037780866) 193 mg/dL 70-110 H Lab Interpretation (test code = Abnormal 46758-3) [facility] GLUCOSE (AUTOMATED)2022-08-28 23:18:19 Test Item Value Reference Range Interpretation Comments POCT GLU (test code = 5437222076) 162 mg/dL 70-110 H Lab Interpretation (test code = Abnormal 04911-0) [facility] GLUCOSE (AUTOMATED)2022-08-28 22:25:29 Test Item Value Reference Range Interpretation Comments POCT GLU (test code = 6010328099) 163 mg/dL 70-110 H Lab Interpretation (test code = Abnormal 88887-9) [facility] GLUCOSE (AUTOMATED)2022-08-28 21:06:41 Test Item Value Reference Range Interpretation Comments POCT GLU (test code = 5296270205) 179 mg/dL 70-110 H Lab Interpretation (test code = Abnormal 40179-7) [facility] GLUCOSE (AUTOMATED)2022-08-28 20:08:24 Test Item Value Reference Range Interpretation Comments POCT GLU (test code = 4057243988) 159 mg/dL 70-110 H Lab Interpretation (test code = Abnormal 26643-9) [facility] GLUCOSE (AUTOMATED)2022-08-28 19:08:09 Test Item Value Reference Range Interpretation Comments POCT GLU (test code = 7804386517) 129 mg/dL 70-110 H Lab Interpretation (test code = Abnormal 18598-6) [facility] GLUCOSE (AUTOMATED)2022-08-28 18:16:18 Test Item Value Reference Range Interpretation Comments POCT GLU (test code = 1159890510) 106 mg/dL 70-110 Lab Interpretation (test code = Normal 39029-2) [facility] GLUCOSE (AUTOMATED)2022-08-28 17:06:55 Test Item Value Reference Range Interpretation Comments POCT GLU (test code = 4743064420) 136 mg/dL 70-110 H Lab Interpretation (test code = Abnormal 95666-9) [facility] GLUCOSE (AUTOMATED)2022-08-28 16:05:13 Test Item Value Reference Range Interpretation Comments POCT GLU (test code = 6774381885) 141 mg/dL 70-110 H Lab Interpretation (test code = Abnormal 21749-4) [facility] GLUCOSE (AUTOMATED)2022-08-28 15:04:57 Test Item Value Reference Range Interpretation Comments POCT GLU (test code = 4569902394) 168 mg/dL 70-110 H Lab Interpretation (test code = Abnormal 74690-8) [facility] GLUCOSE (AUTOMATED)2022-08-28 14:10:31 Test Item Value Reference Range Interpretation Comments POCT GLU (test code = 3761695932) 163 mg/dL 70-110 H Lab Interpretation (test code = Abnormal 93776-9) [facility] GLUCOSE (AUTOMATED)2022-08-28 13:07:27 Test Item Value Reference Range Interpretation Comments POCT GLU (test code = 9869122712) 133 mg/dL 70-110 H Lab Interpretation (test code = Abnormal 91853-7) [facility] GLUCOSE (AUTOMATED)2022-08-28 12:32:10 Test Item Value Reference Range Interpretation Comments POCT GLU (test code = 9711598532) 150 mg/dL 70-110 H Lab Interpretation (test code = Abnormal 82995-1) [facility] 12:14:56 Test Item Value Reference Range Interpretation Comments TRIG (test code = 6796689787) 1527 mg/dL 30-170 H Lab Interpretation (test code = Abnormal 18214-9) [facility] (NA, K, CL, CO2, GLUCOSE, BUN, CREATININE, CA)2022-08-28 12:02:28 Test Item Value Reference Range Interpretation Comments NA (test code = 137 mmol/L 135-145 3696695304) K (test code = 4.0 mmol/L 3.5-5.0 9767666676) CL (test code = 112 mmol/L 98-108 H 9566717839) CO2 TOTAL (test code = 19 mmol/L 23-31 L 7867447316) AGAP (test code = 6 2-16 6253017208) BUN (test code = 9 mg/dL 7-23 7539416923) GLUCOSE (test code = 157 mg/dL 70-110 H 1856841955) CREATININE (test code = 0.53 mg/dL 0.50-1.04 2700860402) CALCIUM (test code = 7.2 mg/dL 8.6-10.6 L 6205369797) eGFR (test code = 125.3 mL/min/1.73m2 3032008962) CALVIN (test code = CALVIN) Association of [...] tests). Lab Interpretation Abnormal (test code = 67406-0) [facility] GLUCOSE (AUTOMATED)2022-08-28 11:34:27 Test Item Value Reference Range Interpretation Comments POCT GLU (test code = 1075877020) 139 mg/dL 70-110 H Lab Interpretation (test code = Abnormal 30850-1) [facility] GLUCOSE (AUTOMATED)2022-08-28 10:08:58 Test Item Value Reference Range Interpretation Comments POCT GLU (test code = 7709800306) 159 mg/dL 70-110 H Lab Interpretation (test code = Abnormal 39540-4) [facility] GLUCOSE (AUTOMATED)2022-08-28 09:03:44 Test Item Value Reference Range Interpretation Comments POCT GLU (test code = 7675793570) 138 mg/dL 70-110 H Lab Interpretation (test code = Abnormal 63800-8) [facility] GLUCOSE (AUTOMATED)2022-08-28 08:09:23 Test Item Value Reference Range Interpretation Comments POCT GLU (test code = 9136543040) 134 mg/dL 70-110 H Lab Interpretation (test code = Abnormal 26922-7) [facility]2022-08-28 06:02:02 Test Item Value Reference Range Interpretation Comments POCT GLU (test code = 4249895641) 159 mg/dL 70-110 H Lab Interpretation (test code = Abnormal 42939-1) [facility] GLUCOSE (AUTOMATED)2022-08-28 05:07:18 Test Item Value Reference Range Interpretation Comments POCT GLU (test code = 6337289340) 132 mg/dL 70-110 H Lab Interpretation (test code = Abnormal 71628-8) [facility] GLUCOSE (AUTOMATED)2022-08-28 04:03:46 Test Item Value Reference Range Interpretation Comments POCT GLU (test code = 5575725128) 132 mg/dL 70-110 H Lab Interpretation (test code = Abnormal 61225-5) [facility] GLUCOSE (AUTOMATED)2022-08-28 03:06:02 Test Item Value Reference Range Interpretation Comments POCT GLU (test code = 6821390116) 161 mg/dL 70-110 H Lab Interpretation (test code = Abnormal 46974-9) [facility] GLUCOSE (AUTOMATED)2022-08-28 02:11:59 Test Item Value Reference Range Interpretation Comments POCT GLU (test code = 9042980869) 152 mg/dL 70-110 H Lab Interpretation (test code = Abnormal 53043-5) [facility] GLUCOSE (AUTOMATED)2022-08-28 01:13:55 Test Item Value Reference Range Interpretation Comments POCT GLU (test code = 5554489215) 154 mg/dL 70-110 H Lab Interpretation (test code = Abnormal 03244-0) [facility] GLUCOSE (AUTOMATED)2022-08-28 00:04:53 Test Item Value Reference Range Interpretation Comments POCT GLU (test code = 1472610069) 171 mg/dL 70-110 H Lab Interpretation (test code = Abnormal 28982-7) [facility] GLUCOSE (AUTOMATED)2022-08-27 23:36:39 Test Item Value Reference Range Interpretation Comments POCT GLU (test code = 3043271089) 192 mg/dL 70-110 H Lab Interpretation (test code = Abnormal 40068-6) [facility] GLUCOSE (AUTOMATED)2022-08-27 22:12:56 Test Item Value Reference Range Interpretation Comments POCT GLU (test code = 9220545554) 209 mg/dL 70-110 H Lab Interpretation (test code = Abnormal 14584-7) [facility] GLUCOSE (AUTOMATED)2022-08-27 21:04:44 Test Item Value Reference Range Interpretation Comments POCT GLU (test code = 9412506817) 173 mg/dL 70-110 H Lab Interpretation (test code = Abnormal 61904-7) [facility] GLUCOSE (AUTOMATED)2022-08-27 20:46:25 Test Item Value Reference Range Interpretation Comments POCT GLU (test code = 4214014297) 104 mg/dL 70-110 Lab Interpretation (test code = Normal 34273-9) [facility] GLUCOSE (AUTOMATED)2022-08-27 19:02:38 Test Item Value Reference Range Interpretation Comments POCT GLU (test code = 3746260991) 156 mg/dL 70-110 H Lab Interpretation (test code = Abnormal 26793-0) [facility] GLUCOSE (AUTOMATED)2022-08-27 18:04:27 Test Item Value Reference Range Interpretation Comments POCT GLU (test code = 2961367206) 146 mg/dL 70-110 H Lab Interpretation (test code = Abnormal 55656-5) [facility] GLUCOSE (AUTOMATED)2022-08-27 17:01:16 Test Item Value Reference Range Interpretation Comments POCT GLU (test code = 9075298642) 152 mg/dL 70-110 H Lab Interpretation (test code = Abnormal 35133-7) [facility] GLUCOSE (AUTOMATED)2022-08-27 16:14:54 Test Item Value Reference Range Interpretation Comments POCT GLU (test code = 6763634737) 173 mg/dL 70-110 H Lab Interpretation (test code = Abnormal 94029-3) [facility] GLUCOSE (AUTOMATED)2022-08-27 15:15:33 Test Item Value Reference Range Interpretation Comments POCT GLU (test code = 7567338078) 128 mg/dL 70-110 H Lab Interpretation (test code = Abnormal 00800-5) [facility] GLUCOSE (AUTOMATED)2022-08-27 14:21:55 Test Item Value Reference Range Interpretation Comments POCT GLU (test code = 3182138136) 128 mg/dL 70-110 H Lab Interpretation (test code = Abnormal 54780-2) [facility] GLUCOSE (AUTOMATED)2022-08-27 13:24:52 Test Item Value Reference Range Interpretation Comments POCT GLU (test code = 1373631204) 140 mg/dL 70-110 H Lab Interpretation (test code = Abnormal 46723-7) [facility] GLUCOSE (AUTOMATED)2022-08-27 12:09:47 Test Item Value Reference Range Interpretation Comments POCT GLU (test code = 6371406271) 167 mg/dL 70-110 H Lab Interpretation (test code = Abnormal 15659-1) [facility] GLUCOSE (AUTOMATED)2022-08-27 11:09:03 Test Item Value Reference Range Interpretation Comments POCT GLU (test code = 7507317193) 148 mg/dL 70-110 H Lab Interpretation (test code = Abnormal 27231-4) [facility] GLUCOSE (AUTOMATED)2022-08-27 10:16:49 Test Item Value Reference Range Interpretation Comments POCT GLU (test code = 7066485700) 129 mg/dL 70-110 H Lab Interpretation (test code = Abnormal 94581-2) [facility] GLUCOSE (AUTOMATED)2022-08-27 09:21:11 Test Item Value Reference Range Interpretation Comments POCT GLU (test code = 0959920537) 145 mg/dL 70-110 H Lab Interpretation (test code = Abnormal 22428-5) [facility] GLUCOSE (AUTOMATED)2022-08-27 07:01:10 Test Item Value Reference Range Interpretation Comments POCT GLU (test code = 3542678597) 126 mg/dL 70-110 H Lab Interpretation (test code = Abnormal 78495-1) [facility] GLUCOSE (AUTOMATED)2022-08-27 06:14:53 Test Item Value Reference Range Interpretation Comments POCT GLU (test code = 3991987664) 154 mg/dL 70-110 H Lab Interpretation (test code = Abnormal 05826-9) [facility] 05:41:57 Test Item Value Reference Range Interpretation Comments LIPASE (test code = 1224923435) 197 U/L 0-220 Lab Interpretation (test code = Normal 01692-0) [facility] GLUCOSE (AUTOMATED)2022-08-27 05:13:21 Test Item Value Reference Range Interpretation Comments POCT GLU (test code = 0223023042) 163 mg/dL 70-110 H Lab Interpretation (test code = Abnormal 23677-1) [facility] Houston[facility]-DENSITY LIPOPROTEIN, [id number] 04:16:58 Test Item Value Reference Range Interpretation Comments dLDL Chol (test code = 66328-8) 63 mg/dL <=130 Lab Interpretation (test code = Normal 66636-9) [facility] HoustonOSMOLALITY, SERUM OR [id number] 04:12:04 Test Item Value Reference Range Interpretation Comments OSMOLALITY (test code = 319 See_Comment H [Au tomated message] 2692-2) The system [employer] generated this result transmitted ref erence range: 278 - 30 5 mOsm/kg. The reference range was not used to int erpret this result as normal/abnormal . Lab Interpretation (test Abnormal code = 98562-9) [facility] GLUCOSE (AUTOMATED)2022-08-27 03:17:19 Test Item Value Reference Range Interpretation Comments POCT GLU (test code = 7960475945) 244 mg/dL 70-110 H Lab Interpretation (test code = Abnormal 48598-2) [facility] Met[facility] (NA, K, CL, CO2, GLUCOSE, BUN, CREATININE, CA)2022-08-27 02:55:11 Test Item Value Reference Range Interpretation Comments NA (test code = 134 mmol/L 135-145 L 3221299080) K (test code = 4.3 mmol/L 3.5-5.0 0816804181) CL (test code = 103 mmol/L 98-108 0014996608) CO2 TOTAL (test code = 19 mmol/L 23-31 L 8053922694) AGAP (test code = 12 2-16 5834802683) BUN (test code = 25 mg/dL 7-23 H 4190253271) GLUCOSE (test code = 277 mg/dL 70-110 H 8879575737) CREATININE (test code = 0.77 mg/dL 0.50-1.04 9598632061) CALCIUM (test code = 8.2 mg/dL 8.6-10.6 L 7642208506) eGFR (test code = 81.4 mL/min/1.73m2 3449324355) CALVIN (test code = CALVIN) Association of [...] tests). Lab Interpretation Abnormal (test code = 06293-2) [facility] GLUCOSE (AUTOMATED)2022-08-27 02:03:06 Test Item Value Reference Range Interpretation Comments POCT GLU (test code = 4767701913) 322 mg/dL 70-110 H Lab Interpretation (test code = Abnormal 01537-7) [facility] GLUCOSE (AUTOMATED)2022-08-27 01:25:59 Test Item Value Reference Range Interpretation Comments POCT GLU (test code = 3576617163) 324 mg/dL 70-110 H Lab Interpretation (test code = Abnormal 56810-3) [facility] GLUCOSE (AUTOMATED)2022-08-27 00:32:23 Test Item Value Reference Range Interpretation Comments POCT GLU (test code = 4498080066) 372 mg/dL 70-110 H Lab Interpretation (test code = Abnormal 74808-1) [facility] GLUCOSE (AUTOMATED)2022-08-27 00:00:02 Test Item Value Reference Range Interpretation Comments POCT GLU (test code = 8467982227) 382 mg/dL 70-110 H Lab Interpretation (test code = Abnormal 36719-3) [facility] GLUCOSE (AUTOMATED)2022-08-26 23:10:50 Test Item Value Reference Range Interpretation Comments POCT GLU (test code = 1412173946) 409 mg/dL 70-110 H Lab Interpretation (test code = Abnormal 83483-6) [facility] (54782)(TOTAL CHOLESTEROL, TRIGLYCERIDES, HDL)2022-08-26 22:34:41 Test Item Value Reference Range Interpretation Comments CHOL (test code = 381 mg/dL 120-200 H 9522495511) HDL (test code = 25 mg/dL >=50 L 3637197643) HDLC RATIO (test code = 15.2 <=4.5 H 7793325451) TRIG (test code = 30-170 H 2699441258) LDL CHOL (test code = Unable to calculate 82206-0) LDL due to elev ated triglyceride le jossy greater than 40 0 mg/dL. VLDL (test code = Unable to calculate 1589876410) VLDL due to [place] vated triglyceride le jossy greater than 71 0 mg/dL. Lab Interpretation Abnormal (test code = 89763-3) [facility] GLUCOSE (AUTOMATED)2022-08-26 22:11:52 Test Item Value Reference Range Interpretation Comments POCT GLU (test code = 0373805552) 375 mg/dL 70-110 H Lab Interpretation (test code = Abnormal 52012-6) [facility]COMP[facility] METABOLIC PANEL (70215)2022-08-26 22:06:45 Test Item Value Reference Range Interpretation Comments NA (test code = 131 mmol/L 135-145 L 9700525642) K (test code = 5.4 mmol/L 3.5-5.0 H 9044055715) CL (test code = 95 mmol/L 98-108 L 0169131863) CO2 TOTAL (test code = 9 mmol/L 23-31 L 8440454483) AGAP (test code = 27 2-16 H 7741511460) BUN (test code = 29 mg/dL 7-23 H 9846175635) GLUCOSE (test code = 444 mg/dL 70-110 H 4238968893) CREATININE (test code = 1.01 mg/dL 0.50-1.04 9890098852) TOTAL BILI (test code = 0.9 mg/dL 0.1-1.2 9295185166) CALCIUM (test code = 9.2 mg/dL 8.6-10.6 0585921223) T PROTEIN (test code = 9.4 g/dL 6.3-8.2 H 7275985913) ALBUMIN (test code = 4.8 g/dL 3.5-5.0 7351940932) ALK PHOS (test code = 79 U/L 34-122 2844529646) ALTv (test code = 43 U/L 5-35 H 1742-6) AST(SGOT) (test code = 42 U/L 13-40 H 5093081137) eGFR (test code = 59.5 mL/min/1.73m2 3062206902) CALVIN (test code = CALVIN) Association of [...] tests). Lab Interpretation Abnormal (test code = 94053-2) [facility]2023-[facility]-16 22:02:31 Test Item Value Reference Range Interpretation Comments MAGNESIUM (test code = 0983277734) 1.7 mg/dL 1.7-2.4 Lab Interpretation (test code = Normal 15439-3) [facility] WITH [id number] 21:22:43 Test Item Value Reference Range Interpretation Comments WBC (test code = 9.75 See_Comment [Automated 5690-2) message] The sy stem which generated this result transmitted reference range : 4.30 - 11.10 10*3/?L. The reference range was not used to interpret this result as normal/abnormal . RBC (test code = 4.71 See_Comment [Automated 409-8) message] The sy stem which generated this [...] RDW-SD (test code = 43.3 fL 39.0-49.9 28358-2) RDW-CV (test code = 14.4 % 12.0-15.5 788-0) PLT (test code = 371 See_Comment H [Automated 777-3) message] The sy stem which generated this result transmitted reference range : 166 - 358 10*3/ ?L. The reference r doretha was not used to interpret this result as normal/abnormal . MPV (test code = 10.2 fL 9.5-12.9 11931-1) NRBC/100 WBC (test 0.0 See_Comment [Automat ed code = 2299799844) message] The system which generated this result transmitted reference range : 0.0 - 10.0 /100 WBCs. The refer ence range was not u sed to interpret th is result as normal/abnormal . NRBC x10^3 (test code See_Comment [Auto mated = 8908550533) message] The s ystem which generated this result transmitted reference range : 10*3/?L. The reference range was not used to interpret this result as normal/abnormal . GRAN MAT (NEUT) % 52.7 % (test code = 770-8) IMM GRAN % (test code 1.10 % = 0987422669) LYMPH % (test code = 36.6 % 736-9) MONO % (test code = 6.5 % 5905-5) EOS % (test code = 1.6 % 713-8) BASO % (test code = 1.5 % 706-2) GRAN MAT x10^3(ANC) 5.13 10*3/uL 1.88-7.09 (test code = 7298306239) IMM GRAN x10^3 (test 0.11 10*3/uL 0.00-0.06 H code = 7104667243) LYMPH x10^3 (test code 3.57 10*3/uL 1.32-3.29 H = 731-0) MONO x10^3 (test code 0.63 10*3/uL 0.33-0.92 = 742-7) EOS x10^3 (test code = 0.16 10*3/uL 0.03-0.39 711-2) BASO x10^3 (test code 0.15 10*3/uL 0.01-0.07 H = 704-7) Lab Interpretation Abnormal (test code = 24199-9) [facility]2022-08-26 20:35:54 Test Item Value Reference Range Interpretation Comments POCT GLU (test code = 6229811315) 400 mg/dL 70-110 H Lab Interpretation (test code = Abnormal 61185-1) [facility] Metabolic Panel (Na, K, Cl, CO2, Glucose, BUN, Creatinine, Ca)2022-06-22 03:47:00 Test Item Value Reference Range Interpretation Comments NA (test code = 136 mmol/L 135-145 2225442635) K (test code = 3.8 mmol/L 3.5-5.0 8123997025) CL (test code = 97 mmol/L 98-108 L 7303125766) CO2 TOTAL (test code = 24 mmol/L 23-31 9817739318) AGAP (test code = 2-16 8184024298) BUN (test code = 34 mg/dL 7-23 H 2062973054) GLUCOSE (test code = 270 mg/dL 70-110 H 7688993164) CREATININE (test code = 0.93 mg/dL 0.50-1.04 6445058581) CALCIUM (test code = 10.6 mg/dL 8.6-10.6 0159560299) eGFR (test code = mL/min/1.73m2 5410704432) CALVIN (test code = CALVIN) Association of [...] tests). Lab Interpretation Abnormal (test code = 91127-8) [facility] GLUCOSE (AUTOMATED)2022-06-22 03:46:00 Test Item Value Reference Range Interpretation Comments POCT GLU (test code = 0981996683) 256 mg/dL 70-110 H Lab Interpretation (test code = Abnormal 63479-1) [facility] HoustonGlycosylated Hemoglobin (A1C)2022-06-22 03:08:04 Test Item Value Reference Range Interpretation Comments HGB A1C (test code = 12.0 % 4.0-5.7 H 4548-4) CALVIN (test code = CALVIN) Reference RangesNormal: <5.7%Prediabetes: 5.7 - 6.4%Diabetes: > 6.5% Lab Interpretation (test Abnormal code = 42881-4) [facility] GLUCOSE (AUTOMATED)2022-06-22 02:44:02 Test Item Value Reference Range Interpretation Comments POCT GLU (test code = 6685360445) 265 mg/dL 70-110 H Lab Interpretation (test code = Abnormal 98018-5) [facility] GLUCOSE(AGE >30DAYS)2022-06-22 02:39:00 Test Item Value Reference Range Interpretation Comments POCT Glu (age>30days) (test code = 265 mg/dL 70-110 A 3342) Lab Interpretation (test code = Abnormal 79519-1) [facility] HoustonMagnesium [id number] 02:25:21 Test Item Value Reference Range Interpretation Comments MAGNESIUM (test code = 7471541728) 1.5 mg/dL 1.7-2.4 L Lab Interpretation (test code = Abnormal 30522-9) [facility] HoustonPhosphorus [id number] 02:25:01 Test Item Value Reference Range Interpretation Comments PHOSPHORUS (test code = 3990499526) 5.7 mg/dL 2.5-5.0 H Lab Interpretation (test code = Abnormal 63350-4) [facility] GLUCOSE (AUTOMATED)2022-06-22 01:44:15 Test Item Value Reference Range Interpretation Comments POCT GLU (test code = 2390500834) 298 mg/dL 70-110 H Lab Interpretation (test code = Abnormal 98351-3) [facility] WITH [id number] 01:28:41 Test Item Value Reference Range Interpretation [...] (test code = 37.1 fL 39.0-49.9 L 65823-3) RDW-CV (test code = 12.5 % 12.0-15.5 788-0) PLT (test code = See_Comment [Automated 777-3) message] The sy stem which generated this result transmitted reference range : 166 - 358 10*3/ ?L. The reference r doretha was not used to interpret this result as normal/abnormal . MPV (test code = 9.9 fL 9.5-12.9 57066-0) NRBC/100 WBC (test See_Comment [Automat ed code = 5161016153) message] The system which generated this result transmitted reference range : 0.0 - 10.0 /100 WBCs. The refer ence range was not u sed to interpret th is result as normal/abnormal . NRBC x10^3 (test code See_Comment [Auto mated = 9371321060) message] The s [employer] which generated this result transmitted reference range : 10*3/?L. The reference range was not used to interpret this result as normal/abnormal . GRAN MAT (NEUT) % 40.5 % (test code = 770-8) IMM GRAN % (test code 0.90 % = 1045447745) LYMPH % (test code = 48.0 % 736-9) MONO % (test code = 8.5 % 5905-5) EOS % (test code = 1.1 % 713-8) BASO % (test code = 1.0 % 706-2) GRAN MAT x10^3(ANC) 4.35 10*3/uL 1.88-7.09 (test code = 8340210043) IMM GRAN x10^3 (test 0.10 10*3/uL 0.00-0.06 H code = 8758292224) LYMPH x10^3 (test code 5.17 10*3/uL 1.32-3.29 H = 731-0) MONO x10^3 (test code 0.92 10*3/uL 0.33-0.92 = 742-7) EOS x10^3 (test code = 0.12 10*3/uL 0.03-0.39 711-2) BASO x10^3 (test code 0.11 10*3/uL 0.01-0.07 H = 704-7) Lab Interpretation Abnormal (test code = 89051-6) [id number] 00:34[facility]27 Test Item Value Reference Interpretation Comments Range TROPONIN I (test 0.000 ng/mL See_Comment [Automated code = 8905766406) message] The system which generated this result [...] biotin. Lab Interpretation Normal (test code = 61124-8) [facility] [id number] 00:31:09 Test Item Value Reference Range Interpretation Comments NT-proBNP (test code 21 pg/mL See_Comment [Autom ated = 1744256952) message] The system which generated this result transmitted reference range : <=125. The reference range was not used to interpret this result as normal/abnormal . CALVIN (test code = CALVIN) Biotin has been reported to cause a negative bias, interpret results relative to patient's use of biotin. Lab Interpretation Normal (test code = 36278-2) [facility] METABOLIC PANEL (NA, K, CL, CO2, GLUCOSE, BUN, CREATININE, CA)2022-06-22 00:22:03 Test Item Value Reference Range Interpretation Comments NA (test code = 133 mmol/L 135-145 L 7911020723) K (test code = 4.7 mmol/L 3.5-5.0 5607330499) CL (test code = 91 mmol/L 98-108 L 2203681691) CO2 TOTAL (test code = 24 mmol/L 23-31 9081394609) AGAP (test code = 2-16 H 4984345952) BUN (test code = 37 mg/dL 7-23 H 7008056652) GLUCOSE (test code = 385 mg/dL 70-110 H 3814868550) CREATININE (test code = 1.09 mg/dL 0.50-1.04 H 2186707608) CALCIUM (test code = 11.5 mg/dL 8.6-10.6 H 5228677229) eGFR (test code = mL/min/1.73m2 3497696777) CALVIN (test code = CALVIN) Association of [...] tests). Lab Interpretation Abnormal (test code = 50661-4) [facility]OL[facility] [id number] 00:00:00 Test Item Value Reference Range Interpretation Comments GLUCOSE (test code = 2217) 259 MG/DL BUN (test code = 2208) 17 MG/DL CREATININE (test code = 2214) 0.72 MG/DL eGFR (2020 CKD-EPI) (test 106 ML/MIN/1.73 code = 72246) CALC BUN/CREAT (test code = 24 RATIO [...] code = 2219) 38 U/L COMPREHENSIVE METABOLIC [id number] 00:00:00 Test Item Value Reference Range Interpretation Comments GLUCOSE (test code = 2217) 259 MG/DL BUN (test code = 2208) 17 MG/DL CREATININE (test code = 2214) 0.72 MG/DL eGFR (2020 CKD-EPI) (test 106 ML/MIN/1.73 code = 78631) CALC BUN/CREAT (test code = 24 RATIO [...] (test code = 2219) 38 U/L LIPID [id number] 00:00:00 Test Item Value Reference Range Interpretation Comments CHOLESTEROL (test code = 2210) 196 MG/DL TRIGLYCERIDES (test code = 2232) 500 MG/DL HDL CHOLESTEROL (test code = 31 MG/DL 0) CALC LDL CHOL (test code = 2237) (NOTE) MG/DL RISK RATIO LDL/HDL (test code = (NOTE) RATIO 2238) LIPID [id number] 00:00:00 Test Item Value Reference Range Interpretation Comments CHOLESTEROL (test code = 2210) 196 MG/DL TRIGLYCERIDES (test code = 2232) 500 MG/DL HDL CHOLESTEROL (test code = 31 MG/DL 2220) CALC LDL CHOL (test code = 2237) (NOTE) MG/DL RISK RATIO LDL/HDL (test code = (NOTE) RATIO 2238) HEMOGLOBIN [id number] 00:00:00 Test Item Value Reference Range Interpretation Comments HEMOGLOBIN A1c (test code = 97227) 11.0 % HEMOGLOBIN [id number] 00:00:00 Test Item Value Reference Range Interpretation Comments HEMOGLOBIN A1c (test code = 62976) 11.0 % HEMOGLOBIN [id number] 00:00:00 Test Item Value Reference Range Interpretation Comments HEMOGLOBIN A1c (test code = 56416) 11.0 % COMPREHENSIVE METABOLIC [id number] 00:00:00 Test Item Value Reference Range Interpretation Comments GLUCOSE (test code = 2217) 259 MG/DL BUN (test code = 2208) 17 MG/DL CREATININE (test code = 2214) 0.72 MG/DL eGFR (2020 CKD-EPI) (test 106 ML/MIN/1.73 code = 09847) CALC BUN/CREAT (test code = 24 RATIO [...] code = 2219) 38 U/L COMPREHENSIVE METABOLIC [id number] 00:00:00 Test Item Value Reference Range Interpretation Comments GLUCOSE (test code = 2217) 259 MG/DL BUN (test code = 2208) 17 MG/DL CREATININE (test code = 2214) 0.72 MG/DL eGFR (2020 CKD-EPI) (test 106 ML/MIN/1.73 code = 58873) CALC BUN/CREAT (test code = 24 RATIO [...] (test code = 2219) 38 U/L LIPID [id number] 00:00:00 Test Item Value Reference Range Interpretation Comments CHOLESTEROL (test code = 2210) 196 MG/DL TRIGLYCERIDES (test code = 2232) 500 MG/DL HDL CHOLESTEROL (test code = 31 MG/DL 2220) CALC LDL CHOL (test code = 2237) (NOTE) MG/DL RISK RATIO LDL/HDL (test code = (NOTE) RATIO 2238) LIPID [id number] 00:00:00 Test Item Value Reference Range Interpretation Comments CHOLESTEROL (test code = 2210) 196 MG/DL TRIGLYCERIDES (test code = 2232) 500 MG/DL HDL CHOLESTEROL (test code = 31 MG/DL 2220) CALC LDL CHOL (test code = 2237) (NOTE) MG/DL RISK RATIO LDL/HDL (test code = (NOTE) RATIO 2238) HEMOGLOBIN [id number] 00:00:00 Test Item Value Reference Range Interpretation Comments HEMOGLOBIN A1c (test code = 41095) 11.0 % HEMOGLOBIN [id number] 00:00:00 Test Item Value Reference Range Interpretation Comments HEMOGLOBIN A1c (test code = 01881) 11.0 % HEMOGLOBIN [id number] 00:00:00 Test Item Value Reference Range Interpretation Comments HEMOGLOBIN A1c (test code = 60851) 11.0 % COMPREHENSIVE METABOLIC [id number] 00:00:00 Test Item Value Reference Range Interpretation Comments GLUCOSE (test code = 2217) 259 MG/DL BUN (test code = 2208) 17 MG/DL CREATININE (test code = 2214) 0.72 MG/DL eGFR (2020 CKD-EPI) (test 106 ML/MIN/1.73 code = 17029) CALC BUN/CREAT (test code = 24 RATIO [...] code = 2219) 38 U/L COMPREHENSIVE METABOLIC [id number] 00:00:00 Test Item Value Reference Range Interpretation Comments GLUCOSE (test code = 2217) 259 MG/DL BUN (test code = 2208) 17 MG/DL CREATININE (test code = 2214) 0.72 MG/DL eGFR (2020 CKD-EPI) (test 106 ML/MIN/1.73 code = 35255) CALC BUN/CREAT (test code = 24 RATIO [...] (test code = 2219) 38 U/L LIPID [id number] 00:00:00 Test Item Value Reference Range Interpretation Comments CHOLESTEROL (test code = 2210) 196 MG/DL TRIGLYCERIDES (test code = 2232) 500 MG/DL HDL CHOLESTEROL (test code = 31 MG/DL 2220) CALC LDL CHOL (test code = 2237) (NOTE) MG/DL RISK RATIO LDL/HDL (test code = (NOTE) RATIO 2238) LIPID [id number] 00:00:00 Test Item Value Reference Range Interpretation Comments CHOLESTEROL (test code = 2210) 196 MG/DL TRIGLYCERIDES (test code = 2232) 500 MG/DL HDL CHOLESTEROL (test code = 31 MG/DL 2220) CALC LDL CHOL (test code = 2237) (NOTE) MG/DL RISK RATIO LDL/HDL (test code = (NOTE) RATIO 2238) HEMOGLOBIN [id number] 00:00:00 Test Item Value Reference Range Interpretation Comments HEMOGLOBIN A1c (test code = 01210) 11.0 % HEMOGLOBIN [id number] 00:00:00 Test Item Value Reference Range Interpretation Comments HEMOGLOBIN A1c (test code = 14185) 11.0 % HEMOGLOBIN [id number] 00:00:00 Test Item Value Reference Range Interpretation Comments HEMOGLOBIN A1c (test code = 02967) 11.0 % COMPREHENSIVE METABOLIC [id number] 00:00:00 Test Item Value Reference Range Interpretation Comments GLUCOSE (test code = 2217) 259 MG/DL BUN (test code = 2208) 17 MG/DL CREATININE (test code = 2214) 0.72 MG/DL eGFR (2020 CKD-EPI) (test 106 ML/MIN/1.73 code = 23147) CALC BUN/CREAT (test code = 24 RATIO [...] code = 2219) 38 U/L COMPREHENSIVE METABOLIC [id number] 00:00:00 Test Item Value Reference Range Interpretation Comments GLUCOSE (test code = 2217) 259 MG/DL BUN (test code = 2208) 17 MG/DL CREATININE (test code = 2214) 0.72 MG/DL eGFR (2020 CKD-EPI) (test 106 ML/MIN/1.73 code = 50592) CALC BUN/CREAT (test code = 24 RATIO [...] (test code = 2219) 38 U/L LIPID [id number] 00:00:00 Test Item Value Reference Range Interpretation Comments CHOLESTEROL (test code = 2210) 196 MG/DL TRIGLYCERIDES (test code = 2232) 500 MG/DL HDL CHOLESTEROL (test code = 31 MG/DL 2220) CALC LDL CHOL (test code = 2237) (NOTE) MG/DL RISK RATIO LDL/HDL (test code = (NOTE) RATIO 2238) LIPID [id number] 00:00:00 Test Item Value Reference Range Interpretation Comments CHOLESTEROL (test code = 2210) 196 MG/DL TRIGLYCERIDES (test code = 2232) 500 MG/DL HDL CHOLESTEROL (test code = 31 MG/DL 2220) CALC LDL CHOL (test code = 2237) (NOTE) MG/DL RISK RATIO LDL/HDL (test code = (NOTE) RATIO 2238) HEMOGLOBIN [id number] 00:00:00 Test Item Value Reference Range Interpretation Comments HEMOGLOBIN A1c (test code = 44441) 11.0 % HEMOGLOBIN [id number] 00:00:00 Test Item Value Reference Range Interpretation Comments HEMOGLOBIN A1c (test code = 18508) 11.0 % HEMOGLOBIN [id number] 00:00:00 Test Item Value Reference Range Interpretation Comments HEMOGLOBIN A1c (test code = 28912) 11.0 % VAGINAL PATHOGENS DNA [id number] 15:33:03 Test Item Value Reference Range Interpretation Comments ANDIE SPECIES (test NEGATIVE NEGATIVE code = 42847) G. VAGINALIS (test NEGATIVE NEGATIVE code = 75444) T. VAGINALIS (test NEGATIVE NEGATIVE UNLESS O THERWISE code = 04045) INDICATED, ALL TESTING PERFORMED [facility] [address] [place] [address] 4 LABORATORY DIRE CTOR: NOAH TODD M.D. CLIA NUMBER [id number] [place] [id number] VAGINAL PATHOGENS DNA [id number] 00:00:00 Test Item Value Reference Range Interpretation Comments ANDIE SPECIES (test code = 30444) NEGATIVE G. VAGINALIS (test code = 75483) NEGATIVE T. VAGINALIS (test code = 73496) NEGATIVE VAGINAL PATHOGENS DNA [id number] 00:00:00 Test Item Value Reference Range Interpretation Comments ANDIE SPECIES (test code = 93770) NEGATIVE G. VAGINALIS (test code = 65007) NEGATIVE T. VAGINALIS (test code = 98377) NEGATIVE VAGINAL PATHOGENS DNA [id number] 00:00:00 Test Item Value Reference Range Interpretation Comments ANDIE SPECIES (test code = 58311) NEGATIVE G. VAGINALIS (test code = 46531) NEGATIVE T. VAGINALIS (test code = 84006) NEGATIVE VAGINAL PATHOGENS DNA [id number] 00:00:00 Test Item Value Reference Range Interpretation Comments ANDIE SPECIES (test code = 37723) NEGATIVE G. VAGINALIS (test code = 35055) NEGATIVE T. VAGINALIS (test code = 76672) NEGATIVE VAGINAL PATHOGENS DNA [id number] 00:00:00 Test Item Value Reference Range Interpretation Comments ANDIE SPECIES (test code = 60357) NEGATIVE G. VAGINALIS (test code = 32885) NEGATIVE T. VAGINALIS (test code = 28005) NEGATIVE VAGINAL PATHOGENS DNA [id number] 00:00:00 Test Item Value Reference Range Interpretation Comments ANDIE SPECIES (test code = 86646) NEGATIVE G. VAGINALIS (test code = 62863) NEGATIVE T. VAGINALIS (test code = 34247) NEGATIVE VAGINAL PATHOGENS DNA [id number] 00:00:00 Test Item Value Reference Range Interpretation Comments ANDIE SPECIES (test code = 15124) NEGATIVE G. VAGINALIS (test code = 61864) NEGATIVE T. VAGINALIS (test code = 71940) NEGATIVE VAGINAL PATHOGENS DNA [id number] 00:00:00 Test Item Value Reference Range Interpretation Comments ANDIE SPECIES (test code = 28623) NEGATIVE G. VAGINALIS (test code = 32505) NEGATIVE T. VAGINALIS (test code = 58991) NEGATIVE VAGINAL PATHOGENS DNA [id number] 00:00:00 Test Item Value Reference Range Interpretation Comments ANDIE SPECIES (test code = ) NEGATIVE G. VAGINALIS (test code = 61651) NEGATIVE T. VAGINALIS (test code = 85204) NEGATIVE VAGINAL PATHOGENS DNA [id number] 00:00:00 Test Item Value Reference Range Interpretation Comments ANDIE SPECIES (test code = ) NEGATIVE G. VAGINALIS (test code = 41570) NEGATIVE T. VAGINALIS (test code = 92079) NEGATIVE CULTURE, [id number] 14:55:44SPECIMEN NUMBER: [id number] CULTURE, URINE SPECIMEN NUMBER: [id number] SPECIMEN COMMENT: URINE SOURCE:URINE REPORT STATUS: FINAL FINAL REPORT: 04/11/2022 <10,000 CFU/ML UROGENITAL NORMA PRESENT NO COM MON PATHOGENSCULTURE, [id number] 00:00:00 Test Item Value Reference Range Interpretation Comments CULTURE, URINE (test SPECIMEN NUMBER: code = 29882) [id number] CULTURE, [id number] 00:00:00 Test Item Value Reference Range Interpretation Comments CULTURE, URINE (test SPECIMEN NUMBER: code = 07858) [id number] CULTURE, [id number] 00:00:00 Test Item Value Reference Range Interpretation Comments CULTURE, URINE (test SPECIMEN NUMBER: code = 22275) [id number] CULTURE, [id number] 00:00:00 Test Item Value Reference Range Interpretation Comments CULTURE, URINE (test SPECIMEN NUMBER: code = 73679) [id number] CULTURE, [id number] 00:00:00 Test Item Value Reference Range Interpretation Comments CULTURE, URINE (test SPECIMEN NUMBER: code = 03343) [id number] CULTURE, [id number] 00:00:00 Test Item Value Reference Range Interpretation Comments CULTURE, URINE (test SPECIMEN NUMBER: code = 43470) [id number] CULTURE, [id number] 00:00:00 Test Item Value Reference Range Interpretation Comments CULTURE, URINE (test SPECIMEN NUMBER: code = 65538) [id number] CULTURE, [id number] 00:00:00 Test Item Value Reference Range Interpretation Comments CULTURE, URINE (test SPECIMEN NUMBER: code = 90859) [id number] CULTURE, [id number] 00:00:00 Test Item Value Reference Range Interpretation Comments CULTURE, URINE (test SPECIMEN NUMBER: code = 14993) [id number] CULTURE, [id number] 00:00:00 Test Item Value Reference Range Interpretation Comments CULTURE, URINE (test SPECIMEN NUMBER: code = 58400) [id number] CULTURE, [id number] 00:00:00 Test Item Value Reference Range Interpretation Comments CULTURE, URINE (test SPECIMEN NUMBER: code = 62338) [id number] CULTURE, [id number] 00:00:00 Test Item Value Reference Range Interpretation Comments CULTURE, URINE (test SPECIMEN NUMBER: code = 14544) [id number] CULTURE, [id number] 00:00:00 Test Item Value Reference Range Interpretation Comments CULTURE, URINE (test SPECIMEN NUMBER: code = 12194) [id number] CULTURE, [id number] 00:00:00 Test Item Value Reference Range Interpretation Comments CULTURE, URINE (test SPECIMEN NUMBER: code = 80987) [id number] CBC W/AUTO DIFF WITH [id number] 02:13:01 Test Item Value Reference Range Interpretation [...] message] code = 1065) WBC'S The system [employer] generated this result transmitted ref erence range: [...] 0.00-0.11 UNLESS O THERWISE (test code = 89920) INDICATE D, ALL TESTING PERFORM ED [facility], [place] [place] [address] [facility] DIRECTOR: NOAH DICKENS M.D. CLIA NUMBER [id number] CAP ACCREDITATION N O. [id number] CBC W/AUTO [id number] 00:00:00 Test Item Value Reference Range Interpretation [...] NUCLEATED RBCS (test code = 0.00 K/UL 24716) CBC W/AUTO [id number] 00:00:00 Test Item Value Reference Range Interpretation [...] NUCLEATED RBCS (test code = 0.00 K/UL 09410) CBC W/AUTO [id number] 00:00:00 Test Item Value Reference Range Interpretation [...] NUCLEATED RBCS (test code = 0.00 K/UL 39908) CBC W/AUTO [id number] 00:00:00 Test Item Value Reference Range Interpretation [...] NUCLEATED RBCS (test code = 0.00 K/UL 92418) CBC W/AUTO [id number] 00:00:00 Test Item Value Reference Range Interpretation [...] NUCLEATED RBCS (test code = 0.00 K/UL 91257) CBC W/AUTO [id number] 00:00:00 Test Item Value Reference Range Interpretation [...] NUCLEATED RBCS (test code = 0.00 K/UL 37794) CBC W/AUTO [id number] 00:00:00 Test Item Value Reference Range Interpretation [...] NUCLEATED RBCS (test code = 0.00 K/UL 98903) CBC W/AUTO [id number] 00:00:00 Test Item Value Reference Range Interpretation [...] NUCLEATED RBCS (test code = 0.00 K/UL 82613) CBC W/AUTO [id number] 00:00:00 Test Item Value Reference Range Interpretation [...] NUCLEATED RBCS (test code = 0.00 K/UL 41651) CBC W/AUTO [id number] 00:00:00 Test Item Value Reference Range Interpretation [...] NUCLEATED RBCS (test code = 0.00 K/UL 90897) CBC W/AUTO [id number] 00:00:00 Test Item Value Reference Range Interpretation [...] NUCLEATED RBCS (test code = 0.00 K/UL 02876) CBC W/AUTO [id number] 00:00:00 Test Item Value Reference Range Interpretation [...] NUCLEATED RBCS (test code = 0.00 K/UL 18039) CBC W/AUTO [id number] 00:00:00 Test Item Value Reference Range Interpretation [...] NUCLEATED RBCS (test code = 0.00 K/UL 38237) CBC W/AUTO [id number] 00:00:00 Test Item Value Reference Range Interpretation [...] NUCLEATED RBCS (test code = 0.00 K/UL 66145) CBC W/AUTO [id number] 00:00:00 Test Item Value Reference Range Interpretation [...] NUCLEATED RBCS (test code = 0.00 K/UL 29519) CBC W/AUTO [id number] 00:00:00 Test Item Value Reference Range Interpretation [...] NUCLEATED RBCS (test code = 0.00 K/UL 34110) CBC W/AUTO [id number] 00:00:00 Test Item Value Reference Range Interpretation [...] NUCLEATED RBCS (test code = 0.00 K/UL 74438) CBC W/AUTO [id number] 00:00:00 Test Item Value Reference Range Interpretation [...] NUCLEATED RBCS (test code = 0.00 K/UL 46180) CBC W/AUTO [id number] 00:00:00 Test Item Value Reference Range Interpretation [...] NUCLEATED RBCS (test code = 0.00 K/UL 32773) CBC W/AUTO [id number] 00:00:00 Test Item Value Reference Range Interpretation [...] NUCLEATED RBCS (test code = 0.00 K/UL 10527) CBC W/AUTO [id number] 00:00:00 Test Item Value Reference Range Interpretation [...] NUCLEATED RBCS (test code = 0.00 K/UL 05752) COMPREHENSIVE METABOLIC [id number] 04:26:32 Test Item Value Reference Range Interpretation Comments GLUCOSE (test code = 122 MG/DL 70-99 H 2216) BUN (test code = 11 MG/DL 6-20 2207) CREATININE (test 0.65 MG/DL 0.60-1.30 code = 2214) eGFR (2020 CKD-EPI) 111 >60 (test code = 40712) ML/MIN/1.73 CALC BUN/CREAT (test 17 RATIO 6-28 code = 2235) SODIUM (test code = 145 MEQ/L 707-458 1384) POTASSIUM (test code 4.2 MEQ/L 3.5-5.4 = [...] code = 38 U/L 5-40 2218) LIPID [id number] 04:26:32 Test Item Value Reference Range Interpretation [...] MOREINFORMATION , SEE CLIENT ANNOUNCE MENT AT [email or web address] RISK RATIO LDL/HDL 2.84 RATIO <3.22 (test code = 2238) HEMOGLOBIN [id number] 04:03:31 Test Item Value Reference Range Interpretation Comments HEMOGLOBIN A1c (test 10.9 % 4.2-5.6 H [employer] AN DIABETES code = 15354) ASSOCIATION [employer] FOR HGB A1C: PREDIABETES/INC REASED [...] TESTING PER FORMED ATCL[facility]ICAL PATH [facility]LOGY LAB[facility]ATORIES, [facility]. [address] [place] [address] LABORATORY DIRE CTOR: Carlos Enrique BERNARD. SHUBHAM NUMBER [id number] CAP ACCREDITATION N O. [id number] COMPREHENSIVE METABOLIC [id number] 00:00:00 Test Item Value Reference Range Interpretation Comments GLUCOSE (test code = 2217) 122 MG/DL BUN (test code = 2208) 11 MG/DL CREATININE (test code = 2214) 0.65 MG/DL eGFR (2020 CKD-EPI) (test 111 ML/MIN/1.73 code = 75776) CALC BUN/CREAT (test code = 17 RATIO [...] code = 2219) 38 U/L COMPREHENSIVE METABOLIC [id number] 00:00:00 Test Item Value Reference Range Interpretation Comments GLUCOSE (test code = 2217) 122 MG/DL BUN (test code = 2208) 11 MG/DL CREATININE (test code = 2214) 0.65 MG/DL eGFR (2020 CKD-EPI) (test 111 ML/MIN/1.73 code = 22285) CALC BUN/CREAT (test code = 17 RATIO [...] (test code = 2219) 38 U/L LIPID [id number] 00:00:00 Test Item Value Reference Range Interpretation Comments CHOLESTEROL (test code = 2210) 169 MG/DL TRIGLYCERIDES (test code = 2232) 346 MG/DL HDL CHOLESTEROL (test code = 2220) 32 MG/DL CALC LDL CHOL (test code = 2237) 91 MG/DL RISK RATIO LDL/HDL (test code = 2.84 RATIO 2238) LIPID [id number] 00:00:00 Test Item Value Reference Range Interpretation Comments CHOLESTEROL (test code = 2210) 169 MG/DL TRIGLYCERIDES (test code = 2232) 346 MG/DL HDL CHOLESTEROL (test code = 2220) 32 MG/DL CALC LDL CHOL (test code = 2237) 91 MG/DL RISK RATIO LDL/HDL (test code = 2.84 RATIO 8) HEMOGLOBIN [id number] 00:00:00 Test Item Value Reference Range Interpretation Comments HEMOGLOBIN A1c (test code = 30287) 10.9 % HEMOGLOBIN [id number] 00:00:00 Test Item Value Reference Range Interpretation Comments HEMOGLOBIN A1c (test code = 34906) 10.9 % HEMOGLOBIN [id number] 00:00:00 Test Item Value Reference Range Interpretation Comments HEMOGLOBIN A1c (test code = 74059) 10.9 % COMPREHENSIVE METABOLIC [id number] 00:00:00 Test Item Value Reference Range Interpretation Comments GLUCOSE (test code = 2217) 122 MG/DL BUN (test code = 2208) 11 MG/DL CREATININE (test code = 2214) 0.65 MG/DL eGFR (2020 CKD-EPI) (test 111 ML/MIN/1.73 code = 14707) CALC BUN/CREAT (test code = 17 RATIO [...] code = 2219) 38 U/L COMPREHENSIVE METABOLIC [id number] 00:00:00 Test Item Value Reference Range Interpretation Comments GLUCOSE (test code = 2217) 122 MG/DL BUN (test code = 2208) 11 MG/DL CREATININE (test code = 2214) 0.65 MG/DL eGFR (2020 CKD-EPI) (test 111 ML/MIN/1.73 code = 87028) CALC BUN/CREAT (test code = 17 RATIO [...] (test code = 2219) 38 U/L LIPID [id number] 00:00:00 Test Item Value Reference Range Interpretation Comments CHOLESTEROL (test code = 2210) 169 MG/DL TRIGLYCERIDES (test code = 2232) 346 MG/DL HDL CHOLESTEROL (test code = 2220) 32 MG/DL CALC LDL CHOL (test code = 2237) 91 MG/DL RISK RATIO LDL/HDL (test code = 2.84 RATIO 2238) LIPID [id number] 00:00:00 Test Item Value Reference Range Interpretation Comments CHOLESTEROL (test code = 2210) 169 MG/DL TRIGLYCERIDES (test code = 2232) 346 MG/DL HDL CHOLESTEROL (test code = 2220) 32 MG/DL CALC LDL CHOL (test code = 2237) 91 MG/DL RISK RATIO LDL/HDL (test code = 2.84 RATIO 2238) HEMOGLOBIN [id number] 00:00:00 Test Item Value Reference Range Interpretation Comments HEMOGLOBIN A1c (test code = 48795) 10.9 % HEMOGLOBIN [id number] 00:00:00 Test Item Value Reference Range Interpretation Comments HEMOGLOBIN A1c (test code = 25789) 10.9 % HEMOGLOBIN [id number] 00:00:00 Test Item Value Reference Range Interpretation Comments HEMOGLOBIN A1c (test code = 81156) 10.9 % COMPREHENSIVE METABOLIC [id number] 00:00:00 Test Item Value Reference Range Interpretation Comments GLUCOSE (test code = 2217) 122 MG/DL BUN (test code = 2208) 11 MG/DL CREATININE (test code = 2214) 0.65 MG/DL eGFR (2020 CKD-EPI) (test 111 ML/MIN/1.73 code = 62854) CALC BUN/CREAT (test code = 17 RATIO [...] code = 2219) 38 U/L COMPREHENSIVE METABOLIC [id number] 00:00:00 Test Item Value Reference Range Interpretation Comments GLUCOSE (test code = 2217) 122 MG/DL BUN (test code = 2208) 11 MG/DL CREATININE (test code = 2214) 0.65 MG/DL eGFR (2020 CKD-EPI) (test 111 ML/MIN/1.73 code = 18412) CALC BUN/CREAT (test code = 17 RATIO [...] (test code = 2219) 38 U/L LIPID [id number] 00:00:00 Test Item Value Reference Range Interpretation Comments CHOLESTEROL (test code = 2210) 169 MG/DL TRIGLYCERIDES (test code = 2232) 346 MG/DL HDL CHOLESTEROL (test code = 2220) 32 MG/DL CALC LDL CHOL (test code = 2237) 91 MG/DL RISK RATIO LDL/HDL (test code = 2.84 RATIO 2238) LIPID [id number] 00:00:00 Test Item Value Reference Range Interpretation Comments CHOLESTEROL (test code = 2210) 169 MG/DL TRIGLYCERIDES (test code = 2232) 346 MG/DL HDL CHOLESTEROL (test code = 2220) 32 MG/DL CALC LDL CHOL (test code = 2237) 91 MG/DL RISK RATIO LDL/HDL (test code = 2.84 RATIO 2238) HEMOGLOBIN [id number] 00:00:00 Test Item Value Reference Range Interpretation Comments HEMOGLOBIN A1c (test code = 95449) 10.9 % HEMOGLOBIN [id number] 00:00:00 Test Item Value Reference Range Interpretation Comments HEMOGLOBIN A1c (test code = 20540) 10.9 % HEMOGLOBIN [id number] 00:00:00 Test Item Value Reference Range Interpretation Comments HEMOGLOBIN A1c (test code = 13885) 10.9 % COMPREHENSIVE METABOLIC [id number] 00:00:00 Test Item Value Reference Range Interpretation Comments GLUCOSE (test code = 2217) 122 MG/DL BUN (test code = 2208) 11 MG/DL CREATININE (test code = 2214) 0.65 MG/DL eGFR (2020 CKD-EPI) (test 111 ML/MIN/1.73 code = 15020) CALC BUN/CREAT (test code = 17 RATIO [...] code = 2219) 38 U/L COMPREHENSIVE METABOLIC [id number] 00:00:00 Test Item Value Reference Range Interpretation Comments GLUCOSE (test code = 2217) 122 MG/DL BUN (test code = 2208) 11 MG/DL CREATININE (test code = 2214) 0.65 MG/DL eGFR (2020 CKD-EPI) (test 111 ML/MIN/1.73 code = 74476) CALC BUN/CREAT (test code = 17 RATIO [...] (test code = 2219) 38 U/L LIPID [id number] 00:00:00 Test Item Value Reference Range Interpretation Comments CHOLESTEROL (test code = 2210) 169 MG/DL TRIGLYCERIDES (test code = 2232) 346 MG/DL HDL CHOLESTEROL (test code = 2220) 32 MG/DL CALC LDL CHOL (test code = 2237) 91 MG/DL RISK RATIO LDL/HDL (test code = 2.84 RATIO 2238) LIPID [id number] 00:00:00 Test Item Value Reference Range Interpretation Comments CHOLESTEROL (test code = 2210) 169 MG/DL TRIGLYCERIDES (test code = 2232) 346 MG/DL HDL CHOLESTEROL (test code = 2220) 32 MG/DL CALC LDL CHOL (test code = 2237) 91 MG/DL RISK RATIO LDL/HDL (test code = 2.84 RATIO 2238) HEMOGLOBIN [id number] 00:00:00 Test Item Value Reference Range Interpretation Comments HEMOGLOBIN A1c (test code = 47779) 10.9 % HEMOGLOBIN [id number] 00:00:00 Test Item Value Reference Range Interpretation Comments HEMOGLOBIN A1c (test code = 21656) 10.9 % HEMOGLOBIN [id number] 00:00:00 Test Item Value Reference Range Interpretation Comments HEMOGLOBIN A1c (test code = 72092) 10.9 % COMPREHENSIVE METABOLIC [id number] 00:00:00 Test Item Value Reference Range Interpretation Comments GLUCOSE (test code = 2217) 122 MG/DL BUN (test code = 2208) 11 MG/DL CREATININE (test code = 2214) 0.65 MG/DL eGFR (2020 CKD-EPI) (test 111 ML/MIN/1.73 code = 89049) CALC BUN/CREAT (test code = 17 RATIO [...] code = 2219) 38 U/L COMPREHENSIVE METABOLIC [id number] 00:00:00 Test Item Value Reference Range Interpretation Comments GLUCOSE (test code = 2217) 122 MG/DL BUN (test code = 2208) 11 MG/DL CREATININE (test code = 2214) 0.65 MG/DL eGFR (2020 CKD-EPI) (test 111 ML/MIN/1.73 code = 32728) CALC BUN/CREAT (test code = 17 RATIO [...] (test code = 2219) 38 U/L LIPID [id number] 00:00:00 Test Item Value Reference Range Interpretation Comments CHOLESTEROL (test code = 2210) 169 MG/DL TRIGLYCERIDES (test code = 2232) 346 MG/DL HDL CHOLESTEROL (test code = 2220) 32 MG/DL CALC LDL CHOL (test code = 2237) 91 MG/DL RISK RATIO LDL/HDL (test code = 2.84 RATIO 2238) LIPID [id number] 00:00:00 Test Item Value Reference Range Interpretation Comments CHOLESTEROL (test code = 2210) 169 MG/DL TRIGLYCERIDES (test code = 2232) 346 MG/DL HDL CHOLESTEROL (test code = 2220) 32 MG/DL CALC LDL CHOL (test code = 2237) 91 MG/DL RISK RATIO LDL/HDL (test code = 2.84 RATIO 2238) HEMOGLOBIN [id number] 00:00:00 Test Item Value Reference Range Interpretation Comments HEMOGLOBIN A1c (test code = 59918) 10.9 % HEMOGLOBIN [id number] 00:00:00 Test Item Value Reference Range Interpretation Comments HEMOGLOBIN A1c (test code = 22593) 10.9 % HEMOGLOBIN [id number] 00:00:00 Test Item Value Reference Range Interpretation Comments HEMOGLOBIN A1c (test code = 87333) 10.9 % COMPREHENSIVE METABOLIC [id number] 00:00:00 Test Item Value Reference Range Interpretation Comments GLUCOSE (test code = 2217) 122 MG/DL BUN (test code = 2208) 11 MG/DL CREATININE (test code = 2214) 0.65 MG/DL eGFR (2020 CKD-EPI) (test 111 ML/MIN/1.73 code = 03069) CALC BUN/CREAT (test code = 17 RATIO [...] code = 2219) 38 U/L COMPREHENSIVE METABOLIC [id number] 00:00:00 Test Item Value Reference Range Interpretation Comments GLUCOSE (test code = 2217) 122 MG/DL BUN (test code = 2208) 11 MG/DL CREATININE (test code = 2214) 0.65 MG/DL eGFR (2020 CKD-EPI) (test 111 ML/MIN/1.73 code = 53550) CALC BUN/CREAT (test code = 17 RATIO [...] (test code = 2219) 38 U/L LIPID [id number] 00:00:00 Test Item Value Reference Range Interpretation Comments CHOLESTEROL (test code = 2210) 169 MG/DL TRIGLYCERIDES (test code = 2232) 346 MG/DL HDL CHOLESTEROL (test code = 2220) 32 MG/DL CALC LDL CHOL (test code = 2237) 91 MG/DL RISK RATIO LDL/HDL (test code = 2.84 RATIO 2238) LIPID [id number] 00:00:00 Test Item Value Reference Range Interpretation Comments CHOLESTEROL (test code = 2210) 169 MG/DL TRIGLYCERIDES (test code = 2232) 346 MG/DL HDL CHOLESTEROL (test code = 2220) 32 MG/DL CALC LDL CHOL (test code = 2237) 91 MG/DL RISK RATIO LDL/HDL (test code = 2.84 RATIO 2238) HEMOGLOBIN [id number] 00:00:00 Test Item Value Reference Range Interpretation Comments HEMOGLOBIN A1c (test code = 19109) 10.9 % HEMOGLOBIN [id number] 00:00:00 Test Item Value Reference Range Interpretation Comments HEMOGLOBIN A1c (test code = 52039) 10.9 % HEMOGLOBIN [id number] 00:00:00 Test Item Value Reference Range Interpretation Comments HEMOGLOBIN A1c (test code = 92792) 10.9 % COMPREHENSIVE METABOLIC [id number] 00:00:00 Test Item Value Reference Range Interpretation Comments GLUCOSE (test code = 2217) 122 MG/DL BUN (test code = 2208) 11 MG/DL CREATININE (test code = 2214) 0.65 MG/DL eGFR (2020 CKD-EPI) (test 111 ML/MIN/1.73 code = 54726) CALC BUN/CREAT (test code = 17 RATIO [...] code = 2219) 38 U/L COMPREHENSIVE METABOLIC [id number] 00:00:00 Test Item Value Reference Range Interpretation Comments GLUCOSE (test code = 2217) 122 MG/DL BUN (test code = 2208) 11 MG/DL CREATININE (test code = 2214) 0.65 MG/DL eGFR (2020 CKD-EPI) (test 111 ML/MIN/1.73 code = 42914) CALC BUN/CREAT (test code = 17 RATIO [...] (test code = 2219) 38 U/L LIPID [id number] 00:00:00 Test Item Value Reference Range Interpretation Comments CHOLESTEROL (test code = 2210) 169 MG/DL TRIGLYCERIDES (test code = 2232) 346 MG/DL HDL CHOLESTEROL (test code = 2220) 32 MG/DL CALC LDL CHOL (test code = 2237) 91 MG/DL RISK RATIO LDL/HDL (test code = 2.84 RATIO 2238) LIPID [id number] 00:00:00 Test Item Value Reference Range Interpretation Comments CHOLESTEROL (test code = 2210) 169 MG/DL TRIGLYCERIDES (test code = 2232) 346 MG/DL HDL CHOLESTEROL (test code = 2220) 32 MG/DL CALC LDL CHOL (test code = 2237) 91 MG/DL RISK RATIO LDL/HDL (test code = 2.84 RATIO 2238) HEMOGLOBIN [id number] 00:00:00 Test Item Value Reference Range Interpretation Comments HEMOGLOBIN A1c (test code = 02008) 10.9 % HEMOGLOBIN [id number] 00:00:00 Test Item Value Reference Range Interpretation Comments HEMOGLOBIN A1c (test code = 07771) 10.9 % HEMOGLOBIN [id number] 00:00:00 Test Item Value Reference Range Interpretation Comments HEMOGLOBIN A1c (test code = 28174) 10.9 % COMPREHENSIVE METABOLIC [id number] 00:00:00 Test Item Value Reference Range Interpretation Comments GLUCOSE (test code = 2217) 122 MG/DL BUN (test code = 2208) 11 MG/DL CREATININE (test code = 2214) 0.65 MG/DL eGFR (2020 CKD-EPI) (test 111 ML/MIN/1.73 code = 19452) CALC BUN/CREAT (test code = 17 RATIO [...] code = 2219) 38 U/L COMPREHENSIVE METABOLIC [id number] 00:00:00 Test Item Value Reference Range Interpretation Comments GLUCOSE (test code = 2217) 122 MG/DL BUN (test code = 2208) 11 MG/DL CREATININE (test code = 2214) 0.65 MG/DL eGFR (2020 CKD-EPI) (test 111 ML/MIN/1.73 code = 48697) CALC BUN/CREAT (test code = 17 RATIO [...] (test code = 2219) 38 U/L LIPID [id number] 00:00:00 Test Item Value Reference Range Interpretation Comments CHOLESTEROL (test code = 2210) 169 MG/DL TRIGLYCERIDES (test code = 2232) 346 MG/DL HDL CHOLESTEROL (test code = 2220) 32 MG/DL CALC LDL CHOL (test code = 2237) 91 MG/DL RISK RATIO LDL/HDL (test code = 2.84 RATIO 2238) LIPID [id number] 00:00:00 Test Item Value Reference Range Interpretation Comments CHOLESTEROL (test code = 2210) 169 MG/DL TRIGLYCERIDES (test code = 2232) 346 MG/DL HDL CHOLESTEROL (test code = 2220) 32 MG/DL CALC LDL CHOL (test code = 2237) 91 MG/DL RISK RATIO LDL/HDL (test code = 2.84 RATIO 2238) HEMOGLOBIN [id number] 00:00:00 Test Item Value Reference Range Interpretation Comments HEMOGLOBIN A1c (test code = 41825) 10.9 % HEMOGLOBIN [id number] 00:00:00 Test Item Value Reference Range Interpretation Comments HEMOGLOBIN A1c (test code = 69473) 10.9 % HEMOGLOBIN [id number] 00:00:00 Test Item Value Reference Range Interpretation Comments HEMOGLOBIN A1c (test code = 40800) 10.9 % COMPREHENSIVE METABOLIC [id number] 00:00:00 Test Item Value Reference Range Interpretation Comments GLUCOSE (test code = 2217) 122 MG/DL BUN (test code = 2208) 11 MG/DL CREATININE (test code = 2214) 0.65 MG/DL eGFR (2020 CKD-EPI) (test 111 ML/MIN/1.73 code = 54914) CALC BUN/CREAT (test code = 17 RATIO [...] code = 2219) 38 U/L COMPREHENSIVE METABOLIC [id number] 00:00:00 Test Item Value Reference Range Interpretation Comments GLUCOSE (test code = 2217) 122 MG/DL BUN (test code = 2208) 11 MG/DL CREATININE (test code = 2214) 0.65 MG/DL eGFR (2020 CKD-EPI) (test 111 ML/MIN/1.73 code = 94415) CALC BUN/CREAT (test code = 17 RATIO [...] (test code = 2219) 38 U/L LIPID [id number] 00:00:00 Test Item Value Reference Range Interpretation Comments CHOLESTEROL (test code = 2210) 169 MG/DL TRIGLYCERIDES (test code = 2232) 346 MG/DL HDL CHOLESTEROL (test code = 2220) 32 MG/DL CALC LDL CHOL (test code = 2237) 91 MG/DL RISK RATIO LDL/HDL (test code = 2.84 RATIO 2238) LIPID [id number] 00:00:00 Test Item Value Reference Range Interpretation Comments CHOLESTEROL (test code = 2210) 169 MG/DL TRIGLYCERIDES (test code = 2232) 346 MG/DL HDL CHOLESTEROL (test code = 2220) 32 MG/DL CALC LDL CHOL (test code = 2237) 91 MG/DL RISK RATIO LDL/HDL (test code = 2.84 RATIO 2238) HEMOGLOBIN [id number] 00:00:00 Test Item Value Reference Range Interpretation Comments HEMOGLOBIN A1c (test code = 36127) 10.9 % HEMOGLOBIN [id number] 00:00:00 Test Item Value Reference Range Interpretation Comments HEMOGLOBIN A1c (test code = 24543) 10.9 % HEMOGLOBIN [id number] 00:00:00 Test Item Value Reference Range Interpretation Comments HEMOGLOBIN A1c (test code = 45807) 10.9 % VITAMIN D, 25 [id number] 04:13:44 Test Item Value Reference Range Interpretation [...] [facility] [place] [address] [place] [id number] LABORATORY DIRE CTOR: Carlos Enrique BERNARD. CLIA NUMBER [id number] CAP ACCREDITATION N O. [id number] HIV 1/2 4TH GEN, RFLX [id number] 03:26:41 Test Item Value Reference Range Interpretation Comments HIV 1/2 4TH GEN, RFLX CONF (test NON-REACTIVE NON-REACTIVE code = 3514) ALBUMIN, URINE, [id number] 02:46:02 Test Item Value Reference Range Interpretation Comments ALBUMIN, URINE, RANDOM (test code 10.2 MG/DL NOT ESTAB = 63668) MICROALBUMIN, [id number] 00:00:00 Test Item Value Reference Range Interpretation Comments ALBUMIN, URINE, RANDOM (test code 10.2 MG/DL = 24384) MICROALBUMIN, [id number] 00:00:00 Test Item Value Reference Range Interpretation Comments ALBUMIN, URINE, RANDOM (test code 10.2 MG/DL = 65734) HIV AB/AG COMBO RFLX [id number] 00:00:00 Test Item Value Reference Range Interpretation Comments HIV 1/2 4TH GEN, RFLX CONF (test NON-REACTIVE code = 3514) HIV AB/AG COMBO RFLX [id number] 00:00:00 Test Item Value Reference Range Interpretation Comments HIV 1/2 4TH GEN, RFLX CONF (test NON-REACTIVE code = 3514) VITAMIN D, 25 [id number] 00:00:00 Test Item Value Reference Range Interpretation Comments VITAMIN D, 25 OH (test code = 4958) 18 NG/ML VITAMIN D, 25 [id number] 00:00:00 Test Item Value Reference Range Interpretation Comments VITAMIN D, 25 OH (test code = 4958) 18 NG/ML MICROALBUMIN, [id number] 00:00:00 Test Item Value Reference Range Interpretation Comments ALBUMIN, URINE, RANDOM (test code 10.2 MG/DL = 35478) MICROALBUMIN, [id number] 00:00:00 Test Item Value Reference Range Interpretation Comments ALBUMIN, URINE, RANDOM (test code 10.2 MG/DL = 62202) HIV AB/AG COMBO RFLX [id number] 00:00:00 Test Item Value Reference Range Interpretation Comments HIV 1/2 4TH GEN, RFLX CONF (test NON-REACTIVE code = 3514) HIV AB/AG COMBO RFLX [id number] 00:00:00 Test Item Value Reference Range Interpretation Comments HIV 1/2 4TH GEN, RFLX CONF (test NON-REACTIVE code = 3514) VITAMIN D, 25 [id number] 00:00:00 Test Item Value Reference Range Interpretation Comments VITAMIN D, 25 OH (test code = 4958) 18 NG/ML VITAMIN D, 25 [id number] 00:00:00 Test Item Value Reference Range Interpretation Comments VITAMIN D, 25 OH (test code = 4958) 18 NG/ML MICROALBUMIN, [id number] 00:00:00 Test Item Value Reference Range Interpretation Comments ALBUMIN, URINE, RANDOM (test code 10.2 MG/DL = 18122) MICROALBUMIN, [id number] 00:00:00 Test Item Value Reference Range Interpretation Comments ALBUMIN, URINE, RANDOM (test code 10.2 MG/DL = 48410) HIV AB/AG COMBO RFLX [id number] 00:00:00 Test Item Value Reference Range Interpretation Comments HIV 1/2 4TH GEN, RFLX CONF (test NON-REACTIVE code = 3514) HIV AB/AG COMBO RFLX [id number] 00:00:00 Test Item Value Reference Range Interpretation Comments HIV 1/2 4TH GEN, RFLX CONF (test NON-REACTIVE code = 3514) VITAMIN D, 25 [id number] 00:00:00 Test Item Value Reference Range Interpretation Comments VITAMIN D, 25 OH (test code = 4958) 18 NG/ML VITAMIN D, 25 [id number] 00:00:00 Test Item Value Reference Range Interpretation Comments VITAMIN D, 25 OH (test code = 4958) 18 NG/ML MICROALBUMIN, [id number] 00:00:00 Test Item Value Reference Range Interpretation Comments ALBUMIN, URINE, RANDOM (test code 10.2 MG/DL = 28629) MICROALBUMIN, [id number] 00:00:00 Test Item Value Reference Range Interpretation Comments ALBUMIN, URINE, RANDOM (test code 10.2 MG/DL = 49903) HIV AB/AG COMBO RFLX [id number] 00:00:00 Test Item Value Reference Range Interpretation Comments HIV 1/2 4TH GEN, RFLX CONF (test NON-REACTIVE code = 3514) HIV AB/AG COMBO RFLX [id number] 00:00:00 Test Item Value Reference Range Interpretation Comments HIV 1/2 4TH GEN, RFLX CONF (test NON-REACTIVE code = 3514) VITAMIN D, 25 [id number] 00:00:00 Test Item Value Reference Range Interpretation Comments VITAMIN D, 25 OH (test code = 4958) 18 NG/ML VITAMIN D, 25 [id number] 00:00:00 Test Item Value Reference Range Interpretation Comments VITAMIN D, 25 OH (test code = 4958) 18 NG/ML MICROALBUMIN, [id number] 00:00:00 Test Item Value Reference Range Interpretation Comments ALBUMIN, URINE, RANDOM (test code 10.2 MG/DL = 29068) MICROALBUMIN, [id number] 00:00:00 Test Item Value Reference Range Interpretation Comments ALBUMIN, URINE, RANDOM (test code 10.2 MG/DL = 59858) HIV AB/AG COMBO RFLX [id number] 00:00:00 Test Item Value Reference Range Interpretation Comments HIV 1/2 4TH GEN, RFLX CONF (test NON-REACTIVE code = 3514) HIV AB/AG COMBO RFLX [id number] 00:00:00 Test Item Value Reference Range Interpretation Comments HIV 1/2 4TH GEN, RFLX CONF (test NON-REACTIVE code = 3514) VITAMIN D, 25 [id number] 00:00:00 Test Item Value Reference Range Interpretation Comments VITAMIN D, 25 OH (test code = 4958) 18 NG/ML VITAMIN D, 25 [id number] 00:00:00 Test Item Value Reference Range Interpretation Comments VITAMIN D, 25 OH (test code = 4958) 18 NG/ML MICROALBUMIN, [id number] 00:00:00 Test Item Value Reference Range Interpretation Comments ALBUMIN, URINE, RANDOM (test code 10.2 MG/DL = 51650) MICROALBUMIN, [id number] 00:00:00 Test Item Value Reference Range Interpretation Comments ALBUMIN, URINE, RANDOM (test code 10.2 MG/DL = 55470) HIV AB/AG COMBO RFLX [id number] 00:00:00 Test Item Value Reference Range Interpretation Comments HIV 1/2 4TH GEN, RFLX CONF (test NON-REACTIVE code = 3514) HIV AB/AG COMBO RFLX [id number] 00:00:00 Test Item Value Reference Range Interpretation Comments HIV 1/2 4TH GEN, RFLX CONF (test NON-REACTIVE code = 3514) VITAMIN D, 25 [id number] 00:00:00 Test Item Value Reference Range Interpretation Comments VITAMIN D, 25 OH (test code = 4958) 18 NG/ML VITAMIN D, 25 [id number] 00:00:00 Test Item Value Reference Range Interpretation Comments VITAMIN D, 25 OH (test code = 4958) 18 NG/ML MICROALBUMIN, [id number] 00:00:00 Test Item Value Reference Range Interpretation Comments ALBUMIN, URINE, RANDOM (test code 10.2 MG/DL = 30615) MICROALBUMIN, [id number] 00:00:00 Test Item Value Reference Range Interpretation Comments ALBUMIN, URINE, RANDOM (test code 10.2 MG/DL = 81965) HIV AB/AG COMBO RFLX [id number] 00:00:00 Test Item Value Reference Range Interpretation Comments HIV 1/2 4TH GEN, RFLX CONF (test NON-REACTIVE code = 3514) HIV AB/AG COMBO RFLX [id number] 00:00:00 Test Item Value Reference Range Interpretation Comments HIV 1/2 4TH GEN, RFLX CONF (test NON-REACTIVE code = 3514) VITAMIN D, 25 [id number] 00:00:00 Test Item Value Reference Range Interpretation Comments VITAMIN D, 25 OH (test code = 4958) 18 NG/ML VITAMIN D, 25 [id number] 00:00:00 Test Item Value Reference Range Interpretation Comments VITAMIN D, 25 OH (test code = 4958) 18 NG/ML MICROALBUMIN, [id number] 00:00:00 Test Item Value Reference Range Interpretation Comments ALBUMIN, URINE, RANDOM (test code 10.2 MG/DL = 19263) HIV AB/AG COMBO RFLX [id number] 00:00:00 Test Item Value Reference Range Interpretation Comments HIV 1/2 4TH GEN, RFLX CONF (test NON-REACTIVE code = 3514) MICROALBUMIN, [id number] 00:00:00 Test Item Value Reference Range Interpretation Comments ALBUMIN, URINE, RANDOM (test code 10.2 MG/DL = 65069) MICROALBUMIN, [id number] 00:00:00 Test Item Value Reference Range Interpretation Comments ALBUMIN, URINE, RANDOM (test code 10.2 MG/DL = 30064) HIV AB/AG COMBO RFLX [id number] 00:00:00 Test Item Value Reference Range Interpretation Comments HIV 1/2 4TH GEN, RFLX CONF (test NON-REACTIVE code = 3514) HIV AB/AG COMBO RFLX [id number] 00:00:00 Test Item Value Reference Range Interpretation Comments HIV 1/2 4TH GEN, RFLX CONF (test NON-REACTIVE code = 3514) VITAMIN D, 25 [id number] 00:00:00 Test Item Value Reference Range Interpretation Comments VITAMIN D, 25 OH (test code = 4958) 18 NG/ML VITAMIN D, 25 [id number] 00:00:00 Test Item Value Reference Range Interpretation Comments VITAMIN D, 25 OH (test code = 4958) 18 NG/ML VITAMIN D, 25 [id number] 00:00:00 Test Item Value Reference Range Interpretation Comments VITAMIN D, 25 OH (test code = 4958) 18 NG/ML MICROALBUMIN, [id number] 00:00:00 Test Item Value Reference Range Interpretation Comments ALBUMIN, URINE, RANDOM (test code 10.2 MG/DL = 99708) MICROALBUMIN, [id number] 00:00:00 Test Item Value Reference Range Interpretation Comments ALBUMIN, URINE, RANDOM (test code 10.2 MG/DL = 97742) HIV AB/AG COMBO RFLX [id number] 00:00:00 Test Item Value Reference Range Interpretation Comments HIV 1/2 4TH GEN, RFLX CONF (test NON-REACTIVE code = 3514) HIV AB/AG COMBO RFLX [id number] 00:00:00 Test Item Value Reference Range Interpretation Comments HIV 1/2 4TH GEN, RFLX CONF (test NON-REACTIVE code = 3514) VITAMIN D, 25 [id number] 00:00:00 Test Item Value Reference Range Interpretation Comments VITAMIN D, 25 OH (test code = 4958) 18 NG/ML VITAMIN D, 25 [id number] 00:00:00 Test Item Value Reference Range Interpretation Comments VITAMIN D, 25 OH (test code = 4958) 18 NG/ML MICROALBUMIN, [id number] 00:00:00 Test Item Value Reference Range Interpretation Comments ALBUMIN, URINE, RANDOM (test code 10.2 MG/DL = 66949) MICROALBUMIN, [id number] 00:00:00 Test Item Value Reference Range Interpretation Comments ALBUMIN, URINE, RANDOM (test code 10.2 MG/DL = 83472) HIV AB/AG COMBO RFLX [id number] 00:00:00 Test Item Value Reference Range Interpretation Comments HIV 1/2 4TH GEN, RFLX CONF (test NON-REACTIVE code = 3514) HIV AB/AG COMBO RFLX [id number] 00:00:00 Test Item Value Reference Range Interpretation Comments HIV 1/2 4TH GEN, RFLX CONF (test NON-REACTIVE code = 3514) VITAMIN D, 25 [id number] 00:00:00 Test Item Value Reference Range Interpretation Comments VITAMIN D, 25 OH (test code = 4958) 18 NG/ML VITAMIN D, 25 [id number] 00:00:00 Test Item Value Reference Range Interpretation Comments VITAMIN D, 25 OH (test code = 4958) 18 NG/ML LIPID [id number] 02:15:07 Test Item Value Reference Range Interpretation Comments CHOLESTEROL (test 206 MG/DL <200 H code = 2210) TRIGLYCERIDES (test 1120 MG/DL <150 H CUBA CIMEN LIPEMIC code = 2232) RESULTS RECHECK [...] CALCULATE (test code = 2238) COMPREHENSIVE METABOLIC [id number] 02:15:07 Test Item Value Reference Range Interpretation Comments GLUCOSE (test code = 349 MG/DL 70-99 H 2216) BUN (test code = 17 MG/DL 6-20 2207) CREATININE (test 0.80 MG/DL 0.60-1.30 code = 2214) eGFR (2020 CKD-EPI) 94 ML/MIN/1.73 >60 (test code = 60585) CALC BUN/CREAT (test 21 RATIO 6-28 code = 2235) SODIUM (test code = 137 MEQ/L 419-110 5040) POTASSIUM (test code 4.2 MEQ/L 3.5-5.4 = [...] code = 39 U/L 5-40 2218) LIPID [id number] 00:00:00 Test Item Value Reference Range Interpretation Comments CHOLESTEROL (test code = 2210) 206 MG/DL TRIGLYCERIDES (test code = 2232) 1120 MG/DL HDL CHOLESTEROL (test code = 24 MG/DL 2219) CALC LDL CHOL (test code = 2237) (NOTE) MG/DL RISK RATIO LDL/HDL (test code = (NOTE) RATIO 2238) LIPID [id number] 00:00:00 Test Item Value Reference Range Interpretation Comments CHOLESTEROL (test code = 2210) 206 MG/DL TRIGLYCERIDES (test code = 2232) 1120 MG/DL HDL CHOLESTEROL (test code = 24 MG/DL 2220) CALC LDL CHOL (test code = 2237) (NOTE) MG/DL RISK RATIO LDL/HDL (test code = (NOTE) RATIO 2238) COMPREHENSIVE METABOLIC [id number] 00:00:00 Test Item Value Reference Range Interpretation Comments GLUCOSE (test code = 2217) 349 MG/DL BUN (test code = 2208) 17 MG/DL CREATININE (test code = 2214) 0.80 MG/DL eGFR (2020 CKD-EPI) (test code 94 ML/MIN/1.73 = 87954) CALC BUN/CREAT (test code = 21 RATIO [...] code = 2219) 39 U/L COMPREHENSIVE METABOLIC [id number] 00:00:00 Test Item Value Reference Range Interpretation Comments GLUCOSE (test code = 2217) 349 MG/DL BUN (test code = 2208) 17 MG/DL CREATININE (test code = 2214) 0.80 MG/DL eGFR (2020 CKD-EPI) (test code 94 ML/MIN/1.73 = 13902) CALC BUN/CREAT (test code = 21 RATIO [...] (test code = 2219) 39 U/L LIPID [id number] 00:00:00 Test Item Value Reference Range Interpretation Comments CHOLESTEROL (test code = 2210) 206 MG/DL TRIGLYCERIDES (test code = 2232) 1120 MG/DL HDL CHOLESTEROL (test code = 24 MG/DL 2220) CALC LDL CHOL (test code = 2237) (NOTE) MG/DL RISK RATIO LDL/HDL (test code = (NOTE) RATIO 2238) LIPID [id number] 00:00:00 Test Item Value Reference Range Interpretation Comments CHOLESTEROL (test code = 2210) 206 MG/DL TRIGLYCERIDES (test code = 2232) 1120 MG/DL HDL CHOLESTEROL (test code = 24 MG/DL 2220) CALC LDL CHOL (test code = 2237) (NOTE) MG/DL RISK RATIO LDL/HDL (test code = (NOTE) RATIO 2238) COMPREHENSIVE METABOLIC [id number] 00:00:00 Test Item Value Reference Range Interpretation Comments GLUCOSE (test code = 2217) 349 MG/DL BUN (test code = 2208) 17 MG/DL CREATININE (test code = 2214) 0.80 MG/DL eGFR (2020 CKD-EPI) (test code 94 ML/MIN/1.73 = 89320) CALC BUN/CREAT (test code = 21 RATIO [...] code = 2219) 39 U/L COMPREHENSIVE METABOLIC [id number] 00:00:00 Test Item Value Reference Range Interpretation Comments GLUCOSE (test code = 2217) 349 MG/DL BUN (test code = 2208) 17 MG/DL CREATININE (test code = 2214) 0.80 MG/DL eGFR (2020 CKD-EPI) (test code 94 ML/MIN/1.73 = 42591) CALC BUN/CREAT (test code = 21 RATIO [...] (test code = 2219) 39 U/L LIPID [id number] 00:00:00 Test Item Value Reference Range Interpretation Comments CHOLESTEROL (test code = 2210) 206 MG/DL TRIGLYCERIDES (test code = 2232) 1120 MG/DL HDL CHOLESTEROL (test code = 24 MG/DL 0) CALC LDL CHOL (test code = 2237) (NOTE) MG/DL RISK RATIO LDL/HDL (test code = (NOTE) RATIO 2238) LIPID [id number] 00:00:00 Test Item Value Reference Range Interpretation Comments CHOLESTEROL (test code = 2210) 206 MG/DL TRIGLYCERIDES (test code = 2232) 1120 MG/DL HDL CHOLESTEROL (test code = 24 MG/DL 2220) CALC LDL CHOL (test code = 2237) (NOTE) MG/DL RISK RATIO LDL/HDL (test code = (NOTE) RATIO 2238) COMPREHENSIVE METABOLIC [id number] 00:00:00 Test Item Value Reference Range Interpretation Comments GLUCOSE (test code = 2217) 349 MG/DL BUN (test code = 2208) 17 MG/DL CREATININE (test code = 2214) 0.80 MG/DL eGFR (2020 CKD-EPI) (test code 94 ML/MIN/1.73 = 17272) CALC BUN/CREAT (test code = 21 RATIO [...] code = 2219) 39 U/L COMPREHENSIVE METABOLIC [id number] 00:00:00 Test Item Value Reference Range Interpretation Comments GLUCOSE (test code = 2217) 349 MG/DL BUN (test code = 2208) 17 MG/DL CREATININE (test code = 2214) 0.80 MG/DL eGFR (2020 CKD-EPI) (test code 94 ML/MIN/1.73 = 37189) CALC BUN/CREAT (test code = 21 RATIO [...] (test code = 2219) 39 U/L LIPID [id number] 00:00:00 Test Item Value Reference Range Interpretation Comments CHOLESTEROL (test code = 2210) 206 MG/DL TRIGLYCERIDES (test code = 2232) 1120 MG/DL HDL CHOLESTEROL (test code = 24 MG/DL 2220) CALC LDL CHOL (test code = 2237) (NOTE) MG/DL RISK RATIO LDL/HDL (test code = (NOTE) RATIO 2238) LIPID [id number] 00:00:00 Test Item Value Reference Range Interpretation Comments CHOLESTEROL (test code = 2210) 206 MG/DL TRIGLYCERIDES (test code = 2232) 1120 MG/DL HDL CHOLESTEROL (test code = 24 MG/DL 2220) CALC LDL CHOL (test code = 2237) (NOTE) MG/DL RISK RATIO LDL/HDL (test code = (NOTE) RATIO 2238) COMPREHENSIVE METABOLIC [id number] 00:00:00 Test Item Value Reference Range Interpretation Comments GLUCOSE (test code = 2217) 349 MG/DL BUN (test code = 2208) 17 MG/DL CREATININE (test code = 2214) 0.80 MG/DL eGFR (2020 CKD-EPI) (test code 94 ML/MIN/1.73 = 84794) CALC BUN/CREAT (test code = 21 RATIO [...] code = 2219) 39 U/L COMPREHENSIVE METABOLIC [id number] 00:00:00 Test Item Value Reference Range Interpretation Comments GLUCOSE (test code = 2217) 349 MG/DL BUN (test code = 2208) 17 MG/DL CREATININE (test code = 2214) 0.80 MG/DL eGFR (2020 CKD-EPI) (test code 94 ML/MIN/1.73 = 27063) CALC BUN/CREAT (test code = 21 RATIO [...] (test code = 2219) 39 U/L LIPID [id number] 00:00:00 Test Item Value Reference Range Interpretation Comments CHOLESTEROL (test code = 2210) 206 MG/DL TRIGLYCERIDES (test code = 2232) 1120 MG/DL HDL CHOLESTEROL (test code = 24 MG/DL 2220) CALC LDL CHOL (test code = 2237) (NOTE) MG/DL RISK RATIO LDL/HDL (test code = (NOTE) RATIO 2238) LIPID [id number] 00:00:00 Test Item Value Reference Range Interpretation Comments CHOLESTEROL (test code = 2210) 206 MG/DL TRIGLYCERIDES (test code = 2232) 1120 MG/DL HDL CHOLESTEROL (test code = 24 MG/DL 2220) CALC LDL CHOL (test code = 2237) (NOTE) MG/DL RISK RATIO LDL/HDL (test code = (NOTE) RATIO 2238) COMPREHENSIVE METABOLIC [id number] 00:00:00 Test Item Value Reference Range Interpretation Comments GLUCOSE (test code = 2217) 349 MG/DL BUN (test code = 2208) 17 MG/DL CREATININE (test code = 2214) 0.80 MG/DL eGFR (2020 CKD-EPI) (test code 94 ML/MIN/1.73 = 49278) CALC BUN/CREAT (test code = 21 RATIO [...] code = 2219) 39 U/L COMPREHENSIVE METABOLIC [id number] 00:00:00 Test Item Value Reference Range Interpretation Comments GLUCOSE (test code = 2217) 349 MG/DL BUN (test code = 2208) 17 MG/DL CREATININE (test code = 2214) 0.80 MG/DL eGFR (2020 CKD-EPI) (test code 94 ML/MIN/1.73 = 91660) CALC BUN/CREAT (test code = 21 RATIO [...] (test code = 2219) 39 U/L LIPID [id number] 00:00:00 Test Item Value Reference Range Interpretation Comments CHOLESTEROL (test code = 2210) 206 MG/DL TRIGLYCERIDES (test code = 2232) 1120 MG/DL HDL CHOLESTEROL (test code = 24 MG/DL 2220) CALC LDL CHOL (test code = 2237) (NOTE) MG/DL RISK RATIO LDL/HDL (test code = (NOTE) RATIO 2238) LIPID [id number] 00:00:00 Test Item Value Reference Range Interpretation Comments CHOLESTEROL (test code = 2210) 206 MG/DL TRIGLYCERIDES (test code = 2232) 1120 MG/DL HDL CHOLESTEROL (test code = 24 MG/DL 2220) CALC LDL CHOL (test code = 2237) (NOTE) MG/DL RISK RATIO LDL/HDL (test code = (NOTE) RATIO 2238) COMPREHENSIVE METABOLIC [id number] 00:00:00 Test Item Value Reference Range Interpretation Comments GLUCOSE (test code = 2217) 349 MG/DL BUN (test code = 2208) 17 MG/DL CREATININE (test code = 2214) 0.80 MG/DL eGFR (2020 CKD-EPI) (test code 94 ML/MIN/1.73 = 79356) CALC BUN/CREAT (test code = 21 RATIO [...] code = 2219) 39 U/L COMPREHENSIVE METABOLIC [id number] 00:00:00 Test Item Value Reference Range Interpretation Comments GLUCOSE (test code = 2217) 349 MG/DL BUN (test code = 2208) 17 MG/DL CREATININE (test code = 2214) 0.80 MG/DL eGFR (2020 CKD-EPI) (test code 94 ML/MIN/1.73 = 58605) CALC BUN/CREAT (test code = 21 RATIO [...] (test code = 2219) 39 U/L LIPID [id number] 00:00:00 Test Item Value Reference Range Interpretation Comments CHOLESTEROL (test code = 2210) 206 MG/DL TRIGLYCERIDES (test code = 2232) 1120 MG/DL HDL CHOLESTEROL (test code = 24 MG/DL 2220) CALC LDL CHOL (test code = 2237) (NOTE) MG/DL RISK RATIO LDL/HDL (test code = (NOTE) RATIO 2238) LIPID [id number] 00:00:00 Test Item Value Reference Range Interpretation Comments CHOLESTEROL (test code = 2210) 206 MG/DL TRIGLYCERIDES (test code = 2232) 1120 MG/DL HDL CHOLESTEROL (test code = 24 MG/DL 2220) CALC LDL CHOL (test code = 2237) (NOTE) MG/DL RISK RATIO LDL/HDL (test code = (NOTE) RATIO 2238) COMPREHENSIVE METABOLIC [id number] 00:00:00 Test Item Value Reference Range Interpretation Comments GLUCOSE (test code = 2217) 349 MG/DL BUN (test code = 2208) 17 MG/DL CREATININE (test code = 2214) 0.80 MG/DL eGFR (2020 CKD-EPI) (test code 94 ML/MIN/1.73 = 27115) CALC BUN/CREAT (test code = 21 RATIO [...] code = 2219) 39 U/L COMPREHENSIVE METABOLIC [id number] 00:00:00 Test Item Value Reference Range Interpretation Comments GLUCOSE (test code = 2217) 349 MG/DL BUN (test code = 2208) 17 MG/DL CREATININE (test code = 2214) 0.80 MG/DL eGFR (2020 CKD-EPI) (test code 94 ML/MIN/1.73 = 56531) CALC BUN/CREAT (test code = 21 RATIO [...] (test code = 2219) 39 U/L LIPID [id number] 00:00:00 Test Item Value Reference Range Interpretation Comments CHOLESTEROL (test code = 2210) 206 MG/DL TRIGLYCERIDES (test code = 2232) 1120 MG/DL HDL CHOLESTEROL (test code = 24 MG/DL 2220) CALC LDL CHOL (test code = 2237) (NOTE) MG/DL RISK RATIO LDL/HDL (test code = (NOTE) RATIO 2238) COMPREHENSIVE METABOLIC [id number] 00:00:00 Test Item Value Reference Range Interpretation Comments GLUCOSE (test code = 2217) 349 MG/DL BUN (test code = 2208) 17 MG/DL CREATININE (test code = 2214) 0.80 MG/DL eGFR (2020 CKD-EPI) (test code 94 ML/MIN/1.73 = 30117) CALC BUN/CREAT (test code = 21 RATIO [...] (test code = 2219) 39 U/L LIPID [id number] 00:00:00 Test Item Value Reference Range Interpretation Comments CHOLESTEROL (test code = 2210) 206 MG/DL TRIGLYCERIDES (test code = 2232) 1120 MG/DL HDL CHOLESTEROL (test code = 24 MG/DL 2220) CALC LDL CHOL (test code = 2237) (NOTE) MG/DL RISK RATIO LDL/HDL (test code = (NOTE) RATIO 2238) LIPID [id number] 00:00:00 Test Item Value Reference Range Interpretation Comments CHOLESTEROL (test code = 2210) 206 MG/DL TRIGLYCERIDES (test code = 2232) 1120 MG/DL HDL CHOLESTEROL (test code = 24 MG/DL 0) CALC LDL CHOL (test code = 2237) (NOTE) MG/DL RISK RATIO LDL/HDL (test code = (NOTE) RATIO 2238) COMPREHENSIVE METABOLIC [id number] 00:00:00 Test Item Value Reference Range Interpretation Comments GLUCOSE (test code = 2217) 349 MG/DL BUN (test code = 2208) 17 MG/DL CREATININE (test code = 2214) 0.80 MG/DL eGFR (2020 CKD-EPI) (test code 94 ML/MIN/1.73 = 31823) CALC BUN/CREAT (test code = 21 RATIO [...] code = 2219) 39 U/L COMPREHENSIVE METABOLIC [id number] 00:00:00 Test Item Value Reference Range Interpretation Comments GLUCOSE (test code = 2217) 349 MG/DL BUN (test code = 2208) 17 MG/DL CREATININE (test code = 2214) 0.80 MG/DL eGFR (2020 CKD-EPI) (test code 94 ML/MIN/1.73 = 08933) CALC BUN/CREAT (test code = 21 RATIO [...] (test code = 2219) 39 U/L LIPID [id number] 00:00:00 Test Item Value Reference Range Interpretation Comments CHOLESTEROL (test code = 2210) 206 MG/DL TRIGLYCERIDES (test code = 2232) 1120 MG/DL HDL CHOLESTEROL (test code = 24 MG/DL 2220) CALC LDL CHOL (test code = 2237) (NOTE) MG/DL RISK RATIO LDL/HDL (test code = (NOTE) RATIO 2238) LIPID [id number] 00:00:00 Test Item Value Reference Range Interpretation Comments CHOLESTEROL (test code = 2210) 206 MG/DL TRIGLYCERIDES (test code = 2232) 1120 MG/DL HDL CHOLESTEROL (test code = 24 MG/DL 2220) CALC LDL CHOL (test code = 2237) (NOTE) MG/DL RISK RATIO LDL/HDL (test code = (NOTE) RATIO 2238) COMPREHENSIVE METABOLIC [id number] 00:00:00 Test Item Value Reference Range Interpretation Comments GLUCOSE (test code = 2217) 349 MG/DL BUN (test code = 2208) 17 MG/DL CREATININE (test code = 2214) 0.80 MG/DL eGFR (2020 CKD-EPI) (test code 94 ML/MIN/1.73 = 63945) CALC BUN/CREAT (test code = 21 RATIO [...] code = 2219) 39 U/L COMPREHENSIVE METABOLIC [id number] 00:00:00 Test Item Value Reference Range Interpretation Comments GLUCOSE (test code = 2217) 349 MG/DL BUN (test code = 2208) 17 MG/DL CREATININE (test code = 2214) 0.80 MG/DL eGFR (2020 CKD-EPI) (test code 94 ML/MIN/1.73 = 29803) CALC BUN/CREAT (test code = 21 RATIO [...] (test code = 2219) 39 U/L LIPID [id number] 00:00:00 Test Item Value Reference Range Interpretation Comments CHOLESTEROL (test code = 2210) 206 MG/DL TRIGLYCERIDES (test code = 2232) 1120 MG/DL HDL CHOLESTEROL (test code = 24 MG/DL 2220) CALC LDL CHOL (test code = 2237) (NOTE) MG/DL RISK RATIO LDL/HDL (test code = (NOTE) RATIO 2238) LIPID [id number] 00:00:00 Test Item Value Reference Range Interpretation Comments CHOLESTEROL (test code = 2210) 206 MG/DL TRIGLYCERIDES (test code = 2232) 1120 MG/DL HDL CHOLESTEROL (test code = 24 MG/DL 2220) CALC LDL CHOL (test code = 2237) (NOTE) MG/DL RISK RATIO LDL/HDL (test code = (NOTE) RATIO 2238) COMPREHENSIVE METABOLIC [id number] 00:00:00 Test Item Value Reference Range Interpretation Comments GLUCOSE (test code = 2217) 349 MG/DL BUN (test code = 2208) 17 MG/DL CREATININE (test code = 2214) 0.80 MG/DL eGFR (2020 CKD-EPI) (test code 94 ML/MIN/1.73 = 03688) CALC BUN/CREAT (test code = 21 RATIO [...] code = 2219) 39 U/L COMPREHENSIVE METABOLIC [id number] 00:00:00 Test Item Value Reference Range Interpretation Comments GLUCOSE (test code = 2217) 349 MG/DL BUN (test code = 2208) 17 MG/DL CREATININE (test code = 2214) 0.80 MG/DL eGFR (2020 CKD-EPI) (test code 94 ML/MIN/1.73 = 45861) CALC BUN/CREAT (test code = 21 RATIO [...] (test code = 2219) 39 U/L HEMOGLOBIN [id number] 04:43:57 Test Item Value Reference Range Interpretation Comments HEMOGLOBIN A1c (test 11.5 % 4.2-5.6 H [employer] DIABETES code = 01097) ASSOCIATION IDELINES FOR HGB A1C: PREDIABETES/INC REASED [...] ATE TESTING OR LABORATORY C ONSULTATION. HEMOGLOBIN [id number] 00:00:00 Test Item Value Reference Range Interpretation Comments HEMOGLOBIN A1c (test code = 49026) 11.5 % HEMOGLOBIN [id number] 00:00:00 Test Item Value Reference Range Interpretation Comments HEMOGLOBIN A1c (test code = 08191) 11.5 % HEMOGLOBIN [id number] 00:00:00 Test Item Value Reference Range Interpretation Comments HEMOGLOBIN A1c (test code = 80490) 11.5 % HEMOGLOBIN [id number] 00:00:00 Test Item Value Reference Range Interpretation Comments HEMOGLOBIN A1c (test code = 30088) 11.5 % HEMOGLOBIN [id number] 00:00:00 Test Item Value Reference Range Interpretation Comments HEMOGLOBIN A1c (test code = 21119) 11.5 % HEMOGLOBIN [id number] 00:00:00 Test Item Value Reference Range Interpretation Comments HEMOGLOBIN A1c (test code = 29841) 11.5 % HEMOGLOBIN [id number] 00:00:00 Test Item Value Reference Range Interpretation Comments HEMOGLOBIN A1c (test code = 19170) 11.5 % HEMOGLOBIN [id number] 00:00:00 Test Item Value Reference Range Interpretation Comments HEMOGLOBIN A1c (test code = 78794) 11.5 % HEMOGLOBIN [id number] 00:00:00 Test Item Value Reference Range Interpretation Comments HEMOGLOBIN A1c (test code = 72641) 11.5 % HEMOGLOBIN [id number] 00:00:00 Test Item Value Reference Range Interpretation Comments HEMOGLOBIN A1c (test code = 85180) 11.5 % HEMOGLOBIN [id number] 00:00:00 Test Item Value Reference Range Interpretation Comments HEMOGLOBIN A1c (test code = 96113) 11.5 % HEMOGLOBIN [id number] 00:00:00 Test Item Value Reference Range Interpretation Comments HEMOGLOBIN A1c (test code = 53619) 11.5 % HEMOGLOBIN [id number] 00:00:00 Test Item Value Reference Range Interpretation Comments HEMOGLOBIN A1c (test code = 76137) 11.5 % HEMOGLOBIN [id number] 00:00:00 Test Item Value Reference Range Interpretation Comments HEMOGLOBIN A1c (test code = 77079) 11.5 % HEMOGLOBIN [id number] 00:00:00 Test Item Value Reference Range Interpretation Comments HEMOGLOBIN A1c (test code = 94330) 11.5 % HEMOGLOBIN [id number] 00:00:00 Test Item Value Reference Range Interpretation Comments HEMOGLOBIN A1c (test code = 27497) 11.5 % HEMOGLOBIN [id number] 00:00:00 Test Item Value Reference Range Interpretation Comments HEMOGLOBIN A1c (test code = 24895) 11.5 % HEMOGLOBIN [id number] 00:00:00 Test Item Value Reference Range Interpretation Comments HEMOGLOBIN A1c (test code = 89190) 11.5 % HEMOGLOBIN [id number] 00:00:00 Test Item Value Reference Range Interpretation Comments HEMOGLOBIN A1c (test code = 83094) 11.5 % HEMOGLOBIN [id number] 00:00:00 Test Item Value Reference Range Interpretation Comments HEMOGLOBIN A1c (test code = 42921) 11.5 % HEMOGLOBIN [id number] 00:00:00 Test Item Value Reference Range Interpretation Comments HEMOGLOBIN A1c (test code = 27696) 11.5 % HEMOGLOBIN [id number] 00:00:00 Test Item Value Reference Range Interpretation Comments HEMOGLOBIN A1c (test code = 79738) 11.5 % HEMOGLOBIN [id number] 00:00:00 Test Item Value Reference Range Interpretation Comments HEMOGLOBIN A1c (test code = 30651) 11.5 % HEMOGLOBIN [id number] 00:00:00 Test Item Value Reference Range Interpretation Comments HEMOGLOBIN A1c (test code = 43630) 11.5 % HEMOGLOBIN [id number] 00:00:00 Test Item Value Reference Range Interpretation Comments HEMOGLOBIN A1c (test code = 83852) 11.5 % HEMOGLOBIN [id number] 00:00:00 Test Item Value Reference Range Interpretation Comments HEMOGLOBIN A1c (test code = 47693) 11.5 % HEMOGLOBIN [id number] 00:00:00 Test Item Value Reference Range Interpretation Comments HEMOGLOBIN A1c (test code = 22585) 11.5 % HEMOGLOBIN [id number] 00:00:00 Test Item Value Reference Range Interpretation Comments HEMOGLOBIN A1c (test code = 58721) 11.5 % HEMOGLOBIN [id number] 00:00:00 Test Item Value Reference Range Interpretation Comments HEMOGLOBIN A1c (test code = 66869) 11.5 % HEMOGLOBIN [id number] 00:00:00 Test Item Value Reference Range Interpretation Comments HEMOGLOBIN A1c (test code = 51760) 11.5 % HEMOGLOBIN [id number] 00:00:00 Test Item Value Reference Range Interpretation Comments HEMOGLOBIN A1c (test code = 21289) 11.5 % HEMOGLOBIN [id number] 00:00:00 Test Item Value Reference Range Interpretation Comments HEMOGLOBIN A1c (test code = 41960) 11.5 % CULTURE, [id number] 11:34:56SPECIMEN NUMBER: [id number] CULTURE, URINE SPECIMEN NUMBER: [id number] SPECIMEN COMMENT: URINE SOURCE: URINE REPORT STATUS: FINAL FINAL REPORT: 10/25/2021 10-50,000 CFU/ML UROGENITAL NORMA PRESENT NO CO MMON PATHOGENSCULTURE, [id number] 00:00:00 Test Item Value Reference Range Interpretation Comments CULTURE, URINE (test SPECIMEN NUMBER: code = 72413) [id number] CULTURE, [id number] 00:00:00 Test Item Value Reference Range Interpretation Comments CULTURE, URINE (test SPECIMEN NUMBER: code = 56979) [id number] CULTURE, [id number] 00:00:00 Test Item Value Reference Range Interpretation Comments CULTURE, URINE (test SPECIMEN NUMBER: code = 93737) [id number] CULTURE, [id number] 00:00:00 Test Item Value Reference Range Interpretation Comments CULTURE, URINE (test SPECIMEN NUMBER: code = 20660) [id number] CULTURE, [id number] 00:00:00 Test Item Value Reference Range Interpretation Comments CULTURE, URINE (test SPECIMEN NUMBER: code = 75888) [id number] CULTURE, [id number] 00:00:00 Test Item Value Reference Range Interpretation Comments CULTURE, URINE (test SPECIMEN NUMBER: code = 31115) [id number] CULTURE, [id number] 00:00:00 Test Item Value Reference Range Interpretation Comments CULTURE, URINE (test SPECIMEN NUMBER: code = 80623) [id number] CULTURE, [id number] 00:00:00 Test Item Value Reference Range Interpretation Comments CULTURE, URINE (test SPECIMEN NUMBER: code = 78830) [id number] CULTURE, [id number] 00:00:00 Test Item Value Reference Range Interpretation Comments CULTURE, URINE (test SPECIMEN NUMBER: code = 65935) [id number] CULTURE, [id number] 00:00:00 Test Item Value Reference Range Interpretation Comments CULTURE, URINE (test SPECIMEN NUMBER: code = 34724) [id number] CULTURE, [id number] 00:00:00 Test Item Value Reference Range Interpretation Comments CULTURE, URINE (test SPECIMEN NUMBER: code = 48661) [id number] CULTURE, [id number] 00:00:00 Test Item Value Reference Range Interpretation Comments CULTURE, URINE (test SPECIMEN NUMBER: code = 24439) [id number] CULTURE, [id number] 00:00:00 Test Item Value Reference Range Interpretation Comments CULTURE, URINE (test SPECIMEN NUMBER: code = 81546) [id number] CULTURE, [id number] 00:00:00 Test Item Value Reference Range Interpretation Comments CULTURE, URINE (test SPECIMEN NUMBER: code = 82920) [id number] CULTURE, [id number] 00:00:00 Test Item Value Reference Range Interpretation Comments CULTURE, URINE (test SPECIMEN NUMBER: code = 61424) [id number] CULTURE, [id number] 00:00:00 Test Item Value Reference Range Interpretation Comments CULTURE, URINE (test SPECIMEN NUMBER: code = 81138) [id number] CULTURE, [id number] 00:00:00 Test Item Value Reference Range Interpretation Comments CULTURE, URINE (test SPECIMEN NUMBER: code = 07888) [id number] CULTURE, [id number] 00:00:00 Test Item Value Reference Range Interpretation Comments CULTURE, URINE (test SPECIMEN NUMBER: code = 74486) [id number] CULTURE, [id number] 00:00:00 Test Item Value Reference Range Interpretation Comments CULTURE, URINE (test SPECIMEN NUMBER: code = 40289) [id number] CULTURE, [id number] 00:00:00 Test Item Value Reference Range Interpretation Comments CULTURE, URINE (test SPECIMEN NUMBER: code = 93206) [id number] CULTURE, [id number] 00:00:00 Test Item Value Reference Range Interpretation Comments CULTURE, URINE (test SPECIMEN NUMBER: code = 28307) [id number] VAGINAL PATHOGENS DNA [id number] 11:55:20 Test Item Value Reference Range Interpretation Comments ANDIE SPECIES (test NEGATIVE NEGATIVE code = 87647) G. VAGINALIS (test NEGATIVE NEGATIVE code = 30755) T. VAGINALIS (test NEGATIVE NEGATIVE UNLESS O THERWISE code = ) INDICATED, ALL TESTING PERFORMED [facility] [address] [place] [address] 4 LABORATORY DIRE CTOR: NOAH TODD M.D. CLIA NUMBER [id number] [place] [id number] VAGINAL PATHOGENS DNA [id number] 00:00:00 Test Item Value Reference Range Interpretation Comments ANDIE SPECIES (test code = 46122) NEGATIVE G. VAGINALIS (test code = 11825) NEGATIVE T. VAGINALIS (test code = 26888) NEGATIVE VAGINAL PATHOGENS DNA [id number] 00:00:00 Test Item Value Reference Range Interpretation Comments ANDIE SPECIES (test code = 49546) NEGATIVE G. VAGINALIS (test code = 09564) NEGATIVE T. VAGINALIS (test code = 71413) NEGATIVE VAGINAL PATHOGENS DNA [id number] 00:00:00 Test Item Value Reference Range Interpretation Comments ANDIE SPECIES (test code = 13959) NEGATIVE G. VAGINALIS (test code = 60183) NEGATIVE T. VAGINALIS (test code = 96571) NEGATIVE VAGINAL PATHOGENS DNA [id number] 00:00:00 Test Item Value Reference Range Interpretation Comments ANDIE SPECIES (test code = 38265) NEGATIVE G. VAGINALIS (test code = 99915) NEGATIVE T. VAGINALIS (test code = 05077) NEGATIVE VAGINAL PATHOGENS DNA [id number] 00:00:00 Test Item Value Reference Range Interpretation Comments ANDIE SPECIES (test code = 95462) NEGATIVE G. VAGINALIS (test code = 46681) NEGATIVE T. VAGINALIS (test code = 75696) NEGATIVE VAGINAL PATHOGENS DNA [id number] 00:00:00 Test Item Value Reference Range Interpretation Comments ANDIE SPECIES (test code = 76050) NEGATIVE G. VAGINALIS (test code = 55508) NEGATIVE T. VAGINALIS (test code = 39286) NEGATIVE VAGINAL PATHOGENS DNA [id number] 00:00:00 Test Item Value Reference Range Interpretation Comments ADNIE SPECIES (test code = 66555) NEGATIVE G. VAGINALIS (test code = 02672) NEGATIVE T. VAGINALIS (test code = 35978) NEGATIVE VAGINAL PATHOGENS DNA [id number] 00:00:00 Test Item Value Reference Range Interpretation Comments ANDIE SPECIES (test code = 43805) NEGATIVE G. VAGINALIS (test code = 78492) NEGATIVE T. VAGINALIS (test code = 23931) NEGATIVE VAGINAL PATHOGENS DNA [id number] 00:00:00 Test Item Value Reference Range Interpretation Comments ANDIE SPECIES (test code = 08868) NEGATIVE G. VAGINALIS (test code = 14985) NEGATIVE T. VAGINALIS (test code = 82303) NEGATIVE VAGINAL PATHOGENS DNA [id number] 00:00:00 Test Item Value Reference Range Interpretation Comments ANDIE SPECIES (test code = 50066) NEGATIVE G. VAGINALIS (test code = 15558) NEGATIVE T. VAGINALIS (test code = 48826) NEGATIVE VAGINAL PATHOGENS DNA [id number] 00:00:00 Test Item Value Reference Range Interpretation Comments ANDIE SPECIES (test code = 32666) NEGATIVE G. VAGINALIS (test code = 48100) NEGATIVE T. VAGINALIS (test code = 88054) NEGATIVE VAGINAL PATHOGENS DNA [id number] 00:00:00 Test Item Value Reference Range Interpretation Comments ANDIE SPECIES (test code = 10433) NEGATIVE G. VAGINALIS (test code = 87807) NEGATIVE T. VAGINALIS (test code = 97917) NEGATIVE VAGINAL PATHOGENS DNA [id number] 00:00:00 Test Item Value Reference Range Interpretation Comments ANDIE SPECIES (test code = 49593) NEGATIVE G. VAGINALIS (test code = 21868) NEGATIVE T. VAGINALIS (test code = 17223) NEGATIVE VAGINAL PATHOGENS DNA [id number] 00:00:00 Test Item Value Reference Range Interpretation Comments ANDIE SPECIES (test code = 53510) NEGATIVE G. VAGINALIS (test code = 63922) NEGATIVE T. VAGINALIS (test code = 37920) NEGATIVE VAGINAL PATHOGENS DNA [id number] 00:00:00 Test Item Value Reference Range Interpretation Comments ANDIE SPECIES (test code = 67117) NEGATIVE G. VAGINALIS (test code = 01773) NEGATIVE T. VAGINALIS (test code = 00493) NEGATIVE VAGINAL PATHOGENS DNA [id number] 00:00:00 Test Item Value Reference Range Interpretation Comments ANDIE SPECIES (test code = 65620) NEGATIVE G. VAGINALIS (test code = 49406) NEGATIVE T. VAGINALIS (test code = 19322) NEGATIVE VAGINAL PATHOGENS DNA [id number] 00:00:00 Test Item Value Reference Range Interpretation Comments ANDIE SPECIES (test code = 50936) NEGATIVE G. VAGINALIS (test code = 77050) NEGATIVE T. VAGINALIS (test code = 54000) NEGATIVE VAGINAL PATHOGENS DNA [id number] 00:00:00 Test Item Value Reference Range Interpretation Comments ANDIE SPECIES (test code = 58724) NEGATIVE G. VAGINALIS (test code = 02862) NEGATIVE T. VAGINALIS (test code = 95068) NEGATIVE VAGINAL PATHOGENS DNA [id number] 00:00:00 Test Item Value Reference Range Interpretation Comments ANDIE SPECIES (test code = 02028) NEGATIVE G. VAGINALIS (test code = 40183) NEGATIVE T. VAGINALIS (test code = 64198) NEGATIVE VAGINAL PATHOGENS DNA [id number] 00:00:00 Test Item Value Reference Range Interpretation Comments ANDIE SPECIES (test code = 44150) NEGATIVE G. VAGINALIS (test code = 24485) NEGATIVE T. VAGINALIS (test code = 58042) NEGATIVE VAGINAL PATHOGENS DNA [id number] 00:00:00 Test Item Value Reference Range Interpretation Comments ANDIE SPECIES (test code = 66796) NEGATIVE G. VAGINALIS (test code = 02599) NEGATIVE T. VAGINALIS (test code = 49258) NEGATIVE POCT GLUCOSE (AUTOMATED)2021-10-17 01:51:54 Test Item Value Reference Range Interpretation Comments POCT GLU (test code = 1890589555) 365 mg/dL 70-110 H Lab Interpretation (test code = Abnormal 21228-2) [facility] GLUCOSE (AUTOMATED)2021-10-17 00:46:51 Test Item Value Reference Range Interpretation Comments POCT GLU (test code = 5743769508) 435 mg/dL 70-110 H Lab Interpretation (test code = Abnormal 89003-6) [facility] GLUCOSE(AGE >30DAYS)2021-10-17 00:41:00 Test Item Value Reference Range Interpretation Comments POCT Glu (age>30days) (test code = 435 mg/dL 70-110 A 3342) Lab Interpretation (test code = Abnormal 79335-2) [facility] [id number] 23:40:42 Test Item Value Reference Interpretation Comments Range TROPONIN I (test 0.001 ng/mL See_Comment [Automated code = 2131330613) message] The system which generated this result [...] biotin. Lab Interpretation Normal (test code = 65017-0) [facility] [id number] 23:37:40 Test Item Value Reference Range Interpretation Comments NT-proBNP (test code 20 pg/mL See_Comment [Autom ated = 7471145916) message] The system which generated this result transmitted reference range : <=125. The reference range was not used to interpret this result as normal/abnormal . CALVIN (test code = CALVIN) Biotin has been reported to cause a negative bias, interpret results relative to patient's use of biotin. Lab Interpretation Normal (test code = 34455-2) [facility] METABOLIC PANEL (59873)2021-10-16 23:29:18 Test Item Value Reference Range Interpretation Comments NA (test code = 134 mmol/L 135-145 L 0042860501) K (test code = 4.4 mmol/L 3.5-5.0 0644723234) CL (test code = 97 mmol/L 98-108 L 9604935880) CO2 TOTAL (test code = 23 mmol/L 23-31 5955570201) AGAP (test code = 2-16 0705225717) BUN (test code = 21 mg/dL 7-23 1083661351) GLUCOSE (test code = 431 mg/dL 70-110 H 0157900752) CREATININE (test code = 0.88 mg/dL 0.50-1.04 2488219172) TOTAL BILI (test code = 0.5 mg/dL 0.1-1.4 3975440913) CALCIUM (test code = 9.2 mg/dL 8.6-10.6 6992712846) T PROTEIN (test code = 7.4 g/dL 6.3-8.2 1549304947) ALBUMIN (test code = 4.7 g/dL 3.5-5.0 8030583076) ALK PHOS (test code = 52 U/L 34-122 4348520482) ALTv (test code = 30 U/L 5-35 1742-6) AST(SGOT) (test code = 25 U/L 13-40 1240689936) eGFR (test code = mL/min/1.73m2 7857581428) CALVIN (test code = CALVIN) Association of [...] tests). Lab Interpretation Abnormal (test code = 67573-1) [facility] WITH [id number] 23:20:10 Test Item Value Reference Range Interpretation Comments WBC (test code = See_Comment [Automated 6990-2) message] The sy stem which generated this [...] RDW-SD (test code = 40.5 fL 39.0-49.9 61873-4) RDW-CV (test code = 13.5 % 12.0-15.5 788-0) PLT (test code = See_Comment [Automated 777-3) message] The sy stem which generated this result transmitted reference range : 166 - 358 10*3/ ?L. The reference r doretha was not used to interpret this result as normal/abnormal . MPV (test code = 9.6 fL 9.5-12.9 67711-5) NRBC/100 WBC (test See_Comment [Automat ed code = 9793460608) message] The system which generated this result transmitted reference range : 0.0 - 10.0 /100 WBCs. The refer ence range was not u sed to interpret th is result as normal/abnormal . NRBC x10^3 (test code <0.01 See_Comment [Auto mated = 2716803349) message] The s ystem which generated this result transmitted reference range : 10*3/?L. The reference range was not used to interpret this result as normal/abnormal . GRAN MAT (NEUT) % 43.2 % (test code = 770-8) IMM GRAN % (test code 0.70 % = 7319096035) LYMPH % (test code = 42.8 % 736-9) MONO % (test code = 9.2 % 5905-5) EOS % (test code = 3.0 % 713-8) BASO % (test code = 1.1 % 706-2) GRAN MAT x10^3(ANC) 3.15 10*3/uL 1.88-7.09 (test code = 2865883581) IMM GRAN x10^3 (test 0.05 10*3/uL 0.00-0.06 code = 8204849688) LYMPH x10^3 (test code 3.12 10*3/uL 1.32-3.29 = 731-0) MONO x10^3 (test code 0.67 10*3/uL 0.33-0.92 = 742-7) EOS x10^3 (test code = 0.22 10*3/uL 0.03-0.39 711-2) BASO x10^3 (test code 0.08 10*3/uL 0.01-0.07 H = 704-7) Lab Interpretation Abnormal (test code = 04511-5) [facility] Whole [id number] 23:09:32 Test Item Value Reference Range Interpretation Comments LACTIC ACID (test code = 1.94 mmol/L 0.50-2.20 2367975986) Lab Interpretation (test code = Normal 71012-3) [facility] [id number] 22:34:00 Test Item Value Reference Range Interpretation Comments POCT PREG (test code = 1605) Negative On board controls acceptable with Present C Line (test code = 3574) POCT PREG LOT # (test code = 3575) [id number] POCT PREG TEST DATE (test 2023-04-09 code = 3576) Lab Interpretation (test code = Normal 86499-8) [facility], [id number] 08:52:36SPECIMEN NUMBER: [id number] CULTURE, URINE SPECIMEN NUMBER: [id number] SPECIMEN COMMENT: URINE SOURCE:URINE REPORT STATUS: FINAL FINAL REPORT: 10/12/2021 >100,000 CFU/ML UROGENITAL NORMA PRESENT NO COMMON PATHOGENS UNLESS OTHERWISE INDICATED, ALL TESTING PERFORMED [facility]. [address] [place] [address] [employer]GER [employer]ION: NOAH DICKENS M.D. CLIA NUMBER [id number] [facility] [place] [id number], [id number] 00:00:00 Test Item Value Reference Range Interpretation Comments CULTURE, URINE (test SPECIMEN NUMBER: code = 62687) [id number] CULTURE, [id number] 00:00:00 Test Item Value Reference Range Interpretation Comments CULTURE, URINE (test SPECIMEN NUMBER: code = 88706) [id number] CULTURE, [id number] 00:00:00 Test Item Value Reference Range Interpretation Comments CULTURE, URINE (test SPECIMEN NUMBER: code = 00077) [id number] CULTURE, [id number] 00:00:00 Test Item Value Reference Range Interpretation Comments CULTURE, URINE (test SPECIMEN NUMBER: code = 02601) [id number] CULTURE, [id number] 00:00:00 Test Item Value Reference Range Interpretation Comments CULTURE, URINE (test SPECIMEN NUMBER: code = 91914) [id number] CULTURE, [id number] 00:00:00 Test Item Value Reference Range Interpretation Comments CULTURE, URINE (test SPECIMEN NUMBER: code = 76796) [id number] CULTURE, [id number] 00:00:00 Test Item Value Reference Range Interpretation Comments CULTURE, URINE (test SPECIMEN NUMBER: code = 49868) [id number] CULTURE, [id number] 00:00:00 Test Item Value Reference Range Interpretation Comments CULTURE, URINE (test SPECIMEN NUMBER: code = 46004) [id number] CULTURE, [id number] 00:00:00 Test Item Value Reference Range Interpretation Comments CULTURE, URINE (test SPECIMEN NUMBER: code = 53912) [id number] CULTURE, [id number] 00:00:00 Test Item Value Reference Range Interpretation Comments CULTURE, URINE (test SPECIMEN NUMBER: code = 18915) [id number] CULTURE, [id number] 00:00:00 Test Item Value Reference Range Interpretation Comments CULTURE, URINE (test SPECIMEN NUMBER: code = 09192) [id number] CULTURE, [id number] 00:00:00 Test Item Value Reference Range Interpretation Comments CULTURE, URINE (test SPECIMEN NUMBER: code = 50127) [id number] CULTURE, [id number] 00:00:00 Test Item Value Reference Range Interpretation Comments CULTURE, URINE (test SPECIMEN NUMBER: code = 59623) [id number] CULTURE, [id number] 00:00:00 Test Item Value Reference Range Interpretation Comments CULTURE, URINE (test SPECIMEN NUMBER: code = 64647) [id number] CULTURE, [id number] 00:00:00 Test Item Value Reference Range Interpretation Comments CULTURE, URINE (test SPECIMEN NUMBER: code = 57401) [id number] CULTURE, [id number] 00:00:00 Test Item Value Reference Range Interpretation Comments CULTURE, URINE (test SPECIMEN NUMBER: code = 37875) [id number] CULTURE, [id number] 00:00:00 Test Item Value Reference Range Interpretation Comments CULTURE, URINE (test SPECIMEN NUMBER: code = 91455) [id number] CULTURE, [id number] 00:00:00 Test Item Value Reference Range Interpretation Comments CULTURE, URINE (test SPECIMEN NUMBER: code = 20764) [id number] CULTURE, [id number] 00:00:00 Test Item Value Reference Range Interpretation Comments CULTURE, URINE (test SPECIMEN NUMBER: code = 72127) [id number] CULTURE, [id number] 00:00:00 Test Item Value Reference Range Interpretation Comments CULTURE, URINE (test SPECIMEN NUMBER: code = 65319) [id number] CULTURE, [id number] 00:00:00 Test Item Value Reference Range Interpretation Comments CULTURE, URINE (test SPECIMEN NUMBER: code = 38663) [id number] URINE CULTURE, NO [id number] 09:46:36SPECIMEN NUMBER: [id number] URINE CULTURE, NO SENS SPECIMEN NUMBER: [id number] SPECIMEN COMMENT: URINESOURCE: URINE REPORT STATUS: FINAL FINAL REPORT: 10/08/2021 50-100,000 CFU/ML UROGENITAL NORMA PRESENT NO COMMON PATHOGENSURINE CULTURE, NO [id number] 00:00:00 Test Item Value Reference Range Interpretation Comments URINE CULTURE, NO SPECIMEN NUMBER: SENS (test code = 264749597 99754) URINE CULTURE, NO [id number] 00:00:00 Test Item Value Reference Range Interpretation Comments URINE CULTURE, NO SPECIMEN NUMBER: SENS (test code = 978341431 84786) URINE CULTURE, NO [id number] 00:00:00 Test Item Value Reference Range Interpretation Comments URINE CULTURE, NO SPECIMEN NUMBER: SENS (test code = 637126567 25942) URINE CULTURE, NO [id number] 00:00:00 Test Item Value Reference Range Interpretation Comments URINE CULTURE, NO SPECIMEN NUMBER: SENS (test code = 591514200 84496) URINE CULTURE, NO [id number] 00:00:00 Test Item Value Reference Range Interpretation Comments URINE CULTURE, NO SPECIMEN NUMBER: SENS (test code = 329552716 44178) URINE CULTURE, NO [id number] 00:00:00 Test Item Value Reference Range Interpretation Comments URINE CULTURE, NO SPECIMEN NUMBER: SENS (test code = 714991896 65176) URINE CULTURE, NO [id number] 00:00:00 Test Item Value Reference Range Interpretation Comments URINE CULTURE, NO SPECIMEN NUMBER: SENS (test code = 383132166 56263) URINE CULTURE, NO [id number] 00:00:00 Test Item Value Reference Range Interpretation Comments URINE CULTURE, NO SPECIMEN NUMBER: SENS (test code = 862336886 12419) URINE CULTURE, NO [id number] 00:00:00 Test Item Value Reference Range Interpretation Comments URINE CULTURE, NO SPECIMEN NUMBER: SENS (test code = 638300859 41790) URINE CULTURE, NO [id number] 00:00:00 Test Item Value Reference Range Interpretation Comments URINE CULTURE, NO SPECIMEN NUMBER: SENS (test code = 848750170 16985) URINE CULTURE, NO [id number] 00:00:00 Test Item Value Reference Range Interpretation Comments URINE CULTURE, NO SPECIMEN NUMBER: SENS (test code = 217451572 57305) URINE CULTURE, NO [id number] 00:00:00 Test Item Value Reference Range Interpretation Comments URINE CULTURE, NO SPECIMEN NUMBER: SENS (test code = 093132149 87885) URINE CULTURE, NO [id number] 00:00:00 Test Item Value Reference Range Interpretation Comments URINE CULTURE, NO SPECIMEN NUMBER: SENS (test code = 504093625 00188) URINE CULTURE, NO [id number] 00:00:00 Test Item Value Reference Range Interpretation Comments URINE CULTURE, NO SPECIMEN NUMBER: SENS (test code = 063356695 62249) URINE CULTURE, NO [id number] 00:00:00 Test Item Value Reference Range Interpretation Comments URINE CULTURE, NO SPECIMEN NUMBER: SENS (test code = 383478174 08186) URINE CULTURE, NO [id number] 00:00:00 Test Item Value Reference Range Interpretation Comments URINE CULTURE, NO SPECIMEN NUMBER: SENS (test code = 126093684 12145) URINE CULTURE, NO [id number] 00:00:00 Test Item Value Reference Range Interpretation Comments URINE CULTURE, NO SPECIMEN NUMBER: SENS (test code = 729093573 23663) URINE CULTURE, NO [id number] 00:00:00 Test Item Value Reference Range Interpretation Comments URINE CULTURE, NO SPECIMEN NUMBER: SENS (test code = 764773642 68517) URINE CULTURE, NO [id number] 00:00:00 Test Item Value Reference Range Interpretation Comments URINE CULTURE, NO SPECIMEN NUMBER: SENS (test code = 248890022 72716) URINE CULTURE, NO [id number] 00:00:00 Test Item Value Reference Range Interpretation Comments URINE CULTURE, NO SPECIMEN NUMBER: SENS (test code = 687715785 26707) URINE CULTURE, NO [id number] 00:00:00 Test Item Value Reference Range Interpretation Comments URINE CULTURE, NO SPECIMEN NUMBER: SENS (test code = 381801916 88957) CBC W/AUTO DIFF WITH [id number] 07:54:02 Test Item Value Reference Range Interpretation [...] RBCS 0.00 K/UL 0.00-0.11 (test code = 21337) COMPREHENSIVE METABOLIC [id number] 05:34:02 Test Item Value Reference Range Interpretation Comments GLUCOSE (test code = 108 MG/DL 70-99 H 2216) BUN (test code = 17 MG/DL 6-20 2207) CREATININE (test 0.84 MG/DL 0.60-1.30 code = 2213) eGFR (2020 CKD-EPI) 88 >60 (test code = 86188) ML/MIN/1.73 CALC BUN/CREAT (test 20 RATIO 6-28 code = 223) SODIUM (test code = 141 MEQ/L 965-439 7244) POTASSIUM (test code 4.0 MEQ/L 3.5-5.4 = [...] message] (test code = 2206) The syste [employer] which generated this result transmitted ref erence [...] [facility] [address] [place] [address] [facility]: NOAH DICKENS M.D. CLIA NUMBER [id number] [facility] ACCREDITATION N O. [id number] CBC W/AUTO [id number] 00:00:00 Test Item Value Reference Range Interpretation [...] NUCLEATED RBCS (test code = 0.00 K/UL 80412) CBC W/AUTO [id number] 00:00:00 Test Item Value Reference Range Interpretation [...] NUCLEATED RBCS (test code = 0.00 K/UL 75385) CBC W/AUTO [id number] 00:00:00 Test Item Value Reference Range Interpretation [...] NUCLEATED RBCS (test code = 0.00 K/UL 10008) COMPREHENSIVE METABOLIC [id number] 00:00:00 Test Item Value Reference Range Interpretation Comments GLUCOSE (test code = 2217) 108 MG/DL BUN (test code = 2208) 17 MG/DL CREATININE (test code = 2214) 0.84 MG/DL eGFR (2020 CKD-EPI) (test code 88 ML/MIN/1.73 = 32393) CALC BUN/CREAT (test code = 20 RATIO [...] code = 2219) 28 U/L COMPREHENSIVE METABOLIC [id number] 00:00:00 Test Item Value Reference Range Interpretation Comments GLUCOSE (test code = 2217) 108 MG/DL BUN (test code = 2208) 17 MG/DL CREATININE (test code = 2214) 0.84 MG/DL eGFR (2020 CKD-EPI) (test code 88 ML/MIN/1.73 = 35608) CALC BUN/CREAT (test code = 20 RATIO [...] code = 2219) 28 U/L CBC W/AUTO [id number] 00:00:00 Test Item Value Reference Range Interpretation [...] NUCLEATED RBCS (test code = 0.00 K/UL 23583) CBC W/AUTO [id number] 00:00:00 Test Item Value Reference Range Interpretation [...] NUCLEATED RBCS (test code = 0.00 K/UL 84318) CBC W/AUTO [id number] 00:00:00 Test Item Value Reference Range Interpretation [...] NUCLEATED RBCS (test code = 0.00 K/UL 61025) COMPREHENSIVE METABOLIC [id number] 00:00:00 Test Item Value Reference Range Interpretation Comments GLUCOSE (test code = 2217) 108 MG/DL BUN (test code = 2208) 17 MG/DL CREATININE (test code = 2214) 0.84 MG/DL eGFR (2020 CKD-EPI) (test code 88 ML/MIN/1.73 = 63346) CALC BUN/CREAT (test code = 20 RATIO [...] code = 2219) 28 U/L COMPREHENSIVE METABOLIC [id number] 00:00:00 Test Item Value Reference Range Interpretation Comments GLUCOSE (test code = 2217) 108 MG/DL BUN (test code = 2208) 17 MG/DL CREATININE (test code = 2214) 0.84 MG/DL eGFR (2020 CKD-EPI) (test code 88 ML/MIN/1.73 = 37711) CALC BUN/CREAT (test code = 20 RATIO [...] code = 2219) 28 U/L CBC W/AUTO [id number] 00:00:00 Test Item Value Reference Range Interpretation [...] NUCLEATED RBCS (test code = 0.00 K/UL 99447) CBC W/AUTO [id number] 00:00:00 Test Item Value Reference Range Interpretation [...] NUCLEATED RBCS (test code = 0.00 K/UL 52490) CBC W/AUTO [id number] 00:00:00 Test Item Value Reference Range Interpretation [...] NUCLEATED RBCS (test code = 0.00 K/UL 28640) COMPREHENSIVE METABOLIC [id number] 00:00:00 Test Item Value Reference Range Interpretation Comments GLUCOSE (test code = 2217) 108 MG/DL BUN (test code = 2208) 17 MG/DL CREATININE (test code = 2214) 0.84 MG/DL eGFR (2020 CKD-EPI) (test code 88 ML/MIN/1.73 = 27703) CALC BUN/CREAT (test code = 20 RATIO [...] code = 2219) 28 U/L COMPREHENSIVE METABOLIC [id number] 00:00:00 Test Item Value Reference Range Interpretation Comments GLUCOSE (test code = 2217) 108 MG/DL BUN (test code = 2208) 17 MG/DL CREATININE (test code = 2214) 0.84 MG/DL eGFR (2020 CKD-EPI) (test code 88 ML/MIN/1.73 = 80965) CALC BUN/CREAT (test code = 20 RATIO [...] code = 2219) 28 U/L CBC W/AUTO [id number] 00:00:00 Test Item Value Reference Range Interpretation [...] NUCLEATED RBCS (test code = 0.00 K/UL 77528) CBC W/AUTO [id number] 00:00:00 Test Item Value Reference Range Interpretation [...] NUCLEATED RBCS (test code = 0.00 K/UL 22608) CBC W/AUTO [id number] 00:00:00 Test Item Value Reference Range Interpretation [...] NUCLEATED RBCS (test code = 0.00 K/UL 94790) COMPREHENSIVE METABOLIC [id number] 00:00:00 Test Item Value Reference Range Interpretation Comments GLUCOSE (test code = 2217) 108 MG/DL BUN (test code = 2208) 17 MG/DL CREATININE (test code = 2214) 0.84 MG/DL eGFR (2020 CKD-EPI) (test code 88 ML/MIN/1.73 = 64998) CALC BUN/CREAT (test code = 20 RATIO [...] code = 2219) 28 U/L COMPREHENSIVE METABOLIC [id number] 00:00:00 Test Item Value Reference Range Interpretation Comments GLUCOSE (test code = 2217) 108 MG/DL BUN (test code = 2208) 17 MG/DL CREATININE (test code = 2214) 0.84 MG/DL eGFR (2020 CKD-EPI) (test code 88 ML/MIN/1.73 = 65459) CALC BUN/CREAT (test code = 20 RATIO [...] code = 2219) 28 U/L CBC W/AUTO [id number] 00:00:00 Test Item Value Reference Range Interpretation [...] NUCLEATED RBCS (test code = 0.00 K/UL 32529) CBC W/AUTO [id number] 00:00:00 Test Item Value Reference Range Interpretation [...] NUCLEATED RBCS (test code = 0.00 K/UL 94863) CBC W/AUTO [id number] 00:00:00 Test Item Value Reference Range Interpretation [...] NUCLEATED RBCS (test code = 0.00 K/UL 88974) COMPREHENSIVE METABOLIC [id number] 00:00:00 Test Item Value Reference Range Interpretation Comments GLUCOSE (test code = 2217) 108 MG/DL BUN (test code = 2208) 17 MG/DL CREATININE (test code = 2214) 0.84 MG/DL eGFR (2020 CKD-EPI) (test code 88 ML/MIN/1.73 = 05464) CALC BUN/CREAT (test code = 20 RATIO [...] code = 2219) 28 U/L COMPREHENSIVE METABOLIC [id number] 00:00:00 Test Item Value Reference Range Interpretation Comments GLUCOSE (test code = 2217) 108 MG/DL BUN (test code = 2208) 17 MG/DL CREATININE (test code = 2214) 0.84 MG/DL eGFR (2020 CKD-EPI) (test code 88 ML/MIN/1.73 = 06262) CALC BUN/CREAT (test code = 20 RATIO [...] code = 2219) 28 U/L CBC W/AUTO [id number] 00:00:00 Test Item Value Reference Range Interpretation [...] NUCLEATED RBCS (test code = 0.00 K/UL 31538) CBC W/AUTO [id number] 00:00:00 Test Item Value Reference Range Interpretation [...] NUCLEATED RBCS (test code = 0.00 K/UL 55739) CBC W/AUTO [id number] 00:00:00 Test Item Value Reference Range Interpretation [...] NUCLEATED RBCS (test code = 0.00 K/UL 88720) COMPREHENSIVE METABOLIC [id number] 00:00:00 Test Item Value Reference Range Interpretation Comments GLUCOSE (test code = 2217) 108 MG/DL BUN (test code = 2208) 17 MG/DL CREATININE (test code = 2214) 0.84 MG/DL eGFR (2020 CKD-EPI) (test code 88 ML/MIN/1.73 = 15103) CALC BUN/CREAT (test code = 20 RATIO [...] code = 2219) 28 U/L COMPREHENSIVE METABOLIC [id number] 00:00:00 Test Item Value Reference Range Interpretation Comments GLUCOSE (test code = 2217) 108 MG/DL BUN (test code = 2208) 17 MG/DL CREATININE (test code = 2214) 0.84 MG/DL eGFR (2020 CKD-EPI) (test code 88 ML/MIN/1.73 = 80314) CALC BUN/CREAT (test code = 20 RATIO [...] code = 2219) 28 U/L CBC W/AUTO [id number] 00:00:00 Test Item Value Reference Range Interpretation [...] NUCLEATED RBCS (test code = 0.00 K/UL 55503) CBC W/AUTO [id number] 00:00:00 Test Item Value Reference Range Interpretation [...] NUCLEATED RBCS (test code = 0.00 K/UL 36979) CBC W/AUTO [id number] 00:00:00 Test Item Value Reference Range Interpretation [...] NUCLEATED RBCS (test code = 0.00 K/UL 45646) COMPREHENSIVE METABOLIC [id number] 00:00:00 Test Item Value Reference Range Interpretation Comments GLUCOSE (test code = 2217) 108 MG/DL BUN (test code = 2208) 17 MG/DL CREATININE (test code = 2214) 0.84 MG/DL eGFR (2020 CKD-EPI) (test code 88 ML/MIN/1.73 = 41207) CALC BUN/CREAT (test code = 20 RATIO [...] code = 2219) 28 U/L COMPREHENSIVE METABOLIC [id number] 00:00:00 Test Item Value Reference Range Interpretation Comments GLUCOSE (test code = 2217) 108 MG/DL BUN (test code = 2208) 17 MG/DL CREATININE (test code = 2214) 0.84 MG/DL eGFR (2020 CKD-EPI) (test code 88 ML/MIN/1.73 = 80380) CALC BUN/CREAT (test code = 20 RATIO [...] code = 2219) 28 U/L CBC W/AUTO [id number] 00:00:00 Test Item Value Reference Range Interpretation [...] NUCLEATED RBCS (test code = 0.00 K/UL 73347) CBC W/AUTO [id number] 00:00:00 Test Item Value Reference Range Interpretation [...] NUCLEATED RBCS (test code = 0.00 K/UL 82845) COMPREHENSIVE METABOLIC [id number] 00:00:00 Test Item Value Reference Range Interpretation Comments GLUCOSE (test code = 2217) 108 MG/DL BUN (test code = 2208) 17 MG/DL CREATININE (test code = 2214) 0.84 MG/DL eGFR (2020 CKD-EPI) (test code 88 ML/MIN/1.73 = 77271) CALC BUN/CREAT (test code = 20 RATIO [...] code = 2219) 28 U/L CBC W/AUTO [id number] 00:00:00 Test Item Value Reference Range Interpretation [...] NUCLEATED RBCS (test code = 0.00 K/UL 37974) CBC W/AUTO [id number] 00:00:00 Test Item Value Reference Range Interpretation [...] NUCLEATED RBCS (test code = 0.00 K/UL 65123) CBC W/AUTO [id number] 00:00:00 Test Item Value Reference Range Interpretation [...] NUCLEATED RBCS (test code = 0.00 K/UL 39959) COMPREHENSIVE METABOLIC [id number] 00:00:00 Test Item Value Reference Range Interpretation Comments GLUCOSE (test code = 2217) 108 MG/DL BUN (test code = 2208) 17 MG/DL CREATININE (test code = 2214) 0.84 MG/DL eGFR (2020 CKD-EPI) (test code 88 ML/MIN/1.73 = 33667) CALC BUN/CREAT (test code = 20 RATIO [...] code = 2219) 28 U/L COMPREHENSIVE METABOLIC [id number] 00:00:00 Test Item Value Reference Range Interpretation Comments GLUCOSE (test code = 2217) 108 MG/DL BUN (test code = 2208) 17 MG/DL CREATININE (test code = 2214) 0.84 MG/DL eGFR (2020 CKD-EPI) (test code 88 ML/MIN/1.73 = 45910) CALC BUN/CREAT (test code = 20 RATIO [...] code = 2219) 28 U/L CBC W/AUTO [id number] 00:00:00 Test Item Value Reference Range Interpretation [...] NUCLEATED RBCS (test code = 0.00 K/UL 99188) CBC W/AUTO [id number] 00:00:00 Test Item Value Reference Range Interpretation [...] NUCLEATED RBCS (test code = 0.00 K/UL 62037) CBC W/AUTO [id number] 00:00:00 Test Item Value Reference Range Interpretation [...] NUCLEATED RBCS (test code = 0.00 K/UL 75115) COMPREHENSIVE METABOLIC [id number] 00:00:00 Test Item Value Reference Range Interpretation Comments GLUCOSE (test code = 2217) 108 MG/DL BUN (test code = 2208) 17 MG/DL CREATININE (test code = 2214) 0.84 MG/DL eGFR (2020 CKD-EPI) (test code 88 ML/MIN/1.73 = 55138) CALC BUN/CREAT (test code = 20 RATIO [...] code = 2219) 28 U/L COMPREHENSIVE METABOLIC [id number] 00:00:00 Test Item Value Reference Range Interpretation Comments GLUCOSE (test code = 2217) 108 MG/DL BUN (test code = 2208) 17 MG/DL CREATININE (test code = 2214) 0.84 MG/DL eGFR (2020 CKD-EPI) (test code 88 ML/MIN/1.73 = 71809) CALC BUN/CREAT (test code = 20 RATIO [...] code = 2219) 28 U/L CBC W/AUTO [id number] 00:00:00 Test Item Value Reference Range Interpretation [...] NUCLEATED RBCS (test code = 0.00 K/UL 85948) CBC W/AUTO [id number] 00:00:00 Test Item Value Reference Range Interpretation [...] NUCLEATED RBCS (test code = 0.00 K/UL 38170) CBC W/AUTO [id number] 00:00:00 Test Item Value Reference Range Interpretation [...] NUCLEATED RBCS (test code = 0.00 K/UL 56723) COMPREHENSIVE METABOLIC [id number] 00:00:00 Test Item Value Reference Range Interpretation Comments GLUCOSE (test code = 2217) 108 MG/DL BUN (test code = 2208) 17 MG/DL CREATININE (test code = 2214) 0.84 MG/DL eGFR (2020 CKD-EPI) (test code 88 ML/MIN/1.73 = 70601) CALC BUN/CREAT (test code = 20 RATIO [...] code = 2219) 28 U/L COMPREHENSIVE METABOLIC [id number] 00:00:00 Test Item Value Reference Range Interpretation Comments GLUCOSE (test code = 2217) 108 MG/DL BUN (test code = 2208) 17 MG/DL CREATININE (test code = 2214) 0.84 MG/DL eGFR (2020 CKD-EPI) (test code 88 ML/MIN/1.73 = 49483) CALC BUN/CREAT (test code = 20 RATIO [...] = 2219) 28 U/L COMP. METABOLIC PANEL ([id number] 15:36:43 Test Item Value Reference Range Interpretation Comments NA (test code = 133 mmol/L 135-145 L 1244943669) K (test code = 4.8 mmol/L 3.5-5.0 5071658764) CL (test code = 96 mmol/L 98-108 L 1358607839) CO2 TOTAL (test code = 21 mmol/L 23-31 L 8154010384) AGAP (test code = 2-16 7850636718) BUN (test code = 30 mg/dL 7-23 H 1896949276) GLUCOSE (test code = 405 mg/dL 70-110 H 9026229302) CREATININE (test code = 0.74 mg/dL 0.50-1.04 8393201877) TOTAL BILI (test code = 0.6 mg/dL 0.1-1.1 2352884637) CALCIUM (test code = 9.7 mg/dL 8.6-10.6 9443967139) T PROTEIN (test code = 7.9 g/dL 6.3-8.2 1064937935) ALBUMIN (test code = 4.9 g/dL 3.5-5.0 0785976665) ALK PHOS (test code = 66 U/L 34-122 0820506385) ALTv (test code = 37 U/L 5-35 H 1742-6) AST(SGOT) (test code = 31 U/L 13-40 7799528382) eGFR (test code = mL/min/1.73m2 4706734923) CALVIN (test code = CALVIN) Association of [...] tests). Lab Interpretation Abnormal (test code = 10316-8) [facility] WITH [id number] 15:26:02 Test Item Value Reference Range Interpretation Comments WBC (test code = See_Comment [Automated 3608-2) message] The sy stem which generated this result transmitted reference range : 4.30 - 11.10 10*3/?L. The reference range was not used to interpret this result as normal/abnormal . RBC (test code = See_Comment [Automated 571-8) message] The sy stem which generated this [...] (test code = 38.2 fL 39.0-49.9 L 41700-6) RDW-CV (test code = 12.9 % 12.0-15.5 788-0) PLT (test code = See_Comment [Automated 777-3) message] The sy stem which generated this result transmitted reference range : 166 - 358 10*3/ ?L. The reference r doretha was not used to interpret this result as normal/abnormal . MPV (test code = 9.8 fL 9.5-12.9 91521-9) NRBC/100 WBC (test See_Comment [Automat ed code = 9219684075) message] The system which generated this result transmitted reference range : 0.0 - 10.0 /100 WBCs. The refer ence range was not u sed to interpret th is result as normal/abnormal . NRBC x10^3 (test code <0.01 See_Comment [Auto mated = 5642841763) message] The s ystem which generated this result transmitted reference range : 10*3/?L. The reference range was not used to interpret this result as normal/abnormal . GRAN MAT (NEUT) % 50.6 % (test code = 770-8) IMM GRAN % (test code 0.80 % = 4402826057) LYMPH % (test code = 37.0 % 736-9) MONO % (test code = 8.5 % 5905-5) EOS % (test code = 2.2 % 713-8) BASO % (test code = 0.9 % 706-2) GRAN MAT x10^3(ANC) 3.86 10*3/uL 1.88-7.09 (test code = 2805872541) IMM GRAN x10^3 (test 0.06 10*3/uL 0.00-0.06 code = 1811873651) LYMPH x10^3 (test code 2.83 10*3/uL 1.32-3.29 = 731-0) MONO x10^3 (test code 0.65 10*3/uL 0.33-0.92 = 742-7) EOS x10^3 (test code = 0.17 10*3/uL 0.03-0.39 711-2) BASO x10^3 (test code 0.07 10*3/uL 0.01-0.07 = 704-7) Lab Interpretation Abnormal (test code = 82347-1) [id number] 15:18:00 Test Item Value Reference Range Interpretation Comments POCT PREG (test code = 1605) negative On board controls acceptable with present C Line (test code = 3574) POCT PREG LOT # (test code = 3575) [id number] POCT PREG TEST DATE (test 09/07/2022 code = 3576) Lab Interpretation (test code = Normal 62485-0) [id number] 08:37:00 Test Item Value Reference Range Interpretation Comments GLUBED (test code = GLUBED) 260 mg/dL 60-125 H [id number] 06:42:00 Test Item Value Reference Range Interpretation Comments GLUBED (test code = GLUBED) 265 mg/dL 60-125 H COVID 19 Asymptomatic IH [id number] 17:24:00 Test Item Value Reference Range Interpretation Comments COVID 19 Asymptomatic IH AG (test NEGATIVE NEGATIVE code = COVNONPUIAG) COMPREHENSIVE METABOLIC [id number] 05:38:33 Test Item Value Reference Range Interpretation Comments GLUCOSE (test code = 411 MG/DL 70-99 H 2216) BUN (test code = 24 MG/DL 6-20 H 2207) CREATININE (test 1.13 MG/DL 0.60-1.30 code = 2214) eGFR (2020 CKD-EPI) 62 ML/MIN/1.73 >60 (test code = 41689) CALC BUN/CREAT (test 21 RATIO 6-28 code = 2235) SODIUM (test code = 136 MEQ/L 062-240 8111) POTASSIUM (test code 5.0 MEQ/L 3.5-5.4 = [...] = 49 U/L 5-40 H 2218) LIPID [id number] 05:38:33 Test Item Value Reference Range Interpretation [...] MOREINFORMATION , SEE CLIENT ANNOUNCE MENT AT [email or web address] CalcLDL-C RISK RATIO LDL/HDL 2.79 RATIO <3.22 UNABLE T O CALCULATE (test code = 2238) UNLESS OT HERWISE INDICATED, ALL TESTING PERFORMED [facility] [employer] [address] [place] [address] [phone] LABORATORY DIRE CTOR: NOAH TODD M.D. CLIA NUMBER [id number] [place] [id number] HEMOGLOBIN [id number] 03:55:33 Test Item Value Reference Range Interpretation Comments HEMOGLOBIN A1c (test 11.9 % 4.2-5.6 H AMERIC AN DIABETES code = 68275) ASSOCIATION IDELINES FOR HGB A1C: PREDIABETES/INC REASED [...] TESTING OR LABORATORY C ONSULTATION. COMPREHENSIVE METABOLIC [id number] 00:00:00 Test Item Value Reference Range Interpretation Comments GLUCOSE (test code = 2217) 411 MG/DL BUN (test code = 2208) 24 MG/DL CREATININE (test code = 2214) 1.13 MG/DL eGFR (2020 CKD-EPI) (test code 62 ML/MIN/1.73 = 09570) CALC BUN/CREAT (test code = 21 RATIO [...] code = 2219) 49 U/L COMPREHENSIVE METABOLIC [id number] 00:00:00 Test Item Value Reference Range Interpretation Comments GLUCOSE (test code = 2217) 411 MG/DL BUN (test code = 2208) 24 MG/DL CREATININE (test code = 2214) 1.13 MG/DL eGFR (2020 CKD-EPI) (test code 62 ML/MIN/1.73 = 23444) CALC BUN/CREAT (test code = 21 RATIO [...] (test code = 2219) 49 U/L HEMOGLOBIN [id number] 00:00:00 Test Item Value Reference Range Interpretation Comments HEMOGLOBIN A1c (test code = 88921) 11.9 % HEMOGLOBIN [id number] 00:00:00 Test Item Value Reference Range Interpretation Comments HEMOGLOBIN A1c (test code = 42178) 11.9 % HEMOGLOBIN [id number] 00:00:00 Test Item Value Reference Range Interpretation Comments HEMOGLOBIN A1c (test code = 55664) 11.9 % LIPID [id number] 00:00:00 Test Item Value Reference Range Interpretation Comments CHOLESTEROL (test code = 2210) 176 MG/DL TRIGLYCERIDES (test code = 2232) 614 MG/DL HDL CHOLESTEROL (test code = 28 MG/DL 0) CALC LDL CHOL (test code = 2237) (NOTE) MG/DL RISK RATIO LDL/HDL (test code = 2.79 RATIO 2238) LIPID [id number] 00:00:00 Test Item Value Reference Range Interpretation Comments CHOLESTEROL (test code = 2210) 176 MG/DL TRIGLYCERIDES (test code = 2232) 614 MG/DL HDL CHOLESTEROL (test code = 28 MG/DL 2220) CALC LDL CHOL (test code = 2237) (NOTE) MG/DL RISK RATIO LDL/HDL (test code = 2.79 RATIO 2238) COMPREHENSIVE METABOLIC [id number] 00:00:00 Test Item Value Reference Range Interpretation Comments GLUCOSE (test code = 2217) 411 MG/DL BUN (test code = 2208) 24 MG/DL CREATININE (test code = 2214) 1.13 MG/DL eGFR (2020 CKD-EPI) (test code 62 ML/MIN/1.73 = 16067) CALC BUN/CREAT (test code = 21 RATIO [...] code = 2219) 49 U/L COMPREHENSIVE METABOLIC [id number] 00:00:00 Test Item Value Reference Range Interpretation Comments GLUCOSE (test code = 2217) 411 MG/DL BUN (test code = 8) 24 MG/DL CREATININE (test code = 2214) 1.13 MG/DL eGFR (2020 CKD-EPI) (test code 62 ML/MIN/1.73 = 14914) CALC BUN/CREAT (test code = 21 RATIO [...] (test code = 2219) 49 U/L HEMOGLOBIN [id number] 00:00:00 Test Item Value Reference Range Interpretation Comments HEMOGLOBIN A1c (test code = 58225) 11.9 % HEMOGLOBIN [id number] 00:00:00 Test Item Value Reference Range Interpretation Comments HEMOGLOBIN A1c (test code = 71215) 11.9 % HEMOGLOBIN [id number] 00:00:00 Test Item Value Reference Range Interpretation Comments HEMOGLOBIN A1c (test code = 85056) 11.9 % LIPID [id number] 00:00:00 Test Item Value Reference Range Interpretation Comments CHOLESTEROL (test code = 2210) 176 MG/DL TRIGLYCERIDES (test code = 2232) 614 MG/DL HDL CHOLESTEROL (test code = 28 MG/DL 2220) CALC LDL CHOL (test code = 2237) (NOTE) MG/DL RISK RATIO LDL/HDL (test code = 2.79 RATIO 2238) LIPID [id number] 00:00:00 Test Item Value Reference Range Interpretation Comments CHOLESTEROL (test code = 2210) 176 MG/DL TRIGLYCERIDES (test code = 2232) 614 MG/DL HDL CHOLESTEROL (test code = 28 MG/DL 2220) CALC LDL CHOL (test code = 2237) (NOTE) MG/DL RISK RATIO LDL/HDL (test code = 2.79 RATIO 2238) COMPREHENSIVE METABOLIC [id number] 00:00:00 Test Item Value Reference Range Interpretation Comments GLUCOSE (test code = 2217) 411 MG/DL BUN (test code = 2208) 24 MG/DL CREATININE (test code = 2214) 1.13 MG/DL eGFR (2020 CKD-EPI) (test code 62 ML/MIN/1.73 = 79809) CALC BUN/CREAT (test code = 21 RATIO [...] code = 2219) 49 U/L COMPREHENSIVE METABOLIC [id number] 00:00:00 Test Item Value Reference Range Interpretation Comments GLUCOSE (test code = 2217) 411 MG/DL BUN (test code = 2208) 24 MG/DL CREATININE (test code = 2214) 1.13 MG/DL eGFR (2020 CKD-EPI) (test code 62 ML/MIN/1.73 = 58939) CALC BUN/CREAT (test code = 21 RATIO [...] (test code = 2219) 49 U/L HEMOGLOBIN [id number] 00:00:00 Test Item Value Reference Range Interpretation Comments HEMOGLOBIN A1c (test code = 25322) 11.9 % HEMOGLOBIN [id number] 00:00:00 Test Item Value Reference Range Interpretation Comments HEMOGLOBIN A1c (test code = 63157) 11.9 % HEMOGLOBIN [id number] 00:00:00 Test Item Value Reference Range Interpretation Comments HEMOGLOBIN A1c (test code = 62846) 11.9 % LIPID [id number] 00:00:00 Test Item Value Reference Range Interpretation Comments CHOLESTEROL (test code = 2210) 176 MG/DL TRIGLYCERIDES (test code = 2232) 614 MG/DL HDL CHOLESTEROL (test code = 28 MG/DL 2220) CALC LDL CHOL (test code = 2237) (NOTE) MG/DL RISK RATIO LDL/HDL (test code = 2.79 RATIO 2238) LIPID [id number] 00:00:00 Test Item Value Reference Range Interpretation Comments CHOLESTEROL (test code = 2210) 176 MG/DL TRIGLYCERIDES (test code = 2232) 614 MG/DL HDL CHOLESTEROL (test code = 28 MG/DL 2220) CALC LDL CHOL (test code = 2237) (NOTE) MG/DL RISK RATIO LDL/HDL (test code = 2.79 RATIO 2238) COMPREHENSIVE METABOLIC [id number] 00:00:00 Test Item Value Reference Range Interpretation Comments GLUCOSE (test code = 2217) 411 MG/DL BUN (test code = 2208) 24 MG/DL CREATININE (test code = 2214) 1.13 MG/DL eGFR (2020 CKD-EPI) (test code 62 ML/MIN/1.73 = 26518) CALC BUN/CREAT (test code = 21 RATIO [...] code = 2219) 49 U/L COMPREHENSIVE METABOLIC [id number] 00:00:00 Test Item Value Reference Range Interpretation Comments GLUCOSE (test code = 2217) 411 MG/DL BUN (test code = 2208) 24 MG/DL CREATININE (test code = 2214) 1.13 MG/DL eGFR (2020 CKD-EPI) (test code 62 ML/MIN/1.73 = 38282) CALC BUN/CREAT (test code = 21 RATIO [...] (test code = 2219) 49 U/L HEMOGLOBIN [id number] 00:00:00 Test Item Value Reference Range Interpretation Comments HEMOGLOBIN A1c (test code = 15324) 11.9 % HEMOGLOBIN [id number] 00:00:00 Test Item Value Reference Range Interpretation Comments HEMOGLOBIN A1c (test code = 59754) 11.9 % HEMOGLOBIN [id number] 00:00:00 Test Item Value Reference Range Interpretation Comments HEMOGLOBIN A1c (test code = 75622) 11.9 % LIPID [id number] 00:00:00 Test Item Value Reference Range Interpretation Comments CHOLESTEROL (test code = 2210) 176 MG/DL TRIGLYCERIDES (test code = 2232) 614 MG/DL HDL CHOLESTEROL (test code = 28 MG/DL 0) CALC LDL CHOL (test code = 2237) (NOTE) MG/DL RISK RATIO LDL/HDL (test code = 2.79 RATIO 2238) LIPID [id number] 00:00:00 Test Item Value Reference Range Interpretation Comments CHOLESTEROL (test code = 2210) 176 MG/DL TRIGLYCERIDES (test code = 2232) 614 MG/DL HDL CHOLESTEROL (test code = 28 MG/DL 2220) CALC LDL CHOL (test code = 2237) (NOTE) MG/DL RISK RATIO LDL/HDL (test code = 2.79 RATIO 2238) COMPREHENSIVE METABOLIC [id number] 00:00:00 Test Item Value Reference Range Interpretation Comments GLUCOSE (test code = 2217) 411 MG/DL BUN (test code = 2208) 24 MG/DL CREATININE (test code = 2214) 1.13 MG/DL eGFR (2020 CKD-EPI) (test code 62 ML/MIN/1.73 = 96617) CALC BUN/CREAT (test code = 21 RATIO [...] code = 2219) 49 U/L COMPREHENSIVE METABOLIC [id number] 00:00:00 Test Item Value Reference Range Interpretation Comments GLUCOSE (test code = 2217) 411 MG/DL BUN (test code = 2208) 24 MG/DL CREATININE (test code = 2214) 1.13 MG/DL eGFR (2020 CKD-EPI) (test code 62 ML/MIN/1.73 = 30284) CALC BUN/CREAT (test code = 21 RATIO [...] (test code = 2219) 49 U/L HEMOGLOBIN [id number] 00:00:00 Test Item Value Reference Range Interpretation Comments HEMOGLOBIN A1c (test code = 72739) 11.9 % HEMOGLOBIN [id number] 00:00:00 Test Item Value Reference Range Interpretation Comments HEMOGLOBIN A1c (test code = 77408) 11.9 % HEMOGLOBIN [id number] 00:00:00 Test Item Value Reference Range Interpretation Comments HEMOGLOBIN A1c (test code = 65574) 11.9 % LIPID [id number] 00:00:00 Test Item Value Reference Range Interpretation Comments CHOLESTEROL (test code = 2210) 176 MG/DL TRIGLYCERIDES (test code = 2232) 614 MG/DL HDL CHOLESTEROL (test code = 28 MG/DL 2220) CALC LDL CHOL (test code = 2237) (NOTE) MG/DL RISK RATIO LDL/HDL (test code = 2.79 RATIO 2238) LIPID [id number] 00:00:00 Test Item Value Reference Range Interpretation Comments CHOLESTEROL (test code = 2210) 176 MG/DL TRIGLYCERIDES (test code = 2232) 614 MG/DL HDL CHOLESTEROL (test code = 28 MG/DL 2220) CALC LDL CHOL (test code = 2237) (NOTE) MG/DL RISK RATIO LDL/HDL (test code = 2.79 RATIO 2238) COMPREHENSIVE METABOLIC [id number] 00:00:00 Test Item Value Reference Range Interpretation Comments GLUCOSE (test code = 2217) 411 MG/DL BUN (test code = 2208) 24 MG/DL CREATININE (test code = 2214) 1.13 MG/DL eGFR (2020 CKD-EPI) (test code 62 ML/MIN/1.73 = 84967) CALC BUN/CREAT (test code = 21 RATIO [...] code = 2219) 49 U/L COMPREHENSIVE METABOLIC [id number] 00:00:00 Test Item Value Reference Range Interpretation Comments GLUCOSE (test code = 2217) 411 MG/DL BUN (test code = 2208) 24 MG/DL CREATININE (test code = 2214) 1.13 MG/DL eGFR (2020 CKD-EPI) (test code 62 ML/MIN/1.73 = 24537) CALC BUN/CREAT (test code = 21 RATIO [...] (test code = 2219) 49 U/L HEMOGLOBIN [id number] 00:00:00 Test Item Value Reference Range Interpretation Comments HEMOGLOBIN A1c (test code = 70979) 11.9 % HEMOGLOBIN [id number] 00:00:00 Test Item Value Reference Range Interpretation Comments HEMOGLOBIN A1c (test code = 71392) 11.9 % HEMOGLOBIN [id number] 00:00:00 Test Item Value Reference Range Interpretation Comments HEMOGLOBIN A1c (test code = 34877) 11.9 % LIPID [id number] 00:00:00 Test Item Value Reference Range Interpretation Comments CHOLESTEROL (test code = 2210) 176 MG/DL TRIGLYCERIDES (test code = 2232) 614 MG/DL HDL CHOLESTEROL (test code = 28 MG/DL 2219) CALC LDL CHOL (test code = 2237) (NOTE) MG/DL RISK RATIO LDL/HDL (test code = 2.79 RATIO 2238) LIPID [id number] 00:00:00 Test Item Value Reference Range Interpretation Comments CHOLESTEROL (test code = 2210) 176 MG/DL TRIGLYCERIDES (test code = 2232) 614 MG/DL HDL CHOLESTEROL (test code = 28 MG/DL 2220) CALC LDL CHOL (test code = 2237) (NOTE) MG/DL RISK RATIO LDL/HDL (test code = 2.79 RATIO 2238) COMPREHENSIVE METABOLIC [id number] 00:00:00 Test Item Value Reference Range Interpretation Comments GLUCOSE (test code = 2217) 411 MG/DL BUN (test code = 2208) 24 MG/DL CREATININE (test code = 2214) 1.13 MG/DL eGFR (2020 CKD-EPI) (test code 62 ML/MIN/1.73 = 86707) CALC BUN/CREAT (test code = 21 RATIO [...] code = 2219) 49 U/L COMPREHENSIVE METABOLIC [id number] 00:00:00 Test Item Value Reference Range Interpretation Comments GLUCOSE (test code = 2217) 411 MG/DL BUN (test code = 2208) 24 MG/DL CREATININE (test code = 2214) 1.13 MG/DL eGFR (2020 CKD-EPI) (test code 62 ML/MIN/1.73 = 31177) CALC BUN/CREAT (test code = 21 RATIO [...] (test code = 2219) 49 U/L HEMOGLOBIN [id number] 00:00:00 Test Item Value Reference Range Interpretation Comments HEMOGLOBIN A1c (test code = 83625) 11.9 % HEMOGLOBIN [id number] 00:00:00 Test Item Value Reference Range Interpretation Comments HEMOGLOBIN A1c (test code = 94842) 11.9 % HEMOGLOBIN [id number] 00:00:00 Test Item Value Reference Range Interpretation Comments HEMOGLOBIN A1c (test code = 23573) 11.9 % LIPID [id number] 00:00:00 Test Item Value Reference Range Interpretation Comments CHOLESTEROL (test code = 2210) 176 MG/DL TRIGLYCERIDES (test code = 2232) 614 MG/DL HDL CHOLESTEROL (test code = 28 MG/DL 2220) CALC LDL CHOL (test code = 2237) (NOTE) MG/DL RISK RATIO LDL/HDL (test code = 2.79 RATIO 2238) LIPID [id number] 00:00:00 Test Item Value Reference Range Interpretation Comments CHOLESTEROL (test code = 2210) 176 MG/DL TRIGLYCERIDES (test code = 2232) 614 MG/DL HDL CHOLESTEROL (test code = 28 MG/DL 2220) CALC LDL CHOL (test code = 2237) (NOTE) MG/DL RISK RATIO LDL/HDL (test code = 2.79 RATIO 2238) COMPREHENSIVE METABOLIC [id number] 00:00:00 Test Item Value Reference Range Interpretation Comments GLUCOSE (test code = 2217) 411 MG/DL BUN (test code = 2208) 24 MG/DL CREATININE (test code = 2214) 1.13 MG/DL eGFR (2020 CKD-EPI) (test code 62 ML/MIN/1.73 = 43285) CALC BUN/CREAT (test code = 21 RATIO [...] (test code = 2219) 49 U/L HEMOGLOBIN [id number] 00:00:00 Test Item Value Reference Range Interpretation Comments HEMOGLOBIN A1c (test code = 72054) 11.9 % HEMOGLOBIN [id number] 00:00:00 Test Item Value Reference Range Interpretation Comments HEMOGLOBIN A1c (test code = 90149) 11.9 % LIPID [id number] 00:00:00 Test Item Value Reference Range Interpretation Comments CHOLESTEROL (test code = 2210) 176 MG/DL TRIGLYCERIDES (test code = 2232) 614 MG/DL HDL CHOLESTEROL (test code = 28 MG/DL 2219) CALC LDL CHOL (test code = 2237) (NOTE) MG/DL RISK RATIO LDL/HDL (test code = 2.79 RATIO 2238) COMPREHENSIVE METABOLIC [id number] 00:00:00 Test Item Value Reference Range Interpretation Comments GLUCOSE (test code = 2217) 411 MG/DL BUN (test code = 2208) 24 MG/DL CREATININE (test code = 2214) 1.13 MG/DL eGFR (2020 CKD-EPI) (test code 62 ML/MIN/1.73 = 37625) CALC BUN/CREAT (test code = 21 RATIO [...] code = 2219) 49 U/L COMPREHENSIVE METABOLIC [id number] 00:00:00 Test Item Value Reference Range Interpretation Comments GLUCOSE (test code = 2217) 411 MG/DL BUN (test code = 2208) 24 MG/DL CREATININE (test code = 2214) 1.13 MG/DL eGFR (2020 CKD-EPI) (test code 62 ML/MIN/1.73 = 40167) CALC BUN/CREAT (test code = 21 RATIO [...] (test code = 2219) 49 U/L HEMOGLOBIN [id number] 00:00:00 Test Item Value Reference Range Interpretation Comments HEMOGLOBIN A1c (test code = 23687) 11.9 % HEMOGLOBIN [id number] 00:00:00 Test Item Value Reference Range Interpretation Comments HEMOGLOBIN A1c (test code = 48600) 11.9 % HEMOGLOBIN [id number] 00:00:00 Test Item Value Reference Range Interpretation Comments HEMOGLOBIN A1c (test code = 61710) 11.9 % LIPID [id number] 00:00:00 Test Item Value Reference Range Interpretation Comments CHOLESTEROL (test code = 2210) 176 MG/DL TRIGLYCERIDES (test code = 2232) 614 MG/DL HDL CHOLESTEROL (test code = 28 MG/DL 2220) CALC LDL CHOL (test code = 2237) (NOTE) MG/DL RISK RATIO LDL/HDL (test code = 2.79 RATIO 2238) LIPID [id number] 00:00:00 Test Item Value Reference Range Interpretation Comments CHOLESTEROL (test code = 2210) 176 MG/DL TRIGLYCERIDES (test code = 2232) 614 MG/DL HDL CHOLESTEROL (test code = 28 MG/DL 2220) CALC LDL CHOL (test code = 2237) (NOTE) MG/DL RISK RATIO LDL/HDL (test code = 2.79 RATIO 2238) COMPREHENSIVE METABOLIC [id number] 00:00:00 Test Item Value Reference Range Interpretation Comments GLUCOSE (test code = 2217) 411 MG/DL BUN (test code = 2208) 24 MG/DL CREATININE (test code = 2214) 1.13 MG/DL eGFR (2020 CKD-EPI) (test code 62 ML/MIN/1.73 = 23543) CALC BUN/CREAT (test code = 21 RATIO [...] code = 2219) 49 U/L COMPREHENSIVE METABOLIC [id number] 00:00:00 Test Item Value Reference Range Interpretation Comments GLUCOSE (test code = 2217) 411 MG/DL BUN (test code = 2208) 24 MG/DL CREATININE (test code = 2214) 1.13 MG/DL eGFR (2020 CKD-EPI) (test code 62 ML/MIN/1.73 = 65207) CALC BUN/CREAT (test code = 21 RATIO [...] (test code = 2219) 49 U/L HEMOGLOBIN [id number] 00:00:00 Test Item Value Reference Range Interpretation Comments HEMOGLOBIN A1c (test code = 01641) 11.9 % HEMOGLOBIN [id number] 00:00:00 Test Item Value Reference Range Interpretation Comments HEMOGLOBIN A1c (test code = 33208) 11.9 % HEMOGLOBIN [id number] 00:00:00 Test Item Value Reference Range Interpretation Comments HEMOGLOBIN A1c (test code = 70333) 11.9 % LIPID [id number] 00:00:00 Test Item Value Reference Range Interpretation Comments CHOLESTEROL (test code = 2210) 176 MG/DL TRIGLYCERIDES (test code = 2232) 614 MG/DL HDL CHOLESTEROL (test code = 28 MG/DL 2219) CALC LDL CHOL (test code = 2237) (NOTE) MG/DL RISK RATIO LDL/HDL (test code = 2.79 RATIO 8) LIPID [id number] 00:00:00 Test Item Value Reference Range Interpretation Comments CHOLESTEROL (test code = 2210) 176 MG/DL TRIGLYCERIDES (test code = 2232) 614 MG/DL HDL CHOLESTEROL (test code = 28 MG/DL 0) CALC LDL CHOL (test code = 2237) (NOTE) MG/DL RISK RATIO LDL/HDL (test code = 2.79 RATIO 2238) COMPREHENSIVE METABOLIC [id number] 00:00:00 Test Item Value Reference Range Interpretation Comments GLUCOSE (test code = 2217) 411 MG/DL BUN (test code = 2208) 24 MG/DL CREATININE (test code = 2214) 1.13 MG/DL eGFR (2020 CKD-EPI) (test code 62 ML/MIN/1.73 = 59027) CALC BUN/CREAT (test code = 21 RATIO [...] code = 2219) 49 U/L COMPREHENSIVE METABOLIC [id number] 00:00:00 Test Item Value Reference Range Interpretation Comments GLUCOSE (test code = 2217) 411 MG/DL BUN (test code = 2208) 24 MG/DL CREATININE (test code = 2214) 1.13 MG/DL eGFR (2020 CKD-EPI) (test code 62 ML/MIN/1.73 = 24294) CALC BUN/CREAT (test code = 21 RATIO [...] (test code = 2219) 49 U/L HEMOGLOBIN [id number] 00:00:00 Test Item Value Reference Range Interpretation Comments HEMOGLOBIN A1c (test code = 47146) 11.9 % HEMOGLOBIN [id number] 00:00:00 Test Item Value Reference Range Interpretation Comments HEMOGLOBIN A1c (test code = 15966) 11.9 % HEMOGLOBIN [id number] 00:00:00 Test Item Value Reference Range Interpretation Comments HEMOGLOBIN A1c (test code = 90651) 11.9 % LIPID [id number] 00:00:00 Test Item Value Reference Range Interpretation Comments CHOLESTEROL (test code = 2210) 176 MG/DL TRIGLYCERIDES (test code = 2232) 614 MG/DL HDL CHOLESTEROL (test code = 28 MG/DL 2220) CALC LDL CHOL (test code = 2237) (NOTE) MG/DL RISK RATIO LDL/HDL (test code = 2.79 RATIO 2238) LIPID [id number] 00:00:00 Test Item Value Reference Range Interpretation Comments CHOLESTEROL (test code = 2210) 176 MG/DL TRIGLYCERIDES (test code = 2232) 614 MG/DL HDL CHOLESTEROL (test code = 28 MG/DL 2220) CALC LDL CHOL (test code = 2237) (NOTE) MG/DL RISK RATIO LDL/HDL (test code = 2.79 RATIO 2238) CREATINE [id number] 13:35:13 Test Item Value Reference Range Interpretation Comments CK (test code = 4878551984) 71 U/L 33-194 Lab Interpretation (test code = Normal 82037-3) [facility] GLUCOSE (AUTOMATED)2021-06-18 13:07:35 Test Item Value Reference Range Interpretation Comments POCT GLU (test code = 7841710052) 351 mg/dL 70-110 H Lab Interpretation (test code = Abnormal 24163-3) [facility] GLUCOSE(AGE >30DAYS)2021-06-18 13:04:00 Test Item Value Reference Range Interpretation Comments POCT Glu (age>30days) (test code = 351 mg/dL 70-110 A 3342) Lab Interpretation (test code = Abnormal 35010-4) [facility]. Metabolic Panel (41015)2021-06-18 11:14:20 Test Item Value Reference Range Interpretation Comments NA (test code = 134 mmol/L 135-145 L 6909582325) K (test code = 4.6 mmol/L 3.5-5.0 0663129890) CL (test code = 103 mmol/L 98-108 8316386856) CO2 TOTAL (test code = 18 mmol/L 23-31 L 3019197699) AGAP (test code = 2-16 2525852430) BUN (test code = 30 mg/dL 7-23 H 5228105307) GLUCOSE (test code = 390 mg/dL 70-110 H 7049713068) CREATININE (test code = 0.93 mg/dL 0.50-1.04 1544643276) TOTAL BILI (test code = 0.4 mg/dL 0.1-1.1 8242948519) CALCIUM (test code = 10.0 mg/dL 8.6-10.6 6161174823) T PROTEIN (test code = 7.6 g/dL 6.3-8.2 7906640128) ALBUMIN (test code = 4.5 g/dL 3.5-5.0 0619015298) ALK PHOS (test code = 51 U/L 34-122 2804982977) ALTv (test code = 34 U/L 5-35 2-6) AST(SGOT) (test code = 26 U/L 13-40 0803667358) eGFR (test code = mL/min/1.73m2 4273868724) CALVIN (test code = CALVIN) Association of [...] tests). Lab Interpretation Abnormal (test code = 07197-0) [facility] [id number] 11:06:00 Test Item Value Reference Range Interpretation Comments POCT PREG (test code = 1605) neg On board controls acceptable with yes C Line (test code = 3574) POCT PREG LOT # (test code = 3575) [id number] POCT PREG TEST DATE (test 08/10/2022 code = 3576) Lab Interpretation (test code = Normal 85657-1) [facility] with [id number] 11:00:39 Test Item Value Reference Range Interpretation Comments WBC (test code = See_Comment [Automated 3619-2) message] The sy stem which generated this result transmitted reference range : 4.30 - 11.10 10*3/?L. The reference range was not used to interpret this result as normal/abnormal . RBC (test code = See_Comment [Automated 144-3) message] The sy stem which generated this [...] RDW-SD (test code = 40.1 fL 39.0-49.9 19702-1) RDW-CV (test code = 13.2 % 12.0-15.5 788-0) PLT (test code = See_Comment [Automated 777-3) message] The sy stem which generated this result transmitted reference range : 166 - 358 10*3/ ?L. The reference r doretha was not used to interpret this result as normal/abnormal . MPV (test code = 9.5 fL 9.5-12.9 56334-3) NRBC/100 WBC (test See_Comment [Automat ed code = 8257724342) message] The system which generated this result transmitted reference range : 0.0 - 10.0 /100 WBCs. The refer ence range was not u sed to interpret th is result as normal/abnormal . NRBC x10^3 (test code <0.01 See_Comment [Auto mated = 3553759940) message] The s ystem which generated this result transmitted reference range : 10*3/?L. The reference range was not used to interpret this result as normal/abnormal . GRAN MAT (NEUT) % 43.7 % (test code = 770-8) IMM GRAN % (test code 0.70 % = 5983453369) LYMPH % (test code = 41.9 % 736-9) MONO % (test code = 8.8 % 5905-5) EOS % (test code = 3.6 % 713-8) BASO % (test code = 1.3 % 706-2) GRAN MAT x10^3(ANC) 2.68 10*3/uL 1.88-7.09 (test code = 4720421510) IMM GRAN x10^3 (test 0.04 10*3/uL 0.00-0.06 code = 3446561500) LYMPH x10^3 (test code 2.57 10*3/uL 1.32-3.29 = 731-0) MONO x10^3 (test code 0.54 10*3/uL 0.33-0.92 = 742-7) EOS x10^3 (test code = 0.22 10*3/uL 0.03-0.39 711-2) BASO x10^3 (test code 0.08 10*3/uL 0.01-0.07 H = 704-7) Lab Interpretation Abnormal (test code = 69475-2) [facility] [id number] 00:00:00 Test Item Value Reference Range Interpretation Comments ANDIE SPECIES (test code = 78536) NEGATIVE G. VAGINALIS (test code = 48932) NEGATIVE T. VAGINALIS (test code = 31883) NEGATIVE VAGINAL PATHOGENS DNA [id number] 00:00:00 Test Item Value Reference Range Interpretation Comments ANDIE SPECIES (test code = 90123) NEGATIVE G. VAGINALIS (test code = 58815) NEGATIVE T. VAGINALIS (test code = 10105) NEGATIVE VAGINAL PATHOGENS DNA [id number] 00:00:00 Test Item Value Reference Range Interpretation Comments ANDIE SPECIES (test code = 19496) NEGATIVE G. VAGINALIS (test code = 24308) NEGATIVE T. VAGINALIS (test code = 07049) NEGATIVE VAGINAL PATHOGENS DNA [id number] 00:00:00 Test Item Value Reference Range Interpretation Comments ANDIE SPECIES (test code = 77051) NEGATIVE G. VAGINALIS (test code = 17848) NEGATIVE T. VAGINALIS (test code = 53698) NEGATIVE VAGINAL PATHOGENS DNA [id number] 00:00:00 Test Item Value Reference Range Interpretation Comments ANDIE SPECIES (test code = 38747) NEGATIVE G. VAGINALIS (test code = 02565) NEGATIVE T. VAGINALIS (test code = 17355) NEGATIVE VAGINAL PATHOGENS DNA [id number] 00:00:00 Test Item Value Reference Range Interpretation Comments ANDIE SPECIES (test code = 77034) NEGATIVE G. VAGINALIS (test code = 60851) NEGATIVE T. VAGINALIS (test code = 23874) NEGATIVE VAGINAL PATHOGENS DNA [id number] 00:00:00 Test Item Value Reference Range Interpretation Comments ANDIE SPECIES (test code = 53383) NEGATIVE G. VAGINALIS (test code = 73369) NEGATIVE T. VAGINALIS (test code = 71675) NEGATIVE VAGINAL PATHOGENS DNA [id number] 00:00:00 Test Item Value Reference Range Interpretation Comments ANDIE SPECIES (test code = 41043) NEGATIVE G. VAGINALIS (test code = 14125) NEGATIVE T. VAGINALIS (test code = 28000) NEGATIVE VAGINAL PATHOGENS DNA [id number] 00:00:00 Test Item Value Reference Range Interpretation Comments ANDIE SPECIES (test code = 47919) NEGATIVE G. VAGINALIS (test code = 23373) NEGATIVE T. VAGINALIS (test code = 29068) NEGATIVE VAGINAL PATHOGENS DNA [id number] 00:00:00 Test Item Value Reference Range Interpretation Comments ANDIE SPECIES (test code = 43481) NEGATIVE G. VAGINALIS (test code = 97979) NEGATIVE T. VAGINALIS (test code = 07950) NEGATIVE VAGINAL PATHOGENS DNA [id number] 00:00:00 Test Item Value Reference Range Interpretation Comments ANDIE SPECIES (test code = 95802) NEGATIVE G. VAGINALIS (test code = 04513) NEGATIVE T. VAGINALIS (test code = 89439) NEGATIVE VAGINAL PATHOGENS DNA [id number] 00:00:00 Test Item Value Reference Range Interpretation Comments ANDIE SPECIES (test code = 99876) NEGATIVE G. VAGINALIS (test code = 49642) NEGATIVE T. VAGINALIS (test code = 70665) NEGATIVE VAGINAL PATHOGENS DNA [id number] 00:00:00 Test Item Value Reference Range Interpretation Comments ANDIE SPECIES (test code = 70233) NEGATIVE G. VAGINALIS (test code = 34258) NEGATIVE T. VAGINALIS (test code = 14977) NEGATIVE VAGINAL PATHOGENS DNA [id number] 00:00:00 Test Item Value Reference Range Interpretation Comments ANDIE SPECIES (test code = 61649) NEGATIVE G. VAGINALIS (test code = 11516) NEGATIVE T. VAGINALIS (test code = 24741) NEGATIVE VAGINAL PATHOGENS DNA [id number] 00:00:00 Test Item Value Reference Range Interpretation Comments ANDIE SPECIES (test code = 47903) NEGATIVE G. VAGINALIS (test code = 38000) NEGATIVE T. VAGINALIS (test code = 56093) NEGATIVE VAGINAL PATHOGENS DNA [id number] 00:00:00 Test Item Value Reference Range Interpretation Comments ANDIE SPECIES (test code = 33884) NEGATIVE G. VAGINALIS (test code = 45546) NEGATIVE T. VAGINALIS (test code = ) NEGATIVE VAGINAL PATHOGENS DNA [id number] 00:00:00 Test Item Value Reference Range Interpretation Comments ANDIE SPECIES (test code = 18271) NEGATIVE G. VAGINALIS (test code = 51252) NEGATIVE T. VAGINALIS (test code = 75298) NEGATIVE VAGINAL PATHOGENS DNA [id number] 00:00:00 Test Item Value Reference Range Interpretation Comments ANDIE SPECIES (test code = 78371) NEGATIVE G. VAGINALIS (test code = 42925) NEGATIVE T. VAGINALIS (test code = 36174) NEGATIVE VAGINAL PATHOGENS DNA [id number] 00:00:00 Test Item Value Reference Range Interpretation Comments ANDIE SPECIES (test code = 02959) NEGATIVE G. VAGINALIS (test code = 70678) NEGATIVE T. VAGINALIS (test code = 68617) NEGATIVE VAGINAL PATHOGENS DNA [id number] 00:00:00 Test Item Value Reference Range Interpretation Comments ANDIE SPECIES (test code = 64028) NEGATIVE G. VAGINALIS (test code = 37781) NEGATIVE T. VAGINALIS (test code = 21274) NEGATIVE VAGINAL PATHOGENS DNA [id number] 00:00:00 Test Item Value Reference Range Interpretation Comments ANDIE SPECIES (test code = 39577) NEGATIVE G. VAGINALIS (test code = 01268) NEGATIVE T. VAGINALIS (test code = 14791) NEGATIVE SARS-CoV-2 (COVID-19) by RT-PCR (HIGH RISK)2021-02-26 00:00:00 Test Item Value Reference Range Interpretation Comments SARS-CoV-2 INTERPRETATION (test NEGATIVE code = 89488) SOURCE (test code = 74799) NOT SPECIFIED SARS-CoV-2 (COVID-19) by RT-PCR (HIGH RISK)2021-02-26 00:00:00 Test Item Value Reference Range Interpretation Comments SARS-CoV-2 INTERPRETATION (test NEGATIVE code = 53554) SOURCE (test code = 01026) NOT SPECIFIED SARS-CoV-2 (COVID-19) by RT-PCR (HIGH RISK)2021-02-26 00:00:00 Test Item Value Reference Range Interpretation Comments SARS-CoV-2 INTERPRETATION (test NEGATIVE code = 41064) SOURCE (test code = 62085) NOT SPECIFIED SARS-CoV-2 (COVID-19) by RT-PCR (HIGH RISK)2021-02-26 00:00:00 Test Item Value Reference Range Interpretation Comments SARS-CoV-2 INTERPRETATION (test NEGATIVE code = 72932) SOURCE (test code = 86345) NOT SPECIFIED SARS-CoV-2 (COVID-19) by RT-PCR (HIGH RISK)2021-02-26 00:00:00 Test Item Value Reference Range Interpretation Comments SARS-CoV-2 INTERPRETATION (test NEGATIVE code = 68528) SOURCE (test code = 54785) NOT SPECIFIED SARS-CoV-2 (COVID-19) by RT-PCR (HIGH RISK)2021-02-26 00:00:00 Test Item Value Reference Range Interpretation Comments SARS-CoV-2 INTERPRETATION (test NEGATIVE code = 07078) SOURCE (test code = 10925) NOT SPECIFIED SARS-CoV-2 (COVID-19) by RT-PCR (HIGH RISK)2021-02-26 00:00:00 Test Item Value Reference Range Interpretation Comments SARS-CoV-2 INTERPRETATION (test NEGATIVE code = 53886) SOURCE (test code = 39299) NOT SPECIFIED SARS-CoV-2 (COVID-19) by RT-PCR (HIGH RISK)2021-02-26 00:00:00 Test Item Value Reference Range Interpretation Comments SARS-CoV-2 INTERPRETATION (test NEGATIVE code = 89343) SOURCE (test code = 34616) NOT SPECIFIED SARS-CoV-2 (COVID-19) by RT-PCR (HIGH RISK)2021-02-26 00:00:00 Test Item Value Reference Range Interpretation Comments SARS-CoV-2 INTERPRETATION (test NEGATIVE code = 09614) SOURCE (test code = 48308) NOT SPECIFIED SARS-CoV-2 (COVID-19) by RT-PCR (HIGH RISK)2021-02-26 00:00:00 Test Item Value Reference Range Interpretation Comments SARS-CoV-2 INTERPRETATION (test NEGATIVE code = 18349) SOURCE (test code = 83412) NOT SPECIFIED SARS-CoV-2 (COVID-19) by RT-PCR (HIGH RISK)2021-02-26 00:00:00 Test Item Value Reference Range Interpretation Comments SARS-CoV-2 INTERPRETATION (test NEGATIVE code = 23873) SOURCE (test code = 04612) NOT SPECIFIED SARS-CoV-2 (COVID-19) by RT-PCR (HIGH RISK)2021-02-26 00:00:00 Test Item Value Reference Range Interpretation Comments SARS-CoV-2 INTERPRETATION (test NEGATIVE code = 44077) SOURCE (test code = 59121) NOT SPECIFIED SARS-CoV-2 (COVID-19) by RT-PCR (HIGH RISK)2021-02-26 00:00:00 Test Item Value Reference Range Interpretation Comments SARS-CoV-2 INTERPRETATION (test NEGATIVE code = 33919) SOURCE (test code = 15452) NOT SPECIFIED SARS-CoV-2 (COVID-19) by RT-PCR (HIGH RISK)2021-02-26 00:00:00 Test Item Value Reference Range Interpretation Comments SARS-CoV-2 INTERPRETATION (test NEGATIVE code = 03229) SOURCE (test code = 49372) NOT SPECIFIED SARS-CoV-2 (COVID-19) by RT-PCR (HIGH RISK)2021-02-26 00:00:00 Test Item Value Reference Range Interpretation Comments SARS-CoV-2 INTERPRETATION (test NEGATIVE code = 69919) SOURCE (test code = 34065) NOT SPECIFIED SARS-CoV-2 (COVID-19) by RT-PCR (HIGH RISK)2021-02-26 00:00:00 Test Item Value Reference Range Interpretation Comments SARS-CoV-2 INTERPRETATION (test NEGATIVE code = 87448) SOURCE (test code = 94942) NOT SPECIFIED SARS-CoV-2 (COVID-19) by RT-PCR (HIGH RISK)2021-02-26 00:00:00 Test Item Value Reference Range Interpretation Comments SARS-CoV-2 INTERPRETATION (test NEGATIVE code = 41266) SOURCE (test code = 76994) NOT SPECIFIED SARS-CoV-2 (COVID-19) by RT-PCR (HIGH RISK)2021-02-26 00:00:00 Test Item Value Reference Range Interpretation Comments SARS-CoV-2 INTERPRETATION (test NEGATIVE code = 58754) SOURCE (test code = 63633) NOT SPECIFIED SARS-CoV-2 (COVID-19) by RT-PCR (HIGH RISK)2021-02-26 00:00:00 Test Item Value Reference Range Interpretation Comments SARS-CoV-2 INTERPRETATION (test NEGATIVE code = 45798) SOURCE (test code = 74975) NOT SPECIFIED SARS-CoV-2 (COVID-19) by RT-PCR (HIGH RISK)2021-02-26 00:00:00 Test Item Value Reference Range Interpretation Comments SARS-CoV-2 INTERPRETATION (test NEGATIVE code = 48533) SOURCE (test code = 49502) NOT SPECIFIED SARS-CoV-2 (COVID-19) by RT-PCR (HIGH RISK)2021-02-26 00:00:00 Test Item Value Reference Range Interpretation Comments SARS-CoV-2 INTERPRETATION (test NEGATIVE code = 41860) SOURCE (test code = 78767) NOT SPECIFIED CULTURE, URINE [ADDED]2021-02-13 00:00:00 Test Item Value Reference Range Interpretation Comments CULTURE, URINE (test SPECIMEN NUMBER: code = 75778) [id number] CULTURE, URINE [ADDED]2021-02-13 00:00:00 Test Item Value Reference Range Interpretation Comments CULTURE, URINE (test SPECIMEN NUMBER: code = 50459) [id number] CULTURE, URINE [ADDED]2021-02-13 00:00:00 Test Item Value Reference Range Interpretation Comments CULTURE, URINE (test SPECIMEN NUMBER: code = 06502) [id number] CULTURE, URINE [ADDED]2021-02-13 00:00:00 Test Item Value Reference Range Interpretation Comments CULTURE, URINE (test SPECIMEN NUMBER: code = 94577) [id number] CULTURE, URINE [ADDED]2021-02-13 00:00:00 Test Item Value Reference Range Interpretation Comments CULTURE, URINE (test SPECIMEN NUMBER: code = 46630) [id number] CULTURE, URINE [ADDED]2021-02-13 00:00:00 Test Item Value Reference Range Interpretation Comments CULTURE, URINE (test SPECIMEN NUMBER: code = 74638) [id number] CULTURE, URINE [ADDED]2021-02-13 00:00:00 Test Item Value Reference Range Interpretation Comments CULTURE, URINE (test SPECIMEN NUMBER: code = 95223) [id number] CULTURE, URINE [ADDED]2021-02-13 00:00:00 Test Item Value Reference Range Interpretation Comments CULTURE, URINE (test SPECIMEN NUMBER: code = 72247) [id number] CULTURE, URINE [ADDED]2021-02-13 00:00:00 Test Item Value Reference Range Interpretation Comments CULTURE, URINE (test SPECIMEN NUMBER: code = 77904) [id number] CULTURE, URINE [ADDED]2021-02-13 00:00:00 Test Item Value Reference Range Interpretation Comments CULTURE, URINE (test SPECIMEN NUMBER: code = 07077) [id number] CULTURE, URINE [ADDED]2021-02-13 00:00:00 Test Item Value Reference Range Interpretation Comments CULTURE, URINE (test SPECIMEN NUMBER: code = 94516) [id number] CULTURE, URINE [ADDED]2021-02-13 00:00:00 Test Item Value Reference Range Interpretation Comments CULTURE, URINE (test SPECIMEN NUMBER: code = 47812) [id number] CULTURE, URINE [ADDED]2021-02-13 00:00:00 Test Item Value Reference Range Interpretation Comments CULTURE, URINE (test SPECIMEN NUMBER: code = 67107) [id number] CULTURE, URINE [ADDED]2021-02-13 00:00:00 Test Item Value Reference Range Interpretation Comments CULTURE, URINE (test SPECIMEN NUMBER: code = 86965) [id number] CULTURE, URINE [ADDED]2021-02-13 00:00:00 Test Item Value Reference Range Interpretation Comments CULTURE, URINE (test SPECIMEN NUMBER: code = 00951) [id number] CULTURE, URINE [ADDED]2021-02-13 00:00:00 Test Item Value Reference Range Interpretation Comments CULTURE, URINE (test SPECIMEN NUMBER: code = 28779) [id number] CULTURE, URINE [ADDED]2021-02-13 00:00:00 Test Item Value Reference Range Interpretation Comments CULTURE, URINE (test SPECIMEN NUMBER: code = 00179) [id number] CULTURE, URINE [ADDED]2021-02-13 00:00:00 Test Item Value Reference Range Interpretation Comments CULTURE, URINE (test SPECIMEN NUMBER: code = 50958) [id number] CULTURE, URINE [ADDED]2021-02-13 00:00:00 Test Item Value Reference Range Interpretation Comments CULTURE, URINE (test SPECIMEN NUMBER: code = 08003) [id number] CULTURE, URINE [ADDED]2021-02-13 00:00:00 Test Item Value Reference Range Interpretation Comments CULTURE, URINE (test SPECIMEN NUMBER: code = 97421) [id number] CULTURE, URINE [ADDED]2021-02-13 00:00:00 Test Item Value Reference Range Interpretation Comments CULTURE, URINE (test SPECIMEN NUMBER: code = 02250) [id number] VAGINAL PATHOGENS DNA [id number] 00:00:00 Test Item Value Reference Range Interpretation Comments ANDIE SPECIES (test code = ) NEGATIVE G. VAGINALIS (test code = ) POSITIVE T. VAGINALIS (test code = ) NEGATIVE VAGINAL PATHOGENS DNA [id number] 00:00:00 Test Item Value Reference Range Interpretation Comments ANDIE SPECIES (test code = 89055) NEGATIVE G. VAGINALIS (test code = 37308) POSITIVE T. VAGINALIS (test code = 34590) NEGATIVE VAGINAL PATHOGENS DNA [id number] 00:00:00 Test Item Value Reference Range Interpretation Comments ANDIE SPECIES (test code = 06052) NEGATIVE G. VAGINALIS (test code = 29645) POSITIVE T. VAGINALIS (test code = 29040) NEGATIVE VAGINAL PATHOGENS DNA [id number] 00:00:00 Test Item Value Reference Range Interpretation Comments ANDIE SPECIES (test code = 88215) NEGATIVE G. VAGINALIS (test code = 34761) POSITIVE T. VAGINALIS (test code = 86386) NEGATIVE VAGINAL PATHOGENS DNA [id number] 00:00:00 Test Item Value Reference Range Interpretation Comments ANDIE SPECIES (test code = 67085) NEGATIVE G. VAGINALIS (test code = 61513) POSITIVE T. VAGINALIS (test code = 72281) NEGATIVE VAGINAL PATHOGENS DNA [id number] 00:00:00 Test Item Value Reference Range Interpretation Comments ANDIE SPECIES (test code = 43170) NEGATIVE G. VAGINALIS (test code = 45267) POSITIVE T. VAGINALIS (test code = 47108) NEGATIVE VAGINAL PATHOGENS DNA [id number] 00:00:00 Test Item Value Reference Range Interpretation Comments ANDIE SPECIES (test code = 16661) NEGATIVE G. VAGINALIS (test code = 29916) POSITIVE T. VAGINALIS (test code = 91349) NEGATIVE VAGINAL PATHOGENS DNA [id number] 00:00:00 Test Item Value Reference Range Interpretation Comments ANDIE SPECIES (test code = 32293) NEGATIVE G. VAGINALIS (test code = 46561) POSITIVE T. VAGINALIS (test code = 52121) NEGATIVE VAGINAL PATHOGENS DNA [id number] 00:00:00 Test Item Value Reference Range Interpretation Comments ANDIE SPECIES (test code = 09208) NEGATIVE G. VAGINALIS (test code = 15805) POSITIVE T. VAGINALIS (test code = 53579) NEGATIVE VAGINAL PATHOGENS DNA [id number] 00:00:00 Test Item Value Reference Range Interpretation Comments ANDIE SPECIES (test code = 71869) NEGATIVE G. VAGINALIS (test code = 40539) POSITIVE T. VAGINALIS (test code = 52823) NEGATIVE VAGINAL PATHOGENS DNA [id number] 00:00:00 Test Item Value Reference Range Interpretation Comments ANDIE SPECIES (test code = 58565) NEGATIVE G. VAGINALIS (test code = 36762) POSITIVE T. VAGINALIS (test code = 41632) NEGATIVE VAGINAL PATHOGENS DNA [id number] 00:00:00 Test Item Value Reference Range Interpretation Comments ANDIE SPECIES (test code = 71489) NEGATIVE G. VAGINALIS (test code = 82085) POSITIVE T. VAGINALIS (test code = 58170) NEGATIVE VAGINAL PATHOGENS DNA [id number] 00:00:00 Test Item Value Reference Range Interpretation Comments ANDIE SPECIES (test code = 69338) NEGATIVE G. VAGINALIS (test code = 87480) POSITIVE T. VAGINALIS (test code = 97294) NEGATIVE VAGINAL PATHOGENS DNA [id number] 00:00:00 Test Item Value Reference Range Interpretation Comments ANDIE SPECIES (test code = 81287) NEGATIVE G. VAGINALIS (test code = 17898) POSITIVE T. VAGINALIS (test code = 25815) NEGATIVE VAGINAL PATHOGENS DNA [id number] 00:00:00 Test Item Value Reference Range Interpretation Comments ANDIE SPECIES (test code = 07464) NEGATIVE G. VAGINALIS (test code = 86595) POSITIVE T. VAGINALIS (test code = 50631) NEGATIVE VAGINAL PATHOGENS DNA [id number] 00:00:00 Test Item Value Reference Range Interpretation Comments ANDIE SPECIES (test code = 67639) NEGATIVE G. VAGINALIS (test code = 81848) POSITIVE T. VAGINALIS (test code = 69036) NEGATIVE VAGINAL PATHOGENS DNA [id number] 00:00:00 Test Item Value Reference Range Interpretation Comments ANDIE SPECIES (test code = 76650) NEGATIVE G. VAGINALIS (test code = 25883) POSITIVE T. VAGINALIS (test code = 46294) NEGATIVE VAGINAL PATHOGENS DNA [id number] 00:00:00 Test Item Value Reference Range Interpretation Comments ANDIE SPECIES (test code = 41054) NEGATIVE G. VAGINALIS (test code = 71647) POSITIVE T. VAGINALIS (test code = 27462) NEGATIVE VAGINAL PATHOGENS DNA [id number] 00:00:00 Test Item Value Reference Range Interpretation Comments ANDIE SPECIES (test code = 27064) NEGATIVE G. VAGINALIS (test code = 88283) POSITIVE T. VAGINALIS (test code = ) NEGATIVE VAGINAL PATHOGENS DNA [id number] 00:00:00 Test Item Value Reference Range Interpretation Comments ANDIE SPECIES (test code = ) NEGATIVE G. VAGINALIS (test code = 75995) POSITIVE T. VAGINALIS (test code = 22593) NEGATIVE VAGINAL PATHOGENS DNA [id number] 00:00:00 Test Item Value Reference Range Interpretation Comments ANDIE SPECIES (test code = ) NEGATIVE G. VAGINALIS (test code = 11360) POSITIVE T. VAGINALIS (test code = 34288) NEGATIVE BLOOD GROUP (ABO) AND RH [id number] 00:00:00 Test Item Value Reference Range Interpretation Comments BLOOD TYPE AND RH (test code = A POSITIVE 3901) BLOOD GROUP (ABO) AND RH [id number] 00:00:00 Test Item Value Reference Range Interpretation Comments BLOOD TYPE AND RH (test code = A POSITIVE 3901) BLOOD GROUP (ABO) AND RH [id number] 00:00:00 Test Item Value Reference Range Interpretation Comments BLOOD TYPE AND RH (test code = A POSITIVE 3901) HEMOGLOBIN [id number] 00:00:00 Test Item Value Reference Range Interpretation Comments HEMOGLOBIN A1c (test code = 49658) 11.8 % HEMOGLOBIN [id number] 00:00:00 Test Item Value Reference Range Interpretation Comments HEMOGLOBIN A1c (test code = 99137) 11.8 % HEMOGLOBIN [id number] 00:00:00 Test Item Value Reference Range Interpretation Comments HEMOGLOBIN A1c (test code = 99853) 11.8 % BLOOD GROUP (ABO) AND RH [id number] 00:00:00 Test Item Value Reference Range Interpretation Comments BLOOD TYPE AND RH (test code = A POSITIVE 3901) BLOOD GROUP (ABO) AND RH [id number] 00:00:00 Test Item Value Reference Range Interpretation Comments BLOOD TYPE AND RH (test code = A POSITIVE 3901) BLOOD GROUP (ABO) AND RH [id number] 00:00:00 Test Item Value Reference Range Interpretation Comments BLOOD TYPE AND RH (test code = A POSITIVE 3901) HEMOGLOBIN [id number] 00:00:00 Test Item Value Reference Range Interpretation Comments HEMOGLOBIN A1c (test code = 78453) 11.8 % HEMOGLOBIN [id number] 00:00:00 Test Item Value Reference Range Interpretation Comments HEMOGLOBIN A1c (test code = 44530) 11.8 % HEMOGLOBIN [id number] 00:00:00 Test Item Value Reference Range Interpretation Comments HEMOGLOBIN A1c (test code = 22632) 11.8 % BLOOD GROUP (ABO) AND RH [id number] 00:00:00 Test Item Value Reference Range Interpretation Comments BLOOD TYPE AND RH (test code = A POSITIVE 3901) BLOOD GROUP (ABO) AND RH [id number] 00:00:00 Test Item Value Reference Range Interpretation Comments BLOOD TYPE AND RH (test code = A POSITIVE 3901) BLOOD GROUP (ABO) AND RH [id number] 00:00:00 Test Item Value Reference Range Interpretation Comments BLOOD TYPE AND RH (test code = A POSITIVE 3901) HEMOGLOBIN [id number] 00:00:00 Test Item Value Reference Range Interpretation Comments HEMOGLOBIN A1c (test code = 96083) 11.8 % HEMOGLOBIN [id number] 00:00:00 Test Item Value Reference Range Interpretation Comments HEMOGLOBIN A1c (test code = 28468) 11.8 % HEMOGLOBIN [id number] 00:00:00 Test Item Value Reference Range Interpretation Comments HEMOGLOBIN A1c (test code = 14661) 11.8 % BLOOD GROUP (ABO) AND RH [id number] 00:00:00 Test Item Value Reference Range Interpretation Comments BLOOD TYPE AND RH (test code = A POSITIVE 3901) BLOOD GROUP (ABO) AND RH [id number] 00:00:00 Test Item Value Reference Range Interpretation Comments BLOOD TYPE AND RH (test code = A POSITIVE 3901) BLOOD GROUP (ABO) AND RH [id number] 00:00:00 Test Item Value Reference Range Interpretation Comments BLOOD TYPE AND RH (test code = A POSITIVE 3901) HEMOGLOBIN [id number] 00:00:00 Test Item Value Reference Range Interpretation Comments HEMOGLOBIN A1c (test code = 19651) 11.8 % HEMOGLOBIN [id number] 00:00:00 Test Item Value Reference Range Interpretation Comments HEMOGLOBIN A1c (test code = 67121) 11.8 % HEMOGLOBIN [id number] 00:00:00 Test Item Value Reference Range Interpretation Comments HEMOGLOBIN A1c (test code = 67852) 11.8 % BLOOD GROUP (ABO) AND RH [id number] 00:00:00 Test Item Value Reference Range Interpretation Comments BLOOD TYPE AND RH (test code = A POSITIVE 3901) BLOOD GROUP (ABO) AND RH [id number] 00:00:00 Test Item Value Reference Range Interpretation Comments BLOOD TYPE AND RH (test code = A POSITIVE 3901) BLOOD GROUP (ABO) AND RH [id number] 00:00:00 Test Item Value Reference Range Interpretation Comments BLOOD TYPE AND RH (test code = A POSITIVE 3901) HEMOGLOBIN [id number] 00:00:00 Test Item Value Reference Range Interpretation Comments HEMOGLOBIN A1c (test code = 41309) 11.8 % HEMOGLOBIN [id number] 00:00:00 Test Item Value Reference Range Interpretation Comments HEMOGLOBIN A1c (test code = 71407) 11.8 % HEMOGLOBIN [id number] 00:00:00 Test Item Value Reference Range Interpretation Comments HEMOGLOBIN A1c (test code = 85245) 11.8 % BLOOD GROUP (ABO) AND RH [id number] 00:00:00 Test Item Value Reference Range Interpretation Comments BLOOD TYPE AND RH (test code = A POSITIVE 3901) BLOOD GROUP (ABO) AND RH [id number] 00:00:00 Test Item Value Reference Range Interpretation Comments BLOOD TYPE AND RH (test code = A POSITIVE 3901) BLOOD GROUP (ABO) AND RH [id number] 00:00:00 Test Item Value Reference Range Interpretation Comments BLOOD TYPE AND RH (test code = A POSITIVE 3901) HEMOGLOBIN [id number] 00:00:00 Test Item Value Reference Range Interpretation Comments HEMOGLOBIN A1c (test code = 79432) 11.8 % HEMOGLOBIN [id number] 00:00:00 Test Item Value Reference Range Interpretation Comments HEMOGLOBIN A1c (test code = 15617) 11.8 % HEMOGLOBIN [id number] 00:00:00 Test Item Value Reference Range Interpretation Comments HEMOGLOBIN A1c (test code = 25255) 11.8 % BLOOD GROUP (ABO) AND RH [id number] 00:00:00 Test Item Value Reference Range Interpretation Comments BLOOD TYPE AND RH (test code = A POSITIVE 3901) BLOOD GROUP (ABO) AND RH [id number] 00:00:00 Test Item Value Reference Range Interpretation Comments BLOOD TYPE AND RH (test code = A POSITIVE 3901) BLOOD GROUP (ABO) AND RH [id number] 00:00:00 Test Item Value Reference Range Interpretation Comments BLOOD TYPE AND RH (test code = A POSITIVE 3901) HEMOGLOBIN [id number] 00:00:00 Test Item Value Reference Range Interpretation Comments HEMOGLOBIN A1c (test code = 27633) 11.8 % BLOOD GROUP (ABO) AND RH [id number] 00:00:00 Test Item Value Reference Range Interpretation Comments BLOOD TYPE AND RH (test code = A POSITIVE 3901) HEMOGLOBIN [id number] 00:00:00 Test Item Value Reference Range Interpretation Comments HEMOGLOBIN A1c (test code = 35543) 11.8 % HEMOGLOBIN [id number] 00:00:00 Test Item Value Reference Range Interpretation Comments HEMOGLOBIN A1c (test code = 47603) 11.8 % BLOOD GROUP (ABO) AND RH [id number] 00:00:00 Test Item Value Reference Range Interpretation Comments BLOOD TYPE AND RH (test code = A POSITIVE 3901) HEMOGLOBIN [id number] 00:00:00 Test Item Value Reference Range Interpretation Comments HEMOGLOBIN A1c (test code = 75401) 11.8 % HEMOGLOBIN [id number] 00:00:00 Test Item Value Reference Range Interpretation Comments HEMOGLOBIN A1c (test code = 69582) 11.8 % BLOOD GROUP (ABO) AND RH [id number] 00:00:00 Test Item Value Reference Range Interpretation Comments BLOOD TYPE AND RH (test code = A POSITIVE 3901) BLOOD GROUP (ABO) AND RH [id number] 00:00:00 Test Item Value Reference Range Interpretation Comments BLOOD TYPE AND RH (test code = A POSITIVE 3901) BLOOD GROUP (ABO) AND RH [id number] 00:00:00 Test Item Value Reference Range Interpretation Comments BLOOD TYPE AND RH (test code = A POSITIVE 3901) HEMOGLOBIN [id number] 00:00:00 Test Item Value Reference Range Interpretation Comments HEMOGLOBIN A1c (test code = 63995) 11.8 % HEMOGLOBIN [id number] 00:00:00 Test Item Value Reference Range Interpretation Comments HEMOGLOBIN A1c (test code = 34909) 11.8 % HEMOGLOBIN [id number] 00:00:00 Test Item Value Reference Range Interpretation Comments HEMOGLOBIN A1c (test code = 92307) 11.8 % BLOOD GROUP (ABO) AND RH [id number] 00:00:00 Test Item Value Reference Range Interpretation Comments BLOOD TYPE AND RH (test code = A POSITIVE 3901) BLOOD GROUP (ABO) AND RH [id number] 00:00:00 Test Item Value Reference Range Interpretation Comments BLOOD TYPE AND RH (test code = A POSITIVE 3901) BLOOD GROUP (ABO) AND RH [id number] 00:00:00 Test Item Value Reference Range Interpretation Comments BLOOD TYPE AND RH (test code = A POSITIVE 3901) HEMOGLOBIN [id number] 00:00:00 Test Item Value Reference Range Interpretation Comments HEMOGLOBIN A1c (test code = 60223) 11.8 % HEMOGLOBIN [id number] 00:00:00 Test Item Value Reference Range Interpretation Comments HEMOGLOBIN A1c (test code = 59766) 11.8 % HEMOGLOBIN [id number] 00:00:00 Test Item Value Reference Range Interpretation Comments HEMOGLOBIN A1c (test code = 73100) 11.8 % BLOOD GROUP (ABO) AND RH [id number] 00:00:00 Test Item Value Reference Range Interpretation Comments BLOOD TYPE AND RH (test code = A POSITIVE 3901) BLOOD GROUP (ABO) AND RH [id number] 00:00:00 Test Item Value Reference Range Interpretation Comments BLOOD TYPE AND RH (test code = A POSITIVE 3901) BLOOD GROUP (ABO) AND RH [id number] 00:00:00 Test Item Value Reference Range Interpretation Comments BLOOD TYPE AND RH (test code = A POSITIVE 3901) HEMOGLOBIN [id number] 00:00:00 Test Item Value Reference Range Interpretation Comments HEMOGLOBIN A1c (test code = 09984) 11.8 % HEMOGLOBIN [id number] 00:00:00 Test Item Value Reference Range Interpretation Comments HEMOGLOBIN A1c (test code = 14609) 11.8 % HEMOGLOBIN [id number] 00:00:00 Test Item Value Reference Range Interpretation Comments HEMOGLOBIN A1c (test code = 07446) 11.8 % COMPREHENSIVE METABOLIC [id number] 00:00:00 Test Item Value Reference Range Interpretation Comments GLUCOSE (test code = 2217) 277 MG/DL BUN (test code = 2208) 26 MG/DL CREATININE (test code = 2214) 1.04 MG/DL eGFR AMER. (test code 77 ML/MIN/1.73 = 40506) eGFR NON- AMER. (test 66 ML/MIN/1.73 code = 96147) CALC BUN/CREAT (test code = 25 RATIO [...] code = 2219) 51 U/L COMPREHENSIVE METABOLIC [id number] 00:00:00 Test Item Value Reference Range Interpretation Comments GLUCOSE (test code = 2217) 277 MG/DL BUN (test code = 2208) 26 MG/DL CREATININE (test code = 2214) 1.04 MG/DL eGFR AMER. (test code 77 ML/MIN/1.73 = 57069) eGFR NON- AMER. (test 66 ML/MIN/1.73 code = 67910) CALC BUN/CREAT (test code = 25 RATIO [...] (test code = 2219) 51 U/L CULTURE, [id number] 00:00:00 Test Item Value Reference Range Interpretation Comments CULTURE, URINE (test SPECIMEN NUMBER: code = 90992) [id number] CULTURE, [id number] 00:00:00 Test Item Value Reference Range Interpretation Comments CULTURE, URINE (test SPECIMEN NUMBER: code = 03610) [id number] COMPREHENSIVE METABOLIC [id number] 00:00:00 Test Item Value Reference Range Interpretation Comments GLUCOSE (test code = 2217) 277 MG/DL BUN (test code = 2208) 26 MG/DL CREATININE (test code = 2214) 1.04 MG/DL eGFR AMER. (test code 77 ML/MIN/1.73 = 63145) eGFR NON- AMER. (test 66 ML/MIN/1.73 code = 19887) CALC BUN/CREAT (test code = 25 RATIO [...] code = 2219) 51 U/L COMPREHENSIVE METABOLIC [id number] 00:00:00 Test Item Value Reference Range Interpretation Comments GLUCOSE (test code = 2217) 277 MG/DL BUN (test code = 2208) 26 MG/DL CREATININE (test code = 2214) 1.04 MG/DL eGFR AMER. (test code 77 ML/MIN/1.73 = 23459) eGFR NON- AMER. (test 66 ML/MIN/1.73 code = 40576) CALC BUN/CREAT (test code = 25 RATIO [...] (test code = 2219) 51 U/L CULTURE, [id number] 00:00:00 Test Item Value Reference Range Interpretation Comments CULTURE, URINE (test SPECIMEN NUMBER: code = 03947) [id number] CULTURE, [id number] 00:00:00 Test Item Value Reference Range Interpretation Comments CULTURE, URINE (test SPECIMEN NUMBER: code = 67749) [id number] COMPREHENSIVE METABOLIC [id number] 00:00:00 Test Item Value Reference Range Interpretation Comments GLUCOSE (test code = 2217) 277 MG/DL BUN (test code = 2208) 26 MG/DL CREATININE (test code = 2214) 1.04 MG/DL eGFR AMER. (test code 77 ML/MIN/1.73 = 40769) eGFR NON- AMER. (test 66 ML/MIN/1.73 code = 41723) CALC BUN/CREAT (test code = 25 RATIO [...] code = 2219) 51 U/L COMPREHENSIVE METABOLIC [id number] 00:00:00 Test Item Value Reference Range Interpretation Comments GLUCOSE (test code = 2217) 277 MG/DL BUN (test code = 2208) 26 MG/DL CREATININE (test code = 2214) 1.04 MG/DL eGFR AMER. (test code 77 ML/MIN/1.73 = 34294) eGFR NON- AMER. (test 66 ML/MIN/1.73 code = 54362) CALC BUN/CREAT (test code = 25 RATIO [...] (test code = 2219) 51 U/L CULTURE, [id number] 00:00:00 Test Item Value Reference Range Interpretation Comments CULTURE, URINE (test SPECIMEN NUMBER: code = 80537) [id number] CULTURE, [id number] 00:00:00 Test Item Value Reference Range Interpretation Comments CULTURE, URINE (test SPECIMEN NUMBER: code = 49464) [id number] COMPREHENSIVE METABOLIC [id number] 00:00:00 Test Item Value Reference Range Interpretation Comments GLUCOSE (test code = 2217) 277 MG/DL BUN (test code = 2208) 26 MG/DL CREATININE (test code = 2214) 1.04 MG/DL eGFR AMER. (test code 77 ML/MIN/1.73 = 65096) eGFR NON- AMER. (test 66 ML/MIN/1.73 code = 38271) CALC BUN/CREAT (test code = 25 RATIO [...] code = 2219) 51 U/L COMPREHENSIVE METABOLIC [id number] 00:00:00 Test Item Value Reference Range Interpretation Comments GLUCOSE (test code = 2217) 277 MG/DL BUN (test code = 2208) 26 MG/DL CREATININE (test code = 2214) 1.04 MG/DL eGFR AMER. (test code 77 ML/MIN/1.73 = 77983) eGFR NON- AMER. (test 66 ML/MIN/1.73 code = 48010) CALC BUN/CREAT (test code = 25 RATIO [...] (test code = 2219) 51 U/L CULTURE, [id number] 00:00:00 Test Item Value Reference Range Interpretation Comments CULTURE, URINE (test SPECIMEN NUMBER: code = 70947) [id number] CULTURE, [id number] 00:00:00 Test Item Value Reference Range Interpretation Comments CULTURE, URINE (test SPECIMEN NUMBER: code = 31760) [id number] COMPREHENSIVE METABOLIC [id number] 00:00:00 Test Item Value Reference Range Interpretation Comments GLUCOSE (test code = 2217) 277 MG/DL BUN (test code = 2208) 26 MG/DL CREATININE (test code = 2214) 1.04 MG/DL eGFR AMER. (test code 77 ML/MIN/1.73 = 22783) eGFR NON- AMER. (test 66 ML/MIN/1.73 code = 57475) CALC BUN/CREAT (test code = 25 RATIO [...] code = 2219) 51 U/L COMPREHENSIVE METABOLIC [id number] 00:00:00 Test Item Value Reference Range Interpretation Comments GLUCOSE (test code = 2217) 277 MG/DL BUN (test code = 2208) 26 MG/DL CREATININE (test code = 2214) 1.04 MG/DL eGFR AMER. (test code 77 ML/MIN/1.73 = 22517) eGFR NON- AMER. (test 66 ML/MIN/1.73 code = 02045) CALC BUN/CREAT (test code = 25 RATIO [...] (test code = 2219) 51 U/L CULTURE, [id number] 00:00:00 Test Item Value Reference Range Interpretation Comments CULTURE, URINE (test SPECIMEN NUMBER: code = 99139) [id number] CULTURE, [id number] 00:00:00 Test Item Value Reference Range Interpretation Comments CULTURE, URINE (test SPECIMEN NUMBER: code = 36685) [id number] COMPREHENSIVE METABOLIC [id number] 00:00:00 Test Item Value Reference Range Interpretation Comments GLUCOSE (test code = 2217) 277 MG/DL BUN (test code = 2208) 26 MG/DL CREATININE (test code = 2214) 1.04 MG/DL eGFR AMER. (test code 77 ML/MIN/1.73 = 74189) eGFR NON- AMER. (test 66 ML/MIN/1.73 code = 04305) CALC BUN/CREAT (test code = 25 RATIO [...] code = 2219) 51 U/L COMPREHENSIVE METABOLIC [id number] 00:00:00 Test Item Value Reference Range Interpretation Comments GLUCOSE (test code = 2217) 277 MG/DL BUN (test code = 2208) 26 MG/DL CREATININE (test code = 2214) 1.04 MG/DL eGFR AMER. (test code 77 ML/MIN/1.73 = 74264) eGFR NON- AMER. (test 66 ML/MIN/1.73 code = 96142) CALC BUN/CREAT (test code = 25 RATIO [...] (test code = 2219) 51 U/L CULTURE, [id number] 00:00:00 Test Item Value Reference Range Interpretation Comments CULTURE, URINE (test SPECIMEN NUMBER: code = 57178) [id number] CULTURE, [id number] 00:00:00 Test Item Value Reference Range Interpretation Comments CULTURE, URINE (test SPECIMEN NUMBER: code = 80501) [id number] COMPREHENSIVE METABOLIC [id number] 00:00:00 Test Item Value Reference Range Interpretation Comments GLUCOSE (test code = 2217) 277 MG/DL BUN (test code = 2208) 26 MG/DL CREATININE (test code = 2214) 1.04 MG/DL eGFR AMER. (test code 77 ML/MIN/1.73 = 42670) eGFR NON- AMER. (test 66 ML/MIN/1.73 code = 49283) CALC BUN/CREAT (test code = 25 RATIO [...] code = 2219) 51 U/L COMPREHENSIVE METABOLIC [id number] 00:00:00 Test Item Value Reference Range Interpretation Comments GLUCOSE (test code = 2217) 277 MG/DL BUN (test code = 2208) 26 MG/DL CREATININE (test code = 2214) 1.04 MG/DL eGFR AMER. (test code 77 ML/MIN/1.73 = 07050) eGFR NON- AMER. (test 66 ML/MIN/1.73 code = 22840) CALC BUN/CREAT (test code = 25 RATIO [...] (test code = 2219) 51 U/L CULTURE, [id number] 00:00:00 Test Item Value Reference Range Interpretation Comments CULTURE, URINE (test SPECIMEN NUMBER: code = 27158) [id number] CULTURE, [id number] 00:00:00 Test Item Value Reference Range Interpretation Comments CULTURE, URINE (test SPECIMEN NUMBER: code = 29454) [id number] COMPREHENSIVE METABOLIC [id number] 00:00:00 Test Item Value Reference Range Interpretation Comments GLUCOSE (test code = 2217) 277 MG/DL BUN (test code = 2208) 26 MG/DL CREATININE (test code = 2214) 1.04 MG/DL eGFR AMER. (test code 77 ML/MIN/1.73 = 36747) eGFR NON- AMER. (test 66 ML/MIN/1.73 code = 40469) CALC BUN/CREAT (test code = 25 RATIO [...] (test code = 2219) 51 U/L CULTURE, [id number] 00:00:00 Test Item Value Reference Range Interpretation Comments CULTURE, URINE (test SPECIMEN NUMBER: code = 83746) [id number] COMPREHENSIVE METABOLIC [id number] 00:00:00 Test Item Value Reference Range Interpretation Comments GLUCOSE (test code = 2217) 277 MG/DL BUN (test code = 2208) 26 MG/DL CREATININE (test code = 2214) 1.04 MG/DL eGFR AMER. (test code 77 ML/MIN/1.73 = 99275) eGFR NON- AMER. (test 66 ML/MIN/1.73 code = 78140) CALC BUN/CREAT (test code = 25 RATIO [...] code = 2219) 51 U/L COMPREHENSIVE METABOLIC [id number] 00:00:00 Test Item Value Reference Range Interpretation Comments GLUCOSE (test code = 2217) 277 MG/DL BUN (test code = 2208) 26 MG/DL CREATININE (test code = 2214) 1.04 MG/DL eGFR AMER. (test code 77 ML/MIN/1.73 = 83712) eGFR NON- AMER. (test 66 ML/MIN/1.73 code = 74505) CALC BUN/CREAT (test code = 25 RATIO [...] (test code = 2219) 51 U/L CULTURE, [id number] 00:00:00 Test Item Value Reference Range Interpretation Comments CULTURE, URINE (test SPECIMEN NUMBER: code = 50824) [id number] CULTURE, [id number] 00:00:00 Test Item Value Reference Range Interpretation Comments CULTURE, URINE (test SPECIMEN NUMBER: code = 18300) [id number] COMPREHENSIVE METABOLIC [id number] 00:00:00 Test Item Value Reference Range Interpretation Comments GLUCOSE (test code = 2217) 277 MG/DL BUN (test code = 2208) 26 MG/DL CREATININE (test code = 2214) 1.04 MG/DL eGFR AMER. (test code 77 ML/MIN/1.73 = 11344) eGFR NON- AMER. (test 66 ML/MIN/1.73 code = 72068) CALC BUN/CREAT (test code = 25 RATIO [...] code = 2219) 51 U/L COMPREHENSIVE METABOLIC [id number] 00:00:00 Test Item Value Reference Range Interpretation Comments GLUCOSE (test code = 2217) 277 MG/DL BUN (test code = 2208) 26 MG/DL CREATININE (test code = 2214) 1.04 MG/DL eGFR AMER. (test code 77 ML/MIN/1.73 = 68489) eGFR NON- AMER. (test 66 ML/MIN/1.73 code = 03110) CALC BUN/CREAT (test code = 25 RATIO [...] (test code = 2219) 51 U/L CULTURE, [id number] 00:00:00 Test Item Value Reference Range Interpretation Comments CULTURE, URINE (test SPECIMEN NUMBER: code = 92569) [id number] CULTURE, [id number] 00:00:00 Test Item Value Reference Range Interpretation Comments CULTURE, URINE (test SPECIMEN NUMBER: code = 61009) [id number] COMPREHENSIVE METABOLIC [id number] 00:00:00 Test Item Value Reference Range Interpretation Comments GLUCOSE (test code = 2217) 277 MG/DL BUN (test code = 2208) 26 MG/DL CREATININE (test code = 2214) 1.04 MG/DL eGFR AMER. (test code 77 ML/MIN/1.73 = 37379) eGFR NON- AMER. (test 66 ML/MIN/1.73 code = 02951) CALC BUN/CREAT (test code = 25 RATIO [...] code = 2219) 51 U/L COMPREHENSIVE METABOLIC [id number] 00:00:00 Test Item Value Reference Range Interpretation Comments GLUCOSE (test code = 2217) 277 MG/DL BUN (test code = 2208) 26 MG/DL CREATININE (test code = 2214) 1.04 MG/DL eGFR AMER. (test code 77 ML/MIN/1.73 = 24871) eGFR NON- AMER. (test 66 ML/MIN/1.73 code = 58596) CALC BUN/CREAT (test code = 25 RATIO [...] (test code = 2219) 51 U/L CULTURE, [id number] 00:00:00 Test Item Value Reference Range Interpretation Comments CULTURE, URINE (test SPECIMEN NUMBER: code = 96746) [id number] CULTURE, [id number] 00:00:00 Test Item Value Reference Range Interpretation Comments CULTURE, URINE (test SPECIMEN NUMBER: code = 70305) [id number] CBC W/AUTO [id number] 00:00:00 Test Item Value Reference Range Interpretation [...] NUCLEATED RBCS (test code = 0.00 K/UL 40333) CBC W/AUTO [id number] 00:00:00 Test Item Value Reference Range Interpretation [...] NUCLEATED RBCS (test code = 0.00 K/UL 04889) CBC W/AUTO [id number] 00:00:00 Test Item Value Reference Range Interpretation [...] NUCLEATED RBCS (test code = 0.00 K/UL 10409) CBC W/AUTO [id number] 00:00:00 Test Item Value Reference Range Interpretation [...] NUCLEATED RBCS (test code = 0.00 K/UL 62014) CBC W/AUTO [id number] 00:00:00 Test Item Value Reference Range Interpretation [...] NUCLEATED RBCS (test code = 0.00 K/UL 91899) CBC W/AUTO [id number] 00:00:00 Test Item Value Reference Range Interpretation [...] NUCLEATED RBCS (test code = 0.00 K/UL 93623) CBC W/AUTO [id number] 00:00:00 Test Item Value Reference Range Interpretation [...] NUCLEATED RBCS (test code = 0.00 K/UL 00871) CBC W/AUTO [id number] 00:00:00 Test Item Value Reference Range Interpretation [...] NUCLEATED RBCS (test code = 0.00 K/UL 69692) CBC W/AUTO [id number] 00:00:00 Test Item Value Reference Range Interpretation [...] NUCLEATED RBCS (test code = 0.00 K/UL 84536) CBC W/AUTO [id number] 00:00:00 Test Item Value Reference Range Interpretation [...] NUCLEATED RBCS (test code = 0.00 K/UL 94720) CBC W/AUTO [id number] 00:00:00 Test Item Value Reference Range Interpretation [...] NUCLEATED RBCS (test code = 0.00 K/UL 99386) CBC W/AUTO [id number] 00:00:00 Test Item Value Reference Range Interpretation [...] NUCLEATED RBCS (test code = 0.00 K/UL 82641) CBC W/AUTO [id number] 00:00:00 Test Item Value Reference Range Interpretation [...] NUCLEATED RBCS (test code = 0.00 K/UL 76167) CBC W/AUTO [id number] 00:00:00 Test Item Value Reference Range Interpretation [...] NUCLEATED RBCS (test code = 0.00 K/UL 26251) CBC W/AUTO [id number] 00:00:00 Test Item Value Reference Range Interpretation [...] NUCLEATED RBCS (test code = 0.00 K/UL 26737) CBC W/AUTO [id number] 00:00:00 Test Item Value Reference Range Interpretation [...] NUCLEATED RBCS (test code = 0.00 K/UL 88111) CBC W/AUTO [id number] 00:00:00 Test Item Value Reference Range Interpretation [...] NUCLEATED RBCS (test code = 0.00 K/UL 74112) CBC W/AUTO [id number] 00:00:00 Test Item Value Reference Range Interpretation [...] NUCLEATED RBCS (test code = 0.00 K/UL 29360) CBC W/AUTO [id number] 00:00:00 Test Item Value Reference Range Interpretation [...] NUCLEATED RBCS (test code = 0.00 K/UL 28857) CBC W/AUTO [id number] 00:00:00 Test Item Value Reference Range Interpretation [...] NUCLEATED RBCS (test code = 0.00 K/UL 67899) CBC W/AUTO [id number] 00:00:00 Test Item Value Reference Range Interpretation [...] NUCLEATED RBCS (test code = 0.00 K/UL 10990) CBC W/AUTO [id number] 00:00:00 Test Item Value Reference Range Interpretation [...] NUCLEATED RBCS (test code = 0.00 K/UL 09082) CBC W/AUTO [id number] 00:00:00 Test Item Value Reference Range Interpretation [...] NUCLEATED RBCS (test code = 0.00 K/UL 76088) CBC W/AUTO [id number] 00:00:00 Test Item Value Reference Range Interpretation [...] NUCLEATED RBCS (test code = 0.00 K/UL 96311) CBC W/AUTO [id number] 00:00:00 Test Item Value Reference Range Interpretation [...] NUCLEATED RBCS (test code = 0.00 K/UL 68095) CBC W/AUTO [id number] 00:00:00 Test Item Value Reference Range Interpretation [...] NUCLEATED RBCS (test code = 0.00 K/UL 87402) CBC W/AUTO [id number] 00:00:00 Test Item Value Reference Range Interpretation [...] NUCLEATED RBCS (test code = 0.00 K/UL 39675) CBC W/AUTO [id number] 00:00:00 Test Item Value Reference Range Interpretation [...] NUCLEATED RBCS (test code = 0.00 K/UL 08954) CBC W/AUTO [id number] 00:00:00 Test Item Value Reference Range Interpretation [...] NUCLEATED RBCS (test code = 0.00 K/UL 83561) CBC W/AUTO [id number] 00:00:00 Test Item Value Reference Range Interpretation [...] NUCLEATED RBCS (test code = 0.00 K/UL 79662) CBC W/AUTO [id number] 00:00:00 Test Item Value Reference Range Interpretation [...] NUCLEATED RBCS (test code = 0.00 K/UL 22911) CBC W/AUTO [id number] 00:00:00 Test Item Value Reference Range Interpretation [...] NUCLEATED RBCS (test code = 0.00 K/UL 27758) VAGINAL PATHOGENS DNA [id number] 00:00:00 Test Item Value Reference Range Interpretation Comments ANDIE SPECIES (test code = ) NEGATIVE G. VAGINALIS (test code = 28017) NEGATIVE T. VAGINALIS (test code = 31273) NEGATIVE VAGINAL PATHOGENS DNA [id number] 00:00:00 Test Item Value Reference Range Interpretation Comments ANDIE SPECIES (test code = 07945) NEGATIVE G. VAGINALIS (test code = 00259) NEGATIVE T. VAGINALIS (test code = 58588) NEGATIVE VAGINAL PATHOGENS DNA [id number] 00:00:00 Test Item Value Reference Range Interpretation Comments ANDIE SPECIES (test code = 59506) NEGATIVE G. VAGINALIS (test code = 86392) NEGATIVE T. VAGINALIS (test code = 23669) NEGATIVE VAGINAL PATHOGENS DNA [id number] 00:00:00 Test Item Value Reference Range Interpretation Comments ANDIE SPECIES (test code = 75225) NEGATIVE G. VAGINALIS (test code = 83032) NEGATIVE T. VAGINALIS (test code = 25416) NEGATIVE VAGINAL PATHOGENS DNA [id number] 00:00:00 Test Item Value Reference Range Interpretation Comments ANDIE SPECIES (test code = 64801) NEGATIVE G. VAGINALIS (test code = 05953) NEGATIVE T. VAGINALIS (test code = 24020) NEGATIVE VAGINAL PATHOGENS DNA [id number] 00:00:00 Test Item Value Reference Range Interpretation Comments ANDIE SPECIES (test code = 65903) NEGATIVE G. VAGINALIS (test code = 28177) NEGATIVE T. VAGINALIS (test code = 17754) NEGATIVE VAGINAL PATHOGENS DNA [id number] 00:00:00 Test Item Value Reference Range Interpretation Comments ANDIE SPECIES (test code = 83416) NEGATIVE G. VAGINALIS (test code = 00799) NEGATIVE T. VAGINALIS (test code = 42287) NEGATIVE VAGINAL PATHOGENS DNA [id number] 00:00:00 Test Item Value Reference Range Interpretation Comments ANDIE SPECIES (test code = 81331) NEGATIVE G. VAGINALIS (test code = 44510) NEGATIVE T. VAGINALIS (test code = 09127) NEGATIVE VAGINAL PATHOGENS DNA [id number] 00:00:00 Test Item Value Reference Range Interpretation Comments ANDIE SPECIES (test code = 63155) NEGATIVE G. VAGINALIS (test code = 96006) NEGATIVE T. VAGINALIS (test code = 98292) NEGATIVE VAGINAL PATHOGENS DNA [id number] 00:00:00 Test Item Value Reference Range Interpretation Comments ANDIE SPECIES (test code = 57562) NEGATIVE G. VAGINALIS (test code = 77810) NEGATIVE T. VAGINALIS (test code = 11294) NEGATIVE VAGINAL PATHOGENS DNA [id number] 00:00:00 Test Item Value Reference Range Interpretation Comments ANDIE SPECIES (test code = 15120) NEGATIVE G. VAGINALIS (test code = 23048) NEGATIVE T. VAGINALIS (test code = 82590) NEGATIVE VAGINAL PATHOGENS DNA [id number] 00:00:00 Test Item Value Reference Range Interpretation Comments ANDIE SPECIES (test code = 89625) NEGATIVE G. VAGINALIS (test code = 00667) NEGATIVE T. VAGINALIS (test code = 13382) NEGATIVE VAGINAL PATHOGENS DNA [id number] 00:00:00 Test Item Value Reference Range Interpretation Comments ANDIE SPECIES (test code = 17005) NEGATIVE G. VAGINALIS (test code = 24670) NEGATIVE T. VAGINALIS (test code = 49003) NEGATIVE VAGINAL PATHOGENS DNA [id number] 00:00:00 Test Item Value Reference Range Interpretation Comments ANDIE SPECIES (test code = 88647) NEGATIVE G. VAGINALIS (test code = 15484) NEGATIVE T. VAGINALIS (test code = 88628) NEGATIVE VAGINAL PATHOGENS DNA [id number] 00:00:00 Test Item Value Reference Range Interpretation Comments ANDIE SPECIES (test code = 20781) NEGATIVE G. VAGINALIS (test code = 92278) NEGATIVE T. VAGINALIS (test code = 58938) NEGATIVE VAGINAL PATHOGENS DNA [id number] 00:00:00 Test Item Value Reference Range Interpretation Comments ANDIE SPECIES (test code = 53753) NEGATIVE G. VAGINALIS (test code = 24506) NEGATIVE T. VAGINALIS (test code = 28147) NEGATIVE VAGINAL PATHOGENS DNA [id number] 00:00:00 Test Item Value Reference Range Interpretation Comments ANDIE SPECIES (test code = 96089) NEGATIVE G. VAGINALIS (test code = 26325) NEGATIVE T. VAGINALIS (test code = 38048) NEGATIVE VAGINAL PATHOGENS DNA [id number] 00:00:00 Test Item Value Reference Range Interpretation Comments ANDIE SPECIES (test code = 50471) NEGATIVE G. VAGINALIS (test code = 21334) NEGATIVE T. VAGINALIS (test code = 11939) NEGATIVE VAGINAL PATHOGENS DNA [id number] 00:00:00 Test Item Value Reference Range Interpretation Comments ANDIE SPECIES (test code = 04032) NEGATIVE G. VAGINALIS (test code = 28865) NEGATIVE T. VAGINALIS (test code = 25670) NEGATIVE VAGINAL PATHOGENS DNA [id number] 00:00:00 Test Item Value Reference Range Interpretation Comments ANDIE SPECIES (test code = 00586) NEGATIVE G. VAGINALIS (test code = 39614) NEGATIVE T. VAGINALIS (test code = 89214) NEGATIVE VAGINAL PATHOGENS DNA [id number] 00:00:00 Test Item Value Reference Range Interpretation Comments ANDIE SPECIES (test code = 10423) NEGATIVE G. VAGINALIS (test code = 24691) NEGATIVE T. VAGINALIS (test code = 32776) NEGATIVE HEMOGLOBIN [id number] 00:00:00 Test Item Value Reference Range Interpretation Comments HEMOGLOBIN A1c (test code = 95141) 11.4 % HEMOGLOBIN [id number] 00:00:00 Test Item Value Reference Range Interpretation Comments HEMOGLOBIN A1c (test code = 26257) 11.4 % HEMOGLOBIN [id number] 00:00:00 Test Item Value Reference Range Interpretation Comments HEMOGLOBIN A1c (test code = 18039) 11.4 % LIPID [id number] 00:00:00 Test Item Value Reference Range Interpretation Comments CHOLESTEROL (test code = 2210) 162 MG/DL TRIGLYCERIDES (test code = 2232) 387 MG/DL HDL CHOLESTEROL (test code = 2220) 30 MG/DL CALC LDL CHOL (test code = 2237) 80 MG/DL RISK RATIO LDL/HDL (test code = 2.67 RATIO 2238) LIPID [id number] 00:00:00 Test Item Value Reference Range Interpretation Comments CHOLESTEROL (test code = 2210) 162 MG/DL TRIGLYCERIDES (test code = 2232) 387 MG/DL HDL CHOLESTEROL (test code = 2220) 30 MG/DL CALC LDL CHOL (test code = 2237) 80 MG/DL RISK RATIO LDL/HDL (test code = 2.67 RATIO 2238) COMPREHENSIVE METABOLIC [id number] 00:00:00 Test Item Value Reference Range Interpretation Comments GLUCOSE (test code = 2217) 236 MG/DL BUN (test code = 2208) 14 MG/DL CREATININE (test code = 2214) 0.71 MG/DL eGFR AMER. (test code 122 ML/MIN/1.73 = 44238) eGFR NON- AMER. (test 105 ML/MIN/1.73 code = 37399) CALC BUN/CREAT (test code = 20 RATIO [...] code = 2219) 69 U/L COMPREHENSIVE METABOLIC [id number] 00:00:00 Test Item Value Reference Range Interpretation Comments GLUCOSE (test code = 2217) 236 MG/DL BUN (test code = 2208) 14 MG/DL CREATININE (test code = 2214) 0.71 MG/DL eGFR AMER. (test code 122 ML/MIN/1.73 = 12605) eGFR NON- AMER. (test 105 ML/MIN/1.73 code = 38468) CALC BUN/CREAT (test code = 20 RATIO [...] (test code = 2219) 69 U/L HEMOGLOBIN [id number] 00:00:00 Test Item Value Reference Range Interpretation Comments HEMOGLOBIN A1c (test code = 60996) 11.4 % HEMOGLOBIN [id number] 00:00:00 Test Item Value Reference Range Interpretation Comments HEMOGLOBIN A1c (test code = 23918) 11.4 % HEMOGLOBIN [id number] 00:00:00 Test Item Value Reference Range Interpretation Comments HEMOGLOBIN A1c (test code = 97331) 11.4 % LIPID [id number] 00:00:00 Test Item Value Reference Range Interpretation Comments CHOLESTEROL (test code = 2210) 162 MG/DL TRIGLYCERIDES (test code = 2232) 387 MG/DL HDL CHOLESTEROL (test code = 2220) 30 MG/DL CALC LDL CHOL (test code = 2237) 80 MG/DL RISK RATIO LDL/HDL (test code = 2.67 RATIO 2238) LIPID [id number] 00:00:00 Test Item Value Reference Range Interpretation Comments CHOLESTEROL (test code = 2210) 162 MG/DL TRIGLYCERIDES (test code = 2232) 387 MG/DL HDL CHOLESTEROL (test code = 2220) 30 MG/DL CALC LDL CHOL (test code = 2237) 80 MG/DL RISK RATIO LDL/HDL (test code = 2.67 RATIO 2238) COMPREHENSIVE METABOLIC [id number] 00:00:00 Test Item Value Reference Range Interpretation Comments GLUCOSE (test code = 2217) 236 MG/DL BUN (test code = 2208) 14 MG/DL CREATININE (test code = 2214) 0.71 MG/DL eGFR AMER. (test code 122 ML/MIN/1.73 = 48548) eGFR NON- AMER. (test 105 ML/MIN/1.73 code = 84695) CALC BUN/CREAT (test code = 20 RATIO [...] = 0.4 MG/DL 220) ALKALINE PHOSPHATASE (test 55 U/L code = 2204) AST (test code = 2218) 38 U/L ALT (test code = 2219) 69 U/L COMPREHENSIVE METABOLIC [id number] 00:00:00 Test Item Value Reference Range Interpretation Comments GLUCOSE (test code = 2217) 236 MG/DL BUN (test code = 2208) 14 MG/DL CREATININE (test code = 2214) 0.71 MG/DL eGFR AMER. (test code 122 ML/MIN/1.73 = 39418) eGFR NON- AMER. (test 105 ML/MIN/1.73 code = 78378) CALC BUN/CREAT (test code = 20 RATIO [...] (test code = 2219) 69 U/L HEMOGLOBIN [id number] 00:00:00 Test Item Value Reference Range Interpretation Comments HEMOGLOBIN A1c (test code = 04256) 11.4 % HEMOGLOBIN [id number] 00:00:00 Test Item Value Reference Range Interpretation Comments HEMOGLOBIN A1c (test code = 99687) 11.4 % HEMOGLOBIN [id number] 00:00:00 Test Item Value Reference Range Interpretation Comments HEMOGLOBIN A1c (test code = 10782) 11.4 % LIPID [id number] 00:00:00 Test Item Value Reference Range Interpretation Comments CHOLESTEROL (test code = 2210) 162 MG/DL TRIGLYCERIDES (test code = 2232) 387 MG/DL HDL CHOLESTEROL (test code = 2220) 30 MG/DL CALC LDL CHOL (test code = 2237) 80 MG/DL RISK RATIO LDL/HDL (test code = 2.67 RATIO 2238) LIPID [id number] 00:00:00 Test Item Value Reference Range Interpretation Comments CHOLESTEROL (test code = 2210) 162 MG/DL TRIGLYCERIDES (test code = 2232) 387 MG/DL HDL CHOLESTEROL (test code = 2220) 30 MG/DL CALC LDL CHOL (test code = 2237) 80 MG/DL RISK RATIO LDL/HDL (test code = 2.67 RATIO 2238) COMPREHENSIVE METABOLIC [id number] 00:00:00 Test Item Value Reference Range Interpretation Comments GLUCOSE (test code = 2217) 236 MG/DL BUN (test code = 2208) 14 MG/DL CREATININE (test code = 2214) 0.71 MG/DL eGFR AMER. (test code 122 ML/MIN/1.73 = 43998) eGFR NON- AMER. (test 105 ML/MIN/1.73 code = 21365) CALC BUN/CREAT (test code = 20 RATIO [...] code = 2219) 69 U/L COMPREHENSIVE METABOLIC [id number] 00:00:00 Test Item Value Reference Range Interpretation Comments GLUCOSE (test code = 2217) 236 MG/DL BUN (test code = 2208) 14 MG/DL CREATININE (test code = 2214) 0.71 MG/DL eGFR AMER. (test code 122 ML/MIN/1.73 = 67142) eGFR NON- AMER. (test 105 ML/MIN/1.73 code = 73749) CALC BUN/CREAT (test code = 20 RATIO [...] (test code = 2219) 69 U/L HEMOGLOBIN [id number] 00:00:00 Test Item Value Reference Range Interpretation Comments HEMOGLOBIN A1c (test code = 90833) 11.4 % HEMOGLOBIN [id number] 00:00:00 Test Item Value Reference Range Interpretation Comments HEMOGLOBIN A1c (test code = 31649) 11.4 % HEMOGLOBIN [id number] 00:00:00 Test Item Value Reference Range Interpretation Comments HEMOGLOBIN A1c (test code = 09612) 11.4 % LIPID [id number] 00:00:00 Test Item Value Reference Range Interpretation Comments CHOLESTEROL (test code = 2210) 162 MG/DL TRIGLYCERIDES (test code = 2232) 387 MG/DL HDL CHOLESTEROL (test code = 2220) 30 MG/DL CALC LDL CHOL (test code = 2237) 80 MG/DL RISK RATIO LDL/HDL (test code = 2.67 RATIO 2238) LIPID [id number] 00:00:00 Test Item Value Reference Range Interpretation Comments CHOLESTEROL (test code = 2210) 162 MG/DL TRIGLYCERIDES (test code = 2232) 387 MG/DL HDL CHOLESTEROL (test code = 2220) 30 MG/DL CALC LDL CHOL (test code = 2237) 80 MG/DL RISK RATIO LDL/HDL (test code = 2.67 RATIO 2238) COMPREHENSIVE METABOLIC [id number] 00:00:00 Test Item Value Reference Range Interpretation Comments GLUCOSE (test code = 2217) 236 MG/DL BUN (test code = 2208) 14 MG/DL CREATININE (test code = 2214) 0.71 MG/DL eGFR AMER. (test code 122 ML/MIN/1.73 = 84821) eGFR NON- AMER. (test 105 ML/MIN/1.73 code = 40663) CALC BUN/CREAT (test code = 20 RATIO [...] code = 2219) 69 U/L COMPREHENSIVE METABOLIC [id number] 00:00:00 Test Item Value Reference Range Interpretation Comments GLUCOSE (test code = 2217) 236 MG/DL BUN (test code = 2208) 14 MG/DL CREATININE (test code = 2214) 0.71 MG/DL eGFR AMER. (test code 122 ML/MIN/1.73 = 79009) eGFR NON- AMER. (test 105 ML/MIN/1.73 code = 86879) CALC BUN/CREAT (test code = 20 RATIO [...] (test code = 2219) 69 U/L HEMOGLOBIN [id number] 00:00:00 Test Item Value Reference Range Interpretation Comments HEMOGLOBIN A1c (test code = 50430) 11.4 % HEMOGLOBIN [id number] 00:00:00 Test Item Value Reference Range Interpretation Comments HEMOGLOBIN A1c (test code = 70158) 11.4 % HEMOGLOBIN [id number] 00:00:00 Test Item Value Reference Range Interpretation Comments HEMOGLOBIN A1c (test code = 08396) 11.4 % LIPID [id number] 00:00:00 Test Item Value Reference Range Interpretation Comments CHOLESTEROL (test code = 2210) 162 MG/DL TRIGLYCERIDES (test code = 2232) 387 MG/DL HDL CHOLESTEROL (test code = 2220) 30 MG/DL CALC LDL CHOL (test code = 2237) 80 MG/DL RISK RATIO LDL/HDL (test code = 2.67 RATIO 2238) LIPID [id number] 00:00:00 Test Item Value Reference Range Interpretation Comments CHOLESTEROL (test code = 2210) 162 MG/DL TRIGLYCERIDES (test code = 2232) 387 MG/DL HDL CHOLESTEROL (test code = 2220) 30 MG/DL CALC LDL CHOL (test code = 2237) 80 MG/DL RISK RATIO LDL/HDL (test code = 2.67 RATIO 2238) COMPREHENSIVE METABOLIC [id number] 00:00:00 Test Item Value Reference Range Interpretation Comments GLUCOSE (test code = 2217) 236 MG/DL BUN (test code = 2208) 14 MG/DL CREATININE (test code = 2214) 0.71 MG/DL eGFR AMER. (test code 122 ML/MIN/1.73 = 18954) eGFR NON- AMER. (test 105 ML/MIN/1.73 code = 75139) CALC BUN/CREAT (test code = 20 RATIO [...] code = 2219) 69 U/L COMPREHENSIVE METABOLIC [id number] 00:00:00 Test Item Value Reference Range Interpretation Comments GLUCOSE (test code = 2217) 236 MG/DL BUN (test code = 2208) 14 MG/DL CREATININE (test code = 2214) 0.71 MG/DL eGFR AMER. (test code 122 ML/MIN/1.73 = 17968) eGFR NON- AMER. (test 105 ML/MIN/1.73 code [...] (test code = 2219) 69 U/L HEMOGLOBIN [id number] 00:00:00 Test Item Value Reference Range Interpretation Comments HEMOGLOBIN A1c (test code = 06133) 11.4 % HEMOGLOBIN [id number] 00:00:00 Test Item Value Reference Range Interpretation Comments HEMOGLOBIN A1c (test code = 95398) 11.4 % HEMOGLOBIN [id number] 00:00:00 Test Item Value Reference Range Interpretation Comments HEMOGLOBIN A1c (test code = 31310) 11.4 % LIPID [id number] 00:00:00 Test Item Value Reference Range Interpretation Comments CHOLESTEROL (test code = 2210) 162 MG/DL TRIGLYCERIDES (test code = 2232) 387 MG/DL HDL CHOLESTEROL (test code = 2220) 30 MG/DL CALC LDL CHOL (test code = 2237) 80 MG/DL RISK RATIO LDL/HDL (test code = 2.67 RATIO 2238) LIPID [id number] 00:00:00 Test Item Value Reference Range Interpretation Comments CHOLESTEROL (test code = 2210) 162 MG/DL TRIGLYCERIDES (test code = 2232) 387 MG/DL HDL CHOLESTEROL (test code = 2220) 30 MG/DL CALC LDL CHOL (test code = 2237) 80 MG/DL RISK RATIO LDL/HDL (test code = 2.67 RATIO 2238) COMPREHENSIVE METABOLIC [id number] 00:00:00 Test Item Value Reference Range Interpretation Comments GLUCOSE (test code = 2217) 236 MG/DL BUN (test code = 2208) 14 MG/DL CREATININE (test code = 2214) 0.71 MG/DL eGFR AMER. (test code 122 ML/MIN/1.73 = 00712) eGFR NON- AMER. (test 105 ML/MIN/1.73 code = 96241) CALC BUN/CREAT (test code = 20 RATIO [...] code = 2219) 69 U/L COMPREHENSIVE METABOLIC [id number] 00:00:00 Test Item Value Reference Range Interpretation Comments GLUCOSE (test code = 2217) 236 MG/DL BUN (test code = 2208) 14 MG/DL CREATININE (test code = 2214) 0.71 MG/DL eGFR AMER. (test code 122 ML/MIN/1.73 = 28998) eGFR NON- AMER. (test 105 ML/MIN/1.73 code = 03357) CALC BUN/CREAT (test code = 20 RATIO [...] (test code = 2219) 69 U/L HEMOGLOBIN [id number] 00:00:00 Test Item Value Reference Range Interpretation Comments HEMOGLOBIN A1c (test code = 67224) 11.4 % HEMOGLOBIN [id number] 00:00:00 Test Item Value Reference Range Interpretation Comments HEMOGLOBIN A1c (test code = 53717) 11.4 % HEMOGLOBIN [id number] 00:00:00 Test Item Value Reference Range Interpretation Comments HEMOGLOBIN A1c (test code = 37729) 11.4 % LIPID [id number] 00:00:00 Test Item Value Reference Range Interpretation Comments CHOLESTEROL (test code = 2210) 162 MG/DL TRIGLYCERIDES (test code = 2232) 387 MG/DL HDL CHOLESTEROL (test code = 2220) 30 MG/DL CALC LDL CHOL (test code = 2237) 80 MG/DL RISK RATIO LDL/HDL (test code = 2.67 RATIO 2238) LIPID [id number] 00:00:00 Test Item Value Reference Range Interpretation Comments CHOLESTEROL (test code = 2210) 162 MG/DL TRIGLYCERIDES (test code = 2232) 387 MG/DL HDL CHOLESTEROL (test code = 2220) 30 MG/DL CALC LDL CHOL (test code = 2237) 80 MG/DL RISK RATIO LDL/HDL (test code = 2.67 RATIO 2238) HEMOGLOBIN [id number] 00:00:00 Test Item Value Reference Range Interpretation Comments HEMOGLOBIN A1c (test code = 26390) 11.4 % COMPREHENSIVE METABOLIC [id number] 00:00:00 Test Item Value Reference Range Interpretation Comments GLUCOSE (test code = 2217) 236 MG/DL BUN (test code = 2208) 14 MG/DL CREATININE (test code = 2214) 0.71 MG/DL eGFR AMER. (test code 122 ML/MIN/1.73 = 40887) eGFR NON- AMER. (test 105 ML/MIN/1.73 code = 24268) CALC BUN/CREAT (test code = 20 RATIO [...] code = 2219) 69 U/L COMPREHENSIVE METABOLIC [id number] 00:00:00 Test Item Value Reference Range Interpretation Comments GLUCOSE (test code = 2217) 236 MG/DL BUN (test code = 2208) 14 MG/DL CREATININE (test code = 2214) 0.71 MG/DL eGFR AMER. (test code 122 ML/MIN/1.73 = 98105) eGFR NON- AMER. (test 105 ML/MIN/1.73 code = 39710) CALC BUN/CREAT (test code = 20 RATIO [...] (test code = 2219) 69 U/L HEMOGLOBIN [id number] 00:00:00 Test Item Value Reference Range Interpretation Comments HEMOGLOBIN A1c (test code = 82684) 11.4 % LIPID [id number] 00:00:00 Test Item Value Reference Range Interpretation Comments CHOLESTEROL (test code = 2210) 162 MG/DL TRIGLYCERIDES (test code = 2232) 387 MG/DL HDL CHOLESTEROL (test code = 2220) 30 MG/DL CALC LDL CHOL (test code = 2237) 80 MG/DL RISK RATIO LDL/HDL (test code = 2.67 RATIO 2238) COMPREHENSIVE METABOLIC [id number] 00:00:00 Test Item Value Reference Range Interpretation Comments GLUCOSE (test code = 2217) 236 MG/DL BUN (test code = 2208) 14 MG/DL CREATININE (test code = 2214) 0.71 MG/DL eGFR AMER. (test code 122 ML/MIN/1.73 = 55118) eGFR NON- AMER. (test 105 ML/MIN/1.73 code = 01669) CALC BUN/CREAT (test code = 20 RATIO [...] (test code = 2219) 69 U/L HEMOGLOBIN [id number] 00:00:00 Test Item Value Reference Range Interpretation Comments HEMOGLOBIN A1c (test code = 13610) 11.4 % HEMOGLOBIN [id number] 00:00:00 Test Item Value Reference Range Interpretation Comments HEMOGLOBIN A1c (test code = 07561) 11.4 % HEMOGLOBIN [id number] 00:00:00 Test Item Value Reference Range Interpretation Comments HEMOGLOBIN A1c (test code = 27574) 11.4 % LIPID [id number] 00:00:00 Test Item Value Reference Range Interpretation Comments CHOLESTEROL (test code = 2210) 162 MG/DL TRIGLYCERIDES (test code = 2232) 387 MG/DL HDL CHOLESTEROL (test code = 2220) 30 MG/DL CALC LDL CHOL (test code = 2237) 80 MG/DL RISK RATIO LDL/HDL (test code = 2.67 RATIO 2238) LIPID [id number] 00:00:00 Test Item Value Reference Range Interpretation Comments CHOLESTEROL (test code = 2210) 162 MG/DL TRIGLYCERIDES (test code = 2232) 387 MG/DL HDL CHOLESTEROL (test code = 2220) 30 MG/DL CALC LDL CHOL (test code = 2237) 80 MG/DL RISK RATIO LDL/HDL (test code = 2.67 RATIO 2238) COMPREHENSIVE METABOLIC [id number] 00:00:00 Test Item Value Reference Range Interpretation Comments GLUCOSE (test code = 2217) 236 MG/DL BUN (test code = 2208) 14 MG/DL CREATININE (test code = 2214) 0.71 MG/DL eGFR AMER. (test code 122 ML/MIN/1.73 = 20391) eGFR NON- AMER. (test 105 ML/MIN/1.73 code = 84681) CALC BUN/CREAT (test code = 20 RATIO [...] = 0.4 MG/DL 220) ALKALINE PHOSPHATASE (test 55 U/L code = 2204) AST (test code = 2218) 38 U/L ALT (test code = 2219) 69 U/L COMPREHENSIVE METABOLIC [id number] 00:00:00 Test Item Value Reference Range Interpretation Comments GLUCOSE (test code = 2217) 236 MG/DL BUN (test code = 2208) 14 MG/DL CREATININE (test code = 2214) 0.71 MG/DL eGFR AMER. (test code 122 ML/MIN/1.73 = 47979) eGFR NON- AMER. (test 105 ML/MIN/1.73 code = 05098) CALC BUN/CREAT (test code = 20 RATIO [...] (test code = 2219) 69 U/L HEMOGLOBIN [id number] 00:00:00 Test Item Value Reference Range Interpretation Comments HEMOGLOBIN A1c (test code = 78853) 11.4 % HEMOGLOBIN [id number] 00:00:00 Test Item Value Reference Range Interpretation Comments HEMOGLOBIN A1c (test code = 05569) 11.4 % HEMOGLOBIN [id number] 00:00:00 Test Item Value Reference Range Interpretation Comments HEMOGLOBIN A1c (test code = 32891) 11.4 % LIPID [id number] 00:00:00 Test Item Value Reference Range Interpretation Comments CHOLESTEROL (test code = 2210) 162 MG/DL TRIGLYCERIDES (test code = 2232) 387 MG/DL HDL CHOLESTEROL (test code = 2220) 30 MG/DL CALC LDL CHOL (test code = 2237) 80 MG/DL RISK RATIO LDL/HDL (test code = 2.67 RATIO 2238) LIPID [id number] 00:00:00 Test Item Value Reference Range Interpretation Comments CHOLESTEROL (test code = 2210) 162 MG/DL TRIGLYCERIDES (test code = 2232) 387 MG/DL HDL CHOLESTEROL (test code = 2220) 30 MG/DL CALC LDL CHOL (test code = 2237) 80 MG/DL RISK RATIO LDL/HDL (test code = 2.67 RATIO 2238) COMPREHENSIVE METABOLIC [id number] 00:00:00 Test Item Value Reference Range Interpretation Comments GLUCOSE (test code = 2217) 236 MG/DL BUN (test code = 2208) 14 MG/DL CREATININE (test code = 2214) 0.71 MG/DL eGFR AMER. (test code 122 ML/MIN/1.73 = 18896) eGFR NON- AMER. (test 105 ML/MIN/1.73 code = 44006) CALC BUN/CREAT (test code = 20 RATIO [...] code = 2219) 69 U/L COMPREHENSIVE METABOLIC [id number] 00:00:00 Test Item Value Reference Range Interpretation Comments GLUCOSE (test code = 2217) 236 MG/DL BUN (test code = 2208) 14 MG/DL CREATININE (test code = 2214) 0.71 MG/DL eGFR AMER. (test code 122 ML/MIN/1.73 = 18027) eGFR NON- AMER. (test 105 ML/MIN/1.73 code = 60980) CALC BUN/CREAT (test code = 20 RATIO [...] (test code = 2219) 69 U/L HEMOGLOBIN [id number] 00:00:00 Test Item Value Reference Range Interpretation Comments HEMOGLOBIN A1c (test code = 65139) 11.4 % HEMOGLOBIN [id number] 00:00:00 Test Item Value Reference Range Interpretation Comments HEMOGLOBIN A1c (test code = 58472) 11.4 % HEMOGLOBIN [id number] 00:00:00 Test Item Value Reference Range Interpretation Comments HEMOGLOBIN A1c (test code = 33569) 11.4 % LIPID [id number] 00:00:00 Test Item Value Reference Range Interpretation Comments CHOLESTEROL (test code = 2210) 162 MG/DL TRIGLYCERIDES (test code = 2232) 387 MG/DL HDL CHOLESTEROL (test code = 2220) 30 MG/DL CALC LDL CHOL (test code = 2237) 80 MG/DL RISK RATIO LDL/HDL (test code = 2.67 RATIO 2238) LIPID [id number] 00:00:00 Test Item Value Reference Range Interpretation Comments CHOLESTEROL (test code = 2210) 162 MG/DL TRIGLYCERIDES (test code = 2232) 387 MG/DL HDL CHOLESTEROL (test code = 2220) 30 MG/DL CALC LDL CHOL (test code = 2237) 80 MG/DL RISK RATIO LDL/HDL (test code = 2.67 RATIO 2238) COMPREHENSIVE METABOLIC [id number] 00:00:00 Test Item Value Reference Range Interpretation Comments GLUCOSE (test code = 2217) 236 MG/DL BUN (test code = 2208) 14 MG/DL CREATININE (test code = 2214) 0.71 MG/DL eGFR AMER. (test code 122 ML/MIN/1.73 = 92729) eGFR NON- AMER. (test 105 ML/MIN/1.73 code = 56975) CALC BUN/CREAT (test code = 20 RATIO [...] code = 2219) 69 U/L COMPREHENSIVE METABOLIC [id number] 00:00:00 Test Item Value Reference Range Interpretation Comments GLUCOSE (test code = 2217) 236 MG/DL BUN (test code = 2208) 14 MG/DL CREATININE (test code = 2214) 0.71 MG/DL eGFR AMER. (test code 122 ML/MIN/1.73 = 75829) eGFR NON- AMER. (test 105 ML/MIN/1.73 code = 25709) CALC BUN/CREAT (test code = 20 RATIO [...] U/L - CT UP EXTREM W/O CONT [id number] 08:37:00 [facility] 1980 Sex: F PatientName: MARGE FRANCO Unit No: [id number] EXAMS: CPT CODE: [id number] [place] EXTREM W/[place] [address] [place] SCAN LEFT WRIST WITH RECONSTRUCTION DIAGNOSIS: [...] with ACR practice standards and adherence to it professional's recommendations. INDICATION: LEFT WRIST SPRAIN, POSSIBLE SCAPHOID FRACTURE COMPARISON: None. COMMENT: Findings are as described above. at 0837 Reported and signed by: America Schuler MD CC: Bebeto Quiroga MD Technologist: KAVEH WYMAN MRI CTDI: DLP: Trnscrpt: 08/11/2020 (0837) [facility] NAME: MARGE FRANCO [address] PHYS: Bebeto Valiente MD : 1980 AGE: 40 SEX:F [place], [place] [address] LOC: Y.RAD PHONE #: [phone] EXAM DATE: 08/08/2020 STATUS: ALEX CLI FAX #: [phone] RAD #: D/C DT PAGE 1 Signed Report Patient Name: MARGE FRANCO Unit No: [id number] EXAMS: CPT CODE: [id number] [place] EXTREM W/[place] [address] (Continued) Orig Print D/T: S: 08/11/2020 (0840) [facility] NAME: MARGE FRANCO [address] [facility] [address] PHYS: Bebeto Valiente MD : 1980 AGE: 40 SEX: F [place], [place] [address] LOC: Y.RAD PHONE #: [phone] EXAM DATE: 08/08/2020 STATUS: DEP CLI FAX #: [phone] RAD #: D/C DT PAGE 2 Signed ReportCULTURE, [id number] 00:00:00 Test Item Value Reference Range Interpretation Comments CULTURE, URINE (test SPECIMEN NUMBER: code = 83871) [id number] CULTURE, [id number] 00:00:00 Test Item Value Reference Range Interpretation Comments CULTURE, URINE (test SPECIMEN NUMBER: code = 30786) [id number] CULTURE, [id number] 00:00:00 Test Item Value Reference Range Interpretation Comments CULTURE, URINE (test SPECIMEN NUMBER: code = 88053) [id number] CULTURE, [id number] 00:00:00 Test Item Value Reference Range Interpretation Comments CULTURE, URINE (test SPECIMEN NUMBER: code = 66162) [id number] CULTURE, [id number] 00:00:00 Test Item Value Reference Range Interpretation Comments CULTURE, URINE (test SPECIMEN NUMBER: code = 76907) [id number] CULTURE, [id number] 00:00:00 Test Item Value Reference Range Interpretation Comments CULTURE, URINE (test SPECIMEN NUMBER: code = 23055) [id number] CULTURE, [id number] 00:00:00 Test Item Value Reference Range Interpretation Comments CULTURE, URINE (test SPECIMEN NUMBER: code = 26165) [id number] CULTURE, [id number] 00:00:00 Test Item Value Reference Range Interpretation Comments CULTURE, URINE (test SPECIMEN NUMBER: code = 64341) [id number] CULTURE, [id number] 00:00:00 Test Item Value Reference Range Interpretation Comments CULTURE, URINE (test SPECIMEN NUMBER: code = 36471) [id number] CULTURE, [id number] 00:00:00 Test Item Value Reference Range Interpretation Comments CULTURE, URINE (test SPECIMEN NUMBER: code = 67266) [id number] CULTURE, [id number] 00:00:00 Test Item Value Reference Range Interpretation Comments CULTURE, URINE (test SPECIMEN NUMBER: code = 26034) [id number] CULTURE, [id number] 00:00:00 Test Item Value Reference Range Interpretation Comments CULTURE, URINE (test SPECIMEN NUMBER: code = 75764) [id number] CULTURE, [id number] 00:00:00 Test Item Value Reference Range Interpretation Comments CULTURE, URINE (test SPECIMEN NUMBER: code = 66555) [id number] CULTURE, [id number] 00:00:00 Test Item Value Reference Range Interpretation Comments CULTURE, URINE (test SPECIMEN NUMBER: code = 63867) [id number] CULTURE, [id number] 00:00:00 Test Item Value Reference Range Interpretation Comments CULTURE, URINE (test SPECIMEN NUMBER: code = 59985) [id number] CULTURE, [id number] 00:00:00 Test Item Value Reference Range Interpretation Comments CULTURE, URINE (test SPECIMEN NUMBER: code = 41615) [id number] CULTURE, [id number] 00:00:00 Test Item Value Reference Range Interpretation Comments CULTURE, URINE (test SPECIMEN NUMBER: code = 02954) [id number] CULTURE, [id number] 00:00:00 Test Item Value Reference Range Interpretation Comments CULTURE, URINE (test SPECIMEN NUMBER: code = 97298) [id number] CULTURE, [id number] 00:00:00 Test Item Value Reference Range Interpretation Comments CULTURE, URINE (test SPECIMEN NUMBER: code = 81542) [id number] CULTURE, [id number] 00:00:00 Test Item Value Reference Range Interpretation Comments CULTURE, URINE (test SPECIMEN NUMBER: code = 29734) [id number] CULTURE, [id number] 00:00:00 Test Item Value Reference Range Interpretation Comments CULTURE, URINE (test SPECIMEN NUMBER: code = 53628) [id number] VAGINAL PATHOGENS DNA [id number] 00:00:00 Test Item Value Reference Range Interpretation Comments ANDIE SPECIES (test code = ) NEGATIVE G. VAGINALIS (test code = ) NEGATIVE T. VAGINALIS (test code = ) NEGATIVE VAGINAL PATHOGENS DNA [id number] 00:00:00 Test Item Value Reference Range Interpretation Comments ANDIE SPECIES (test code = 76815) NEGATIVE G. VAGINALIS (test code = 97371) NEGATIVE T. VAGINALIS (test code = 48684) NEGATIVE VAGINAL PATHOGENS DNA [id number] 00:00:00 Test Item Value Reference Range Interpretation Comments ANDIE SPECIES (test code = 13249) NEGATIVE G. VAGINALIS (test code = 95185) NEGATIVE T. VAGINALIS (test code = 70169) NEGATIVE VAGINAL PATHOGENS DNA [id number] 00:00:00 Test Item Value Reference Range Interpretation Comments ANDIE SPECIES (test code = 36071) NEGATIVE G. VAGINALIS (test code = 97830) NEGATIVE T. VAGINALIS (test code = 59261) NEGATIVE VAGINAL PATHOGENS DNA [id number] 00:00:00 Test Item Value Reference Range Interpretation Comments ANDIE SPECIES (test code = 51926) NEGATIVE G. VAGINALIS (test code = 88346) NEGATIVE T. VAGINALIS (test code = 55845) NEGATIVE VAGINAL PATHOGENS DNA [id number] 00:00:00 Test Item Value Reference Range Interpretation Comments ANDIE SPECIES (test code = 61289) NEGATIVE G. VAGINALIS (test code = 74122) NEGATIVE T. VAGINALIS (test code = 60400) NEGATIVE VAGINAL PATHOGENS DNA [id number] 00:00:00 Test Item Value Reference Range Interpretation Comments ANDIE SPECIES (test code = 63442) NEGATIVE G. VAGINALIS (test code = 91647) NEGATIVE T. VAGINALIS (test code = 26667) NEGATIVE VAGINAL PATHOGENS DNA [id number] 00:00:00 Test Item Value Reference Range Interpretation Comments ANDIE SPECIES (test code = 90997) NEGATIVE G. VAGINALIS (test code = 83948) NEGATIVE T. VAGINALIS (test code = 88251) NEGATIVE VAGINAL PATHOGENS DNA [id number] 00:00:00 Test Item Value Reference Range Interpretation Comments ANDIE SPECIES (test code = 66678) NEGATIVE G. VAGINALIS (test code = 62496) NEGATIVE T. VAGINALIS (test code = 49282) NEGATIVE VAGINAL PATHOGENS DNA [id number] 00:00:00 Test Item Value Reference Range Interpretation Comments ANDIE SPECIES (test code = 83998) NEGATIVE G. VAGINALIS (test code = 17058) NEGATIVE T. VAGINALIS (test code = 05778) NEGATIVE VAGINAL PATHOGENS DNA [id number] 00:00:00 Test Item Value Reference Range Interpretation Comments ANDIE SPECIES (test code = 78250) NEGATIVE G. VAGINALIS (test code = 38335) NEGATIVE T. VAGINALIS (test code = 31554) NEGATIVE VAGINAL PATHOGENS DNA [id number] 00:00:00 Test Item Value Reference Range Interpretation Comments ANDIE SPECIES (test code = 53819) NEGATIVE G. VAGINALIS (test code = 47352) NEGATIVE T. VAGINALIS (test code = 62329) NEGATIVE VAGINAL PATHOGENS DNA [id number] 00:00:00 Test Item Value Reference Range Interpretation Comments ANDIE SPECIES (test code = 72952) NEGATIVE G. VAGINALIS (test code = 51675) NEGATIVE T. VAGINALIS (test code = 06828) NEGATIVE VAGINAL PATHOGENS DNA [id number] 00:00:00 Test Item Value Reference Range Interpretation Comments ANDIE SPECIES (test code = 91262) NEGATIVE G. VAGINALIS (test code = 37168) NEGATIVE T. VAGINALIS (test code = 71132) NEGATIVE VAGINAL PATHOGENS DNA [id number] 00:00:00 Test Item Value Reference Range Interpretation Comments ANDIE SPECIES (test code = 84402) NEGATIVE G. VAGINALIS (test code = 75518) NEGATIVE T. VAGINALIS (test code = 90807) NEGATIVE VAGINAL PATHOGENS DNA [id number] 00:00:00 Test Item Value Reference Range Interpretation Comments ANDIE SPECIES (test code = 73583) NEGATIVE G. VAGINALIS (test code = 94165) NEGATIVE T. VAGINALIS (test code = 50193) NEGATIVE VAGINAL PATHOGENS DNA [id number] 00:00:00 Test Item Value Reference Range Interpretation Comments ANDIE SPECIES (test code = 94392) NEGATIVE G. VAGINALIS (test code = 06739) NEGATIVE T. VAGINALIS (test code = 09539) NEGATIVE VAGINAL PATHOGENS DNA [id number] 00:00:00 Test Item Value Reference Range Interpretation Comments ANDIE SPECIES (test code = 28900) NEGATIVE G. VAGINALIS (test code = 78339) NEGATIVE T. VAGINALIS (test code = 21286) NEGATIVE VAGINAL PATHOGENS DNA [id number] 00:00:00 Test Item Value Reference Range Interpretation Comments ANDIE SPECIES (test code = 73618) NEGATIVE G. VAGINALIS (test code = 73111) NEGATIVE T. VAGINALIS (test code = ) NEGATIVE VAGINAL PATHOGENS DNA [id number] 00:00:00 Test Item Value Reference Range Interpretation Comments ANDIE SPECIES (test code = ) NEGATIVE G. VAGINALIS (test code = 57295) NEGATIVE T. VAGINALIS (test code = 74357) NEGATIVE VAGINAL PATHOGENS DNA [id number] 00:00:00 Test Item Value Reference Range Interpretation Comments ANDIE SPECIES (test code = ) NEGATIVE G. VAGINALIS (test code = 73649) NEGATIVE T. VAGINALIS (test code = 58356) NEGATIVE - XR FOREARM 2 VIEWS [id number] 09:10:00 [facility] 1980 Sex: F PatientName: MARGE FRANCO Unit No: [id number] EXAMS: CPT CODE: [id number] XR FORE[place] [address] [place] [address] Left forearm and wrist 4 views COMMENT: There is no evidence for fracture or subluxation. No focal bonylesions are seen. at 0910 Reported and signed by: Prasad Marina MD CC: Rafy Ferguson MD Technologist: Marie Johnson(R) Transcribed D/ (09) [facility] NAME: MARGE FRANCO [address] PHYS: HAMST.Rell - Rafy Ferguson : 1980 AGE: 40 SEX: F [place], [place] [address] LOC: TEOFILO PHONE #: [phone] EXAM DATE: 08/02/2020 STATUS: DEP ER FAX #: [phone] RAD #: D/C DT PAGE 1 Signed Report Patient Name: MARGE FRANCO Unit No: [id number] EXAMS: CPT CODE: [id number] XR FOREARM [address] [place] [address] (Continued) Orig Print D/T: S: 08/04/2020 (0914) [facility] NAME: MARGE FRANCO [address] [facility] PHYS: HAMST.Rell - Rafy Ferguson Erin : 1980 AGE: 40 SEX: F [place] [address] LOC: TEOFILO PHONE #: [phone] EXAM DATE: 08/02/2020 STATUS: DEP ER FAX #: [phone] RAD #: D/C DT PAGE 2 SignedReportCULTURE, [id number] 00:00:00 Test Item Value Reference Range Interpretation Comments CULTURE, URINE (test SPECIMEN NUMBER: code = 82488) [id number] CULTURE, [id number] 00:00:00 Test Item Value Reference Range Interpretation Comments CULTURE, URINE (test SPECIMEN NUMBER: code = 57187) [id number] CULTURE, [id number] 00:00:00 Test Item Value Reference Range Interpretation Comments CULTURE, URINE (test SPECIMEN NUMBER: code = 24093) [id number] CULTURE, [id number] 00:00:00 Test Item Value Reference Range Interpretation Comments CULTURE, URINE (test SPECIMEN NUMBER: code = 22528) [id number] CULTURE, [id number] 00:00:00 Test Item Value Reference Range Interpretation Comments CULTURE, URINE (test SPECIMEN NUMBER: code = 35504) [id number] CULTURE, [id number] 00:00:00 Test Item Value Reference Range Interpretation Comments CULTURE, URINE (test SPECIMEN NUMBER: code = 18482) [id number] CULTURE, [id number] 00:00:00 Test Item Value Reference Range Interpretation Comments CULTURE, URINE (test SPECIMEN NUMBER: code = 50628) [id number] CULTURE, [id number] 00:00:00 Test Item Value Reference Range Interpretation Comments CULTURE, URINE (test SPECIMEN NUMBER: code = 36646) [id number] CULTURE, [id number] 00:00:00 Test Item Value Reference Range Interpretation Comments CULTURE, URINE (test SPECIMEN NUMBER: code = 77280) [id number] CULTURE, [id number] 00:00:00 Test Item Value Reference Range Interpretation Comments CULTURE, URINE (test SPECIMEN NUMBER: code = 65423) [id number] CULTURE, [id number] 00:00:00 Test Item Value Reference Range Interpretation Comments CULTURE, URINE (test SPECIMEN NUMBER: code = 41382) [id number] CULTURE, [id number] 00:00:00 Test Item Value Reference Range Interpretation Comments CULTURE, URINE (test SPECIMEN NUMBER: code = 05448) [id number] CULTURE, [id number] 00:00:00 Test Item Value Reference Range Interpretation Comments CULTURE, URINE (test SPECIMEN NUMBER: code = 10195) [id number] CULTURE, [id number] 00:00:00 Test Item Value Reference Range Interpretation Comments CULTURE, URINE (test SPECIMEN NUMBER: code = 29463) [id number] CULTURE, [id number] 00:00:00 Test Item Value Reference Range Interpretation Comments CULTURE, URINE (test SPECIMEN NUMBER: code = 48611) [id number] CULTURE, [id number] 00:00:00 Test Item Value Reference Range Interpretation Comments CULTURE, URINE (test SPECIMEN NUMBER: code = 84845) [id number] CULTURE, [id number] 00:00:00 Test Item Value Reference Range Interpretation Comments CULTURE, URINE (test SPECIMEN NUMBER: code = 93538) [id number] CULTURE, [id number] 00:00:00 Test Item Value Reference Range Interpretation Comments CULTURE, URINE (test SPECIMEN NUMBER: code = 09904) [id number] CULTURE, [id number] 00:00:00 Test Item Value Reference Range Interpretation Comments CULTURE, URINE (test SPECIMEN NUMBER: code = 42916) [id number] CULTURE, [id number] 00:00:00 Test Item Value Reference Range Interpretation Comments CULTURE, URINE (test SPECIMEN NUMBER: code = 50488) [id number] CULTURE, [id number] 00:00:00 Test Item Value Reference Range Interpretation Comments CULTURE, URINE (test SPECIMEN NUMBER: code = 47929) [id number] SARS-CoV-2 (COVID-19) by RT-PCR (HIGH RISK)2020-04-23 00:00:00 Test Item Value Reference Range Interpretation Comments SARS-CoV-2 INTERPRETATION Negative (test code = 65732) SOURCE (test code = 24625) Nasal_Swab_in_VTM__ UTM SARS-CoV-2 (COVID-19) by RT-PCR (HIGH RISK)2020-04-23 00:00:00 Test Item Value Reference Range Interpretation Comments SARS-CoV-2 INTERPRETATION Negative (test code = 96549) SOURCE (test code = 89781) Nasal_Swab_in_VTM__ UTM SARS-CoV-2 (COVID-19) by RT-PCR (HIGH RISK)2020-04-23 00:00:00 Test Item Value Reference Range Interpretation Comments SARS-CoV-2 INTERPRETATION Negative (test code = 90538) SOURCE (test code = 41483) Nasal_Swab_in_VTM__ UTM SARS-CoV-2 (COVID-19) by RT-PCR (HIGH RISK)2020-04-23 00:00:00 Test Item Value Reference Range Interpretation Comments SARS-CoV-2 INTERPRETATION Negative (test code = 51155) SOURCE (test code = 47786) Nasal_Swab_in_VTM__ UTM SARS-CoV-2 (COVID-19) by RT-PCR (HIGH RISK)2020-04-23 00:00:00 Test Item Value Reference Range Interpretation Comments SARS-CoV-2 INTERPRETATION Negative (test code = 27049) SOURCE (test code = 68427) Nasal_Swab_in_VTM__ UTM SARS-CoV-2 (COVID-19) by RT-PCR (HIGH RISK)2020-04-23 00:00:00 Test Item Value Reference Range Interpretation Comments SARS-CoV-2 INTERPRETATION Negative (test code = 06002) SOURCE (test code = 82725) Nasal_Swab_in_VTM__ UTM SARS-CoV-2 (COVID-19) by RT-PCR (HIGH RISK)2020-04-23 00:00:00 Test Item Value Reference Range Interpretation Comments SARS-CoV-2 INTERPRETATION Negative (test code = 55655) SOURCE (test code = 32756) Nasal_Swab_in_VTM__ UTM SARS-CoV-2 (COVID-19) by RT-PCR (HIGH RISK)2020-04-23 00:00:00 Test Item Value Reference Range Interpretation Comments SARS-CoV-2 INTERPRETATION Negative (test code = 65759) SOURCE (test code = 54519) Nasal_Swab_in_VTM__ UTM SARS-CoV-2 (COVID-19) by RT-PCR (HIGH RISK)2020-04-23 00:00:00 Test Item Value Reference Range Interpretation Comments SARS-CoV-2 INTERPRETATION Negative (test code = 71144) SOURCE (test code = 15179) Nasal_Swab_in_VTM__ UTM SARS-CoV-2 (COVID-19) by RT-PCR (HIGH RISK)2020-04-23 00:00:00 Test Item Value Reference Range Interpretation Comments SARS-CoV-2 INTERPRETATION Negative (test code = 83596) SOURCE (test code = 91958) Nasal_Swab_in_VTM__ UTM SARS-CoV-2 (COVID-19) by RT-PCR (HIGH RISK)2020-04-23 00:00:00 Test Item Value Reference Range Interpretation Comments SARS-CoV-2 INTERPRETATION Negative (test code = 96893) SOURCE (test code = 00456) Nasal_Swab_in_VTM__ UTM COMPREHENSIVE METABOLIC [id number] 00:00:00 Test Item Value Reference Range Interpretation Comments GLUCOSE (test code = 2217) 217 MG/DL BUN (test code = 2208) 13 MG/DL CREATININE (test code = 2214) 0.64 MG/DL eGFR AMER. (test code 128 ML/MIN/1.73 = 69376) eGFR NON- AMER. (test 110 ML/MIN/1.73 code = 70248) CALC BUN/CREAT (test code = 20 RATIO [...] (test code = 2219) 47 U/L CULTURE, [id number] 00:00:00 Test Item Value Reference Range Interpretation Comments CULTURE, URINE (test SPECIMEN NUMBER: code = 92250) [id number] COMPREHENSIVE METABOLIC [id number] 00:00:00 Test Item Value Reference Range Interpretation Comments GLUCOSE (test code = 2217) 217 MG/DL BUN (test code = 2208) 13 MG/DL CREATININE (test code = 2214) 0.64 MG/DL eGFR AMER. (test code 128 ML/MIN/1.73 = 42229) eGFR NON- AMER. (test 110 ML/MIN/1.73 code = 60146) CALC BUN/CREAT (test code = 20 RATIO [...] = 0.4 MG/DL 7) ALKALINE PHOSPHATASE (test 63 U/L code = 2204) AST (test code = 2218) 36 U/L ALT (test code = 2219) 47 U/L CULTURE, [id number] 00:00:00 Test Item Value Reference Range Interpretation Comments CULTURE, URINE (test SPECIMEN NUMBER: code = 36238) [id number] LIPID [id number] 00:00:00 Test Item Value Reference Range Interpretation Comments CHOLESTEROL (test code = 2210) 220 MG/DL TRIGLYCERIDES (test code = 2232) 873 MG/DL HDL CHOLESTEROL (test code = 30 MG/DL 2220) CALC LDL CHOL (test code = 2237) (NOTE) MG/DL RISK RATIO LDL/HDL (test code = (NOTE) RATIO 2238) LIPID [id number] 00:00:00 Test Item Value Reference Range Interpretation Comments CHOLESTEROL (test code = 2210) 220 MG/DL TRIGLYCERIDES (test code = 2232) 873 MG/DL HDL CHOLESTEROL (test code = 30 MG/DL 2220) CALC LDL CHOL (test code = 2237) (NOTE) MG/DL RISK RATIO LDL/HDL (test code = (NOTE) RATIO 2238) HEMOGLOBIN [id number] 00:00:00 Test Item Value Reference Range Interpretation Comments HEMOGLOBIN A1c (test code = 88604) 10.9 % HEMOGLOBIN [id number] 00:00:00 Test Item Value Reference Range Interpretation Comments HEMOGLOBIN A1c (test code = 57694) 10.9 % HEMOGLOBIN [id number] 00:00:00 Test Item Value Reference Range Interpretation Comments HEMOGLOBIN A1c (test code = 03647) 10.9 % COMPREHENSIVE METABOLIC [id number] 00:00:00 Test Item Value Reference Range Interpretation Comments GLUCOSE (test code = 2217) 217 MG/DL BUN (test code = 8) 13 MG/DL CREATININE (test code = 2214) 0.64 MG/DL eGFR AMER. (test code 128 ML/MIN/1.73 = 81709) eGFR NON- AMER. (test 110 ML/MIN/1.73 code = 52623) CALC BUN/CREAT (test code = 20 RATIO [...] code = 2219) 47 U/L COMPREHENSIVE METABOLIC [id number] 00:00:00 Test Item Value Reference Range Interpretation Comments GLUCOSE (test code = 2217) 217 MG/DL BUN (test code = 2208) 13 MG/DL CREATININE (test code = 2214) 0.64 MG/DL eGFR AMER. (test code 128 ML/MIN/1.73 = 66363) eGFR NON- AMER. (test 110 ML/MIN/1.73 code = 17220) CALC BUN/CREAT (test code = 20 RATIO [...] (test code = 2219) 47 U/L CULTURE, [id number] 00:00:00 Test Item Value Reference Range Interpretation Comments CULTURE, URINE (test SPECIMEN NUMBER: code = 42479) [id number] CULTURE, [id number] 00:00:00 Test Item Value Reference Range Interpretation Comments CULTURE, URINE (test SPECIMEN NUMBER: code = 72141) [id number] LIPID [id number] 00:00:00 Test Item Value Reference Range Interpretation Comments CHOLESTEROL (test code = 2210) 220 MG/DL TRIGLYCERIDES (test code = 2232) 873 MG/DL HDL CHOLESTEROL (test code = 30 MG/DL 2219) CALC LDL CHOL (test code = 2237) (NOTE) MG/DL RISK RATIO LDL/HDL (test code = (NOTE) RATIO 2238) LIPID [id number] 00:00:00 Test Item Value Reference Range Interpretation Comments CHOLESTEROL (test code = 2210) 220 MG/DL TRIGLYCERIDES (test code = 2232) 873 MG/DL HDL CHOLESTEROL (test code = 30 MG/DL 2220) CALC LDL CHOL (test code = 2237) (NOTE) MG/DL RISK RATIO LDL/HDL (test code = (NOTE) RATIO 2238) HEMOGLOBIN [id number] 00:00:00 Test Item Value Reference Range Interpretation Comments HEMOGLOBIN A1c (test code = 73116) 10.9 % HEMOGLOBIN [id number] 00:00:00 Test Item Value Reference Range Interpretation Comments HEMOGLOBIN A1c (test code = 51021) 10.9 % HEMOGLOBIN [id number] 00:00:00 Test Item Value Reference Range Interpretation Comments HEMOGLOBIN A1c (test code = 18974) 10.9 % CULTURE, [id number] 00:00:00 Test Item Value Reference Range Interpretation Comments CULTURE, URINE (test SPECIMEN NUMBER: code = 73193) [id number] CULTURE, [id number] 00:00:00 Test Item Value Reference Range Interpretation Comments CULTURE, URINE (test SPECIMEN NUMBER: code = 72380) [id number] COMPREHENSIVE METABOLIC [id number] 00:00:00 Test Item Value Reference Range Interpretation Comments GLUCOSE (test code = 2217) 217 MG/DL BUN (test code = 2208) 13 MG/DL CREATININE (test code = 2214) 0.64 MG/DL eGFR AMER. (test code 128 ML/MIN/1.73 = 09991) eGFR NON- AMER. (test 110 ML/MIN/1.73 code = 92632) CALC BUN/CREAT (test code = 20 RATIO [...] code = 2219) 47 U/L COMPREHENSIVE METABOLIC [id number] 00:00:00 Test Item Value Reference Range Interpretation Comments GLUCOSE (test code = 2217) 217 MG/DL BUN (test code = 2208) 13 MG/DL CREATININE (test code = 2214) 0.64 MG/DL eGFR AMER. (test code 128 ML/MIN/1.73 = 09766) eGFR NON- AMER. (test 110 ML/MIN/1.73 code = 23059) CALC BUN/CREAT (test code = 20 RATIO [...] (test code = 2219) 47 U/L LIPID [id number] 00:00:00 Test Item Value Reference Range Interpretation Comments CHOLESTEROL (test code = 2210) 220 MG/DL TRIGLYCERIDES (test code = 2232) 873 MG/DL HDL CHOLESTEROL (test code = 30 MG/DL 2220) CALC LDL CHOL (test code = 2237) (NOTE) MG/DL RISK RATIO LDL/HDL (test code = (NOTE) RATIO 2238) LIPID [id number] 00:00:00 Test Item Value Reference Range Interpretation Comments CHOLESTEROL (test code = 2210) 220 MG/DL TRIGLYCERIDES (test code = 2232) 873 MG/DL HDL CHOLESTEROL (test code = 30 MG/DL 0) CALC LDL CHOL (test code = 2237) (NOTE) MG/DL RISK RATIO LDL/HDL (test code = (NOTE) RATIO 2238) HEMOGLOBIN [id number] 00:00:00 Test Item Value Reference Range Interpretation Comments HEMOGLOBIN A1c (test code = 92924) 10.9 % HEMOGLOBIN [id number] 00:00:00 Test Item Value Reference Range Interpretation Comments HEMOGLOBIN A1c (test code = 56291) 10.9 % HEMOGLOBIN [id number] 00:00:00 Test Item Value Reference Range Interpretation Comments HEMOGLOBIN A1c (test code = 50136) 10.9 % CULTURE, [id number] 00:00:00 Test Item Value Reference Range Interpretation Comments CULTURE, URINE (test SPECIMEN NUMBER: code = 05424) [id number] COMPREHENSIVE METABOLIC [id number] 00:00:00 Test Item Value Reference Range Interpretation Comments GLUCOSE (test code = 2217) 217 MG/DL BUN (test code = 2208) 13 MG/DL CREATININE (test code = 2214) 0.64 MG/DL eGFR AMER. (test code 128 ML/MIN/1.73 = 29931) eGFR NON- AMER. (test 110 ML/MIN/1.73 code = 78966) CALC BUN/CREAT (test code = 20 RATIO [...] code = 2219) 47 U/L COMPREHENSIVE METABOLIC [id number] 00:00:00 Test Item Value Reference Range Interpretation Comments GLUCOSE (test code = 2217) 217 MG/DL BUN (test code = 2208) 13 MG/DL CREATININE (test code = 2214) 0.64 MG/DL eGFR AMER. (test code 128 ML/MIN/1.73 = 72617) eGFR NON- AMER. (test 110 ML/MIN/1.73 code = 70280) CALC BUN/CREAT (test code = 20 RATIO [...] (test code = 2219) 47 U/L CULTURE, [id number] 00:00:00 Test Item Value Reference Range Interpretation Comments CULTURE, URINE (test SPECIMEN NUMBER: code = 01947) [id number] LIPID [id number] 00:00:00 Test Item Value Reference Range Interpretation Comments CHOLESTEROL (test code = 2210) 220 MG/DL TRIGLYCERIDES (test code = 2232) 873 MG/DL HDL CHOLESTEROL (test code = 30 MG/DL 2220) CALC LDL CHOL (test code = 2237) (NOTE) MG/DL RISK RATIO LDL/HDL (test code = (NOTE) RATIO 2238) LIPID [id number] 00:00:00 Test Item Value Reference Range Interpretation Comments CHOLESTEROL (test code = 2210) 220 MG/DL TRIGLYCERIDES (test code = 2232) 873 MG/DL HDL CHOLESTEROL (test code = 30 MG/DL 2220) CALC LDL CHOL (test code = 2237) (NOTE) MG/DL RISK RATIO LDL/HDL (test code = (NOTE) RATIO 2238) HEMOGLOBIN [id number] 00:00:00 Test Item Value Reference Range Interpretation Comments HEMOGLOBIN A1c (test code = 67320) 10.9 % HEMOGLOBIN [id number] 00:00:00 Test Item Value Reference Range Interpretation Comments HEMOGLOBIN A1c (test code = 76269) 10.9 % HEMOGLOBIN [id number] 00:00:00 Test Item Value Reference Range Interpretation Comments HEMOGLOBIN A1c (test code = 17961) 10.9 % COMPREHENSIVE METABOLIC [id number] 00:00:00 Test Item Value Reference Range Interpretation Comments GLUCOSE (test code = 2217) 217 MG/DL BUN (test code = 2208) 13 MG/DL CREATININE (test code = 2214) 0.64 MG/DL eGFR AMER. (test code 128 ML/MIN/1.73 = 39891) eGFR NON- AMER. (test 110 ML/MIN/1.73 code = 57679) CALC BUN/CREAT (test code = 20 RATIO [...] (test code = 2219) 47 U/L CULTURE, [id number] 00:00:00 Test Item Value Reference Range Interpretation Comments CULTURE, URINE (test SPECIMEN NUMBER: code = 66340) [id number] CULTURE, [id number] 00:00:00 Test Item Value Reference Range Interpretation Comments CULTURE, URINE (test SPECIMEN NUMBER: code = 18906) [id number] COMPREHENSIVE METABOLIC [id number] 00:00:00 Test Item Value Reference Range Interpretation Comments GLUCOSE (test code = 2217) 217 MG/DL BUN (test code = 2208) 13 MG/DL CREATININE (test code = 2214) 0.64 MG/DL eGFR AMER. (test code 128 ML/MIN/1.73 = 63623) eGFR NON- AMER. (test 110 ML/MIN/1.73 code = 93352) CALC BUN/CREAT (test code = 20 RATIO [...] (test code = 2219) 47 U/L LIPID [id number] 00:00:00 Test Item Value Reference Range Interpretation Comments CHOLESTEROL (test code = 2210) 220 MG/DL TRIGLYCERIDES (test code = 2232) 873 MG/DL HDL CHOLESTEROL (test code = 30 MG/DL 2220) CALC LDL CHOL (test code = 2237) (NOTE) MG/DL RISK RATIO LDL/HDL (test code = (NOTE) RATIO 2238) LIPID [id number] 00:00:00 Test Item Value Reference Range Interpretation Comments CHOLESTEROL (test code = 2210) 220 MG/DL TRIGLYCERIDES (test code = 2232) 873 MG/DL HDL CHOLESTEROL (test code = 30 MG/DL 2220) CALC LDL CHOL (test code = 2237) (NOTE) MG/DL RISK RATIO LDL/HDL (test code = (NOTE) RATIO 2238) HEMOGLOBIN [id number] 00:00:00 Test Item Value Reference Range Interpretation Comments HEMOGLOBIN A1c (test code = 05418) 10.9 % HEMOGLOBIN [id number] 00:00:00 Test Item Value Reference Range Interpretation Comments HEMOGLOBIN A1c (test code = 45982) 10.9 % HEMOGLOBIN [id number] 00:00:00 Test Item Value Reference Range Interpretation Comments HEMOGLOBIN A1c (test code = 89936) 10.9 % COMPREHENSIVE METABOLIC [id number] 00:00:00 Test Item Value Reference Range Interpretation Comments GLUCOSE (test code = 2217) 217 MG/DL BUN (test code = 2208) 13 MG/DL CREATININE (test code = 2214) 0.64 MG/DL eGFR AMER. (test code 128 ML/MIN/1.73 = 88404) eGFR NON- AMER. (test 110 ML/MIN/1.73 code = 76132) CALC BUN/CREAT (test code = 20 RATIO [...] (test code = 2219) 47 U/L CULTURE, [id number] 00:00:00 Test Item Value Reference Range Interpretation Comments CULTURE, URINE (test SPECIMEN NUMBER: code = 35033) [id number] CULTURE, [id number] 00:00:00 Test Item Value Reference Range Interpretation Comments CULTURE, URINE (test SPECIMEN NUMBER: code = 12274) [id number] COMPREHENSIVE METABOLIC [id number] 00:00:00 Test Item Value Reference Range Interpretation Comments GLUCOSE (test code = 2217) 217 MG/DL BUN (test code = 2208) 13 MG/DL CREATININE (test code = 2214) 0.64 MG/DL eGFR AMER. (test code 128 ML/MIN/1.73 = 94722) eGFR NON- AMER. (test 110 ML/MIN/1.73 code = 73553) CALC BUN/CREAT (test code = 20 RATIO [...] (test code = 2219) 47 U/L LIPID [id number] 00:00:00 Test Item Value Reference Range Interpretation Comments CHOLESTEROL (test code = 2210) 220 MG/DL TRIGLYCERIDES (test code = 2232) 873 MG/DL HDL CHOLESTEROL (test code = 30 MG/DL 2220) CALC LDL CHOL (test code = 2237) (NOTE) MG/DL RISK RATIO LDL/HDL (test code = (NOTE) RATIO 2238) LIPID [id number] 00:00:00 Test Item Value Reference Range Interpretation Comments CHOLESTEROL (test code = 2210) 220 MG/DL TRIGLYCERIDES (test code = 2232) 873 MG/DL HDL CHOLESTEROL (test code = 30 MG/DL 2220) CALC LDL CHOL (test code = 2237) (NOTE) MG/DL RISK RATIO LDL/HDL (test code = (NOTE) RATIO 2238) HEMOGLOBIN [id number] 00:00:00 Test Item Value Reference Range Interpretation Comments HEMOGLOBIN A1c (test code = 12810) 10.9 % HEMOGLOBIN [id number] 00:00:00 Test Item Value Reference Range Interpretation Comments HEMOGLOBIN A1c (test code = 83485) 10.9 % HEMOGLOBIN [id number] 00:00:00 Test Item Value Reference Range Interpretation Comments HEMOGLOBIN A1c (test code = 89330) 10.9 % COMPREHENSIVE METABOLIC [id number] 00:00:00 Test Item Value Reference Range Interpretation Comments GLUCOSE (test code = 2217) 217 MG/DL BUN (test code = 2208) 13 MG/DL CREATININE (test code = 2214) 0.64 MG/DL eGFR AMER. (test code 128 ML/MIN/1.73 = 00307) eGFR NON- AMER. (test 110 ML/MIN/1.73 code = 05133) CALC BUN/CREAT (test code = 20 RATIO [...] code = 2219) 47 U/L COMPREHENSIVE METABOLIC [id number] 00:00:00 Test Item Value Reference Range Interpretation Comments GLUCOSE (test code = 2217) 217 MG/DL BUN (test code = 2208) 13 MG/DL CREATININE (test code = 2214) 0.64 MG/DL eGFR AMER. (test code 128 ML/MIN/1.73 = 93118) eGFR NON- AMER. (test 110 ML/MIN/1.73 code = 48161) CALC BUN/CREAT (test code = 20 RATIO [...] (test code = 2219) 47 U/L CULTURE, [id number] 00:00:00 Test Item Value Reference Range Interpretation Comments CULTURE, URINE (test SPECIMEN NUMBER: code = 00254) [id number] COMPREHENSIVE METABOLIC [id number] 00:00:00 Test Item Value Reference Range Interpretation Comments GLUCOSE (test code = 2217) 217 MG/DL BUN (test code = 2208) 13 MG/DL CREATININE (test code = 2214) 0.64 MG/DL eGFR AMER. (test code 128 ML/MIN/1.73 = 40531) eGFR NON- AMER. (test 110 ML/MIN/1.73 code = 23908) CALC BUN/CREAT (test code = 20 RATIO [...] (test code = 2219) 47 U/L CULTURE, [id number] 00:00:00 Test Item Value Reference Range Interpretation Comments CULTURE, URINE (test SPECIMEN NUMBER: code = 34733) [id number] LIPID [id number] 00:00:00 Test Item Value Reference Range Interpretation Comments CHOLESTEROL (test code = 2210) 220 MG/DL TRIGLYCERIDES (test code = 2232) 873 MG/DL HDL CHOLESTEROL (test code = 30 MG/DL 2220) CALC LDL CHOL (test code = 2237) (NOTE) MG/DL RISK RATIO LDL/HDL (test code = (NOTE) RATIO 2238) LIPID [id number] 00:00:00 Test Item Value Reference Range Interpretation Comments CHOLESTEROL (test code = 2210) 220 MG/DL TRIGLYCERIDES (test code = 2232) 873 MG/DL HDL CHOLESTEROL (test code = 30 MG/DL 2220) CALC LDL CHOL (test code = 2237) (NOTE) MG/DL RISK RATIO LDL/HDL (test code = (NOTE) RATIO 2238) HEMOGLOBIN [id number] 00:00:00 Test Item Value Reference Range Interpretation Comments HEMOGLOBIN A1c (test code = 81619) 10.9 % HEMOGLOBIN [id number] 00:00:00 Test Item Value Reference Range Interpretation Comments HEMOGLOBIN A1c (test code = 74834) 10.9 % HEMOGLOBIN [id number] 00:00:00 Test Item Value Reference Range Interpretation Comments HEMOGLOBIN A1c (test code = 47581) 10.9 % CULTURE, [id number] 00:00:00 Test Item Value Reference Range Interpretation Comments CULTURE, URINE (test SPECIMEN NUMBER: code = 46414) [id number] LIPID [id number] 00:00:00 Test Item Value Reference Range Interpretation Comments CHOLESTEROL (test code = 2210) 220 MG/DL TRIGLYCERIDES (test code = 2232) 873 MG/DL HDL CHOLESTEROL (test code = 30 MG/DL 2220) CALC LDL CHOL (test code = 2237) (NOTE) MG/DL RISK RATIO LDL/HDL (test code = (NOTE) RATIO 2238) HEMOGLOBIN [id number] 00:00:00 Test Item Value Reference Range Interpretation Comments HEMOGLOBIN A1c (test code = 36557) 10.9 % HEMOGLOBIN [id number] 00:00:00 Test Item Value Reference Range Interpretation Comments HEMOGLOBIN A1c (test code = 60042) 10.9 % CULTURE, [id number] 00:00:00 Test Item Value Reference Range Interpretation Comments CULTURE, URINE (test SPECIMEN NUMBER: code = 86146) [id number] COMPREHENSIVE METABOLIC [id number] 00:00:00 Test Item Value Reference Range Interpretation Comments GLUCOSE (test code = 2217) 217 MG/DL BUN (test code = 2208) 13 MG/DL CREATININE (test code = 2214) 0.64 MG/DL eGFR AMER. (test code 128 ML/MIN/1.73 = 28035) eGFR NON- AMER. (test 110 ML/MIN/1.73 code = 97060) CALC BUN/CREAT (test code = 20 RATIO [...] (test code = 2219) 47 U/L CULTURE, [id number] 00:00:00 Test Item Value Reference Range Interpretation Comments CULTURE, URINE (test SPECIMEN NUMBER: code = 90897 [id number] COMPREHENSIVE METABOLIC [id number] 00:00:00 Test Item Value Reference Range Interpretation Comments GLUCOSE (test code = 2217) 217 MG/DL BUN (test code = 2208) 13 MG/DL CREATININE (test code = 2214) 0.64 MG/DL eGFR AMER. (test code 128 ML/MIN/1.73 = 59804) eGFR NON- AMER. (test 110 ML/MIN/1.73 code = 32478) CALC BUN/CREAT (test code = 20 RATIO [...] (test code = 2219) 47 U/L LIPID [id number] 00:00:00 Test Item Value Reference Range Interpretation Comments CHOLESTEROL (test code = 2210) 220 MG/DL TRIGLYCERIDES (test code = 2232) 873 MG/DL HDL CHOLESTEROL (test code = 30 MG/DL 2220) CALC LDL CHOL (test code = 2237) (NOTE) MG/DL RISK RATIO LDL/HDL (test code = (NOTE) RATIO 2238) LIPID [id number] 00:00:00 Test Item Value Reference Range Interpretation Comments CHOLESTEROL (test code = 2210) 220 MG/DL TRIGLYCERIDES (test code = 2232) 873 MG/DL HDL CHOLESTEROL (test code = 30 MG/DL 2220) CALC LDL CHOL (test code = 2237) (NOTE) MG/DL RISK RATIO LDL/HDL (test code = (NOTE) RATIO 2238) HEMOGLOBIN [id number] 00:00:00 Test Item Value Reference Range Interpretation Comments HEMOGLOBIN A1c (test code = 81890) 10.9 % HEMOGLOBIN [id number] 00:00:00 Test Item Value Reference Range Interpretation Comments HEMOGLOBIN A1c (test code = 43048) 10.9 % HEMOGLOBIN [id number] 00:00:00 Test Item Value Reference Range Interpretation Comments HEMOGLOBIN A1c (test code = 21512) 10.9 % CULTURE, [id number] 00:00:00 Test Item Value Reference Range Interpretation Comments CULTURE, URINE (test SPECIMEN NUMBER: code = 86686) [id number] COMPREHENSIVE METABOLIC [id number] 00:00:00 Test Item Value Reference Range Interpretation Comments GLUCOSE (test code = 2217) 217 MG/DL BUN (test code = 2208) 13 MG/DL CREATININE (test code = 2214) 0.64 MG/DL eGFR AMER. (test code 128 ML/MIN/1.73 = 35812) eGFR NON- AMER. (test 110 ML/MIN/1.73 code = 15136) CALC BUN/CREAT (test code = 20 RATIO [...] (test code = 2219) 47 U/L CULTURE, [id number] 00:00:00 Test Item Value Reference Range Interpretation Comments CULTURE, URINE (test SPECIMEN NUMBER: code = 01977) [id number] COMPREHENSIVE METABOLIC [id number] 00:00:00 Test Item Value Reference Range Interpretation Comments GLUCOSE (test code = 2217) 217 MG/DL BUN (test code = 2208) 13 MG/DL CREATININE (test code = 2214) 0.64 MG/DL eGFR AMER. (test code 128 ML/MIN/1.73 = 85473) eGFR NON- AMER. (test 110 ML/MIN/1.73 code = 22063) CALC BUN/CREAT (test code = 20 RATIO [...] (test code = 2219) 47 U/L LIPID [id number] 00:00:00 Test Item Value Reference Range Interpretation Comments CHOLESTEROL (test code = 2210) 220 MG/DL TRIGLYCERIDES (test code = 2232) 873 MG/DL HDL CHOLESTEROL (test code = 30 MG/DL 2220) CALC LDL CHOL (test code = 2237) (NOTE) MG/DL RISK RATIO LDL/HDL (test code = (NOTE) RATIO 2238) LIPID [id number] 00:00:00 Test Item Value Reference Range Interpretation Comments CHOLESTEROL (test code = 2210) 220 MG/DL TRIGLYCERIDES (test code = 2232) 873 MG/DL HDL CHOLESTEROL (test code = 30 MG/DL 2220) CALC LDL CHOL (test code = 2237) (NOTE) MG/DL RISK RATIO LDL/HDL (test code = (NOTE) RATIO 2238) HEMOGLOBIN [id number] 00:00:00 Test Item Value Reference Range Interpretation Comments HEMOGLOBIN A1c (test code = 93712) 10.9 % HEMOGLOBIN [id number] 00:00:00 Test Item Value Reference Range Interpretation Comments HEMOGLOBIN A1c (test code = 96332) 10.9 % HEMOGLOBIN [id number] 00:00:00 Test Item Value Reference Range Interpretation Comments HEMOGLOBIN A1c (test code = 61269) 10.9 % COMPREHENSIVE METABOLIC [id number] 00:00:00 Test Item Value Reference Range Interpretation Comments GLUCOSE (test code = 2217) 217 MG/DL BUN (test code = 2208) 13 MG/DL CREATININE (test code = 2214) 0.64 MG/DL eGFR AMER. (test code 128 ML/MIN/1.73 = 17784) eGFR NON- AMER. (test 110 ML/MIN/1.73 code = 76724) CALC BUN/CREAT (test code = 20 RATIO [...] (test code = 2219) 47 U/L CULTURE, [id number] 00:00:00 Test Item Value Reference Range Interpretation Comments CULTURE, URINE (test SPECIMEN NUMBER: code = 15412) [id number] COMPREHENSIVE METABOLIC [id number] 00:00:00 Test Item Value Reference Range Interpretation Comments GLUCOSE (test code = 2217) 217 MG/DL BUN (test code = 2208) 13 MG/DL CREATININE (test code = 2214) 0.64 MG/DL eGFR AMER. (test code 128 ML/MIN/1.73 = 28047) eGFR NON- AMER. (test 110 ML/MIN/1.73 code = 39230) CALC BUN/CREAT (test code = 20 RATIO [...] (test code = 2219) 47 U/L CULTURE, [id number] 00:00:00 Test Item Value Reference Range Interpretation Comments CULTURE, URINE (test SPECIMEN NUMBER: code = 81329) [id number] LIPID [id number] 00:00:00 Test Item Value Reference Range Interpretation Comments CHOLESTEROL (test code = 2210) 220 MG/DL TRIGLYCERIDES (test code = 2232) 873 MG/DL HDL CHOLESTEROL (test code = 30 MG/DL 2220) CALC LDL CHOL (test code = 2237) (NOTE) MG/DL RISK RATIO LDL/HDL (test code = (NOTE) RATIO 2238) LIPID [id number] 00:00:00 Test Item Value Reference Range Interpretation Comments CHOLESTEROL (test code = 2210) 220 MG/DL TRIGLYCERIDES (test code = 2232) 873 MG/DL HDL CHOLESTEROL (test code = 30 MG/DL 2220) CALC LDL CHOL (test code = 2237) (NOTE) MG/DL RISK RATIO LDL/HDL (test code = (NOTE) RATIO 2238) HEMOGLOBIN [id number] 00:00:00 Test Item Value Reference Range Interpretation Comments HEMOGLOBIN A1c (test code = 67262) 10.9 % HEMOGLOBIN [id number] 00:00:00 Test Item Value Reference Range Interpretation Comments HEMOGLOBIN A1c (test code = 57165) 10.9 % HEMOGLOBIN [id number] 00:00:00 Test Item Value Reference Range Interpretation Comments HEMOGLOBIN A1c (test code = 24337) 10.9 % - XR ANKLE 3 + V [id number] 07:19:00 Patient Name: Marge Franco Unit No: [id number] EXAMS: CPT CODE: [id number] XR ANKLE 3 + V RT 60[address] Right ankle 3 views COMMENT: There is [...] Hodge DO Technologist: RT JOSE(R) Transcribed D/ (718) [facility] Benny Franconne[address] PHYS: Judi Cardenas DO : 1980 AGE: 40 SEX: F [place] [address] A CCT NO: [id number] LOC: TEOFILO PHONE #: [phone] EXAM DATE: 02/13/2020 STATUS: DEP ER FAX #: [phone] RAD #: D/C DT PAGE 1 Signed Report Patient Name: Marge Franco Unit No: [id number] EXAMS: CPT CODE: [id number] XR ANKLE 3 + V RT 73085 (Continued) Orig Print D/T: S: 02/14/2020 (721) [facility] NAME: Marge Franco [address] [place] [address] PHYS: Judi Cardenas DO : 1980 AGE: 40 SEX: [place] [address] LOC: TEOFILO PHONE #: [phone] EXAM DATE: 02/13/2020 STATUS: DEP ER FAX #: [phone] RAD #: D/C DT PAGE 2 Signed Report- XR FOOT 2 VIEWS [id number] 07:19:00 Patient Name: Marge Franco Unit No: [id number] EXAMS: CPT CODE: [id number] XR FOOT [address] [place] [address] Right ankle 3 views COMMENT: There is no evidence for fracture. There is no evidence for widening of the ankle mortise. There is no evidence for a joint effusion or loose body. A small plantar calcane al spur is noted. Right foot 2 views COMMENT: There is no evidence for fracture or subluxation. No focal bony lesions are seen. at 07 Reported and signed by: Prasad Marina MD CC: Judi Hodge DO Technologist: SAMANTHA MORALES, RT(R) Transcribed D/ (718) [facility] NAME: Marge Franco [address] [facility] PHYS: Judi Cardenas DO : 1980 AGE: 40 SEX: Kandice [place], [place] [address]KCUJ NO: [id number] LOC: TEOFILO PHONE #: [phone] EXAM DATE: 02/13/2020 STATUS: DEP ER FAX #: [phone] RAD #: D/C DT PAGE 1 Signed Report Patient Name: Marge Franco Unit No: [id number] EXAMS: CPT CODE: [id number] XR FOOT [address] [place] [address] (Continued) Orig Print D/T: S: 02/14/2020 (0722) [facility] NAME: Marge Franco [address] [facility] [address] PHYS: Judi Cardenas DO : 1980 AGE: 40 SEX: F [place], [place] [address] LOC: TEOFILO PHONE #: [phone] EXAM DATE: 02/13/2020 STATUS: DEP ER FAX #: [phone] RAD #: D/C DT PAGE 2 Signed Report [id number] 11:17:00 Test Item Value Reference Range Interpretation Comments GLUBED (test code = GLUBED) 119 mg/dL 60-125 N [id number] 08:15:00 Test Item Value Reference Range Interpretation Comments GLUBED (test code = GLUBED) 117 mg/dL 60-125 N Novel Coronavirus 2019 [id number] 17:12:00 Test Item Value Reference Range Interpretation Comments Novel Coronavirus 2019 Inhouse (test Negative Negative code = COVNONPUI) Novel Coronavirus 2019 [id number] 17:12:00 Test Item Value Reference Range Interpretation Comments Novel Coronavirus 2019 Inhouse (test Negative Negative code = COVNONPUI) CBC W/AUTO [id number] 20:19:00 Test Item Value Reference Range Interpretation [...] 0-0 N code = NRBC) BASIC METABOLIC [id number] 19:54:00 Test Item Value Reference Range Interpretation [...] RATE (test code = GFR) mL/mi n/1.73 d7Ryuvbleos Range:Healthy A dults >90 mL/min/1.73 m2 For Chronic Kid stoney Disease: Stage II Mild Decrease i n GFR 60-90 Stage III Moderate Decrea se in GFR 30-59 Stage IV Severe Decrease in GFR 15-29 Stage V Kidney Failure <15 CREATININE (test code 0.83 mg/dL 0.55-1.30 N = CREAT) CALCIUM (test code = 9.6 mg/dL 8.2-10.1 N CA) - CT LOWER EXTRM W/O C [id number] 14:57:00 Patient Name: MARGE FRANCO Unit No: [id number] EXAMS: CPT CODE: [id number] CT LOWER EXTRM W/[place] [address] [address] SCAN RIGHT ANKLE WITH RECONSTRUCTION DIAGNOSIS: [...] with ACR practice standards and adherence to it professional's recommendations. INDICATION: RIGHT ANKLE PAIN COMPARISON: None. COMMENT: Findings are as described above. at 1457 Reported and signed by: America Schuler MD CC: Elbert Wilson MD Technologist: Shaan rhodesRT(R) CTDI: DLP: Trnscrpt: 01/04/2020 (2927) [email or web address] [facility] NAME: MARGE FRANCO [address] [facility] PHYS: Elbert Rodrigues MD : 1980 AGE: 39 SEX: F [place], [place] [address] LOC: Y.RAD PHONE #: [phone] EXAM DATE: 01/04/2020 STATUS: REG CLI FAX #: [phone] RAD #: D/C DT PAGE 1 Signed Report Patient Name: MARGE FRANCO Unit No: [id number] EXAMS: CPT CODE: [id number] [place] L[place]TRM W/[place] [address] (Continued) Orig Print D/T: S: 01/04/2020 (1500) [facility] NAME: MARGE FRANCO [address] [facility] PHYS: Elbert Rodrigues MD : 1980 AGE: 39 SEX: F [place] [address] LOC: Y.RAD PHONE #: [phone] EXAM DATE: 01/04/2020 STATUS: REG CLI FAX #: [phone] RAD #: D/C DT PAGE 2 Signed ReportCULTURE, URINE 2019-12-22 00:00:00 Test Item Value Reference Range Interpretation Comments CULTURE, URINE (test SPECIMEN NUMBER: code = 27935) [id number] CULTURE, [id number] 00:00:00 Test Item Value Reference Range Interpretation Comments CULTURE, URINE (test SPECIMEN NUMBER: code = 93415) [id number] CULTURE, [id number] 00:00:00 Test Item Value Reference Range Interpretation Comments CULTURE, URINE (test SPECIMEN NUMBER: code = 35540) [id number] CULTURE, [id number] 00:00:00 Test Item Value Reference Range Interpretation Comments CULTURE, URINE (test SPECIMEN NUMBER: code = 67125) [id number] CULTURE, [id number] 00:00:00 Test Item Value Reference Range Interpretation Comments CULTURE, URINE (test SPECIMEN NUMBER: code = 63145) [id number] CULTURE, [id number] 00:00:00 Test Item Value Reference Range Interpretation Comments CULTURE, URINE (test SPECIMEN NUMBER: code = 18355) [id number] CULTURE, [id number] 00:00:00 Test Item Value Reference Range Interpretation Comments CULTURE, URINE (test SPECIMEN NUMBER: code = 61509) [id number] CULTURE, [id number] 00:00:00 Test Item Value Reference Range Interpretation Comments CULTURE, URINE (test SPECIMEN NUMBER: code = 44275) [id number] CULTURE, [id number] 00:00:00 Test Item Value Reference Range Interpretation Comments CULTURE, URINE (test SPECIMEN NUMBER: code = 74796) [id number] CULTURE, [id number] 00:00:00 Test Item Value Reference Range Interpretation Comments CULTURE, URINE (test SPECIMEN NUMBER: code = 64871) [id number] CULTURE, [id number] 00:00:00 Test Item Value Reference Range Interpretation Comments CULTURE, URINE (test SPECIMEN NUMBER: code = 71177) [id number] CULTURE, [id number] 00:00:00 Test Item Value Reference Range Interpretation Comments CULTURE, URINE (test SPECIMEN NUMBER: code = 82988) [id number] CULTURE, [id number] 00:00:00 Test Item Value Reference Range Interpretation Comments CULTURE, URINE (test SPECIMEN NUMBER: code = 57838) [id number] CULTURE, [id number] 00:00:00 Test Item Value Reference Range Interpretation Comments CULTURE, URINE (test SPECIMEN NUMBER: code = 03033) [id number] CULTURE, [id number] 00:00:00 Test Item Value Reference Range Interpretation Comments CULTURE, URINE (test SPECIMEN NUMBER: code = 51057) [id number] CULTURE, [id number] 00:00:00 Test Item Value Reference Range Interpretation Comments CULTURE, URINE (test SPECIMEN NUMBER: code = 67519) [id number] CULTURE, [id number] 00:00:00 Test Item Value Reference Range Interpretation Comments CULTURE, URINE (test SPECIMEN NUMBER: code = 16590) [id number] CULTURE, [id number] 00:00:00 Test Item Value Reference Range Interpretation Comments CULTURE, URINE (test SPECIMEN NUMBER: code = 27879) [id number] CULTURE, [id number] 00:00:00 Test Item Value Reference Range Interpretation Comments CULTURE, URINE (test SPECIMEN NUMBER: code = 28200) [id number] CULTURE, [id number] 00:00:00 Test Item Value Reference Range Interpretation Comments CULTURE, URINE (test SPECIMEN NUMBER: code = 34909) [id number] CULTURE, [id number] 00:00:00 Test Item Value Reference Range Interpretation Comments CULTURE, URINE (test SPECIMEN NUMBER: code = 91755) [id number] LIPID [id number] 00:00:00 Test Item Value Reference Range Interpretation Comments CHOLESTEROL (test code = 2210) 354 MG/DL TRIGLYCERIDES (test code = 2232) 2608 MG/DL HDL CHOLESTEROL (test code = 19 MG/DL 2220) CALC LDL CHOL (test code = 2237) NOTE MG/DL RISK RATIO LDL/HDL (test code = (NOTE) RATIO 2238) LIPID [id number] 00:00:00 Test Item Value Reference Range Interpretation Comments CHOLESTEROL (test code = 2210) 354 MG/DL TRIGLYCERIDES (test code = 2232) 2608 MG/DL HDL CHOLESTEROL (test code = 19 MG/DL 2220) CALC LDL CHOL (test code = 2237) NOTE MG/DL RISK RATIO LDL/HDL (test code = (NOTE) RATIO 2238) HEMOGLOBIN [id number] 00:00:00 Test Item Value Reference Range Interpretation Comments HEMOGLOBIN A1c (test code = 76520) 11.5 % HEMOGLOBIN [id number] 00:00:00 Test Item Value Reference Range Interpretation Comments HEMOGLOBIN A1c (test code = 24042) 11.5 % HEMOGLOBIN [id number] 00:00:00 Test Item Value Reference Range Interpretation Comments HEMOGLOBIN A1c (test code = 42239) 11.5 % MICROALBUMIN/CREATININE, RANDOM AND [id number] 00:00:00 Test Item Value Reference Range Interpretation Comments CREATININE, URINE, CONC. (test 92.4 MG/DL code = 2072) ALBUMIN, URINE, RANDOM (test code 158.5 MG/DL = 71543) CALC ALBUMIN/CREAT, RND (test 1715 MG/G code = 71613) MICROALBUMIN/CREATININE, RANDOM AND [id number] 00:00:00 Test Item Value Reference Range Interpretation Comments CREATININE, URINE, CONC. (test 92.4 MG/DL code = 2072) ALBUMIN, URINE, RANDOM (test code 158.5 MG/DL = 80248) CALC ALBUMIN/CREAT, RND (test 1715 MG/G code = 55740) LIPID [id number] 00:00:00 Test Item Value Reference Range Interpretation Comments CHOLESTEROL (test code = 2210) 354 MG/DL TRIGLYCERIDES (test code = 2232) 2608 MG/DL HDL CHOLESTEROL (test code = 19 MG/DL 2220) CALC LDL CHOL (test code = 2237) NOTE MG/DL RISK RATIO LDL/HDL (test code = (NOTE) RATIO 2238) LIPID [id number] 00:00:00 Test Item Value Reference Range Interpretation Comments CHOLESTEROL (test code = 2210) 354 MG/DL TRIGLYCERIDES (test code = 2232) 2608 MG/DL HDL CHOLESTEROL (test code = 19 MG/DL 2220) CALC LDL CHOL (test code = 2237) NOTE MG/DL RISK RATIO LDL/HDL (test code = (NOTE) RATIO 2238) HEMOGLOBIN [id number] 00:00:00 Test Item Value Reference Range Interpretation Comments HEMOGLOBIN A1c (test code = 97002) 11.5 % HEMOGLOBIN [id number] 00:00:00 Test Item Value Reference Range Interpretation Comments HEMOGLOBIN A1c (test code = 84873) 11.5 % HEMOGLOBIN [id number] 00:00:00 Test Item Value Reference Range Interpretation Comments HEMOGLOBIN A1c (test code = 70606) 11.5 % MICROALBUMIN/CREATININE, RANDOM AND [id number] 00:00:00 Test Item Value Reference Range Interpretation Comments CREATININE, URINE, CONC. (test 92.4 MG/DL code = 2072) ALBUMIN, URINE, RANDOM (test code 158.5 MG/DL = 19763) CALC ALBUMIN/CREAT, RND (test 1715 MG/G code = 74286) MICROALBUMIN/CREATININE, RANDOM AND [id number] 00:00:00 Test Item Value Reference Range Interpretation Comments CREATININE, URINE, CONC. (test 92.4 MG/DL code = 2072) ALBUMIN, URINE, RANDOM (test code 158.5 MG/DL = 76806) CALC ALBUMIN/CREAT, RND (test 1715 MG/G code = 50549) LIPID [id number] 00:00:00 Test Item Value Reference Range Interpretation Comments CHOLESTEROL (test code = 2210) 354 MG/DL TRIGLYCERIDES (test code = 2232) 2608 MG/DL HDL CHOLESTEROL (test code = 19 MG/DL 2220) CALC LDL CHOL (test code = 2237) NOTE MG/DL RISK RATIO LDL/HDL (test code = (NOTE) RATIO 2238) LIPID [id number] 00:00:00 Test Item Value Reference Range Interpretation Comments CHOLESTEROL (test code = 2210) 354 MG/DL TRIGLYCERIDES (test code = 2232) 2608 MG/DL HDL CHOLESTEROL (test code = 19 MG/DL 2220) CALC LDL CHOL (test code = 2237) NOTE MG/DL RISK RATIO LDL/HDL (test code = (NOTE) RATIO 2238) HEMOGLOBIN [id number] 00:00:00 Test Item Value Reference Range Interpretation Comments HEMOGLOBIN A1c (test code = 99623) 11.5 % HEMOGLOBIN [id number] 00:00:00 Test Item Value Reference Range Interpretation Comments HEMOGLOBIN A1c (test code = 80929) 11.5 % HEMOGLOBIN [id number] 00:00:00 Test Item Value Reference Range Interpretation Comments HEMOGLOBIN A1c (test code = 46213) 11.5 % MICROALBUMIN/CREATININE, RANDOM AND [id number] 00:00:00 Test Item Value Reference Range Interpretation Comments CREATININE, URINE, CONC. (test 92.4 MG/DL code = 2072) ALBUMIN, URINE, RANDOM (test code 158.5 MG/DL = 10408) CALC ALBUMIN/CREAT, RND (test 1715 MG/G code = 18351) MICROALBUMIN/CREATININE, RANDOM AND [id number] 00:00:00 Test Item Value Reference Range Interpretation Comments CREATININE, URINE, CONC. (test 92.4 MG/DL code = 2072) ALBUMIN, URINE, RANDOM (test code 158.5 MG/DL = 54208) CALC ALBUMIN/CREAT, RND (test 1715 MG/G code = 92885) LIPID [id number] 00:00:00 Test Item Value Reference Range Interpretation Comments CHOLESTEROL (test code = 2210) 354 MG/DL TRIGLYCERIDES (test code = 2232) 2608 MG/DL HDL CHOLESTEROL (test code = 19 MG/DL 2220) CALC LDL CHOL (test code = 2237) NOTE MG/DL RISK RATIO LDL/HDL (test code = (NOTE) RATIO 2238) LIPID [id number] 00:00:00 Test Item Value Reference Range Interpretation Comments CHOLESTEROL (test code = 2210) 354 MG/DL TRIGLYCERIDES (test code = 2232) 2608 MG/DL HDL CHOLESTEROL (test code = 19 MG/DL 2220) CALC LDL CHOL (test code = 2237) NOTE MG/DL RISK RATIO LDL/HDL (test code = (NOTE) RATIO 2238) HEMOGLOBIN [id number] 00:00:00 Test Item Value Reference Range Interpretation Comments HEMOGLOBIN A1c (test code = 96654) 11.5 % HEMOGLOBIN [id number] 00:00:00 Test Item Value Reference Range Interpretation Comments HEMOGLOBIN A1c (test code = 24251) 11.5 % HEMOGLOBIN [id number] 00:00:00 Test Item Value Reference Range Interpretation Comments HEMOGLOBIN A1c (test code = 58974) 11.5 % MICROALBUMIN/CREATININE, RANDOM AND [id number] 00:00:00 Test Item Value Reference Range Interpretation Comments CREATININE, URINE, CONC. (test 92.4 MG/DL code = 2072) ALBUMIN, URINE, RANDOM (test code 158.5 MG/DL = 92776) CALC ALBUMIN/CREAT, RND (test 1715 MG/G code = 96714) MICROALBUMIN/CREATININE, RANDOM AND [id number] 00:00:00 Test Item Value Reference Range Interpretation Comments CREATININE, URINE, CONC. (test 92.4 MG/DL code = 2072) ALBUMIN, URINE, RANDOM (test code 158.5 MG/DL = 67747) CALC ALBUMIN/CREAT, RND (test 1715 MG/G code = 40896) LIPID [id number] 00:00:00 Test Item Value Reference Range Interpretation Comments CHOLESTEROL (test code = 2210) 354 MG/DL TRIGLYCERIDES (test code = 2232) 2608 MG/DL HDL CHOLESTEROL (test code = 19 MG/DL 2220) CALC LDL CHOL (test code = 2237) NOTE MG/DL RISK RATIO LDL/HDL (test code = (NOTE) RATIO 2238) LIPID [id number] 00:00:00 Test Item Value Reference Range Interpretation Comments CHOLESTEROL (test code = 2210) 354 MG/DL TRIGLYCERIDES (test code = 2232) 2608 MG/DL HDL CHOLESTEROL (test code = 19 MG/DL 2220) CALC LDL CHOL (test code = 2237) NOTE MG/DL RISK RATIO LDL/HDL (test code = (NOTE) RATIO 2238) HEMOGLOBIN [id number] 00:00:00 Test Item Value Reference Range Interpretation Comments HEMOGLOBIN A1c (test code = 07248) 11.5 % HEMOGLOBIN [id number] 00:00:00 Test Item Value Reference Range Interpretation Comments HEMOGLOBIN A1c (test code = 21267) 11.5 % HEMOGLOBIN [id number] 00:00:00 Test Item Value Reference Range Interpretation Comments HEMOGLOBIN A1c (test code = 66210) 11.5 % MICROALBUMIN/CREATININE, RANDOM AND [id number] 00:00:00 Test Item Value Reference Range Interpretation Comments CREATININE, URINE, CONC. (test 92.4 MG/DL code = 2072) ALBUMIN, URINE, RANDOM (test code 158.5 MG/DL = 46005) CALC ALBUMIN/CREAT, RND (test 1715 MG/G code = 70924) MICROALBUMIN/CREATININE, RANDOM AND [id number] 00:00:00 Test Item Value Reference Range Interpretation Comments CREATININE, URINE, CONC. (test 92.4 MG/DL code = 2072) ALBUMIN, URINE, RANDOM (test code 158.5 MG/DL = 18757) CALC ALBUMIN/CREAT, RND (test 1715 MG/G code = 04828) LIPID [id number] 00:00:00 Test Item Value Reference Range Interpretation Comments CHOLESTEROL (test code = 2210) 354 MG/DL TRIGLYCERIDES (test code = 2232) 2608 MG/DL HDL CHOLESTEROL (test code = 19 MG/DL 2220) CALC LDL CHOL (test code = 2237) NOTE MG/DL RISK RATIO LDL/HDL (test code = (NOTE) RATIO 2238) LIPID [id number] 00:00:00 Test Item Value Reference Range Interpretation Comments CHOLESTEROL (test code = 2210) 354 MG/DL TRIGLYCERIDES (test code = 2232) 2608 MG/DL HDL CHOLESTEROL (test code = 19 MG/DL 2220) CALC LDL CHOL (test code = 2237) NOTE MG/DL RISK RATIO LDL/HDL (test code = (NOTE) RATIO 2238) HEMOGLOBIN [id number] 00:00:00 Test Item Value Reference Range Interpretation Comments HEMOGLOBIN A1c (test code = 35534) 11.5 % HEMOGLOBIN [id number] 00:00:00 Test Item Value Reference Range Interpretation Comments HEMOGLOBIN A1c (test code = 45375) 11.5 % HEMOGLOBIN [id number] 00:00:00 Test Item Value Reference Range Interpretation Comments HEMOGLOBIN A1c (test code = 29296) 11.5 % MICROALBUMIN/CREATININE, RANDOM AND [id number] 00:00:00 Test Item Value Reference Range Interpretation Comments CREATININE, URINE, CONC. (test 92.4 MG/DL code = 2072) ALBUMIN, URINE, RANDOM (test code 158.5 MG/DL = 42430) CALC ALBUMIN/CREAT, RND (test 1715 MG/G code = 30896) MICROALBUMIN/CREATININE, RANDOM AND [id number] 00:00:00 Test Item Value Reference Range Interpretation Comments CREATININE, URINE, CONC. (test 92.4 MG/DL code = 2072) ALBUMIN, URINE, RANDOM (test code 158.5 MG/DL = 88267) CALC ALBUMIN/CREAT, RND (test 1715 MG/G code = 39056) LIPID [id number] 00:00:00 Test Item Value Reference Range Interpretation Comments CHOLESTEROL (test code = 2210) 354 MG/DL TRIGLYCERIDES (test code = 2232) 2608 MG/DL HDL CHOLESTEROL (test code = 19 MG/DL 2220) CALC LDL CHOL (test code = 2237) NOTE MG/DL RISK RATIO LDL/HDL (test code = (NOTE) RATIO 2238) LIPID [id number] 00:00:00 Test Item Value Reference Range Interpretation Comments CHOLESTEROL (test code = 2210) 354 MG/DL TRIGLYCERIDES (test code = 2232) 2608 MG/DL HDL CHOLESTEROL (test code = 19 MG/DL 2220) CALC LDL CHOL (test code = 2237) NOTE MG/DL RISK RATIO LDL/HDL (test code = (NOTE) RATIO 2238) HEMOGLOBIN [id number] 00:00:00 Test Item Value Reference Range Interpretation Comments HEMOGLOBIN A1c (test code = 18027) 11.5 % HEMOGLOBIN [id number] 00:00:00 Test Item Value Reference Range Interpretation Comments HEMOGLOBIN A1c (test code = 72993) 11.5 % HEMOGLOBIN [id number] 00:00:00 Test Item Value Reference Range Interpretation Comments HEMOGLOBIN A1c (test code = 30595) 11.5 % MICROALBUMIN/CREATININE, RANDOM AND [id number] 00:00:00 Test Item Value Reference Range Interpretation Comments CREATININE, URINE, CONC. (test 92.4 MG/DL code = 2072) ALBUMIN, URINE, RANDOM (test code 158.5 MG/DL = 45509) CALC ALBUMIN/CREAT, RND (test 1715 MG/G code = 95550) MICROALBUMIN/CREATININE, RANDOM AND [id number] 00:00:00 Test Item Value Reference Range Interpretation Comments CREATININE, URINE, CONC. (test 92.4 MG/DL code = 2072) ALBUMIN, URINE, RANDOM (test code 158.5 MG/DL = 79612) CALC ALBUMIN/CREAT, RND (test 1715 MG/G code = 65442) LIPID [id number] 00:00:00 Test Item Value Reference Range Interpretation Comments CHOLESTEROL (test code = 2210) 354 MG/DL TRIGLYCERIDES (test code = 2232) 2608 MG/DL HDL CHOLESTEROL (test code = 19 MG/DL 2220) CALC LDL CHOL (test code = 2237) NOTE MG/DL RISK RATIO LDL/HDL (test code = (NOTE) RATIO 2238) HEMOGLOBIN [id number] 00:00:00 Test Item Value Reference Range Interpretation Comments HEMOGLOBIN A1c (test code = 24715) 11.5 % HEMOGLOBIN [id number] 00:00:00 Test Item Value Reference Range Interpretation Comments HEMOGLOBIN A1c (test code = 74761) 11.5 % MICROALBUMIN/CREATININE, RANDOM AND [id number] 00:00:00 Test Item Value Reference Range Interpretation Comments CREATININE, URINE, CONC. (test 92.4 MG/DL code = 2072) ALBUMIN, URINE, RANDOM (test code 158.5 MG/DL = 48195) CALC ALBUMIN/CREAT, RND (test 1715 MG/G code = 94256) LIPID [id number] 00:00:00 Test Item Value Reference Range Interpretation Comments CHOLESTEROL (test code = 2210) 354 MG/DL TRIGLYCERIDES (test code = 2232) 2608 MG/DL HDL CHOLESTEROL (test code = 19 MG/DL 2220) CALC LDL CHOL (test code = 2237) NOTE MG/DL RISK RATIO LDL/HDL (test code = (NOTE) RATIO 2238) LIPID [id number] 00:00:00 Test Item Value Reference Range Interpretation Comments CHOLESTEROL (test code = 2210) 354 MG/DL TRIGLYCERIDES (test code = 2232) 2608 MG/DL HDL CHOLESTEROL (test code = 19 MG/DL 2220) CALC LDL CHOL (test code = 2237) NOTE MG/DL RISK RATIO LDL/HDL (test code = (NOTE) RATIO 2238) HEMOGLOBIN [id number] 00:00:00 Test Item Value Reference Range Interpretation Comments HEMOGLOBIN A1c (test code = 86115) 11.5 % HEMOGLOBIN [id number] 00:00:00 Test Item Value Reference Range Interpretation Comments HEMOGLOBIN A1c (test code = 78947) 11.5 % HEMOGLOBIN [id number] 00:00:00 Test Item Value Reference Range Interpretation Comments HEMOGLOBIN A1c (test code = 92826) 11.5 % MICROALBUMIN/CREATININE, RANDOM AND [id number] 00:00:00 Test Item Value Reference Range Interpretation Comments CREATININE, URINE, CONC. (test 92.4 MG/DL code = 2072) ALBUMIN, URINE, RANDOM (test code 158.5 MG/DL = 96854) CALC ALBUMIN/CREAT, RND (test 1715 MG/G code = 58221) MICROALBUMIN/CREATININE, RANDOM AND [id number] 00:00:00 Test Item Value Reference Range Interpretation Comments CREATININE, URINE, CONC. (test 92.4 MG/DL code = 2072) ALBUMIN, URINE, RANDOM (test code 158.5 MG/DL = 42234) CALC ALBUMIN/CREAT, RND (test 1715 MG/G code = 59182) LIPID [id number] 00:00:00 Test Item Value Reference Range Interpretation Comments CHOLESTEROL (test code = 2210) 354 MG/DL TRIGLYCERIDES (test code = 2232) 2608 MG/DL HDL CHOLESTEROL (test code = 19 MG/DL 2220) CALC LDL CHOL (test code = 2237) NOTE MG/DL RISK RATIO LDL/HDL (test code = (NOTE) RATIO 2238) LIPID [id number] 00:00:00 Test Item Value Reference Range Interpretation Comments CHOLESTEROL (test code = 2210) 354 MG/DL TRIGLYCERIDES (test code = 2232) 2608 MG/DL HDL CHOLESTEROL (test code = 19 MG/DL 2220) CALC LDL CHOL (test code = 2237) NOTE MG/DL RISK RATIO LDL/HDL (test code = (NOTE) RATIO 2238) HEMOGLOBIN [id number] 00:00:00 Test Item Value Reference Range Interpretation Comments HEMOGLOBIN A1c (test code = 81495) 11.5 % HEMOGLOBIN [id number] 00:00:00 Test Item Value Reference Range Interpretation Comments HEMOGLOBIN A1c (test code = 98695) 11.5 % HEMOGLOBIN [id number] 00:00:00 Test Item Value Reference Range Interpretation Comments HEMOGLOBIN A1c (test code = 33752) 11.5 % MICROALBUMIN/CREATININE, RANDOM AND [id number] 00:00:00 Test Item Value Reference Range Interpretation Comments CREATININE, URINE, CONC. (test 92.4 MG/DL code = 2072) ALBUMIN, URINE, RANDOM (test code 158.5 MG/DL = 94162) CALC ALBUMIN/CREAT, RND (test 1715 MG/G code = 10358) MICROALBUMIN/CREATININE, RANDOM AND [id number] 00:00:00 Test Item Value Reference Range Interpretation Comments CREATININE, URINE, CONC. (test 92.4 MG/DL code = 2072) ALBUMIN, URINE, RANDOM (test code 158.5 MG/DL = 10427) CALC ALBUMIN/CREAT, RND (test 1715 MG/G code = 05697) LIPID [id number] 00:00:00 Test Item Value Reference Range Interpretation Comments CHOLESTEROL (test code = 2210) 354 MG/DL TRIGLYCERIDES (test code = 2232) 2608 MG/DL HDL CHOLESTEROL (test code = 19 MG/DL 2220) CALC LDL CHOL (test code = 2237) NOTE MG/DL RISK RATIO LDL/HDL (test code = (NOTE) RATIO 2238) LIPID [id number] 00:00:00 Test Item Value Reference Range Interpretation Comments CHOLESTEROL (test code = 2210) 354 MG/DL TRIGLYCERIDES (test code = 2232) 2608 MG/DL HDL CHOLESTEROL (test code = 19 MG/DL 2220) CALC LDL CHOL (test code = 2237) NOTE MG/DL RISK RATIO LDL/HDL (test code = (NOTE) RATIO 2238) HEMOGLOBIN [id number] 00:00:00 Test Item Value Reference Range Interpretation Comments HEMOGLOBIN A1c (test code = 01562) 11.5 % HEMOGLOBIN [id number] 00:00:00 Test Item Value Reference Range Interpretation Comments HEMOGLOBIN A1c (test code = 56742) 11.5 % HEMOGLOBIN [id number] 00:00:00 Test Item Value Reference Range Interpretation Comments HEMOGLOBIN A1c (test code = 30263) 11.5 % MICROALBUMIN/CREATININE, RANDOM AND [id number] 00:00:00 Test Item Value Reference Range Interpretation Comments CREATININE, URINE, CONC. (test 92.4 MG/DL code = 2072) ALBUMIN, URINE, RANDOM (test code 158.5 MG/DL = 34601) CALC ALBUMIN/CREAT, RND (test 1715 MG/G code = 71341) MICROALBUMIN/CREATININE, RANDOM AND [id number] 00:00:00 Test Item Value Reference Range Interpretation Comments CREATININE, URINE, CONC. (test 92.4 MG/DL code = 2072) ALBUMIN, URINE, RANDOM (test code 158.5 MG/DL = 80436) CALC ALBUMIN/CREAT, RND (test 1715 MG/G code = 87298) CULTURE, [id number] 00:00:00 Test Item Value Reference Range Interpretation Comments CULTURE, URINE (test SPECIMEN NUMBER: code = 38639) [id number] CULTURE, [id number] 00:00:00 Test Item Value Reference Range Interpretation Comments CULTURE, URINE (test SPECIMEN NUMBER: code = 39993) [id number] CULTURE, [id number] 00:00:00 Test Item Value Reference Range Interpretation Comments CULTURE, URINE (test SPECIMEN NUMBER: code = 56805) [id number] CULTURE, [id number] 00:00:00 Test Item Value Reference Range Interpretation Comments CULTURE, URINE (test SPECIMEN NUMBER: code = 06873) [id number] CULTURE, [id number] 00:00:00 Test Item Value Reference Range Interpretation Comments CULTURE, URINE (test SPECIMEN NUMBER: code = 95360) [id number] CULTURE, [id number] 00:00:00 Test Item Value Reference Range Interpretation Comments CULTURE, URINE (test SPECIMEN NUMBER: code = 86059) [id number] CULTURE, [id number] 00:00:00 Test Item Value Reference Range Interpretation Comments CULTURE, URINE (test SPECIMEN NUMBER: code = 75728) [id number] CULTURE, [id number] 00:00:00 Test Item Value Reference Range Interpretation Comments CULTURE, URINE (test SPECIMEN NUMBER: code = 65917) [id number] CULTURE, [id number] 00:00:00 Test Item Value Reference Range Interpretation Comments CULTURE, URINE (test SPECIMEN NUMBER: code = 11267) [id number] CULTURE, [id number] 00:00:00 Test Item Value Reference Range Interpretation Comments CULTURE, URINE (test SPECIMEN NUMBER: code = 80270) [id number] CULTURE, [id number] 00:00:00 Test Item Value Reference Range Interpretation Comments CULTURE, URINE (test SPECIMEN NUMBER: code = 80781) [id number] CULTURE, [id number] 00:00:00 Test Item Value Reference Range Interpretation Comments CULTURE, URINE (test SPECIMEN NUMBER: code = 51057) [id number] CULTURE, [id number] 00:00:00 Test Item Value Reference Range Interpretation Comments CULTURE, URINE (test SPECIMEN NUMBER: code = 38656) [id number] CULTURE, [id number] 00:00:00 Test Item Value Reference Range Interpretation Comments CULTURE, URINE (test SPECIMEN NUMBER: code = 42850) [id number] CULTURE, [id number] 00:00:00 Test Item Value Reference Range Interpretation Comments CULTURE, URINE (test SPECIMEN NUMBER: code = 87380) [id number] CULTURE, [id number] 00:00:00 Test Item Value Reference Range Interpretation Comments CULTURE, URINE (test SPECIMEN NUMBER: code = 76331) [id number] CULTURE, [id number] 00:00:00 Test Item Value Reference Range Interpretation Comments CULTURE, URINE (test SPECIMEN NUMBER: code = 17425) [id number] CULTURE, [id number] 00:00:00 Test Item Value Reference Range Interpretation Comments CULTURE, URINE (test SPECIMEN NUMBER: code = 81345) [id number] CULTURE, [id number] 00:00:00 Test Item Value Reference Range Interpretation Comments CULTURE, URINE (test SPECIMEN NUMBER: code = 27471) [id number] CULTURE, [id number] 00:00:00 Test Item Value Reference Range Interpretation Comments CULTURE, URINE (test SPECIMEN NUMBER: code = 61343) [id number] CULTURE, [id number] 00:00:00 Test Item Value Reference Range Interpretation Comments CULTURE, URINE (test SPECIMEN NUMBER: code = 87093) [id number] VAGINAL PATHOGENS DNA [id number] 00:00:00 Test Item Value Reference Range Interpretation Comments ANDIE SPECIES (test code = 96944) POSITIVE G. VAGINALIS (test code = 89474) NEGATIVE T. VAGINALIS (test code = 81271) NEGATIVE VAGINAL PATHOGENS DNA [id number] 00:00:00 Test Item Value Reference Range Interpretation Comments ANDIE SPECIES (test code = 54355) POSITIVE G. VAGINALIS (test code = 21963) NEGATIVE T. VAGINALIS (test code = 10048) NEGATIVE VAGINAL PATHOGENS DNA [id number] 00:00:00 Test Item Value Reference Range Interpretation Comments ANDIE SPECIES (test code = 67859) POSITIVE G. VAGINALIS (test code = 49672) NEGATIVE T. VAGINALIS (test code = 75255) NEGATIVE VAGINAL PATHOGENS DNA [id number] 00:00:00 Test Item Value Reference Range Interpretation Comments ANDIE SPECIES (test code = 13711) POSITIVE G. VAGINALIS (test code = 04563) NEGATIVE T. VAGINALIS (test code = 99790) NEGATIVE VAGINAL PATHOGENS DNA [id number] 00:00:00 Test Item Value Reference Range Interpretation Comments ANDIE SPECIES (test code = 22407) POSITIVE G. VAGINALIS (test code = 06197) NEGATIVE T. VAGINALIS (test code = 37470) NEGATIVE VAGINAL PATHOGENS DNA [id number] 00:00:00 Test Item Value Reference Range Interpretation Comments ANDIE SPECIES (test code = 19846) POSITIVE G. VAGINALIS (test code = 24232) NEGATIVE T. VAGINALIS (test code = 24113) NEGATIVE VAGINAL PATHOGENS DNA [id number] 00:00:00 Test Item Value Reference Range Interpretation Comments ANDIE SPECIES (test code = 79147) POSITIVE G. VAGINALIS (test code = 84839) NEGATIVE T. VAGINALIS (test code = 12678) NEGATIVE VAGINAL PATHOGENS DNA [id number] 00:00:00 Test Item Value Reference Range Interpretation Comments ANDIE SPECIES (test code = 90763) POSITIVE G. VAGINALIS (test code = 82382) NEGATIVE T. VAGINALIS (test code = 81372) NEGATIVE VAGINAL PATHOGENS DNA [id number] 00:00:00 Test Item Value Reference Range Interpretation Comments ANDIE SPECIES (test code = 62387) POSITIVE G. VAGINALIS (test code = 61241) NEGATIVE T. VAGINALIS (test code = 58184) NEGATIVE VAGINAL PATHOGENS DNA [id number] 00:00:00 Test Item Value Reference Range Interpretation Comments ANDIE SPECIES (test code = 57802) POSITIVE G. VAGINALIS (test code = 49266) NEGATIVE T. VAGINALIS (test code = 04336) NEGATIVE VAGINAL PATHOGENS DNA [id number] 00:00:00 Test Item Value Reference Range Interpretation Comments ANDIE SPECIES (test code = 80102) POSITIVE G. VAGINALIS (test code = 32053) NEGATIVE T. VAGINALIS (test code = 26298) NEGATIVE VAGINAL PATHOGENS DNA [id number] 00:00:00 Test Item Value Reference Range Interpretation Comments ANDIE SPECIES (test code = 14926) POSITIVE G. VAGINALIS (test code = 46306) NEGATIVE T. VAGINALIS (test code = 92928) NEGATIVE VAGINAL PATHOGENS DNA [id number] 00:00:00 Test Item Value Reference Range Interpretation Comments ANDIE SPECIES (test code = 71869) POSITIVE G. VAGINALIS (test code = 17954) NEGATIVE T. VAGINALIS (test code = 62589) NEGATIVE VAGINAL PATHOGENS DNA [id number] 00:00:00 Test Item Value Reference Range Interpretation Comments ANDIE SPECIES (test code = 83731) POSITIVE G. VAGINALIS (test code = 90591) NEGATIVE T. VAGINALIS (test code = 98222) NEGATIVE VAGINAL PATHOGENS DNA [id number] 00:00:00 Test Item Value Reference Range Interpretation Comments ANDIE SPECIES (test code = 36187) POSITIVE G. VAGINALIS (test code = 54783) NEGATIVE T. VAGINALIS (test code = 86216) NEGATIVE VAGINAL PATHOGENS DNA [id number] 00:00:00 Test Item Value Reference Range Interpretation Comments ANDIE SPECIES (test code = 68360) POSITIVE G. VAGINALIS (test code = 21486) NEGATIVE T. VAGINALIS (test code = 27017) NEGATIVE VAGINAL PATHOGENS DNA [id number] 00:00:00 Test Item Value Reference Range Interpretation Comments ANDIE SPECIES (test code = 08180) POSITIVE G. VAGINALIS (test code = 00933) NEGATIVE T. VAGINALIS (test code = 82747) NEGATIVE VAGINAL PATHOGENS DNA [id number] 00:00:00 Test Item Value Reference Range Interpretation Comments ANDIE SPECIES (test code = 39081) POSITIVE G. VAGINALIS (test code = 65863) NEGATIVE T. VAGINALIS (test code = 55491) NEGATIVE VAGINAL PATHOGENS DNA [id number] 00:00:00 Test Item Value Reference Range Interpretation Comments ANDIE SPECIES (test code = 86219) POSITIVE G. VAGINALIS (test code = 84999) NEGATIVE T. VAGINALIS (test code = 88409) NEGATIVE VAGINAL PATHOGENS DNA [id number] 00:00:00 Test Item Value Reference Range Interpretation Comments ANDIE SPECIES (test code = 84672) POSITIVE G. VAGINALIS (test code = 13371) NEGATIVE T. VAGINALIS (test code = 87888) NEGATIVE VAGINAL PATHOGENS DNA [id number] 00:00:00 Test Item Value Reference Range Interpretation Comments ANDIE SPECIES (test code = 87297) POSITIVE G. VAGINALIS (test code = 65850) NEGATIVE T. VAGINALIS (test code = 70364) NEGATIVE VAGINAL PATHOGENS DNA [id number] 00:00:00 Test Item Value Reference Range Interpretation Comments ANDIE SPECIES (test code = 31906) NEGATIVE G. VAGINALIS (test code = 04973) NEGATIVE T. VAGINALIS (test code = 41224) NEGATIVE VAGINAL PATHOGENS DNA [id number] 00:00:00 Test Item Value Reference Range Interpretation Comments ANDIE SPECIES (test code = 99494) NEGATIVE G. VAGINALIS (test code = 82676) NEGATIVE T. VAGINALIS (test code = 75936) NEGATIVE VAGINAL PATHOGENS DNA [id number] 00:00:00 Test Item Value Reference Range Interpretation Comments ANDIE SPECIES (test code = 15399) NEGATIVE G. VAGINALIS (test code = 29156) NEGATIVE T. VAGINALIS (test code = 37746) NEGATIVE VAGINAL PATHOGENS DNA [id number] 00:00:00 Test Item Value Reference Range Interpretation Comments ANDIE SPECIES (test code = 92257) NEGATIVE G. VAGINALIS (test code = 72176) NEGATIVE T. VAGINALIS (test code = 45975) NEGATIVE VAGINAL PATHOGENS DNA [id number] 00:00:00 Test Item Value Reference Range Interpretation Comments ANDIE SPECIES (test code = 96229) NEGATIVE G. VAGINALIS (test code = 52649) NEGATIVE T. VAGINALIS (test code = 89533) NEGATIVE VAGINAL PATHOGENS DNA [id number] 00:00:00 Test Item Value Reference Range Interpretation Comments ANDIE SPECIES (test code = 34943) NEGATIVE G. VAGINALIS (test code = 38030) NEGATIVE T. VAGINALIS (test code = 60377) NEGATIVE VAGINAL PATHOGENS DNA [id number] 00:00:00 Test Item Value Reference Range Interpretation Comments ANDIE SPECIES (test code = 05215) NEGATIVE G. VAGINALIS (test code = 34645) NEGATIVE T. VAGINALIS (test code = 75456) NEGATIVE VAGINAL PATHOGENS DNA [id number] 00:00:00 Test Item Value Reference Range Interpretation Comments ANDIE SPECIES (test code = 40853) NEGATIVE G. VAGINALIS (test code = 21759) NEGATIVE T. VAGINALIS (test code = 64558) NEGATIVE VAGINAL PATHOGENS DNA [id number] 00:00:00 Test Item Value Reference Range Interpretation Comments ANDIE SPECIES (test code = 01412) NEGATIVE G. VAGINALIS (test code = 17034) NEGATIVE T. VAGINALIS (test code = 17189) NEGATIVE VAGINAL PATHOGENS DNA [id number] 00:00:00 Test Item Value Reference Range Interpretation Comments ANDIE SPECIES (test code = 71377) NEGATIVE G. VAGINALIS (test code = 58108) NEGATIVE T. VAGINALIS (test code = 63656) NEGATIVE VAGINAL PATHOGENS DNA [id number] 00:00:00 Test Item Value Reference Range Interpretation Comments ANDIE SPECIES (test code = 74746) NEGATIVE G. VAGINALIS (test code = 58748) NEGATIVE T. VAGINALIS (test code = 38405) NEGATIVE VAGINAL PATHOGENS DNA [id number] 00:00:00 Test Item Value Reference Range Interpretation Comments ANDIE SPECIES (test code = 69847) NEGATIVE G. VAGINALIS (test code = 38638) NEGATIVE T. VAGINALIS (test code = 21905) NEGATIVE VAGINAL PATHOGENS DNA [id number] 00:00:00 Test Item Value Reference Range Interpretation Comments ANDIE SPECIES (test code = 19947) NEGATIVE G. VAGINALIS (test code = 16442) NEGATIVE T. VAGINALIS (test code = 46365) NEGATIVE VAGINAL PATHOGENS DNA [id number] 00:00:00 Test Item Value Reference Range Interpretation Comments ANDIE SPECIES (test code = 33936) NEGATIVE G. VAGINALIS (test code = 28949) NEGATIVE T. VAGINALIS (test code = 21457) NEGATIVE VAGINAL PATHOGENS DNA [id number] 00:00:00 Test Item Value Reference Range Interpretation Comments ANDIE SPECIES (test code = 85742) NEGATIVE G. VAGINALIS (test code = 79946) NEGATIVE T. VAGINALIS (test code = 54273) NEGATIVE VAGINAL PATHOGENS DNA [id number] 00:00:00 Test Item Value Reference Range Interpretation Comments ANDIE SPECIES (test code = 13482) NEGATIVE G. VAGINALIS (test code = 78312) NEGATIVE T. VAGINALIS (test code = 12620) NEGATIVE VAGINAL PATHOGENS DNA [id number] 00:00:00 Test Item Value Reference Range Interpretation Comments ANDIE SPECIES (test code = 89615) NEGATIVE G. VAGINALIS (test code = 28908) NEGATIVE T. VAGINALIS (test code = 47770) NEGATIVE VAGINAL PATHOGENS DNA [id number] 00:00:00 Test Item Value Reference Range Interpretation Comments ANDIE SPECIES (test code = 42357) NEGATIVE G. VAGINALIS (test code = 80038) NEGATIVE T. VAGINALIS (test code = 48324) NEGATIVE VAGINAL PATHOGENS DNA [id number] 00:00:00 Test Item Value Reference Range Interpretation Comments ANDIE SPECIES (test code = 81652) NEGATIVE G. VAGINALIS (test code = 49563) NEGATIVE T. VAGINALIS (test code = 32776) NEGATIVE VAGINAL PATHOGENS DNA [id number] 00:00:00 Test Item Value Reference Range Interpretation Comments ANDIE SPECIES (test code = 51131) NEGATIVE G. VAGINALIS (test code = 07901) NEGATIVE T. VAGINALIS (test code = 08133) NEGATIVE VAGINAL PATHOGENS DNA [id number] 00:00:00 Test Item Value Reference Range Interpretation Comments ANDIE SPECIES (test code = 69527) NEGATIVE G. VAGINALIS (test code = 72885) NEGATIVE T. VAGINALIS (test code = 37327) NEGATIVE VAGINAL PATHOGENS DNA [id number] 00:00:00 Test Item Value Reference Range Interpretation Comments ANDIE SPECIES (test code = 26360) NEGATIVE G. VAGINALIS (test code = 87226) POSITIVE T. VAGINALIS (test code = 97821) NEGATIVE VAGINAL PATHOGENS DNA [id number] 00:00:00 Test Item Value Reference Range Interpretation Comments ANDIE SPECIES (test code = 34503) NEGATIVE G. VAGINALIS (test code = 10191) POSITIVE T. VAGINALIS (test code = 27169) NEGATIVE VAGINAL PATHOGENS DNA [id number] 00:00:00 Test Item Value Reference Range Interpretation Comments ANDIE SPECIES (test code = 74423) NEGATIVE G. VAGINALIS (test code = 39884) POSITIVE T. VAGINALIS (test code = 92683) NEGATIVE VAGINAL PATHOGENS DNA [id number] 00:00:00 Test Item Value Reference Range Interpretation Comments ANDIE SPECIES (test code = 15609) NEGATIVE G. VAGINALIS (test code = 60938) POSITIVE T. VAGINALIS (test code = 59073) NEGATIVE VAGINAL PATHOGENS DNA [id number] 00:00:00 Test Item Value Reference Range Interpretation Comments ANDIE SPECIES (test code = 75323) NEGATIVE G. VAGINALIS (test code = 40145) POSITIVE T. VAGINALIS (test code = 29113) NEGATIVE VAGINAL PATHOGENS DNA [id number] 00:00:00 Test Item Value Reference Range Interpretation Comments ANDIE SPECIES (test code = ) NEGATIVE G. VAGINALIS (test code = 14323) POSITIVE T. VAGINALIS (test code = 42905) NEGATIVE VAGINAL PATHOGENS DNA [id number] 00:00:00 Test Item Value Reference Range Interpretation Comments ANDIE SPECIES (test code = 03643) NEGATIVE G. VAGINALIS (test code = 51836) POSITIVE T. VAGINALIS (test code = 20777) NEGATIVE VAGINAL PATHOGENS DNA [id number] 00:00:00 Test Item Value Reference Range Interpretation Comments ANDIE SPECIES (test code = 31529) NEGATIVE G. VAGINALIS (test code = 82329) POSITIVE T. VAGINALIS (test code = 80183) NEGATIVE VAGINAL PATHOGENS DNA [id number] 00:00:00 Test Item Value Reference Range Interpretation Comments ANDIE SPECIES (test code = 19442) NEGATIVE G. VAGINALIS (test code = 13463) POSITIVE T. VAGINALIS (test code = 76526) NEGATIVE VAGINAL PATHOGENS DNA [id number] 00:00:00 Test Item Value Reference Range Interpretation Comments ANDIE SPECIES (test code = 54122) NEGATIVE G. VAGINALIS (test code = 70280) POSITIVE T. VAGINALIS (test code = 89381) NEGATIVE VAGINAL PATHOGENS DNA [id number] 00:00:00 Test Item Value Reference Range Interpretation Comments ANDIE SPECIES (test code = ) NEGATIVE G. VAGINALIS (test code = 71401) POSITIVE T. VAGINALIS (test code = 46838) NEGATIVE VAGINAL PATHOGENS DNA [id number] 00:00:00 Test Item Value Reference Range Interpretation Comments ANDIE SPECIES (test code = 93115) NEGATIVE G. VAGINALIS (test code = 19538) POSITIVE T. VAGINALIS (test code = 77250) NEGATIVE VAGINAL PATHOGENS DNA [id number] 00:00:00 Test Item Value Reference Range Interpretation Comments ANDIE SPECIES (test code = 27329) NEGATIVE G. VAGINALIS (test code = 00071) POSITIVE T. VAGINALIS (test code = 04652) NEGATIVE VAGINAL PATHOGENS DNA [id number] 00:00:00 Test Item Value Reference Range Interpretation Comments ANDIE SPECIES (test code = 59437) NEGATIVE G. VAGINALIS (test code = 40871) POSITIVE T. VAGINALIS (test code = 73605) NEGATIVE VAGINAL PATHOGENS DNA [id number] 00:00:00 Test Item Value Reference Range Interpretation Comments ANDIE SPECIES (test code = 26864) NEGATIVE G. VAGINALIS (test code = 08686) POSITIVE T. VAGINALIS (test code = 01739) NEGATIVE VAGINAL PATHOGENS DNA [id number] 00:00:00 Test Item Value Reference Range Interpretation Comments ANDIE SPECIES (test code = 62622) NEGATIVE G. VAGINALIS (test code = 80108) POSITIVE T. VAGINALIS (test code = 78126) NEGATIVE VAGINAL PATHOGENS DNA [id number] 00:00:00 Test Item Value Reference Range Interpretation Comments ANDIE SPECIES (test code = 45224) NEGATIVE G. VAGINALIS (test code = 47694) POSITIVE T. VAGINALIS (test code = 26142) NEGATIVE VAGINAL PATHOGENS DNA [id number] 00:00:00 Test Item Value Reference Range Interpretation Comments ANDIE SPECIES (test code = 88256) NEGATIVE G. VAGINALIS (test code = 23999) POSITIVE T. VAGINALIS (test code = 05737) NEGATIVE VAGINAL PATHOGENS DNA [id number] 00:00:00 Test Item Value Reference Range Interpretation Comments ANDIE SPECIES (test code = 43619) NEGATIVE G. VAGINALIS (test code = 22407) POSITIVE T. VAGINALIS (test code = 96126) NEGATIVE VAGINAL PATHOGENS DNA [id number] 00:00:00 Test Item Value Reference Range Interpretation Comments ANDIE SPECIES (test code = ) NEGATIVE G. VAGINALIS (test code = 67885) POSITIVE T. VAGINALIS (test code = 41358) NEGATIVE VAGINAL PATHOGENS DNA [id number] 00:00:00 Test Item Value Reference Range Interpretation Comments ANDIE SPECIES (test code = ) NEGATIVE G. VAGINALIS (test code = 53527) POSITIVE T. VAGINALIS (test code = 59742) NEGATIVE COMPREHENSIVE METABOLIC [id number] 00:00:00 Test Item Value Reference Range Interpretation Comments GLUCOSE (test code = 2217) 353 MG/DL BUN (test code = 2208) 27 MG/DL CREATININE (test code = 2214) 0.90 MG/DL eGFR AMER. (test code 92 ML/MIN/1.73 = 82642) eGFR NON- AMER. (test 79 ML/MIN/1.73 code = 07072) CALC BUN/CREAT (test code = 30 RATIO [...] code = 2219) 18 U/L COMPREHENSIVE METABOLIC [id number] 00:00:00 Test Item Value Reference Range Interpretation Comments GLUCOSE (test code = 2217) 353 MG/DL BUN (test code = 2208) 27 MG/DL CREATININE (test code = 2214) 0.90 MG/DL eGFR AMER. (test code 92 ML/MIN/1.73 = 98564) eGFR NON- AMER. (test 79 ML/MIN/1.73 code = 63569) CALC BUN/CREAT (test code = 30 RATIO [...] (test code = 2219) 18 U/L LIPID [id number] 00:00:00 Test Item Value Reference Range Interpretation Comments CHOLESTEROL (test code = 2210) 412 MG/DL TRIGLYCERIDES (test code = 2232) 2520 MG/DL HDL CHOLESTEROL (test code = 16 MG/DL 2220) CALC LDL CHOL (test code = 2237) NOTE MG/DL RISK RATIO LDL/HDL (test code = (NOTE) RATIO 2238) LIPID [id number] 00:00:00 Test Item Value Reference Range Interpretation Comments CHOLESTEROL (test code = 2210) 412 MG/DL TRIGLYCERIDES (test code = 2232) 2520 MG/DL HDL CHOLESTEROL (test code = 16 MG/DL 2220) CALC LDL CHOL (test code = 2237) NOTE MG/DL RISK RATIO LDL/HDL (test code = (NOTE) RATIO 2238) HEMOGLOBIN [id number] 00:00:00 Test Item Value Reference Range Interpretation Comments HEMOGLOBIN A1c (test code = 15410) 10.7 % HEMOGLOBIN [id number] 00:00:00 Test Item Value Reference Range Interpretation Comments HEMOGLOBIN A1c (test code = 44227) 10.7 % HEMOGLOBIN [id number] 00:00:00 Test Item Value Reference Range Interpretation Comments HEMOGLOBIN A1c (test code = 83718) 10.7 % [id number] 00:00:00 Test Item Value Reference Range Interpretation Comments TSH, THIRD GENERATION (test code 0.777 UIU/ML = 2821) [id number] 00:00:00 Test Item Value Reference Range Interpretation Comments TSH, THIRD GENERATION (test code 0.777 UIU/ML = 2821) [id number] 00:00:00 Test Item Value Reference Range Interpretation Comments TSH, THIRD GENERATION (test code 0.777 UIU/ML = 2821) MICROALBUMIN/CREATININE, RANDOM AND [id number] 00:00:00 Test Item Value Reference Range Interpretation Comments CREATININE, URINE, CONC. (test 127.3 MG/DL code = 2072) ALBUMIN, URINE, RANDOM (test code 65.2 MG/DL = 64905) CALC ALBUMIN/CREAT, RND (test 512 MG/G code = 64576) MICROALBUMIN/CREATININE, RANDOM AND [id number] 00:00:00 Test Item Value Reference Range Interpretation Comments CREATININE, URINE, CONC. (test 127.3 MG/DL code = 2072) ALBUMIN, URINE, RANDOM (test code 65.2 MG/DL = 09038) CALC ALBUMIN/CREAT, RND (test 512 MG/G code = 43862) COMPREHENSIVE METABOLIC [id number] 00:00:00 Test Item Value Reference Range Interpretation Comments GLUCOSE (test code = 2217) 353 MG/DL BUN (test code = 2208) 27 MG/DL CREATININE (test code = 2214) 0.90 MG/DL eGFR AMER. (test code 92 ML/MIN/1.73 = 86898) eGFR NON- AMER. (test 79 ML/MIN/1.73 code = 59790) CALC BUN/CREAT (test code = 30 RATIO [...] code = 2219) 18 U/L COMPREHENSIVE METABOLIC [id number] 00:00:00 Test Item Value Reference Range Interpretation Comments GLUCOSE (test code = 2217) 353 MG/DL BUN (test code = 2208) 27 MG/DL CREATININE (test code = 2214) 0.90 MG/DL eGFR AMER. (test code 92 ML/MIN/1.73 = 79023) eGFR NON- AMER. (test 79 ML/MIN/1.73 code = 01459) CALC BUN/CREAT (test code = 30 RATIO [...] (test code = 2219) 18 U/L LIPID [id number] 00:00:00 Test Item Value Reference Range Interpretation Comments CHOLESTEROL (test code = 2210) 412 MG/DL TRIGLYCERIDES (test code = 2232) 2520 MG/DL HDL CHOLESTEROL (test code = 16 MG/DL 2220) CALC LDL CHOL (test code = 2237) NOTE MG/DL RISK RATIO LDL/HDL (test code = (NOTE) RATIO 2238) LIPID [id number] 00:00:00 Test Item Value Reference Range Interpretation Comments CHOLESTEROL (test code = 2210) 412 MG/DL TRIGLYCERIDES (test code = 2232) 2520 MG/DL HDL CHOLESTEROL (test code = 16 MG/DL 2220) CALC LDL CHOL (test code = 2237) NOTE MG/DL RISK RATIO LDL/HDL (test code = (NOTE) RATIO 2238) HEMOGLOBIN [id number] 00:00:00 Test Item Value Reference Range Interpretation Comments HEMOGLOBIN A1c (test code = 47598) 10.7 % HEMOGLOBIN [id number] 00:00:00 Test Item Value Reference Range Interpretation Comments HEMOGLOBIN A1c (test code = 71867) 10.7 % HEMOGLOBIN [id number] 00:00:00 Test Item Value Reference Range Interpretation Comments HEMOGLOBIN A1c (test code = 77362) 10.7 % [id number] 00:00:00 Test Item Value Reference Range Interpretation Comments TSH, THIRD GENERATION (test code 0.777 UIU/ML = 2821) [id number] 00:00:00 Test Item Value Reference Range Interpretation Comments TSH, THIRD GENERATION (test code 0.777 UIU/ML = 2821) [id number] 00:00:00 Test Item Value Reference Range Interpretation Comments TSH, THIRD GENERATION (test code 0.777 UIU/ML = 2821) MICROALBUMIN/CREATININE, RANDOM AND [id number] 00:00:00 Test Item Value Reference Range Interpretation Comments CREATININE, URINE, CONC. (test 127.3 MG/DL code = 2072) ALBUMIN, URINE, RANDOM (test code 65.2 MG/DL = 80541) CALC ALBUMIN/CREAT, RND (test 512 MG/G code = 50752) MICROALBUMIN/CREATININE, RANDOM AND [id number] 00:00:00 Test Item Value Reference Range Interpretation Comments CREATININE, URINE, CONC. (test 127.3 MG/DL code = 2072) ALBUMIN, URINE, RANDOM (test code 65.2 MG/DL = 11855) CALC ALBUMIN/CREAT, RND (test 512 MG/G code = 22932) COMPREHENSIVE METABOLIC [id number] 00:00:00 Test Item Value Reference Range Interpretation Comments GLUCOSE (test code = 2217) 353 MG/DL BUN (test code = 2208) 27 MG/DL CREATININE (test code = 2214) 0.90 MG/DL eGFR AMER. (test code 92 ML/MIN/1.73 = 30865) eGFR NON- AMER. (test 79 ML/MIN/1.73 code = 99791) CALC BUN/CREAT (test code = 30 RATIO [...] code = 2219) 18 U/L COMPREHENSIVE METABOLIC [id number] 00:00:00 Test Item Value Reference Range Interpretation Comments GLUCOSE (test code = 2217) 353 MG/DL BUN (test code = 2208) 27 MG/DL CREATININE (test code = 2214) 0.90 MG/DL eGFR AMER. (test code 92 ML/MIN/1.73 = 45141) eGFR NON- AMER. (test 79 ML/MIN/1.73 code = 23821) CALC BUN/CREAT (test code = 30 RATIO [...] (test code = 2219) 18 U/L LIPID [id number] 00:00:00 Test Item Value Reference Range Interpretation Comments CHOLESTEROL (test code = 2210) 412 MG/DL TRIGLYCERIDES (test code = 2232) 2520 MG/DL HDL CHOLESTEROL (test code = 16 MG/DL 2220) CALC LDL CHOL (test code = 2237) NOTE MG/DL RISK RATIO LDL/HDL (test code = (NOTE) RATIO 2238) LIPID [id number] 00:00:00 Test Item Value Reference Range Interpretation Comments CHOLESTEROL (test code = 2210) 412 MG/DL TRIGLYCERIDES (test code = 2232) 2520 MG/DL HDL CHOLESTEROL (test code = 16 MG/DL 2220) CALC LDL CHOL (test code = 2237) NOTE MG/DL RISK RATIO LDL/HDL (test code = (NOTE) RATIO 2238) HEMOGLOBIN [id number] 00:00:00 Test Item Value Reference Range Interpretation Comments HEMOGLOBIN A1c (test code = 78299) 10.7 % HEMOGLOBIN [id number] 00:00:00 Test Item Value Reference Range Interpretation Comments HEMOGLOBIN A1c (test code = 40960) 10.7 % HEMOGLOBIN [id number] 00:00:00 Test Item Value Reference Range Interpretation Comments HEMOGLOBIN A1c (test code = 98345) 10.7 % [id number] 00:00:00 Test Item Value Reference Range Interpretation Comments TSH, THIRD GENERATION (test code 0.777 UIU/ML = 2821) [id number] 00:00:00 Test Item Value Reference Range Interpretation Comments TSH, THIRD GENERATION (test code 0.777 UIU/ML = 2821) [id number] 00:00:00 Test Item Value Reference Range Interpretation Comments TSH, THIRD GENERATION (test code 0.777 UIU/ML = 2821) MICROALBUMIN/CREATININE, RANDOM AND [id number] 00:00:00 Test Item Value Reference Range Interpretation Comments CREATININE, URINE, CONC. (test 127.3 MG/DL code = 2072) ALBUMIN, URINE, RANDOM (test code 65.2 MG/DL = 12582) CALC ALBUMIN/CREAT, RND (test 512 MG/G code = 12120) MICROALBUMIN/CREATININE, RANDOM AND [id number] 00:00:00 Test Item Value Reference Range Interpretation Comments CREATININE, URINE, CONC. (test 127.3 MG/DL code = 2072) ALBUMIN, URINE, RANDOM (test code 65.2 MG/DL = 00267) CALC ALBUMIN/CREAT, RND (test 512 MG/G code = 93890) COMPREHENSIVE METABOLIC [id number] 00:00:00 Test Item Value Reference Range Interpretation Comments GLUCOSE (test code = 2217) 353 MG/DL BUN (test code = 2208) 27 MG/DL CREATININE (test code = 2214) 0.90 MG/DL eGFR AMER. (test code 92 ML/MIN/1.73 = 24698) eGFR NON- AMER. (test 79 ML/MIN/1.73 code = 65851) CALC BUN/CREAT (test code = 30 RATIO [...] code = 2219) 18 U/L COMPREHENSIVE METABOLIC [id number] 00:00:00 Test Item Value Reference Range Interpretation Comments GLUCOSE (test code = 2217) 353 MG/DL BUN (test code = 2208) 27 MG/DL CREATININE (test code = 2214) 0.90 MG/DL eGFR AMER. (test code 92 ML/MIN/1.73 = 46976) eGFR NON- AMER. (test 79 ML/MIN/1.73 code = 31956) CALC BUN/CREAT (test code = 30 RATIO [...] (test code = 2219) 18 U/L LIPID [id number] 00:00:00 Test Item Value Reference Range Interpretation Comments CHOLESTEROL (test code = 2210) 412 MG/DL TRIGLYCERIDES (test code = 2232) 2520 MG/DL HDL CHOLESTEROL (test code = 16 MG/DL 2220) CALC LDL CHOL (test code = 2237) NOTE MG/DL RISK RATIO LDL/HDL (test code = (NOTE) RATIO 2238) LIPID [id number] 00:00:00 Test Item Value Reference Range Interpretation Comments CHOLESTEROL (test code = 2210) 412 MG/DL TRIGLYCERIDES (test code = 2232) 2520 MG/DL HDL CHOLESTEROL (test code = 16 MG/DL 2220) CALC LDL CHOL (test code = 2237) NOTE MG/DL RISK RATIO LDL/HDL (test code = (NOTE) RATIO 2238) HEMOGLOBIN [id number] 00:00:00 Test Item Value Reference Range Interpretation Comments HEMOGLOBIN A1c (test code = 65256) 10.7 % HEMOGLOBIN [id number] 00:00:00 Test Item Value Reference Range Interpretation Comments HEMOGLOBIN A1c (test code = 92634) 10.7 % HEMOGLOBIN [id number] 00:00:00 Test Item Value Reference Range Interpretation Comments HEMOGLOBIN A1c (test code = 34949) 10.7 % [id number] 00:00:00 Test Item Value Reference Range Interpretation Comments TSH, THIRD GENERATION (test code 0.777 UIU/ML = 2821) [id number] 00:00:00 Test Item Value Reference Range Interpretation Comments TSH, THIRD GENERATION (test code 0.777 UIU/ML = 2821) [id number] 00:00:00 Test Item Value Reference Range Interpretation Comments TSH, THIRD GENERATION (test code 0.777 UIU/ML = 2821) MICROALBUMIN/CREATININE, RANDOM AND [id number] 00:00:00 Test Item Value Reference Range Interpretation Comments CREATININE, URINE, CONC. (test 127.3 MG/DL code = 2072) ALBUMIN, URINE, RANDOM (test code 65.2 MG/DL = 18044) CALC ALBUMIN/CREAT, RND (test 512 MG/G code = 95285) MICROALBUMIN/CREATININE, RANDOM AND [id number] 00:00:00 Test Item Value Reference Range Interpretation Comments CREATININE, URINE, CONC. (test 127.3 MG/DL code = 2072) ALBUMIN, URINE, RANDOM (test code 65.2 MG/DL = 20633) CALC ALBUMIN/CREAT, RND (test 512 MG/G code = 39487) COMPREHENSIVE METABOLIC [id number] 00:00:00 Test Item Value Reference Range Interpretation Comments GLUCOSE (test code = 2217) 353 MG/DL BUN (test code = 2208) 27 MG/DL CREATININE (test code = 2214) 0.90 MG/DL eGFR AMER. (test code 92 ML/MIN/1.73 = 51274) eGFR NON- AMER. (test 79 ML/MIN/1.73 code = 47498) CALC BUN/CREAT (test code = 30 RATIO [...] code = 2219) 18 U/L COMPREHENSIVE METABOLIC [id number] 00:00:00 Test Item Value Reference Range Interpretation Comments GLUCOSE (test code = 2217) 353 MG/DL BUN (test code = 2208) 27 MG/DL CREATININE (test code = 2214) 0.90 MG/DL eGFR AMER. (test code 92 ML/MIN/1.73 = 55476) eGFR NON- AMER. (test 79 ML/MIN/1.73 code = 20308) CALC BUN/CREAT (test code = 30 RATIO [...] (test code = 2219) 18 U/L LIPID [id number] 00:00:00 Test Item Value Reference Range Interpretation Comments CHOLESTEROL (test code = 2210) 412 MG/DL TRIGLYCERIDES (test code = 2232) 2520 MG/DL HDL CHOLESTEROL (test code = 16 MG/DL 2220) CALC LDL CHOL (test code = 2237) NOTE MG/DL RISK RATIO LDL/HDL (test code = (NOTE) RATIO 2238) LIPID [id number] 00:00:00 Test Item Value Reference Range Interpretation Comments CHOLESTEROL (test code = 2210) 412 MG/DL TRIGLYCERIDES (test code = 2232) 2520 MG/DL HDL CHOLESTEROL (test code = 16 MG/DL 2220) CALC LDL CHOL (test code = 2237) NOTE MG/DL RISK RATIO LDL/HDL (test code = (NOTE) RATIO 2238) HEMOGLOBIN [id number] 00:00:00 Test Item Value Reference Range Interpretation Comments HEMOGLOBIN A1c (test code = 35619) 10.7 % HEMOGLOBIN [id number] 00:00:00 Test Item Value Reference Range Interpretation Comments HEMOGLOBIN A1c (test code = 57220) 10.7 % HEMOGLOBIN [id number] 00:00:00 Test Item Value Reference Range Interpretation Comments HEMOGLOBIN A1c (test code = 98562) 10.7 % [id number] 00:00:00 Test Item Value Reference Range Interpretation Comments TSH, THIRD GENERATION (test code 0.777 UIU/ML = 2821) [id number] 00:00:00 Test Item Value Reference Range Interpretation Comments TSH, THIRD GENERATION (test code 0.777 UIU/ML = 2821) [id number] 00:00:00 Test Item Value Reference Range Interpretation Comments TSH, THIRD GENERATION (test code 0.777 UIU/ML = 2821) MICROALBUMIN/CREATININE, RANDOM AND [id number] 00:00:00 Test Item Value Reference Range Interpretation Comments CREATININE, URINE, CONC. (test 127.3 MG/DL code = 2072) ALBUMIN, URINE, RANDOM (test code 65.2 MG/DL = 45333) CALC ALBUMIN/CREAT, RND (test 512 MG/G code = 28107) MICROALBUMIN/CREATININE, RANDOM AND [id number] 00:00:00 Test Item Value Reference Range Interpretation Comments CREATININE, URINE, CONC. (test 127.3 MG/DL code = 2072) ALBUMIN, URINE, RANDOM (test code 65.2 MG/DL = 07238) CALC ALBUMIN/CREAT, RND (test 512 MG/G code = 94800) COMPREHENSIVE METABOLIC [id number] 00:00:00 Test Item Value Reference Range Interpretation Comments GLUCOSE (test code = 2217) 353 MG/DL BUN (test code = 2208) 27 MG/DL CREATININE (test code = 2214) 0.90 MG/DL eGFR AMER. (test code 92 ML/MIN/1.73 = 07843) eGFR NON- AMER. (test 79 ML/MIN/1.73 code = 86185) CALC BUN/CREAT (test code = 30 RATIO [...] code = 2219) 18 U/L COMPREHENSIVE METABOLIC [id number] 00:00:00 Test Item Value Reference Range Interpretation Comments GLUCOSE (test code = 2217) 353 MG/DL BUN (test code = 2208) 27 MG/DL CREATININE (test code = 2214) 0.90 MG/DL eGFR AMER. (test code 92 ML/MIN/1.73 = 07738) eGFR NON- AMER. (test 79 ML/MIN/1.73 code = 15265) CALC BUN/CREAT (test code = 30 RATIO [...] (test code = 2219) 18 U/L LIPID [id number] 00:00:00 Test Item Value Reference Range Interpretation Comments CHOLESTEROL (test code = 2210) 412 MG/DL TRIGLYCERIDES (test code = 2232) 2520 MG/DL HDL CHOLESTEROL (test code = 16 MG/DL 2220) CALC LDL CHOL (test code = 2237) NOTE MG/DL RISK RATIO LDL/HDL (test code = (NOTE) RATIO 2238) LIPID [id number] 00:00:00 Test Item Value Reference Range Interpretation Comments CHOLESTEROL (test code = 2210) 412 MG/DL TRIGLYCERIDES (test code = 2232) 2520 MG/DL HDL CHOLESTEROL (test code = 16 MG/DL 2220) CALC LDL CHOL (test code = 2237) NOTE MG/DL RISK RATIO LDL/HDL (test code = (NOTE) RATIO 2238) HEMOGLOBIN [id number] 00:00:00 Test Item Value Reference Range Interpretation Comments HEMOGLOBIN A1c (test code = 16266) 10.7 % HEMOGLOBIN [id number] 00:00:00 Test Item Value Reference Range Interpretation Comments HEMOGLOBIN A1c (test code = 12900) 10.7 % HEMOGLOBIN [id number] 00:00:00 Test Item Value Reference Range Interpretation Comments HEMOGLOBIN A1c (test code = 61455) 10.7 % [id number] 00:00:00 Test Item Value Reference Range Interpretation Comments TSH, THIRD GENERATION (test code 0.777 UIU/ML = 2821) [id number] 00:00:00 Test Item Value Reference Range Interpretation Comments TSH, THIRD GENERATION (test code 0.777 UIU/ML = 2821) [id number] 00:00:00 Test Item Value Reference Range Interpretation Comments TSH, THIRD GENERATION (test code 0.777 UIU/ML = 2821) MICROALBUMIN/CREATININE, RANDOM AND [id number] 00:00:00 Test Item Value Reference Range Interpretation Comments CREATININE, URINE, CONC. (test 127.3 MG/DL code = 2072) ALBUMIN, URINE, RANDOM (test code 65.2 MG/DL = 10721) CALC ALBUMIN/CREAT, RND (test 512 MG/G code = 63372) MICROALBUMIN/CREATININE, RANDOM AND [id number] 00:00:00 Test Item Value Reference Range Interpretation Comments CREATININE, URINE, CONC. (test 127.3 MG/DL code = 2072) ALBUMIN, URINE, RANDOM (test code 65.2 MG/DL = 69789) CALC ALBUMIN/CREAT, RND (test 512 MG/G code = 22875) COMPREHENSIVE METABOLIC [id number] 00:00:00 Test Item Value Reference Range Interpretation Comments GLUCOSE (test code = 2217) 353 MG/DL BUN (test code = 2208) 27 MG/DL CREATININE (test code = 2214) 0.90 MG/DL eGFR AMER. (test code 92 ML/MIN/1.73 = 68010) eGFR NON- AMER. (test 79 ML/MIN/1.73 code = 83868) CALC BUN/CREAT (test code = 30 RATIO [...] code = 2219) 18 U/L COMPREHENSIVE METABOLIC [id number] 00:00:00 Test Item Value Reference Range Interpretation Comments GLUCOSE (test code = 2217) 353 MG/DL BUN (test code = 2208) 27 MG/DL CREATININE (test code = 2214) 0.90 MG/DL eGFR AMER. (test code 92 ML/MIN/1.73 = 28036) eGFR NON- AMER. (test 79 ML/MIN/1.73 code = 23196) CALC BUN/CREAT (test code = 30 RATIO [...] (test code = 2219) 18 U/L LIPID [id number] 00:00:00 Test Item Value Reference Range Interpretation Comments CHOLESTEROL (test code = 2210) 412 MG/DL TRIGLYCERIDES (test code = 2232) 2520 MG/DL HDL CHOLESTEROL (test code = 16 MG/DL 2220) CALC LDL CHOL (test code = 2237) NOTE MG/DL RISK RATIO LDL/HDL (test code = (NOTE) RATIO 2238) LIPID [id number] 00:00:00 Test Item Value Reference Range Interpretation Comments CHOLESTEROL (test code = 2210) 412 MG/DL TRIGLYCERIDES (test code = 2232) 2520 MG/DL HDL CHOLESTEROL (test code = 16 MG/DL 2220) CALC LDL CHOL (test code = 2237) NOTE MG/DL RISK RATIO LDL/HDL (test code = (NOTE) RATIO 2238) HEMOGLOBIN [id number] 00:00:00 Test Item Value Reference Range Interpretation Comments HEMOGLOBIN A1c (test code = 22318) 10.7 % HEMOGLOBIN [id number] 00:00:00 Test Item Value Reference Range Interpretation Comments HEMOGLOBIN A1c (test code = 25270) 10.7 % COMPREHENSIVE METABOLIC [id number] 00:00:00 Test Item Value Reference Range Interpretation Comments GLUCOSE (test code = 2217) 353 MG/DL BUN (test code = 2208) 27 MG/DL CREATININE (test code = 2214) 0.90 MG/DL eGFR AMER. (test code 92 ML/MIN/1.73 = 38298) eGFR NON- AMER. (test 79 ML/MIN/1.73 code = 88610) CALC BUN/CREAT (test code = 30 RATIO [...] (test code = 2219) 18 U/L HEMOGLOBIN [id number] 00:00:00 Test Item Value Reference Range Interpretation Comments HEMOGLOBIN A1c (test code = 87871) 10.7 % [id number] 00:00:00 Test Item Value Reference Range Interpretation Comments TSH, THIRD GENERATION (test code 0.777 UIU/ML = 2821) [id number] 00:00:00 Test Item Value Reference Range Interpretation Comments TSH, THIRD GENERATION (test code 0.777 UIU/ML = 2821) [id number] 00:00:00 Test Item Value Reference Range Interpretation Comments TSH, THIRD GENERATION (test code 0.777 UIU/ML = 2821) MICROALBUMIN/CREATININE, RANDOM AND [id number] 00:00:00 Test Item Value Reference Range Interpretation Comments CREATININE, URINE, CONC. (test 127.3 MG/DL code = 2072) ALBUMIN, URINE, RANDOM (test code 65.2 MG/DL = 71500) CALC ALBUMIN/CREAT, RND (test 512 MG/G code = 35854) MICROALBUMIN/CREATININE, RANDOM AND [id number] 00:00:00 Test Item Value Reference Range Interpretation Comments CREATININE, URINE, CONC. (test 127.3 MG/DL code = 2072) ALBUMIN, URINE, RANDOM (test code 65.2 MG/DL = 70802) CALC ALBUMIN/CREAT, RND (test 512 MG/G code = 54978) LIPID [id number] 00:00:00 Test Item Value Reference Range Interpretation Comments CHOLESTEROL (test code = 2210) 412 MG/DL TRIGLYCERIDES (test code = 2232) 2520 MG/DL HDL CHOLESTEROL (test code = 16 MG/DL 2220) CALC LDL CHOL (test code = 2237) NOTE MG/DL RISK RATIO LDL/HDL (test code = (NOTE) RATIO 2238) HEMOGLOBIN [id number] 00:00:00 Test Item Value Reference Range Interpretation Comments HEMOGLOBIN A1c (test code = 72304) 10.7 % HEMOGLOBIN [id number] 00:00:00 Test Item Value Reference Range Interpretation Comments HEMOGLOBIN A1c (test code = 41018) 10.7 % COMPREHENSIVE METABOLIC [id number] 00:00:00 Test Item Value Reference Range Interpretation Comments GLUCOSE (test code = 2217) 353 MG/DL BUN (test code = 2208) 27 MG/DL CREATININE (test code = 2214) 0.90 MG/DL eGFR AMER. (test code 92 ML/MIN/1.73 = 81929) eGFR NON- AMER. (test 79 ML/MIN/1.73 code = 45616) CALC BUN/CREAT (test code = 30 RATIO [...] code = 2219) 18 U/L COMPREHENSIVE METABOLIC [id number] 00:00:00 Test Item Value Reference Range Interpretation Comments GLUCOSE (test code = 2217) 353 MG/DL BUN (test code = 2208) 27 MG/DL CREATININE (test code = 2214) 0.90 MG/DL eGFR AMER. (test code 92 ML/MIN/1.73 = 27268) eGFR NON- AMER. (test 79 ML/MIN/1.73 code = 38442) CALC BUN/CREAT (test code = 30 RATIO [...] ALT (test code = 2219) 18 U/L [id number] 00:00:00 Test Item Value Reference Range Interpretation Comments TSH, THIRD GENERATION (test code 0.777 UIU/ML = 2821) LIPID [id number] 00:00:00 Test Item Value Reference Range Interpretation Comments CHOLESTEROL (test code = 2210) 412 MG/DL TRIGLYCERIDES (test code = 2232) 2520 MG/DL HDL CHOLESTEROL (test code = 16 MG/DL 2220) CALC LDL CHOL (test code = 2237) NOTE MG/DL RISK RATIO LDL/HDL (test code = (NOTE) RATIO 2238) [id number] 00:00:00 Test Item Value Reference Range Interpretation Comments TSH, THIRD GENERATION (test code 0.777 UIU/ML = 2821) LIPID [id number] 00:00:00 Test Item Value Reference Range Interpretation Comments CHOLESTEROL (test code = 2210) 412 MG/DL TRIGLYCERIDES (test code = 2232) 2520 MG/DL HDL CHOLESTEROL (test code = 16 MG/DL 2220) CALC LDL CHOL (test code = 2237) NOTE MG/DL RISK RATIO LDL/HDL (test code = (NOTE) RATIO 2238) HEMOGLOBIN [id number] 00:00:00 Test Item Value Reference Range Interpretation Comments HEMOGLOBIN A1c (test code = 49840) 10.7 % HEMOGLOBIN [id number] 00:00:00 Test Item Value Reference Range Interpretation Comments HEMOGLOBIN A1c (test code = 82056) 10.7 % HEMOGLOBIN [id number] 00:00:00 Test Item Value Reference Range Interpretation Comments HEMOGLOBIN A1c (test code = 97196) 10.7 % [id number] 00:00:00 Test Item Value Reference Range Interpretation Comments TSH, THIRD GENERATION (test code 0.777 UIU/ML = 2821) [id number] 00:00:00 Test Item Value Reference Range Interpretation Comments TSH, THIRD GENERATION (test code 0.777 UIU/ML = 2821) MICROALBUMIN/CREATININE, RANDOM AND [id number] 00:00:00 Test Item Value Reference Range Interpretation Comments CREATININE, URINE, CONC. (test 127.3 MG/DL code = 2072) ALBUMIN, URINE, RANDOM (test code 65.2 MG/DL = 70926) CALC ALBUMIN/CREAT, RND (test 512 MG/G code = 17205) [id number] 00:00:00 Test Item Value Reference Range Interpretation Comments TSH, THIRD GENERATION (test code 0.777 UIU/ML = 2821) MICROALBUMIN/CREATININE, RANDOM AND [id number] 00:00:00 Test Item Value Reference Range Interpretation Comments CREATININE, URINE, CONC. (test 127.3 MG/DL code = 2072) ALBUMIN, URINE, RANDOM (test code 65.2 MG/DL = 29138) CALC ALBUMIN/CREAT, RND (test 512 MG/G code = 02431) MICROALBUMIN/CREATININE, RANDOM AND [id number] 00:00:00 Test Item Value Reference Range Interpretation Comments CREATININE, URINE, CONC. (test 127.3 MG/DL code = 2072) ALBUMIN, URINE, RANDOM (test code 65.2 MG/DL = 26880) CALC ALBUMIN/CREAT, RND (test 512 MG/G code = 20629) COMPREHENSIVE METABOLIC [id number] 00:00:00 Test Item Value Reference Range Interpretation Comments GLUCOSE (test code = 2217) 353 MG/DL BUN (test code = 2208) 27 MG/DL CREATININE (test code = 2214) 0.90 MG/DL eGFR AMER. (test code 92 ML/MIN/1.73 = 55475) eGFR NON- AMER. (test 79 ML/MIN/1.73 code = 77891) CALC BUN/CREAT (test code = 30 RATIO [...] code = 2219) 18 U/L COMPREHENSIVE METABOLIC [id number] 00:00:00 Test Item Value Reference Range Interpretation Comments GLUCOSE (test code = 2217) 353 MG/DL BUN (test code = 2208) 27 MG/DL CREATININE (test code = 2214) 0.90 MG/DL eGFR AMER. (test code 92 ML/MIN/1.73 = 95082) eGFR NON- AMER. (test 79 ML/MIN/1.73 code = 75999) CALC BUN/CREAT (test code = 30 RATIO [...] (test code = 2219) 18 U/L LIPID [id number] 00:00:00 Test Item Value Reference Range Interpretation Comments CHOLESTEROL (test code = 2210) 412 MG/DL TRIGLYCERIDES (test code = 2232) 2520 MG/DL HDL CHOLESTEROL (test code = 16 MG/DL 2220) CALC LDL CHOL (test code = 2237) NOTE MG/DL RISK RATIO LDL/HDL (test code = (NOTE) RATIO 2238) LIPID [id number] 00:00:00 Test Item Value Reference Range Interpretation Comments CHOLESTEROL (test code = 2210) 412 MG/DL TRIGLYCERIDES (test code = 2232) 2520 MG/DL HDL CHOLESTEROL (test code = 16 MG/DL 2220) CALC LDL CHOL (test code = 2237) NOTE MG/DL RISK RATIO LDL/HDL (test code = (NOTE) RATIO 2238) HEMOGLOBIN [id number] 00:00:00 Test Item Value Reference Range Interpretation Comments HEMOGLOBIN A1c (test code = 92091) 10.7 % HEMOGLOBIN [id number] 00:00:00 Test Item Value Reference Range Interpretation Comments HEMOGLOBIN A1c (test code = 51417) 10.7 % HEMOGLOBIN [id number] 00:00:00 Test Item Value Reference Range Interpretation Comments HEMOGLOBIN A1c (test code = 68022) 10.7 % [id number] 00:00:00 Test Item Value Reference Range Interpretation Comments TSH, THIRD GENERATION (test code 0.777 UIU/ML = 2821) [id number] 00:00:00 Test Item Value Reference Range Interpretation Comments TSH, THIRD GENERATION (test code 0.777 UIU/ML = 2821) [id number] 00:00:00 Test Item Value Reference Range Interpretation Comments TSH, THIRD GENERATION (test code 0.777 UIU/ML = 2821) MICROALBUMIN/CREATININE, RANDOM AND [id number] 00:00:00 Test Item Value Reference Range Interpretation Comments CREATININE, URINE, CONC. (test 127.3 MG/DL code = 2072) ALBUMIN, URINE, RANDOM (test code 65.2 MG/DL = 43639) CALC ALBUMIN/CREAT, RND (test 512 MG/G code = 56693) MICROALBUMIN/CREATININE, RANDOM AND [id number] 00:00:00 Test Item Value Reference Range Interpretation Comments CREATININE, URINE, CONC. (test 127.3 MG/DL code = 2072) ALBUMIN, URINE, RANDOM (test code 65.2 MG/DL = 76586) CALC ALBUMIN/CREAT, RND (test 512 MG/G code = 01634) COMPREHENSIVE METABOLIC [id number] 00:00:00 Test Item Value Reference Range Interpretation Comments GLUCOSE (test code = 2217) 353 MG/DL BUN (test code = 2208) 27 MG/DL CREATININE (test code = 2214) 0.90 MG/DL eGFR AMER. (test code 92 ML/MIN/1.73 = 58235) eGFR NON- AMER. (test 79 ML/MIN/1.73 code = 42213) CALC BUN/CREAT (test code = 30 RATIO [...] code = 2219) 18 U/L COMPREHENSIVE METABOLIC [id number] 00:00:00 Test Item Value Reference Range Interpretation Comments GLUCOSE (test code = 2217) 353 MG/DL BUN (test code = 2208) 27 MG/DL CREATININE (test code = 2214) 0.90 MG/DL eGFR AMER. (test code 92 ML/MIN/1.73 = 73669) eGFR NON- AMER. (test 79 ML/MIN/1.73 code = 95182) CALC BUN/CREAT (test code = 30 RATIO [...] (test code = 2219) 18 U/L LIPID [id number] 00:00:00 Test Item Value Reference Range Interpretation Comments CHOLESTEROL (test code = 2210) 412 MG/DL TRIGLYCERIDES (test code = 2232) 2520 MG/DL HDL CHOLESTEROL (test code = 16 MG/DL 2220) CALC LDL CHOL (test code = 2237) NOTE MG/DL RISK RATIO LDL/HDL (test code = (NOTE) RATIO 2238) LIPID [id number] 00:00:00 Test Item Value Reference Range Interpretation Comments CHOLESTEROL (test code = 2210) 412 MG/DL TRIGLYCERIDES (test code = 2232) 2520 MG/DL HDL CHOLESTEROL (test code = 16 MG/DL 2220) CALC LDL CHOL (test code = 2237) NOTE MG/DL RISK RATIO LDL/HDL (test code = (NOTE) RATIO 2238) HEMOGLOBIN [id number] 00:00:00 Test Item Value Reference Range Interpretation Comments HEMOGLOBIN A1c (test code = 95204) 10.7 % HEMOGLOBIN [id number] 00:00:00 Test Item Value Reference Range Interpretation Comments HEMOGLOBIN A1c (test code = 37591) 10.7 % HEMOGLOBIN [id number] 00:00:00 Test Item Value Reference Range Interpretation Comments HEMOGLOBIN A1c (test code = 22915) 10.7 % [id number] 00:00:00 Test Item Value Reference Range Interpretation Comments TSH, THIRD GENERATION (test code 0.777 UIU/ML = 2821) [id number] 00:00:00 Test Item Value Reference Range Interpretation Comments TSH, THIRD GENERATION (test code 0.777 UIU/ML = 2821) [id number] 00:00:00 Test Item Value Reference Range Interpretation Comments TSH, THIRD GENERATION (test code 0.777 UIU/ML = 2821) MICROALBUMIN/CREATININE, RANDOM AND [id number] 00:00:00 Test Item Value Reference Range Interpretation Comments CREATININE, URINE, CONC. (test 127.3 MG/DL code = 2072) ALBUMIN, URINE, RANDOM (test code 65.2 MG/DL = 14441) CALC ALBUMIN/CREAT, RND (test 512 MG/G code = 39174) MICROALBUMIN/CREATININE, RANDOM AND [id number] 00:00:00 Test Item Value Reference Range Interpretation Comments CREATININE, URINE, CONC. (test 127.3 MG/DL code = 2072) ALBUMIN, URINE, RANDOM (test code 65.2 MG/DL = 51294) CALC ALBUMIN/CREAT, RND (test 512 MG/G code = 63896) CULTURE, [id number] 00:00:00 Test Item Value Reference Range Interpretation Comments CULTURE, URINE (test SPECIMEN NUMBER: code = 60497) [id number] CULTURE, [id number] 00:00:00 Test Item Value Reference Range Interpretation Comments CULTURE, URINE (test SPECIMEN NUMBER: code = 39908) [id number] CULTURE, [id number] 00:00:00 Test Item Value Reference Range Interpretation Comments CULTURE, URINE (test SPECIMEN NUMBER: code = 88066) [id number] CULTURE, [id number] 00:00:00 Test Item Value Reference Range Interpretation Comments CULTURE, URINE (test SPECIMEN NUMBER: code = 59598) [id number] CULTURE, [id number] 00:00:00 Test Item Value Reference Range Interpretation Comments CULTURE, URINE (test SPECIMEN NUMBER: code = 54081) [id number] CULTURE, [id number] 00:00:00 Test Item Value Reference Range Interpretation Comments CULTURE, URINE (test SPECIMEN NUMBER: code = 56344) [id number] CULTURE, [id number] 00:00:00 Test Item Value Reference Range Interpretation Comments CULTURE, URINE (test SPECIMEN NUMBER: code = 18019) [id number] CULTURE, [id number] 00:00:00 Test Item Value Reference Range Interpretation Comments CULTURE, URINE (test SPECIMEN NUMBER: code = 04413) [id number] CULTURE, [id number] 00:00:00 Test Item Value Reference Range Interpretation Comments CULTURE, URINE (test SPECIMEN NUMBER: code = 64507) [id number] CULTURE, [id number] 00:00:00 Test Item Value Reference Range Interpretation Comments CULTURE, URINE (test SPECIMEN NUMBER: code = 76186) [id number] CULTURE, [id number] 00:00:00 Test Item Value Reference Range Interpretation Comments CULTURE, URINE (test SPECIMEN NUMBER: code = 38682) [id number] CULTURE, [id number] 00:00:00 Test Item Value Reference Range Interpretation Comments CULTURE, URINE (test SPECIMEN NUMBER: code = 84759) [id number] CULTURE, [id number] 00:00:00 Test Item Value Reference Range Interpretation Comments CULTURE, URINE (test SPECIMEN NUMBER: code = 68539) [id number] CULTURE, [id number] 00:00:00 Test Item Value Reference Range Interpretation Comments CULTURE, URINE (test SPECIMEN NUMBER: code = 75024) [id number] CULTURE, [id number] 00:00:00 Test Item Value Reference Range Interpretation Comments CULTURE, URINE (test SPECIMEN NUMBER: code = 46644) [id number] CULTURE, [id number] 00:00:00 Test Item Value Reference Range Interpretation Comments CULTURE, URINE (test SPECIMEN NUMBER: code = 92510) [id number] CULTURE, [id number] 00:00:00 Test Item Value Reference Range Interpretation Comments CULTURE, URINE (test SPECIMEN NUMBER: code = 89295) [id number] CULTURE, [id number] 00:00:00 Test Item Value Reference Range Interpretation Comments CULTURE, URINE (test SPECIMEN NUMBER: code = 97462) [id number] CULTURE, [id number] 00:00:00 Test Item Value Reference Range Interpretation Comments CULTURE, URINE (test SPECIMEN NUMBER: code = 38155) [id number] CULTURE, [id number] 00:00:00 Test Item Value Reference Range Interpretation Comments CULTURE, URINE (test SPECIMEN NUMBER: code = 57458) [id number] CULTURE, [id number] 00:00:00 Test Item Value Reference Range Interpretation Comments CULTURE, URINE (test SPECIMEN NUMBER: code = 46197) [id number] VAGINAL PATHOGENS DNA [id number] 00:00:00 Test Item Value Reference Range Interpretation Comments ANDIE SPECIES (test code = ) NEGATIVE G. VAGINALIS (test code = 09059) NEGATIVE T. VAGINALIS (test code = 88434) NEGATIVE VAGINAL PATHOGENS DNA [id number] 00:00:00 Test Item Value Reference Range Interpretation Comments ANDIE SPECIES (test code = 45360) NEGATIVE G. VAGINALIS (test code = 07264) NEGATIVE T. VAGINALIS (test code = 16617) NEGATIVE VAGINAL PATHOGENS DNA [id number] 00:00:00 Test Item Value Reference Range Interpretation Comments ANDIE SPECIES (test code = 69278) NEGATIVE G. VAGINALIS (test code = 29022) NEGATIVE T. VAGINALIS (test code = 57900) NEGATIVE VAGINAL PATHOGENS DNA [id number] 00:00:00 Test Item Value Reference Range Interpretation Comments ANDIE SPECIES (test code = 25459) NEGATIVE G. VAGINALIS (test code = 69160) NEGATIVE T. VAGINALIS (test code = 06056) NEGATIVE VAGINAL PATHOGENS DNA [id number] 00:00:00 Test Item Value Reference Range Interpretation Comments ANDIE SPECIES (test code = ) NEGATIVE G. VAGINALIS (test code = 93140) NEGATIVE T. VAGINALIS (test code = 71432) NEGATIVE VAGINAL PATHOGENS DNA [id number] 00:00:00 Test Item Value Reference Range Interpretation Comments ANDIE SPECIES (test code = 50712) NEGATIVE G. VAGINALIS (test code = 93740) NEGATIVE T. VAGINALIS (test code = 61150) NEGATIVE VAGINAL PATHOGENS DNA [id number] 00:00:00 Test Item Value Reference Range Interpretation Comments ANDIE SPECIES (test code = 33354) NEGATIVE G. VAGINALIS (test code = 03603) NEGATIVE T. VAGINALIS (test code = 69160) NEGATIVE VAGINAL PATHOGENS DNA [id number] 00:00:00 Test Item Value Reference Range Interpretation Comments ANDIE SPECIES (test code = 78061) NEGATIVE G. VAGINALIS (test code = 14784) NEGATIVE T. VAGINALIS (test code = 29954) NEGATIVE VAGINAL PATHOGENS DNA [id number] 00:00:00 Test Item Value Reference Range Interpretation Comments ANDIE SPECIES (test code = 57002) NEGATIVE G. VAGINALIS (test code = 76756) NEGATIVE T. VAGINALIS (test code = 91897) NEGATIVE VAGINAL PATHOGENS DNA [id number] 00:00:00 Test Item Value Reference Range Interpretation Comments ANDIE SPECIES (test code = ) NEGATIVE G. VAGINALIS (test code = 38184) NEGATIVE T. VAGINALIS (test code = 72064) NEGATIVE VAGINAL PATHOGENS DNA [id number] 00:00:00 Test Item Value Reference Range Interpretation Comments ANDIE SPECIES (test code = 72654) NEGATIVE G. VAGINALIS (test code = 75920) NEGATIVE T. VAGINALIS (test code = 40278) NEGATIVE VAGINAL PATHOGENS DNA [id number] 00:00:00 Test Item Value Reference Range Interpretation Comments ANDIE SPECIES (test code = 97330) NEGATIVE G. VAGINALIS (test code = 28993) NEGATIVE T. VAGINALIS (test code = 85885) NEGATIVE VAGINAL PATHOGENS DNA [id number] 00:00:00 Test Item Value Reference Range Interpretation Comments ANDIE SPECIES (test code = 54773) NEGATIVE G. VAGINALIS (test code = 96413) NEGATIVE T. VAGINALIS (test code = 33104) NEGATIVE VAGINAL PATHOGENS DNA [id number] 00:00:00 Test Item Value Reference Range Interpretation Comments ANDIE SPECIES (test code = 16259) NEGATIVE G. VAGINALIS (test code = 35628) NEGATIVE T. VAGINALIS (test code = 27874) NEGATIVE VAGINAL PATHOGENS DNA [id number] 00:00:00 Test Item Value Reference Range Interpretation Comments ANDIE SPECIES (test code = 94887) NEGATIVE G. VAGINALIS (test code = 27748) NEGATIVE T. VAGINALIS (test code = 64343) NEGATIVE VAGINAL PATHOGENS DNA [id number] 00:00:00 Test Item Value Reference Range Interpretation Comments ANDIE SPECIES (test code = 16827) NEGATIVE G. VAGINALIS (test code = 26845) NEGATIVE T. VAGINALIS (test code = 62857) NEGATIVE VAGINAL PATHOGENS DNA [id number] 00:00:00 Test Item Value Reference Range Interpretation Comments ANDIE SPECIES (test code = 55412) NEGATIVE G. VAGINALIS (test code = 48585) NEGATIVE T. VAGINALIS (test code = 69771) NEGATIVE VAGINAL PATHOGENS DNA [id number] 00:00:00 Test Item Value Reference Range Interpretation Comments ANDIE SPECIES (test code = 23597) NEGATIVE G. VAGINALIS (test code = 75850) NEGATIVE T. VAGINALIS (test code = 58323) NEGATIVE VAGINAL PATHOGENS DNA [id number] 00:00:00 Test Item Value Reference Range Interpretation Comments ANDIE SPECIES (test code = ) NEGATIVE G. VAGINALIS (test code = 83782) NEGATIVE T. VAGINALIS (test code = 66464) NEGATIVE VAGINAL PATHOGENS DNA [id number] 00:00:00 Test Item Value Reference Range Interpretation Comments ANDIE SPECIES (test code = ) NEGATIVE G. VAGINALIS (test code = 18841) NEGATIVE T. VAGINALIS (test code = 55371) NEGATIVE VAGINAL PATHOGENS DNA [id number] 00:00:00 Test Item Value Reference Range Interpretation Comments ANDIE SPECIES (test code = ) NEGATIVE G. VAGINALIS (test code = 31015) NEGATIVE T. VAGINALIS (test code = 41813) NEGATIVE COMPREHENSIVE METABOLIC PANEL [ADDED]2018-05-24 00:00:00 Test Item Value Reference Range Interpretation Comments GLUCOSE (test code = 2217) 198 MG/DL BUN (test code = 2208) 18 MG/DL CREATININE (test code = 2214) 0.86 MG/DL eGFR AMER. (test code 98 ML/MIN/1.73 = 91238) eGFR NON- AMER. (test 84 ML/MIN/1.73 code = 63238) CALC BUN/CREAT (test code = 21 RATIO [...] eGFR AMER. (test code 98 ML/MIN/1.73 = 46583) eGFR NON- AMER. (test 84 ML/MIN/1.73 code = 18533) CALC BUN/CREAT (test code = 21 RATIO [...] Interpretation Comments HEMOGLOBIN A1c (test code = 24482) 10.1 % HEMOGLOBIN A1c [ADDED]2018-05-24 00:00:00 Test Item Value Reference Range Interpretation Comments HEMOGLOBIN A1c (test code = 36483) 10.1 % HEMOGLOBIN A1c [ADDED]2018-05-24 00:00:00 Test Item Value Reference Range Interpretation Comments HEMOGLOBIN A1c (test code = 95496) 10.1 % COMPREHENSIVE METABOLIC PANEL [ADDED]2018-05-24 00:00:00 Test Item Value Reference Range Interpretation Comments GLUCOSE (test code = 2217) 198 MG/DL BUN (test code = 2208) 18 MG/DL CREATININE (test code = 2214) 0.86 MG/DL eGFR AMER. (test code 98 ML/MIN/1.73 = 77280) eGFR NON- AMER. (test 84 ML/MIN/1.73 code = 35551) CALC BUN/CREAT (test code = 21 RATIO [...] eGFR AMER. (test code 98 ML/MIN/1.73 = 32875) eGFR NON- AMER. (test 84 ML/MIN/1.73 code = 73247) CALC BUN/CREAT (test code = 21 RATIO [...] Interpretation Comments HEMOGLOBIN A1c (test code = 43536) 10.1 % HEMOGLOBIN A1c [ADDED]2018-05-24 00:00:00 Test Item Value Reference Range Interpretation Comments HEMOGLOBIN A1c (test code = 07875) 10.1 % HEMOGLOBIN A1c [ADDED]2018-05-24 00:00:00 Test Item Value Reference Range Interpretation Comments HEMOGLOBIN A1c (test code = 15689) 10.1 % COMPREHENSIVE METABOLIC PANEL [ADDED]2018-05-24 00:00:00 Test Item Value Reference Range Interpretation Comments GLUCOSE (test code = 2217) 198 MG/DL BUN (test code = 2208) 18 MG/DL CREATININE (test code = 2214) 0.86 MG/DL eGFR AMER. (test code 98 ML/MIN/1.73 = 31666) eGFR NON- AMER. (test 84 ML/MIN/1.73 code = 55909) CALC BUN/CREAT (test code = 21 RATIO [...] eGFR AMER. (test code 98 ML/MIN/1.73 = 18173) eGFR NON- AMER. (test 84 ML/MIN/1.73 code = 94288) CALC BUN/CREAT (test code = 21 RATIO [...] Interpretation Comments HEMOGLOBIN A1c (test code = 06668) 10.1 % HEMOGLOBIN A1c [ADDED]2018-05-24 00:00:00 Test Item Value Reference Range Interpretation Comments HEMOGLOBIN A1c (test code = 06084) 10.1 % HEMOGLOBIN A1c [ADDED]2018-05-24 00:00:00 Test Item Value Reference Range Interpretation Comments HEMOGLOBIN A1c (test code = 53209) 10.1 % COMPREHENSIVE METABOLIC PANEL [ADDED]2018-05-24 00:00:00 Test Item Value Reference Range Interpretation Comments GLUCOSE (test code = 2217) 198 MG/DL BUN (test code = 2208) 18 MG/DL CREATININE (test code = 2214) 0.86 MG/DL eGFR AMER. (test code 98 ML/MIN/1.73 = 05142) eGFR NON- AMER. (test 84 ML/MIN/1.73 code = 48216) CALC BUN/CREAT (test code = 21 RATIO [...] eGFR AMER. (test code 98 ML/MIN/1.73 = 83884) eGFR NON- AMER. (test 84 ML/MIN/1.73 code = 55229) CALC BUN/CREAT (test code = 21 RATIO [...] Interpretation Comments HEMOGLOBIN A1c (test code = 17218) 10.1 % HEMOGLOBIN A1c [ADDED]2018-05-24 00:00:00 Test Item Value Reference Range Interpretation Comments HEMOGLOBIN A1c (test code = 94239) 10.1 % HEMOGLOBIN A1c [ADDED]2018-05-24 00:00:00 Test Item Value Reference Range Interpretation Comments HEMOGLOBIN A1c (test code = 43816) 10.1 % COMPREHENSIVE METABOLIC PANEL [ADDED]2018-05-24 00:00:00 Test Item Value Reference Range Interpretation Comments GLUCOSE (test code = 2217) 198 MG/DL BUN (test code = 2208) 18 MG/DL CREATININE (test code = 2214) 0.86 MG/DL eGFR AMER. (test code 98 ML/MIN/1.73 = 00624) eGFR NON- AMER. (test 84 ML/MIN/1.73 code = 28403) CALC BUN/CREAT (test code = 21 RATIO [...] eGFR AMER. (test code 98 ML/MIN/1.73 = 74039) eGFR NON- AMER. (test 84 ML/MIN/1.73 code = 02317) CALC BUN/CREAT (test code = 21 RATIO [...] Interpretation Comments HEMOGLOBIN A1c (test code = 41651) 10.1 % HEMOGLOBIN A1c [ADDED]2018-05-24 00:00:00 Test Item Value Reference Range Interpretation Comments HEMOGLOBIN A1c (test code = 90943) 10.1 % HEMOGLOBIN A1c [ADDED]2018-05-24 00:00:00 Test Item Value Reference Range Interpretation Comments HEMOGLOBIN A1c (test code = 26697) 10.1 % COMPREHENSIVE METABOLIC PANEL [ADDED]2018-05-24 00:00:00 Test Item Value Reference Range Interpretation Comments GLUCOSE (test code = 2217) 198 MG/DL BUN (test code = 2208) 18 MG/DL CREATININE (test code = 2214) 0.86 MG/DL eGFR AMER. (test code 98 ML/MIN/1.73 = 69646) eGFR NON- AMER. (test 84 ML/MIN/1.73 code = 25945) CALC BUN/CREAT (test code = 21 RATIO [...] eGFR AMER. (test code 98 ML/MIN/1.73 = 18900) eGFR NON- AMER. (test 84 ML/MIN/1.73 code = 92164) CALC BUN/CREAT (test code = 21 RATIO [...] Interpretation Comments HEMOGLOBIN A1c (test code = 68216) 10.1 % HEMOGLOBIN A1c [ADDED]2018-05-24 00:00:00 Test Item Value Reference Range Interpretation Comments HEMOGLOBIN A1c (test code = 40496) 10.1 % HEMOGLOBIN A1c [ADDED]2018-05-24 00:00:00 Test Item Value Reference Range Interpretation Comments HEMOGLOBIN A1c (test code = 65900) 10.1 % COMPREHENSIVE METABOLIC PANEL [ADDED]2018-05-24 00:00:00 Test Item Value Reference Range Interpretation Comments GLUCOSE (test code = 2217) 198 MG/DL BUN (test code = 2208) 18 MG/DL CREATININE (test code = 2214) 0.86 MG/DL eGFR AMER. (test code 98 ML/MIN/1.73 = 68591) eGFR NON- AMER. (test 84 ML/MIN/1.73 code = 92658) CALC BUN/CREAT (test code = 21 RATIO [...] eGFR AMER. (test code 98 ML/MIN/1.73 = 81010) eGFR NON- AMER. (test 84 ML/MIN/1.73 code = 27781) CALC BUN/CREAT (test code = 21 RATIO [...] Interpretation Comments HEMOGLOBIN A1c (test code = 48779) 10.1 % HEMOGLOBIN A1c [ADDED]2018-05-24 00:00:00 Test Item Value Reference Range Interpretation Comments HEMOGLOBIN A1c (test code = 82772) 10.1 % HEMOGLOBIN A1c [ADDED]2018-05-24 00:00:00 Test Item Value Reference Range Interpretation Comments HEMOGLOBIN A1c (test code = 86808) 10.1 % COMPREHENSIVE METABOLIC PANEL [ADDED]2018-05-24 00:00:00 Test Item Value Reference Range Interpretation Comments GLUCOSE (test code = 2217) 198 MG/DL BUN (test code = 2208) 18 MG/DL CREATININE (test code = 2214) 0.86 MG/DL eGFR AMER. (test code 98 ML/MIN/1.73 = 88330) eGFR NON- AMER. (test 84 ML/MIN/1.73 code = 98743) CALC BUN/CREAT (test code = 21 RATIO [...] Interpretation Comments HEMOGLOBIN A1c (test code = 66707) 10.1 % HEMOGLOBIN A1c [ADDED]2018-05-24 00:00:00 Test Item Value Reference Range Interpretation Comments HEMOGLOBIN A1c (test code = 00058) 10.1 % COMPREHENSIVE METABOLIC PANEL [ADDED]2018-05-24 00:00:00 Test Item Value Reference Range Interpretation Comments GLUCOSE (test code = 2217) 198 MG/DL BUN (test code = 2208) 18 MG/DL CREATININE (test code = 2214) 0.86 MG/DL eGFR AMER. (test code 98 ML/MIN/1.73 = 08990) eGFR NON- AMER. (test 84 ML/MIN/1.73 code = 01584) CALC BUN/CREAT (test code = 21 RATIO [...] eGFR AMER. (test code 98 ML/MIN/1.73 = 70905) eGFR NON- AMER. (test 84 ML/MIN/1.73 code = 43489) CALC BUN/CREAT (test code = 21 RATIO [...] Interpretation Comments HEMOGLOBIN A1c (test code = 52658) 10.1 % HEMOGLOBIN A1c [ADDED]2018-05-24 00:00:00 Test Item Value Reference Range Interpretation Comments HEMOGLOBIN A1c (test code = 75779) 10.1 % HEMOGLOBIN A1c [ADDED]2018-05-24 00:00:00 Test Item Value Reference Range Interpretation Comments HEMOGLOBIN A1c (test code = 26418) 10.1 % COMPREHENSIVE METABOLIC PANEL [ADDED]2018-05-24 00:00:00 Test Item Value Reference Range Interpretation Comments GLUCOSE (test code = 2217) 198 MG/DL BUN (test code = 2208) 18 MG/DL CREATININE (test code = 2214) 0.86 MG/DL eGFR AMER. (test code 98 ML/MIN/1.73 = 17397) eGFR NON- AMER. (test 84 ML/MIN/1.73 code = 70912) CALC BUN/CREAT (test code = 21 RATIO [...] eGFR AMER. (test code 98 ML/MIN/1.73 = 45730) eGFR NON- AMER. (test 84 ML/MIN/1.73 code = 07003) CALC BUN/CREAT (test code = 21 RATIO [...] Interpretation Comments HEMOGLOBIN A1c (test code = 70055) 10.1 % HEMOGLOBIN A1c [ADDED]2018-05-24 00:00:00 Test Item Value Reference Range Interpretation Comments HEMOGLOBIN A1c (test code = 96026) 10.1 % HEMOGLOBIN A1c [ADDED]2018-05-24 00:00:00 Test Item Value Reference Range Interpretation Comments HEMOGLOBIN A1c (test code = 51741) 10.1 % COMPREHENSIVE METABOLIC PANEL [ADDED]2018-05-24 00:00:00 Test Item Value Reference Range Interpretation Comments GLUCOSE (test code = 2217) 198 MG/DL BUN (test code = 2208) 18 MG/DL CREATININE (test code = 2214) 0.86 MG/DL eGFR AMER. (test code 98 ML/MIN/1.73 = 00037) eGFR NON- AMER. (test 84 ML/MIN/1.73 code = 71696) CALC BUN/CREAT (test code = 21 RATIO [...] eGFR AMER. (test code 98 ML/MIN/1.73 = 38756) eGFR NON- AMER. (test 84 ML/MIN/1.73 code = 63451) CALC BUN/CREAT (test code = 21 RATIO [...] Interpretation Comments HEMOGLOBIN A1c (test code = 15727) 10.1 % HEMOGLOBIN A1c [ADDED]2018-05-24 00:00:00 Test Item Value Reference Range Interpretation Comments HEMOGLOBIN A1c (test code = 97338) 10.1 % HEMOGLOBIN A1c [ADDED]2018-05-24 00:00:00 Test Item Value Reference Range Interpretation Comments HEMOGLOBIN A1c (test code = 02767) 10.1 % HEMOGLOBIN [id number] 00:00:00 Test Item Value Reference Range Interpretation Comments HEMOGLOBIN A1c (test code = 91100) 8.5 % HEMOGLOBIN [id number] 00:00:00 Test Item Value Reference Range Interpretation Comments HEMOGLOBIN A1c (test code = 39535) 8.5 % HEMOGLOBIN [id number] 00:00:00 Test Item Value Reference Range Interpretation Comments HEMOGLOBIN A1c (test code = 31301) 8.5 % COMPREHENSIVE METABOLIC [id number] 00:00:00 Test Item Value Reference Range Interpretation Comments GLUCOSE (test code = 2217) 131 MG/DL BUN (test code = 2208) 16 MG/DL CREATININE (test code = 2214) 0.71 MG/DL eGFR AMER. (test code 124 ML/MIN/1.73 = 87246) eGFR NON- AMER. (test 107 ML/MIN/1.73 code = 22007) CALC BUN/CREAT (test code = 23 RATIO [...] code = 2219) 33 U/L COMPREHENSIVE METABOLIC [id number] 00:00:00 Test Item Value Reference Range Interpretation Comments GLUCOSE (test code = 2217) 131 MG/DL BUN (test code = 2208) 16 MG/DL CREATININE (test code = 2214) 0.71 MG/DL eGFR AMER. (test code 124 ML/MIN/1.73 = 30144) eGFR NON- AMER. (test 107 ML/MIN/1.73 code = 81135) CALC BUN/CREAT (test code = 23 RATIO [...] (test code = 2219) 33 U/L LIPID [id number] 00:00:00 Test Item Value Reference Range Interpretation Comments CHOLESTEROL (test code = 2210) 201 MG/DL TRIGLYCERIDES (test code = 2232) 1014 MG/DL HDL CHOLESTEROL (test code = 25 MG/DL 2220) CALC LDL CHOL (test code = 2237) NOTE MG/DL RISK RATIO LDL/HDL (test code = (NOTE) RATIO 2238) LIPID [id number] 00:00:00 Test Item Value Reference Range Interpretation Comments CHOLESTEROL (test code = 2210) 201 MG/DL TRIGLYCERIDES (test code = 2232) 1014 MG/DL HDL CHOLESTEROL (test code = 25 MG/DL 2220) CALC LDL CHOL (test code = 2237) NOTE MG/DL RISK RATIO LDL/HDL (test code = (NOTE) RATIO 2238) HEMOGLOBIN [id number] 00:00:00 Test Item Value Reference Range Interpretation Comments HEMOGLOBIN A1c (test code = 71707) 8.5 % HEMOGLOBIN [id number] 00:00:00 Test Item Value Reference Range Interpretation Comments HEMOGLOBIN A1c (test code = 61773) 8.5 % HEMOGLOBIN [id number] 00:00:00 Test Item Value Reference Range Interpretation Comments HEMOGLOBIN A1c (test code = 01539) 8.5 % COMPREHENSIVE METABOLIC [id number] 00:00:00 Test Item Value Reference Range Interpretation Comments GLUCOSE (test code = 2217) 131 MG/DL BUN (test code = 2208) 16 MG/DL CREATININE (test code = 2214) 0.71 MG/DL eGFR AMER. (test code 124 ML/MIN/1.73 = 73907) eGFR NON- AMER. (test 107 ML/MIN/1.73 code = 09131) CALC BUN/CREAT (test code = 23 RATIO [...] code = 2219) 33 U/L COMPREHENSIVE METABOLIC [id number] 00:00:00 Test Item Value Reference Range Interpretation Comments GLUCOSE (test code = 2217) 131 MG/DL BUN (test code = 2208) 16 MG/DL CREATININE (test code = 2214) 0.71 MG/DL eGFR AMER. (test code 124 ML/MIN/1.73 = 97685) eGFR NON- AMER. (test 107 ML/MIN/1.73 code = 77111) CALC BUN/CREAT (test code = 23 RATIO [...] (test code = 2219) 33 U/L LIPID [id number] 00:00:00 Test Item Value Reference Range Interpretation Comments CHOLESTEROL (test code = 2210) 201 MG/DL TRIGLYCERIDES (test code = 2232) 1014 MG/DL HDL CHOLESTEROL (test code = 25 MG/DL 2220) CALC LDL CHOL (test code = 2237) NOTE MG/DL RISK RATIO LDL/HDL (test code = (NOTE) RATIO 2238) LIPID [id number] 00:00:00 Test Item Value Reference Range Interpretation Comments CHOLESTEROL (test code = 2210) 201 MG/DL TRIGLYCERIDES (test code = 2232) 1014 MG/DL HDL CHOLESTEROL (test code = 25 MG/DL 2220) CALC LDL CHOL (test code = 2237) NOTE MG/DL RISK RATIO LDL/HDL (test code = (NOTE) RATIO 2238) HEMOGLOBIN [id number] 00:00:00 Test Item Value Reference Range Interpretation Comments HEMOGLOBIN A1c (test code = 82393) 8.5 % HEMOGLOBIN [id number] 00:00:00 Test Item Value Reference Range Interpretation Comments HEMOGLOBIN A1c (test code = 27229) 8.5 % HEMOGLOBIN [id number] 00:00:00 Test Item Value Reference Range Interpretation Comments HEMOGLOBIN A1c (test code = 12123) 8.5 % COMPREHENSIVE METABOLIC [id number] 00:00:00 Test Item Value Reference Range Interpretation Comments GLUCOSE (test code = 2217) 131 MG/DL BUN (test code = 2208) 16 MG/DL CREATININE (test code = 2214) 0.71 MG/DL eGFR AMER. (test code 124 ML/MIN/1.73 = 51210) eGFR NON- AMER. (test 107 ML/MIN/1.73 code = 59313) CALC BUN/CREAT (test code = 23 RATIO [...] code = 2219) 33 U/L COMPREHENSIVE METABOLIC [id number] 00:00:00 Test Item Value Reference Range Interpretation Comments GLUCOSE (test code = 2217) 131 MG/DL BUN (test code = 2208) 16 MG/DL CREATININE (test code = 2214) 0.71 MG/DL eGFR AMER. (test code 124 ML/MIN/1.73 = 53360) eGFR NON- AMER. (test 107 ML/MIN/1.73 code = 27039) CALC BUN/CREAT (test code = 23 RATIO [...] (test code = 2219) 33 U/L LIPID [id number] 00:00:00 Test Item Value Reference Range Interpretation Comments CHOLESTEROL (test code = 2210) 201 MG/DL TRIGLYCERIDES (test code = 2232) 1014 MG/DL HDL CHOLESTEROL (test code = 25 MG/DL 2220) CALC LDL CHOL (test code = 2237) NOTE MG/DL RISK RATIO LDL/HDL (test code = (NOTE) RATIO 2238) LIPID [id number] 00:00:00 Test Item Value Reference Range Interpretation Comments CHOLESTEROL (test code = 2210) 201 MG/DL TRIGLYCERIDES (test code = 2232) 1014 MG/DL HDL CHOLESTEROL (test code = 25 MG/DL 2220) CALC LDL CHOL (test code = 2237) NOTE MG/DL RISK RATIO LDL/HDL (test code = (NOTE) RATIO 2238) HEMOGLOBIN [id number] 00:00:00 Test Item Value Reference Range Interpretation Comments HEMOGLOBIN A1c (test code = 62864) 8.5 % HEMOGLOBIN [id number] 00:00:00 Test Item Value Reference Range Interpretation Comments HEMOGLOBIN A1c (test code = 07083) 8.5 % HEMOGLOBIN [id number] 00:00:00 Test Item Value Reference Range Interpretation Comments HEMOGLOBIN A1c (test code = 59099) 8.5 % COMPREHENSIVE METABOLIC [id number] 00:00:00 Test Item Value Reference Range Interpretation Comments GLUCOSE (test code = 2217) 131 MG/DL BUN (test code = 2208) 16 MG/DL CREATININE (test code = 2214) 0.71 MG/DL eGFR AMER. (test code 124 ML/MIN/1.73 = 13011) eGFR NON- AMER. (test 107 ML/MIN/1.73 code = 51833) CALC BUN/CREAT (test code = 23 RATIO [...] code = 2219) 33 U/L COMPREHENSIVE METABOLIC [id number] 00:00:00 Test Item Value Reference Range Interpretation Comments GLUCOSE (test code = 2217) 131 MG/DL BUN (test code = 2208) 16 MG/DL CREATININE (test code = 2214) 0.71 MG/DL eGFR AMER. (test code 124 ML/MIN/1.73 = 03084) eGFR NON- AMER. (test 107 ML/MIN/1.73 code = 78520) CALC BUN/CREAT (test code = 23 RATIO [...] (test code = 2219) 33 U/L LIPID [id number] 00:00:00 Test Item Value Reference Range Interpretation Comments CHOLESTEROL (test code = 2210) 201 MG/DL TRIGLYCERIDES (test code = 2232) 1014 MG/DL HDL CHOLESTEROL (test code = 25 MG/DL 2220) CALC LDL CHOL (test code = 2237) NOTE MG/DL RISK RATIO LDL/HDL (test code = (NOTE) RATIO 2238) LIPID [id number] 00:00:00 Test Item Value Reference Range Interpretation Comments CHOLESTEROL (test code = 2210) 201 MG/DL TRIGLYCERIDES (test code = 2232) 1014 MG/DL HDL CHOLESTEROL (test code = 25 MG/DL 2220) CALC LDL CHOL (test code = 2237) NOTE MG/DL RISK RATIO LDL/HDL (test code = (NOTE) RATIO 2238) HEMOGLOBIN [id number] 00:00:00 Test Item Value Reference Range Interpretation Comments HEMOGLOBIN A1c (test code = 57853) 8.5 % HEMOGLOBIN [id number] 00:00:00 Test Item Value Reference Range Interpretation Comments HEMOGLOBIN A1c (test code = 23799) 8.5 % HEMOGLOBIN [id number] 00:00:00 Test Item Value Reference Range Interpretation Comments HEMOGLOBIN A1c (test code = 30543) 8.5 % COMPREHENSIVE METABOLIC [id number] 00:00:00 Test Item Value Reference Range Interpretation Comments GLUCOSE (test code = 2217) 131 MG/DL BUN (test code = 2208) 16 MG/DL CREATININE (test code = 2214) 0.71 MG/DL eGFR AMER. (test code 124 ML/MIN/1.73 = 21224) eGFR NON- AMER. (test 107 ML/MIN/1.73 code = 53956) CALC BUN/CREAT (test code = 23 RATIO [...] ALKALINE PHOSPHATASE (test 32 U/L code = 220) AST (test code = 2218) 26 U/L ALT (test code = 2219) 33 U/L COMPREHENSIVE METABOLIC [id number] 00:00:00 Test Item Value Reference Range Interpretation Comments GLUCOSE (test code = 2217) 131 MG/DL BUN (test code = 2208) 16 MG/DL CREATININE (test code = 2214) 0.71 MG/DL eGFR AMER. (test code 124 ML/MIN/1.73 = 33914) eGFR NON- AMER. (test 107 ML/MIN/1.73 code = 54508) CALC BUN/CREAT (test code = 23 RATIO [...] (test code = 2219) 33 U/L LIPID [id number] 00:00:00 Test Item Value Reference Range Interpretation Comments CHOLESTEROL (test code = 2210) 201 MG/DL TRIGLYCERIDES (test code = 2232) 1014 MG/DL HDL CHOLESTEROL (test code = 25 MG/DL 2220) CALC LDL CHOL (test code = 2237) NOTE MG/DL RISK RATIO LDL/HDL (test code = (NOTE) RATIO 2238) LIPID [id number] 00:00:00 Test Item Value Reference Range Interpretation Comments CHOLESTEROL (test code = 2210) 201 MG/DL TRIGLYCERIDES (test code = 2232) 1014 MG/DL HDL CHOLESTEROL (test code = 25 MG/DL 2220) CALC LDL CHOL (test code = 2237) NOTE MG/DL RISK RATIO LDL/HDL (test code = (NOTE) RATIO 2238) HEMOGLOBIN [id number] 00:00:00 Test Item Value Reference Range Interpretation Comments HEMOGLOBIN A1c (test code = 70927) 8.5 % HEMOGLOBIN [id number] 00:00:00 Test Item Value Reference Range Interpretation Comments HEMOGLOBIN A1c (test code = 55958) 8.5 % HEMOGLOBIN [id number] 00:00:00 Test Item Value Reference Range Interpretation Comments HEMOGLOBIN A1c (test code = 23784) 8.5 % COMPREHENSIVE METABOLIC [id number] 00:00:00 Test Item Value Reference Range Interpretation Comments GLUCOSE (test code = 2217) 131 MG/DL BUN (test code = 2208) 16 MG/DL CREATININE (test code = 2214) 0.71 MG/DL eGFR AMER. (test code 124 ML/MIN/1.73 = 75408) eGFR NON- AMER. (test 107 ML/MIN/1.73 code = 26953) CALC BUN/CREAT (test code = 23 RATIO [...] code = 2219) 33 U/L COMPREHENSIVE METABOLIC [id number] 00:00:00 Test Item Value Reference Range Interpretation Comments GLUCOSE (test code = 2217) 131 MG/DL BUN (test code = 2208) 16 MG/DL CREATININE (test code = 2214) 0.71 MG/DL eGFR AMER. (test code 124 ML/MIN/1.73 = 44320) eGFR NON- AMER. (test 107 ML/MIN/1.73 code = 22130) CALC BUN/CREAT (test code = 23 RATIO [...] (test code = 2219) 33 U/L LIPID [id number] 00:00:00 Test Item Value Reference Range Interpretation Comments CHOLESTEROL (test code = 2210) 201 MG/DL TRIGLYCERIDES (test code = 2232) 1014 MG/DL HDL CHOLESTEROL (test code = 25 MG/DL 2220) CALC LDL CHOL (test code = 2237) NOTE MG/DL RISK RATIO LDL/HDL (test code = (NOTE) RATIO 2238) LIPID [id number] 00:00:00 Test Item Value Reference Range Interpretation Comments CHOLESTEROL (test code = 2210) 201 MG/DL TRIGLYCERIDES (test code = 2232) 1014 MG/DL HDL CHOLESTEROL (test code = 25 MG/DL 2220) CALC LDL CHOL (test code = 2237) NOTE MG/DL RISK RATIO LDL/HDL (test code = (NOTE) RATIO 2238) HEMOGLOBIN [id number] 00:00:00 Test Item Value Reference Range Interpretation Comments HEMOGLOBIN A1c (test code = 91686) 8.5 % HEMOGLOBIN [id number] 00:00:00 Test Item Value Reference Range Interpretation Comments HEMOGLOBIN A1c (test code = 12399) 8.5 % HEMOGLOBIN [id number] 00:00:00 Test Item Value Reference Range Interpretation Comments HEMOGLOBIN A1c (test code = 19973) 8.5 % COMPREHENSIVE METABOLIC [id number] 00:00:00 Test Item Value Reference Range Interpretation Comments GLUCOSE (test code = 2217) 131 MG/DL BUN (test code = 2208) 16 MG/DL CREATININE (test code = 2214) 0.71 MG/DL eGFR AMER. (test code 124 ML/MIN/1.73 = 05488) eGFR NON- AMER. (test 107 ML/MIN/1.73 code = 70640) CALC BUN/CREAT (test code = 23 RATIO [...] code = 2219) 33 U/L COMPREHENSIVE METABOLIC [id number] 00:00:00 Test Item Value Reference Range Interpretation Comments GLUCOSE (test code = 2217) 131 MG/DL BUN (test code = 2208) 16 MG/DL CREATININE (test code = 2214) 0.71 MG/DL eGFR AMER. (test code 124 ML/MIN/1.73 = 34457) eGFR NON- AMER. (test 107 ML/MIN/1.73 code = 60245) CALC BUN/CREAT (test code = 23 RATIO [...] (test code = 2219) 33 U/L LIPID [id number] 00:00:00 Test Item Value Reference Range Interpretation Comments CHOLESTEROL (test code = 2210) 201 MG/DL TRIGLYCERIDES (test code = 2232) 1014 MG/DL HDL CHOLESTEROL (test code = 25 MG/DL 2220) CALC LDL CHOL (test code = 2237) NOTE MG/DL RISK RATIO LDL/HDL (test code = (NOTE) RATIO 2238) LIPID [id number] 00:00:00 Test Item Value Reference Range Interpretation Comments CHOLESTEROL (test code = 2210) 201 MG/DL TRIGLYCERIDES (test code = 2232) 1014 MG/DL HDL CHOLESTEROL (test code = 25 MG/DL 2220) CALC LDL CHOL (test code = 2237) NOTE MG/DL RISK RATIO LDL/HDL (test code = (NOTE) RATIO 2238) HEMOGLOBIN [id number] 00:00:00 Test Item Value Reference Range Interpretation Comments HEMOGLOBIN A1c (test code = 22228) 8.5 % HEMOGLOBIN [id number] 00:00:00 Test Item Value Reference Range Interpretation Comments HEMOGLOBIN A1c (test code = 27319) 8.5 % COMPREHENSIVE METABOLIC [id number] 00:00:00 Test Item Value Reference Range Interpretation Comments GLUCOSE (test code = 2217) 131 MG/DL BUN (test code = 2208) 16 MG/DL CREATININE (test code = 2214) 0.71 MG/DL eGFR AMER. (test code 124 ML/MIN/1.73 = 52189) eGFR NON- AMER. (test 107 ML/MIN/1.73 code = 66332) CALC BUN/CREAT (test code = 23 RATIO [...] (test code = 2219) 33 U/L LIPID [id number] 00:00:00 Test Item Value Reference Range Interpretation Comments CHOLESTEROL (test code = 2210) 201 MG/DL TRIGLYCERIDES (test code = 2232) 1014 MG/DL HDL CHOLESTEROL (test code = 25 MG/DL 2219) CALC LDL CHOL (test code = 2237) NOTE MG/DL RISK RATIO LDL/HDL (test code = (NOTE) RATIO 2238) HEMOGLOBIN [id number] 00:00:00 Test Item Value Reference Range Interpretation Comments HEMOGLOBIN A1c (test code = 91890) 8.5 % HEMOGLOBIN [id number] 00:00:00 Test Item Value Reference Range Interpretation Comments HEMOGLOBIN A1c (test code = 71687) 8.5 % HEMOGLOBIN [id number] 00:00:00 Test Item Value Reference Range Interpretation Comments HEMOGLOBIN A1c (test code = 19661) 8.5 % COMPREHENSIVE METABOLIC [id number] 00:00:00 Test Item Value Reference Range Interpretation Comments GLUCOSE (test code = 2217) 131 MG/DL BUN (test code = 2208) 16 MG/DL CREATININE (test code = 2214) 0.71 MG/DL eGFR AMER. (test code 124 ML/MIN/1.73 = 67919) eGFR NON- AMER. (test 107 ML/MIN/1.73 code = 09206) CALC BUN/CREAT (test code = 23 RATIO [...] code = 2219) 33 U/L COMPREHENSIVE METABOLIC [id number] 00:00:00 Test Item Value Reference Range Interpretation Comments GLUCOSE (test code = 2217) 131 MG/DL BUN (test code = 2208) 16 MG/DL CREATININE (test code = 2214) 0.71 MG/DL eGFR AMER. (test code 124 ML/MIN/1.73 = 55079) eGFR NON- AMER. (test 107 ML/MIN/1.73 code = 14690) CALC BUN/CREAT (test code = 23 RATIO [...] (test code = 2219) 33 U/L LIPID [id number] 00:00:00 Test Item Value Reference Range Interpretation Comments CHOLESTEROL (test code = 2210) 201 MG/DL TRIGLYCERIDES (test code = 2232) 1014 MG/DL HDL CHOLESTEROL (test code = 25 MG/DL 2220) CALC LDL CHOL (test code = 2237) NOTE MG/DL RISK RATIO LDL/HDL (test code = (NOTE) RATIO 2238) LIPID [id number] 00:00:00 Test Item Value Reference Range Interpretation Comments CHOLESTEROL (test code = 2210) 201 MG/DL TRIGLYCERIDES (test code = 2232) 1014 MG/DL HDL CHOLESTEROL (test code = 25 MG/DL 2220) CALC LDL CHOL (test code = 2237) NOTE MG/DL RISK RATIO LDL/HDL (test code = (NOTE) RATIO 2238) HEMOGLOBIN [id number] 00:00:00 Test Item Value Reference Range Interpretation Comments HEMOGLOBIN A1c (test code = 09076) 8.5 % HEMOGLOBIN [id number] 00:00:00 Test Item Value Reference Range Interpretation Comments HEMOGLOBIN A1c (test code = 98431) 8.5 % HEMOGLOBIN [id number] 00:00:00 Test Item Value Reference Range Interpretation Comments HEMOGLOBIN A1c (test code = 91140) 8.5 % COMPREHENSIVE METABOLIC [id number] 00:00:00 Test Item Value Reference Range Interpretation Comments GLUCOSE (test code = 2217) 131 MG/DL BUN (test code = 2208) 16 MG/DL CREATININE (test code = 2214) 0.71 MG/DL eGFR AMER. (test code 124 ML/MIN/1.73 = 46730) eGFR NON- AMER. (test 107 ML/MIN/1.73 code = 25744) CALC BUN/CREAT (test code = 23 RATIO [...] code = 2219) 33 U/L COMPREHENSIVE METABOLIC [id number] 00:00:00 Test Item Value Reference Range Interpretation Comments GLUCOSE (test code = 2217) 131 MG/DL BUN (test code = 2208) 16 MG/DL CREATININE (test code = 2214) 0.71 MG/DL eGFR AMER. (test code 124 ML/MIN/1.73 = 56623) eGFR NON- AMER. (test 107 ML/MIN/1.73 code = 83602) CALC BUN/CREAT (test code = 23 RATIO [...] (test code = 2219) 33 U/L LIPID [id number] 00:00:00 Test Item Value Reference Range Interpretation Comments CHOLESTEROL (test code = 2210) 201 MG/DL TRIGLYCERIDES (test code = 2232) 1014 MG/DL HDL CHOLESTEROL (test code = 25 MG/DL 2220) CALC LDL CHOL (test code = 2237) NOTE MG/DL RISK RATIO LDL/HDL (test code = (NOTE) RATIO 2238) LIPID [id number] 00:00:00 Test Item Value Reference Range Interpretation Comments CHOLESTEROL (test code = 2210) 201 MG/DL TRIGLYCERIDES (test code = 2232) 1014 MG/DL HDL CHOLESTEROL (test code = 25 MG/DL 2220) CALC LDL CHOL (test code = 2237) NOTE MG/DL RISK RATIO LDL/HDL (test code = (NOTE) RATIO 2238) HEMOGLOBIN [id number] 00:00:00 Test Item Value Reference Range Interpretation Comments HEMOGLOBIN A1c (test code = 19783) 8.5 % HEMOGLOBIN [id number] 00:00:00 Test Item Value Reference Range Interpretation Comments HEMOGLOBIN A1c (test code = 82146) 8.5 % HEMOGLOBIN [id number] 00:00:00 Test Item Value Reference Range Interpretation Comments HEMOGLOBIN A1c (test code = 45606) 8.5 % COMPREHENSIVE METABOLIC [id number] 00:00:00 Test Item Value Reference Range Interpretation Comments GLUCOSE (test code = 2217) 131 MG/DL BUN (test code = 2208) 16 MG/DL CREATININE (test code = 2214) 0.71 MG/DL eGFR AMER. (test code 124 ML/MIN/1.73 = 89071) eGFR NON- AMER. (test 107 ML/MIN/1.73 code = 64109) CALC BUN/CREAT (test code = 23 RATIO [...] code = 2219) 33 U/L COMPREHENSIVE METABOLIC [id number] 00:00:00 Test Item Value Reference Range Interpretation Comments GLUCOSE (test code = 2217) 131 MG/DL BUN (test code = 2208) 16 MG/DL CREATININE (test code = 2214) 0.71 MG/DL eGFR AMER. (test code 124 ML/MIN/1.73 = 00701) eGFR NON- AMER. (test 107 ML/MIN/1.73 code = 42757) CALC BUN/CREAT (test code = 23 RATIO [...] (test code = 2219) 33 U/L LIPID [id number] 00:00:00 Test Item Value Reference Range Interpretation Comments CHOLESTEROL (test code = 2210) 201 MG/DL TRIGLYCERIDES (test code = 2232) 1014 MG/DL HDL CHOLESTEROL (test code = 25 MG/DL 2220) CALC LDL CHOL (test code = 2237) NOTE MG/DL RISK RATIO LDL/HDL (test code = (NOTE) RATIO 2238) LIPID [id number] 00:00:00 Test Item Value Reference Range Interpretation Comments CHOLESTEROL (test code = 2210) 201 MG/DL TRIGLYCERIDES (test code = 2232) 1014 MG/DL HDL CHOLESTEROL (test code = 25 MG/DL 2220) CALC LDL CHOL (test code = 2237) NOTE MG/DL RISK RATIO LDL/HDL (test code = (NOTE) RATIO 2238) CULTURE, HERPES [id number] 00:00:00 Test Item Value Reference Range Interpretation Comments SPECIMEN SOURCE (test code = 53939) LABIA HERPES CULTURE (test code = 3533) NEGATIVE CULTURE, HERPES [id number] 00:00:00 Test Item Value Reference Range Interpretation Comments SPECIMEN SOURCE (test code = 38481) LABIA HERPES CULTURE (test code = 3533) NEGATIVE CULTURE, HERPES [id number] 00:00:00 Test Item Value Reference Range Interpretation Comments SPECIMEN SOURCE (test code = 50439) LABIA HERPES CULTURE (test code = 3533) NEGATIVE CULTURE, HERPES [id number] 00:00:00 Test Item Value Reference Range Interpretation Comments SPECIMEN SOURCE (test code = 93638) LABIA HERPES CULTURE (test code = 3533) NEGATIVE CULTURE, HERPES [id number] 00:00:00 Test Item Value Reference Range Interpretation Comments SPECIMEN SOURCE (test code = 10851) LABIA HERPES CULTURE (test code = 3533) NEGATIVE CULTURE, HERPES [id number] 00:00:00 Test Item Value Reference Range Interpretation Comments SPECIMEN SOURCE (test code = 25374) LABIA HERPES CULTURE (test code = 3533) NEGATIVE CULTURE, HERPES [id number] 00:00:00 Test Item Value Reference Range Interpretation Comments SPECIMEN SOURCE (test code = 39395) LABIA HERPES CULTURE (test code = 3533) NEGATIVE CULTURE, HERPES [id number] 00:00:00 Test Item Value Reference Range Interpretation Comments SPECIMEN SOURCE (test code = 66781) LABIA HERPES CULTURE (test code = 3533) NEGATIVE CULTURE, HERPES [id number] 00:00:00 Test Item Value Reference Range Interpretation Comments SPECIMEN SOURCE (test code = 97253) LABIA HERPES CULTURE (test code = 3533) NEGATIVE CULTURE, HERPES [id number] 00:00:00 Test Item Value Reference Range Interpretation Comments SPECIMEN SOURCE (test code = 50408) LABIA HERPES CULTURE (test code = 3533) NEGATIVE CULTURE, HERPES [id number] 00:00:00 Test Item Value Reference Range Interpretation Comments SPECIMEN SOURCE (test code = 47686) LABIA HERPES CULTURE (test code = 3533) NEGATIVE CULTURE, HERPES [id number] 00:00:00 Test Item Value Reference Range Interpretation Comments SPECIMEN SOURCE (test code = 96224) LABIA HERPES CULTURE (test code = 3533) NEGATIVE CULTURE, HERPES [id number] 00:00:00 Test Item Value Reference Range Interpretation Comments SPECIMEN SOURCE (test code = 46904) LABIA HERPES CULTURE (test code = 3533) NEGATIVE CULTURE, HERPES [id number] 00:00:00 Test Item Value Reference Range Interpretation Comments SPECIMEN SOURCE (test code = 09431) LABIA HERPES CULTURE (test code = 3533) NEGATIVE CULTURE, HERPES [id number] 00:00:00 Test Item Value Reference Range Interpretation Comments SPECIMEN SOURCE (test code = 67183) LABIA HERPES CULTURE (test code = 3533) NEGATIVE CULTURE, HERPES [id number] 00:00:00 Test Item Value Reference Range Interpretation Comments SPECIMEN SOURCE (test code = 65566) LABIA HERPES CULTURE (test code = 3533) NEGATIVE CULTURE, HERPES [id number] 00:00:00 Test Item Value Reference Range Interpretation Comments SPECIMEN SOURCE (test code = 47574) LABIA HERPES CULTURE (test code = 3533) NEGATIVE CULTURE, HERPES [id number] 00:00:00 Test Item Value Reference Range Interpretation Comments SPECIMEN SOURCE (test code = 98801) LABIA HERPES CULTURE (test code = 3533) NEGATIVE CULTURE, HERPES [id number] 00:00:00 Test Item Value Reference Range Interpretation Comments SPECIMEN SOURCE (test code = 46555) LABIA HERPES CULTURE (test code = 3533) NEGATIVE CULTURE, HERPES [id number] 00:00:00 Test Item Value Reference Range Interpretation Comments SPECIMEN SOURCE (test code = 47712) LABIA HERPES CULTURE (test code = 3533) NEGATIVE CULTURE, HERPES [id number] 00:00:00 Test Item Value Reference Range Interpretation Comments SPECIMEN SOURCE (test code = 23275) LABIA HERPES CULTURE (test code = 3533) NEGATIVE VAGINAL PATHOGENS DNA [id number] 00:00:00 Test Item Value Reference Range Interpretation Comments ANDIE SPECIES (test code = ) NEGATIVE G. VAGINALIS (test code = 90487) NEGATIVE T. VAGINALIS (test code = 68711) NEGATIVE VAGINAL PATHOGENS DNA [id number] 00:00:00 Test Item Value Reference Range Interpretation Comments ANDIE SPECIES (test code = 89371) NEGATIVE G. VAGINALIS (test code = 21489) NEGATIVE T. VAGINALIS (test code = 15486) NEGATIVE VAGINAL PATHOGENS DNA [id number] 00:00:00 Test Item Value Reference Range Interpretation Comments ANDIE SPECIES (test code = 94172) NEGATIVE G. VAGINALIS (test code = 88387) NEGATIVE T. VAGINALIS (test code = 36560) NEGATIVE VAGINAL PATHOGENS DNA [id number] 00:00:00 Test Item Value Reference Range Interpretation Comments ANDIE SPECIES (test code = 95357) NEGATIVE G. VAGINALIS (test code = 64431) NEGATIVE T. VAGINALIS (test code = 53297) NEGATIVE VAGINAL PATHOGENS DNA [id number] 00:00:00 Test Item Value Reference Range Interpretation Comments ANDIE SPECIES (test code = 31534) NEGATIVE G. VAGINALIS (test code = 82843) NEGATIVE T. VAGINALIS (test code = 01000) NEGATIVE VAGINAL PATHOGENS DNA [id number] 00:00:00 Test Item Value Reference Range Interpretation Comments ANDIE SPECIES (test code = 87841) NEGATIVE G. VAGINALIS (test code = 91496) NEGATIVE T. VAGINALIS (test code = 78555) NEGATIVE VAGINAL PATHOGENS DNA [id number] 00:00:00 Test Item Value Reference Range Interpretation Comments ANDIE SPECIES (test code = 30665) NEGATIVE G. VAGINALIS (test code = 91739) NEGATIVE T. VAGINALIS (test code = 73066) NEGATIVE VAGINAL PATHOGENS DNA [id number] 00:00:00 Test Item Value Reference Range Interpretation Comments ANDIE SPECIES (test code = 05597) NEGATIVE G. VAGINALIS (test code = 66739) NEGATIVE T. VAGINALIS (test code = 03968) NEGATIVE VAGINAL PATHOGENS DNA [id number] 00:00:00 Test Item Value Reference Range Interpretation Comments ANDIE SPECIES (test code = 17836) NEGATIVE G. VAGINALIS (test code = 30591) NEGATIVE T. VAGINALIS (test code = 67774) NEGATIVE VAGINAL PATHOGENS DNA [id number] 00:00:00 Test Item Value Reference Range Interpretation Comments ANDIE SPECIES (test code = 83175) NEGATIVE G. VAGINALIS (test code = 67560) NEGATIVE T. VAGINALIS (test code = 81102) NEGATIVE VAGINAL PATHOGENS DNA [id number] 00:00:00 Test Item Value Reference Range Interpretation Comments ANDIE SPECIES (test code = 04852) NEGATIVE G. VAGINALIS (test code = 91694) NEGATIVE T. VAGINALIS (test code = 80432) NEGATIVE VAGINAL PATHOGENS DNA [id number] 00:00:00 Test Item Value Reference Range Interpretation Comments ANDIE SPECIES (test code = 40350) NEGATIVE G. VAGINALIS (test code = 83118) NEGATIVE T. VAGINALIS (test code = 31391) NEGATIVE VAGINAL PATHOGENS DNA [id number] 00:00:00 Test Item Value Reference Range Interpretation Comments ANDIE SPECIES (test code = 07613) NEGATIVE G. VAGINALIS (test code = 03323) NEGATIVE T. VAGINALIS (test code = 25149) NEGATIVE VAGINAL PATHOGENS DNA [id number] 00:00:00 Test Item Value Reference Range Interpretation Comments ANDIE SPECIES (test code = 90278) NEGATIVE G. VAGINALIS (test code = 21075) NEGATIVE T. VAGINALIS (test code = 81879) NEGATIVE VAGINAL PATHOGENS DNA [id number] 00:00:00 Test Item Value Reference Range Interpretation Comments ANDIE SPECIES (test code = 32870) NEGATIVE G. VAGINALIS (test code = 85334) NEGATIVE T. VAGINALIS (test code = 15956) NEGATIVE VAGINAL PATHOGENS DNA [id number] 00:00:00 Test Item Value Reference Range Interpretation Comments ANDIE SPECIES (test code = 65975) NEGATIVE G. VAGINALIS (test code = 54397) NEGATIVE T. VAGINALIS (test code = 91340) NEGATIVE VAGINAL PATHOGENS DNA [id number] 00:00:00 Test Item Value Reference Range Interpretation Comments ANDIE SPECIES (test code = 97367) NEGATIVE G. VAGINALIS (test code = 22900) NEGATIVE T. VAGINALIS (test code = 97941) NEGATIVE VAGINAL PATHOGENS DNA [id number] 00:00:00 Test Item Value Reference Range Interpretation Comments ANDIE SPECIES (test code = 08250) NEGATIVE G. VAGINALIS (test code = 68434) NEGATIVE T. VAGINALIS (test code = 51638) NEGATIVE VAGINAL PATHOGENS DNA [id number] 00:00:00 Test Item Value Reference Range Interpretation Comments ANDIE SPECIES (test code = 81406) NEGATIVE G. VAGINALIS (test code = 41224) NEGATIVE T. VAGINALIS (test code = 40094) NEGATIVE VAGINAL PATHOGENS DNA [id number] 00:00:00 Test Item Value Reference Range Interpretation Comments ANDIE SPECIES (test code = 04322) NEGATIVE G. VAGINALIS (test code = 95493) NEGATIVE T. VAGINALIS (test code = 30868) NEGATIVE VAGINAL PATHOGENS DNA [id number] 00:00:00 Test Item Value Reference Range Interpretation Comments ANDIE SPECIES (test code = ) NEGATIVE G. VAGINALIS (test code = ) NEGATIVE T. VAGINALIS (test code = ) NEGATIVE COMPREHENSIVE METABOLIC [id number] 00:00:00 Test Item Value Reference Range Interpretation Comments GLUCOSE (test code = 2217) 138 MG/DL BUN (test code = 2208) 13 MG/DL CREATININE (test code = 2214) 0.50 MG/DL eGFR AMER. (test code 141 ML/MIN/1.73 = 79389) eGFR NON- AMER. (test 122 ML/MIN/1.73 code = 50700) CALC BUN/CREAT (test code = 26 RATIO [...] code = 2219) 41 U/L COMPREHENSIVE METABOLIC [id number] 00:00:00 Test Item Value Reference Range Interpretation Comments GLUCOSE (test code = 2217) 138 MG/DL BUN (test code = 2208) 13 MG/DL CREATININE (test code = 2214) 0.50 MG/DL eGFR AMER. (test code 141 ML/MIN/1.73 = 12891) eGFR NON- AMER. (test 122 ML/MIN/1.73 code = 28294) CALC BUN/CREAT (test code = 26 RATIO [...] (test code = 2219) 41 U/L LIPID [id number] 00:00:00 Test Item Value Reference Range Interpretation Comments CHOLESTEROL (test code = 2210) 359 MG/DL TRIGLYCERIDES (test code = 2232) 1659 MG/DL HDL CHOLESTEROL (test code = 15 MG/DL 2220) CALC LDL CHOL (test code = 2237) NOTE MG/DL RISK RATIO LDL/HDL (test code = (NOTE) RATIO 2238) LIPID [id number] 00:00:00 Test Item Value Reference Range Interpretation Comments CHOLESTEROL (test code = 2210) 359 MG/DL TRIGLYCERIDES (test code = 2232) 1659 MG/DL HDL CHOLESTEROL (test code = 15 MG/DL 2220) CALC LDL CHOL (test code = 2237) NOTE MG/DL RISK RATIO LDL/HDL (test code = (NOTE) RATIO 2238) CBC W/AUTO [id number] 00:00:00 Test Item Value Reference Range Interpretation [...] code = 1015) 287 K/UL CBC W/AUTO [id number] 00:00:00 Test Item Value Reference Range Interpretation [...] code = 1015) 287 K/UL CBC W/AUTO [id number] 00:00:00 Test Item Value Reference Range Interpretation [...] (test code = 1015) 287 K/UL HEMOGLOBIN [id number] 00:00:00 Test Item Value Reference Range Interpretation Comments HEMOGLOBIN A1c (test code = 58294) 9.8 % HEMOGLOBIN [id number] 00:00:00 Test Item Value Reference Range Interpretation Comments HEMOGLOBIN A1c (test code = 68013) 9.8 % HEMOGLOBIN [id number] 00:00:00 Test Item Value Reference Range Interpretation Comments HEMOGLOBIN A1c (test code = 47403) 9.8 % [id number] 00:00:00 Test Item Value Reference Range Interpretation Comments TSH (test code = 2821) 2.110 UIU/ML [id number] 00:00:00 Test Item Value Reference Range Interpretation Comments TSH (test code = 2821) 2.110 UIU/ML [id number] 00:00:00 Test Item Value Reference Range Interpretation Comments TSH (test code = 2821) 2.110 UIU/ML COMPREHENSIVE METABOLIC [id number] 00:00:00 Test Item Value Reference Range Interpretation Comments GLUCOSE (test code = 2217) 138 MG/DL BUN (test code = 2208) 13 MG/DL CREATININE (test code = 2214) 0.50 MG/DL eGFR AMER. (test code 141 ML/MIN/1.73 = 49052) eGFR NON- AMER. (test 122 ML/MIN/1.73 code = 87653) CALC BUN/CREAT (test code = 26 RATIO [...] code = 2219) 41 U/L COMPREHENSIVE METABOLIC [id number] 00:00:00 Test Item Value Reference Range Interpretation Comments GLUCOSE (test code = 2217) 138 MG/DL BUN (test code = 2208) 13 MG/DL CREATININE (test code = 2214) 0.50 MG/DL eGFR AMER. (test code 141 ML/MIN/1.73 = 12610) eGFR NON- AMER. (test 122 ML/MIN/1.73 code = 68164) CALC BUN/CREAT (test code = 26 RATIO [...] (test code = 2219) 41 U/L LIPID [id number] 00:00:00 Test Item Value Reference Range Interpretation Comments CHOLESTEROL (test code = 2210) 359 MG/DL TRIGLYCERIDES (test code = 2232) 1659 MG/DL HDL CHOLESTEROL (test code = 15 MG/DL 2220) CALC LDL CHOL (test code = 2237) NOTE MG/DL RISK RATIO LDL/HDL (test code = (NOTE) RATIO 2238) LIPID [id number] 00:00:00 Test Item Value Reference Range Interpretation Comments CHOLESTEROL (test code = 2210) 359 MG/DL TRIGLYCERIDES (test code = 2232) 1659 MG/DL HDL CHOLESTEROL (test code = 15 MG/DL 2220) CALC LDL CHOL (test code = 2237) NOTE MG/DL RISK RATIO LDL/HDL (test code = (NOTE) RATIO 2238) CBC W/AUTO [id number] 00:00:00 Test Item Value Reference Range Interpretation [...] code = 1015) 287 K/UL CBC W/AUTO [id number] 00:00:00 Test Item Value Reference Range Interpretation [...] code = 1015) 287 K/UL CBC W/AUTO [id number] 00:00:00 Test Item Value Reference Range Interpretation [...] (test code = 1015) 287 K/UL HEMOGLOBIN [id number] 00:00:00 Test Item Value Reference Range Interpretation Comments HEMOGLOBIN A1c (test code = 73179) 9.8 % HEMOGLOBIN [id number] 00:00:00 Test Item Value Reference Range Interpretation Comments HEMOGLOBIN A1c (test code = 23141) 9.8 % HEMOGLOBIN [id number] 00:00:00 Test Item Value Reference Range Interpretation Comments HEMOGLOBIN A1c (test code = 90278) 9.8 % [id number] 00:00:00 Test Item Value Reference Range Interpretation Comments TSH (test code = 2821) 2.110 UIU/ML [id number] 00:00:00 Test Item Value Reference Range Interpretation Comments TSH (test code = 2821) 2.110 UIU/ML [id number] 00:00:00 Test Item Value Reference Range Interpretation Comments TSH (test code = 2821) 2.110 UIU/ML COMPREHENSIVE METABOLIC [id number] 00:00:00 Test Item Value Reference Range Interpretation Comments GLUCOSE (test code = 2217) 138 MG/DL BUN (test code = 2208) 13 MG/DL CREATININE (test code = 2214) 0.50 MG/DL eGFR AMER. (test code 141 ML/MIN/1.73 = 96035) eGFR NON- AMER. (test 122 ML/MIN/1.73 code = 66028) CALC BUN/CREAT (test code = 26 RATIO [...] code = 2219) 41 U/L COMPREHENSIVE METABOLIC [id number] 00:00:00 Test Item Value Reference Range Interpretation Comments GLUCOSE (test code = 2217) 138 MG/DL BUN (test code = 2208) 13 MG/DL CREATININE (test code = 2214) 0.50 MG/DL eGFR AMER. (test code 141 ML/MIN/1.73 = 23425) eGFR NON- AMER. (test 122 ML/MIN/1.73 code = 19171) CALC BUN/CREAT (test code = 26 RATIO [...] (test code = 2219) 41 U/L LIPID [id number] 00:00:00 Test Item Value Reference Range Interpretation Comments CHOLESTEROL (test code = 2210) 359 MG/DL TRIGLYCERIDES (test code = 2232) 1659 MG/DL HDL CHOLESTEROL (test code = 15 MG/DL 2220) CALC LDL CHOL (test code = 2237) NOTE MG/DL RISK RATIO LDL/HDL (test code = (NOTE) RATIO 2238) LIPID [id number] 00:00:00 Test Item Value Reference Range Interpretation Comments CHOLESTEROL (test code = 2210) 359 MG/DL TRIGLYCERIDES (test code = 2232) 1659 MG/DL HDL CHOLESTEROL (test code = 15 MG/DL 2220) CALC LDL CHOL (test code = 2237) NOTE MG/DL RISK RATIO LDL/HDL (test code = (NOTE) RATIO 2238) CBC W/AUTO [id number] 00:00:00 Test Item Value Reference Range Interpretation [...] code = 1015) 287 K/UL CBC W/AUTO [id number] 00:00:00 Test Item Value Reference Range Interpretation [...] code = 1015) 287 K/UL CBC W/AUTO [id number] 00:00:00 Test Item Value Reference Range Interpretation [...] (test code = 1015) 287 K/UL HEMOGLOBIN [id number] 00:00:00 Test Item Value Reference Range Interpretation Comments HEMOGLOBIN A1c (test code = 60432) 9.8 % HEMOGLOBIN [id number] 00:00:00 Test Item Value Reference Range Interpretation Comments HEMOGLOBIN A1c (test code = 19136) 9.8 % HEMOGLOBIN [id number] 00:00:00 Test Item Value Reference Range Interpretation Comments HEMOGLOBIN A1c (test code = 04179) 9.8 % [id number] 00:00:00 Test Item Value Reference Range Interpretation Comments TSH (test code = 2821) 2.110 UIU/ML [id number] 00:00:00 Test Item Value Reference Range Interpretation Comments TSH (test code = 2821) 2.110 UIU/ML [id number] 00:00:00 Test Item Value Reference Range Interpretation Comments TSH (test code = 2821) 2.110 UIU/ML COMPREHENSIVE METABOLIC [id number] 00:00:00 Test Item Value Reference Range Interpretation Comments GLUCOSE (test code = 2217) 138 MG/DL BUN (test code = 2208) 13 MG/DL CREATININE (test code = 2214) 0.50 MG/DL eGFR AMER. (test code 141 ML/MIN/1.73 = 65688) eGFR NON- AMER. (test 122 ML/MIN/1.73 code = 56286) CALC BUN/CREAT (test code = 26 RATIO [...] code = 2219) 41 U/L COMPREHENSIVE METABOLIC [id number] 00:00:00 Test Item Value Reference Range Interpretation Comments GLUCOSE (test code = 2217) 138 MG/DL BUN (test code = 2208) 13 MG/DL CREATININE (test code = 2214) 0.50 MG/DL eGFR AMER. (test code 141 ML/MIN/1.73 = 39700) eGFR NON- AMER. (test 122 ML/MIN/1.73 code = 19355) CALC BUN/CREAT (test code = 26 RATIO [...] (test code = 2219) 41 U/L LIPID [id number] 00:00:00 Test Item Value Reference Range Interpretation Comments CHOLESTEROL (test code = 2210) 359 MG/DL TRIGLYCERIDES (test code = 2232) 1659 MG/DL HDL CHOLESTEROL (test code = 15 MG/DL 2220) CALC LDL CHOL (test code = 2237) NOTE MG/DL RISK RATIO LDL/HDL (test code = (NOTE) RATIO 2238) LIPID [id number] 00:00:00 Test Item Value Reference Range Interpretation Comments CHOLESTEROL (test code = 2210) 359 MG/DL TRIGLYCERIDES (test code = 2232) 1659 MG/DL HDL CHOLESTEROL (test code = 15 MG/DL 2220) CALC LDL CHOL (test code = 2237) NOTE MG/DL RISK RATIO LDL/HDL (test code = (NOTE) RATIO 2238) CBC W/AUTO [id number] 00:00:00 Test Item Value Reference Range Interpretation [...] code = 1015) 287 K/UL CBC W/AUTO [id number] 00:00:00 Test Item Value Reference Range Interpretation [...] code = 1015) 287 K/UL CBC W/AUTO [id number] 00:00:00 Test Item Value Reference Range Interpretation [...] (test code = 1015) 287 K/UL HEMOGLOBIN [id number] 00:00:00 Test Item Value Reference Range Interpretation Comments HEMOGLOBIN A1c (test code = 89883) 9.8 % HEMOGLOBIN [id number] 00:00:00 Test Item Value Reference Range Interpretation Comments HEMOGLOBIN A1c (test code = 69893) 9.8 % HEMOGLOBIN [id number] 00:00:00 Test Item Value Reference Range Interpretation Comments HEMOGLOBIN A1c (test code = 38972) 9.8 % [id number] 00:00:00 Test Item Value Reference Range Interpretation Comments TSH (test code = 2821) 2.110 UIU/ML [id number] 00:00:00 Test Item Value Reference Range Interpretation Comments TSH (test code = 2821) 2.110 UIU/ML [id number] 00:00:00 Test Item Value Reference Range Interpretation Comments TSH (test code = 2821) 2.110 UIU/ML COMPREHENSIVE METABOLIC [id number] 00:00:00 Test Item Value Reference Range Interpretation Comments GLUCOSE (test code = 2217) 138 MG/DL BUN (test code = 2208) 13 MG/DL CREATININE (test code = 2214) 0.50 MG/DL eGFR AMER. (test code 141 ML/MIN/1.73 = 61921) eGFR NON- AMER. (test 122 ML/MIN/1.73 code = 21629) CALC BUN/CREAT (test code = 26 RATIO [...] code = 2219) 41 U/L COMPREHENSIVE METABOLIC [id number] 00:00:00 Test Item Value Reference Range Interpretation Comments GLUCOSE (test code = 2217) 138 MG/DL BUN (test code = 2208) 13 MG/DL CREATININE (test code = 2214) 0.50 MG/DL eGFR AMER. (test code 141 ML/MIN/1.73 = 91315) eGFR NON- AMER. (test 122 ML/MIN/1.73 code = 98711) CALC BUN/CREAT (test code = 26 RATIO [...] (test code = 2219) 41 U/L LIPID [id number] 00:00:00 Test Item Value Reference Range Interpretation Comments CHOLESTEROL (test code = 2210) 359 MG/DL TRIGLYCERIDES (test code = 2232) 1659 MG/DL HDL CHOLESTEROL (test code = 15 MG/DL 2220) CALC LDL CHOL (test code = 2237) NOTE MG/DL RISK RATIO LDL/HDL (test code = (NOTE) RATIO 2238) LIPID [id number] 00:00:00 Test Item Value Reference Range Interpretation Comments CHOLESTEROL (test code = 2210) 359 MG/DL TRIGLYCERIDES (test code = 2232) 1659 MG/DL HDL CHOLESTEROL (test code = 15 MG/DL 2220) CALC LDL CHOL (test code = 2237) NOTE MG/DL RISK RATIO LDL/HDL (test code = (NOTE) RATIO 2238) CBC W/AUTO [id number] 00:00:00 Test Item Value Reference Range Interpretation [...] code = 1015) 287 K/UL CBC W/AUTO [id number] 00:00:00 Test Item Value Reference Range Interpretation [...] code = 1015) 287 K/UL CBC W/AUTO [id number] 00:00:00 Test Item Value Reference Range Interpretation [...] (test code = 1015) 287 K/UL HEMOGLOBIN [id number] 00:00:00 Test Item Value Reference Range Interpretation Comments HEMOGLOBIN A1c (test code = 39172) 9.8 % HEMOGLOBIN [id number] 00:00:00 Test Item Value Reference Range Interpretation Comments HEMOGLOBIN A1c (test code = 66508) 9.8 % HEMOGLOBIN [id number] 00:00:00 Test Item Value Reference Range Interpretation Comments HEMOGLOBIN A1c (test code = 79486) 9.8 % [id number] 00:00:00 Test Item Value Reference Range Interpretation Comments TSH (test code = 2821) 2.110 UIU/ML [id number] 00:00:00 Test Item Value Reference Range Interpretation Comments TSH (test code = 2821) 2.110 UIU/ML [id number] 00:00:00 Test Item Value Reference Range Interpretation Comments TSH (test code = 2821) 2.110 UIU/ML COMPREHENSIVE METABOLIC [id number] 00:00:00 Test Item Value Reference Range Interpretation Comments GLUCOSE (test code = 2217) 138 MG/DL BUN (test code = 2208) 13 MG/DL CREATININE (test code = 2214) 0.50 MG/DL eGFR AMER. (test code 141 ML/MIN/1.73 = 71460) eGFR NON- AMER. (test 122 ML/MIN/1.73 code = 26675) CALC BUN/CREAT (test code = 26 RATIO [...] code = 2219) 41 U/L COMPREHENSIVE METABOLIC [id number] 00:00:00 Test Item Value Reference Range Interpretation Comments GLUCOSE (test code = 2217) 138 MG/DL BUN (test code = 2208) 13 MG/DL CREATININE (test code = 2214) 0.50 MG/DL eGFR AMER. (test code 141 ML/MIN/1.73 = 63110) eGFR NON- AMER. (test 122 ML/MIN/1.73 code = 76464) CALC BUN/CREAT (test code = 26 RATIO [...] (test code = 2219) 41 U/L LIPID [id number] 00:00:00 Test Item Value Reference Range Interpretation Comments CHOLESTEROL (test code = 2210) 359 MG/DL TRIGLYCERIDES (test code = 2232) 1659 MG/DL HDL CHOLESTEROL (test code = 15 MG/DL 2220) CALC LDL CHOL (test code = 2237) NOTE MG/DL RISK RATIO LDL/HDL (test code = (NOTE) RATIO 2238) LIPID [id number] 00:00:00 Test Item Value Reference Range Interpretation Comments CHOLESTEROL (test code = 2210) 359 MG/DL TRIGLYCERIDES (test code = 2232) 1659 MG/DL HDL CHOLESTEROL (test code = 15 MG/DL 2220) CALC LDL CHOL (test code = 2237) NOTE MG/DL RISK RATIO LDL/HDL (test code = (NOTE) RATIO 2238) CBC W/AUTO [id number] 00:00:00 Test Item Value Reference Range Interpretation [...] code = 1015) 287 K/UL CBC W/AUTO [id number] 00:00:00 Test Item Value Reference Range Interpretation [...] code = 1015) 287 K/UL CBC W/AUTO [id number] 00:00:00 Test Item Value Reference Range Interpretation [...] (test code = 1015) 287 K/UL HEMOGLOBIN [id number] 00:00:00 Test Item Value Reference Range Interpretation Comments HEMOGLOBIN A1c (test code = 77872) 9.8 % HEMOGLOBIN [id number] 00:00:00 Test Item Value Reference Range Interpretation Comments HEMOGLOBIN A1c (test code = 44677) 9.8 % HEMOGLOBIN [id number] 00:00:00 Test Item Value Reference Range Interpretation Comments HEMOGLOBIN A1c (test code = 21283) 9.8 % [id number] 00:00:00 Test Item Value Reference Range Interpretation Comments TSH (test code = 2821) 2.110 UIU/ML [id number] 00:00:00 Test Item Value Reference Range Interpretation Comments TSH (test code = 2821) 2.110 UIU/ML [id number] 00:00:00 Test Item Value Reference Range Interpretation Comments TSH (test code = 2821) 2.110 UIU/ML COMPREHENSIVE METABOLIC [id number] 00:00:00 Test Item Value Reference Range Interpretation Comments GLUCOSE (test code = 2217) 138 MG/DL BUN (test code = 2208) 13 MG/DL CREATININE (test code = 2214) 0.50 MG/DL eGFR AMER. (test code 141 ML/MIN/1.73 = 75760) eGFR NON- AMER. (test 122 ML/MIN/1.73 code = 79603) CALC BUN/CREAT (test code = 26 RATIO [...] code = 2219) 41 U/L COMPREHENSIVE METABOLIC [id number] 00:00:00 Test Item Value Reference Range Interpretation Comments GLUCOSE (test code = 2217) 138 MG/DL BUN (test code = 2208) 13 MG/DL CREATININE (test code = 2214) 0.50 MG/DL eGFR AMER. (test code 141 ML/MIN/1.73 = 73828) eGFR NON- AMER. (test 122 ML/MIN/1.73 code = 82177) CALC BUN/CREAT (test code = 26 RATIO [...] (test code = 2219) 41 U/L LIPID [id number] 00:00:00 Test Item Value Reference Range Interpretation Comments CHOLESTEROL (test code = 2210) 359 MG/DL TRIGLYCERIDES (test code = 2232) 1659 MG/DL HDL CHOLESTEROL (test code = 15 MG/DL 2220) CALC LDL CHOL (test code = 2237) NOTE MG/DL RISK RATIO LDL/HDL (test code = (NOTE) RATIO 2238) LIPID [id number] 00:00:00 Test Item Value Reference Range Interpretation Comments CHOLESTEROL (test code = 2210) 359 MG/DL TRIGLYCERIDES (test code = 2232) 1659 MG/DL HDL CHOLESTEROL (test code = 15 MG/DL 2220) CALC LDL CHOL (test code = 2237) NOTE MG/DL RISK RATIO LDL/HDL (test code = (NOTE) RATIO 2238) CBC W/AUTO [id number] 00:00:00 Test Item Value Reference Range Interpretation [...] code = 1015) 287 K/UL CBC W/AUTO [id number] 00:00:00 Test Item Value Reference Range Interpretation [...] code = 1015) 287 K/UL CBC W/AUTO [id number] 00:00:00 Test Item Value Reference Range Interpretation [...] (test code = 1015) 287 K/UL HEMOGLOBIN [id number] 00:00:00 Test Item Value Reference Range Interpretation Comments HEMOGLOBIN A1c (test code = 41573) 9.8 % HEMOGLOBIN [id number] 00:00:00 Test Item Value Reference Range Interpretation Comments HEMOGLOBIN A1c (test code = 00254) 9.8 % HEMOGLOBIN [id number] 00:00:00 Test Item Value Reference Range Interpretation Comments HEMOGLOBIN A1c (test code = 58108) 9.8 % [id number] 00:00:00 Test Item Value Reference Range Interpretation Comments TSH (test code = 2821) 2.110 UIU/ML [id number] 00:00:00 Test Item Value Reference Range Interpretation Comments TSH (test code = 2821) 2.110 UIU/ML [id number] 00:00:00 Test Item Value Reference Range Interpretation Comments TSH (test code = 2821) 2.110 UIU/ML COMPREHENSIVE METABOLIC [id number] 00:00:00 Test Item Value Reference Range Interpretation Comments GLUCOSE (test code = 2217) 138 MG/DL BUN (test code = 2208) 13 MG/DL CREATININE (test code = 2214) 0.50 MG/DL eGFR AMER. (test code 141 ML/MIN/1.73 = 32004) eGFR NON- AMER. (test 122 ML/MIN/1.73 code = 81746) CALC BUN/CREAT (test code = 26 RATIO [...] (test code = 2219) 41 U/L LIPID [id number] 00:00:00 Test Item Value Reference Range Interpretation Comments CHOLESTEROL (test code = 2210) 359 MG/DL TRIGLYCERIDES (test code = 2232) 1659 MG/DL HDL CHOLESTEROL (test code = 15 MG/DL 2219) CALC LDL CHOL (test code = 2237) NOTE MG/DL RISK RATIO LDL/HDL (test code = (NOTE) RATIO 2238) CBC W/AUTO [id number] 00:00:00 Test Item Value Reference Range Interpretation [...] code = 1015) 287 K/UL CBC W/AUTO [id number] 00:00:00 Test Item Value Reference Range Interpretation [...] (test code = 1015) 287 K/UL HEMOGLOBIN [id number] 00:00:00 Test Item Value Reference Range Interpretation Comments HEMOGLOBIN A1c (test code = 00472) 9.8 % HEMOGLOBIN [id number] 00:00:00 Test Item Value Reference Range Interpretation Comments HEMOGLOBIN A1c (test code = 46551) 9.8 % COMPREHENSIVE METABOLIC [id number] 00:00:00 Test Item Value Reference Range Interpretation Comments GLUCOSE (test code = 2217) 138 MG/DL BUN (test code = 2208) 13 MG/DL CREATININE (test code = 2214) 0.50 MG/DL eGFR AMER. (test code 141 ML/MIN/1.73 = 33581) eGFR NON- AMER. (test 122 ML/MIN/1.73 code = 32340) CALC BUN/CREAT (test code = 26 RATIO [...] code = 2219) 41 U/L COMPREHENSIVE METABOLIC [id number] 00:00:00 Test Item Value Reference Range Interpretation Comments GLUCOSE (test code = 2217) 138 MG/DL BUN (test code = 2208) 13 MG/DL CREATININE (test code = 2214) 0.50 MG/DL eGFR AMER. (test code 141 ML/MIN/1.73 = 74306) eGFR NON- AMER. (test 122 ML/MIN/1.73 code = 45417) CALC BUN/CREAT (test code = 26 RATIO [...] (test code = 2219) 41 U/L LIPID [id number] 00:00:00 Test Item Value Reference Range Interpretation Comments CHOLESTEROL (test code = 2210) 359 MG/DL TRIGLYCERIDES (test code = 2232) 1659 MG/DL HDL CHOLESTEROL (test code = 15 MG/DL 2220) CALC LDL CHOL (test code = 2237) NOTE MG/DL RISK RATIO LDL/HDL (test code = (NOTE) RATIO 2238) LIPID [id number] 00:00:00 Test Item Value Reference Range Interpretation Comments CHOLESTEROL (test code = 2210) 359 MG/DL TRIGLYCERIDES (test code = 2232) 1659 MG/DL HDL CHOLESTEROL (test code = 15 MG/DL 2220) CALC LDL CHOL (test code = 2237) NOTE MG/DL RISK RATIO LDL/HDL (test code = (NOTE) RATIO 2238) [id number] 00:00:00 Test Item Value Reference Range Interpretation Comments TSH (test code = 2821) 2.110 UIU/ML CBC W/AUTO [id number] 00:00:00 Test Item Value Reference Range Interpretation [...] code = 1015) 287 K/UL CBC W/AUTO [id number] 00:00:00 Test Item Value Reference Range Interpretation [...] code = 1015) 287 K/UL CBC W/AUTO [id number] 00:00:00 Test Item Value Reference Range Interpretation [...] (test code = 1015) 287 K/UL HEMOGLOBIN [id number] 00:00:00 Test Item Value Reference Range Interpretation Comments HEMOGLOBIN A1c (test code = 56858) 9.8 % HEMOGLOBIN [id number] 00:00:00 Test Item Value Reference Range Interpretation Comments HEMOGLOBIN A1c (test code = 58080) 9.8 % HEMOGLOBIN [id number] 00:00:00 Test Item Value Reference Range Interpretation Comments HEMOGLOBIN A1c (test code = 27059) 9.8 % [id number] 00:00:00 Test Item Value Reference Range Interpretation Comments TSH (test code = 2821) 2.110 UIU/ML [id number] 00:00:00 Test Item Value Reference Range Interpretation Comments TSH (test code = 2821) 2.110 UIU/ML [id number] 00:00:00 Test Item Value Reference Range Interpretation Comments TSH (test code = 2821) 2.110 UIU/ML [id number] 00:00:00 Test Item Value Reference Range Interpretation Comments TSH (test code = 2821) 2.110 UIU/ML COMPREHENSIVE METABOLIC [id number] 00:00:00 Test Item Value Reference Range Interpretation Comments GLUCOSE (test code = 2217) 138 MG/DL BUN (test code = 2208) 13 MG/DL CREATININE (test code = 2214) 0.50 MG/DL eGFR AMER. (test code 141 ML/MIN/1.73 = 77582) eGFR NON- AMER. (test 122 ML/MIN/1.73 code = 12979) CALC BUN/CREAT (test code = 26 RATIO [...] code = 2219) 41 U/L COMPREHENSIVE METABOLIC [id number] 00:00:00 Test Item Value Reference Range Interpretation Comments GLUCOSE (test code = 2217) 138 MG/DL BUN (test code = 2208) 13 MG/DL CREATININE (test code = 2214) 0.50 MG/DL eGFR AMER. (test code 141 ML/MIN/1.73 = 58056) eGFR NON- AMER. (test 122 ML/MIN/1.73 code = 22297) CALC BUN/CREAT (test code = 26 RATIO [...] (test code = 2219) 41 U/L LIPID [id number] 00:00:00 Test Item Value Reference Range Interpretation Comments CHOLESTEROL (test code = 2210) 359 MG/DL TRIGLYCERIDES (test code = 2232) 1659 MG/DL HDL CHOLESTEROL (test code = 15 MG/DL 2220) CALC LDL CHOL (test code = 2237) NOTE MG/DL RISK RATIO LDL/HDL (test code = (NOTE) RATIO 2238) LIPID [id number] 00:00:00 Test Item Value Reference Range Interpretation Comments CHOLESTEROL (test code = 2210) 359 MG/DL TRIGLYCERIDES (test code = 2232) 1659 MG/DL HDL CHOLESTEROL (test code = 15 MG/DL 2220) CALC LDL CHOL (test code = 2237) NOTE MG/DL RISK RATIO LDL/HDL (test code = (NOTE) RATIO 2238) CBC W/AUTO [id number] 00:00:00 Test Item Value Reference Range Interpretation [...] code = 1015) 287 K/UL CBC W/AUTO [id number] 00:00:00 Test Item Value Reference Range Interpretation [...] code = 1015) 287 K/UL CBC W/AUTO [id number] 00:00:00 Test Item Value Reference Range Interpretation [...] (test code = 1015) 287 K/UL HEMOGLOBIN [id number] 00:00:00 Test Item Value Reference Range Interpretation Comments HEMOGLOBIN A1c (test code = 21613) 9.8 % HEMOGLOBIN [id number] 00:00:00 Test Item Value Reference Range Interpretation Comments HEMOGLOBIN A1c (test code = 33924) 9.8 % HEMOGLOBIN [id number] 00:00:00 Test Item Value Reference Range Interpretation Comments HEMOGLOBIN A1c (test code = 47429) 9.8 % [id number] 00:00:00 Test Item Value Reference Range Interpretation Comments TSH (test code = 2821) 2.110 UIU/ML [id number] 00:00:00 Test Item Value Reference Range Interpretation Comments TSH (test code = 2821) 2.110 UIU/ML [id number] 00:00:00 Test Item Value Reference Range Interpretation Comments TSH (test code = 2821) 2.110 UIU/ML COMPREHENSIVE METABOLIC [id number] 00:00:00 Test Item Value Reference Range Interpretation Comments GLUCOSE (test code = 2217) 138 MG/DL BUN (test code = 2208) 13 MG/DL CREATININE (test code = 2214) 0.50 MG/DL eGFR AMER. (test code 141 ML/MIN/1.73 = 30330) eGFR NON- AMER. (test 122 ML/MIN/1.73 code = 29950) CALC BUN/CREAT (test code = 26 RATIO [...] code = 2219) 41 U/L COMPREHENSIVE METABOLIC [id number] 00:00:00 Test Item Value Reference Range Interpretation Comments GLUCOSE (test code = 2217) 138 MG/DL BUN (test code = 2208) 13 MG/DL CREATININE (test code = 2214) 0.50 MG/DL eGFR AMER. (test code 141 ML/MIN/1.73 = 60415) eGFR NON- AMER. (test 122 ML/MIN/1.73 code = 79280) CALC BUN/CREAT (test code = 26 RATIO [...] (test code = 2219) 41 U/L LIPID [id number] 00:00:00 Test Item Value Reference Range Interpretation Comments CHOLESTEROL (test code = 2210) 359 MG/DL TRIGLYCERIDES (test code = 2232) 1659 MG/DL HDL CHOLESTEROL (test code = 15 MG/DL 2220) CALC LDL CHOL (test code = 2237) NOTE MG/DL RISK RATIO LDL/HDL (test code = (NOTE) RATIO 2238) LIPID [id number] 00:00:00 Test Item Value Reference Range Interpretation Comments CHOLESTEROL (test code = 2210) 359 MG/DL TRIGLYCERIDES (test code = 2232) 1659 MG/DL HDL CHOLESTEROL (test code = 15 MG/DL 2220) CALC LDL CHOL (test code = 2237) NOTE MG/DL RISK RATIO LDL/HDL (test code = (NOTE) RATIO 2238) CBC W/AUTO [id number] 00:00:00 Test Item Value Reference Range Interpretation [...] code = 1015) 287 K/UL CBC W/AUTO [id number] 00:00:00 Test Item Value Reference Range Interpretation [...] code = 1015) 287 K/UL CBC W/AUTO [id number] 00:00:00 Test Item Value Reference Range Interpretation [...] (test code = 1015) 287 K/UL HEMOGLOBIN [id number] 00:00:00 Test Item Value Reference Range Interpretation Comments HEMOGLOBIN A1c (test code = 74176) 9.8 % HEMOGLOBIN [id number] 00:00:00 Test Item Value Reference Range Interpretation Comments HEMOGLOBIN A1c (test code = 34017) 9.8 % HEMOGLOBIN [id number] 00:00:00 Test Item Value Reference Range Interpretation Comments HEMOGLOBIN A1c (test code = 54730) 9.8 % [id number] 00:00:00 Test Item Value Reference Range Interpretation Comments TSH (test code = 2821) 2.110 UIU/ML [id number] 00:00:00 Test Item Value Reference Range Interpretation Comments TSH (test code = 2821) 2.110 UIU/ML [id number] 00:00:00 Test Item Value Reference Range Interpretation Comments TSH (test code = 2821) 2.110 UIU/ML LIPID [id number] 00:00:00 Test Item Value Reference Range Interpretation Comments CHOLESTEROL (test code = 2210) 195 MG/DL TRIGLYCERIDES (test code = 2232) 505 MG/DL HDL CHOLESTEROL (test code = 35 MG/DL 2220) CALC LDL CHOL (test code = 2237) NOTE MG/DL RISK RATIO LDL/HDL (test code = (NOTE) RATIO 2238) LIPID [id number] 00:00:00 Test Item Value Reference Range Interpretation [...] (test code = 2821) 2.000 UIU/ML LIPID [id number] 00:00:00 Test Item Value Reference Range Interpretation Comments CHOLESTEROL (test code = 2210) 195 MG/DL TRIGLYCERIDES (test code = 2232) 505 MG/DL HDL CHOLESTEROL (test code = 35 MG/DL 2220) CALC LDL CHOL (test code = 2237) NOTE MG/DL RISK RATIO LDL/HDL (test code = (NOTE) RATIO 2238) LIPID [id number] 00:00:00 Test Item Value Reference Range Interpretation [...] (test code = 2821) 2.000 UIU/ML LIPID [id number] 00:00:00 Test Item Value Reference Range Interpretation Comments CHOLESTEROL (test code = 2210) 195 MG/DL TRIGLYCERIDES (test code = 2232) 505 MG/DL HDL CHOLESTEROL (test code = 35 MG/DL 2220) CALC LDL CHOL (test code = 2237) NOTE MG/DL RISK RATIO LDL/HDL (test code = (NOTE) RATIO 2238) LIPID [id number] 00:00:00 Test Item Value Reference Range Interpretation [...] (test code = 2821) 2.000 UIU/ML LIPID [id number] 00:00:00 Test Item Value Reference Range Interpretation Comments CHOLESTEROL (test code = 2210) 195 MG/DL TRIGLYCERIDES (test code = 2232) 505 MG/DL HDL CHOLESTEROL (test code = 35 MG/DL 2220) CALC LDL CHOL (test code = 2237) NOTE MG/DL RISK RATIO LDL/HDL (test code = (NOTE) RATIO 2238) LIPID [id number] 00:00:00 Test Item Value Reference Range Interpretation [...] (test code = 2821) 2.000 UIU/ML LIPID [id number] 00:00:00 Test Item Value Reference Range Interpretation Comments CHOLESTEROL (test code = 2210) 195 MG/DL TRIGLYCERIDES (test code = 2232) 505 MG/DL HDL CHOLESTEROL (test code = 35 MG/DL 2220) CALC LDL CHOL (test code = 2237) NOTE MG/DL RISK RATIO LDL/HDL (test code = (NOTE) RATIO 2238) LIPID [id number] 00:00:00 Test Item Value Reference Range Interpretation [...] (test code = 2821) 2.000 UIU/ML LIPID [id number] 00:00:00 Test Item Value Reference Range Interpretation Comments CHOLESTEROL (test code = 2210) 195 MG/DL TRIGLYCERIDES (test code = 2232) 505 MG/DL HDL CHOLESTEROL (test code = 35 MG/DL 2220) CALC LDL CHOL (test code = 2237) NOTE MG/DL RISK RATIO LDL/HDL (test code = (NOTE) RATIO 2238) LIPID [id number] 00:00:00 Test Item Value Reference Range Interpretation [...] (test code = 2821) 2.000 UIU/ML LIPID [id number] 00:00:00 Test Item Value Reference Range Interpretation Comments CHOLESTEROL (test code = 2210) 195 MG/DL TRIGLYCERIDES (test code = 2232) 505 MG/DL HDL CHOLESTEROL (test code = 35 MG/DL 2220) CALC LDL CHOL (test code = 2237) NOTE MG/DL RISK RATIO LDL/HDL (test code = (NOTE) RATIO 2238) LIPID [id number] 00:00:00 Test Item Value Reference Range Interpretation [...] (test code = 2821) 2.000 UIU/ML LIPID [id number] 00:00:00 Test Item Value Reference Range Interpretation [...] (test code = 2821) 2.000 UIU/ML LIPID [id number] 00:00:00 Test Item Value Reference Range Interpretation Comments CHOLESTEROL (test code = 2210) 195 MG/DL TRIGLYCERIDES (test code = 2232) 505 MG/DL HDL CHOLESTEROL (test code = 35 MG/DL 2220) CALC LDL CHOL (test code = 2237) NOTE MG/DL RISK RATIO LDL/HDL (test code = (NOTE) RATIO 2238) LIPID [id number] 00:00:00 Test Item Value Reference Range Interpretation [...] (test code = 2821) 2.000 UIU/ML LIPID [id number] 00:00:00 Test Item Value Reference Range Interpretation Comments CHOLESTEROL (test code = 2210) 195 MG/DL TRIGLYCERIDES (test code = 2232) 505 MG/DL HDL CHOLESTEROL (test code = 35 MG/DL 2220) CALC LDL CHOL (test code = 2237) NOTE MG/DL RISK RATIO LDL/HDL (test code = (NOTE) RATIO 2238) LIPID [id number] 00:00:00 Test Item Value Reference Range Interpretation [...] (test code = 2821) 2.000 UIU/ML LIPID [id number] 00:00:00 Test Item Value Reference Range Interpretation Comments CHOLESTEROL (test code = 2210) 195 MG/DL TRIGLYCERIDES (test code = 2232) 505 MG/DL HDL CHOLESTEROL (test code = 35 MG/DL 2220) CALC LDL CHOL (test code = 2237) NOTE MG/DL RISK RATIO LDL/HDL (test code = (NOTE) RATIO 2238) LIPID [id number] 00:00:00 Test Item Value Reference Range Interpretation [...] code = 2821) 2.000 UIU/ML COMPREHENSIVE METABOLIC [id number] 00:00:00 Test Item Value Reference Range Interpretation Comments GLUCOSE (test code = 2217) 154 MG/DL BUN (test code = 2208) 12 MG/DL CREATININE (test code = 2214) 0.54 MG/DL eGFR AMER. (test code 139 ML/MIN/1.73 = 89921) eGFR NON- AMER. (test 120 ML/MIN/1.73 code = 22713) CALC BUN/CREAT (test code = 22 RATIO [...] code = 2219) 22 U/L COMPREHENSIVE METABOLIC [id number] 00:00:00 Test Item Value Reference Range Interpretation Comments GLUCOSE (test code = 2217) 154 MG/DL BUN (test code = 2208) 12 MG/DL CREATININE (test code = 2214) 0.54 MG/DL eGFR AMER. (test code 139 ML/MIN/1.73 = 25206) eGFR NON- AMER. (test 120 ML/MIN/1.73 code = 57937) CALC BUN/CREAT (test code = 22 RATIO [...] (test code = 2219) 22 U/L LIPID [id number] 00:00:00 Test Item Value Reference Range Interpretation Comments CHOLESTEROL (test code = 2210) 243 MG/DL TRIGLYCERIDES (test code = 2232) 1140 MG/DL HDL CHOLESTEROL (test code = 31 MG/DL 2220) CALC LDL CHOL (test code = 2237) NOTE MG/DL RISK RATIO LDL/HDL (test code = (NOTE) RATIO 2238) LIPID [id number] 00:00:00 Test Item Value Reference Range Interpretation Comments CHOLESTEROL (test code = 2210) 243 MG/DL TRIGLYCERIDES (test code = 2232) 1140 MG/DL HDL CHOLESTEROL (test code = 31 MG/DL 2220) CALC LDL CHOL (test code = 2237) NOTE MG/DL RISK RATIO LDL/HDL (test code = (NOTE) RATIO 2238) CBC W/AUTO [id number] 00:00:00 Test Item Value Reference Range Interpretation [...] code = 1015) 229 K/UL CBC W/AUTO [id number] 00:00:00 Test Item Value Reference Range Interpretation [...] code = 1015) 229 K/UL CBC W/AUTO [id number] 00:00:00 Test Item Value Reference Range Interpretation [...] (test code = 1015) 229 K/UL HEMOGLOBIN [id number] 00:00:00 Test Item Value Reference Range Interpretation Comments HEMOGLOBIN A1c (test code = 14439) 7.7 % HEMOGLOBIN [id number] 00:00:00 Test Item Value Reference Range Interpretation Comments HEMOGLOBIN A1c (test code = 99844) 7.7 % HEMOGLOBIN [id number] 00:00:00 Test Item Value Reference Range Interpretation Comments HEMOGLOBIN A1c (test code = 07002) 7.7 % COMPREHENSIVE METABOLIC [id number] 00:00:00 Test Item Value Reference Range Interpretation Comments GLUCOSE (test code = 2217) 154 MG/DL BUN (test code = 2208) 12 MG/DL CREATININE (test code = 2214) 0.54 MG/DL eGFR AMER. (test code 139 ML/MIN/1.73 = 58917) eGFR NON- AMER. (test 120 ML/MIN/1.73 code = 61561) CALC BUN/CREAT (test code = 22 RATIO [...] code = 2219) 22 U/L COMPREHENSIVE METABOLIC [id number] 00:00:00 Test Item Value Reference Range Interpretation Comments GLUCOSE (test code = 2217) 154 MG/DL BUN (test code = 2208) 12 MG/DL CREATININE (test code = 2214) 0.54 MG/DL eGFR AMER. (test code 139 ML/MIN/1.73 = 52645) eGFR NON- AMER. (test 120 ML/MIN/1.73 code = 12032) CALC BUN/CREAT (test code = 22 RATIO [...] (test code = 2219) 22 U/L LIPID [id number] 00:00:00 Test Item Value Reference Range Interpretation Comments CHOLESTEROL (test code = 2210) 243 MG/DL TRIGLYCERIDES (test code = 2232) 1140 MG/DL HDL CHOLESTEROL (test code = 31 MG/DL 2220) CALC LDL CHOL (test code = 2237) NOTE MG/DL RISK RATIO LDL/HDL (test code = (NOTE) RATIO 2238) LIPID [id number] 00:00:00 Test Item Value Reference Range Interpretation Comments CHOLESTEROL (test code = 2210) 243 MG/DL TRIGLYCERIDES (test code = 2232) 1140 MG/DL HDL CHOLESTEROL (test code = 31 MG/DL 2220) CALC LDL CHOL (test code = 2237) NOTE MG/DL RISK RATIO LDL/HDL (test code = (NOTE) RATIO 2238) CBC W/AUTO [id number] 00:00:00 Test Item Value Reference Range Interpretation [...] code = 1015) 229 K/UL CBC W/AUTO [id number] 00:00:00 Test Item Value Reference Range Interpretation [...] code = 1015) 229 K/UL CBC W/AUTO [id number] 00:00:00 Test Item Value Reference Range Interpretation [...] (test code = 1015) 229 K/UL HEMOGLOBIN [id number] 00:00:00 Test Item Value Reference Range Interpretation Comments HEMOGLOBIN A1c (test code = 56495) 7.7 % HEMOGLOBIN [id number] 00:00:00 Test Item Value Reference Range Interpretation Comments HEMOGLOBIN A1c (test code = 47948) 7.7 % HEMOGLOBIN [id number] 00:00:00 Test Item Value Reference Range Interpretation Comments HEMOGLOBIN A1c (test code = 23516) 7.7 % COMPREHENSIVE METABOLIC [id number] 00:00:00 Test Item Value Reference Range Interpretation Comments GLUCOSE (test code = 2217) 154 MG/DL BUN (test code = 2208) 12 MG/DL CREATININE (test code = 2214) 0.54 MG/DL eGFR AMER. (test code 139 ML/MIN/1.73 = 47748) eGFR NON- AMER. (test 120 ML/MIN/1.73 code = 75357) CALC BUN/CREAT (test code = 22 RATIO [...] code = 2219) 22 U/L COMPREHENSIVE METABOLIC [id number] 00:00:00 Test Item Value Reference Range Interpretation Comments GLUCOSE (test code = 2217) 154 MG/DL BUN (test code = 2208) 12 MG/DL CREATININE (test code = 2214) 0.54 MG/DL eGFR AMER. (test code 139 ML/MIN/1.73 = 44148) eGFR NON- AMER. (test 120 ML/MIN/1.73 code = 88171) CALC BUN/CREAT (test code = 22 RATIO [...] (test code = 2219) 22 U/L LIPID [id number] 00:00:00 Test Item Value Reference Range Interpretation Comments CHOLESTEROL (test code = 2210) 243 MG/DL TRIGLYCERIDES (test code = 2232) 1140 MG/DL HDL CHOLESTEROL (test code = 31 MG/DL 2220) CALC LDL CHOL (test code = 2237) NOTE MG/DL RISK RATIO LDL/HDL (test code = (NOTE) RATIO 2238) LIPID [id number] 00:00:00 Test Item Value Reference Range Interpretation Comments CHOLESTEROL (test code = 2210) 243 MG/DL TRIGLYCERIDES (test code = 2232) 1140 MG/DL HDL CHOLESTEROL (test code = 31 MG/DL 2220) CALC LDL CHOL (test code = 2237) NOTE MG/DL RISK RATIO LDL/HDL (test code = (NOTE) RATIO 2238) CBC W/AUTO [id number] 00:00:00 Test Item Value Reference Range Interpretation [...] code = 1015) 229 K/UL CBC W/AUTO [id number] 00:00:00 Test Item Value Reference Range Interpretation [...] code = 1015) 229 K/UL CBC W/AUTO [id number] 00:00:00 Test Item Value Reference Range Interpretation [...] (test code = 1015) 229 K/UL HEMOGLOBIN [id number] 00:00:00 Test Item Value Reference Range Interpretation Comments HEMOGLOBIN A1c (test code = 09558) 7.7 % HEMOGLOBIN [id number] 00:00:00 Test Item Value Reference Range Interpretation Comments HEMOGLOBIN A1c (test code = 44929) 7.7 % HEMOGLOBIN [id number] 00:00:00 Test Item Value Reference Range Interpretation Comments HEMOGLOBIN A1c (test code = 56404) 7.7 % COMPREHENSIVE METABOLIC [id number] 00:00:00 Test Item Value Reference Range Interpretation Comments GLUCOSE (test code = 2217) 154 MG/DL BUN (test code = 2208) 12 MG/DL CREATININE (test code = 2214) 0.54 MG/DL eGFR AMER. (test code 139 ML/MIN/1.73 = 51593) eGFR NON- AMER. (test 120 ML/MIN/1.73 code = 13560) CALC BUN/CREAT (test code = 22 RATIO [...] code = 2219) 22 U/L COMPREHENSIVE METABOLIC [id number] 00:00:00 Test Item Value Reference Range Interpretation Comments GLUCOSE (test code = 2217) 154 MG/DL BUN (test code = 2208) 12 MG/DL CREATININE (test code = 2214) 0.54 MG/DL eGFR AMER. (test code 139 ML/MIN/1.73 = 85576) eGFR NON- AMER. (test 120 ML/MIN/1.73 code = 23319) CALC BUN/CREAT (test code = 22 RATIO [...] (test code = 2219) 22 U/L LIPID [id number] 00:00:00 Test Item Value Reference Range Interpretation Comments CHOLESTEROL (test code = 2210) 243 MG/DL TRIGLYCERIDES (test code = 2232) 1140 MG/DL HDL CHOLESTEROL (test code = 31 MG/DL 2220) CALC LDL CHOL (test code = 2237) NOTE MG/DL RISK RATIO LDL/HDL (test code = (NOTE) RATIO 2238) LIPID [id number] 00:00:00 Test Item Value Reference Range Interpretation Comments CHOLESTEROL (test code = 2210) 243 MG/DL TRIGLYCERIDES (test code = 2232) 1140 MG/DL HDL CHOLESTEROL (test code = 31 MG/DL 2220) CALC LDL CHOL (test code = 2237) NOTE MG/DL RISK RATIO LDL/HDL (test code = (NOTE) RATIO 2238) CBC W/AUTO [id number] 00:00:00 Test Item Value Reference Range Interpretation [...] code = 1015) 229 K/UL CBC W/AUTO [id number] 00:00:00 Test Item Value Reference Range Interpretation [...] code = 1015) 229 K/UL CBC W/AUTO [id number] 00:00:00 Test Item Value Reference Range Interpretation [...] (test code = 1015) 229 K/UL HEMOGLOBIN [id number] 00:00:00 Test Item Value Reference Range Interpretation Comments HEMOGLOBIN A1c (test code = 28295) 7.7 % HEMOGLOBIN [id number] 00:00:00 Test Item Value Reference Range Interpretation Comments HEMOGLOBIN A1c (test code = 62656) 7.7 % HEMOGLOBIN [id number] 00:00:00 Test Item Value Reference Range Interpretation Comments HEMOGLOBIN A1c (test code = 41070) 7.7 % COMPREHENSIVE METABOLIC [id number] 00:00:00 Test Item Value Reference Range Interpretation Comments GLUCOSE (test code = 2217) 154 MG/DL BUN (test code = 2208) 12 MG/DL CREATININE (test code = 2214) 0.54 MG/DL eGFR AMER. (test code 139 ML/MIN/1.73 = 81017) eGFR NON- AMER. (test 120 ML/MIN/1.73 code = 79177) CALC BUN/CREAT (test code = 22 RATIO [...] code = 2219) 22 U/L COMPREHENSIVE METABOLIC [id number] 00:00:00 Test Item Value Reference Range Interpretation Comments GLUCOSE (test code = 2217) 154 MG/DL BUN (test code = 2208) 12 MG/DL CREATININE (test code = 2214) 0.54 MG/DL eGFR AMER. (test code 139 ML/MIN/1.73 = 88879) eGFR NON- AMER. (test 120 ML/MIN/1.73 code = 73651) CALC BUN/CREAT (test code = 22 RATIO [...] (test code = 2219) 22 U/L LIPID [id number] 00:00:00 Test Item Value Reference Range Interpretation Comments CHOLESTEROL (test code = 2210) 243 MG/DL TRIGLYCERIDES (test code = 2232) 1140 MG/DL HDL CHOLESTEROL (test code = 31 MG/DL 2220) CALC LDL CHOL (test code = 2237) NOTE MG/DL RISK RATIO LDL/HDL (test code = (NOTE) RATIO 2238) LIPID [id number] 00:00:00 Test Item Value Reference Range Interpretation Comments CHOLESTEROL (test code = 2210) 243 MG/DL TRIGLYCERIDES (test code = 2232) 1140 MG/DL HDL CHOLESTEROL (test code = 31 MG/DL 2220) CALC LDL CHOL (test code = 2237) NOTE MG/DL RISK RATIO LDL/HDL (test code = (NOTE) RATIO 2238) CBC W/AUTO [id number] 00:00:00 Test Item Value Reference Range Interpretation [...] code = 1015) 229 K/UL CBC W/AUTO [id number] 00:00:00 Test Item Value Reference Range Interpretation [...] code = 1015) 229 K/UL CBC W/AUTO [id number] 00:00:00 Test Item Value Reference Range Interpretation [...] (test code = 1015) 229 K/UL HEMOGLOBIN [id number] 00:00:00 Test Item Value Reference Range Interpretation Comments HEMOGLOBIN A1c (test code = 83375) 7.7 % HEMOGLOBIN [id number] 00:00:00 Test Item Value Reference Range Interpretation Comments HEMOGLOBIN A1c (test code = 45753) 7.7 % HEMOGLOBIN [id number] 00:00:00 Test Item Value Reference Range Interpretation Comments HEMOGLOBIN A1c (test code = 94175) 7.7 % COMPREHENSIVE METABOLIC [id number] 00:00:00 Test Item Value Reference Range Interpretation Comments GLUCOSE (test code = 2217) 154 MG/DL BUN (test code = 2208) 12 MG/DL CREATININE (test code = 2214) 0.54 MG/DL eGFR AMER. (test code 139 ML/MIN/1.73 = 61929) eGFR NON- AMER. (test 120 ML/MIN/1.73 code = 22752) CALC BUN/CREAT (test code = 22 RATIO [...] code = 2219) 22 U/L COMPREHENSIVE METABOLIC [id number] 00:00:00 Test Item Value Reference Range Interpretation Comments GLUCOSE (test code = 2217) 154 MG/DL BUN (test code = 2208) 12 MG/DL CREATININE (test code = 2214) 0.54 MG/DL eGFR AMER. (test code 139 ML/MIN/1.73 = 98993) eGFR NON- AMER. (test 120 ML/MIN/1.73 code = 00487) CALC BUN/CREAT (test code = 22 RATIO [...] (test code = 2219) 22 U/L LIPID [id number] 00:00:00 Test Item Value Reference Range Interpretation Comments CHOLESTEROL (test code = 2210) 243 MG/DL TRIGLYCERIDES (test code = 2232) 1140 MG/DL HDL CHOLESTEROL (test code = 31 MG/DL 2220) CALC LDL CHOL (test code = 2237) NOTE MG/DL RISK RATIO LDL/HDL (test code = (NOTE) RATIO 2238) LIPID [id number] 00:00:00 Test Item Value Reference Range Interpretation Comments CHOLESTEROL (test code = 2210) 243 MG/DL TRIGLYCERIDES (test code = 2232) 1140 MG/DL HDL CHOLESTEROL (test code = 31 MG/DL 2220) CALC LDL CHOL (test code = 2237) NOTE MG/DL RISK RATIO LDL/HDL (test code = (NOTE) RATIO 2238) CBC W/AUTO [id number] 00:00:00 Test Item Value Reference Range Interpretation [...] code = 1015) 229 K/UL CBC W/AUTO [id number] 00:00:00 Test Item Value Reference Range Interpretation [...] code = 1015) 229 K/UL CBC W/AUTO [id number] 00:00:00 Test Item Value Reference Range Interpretation [...] (test code = 1015) 229 K/UL HEMOGLOBIN [id number] 00:00:00 Test Item Value Reference Range Interpretation Comments HEMOGLOBIN A1c (test code = 42797) 7.7 % HEMOGLOBIN [id number] 00:00:00 Test Item Value Reference Range Interpretation Comments HEMOGLOBIN A1c (test code = 88134) 7.7 % HEMOGLOBIN [id number] 00:00:00 Test Item Value Reference Range Interpretation Comments HEMOGLOBIN A1c (test code = 70970) 7.7 % COMPREHENSIVE METABOLIC [id number] 00:00:00 Test Item Value Reference Range Interpretation Comments GLUCOSE (test code = 2217) 154 MG/DL BUN (test code = 2208) 12 MG/DL CREATININE (test code = 2214) 0.54 MG/DL eGFR AMER. (test code 139 ML/MIN/1.73 = 52344) eGFR NON- AMER. (test 120 ML/MIN/1.73 code = 84690) CALC BUN/CREAT (test code = 22 RATIO [...] code = 2219) 22 U/L COMPREHENSIVE METABOLIC [id number] 00:00:00 Test Item Value Reference Range Interpretation Comments GLUCOSE (test code = 2217) 154 MG/DL BUN (test code = 2208) 12 MG/DL CREATININE (test code = 2214) 0.54 MG/DL eGFR AMER. (test code 139 ML/MIN/1.73 = 35862) eGFR NON- AMER. (test 120 ML/MIN/1.73 code = 17921) CALC BUN/CREAT (test code = 22 RATIO [...] (test code = 2219) 22 U/L LIPID [id number] 00:00:00 Test Item Value Reference Range Interpretation Comments CHOLESTEROL (test code = 2210) 243 MG/DL TRIGLYCERIDES (test code = 2232) 1140 MG/DL HDL CHOLESTEROL (test code = 31 MG/DL 2219) CALC LDL CHOL (test code = 2237) NOTE MG/DL RISK RATIO LDL/HDL (test code = (NOTE) RATIO 2238) COMPREHENSIVE METABOLIC [id number] 00:00:00 Test Item Value Reference Range Interpretation Comments GLUCOSE (test code = 2217) 154 MG/DL BUN (test code = 2208) 12 MG/DL CREATININE (test code = 2214) 0.54 MG/DL eGFR AMER. (test code 139 ML/MIN/1.73 = 98972) eGFR NON- AMER. (test 120 ML/MIN/1.73 code = 25028) CALC BUN/CREAT (test code = 22 RATIO [...] (test code = 2219) 22 U/L LIPID [id number] 00:00:00 Test Item Value Reference Range Interpretation Comments CHOLESTEROL (test code = 2210) 243 MG/DL TRIGLYCERIDES (test code = 2232) 1140 MG/DL HDL CHOLESTEROL (test code = 31 MG/DL 2220) CALC LDL CHOL (test code = 2237) NOTE MG/DL RISK RATIO LDL/HDL (test code = (NOTE) RATIO 2238) CBC W/AUTO [id number] 00:00:00 Test Item Value Reference Range Interpretation [...] code = 1015) 229 K/UL CBC W/AUTO [id number] 00:00:00 Test Item Value Reference Range Interpretation [...] code = 1015) 229 K/UL CBC W/AUTO [id number] 00:00:00 Test Item Value Reference Range Interpretation [...] (test code = 1015) 229 K/UL HEMOGLOBIN [id number] 00:00:00 Test Item Value Reference Range Interpretation Comments HEMOGLOBIN A1c (test code = 24407) 7.7 % HEMOGLOBIN [id number] 00:00:00 Test Item Value Reference Range Interpretation Comments HEMOGLOBIN A1c (test code = 80253) 7.7 % HEMOGLOBIN [id number] 00:00:00 Test Item Value Reference Range Interpretation Comments HEMOGLOBIN A1c (test code = 53562) 7.7 % LIPID [id number] 00:00:00 Test Item Value Reference Range Interpretation Comments CHOLESTEROL (test code = 2210) 243 MG/DL TRIGLYCERIDES (test code = 2232) 1140 MG/DL HDL CHOLESTEROL (test code = 31 MG/DL 2220) CALC LDL CHOL (test code = 2237) NOTE MG/DL RISK RATIO LDL/HDL (test code = (NOTE) RATIO 2238) CBC W/AUTO [id number] 00:00:00 Test Item Value Reference Range Interpretation [...] code = 1015) 229 K/UL CBC W/AUTO [id number] 00:00:00 Test Item Value Reference Range Interpretation [...] code = 1015) 229 K/UL COMPREHENSIVE METABOLIC [id number] 00:00:00 Test Item Value Reference Range Interpretation Comments GLUCOSE (test code = 2217) 154 MG/DL BUN (test code = 2208) 12 MG/DL CREATININE (test code = 2214) 0.54 MG/DL eGFR AMER. (test code 139 ML/MIN/1.73 = 92584) eGFR NON- AMER. (test 120 ML/MIN/1.73 code = 09631) CALC BUN/CREAT (test code = 22 RATIO [...] code = 2219) 22 U/L COMPREHENSIVE METABOLIC [id number] 00:00:00 Test Item Value Reference Range Interpretation Comments GLUCOSE (test code = 2217) 154 MG/DL BUN (test code = 2208) 12 MG/DL CREATININE (test code = 2214) 0.54 MG/DL eGFR AMER. (test code 139 ML/MIN/1.73 = 50861) eGFR NON- AMER. (test 120 ML/MIN/1.73 code = 67102) CALC BUN/CREAT (test code = 22 RATIO [...] (test code = 2219) 22 U/L HEMOGLOBIN [id number] 00:00:00 Test Item Value Reference Range Interpretation Comments HEMOGLOBIN A1c (test code = 45135) 7.7 % LIPID [id number] 00:00:00 Test Item Value Reference Range Interpretation Comments CHOLESTEROL (test code = 2210) 243 MG/DL TRIGLYCERIDES (test code = 2232) 1140 MG/DL HDL CHOLESTEROL (test code = 31 MG/DL 2220) CALC LDL CHOL (test code = 2237) NOTE MG/DL RISK RATIO LDL/HDL (test code = (NOTE) RATIO 2238) LIPID [id number] 00:00:00 Test Item Value Reference Range Interpretation Comments CHOLESTEROL (test code = 2210) 243 MG/DL TRIGLYCERIDES (test code = 2232) 1140 MG/DL HDL CHOLESTEROL (test code = 31 MG/DL 2220) CALC LDL CHOL (test code = 2237) NOTE MG/DL RISK RATIO LDL/HDL (test code = (NOTE) RATIO 2238) HEMOGLOBIN [id number] 00:00:00 Test Item Value Reference Range Interpretation Comments HEMOGLOBIN A1c (test code = 40985) 7.7 % CBC W/AUTO [id number] 00:00:00 Test Item Value Reference Range Interpretation [...] code = 1015) 229 K/UL CBC W/AUTO [id number] 00:00:00 Test Item Value Reference Range Interpretation [...] code = 1015) 229 K/UL CBC W/AUTO [id number] 00:00:00 Test Item Value Reference Range Interpretation [...] (test code = 1015) 229 K/UL HEMOGLOBIN [id number] 00:00:00 Test Item Value Reference Range Interpretation Comments HEMOGLOBIN A1c (test code = 48914) 7.7 % HEMOGLOBIN [id number] 00:00:00 Test Item Value Reference Range Interpretation Comments HEMOGLOBIN A1c (test code = 70203) 7.7 % HEMOGLOBIN [id number] 00:00:00 Test Item Value Reference Range Interpretation Comments HEMOGLOBIN A1c (test code = 52991) 7.7 % COMPREHENSIVE METABOLIC [id number] 00:00:00 Test Item Value Reference Range Interpretation Comments GLUCOSE (test code = 2217) 154 MG/DL BUN (test code = 2208) 12 MG/DL CREATININE (test code = 2214) 0.54 MG/DL eGFR AMER. (test code 139 ML/MIN/1.73 = 36040) eGFR NON- AMER. (test 120 ML/MIN/1.73 code = 79939) CALC BUN/CREAT (test code = 22 RATIO [...] code = 2219) 22 U/L COMPREHENSIVE METABOLIC [id number] 00:00:00 Test Item Value Reference Range Interpretation Comments GLUCOSE (test code = 2217) 154 MG/DL BUN (test code = 2208) 12 MG/DL CREATININE (test code = 2214) 0.54 MG/DL eGFR AMER. (test code 139 ML/MIN/1.73 = 07428) eGFR NON- AMER. (test 120 ML/MIN/1.73 code = 01914) CALC BUN/CREAT (test code = 22 RATIO [...] (test code = 2219) 22 U/L LIPID [id number] 00:00:00 Test Item Value Reference Range Interpretation Comments CHOLESTEROL (test code = 2210) 243 MG/DL TRIGLYCERIDES (test code = 2232) 1140 MG/DL HDL CHOLESTEROL (test code = 31 MG/DL 2219) CALC LDL CHOL (test code = 2237) NOTE MG/DL RISK RATIO LDL/HDL (test code = (NOTE) RATIO 2238) LIPID [id number] 00:00:00 Test Item Value Reference Range Interpretation Comments CHOLESTEROL (test code = 2210) 243 MG/DL TRIGLYCERIDES (test code = 2232) 1140 MG/DL HDL CHOLESTEROL (test code = 31 MG/DL 2220) CALC LDL CHOL (test code = 2237) NOTE MG/DL RISK RATIO LDL/HDL (test code = (NOTE) RATIO 2238) CBC W/AUTO [id number] 00:00:00 Test Item Value Reference Range Interpretation [...] code = 1015) 229 K/UL CBC W/AUTO [id number] 00:00:00 Test Item Value Reference Range Interpretation [...] code = 1015) 229 K/UL CBC W/AUTO [id number] 00:00:00 Test Item Value Reference Range Interpretation [...] (test code = 1015) 229 K/UL HEMOGLOBIN [id number] 00:00:00 Test Item Value Reference Range Interpretation Comments HEMOGLOBIN A1c (test code = 71431) 7.7 % HEMOGLOBIN [id number] 00:00:00 Test Item Value Reference Range Interpretation Comments HEMOGLOBIN A1c (test code = 35837) 7.7 % HEMOGLOBIN [id number] 00:00:00 Test Item Value Reference Range Interpretation Comments HEMOGLOBIN A1c (test code = 95336) 7.7 % COMPREHENSIVE METABOLIC [id number] 00:00:00 Test Item Value Reference Range Interpretation Comments GLUCOSE (test code = 2217) 154 MG/DL BUN (test code = 2208) 12 MG/DL CREATININE (test code = 2214) 0.54 MG/DL eGFR AMER. (test code 139 ML/MIN/1.73 = 89997) eGFR NON- AMER. (test 120 ML/MIN/1.73 code = 48726) CALC BUN/CREAT (test code = 22 RATIO [...] code = 2219) 22 U/L COMPREHENSIVE METABOLIC [id number] 00:00:00 Test Item Value Reference Range Interpretation Comments GLUCOSE (test code = 2217) 154 MG/DL BUN (test code = 2208) 12 MG/DL CREATININE (test code = 2214) 0.54 MG/DL eGFR AMER. (test code 139 ML/MIN/1.73 = 22489) eGFR NON- AMER. (test 120 ML/MIN/1.73 code = 67112) CALC BUN/CREAT (test code = 22 RATIO [...] (test code = 2219) 22 U/L LIPID [id number] 00:00:00 Test Item Value Reference Range Interpretation Comments CHOLESTEROL (test code = 2210) 243 MG/DL TRIGLYCERIDES (test code = 2232) 1140 MG/DL HDL CHOLESTEROL (test code = 31 MG/DL 2220) CALC LDL CHOL (test code = 2237) NOTE MG/DL RISK RATIO LDL/HDL (test code = (NOTE) RATIO 2238) LIPID [id number] 00:00:00 Test Item Value Reference Range Interpretation Comments CHOLESTEROL (test code = 2210) 243 MG/DL TRIGLYCERIDES (test code = 2232) 1140 MG/DL HDL CHOLESTEROL (test code = 31 MG/DL 2220) CALC LDL CHOL (test code = 2237) NOTE MG/DL RISK RATIO LDL/HDL (test code = (NOTE) RATIO 2238) CBC W/AUTO [id number] 00:00:00 Test Item Value Reference Range Interpretation [...] code = 1015) 229 K/UL CBC W/AUTO [id number] 00:00:00 Test Item Value Reference Range Interpretation [...] code = 1015) 229 K/UL CBC W/AUTO [id number] 00:00:00 Test Item Value Reference Range Interpretation [...] (test code = 1015) 229 K/UL HEMOGLOBIN [id number] 00:00:00 Test Item Value Reference Range Interpretation Comments HEMOGLOBIN A1c (test code = 87502) 7.7 % HEMOGLOBIN [id number] 00:00:00 Test Item Value Reference Range Interpretation Comments HEMOGLOBIN A1c (test code = 04392) 7.7 % HEMOGLOBIN [id number] 00:00:00 Test Item Value Reference Range Interpretation Comments HEMOGLOBIN A1c (test code = 50083) 7.7 % [id number] 00:00:00 Test Item Value Reference Range Interpretation Comments MAGNESIUM (test code = 2226) 1.4 MG/DL [id number] 00:00:00 Test Item Value Reference Range Interpretation Comments MAGNESIUM (test code = 2226) 1.4 MG/DL [id number] 00:00:00 Test Item Value Reference Range Interpretation Comments MAGNESIUM (test code = 2226) 1.4 MG/DL COMPREHENSIVE METABOLIC [id number] 00:00:00 Test Item Value Reference Range Interpretation Comments GLUCOSE (test code = 2217) 234 MG/DL BUN (test code = 2208) 17 MG/DL CREATININE (test code = 2214) 0.54 MG/DL eGFR AMER. (test code 139 ML/MIN/1.73 = 09155) eGFR NON- AMER. (test 120 ML/MIN/1.73 code = 45189) CALC BUN/CREAT (test code = 31 RATIO [...] code = 2219) 22 U/L COMPREHENSIVE METABOLIC [id number] 00:00:00 Test Item Value Reference Range Interpretation Comments GLUCOSE (test code = 2217) 234 MG/DL BUN (test code = 2208) 17 MG/DL CREATININE (test code = 2214) 0.54 MG/DL eGFR AMER. (test code 139 ML/MIN/1.73 = 33342) eGFR NON- AMER. (test 120 ML/MIN/1.73 code = 83448) CALC BUN/CREAT (test code = 31 RATIO [...] (test code = 2219) 22 U/L HEMOGLOBIN [id number] 00:00:00 Test Item Value Reference Range Interpretation Comments HEMOGLOBIN A1c (test code = 87382) 7.7 % HEMOGLOBIN [id number] 00:00:00 Test Item Value Reference Range Interpretation Comments HEMOGLOBIN A1c (test code = 65100) 7.7 % HEMOGLOBIN [id number] 00:00:00 Test Item Value Reference Range Interpretation Comments HEMOGLOBIN A1c (test code = 25494) 7.7 % CBC W/AUTO [id number] 00:00:00 Test Item Value Reference Range Interpretation [...] code = 1015) 224 K/UL CBC W/AUTO [id number] 00:00:00 Test Item Value Reference Range Interpretation [...] code = 1015) 224 K/UL CBC W/AUTO [id number] 00:00:00 Test Item Value Reference Range Interpretation [...] TSH (test code = 2821) <0.10 UIU/ML [id number] 00:00:00 Test Item Value Reference Range Interpretation Comments MAGNESIUM (test code = 2226) 1.4 MG/DL [id number] 00:00:00 Test Item Value Reference Range Interpretation Comments MAGNESIUM (test code = 2226) 1.4 MG/DL [id number] 00:00:00 Test Item Value Reference Range Interpretation Comments MAGNESIUM (test code = 2226) 1.4 MG/DL COMPREHENSIVE METABOLIC [id number] 00:00:00 Test Item Value Reference Range Interpretation Comments GLUCOSE (test code = 2217) 234 MG/DL BUN (test code = 2208) 17 MG/DL CREATININE (test code = 2214) 0.54 MG/DL eGFR AMER. (test code 139 ML/MIN/1.73 = 49688) eGFR NON- AMER. (test 120 ML/MIN/1.73 code = 26010) CALC BUN/CREAT (test code = 31 RATIO [...] code = 2219) 22 U/L COMPREHENSIVE METABOLIC [id number] 00:00:00 Test Item Value Reference Range Interpretation Comments GLUCOSE (test code = 2217) 234 MG/DL BUN (test code = 2208) 17 MG/DL CREATININE (test code = 2214) 0.54 MG/DL eGFR AMER. (test code 139 ML/MIN/1.73 = 80735) eGFR NON- AMER. (test 120 ML/MIN/1.73 code = 66666) CALC BUN/CREAT (test code = 31 RATIO [...] (test code = 2219) 22 U/L HEMOGLOBIN [id number] 00:00:00 Test Item Value Reference Range Interpretation Comments HEMOGLOBIN A1c (test code = 89498) 7.7 % HEMOGLOBIN [id number] 00:00:00 Test Item Value Reference Range Interpretation Comments HEMOGLOBIN A1c (test code = 56462) 7.7 % HEMOGLOBIN [id number] 00:00:00 Test Item Value Reference Range Interpretation Comments HEMOGLOBIN A1c (test code = 00257) 7.7 % CBC W/AUTO [id number] 00:00:00 Test Item Value Reference Range Interpretation [...] code = 1015) 224 K/UL CBC W/AUTO [id number] 00:00:00 Test Item Value Reference Range Interpretation [...] code = 1015) 224 K/UL CBC W/AUTO [id number] 00:00:00 Test Item Value Reference Range Interpretation [...] TSH (test code = 2821) <0.10 UIU/ML [id number] 00:00:00 Test Item Value Reference Range Interpretation Comments MAGNESIUM (test code = 2226) 1.4 MG/DL [id number] 00:00:00 Test Item Value Reference Range Interpretation Comments MAGNESIUM (test code = 2226) 1.4 MG/DL [id number] 00:00:00 Test Item Value Reference Range Interpretation Comments MAGNESIUM (test code = 2226) 1.4 MG/DL COMPREHENSIVE METABOLIC [id number] 00:00:00 Test Item Value Reference Range Interpretation Comments GLUCOSE (test code = 2217) 234 MG/DL BUN (test code = 2208) 17 MG/DL CREATININE (test code = 2214) 0.54 MG/DL eGFR AMER. (test code 139 ML/MIN/1.73 = 88589) eGFR NON- AMER. (test 120 ML/MIN/1.73 code = 42815) CALC BUN/CREAT (test code = 31 RATIO [...] code = 2219) 22 U/L COMPREHENSIVE METABOLIC [id number] 00:00:00 Test Item Value Reference Range Interpretation Comments GLUCOSE (test code = 2217) 234 MG/DL BUN (test code = 2208) 17 MG/DL CREATININE (test code = 2214) 0.54 MG/DL eGFR AMER. (test code 139 ML/MIN/1.73 = 72213) eGFR NON- AMER. (test 120 ML/MIN/1.73 code = 25391) CALC BUN/CREAT (test code = 31 RATIO [...] (test code = 2219) 22 U/L HEMOGLOBIN [id number] 00:00:00 Test Item Value Reference Range Interpretation Comments HEMOGLOBIN A1c (test code = 04471) 7.7 % HEMOGLOBIN [id number] 00:00:00 Test Item Value Reference Range Interpretation Comments HEMOGLOBIN A1c (test code = 92920) 7.7 % HEMOGLOBIN [id number] 00:00:00 Test Item Value Reference Range Interpretation Comments HEMOGLOBIN A1c (test code = 49335) 7.7 % CBC W/AUTO [id number] 00:00:00 Test Item Value Reference Range Interpretation [...] code = 1015) 224 K/UL CBC W/AUTO [id number] 00:00:00 Test Item Value Reference Range Interpretation [...] code = 1015) 224 K/UL CBC W/AUTO [id number] 00:00:00 Test Item Value Reference Range Interpretation [...] TSH (test code = 2821) <0.10 UIU/ML [id number] 00:00:00 Test Item Value Reference Range Interpretation Comments MAGNESIUM (test code = 2226) 1.4 MG/DL [id number] 00:00:00 Test Item Value Reference Range Interpretation Comments MAGNESIUM (test code = 2226) 1.4 MG/DL [id number] 00:00:00 Test Item Value Reference Range Interpretation Comments MAGNESIUM (test code = 2226) 1.4 MG/DL COMPREHENSIVE METABOLIC [id number] 00:00:00 Test Item Value Reference Range Interpretation Comments GLUCOSE (test code = 2217) 234 MG/DL BUN (test code = 2208) 17 MG/DL CREATININE (test code = 2214) 0.54 MG/DL eGFR AMER. (test code 139 ML/MIN/1.73 = 28292) eGFR NON- AMER. (test 120 ML/MIN/1.73 code = 56303) CALC BUN/CREAT (test code = 31 RATIO [...] code = 2219) 22 U/L COMPREHENSIVE METABOLIC [id number] 00:00:00 Test Item Value Reference Range Interpretation Comments GLUCOSE (test code = 2217) 234 MG/DL BUN (test code = 2208) 17 MG/DL CREATININE (test code = 2214) 0.54 MG/DL eGFR AMER. (test code 139 ML/MIN/1.73 = 31496) eGFR NON- AMER. (test 120 ML/MIN/1.73 code = 04755) CALC BUN/CREAT (test code = 31 RATIO [...] (test code = 2219) 22 U/L HEMOGLOBIN [id number] 00:00:00 Test Item Value Reference Range Interpretation Comments HEMOGLOBIN A1c (test code = 30262) 7.7 % HEMOGLOBIN [id number] 00:00:00 Test Item Value Reference Range Interpretation Comments HEMOGLOBIN A1c (test code = 50458) 7.7 % HEMOGLOBIN [id number] 00:00:00 Test Item Value Reference Range Interpretation Comments HEMOGLOBIN A1c (test code = 23445) 7.7 % CBC W/AUTO [id number] 00:00:00 Test Item Value Reference Range Interpretation [...] code = 1015) 224 K/UL CBC W/AUTO [id number] 00:00:00 Test Item Value Reference Range Interpretation [...] code = 1015) 224 K/UL CBC W/AUTO [id number] 00:00:00 Test Item Value Reference Range Interpretation [...] TSH (test code = 2821) <0.10 UIU/ML [id number] 00:00:00 Test Item Value Reference Range Interpretation Comments MAGNESIUM (test code = 2226) 1.4 MG/DL [id number] 00:00:00 Test Item Value Reference Range Interpretation Comments MAGNESIUM (test code = 2226) 1.4 MG/DL [id number] 00:00:00 Test Item Value Reference Range Interpretation Comments MAGNESIUM (test code = 2226) 1.4 MG/DL COMPREHENSIVE METABOLIC [id number] 00:00:00 Test Item Value Reference Range Interpretation Comments GLUCOSE (test code = 2217) 234 MG/DL BUN (test code = 2208) 17 MG/DL CREATININE (test code = 2214) 0.54 MG/DL eGFR AMER. (test code 139 ML/MIN/1.73 = 95978) eGFR NON- AMER. (test 120 ML/MIN/1.73 code = 76263) CALC BUN/CREAT (test code = 31 RATIO [...] code = 2219) 22 U/L COMPREHENSIVE METABOLIC [id number] 00:00:00 Test Item Value Reference Range Interpretation Comments GLUCOSE (test code = 2217) 234 MG/DL BUN (test code = 2208) 17 MG/DL CREATININE (test code = 2214) 0.54 MG/DL eGFR AMER. (test code 139 ML/MIN/1.73 = 48256) eGFR NON- AMER. (test 120 ML/MIN/1.73 code = 82218) CALC BUN/CREAT (test code = 31 RATIO [...] (test code = 2219) 22 U/L HEMOGLOBIN [id number] 00:00:00 Test Item Value Reference Range Interpretation Comments HEMOGLOBIN A1c (test code = 24573) 7.7 % HEMOGLOBIN [id number] 00:00:00 Test Item Value Reference Range Interpretation Comments HEMOGLOBIN A1c (test code = 78074) 7.7 % HEMOGLOBIN [id number] 00:00:00 Test Item Value Reference Range Interpretation Comments HEMOGLOBIN A1c (test code = 98291) 7.7 % CBC W/AUTO [id number] 00:00:00 Test Item Value Reference Range Interpretation [...] code = 1015) 224 K/UL CBC W/AUTO [id number] 00:00:00 Test Item Value Reference Range Interpretation [...] code = 1015) 224 K/UL CBC W/AUTO [id number] 00:00:00 Test Item Value Reference Range Interpretation [...] TSH (test code = 2821) <0.10 UIU/ML [id number] 00:00:00 Test Item Value Reference Range Interpretation Comments MAGNESIUM (test code = 2226) 1.4 MG/DL [id number] 00:00:00 Test Item Value Reference Range Interpretation Comments MAGNESIUM (test code = 2226) 1.4 MG/DL [id number] 00:00:00 Test Item Value Reference Range Interpretation Comments MAGNESIUM (test code = 2226) 1.4 MG/DL COMPREHENSIVE METABOLIC [id number] 00:00:00 Test Item Value Reference Range Interpretation Comments GLUCOSE (test code = 2217) 234 MG/DL BUN (test code = 2208) 17 MG/DL CREATININE (test code = 2214) 0.54 MG/DL eGFR AMER. (test code 139 ML/MIN/1.73 = 30852) eGFR NON- AMER. (test 120 ML/MIN/1.73 code = 87416) CALC BUN/CREAT (test code = 31 RATIO [...] code = 2219) 22 U/L COMPREHENSIVE METABOLIC [id number] 00:00:00 Test Item Value Reference Range Interpretation Comments GLUCOSE (test code = 2217) 234 MG/DL BUN (test code = 2208) 17 MG/DL CREATININE (test code = 2214) 0.54 MG/DL eGFR AMER. (test code 139 ML/MIN/1.73 = 03488) eGFR NON- AMER. (test 120 ML/MIN/1.73 code = 58119) CALC BUN/CREAT (test code = 31 RATIO [...] (test code = 2219) 22 U/L HEMOGLOBIN [id number] 00:00:00 Test Item Value Reference Range Interpretation Comments HEMOGLOBIN A1c (test code = 46273) 7.7 % HEMOGLOBIN [id number] 00:00:00 Test Item Value Reference Range Interpretation Comments HEMOGLOBIN A1c (test code = 93101) 7.7 % HEMOGLOBIN [id number] 00:00:00 Test Item Value Reference Range Interpretation Comments HEMOGLOBIN A1c (test code = 97198) 7.7 % CBC W/AUTO [id number] 00:00:00 Test Item Value Reference Range Interpretation [...] code = 1015) 224 K/UL CBC W/AUTO [id number] 00:00:00 Test Item Value Reference Range Interpretation [...] code = 1015) 224 K/UL CBC W/AUTO [id number] 00:00:00 Test Item Value Reference Range Interpretation [...] TSH (test code = 2821) <0.10 UIU/ML [id number] 00:00:00 Test Item Value Reference Range Interpretation Comments MAGNESIUM (test code = 2226) 1.4 MG/DL [id number] 00:00:00 Test Item Value Reference Range Interpretation Comments MAGNESIUM (test code = 2226) 1.4 MG/DL [id number] 00:00:00 Test Item Value Reference Range Interpretation Comments MAGNESIUM (test code = 2226) 1.4 MG/DL [id number] 00:00:00 Test Item Value Reference Range Interpretation Comments MAGNESIUM (test code = 2226) 1.4 MG/DL COMPREHENSIVE METABOLIC [id number] 00:00:00 Test Item Value Reference Range Interpretation Comments GLUCOSE (test code = 2217) 234 MG/DL BUN (test code = 2208) 17 MG/DL CREATININE (test code = 2214) 0.54 MG/DL eGFR AMER. (test code 139 ML/MIN/1.73 = 16385) eGFR NON- AMER. (test 120 ML/MIN/1.73 code = 98887) CALC BUN/CREAT (test code = 31 RATIO [...] code = 2219) 22 U/L COMPREHENSIVE METABOLIC [id number] 00:00:00 Test Item Value Reference Range Interpretation Comments GLUCOSE (test code = 2217) 234 MG/DL BUN (test code = 2208) 17 MG/DL CREATININE (test code = 2214) 0.54 MG/DL eGFR AMER. (test code 139 ML/MIN/1.73 = 01710) eGFR NON- AMER. (test 120 ML/MIN/1.73 code = 29504) CALC BUN/CREAT (test code = 31 RATIO [...] (test code = 2219) 22 U/L HEMOGLOBIN [id number] 00:00:00 Test Item Value Reference Range Interpretation Comments HEMOGLOBIN A1c (test code = 46146) 7.7 % HEMOGLOBIN [id number] 00:00:00 Test Item Value Reference Range Interpretation Comments HEMOGLOBIN A1c (test code = 90117) 7.7 % HEMOGLOBIN [id number] 00:00:00 Test Item Value Reference Range Interpretation Comments HEMOGLOBIN A1c (test code = 23623) 7.7 % [id number] 00:00:00 Test Item Value Reference Range Interpretation Comments MAGNESIUM (test code = 2226) 1.4 MG/DL CBC W/AUTO [id number] 00:00:00 Test Item Value Reference Range Interpretation [...] code = 1015) 224 K/UL CBC W/AUTO [id number] 00:00:00 Test Item Value Reference Range Interpretation [...] code = 1015) 224 K/UL CBC W/AUTO [id number] 00:00:00 Test Item Value Reference Range Interpretation [...] code = 2821) <0.10 UIU/ML COMPREHENSIVE METABOLIC [id number] 00:00:00 Test Item Value Reference Range Interpretation Comments GLUCOSE (test code = 2217) 234 MG/DL BUN (test code = 2208) 17 MG/DL CREATININE (test code = 2214) 0.54 MG/DL eGFR AMER. (test code 139 ML/MIN/1.73 = 55556) eGFR NON- AMER. (test 120 ML/MIN/1.73 code = 63998) CALC BUN/CREAT (test code = 31 RATIO [...] (test code = 2219) 22 U/L HEMOGLOBIN [id number] 00:00:00 Test Item Value Reference Range Interpretation Comments HEMOGLOBIN A1c (test code = 45730) 7.7 % HEMOGLOBIN [id number] 00:00:00 Test Item Value Reference Range Interpretation Comments HEMOGLOBIN A1c (test code = 13847) 7.7 % [id number] 00:00:00 Test Item Value Reference Range Interpretation Comments MAGNESIUM (test code = 2226) 1.4 MG/DL [id number] 00:00:00 Test Item Value Reference Range Interpretation Comments MAGNESIUM (test code = 2226) 1.4 MG/DL [id number] 00:00:00 Test Item Value Reference Range Interpretation Comments MAGNESIUM (test code = 2226) 1.4 MG/DL CBC W/AUTO [id number] 00:00:00 Test Item Value Reference Range Interpretation [...] code = 1015) 224 K/UL COMPREHENSIVE METABOLIC [id number] 00:00:00 Test Item Value Reference Range Interpretation Comments GLUCOSE (test code = 2217) 234 MG/DL BUN (test code = 2208) 17 MG/DL CREATININE (test code = 2214) 0.54 MG/DL eGFR AMER. (test code 139 ML/MIN/1.73 = 70745) eGFR NON- AMER. (test 120 ML/MIN/1.73 code = 17106) CALC BUN/CREAT (test code = 31 RATIO [...] code = 2219) 22 U/L CBC W/AUTO [id number] 00:00:00 Test Item Value Reference Range Interpretation [...] code = 1015) 224 K/UL COMPREHENSIVE METABOLIC [id number] 00:00:00 Test Item Value Reference Range Interpretation Comments GLUCOSE (test code = 2217) 234 MG/DL BUN (test code = 2208) 17 MG/DL CREATININE (test code = 2214) 0.54 MG/DL eGFR AMER. (test code 139 ML/MIN/1.73 = 12092) eGFR NON- AMER. (test 120 ML/MIN/1.73 code = 01821) CALC BUN/CREAT (test code = 31 RATIO [...] (test code = 2219) 22 U/L HEMOGLOBIN [id number] 00:00:00 Test Item Value Reference Range Interpretation Comments HEMOGLOBIN A1c (test code = 89952) 7.7 % HEMOGLOBIN [id number] 00:00:00 Test Item Value Reference Range Interpretation Comments HEMOGLOBIN A1c (test code = 83903) 7.7 % HEMOGLOBIN [id number] 00:00:00 Test Item Value Reference Range Interpretation Comments HEMOGLOBIN A1c (test code = 87389) 7.7 % THYROID II PROFILE (T3U, T4, T7, TSH)[id number] 00:00:00 Test Item Value Reference Range Interpretation Comments T3 UPTAKE (test code = 2817) 24.7 % T4 (THYROXINE) (test code = 3.7 UG/DL 2819) CALCULATED T7 (FTI) (test code = 0.91 2820) TSH (test code = 2821) <0.10 UIU/ML CBC W/AUTO [id number] 00:00:00 Test Item Value Reference Range Interpretation [...] code = 1015) 224 K/UL CBC W/AUTO [id number] 00:00:00 Test Item Value Reference Range Interpretation [...] code = 1015) 224 K/UL CBC W/AUTO [id number] 00:00:00 Test Item Value Reference Range Interpretation [...] TSH (test code = 2821) <0.10 UIU/ML [id number] 00:00:00 Test Item Value Reference Range Interpretation Comments MAGNESIUM (test code = 2226) 1.4 MG/DL [id number] 00:00:00 Test Item Value Reference Range Interpretation Comments MAGNESIUM (test code = 2226) 1.4 MG/DL [id number] 00:00:00 Test Item Value Reference Range Interpretation Comments MAGNESIUM (test code = 2226) 1.4 MG/DL COMPREHENSIVE METABOLIC [id number] 00:00:00 Test Item Value Reference Range Interpretation Comments GLUCOSE (test code = 2217) 234 MG/DL BUN (test code = 2208) 17 MG/DL CREATININE (test code = 2214) 0.54 MG/DL eGFR AMER. (test code 139 ML/MIN/1.73 = 34622) eGFR NON- AMER. (test 120 ML/MIN/1.73 code = 95666) CALC BUN/CREAT (test code = 31 RATIO [...] code = 2219) 22 U/L COMPREHENSIVE METABOLIC [id number] 00:00:00 Test Item Value Reference Range Interpretation Comments GLUCOSE (test code = 2217) 234 MG/DL BUN (test code = 2208) 17 MG/DL CREATININE (test code = 2214) 0.54 MG/DL eGFR AMER. (test code 139 ML/MIN/1.73 = 54135) eGFR NON- AMER. (test 120 ML/MIN/1.73 code = 27211) CALC BUN/CREAT (test code = 31 RATIO [...] (test code = 2219) 22 U/L HEMOGLOBIN [id number] 00:00:00 Test Item Value Reference Range Interpretation Comments HEMOGLOBIN A1c (test code = 54431) 7.7 % HEMOGLOBIN [id number] 00:00:00 Test Item Value Reference Range Interpretation Comments HEMOGLOBIN A1c (test code = 05483) 7.7 % HEMOGLOBIN [id number] 00:00:00 Test Item Value Reference Range Interpretation Comments HEMOGLOBIN A1c (test code = 58630) 7.7 % CBC W/AUTO [id number] 00:00:00 Test Item Value Reference Range Interpretation [...] code = 1015) 224 K/UL CBC W/AUTO [id number] 00:00:00 Test Item Value Reference Range Interpretation [...] code = 1015) 224 K/UL CBC W/AUTO [id number] 00:00:00 Test Item Value Reference Range Interpretation [...] TSH (test code = 2821) <0.10 UIU/ML [id number] 00:00:00 Test Item Value Reference Range Interpretation Comments MAGNESIUM (test code = 2226) 1.4 MG/DL [id number] 00:00:00 Test Item Value Reference Range Interpretation Comments MAGNESIUM (test code = 2226) 1.4 MG/DL [id number] 00:00:00 Test Item Value Reference Range Interpretation Comments MAGNESIUM (test code = 2226) 1.4 MG/DL COMPREHENSIVE METABOLIC [id number] 00:00:00 Test Item Value Reference Range Interpretation Comments GLUCOSE (test code = 2217) 234 MG/DL BUN (test code = 2208) 17 MG/DL CREATININE (test code = 2214) 0.54 MG/DL eGFR AMER. (test code 139 ML/MIN/1.73 = 94362) eGFR NON- AMER. (test 120 ML/MIN/1.73 code = 94762) CALC BUN/CREAT (test code = 31 RATIO [...] code = 2219) 22 U/L COMPREHENSIVE METABOLIC [id number] 00:00:00 Test Item Value Reference Range Interpretation Comments GLUCOSE (test code = 221) 234 MG/DL BUN (test code = 8) 17 MG/DL CREATININE (test code = 2214) 0.54 MG/DL eGFR AMER. (test code 139 ML/MIN/1.73 = 15016) eGFR NON- AMER. (test 120 ML/MIN/1.73 code = 36166) CALC BUN/CREAT (test code = 31 RATIO [...] (test code = 2219) 22 U/L HEMOGLOBIN [id number] 00:00:00 Test Item Value Reference Range Interpretation Comments HEMOGLOBIN A1c (test code = 15219) 7.7 % HEMOGLOBIN [id number] 00:00:00 Test Item Value Reference Range Interpretation Comments HEMOGLOBIN A1c (test code = 14401) 7.7 % HEMOGLOBIN [id number] 00:00:00 Test Item Value Reference Range Interpretation Comments HEMOGLOBIN A1c (test code = 82308) 7.7 % CBC W/AUTO [id number] 00:00:00 Test Item Value Reference Range Interpretation [...] code = 1015) 224 K/UL CBC W/AUTO [id number] 00:00:00 Test Item Value Reference Range Interpretation [...] code = 1015) 224 K/UL CBC W/AUTO [id number] 00:00:00 Test Item Value Reference Range Interpretation [...] <0.10 UIU/ML MARKO (ANTI-NUCLEAR AB) WITH REFLEX [id number] 00:00:00 Test Item Value Reference Range Interpretation Comments ANTI-NUCLEAR ANTIBODIES (test code = NEGATIVE 3506) MARKO (ANTI-NUCLEAR AB) WITH REFLEX [id number] 00:00:00 Test Item Value Reference Range Interpretation Comments ANTI-NUCLEAR ANTIBODIES (test code = NEGATIVE 3506) DHEA [id number] 00:00:00 Test Item Value Reference Range Interpretation Comments DHEA SULFATE (test code = 4225) 77 UG/DL DHEA [id number] 00:00:00 Test Item Value Reference Range Interpretation Comments DHEA SULFATE (test code = 4225) 77 UG/DL MARKO (ANTI-NUCLEAR AB) WITH REFLEX [id number] 00:00:00 Test Item Value Reference Range Interpretation Comments ANTI-NUCLEAR ANTIBODIES (test code = NEGATIVE 3506) MARKO (ANTI-NUCLEAR AB) WITH REFLEX [id number] 00:00:00 Test Item Value Reference Range Interpretation Comments ANTI-NUCLEAR ANTIBODIES (test code = NEGATIVE 3506) DHEA [id number] 00:00:00 Test Item Value Reference Range Interpretation Comments DHEA SULFATE (test code = 4225) 77 UG/DL DHEA [id number] 00:00:00 Test Item Value Reference Range Interpretation Comments DHEA SULFATE (test code = 4225) 77 UG/DL MARKO (ANTI-NUCLEAR AB) WITH REFLEX [id number] 00:00:00 Test Item Value Reference Range Interpretation Comments ANTI-NUCLEAR ANTIBODIES (test code = NEGATIVE 3506) MARKO (ANTI-NUCLEAR AB) WITH REFLEX [id number] 00:00:00 Test Item Value Reference Range Interpretation Comments ANTI-NUCLEAR ANTIBODIES (test code = NEGATIVE 3506) DHEA [id number] 00:00:00 Test Item Value Reference Range Interpretation Comments DHEA SULFATE (test code = 4225) 77 UG/DL DHEA [id number] 00:00:00 Test Item Value Reference Range Interpretation Comments DHEA SULFATE (test code = 4225) 77 UG/DL MARKO (ANTI-NUCLEAR AB) WITH REFLEX [id number] 00:00:00 Test Item Value Reference Range Interpretation Comments ANTI-NUCLEAR ANTIBODIES (test code = NEGATIVE 3506) MARKO (ANTI-NUCLEAR AB) WITH REFLEX [id number] 00:00:00 Test Item Value Reference Range Interpretation Comments ANTI-NUCLEAR ANTIBODIES (test code = NEGATIVE 3506) DHEA [id number] 00:00:00 Test Item Value Reference Range Interpretation Comments DHEA SULFATE (test code = 4225) 77 UG/DL DHEA [id number] 00:00:00 Test Item Value Reference Range Interpretation Comments DHEA SULFATE (test code = 4225) 77 UG/DL MARKO (ANTI-NUCLEAR AB) WITH REFLEX [id number] 00:00:00 Test Item Value Reference Range Interpretation Comments ANTI-NUCLEAR ANTIBODIES (test code = NEGATIVE 3506) MARKO (ANTI-NUCLEAR AB) WITH REFLEX [id number] 00:00:00 Test Item Value Reference Range Interpretation Comments ANTI-NUCLEAR ANTIBODIES (test code = NEGATIVE 3506) DHEA [id number] 00:00:00 Test Item Value Reference Range Interpretation Comments DHEA SULFATE (test code = 4225) 77 UG/DL DHEA [id number] 00:00:00 Test Item Value Reference Range Interpretation Comments DHEA SULFATE (test code = 4225) 77 UG/DL MARKO (ANTI-NUCLEAR AB) WITH REFLEX [id number] 00:00:00 Test Item Value Reference Range Interpretation Comments ANTI-NUCLEAR ANTIBODIES (test code = NEGATIVE 3506) MARKO (ANTI-NUCLEAR AB) WITH REFLEX [id number] 00:00:00 Test Item Value Reference Range Interpretation Comments ANTI-NUCLEAR ANTIBODIES (test code = NEGATIVE 3506) DHEA [id number] 00:00:00 Test Item Value Reference Range Interpretation Comments DHEA SULFATE (test code = 4225) 77 UG/DL DHEA [id number] 00:00:00 Test Item Value Reference Range Interpretation Comments DHEA SULFATE (test code = 4225) 77 UG/DL MARKO (ANTI-NUCLEAR AB) WITH REFLEX [id number] 00:00:00 Test Item Value Reference Range Interpretation Comments ANTI-NUCLEAR ANTIBODIES (test code = NEGATIVE 3506) MARKO (ANTI-NUCLEAR AB) WITH REFLEX [id number] 00:00:00 Test Item Value Reference Range Interpretation Comments ANTI-NUCLEAR ANTIBODIES (test code = NEGATIVE 3506) DHEA [id number] 00:00:00 Test Item Value Reference Range Interpretation Comments DHEA SULFATE (test code = 4225) 77 UG/DL DHEA [id number] 00:00:00 Test Item Value Reference Range Interpretation Comments DHEA SULFATE (test code = 4225) 77 UG/DL MARKO (ANTI-NUCLEAR AB) WITH REFLEX [id number] 00:00:00 Test Item Value Reference Range Interpretation Comments ANTI-NUCLEAR ANTIBODIES (test code = NEGATIVE 3506) MARKO (ANTI-NUCLEAR AB) WITH REFLEX [id number] 00:00:00 Test Item Value Reference Range Interpretation Comments ANTI-NUCLEAR ANTIBODIES (test code = NEGATIVE 3506) MARKO (ANTI-NUCLEAR AB) WITH REFLEX [id number] 00:00:00 Test Item Value Reference Range Interpretation Comments ANTI-NUCLEAR ANTIBODIES (test code = NEGATIVE 3506) DHEA [id number] 00:00:00 Test Item Value Reference Range Interpretation Comments DHEA SULFATE (test code = 4225) 77 UG/DL DHEA [id number] 00:00:00 Test Item Value Reference Range Interpretation Comments DHEA SULFATE (test code = 4225) 77 UG/DL DHEA [id number] 00:00:00 Test Item Value Reference Range Interpretation Comments DHEA SULFATE (test code = 4225) 77 UG/DL MARKO (ANTI-NUCLEAR AB) WITH REFLEX [id number] 00:00:00 Test Item Value Reference Range Interpretation Comments ANTI-NUCLEAR ANTIBODIES (test code = NEGATIVE 3506) MARKO (ANTI-NUCLEAR AB) WITH REFLEX [id number] 00:00:00 Test Item Value Reference Range Interpretation Comments ANTI-NUCLEAR ANTIBODIES (test code = NEGATIVE 3506) DHEA [id number] 00:00:00 Test Item Value Reference Range Interpretation Comments DHEA SULFATE (test code = 4225) 77 UG/DL DHEA [id number] 00:00:00 Test Item Value Reference Range Interpretation Comments DHEA SULFATE (test code = 4225) 77 UG/DL MARKO (ANTI-NUCLEAR AB) WITH REFLEX [id number] 00:00:00 Test Item Value Reference Range Interpretation Comments ANTI-NUCLEAR ANTIBODIES (test code = NEGATIVE 3506) MARKO (ANTI-NUCLEAR AB) WITH REFLEX [id number] 00:00:00 Test Item Value Reference Range Interpretation Comments ANTI-NUCLEAR ANTIBODIES (test code = NEGATIVE 3506) DHEA [id number] 00:00:00 Test Item Value Reference Range Interpretation Comments DHEA SULFATE (test code = 4225) 77 UG/DL DHEA [id number] 00:00:00 Test Item Value Reference Range Interpretation Comments DHEA SULFATE (test code = 4225) 77 UG/DL VITAMIN D,1,17-[id number] 00:00:00 Test Item Value Reference Range Interpretation Comments VITAMIN D,1,25-DIHYDROXY (test 11.3 PG/ML code = 4960) VITAMIN D,1,04-[id number] 00:00:00 Test Item Value Reference Range Interpretation Comments VITAMIN D,1,25-DIHYDROXY (test 11.3 PG/ML code = 4960) VITAMIN B 12 AND FOLIC [id number] 00:00:00 Test Item Value Reference Range Interpretation Comments VITAMIN B-12 (test code = 2840) 925 PG/ML FOLIC ACID (test code = 2695) >24.0 NG/ML VITAMIN B 12 AND FOLIC [id number] 00:00:00 Test Item Value Reference Range Interpretation [...] (test code = 2821) 0.4 UIU/ML LIPID [id number] 00:00:00 Test Item Value Reference Range Interpretation Comments CHOLESTEROL (test code = 2210) 172 MG/DL TRIGLYCERIDES (test code = 2232) 136 MG/DL HDL CHOLESTEROL (test code = 2220) 44 MG/DL CALC LDL CHOL (test code = 2237) 101 MG/DL RISK RATIO LDL/HDL (test code = 2.29 RATIO 2238) LIPID [id number] 00:00:00 Test Item Value Reference Range Interpretation Comments CHOLESTEROL (test code = 2210) 172 MG/DL TRIGLYCERIDES (test code = 2232) 136 MG/DL HDL CHOLESTEROL (test code = 2220) 44 MG/DL CALC LDL CHOL (test code = 2237) 101 MG/DL RISK RATIO LDL/HDL (test code = 2.29 RATIO 2238) [id number] 00:00:00 Test Item Value Reference Range Interpretation Comments TESTOSTERONE (test code = 2830) <12 NG/DL TESTOSTERONE REF RANGE (test code = (NOTE) 58568) [id number] 00:00:00 Test Item Value Reference Range Interpretation Comments TESTOSTERONE (test code = 2830) <12 NG/DL TESTOSTERONE REF RANGE (test code = (NOTE) 02535) [id number] 00:00:00 Test Item Value Reference Range Interpretation Comments PROLACTIN (test code = 2800) 5.8 NG/ML [id number] 00:00:00 Test Item Value Reference Range Interpretation Comments PROLACTIN (test code = 2800) 5.8 NG/ML FSH + LH [id number] 00:00:00 Test Item Value Reference Range Interpretation Comments FOLLICLE STIM HORMONE (test code = 8.9 MIU/ML 2700) LUTEINIZING HORMONE (test code = 6.5 MIU/ML 2776) FSH + LH [id number] 00:00:00 Test Item Value Reference Range Interpretation Comments FOLLICLE STIM HORMONE (test code = 8.9 MIU/ML 2700) LUTEINIZING HORMONE (test code = 6.5 MIU/ML 2776) VITAMIN D,1,60-[id number] 00:00:00 Test Item Value Reference Range Interpretation Comments VITAMIN D,1,25-DIHYDROXY (test 11.3 PG/ML code = 4960) VITAMIN D,1,41-[id number] 00:00:00 Test Item Value Reference Range Interpretation Comments VITAMIN D,1,25-DIHYDROXY (test 11.3 PG/ML code = 4960) VITAMIN B 12 AND FOLIC [id number] 00:00:00 Test Item Value Reference Range Interpretation Comments VITAMIN B-12 (test code = 2840) 925 PG/ML FOLIC ACID (test code = 2695) >24.0 NG/ML VITAMIN B 12 AND FOLIC [id number] 00:00:00 Test Item Value Reference Range Interpretation [...] (test code = 2821) 0.4 UIU/ML LIPID [id number] 00:00:00 Test Item Value Reference Range Interpretation Comments CHOLESTEROL (test code = 2210) 172 MG/DL TRIGLYCERIDES (test code = 2232) 136 MG/DL HDL CHOLESTEROL (test code = 2220) 44 MG/DL CALC LDL CHOL (test code = 2237) 101 MG/DL RISK RATIO LDL/HDL (test code = 2.29 RATIO 2238) LIPID [id number] 00:00:00 Test Item Value Reference Range Interpretation Comments CHOLESTEROL (test code = 2210) 172 MG/DL TRIGLYCERIDES (test code = 2232) 136 MG/DL HDL CHOLESTEROL (test code = 2220) 44 MG/DL CALC LDL CHOL (test code = 2237) 101 MG/DL RISK RATIO LDL/HDL (test code = 2.29 RATIO 2238) [id number] 00:00:00 Test Item Value Reference Range Interpretation Comments TESTOSTERONE (test code = 2830) <12 NG/DL TESTOSTERONE REF RANGE (test code = (NOTE) 48298) [id number] 00:00:00 Test Item Value Reference Range Interpretation Comments TESTOSTERONE (test code = 2830) <12 NG/DL TESTOSTERONE REF RANGE (test code = (NOTE) 57728) [id number] 00:00:00 Test Item Value Reference Range Interpretation Comments PROLACTIN (test code = 2800) 5.8 NG/ML [id number] 00:00:00 Test Item Value Reference Range Interpretation Comments PROLACTIN (test code = 2800) 5.8 NG/ML FSH + LH [id number] 00:00:00 Test Item Value Reference Range Interpretation Comments FOLLICLE STIM HORMONE (test code = 8.9 MIU/ML 2700) LUTEINIZING HORMONE (test code = 6.5 MIU/ML 2776) FSH + LH [id number] 00:00:00 Test Item Value Reference Range Interpretation Comments FOLLICLE STIM HORMONE (test code = 8.9 MIU/ML 2700) LUTEINIZING HORMONE (test code = 6.5 MIU/ML 2776) VITAMIN D,1,54-[id number] 00:00:00 Test Item Value Reference Range Interpretation Comments VITAMIN D,1,25-DIHYDROXY (test 11.3 PG/ML code = 4960) VITAMIN D,1,67-[id number] 00:00:00 Test Item Value Reference Range Interpretation Comments VITAMIN D,1,25-DIHYDROXY (test 11.3 PG/ML code = 4960) VITAMIN B 12 AND FOLIC [id number] 00:00:00 Test Item Value Reference Range Interpretation Comments VITAMIN B-12 (test code = 2840) 925 PG/ML FOLIC ACID (test code = 2695) >24.0 NG/ML VITAMIN B 12 AND FOLIC [id number] 00:00:00 Test Item Value Reference Range Interpretation [...] (test code = 2821) 0.4 UIU/ML LIPID [id number] 00:00:00 Test Item Value Reference Range Interpretation Comments CHOLESTEROL (test code = 2210) 172 MG/DL TRIGLYCERIDES (test code = 2232) 136 MG/DL HDL CHOLESTEROL (test code = 2220) 44 MG/DL CALC LDL CHOL (test code = 2237) 101 MG/DL RISK RATIO LDL/HDL (test code = 2.29 RATIO 2238) LIPID [id number] 00:00:00 Test Item Value Reference Range Interpretation Comments CHOLESTEROL (test code = 2210) 172 MG/DL TRIGLYCERIDES (test code = 2232) 136 MG/DL HDL CHOLESTEROL (test code = 2220) 44 MG/DL CALC LDL CHOL (test code = 2237) 101 MG/DL RISK RATIO LDL/HDL (test code = 2.29 RATIO 2238) [id number] 00:00:00 Test Item Value Reference Range Interpretation Comments TESTOSTERONE (test code = 2830) <12 NG/DL TESTOSTERONE REF RANGE (test code = (NOTE) 57344) [id number] 00:00:00 Test Item Value Reference Range Interpretation Comments TESTOSTERONE (test code = 2830) <12 NG/DL TESTOSTERONE REF RANGE (test code = (NOTE) 46744) [id number] 00:00:00 Test Item Value Reference Range Interpretation Comments PROLACTIN (test code = 2800) 5.8 NG/ML [id number] 00:00:00 Test Item Value Reference Range Interpretation Comments PROLACTIN (test code = 2800) 5.8 NG/ML FSH + LH [id number] 00:00:00 Test Item Value Reference Range Interpretation Comments FOLLICLE STIM HORMONE (test code = 8.9 MIU/ML 2700) LUTEINIZING HORMONE (test code = 6.5 MIU/ML 2776) FSH + LH [id number] 00:00:00 Test Item Value Reference Range Interpretation Comments FOLLICLE STIM HORMONE (test code = 8.9 MIU/ML 2700) LUTEINIZING HORMONE (test code = 6.5 MIU/ML 2776) VITAMIN D,1,06-[id number] 00:00:00 Test Item Value Reference Range Interpretation Comments VITAMIN D,1,25-DIHYDROXY (test 11.3 PG/ML code = 4960) VITAMIN D,1,11-[id number] 00:00:00 Test Item Value Reference Range Interpretation Comments VITAMIN D,1,25-DIHYDROXY (test 11.3 PG/ML code = 4960) VITAMIN B 12 AND FOLIC [id number] 00:00:00 Test Item Value Reference Range Interpretation Comments VITAMIN B-12 (test code = 2840) 925 PG/ML FOLIC ACID (test code = 2695) >24.0 NG/ML VITAMIN B 12 AND FOLIC [id number] 00:00:00 Test Item Value Reference Range Interpretation [...] (test code = 2821) 0.4 UIU/ML LIPID [id number] 00:00:00 Test Item Value Reference Range Interpretation Comments CHOLESTEROL (test code = 2210) 172 MG/DL TRIGLYCERIDES (test code = 2232) 136 MG/DL HDL CHOLESTEROL (test code = 2220) 44 MG/DL CALC LDL CHOL (test code = 2237) 101 MG/DL RISK RATIO LDL/HDL (test code = 2.29 RATIO 2238) LIPID [id number] 00:00:00 Test Item Value Reference Range Interpretation Comments CHOLESTEROL (test code = 2210) 172 MG/DL TRIGLYCERIDES (test code = 2232) 136 MG/DL HDL CHOLESTEROL (test code = 2220) 44 MG/DL CALC LDL CHOL (test code = 2237) 101 MG/DL RISK RATIO LDL/HDL (test code = 2.29 RATIO 2238) [id number] 00:00:00 Test Item Value Reference Range Interpretation Comments TESTOSTERONE (test code = 2830) <12 NG/DL TESTOSTERONE REF RANGE (test code = (NOTE) 59485) [id number] 00:00:00 Test Item Value Reference Range Interpretation Comments TESTOSTERONE (test code = 2830) <12 NG/DL TESTOSTERONE REF RANGE (test code = (NOTE) 63288) [id number] 00:00:00 Test Item Value Reference Range Interpretation Comments PROLACTIN (test code = 2800) 5.8 NG/ML [id number] 00:00:00 Test Item Value Reference Range Interpretation Comments PROLACTIN (test code = 2800) 5.8 NG/ML FSH + LH [id number] 00:00:00 Test Item Value Reference Range Interpretation Comments FOLLICLE STIM HORMONE (test code = 8.9 MIU/ML 2700) LUTEINIZING HORMONE (test code = 6.5 MIU/ML 2776) FSH + LH [id number] 00:00:00 Test Item Value Reference Range Interpretation Comments FOLLICLE STIM HORMONE (test code = 8.9 MIU/ML 2700) LUTEINIZING HORMONE (test code = 6.5 MIU/ML 2776) VITAMIN D,1,00-[id number] 00:00:00 Test Item Value Reference Range Interpretation Comments VITAMIN D,1,25-DIHYDROXY (test 11.3 PG/ML code = 4960) VITAMIN D,1,92-[id number] 00:00:00 Test Item Value Reference Range Interpretation Comments VITAMIN D,1,25-DIHYDROXY (test 11.3 PG/ML code = 4960) VITAMIN B 12 AND FOLIC [id number] 00:00:00 Test Item Value Reference Range Interpretation Comments VITAMIN B-12 (test code = 2840) 925 PG/ML FOLIC ACID (test code = 2695) >24.0 NG/ML VITAMIN B 12 AND FOLIC [id number] 00:00:00 Test Item Value Reference Range Interpretation Comments VITAMIN B-12 (test code = 2840) 925 PG/ML FOLIC ACID (test code = 2695) >24.0 NG/ML THYROID II PROFILE (T3U, T4, T7, TSH)[id number] 00:00:00 Test Item Value Reference Range Interpretation Comments T3 UPTAKE (test code = 2817) 31.0 % T4 (THYROXINE) (test code = 2819) 7.4 UG/DL CALCULATED T7 (FTI) (test code = 2.29 4060) TSH (test code = 2821) 0.4 UIU/ML THYROID II PROFILE (T3U, T4, T7, TSH)2016-03-22 00:00:00 Test Item Value Reference Range Interpretation Comments T3 UPTAKE (test code = 2817) 31.0 % T4 (THYROXINE) (test code = 2819) 7.4 UG/DL CALCULATED T7 (FTI) (test code = 2.29 2820) TSH (test code = 2821) 0.4 UIU/ML LIPID [id number] 00:00:00 Test Item Value Reference Range Interpretation Comments CHOLESTEROL (test code = 2210) 172 MG/DL TRIGLYCERIDES (test code = 2232) 136 MG/DL HDL CHOLESTEROL (test code = 2220) 44 MG/DL CALC LDL CHOL (test code = 2237) 101 MG/DL RISK RATIO LDL/HDL (test code = 2.29 RATIO 2238) LIPID [id number] 00:00:00 Test Item Value Reference Range Interpretation Comments CHOLESTEROL (test code = 2210) 172 MG/DL TRIGLYCERIDES (test code = 2232) 136 MG/DL HDL CHOLESTEROL (test code = 2220) 44 MG/DL CALC LDL CHOL (test code = 2237) 101 MG/DL RISK RATIO LDL/HDL (test code = 2.29 RATIO 2238) [id number] 00:00:00 Test Item Value Reference Range Interpretation Comments TESTOSTERONE (test code = 2830) <12 NG/DL TESTOSTERONE REF RANGE (test code = (NOTE) 57546) [id number] 00:00:00 Test Item Value Reference Range Interpretation Comments TESTOSTERONE (test code = 2830) <12 NG/DL TESTOSTERONE REF RANGE (test code = (NOTE) 10295) [id number] 00:00:00 Test Item Value Reference Range Interpretation Comments PROLACTIN (test code = 2800) 5.8 NG/ML [id number] 00:00:00 Test Item Value Reference Range Interpretation Comments PROLACTIN (test code = 2800) 5.8 NG/ML FSH + LH [id number] 00:00:00 Test Item Value Reference Range Interpretation Comments FOLLICLE STIM HORMONE (test code = 8.9 MIU/ML 2700) LUTEINIZING HORMONE (test code = 6.5 MIU/ML 2776) FSH + LH [id number] 00:00:00 Test Item Value Reference Range Interpretation Comments FOLLICLE STIM HORMONE (test code = 8.9 MIU/ML 2700) LUTEINIZING HORMONE (test code = 6.5 MIU/ML 2776) VITAMIN D,1,69-[id number] 00:00:00 Test Item Value Reference Range Interpretation Comments VITAMIN D,1,25-DIHYDROXY (test 11.3 PG/ML code = 4960) VITAMIN D,1,13-[id number] 00:00:00 Test Item Value Reference Range Interpretation Comments VITAMIN D,1,25-DIHYDROXY (test 11.3 PG/ML code = 4960) VITAMIN B 12 AND FOLIC [id number] 00:00:00 Test Item Value Reference Range Interpretation Comments VITAMIN B-12 (test code = 2840) 925 PG/ML FOLIC ACID (test code = 2695) >24.0 NG/ML VITAMIN B 12 AND FOLIC [id number] 00:00:00 Test Item Value Reference Range Interpretation [...] (test code = 2821) 0.4 UIU/ML LIPID [id number] 00:00:00 Test Item Value Reference Range Interpretation Comments CHOLESTEROL (test code = 2210) 172 MG/DL TRIGLYCERIDES (test code = 2232) 136 MG/DL HDL CHOLESTEROL (test code = 2220) 44 MG/DL CALC LDL CHOL (test code = 2237) 101 MG/DL RISK RATIO LDL/HDL (test code = 2.29 RATIO 2238) LIPID [id number] 00:00:00 Test Item Value Reference Range Interpretation Comments CHOLESTEROL (test code = 2210) 172 MG/DL TRIGLYCERIDES (test code = 2232) 136 MG/DL HDL CHOLESTEROL (test code = 2220) 44 MG/DL CALC LDL CHOL (test code = 2237) 101 MG/DL RISK RATIO LDL/HDL (test code = 2.29 RATIO 2238) [id number] 00:00:00 Test Item Value Reference Range Interpretation Comments TESTOSTERONE (test code = 2830) <12 NG/DL TESTOSTERONE REF RANGE (test code = (NOTE) 28852) [id number] 00:00:00 Test Item Value Reference Range Interpretation Comments TESTOSTERONE (test code = 2830) <12 NG/DL TESTOSTERONE REF RANGE (test code = (NOTE) 80172) [id number] 00:00:00 Test Item Value Reference Range Interpretation Comments PROLACTIN (test code = 2800) 5.8 NG/ML [id number] 00:00:00 Test Item Value Reference Range Interpretation Comments PROLACTIN (test code = 2800) 5.8 NG/ML FSH + LH [id number] 00:00:00 Test Item Value Reference Range Interpretation Comments FOLLICLE STIM HORMONE (test code = 8.9 MIU/ML 2700) LUTEINIZING HORMONE (test code = 6.5 MIU/ML 2776) FSH + LH [id number] 00:00:00 Test Item Value Reference Range Interpretation Comments FOLLICLE STIM HORMONE (test code = 8.9 MIU/ML 2700) LUTEINIZING HORMONE (test code = 6.5 MIU/ML 2776) VITAMIN D,1,82-[id number] 00:00:00 Test Item Value Reference Range Interpretation Comments VITAMIN D,1,25-DIHYDROXY (test 11.3 PG/ML code = 4960) VITAMIN D,1,80-[id number] 00:00:00 Test Item Value Reference Range Interpretation Comments VITAMIN D,1,25-DIHYDROXY (test 11.3 PG/ML code = 4960) VITAMIN B 12 AND FOLIC [id number] 00:00:00 Test Item Value Reference Range Interpretation Comments VITAMIN B-12 (test code = 2840) 925 PG/ML FOLIC ACID (test code = 2695) >24.0 NG/ML VITAMIN B 12 AND FOLIC [id number] 00:00:00 Test Item Value Reference Range Interpretation [...] (test code = 2821) 0.4 UIU/ML LIPID [id number] 00:00:00 Test Item Value Reference Range Interpretation Comments CHOLESTEROL (test code = 2210) 172 MG/DL TRIGLYCERIDES (test code = 2232) 136 MG/DL HDL CHOLESTEROL (test code = 2220) 44 MG/DL CALC LDL CHOL (test code = 2237) 101 MG/DL RISK RATIO LDL/HDL (test code = 2.29 RATIO 2238) LIPID [id number] 00:00:00 Test Item Value Reference Range Interpretation Comments CHOLESTEROL (test code = 2210) 172 MG/DL TRIGLYCERIDES (test code = 2232) 136 MG/DL HDL CHOLESTEROL (test code = 2220) 44 MG/DL CALC LDL CHOL (test code = 2237) 101 MG/DL RISK RATIO LDL/HDL (test code = 2.29 RATIO 2238) [id number] 00:00:00 Test Item Value Reference Range Interpretation Comments TESTOSTERONE (test code = 2830) <12 NG/DL TESTOSTERONE REF RANGE (test code = (NOTE) 40771) [id number] 00:00:00 Test Item Value Reference Range Interpretation Comments TESTOSTERONE (test code = 2830) <12 NG/DL TESTOSTERONE REF RANGE (test code = (NOTE) 97307) [id number] 00:00:00 Test Item Value Reference Range Interpretation Comments PROLACTIN (test code = 2800) 5.8 NG/ML [id number] 00:00:00 Test Item Value Reference Range Interpretation Comments PROLACTIN (test code = 2800) 5.8 NG/ML FSH + LH [id number] 00:00:00 Test Item Value Reference Range Interpretation Comments FOLLICLE STIM HORMONE (test code = 8.9 MIU/ML 2700) LUTEINIZING HORMONE (test code = 6.5 MIU/ML 2776) FSH + LH [id number] 00:00:00 Test Item Value Reference Range Interpretation Comments FOLLICLE STIM HORMONE (test code = 8.9 MIU/ML 2700) LUTEINIZING HORMONE (test code = 6.5 MIU/ML 2776) VITAMIN D,1,[id number] 00:00:00 Test Item Value Reference Range Interpretation Comments VITAMIN D,1,25-DIHYDROXY (test 11.3 PG/ML code = 4960) VITAMIN B 12 AND FOLIC [id number] 00:00:00 Test Item Value Reference Range Interpretation Comments VITAMIN B-12 (test code = 2840) 925 PG/ML FOLIC ACID (test code = 2695) >24.0 NG/ML THYROID II PROFILE (T3U, T4, T7, TSH)2016-03-22 00:00:00 Test Item Value Reference Range Interpretation Comments T3 UPTAKE (test code = 2817) 31.0 % T4 (THYROXINE) (test code = 2819) 7.4 UG/DL CALCULATED T7 (FTI) (test code = 2.29 9520) TSH (test code = 2821) 0.4 UIU/ML VITAMIN D,1,72-[id number] 00:00:00 Test Item Value Reference Range Interpretation Comments VITAMIN D,1,25-DIHYDROXY (test 11.3 PG/ML code = 4960) VITAMIN D,1,03-[id number] 00:00:00 Test Item Value Reference Range Interpretation Comments VITAMIN D,1,25-DIHYDROXY (test 11.3 PG/ML code = 4960) VITAMIN B 12 AND FOLIC [id number] 00:00:00 Test Item Value Reference Range Interpretation Comments VITAMIN B-12 (test code = 2840) 925 PG/ML FOLIC ACID (test code = 2695) >24.0 NG/ML VITAMIN B 12 AND FOLIC [id number] 00:00:00 Test Item Value Reference Range Interpretation [...] (test code = 2821) 0.4 UIU/ML LIPID [id number] 00:00:00 Test Item Value Reference Range Interpretation Comments CHOLESTEROL (test code = 2210) 172 MG/DL TRIGLYCERIDES (test code = 2232) 136 MG/DL HDL CHOLESTEROL (test code = 2220) 44 MG/DL CALC LDL CHOL (test code = 2237) 101 MG/DL RISK RATIO LDL/HDL (test code = 2.29 RATIO 2238) LIPID [id number] 00:00:00 Test Item Value Reference Range Interpretation Comments CHOLESTEROL (test code = 2210) 172 MG/DL TRIGLYCERIDES (test code = 2232) 136 MG/DL HDL CHOLESTEROL (test code = 2220) 44 MG/DL CALC LDL CHOL (test code = 2237) 101 MG/DL RISK RATIO LDL/HDL (test code = 2.29 RATIO 2238) [id number] 00:00:00 Test Item Value Reference Range Interpretation Comments TESTOSTERONE (test code = 2830) <12 NG/DL TESTOSTERONE REF RANGE (test code = (NOTE) 16214) [id number] 00:00:00 Test Item Value Reference Range Interpretation Comments TESTOSTERONE (test code = 2830) <12 NG/DL TESTOSTERONE REF RANGE (test code = (NOTE) 44861) [id number] 00:00:00 Test Item Value Reference Range Interpretation Comments PROLACTIN (test code = 2800) 5.8 NG/ML [id number] 00:00:00 Test Item Value Reference Range Interpretation Comments PROLACTIN (test code = 2800) 5.8 NG/ML FSH + LH [id number] 00:00:00 Test Item Value Reference Range Interpretation Comments FOLLICLE STIM HORMONE (test code = 8.9 MIU/ML 2700) LUTEINIZING HORMONE (test code = 6.5 MIU/ML 2776) FSH + LH [id number] 00:00:00 Test Item Value Reference Range Interpretation Comments FOLLICLE STIM HORMONE (test code = 8.9 MIU/ML 2700) LUTEINIZING HORMONE (test code = 6.5 MIU/ML 2776) LIPID [id number] 00:00:00 Test Item Value Reference Range Interpretation Comments CHOLESTEROL (test code = 2210) 172 MG/DL TRIGLYCERIDES (test code = 2232) 136 MG/DL HDL CHOLESTEROL (test code = 2220) 44 MG/DL CALC LDL CHOL (test code = 2237) 101 MG/DL RISK RATIO LDL/HDL (test code = 2.29 RATIO 2238) [id number] 00:00:00 Test Item Value Reference Range Interpretation Comments TESTOSTERONE (test code = 2830) <12 NG/DL TESTOSTERONE REF RANGE (test code = (NOTE) 39231) [id number] 00:00:00 Test Item Value Reference Range Interpretation Comments PROLACTIN (test code = 2800) 5.8 NG/ML FSH + LH [id number] 00:00:00 Test Item Value Reference Range Interpretation Comments FOLLICLE STIM HORMONE (test code = 8.9 MIU/ML 2700) LUTEINIZING HORMONE (test code = 6.5 MIU/ML 2776) VITAMIN D,1,21-[id number] 00:00:00 Test Item Value Reference Range Interpretation Comments VITAMIN D,1,25-DIHYDROXY (test 11.3 PG/ML code = 4960) VITAMIN D,1,03-[id number] 00:00:00 Test Item Value Reference Range Interpretation Comments VITAMIN D,1,25-DIHYDROXY (test 11.3 PG/ML code = 4960) VITAMIN B 12 AND FOLIC [id number] 00:00:00 Test Item Value Reference Range Interpretation Comments VITAMIN B-12 (test code = 2840) 925 PG/ML FOLIC ACID (test code = 2695) >24.0 NG/ML VITAMIN B 12 AND FOLIC [id number] 00:00:00 Test Item Value Reference Range Interpretation [...] (test code = 2821) 0.4 UIU/ML LIPID [id number] 00:00:00 Test Item Value Reference Range Interpretation Comments CHOLESTEROL (test code = 2210) 172 MG/DL TRIGLYCERIDES (test code = 2232) 136 MG/DL HDL CHOLESTEROL (test code = 2220) 44 MG/DL CALC LDL CHOL (test code = 2237) 101 MG/DL RISK RATIO LDL/HDL (test code = 2.29 RATIO 2238) LIPID [id number] 00:00:00 Test Item Value Reference Range Interpretation Comments CHOLESTEROL (test code = 2210) 172 MG/DL TRIGLYCERIDES (test code = 2232) 136 MG/DL HDL CHOLESTEROL (test code = 2220) 44 MG/DL CALC LDL CHOL (test code = 2237) 101 MG/DL RISK RATIO LDL/HDL (test code = 2.29 RATIO 2238) [id number] 00:00:00 Test Item Value Reference Range Interpretation Comments TESTOSTERONE (test code = 2830) <12 NG/DL TESTOSTERONE REF RANGE (test code = (NOTE) 01258) [id number] 00:00:00 Test Item Value Reference Range Interpretation Comments TESTOSTERONE (test code = 2830) <12 NG/DL TESTOSTERONE REF RANGE (test code = (NOTE) 50620) [id number] 00:00:00 Test Item Value Reference Range Interpretation Comments PROLACTIN (test code = 2800) 5.8 NG/ML [id number] 00:00:00 Test Item Value Reference Range Interpretation Comments PROLACTIN (test code = 2800) 5.8 NG/ML FSH + LH [id number] 00:00:00 Test Item Value Reference Range Interpretation Comments FOLLICLE STIM HORMONE (test code = 8.9 MIU/ML 2700) LUTEINIZING HORMONE (test code = 6.5 MIU/ML 2776) FSH + LH [id number] 00:00:00 Test Item Value Reference Range Interpretation Comments FOLLICLE STIM HORMONE (test code = 8.9 MIU/ML 2700) LUTEINIZING HORMONE (test code = 6.5 MIU/ML 2776) VITAMIN D,1,04-[id number] 00:00:00 Test Item Value Reference Range Interpretation Comments VITAMIN D,1,25-DIHYDROXY (test 11.3 PG/ML code = 4960) VITAMIN D,1,07-[id number] 00:00:00 Test Item Value Reference Range Interpretation Comments VITAMIN D,1,25-DIHYDROXY (test 11.3 PG/ML code = 4960) VITAMIN B 12 AND FOLIC [id number] 00:00:00 Test Item Value Reference Range Interpretation Comments VITAMIN B-12 (test code = 2840) 925 PG/ML FOLIC ACID (test code = 2695) >24.0 NG/ML VITAMIN B 12 AND FOLIC [id number] 00:00:00 Test Item Value Reference Range Interpretation [...] (test code = 2821) 0.4 UIU/ML LIPID [id number] 00:00:00 Test Item Value Reference Range Interpretation Comments CHOLESTEROL (test code = 2210) 172 MG/DL TRIGLYCERIDES (test code = 2232) 136 MG/DL HDL CHOLESTEROL (test code = 2220) 44 MG/DL CALC LDL CHOL (test code = 2237) 101 MG/DL RISK RATIO LDL/HDL (test code = 2.29 RATIO 2238) LIPID [id number] 00:00:00 Test Item Value Reference Range Interpretation Comments CHOLESTEROL (test code = 2210) 172 MG/DL TRIGLYCERIDES (test code = 2232) 136 MG/DL HDL CHOLESTEROL (test code = 2220) 44 MG/DL CALC LDL CHOL (test code = 2237) 101 MG/DL RISK RATIO LDL/HDL (test code = 2.29 RATIO 2238) [id number] 00:00:00 Test Item Value Reference Range Interpretation Comments TESTOSTERONE (test code = 2830) <12 NG/DL TESTOSTERONE REF RANGE (test code = (NOTE) 77901) [id number] 00:00:00 Test Item Value Reference Range Interpretation Comments TESTOSTERONE (test code = 2830) <12 NG/DL TESTOSTERONE REF RANGE (test code = (NOTE) 13573) [id number] 00:00:00 Test Item Value Reference Range Interpretation Comments PROLACTIN (test code = 2800) 5.8 NG/ML [id number] 00:00:00 Test Item Value Reference Range Interpretation Comments PROLACTIN (test code = 2800) 5.8 NG/ML FSH + LH [id number] 00:00:00 Test Item Value Reference Range Interpretation Comments FOLLICLE STIM HORMONE (test code = 8.9 MIU/ML 2700) LUTEINIZING HORMONE (test code = 6.5 MIU/ML 2776) FSH + LH [id number] 00:00:00 Test Item Value Reference Range Interpretation Comments FOLLICLE STIM HORMONE (test code = 8.9 MIU/ML 2700) LUTEINIZING HORMONE (test code = 6.5 MIU/ML 2776) SEDIMENTATION [id number] 00:00:00 Test Item Value Reference Range Interpretation Comments SEDIMENTATION RATE (test code = 35 MM/HOUR 1017) SEDIMENTATION [id number] 00:00:00 Test Item Value Reference Range Interpretation Comments SEDIMENTATION RATE (test code = 35 MM/HOUR 1017) CBC W/AUTO [id number] 00:00:00 Test Item Value Reference Range Interpretation [...] code = 1015) 246 K/UL CBC W/AUTO [id number] 00:00:00 Test Item Value Reference Range Interpretation [...] code = 1015) 246 K/UL CBC W/AUTO [id number] 00:00:00 Test Item Value Reference Range Interpretation [...] (test code = 1015) 246 K/UL HEMOGLOBIN [id number] 00:00:00 Test Item Value Reference Range Interpretation Comments HEMOGLOBIN A1c (test code = 66784) 6.2 % HEMOGLOBIN [id number] 00:00:00 Test Item Value Reference Range Interpretation Comments HEMOGLOBIN A1c (test code = 81682) 6.2 % HEMOGLOBIN [id number] 00:00:00 Test Item Value Reference Range Interpretation Comments HEMOGLOBIN A1c (test code = 94478) 6.2 % SEDIMENTATION [id number] 00:00:00 Test Item Value Reference Range Interpretation Comments SEDIMENTATION RATE (test code = 35 MM/HOUR 1017) SEDIMENTATION [id number] 00:00:00 Test Item Value Reference Range Interpretation Comments SEDIMENTATION RATE (test code = 35 MM/HOUR 1017) CBC W/AUTO [id number] 00:00:00 Test Item Value Reference Range Interpretation [...] code = 1015) 246 K/UL CBC W/AUTO [id number] 00:00:00 Test Item Value Reference Range Interpretation [...] code = 1015) 246 K/UL CBC W/AUTO [id number] 00:00:00 Test Item Value Reference Range Interpretation [...] (test code = 1015) 246 K/UL HEMOGLOBIN [id number] 00:00:00 Test Item Value Reference Range Interpretation Comments HEMOGLOBIN A1c (test code = 38859) 6.2 % HEMOGLOBIN [id number] 00:00:00 Test Item Value Reference Range Interpretation Comments HEMOGLOBIN A1c (test code = 18091) 6.2 % HEMOGLOBIN [id number] 00:00:00 Test Item Value Reference Range Interpretation Comments HEMOGLOBIN A1c (test code = 24632) 6.2 % SEDIMENTATION [id number] 00:00:00 Test Item Value Reference Range Interpretation Comments SEDIMENTATION RATE (test code = 35 MM/HOUR 1017) SEDIMENTATION [id number] 00:00:00 Test Item Value Reference Range Interpretation Comments SEDIMENTATION RATE (test code = 35 MM/HOUR 1017) CBC W/AUTO [id number] 00:00:00 Test Item Value Reference Range Interpretation [...] code = 1015) 246 K/UL CBC W/AUTO [id number] 00:00:00 Test Item Value Reference Range Interpretation [...] code = 1015) 246 K/UL CBC W/AUTO [id number] 00:00:00 Test Item Value Reference Range Interpretation [...] (test code = 1015) 246 K/UL HEMOGLOBIN [id number] 00:00:00 Test Item Value Reference Range Interpretation Comments HEMOGLOBIN A1c (test code = 15587) 6.2 % HEMOGLOBIN [id number] 00:00:00 Test Item Value Reference Range Interpretation Comments HEMOGLOBIN A1c (test code = 83204) 6.2 % HEMOGLOBIN [id number] 00:00:00 Test Item Value Reference Range Interpretation Comments HEMOGLOBIN A1c (test code = 22163) 6.2 % SEDIMENTATION [id number] 00:00:00 Test Item Value Reference Range Interpretation Comments SEDIMENTATION RATE (test code = 35 MM/HOUR 1017) SEDIMENTATION [id number] 00:00:00 Test Item Value Reference Range Interpretation Comments SEDIMENTATION RATE (test code = 35 MM/HOUR 1017) CBC W/AUTO [id number] 00:00:00 Test Item Value Reference Range Interpretation [...] code = 1015) 246 K/UL CBC W/AUTO [id number] 00:00:00 Test Item Value Reference Range Interpretation [...] code = 1015) 246 K/UL CBC W/AUTO [id number] 00:00:00 Test Item Value Reference Range Interpretation [...] (test code = 1015) 246 K/UL HEMOGLOBIN [id number] 00:00:00 Test Item Value Reference Range Interpretation Comments HEMOGLOBIN A1c (test code = 81690) 6.2 % HEMOGLOBIN [id number] 00:00:00 Test Item Value Reference Range Interpretation Comments HEMOGLOBIN A1c (test code = 62125) 6.2 % HEMOGLOBIN [id number] 00:00:00 Test Item Value Reference Range Interpretation Comments HEMOGLOBIN A1c (test code = 16310) 6.2 % SEDIMENTATION [id number] 00:00:00 Test Item Value Reference Range Interpretation Comments SEDIMENTATION RATE (test code = 35 MM/HOUR 1017) SEDIMENTATION [id number] 00:00:00 Test Item Value Reference Range Interpretation Comments SEDIMENTATION RATE (test code = 35 MM/HOUR 1017) CBC W/AUTO [id number] 00:00:00 Test Item Value Reference Range Interpretation [...] code = 1015) 246 K/UL CBC W/AUTO [id number] 00:00:00 Test Item Value Reference Range Interpretation [...] code = 1015) 246 K/UL CBC W/AUTO [id number] 00:00:00 Test Item Value Reference Range Interpretation [...] (test code = 1015) 246 K/UL HEMOGLOBIN [id number] 00:00:00 Test Item Value Reference Range Interpretation Comments HEMOGLOBIN A1c (test code = 98037) 6.2 % HEMOGLOBIN [id number] 00:00:00 Test Item Value Reference Range Interpretation Comments HEMOGLOBIN A1c (test code = 87082) 6.2 % HEMOGLOBIN [id number] 00:00:00 Test Item Value Reference Range Interpretation Comments HEMOGLOBIN A1c (test code = 26962) 6.2 % SEDIMENTATION [id number] 00:00:00 Test Item Value Reference Range Interpretation Comments SEDIMENTATION RATE (test code = 35 MM/HOUR 1017) SEDIMENTATION [id number] 00:00:00 Test Item Value Reference Range Interpretation Comments SEDIMENTATION RATE (test code = 35 MM/HOUR 1017) CBC W/AUTO [id number] 00:00:00 Test Item Value Reference Range Interpretation [...] code = 1015) 246 K/UL CBC W/AUTO [id number] 00:00:00 Test Item Value Reference Range Interpretation [...] code = 1015) 246 K/UL CBC W/AUTO [id number] 00:00:00 Test Item Value Reference Range Interpretation [...] (test code = 1015) 246 K/UL HEMOGLOBIN [id number] 00:00:00 Test Item Value Reference Range Interpretation Comments HEMOGLOBIN A1c (test code = 87104) 6.2 % HEMOGLOBIN [id number] 00:00:00 Test Item Value Reference Range Interpretation Comments HEMOGLOBIN A1c (test code = 88429) 6.2 % HEMOGLOBIN [id number] 00:00:00 Test Item Value Reference Range Interpretation Comments HEMOGLOBIN A1c (test code = 85825) 6.2 % SEDIMENTATION [id number] 00:00:00 Test Item Value Reference Range Interpretation Comments SEDIMENTATION RATE (test code = 35 MM/HOUR 1017) SEDIMENTATION [id number] 00:00:00 Test Item Value Reference Range Interpretation Comments SEDIMENTATION RATE (test code = 35 MM/HOUR 1017) CBC W/AUTO [id number] 00:00:00 Test Item Value Reference Range Interpretation [...] code = 1015) 246 K/UL CBC W/AUTO [id number] 00:00:00 Test Item Value Reference Range Interpretation [...] code = 1015) 246 K/UL CBC W/AUTO [id number] 00:00:00 Test Item Value Reference Range Interpretation [...] (test code = 1015) 246 K/UL HEMOGLOBIN [id number] 00:00:00 Test Item Value Reference Range Interpretation Comments HEMOGLOBIN A1c (test code = 24559) 6.2 % HEMOGLOBIN [id number] 00:00:00 Test Item Value Reference Range Interpretation Comments HEMOGLOBIN A1c (test code = 60007) 6.2 % HEMOGLOBIN [id number] 00:00:00 Test Item Value Reference Range Interpretation Comments HEMOGLOBIN A1c (test code = 83463) 6.2 % SEDIMENTATION [id number] 00:00:00 Test Item Value Reference Range Interpretation Comments SEDIMENTATION RATE (test code = 35 MM/HOUR 1017) SEDIMENTATION [id number] 00:00:00 Test Item Value Reference Range Interpretation Comments SEDIMENTATION RATE (test code = 35 MM/HOUR 1017) SEDIMENTATION [id number] 00:00:00 Test Item Value Reference Range Interpretation Comments SEDIMENTATION RATE (test code = 35 MM/HOUR 1017) CBC W/AUTO [id number] 00:00:00 Test Item Value Reference Range Interpretation [...] code = 1015) 246 K/UL CBC W/AUTO [id number] 00:00:00 Test Item Value Reference Range Interpretation [...] code = 1015) 246 K/UL CBC W/AUTO [id number] 00:00:00 Test Item Value Reference Range Interpretation [...] code = 1015) 246 K/UL CBC W/AUTO [id number] 00:00:00 Test Item Value Reference Range Interpretation [...] (test code = 1015) 246 K/UL HEMOGLOBIN [id number] 00:00:00 Test Item Value Reference Range Interpretation Comments HEMOGLOBIN A1c (test code = 66428) 6.2 % HEMOGLOBIN [id number] 00:00:00 Test Item Value Reference Range Interpretation Comments HEMOGLOBIN A1c (test code = 47160) 6.2 % HEMOGLOBIN [id number] 00:00:00 Test Item Value Reference Range Interpretation Comments HEMOGLOBIN A1c (test code = 63042) 6.2 % CBC W/AUTO [id number] 00:00:00 Test Item Value Reference Range Interpretation [...] (test code = 1015) 246 K/UL HEMOGLOBIN [id number] 00:00:00 Test Item Value Reference Range Interpretation Comments HEMOGLOBIN A1c (test code = 89173) 6.2 % HEMOGLOBIN [id number] 00:00:00 Test Item Value Reference Range Interpretation Comments HEMOGLOBIN A1c (test code = 10579) 6.2 % SEDIMENTATION [id number] 00:00:00 Test Item Value Reference Range Interpretation Comments SEDIMENTATION RATE (test code = 35 MM/HOUR 1017) SEDIMENTATION [id number] 00:00:00 Test Item Value Reference Range Interpretation Comments SEDIMENTATION RATE (test code = 35 MM/HOUR 1017) CBC W/AUTO [id number] 00:00:00 Test Item Value Reference Range Interpretation [...] code = 1015) 246 K/UL CBC W/AUTO [id number] 00:00:00 Test Item Value Reference Range Interpretation [...] code = 1015) 246 K/UL CBC W/AUTO [id number] 00:00:00 Test Item Value Reference Range Interpretation [...] (test code = 1015) 246 K/UL HEMOGLOBIN [id number] 00:00:00 Test Item Value Reference Range Interpretation Comments HEMOGLOBIN A1c (test code = 48642) 6.2 % HEMOGLOBIN [id number] 00:00:00 Test Item Value Reference Range Interpretation Comments HEMOGLOBIN A1c (test code = 83570) 6.2 % HEMOGLOBIN [id number] 00:00:00 Test Item Value Reference Range Interpretation Comments HEMOGLOBIN A1c (test code = 92964) 6.2 % SEDIMENTATION [id number] 00:00:00 Test Item Value Reference Range Interpretation Comments SEDIMENTATION RATE (test code = 35 MM/HOUR 1017) SEDIMENTATION [id number] 00:00:00 Test Item Value Reference Range Interpretation Comments SEDIMENTATION RATE (test code = 35 MM/HOUR 1017) CBC W/AUTO [id number] 00:00:00 Test Item Value Reference Range Interpretation [...] code = 1015) 246 K/UL CBC W/AUTO [id number] 00:00:00 Test Item Value Reference Range Interpretation [...] code = 1015) 246 K/UL CBC W/AUTO [id number] 00:00:00 Test Item Value Reference Range Interpretation [...] (test code = 1015) 246 K/UL HEMOGLOBIN [id number] 00:00:00 Test Item Value Reference Range Interpretation Comments HEMOGLOBIN A1c (test code = 41331) 6.2 % HEMOGLOBIN [id number] 00:00:00 Test Item Value Reference Range Interpretation Comments HEMOGLOBIN A1c (test code = 07550) 6.2 % HEMOGLOBIN [id number] 00:00:00 Test Item Value Reference Range Interpretation Comments HEMOGLOBIN A1c (test code = 12997) 6.2 % COMPREHENSIVE METABOLIC [id number] 00:00:00 Test Item Value Reference Range Interpretation Comments GLUCOSE (test code = 2217) 100 MG/DL BUN (test code = 2208) 10 MG/DL CREATININE (test code = 2214) 0.61 MG/DL eGFR AMER. (test code 134 ML/MIN/1.73 = 95434) eGFR NON- AMER. (test 116 ML/MIN/1.73 code = 10369) CALCULATED BUN/CREAT (test 16 RATIO code = [...] code = 2219) 16 U/L COMPREHENSIVE METABOLIC [id number] 00:00:00 Test Item Value Reference Range Interpretation Comments GLUCOSE (test code = 2217) 100 MG/DL BUN (test code = 2208) 10 MG/DL CREATININE (test code = 2214) 0.61 MG/DL eGFR AMER. (test code 134 ML/MIN/1.73 = 19578) eGFR NON- AMER. (test 116 ML/MIN/1.73 code = 79911) CALCULATED BUN/CREAT (test 16 RATIO code = [...] (test code = 2219) 16 U/L LIPID [id number] 00:00:00 Test Item Value Reference Range Interpretation Comments CHOLESTEROL (test code = 2210) 166 MG/DL TRIGLYCERIDES (test code = 2232) 72 MG/DL HDL CHOLESTEROL (test code = 2220) 47 MG/DL CALCULATED LDL CHOL (test code = 105 MG/DL 2236) RISK RATIO LDL/HDL (test code = 2.23 RATIO 2238) LIPID [id number] 00:00:00 Test Item Value Reference Range Interpretation Comments CHOLESTEROL (test code = 2210) 166 MG/DL TRIGLYCERIDES (test code = 2232) 72 MG/DL HDL CHOLESTEROL (test code = 2220) 47 MG/DL CALCULATED LDL CHOL (test code = 105 MG/DL 2236) RISK RATIO LDL/HDL (test code = 2.23 RATIO 2238) [id number] 00:00:00 Test Item Value Reference Range Interpretation Comments TSH (test code = 2821) 1.2 UIU/ML [id number] 00:00:00 Test Item Value Reference Range Interpretation Comments TSH (test code = 2821) 1.2 UIU/ML [id number] 00:00:00 Test Item Value Reference Range Interpretation Comments TSH (test code = 2821) 1.2 UIU/ML COMPREHENSIVE METABOLIC [id number] 00:00:00 Test Item Value Reference Range Interpretation Comments GLUCOSE (test code = 2217) 100 MG/DL BUN (test code = 2208) 10 MG/DL CREATININE (test code = 2214) 0.61 MG/DL eGFR AMER. (test code 134 ML/MIN/1.73 = 30972) eGFR NON- AMER. (test 116 ML/MIN/1.73 code = 12743) CALCULATED BUN/CREAT (test 16 RATIO code = [...] code = 2219) 16 U/L COMPREHENSIVE METABOLIC [id number] 00:00:00 Test Item Value Reference Range Interpretation Comments GLUCOSE (test code = 2217) 100 MG/DL BUN (test code = 2208) 10 MG/DL CREATININE (test code = 2214) 0.61 MG/DL eGFR AMER. (test code 134 ML/MIN/1.73 = 83056) eGFR NON- AMER. (test 116 ML/MIN/1.73 code = 80763) CALCULATED BUN/CREAT (test 16 RATIO code = [...] (test code = 2219) 16 U/L LIPID [id number] 00:00:00 Test Item Value Reference Range Interpretation Comments CHOLESTEROL (test code = 2210) 166 MG/DL TRIGLYCERIDES (test code = 2232) 72 MG/DL HDL CHOLESTEROL (test code = 2220) 47 MG/DL CALCULATED LDL CHOL (test code = 105 MG/DL 2236) RISK RATIO LDL/HDL (test code = 2.23 RATIO 2238) LIPID [id number] 00:00:00 Test Item Value Reference Range Interpretation Comments CHOLESTEROL (test code = 2210) 166 MG/DL TRIGLYCERIDES (test code = 2232) 72 MG/DL HDL CHOLESTEROL (test code = 2220) 47 MG/DL CALCULATED LDL CHOL (test code = 105 MG/DL 7) RISK RATIO LDL/HDL (test code = 2.23 RATIO 2238) [id number] 00:00:00 Test Item Value Reference Range Interpretation Comments TSH (test code = 2821) 1.2 UIU/ML [id number] 00:00:00 Test Item Value Reference Range Interpretation Comments TSH (test code = 2821) 1.2 UIU/ML [id number] 00:00:00 Test Item Value Reference Range Interpretation Comments TSH (test code = 2821) 1.2 UIU/ML COMPREHENSIVE METABOLIC [id number] 00:00:00 Test Item Value Reference Range Interpretation Comments GLUCOSE (test code = 2217) 100 MG/DL BUN (test code = 2208) 10 MG/DL CREATININE (test code = 2214) 0.61 MG/DL eGFR AMER. (test code 134 ML/MIN/1.73 = 11114) eGFR NON- AMER. (test 116 ML/MIN/1.73 code = 97251) CALCULATED BUN/CREAT (test 16 RATIO code = [...] code = 2219) 16 U/L COMPREHENSIVE METABOLIC [id number] 00:00:00 Test Item Value Reference Range Interpretation Comments GLUCOSE (test code = 2217) 100 MG/DL BUN (test code = 2208) 10 MG/DL CREATININE (test code = 2214) 0.61 MG/DL eGFR AMER. (test code 134 ML/MIN/1.73 = 64550) eGFR NON- AMER. (test 116 ML/MIN/1.73 code = 35910) CALCULATED BUN/CREAT (test 16 RATIO code = [...] (test code = 2219) 16 U/L LIPID [id number] 00:00:00 Test Item Value Reference Range Interpretation Comments CHOLESTEROL (test code = 2210) 166 MG/DL TRIGLYCERIDES (test code = 2232) 72 MG/DL HDL CHOLESTEROL (test code = 2220) 47 MG/DL CALCULATED LDL CHOL (test code = 105 MG/DL 2237) RISK RATIO LDL/HDL (test code = 2.23 RATIO 2238) LIPID [id number] 00:00:00 Test Item Value Reference Range Interpretation Comments CHOLESTEROL (test code = 2210) 166 MG/DL TRIGLYCERIDES (test code = 2232) 72 MG/DL HDL CHOLESTEROL (test code = 2220) 47 MG/DL CALCULATED LDL CHOL (test code = 105 MG/DL 2237) RISK RATIO LDL/HDL (test code = 2.23 RATIO 2238) [id number] 00:00:00 Test Item Value Reference Range Interpretation Comments TSH (test code = 2821) 1.2 UIU/ML [id number] 00:00:00 Test Item Value Reference Range Interpretation Comments TSH (test code = 2821) 1.2 UIU/ML [id number] 00:00:00 Test Item Value Reference Range Interpretation Comments TSH (test code = 2821) 1.2 UIU/ML COMPREHENSIVE METABOLIC [id number] 00:00:00 Test Item Value Reference Range Interpretation Comments GLUCOSE (test code = 2217) 100 MG/DL BUN (test code = 2208) 10 MG/DL CREATININE (test code = 2214) 0.61 MG/DL eGFR AMER. (test code 134 ML/MIN/1.73 = 39914) eGFR NON- AMER. (test 116 ML/MIN/1.73 code = 00048) CALCULATED BUN/CREAT (test 16 RATIO code = [...] code = 2219) 16 U/L COMPREHENSIVE METABOLIC [id number] 00:00:00 Test Item Value Reference Range Interpretation Comments GLUCOSE (test code = 2217) 100 MG/DL BUN (test code = 2208) 10 MG/DL CREATININE (test code = 2214) 0.61 MG/DL eGFR AMER. (test code 134 ML/MIN/1.73 = 92501) eGFR NON- AMER. (test 116 ML/MIN/1.73 code = 11491) CALCULATED BUN/CREAT (test 16 RATIO code = [...] (test code = 2219) 16 U/L LIPID [id number] 00:00:00 Test Item Value Reference Range Interpretation Comments CHOLESTEROL (test code = 2210) 166 MG/DL TRIGLYCERIDES (test code = 2232) 72 MG/DL HDL CHOLESTEROL (test code = 2220) 47 MG/DL CALCULATED LDL CHOL (test code = 105 MG/DL 7) RISK RATIO LDL/HDL (test code = 2.23 RATIO 2238) LIPID [id number] 00:00:00 Test Item Value Reference Range Interpretation Comments CHOLESTEROL (test code = 2210) 166 MG/DL TRIGLYCERIDES (test code = 2232) 72 MG/DL HDL CHOLESTEROL (test code = 2220) 47 MG/DL CALCULATED LDL CHOL (test code = 105 MG/DL 7) RISK RATIO LDL/HDL (test code = 2.23 RATIO 2238) [id number] 00:00:00 Test Item Value Reference Range Interpretation Comments TSH (test code = 2821) 1.2 UIU/ML [id number] 00:00:00 Test Item Value Reference Range Interpretation Comments TSH (test code = 2821) 1.2 UIU/ML [id number] 00:00:00 Test Item Value Reference Range Interpretation Comments TSH (test code = 2821) 1.2 UIU/ML COMPREHENSIVE METABOLIC [id number] 00:00:00 Test Item Value Reference Range Interpretation Comments GLUCOSE (test code = 2217) 100 MG/DL BUN (test code = 2208) 10 MG/DL CREATININE (test code = 2214) 0.61 MG/DL eGFR AMER. (test code 134 ML/MIN/1.73 = 72093) eGFR NON- AMER. (test 116 ML/MIN/1.73 code = 72514) CALCULATED BUN/CREAT (test 16 RATIO code = [...] code = 2219) 16 U/L COMPREHENSIVE METABOLIC [id number] 00:00:00 Test Item Value Reference Range Interpretation Comments GLUCOSE (test code = 2217) 100 MG/DL BUN (test code = 2208) 10 MG/DL CREATININE (test code = 2214) 0.61 MG/DL eGFR AMER. (test code 134 ML/MIN/1.73 = 31287) eGFR NON- AMER. (test 116 ML/MIN/1.73 code = 59697) CALCULATED BUN/CREAT (test 16 RATIO code = [...] (test code = 2219) 16 U/L LIPID [id number] 00:00:00 Test Item Value Reference Range Interpretation Comments CHOLESTEROL (test code = 2210) 166 MG/DL TRIGLYCERIDES (test code = 2232) 72 MG/DL HDL CHOLESTEROL (test code = 2220) 47 MG/DL CALCULATED LDL CHOL (test code = 105 MG/DL 2236) RISK RATIO LDL/HDL (test code = 2.23 RATIO 2237) LIPID [id number] 00:00:00 Test Item Value Reference Range Interpretation Comments CHOLESTEROL (test code = 2210) 166 MG/DL TRIGLYCERIDES (test code = 2232) 72 MG/DL HDL CHOLESTEROL (test code = 2220) 47 MG/DL CALCULATED LDL CHOL (test code = 105 MG/DL 2236) RISK RATIO LDL/HDL (test code = 2.23 RATIO 2238) [id number] 00:00:00 Test Item Value Reference Range Interpretation Comments TSH (test code = 2821) 1.2 UIU/ML [id number] 00:00:00 Test Item Value Reference Range Interpretation Comments TSH (test code = 2821) 1.2 UIU/ML [id number] 00:00:00 Test Item Value Reference Range Interpretation Comments TSH (test code = 2821) 1.2 UIU/ML COMPREHENSIVE METABOLIC [id number] 00:00:00 Test Item Value Reference Range Interpretation Comments GLUCOSE (test code = 2217) 100 MG/DL BUN (test code = 2208) 10 MG/DL CREATININE (test code = 2214) 0.61 MG/DL eGFR AMER. (test code 134 ML/MIN/1.73 = 26395) eGFR NON- AMER. (test 116 ML/MIN/1.73 code = 30001) CALCULATED BUN/CREAT (test 16 RATIO code = [...] code = 2219) 16 U/L COMPREHENSIVE METABOLIC [id number] 00:00:00 Test Item Value Reference Range Interpretation Comments GLUCOSE (test code = 2217) 100 MG/DL BUN (test code = 2208) 10 MG/DL CREATININE (test code = 2214) 0.61 MG/DL eGFR AMER. (test code 134 ML/MIN/1.73 = 81959) eGFR NON- AMER. (test 116 ML/MIN/1.73 code = 36938) CALCULATED BUN/CREAT (test 16 RATIO code = [...] (test code = 2219) 16 U/L LIPID [id number] 00:00:00 Test Item Value Reference Range Interpretation Comments CHOLESTEROL (test code = 2210) 166 MG/DL TRIGLYCERIDES (test code = 2232) 72 MG/DL HDL CHOLESTEROL (test code = 2220) 47 MG/DL CALCULATED LDL CHOL (test code = 105 MG/DL 2237) RISK RATIO LDL/HDL (test code = 2.23 RATIO 2238) LIPID [id number] 00:00:00 Test Item Value Reference Range Interpretation Comments CHOLESTEROL (test code = 2210) 166 MG/DL TRIGLYCERIDES (test code = 2232) 72 MG/DL HDL CHOLESTEROL (test code = 2220) 47 MG/DL CALCULATED LDL CHOL (test code = 105 MG/DL 2237) RISK RATIO LDL/HDL (test code = 2.23 RATIO 2238) [id number] 00:00:00 Test Item Value Reference Range Interpretation Comments TSH (test code = 2821) 1.2 UIU/ML [id number] 00:00:00 Test Item Value Reference Range Interpretation Comments TSH (test code = 2821) 1.2 UIU/ML [id number] 00:00:00 Test Item Value Reference Range Interpretation Comments TSH (test code = 2821) 1.2 UIU/ML COMPREHENSIVE METABOLIC [id number] 00:00:00 Test Item Value Reference Range Interpretation Comments GLUCOSE (test code = 2217) 100 MG/DL BUN (test code = 2208) 10 MG/DL CREATININE (test code = 2214) 0.61 MG/DL eGFR AMER. (test code 134 ML/MIN/1.73 = 06555) eGFR NON- AMER. (test 116 ML/MIN/1.73 code = 29245) CALCULATED BUN/CREAT (test 16 RATIO code = [...] code = 2219) 16 U/L COMPREHENSIVE METABOLIC [id number] 00:00:00 Test Item Value Reference Range Interpretation Comments GLUCOSE (test code = 2217) 100 MG/DL BUN (test code = 2208) 10 MG/DL CREATININE (test code = 2214) 0.61 MG/DL eGFR AMER. (test code 134 ML/MIN/1.73 = 01110) eGFR NON- AMER. (test 116 ML/MIN/1.73 code = 27560) CALCULATED BUN/CREAT (test 16 RATIO code = [...] code = 2219) 16 U/L COMPREHENSIVE METABOLIC [id number] 00:00:00 Test Item Value Reference Range Interpretation Comments GLUCOSE (test code = 2217) 100 MG/DL BUN (test code = 2208) 10 MG/DL CREATININE (test code = 2214) 0.61 MG/DL eGFR AMER. (test code 134 ML/MIN/1.73 = 78797) eGFR NON- AMER. (test 116 ML/MIN/1.73 code = 83406) CALCULATED BUN/CREAT (test 16 RATIO code = [...] (test code = 2219) 16 U/L LIPID [id number] 00:00:00 Test Item Value Reference Range Interpretation Comments CHOLESTEROL (test code = 2210) 166 MG/DL TRIGLYCERIDES (test code = 2232) 72 MG/DL HDL CHOLESTEROL (test code = 2220) 47 MG/DL CALCULATED LDL CHOL (test code = 105 MG/DL 2236) RISK RATIO LDL/HDL (test code = 2.23 RATIO 223) LIPID [id number] 00:00:00 Test Item Value Reference Range Interpretation Comments CHOLESTEROL (test code = 2210) 166 MG/DL TRIGLYCERIDES (test code = 2232) 72 MG/DL HDL CHOLESTEROL (test code = 2220) 47 MG/DL CALCULATED LDL CHOL (test code = 105 MG/DL 2237) RISK RATIO LDL/HDL (test code = 2.23 RATIO 2238) [id number] 00:00:00 Test Item Value Reference Range Interpretation Comments TSH (test code = 2821) 1.2 UIU/ML [id number] 00:00:00 Test Item Value Reference Range Interpretation Comments TSH (test code = 2821) 1.2 UIU/ML [id number] 00:00:00 Test Item Value Reference Range Interpretation Comments TSH (test code = 2821) 1.2 UIU/ML LIPID [id number] 00:00:00 Test Item Value Reference Range Interpretation Comments CHOLESTEROL (test code = 2210) 166 MG/DL TRIGLYCERIDES (test code = 2232) 72 MG/DL HDL CHOLESTEROL (test code = 2220) 47 MG/DL CALCULATED LDL CHOL (test code = 105 MG/DL 2237) RISK RATIO LDL/HDL (test code = 2.23 RATIO 2238) COMPREHENSIVE METABOLIC [id number] 00:00:00 Test Item Value Reference Range Interpretation Comments GLUCOSE (test code = 2217) 100 MG/DL BUN (test code = 2208) 10 MG/DL CREATININE (test code = 2214) 0.61 MG/DL eGFR AMER. (test code 134 ML/MIN/1.73 = 18812) eGFR NON- AMER. (test 116 ML/MIN/1.73 code = 59739) CALCULATED BUN/CREAT (test 16 RATIO code = [...] code = 2219) 16 U/L COMPREHENSIVE METABOLIC [id number] 00:00:00 Test Item Value Reference Range Interpretation Comments GLUCOSE (test code = 2217) 100 MG/DL BUN (test code = 2208) 10 MG/DL CREATININE (test code = 2214) 0.61 MG/DL eGFR AMER. (test code 134 ML/MIN/1.73 = 06228) eGFR NON- AMER. (test 116 ML/MIN/1.73 code = 40579) CALCULATED BUN/CREAT (test 16 RATIO code = [...] (test code = 2219) 16 U/L LIPID [id number] 00:00:00 Test Item Value Reference Range Interpretation Comments CHOLESTEROL (test code = 2210) 166 MG/DL TRIGLYCERIDES (test code = 2232) 72 MG/DL HDL CHOLESTEROL (test code = 2220) 47 MG/DL CALCULATED LDL CHOL (test code = 105 MG/DL 2236) RISK RATIO LDL/HDL (test code = 2.23 RATIO 2238) LIPID [id number] 00:00:00 Test Item Value Reference Range Interpretation Comments CHOLESTEROL (test code = 2210) 166 MG/DL TRIGLYCERIDES (test code = 2232) 72 MG/DL HDL CHOLESTEROL (test code = 2220) 47 MG/DL CALCULATED LDL CHOL (test code = 105 MG/DL 2236) RISK RATIO LDL/HDL (test code = 2.23 RATIO 2237) [id number] 00:00:00 Test Item Value Reference Range Interpretation Comments TSH (test code = 2821) 1.2 UIU/ML [id number] 00:00:00 Test Item Value Reference Range Interpretation Comments TSH (test code = 2821) 1.2 UIU/ML [id number] 00:00:00 Test Item Value Reference Range Interpretation Comments TSH (test code = 2821) 1.2 UIU/ML [id number] 00:00:00 Test Item Value Reference Range Interpretation Comments TSH (test code = 2821) 1.2 UIU/ML [id number] 00:00:00 Test Item Value Reference Range Interpretation Comments TSH (test code = 2821) 1.2 UIU/ML COMPREHENSIVE METABOLIC [id number] 00:00:00 Test Item Value Reference Range Interpretation Comments GLUCOSE (test code = 2217) 100 MG/DL BUN (test code = 2208) 10 MG/DL CREATININE (test code = 2214) 0.61 MG/DL eGFR AMER. (test code 134 ML/MIN/1.73 = 50846) eGFR NON- AMER. (test 116 ML/MIN/1.73 code = 38264) CALCULATED BUN/CREAT (test 16 RATIO code = [...] code = 2219) 16 U/L COMPREHENSIVE METABOLIC [id number] 00:00:00 Test Item Value Reference Range Interpretation Comments GLUCOSE (test code = 2217) 100 MG/DL BUN (test code = 2208) 10 MG/DL CREATININE (test code = 2214) 0.61 MG/DL eGFR AMER. (test code 134 ML/MIN/1.73 = 34315) eGFR NON- AMER. (test 116 ML/MIN/1.73 code = 05762) CALCULATED BUN/CREAT (test 16 RATIO code = [...] (test code = 2219) 16 U/L LIPID [id number] 00:00:00 Test Item Value Reference Range Interpretation Comments CHOLESTEROL (test code = 2210) 166 MG/DL TRIGLYCERIDES (test code = 2232) 72 MG/DL HDL CHOLESTEROL (test code = 2220) 47 MG/DL CALCULATED LDL CHOL (test code = 105 MG/DL 2236) RISK RATIO LDL/HDL (test code = 2.23 RATIO 2238) LIPID [id number] 00:00:00 Test Item Value Reference Range Interpretation Comments CHOLESTEROL (test code = 2210) 166 MG/DL TRIGLYCERIDES (test code = 2232) 72 MG/DL HDL CHOLESTEROL (test code = 2220) 47 MG/DL CALCULATED LDL CHOL (test code = 105 MG/DL 2236) RISK RATIO LDL/HDL (test code = 2.23 RATIO 2238) [id number] 00:00:00 Test Item Value Reference Range Interpretation Comments TSH (test code = 2821) 1.2 UIU/ML [id number] 00:00:00 Test Item Value Reference Range Interpretation Comments TSH (test code = 2821) 1.2 UIU/ML [id number] 00:00:00 Test Item Value Reference Range Interpretation Comments TSH (test code = 2821) 1.2 UIU/ML COMPREHENSIVE METABOLIC [id number] 00:00:00 Test Item Value Reference Range Interpretation Comments GLUCOSE (test code = 2217) 100 MG/DL BUN (test code = 2208) 10 MG/DL CREATININE (test code = 2214) 0.61 MG/DL eGFR AMER. (test code 134 ML/MIN/1.73 = 85657) eGFR NON- AMER. (test 116 ML/MIN/1.73 code = 27995) CALCULATED BUN/CREAT (test 16 RATIO code = [...] code = 2219) 16 U/L COMPREHENSIVE METABOLIC [id number] 00:00:00 Test Item Value Reference Range Interpretation Comments GLUCOSE (test code = 2217) 100 MG/DL BUN (test code = 2208) 10 MG/DL CREATININE (test code = 2214) 0.61 MG/DL eGFR AMER. (test code 134 ML/MIN/1.73 = 08559) eGFR NON- AMER. (test 116 ML/MIN/1.73 code = 68655) CALCULATED BUN/CREAT (test 16 RATIO code = [...] (test code = 2219) 16 U/L LIPID [id number] 00:00:00 Test Item Value Reference Range Interpretation Comments CHOLESTEROL (test code = 2210) 166 MG/DL TRIGLYCERIDES (test code = 2232) 72 MG/DL HDL CHOLESTEROL (test code = 2220) 47 MG/DL CALCULATED LDL CHOL (test code = 105 MG/DL 2236) RISK RATIO LDL/HDL (test code = 2.23 RATIO 2238) LIPID [id number] 00:00:00 Test Item Value Reference Range Interpretation Comments CHOLESTEROL (test code = 2210) 166 MG/DL TRIGLYCERIDES (test code = 2232) 72 MG/DL HDL CHOLESTEROL (test code = 2220) 47 MG/DL CALCULATED LDL CHOL (test code = 105 MG/DL 2236) RISK RATIO LDL/HDL (test code = 2.23 RATIO 2238) [id number] 00:00:00 Test Item Value Reference Range Interpretation Comments TSH (test code = 2821) 1.2 UIU/ML [id number] 00:00:00 Test Item Value Reference Range Interpretation Comments TSH (test code = 2821) 1.2 UIU/ML [id number] 00:00:00 Test Item Value Reference Range Interpretation Comments TSH (test code = 2821) 1.2 UIU/ML CBC W/AUTO [id number] 00:00:00 Test Item Value Reference Range Interpretation [...] code = 1015) 243 K/UL CBC W/AUTO [id number] 00:00:00 Test Item Value Reference Range Interpretation [...] code = 1015) 243 K/UL CBC W/AUTO [id number] 00:00:00 Test Item Value Reference Range Interpretation [...] (test code = 1015) 243 K/UL HEMOGLOBIN [id number] 00:00:00 Test Item Value Reference Range Interpretation Comments HEMOGLOBIN A1c (test code = 31757) 6.4 % HEMOGLOBIN [id number] 00:00:00 Test Item Value Reference Range Interpretation Comments HEMOGLOBIN A1c (test code = 86883) 6.4 % HEMOGLOBIN [id number] 00:00:00 Test Item Value Reference Range Interpretation Comments HEMOGLOBIN A1c (test code = 87073) 6.4 % CBC W/AUTO [id number] 00:00:00 Test Item Value Reference Range Interpretation [...] code = 1015) 243 K/UL CBC W/AUTO [id number] 00:00:00 Test Item Value Reference Range Interpretation [...] code = 1015) 243 K/UL CBC W/AUTO [id number] 00:00:00 Test Item Value Reference Range Interpretation [...] (test code = 1015) 243 K/UL HEMOGLOBIN [id number] 00:00:00 Test Item Value Reference Range Interpretation Comments HEMOGLOBIN A1c (test code = 48546) 6.4 % HEMOGLOBIN [id number] 00:00:00 Test Item Value Reference Range Interpretation Comments HEMOGLOBIN A1c (test code = 30709) 6.4 % HEMOGLOBIN [id number] 00:00:00 Test Item Value Reference Range Interpretation Comments HEMOGLOBIN A1c (test code = 26948) 6.4 % CBC W/AUTO [id number] 00:00:00 Test Item Value Reference Range Interpretation [...] code = 1015) 243 K/UL CBC W/AUTO [id number] 00:00:00 Test Item Value Reference Range Interpretation [...] code = 1015) 243 K/UL CBC W/AUTO [id number] 00:00:00 Test Item Value Reference Range Interpretation [...] (test code = 1015) 243 K/UL HEMOGLOBIN [id number] 00:00:00 Test Item Value Reference Range Interpretation Comments HEMOGLOBIN A1c (test code = 12980) 6.4 % HEMOGLOBIN [id number] 00:00:00 Test Item Value Reference Range Interpretation Comments HEMOGLOBIN A1c (test code = 56705) 6.4 % HEMOGLOBIN [id number] 00:00:00 Test Item Value Reference Range Interpretation Comments HEMOGLOBIN A1c (test code = 60548) 6.4 % CBC W/AUTO [id number] 00:00:00 Test Item Value Reference Range Interpretation [...] code = 1015) 243 K/UL CBC W/AUTO [id number] 00:00:00 Test Item Value Reference Range Interpretation [...] code = 1015) 243 K/UL CBC W/AUTO [id number] 00:00:00 Test Item Value Reference Range Interpretation [...] (test code = 1015) 243 K/UL HEMOGLOBIN [id number] 00:00:00 Test Item Value Reference Range Interpretation Comments HEMOGLOBIN A1c (test code = 66894) 6.4 % HEMOGLOBIN [id number] 00:00:00 Test Item Value Reference Range Interpretation Comments HEMOGLOBIN A1c (test code = 17099) 6.4 % HEMOGLOBIN [id number] 00:00:00 Test Item Value Reference Range Interpretation Comments HEMOGLOBIN A1c (test code = 59499) 6.4 % CBC W/AUTO [id number] 00:00:00 Test Item Value Reference Range Interpretation [...] code = 1015) 243 K/UL CBC W/AUTO [id number] 00:00:00 Test Item Value Reference Range Interpretation [...] code = 1015) 243 K/UL CBC W/AUTO [id number] 00:00:00 Test Item Value Reference Range Interpretation [...] (test code = 1015) 243 K/UL HEMOGLOBIN [id number] 00:00:00 Test Item Value Reference Range Interpretation Comments HEMOGLOBIN A1c (test code = 26415) 6.4 % HEMOGLOBIN [id number] 00:00:00 Test Item Value Reference Range Interpretation Comments HEMOGLOBIN A1c (test code = 46418) 6.4 % HEMOGLOBIN [id number] 00:00:00 Test Item Value Reference Range Interpretation Comments HEMOGLOBIN A1c (test code = 16546) 6.4 % CBC W/AUTO [id number] 00:00:00 Test Item Value Reference Range Interpretation [...] code = 1015) 243 K/UL CBC W/AUTO [id number] 00:00:00 Test Item Value Reference Range Interpretation [...] code = 1015) 243 K/UL CBC W/AUTO [id number] 00:00:00 Test Item Value Reference Range Interpretation [...] (test code = 1015) 243 K/UL HEMOGLOBIN [id number] 00:00:00 Test Item Value Reference Range Interpretation Comments HEMOGLOBIN A1c (test code = 16875) 6.4 % HEMOGLOBIN [id number] 00:00:00 Test Item Value Reference Range Interpretation Comments HEMOGLOBIN A1c (test code = 05464) 6.4 % HEMOGLOBIN [id number] 00:00:00 Test Item Value Reference Range Interpretation Comments HEMOGLOBIN A1c (test code = 30141) 6.4 % CBC W/AUTO [id number] 00:00:00 Test Item Value Reference Range Interpretation [...] code = 1015) 243 K/UL CBC W/AUTO [id number] 00:00:00 Test Item Value Reference Range Interpretation [...] code = 1015) 243 K/UL CBC W/AUTO [id number] 00:00:00 Test Item Value Reference Range Interpretation [...] (test code = 1015) 243 K/UL HEMOGLOBIN [id number] 00:00:00 Test Item Value Reference Range Interpretation Comments HEMOGLOBIN A1c (test code = 68430) 6.4 % HEMOGLOBIN [id number] 00:00:00 Test Item Value Reference Range Interpretation Comments HEMOGLOBIN A1c (test code = 93925) 6.4 % HEMOGLOBIN [id number] 00:00:00 Test Item Value Reference Range Interpretation Comments HEMOGLOBIN A1c (test code = 02333) 6.4 % CBC W/AUTO [id number] 00:00:00 Test Item Value Reference Range Interpretation [...] code = 1015) 243 K/UL CBC W/AUTO [id number] 00:00:00 Test Item Value Reference Range Interpretation [...] (test code = 1015) 243 K/UL HEMOGLOBIN [id number] 00:00:00 Test Item Value Reference Range Interpretation Comments HEMOGLOBIN A1c (test code = 62479) 6.4 % HEMOGLOBIN [id number] 00:00:00 Test Item Value Reference Range Interpretation Comments HEMOGLOBIN A1c (test code = 52157) 6.4 % CBC W/AUTO [id number] 00:00:00 Test Item Value Reference Range Interpretation [...] code = 1015) 243 K/UL CBC W/AUTO [id number] 00:00:00 Test Item Value Reference Range Interpretation [...] code = 1015) 243 K/UL CBC W/AUTO [id number] 00:00:00 Test Item Value Reference Range Interpretation [...] (test code = 1015) 243 K/UL HEMOGLOBIN [id number] 00:00:00 Test Item Value Reference Range Interpretation Comments HEMOGLOBIN A1c (test code = 73783) 6.4 % HEMOGLOBIN [id number] 00:00:00 Test Item Value Reference Range Interpretation Comments HEMOGLOBIN A1c (test code = 14706) 6.4 % HEMOGLOBIN [id number] 00:00:00 Test Item Value Reference Range Interpretation Comments HEMOGLOBIN A1c (test code = 24703) 6.4 % CBC W/AUTO [id number] 00:00:00 Test Item Value Reference Range Interpretation [...] code = 1015) 243 K/UL CBC W/AUTO [id number] 00:00:00 Test Item Value Reference Range Interpretation [...] code = 1015) 243 K/UL CBC W/AUTO [id number] 00:00:00 Test Item Value Reference Range Interpretation [...] (test code = 1015) 243 K/UL HEMOGLOBIN [id number] 00:00:00 Test Item Value Reference Range Interpretation Comments HEMOGLOBIN A1c (test code = 53297) 6.4 % HEMOGLOBIN [id number] 00:00:00 Test Item Value Reference Range Interpretation Comments HEMOGLOBIN A1c (test code = 91498) 6.4 % HEMOGLOBIN [id number] 00:00:00 Test Item Value Reference Range Interpretation Comments HEMOGLOBIN A1c (test code = 50273) 6.4 % CBC W/AUTO [id number] 00:00:00 Test Item Value Reference Range Interpretation [...] code = 1015) 243 K/UL CBC W/AUTO [id number] 00:00:00 Test Item Value Reference Range Interpretation [...] code = 1015) 243 K/UL CBC W/AUTO [id number] 00:00:00 Test Item Value Reference Range Interpretation [...] (test code = 1015) 243 K/UL HEMOGLOBIN [id number] 00:00:00 Test Item Value Reference Range Interpretation Comments HEMOGLOBIN A1c (test code = 90755) 6.4 % HEMOGLOBIN [id number] 00:00:00 Test Item Value Reference Range Interpretation Comments HEMOGLOBIN A1c (test code = 31150) 6.4 % HEMOGLOBIN [id number] 00:00:00 Test Item Value Reference Range Interpretation Comments HEMOGLOBIN A1c (test code = 46829) 6.4 % CHLAMYDIA, AMPLIFIED, [id number] 00:00:00 Test Item Value Reference Range Interpretation Comments CHLAMYDIA, AMPLIFIED (test code = NEGATIVE 31770) CHLAMYDIA, AMPLIFIED, [id number] 00:00:00 Test Item Value Reference Range Interpretation Comments CHLAMYDIA, AMPLIFIED (test code = NEGATIVE 17882) GC, AMPLIFIED, [id number] 00:00:00 Test Item Value Reference Range Interpretation Comments GONORRHEA, AMPLIFIED (test code = NEGATIVE 14857) GC, AMPLIFIED, [id number] 00:00:00 Test Item Value Reference Range Interpretation Comments GONORRHEA, AMPLIFIED (test code = NEGATIVE 77923) HIV AB/AG COMBO RFLX [id number] 00:00:00 Test Item Value Reference Range Interpretation Comments HIV AB/AG COMBO RFLX CONF (test NON-REACTIVE code = 3514) HIV AB/AG COMBO RFLX [id number] 00:00:00 Test Item Value Reference Range Interpretation Comments HIV AB/AG COMBO RFLX CONF (test NON-REACTIVE code = 3514) [id number] 00:00:00 Test Item Value Reference Range Interpretation Comments RPR RESULT (test code = NON-REACTIVE 3501) RPR TITER (test code = 3500) NOT INDIC. TITER [id number] 00:00:00 Test Item Value Reference Range Interpretation Comments RPR RESULT (test code = NON-REACTIVE 3501) RPR TITER (test code = 3500) NOT INDIC. TITER [id number] 00:00:00 Test Item Value Reference Range Interpretation [...] INTERPRETATION HEPATITIS B: (NOTE) (test code = 62353) INTERPRETATION HEPATITIS C: (NOTE) (test code = 97925) HEPATITIS PROFILE (A,B,C)[id number] 00:00:00 Test Item Value [...] INTERPRETATION HEPATITIS B: (NOTE) (test code = 32451) INTERPRETATION HEPATITIS C: (NOTE) (test code = 18225) COMPREHENSIVE METABOLIC [id number] 00:00:00 Test Item Value Reference Range Interpretation Comments GLUCOSE (test code = 2217) 105 MG/DL BUN (test code = 2208) 11 MG/DL CREATININE (test code = 2214) 0.80 MG/DL eGFR AMER. (test code 109 ML/MIN/1.73 = 41851) eGFR NON- AMER. (test 94 ML/MIN/1.73 code = 41293) CALCULATED BUN/CREAT (test 14 RATIO code = [...] code = 2219) 14 U/L COMPREHENSIVE METABOLIC [id number] 00:00:00 Test Item Value Reference Range Interpretation Comments GLUCOSE (test code = 2217) 105 MG/DL BUN (test code = 2208) 11 MG/DL CREATININE (test code = 2214) 0.80 MG/DL eGFR AMER. (test code 109 ML/MIN/1.73 = 06723) eGFR NON- AMER. (test 94 ML/MIN/1.73 code = 34140) CALCULATED BUN/CREAT (test 14 RATIO code = [...] (test code = 2219) 14 U/L LIPID [id number] 00:00:00 Test Item Value Reference Range Interpretation Comments CHOLESTEROL (test code = 2210) 211 MG/DL TRIGLYCERIDES (test code = 2232) 209 MG/DL HDL CHOLESTEROL (test code = 2220) 38 MG/DL CALCULATED LDL CHOL (test code = 131 MG/DL 2236) RISK RATIO LDL/HDL (test code = 3.45 RATIO 2238) LIPID [id number] 00:00:00 Test Item Value Reference Range Interpretation Comments CHOLESTEROL (test code = 2210) 211 MG/DL TRIGLYCERIDES (test code = 2232) 209 MG/DL HDL CHOLESTEROL (test code = 2220) 38 MG/DL CALCULATED LDL CHOL (test code = 131 MG/DL 2236) RISK RATIO LDL/HDL (test code = 3.45 RATIO 2238) CBC W/AUTO [id number] 00:00:00 Test Item Value Reference Range Interpretation [...] code = 1015) 254 K/UL CBC W/AUTO [id number] 00:00:00 Test Item Value Reference Range Interpretation [...] code = 1015) 254 K/UL CBC W/AUTO [id number] 00:00:00 Test Item Value Reference Range Interpretation [...] (test code = 1015) 254 K/UL HEMOGLOBIN [id number] 00:00:00 Test Item Value Reference Range Interpretation Comments HEMOGLOBIN A1c (test code = 08894) 6.9 % HEMOGLOBIN [id number] 00:00:00 Test Item Value Reference Range Interpretation Comments HEMOGLOBIN A1c (test code = 34027) 6.9 % HEMOGLOBIN [id number] 00:00:00 Test Item Value Reference Range Interpretation Comments HEMOGLOBIN A1c (test code = 71107) 6.9 % [id number] 00:00:00 Test Item Value Reference Range Interpretation Comments TSH (test code = 2821) 0.5 UIU/ML [id number] 00:00:00 Test Item Value Reference Range Interpretation Comments TSH (test code = 2821) 0.5 UIU/ML [id number] 00:00:00 Test Item Value Reference Range Interpretation Comments TSH (test code = 2821) 0.5 UIU/ML HEPATITIS A IgM [REFLEX]2015-06-24 00:00:00 Test Item Value Reference Range Interpretation Comments HEPATITIS A IgM (test code = NON-REACTIVE 2728) CHLAMYDIA, AMPLIFIED, [id number] 00:00:00 Test Item Value Reference Range Interpretation Comments CHLAMYDIA, AMPLIFIED (test code = NEGATIVE 89149) CHLAMYDIA, AMPLIFIED, [id number] 00:00:00 Test Item Value Reference Range Interpretation Comments CHLAMYDIA, AMPLIFIED (test code = NEGATIVE 56615) GC, AMPLIFIED, [id number] 00:00:00 Test Item Value Reference Range Interpretation Comments GONORRHEA, AMPLIFIED (test code = NEGATIVE 45590) GC, AMPLIFIED, [id number] 00:00:00 Test Item Value Reference Range Interpretation Comments GONORRHEA, AMPLIFIED (test code = NEGATIVE 54853) HIV AB/AG COMBO RFLX [id number] 00:00:00 Test Item Value Reference Range Interpretation Comments HIV AB/AG COMBO RFLX CONF (test NON-REACTIVE code = 3514) HIV AB/AG COMBO RFLX [id number] 00:00:00 Test Item Value Reference Range Interpretation Comments HIV AB/AG COMBO RFLX CONF (test NON-REACTIVE code = 3514) [id number] 00:00:00 Test Item Value Reference Range Interpretation Comments RPR RESULT (test code = NON-REACTIVE 3501) RPR TITER (test code = 3500) NOT INDIC. TITER [id number] 00:00:00 Test Item Value Reference Range Interpretation Comments RPR RESULT (test code = NON-REACTIVE 3501) RPR TITER (test code = 3500) NOT INDIC. TITER [id number] 00:00:00 Test Item Value Reference Range Interpretation [...] INTERPRETATION HEPATITIS B: (NOTE) (test code = 63020) INTERPRETATION HEPATITIS C: (NOTE) (test code = 18204) HEPATITIS PROFILE (A,B,C)2015-06-24 00:00:00 Test Item Value [...] INTERPRETATION HEPATITIS B: (NOTE) (test code = 07906) INTERPRETATION HEPATITIS C: (NOTE) (test code = 40545) COMPREHENSIVE METABOLIC [id number] 00:00:00 Test Item Value Reference Range Interpretation Comments GLUCOSE (test code = 2217) 105 MG/DL BUN (test code = 2208) 11 MG/DL CREATININE (test code = 2214) 0.80 MG/DL eGFR AMER. (test code 109 ML/MIN/1.73 = 50672) eGFR NON- AMER. (test 94 ML/MIN/1.73 code = 19903) CALCULATED BUN/CREAT (test 14 RATIO code = [...] code = 2219) 14 U/L COMPREHENSIVE METABOLIC [id number] 00:00:00 Test Item Value Reference Range Interpretation Comments GLUCOSE (test code = 2217) 105 MG/DL BUN (test code = 2208) 11 MG/DL CREATININE (test code = 2214) 0.80 MG/DL eGFR AMER. (test code 109 ML/MIN/1.73 = 62999) eGFR NON- AMER. (test 94 ML/MIN/1.73 code = 30820) CALCULATED BUN/CREAT (test 14 RATIO code = [...] (test code = 2219) 14 U/L LIPID [id number] 00:00:00 Test Item Value Reference Range Interpretation Comments CHOLESTEROL (test code = 2210) 211 MG/DL TRIGLYCERIDES (test code = 2232) 209 MG/DL HDL CHOLESTEROL (test code = 2220) 38 MG/DL CALCULATED LDL CHOL (test code = 131 MG/DL 2237) RISK RATIO LDL/HDL (test code = 3.45 RATIO 2238) LIPID [id number] 00:00:00 Test Item Value Reference Range Interpretation Comments CHOLESTEROL (test code = 2210) 211 MG/DL TRIGLYCERIDES (test code = 2232) 209 MG/DL HDL CHOLESTEROL (test code = 2220) 38 MG/DL CALCULATED LDL CHOL (test code = 131 MG/DL 2237) RISK RATIO LDL/HDL (test code = 3.45 RATIO 2238) CBC W/AUTO [id number] 00:00:00 Test Item Value Reference Range Interpretation [...] code = 1015) 254 K/UL CBC W/AUTO [id number] 00:00:00 Test Item Value Reference Range Interpretation [...] code = 1015) 254 K/UL CBC W/AUTO [id number] 00:00:00 Test Item Value Reference Range Interpretation [...] (test code = 1015) 254 K/UL HEMOGLOBIN [id number] 00:00:00 Test Item Value Reference Range Interpretation Comments HEMOGLOBIN A1c (test code = 24265) 6.9 % HEMOGLOBIN [id number] 00:00:00 Test Item Value Reference Range Interpretation Comments HEMOGLOBIN A1c (test code = 94887) 6.9 % HEMOGLOBIN [id number] 00:00:00 Test Item Value Reference Range Interpretation Comments HEMOGLOBIN A1c (test code = 73040) 6.9 % [id number] 00:00:00 Test Item Value Reference Range Interpretation Comments TSH (test code = 2821) 0.5 UIU/ML [id number] 00:00:00 Test Item Value Reference Range Interpretation Comments TSH (test code = 2821) 0.5 UIU/ML [id number] 00:00:00 Test Item Value Reference Range Interpretation Comments TSH (test code = 2821) 0.5 UIU/ML HEPATITIS A IgM [REFLEX]2015-06-24 00:00:00 Test Item Value Reference Range Interpretation Comments HEPATITIS A IgM (test code = NON-REACTIVE 2728) CHLAMYDIA, AMPLIFIED, [id number] 00:00:00 Test Item Value Reference Range Interpretation Comments CHLAMYDIA, AMPLIFIED (test code = NEGATIVE 45655) CHLAMYDIA, AMPLIFIED, [id number] 00:00:00 Test Item Value Reference Range Interpretation Comments CHLAMYDIA, AMPLIFIED (test code = NEGATIVE 17798) GC, AMPLIFIED, [id number] 00:00:00 Test Item Value Reference Range Interpretation Comments GONORRHEA, AMPLIFIED (test code = NEGATIVE 74059) GC, AMPLIFIED, [id number] 00:00:00 Test Item Value Reference Range Interpretation Comments GONORRHEA, AMPLIFIED (test code = NEGATIVE 98124) HIV AB/AG COMBO RFLX [id number] 00:00:00 Test Item Value Reference Range Interpretation Comments HIV AB/AG COMBO RFLX CONF (test NON-REACTIVE code = 3514) HIV AB/AG COMBO RFLX [id number] 00:00:00 Test Item Value Reference Range Interpretation Comments HIV AB/AG COMBO RFLX CONF (test NON-REACTIVE code = 3514) [id number] 00:00:00 Test Item Value Reference Range Interpretation Comments RPR RESULT (test code = NON-REACTIVE 3501) RPR TITER (test code = 3500) NOT INDIC. TITER [id number] 00:00:00 Test Item Value Reference Range Interpretation Comments RPR RESULT (test code = NON-REACTIVE 3501) RPR TITER (test code = 3500) NOT INDIC. TITER [id number] 00:00:00 Test Item Value Reference Range Interpretation [...] INTERPRETATION HEPATITIS B: (NOTE) (test code = 30010) INTERPRETATION HEPATITIS C: (NOTE) (test code = 19243) HEPATITIS PROFILE (A,B,C)2015-06-24 00:00:00 Test Item Value [...] INTERPRETATION HEPATITIS B: (NOTE) (test code = 16989) INTERPRETATION HEPATITIS C: (NOTE) (test code = 97622) COMPREHENSIVE METABOLIC [id number] 00:00:00 Test Item Value Reference Range Interpretation Comments GLUCOSE (test code = 2217) 105 MG/DL BUN (test code = 2208) 11 MG/DL CREATININE (test code = 2214) 0.80 MG/DL eGFR AMER. (test code 109 ML/MIN/1.73 = 13034) eGFR NON- AMER. (test 94 ML/MIN/1.73 code = 21408) CALCULATED BUN/CREAT (test 14 RATIO code = [...] code = 2219) 14 U/L COMPREHENSIVE METABOLIC [id number] 00:00:00 Test Item Value Reference Range Interpretation Comments GLUCOSE (test code = 2217) 105 MG/DL BUN (test code = 2208) 11 MG/DL CREATININE (test code = 2214) 0.80 MG/DL eGFR AMER. (test code 109 ML/MIN/1.73 = 04513) eGFR NON- AMER. (test 94 ML/MIN/1.73 code = 11644) CALCULATED BUN/CREAT (test 14 RATIO code = [...] (test code = 2219) 14 U/L LIPID [id number] 00:00:00 Test Item Value Reference Range Interpretation Comments CHOLESTEROL (test code = 2210) 211 MG/DL TRIGLYCERIDES (test code = 2232) 209 MG/DL HDL CHOLESTEROL (test code = 2220) 38 MG/DL CALCULATED LDL CHOL (test code = 131 MG/DL 2236) RISK RATIO LDL/HDL (test code = 3.45 RATIO 2238) LIPID [id number] 00:00:00 Test Item Value Reference Range Interpretation Comments CHOLESTEROL (test code = 2210) 211 MG/DL TRIGLYCERIDES (test code = 2232) 209 MG/DL HDL CHOLESTEROL (test code = 2220) 38 MG/DL CALCULATED LDL CHOL (test code = 131 MG/DL 7) RISK RATIO LDL/HDL (test code = 3.45 RATIO 2238) CBC W/AUTO [id number] 00:00:00 Test Item Value Reference Range Interpretation [...] code = 1015) 254 K/UL CBC W/AUTO [id number] 00:00:00 Test Item Value Reference Range Interpretation [...] code = 1015) 254 K/UL CBC W/AUTO [id number] 00:00:00 Test Item Value Reference Range Interpretation [...] (test code = 1015) 254 K/UL HEMOGLOBIN [id number] 00:00:00 Test Item Value Reference Range Interpretation Comments HEMOGLOBIN A1c (test code = 69846) 6.9 % HEMOGLOBIN [id number] 00:00:00 Test Item Value Reference Range Interpretation Comments HEMOGLOBIN A1c (test code = 39097) 6.9 % HEMOGLOBIN [id number] 00:00:00 Test Item Value Reference Range Interpretation Comments HEMOGLOBIN A1c (test code = 55885) 6.9 % [id number] 00:00:00 Test Item Value Reference Range Interpretation Comments TSH (test code = 2821) 0.5 UIU/ML [id number] 00:00:00 Test Item Value Reference Range Interpretation Comments TSH (test code = 2821) 0.5 UIU/ML [id number] 00:00:00 Test Item Value Reference Range Interpretation Comments TSH (test code = 2821) 0.5 UIU/ML HEPATITIS A IgM [REFLEX]2015-06-24 00:00:00 Test Item Value Reference Range Interpretation Comments HEPATITIS A IgM (test code = NON-REACTIVE 2728) CHLAMYDIA, AMPLIFIED, [id number] 00:00:00 Test Item Value Reference Range Interpretation Comments CHLAMYDIA, AMPLIFIED (test code = NEGATIVE 15534) CHLAMYDIA, AMPLIFIED, [id number] 00:00:00 Test Item Value Reference Range Interpretation Comments CHLAMYDIA, AMPLIFIED (test code = NEGATIVE 27010) GC, AMPLIFIED, [id number] 00:00:00 Test Item Value Reference Range Interpretation Comments GONORRHEA, AMPLIFIED (test code = NEGATIVE 93778) GC, AMPLIFIED, [id number] 00:00:00 Test Item Value Reference Range Interpretation Comments GONORRHEA, AMPLIFIED (test code = NEGATIVE 23157) HIV AB/AG COMBO RFLX [id number] 00:00:00 Test Item Value Reference Range Interpretation Comments HIV AB/AG COMBO RFLX CONF (test NON-REACTIVE code = 3514) HIV AB/AG COMBO RFLX [id number] 00:00:00 Test Item Value Reference Range Interpretation Comments HIV AB/AG COMBO RFLX CONF (test NON-REACTIVE code = 3514) [id number] 00:00:00 Test Item Value Reference Range Interpretation Comments RPR RESULT (test code = NON-REACTIVE 3501) RPR TITER (test code = 3500) NOT INDIC. TITER [id number] 00:00:00 Test Item Value Reference Range Interpretation Comments RPR RESULT (test code = NON-REACTIVE 3501) RPR TITER (test code = 3500) NOT INDIC. TITER [id number] 00:00:00 Test Item Value Reference Range Interpretation [...] INTERPRETATION HEPATITIS B: (NOTE) (test code = 16289) INTERPRETATION HEPATITIS C: (NOTE) (test code = 75084) HEPATITIS PROFILE (A,B,C)2015-06-24 00:00:00 Test Item Value [...] INTERPRETATION HEPATITIS B: (NOTE) (test code = 16829) INTERPRETATION HEPATITIS C: (NOTE) (test code = 20604) COMPREHENSIVE METABOLIC [id number] 00:00:00 Test Item Value Reference Range Interpretation Comments GLUCOSE (test code = 2217) 105 MG/DL BUN (test code = 2208) 11 MG/DL CREATININE (test code = 2214) 0.80 MG/DL eGFR AMER. (test code 109 ML/MIN/1.73 = 60402) eGFR NON- AMER. (test 94 ML/MIN/1.73 code = 90248) CALCULATED BUN/CREAT (test 14 RATIO code = [...] code = 2219) 14 U/L COMPREHENSIVE METABOLIC [id number] 00:00:00 Test Item Value Reference Range Interpretation Comments GLUCOSE (test code = 2217) 105 MG/DL BUN (test code = 2208) 11 MG/DL CREATININE (test code = 2214) 0.80 MG/DL eGFR AMER. (test code 109 ML/MIN/1.73 = 64928) eGFR NON- AMER. (test 94 ML/MIN/1.73 code = 40701) CALCULATED BUN/CREAT (test 14 RATIO code = [...] (test code = 2219) 14 U/L LIPID [id number] 00:00:00 Test Item Value Reference Range Interpretation Comments CHOLESTEROL (test code = 2210) 211 MG/DL TRIGLYCERIDES (test code = 2232) 209 MG/DL HDL CHOLESTEROL (test code = 2220) 38 MG/DL CALCULATED LDL CHOL (test code = 131 MG/DL 2237) RISK RATIO LDL/HDL (test code = 3.45 RATIO 2238) LIPID [id number] 00:00:00 Test Item Value Reference Range Interpretation Comments CHOLESTEROL (test code = 2210) 211 MG/DL TRIGLYCERIDES (test code = 2232) 209 MG/DL HDL CHOLESTEROL (test code = 2220) 38 MG/DL CALCULATED LDL CHOL (test code = 131 MG/DL 2237) RISK RATIO LDL/HDL (test code = 3.45 RATIO 2238) CBC W/AUTO [id number] 00:00:00 Test Item Value Reference Range Interpretation [...] code = 1015) 254 K/UL CBC W/AUTO [id number] 00:00:00 Test Item Value Reference Range Interpretation [...] code = 1015) 254 K/UL CBC W/AUTO [id number] 00:00:00 Test Item Value Reference Range Interpretation [...] (test code = 1015) 254 K/UL HEMOGLOBIN [id number] 00:00:00 Test Item Value Reference Range Interpretation Comments HEMOGLOBIN A1c (test code = 87591) 6.9 % HEMOGLOBIN [id number] 00:00:00 Test Item Value Reference Range Interpretation Comments HEMOGLOBIN A1c (test code = 56957) 6.9 % HEMOGLOBIN [id number] 00:00:00 Test Item Value Reference Range Interpretation Comments HEMOGLOBIN A1c (test code = 55645) 6.9 % [id number] 00:00:00 Test Item Value Reference Range Interpretation Comments TSH (test code = 2821) 0.5 UIU/ML [id number] 00:00:00 Test Item Value Reference Range Interpretation Comments TSH (test code = 2821) 0.5 UIU/ML [id number] 00:00:00 Test Item Value Reference Range Interpretation Comments TSH (test code = 2821) 0.5 UIU/ML HEPATITIS A IgM [REFLEX]2015-06-24 00:00:00 Test Item Value Reference Range Interpretation Comments HEPATITIS A IgM (test code = NON-REACTIVE 7022) CHLAMYDIA, AMPLIFIED, [id number] 00:00:00 Test Item Value Reference Range Interpretation Comments CHLAMYDIA, AMPLIFIED (test code = NEGATIVE 32717) CHLAMYDIA, AMPLIFIED, [id number] 00:00:00 Test Item Value Reference Range Interpretation Comments CHLAMYDIA, AMPLIFIED (test code = NEGATIVE 99364) GC, AMPLIFIED, [id number] 00:00:00 Test Item Value Reference Range Interpretation Comments GONORRHEA, AMPLIFIED (test code = NEGATIVE 04918) GC, AMPLIFIED, [id number] 00:00:00 Test Item Value Reference Range Interpretation Comments GONORRHEA, AMPLIFIED (test code = NEGATIVE 16325) HIV AB/AG COMBO RFLX [id number] 00:00:00 Test Item Value Reference Range Interpretation Comments HIV AB/AG COMBO RFLX CONF (test NON-REACTIVE code = 3514) HIV AB/AG COMBO RFLX [id number] 00:00:00 Test Item Value Reference Range Interpretation Comments HIV AB/AG COMBO RFLX CONF (test NON-REACTIVE code = 3514) [id number] 00:00:00 Test Item Value Reference Range Interpretation Comments RPR RESULT (test code = NON-REACTIVE 3501) RPR TITER (test code = 3500) NOT INDIC. TITER [id number] 00:00:00 Test Item Value Reference Range Interpretation Comments RPR RESULT (test code = NON-REACTIVE 3501) RPR TITER (test code = 3500) NOT INDIC. TITER [id number] 00:00:00 Test Item Value Reference Range Interpretation [...] INTERPRETATION HEPATITIS B: (NOTE) (test code = 68146) INTERPRETATION HEPATITIS C: (NOTE) (test code = 07986) HEPATITIS PROFILE (A,B,C)2015-06-24 00:00:00 Test Item Value [...] INTERPRETATION HEPATITIS B: (NOTE) (test code = 14770) INTERPRETATION HEPATITIS C: (NOTE) (test code = 62900) COMPREHENSIVE METABOLIC [id number] 00:00:00 Test Item Value Reference Range Interpretation Comments GLUCOSE (test code = 2217) 105 MG/DL BUN (test code = 2208) 11 MG/DL CREATININE (test code = 2214) 0.80 MG/DL eGFR AMER. (test code 109 ML/MIN/1.73 = 63738) eGFR NON- AMER. (test 94 ML/MIN/1.73 code = 06846) CALCULATED BUN/CREAT (test 14 RATIO code = [...] code = 2219) 14 U/L COMPREHENSIVE METABOLIC [id number] 00:00:00 Test Item Value Reference Range Interpretation Comments GLUCOSE (test code = 2217) 105 MG/DL BUN (test code = 2208) 11 MG/DL CREATININE (test code = 2214) 0.80 MG/DL eGFR AMER. (test code 109 ML/MIN/1.73 = 30338) eGFR NON- AMER. (test 94 ML/MIN/1.73 code = 70022) CALCULATED BUN/CREAT (test 14 RATIO code = [...] (test code = 2219) 14 U/L LIPID [id number] 00:00:00 Test Item Value Reference Range Interpretation Comments CHOLESTEROL (test code = 2210) 211 MG/DL TRIGLYCERIDES (test code = 2232) 209 MG/DL HDL CHOLESTEROL (test code = 2220) 38 MG/DL CALCULATED LDL CHOL (test code = 131 MG/DL 2237) RISK RATIO LDL/HDL (test code = 3.45 RATIO 2238) LIPID [id number] 00:00:00 Test Item Value Reference Range Interpretation Comments CHOLESTEROL (test code = 2210) 211 MG/DL TRIGLYCERIDES (test code = 2232) 209 MG/DL HDL CHOLESTEROL (test code = 2220) 38 MG/DL CALCULATED LDL CHOL (test code = 131 MG/DL 2237) RISK RATIO LDL/HDL (test code = 3.45 RATIO 2238) CBC W/AUTO [id number] 00:00:00 Test Item Value Reference Range Interpretation [...] code = 1015) 254 K/UL CBC W/AUTO [id number] 00:00:00 Test Item Value Reference Range Interpretation [...] code = 1015) 254 K/UL CBC W/AUTO [id number] 00:00:00 Test Item Value Reference Range Interpretation [...] (test code = 1015) 254 K/UL HEMOGLOBIN [id number] 00:00:00 Test Item Value Reference Range Interpretation Comments HEMOGLOBIN A1c (test code = 84147) 6.9 % HEMOGLOBIN [id number] 00:00:00 Test Item Value Reference Range Interpretation Comments HEMOGLOBIN A1c (test code = 47233) 6.9 % HEMOGLOBIN [id number] 00:00:00 Test Item Value Reference Range Interpretation Comments HEMOGLOBIN A1c (test code = 93944) 6.9 % [id number] 00:00:00 Test Item Value Reference Range Interpretation Comments TSH (test code = 2821) 0.5 UIU/ML [id number] 00:00:00 Test Item Value Reference Range Interpretation Comments TSH (test code = 2821) 0.5 UIU/ML [id number] 00:00:00 Test Item Value Reference Range Interpretation Comments TSH (test code = 2821) 0.5 UIU/ML HEPATITIS A IgM [REFLEX]2015-06-24 00:00:00 Test Item Value Reference Range Interpretation Comments HEPATITIS A IgM (test code = NON-REACTIVE 2728) CHLAMYDIA, AMPLIFIED, [id number] 00:00:00 Test Item Value Reference Range Interpretation Comments CHLAMYDIA, AMPLIFIED (test code = NEGATIVE 80324) CHLAMYDIA, AMPLIFIED, [id number] 00:00:00 Test Item Value Reference Range Interpretation Comments CHLAMYDIA, AMPLIFIED (test code = NEGATIVE 69211) GC, AMPLIFIED, [id number] 00:00:00 Test Item Value Reference Range Interpretation Comments GONORRHEA, AMPLIFIED (test code = NEGATIVE 26901) GC, AMPLIFIED, [id number] 00:00:00 Test Item Value Reference Range Interpretation Comments GONORRHEA, AMPLIFIED (test code = NEGATIVE 97957) HIV AB/AG COMBO RFLX [id number] 00:00:00 Test Item Value Reference Range Interpretation Comments HIV AB/AG COMBO RFLX CONF (test NON-REACTIVE code = 3514) HIV AB/AG COMBO RFLX [id number] 00:00:00 Test Item Value Reference Range Interpretation Comments HIV AB/AG COMBO RFLX CONF (test NON-REACTIVE code = 3514) [id number] 00:00:00 Test Item Value Reference Range Interpretation Comments RPR RESULT (test code = NON-REACTIVE 3501) RPR TITER (test code = 3500) NOT INDIC. TITER [id number] 00:00:00 Test Item Value Reference Range Interpretation Comments RPR RESULT (test code = NON-REACTIVE 3501) RPR TITER (test code = 3500) NOT INDIC. TITER [id number] 00:00:00 Test Item Value Reference Range Interpretation [...] INTERPRETATION HEPATITIS B: (NOTE) (test code = 26157) INTERPRETATION HEPATITIS C: (NOTE) (test code = 59014) HEPATITIS PROFILE (A,B,C)2015-06-24 00:00:00 Test Item Value [...] INTERPRETATION HEPATITIS B: (NOTE) (test code = 46003) INTERPRETATION HEPATITIS C: (NOTE) (test code = 51794) COMPREHENSIVE METABOLIC [id number] 00:00:00 Test Item Value Reference Range Interpretation Comments GLUCOSE (test code = 2217) 105 MG/DL BUN (test code = 2208) 11 MG/DL CREATININE (test code = 2214) 0.80 MG/DL eGFR AMER. (test code 109 ML/MIN/1.73 = 36491) eGFR NON- AMER. (test 94 ML/MIN/1.73 code = 92424) CALCULATED BUN/CREAT (test 14 RATIO code = [...] code = 2219) 14 U/L COMPREHENSIVE METABOLIC [id number] 00:00:00 Test Item Value Reference Range Interpretation Comments GLUCOSE (test code = 2217) 105 MG/DL BUN (test code = 2208) 11 MG/DL CREATININE (test code = 2214) 0.80 MG/DL eGFR AMER. (test code 109 ML/MIN/1.73 = 62597) eGFR NON- AMER. (test 94 ML/MIN/1.73 code = 44177) CALCULATED BUN/CREAT (test 14 RATIO code = [...] (test code = 2219) 14 U/L LIPID [id number] 00:00:00 Test Item Value Reference Range Interpretation Comments CHOLESTEROL (test code = 2210) 211 MG/DL TRIGLYCERIDES (test code = 2232) 209 MG/DL HDL CHOLESTEROL (test code = 2220) 38 MG/DL CALCULATED LDL CHOL (test code = 131 MG/DL 2237) RISK RATIO LDL/HDL (test code = 3.45 RATIO 2238) LIPID [id number] 00:00:00 Test Item Value Reference Range Interpretation Comments CHOLESTEROL (test code = 2210) 211 MG/DL TRIGLYCERIDES (test code = 2232) 209 MG/DL HDL CHOLESTEROL (test code = 2220) 38 MG/DL CALCULATED LDL CHOL (test code = 131 MG/DL 2237) RISK RATIO LDL/HDL (test code = 3.45 RATIO 2238) CBC W/AUTO [id number] 00:00:00 Test Item Value Reference Range Interpretation [...] code = 1015) 254 K/UL CBC W/AUTO [id number] 00:00:00 Test Item Value Reference Range Interpretation [...] code = 1015) 254 K/UL CBC W/AUTO [id number] 00:00:00 Test Item Value Reference Range Interpretation [...] (test code = 1015) 254 K/UL HEMOGLOBIN [id number] 00:00:00 Test Item Value Reference Range Interpretation Comments HEMOGLOBIN A1c (test code = 53869) 6.9 % HEMOGLOBIN [id number] 00:00:00 Test Item Value Reference Range Interpretation Comments HEMOGLOBIN A1c (test code = 45466) 6.9 % HEMOGLOBIN [id number] 00:00:00 Test Item Value Reference Range Interpretation Comments HEMOGLOBIN A1c (test code = 61429) 6.9 % [id number] 00:00:00 Test Item Value Reference Range Interpretation Comments TSH (test code = 2821) 0.5 UIU/ML [id number] 00:00:00 Test Item Value Reference Range Interpretation Comments TSH (test code = 2821) 0.5 UIU/ML [id number] 00:00:00 Test Item Value Reference Range Interpretation Comments TSH (test code = 2821) 0.5 UIU/ML HEPATITIS A IgM [REFLEX]2015-06-24 00:00:00 Test Item Value Reference Range Interpretation Comments HEPATITIS A IgM (test code = NON-REACTIVE 3798) CHLAMYDIA, AMPLIFIED, [id number] 00:00:00 Test Item Value Reference Range Interpretation Comments CHLAMYDIA, AMPLIFIED (test code = NEGATIVE 63816) CHLAMYDIA, AMPLIFIED, [id number] 00:00:00 Test Item Value Reference Range Interpretation Comments CHLAMYDIA, AMPLIFIED (test code = NEGATIVE 75153) GC, AMPLIFIED, [id number] 00:00:00 Test Item Value Reference Range Interpretation Comments GONORRHEA, AMPLIFIED (test code = NEGATIVE 47009) GC, AMPLIFIED, [id number] 00:00:00 Test Item Value Reference Range Interpretation Comments GONORRHEA, AMPLIFIED (test code = NEGATIVE 69111) HIV AB/AG COMBO RFLX [id number] 00:00:00 Test Item Value Reference Range Interpretation Comments HIV AB/AG COMBO RFLX CONF (test NON-REACTIVE code = 3514) HIV AB/AG COMBO RFLX [id number] 00:00:00 Test Item Value Reference Range Interpretation Comments HIV AB/AG COMBO RFLX CONF (test NON-REACTIVE code = 3514) [id number] 00:00:00 Test Item Value Reference Range Interpretation Comments RPR RESULT (test code = NON-REACTIVE 3501) RPR TITER (test code = 3500) NOT INDIC. TITER [id number] 00:00:00 Test Item Value Reference Range Interpretation Comments RPR RESULT (test code = NON-REACTIVE 3501) RPR TITER (test code = 3500) NOT INDIC. TITER [id number] 00:00:00 Test Item Value Reference Range Interpretation [...] INTERPRETATION HEPATITIS B: (NOTE) (test code = 80920) INTERPRETATION HEPATITIS C: (NOTE) (test code = 41112) HEPATITIS PROFILE (A,B,C)[id number] 00:00:00 Test Item Value [...] INTERPRETATION HEPATITIS B: (NOTE) (test code = 75765) INTERPRETATION HEPATITIS C: (NOTE) (test code = 49328) COMPREHENSIVE METABOLIC [id number] 00:00:00 Test Item Value Reference Range Interpretation Comments GLUCOSE (test code = 2217) 105 MG/DL BUN (test code = 2208) 11 MG/DL CREATININE (test code = 2214) 0.80 MG/DL eGFR AMER. (test code 109 ML/MIN/1.73 = 46588) eGFR NON- AMER. (test 94 ML/MIN/1.73 code = 22105) CALCULATED BUN/CREAT (test 14 RATIO code = [...] code = 2219) 14 U/L COMPREHENSIVE METABOLIC [id number] 00:00:00 Test Item Value Reference Range Interpretation Comments GLUCOSE (test code = 2217) 105 MG/DL BUN (test code = 2208) 11 MG/DL CREATININE (test code = 2214) 0.80 MG/DL eGFR AMER. (test code 109 ML/MIN/1.73 = 76247) eGFR NON- AMER. (test 94 ML/MIN/1.73 code = 54094) CALCULATED BUN/CREAT (test 14 RATIO code = [...] (test code = 2219) 14 U/L LIPID [id number] 00:00:00 Test Item Value Reference Range Interpretation Comments CHOLESTEROL (test code = 2210) 211 MG/DL TRIGLYCERIDES (test code = 2232) 209 MG/DL HDL CHOLESTEROL (test code = 2220) 38 MG/DL CALCULATED LDL CHOL (test code = 131 MG/DL 2236) RISK RATIO LDL/HDL (test code = 3.45 RATIO 2238) LIPID [id number] 00:00:00 Test Item Value Reference Range Interpretation Comments CHOLESTEROL (test code = 2210) 211 MG/DL TRIGLYCERIDES (test code = 2232) 209 MG/DL HDL CHOLESTEROL (test code = 2220) 38 MG/DL CALCULATED LDL CHOL (test code = 131 MG/DL 7) RISK RATIO LDL/HDL (test code = 3.45 RATIO 2238) CBC W/AUTO [id number] 00:00:00 Test Item Value Reference Range Interpretation [...] code = 1015) 254 K/UL CBC W/AUTO [id number] 00:00:00 Test Item Value Reference Range Interpretation [...] code = 1015) 254 K/UL CBC W/AUTO [id number] 00:00:00 Test Item Value Reference Range Interpretation [...] (test code = 1015) 254 K/UL HEMOGLOBIN [id number] 00:00:00 Test Item Value Reference Range Interpretation Comments HEMOGLOBIN A1c (test code = 91065) 6.9 % HEMOGLOBIN [id number] 00:00:00 Test Item Value Reference Range Interpretation Comments HEMOGLOBIN A1c (test code = 38463) 6.9 % HEMOGLOBIN [id number] 00:00:00 Test Item Value Reference Range Interpretation Comments HEMOGLOBIN A1c (test code = 02506) 6.9 % [id number] 00:00:00 Test Item Value Reference Range Interpretation Comments TSH (test code = 2821) 0.5 UIU/ML [id number] 00:00:00 Test Item Value Reference Range Interpretation Comments TSH (test code = 2821) 0.5 UIU/ML [id number] 00:00:00 Test Item Value Reference Range Interpretation Comments TSH (test code = 2821) 0.5 UIU/ML HEPATITIS A IgM [REFLEX]2015-06-24 00:00:00 Test Item Value Reference Range Interpretation Comments HEPATITIS A IgM (test code = NON-REACTIVE 2728) CHLAMYDIA, AMPLIFIED, [id number] 00:00:00 Test Item Value Reference Range Interpretation Comments CHLAMYDIA, AMPLIFIED (test code = NEGATIVE 99867) GC, AMPLIFIED, [id number] 00:00:00 Test Item Value Reference Range Interpretation Comments GONORRHEA, AMPLIFIED (test code = NEGATIVE 25259) HIV AB/AG COMBO RFLX [id number] 00:00:00 Test Item Value Reference Range Interpretation Comments HIV AB/AG COMBO RFLX CONF (test NON-REACTIVE code = 3514) [id number] 00:00:00 Test Item Value Reference Range Interpretation Comments RPR RESULT (test code = NON-REACTIVE 3501) RPR TITER (test code = 3500) NOT INDIC. TITER CHLAMYDIA, AMPLIFIED, [id number] 00:00:00 Test Item Value Reference Range Interpretation Comments CHLAMYDIA, AMPLIFIED (test code = NEGATIVE 02888) [id number] 00:00:00 Test Item Value Reference Range Interpretation Comments RPR RESULT (test code = NON-REACTIVE 3501) RPR TITER (test code = 3500) NOT INDIC. TITER CHLAMYDIA, AMPLIFIED, [id number] 00:00:00 Test Item Value Reference Range Interpretation Comments CHLAMYDIA, AMPLIFIED (test code = NEGATIVE 67432) GC, AMPLIFIED, [id number] 00:00:00 Test Item Value Reference Range Interpretation Comments GONORRHEA, AMPLIFIED (test code = NEGATIVE 49676) GC, AMPLIFIED, [id number] 00:00:00 Test Item Value Reference Range Interpretation Comments GONORRHEA, AMPLIFIED (test code = NEGATIVE 06310) HIV AB/AG COMBO RFLX [id number] 00:00:00 Test Item Value Reference Range Interpretation Comments HIV AB/AG COMBO RFLX CONF (test NON-REACTIVE code = 3514) HIV AB/AG COMBO RFLX [id number] 00:00:00 Test Item Value Reference Range Interpretation Comments HIV AB/AG COMBO RFLX CONF (test NON-REACTIVE code = 3514) [id number] 00:00:00 Test Item Value Reference Range Interpretation Comments RPR RESULT (test code = NON-REACTIVE 3501) RPR TITER (test code = 3500) NOT INDIC. TITER [id number] 00:00:00 Test Item Value Reference Range Interpretation Comments RPR RESULT (test code = NON-REACTIVE 3501) RPR TITER (test code = 3500) NOT INDIC. TITER [id number] 00:00:00 Test Item Value Reference Range Interpretation [...] INTERPRETATION HEPATITIS B: (NOTE) (test code = 02955) INTERPRETATION HEPATITIS C: (NOTE) (test code = 51042) HEPATITIS PROFILE (A,B,C)2015-06-24 00:00:00 Test Item Value [...] INTERPRETATION HEPATITIS B: (NOTE) (test code = 23991) INTERPRETATION HEPATITIS C: (NOTE) (test code = 82496) HEPATITIS PROFILE (A,B,C)2015-06-24 00:00:00 Test Item Value [...] INTERPRETATION HEPATITIS B: (NOTE) (test code = 82168) INTERPRETATION HEPATITIS C: (NOTE) (test code = 36564) COMPREHENSIVE METABOLIC [id number] 00:00:00 Test Item Value Reference Range Interpretation Comments GLUCOSE (test code = 2217) 105 MG/DL BUN (test code = 2208) 11 MG/DL CREATININE (test code = 2214) 0.80 MG/DL eGFR AMER. (test code 109 ML/MIN/1.73 = 01953) eGFR NON- AMER. (test 94 ML/MIN/1.73 code = 80322) CALCULATED BUN/CREAT (test 14 RATIO code = [...] code = 2219) 14 U/L COMPREHENSIVE METABOLIC [id number] 00:00:00 Test Item Value Reference Range Interpretation Comments GLUCOSE (test code = 2217) 105 MG/DL BUN (test code = 2208) 11 MG/DL CREATININE (test code = 2214) 0.80 MG/DL eGFR AMER. (test code 109 ML/MIN/1.73 = 75330) eGFR NON- AMER. (test 94 ML/MIN/1.73 code = 60072) CALCULATED BUN/CREAT (test 14 RATIO code = [...] (test code = 2219) 14 U/L LIPID [id number] 00:00:00 Test Item Value Reference Range Interpretation Comments CHOLESTEROL (test code = 2210) 211 MG/DL TRIGLYCERIDES (test code = 2232) 209 MG/DL HDL CHOLESTEROL (test code = 2220) 38 MG/DL CALCULATED LDL CHOL (test code = 131 MG/DL 2237) RISK RATIO LDL/HDL (test code = 3.45 RATIO 2238) LIPID [id number] 00:00:00 Test Item Value Reference Range Interpretation Comments CHOLESTEROL (test code = 2210) 211 MG/DL TRIGLYCERIDES (test code = 2232) 209 MG/DL HDL CHOLESTEROL (test code = 2220) 38 MG/DL CALCULATED LDL CHOL (test code = 131 MG/DL 2237) RISK RATIO LDL/HDL (test code = 3.45 RATIO 2238) CBC W/AUTO [id number] 00:00:00 Test Item Value Reference Range Interpretation [...] code = 1015) 254 K/UL CBC W/AUTO [id number] 00:00:00 Test Item Value Reference Range Interpretation [...] code = 1015) 254 K/UL CBC W/AUTO [id number] 00:00:00 Test Item Value Reference Range Interpretation [...] (test code = 1015) 254 K/UL HEMOGLOBIN [id number] 00:00:00 Test Item Value Reference Range Interpretation Comments HEMOGLOBIN A1c (test code = 96984) 6.9 % HEMOGLOBIN [id number] 00:00:00 Test Item Value Reference Range Interpretation Comments HEMOGLOBIN A1c (test code = 27772) 6.9 % HEMOGLOBIN [id number] 00:00:00 Test Item Value Reference Range Interpretation Comments HEMOGLOBIN A1c (test code = 34139) 6.9 % [id number] 00:00:00 Test Item Value Reference Range Interpretation Comments TSH (test code = 2821) 0.5 UIU/ML [id number] 00:00:00 Test Item Value Reference Range Interpretation Comments TSH (test code = 2821) 0.5 UIU/ML [id number] 00:00:00 Test Item Value Reference Range Interpretation Comments TSH (test code = 2821) 0.5 UIU/ML HEPATITIS A IgM [REFLEX]2015-06-24 00:00:00 Test Item Value Reference Range Interpretation Comments HEPATITIS A IgM (test code = NON-REACTIVE 8) COMPREHENSIVE METABOLIC [id number] 00:00:00 Test Item Value Reference Range Interpretation Comments GLUCOSE (test code = 2217) 105 MG/DL BUN (test code = 2208) 11 MG/DL CREATININE (test code = 2214) 0.80 MG/DL eGFR AMER. (test code 109 ML/MIN/1.73 = 82524) eGFR NON- AMER. (test 94 ML/MIN/1.73 code = 80345) CALCULATED BUN/CREAT (test 14 RATIO code = [...] (test code = 2219) 14 U/L LIPID [id number] 00:00:00 Test Item Value Reference Range Interpretation Comments CHOLESTEROL (test code = 2210) 211 MG/DL TRIGLYCERIDES (test code = 2232) 209 MG/DL HDL CHOLESTEROL (test code = 2220) 38 MG/DL CALCULATED LDL CHOL (test code = 131 MG/DL 2237) RISK RATIO LDL/HDL (test code = 3.45 RATIO 2238) CBC W/AUTO [id number] 00:00:00 Test Item Value Reference Range Interpretation [...] code = 1015) 254 K/UL CBC W/AUTO [id number] 00:00:00 Test Item Value Reference Range Interpretation [...] (test code = 1015) 254 K/UL HEMOGLOBIN [id number] 00:00:00 Test Item Value Reference Range Interpretation Comments HEMOGLOBIN A1c (test code = 30265) 6.9 % HEMOGLOBIN [id number] 00:00:00 Test Item Value Reference Range Interpretation Comments HEMOGLOBIN A1c (test code = 97695) 6.9 % [id number] 00:00:00 Test Item Value Reference Range Interpretation Comments TSH (test code = 2821) 0.5 UIU/ML [id number] 00:00:00 Test Item Value Reference Range Interpretation Comments TSH (test code = 2821) 0.5 UIU/ML HEPATITIS A IgM [REFLEX]2015-06-24 00:00:00 Test Item Value Reference Range Interpretation Comments HEPATITIS A IgM (test code = NON-REACTIVE 2728) CHLAMYDIA, AMPLIFIED, [id number] 00:00:00 Test Item Value Reference Range Interpretation Comments CHLAMYDIA, AMPLIFIED (test code = NEGATIVE 43275) CHLAMYDIA, AMPLIFIED, [id number] 00:00:00 Test Item Value Reference Range Interpretation Comments CHLAMYDIA, AMPLIFIED (test code = NEGATIVE 27696) GC, AMPLIFIED, [id number] 00:00:00 Test Item Value Reference Range Interpretation Comments GONORRHEA, AMPLIFIED (test code = NEGATIVE 32925) GC, AMPLIFIED, [id number] 00:00:00 Test Item Value Reference Range Interpretation Comments GONORRHEA, AMPLIFIED (test code = NEGATIVE 75404) HIV AB/AG COMBO RFLX [id number] 00:00:00 Test Item Value Reference Range Interpretation Comments HIV AB/AG COMBO RFLX CONF (test NON-REACTIVE code = 3514) HIV AB/AG COMBO RFLX [id number] 00:00:00 Test Item Value Reference Range Interpretation Comments HIV AB/AG COMBO RFLX CONF (test NON-REACTIVE code = 3514) [id number] 00:00:00 Test Item Value Reference Range Interpretation Comments RPR RESULT (test code = NON-REACTIVE 3501) RPR TITER (test code = 3500) NOT INDIC. TITER [id number] 00:00:00 Test Item Value Reference Range Interpretation Comments RPR RESULT (test code = NON-REACTIVE 3501) RPR TITER (test code = 3500) NOT INDIC. TITER [id number] 00:00:00 Test Item Value Reference Range Interpretation [...] INTERPRETATION HEPATITIS B: (NOTE) (test code = 33648) INTERPRETATION HEPATITIS C: (NOTE) (test code = 65719) HEPATITIS PROFILE (A,B,C)2015-06-24 00:00:00 Test Item Value [...] INTERPRETATION HEPATITIS B: (NOTE) (test code = 55069) INTERPRETATION HEPATITIS C: (NOTE) (test code = 35475) COMPREHENSIVE METABOLIC [id number] 00:00:00 Test Item Value Reference Range Interpretation Comments GLUCOSE (test code = 2217) 105 MG/DL BUN (test code = 2208) 11 MG/DL CREATININE (test code = 2214) 0.80 MG/DL eGFR AMER. (test code 109 ML/MIN/1.73 = 73911) eGFR NON- AMER. (test 94 ML/MIN/1.73 code = 03250) CALCULATED BUN/CREAT (test 14 RATIO code = [...] code = 2219) 14 U/L COMPREHENSIVE METABOLIC [id number] 00:00:00 Test Item Value Reference Range Interpretation Comments GLUCOSE (test code = 2217) 105 MG/DL BUN (test code = 2208) 11 MG/DL CREATININE (test code = 2214) 0.80 MG/DL eGFR AMER. (test code 109 ML/MIN/1.73 = 61055) eGFR NON- AMER. (test 94 ML/MIN/1.73 code = 33204) CALCULATED BUN/CREAT (test 14 RATIO code = [...] (test code = 2219) 14 U/L LIPID [id number] 00:00:00 Test Item Value Reference Range Interpretation Comments CHOLESTEROL (test code = 2210) 211 MG/DL TRIGLYCERIDES (test code = 2232) 209 MG/DL HDL CHOLESTEROL (test code = 2220) 38 MG/DL CALCULATED LDL CHOL (test code = 131 MG/DL 2236) RISK RATIO LDL/HDL (test code = 3.45 RATIO 2238) LIPID [id number] 00:00:00 Test Item Value Reference Range Interpretation Comments CHOLESTEROL (test code = 2210) 211 MG/DL TRIGLYCERIDES (test code = 2232) 209 MG/DL HDL CHOLESTEROL (test code = 2220) 38 MG/DL CALCULATED LDL CHOL (test code = 131 MG/DL 2237) RISK RATIO LDL/HDL (test code = 3.45 RATIO 2238) CBC W/AUTO [id number] 00:00:00 Test Item Value Reference Range Interpretation [...] code = 1015) 254 K/UL CBC W/AUTO [id number] 00:00:00 Test Item Value Reference Range Interpretation [...] code = 1015) 254 K/UL CBC W/AUTO [id number] 00:00:00 Test Item Value Reference Range Interpretation [...] (test code = 1015) 254 K/UL HEMOGLOBIN [id number] 00:00:00 Test Item Value Reference Range Interpretation Comments HEMOGLOBIN A1c (test code = 29926) 6.9 % HEMOGLOBIN [id number] 00:00:00 Test Item Value Reference Range Interpretation Comments HEMOGLOBIN A1c (test code = 81526) 6.9 % HEMOGLOBIN [id number] 00:00:00 Test Item Value Reference Range Interpretation Comments HEMOGLOBIN A1c (test code = 21093) 6.9 % [id number] 00:00:00 Test Item Value Reference Range Interpretation Comments TSH (test code = 2821) 0.5 UIU/ML [id number] 00:00:00 Test Item Value Reference Range Interpretation Comments TSH (test code = 2821) 0.5 UIU/ML [id number] 00:00:00 Test Item Value Reference Range Interpretation Comments TSH (test code = 2821) 0.5 UIU/ML HEPATITIS A IgM [REFLEX]2015-06-24 00:00:00 Test Item Value Reference Range Interpretation Comments HEPATITIS A IgM (test code = NON-REACTIVE 9208) CHLAMYDIA, AMPLIFIED, [id number] 00:00:00 Test Item Value Reference Range Interpretation Comments CHLAMYDIA, AMPLIFIED (test code = NEGATIVE 53889) CHLAMYDIA, AMPLIFIED, [id number] 00:00:00 Test Item Value Reference Range Interpretation Comments CHLAMYDIA, AMPLIFIED (test code = NEGATIVE 99443) GC, AMPLIFIED, [id number] 00:00:00 Test Item Value Reference Range Interpretation Comments GONORRHEA, AMPLIFIED (test code = NEGATIVE 83176) GC, AMPLIFIED, [id number] 00:00:00 Test Item Value Reference Range Interpretation Comments GONORRHEA, AMPLIFIED (test code = NEGATIVE 84900) HIV AB/AG COMBO RFLX [id number] 00:00:00 Test Item Value Reference Range Interpretation Comments HIV AB/AG COMBO RFLX CONF (test NON-REACTIVE code = 3514) HIV AB/AG COMBO RFLX [id number] 00:00:00 Test Item Value Reference Range Interpretation Comments HIV AB/AG COMBO RFLX CONF (test NON-REACTIVE code = 3514) [id number] 00:00:00 Test Item Value Reference Range Interpretation Comments RPR RESULT (test code = NON-REACTIVE 3501) RPR TITER (test code = 3500) NOT INDIC. TITER [id number] 00:00:00 Test Item Value Reference Range Interpretation Comments RPR RESULT (test code = NON-REACTIVE 3501) RPR TITER (test code = 3500) NOT INDIC. TITER [id number] 00:00:00 Test Item Value Reference Range Interpretation [...] INTERPRETATION HEPATITIS B: (NOTE) (test code = 88421) INTERPRETATION HEPATITIS C: (NOTE) (test code = 87705) HEPATITIS PROFILE (A,B,C)2015-06-24 00:00:00 Test Item Value [...] INTERPRETATION HEPATITIS B: (NOTE) (test code = 31477) INTERPRETATION HEPATITIS C: (NOTE) (test code = 79552) COMPREHENSIVE METABOLIC [id number] 00:00:00 Test Item Value Reference Range Interpretation Comments GLUCOSE (test code = 2217) 105 MG/DL BUN (test code = 2208) 11 MG/DL CREATININE (test code = 2214) 0.80 MG/DL eGFR AMER. (test code 109 ML/MIN/1.73 = 20171) eGFR NON- AMER. (test 94 ML/MIN/1.73 code = 22148) CALCULATED BUN/CREAT (test 14 RATIO code = [...] code = 2219) 14 U/L COMPREHENSIVE METABOLIC [id number] 00:00:00 Test Item Value Reference Range Interpretation Comments GLUCOSE (test code = 2217) 105 MG/DL BUN (test code = 2208) 11 MG/DL CREATININE (test code = 2214) 0.80 MG/DL eGFR AMER. (test code 109 ML/MIN/1.73 = 92427) eGFR NON- AMER. (test 94 ML/MIN/1.73 code = 84355) CALCULATED BUN/CREAT (test 14 RATIO code = [...] (test code = 2219) 14 U/L LIPID [id number] 00:00:00 Test Item Value Reference Range Interpretation Comments CHOLESTEROL (test code = 2210) 211 MG/DL TRIGLYCERIDES (test code = 2232) 209 MG/DL HDL CHOLESTEROL (test code = 2220) 38 MG/DL CALCULATED LDL CHOL (test code = 131 MG/DL 2237) RISK RATIO LDL/HDL (test code = 3.45 RATIO 2238) LIPID [id number] 00:00:00 Test Item Value Reference Range Interpretation Comments CHOLESTEROL (test code = 2210) 211 MG/DL TRIGLYCERIDES (test code = 2232) 209 MG/DL HDL CHOLESTEROL (test code = 2220) 38 MG/DL CALCULATED LDL CHOL (test code = 131 MG/DL 2237) RISK RATIO LDL/HDL (test code = 3.45 RATIO 2238) CBC W/AUTO [id number] 00:00:00 Test Item Value Reference Range Interpretation [...] code = 1015) 254 K/UL CBC W/AUTO [id number] 00:00:00 Test Item Value Reference Range Interpretation [...] code = 1015) 254 K/UL CBC W/AUTO [id number] 00:00:00 Test Item Value Reference Range Interpretation [...] (test code = 1015) 254 K/UL HEMOGLOBIN [id number] 00:00:00 Test Item Value Reference Range Interpretation Comments HEMOGLOBIN A1c (test code = 00574) 6.9 % HEMOGLOBIN [id number] 00:00:00 Test Item Value Reference Range Interpretation Comments HEMOGLOBIN A1c (test code = 35808) 6.9 % HEMOGLOBIN [id number] 00:00:00 Test Item Value Reference Range Interpretation Comments HEMOGLOBIN A1c (test code = 75865) 6.9 % [id number] 00:00:00 Test Item Value Reference Range Interpretation Comments TSH (test code = 2821) 0.5 UIU/ML [id number] 00:00:00 Test Item Value Reference Range Interpretation Comments TSH (test code = 2821) 0.5 UIU/ML [id number] 00:00:00 Test Item Value Reference Range Interpretation Comments TSH (test code = 2821) 0.5 UIU/ML HEPATITIS A IgM [REFLEX]2015-06-24 00:00:00 Test Item Value Reference Range Interpretation Comments HEPATITIS A IgM (test code = NON-REACTIVE 2728) COMPREHENSIVE METABOLIC [id number] 00:00:00 Test Item Value Reference Range Interpretation Comments GLUCOSE (test code = 2217) 113 MG/DL BUN (test code = 2208) 22 MG/DL CREATININE (test code = 2214) 0.9 MG/DL eGFR AMER. (test code 85 ML/MIN/1.73 = 62363) eGFR NON- AMER. (test 70 ML/MIN/1.73 code = 23345) CALCULATED BUN/CREAT (test 24 RATIO code = [...] code = 2219) 24 U/L COMPREHENSIVE METABOLIC [id number] 00:00:00 Test Item Value Reference Range Interpretation Comments GLUCOSE (test code = 2217) 113 MG/DL BUN (test code = 2208) 22 MG/DL CREATININE (test code = 2214) 0.9 MG/DL eGFR AMER. (test code 85 ML/MIN/1.73 = 89523) eGFR NON- AMER. (test 70 ML/MIN/1.73 code = 77445) CALCULATED BUN/CREAT (test 24 RATIO code = [...] code = 2219) 24 U/L CBC W/AUTO [id number] 00:00:00 Test Item Value Reference Range Interpretation [...] code = 1015) 270 K/UL CBC W/AUTO [id number] 00:00:00 Test Item Value Reference Range Interpretation [...] code = 1015) 270 K/UL CBC W/AUTO [id number] 00:00:00 Test Item Value Reference Range Interpretation [...] (test code = 1015) 270 K/UL HEMOGLOBIN [id number] 00:00:00 Test Item Value Reference Range Interpretation Comments HEMOGLOBIN A1c (test code = 61323) 7.3 % HEMOGLOBIN [id number] 00:00:00 Test Item Value Reference Range Interpretation Comments HEMOGLOBIN A1c (test code = 72920) 7.3 % HEMOGLOBIN [id number] 00:00:00 Test Item Value Reference Range Interpretation Comments HEMOGLOBIN A1c (test code = 37020) 7.3 % COMPREHENSIVE METABOLIC [id number] 00:00:00 Test Item Value Reference Range Interpretation Comments GLUCOSE (test code = 2217) 113 MG/DL BUN (test code = 2208) 22 MG/DL CREATININE (test code = 2214) 0.9 MG/DL eGFR AMER. (test code 85 ML/MIN/1.73 = 12792) eGFR NON- AMER. (test 70 ML/MIN/1.73 code = 90328) CALCULATED BUN/CREAT (test 24 RATIO code = [...] code = 2219) 24 U/L COMPREHENSIVE METABOLIC [id number] 00:00:00 Test Item Value Reference Range Interpretation Comments GLUCOSE (test code = 2217) 113 MG/DL BUN (test code = 2208) 22 MG/DL CREATININE (test code = 2214) 0.9 MG/DL eGFR AMER. (test code 85 ML/MIN/1.73 = 56117) eGFR NON- AMER. (test 70 ML/MIN/1.73 code = 30074) CALCULATED BUN/CREAT (test 24 RATIO code = [...] code = 2219) 24 U/L CBC W/AUTO [id number] 00:00:00 Test Item Value Reference Range Interpretation [...] code = 1015) 270 K/UL CBC W/AUTO [id number] 00:00:00 Test Item Value Reference Range Interpretation [...] code = 1015) 270 K/UL CBC W/AUTO [id number] 00:00:00 Test Item Value Reference Range Interpretation [...] (test code = 1015) 270 K/UL HEMOGLOBIN [id number] 00:00:00 Test Item Value Reference Range Interpretation Comments HEMOGLOBIN A1c (test code = 94796) 7.3 % HEMOGLOBIN [id number] 00:00:00 Test Item Value Reference Range Interpretation Comments HEMOGLOBIN A1c (test code = 16584) 7.3 % HEMOGLOBIN [id number] 00:00:00 Test Item Value Reference Range Interpretation Comments HEMOGLOBIN A1c (test code = 99709) 7.3 % COMPREHENSIVE METABOLIC [id number] 00:00:00 Test Item Value Reference Range Interpretation Comments GLUCOSE (test code = 2217) 113 MG/DL BUN (test code = 2208) 22 MG/DL CREATININE (test code = 2214) 0.9 MG/DL eGFR AMER. (test code 85 ML/MIN/1.73 = 83390) eGFR NON- AMER. (test 70 ML/MIN/1.73 code = 81892) CALCULATED BUN/CREAT (test 24 RATIO code = [...] code = 2219) 24 U/L COMPREHENSIVE METABOLIC [id number] 00:00:00 Test Item Value Reference Range Interpretation Comments GLUCOSE (test code = 2217) 113 MG/DL BUN (test code = 2208) 22 MG/DL CREATININE (test code = 2214) 0.9 MG/DL eGFR AMER. (test code 85 ML/MIN/1.73 = 56023) eGFR NON- AMER. (test 70 ML/MIN/1.73 code = 39600) CALCULATED BUN/CREAT (test 24 RATIO code = [...] code = 2219) 24 U/L CBC W/AUTO [id number] 00:00:00 Test Item Value Reference Range Interpretation [...] code = 1015) 270 K/UL CBC W/AUTO [id number] 00:00:00 Test Item Value Reference Range Interpretation [...] code = 1015) 270 K/UL CBC W/AUTO [id number] 00:00:00 Test Item Value Reference Range Interpretation [...] (test code = 1015) 270 K/UL HEMOGLOBIN [id number] 00:00:00 Test Item Value Reference Range Interpretation Comments HEMOGLOBIN A1c (test code = 12620) 7.3 % HEMOGLOBIN [id number] 00:00:00 Test Item Value Reference Range Interpretation Comments HEMOGLOBIN A1c (test code = 86152) 7.3 % HEMOGLOBIN [id number] 00:00:00 Test Item Value Reference Range Interpretation Comments HEMOGLOBIN A1c (test code = 19906) 7.3 % COMPREHENSIVE METABOLIC [id number] 00:00:00 Test Item Value Reference Range Interpretation Comments GLUCOSE (test code = 2217) 113 MG/DL BUN (test code = 2208) 22 MG/DL CREATININE (test code = 2214) 0.9 MG/DL eGFR AMER. (test code 85 ML/MIN/1.73 = 15100) eGFR NON- AMER. (test 70 ML/MIN/1.73 code = 93388) CALCULATED BUN/CREAT (test 24 RATIO code = [...] code = 2219) 24 U/L COMPREHENSIVE METABOLIC [id number] 00:00:00 Test Item Value Reference Range Interpretation Comments GLUCOSE (test code = 2217) 113 MG/DL BUN (test code = 2208) 22 MG/DL CREATININE (test code = 2214) 0.9 MG/DL eGFR AMER. (test code 85 ML/MIN/1.73 = 96516) eGFR NON- AMER. (test 70 ML/MIN/1.73 code = 33722) CALCULATED BUN/CREAT (test 24 RATIO code = [...] code = 2219) 24 U/L CBC W/AUTO [id number] 00:00:00 Test Item Value Reference Range Interpretation [...] code = 1015) 270 K/UL CBC W/AUTO [id number] 00:00:00 Test Item Value Reference Range Interpretation [...] code = 1015) 270 K/UL CBC W/AUTO [id number] 00:00:00 Test Item Value Reference Range Interpretation [...] (test code = 1015) 270 K/UL HEMOGLOBIN [id number] 00:00:00 Test Item Value Reference Range Interpretation Comments HEMOGLOBIN A1c (test code = 35014) 7.3 % HEMOGLOBIN [id number] 00:00:00 Test Item Value Reference Range Interpretation Comments HEMOGLOBIN A1c (test code = 64438) 7.3 % HEMOGLOBIN [id number] 00:00:00 Test Item Value Reference Range Interpretation Comments HEMOGLOBIN A1c (test code = 70008) 7.3 % COMPREHENSIVE METABOLIC [id number] 00:00:00 Test Item Value Reference Range Interpretation Comments GLUCOSE (test code = 2217) 113 MG/DL BUN (test code = 2208) 22 MG/DL CREATININE (test code = 2214) 0.9 MG/DL eGFR AMER. (test code 85 ML/MIN/1.73 = 87738) eGFR NON- AMER. (test 70 ML/MIN/1.73 code = 18883) CALCULATED BUN/CREAT (test 24 RATIO code = [...] code = 2219) 24 U/L COMPREHENSIVE METABOLIC [id number] 00:00:00 Test Item Value Reference Range Interpretation Comments GLUCOSE (test code = 2217) 113 MG/DL BUN (test code = 2208) 22 MG/DL CREATININE (test code = 2214) 0.9 MG/DL eGFR AMER. (test code 85 ML/MIN/1.73 = 91276) eGFR NON- AMER. (test 70 ML/MIN/1.73 code = 50691) CALCULATED BUN/CREAT (test 24 RATIO code = [...] code = 2219) 24 U/L CBC W/AUTO [id number] 00:00:00 Test Item Value Reference Range Interpretation [...] code = 1015) 270 K/UL CBC W/AUTO [id number] 00:00:00 Test Item Value Reference Range Interpretation [...] code = 1015) 270 K/UL CBC W/AUTO [id number] 00:00:00 Test Item Value Reference Range Interpretation [...] (test code = 1015) 270 K/UL HEMOGLOBIN [id number] 00:00:00 Test Item Value Reference Range Interpretation Comments HEMOGLOBIN A1c (test code = 03898) 7.3 % HEMOGLOBIN [id number] 00:00:00 Test Item Value Reference Range Interpretation Comments HEMOGLOBIN A1c (test code = 92987) 7.3 % HEMOGLOBIN [id number] 00:00:00 Test Item Value Reference Range Interpretation Comments HEMOGLOBIN A1c (test code = 67992) 7.3 % COMPREHENSIVE METABOLIC [id number] 00:00:00 Test Item Value Reference Range Interpretation Comments GLUCOSE (test code = 2217) 113 MG/DL BUN (test code = 2208) 22 MG/DL CREATININE (test code = 2214) 0.9 MG/DL eGFR AMER. (test code 85 ML/MIN/1.73 = 00278) eGFR NON- AMER. (test 70 ML/MIN/1.73 code = 86858) CALCULATED BUN/CREAT (test 24 RATIO code = [...] code = 2219) 24 U/L COMPREHENSIVE METABOLIC [id number] 00:00:00 Test Item Value Reference Range Interpretation Comments GLUCOSE (test code = 2217) 113 MG/DL BUN (test code = 2208) 22 MG/DL CREATININE (test code = 2214) 0.9 MG/DL eGFR AMER. (test code 85 ML/MIN/1.73 = 51858) eGFR NON- AMER. (test 70 ML/MIN/1.73 code = 35722) CALCULATED BUN/CREAT (test 24 RATIO code = [...] code = 2219) 24 U/L CBC W/AUTO [id number] 00:00:00 Test Item Value Reference Range Interpretation [...] code = 1015) 270 K/UL CBC W/AUTO [id number] 00:00:00 Test Item Value Reference Range Interpretation [...] code = 1015) 270 K/UL CBC W/AUTO [id number] 00:00:00 Test Item Value Reference Range Interpretation [...] (test code = 1015) 270 K/UL HEMOGLOBIN [id number] 00:00:00 Test Item Value Reference Range Interpretation Comments HEMOGLOBIN A1c (test code = 89405) 7.3 % HEMOGLOBIN [id number] 00:00:00 Test Item Value Reference Range Interpretation Comments HEMOGLOBIN A1c (test code = 18343) 7.3 % HEMOGLOBIN [id number] 00:00:00 Test Item Value Reference Range Interpretation Comments HEMOGLOBIN A1c (test code = 78006) 7.3 % COMPREHENSIVE METABOLIC [id number] 00:00:00 Test Item Value Reference Range Interpretation Comments GLUCOSE (test code = 2217) 113 MG/DL BUN (test code = 2208) 22 MG/DL CREATININE (test code = 2214) 0.9 MG/DL eGFR AMER. (test code 85 ML/MIN/1.73 = 22684) eGFR NON- AMER. (test 70 ML/MIN/1.73 code = 57355) CALCULATED BUN/CREAT (test 24 RATIO code = [...] code = 2219) 24 U/L COMPREHENSIVE METABOLIC [id number] 00:00:00 Test Item Value Reference Range Interpretation Comments GLUCOSE (test code = 2217) 113 MG/DL BUN (test code = 2208) 22 MG/DL CREATININE (test code = 2214) 0.9 MG/DL eGFR AMER. (test code 85 ML/MIN/1.73 = 65085) eGFR NON- AMER. (test 70 ML/MIN/1.73 code = 10211) CALCULATED BUN/CREAT (test 24 RATIO code = [...] code = 2219) 24 U/L CBC W/AUTO [id number] 00:00:00 Test Item Value Reference Range Interpretation [...] code = 1015) 270 K/UL CBC W/AUTO [id number] 00:00:00 Test Item Value Reference Range Interpretation [...] code = 1015) 270 K/UL CBC W/AUTO [id number] 00:00:00 Test Item Value Reference Range Interpretation [...] (test code = 1015) 270 K/UL HEMOGLOBIN [id number] 00:00:00 Test Item Value Reference Range Interpretation Comments HEMOGLOBIN A1c (test code = 52030) 7.3 % HEMOGLOBIN [id number] 00:00:00 Test Item Value Reference Range Interpretation Comments HEMOGLOBIN A1c (test code = 77167) 7.3 % HEMOGLOBIN [id number] 00:00:00 Test Item Value Reference Range Interpretation Comments HEMOGLOBIN A1c (test code = 22466) 7.3 % COMPREHENSIVE METABOLIC [id number] 00:00:00 Test Item Value Reference Range Interpretation Comments GLUCOSE (test code = 2217) 113 MG/DL BUN (test code = 2208) 22 MG/DL CREATININE (test code = 2214) 0.9 MG/DL eGFR AMER. (test code 85 ML/MIN/1.73 = 64827) eGFR NON- AMER. (test 70 ML/MIN/1.73 code = 62670) CALCULATED BUN/CREAT (test 24 RATIO code = [...] code = 2219) 24 U/L CBC W/AUTO [id number] 00:00:00 Test Item Value Reference Range Interpretation [...] code = 1015) 270 K/UL CBC W/AUTO [id number] 00:00:00 Test Item Value Reference Range Interpretation [...] (test code = 1015) 270 K/UL HEMOGLOBIN [id number] 00:00:00 Test Item Value Reference Range Interpretation Comments HEMOGLOBIN A1c (test code = 85613) 7.3 % HEMOGLOBIN [id number] 00:00:00 Test Item Value Reference Range Interpretation Comments HEMOGLOBIN A1c (test code = 25365) 7.3 % COMPREHENSIVE METABOLIC [id number] 00:00:00 Test Item Value Reference Range Interpretation Comments GLUCOSE (test code = 2217) 113 MG/DL BUN (test code = 2208) 22 MG/DL CREATININE (test code = 2214) 0.9 MG/DL eGFR AMER. (test code 85 ML/MIN/1.73 = 21817) eGFR NON- AMER. (test 70 ML/MIN/1.73 code = 71504) CALCULATED BUN/CREAT (test 24 RATIO code = [...] code = 2219) 24 U/L COMPREHENSIVE METABOLIC [id number] 00:00:00 Test Item Value Reference Range Interpretation Comments GLUCOSE (test code = 2217) 113 MG/DL BUN (test code = 2208) 22 MG/DL CREATININE (test code = 2214) 0.9 MG/DL eGFR AMER. (test code 85 ML/MIN/1.73 = 88228) eGFR NON- AMER. (test 70 ML/MIN/1.73 code = 22537) CALCULATED BUN/CREAT (test 24 RATIO code = [...] code = 2219) 24 U/L CBC W/AUTO [id number] 00:00:00 Test Item Value Reference Range Interpretation [...] code = 1015) 270 K/UL CBC W/AUTO [id number] 00:00:00 Test Item Value Reference Range Interpretation [...] code = 1015) 270 K/UL CBC W/AUTO [id number] 00:00:00 Test Item Value Reference Range Interpretation [...] (test code = 1015) 270 K/UL HEMOGLOBIN [id number] 00:00:00 Test Item Value Reference Range Interpretation Comments HEMOGLOBIN A1c (test code = 29780) 7.3 % HEMOGLOBIN [id number] 00:00:00 Test Item Value Reference Range Interpretation Comments HEMOGLOBIN A1c (test code = 75704) 7.3 % HEMOGLOBIN [id number] 00:00:00 Test Item Value Reference Range Interpretation Comments HEMOGLOBIN A1c (test code = 16437) 7.3 % COMPREHENSIVE METABOLIC [id number] 00:00:00 Test Item Value Reference Range Interpretation Comments GLUCOSE (test code = 2217) 113 MG/DL BUN (test code = 2208) 22 MG/DL CREATININE (test code = 2214) 0.9 MG/DL eGFR AMER. (test code 85 ML/MIN/1.73 = 68173) eGFR NON- AMER. (test 70 ML/MIN/1.73 code = 83296) CALCULATED BUN/CREAT (test 24 RATIO code = [...] code = 2219) 24 U/L COMPREHENSIVE METABOLIC [id number] 00:00:00 Test Item Value Reference Range Interpretation Comments GLUCOSE (test code = 2217) 113 MG/DL BUN (test code = 2208) 22 MG/DL CREATININE (test code = 2214) 0.9 MG/DL eGFR AMER. (test code 85 ML/MIN/1.73 = 58978) eGFR NON- AMER. (test 70 ML/MIN/1.73 code = 40816) CALCULATED BUN/CREAT (test 24 RATIO code = [...] code = 2219) 24 U/L CBC W/AUTO [id number] 00:00:00 Test Item Value Reference Range Interpretation [...] code = 1015) 270 K/UL CBC W/AUTO [id number] 00:00:00 Test Item Value Reference Range Interpretation [...] code = 1015) 270 K/UL CBC W/AUTO [id number] 00:00:00 Test Item Value Reference Range Interpretation [...] (test code = 1015) 270 K/UL HEMOGLOBIN [id number] 00:00:00 Test Item Value Reference Range Interpretation Comments HEMOGLOBIN A1c (test code = 20281) 7.3 % HEMOGLOBIN [id number] 00:00:00 Test Item Value Reference Range Interpretation Comments HEMOGLOBIN A1c (test code = 86055) 7.3 % HEMOGLOBIN [id number] 00:00:00 Test Item Value Reference Range Interpretation Comments HEMOGLOBIN A1c (test code = 20630) 7.3 % COMPREHENSIVE METABOLIC [id number] 00:00:00 Test Item Value Reference Range Interpretation Comments GLUCOSE (test code = 2217) 113 MG/DL BUN (test code = 2208) 22 MG/DL CREATININE (test code = 2214) 0.9 MG/DL eGFR AMER. (test code 85 ML/MIN/1.73 = 21139) eGFR NON- AMER. (test 70 ML/MIN/1.73 code = 88214) CALCULATED BUN/CREAT (test 24 RATIO code = [...] code = 2219) 24 U/L COMPREHENSIVE METABOLIC [id number] 00:00:00 Test Item Value Reference Range Interpretation Comments GLUCOSE (test code = 2217) 113 MG/DL BUN (test code = 2208) 22 MG/DL CREATININE (test code = 2214) 0.9 MG/DL eGFR AMER. (test code 85 ML/MIN/1.73 = 16719) eGFR NON- AMER. (test 70 ML/MIN/1.73 code = 51303) CALCULATED BUN/CREAT (test 24 RATIO code = [...] code = 2219) 24 U/L CBC W/AUTO [id number] 00:00:00 Test Item Value Reference Range Interpretation [...] code = 1015) 270 K/UL CBC W/AUTO [id number] 00:00:00 Test Item Value Reference Range Interpretation [...] code = 1015) 270 K/UL CBC W/AUTO [id number] 00:00:00 Test Item Value Reference Range Interpretation [...] (test code = 1015) 270 K/UL HEMOGLOBIN [id number] 00:00:00 Test Item Value Reference Range Interpretation Comments HEMOGLOBIN A1c (test code = 07883) 7.3 % HEMOGLOBIN [id number] 00:00:00 Test Item Value Reference Range Interpretation Comments HEMOGLOBIN A1c (test code = 91488) 7.3 % HEMOGLOBIN [id number] 00:00:00 Test Item Value Reference Range Interpretation Comments HEMOGLOBIN A1c (test code = 69926) 7.3 % Notes Date/Time Note Provider Source 2023-02-17 Formatting of this note might be differe nt from the original. Shanika DoranChloe 16:33:36-00:00 Patient here for c/o chronic , severe yeast infection with burning and pain. She was seen in the ER last 02/09/23, [facility] Electronically signed by Shanika Ospina LVN at 0 02/17/2023 4:34 PM CDT 2021-08-02 [facility] 21:55:00-00:00 [facility] ([facility]) DT Operative Note REPORT#:[id number] REPORT STATUS: Signed DATE:08/02/21 TIME: 2154 PATIENT: MARGE FRANCO UNIT #: [id number] ROOM/BED: : 78 AGE: 41 SEX: F ATTEND: Bebeto Quiroga MD ADM AUTHOR: Bebeto Quiroga MD * ALL edits or amendments must be made on the onlinetours/computer document * Operative Report Operative Note Note: DATE OF SERVICE: 07/31/21 PREOPERATIVE DIAGNOSIS: left volar wrist ganglio n cyst POSTOPERATIVE DIAGNOSIS: left volar wrist gangli on cyst OPERATION PERFORMED: left volar wrist ganglion c yst excision SURGEON: Bebeto Quiroga DESIGN CHECKER SURGEON: Diaz simmons ANESTHESIA: general with local [...] was then prepped and draped in the [facility] sterile fashion. The arm was then [...] Bebeto Quiroga MD on 07/12 09/[address] [place] [address] #:[id number] END OF REPORT 2020-02-13 [id number] [facility] 22:19:00-00:00 [address] [address] PATIENT NAME: Marge Franco ADMIT DATE: 0 ACCOUNT NO: [id number] ROOM NO: AGE: 40 REPORT TYPE: HISTORY AND PHYSICAL SEX: F ADMITTING PHYSICIAN: ATTENDING PHYSICIAN:Judi Hodge DO ADMISSION DATE: 02/13/2020 HISTORY OF PRESENT ILLNESS: The patient is a 40- year-old female who is status post a right posterior tibial tendon reconstruct ion with debridement on 01/16/2020 at [facility]. Today, she was walking the stairs, felt a pop on the back of her operative leg in t he Achilles area and felt significant pain. She was brought to [facility] for evaluation. Presently in [facility], she is in significant pain and [...] By: Judi Hodge DO WT: HP:DANY/NEYMAR/GM Conf#: [id number]/DID#: [id number] Authenticated by Judi Hodge DO On 0 07:57:56 AM Electronically Signed by Judi Hodeg DO on 0 03/17/20 at 0758 PATIENT NAME: Marge Franco 6341 2020-01-16 [id number] [facility] 12:10:00-00:00 [address] [address] PATIENT NAME: MARGE FRANCO ADMIT DA TE: 01/16/20 ACCOUNT NO: [id number] ROOM NO: AGE: 39 REPORT TYPE: OPERATIVE [...] Achilles lengtheni ng. SURGEON: Elbert Wilson MD DESIGN CHECKER: LINDSAY Palma ANESTHESIA: General LMA with intraoperative [...] ligaments that were plicated with #2 FiberWire [id number] sutures. Once this was complete, a small [...] By: Elbert Wilson MD WT: OP:DANY/JENNY/GM Conf#: [id number]/DID#: [id number] Authenticated by Elbert Wilson MD On 01/19/2020 06:47:49 AM Electronically Signed by Elbert Wilson MD on at 0648 PATIENT NAME: MARGE FRANCO "
[2023-02-21 03:42] LABS: SARS-CoV-2 Antigen Rapid Res Negative (Negative)
--- NOTE | 2023-02-21 03:46 | ER ---
Nurse's Notes [facility] Name: Valentina Franco Age: 43 yrs Sex: Female : 1980 Arrival Date: 02/21/2023 Time: 02:19 Bed 6 Private MD: Diagnosis: Acute upper respiratory infection, unspecified Presentation: 02/21 02:59 Chief complaint: Patient states: I've been coughing all day, my throat hurts, ,my body vc1 aches, I have a headache. I took a home covid test and I think it was positive. Coronavirus screen: Vaccine status: Patient reports receiving the 2nd dose of the covid vaccine. plus one booster; Moderna Client denies travel out of the [place] in the last 14 days. congestion, cough unrelated to allergies, fatigue, fever, muscle pain, Client presents with at least one sign or symptom that may indicate coronavirus-19. Ebola Screen: Patient negative for fever greater than or equal to 101.5 degrees Fahrenheit, and additional compatible Ebola Virus Disease symptoms Patient denies exposure to infectious person. Patient denies travel to an Ebola-affected area in the 21 days before illness onset. No symptoms or risks identified at this time. Initial Sepsis Screen: Does the patient meet any 2 criteria? No. Patient's initial sepsis screen is negative. Does the patient have a suspected source of infection? No. Patient's initial sepsis screen is negative. Risk Assessment: Do you want to hurt yourself or someone else? Patient reports no desire to harm self or others. Onset of symptoms was February 20, 2023. 02:59 Method Of Arrival: Ambulatory vc1 02:59 Acuity: CYNTHIA 4 vc1 Triage Assessment: 03:05 General: Appears in no apparent distress. uncomfortable, ill, Behavior is cooperative, vc1 appropriate for age. Pain: Complains of pain in headache Pain does not radiate. Pain currently is 7 out of 10 on a pain scale. Quality of pain is described as pressure, Pain began gradually, yesterday Also complains of no other associated symptoms. EENT: No deficits noted. No signs and/or symptoms were reported regarding the EENT system. Neuro: Level of Consciousness is awake, alert, obeys commands, Oriented to person, place, time, situation, Appropriate for age. Cardiovascular: No deficits noted. Respiratory: Airway is patent Respiratory effort is even, unlabored, Respiratory pattern is regular, symmetrical. GI: No deficits noted. No signs and/or symptoms were reported involving the gastrointestinal system. : No deficits noted. No signs and/or symptoms were reported regarding the genitourinary system. Derm: No deficits noted. No signs and/or symptoms reported regarding the dermatologic system. Musculoskeletal: No deficits noted. No signs and/or symptoms reported regarding the musculoskeletal system. 04:06 Headache History: Denies prior headaches. kd3 SKEIN TIER: 03:04 LMP 01/24/2023 vc1 Historical: - Allergies: 03:02 No Known Allergies; vc1 - Home Meds: 03:02 None [Active]; vc1 - PMHx: 03:02 Anxiety; Depression; diabetes mellitus; High Cholesterol; Hypertensive disorder; Kidney vc1 stone; Pancreatitis; Sepsis; UTI; yeast infection; - PSHx: 03:02 section; Cholecystectomy; foot surgery; Heart ablation; Ligation of fallopian vc1 tube; Tonsillectomy; - Immunization history:: Client reports receiving the 2nd dose of the Covid vaccine. - Social history:: Smoking status: Patient denies any tobacco usage or history of. - Family history:: not pertinent. Screenin:03 [facility] ED Fall Risk Assessment (Adult) History of falling in the last 3 months, vc1 including since admission No falls in past 3 months (0 pts) Confusion or Disorientation No (0 pts) Intoxicated or Sedated No (0 pts) Impaired Gait No (0 pts) Mobility Assist Device Used No (0 pt) Altered Elimination No (0 pt) Score/Fall Risk Level 0 - 2 = Low Risk Oriented to surroundings, Maintained a safe environment, Educated pt \T\ family on fall prevention, incl call for assistance when getting out of bed. Abuse screen: Denies threats or abuse. Nutritional screening: No deficits noted. Tuberculosis screening: No symptoms or risk factors identified. Assessment: 04:06 General: Appears in no apparent distress. Behavior is calm, cooperative. Pain: kd3 Complains of pain in headache. Vital Signs: 02:59 BP 121 / 80; Pulse 88; Resp 20; Temp 98.1; Pulse Ox 99% ; Pain 7/10; vc1 04:05 BP 125 / 78; Pulse 80; Resp 15 S; Pulse Ox 100% on R/A; kd3 02:59 Pain Scale: Adult vc1 ED Course: 02:20 Patient arrived in ED. ag3 02:39 Braxton Vizcaino MD is Attending Physician. rt 02:52 Milady Anguiano, RN is Primary Nurse. kd3 03:02 Triage completed. vc1 03:03 Arm band placed on left wrist. vc1 03:07 Patient has correct armband on for positive identification. Bed in low position. Call vc1 light in reach. Pulse ox on. NIBP on. 03:07 SARS-COV-2 Antigen Rapid Sent. kd3 04:06 Provided Education on: . kd3 04:06 No provider procedures requiring assistance completed. Patient did not have IV access kd3 during this emergency room visit. Administered Medications: 03:07 Drug: Ibuprofen PO 800 mg Route: PO; kd3 04:07 Follow up: Response: No adverse reaction kd3 Medication: 03:05 VIS not applicable for this client. vc1 Outcome: 03:46 Discharge ordered by MD. rt 04:06 Discharged to home ambulatory. kd3 04:06 Condition: stable 04:06 Discharge instructions given to patient, Instructed on discharge instructions, follow up and referral plans. Demonstrated understanding of instructions, follow-up care. 04:07 Patient left the ED. kd3 Signatures: Alma Rosa Edmonds 3 Milady Anguiano, PETE FREEMAN kd3 Chelly Macias RN RN vc1 Braxton Vizcaino MD MD rt
--- NOTE | 2023-02-21 03:46 | EDPHYS ---
Physician Documentation [facility] Name: Valentina Franco Age: 43 yrs Sex: Female : 1980 Arrival Date: 02/21/2023 Time: 02:19 Bed 6 Private MD: ED Physician Braxton Vizcaino HPI: 02/21 03:17 This 43 yrs old Female presents to ER via Ambulatory with complaints of Fever, rt Headache, Cough. 03:17 States that shePatient presents to the ED requesting COVID testing. Patient. Patient rt examined, states that she has had a cough that dyspnea as well as a headache and a fever. Denies other acute complaints at this time. Symptoms are mild in severity, no other aggravating or alleviating factors. 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 - Social history:: Smoking status: Patient denies any tobacco usage or history of. - Family history:: not pertinent. ROS: 03:17 Cardiovascular: Negative for chest pain, palpitations, and edema, Abdomen/GI: Negative rt for abdominal pain, nausea, vomiting, diarrhea, and constipation, MS/Extremity: Negative for injury and deformity, Skin: Negative for injury, rash, and discoloration. 03:17 Constitutional: Positive for fever, malaise. 03:17 Respiratory: Positive for cough, Negative for shortness of breath. Exam: 03:17 Constitutional: This is a well developed, well nourished patient who is awake, alert, rt and in no acute distress. Head/Face: Normocephalic, atraumatic. Chest/axilla: Normal chest wall appearance and motion. Nontender with no deformity. No lesions are appreciated. Cardiovascular: Regular rate and rhythm with a normal S1 and S2. No gallops, murmurs, or rubs. Normal PMI, no JVD. No pulse deficits. Respiratory: Lungs have equal breath sounds bilaterally, clear to auscultation and percussion. No rales, rhonchi or wheezes noted. No increased work of breathing, no retractions or nasal flaring. Abdomen/GI: Soft, non-tender, with normal bowel sounds. No distension or tympany. No guarding or rebound. No evidence of tenderness throughout. Skin: Warm, dry with normal turgor. Normal color with no rashes, no lesions, and no evidence of cellulitis. MS/ Extremity: Pulses equal, no cyanosis. Neurovascular intact. Full, normal range of motion. Neuro: Awake and alert, GCS 15, oriented to person, place, time, and situation. Cranial nerves II-XII grossly intact. Motor strength 5/5 in all extremities. Sensory grossly intact. Cerebellar exam normal. Normal gait. Psych: Awake, alert, with orientation to person, place and time. Behavior, mood, and affect are within normal limits. Vital Signs: 02:59 BP 121 / 80; Pulse 88; Resp 20; Temp 98.1; Pulse Ox 99% ; Pain 7/10; vc1 04:05 BP 125 / 78; Pulse 80; Resp 15 S; Pulse Ox 100% on R/A; kd3 02:59 Pain Scale: Adult vc1 MDM: 03:00 Patient medically screened. rt 03:46 Differential diagnosis: viral Infection, URI, COVID. Data reviewed: vital signs, nurses rt notes. Test considered but Not performed: X-ray: Clear breath sounds, stable vital signs, symptoms most likely viral in nature, x-rays not indicated to rule out pneumonia.. Care significantly affected by the following chronic conditions: Diabetes, Hypertension. Counseling: I had a detailed discussion with the patient and/or guardian regarding: the historical points, exam findings, and any diagnostic results supporting the discharge/admit diagnosis, lab results, the need for outpatient follow up. 02/21 03:00 Order name: SARS-COV-2 Antigen Rapid; Complete Time: 03:43 rt Administered Medications: 03:07 Drug: Ibuprofen PO 800 mg Route: PO; kd3 04:07 Follow up: Response: No adverse reaction kd3 Disposition Summary: 02/21/23 03:46 Discharge Ordered Location: Home rt Problem: new rt Symptoms: are unchanged rt Condition: Stable rt Diagnosis - Acute upper respiratory infection, unspecified rt Followup: rt - With: Private Physician - When: 2 - 3 days - Reason: Discharge Instructions: - Discharge Summary Sheet rt - Viral Respiratory Infection rt Forms: - Medication Reconciliation Form rt - Thank You Letter rt - Antibiotic Education rt - Prescription Opioid Use rt - Patient Portal Instructions rt - Leadership Thank You Letter rt Signatures: Dispatcher [employer] Milady Willis RN RN kd3 Chelly Macias RN RN vc1 Braxton Vizcaino MD MD rt
[2023-02-21 04:12] VITALS: TEMP 98.1
[2023-02-21 04:13] VITALS: BP 125/78; O2SAT 100
== END 2023-02-21 04:07 | disposition home or self-care (01) ==
LOC: ER 02:19
DX: J06.9 Acute upper respiratory infection, unspecified (principal); Z20.822 Contact with and (suspected) exposure to COVID-19
CPT/HCPCS: 36415; 87811; 99284

== ENCOUNTER 2023-03-01 19:41 | Emergency (ER) | payer OTHER ==
--- OUTSIDE RECORDS SUMMARY | 2023-03-01 20:33 | XMS REPORT | Continuity of Care Document ---
:1980 Author Organization [facility] t Address [address] [place] [address] Care Team Providers Name Role Phone [phone] Primary Care Physician Unavailable Bebeto Quiroga Attending Clinician Unavailable Elbert Wilson Attending Clinician Unavailable ORLY THORPE Attending Clinician Unavailable AMNA CUTLER Attending Clinician Unavailable KAVYA BLOCK Attending Clinician Unavailable VALDEZ MINOR Attending Clinician [...] Unavailable IVELISSE MORRISON Attending Clinician Unavailable Loni FAST FOOD FRY COOK, Katelyn Attending Clinician KATELYN IVEY Attending Clinician Unavailable FABIO ZAMORA Attending Clinician Unavailable YRIS HARRIS Attending Clinician Unavailable Delvin FREEMAN, Leslie Moanco Attending Clinician MERI WRAY Attending Clinician Unavailable Robert Lutz MD Attending Clinician Meri Wray MD Attending Clinician Silvina Vallecillo MD Attending Clinician [phone] BEATRIZ EDUARDO Attending Clinician Unavailable Alesha ANDERSON, [...] LILY DELEON Attending Clinician Unavailable Doctor Unassigned, [place] Attending Clinician Unavailable STANISLAW SUN Attending Clinician Unavailable ABHIJIT GALAN Attending Clinician Unavailable Kit Lopez Attending Clinician Unavailable KNOW, DOES_NOT Admitting Clinician Unavailable Katie Elbert Admitting Clinician Unavailable Physician, No Primary or [...] Date Expiration Date Nakul zavala [employer]IG[employer] GENERIC [id number] 2019 00:00:00 AETNA MP CVS 9 [id number] 2022 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 94 00:00:00 ON STAND [employer] COMMERCIAL [id number] 2022 OUT OF NETWORK 00:00:00 COMMERCIAL [id number] 2021 NON-CONTRACT 00:00:00 GENERIC Problems Condition Condition [...] esophagiti s s Hypertrigl Hypertrigl Disease Active K devi yceridemia yceridemia 2-28 Se ybold 00:00: [...] yceridemia yceridemia 2-16 it y of 00:00: [place] [facility] Essential Essential Disease Active Uni vers hypertensi hypertensi 5-26 it y of on on 00:: [place] [facility] POTS POTS Disease Active Univers (postural (postural 5-26 ity of orthostati [place]ost[place] 00 Medical tachycardi tachycardi Br anch a a syndrome) syndrome) Dyslipidem Dyslipidem Disease Active U nivers ia ia 5-26 ity of 00:00: [place] [facility] Atypical Atypical Disease Active Unive rs chest pain chest pain 5-25 it y of 00:00: [place] [facility] Pancreatit Pancreatit Disease Active U [...] 1-30 ity of incision incision 00:00: [place] [facility] Mood Mood Disease Active Univers [...] Formattin ity of 00:00: g of this 00 note Medical might be Branch different from the original. Immunize postpartu mICD10 Diagnosis Term Copyholder Utility Immune to Immune to Disease Active Uni vers varicella varicella 6- ity of 00:00: [place] 00 Medical Branch Morbid Morbid Disease Active Univers obesity obesity 3-02 ity of 00:00: [place] 00 Medical Branch Type 2 Type 2 Disease Active Overview: Univer s diabetes diabetes -06 Formattin ity of mellitus mellitus 00:00: g [...] 00 dic Hospita l alcohol FA Active ID [facility]ES [facility] 07-30 [place] 00:00: Orthope 00 dic Hosp[facility] l tequila DA Active ID hives [facility] 07-30 [place] 00:00: Orthope 00 dic Hospita l alcohol FA Active MO [facility] 01-15 [place] 00:00: Orthope 00 dic Hospita l alcohol FA Active MO HIVES TO [facility] [place] 01-15 [place] 00:00: Orthope 00 dic Hospita l tequila DA Active MO hives [facility] 01-09 [place] 00:00: Fonseca 00 [facility] Cefpodox Propensi Active Other (See Eye and M ethodi dewayne ty to Comments) 8-[address] adverse 00:00: Swelling Hospita reaction 00 30 mins l s to after drug taking medicatio n alcohol FA Active ID 2015-07 [facility] 09-06 [place] 00:00: Orthope 00 dic Hospita l alcohol FA Active ID TURNS RED 2015-07 [facility] 09-06 [place] 00:00: Orthope 00 dic Hospita l NO KNOWN Drug Active Univers ALLERGIE Class ity of S [place] [facility] Family History Family Member Diagnosis Comments Start Date Stop Date Source Natural brother Diabetes [facility] Natural father [facility] Natural mother Diabetes [facility] Natural sister Diabetes [facility] Social History Social Habit Start Date Stop Date Quantity Comments Source Gender identity [facility] Sexual orientation [facility] History SDOH Social Unive rsity of [facility] Med ical Together Branch History SDOH Social Unive rsity of [facility] Medical Branch History SDOH Social Unive rsity of [facility] Medical Membership Branch History SDOH Social Unive rsity of [facility] Medical Meetings Branch History SDOH Social 2023-01-11 2023-01-11 5 Unive rsity of Connections Phone 00:00:00 00:00:00 [place] M ed[facility] History SDOH Social 2023-01-11 2023-01-11 5 Unive rsity of Connections Living 00:00:00 00:00:00 [place] [facility] History SDOH 2023-01-11 2023-01-11 0 University o f Physical Activity 00:00:00 00:00:00 [place] [facility] DPW Branch History SDOH 2023-01-11 2023-01-11 0 University o f Physical Activity 00:00:00 00:00:00 [place] [facility] MPS Branch History SDOH 2023-01-11 2023-01-11 5 University o f Financial 00:00:00 00:00:00 [place] [facility] History SDOH Food 2023-01-11 2023-01-11 1 Univers ity of Worry 00:00:00 00:00:00 [place] [facility] History SDOH Food 2023-01-11 2023-01-11 1 Univers ity of Scarcity 00:00:00 00:00:00 [place] [facility] History SDOH 2023-01-11 2023-01-11 2 University o f Transport Med 00:00:00 00:00:00 [place] [facility] al [facility] History SDOH 2023-01-11 2023-01-11 2 University o f Transport Non-Med 00:00:00 00:00:00 [place] M edical [facility] History SDOH 2023-01-11 2023-01-11 2 University o f Housing Unable to 00:00:00 00:00:00 [place] M [facility] Pay Branch History SDOH 2023-01-11 2023-01-11 1 University o f Housing Places 00:00:00 00:00:00 [place] [facility]i bonita Lived Branch History SDOH 2023-01-11 2023-01-11 2 University o f Housing Homeless 00:00:00 00:00:00 Charlie wallis Last Year Branch Education 2023-01-10 2023-01-10 14 University of 00:00:00 00:00:00 [facility] Branch Exposure to 2022-10-24 2022-11-03 Not sure University of SARS-CoV-2 (event) 00:00:00 08:52:00 [facility] Tobacco use and 2022-08-26 2022-08-26 Smokeless Universit y of exposure 00:00:00 00:00:00 tobacco non-user [facility] Alcohol intake 2019-11-22 2019-11-22 Current drinker [facility]o dist 00:00:00 00:00:00 of [facility] ([facility]) History of Social 2019-11-22 2019-11-[address] function 00:00:00 00:00:00 Hospital History [facility] 2019-11-22 2019-11-22 2 [facility] Alcohol Frequency 00:00:00 00:00:00 Hospita l History [facility] 2019-11-22 2019-11-22 1 [facility] Alcohol Std Drinks 00:00:00 00:00:00 Hospit al History [facility] 2019-11-22 2019-11-22 1 [facility] Alcohol Binge 00:00:00 00:00:00 Hospital Alcohol Comment 2016-09-09 2016-09-09 Megan joe. Meth odist 00:00:00 00:00:00 Hospital Sex Ass[birth year] At [birth year] [facility] 00:00:00 00:00:00 Hospital Smoking Status Start Date Stop Date Source Never smoked tobacco [facility] Medications Ordered Filled Start Stop Current Ordering Indication Dosage Frequency Signature Comments Components Source Medication Medication Date Date Medication? Clinician (SIG) Name Name Lisinopril Yes 5mg Take 1 Kelse y 5 MG oral 8-10 tablet (5 Seybo ld Tablet 16:33: mg total) - 29 by mouth Externa daily l Fluconazole 2022-0 2022- Yes [id number] 150mg Take 1 Andreea 150 MG oral 8-10 08-11 tablet Seybo ld Tablet 00:00: 04:59 (150 mg - 00 :00 total) by Externa mouth once l for 1 dose Meloxicam Yes [id number] TAKE 1 Andreea 15 MG oral 7-26 9107 TABLET BY Seyb old Tablet 00:00: MOUTH - 00 EVERY DAY Externa NEEDED l FOR PAIN Seney-3 Yes 1{capsu Take 1 Unive rs Fatty 7-05 le} capsule by ity of Acids-Vitam 11:23: mouth [place] the Medical 2,000-650-1 morning Branc h 2 mg/2.5 and 1 gram ElPk capsule in the evening. insulin Yes 16U inject 16 Unive rs aspart 01-12 Units ity of injection 11:23: under the [...] (FARXIGA 44 dose Medical ORAL) Branch doxycycline 2022- Yes [id number] 100mg Take 1 Univers hyclate 100 01-1216 capsule by i ty of mg capsule 00:00: 04:59 mouth [place] 00 :00 every 12 Medical (twelve) Branch hours for 10 days. metroNIDAZO 2022- Yes [id number] 500mg Take 1 Univers LE 500 mg 01-12 tablet by ity of tablet 00:00: 04:59 mouth [place] 00 :00 every 12 Medical (twelve) Branch hours for 10 days. ondansetron 2022- Yes [id number] 4mg Take 1 Univers 4 mg 01-12 [...] ity of (Vibramycin 23:00: 22:59 Q12HA2, 10 [place] ) capsule 00 :00 doses, Medical 100 mg First dose Branch on Tue01/10/23 at 1800, Last dose on Tue01/15/23 at 0600, MALAIKA
Re ason for Anti-Infec [...] 2022- Yes 2g 2 g, Univers in 01-10 Intravenou ity of dextrose, 21:00: 20:59 s, [...] 17 Starting Medical NaCl 0.9% on Tue Branch (NS) 50 mL 01/10/23 at IV 1430, [...] on for Anti-Infec tive: Documented Infection< br>Documen fiath Infection Site: Pelvic
Duration of Therapy: Other [...] 01-10 Oral, ity of (TYLENOL) 16:08: Q6HPRN, [place] tablet 650 14 Starting Medic al mg on Tue Branch 01/10/23 at 1108, Until Discontinu ed, Routine, Pain (scale 1-3) iopamidol 2022- No [id number] 73mL 73 mL, Univers (ISOVUE 01-10 Intravenou [...] 26 by mouth Externa daily l Spironolact 2022-2022- Yes [id number] 100mg Take 1 Andreea one 100 MG 6-27 12-25 tablet Seybol d oral Tablet 00:00: 05:59 (100 mg - 00 :00 total) by Externa mouth at l bedtime With full glass of water. Spironolact 0 2022- Yes [id number] 100mg Take 1 Andreea one 100 MG [...] 2022- No 1{tbl} 1 tablet Andreea in 12-21- daily Seybold Propanediol 14:32: 00:00 - () 34 :00 Externa 10 MG oral l Tablet Lisinopril 2022-0 Yes 5mg Take 1 Kelse y 5 MG oral 6-13 tablet (5 Seybo ld Tablet 14:00: mg total) - 59 by mouth Externa daily l Ezetimibe 2022-0 Yes [id number] 10mg Take 1 K elsey 10 MG oral 6-13 tablet (10 Sey bold Tablet 00:00: mg total) - 00 by mouth Externa daily l Dapaglifloz 2022-0 Yes [id number] 1{tbl} Take 1 Andreea in 6-13 3 tablet by Seybold Propanediol 00:00: mouth - (xiga) 00 daily Externa 10 MG oral l Tablet Insulin 2022-0 Yes [id number] Inject 12 Andreea Aspart 6-13 3 units Plus Seybold (NovoLOG 00:00: sliding - FlexPen) 00 scale 2 Externa 100 UNIT/ML unit for l subcutaneou every 50 s Solution above 150 Pen-injecto (maximum r 70 units per day) Ezetimibe 2022-0 Yes [id number] 10mg Take 1 K elsey 10 MG oral 6-13 tablet (10 Sey bold Tablet 00:00: mg total) - 00 by mouth Externa daily l Dapaglifloz 2022-0 Yes [id number] 1{tbl} Take 1 Andreea in 6-13 3 tablet by Seybold Propanediol 00:00: mouth - (xi) 00 daily Externa 10 MG oral l Tablet Insulin 2022-0 Yes [id number] Inject 12 Andreea Aspart 6-13 3 units Plus Seybold (NovoLOG 00:00: sliding - FlexPen) 00 scale 2 Externa 100 UNIT/ML unit for l subcutaneou every 50 s Solution above 150 Pen-injecto (maximum r 70 units per day) Ezetimibe 2022-0 Yes [id number] 10mg Take 1 K elsey 10 MG oral 6-13 tablet (10 Sey bold Tablet 00:00: mg total) - 00 by mouth Externa daily l Dapaglifloz 2022-0 Yes [id number] 1{tbl} Take 1 Andreea in 6-13 3 tablet by Seybold Propanediol 00:00: mouth - (xiga) 00 daily Externa 10 MG oral l Tablet Insulin 2022-0 Yes [id number] Inject 12 Andreea Aspart 6-13 3 units [...] - TABLET SR 56 :00 by mouth Consulting Solution Director a 24 HR daily l Pantoprazol 2022- [...] mouth 4 Externa times l daily Dapaglifloz 0 Yes 1{tbl} 1 tablet Andreea in 12-17 daily Seybold Propanediol 14:57: - (Farxiga) 18 Externa 10 MG oral l Tablet Lisinopril 0 Yes 5mg Take 1 Kelse y 5 MG oral 12-17 tablet (5 Seybo ld Tablet 14:57: mg total) - 18 by mouth Externa daily l Seney-3 2022-0 Yes [id number] 1999{ca Take 2,000 Andreea 1000 MG 12-17 psule} capsules Seybol d oral 00:00: by mouth 2 - Capsule 00 times Externa daily l Trazodone 2022-0 Yes [id number] 50mg Take 1 Spencer sey HCl 50 MG 6-09 tablet (50 Seyb old oral Tablet 00:00: mg total) - 00 by mouth Externa nightly l Fluoxetine 2022-0 Yes [id number] 20mg Take 1 Andreea HCl 20 MG 6-09 capsule Seybold oral 00:00: (20 mg - Capsule 00 total) by Externa mouth l daily busPIRone 2022-0 Yes [id number] 10mg Take 1 K elsey HCl 10 MG 6-09 tablet (10 Seyb old oral Tablet 00:00: mg total) - 00 by mouth 2 Externa times l daily Trazodone 2022-0 Yes [id number] 50mg Take 1 Spencer sey HCl 50 MG 6-09 tablet (50 Seyb old oral Tablet 00:00: mg total) - 00 by mouth Externa nightly l Fluoxetine 2022-0 Yes [id number] 20mg Take 1 Andreea HCl 20 MG 6-09 capsule Seybold oral 00:00: (20 mg - Capsule 00 total) by Externa mouth l daily busPIRone 2022-0 Yes [id number] 10mg Take 1 K elsey HCl 10 MG 6-09 tablet (10 Seyb old oral Tablet 00:00: mg total) - 00 by mouth 2 Externa times l daily Icosapent 2022-0 Yes [id number] 2{capsu Take 2 Andreea Ethyl 1 g 6-09 le} capsules Seybol d oral 00:00: by mouth 2 - Capsule 00 times Externa daily l Fluoxetine 2022-0 Yes [id number] 20mg Take 1 Andreea HCl 20 MG 6-09 capsule Seybold oral 00:00: (20 mg - Capsule 00 total) by Externa mouth l daily busPIRone 2022-0 Yes [id number] 10mg Take 1 K elsey HCl 10 MG 6-09 tablet (10 Seyb old oral Tablet 00:00: mg total) - 00 by mouth 2 Externa times l daily Icosapent 2022-0 Yes [id number] 2{capsu Take 2 Andreea Ethyl 1 g 6-09 le} capsules Seybol d oral 00:00: by mouth 2 - Capsule 00 times Externa daily l Fluoxetine 2022-0 Yes [id number] 20mg Take 1 Andreea HCl 20 MG 6-09 capsule Seybold oral 00:00: (20 mg - Capsule 00 total) by Externa mouth l daily busPIRone 2022-0 Yes [id number] 10mg Take 1 K elsey HCl 10 MG 6- tablet (10 Seyb old oral Tablet 00:00: mg total) - 00 by mouth 2 Externa times l daily Icosapent 2022-0 Yes [id number] 2{capsu Take 2 Andreea Ethyl 1 g - le} capsules Seybol d oral 00:00: by mouth 2 - Capsule 00 times Externa daily l Trazodone 2022-0 2023- No [id number] 50mg Take 1 Ke lsey HCl 50 MG -03 16- tablet (50 Sey bold oral Tablet 00:00: 00:00 mg total) - 00 :00 by mouth Externa nightly l Meloxicam 2022-0 Yes [id number] TAKE 1 Andreea 15 MG oral 5-25 9107 TABLET BY Seyb old Tablet 00:00: MOUTH - 00 EVERY DAY Externa NEEDED l FOR PAIN Meloxicam 2022-0 Yes [id number] TAKE 1 Andreea 15 MG oral 5-25 9107 TABLET BY Seyb old Tablet 00:00: MOUTH - 00 EVERY DAY Externa NEEDED l FOR PAIN Meloxicam 2022-0 Yes [id number] TAKE 1 Andreea 15 MG oral 5-25 9107 TABLET BY Seyb old Tablet 00:00: MOUTH - 00 EVERY DAY Externa NEEDED l FOR PAIN Hydrocortis 2022-0 2022- No TAKE 2 Spencer sey one 10 MG 5-25 06- TABLET BY Seyb old oral Tablet 00:00: 00:00 MOUTH IN - 00 :00 THE Externa MORNING l AND 1 TABLET BY MOUTH IN THE EVENING busPIRone 2022-0 2022- No Andreea HCl 10 MG 5-24 06-09 Seybold oral Tablet 00:00: 00:00 - 00 :00 Externa l Fluoxetine 3-0 2022- No Andreea HCl 20 MG 5-24 06- Seybold oral 00:00: 00:00 - Capsule 00 :00 Externa l Trazodone 2022-0 2022- No Andreea HCl 50 MG 5-24 06-09 Seybold oral Tablet 00:00: 00:00 - 00 :00 Externa l Promethazin 2022-0 Yes [id number] TAKE 1 TAB Andreea e HCl 5-21 (25 MG) BY Seybold (PHENERGAN) 00:00: MOUTH - 25 MG oral 00 EVERY 6 Consulting Solution Director a Tablet HOURS l NEEDED FOR NAUSEA / VOMITING Promethazin 2022-0 Yes [id number] TAKE 1 TAB Andreea e HCl 5-21 (25 MG) BY Seybold (PHENERGAN) 00:00: MOUTH - 25 MG oral 00 EVERY 6 Consulting Solution Director a Tablet HOURS l NEEDED FOR NAUSEA / VOMITING Promethazin 2022-0 Yes [id number] TAKE 1 TAB Andreea e HCl 5-21 (25 MG) BY Seybold (PHENERGAN) 00:00: MOUTH - 25 MG oral 00 EVERY 6 Consulting Solution Director a Tablet HOURS l NEEDED FOR NAUSEA / VOMITING Promethazin 2022-0 Yes [id number] TAKE 1 TAB Andreea e HCl 5-21 (25 MG) BY Seybold (PHENERGAN) 00:00: MOUTH - 25 MG oral 00 EVERY 6 Consulting Solution Director a Tablet HOURS l NEEDED FOR NAUSEA / VOMITING HYDROcodone 2022- No 1{tbl} Q.25D Take 1 Andreea -Acetaminop 5-12-17 tablet by Se ybold hen 10-325 00:00: 00:00 mouth - MG oral 00 :00 every 6 Externa Tablet hours as l needed FOR PAIN Phenazopyri 2022- No 100mg Take 1 Ke lsey dine HCl -29 12- tablet Seybold 100 MG oral 00:00: 00:00 (100 mg - Tablet 00 :00 total) by Externa mouth 3 l times daily Ezetimibe 2022- No TAKE 1 Kelse y 10 MG oral 11-14- TABLET (10 Se ybold Tablet 00:00: 00:00 MG) BY - 00 :00 MOUTH Externa DAILY. l Icosapent 2022-2022- No TAKE 2 Kelse y Ethyl 1 g 11-14- CAPSULES Seybo ld oral 00:00: 00:00 BY [...] bonita 1:1:1 Wed Branch ([facility] 11[facility]03[facility]22 at [facility]) 0945, oral Routine suspension 15 mL ketorolac [...] Wed Branch 11/03/22 at 0930, MALAIKA dicyclomine 0 Yes [id number] 20mg Take 1 Univers 20 mg 4-26 tablet by ity of tablet 00:00: mouth 4 [place] 00 (four) Medical times Branch daily as needed for Abdominal pain. ondansetron 0 Yes [id number] 4mg Take 1 Univers 4 mg 4-26 tablet by ity of disintegrat 00:00: mouth [place] ing tablet 00 every 12 Medic al (twelve) Branch hours as needed for Nausea and Vomiting (N/V). dicyclomine 2022- No [id number] 20mg Take 1 Univers 20 mg 4-26 07-03 tablet by ity of tablet 00:00: 00:00 mouth 4 [place] 00 :00 (four) Medical times Branch daily as needed for Abdominal pain. ondansetron 2022- No [id number] 4mg Take 1 Univers 4 mg 4-26 07-03 tablet by ity of disintegrat 00:00: 00:00 mouth [place] tablet 00 :00 every 12 Medic al (twelve) Branch hours as needed for Nausea and Vomiting (N/V). Dicyclomine 2022- No 20mg Q.25D Take 1 Ke lsey HCl 20 MG - 06-09 tablet (20 Sey bold oral Tablet 00:00: 00:00 mg total) - 00 :00 by mouth 4 Externa times l daily as needed Ondansetron 2022-0 2022- No TAKE 1 Spencer sey (ZOFRAN) 4 - 06-09 TABLET BY Sey bold MG oral 00:00: 00:00 MOUTH - TABLET 00 :00 EVERY 12 Externa DISPERSIBLE HOURS l NEEDED FOR NAUSEA AND VOMITING Atorvastati 0 Yes [id number] 80mg Take 1 Andreea n Calcium 4-18 tablet (80 Seyb old 80 MG oral 00:00: mg total) - Tablet 00 by mouth Externa daily l Insulin 2022-0 Yes [id number] 10U Inject 10 Andreea Aspart 4-18 3 units into Seybold (NovoLOG 00:00: the skin 3 - FlexPen) 00 times Externa 100 UNIT/ML daily l subcutaneou (before s Solution meals) Pen-injecto Plus r sliding scale 1 unit for every 50 above 150 (maximum 50 units per day) Insulin Yes [id number] 100U Inject 100 Andreea Glargine 4-18 3 units into Seybo ld (Basaglar 00:00: the skin - KwikPen) 00 at bedtime Exter na 100 UNIT/ML l subcutaneou s Solution Pen-injecto r Metformin 0 Yes [id number] 1000mg Take 1 Andreea HCl 1000 MG 4-18 3 tablet Seybol d oral Tablet 00:00: (1,000 mg - 00 total) by Externa mouth in l the morning and 1 tablet (1,000 mg total) in the evening. Take with meals. Atorvastati Yes [id number] 80mg Take 1 Andreea n Calcium 4-18 tablet (80 Seyb old 80 MG oral 00:00: mg total) - Tablet 00 by mouth Externa daily l Insulin Yes [id number] 100U Inject 100 Andreea Glargine 4-18 3 units into Seybo ld (Basaglar 00:00: the skin - KwikPen) 00 at bedtime Exter na 100 UNIT/ML l subcutaneou s Solution Pen-injecto r Metformin 2022-0 Yes [id number] 1000mg Take 1 Andreea HCl 1000 MG 4-18 3 tablet Seybol d oral Tablet 00:00: (1,000 mg - 00 total) by Externa mouth in l the morning and 1 tablet (1,000 mg total) in the evening. Take with meals. Atorvastati Yes [id number] 80mg Take 1 Andreea n Calcium 4-18 tablet (80 Seyb old 80 MG oral 00:00: mg total) - Tablet 00 by mouth Externa daily l Insulin Yes [id number] 100U Inject 100 Andreea Glargine 4-18 3 units into Seybo ld (Basaglar 00:00: the skin - KwikPen) 00 at bedtime Exter na 100 UNIT/ML l subcutaneou s Solution Pen-injecto r Metformin 0 Yes [id number] 1000mg Take 1 Andreea HCl 1000 MG 4-18 3 tablet Seybol d oral Tablet 00:00: (1,000 mg - 00 total) by Externa mouth in l the morning and 1 tablet (1,000 mg total) in the evening. Take with meals. Atorvastati Yes [id number] 80mg Take 1 Andreea n Calcium 4-18 tablet (80 Seyb old 80 MG oral 00:00: mg total) - Tablet 00 by mouth Externa daily l Insulin 2022-0 Yes [id number] 100U Inject 100 Andreea Glargine 4-18 3 units into Seybo ld (Basaglar 00:00: the skin - KwikPen) 00 at bedtime Exter na 100 UNIT/ML l subcutaneou s Solution Pen-injecto r Metformin 0 Yes [id number] 1000mg Take 1 Andreea HCl 1000 MG 4-18 3 tablet Seybol d oral Tablet 00:00: (1,000 mg - 00 total) by Externa mouth in l the morning and 1 tablet (1,000 mg total) in the evening. Take with meals. Insulin 2022- No [id number] 10U Inject 10 Andreea Aspart 4-18 06-13 [...] - 28 Externa l Meloxicam 0 Yes [id number] 15mg QD Take 1 Andreea 15 MG [...] times - 34 daily Externa l Atorvastati 2023-0 Yes 80mg Take 80 mg Andreea n [...] daily - 34 Externa l Continuous Yes [id number] Use as Andreea Blood Gluc 3-03 3 directed Seybo ld Transmit 00:00: for - (Dexcom G6 00 continuous Ext john Transmitter glucose l ) does not monitoring apply Misc with Dexcom system Continuous Yes [id number] Use as Andreea Blood Gluc 3-03 3 directed Seybo ld Dairy Lab Technician 00:00: for - (Dexcom G6 00 continuous Ext john Dairy Lab Technician) glucose l does not monitoring apply Device Continuous Yes [id number] Use as Andreea Blood Gluc 3-03 3 directed Seybo ld Sensor 00:00: for - (Dexcom G6 00 continuous Ext john Sensor) glucose l does not monitoring apply Misc with Dexcom system Ostomy Yes [id number] Use as Ke lsey Supplies 3-03 3 directed Seybold (Skin Tac 00:00: for - Adhesive 00 continuous Exter na Barrier glucose l Wipe) does monitoring not apply with Misc Dexcom system Fenofibrate Yes [id number] 160mg Take 1 Andreea 160 MG oral 3-03 tablet Seybol d Tablet 00:00: (160 mg - 00 total) by Externa mouth l daily Insulin Yes [id number] 10U Inject 10 Andreea Aspart 3-03 3 units into Seybold (NovoLOG 00:00: the skin 3 - FlexPen) 00 times Externa 100 UNIT/ML daily l subcutaneou (before s Solution meals) Pen-injecto Plus r sliding scale 1 unit for every 50 above 150 (maximum 50 units per day) Continuous Yes [id number] Use as Andreea Blood Gluc 3-03 3 directed Seybo ld Transmit 00:00: for - (Dexcom G6 00 continuous Ext john Transmitter glucose l ) does not monitoring apply Misc with Dexcom system Continuous Yes [id number] Use as Andreea Blood Gluc 3-03 3 directed Seybo ld Dairy Lab Technician 00:00: for - (Dexcom G6 00 continuous Ext john Dairy Lab Technician) glucose l does not monitoring apply Device Continuous Yes [id number] Use as Andreea Blood Gluc 3-03 3 directed Seybo ld Sensor 00:00: for - (Dexcom G6 00 continuous Ext john Sensor) glucose l does not monitoring apply Misc with Dexcom system Ostomy Yes [id number] Use as Ke lsey Supplies 3-03 3 directed Seybold (Skin Tac 00:00: for - Adhesive 00 continuous Exter na Barrier glucose l Wipe) does monitoring not apply with Misc Dexcom system Fenofibrate Yes [id number] 160mg Take 1 Andreea 160 MG oral 3-03 tablet Seybol d Tablet 00:00: (160 mg - 00 total) by Externa mouth l daily Continuous Yes [id number] Use as Andreea Blood Gluc 3-03 3 directed Seybo ld Transmit 00:00: for - (Dexcom G6 00 continuous Ext john Transmitter glucose l ) does not monitoring apply Misc with Dexcom system Continuous Yes [id number] Use as Andreea Blood Gluc 3-03 3 directed Seybo ld Dairy Lab Technician 00:00: for - (Dexcom G6 00 continuous Ext john Dairy Lab Technician) glucose l does not monitoring apply Device Continuous 0 Yes [id number] Use as Andreea Blood Gluc 3-03 3 directed Seybo ld Sensor 00:00: for - (Dexcom G6 00 continuous Ext john Sensor) glucose l does not monitoring apply Misc with Dexcom system Ostomy Yes [id number] Use as Ke lsey Supplies 3-03 3 directed Seybold (Skin Tac 00:00: for - Adhesive 00 continuous Exter na Barrier glucose l Wipe) does monitoring not apply with Misc Dexcom system Fenofibrate Yes [id number] 160mg Take 1 Andreea 160 MG oral 3-03 tablet Seybol d Tablet 00:00: (160 mg - 00 total) by Externa mouth l daily Continuous Yes [id number] Use as Andreea Blood Gluc 3-03 3 directed Seybo ld Transmit 00:00: for - (Dexcom G6 00 continuous Ext john Transmitter glucose l ) does not monitoring apply Misc with Dexcom system Continuous Yes [id number] Use as Andreea Blood Gluc 3-03 3 directed Seybo ld Dairy Lab Technician 00:00: for - (Dexcom G6 00 continuous Ext john Dairy Lab Technician) glucose l does not monitoring apply Device Continuous Yes [id number] Use as [place] Blood Gluc 3-03 3 directed Seybo ld Sensor 00:00: for - (Dexcom G6 00 continuous Ext john Sensor) glucose l does not monitoring apply Misc with Dexcom system Ostomy Yes [id number] Use as Ke lsey Supplies 3-03 3 directed Seybold (Skin Tac 00:00: for - Adhesive 00 continuous Exter na Barrier glucose l Wipe) does monitoring not apply with Misc Dexcom system Fenofibrate Yes [id number] 160mg Take 1 [place] 160 MG oral 3-03 tablet Seybol d Tablet 00:00: (160 mg - 00 total) by Externa mouth l daily Continuous Yes [id number] Use as [place] Blood Gluc 3-03 3 directed Seybo ld Transmit 00:00: for - (Dexcom G6 00 continuous Ext john Transmitter glucose l ) does not monitoring apply Misc with Dexcom system Continuous Yes [id number] Use as [place] Blood Gluc 3-03 3 directed Seybo ld Dairy Lab Technician 00:00: for - (Dexcom G6 00 continuous Ext john Dairy Lab Technician) glucose l does not monitoring apply Device Continuous 0 Yes [id number] Use as [place] Blood Gluc 3-03 3 directed Seybo ld Sensor 00:00: for - (Dexcom G6 00 continuous Ext john Sensor) glucose l does not monitoring apply Misc with Dexcom system Fenofibrate Yes [id number] 160mg Take 1 [place] 160 MG oral 3-03 tablet Seybol d Tablet 00:00: (160 mg - 00 total) by Externa mouth l daily Continuous Yes [id number] Use as [place] Blood Gluc 3-03 3 directed Seybo ld Transmit 00:00: for - (Dexcom G6 00 continuous Ext john Transmitter glucose l ) does not monitoring apply Misc with Dexcom system Continuous Yes [id number] Use as [place] Blood Gluc 3-03 3 directed Seybo ld Dairy Lab Technician 00:00: for - (Dexcom G6 00 continuous Ext john Dairy Lab Technician) glucose l does not monitoring apply Device Continuous Yes [id number] Use as [place] Blood Gluc 3-03 3 directed Seybo ld Sensor 00:00: for - (Dexcom G6 00 continuous Ext john Sensor) glucose l does not monitoring apply Misc with Dexcom system Ostomy Yes [id number] Use as Ke lsey Supplies 3-03 3 directed Seybold (Skin Tac 00:00: for - Adhesive 00 continuous Exter na Barrier glucose l Wipe) does monitoring not apply with Misc Dexcom system Fenofibrate Yes [id number] 160mg Take 1 [place] 160 MG oral 3-03 tablet Seybol d Tablet 00:00: (160 mg - 00 total) by Externa mouth l daily Insulin Yes [id number] 10U Inject 10 [place] Aspart 3-03 3 units into Seybold (NovoLOG 00:00: the skin 3 - FlexPen) 00 times Externa 100 UNIT/ML daily l subcutaneou (before s Solution meals) Pen-injecto Plus r sliding scale 1 unit for every 50 above 150 (maximum 50 units per day) Ostomy 2022- No [id number] Use as K elsey Supplies 3-03 08-10 3 directed Seybol d (Skin Tac 00:00: 00:00 for - Adhesive 00 :00 continuous Exter na Barrier glucose l Wipe) does monitoring not apply with Misc Dexcom system Insulin Yes [id number] 100U Inject 100 [place] Glargine 3-01 3 units into Seybo ld (Basaglar 00:00: the skin - KwikPen) 00 at bedtime Exter na 100 UNIT/ML l subcutaneou s Solution Pen-injecto r Seney-3 Yes [id number] 1000{ca Take 1,000 [place] 1000 MG 3-01 psule} capsules Seybol d oral 00:00: by mouth 3 - Capsule 00 times Externa daily l Insulin Yes [id number] 100U Inject 100 [place] Glargine 3-01 3 units into Seybo ld (Basaglar 00:00: the skin - KwikPen) 00 at bedtime Exter na 100 UNIT/ML l subcutaneou s Solution Pen-injecto r Seney-3 Yes [id number] 1000{ca Take 1,000 [place] 1000 MG 3-01 psule} capsules Seybol d oral 00:00: by mouth 3 - Capsule 00 times Externa daily l Seney-3 2022- No [id number] 1000{ca Take 1,000 [place] 1000 MG 3-01 06-09 psule} capsules Seybo ld oral 00:00: 00:00 by mouth 3 - Capsule 00 :00 times Externa daily l Insulin 2022- No [id number] 10U Inject 10 [place] Aspart 3-01 03-03 3 units into Seybol d (NovoLOG 00:00: 00:00 the skin 3 - FlexPen) 00 :00 times Externa 100 UNIT/ML daily l subcutaneou (before s Solution meals) Pen-injecto r Seney-3 2022- No Take by [place] 1000 MG [...] daily - 44 :00 Externa l Metformin Yes 1000mg Take 1,000 [place] HCl 1000 [...] Dapaglifloz Yes 1{tbl} 1 tablet [place]a in 2-28 [...] Tablet 14:59: daily - 38 Externa l Seney-3 Yes [id number] 1000{ca Take 1,000 [place] 1000 MG 2-28 psule} capsules Seybol d oral 00:00: by mouth 3 - Capsule 00 times Externa daily l Insulin Yes [id number] 10U Inject 10 [place] Aspart 2-28 3 units into Seybold (NovoLOG 00:00: the skin 3 - FlexPen) 00 times Externa 100 UNIT/ML daily l subcutaneou (before s Solution meals) Pen-injecto r Insulin Yes [id number] 100U Inject 100 [place] Glargine 2-28 3 units into Seybo ld (Basaglar 00:00: the skin - KwikPen) 00 at bedtime Exter na 100 UNIT/ML l subcutaneou s Solution Pen-injecto r Insulin 0 2022- No [id number] 100U Inject 100 [place] Glargine 2-28 02-28 3 units into Seyb old (Basaglar 00:00: 00:00 the skin - KwikPen) 00 :00 at bedtime Exter na 100 UNIT/ML l subcutaneou s Solution Pen-injecto r KCL 2022-0 2022- No 40meq 40 mEq, Univers (KLOR-CON 2-20 02-20 Oral, ity of M20) tablet 15:15: 14:47 ONCE, 1 [place] 40 mEq 00 :00 dose, On Medical Tue Branch 08/30/22 at 0915, Routine Sliding Yes [...] Until 08/30/22 at 0825, Routine insulin Yes [id number] 72U inject 72 Univers degludec 2-20 Units ity of (TRESIBA 00:00: [place] FLEXTOUCH 00 skin 2 Medical U-100) 100 (two) Branch unit/mL (3 times mL) InPn daily. insulin Yes [id number] 72U inject 72 Univers degludec 2-20 Units ity of (TRESIBA 00:00: [place] FLEXTOUCH 00 skin 2 Medical U-100) 100 (two) Branch unit/mL (3 times mL) InPn daily. insulin Yes [id number] 72U inject 72 Univers degludec 2-20 Units ity of (TRESIBA 00:00: [place] FLEXTOUCH 00 skin 2 Medical U-100) 100 (two) Branch unit/mL (3 times mL) InPn daily. insulin 2022- No [id number] 72U inject 72 Univers degludec 2-20 07-03 Units ity of (TRESIBA 00:00: 00:00 under the [place] as FLEXTOUCH 00 :00 skin 2 Medical U-100) 100 (two) Branch unit/mL (3 times mL) InPn daily. atorvastati 2022- No [id number] 80mg Take 1 Univers n 80 mg 2-20 09-30 tablet by ity of tablet 00:00: 04:59 mouth at [place] 00 :00 bedtime Medical for 30 Branch days. FORTUNATO, 2022- No [id number] 1g Take 1 Un fabiana omega-3-aci 08-30 capsule by i ty of d ethyl 00:00: 04:59 mouth in [place] esters, 1 00 :00 the Medical gram morning Branch capsule and 1 capsule in the evening. Do all this for 30 days. atorvastati 2022- No [id number] 80mg Take 1 Univers n 80 mg 08-30 tablet by ity of tablet 00:00: 04:59 mouth at [place] 00 :00 bedtime Medical for 30 Branch days. FORTUNATO, 2022- No [id number] 1g Take 1 Un fabiana omega-3-aci 08-30 capsule by i ty of d ethyl 00:00: 04:59 mouth in [place] esters, 1 00 :00 the Medical gram [...] 2-18 Oral, ity of (TYLENOL) 18:48: Q6HPRN, [place] tablet 650 59 Starting Medic al mg [...] No 1000mL at 100 Uni vers NaCl 08-28- mL/hr, ity of (1/2NS) IV 14:30: 21:45 [...] 2-17 Oral, ity of ESTRIL) 15:00: DAILY, [place] tablet 2.5 00 First dose Med ical mg on Tue Branch 08/27/22 at 0900, Until Discontinu ed, Routine fenofibrate 2022-0 Yes 134mg 134 mg, Un fabiana micronized -17 Oral, ity of (LOFIBRA) 15:00: DAILY, [place] capsule 134 00 First dose Me dical mg on Tue Branch 08/27/22 at 0900, Until Discontinu ed, Routine gabapentin 2022-0 Yes 600mg 600 mg, Uni vers (NEURONTIN) -17 Oral, BID, it y of tablet 600 02:00: First dose [place] mg 00 on [facility] Medical 08/26/22 at Branch 1999, Until Discontinu ed, Routine insulin 2022-0 2023- No .1U/kg/ 0.1 Univer s regular in 08-27 02-20 h Units/kg/h it y of 0.9 % NaCl 02:00: 14:25 [place] ?108.8 [place] (MYXREDLIN) 00 :34 kg (10.88 Med ical 100 mL/hr), IV Branch unit/100 mL Infusion, (1 unit/mL) CONTINUOUS RTU IV , Starting infusion on Rachael 2/16/[address] insulin infusion at 0.1 u/kg/hr and keep fixed at that rate. Hold insulin infusion x 1 hour and NHO if BG < 140 mg/dL for instructio ns to increase dextrose fluids. Restart once BG >/= 140 mg/dL
magnesium 2022-0 2022- No 2g 2 g, IV Univ ers sulfate in 08-2717 Piggyback, it y of water 2 01:30: [...] CONTINUOUS Medic al , Starting Branch on [facility] 08/26/22 at 1800, Until 08/29/22 at 1545, Routine LOVAZA Yes 2{capsu 2 g (2 Univer s (omega-3-ac 08-26 le} capsule), ity of id ethyl 23:00: Oral, BID, [place] as esters) 00 First dose Medica l capsule 2 g on [facility] 08/26/22 at 1700, Until Discontinu ed, Routine atorvastati Yes 80mg 80 mg, Univ ers n (LIPITOR) 2-16 Oral, QHS, it y of tablet 80 23:00: First dose [place] mg 00 on [facility] 08/26/22 at Branch 1700, Until Discontinu ed, Routine insulin 2022- No 8U 8 Units, Unive rs regular 08-26 Slow IV ity of human 23:00: 23:06 [place], [place] (HUMULIN R) 00 :00 ONCE, 1 Medic al injection 8 dose, On Bran ch Units [facility] 08/26/22 at 1700, STAT
In dication for insulin: Hyperglyce shea NaCl 0.9% 2022- No 2000mL at 999 Uni vers (NS) bolus 08-26 mL/hr, ity of infusion 21:45: 23:52 2,000 mL, [place] as 2,000 mL 00 :00 IV Medical Piggyback, Branch ONCE, 1 dose, On [facility] 08/26/22 at 1545, STAT insulin 2022- No 10U 10 Units, Univ ers regular 08-26 Slow IV ity of human 21:00: 21:11 [place], [place] (HUMULIN R) 00 :00 ONCE, 1 Medic al injection dose, On Branch 10 Units [facility] 08/26/22 at 1500, STAT
In dication for insulin: Hyperglyce she[place] Lactobacill 2022- No Take by Un fabiana us 08-26 mouth. ity of acidophilus 18:46: 00:00 [place] (PROBIOTIC 18 :00 Medical ORAL) Branch MULTIVITAMI 2022- No Take by Un fabiana N ORAL 2-16 02-16 mouth. ity of 18:46: 00:00 [place] 18 :00 Medical Branch multivitami 2022-0 2022- No Take by Tony andre with 2-16 02-16 mouth. ity of minerals 18:46: 00:00 [place] (HAIR,SKIN 18 :00 Medical AND NAILS Branch [...] 00 DAYS EACH MONTH ORALLY TAKE 1 2021-1 No TABLET BY 2-14 [...] 2-13 ity of 1000 mL + 02:00: [place] KCL [address] [facility] Branch D5W 0.45% 2021-07 Yes 1000mL [...] mg [facility] Branch 06/21/22 at 1900, MALAI[place] NaCl [...] 00:00: insulin 100 00 unit/mL (3 mL) [facility] alogliptin 2-0 No 1mg 25 [...] mL 00:00: mL) (18 mg/3 00 mL) [facility] Tresiba 2-0 No (3 mL) FlexTouch 5-14 U-100 00:00: insulin 100 00 unit/mL (3 mL) [facility] alogliptin 2022-0 No 1mg 25 [...] Dose 2-0 No Unknown 4-13 00:00: 00 NaCl 0.9% No 1000mL at 999 Uni vers (NS) IV 10-17 mL/hr, ity of infusion 02:00: 02:08 Intravenou [place] 1,000 mL 00 :00 s, ONCE, 1 Medic al dose, On Branch Tue10/16/21 at 2100, [place] insulin 2021- No .1U/kg 10.3 Units U nivers regular 10-17 (rounded ity of human 02:00: 01:[address] (HUMULIN R) 00 :00 Units = [...]
[employer] member approving Restricted medication : BEATRIZ EDUARDO oxybutynin 2021-0 Yes [id number] 5mg Take 1 Univers chloride 5 4-08 tablet by ity of mg tablet 00:00: mouth 3 [place] 00 (three) Medical times Branch daily as needed for Bladder spasms. ondansetron 2021-0 Yes [id number] 4mg Take 1 Univers 4 mg 4-08 tablet by ity of disintegrat 00:00: mouth [place] ing tablet 00 every 8 Medica l (eight) Branch hours as needed for Nausea and Vomiting (N/V). oxybutynin 2-0 Yes [id number] 5mg Take 1 Univers chloride 5 4-08 tablet by ity of mg tablet 00:00: mouth 3 [place] 00 (three) Medical times Branch daily as needed for Bladder spasms. ondansetron 2021-0 Yes [id number] 4mg Take 1 Univers 4 mg 4-08 tablet by ity of disintegrat 00:00: mouth [place] ing tablet 00 every 8 Medica l (eight) Branch hours as needed for Nausea and Vomiting (N/V). oxybutynin 2-0 Yes [id number] 5mg Take 1 Univers chloride 5 4-08 tablet by ity of mg tablet 00:00: mouth 3 [place] 00 (three) Medical times Branch daily as needed for Bladder spasms. ondansetron 2021-0 Yes [id number] 4mg Take 1 Univers 4 mg 4-08 tablet by ity of disintegrat 00:00: mouth [place] ing tablet 00 every 8 Medica l (eight) Branch hours as needed for Nausea and Vomiting (N/V). oxybutynin 2021-0 Yes [id number] 5mg Take 1 Univers chloride 5 4-08 tablet by ity of mg tablet 00:00: mouth 3 [place] 00 (three) Medical times Branch daily as needed for Bladder spasms. ondansetron 2021-0 Yes [id number] 4mg Take 1 Univers 4 mg 4-08 tablet by ity of disintegrat 00:00: mouth [place] ing tablet 00 every 8 Medica l (eight) Branch hours as needed for Nausea and Vomiting (N/V). oxybutynin 2021-0 Yes [id number] 5mg Take 1 Univers chloride 5 4-08 tablet by ity of mg tablet 00:00: mouth 3 [place] 00 (three) Medical times Branch daily as needed for Bladder spasms. ondansetron 2021-0 Yes [id number] 4mg Take 1 Univers 4 mg 4-08 tablet by ity of disintegrat 00:00: mouth [place] ing tablet 00 every 8 Medica l (eight) Branch hours as needed for Nausea and Vomiting (N/V). oxybutynin 2021-0 2022- No [id number] 5mg Take 1 Univers chloride 5 4-08 07-03 tablet by ity of mg tablet 00:00: 00:00 mouth 3 [place] 00 :00 (three) Medical times Branch daily as needed for Bladder spasms. ondansetron 2021-0 2022- No [id number] 4mg Take 1 Univers 4 mg 4-08 [...] No 4mg 4 mg, Slow Univers (ZOFRAN 09-22 03-15 IV [place], ity of (PF)) 15:15: [...] 2022-0 No Unknown 1-19 00:00: 00 morpHINE 2020-1 [...] Indication s: acute pain ondansetron 2020-07 Yes [id number] 4mg Take 1 Univers 4 mg 2-09 [...] Indication s: acute pain ondansetron 2020-07 Yes [id number] 4mg Take 1 Univers 4 mg 2-09 [...] Indication s: acute pain ondansetron 2020-07 Yes [id number] 4mg Take 1 Univers 4 mg 2-09 [...] Indication s: acute pain ondansetron 2020-07- No [id number] 4mg Take 1 Univers 4 mg 08-19 [...] 150 mg 2-08 tablet 00:00: 00 hydrochloro No 1mg thiazide 25 2-08 mg tablet [...] 05/30/21 at 1800, Routine iopamidol 2020-07- No [id number] 100mL 100 mL, Univers (ISOVUE 07-30 9109 Intravenou ity o f 370-500 mL) 23:48: 23:48 s, ONCE, 1 [place] injection 00 :00 dose, On Medica l 100 mL Sat Branch 05/30/21 at 1800, Routine ibuprofen 2020-07 Yes [id number] 600mg Take 1 Univers 600 mg 1-20 [id number] tablet by ity of tablet 00:00: mouth [place] 00 every 6 Medical (six) Branch hours as needed for Pain (scale 4-6). traMADoL 50 2020-07 Yes [id number] 50mg Take 1 Univ ers mg tablet 1-20 tablet by ity o f 00:00: mouth [place] 00 every 6 Medical (six) Branch hours as needed for Pain (scale 7-10). Indication s: acute pain ibuprofen 2020-07 Yes [id number] 600mg Take 1 Univers 600 mg -20 [id number] tablet by ity of tablet 00:00: mouth [place] 00 every 6 Medical (six) Branch hours as needed for Pain (scale 4-6). traMADoL 50 2020-07 Yes [id number] 50mg Take 1 Univ ers mg tablet 1-20 tablet by ity o f 00:00: mouth [place] 00 every 6 Medical (six) Branch hours as needed for Pain (scale 7-10). Indication s: acute pain ibuprofen 2020-07 Yes [id number] 600mg Take 1 Univers 600 mg 1-20 [id number] tablet by ity of tablet 00:00: mouth [place] 00 every 6 Medical (six) Branch hours as needed for Pain (scale 4-6). traMADoL 50 2020-07 Yes [id number] 50mg Take 1 Univ ers mg tablet 1-20 tablet by ity o f 00:00: mouth [place] 00 every 6 Medical (six) Branch hours as needed for Pain (scale 7-10). Indication s: acute pain ibuprofen 2020-07 Yes [id number] 600mg Take 1 Univers 600 mg 1-20 [id number] tablet by ity of tablet 00:00: mouth [place] 00 every 6 Medical (six) Branch hours as needed for Pain (scale 4-6). traMADoL 50 2020-07 Yes [id number] 50mg Take 1 Univ ers mg tablet 1-20 tablet by ity o f 00:00: mouth [place] 00 every 6 Medical (six) Branch hours as needed for Pain (scale 7-10). Indication s: acute pain ibuprofen 2020-07 Yes [id number] 600mg Take 1 Univers 600 mg 1-20 [id number] tablet by ity of tablet 00:00: mouth [place] 00 every 6 Medical (six) Branch hours as needed for Pain (scale 4-6). ibuprofen 2020-07 Yes [id number] 600mg Take 1 Univers 600 mg 1-20 [id number] tablet by ity of tablet 00:00: mouth [place] 00 every 6 Medical (six) Branch hours as needed for Pain (scale 4-6). ibuprofen 2020-07- No [id number] 600mg Take 1 Univers 600 mg 1-20 02-16 [id number] tablet by ity o f tablet 00:00: 00:00 mouth [place] 00 :00 every 6 Medical (six) Branch hours as needed for Pain (scale 4-6). traMADoL 50 2020-07- No [id number] 50mg Take 1 Uni vers mg tablet 1-20 04-08 tablet by emily of 00:00: 00:00 mouth [place] 00 :00 every 6 Medical (six) Branch hours as needed for Pain (scale 7-10). Indication s: acute pain [facility] 2020-07 No 1mg mg tablet 07-11 00:00: 00 [facility] 2020-07 No 1mg mg tablet 07-11 00:00: 00 [facility] 2020-07 No 1mg mg tablet 07-11 00:00: 00 [facility] 2020-07 No 1mg mg tablet 07-11 00:00: 00 [facility] 2020-07 No 1mg mg tablet 07-11 00:00: 00 [facility] 2020-07 No 1mg mg tablet 07-11 00:00: 00 [facility] 2020-07 No 1mg mg tablet 07-11 00:00: 00 [facility] 2020-07 No 1mg mg tablet 07-11 00:00: 00 [facility] 2020-07 No 1mg mg tablet 07-11 00:00: [...] 50 mg 0-07 tablet 00:00: 00 Dose 2020- No Unknown 0-07 00:00: 00 Dose 2021-1 No Unknown 0-07 00:00: 00 Tresiba 1-0 [...] glimepiride 2021-0 No 1mg 4 mg tablet 9-28 00:00: 00 Janumet XR 1-0 No 1mg [...] 9-13 00:00: 00 VASCEPA 1 2020-0 Yes [id number] TAKE 3 U nivers gram 9-10 CAPSULES ity of capsule 00:00: BY [facility] EVERY DAY Medical Branch VASCEPA 1 2020-0 Yes [id number] TAKE 3 U nivers gram 9-10 CAPSULES ity of capsule 00:00: BY MOUTH [place] EVERY DAY Medical Branch VASCEPA 1 2020-0 Yes [id number] TAKE 3 U nivers gram 9-10 CAPSULES ity of capsule 00:00: BY [facility] EVERY DAY Medical Branch VASCEPA 1 2020-0 Yes [id number] TAKE 3 U nivers gram 9-10 CAPSULES ity of capsule 00:00: BY [facility] EVERY DAY Medical Branch VASCEPA 1 2020-0 Yes [id number] TAKE 3 U nivers gram 9-10 CAPSULES ity of capsule 00:00: BY MOUTH [place] EVERY DAY Medical Branch VASCEPA 1 2020-0 Yes [id number] TAKE 3 U nivers gram 9-10 CAPSULES ity of capsule 00:00: BY MOUTH [place] EVERY DAY Medical Branch VASCEPA 1 2020-0 Yes [id number] TAKE 3 U nivers gram 9-10 CAPSULES ity of capsule 00:00: BY MOUTH [place] EVERY DAY Medical Branch VASCEPA 1 2020-0 Yes [id number] TAKE 3 U nivers gram 9-10 CAPSULES ity of capsule 00:00: BY MOUTH [place] EVERY DAY Medical Branch VASCEPA 1 2020-0 Yes [id number] TAKE 3 U nivers gram 9-10 CAPSULES ity of capsule 00:00: BY MOUTH [place] EVERY DAY Medical Branch VASCEPA 1 2020-0 Yes [id number] TAKE 3 U nivers gram 9-10 CAPSULES ity of capsule 00:00: BY MOUTH [place] EVERY DAY Medical Branch azithromyci 1-0 No [...] mL oral 00 syrup VASCEPA 1 2021-0 2023- No [id number] TAKE 3 Univers gram 9-10 07-03 CAPSULES [...] one 2.5 % 6-20 topical 00:00: cream amitriptyli 1-0 No 1mg ne 10 mg [...] 00 nded release icosapent 2020-0 2020- No [id number] 3g Take 3 Univers ethyL 12-10 09-10 [...] N ORAL 5-27 mouth. ity of 22:32: [place] [address] Medical Branch multivitami Yes Take by Uni vers n with 5-27 mouth. ity of minerals 22:32: [place] (HAIR,SKIN 10 Medical AND NAILS Branch ORAL) Lactobacill Yes Take by Uni vers us 5-27 mouth. ity of acidophilus 17:32: [place] (PROBIOTIC 10 Medical ORAL) [place] MULTIVITAMI Yes Take by Uni vers N ORAL 5-27 mouth. ity of 17:32: [place] [address] Medical Branch multivitami Yes Take by Uni vers n with 5-27 mouth. ity of minerals 17:32: [place] (HAIR,SKIN 10 Medical AND NAILS Branch ORAL) Lactobacill Yes Take by Uni vers us 5-27 mouth. ity of acidophilus 17:32: [place] (PROBIOTIC 10 Medical ORAL) [place] MULTIVITAMI Yes Take by Uni vers N ORAL 5-27 mouth. ity of 17:32: [place] [address] Medical Branch multivitami Yes Take by Uni vers n with 5-27 mouth. ity of minerals 17:32: [place] (HAIR,SKIN 10 Medical AND NAILS Branch ORAL) Lactobacill Yes Take by Uni vers us 5-27 mouth. ity of acidophilus 17:32: [place] (PROBIOTIC 10 Medical ORAL) [place] MULTIVITAMI Yes Take by Uni vers N ORAL 5-27 mouth. ity of 17:32: [place] [address] Medical Branch multivitami Yes Take by Uni vers n with 5-27 mouth. ity of minerals 17:32: [place] (HAIR,SKIN 10 Medical AND NAILS Branch ORAL) Lactobacill 2020-0 Yes Take by Uni vers us 5-27 mouth. ity of acidophilus 17:32: [place] (PROBIOTIC 10 Medical ORAL) Branch MULTIVITAMI 0 Yes Take by Uni vers N ORAL 5-27 mouth. ity of 17:32: [place] Medical Branch multivitami 0 Yes Take by Uni vers n with 5-27 mouth. ity of minerals 17:32: [place] (HAIR,SKIN 10 Medical AND NAILS Branch ORAL) Lactobacill 0 Yes Take by Uni vers us 5-27 mouth. ity of acidophilus 17:32: [place] (PROBIOTIC 10 Medical ORAL) Branch MULTIVITAMI 0 Yes Take by Uni vers N ORAL 5-27 mouth. ity of 17:32: [place] [address] Medical Branch multivitami 0 Yes Take by Uni vers n with 5-27 mouth. ity of minerals 17:32: [place] (HAIR,SKIN 10 Medical AND NAILS Branch ORAL) Lactobacill 0 Yes Take by Uni vers us 5-27 mouth. ity of acidophilus 17:32: [place] (PROBIOTIC 10 Medical ORAL) [place] MULTIVITAMI Yes Take by Uni vers N ORAL 5-27 mouth. ity of 17:32: [place] [address] Medical Branch multivitami 0 Yes Take by Uni vers n with 5-27 mouth. ity of minerals 17:32: [place] (HAIR,SKIN 10 Medical AND NAILS Branch ORAL) [...] 00 daily. Medical Branch metFORMIN 2020-0 Yes [id number] 1000mg Take 1 Univers 1,000 mg 4-30 tablet by ity of tablet 00:00: mouth 2 00 (two) Medical times Branch daily with meals. blood sugar 2020-0 Yes [id number] Use daily Univers diagnostic 4-30 Dx E11.65 ity of (ONETOUCH 00:00: [place] VERIO TEST 00 Medical STRIPS) Branch strip lancets 2020-0 Yes [id number] Use daily Univers (ONE TOUCH 4-30 Dx E11.65 ity of DELICA) 33 00:00: [facility] 00 Medical Branch gabapentin 2020-0 Yes [id number] 600mg Take 1 Univers 600 mg 4-30 tablet by ity of tablet 00:00: mouth 2 [place] (two) Medical times Branch daily. lisinopriL 0 Yes [id number] 2.5mg Take 1 Univers 2.5 mg 4-30 tablet by ity of tablet 00:00: mouth [place] 00 daily. Medical Branch insulin 2020-0 Yes [id number] 35U inject 35 Univers degludec 4-30 Units ity of (TRESIBA 00:00: [place] FLEXTOUCH 00 skin 2 Medical U-100) 100 (two) Branch unit/mL (3 times mL) InPn daily. fenofibrate 2020-0 Yes 134mg Take 1 Uni vers micronized 4-30 capsule by ity of 134 mg 00:00: mouth [place] capsule 00 daily. Medical Branch metFORMIN 2020-0 Yes [id number] 1000mg Take 1 Univers 1,000 mg 4-30 tablet by ity of tablet 00:00: mouth 2 [place] (two) Medical times Branch daily with meals. blood sugar 2020-0 Yes [id number] Use daily Univers diagnostic 4-30 Dx E11.65 ity of (ONETOUCH 00:00: [place] VERIO TEST 00 Medical STRIPS) Branch strip lancets 2020-0 Yes [id number] Use daily Univers (ONE TOUCH 4-30 Dx E11.65 ity of DELICA) 33 00:00: [place] [facility] [address] 00 Medical Branch lisinopriL 2021-0 Yes [id number] 2.5mg Take 1 Univers 2.5 mg 4-30 tablet by ity of tablet 00:00: mouth [place] 00 daily. Medical Branch atorvastati Yes 40mg Take 1 Univ ers n 40 mg 4-30 tablet by ity of tablet 00:00: mouth at [place] 00 bedtime. Medical Branch fenofibrate Yes 134mg Take 1 Uni vers micronized 4-30 capsule by ity of 134 mg 00:00: mouth [place] capsule 00 daily. Medical Branch metFORMIN Yes [id number] 1000mg Take 1 Univers 1,000 mg 4-30 tablet by ity of tablet 00:00: mouth 2 [place] 00 (two) Medical times Branch daily with meals. blood sugar Yes [id number] Use daily Univers diagnostic 4-30 Dx E11.65 ity of (ONETOUCH 00:00: [place] VERIO TEST 00 Medical STRIPS) Branch strip lancets Yes [id number] Use daily Univers (ONE TOUCH 4-30 Dx E11.65 ity of DELICA) 33 00:00: [place] gauge [facility] 00 Medical Branch gabapentin Yes [id number] 600mg Take 1 Univers 600 mg 4-30 tablet by ity of tablet 00:00: mouth 2 [place] 00 (two) Medical times Branch daily. lisinopriL Yes [id number] 2.5mg Take 1 Univers 2.5 mg 4-30 tablet by ity of tablet 00:00: mouth [place] 00 daily. Medical Branch insulin Yes [id number] 35U inject 35 Univers degludec 4-30 Units ity of (TRESIBA 00:00: [place] FLEXTOUCH 00 skin 2 Medical U-100) 100 (two) Branch unit/mL (3 times mL) InPn daily. atorvastati Yes 40mg Take 1 Univ ers n 40 mg 4-30 tablet by ity of tablet 00:00: mouth at [place] 00 bedtime. Medical Branch fenofibrate Yes 134mg Take 1 Uni vers micronized 4-30 capsule by ity of 134 mg 00:00: mouth [place] capsule 00 daily. Medical Branch metFORMIN Yes [id number] 1000mg Take 1 [facility] 1,000 mg 4-30 tablet by ity of tablet 00:00: mouth 2 (two) Medical times Branch daily with meals. blood sugar 0 Yes [id number] Use daily [facility] diagnostic 4-30 Dx E11.65 ity of (ONETOUCH 00:00: [place] VERIO TEST 00 Medical STRIPS) Branch strip lancets 2020-0 Yes [id number] Use daily [facility] (ONE TOUCH 4-30 Dx E11.65 ity of DELICA) 33 00:00: [facility] 00 Medical Branch gabapentin Yes [id number] 600mg Take 1 [facility] 600 mg 4-30 tablet by ity of tablet 00:00: mouth 2 [place] (two) Medical times Branch daily. lisinopriL Yes [id number] 2.5mg Take 1 [facility] 2.5 mg 4-30 tablet by ity of tablet 00:00: mouth 00 daily. Medical Branch insulin Yes [id number] 35U inject 35 [facility] degludec 4-30 Units ity of ([place]IB[place]LE[place] skin 2 Medical U-100) 100 (two) Branch unit/mL (3 times mL) InPn daily. atorvastati Yes 40mg Take 1 Univ ers n 40 mg 4-30 tablet by ity of tablet 00:00: mouth at [place] 00 bedtime. Medical Branch fenofibrate 0 Yes 134mg Take 1 Uni vers micronized 4-30 capsule by ity of 134 mg 00:00: mouth [place] capsule 00 daily. Medical Branch metFORMIN Yes [id number] 1000mg Take 1 [facility] 1,000 mg 4-30 tablet by ity of tablet 00:00: mouth 2 [place] (two) Medical times Branch daily with meals. blood sugar Yes [id number] Use daily [facility] diagnostic 4-30 Dx E11.65 ity of (ONETOUCH 00:00: [place] VERIO TEST 00 Medical STRIPS) Branch strip lancets 2020-0 Yes [id number] Use daily [facility] (ONE TOUCH 4-30 Dx E11.65 ity of DELICA) 33 00:00: [facility] 00 Medical Branch gabapentin 2020-0 Yes [id number] 600mg Take 1 [facility] 600 mg 4-30 tablet by ity of tablet 00:00: mouth 2 [place] 00 (two) Medical times Branch daily. lisinopriL Yes [id number] 2.5mg Take 1 [facility] 2.5 mg 4-30 tablet by ity of tablet 00:00: mouth [place] 00 daily. Medical Branch insulin Yes [id number] 35U inject 35 [facility] degludec 4-30 Units ity of (TRESIBA 00:00[place]LE[place] skin 2 Medical U-100) 100 (two) Branch unit/mL (3 times mL) InPn daily. atorvastati Yes 40mg Take 1 Univ ers n 40 mg 4-30 tablet by ity of tablet 00:00: mouth at [place] 00 bedtime. Medical Branch fenofibrate Yes 134mg Take 1 Uni vers micronized 4-30 capsule by ity of 134 mg 00:00: mouth [place] [facility] 00 daily. Medical Branch metFORMIN Yes [id number] 1000mg Take 1 [facility] 1,000 mg 4-30 tablet by ity of tablet 00:00: mouth 2 [place] 00 (two) Medical times Branch daily with meals. blood sugar Yes [id number] Use daily [facility] diagnostic 4-30 Dx E11.65 ity of (ONETOUCH 00:00: [place] VERIO TEST 00 Medical STRIPS) Branch strip lancets Yes [id number] Use daily [facility] (ONE TOUCH 4-30 Dx E11.65 ity of DELICA) 33 00:00: [place] gauge Misc 00 Medical Branch gabapentin Yes [id number] 600mg Take 1 [facility] 600 mg 4-30 tablet by ity of tablet 00:00: mouth 2 [place] 00 (two) Medical times Branch daily. lisinopriL Yes [id number] 2.5mg Take 1 [facility] 2.5 mg 4-30 tablet by ity of tablet 00:00: mouth [place] 00 daily. Medical Branch insulin Yes [id number] 35U inject 35 [facility] degludec 4-30 Units [...] capsule 00 daily. Medical Branch metFORMIN Yes [id number] 1000mg Take 1 [facility] 1,000 mg 4-30 tablet by ity of tablet 00:00: mouth 2 [place] (two) Medical times Branch daily with meals. blood sugar Yes [id number] Use daily [facility] diagnostic 4-30 Dx E11.65 ity of (ONETOUCH 00:00: [place] VERIO TEST 00 Medical STRIPS) Branch strip lancets Yes [id number] Use daily [facility] (ONE TOUCH 4-30 Dx E11.65 ity of DELICA) 33 00:00: [place] gauge Misc 00 Medical Branch gabapentin Yes [id number] 600mg Take 1 [facility] 600 mg 4-30 tablet by ity of tablet 00:00: mouth 2 (two) Medical times Branch daily. lisinopriL Yes [id number] 2.5mg Take 1 [facility] 2.5 mg 4-30 tablet by ity of tablet 00:00: mouth [place] 00 daily. Medical Branch insulin Yes [id number] 35U inject 35 [facility] degludec 4-30 Units [...] capsule 00 daily. Medical Branch metFORMIN Yes [id number] 1000mg Take 1 [facility] 1,000 mg 4-30 tablet by ity of tablet 00:00: mouth 2 [place] (two) Medical times Branch daily with meals. blood sugar Yes [id number] Use daily [facility] diagnostic 4-30 Dx E11.65 ity of (ONETOUCH 00:00: [place] VERIO TEST 00 Medical STRIPS) Branch strip lancets 0 Yes [id number] Use daily [facility] (ONE TOUCH 4-30 Dx E11.65 ity of DELICA) 33 00:00: [facility] Medical Branch gabapentin 2020-0 Yes [id number] 600mg Take 1 [facility] 600 mg 4-30 tablet by ity of tablet 00:00: mouth 2 (two) Medical times Branch daily. lisinopriL Yes [id number] 2.5mg Take 1 [facility] 2.5 mg 4-30 tablet by ity of tablet 00:00: mouth 00 daily. Medical Branch insulin Yes [id number] 35U inject 35 [facility] degludec 4-30 Units ity of (TRESIBA 00:00: [place] FLEXT[place] skin 2 Medical U-100) 100 (two) Branch unit/mL (3 times mL) InPn daily. atorvastati Yes 40mg Take 1 Univ ers n 40 mg 4-30 tablet by ity of tablet 00:00: mouth at [place] bedtime. Medical Branch fenofibrate Yes 134mg Take 1 Uni vers micronized 4-30 capsule by ity of 134 mg 00:00: mouth [place] capsule 00 daily. Medical Branch metFORMIN Yes [id number] 1000mg Take 1 [facility] 1,000 mg 4-30 tablet by ity of tablet 00:00: mouth 2 (two) Medical times Branch daily with meals. blood sugar Yes [id number] Use daily [facility] diagnostic 4-30 Dx E11.65 ity of (ONETOUCH 00:00: [place] VERIO TEST 00 Medical STRIPS) Branch strip lancets Yes [id number] Use daily [facility] (ONE TOUCH 4-30 Dx E11.65 ity of DELICA) 33 00:00: [facility] 00 Medical Branch gabapentin 0 Yes [id number] 600mg Take 1 [facility] 600 mg 4-30 tablet by ity of tablet 00:00: mouth 2 (two) Medical times Branch daily. lisinopriL Yes [id number] 2.5mg Take 1 [facility] 2.5 mg 4-30 tablet by ity of tablet 00:00: mouth [place] 00 daily. Medical Branch fenofibrate 2020-0 Yes 134mg Take 1 Uni vers micronized 4-30 capsule by ity of 134 mg 00:00: mouth [place] capsule 00 daily. Medical Branch metFORMIN 2020-0 Yes [id number] 1000mg Take 1 [facility] 1,000 mg 4-30 tablet by ity of tablet 00:00: mouth 2 (two) Medical times Branch daily with meals. blood sugar 2020-0 Yes [id number] Use daily [facility] diagnostic 4-30 Dx E11.65 ity of (ONETOUCH 00:00: [place] VERIO TEST 00 Medical STRIPS) Branch strip lancets 2020-0 Yes [id number] Use daily [facility] (ONE TOUCH 4-30 Dx E11.65 ity of DELICA) 33 00:00: [facility] 00 Medical Branch gabapentin 2020-0 Yes [id number] 600mg Take 1 [facility] 600 mg 4-30 tablet by ity of tablet 00:00: mouth 2 (two) Medical times Branch daily. lisinopriL 0 Yes [id number] 2.5mg Take 1 [facility] 2.5 mg 4-30 tablet by ity of tablet 00:00: mouth [place] 00 daily. Medical Branch fenofibrate 0 Yes 134mg Take 1 Uni vers micronized 4-30 capsule by ity of 134 mg 00:00: mouth [place] capsule 00 daily. Medical Branch metFORMIN 0 Yes [id number] 1000mg Take 1 [facility] 1,000 mg 4-30 tablet by ity of tablet 00:00: mouth 2 (two) Medical times Branch daily with meals. blood sugar 0 Yes [id number] Use daily [facility] diagnostic 4-30 Dx E11.65 ity of (ONETOUCH 00:00: [place] VERIO TEST 00 Medical STRIPS) Branch strip lancets 2020-0 Yes [id number] Use daily [facility] (ONE TOUCH 4-30 Dx E11.65 ity of DELICA) 33 00:00: [facility] 00 Medical Branch gabapentin 2020-0 Yes [id number] 600mg Take 1 [facility] 600 mg 4-30 tablet by ity of tablet 00:00: mouth 2 [place] (two) Medical times Branch daily. lisinopriL 2020-0 Yes [id number] 2.5mg Take 1 [facility] 2.5 mg 4-30 tablet by ity of tablet 00:00: mouth [place] 00 daily. Medical Branch gabapentin 2022- No [id number] 600mg Take 1 [facility] 600 mg 11-07-03 tablet by ity of tablet 00:00: 00:00 mouth 2 [place] 00 :00 (two) Medical times Branch daily. insulin 2022- No [id number] 35U inject 35 [facility] degludec 30 02-20 [...] mg tablet 4-10 00:00: 00 ProAir HFA 1-0 No 12mcg/a 90 3-19 ctuatio mcg/actuati 00:00: n on aerosol 00 inhaler ProAir HFA 1-0 No 12mcg/a 90 3-19 ctuatio mcg/actuati 00:00: [...] 600 mg 2-23 tablet 00:00: 00 Victoza 2019-1 No (18 3-Christofer 0.6 2-23 mg/3 mg/0.1 mL 00:00: mL) (18 mg/3 00 mL) subcutaneou s pen injector Tresiba 2019-1 No 30(3 FlexTouch 2-23 mL) U-100 00:00: insulin 100 00 unit/mL (3 mL) subcutaneou s pen hydrochloro 2019-1 No 1mg thiazide 25 2-23 mg tablet 00:00: 00 glimepiride 2020-1 No 1mg 2 mg tablet 2-23 00:00: [...] mL 00:00: mL) (18 mg/3 00 [facility] Tresiba 2020-0 No 30(3 FlexTouch 6-10 mL) U-100 00:00: insulin 100 00 unit/mL (3 mL) subcutaneou s pen Tresiba 2020-0 No 30(3 FlexTouch 6-10 mL) U-100 00:00: insulin 100 00 unit/mL (3 mL) [facility] l[facility]opril 2020-0 No 1mg 5 [...] by Met hodi SUNNY/FA/GUAR 5-14 mouth. [facility], [place] 11:53: Hospita (ONE-A-DAY 29 l WOMEN'S ACTIVE ORAL) MV,CA,MIN/I 2020-0 Yes Take by Met hodi SUNNY/FA/GUAR 5-14 mouth. [facility] [place] 11:53: Hospita (ONE-A-DAY 29 l WOMEN'S ACTIVE ORAL) MV,CA,MIN/I 2020-0 Yes Take by Met hodi SUNNY/FA/GUAR 5-14 mouth. [facility], [place] 11:53: Hospita (ONE-A-DAY 29 l WOMEN'S ACTIVE ORAL) MV,CA,MIN/I 2020-0 Yes Take by Met hodi SUNNY/FA/GUAR 5-14 mouth. [facility], [place] 11:53: Hospita (ONE-A-DAY 29 l WOMEN'S ACTIVE ORAL) MV,CA,MIN/I 2020-0 Yes Take by Met hodi SUNNY/FA/GUAR 5-14 mouth. [facility], [place] 11:53: Hospita (ONE-A-DAY 29 l WOMEN'S ACTIVE ORAL) MV,CA,MIN/I 2020-0 Yes Take by Met hodi SUNNY/FA/GUAR 5-14 mouth. [facility] [place] 11:53: Hospita (ONE-A-DAY 29 l WOMEN'S ACTIVE ORAL) MV,CA,MIN/I 2020-0 Yes Take by Met hodi SUNNY/FA/GUAR 5-14 mouth. [facility] [place] 11:53: Hospita (ONE-A-DAY 29 l WOMEN'S ACTIVE ORAL) MV,CA,MIN/I 2020-0 Yes Take by Met hodi SUNNY/FA/GUAR 5-14 mouth. [facility] [place] 11:53: Hospita (ONE-A-DAY 29 l WOMEN'S ACTIVE ORAL) MV,CA,MIN/I 2020-0 Yes Take by Met hodi SUNNY/FA/GUAR 5-14 mouth. [facility] [place] 11:53: Hospita (ONE-A-DAY 29 l WOMEN'S ACTIVE ORAL) MV,CA,MIN/I 2020-0 Yes Take by Met hodi SUNNY/FA/GUAR 5-14 mouth. [facility] [place] 11:53: Hospita (ONE-A-DAY 29 l WOMEN'S ACTIVE ORAL) MV,CA,MIN/I 2020-0 Yes Take by Met hodi SUNNY/FA/GUAR 5-14 mouth. [facility] [place] 11:53: Hospita (ONE-A-DAY 29 l WOMEN'S ACTIVE ORAL) MV,CA,MIN/I 2020-0 Yes Take by Met hodi SUNNY/FA/GUAR 5-14 mouth. [facility] [place] 11:53: Hospita (ONE-A-DAY 29 l WOMEN'S ACTIVE ORAL) MV,CA,MIN/I 2020-0 Yes Take by Met hodi SUNNY/FA/GUAR 5-14 mouth. [facility] [place] 11:53: Hospita (ONE-A-DAY 29 l WOMEN'S ACTIVE ORAL) MV,CA,MIN/I 2020-0 Yes Take by Met hodi SUNNY/FA/GUAR 5-14 mouth. [facility] [place] 11:53: Hospita (ONE-A-DAY 29 l WOMEN'S ACTIVE ORAL) MV,CA,MIN/I 2020-0 Yes Take by Met hodi SUNNY/FA/GUAR 5-14 mouth. [facility] [place] 11:53: Hospita (ONE-A-DAY 29 l WOMEN'S ACTIVE ORAL) MV,CA,MIN/I 2020-0 Yes Take by Met hodi SUNNY/FA/GUAR 5-14 mouth. [facility] [place] 11:53: Hospita (ONE-A-DAY 29 l WOMEN'S ACTIVE ORAL) MV,CA,MIN/I 2020-0 Yes Take by Met hodi SUNNY/FA/GUAR 5-14 mouth. [facility] [place] 11:53: Hospita (ONE-A-DAY 29 l WOMEN'S ACTIVE ORAL) MV,CA,MIN/I 2020-0 Yes Take by Met hodi SUNNY/FA/GUAR 5-14 mouth. [facility] [place] 11:53: Hospita (ONE-A-DAY 29 l WOMEN'S ACTIVE ORAL) MV,CA,MIN/I 2020-0 Yes Take by Met hodi SUNNY/FA/GUAR 5-14 mouth. [facility] [place] 11:53: Hospita (ONE-A-DAY 29 l WOMEN'S ACTIVE [...] tablet 5-12 00:00: 00 nystatin-tr 2020-0 Yes [id number] Q.25D Apply Methodi iamcinolone 4-[address] (MYCOLOG 00:00: 4 ([facility]) Hospi ta II) 00 times a l 100,000-0.1 day as unit/g-% needed cream (vaginal itching or infection) . To outer vagina nystatin-tr 2020-0 Yes [id number] Q.25D Apply Methodi iamcinolone 4-[address] (MYCOLOG 00:00: 4 ([facility]) Hospi ta II) 00 times a l 100,000-0.1 day as unit/g-% needed cream (vaginal itching or infection) . To outer vagina nystatin-tr 2020-0 Yes [id number] Q.25D Apply Methodi iamcinolone 4-[address] (MYCOLOG 00:00: 4 ([facility]) Hospi ta II) 00 times a l 100,000-0.1 day as unit/g-% needed cream (vaginal itching or infection) . To outer vagina nystatin-tr 2020-0 Yes [id number] Q.25D Apply Methodi iamcinolone 4-[address] (MYCOLOG 00:00: 4 [facility]000[facility]0.1 day as unit/g-% needed cream (vaginal itching or infection) . To outer vagina nystatin-tr 2020-0 Yes [id number] Q.25D Apply Methodi iamcinolone 4-[address] (MYCOLOG 00:00: 4 (four) Hospi ta II) 00 times a l 100,000-0.1 day as unit/g-% needed cream (vaginal itching or infection) . To outer vagina nystatin-tr 2020-0 Yes [id number] Q.25D Apply Methodi iamcinolone 4-[address] (MYCOLOG 00:00: 4 (four) Hospi ta II) 00 times a l 100,000-0.1 day as unit/g-% needed cream (vaginal itching or infection) . To outer vagina nystatin-tr 2020-0 Yes [id number] Q.25D Apply Methodi iamcinolone 4-[address] (MYCOLOG 00:00: 4 (four) Hospi ta II) 00 times a l 100,000-0.1 day as unit/g-% needed cream (vaginal itching or infection) . To outer vagina nystatin-tr 2020-0 Yes [id number] Q.25D Apply Methodi iamcinolone 4-[address] (MYCOLOG 00:00: 4 (four) Hospi ta II) 00 times a l 100,000-0.1 day as unit/g-% needed cream (vaginal itching or infection) . To outer vagina nystatin-tr 2020-0 Yes [id number] Q.25D Apply Methodi iamcinolone 4-[address] (MYCOLOG 00:00: 4 (four) Hospi ta II) 00 times a l 100,000-0.1 day as unit/g-% needed cream (vaginal itching or infection) . To outer vagina nystatin-tr 2020-0 Yes [id number] Q.25D Apply Methodi iamcinolone 4-[address] (MYCOLOG 00:00: 4 (four) Hospi ta II) 00 times a l 100,000-0.1 day as unit/g-% needed cream (vaginal itching or infection) . To outer vagina nystatin-tr 2020-0 Yes [id number] Q.25D Apply Methodi iamcinolone 4-[address] (MYCOLOG 00:00: 4 (four) Hospi ta II) 00 times a l 100,000-0.1 day as unit/g-% needed cream (vaginal itching or infection) . To outer vagina nystatin-tr 2020-0 Yes [id number] Q.25D Apply Methodi iamcinolone 4-[address] (MYCOLOG 00:00: 4 (four) Hospi ta II) 00 times a l 100,000-0.1 day as unit/g-% needed cream (vaginal itching or infection) . To outer vagina nystatin-tr 2020-0 Yes [id number] Q.25D Apply Methodi iamcinolone 4-[address] (MYCOLOG 00:00: 4 (four) Hospi ta II) 00 times a l 100,000-0.1 day as unit/g-% needed cream (vaginal itching or infection) . To outer vagina nystatin-tr 2020-0 Yes [id number] Q.25D Apply Methodi iamcinolone 4-[address] (MYCOLOG 00:00: 4 (four) Hospi ta II) 00 times a l 100,000-0.1 day as unit/g-% needed cream (vaginal itching or infection) . To outer vagina nystatin-tr 2020-0 Yes [id number] Q.25D Apply Methodi iamcinolone 4-[address] (MYCOLOG 00:00: 4 (four) Hospi ta II) 00 times a l 100,000-0.1 day as unit/g-% needed cream (vaginal itching or infection) . To outer vagina nystatin-tr 2020-0 Yes [id number] Q.25D Apply Methodi iamcinolone 4-[address] (MYCOLOG 00:00: 4 (four) Hospi ta II) 00 times a l 100,000-0.1 day as unit/g-% needed cream (vaginal itching or infection) . To outer vagina nystatin-tr 2020-0 Yes [id number] Q.25D Apply Methodi iamcinolone 4-[address] (MYCOLOG 00:00: 4 (four) Hospi ta II) 00 times a l 100,000-0.1 day as unit/g-% needed cream (vaginal itching or infection) . To outer vagina nystatin-tr 2020-0 Yes [id number] Q.25D Apply Methodi iamcinolone 4-[address] (MYCOLOG 00:00: 4 (four) Hospi ta II) 00 times a l 100,000-0.1 day as unit/g-% needed cream (vaginal itching or infection) . To outer vagina nystatin-tr 2020-0 Yes [id number] Q.25D Apply Methodi iamcinolone 4-[address] (MYCOLOG 00:00: 4 (four) Hospi ta II) 00 times a l 100,000-0.1 day as unit/g-% needed cream (vaginal itching or infection) . To outer vagina nystatin-tr 2020-0 Yes [id number] Q.25D Apply Methodi iamcinolone 4-[address] (MYCOLOG 00:00: 4 (four) Hospi ta II) 00 times a l 100,000-0.1 day as unit/g-% needed cream (vaginal itching or infection) . To outer vagina nystatin-tr 2020-0 Yes [id number] Q.25D Apply Methodi iamcinolone 4-[address] [...] mg/1.5 mL) 00 subcutane s pen injector HEParin 2020-0 Yes [id number] Q7D Meth ally (porcine) 3-24 st injection 17:00: Hospita 20,000 00 l Units HEParin 2020-0 Yes [id number] Q7D Meth ally (porcine) 3-24 st injection 17:00: Hospita 20,000 00 l Units HEParin 2020-0 Yes [id number] Q7D Meth ally (porcine) 3-24 st injection 17:00: Hospita 20,000 00 l Units HEParin 2020-0 Yes [id number] Q7D Meth ally (porcine) 3-24 st injection 17:00: Hospita 20,000 00 l Units HEParin 2020-0 Yes [id number] Q7D Meth ally (porcine) 3-24 st injection 17:00: Hospita 20,000 00 l Units HEParin 2020-0 Yes [id number] Q7D Meth ally (porcine) 3-24 st injection 17:00: Hospita 20,000 00 l Units HEParin 2020-0 Yes [id number] Q7D Meth ally (porcine) 3-24 st injection 17:00: Hospita 20,000 00 l Units HEParin 2020-0 Yes [id number] Q7D Meth ally (porcine) 3-24 st injection 17:00: Hospita 20,000 00 l Units HEParin 2020-0 Yes [id number] Q7D Meth ally (porcine) 3-24 st injection 17:00: Hospita 20,000 00 l Units HEParin 2020-0 Yes [id number] Q7D Meth ally (porcine) 3-24 st injection 17:00: Hospita 20,000 00 l Units HEParin 2020-0 Yes [id number] Q7D Meth ally (porcine) 3-24 st injection 17:00: Hospita 20,000 00 l Units HEParin 2020-0 Yes [id number] Q7D Meth ally (porcine) 3-24 st injection 17:00: Hospita 20,000 00 l Units HEParin 2020-0 Yes [id number] Q7D Meth ally (porcine) 3-24 st injection 17:00: Hospita 20,000 00 l Units HEParin 2020-0 Yes [id number] Q7D Meth ally (porcine) 3-24 st injection 17:00: Hospita 20,000 00 l Units HEParin 2020-0 Yes [id number] Q7D Meth ally (porcine) 3-24 st injection 17:00: Hospita 20,000 00 l Units HEParin 2020-0 Yes [id number] Q7D Meth ally (porcine) 3-24 st injection 17:00: Hospita 20,000 00 l Units HEParin 2020-0 Yes [id number] Q7D Meth ally (porcine) 3-24 st injection 17:00: Hospita 20,000 00 l Units HEParin 2020-0 Yes [id number] Q7D Meth ally (porcine) 3-24 st injection 17:00: Hospita 20,000 00 l Units HEParin 2020-0 Yes [id number] Q7D Meth ally (porcine) 3-24 st injection 17:00: Hospita 20,000 00 l Units HEParin 2020-0 Yes [id number] Q7D Meth ally (porcine) 3-24 st injection 17:00: Hospita 20,000 00 l Units HEParin 2020-0 Yes [id number] Q7D Meth ally (porcine) 3-24 st injection 17:00: Hospita 20,000 00 l Units conjugated 2020-0 Yes [id number] Apply 0.5 [facility]i estrogens 3-[address] (Premarin) 00:00: vaginally Ho spita 0.625 00 either l mg/gram internally vaginal (applicato cream r) or with finger to outer vagina twice weekly at night conjugated 2020-0 Yes [id number] Apply 0.5 [facility] estrogens 3-[address] (Premarin) 00:00: vaginally [facility] sp[facility] 0.625 00 either l mg/gram internally vaginal (applicato cream r) or with finger to outer vagina twice weekly at night conjugated 2020-0 Yes [id number] Apply 0.5 [facility] estrogens 3-[address] (Premarin) 00:00: vaginally [facility] 0.625 00 either l mg/gram internally vaginal (applicato cream r) or with finger to outer vagina twice weekly at night conjugated 2020-0 Yes [id number] Apply 0.5 [facility]i estrogens 3-[address] (Premarin) 00:00: vaginally [facility] sp[facility] 0.625 00 either l mg/gram internally vaginal (applicato cream r) or with finger to outer vagina twice weekly at night conjugated 2020-0 Yes [id number] Apply 0.5 [facility]i estrogens 3-[address] (Premarin) 00:00: vaginally [facility] 0.625 00 either l mg/gram internally vaginal (applicato cream r) or with finger to outer vagina twice weekly at night conjugated 2020-0 Yes [id number] Apply 0.5 [facility]i estrogens 3-[address] (Premarin) 00:00: vaginally [facility] sp[facility] 0.625 00 either l mg/gram internally vaginal (applicato cream r) or with finger to outer vagina twice weekly at night conjugated 2020-0 Yes [id number] Apply 0.5 [facility]i estrogens 3-[address] (Premarin) 00:00: vaginally [facility] sp[facility] 0.625 00 either l mg/gram internally vaginal (applicato cream r) or with finger to outer vagina twice weekly at night conjugated 2020-0 Yes [id number] Apply 0.5 [facility] estrogens 3-[address] (Premarin) 00:00: vaginally [facility] spita 0.625 00 either l mg/gram internally vaginal (applicato cream r) or with finger to outer vagina twice weekly at night conjugated 2020-0 Yes [id number] Apply 0.5 [facility]i estrogens 3-[address] (Premarin) 00:00: vaginally [facility] spita 0.625 00 either l mg/gram internally vaginal (applicato cream r) or with finger to outer vagina twice weekly at night conjugated 2020-0 Yes [id number] Apply 0.5 [facility]i estrogens 3-[address] (Premarin) 00:00: vaginally [facility] spita 0.625 00 either l mg/gram internally vaginal (applicato cream r) or with finger to outer vagina twice weekly at night conjugated 2020-0 Yes [id number] Apply 0.5 [facility]i estrogens 3-[address] (Premarin) 00:00: vaginally [facility] spita 0.625 00 either l mg/gram internally vaginal (applicato cream r) or with finger to outer vagina twice weekly at night conjugated 2020-0 Yes [id number] Apply 0.5 [facility]i estrogens 3-[address] (Premarin) 00:00: vaginally [facility] spita 0.625 00 either l mg/gram internally vaginal (applicato cream r) or with finger to outer vagina twice weekly at night conjugated 2020-0 Yes [id number] Apply 0.5 [facility]i estrogens 3-[address] (Premarin) 00:00: vaginally [facility] spita 0.625 00 either l mg/gram internally vaginal (applicato cream r) or with finger to outer vagina twice weekly at night conjugated 2020-0 Yes [id number] Apply 0.5 [facility] estrogens 3-[address] (Premarin) 00:00: vaginally [facility] spita 0.625 00 either l mg/gram internally vaginal (applicato cream r) or with finger to outer vagina twice weekly at night conjugated 2020-0 Yes [id number] Apply 0.5 [facility] estrogens 3-[address] (Premarin) 00:00: vaginally [facility] spita 0.625 00 either l mg/gram internally vaginal (applicato cream r) or with finger to outer vagina twice weekly at night conjugated 2020-0 Yes [id number] Apply 0.5 [facility]i estrogens 3-[address] (Premarin) 00:00: vaginally Ho spita 0.625 00 either l mg/gram internally vaginal (applicato cream r) or with finger to outer vagina twice weekly at night conjugated 2020-0 Yes [id number] Apply 0.5 [facility]i estrogens 3-[address] (Premarin) 00:00: vaginally Ho spita 0.625 00 either l mg/gram internally vaginal (applicato cream r) or with finger to outer vagina twice weekly at night conjugated 2020-0 Yes [id number] Apply 0.5 [facility] estrogens 3-[address] (Premarin) 00:00: vaginally [facility] spita 0.625 00 either l mg/gram internally vaginal (applicato cream r) or with finger to outer vagina twice weekly at night conjugated 2020-0 Yes [id number] Apply 0.5 [facility] estrogens 3-[address] (Premarin) 00:00: vaginally Ho spita 0.625 00 either l mg/gram internally vaginal (applicato cream r) or with finger to outer vagina twice weekly at night conjugated 2020-0 Yes [id number] Apply 0.5 [facility] estrogens 3-[address] (Premarin) 00:00: vaginally [facility] spita 0.625 00 either l mg/gram internally vaginal (applicato cream r) or with finger to outer vagina twice weekly at night conjugated 2020-0 Yes [id number] Apply 0.5 [facility]i estrogens 3-[address] [...] twice daily. amb custom 2020-0 Yes [place] [facility] compound 3- vaginal st 00:00: cream: 6% Hospita 00 gabapentin l , 2% Lidocaine, 2 % baclofen in water washable based. Apply 0.5 gram to outer vagina once or twice daily. amb custom 2020-0 Yes [place] [facility] compound [address] 00:00: cream: 6% Hospita 00 gabapentin l , 2% Lidocaine, 2 % baclofen in water washable based. Apply 0.5 gram to outer vagina once or twice daily. amb custom 2020-0 Yes [place] [facility] compound 09-[address] 00:00: cream: 6% Hospita 00 gabapentin l , 2% Lidocaine, 2 % baclofen in water washable based. Apply 0.5 gram to outer vagina once or twice daily. amb custom 2020-0 Yes [place] [facility] compound 09-[address] 00:00: cream: 6% Hospita 00 gabapentin l , 2% Lidocaine, 2 % baclofen in water washable based. Apply 0.5 gram to outer vagina once or twice daily. amb custom 2020-0 Yes [place] [facility] compound 09-[address] 00:00: cream: 6% [facility] gabapentin l , 2% Lidocaine, 2 % baclofen in water washable based. Apply 0.5 gram to outer vagina once or twice daily. amb custom 2020-0 Yes [place] arethaodi compound 3- vaginal st 00:00: cream: 6% [facility] 00 gabapentin l , 2% Lidocaine, 2 % baclofen in water washable based. Apply 0.5 gram to outer vagina once or twice daily. amb custom 2020-0 Yes [place] arethaodi compound 3- vaginal st 00:00: cream: 6% [facility] 00 gabapentin l , 2% Lidocaine, 2 % baclofen in water washable based. Apply 0.5 gram to outer vagina once or twice daily. amb custom 2020-0 Yes [place] [facility] compound [address] 00:00: cream: [...] custom 2020-0 Yes [place] arethaodi compound 3-[address] 00:00: cream: 6% [facility] 00 gabapentin l , 2% Lidocaine, 2 % baclofen in water washable based. Apply 0.5 gram to outer vagina once or twice daily. FREESTYLE 2020-0 Yes [id number] 1{each} 1 Each [facility] BRENDA 14 3-03 every 14 ity of DAY SENSOR 00:00: ([place]teen[place] 00 days. [facility] FREESTYLE 2020-0 Yes [id number] 1{each} 1 Each [facility] BRENDA 14 3-03 daily. ity of DAY READER 00:00: [facility] 00 Medical Branch FREESTYLE 2020-0 Yes [id number] 1{each} 1 Each [facility] BRENDA 14 3-03 every 14 ity of DAY SENSOR 00:00: (fourteen[place] Kit 00 days. [facility] FREESTYLE 2020-0 Yes [id number] 1{each} 1 Each [facility] BRENDA 14 3-03 daily. ity of DAY READER 00:00: [facility] 00 Medical Branch FREESTYLE 2020-0 Yes [id number] 1{each} 1 Each [facility] BRENDA 14 3-03 every 14 ity of DAY SENSOR 00:00: (fourteen[place] Kit 00 days. [facility] FREESTYLE 2020-0 Yes [id number] 1{each} 1 Each [facility] BRENDA 14 3-03 daily. ity of DAY READER 00:00: [facility] 00 Medical Branch FREESTYLE 2020-0 Yes [id number] 1{each} 1 Each [facility] BRENDA 14 3-03 every 14 ity of DAY SENSOR 00:00: (fourteen[place] Kit 00 days. [facility] FREESTYLE 2020-0 Yes [id number] 1{each} 1 Each [facility] BRENDA 14 3-03 daily. ity of DAY READER 00:00: [facility] 00 Medical Branch FREESTYLE 2020-0 Yes [id number] 1{each} 1 Each [facility] BRENDA 14 3-03 every 14 ity of DAY SENSOR 00:00: (fourteen[place] Kit 00 days. [facility] FREESTYLE 2020-0 Yes [id number] 1{each} 1 Each [facility] BRENDA 14 3-03 daily. ity of DAY READER 00:00: [place] [facility] Branch FREESTYLE 2020-0 Yes [id number] 1{each} 1 Each [facility] BRENDA 14 3-03 every 14 ity of DAY SENSOR 00:00: (fourteen[place] Kit 00 days. [facility] FREESTYLE 2020-0 Yes [id number] 1{each} 1 Each [facility] BRENDA 14 3-03 daily. ity of DAY READER 00:00: [place] [facility] 00 Medical Branch FREESTYLE 2020-0 Yes [id number] 1{each} 1 Each [facility] BRENDA 14 3-03 every 14 ity of DAY SENSOR 00:00: (fourteen[place] Kit 00 days. [facility] FREESTYLE 2020-0 Yes [id number] 1{each} 1 Each [facility] BRENDA 14 3-03 daily. ity of DAY READER 00:00: [facility] 00 Medical Branch FREESTYLE 2020-0 Yes [id number] 1{each} 1 Each [facility] BRENDA 14 3-03 every 14 ity of DAY SENSOR 00:00: (fourteen[place] Kit 00 days. Medical [facility] FREESTYLE 2020-0 Yes [id number] 1{each} 1 Each [facility] BRENDA 14 3-03 daily. ity of DAY READER 00:00: [place] [facility] 00 Medical Branch FREESTYLE 2020-0 Yes [id number] 1{each} 1 Each [facility] BRENDA 14 3-03 every 14 ity of DAY SENSOR 00:00: (fourteen) [place] Kit 00 days. Medical Branch FREESTYLE 2020-0 Yes [id number] 1{each} 1 Each [facility] BRENDA 14 3-03 daily. ity of DAY READER 00:00: [place] [facility] 00 Medical Branch FREESTYLE 2020-0 Yes [id number] 1{each} 1 Each [facility] BRENDA 14 3-03 every 14 ity of DAY SENSOR 00:00: (fourteen) [place] Kit 00 days. Medical Branch FREESTYLE 2020-0 Yes [id number] 1{each} 1 Each [facility] BRENDA 14 3-03 daily. ity of DAY READER 00:00: [place] [facility] 00 Medical Branch FREESTYLE 2020-0 Yes [id number] 1{each} 1 Each Univers BRENDA 14 3-03 every 14 ity of DAY SENSOR 00:00: (fourteen) [place] Kit 00 days. Medical Branch FREESTYLE 2020-0 Yes [id number] 1{each} 1 Each Univers BRENDA 14 3-03 daily. ity of DAY READER 00:00: [facility] 00 Medical Branch Ozempic 2020-0 No [...] tablet 2-30 00:00: 00 traMADol 2018-07 Yes [id number] 50mg Take 1 Uni vers (ULTRAM) 50 2-28 tablet by ity of mg tablet 00:00: mouth [place] 00 every 6 Medical (six) Branch hours as needed for Pain (scale 7-10). ondansetron 2018-07 Yes [id number] 4mg Take 1 Univers (ZOFRAN) 4 2-28 tablet by ity of mg tablet 00:00: mouth [place] 00 every 8 Medical (eight) Branch hours as needed for Nausea and Vomiting (N/V). ondansetron 2018-07 Yes [id number] 4mg Take 1 Univers (ZOFRAN) 4 2-28 tablet by ity of mg tablet 00:00: mouth [place] 00 every 8 Medical (eight) Branch hours as needed for Nausea and Vomiting (N/V). ondansetron 2018-07 Yes [id number] 4mg Take 1 Univers (ZOFRAN) 4 2-28 tablet by ity of mg tablet 00:00: mouth [place] 00 every 8 Medical (eight) Branch hours as needed for Nausea and Vomiting (N/V). ondansetron 2018-07 Yes [id number] 4mg Take 1 Univers (ZOFRAN) 4 2-28 tablet by ity of mg tablet 00:00: mouth [place] 00 every 8 Medical (eight) Branch hours as needed for Nausea and Vomiting (N/V). ondansetron 2018-07 Yes [id number] 4mg Take 1 Univers (ZOFRAN) 4 2-28 tablet by ity of mg tablet 00:00: mouth [place] 00 every 8 Medical (eight) Branch hours as needed for Nausea and Vomiting (N/V). ondansetron 2018-07 Yes [id number] 4mg Take 1 Univers (ZOFRAN) 4 2-28 tablet by ity of mg tablet 00:00: mouth [place] 00 every 8 Medical (eight) Branch hours as needed for Nausea and Vomiting (N/V). ondansetron 2018-07 Yes [id number] 4mg Take 1 Univers (ZOFRAN) 4 2-28 tablet by ity of mg tablet 00:00: mouth [place] 00 every 8 Medical (eight) Branch hours as needed for Nausea and Vomiting (N/V). ondansetron 2018-07- No [id number] 4mg Take 1 Univers (ZOFRAN) 4 2-28 02-16 tablet by ity of mg tablet 00:00: 00:00 mouth [place] 00 :00 every 8 Medical (eight) Branch hours as needed for Nausea and Vomiting (N/V). traMADol 2018-07- No [id number] 50mg Take 1 Un fabiana (ULTRAM) 50 [...] % 0-16 shampoo 00:00: 00 Xenical 120 2018- No 1mg mg capsule 0-16 00:00: 00 Xenical 120 1 No 1mg mg capsule 0-16 00:00: 00 [...] mg capsule 00:00: 00 hydrOXYzine 2018-0 Yes [id number] 10mg Take 1 Univers 10 mg 9-13 tablet by ity of tablet 00:00: mouth [place] 00 every 6 Medical (six) Branch hours. hydrOXYzine 2018- Yes [id number] 10mg Take 1 Univers 10 mg 9-13 tablet by ity of tablet 00:00: mouth [place] 00 every 6 Medical (six) Branch hours. hydrOXYzine Yes [id number] 10mg Take 1 Univers 10 mg 9-13 tablet by ity of tablet 00:00: mouth [place] 00 every 6 Medical (six) Branch hours. hydrOXYzine Yes [id number] 10mg Take 1 Univers 10 mg 9-13 tablet by ity of tablet 00:00: mouth [place] 00 every 6 Medical (six) Branch hours. hydrOXYzine 2018-0 Yes [id number] 10mg Take 1 Univers 10 mg 9-13 tablet by ity of tablet 00:00: mouth [place] 00 every 6 Medical (six) Branch hours. hydrOXYzine 2018- Yes [id number] 10mg Take 1 Univers 10 mg 9-13 tablet by ity of tablet 00:00: mouth [place] 00 every 6 Medical (six) Branch hours. hydrOXYzine 0 Yes [id number] 10mg Take 1 Univers 10 mg 9-13 tablet by ity of tablet 00:00: mouth [place] 00 every 6 Medical (six) Branch hours. hydrOXYzine 2018-0 2023- No [id number] 10mg Take 1 Univers 10 mg 9-13 [...] 00 amoxicillin 2018-0 No 1mg 875 mg 9- tablet 00:00: 00 Claritin 10 2018-0 No [...] mg tablet 02-03 00:00: 00 Abilify 5 2016-0 No 1mg [...] 00 trazodone 2017-0 No 1mg 150 mg 4 tablet 00:00: 00 Abilify 5 2016-0 No 1mg mg tablet 4 00:00: 00 Lexapro 20 2017-0 No 15mg mg tablet 4 00:00: 00 trazodone 2016-0 No 1mg 150 mg 10-19 tablet 00:00: 00 Abilify 2016-0 No 1mg mg tablet 10-19 00:00: 00 Lexapro 20 2016-0 No 15mg mg tablet 10-19 00:00: 00 trazodone 2017-0 No 1mg 150 mg 10-19 tablet 00:00: 00 Carvedilol 2016-0 2022- No [id number] 6.25mg Take 1 Andreea 6.25 MG 4-10 - tablet by Seybol d oral Tab 00:00: 00:00 mouth 2 - 00 :00 times Externa daily l (with meals) MethIMAzole 2016-0 2022- No [id number] 10mg Take 1 Andreea 10 MG oral 4-10 -28 tablet by Sey bold Tab 00:00: 00:00 [...] 1-05 L injection 00:00: solution 00 Augmentin 2016-0 No 1mg 500 mg-125 1-05 mg tablet [...] 00 Lexapro 2015-07 No 1mg mg tablet 07-13 00:00: [...] Effexor XR 2015-0 No 1mg 150 mg 28 capsule,ext 00:00: ended 00 release doxepin 25 [...] Januvia 100 2015-0 No 1mg mg tablet 5-08 00:00: 00 paroxetine 2015-0 No 1mg 10 [...] lisinopril 2014-0 No 1mg 5 mg tablet 3-17 00:00: 00 paroxetine 2015-0 No 1mg 10 mg 3-17 tablet 00:00: 00 metformin 2015-0 No 1mg 1,000 mg 3-17 tablet 00:00: 00 glimepiride 2014-0 No 1mg 4 mg tablet 3-17 00:00: 00 fluconazole 2015-0 No 1mg 150 mg 3-17 tablet 00:00: 00 lisinopril 2014-0 No 1mg 5 mg tablet 3-17 00:00: [...] Strips ( 00 Medical TOUCH Branch COMBO) Cmpk Lancets [...] Strips ( 00 Medical TOUCH Branch COMBO) Cmpk Lancets & 2012- Yes Univers Blood 2-14 ity of Glucose 00:00: [place] Strips (ONE 00 Medical TOUCH Branch COMBO) Cmpk Lancets & 2012- Yes Univers Blood 2-14 ity of Glucose 00:00: [place] Strips (ONE 00 Medical TOUCH Branch COMBO) [facility]- Yes Univers Blood 2-14 ity of Glucose 00:00: [place] Strips ( 00 Medical TOUCH Branch COMBO) [facility] Lanc[facility] & 2012- Yes Univers Blood 2-14 ity of Glucose 00:00: [place] Strips ( 00 Medical TOUCH Branch COMBO) [facility] Blood-Gluco Yes Univer s se Meter [...] Dose 2022-06-02 Completed Unive rsity of 00:00:00 [facility] Moderna COVID-19 2021-07-24 Completed Vaccine 00:00:00 Moderna [...] Vaccine 00:00:00 Covid-19 Vaccine 2021-07-24 Completed Andreea Brower (Spikevax), 00:00:00 Exter nal Mrna-lnp, Florentin Protein, [...] Pf Covid-19 Vaccine 2021-07-24 Completed Andreea Mota eyborafael - Moderna (Spikevax), 00:00:00 Exter nal Mrna-lnp, Florentin Protein, Pf Covid-19 Vaccine 2021-07-24 Completed Andreea Mota eybold - Moderna (Spikevax), 00:00:00 Exter nal Mrna-lnp, Florentin Protein, Pf Covid-19 Vaccine 2021-07-24 Completed Andreea morseld - Moderna (Spikevax), 00:00:00 Exter nal Mrna-lnp, Florentin Protein, Pf Pneumococcal 2020-05-21 Completed University o f Polysaccharide, 00:00:00 [facility] ical PPSV23 (PNEUMOVAX) Branch TDAP 2020-05-21 Completed University of 00:00:00 [facility] Pneumococcal 2020-05-21 Completed University o f Polysaccharide, 00:00:00 [place] [facility] ical PPSV23 (PNEUMOVAX) Branch TDAP 2020-05-21 Completed University of 00:00:00 [facility] Pneumococcal 2020-05-21 Completed University o f Polysaccharide, 00:00:00 [place] [facility] ical PPSV23 (PNEUMOVAX) Branch TDAP 2020-05-21 Completed University of 00:00:00 [facility] Pneumococcal 2020-05-21 Completed University o f Polysaccharide, 00:00:00 [place] [facility] ical PPSV23 (PNEUMOVAX) Branch TDAP 2020-05-21 Completed University of 00:00:00 [facility] Pneumococcal 2020-05-21 Completed University o f Polysaccharide, 00:00:00 [place] [facility] ical PPSV23 (PNEUMOVAX) Branch TDAP 2020-05-21 Completed University of 00:00:00 [facility] Pneumococcal 2020-05-21 Completed University o f Polysaccharide, 00:00:00 [facility] ical PPSV23 (PNEUMOVAX) Branch TDAP 2020-05-21 Completed University of 00:00:00 [facility] Pneumococcal 2020-05-21 Completed University o f Polysaccharide, 00:00:00 [place] [facility] ical PPSV23 (PNEUMOVAX) Branch TDAP 2020-05-21 Completed University of 00:00:00 [facility] Pneumococcal 2020-05-21 Completed University o f Polysaccharide, 00:00:00 [facility] ical PPSV23 (PNEUMOVAX) Branch TDAP 2020-05-21 Completed University of 00:00:00 [facility] Pneumococcal 2020-05-21 Completed University o f Polysaccharide, 00:00:00 [facility] ical PPSV23 (PNEUMOVAX) Branch TDAP 2020-05-21 Completed University of 00:00:00 [facility] Pneumococcal 2020-05-21 Completed University o f Polysaccharide, 00:00:00 [facility] ical PPSV23 (PNEUMOVAX) Branch TDAP 2020-05-21 Completed University of 00:00:00 [facility] Pneumococcal 2020-05-21 Completed University o f Polysaccharide, 00:00:00 [facility] ical PPSV23 (PNEUMOVAX) Branch TDAP 2020-05-21 Completed University of 00:00:00 [facility] Pneumococcal Vaccine, 2020-05-21 Completed Spencer sey Seybold [...] External MMR 2013-07-25 Completed University of 00:00:00 [facility] MMR 2013-07-25 Completed University of 00:00:00 [facility] MMR 2013-07-25 Completed University of 00:00:00 [facility] Branch MMR 2013-07-25 Completed University of 00:00:00 [facility] MMR 2013-07-25 Completed University of 00:00:00 [facility] MMR 2013-07-25 Completed University of 00:00:00 [facility] MMR 2013-07-25 Completed University of 00:00:00 [facility] MMR 2013-07-25 Completed University of 00:00:00 [facility] MMR 2013-07-25 Completed University of 00:00:00 [facility] MMR 2013-07-25 Completed University of 00:00:00 [facility] MMR 2013-07-25 Completed University of 00:00:00 [facility] MMR- Measles, Mumps, 2013-07-25 Completed Mildred ey Seybold - Rubella 00:00:00 External MMR- Measles, Mumps, 2013-07-25 Completed Mildred ey Seybold - Rubella 00:00:00 External MMR- Measles, Mumps, 2013-07-25 Completed Mildred ey Seybold - Rubella 00:00:00 External MMR- Measles, Mumps, 2013-07-25 Completed Mildred ey Seybold - Rubella 00:00:00 External TDAP 2013-05-21 Completed University of 00:00:00 [facility] TDAP 2013-05-21 Completed University of 00:00:00 [facility] TDAP 2013-05-21 Completed University of 00:00:00 [facility] TDAP 2013-05-21 Completed University of 00:00:00 [facility] TDAP 2013-05-21 Completed University of 00:00:00 [facility] TDAP 2013-05-21 Completed University of 00:00:00 [facility] TDAP 2013-05-21 Completed University of 00:00:00 [facility] TDAP 2013-05-21 Completed University of 00:00:00 [facility] TDAP 2013-05-21 Completed University of 00:00:00 [facility] TDAP 2013-05-21 Completed University of 00:00:00 [facility] TDAP 2013-05-21 Completed University of 00:00:00 [facility] Tdap- (Boostrix, 2013-05-21 Completed Andreea Mota eybold - Adacel) 00:00:00 External Tdap- (Boostrix, 2013-05-21 Completed Andreea Mota eybold - Adacel) 00:00:00 External Tdap- (Boostrix, 2013-05-21 Completed Andreea Mtoa eybold - Adacel) 00:00:00 External Tdap- (Boostrix, 2013-05-21 Completed Andreea Mota eybold - Adacel) 00:00:00 External Influenza Virus 2013-03-19 Completed Universit y of Vaccine 00:00:00 [facility] Influenza Virus 2013-03-19 Completed Universit y of Vaccine 00:00:00 [facility] Influenza Virus 2013-03-19 Completed Universit y of Vaccine 00:00:00 [facility] Influenza Virus 2013-03-19 Completed Universit y of Vaccine 00:00:00 [facility] Influenza Virus 2013-03-19 Completed Universit y of Vaccine 00:00:00 [facility] Influenza Virus 2013-03-19 Completed Universit y of Vaccine 00:00:00 [facility] Influenza Virus 2013-03-19 Completed Universit y of Vaccine 00:00:00 [facility] Influenza Virus 2013-03-19 Completed Universit y of Vaccine 00:00:00 [facility] Influenza Virus 2013-03-19 Completed Universit y of Vaccine 00:00:00 [facility] Influenza Virus 2013-03-19 Completed Universit y of Vaccine 00:00:00 [facility] Influenza Virus 2013-03-19 Completed Universit y of Vaccine 00:00:00 [facility] Influenza Virus 2013-03-19 Completed Andreea Godfrey ybold - Vaccine, Unspecified 00:00:00 Exte rnal Formulation Influenza Virus 2013-03-19 Completed Andreea Se ybold - Vaccine, Unspecified 00:00:00 Exte rnal Formulation Influenza Virus 2013-03-19 Completed Andreea Se ybold - Vaccine, Unspecified 00:00:00 Exte rnal Formulation Influenza Virus 2013-03-19 Completed Andreea Se ybold - Vaccine, Unspecified 00:00:00 Exte rnal Formulation Rubella 2008-04-17 Completed University of 00:00:00 [facility] Rubella 2008-04-17 Completed University of 00:00:00 [facility] Rubella 2008-04-17 Completed University of 00:00:00 [facility] Rubella 2008-04-17 Completed University of 00:00:00 [place] [facility] Rubella 2008-04-17 Completed University of 00:00:00 [place] [facility] Rubella 2008-04-17 Completed University of 00:00:00 [facility] Rubella 2008-04-17 Completed University of 00:00:00 [facility] Rubella 2008-04-17 Completed University of 00:00:00 [facility] Rubella 2008-04-17 Completed University of 00:00:00 [facility] Rubella 2008-04-17 Completed University of 00:00:00 [facility] Rubella 2008-04-17 Completed University of 00:00:00 [facility] Rubella 2008-04-17 Completed Andreea Corona - 00:00:00 External Rubella 2008-04-17 Completed Andreea Corona - 00:00:00 External Rubella 2008-04-17 Completed Andreea Corona - 00:00:00 External Rubella 2008-04-17 Completed Andreea Corona - 00:00:00 External TD, NOS 2004-07-11 Completed University of 00:00:00 [facility] TD, NOS 2004-07-11 Completed University of 00:00:00 [facility] Td 2004-07-11 Completed University of 00:00:00 [facility] Td 2004-07-11 Completed University of 00:00:00 [facility] Td 2004-07-11 Completed University of 00:00:00 [facility] Td 2004-07-11 Completed University of 00:00:00 [facility] Td 2004-07-11 Completed University of 00:00:00 [facility] Td 2004-07-11 Completed University of 00:00:00 [facility] Td 2004-07-11 Completed University of 00:00:00 [facility] TD, NOS 2004-07-11 Completed University of 00:00:[address] [place] [facility] Branch TD, NOS 2004-07-11 Completed University of 00:00:00 [facility] Tdap- (Boostrix, 2004-07-11 Completed Andreea casillasborafael - Adacel) 00:00:00 External Tdap- (Boostrix, 2004-07-11 Completed Andreea casillasbold - Adacel) 00:00:00 External Tdap- (Boostrix, 2004-07-11 Completed Andreea Mota eybold - Adacel) 00:00:00 External Tdap- (Boostrix, 2004-07-11 Completed Andreea Mota eybold - Adacel) 00:00:00 External Vital Signs Vital Name Observation Time Observation Value Comments Source Systolic blood 2023-02-17 21:28:00 118 mm[Hg] Andreea Seybold - pressure External Diastolic blood 2023-02-17 21:28:00 60 mm[Hg] Vikram gray Seybold - pressure External Heart rate 2023-02-17 21:28:00 94 /min Andreea casillasbold - External Body temperature 2023-02-17 21:28:00 36.39 Lorenza Mildred casillas Seybraegan - External Respiratory rate 2023-02-17 21:28:00 20 /min Mildred casillas Seybold - External Body height 2023-02-17 21:28:00 162.6 cm Andreea casillasborafael - External Body weight 2023-02-17 21:28:00 106.232 kg Andreea casillasbold - External BMI 2023-02-17 21:28:00 40.20 kg/m2 Andreea casillasborafael - External Oxygen saturation in 2023-02-17 21:28:00 98 /min Andreea Corona - Arterial blood by External Pulse oximetry Systolic blood 2023-01-12 12:08:00 108 mm[Hg] Univer sity [facility] Diastolic blood 2023-01-12 12:08:00 66 [facility]Hg[facility] 2023-[facility]-12 12:08:00 68 /min [facility] Body temperature 2023-01-12 12:08:00 [facility] 2023-01-12 12:08:00 14 /[facility] in 2023-01-12 12:08:00 96 /min University Arterial blood by [facility] Pulse oximetry Branch Body weight 2023-01-12 08:58:00 105.96 kg [facility] BMI 2023-01-12 08:58:00 40.10 kg/m2 [facility] Body height 2023-01-10 16:47:00 162.6 cm [facility] Systolic blood 2022-12-21 19:08:00 115 mm[Hg] Andreea Seybold - pressure External Diastolic blood 2022-12-21 19:08:00 77 mm[Hg] Kelse y Seybold - pressure External Heart rate 2022-12-21 19:08:00 96 /min Andreea S eybold - External Body temperature 2022-12-21 19:08:00 [...] External Diastolic blood 2022-12-17 19:52:00 81 mm[Hg] Spencerse y Seybold - pressure External Heart rate 2022-12-17 19:52:00 119 /min Andreea S eybold - External Body temperature 2022-12-17 19:52:00 36.89 Lorenza Mildred ey Seybold - External Respiratory rate 2022-12-17 19:52:00 15 /min Mildred ey Seybold - External Body height 2022-12-17 19:52:00 162.6 cm Andreea S eybold - External Body weight 2022-12-17 19:52:00 105.688 kg Andreea S eybold - External BMI 2022-12-17 19:52:00 39.99 kg/m2 Andreea S eybold - External Oxygen saturation in 2022-12-17 19:52:00 99 /min Andreea Corona - Arterial blood by External Pulse oximetry Systolic blood 2022-11-03 15:00:00 103 mm[Hg] Narcisaer skip of pressure [facility] Diastolic blood 2022-11-03 15:00:00 72 mm[Hg] [facility] Heart rate 2022-11-03 15:00:00 76 /min [facility] Oxygen saturation in 2022-11-03 15:00:00 96 /min University Arterial blood by [facility] Pulse oximetry Branch Respiratory rate 2022-11-03 14:58:00 14 /min [facility] 2022-11-03 13:25:00 37.22 Lorenza [facility] 2022-11-03 13:25:00 99.791 kg [facility] BMI 2022-11-03 13:25:00 37.76 kg/m2 [facility] Systolic blood 2022-10-01 20:47:00 110 mm[Hg] Andreea Godfreyybold - pressure External Diastolic blood 2022-10-01 20:47:00 75 mm[Hg] Vikram gray Seybold - pressure External Heart rate 2022-10-01 20:47:00 104 /min Andreeasera casillasbold - External Body temperature 2022-10-01 20:47:00 37.11 Lorenza Mildred ey Seybold - External Respiratory rate 2022-10-01 20:47:00 14 /min Mildred sonja Seybold - External Body height 2022-10-01 20:47:00 162.6 cm Andreea casillasbold - External Body weight 2022-10-01 20:47:00 105.235 kg Andreea Nakul eybold - External BMI 2022-10-01 20:47:00 39.82 kg/m2 Andreea Nakul casillasbold - External Oxygen saturation in 2022-10-01 20:47:00 99 /min Andreea Corona - Arterial blood by External Pulse oximetry Systolic blood 2022-09-10 16:20:00 105 mm[Hg] Andreea Godfreyybold - pressure External Diastolic blood 2022-09-10 16:20:00 73 mm[Hg] Spencerse y Seybold - pressure External Heart rate 2022-09-10 16:20:00 102 /min Andreea S eybold - External Body temperature 2022-09-10 16:20:00 [...] Diastolic blood 2022-09-07 20:49:00 68 mm[Hg] Vikram gray Seybold - pressure External Heart rate 2022-09-07 20:49:00 119 /min Andreea Mota eybold - External Body temperature 2022-09-07 20:49:00 37.17 Lorenza Mildred casillas Seybold - External Respiratory rate 2022-09-07 20:49:00 14 /min Mildred casillas Seybold - External Body height 2022-09-07 20:49:00 162.6 cm Andreea Mota eybold - External Body weight 2022-09-07 20:49:00 109.317 kg Andreea Mota eybold - External BMI 2022-09-07 20:49:00 41.37 kg/m2 Andreea Mota eybold - External Oxygen saturation in 2022-09-07 20:49:00 96 /min Andreea Corona - Arterial blood by External Pulse oximetry Systolic blood 2022-08-30 14:00:00 112 mm[Hg] Univer sity of pressure [facility] Diastolic blood 2022-08-30 14:00:00 75 mm[Hg] Unive rsity of [facility] Oxygen saturation in 2022-08-30 14:00:00 97 /min [facility] Arterial blood by [facility] Pulse oximetry Branch Heart rate 2022-08-30 13:00:00 93 /min [facility] Body temperature 2022-08-30 13:00:00 35.83 [facility] 2022-08-30 13:00:00 15 /min Univ ersity [facility] Body weight 2022-08-29 12:00:00 112.492 kg [facility] BMI 2022-08-29 12:00:00 42.57 kg/m2 [facility] Body height 2022-08-27 00:21:00 162.6 cm [facility] Systolic blood 2022-06-22 04:59:00 110 mm[Hg] Univer sity of pressure [facility] Diastolic blood 2022-06-22 04:59:00 70 mm[Hg] Unive rsity of pressure [facility] Heart rate 2022-06-22 04:59:00 107 /min [facility] Respiratory rate 2022-06-22 04:59:00 22 /min Univ [facility] Oxygen saturation in 2022-06-22 04:59:00 97 /min [facility] of Arterial blood by [facility] Pulse oximetry Branch Body temperature 2022-06-21 23:26:00 37.28 Lorenza Univ ersity [facility] Body height 2022-06-21 23:26:00 162.6 cm [facility] Body weight 2022-06-21 23:26:00 98.431 kg [facility] BMI 2022-06-21 23:26:00 37.25 kg/m2 [facility] Systolic blood 2021-10-17 02:05:00 117 mm[Hg] Univer sity of pressure [facility] Diastolic blood 2021-10-17 02:05:00 63 mm[Hg] Unive rsity of pressure [facility] Heart rate 2021-10-17 02:05:00 76 /min [facility] Respiratory rate 2021-10-17 02:05:00 18 /min Univ [facility] Oxygen saturation in 2021-10-17 02:05:00 98 /min [facility] Arterial blood by [email or web address] [facility] Pulse oximetry Branch Body temperature 2021-10-16 22:30:00 37.33 Lorenza [facility] Body weight 2021-10-16 21:38:00 103.42 kg [facility] BMI 2021-10-16 21:38:00 37.94 kg/m2 [facility] Systolic blood 2021-09-22 17:00:00 108 mm[Hg] Univer sity of pressure [facility] Diastolic blood 2021-09-22 17:00:00 77 mm[Hg] Unive rsity [facility] Heart rate 2021-09-22 17:00:00 90 /min [facility] Oxygen saturation in 2021-09-22 17:00:00 97 /min [facility] Arterial blood by [email or web address] [facility] Pulse oximetry Branch Respiratory rate 2021-09-22 15:00:00 18 /min Univ [facility] Body temperature 2021-09-22 14:52:00 37.11 Lorenza [facility] Body weight 2021-09-22 14:52:00 103.42 kg [facility] BMI 2021-09-22 14:52:00 37.94 kg/m2 [facility] Systolic blood 2021-06-18 12:00:00 142 mm[Hg] Univer sity of pressure [facility] Diastolic blood 2021-06-18 12:00:00 94 mm[Hg] Unive rsity of pressure [facility] Heart rate 2021-06-18 12:00:00 98 /min [facility] Body temperature 2021-06-18 12:00:00 36.56 Lorenza Univ [facility] Respiratory rate 2021-06-18 12:00:00 13 /min [facility] Oxygen saturation in 2021-06-18 12:00:00 95 /min [facility] Arterial blood by [facility] Pulse oximetry Branch Body height 2021-06-18 10:37:00 165.1 cm [facility] Body weight 2021-06-18 10:37:00 107.502 kg [facility] BMI 2021-06-18 10:37:00 39.44 kg/m2 [facility] Systolic blood 2021-05-31 01:34:00 139 mm[Hg] Univer sity of pressure [facility] Diastolic blood 2021-05-31 01:34:00 90 mm[Hg] Unive rsity of pressure [facility] Heart rate 2021-05-31 01:34:00 112 /min [facility] Respiratory rate 2021-05-31 01:34:00 20 /min [facility] Oxygen saturation in 2021-05-31 01:34:00 98 /min [facility] blood by [facility] Pulse oximetry Branch Body weight 2021-05-30 21:47:00 107.502 kg [facility] BMI 2021-05-30 21:47:00 40.68 kg/m2 [facility] BP Systolic 2022-06-18 10:43:00 118 mm[Hg] [...] POCT GLUCOSE (AUTOMATED) 2023-01-12 12:34:00 Gudelia Garcia [facility] LIPASE 2023-01-12 10:11:00 Haroon Mary [facility] BASIC METABOLIC PANEL 2023-01-12 10:11:00 Mary Morrison [facility] (NA, K, CL, CO2, Medical Branch GLUCOSE, BUN, CREATININE, CA) CBC WITH DIFF 2023-01-12 10:11:00 Haroon Mary Sirisha [facility] POCT GLUCOSE (AUTOMATED) 2023-01-12 02:34:00 Gudelia Garcia [facility] POCT GLUCOSE (AUTOMATED) 2023-01-11 21:20:00 Gudelia Garcia [facility] POCT GLUCOSE (AUTOMATED) 2023-01-11 16:26:00 Gudelia Garcia [facility] POCT GLUCOSE (AUTOMATED) 2023-01-11 12:42:00 Gudelia Garcia [facility] LIPID PANEL 2023-01-11 06:30:00 Gudelia Garcia [facility] ([id number])(TOTAL Medical Branch CHOLESTEROL, TRIGLYCERIDES, HDL) LOW-DENSITY LIPOPROTEIN, 2023-01-11 06:30:00 Gudelia Garcia [facility] POCT GLUCOSE (AUTOMATED) 2023-01-11 02:07:00 Gudelia Garcia [facility] ADC CLC OR LCC ONLY - 2023-01-10 20:13:00 Deya Juarez [facility] WET [facility] HSV 1 AND 2 GLYCOPROTEIN 2023-01-10 20:13:00 Judy Juarez [facility] G IGG [facility] US PELVIS COMPLETE WITH 2023-01-10 20:11:36 Howie Juarez [facility] TRANSVAGINAL [facility] GLYCOSYLATED HEMOGLOBIN 2023-01-10 17:35:00 Gudelia Garcia [facility] (A1C) [facility] CT ABDOMEN PELVIS W 2023-01-10 15:07:29 Ngoc Tinajero [facility] CONTRAST [facility] POCT TEST 2023-01-10 13:37:00 Ngoc Tinajero [facility] TRIGLYCERIDES 2023-01-10 13:29:00 Lior [facility] LIPASE 2023-01-10 13:29:00 Lior Ngoc [facility] COMP. METABOLIC PANEL 2023-01-10 13:29:00 Ngoc Tinajero [facility] ([id number]) [facility] CBC WITH DIFF 2023-01-10 13:29:00 Ngoc Tinajero [facility] ASSIGNMENT OF BENEFITS 2023-01-10 12:54:19 Doctor Unassigned, No [facility] Name [facility] URINALYSIS 2023-01-10 12:31:00 Ngoc Tinajero [facility] CONSENT/REFUSAL FOR 2023-01-10 12:22:34 Doctor Unassigned, No [facility] DIAGNOSIS AND TREATMENT Name [facility] REAGENT STRIP/BLOOD 2022-12-21 00:00:00 Outside, Reported Andreea Corona - GLUCOSE External LIPASE 2022-11-03 13:37:[facility] HEPATIC FUNCTION PANEL 2022-11-03 13:37:00 Loni, [facility] ([id number]) (ALB,T.PRO,BILI Medical Branch T,BU/BC,ALT,AST,ALK PHOS) BASIC METABOLIC PANEL 2022-11-03 13:37[facility] ([facility], K, CL, CO2, Medical Branch GLUCOSE, BUN, CREATININE, CA) LIPID PANEL 2022-11-03 13:37:00 [facility] ([id number]TOTAL Medical Branch CHOLESTEROL, TRIGLYCERIDES, HDL) CBC WITH DIFF 2022-11-03 13:37:00 [facility] 2022-11-03 13:37:00 Katelyn Ivey [place] [facility] CONSENT/REFUSAL FOR 2022-11-03 13:22:43 Doctor Unassigned, No Un [facility] DIAGNOSIS AND TREATMENT Name [facility] REAGENT STRIP/BLOOD 2022-09-10 00:00:00 Outside, Reported Andreea Corona - GLUCOSE External POCT GLUCOSE (AUTOMATED) 2022-08-30 14:52:00 Meri Wray Uni versity [facility] POCT GLUCOSE (AUTOMATED) 2022-08-30 13:01:00 Meri Wray Uni versity [facility] POCT GLUCOSE (AUTOMATED) 2022-08-30 12:03:00 Meri Wray Uni versity [facility] POCT GLUCOSE (AUTOMATED) 2022-08-30 11:04:[address] [facility] TRIGLYCERIDES 2022-08-30 10:18:00 Kamala [facility] BASIC METABOLIC PANEL 2022-08-30 10:18:00 Meri Wray [facility] (NA, K, CL, CO2, Medical Branch GLUCOSE, BUN, CREATININE, CA) POCT GLUCOSE (AUTOMATED) 2022-08-30 10:11:00 Meri Wray Uni [facility] POCT GLUCOSE (AUTOMATED) 2022-08-30 09:10:[address] [facility] POCT GLUCOSE (AUTOMATED) 2022-08-30 08:08:00 Meri Wray Uni versity [facility] POCT GLUCOSE (AUTOMATED) 2022-08-30 07:15:00 Meri Wray Uni versity [facility] POCT GLUCOSE (AUTOMATED) 2022-08-30 06:28:00 Meri Wray Uni versity of [facility] POCT GLUCOSE (AUTOMATED) 2022-08-30 05:04:00 Meri Wray Uni versity of [facility] POCT GLUCOSE (AUTOMATED) 2022-08-30 04:11:00 Meri Wray Uni versity [facility] POCT GLUCOSE (AUTOMATED) 2022-08-30 03:03:00 Oville, Meri Uni versity of [facility] POCT GLUCOSE (AUTOMATED) 2022-08-30 02:21:00 Oville, Meri [facility] POCT GLUCOSE (AUTOMATED) 2022-08-30 01:02:00 Oville, Meri [facility] POCT GLUCOSE (AUTOMATED) 2022-08-30 00:03:00 Oville, Meri Uni versity of [facility] POCT GLUCOSE (AUTOMATED) 2022-08-29 23:00:00 Oville, Meri Uni versity of [facility] POCT GLUCOSE (AUTOMATED) 2022-08-29 22:04:00 Oville, Meri Uni versity of [facility] POCT GLUCOSE (AUTOMATED) 2022-08-29 21:11:00 Oville, Meri Uni versity of [facility] POTASSIUM SERUM 2022-08-29 20:33:00 Ovdean [facility] TRIGLYCERIDES 2022-08-29 20:33:00 Oville [facility] POCT GLUCOSE (AUTOMATED) 2022-08-29 20:07:00 Oville, Meri Uni versity of [facility] POCT GLUCOSE (AUTOMATED) 2022-08-29 19:09:00 Oville, Meri Uni versity of [facility] POCT GLUCOSE (AUTOMATED) 2022-08-29 18:12:00 Oville, Meri Uni versity of [facility] POCT GLUCOSE (AUTOMATED) 2022-08-29 17:08:00 OvilleTawandaMeri [facility] POCT GLUCOSE (AUTOMATED) 2022-08-29 16:14:00 Oville, Meri [facility] POCT GLUCOSE (AUTOMATED) 2022-08-29 15:05:00 Oville, Meri [facility] POCT GLUCOSE (AUTOMATED) 2022-08-29 14:08:00 Oville, Meri [facility] POCT GLUCOSE (AUTOMATED) 2022-08-29 13:18:00 Oville, Meri [facility] POCT GLUCOSE (AUTOMATED) 2022-08-29 12:06:00 Oville, Meri Uni versity of [facility] POCT GLUCOSE (AUTOMATED) 2022-08-29 10:56:00 Meri Wray Uni versity of [facility] TRIGLYCERIDES 2022-08-29 10:53:00 Meri Wray [facility] MAGNESIUM 2022-08-29 10:53:00 Pedro [facility] BASIC METABOLIC PANEL 2022-08-29 10:53:00 Meri Wray [facility] (NA, K, CL, CO2, Medical Branch GLUCOSE, BUN, CREATININE, CA) POCT GLUCOSE (AUTOMATED) 2022-08-29 09:59:00 Meri Wray Uni versity of [facility] POCT GLUCOSE (AUTOMATED) 2022-08-29 09:07:00 Meri Wray Uni versity of [facility] POCT GLUCOSE (AUTOMATED) 2022-08-29 07:55:00 Meri Wray Uni versity of [facility] POCT GLUCOSE (AUTOMATED) 2022-08-29 07:06:00 Meri Wray Uni versity of [facility] POCT GLUCOSE (AUTOMATED) 2022-08-29 06:02:00 Meri Wray Uni versity of [facility] POCT GLUCOSE (AUTOMATED) 2022-08-29 05:09:00 Meri Wray Uni versity of [facility] POCT GLUCOSE (AUTOMATED) 2022-08-29 04:09:00 Meri Wray Uni versity of [facility] POCT GLUCOSE (AUTOMATED) 2022-08-29 03:17:00 Meri Wray Uni versity of [facility] POCT GLUCOSE (AUTOMATED) 2022-08-29 02:11:00 OvParesh morani Uni versity of [facility] POCT GLUCOSE (AUTOMATED) 2022-08-29 01:00:00 Paresh Wrayi Uni versity of [facility] POCT GLUCOSE (AUTOMATED) 2022-08-29 00:13:00 OvParesh morani Uni versity of [facility] POCT GLUCOSE (AUTOMATED) 2022-08-28 23:13:00 OvParesh morani Uni versity of [facility] POCT GLUCOSE (AUTOMATED) 2022-08-28 22:15:00 OvMeri moran Uni versity of [facility] POCT GLUCOSE (AUTOMATED) 2022-08-28 21:04:00 Ovdean Meri Uni versity of [facility] POCT GLUCOSE (AUTOMATED) 2022-08-28 20:03:00 OvParesh morani Uni versity of [facility] POCT GLUCOSE (AUTOMATED) 2022-08-28 19:06:00 OvParesh morani Uni versity of [facility] TRIGLYCERIDES 2022-08-28 18:22:00 Ovdean [facility] BASIC METABOLIC PANEL 2022-08-28 18:22:00 Kamala [facility] (NA, K, CL, CO2, Medical Branch GLUCOSE, BUN, CREATININE, CA) POCT GLUCOSE (AUTOMATED) 2022-08-28 18:13:00 OvMeri moran Uni versity of [facility] POCT GLUCOSE (AUTOMATED) 2022-08-28 17:03:00 OvParesh morani Uni versity of [facility] POCT GLUCOSE (AUTOMATED) 2022-08-28 16:02:00 Ovdean Meri Uni versity of [facility] POCT GLUCOSE (AUTOMATED) 2022-08-28 15:02:00 Ovdean Meri Uni versity of [facility] POCT GLUCOSE (AUTOMATED) 2022-08-28 14:03:00 Ovdean Meri Uni versity of [facility] POCT GLUCOSE (AUTOMATED) 2022-08-28 13:04:00 OvParesh morani Uni versity of [facility] POCT GLUCOSE (AUTOMATED) 2022-08-28 12:30:00 OvParesh morani Uni versity of [facility] POCT GLUCOSE (AUTOMATED) 2022-08-28 11:32:00 Ovdean Meri Uni versity of [facility] POCT GLUCOSE (AUTOMATED) 2022-08-28 10:06:00 Ovdean Meri Uni versity of [facility] TRIGLYCERIDES 2022-08-28 10:00:00 Kamala [facility] BASIC METABOLIC PANEL 2022-08-28 10:00:00 Kamala [facility] (NA, K, CL, CO2, Medical Branch GLUCOSE, BUN, CREATININE, CA) POCT GLUCOSE (AUTOMATED) 2022-08-28 08:59:00 Meri Wray Uni versity of [facility] POCT GLUCOSE (AUTOMATED) 2022-08-28 08:05:00 Meri Wray Uni versity of [facility] POCT GLUCOSE (AUTOMATED) 2022-08-28 05:58:00 Meri Wray Uni versity of [facility] POCT GLUCOSE (AUTOMATED) 2022-08-28 05:03:00 Meri Wray Uni versity of [facility] POCT GLUCOSE (AUTOMATED) 2022-08-28 04:01:00 Meri Wray Uni versity of [facility] POCT GLUCOSE (AUTOMATED) 2022-08-28 03:04:00 Meri Wray Uni versity of [facility] POCT GLUCOSE (AUTOMATED) 2022-08-28 02:02:00 Meri Wray Uni versity of [facility] POCT GLUCOSE (AUTOMATED) 2022-08-28 01:01:00 Meri Wray Uni versity of [facility] POCT GLUCOSE (AUTOMATED) 2022-08-28 00:02:00 Meri Wray Uni versity of [facility] POCT GLUCOSE (AUTOMATED) 2022-08-27 23:34:00 Meri Wray Uni versity of [facility] POCT GLUCOSE (AUTOMATED) 2022-08-27 22:07:00 Meri Wray Uni versity of [facility] BASIC METABOLIC PANEL 2022-08-27 21:28:00 [facility] (NA, K, CL, CO2, Medical Branch GLUCOSE, BUN, CREATININE, CA) POCT GLUCOSE (AUTOMATED) 2022-08-27 21:01:00 Meri Wray Uni versity of [facility] POCT GLUCOSE (AUTOMATED) 2022-08-27 20:17:00 Meri Wray Uni versity of [facility] POCT GLUCOSE (AUTOMATED) 2022-08-27 19:00:00 Meri Wray Uni versity of [facility] POCT GLUCOSE (AUTOMATED) 2022-08-27 18:02:00 Meri Wray Uni versity of [facility] TRIGLYCERIDES 2022-08-27 17:17:00 [facility] 2022-08-27 17:17:00 Meri Wray [facility] (NA, K, CL, CO2, Medical Branch GLUCOSE, BUN, CREATININE, CA) POCT GLUCOSE (AUTOMATED) 2022-08-27 16:59:00 OvMeri moran Uni versity of [facility] POCT GLUCOSE (AUTOMATED) 2022-08-27 16:12:00 OvMeri moran Uni versity of [facility] POCT GLUCOSE (AUTOMATED) 2022-08-27 15:13:00 OvMeri moran Uni versity of [facility] POCT GLUCOSE (AUTOMATED) 2022-08-27 14:19:00 Meri Wray Uni versity of [facility] POCT GLUCOSE (AUTOMATED) 2022-08-27 13:23:00 OvMeri moran Uni versity of [facility] POCT GLUCOSE (AUTOMATED) 2022-08-27 12:05:00 OvMeri moran Uni versity of [facility] POCT GLUCOSE (AUTOMATED) 2022-08-27 11:06:00 Meri Wray Uni versity of [facility] POCT GLUCOSE (AUTOMATED) 2022-08-27 10:14:00 Meri Wray Uni versity of [facility] POCT GLUCOSE (AUTOMATED) 2022-08-27 09:04:00 Meri Wray Uni versity of [facility] TRIGLYCERIDES 2022-08-27 08:14:00 Meri Wray [facility] BASIC METABOLIC PANEL 2022-08-27 08:14:00 Meri Wray [facility] (NA, K, CL, CO2, Medical Branch GLUCOSE, BUN, CREATININE, CA) POCT GLUCOSE (AUTOMATED) 2022-08-27 06:58:00 OvMeri moran Uni versity of [facility] POCT GLUCOSE (AUTOMATED) 2022-08-27 06:11:00 OvMeri moran Uni versity of [facility] POCT GLUCOSE (AUTOMATED) 2022-08-27 05:11:00 Meri Wray [facility] POCT GLUCOSE (AUTOMATED) 2022-08-27 03:13:00 Meri Wray [facility] LIPASE 2022-08-27 02:32:00 Allen Rivera o f [facility] BASIC METABOLIC PANEL 2022-08-27 02:32:00 Kamala [facility] (NA, K, CL, CO2, Medical Branch GLUCOSE, BUN, CREATININE, CA) MRSA / MSSA SCREEN BY 2022-08-27 02:32:00 [facility] POCT GLUCOSE (AUTOMATED) 2022-08-27 02:00:00 Meri Wray [facility] POCT GLUCOSE (AUTOMATED) 2022-08-27 01:14[facility]00 [facility] 2022-08-27 00:14:00 Meri Wray [facility] POCT GLUCOSE (AUTOMATED) 2022-08-26 23:51:00 Meri Wray [facility] POCT GLUCOSE (AUTOMATED) 2022-08-26 23:06:00 [facility]INE 2022-08-26 22:57:00 Robert Lutz [facility] URINALYSIS 2022-08-26 22:57:00 Robert Lutz [facility] POCT GLUCOSE (AUTOMATED) 2022-08-26 22:08:00 Robert Lutz [facility] ABG+COOX+NA+K+GLU+CA2+ 2022-08-26 21:16:00 Robert Lutz [facility] MAGNESIUM 2022-08-26 21:11:00 Robert Lutz [facility] OSMOLALITY, SERUM OR 2022-08-26 21:11:00 Robert Lutz [facility] PLASMA [facility] COMP. METABOLIC PANEL 2022-08-26 21:11:00 Robert Lutz [facility] ([id number]) Medical Branch LIPID PANEL 2022-08-26 21:11:00 Robert Lutz [facility] ([id number])(TOTAL Medical Branch CHOLESTEROL, TRIGLYCERIDES, HDL) CBC WITH DIFF 2022-08-26 21:11:00 Robert Lutz [facility] LOW-DENSITY LIPOPROTEIN, 2022-08-26 21:11:00 Robert Lutz Un [facility] HB ECG ROUTINE & RHYTHM 2022-08-26 20:34:00 Guido Rucker [facility] STRIP [facility] POCT GLUCOSE (AUTOMATED) 2022-08-26 20:33:00 Doctor Unassigned, No [facility] Name [facility] CONSENT/REFUSAL FOR 2022-08-26 20:18:28 Doctor Unassigned, No Un [facility] DIAGNOSIS AND TREATMENT Name [facility] POCT GLUCOSE (AUTOMATED) 2022-06-22 03:40:00 Katelyn Ivey [facility] BASIC METABOLIC PANEL 2022-06-22 02:40:00 Katelyn Ivey [facility] (NA, K, CL, CO2, Medical Branch GLUCOSE, BUN, CREATININE, CA) POCT GLUCOSE(AGE 2022-06-22 02:39:00 Katelyn Ivey [facility] >30DAYS) [facility] POCT GLUCOSE (AUTOMATED) 2022-06-22 02:38:00 Katelyn Ivey [facility] VBG+VCOOX+NA+K+GLU+CA2+ 2022-06-22 02:08:00 Katelyn Ivey [facility] POCT GLUCOSE (AUTOMATED) 2022-06-22 01:41:00 Katelyn Ivey [facility] XR CHEST 2 VW 2022-06-22 00:47:37 Katelyn Ivey [facility] PHOSPHORUS 2022-06-21 23:49:00 Katelyn Ivey [facility] MAGNESIUM 2022-06-21 23:49:00 Katelyn Ivey [facility] TROPONIN I 2022-06-21 23:49:[address] [facility] BASIC METABOLIC PANEL 2022-06-21 23:49:00 Katelyn Ivey [facility] (NA, K, CL, CO2, Medical Branch GLUCOSE, BUN, CREATININE, CA) CBC WITH DIFF 2022-06-21 23:49:00 Katelyn Ivey [facility] GLYCOSYLATED HEMOGLOBIN 2022-06-21 23:49:00 Katelyn Ivey [facility] (A1C) Medical Branch URINALYSIS 2022-06-21 23:49:00 Katelyn Ivey [facility] RAPID STREP SCREEN FOR 2022-06-21 23:49:00 Katelyn Ivey [facility] GROUP A [facility] RAPID INFLUENZA A/B 2022-06-21 23:49:00 Katelyn Ivey [facility] N-TERMINAL PRO-BNP 2022-06-21 23:49:00 Katelyn Ivey [facility] COVID-19 (ID NOW RAPID 2022-06-21 23:49:00 Katelyn Ivey [facility] TESTING) [facility] CONSENT/REFUSAL FOR 2022-06-21 23:19:40 Doctor Unassigned, No Un [facility] DIAGNOSIS AND TREATMENT Name [facility] POCT GLUCOSE (AUTOMATED) 2021-10-17 01:49:00 [facility](AGE 2021-10-17 00:41:00 Beatriz Eduardo [facility] >30DAYS) [facility] POCT GLUCOSE (AUTOMATED) 2021-10-17 00:40:00 [facility] 2021-10-16 23:26:00 Beatriz Eduardo [facility] BLOOD CULTURE SCREEN 2021-10-16 23:03:00 Beatriz Eduardo [facility] TROPONIN I 2021-10-16 23:03:00 Beatriz Eduardo [facility] COMP. METABOLIC PANEL 2021-10-16 23:03:00 Beatriz Eduardo [facility] ([id number]) Medical Branch CBC WITH DIFF 2021-10-16 23:03:00 Beatrzi Eduardo [facility] URINALYSIS 2021-10-16 23:03:00 Beatriz Eduardo [facility] N-TERMINAL PRO-BNP 2021-10-16 23:03:00 Beatriz Eduardo [facility] LACTIC ACID WHOLE BLOOD 2021-10-16 23:01:00 Beatriz Eduardo [facility] CT ABDOMEN PELVIS WO 2021-10-16 22:40:13 Beatriz Eduardo [facility] POCT TEST 2021-10-16 22:34:00 Beatriz Eduardo [facility] CONSENT/REFUSAL FOR 2021-10-16 21:34:04 Doctor Unassigned, No [facility] Name [facility] CT ABDOMEN PELVIS WO 2021-09-22 15:59:44 Singer [facility] POCT TEST 2021-09-22 15:18:00 Jn Miller [facility] COMP. METABOLIC PANEL 2021-09-22 15:16[id number] [facility] CBC WITH DIFF 2021-09-22 15:16:00 Miller, [facility] URINALYSIS 2021-09-22 [facility]:58[facility] 2021-09-22 14:47:03 [facility] POCT GLUCOSE (AUTOMATED) 2021-06-18 13:04:00 [facility] 2021-06-18 12:58:31 Fozia Jang [facility] POCT TEST 2021-06-18 11:06:00 Fozia Jang [facility] CREATINE KINASE 2021-06-18 10:50:00 [facility] COMP. METABOLIC PANEL 2021-06-18 10:50:00 Fozia Jang [facility] ([id number]) Medical Branch CBC WITH DIFF 2021-06-18 10:50:00 Fozia Jang [facility] URINALYSIS 2021-06-18 10:50:00 Fozia Jang [facility] RAPID INFLUENZA A/B 2021-06-18 10:50:00 Fozia Jang [facility] COVID-19 (ID NOW RAPID 2021-06-18 10:50:00 Fozia Jang [facility] TESTING) Medical Branch NOTICE OF PRIVACY 2021-06-18 10:24:00 Doctor Unassigned, No [facility] PRACTICES Name [facility] CONSENT/REFUSAL FOR 2021-06-18 10:21:45 Doctor Unassigned, [facility] [place] [facility] Name [facility] CT ABDOMEN PELVIS W 2021-05-30 23:52:43 [facility] CONTRAST [facility] CT HEAD WO CONTRAST 2021-05-30 23:52:13 Mary Jay [facility] XR CHEST 1 VW 2021-05-30 22:38:06 [facility] [place] [facility] XR HAND 3+ VW LEFT 2021-05-30 22:38:06 Mary Jay [facility] XR FOREARM 2 VW LEFT 2021-05-30 22:28:08 Mary Jay [facility] CONSENT/REFUSAL FOR 2021-05-30 21:39:04 Doctor Unassigned, No [facility] [place] [facility] AND TREATMENT Name [facility] [id number] Ecg Routine Ecg 2015-12-20 00:00:00 W/least 12 Lds W/i r 83.71 2010-08-05 00:00:00 [facility] 77.98 2010-08-05 00:00:00 [facility] Plan of Care Planned Activity Planned Date Details Comments Source Future Scheduled 2023-02-09 [facility] Test 10:57:52 malignant neoplasm of colon (procedure) [code = 005947977] Future Scheduled 2023-02-09 Scre[facility] Test 10:57:52 malignant neoplasm of colon (procedure) [code = 651827362] Future Scheduled 2023-02-09 [facility] Test 10:57:52 malignant neoplasm of colon (procedure) [code = 545768068] Future Scheduled 2023-02-09 [facility] [facility] 10:57:52 (#1) [code = COVID-19 VACCINE (#1)] Future Scheduled 2023-02-09 [facility] 10:57:52 screening (procedure) [code = 045925126] Future Scheduled 2023-02-09 [facility] Test 10:57:52 malignant neoplasm of cervix (procedure) [code = 941223220] Future Scheduled 2023-02-09 BREAST CANCER [facility] Test 10:57:52 SCREENING [code = BREAST CANCER SCREENING] Future Scheduled 2023-02-09 [facility] Test 10:57:52 malignant neoplasm of colon (procedure) [code = 154583741] Future Scheduled 2023-02-09 [facility] Test 10:57:52 malignant neoplasm of colon (procedure) [code = 594164987] Future Scheduled 2023-02-09 [facility]52 [code = INFLUENZA VACCINE] Future Scheduled 2023-02-09 [facility] Test 10:57:52 malignant neoplasm of colon (procedure) [code = 677098683] Future Scheduled 2023-02-09 [facility] Test 10:57:52 malignant neoplasm of colon (procedure) [code = 281856982] Future Scheduled 2023-02-09 [facility] Test 10:57:52 malignant neoplasm of colon (procedure) [code = 102235599] Future Scheduled 2023-02-09 [facility] [facility] [facility] Test 10:57:52 (#1) [code = COVID-19 VACCINE (#1)] Future Scheduled 2023-02-09 [facility] 10:57:52 screening (procedure) [code = 494662210] Future Scheduled 2023-02-09 [facility] Test 10:57:52 malignant neoplasm of cervix (procedure) [code = 280398010] Future Scheduled 2023-02-09 BREAST CANCER [facility] Test 10:57:52 SCREENING [code = BREAST CANCER SCREENING] Future Scheduled 2023-02-09 [facility] Test 10:57:52 malignant neoplasm of colon (procedure) [code = 661461764] Future Scheduled 2023-02-09 [facility] Test 10:57:52 malignant neoplasm of colon (procedure) [code = 103193011] Future Scheduled 2023-02-09 [facility]:57:52 [code = INFLUENZA VACCINE] Future Scheduled 2023-02-09 [facility] Test 10:57:52 malignant neoplasm of colon (procedure) [code = 860126622] Future Scheduled 2023-02-09 [facility] Test 10:57:52 malignant neoplasm of colon (procedure) [code = 900593447] Future Scheduled 2023-02-09 [facility] Test 10:57:52 malignant neoplasm of colon (procedure) [code = 132341187] Future Scheduled 2023-02-09 [facility]-[address] [facility] 10:57:52 (#1) [code = COVID-19 VACCINE (#1)] Future Scheduled 2023-02-09 [facility] 10:57:52 screening (procedure) [code = 838167205] Future Scheduled 2023-02-09 [facility] Test 10:57:52 malignant neoplasm of cervix (procedure) [code = 419094564] Future Scheduled 2023-02-09 BREAST CANCER [facility] Test 10:57:52 SCREENING [code = BREAST CANCER SCREENING] Future Scheduled 2023-02-09 [facility] Test 10:57:52 malignant neoplasm of colon (procedure) [code = 900467614] Future Scheduled 2023-02-09 [facility] Test 10:57:52 malignant neoplasm of colon (procedure) [code = 575767503] Future Scheduled 2023-02-09 [facility]:57:52 [code = INFLUENZA VACCINE] Future Scheduled 2023-02-09 [facility] Test 10:57:52 malignant neoplasm of colon (procedure) [code = 903693549] Future Scheduled 2023-02-09 [facility] Test 10:57:52 malignant neoplasm of colon (procedure) [code = 771101574] Future Scheduled 2023-02-09 [facility] Test 10:57:52 malignant neoplasm of colon (procedure) [code = 180726760] Future Scheduled 2023-02-09 COVID-[address] [facility] 10:57:52 (#1) [code = COVID-19 VACCINE (#1)] Future Scheduled 2023-02-09 [facility] 10:57:52 screening (procedure) [code = 202564144] Future Scheduled 2023-02-09 [facility] Test 10:57:52 malignant neoplasm of cervix (procedure) [code = 423276563] Future Scheduled 2023-02-09 BREAST CANCER [facility] Test 10:57:52 SCREENING [code = BREAST CANCER SCREENING] Future Scheduled 2023-02-09 [facility] Test 10:57:52 malignant neoplasm of colon (procedure) [code = 417379346] Future Scheduled 2023-02-09 [facility] Test 10:57:52 malignant neoplasm of colon (procedure) [code = 059575608] Future Scheduled 2023-02-09 [facility]:57:52 [code = INFLUENZA VACCINE] Future Scheduled 2023-02-09 [facility] Test 10:57:52 malignant neoplasm of colon (procedure) [code = 413892517] Future Scheduled 2023-02-09 [facility] Test 10:57:52 malignant neoplasm of colon (procedure) [code = 030826284] Future Scheduled 2023-02-09 [facility] Test 10:57:52 malignant neoplasm of colon (procedure) [code = 882183760] Future Scheduled 2023-02-09 COVID-[address] [facility] 10:57:52 (#1) [code = COVID-19 VACCINE (#1)] Future Scheduled 2023-02-09 [facility] 10:57:52 screening (procedure) [code = 429350904] Future Scheduled 2023-02-09 [facility] Test 10:57:52 malignant neoplasm of cervix (procedure) [code = 296489783] Future Scheduled 2023-02-09 BREAST CANCER [facility] Test 10:57:52 SCREENING [code = BREAST CANCER SCREENING] Future Scheduled 2023-02-09 [facility] Test 10:57:52 malignant neoplasm of colon (procedure) [code = 047189177] Future Scheduled 2023-02-09 [facility] Test 10:57:52 malignant neoplasm of colon (procedure) [code = 903296243] Future Scheduled 2023-02-09 [facility]:57:52 [code = INFLUENZA VACCINE] Future Scheduled 2022-12-21 [facility] 13[facility]47:21 (#1) [code = COVID-19 VACCINE (#1)] Future Scheduled 2022-12-21 [facility] 13:47:21 screening (procedure) [code = 782303477] Future Scheduled 2022-12-21 [facility] Test 13:47:21 malignant neoplasm of cervix (procedure) [code = 769728573] Future Scheduled 2022-12-21 BREAST CANCER [facility] Test 13:47:21 SCREENING [code = BREAST CANCER SCREENING] Future Scheduled 2022-12-21 [facility]:47:21 [code = INFLUENZA VACCINE] Future Scheduled 2022-10-29 [facility]:19 (#1) [code = COVID-19 VACCINE (#1)] Future Scheduled 2022-10-29 [facility] 14:01:19 screening (procedure) [code = 662266518] Future Scheduled 2022-10-29 [facility] Test 14:01:19 malignant neoplasm of cervix (procedure) [code = 508718992] Future Scheduled 2022-10-29 BRE[facility] Test 14:01:19 SCREENING [code = BREAST CANCER SCREENING] Future Scheduled 2022-10-29 [facility] 14:01:19 [code = INFLUENZA VACCINE] Future Scheduled 2022-10-29 [facility]:01:19 (#1) [code = COVID-19 VACCINE (#1)] Future Scheduled 2022-10-29 [facility] 14:01:19 screening (procedure) [code = 744587585] Future Scheduled 2022-10-29 [facility] Test 14:01:19 malignant neoplasm of cervix (procedure) [code = 594250175] Future Scheduled 2022-10-29 BREAST CANCER [facility] Test 14:01:19 SCREENING [code = BREAST CANCER SCREENING] Future Scheduled 2022-10-29 [facility] 14:01:19 [code = INFLUENZA VACCINE] Future Scheduled 2022-06-30 [facility] 13:24:39 (#1) [code = COVID-19 VACCINE (#1)] Future Scheduled 2022-06-30 [facility] 13:24:39 screening (procedure) [code = 940041183] Future Scheduled 2022-06-30 [facility] Test 13:24:39 malignant neoplasm of cervix (procedure) [code = 303976870] Future Scheduled 2022-06-30 BRE[facility] CAN[facility]ER [facility] Test 13:24:39 SCREENING [code = BREAST CANCER SCREENING] Future Scheduled 2022-06-30 [facility] 13:24:39 [code = INFLUENZA VACCINE] Future Scheduled 2022-06-30 [facility] 13:24:39 (#1) [code = COVID-19 VACCINE (#1)] Future Scheduled 2022-06-30 [facility] 13:24:39 screening (procedure) [code = 532314934] Future Scheduled 2022-06-30 [facility] Test 13:24:39 malignant neoplasm of cervix (procedure) [code = 162836552] Future Scheduled 2022-06-30 BREAST CANCER [facility] Test 13:24:39 SCREENING [code = BREAST CANCER SCREENING] Future Scheduled 2022-06-30 [facility] 13:24:39 [code = INFLUENZA VACCINE] Future Scheduled 2022-06-30 [facility] 13:24:39 (#1) [code = COVID-19 VACCINE (#1)] Future Scheduled 2022-06-30 [facility] 13:24:39 screening (procedure) [code = 260490687] Future Scheduled 2022-06-30 [facility] Test 13:24:39 malignant neoplasm of cervix (procedure) [code = 802979944] Future Scheduled 2022-06-30 BRE[facility] CANCER [facility] Test 13:24:39 SCREENING [code = BREAST CANCER SCREENING] Future Scheduled 2022-06-30 INFLUENZA VACCINE Method [facility] Test 13:24:39 [code = INFLUENZA VACCINE] Future Scheduled 2022-05-12 [facility] 14:10:29 VACCINES (1 of 3 - 3-dose series) [code = HEPATITIS B VACCINES (1 of 3 - 3-dose series)] Future Scheduled 2022-05-12 COVID-19 VACCINE [facility] Test 14:10:29 (#1) [code = COVID-19 VACCINE (#1)] Future Scheduled 2022-05-12 [facility] 14:10:29 screening (procedure) [code = 910890695] Future Scheduled 2022-05-12 Screening for [facility] Test 14:10:29 malignant neoplasm of cervix (procedure) [code = 146087048] Future Scheduled 2022-05-12 BREAST CANCER [facility] Test 14:10:29 SCREENING [code = BREAST CANCER SCREENING] Future Scheduled 2022-05-12 INFLUENZA VACCINE Method [facility] Test 14:10:29 [code = INFLUENZA VACCINE] Future Scheduled 2022-05-12 [facility] 14:10:29 VACCINES (1 of 3 - 3-dose series) [code = HEPATITIS B VACCINES (1 of 3 - 3-dose series)] Future Scheduled 2022-05-12 COVID-19 VACCINE [facility] Test 14:10:29 (#1) [code = COVID-19 VACCINE (#1)] Future Scheduled 2022-05-12 [facility] 14:10:29 screening (procedure) [code = 830674854] Future Scheduled 2022-05-12 Screening for [facility] Test 14:10:29 malignant neoplasm of cervix (procedure) [code = 029535820] Future Scheduled 2022-05-12 BREAST CANCER [facility] Test 14:10:29 SCREENING [code = BREAST CANCER SCREENING] Future Scheduled 2022-05-12 INFLUENZA VACCINE [facility] Test 14:10:29 [code = INFLUENZA VACCINE] Future Scheduled 2022-05-12 [facility] 14:10:29 VACCINES (1 of 3 - 3-dose series) [code = HEPATITIS B VACCINES (1 of 3 - 3-dose series)] Future Scheduled 2022-05-12 COVID-19 VACCINE [facility] Test 14:10:29 (#1) [code = COVID-19 VACCINE (#1)] Future Scheduled 2022-05-12 [facility] 14:10:29 screening (procedure) [code = 602578264] Future Scheduled 2022-05-12 [facility] Test 14:10:29 malignant neoplasm of cervix (procedure) [code = 502467951] Future Scheduled 2022-05-12 BRE[facility] CANCER [facility] Test 14:10:29 SCREENING [code = BREAST CANCER SCREENING] Future Scheduled 2022-05-12 [facility] 14:10:29 [code = INFLUENZA VACCINE] Future Scheduled 2022-05-12 [facility] 14:10:29 VACCINES (1 of 3 - 3-dose series) [code = HEPATITIS B VACCINES (1 of 3 - 3-dose series)] Future [facility]uled 2022-05-12 [facility] (#[facility] [code = COVID-19 VACCINE (#1)] Future Scheduled 2022-05-12 [facility] 14:10:29 screening (procedure) [code = 365732349] Future Scheduled 2022-05-12 [facility] Test 14:10:29 malignant neoplasm of cervix (procedure) [code = 154188145] Future Scheduled 2022-05-12 BREAST CANCER [facility] Test 14:10:29 SCREENING [code = BREAST CANCER SCREENING] Future Scheduled 2022-05-12 [facility] 14:10:29 [code = INFLUENZA VACCINE] Future Scheduled 2022-04-12 [facility] 08:53:27 screening (procedure) [code = 707938280] Future Scheduled 2022-04-12 [facility] Test 08:53:27 malignant neoplasm of cervix (procedure) [code = 145460645] Future Scheduled 2022-04-12 BREAST CANCER [facility] Test 08:53:27 SCREENING [code = BREAST CANCER SCREENING] Future Scheduled 2022-04-12 [facility] 08:53:27 [code = INFLUENZA VACCINE] Future Scheduled 2022-04-12 [facility] 08:53:27 VACCINES (1 of 3 - 3-dose series) [code = HEPATITIS B VACCINES (1 of 3 - 3-dose series)] Future Scheduled 2022-04-12 [facility] 08[facility]27 (#1) [code = COVID-19 VACCINE (#1)] Future Scheduled 2022-03-16 [facility] 11:35:00 VACCINES (1 of 3 - 3-dose series) [code = HEPATITIS B VACCINES (1 of 3 - 3-dose series)] Future Scheduled 2022-03-16 COVID-19 VACCINE [facility] Test 11:35:00 (#1) [code = COVID-19 VACCINE (#1)] Future Scheduled 2022-03-16 [facility] 11:35:00 screening (procedure) [code = 749148011] Future Scheduled 2022-03-16 Screening for [facility] Test 11:35:00 malignant neoplasm of cervix (procedure) [code = 550406772] Future Scheduled 2022-03-16 BRE[facility] Test 11:35:00 SCREENING [code = BREAST CANCER SCREENING] Future Scheduled 2022-03-16 INFLUENZA VACCINE [facility] Test 11:35:00 [code = INFLUENZA VACCINE] Future Scheduled 2022-03-16 [facility] 11:35:00 VACCINES (1 of 3 - 3-dose series) [code = HEPATITIS B VACCINES (1 of 3 - 3-dose series)] Future Scheduled 2022-03-16 [facility] (#1) [code = COVID-19 VACCINE (#1)] Future Scheduled 2022-03-16 [facility] 11:35:00 screening (procedure) [code = 898017528] Future Scheduled 2022-03-16 [facility] Test 11:35:00 malignant neoplasm of cervix (procedure) [code = 878177997] Future Scheduled 2022-03-16 BRE[facility] Test 11:35:00 SCREENING [code = BREAST CANCER SCREENING] Future Scheduled 2022-03-16 INFLUENZA VACCINE [facility] Test 11:35:00 [code = INFLUENZA VACCINE] Future Scheduled 2022-03-09 [facility] 12:08:14 VACCINES (1 of 3 - 3-dose series) [code = HEPATITIS B VACCINES (1 of 3 - 3-dose series)] Future Scheduled 2022-03-09 COVID-19 VACCINE [facility] Test 12:08:14 (#1) [code = COVID-19 VACCINE (#1)] Future Scheduled 2022-03-09 [facility] 12:08:14 screening (procedure) [code = 282122888] Future Scheduled 2022-03-09 Screening for [facility] Test 12:08:14 malignant neoplasm of cervix (procedure) [code = 289916654] Future Scheduled 2022-03-09 BREAST CANCER [facility] Test 12:08:14 SCREENING [code = BREAST CANCER SCREENING] Future Scheduled 2022-03-09 INFLUENZA VACCINE Method [facility] Test 12:08:14 [code = INFLUENZA VACCINE] Future Scheduled 2022-03-09 [facility] 12:08:14 VACCINES (1 of 3 - 3-dose series) [code = HEPATITIS B VACCINES (1 of 3 - 3-dose series)] Future Scheduled 2022-03-09 COVID-19 VACCINE [facility] Test 12:08:14 (#1) [code = COVID-19 VACCINE (#1)] Future Scheduled 2022-03-09 [facility] 12:08:14 screening (procedure) [code = 216567106] Future Scheduled 2022-03-09 Screening for [facility] Test 12:08:14 malignant neoplasm of cervix (procedure) [code = 687563175] Future Scheduled 2022-03-09 BREAST CANCER [facility] Test 12:08:14 SCREENING [code = BREAST CANCER SCREENING] Future Scheduled 2022-03-09 INFLUENZA VACCINE [facility] Test 12:08:14 [code = INFLUENZA VACCINE] Future Scheduled 2022-03-09 [facility] 12:08:14 VACCINES (1 of 3 - 3-dose series) [code = HEPATITIS B VACCINES (1 of 3 - 3-dose series)] Future Scheduled 2022-03-09 [facility] 12:08:14 (#1) [code = COVID-19 VACCINE (#1)] Future Scheduled 2022-03-09 [facility] 12:08:14 screening (procedure) [code = 939581880] Future Scheduled 2022-03-09 [facility] 12:08:14 malignant neoplasm of cervix (procedure) [code = 963159961] Future Scheduled 2022-03-09 [facility] Test 12:08:14 SCREENING [code = BREAST CANCER SCREENING] Future Scheduled 2022-03-09 [facility] 12:08:14 [code = INFLUENZA VACCINE] Goal Plan of Care Note [code = 49333-4] Goal Plan of Care Note [code = 63020-8] Goal Plan of Care Note [code = 61555-8] Goal Plan of Care Note [code = 73614-4] Goal Plan of Care Note [code = 54805-9] Goal Plan of Care Note [code = 64702-2] Goal Plan of Care Note [code = 73836-6] Goal Plan of Care Note [code = 32015-7] Goal Plan of Care Note [code = 59041-5] Goal Plan of Care Note [code = 12699-8] Goal Plan of Care Note [code = 56406-8] Goal Plan of Care Note [code = 10489-7] Goal Plan of Care Note [code = 79850-7] Goal Plan of Care Note [code = 73009-8] Goal Plan of Care Note [code = 12286-8] Goal Plan of Care Note [code = 75829-0] Goal Plan of Care Note [code = 24599-1] Goal Plan of Care Note [code = 22846-4] Goal Plan of Care Note [code = 12587-2] Goal Plan of Care Note [code = 54193-2] Goal Plan of Care Note [code = 76078-0] Goal Plan of Care Note [code = 89532-7] Goal Plan of Care Note [code = 79870-2] Goal Plan of Care Note [code = 52690-3] Goal Plan of Care Note [code = 15894-3] Goal Plan of Care Note [code = 57704-6] Goal Plan of Care Note [code = 05677-7] Goal Plan of Care Note [code = 88473-1] Goal Plan of Care Note [code = 08533-0] Goal Plan of Care Note [code = 26502-7] Goal Plan of Care Note [code = 90651-8] Goal Plan of Care Note [code = 20920-7] Goal Plan of Care Note [code = 47881-7] Goal Plan of Care Note [code = 84508-1] Goal Plan of Care Note [code = 35207-1] Goal Plan of Care Note [code = 68572-5] Goal Plan of Care Note [code = 13855-6] Goal Plan of Care Note [code = 72360-6] Goal Plan of Care Note [code = 02465-2] Goal Plan of Care Note [code = 17214-5] Goal Plan of Care Note [code = 93407-0] Goal Plan of Care Note [code = 45368-6] Goal Plan of Care Note [code = 09954-7] Goal Plan of Care Note [code = 12911-6] Goal Plan of Care Note [code = 23282-4] Goal Plan of Care Note [code = 89708-7] Goal Plan of Care Note [code = 13129-6] Goal Plan of Care Note [code = 00895-4] Goal Plan of Care Note [code = 76632-8] Goal Plan of Care Note [code = 44832-9] Goal Plan of Care Note [code = 81336-0] Goal Plan of Care Note [code = 81925-5] Goal Plan of Care Note [code = 81892-3] Goal Plan of Care Note [code = 18967-4] Goal Plan of Care Note [code = 85477-6] Goal Plan of Care Note [code = 85991-8] Goal Plan of Care Note [code = 06553-4] Goal Plan of Care Note [code = 56854-6] Goal Plan of Care Note [code = 99258-7] Goal Plan of Care Note [code = 80110-6] Goal Plan of Care Note [code = 63329-6] Goal Plan of Care Note [code = 29211-2] Goal Plan of Care Note [code = 53982-4] Goal Plan of Care Note [code = 76759-8] Goal Plan of Care Note [code = 02234-3] Goal Plan of Care Note [code = 48681-5] Goal Plan of Care Note [code = 84695-7] Goal Plan of Care Note [code = 40708-1] Goal Plan of Care Note [code = 55443-1] Goal Plan of Care Note [code = 47142-9] Goal Plan of Care Note [code = 35015-4] Goal Plan of Care Note [code = 84619-5] Goal Plan of Care Note [code = 91282-6] Goal Plan of Care Note [code = 51604-2] Goal Plan of Care Note [code = 29183-0] Goal Plan of Care Note [code = 97948-7] Goal Plan of Care Note [code = 83065-3] Goal Plan of Care Note [code = 63463-5] Goal Plan of Care Note [code = 27522-9] Goal Plan of Care Note [code = 59089-3] Goal Plan of Care Note [code = 06138-2] Goal Plan of Care Note [code = 29277-3] Goal Plan of Care Note [code = 29430-0] Goal Plan of Care Note [code = 65963-9] Goal Plan of Care Note [code = 43774-4] Goal Plan of Care Note [code = 50055-5] Goal Plan of Care Note [code = 57271-8] Goal Plan of Care Note [code = 67848-6] Goal Plan of Care Note [code = 88469-8] Goal Plan of Care Note [code = 92001-3] Goal Plan of Care Note [code = 92846-0] Goal Plan of Care Note [code = 78218-6] Goal Plan of Care Note [code = 91568-3] Goal Plan of Care Note [code = 34331-6] Goal Plan of Care Note [code = 44411-6] Goal Plan of Care Note [code = 80621-1] Goal Plan of Care Note [code = 65619-8] Goal Plan of Care Note [code = 77538-5] Goal Plan of Care Note [code = 15795-2] Goal Plan of Care Note [code = 37786-5] Goal Plan of Care Note [code = 71501-4] Goal Plan of Care Note [code = 75297-3] Goal Plan of Care Note [code = 05024-1] Goal Plan of Care Note [code = 60905-4] Goal Plan of Care Note [code = 33262-1] Goal Plan of Care Note [code = 19718-5] Goal Plan of Care Note [code = 93245-5] Goal Plan of Care Note [code = 30327-0] Goal Plan of Care Note [code = 81125-8] Goal Plan of Care Note [code = 89468-4] Goal Plan of Care Note [code = 89754-0] Goal Plan of Care Note [code = 85120-8] Goal Plan of Care Note [code = 70769-3] Goal Plan of Care Note [code = 87808-7] Goal Plan of Care Note [code = 17446-7] Goal Plan of Care Note [code = 30917-2] Goal Plan of Care Note [code = 27861-5] Goal Plan of Care Note [code = 19085-7] Goal Plan of Care Note [code = 46122-9] Goal Plan of Care Note [code = 66807-5] Goal Plan of Care Note [code = 87716-0] Goal Plan of Care Note [code = 66837-6] Goal Plan of Care Note [code = 72139-4] Goal Plan of Care Note [code = 18689-0] Goal Plan of Care Note [code = 08489-0] Goal Plan of Care Note [code = 12396-0] Goal Plan of Care Note [code = 87713-1] Goal Plan of Care Note [code = 10766-0] Goal Plan of Care Note [code = 59216-8] Goal Plan of Care Note [code = 12088-9] Goal Plan of Care Note [code = 80456-7] Goal Plan of Care Note [code = 26605-7] Goal Plan of Care Note [code = 54677-6] Goal Plan of Care Note [code = 96081-7] Goal Plan of Care Note [code = 96870-6] Goal Plan of Care Note [code = 17181-1] Goal Plan of Care Note [code = 91790-4] Goal Plan of Care Note [code = 00310-7] Goal Plan of Care Note [code = 18751-9] Goal Plan of Care Note [code = 40582-0] Goal Plan of Care Note [code = 76890-6] Goal Plan of Care Note [code = 92816-6] Goal Plan of Care Note [code = 86927-3] Goal Plan of Care Note [code = 92294-6] Goal Plan of Care Note [code = 54608-4] Goal Plan of Care Note [code = 13333-8] Goal Plan of Care Note [code = 23187-8] Goal Plan of Care Note [code = 66551-7] Goal Plan of Care Note [code = 19100-3] Goal Plan of Care Note [code = 38987-8] Goal Plan of Care Note [code = 62754-1] Goal Plan of Care Note [code = 46036-4] Goal Plan of Care Note [code = 12658-6] Goal Plan of Care Note [code = 17233-7] Goal Plan of Care Note [code = 38989-0] Goal Plan of Care Note [code = 27260-5] Goal Plan of Care Note [code = 56301-5] Goal Plan of Care Note [code = 99411-4] Goal Plan of Care Note [code = 18234-8] Goal Plan of Care Note [code = 67180-6] Goal Plan of Care Note [code = 62348-5] Goal Plan of Care Note [code = 43611-8] Goal Plan of Care Note [code = 68998-5] Goal Plan of Care Note [code = 14192-5] Goal Plan of Care Note [code = 19962-6] Goal Plan of Care Note [code = 95746-5] Goal Plan of Care Note [code = 06908-1] Goal Plan of Care Note [code = 39314-5] Goal Plan of Care Note [code = 23956-7] Goal Plan of Care Note [code = 53877-9] Goal Plan of Care Note [code = 10235-9] Goal Plan of Care Note [code = 55956-4] Goal Plan of Care Note [code = 64847-7] Goal Plan of Care Note [code = 96993-7] Goal Plan of Care Note [code = 84561-8] Goal Plan of Care Note [code = 30110-3] Goal Plan of Care Note [code = 50473-5] Goal Plan of Care Note [code = 40868-5] Goal Plan of Care Note [code = 79703-1] Goal Plan of Care Note [code = 17677-5] Goal Plan of Care Note [code = 45311-2] Goal Plan of Care Note [code = 45257-4] Goal Plan of Care Note [code = 91309-6] Goal Plan of Care Note [code = 47937-4] Goal Plan of Care Note [code = 24791-7] Goal Plan of Care Note [code = 59971-6] Goal Plan of Care Note [code = 91884-6] Goal Plan of Care Note [code = 74775-3] Goal Plan of Care Note [code = 13238-7] Goal Plan of Care Note [code = 70185-8] Goal Plan of Care Note [code = 87708-7] Goal Plan of Care Note [code = 50622-2] Goal Plan of Care Note [code = 23315-7] Goal Plan of Care Note [code = 73662-0] Goal Plan of Care Note [code = 24997-3] Goal Plan of Care Note [code = 78248-1] Goal Plan of Care Note [code = 96493-4] Goal Plan of Care Note [code = 97751-9] Goal Plan of Care Note [code = 09137-7] Goal Plan of Care Note [code = 52656-3] Goal Plan of Care Note [code = 58259-3] Goal Plan of Care Note [code = 34539-5] Goal Plan of Care Note [code = 42409-7] Goal Plan of Care Note [code = 94330-9] Goal Plan of Care Note [code = 68006-1] Goal Plan of Care Note [code = 29475-4] Goal Plan of Care Note [code = 85839-6] Goal Plan of Care Note [code = 96631-1] Goal Plan of Care Note [code = 62414-3] Goal Plan of Care Note [code = 72719-9] Goal Plan of Care Note [code = 94458-1] Goal Plan of Care Note [code = 41968-1] Goal Plan of Care Note [code = 30883-2] Goal Plan of Care Note [code = 38272-6] Goal Plan of Care Note [code = 16169-6] Goal Plan of Care Note [code = 91165-9] Goal Plan of Care Note [code = 48721-6] Goal Plan of Care Note [code = 12290-2] Goal Plan of Care Note [code = 88249-3] Goal Plan of Care Note [code = 73970-2] Goal Plan of Care Note [code = 89633-7] Goal Plan of Care Note [code = 73602-3] Goal Plan of Care Note [code = 46522-9] Goal Plan of Care Note [code = 40228-7] Goal Plan of Care Note [code = 11580-6] Goal Plan of Care Note [code = 93575-1] Goal Plan of Care Note [code = 66329-8] Goal Plan of Care Note [code = 07757-7] Goal Plan of Care Note [code = 78857-4] Goal Plan of Care Note [code = 88976-0] Goal Plan of Care Note [code = 93749-3] Goal Plan of Care Note [code = 36468-3] Goal Plan of Care Note [code = 07122-8] Goal Plan of Care Note [code = 45855-3] Goal Plan of Care Note [code = 55222-4] Goal Plan of Care Note [code = 31731-3] Goal Plan of Care Note [code = 81896-8] Goal Plan of Care Note [code = 72096-4] Goal Plan of Care Note [code = 16626-0] Goal Plan of Care Note [code = 93313-7] Goal Plan of Care Note [code = 80575-9] Goal Plan of Care Note [code = 91314-7] Goal Plan of Care Note [code = 18441-1] Goal Plan of Care Note [code = 59487-4] Goal Plan of Care Note [code = 31676-4] Goal Plan of Care Note [code = 50864-6] Goal Plan of Care Note [code = 39487-5] Goal Plan of Care Note [code = 52922-5] Goal Plan of Care Note [code = 14663-6] Goal Plan of Care Note [code = 13868-3] Goal Plan of Care Note [code = 11222-5] Goal Plan of Care Note [code = 48156-0] Goal Plan of Care Note [code = 20729-8] Goal Plan of Care Note [code = 77137-1] Goal Plan of Care Note [code = 46334-8] Goal Plan of Care Note [code = 57225-1] Goal Plan of Care Note [code = 20019-9] Goal Plan of Care Note [code = 13314-0] Goal Plan of Care Note [code = 29880-9] Goal Plan of Care Note [code = 99305-2] Goal Plan of Care Note [code = 53746-8] Goal Plan of Care Note [code = 23634-8] Goal Plan of Care Note [code = 13927-2] Goal Plan of Care Note [code = 55237-6] Goal Plan of Care Note [code = 09347-9] Goal Plan of Care Note [code = 46685-6] Goal Plan of Care Note [code = 43996-6] Goal Plan of Care Note [code = 59547-1] Goal Plan of Care Note [code = 51788-2] Goal Plan of Care Note [code = 68144-4] Goal Plan of Care Note [code = 68483-9] Goal Plan of Care Note [code = 22932-9] Goal Plan of Care Note [code = 96588-6] Goal Plan of Care Note [code = 43241-5] Goal Plan of Care Note [code = 56832-2] Goal Plan of Care Note [code = 14116-3] Goal Plan of Care Note [code = 26794-5] Goal Plan of Care Note [code = 43643-7] Goal Plan of Care Note [code = 37169-4] Goal Plan of Care Note [code = 05198-6] Goal Plan of Care Note [code = 78721-1] Goal Plan of Care Note [code = 00913-9] Goal Plan of Care Note [code = 92993-9] Goal Plan of Care Note [code = 62394-0] Goal Plan of Care Note [code = 77675-6] Goal Plan of Care Note [code = 88317-5] Goal Plan of Care Note [code = 27387-9] Goal Plan of Care Note [code = 43619-6] Goal Plan of Care Note [code = 78470-2] Goal Plan of Care Note [code = 97542-6] Goal Plan of Care Note [code = 35081-5] Goal Plan of Care Note [code = 71228-5] Goal Plan of Care Note [code = 37310-7] Goal Plan of Care Note [code = 89133-0] Goal Plan of Care Note [code = 11725-2] Goal Plan of Care Note [code = 42552-8] Goal Plan of Care Note [code = 29980-3] Goal Plan of Care Note [code = 35593-7] Goal Plan of Care Note [code = 12789-6] Goal Plan of Care Note [code = 51765-5] Goal Plan of Care Note [code = 35428-1] Goal Plan of Care Note [code = 29145-3] Goal Plan of Care Note [code = 50965-5] Goal Plan of Care Note [code = 80107-4] Goal Plan of Care Note [code = 16614-1] Goal Plan of Care Note [code = 93301-6] Goal Plan of Care Note [code = 66357-0] Goal Plan of Care Note [code = 33748-0] Goal Plan of Care Note [code = 04331-1] Goal Plan of Care Note [code = 28830-4] Goal Plan of Care Note [code = 45963-9] Goal Plan of Care Note [code = 44521-1] Goal Plan of Care Note [code = 90579-1] Goal Plan of Care Note [code = 58990-9] Goal Plan of Care Note [code = 81228-6] Goal Plan of Care Note [code = 74454-6] Goal Plan of Care Note [code = 87874-8] Goal Plan of Care Note [code = 11338-0] Goal Plan of Care Note [code = 49292-9] Goal Plan of Care Note [code = 53134-5] Goal Plan of Care Note [code = 50066-3] Goal Plan of Care Note [code = 97961-5] Goal Plan of Care Note [code = 16728-8] Goal Plan of Care Note [code = 90174-2] Goal Plan of Care Note [code = 92703-0] Goal Plan of Care Note [code = 19398-1] Goal Plan of Care Note [code = 56164-0] Goal Plan of Care Note [code = 08565-4] Goal Plan of Care Note [code = 90350-0] Goal Plan of Care Note [code = 90768-3] Goal Plan of Care Note [code = 71525-8] Goal Plan of Care Note [code = 69416-4] Goal Plan of Care Note [code = 37878-9] Goal Plan of Care Note [code = 46582-1] Goal Plan of Care Note [code = 96744-2] Goal Plan of Care Note [code = 87981-5] Goal Plan of Care Note [code = 81220-1] Goal Plan of Care Note [code = 50717-0] Goal Plan of Care Note [code = 48336-4] Goal Plan of Care Note [code = 57489-5] Goal Plan of Care Note [code = 99030-0] Goal Plan of Care Note [code = 19685-0] Goal Plan of Care Note [code = 02450-3] Goal Plan of Care Note [code = 19646-4] Goal Plan of Care Note [code = 39961-7] Goal Plan of Care Note [code = 73844-1] Goal Plan of Care Note [code = 23577-4] Goal Plan of Care Note [code = 69716-7] Goal Plan of Care Note [code = 12525-3] Goal Plan of Care Note [code = 38987-8] Goal Plan of Care Note [code = 76019-1] Goal Plan of Care Note [code = 30131-1] Goal Plan of Care Note [code = 77002-8] Goal Plan of Care Note [code = 89432-0] Goal Plan of Care Note [code = 87080-9] Goal Plan of Care Note [code = 42570-2] Goal Plan of Care Note [code = 70314-2] Goal Plan of Care Note [code = 93732-2] Goal Plan of Care Note [code = 41610-8] Goal Plan of Care Note [code = 27979-4] Goal Plan of Care Note [code = 36383-9] Goal Plan of Care Note [code = 22179-2] Goal Plan of Care Note [code = 06910-8] Goal Plan of Care Note [code = 32771-9] Goal Plan of Care Note [code = 47231-2] Goal Plan of Care Note [code = 55859-5] Goal Plan of Care Note [code = 91134-8] Goal Plan of Care Note [code = 00288-6] Goal Plan of Care Note [code = 07091-9] Goal Plan of Care Note [code = 78676-8] Goal Plan of Care Note [code = 15852-5] Goal Plan of Care Note [code = 40457-2] Goal Plan of Care Note [code = 29440-1] Goal Plan of Care Note [code = 01754-9] Goal Plan of Care Note [code = 27531-0] Goal Plan of Care Note [code = 18717-1] Goal Plan of Care Note [code = 26868-6] Goal Plan of Care Note [code = 76496-9] Goal Plan of Care Note [code = 07939-7] Goal Plan of Care Note [code = 61645-8] Goal Plan of Care Note [code = 43903-5] Goal Plan of Care Note [code = 44523-5] Goal Plan of Care Note [code = 06121-4] Goal Plan of Care Note [code = 89097-1] Goal Plan of Care Note [code = 27428-3] Goal Plan of Care Note [code = 86876-6] Goal Plan of Care Note [code = 43235-1] Goal Plan of Care Note [code = 14615-9] Goal Plan of Care Note [code = 17414-2] Goal Plan of Care Note [code = 15290-1] Goal Plan of Care Note [code = 94755-5] Goal Plan of Care Note [code = 20771-1] Goal Plan of Care Note [code = 11207-5] Goal Plan of Care Note [code = 99171-8] Goal Plan of Care Note [code = 70238-2] Goal Plan of Care Note [code = 01591-4] Goal Plan of Care Note [code = 87585-9] Goal Plan of Care Note [code = 58073-9] Goal Plan of Care Note [code = 51048-2] Goal Plan of Care Note [code = 23302-5] Goal Plan of Care Note [code = 47351-7] Goal Plan of Care Note [code = 06909-1] Goal Plan of Care Note [code = 52783-1] Goal Plan of Care Note [code = 38819-1] Goal Plan of Care Note [code = 59136-6] Goal Plan of Care Note [code = 79582-2] Goal Plan of Care Note [code = 28645-6] Goal Plan of Care Note [code = 48041-7] Goal Plan of Care Note [code = 68946-7] Goal Plan of Care Note [code = 11746-1] Goal Plan of Care Note [code = 67325-9] Goal Plan of Care Note [code = 96983-4] Goal Plan of Care Note [code = 83128-5] Goal Plan of Care Note [code = 90470-5] Goal Plan of Care Note [code = 55623-8] Goal Plan of Care Note [code = 52782-0] Goal Plan of Care Note [code = 95581-5] Goal Plan of Care Note [code = 08997-0] Goal Plan of Care Note [code = 76234-2] Goal Plan of Care Note [code = 59833-9] Goal Plan of Care Note [code = 89696-3] Goal Plan of Care Note [code = 58191-4] Goal Plan of Care Note [code = 26617-8] Goal Plan of Care Note [code = 73387-7] Goal Plan of Care Note [code = 49783-1] Goal Plan of Care Note [code = 91616-9] Goal Plan of Care Note [code = 84577-1] Goal Plan of Care Note [code = 52078-5] Goal Plan of Care Note [code = 89852-2] Goal Plan of Care Note [code = 67265-9] Goal Plan of Care Note [code = 07488-1] Goal Plan of Care Note [code = 85006-8] Goal Plan of Care Note [code = 37936-9] Goal Plan of Care Note [code = 95321-0] Goal Plan of Care Note [code = 39247-6] Goal Plan of Care Note [code = 98486-5] Goal Plan of Care Note [code = 51824-9] Goal Plan of Care Note [code = 99669-1] Goal Plan of Care Note [code = 86258-0] Goal Plan of Care Note [code = 73982-0] Goal Plan of Care Note [code = 90619-3] Goal Plan of Care Note [code = 62481-6] Goal Plan of Care Note [code = 00316-8] Goal Plan of Care Note [code = 09799-5] Goal Plan of Care Note [code = 30620-4] Goal Plan of Care Note [code = 79082-2] Goal Plan of Care Note [code = 18240-4] Goal Plan of Care Note [code = 10392-9] Goal Plan of Care Note [code = 56487-6] Goal Plan of Care Note [code = 91578-8] Goal Plan of Care Note [code = 10231-6] Goal Plan of Care Note [code = 00990-9] Goal Plan of Care Note [code = 98310-4] Goal Plan of Care Note [code = 47123-0] Goal Plan of Care Note [code = 33195-7] Goal Plan of Care Note [code = 84449-7] Goal Plan of Care Note [code = 03562-6] Goal Plan of Care Note [code = 17289-2] Goal Plan of Care Note [code = 29567-8] Goal Plan of Care Note [code = 62335-1] Goal Plan of Care Note [code = 87076-5] Goal Plan of Care Note [code = 59204-2] Goal Plan of Care Note [code = 16349-6] Goal Plan of Care Note [code = 13722-6] Goal Plan of Care Note [code = 78151-4] Goal Plan of Care Note [code = 35349-3] Goal Plan of Care Note [code = 01074-1] Goal Plan of Care Note [code = 32069-1] Goal Plan of Care Note [code = 22647-1] Goal Plan of Care Note [code = 70641-9] Goal Plan of Care Note [code = 43868-8] Goal Plan of Care Note [code = 54011-3] Goal Plan of Care Note [code = 55215-3] Goal Plan of Care Note [code = 76789-7] Goal Plan of Care Note [code = 02983-2] Goal Plan of Care Note [code = 59997-2] Goal Plan of Care Note [code = 57569-5] Goal Plan of Care Note [code = 74554-6] Goal Plan of Care Note [code = 32323-4] Goal Plan of Care Note [code = 23847-3] Goal Plan of Care Note [code = 69169-8] Goal Plan of Care Note [code = 92194-0] Goal Plan of Care Note [code = 14544-8] Goal Plan of Care Note [code = 24625-5] Goal Plan of Care Note [code = 06671-2] Goal Plan of Care Note [code = 62742-5] Goal Plan of Care Note [code = 67608-0] Goal Plan of Care Note [code = 35220-7] Goal Plan of Care Note [code = 74164-1] Goal Plan of Care Note [code = 45911-9] Goal Plan of Care Note [code = 01734-5] Goal Plan of Care Note [code = 04318-5] Goal Plan of Care Note [code = 69885-6] Goal Plan of Care Note [code = 28278-7] Goal Plan of Care Note [code = 59943-8] Goal Plan of Care Note [code = 09126-2] Goal Plan of Care Note [code = 83388-6] Goal Plan of Care Note [code = 62445-4] Goal Plan of Care Note [code = 64455-0] Goal Plan of Care Note [code = 69607-0] Goal Plan of Care Note [code = 50123-2] Goal Plan of Care Note [code = 06779-6] Goal Plan of Care Note [code = 62204-5] Goal Plan of Care Note [code = 07508-9] Goal Plan of Care Note [code = 00651-4] Goal Plan of Care Note [code = 56296-2] Goal Plan of Care Note [code = 75837-2] Goal Plan of Care Note [code = 35640-1] Goal Plan of Care Note [code = 88471-4] Goal Plan of Care Note [code = 99520-8] Goal Plan of Care Note [code = 87343-9] Goal Plan of Care Note [code = 62481-6] Goal Plan of Care Note [code = 31768-4] Goal Plan of Care Note [code = 48307-7] Goal Plan of Care Note [code = 98782-6] Goal Plan of Care Note [code = 77110-6] Goal Plan of Care Note [code = 38270-3] Goal Plan of Care Note [code = 31230-6] Goal Plan of Care Note [code = 28539-2] Goal Plan of Care Note [code = 19669-9] Goal Plan of Care Note [code = 41335-6] Goal Plan of Care Note [code = 95318-4] Goal Plan of Care Note [code = 34844-4] Goal Plan of Care Note [code = 78405-9] Goal Plan of Care Note [code = 86042-4] Goal Plan of Care Note [code = 27143-3] Goal Plan of Care Note [code = 81180-5] Goal Plan of Care Note [code = 87250-5] Goal Plan of Care Note [code = 58967-8] Goal Plan of Care Note [code = 65688-1] Goal Plan of Care Note [code = 17958-4] Goal Plan of Care Note [code = 66938-0] Goal Plan of Care Note [code = 96430-1] Goal Plan of Care Note [code = 33255-6] Goal Plan of Care Note [code = 88147-8] Goal Plan of Care Note [code = 50035-5] Goal Plan of Care Note [code = 21351-9] Goal Plan of Care Note [code = 35659-2] Goal Plan of Care Note [code = 29044-2] Goal Plan of Care Note [code = 72437-9] Goal Plan of Care Note [code = 67257-6] Goal Plan of Care Note [code = 45663-1] Goal Plan of Care Note [code = 19154-9] Goal Plan of Care Note [code = 05666-1] Goal Plan of Care Note [code = 91709-1] Goal Plan of Care Note [code = 63332-5] Goal Plan of Care Note [code = 22963-6] Goal Plan of Care Note [code = 53035-0] Goal Plan of Care Note [code = 35030-0] Goal Plan of Care Note [code = 90408-3] Goal Plan of Care Note [code = 32808-4] Goal Plan of Care Note [code = 78893-2] Goal Plan of Care Note [code = 92215-2] Goal Plan of Care Note [code = 01655-8] Goal Plan of Care Note [code = 74450-8] Goal Plan of Care Note [code = 35222-1] Goal Plan of Care Note [code = 17913-7] Goal Plan of Care Note [code = 88790-7] Goal Plan of Care Note [code = 02108-6] Goal Plan of Care Note [code = 61419-8] Goal Plan of Care Note [code = 76376-7] Goal Plan of Care Note [code = 01207-0] Goal Plan of Care Note [code = 68652-1] Goal Plan of Care Note [code = 11976-8] Goal Plan of Care Note [code = 74094-6] Goal Plan of Care Note [code = 66143-9] Goal Plan of Care Note [code = 19465-9] Goal Plan of Care Note [code = 46085-9] Goal Plan of Care Note [code = 94060-4] Goal Plan of Care Note [code = 05545-9] Goal Plan of Care Note [code = 53282-1] Goal Plan of Care Note [code = 42742-5] Goal Plan of Care Note [code = 14067-4] Goal Plan of Care Note [code = 72067-7] Goal Plan of Care Note [code = 03051-1] Goal Plan of Care Note [code = 38878-8] Goal Plan of Care Note [code = 45744-5] Goal Plan of Care Note [code = 71000-2] Goal Plan of Care Note [code = 93995-8] Goal Plan of Care Note [code = 71297-4] Goal Plan of Care Note [code = 69787-7] Goal Plan of Care Note [code = 84760-9] Goal Plan of Care Note [code = 94475-5] Goal Plan of Care Note [code = 67003-1] Goal Plan of Care Note [code = 75196-8] Goal Plan of Care Note [code = 05933-6] Goal Plan of Care Note [code = 23531-4] Goal Plan of Care Note [code = 57843-0] Goal Plan of Care Note [code = 82598-7] Goal Plan of Care Note [code = 98151-0] Goal Plan of Care Note [code = 28875-6] Goal Plan of Care Note [code = 10543-7] Goal Plan of Care Note [code = 73053-5] Goal Plan of Care Note [code = 75472-3] Goal Plan of Care Note [code = 94578-2] Goal Plan of Care Note [code = 78747-0] Goal Plan of Care Note [code = 55435-4] Goal Plan of Care Note [code = 16118-8] Goal Plan of Care Note [code = 16870-4] Goal Plan of Care Note [code = 46348-0] Goal Plan of Care Note [code = 41512-3] Goal Plan of Care Note [code = 27566-7] Goal Plan of Care Note [code = 96388-4] Goal Plan of Care Note [code = 18423-9] Goal Plan of Care Note [code = 71681-4] Goal Plan of Care Note [code = 46785-1] Goal Plan of Care Note [code = 28490-9] Goal Plan of Care Note [code = 60774-5] Goal Plan of Care Note [code = 74809-4] Goal Plan of Care Note [code = 52139-2] Goal Plan of Care Note [code = 47208-3] Goal Plan of Care Note [code = 05290-4] Goal Plan of Care Note [code = 55221-9] Goal Plan of Care Note [code = 86944-9] Goal Plan of Care Note [code = 19148-9] Goal Plan of Care Note [code = 57331-1] Goal Plan of Care Note [code = 37002-8] Goal Plan of Care Note [code = 95734-4] Goal Plan of Care Note [code = 12425-0] Goal Plan of Care Note [code = 67188-8] Goal Plan of Care Note [code = 44648-3] Goal Plan of Care Note [code = 75424-7] Goal Plan of Care Note [code = 35123-4] Goal Plan of Care Note [code = 63330-7] Goal Plan of Care Note [code = 79898-5] Goal Plan of Care Note [code = 95302-1] Goal Plan of Care Note [code = 16773-9] Goal Plan of Care Note [code = 12300-2] Goal Plan of Care Note [code = 54622-1] Goal Plan of Care Note [code = 22101-7] Goal Plan of Care Note [code = 05355-2] Goal Plan of Care Note [code = 70681-4] Goal Plan of Care Note [code = 47461-2] Goal Plan of Care Note [code = 59294-2] Goal Plan of Care Note [code = 26874-8] Goal Plan of Care Note [code = 66058-6] Goal Plan of Care Note [code = 23171-3] Goal Plan of Care Note [code = 52408-0] Goal Plan of Care Note [code = 21627-8] Goal Plan of Care Note [code = 13814-1] Goal Plan of Care Note [code = 14176-2] Goal Plan of Care Note [code = 88143-5] Goal Plan of Care Note [code = 92982-5] Goal Plan of Care Note [code = 30457-5] Goal Plan of Care Note [code = 87472-9] Goal Plan of Care Note [code = 69109-8] Goal Plan of Care Note [code = 99266-8] Goal Plan of Care Note [code = 00411-2] Goal Plan of Care Note [code = 76864-3] Goal Plan of Care Note [code = 36299-3] Goal Plan of Care Note [code = 69737-3] Goal Plan of Care Note [code = 40063-0] Goal Plan of Care Note [code = 44938-1] Goal Plan of Care Note [code = 34938-8] Goal Plan of Care Note [code = 89457-2] Goal Plan of Care Note [code = 90959-5] Goal Plan of Care Note [code = 29823-2] Goal Plan of Care Note [code = 61452-1] Goal Plan of Care Note [code = 28592-3] Goal Plan of Care Note [code = 28958-9] Goal Plan of Care Note [code = 61861-5] Goal Plan of Care Note [code = 75313-1] Goal Plan of Care Note [code = 29535-2] Goal Plan of Care Note [code = 38838-7] Goal Plan of Care Note [code = 83559-3] Goal Plan of Care Note [code = 96060-6] Goal Plan of Care Note [code = 89652-9] Goal Plan of Care Note [code = 13807-8] Goal Plan of Care Note [code = 83548-8] Goal Plan of Care Note [code = 64091-1] Goal Plan of Care Note [code = 18183-1] Goal Plan of Care Note [code = 09469-2] Goal Plan of Care Note [code = 87546-6] Goal Plan of Care Note [code = 44830-1] Goal Plan of Care Note [code = 15635-3] Goal Plan of Care Note [code = 58098-8] Goal Plan of Care Note [code = 12867-7] Goal Plan of Care Note [code = 65279-6] Goal Plan of Care Note [code = 73073-3] Goal Plan of Care Note [code = 36988-5] Goal Plan of Care Note [code = 48313-9] Goal Plan of Care Note [code = 41498-9] Goal Plan of Care Note [code = 42493-9] Goal Plan of Care Note [code = 06529-0] Goal Plan of Care Note [code = 16925-8] Goal Plan of Care Note [code = 00667-2] Goal Plan of Care Note [code = 31217-4] Goal Plan of Care Note [code = 48429-4] Goal Plan of Care Note [code = 35851-8] Goal Plan of Care Note [code = 55370-3] Goal Plan of Care Note [code = 58038-7] Goal Plan of Care Note [code = 38208-2] Goal Plan of Care Note [code = 20141-8] Goal Plan of Care Note [code = 31404-1] Goal Plan of Care Note [code = 07981-2] Goal Plan of Care Note [code = 65686-2] Goal Plan of Care Note [code = 43642-8] Goal Plan of Care Note [code = 07064-4] Goal Plan of Care Note [code = 17047-6] Goal Plan of Care Note [code = 02239-7] Goal Plan of Care Note [code = 89506-3] Goal Plan of Care Note [code = 19350-5] Goal Plan of Care Note [code = 35111-7] Goal Plan of Care Note [code = 72549-3] Goal Plan of Care Note [code = 12127-3] Goal Plan of Care Note [code = 14150-6] Goal Plan of Care Note [code = 79447-7] Goal Plan of Care Note [code = 44122-8] Goal Plan of Care Note [code = 64629-7] Goal Plan of Care Note [code = 64590-6] Goal Plan of Care Note [code = 64970-7] Goal Plan of Care Note [code = 45483-5] Goal Plan of Care Note [code = 80519-7] Goal Plan of Care Note [code = 94616-2] Goal Plan of Care Note [code = 02040-3] Goal Plan of Care Note [code = 14966-1] Goal Plan of Care Note [code = 64210-2] Goal Plan of Care Note [code = 84870-5] Goal Plan of Care Note [code = 21096-8] Goal Plan of Care Note [code = 71779-7] Goal Plan of Care Note [code = 31632-0] Goal Plan of Care Note [code = 66382-6] Goal Plan of Care Note [code = 70240-1] Goal Plan of Care Note [code = 79479-9] Goal Plan of Care Note [code = 38579-8] Goal Plan of Care Note [code = 53316-7] Goal Plan of Care Note [code = 40426-6] Goal Plan of Care Note [code = 60320-4] Goal Plan of Care Note [code = 49469-5] Goal Plan of Care Note [code = 62435-3] Goal Plan of Care Note [code = 80593-3] Goal Plan of Care Note [code = 01719-6] Goal Plan of Care Note [code = 54983-9] Goal Plan of Care Note [code = 03516-7] Goal Plan of Care Note [code = 88251-3] Goal Plan of Care Note [code = 89666-9] Goal Plan of Care Note [code = 79075-4] Goal Plan of Care Note [code = 20624-6] Goal Plan of Care Note [code = 19783-9] Goal Plan of Care Note [code = 56723-3] Goal Plan of Care Note [code = 82681-5] Goal Plan of Care Note [code = 36619-4] Goal Plan of Care Note [code = 34192-8] Goal Plan of Care Note [code = 47380-2] Goal Plan of Care Note [code = 42772-3] Goal Plan of Care Note [code = 76626-7] Goal Plan of Care Note [code = 61055-7] Goal Plan of Care Note [code = 96368-8] Goal Plan of Care Note [code = 10824-8] Goal Plan of Care Note [code = 31245-0] Goal Plan of Care Note [code = 49741-7] Goal Plan of Care Note [code = 50790-4] Goal Plan of Care Note [code = 34522-6] Goal Plan of Care Note [code = 48502-6] Goal Plan of Care Note [code = 62255-6] Goal Plan of Care Note [code = 28147-5] Goal Plan of Care Note [code = 72302-4] Goal Plan of Care Note [code = 74410-8] Goal Plan of Care Note [code = 45115-2] Goal Plan of Care Note [code = 36789-9] Goal Plan of Care Note [code = 56717-6] Goal Plan of Care Note [code = 59976-9] Goal Plan of Care Note [code = 88978-3] Goal Plan of Care Note [code = 74141-0] Goal Plan of Care Note [code = 99854-6] Goal Plan of Care Note [code = 87857-9] Goal Plan of Care Note [code = 73721-8] Goal Plan of Care Note [code = 56176-3] Goal Plan of Care Note [code = 46176-7] Encounters Start End Encounter Admission Attending Care Care Encounter Source Date/Time Date/Time Type Type Clinicians Facility Department ID 2021-05-10 Emergency [facility] [id number] Univers 15:04:50 [facility] 2021-05-08 Emergency [facility] [id number] Univers 16:08:38 [facility] 2020-08-08 Inpatient Bebeto Valderrama HCATO RADI [id number] [facility] 15:30:00 59 [facility] 2020-08-02 Inpatient HCATO CARISSA [id number] [facility] 13:01:00 80 [facility] 2020-02-13 Inpatient HCATO CARISSA [id number] [facility] 19:15:00 41 [facility] 2020-01-16 Inpatient ERICA Wilson, HCATO SURG [id number] [facility] 16:00:00 Tomiko 97 [facility] 2023-07-06 2023-07-06 Outpatient ORLY THORPE [id number] Andreea 15:45:00 15:45:00 Seybol d 2023-03-30 2023-03-30 Outpatient ANDREEA CUTLER [id number] Andreea 13:15:00 13:15:00 AMNA Traoreol ivan 2023-03-09 2023-03-09 Outpatient ANDREEA BLOCK [id number] Andreea 08:40:00 08:40:00 KAVYA Traoreol ivan 2023-03-04 2023-03-04 Outpatient ANDREEA MINOR [id number] [place] 14:30:00 14:30:00 VALDEZ Seybol ivan 2023-03-01 2023-03-01 Outpatient SFA SFA [id number] Huang 11:57:21 11:57:21 0822 F Quirino 2023-02-28 2023-02-28 Outpatient ANDREEA RAIN [id number] Andreea 15:45:00 15:45:00 ARLENE Seybol d 2023-02-18 2023-02-18 Outpatient ANDREEA MINOR [id number] [place] 00:00:00 00:00:00 VALDEZ Seybol d 2023-02-18 2023-02-18 Outpatient ANDREEA MINOR [id number] [place] 00:00:00 00:00:00 VALDEZ Seybol d 2023-02-17 2023-02-17 Outpatient LAB90 ANDREEA BRAGA [id number] Andreea 17:15:00 17:15:00 Seybol d 2023-02-17 2023-02-17 Outpatient ANDREEA MINOR [id number] Andreea 16:30:00 16:30:00 VALDEZ Seybol d 2023-02-16 2023-02-16 Outpatient SFA SFA [id number] Huang 13:31:17 13:31:17 0809 F Quirino 2023-02-16 2023-02-16 Outpatient ANDREEA PEOPLES [id number] [place] 00:00:00 00:00:00 NETO Seybol d 2023-02-16 2023-02-16 Outpatient ANDREEA PEOPLES [id number] [place]reea 00:00:00 00:00:00 NETO Seybol d 2023-02-10 2023-02-10 Outpatient ANDREEA PEOPLES [id number] Andreea 00:00:00 00:00:00 NETO Seybol d 2023-02-02 2023-02-02 Outpatient ORLY THORPE [id number] [place] 14:30:00 14:30:00 Seybol d 2023-02-02 2023-02-02 Outpatient ANDREEA PEOPLES [id number] [place]reea 00:00:00 00:00:00 NETO Seybol d 2023-02-01 2023-02-01 Outpatient LISAZOYA ANDREEA BRAGA 122 [id number] [place] 15:00:00 15:00:00 Seybol d 2023-02-01 2023-02-01 Outpatient ANDREEA EID [id number] Andreea 14:30:00 14:30:00 NICOLÁS Seybol d 2023-01-10 2023-01-12 Outpatient X [facility] [id number] Univers 07:31:00 11:08:00 GUDELIA diaz [facility] 2023-01-10 2023[facility]01-12 [facility] 1.2.8 40.114 [id number] Univers 07:31:00 11:08:00 [facility] 4.2.7.[facility] [id number] [place] [address] [address] 2023-01-04 2023-01-04 Outpatient ORLY THORPE 122 [id number] Andreea 15:45:00 15:45:00 Seybol d 2022-12-27 2022-12-27 Outpatient ANDREEA PEOPLES [id number] Andreea 00:00:00 00:00:00 NETO Seybol d 2022-12-22 2022-12-22 Outpatient ANDREEA PEOPLES [id number] [place] 00:00:00 00:00:00 NETO Seybol d 2022-12-21 2022-12-21 Outpatient ANDREEA EID [id number] Andreea 14:15:00 14:15:00 NICOLÁS Seybol d 2022-12-17 2022-12-17 Outpatient LAB90 ANDREEA BRAGA [id number] Andreea 15:45:00 15:45:00 Seybol d 2022-12-17 2022-12-17 Outpatient ANDREEA PEOPLES [id number] Andreea 15:00:00 15:00:00 NETO Seybol d 2022-12-15 2022-12-15 Outpatient LAB90 ANDREEA BRAGA [id number] [place]reea 08:30:00 08:30:00 Seybol d 2022-12-07 2022-12-07 Outpatient TRIANDREEADOMINGUEZ ANDREEA BRAGA [id number] [place] 00:00:00 00:00:00 MD CASANDRA Seybol d 2022-11-30 2022-11-30 Outpatient ANDREEA MCCLELLAND [id number] Andreea 13:50:00 13:50:00 JUDI Seybol d 2022-11-29 2022-11-29 Outpatient ANDREEA MORRISON [id number] Andreea 00:00:00 00:00:00 IVELISSE Seybol d 2022-11-29 2022-11-29 Outpatient ANDREEA BRAGA [id number] [place] 00:00:00 00:00:00 Seybol d 2022-11-29 2022-11-29 Outpatient ANDREEA PEOPLES [id number] [place]a 00:00:00 00:00:00 NETO Seybol d 2022-11-24 2022-11-24 Outpatient ANDREEA PEOPLES [id number] Andreea 15:00:00 15:00:00 NETO Seybol d 2022-11-03 2022-11-03 Emergency [facility] 1.2.172.118 [id number] Univers 08:26:00 11:02:00 Katelyn BARBER 350.1.13.10 i lexii [facility] 4.2.7.2.686 [facility] [id number] [address] 2022-11-03 2022-11-03 Emergency X [facility] ERT [id number] Univers 08:26:00 11:02:00 KATELYN diaz [facility] 2022-11-01 2022-11-01 Outpatient SFA SFA [id number] Huang 16:16:49 16:16:49 0424 F Quirino 2022-11-01 2022-11-01 Outpatient ANDREEA PEOPLES [id number] [place] 16:00:00 16:00:00 NETO Seybol d 2022-11-01 2022-11-01 Outpatient ANDREEA PEOPLES [id number] [place] 00:00:00 00:00:00 NETO Seybol d 2022-10-27 2022-10-27 Outpatient NAOH, ANDREEA BRAGA [id number] [place] 14:00:00 14:00:00 FABIO Seybol d 2022-10-26 2022-10-26 Outpatient PREZAS, ANDREEA BRAGA [id number] [place] 00:00:00 00:00:00 NETO Seybol d 2022-10-26 2022-10-26 Outpatient PREZASANDREEA [id number] [place] 00:00:00 00:00:00 NETO Seybol d 2022-10-22 2022-10-22 Outpatient RAGINI, ANDREEA BRAGA [id number] [place] 16:45:00 16:45:00 NICOLÁS Seybol d 2022-10-21 2022-10-21 Outpatient MAURILIO ORLY ANDREEA BRAGA [id number] [place] 10:00:00 10:00:00 Seybol d 2022-10-01 2022-10-01 Outpatient PREZASANDREEA [id number] Andreea 15:45:00 15:45:00 NETO Seybol d 2022-09-24 2022-09-24 Outpatient JARBRINK-SE ANDREEA BRAGA [id number] [place] 15:00:00 15:00:00 HGYRIS MARIE Se ybold 2022-09-21 2022-09-21 Outpatient PREZAS, ANDREEA BRAGA [id number] [place] 15:00:00 15:00:00 NETO Seybol d 2022-09-20 2022-09-20 Outpatient PREZASANDREEA [id number] [place]a 00:00:00 00:00:00 NETO Seybol d 2022-09-10 2022-09-10 Outpatient RAGINI, ANDREEA BRAGA [id number] [place] 10:30:00 10:30:00 NICOLÁS Seybol d 2022-09-09 2022-09-09 Outpatient PREZASANDREEA [id number] [place]reea 00:00:00 00:00:00 NETO Seybol d 2022-09-09 2022-09-09 Outpatient PREZASANDREEA [id number] [place] 00:00:00 00:00:00 NETO Seybol d 2022-09-08 2022-09-08 Outpatient LAB90 ANDREEA ANDREEA [id number] [place] 08:00:00 08:00:00 Seybol d 2022-09-07 2022-09-07 Outpatient ANDREEA PEOPLES ANDREEA [id number] [place]a 15:00:00 15:00:00 NETO Seybol d 2022-09-01 2022-09-01 Transition JIE Hargrove 1.2.840.114 [id number] Univers 00:00:00 00:00:00 of Care Leslie Carlos Enrique RIVERA 350.1.13.10 i ty of [place] 4.2.7.2.686 [facility] [id number] [facility] [address] 2022-08-26 2022-08-30 Inpatient X [facility]AMALA [facility] [id number] Univers 14:36:00 10:41:00 MERI ity [facility] 2022-08-26 2022-08-30 [facility] Robert Lutz [facility] 1.2.840. 114 [id number] Univers 14:36:00 10:41:00 Encounter Paresh Wrayleticia BARBER 350.1.13.10 ity [facility] [place].2.[place] [id number] [facility] [address] 2022-07-09 2022-07-09 Outpatient [facility] SFA [id number] Huang 09:41:12 09:41:12 1230 F Quirino 2022-07-09 2022-07-09 Outpatient [id number]- [id number] 9d 49632f-z 00:00:00 00:00:00 Visit m01k-3yl0 40c-4fc9-a -v1hv-539 8bb-636dec kewc3684v g2964m 2022-06-23 2022-06-23 Outpatient me9k97lq- [id number] 2m12wp-6 00:00:00 00:00:00 Visit 6v5i-83e2 j3q-08f9-v -g6x5-i86 6q1-e526ns 3dh7i4711 6m1912 2022-06-21 2022-06-21 Emergency X LONI MACLAIR ERT [id number] Univers 17:30:00 23:11:00 KATELYN diaz of [facility] 2022-06-21 2022-06-21 Emergency Loni MACLAIR 1.2.197.469 [id number] Univers 17:30:00 23:11:00 Katelyn BARBER 350.1.13.10 i [facility] 4.2.7.2.686 [facility] [id number] [address] 2022-06-18 2022-06-18 Outpatient SFA SFA [id number] Huang 10:29:22 10:29:22 1209 F Sheldahl 2022-06-18 2022-06-18 Outpatient 5hk4jdv0- [id number] 3a a6cbp4-c 00:00:00 00:00:00 Visit xp6g-3md9 r9q-4bx4-w -g655-n29 058-s0638c 85cutm064 hcf304 2022-06-17 2022-06-17 Outpatient SFA SFA [id number] Huang 08:29:59 08:29:59 1208 F Sheldahl 2022-06-16 2022-06-16 Outpatient SFA SFA [id number] Huang 15:41:26 15:41:26 1207 F Quirino 2022-06-16 2022-06-16 Outpatient 9l514q9r- [id number] 2f 773w2m-m 00:00:00 00:00:00 Visit dee3-4499 ee3-4499-9 -917d-e2d 17d-k1p924 [id number] 87037z 2022-06-04 2022-06-04 Outpatient SFA SFA [id number] 022 Huang 11:59:44 11:59:44 1125 F Quirino 2022-06-02 2022-06-02 Outpatient 93c46l6l- [id number] i02h3o-5 00:00:00 00:00:00 Visit 756a-4a2e 56a-4a2e-b -b118-q13 549-e5639p 96u6693p9 9815d6 2022-04-29 2022-04-29 Outpatient SFA SFA [id number] Huang 08:03:25 08:03:25 1020 F Quirino 2022-04-29 2022-04-29 Outpatient [id number]- [id number] 9pr525-1 00:00:00 00:00:00 Visit 2ry4-4j03 bd7-4b85-9 -940e-c2d 40e-c2dfc3 ry5096387 417029 7187-10-14 2022-04-23 Outpatient pd3m4011- [id number] 5g4295-z 00:00:00 00:00:00 Visit uw75-6jyw k80-0tpp-7 -924a-d01 24a-d01f5f f6p6qe57h 4eb17f 2022-04-09 2022-04-09 Outpatient [facility] [id number] Huang 08:02:18 08:02:18 0930 F Quirino 2022-04-09 2022-04-09 Outpatient [id number]- [id number] c2 k72829-9 00:00:00 00:00:00 Visit 6m31-36p0 y27-85l1-7 -8750-031 750-0319bb 3mvzs1878 vw6654 2022-03-29 2022-03-29 Outpatient [id number] 459216-w 00:00:00 00:00:00 Visit d158-76n5 701-46a9-a -q6n6-b90 8d9-e25797 7324a93b5 3d26f8 2022-03-16 2022-03-16 Telephone [facility], 1.2.840.1 [id number] [id number] Methodi 00:00:00 00:00:[address] Dewi 3.430.2.7 Hospit a Arik .3.668607 l .8 2022-03-16 2022-03-16 [facility]phone [facility] 1.2.840.1 [id number] 2100 134972 Methodi 00:00:00 00:00:[address] Dewi 3.430.2.7 Hospit a Arik .3.959004 l .8 2022-03-11 2022-03-11 Telephone Ernst, 1.2.840.1 [id number] 2099 [id number] Methodi 00:00:00 00:00:[address] Dewi 3.430.2.7 Hospit a Arik .3.601843 l .8 2022-03-11 2022-03-11 Telephone Ernst, 1.2.840.1 [id number] 2099 [id number] Methodi 00:00:00 00:00:[address] Dewi 3.430.2.7 Hospit a Arik .3.863442 l .8 2022-03-09 2022-03-09 Outpatient [id number]- [id number] d6 c98450-n 00:00:00 00:00:00 Visit t93p-466e 56a-450d-9 -1m3i-96g m7z-69t775 935v59913 o73378 2022-01-20 2022-01-20 Outpatient 0tc32ldm- [id number] 0f t87nfy-2 00:00:00 00:00:00 Visit 8baf-464d baf-464d-a -n99u-531 91e-41036e 84xeio81s aeb84a 2021-10-16 2021-10-16 [facility] [id number] Univers 16:39:00 22:23:00 BEATRIZ diaz [facility] 2021-10-16 2021-10-16 Emergency [facility] 1.2.680.946 [id number] Univers 16:39:00 22:23:00 Beatriz BARBER 350.1.13.10 [facility] 4.2.7.2.686 [facility] [id number] [address] 2021-09-22 2021-09-22 Emergency X [facility] ERT [id number] Univers 09:56:00 12:05:00 JN diaz [facility] 2021-09-22 2021-09-22 Emergency Singer [facility] 1.2.337.660 [id number] Univers 09:56:00 12:05:00 Jn BARBER 350.1.13.10 i ty [facility]yn [facility] 4.2.7.2.686 [facility] [id number] [address] 2021-08-20 2021-08-20 [facility] 1.2.840.114 [id number] Univers 00:00:00 00:00:00 [facility] 350.1.13.10 it y of [place] 4.2.7.2.686 Blake as DANIELITO?BLEA [id number] Mn dical [address] MEDICAL OFFICE BUILDING 2021-07-31 2021-07-31 Outpatient ERICA Bebeto Quiroga Y000 [id number] [facility] 05:47:00 05:47:00 00 [facility] 2021-06-18 2021-06-18 Emergency X [facility] ERT [id number] Univers 04:31:00 08:25:00 FOZIA yangy [facility] 2021-06-18 2021-06-18 Emergency [facility] 1.2.402.268 [id number] Univers 04:31:00 08:25:00 Fozia BARBER 350.1.13.10 ity kristyn [facility] 4.2.7.2.686 [facility] [id number] [address] 2021-06-10 2021-06-10 Outpatient [facility] [id number] 827 [place] 00:00:00 00:00:[address] 2021-06-10 2021-06-10 Travel 1.2.840.1 1.2.913.775 [id number] Methodi 00:00:00 00:00:[address] 3.430.2.7 0.2.7.3.698 Ho spita .3.066041 084.8 l .8 2021-06-08 2021-06-08 Telephone Ernst, 1.2.840.1 [id number] 2099 318503 Methodi 00:00:00 00:00:[address] Dewi 3.430.2.7 Hospit a Arik .3.696247 l .8 2021-05-30 2021-05-30 Emergency X JAY [facility] ERT [id number] Univers 15:49:00 19:42:00 MARY [facility] 2021-05-30 2021-05-30 Emergency [facility] 1.2.956.925 [id number] Univers 15:49:00 19:42:00 Mary S [place] 350.1.13.10 i ty of [place].2.[id number] [address] 2021-03-17 2021-03-17 Ref[facility]ake [facility] 1.2.249.158 [id number] Univers 00:00:00 00:00:00 Doron Barber 350.1.13.10 i ty of [place] [id number] Mn dical nal 220 [facility] 2021-02-27 2021-02-27 [facility] [id number] Univers 15:00:00 15:00:00 DORON [facility] 2020-12-23 2020-12-23 Outpatient R ROBBIE [facility] [id number] Univers 16:00:00 16:00:00 FABIO [facility] 2020-12-10 2020-12-10 Outpatient R LISA [facility] [id number] Univers 09:00:00 09:53:04 SENDYAKELIN [facility] 2020-12-02 2020-12-04 Outpatient X [facility] [id number] Univers 19:53:00 17:23:00 FOZIA [facility] 2020-11-07 2020-11-07 Out[facility] [id number] Univers 13:30:00 13:30:00 DORON [facility] 2020-06-02 2020-06-02 Telephone [facility] 1.2.840.114 [id number] 00:00:00 00:00:00 Lily Barber 350.1.13.10 [place] 4.2.7.2.686 Professio [id number] [address] 2020-05-29 2020-05-29 Outpatient R LUIS [facility] [id number] Univers 15:15:00 15:15:00 LESLEE emily [facility] 2020-05-27 2020-05-27 Office [facility] 1.2.385.355 [id number] 10:59:24 11:54:17 Visit Lily Barber 350.1.13.10 [place] 4.2.7.2.686 Professio [id number] [address] 2020-05-27 2020-05-27 Outpatient R [facility] [id number] 00419 [facility] 10:45:00 10:45:00 LILY [facility] 2020-05-27 2020-05-27 Orders Doctor JACOBS 1.2.840.114 [id number] 00:00:00 00:00:00 Only Unassigned, BENITA 350.1.13.10 [place] [facility] 4.2.7.2.686 [id number] 009 2020-01-10 2020-01-10 Outpatient Katie, HCACL LABO [id number] [facility] 18:46:00 18:46:00 Tomiko 24 [facility] 2020-01-04 2020-01-04 Outpatient Katie HCATO RADI [id number] [facility] 13:00:00 13:00:00 Tomiko 18 [facility] 2019-12-12 2019-12-12 Outpatient Anupama SUN [facility] [id number] [facility] 16:30:00 16:30:00 STANISLAW diaz [facility] 2019-12-07 2019-12-07 Outpatient R DONNA [facility] [id number] [facility] 09:00:00 09:00:00 DORON diaz [facility] 2019-11-22 2019-11-22 Outpatient [facility] [id number] 119 [place] 00:00:00 00:00:00 SILVINA porras 2019-11-06 2019-11-06 Outpatient [facility] [id number] 737 [place] 00:00:00 00:00:00 SILVINA 632 [place] 2019-11-01 2019-11-01 Outpatient ANTOSH, [facility] [id number] 728 [place] 00:00:00 00:00:00 SILVINA 554 [place] 2019-10-30 2019-10-30 Outpatient GALAN, [facility] [id number] 620 [place] 00:00:00 00:00:00 ABHIJIT 714 Method i 2019-10-18 2019-10-18 Outpatient ANTOSH, [facility] [id number] [place] 00:00:00 00:00:00 SILVINA 629 [place] 2019-10-02 2019-10-02 Outpatient ANTOSH, [facility] [id number] 696 [place] 00:00:00 00:00:00 SILVINA 105 [place] 2019-10-01 2019-10-01 Outpatient ANTOSH, [facility] [id number] 639 [place] 00:00:00 00:00:00 SILVINA 439 [place] 2019-09-19 2019-09-19 Outpatient ANTOSH, [facility] [id number] 779 [place] 00:00:00 00:00:00 SILVINA 116 [place] 2019-09-11 2019-09-11 Outpatient Anupama SUN, [facility] [id number] [facility] 10:30:00 10:30:00 [facility] 2019-09-10 2019-09-10 Outpatient GALAN, [facility] [id number] 503 [place] 00:00:00 00:00:00 ABHIJIT 420 Method i 2019-09-10 2019-09-10 Outpatient ANTOSH, [facility] [id number] 217 [place] 00:00:00 00:00:00 SILVINA 373 [place] 2019-09-10 2019-09-10 Outpatient ANTOSH, [facility] [id number] 783 [place] 00:00:00 00:00:00 SILVINA 354 [place] 2019-08-23 2019-08-23 Outpatient Anupama DELEON, [facility] [id number] [facility] 16:15:00 10:31:44 LILY [facility] 2019-08-15 2019-08-15 Outpatient Anupama DELEON, [facility] [id number] Univers 09:15:00 09:44:35 LILY diaz [facility] 2019-07-07 2019-07-07 Emergency X KENYA [facility] ERT [id number] Univers 10:13:53 13:06:00 FOZIA diaz [facility] 2010-08-05 2010-08-07 Inpatient OUTP Kit Lopez [facility] SURG [id number] [facility] 16:20:00 14:00:00 00 [place] [facility] Results Test Description Test Time Test Comments Results Result Comments Source POCT GLUCOSE (AUTOMATED) 2023-01-12 12:35:42 Test Item Value Reference Range Interpretation Comme nts POCT GLU (test code = 4578538574) 179 mg/dL 70-110 H Lab Interpretation (test code = 00532-0) [facility] 02:35:59 Test Item Value Reference Range Interpretation Comments POCT GLU (test code = 4804402001) 267 mg/dL 70-110 H Lab Interpretation (test code = Abnormal 63882-4) [facility] 21:21:17 Test Item Value Reference Range Interpretation Comments POCT GLU (test code = 9834153335) 276 mg/dL 70-110 H Lab Interpretation (test code = Abnormal 72977-1) [facility]11 16:26:50 Test Item Value Reference Range Interpretation Comments POCT GLU (test code = 6599014473) 114 mg/dL 70-110 H Lab Interpretation (test code = Abnormal 14888-0) [facility] 12:44:00 Test Item Value Reference Range Interpretation Comments POCT GLU (test code = 2495094888) 142 mg/dL 70-110 H Lab Interpretation (test code = Abnormal 69782-3) [facility] 02:08:20 Test Item Value Reference Range Interpretation Comments POCT GLU (test code = 4059700451) 97 mg/dL 70-110 Lab Interpretation (test code = Normal 83563-6) [facility] 14:27:19 Test Item Value Reference Range Interpretation Comments TRIG (test code = 2181249608) 427 mg/dL 30-170 H Lab Interpretation (test code = Abnormal 97091-0) [facility]. METABOLIC PANEL (10774)2023-01-10 14:22:41 Test Item Value Reference Range Interpretation Comments NA (test code = 138 mmol/L 135-145 6280289616) K (test code = 4.6 mmol/L 3.5-5.0 4396943725) CL (test code = 102 mmol/L 98-108 0523927216) CO2 TOTAL (test code = 21 mmol/L 23-31 L 6593196541) AGAP (test code = 15 2-16 6335786491) BUN (test code = 24 mg/dL 7-23 H 6886875248) GLUCOSE (test code = 158 mg/dL 70-110 H 2294750383) CREATININE (test code = 0.82 mg/dL 0.50-1.04 3952545389) TOTAL BILI (test code = 0.4 mg/dL 0.1-1.8 5262774600) CALCIUM (test code = 9.4 mg/dL 8.6-10.6 7607558950) T PROTEIN (test code = 7.9 g/dL 6.3-8.2 9575424525) ALBUMIN (test code = 4.7 g/dL 3.5-5.0 4739457465) ALK PHOS (test code = 42 U/L 34-122 3840291557) ALTv (test code = 32 U/L 5-35 1742-6) AST(SGOT) (test code = 27 U/L 13-40 5022155502) eGFR (test code = 75.7 mL/min/1.73m2 3066540959) CALVIN (test code = CALVIN) Association of [...] tests). Lab Interpretation Abnormal (test code = 92052-4) [facility] 14:22:41 Test Item Value Reference Range Interpretation Comments LIPASE (test code = 9440794522) 682 U/L 0-220 H Lab Interpretation (test code = Abnormal 97549-4) [facility] WITH [id number] 14:15:28 Test Item Value Reference Range Interpretation Comments WBC (test code = 7.27 See_Comment [Automated 9111-2) message] The sy stem which generated this result transmitted reference range : 4.30 - 11.10 10*3/?L. The reference range was not used to interpret this result as normal/abnormal . RBC (test code = 4.56 See_Comment [Automated 307-8) message] The sy stem which generated this [...] RDW-SD (test code = 45.0 fL 39.0-49.9 02866-6) RDW-CV (test code = 14.9 % 12.0-15.5 788-0) PLT (test code = 260 See_Comment [Automated 777-3) message] The sy stem which generated this result transmitted reference range : 166 - 358 10*3/ ?L. The reference r doretha was not used to interpret this result as normal/abnormal . MPV (test code = 9.3 fL 9.5-12.9 L 10436-0) NRBC/100 WBC (test 0.0 See_Comment [Automat ed code = 9259628747) message] The system which generated this result transmitted reference range : 0.0 - 10.0 /100 WBCs. The refer ence range was not u sed to interpret th is result as normal/abnormal . NRBC x10^3 (test code See_Comment [Auto mated = 5129043658) message] The s ystem which generated this result transmitted reference range : 10*3/?L. The reference range was not used to interpret this result as normal/abnormal . GRAN MAT (NEUT) % 51.9 % (test code = 770-8) IMM GRAN % (test code 0.60 % = 2030542214) LYMPH % (test code = 34.7 % 736-9) MONO % (test code = 9.2 % 5905-5) EOS % (test code = 2.5 % 713-8) BASO % (test code = 1.1 % 706-2) GRAN MAT x10^3(ANC) 3.78 10*3/uL 1.88-7.09 (test code = 1582510276) IMM GRAN x10^3 (test 0.04 10*3/uL 0.00-0.06 code = 7430028003) LYMPH x10^3 (test code 2.52 10*3/uL 1.32-3.29 = 731-0) MONO x10^3 (test code 0.67 10*3/uL 0.33-0.92 = 742-7) EOS x10^3 (test code = 0.18 10*3/uL 0.03-0.39 711-2) BASO x10^3 (test code 0.08 10*3/uL 0.01-0.07 H = 704-7) Lab Interpretation Abnormal (test code = 44416-0) [id number]00 Test Item Value Reference Range Interpretation Comments POCT PREG (test code = 1605) Negative On board controls acceptable with C Yes Line (test code = 3574) Lab Interpretation (test code = Normal 17011-1) [facility] [id number] 00:00:00 Test Item Value Reference Range Interpretation Comments BLOOD SUGAR (test code = 881187) 276 mg/dL 65-99 A Lab Interpretation (test code = Abnormal 95427-5) Andreea [facility] ExternalLIPID PANEL (83464)(TOTAL CHOLESTEROL, TRIGLYCERIDES, HDL)2022-11-03 14:32:57 Test Item Value Reference Range Interpretation Comments CHOL (test code = 236 mg/dL 120-200 H 8640239329) HDL (test code = 32 mg/dL >=50 L 3947229316) HDLC RATIO (test code = 7.4 <=4.5 H 7041796851) TRIG (test code = 667 mg/dL 30-170 H 3942573665) LDL CHOL (test code = Unable to calculate 51535-8) LDL due to elev ated triglyceride le jossy greater than 40 0 mg/dL. VLDL (test code = 133 mg/dL 5-60 H 6726399279) Lab Interpretation Abnormal (test code = 31472-6) [facility] METABOLIC PANEL (NA, K, CL, CO2, GLUCOSE, BUN, CREATININE, CA)2022-11-03 14:18:35 Test Item Value Reference Range Interpretation Comments NA (test code = 139 mmol/L 135-145 5895944144) K (test code = 4.4 mmol/L 3.5-5.0 7387481396) CL (test code = 105 mmol/L 98-108 7283753172) CO2 TOTAL (test code = 23 mmol/L 23-31 5144071612) AGAP (test code = 11 2-16 4971866988) BUN (test code = 12 mg/dL 7-23 9094695883) GLUCOSE (test code = 279 mg/dL 70-110 H 6300968452) CREATININE (test code = 0.59 mg/dL 0.50-1.04 5813007862) CALCIUM (test code = 9.8 mg/dL 8.6-10.6 7371546564) eGFR (test code = 110.7 mL/min/1.73m2 0826704895) CALVIN (test code = CALVIN) Association of [...] tests). Lab Interpretation Abnormal (test code = 46519-8) [facility]37411[facility] (ALB,T.PRO,BILI T,BU/BC,ALT,AST,ALK PHOS)2022-11-03 14:18:35 Test Item Value Reference Range Interpretation Comments TOTAL BILI (test code = 3317704632) 0.8 mg/dL 0.1-1.1 BILI UNCON (test code = 6623193901) 0.6 mg/dL 0.1-1.1 BILI CONJ (test code = 9860945669) 0.0 mg/dL 0.0-0.3 T PROTEIN (test code = 2388152023) 8.5 g/dL 6.3-8.2 H ALBUMIN (test code = 7088153921) 4.9 g/dL 3.5-5.0 ALK PHOS (test code = 3852704517) 48 U/L 34-122 ALTv (test code = 1742-6) 60 U/L 5-35 H AST(SGOT) (test code = 7600090568) 56 U/L 13-40 H Lab Interpretation (test code = Abnormal 17525-1) [facility] 14:18:15 Test Item Value Reference Range Interpretation Comments LIPASE (test code = 7090505876) 240 U/L 0-220 H Lab Interpretation (test code = Abnormal 42845-4) [facility] WITH [id number] 14:01:29 Test Item Value Reference Range Interpretation Comments WBC (test code = 6.73 See_Comment [Automated 8490-2) message] The sy stem which generated this result transmitted reference range : 4.30 - 11.10 10*3/?L. The reference range was not used to interpret this result as normal/abnormal . RBC (test code = 4.90 See_Comment [Automated 815-8) message] The sy stem which generated this [...] RDW-SD (test code = 39.7 fL 39.0-49.9 95673-8) RDW-CV (test code = 13.0 % 12.0-15.5 788-0) PLT (test code = 252 See_Comment [Automated 777-3) message] The sy stem which generated this result transmitted reference range : 166 - 358 10*3/ ?L. The reference r doretha was not used to interpret this result as normal/abnormal . MPV (test code = 9.4 fL 9.5-12.9 L 43479-9) NRBC/100 WBC (test 0.0 See_Comment [Automat ed code = 5478126876) message] The system which generated this result transmitted reference range : 0.0 - 10.0 /100 WBCs. The refer ence range was not u sed to interpret th is result as normal/abnormal . NRBC x10^3 (test code See_Comment [Auto mated = 3094517637) message] The s ystem which generated this result transmitted reference range : 10*3/?L. The reference range was not used to interpret this result as normal/abnormal . GRAN MAT (NEUT) % 54.5 % (test code = 770-8) IMM GRAN % (test code 0.70 % = 9761273425) LYMPH % (test code = 34.3 % 736-9) MONO % (test code = 7.4 % 5905-5) EOS % (test code = 2.1 % 713-8) BASO % (test code = 1.0 % 706-2) GRAN MAT x10^3(ANC) 3.66 10*3/uL 1.88-7.09 (test code = 4263847749) IMM GRAN x10^3 (test 0.05 10*3/uL 0.00-0.06 code = 7216327956) LYMPH x10^3 (test code 2.31 10*3/uL 1.32-3.29 = 731-0) MONO x10^3 (test code 0.50 10*3/uL 0.33-0.92 = 742-7) EOS x10^3 (test code = 0.14 10*3/uL 0.03-0.39 711-2) BASO x10^3 (test code 0.07 10*3/uL 0.01-0.07 = 704-7) Lab Interpretation Abnormal (test code = 08973-3) [facility] [id number] 00:00:00 Test Item Value Reference Range Interpretation Comments BLOOD SUGAR (test code = 904100) 260 mg/dL 65-99 A Lab Interpretation (test code = Abnormal 14686-4) [facility]ree[facility] GLUCOSE (AUTOMATED)2022-08-30 14:54:37 Test Item Value Reference Range Interpretation Comments POCT GLU (test code = 7874430760) 123 mg/dL 70-110 H Lab Interpretation (test code = Abnormal 47139-3) [facility] GLUCOSE (AUTOMATED)2022-08-30 13:07:24 Test Item Value Reference Range Interpretation Comments POCT GLU (test code = 5639206253) 130 mg/dL 70-110 H Lab Interpretation (test code = Abnormal 49857-9) [facility] GLUCOSE (AUTOMATED)2022-08-30 12:05:08 Test Item Value Reference Range Interpretation Comments POCT GLU (test code = 3234725388) 136 mg/dL 70-110 H Lab Interpretation (test code = Abnormal 35388-4) [facility] GLUCOSE (AUTOMATED)2022-08-30 11:08:07 Test Item Value Reference Range Interpretation Comments POCT GLU (test code = 2061120024) 115 mg/dL 70-110 H Lab Interpretation (test code = Abnormal 16697-1) [facility] GLUCOSE (AUTOMATED)2022-08-30 10:21:27 Test Item Value Reference Range Interpretation Comments POCT GLU (test code = 8314349233) 111 mg/dL 70-110 H Lab Interpretation (test code = Abnormal 15146-8) [facility] GLUCOSE (AUTOMATED)2022-08-30 09:12:24 Test Item Value Reference Range Interpretation Comments POCT GLU (test code = 9406773752) 121 mg/dL 70-110 H Lab Interpretation (test code = Abnormal 65219-9) [facility] GLUCOSE (AUTOMATED)2022-08-30 08:11:01 Test Item Value Reference Range Interpretation Comments POCT GLU (test code = 2402586441) 137 mg/dL 70-110 H Lab Interpretation (test code = Abnormal 78764-4) [facility]-30 07:47:30 Test Item Value Reference Range Interpretation Comments POCT GLU (test code = 6781642923) 134 mg/dL 70-110 H Lab Interpretation (test code = Abnormal 09243-0) [facility] GLUCOSE (AUTOMATED)2022-08-30 06:32:02 Test Item Value Reference Range Interpretation Comments POCT GLU (test code = 3535146414) 128 mg/dL 70-110 H Lab Interpretation (test code = Abnormal 92798-8) [facility] GLUCOSE (AUTOMATED)2022-08-30 05:05:59 Test Item Value Reference Range Interpretation Comments POCT GLU (test code = 8505053978) 157 mg/dL 70-110 H Lab Interpretation (test code = Abnormal 98051-2) [facility] GLUCOSE (AUTOMATED)2022-08-30 04:14:51 Test Item Value Reference Range Interpretation Comments POCT GLU (test code = 3090585458) 181 mg/dL 70-110 H Lab Interpretation (test code = Abnormal 52994-2) [facility] GLUCOSE (AUTOMATED)2022-08-30 03:07:48 Test Item Value Reference Range Interpretation Comments POCT GLU (test code = 2820749477) 150 mg/dL 70-110 H Lab Interpretation (test code = Abnormal 69708-4) [facility] GLUCOSE (AUTOMATED)2022-08-30 02:26:22 Test Item Value Reference Range Interpretation Comments POCT GLU (test code = 3444590016) 118 mg/dL 70-110 H Lab Interpretation (test code = Abnormal 44456-7) [facility] GLUCOSE (AUTOMATED)2022-08-30 01:05:37 Test Item Value Reference Range Interpretation Comments POCT GLU (test code = 2549447267) 150 mg/dL 70-110 H Lab Interpretation (test code = Abnormal 74686-6) [facility] GLUCOSE (AUTOMATED)2022-08-30 00:05:56 Test Item Value Reference Range Interpretation Comments POCT GLU (test code = 3993930802) 206 mg/dL 70-110 H Lab Interpretation (test code = Abnormal 38406-5) [facility] GLUCOSE (AUTOMATED)2022-08-29 23:02:06 Test Item Value Reference Range Interpretation Comments POCT GLU (test code = 2928856436) 172 mg/dL 70-110 H Lab Interpretation (test code = Abnormal 58482-0) [facility] GLUCOSE (AUTOMATED)2022-08-29 22:07:12 Test Item Value Reference Range Interpretation Comments POCT GLU (test code = 5102996415) 110 mg/dL 70-110 Lab Interpretation (test code = Normal 81207-5) [facility] GLUCOSE (AUTOMATED)2022-08-29 21:14:06 Test Item Value Reference Range Interpretation Comments POCT GLU (test code = 4811724088) 118 mg/dL 70-110 H Lab Interpretation (test code = Abnormal 36150-9) [facility] GLUCOSE (AUTOMATED)2022-08-29 20:09:27 Test Item Value Reference Range Interpretation Comments POCT GLU (test code = 3904804614) 104 mg/dL 70-110 Lab Interpretation (test code = Normal 34257-9) [facility] GLUCOSE (AUTOMATED)2022-08-29 19:11:06 Test Item Value Reference Range Interpretation Comments POCT GLU (test code = 7759009311) 101 mg/dL 70-110 Lab Interpretation (test code = Normal 77461-8) [facility] GLUCOSE (AUTOMATED)2022-08-29 18:15:25 Test Item Value Reference Range Interpretation Comments POCT GLU (test code = 6546555636) 125 mg/dL 70-110 H Lab Interpretation (test code = Abnormal 13765-4) [facility] GLUCOSE (AUTOMATED)2022-08-29 17:11:12 Test Item Value Reference Range Interpretation Comments POCT GLU (test code = 3875473440) 116 mg/dL 70-110 H Lab Interpretation (test code = Abnormal 08451-0) [facility] GLUCOSE (AUTOMATED)2022-08-29 16:16:36 Test Item Value Reference Range Interpretation Comments POCT GLU (test code = 1905843458) 139 mg/dL 70-110 H Lab Interpretation (test code = Abnormal 59368-4) [facility] GLUCOSE (AUTOMATED)2022-08-29 15:08:34 Test Item Value Reference Range Interpretation Comments POCT GLU (test code = 5395111021) 159 mg/dL 70-110 H Lab Interpretation (test code = Abnormal 68615-9) [facility] GLUCOSE (AUTOMATED)2022-08-29 14:18:05 Test Item Value Reference Range Interpretation Comments POCT GLU (test code = 6410157093) 147 mg/dL 70-110 H Lab Interpretation (test code = Abnormal 28834-9) [facility] GLUCOSE (AUTOMATED)2022-08-29 13:22:04 Test Item Value Reference Range Interpretation Comments POCT GLU (test code = 4699912727) 151 mg/dL 70-110 H Lab Interpretation (test code = Abnormal 52656-8) [facility] GLUCOSE (AUTOMATED)2022-08-29 12:11:27 Test Item Value Reference Range Interpretation Comments POCT GLU (test code = 9347735400) 163 mg/dL 70-110 H Lab Interpretation (test code = Abnormal 91620-5) [facility] GLUCOSE (AUTOMATED)2022-08-29 10:58:04 Test Item Value Reference Range Interpretation Comments POCT GLU (test code = 0088790693) 162 mg/dL 70-110 H Lab Interpretation (test code = Abnormal 55552-6) [facility] GLUCOSE (AUTOMATED)2022-08-29 10:03:25 Test Item Value Reference Range Interpretation Comments POCT GLU (test code = 9795139406) 184 mg/dL 70-110 H Lab Interpretation (test code = Abnormal 19605-9) [facility] GLUCOSE (AUTOMATED)2022-08-29 09:10:58 Test Item Value Reference Range Interpretation Comments POCT GLU (test code = 8512849308) 176 mg/dL 70-110 H Lab Interpretation (test code = Abnormal 97032-2) [facility] GLUCOSE (AUTOMATED)2022-08-29 08:04:18 Test Item Value Reference Range Interpretation Comments POCT GLU (test code = 4404587172) 158 mg/dL 70-110 H Lab Interpretation (test code = Abnormal 99084-7) [facility] GLUCOSE (AUTOMATED)2022-08-29 07:09:28 Test Item Value Reference Range Interpretation Comments POCT GLU (test code = 9007709472) 137 mg/dL 70-110 H Lab Interpretation (test code = Abnormal 11246-7) [facility] GLUCOSE (AUTOMATED)2022-08-29 06:07:41 Test Item Value Reference Range Interpretation Comments POCT GLU (test code = 3946940572) 136 mg/dL 70-110 H Lab Interpretation (test code = Abnormal 59377-0) [facility] GLUCOSE (AUTOMATED)2022-08-29 05:12:21 Test Item Value Reference Range Interpretation Comments POCT GLU (test code = 4543705485) 151 mg/dL 70-110 H Lab Interpretation (test code = Abnormal 70590-0) [facility] GLUCOSE (AUTOMATED)2022-08-29 04:11:30 Test Item Value Reference Range Interpretation Comments POCT GLU (test code = 8952044419) 166 mg/dL 70-110 H Lab Interpretation (test code = Abnormal 13329-0) [facility] GLUCOSE (AUTOMATED)2022-08-29 03:21:25 Test Item Value Reference Range Interpretation Comments POCT GLU (test code = 8920289632) 185 mg/dL 70-110 H Lab Interpretation (test code = Abnormal 09372-9) [facility] GLUCOSE (AUTOMATED)2022-08-29 02:13:24 Test Item Value Reference Range Interpretation Comments POCT GLU (test code = 4368119600) 139 mg/dL 70-110 H Lab Interpretation (test code = Abnormal 36107-2) [facility] GLUCOSE (AUTOMATED)2022-08-29 01:03:43 Test Item Value Reference Range Interpretation Comments POCT GLU (test code = 2355213127) 144 mg/dL 70-110 H Lab Interpretation (test code = Abnormal 72743-5) [facility] GLUCOSE (AUTOMATED)2022-08-29 00:27:52 Test Item Value Reference Range Interpretation Comments POCT GLU (test code = 1852319105) 193 mg/dL 70-110 H Lab Interpretation (test code = Abnormal 41264-6) [facility] GLUCOSE (AUTOMATED)2022-08-28 23:18:19 Test Item Value Reference Range Interpretation Comments POCT GLU (test code = 1503933343) 162 mg/dL 70-110 H Lab Interpretation (test code = Abnormal 00806-0) [facility] GLUCOSE (AUTOMATED)2022-08-28 22:25:29 Test Item Value Reference Range Interpretation Comments POCT GLU (test code = 5543015020) 163 mg/dL 70-110 H Lab Interpretation (test code = Abnormal 18521-9) [facility] GLUCOSE (AUTOMATED)2022-08-28 21:06:41 Test Item Value Reference Range Interpretation Comments POCT GLU (test code = 1678908991) 179 mg/dL 70-110 H Lab Interpretation (test code = Abnormal 26582-0) [facility] GLUCOSE (AUTOMATED)2022-08-28 20:08:24 Test Item Value Reference Range Interpretation Comments POCT GLU (test code = 3390388362) 159 mg/dL 70-110 H Lab Interpretation (test code = Abnormal 85959-1) [facility] GLUCOSE (AUTOMATED)2022-08-28 19:08:09 Test Item Value Reference Range Interpretation Comments POCT GLU (test code = 8291356957) 129 mg/dL 70-110 H Lab Interpretation (test code = Abnormal 73605-2) [facility] GLUCOSE (AUTOMATED)2022-08-28 18:16:18 Test Item Value Reference Range Interpretation Comments POCT GLU (test code = 8976929771) 106 mg/dL 70-110 Lab Interpretation (test code = Normal 22912-1) [facility] GLUCOSE (AUTOMATED)2022-08-28 17:06:55 Test Item Value Reference Range Interpretation Comments POCT GLU (test code = 4518559844) 136 mg/dL 70-110 H Lab Interpretation (test code = Abnormal 93932-9) [facility] GLUCOSE (AUTOMATED)2022-08-28 16:05:13 Test Item Value Reference Range Interpretation Comments POCT GLU (test code = 9637107561) 141 mg/dL 70-110 H Lab Interpretation (test code = Abnormal 65072-7) [facility] GLUCOSE (AUTOMATED)2022-08-28 15:04:57 Test Item Value Reference Range Interpretation Comments POCT GLU (test code = 3316817123) 168 mg/dL 70-110 H Lab Interpretation (test code = Abnormal 02744-6) [facility] GLUCOSE (AUTOMATED)2022-08-28 14:10:31 Test Item Value Reference Range Interpretation Comments POCT GLU (test code = 2873086318) 163 mg/dL 70-110 H Lab Interpretation (test code = Abnormal 39103-2) [facility] GLUCOSE (AUTOMATED)2022-08-28 13:07:27 Test Item Value Reference Range Interpretation Comments POCT GLU (test code = 0822687831) 133 mg/dL 70-110 H Lab Interpretation (test code = Abnormal 46245-1) [facility] GLUCOSE (AUTOMATED)2022-08-28 12:32:10 Test Item Value Reference Range Interpretation Comments POCT GLU (test code = 8491615110) 150 mg/dL 70-110 H Lab Interpretation (test code = Abnormal 50437-4) [facility] 12:14:56 Test Item Value Reference Range Interpretation Comments TRIG (test code = 1059142473) 1527 mg/dL 30-170 H Lab Interpretation (test code = Abnormal 01534-9) [facility] (NA, K, CL, CO2, GLUCOSE, BUN, CREATININE, CA)2022-08-28 12:02:28 Test Item Value Reference Range Interpretation Comments NA (test code = 137 mmol/L 135-145 7904453839) K (test code = 4.0 mmol/L 3.5-5.0 5521942063) CL (test code = 112 mmol/L 98-108 H 6688700449) CO2 TOTAL (test code = 19 mmol/L 23-31 L 5931406914) AGAP (test code = 6 2-16 7773989276) BUN (test code = 9 mg/dL 7-23 7578049790) GLUCOSE (test code = 157 mg/dL 70-110 H 4594954337) CREATININE (test code = 0.53 mg/dL 0.50-1.04 9514589675) CALCIUM (test code = 7.2 mg/dL 8.6-10.6 L 9848048639) eGFR (test code = 125.3 mL/min/1.73m2 2212891267) CALVIN (test code = CALVIN) Association of [...] tests). Lab Interpretation Abnormal (test code = 90020-7) [facility] GLUCOSE (AUTOMATED)2022-08-28 11:34:27 Test Item Value Reference Range Interpretation Comments POCT GLU (test code = 2525317871) 139 mg/dL 70-110 H Lab Interpretation (test code = Abnormal 28537-8) [facility] GLUCOSE (AUTOMATED)2022-08-28 10:08:58 Test Item Value Reference Range Interpretation Comments POCT GLU (test code = 3338295517) 159 mg/dL 70-110 H Lab Interpretation (test code = Abnormal 55929-0) [facility] GLUCOSE (AUTOMATED)2022-08-28 09:03:44 Test Item Value Reference Range Interpretation Comments POCT GLU (test code = 5710347284) 138 mg/dL 70-110 H Lab Interpretation (test code = Abnormal 22474-0) [facility] GLUCOSE (AUTOMATED)2022-08-28 08:09:23 Test Item Value Reference Range Interpretation Comments POCT GLU (test code = 5211075719) 134 mg/dL 70-110 H Lab Interpretation (test code = Abnormal 39333-6) [facility] GLUCOSE (AUTOMATED)2022-08-28 06:02:02 Test Item Value Reference Range Interpretation Comments POCT GLU (test code = 7192574707) 159 mg/dL 70-110 H Lab Interpretation (test code = Abnormal 34229-6) [facility]28 05:07:18 Test Item Value Reference Range Interpretation Comments POCT GLU (test code = 1389233759) 132 mg/dL 70-110 H Lab Interpretation (test code = Abnormal 42298-6) [facility] GLUCOSE (AUTOMATED)2022-08-28 04:03:46 Test Item Value Reference Range Interpretation Comments POCT GLU (test code = 9863259256) 132 mg/dL 70-110 H Lab Interpretation (test code = Abnormal 46906-5) [facility] GLUCOSE (AUTOMATED)2022-08-28 03:06:02 Test Item Value Reference Range Interpretation Comments POCT GLU (test code = 0595681858) 161 mg/dL 70-110 H Lab Interpretation (test code = Abnormal 76603-5) [facility] GLUCOSE (AUTOMATED)2022-08-28 02:11:59 Test Item Value Reference Range Interpretation Comments POCT GLU (test code = 2686971164) 152 mg/dL 70-110 H Lab Interpretation (test code = Abnormal 26991-9) [facility] GLUCOSE (AUTOMATED)2022-08-28 01:13:55 Test Item Value Reference Range Interpretation Comments POCT GLU (test code = 4249451456) 154 mg/dL 70-110 H Lab Interpretation (test code = Abnormal 79221-5) [facility] GLUCOSE (AUTOMATED)2022-08-28 00:04:53 Test Item Value Reference Range Interpretation Comments POCT GLU (test code = 5140636633) 171 mg/dL 70-110 H Lab Interpretation (test code = Abnormal 68600-5) [facility] GLUCOSE (AUTOMATED)2022-08-27 23:36:39 Test Item Value Reference Range Interpretation Comments POCT GLU (test code = 2036623038) 192 mg/dL 70-110 H Lab Interpretation (test code = Abnormal 05696-6) [facility] GLUCOSE (AUTOMATED)2022-08-27 22:12:56 Test Item Value Reference Range Interpretation Comments POCT GLU (test code = 2625857392) 209 mg/dL 70-110 H Lab Interpretation (test code = Abnormal 92201-6) [facility] GLUCOSE (AUTOMATED)2022-08-27 21:04:44 Test Item Value Reference Range Interpretation Comments POCT GLU (test code = 4301725279) 173 mg/dL 70-110 H Lab Interpretation (test code = Abnormal 25645-7) [facility] GLUCOSE (AUTOMATED)2022-08-27 20:46:25 Test Item Value Reference Range Interpretation Comments POCT GLU (test code = 8881344672) 104 mg/dL 70-110 Lab Interpretation (test code = Normal 19283-6) [facility] GLUCOSE (AUTOMATED)2022-08-27 19:02:38 Test Item Value Reference Range Interpretation Comments POCT GLU (test code = 1946677028) 156 mg/dL 70-110 H Lab Interpretation (test code = Abnormal 22205-1) [facility] GLUCOSE (AUTOMATED)2022-08-27 18:04:27 Test Item Value Reference Range Interpretation Comments POCT GLU (test code = 9659779320) 146 mg/dL 70-110 H Lab Interpretation (test code = Abnormal 38580-6) [facility] GLUCOSE (AUTOMATED)2022-08-27 17:01:16 Test Item Value Reference Range Interpretation Comments POCT GLU (test code = 0476805771) 152 mg/dL 70-110 H Lab Interpretation (test code = Abnormal 06896-2) [facility] GLUCOSE (AUTOMATED)2022-08-27 16:14:54 Test Item Value Reference Range Interpretation Comments POCT GLU (test code = 8273459881) 173 mg/dL 70-110 H Lab Interpretation (test code = Abnormal 11696-4) [facility] GLUCOSE (AUTOMATED)2022-08-27 15:15:33 Test Item Value Reference Range Interpretation Comments POCT GLU (test code = 0108842817) 128 mg/dL 70-110 H Lab Interpretation (test code = Abnormal 90409-6) [facility] GLUCOSE (AUTOMATED)2022-08-27 14:21:55 Test Item Value Reference Range Interpretation Comments POCT GLU (test code = 4465388662) 128 mg/dL 70-110 H Lab Interpretation (test code = Abnormal 49562-8) [facility] GLUCOSE (AUTOMATED)2022-08-27 13:24:52 Test Item Value Reference Range Interpretation Comments POCT GLU (test code = 4940695855) 140 mg/dL 70-110 H Lab Interpretation (test code = Abnormal 67992-2) [facility] GLUCOSE (AUTOMATED)2022-08-27 12:09:47 Test Item Value Reference Range Interpretation Comments POCT GLU (test code = 4002006975) 167 mg/dL 70-110 H Lab Interpretation (test code = Abnormal 15357-1) [facility] GLUCOSE (AUTOMATED)2022-08-27 11:09:03 Test Item Value Reference Range Interpretation Comments POCT GLU (test code = 5347640610) 148 mg/dL 70-110 H Lab Interpretation (test code = Abnormal 41428-4) [facility] GLUCOSE (AUTOMATED)2022-08-27 10:16:49 Test Item Value Reference Range Interpretation Comments POCT GLU (test code = 7655781660) 129 mg/dL 70-110 H Lab Interpretation (test code = Abnormal 12220-9) [facility] GLUCOSE (AUTOMATED)2022-08-27 09:21:11 Test Item Value Reference Range Interpretation Comments POCT GLU (test code = 7351390826) 145 mg/dL 70-110 H Lab Interpretation (test code = Abnormal 79025-2) [facility] GLUCOSE (AUTOMATED)2022-08-27 07:01:10 Test Item Value Reference Range Interpretation Comments POCT GLU (test code = 9338634549) 126 mg/dL 70-110 H Lab Interpretation (test code = Abnormal 01330-9) [facility] GLUCOSE (AUTOMATED)2022-08-27 06:14:53 Test Item Value Reference Range Interpretation Comments POCT GLU (test code = 6720632332) 154 mg/dL 70-110 H Lab Interpretation (test code = Abnormal 13177-4) [facility]57 Test Item Value Reference Range Interpretation Comments LIPASE (test code = 0252838676) 197 U/L 0-220 Lab Interpretation (test code = Normal 91791-7) [facility] GLUCOSE (AUTOMATED)2022-08-27 05:13:21 Test Item Value Reference Range Interpretation Comments POCT GLU (test code = 0124584625) 163 mg/dL 70-110 H Lab Interpretation (test code = Abnormal 96640-3) [facility]IPOPROTEIN, [id number] 04:16:58 Test Item Value Reference Range Interpretation Comments dLDL Chol (test code = 11365-3) 63 mg/dL <=130 Lab Interpretation (test code = Normal 92586-1) [facility]MOL[facility]ITY, SERUM OR [id number] 04:12:04 Test Item Value Reference Range Interpretation Comments OSMOLALITY (test code = 319 See_Comment H [Au tomated message] 6112-2) The system [employer] generated this result transmitted ref erence range: 278 - 30 5 mOsm/kg. The reference range was not used to int erpret this result as normal/abnormal . Lab Interpretation (test Abnormal code = 00710-9) [facility] GLUCOSE (AUTOMATED)2022-08-27 03:17:19 Test Item Value Reference Range Interpretation Comments POCT GLU (test code = 3241333823) 244 mg/dL 70-110 H Lab Interpretation (test code = Abnormal 00040-8) [facility] (NA, K, CL, CO2, GLUCOSE, BUN, CREATININE, CA)2022-08-27 02:55:11 Test Item Value Reference Range Interpretation Comments NA (test code = 134 mmol/L 135-145 L 1990166917) K (test code = 4.3 mmol/L 3.5-5.0 6244181157) CL (test code = 103 mmol/L 98-108 4888630893) CO2 TOTAL (test code = 19 mmol/L 23-31 L 5486740145) AGAP (test code = 12 2-16 1766870691) BUN (test code = 25 mg/dL 7-23 H 8482138084) GLUCOSE (test code = 277 mg/dL 70-110 H 3546235192) CREATININE (test code = 0.77 mg/dL 0.50-1.04 2033724374) CALCIUM (test code = 8.2 mg/dL 8.6-10.6 L 9334441491) eGFR (test code = 81.4 mL/min/1.73m2 6437293306) CALVIN (test code = CALVIN) Association of [...] tests). Lab Interpretation Abnormal (test code = 82015-6) [facility] GLUCOSE (AUTOMATED)2022-08-27 02:03:06 Test Item Value Reference Range Interpretation Comments POCT GLU (test code = 7469909894) 322 mg/dL 70-110 H Lab Interpretation (test code = Abnormal 47853-6) [facility] GLUCOSE (AUTOMATED)2022-08-27 01:25:59 Test Item Value Reference Range Interpretation Comments POCT GLU (test code = 1279431437) 324 mg/dL 70-110 H Lab Interpretation (test code = Abnormal 31679-7) [facility] GLUCOSE (AUTOMATED)2022-08-27 00:32:23 Test Item Value Reference Range Interpretation Comments POCT GLU (test code = 1881871776) 372 mg/dL 70-110 H Lab Interpretation (test code = Abnormal 90585-8) [facility] GLUCOSE (AUTOMATED)2022-08-27 00:00:02 Test Item Value Reference Range Interpretation Comments POCT GLU (test code = 2066005256) 382 mg/dL 70-110 H Lab Interpretation (test code = Abnormal 27265-9) [facility] GLUCOSE (AUTOMATED)2022-08-26 23:10:50 Test Item Value Reference Range Interpretation Comments POCT GLU (test code = 5885102588) 409 mg/dL 70-110 H Lab Interpretation (test code = Abnormal 46077-5) [facility] Hospital[facility] (50401)(TOTAL CHOLESTEROL, TRIGLYCERIDES, HDL)2022-08-26 22:34:41 Test Item Value Reference Range Interpretation Comments CHOL (test code = 381 mg/dL 120-200 H 5022085336) HDL (test code = 25 mg/dL >=50 L 6073689687) HDLC RATIO (test code = 15.2 <=4.5 H 1304437025) TRIG (test code = 30-170 H 3027510585) LDL CHOL (test code = Unable to calculate 16635-4) LDL due to elev ated triglyceride le jossy greater than 40 0 mg/dL. VLDL (test code = Unable to calculate 7950709258) VLDL due to [place] vated triglyceride le jossy greater than 71 0 mg/dL. Lab Interpretation Abnormal (test code = 23619-8) [facility] GLUCOSE (AUTOMATED)2022-08-26 22:11:52 Test Item Value Reference Range Interpretation Comments POCT GLU (test code = 1895341276) 375 mg/dL 70-110 H Lab Interpretation (test code = Abnormal 52878-6) [facility]COMP[facility]OLIC PANEL (35926)2022-08-26 22:06:45 Test Item Value Reference Range Interpretation Comments NA (test code = 131 mmol/L 135-145 L 9179031456) K (test code = 5.4 mmol/L 3.5-5.0 H 7157871612) CL (test code = 95 mmol/L 98-108 L 9701785901) CO2 TOTAL (test code = 9 mmol/L 23-31 L 1170135884) AGAP (test code = 27 2-16 H 9017321415) BUN (test code = 29 mg/dL 7-23 H 0188414589) GLUCOSE (test code = 444 mg/dL 70-110 H 9809499871) CREATININE (test code = 1.01 mg/dL 0.50-1.04 8264723789) TOTAL BILI (test code = 0.9 mg/dL 0.1-1.0 4140770647) CALCIUM (test code = 9.2 mg/dL 8.6-10.6 2734463350) T PROTEIN (test code = 9.4 g/dL 6.3-8.2 H 8875320998) ALBUMIN (test code = 4.8 g/dL 3.5-5.0 8720950282) ALK PHOS (test code = 79 U/L 34-122 8245409319) ALTv (test code = 43 U/L 5-35 H 1742-6) AST(SGOT) (test code = 42 U/L 13-40 H 8552322043) eGFR (test code = 59.5 mL/min/1.73m2 4776040434) CALVIN (test code = CALVIN) Association of [...] tests). Lab Interpretation Abnormal (test code = 99966-9) [facility] 22:02:31 Test Item Value Reference Range Interpretation Comments MAGNESIUM (test code = 9000575716) 1.7 mg/dL 1.7-2.4 Lab Interpretation (test code = Normal 39302-9) [facility] WITH [id number] 21:22:43 Test Item Value Reference Range Interpretation Comments WBC (test code = 9.75 See_Comment [Automated 4490-2) message] The sy stem which generated this result transmitted reference range : 4.30 - 11.10 10*3/?L. The reference range was not used to interpret this result as normal/abnormal . RBC (test code = 4.71 See_Comment [Automated 669-8) message] The sy stem which generated this [...] RDW-SD (test code = 43.3 fL 39.0-49.9 47652-4) RDW-CV (test code = 14.4 % 12.0-15.5 788-0) PLT (test code = 371 See_Comment H [Automated 007-3) message] The sy stem which generated this result transmitted reference range : 166 - 358 10*3/ ?L. The reference r doretha was not used to interpret this result as normal/abnormal . MPV (test code = 10.2 fL 9.5-12.9 27951-0) NRBC/100 WBC (test 0.0 See_Comment [Automat ed code = 8620401112) message] The system which generated this result transmitted reference range : 0.0 - 10.0 /100 WBCs. The refer ence range was not u sed to interpret th is result as normal/abnormal . NRBC x10^3 (test code See_Comment [Auto mated = 7671658949) message] The s ystem which generated this result transmitted reference range : 10*3/?L. The reference range was not used to interpret this result as normal/abnormal . GRAN MAT (NEUT) % 52.7 % (test code = 770-8) IMM GRAN % (test code 1.10 % = 3423631294) LYMPH % (test code = 36.6 % 736-9) MONO % (test code = 6.5 % 5905-5) EOS % (test code = 1.6 % 713-8) BASO % (test code = 1.5 % 706-2) GRAN MAT x10^3(ANC) 5.13 10*3/uL 1.88-7.09 (test code = 3888982962) IMM GRAN x10^3 (test 0.11 10*3/uL 0.00-0.06 H code = 4965650040) LYMPH x10^3 (test code 3.57 10*3/uL 1.32-3.29 H = 731-0) MONO x10^3 (test code 0.63 10*3/uL 0.33-0.92 = 742-7) EOS x10^3 (test code = 0.16 10*3/uL 0.03-0.39 711-2) BASO x10^3 (test code 0.15 10*3/uL 0.01-0.07 H = 704-7) Lab Interpretation Abnormal (test code = 85827-0) [facility]22-08-26 20:35:54 Test Item Value Reference Range Interpretation Comments POCT GLU (test code = 6072329828) 400 mg/dL 70-110 H Lab Interpretation (test code = Abnormal 08139-8) [facility] Metabolic Panel (Na, K, Cl, CO2, Glucose, BUN, Creatinine, Ca)2022-06-22 03:47:00 Test Item Value Reference Range Interpretation Comments NA (test code = 136 mmol/L 135-145 5821878449) K (test code = 3.8 mmol/L 3.5-5.0 1213504441) CL (test code = 97 mmol/L 98-108 L 4393876621) CO2 TOTAL (test code = 24 mmol/L 23-31 3023978842) AGAP (test code = 2-16 0133232190) BUN (test code = 34 mg/dL 7-23 H 5397287394) GLUCOSE (test code = 270 mg/dL 70-110 H 8985930791) CREATININE (test code = 0.93 mg/dL 0.50-1.04 7001508043) CALCIUM (test code = 10.6 mg/dL 8.6-10.6 5332483020) eGFR (test code = mL/min/1.73m2 8094498881) CALVIN (test code = CALVIN) Association of [...] tests). Lab Interpretation Abnormal (test code = 85425-9) [facility] GLUCOSE (AUTOMATED)2022-06-22 03:46:00 Test Item Value Reference Range Interpretation Comments POCT GLU (test code = 7322339893) 256 mg/dL 70-110 H Lab Interpretation (test code = Abnormal 66778-1) [facility] HospitalGlycosylated Hemoglobin (A1C)2022-06-22 03:08:04 Test Item Value Reference Range Interpretation Comments HGB A1C (test code = 12.0 % 4.0-5.7 H 4548-4) CALVIN (test code = CALVIN) Reference RangesNormal: <5.7%Prediabetes: 5.7 - 6.4%Diabetes: > 6.5% Lab Interpretation (test Abnormal code = 26027-0) [facility] GLUCOSE (AUTOMATED)2022-06-22 02:44:02 Test Item Value Reference Range Interpretation Comments POCT GLU (test code = 6858698514) 265 mg/dL 70-110 H Lab Interpretation (test code = Abnormal 90073-7) [facility] GLUCOSE(AGE >30DAYS)2022-06-22 02:39:00 Test Item Value Reference Range Interpretation Comments POCT Glu (age>30days) (test code = 265 mg/dL 70-110 A 3342) Lab Interpretation (test code = Abnormal 00833-6) [facility] HospitalMagnesium [id number] 02:25:21 Test Item Value Reference Range Interpretation Comments MAGNESIUM (test code = 6669586086) 1.5 mg/dL 1.7-2.4 L Lab Interpretation (test code = Abnormal 52688-4) [facility] HospitalPhosphorus [id number] 02:25:01 Test Item Value Reference Range Interpretation Comments PHOSPHORUS (test code = 7005343549) 5.7 mg/dL 2.5-5.0 H Lab Interpretation (test code = Abnormal 00784-9) [facility] GLUCOSE (AUTOMATED)2022-06-22 01:44:15 Test Item Value Reference Range Interpretation Comments POCT GLU (test code = 6460823525) 298 mg/dL 70-110 H Lab Interpretation (test code = Abnormal 29428-3) [facility] WITH [id number] 01:28:41 Test Item Value Reference Range Interpretation [...] (test code = 37.1 fL 39.0-49.9 L 87747-7) RDW-CV (test code = 12.5 % 12.0-15.5 788-0) PLT (test code = See_Comment [Automated 777-3) message] The sy stem which generated this result transmitted reference range : 166 - 358 10*3/ ?L. The reference r doretha was not used to interpret this result as normal/abnormal . MPV (test code = 9.9 fL 9.5-12.9 60486-7) NRBC/100 WBC (test See_Comment [Automat ed code = 5352071489) message] The system which generated this result transmitted reference range : 0.0 - 10.0 /100 WBCs. The refer ence range was not u sed to interpret th is result as normal/abnormal . NRBC x10^3 (test code See_Comment [Auto mated = 7558875196) message] The s ystem which generated this result transmitted reference range : 10*3/?L. The reference range was not used to interpret this result as normal/abnormal . GRAN MAT (NEUT) % 40.5 % (test code = 770-8) IMM GRAN % (test code 0.90 % = 9614541935) LYMPH % (test code = 48.0 % 736-9) MONO % (test code = 8.5 % 5905-5) EOS % (test code = 1.1 % 713-8) BASO % (test code = 1.0 % 706-2) GRAN MAT x10^3(ANC) 4.35 10*3/uL 1.88-7.09 (test code = 1029168575) IMM GRAN x10^3 (test 0.10 10*3/uL 0.00-0.06 H code = 4453042526) LYMPH x10^3 (test code 5.17 10*3/uL 1.32-3.29 H = 731-0) MONO x10^3 (test code 0.92 10*3/uL 0.33-0.92 = 742-7) EOS x10^3 (test code = 0.12 10*3/uL 0.03-0.39 711-2) BASO x10^3 (test code 0.11 10*3/uL 0.01-0.07 H = 704-7) Lab Interpretation Abnormal (test code = 15474-5) [facility] HospitalEUNICENathan [id number] 00:34:27 Test Item Value Reference Interpretation Comments Range TROPONIN I (test 0.000 ng/mL See_Comment [Automated code = 0408750781) message] The system which generated this result [...] biotin. Lab Interpretation Normal (test code = 85690-9) [facility] HospitalN-TERMINAL [id number] 00:31:09 Test Item Value Reference Range Interpretation Comments NT-proBNP (test code 21 pg/mL See_Comment [Autom ated = 2396084973) message] The system which generated this result transmitted reference range : <=125. The reference range was not used to interpret this result as normal/abnormal . CALVIN (test code = CALVIN) Biotin has been reported to cause a negative bias, interpret results relative to patient's use of biotin. Lab Interpretation Normal (test code = 77862-5) [facility] HospitalBASI METABOLIC PANEL (NA, K, CL, CO2, GLUCOSE, BUN, CREATININE, CA)2022-06-22 00:22:03 Test Item Value Reference Range Interpretation Comments NA (test code = 133 mmol/L 135-145 L 7435755043) K (test code = 4.7 mmol/L 3.5-5.0 5845892528) CL (test code = 91 mmol/L 98-108 L 6145114955) CO2 TOTAL (test code = 24 mmol/L 23-31 9108822555) AGAP (test code = 2-16 H 7999468524) BUN (test code = 37 mg/dL 7-23 H 2175234137) GLUCOSE (test code = 385 mg/dL 70-110 H 0942521406) CREATININE (test code = 1.09 mg/dL 0.50-1.04 H 4844979054) CALCIUM (test code = 11.5 mg/dL 8.6-10.6 H 8503247742) eGFR (test code = mL/min/1.73m2 3036854436) CALVIN (test code = CALVIN) Association of [...] tests). Lab Interpretation Abnormal (test code = 64660-7) [facility] HospitalCOMPREHENSIVE METABOLIC [id number] 00:00:00 Test Item Value Reference Range Interpretation Comments GLUCOSE (test code = 2217) 259 MG/DL BUN (test code = 2208) 17 MG/DL CREATININE (test code = 2214) 0.72 MG/DL eGFR (2020 CKD-EPI) (test 106 ML/MIN/1.73 code = 81424) CALC BUN/CREAT (test code = 24 RATIO [...] code = 2219) 38 U/L COMPREHENSIVE METABOLIC [id number] 00:00:00 Test Item Value Reference Range Interpretation Comments GLUCOSE (test code = 2217) 259 MG/DL BUN (test code = 2208) 17 MG/DL CREATININE (test code = 2214) 0.72 MG/DL eGFR (2020 CKD-EPI) (test 106 ML/MIN/1.73 code = 13688) CALC BUN/CREAT (test code = 24 RATIO [...] (test code = 2219) 38 U/L LIPID [id number] 00:00:00 Test Item Value Reference Range Interpretation Comments CHOLESTEROL (test code = 2210) 196 MG/DL TRIGLYCERIDES (test code = 2232) 500 MG/DL HDL CHOLESTEROL (test code = 31 MG/DL 2220) CALC LDL CHOL (test code = 2237) (NOTE) MG/DL RISK RATIO LDL/HDL (test code = (NOTE) RATIO 2238) LIPID [id number] 00:00:00 Test Item Value Reference Range Interpretation Comments CHOLESTEROL (test code = 2210) 196 MG/DL TRIGLYCERIDES (test code = 2232) 500 MG/DL HDL CHOLESTEROL (test code = 31 MG/DL 2220) CALC LDL CHOL (test code = 2237) (NOTE) MG/DL RISK RATIO LDL/HDL (test code = (NOTE) RATIO 2238) HEMOGLOBIN [id number] 00:00:00 Test Item Value Reference Range Interpretation Comments HEMOGLOBIN A1c (test code = 77808) 11.0 % HEMOGLOBIN [id number] 00:00:00 Test Item Value Reference Range Interpretation Comments HEMOGLOBIN A1c (test code = 57639) 11.0 % HEMOGLOBIN [id number] 00:00:00 Test Item Value Reference Range Interpretation Comments HEMOGLOBIN A1c (test code = 17848) 11.0 % COMPREHENSIVE METABOLIC [id number] 00:00:00 Test Item Value Reference Range Interpretation Comments GLUCOSE (test code = 2217) 259 MG/DL BUN (test code = 2208) 17 MG/DL CREATININE (test code = 2214) 0.72 MG/DL eGFR (2020 CKD-EPI) (test 106 ML/MIN/1.73 code = 86657) CALC BUN/CREAT (test code = 24 RATIO [...] code = 2219) 38 U/L COMPREHENSIVE METABOLIC [id number] 00:00:00 Test Item Value Reference Range Interpretation Comments GLUCOSE (test code = 2217) 259 MG/DL BUN (test code = 2208) 17 MG/DL CREATININE (test code = 2214) 0.72 MG/DL eGFR (2020 CKD-EPI) (test 106 ML/MIN/1.73 code = 47037) CALC BUN/CREAT (test code = 24 RATIO [...] (test code = 2219) 38 U/L LIPID [id number] 00:00:00 Test Item Value Reference Range Interpretation Comments CHOLESTEROL (test code = 2210) 196 MG/DL TRIGLYCERIDES (test code = 2232) 500 MG/DL HDL CHOLESTEROL (test code = 31 MG/DL 2220) CALC LDL CHOL (test code = 2237) (NOTE) MG/DL RISK RATIO LDL/HDL (test code = (NOTE) RATIO 2238) LIPID [id number] 00:00:00 Test Item Value Reference Range Interpretation Comments CHOLESTEROL (test code = 2210) 196 MG/DL TRIGLYCERIDES (test code = 2232) 500 MG/DL HDL CHOLESTEROL (test code = 31 MG/DL 2220) CALC LDL CHOL (test code = 2237) (NOTE) MG/DL RISK RATIO LDL/HDL (test code = (NOTE) RATIO 2238) HEMOGLOBIN [id number] 00:00:00 Test Item Value Reference Range Interpretation Comments HEMOGLOBIN A1c (test code = 40502) 11.0 % HEMOGLOBIN [id number] 00:00:00 Test Item Value Reference Range Interpretation Comments HEMOGLOBIN A1c (test code = 11106) 11.0 % HEMOGLOBIN [id number] 00:00:00 Test Item Value Reference Range Interpretation Comments HEMOGLOBIN A1c (test code = 77692) 11.0 % COMPREHENSIVE METABOLIC [id number] 00:00:00 Test Item Value Reference Range Interpretation Comments GLUCOSE (test code = 2217) 259 MG/DL BUN (test code = 2208) 17 MG/DL CREATININE (test code = 2214) 0.72 MG/DL eGFR (2020 CKD-EPI) (test 106 ML/MIN/1.73 code = 15357) CALC BUN/CREAT (test code = 24 RATIO [...] code = 2219) 38 U/L COMPREHENSIVE METABOLIC [id number] 00:00:00 Test Item Value Reference Range Interpretation Comments GLUCOSE (test code = 2217) 259 MG/DL BUN (test code = 2208) 17 MG/DL CREATININE (test code = 2214) 0.72 MG/DL eGFR (2020 CKD-EPI) (test 106 ML/MIN/1.73 code = 00727) CALC BUN/CREAT (test code = 24 RATIO [...] (test code = 2219) 38 U/L LIPID [id number] 00:00:00 Test Item Value Reference Range Interpretation Comments CHOLESTEROL (test code = 2210) 196 MG/DL TRIGLYCERIDES (test code = 2232) 500 MG/DL HDL CHOLESTEROL (test code = 31 MG/DL 2220) CALC LDL CHOL (test code = 2237) (NOTE) MG/DL RISK RATIO LDL/HDL (test code = (NOTE) RATIO 2238) LIPID [id number] 00:00:00 Test Item Value Reference Range Interpretation Comments CHOLESTEROL (test code = 2210) 196 MG/DL TRIGLYCERIDES (test code = 2232) 500 MG/DL HDL CHOLESTEROL (test code = 31 MG/DL 2220) CALC LDL CHOL (test code = 2237) (NOTE) MG/DL RISK RATIO LDL/HDL (test code = (NOTE) RATIO 2238) HEMOGLOBIN [id number] 00:00:00 Test Item Value Reference Range Interpretation Comments HEMOGLOBIN A1c (test code = 56855) 11.0 % HEMOGLOBIN [id number] 00:00:00 Test Item Value Reference Range Interpretation Comments HEMOGLOBIN A1c (test code = 86431) 11.0 % HEMOGLOBIN [id number] 00:00:00 Test Item Value Reference Range Interpretation Comments HEMOGLOBIN A1c (test code = 67444) 11.0 % COMPREHENSIVE METABOLIC [id number] 00:00:00 Test Item Value Reference Range Interpretation Comments GLUCOSE (test code = 2217) 259 MG/DL BUN (test code = 2208) 17 MG/DL CREATININE (test code = 2214) 0.72 MG/DL eGFR (2020 CKD-EPI) (test 106 ML/MIN/1.73 code = 86917) CALC BUN/CREAT (test code = 24 RATIO [...] code = 2219) 38 U/L COMPREHENSIVE METABOLIC [id number] 00:00:00 Test Item Value Reference Range Interpretation Comments GLUCOSE (test code = 2217) 259 MG/DL BUN (test code = 2208) 17 MG/DL CREATININE (test code = 2214) 0.72 MG/DL eGFR (2020 CKD-EPI) (test 106 ML/MIN/1.73 code = 19195) CALC BUN/CREAT (test code = 24 RATIO [...] (test code = 2219) 38 U/L LIPID [id number] 00:00:00 Test Item Value Reference Range Interpretation Comments CHOLESTEROL (test code = 2210) 196 MG/DL TRIGLYCERIDES (test code = 2232) 500 MG/DL HDL CHOLESTEROL (test code = 31 MG/DL 2220) CALC LDL CHOL (test code = 2237) (NOTE) MG/DL RISK RATIO LDL/HDL (test code = (NOTE) RATIO 2238) LIPID [id number] 00:00:00 Test Item Value Reference Range Interpretation Comments CHOLESTEROL (test code = 2210) 196 MG/DL TRIGLYCERIDES (test code = 2232) 500 MG/DL HDL CHOLESTEROL (test code = 31 MG/DL 2220) CALC LDL CHOL (test code = 2237) (NOTE) MG/DL RISK RATIO LDL/HDL (test code = (NOTE) RATIO 2238) HEMOGLOBIN [id number] 00:00:00 Test Item Value Reference Range Interpretation Comments HEMOGLOBIN A1c (test code = 97157) 11.0 % HEMOGLOBIN [id number] 00:00:00 Test Item Value Reference Range Interpretation Comments HEMOGLOBIN A1c (test code = 45522) 11.0 % HEMOGLOBIN [id number] 00:00:00 Test Item Value Reference Range Interpretation Comments HEMOGLOBIN A1c (test code = 63384) 11.0 % VAGINAL PATHOGENS DNA [id number] 15:33:03 Test Item Value Reference Range Interpretation Comments ANDIE SPECIES (test NEGATIVE NEGATIVE code = 06852) G. VAGINALIS (test NEGATIVE NEGATIVE code = 44888) T. VAGINALIS (test NEGATIVE NEGATIVE UNLESS O THERWISE code = 99592) INDICATED, ALL TESTING PERFORMED [facility] PATHOLOGY [facility] [address] [place] [address] 4 LABORATORY DIRE CTOR: NOAH TODD M.D. CLIA NUMBER [id number] [facility] [place]. [id number] VAGINAL PATHOGENS DNA [id number] 00:00:00 Test Item Value Reference Range Interpretation Comments ANDIE SPECIES (test code = 13994) NEGATIVE G. VAGINALIS (test code = 93365) NEGATIVE T. VAGINALIS (test code = 65242) NEGATIVE VAGINAL PATHOGENS DNA [id number] 00:00:00 Test Item Value Reference Range Interpretation Comments ANDIE SPECIES (test code = 04586) NEGATIVE G. VAGINALIS (test code = 85452) NEGATIVE T. VAGINALIS (test code = 86786) NEGATIVE VAGINAL PATHOGENS DNA [id number] 00:00:00 Test Item Value Reference Range Interpretation Comments ANDIE SPECIES (test code = 55298) NEGATIVE G. VAGINALIS (test code = 34023) NEGATIVE T. VAGINALIS (test code = 00267) NEGATIVE VAGINAL PATHOGENS DNA [id number] 00:00:00 Test Item Value Reference Range Interpretation Comments ANDIE SPECIES (test code = 49681) NEGATIVE G. VAGINALIS (test code = 05148) NEGATIVE T. VAGINALIS (test code = 29366) NEGATIVE VAGINAL PATHOGENS DNA [id number] 00:00:00 Test Item Value Reference Range Interpretation Comments ANDIE SPECIES (test code = 57157) NEGATIVE G. VAGINALIS (test code = 48055) NEGATIVE T. VAGINALIS (test code = 91859) NEGATIVE VAGINAL PATHOGENS DNA [id number] 00:00:00 Test Item Value Reference Range Interpretation Comments ANDIE SPECIES (test code = 98391) NEGATIVE G. VAGINALIS (test code = 17032) NEGATIVE T. VAGINALIS (test code = 12464) NEGATIVE VAGINAL PATHOGENS DNA [id number] 00:00:00 Test Item Value Reference Range Interpretation Comments ANDIE SPECIES (test code = ) NEGATIVE G. VAGINALIS (test code = 58002) NEGATIVE T. VAGINALIS (test code = 58831) NEGATIVE VAGINAL PATHOGENS DNA [id number] 00:00:00 Test Item Value Reference Range Interpretation Comments ANDIE SPECIES (test code = ) NEGATIVE G. VAGINALIS (test code = 00498) NEGATIVE T. VAGINALIS (test code = 86483) NEGATIVE VAGINAL PATHOGENS DNA [id number] 00:00:00 Test Item Value Reference Range Interpretation Comments ANDIE SPECIES (test code = ) NEGATIVE G. VAGINALIS (test code = 00896) NEGATIVE T. VAGINALIS (test code = ) NEGATIVE VAGINAL PATHOGENS DNA [id number] 00:00:00 Test Item Value Reference Range Interpretation Comments ANDIE SPECIES (test code = ) NEGATIVE G. VAGINALIS (test code = 22630) NEGATIVE T. VAGINALIS (test code = ) NEGATIVE CULTURE, [id number] 14:55:44SPECIMEN NUMBER: [id number] CULTURE, URINE SPECIMEN NUMBER: [id number] SPECIMEN COMMENT: URINE SOURCE:URINE REPORT STATUS: FINAL FINAL REPORT: 04/11/2022 <10,000 CFU/ML UROGENITAL NORMA PRESENT NO COM MON PATHOGENSCULTURE, [id number] 00:00:00 Test Item Value Reference Range Interpretation Comments CULTURE, URINE (test SPECIMEN NUMBER: code = 67450) [id number] CULTURE, [id number] 00:00:00 Test Item Value Reference Range Interpretation Comments CULTURE, URINE (test SPECIMEN NUMBER: code = 87625) [id number] CULTURE, [id number] 00:00:00 Test Item Value Reference Range Interpretation Comments CULTURE, URINE (test SPECIMEN NUMBER: code = 89138) [id number] CULTURE, [id number] 00:00:00 Test Item Value Reference Range Interpretation Comments CULTURE, URINE (test SPECIMEN NUMBER: code = 81776) [id number] CULTURE, [id number] 00:00:00 Test Item Value Reference Range Interpretation Comments CULTURE, URINE (test SPECIMEN NUMBER: code = 67539) [id number] CULTURE, [id number] 00:00:00 Test Item Value Reference Range Interpretation Comments CULTURE, URINE (test SPECIMEN NUMBER: code = 38730) [id number] CULTURE, [id number] 00:00:00 Test Item Value Reference Range Interpretation Comments CULTURE, URINE (test SPECIMEN NUMBER: code = 49626) [id number] CULTURE, [id number] 00:00:00 Test Item Value Reference Range Interpretation Comments CULTURE, URINE (test SPECIMEN NUMBER: code = 08795) [id number] CULTURE, [id number] 00:00:00 Test Item Value Reference Range Interpretation Comments CULTURE, URINE (test SPECIMEN NUMBER: code = 34730) [id number] CULTURE, [id number] 00:00:00 Test Item Value Reference Range Interpretation Comments CULTURE, URINE (test SPECIMEN NUMBER: code = 09609) [id number] CULTURE, [id number] 00:00:00 Test Item Value Reference Range Interpretation Comments CULTURE, URINE (test SPECIMEN NUMBER: code = 97953) [id number] CULTURE, [id number] 00:00:00 Test Item Value Reference Range Interpretation Comments CULTURE, URINE (test SPECIMEN NUMBER: code = 49787) [id number] CULTURE, [id number] 00:00:00 Test Item Value Reference Range Interpretation Comments CULTURE, URINE (test SPECIMEN NUMBER: code = 91058) [id number] CULTURE, [id number] 00:00:00 Test Item Value Reference Range Interpretation Comments CULTURE, URINE (test SPECIMEN NUMBER: code = 94348) [id number] CBC W/AUTO DIFF WITH [id number] 02:13:01 Test Item Value Reference Range Interpretation [...] message] code = 1065) WBC'S The system [employer] generated this result transmitted ref erence range: [...] 0.00-0.11 UNLESS O THERWISE (test code = 22378) INDICATE D, ALL TESTING PERFORM ED ATCLINICAL PATH [facility], [place]. [address] [place] [id number] [place] [address] DIRECTOR: NOAH DICKENS M.D. CLIA NUMBER [id number] CAP ACCREDITATION N O. [id number] CBC W/AUTO [id number] 00:00:00 Test Item Value Reference Range Interpretation [...] NUCLEATED RBCS (test code = 0.00 K/UL 08269) CBC W/AUTO [id number] 00:00:00 Test Item Value Reference Range Interpretation [...] NUCLEATED RBCS (test code = 0.00 K/UL 84776) CBC W/AUTO [id number] 00:00:00 Test Item Value Reference Range Interpretation [...] NUCLEATED RBCS (test code = 0.00 K/UL 60876) CBC W/AUTO [id number] 00:00:00 Test Item Value Reference Range Interpretation [...] NUCLEATED RBCS (test code = 0.00 K/UL 40833) CBC W/AUTO [id number] 00:00:00 Test Item Value Reference Range Interpretation [...] NUCLEATED RBCS (test code = 0.00 K/UL 59370) CBC W/AUTO [id number] 00:00:00 Test Item Value Reference Range Interpretation [...] NUCLEATED RBCS (test code = 0.00 K/UL 82082) CBC W/AUTO [id number] 00:00:00 Test Item Value Reference Range Interpretation [...] NUCLEATED RBCS (test code = 0.00 K/UL 08314) CBC W/AUTO [id number] 00:00:00 Test Item Value Reference Range Interpretation [...] NUCLEATED RBCS (test code = 0.00 K/UL 51979) CBC W/AUTO [id number] 00:00:00 Test Item Value Reference Range Interpretation [...] NUCLEATED RBCS (test code = 0.00 K/UL 37984) CBC W/AUTO [id number] 00:00:00 Test Item Value Reference Range Interpretation [...] NUCLEATED RBCS (test code = 0.00 K/UL 10279) CBC W/AUTO [id number] 00:00:00 Test Item Value Reference Range Interpretation [...] NUCLEATED RBCS (test code = 0.00 K/UL 48160) CBC W/AUTO [id number] 00:00:00 Test Item Value Reference Range Interpretation [...] NUCLEATED RBCS (test code = 0.00 K/UL 49298) CBC W/AUTO [id number] 00:00:00 Test Item Value Reference Range Interpretation [...] NUCLEATED RBCS (test code = 0.00 K/UL 88752) CBC W/AUTO [id number] 00:00:00 Test Item Value Reference Range Interpretation [...] NUCLEATED RBCS (test code = 0.00 K/UL 39637) CBC W/AUTO [id number] 00:00:00 Test Item Value Reference Range Interpretation [...] NUCLEATED RBCS (test code = 0.00 K/UL 01147) CBC W/AUTO [id number] 00:00:00 Test Item Value Reference Range Interpretation [...] NUCLEATED RBCS (test code = 0.00 K/UL 07272) CBC W/AUTO [id number] 00:00:00 Test Item Value Reference Range Interpretation [...] NUCLEATED RBCS (test code = 0.00 K/UL 76880) CBC W/AUTO [id number] 00:00:00 Test Item Value Reference Range Interpretation [...] NUCLEATED RBCS (test code = 0.00 K/UL 70634) CBC W/AUTO [id number] 00:00:00 Test Item Value Reference Range Interpretation [...] NUCLEATED RBCS (test code = 0.00 K/UL 74760) CBC W/AUTO [id number] 00:00:00 Test Item Value Reference Range Interpretation [...] NUCLEATED RBCS (test code = 0.00 K/UL 98214) CBC W/AUTO [id number] 00:00:00 Test Item Value Reference Range Interpretation [...] NUCLEATED RBCS (test code = 0.00 K/UL 72999) COMPREHENSIVE METABOLIC [id number] 04:26:32 Test Item Value Reference Range Interpretation Comments GLUCOSE (test code = 122 MG/DL 70-99 H 2216) BUN (test code = 11 MG/DL 6-20 2207) CREATININE (test 0.65 MG/DL 0.60-1.30 code = 221) eGFR (2020 CKD-EPI) 111 >60 (test code = 76387) ML/MIN/1.73 CALC BUN/CREAT (test 17 RATIO 6-28 code = 223) SODIUM (test code = 145 MEQ/L 250-397 1140) POTASSIUM (test code 4.2 MEQ/L 3.5-5.4 = 2227) CHLORIDE (test code 107 MEQ/L 95-107 = 2214) CARBON DIOXIDE (test 26 MEQ/L 19-31 code = 2205) CALCIUM (test code = 9.8 MG/DL 8.5-10.5 2208) PROTEIN, TOTAL (test 7.5 G/DL 6.1-8.3 code = 2228) ALBUMIN (test code = 4.5 G/DL 3.5-5.2 2200) CALC GLOBULIN (test 3.0 G/DL 1.9-3.7 code = 2239) CALC A/G RATIO (test 1.5 RATIO 1.0-2.6 [...] code = 38 U/L 5-40 2218) LIPID [id number] 04:26:32 Test Item Value Reference Range Interpretation [...] MOREINFORMATION , SEE CLIENT ANNOUNCE MENT AT [email or web address] RISK RATIO LDL/HDL 2.84 RATIO <3.22 (test code = 2238) HEMOGLOBIN [id number] 04:03:31 Test Item Value Reference Range Interpretation Comments HEMOGLOBIN A1c (test 10.9 % 4.2-5.6 H [employer] AN DIABETES code = 72092) ASSOCIATION IDE[employer] FOR HGB A1C: PREDIABETES/INC REASED [...] INDICATED, ALL TESTING PER FORMED ATCLINICAL PATH [facility], [place]. [address] [place] [address] LABORATORY DIRE CTOR: Carlos Enrique BERNARD. CLIA NUMBER [id number] CAP ACCREDITATION N O. [id number] COMPREHENSIVE METABOLIC [id number] 00:00:00 Test Item Value Reference Range Interpretation Comments GLUCOSE (test code = 2217) 122 MG/DL BUN (test code = 2208) 11 MG/DL CREATININE (test code = 2214) 0.65 MG/DL eGFR (2020 CKD-EPI) (test 111 ML/MIN/1.73 code = 46997) CALC BUN/CREAT (test code = 17 RATIO [...] code = 2219) 38 U/L COMPREHENSIVE METABOLIC [id number] 00:00:00 Test Item Value Reference Range Interpretation Comments GLUCOSE (test code = 2217) 122 MG/DL BUN (test code = 2208) 11 MG/DL CREATININE (test code = 2214) 0.65 MG/DL eGFR (2020 CKD-EPI) (test 111 ML/MIN/1.73 code = 38779) CALC BUN/CREAT (test code = 17 RATIO [...] (test code = 2219) 38 U/L LIPID [id number] 00:00:00 Test Item Value Reference Range Interpretation Comments CHOLESTEROL (test code = 2210) 169 MG/DL TRIGLYCERIDES (test code = 2232) 346 MG/DL HDL CHOLESTEROL (test code = 2220) 32 MG/DL CALC LDL CHOL (test code = 2237) 91 MG/DL RISK RATIO LDL/HDL (test code = 2.84 RATIO 2238) LIPID [id number] 00:00:00 Test Item Value Reference Range Interpretation Comments CHOLESTEROL (test code = 2210) 169 MG/DL TRIGLYCERIDES (test code = 2232) 346 MG/DL HDL CHOLESTEROL (test code = 2220) 32 MG/DL CALC LDL CHOL (test code = 2237) 91 MG/DL RISK RATIO LDL/HDL (test code = 2.84 RATIO 2238) HEMOGLOBIN [id number] 00:00:00 Test Item Value Reference Range Interpretation Comments HEMOGLOBIN A1c (test code = 04780) 10.9 % HEMOGLOBIN [id number] 00:00:00 Test Item Value Reference Range Interpretation Comments HEMOGLOBIN A1c (test code = 71228) 10.9 % HEMOGLOBIN [id number] 00:00:00 Test Item Value Reference Range Interpretation Comments HEMOGLOBIN A1c (test code = 45394) 10.9 % COMPREHENSIVE METABOLIC [id number] 00:00:00 Test Item Value Reference Range Interpretation Comments GLUCOSE (test code = 2217) 122 MG/DL BUN (test code = 2208) 11 MG/DL CREATININE (test code = 2214) 0.65 MG/DL eGFR (2020 CKD-EPI) (test 111 ML/MIN/1.73 code = 36434) CALC BUN/CREAT (test code = 17 RATIO [...] code = 2219) 38 U/L COMPREHENSIVE METABOLIC [id number] 00:00:00 Test Item Value Reference Range Interpretation Comments GLUCOSE (test code = 2217) 122 MG/DL BUN (test code = 2208) 11 MG/DL CREATININE (test code = 2214) 0.65 MG/DL eGFR (2020 CKD-EPI) (test 111 ML/MIN/1.73 code = 71637) CALC BUN/CREAT (test code = 17 RATIO [...] (test code = 2219) 38 U/L LIPID [id number] 00:00:00 Test Item Value Reference Range Interpretation Comments CHOLESTEROL (test code = 2210) 169 MG/DL TRIGLYCERIDES (test code = 2232) 346 MG/DL HDL CHOLESTEROL (test code = 2220) 32 MG/DL CALC LDL CHOL (test code = 2237) 91 MG/DL RISK RATIO LDL/HDL (test code = 2.84 RATIO 2238) LIPID [id number] 00:00:00 Test Item Value Reference Range Interpretation Comments CHOLESTEROL (test code = 2210) 169 MG/DL TRIGLYCERIDES (test code = 2232) 346 MG/DL HDL CHOLESTEROL (test code = 2220) 32 MG/DL CALC LDL CHOL (test code = 2237) 91 MG/DL RISK RATIO LDL/HDL (test code = 2.84 RATIO 2238) HEMOGLOBIN [id number] 00:00:00 Test Item Value Reference Range Interpretation Comments HEMOGLOBIN A1c (test code = 86954) 10.9 % HEMOGLOBIN [id number] 00:00:00 Test Item Value Reference Range Interpretation Comments HEMOGLOBIN A1c (test code = 20777) 10.9 % HEMOGLOBIN [id number] 00:00:00 Test Item Value Reference Range Interpretation Comments HEMOGLOBIN A1c (test code = 92039) 10.9 % COMPREHENSIVE METABOLIC [id number] 00:00:00 Test Item Value Reference Range Interpretation Comments GLUCOSE (test code = 2217) 122 MG/DL BUN (test code = 2208) 11 MG/DL CREATININE (test code = 2214) 0.65 MG/DL eGFR (2020 CKD-EPI) (test 111 ML/MIN/1.73 code = 90275) CALC BUN/CREAT (test code = 17 RATIO [...] code = 2219) 38 U/L COMPREHENSIVE METABOLIC [id number] 00:00:00 Test Item Value Reference Range Interpretation Comments GLUCOSE (test code = 2217) 122 MG/DL BUN (test code = 2208) 11 MG/DL CREATININE (test code = 2214) 0.65 MG/DL eGFR (2020 CKD-EPI) (test 111 ML/MIN/1.73 code = 77611) CALC BUN/CREAT (test code = 17 RATIO [...] (test code = 2219) 38 U/L LIPID [id number] 00:00:00 Test Item Value Reference Range Interpretation Comments CHOLESTEROL (test code = 2210) 169 MG/DL TRIGLYCERIDES (test code = 2232) 346 MG/DL HDL CHOLESTEROL (test code = 2220) 32 MG/DL CALC LDL CHOL (test code = 2237) 91 MG/DL RISK RATIO LDL/HDL (test code = 2.84 RATIO 2238) LIPID [id number] 00:00:00 Test Item Value Reference Range Interpretation Comments CHOLESTEROL (test code = 2210) 169 MG/DL TRIGLYCERIDES (test code = 2232) 346 MG/DL HDL CHOLESTEROL (test code = 2220) 32 MG/DL CALC LDL CHOL (test code = 2237) 91 MG/DL RISK RATIO LDL/HDL (test code = 2.84 RATIO 2238) HEMOGLOBIN [id number] 00:00:00 Test Item Value Reference Range Interpretation Comments HEMOGLOBIN A1c (test code = 15955) 10.9 % HEMOGLOBIN [id number] 00:00:00 Test Item Value Reference Range Interpretation Comments HEMOGLOBIN A1c (test code = 92252) 10.9 % HEMOGLOBIN [id number] 00:00:00 Test Item Value Reference Range Interpretation Comments HEMOGLOBIN A1c (test code = 71719) 10.9 % COMPREHENSIVE METABOLIC [id number] 00:00:00 Test Item Value Reference Range Interpretation Comments GLUCOSE (test code = 2217) 122 MG/DL BUN (test code = 2208) 11 MG/DL CREATININE (test code = 2214) 0.65 MG/DL eGFR (2020 CKD-EPI) (test 111 ML/MIN/1.73 code = 96679) CALC BUN/CREAT (test code = 17 RATIO [...] code = 2219) 38 U/L COMPREHENSIVE METABOLIC [id number] 00:00:00 Test Item Value Reference Range Interpretation Comments GLUCOSE (test code = 2217) 122 MG/DL BUN (test code = 2208) 11 MG/DL CREATININE (test code = 2214) 0.65 MG/DL eGFR (2020 CKD-EPI) (test 111 ML/MIN/1.73 code = 00184) CALC BUN/CREAT (test code = 17 RATIO [...] (test code = 2219) 38 U/L LIPID [id number] 00:00:00 Test Item Value Reference Range Interpretation Comments CHOLESTEROL (test code = 2210) 169 MG/DL TRIGLYCERIDES (test code = 2232) 346 MG/DL HDL CHOLESTEROL (test code = 2220) 32 MG/DL CALC LDL CHOL (test code = 2237) 91 MG/DL RISK RATIO LDL/HDL (test code = 2.84 RATIO 2238) LIPID [id number] 00:00:00 Test Item Value Reference Range Interpretation Comments CHOLESTEROL (test code = 2210) 169 MG/DL TRIGLYCERIDES (test code = 2232) 346 MG/DL HDL CHOLESTEROL (test code = 2220) 32 MG/DL CALC LDL CHOL (test code = 2237) 91 MG/DL RISK RATIO LDL/HDL (test code = 2.84 RATIO 2238) HEMOGLOBIN [id number] 00:00:00 Test Item Value Reference Range Interpretation Comments HEMOGLOBIN A1c (test code = 08546) 10.9 % HEMOGLOBIN [id number] 00:00:00 Test Item Value Reference Range Interpretation Comments HEMOGLOBIN A1c (test code = 21775) 10.9 % HEMOGLOBIN [id number] 00:00:00 Test Item Value Reference Range Interpretation Comments HEMOGLOBIN A1c (test code = 51920) 10.9 % COMPREHENSIVE METABOLIC [id number] 00:00:00 Test Item Value Reference Range Interpretation Comments GLUCOSE (test code = 2217) 122 MG/DL BUN (test code = 2208) 11 MG/DL CREATININE (test code = 2214) 0.65 MG/DL eGFR (2020 CKD-EPI) (test 111 ML/MIN/1.73 code = 87427) CALC BUN/CREAT (test code = 17 RATIO [...] code = 2219) 38 U/L COMPREHENSIVE METABOLIC [id number] 00:00:00 Test Item Value Reference Range Interpretation Comments GLUCOSE (test code = 2217) 122 MG/DL BUN (test code = 2208) 11 MG/DL CREATININE (test code = 2214) 0.65 MG/DL eGFR (2020 CKD-EPI) (test 111 ML/MIN/1.73 code = 03928) CALC BUN/CREAT (test code = 17 RATIO [...] (test code = 2219) 38 U/L LIPID [id number] 00:00:00 Test Item Value Reference Range Interpretation Comments CHOLESTEROL (test code = 2210) 169 MG/DL TRIGLYCERIDES (test code = 2232) 346 MG/DL HDL CHOLESTEROL (test code = 2220) 32 MG/DL CALC LDL CHOL (test code = 2237) 91 MG/DL RISK RATIO LDL/HDL (test code = 2.84 RATIO 2238) LIPID [id number] 00:00:00 Test Item Value Reference Range Interpretation Comments CHOLESTEROL (test code = 2210) 169 MG/DL TRIGLYCERIDES (test code = 2232) 346 MG/DL HDL CHOLESTEROL (test code = 2220) 32 MG/DL CALC LDL CHOL (test code = 2237) 91 MG/DL RISK RATIO LDL/HDL (test code = 2.84 RATIO 2238) HEMOGLOBIN [id number] 00:00:00 Test Item Value Reference Range Interpretation Comments HEMOGLOBIN A1c (test code = 81591) 10.9 % HEMOGLOBIN [id number] 00:00:00 Test Item Value Reference Range Interpretation Comments HEMOGLOBIN A1c (test code = 43976) 10.9 % HEMOGLOBIN [id number] 00:00:00 Test Item Value Reference Range Interpretation Comments HEMOGLOBIN A1c (test code = 96368) 10.9 % COMPREHENSIVE METABOLIC [id number] 00:00:00 Test Item Value Reference Range Interpretation Comments GLUCOSE (test code = 2217) 122 MG/DL BUN (test code = 2208) 11 MG/DL CREATININE (test code = 2214) 0.65 MG/DL eGFR (2020 CKD-EPI) (test 111 ML/MIN/1.73 code = 77244) CALC BUN/CREAT (test code = 17 RATIO [...] code = 2219) 38 U/L COMPREHENSIVE METABOLIC [id number] 00:00:00 Test Item Value Reference Range Interpretation Comments GLUCOSE (test code = 2217) 122 MG/DL BUN (test code = 2208) 11 MG/DL CREATININE (test code = 2214) 0.65 MG/DL eGFR (2020 CKD-EPI) (test 111 ML/MIN/1.73 code = 09804) CALC BUN/CREAT (test code = 17 RATIO 2235) SODIUM (test code = 2231) 145 MEQ/L POTASSIUM (test code = 2228) 4.2 MEQ/L CHLORIDE (test code = 2215) 107 MEQ/L CARBON DIOXIDE (test code = 26 MEQ/L 6) CALCIUM (test code = 2209) 9.8 MG/DL PROTEIN, TOTAL (test code = 7.5 G/DL 9) ALBUMIN (test code = 2201) 4.5 G/DL CALC GLOBULIN (test code = 3.0 G/DL 2240) CALC A/G RATIO (test code = 1.5 RATIO 2234) BILIRUBIN, TOTAL (test code = 0.5 MG/DL 7) ALKALINE PHOSPHATASE (test 62 U/L code = 2204) AST (test code = 2218) 24 U/L ALT (test code = 2219) 38 U/L LIPID [id number] 00:00:00 Test Item Value Reference Range Interpretation Comments CHOLESTEROL (test code = 2210) 169 MG/DL TRIGLYCERIDES (test code = 2232) 346 MG/DL HDL CHOLESTEROL (test code = 2220) 32 MG/DL CALC LDL CHOL (test code = 2237) 91 MG/DL RISK RATIO LDL/HDL (test code = 2.84 RATIO 2238) LIPID [id number] 00:00:00 Test Item Value Reference Range Interpretation Comments CHOLESTEROL (test code = 2210) 169 MG/DL TRIGLYCERIDES (test code = 2232) 346 MG/DL HDL CHOLESTEROL (test code = 2220) 32 MG/DL CALC LDL CHOL (test code = 2237) 91 MG/DL RISK RATIO LDL/HDL (test code = 2.84 RATIO 2238) HEMOGLOBIN [id number] 00:00:00 Test Item Value Reference Range Interpretation Comments HEMOGLOBIN A1c (test code = 05244) 10.9 % HEMOGLOBIN [id number] 00:00:00 Test Item Value Reference Range Interpretation Comments HEMOGLOBIN A1c (test code = 49859) 10.9 % HEMOGLOBIN [id number] 00:00:00 Test Item Value Reference Range Interpretation Comments HEMOGLOBIN A1c (test code = 66810) 10.9 % COMPREHENSIVE METABOLIC [id number] 00:00:00 Test Item Value Reference Range Interpretation Comments GLUCOSE (test code = 2217) 122 MG/DL BUN (test code = 2208) 11 MG/DL CREATININE (test code = 2214) 0.65 MG/DL eGFR (2020 CKD-EPI) (test 111 ML/MIN/1.73 code = 03871) CALC BUN/CREAT (test code = 17 RATIO [...] code = 2219) 38 U/L COMPREHENSIVE METABOLIC [id number] 00:00:00 Test Item Value Reference Range Interpretation Comments GLUCOSE (test code = 2217) 122 MG/DL BUN (test code = 2208) 11 MG/DL CREATININE (test code = 2214) 0.65 MG/DL eGFR (2020 CKD-EPI) (test 111 ML/MIN/1.73 code = 25454) CALC BUN/CREAT (test code = 17 RATIO [...] (test code = 2219) 38 U/L LIPID [id number] 00:00:00 Test Item Value Reference Range Interpretation Comments CHOLESTEROL (test code = 2210) 169 MG/DL TRIGLYCERIDES (test code = 2232) 346 MG/DL HDL CHOLESTEROL (test code = 2220) 32 MG/DL CALC LDL CHOL (test code = 2237) 91 MG/DL RISK RATIO LDL/HDL (test code = 2.84 RATIO 2238) LIPID [id number] 00:00:00 Test Item Value Reference Range Interpretation Comments CHOLESTEROL (test code = 2210) 169 MG/DL TRIGLYCERIDES (test code = 2232) 346 MG/DL HDL CHOLESTEROL (test code = 2220) 32 MG/DL CALC LDL CHOL (test code = 2237) 91 MG/DL RISK RATIO LDL/HDL (test code = 2.84 RATIO 2238) HEMOGLOBIN [id number] 00:00:00 Test Item Value Reference Range Interpretation Comments HEMOGLOBIN A1c (test code = 32370) 10.9 % HEMOGLOBIN [id number] 00:00:00 Test Item Value Reference Range Interpretation Comments HEMOGLOBIN A1c (test code = 47766) 10.9 % HEMOGLOBIN [id number] 00:00:00 Test Item Value Reference Range Interpretation Comments HEMOGLOBIN A1c (test code = 73935) 10.9 % COMPREHENSIVE METABOLIC [id number] 00:00:00 Test Item Value Reference Range Interpretation Comments GLUCOSE (test code = 2217) 122 MG/DL BUN (test code = 2208) 11 MG/DL CREATININE (test code = 2214) 0.65 MG/DL eGFR (2020 CKD-EPI) (test 111 ML/MIN/1.73 code = 95061) CALC BUN/CREAT (test code = 17 RATIO [...] code = 2219) 38 U/L COMPREHENSIVE METABOLIC [id number] 00:00:00 Test Item Value Reference Range Interpretation Comments GLUCOSE (test code = 2217) 122 MG/DL BUN (test code = 2208) 11 MG/DL CREATININE (test code = 2214) 0.65 MG/DL eGFR (2020 CKD-EPI) (test 111 ML/MIN/1.73 code = 29237) CALC BUN/CREAT (test code = 17 RATIO [...] (test code = 2219) 38 U/L LIPID [id number] 00:00:00 Test Item Value Reference Range Interpretation Comments CHOLESTEROL (test code = 2210) 169 MG/DL TRIGLYCERIDES (test code = 2232) 346 MG/DL HDL CHOLESTEROL (test code = 2220) 32 MG/DL CALC LDL CHOL (test code = 2237) 91 MG/DL RISK RATIO LDL/HDL (test code = 2.84 RATIO 2238) LIPID [id number] 00:00:00 Test Item Value Reference Range Interpretation Comments CHOLESTEROL (test code = 2210) 169 MG/DL TRIGLYCERIDES (test code = 2232) 346 MG/DL HDL CHOLESTEROL (test code = 2220) 32 MG/DL CALC LDL CHOL (test code = 2237) 91 MG/DL RISK RATIO LDL/HDL (test code = 2.84 RATIO 2238) HEMOGLOBIN [id number] 00:00:00 Test Item Value Reference Range Interpretation Comments HEMOGLOBIN A1c (test code = 09919) 10.9 % HEMOGLOBIN [id number] 00:00:00 Test Item Value Reference Range Interpretation Comments HEMOGLOBIN A1c (test code = 49514) 10.9 % HEMOGLOBIN [id number] 00:00:00 Test Item Value Reference Range Interpretation Comments HEMOGLOBIN A1c (test code = 11817) 10.9 % COMPREHENSIVE METABOLIC [id number] 00:00:00 Test Item Value Reference Range Interpretation Comments GLUCOSE (test code = 2217) 122 MG/DL BUN (test code = 2208) 11 MG/DL CREATININE (test code = 2214) 0.65 MG/DL eGFR (2020 CKD-EPI) (test 111 ML/MIN/1.73 code = 69228) CALC BUN/CREAT (test code = 17 RATIO [...] code = 2219) 38 U/L COMPREHENSIVE METABOLIC [id number] 00:00:00 Test Item Value Reference Range Interpretation Comments GLUCOSE (test code = 2217) 122 MG/DL BUN (test code = 2208) 11 MG/DL CREATININE (test code = 2214) 0.65 MG/DL eGFR (2020 CKD-EPI) (test 111 ML/MIN/1.73 code = 01573) CALC BUN/CREAT (test code = 17 RATIO [...] (test code = 2219) 38 U/L LIPID [id number] 00:00:00 Test Item Value Reference Range Interpretation Comments CHOLESTEROL (test code = 2210) 169 MG/DL TRIGLYCERIDES (test code = 2232) 346 MG/DL HDL CHOLESTEROL (test code = 2220) 32 MG/DL CALC LDL CHOL (test code = 2237) 91 MG/DL RISK RATIO LDL/HDL (test code = 2.84 RATIO 2238) LIPID [id number] 00:00:00 Test Item Value Reference Range Interpretation Comments CHOLESTEROL (test code = 2210) 169 MG/DL TRIGLYCERIDES (test code = 2232) 346 MG/DL HDL CHOLESTEROL (test code = 2220) 32 MG/DL CALC LDL CHOL (test code = 2237) 91 MG/DL RISK RATIO LDL/HDL (test code = 2.84 RATIO 2238) HEMOGLOBIN [id number] 00:00:00 Test Item Value Reference Range Interpretation Comments HEMOGLOBIN A1c (test code = 51791) 10.9 % HEMOGLOBIN [id number] 00:00:00 Test Item Value Reference Range Interpretation Comments HEMOGLOBIN A1c (test code = 85342) 10.9 % HEMOGLOBIN [id number] 00:00:00 Test Item Value Reference Range Interpretation Comments HEMOGLOBIN A1c (test code = 70431) 10.9 % VITAMIN D, 25 [id number] 04:13:44 Test Item Value Reference Range Interpretation [...] ATED, ALL TESTING PERFORM ED ATCLINICAL PATH [facility], [facility]. [address] [place] [id number] LABORATORY DIRE CTOR: Carlos Enrique BERNARD. CLIA NUMBER [id number] CAP ACCREDITATION N O. [id number] HIV 1/2 4TH GEN, RFLX [id number] 03:26:41 Test Item Value Reference Range Interpretation Comments HIV 1/2 4TH GEN, RFLX CONF (test NON-REACTIVE NON-REACTIVE code = 3514) ALBUMIN, URINE, [id number] 02:46:02 Test Item Value Reference Range Interpretation Comments ALBUMIN, URINE, RANDOM (test code 10.2 MG/DL NOT ESTAB = 30200) MICROALBUMIN, [id number] 00:00:00 Test Item Value Reference Range Interpretation Comments ALBUMIN, URINE, RANDOM (test code 10.2 MG/DL = 22433) MICROALBUMIN, [id number] 00:00:00 Test Item Value Reference Range Interpretation Comments ALBUMIN, URINE, RANDOM (test code 10.2 MG/DL = 31946) HIV AB/AG COMBO RFLX [id number] 00:00:00 Test Item Value Reference Range Interpretation Comments HIV 1/2 4TH GEN, RFLX CONF (test NON-REACTIVE code = 3514) HIV AB/AG COMBO RFLX [id number] 00:00:00 Test Item Value Reference Range Interpretation Comments HIV 1/2 4TH GEN, RFLX CONF (test NON-REACTIVE code = 3514) VITAMIN D, 25 [id number] 00:00:00 Test Item Value Reference Range Interpretation Comments VITAMIN D, 25 OH (test code = 4958) 18 NG/ML VITAMIN D, 25 [id number] 00:00:00 Test Item Value Reference Range Interpretation Comments VITAMIN D, 25 OH (test code = 4958) 18 NG/ML MICROALBUMIN, [id number] 00:00:00 Test Item Value Reference Range Interpretation Comments ALBUMIN, URINE, RANDOM (test code 10.2 MG/DL = 09746) MICROALBUMIN, [id number] 00:00:00 Test Item Value Reference Range Interpretation Comments ALBUMIN, URINE, RANDOM (test code 10.2 MG/DL = 73314) HIV AB/AG COMBO RFLX [id number] 00:00:00 Test Item Value Reference Range Interpretation Comments HIV 1/2 4TH GEN, RFLX CONF (test NON-REACTIVE code = 3514) HIV AB/AG COMBO RFLX [id number] 00:00:00 Test Item Value Reference Range Interpretation Comments HIV 1/2 4TH GEN, RFLX CONF (test NON-REACTIVE code = 3514) VITAMIN D, 25 [id number] 00:00:00 Test Item Value Reference Range Interpretation Comments VITAMIN D, 25 OH (test code = 4958) 18 NG/ML VITAMIN D, 25 [id number] 00:00:00 Test Item Value Reference Range Interpretation Comments VITAMIN D, 25 OH (test code = 4958) 18 NG/ML MICROALBUMIN, [id number] 00:00:00 Test Item Value Reference Range Interpretation Comments ALBUMIN, URINE, RANDOM (test code 10.2 MG/DL = 99707) MICROALBUMIN, [id number] 00:00:00 Test Item Value Reference Range Interpretation Comments ALBUMIN, URINE, RANDOM (test code 10.2 MG/DL = 77376) HIV AB/AG COMBO RFLX [id number] 00:00:00 Test Item Value Reference Range Interpretation Comments HIV 1/2 4TH GEN, RFLX CONF (test NON-REACTIVE code = 3514) HIV AB/AG COMBO RFLX [id number] 00:00:00 Test Item Value Reference Range Interpretation Comments HIV 1/2 4TH GEN, RFLX CONF (test NON-REACTIVE code = 3514) VITAMIN D, 25 [id number] 00:00:00 Test Item Value Reference Range Interpretation Comments VITAMIN D, 25 OH (test code = 4958) 18 NG/ML VITAMIN D, 25 [id number] 00:00:00 Test Item Value Reference Range Interpretation Comments VITAMIN D, 25 OH (test code = 4958) 18 NG/ML MICROALBUMIN, [id number] 00:00:00 Test Item Value Reference Range Interpretation Comments ALBUMIN, URINE, RANDOM (test code 10.2 MG/DL = 83731) MICROALBUMIN, [id number] 00:00:00 Test Item Value Reference Range Interpretation Comments ALBUMIN, URINE, RANDOM (test code 10.2 MG/DL = 37399) HIV AB/AG COMBO RFLX [id number] 00:00:00 Test Item Value Reference Range Interpretation Comments HIV 1/2 4TH GEN, RFLX CONF (test NON-REACTIVE code = 3514) HIV AB/AG COMBO RFLX [id number] 00:00:00 Test Item Value Reference Range Interpretation Comments HIV 1/2 4TH GEN, RFLX CONF (test NON-REACTIVE code = 3514) VITAMIN D, 25 [id number] 00:00:00 Test Item Value Reference Range Interpretation Comments VITAMIN D, 25 OH (test code = 4958) 18 NG/ML VITAMIN D, 25 [id number] 00:00:00 Test Item Value Reference Range Interpretation Comments VITAMIN D, 25 OH (test code = 4958) 18 NG/ML MICROALBUMIN, [id number] 00:00:00 Test Item Value Reference Range Interpretation Comments ALBUMIN, URINE, RANDOM (test code 10.2 MG/DL = 62192) MICROALBUMIN, [id number] 00:00:00 Test Item Value Reference Range Interpretation Comments ALBUMIN, URINE, RANDOM (test code 10.2 MG/DL = 45885) HIV AB/AG COMBO RFLX [id number] 00:00:00 Test Item Value Reference Range Interpretation Comments HIV 1/2 4TH GEN, RFLX CONF (test NON-REACTIVE code = 3514) HIV AB/AG COMBO RFLX [id number] 00:00:00 Test Item Value Reference Range Interpretation Comments HIV 1/2 4TH GEN, RFLX CONF (test NON-REACTIVE code = 3514) VITAMIN D, 25 [id number] 00:00:00 Test Item Value Reference Range Interpretation Comments VITAMIN D, 25 OH (test code = 4958) 18 NG/ML VITAMIN D, 25 [id number] 00:00:00 Test Item Value Reference Range Interpretation Comments VITAMIN D, 25 OH (test code = 4958) 18 NG/ML MICROALBUMIN, [id number] 00:00:00 Test Item Value Reference Range Interpretation Comments ALBUMIN, URINE, RANDOM (test code 10.2 MG/DL = 87213) MICROALBUMIN, [id number] 00:00:00 Test Item Value Reference Range Interpretation Comments ALBUMIN, URINE, RANDOM (test code 10.2 MG/DL = 90413) HIV AB/AG COMBO RFLX [id number] 00:00:00 Test Item Value Reference Range Interpretation Comments HIV 1/2 4TH GEN, RFLX CONF (test NON-REACTIVE code = 3514) HIV AB/AG COMBO RFLX [id number] 00:00:00 Test Item Value Reference Range Interpretation Comments HIV 1/2 4TH GEN, RFLX CONF (test NON-REACTIVE code = 3514) VITAMIN D, 25 [id number] 00:00:00 Test Item Value Reference Range Interpretation Comments VITAMIN D, 25 OH (test code = 4958) 18 NG/ML VITAMIN D, 25 [id number] 00:00:00 Test Item Value Reference Range Interpretation Comments VITAMIN D, 25 OH (test code = 4958) 18 NG/ML MICROALBUMIN, [id number] 00:00:00 Test Item Value Reference Range Interpretation Comments ALBUMIN, URINE, RANDOM (test code 10.2 MG/DL = 85839) MICROALBUMIN, [id number] 00:00:00 Test Item Value Reference Range Interpretation Comments ALBUMIN, URINE, RANDOM (test code 10.2 MG/DL = 67588) HIV AB/AG COMBO RFLX [id number] 00:00:00 Test Item Value Reference Range Interpretation Comments HIV 1/2 4TH GEN, RFLX CONF (test NON-REACTIVE code = 3514) HIV AB/AG COMBO RFLX [id number] 00:00:00 Test Item Value Reference Range Interpretation Comments HIV 1/2 4TH GEN, RFLX CONF (test NON-REACTIVE code = 3514) VITAMIN D, 25 [id number] 00:00:00 Test Item Value Reference Range Interpretation Comments VITAMIN D, 25 OH (test code = 4958) 18 NG/ML VITAMIN D, 25 [id number] 00:00:00 Test Item Value Reference Range Interpretation Comments VITAMIN D, 25 OH (test code = 4958) 18 NG/ML MICROALBUMIN, [id number] 00:00:00 Test Item Value Reference Range Interpretation Comments ALBUMIN, URINE, RANDOM (test code 10.2 MG/DL = 53550) HIV AB/AG COMBO RFLX [id number] 00:00:00 Test Item Value Reference Range Interpretation Comments HIV 1/2 4TH GEN, RFLX CONF (test NON-REACTIVE code = 3514) MICROALBUMIN, [id number] 00:00:00 Test Item Value Reference Range Interpretation Comments ALBUMIN, URINE, RANDOM (test code 10.2 MG/DL = 27901) MICROALBUMIN, [id number] 00:00:00 Test Item Value Reference Range Interpretation Comments ALBUMIN, URINE, RANDOM (test code 10.2 MG/DL = 73580) HIV AB/AG COMBO RFLX [id number] 00:00:00 Test Item Value Reference Range Interpretation Comments HIV 1/2 4TH GEN, RFLX CONF (test NON-REACTIVE code = 3514) HIV AB/AG COMBO RFLX [id number] 00:00:00 Test Item Value Reference Range Interpretation Comments HIV 1/2 4TH GEN, RFLX CONF (test NON-REACTIVE code = 3514) VITAMIN D, 25 [id number] 00:00:00 Test Item Value Reference Range Interpretation Comments VITAMIN D, 25 OH (test code = 4958) 18 NG/ML VITAMIN D, 25 [id number] 00:00:00 Test Item Value Reference Range Interpretation Comments VITAMIN D, 25 OH (test code = 4958) 18 NG/ML VITAMIN D, 25 [id number] 00:00:00 Test Item Value Reference Range Interpretation Comments VITAMIN D, 25 OH (test code = 4958) 18 NG/ML MICROALBUMIN, [id number] 00:00:00 Test Item Value Reference Range Interpretation Comments ALBUMIN, URINE, RANDOM (test code 10.2 MG/DL = 24528) MICROALBUMIN, [id number] 00:00:00 Test Item Value Reference Range Interpretation Comments ALBUMIN, URINE, RANDOM (test code 10.2 MG/DL = 67597) HIV AB/AG COMBO RFLX [id number] 00:00:00 Test Item Value Reference Range Interpretation Comments HIV 1/2 4TH GEN, RFLX CONF (test NON-REACTIVE code = 3514) HIV AB/AG COMBO RFLX [id number] 00:00:00 Test Item Value Reference Range Interpretation Comments HIV 1/2 4TH GEN, RFLX CONF (test NON-REACTIVE code = 3514) VITAMIN D, 25 [id number] 00:00:00 Test Item Value Reference Range Interpretation Comments VITAMIN D, 25 OH (test code = 4958) 18 NG/ML VITAMIN D, 25 [id number] 00:00:00 Test Item Value Reference Range Interpretation Comments VITAMIN D, 25 OH (test code = 4958) 18 NG/ML MICROALBUMIN, [id number] 00:00:00 Test Item Value Reference Range Interpretation Comments ALBUMIN, URINE, RANDOM (test code 10.2 MG/DL = 52557) MICROALBUMIN, [id number] 00:00:00 Test Item Value Reference Range Interpretation Comments ALBUMIN, URINE, RANDOM (test code 10.2 MG/DL = 53678) HIV AB/AG COMBO RFLX [id number] 00:00:00 Test Item Value Reference Range Interpretation Comments HIV 1/2 4TH GEN, RFLX CONF (test NON-REACTIVE code = 3514) HIV AB/AG COMBO RFLX [id number] 00:00:00 Test Item Value Reference Range Interpretation Comments HIV 1/2 4TH GEN, RFLX CONF (test NON-REACTIVE code = 3514) VITAMIN D, 25 [id number] 00:00:00 Test Item Value Reference Range Interpretation Comments VITAMIN D, 25 OH (test code = 4958) 18 NG/ML VITAMIN D, 25 [id number] 00:00:00 Test Item Value Reference Range Interpretation Comments VITAMIN D, 25 OH (test code = 4958) 18 NG/ML LIPID [id number] 02:15:07 Test Item Value Reference Range Interpretation [...] CALCULATE (test code = 2238) COMPREHENSIVE METABOLIC [id number] 02:15:07 Test Item Value Reference Range Interpretation Comments GLUCOSE (test code = 349 MG/DL 70-99 H 2216) BUN (test code = 17 MG/DL 6-20 2207) CREATININE (test 0.80 MG/DL 0.60-1.30 code = 2214) eGFR (2020 CKD-EPI) 94 ML/MIN/1.73 >60 (test code = 27300) CALC BUN/CREAT (test 21 RATIO 6-28 code = 223) SODIUM (test code = 137 MEQ/L 832-333 8062) POTASSIUM (test code 4.2 MEQ/L 3.5-5.4 = [...] code = 39 U/L 5-40 2218) LIPID [id number] 00:00:00 Test Item Value Reference Range Interpretation Comments CHOLESTEROL (test code = 2210) 206 MG/DL TRIGLYCERIDES (test code = 2232) 1120 MG/DL HDL CHOLESTEROL (test code = 24 MG/DL 2219) CALC LDL CHOL (test code = 2237) (NOTE) MG/DL RISK RATIO LDL/HDL (test code = (NOTE) RATIO 2238) LIPID [id number] 00:00:00 Test Item Value Reference Range Interpretation Comments CHOLESTEROL (test code = 2210) 206 MG/DL TRIGLYCERIDES (test code = 2232) 1120 MG/DL HDL CHOLESTEROL (test code = 24 MG/DL 2220) CALC LDL CHOL (test code = 2237) (NOTE) MG/DL RISK RATIO LDL/HDL (test code = (NOTE) RATIO 2238) COMPREHENSIVE METABOLIC [id number] 00:00:00 Test Item Value Reference Range Interpretation Comments GLUCOSE (test code = 2217) 349 MG/DL BUN (test code = 2208) 17 MG/DL CREATININE (test code = 2214) 0.80 MG/DL eGFR (2020 CKD-EPI) (test code 94 ML/MIN/1.73 = 43792) CALC BUN/CREAT (test code = 21 RATIO [...] code = 2219) 39 U/L COMPREHENSIVE METABOLIC [id number] 00:00:00 Test Item Value Reference Range Interpretation Comments GLUCOSE (test code = 2217) 349 MG/DL BUN (test code = 2208) 17 MG/DL CREATININE (test code = 2214) 0.80 MG/DL eGFR (2020 CKD-EPI) (test code 94 ML/MIN/1.73 = 38353) CALC BUN/CREAT (test code = 21 RATIO [...] (test code = 2219) 39 U/L LIPID [id number] 00:00:00 Test Item Value Reference Range Interpretation Comments CHOLESTEROL (test code = 2210) 206 MG/DL TRIGLYCERIDES (test code = 2232) 1120 MG/DL HDL CHOLESTEROL (test code = 24 MG/DL 2220) CALC LDL CHOL (test code = 2237) (NOTE) MG/DL RISK RATIO LDL/HDL (test code = (NOTE) RATIO 2238) LIPID [id number] 00:00:00 Test Item Value Reference Range Interpretation Comments CHOLESTEROL (test code = 2210) 206 MG/DL TRIGLYCERIDES (test code = 2232) 1120 MG/DL HDL CHOLESTEROL (test code = 24 MG/DL 2220) CALC LDL CHOL (test code = 2237) (NOTE) MG/DL RISK RATIO LDL/HDL (test code = (NOTE) RATIO 2238) COMPREHENSIVE METABOLIC [id number] 00:00:00 Test Item Value Reference Range Interpretation Comments GLUCOSE (test code = 2217) 349 MG/DL BUN (test code = 2208) 17 MG/DL CREATININE (test code = 2214) 0.80 MG/DL eGFR (2020 CKD-EPI) (test code 94 ML/MIN/1.73 = 06409) CALC BUN/CREAT (test code = 21 RATIO [...] code = 2219) 39 U/L COMPREHENSIVE METABOLIC [id number] 00:00:00 Test Item Value Reference Range Interpretation Comments GLUCOSE (test code = 2217) 349 MG/DL BUN (test code = 2208) 17 MG/DL CREATININE (test code = 2214) 0.80 MG/DL eGFR (2020 CKD-EPI) (test code 94 ML/MIN/1.73 = 84127) CALC BUN/CREAT (test code = 21 RATIO [...] (test code = 2219) 39 U/L LIPID [id number] 00:00:00 Test Item Value Reference Range Interpretation Comments CHOLESTEROL (test code = 2210) 206 MG/DL TRIGLYCERIDES (test code = 2232) 1120 MG/DL HDL CHOLESTEROL (test code = 24 MG/DL 2220) CALC LDL CHOL (test code = 2237) (NOTE) MG/DL RISK RATIO LDL/HDL (test code = (NOTE) RATIO 2238) LIPID [id number] 00:00:00 Test Item Value Reference Range Interpretation Comments CHOLESTEROL (test code = 2210) 206 MG/DL TRIGLYCERIDES (test code = 2232) 1120 MG/DL HDL CHOLESTEROL (test code = 24 MG/DL 2220) CALC LDL CHOL (test code = 2237) (NOTE) MG/DL RISK RATIO LDL/HDL (test code = (NOTE) RATIO 2238) COMPREHENSIVE METABOLIC [id number] 00:00:00 Test Item Value Reference Range Interpretation Comments GLUCOSE (test code = 2217) 349 MG/DL BUN (test code = 2208) 17 MG/DL CREATININE (test code = 2214) 0.80 MG/DL eGFR (2020 CKD-EPI) (test code 94 ML/MIN/1.73 = 08482) CALC BUN/CREAT (test code = 21 RATIO [...] code = 2219) 39 U/L COMPREHENSIVE METABOLIC [id number] 00:00:00 Test Item Value Reference Range Interpretation Comments GLUCOSE (test code = 2217) 349 MG/DL BUN (test code = 2208) 17 MG/DL CREATININE (test code = 2214) 0.80 MG/DL eGFR (2020 CKD-EPI) (test code 94 ML/MIN/1.73 = 47117) CALC BUN/CREAT (test code = 21 RATIO [...] (test code = 2219) 39 U/L LIPID [id number] 00:00:00 Test Item Value Reference Range Interpretation Comments CHOLESTEROL (test code = 2210) 206 MG/DL TRIGLYCERIDES (test code = 2232) 1120 MG/DL HDL CHOLESTEROL (test code = 24 MG/DL 2220) CALC LDL CHOL (test code = 2237) (NOTE) MG/DL RISK RATIO LDL/HDL (test code = (NOTE) RATIO 2238) LIPID [id number] 00:00:00 Test Item Value Reference Range Interpretation Comments CHOLESTEROL (test code = 2210) 206 MG/DL TRIGLYCERIDES (test code = 2232) 1120 MG/DL HDL CHOLESTEROL (test code = 24 MG/DL 2220) CALC LDL CHOL (test code = 2237) (NOTE) MG/DL RISK RATIO LDL/HDL (test code = (NOTE) RATIO 2238) COMPREHENSIVE METABOLIC [id number] 00:00:00 Test Item Value Reference Range Interpretation Comments GLUCOSE (test code = 2217) 349 MG/DL BUN (test code = 2208) 17 MG/DL CREATININE (test code = 2214) 0.80 MG/DL eGFR (2020 CKD-EPI) (test code 94 ML/MIN/1.73 = 42802) CALC BUN/CREAT (test code = 21 RATIO [...] BILIRUBIN, TOTAL (test code = 0.2 MG/DL ) ALKALINE PHOSPHATASE (test 69 U/L code = 2204) AST (test code = 2218) 21 U/L ALT (test code = 2219) 39 U/L COMPREHENSIVE METABOLIC [id number] 00:00:00 Test Item Value Reference Range Interpretation Comments GLUCOSE (test code = 2217) 349 MG/DL BUN (test code = 2208) 17 MG/DL CREATININE (test code = 2214) 0.80 MG/DL eGFR (2020 CKD-EPI) (test code 94 ML/MIN/1.73 = 21524) CALC BUN/CREAT (test code = 21 RATIO [...] (test code = 2219) 39 U/L LIPID [id number] 00:00:00 Test Item Value Reference Range Interpretation Comments CHOLESTEROL (test code = 2210) 206 MG/DL TRIGLYCERIDES (test code = 2232) 1120 MG/DL HDL CHOLESTEROL (test code = 24 MG/DL 2220) CALC LDL CHOL (test code = 2237) (NOTE) MG/DL RISK RATIO LDL/HDL (test code = (NOTE) RATIO 2238) LIPID [id number] 00:00:00 Test Item Value Reference Range Interpretation Comments CHOLESTEROL (test code = 2210) 206 MG/DL TRIGLYCERIDES (test code = 2232) 1120 MG/DL HDL CHOLESTEROL (test code = 24 MG/DL 2220) CALC LDL CHOL (test code = 2237) (NOTE) MG/DL RISK RATIO LDL/HDL (test code = (NOTE) RATIO 2238) COMPREHENSIVE METABOLIC [id number] 00:00:00 Test Item Value Reference Range Interpretation Comments GLUCOSE (test code = 2217) 349 MG/DL BUN (test code = 2208) 17 MG/DL CREATININE (test code = 2214) 0.80 MG/DL eGFR (2020 CKD-EPI) (test code 94 ML/MIN/1.73 = 40192) CALC BUN/CREAT (test code = 21 RATIO [...] code = 2219) 39 U/L COMPREHENSIVE METABOLIC [id number] 00:00:00 Test Item Value Reference Range Interpretation Comments GLUCOSE (test code = 2217) 349 MG/DL BUN (test code = 2208) 17 MG/DL CREATININE (test code = 2214) 0.80 MG/DL eGFR (2020 CKD-EPI) (test code 94 ML/MIN/1.73 = 05978) CALC BUN/CREAT (test code = 21 RATIO [...] (test code = 2219) 39 U/L LIPID [id number] 00:00:00 Test Item Value Reference Range Interpretation Comments CHOLESTEROL (test code = 2210) 206 MG/DL TRIGLYCERIDES (test code = 2232) 1120 MG/DL HDL CHOLESTEROL (test code = 24 MG/DL 2220) CALC LDL CHOL (test code = 2237) (NOTE) MG/DL RISK RATIO LDL/HDL (test code = (NOTE) RATIO 2238) LIPID [id number] 00:00:00 Test Item Value Reference Range Interpretation Comments CHOLESTEROL (test code = 2210) 206 MG/DL TRIGLYCERIDES (test code = 2232) 1120 MG/DL HDL CHOLESTEROL (test code = 24 MG/DL 2220) CALC LDL CHOL (test code = 2237) (NOTE) MG/DL RISK RATIO LDL/HDL (test code = (NOTE) RATIO 2238) COMPREHENSIVE METABOLIC [id number] 00:00:00 Test Item Value Reference Range Interpretation Comments GLUCOSE (test code = 2217) 349 MG/DL BUN (test code = 2208) 17 MG/DL CREATININE (test code = 2214) 0.80 MG/DL eGFR (2020 CKD-EPI) (test code 94 ML/MIN/1.73 = 47076) CALC BUN/CREAT (test code = 21 RATIO [...] code = 2219) 39 U/L COMPREHENSIVE METABOLIC [id number] 00:00:00 Test Item Value Reference Range Interpretation Comments GLUCOSE (test code = 2217) 349 MG/DL BUN (test code = 2208) 17 MG/DL CREATININE (test code = 2214) 0.80 MG/DL eGFR (2020 CKD-EPI) (test code 94 ML/MIN/1.73 = 58016) CALC BUN/CREAT (test code = 21 RATIO [...] (test code = 2219) 39 U/L LIPID [id number] 00:00:00 Test Item Value Reference Range Interpretation Comments CHOLESTEROL (test code = 2210) 206 MG/DL TRIGLYCERIDES (test code = 2232) 1120 MG/DL HDL CHOLESTEROL (test code = 24 MG/DL 2220) CALC LDL CHOL (test code = 2237) (NOTE) MG/DL RISK RATIO LDL/HDL (test code = (NOTE) RATIO 2238) LIPID [id number] 00:00:00 Test Item Value Reference Range Interpretation Comments CHOLESTEROL (test code = 2210) 206 MG/DL TRIGLYCERIDES (test code = 2232) 1120 MG/DL HDL CHOLESTEROL (test code = 24 MG/DL 2220) CALC LDL CHOL (test code = 2237) (NOTE) MG/DL RISK RATIO LDL/HDL (test code = (NOTE) RATIO 2238) COMPREHENSIVE METABOLIC [id number] 00:00:00 Test Item Value Reference Range Interpretation Comments GLUCOSE (test code = 2217) 349 MG/DL BUN (test code = 2208) 17 MG/DL CREATININE (test code = 2214) 0.80 MG/DL eGFR (2020 CKD-EPI) (test code 94 ML/MIN/1.73 = 07345) CALC BUN/CREAT (test code = 21 RATIO [...] code = 2219) 39 U/L COMPREHENSIVE METABOLIC [id number] 00:00:00 Test Item Value Reference Range Interpretation Comments GLUCOSE (test code = 2217) 349 MG/DL BUN (test code = 2208) 17 MG/DL CREATININE (test code = 2214) 0.80 MG/DL eGFR (2020 CKD-EPI) (test code 94 ML/MIN/1.73 = 03323) CALC BUN/CREAT (test code = 21 RATIO [...] (test code = 2219) 39 U/L LIPID [id number] 00:00:00 Test Item Value Reference Range Interpretation Comments CHOLESTEROL (test code = 2210) 206 MG/DL TRIGLYCERIDES (test code = 2232) 1120 MG/DL HDL CHOLESTEROL (test code = 24 MG/DL 2220) CALC LDL CHOL (test code = 2237) (NOTE) MG/DL RISK RATIO LDL/HDL (test code = (NOTE) RATIO 2238) COMPREHENSIVE METABOLIC [id number] 00:00:00 Test Item Value Reference Range Interpretation Comments GLUCOSE (test code = 2217) 349 MG/DL BUN (test code = 2208) 17 MG/DL CREATININE (test code = 2214) 0.80 MG/DL eGFR (2020 CKD-EPI) (test code 94 ML/MIN/1.73 = 20067) CALC BUN/CREAT (test code = 21 RATIO [...] (test code = 2219) 39 U/L LIPID [id number] 00:00:00 Test Item Value Reference Range Interpretation Comments CHOLESTEROL (test code = 2210) 206 MG/DL TRIGLYCERIDES (test code = 2232) 1120 MG/DL HDL CHOLESTEROL (test code = 24 MG/DL 2220) CALC LDL CHOL (test code = 2237) (NOTE) MG/DL RISK RATIO LDL/HDL (test code = (NOTE) RATIO 2238) LIPID [id number] 00:00:00 Test Item Value Reference Range Interpretation Comments CHOLESTEROL (test code = 2210) 206 MG/DL TRIGLYCERIDES (test code = 2232) 1120 MG/DL HDL CHOLESTEROL (test code = 24 MG/DL 2220) CALC LDL CHOL (test code = 2237) (NOTE) MG/DL RISK RATIO LDL/HDL (test code = (NOTE) RATIO 2238) COMPREHENSIVE METABOLIC [id number] 00:00:00 Test Item Value Reference Range Interpretation Comments GLUCOSE (test code = 2217) 349 MG/DL BUN (test code = 2208) 17 MG/DL CREATININE (test code = 2214) 0.80 MG/DL eGFR (2020 CKD-EPI) (test code 94 ML/MIN/1.73 = 43174) CALC BUN/CREAT (test code = 21 RATIO [...] code = 2219) 39 U/L COMPREHENSIVE METABOLIC [id number] 00:00:00 Test Item Value Reference Range Interpretation Comments GLUCOSE (test code = 2217) 349 MG/DL BUN (test code = 2208) 17 MG/DL CREATININE (test code = 2214) 0.80 MG/DL eGFR (2020 CKD-EPI) (test code 94 ML/MIN/1.73 = 66670) CALC BUN/CREAT (test code = 21 RATIO [...] (test code = 2219) 39 U/L LIPID [id number] 00:00:00 Test Item Value Reference Range Interpretation Comments CHOLESTEROL (test code = 2210) 206 MG/DL TRIGLYCERIDES (test code = 2232) 1120 MG/DL HDL CHOLESTEROL (test code = 24 MG/DL 2220) CALC LDL CHOL (test code = 2237) (NOTE) MG/DL RISK RATIO LDL/HDL (test code = (NOTE) RATIO 2238) LIPID [id number] 00:00:00 Test Item Value Reference Range Interpretation Comments CHOLESTEROL (test code = 2210) 206 MG/DL TRIGLYCERIDES (test code = 2232) 1120 MG/DL HDL CHOLESTEROL (test code = 24 MG/DL 2220) CALC LDL CHOL (test code = 2237) (NOTE) MG/DL RISK RATIO LDL/HDL (test code = (NOTE) RATIO 2238) COMPREHENSIVE METABOLIC [id number] 00:00:00 Test Item Value Reference Range Interpretation Comments GLUCOSE (test code = 2217) 349 MG/DL BUN (test code = 2208) 17 MG/DL CREATININE (test code = 2214) 0.80 MG/DL eGFR (2020 CKD-EPI) (test code 94 ML/MIN/1.73 = 76338) CALC BUN/CREAT (test code = 21 RATIO [...] code = 2219) 39 U/L COMPREHENSIVE METABOLIC [id number] 00:00:00 Test Item Value Reference Range Interpretation Comments GLUCOSE (test code = 2217) 349 MG/DL BUN (test code = 2208) 17 MG/DL CREATININE (test code = 2214) 0.80 MG/DL eGFR (2020 CKD-EPI) (test code 94 ML/MIN/1.73 = 91738) CALC BUN/CREAT (test code = 21 RATIO [...] (test code = 2219) 39 U/L LIPID [id number] 00:00:00 Test Item Value Reference Range Interpretation Comments CHOLESTEROL (test code = 2210) 206 MG/DL TRIGLYCERIDES (test code = 2232) 1120 MG/DL HDL CHOLESTEROL (test code = 24 MG/DL 2220) CALC LDL CHOL (test code = 2237) (NOTE) MG/DL RISK RATIO LDL/HDL (test code = (NOTE) RATIO 2238) LIPID [id number] 00:00:00 Test Item Value Reference Range Interpretation Comments CHOLESTEROL (test code = 2210) 206 MG/DL TRIGLYCERIDES (test code = 2232) 1120 MG/DL HDL CHOLESTEROL (test code = 24 MG/DL 2220) CALC LDL CHOL (test code = 2237) (NOTE) MG/DL RISK RATIO LDL/HDL (test code = (NOTE) RATIO 2238) COMPREHENSIVE METABOLIC [id number] 00:00:00 Test Item Value Reference Range Interpretation Comments GLUCOSE (test code = 2217) 349 MG/DL BUN (test code = 2208) 17 MG/DL CREATININE (test code = 2214) 0.80 MG/DL eGFR (2020 CKD-EPI) (test code 94 ML/MIN/1.73 = 41484) CALC BUN/CREAT (test code = 21 RATIO [...] code = 2219) 39 U/L COMPREHENSIVE METABOLIC [id number] 00:00:00 Test Item Value Reference Range Interpretation Comments GLUCOSE (test code = 2217) 349 MG/DL BUN (test code = 2208) 17 MG/DL CREATININE (test code = 2214) 0.80 MG/DL eGFR (2020 CKD-EPI) (test code 94 ML/MIN/1.73 = 08235) CALC BUN/CREAT (test code = 21 RATIO [...] (test code = 2219) 39 U/L HEMOGLOBIN [id number] 04:43:57 Test Item Value Reference Range Interpretation Comments HEMOGLOBIN A1c (test 11.5 % 4.2-5.6 H [employer] AN DIABETES code = 11096) ASSOCIATION [employer] FOR HGB A1C: PREDIABETES/INC REASED [...] ATE TESTING OR LABORATORY C ONSULTATION. HEMOGLOBIN [id number] 00:00:00 Test Item Value Reference Range Interpretation Comments HEMOGLOBIN A1c (test code = 29400) 11.5 % HEMOGLOBIN [id number] 00:00:00 Test Item Value Reference Range Interpretation Comments HEMOGLOBIN A1c (test code = 10291) 11.5 % HEMOGLOBIN [id number] 00:00:00 Test Item Value Reference Range Interpretation Comments HEMOGLOBIN A1c (test code = 02080) 11.5 % HEMOGLOBIN [id number] 00:00:00 Test Item Value Reference Range Interpretation Comments HEMOGLOBIN A1c (test code = 67069) 11.5 % HEMOGLOBIN [id number] 00:00:00 Test Item Value Reference Range Interpretation Comments HEMOGLOBIN A1c (test code = 19324) 11.5 % HEMOGLOBIN [id number] 00:00:00 Test Item Value Reference Range Interpretation Comments HEMOGLOBIN A1c (test code = 84013) 11.5 % HEMOGLOBIN [id number] 00:00:00 Test Item Value Reference Range Interpretation Comments HEMOGLOBIN A1c (test code = 26816) 11.5 % HEMOGLOBIN [id number] 00:00:00 Test Item Value Reference Range Interpretation Comments HEMOGLOBIN A1c (test code = 53651) 11.5 % HEMOGLOBIN [id number] 00:00:00 Test Item Value Reference Range Interpretation Comments HEMOGLOBIN A1c (test code = 31156) 11.5 % HEMOGLOBIN [id number] 00:00:00 Test Item Value Reference Range Interpretation Comments HEMOGLOBIN A1c (test code = 61451) 11.5 % HEMOGLOBIN [id number] 00:00:00 Test Item Value Reference Range Interpretation Comments HEMOGLOBIN A1c (test code = 26490) 11.5 % HEMOGLOBIN [id number] 00:00:00 Test Item Value Reference Range Interpretation Comments HEMOGLOBIN A1c (test code = 27143) 11.5 % HEMOGLOBIN [id number] 00:00:00 Test Item Value Reference Range Interpretation Comments HEMOGLOBIN A1c (test code = 07095) 11.5 % HEMOGLOBIN [id number] 00:00:00 Test Item Value Reference Range Interpretation Comments HEMOGLOBIN A1c (test code = 11982) 11.5 % HEMOGLOBIN [id number] 00:00:00 Test Item Value Reference Range Interpretation Comments HEMOGLOBIN A1c (test code = 71347) 11.5 % HEMOGLOBIN [id number] 00:00:00 Test Item Value Reference Range Interpretation Comments HEMOGLOBIN A1c (test code = 41160) 11.5 % HEMOGLOBIN [id number] 00:00:00 Test Item Value Reference Range Interpretation Comments HEMOGLOBIN A1c (test code = 42914) 11.5 % HEMOGLOBIN [id number] 00:00:00 Test Item Value Reference Range Interpretation Comments HEMOGLOBIN A1c (test code = 35623) 11.5 % HEMOGLOBIN [id number] 00:00:00 Test Item Value Reference Range Interpretation Comments HEMOGLOBIN A1c (test code = 15947) 11.5 % HEMOGLOBIN [id number] 00:00:00 Test Item Value Reference Range Interpretation Comments HEMOGLOBIN A1c (test code = 44010) 11.5 % HEMOGLOBIN [id number] 00:00:00 Test Item Value Reference Range Interpretation Comments HEMOGLOBIN A1c (test code = 64176) 11.5 % HEMOGLOBIN [id number] 00:00:00 Test Item Value Reference Range Interpretation Comments HEMOGLOBIN A1c (test code = 02553) 11.5 % HEMOGLOBIN [id number] 00:00:00 Test Item Value Reference Range Interpretation Comments HEMOGLOBIN A1c (test code = 72601) 11.5 % HEMOGLOBIN [id number] 00:00:00 Test Item Value Reference Range Interpretation Comments HEMOGLOBIN A1c (test code = 82571) 11.5 % HEMOGLOBIN [id number] 00:00:00 Test Item Value Reference Range Interpretation Comments HEMOGLOBIN A1c (test code = 27470) 11.5 % HEMOGLOBIN [id number] 00:00:00 Test Item Value Reference Range Interpretation Comments HEMOGLOBIN A1c (test code = 14117) 11.5 % HEMOGLOBIN [id number] 00:00:00 Test Item Value Reference Range Interpretation Comments HEMOGLOBIN A1c (test code = 41488) 11.5 % HEMOGLOBIN [id number] 00:00:00 Test Item Value Reference Range Interpretation Comments HEMOGLOBIN A1c (test code = 02390) 11.5 % HEMOGLOBIN [id number] 00:00:00 Test Item Value Reference Range Interpretation Comments HEMOGLOBIN A1c (test code = 69839) 11.5 % HEMOGLOBIN [id number] 00:00:00 Test Item Value Reference Range Interpretation Comments HEMOGLOBIN A1c (test code = 55518) 11.5 % HEMOGLOBIN [id number] 00:00:00 Test Item Value Reference Range Interpretation Comments HEMOGLOBIN A1c (test code = 79371) 11.5 % HEMOGLOBIN [id number] 00:00:00 Test Item Value Reference Range Interpretation Comments HEMOGLOBIN A1c (test code = 06514) 11.5 % CULTURE, [id number] 11:34:56SPECIMEN NUMBER: [id number] CULTURE, URINE SPECIMEN NUMBER: [id number] SPECIMEN COMMENT: URINE SOURCE:URINE REPORT STATUS: FINAL FINAL REPORT: 10/25/2021 10-50,000 CFU/ML UROGENITAL NORMA PRESENT NO COMM ON PATHOGENSCULTURE, [id number] 00:00:00 Test Item Value Reference Range Interpretation Comments CULTURE, URINE (test SPECIMEN NUMBER: code = 30789) [id number] CULTURE, [id number] 00:00:00 Test Item Value Reference Range Interpretation Comments CULTURE, URINE (test SPECIMEN NUMBER: code = 97524) [id number] CULTURE, [id number] 00:00:00 Test Item Value Reference Range Interpretation Comments CULTURE, URINE (test SPECIMEN NUMBER: code = 61338) [id number] CULTURE, [id number] 00:00:00 Test Item Value Reference Range Interpretation Comments CULTURE, URINE (test SPECIMEN NUMBER: code = 98468) [id number] CULTURE, [id number] 00:00:00 Test Item Value Reference Range Interpretation Comments CULTURE, URINE (test SPECIMEN NUMBER: code = 48800) [id number] CULTURE, [id number] 00:00:00 Test Item Value Reference Range Interpretation Comments CULTURE, URINE (test SPECIMEN NUMBER: code = 45223) [id number] CULTURE, [id number] 00:00:00 Test Item Value Reference Range Interpretation Comments CULTURE, URINE (test SPECIMEN NUMBER: code = 45559) [id number] CULTURE, [id number] 00:00:00 Test Item Value Reference Range Interpretation Comments CULTURE, URINE (test SPECIMEN NUMBER: code = 98452) [id number] CULTURE, [id number] 00:00:00 Test Item Value Reference Range Interpretation Comments CULTURE, URINE (test SPECIMEN NUMBER: code = 06481) [id number] CULTURE, [id number] 00:00:00 Test Item Value Reference Range Interpretation Comments CULTURE, URINE (test SPECIMEN NUMBER: code = 89703) [id number] CULTURE, [id number] 00:00:00 Test Item Value Reference Range Interpretation Comments CULTURE, URINE (test SPECIMEN NUMBER: code = 05702) [id number] CULTURE, [id number] 00:00:00 Test Item Value Reference Range Interpretation Comments CULTURE, URINE (test SPECIMEN NUMBER: code = 08851) [id number] CULTURE, [id number] 00:00:00 Test Item Value Reference Range Interpretation Comments CULTURE, URINE (test SPECIMEN NUMBER: code = 04790) [id number] CULTURE, [id number] 00:00:00 Test Item Value Reference Range Interpretation Comments CULTURE, URINE (test SPECIMEN NUMBER: code = 39876) [id number] CULTURE, [id number] 00:00:00 Test Item Value Reference Range Interpretation Comments CULTURE, URINE (test SPECIMEN NUMBER: code = 16230) [id number] CULTURE, [id number] 00:00:00 Test Item Value Reference Range Interpretation Comments CULTURE, URINE (test SPECIMEN NUMBER: code = 32375) [id number] CULTURE, [id number] 00:00:00 Test Item Value Reference Range Interpretation Comments CULTURE, URINE (test SPECIMEN NUMBER: code = 95035) [id number] CULTURE, [id number] 00:00:00 Test Item Value Reference Range Interpretation Comments CULTURE, URINE (test SPECIMEN NUMBER: code = 22856) [id number] CULTURE, [id number] 00:00:00 Test Item Value Reference Range Interpretation Comments CULTURE, URINE (test SPECIMEN NUMBER: code = 36436) [id number] CULTURE, [id number] 00:00:00 Test Item Value Reference Range Interpretation Comments CULTURE, URINE (test SPECIMEN NUMBER: code = 46396) [id number] CULTURE, [id number] 00:00:00 Test Item Value Reference Range Interpretation Comments CULTURE, URINE (test SPECIMEN NUMBER: code = 62943) [id number] VAGINAL PATHOGENS DNA [id number] 11:55:20 Test Item Value Reference Range Interpretation Comments ANDIE SPECIES (test NEGATIVE NEGATIVE code = 30867) G. VAGINALIS (test NEGATIVE NEGATIVE code = 64789) T. VAGINALIS (test NEGATIVE NEGATIVE UNLESS O THERWISE code = 00182) INDICATED, ALL TESTING PERFORMED [facility]Y [facility] [address] [place] [address] 4 LABORATORY DIRE CTOR: NOAH TODD M.D. CLIA NUMBER [id number] [facility] [place]. [id number] VAGINAL PATHOGENS DNA [id number] 00:00:00 Test Item Value Reference Range Interpretation Comments ANDIE SPECIES (test code = 25488) NEGATIVE G. VAGINALIS (test code = 89414) NEGATIVE T. VAGINALIS (test code = 90423) NEGATIVE VAGINAL PATHOGENS DNA [id number] 00:00:00 Test Item Value Reference Range Interpretation Comments ANDIE SPECIES (test code = 67509) NEGATIVE G. VAGINALIS (test code = 74833) NEGATIVE T. VAGINALIS (test code = 22934) NEGATIVE VAGINAL PATHOGENS DNA [id number] 00:00:00 Test Item Value Reference Range Interpretation Comments ANDIE SPECIES (test code = 34507) NEGATIVE G. VAGINALIS (test code = 45145) NEGATIVE T. VAGINALIS (test code = 32255) NEGATIVE VAGINAL PATHOGENS DNA [id number] 00:00:00 Test Item Value Reference Range Interpretation Comments ANDIE SPECIES (test code = 23037) NEGATIVE G. VAGINALIS (test code = 18437) NEGATIVE T. VAGINALIS (test code = 80899) NEGATIVE VAGINAL PATHOGENS DNA [id number] 00:00:00 Test Item Value Reference Range Interpretation Comments ANDIE SPECIES (test code = 01698) NEGATIVE G. VAGINALIS (test code = 64989) NEGATIVE T. VAGINALIS (test code = 07879) NEGATIVE VAGINAL PATHOGENS DNA [id number] 00:00:00 Test Item Value Reference Range Interpretation Comments ANDIE SPECIES (test code = 87384) NEGATIVE G. VAGINALIS (test code = 55667) NEGATIVE T. VAGINALIS (test code = 63922) NEGATIVE VAGINAL PATHOGENS DNA [id number] 00:00:00 Test Item Value Reference Range Interpretation Comments ANDIE SPECIES (test code = 70608) NEGATIVE G. VAGINALIS (test code = 49102) NEGATIVE T. VAGINALIS (test code = 27641) NEGATIVE VAGINAL PATHOGENS DNA [id number] 00:00:00 Test Item Value Reference Range Interpretation Comments ANDIE SPECIES (test code = 09463) NEGATIVE G. VAGINALIS (test code = 83034) NEGATIVE T. VAGINALIS (test code = 68810) NEGATIVE VAGINAL PATHOGENS DNA [id number] 00:00:00 Test Item Value Reference Range Interpretation Comments ANDIE SPECIES (test code = 29956) NEGATIVE G. VAGINALIS (test code = 56161) NEGATIVE T. VAGINALIS (test code = 83322) NEGATIVE VAGINAL PATHOGENS DNA [id number] 00:00:00 Test Item Value Reference Range Interpretation Comments ANDIE SPECIES (test code = 90755) NEGATIVE G. VAGINALIS (test code = 55284) NEGATIVE T. VAGINALIS (test code = 03290) NEGATIVE VAGINAL PATHOGENS DNA [id number] 00:00:00 Test Item Value Reference Range Interpretation Comments ANDIE SPECIES (test code = 63282) NEGATIVE G. VAGINALIS (test code = 23308) NEGATIVE T. VAGINALIS (test code = 24994) NEGATIVE VAGINAL PATHOGENS DNA [id number] 00:00:00 Test Item Value Reference Range Interpretation Comments ANDIE SPECIES (test code = 89458) NEGATIVE G. VAGINALIS (test code = 79730) NEGATIVE T. VAGINALIS (test code = 93840) NEGATIVE VAGINAL PATHOGENS DNA [id number] 00:00:00 Test Item Value Reference Range Interpretation Comments ANDIE SPECIES (test code = 53657) NEGATIVE G. VAGINALIS (test code = 89495) NEGATIVE T. VAGINALIS (test code = 00704) NEGATIVE VAGINAL PATHOGENS DNA [id number] 00:00:00 Test Item Value Reference Range Interpretation Comments ANDIE SPECIES (test code = 56015) NEGATIVE G. VAGINALIS (test code = 63940) NEGATIVE T. VAGINALIS (test code = 31935) NEGATIVE VAGINAL PATHOGENS DNA [id number] 00:00:00 Test Item Value Reference Range Interpretation Comments ANDIE SPECIES (test code = 81246) NEGATIVE G. VAGINALIS (test code = 93257) NEGATIVE T. VAGINALIS (test code = 37774) NEGATIVE VAGINAL PATHOGENS DNA [id number] 00:00:00 Test Item Value Reference Range Interpretation Comments ANDIE SPECIES (test code = 02251) NEGATIVE G. VAGINALIS (test code = 73351) NEGATIVE T. VAGINALIS (test code = 34785) NEGATIVE VAGINAL PATHOGENS DNA [id number] 00:00:00 Test Item Value Reference Range Interpretation Comments ANDIE SPECIES (test code = 76798) NEGATIVE G. VAGINALIS (test code = 79673) NEGATIVE T. VAGINALIS (test code = 13772) NEGATIVE VAGINAL PATHOGENS DNA [id number] 00:00:00 Test Item Value Reference Range Interpretation Comments ANDIE SPECIES (test code = 38317) NEGATIVE G. VAGINALIS (test code = 86203) NEGATIVE T. VAGINALIS (test code = 06676) NEGATIVE VAGINAL PATHOGENS DNA [id number] 00:00:00 Test Item Value Reference Range Interpretation Comments ANDIE SPECIES (test code = 84230) NEGATIVE G. VAGINALIS (test code = 35881) NEGATIVE T. VAGINALIS (test code = 16882) NEGATIVE VAGINAL PATHOGENS DNA [id number] 00:00:00 Test Item Value Reference Range Interpretation Comments ANDIE SPECIES (test code = 69506) NEGATIVE G. VAGINALIS (test code = 84992) NEGATIVE T. VAGINALIS (test code = 94656) NEGATIVE VAGINAL PATHOGENS DNA [id number] 00:00:00 Test Item Value Reference Range Interpretation Comments ANDIE SPECIES (test code = 64092) NEGATIVE G. VAGINALIS (test code = 36723) NEGATIVE T. VAGINALIS (test code = 79759) NEGATIVE POCT GLUCOSE (AUTOMATED)2021-10-17 01:51:54 Test Item Value Reference Range Interpretation Comments POCT GLU (test code = 5150044344) 365 mg/dL 70-110 H Lab Interpretation (test code = Abnormal 91862-4) [facility] GLUCOSE (AUTOMATED)2021-10-17 00:46:51 Test Item Value Reference Range Interpretation Comments POCT GLU (test code = 7055512210) 435 mg/dL 70-110 H Lab Interpretation (test code = Abnormal 26313-7) [facility] GLUCOSE(AGE >30DAYS)2021-10-17 00:41:00 Test Item Value Reference Range Interpretation Comments POCT Glu (age>30days) (test code = 435 mg/dL 70-110 A 3342) Lab Interpretation (test code = Abnormal 47181-9) [facility] [id number] 23:40:42 Test Item Value Reference Interpretation Comments Range TROPONIN I (test 0.001 ng/mL See_Comment [Automated code = 3705879333) message] The system which generated this result [...] biotin. Lab Interpretation Normal (test code = 40792-6) [facility] [id number] 23:37:40 Test Item Value Reference Range Interpretation Comments NT-proBNP (test code 20 pg/mL See_Comment [Autom ated = 7962083658) message] The system which generated this result transmitted reference range : <=125. The reference range was not used to interpret this result as normal/abnormal . CALVIN (test code = CALVIN) Biotin has been reported to cause a negative bias, interpret results relative to patient's use of biotin. Lab Interpretation Normal (test code = 11958-4) [facility] (08563)2021-10-16 23:29:18 Test Item Value Reference Range Interpretation Comments NA (test code = 134 mmol/L 135-145 L 4431681251) K (test code = 4.4 mmol/L 3.5-5.0 9960747293) CL (test code = 97 mmol/L 98-108 L 9562606646) CO2 TOTAL (test code = 23 mmol/L 23-31 1382918488) AGAP (test code = 2-16 0933967130) BUN (test code = 21 mg/dL 7-23 8126140489) GLUCOSE (test code = 431 mg/dL 70-110 H 5233268503) CREATININE (test code = 0.88 mg/dL 0.50-1.04 3468595891) TOTAL BILI (test code = 0.5 mg/dL 0.1-1.7 9040352637) CALCIUM (test code = 9.2 mg/dL 8.6-10.6 1477509698) T PROTEIN (test code = 7.4 g/dL 6.3-8.2 6142273960) ALBUMIN (test code = 4.7 g/dL 3.5-5.0 2678848036) ALK PHOS (test code = 52 U/L 34-122 1989944749) ALTv (test code = 30 U/L 5-35 1742-6) AST(SGOT) (test code = 25 U/L 13-40 7817170589) eGFR (test code = mL/min/1.73m2 0224030308) CALVIN (test code = CALVIN) Association of [...] tests). Lab Interpretation Abnormal (test code = 72471-0) [facility] WITH [id number] 23:20:10 Test Item Value Reference Range Interpretation Comments WBC (test code = See_Comment [Automated 3507-2) message] The sy stem which generated this result transmitted reference range : 4.30 - 11.10 10*3/?L. The reference range was not used to interpret this result as normal/abnormal . RBC (test code = See_Comment [Automated 264-8) message] The sy stem which generated this [...] RDW-SD (test code = 40.5 fL 39.0-49.9 07585-2) RDW-CV (test code = 13.5 % 12.0-15.5 788-0) PLT (test code = See_Comment [Automated 582-3) message] The sy stem which generated this result transmitted reference range : 166 - 358 10*3/ ?L. The reference r doretha was not used to interpret this result as normal/abnormal . MPV (test code = 9.6 fL 9.5-12.9 58310-0) NRBC/100 WBC (test See_Comment [Automat ed code = 7989307323) message] The system which generated this result transmitted reference range : 0.0 - 10.0 /100 WBCs. The refer ence range was not u sed to interpret th is result as normal/abnormal . NRBC x10^3 (test code <0.01 See_Comment [Auto mated = 3481812202) message] The s ystem which generated this result transmitted reference range : 10*3/?L. The reference range was not used to interpret this result as normal/abnormal . GRAN MAT (NEUT) % 43.2 % (test code = 770-8) IMM GRAN % (test code 0.70 % = 5014463092) LYMPH % (test code = 42.8 % 736-9) MONO % (test code = 9.2 % 5905-5) EOS % (test code = 3.0 % 713-8) BASO % (test code = 1.1 % 706-2) GRAN MAT x10^3(ANC) 3.15 10*3/uL 1.88-7.09 (test code = 4102947353) IMM GRAN x10^3 (test 0.05 10*3/uL 0.00-0.06 code = 7386122360) LYMPH x10^3 (test code 3.12 10*3/uL 1.32-3.29 = 731-0) MONO x10^3 (test code 0.67 10*3/uL 0.33-0.92 = 742-7) EOS x10^3 (test code = 0.22 10*3/uL 0.03-0.39 711-2) BASO x10^3 (test code 0.08 10*3/uL 0.01-0.07 H = 704-7) Lab Interpretation Abnormal (test code = 13629-7) [facility] Whole [id number] 23:09:32 Test Item Value Reference Range Interpretation Comments LACTIC ACID (test code = 1.94 mmol/L 0.50-2.20 4048220330) Lab Interpretation (test code = Normal 61603-7) [facility]PO[facility] [id number] 22:34:00 Test Item Value Reference Range Interpretation Comments POCT PREG (test code = 1605) Negative On board controls acceptable with Present C Line (test code = 3574) POCT PREG LOT # (test code = 3575) [id number] POCT PREG TEST DATE (test 2023-04-09 code = 3576) Lab Interpretation (test code = Normal 52812-6) [facility] [id number] 08:52:36SPECIMEN NUMBER: [id number] CULTURE, URINE SPECIMEN NUMBER: [id number] SPECIMEN COMMENT: URINE SOURCE: URINE REPORT STATUS: FINAL FINAL REPORT: 10/12/2021 >100,000 CFU/ML UROGENITAL NORMA PRESENT NO COMMON PATHOGENS UNLESS OTHERWISE INDICATED, ALL TESTING PERFORMED ATCLINICAL PATHOLOGY [employer],[facility]. [address] [place] [address] IN [place] MEMBER: NOAH DICKENS M.D. CLIA NUMBER [id number] [facility] [place]. [id number], [id number] 00:00:00 Test Item Value Reference Range Interpretation Comments CULTURE, URINE (test SPECIMEN NUMBER: code = 48211) [id number] CULTURE, [id number] 00:00:00 Test Item Value Reference Range Interpretation Comments CULTURE, URINE (test SPECIMEN NUMBER: code = 91715) [id number] CULTURE, [id number] 00:00:00 Test Item Value Reference Range Interpretation Comments CULTURE, URINE (test SPECIMEN NUMBER: code = 42702) [id number] CULTURE, [id number] 00:00:00 Test Item Value Reference Range Interpretation Comments CULTURE, URINE (test SPECIMEN NUMBER: code = 52767) [id number] CULTURE, [id number] 00:00:00 Test Item Value Reference Range Interpretation Comments CULTURE, URINE (test SPECIMEN NUMBER: code = 15398) [id number] CULTURE, [id number] 00:00:00 Test Item Value Reference Range Interpretation Comments CULTURE, URINE (test SPECIMEN NUMBER: code = 92223) [id number] CULTURE, [id number] 00:00:00 Test Item Value Reference Range Interpretation Comments CULTURE, URINE (test SPECIMEN NUMBER: code = 74821) [id number] CULTURE, [id number] 00:00:00 Test Item Value Reference Range Interpretation Comments CULTURE, URINE (test SPECIMEN NUMBER: code = 48909) [id number] CULTURE, [id number] 00:00:00 Test Item Value Reference Range Interpretation Comments CULTURE, URINE (test SPECIMEN NUMBER: code = 62499) [id number] CULTURE, [id number] 00:00:00 Test Item Value Reference Range Interpretation Comments CULTURE, URINE (test SPECIMEN NUMBER: code = 22892) [id number] CULTURE, [id number] 00:00:00 Test Item Value Reference Range Interpretation Comments CULTURE, URINE (test SPECIMEN NUMBER: code = 58745) [id number] CULTURE, [id number] 00:00:00 Test Item Value Reference Range Interpretation Comments CULTURE, URINE (test SPECIMEN NUMBER: code = 61605) [id number] CULTURE, [id number] 00:00:00 Test Item Value Reference Range Interpretation Comments CULTURE, URINE (test SPECIMEN NUMBER: code = 45895) [id number] CULTURE, [id number] 00:00:00 Test Item Value Reference Range Interpretation Comments CULTURE, URINE (test SPECIMEN NUMBER: code = 15095) [id number] CULTURE, [id number] 00:00:00 Test Item Value Reference Range Interpretation Comments CULTURE, URINE (test SPECIMEN NUMBER: code = 53619) [id number] CULTURE, [id number] 00:00:00 Test Item Value Reference Range Interpretation Comments CULTURE, URINE (test SPECIMEN NUMBER: code = 24804) [id number] CULTURE, [id number] 00:00:00 Test Item Value Reference Range Interpretation Comments CULTURE, URINE (test SPECIMEN NUMBER: code = 00465) [id number] CULTURE, [id number] 00:00:00 Test Item Value Reference Range Interpretation Comments CULTURE, URINE (test SPECIMEN NUMBER: code = 79744) [id number] CULTURE, [id number] 00:00:00 Test Item Value Reference Range Interpretation Comments CULTURE, URINE (test SPECIMEN NUMBER: code = 85472) [id number] CULTURE, [id number] 00:00:00 Test Item Value Reference Range Interpretation Comments CULTURE, URINE (test SPECIMEN NUMBER: code = 27868) [id number] CULTURE, [id number] 00:00:00 Test Item Value Reference Range Interpretation Comments CULTURE, URINE (test SPECIMEN NUMBER: code = 00233) [id number] URINE CULTURE, NO [id number] 09:46:36SPECIMEN NUMBER: [id number] URINE CULTURE, NO SENS SPECIMEN NUMBER: [id number] SPECIMEN COMMENT: URINESOURCE: URINE REPORT STATUS: FINAL FINAL REPORT: 10/08/2021 50-100,000 CFU/ML UROGENITAL NORMA PRESENT NO COMMON PATHOGENSURINE CULTURE, NO [id number] 00:00:00 Test Item Value Reference Range Interpretation Comments URINE CULTURE, NO SPECIMEN NUMBER: SENS (test code = 001195132 34479) URINE CULTURE, NO [id number] 00:00:00 Test Item Value Reference Range Interpretation Comments URINE CULTURE, NO SPECIMEN NUMBER: SENS (test code = 986802512 56622) URINE CULTURE, NO [id number] 00:00:00 Test Item Value Reference Range Interpretation Comments URINE CULTURE, NO SPECIMEN NUMBER: SENS (test code = 982790902 45666) URINE CULTURE, NO [id number] 00:00:00 Test Item Value Reference Range Interpretation Comments URINE CULTURE, NO SPECIMEN NUMBER: SENS (test code = 419582149 30680) URINE CULTURE, NO [id number] 00:00:00 Test Item Value Reference Range Interpretation Comments URINE CULTURE, NO SPECIMEN NUMBER: SENS (test code = 512015970 53580) URINE CULTURE, NO [id number] 00:00:00 Test Item Value Reference Range Interpretation Comments URINE CULTURE, NO SPECIMEN NUMBER: SENS (test code = 065511138 99637) URINE CULTURE, NO [id number] 00:00:00 Test Item Value Reference Range Interpretation Comments URINE CULTURE, NO SPECIMEN NUMBER: SENS (test code = 138889867 10430) URINE CULTURE, NO [id number] 00:00:00 Test Item Value Reference Range Interpretation Comments URINE CULTURE, NO SPECIMEN NUMBER: SENS (test code = 797334888 74434) URINE CULTURE, NO [id number] 00:00:00 Test Item Value Reference Range Interpretation Comments URINE CULTURE, NO SPECIMEN NUMBER: SENS (test code = 490910876 45633) URINE CULTURE, NO [id number] 00:00:00 Test Item Value Reference Range Interpretation Comments URINE CULTURE, NO SPECIMEN NUMBER: SENS (test code = 140710290 98305) URINE CULTURE, NO [id number] 00:00:00 Test Item Value Reference Range Interpretation Comments URINE CULTURE, NO SPECIMEN NUMBER: SENS (test code = 155710536 83397) URINE CULTURE, NO [id number] 00:00:00 Test Item Value Reference Range Interpretation Comments URINE CULTURE, NO SPECIMEN NUMBER: SENS (test code = 042849623 88211) URINE CULTURE, NO [id number] 00:00:00 Test Item Value Reference Range Interpretation Comments URINE CULTURE, NO SPECIMEN NUMBER: SENS (test code = 275104252 18389) URINE CULTURE, NO [id number] 00:00:00 Test Item Value Reference Range Interpretation Comments URINE CULTURE, NO SPECIMEN NUMBER: SENS (test code = 380061667 56950) URINE CULTURE, NO [id number] 00:00:00 Test Item Value Reference Range Interpretation Comments URINE CULTURE, NO SPECIMEN NUMBER: SENS (test code = 224871865 85465) URINE CULTURE, NO [id number] 00:00:00 Test Item Value Reference Range Interpretation Comments URINE CULTURE, NO SPECIMEN NUMBER: SENS (test code = [id number]) URINE CULTURE, NO [id number] 00:00:00 Test Item Value Reference Range Interpretation Comments URINE CULTURE, NO SPECIMEN NUMBER: SENS (test code = [id number]) URINE CULTURE, NO [id number] 00:00:00 Test Item Value Reference Range Interpretation Comments URINE CULTURE, NO SPECIMEN NUMBER: SENS (test code = [id number]) URINE CULTURE, NO [id number] 00:00:00 Test Item Value Reference Range Interpretation Comments URINE CULTURE, NO SPECIMEN NUMBER: SENS (test code = 798594088 81178) URINE CULTURE, NO [id number] 00:00:00 Test Item Value Reference Range Interpretation Comments URINE CULTURE, NO SPECIMEN NUMBER: SENS (test code = 425057327 75450) URINE CULTURE, NO [id number] 00:00:00 Test Item Value Reference Range Interpretation Comments URINE CULTURE, NO SPECIMEN NUMBER: SENS (test code = 250070514 20868) CBC W/AUTO DIFF WITH [id number] 07:54:02 Test Item Value Reference Range Interpretation [...] RBCS 0.00 K/UL 0.00-0.11 (test code = 79392) COMPREHENSIVE METABOLIC [id number] 05:34:02 Test Item Value Reference Range Interpretation Comments GLUCOSE (test code = 108 MG/DL 70-99 H 2216) BUN (test code = 17 MG/DL 6-20 2207) CREATININE (test 0.84 MG/DL 0.60-1.30 code = 2214) eGFR (2020 CKD-EPI) 88 >60 (test code = 75619) ML/MIN/1.73 CALC BUN/CREAT (test 20 RATIO 6-28 code = 2235) SODIUM (test code = 141 MEQ/L 311-971 6285) POTASSIUM (test code 4.0 MEQ/L 3.5-5.4 = [...] [Automated message] (test code = 2206) The [email or web address] which generated this result transmitted ref erence [...] [facility] [place]. [address] [place] [address] [facility] DIRECTOR: NOAH DICKENS M.D. CLIA NUMBER [id number] CAP ACCREDITATION N O. [id number] CBC W/AUTO [id number] 00:00:00 Test Item Value Reference Range Interpretation [...] NUCLEATED RBCS (test code = 0.00 K/UL 22477) CBC W/AUTO [id number] 00:00:00 Test Item Value Reference Range Interpretation [...] NUCLEATED RBCS (test code = 0.00 K/UL 29619) CBC W/AUTO [id number] 00:00:00 Test Item Value Reference Range Interpretation [...] NUCLEATED RBCS (test code = 0.00 K/UL 69525) COMPREHENSIVE METABOLIC [id number] 00:00:00 Test Item Value Reference Range Interpretation Comments GLUCOSE (test code = 2217) 108 MG/DL BUN (test code = 2208) 17 MG/DL CREATININE (test code = 2214) 0.84 MG/DL eGFR (2020 CKD-EPI) (test code 88 ML/MIN/1.73 = 02537) CALC BUN/CREAT (test code = 20 RATIO [...] code = 2219) 28 U/L COMPREHENSIVE METABOLIC [id number] 00:00:00 Test Item Value Reference Range Interpretation Comments GLUCOSE (test code = 2217) 108 MG/DL BUN (test code = 2208) 17 MG/DL CREATININE (test code = 2214) 0.84 MG/DL eGFR (2020 CKD-EPI) (test code 88 ML/MIN/1.73 = 42867) CALC BUN/CREAT (test code = 20 RATIO [...] code = 2219) 28 U/L CBC W/AUTO [id number] 00:00:00 Test Item Value Reference Range Interpretation [...] NUCLEATED RBCS (test code = 0.00 K/UL 28033) CBC W/AUTO [id number] 00:00:00 Test Item Value Reference Range Interpretation [...] NUCLEATED RBCS (test code = 0.00 K/UL 86382) CBC W/AUTO [id number] 00:00:00 Test Item Value Reference Range Interpretation [...] NUCLEATED RBCS (test code = 0.00 K/UL 72277) COMPREHENSIVE METABOLIC [id number] 00:00:00 Test Item Value Reference Range Interpretation Comments GLUCOSE (test code = 2217) 108 MG/DL BUN (test code = 2208) 17 MG/DL CREATININE (test code = 2214) 0.84 MG/DL eGFR (2020 CKD-EPI) (test code 88 ML/MIN/1.73 = 48879) CALC BUN/CREAT (test code = 20 RATIO [...] code = 2219) 28 U/L COMPREHENSIVE METABOLIC [id number] 00:00:00 Test Item Value Reference Range Interpretation Comments GLUCOSE (test code = 2217) 108 MG/DL BUN (test code = 2208) 17 MG/DL CREATININE (test code = 2214) 0.84 MG/DL eGFR (2020 CKD-EPI) (test code 88 ML/MIN/1.73 = 49295) CALC BUN/CREAT (test code = 20 RATIO [...] code = 2219) 28 U/L CBC W/AUTO [id number] 00:00:00 Test Item Value Reference Range Interpretation [...] NUCLEATED RBCS (test code = 0.00 K/UL 50666) CBC W/AUTO [id number] 00:00:00 Test Item Value Reference Range Interpretation [...] NUCLEATED RBCS (test code = 0.00 K/UL 87866) CBC W/AUTO [id number] 00:00:00 Test Item Value Reference Range Interpretation [...] NUCLEATED RBCS (test code = 0.00 K/UL 91699) COMPREHENSIVE METABOLIC [id number] 00:00:00 Test Item Value Reference Range Interpretation Comments GLUCOSE (test code = 2217) 108 MG/DL BUN (test code = 2208) 17 MG/DL CREATININE (test code = 2214) 0.84 MG/DL eGFR (2020 CKD-EPI) (test code 88 ML/MIN/1.73 = 52581) CALC BUN/CREAT (test code = 20 RATIO [...] code = 2219) 28 U/L COMPREHENSIVE METABOLIC [id number] 00:00:00 Test Item Value Reference Range Interpretation Comments GLUCOSE (test code = 2217) 108 MG/DL BUN (test code = 2208) 17 MG/DL CREATININE (test code = 2214) 0.84 MG/DL eGFR (2020 CKD-EPI) (test code 88 ML/MIN/1.73 = 66529) CALC BUN/CREAT (test code = 20 RATIO [...] code = 2219) 28 U/L CBC W/AUTO [id number] 00:00:00 Test Item Value Reference Range Interpretation [...] NUCLEATED RBCS (test code = 0.00 K/UL 71837) CBC W/AUTO [id number] 00:00:00 Test Item Value Reference Range Interpretation [...] NUCLEATED RBCS (test code = 0.00 K/UL 07027) CBC W/AUTO [id number] 00:00:00 Test Item Value Reference Range Interpretation [...] NUCLEATED RBCS (test code = 0.00 K/UL 16834) COMPREHENSIVE METABOLIC [id number] 00:00:00 Test Item Value Reference Range Interpretation Comments GLUCOSE (test code = 2217) 108 MG/DL BUN (test code = 2208) 17 MG/DL CREATININE (test code = 2214) 0.84 MG/DL eGFR (2020 CKD-EPI) (test code 88 ML/MIN/1.73 = 02843) CALC BUN/CREAT (test code = 20 RATIO [...] code = 2219) 28 U/L COMPREHENSIVE METABOLIC [id number] 00:00:00 Test Item Value Reference Range Interpretation Comments GLUCOSE (test code = 2217) 108 MG/DL BUN (test code = 2208) 17 MG/DL CREATININE (test code = 2214) 0.84 MG/DL eGFR (2020 CKD-EPI) (test code 88 ML/MIN/1.73 = 52450) CALC BUN/CREAT (test code = 20 RATIO [...] code = 2219) 28 U/L CBC W/AUTO [id number] 00:00:00 Test Item Value Reference Range Interpretation [...] NUCLEATED RBCS (test code = 0.00 K/UL 29251) CBC W/AUTO [id number] 00:00:00 Test Item Value Reference Range Interpretation [...] NUCLEATED RBCS (test code = 0.00 K/UL 61834) CBC W/AUTO [id number] 00:00:00 Test Item Value Reference Range Interpretation [...] NUCLEATED RBCS (test code = 0.00 K/UL 04242) COMPREHENSIVE METABOLIC [id number] 00:00:00 Test Item Value Reference Range Interpretation Comments GLUCOSE (test code = 2217) 108 MG/DL BUN (test code = 2208) 17 MG/DL CREATININE (test code = 2214) 0.84 MG/DL eGFR (2020 CKD-EPI) (test code 88 ML/MIN/1.73 = 39593) CALC BUN/CREAT (test code = 20 RATIO [...] code = 2219) 28 U/L COMPREHENSIVE METABOLIC [id number] 00:00:00 Test Item Value Reference Range Interpretation Comments GLUCOSE (test code = 2217) 108 MG/DL BUN (test code = 2208) 17 MG/DL CREATININE (test code = 2214) 0.84 MG/DL eGFR (2020 CKD-EPI) (test code 88 ML/MIN/1.73 = 14888) CALC BUN/CREAT (test code = 20 RATIO [...] code = 2219) 28 U/L CBC W/AUTO [id number] 00:00:00 Test Item Value Reference Range Interpretation [...] NUCLEATED RBCS (test code = 0.00 K/UL 65071) CBC W/AUTO [id number] 00:00:00 Test Item Value Reference Range Interpretation [...] NUCLEATED RBCS (test code = 0.00 K/UL 86311) CBC W/AUTO [id number] 00:00:00 Test Item Value Reference Range Interpretation [...] NUCLEATED RBCS (test code = 0.00 K/UL 59872) COMPREHENSIVE METABOLIC [id number] 00:00:00 Test Item Value Reference Range Interpretation Comments GLUCOSE (test code = 2217) 108 MG/DL BUN (test code = 2208) 17 MG/DL CREATININE (test code = 2214) 0.84 MG/DL eGFR (2020 CKD-EPI) (test code 88 ML/MIN/1.73 = 01683) CALC BUN/CREAT (test code = 20 RATIO [...] code = 2219) 28 U/L COMPREHENSIVE METABOLIC [id number] 00:00:00 Test Item Value Reference Range Interpretation Comments GLUCOSE (test code = 2217) 108 MG/DL BUN (test code = 2208) 17 MG/DL CREATININE (test code = 2214) 0.84 MG/DL eGFR (2020 CKD-EPI) (test code 88 ML/MIN/1.73 = 19950) CALC BUN/CREAT (test code = 20 RATIO [...] code = 2219) 28 U/L CBC W/AUTO [id number] 00:00:00 Test Item Value Reference Range Interpretation [...] NUCLEATED RBCS (test code = 0.00 K/UL 55310) CBC W/AUTO [id number] 00:00:00 Test Item Value Reference Range Interpretation [...] NUCLEATED RBCS (test code = 0.00 K/UL 00210) CBC W/AUTO [id number] 00:00:00 Test Item Value Reference Range Interpretation [...] NUCLEATED RBCS (test code = 0.00 K/UL 89315) COMPREHENSIVE METABOLIC [id number] 00:00:00 Test Item Value Reference Range Interpretation Comments GLUCOSE (test code = 2217) 108 MG/DL BUN (test code = 2208) 17 MG/DL CREATININE (test code = 2214) 0.84 MG/DL eGFR (2020 CKD-EPI) (test code 88 ML/MIN/1.73 = 74670) CALC BUN/CREAT (test code = 20 RATIO [...] code = 2219) 28 U/L COMPREHENSIVE METABOLIC [id number] 00:00:00 Test Item Value Reference Range Interpretation Comments GLUCOSE (test code = 2217) 108 MG/DL BUN (test code = 2208) 17 MG/DL CREATININE (test code = 2214) 0.84 MG/DL eGFR (2020 CKD-EPI) (test code 88 ML/MIN/1.73 = 05590) CALC BUN/CREAT (test code = 20 RATIO [...] code = 2219) 28 U/L CBC W/AUTO [id number] 00:00:00 Test Item Value Reference Range Interpretation [...] NUCLEATED RBCS (test code = 0.00 K/UL 26835) CBC W/AUTO [id number] 00:00:00 Test Item Value Reference Range Interpretation [...] NUCLEATED RBCS (test code = 0.00 K/UL 19604) COMPREHENSIVE METABOLIC [id number] 00:00:00 Test Item Value Reference Range Interpretation Comments GLUCOSE (test code = 2217) 108 MG/DL BUN (test code = 2208) 17 MG/DL CREATININE (test code = 2214) 0.84 MG/DL eGFR (2020 CKD-EPI) (test code 88 ML/MIN/1.73 = 38758) CALC BUN/CREAT (test code = 20 RATIO [...] code = 2219) 28 U/L CBC W/AUTO [id number] 00:00:00 Test Item Value Reference Range Interpretation [...] NUCLEATED RBCS (test code = 0.00 K/UL 15014) CBC W/AUTO [id number] 00:00:00 Test Item Value Reference Range Interpretation [...] NUCLEATED RBCS (test code = 0.00 K/UL 32553) CBC W/AUTO [id number] 00:00:00 Test Item Value Reference Range Interpretation [...] NUCLEATED RBCS (test code = 0.00 K/UL 18240) COMPREHENSIVE METABOLIC [id number] 00:00:00 Test Item Value Reference Range Interpretation Comments GLUCOSE (test code = 2217) 108 MG/DL BUN (test code = 2208) 17 MG/DL CREATININE (test code = 2214) 0.84 MG/DL eGFR (2020 CKD-EPI) (test code 88 ML/MIN/1.73 = 23012) CALC BUN/CREAT (test code = 20 RATIO [...] code = 2219) 28 U/L COMPREHENSIVE METABOLIC [id number] 00:00:00 Test Item Value Reference Range Interpretation Comments GLUCOSE (test code = 2217) 108 MG/DL BUN (test code = 2208) 17 MG/DL CREATININE (test code = 2214) 0.84 MG/DL eGFR (2020 CKD-EPI) (test code 88 ML/MIN/1.73 = 68911) CALC BUN/CREAT (test code = 20 RATIO [...] code = 2219) 28 U/L CBC W/AUTO [id number] 00:00:00 Test Item Value Reference Range Interpretation [...] NUCLEATED RBCS (test code = 0.00 K/UL 76630) CBC W/AUTO [id number] 00:00:00 Test Item Value Reference Range Interpretation [...] NUCLEATED RBCS (test code = 0.00 K/UL 88996) CBC W/AUTO [id number] 00:00:00 Test Item Value Reference Range Interpretation [...] NUCLEATED RBCS (test code = 0.00 K/UL 77162) COMPREHENSIVE METABOLIC [id number] 00:00:00 Test Item Value Reference Range Interpretation Comments GLUCOSE (test code = 2217) 108 MG/DL BUN (test code = 2208) 17 MG/DL CREATININE (test code = 2214) 0.84 MG/DL eGFR (2020 CKD-EPI) (test code 88 ML/MIN/1.73 = 43735) CALC BUN/CREAT (test code = 20 RATIO [...] code = 2219) 28 U/L COMPREHENSIVE METABOLIC [id number] 00:00:00 Test Item Value Reference Range Interpretation Comments GLUCOSE (test code = 2217) 108 MG/DL BUN (test code = 2208) 17 MG/DL CREATININE (test code = 2214) 0.84 MG/DL eGFR (2020 CKD-EPI) (test code 88 ML/MIN/1.73 = 02129) CALC BUN/CREAT (test code = 20 RATIO [...] code = 2219) 28 U/L CBC W/AUTO [id number] 00:00:00 Test Item Value Reference Range Interpretation [...] NUCLEATED RBCS (test code = 0.00 K/UL 92959) CBC W/AUTO [id number] 00:00:00 Test Item Value Reference Range Interpretation [...] NUCLEATED RBCS (test code = 0.00 K/UL 40039) CBC W/AUTO [id number] 00:00:00 Test Item Value Reference Range Interpretation [...] NUCLEATED RBCS (test code = 0.00 K/UL 68980) COMPREHENSIVE METABOLIC [id number] 00:00:00 Test Item Value Reference Range Interpretation Comments GLUCOSE (test code = 2217) 108 MG/DL BUN (test code = 2208) 17 MG/DL CREATININE (test code = 2214) 0.84 MG/DL eGFR (2020 CKD-EPI) (test code 88 ML/MIN/1.73 = 37657) CALC BUN/CREAT (test code = 20 RATIO [...] code = 2219) 28 U/L COMPREHENSIVE METABOLIC [id number] 00:00:00 Test Item Value Reference Range Interpretation Comments GLUCOSE (test code = 2217) 108 MG/DL BUN (test code = 2208) 17 MG/DL CREATININE (test code = 2214) 0.84 MG/DL eGFR (2020 CKD-EPI) (test code 88 ML/MIN/1.73 = 01860) CALC BUN/CREAT (test code = 20 RATIO [...] = 2219) 28 U/L COMP. METABOLIC PANEL ([id number])[id number] 15:36:43 Test Item Value Reference Range Interpretation Comments NA (test code = 133 mmol/L 135-145 L 9868410803) K (test code = 4.8 mmol/L 3.5-5.0 6484718783) CL (test code = 96 mmol/L 98-108 L 1948833542) CO2 TOTAL (test code = 21 mmol/L 23-31 L 7455525965) AGAP (test code = 2-16 3998337691) BUN (test code = 30 mg/dL 7-23 H 6629594203) GLUCOSE (test code = 405 mg/dL 70-110 H 7337558936) CREATININE (test code = 0.74 mg/dL 0.50-1.04 6703872679) TOTAL BILI (test code = 0.6 mg/dL 0.1-1.0 8845573414) CALCIUM (test code = 9.7 mg/dL 8.6-10.6 9871693255) T PROTEIN (test code = 7.9 g/dL 6.3-8.2 2451444140) ALBUMIN (test code = 4.9 g/dL 3.5-5.0 0111325396) ALK PHOS (test code = 66 U/L 34-122 4252989887) ALTv (test code = 37 U/L 5-35 H 1742-6) AST(SGOT) (test code = 31 U/L 13-40 5818949762) eGFR (test code = mL/min/1.73m2 8917629994) CALVIN (test code = CALVIN) Association of [...] tests). Lab Interpretation Abnormal (test code = 03770-8) [facility] WITH [id number] 15:26:02 Test Item Value Reference Range Interpretation Comments WBC (test code = See_Comment [Automated 7910-2) message] The sy stem which generated this result transmitted reference range : 4.30 - 11.10 10*3/?L. The reference range was not used to interpret this result as normal/abnormal . RBC (test code = See_Comment [Automated 412-8) message] The sy stem which generated this [...] (test code = 38.2 fL 39.0-49.9 L 21615-5) RDW-CV (test code = 12.9 % 12.0-15.5 788-0) PLT (test code = See_Comment [Automated 777-3) message] The sy stem which generated this result transmitted reference range : 166 - 358 10*3/ ?L. The reference r doretha was not used to interpret this result as normal/abnormal . MPV (test code = 9.8 fL 9.5-12.9 89679-3) NRBC/100 WBC (test See_Comment [Automat ed code = 0169490177) message] The system which generated this result transmitted reference range : 0.0 - 10.0 /100 WBCs. The refer ence range was not u sed to interpret th is result as normal/abnormal . NRBC x10^3 (test code <0.01 See_Comment [Auto mated = 7606318466) message] The s ystem which generated this result transmitted reference range : 10*3/?L. The reference range was not used to interpret this result as normal/abnormal . GRAN MAT (NEUT) % 50.6 % (test code = 770-8) IMM GRAN % (test code 0.80 % = 5224192994) LYMPH % (test code = 37.0 % 736-9) MONO % (test code = 8.5 % 5905-5) EOS % (test code = 2.2 % 713-8) BASO % (test code = 0.9 % 706-2) GRAN MAT x10^3(ANC) 3.86 10*3/uL 1.88-7.09 (test code = 6024330317) IMM GRAN x10^3 (test 0.06 10*3/uL 0.00-0.06 code = 2458993645) LYMPH x10^3 (test code 2.83 10*3/uL 1.32-3.29 = 731-0) MONO x10^3 (test code 0.65 10*3/uL 0.33-0.92 = 742-7) EOS x10^3 (test code = 0.17 10*3/uL 0.03-0.39 711-2) BASO x10^3 (test code 0.07 10*3/uL 0.01-0.07 = 704-7) Lab Interpretation Abnormal (test code = 58202-9) [id number] Test Item Value Reference Range Interpretation Comments POCT PREG (test code = 1605) negative On board controls acceptable with present C Line (test code = 3574) POCT PREG LOT # (test code = 3575) [id number] POCT PREG TEST DATE (test 09/07/2022 code = 3576) Lab Interpretation (test code = Normal 55905-5) [id number] Test Item Value Reference Range Interpretation Comments GLUBED (test code = GLUBED) 260 mg/dL 60-125 H [id number] 06:42:00 Test Item Value Reference Range Interpretation Comments GLUBED (test code = GLUBED) 265 mg/dL 60-125 H COVID 19 Asymptomatic IH [id number] 17:24:00 Test Item Value Reference Range Interpretation Comments COVID 19 Asymptomatic IH AG (test NEGATIVE NEGATIVE code = COVNONPUIAG) COMPREHENSIVE METABOLIC [id number] 05:38:33 Test Item Value Reference Range Interpretation Comments GLUCOSE (test code = 411 MG/DL 70-99 H 2216) BUN (test code = 24 MG/DL 6-20 H 2207) CREATININE (test 1.13 MG/DL 0.60-1.30 code = 2214) eGFR (2020 CKD-EPI) 62 ML/MIN/1.73 >60 (test code = 41713) CALC BUN/CREAT (test 21 RATIO - code = 2235) SODIUM (test code = 136 MEQ/L 553-283 6502) POTASSIUM (test code 5.0 MEQ/L 3.5-5.4 = [...] = 49 U/L 5-40 H 2218) LIPID [id number] 05:38:33 Test Item Value Reference Range Interpretation [...] MOREINFORMATION , SEE CLIENT ANNOUNCE MENT AT [email or web address] CalcLDL-C RISK RATIO LDL/HDL 2.79 RATIO <3.22 UNABLE T O CALCULATE (test code = 2238) UNLESS OT HERWISE INDICATED, ALL TESTING PERFORMED [email or web address], [facility] [address] [place] [address] 0220 4 LABORATORY DIRE CTOR: NOAH TODD M.D. CLIA NUMBER [id number] [place] [id number] HEMOGLOBIN [id number] 03:55:33 Test Item Value Reference Range Interpretation Comments HEMOGLOBIN A1c (test 11.9 % 4.2-5.6 H [employer]ES code = 80566) ASSOCIATION [employer] FOR HGB A1C: PREDIABETES/INC REASED [...] TESTING OR LABORATORY C ONSULTATION. COMPREHENSIVE METABOLIC [id number] 00:00:00 Test Item Value Reference Range Interpretation Comments GLUCOSE (test code = 7) 411 MG/DL BUN (test code = 2208) 24 MG/DL CREATININE (test code = 2214) 1.13 MG/DL eGFR (2020 CKD-EPI) (test code 62 ML/MIN/1.73 = 99411) CALC BUN/CREAT (test code = 21 RATIO [...] code = 2219) 49 U/L COMPREHENSIVE METABOLIC [id number] 00:00:00 Test Item Value Reference Range Interpretation Comments GLUCOSE (test code = 2217) 411 MG/DL BUN (test code = 2208) 24 MG/DL CREATININE (test code = 2214) 1.13 MG/DL eGFR (2020 CKD-EPI) (test code 62 ML/MIN/1.73 = 04119) CALC BUN/CREAT (test code = 21 RATIO [...] (test code = 2219) 49 U/L HEMOGLOBIN [id number] 00:00:00 Test Item Value Reference Range Interpretation Comments HEMOGLOBIN A1c (test code = 61985) 11.9 % HEMOGLOBIN [id number] 00:00:00 Test Item Value Reference Range Interpretation Comments HEMOGLOBIN A1c (test code = 93396) 11.9 % HEMOGLOBIN [id number] 00:00:00 Test Item Value Reference Range Interpretation Comments HEMOGLOBIN A1c (test code = 32116) 11.9 % LIPID [id number] 00:00:00 Test Item Value Reference Range Interpretation Comments CHOLESTEROL (test code = 2210) 176 MG/DL TRIGLYCERIDES (test code = 2232) 614 MG/DL HDL CHOLESTEROL (test code = 28 MG/DL 0) CALC LDL CHOL (test code = 2237) (NOTE) MG/DL RISK RATIO LDL/HDL (test code = 2.79 RATIO 2238) LIPID [id number] 00:00:00 Test Item Value Reference Range Interpretation Comments CHOLESTEROL (test code = 2210) 176 MG/DL TRIGLYCERIDES (test code = 2232) 614 MG/DL HDL CHOLESTEROL (test code = 28 MG/DL 0) CALC LDL CHOL (test code = 2237) (NOTE) MG/DL RISK RATIO LDL/HDL (test code = 2.79 RATIO 2238) COMPREHENSIVE METABOLIC [id number] 00:00:00 Test Item Value Reference Range Interpretation Comments GLUCOSE (test code = 2217) 411 MG/DL BUN (test code = 2208) 24 MG/DL CREATININE (test code = 2214) 1.13 MG/DL eGFR (2020 CKD-EPI) (test code 62 ML/MIN/1.73 = 91409) CALC BUN/CREAT (test code = 21 RATIO [...] code = 2219) 49 U/L COMPREHENSIVE METABOLIC [id number] 00:00:00 Test Item Value Reference Range Interpretation Comments GLUCOSE (test code = 2217) 411 MG/DL BUN (test code = 2208) 24 MG/DL CREATININE (test code = 2214) 1.13 MG/DL eGFR (2020 CKD-EPI) (test code 62 ML/MIN/1.73 = 79390) CALC BUN/CREAT (test code = 21 RATIO [...] (test code = 2219) 49 U/L HEMOGLOBIN [id number] 00:00:00 Test Item Value Reference Range Interpretation Comments HEMOGLOBIN A1c (test code = 57294) 11.9 % HEMOGLOBIN [id number] 00:00:00 Test Item Value Reference Range Interpretation Comments HEMOGLOBIN A1c (test code = 27592) 11.9 % HEMOGLOBIN [id number] 00:00:00 Test Item Value Reference Range Interpretation Comments HEMOGLOBIN A1c (test code = 07094) 11.9 % LIPID [id number] 00:00:00 Test Item Value Reference Range Interpretation Comments CHOLESTEROL (test code = 2210) 176 MG/DL TRIGLYCERIDES (test code = 2232) 614 MG/DL HDL CHOLESTEROL (test code = 28 MG/DL 2220) CALC LDL CHOL (test code = 2237) (NOTE) MG/DL RISK RATIO LDL/HDL (test code = 2.79 RATIO 2238) LIPID [id number] 00:00:00 Test Item Value Reference Range Interpretation Comments CHOLESTEROL (test code = 2210) 176 MG/DL TRIGLYCERIDES (test code = 2232) 614 MG/DL HDL CHOLESTEROL (test code = 28 MG/DL 2220) CALC LDL CHOL (test code = 2237) (NOTE) MG/DL RISK RATIO LDL/HDL (test code = 2.79 RATIO 2238) COMPREHENSIVE METABOLIC [id number] 00:00:00 Test Item Value Reference Range Interpretation Comments GLUCOSE (test code = 2217) 411 MG/DL BUN (test code = 2208) 24 MG/DL CREATININE (test code = 2214) 1.13 MG/DL eGFR (2020 CKD-EPI) (test code 62 ML/MIN/1.73 = 81688) CALC BUN/CREAT (test code = 21 RATIO [...] code = 2219) 49 U/L COMPREHENSIVE METABOLIC [id number] 00:00:00 Test Item Value Reference Range Interpretation Comments GLUCOSE (test code = 2217) 411 MG/DL BUN (test code = 2208) 24 MG/DL CREATININE (test code = 2214) 1.13 MG/DL eGFR (2020 CKD-EPI) (test code 62 ML/MIN/1.73 = 52680) CALC BUN/CREAT (test code = 21 RATIO [...] (test code = 2219) 49 U/L HEMOGLOBIN [id number] 00:00:00 Test Item Value Reference Range Interpretation Comments HEMOGLOBIN A1c (test code = 01964) 11.9 % HEMOGLOBIN [id number] 00:00:00 Test Item Value Reference Range Interpretation Comments HEMOGLOBIN A1c (test code = 15722) 11.9 % HEMOGLOBIN [id number] 00:00:00 Test Item Value Reference Range Interpretation Comments HEMOGLOBIN A1c (test code = 15416) 11.9 % LIPID [id number] 00:00:00 Test Item Value Reference Range Interpretation Comments CHOLESTEROL (test code = 2210) 176 MG/DL TRIGLYCERIDES (test code = 2232) 614 MG/DL HDL CHOLESTEROL (test code = 28 MG/DL 2219) CALC LDL CHOL (test code = 2237) (NOTE) MG/DL RISK RATIO LDL/HDL (test code = 2.79 RATIO 2238) LIPID [id number] 00:00:00 Test Item Value Reference Range Interpretation Comments CHOLESTEROL (test code = 2210) 176 MG/DL TRIGLYCERIDES (test code = 2232) 614 MG/DL HDL CHOLESTEROL (test code = 28 MG/DL 2220) CALC LDL CHOL (test code = 2237) (NOTE) MG/DL RISK RATIO LDL/HDL (test code = 2.79 RATIO 2238) COMPREHENSIVE METABOLIC [id number] 00:00:00 Test Item Value Reference Range Interpretation Comments GLUCOSE (test code = 2217) 411 MG/DL BUN (test code = 2208) 24 MG/DL CREATININE (test code = 2214) 1.13 MG/DL eGFR (2020 CKD-EPI) (test code 62 ML/MIN/1.73 = 86473) CALC BUN/CREAT (test code = 21 RATIO [...] code = 2219) 49 U/L COMPREHENSIVE METABOLIC [id number] 00:00:00 Test Item Value Reference Range Interpretation Comments GLUCOSE (test code = 2217) 411 MG/DL BUN (test code = 2208) 24 MG/DL CREATININE (test code = 2214) 1.13 MG/DL eGFR (2020 CKD-EPI) (test code 62 ML/MIN/1.73 = 99164) CALC BUN/CREAT (test code = 21 RATIO [...] (test code = 2219) 49 U/L HEMOGLOBIN [id number] 00:00:00 Test Item Value Reference Range Interpretation Comments HEMOGLOBIN A1c (test code = 44651) 11.9 % HEMOGLOBIN [id number] 00:00:00 Test Item Value Reference Range Interpretation Comments HEMOGLOBIN A1c (test code = 11428) 11.9 % HEMOGLOBIN [id number] 00:00:00 Test Item Value Reference Range Interpretation Comments HEMOGLOBIN A1c (test code = 72314) 11.9 % LIPID [id number] 00:00:00 Test Item Value Reference Range Interpretation Comments CHOLESTEROL (test code = 2210) 176 MG/DL TRIGLYCERIDES (test code = 2232) 614 MG/DL HDL CHOLESTEROL (test code = 28 MG/DL 0) CALC LDL CHOL (test code = 2237) (NOTE) MG/DL RISK RATIO LDL/HDL (test code = 2.79 RATIO 2238) LIPID [id number] 00:00:00 Test Item Value Reference Range Interpretation Comments CHOLESTEROL (test code = 2210) 176 MG/DL TRIGLYCERIDES (test code = 2232) 614 MG/DL HDL CHOLESTEROL (test code = 28 MG/DL 2220) CALC LDL CHOL (test code = 2237) (NOTE) MG/DL RISK RATIO LDL/HDL (test code = 2.79 RATIO 2238) COMPREHENSIVE METABOLIC [id number] 00:00:00 Test Item Value Reference Range Interpretation Comments GLUCOSE (test code = 2217) 411 MG/DL BUN (test code = 8) 24 MG/DL CREATININE (test code = 2214) 1.13 MG/DL eGFR (2020 CKD-EPI) (test code 62 ML/MIN/1.73 = 06405) CALC BUN/CREAT (test code = 21 RATIO [...] code = 2219) 49 U/L COMPREHENSIVE METABOLIC [id number] 00:00:00 Test Item Value Reference Range Interpretation Comments GLUCOSE (test code = 2217) 411 MG/DL BUN (test code = 2208) 24 MG/DL CREATININE (test code = 2214) 1.13 MG/DL eGFR (2020 CKD-EPI) (test code 62 ML/MIN/1.73 = 48321) CALC BUN/CREAT (test code = 21 RATIO [...] (test code = 2219) 49 U/L HEMOGLOBIN [id number] 00:00:00 Test Item Value Reference Range Interpretation Comments HEMOGLOBIN A1c (test code = 85338) 11.9 % HEMOGLOBIN [id number] 00:00:00 Test Item Value Reference Range Interpretation Comments HEMOGLOBIN A1c (test code = 77608) 11.9 % HEMOGLOBIN [id number] 00:00:00 Test Item Value Reference Range Interpretation Comments HEMOGLOBIN A1c (test code = 48617) 11.9 % LIPID [id number] 00:00:00 Test Item Value Reference Range Interpretation Comments CHOLESTEROL (test code = 2210) 176 MG/DL TRIGLYCERIDES (test code = 2232) 614 MG/DL HDL CHOLESTEROL (test code = 28 MG/DL 2220) CALC LDL CHOL (test code = 2237) (NOTE) MG/DL RISK RATIO LDL/HDL (test code = 2.79 RATIO 2238) LIPID [id number] 00:00:00 Test Item Value Reference Range Interpretation Comments CHOLESTEROL (test code = 2210) 176 MG/DL TRIGLYCERIDES (test code = 2232) 614 MG/DL HDL CHOLESTEROL (test code = 28 MG/DL 2220) CALC LDL CHOL (test code = 2237) (NOTE) MG/DL RISK RATIO LDL/HDL (test code = 2.79 RATIO 2238) COMPREHENSIVE METABOLIC [id number] 00:00:00 Test Item Value Reference Range Interpretation Comments GLUCOSE (test code = 2217) 411 MG/DL BUN (test code = 2208) 24 MG/DL CREATININE (test code = 2214) 1.13 MG/DL eGFR (2020 CKD-EPI) (test code 62 ML/MIN/1.73 = 88894) CALC BUN/CREAT (test code = 21 RATIO [...] code = 2219) 49 U/L COMPREHENSIVE METABOLIC [id number] 00:00:00 Test Item Value Reference Range Interpretation Comments GLUCOSE (test code = 2217) 411 MG/DL BUN (test code = 2208) 24 MG/DL CREATININE (test code = 2214) 1.13 MG/DL eGFR (2020 CKD-EPI) (test code 62 ML/MIN/1.73 = 60836) CALC BUN/CREAT (test code = 21 RATIO [...] (test code = 2219) 49 U/L HEMOGLOBIN [id number] 00:00:00 Test Item Value Reference Range Interpretation Comments HEMOGLOBIN A1c (test code = 28899) 11.9 % HEMOGLOBIN [id number] 00:00:00 Test Item Value Reference Range Interpretation Comments HEMOGLOBIN A1c (test code = 73339) 11.9 % HEMOGLOBIN [id number] 00:00:00 Test Item Value Reference Range Interpretation Comments HEMOGLOBIN A1c (test code = 00881) 11.9 % LIPID [id number] 00:00:00 Test Item Value Reference Range Interpretation Comments CHOLESTEROL (test code = 2210) 176 MG/DL TRIGLYCERIDES (test code = 2232) 614 MG/DL HDL CHOLESTEROL (test code = 28 MG/DL 2219) CALC LDL CHOL (test code = 2237) (NOTE) MG/DL RISK RATIO LDL/HDL (test code = 2.79 RATIO 2238) LIPID [id number] 00:00:00 Test Item Value Reference Range Interpretation Comments CHOLESTEROL (test code = 2210) 176 MG/DL TRIGLYCERIDES (test code = 2232) 614 MG/DL HDL CHOLESTEROL (test code = 28 MG/DL 2220) CALC LDL CHOL (test code = 2237) (NOTE) MG/DL RISK RATIO LDL/HDL (test code = 2.79 RATIO 2238) COMPREHENSIVE METABOLIC [id number] 00:00:00 Test Item Value Reference Range Interpretation Comments GLUCOSE (test code = 2217) 411 MG/DL BUN (test code = 2208) 24 MG/DL CREATININE (test code = 2214) 1.13 MG/DL eGFR (2020 CKD-EPI) (test code 62 ML/MIN/1.73 = 02436) CALC BUN/CREAT (test code = 21 RATIO [...] code = 2219) 49 U/L COMPREHENSIVE METABOLIC [id number] 00:00:00 Test Item Value Reference Range Interpretation Comments GLUCOSE (test code = 2217) 411 MG/DL BUN (test code = 2208) 24 MG/DL CREATININE (test code = 2214) 1.13 MG/DL eGFR (2020 CKD-EPI) (test code 62 ML/MIN/1.73 = 34289) CALC BUN/CREAT (test code = 21 RATIO [...] (test code = 2219) 49 U/L HEMOGLOBIN [id number] 00:00:00 Test Item Value Reference Range Interpretation Comments HEMOGLOBIN A1c (test code = 34111) 11.9 % HEMOGLOBIN [id number] 00:00:00 Test Item Value Reference Range Interpretation Comments HEMOGLOBIN A1c (test code = 78461) 11.9 % HEMOGLOBIN [id number] 00:00:00 Test Item Value Reference Range Interpretation Comments HEMOGLOBIN A1c (test code = 61472) 11.9 % LIPID [id number] 00:00:00 Test Item Value Reference Range Interpretation Comments CHOLESTEROL (test code = 2210) 176 MG/DL TRIGLYCERIDES (test code = 2232) 614 MG/DL HDL CHOLESTEROL (test code = 28 MG/DL 2220) CALC LDL CHOL (test code = 2237) (NOTE) MG/DL RISK RATIO LDL/HDL (test code = 2.79 RATIO 2238) LIPID [id number] 00:00:00 Test Item Value Reference Range Interpretation Comments CHOLESTEROL (test code = 2210) 176 MG/DL TRIGLYCERIDES (test code = 2232) 614 MG/DL HDL CHOLESTEROL (test code = 28 MG/DL 2220) CALC LDL CHOL (test code = 2237) (NOTE) MG/DL RISK RATIO LDL/HDL (test code = 2.79 RATIO 2238) COMPREHENSIVE METABOLIC [id number] 00:00:00 Test Item Value Reference Range Interpretation Comments GLUCOSE (test code = 2217) 411 MG/DL BUN (test code = 2208) 24 MG/DL CREATININE (test code = 2214) 1.13 MG/DL eGFR (2020 CKD-EPI) (test code 62 ML/MIN/1.73 = 81568) CALC BUN/CREAT (test code = 21 RATIO [...] (test code = 2219) 49 U/L HEMOGLOBIN [id number] 00:00:00 Test Item Value Reference Range Interpretation Comments HEMOGLOBIN A1c (test code = 31524) 11.9 % HEMOGLOBIN [id number] 00:00:00 Test Item Value Reference Range Interpretation Comments HEMOGLOBIN A1c (test code = 93445) 11.9 % LIPID [id number] 00:00:00 Test Item Value Reference Range Interpretation Comments CHOLESTEROL (test code = 2210) 176 MG/DL TRIGLYCERIDES (test code = 2232) 614 MG/DL HDL CHOLESTEROL (test code = 28 MG/DL 2219) CALC LDL CHOL (test code = 2237) (NOTE) MG/DL RISK RATIO LDL/HDL (test code = 2.79 RATIO 8) COMPREHENSIVE METABOLIC [id number] 00:00:00 Test Item Value Reference Range Interpretation Comments GLUCOSE (test code = 2217) 411 MG/DL BUN (test code = 2208) 24 MG/DL CREATININE (test code = 2214) 1.13 MG/DL eGFR (2020 CKD-EPI) (test code 62 ML/MIN/1.73 = 43446) CALC BUN/CREAT (test code = 21 RATIO [...] code = 2219) 49 U/L COMPREHENSIVE METABOLIC [id number] 00:00:00 Test Item Value Reference Range Interpretation Comments GLUCOSE (test code = 2216) 411 MG/DL BUN (test code = 8) 24 MG/DL CREATININE (test code = 2214) 1.13 MG/DL eGFR (2020 CKD-EPI) (test code 62 ML/MIN/1.73 = 04615) CALC BUN/CREAT (test code = 21 RATIO [...] (test code = 2219) 49 U/L HEMOGLOBIN [id number] 00:00:00 Test Item Value Reference Range Interpretation Comments HEMOGLOBIN A1c (test code = 86710) 11.9 % HEMOGLOBIN [id number] 00:00:00 Test Item Value Reference Range Interpretation Comments HEMOGLOBIN A1c (test code = 87164) 11.9 % HEMOGLOBIN [id number] 00:00:00 Test Item Value Reference Range Interpretation Comments HEMOGLOBIN A1c (test code = 83258) 11.9 % LIPID [id number] 00:00:00 Test Item Value Reference Range Interpretation Comments CHOLESTEROL (test code = 2210) 176 MG/DL TRIGLYCERIDES (test code = 2232) 614 MG/DL HDL CHOLESTEROL (test code = 28 MG/DL 2220) CALC LDL CHOL (test code = 2237) (NOTE) MG/DL RISK RATIO LDL/HDL (test code = 2.79 RATIO 2238) LIPID [id number] 00:00:00 Test Item Value Reference Range Interpretation Comments CHOLESTEROL (test code = 2210) 176 MG/DL TRIGLYCERIDES (test code = 2232) 614 MG/DL HDL CHOLESTEROL (test code = 28 MG/DL 2220) CALC LDL CHOL (test code = 2237) (NOTE) MG/DL RISK RATIO LDL/HDL (test code = 2.79 RATIO 2238) COMPREHENSIVE METABOLIC [id number] 00:00:00 Test Item Value Reference Range Interpretation Comments GLUCOSE (test code = 2217) 411 MG/DL BUN (test code = 2208) 24 MG/DL CREATININE (test code = 2214) 1.13 MG/DL eGFR (2020 CKD-EPI) (test code 62 ML/MIN/1.73 = 38032) CALC BUN/CREAT (test code = 21 RATIO [...] code = 2219) 49 U/L COMPREHENSIVE METABOLIC [id number] 00:00:00 Test Item Value Reference Range Interpretation Comments GLUCOSE (test code = 2217) 411 MG/DL BUN (test code = 2208) 24 MG/DL CREATININE (test code = 2214) 1.13 MG/DL eGFR (2020 CKD-EPI) (test code 62 ML/MIN/1.73 = 78585) CALC BUN/CREAT (test code = 21 RATIO [...] (test code = 2219) 49 U/L HEMOGLOBIN [id number] 00:00:00 Test Item Value Reference Range Interpretation Comments HEMOGLOBIN A1c (test code = 50490) 11.9 % HEMOGLOBIN [id number] 00:00:00 Test Item Value Reference Range Interpretation Comments HEMOGLOBIN A1c (test code = 14815) 11.9 % HEMOGLOBIN [id number] 00:00:00 Test Item Value Reference Range Interpretation Comments HEMOGLOBIN A1c (test code = 69168) 11.9 % LIPID [id number] 00:00:00 Test Item Value Reference Range Interpretation Comments CHOLESTEROL (test code = 2210) 176 MG/DL TRIGLYCERIDES (test code = 2232) 614 MG/DL HDL CHOLESTEROL (test code = 28 MG/DL 2219) CALC LDL CHOL (test code = 2237) (NOTE) MG/DL RISK RATIO LDL/HDL (test code = 2.79 RATIO 8) LIPID [id number] 00:00:00 Test Item Value Reference Range Interpretation Comments CHOLESTEROL (test code = 2210) 176 MG/DL TRIGLYCERIDES (test code = 2232) 614 MG/DL HDL CHOLESTEROL (test code = 28 MG/DL 2219) CALC LDL CHOL (test code = 2237) (NOTE) MG/DL RISK RATIO LDL/HDL (test code = 2.79 RATIO 2238) COMPREHENSIVE METABOLIC [id number] 00:00:00 Test Item Value Reference Range Interpretation Comments GLUCOSE (test code = 2217) 411 MG/DL BUN (test code = 2208) 24 MG/DL CREATININE (test code = 2214) 1.13 MG/DL eGFR (2020 CKD-EPI) (test code 62 ML/MIN/1.73 = 90670) CALC BUN/CREAT (test code = 21 RATIO [...] code = 2219) 49 U/L COMPREHENSIVE METABOLIC [id number] 00:00:00 Test Item Value Reference Range Interpretation Comments GLUCOSE (test code = 2217) 411 MG/DL BUN (test code = 2208) 24 MG/DL CREATININE (test code = 2214) 1.13 MG/DL eGFR (2020 CKD-EPI) (test code 62 ML/MIN/1.73 = 22842) CALC BUN/CREAT (test code = 21 RATIO [...] = 0.3 MG/DL 7) ALKALINE PHOSPHATASE (test 61 U/L code = 2204) AST (test code = 2218) 38 U/L ALT (test code = 2219) 49 U/L HEMOGLOBIN [id number] 00:00:00 Test Item Value Reference Range Interpretation Comments HEMOGLOBIN A1c (test code = 11595) 11.9 % HEMOGLOBIN [id number] 00:00:00 Test Item Value Reference Range Interpretation Comments HEMOGLOBIN A1c (test code = 24093) 11.9 % HEMOGLOBIN [id number] 00:00:00 Test Item Value Reference Range Interpretation Comments HEMOGLOBIN A1c (test code = 03582) 11.9 % LIPID [id number] 00:00:00 Test Item Value Reference Range Interpretation Comments CHOLESTEROL (test code = 2210) 176 MG/DL TRIGLYCERIDES (test code = 2232) 614 MG/DL HDL CHOLESTEROL (test code = 28 MG/DL 2220) CALC LDL CHOL (test code = 2237) (NOTE) MG/DL RISK RATIO LDL/HDL (test code = 2.79 RATIO 2238) LIPID [id number] 00:00:00 Test Item Value Reference Range Interpretation Comments CHOLESTEROL (test code = 2210) 176 MG/DL TRIGLYCERIDES (test code = 2232) 614 MG/DL HDL CHOLESTEROL (test code = 28 MG/DL 2220) CALC LDL CHOL (test code = 2237) (NOTE) MG/DL RISK RATIO LDL/HDL (test code = 2.79 RATIO 2238) CREATINE [id number] 13:35:13 Test Item Value Reference Range Interpretation Comments CK (test code = 0499180584) 71 U/L 33-194 Lab Interpretation (test code = Normal 87513-9) [facility] GLUCOSE (AUTOMATED)2021-06-18 13:07:35 Test Item Value Reference Range Interpretation Comments POCT GLU (test code = 7191332659) 351 mg/dL 70-110 H Lab Interpretation (test code = Abnormal 54754-5) [facility] GLUCOSE(AGE >30DAYS)2021-06-18 13:04:00 Test Item Value Reference Range Interpretation Comments POCT Glu (age>30days) (test code = 351 mg/dL 70-110 A 3342) Lab Interpretation (test code = Abnormal 42616-4) [facility]. Metabolic Panel (79351)2021-06-18 11:14:20 Test Item Value Reference Range Interpretation Comments NA (test code = 134 mmol/L 135-145 L 3595498826) K (test code = 4.6 mmol/L 3.5-5.0 4875105545) CL (test code = 103 mmol/L 98-108 1594234183) CO2 TOTAL (test code = 18 mmol/L 23-31 L 1553316234) AGAP (test code = 2-16 2277407154) BUN (test code = 30 mg/dL 7-23 H 8939948367) GLUCOSE (test code = 390 mg/dL 70-110 H 1842597027) CREATININE (test code = 0.93 mg/dL 0.50-1.04 7073711039) TOTAL BILI (test code = 0.4 mg/dL 0.1-1.1 0877484064) CALCIUM (test code = 10.0 mg/dL 8.6-10.6 5088274558) T PROTEIN (test code = 7.6 g/dL 6.3-8.2 1441359397) ALBUMIN (test code = 4.5 g/dL 3.5-5.0 2194195318) ALK PHOS (test code = 51 U/L 34-122 1774862526) ALTv (test code = 34 U/L 5-35 1742-6) AST(SGOT) (test code = 26 U/L 13-40 2568877158) eGFR (test code = mL/min/1.73m2 0646238184) CALVIN (test code = CALVIN) Association of [...] tests). Lab Interpretation Abnormal (test code = 69396-7) [id number]:06[facility] Test Item Value Reference Range Interpretation Comments POCT PREG (test code = 1605) neg On board controls acceptable with yes C Line (test code = 3574) POCT PREG LOT # (test code = 3575) [id number] POCT PREG TEST DATE (test 08/10/2022 code = 3576) Lab Interpretation (test code = Normal 35583-9) [facility] with [id number] 11:00:39 Test Item Value Reference Range Interpretation Comments WBC (test code = See_Comment [Automated 5499-2) message] The sy stem which generated this result transmitted reference range : 4.30 - 11.10 10*3/?L. The reference range was not used to interpret this result as normal/abnormal . RBC (test code = See_Comment [Automated 509-7) message] The sy stem which generated this [...] RDW-SD (test code = 40.1 fL 39.0-49.9 31186-9) RDW-CV (test code = 13.2 % 12.0-15.5 788-0) PLT (test code = See_Comment [Automated 777-3) message] The sy stem which generated this result transmitted reference range : 166 - 358 10*3/ ?L. The reference r doretha was not used to interpret this result as normal/abnormal . MPV (test code = 9.5 fL 9.5-12.9 87529-6) NRBC/100 WBC (test See_Comment [Automat ed code = 9657217327) message] The system which generated this result transmitted reference range : 0.0 - 10.0 /100 WBCs. The refer ence range was not u sed to interpret th is result as normal/abnormal . NRBC x10^3 (test code <0.01 See_Comment [Auto mated = [id number]) message] The s ystem which generated this result transmitted reference range : 10*3/?L. The reference range was not used to interpret this result as normal/abnormal . GRAN MAT (NEUT) % 43.7 % (test code = 770-8) IMM GRAN % (test code 0.70 % = 8610056357) LYMPH % (test code = 41.9 % 736-9) MONO % (test code = 8.8 % 5905-5) EOS % (test code = 3.6 % 713-8) BASO % (test code = 1.3 % 706-2) GRAN MAT x10^3(ANC) 2.68 10*3/uL 1.88-7.09 (test code = 9875946111) IMM GRAN x10^3 (test 0.04 10*3/uL 0.00-0.06 code = 4947353795) LYMPH x10^3 (test code 2.57 10*3/uL 1.32-3.29 = 731-0) MONO x10^3 (test code 0.54 10*3/uL 0.33-0.92 = 742-7) EOS x10^3 (test code = 0.22 10*3/uL 0.03-0.39 711-2) BASO x10^3 (test code 0.08 10*3/uL 0.01-0.07 H = 704-7) Lab Interpretation Abnormal (test code = 51375-8) [facility] [id number] 00:00:00 Test Item Value Reference Range Interpretation Comments ANDIE SPECIES (test code = 68527) NEGATIVE G. VAGINALIS (test code = 94009) NEGATIVE T. VAGINALIS (test code = 01687) NEGATIVE VAGINAL PATHOGENS DNA [id number] 00:00:00 Test Item Value Reference Range Interpretation Comments ANDIE SPECIES (test code = 89219) NEGATIVE G. VAGINALIS (test code = 01854) NEGATIVE T. VAGINALIS (test code = 62875) NEGATIVE VAGINAL PATHOGENS DNA [id number] 00:00:00 Test Item Value Reference Range Interpretation Comments ANDIE SPECIES (test code = 91834) NEGATIVE G. VAGINALIS (test code = 33683) NEGATIVE T. VAGINALIS (test code = 05423) NEGATIVE VAGINAL PATHOGENS DNA [id number] 00:00:00 Test Item Value Reference Range Interpretation Comments ANDIE SPECIES (test code = 02472) NEGATIVE G. VAGINALIS (test code = 72439) NEGATIVE T. VAGINALIS (test code = 78102) NEGATIVE VAGINAL PATHOGENS DNA [id number] 00:00:00 Test Item Value Reference Range Interpretation Comments ANDIE SPECIES (test code = 85072) NEGATIVE G. VAGINALIS (test code = 46231) NEGATIVE T. VAGINALIS (test code = 21830) NEGATIVE VAGINAL PATHOGENS DNA [id number] 00:00:00 Test Item Value Reference Range Interpretation Comments ANDIE SPECIES (test code = 25206) NEGATIVE G. VAGINALIS (test code = 43270) NEGATIVE T. VAGINALIS (test code = 26039) NEGATIVE VAGINAL PATHOGENS DNA [id number] 00:00:00 Test Item Value Reference Range Interpretation Comments ANDIE SPECIES (test code = 50743) NEGATIVE G. VAGINALIS (test code = 01677) NEGATIVE T. VAGINALIS (test code = 86414) NEGATIVE VAGINAL PATHOGENS DNA [id number] 00:00:00 Test Item Value Reference Range Interpretation Comments ANDIE SPECIES (test code = 67212) NEGATIVE G. VAGINALIS (test code = 34542) NEGATIVE T. VAGINALIS (test code = 09777) NEGATIVE VAGINAL PATHOGENS DNA [id number] 00:00:00 Test Item Value Reference Range Interpretation Comments ANDIE SPECIES (test code = 58755) NEGATIVE G. VAGINALIS (test code = 69269) NEGATIVE T. VAGINALIS (test code = 97885) NEGATIVE VAGINAL PATHOGENS DNA [id number] 00:00:00 Test Item Value Reference Range Interpretation Comments ANDIE SPECIES (test code = 16743) NEGATIVE G. VAGINALIS (test code = 30140) NEGATIVE T. VAGINALIS (test code = 89415) NEGATIVE VAGINAL PATHOGENS DNA [id number] 00:00:00 Test Item Value Reference Range Interpretation Comments ANDIE SPECIES (test code = 57810) NEGATIVE G. VAGINALIS (test code = 43775) NEGATIVE T. VAGINALIS (test code = 11269) NEGATIVE VAGINAL PATHOGENS DNA [id number] 00:00:00 Test Item Value Reference Range Interpretation Comments ANDIE SPECIES (test code = 26111) NEGATIVE G. VAGINALIS (test code = 80418) NEGATIVE T. VAGINALIS (test code = 82358) NEGATIVE VAGINAL PATHOGENS DNA [id number] 00:00:00 Test Item Value Reference Range Interpretation Comments ANDIE SPECIES (test code = 45001) NEGATIVE G. VAGINALIS (test code = 75509) NEGATIVE T. VAGINALIS (test code = 48310) NEGATIVE VAGINAL PATHOGENS DNA [id number] 00:00:00 Test Item Value Reference Range Interpretation Comments ANDIE SPECIES (test code = 54225) NEGATIVE G. VAGINALIS (test code = 97767) NEGATIVE T. VAGINALIS (test code = 51655) NEGATIVE VAGINAL PATHOGENS DNA [id number] 00:00:00 Test Item Value Reference Range Interpretation Comments ANDIE SPECIES (test code = 00344) NEGATIVE G. VAGINALIS (test code = 16952) NEGATIVE T. VAGINALIS (test code = 98144) NEGATIVE VAGINAL PATHOGENS DNA [id number] 00:00:00 Test Item Value Reference Range Interpretation Comments ANDIE SPECIES (test code = 99773) NEGATIVE G. VAGINALIS (test code = 26421) NEGATIVE T. VAGINALIS (test code = 11954) NEGATIVE VAGINAL PATHOGENS DNA [id number] 00:00:00 Test Item Value Reference Range Interpretation Comments ANDIE SPECIES (test code = 40318) NEGATIVE G. VAGINALIS (test code = 45133) NEGATIVE T. VAGINALIS (test code = 29856) NEGATIVE VAGINAL PATHOGENS DNA [id number] 00:00:00 Test Item Value Reference Range Interpretation Comments ANDIE SPECIES (test code = 54312) NEGATIVE G. VAGINALIS (test code = 99972) NEGATIVE T. VAGINALIS (test code = 15743) NEGATIVE VAGINAL PATHOGENS DNA [id number] 00:00:00 Test Item Value Reference Range Interpretation Comments ANDIE SPECIES (test code = 65836) NEGATIVE G. VAGINALIS (test code = 47968) NEGATIVE T. VAGINALIS (test code = 67209) NEGATIVE VAGINAL PATHOGENS DNA [id number] 00:00:00 Test Item Value Reference Range Interpretation Comments ANDEI SPECIES (test code = 86690) NEGATIVE G. VAGINALIS (test code = 80423) NEGATIVE T. VAGINALIS (test code = 82109) NEGATIVE VAGINAL PATHOGENS DNA [id number] 00:00:00 Test Item Value Reference Range Interpretation Comments ANDIE SPECIES (test code = 43211) NEGATIVE G. VAGINALIS (test code = 12178) NEGATIVE T. VAGINALIS (test code = 60708) NEGATIVE SARS-CoV-2 (COVID-19) by RT-PCR (HIGH RISK)2021-02-26 00:00:00 Test Item Value Reference Range Interpretation Comments SARS-CoV-2 INTERPRETATION (test NEGATIVE code = 96860) SOURCE (test code = 37116) NOT SPECIFIED SARS-CoV-2 (COVID-19) by RT-PCR (HIGH RISK)2021-02-26 00:00:00 Test Item Value Reference Range Interpretation Comments SARS-CoV-2 INTERPRETATION (test NEGATIVE code = 28589) SOURCE (test code = 27712) NOT SPECIFIED SARS-CoV-2 (COVID-19) by RT-PCR (HIGH RISK)2021-02-26 00:00:00 Test Item Value Reference Range Interpretation Comments SARS-CoV-2 INTERPRETATION (test NEGATIVE code = 75687) SOURCE (test code = 02010) NOT SPECIFIED SARS-CoV-2 (COVID-19) by RT-PCR (HIGH RISK)2021-02-26 00:00:00 Test Item Value Reference Range Interpretation Comments SARS-CoV-2 INTERPRETATION (test NEGATIVE code = 07745) SOURCE (test code = 30281) NOT SPECIFIED SARS-CoV-2 (COVID-19) by RT-PCR (HIGH RISK)2021-02-26 00:00:00 Test Item Value Reference Range Interpretation Comments SARS-CoV-2 INTERPRETATION (test NEGATIVE code = 64931) SOURCE (test code = 76007) NOT SPECIFIED SARS-CoV-2 (COVID-19) by RT-PCR (HIGH RISK)2021-02-26 00:00:00 Test Item Value Reference Range Interpretation Comments SARS-CoV-2 INTERPRETATION (test NEGATIVE code = 61359) SOURCE (test code = 05110) NOT SPECIFIED SARS-CoV-2 (COVID-19) by RT-PCR (HIGH RISK)2021-02-26 00:00:00 Test Item Value Reference Range Interpretation Comments SARS-CoV-2 INTERPRETATION (test NEGATIVE code = 74085) SOURCE (test code = 07046) NOT SPECIFIED SARS-CoV-2 (COVID-19) by RT-PCR (HIGH RISK)2021-02-26 00:00:00 Test Item Value Reference Range Interpretation Comments SARS-CoV-2 INTERPRETATION (test NEGATIVE code = 17508) SOURCE (test code = 44122) NOT SPECIFIED SARS-CoV-2 (COVID-19) by RT-PCR (HIGH RISK)2021-02-26 00:00:00 Test Item Value Reference Range Interpretation Comments SARS-CoV-2 INTERPRETATION (test NEGATIVE code = 33214) SOURCE (test code = 00921) NOT SPECIFIED SARS-CoV-2 (COVID-19) by RT-PCR (HIGH RISK)2021-02-26 00:00:00 Test Item Value Reference Range Interpretation Comments SARS-CoV-2 INTERPRETATION (test NEGATIVE code = 57901) SOURCE (test code = 95415) NOT SPECIFIED SARS-CoV-2 (COVID-19) by RT-PCR (HIGH RISK)2021-02-26 00:00:00 Test Item Value Reference Range Interpretation Comments SARS-CoV-2 INTERPRETATION (test NEGATIVE code = 47634) SOURCE (test code = 61061) NOT SPECIFIED SARS-CoV-2 (COVID-19) by RT-PCR (HIGH RISK)2021-02-26 00:00:00 Test Item Value Reference Range Interpretation Comments SARS-CoV-2 INTERPRETATION (test NEGATIVE code = 09052) SOURCE (test code = 67943) NOT SPECIFIED SARS-CoV-2 (COVID-19) by RT-PCR (HIGH RISK)2021-02-26 00:00:00 Test Item Value Reference Range Interpretation Comments SARS-CoV-2 INTERPRETATION (test NEGATIVE code = 28942) SOURCE (test code = 61957) NOT SPECIFIED SARS-CoV-2 (COVID-19) by RT-PCR (HIGH RISK)2021-02-26 00:00:00 Test Item Value Reference Range Interpretation Comments SARS-CoV-2 INTERPRETATION (test NEGATIVE code = 25559) SOURCE (test code = 69842) NOT SPECIFIED SARS-CoV-2 (COVID-19) by RT-PCR (HIGH RISK)2021-02-26 00:00:00 Test Item Value Reference Range Interpretation Comments SARS-CoV-2 INTERPRETATION (test NEGATIVE code = 88506) SOURCE (test code = 30823) NOT SPECIFIED SARS-CoV-2 (COVID-19) by RT-PCR (HIGH RISK)2021-02-26 00:00:00 Test Item Value Reference Range Interpretation Comments SARS-CoV-2 INTERPRETATION (test NEGATIVE code = 26515) SOURCE (test code = 47382) NOT SPECIFIED SARS-CoV-2 (COVID-19) by RT-PCR (HIGH RISK)2021-02-26 00:00:00 Test Item Value Reference Range Interpretation Comments SARS-CoV-2 INTERPRETATION (test NEGATIVE code = 48474) SOURCE (test code = 83746) NOT SPECIFIED SARS-CoV-2 (COVID-19) by RT-PCR (HIGH RISK)2021-02-26 00:00:00 Test Item Value Reference Range Interpretation Comments SARS-CoV-2 INTERPRETATION (test NEGATIVE code = 73744) SOURCE (test code = 54606) NOT SPECIFIED SARS-CoV-2 (COVID-19) by RT-PCR (HIGH RISK)2021-02-26 00:00:00 Test Item Value Reference Range Interpretation Comments SARS-CoV-2 INTERPRETATION (test NEGATIVE code = 00638) SOURCE (test code = 81631) NOT SPECIFIED SARS-CoV-2 (COVID-19) by RT-PCR (HIGH RISK)2021-02-26 00:00:00 Test Item Value Reference Range Interpretation Comments SARS-CoV-2 INTERPRETATION (test NEGATIVE code = 48800) SOURCE (test code = 45947) NOT SPECIFIED SARS-CoV-2 (COVID-19) by RT-PCR (HIGH RISK)2021-02-26 00:00:00 Test Item Value Reference Range Interpretation Comments SARS-CoV-2 INTERPRETATION (test NEGATIVE code = 75833) SOURCE (test code = 93476) NOT SPECIFIED CULTURE, URINE [ADDED]2021-02-13 00:00:00 Test Item Value Reference Range Interpretation Comments CULTURE, URINE (test SPECIMEN NUMBER: code = 86939) [id number] CULTURE, URINE [ADDED]2021-02-13 00:00:00 Test Item Value Reference Range Interpretation Comments CULTURE, URINE (test SPECIMEN NUMBER: code = 75882) [id number] CULTURE, URINE [ADDED]2021-02-13 00:00:00 Test Item Value Reference Range Interpretation Comments CULTURE, URINE (test SPECIMEN NUMBER: code = 52085) [id number] CULTURE, URINE [ADDED]2021-02-13 00:00:00 Test Item Value Reference Range Interpretation Comments CULTURE, URINE (test SPECIMEN NUMBER: code = 91305) [id number] CULTURE, URINE [ADDED]2021-02-13 00:00:00 Test Item Value Reference Range Interpretation Comments CULTURE, URINE (test SPECIMEN NUMBER: code = 38396) [id number] CULTURE, URINE [ADDED]2021-02-13 00:00:00 Test Item Value Reference Range Interpretation Comments CULTURE, URINE (test SPECIMEN NUMBER: code = 92732) [id number] CULTURE, URINE [ADDED]2021-02-13 00:00:00 Test Item Value Reference Range Interpretation Comments CULTURE, URINE (test SPECIMEN NUMBER: code = 95382) [id number] CULTURE, URINE [ADDED]2021-02-13 00:00:00 Test Item Value Reference Range Interpretation Comments CULTURE, URINE (test SPECIMEN NUMBER: code = 56203) [id number] CULTURE, URINE [ADDED]2021-02-13 00:00:00 Test Item Value Reference Range Interpretation Comments CULTURE, URINE (test SPECIMEN NUMBER: code = 16026) [id number] CULTURE, URINE [ADDED]2021-02-13 00:00:00 Test Item Value Reference Range Interpretation Comments CULTURE, URINE (test SPECIMEN NUMBER: code = 08574) [id number] CULTURE, URINE [ADDED]2021-02-13 00:00:00 Test Item Value Reference Range Interpretation Comments CULTURE, URINE (test SPECIMEN NUMBER: code = 57838) [id number] CULTURE, URINE [ADDED]2021-02-13 00:00:00 Test Item Value Reference Range Interpretation Comments CULTURE, URINE (test SPECIMEN NUMBER: code = 19905) [id number] CULTURE, URINE [ADDED]2021-02-13 00:00:00 Test Item Value Reference Range Interpretation Comments CULTURE, URINE (test SPECIMEN NUMBER: code = 73228) [id number] CULTURE, URINE [ADDED]2021-02-13 00:00:00 Test Item Value Reference Range Interpretation Comments CULTURE, URINE (test SPECIMEN NUMBER: code = 87761) [id number] CULTURE, URINE [ADDED]2021-02-13 00:00:00 Test Item Value Reference Range Interpretation Comments CULTURE, URINE (test SPECIMEN NUMBER: code = 73319) [id number] CULTURE, URINE [ADDED]2021-02-13 00:00:00 Test Item Value Reference Range Interpretation Comments CULTURE, URINE (test SPECIMEN NUMBER: code = 61390) [id number] CULTURE, URINE [ADDED]2021-02-13 00:00:00 Test Item Value Reference Range Interpretation Comments CULTURE, URINE (test SPECIMEN NUMBER: code = 09459) [id number] CULTURE, URINE [ADDED]2021-02-13 00:00:00 Test Item Value Reference Range Interpretation Comments CULTURE, URINE (test SPECIMEN NUMBER: code = 74112) [id number] CULTURE, URINE [ADDED]2021-02-13 00:00:00 Test Item Value Reference Range Interpretation Comments CULTURE, URINE (test SPECIMEN NUMBER: code = 28954) [id number] CULTURE, URINE [ADDED]2021-02-13 00:00:00 Test Item Value Reference Range Interpretation Comments CULTURE, URINE (test SPECIMEN NUMBER: code = 10247) [id number] CULTURE, URINE [ADDED]2021-02-13 00:00:00 Test Item Value Reference Range Interpretation Comments CULTURE, URINE (test SPECIMEN NUMBER: code = 98187) [id number] VAGINAL PATHOGENS DNA [id number] 00:00:00 Test Item Value Reference Range Interpretation Comments ANDIE SPECIES (test code = ) NEGATIVE G. VAGINALIS (test code = ) POSITIVE T. VAGINALIS (test code = ) NEGATIVE VAGINAL PATHOGENS DNA [id number] 00:00:00 Test Item Value Reference Range Interpretation Comments ANDIE SPECIES (test code = 51620) NEGATIVE G. VAGINALIS (test code = 52245) POSITIVE T. VAGINALIS (test code = 98787) NEGATIVE VAGINAL PATHOGENS DNA [id number] 00:00:00 Test Item Value Reference Range Interpretation Comments ANDIE SPECIES (test code = 37630) NEGATIVE G. VAGINALIS (test code = 13959) POSITIVE T. VAGINALIS (test code = 27419) NEGATIVE VAGINAL PATHOGENS DNA [id number] 00:00:00 Test Item Value Reference Range Interpretation Comments ANDIE SPECIES (test code = 27361) NEGATIVE G. VAGINALIS (test code = 28309) POSITIVE T. VAGINALIS (test code = 40144) NEGATIVE VAGINAL PATHOGENS DNA [id number] 00:00:00 Test Item Value Reference Range Interpretation Comments ANDIE SPECIES (test code = 69385) NEGATIVE G. VAGINALIS (test code = 51470) POSITIVE T. VAGINALIS (test code = 33074) NEGATIVE VAGINAL PATHOGENS DNA [id number] 00:00:00 Test Item Value Reference Range Interpretation Comments ANDIE SPECIES (test code = 26226) NEGATIVE G. VAGINALIS (test code = 71001) POSITIVE T. VAGINALIS (test code = 21342) NEGATIVE VAGINAL PATHOGENS DNA [id number] 00:00:00 Test Item Value Reference Range Interpretation Comments ANDIE SPECIES (test code = 81180) NEGATIVE G. VAGINALIS (test code = 20648) POSITIVE T. VAGINALIS (test code = 29763) NEGATIVE VAGINAL PATHOGENS DNA [id number] 00:00:00 Test Item Value Reference Range Interpretation Comments ANDIE SPECIES (test code = 06566) NEGATIVE G. VAGINALIS (test code = 65753) POSITIVE T. VAGINALIS (test code = 04504) NEGATIVE VAGINAL PATHOGENS DNA [id number] 00:00:00 Test Item Value Reference Range Interpretation Comments ANDIE SPECIES (test code = 24207) NEGATIVE G. VAGINALIS (test code = 38017) POSITIVE T. VAGINALIS (test code = 40458) NEGATIVE VAGINAL PATHOGENS DNA [id number] 00:00:00 Test Item Value Reference Range Interpretation Comments ANDIE SPECIES (test code = 81895) NEGATIVE G. VAGINALIS (test code = 25258) POSITIVE T. VAGINALIS (test code = 22767) NEGATIVE VAGINAL PATHOGENS DNA [id number] 00:00:00 Test Item Value Reference Range Interpretation Comments ANDIE SPECIES (test code = 19198) NEGATIVE G. VAGINALIS (test code = 72880) POSITIVE T. VAGINALIS (test code = 74691) NEGATIVE VAGINAL PATHOGENS DNA [id number] 00:00:00 Test Item Value Reference Range Interpretation Comments ANDIE SPECIES (test code = 09644) NEGATIVE G. VAGINALIS (test code = 38280) POSITIVE T. VAGINALIS (test code = 64149) NEGATIVE VAGINAL PATHOGENS DNA [id number] 00:00:00 Test Item Value Reference Range Interpretation Comments ANDIE SPECIES (test code = 04625) NEGATIVE G. VAGINALIS (test code = 75644) POSITIVE T. VAGINALIS (test code = 66030) NEGATIVE VAGINAL PATHOGENS DNA [id number] 00:00:00 Test Item Value Reference Range Interpretation Comments ANDIE SPECIES (test code = 90344) NEGATIVE G. VAGINALIS (test code = 91030) POSITIVE T. VAGINALIS (test code = 56127) NEGATIVE VAGINAL PATHOGENS DNA [id number] 00:00:00 Test Item Value Reference Range Interpretation Comments ANDIE SPECIES (test code = 91033) NEGATIVE G. VAGINALIS (test code = 48470) POSITIVE T. VAGINALIS (test code = 94503) NEGATIVE VAGINAL PATHOGENS DNA [id number] 00:00:00 Test Item Value Reference Range Interpretation Comments ANDIE SPECIES (test code = 25553) NEGATIVE G. VAGINALIS (test code = 32610) POSITIVE T. VAGINALIS (test code = 65369) NEGATIVE VAGINAL PATHOGENS DNA [id number] 00:00:00 Test Item Value Reference Range Interpretation Comments ANDIE SPECIES (test code = 74813) NEGATIVE G. VAGINALIS (test code = 71035) POSITIVE T. VAGINALIS (test code = 27942) NEGATIVE VAGINAL PATHOGENS DNA [id number] 00:00:00 Test Item Value Reference Range Interpretation Comments ANDIE SPECIES (test code = 03291) NEGATIVE G. VAGINALIS (test code = 09728) POSITIVE T. VAGINALIS (test code = 53199) NEGATIVE VAGINAL PATHOGENS DNA [id number] 00:00:00 Test Item Value Reference Range Interpretation Comments ANDIE SPECIES (test code = 72459) NEGATIVE G. VAGINALIS (test code = 87810) POSITIVE T. VAGINALIS (test code = 35723) NEGATIVE VAGINAL PATHOGENS DNA [id number] 00:00:00 Test Item Value Reference Range Interpretation Comments ANDIE SPECIES (test code = ) NEGATIVE G. VAGINALIS (test code = 64963) POSITIVE T. VAGINALIS (test code = ) NEGATIVE VAGINAL PATHOGENS DNA [id number] 00:00:00 Test Item Value Reference Range Interpretation Comments ANDIE SPECIES (test code = ) NEGATIVE G. VAGINALIS (test code = 52066) POSITIVE T. VAGINALIS (test code = 75333) NEGATIVE BLOOD GROUP (ABO) AND RH [id number] 00:00:00 Test Item Value Reference Range Interpretation Comments BLOOD TYPE AND RH (test code = A POSITIVE 3901) BLOOD GROUP (ABO) AND RH [id number] 00:00:00 Test Item Value Reference Range Interpretation Comments BLOOD TYPE AND RH (test code = A POSITIVE 3901) BLOOD GROUP (ABO) AND RH [id number] 00:00:00 Test Item Value Reference Range Interpretation Comments BLOOD TYPE AND RH (test code = A POSITIVE 3901) HEMOGLOBIN [id number] 00:00:00 Test Item Value Reference Range Interpretation Comments HEMOGLOBIN A1c (test code = 48786) 11.8 % HEMOGLOBIN [id number] 00:00:00 Test Item Value Reference Range Interpretation Comments HEMOGLOBIN A1c (test code = 22657) 11.8 % HEMOGLOBIN [id number] 00:00:00 Test Item Value Reference Range Interpretation Comments HEMOGLOBIN A1c (test code = 31686) 11.8 % BLOOD GROUP (ABO) AND RH [id number] 00:00:00 Test Item Value Reference Range Interpretation Comments BLOOD TYPE AND RH (test code = A POSITIVE 3901) BLOOD GROUP (ABO) AND RH [id number] 00:00:00 Test Item Value Reference Range Interpretation Comments BLOOD TYPE AND RH (test code = A POSITIVE 3901) BLOOD GROUP (ABO) AND RH [id number] 00:00:00 Test Item Value Reference Range Interpretation Comments BLOOD TYPE AND RH (test code = A POSITIVE 3901) HEMOGLOBIN [id number] 00:00:00 Test Item Value Reference Range Interpretation Comments HEMOGLOBIN A1c (test code = 03984) 11.8 % HEMOGLOBIN [id number] 00:00:00 Test Item Value Reference Range Interpretation Comments HEMOGLOBIN A1c (test code = 15672) 11.8 % HEMOGLOBIN [id number] 00:00:00 Test Item Value Reference Range Interpretation Comments HEMOGLOBIN A1c (test code = 24940) 11.8 % BLOOD GROUP (ABO) AND RH [id number] 00:00:00 Test Item Value Reference Range Interpretation Comments BLOOD TYPE AND RH (test code = A POSITIVE 3901) BLOOD GROUP (ABO) AND RH [id number] 00:00:00 Test Item Value Reference Range Interpretation Comments BLOOD TYPE AND RH (test code = A POSITIVE 3901) BLOOD GROUP (ABO) AND RH [id number] 00:00:00 Test Item Value Reference Range Interpretation Comments BLOOD TYPE AND RH (test code = A POSITIVE 3901) HEMOGLOBIN [id number] 00:00:00 Test Item Value Reference Range Interpretation Comments HEMOGLOBIN A1c (test code = 73106) 11.8 % HEMOGLOBIN [id number] 00:00:00 Test Item Value Reference Range Interpretation Comments HEMOGLOBIN A1c (test code = 18778) 11.8 % HEMOGLOBIN [id number] 00:00:00 Test Item Value Reference Range Interpretation Comments HEMOGLOBIN A1c (test code = 50891) 11.8 % BLOOD GROUP (ABO) AND RH [id number] 00:00:00 Test Item Value Reference Range Interpretation Comments BLOOD TYPE AND RH (test code = A POSITIVE 3901) BLOOD GROUP (ABO) AND RH [id number] 00:00:00 Test Item Value Reference Range Interpretation Comments BLOOD TYPE AND RH (test code = A POSITIVE 3901) BLOOD GROUP (ABO) AND RH [id number] 00:00:00 Test Item Value Reference Range Interpretation Comments BLOOD TYPE AND RH (test code = A POSITIVE 3901) HEMOGLOBIN [id number] 00:00:00 Test Item Value Reference Range Interpretation Comments HEMOGLOBIN A1c (test code = 10229) 11.8 % HEMOGLOBIN [id number] 00:00:00 Test Item Value Reference Range Interpretation Comments HEMOGLOBIN A1c (test code = 12945) 11.8 % HEMOGLOBIN [id number] 00:00:00 Test Item Value Reference Range Interpretation Comments HEMOGLOBIN A1c (test code = 23725) 11.8 % BLOOD GROUP (ABO) AND RH [id number] 00:00:00 Test Item Value Reference Range Interpretation Comments BLOOD TYPE AND RH (test code = A POSITIVE 3901) BLOOD GROUP (ABO) AND RH [id number] 00:00:00 Test Item Value Reference Range Interpretation Comments BLOOD TYPE AND RH (test code = A POSITIVE 3901) BLOOD GROUP (ABO) AND RH [id number] 00:00:00 Test Item Value Reference Range Interpretation Comments BLOOD TYPE AND RH (test code = A POSITIVE 3901) HEMOGLOBIN [id number] 00:00:00 Test Item Value Reference Range Interpretation Comments HEMOGLOBIN A1c (test code = 40324) 11.8 % HEMOGLOBIN [id number] 00:00:00 Test Item Value Reference Range Interpretation Comments HEMOGLOBIN A1c (test code = 45819) 11.8 % HEMOGLOBIN [id number] 00:00:00 Test Item Value Reference Range Interpretation Comments HEMOGLOBIN A1c (test code = 06557) 11.8 % BLOOD GROUP (ABO) AND RH [id number] 00:00:00 Test Item Value Reference Range Interpretation Comments BLOOD TYPE AND RH (test code = A POSITIVE 3901) BLOOD GROUP (ABO) AND RH [id number] 00:00:00 Test Item Value Reference Range Interpretation Comments BLOOD TYPE AND RH (test code = A POSITIVE 3901) BLOOD GROUP (ABO) AND RH [id number] 00:00:00 Test Item Value Reference Range Interpretation Comments BLOOD TYPE AND RH (test code = A POSITIVE 3901) HEMOGLOBIN [id number] 00:00:00 Test Item Value Reference Range Interpretation Comments HEMOGLOBIN A1c (test code = 25939) 11.8 % HEMOGLOBIN [id number] 00:00:00 Test Item Value Reference Range Interpretation Comments HEMOGLOBIN A1c (test code = 10795) 11.8 % HEMOGLOBIN [id number] 00:00:00 Test Item Value Reference Range Interpretation Comments HEMOGLOBIN A1c (test code = 48793) 11.8 % BLOOD GROUP (ABO) AND RH [id number] 00:00:00 Test Item Value Reference Range Interpretation Comments BLOOD TYPE AND RH (test code = A POSITIVE 3901) BLOOD GROUP (ABO) AND RH [id number] 00:00:00 Test Item Value Reference Range Interpretation Comments BLOOD TYPE AND RH (test code = A POSITIVE 3901) BLOOD GROUP (ABO) AND RH [id number] 00:00:00 Test Item Value Reference Range Interpretation Comments BLOOD TYPE AND RH (test code = A POSITIVE 3901) HEMOGLOBIN [id number] 00:00:00 Test Item Value Reference Range Interpretation Comments HEMOGLOBIN A1c (test code = 38652) 11.8 % BLOOD GROUP (ABO) AND RH [id number] 00:00:00 Test Item Value Reference Range Interpretation Comments BLOOD TYPE AND RH (test code = A POSITIVE 3901) HEMOGLOBIN [id number] 00:00:00 Test Item Value Reference Range Interpretation Comments HEMOGLOBIN A1c (test code = 95327) 11.8 % HEMOGLOBIN [id number] 00:00:00 Test Item Value Reference Range Interpretation Comments HEMOGLOBIN A1c (test code = 08748) 11.8 % BLOOD GROUP (ABO) AND RH [id number] 00:00:00 Test Item Value Reference Range Interpretation Comments BLOOD TYPE AND RH (test code = A POSITIVE 3901) HEMOGLOBIN [id number] 00:00:00 Test Item Value Reference Range Interpretation Comments HEMOGLOBIN A1c (test code = 45394) 11.8 % HEMOGLOBIN [id number] 00:00:00 Test Item Value Reference Range Interpretation Comments HEMOGLOBIN A1c (test code = 43911) 11.8 % BLOOD GROUP (ABO) AND RH [id number] 00:00:00 Test Item Value Reference Range Interpretation Comments BLOOD TYPE AND RH (test code = A POSITIVE 3901) BLOOD GROUP (ABO) AND RH [id number] 00:00:00 Test Item Value Reference Range Interpretation Comments BLOOD TYPE AND RH (test code = A POSITIVE 3901) BLOOD GROUP (ABO) AND RH [id number] 00:00:00 Test Item Value Reference Range Interpretation Comments BLOOD TYPE AND RH (test code = A POSITIVE 3901) HEMOGLOBIN [id number] 00:00:00 Test Item Value Reference Range Interpretation Comments HEMOGLOBIN A1c (test code = 91315) 11.8 % HEMOGLOBIN [id number] 00:00:00 Test Item Value Reference Range Interpretation Comments HEMOGLOBIN A1c (test code = 87680) 11.8 % HEMOGLOBIN [id number] 00:00:00 Test Item Value Reference Range Interpretation Comments HEMOGLOBIN A1c (test code = 14982) 11.8 % BLOOD GROUP (ABO) AND RH [id number] 00:00:00 Test Item Value Reference Range Interpretation Comments BLOOD TYPE AND RH (test code = A POSITIVE 3901) BLOOD GROUP (ABO) AND RH [id number] 00:00:00 Test Item Value Reference Range Interpretation Comments BLOOD TYPE AND RH (test code = A POSITIVE 3901) BLOOD GROUP (ABO) AND RH [id number] 00:00:00 Test Item Value Reference Range Interpretation Comments BLOOD TYPE AND RH (test code = A POSITIVE 3901) HEMOGLOBIN [id number] 00:00:00 Test Item Value Reference Range Interpretation Comments HEMOGLOBIN A1c (test code = 18073) 11.8 % HEMOGLOBIN [id number] 00:00:00 Test Item Value Reference Range Interpretation Comments HEMOGLOBIN A1c (test code = 63945) 11.8 % HEMOGLOBIN [id number] 00:00:00 Test Item Value Reference Range Interpretation Comments HEMOGLOBIN A1c (test code = 22694) 11.8 % BLOOD GROUP (ABO) AND RH [id number] 00:00:00 Test Item Value Reference Range Interpretation Comments BLOOD TYPE AND RH (test code = A POSITIVE 3901) BLOOD GROUP (ABO) AND RH [id number] 00:00:00 Test Item Value Reference Range Interpretation Comments BLOOD TYPE AND RH (test code = A POSITIVE 3901) BLOOD GROUP (ABO) AND RH [id number] 00:00:00 Test Item Value Reference Range Interpretation Comments BLOOD TYPE AND RH (test code = A POSITIVE 3901) HEMOGLOBIN [id number] 00:00:00 Test Item Value Reference Range Interpretation Comments HEMOGLOBIN A1c (test code = 81827) 11.8 % HEMOGLOBIN [id number] 00:00:00 Test Item Value Reference Range Interpretation Comments HEMOGLOBIN A1c (test code = 58193) 11.8 % HEMOGLOBIN [id number] 00:00:00 Test Item Value Reference Range Interpretation Comments HEMOGLOBIN A1c (test code = 90335) 11.8 % COMPREHENSIVE METABOLIC [id number] 00:00:00 Test Item Value Reference Range Interpretation Comments GLUCOSE (test code = 2217) 277 MG/DL BUN (test code = 2208) 26 MG/DL CREATININE (test code = 2214) 1.04 MG/DL eGFR AMER. (test code 77 ML/MIN/1.73 = 15333) eGFR NON- AMER. (test 66 ML/MIN/1.73 code = 57366) CALC BUN/CREAT (test code = 25 RATIO [...] code = 2219) 51 U/L COMPREHENSIVE METABOLIC [id number] 00:00:00 Test Item Value Reference Range Interpretation Comments GLUCOSE (test code = 2217) 277 MG/DL BUN (test code = 2208) 26 MG/DL CREATININE (test code = 2214) 1.04 MG/DL eGFR AMER. (test code 77 ML/MIN/1.73 = 88172) eGFR NON- AMER. (test 66 ML/MIN/1.73 code = 04270) CALC BUN/CREAT (test code = 25 RATIO [...] (test code = 2219) 51 U/L CULTURE, [id number] 00:00:00 Test Item Value Reference Range Interpretation Comments CULTURE, URINE (test SPECIMEN NUMBER: code = 26579) [id number] CULTURE, [id number] 00:00:00 Test Item Value Reference Range Interpretation Comments CULTURE, URINE (test SPECIMEN NUMBER: code = 44513) [id number] COMPREHENSIVE METABOLIC [id number] 00:00:00 Test Item Value Reference Range Interpretation Comments GLUCOSE (test code = 2217) 277 MG/DL BUN (test code = 2208) 26 MG/DL CREATININE (test code = 2214) 1.04 MG/DL eGFR AMER. (test code 77 ML/MIN/1.73 = 38176) eGFR NON- AMER. (test 66 ML/MIN/1.73 code = 07469) CALC BUN/CREAT (test code = 25 RATIO [...] = 0.3 MG/DL 220) ALKALINE PHOSPHATASE (test 44 U/L code = 2204) AST (test code = 2218) 32 U/L ALT (test code = 2219) 51 U/L COMPREHENSIVE METABOLIC [id number] 00:00:00 Test Item Value Reference Range Interpretation Comments GLUCOSE (test code = 2217) 277 MG/DL BUN (test code = 2208) 26 MG/DL CREATININE (test code = 2214) 1.04 MG/DL eGFR AMER. (test code 77 ML/MIN/1.73 = 29804) eGFR NON- AMER. (test 66 ML/MIN/1.73 code = 43666) CALC BUN/CREAT (test code = 25 RATIO [...] (test code = 2219) 51 U/L CULTURE, [id number] 00:00:00 Test Item Value Reference Range Interpretation Comments CULTURE, URINE (test SPECIMEN NUMBER: code = 17352) [id number] CULTURE, [id number] 00:00:00 Test Item Value Reference Range Interpretation Comments CULTURE, URINE (test SPECIMEN NUMBER: code = 51969) [id number] COMPREHENSIVE METABOLIC [id number] 00:00:00 Test Item Value Reference Range Interpretation Comments GLUCOSE (test code = 2217) 277 MG/DL BUN (test code = 2208) 26 MG/DL CREATININE (test code = 2214) 1.04 MG/DL eGFR AMER. (test code 77 ML/MIN/1.73 = 69386) eGFR NON- AMER. (test 66 ML/MIN/1.73 code = 40013) CALC BUN/CREAT (test code = 25 RATIO [...] code = 2219) 51 U/L COMPREHENSIVE METABOLIC [id number] 00:00:00 Test Item Value Reference Range Interpretation Comments GLUCOSE (test code = 2217) 277 MG/DL BUN (test code = 2208) 26 MG/DL CREATININE (test code = 2214) 1.04 MG/DL eGFR AMER. (test code 77 ML/MIN/1.73 = 59192) eGFR NON- AMER. (test 66 ML/MIN/1.73 code = 22160) CALC BUN/CREAT (test code = 25 RATIO [...] (test code = 2219) 51 U/L CULTURE, [id number] 00:00:00 Test Item Value Reference Range Interpretation Comments CULTURE, URINE (test SPECIMEN NUMBER: code = 06420) [id number] CULTURE, [id number] 00:00:00 Test Item Value Reference Range Interpretation Comments CULTURE, URINE (test SPECIMEN NUMBER: code = 23012) [id number] COMPREHENSIVE METABOLIC [id number] 00:00:00 Test Item Value Reference Range Interpretation Comments GLUCOSE (test code = 2217) 277 MG/DL BUN (test code = 2208) 26 MG/DL CREATININE (test code = 2214) 1.04 MG/DL eGFR AMER. (test code 77 ML/MIN/1.73 = 04110) eGFR NON- AMER. (test 66 ML/MIN/1.73 code = 28016) CALC BUN/CREAT (test code = 25 RATIO [...] code = 2219) 51 U/L COMPREHENSIVE METABOLIC [id number] 00:00:00 Test Item Value Reference Range Interpretation Comments GLUCOSE (test code = 2217) 277 MG/DL BUN (test code = 2208) 26 MG/DL CREATININE (test code = 2214) 1.04 MG/DL eGFR AMER. (test code 77 ML/MIN/1.73 = 13342) eGFR NON- AMER. (test 66 ML/MIN/1.73 code = 36412) CALC BUN/CREAT (test code = 25 RATIO [...] (test code = 2219) 51 U/L CULTURE, [id number] 00:00:00 Test Item Value Reference Range Interpretation Comments CULTURE, URINE (test SPECIMEN NUMBER: code = 54152) [id number] CULTURE, [id number] 00:00:00 Test Item Value Reference Range Interpretation Comments CULTURE, URINE (test SPECIMEN NUMBER: code = 41332) [id number] COMPREHENSIVE METABOLIC [id number] 00:00:00 Test Item Value Reference Range Interpretation Comments GLUCOSE (test code = 2217) 277 MG/DL BUN (test code = 2208) 26 MG/DL CREATININE (test code = 2214) 1.04 MG/DL eGFR AMER. (test code 77 ML/MIN/1.73 = 85146) eGFR NON- AMER. (test 66 ML/MIN/1.73 code = 51798) CALC BUN/CREAT (test code = 25 RATIO [...] code = 2219) 51 U/L COMPREHENSIVE METABOLIC [id number] 00:00:00 Test Item Value Reference Range Interpretation Comments GLUCOSE (test code = 2217) 277 MG/DL BUN (test code = 2208) 26 MG/DL CREATININE (test code = 2214) 1.04 MG/DL eGFR AMER. (test code 77 ML/MIN/1.73 = 43883) eGFR NON- AMER. (test 66 ML/MIN/1.73 code = 73453) CALC BUN/CREAT (test code = 25 RATIO [...] (test code = 2219) 51 U/L CULTURE, [id number] 00:00:00 Test Item Value Reference Range Interpretation Comments CULTURE, URINE (test SPECIMEN NUMBER: code = 49597) [id number] CULTURE, [id number] 00:00:00 Test Item Value Reference Range Interpretation Comments CULTURE, URINE (test SPECIMEN NUMBER: code = 53159) [id number] COMPREHENSIVE METABOLIC [id number] 00:00:00 Test Item Value Reference Range Interpretation Comments GLUCOSE (test code = 2217) 277 MG/DL BUN (test code = 2208) 26 MG/DL CREATININE (test code = 2214) 1.04 MG/DL eGFR AMER. (test code 77 ML/MIN/1.73 = 00934) eGFR NON- AMER. (test 66 ML/MIN/1.73 code = 68776) CALC BUN/CREAT (test code = 25 RATIO [...] code = 2219) 51 U/L COMPREHENSIVE METABOLIC [id number] 00:00:00 Test Item Value Reference Range Interpretation Comments GLUCOSE (test code = 2217) 277 MG/DL BUN (test code = 2208) 26 MG/DL CREATININE (test code = 2214) 1.04 MG/DL eGFR AMER. (test code 77 ML/MIN/1.73 = 32726) eGFR NON- AMER. (test 66 ML/MIN/1.73 code = 21772) CALC BUN/CREAT (test code = 25 RATIO [...] (test code = 2219) 51 U/L CULTURE, [id number] 00:00:00 Test Item Value Reference Range Interpretation Comments CULTURE, URINE (test SPECIMEN NUMBER: code = 62414) [id number] CULTURE, [id number] 00:00:00 Test Item Value Reference Range Interpretation Comments CULTURE, URINE (test SPECIMEN NUMBER: code = 06158) [id number] COMPREHENSIVE METABOLIC [id number] 00:00:00 Test Item Value Reference Range Interpretation Comments GLUCOSE (test code = 2217) 277 MG/DL BUN (test code = 2208) 26 MG/DL CREATININE (test code = 2214) 1.04 MG/DL eGFR AMER. (test code 77 ML/MIN/1.73 = 02766) eGFR NON- AMER. (test 66 ML/MIN/1.73 code = 29641) CALC BUN/CREAT (test code = 25 RATIO [...] code = 2219) 51 U/L COMPREHENSIVE METABOLIC [id number] 00:00:00 Test Item Value Reference Range Interpretation Comments GLUCOSE (test code = 2217) 277 MG/DL BUN (test code = 2208) 26 MG/DL CREATININE (test code = 2214) 1.04 MG/DL eGFR AMER. (test code 77 ML/MIN/1.73 = 78224) eGFR NON- AMER. (test 66 ML/MIN/1.73 code = 28629) CALC BUN/CREAT (test code = 25 RATIO [...] (test code = 2219) 51 U/L CULTURE, [id number] 00:00:00 Test Item Value Reference Range Interpretation Comments CULTURE, URINE (test SPECIMEN NUMBER: code = 32912) [id number] CULTURE, [id number] 00:00:00 Test Item Value Reference Range Interpretation Comments CULTURE, URINE (test SPECIMEN NUMBER: code = 47807) [id number] COMPREHENSIVE METABOLIC [id number] 00:00:00 Test Item Value Reference Range Interpretation Comments GLUCOSE (test code = 2217) 277 MG/DL BUN (test code = 2208) 26 MG/DL CREATININE (test code = 2214) 1.04 MG/DL eGFR AMER. (test code 77 ML/MIN/1.73 = 05028) eGFR NON- AMER. (test 66 ML/MIN/1.73 code = 32524) CALC BUN/CREAT (test code = 25 RATIO [...] (test code = 2219) 51 U/L CULTURE, [id number] 00:00:00 Test Item Value Reference Range Interpretation Comments CULTURE, URINE (test SPECIMEN NUMBER: code = 56285) [id number] COMPREHENSIVE METABOLIC [id number] 00:00:00 Test Item Value Reference Range Interpretation Comments GLUCOSE (test code = 2217) 277 MG/DL BUN (test code = 2208) 26 MG/DL CREATININE (test code = 2214) 1.04 MG/DL eGFR AMER. (test code 77 ML/MIN/1.73 = 82725) eGFR NON- AMER. (test 66 ML/MIN/1.73 code = 39631) CALC BUN/CREAT (test code = 25 RATIO [...] code = 2219) 51 U/L COMPREHENSIVE METABOLIC [id number] 00:00:00 Test Item Value Reference Range Interpretation Comments GLUCOSE (test code = 2217) 277 MG/DL BUN (test code = 2208) 26 MG/DL CREATININE (test code = 2214) 1.04 MG/DL eGFR AMER. (test code 77 ML/MIN/1.73 = 01852) eGFR NON- AMER. (test 66 ML/MIN/1.73 code = 73804) CALC BUN/CREAT (test code = 25 RATIO [...] (test code = 2219) 51 U/L CULTURE, [id number] 00:00:00 Test Item Value Reference Range Interpretation Comments CULTURE, URINE (test SPECIMEN NUMBER: code = 12390) [id number] CULTURE, [id number] 00:00:00 Test Item Value Reference Range Interpretation Comments CULTURE, URINE (test SPECIMEN NUMBER: code = 74283) [id number] COMPREHENSIVE METABOLIC [id number] 00:00:00 Test Item Value Reference Range Interpretation Comments GLUCOSE (test code = 2217) 277 MG/DL BUN (test code = 2208) 26 MG/DL CREATININE (test code = 2214) 1.04 MG/DL eGFR AMER. (test code 77 ML/MIN/1.73 = 61864) eGFR NON- AMER. (test 66 ML/MIN/1.73 code = 45587) CALC BUN/CREAT (test code = 25 RATIO [...] code = 2219) 51 U/L COMPREHENSIVE METABOLIC [id number] 00:00:00 Test Item Value Reference Range Interpretation Comments GLUCOSE (test code = 2217) 277 MG/DL BUN (test code = 2208) 26 MG/DL CREATININE (test code = 2214) 1.04 MG/DL eGFR AMER. (test code 77 ML/MIN/1.73 = 40690) eGFR NON- AMER. (test 66 ML/MIN/1.73 code = 75981) CALC BUN/CREAT (test code = 25 RATIO [...] (test code = 2219) 51 U/L CULTURE, [id number] 00:00:00 Test Item Value Reference Range Interpretation Comments CULTURE, URINE (test SPECIMEN NUMBER: code = 87480) [id number] CULTURE, [id number] 00:00:00 Test Item Value Reference Range Interpretation Comments CULTURE, URINE (test SPECIMEN NUMBER: code = 17537) [id number] COMPREHENSIVE METABOLIC [id number] 00:00:00 Test Item Value Reference Range Interpretation Comments GLUCOSE (test code = 2217) 277 MG/DL BUN (test code = 2208) 26 MG/DL CREATININE (test code = 2214) 1.04 MG/DL eGFR AMER. (test code 77 ML/MIN/1.73 = 14626) eGFR NON- AMER. (test 66 ML/MIN/1.73 code = 12459) CALC BUN/CREAT (test code = 25 RATIO [...] code = 2219) 51 U/L COMPREHENSIVE METABOLIC [id number] 00:00:00 Test Item Value Reference Range Interpretation Comments GLUCOSE (test code = 2217) 277 MG/DL BUN (test code = 2208) 26 MG/DL CREATININE (test code = 2214) 1.04 MG/DL eGFR AMER. (test code 77 ML/MIN/1.73 = 09372) eGFR NON- AMER. (test 66 ML/MIN/1.73 code = 01862) CALC BUN/CREAT (test code = 25 RATIO [...] (test code = 2219) 51 U/L CULTURE, [id number] 00:00:00 Test Item Value Reference Range Interpretation Comments CULTURE, URINE (test SPECIMEN NUMBER: code = 34329) [id number] CULTURE, [id number] 00:00:00 Test Item Value Reference Range Interpretation Comments CULTURE, URINE (test SPECIMEN NUMBER: code = 92840) [id number] CBC W/AUTO [id number] 00:00:00 Test Item Value Reference Range Interpretation [...] NUCLEATED RBCS (test code = 0.00 K/UL 67058) CBC W/AUTO [id number] 00:00:00 Test Item Value Reference Range Interpretation [...] NUCLEATED RBCS (test code = 0.00 K/UL 19412) CBC W/AUTO [id number] 00:00:00 Test Item Value Reference Range Interpretation [...] NUCLEATED RBCS (test code = 0.00 K/UL 69773) CBC W/AUTO [id number] 00:00:00 Test Item Value Reference Range Interpretation [...] NUCLEATED RBCS (test code = 0.00 K/UL 89829) CBC W/AUTO [id number] 00:00:00 Test Item Value Reference Range Interpretation [...] NUCLEATED RBCS (test code = 0.00 K/UL 09526) CBC W/AUTO [id number] 00:00:00 Test Item Value Reference Range Interpretation [...] NUCLEATED RBCS (test code = 0.00 K/UL 66730) CBC W/AUTO [id number] 00:00:00 Test Item Value Reference Range Interpretation [...] NUCLEATED RBCS (test code = 0.00 K/UL 14334) CBC W/AUTO [id number] 00:00:00 Test Item Value Reference Range Interpretation [...] NUCLEATED RBCS (test code = 0.00 K/UL 15674) CBC W/AUTO [id number] 00:00:00 Test Item Value Reference Range Interpretation [...] NUCLEATED RBCS (test code = 0.00 K/UL 13182) CBC W/AUTO [id number] 00:00:00 Test Item Value Reference Range Interpretation [...] NUCLEATED RBCS (test code = 0.00 K/UL 31415) CBC W/AUTO [id number] 00:00:00 Test Item Value Reference Range Interpretation [...] NUCLEATED RBCS (test code = 0.00 K/UL 10284) CBC W/AUTO [id number] 00:00:00 Test Item Value Reference Range Interpretation [...] NUCLEATED RBCS (test code = 0.00 K/UL 33100) CBC W/AUTO [id number] 00:00:00 Test Item Value Reference Range Interpretation [...] NUCLEATED RBCS (test code = 0.00 K/UL 70709) CBC W/AUTO [id number] 00:00:00 Test Item Value Reference Range Interpretation [...] NUCLEATED RBCS (test code = 0.00 K/UL 04188) CBC W/AUTO [id number] 00:00:00 Test Item Value Reference Range Interpretation [...] NUCLEATED RBCS (test code = 0.00 K/UL 97803) CBC W/AUTO [id number] 00:00:00 Test Item Value Reference Range Interpretation [...] NUCLEATED RBCS (test code = 0.00 K/UL 83638) CBC W/AUTO [id number] 00:00:00 Test Item Value Reference Range Interpretation [...] NUCLEATED RBCS (test code = 0.00 K/UL 88929) CBC W/AUTO [id number] 00:00:00 Test Item Value Reference Range Interpretation [...] NUCLEATED RBCS (test code = 0.00 K/UL 28876) CBC W/AUTO [id number] 00:00:00 Test Item Value Reference Range Interpretation [...] NUCLEATED RBCS (test code = 0.00 K/UL 68844) CBC W/AUTO [id number] 00:00:00 Test Item Value Reference Range Interpretation [...] NUCLEATED RBCS (test code = 0.00 K/UL 18490) CBC W/AUTO [id number] 00:00:00 Test Item Value Reference Range Interpretation [...] NUCLEATED RBCS (test code = 0.00 K/UL 95063) CBC W/AUTO [id number] 00:00:00 Test Item Value Reference Range Interpretation [...] NUCLEATED RBCS (test code = 0.00 K/UL 69964) CBC W/AUTO [id number] 00:00:00 Test Item Value Reference Range Interpretation [...] NUCLEATED RBCS (test code = 0.00 K/UL 62757) CBC W/AUTO [id number] 00:00:00 Test Item Value Reference Range Interpretation [...] NUCLEATED RBCS (test code = 0.00 K/UL 94798) CBC W/AUTO [id number] 00:00:00 Test Item Value Reference Range Interpretation [...] NUCLEATED RBCS (test code = 0.00 K/UL 75565) CBC W/AUTO [id number] 00:00:00 Test Item Value Reference Range Interpretation [...] NUCLEATED RBCS (test code = 0.00 K/UL 33980) CBC W/AUTO [id number] 00:00:00 Test Item Value Reference Range Interpretation [...] NUCLEATED RBCS (test code = 0.00 K/UL 11630) CBC W/AUTO [id number] 00:00:00 Test Item Value Reference Range Interpretation [...] NUCLEATED RBCS (test code = 0.00 K/UL 73400) CBC W/AUTO [id number] 00:00:00 Test Item Value Reference Range Interpretation [...] NUCLEATED RBCS (test code = 0.00 K/UL 79329) CBC W/AUTO [id number] 00:00:00 Test Item Value Reference Range Interpretation [...] NUCLEATED RBCS (test code = 0.00 K/UL 65941) CBC W/AUTO [id number] 00:00:00 Test Item Value Reference Range Interpretation [...] NUCLEATED RBCS (test code = 0.00 K/UL 80814) CBC W/AUTO [id number] 00:00:00 Test Item Value Reference Range Interpretation [...] NUCLEATED RBCS (test code = 0.00 K/UL 29701) VAGINAL PATHOGENS DNA [id number] 00:00:00 Test Item Value Reference Range Interpretation Comments ANDIE SPECIES (test code = ) NEGATIVE G. VAGINALIS (test code = 42303) NEGATIVE T. VAGINALIS (test code = 19693) NEGATIVE VAGINAL PATHOGENS DNA [id number] 00:00:00 Test Item Value Reference Range Interpretation Comments ANDIE SPECIES (test code = ) NEGATIVE G. VAGINALIS (test code = 66556) NEGATIVE T. VAGINALIS (test code = 70421) NEGATIVE VAGINAL PATHOGENS DNA [id number] 00:00:00 Test Item Value Reference Range Interpretation Comments ANDIE SPECIES (test code = ) NEGATIVE G. VAGINALIS (test code = 63149) NEGATIVE T. VAGINALIS (test code = 88804) NEGATIVE VAGINAL PATHOGENS DNA [id number] 00:00:00 Test Item Value Reference Range Interpretation Comments ANDIE SPECIES (test code = 41122) NEGATIVE G. VAGINALIS (test code = 03062) NEGATIVE T. VAGINALIS (test code = 29905) NEGATIVE VAGINAL PATHOGENS DNA [id number] 00:00:00 Test Item Value Reference Range Interpretation Comments ANDIE SPECIES (test code = 44696) NEGATIVE G. VAGINALIS (test code = 56476) NEGATIVE T. VAGINALIS (test code = 08132) NEGATIVE VAGINAL PATHOGENS DNA [id number] 00:00:00 Test Item Value Reference Range Interpretation Comments ANDIE SPECIES (test code = 58218) NEGATIVE G. VAGINALIS (test code = 11914) NEGATIVE T. VAGINALIS (test code = 00831) NEGATIVE VAGINAL PATHOGENS DNA [id number] 00:00:00 Test Item Value Reference Range Interpretation Comments ANDIE SPECIES (test code = 54125) NEGATIVE G. VAGINALIS (test code = 46942) NEGATIVE T. VAGINALIS (test code = 81793) NEGATIVE VAGINAL PATHOGENS DNA [id number] 00:00:00 Test Item Value Reference Range Interpretation Comments ANDIE SPECIES (test code = 89063) NEGATIVE G. VAGINALIS (test code = 65056) NEGATIVE T. VAGINALIS (test code = 93116) NEGATIVE VAGINAL PATHOGENS DNA [id number] 00:00:00 Test Item Value Reference Range Interpretation Comments ANDIE SPECIES (test code = 28912) NEGATIVE G. VAGINALIS (test code = 49191) NEGATIVE T. VAGINALIS (test code = 94891) NEGATIVE VAGINAL PATHOGENS DNA [id number] 00:00:00 Test Item Value Reference Range Interpretation Comments ANDIE SPECIES (test code = ) NEGATIVE G. VAGINALIS (test code = 84274) NEGATIVE T. VAGINALIS (test code = 59717) NEGATIVE VAGINAL PATHOGENS DNA [id number] 00:00:00 Test Item Value Reference Range Interpretation Comments ANDIE SPECIES (test code = ) NEGATIVE G. VAGINALIS (test code = 32588) NEGATIVE T. VAGINALIS (test code = 44420) NEGATIVE VAGINAL PATHOGENS DNA [id number] 00:00:00 Test Item Value Reference Range Interpretation Comments ANDIE SPECIES (test code = ) NEGATIVE G. VAGINALIS (test code = 75532) NEGATIVE T. VAGINALIS (test code = 19249) NEGATIVE VAGINAL PATHOGENS DNA [id number] 00:00:00 Test Item Value Reference Range Interpretation Comments ANDIE SPECIES (test code = 89170) NEGATIVE G. VAGINALIS (test code = 07946) NEGATIVE T. VAGINALIS (test code = 25666) NEGATIVE VAGINAL PATHOGENS DNA [id number] 00:00:00 Test Item Value Reference Range Interpretation Comments ANDIE SPECIES (test code = 98572) NEGATIVE G. VAGINALIS (test code = 33092) NEGATIVE T. VAGINALIS (test code = 99546) NEGATIVE VAGINAL PATHOGENS DNA [id number] 00:00:00 Test Item Value Reference Range Interpretation Comments ANDIE SPECIES (test code = ) NEGATIVE G. VAGINALIS (test code = 45921) NEGATIVE T. VAGINALIS (test code = 30178) NEGATIVE VAGINAL PATHOGENS DNA [id number] 00:00:00 Test Item Value Reference Range Interpretation Comments ANDIE SPECIES (test code = 94355) NEGATIVE G. VAGINALIS (test code = 68198) NEGATIVE T. VAGINALIS (test code = 33010) NEGATIVE VAGINAL PATHOGENS DNA [id number] 00:00:00 Test Item Value Reference Range Interpretation Comments ANDIE SPECIES (test code = 35479) NEGATIVE G. VAGINALIS (test code = 75299) NEGATIVE T. VAGINALIS (test code = 73214) NEGATIVE VAGINAL PATHOGENS DNA [id number] 00:00:00 Test Item Value Reference Range Interpretation Comments ANDIE SPECIES (test code = 96262) NEGATIVE G. VAGINALIS (test code = 23368) NEGATIVE T. VAGINALIS (test code = 57454) NEGATIVE VAGINAL PATHOGENS DNA [id number] 00:00:00 Test Item Value Reference Range Interpretation Comments ANDIE SPECIES (test code = 93601) NEGATIVE G. VAGINALIS (test code = 15512) NEGATIVE T. VAGINALIS (test code = 55894) NEGATIVE VAGINAL PATHOGENS DNA [id number] 00:00:00 Test Item Value Reference Range Interpretation Comments ANDIE SPECIES (test code = 85964) NEGATIVE G. VAGINALIS (test code = 38201) NEGATIVE T. VAGINALIS (test code = 67319) NEGATIVE VAGINAL PATHOGENS DNA [id number] 00:00:00 Test Item Value Reference Range Interpretation Comments ANDIE SPECIES (test code = ) NEGATIVE G. VAGINALIS (test code = 29355) NEGATIVE T. VAGINALIS (test code = 45732) NEGATIVE HEMOGLOBIN [id number] 00:00:00 Test Item Value Reference Range Interpretation Comments HEMOGLOBIN A1c (test code = 49412) 11.4 % HEMOGLOBIN [id number] 00:00:00 Test Item Value Reference Range Interpretation Comments HEMOGLOBIN A1c (test code = 33942) 11.4 % HEMOGLOBIN [id number] 00:00:00 Test Item Value Reference Range Interpretation Comments HEMOGLOBIN A1c (test code = 19222) 11.4 % LIPID [id number] 00:00:00 Test Item Value Reference Range Interpretation Comments CHOLESTEROL (test code = 2210) 162 MG/DL TRIGLYCERIDES (test code = 2232) 387 MG/DL HDL CHOLESTEROL (test code = 2220) 30 MG/DL CALC LDL CHOL (test code = 2237) 80 MG/DL RISK RATIO LDL/HDL (test code = 2.67 RATIO 2238) LIPID [id number] 00:00:00 Test Item Value Reference Range Interpretation Comments CHOLESTEROL (test code = 2210) 162 MG/DL TRIGLYCERIDES (test code = 2232) 387 MG/DL HDL CHOLESTEROL (test code = 2220) 30 MG/DL CALC LDL CHOL (test code = 2237) 80 MG/DL RISK RATIO LDL/HDL (test code = 2.67 RATIO 2238) COMPREHENSIVE METABOLIC [id number] 00:00:00 Test Item Value Reference Range Interpretation Comments GLUCOSE (test code = 2217) 236 MG/DL BUN (test code = 2208) 14 MG/DL CREATININE (test code = 2214) 0.71 MG/DL eGFR AMER. (test code 122 ML/MIN/1.73 = 63401) eGFR NON- AMER. (test 105 ML/MIN/1.73 code = 21606) CALC BUN/CREAT (test code = 20 RATIO [...] code = 2219) 69 U/L COMPREHENSIVE METABOLIC [id number] 00:00:00 Test Item Value Reference Range Interpretation Comments GLUCOSE (test code = 2217) 236 MG/DL BUN (test code = 2208) 14 MG/DL CREATININE (test code = 2214) 0.71 MG/DL eGFR AMER. (test code 122 ML/MIN/1.73 = 15332) eGFR NON- AMER. (test 105 ML/MIN/1.73 code = 71014) CALC BUN/CREAT (test code = 20 RATIO [...] (test code = 2219) 69 U/L HEMOGLOBIN [id number] 00:00:00 Test Item Value Reference Range Interpretation Comments HEMOGLOBIN A1c (test code = 15578) 11.4 % HEMOGLOBIN [id number] 00:00:00 Test Item Value Reference Range Interpretation Comments HEMOGLOBIN A1c (test code = 35381) 11.4 % HEMOGLOBIN [id number] 00:00:00 Test Item Value Reference Range Interpretation Comments HEMOGLOBIN A1c (test code = 28235) 11.4 % LIPID [id number] 00:00:00 Test Item Value Reference Range Interpretation Comments CHOLESTEROL (test code = 2210) 162 MG/DL TRIGLYCERIDES (test code = 2232) 387 MG/DL HDL CHOLESTEROL (test code = 2220) 30 MG/DL CALC LDL CHOL (test code = 2237) 80 MG/DL RISK RATIO LDL/HDL (test code = 2.67 RATIO 2238) LIPID [id number] 00:00:00 Test Item Value Reference Range Interpretation Comments CHOLESTEROL (test code = 2210) 162 MG/DL TRIGLYCERIDES (test code = 2232) 387 MG/DL HDL CHOLESTEROL (test code = 2220) 30 MG/DL CALC LDL CHOL (test code = 2237) 80 MG/DL RISK RATIO LDL/HDL (test code = 2.67 RATIO 2238) COMPREHENSIVE METABOLIC [id number] 00:00:00 Test Item Value Reference Range Interpretation Comments GLUCOSE (test code = 2217) 236 MG/DL BUN (test code = 2208) 14 MG/DL CREATININE (test code = 2214) 0.71 MG/DL eGFR AMER. (test code 122 ML/MIN/1.73 = 03039) eGFR NON- AMER. (test 105 ML/MIN/1.73 code = 52139) CALC BUN/CREAT (test code = 20 RATIO [...] code = 2219) 69 U/L COMPREHENSIVE METABOLIC [id number] 00:00:00 Test Item Value Reference Range Interpretation Comments GLUCOSE (test code = 2217) 236 MG/DL BUN (test code = 2208) 14 MG/DL CREATININE (test code = 2214) 0.71 MG/DL eGFR AMER. (test code 122 ML/MIN/1.73 = 39220) eGFR NON- AMER. (test 105 ML/MIN/1.73 code = 98304) CALC BUN/CREAT (test code = 20 RATIO [...] (test code = 2219) 69 U/L HEMOGLOBIN [id number] 00:00:00 Test Item Value Reference Range Interpretation Comments HEMOGLOBIN A1c (test code = 26583) 11.4 % HEMOGLOBIN [id number] 00:00:00 Test Item Value Reference Range Interpretation Comments HEMOGLOBIN A1c (test code = 72872) 11.4 % HEMOGLOBIN [id number] 00:00:00 Test Item Value Reference Range Interpretation Comments HEMOGLOBIN A1c (test code = 81897) 11.4 % LIPID [id number] 00:00:00 Test Item Value Reference Range Interpretation Comments CHOLESTEROL (test code = 2210) 162 MG/DL TRIGLYCERIDES (test code = 2232) 387 MG/DL HDL CHOLESTEROL (test code = 2220) 30 MG/DL CALC LDL CHOL (test code = 2237) 80 MG/DL RISK RATIO LDL/HDL (test code = 2.67 RATIO 2238) LIPID [id number] 00:00:00 Test Item Value Reference Range Interpretation Comments CHOLESTEROL (test code = 2210) 162 MG/DL TRIGLYCERIDES (test code = 2232) 387 MG/DL HDL CHOLESTEROL (test code = 2220) 30 MG/DL CALC LDL CHOL (test code = 2237) 80 MG/DL RISK RATIO LDL/HDL (test code = 2.67 RATIO 2238) COMPREHENSIVE METABOLIC [id number] 00:00:00 Test Item Value Reference Range Interpretation Comments GLUCOSE (test code = 2217) 236 MG/DL BUN (test code = 2208) 14 MG/DL CREATININE (test code = 2214) 0.71 MG/DL eGFR AMER. (test code 122 ML/MIN/1.73 = 87544) eGFR NON- AMER. (test 105 ML/MIN/1.73 code = 09377) CALC BUN/CREAT (test code = 20 RATIO [...] code = 2219) 69 U/L COMPREHENSIVE METABOLIC [id number] 00:00:00 Test Item Value Reference Range Interpretation Comments GLUCOSE (test code = 2217) 236 MG/DL BUN (test code = 2208) 14 MG/DL CREATININE (test code = 2214) 0.71 MG/DL eGFR AMER. (test code 122 ML/MIN/1.73 = 32057) eGFR NON- AMER. (test 105 ML/MIN/1.73 code = 06202) CALC BUN/CREAT (test code = 20 RATIO [...] (test code = 2219) 69 U/L HEMOGLOBIN [id number] 00:00:00 Test Item Value Reference Range Interpretation Comments HEMOGLOBIN A1c (test code = 03889) 11.4 % HEMOGLOBIN [id number] 00:00:00 Test Item Value Reference Range Interpretation Comments HEMOGLOBIN A1c (test code = 61083) 11.4 % HEMOGLOBIN [id number] 00:00:00 Test Item Value Reference Range Interpretation Comments HEMOGLOBIN A1c (test code = 63565) 11.4 % LIPID [id number] 00:00:00 Test Item Value Reference Range Interpretation Comments CHOLESTEROL (test code = 2210) 162 MG/DL TRIGLYCERIDES (test code = 2232) 387 MG/DL HDL CHOLESTEROL (test code = 2220) 30 MG/DL CALC LDL CHOL (test code = 2237) 80 MG/DL RISK RATIO LDL/HDL (test code = 2.67 RATIO 2238) LIPID [id number] 00:00:00 Test Item Value Reference Range Interpretation Comments CHOLESTEROL (test code = 2210) 162 MG/DL TRIGLYCERIDES (test code = 2232) 387 MG/DL HDL CHOLESTEROL (test code = 2220) 30 MG/DL CALC LDL CHOL (test code = 2237) 80 MG/DL RISK RATIO LDL/HDL (test code = 2.67 RATIO 2238) COMPREHENSIVE METABOLIC [id number] 00:00:00 Test Item Value Reference Range Interpretation Comments GLUCOSE (test code = 2217) 236 MG/DL BUN (test code = 2208) 14 MG/DL CREATININE (test code = 2214) 0.71 MG/DL eGFR AMER. (test code 122 ML/MIN/1.73 = 15386) eGFR NON- AMER. (test 105 ML/MIN/1.73 code = 66141) CALC BUN/CREAT (test code = 20 RATIO [...] code = 2219) 69 U/L COMPREHENSIVE METABOLIC [id number] 00:00:00 Test Item Value Reference Range Interpretation Comments GLUCOSE (test code = 2217) 236 MG/DL BUN (test code = 2208) 14 MG/DL CREATININE (test code = 2214) 0.71 MG/DL eGFR AMER. (test code 122 ML/MIN/1.73 = 45268) eGFR NON- AMER. (test 105 ML/MIN/1.73 code = 02191) CALC BUN/CREAT (test code = 20 RATIO [...] (test code = 2219) 69 U/L HEMOGLOBIN [id number] 00:00:00 Test Item Value Reference Range Interpretation Comments HEMOGLOBIN A1c (test code = 30829) 11.4 % HEMOGLOBIN [id number] 00:00:00 Test Item Value Reference Range Interpretation Comments HEMOGLOBIN A1c (test code = 05993) 11.4 % HEMOGLOBIN [id number] 00:00:00 Test Item Value Reference Range Interpretation Comments HEMOGLOBIN A1c (test code = 50235) 11.4 % LIPID [id number] 00:00:00 Test Item Value Reference Range Interpretation Comments CHOLESTEROL (test code = 2210) 162 MG/DL TRIGLYCERIDES (test code = 2232) 387 MG/DL HDL CHOLESTEROL (test code = 2220) 30 MG/DL CALC LDL CHOL (test code = 2237) 80 MG/DL RISK RATIO LDL/HDL (test code = 2.67 RATIO 2238) LIPID [id number] 00:00:00 Test Item Value Reference Range Interpretation Comments CHOLESTEROL (test code = 2210) 162 MG/DL TRIGLYCERIDES (test code = 2232) 387 MG/DL HDL CHOLESTEROL (test code = 2220) 30 MG/DL CALC LDL CHOL (test code = 2237) 80 MG/DL RISK RATIO LDL/HDL (test code = 2.67 RATIO 2238) COMPREHENSIVE METABOLIC [id number] 00:00:00 Test Item Value Reference Range Interpretation Comments GLUCOSE (test code = 2217) 236 MG/DL BUN (test code = 2208) 14 MG/DL CREATININE (test code = 2214) 0.71 MG/DL eGFR AMER. (test code 122 ML/MIN/1.73 = 88460) eGFR NON- AMER. (test 105 ML/MIN/1.73 code = 42109) CALC BUN/CREAT (test code = 20 RATIO [...] code = 2219) 69 U/L COMPREHENSIVE METABOLIC [id number] 00:00:00 Test Item Value Reference Range Interpretation Comments GLUCOSE (test code = 2217) 236 MG/DL BUN (test code = 2208) 14 MG/DL CREATININE (test code = 2214) 0.71 MG/DL eGFR AMER. (test code 122 ML/MIN/1.73 = 65344) eGFR NON- AMER. (test 105 ML/MIN/1.73 code = 84773) CALC BUN/CREAT (test code = 20 RATIO [...] (test code = 2219) 69 U/L HEMOGLOBIN [id number] 00:00:00 Test Item Value Reference Range Interpretation Comments HEMOGLOBIN A1c (test code = 73951) 11.4 % HEMOGLOBIN [id number] 00:00:00 Test Item Value Reference Range Interpretation Comments HEMOGLOBIN A1c (test code = 15398) 11.4 % HEMOGLOBIN [id number] 00:00:00 Test Item Value Reference Range Interpretation Comments HEMOGLOBIN A1c (test code = 00749) 11.4 % LIPID [id number] 00:00:00 Test Item Value Reference Range Interpretation Comments CHOLESTEROL (test code = 2210) 162 MG/DL TRIGLYCERIDES (test code = 2232) 387 MG/DL HDL CHOLESTEROL (test code = 2220) 30 MG/DL CALC LDL CHOL (test code = 2237) 80 MG/DL RISK RATIO LDL/HDL (test code = 2.67 RATIO 2238) LIPID [id number] 00:00:00 Test Item Value Reference Range Interpretation Comments CHOLESTEROL (test code = 2210) 162 MG/DL TRIGLYCERIDES (test code = 2232) 387 MG/DL HDL CHOLESTEROL (test code = 2220) 30 MG/DL CALC LDL CHOL (test code = 2237) 80 MG/DL RISK RATIO LDL/HDL (test code = 2.67 RATIO 2238) COMPREHENSIVE METABOLIC [id number] 00:00:00 Test Item Value Reference Range Interpretation Comments GLUCOSE (test code = 2217) 236 MG/DL BUN (test code = 2208) 14 MG/DL CREATININE (test code = 2214) 0.71 MG/DL eGFR AMER. (test code 122 ML/MIN/1.73 = 26702) eGFR NON- AMER. (test 105 ML/MIN/1.73 code = 30087) CALC BUN/CREAT (test code = 20 RATIO [...] code = 2219) 69 U/L COMPREHENSIVE METABOLIC [id number] 00:00:00 Test Item Value Reference Range Interpretation Comments GLUCOSE (test code = 2217) 236 MG/DL BUN (test code = 2208) 14 MG/DL CREATININE (test code = 2214) 0.71 MG/DL eGFR AMER. (test code 122 ML/MIN/1.73 = 42603) eGFR NON- AMER. (test 105 ML/MIN/1.73 code = 80449) CALC BUN/CREAT (test code = 20 RATIO [...] (test code = 2219) 69 U/L HEMOGLOBIN [id number] 00:00:00 Test Item Value Reference Range Interpretation Comments HEMOGLOBIN A1c (test code = 86127) 11.4 % HEMOGLOBIN [id number] 00:00:00 Test Item Value Reference Range Interpretation Comments HEMOGLOBIN A1c (test code = 54811) 11.4 % HEMOGLOBIN [id number] 00:00:00 Test Item Value Reference Range Interpretation Comments HEMOGLOBIN A1c (test code = 53125) 11.4 % LIPID [id number] 00:00:00 Test Item Value Reference Range Interpretation Comments CHOLESTEROL (test code = 2210) 162 MG/DL TRIGLYCERIDES (test code = 2232) 387 MG/DL HDL CHOLESTEROL (test code = 2220) 30 MG/DL CALC LDL CHOL (test code = 2237) 80 MG/DL RISK RATIO LDL/HDL (test code = 2.67 RATIO 2238) LIPID [id number] 00:00:00 Test Item Value Reference Range Interpretation Comments CHOLESTEROL (test code = 2210) 162 MG/DL TRIGLYCERIDES (test code = 2232) 387 MG/DL HDL CHOLESTEROL (test code = 2220) 30 MG/DL CALC LDL CHOL (test code = 2237) 80 MG/DL RISK RATIO LDL/HDL (test code = 2.67 RATIO 2238) HEMOGLOBIN [id number] 00:00:00 Test Item Value Reference Range Interpretation Comments HEMOGLOBIN A1c (test code = 65027) 11.4 % COMPREHENSIVE METABOLIC [id number] 00:00:00 Test Item Value Reference Range Interpretation Comments GLUCOSE (test code = 2217) 236 MG/DL BUN (test code = 2208) 14 MG/DL CREATININE (test code = 2214) 0.71 MG/DL eGFR AMER. (test code 122 ML/MIN/1.73 = 61486) eGFR NON- AMER. (test 105 ML/MIN/1.73 code = 74707) CALC BUN/CREAT (test code = 20 RATIO [...] code = 2219) 69 U/L COMPREHENSIVE METABOLIC [id number] 00:00:00 Test Item Value Reference Range Interpretation Comments GLUCOSE (test code = 2217) 236 MG/DL BUN (test code = 2208) 14 MG/DL CREATININE (test code = 2214) 0.71 MG/DL eGFR AMER. (test code 122 ML/MIN/1.73 = 13637) eGFR NON- AMER. (test 105 ML/MIN/1.73 code = 35258) CALC BUN/CREAT (test code = 20 RATIO [...] (test code = 2219) 69 U/L HEMOGLOBIN [id number] 00:00:00 Test Item Value Reference Range Interpretation Comments HEMOGLOBIN A1c (test code = 80526) 11.4 % LIPID [id number] 00:00:00 Test Item Value Reference Range Interpretation Comments CHOLESTEROL (test code = 2210) 162 MG/DL TRIGLYCERIDES (test code = 2232) 387 MG/DL HDL CHOLESTEROL (test code = 2220) 30 MG/DL CALC LDL CHOL (test code = 2237) 80 MG/DL RISK RATIO LDL/HDL (test code = 2.67 RATIO 2238) COMPREHENSIVE METABOLIC [id number] 00:00:00 Test Item Value Reference Range Interpretation Comments GLUCOSE (test code = 2217) 236 MG/DL BUN (test code = 2208) 14 MG/DL CREATININE (test code = 2214) 0.71 MG/DL eGFR AMER. (test code 122 ML/MIN/1.73 = 58939) eGFR NON- AMER. (test 105 ML/MIN/1.73 code = 47734) CALC BUN/CREAT (test code = 20 RATIO [...] (test code = 2219) 69 U/L HEMOGLOBIN [id number] 00:00:00 Test Item Value Reference Range Interpretation Comments HEMOGLOBIN A1c (test code = 26182) 11.4 % HEMOGLOBIN [id number] 00:00:00 Test Item Value Reference Range Interpretation Comments HEMOGLOBIN A1c (test code = 21841) 11.4 % HEMOGLOBIN [id number] 00:00:00 Test Item Value Reference Range Interpretation Comments HEMOGLOBIN A1c (test code = 15180) 11.4 % LIPID [id number] 00:00:00 Test Item Value Reference Range Interpretation Comments CHOLESTEROL (test code = 2210) 162 MG/DL TRIGLYCERIDES (test code = 2232) 387 MG/DL HDL CHOLESTEROL (test code = 2220) 30 MG/DL CALC LDL CHOL (test code = 2237) 80 MG/DL RISK RATIO LDL/HDL (test code = 2.67 RATIO 2238) LIPID [id number] 00:00:00 Test Item Value Reference Range Interpretation Comments CHOLESTEROL (test code = 2210) 162 MG/DL TRIGLYCERIDES (test code = 2232) 387 MG/DL HDL CHOLESTEROL (test code = 2220) 30 MG/DL CALC LDL CHOL (test code = 2237) 80 MG/DL RISK RATIO LDL/HDL (test code = 2.67 RATIO 2238) COMPREHENSIVE METABOLIC [id number] 00:00:00 Test Item Value Reference Range Interpretation Comments GLUCOSE (test code = 2217) 236 MG/DL BUN (test code = 2208) 14 MG/DL CREATININE (test code = 2214) 0.71 MG/DL eGFR AMER. (test code 122 ML/MIN/1.73 = 13785) eGFR NON- AMER. (test 105 ML/MIN/1.73 code = 32298) CALC BUN/CREAT (test code = 20 RATIO [...] code = 2219) 69 U/L COMPREHENSIVE METABOLIC [id number] 00:00:00 Test Item Value Reference Range Interpretation Comments GLUCOSE (test code = 2217) 236 MG/DL BUN (test code = 2208) 14 MG/DL CREATININE (test code = 2214) 0.71 MG/DL eGFR AMER. (test code 122 ML/MIN/1.73 = 44290) eGFR NON- AMER. (test 105 ML/MIN/1.73 code = 36033) CALC BUN/CREAT (test code = 20 RATIO [...] (test code = 2219) 69 U/L HEMOGLOBIN [id number] 00:00:00 Test Item Value Reference Range Interpretation Comments HEMOGLOBIN A1c (test code = 85783) 11.4 % HEMOGLOBIN [id number] 00:00:00 Test Item Value Reference Range Interpretation Comments HEMOGLOBIN A1c (test code = 91000) 11.4 % HEMOGLOBIN [id number] 00:00:00 Test Item Value Reference Range Interpretation Comments HEMOGLOBIN A1c (test code = 59938) 11.4 % LIPID [id number] 00:00:00 Test Item Value Reference Range Interpretation Comments CHOLESTEROL (test code = 2210) 162 MG/DL TRIGLYCERIDES (test code = 2232) 387 MG/DL HDL CHOLESTEROL (test code = 2220) 30 MG/DL CALC LDL CHOL (test code = 2237) 80 MG/DL RISK RATIO LDL/HDL (test code = 2.67 RATIO 2238) LIPID [id number] 00:00:00 Test Item Value Reference Range Interpretation Comments CHOLESTEROL (test code = 2210) 162 MG/DL TRIGLYCERIDES (test code = 2232) 387 MG/DL HDL CHOLESTEROL (test code = 2220) 30 MG/DL CALC LDL CHOL (test code = 2237) 80 MG/DL RISK RATIO LDL/HDL (test code = 2.67 RATIO 2238) COMPREHENSIVE METABOLIC [id number] 00:00:00 Test Item Value Reference Range Interpretation Comments GLUCOSE (test code = 2217) 236 MG/DL BUN (test code = 2208) 14 MG/DL CREATININE (test code = 2214) 0.71 MG/DL eGFR AMER. (test code 122 ML/MIN/1.73 = 39395) eGFR NON- AMER. (test 105 ML/MIN/1.73 code = 27956) CALC BUN/CREAT (test code = 20 RATIO [...] code = 2219) 69 U/L COMPREHENSIVE METABOLIC [id number] 00:00:00 Test Item Value Reference Range Interpretation Comments GLUCOSE (test code = 2217) 236 MG/DL BUN (test code = 2208) 14 MG/DL CREATININE (test code = 2214) 0.71 MG/DL eGFR AMER. (test code 122 ML/MIN/1.73 = 82361) eGFR NON- AMER. (test 105 ML/MIN/1.73 code = 07098) CALC BUN/CREAT (test code = 20 RATIO [...] (test code = 2219) 69 U/L HEMOGLOBIN [id number] 00:00:00 Test Item Value Reference Range Interpretation Comments HEMOGLOBIN A1c (test code = 64164) 11.4 % HEMOGLOBIN [id number] 00:00:00 Test Item Value Reference Range Interpretation Comments HEMOGLOBIN A1c (test code = 02584) 11.4 % HEMOGLOBIN [id number] 00:00:00 Test Item Value Reference Range Interpretation Comments HEMOGLOBIN A1c (test code = 96697) 11.4 % LIPID [id number] 00:00:00 Test Item Value Reference Range Interpretation Comments CHOLESTEROL (test code = 2210) 162 MG/DL TRIGLYCERIDES (test code = 2232) 387 MG/DL HDL CHOLESTEROL (test code = 2220) 30 MG/DL CALC LDL CHOL (test code = 2237) 80 MG/DL RISK RATIO LDL/HDL (test code = 2.67 RATIO 2238) LIPID [id number] 00:00:00 Test Item Value Reference Range Interpretation Comments CHOLESTEROL (test code = 2210) 162 MG/DL TRIGLYCERIDES (test code = 2232) 387 MG/DL HDL CHOLESTEROL (test code = 2220) 30 MG/DL CALC LDL CHOL (test code = 2237) 80 MG/DL RISK RATIO LDL/HDL (test code = 2.67 RATIO 2238) COMPREHENSIVE METABOLIC [id number] 00:00:00 Test Item Value Reference Range Interpretation Comments GLUCOSE (test code = 2217) 236 MG/DL BUN (test code = 2208) 14 MG/DL CREATININE (test code = 2214) 0.71 MG/DL eGFR AMER. (test code 122 ML/MIN/1.73 = 26300) eGFR NON- AMER. (test 105 ML/MIN/1.73 code = 42278) CALC BUN/CREAT (test code = 20 RATIO [...] code = 2219) 69 U/L COMPREHENSIVE METABOLIC [id number] 00:00:00 Test Item Value Reference Range Interpretation Comments GLUCOSE (test code = 2217) 236 MG/DL BUN (test code = 2208) 14 MG/DL CREATININE (test code = 2214) 0.71 MG/DL eGFR AMER. (test code 122 ML/MIN/1.73 = 65408) eGFR NON- AMER. (test 105 ML/MIN/1.73 code = 81482) CALC BUN/CREAT (test code = 20 RATIO [...] U/L - CT UP EXTREM W/O CONT [id number] 08:37:00 [facility] 1980 Sex: F PatientName: MARGE FRANCO Unit No: [id number] EXAMS: CPT CODE: [id number] [place] EXTREM W/[place] [address] [place] SCAN LEFT WRIST WITH RECONSTRUCTION DIAGNOSIS: [...] with ACR practice standards and adherence to lamp inspector's recommendations. INDICATION: LEFT WRIST SPRAIN, POSSIBLE SCAPHOID FRACTURE COMPARISON: None. COMMENT: Findings are as described above. at 0837 Reported and signed by: America Schuler MD CC: Bebeto Quiroga MD Technologist: KAVEH WYMAN MRI CTDI: DLP: Trnscrpt: 08/11/2020 (0837) [facility] NAME: MARGE FRANCO [address] [facility] [address] PHYS: Bebeto Valiente MD : 1980 AGE: 40 SEX: F [place], [place] [address] LOC: Y.RAD PHONE #: [phone] EXAM DATE: 08/08/2020 STATUS: DEP CLI FAX #: [phone] RAD #: D/C DT PAGE 1 Signed Report Patient Name: MARGE FRANCO Unit No: [id number] EXAMS: CPT CODE: [id number] [place] UP EXTREM W/[place] [address] (Continued) Orig Print D/T: S: 08/11/2020 (0840) [facility] NAME: MARGE FRANCO [address] [facility] [address] PHYS: Bebeto Valiente MD : 1980 AGE: 40 SEX: F [place], [place] [address] LOC: JAMAR PHONE #: [phone] EXAM DATE: 08/08/2020 STATUS: DEP CLI FAX #: [phone] RAD #: D/C DT PAGE 2 Signed ReportCULTURE, [id number] 00:00:00 Test Item Value Reference Range Interpretation Comments CULTURE, URINE (test SPECIMEN NUMBER: code = 21316) [id number] CULTURE, [id number] 00:00:00 Test Item Value Reference Range Interpretation Comments CULTURE, URINE (test SPECIMEN NUMBER: code = 64206) [id number] CULTURE, [id number] 00:00:00 Test Item Value Reference Range Interpretation Comments CULTURE, URINE (test SPECIMEN NUMBER: code = 83516) [id number] CULTURE, [id number] 00:00:00 Test Item Value Reference Range Interpretation Comments CULTURE, URINE (test SPECIMEN NUMBER: code = 71592) [id number] CULTURE, [id number] 00:00:00 Test Item Value Reference Range Interpretation Comments CULTURE, URINE (test SPECIMEN NUMBER: code = 36036) [id number] CULTURE, [id number] 00:00:00 Test Item Value Reference Range Interpretation Comments CULTURE, URINE (test SPECIMEN NUMBER: code = 88890) [id number] CULTURE, [id number] 00:00:00 Test Item Value Reference Range Interpretation Comments CULTURE, URINE (test SPECIMEN NUMBER: code = 46059) [id number] CULTURE, [id number] 00:00:00 Test Item Value Reference Range Interpretation Comments CULTURE, URINE (test SPECIMEN NUMBER: code = 60519) [id number] CULTURE, [id number] 00:00:00 Test Item Value Reference Range Interpretation Comments CULTURE, URINE (test SPECIMEN NUMBER: code = 56781) [id number] CULTURE, [id number] 00:00:00 Test Item Value Reference Range Interpretation Comments CULTURE, URINE (test SPECIMEN NUMBER: code = 04067) [id number] CULTURE, [id number] 00:00:00 Test Item Value Reference Range Interpretation Comments CULTURE, URINE (test SPECIMEN NUMBER: code = 19038) [id number] CULTURE, [id number] 00:00:00 Test Item Value Reference Range Interpretation Comments CULTURE, URINE (test SPECIMEN NUMBER: code = 04775) [id number] CULTURE, [id number] 00:00:00 Test Item Value Reference Range Interpretation Comments CULTURE, URINE (test SPECIMEN NUMBER: code = 69010) [id number] CULTURE, [id number] 00:00:00 Test Item Value Reference Range Interpretation Comments CULTURE, URINE (test SPECIMEN NUMBER: code = 42578) [id number] CULTURE, [id number] 00:00:00 Test Item Value Reference Range Interpretation Comments CULTURE, URINE (test SPECIMEN NUMBER: code = 30633) [id number] CULTURE, [id number] 00:00:00 Test Item Value Reference Range Interpretation Comments CULTURE, URINE (test SPECIMEN NUMBER: code = 44496) [id number] CULTURE, [id number] 00:00:00 Test Item Value Reference Range Interpretation Comments CULTURE, URINE (test SPECIMEN NUMBER: code = 50066) [id number] CULTURE, [id number] 00:00:00 Test Item Value Reference Range Interpretation Comments CULTURE, URINE (test SPECIMEN NUMBER: code = 21331) [id number] CULTURE, [id number] 00:00:00 Test Item Value Reference Range Interpretation Comments CULTURE, URINE (test SPECIMEN NUMBER: code = 49700) [id number] CULTURE, [id number] 00:00:00 Test Item Value Reference Range Interpretation Comments CULTURE, URINE (test SPECIMEN NUMBER: code = 03512) [id number] CULTURE, [id number] 00:00:00 Test Item Value Reference Range Interpretation Comments CULTURE, URINE (test SPECIMEN NUMBER: code = 63344) [id number] VAGINAL PATHOGENS DNA [id number] 00:00:00 Test Item Value Reference Range Interpretation Comments ANDIE SPECIES (test code = 12809) NEGATIVE G. VAGINALIS (test code = ) NEGATIVE T. VAGINALIS (test code = ) NEGATIVE VAGINAL PATHOGENS DNA [id number] 00:00:00 Test Item Value Reference Range Interpretation Comments ANDIE SPECIES (test code = 60959) NEGATIVE G. VAGINALIS (test code = 48459) NEGATIVE T. VAGINALIS (test code = 42458) NEGATIVE VAGINAL PATHOGENS DNA [id number] 00:00:00 Test Item Value Reference Range Interpretation Comments ANDIE SPECIES (test code = 67960) NEGATIVE G. VAGINALIS (test code = 91183) NEGATIVE T. VAGINALIS (test code = 94442) NEGATIVE VAGINAL PATHOGENS DNA [id number] 00:00:00 Test Item Value Reference Range Interpretation Comments ANDIE SPECIES (test code = 33195) NEGATIVE G. VAGINALIS (test code = 70953) NEGATIVE T. VAGINALIS (test code = 53502) NEGATIVE VAGINAL PATHOGENS DNA [id number] 00:00:00 Test Item Value Reference Range Interpretation Comments ANDIE SPECIES (test code = 91181) NEGATIVE G. VAGINALIS (test code = 04194) NEGATIVE T. VAGINALIS (test code = 97015) NEGATIVE VAGINAL PATHOGENS DNA [id number] 00:00:00 Test Item Value Reference Range Interpretation Comments ANDIE SPECIES (test code = 55980) NEGATIVE G. VAGINALIS (test code = 99766) NEGATIVE T. VAGINALIS (test code = 18053) NEGATIVE VAGINAL PATHOGENS DNA [id number] 00:00:00 Test Item Value Reference Range Interpretation Comments ANDIE SPECIES (test code = 31838) NEGATIVE G. VAGINALIS (test code = 35177) NEGATIVE T. VAGINALIS (test code = 57885) NEGATIVE VAGINAL PATHOGENS DNA [id number] 00:00:00 Test Item Value Reference Range Interpretation Comments ANDIE SPECIES (test code = 18986) NEGATIVE G. VAGINALIS (test code = 24193) NEGATIVE T. VAGINALIS (test code = 73982) NEGATIVE VAGINAL PATHOGENS DNA [id number] 00:00:00 Test Item Value Reference Range Interpretation Comments ANDIE SPECIES (test code = 88518) NEGATIVE G. VAGINALIS (test code = 18898) NEGATIVE T. VAGINALIS (test code = 95468) NEGATIVE VAGINAL PATHOGENS DNA [id number] 00:00:00 Test Item Value Reference Range Interpretation Comments ANDIE SPECIES (test code = 79760) NEGATIVE G. VAGINALIS (test code = 02846) NEGATIVE T. VAGINALIS (test code = 58902) NEGATIVE VAGINAL PATHOGENS DNA [id number] 00:00:00 Test Item Value Reference Range Interpretation Comments ANDIE SPECIES (test code = 50252) NEGATIVE G. VAGINALIS (test code = 31161) NEGATIVE T. VAGINALIS (test code = 07828) NEGATIVE VAGINAL PATHOGENS DNA [id number] 00:00:00 Test Item Value Reference Range Interpretation Comments ANDIE SPECIES (test code = 84373) NEGATIVE G. VAGINALIS (test code = 20501) NEGATIVE T. VAGINALIS (test code = 88068) NEGATIVE VAGINAL PATHOGENS DNA [id number] 00:00:00 Test Item Value Reference Range Interpretation Comments ANDIE SPECIES (test code = 96278) NEGATIVE G. VAGINALIS (test code = 87427) NEGATIVE T. VAGINALIS (test code = 91228) NEGATIVE VAGINAL PATHOGENS DNA [id number] 00:00:00 Test Item Value Reference Range Interpretation Comments ANDIE SPECIES (test code = 68432) NEGATIVE G. VAGINALIS (test code = 21608) NEGATIVE T. VAGINALIS (test code = 15574) NEGATIVE VAGINAL PATHOGENS DNA [id number] 00:00:00 Test Item Value Reference Range Interpretation Comments ANDIE SPECIES (test code = 99114) NEGATIVE G. VAGINALIS (test code = 71177) NEGATIVE T. VAGINALIS (test code = 78677) NEGATIVE VAGINAL PATHOGENS DNA [id number] 00:00:00 Test Item Value Reference Range Interpretation Comments ANDIE SPECIES (test code = 28511) NEGATIVE G. VAGINALIS (test code = 44045) NEGATIVE T. VAGINALIS (test code = 57216) NEGATIVE VAGINAL PATHOGENS DNA [id number] 00:00:00 Test Item Value Reference Range Interpretation Comments ANDIE SPECIES (test code = 75513) NEGATIVE G. VAGINALIS (test code = 47504) NEGATIVE T. VAGINALIS (test code = 00944) NEGATIVE VAGINAL PATHOGENS DNA [id number] 00:00:00 Test Item Value Reference Range Interpretation Comments ANDIE SPECIES (test code = 13214) NEGATIVE G. VAGINALIS (test code = 88635) NEGATIVE T. VAGINALIS (test code = 78777) NEGATIVE VAGINAL PATHOGENS DNA [id number] 00:00:00 Test Item Value Reference Range Interpretation Comments ANDIE SPECIES (test code = 04987) NEGATIVE G. VAGINALIS (test code = 12708) NEGATIVE T. VAGINALIS (test code = 90261) NEGATIVE VAGINAL PATHOGENS DNA [id number] 00:00:00 Test Item Value Reference Range Interpretation Comments ANDIE SPECIES (test code = ) NEGATIVE G. VAGINALIS (test code = ) NEGATIVE T. VAGINALIS (test code = ) NEGATIVE VAGINAL PATHOGENS DNA [id number] 00:00:00 Test Item Value Reference Range Interpretation Comments ANDIE SPECIES (test code = ) NEGATIVE G. VAGINALIS (test code = 70673) NEGATIVE T. VAGINALIS (test code = ) NEGATIVE - XR FOREARM 2 VIEWS [id number] 09:10:00 [facility] 1980 Sex: F PatientName: MARGE FRANCO Unit No: [id number] EXAMS: CPT CODE: [id number] XR FORE[place] [address] [place] [address] Leftforearm and wrist 4 views COMMENT: There is no evidence for fracture or subluxation. No focal bony lesions are seen. at 0910 Reported and signed by: Prasad Marina MD CC: Rafy Ferguson MD Technologist: Marie Johnson(R) Transcribed D/ (0910) [facility] NAME: MARGE FRANCO [address] PHYS: HAMST.Rell - Rafy Ferguson : 1980 AGE: 40 SEX: F [place], [place] [address] LOC: TEOFILO PHONE #: [phone] EXAM DATE: 08/02/2020 STATUS: DEP ER FAX #: [phone] RAD #: D/C DT PAGE 1 Signed Report Patient Name: MARGE FRANCO Unit No: [id number] EXAMS: CPT CODE: [id number] XR FORE[place] [address] [place] [address] (Continued) Orig Print D/T: S: 08/04/2020 (0914) [facility] NAME: MARGE FRANCO [address] [facility] PHYS: NAYLA - Rafy Ferguson : 1980 AGE: 40 SEX: F [place], [place] [address] LOC: TEOFILO PHONE #: [phone] EXAM DATE: 08/02/2020 STATUS: DEP ER FAX #: [phone] RAD #: D/C DT PAGE 2 Signed ReportCULTURE, [id number] 00:00:00 Test Item Value Reference Range Interpretation Comments CULTURE, URINE (test SPECIMEN NUMBER: code = 43080) [id number] CULTURE, [id number] 00:00:00 Test Item Value Reference Range Interpretation Comments CULTURE, URINE (test SPECIMEN NUMBER: code = 87666) [id number] CULTURE, [id number] 00:00:00 Test Item Value Reference Range Interpretation Comments CULTURE, URINE (test SPECIMEN NUMBER: code = 06910) [id number] CULTURE, [id number] 00:00:00 Test Item Value Reference Range Interpretation Comments CULTURE, URINE (test SPECIMEN NUMBER: code = 34305) [id number] CULTURE, [id number] 00:00:00 Test Item Value Reference Range Interpretation Comments CULTURE, URINE (test SPECIMEN NUMBER: code = 49871) [id number] CULTURE, [id number] 00:00:00 Test Item Value Reference Range Interpretation Comments CULTURE, URINE (test SPECIMEN NUMBER: code = 58854) [id number] CULTURE, [id number] 00:00:00 Test Item Value Reference Range Interpretation Comments CULTURE, URINE (test SPECIMEN NUMBER: code = 54062) [id number] CULTURE, [id number] 00:00:00 Test Item Value Reference Range Interpretation Comments CULTURE, URINE (test SPECIMEN NUMBER: code = 19746) [id number] CULTURE, [id number] 00:00:00 Test Item Value Reference Range Interpretation Comments CULTURE, URINE (test SPECIMEN NUMBER: code = 73202) [id number] CULTURE, [id number] 00:00:00 Test Item Value Reference Range Interpretation Comments CULTURE, URINE (test SPECIMEN NUMBER: code = 97431) [id number] CULTURE, [id number] 00:00:00 Test Item Value Reference Range Interpretation Comments CULTURE, URINE (test SPECIMEN NUMBER: code = 40218) [id number] CULTURE, [id number] 00:00:00 Test Item Value Reference Range Interpretation Comments CULTURE, URINE (test SPECIMEN NUMBER: code = 38703) [id number] CULTURE, [id number] 00:00:00 Test Item Value Reference Range Interpretation Comments CULTURE, URINE (test SPECIMEN NUMBER: code = 40141) [id number] CULTURE, [id number] 00:00:00 Test Item Value Reference Range Interpretation Comments CULTURE, URINE (test SPECIMEN NUMBER: code = 95228) [id number] CULTURE, [id number] 00:00:00 Test Item Value Reference Range Interpretation Comments CULTURE, URINE (test SPECIMEN NUMBER: code = 91303) [id number] CULTURE, [id number] 00:00:00 Test Item Value Reference Range Interpretation Comments CULTURE, URINE (test SPECIMEN NUMBER: code = 79070) [id number] CULTURE, [id number] 00:00:00 Test Item Value Reference Range Interpretation Comments CULTURE, URINE (test SPECIMEN NUMBER: code = 40920) [id number] CULTURE, [id number] 00:00:00 Test Item Value Reference Range Interpretation Comments CULTURE, URINE (test SPECIMEN NUMBER: code = 65820) [id number] CULTURE, [id number] 00:00:00 Test Item Value Reference Range Interpretation Comments CULTURE, URINE (test SPECIMEN NUMBER: code = 75283) [id number] CULTURE, [id number] 00:00:00 Test Item Value Reference Range Interpretation Comments CULTURE, URINE (test SPECIMEN NUMBER: code = 80006) [id number] CULTURE, [id number] 00:00:00 Test Item Value Reference Range Interpretation Comments CULTURE, URINE (test SPECIMEN NUMBER: code = 45852) [id number] SARS-CoV-2 (COVID-19) by RT-PCR (HIGH RISK)2020-04-23 00:00:00 Test Item Value Reference Range Interpretation Comments SARS-CoV-2 INTERPRETATION Negative (test code = 22789) SOURCE (test code = 49061) Nasal_Swab_in_VTM__ UTM SARS-CoV-2 (COVID-19) by RT-PCR (HIGH RISK)2020-04-23 00:00:00 Test Item Value Reference Range Interpretation Comments SARS-CoV-2 INTERPRETATION Negative (test code = 60847) SOURCE (test code = 89804) Nasal_Swab_in_VTM__ UTM SARS-CoV-2 (COVID-19) by RT-PCR (HIGH RISK)2020-04-23 00:00:00 Test Item Value Reference Range Interpretation Comments SARS-CoV-2 INTERPRETATION Negative (test code = 89546) SOURCE (test code = 63717) Nasal_Swab_in_VTM__ UTM SARS-CoV-2 (COVID-19) by RT-PCR (HIGH RISK)2020-04-23 00:00:00 Test Item Value Reference Range Interpretation Comments SARS-CoV-2 INTERPRETATION Negative (test code = 13814) SOURCE (test code = 37944) Nasal_Swab_in_VTM__ UTM SARS-CoV-2 (COVID-19) by RT-PCR (HIGH RISK)2020-04-23 00:00:00 Test Item Value Reference Range Interpretation Comments SARS-CoV-2 INTERPRETATION Negative (test code = 72612) SOURCE (test code = 05313) Nasal_Swab_in_VTM__ UTM SARS-CoV-2 (COVID-19) by RT-PCR (HIGH RISK)2020-04-23 00:00:00 Test Item Value Reference Range Interpretation Comments SARS-CoV-2 INTERPRETATION Negative (test code = 53641) SOURCE (test code = 79484) Nasal_Swab_in_VTM__ UTM SARS-CoV-2 (COVID-19) by RT-PCR (HIGH RISK)2020-04-23 00:00:00 Test Item Value Reference Range Interpretation Comments SARS-CoV-2 INTERPRETATION Negative (test code = 80148) SOURCE (test code = 74755) Nasal_Swab_in_VTM__ UTM SARS-CoV-2 (COVID-19) by RT-PCR (HIGH RISK)2020-04-23 00:00:00 Test Item Value Reference Range Interpretation Comments SARS-CoV-2 INTERPRETATION Negative (test code = 88377) SOURCE (test code = 26852) Nasal_Swab_in_VTM__ UTM SARS-CoV-2 (COVID-19) by RT-PCR (HIGH RISK)2020-04-23 00:00:00 Test Item Value Reference Range Interpretation Comments SARS-CoV-2 INTERPRETATION Negative (test code = 16894) SOURCE (test code = 95742) Nasal_Swab_in_VTM__ UTM SARS-CoV-2 (COVID-19) by RT-PCR (HIGH RISK)2020-04-23 00:00:00 Test Item Value Reference Range Interpretation Comments SARS-CoV-2 INTERPRETATION Negative (test code = 68174) SOURCE (test code = 13872) Nasal_Swab_in_VTM__ UTM SARS-CoV-2 (COVID-19) by RT-PCR (HIGH RISK)2020-04-23 00:00:00 Test Item Value Reference Range Interpretation Comments SARS-CoV-2 INTERPRETATION Negative (test code = 68524) SOURCE (test code = 45945) Nasal_Swab_in_VTM__ UTM COMPREHENSIVE METABOLIC [id number] 00:00:00 Test Item Value Reference Range Interpretation Comments GLUCOSE (test code = 2217) 217 MG/DL BUN (test code = 2208) 13 MG/DL CREATININE (test code = 2214) 0.64 MG/DL eGFR AMER. (test code 128 ML/MIN/1.73 = 89656) eGFR NON- AMER. (test 110 ML/MIN/1.73 code = 14489) CALC BUN/CREAT (test code = 20 RATIO [...] (test code = 2219) 47 U/L CULTURE, [id number] 00:00:00 Test Item Value Reference Range Interpretation Comments CULTURE, URINE (test SPECIMEN NUMBER: code = 19644) [id number] COMPREHENSIVE METABOLIC [id number] 00:00:00 Test Item Value Reference Range Interpretation Comments GLUCOSE (test code = 2217) 217 MG/DL BUN (test code = 2208) 13 MG/DL CREATININE (test code = 2214) 0.64 MG/DL eGFR AMER. (test code 128 ML/MIN/1.73 = 41835) eGFR NON- AMER. (test 110 ML/MIN/1.73 code = 79490) CALC BUN/CREAT (test code = 20 RATIO [...] (test code = 2219) 47 U/L CULTURE, [id number] 00:00:00 Test Item Value Reference Range Interpretation Comments CULTURE, URINE (test SPECIMEN NUMBER: code = 92927) [id number] LIPID [id number] 00:00:00 Test Item Value Reference Range Interpretation Comments CHOLESTEROL (test code = 2210) 220 MG/DL TRIGLYCERIDES (test code = 2232) 873 MG/DL HDL CHOLESTEROL (test code = 30 MG/DL 2220) CALC LDL CHOL (test code = 2237) (NOTE) MG/DL RISK RATIO LDL/HDL (test code = (NOTE) RATIO 2238) LIPID [id number] 00:00:00 Test Item Value Reference Range Interpretation Comments CHOLESTEROL (test code = 2210) 220 MG/DL TRIGLYCERIDES (test code = 2232) 873 MG/DL HDL CHOLESTEROL (test code = 30 MG/DL 2220) CALC LDL CHOL (test code = 2237) (NOTE) MG/DL RISK RATIO LDL/HDL (test code = (NOTE) RATIO 2238) HEMOGLOBIN [id number] 00:00:00 Test Item Value Reference Range Interpretation Comments HEMOGLOBIN A1c (test code = 09843) 10.9 % HEMOGLOBIN [id number] 00:00:00 Test Item Value Reference Range Interpretation Comments HEMOGLOBIN A1c (test code = 15659) 10.9 % HEMOGLOBIN [id number] 00:00:00 Test Item Value Reference Range Interpretation Comments HEMOGLOBIN A1c (test code = 30471) 10.9 % COMPREHENSIVE METABOLIC [id number] 00:00:00 Test Item Value Reference Range Interpretation Comments GLUCOSE (test code = 2217) 217 MG/DL BUN (test code = 2208) 13 MG/DL CREATININE (test code = 2214) 0.64 MG/DL eGFR AMER. (test code 128 ML/MIN/1.73 = 26862) eGFR NON- AMER. (test 110 ML/MIN/1.73 code = 77009) CALC BUN/CREAT (test code = 20 RATIO [...] code = 2219) 47 U/L COMPREHENSIVE METABOLIC [id number] 00:00:00 Test Item Value Reference Range Interpretation Comments GLUCOSE (test code = 2217) 217 MG/DL BUN (test code = 2208) 13 MG/DL CREATININE (test code = 2214) 0.64 MG/DL eGFR AMER. (test code 128 ML/MIN/1.73 = 24976) eGFR NON- AMER. (test 110 ML/MIN/1.73 code = 06360) CALC BUN/CREAT (test code = 20 RATIO [...] (test code = 2219) 47 U/L CULTURE, [id number] 00:00:00 Test Item Value Reference Range Interpretation Comments CULTURE, URINE (test SPECIMEN NUMBER: code = 50327) [id number] CULTURE, [id number] 00:00:00 Test Item Value Reference Range Interpretation Comments CULTURE, URINE (test SPECIMEN NUMBER: code = 97439) [id number] LIPID [id number] 00:00:00 Test Item Value Reference Range Interpretation Comments CHOLESTEROL (test code = 2210) 220 MG/DL TRIGLYCERIDES (test code = 2232) 873 MG/DL HDL CHOLESTEROL (test code = 30 MG/DL 2220) CALC LDL CHOL (test code = 2237) (NOTE) MG/DL RISK RATIO LDL/HDL (test code = (NOTE) RATIO 2238) LIPID [id number] 00:00:00 Test Item Value Reference Range Interpretation Comments CHOLESTEROL (test code = 2210) 220 MG/DL TRIGLYCERIDES (test code = 2232) 873 MG/DL HDL CHOLESTEROL (test code = 30 MG/DL 2219) CALC LDL CHOL (test code = 2237) (NOTE) MG/DL RISK RATIO LDL/HDL (test code = (NOTE) RATIO 2238) HEMOGLOBIN [id number] 00:00:00 Test Item Value Reference Range Interpretation Comments HEMOGLOBIN A1c (test code = 46321) 10.9 % HEMOGLOBIN [id number] 00:00:00 Test Item Value Reference Range Interpretation Comments HEMOGLOBIN A1c (test code = 28456) 10.9 % HEMOGLOBIN [id number] 00:00:00 Test Item Value Reference Range Interpretation Comments HEMOGLOBIN A1c (test code = 33225) 10.9 % CULTURE, [id number] 00:00:00 Test Item Value Reference Range Interpretation Comments CULTURE, URINE (test SPECIMEN NUMBER: code = 46883) [id number] CULTURE, [id number] 00:00:00 Test Item Value Reference Range Interpretation Comments CULTURE, URINE (test SPECIMEN NUMBER: code = 37696) [id number] COMPREHENSIVE METABOLIC [id number] 00:00:00 Test Item Value Reference Range Interpretation Comments GLUCOSE (test code = 2217) 217 MG/DL BUN (test code = 2208) 13 MG/DL CREATININE (test code = 2214) 0.64 MG/DL eGFR AMER. (test code 128 ML/MIN/1.73 = 49294) eGFR NON- AMER. (test 110 ML/MIN/1.73 code = 82908) CALC BUN/CREAT (test code = 20 RATIO [...] code = 2219) 47 U/L COMPREHENSIVE METABOLIC [id number] 00:00:00 Test Item Value Reference Range Interpretation Comments GLUCOSE (test code = 2217) 217 MG/DL BUN (test code = 2208) 13 MG/DL CREATININE (test code = 2214) 0.64 MG/DL eGFR AMER. (test code 128 ML/MIN/1.73 = 43990) eGFR NON- AMER. (test 110 ML/MIN/1.73 code = 93952) CALC BUN/CREAT (test code = 20 RATIO [...] (test code = 2219) 47 U/L LIPID [id number] 00:00:00 Test Item Value Reference Range Interpretation Comments CHOLESTEROL (test code = 2210) 220 MG/DL TRIGLYCERIDES (test code = 2232) 873 MG/DL HDL CHOLESTEROL (test code = 30 MG/DL 2220) CALC LDL CHOL (test code = 2237) (NOTE) MG/DL RISK RATIO LDL/HDL (test code = (NOTE) RATIO 2238) LIPID [id number] 00:00:00 Test Item Value Reference Range Interpretation Comments CHOLESTEROL (test code = 2210) 220 MG/DL TRIGLYCERIDES (test code = 2232) 873 MG/DL HDL CHOLESTEROL (test code = 30 MG/DL 2220) CALC LDL CHOL (test code = 2237) (NOTE) MG/DL RISK RATIO LDL/HDL (test code = (NOTE) RATIO 2238) HEMOGLOBIN [id number] 00:00:00 Test Item Value Reference Range Interpretation Comments HEMOGLOBIN A1c (test code = 13776) 10.9 % HEMOGLOBIN [id number] 00:00:00 Test Item Value Reference Range Interpretation Comments HEMOGLOBIN A1c (test code = 52785) 10.9 % HEMOGLOBIN [id number] 00:00:00 Test Item Value Reference Range Interpretation Comments HEMOGLOBIN A1c (test code = 05704) 10.9 % CULTURE, [id number] 00:00:00 Test Item Value Reference Range Interpretation Comments CULTURE, URINE (test SPECIMEN NUMBER: code = 84972) [id number] COMPREHENSIVE METABOLIC [id number] 00:00:00 Test Item Value Reference Range Interpretation Comments GLUCOSE (test code = 2217) 217 MG/DL BUN (test code = 2208) 13 MG/DL CREATININE (test code = 2214) 0.64 MG/DL eGFR AMER. (test code 128 ML/MIN/1.73 = 17390) eGFR NON- AMER. (test 110 ML/MIN/1.73 code = 90460) CALC BUN/CREAT (test code = 20 RATIO [...] code = 2219) 47 U/L COMPREHENSIVE METABOLIC [id number] 00:00:00 Test Item Value Reference Range Interpretation Comments GLUCOSE (test code = 2217) 217 MG/DL BUN (test code = 2208) 13 MG/DL CREATININE (test code = 2214) 0.64 MG/DL eGFR AMER. (test code 128 ML/MIN/1.73 = 88513) eGFR NON- AMER. (test 110 ML/MIN/1.73 code = 01986) CALC BUN/CREAT (test code = 20 RATIO [...] (test code = 2219) 47 U/L CULTURE, [id number] 00:00:00 Test Item Value Reference Range Interpretation Comments CULTURE, URINE (test SPECIMEN NUMBER: code = 03317) [id number] LIPID [id number] 00:00:00 Test Item Value Reference Range Interpretation Comments CHOLESTEROL (test code = 2210) 220 MG/DL TRIGLYCERIDES (test code = 2232) 873 MG/DL HDL CHOLESTEROL (test code = 30 MG/DL 0) CALC LDL CHOL (test code = 2237) (NOTE) MG/DL RISK RATIO LDL/HDL (test code = (NOTE) RATIO 2238) LIPID [id number] 00:00:00 Test Item Value Reference Range Interpretation Comments CHOLESTEROL (test code = 2210) 220 MG/DL TRIGLYCERIDES (test code = 2232) 873 MG/DL HDL CHOLESTEROL (test code = 30 MG/DL 2220) CALC LDL CHOL (test code = 2237) (NOTE) MG/DL RISK RATIO LDL/HDL (test code = (NOTE) RATIO 2238) HEMOGLOBIN [id number] 00:00:00 Test Item Value Reference Range Interpretation Comments HEMOGLOBIN A1c (test code = 63461) 10.9 % HEMOGLOBIN [id number] 00:00:00 Test Item Value Reference Range Interpretation Comments HEMOGLOBIN A1c (test code = 96881) 10.9 % HEMOGLOBIN [id number] 00:00:00 Test Item Value Reference Range Interpretation Comments HEMOGLOBIN A1c (test code = 75115) 10.9 % COMPREHENSIVE METABOLIC [id number] 00:00:00 Test Item Value Reference Range Interpretation Comments GLUCOSE (test code = 2217) 217 MG/DL BUN (test code = 2208) 13 MG/DL CREATININE (test code = 2214) 0.64 MG/DL eGFR AMER. (test code 128 ML/MIN/1.73 = 08750) eGFR NON- AMER. (test 110 ML/MIN/1.73 code = 25801) CALC BUN/CREAT (test code = 20 RATIO [...] (test code = 2219) 47 U/L CULTURE, [id number] 00:00:00 Test Item Value Reference Range Interpretation Comments CULTURE, URINE (test SPECIMEN NUMBER: code = 64614) [id number] CULTURE, [id number] 00:00:00 Test Item Value Reference Range Interpretation Comments CULTURE, URINE (test SPECIMEN NUMBER: code = 93873) [id number] COMPREHENSIVE METABOLIC [id number] 00:00:00 Test Item Value Reference Range Interpretation Comments GLUCOSE (test code = 2217) 217 MG/DL BUN (test code = 2208) 13 MG/DL CREATININE (test code = 2214) 0.64 MG/DL eGFR AMER. (test code 128 ML/MIN/1.73 = 92477) eGFR NON- AMER. (test 110 ML/MIN/1.73 code = 90453) CALC BUN/CREAT (test code = 20 RATIO [...] (test code = 2219) 47 U/L LIPID [id number] 00:00:00 Test Item Value Reference Range Interpretation Comments CHOLESTEROL (test code = 2210) 220 MG/DL TRIGLYCERIDES (test code = 2232) 873 MG/DL HDL CHOLESTEROL (test code = 30 MG/DL 2220) CALC LDL CHOL (test code = 2237) (NOTE) MG/DL RISK RATIO LDL/HDL (test code = (NOTE) RATIO 2238) LIPID [id number] 00:00:00 Test Item Value Reference Range Interpretation Comments CHOLESTEROL (test code = 2210) 220 MG/DL TRIGLYCERIDES (test code = 2232) 873 MG/DL HDL CHOLESTEROL (test code = 30 MG/DL 2220) CALC LDL CHOL (test code = 2237) (NOTE) MG/DL RISK RATIO LDL/HDL (test code = (NOTE) RATIO 2238) HEMOGLOBIN [id number] 00:00:00 Test Item Value Reference Range Interpretation Comments HEMOGLOBIN A1c (test code = 70653) 10.9 % HEMOGLOBIN [id number] 00:00:00 Test Item Value Reference Range Interpretation Comments HEMOGLOBIN A1c (test code = 36624) 10.9 % HEMOGLOBIN [id number] 00:00:00 Test Item Value Reference Range Interpretation Comments HEMOGLOBIN A1c (test code = 93948) 10.9 % COMPREHENSIVE METABOLIC [id number] 00:00:00 Test Item Value Reference Range Interpretation Comments GLUCOSE (test code = 2217) 217 MG/DL BUN (test code = 2208) 13 MG/DL CREATININE (test code = 2214) 0.64 MG/DL eGFR AMER. (test code 128 ML/MIN/1.73 = 47442) eGFR NON- AMER. (test 110 ML/MIN/1.73 code = 33133) CALC BUN/CREAT (test code = 20 RATIO [...] (test code = 2219) 47 U/L CULTURE, [id number] 00:00:00 Test Item Value Reference Range Interpretation Comments CULTURE, URINE (test SPECIMEN NUMBER: code = 31724) [id number] CULTURE, [id number] 00:00:00 Test Item Value Reference Range Interpretation Comments CULTURE, URINE (test SPECIMEN NUMBER: code = 05623) [id number] COMPREHENSIVE METABOLIC [id number] 00:00:00 Test Item Value Reference Range Interpretation Comments GLUCOSE (test code = 2217) 217 MG/DL BUN (test code = 2208) 13 MG/DL CREATININE (test code = 2214) 0.64 MG/DL eGFR AMER. (test code 128 ML/MIN/1.73 = 29720) eGFR NON- AMER. (test 110 ML/MIN/1.73 code = 13575) CALC BUN/CREAT (test code = 20 RATIO [...] (test code = 2219) 47 U/L LIPID [id number] 00:00:00 Test Item Value Reference Range Interpretation Comments CHOLESTEROL (test code = 2210) 220 MG/DL TRIGLYCERIDES (test code = 2232) 873 MG/DL HDL CHOLESTEROL (test code = 30 MG/DL 2220) CALC LDL CHOL (test code = 2237) (NOTE) MG/DL RISK RATIO LDL/HDL (test code = (NOTE) RATIO 2238) LIPID [id number] 00:00:00 Test Item Value Reference Range Interpretation Comments CHOLESTEROL (test code = 2210) 220 MG/DL TRIGLYCERIDES (test code = 2232) 873 MG/DL HDL CHOLESTEROL (test code = 30 MG/DL 2220) CALC LDL CHOL (test code = 2237) (NOTE) MG/DL RISK RATIO LDL/HDL (test code = (NOTE) RATIO 2238) HEMOGLOBIN [id number] 00:00:00 Test Item Value Reference Range Interpretation Comments HEMOGLOBIN A1c (test code = 03327) 10.9 % HEMOGLOBIN [id number] 00:00:00 Test Item Value Reference Range Interpretation Comments HEMOGLOBIN A1c (test code = 39390) 10.9 % HEMOGLOBIN [id number] 00:00:00 Test Item Value Reference Range Interpretation Comments HEMOGLOBIN A1c (test code = 71801) 10.9 % COMPREHENSIVE METABOLIC [id number] 00:00:00 Test Item Value Reference Range Interpretation Comments GLUCOSE (test code = 2217) 217 MG/DL BUN (test code = 2208) 13 MG/DL CREATININE (test code = 2214) 0.64 MG/DL eGFR AMER. (test code 128 ML/MIN/1.73 = 27473) eGFR NON- AMER. (test 110 ML/MIN/1.73 code = 76855) CALC BUN/CREAT (test code = 20 RATIO [...] code = 2219) 47 U/L COMPREHENSIVE METABOLIC [id number] 00:00:00 Test Item Value Reference Range Interpretation Comments GLUCOSE (test code = 2217) 217 MG/DL BUN (test code = 2208) 13 MG/DL CREATININE (test code = 2214) 0.64 MG/DL eGFR AMER. (test code 128 ML/MIN/1.73 = 46763) eGFR NON- AMER. (test 110 ML/MIN/1.73 code = 24357) CALC BUN/CREAT (test code = 20 RATIO [...] (test code = 2219) 47 U/L CULTURE, [id number] 00:00:00 Test Item Value Reference Range Interpretation Comments CULTURE, URINE (test SPECIMEN NUMBER: code = 82583) [id number] COMPREHENSIVE METABOLIC [id number] 00:00:00 Test Item Value Reference Range Interpretation Comments GLUCOSE (test code = 2217) 217 MG/DL BUN (test code = 2208) 13 MG/DL CREATININE (test code = 2214) 0.64 MG/DL eGFR AMER. (test code 128 ML/MIN/1.73 = 17862) eGFR NON- AMER. (test 110 ML/MIN/1.73 code = 83841) CALC BUN/CREAT (test code = 20 RATIO [...] (test code = 2219) 47 U/L CULTURE, [id number] 00:00:00 Test Item Value Reference Range Interpretation Comments CULTURE, URINE (test SPECIMEN NUMBER: code = 22884) [id number] LIPID [id number] 00:00:00 Test Item Value Reference Range Interpretation Comments CHOLESTEROL (test code = 2210) 220 MG/DL TRIGLYCERIDES (test code = 2232) 873 MG/DL HDL CHOLESTEROL (test code = 30 MG/DL 2220) CALC LDL CHOL (test code = 2237) (NOTE) MG/DL RISK RATIO LDL/HDL (test code = (NOTE) RATIO 2238) LIPID [id number] 00:00:00 Test Item Value Reference Range Interpretation Comments CHOLESTEROL (test code = 2210) 220 MG/DL TRIGLYCERIDES (test code = 2232) 873 MG/DL HDL CHOLESTEROL (test code = 30 MG/DL 2220) CALC LDL CHOL (test code = 2237) (NOTE) MG/DL RISK RATIO LDL/HDL (test code = (NOTE) RATIO 2238) HEMOGLOBIN [id number] 00:00:00 Test Item Value Reference Range Interpretation Comments HEMOGLOBIN A1c (test code = 81390) 10.9 % HEMOGLOBIN [id number] 00:00:00 Test Item Value Reference Range Interpretation Comments HEMOGLOBIN A1c (test code = 91665) 10.9 % HEMOGLOBIN [id number] 00:00:00 Test Item Value Reference Range Interpretation Comments HEMOGLOBIN A1c (test code = 10207) 10.9 % CULTURE, [id number] 00:00:00 Test Item Value Reference Range Interpretation Comments CULTURE, URINE (test SPECIMEN NUMBER: code = 44612) [id number] LIPID [id number] 00:00:00 Test Item Value Reference Range Interpretation Comments CHOLESTEROL (test code = 2210) 220 MG/DL TRIGLYCERIDES (test code = 2232) 873 MG/DL HDL CHOLESTEROL (test code = 30 MG/DL 2220) CALC LDL CHOL (test code = 2237) (NOTE) MG/DL RISK RATIO LDL/HDL (test code = (NOTE) RATIO 2238) HEMOGLOBIN [id number] 00:00:00 Test Item Value Reference Range Interpretation Comments HEMOGLOBIN A1c (test code = 07646) 10.9 % HEMOGLOBIN [id number] 00:00:00 Test Item Value Reference Range Interpretation Comments HEMOGLOBIN A1c (test code = 23345) 10.9 % CULTURE, [id number] 00:00:00 Test Item Value Reference Range Interpretation Comments CULTURE, URINE (test SPECIMEN NUMBER: code = 86368) [id number] COMPREHENSIVE METABOLIC [id number] 00:00:00 Test Item Value Reference Range Interpretation Comments GLUCOSE (test code = 2217) 217 MG/DL BUN (test code = 2208) 13 MG/DL CREATININE (test code = 2214) 0.64 MG/DL eGFR AMER. (test code 128 ML/MIN/1.73 = 83379) eGFR NON- AMER. (test 110 ML/MIN/1.73 code = 65525) CALC BUN/CREAT (test code = 20 RATIO [...] (test code = 2219) 47 U/L CULTURE, [id number] 00:00:00 Test Item Value Reference Range Interpretation Comments CULTURE, URINE (test SPECIMEN NUMBER: code = 72313) [id number] COMPREHENSIVE METABOLIC [id number] 00:00:00 Test Item Value Reference Range Interpretation Comments GLUCOSE (test code = 2217) 217 MG/DL BUN (test code = 2208) 13 MG/DL CREATININE (test code = 2214) 0.64 MG/DL eGFR AMER. (test code 128 ML/MIN/1.73 = 63487) eGFR NON- AMER. (test 110 ML/MIN/1.73 code = 69457) CALC BUN/CREAT (test code = 20 RATIO [...] (test code = 2219) 47 U/L LIPID [id number] 00:00:00 Test Item Value Reference Range Interpretation Comments CHOLESTEROL (test code = 2210) 220 MG/DL TRIGLYCERIDES (test code = 2232) 873 MG/DL HDL CHOLESTEROL (test code = 30 MG/DL 2220) CALC LDL CHOL (test code = 2237) (NOTE) MG/DL RISK RATIO LDL/HDL (test code = (NOTE) RATIO 2238) LIPID [id number] 00:00:00 Test Item Value Reference Range Interpretation Comments CHOLESTEROL (test code = 2210) 220 MG/DL TRIGLYCERIDES (test code = 2232) 873 MG/DL HDL CHOLESTEROL (test code = 30 MG/DL 2220) CALC LDL CHOL (test code = 2237) (NOTE) MG/DL RISK RATIO LDL/HDL (test code = (NOTE) RATIO 2238) HEMOGLOBIN [id number] 00:00:00 Test Item Value Reference Range Interpretation Comments HEMOGLOBIN A1c (test code = 94663) 10.9 % HEMOGLOBIN [id number] 00:00:00 Test Item Value Reference Range Interpretation Comments HEMOGLOBIN A1c (test code = 31558) 10.9 % HEMOGLOBIN [id number] 00:00:00 Test Item Value Reference Range Interpretation Comments HEMOGLOBIN A1c (test code = 31912) 10.9 % CULTURE, [id number] 00:00:00 Test Item Value Reference Range Interpretation Comments CULTURE, URINE (test SPECIMEN NUMBER: code = 09294) [id number] COMPREHENSIVE METABOLIC [id number] 00:00:00 Test Item Value Reference Range Interpretation Comments GLUCOSE (test code = 2217) 217 MG/DL BUN (test code = 2208) 13 MG/DL CREATININE (test code = 2214) 0.64 MG/DL eGFR AMER. (test code 128 ML/MIN/1.73 = 35877) eGFR NON- AMER. (test 110 ML/MIN/1.73 code = 63437) CALC BUN/CREAT (test code = 20 RATIO [...] (test code = 2219) 47 U/L CULTURE, [id number] 00:00:00 Test Item Value Reference Range Interpretation Comments CULTURE, URINE (test SPECIMEN NUMBER: code = 15547) [id number] COMPREHENSIVE METABOLIC [id number] 00:00:00 Test Item Value Reference Range Interpretation Comments GLUCOSE (test code = 2217) 217 MG/DL BUN (test code = 2208) 13 MG/DL CREATININE (test code = 2214) 0.64 MG/DL eGFR AMER. (test code 128 ML/MIN/1.73 = 33116) eGFR NON- AMER. (test 110 ML/MIN/1.73 code = 30130) CALC BUN/CREAT (test code = 20 RATIO [...] (test code = 2219) 47 U/L LIPID [id number] 00:00:00 Test Item Value Reference Range Interpretation Comments CHOLESTEROL (test code = 2210) 220 MG/DL TRIGLYCERIDES (test code = 2232) 873 MG/DL HDL CHOLESTEROL (test code = 30 MG/DL 2220) CALC LDL CHOL (test code = 2237) (NOTE) MG/DL RISK RATIO LDL/HDL (test code = (NOTE) RATIO 2238) LIPID [id number] 00:00:00 Test Item Value Reference Range Interpretation Comments CHOLESTEROL (test code = 2210) 220 MG/DL TRIGLYCERIDES (test code = 2232) 873 MG/DL HDL CHOLESTEROL (test code = 30 MG/DL 2220) CALC LDL CHOL (test code = 2237) (NOTE) MG/DL RISK RATIO LDL/HDL (test code = (NOTE) RATIO 2238) HEMOGLOBIN [id number] 00:00:00 Test Item Value Reference Range Interpretation Comments HEMOGLOBIN A1c (test code = 22507) 10.9 % HEMOGLOBIN [id number] 00:00:00 Test Item Value Reference Range Interpretation Comments HEMOGLOBIN A1c (test code = 07221) 10.9 % HEMOGLOBIN [id number] 00:00:00 Test Item Value Reference Range Interpretation Comments HEMOGLOBIN A1c (test code = 45802) 10.9 % COMPREHENSIVE METABOLIC [id number] 00:00:00 Test Item Value Reference Range Interpretation Comments GLUCOSE (test code = 2217) 217 MG/DL BUN (test code = 2208) 13 MG/DL CREATININE (test code = 2214) 0.64 MG/DL eGFR AMER. (test code 128 ML/MIN/1.73 = 26962) eGFR NON- AMER. (test 110 ML/MIN/1.73 code = 50614) CALC BUN/CREAT (test code = 20 RATIO [...] (test code = 2219) 47 U/L CULTURE, [id number] 00:00:00 Test Item Value Reference Range Interpretation Comments CULTURE, URINE (test SPECIMEN NUMBER: code = 43439) [id number] COMPREHENSIVE METABOLIC [id number] 00:00:00 Test Item Value Reference Range Interpretation Comments GLUCOSE (test code = 2217) 217 MG/DL BUN (test code = 2208) 13 MG/DL CREATININE (test code = 2214) 0.64 MG/DL eGFR AMER. (test code 128 ML/MIN/1.73 = 14844) eGFR NON- AMER. (test 110 ML/MIN/1.73 code = 21168) CALC BUN/CREAT (test code = 20 RATIO [...] (test code = 2219) 47 U/L CULTURE, [id number] 00:00:00 Test Item Value Reference Range Interpretation Comments CULTURE, URINE (test SPECIMEN NUMBER: code = 86060) [id number] LIPID [id number] 00:00:00 Test Item Value Reference Range Interpretation Comments CHOLESTEROL (test code = 2210) 220 MG/DL TRIGLYCERIDES (test code = 2232) 873 MG/DL HDL CHOLESTEROL (test code = 30 MG/DL 2220) CALC LDL CHOL (test code = 2237) (NOTE) MG/DL RISK RATIO LDL/HDL (test code = (NOTE) RATIO 2238) LIPID [id number] 00:00:00 Test Item Value Reference Range Interpretation Comments CHOLESTEROL (test code = 2210) 220 MG/DL TRIGLYCERIDES (test code = 2232) 873 MG/DL HDL CHOLESTEROL (test code = 30 MG/DL 2220) CALC LDL CHOL (test code = 2237) (NOTE) MG/DL RISK RATIO LDL/HDL (test code = (NOTE) RATIO 2238) HEMOGLOBIN [id number] 00:00:00 Test Item Value Reference Range Interpretation Comments HEMOGLOBIN A1c (test code = 61106) 10.9 % HEMOGLOBIN [id number] 00:00:00 Test Item Value Reference Range Interpretation Comments HEMOGLOBIN A1c (test code = 62067) 10.9 % HEMOGLOBIN [id number] 00:00:00 Test Item Value Reference Range Interpretation Comments HEMOGLOBIN A1c (test code = 77274) 10.9 % - XR ANKLE 3 + V [id number] 07:19:00 Patient Name: Marge Franco Unit No: [id number] EXAMS: CPT CODE: [id number] XR ANKLE 3 + V RT [id number] ankle 3 views COMMENT: There is no [...] DO Technologist: RT JOSE(R) Transcribed D/ (718) [facility] NAME: Marge Franco [address] [facility] [address] PHYS: Judi Cardenas DO : 1980 AGE: 40 SEX: F [place], [place] [address] A CCT NO: [id number] LOC: TEOFILO PHONE #: [phone] EXAM DATE: 02/13/2020 STATUS: DEP ER FAX #: [phone] RAD #: D/C DT PAGE 1 Signed Report Patient Name: Magre Franco Unit No: [id number] EXAMS:CPT CODE: [id number] XR ANKLE 3 + V RT [id number] (Continued) Orig Print D/T: S: 02/14/2020 (721) [facility] NAME: Marge Franco [address] [facility] PHYS: Judi Cardenas DO : 1980 AGE: 40 SEX: F [place], [place] [address] LOC: TEOFILO PHONE #: [phone] EXAM DATE: 02/13/2020 STATUS: DEP ER FAX #: [phone] RAD #: D/C DT PAGE 2 Signed Report- XR FOOT 2 VIEWS [id number] 07:19:00 Patient Name: Marge Franco Unit No: [id number] EXAMS: CPT CODE: [id number] [place]R FO[place] [address] [place] [address] Right ankle 3 views COMMENT: There is [...] SAMANTHA MORALES, RT(R) Transcribed D/ (718) [facility] NAME: Marge Franco[address] [facility] PHYS: Judi Cardenas DO : 1980 AGE: 40 SEX: F [place], [place] [address]DJFH NO: [id number] LOC: TEOFILO PHONE #: [phone] EXAM DATE: 02/13/2020 STATUS: DEP ER FAX #: [phone] RAD #: D/C DT PAGE 1 Signed Report Patient Name: Marge Franco Unit No: [id number] EXAMS: CPT CODE: [id number] XR FOOT 2 [place] [address] (Continued) Orig Print D/T: S: 02/14/2020 (0722) [facility] NAME: Marge Franco [address] [facility] PHYS: Judi Cardenas DO : 1980 AGE: 40 SEX: F [place], [place] [address] LOC: TEOFILO PHONE #: [phone] EX AM DATE: 02/13/2020 STATUS: DEP ER FAX #: [phone] RAD #: D/C DT PAGE 2 Signed [id number] 11:17:00 Test Item Value Reference Range Interpretation Comments GLUBED (test code = GLUBED) 119 mg/dL 60-125 N [id number] 08:15:00 Test Item Value Reference Range Interpretation Comments GLUBED (test code = GLUBED) 117 mg/dL 60-125 N Novel Coronavirus 2019 [id number] 17:12:00 Test Item Value Reference Range Interpretation Comments Novel Coronavirus 2019 Inhouse (test Negative Negative code = COVNONPUI) Novel Coronavirus 2019 [id number] 17:12:00 Test Item Value Reference Range Interpretation Comments Novel Coronavirus 2019 Inhouse (test Negative Negative code = COVNONPUI) CBC W/AUTO [id number] 20:19:00 Test Item Value Reference Range Interpretation [...] 0-0 N code = NRBC) BASIC METABOLIC [id number] 19:54:00 Test Item Value Reference Range Interpretation [...] RATE (test code = GFR) mL/mi n/1.73 [id number] Range:Healthy A dults >90 mL/min/1.73 m2 For Chronic Kid stoney Disease: Stage II Mild Decrease i n GFR 60-90 Stage III Moderate Decrea se in GFR 30-59 Stage IV Severe Decrease in GFR 15-29 Stage V Kidney Failure <15 CREATININE (test code 0.83 mg/dL 0.55-1.30 N = CREAT) CALCIUM (test code = 9.6 mg/dL 8.2-10.1 N CA) - CT LOWER EXTRM W/O C [id number] 14:57:00 Patient Name: MARGE FRANCO Unit No: [id number] EXAMS: CPT CODE: [id number] CT LOWER EXTRM W/[place] [address] [place] SCAN RIGHT ANKLE WITH RECONSTRUCTION DIAGNOSIS: [...] with ACR practice standards and adherence to lamp inspector's recommendations. INDICATION: RIGHT ANKLE PAIN COMPARISON: None.COMMENT: Findings are as described above. at 1457 Reported and signed by: America Schuler MD CC: Elbert Wilson MD Technologist: Shaan Prakash ins,RT(R) CTDI: DLP: Trnscrpt: 01/04/2020 (7184) [facility] MARGE FRANCO [address] [facility] PHYS: Elbert Rodrigues MD : 1980 AGE: 39 SEX: F [place], [place] [address] LOC: Y.RAD PHONE #: [phone] EXAM DATE: 01/04/2020 STATUS: REG CLI FAX #: [phone] RAD #: D/C DT PAGE 1 Signed Report Patient Name: MARGE FRANCO No: [id number] EXAMS: CPT CODE: [id number] CT LOWER EXTRM W/[place] [address] (Continued) Orig PrintD/T: S: 01/04/2020 (1500) [facility] NAME: [facility]CO [address] [facility] Elbert Rodrigues MD : 1980 AGE: 39 SEX: F [place] [address] LOC: Y.RAD PHONE #: [phone] EXAM DATE: 01/04/2020 STATUS: REG CLI FAX #: [phone] RAD #: D/C DT PAGE 2 Signed ReportCULTURE, URINE 2019-12-22 00:00:00 Test Item Value Reference Range Interpretation Comments CULTURE, URINE (test SPECIMEN NUMBER: code = 62823) [id number] CULTURE, [id number] 00:00:00 Test Item Value Reference Range Interpretation Comments CULTURE, URINE (test SPECIMEN NUMBER: code = 56220) [id number] CULTURE, [id number] 00:00:00 Test Item Value Reference Range Interpretation Comments CULTURE, URINE (test SPECIMEN NUMBER: code = 17994) [id number] CULTURE, [id number] 00:00:00 Test Item Value Reference Range Interpretation Comments CULTURE, URINE (test SPECIMEN NUMBER: code = 93992) [id number] CULTURE, [id number] 00:00:00 Test Item Value Reference Range Interpretation Comments CULTURE, URINE (test SPECIMEN NUMBER: code = 98986) [id number] CULTURE, [id number] 00:00:00 Test Item Value Reference Range Interpretation Comments CULTURE, URINE (test SPECIMEN NUMBER: code = 21015) [id number] CULTURE, [id number] 00:00:00 Test Item Value Reference Range Interpretation Comments CULTURE, URINE (test SPECIMEN NUMBER: code = 61209) [id number] CULTURE, [id number] 00:00:00 Test Item Value Reference Range Interpretation Comments CULTURE, URINE (test SPECIMEN NUMBER: code = 81051) [id number] CULTURE, [id number] 00:00:00 Test Item Value Reference Range Interpretation Comments CULTURE, URINE (test SPECIMEN NUMBER: code = 22972) [id number] CULTURE, [id number] 00:00:00 Test Item Value Reference Range Interpretation Comments CULTURE, URINE (test SPECIMEN NUMBER: code = 87389) [id number] CULTURE, [id number] 00:00:00 Test Item Value Reference Range Interpretation Comments CULTURE, URINE (test SPECIMEN NUMBER: code = 11362) [id number] CULTURE, [id number] 00:00:00 Test Item Value Reference Range Interpretation Comments CULTURE, URINE (test SPECIMEN NUMBER: code = 56189) [id number] CULTURE, [id number] 00:00:00 Test Item Value Reference Range Interpretation Comments CULTURE, URINE (test SPECIMEN NUMBER: code = 88379) [id number] CULTURE, [id number] 00:00:00 Test Item Value Reference Range Interpretation Comments CULTURE, URINE (test SPECIMEN NUMBER: code = 72961) [id number] CULTURE, [id number] 00:00:00 Test Item Value Reference Range Interpretation Comments CULTURE, URINE (test SPECIMEN NUMBER: code = 24139) [id number] CULTURE, [id number] 00:00:00 Test Item Value Reference Range Interpretation Comments CULTURE, URINE (test SPECIMEN NUMBER: code = 78011) [id number] CULTURE, [id number] 00:00:00 Test Item Value Reference Range Interpretation Comments CULTURE, URINE (test SPECIMEN NUMBER: code = 89700) [id number] CULTURE, [id number] 00:00:00 Test Item Value Reference Range Interpretation Comments CULTURE, URINE (test SPECIMEN NUMBER: code = 00150) [id number] CULTURE, [id number] 00:00:00 Test Item Value Reference Range Interpretation Comments CULTURE, URINE (test SPECIMEN NUMBER: code = 48686) [id number] CULTURE, [id number] 00:00:00 Test Item Value Reference Range Interpretation Comments CULTURE, URINE (test SPECIMEN NUMBER: code = 80772) [id number] CULTURE, [id number] 00:00:00 Test Item Value Reference Range Interpretation Comments CULTURE, URINE (test SPECIMEN NUMBER: code = 32553) [id number] LIPID [id number] 00:00:00 Test Item Value Reference Range Interpretation Comments CHOLESTEROL (test code = 2210) 354 MG/DL TRIGLYCERIDES (test code = 2232) 2608 MG/DL HDL CHOLESTEROL (test code = 19 MG/DL 2220) CALC LDL CHOL (test code = 2237) NOTE MG/DL RISK RATIO LDL/HDL (test code = (NOTE) RATIO 2238) LIPID [id number] 00:00:00 Test Item Value Reference Range Interpretation Comments CHOLESTEROL (test code = 2210) 354 MG/DL TRIGLYCERIDES (test code = 2232) 2608 MG/DL HDL CHOLESTEROL (test code = 19 MG/DL 2220) CALC LDL CHOL (test code = 2237) NOTE MG/DL RISK RATIO LDL/HDL (test code = (NOTE) RATIO 2238) HEMOGLOBIN [id number] 00:00:00 Test Item Value Reference Range Interpretation Comments HEMOGLOBIN A1c (test code = 65463) 11.5 % HEMOGLOBIN [id number] 00:00:00 Test Item Value Reference Range Interpretation Comments HEMOGLOBIN A1c (test code = 06590) 11.5 % HEMOGLOBIN [id number] 00:00:00 Test Item Value Reference Range Interpretation Comments HEMOGLOBIN A1c (test code = 11974) 11.5 % MICROALBUMIN/CREATININE, RANDOM AND [id number] 00:00:00 Test Item Value Reference Range Interpretation Comments CREATININE, URINE, CONC. (test 92.4 MG/DL code = 2072) ALBUMIN, URINE, RANDOM (test code 158.5 MG/DL = 83480) CALC ALBUMIN/CREAT, RND (test 1715 MG/G code = 84084) MICROALBUMIN/CREATININE, RANDOM AND [id number] 00:00:00 Test Item Value Reference Range Interpretation Comments CREATININE, URINE, CONC. (test 92.4 MG/DL code = 2072) ALBUMIN, URINE, RANDOM (test code 158.5 MG/DL = 49488) CALC ALBUMIN/CREAT, RND (test 1715 MG/G code = 32405) LIPID [id number] 00:00:00 Test Item Value Reference Range Interpretation Comments CHOLESTEROL (test code = 2210) 354 MG/DL TRIGLYCERIDES (test code = 2232) 2608 MG/DL HDL CHOLESTEROL (test code = 19 MG/DL 2220) CALC LDL CHOL (test code = 2237) NOTE MG/DL RISK RATIO LDL/HDL (test code = (NOTE) RATIO 2238) LIPID [id number] 00:00:00 Test Item Value Reference Range Interpretation Comments CHOLESTEROL (test code = 2210) 354 MG/DL TRIGLYCERIDES (test code = 2232) 2608 MG/DL HDL CHOLESTEROL (test code = 19 MG/DL 2220) CALC LDL CHOL (test code = 2237) NOTE MG/DL RISK RATIO LDL/HDL (test code = (NOTE) RATIO 2238) HEMOGLOBIN [id number] 00:00:00 Test Item Value Reference Range Interpretation Comments HEMOGLOBIN A1c (test code = 76827) 11.5 % HEMOGLOBIN [id number] 00:00:00 Test Item Value Reference Range Interpretation Comments HEMOGLOBIN A1c (test code = 59819) 11.5 % HEMOGLOBIN [id number] 00:00:00 Test Item Value Reference Range Interpretation Comments HEMOGLOBIN A1c (test code = 30450) 11.5 % MICROALBUMIN/CREATININE, RANDOM AND [id number] 00:00:00 Test Item Value Reference Range Interpretation Comments CREATININE, URINE, CONC. (test 92.4 MG/DL code = 2072) ALBUMIN, URINE, RANDOM (test code 158.5 MG/DL = 50321) CALC ALBUMIN/CREAT, RND (test 1715 MG/G code = 98933) MICROALBUMIN/CREATININE, RANDOM AND [id number] 00:00:00 Test Item Value Reference Range Interpretation Comments CREATININE, URINE, CONC. (test 92.4 MG/DL code = 2072) ALBUMIN, URINE, RANDOM (test code 158.5 MG/DL = 95517) CALC ALBUMIN/CREAT, RND (test 1715 MG/G code = 19420) LIPID [id number] 00:00:00 Test Item Value Reference Range Interpretation Comments CHOLESTEROL (test code = 2210) 354 MG/DL TRIGLYCERIDES (test code = 2232) 2608 MG/DL HDL CHOLESTEROL (test code = 19 MG/DL 2220) CALC LDL CHOL (test code = 2237) NOTE MG/DL RISK RATIO LDL/HDL (test code = (NOTE) RATIO 2238) LIPID [id number] 00:00:00 Test Item Value Reference Range Interpretation Comments CHOLESTEROL (test code = 2210) 354 MG/DL TRIGLYCERIDES (test code = 2232) 2608 MG/DL HDL CHOLESTEROL (test code = 19 MG/DL 2220) CALC LDL CHOL (test code = 2237) NOTE MG/DL RISK RATIO LDL/HDL (test code = (NOTE) RATIO 2238) HEMOGLOBIN [id number] 00:00:00 Test Item Value Reference Range Interpretation Comments HEMOGLOBIN A1c (test code = 69414) 11.5 % HEMOGLOBIN [id number] 00:00:00 Test Item Value Reference Range Interpretation Comments HEMOGLOBIN A1c (test code = 04077) 11.5 % HEMOGLOBIN [id number] 00:00:00 Test Item Value Reference Range Interpretation Comments HEMOGLOBIN A1c (test code = 47865) 11.5 % MICROALBUMIN/CREATININE, RANDOM AND [id number] 00:00:00 Test Item Value Reference Range Interpretation Comments CREATININE, URINE, CONC. (test 92.4 MG/DL code = 2072) ALBUMIN, URINE, RANDOM (test code 158.5 MG/DL = 79387) CALC ALBUMIN/CREAT, RND (test 1715 MG/G code = 18543) MICROALBUMIN/CREATININE, RANDOM AND [id number] 00:00:00 Test Item Value Reference Range Interpretation Comments CREATININE, URINE, CONC. (test 92.4 MG/DL code = 2072) ALBUMIN, URINE, RANDOM (test code 158.5 MG/DL = 04077) CALC ALBUMIN/CREAT, RND (test 1715 MG/G code = 19082) LIPID [id number] 00:00:00 Test Item Value Reference Range Interpretation Comments CHOLESTEROL (test code = 2210) 354 MG/DL TRIGLYCERIDES (test code = 2232) 2608 MG/DL HDL CHOLESTEROL (test code = 19 MG/DL 2220) CALC LDL CHOL (test code = 2237) NOTE MG/DL RISK RATIO LDL/HDL (test code = (NOTE) RATIO 2238) LIPID [id number] 00:00:00 Test Item Value Reference Range Interpretation Comments CHOLESTEROL (test code = 2210) 354 MG/DL TRIGLYCERIDES (test code = 2232) 2608 MG/DL HDL CHOLESTEROL (test code = 19 MG/DL 2220) CALC LDL CHOL (test code = 2237) NOTE MG/DL RISK RATIO LDL/HDL (test code = (NOTE) RATIO 2238) HEMOGLOBIN [id number] 00:00:00 Test Item Value Reference Range Interpretation Comments HEMOGLOBIN A1c (test code = 82795) 11.5 % HEMOGLOBIN [id number] 00:00:00 Test Item Value Reference Range Interpretation Comments HEMOGLOBIN A1c (test code = 85411) 11.5 % HEMOGLOBIN [id number] 00:00:00 Test Item Value Reference Range Interpretation Comments HEMOGLOBIN A1c (test code = 39282) 11.5 % MICROALBUMIN/CREATININE, RANDOM AND [id number] 00:00:00 Test Item Value Reference Range Interpretation Comments CREATININE, URINE, CONC. (test 92.4 MG/DL code = 2072) ALBUMIN, URINE, RANDOM (test code 158.5 MG/DL = 83524) CALC ALBUMIN/CREAT, RND (test 1715 MG/G code = 14296) MICROALBUMIN/CREATININE, RANDOM AND [id number] 00:00:00 Test Item Value Reference Range Interpretation Comments CREATININE, URINE, CONC. (test 92.4 MG/DL code = 2072) ALBUMIN, URINE, RANDOM (test code 158.5 MG/DL = 55896) CALC ALBUMIN/CREAT, RND (test 1715 MG/G code = 74357) LIPID [id number] 00:00:00 Test Item Value Reference Range Interpretation Comments CHOLESTEROL (test code = 2210) 354 MG/DL TRIGLYCERIDES (test code = 2232) 2608 MG/DL HDL CHOLESTEROL (test code = 19 MG/DL 2220) CALC LDL CHOL (test code = 2237) NOTE MG/DL RISK RATIO LDL/HDL (test code = (NOTE) RATIO 2238) LIPID [id number] 00:00:00 Test Item Value Reference Range Interpretation Comments CHOLESTEROL (test code = 2210) 354 MG/DL TRIGLYCERIDES (test code = 2232) 2608 MG/DL HDL CHOLESTEROL (test code = 19 MG/DL 2220) CALC LDL CHOL (test code = 2237) NOTE MG/DL RISK RATIO LDL/HDL (test code = (NOTE) RATIO 2238) HEMOGLOBIN [id number] 00:00:00 Test Item Value Reference Range Interpretation Comments HEMOGLOBIN A1c (test code = 64119) 11.5 % HEMOGLOBIN [id number] 00:00:00 Test Item Value Reference Range Interpretation Comments HEMOGLOBIN A1c (test code = 48100) 11.5 % HEMOGLOBIN [id number] 00:00:00 Test Item Value Reference Range Interpretation Comments HEMOGLOBIN A1c (test code = 45015) 11.5 % MICROALBUMIN/CREATININE, RANDOM AND [id number] 00:00:00 Test Item Value Reference Range Interpretation Comments CREATININE, URINE, CONC. (test 92.4 MG/DL code = 2072) ALBUMIN, URINE, RANDOM (test code 158.5 MG/DL = 62423) CALC ALBUMIN/CREAT, RND (test 1715 MG/G code = 40813) MICROALBUMIN/CREATININE, RANDOM AND [id number] 00:00:00 Test Item Value Reference Range Interpretation Comments CREATININE, URINE, CONC. (test 92.4 MG/DL code = 2072) ALBUMIN, URINE, RANDOM (test code 158.5 MG/DL = 64091) CALC ALBUMIN/CREAT, RND (test 1715 MG/G code = 10503) LIPID [id number] 00:00:00 Test Item Value Reference Range Interpretation Comments CHOLESTEROL (test code = 2210) 354 MG/DL TRIGLYCERIDES (test code = 2232) 2608 MG/DL HDL CHOLESTEROL (test code = 19 MG/DL 2220) CALC LDL CHOL (test code = 2237) NOTE MG/DL RISK RATIO LDL/HDL (test code = (NOTE) RATIO 2238) LIPID [id number] 00:00:00 Test Item Value Reference Range Interpretation Comments CHOLESTEROL (test code = 2210) 354 MG/DL TRIGLYCERIDES (test code = 2232) 2608 MG/DL HDL CHOLESTEROL (test code = 19 MG/DL 2220) CALC LDL CHOL (test code = 2237) NOTE MG/DL RISK RATIO LDL/HDL (test code = (NOTE) RATIO 2238) HEMOGLOBIN [id number] 00:00:00 Test Item Value Reference Range Interpretation Comments HEMOGLOBIN A1c (test code = 38715) 11.5 % HEMOGLOBIN [id number] 00:00:00 Test Item Value Reference Range Interpretation Comments HEMOGLOBIN A1c (test code = 19182) 11.5 % HEMOGLOBIN [id number] 00:00:00 Test Item Value Reference Range Interpretation Comments HEMOGLOBIN A1c (test code = 52921) 11.5 % MICROALBUMIN/CREATININE, RANDOM AND [id number] 00:00:00 Test Item Value Reference Range Interpretation Comments CREATININE, URINE, CONC. (test 92.4 MG/DL code = 2072) ALBUMIN, URINE, RANDOM (test code 158.5 MG/DL = 10208) CALC ALBUMIN/CREAT, RND (test 1715 MG/G code = 35766) MICROALBUMIN/CREATININE, RANDOM AND [id number] 00:00:00 Test Item Value Reference Range Interpretation Comments CREATININE, URINE, CONC. (test 92.4 MG/DL code = 2072) ALBUMIN, URINE, RANDOM (test code 158.5 MG/DL = 27650) CALC ALBUMIN/CREAT, RND (test 1715 MG/G code = 49526) LIPID [id number] 00:00:00 Test Item Value Reference Range Interpretation Comments CHOLESTEROL (test code = 2210) 354 MG/DL TRIGLYCERIDES (test code = 2232) 2608 MG/DL HDL CHOLESTEROL (test code = 19 MG/DL 2220) CALC LDL CHOL (test code = 2237) NOTE MG/DL RISK RATIO LDL/HDL (test code = (NOTE) RATIO 2238) LIPID [id number] 00:00:00 Test Item Value Reference Range Interpretation Comments CHOLESTEROL (test code = 2210) 354 MG/DL TRIGLYCERIDES (test code = 2232) 2608 MG/DL HDL CHOLESTEROL (test code = 19 MG/DL 2220) CALC LDL CHOL (test code = 2237) NOTE MG/DL RISK RATIO LDL/HDL (test code = (NOTE) RATIO 2238) HEMOGLOBIN [id number] 00:00:00 Test Item Value Reference Range Interpretation Comments HEMOGLOBIN A1c (test code = 66319) 11.5 % HEMOGLOBIN [id number] 00:00:00 Test Item Value Reference Range Interpretation Comments HEMOGLOBIN A1c (test code = 15987) 11.5 % HEMOGLOBIN [id number] 00:00:00 Test Item Value Reference Range Interpretation Comments HEMOGLOBIN A1c (test code = 61684) 11.5 % MICROALBUMIN/CREATININE, RANDOM AND [id number] 00:00:00 Test Item Value Reference Range Interpretation Comments CREATININE, URINE, CONC. (test 92.4 MG/DL code = 2072) ALBUMIN, URINE, RANDOM (test code 158.5 MG/DL = 04614) CALC ALBUMIN/CREAT, RND (test 1715 MG/G code = 76051) MICROALBUMIN/CREATININE, RANDOM AND [id number] 00:00:00 Test Item Value Reference Range Interpretation Comments CREATININE, URINE, CONC. (test 92.4 MG/DL code = 2072) ALBUMIN, URINE, RANDOM (test code 158.5 MG/DL = 00130) CALC ALBUMIN/CREAT, RND (test 1715 MG/G code = 92588) LIPID [id number] 00:00:00 Test Item Value Reference Range Interpretation Comments CHOLESTEROL (test code = 2210) 354 MG/DL TRIGLYCERIDES (test code = 2232) 2608 MG/DL HDL CHOLESTEROL (test code = 19 MG/DL 2220) CALC LDL CHOL (test code = 2237) NOTE MG/DL RISK RATIO LDL/HDL (test code = (NOTE) RATIO 2238) HEMOGLOBIN [id number] 00:00:00 Test Item Value Reference Range Interpretation Comments HEMOGLOBIN A1c (test code = 77576) 11.5 % HEMOGLOBIN [id number] 00:00:00 Test Item Value Reference Range Interpretation Comments HEMOGLOBIN A1c (test code = 82661) 11.5 % MICROALBUMIN/CREATININE, RANDOM AND [id number] 00:00:00 Test Item Value Reference Range Interpretation Comments CREATININE, URINE, CONC. (test 92.4 MG/DL code = 2072) ALBUMIN, URINE, RANDOM (test code 158.5 MG/DL = 11204) CALC ALBUMIN/CREAT, RND (test 1715 MG/G code = 39580) LIPID [id number] 00:00:00 Test Item Value Reference Range Interpretation Comments CHOLESTEROL (test code = 2210) 354 MG/DL TRIGLYCERIDES (test code = 2232) 2608 MG/DL HDL CHOLESTEROL (test code = 19 MG/DL 2220) CALC LDL CHOL (test code = 2237) NOTE MG/DL RISK RATIO LDL/HDL (test code = (NOTE) RATIO 2238) LIPID [id number] 00:00:00 Test Item Value Reference Range Interpretation Comments CHOLESTEROL (test code = 2210) 354 MG/DL TRIGLYCERIDES (test code = 2232) 2608 MG/DL HDL CHOLESTEROL (test code = 19 MG/DL 2220) CALC LDL CHOL (test code = 2237) NOTE MG/DL RISK RATIO LDL/HDL (test code = (NOTE) RATIO 2238) HEMOGLOBIN [id number] 00:00:00 Test Item Value Reference Range Interpretation Comments HEMOGLOBIN A1c (test code = 35662) 11.5 % HEMOGLOBIN [id number] 00:00:00 Test Item Value Reference Range Interpretation Comments HEMOGLOBIN A1c (test code = 30175) 11.5 % HEMOGLOBIN [id number] 00:00:00 Test Item Value Reference Range Interpretation Comments HEMOGLOBIN A1c (test code = 33078) 11.5 % MICROALBUMIN/CREATININE, RANDOM AND [id number] 00:00:00 Test Item Value Reference Range Interpretation Comments CREATININE, URINE, CONC. (test 92.4 MG/DL code = 2072) ALBUMIN, URINE, RANDOM (test code 158.5 MG/DL = 45165) CALC ALBUMIN/CREAT, RND (test 1715 MG/G code = 80831) MICROALBUMIN/CREATININE, RANDOM AND [id number] 00:00:00 Test Item Value Reference Range Interpretation Comments CREATININE, URINE, CONC. (test 92.4 MG/DL code = 2072) ALBUMIN, URINE, RANDOM (test code 158.5 MG/DL = 87723) CALC ALBUMIN/CREAT, RND (test 1715 MG/G code = 12224) LIPID [id number] 00:00:00 Test Item Value Reference Range Interpretation Comments CHOLESTEROL (test code = 2210) 354 MG/DL TRIGLYCERIDES (test code = 2232) 2608 MG/DL HDL CHOLESTEROL (test code = 19 MG/DL 2220) CALC LDL CHOL (test code = 2237) NOTE MG/DL RISK RATIO LDL/HDL (test code = (NOTE) RATIO 2238) LIPID [id number] 00:00:00 Test Item Value Reference Range Interpretation Comments CHOLESTEROL (test code = 2210) 354 MG/DL TRIGLYCERIDES (test code = 2232) 2608 MG/DL HDL CHOLESTEROL (test code = 19 MG/DL 2220) CALC LDL CHOL (test code = 2237) NOTE MG/DL RISK RATIO LDL/HDL (test code = (NOTE) RATIO 2238) HEMOGLOBIN [id number] 00:00:00 Test Item Value Reference Range Interpretation Comments HEMOGLOBIN A1c (test code = 01976) 11.5 % HEMOGLOBIN [id number] 00:00:00 Test Item Value Reference Range Interpretation Comments HEMOGLOBIN A1c (test code = 31281) 11.5 % HEMOGLOBIN [id number] 00:00:00 Test Item Value Reference Range Interpretation Comments HEMOGLOBIN A1c (test code = 97815) 11.5 % MICROALBUMIN/CREATININE, RANDOM AND [id number] 00:00:00 Test Item Value Reference Range Interpretation Comments CREATININE, URINE, CONC. (test 92.4 MG/DL code = 2072) ALBUMIN, URINE, RANDOM (test code 158.5 MG/DL = 43848) CALC ALBUMIN/CREAT, RND (test 1715 MG/G code = 42119) MICROALBUMIN/CREATININE, RANDOM AND [id number] 00:00:00 Test Item Value Reference Range Interpretation Comments CREATININE, URINE, CONC. (test 92.4 MG/DL code = 2072) ALBUMIN, URINE, RANDOM (test code 158.5 MG/DL = 40988) CALC ALBUMIN/CREAT, RND (test 1715 MG/G code = 14544) LIPID [id number] 00:00:00 Test Item Value Reference Range Interpretation Comments CHOLESTEROL (test code = 2210) 354 MG/DL TRIGLYCERIDES (test code = 2232) 2608 MG/DL HDL CHOLESTEROL (test code = 19 MG/DL 2220) CALC LDL CHOL (test code = 2237) NOTE MG/DL RISK RATIO LDL/HDL (test code = (NOTE) RATIO 2238) LIPID [id number] 00:00:00 Test Item Value Reference Range Interpretation Comments CHOLESTEROL (test code = 2210) 354 MG/DL TRIGLYCERIDES (test code = 2232) 2608 MG/DL HDL CHOLESTEROL (test code = 19 MG/DL 2220) CALC LDL CHOL (test code = 2237) NOTE MG/DL RISK RATIO LDL/HDL (test code = (NOTE) RATIO 2238) HEMOGLOBIN [id number] 00:00:00 Test Item Value Reference Range Interpretation Comments HEMOGLOBIN A1c (test code = 58562) 11.5 % HEMOGLOBIN [id number] 00:00:00 Test Item Value Reference Range Interpretation Comments HEMOGLOBIN A1c (test code = 50913) 11.5 % HEMOGLOBIN [id number] 00:00:00 Test Item Value Reference Range Interpretation Comments HEMOGLOBIN A1c (test code = 49831) 11.5 % MICROALBUMIN/CREATININE, RANDOM AND [id number] 00:00:00 Test Item Value Reference Range Interpretation Comments CREATININE, URINE, CONC. (test 92.4 MG/DL code = 2072) ALBUMIN, URINE, RANDOM (test code 158.5 MG/DL = 54947) CALC ALBUMIN/CREAT, RND (test 1715 MG/G code = 09410) MICROALBUMIN/CREATININE, RANDOM AND [id number] 00:00:00 Test Item Value Reference Range Interpretation Comments CREATININE, URINE, CONC. (test 92.4 MG/DL code = 2072) ALBUMIN, URINE, RANDOM (test code 158.5 MG/DL = 83424) CALC ALBUMIN/CREAT, RND (test 1715 MG/G code = 55753) CULTURE, [id number] 00:00:00 Test Item Value Reference Range Interpretation Comments CULTURE, URINE (test SPECIMEN NUMBER: code = 10194) [id number] CULTURE, [id number] 00:00:00 Test Item Value Reference Range Interpretation Comments CULTURE, URINE (test SPECIMEN NUMBER: code = 81681) [id number] CULTURE, [id number] 00:00:00 Test Item Value Reference Range Interpretation Comments CULTURE, URINE (test SPECIMEN NUMBER: code = 28707) [id number] CULTURE, [id number] 00:00:00 Test Item Value Reference Range Interpretation Comments CULTURE, URINE (test SPECIMEN NUMBER: code = 24818) [id number] CULTURE, [id number] 00:00:00 Test Item Value Reference Range Interpretation Comments CULTURE, URINE (test SPECIMEN NUMBER: code = 11247) [id number] CULTURE, [id number] 00:00:00 Test Item Value Reference Range Interpretation Comments CULTURE, URINE (test SPECIMEN NUMBER: code = 61066) [id number] CULTURE, [id number] 00:00:00 Test Item Value Reference Range Interpretation Comments CULTURE, URINE (test SPECIMEN NUMBER: code = 94670) [id number] CULTURE, [id number] 00:00:00 Test Item Value Reference Range Interpretation Comments CULTURE, URINE (test SPECIMEN NUMBER: code = 15123) [id number] CULTURE, [id number] 00:00:00 Test Item Value Reference Range Interpretation Comments CULTURE, URINE (test SPECIMEN NUMBER: code = 40954) [id number] CULTURE, [id number] 00:00:00 Test Item Value Reference Range Interpretation Comments CULTURE, URINE (test SPECIMEN NUMBER: code = 33604) [id number] CULTURE, [id number] 00:00:00 Test Item Value Reference Range Interpretation Comments CULTURE, URINE (test SPECIMEN NUMBER: code = 68803) [id number] CULTURE, [id number] 00:00:00 Test Item Value Reference Range Interpretation Comments CULTURE, URINE (test SPECIMEN NUMBER: code = 63184) [id number] CULTURE, [id number] 00:00:00 Test Item Value Reference Range Interpretation Comments CULTURE, URINE (test SPECIMEN NUMBER: code = 15894) [id number] CULTURE, [id number] 00:00:00 Test Item Value Reference Range Interpretation Comments CULTURE, URINE (test SPECIMEN NUMBER: code = 56601) [id number] CULTURE, [id number] 00:00:00 Test Item Value Reference Range Interpretation Comments CULTURE, URINE (test SPECIMEN NUMBER: code = 67832) [id number] CULTURE, [id number] 00:00:00 Test Item Value Reference Range Interpretation Comments CULTURE, URINE (test SPECIMEN NUMBER: code = 24569) [id number] CULTURE, [id number] 00:00:00 Test Item Value Reference Range Interpretation Comments CULTURE, URINE (test SPECIMEN NUMBER: code = 37509) [id number] CULTURE, [id number] 00:00:00 Test Item Value Reference Range Interpretation Comments CULTURE, URINE (test SPECIMEN NUMBER: code = 90030) [id number] CULTURE, [id number] 00:00:00 Test Item Value Reference Range Interpretation Comments CULTURE, URINE (test SPECIMEN NUMBER: code = 99171) [id number] CULTURE, [id number] 00:00:00 Test Item Value Reference Range Interpretation Comments CULTURE, URINE (test SPECIMEN NUMBER: code = 30242) [id number] CULTURE, [id number] 00:00:00 Test Item Value Reference Range Interpretation Comments CULTURE, URINE (test SPECIMEN NUMBER: code = 92822) [id number] VAGINAL PATHOGENS DNA [id number] 00:00:00 Test Item Value Reference Range Interpretation Comments ANDIE SPECIES (test code = 57626) POSITIVE G. VAGINALIS (test code = 08890) NEGATIVE T. VAGINALIS (test code = 36758) NEGATIVE VAGINAL PATHOGENS DNA [id number] 00:00:00 Test Item Value Reference Range Interpretation Comments ANDIE SPECIES (test code = 51786) POSITIVE G. VAGINALIS (test code = 83110) NEGATIVE T. VAGINALIS (test code = 05547) NEGATIVE VAGINAL PATHOGENS DNA [id number] 00:00:00 Test Item Value Reference Range Interpretation Comments ANDIE SPECIES (test code = 10709) POSITIVE G. VAGINALIS (test code = 78336) NEGATIVE T. VAGINALIS (test code = 26035) NEGATIVE VAGINAL PATHOGENS DNA [id number] 00:00:00 Test Item Value Reference Range Interpretation Comments ANDIE SPECIES (test code = 67083) POSITIVE G. VAGINALIS (test code = 40664) NEGATIVE T. VAGINALIS (test code = 58011) NEGATIVE VAGINAL PATHOGENS DNA [id number] 00:00:00 Test Item Value Reference Range Interpretation Comments ANDIE SPECIES (test code = 52393) POSITIVE G. VAGINALIS (test code = 95605) NEGATIVE T. VAGINALIS (test code = 03326) NEGATIVE VAGINAL PATHOGENS DNA [id number] 00:00:00 Test Item Value Reference Range Interpretation Comments ANDIE SPECIES (test code = 55309) POSITIVE G. VAGINALIS (test code = 38396) NEGATIVE T. VAGINALIS (test code = 06353) NEGATIVE VAGINAL PATHOGENS DNA [id number] 00:00:00 Test Item Value Reference Range Interpretation Comments ANDIE SPECIES (test code = 79440) POSITIVE G. VAGINALIS (test code = 60863) NEGATIVE T. VAGINALIS (test code = 71514) NEGATIVE VAGINAL PATHOGENS DNA [id number] 00:00:00 Test Item Value Reference Range Interpretation Comments ANDIE SPECIES (test code = 44172) POSITIVE G. VAGINALIS (test code = 61133) NEGATIVE T. VAGINALIS (test code = 99812) NEGATIVE VAGINAL PATHOGENS DNA [id number] 00:00:00 Test Item Value Reference Range Interpretation Comments ANDIE SPECIES (test code = 39882) POSITIVE G. VAGINALIS (test code = 76504) NEGATIVE T. VAGINALIS (test code = 33944) NEGATIVE VAGINAL PATHOGENS DNA [id number] 00:00:00 Test Item Value Reference Range Interpretation Comments ANDIE SPECIES (test code = 47380) POSITIVE G. VAGINALIS (test code = 03512) NEGATIVE T. VAGINALIS (test code = 64398) NEGATIVE VAGINAL PATHOGENS DNA [id number] 00:00:00 Test Item Value Reference Range Interpretation Comments ANDIE SPECIES (test code = 47117) POSITIVE G. VAGINALIS (test code = 47382) NEGATIVE T. VAGINALIS (test code = 89127) NEGATIVE VAGINAL PATHOGENS DNA [id number] 00:00:00 Test Item Value Reference Range Interpretation Comments ANDIE SPECIES (test code = 49937) POSITIVE G. VAGINALIS (test code = 93556) NEGATIVE T. VAGINALIS (test code = 60527) NEGATIVE VAGINAL PATHOGENS DNA [id number] 00:00:00 Test Item Value Reference Range Interpretation Comments ANDIE SPECIES (test code = 68361) POSITIVE G. VAGINALIS (test code = 32777) NEGATIVE T. VAGINALIS (test code = 21640) NEGATIVE VAGINAL PATHOGENS DNA [id number] 00:00:00 Test Item Value Reference Range Interpretation Comments ANDIE SPECIES (test code = 63798) POSITIVE G. VAGINALIS (test code = 50114) NEGATIVE T. VAGINALIS (test code = 99617) NEGATIVE VAGINAL PATHOGENS DNA [id number] 00:00:00 Test Item Value Reference Range Interpretation Comments ANDIE SPECIES (test code = 25377) POSITIVE G. VAGINALIS (test code = 01645) NEGATIVE T. VAGINALIS (test code = 12479) NEGATIVE VAGINAL PATHOGENS DNA [id number] 00:00:00 Test Item Value Reference Range Interpretation Comments ANDIE SPECIES (test code = 85387) POSITIVE G. VAGINALIS (test code = 41944) NEGATIVE T. VAGINALIS (test code = 58101) NEGATIVE VAGINAL PATHOGENS DNA [id number] 00:00:00 Test Item Value Reference Range Interpretation Comments ANDIE SPECIES (test code = 73232) POSITIVE G. VAGINALIS (test code = 03683) NEGATIVE T. VAGINALIS (test code = 82508) NEGATIVE VAGINAL PATHOGENS DNA [id number] 00:00:00 Test Item Value Reference Range Interpretation Comments ANDIE SPECIES (test code = 61917) POSITIVE G. VAGINALIS (test code = 05418) NEGATIVE T. VAGINALIS (test code = 27828) NEGATIVE VAGINAL PATHOGENS DNA [id number] 00:00:00 Test Item Value Reference Range Interpretation Comments ANDIE SPECIES (test code = 24436) POSITIVE G. VAGINALIS (test code = 81116) NEGATIVE T. VAGINALIS (test code = 35006) NEGATIVE VAGINAL PATHOGENS DNA [id number] 00:00:00 Test Item Value Reference Range Interpretation Comments ANDIE SPECIES (test code = 69729) POSITIVE G. VAGINALIS (test code = 19739) NEGATIVE T. VAGINALIS (test code = 09709) NEGATIVE VAGINAL PATHOGENS DNA [id number] 00:00:00 Test Item Value Reference Range Interpretation Comments ANDIE SPECIES (test code = 32361) POSITIVE G. VAGINALIS (test code = 30354) NEGATIVE T. VAGINALIS (test code = 50053) NEGATIVE VAGINAL PATHOGENS DNA [id number] 00:00:00 Test Item Value Reference Range Interpretation Comments ANDIE SPECIES (test code = 43108) NEGATIVE G. VAGINALIS (test code = 29414) NEGATIVE T. VAGINALIS (test code = 02536) NEGATIVE VAGINAL PATHOGENS DNA [id number] 00:00:00 Test Item Value Reference Range Interpretation Comments ANDIE SPECIES (test code = 21832) NEGATIVE G. VAGINALIS (test code = 90339) NEGATIVE T. VAGINALIS (test code = 00794) NEGATIVE VAGINAL PATHOGENS DNA [id number] 00:00:00 Test Item Value Reference Range Interpretation Comments ANDIE SPECIES (test code = 32510) NEGATIVE G. VAGINALIS (test code = 93589) NEGATIVE T. VAGINALIS (test code = 08413) NEGATIVE VAGINAL PATHOGENS DNA [id number] 00:00:00 Test Item Value Reference Range Interpretation Comments ANDIE SPECIES (test code = 65323) NEGATIVE G. VAGINALIS (test code = 60151) NEGATIVE T. VAGINALIS (test code = 42390) NEGATIVE VAGINAL PATHOGENS DNA [id number] 00:00:00 Test Item Value Reference Range Interpretation Comments ANDIE SPECIES (test code = 14060) NEGATIVE G. VAGINALIS (test code = 77379) NEGATIVE T. VAGINALIS (test code = 46517) NEGATIVE VAGINAL PATHOGENS DNA [id number] 00:00:00 Test Item Value Reference Range Interpretation Comments ANDIE SPECIES (test code = 76368) NEGATIVE G. VAGINALIS (test code = 33052) NEGATIVE T. VAGINALIS (test code = 90587) NEGATIVE VAGINAL PATHOGENS DNA [id number] 00:00:00 Test Item Value Reference Range Interpretation Comments ANDIE SPECIES (test code = 61366) NEGATIVE G. VAGINALIS (test code = 98183) NEGATIVE T. VAGINALIS (test code = 90586) NEGATIVE VAGINAL PATHOGENS DNA [id number] 00:00:00 Test Item Value Reference Range Interpretation Comments ANDIE SPECIES (test code = 57496) NEGATIVE G. VAGINALIS (test code = 19863) NEGATIVE T. VAGINALIS (test code = 04765) NEGATIVE VAGINAL PATHOGENS DNA [id number] 00:00:00 Test Item Value Reference Range Interpretation Comments ANDIE SPECIES (test code = 56375) NEGATIVE G. VAGINALIS (test code = 45496) NEGATIVE T. VAGINALIS (test code = 63315) NEGATIVE VAGINAL PATHOGENS DNA [id number] 00:00:00 Test Item Value Reference Range Interpretation Comments ANDIE SPECIES (test code = 14672) NEGATIVE G. VAGINALIS (test code = 57895) NEGATIVE T. VAGINALIS (test code = 46877) NEGATIVE VAGINAL PATHOGENS DNA [id number] 00:00:00 Test Item Value Reference Range Interpretation Comments ANDIE SPECIES (test code = 85721) NEGATIVE G. VAGINALIS (test code = 54912) NEGATIVE T. VAGINALIS (test code = 55212) NEGATIVE VAGINAL PATHOGENS DNA [id number] 00:00:00 Test Item Value Reference Range Interpretation Comments ANDIE SPECIES (test code = 32533) NEGATIVE G. VAGINALIS (test code = 41547) NEGATIVE T. VAGINALIS (test code = 37772) NEGATIVE VAGINAL PATHOGENS DNA [id number] 00:00:00 Test Item Value Reference Range Interpretation Comments ANDIE SPECIES (test code = 12448) NEGATIVE G. VAGINALIS (test code = 52568) NEGATIVE T. VAGINALIS (test code = 61742) NEGATIVE VAGINAL PATHOGENS DNA [id number] 00:00:00 Test Item Value Reference Range Interpretation Comments ANDIE SPECIES (test code = 92349) NEGATIVE G. VAGINALIS (test code = 23847) NEGATIVE T. VAGINALIS (test code = ) NEGATIVE VAGINAL PATHOGENS DNA [id number] 00:00:00 Test Item Value Reference Range Interpretation Comments ANDIE SPECIES (test code = 28363) NEGATIVE G. VAGINALIS (test code = 93276) NEGATIVE T. VAGINALIS (test code = 87852) NEGATIVE VAGINAL PATHOGENS DNA [id number] 00:00:00 Test Item Value Reference Range Interpretation Comments ANDIE SPECIES (test code = 01223) NEGATIVE G. VAGINALIS (test code = 06838) NEGATIVE T. VAGINALIS (test code = 44090) NEGATIVE VAGINAL PATHOGENS DNA [id number] 00:00:00 Test Item Value Reference Range Interpretation Comments ANDIE SPECIES (test code = 43475) NEGATIVE G. VAGINALIS (test code = 92006) NEGATIVE T. VAGINALIS (test code = 95757) NEGATIVE VAGINAL PATHOGENS DNA [id number] 00:00:00 Test Item Value Reference Range Interpretation Comments ANDIE SPECIES (test code = 11568) NEGATIVE G. VAGINALIS (test code = 47049) NEGATIVE T. VAGINALIS (test code = 81164) NEGATIVE VAGINAL PATHOGENS DNA [id number] 00:00:00 Test Item Value Reference Range Interpretation Comments ANDIE SPECIES (test code = 66934) NEGATIVE G. VAGINALIS (test code = 75071) NEGATIVE T. VAGINALIS (test code = 38995) NEGATIVE VAGINAL PATHOGENS DNA [id number] 00:00:00 Test Item Value Reference Range Interpretation Comments ANDIE SPECIES (test code = 55401) NEGATIVE G. VAGINALIS (test code = 75741) NEGATIVE T. VAGINALIS (test code = 18810) NEGATIVE VAGINAL PATHOGENS DNA [id number] 00:00:00 Test Item Value Reference Range Interpretation Comments ANDIE SPECIES (test code = 15169) NEGATIVE G. VAGINALIS (test code = 58219) NEGATIVE T. VAGINALIS (test code = 26289) NEGATIVE VAGINAL PATHOGENS DNA [id number] 00:00:00 Test Item Value Reference Range Interpretation Comments ANDIE SPECIES (test code = 18364) NEGATIVE G. VAGINALIS (test code = 97080) POSITIVE T. VAGINALIS (test code = 64946) NEGATIVE VAGINAL PATHOGENS DNA [id number] 00:00:00 Test Item Value Reference Range Interpretation Comments ANDIE SPECIES (test code = 34648) NEGATIVE G. VAGINALIS (test code = 82410) POSITIVE T. VAGINALIS (test code = 67497) NEGATIVE VAGINAL PATHOGENS DNA [id number] 00:00:00 Test Item Value Reference Range Interpretation Comments ANDIE SPECIES (test code = 88766) NEGATIVE G. VAGINALIS (test code = 72021) POSITIVE T. VAGINALIS (test code = 63002) NEGATIVE VAGINAL PATHOGENS DNA [id number] 00:00:00 Test Item Value Reference Range Interpretation Comments ANDIE SPECIES (test code = 23658) NEGATIVE G. VAGINALIS (test code = 50645) POSITIVE T. VAGINALIS (test code = 71555) NEGATIVE VAGINAL PATHOGENS DNA [id number] 00:00:00 Test Item Value Reference Range Interpretation Comments ANDIE SPECIES (test code = 91409) NEGATIVE G. VAGINALIS (test code = 00788) POSITIVE T. VAGINALIS (test code = 92758) NEGATIVE VAGINAL PATHOGENS DNA [id number] 00:00:00 Test Item Value Reference Range Interpretation Comments ANDIE SPECIES (test code = 94469) NEGATIVE G. VAGINALIS (test code = 05556) POSITIVE T. VAGINALIS (test code = 38235) NEGATIVE VAGINAL PATHOGENS DNA [id number] 00:00:00 Test Item Value Reference Range Interpretation Comments ANDIE SPECIES (test code = 66955) NEGATIVE G. VAGINALIS (test code = 68804) POSITIVE T. VAGINALIS (test code = 25945) NEGATIVE VAGINAL PATHOGENS DNA [id number] 00:00:00 Test Item Value Reference Range Interpretation Comments ANDIE SPECIES (test code = 30591) NEGATIVE G. VAGINALIS (test code = 18018) POSITIVE T. VAGINALIS (test code = 20383) NEGATIVE VAGINAL PATHOGENS DNA [id number] 00:00:00 Test Item Value Reference Range Interpretation Comments ANDIE SPECIES (test code = 33380) NEGATIVE G. VAGINALIS (test code = 61777) POSITIVE T. VAGINALIS (test code = 98639) NEGATIVE VAGINAL PATHOGENS DNA [id number] 00:00:00 Test Item Value Reference Range Interpretation Comments ANDIE SPECIES (test code = 87259) NEGATIVE G. VAGINALIS (test code = 57238) POSITIVE T. VAGINALIS (test code = 15415) NEGATIVE VAGINAL PATHOGENS DNA [id number] 00:00:00 Test Item Value Reference Range Interpretation Comments ANDIE SPECIES (test code = 93428) NEGATIVE G. VAGINALIS (test code = 26113) POSITIVE T. VAGINALIS (test code = 37608) NEGATIVE VAGINAL PATHOGENS DNA [id number] 00:00:00 Test Item Value Reference Range Interpretation Comments ANDIE SPECIES (test code = 20109) NEGATIVE G. VAGINALIS (test code = 87302) POSITIVE T. VAGINALIS (test code = 86164) NEGATIVE VAGINAL PATHOGENS DNA [id number] 00:00:00 Test Item Value Reference Range Interpretation Comments ANDIE SPECIES (test code = 16886) NEGATIVE G. VAGINALIS (test code = 23708) POSITIVE T. VAGINALIS (test code = 27949) NEGATIVE VAGINAL PATHOGENS DNA [id number] 00:00:00 Test Item Value Reference Range Interpretation Comments ANDIE SPECIES (test code = 61613) NEGATIVE G. VAGINALIS (test code = 99565) POSITIVE T. VAGINALIS (test code = 16606) NEGATIVE VAGINAL PATHOGENS DNA [id number] 00:00:00 Test Item Value Reference Range Interpretation Comments ANDIE SPECIES (test code = 17627) NEGATIVE G. VAGINALIS (test code = 27292) POSITIVE T. VAGINALIS (test code = 88643) NEGATIVE VAGINAL PATHOGENS DNA [id number] 00:00:00 Test Item Value Reference Range Interpretation Comments ANDIE SPECIES (test code = 05792) NEGATIVE G. VAGINALIS (test code = 00017) POSITIVE T. VAGINALIS (test code = 47060) NEGATIVE VAGINAL PATHOGENS DNA [id number] 00:00:00 Test Item Value Reference Range Interpretation Comments ANDIE SPECIES (test code = 24951) NEGATIVE G. VAGINALIS (test code = 21940) POSITIVE T. VAGINALIS (test code = 26521) NEGATIVE VAGINAL PATHOGENS DNA [id number] 00:00:00 Test Item Value Reference Range Interpretation Comments ANDIE SPECIES (test code = 75961) NEGATIVE G. VAGINALIS (test code = 26312) POSITIVE T. VAGINALIS (test code = 58583) NEGATIVE VAGINAL PATHOGENS DNA [id number] 00:00:00 Test Item Value Reference Range Interpretation Comments ANDIE SPECIES (test code = 82361) NEGATIVE G. VAGINALIS (test code = 00050) POSITIVE T. VAGINALIS (test code = 50718) NEGATIVE VAGINAL PATHOGENS DNA [id number] 00:00:00 Test Item Value Reference Range Interpretation Comments ANDIE SPECIES (test code = 40929) NEGATIVE G. VAGINALIS (test code = ) POSITIVE T. VAGINALIS (test code = ) NEGATIVE VAGINAL PATHOGENS DNA [id number] 00:00:00 Test Item Value Reference Range Interpretation Comments ANDIE SPECIES (test code = ) NEGATIVE G. VAGINALIS (test code = ) POSITIVE T. VAGINALIS (test code = ) NEGATIVE COMPREHENSIVE METABOLIC [id number] 00:00:00 Test Item Value Reference Range Interpretation Comments GLUCOSE (test code = 2217) 353 MG/DL BUN (test code = 2208) 27 MG/DL CREATININE (test code = 2214) 0.90 MG/DL eGFR AMER. (test code 92 ML/MIN/1.73 = 45845) eGFR NON- AMER. (test 79 ML/MIN/1.73 code = 90230) CALC BUN/CREAT (test code = 30 RATIO [...] code = 2219) 18 U/L COMPREHENSIVE METABOLIC [id number] 00:00:00 Test Item Value Reference Range Interpretation Comments GLUCOSE (test code = 2217) 353 MG/DL BUN (test code = 2208) 27 MG/DL CREATININE (test code = 2214) 0.90 MG/DL eGFR AMER. (test code 92 ML/MIN/1.73 = 26571) eGFR NON- AMER. (test 79 ML/MIN/1.73 code = 44716) CALC BUN/CREAT (test code = 30 RATIO [...] (test code = 2219) 18 U/L LIPID [id number] 00:00:00 Test Item Value Reference Range Interpretation Comments CHOLESTEROL (test code = 2210) 412 MG/DL TRIGLYCERIDES (test code = 2232) 2520 MG/DL HDL CHOLESTEROL (test code = 16 MG/DL 2220) CALC LDL CHOL (test code = 2237) NOTE MG/DL RISK RATIO LDL/HDL (test code = (NOTE) RATIO 2238) LIPID [id number] 00:00:00 Test Item Value Reference Range Interpretation Comments CHOLESTEROL (test code = 2210) 412 MG/DL TRIGLYCERIDES (test code = 2232) 2520 MG/DL HDL CHOLESTEROL (test code = 16 MG/DL 2220) CALC LDL CHOL (test code = 2237) NOTE MG/DL RISK RATIO LDL/HDL (test code = (NOTE) RATIO 2238) HEMOGLOBIN [id number] 00:00:00 Test Item Value Reference Range Interpretation Comments HEMOGLOBIN A1c (test code = 30106) 10.7 % HEMOGLOBIN [id number] 00:00:00 Test Item Value Reference Range Interpretation Comments HEMOGLOBIN A1c (test code = 74096) 10.7 % HEMOGLOBIN [id number] 00:00:00 Test Item Value Reference Range Interpretation Comments HEMOGLOBIN A1c (test code = 11805) 10.7 % [id number] 00:00:00 Test Item Value Reference Range Interpretation Comments TSH, THIRD GENERATION (test code 0.777 UIU/ML = 2821) [id number] 00:00:00 Test Item Value Reference Range Interpretation Comments TSH, THIRD GENERATION (test code 0.777 UIU/ML = 2821) [id number] 00:00:00 Test Item Value Reference Range Interpretation Comments TSH, THIRD GENERATION (test code 0.777 UIU/ML = 2821) MICROALBUMIN/CREATININE, RANDOM AND [id number] 00:00:00 Test Item Value Reference Range Interpretation Comments CREATININE, URINE, CONC. (test 127.3 MG/DL code = 2072) ALBUMIN, URINE, RANDOM (test code 65.2 MG/DL = 09866) CALC ALBUMIN/CREAT, RND (test 512 MG/G code = 33456) MICROALBUMIN/CREATININE, RANDOM AND [id number] 00:00:00 Test Item Value Reference Range Interpretation Comments CREATININE, URINE, CONC. (test 127.3 MG/DL code = 2072) ALBUMIN, URINE, RANDOM (test code 65.2 MG/DL = 96966) CALC ALBUMIN/CREAT, RND (test 512 MG/G code = 64985) COMPREHENSIVE METABOLIC [id number] 00:00:00 Test Item Value Reference Range Interpretation Comments GLUCOSE (test code = 2217) 353 MG/DL BUN (test code = 2208) 27 MG/DL CREATININE (test code = 2214) 0.90 MG/DL eGFR AMER. (test code 92 ML/MIN/1.73 = 09687) eGFR NON- AMER. (test 79 ML/MIN/1.73 code = 62887) CALC BUN/CREAT (test code = 30 RATIO [...] code = 2219) 18 U/L COMPREHENSIVE METABOLIC [id number] 00:00:00 Test Item Value Reference Range Interpretation Comments GLUCOSE (test code = 2217) 353 MG/DL BUN (test code = 2208) 27 MG/DL CREATININE (test code = 2214) 0.90 MG/DL eGFR AMER. (test code 92 ML/MIN/1.73 = 29197) eGFR NON- AMER. (test 79 ML/MIN/1.73 code = 10031) CALC BUN/CREAT (test code = 30 RATIO [...] (test code = 2219) 18 U/L LIPID [id number] 00:00:00 Test Item Value Reference Range Interpretation Comments CHOLESTEROL (test code = 2210) 412 MG/DL TRIGLYCERIDES (test code = 2232) 2520 MG/DL HDL CHOLESTEROL (test code = 16 MG/DL 2220) CALC LDL CHOL (test code = 2237) NOTE MG/DL RISK RATIO LDL/HDL (test code = (NOTE) RATIO 2238) LIPID [id number] 00:00:00 Test Item Value Reference Range Interpretation Comments CHOLESTEROL (test code = 2210) 412 MG/DL TRIGLYCERIDES (test code = 2232) 2520 MG/DL HDL CHOLESTEROL (test code = 16 MG/DL 2220) CALC LDL CHOL (test code = 2237) NOTE MG/DL RISK RATIO LDL/HDL (test code = (NOTE) RATIO 2238) HEMOGLOBIN [id number] 00:00:00 Test Item Value Reference Range Interpretation Comments HEMOGLOBIN A1c (test code = 14732) 10.7 % HEMOGLOBIN [id number] 00:00:00 Test Item Value Reference Range Interpretation Comments HEMOGLOBIN A1c (test code = 97228) 10.7 % HEMOGLOBIN [id number] 00:00:00 Test Item Value Reference Range Interpretation Comments HEMOGLOBIN A1c (test code = 73398) 10.7 % [id number] 00:00:00 Test Item Value Reference Range Interpretation Comments TSH, THIRD GENERATION (test code 0.777 UIU/ML = 2821) [id number] 00:00:00 Test Item Value Reference Range Interpretation Comments TSH, THIRD GENERATION (test code 0.777 UIU/ML = 2821) [id number] 00:00:00 Test Item Value Reference Range Interpretation Comments TSH, THIRD GENERATION (test code 0.777 UIU/ML = 2821) MICROALBUMIN/CREATININE, RANDOM AND [id number] 00:00:00 Test Item Value Reference Range Interpretation Comments CREATININE, URINE, CONC. (test 127.3 MG/DL code = 2072) ALBUMIN, URINE, RANDOM (test code 65.2 MG/DL = 25023) CALC ALBUMIN/CREAT, RND (test 512 MG/G code = 69549) MICROALBUMIN/CREATININE, RANDOM AND [id number] 00:00:00 Test Item Value Reference Range Interpretation Comments CREATININE, URINE, CONC. (test 127.3 MG/DL code = 2072) ALBUMIN, URINE, RANDOM (test code 65.2 MG/DL = 17943) CALC ALBUMIN/CREAT, RND (test 512 MG/G code = 04455) COMPREHENSIVE METABOLIC [id number] 00:00:00 Test Item Value Reference Range Interpretation Comments GLUCOSE (test code = 2217) 353 MG/DL BUN (test code = 2208) 27 MG/DL CREATININE (test code = 2214) 0.90 MG/DL eGFR AMER. (test code 92 ML/MIN/1.73 = 24759) eGFR NON- AMER. (test 79 ML/MIN/1.73 code = 57032) CALC BUN/CREAT (test code = 30 RATIO [...] code = 2219) 18 U/L COMPREHENSIVE METABOLIC [id number] 00:00:00 Test Item Value Reference Range Interpretation Comments GLUCOSE (test code = 2217) 353 MG/DL BUN (test code = 2208) 27 MG/DL CREATININE (test code = 2214) 0.90 MG/DL eGFR AMER. (test code 92 ML/MIN/1.73 = 26251) eGFR NON- AMER. (test 79 ML/MIN/1.73 code = 83559) CALC BUN/CREAT (test code = 30 RATIO [...] (test code = 2219) 18 U/L LIPID [id number] 00:00:00 Test Item Value Reference Range Interpretation Comments CHOLESTEROL (test code = 2210) 412 MG/DL TRIGLYCERIDES (test code = 2232) 2520 MG/DL HDL CHOLESTEROL (test code = 16 MG/DL 2220) CALC LDL CHOL (test code = 2237) NOTE MG/DL RISK RATIO LDL/HDL (test code = (NOTE) RATIO 2238) LIPID [id number] 00:00:00 Test Item Value Reference Range Interpretation Comments CHOLESTEROL (test code = 2210) 412 MG/DL TRIGLYCERIDES (test code = 2232) 2520 MG/DL HDL CHOLESTEROL (test code = 16 MG/DL 2220) CALC LDL CHOL (test code = 2237) NOTE MG/DL RISK RATIO LDL/HDL (test code = (NOTE) RATIO 2238) HEMOGLOBIN [id number] 00:00:00 Test Item Value Reference Range Interpretation Comments HEMOGLOBIN A1c (test code = 42598) 10.7 % HEMOGLOBIN [id number] 00:00:00 Test Item Value Reference Range Interpretation Comments HEMOGLOBIN A1c (test code = 75954) 10.7 % HEMOGLOBIN [id number] 00:00:00 Test Item Value Reference Range Interpretation Comments HEMOGLOBIN A1c (test code = 31386) 10.7 % [id number] 00:00:00 Test Item Value Reference Range Interpretation Comments TSH, THIRD GENERATION (test code 0.777 UIU/ML = 2821) [id number] 00:00:00 Test Item Value Reference Range Interpretation Comments TSH, THIRD GENERATION (test code 0.777 UIU/ML = 2821) [id number] 00:00:00 Test Item Value Reference Range Interpretation Comments TSH, THIRD GENERATION (test code 0.777 UIU/ML = 2821) MICROALBUMIN/CREATININE, RANDOM AND [id number] 00:00:00 Test Item Value Reference Range Interpretation Comments CREATININE, URINE, CONC. (test 127.3 MG/DL code = 2072) ALBUMIN, URINE, RANDOM (test code 65.2 MG/DL = 82629) CALC ALBUMIN/CREAT, RND (test 512 MG/G code = 51025) MICROALBUMIN/CREATININE, RANDOM AND [id number] 00:00:00 Test Item Value Reference Range Interpretation Comments CREATININE, URINE, CONC. (test 127.3 MG/DL code = 2072) ALBUMIN, URINE, RANDOM (test code 65.2 MG/DL = 66452) CALC ALBUMIN/CREAT, RND (test 512 MG/G code = 32945) COMPREHENSIVE METABOLIC [id number] 00:00:00 Test Item Value Reference Range Interpretation Comments GLUCOSE (test code = 2217) 353 MG/DL BUN (test code = 2208) 27 MG/DL CREATININE (test code = 2214) 0.90 MG/DL eGFR AMER. (test code 92 ML/MIN/1.73 = 36869) eGFR NON- AMER. (test 79 ML/MIN/1.73 code = 35713) CALC BUN/CREAT (test code = 30 RATIO [...] code = 2219) 18 U/L COMPREHENSIVE METABOLIC [id number] 00:00:00 Test Item Value Reference Range Interpretation Comments GLUCOSE (test code = 2217) 353 MG/DL BUN (test code = 2208) 27 MG/DL CREATININE (test code = 2214) 0.90 MG/DL eGFR AMER. (test code 92 ML/MIN/1.73 = 83977) eGFR NON- AMER. (test 79 ML/MIN/1.73 code = 87615) CALC BUN/CREAT (test code = 30 RATIO [...] (test code = 2219) 18 U/L LIPID [id number] 00:00:00 Test Item Value Reference Range Interpretation Comments CHOLESTEROL (test code = 2210) 412 MG/DL TRIGLYCERIDES (test code = 2232) 2520 MG/DL HDL CHOLESTEROL (test code = 16 MG/DL 2220) CALC LDL CHOL (test code = 2237) NOTE MG/DL RISK RATIO LDL/HDL (test code = (NOTE) RATIO 2238) LIPID [id number] 00:00:00 Test Item Value Reference Range Interpretation Comments CHOLESTEROL (test code = 2210) 412 MG/DL TRIGLYCERIDES (test code = 2232) 2520 MG/DL HDL CHOLESTEROL (test code = 16 MG/DL 2220) CALC LDL CHOL (test code = 2237) NOTE MG/DL RISK RATIO LDL/HDL (test code = (NOTE) RATIO 2238) HEMOGLOBIN [id number] 00:00:00 Test Item Value Reference Range Interpretation Comments HEMOGLOBIN A1c (test code = 15912) 10.7 % HEMOGLOBIN [id number] 00:00:00 Test Item Value Reference Range Interpretation Comments HEMOGLOBIN A1c (test code = 14042) 10.7 % HEMOGLOBIN [id number] 00:00:00 Test Item Value Reference Range Interpretation Comments HEMOGLOBIN A1c (test code = 21869) 10.7 % [id number] 00:00:00 Test Item Value Reference Range Interpretation Comments TSH, THIRD GENERATION (test code 0.777 UIU/ML = 2821) [id number] 00:00:00 Test Item Value Reference Range Interpretation Comments TSH, THIRD GENERATION (test code 0.777 UIU/ML = 2821) [id number] 00:00:00 Test Item Value Reference Range Interpretation Comments TSH, THIRD GENERATION (test code 0.777 UIU/ML = 2821) MICROALBUMIN/CREATININE, RANDOM AND [id number] 00:00:00 Test Item Value Reference Range Interpretation Comments CREATININE, URINE, CONC. (test 127.3 MG/DL code = 2072) ALBUMIN, URINE, RANDOM (test code 65.2 MG/DL = 94375) CALC ALBUMIN/CREAT, RND (test 512 MG/G code = 43780) MICROALBUMIN/CREATININE, RANDOM AND [id number] 00:00:00 Test Item Value Reference Range Interpretation Comments CREATININE, URINE, CONC. (test 127.3 MG/DL code = 2072) ALBUMIN, URINE, RANDOM (test code 65.2 MG/DL = 92235) CALC ALBUMIN/CREAT, RND (test 512 MG/G code = 63134) COMPREHENSIVE METABOLIC [id number] 00:00:00 Test Item Value Reference Range Interpretation Comments GLUCOSE (test code = 2217) 353 MG/DL BUN (test code = 2208) 27 MG/DL CREATININE (test code = 2214) 0.90 MG/DL eGFR AMER. (test code 92 ML/MIN/1.73 = 86044) eGFR NON- AMER. (test 79 ML/MIN/1.73 code = 50817) CALC BUN/CREAT (test code = 30 RATIO [...] code = 2219) 18 U/L COMPREHENSIVE METABOLIC [id number] 00:00:00 Test Item Value Reference Range Interpretation Comments GLUCOSE (test code = 2217) 353 MG/DL BUN (test code = 2208) 27 MG/DL CREATININE (test code = 2214) 0.90 MG/DL eGFR AMER. (test code 92 ML/MIN/1.73 = 65292) eGFR NON- AMER. (test 79 ML/MIN/1.73 code = 58182) CALC BUN/CREAT (test code = 30 RATIO [...] (test code = 2219) 18 U/L LIPID [id number] 00:00:00 Test Item Value Reference Range Interpretation Comments CHOLESTEROL (test code = 2210) 412 MG/DL TRIGLYCERIDES (test code = 2232) 2520 MG/DL HDL CHOLESTEROL (test code = 16 MG/DL 2220) CALC LDL CHOL (test code = 2237) NOTE MG/DL RISK RATIO LDL/HDL (test code = (NOTE) RATIO 2238) LIPID [id number] 00:00:00 Test Item Value Reference Range Interpretation Comments CHOLESTEROL (test code = 2210) 412 MG/DL TRIGLYCERIDES (test code = 2232) 2520 MG/DL HDL CHOLESTEROL (test code = 16 MG/DL 2220) CALC LDL CHOL (test code = 2237) NOTE MG/DL RISK RATIO LDL/HDL (test code = (NOTE) RATIO 2238) HEMOGLOBIN [id number] 00:00:00 Test Item Value Reference Range Interpretation Comments HEMOGLOBIN A1c (test code = 60005) 10.7 % HEMOGLOBIN [id number] 00:00:00 Test Item Value Reference Range Interpretation Comments HEMOGLOBIN A1c (test code = 97472) 10.7 % HEMOGLOBIN [id number] 00:00:00 Test Item Value Reference Range Interpretation Comments HEMOGLOBIN A1c (test code = 58028) 10.7 % [id number] 00:00:00 Test Item Value Reference Range Interpretation Comments TSH, THIRD GENERATION (test code 0.777 UIU/ML = 2821) [id number] 00:00:00 Test Item Value Reference Range Interpretation Comments TSH, THIRD GENERATION (test code 0.777 UIU/ML = 2821) [id number] 00:00:00 Test Item Value Reference Range Interpretation Comments TSH, THIRD GENERATION (test code 0.777 UIU/ML = 2821) MICROALBUMIN/CREATININE, RANDOM AND [id number] 00:00:00 Test Item Value Reference Range Interpretation Comments CREATININE, URINE, CONC. (test 127.3 MG/DL code = 2072) ALBUMIN, URINE, RANDOM (test code 65.2 MG/DL = 17755) CALC ALBUMIN/CREAT, RND (test 512 MG/G code = 81667) MICROALBUMIN/CREATININE, RANDOM AND [id number] 00:00:00 Test Item Value Reference Range Interpretation Comments CREATININE, URINE, CONC. (test 127.3 MG/DL code = 2072) ALBUMIN, URINE, RANDOM (test code 65.2 MG/DL = 26736) CALC ALBUMIN/CREAT, RND (test 512 MG/G code = 19809) COMPREHENSIVE METABOLIC [id number] 00:00:00 Test Item Value Reference Range Interpretation Comments GLUCOSE (test code = 2217) 353 MG/DL BUN (test code = 2208) 27 MG/DL CREATININE (test code = 2214) 0.90 MG/DL eGFR AMER. (test code 92 ML/MIN/1.73 = 77599) eGFR NON- AMER. (test 79 ML/MIN/1.73 code = 07466) CALC BUN/CREAT (test code = 30 RATIO [...] code = 2219) 18 U/L COMPREHENSIVE METABOLIC [id number] 00:00:00 Test Item Value Reference Range Interpretation Comments GLUCOSE (test code = 2217) 353 MG/DL BUN (test code = 2208) 27 MG/DL CREATININE (test code = 2214) 0.90 MG/DL eGFR AMER. (test code 92 ML/MIN/1.73 = 54348) eGFR NON- AMER. (test 79 ML/MIN/1.73 code = 36161) CALC BUN/CREAT (test code = 30 RATIO [...] (test code = 2219) 18 U/L LIPID [id number] 00:00:00 Test Item Value Reference Range Interpretation Comments CHOLESTEROL (test code = 2210) 412 MG/DL TRIGLYCERIDES (test code = 2232) 2520 MG/DL HDL CHOLESTEROL (test code = 16 MG/DL 2220) CALC LDL CHOL (test code = 2237) NOTE MG/DL RISK RATIO LDL/HDL (test code = (NOTE) RATIO 2238) LIPID [id number] 00:00:00 Test Item Value Reference Range Interpretation Comments CHOLESTEROL (test code = 2210) 412 MG/DL TRIGLYCERIDES (test code = 2232) 2520 MG/DL HDL CHOLESTEROL (test code = 16 MG/DL 2220) CALC LDL CHOL (test code = 2237) NOTE MG/DL RISK RATIO LDL/HDL (test code = (NOTE) RATIO 2238) HEMOGLOBIN [id number] 00:00:00 Test Item Value Reference Range Interpretation Comments HEMOGLOBIN A1c (test code = 93653) 10.7 % HEMOGLOBIN [id number] 00:00:00 Test Item Value Reference Range Interpretation Comments HEMOGLOBIN A1c (test code = 76671) 10.7 % HEMOGLOBIN [id number] 00:00:00 Test Item Value Reference Range Interpretation Comments HEMOGLOBIN A1c (test code = 15487) 10.7 % [id number] 00:00:00 Test Item Value Reference Range Interpretation Comments TSH, THIRD GENERATION (test code 0.777 UIU/ML = 2821) [id number] 00:00:00 Test Item Value Reference Range Interpretation Comments TSH, THIRD GENERATION (test code 0.777 UIU/ML = 2821) [id number] 00:00:00 Test Item Value Reference Range Interpretation Comments TSH, THIRD GENERATION (test code 0.777 UIU/ML = 2821) MICROALBUMIN/CREATININE, RANDOM AND [id number] 00:00:00 Test Item Value Reference Range Interpretation Comments CREATININE, URINE, CONC. (test 127.3 MG/DL code = 2072) ALBUMIN, URINE, RANDOM (test code 65.2 MG/DL = 61263) CALC ALBUMIN/CREAT, RND (test 512 MG/G code = 27093) MICROALBUMIN/CREATININE, RANDOM AND [id number] 00:00:00 Test Item Value Reference Range Interpretation Comments CREATININE, URINE, CONC. (test 127.3 MG/DL code = 2072) ALBUMIN, URINE, RANDOM (test code 65.2 MG/DL = 28437) CALC ALBUMIN/CREAT, RND (test 512 MG/G code = 49904) COMPREHENSIVE METABOLIC [id number] 00:00:00 Test Item Value Reference Range Interpretation Comments GLUCOSE (test code = 2217) 353 MG/DL BUN (test code = 2208) 27 MG/DL CREATININE (test code = 2214) 0.90 MG/DL eGFR AMER. (test code 92 ML/MIN/1.73 = 24227) eGFR NON- AMER. (test 79 ML/MIN/1.73 code = 29549) CALC BUN/CREAT (test code = 30 RATIO [...] code = 2219) 18 U/L COMPREHENSIVE METABOLIC [id number] 00:00:00 Test Item Value Reference Range Interpretation Comments GLUCOSE (test code = 2217) 353 MG/DL BUN (test code = 2208) 27 MG/DL CREATININE (test code = 2214) 0.90 MG/DL eGFR AMER. (test code 92 ML/MIN/1.73 = 42146) eGFR NON- AMER. (test 79 ML/MIN/1.73 code = 58386) CALC BUN/CREAT (test code = 30 RATIO [...] (test code = 2219) 18 U/L LIPID [id number] 00:00:00 Test Item Value Reference Range Interpretation Comments CHOLESTEROL (test code = 2210) 412 MG/DL TRIGLYCERIDES (test code = 2232) 2520 MG/DL HDL CHOLESTEROL (test code = 16 MG/DL 2220) CALC LDL CHOL (test code = 2237) NOTE MG/DL RISK RATIO LDL/HDL (test code = (NOTE) RATIO 2238) LIPID [id number] 00:00:00 Test Item Value Reference Range Interpretation Comments CHOLESTEROL (test code = 2210) 412 MG/DL TRIGLYCERIDES (test code = 2232) 2520 MG/DL HDL CHOLESTEROL (test code = 16 MG/DL 2220) CALC LDL CHOL (test code = 2237) NOTE MG/DL RISK RATIO LDL/HDL (test code = (NOTE) RATIO 2238) HEMOGLOBIN [id number] 00:00:00 Test Item Value Reference Range Interpretation Comments HEMOGLOBIN A1c (test code = 05081) 10.7 % HEMOGLOBIN [id number] 00:00:00 Test Item Value Reference Range Interpretation Comments HEMOGLOBIN A1c (test code = 74929) 10.7 % COMPREHENSIVE METABOLIC [id number] 00:00:00 Test Item Value Reference Range Interpretation Comments GLUCOSE (test code = 2217) 353 MG/DL BUN (test code = 2208) 27 MG/DL CREATININE (test code = 2214) 0.90 MG/DL eGFR AMER. (test code 92 ML/MIN/1.73 = 26250) eGFR NON- AMER. (test 79 ML/MIN/1.73 code = 23462) CALC BUN/CREAT (test code = 30 RATIO [...] (test code = 2219) 18 U/L HEMOGLOBIN [id number] 00:00:00 Test Item Value Reference Range Interpretation Comments HEMOGLOBIN A1c (test code = 79384) 10.7 % [id number] 00:00:00 Test Item Value Reference Range Interpretation Comments TSH, THIRD GENERATION (test code 0.777 UIU/ML = 2821) [id number] 00:00:00 Test Item Value Reference Range Interpretation Comments TSH, THIRD GENERATION (test code 0.777 UIU/ML = 2821) [id number] 00:00:00 Test Item Value Reference Range Interpretation Comments TSH, THIRD GENERATION (test code 0.777 UIU/ML = 2821) MICROALBUMIN/CREATININE, RANDOM AND [id number] 00:00:00 Test Item Value Reference Range Interpretation Comments CREATININE, URINE, CONC. (test 127.3 MG/DL code = 2072) ALBUMIN, URINE, RANDOM (test code 65.2 MG/DL = 18279) CALC ALBUMIN/CREAT, RND (test 512 MG/G code = 19629) MICROALBUMIN/CREATININE, RANDOM AND [id number] 00:00:00 Test Item Value Reference Range Interpretation Comments CREATININE, URINE, CONC. (test 127.3 MG/DL code = 2072) ALBUMIN, URINE, RANDOM (test code 65.2 MG/DL = 67153) CALC ALBUMIN/CREAT, RND (test 512 MG/G code = 98627) LIPID [id number] 00:00:00 Test Item Value Reference Range Interpretation Comments CHOLESTEROL (test code = 2210) 412 MG/DL TRIGLYCERIDES (test code = 2232) 2520 MG/DL HDL CHOLESTEROL (test code = 16 MG/DL 2220) CALC LDL CHOL (test code = 2237) NOTE MG/DL RISK RATIO LDL/HDL (test code = (NOTE) RATIO 2238) HEMOGLOBIN [id number] 00:00:00 Test Item Value Reference Range Interpretation Comments HEMOGLOBIN A1c (test code = 59989) 10.7 % HEMOGLOBIN [id number] 00:00:00 Test Item Value Reference Range Interpretation Comments HEMOGLOBIN A1c (test code = 59689) 10.7 % COMPREHENSIVE METABOLIC [id number] 00:00:00 Test Item Value Reference Range Interpretation Comments GLUCOSE (test code = 2217) 353 MG/DL BUN (test code = 2208) 27 MG/DL CREATININE (test code = 2214) 0.90 MG/DL eGFR AMER. (test code 92 ML/MIN/1.73 = 50619) eGFR NON- AMER. (test 79 ML/MIN/1.73 code = 40135) CALC BUN/CREAT (test code = 30 RATIO [...] code = 2219) 18 U/L COMPREHENSIVE METABOLIC [id number] 00:00:00 Test Item Value Reference Range Interpretation Comments GLUCOSE (test code = 2217) 353 MG/DL BUN (test code = 2208) 27 MG/DL CREATININE (test code = 2214) 0.90 MG/DL eGFR AMER. (test code 92 ML/MIN/1.73 = 30073) eGFR NON- AMER. (test 79 ML/MIN/1.73 code = 94255) CALC BUN/CREAT (test code = 30 RATIO [...] ALT (test code = 2219) 18 U/L [id number] 00:00:00 Test Item Value Reference Range Interpretation Comments TSH, THIRD GENERATION (test code 0.777 UIU/ML = 2821) LIPID [id number] 00:00:00 Test Item Value Reference Range Interpretation Comments CHOLESTEROL (test code = 2210) 412 MG/DL TRIGLYCERIDES (test code = 2232) 2520 MG/DL HDL CHOLESTEROL (test code = 16 MG/DL 2220) CALC LDL CHOL (test code = 2237) NOTE MG/DL RISK RATIO LDL/HDL (test code = (NOTE) RATIO 2238) [id number] 00:00:00 Test Item Value Reference Range Interpretation Comments TSH, THIRD GENERATION (test code 0.777 UIU/ML = 2821) LIPID [id number] 00:00:00 Test Item Value Reference Range Interpretation Comments CHOLESTEROL (test code = 2210) 412 MG/DL TRIGLYCERIDES (test code = 2232) 2520 MG/DL HDL CHOLESTEROL (test code = 16 MG/DL 2220) CALC LDL CHOL (test code = 2237) NOTE MG/DL RISK RATIO LDL/HDL (test code = (NOTE) RATIO 2238) HEMOGLOBIN [id number] 00:00:00 Test Item Value Reference Range Interpretation Comments HEMOGLOBIN A1c (test code = 53164) 10.7 % HEMOGLOBIN [id number] 00:00:00 Test Item Value Reference Range Interpretation Comments HEMOGLOBIN A1c (test code = 46178) 10.7 % HEMOGLOBIN [id number] 00:00:00 Test Item Value Reference Range Interpretation Comments HEMOGLOBIN A1c (test code = 06463) 10.7 % [id number] 00:00:00 Test Item Value Reference Range Interpretation Comments TSH, THIRD GENERATION (test code 0.777 UIU/ML = 2821) [id number] 00:00:00 Test Item Value Reference Range Interpretation Comments TSH, THIRD GENERATION (test code 0.777 UIU/ML = 2821) MICROALBUMIN/CREATININE, RANDOM AND [id number] 00:00:00 Test Item Value Reference Range Interpretation Comments CREATININE, URINE, CONC. (test 127.3 MG/DL code = 2072) ALBUMIN, URINE, RANDOM (test code 65.2 MG/DL = 36481) CALC ALBUMIN/CREAT, RND (test 512 MG/G code = 27612) [id number] 00:00:00 Test Item Value Reference Range Interpretation Comments TSH, THIRD GENERATION (test code 0.777 UIU/ML = 2821) MICROALBUMIN/CREATININE, RANDOM AND [id number] 00:00:00 Test Item Value Reference Range Interpretation Comments CREATININE, URINE, CONC. (test 127.3 MG/DL code = 2072) ALBUMIN, URINE, RANDOM (test code 65.2 MG/DL = 55567) CALC ALBUMIN/CREAT, RND (test 512 MG/G code = 30813) MICROALBUMIN/CREATININE, RANDOM AND [id number] 00:00:00 Test Item Value Reference Range Interpretation Comments CREATININE, URINE, CONC. (test 127.3 MG/DL code = 2072) ALBUMIN, URINE, RANDOM (test code 65.2 MG/DL = 04620) CALC ALBUMIN/CREAT, RND (test 512 MG/G code = 86800) COMPREHENSIVE METABOLIC [id number] 00:00:00 Test Item Value Reference Range Interpretation Comments GLUCOSE (test code = 2217) 353 MG/DL BUN (test code = 2208) 27 MG/DL CREATININE (test code = 2214) 0.90 MG/DL eGFR AMER. (test code 92 ML/MIN/1.73 = 80922) eGFR NON- AMER. (test 79 ML/MIN/1.73 code = 39700) CALC BUN/CREAT (test code = 30 RATIO [...] code = 2219) 18 U/L COMPREHENSIVE METABOLIC [id number] 00:00:00 Test Item Value Reference Range Interpretation Comments GLUCOSE (test code = 2217) 353 MG/DL BUN (test code = 2208) 27 MG/DL CREATININE (test code = 2214) 0.90 MG/DL eGFR AMER. (test code 92 ML/MIN/1.73 = 77633) eGFR NON- AMER. (test 79 ML/MIN/1.73 code = 59109) CALC BUN/CREAT (test code = 30 RATIO [...] (test code = 2219) 18 U/L LIPID [id number] 00:00:00 Test Item Value Reference Range Interpretation Comments CHOLESTEROL (test code = 2210) 412 MG/DL TRIGLYCERIDES (test code = 2232) 2520 MG/DL HDL CHOLESTEROL (test code = 16 MG/DL 2219) CALC LDL CHOL (test code = 2237) NOTE MG/DL RISK RATIO LDL/HDL (test code = (NOTE) RATIO 2238) LIPID [id number] 00:00:00 Test Item Value Reference Range Interpretation Comments CHOLESTEROL (test code = 2210) 412 MG/DL TRIGLYCERIDES (test code = 2232) 2520 MG/DL HDL CHOLESTEROL (test code = 16 MG/DL 2220) CALC LDL CHOL (test code = 2237) NOTE MG/DL RISK RATIO LDL/HDL (test code = (NOTE) RATIO 2238) HEMOGLOBIN [id number] 00:00:00 Test Item Value Reference Range Interpretation Comments HEMOGLOBIN A1c (test code = 68675) 10.7 % HEMOGLOBIN [id number] 00:00:00 Test Item Value Reference Range Interpretation Comments HEMOGLOBIN A1c (test code = 95682) 10.7 % HEMOGLOBIN [id number] 00:00:00 Test Item Value Reference Range Interpretation Comments HEMOGLOBIN A1c (test code = 25689) 10.7 % [id number] 00:00:00 Test Item Value Reference Range Interpretation Comments TSH, THIRD GENERATION (test code 0.777 UIU/ML = 2821) [id number] 00:00:00 Test Item Value Reference Range Interpretation Comments TSH, THIRD GENERATION (test code 0.777 UIU/ML = 2821) [id number] 00:00:00 Test Item Value Reference Range Interpretation Comments TSH, THIRD GENERATION (test code 0.777 UIU/ML = 2821) MICROALBUMIN/CREATININE, RANDOM AND [id number] 00:00:00 Test Item Value Reference Range Interpretation Comments CREATININE, URINE, CONC. (test 127.3 MG/DL code = 2072) ALBUMIN, URINE, RANDOM (test code 65.2 MG/DL = 01411) CALC ALBUMIN/CREAT, RND (test 512 MG/G code = 53349) MICROALBUMIN/CREATININE, RANDOM AND [id number] 00:00:00 Test Item Value Reference Range Interpretation Comments CREATININE, URINE, CONC. (test 127.3 MG/DL code = 2072) ALBUMIN, URINE, RANDOM (test code 65.2 MG/DL = 76459) CALC ALBUMIN/CREAT, RND (test 512 MG/G code = 21684) COMPREHENSIVE METABOLIC [id number] 00:00:00 Test Item Value Reference Range Interpretation Comments GLUCOSE (test code = 2217) 353 MG/DL BUN (test code = 2208) 27 MG/DL CREATININE (test code = 2214) 0.90 MG/DL eGFR AMER. (test code 92 ML/MIN/1.73 = 57475) eGFR NON- AMER. (test 79 ML/MIN/1.73 code = 25928) CALC BUN/CREAT (test code = 30 RATIO [...] code = 2219) 18 U/L COMPREHENSIVE METABOLIC [id number] 00:00:00 Test Item Value Reference Range Interpretation Comments GLUCOSE (test code = 2217) 353 MG/DL BUN (test code = 2208) 27 MG/DL CREATININE (test code = 2214) 0.90 MG/DL eGFR AMER. (test code 92 ML/MIN/1.73 = 93050) eGFR NON- AMER. (test 79 ML/MIN/1.73 code = 03267) CALC BUN/CREAT (test code = 30 RATIO [...] (test code = 2219) 18 U/L LIPID [id number] 00:00:00 Test Item Value Reference Range Interpretation Comments CHOLESTEROL (test code = 2210) 412 MG/DL TRIGLYCERIDES (test code = 2232) 2520 MG/DL HDL CHOLESTEROL (test code = 16 MG/DL 2220) CALC LDL CHOL (test code = 2237) NOTE MG/DL RISK RATIO LDL/HDL (test code = (NOTE) RATIO 2238) LIPID [id number] 00:00:00 Test Item Value Reference Range Interpretation Comments CHOLESTEROL (test code = 2210) 412 MG/DL TRIGLYCERIDES (test code = 2232) 2520 MG/DL HDL CHOLESTEROL (test code = 16 MG/DL 2220) CALC LDL CHOL (test code = 2237) NOTE MG/DL RISK RATIO LDL/HDL (test code = (NOTE) RATIO 2238) HEMOGLOBIN [id number] 00:00:00 Test Item Value Reference Range Interpretation Comments HEMOGLOBIN A1c (test code = 91194) 10.7 % HEMOGLOBIN [id number] 00:00:00 Test Item Value Reference Range Interpretation Comments HEMOGLOBIN A1c (test code = 89994) 10.7 % HEMOGLOBIN [id number] 00:00:00 Test Item Value Reference Range Interpretation Comments HEMOGLOBIN A1c (test code = 67262) 10.7 % [id number] 00:00:00 Test Item Value Reference Range Interpretation Comments TSH, THIRD GENERATION (test code 0.777 UIU/ML = 2821) [id number] 00:00:00 Test Item Value Reference Range Interpretation Comments TSH, THIRD GENERATION (test code 0.777 UIU/ML = 2821) [id number] 00:00:00 Test Item Value Reference Range Interpretation Comments TSH, THIRD GENERATION (test code 0.777 UIU/ML = 2821) MICROALBUMIN/CREATININE, RANDOM AND [id number] 00:00:00 Test Item Value Reference Range Interpretation Comments CREATININE, URINE, CONC. (test 127.3 MG/DL code = 2072) ALBUMIN, URINE, RANDOM (test code 65.2 MG/DL = 80561) CALC ALBUMIN/CREAT, RND (test 512 MG/G code = 09194) MICROALBUMIN/CREATININE, RANDOM AND [id number] 00:00:00 Test Item Value Reference Range Interpretation Comments CREATININE, URINE, CONC. (test 127.3 MG/DL code = 2072) ALBUMIN, URINE, RANDOM (test code 65.2 MG/DL = 85790) CALC ALBUMIN/CREAT, RND (test 512 MG/G code = 13117) CULTURE, [id number] 00:00:00 Test Item Value Reference Range Interpretation Comments CULTURE, URINE (test SPECIMEN NUMBER: code = 62399) [id number] CULTURE, [id number] 00:00:00 Test Item Value Reference Range Interpretation Comments CULTURE, URINE (test SPECIMEN NUMBER: code = 36189) [id number] CULTURE, [id number] 00:00:00 Test Item Value Reference Range Interpretation Comments CULTURE, URINE (test SPECIMEN NUMBER: code = 85447) [id number] CULTURE, [id number] 00:00:00 Test Item Value Reference Range Interpretation Comments CULTURE, URINE (test SPECIMEN NUMBER: code = 67797) [id number] CULTURE, [id number] 00:00:00 Test Item Value Reference Range Interpretation Comments CULTURE, URINE (test SPECIMEN NUMBER: code = 82446) [id number] CULTURE, [id number] 00:00:00 Test Item Value Reference Range Interpretation Comments CULTURE, URINE (test SPECIMEN NUMBER: code = 59554) [id number] CULTURE, [id number] 00:00:00 Test Item Value Reference Range Interpretation Comments CULTURE, URINE (test SPECIMEN NUMBER: code = 39188) [id number] CULTURE, [id number] 00:00:00 Test Item Value Reference Range Interpretation Comments CULTURE, URINE (test SPECIMEN NUMBER: code = 44365) [id number] CULTURE, [id number] 00:00:00 Test Item Value Reference Range Interpretation Comments CULTURE, URINE (test SPECIMEN NUMBER: code = 07855) [id number] CULTURE, [id number] 00:00:00 Test Item Value Reference Range Interpretation Comments CULTURE, URINE (test SPECIMEN NUMBER: code = 29964) [id number] CULTURE, [id number] 00:00:00 Test Item Value Reference Range Interpretation Comments CULTURE, URINE (test SPECIMEN NUMBER: code = 78599) [id number] CULTURE, [id number] 00:00:00 Test Item Value Reference Range Interpretation Comments CULTURE, URINE (test SPECIMEN NUMBER: code = 03174) [id number] CULTURE, [id number] 00:00:00 Test Item Value Reference Range Interpretation Comments CULTURE, URINE (test SPECIMEN NUMBER: code = 64725) [id number] CULTURE, [id number] 00:00:00 Test Item Value Reference Range Interpretation Comments CULTURE, URINE (test SPECIMEN NUMBER: code = 65532) [id number] CULTURE, [id number] 00:00:00 Test Item Value Reference Range Interpretation Comments CULTURE, URINE (test SPECIMEN NUMBER: code = 19327) [id number] CULTURE, [id number] 00:00:00 Test Item Value Reference Range Interpretation Comments CULTURE, URINE (test SPECIMEN NUMBER: code = 67504) [id number] CULTURE, [id number] 00:00:00 Test Item Value Reference Range Interpretation Comments CULTURE, URINE (test SPECIMEN NUMBER: code = 13441) [id number] CULTURE, [id number] 00:00:00 Test Item Value Reference Range Interpretation Comments CULTURE, URINE (test SPECIMEN NUMBER: code = 20588) [id number] CULTURE, [id number] 00:00:00 Test Item Value Reference Range Interpretation Comments CULTURE, URINE (test SPECIMEN NUMBER: code = 59206) [id number] CULTURE, [id number] 00:00:00 Test Item Value Reference Range Interpretation Comments CULTURE, URINE (test SPECIMEN NUMBER: code = 27164) [id number] CULTURE, [id number] 00:00:00 Test Item Value Reference Range Interpretation Comments CULTURE, URINE (test SPECIMEN NUMBER: code = 79281) [id number] VAGINAL PATHOGENS DNA [id number] 00:00:00 Test Item Value Reference Range Interpretation Comments ANDIE SPECIES (test code = ) NEGATIVE G. VAGINALIS (test code = ) NEGATIVE T. VAGINALIS (test code = ) NEGATIVE VAGINAL PATHOGENS DNA [id number] 00:00:00 Test Item Value Reference Range Interpretation Comments ANDIE SPECIES (test code = 22559) NEGATIVE G. VAGINALIS (test code = 45410) NEGATIVE T. VAGINALIS (test code = 07510) NEGATIVE VAGINAL PATHOGENS DNA [id number] 00:00:00 Test Item Value Reference Range Interpretation Comments ANDIE SPECIES (test code = 91443) NEGATIVE G. VAGINALIS (test code = 07199) NEGATIVE T. VAGINALIS (test code = 12979) NEGATIVE VAGINAL PATHOGENS DNA [id number] 00:00:00 Test Item Value Reference Range Interpretation Comments ANDIE SPECIES (test code = 61965) NEGATIVE G. VAGINALIS (test code = 90964) NEGATIVE T. VAGINALIS (test code = 99262) NEGATIVE VAGINAL PATHOGENS DNA [id number] 00:00:00 Test Item Value Reference Range Interpretation Comments ANDIE SPECIES (test code = 20625) NEGATIVE G. VAGINALIS (test code = 54505) NEGATIVE T. VAGINALIS (test code = 45985) NEGATIVE VAGINAL PATHOGENS DNA [id number] 00:00:00 Test Item Value Reference Range Interpretation Comments ANDIE SPECIES (test code = 58194) NEGATIVE G. VAGINALIS (test code = 80474) NEGATIVE T. VAGINALIS (test code = 72008) NEGATIVE VAGINAL PATHOGENS DNA [id number] 00:00:00 Test Item Value Reference Range Interpretation Comments ANDIE SPECIES (test code = 39571) NEGATIVE G. VAGINALIS (test code = 11869) NEGATIVE T. VAGINALIS (test code = 08021) NEGATIVE VAGINAL PATHOGENS DNA [id number] 00:00:00 Test Item Value Reference Range Interpretation Comments ANDIE SPECIES (test code = 01727) NEGATIVE G. VAGINALIS (test code = 95791) NEGATIVE T. VAGINALIS (test code = 15667) NEGATIVE VAGINAL PATHOGENS DNA [id number] 00:00:00 Test Item Value Reference Range Interpretation Comments ANDIE SPECIES (test code = 35784) NEGATIVE G. VAGINALIS (test code = 50946) NEGATIVE T. VAGINALIS (test code = 55765) NEGATIVE VAGINAL PATHOGENS DNA [id number] 00:00:00 Test Item Value Reference Range Interpretation Comments ANDIE SPECIES (test code = 48257) NEGATIVE G. VAGINALIS (test code = 30796) NEGATIVE T. VAGINALIS (test code = 00165) NEGATIVE VAGINAL PATHOGENS DNA [id number] 00:00:00 Test Item Value Reference Range Interpretation Comments ANDIE SPECIES (test code = 49466) NEGATIVE G. VAGINALIS (test code = 00381) NEGATIVE T. VAGINALIS (test code = 52220) NEGATIVE VAGINAL PATHOGENS DNA [id number] 00:00:00 Test Item Value Reference Range Interpretation Comments ANDIE SPECIES (test code = 65694) NEGATIVE G. VAGINALIS (test code = 73754) NEGATIVE T. VAGINALIS (test code = 71705) NEGATIVE VAGINAL PATHOGENS DNA [id number] 00:00:00 Test Item Value Reference Range Interpretation Comments ANDIE SPECIES (test code = 65717) NEGATIVE G. VAGINALIS (test code = 94464) NEGATIVE T. VAGINALIS (test code = 77983) NEGATIVE VAGINAL PATHOGENS DNA [id number] 00:00:00 Test Item Value Reference Range Interpretation Comments ANDIE SPECIES (test code = 36044) NEGATIVE G. VAGINALIS (test code = 56948) NEGATIVE T. VAGINALIS (test code = 16796) NEGATIVE VAGINAL PATHOGENS DNA [id number] 00:00:00 Test Item Value Reference Range Interpretation Comments ANDIE SPECIES (test code = 13673) NEGATIVE G. VAGINALIS (test code = 29907) NEGATIVE T. VAGINALIS (test code = 97472) NEGATIVE VAGINAL PATHOGENS DNA [id number] 00:00:00 Test Item Value Reference Range Interpretation Comments ANDIE SPECIES (test code = 24288) NEGATIVE G. VAGINALIS (test code = 72064) NEGATIVE T. VAGINALIS (test code = 55369) NEGATIVE VAGINAL PATHOGENS DNA [id number] 00:00:00 Test Item Value Reference Range Interpretation Comments ANDIE SPECIES (test code = 68209) NEGATIVE G. VAGINALIS (test code = 09569) NEGATIVE T. VAGINALIS (test code = 05260) NEGATIVE VAGINAL PATHOGENS DNA [id number] 00:00:00 Test Item Value Reference Range Interpretation Comments ANDIE SPECIES (test code = 09895) NEGATIVE G. VAGINALIS (test code = 37067) NEGATIVE T. VAGINALIS (test code = 65528) NEGATIVE VAGINAL PATHOGENS DNA [id number] 00:00:00 Test Item Value Reference Range Interpretation Comments ANDIE SPECIES (test code = 59623) NEGATIVE G. VAGINALIS (test code = 76835) NEGATIVE T. VAGINALIS (test code = ) NEGATIVE VAGINAL PATHOGENS DNA [id number] 00:00:00 Test Item Value Reference Range Interpretation Comments ANDIE SPECIES (test code = ) NEGATIVE G. VAGINALIS (test code = 79603) NEGATIVE T. VAGINALIS (test code = 68266) NEGATIVE VAGINAL PATHOGENS DNA [id number] 00:00:00 Test Item Value Reference Range Interpretation Comments ANDIE SPECIES (test code = ) NEGATIVE G. VAGINALIS (test code = 74318) NEGATIVE T. VAGINALIS (test code = 69751) NEGATIVE COMPREHENSIVE METABOLIC PANEL [ADDED]2018-05-24 00:00:00 Test Item Value Reference Range Interpretation Comments GLUCOSE (test code = 2217) 198 MG/DL BUN (test code = 2208) 18 MG/DL CREATININE (test code = 2214) 0.86 MG/DL eGFR AMER. (test code 98 ML/MIN/1.73 = 67315) eGFR NON- AMER. (test 84 ML/MIN/1.73 code = 57864) CALC BUN/CREAT (test code = 21 RATIO [...] eGFR AMER. (test code 98 ML/MIN/1.73 = 17988) eGFR NON- AMER. (test 84 ML/MIN/1.73 code = 24392) CALC BUN/CREAT (test code = 21 RATIO [...] Interpretation Comments HEMOGLOBIN A1c (test code = 46759) 10.1 % HEMOGLOBIN A1c [ADDED]2018-05-24 00:00:00 Test Item Value Reference Range Interpretation Comments HEMOGLOBIN A1c (test code = 39509) 10.1 % HEMOGLOBIN A1c [ADDED]2018-05-24 00:00:00 Test Item Value Reference Range Interpretation Comments HEMOGLOBIN A1c (test code = 76407) 10.1 % COMPREHENSIVE METABOLIC PANEL [ADDED]2018-05-24 00:00:00 Test Item Value Reference Range Interpretation Comments GLUCOSE (test code = 2217) 198 MG/DL BUN (test code = 2208) 18 MG/DL CREATININE (test code = 2214) 0.86 MG/DL eGFR AMER. (test code 98 ML/MIN/1.73 = 36353) eGFR NON- AMER. (test 84 ML/MIN/1.73 code = 79267) CALC BUN/CREAT (test code = 21 RATIO [...] eGFR AMER. (test code 98 ML/MIN/1.73 = 35008) eGFR NON- AMER. (test 84 ML/MIN/1.73 code = 69302) CALC BUN/CREAT (test code = 21 RATIO [...] Interpretation Comments HEMOGLOBIN A1c (test code = 86719) 10.1 % HEMOGLOBIN A1c [ADDED]2018-05-24 00:00:00 Test Item Value Reference Range Interpretation Comments HEMOGLOBIN A1c (test code = 66281) 10.1 % HEMOGLOBIN A1c [ADDED]2018-05-24 00:00:00 Test Item Value Reference Range Interpretation Comments HEMOGLOBIN A1c (test code = 30770) 10.1 % COMPREHENSIVE METABOLIC PANEL [ADDED]2018-05-24 00:00:00 Test Item Value Reference Range Interpretation Comments GLUCOSE (test code = 2217) 198 MG/DL BUN (test code = 2208) 18 MG/DL CREATININE (test code = 2214) 0.86 MG/DL eGFR AMER. (test code 98 ML/MIN/1.73 = 97837) eGFR NON- AMER. (test 84 ML/MIN/1.73 code = 70006) CALC BUN/CREAT (test code = 21 RATIO [...] eGFR AMER. (test code 98 ML/MIN/1.73 = 44938) eGFR NON- AMER. (test 84 ML/MIN/1.73 code = 02157) CALC BUN/CREAT (test code = 21 RATIO [...] = 0.3 MG/DL 7) ALKALINE PHOSPHATASE (test 42 U/L [...] Interpretation Comments HEMOGLOBIN A1c (test code = 25394) 10.1 % HEMOGLOBIN A1c [ADDED]2018-05-24 00:00:00 Test Item Value Reference Range Interpretation Comments HEMOGLOBIN A1c (test code = 13737) 10.1 % HEMOGLOBIN A1c [ADDED]2018-05-24 00:00:00 Test Item Value Reference Range Interpretation Comments HEMOGLOBIN A1c (test code = 88892) 10.1 % COMPREHENSIVE METABOLIC PANEL [ADDED]2018-05-24 00:00:00 Test Item Value Reference Range Interpretation Comments GLUCOSE (test code = 2217) 198 MG/DL BUN (test code = 2208) 18 MG/DL CREATININE (test code = 2214) 0.86 MG/DL eGFR AMER. (test code 98 ML/MIN/1.73 = 46034) eGFR NON- AMER. (test 84 ML/MIN/1.73 code = 89025) CALC BUN/CREAT (test code = 21 RATIO [...] eGFR AMER. (test code 98 ML/MIN/1.73 = 24794) eGFR NON- AMER. (test 84 ML/MIN/1.73 code = 07865) CALC BUN/CREAT (test code = 21 RATIO [...] Interpretation Comments HEMOGLOBIN A1c (test code = 15953) 10.1 % HEMOGLOBIN A1c [ADDED]2018-05-24 00:00:00 Test Item Value Reference Range Interpretation Comments HEMOGLOBIN A1c (test code = 01418) 10.1 % HEMOGLOBIN A1c [ADDED]2018-05-24 00:00:00 Test Item Value Reference Range Interpretation Comments HEMOGLOBIN A1c (test code = 27950) 10.1 % COMPREHENSIVE METABOLIC PANEL [ADDED]2018-05-24 00:00:00 Test Item Value Reference Range Interpretation Comments GLUCOSE (test code = 2217) 198 MG/DL BUN (test code = 2208) 18 MG/DL CREATININE (test code = 2214) 0.86 MG/DL eGFR AMER. (test code 98 ML/MIN/1.73 = 28097) eGFR NON- AMER. (test 84 ML/MIN/1.73 code = 92507) CALC BUN/CREAT (test code = 21 RATIO [...] eGFR AMER. (test code 98 ML/MIN/1.73 = 62047) eGFR NON- AMER. (test 84 ML/MIN/1.73 code = 59622) CALC BUN/CREAT (test code = 21 RATIO [...] Interpretation Comments HEMOGLOBIN A1c (test code = 33999) 10.1 % HEMOGLOBIN A1c [ADDED]2018-05-24 00:00:00 Test Item Value Reference Range Interpretation Comments HEMOGLOBIN A1c (test code = 08839) 10.1 % HEMOGLOBIN A1c [ADDED]2018-05-24 00:00:00 Test Item Value Reference Range Interpretation Comments HEMOGLOBIN A1c (test code = 17435) 10.1 % COMPREHENSIVE METABOLIC PANEL [ADDED]2018-05-24 00:00:00 Test Item Value Reference Range Interpretation Comments GLUCOSE (test code = 2217) 198 MG/DL BUN (test code = 2208) 18 MG/DL CREATININE (test code = 2214) 0.86 MG/DL eGFR AMER. (test code 98 ML/MIN/1.73 = 68008) eGFR NON- AMER. (test 84 ML/MIN/1.73 code = 19763) CALC BUN/CREAT (test code = 21 RATIO [...] eGFR AMER. (test code 98 ML/MIN/1.73 = 03260) eGFR NON- AMER. (test 84 ML/MIN/1.73 code = 38073) CALC BUN/CREAT (test code = 21 RATIO [...] Interpretation Comments HEMOGLOBIN A1c (test code = 17949) 10.1 % HEMOGLOBIN A1c [ADDED]2018-05-24 00:00:00 Test Item Value Reference Range Interpretation Comments HEMOGLOBIN A1c (test code = 99003) 10.1 % HEMOGLOBIN A1c [ADDED]2018-05-24 00:00:00 Test Item Value Reference Range Interpretation Comments HEMOGLOBIN A1c (test code = 71111) 10.1 % COMPREHENSIVE METABOLIC PANEL [ADDED]2018-05-24 00:00:00 Test Item Value Reference Range Interpretation Comments GLUCOSE (test code = 2217) 198 MG/DL BUN (test code = 2208) 18 MG/DL CREATININE (test code = 2214) 0.86 MG/DL eGFR AMER. (test code 98 ML/MIN/1.73 = 88338) eGFR NON- AMER. (test 84 ML/MIN/1.73 code = 54283) CALC BUN/CREAT (test code = 21 RATIO [...] eGFR AMER. (test code 98 ML/MIN/1.73 = 94981) eGFR NON- AMER. (test 84 ML/MIN/1.73 code = 94073) CALC BUN/CREAT (test code = 21 RATIO [...] Interpretation Comments HEMOGLOBIN A1c (test code = 77654) 10.1 % HEMOGLOBIN A1c [ADDED]2018-05-24 00:00:00 Test Item Value Reference Range Interpretation Comments HEMOGLOBIN A1c (test code = 14986) 10.1 % HEMOGLOBIN A1c [ADDED]2018-05-24 00:00:00 Test Item Value Reference Range Interpretation Comments HEMOGLOBIN A1c (test code = 78704) 10.1 % COMPREHENSIVE METABOLIC PANEL [ADDED]2018-05-24 00:00:00 Test Item Value Reference Range Interpretation Comments GLUCOSE (test code = 2217) 198 MG/DL BUN (test code = 2208) 18 MG/DL CREATININE (test code = 2214) 0.86 MG/DL eGFR AMER. (test code 98 ML/MIN/1.73 = 21701) eGFR NON- AMER. (test 84 ML/MIN/1.73 code = 41182) CALC BUN/CREAT (test code = 21 RATIO [...] Interpretation Comments HEMOGLOBIN A1c (test code = 49397) 10.1 % HEMOGLOBIN A1c [ADDED]2018-05-24 00:00:00 Test Item Value Reference Range Interpretation Comments HEMOGLOBIN A1c (test code = 46564) 10.1 % COMPREHENSIVE METABOLIC PANEL [ADDED]2018-05-24 00:00:00 Test Item Value Reference Range Interpretation Comments GLUCOSE (test code = 2217) 198 MG/DL BUN (test code = 2208) 18 MG/DL CREATININE (test code = 2214) 0.86 MG/DL eGFR AMER. (test code 98 ML/MIN/1.73 = 41843) eGFR NON- AMER. (test 84 ML/MIN/1.73 code = 61670) CALC BUN/CREAT (test code = 21 RATIO [...] eGFR AMER. (test code 98 ML/MIN/1.73 = 36978) eGFR NON- AMER. (test 84 ML/MIN/1.73 code = 69648) CALC BUN/CREAT (test code = 21 RATIO [...] Interpretation Comments HEMOGLOBIN A1c (test code = 05864) 10.1 % HEMOGLOBIN A1c [ADDED]2018-05-24 00:00:00 Test Item Value Reference Range Interpretation Comments HEMOGLOBIN A1c (test code = 33165) 10.1 % HEMOGLOBIN A1c [ADDED]2018-05-24 00:00:00 Test Item Value Reference Range Interpretation Comments HEMOGLOBIN A1c (test code = 56148) 10.1 % COMPREHENSIVE METABOLIC PANEL [ADDED]2018-05-24 00:00:00 Test Item Value Reference Range Interpretation Comments GLUCOSE (test code = 2217) 198 MG/DL BUN (test code = 2208) 18 MG/DL CREATININE (test code = 2214) 0.86 MG/DL eGFR AMER. (test code 98 ML/MIN/1.73 = 68522) eGFR NON- AMER. (test 84 ML/MIN/1.73 code = 07709) CALC BUN/CREAT (test code = 21 RATIO [...] eGFR AMER. (test code 98 ML/MIN/1.73 = 96163) eGFR NON- AMER. (test 84 ML/MIN/1.73 code = 96846) CALC BUN/CREAT (test code = 21 RATIO [...] Interpretation Comments HEMOGLOBIN A1c (test code = 54288) 10.1 % HEMOGLOBIN A1c [ADDED]2018-05-24 00:00:00 Test Item Value Reference Range Interpretation Comments HEMOGLOBIN A1c (test code = 60233) 10.1 % HEMOGLOBIN A1c [ADDED]2018-05-24 00:00:00 Test Item Value Reference Range Interpretation Comments HEMOGLOBIN A1c (test code = 19456) 10.1 % COMPREHENSIVE METABOLIC PANEL [ADDED]2018-05-24 00:00:00 Test Item Value Reference Range Interpretation Comments GLUCOSE (test code = 2217) 198 MG/DL BUN (test code = 2208) 18 MG/DL CREATININE (test code = 2214) 0.86 MG/DL eGFR AMER. (test code 98 ML/MIN/1.73 = 06258) eGFR NON- AMER. (test 84 ML/MIN/1.73 code = 55816) CALC BUN/CREAT (test code = 21 RATIO [...] eGFR AMER. (test code 98 ML/MIN/1.73 = 15824) eGFR NON- AMER. (test 84 ML/MIN/1.73 code = 70227) CALC BUN/CREAT (test code = 21 RATIO [...] Interpretation Comments HEMOGLOBIN A1c (test code = 89749) 10.1 % HEMOGLOBIN A1c [ADDED]2018-05-24 00:00:00 Test Item Value Reference Range Interpretation Comments HEMOGLOBIN A1c (test code = 66815) 10.1 % HEMOGLOBIN A1c [ADDED]2018-05-24 00:00:00 Test Item Value Reference Range Interpretation Comments HEMOGLOBIN A1c (test code = 74704) 10.1 % HEMOGLOBIN [id number] 00:00:00 Test Item Value Reference Range Interpretation Comments HEMOGLOBIN A1c (test code = 57383) 8.5 % HEMOGLOBIN [id number] 00:00:00 Test Item Value Reference Range Interpretation Comments HEMOGLOBIN A1c (test code = 96740) 8.5 % HEMOGLOBIN [id number] 00:00:00 Test Item Value Reference Range Interpretation Comments HEMOGLOBIN A1c (test code = 38666) 8.5 % COMPREHENSIVE METABOLIC [id number] 00:00:00 Test Item Value Reference Range Interpretation Comments GLUCOSE (test code = 2217) 131 MG/DL BUN (test code = 2208) 16 MG/DL CREATININE (test code = 2214) 0.71 MG/DL eGFR AMER. (test code 124 ML/MIN/1.73 = 49446) eGFR NON- AMER. (test 107 ML/MIN/1.73 code = 13994) CALC BUN/CREAT (test code = 23 RATIO [...] code = 2219) 33 U/L COMPREHENSIVE METABOLIC [id number] 00:00:00 Test Item Value Reference Range Interpretation Comments GLUCOSE (test code = 2217) 131 MG/DL BUN (test code = 2208) 16 MG/DL CREATININE (test code = 2214) 0.71 MG/DL eGFR AMER. (test code 124 ML/MIN/1.73 = 76943) eGFR NON- AMER. (test 107 ML/MIN/1.73 code = 70982) CALC BUN/CREAT (test code = 23 RATIO [...] (test code = 2219) 33 U/L LIPID [id number] 00:00:00 Test Item Value Reference Range Interpretation Comments CHOLESTEROL (test code = 2210) 201 MG/DL TRIGLYCERIDES (test code = 2232) 1014 MG/DL HDL CHOLESTEROL (test code = 25 MG/DL 2220) CALC LDL CHOL (test code = 2237) NOTE MG/DL RISK RATIO LDL/HDL (test code = (NOTE) RATIO 2238) LIPID [id number] 00:00:00 Test Item Value Reference Range Interpretation Comments CHOLESTEROL (test code = 2210) 201 MG/DL TRIGLYCERIDES (test code = 2232) 1014 MG/DL HDL CHOLESTEROL (test code = 25 MG/DL 2220) CALC LDL CHOL (test code = 2237) NOTE MG/DL RISK RATIO LDL/HDL (test code = (NOTE) RATIO 2238) HEMOGLOBIN [id number] 00:00:00 Test Item Value Reference Range Interpretation Comments HEMOGLOBIN A1c (test code = 05761) 8.5 % HEMOGLOBIN [id number] 00:00:00 Test Item Value Reference Range Interpretation Comments HEMOGLOBIN A1c (test code = 21547) 8.5 % HEMOGLOBIN [id number] 00:00:00 Test Item Value Reference Range Interpretation Comments HEMOGLOBIN A1c (test code = 75710) 8.5 % COMPREHENSIVE METABOLIC [id number] 00:00:00 Test Item Value Reference Range Interpretation Comments GLUCOSE (test code = 2217) 131 MG/DL BUN (test code = 2208) 16 MG/DL CREATININE (test code = 2214) 0.71 MG/DL eGFR AMER. (test code 124 ML/MIN/1.73 = 02849) eGFR NON- AMER. (test 107 ML/MIN/1.73 code = 20280) CALC BUN/CREAT (test code = 23 RATIO [...] code = 2219) 33 U/L COMPREHENSIVE METABOLIC [id number] 00:00:00 Test Item Value Reference Range Interpretation Comments GLUCOSE (test code = 2217) 131 MG/DL BUN (test code = 2208) 16 MG/DL CREATININE (test code = 2214) 0.71 MG/DL eGFR AMER. (test code 124 ML/MIN/1.73 = 84651) eGFR NON- AMER. (test 107 ML/MIN/1.73 code = 46498) CALC BUN/CREAT (test code = 23 RATIO [...] = 0.4 MG/DL 7) ALKALINE PHOSPHATASE (test 32 U/L code = 2204) AST (test code = 2218) 26 U/L ALT (test code = 2219) 33 U/L LIPID [id number] 00:00:00 Test Item Value Reference Range Interpretation Comments CHOLESTEROL (test code = 2210) 201 MG/DL TRIGLYCERIDES (test code = 2232) 1014 MG/DL HDL CHOLESTEROL (test code = 25 MG/DL 2220) CALC LDL CHOL (test code = 2237) NOTE MG/DL RISK RATIO LDL/HDL (test code = (NOTE) RATIO 2238) LIPID [id number] 00:00:00 Test Item Value Reference Range Interpretation Comments CHOLESTEROL (test code = 2210) 201 MG/DL TRIGLYCERIDES (test code = 2232) 1014 MG/DL HDL CHOLESTEROL (test code = 25 MG/DL 2219) CALC LDL CHOL (test code = 2237) NOTE MG/DL RISK RATIO LDL/HDL (test code = (NOTE) RATIO 2238) HEMOGLOBIN [id number] 00:00:00 Test Item Value Reference Range Interpretation Comments HEMOGLOBIN A1c (test code = 40057) 8.5 % HEMOGLOBIN [id number] 00:00:00 Test Item Value Reference Range Interpretation Comments HEMOGLOBIN A1c (test code = 71653) 8.5 % HEMOGLOBIN [id number] 00:00:00 Test Item Value Reference Range Interpretation Comments HEMOGLOBIN A1c (test code = 79910) 8.5 % COMPREHENSIVE METABOLIC [id number] 00:00:00 Test Item Value Reference Range Interpretation Comments GLUCOSE (test code = 2217) 131 MG/DL BUN (test code = 2208) 16 MG/DL CREATININE (test code = 2214) 0.71 MG/DL eGFR AMER. (test code 124 ML/MIN/1.73 = 04791) eGFR NON- AMER. (test 107 ML/MIN/1.73 code = 27443) CALC BUN/CREAT (test code = 23 RATIO [...] code = 2219) 33 U/L COMPREHENSIVE METABOLIC [id number] 00:00:00 Test Item Value Reference Range Interpretation Comments GLUCOSE (test code = 2217) 131 MG/DL BUN (test code = 2208) 16 MG/DL CREATININE (test code = 2214) 0.71 MG/DL eGFR AMER. (test code 124 ML/MIN/1.73 = 16932) eGFR NON- AMER. (test 107 ML/MIN/1.73 code = 29561) CALC BUN/CREAT (test code = 23 RATIO [...] (test code = 2219) 33 U/L LIPID [id number] 00:00:00 Test Item Value Reference Range Interpretation Comments CHOLESTEROL (test code = 2210) 201 MG/DL TRIGLYCERIDES (test code = 2232) 1014 MG/DL HDL CHOLESTEROL (test code = 25 MG/DL 2220) CALC LDL CHOL (test code = 2237) NOTE MG/DL RISK RATIO LDL/HDL (test code = (NOTE) RATIO 2238) LIPID [id number] 00:00:00 Test Item Value Reference Range Interpretation Comments CHOLESTEROL (test code = 2210) 201 MG/DL TRIGLYCERIDES (test code = 2232) 1014 MG/DL HDL CHOLESTEROL (test code = 25 MG/DL 2220) CALC LDL CHOL (test code = 2237) NOTE MG/DL RISK RATIO LDL/HDL (test code = (NOTE) RATIO 2238) HEMOGLOBIN [id number] 00:00:00 Test Item Value Reference Range Interpretation Comments HEMOGLOBIN A1c (test code = 20943) 8.5 % HEMOGLOBIN [id number] 00:00:00 Test Item Value Reference Range Interpretation Comments HEMOGLOBIN A1c (test code = 07822) 8.5 % HEMOGLOBIN [id number] 00:00:00 Test Item Value Reference Range Interpretation Comments HEMOGLOBIN A1c (test code = 36871) 8.5 % COMPREHENSIVE METABOLIC [id number] 00:00:00 Test Item Value Reference Range Interpretation Comments GLUCOSE (test code = 2217) 131 MG/DL BUN (test code = 2208) 16 MG/DL CREATININE (test code = 2214) 0.71 MG/DL eGFR AMER. (test code 124 ML/MIN/1.73 = 39191) eGFR NON- AMER. (test 107 ML/MIN/1.73 code = 47926) CALC BUN/CREAT (test code = 23 RATIO [...] code = 2219) 33 U/L COMPREHENSIVE METABOLIC [id number] 00:00:00 Test Item Value Reference Range Interpretation Comments GLUCOSE (test code = 2217) 131 MG/DL BUN (test code = 2208) 16 MG/DL CREATININE (test code = 2214) 0.71 MG/DL eGFR AMER. (test code 124 ML/MIN/1.73 = 79340) eGFR NON- AMER. (test 107 ML/MIN/1.73 code = 08284) CALC BUN/CREAT (test code = 23 RATIO [...] (test code = 2219) 33 U/L LIPID [id number] 00:00:00 Test Item Value Reference Range Interpretation Comments CHOLESTEROL (test code = 2210) 201 MG/DL TRIGLYCERIDES (test code = 2232) 1014 MG/DL HDL CHOLESTEROL (test code = 25 MG/DL 2220) CALC LDL CHOL (test code = 2237) NOTE MG/DL RISK RATIO LDL/HDL (test code = (NOTE) RATIO 2238) LIPID [id number] 00:00:00 Test Item Value Reference Range Interpretation Comments CHOLESTEROL (test code = 2210) 201 MG/DL TRIGLYCERIDES (test code = 2232) 1014 MG/DL HDL CHOLESTEROL (test code = 25 MG/DL 2220) CALC LDL CHOL (test code = 2237) NOTE MG/DL RISK RATIO LDL/HDL (test code = (NOTE) RATIO 2238) HEMOGLOBIN [id number] 00:00:00 Test Item Value Reference Range Interpretation Comments HEMOGLOBIN A1c (test code = 79299) 8.5 % HEMOGLOBIN [id number] 00:00:00 Test Item Value Reference Range Interpretation Comments HEMOGLOBIN A1c (test code = 82638) 8.5 % HEMOGLOBIN [id number] 00:00:00 Test Item Value Reference Range Interpretation Comments HEMOGLOBIN A1c (test code = 44399) 8.5 % COMPREHENSIVE METABOLIC [id number] 00:00:00 Test Item Value Reference Range Interpretation Comments GLUCOSE (test code = 2217) 131 MG/DL BUN (test code = 2208) 16 MG/DL CREATININE (test code = 2214) 0.71 MG/DL eGFR AMER. (test code 124 ML/MIN/1.73 = 12584) eGFR NON- AMER. (test 107 ML/MIN/1.73 code = 56697) CALC BUN/CREAT (test code = 23 RATIO [...] code = 2219) 33 U/L COMPREHENSIVE METABOLIC [id number] 00:00:00 Test Item Value Reference Range Interpretation Comments GLUCOSE (test code = 2217) 131 MG/DL BUN (test code = 2208) 16 MG/DL CREATININE (test code = 2214) 0.71 MG/DL eGFR AMER. (test code 124 ML/MIN/1.73 = 85324) eGFR NON- AMER. (test 107 ML/MIN/1.73 code = 95536) CALC BUN/CREAT (test code = 23 RATIO [...] (test code = 2219) 33 U/L LIPID [id number] 00:00:00 Test Item Value Reference Range Interpretation Comments CHOLESTEROL (test code = 2210) 201 MG/DL TRIGLYCERIDES (test code = 2232) 1014 MG/DL HDL CHOLESTEROL (test code = 25 MG/DL 2220) CALC LDL CHOL (test code = 2237) NOTE MG/DL RISK RATIO LDL/HDL (test code = (NOTE) RATIO 2238) LIPID [id number] 00:00:00 Test Item Value Reference Range Interpretation Comments CHOLESTEROL (test code = 2210) 201 MG/DL TRIGLYCERIDES (test code = 2232) 1014 MG/DL HDL CHOLESTEROL (test code = 25 MG/DL 2220) CALC LDL CHOL (test code = 2237) NOTE MG/DL RISK RATIO LDL/HDL (test code = (NOTE) RATIO 2238) HEMOGLOBIN [id number] 00:00:00 Test Item Value Reference Range Interpretation Comments HEMOGLOBIN A1c (test code = 60077) 8.5 % HEMOGLOBIN [id number] 00:00:00 Test Item Value Reference Range Interpretation Comments HEMOGLOBIN A1c (test code = 93663) 8.5 % HEMOGLOBIN [id number] 00:00:00 Test Item Value Reference Range Interpretation Comments HEMOGLOBIN A1c (test code = 65626) 8.5 % COMPREHENSIVE METABOLIC [id number] 00:00:00 Test Item Value Reference Range Interpretation Comments GLUCOSE (test code = 2217) 131 MG/DL BUN (test code = 2208) 16 MG/DL CREATININE (test code = 2214) 0.71 MG/DL eGFR AMER. (test code 124 ML/MIN/1.73 = 59552) eGFR NON- AMER. (test 107 ML/MIN/1.73 code = 74459) CALC BUN/CREAT (test code = 23 RATIO [...] code = 2219) 33 U/L COMPREHENSIVE METABOLIC [id number] 00:00:00 Test Item Value Reference Range Interpretation Comments GLUCOSE (test code = 2217) 131 MG/DL BUN (test code = 2208) 16 MG/DL CREATININE (test code = 2214) 0.71 MG/DL eGFR AMER. (test code 124 ML/MIN/1.73 = 58214) eGFR NON- AMER. (test 107 ML/MIN/1.73 code = 25647) CALC BUN/CREAT (test code = 23 RATIO [...] (test code = 2219) 33 U/L LIPID [id number] 00:00:00 Test Item Value Reference Range Interpretation Comments CHOLESTEROL (test code = 2210) 201 MG/DL TRIGLYCERIDES (test code = 2232) 1014 MG/DL HDL CHOLESTEROL (test code = 25 MG/DL 2220) CALC LDL CHOL (test code = 2237) NOTE MG/DL RISK RATIO LDL/HDL (test code = (NOTE) RATIO 2238) LIPID [id number] 00:00:00 Test Item Value Reference Range Interpretation Comments CHOLESTEROL (test code = 2210) 201 MG/DL TRIGLYCERIDES (test code = 2232) 1014 MG/DL HDL CHOLESTEROL (test code = 25 MG/DL 2220) CALC LDL CHOL (test code = 2237) NOTE MG/DL RISK RATIO LDL/HDL (test code = (NOTE) RATIO 2238) HEMOGLOBIN [id number] 00:00:00 Test Item Value Reference Range Interpretation Comments HEMOGLOBIN A1c (test code = 83428) 8.5 % HEMOGLOBIN [id number] 00:00:00 Test Item Value Reference Range Interpretation Comments HEMOGLOBIN A1c (test code = 15031) 8.5 % HEMOGLOBIN [id number] 00:00:00 Test Item Value Reference Range Interpretation Comments HEMOGLOBIN A1c (test code = 27741) 8.5 % COMPREHENSIVE METABOLIC [id number] 00:00:00 Test Item Value Reference Range Interpretation Comments GLUCOSE (test code = 2217) 131 MG/DL BUN (test code = 2208) 16 MG/DL CREATININE (test code = 2214) 0.71 MG/DL eGFR AMER. (test code 124 ML/MIN/1.73 = 87728) eGFR NON- AMER. (test 107 ML/MIN/1.73 code = 27650) CALC BUN/CREAT (test code = 23 RATIO [...] code = 2219) 33 U/L COMPREHENSIVE METABOLIC [id number] 00:00:00 Test Item Value Reference Range Interpretation Comments GLUCOSE (test code = 2217) 131 MG/DL BUN (test code = 2208) 16 MG/DL CREATININE (test code = 2214) 0.71 MG/DL eGFR AMER. (test code 124 ML/MIN/1.73 = 86649) eGFR NON- AMER. (test 107 ML/MIN/1.73 code = 21791) CALC BUN/CREAT (test code = 23 RATIO [...] (test code = 2219) 33 U/L LIPID [id number] 00:00:00 Test Item Value Reference Range Interpretation Comments CHOLESTEROL (test code = 2210) 201 MG/DL TRIGLYCERIDES (test code = 2232) 1014 MG/DL HDL CHOLESTEROL (test code = 25 MG/DL 2220) CALC LDL CHOL (test code = 2237) NOTE MG/DL RISK RATIO LDL/HDL (test code = (NOTE) RATIO 2238) LIPID [id number] 00:00:00 Test Item Value Reference Range Interpretation Comments CHOLESTEROL (test code = 2210) 201 MG/DL TRIGLYCERIDES (test code = 2232) 1014 MG/DL HDL CHOLESTEROL (test code = 25 MG/DL 2220) CALC LDL CHOL (test code = 2237) NOTE MG/DL RISK RATIO LDL/HDL (test code = (NOTE) RATIO 2238) HEMOGLOBIN [id number] 00:00:00 Test Item Value Reference Range Interpretation Comments HEMOGLOBIN A1c (test code = 53001) 8.5 % HEMOGLOBIN [id number] 00:00:00 Test Item Value Reference Range Interpretation Comments HEMOGLOBIN A1c (test code = 12992) 8.5 % COMPREHENSIVE METABOLIC [id number] 00:00:00 Test Item Value Reference Range Interpretation Comments GLUCOSE (test code = 2217) 131 MG/DL BUN (test code = 2208) 16 MG/DL CREATININE (test code = 2214) 0.71 MG/DL eGFR AMER. (test code 124 ML/MIN/1.73 = 26661) eGFR NON- AMER. (test 107 ML/MIN/1.73 code = 13202) CALC BUN/CREAT (test code = 23 RATIO [...] (test code = 2219) 33 U/L LIPID [id number] 00:00:00 Test Item Value Reference Range Interpretation Comments CHOLESTEROL (test code = 2210) 201 MG/DL TRIGLYCERIDES (test code = 2232) 1014 MG/DL HDL CHOLESTEROL (test code = 25 MG/DL 0) CALC LDL CHOL (test code = 2237) NOTE MG/DL RISK RATIO LDL/HDL (test code = (NOTE) RATIO 2238) HEMOGLOBIN [id number] 00:00:00 Test Item Value Reference Range Interpretation Comments HEMOGLOBIN A1c (test code = 31555) 8.5 % HEMOGLOBIN [id number] 00:00:00 Test Item Value Reference Range Interpretation Comments HEMOGLOBIN A1c (test code = 07555) 8.5 % HEMOGLOBIN [id number] 00:00:00 Test Item Value Reference Range Interpretation Comments HEMOGLOBIN A1c (test code = 70735) 8.5 % COMPREHENSIVE METABOLIC [id number] 00:00:00 Test Item Value Reference Range Interpretation Comments GLUCOSE (test code = 2217) 131 MG/DL BUN (test code = 2208) 16 MG/DL CREATININE (test code = 2214) 0.71 MG/DL eGFR AMER. (test code 124 ML/MIN/1.73 = 69241) eGFR NON- AMER. (test 107 ML/MIN/1.73 code = 17060) CALC BUN/CREAT (test code = 23 RATIO [...] code = 2219) 33 U/L COMPREHENSIVE METABOLIC [id number] 00:00:00 Test Item Value Reference Range Interpretation Comments GLUCOSE (test code = 2217) 131 MG/DL BUN (test code = 2208) 16 MG/DL CREATININE (test code = 2214) 0.71 MG/DL eGFR AMER. (test code 124 ML/MIN/1.73 = 25632) eGFR NON- AMER. (test 107 ML/MIN/1.73 code = 97539) CALC BUN/CREAT (test code = 23 RATIO [...] (test code = 2219) 33 U/L LIPID [id number] 00:00:00 Test Item Value Reference Range Interpretation Comments CHOLESTEROL (test code = 2210) 201 MG/DL TRIGLYCERIDES (test code = 2232) 1014 MG/DL HDL CHOLESTEROL (test code = 25 MG/DL 2220) CALC LDL CHOL (test code = 2237) NOTE MG/DL RISK RATIO LDL/HDL (test code = (NOTE) RATIO 2238) LIPID [id number] 00:00:00 Test Item Value Reference Range Interpretation Comments CHOLESTEROL (test code = 2210) 201 MG/DL TRIGLYCERIDES (test code = 2232) 1014 MG/DL HDL CHOLESTEROL (test code = 25 MG/DL 2220) CALC LDL CHOL (test code = 2237) NOTE MG/DL RISK RATIO LDL/HDL (test code = (NOTE) RATIO 2238) HEMOGLOBIN [id number] 00:00:00 Test Item Value Reference Range Interpretation Comments HEMOGLOBIN A1c (test code = 30648) 8.5 % HEMOGLOBIN [id number] 00:00:00 Test Item Value Reference Range Interpretation Comments HEMOGLOBIN A1c (test code = 26299) 8.5 % HEMOGLOBIN [id number] 00:00:00 Test Item Value Reference Range Interpretation Comments HEMOGLOBIN A1c (test code = 31763) 8.5 % COMPREHENSIVE METABOLIC [id number] 00:00:00 Test Item Value Reference Range Interpretation Comments GLUCOSE (test code = 2217) 131 MG/DL BUN (test code = 2208) 16 MG/DL CREATININE (test code = 2214) 0.71 MG/DL eGFR AMER. (test code 124 ML/MIN/1.73 = 31296) eGFR NON- AMER. (test 107 ML/MIN/1.73 code = 27730) CALC BUN/CREAT (test code = 23 RATIO [...] code = 2219) 33 U/L COMPREHENSIVE METABOLIC [id number] 00:00:00 Test Item Value Reference Range Interpretation Comments GLUCOSE (test code = 2217) 131 MG/DL BUN (test code = 2208) 16 MG/DL CREATININE (test code = 2214) 0.71 MG/DL eGFR AMER. (test code 124 ML/MIN/1.73 = 16545) eGFR NON- AMER. (test 107 ML/MIN/1.73 code = 92322) CALC BUN/CREAT (test code = 23 RATIO [...] (test code = 2219) 33 U/L LIPID [id number] 00:00:00 Test Item Value Reference Range Interpretation Comments CHOLESTEROL (test code = 2210) 201 MG/DL TRIGLYCERIDES (test code = 2232) 1014 MG/DL HDL CHOLESTEROL (test code = 25 MG/DL 0) CALC LDL CHOL (test code = 2237) NOTE MG/DL RISK RATIO LDL/HDL (test code = (NOTE) RATIO 2238) LIPID [id number] 00:00:00 Test Item Value Reference Range Interpretation Comments CHOLESTEROL (test code = 2210) 201 MG/DL TRIGLYCERIDES (test code = 2232) 1014 MG/DL HDL CHOLESTEROL (test code = 25 MG/DL 2219) CALC LDL CHOL (test code = 2237) NOTE MG/DL RISK RATIO LDL/HDL (test code = (NOTE) RATIO 2238) HEMOGLOBIN [id number] 00:00:00 Test Item Value Reference Range Interpretation Comments HEMOGLOBIN A1c (test code = 80564) 8.5 % HEMOGLOBIN [id number] 00:00:00 Test Item Value Reference Range Interpretation Comments HEMOGLOBIN A1c (test code = 16702) 8.5 % HEMOGLOBIN [id number] 00:00:00 Test Item Value Reference Range Interpretation Comments HEMOGLOBIN A1c (test code = 95329) 8.5 % COMPREHENSIVE METABOLIC [id number] 00:00:00 Test Item Value Reference Range Interpretation Comments GLUCOSE (test code = 2217) 131 MG/DL BUN (test code = 2208) 16 MG/DL CREATININE (test code = 2214) 0.71 MG/DL eGFR AMER. (test code 124 ML/MIN/1.73 = 48436) eGFR NON- AMER. (test 107 ML/MIN/1.73 code = 13699) CALC BUN/CREAT (test code = 23 RATIO [...] code = 2219) 33 U/L COMPREHENSIVE METABOLIC [id number] 00:00:00 Test Item Value Reference Range Interpretation Comments GLUCOSE (test code = 2217) 131 MG/DL BUN (test code = 2208) 16 MG/DL CREATININE (test code = 2214) 0.71 MG/DL eGFR AMER. (test code 124 ML/MIN/1.73 = 13555) eGFR NON- AMER. (test 107 ML/MIN/1.73 code = 41268) CALC BUN/CREAT (test code = 23 RATIO [...] (test code = 2219) 33 U/L LIPID [id number] 00:00:00 Test Item Value Reference Range Interpretation Comments CHOLESTEROL (test code = 2210) 201 MG/DL TRIGLYCERIDES (test code = 2232) 1014 MG/DL HDL CHOLESTEROL (test code = 25 MG/DL 2220) CALC LDL CHOL (test code = 2237) NOTE MG/DL RISK RATIO LDL/HDL (test code = (NOTE) RATIO 2238) LIPID [id number] 00:00:00 Test Item Value Reference Range Interpretation Comments CHOLESTEROL (test code = 2210) 201 MG/DL TRIGLYCERIDES (test code = 2232) 1014 MG/DL HDL CHOLESTEROL (test code = 25 MG/DL 2220) CALC LDL CHOL (test code = 2237) NOTE MG/DL RISK RATIO LDL/HDL (test code = (NOTE) RATIO 2238) CULTURE, HERPES [id number] 00:00:00 Test Item Value Reference Range Interpretation Comments SPECIMEN SOURCE (test code = 02813) LABIA HERPES CULTURE (test code = 3533) NEGATIVE CULTURE, HERPES [id number] 00:00:00 Test Item Value Reference Range Interpretation Comments SPECIMEN SOURCE (test code = 47134) LABIA HERPES CULTURE (test code = 3533) NEGATIVE CULTURE, HERPES [id number] 00:00:00 Test Item Value Reference Range Interpretation Comments SPECIMEN SOURCE (test code = 43376) LABIA HERPES CULTURE (test code = 3533) NEGATIVE CULTURE, HERPES [id number] 00:00:00 Test Item Value Reference Range Interpretation Comments SPECIMEN SOURCE (test code = 74165) LABIA HERPES CULTURE (test code = 3533) NEGATIVE CULTURE, HERPES [id number] 00:00:00 Test Item Value Reference Range Interpretation Comments SPECIMEN SOURCE (test code = 98275) LABIA HERPES CULTURE (test code = 3533) NEGATIVE CULTURE, HERPES [id number] 00:00:00 Test Item Value Reference Range Interpretation Comments SPECIMEN SOURCE (test code = 43444) LABIA HERPES CULTURE (test code = 3533) NEGATIVE CULTURE, HERPES [id number] 00:00:00 Test Item Value Reference Range Interpretation Comments SPECIMEN SOURCE (test code = 41309) LABIA HERPES CULTURE (test code = 3533) NEGATIVE CULTURE, HERPES [id number] 00:00:00 Test Item Value Reference Range Interpretation Comments SPECIMEN SOURCE (test code = 62556) LABIA HERPES CULTURE (test code = 3533) NEGATIVE CULTURE, HERPES [id number] 00:00:00 Test Item Value Reference Range Interpretation Comments SPECIMEN SOURCE (test code = 45365) LABIA HERPES CULTURE (test code = 3533) NEGATIVE CULTURE, HERPES [id number] 00:00:00 Test Item Value Reference Range Interpretation Comments SPECIMEN SOURCE (test code = 43653) LABIA HERPES CULTURE (test code = 3533) NEGATIVE CULTURE, HERPES [id number] 00:00:00 Test Item Value Reference Range Interpretation Comments SPECIMEN SOURCE (test code = 80853) LABIA HERPES CULTURE (test code = 3533) NEGATIVE CULTURE, HERPES [id number] 00:00:00 Test Item Value Reference Range Interpretation Comments SPECIMEN SOURCE (test code = 27785) LABIA HERPES CULTURE (test code = 3533) NEGATIVE CULTURE, HERPES [id number] 00:00:00 Test Item Value Reference Range Interpretation Comments SPECIMEN SOURCE (test code = 75023) LABIA HERPES CULTURE (test code = 3533) NEGATIVE CULTURE, HERPES [id number] 00:00:00 Test Item Value Reference Range Interpretation Comments SPECIMEN SOURCE (test code = 17214) LABIA HERPES CULTURE (test code = 3533) NEGATIVE CULTURE, HERPES [id number] 00:00:00 Test Item Value Reference Range Interpretation Comments SPECIMEN SOURCE (test code = 32642) LABIA HERPES CULTURE (test code = 3533) NEGATIVE CULTURE, HERPES [id number] 00:00:00 Test Item Value Reference Range Interpretation Comments SPECIMEN SOURCE (test code = 75758) LABIA HERPES CULTURE (test code = 3533) NEGATIVE CULTURE, HERPES [id number] 00:00:00 Test Item Value Reference Range Interpretation Comments SPECIMEN SOURCE (test code = 71957) LABIA HERPES CULTURE (test code = 3533) NEGATIVE CULTURE, HERPES [id number] 00:00:00 Test Item Value Reference Range Interpretation Comments SPECIMEN SOURCE (test code = 23175) LABIA HERPES CULTURE (test code = 3533) NEGATIVE CULTURE, HERPES [id number] 00:00:00 Test Item Value Reference Range Interpretation Comments SPECIMEN SOURCE (test code = 29558) LABIA HERPES CULTURE (test code = 3533) NEGATIVE CULTURE, HERPES [id number] 00:00:00 Test Item Value Reference Range Interpretation Comments SPECIMEN SOURCE (test code = 94251) LABIA HERPES CULTURE (test code = 3533) NEGATIVE CULTURE, HERPES [id number] 00:00:00 Test Item Value Reference Range Interpretation Comments SPECIMEN SOURCE (test code = 58763) LABIA HERPES CULTURE (test code = 3533) NEGATIVE VAGINAL PATHOGENS DNA [id number] 00:00:00 Test Item Value Reference Range Interpretation Comments ANDIE SPECIES (test code = 21714) NEGATIVE G. VAGINALIS (test code = 37954) NEGATIVE T. VAGINALIS (test code = 44681) NEGATIVE VAGINAL PATHOGENS DNA [id number] 00:00:00 Test Item Value Reference Range Interpretation Comments ANDIE SPECIES (test code = 97296) NEGATIVE G. VAGINALIS (test code = 59527) NEGATIVE T. VAGINALIS (test code = 13394) NEGATIVE VAGINAL PATHOGENS DNA [id number] 00:00:00 Test Item Value Reference Range Interpretation Comments ANDIE SPECIES (test code = 79839) NEGATIVE G. VAGINALIS (test code = 68207) NEGATIVE T. VAGINALIS (test code = 23496) NEGATIVE VAGINAL PATHOGENS DNA [id number] 00:00:00 Test Item Value Reference Range Interpretation Comments ANDIE SPECIES (test code = 24387) NEGATIVE G. VAGINALIS (test code = 89921) NEGATIVE T. VAGINALIS (test code = 44222) NEGATIVE VAGINAL PATHOGENS DNA [id number] 00:00:00 Test Item Value Reference Range Interpretation Comments ANDIE SPECIES (test code = 93627) NEGATIVE G. VAGINALIS (test code = 77271) NEGATIVE T. VAGINALIS (test code = 75881) NEGATIVE VAGINAL PATHOGENS DNA [id number] 00:00:00 Test Item Value Reference Range Interpretation Comments ANDIE SPECIES (test code = 56779) NEGATIVE G. VAGINALIS (test code = 48452) NEGATIVE T. VAGINALIS (test code = 42744) NEGATIVE VAGINAL PATHOGENS DNA [id number] 00:00:00 Test Item Value Reference Range Interpretation Comments ANDIE SPECIES (test code = 80938) NEGATIVE G. VAGINALIS (test code = 22183) NEGATIVE T. VAGINALIS (test code = 14251) NEGATIVE VAGINAL PATHOGENS DNA [id number] 00:00:00 Test Item Value Reference Range Interpretation Comments ANDIE SPECIES (test code = 89833) NEGATIVE G. VAGINALIS (test code = 26238) NEGATIVE T. VAGINALIS (test code = 72748) NEGATIVE VAGINAL PATHOGENS DNA [id number] 00:00:00 Test Item Value Reference Range Interpretation Comments ANDIE SPECIES (test code = 90439) NEGATIVE G. VAGINALIS (test code = 46172) NEGATIVE T. VAGINALIS (test code = 87713) NEGATIVE VAGINAL PATHOGENS DNA [id number] 00:00:00 Test Item Value Reference Range Interpretation Comments ANDIE SPECIES (test code = 89533) NEGATIVE G. VAGINALIS (test code = 72229) NEGATIVE T. VAGINALIS (test code = 56149) NEGATIVE VAGINAL PATHOGENS DNA [id number] 00:00:00 Test Item Value Reference Range Interpretation Comments ANDIE SPECIES (test code = 66563) NEGATIVE G. VAGINALIS (test code = 62199) NEGATIVE T. VAGINALIS (test code = 18676) NEGATIVE VAGINAL PATHOGENS DNA [id number] 00:00:00 Test Item Value Reference Range Interpretation Comments ANDIE SPECIES (test code = 16643) NEGATIVE G. VAGINALIS (test code = 71559) NEGATIVE T. VAGINALIS (test code = 25413) NEGATIVE VAGINAL PATHOGENS DNA [id number] 00:00:00 Test Item Value Reference Range Interpretation Comments ANDIE SPECIES (test code = 33826) NEGATIVE G. VAGINALIS (test code = 68358) NEGATIVE T. VAGINALIS (test code = 15401) NEGATIVE VAGINAL PATHOGENS DNA [id number] 00:00:00 Test Item Value Reference Range Interpretation Comments ANDIE SPECIES (test code = 15270) NEGATIVE G. VAGINALIS (test code = 46150) NEGATIVE T. VAGINALIS (test code = 04807) NEGATIVE VAGINAL PATHOGENS DNA [id number] 00:00:00 Test Item Value Reference Range Interpretation Comments ANDIE SPECIES (test code = 37722) NEGATIVE G. VAGINALIS (test code = 16573) NEGATIVE T. VAGINALIS (test code = 37506) NEGATIVE VAGINAL PATHOGENS DNA [id number] 00:00:00 Test Item Value Reference Range Interpretation Comments ANDIE SPECIES (test code = 97217) NEGATIVE G. VAGINALIS (test code = 93858) NEGATIVE T. VAGINALIS (test code = 70909) NEGATIVE VAGINAL PATHOGENS DNA [id number] 00:00:00 Test Item Value Reference Range Interpretation Comments ANDIE SPECIES (test code = 68167) NEGATIVE G. VAGINALIS (test code = 38122) NEGATIVE T. VAGINALIS (test code = 99758) NEGATIVE VAGINAL PATHOGENS DNA [id number] 00:00:00 Test Item Value Reference Range Interpretation Comments ANDIE SPECIES (test code = 67217) NEGATIVE G. VAGINALIS (test code = 30038) NEGATIVE T. VAGINALIS (test code = 95042) NEGATIVE VAGINAL PATHOGENS DNA [id number] 00:00:00 Test Item Value Reference Range Interpretation Comments ANDIE SPECIES (test code = 93423) NEGATIVE G. VAGINALIS (test code = 61966) NEGATIVE T. VAGINALIS (test code = 48682) NEGATIVE VAGINAL PATHOGENS DNA [id number] 00:00:00 Test Item Value Reference Range Interpretation Comments ANDIE SPECIES (test code = 65029) NEGATIVE G. VAGINALIS (test code = 26944) NEGATIVE T. VAGINALIS (test code = 17058) NEGATIVE VAGINAL PATHOGENS DNA [id number] 00:00:00 Test Item Value Reference Range Interpretation Comments ANDIE SPECIES (test code = ) NEGATIVE G. VAGINALIS (test code = ) NEGATIVE T. VAGINALIS (test code = ) NEGATIVE COMPREHENSIVE METABOLIC [id number] 00:00:00 Test Item Value Reference Range Interpretation Comments GLUCOSE (test code = 2217) 138 MG/DL BUN (test code = 2208) 13 MG/DL CREATININE (test code = 2214) 0.50 MG/DL eGFR AMER. (test code 141 ML/MIN/1.73 = 05788) eGFR NON- AMER. (test 122 ML/MIN/1.73 code = 38719) CALC BUN/CREAT (test code = 26 RATIO [...] code = 2219) 41 U/L COMPREHENSIVE METABOLIC [id number] 00:00:00 Test Item Value Reference Range Interpretation Comments GLUCOSE (test code = 2217) 138 MG/DL BUN (test code = 2208) 13 MG/DL CREATININE (test code = 2214) 0.50 MG/DL eGFR AMER. (test code 141 ML/MIN/1.73 = 10917) eGFR NON- AMER. (test 122 ML/MIN/1.73 code = 39741) CALC BUN/CREAT (test code = 26 RATIO [...] (test code = 2219) 41 U/L LIPID [id number] 00:00:00 Test Item Value Reference Range Interpretation Comments CHOLESTEROL (test code = 2210) 359 MG/DL TRIGLYCERIDES (test code = 2232) 1659 MG/DL HDL CHOLESTEROL (test code = 15 MG/DL 2220) CALC LDL CHOL (test code = 2237) NOTE MG/DL RISK RATIO LDL/HDL (test code = (NOTE) RATIO 2238) LIPID [id number] 00:00:00 Test Item Value Reference Range Interpretation Comments CHOLESTEROL (test code = 2210) 359 MG/DL TRIGLYCERIDES (test code = 2232) 1659 MG/DL HDL CHOLESTEROL (test code = 15 MG/DL 2220) CALC LDL CHOL (test code = 2237) NOTE MG/DL RISK RATIO LDL/HDL (test code = (NOTE) RATIO 2238) CBC W/AUTO [id number] 00:00:00 Test Item Value Reference Range Interpretation [...] code = 1015) 287 K/UL CBC W/AUTO [id number] 00:00:00 Test Item Value Reference Range Interpretation [...] code = 1015) 287 K/UL CBC W/AUTO [id number] 00:00:00 Test Item Value Reference Range Interpretation [...] (test code = 1015) 287 K/UL HEMOGLOBIN [id number] 00:00:00 Test Item Value Reference Range Interpretation Comments HEMOGLOBIN A1c (test code = 08281) 9.8 % HEMOGLOBIN [id number] 00:00:00 Test Item Value Reference Range Interpretation Comments HEMOGLOBIN A1c (test code = 74339) 9.8 % HEMOGLOBIN [id number] 00:00:00 Test Item Value Reference Range Interpretation Comments HEMOGLOBIN A1c (test code = 11254) 9.8 % [id number] 00:00:00 Test Item Value Reference Range Interpretation Comments TSH (test code = 2821) 2.110 UIU/ML [id number] 00:00:00 Test Item Value Reference Range Interpretation Comments TSH (test code = 2821) 2.110 UIU/ML [id number] 00:00:00 Test Item Value Reference Range Interpretation Comments TSH (test code = 2821) 2.110 UIU/ML COMPREHENSIVE METABOLIC [id number] 00:00:00 Test Item Value Reference Range Interpretation Comments GLUCOSE (test code = 2217) 138 MG/DL BUN (test code = 2208) 13 MG/DL CREATININE (test code = 2214) 0.50 MG/DL eGFR AMER. (test code 141 ML/MIN/1.73 = 56326) eGFR NON- AMER. (test 122 ML/MIN/1.73 code = 39615) CALC BUN/CREAT (test code = 26 RATIO [...] code = 2219) 41 U/L COMPREHENSIVE METABOLIC [id number] 00:00:00 Test Item Value Reference Range Interpretation Comments GLUCOSE (test code = 2217) 138 MG/DL BUN (test code = 2208) 13 MG/DL CREATININE (test code = 2214) 0.50 MG/DL eGFR AMER. (test code 141 ML/MIN/1.73 = 85417) eGFR NON- AMER. (test 122 ML/MIN/1.73 code = 61866) CALC BUN/CREAT (test code = 26 RATIO [...] (test code = 2219) 41 U/L LIPID [id number] 00:00:00 Test Item Value Reference Range Interpretation Comments CHOLESTEROL (test code = 2210) 359 MG/DL TRIGLYCERIDES (test code = 2232) 1659 MG/DL HDL CHOLESTEROL (test code = 15 MG/DL 2220) CALC LDL CHOL (test code = 2237) NOTE MG/DL RISK RATIO LDL/HDL (test code = (NOTE) RATIO 2238) LIPID [id number] 00:00:00 Test Item Value Reference Range Interpretation Comments CHOLESTEROL (test code = 2210) 359 MG/DL TRIGLYCERIDES (test code = 2232) 1659 MG/DL HDL CHOLESTEROL (test code = 15 MG/DL 2220) CALC LDL CHOL (test code = 2237) NOTE MG/DL RISK RATIO LDL/HDL (test code = (NOTE) RATIO 2238) CBC W/AUTO [id number] 00:00:00 Test Item Value Reference Range Interpretation [...] code = 1015) 287 K/UL CBC W/AUTO [id number] 00:00:00 Test Item Value Reference Range Interpretation [...] code = 1015) 287 K/UL CBC W/AUTO [id number] 00:00:00 Test Item Value Reference Range Interpretation [...] (test code = 1015) 287 K/UL HEMOGLOBIN [id number] 00:00:00 Test Item Value Reference Range Interpretation Comments HEMOGLOBIN A1c (test code = 86723) 9.8 % HEMOGLOBIN [id number] 00:00:00 Test Item Value Reference Range Interpretation Comments HEMOGLOBIN A1c (test code = 70695) 9.8 % HEMOGLOBIN [id number] 00:00:00 Test Item Value Reference Range Interpretation Comments HEMOGLOBIN A1c (test code = 15087) 9.8 % [id number] 00:00:00 Test Item Value Reference Range Interpretation Comments TSH (test code = 2821) 2.110 UIU/ML [id number] 00:00:00 Test Item Value Reference Range Interpretation Comments TSH (test code = 2821) 2.110 UIU/ML [id number] 00:00:00 Test Item Value Reference Range Interpretation Comments TSH (test code = 2821) 2.110 UIU/ML COMPREHENSIVE METABOLIC [id number] 00:00:00 Test Item Value Reference Range Interpretation Comments GLUCOSE (test code = 2217) 138 MG/DL BUN (test code = 2208) 13 MG/DL CREATININE (test code = 2214) 0.50 MG/DL eGFR AMER. (test code 141 ML/MIN/1.73 = 61227) eGFR NON- AMER. (test 122 ML/MIN/1.73 code = 41727) CALC BUN/CREAT (test code = 26 RATIO [...] code = 2219) 41 U/L COMPREHENSIVE METABOLIC [id number] 00:00:00 Test Item Value Reference Range Interpretation Comments GLUCOSE (test code = 2217) 138 MG/DL BUN (test code = 2208) 13 MG/DL CREATININE (test code = 2214) 0.50 MG/DL eGFR AMER. (test code 141 ML/MIN/1.73 = 57558) eGFR NON- AMER. (test 122 ML/MIN/1.73 code = 26336) CALC BUN/CREAT (test code = 26 RATIO [...] (test code = 2219) 41 U/L LIPID [id number] 00:00:00 Test Item Value Reference Range Interpretation Comments CHOLESTEROL (test code = 2210) 359 MG/DL TRIGLYCERIDES (test code = 2232) 1659 MG/DL HDL CHOLESTEROL (test code = 15 MG/DL 2220) CALC LDL CHOL (test code = 2237) NOTE MG/DL RISK RATIO LDL/HDL (test code = (NOTE) RATIO 2238) LIPID [id number] 00:00:00 Test Item Value Reference Range Interpretation Comments CHOLESTEROL (test code = 2210) 359 MG/DL TRIGLYCERIDES (test code = 2232) 1659 MG/DL HDL CHOLESTEROL (test code = 15 MG/DL 2220) CALC LDL CHOL (test code = 2237) NOTE MG/DL RISK RATIO LDL/HDL (test code = (NOTE) RATIO 2238) CBC W/AUTO [id number] 00:00:00 Test Item Value Reference Range Interpretation [...] code = 1015) 287 K/UL CBC W/AUTO [id number] 00:00:00 Test Item Value Reference Range Interpretation [...] code = 1015) 287 K/UL CBC W/AUTO [id number] 00:00:00 Test Item Value Reference Range Interpretation [...] (test code = 1015) 287 K/UL HEMOGLOBIN [id number] 00:00:00 Test Item Value Reference Range Interpretation Comments HEMOGLOBIN A1c (test code = 93380) 9.8 % HEMOGLOBIN [id number] 00:00:00 Test Item Value Reference Range Interpretation Comments HEMOGLOBIN A1c (test code = 20309) 9.8 % HEMOGLOBIN [id number] 00:00:00 Test Item Value Reference Range Interpretation Comments HEMOGLOBIN A1c (test code = 30022) 9.8 % [id number] 00:00:00 Test Item Value Reference Range Interpretation Comments TSH (test code = 2821) 2.110 UIU/ML [id number] 00:00:00 Test Item Value Reference Range Interpretation Comments TSH (test code = 2821) 2.110 UIU/ML [id number] 00:00:00 Test Item Value Reference Range Interpretation Comments TSH (test code = 2821) 2.110 UIU/ML COMPREHENSIVE METABOLIC [id number] 00:00:00 Test Item Value Reference Range Interpretation Comments GLUCOSE (test code = 2217) 138 MG/DL BUN (test code = 2208) 13 MG/DL CREATININE (test code = 2214) 0.50 MG/DL eGFR AMER. (test code 141 ML/MIN/1.73 = 03909) eGFR NON- AMER. (test 122 ML/MIN/1.73 code = 10251) CALC BUN/CREAT (test code = 26 RATIO [...] code = 2219) 41 U/L COMPREHENSIVE METABOLIC [id number] 00:00:00 Test Item Value Reference Range Interpretation Comments GLUCOSE (test code = 2217) 138 MG/DL BUN (test code = 2208) 13 MG/DL CREATININE (test code = 2214) 0.50 MG/DL eGFR AMER. (test code 141 ML/MIN/1.73 = 16724) eGFR NON- AMER. (test 122 ML/MIN/1.73 code = 57496) CALC BUN/CREAT (test code = 26 RATIO [...] (test code = 2219) 41 U/L LIPID [id number] 00:00:00 Test Item Value Reference Range Interpretation Comments CHOLESTEROL (test code = 2210) 359 MG/DL TRIGLYCERIDES (test code = 2232) 1659 MG/DL HDL CHOLESTEROL (test code = 15 MG/DL 2220) CALC LDL CHOL (test code = 2237) NOTE MG/DL RISK RATIO LDL/HDL (test code = (NOTE) RATIO 2238) LIPID [id number] 00:00:00 Test Item Value Reference Range Interpretation Comments CHOLESTEROL (test code = 2210) 359 MG/DL TRIGLYCERIDES (test code = 2232) 1659 MG/DL HDL CHOLESTEROL (test code = 15 MG/DL 2220) CALC LDL CHOL (test code = 2237) NOTE MG/DL RISK RATIO LDL/HDL (test code = (NOTE) RATIO 2238) CBC W/AUTO [id number] 00:00:00 Test Item Value Reference Range Interpretation [...] code = 1015) 287 K/UL CBC W/AUTO [id number] 00:00:00 Test Item Value Reference Range Interpretation [...] code = 1015) 287 K/UL CBC W/AUTO [id number] 00:00:00 Test Item Value Reference Range Interpretation [...] (test code = 1015) 287 K/UL HEMOGLOBIN [id number] 00:00:00 Test Item Value Reference Range Interpretation Comments HEMOGLOBIN A1c (test code = 70629) 9.8 % HEMOGLOBIN [id number] 00:00:00 Test Item Value Reference Range Interpretation Comments HEMOGLOBIN A1c (test code = 37762) 9.8 % HEMOGLOBIN [id number] 00:00:00 Test Item Value Reference Range Interpretation Comments HEMOGLOBIN A1c (test code = 81145) 9.8 % [id number] 00:00:00 Test Item Value Reference Range Interpretation Comments TSH (test code = 2821) 2.110 UIU/ML [id number] 00:00:00 Test Item Value Reference Range Interpretation Comments TSH (test code = 2821) 2.110 UIU/ML [id number] 00:00:00 Test Item Value Reference Range Interpretation Comments TSH (test code = 2821) 2.110 UIU/ML COMPREHENSIVE METABOLIC [id number] 00:00:00 Test Item Value Reference Range Interpretation Comments GLUCOSE (test code = 2217) 138 MG/DL BUN (test code = 2208) 13 MG/DL CREATININE (test code = 2214) 0.50 MG/DL eGFR AMER. (test code 141 ML/MIN/1.73 = 73717) eGFR NON- AMER. (test 122 ML/MIN/1.73 code = 61261) CALC BUN/CREAT (test code = 26 RATIO [...] code = 2219) 41 U/L COMPREHENSIVE METABOLIC [id number] 00:00:00 Test Item Value Reference Range Interpretation Comments GLUCOSE (test code = 2217) 138 MG/DL BUN (test code = 2208) 13 MG/DL CREATININE (test code = 2214) 0.50 MG/DL eGFR AMER. (test code 141 ML/MIN/1.73 = 47575) eGFR NON- AMER. (test 122 ML/MIN/1.73 code = 26603) CALC BUN/CREAT (test code = 26 RATIO [...] (test code = 2219) 41 U/L LIPID [id number] 00:00:00 Test Item Value Reference Range Interpretation Comments CHOLESTEROL (test code = 2210) 359 MG/DL TRIGLYCERIDES (test code = 2232) 1659 MG/DL HDL CHOLESTEROL (test code = 15 MG/DL 2220) CALC LDL CHOL (test code = 2237) NOTE MG/DL RISK RATIO LDL/HDL (test code = (NOTE) RATIO 2238) LIPID [id number] 00:00:00 Test Item Value Reference Range Interpretation Comments CHOLESTEROL (test code = 2210) 359 MG/DL TRIGLYCERIDES (test code = 2232) 1659 MG/DL HDL CHOLESTEROL (test code = 15 MG/DL 2220) CALC LDL CHOL (test code = 2237) NOTE MG/DL RISK RATIO LDL/HDL (test code = (NOTE) RATIO 2238) CBC W/AUTO [id number] 00:00:00 Test Item Value Reference Range Interpretation [...] code = 1015) 287 K/UL CBC W/AUTO [id number] 00:00:00 Test Item Value Reference Range Interpretation [...] code = 1015) 287 K/UL CBC W/AUTO [id number] 00:00:00 Test Item Value Reference Range Interpretation [...] (test code = 1015) 287 K/UL HEMOGLOBIN [id number] 00:00:00 Test Item Value Reference Range Interpretation Comments HEMOGLOBIN A1c (test code = 47967) 9.8 % HEMOGLOBIN [id number] 00:00:00 Test Item Value Reference Range Interpretation Comments HEMOGLOBIN A1c (test code = 38087) 9.8 % HEMOGLOBIN [id number] 00:00:00 Test Item Value Reference Range Interpretation Comments HEMOGLOBIN A1c (test code = 45382) 9.8 % [id number] 00:00:00 Test Item Value Reference Range Interpretation Comments TSH (test code = 2821) 2.110 UIU/ML [id number] 00:00:00 Test Item Value Reference Range Interpretation Comments TSH (test code = 2821) 2.110 UIU/ML [id number] 00:00:00 Test Item Value Reference Range Interpretation Comments TSH (test code = 2821) 2.110 UIU/ML COMPREHENSIVE METABOLIC [id number] 00:00:00 Test Item Value Reference Range Interpretation Comments GLUCOSE (test code = 2217) 138 MG/DL BUN (test code = 2208) 13 MG/DL CREATININE (test code = 2214) 0.50 MG/DL eGFR AMER. (test code 141 ML/MIN/1.73 = 04111) eGFR NON- AMER. (test 122 ML/MIN/1.73 code = 88022) CALC BUN/CREAT (test code = 26 RATIO [...] code = 2219) 41 U/L COMPREHENSIVE METABOLIC [id number] 00:00:00 Test Item Value Reference Range Interpretation Comments GLUCOSE (test code = 2217) 138 MG/DL BUN (test code = 2208) 13 MG/DL CREATININE (test code = 2214) 0.50 MG/DL eGFR AMER. (test code 141 ML/MIN/1.73 = 38657) eGFR NON- AMER. (test 122 ML/MIN/1.73 code = 00756) CALC BUN/CREAT (test code = 26 RATIO [...] (test code = 2219) 41 U/L LIPID [id number] 00:00:00 Test Item Value Reference Range Interpretation Comments CHOLESTEROL (test code = 2210) 359 MG/DL TRIGLYCERIDES (test code = 2232) 1659 MG/DL HDL CHOLESTEROL (test code = 15 MG/DL 0) CALC LDL CHOL (test code = 2237) NOTE MG/DL RISK RATIO LDL/HDL (test code = (NOTE) RATIO 2238) LIPID [id number] 00:00:00 Test Item Value Reference Range Interpretation Comments CHOLESTEROL (test code = 2210) 359 MG/DL TRIGLYCERIDES (test code = 2232) 1659 MG/DL HDL CHOLESTEROL (test code = 15 MG/DL 2220) CALC LDL CHOL (test code = 2237) NOTE MG/DL RISK RATIO LDL/HDL (test code = (NOTE) RATIO 2238) CBC W/AUTO [id number] 00:00:00 Test Item Value Reference Range Interpretation [...] code = 1015) 287 K/UL CBC W/AUTO [id number] 00:00:00 Test Item Value Reference Range Interpretation [...] code = 1015) 287 K/UL CBC W/AUTO [id number] 00:00:00 Test Item Value Reference Range Interpretation [...] (test code = 1015) 287 K/UL HEMOGLOBIN [id number] 00:00:00 Test Item Value Reference Range Interpretation Comments HEMOGLOBIN A1c (test code = 02070) 9.8 % HEMOGLOBIN [id number] 00:00:00 Test Item Value Reference Range Interpretation Comments HEMOGLOBIN A1c (test code = 94439) 9.8 % HEMOGLOBIN [id number] 00:00:00 Test Item Value Reference Range Interpretation Comments HEMOGLOBIN A1c (test code = 12158) 9.8 % [id number] 00:00:00 Test Item Value Reference Range Interpretation Comments TSH (test code = 2821) 2.110 UIU/ML [id number] 00:00:00 Test Item Value Reference Range Interpretation Comments TSH (test code = 2821) 2.110 UIU/ML [id number] 00:00:00 Test Item Value Reference Range Interpretation Comments TSH (test code = 2821) 2.110 UIU/ML COMPREHENSIVE METABOLIC [id number] 00:00:00 Test Item Value Reference Range Interpretation Comments GLUCOSE (test code = 2217) 138 MG/DL BUN (test code = 2208) 13 MG/DL CREATININE (test code = 2214) 0.50 MG/DL eGFR AMER. (test code 141 ML/MIN/1.73 = 85397) eGFR NON- AMER. (test 122 ML/MIN/1.73 code = 14289) CALC BUN/CREAT (test code = 26 RATIO [...] code = 2219) 41 U/L COMPREHENSIVE METABOLIC [id number] 00:00:00 Test Item Value Reference Range Interpretation Comments GLUCOSE (test code = 2217) 138 MG/DL BUN (test code = 2208) 13 MG/DL CREATININE (test code = 2214) 0.50 MG/DL eGFR AMER. (test code 141 ML/MIN/1.73 = 49265) eGFR NON- AMER. (test 122 ML/MIN/1.73 code = 45013) CALC BUN/CREAT (test code = 26 RATIO [...] (test code = 2219) 41 U/L LIPID [id number] 00:00:00 Test Item Value Reference Range Interpretation Comments CHOLESTEROL (test code = 2210) 359 MG/DL TRIGLYCERIDES (test code = 2232) 1659 MG/DL HDL CHOLESTEROL (test code = 15 MG/DL 2220) CALC LDL CHOL (test code = 2237) NOTE MG/DL RISK RATIO LDL/HDL (test code = (NOTE) RATIO 2238) LIPID [id number] 00:00:00 Test Item Value Reference Range Interpretation Comments CHOLESTEROL (test code = 2210) 359 MG/DL TRIGLYCERIDES (test code = 2232) 1659 MG/DL HDL CHOLESTEROL (test code = 15 MG/DL 2220) CALC LDL CHOL (test code = 2237) NOTE MG/DL RISK RATIO LDL/HDL (test code = (NOTE) RATIO 2238) CBC W/AUTO [id number] 00:00:00 Test Item Value Reference Range Interpretation [...] code = 1015) 287 K/UL CBC W/AUTO [id number] 00:00:00 Test Item Value Reference Range Interpretation [...] code = 1015) 287 K/UL CBC W/AUTO [id number] 00:00:00 Test Item Value Reference Range Interpretation [...] (test code = 1015) 287 K/UL HEMOGLOBIN [id number] 00:00:00 Test Item Value Reference Range Interpretation Comments HEMOGLOBIN A1c (test code = 96512) 9.8 % HEMOGLOBIN [id number] 00:00:00 Test Item Value Reference Range Interpretation Comments HEMOGLOBIN A1c (test code = 55388) 9.8 % HEMOGLOBIN [id number] 00:00:00 Test Item Value Reference Range Interpretation Comments HEMOGLOBIN A1c (test code = 61643) 9.8 % [id number] 00:00:00 Test Item Value Reference Range Interpretation Comments TSH (test code = 2821) 2.110 UIU/ML [id number] 00:00:00 Test Item Value Reference Range Interpretation Comments TSH (test code = 2821) 2.110 UIU/ML [id number] 00:00:00 Test Item Value Reference Range Interpretation Comments TSH (test code = 2821) 2.110 UIU/ML COMPREHENSIVE METABOLIC [id number] 00:00:00 Test Item Value Reference Range Interpretation Comments GLUCOSE (test code = 2217) 138 MG/DL BUN (test code = 2208) 13 MG/DL CREATININE (test code = 2214) 0.50 MG/DL eGFR AMER. (test code 141 ML/MIN/1.73 = 91576) eGFR NON- AMER. (test 122 ML/MIN/1.73 code = 83701) CALC BUN/CREAT (test code = 26 RATIO [...] (test code = 2219) 41 U/L LIPID [id number] 00:00:00 Test Item Value Reference Range Interpretation Comments CHOLESTEROL (test code = 2210) 359 MG/DL TRIGLYCERIDES (test code = 2232) 1659 MG/DL HDL CHOLESTEROL (test code = 15 MG/DL 2219) CALC LDL CHOL (test code = 2237) NOTE MG/DL RISK RATIO LDL/HDL (test code = (NOTE) RATIO 2238) CBC W/AUTO [id number] 00:00:00 Test Item Value Reference Range Interpretation [...] code = 1015) 287 K/UL CBC W/AUTO [id number] 00:00:00 Test Item Value Reference Range Interpretation [...] (test code = 1015) 287 K/UL HEMOGLOBIN [id number] 00:00:00 Test Item Value Reference Range Interpretation Comments HEMOGLOBIN A1c (test code = 15355) 9.8 % HEMOGLOBIN [id number] 00:00:00 Test Item Value Reference Range Interpretation Comments HEMOGLOBIN A1c (test code = 94168) 9.8 % COMPREHENSIVE METABOLIC [id number] 00:00:00 Test Item Value Reference Range Interpretation Comments GLUCOSE (test code = 2217) 138 MG/DL BUN (test code = 2208) 13 MG/DL CREATININE (test code = 2214) 0.50 MG/DL eGFR AMER. (test code 141 ML/MIN/1.73 = 00165) eGFR NON- AMER. (test 122 ML/MIN/1.73 code = 70409) CALC BUN/CREAT (test code = 26 RATIO [...] code = 2219) 41 U/L COMPREHENSIVE METABOLIC [id number] 00:00:00 Test Item Value Reference Range Interpretation Comments GLUCOSE (test code = 2217) 138 MG/DL BUN (test code = 2208) 13 MG/DL CREATININE (test code = 2214) 0.50 MG/DL eGFR AMER. (test code 141 ML/MIN/1.73 = 93715) eGFR NON- AMER. (test 122 ML/MIN/1.73 code = 61676) CALC BUN/CREAT (test code = 26 RATIO [...] (test code = 2219) 41 U/L LIPID [id number] 00:00:00 Test Item Value Reference Range Interpretation Comments CHOLESTEROL (test code = 2210) 359 MG/DL TRIGLYCERIDES (test code = 2232) 1659 MG/DL HDL CHOLESTEROL (test code = 15 MG/DL 2220) CALC LDL CHOL (test code = 2237) NOTE MG/DL RISK RATIO LDL/HDL (test code = (NOTE) RATIO 2238) LIPID [id number] 00:00:00 Test Item Value Reference Range Interpretation Comments CHOLESTEROL (test code = 2210) 359 MG/DL TRIGLYCERIDES (test code = 2232) 1659 MG/DL HDL CHOLESTEROL (test code = 15 MG/DL 2220) CALC LDL CHOL (test code = 2237) NOTE MG/DL RISK RATIO LDL/HDL (test code = (NOTE) RATIO 2238) [id number] 00:00:00 Test Item Value Reference Range Interpretation Comments TSH (test code = 2821) 2.110 UIU/ML CBC W/AUTO [id number] 00:00:00 Test Item Value Reference Range Interpretation [...] code = 1015) 287 K/UL CBC W/AUTO [id number] 00:00:00 Test Item Value Reference Range Interpretation [...] code = 1015) 287 K/UL CBC W/AUTO [id number] 00:00:00 Test Item Value Reference Range Interpretation [...] (test code = 1015) 287 K/UL HEMOGLOBIN [id number] 00:00:00 Test Item Value Reference Range Interpretation Comments HEMOGLOBIN A1c (test code = 42891) 9.8 % HEMOGLOBIN [id number] 00:00:00 Test Item Value Reference Range Interpretation Comments HEMOGLOBIN A1c (test code = 64525) 9.8 % HEMOGLOBIN [id number] 00:00:00 Test Item Value Reference Range Interpretation Comments HEMOGLOBIN A1c (test code = 80071) 9.8 % [id number] 00:00:00 Test Item Value Reference Range Interpretation Comments TSH (test code = 2821) 2.110 UIU/ML [id number] 00:00:00 Test Item Value Reference Range Interpretation Comments TSH (test code = 2821) 2.110 UIU/ML [id number] 00:00:00 Test Item Value Reference Range Interpretation Comments TSH (test code = 2821) 2.110 UIU/ML [id number] 00:00:00 Test Item Value Reference Range Interpretation Comments TSH (test code = 2821) 2.110 UIU/ML COMPREHENSIVE METABOLIC [id number] 00:00:00 Test Item Value Reference Range Interpretation Comments GLUCOSE (test code = 2217) 138 MG/DL BUN (test code = 2208) 13 MG/DL CREATININE (test code = 2214) 0.50 MG/DL eGFR AMER. (test code 141 ML/MIN/1.73 = 60908) eGFR NON- AMER. (test 122 ML/MIN/1.73 code = 49466) CALC BUN/CREAT (test code = 26 RATIO [...] code = 2219) 41 U/L COMPREHENSIVE METABOLIC [id number] 00:00:00 Test Item Value Reference Range Interpretation Comments GLUCOSE (test code = 2217) 138 MG/DL BUN (test code = 2208) 13 MG/DL CREATININE (test code = 2214) 0.50 MG/DL eGFR AMER. (test code 141 ML/MIN/1.73 = 77716) eGFR NON- AMER. (test 122 ML/MIN/1.73 code = 22446) CALC BUN/CREAT (test code = 26 RATIO [...] (test code = 2219) 41 U/L LIPID [id number] 00:00:00 Test Item Value Reference Range Interpretation Comments CHOLESTEROL (test code = 2210) 359 MG/DL TRIGLYCERIDES (test code = 2232) 1659 MG/DL HDL CHOLESTEROL (test code = 15 MG/DL 2220) CALC LDL CHOL (test code = 2237) NOTE MG/DL RISK RATIO LDL/HDL (test code = (NOTE) RATIO 2238) LIPID [id number] 00:00:00 Test Item Value Reference Range Interpretation Comments CHOLESTEROL (test code = 2210) 359 MG/DL TRIGLYCERIDES (test code = 2232) 1659 MG/DL HDL CHOLESTEROL (test code = 15 MG/DL 2220) CALC LDL CHOL (test code = 2237) NOTE MG/DL RISK RATIO LDL/HDL (test code = (NOTE) RATIO 2238) CBC W/AUTO [id number] 00:00:00 Test Item Value Reference Range Interpretation [...] code = 1015) 287 K/UL CBC W/AUTO [id number] 00:00:00 Test Item Value Reference Range Interpretation [...] code = 1015) 287 K/UL CBC W/AUTO [id number] 00:00:00 Test Item Value Reference Range Interpretation [...] (test code = 1015) 287 K/UL HEMOGLOBIN [id number] 00:00:00 Test Item Value Reference Range Interpretation Comments HEMOGLOBIN A1c (test code = 56548) 9.8 % HEMOGLOBIN [id number] 00:00:00 Test Item Value Reference Range Interpretation Comments HEMOGLOBIN A1c (test code = 80410) 9.8 % HEMOGLOBIN [id number] 00:00:00 Test Item Value Reference Range Interpretation Comments HEMOGLOBIN A1c (test code = 12397) 9.8 % [id number] 00:00:00 Test Item Value Reference Range Interpretation Comments TSH (test code = 2821) 2.110 UIU/ML [id number] 00:00:00 Test Item Value Reference Range Interpretation Comments TSH (test code = 2821) 2.110 UIU/ML [id number] 00:00:00 Test Item Value Reference Range Interpretation Comments TSH (test code = 2821) 2.110 UIU/ML COMPREHENSIVE METABOLIC [id number] 00:00:00 Test Item Value Reference Range Interpretation Comments GLUCOSE (test code = 2217) 138 MG/DL BUN (test code = 2208) 13 MG/DL CREATININE (test code = 2214) 0.50 MG/DL eGFR AMER. (test code 141 ML/MIN/1.73 = 84749) eGFR NON- AMER. (test 122 ML/MIN/1.73 code = 81127) CALC BUN/CREAT (test code = 26 RATIO [...] code = 2219) 41 U/L COMPREHENSIVE METABOLIC [id number] 00:00:00 Test Item Value Reference Range Interpretation Comments GLUCOSE (test code = 2217) 138 MG/DL BUN (test code = 2208) 13 MG/DL CREATININE (test code = 2214) 0.50 MG/DL eGFR AMER. (test code 141 ML/MIN/1.73 = 98564) eGFR NON- AMER. (test 122 ML/MIN/1.73 code = 51721) CALC BUN/CREAT (test code = 26 RATIO [...] (test code = 2219) 41 U/L LIPID [id number] 00:00:00 Test Item Value Reference Range Interpretation Comments CHOLESTEROL (test code = 2210) 359 MG/DL TRIGLYCERIDES (test code = 2232) 1659 MG/DL HDL CHOLESTEROL (test code = 15 MG/DL 2220) CALC LDL CHOL (test code = 2237) NOTE MG/DL RISK RATIO LDL/HDL (test code = (NOTE) RATIO 2238) LIPID [id number] 00:00:00 Test Item Value Reference Range Interpretation Comments CHOLESTEROL (test code = 2210) 359 MG/DL TRIGLYCERIDES (test code = 2232) 1659 MG/DL HDL CHOLESTEROL (test code = 15 MG/DL 2220) CALC LDL CHOL (test code = 2237) NOTE MG/DL RISK RATIO LDL/HDL (test code = (NOTE) RATIO 2238) CBC W/AUTO [id number] 00:00:00 Test Item Value Reference Range Interpretation [...] code = 1015) 287 K/UL CBC W/AUTO [id number] 00:00:00 Test Item Value Reference Range Interpretation [...] code = 1015) 287 K/UL CBC W/AUTO [id number] 00:00:00 Test Item Value Reference Range Interpretation [...] (test code = 1015) 287 K/UL HEMOGLOBIN [id number] 00:00:00 Test Item Value Reference Range Interpretation Comments HEMOGLOBIN A1c (test code = 56947) 9.8 % HEMOGLOBIN [id number] 00:00:00 Test Item Value Reference Range Interpretation Comments HEMOGLOBIN A1c (test code = 56392) 9.8 % HEMOGLOBIN [id number] 00:00:00 Test Item Value Reference Range Interpretation Comments HEMOGLOBIN A1c (test code = 86553) 9.8 % [id number] 00:00:00 Test Item Value Reference Range Interpretation Comments TSH (test code = 2821) 2.110 UIU/ML [id number] 00:00:00 Test Item Value Reference Range Interpretation Comments TSH (test code = 2821) 2.110 UIU/ML [id number] 00:00:00 Test Item Value Reference Range Interpretation Comments TSH (test code = 2821) 2.110 UIU/ML LIPID [id number] 00:00:00 Test Item Value Reference Range Interpretation Comments CHOLESTEROL (test code = 2210) 195 MG/DL TRIGLYCERIDES (test code = 2232) 505 MG/DL HDL CHOLESTEROL (test code = 35 MG/DL 2220) CALC LDL CHOL (test code = 2237) NOTE MG/DL RISK RATIO LDL/HDL (test code = (NOTE) RATIO 2238) LIPID [id number] 00:00:00 Test Item Value Reference Range Interpretation [...] (test code = 2821) 2.000 UIU/ML LIPID [id number] 00:00:00 Test Item Value Reference Range Interpretation Comments CHOLESTEROL (test code = 2210) 195 MG/DL TRIGLYCERIDES (test code = 2232) 505 MG/DL HDL CHOLESTEROL (test code = 35 MG/DL 2220) CALC LDL CHOL (test code = 2237) NOTE MG/DL RISK RATIO LDL/HDL (test code = (NOTE) RATIO 2238) LIPID [id number] 00:00:00 Test Item Value Reference Range Interpretation [...] (test code = 2821) 2.000 UIU/ML LIPID [id number] 00:00:00 Test Item Value Reference Range Interpretation Comments CHOLESTEROL (test code = 2210) 195 MG/DL TRIGLYCERIDES (test code = 2232) 505 MG/DL HDL CHOLESTEROL (test code = 35 MG/DL 2220) CALC LDL CHOL (test code = 2237) NOTE MG/DL RISK RATIO LDL/HDL (test code = (NOTE) RATIO 2238) LIPID [id number] 00:00:00 Test Item Value Reference Range Interpretation [...] (test code = 2821) 2.000 UIU/ML LIPID [id number] 00:00:00 Test Item Value Reference Range Interpretation Comments CHOLESTEROL (test code = 2210) 195 MG/DL TRIGLYCERIDES (test code = 2232) 505 MG/DL HDL CHOLESTEROL (test code = 35 MG/DL 2220) CALC LDL CHOL (test code = 2237) NOTE MG/DL RISK RATIO LDL/HDL (test code = (NOTE) RATIO 2238) LIPID [id number] 00:00:00 Test Item Value Reference Range Interpretation [...] (test code = 2821) 2.000 UIU/ML LIPID [id number] 00:00:00 Test Item Value Reference Range Interpretation Comments CHOLESTEROL (test code = 2210) 195 MG/DL TRIGLYCERIDES (test code = 2232) 505 MG/DL HDL CHOLESTEROL (test code = 35 MG/DL 2220) CALC LDL CHOL (test code = 2237) NOTE MG/DL RISK RATIO LDL/HDL (test code = (NOTE) RATIO 2238) LIPID [id number] 00:00:00 Test Item Value Reference Range Interpretation [...] (test code = 2821) 2.000 UIU/ML LIPID [id number] 00:00:00 Test Item Value Reference Range Interpretation Comments CHOLESTEROL (test code = 2210) 195 MG/DL TRIGLYCERIDES (test code = 2232) 505 MG/DL HDL CHOLESTEROL (test code = 35 MG/DL 2220) CALC LDL CHOL (test code = 2237) NOTE MG/DL RISK RATIO LDL/HDL (test code = (NOTE) RATIO 2238) LIPID [id number] 00:00:00 Test Item Value Reference Range Interpretation [...] (test code = 2821) 2.000 UIU/ML LIPID [id number] 00:00:00 Test Item Value Reference Range Interpretation Comments CHOLESTEROL (test code = 2210) 195 MG/DL TRIGLYCERIDES (test code = 2232) 505 MG/DL HDL CHOLESTEROL (test code = 35 MG/DL 2220) CALC LDL CHOL (test code = 2237) NOTE MG/DL RISK RATIO LDL/HDL (test code = (NOTE) RATIO 2238) LIPID [id number] 00:00:00 Test Item Value Reference Range Interpretation [...] (test code = 2821) 2.000 UIU/ML LIPID [id number] 00:00:00 Test Item Value Reference Range Interpretation [...] 2819) CALCULATED T7 (FTI) (test code = 2. 2820) TSH (test code = 2821) 2.000 UIU/ML LIPID [id number] 00:00:00 Test Item Value Reference Range Interpretation Comments CHOLESTEROL (test code = 2210) 195 MG/DL TRIGLYCERIDES (test code = 2232) 505 MG/DL HDL CHOLESTEROL (test code = 35 MG/DL 2220) CALC LDL CHOL (test code = 2237) NOTE MG/DL RISK RATIO LDL/HDL (test code = (NOTE) RATIO 2238) LIPID [id number] 00:00:00 Test Item Value Reference Range Interpretation [...] (test code = 2821) 2.000 UIU/ML LIPID [id number] 00:00:00 Test Item Value Reference Range Interpretation Comments CHOLESTEROL (test code = 2210) 195 MG/DL TRIGLYCERIDES (test code = 2232) 505 MG/DL HDL CHOLESTEROL (test code = 35 MG/DL 2220) CALC LDL CHOL (test code = 2237) NOTE MG/DL RISK RATIO LDL/HDL (test code = (NOTE) RATIO 2238) LIPID [id number] 00:00:00 Test Item Value Reference Range Interpretation [...] (test code = 2821) 2.000 UIU/ML LIPID [id number] 00:00:00 Test Item Value Reference Range Interpretation Comments CHOLESTEROL (test code = 2210) 195 MG/DL TRIGLYCERIDES (test code = 2232) 505 MG/DL HDL CHOLESTEROL (test code = 35 MG/DL 2220) CALC LDL CHOL (test code = 2237) NOTE MG/DL RISK RATIO LDL/HDL (test code = (NOTE) RATIO 2238) LIPID [id number] 00:00:00 Test Item Value Reference Range Interpretation [...] code = 2821) 2.000 UIU/ML COMPREHENSIVE METABOLIC [id number] 00:00:00 Test Item Value Reference Range Interpretation Comments GLUCOSE (test code = 2217) 154 MG/DL BUN (test code = 2208) 12 MG/DL CREATININE (test code = 2214) 0.54 MG/DL eGFR AMER. (test code 139 ML/MIN/1.73 = 26711) eGFR NON- AMER. (test 120 ML/MIN/1.73 code = 80014) CALC BUN/CREAT (test code = 22 RATIO [...] code = 2219) 22 U/L COMPREHENSIVE METABOLIC [id number] 00:00:00 Test Item Value Reference Range Interpretation Comments GLUCOSE (test code = 2217) 154 MG/DL BUN (test code = 2208) 12 MG/DL CREATININE (test code = 2214) 0.54 MG/DL eGFR AMER. (test code 139 ML/MIN/1.73 = 50528) eGFR NON- AMER. (test 120 ML/MIN/1.73 code = 09930) CALC BUN/CREAT (test code = 22 RATIO [...] (test code = 2219) 22 U/L LIPID [id number] 00:00:00 Test Item Value Reference Range Interpretation Comments CHOLESTEROL (test code = 2210) 243 MG/DL TRIGLYCERIDES (test code = 2232) 1140 MG/DL HDL CHOLESTEROL (test code = 31 MG/DL 2220) CALC LDL CHOL (test code = 2237) NOTE MG/DL RISK RATIO LDL/HDL (test code = (NOTE) RATIO 2238) LIPID [id number] 00:00:00 Test Item Value Reference Range Interpretation Comments CHOLESTEROL (test code = 2210) 243 MG/DL TRIGLYCERIDES (test code = 2232) 1140 MG/DL HDL CHOLESTEROL (test code = 31 MG/DL 2220) CALC LDL CHOL (test code = 2237) NOTE MG/DL RISK RATIO LDL/HDL (test code = (NOTE) RATIO 2238) CBC W/AUTO [id number] 00:00:00 Test Item Value Reference Range Interpretation [...] code = 1015) 229 K/UL CBC W/AUTO [id number] 00:00:00 Test Item Value Reference Range Interpretation [...] code = 1015) 229 K/UL CBC W/AUTO [id number] 00:00:00 Test Item Value Reference Range Interpretation [...] (test code = 1015) 229 K/UL HEMOGLOBIN [id number] 00:00:00 Test Item Value Reference Range Interpretation Comments HEMOGLOBIN A1c (test code = 73193) 7.7 % HEMOGLOBIN [id number] 00:00:00 Test Item Value Reference Range Interpretation Comments HEMOGLOBIN A1c (test code = 21602) 7.7 % HEMOGLOBIN [id number] 00:00:00 Test Item Value Reference Range Interpretation Comments HEMOGLOBIN A1c (test code = 80489) 7.7 % COMPREHENSIVE METABOLIC [id number] 00:00:00 Test Item Value Reference Range Interpretation Comments GLUCOSE (test code = 2217) 154 MG/DL BUN (test code = 2208) 12 MG/DL CREATININE (test code = 2214) 0.54 MG/DL eGFR AMER. (test code 139 ML/MIN/1.73 = 25078) eGFR NON- AMER. (test 120 ML/MIN/1.73 code = 37224) CALC BUN/CREAT (test code = 22 RATIO [...] code = 2219) 22 U/L COMPREHENSIVE METABOLIC [id number] 00:00:00 Test Item Value Reference Range Interpretation Comments GLUCOSE (test code = 2217) 154 MG/DL BUN (test code = 2208) 12 MG/DL CREATININE (test code = 2214) 0.54 MG/DL eGFR AMER. (test code 139 ML/MIN/1.73 = 13182) eGFR NON- AMER. (test 120 ML/MIN/1.73 code = 71689) CALC BUN/CREAT (test code = 22 RATIO [...] (test code = 2219) 22 U/L LIPID [id number] 00:00:00 Test Item Value Reference Range Interpretation Comments CHOLESTEROL (test code = 2210) 243 MG/DL TRIGLYCERIDES (test code = 2232) 1140 MG/DL HDL CHOLESTEROL (test code = 31 MG/DL 2220) CALC LDL CHOL (test code = 2237) NOTE MG/DL RISK RATIO LDL/HDL (test code = (NOTE) RATIO 2238) LIPID [id number] 00:00:00 Test Item Value Reference Range Interpretation Comments CHOLESTEROL (test code = 2210) 243 MG/DL TRIGLYCERIDES (test code = 2232) 1140 MG/DL HDL CHOLESTEROL (test code = 31 MG/DL 2220) CALC LDL CHOL (test code = 2237) NOTE MG/DL RISK RATIO LDL/HDL (test code = (NOTE) RATIO 2238) CBC W/AUTO [id number] 00:00:00 Test Item Value Reference Range Interpretation [...] code = 1015) 229 K/UL CBC W/AUTO [id number] 00:00:00 Test Item Value Reference Range Interpretation [...] code = 1015) 229 K/UL CBC W/AUTO [id number] 00:00:00 Test Item Value Reference Range Interpretation [...] (test code = 1015) 229 K/UL HEMOGLOBIN [id number] 00:00:00 Test Item Value Reference Range Interpretation Comments HEMOGLOBIN A1c (test code = 08353) 7.7 % HEMOGLOBIN [id number] 00:00:00 Test Item Value Reference Range Interpretation Comments HEMOGLOBIN A1c (test code = 32133) 7.7 % HEMOGLOBIN [id number] 00:00:00 Test Item Value Reference Range Interpretation Comments HEMOGLOBIN A1c (test code = 81311) 7.7 % COMPREHENSIVE METABOLIC [id number] 00:00:00 Test Item Value Reference Range Interpretation Comments GLUCOSE (test code = 2217) 154 MG/DL BUN (test code = 2208) 12 MG/DL CREATININE (test code = 2214) 0.54 MG/DL eGFR AMER. (test code 139 ML/MIN/1.73 = 64412) eGFR NON- AMER. (test 120 ML/MIN/1.73 code = 28662) CALC BUN/CREAT (test code = 22 RATIO [...] code = 2219) 22 U/L COMPREHENSIVE METABOLIC [id number] 00:00:00 Test Item Value Reference Range Interpretation Comments GLUCOSE (test code = 2217) 154 MG/DL BUN (test code = 2208) 12 MG/DL CREATININE (test code = 2214) 0.54 MG/DL eGFR AMER. (test code 139 ML/MIN/1.73 = 77823) eGFR NON- AMER. (test 120 ML/MIN/1.73 code = 92631) CALC BUN/CREAT (test code = 22 RATIO [...] (test code = 2219) 22 U/L LIPID [id number] 00:00:00 Test Item Value Reference Range Interpretation Comments CHOLESTEROL (test code = 2210) 243 MG/DL TRIGLYCERIDES (test code = 2232) 1140 MG/DL HDL CHOLESTEROL (test code = 31 MG/DL 2220) CALC LDL CHOL (test code = 2237) NOTE MG/DL RISK RATIO LDL/HDL (test code = (NOTE) RATIO 2238) LIPID [id number] 00:00:00 Test Item Value Reference Range Interpretation Comments CHOLESTEROL (test code = 2210) 243 MG/DL TRIGLYCERIDES (test code = 2232) 1140 MG/DL HDL CHOLESTEROL (test code = 31 MG/DL 2220) CALC LDL CHOL (test code = 2237) NOTE MG/DL RISK RATIO LDL/HDL (test code = (NOTE) RATIO 2238) CBC W/AUTO [id number] 00:00:00 Test Item Value Reference Range Interpretation [...] code = 1015) 229 K/UL CBC W/AUTO [id number] 00:00:00 Test Item Value Reference Range Interpretation [...] code = 1015) 229 K/UL CBC W/AUTO [id number] 00:00:00 Test Item Value Reference Range Interpretation [...] (test code = 1015) 229 K/UL HEMOGLOBIN [id number] 00:00:00 Test Item Value Reference Range Interpretation Comments HEMOGLOBIN A1c (test code = 34164) 7.7 % HEMOGLOBIN [id number] 00:00:00 Test Item Value Reference Range Interpretation Comments HEMOGLOBIN A1c (test code = 11751) 7.7 % HEMOGLOBIN [id number] 00:00:00 Test Item Value Reference Range Interpretation Comments HEMOGLOBIN A1c (test code = 99964) 7.7 % COMPREHENSIVE METABOLIC [id number] 00:00:00 Test Item Value Reference Range Interpretation Comments GLUCOSE (test code = 2217) 154 MG/DL BUN (test code = 2208) 12 MG/DL CREATININE (test code = 2214) 0.54 MG/DL eGFR AMER. (test code 139 ML/MIN/1.73 = 34539) eGFR NON- AMER. (test 120 ML/MIN/1.73 code = 84559) CALC BUN/CREAT (test code = 22 RATIO [...] code = 2219) 22 U/L COMPREHENSIVE METABOLIC [id number] 00:00:00 Test Item Value Reference Range Interpretation Comments GLUCOSE (test code = 2217) 154 MG/DL BUN (test code = 2208) 12 MG/DL CREATININE (test code = 2214) 0.54 MG/DL eGFR AMER. (test code 139 ML/MIN/1.73 = 29092) eGFR NON- AMER. (test 120 ML/MIN/1.73 code = 70994) CALC BUN/CREAT (test code = 22 RATIO [...] (test code = 2219) 22 U/L LIPID [id number] 00:00:00 Test Item Value Reference Range Interpretation Comments CHOLESTEROL (test code = 2210) 243 MG/DL TRIGLYCERIDES (test code = 2232) 1140 MG/DL HDL CHOLESTEROL (test code = 31 MG/DL 2220) CALC LDL CHOL (test code = 2237) NOTE MG/DL RISK RATIO LDL/HDL (test code = (NOTE) RATIO 2238) LIPID [id number] 00:00:00 Test Item Value Reference Range Interpretation Comments CHOLESTEROL (test code = 2210) 243 MG/DL TRIGLYCERIDES (test code = 2232) 1140 MG/DL HDL CHOLESTEROL (test code = 31 MG/DL 2220) CALC LDL CHOL (test code = 2237) NOTE MG/DL RISK RATIO LDL/HDL (test code = (NOTE) RATIO 2238) CBC W/AUTO [id number] 00:00:00 Test Item Value Reference Range Interpretation [...] code = 1015) 229 K/UL CBC W/AUTO [id number] 00:00:00 Test Item Value Reference Range Interpretation [...] code = 1015) 229 K/UL CBC W/AUTO [id number] 00:00:00 Test Item Value Reference Range Interpretation [...] (test code = 1015) 229 K/UL HEMOGLOBIN [id number] 00:00:00 Test Item Value Reference Range Interpretation Comments HEMOGLOBIN A1c (test code = 35397) 7.7 % HEMOGLOBIN [id number] 00:00:00 Test Item Value Reference Range Interpretation Comments HEMOGLOBIN A1c (test code = 75302) 7.7 % HEMOGLOBIN [id number] 00:00:00 Test Item Value Reference Range Interpretation Comments HEMOGLOBIN A1c (test code = 08315) 7.7 % COMPREHENSIVE METABOLIC [id number] 00:00:00 Test Item Value Reference Range Interpretation Comments GLUCOSE (test code = 2217) 154 MG/DL BUN (test code = 2208) 12 MG/DL CREATININE (test code = 2214) 0.54 MG/DL eGFR AMER. (test code 139 ML/MIN/1.73 = 57149) eGFR NON- AMER. (test 120 ML/MIN/1.73 code = 62359) CALC BUN/CREAT (test code = 22 RATIO [...] code = 2219) 22 U/L COMPREHENSIVE METABOLIC [id number] 00:00:00 Test Item Value Reference Range Interpretation Comments GLUCOSE (test code = 2217) 154 MG/DL BUN (test code = 2208) 12 MG/DL CREATININE (test code = 2214) 0.54 MG/DL eGFR AMER. (test code 139 ML/MIN/1.73 = 31567) eGFR NON- AMER. (test 120 ML/MIN/1.73 code = 33756) CALC BUN/CREAT (test code = 22 RATIO [...] (test code = 2219) 22 U/L LIPID [id number] 00:00:00 Test Item Value Reference Range Interpretation Comments CHOLESTEROL (test code = 2210) 243 MG/DL TRIGLYCERIDES (test code = 2232) 1140 MG/DL HDL CHOLESTEROL (test code = 31 MG/DL 2220) CALC LDL CHOL (test code = 2237) NOTE MG/DL RISK RATIO LDL/HDL (test code = (NOTE) RATIO 2238) LIPID [id number] 00:00:00 Test Item Value Reference Range Interpretation Comments CHOLESTEROL (test code = 2210) 243 MG/DL TRIGLYCERIDES (test code = 2232) 1140 MG/DL HDL CHOLESTEROL (test code = 31 MG/DL 2220) CALC LDL CHOL (test code = 2237) NOTE MG/DL RISK RATIO LDL/HDL (test code = (NOTE) RATIO 2238) CBC W/AUTO [id number] 00:00:00 Test Item Value Reference Range Interpretation [...] code = 1015) 229 K/UL CBC W/AUTO [id number] 00:00:00 Test Item Value Reference Range Interpretation [...] code = 1015) 229 K/UL CBC W/AUTO [id number] 00:00:00 Test Item Value Reference Range Interpretation [...] (test code = 1015) 229 K/UL HEMOGLOBIN [id number] 00:00:00 Test Item Value Reference Range Interpretation Comments HEMOGLOBIN A1c (test code = 30549) 7.7 % HEMOGLOBIN [id number] 00:00:00 Test Item Value Reference Range Interpretation Comments HEMOGLOBIN A1c (test code = 71826) 7.7 % HEMOGLOBIN [id number] 00:00:00 Test Item Value Reference Range Interpretation Comments HEMOGLOBIN A1c (test code = 48159) 7.7 % COMPREHENSIVE METABOLIC [id number] 00:00:00 Test Item Value Reference Range Interpretation Comments GLUCOSE (test code = 2217) 154 MG/DL BUN (test code = 2208) 12 MG/DL CREATININE (test code = 2214) 0.54 MG/DL eGFR AMER. (test code 139 ML/MIN/1.73 = 66860) eGFR NON- AMER. (test 120 ML/MIN/1.73 code = 42688) CALC BUN/CREAT (test code = 22 RATIO [...] code = 2219) 22 U/L COMPREHENSIVE METABOLIC [id number] 00:00:00 Test Item Value Reference Range Interpretation Comments GLUCOSE (test code = 2217) 154 MG/DL BUN (test code = 2208) 12 MG/DL CREATININE (test code = 2214) 0.54 MG/DL eGFR AMER. (test code 139 ML/MIN/1.73 = 89772) eGFR NON- AMER. (test 120 ML/MIN/1.73 code = 34391) CALC BUN/CREAT (test code = 22 RATIO [...] (test code = 2219) 22 U/L LIPID [id number] 00:00:00 Test Item Value Reference Range Interpretation Comments CHOLESTEROL (test code = 2210) 243 MG/DL TRIGLYCERIDES (test code = 2232) 1140 MG/DL HDL CHOLESTEROL (test code = 31 MG/DL 2220) CALC LDL CHOL (test code = 2237) NOTE MG/DL RISK RATIO LDL/HDL (test code = (NOTE) RATIO 2238) LIPID [id number] 00:00:00 Test Item Value Reference Range Interpretation Comments CHOLESTEROL (test code = 2210) 243 MG/DL TRIGLYCERIDES (test code = 2232) 1140 MG/DL HDL CHOLESTEROL (test code = 31 MG/DL 2220) CALC LDL CHOL (test code = 2237) NOTE MG/DL RISK RATIO LDL/HDL (test code = (NOTE) RATIO 2238) CBC W/AUTO [id number] 00:00:00 Test Item Value Reference Range Interpretation [...] code = 1015) 229 K/UL CBC W/AUTO [id number] 00:00:00 Test Item Value Reference Range Interpretation [...] code = 1015) 229 K/UL CBC W/AUTO [id number] 00:00:00 Test Item Value Reference Range Interpretation [...] (test code = 1015) 229 K/UL HEMOGLOBIN [id number] 00:00:00 Test Item Value Reference Range Interpretation Comments HEMOGLOBIN A1c (test code = 61465) 7.7 % HEMOGLOBIN [id number] 00:00:00 Test Item Value Reference Range Interpretation Comments HEMOGLOBIN A1c (test code = 14669) 7.7 % HEMOGLOBIN [id number] 00:00:00 Test Item Value Reference Range Interpretation Comments HEMOGLOBIN A1c (test code = 56569) 7.7 % COMPREHENSIVE METABOLIC [id number] 00:00:00 Test Item Value Reference Range Interpretation Comments GLUCOSE (test code = 2217) 154 MG/DL BUN (test code = 2208) 12 MG/DL CREATININE (test code = 2214) 0.54 MG/DL eGFR AMER. (test code 139 ML/MIN/1.73 = 01005) eGFR NON- AMER. (test 120 ML/MIN/1.73 code = 72070) CALC BUN/CREAT (test code = 22 RATIO [...] code = 2219) 22 U/L COMPREHENSIVE METABOLIC [id number] 00:00:00 Test Item Value Reference Range Interpretation Comments GLUCOSE (test code = 2217) 154 MG/DL BUN (test code = 2208) 12 MG/DL CREATININE (test code = 2214) 0.54 MG/DL eGFR AMER. (test code 139 ML/MIN/1.73 = 55475) eGFR NON- AMER. (test 120 ML/MIN/1.73 code = 33468) CALC BUN/CREAT (test code = 22 RATIO [...] (test code = 2219) 22 U/L LIPID [id number] 00:00:00 Test Item Value Reference Range Interpretation Comments CHOLESTEROL (test code = 2210) 243 MG/DL TRIGLYCERIDES (test code = 2232) 1140 MG/DL HDL CHOLESTEROL (test code = 31 MG/DL 2219) CALC LDL CHOL (test code = 2237) NOTE MG/DL RISK RATIO LDL/HDL (test code = (NOTE) RATIO 2238) COMPREHENSIVE METABOLIC [id number] 00:00:00 Test Item Value Reference Range Interpretation Comments GLUCOSE (test code = 2217) 154 MG/DL BUN (test code = 2208) 12 MG/DL CREATININE (test code = 2214) 0.54 MG/DL eGFR AMER. (test code 139 ML/MIN/1.73 = 45257) eGFR NON- AMER. (test 120 ML/MIN/1.73 code = 51252) CALC BUN/CREAT (test code = 22 RATIO [...] (test code = 2219) 22 U/L LIPID [id number] 00:00:00 Test Item Value Reference Range Interpretation Comments CHOLESTEROL (test code = 2210) 243 MG/DL TRIGLYCERIDES (test code = 2232) 1140 MG/DL HDL CHOLESTEROL (test code = 31 MG/DL 2220) CALC LDL CHOL (test code = 2237) NOTE MG/DL RISK RATIO LDL/HDL (test code = (NOTE) RATIO 2238) CBC W/AUTO [id number] 00:00:00 Test Item Value Reference Range Interpretation [...] code = 1015) 229 K/UL CBC W/AUTO [id number] 00:00:00 Test Item Value Reference Range Interpretation [...] code = 1015) 229 K/UL CBC W/AUTO [id number] 00:00:00 Test Item Value Reference Range Interpretation [...] (test code = 1015) 229 K/UL HEMOGLOBIN [id number] 00:00:00 Test Item Value Reference Range Interpretation Comments HEMOGLOBIN A1c (test code = 21207) 7.7 % HEMOGLOBIN [id number] 00:00:00 Test Item Value Reference Range Interpretation Comments HEMOGLOBIN A1c (test code = 81472) 7.7 % HEMOGLOBIN [id number] 00:00:00 Test Item Value Reference Range Interpretation Comments HEMOGLOBIN A1c (test code = 49637) 7.7 % LIPID [id number] 00:00:00 Test Item Value Reference Range Interpretation Comments CHOLESTEROL (test code = 2210) 243 MG/DL TRIGLYCERIDES (test code = 2232) 1140 MG/DL HDL CHOLESTEROL (test code = 31 MG/DL 2220) CALC LDL CHOL (test code = 2237) NOTE MG/DL RISK RATIO LDL/HDL (test code = (NOTE) RATIO 2238) CBC W/AUTO [id number] 00:00:00 Test Item Value Reference Range Interpretation [...] code = 1015) 229 K/UL CBC W/AUTO [id number] 00:00:00 Test Item Value Reference Range Interpretation [...] code = 1015) 229 K/UL COMPREHENSIVE METABOLIC [id number] 00:00:00 Test Item Value Reference Range Interpretation Comments GLUCOSE (test code = 2217) 154 MG/DL BUN (test code = 2208) 12 MG/DL CREATININE (test code = 2214) 0.54 MG/DL eGFR AMER. (test code 139 ML/MIN/1.73 = 05525) eGFR NON- AMER. (test 120 ML/MIN/1.73 code = 99514) CALC BUN/CREAT (test code = 22 RATIO [...] code = 2219) 22 U/L COMPREHENSIVE METABOLIC [id number] 00:00:00 Test Item Value Reference Range Interpretation Comments GLUCOSE (test code = 2217) 154 MG/DL BUN (test code = 2208) 12 MG/DL CREATININE (test code = 2214) 0.54 MG/DL eGFR AMER. (test code 139 ML/MIN/1.73 = 78377) eGFR NON- AMER. (test 120 ML/MIN/1.73 code = 23402) CALC BUN/CREAT (test code = 22 RATIO [...] (test code = 2219) 22 U/L HEMOGLOBIN [id number] 00:00:00 Test Item Value Reference Range Interpretation Comments HEMOGLOBIN A1c (test code = 73773) 7.7 % LIPID [id number] 00:00:00 Test Item Value Reference Range Interpretation Comments CHOLESTEROL (test code = 2210) 243 MG/DL TRIGLYCERIDES (test code = 2232) 1140 MG/DL HDL CHOLESTEROL (test code = 31 MG/DL 0) CALC LDL CHOL (test code = 2237) NOTE MG/DL RISK RATIO LDL/HDL (test code = (NOTE) RATIO 2238) LIPID [id number] 00:00:00 Test Item Value Reference Range Interpretation Comments CHOLESTEROL (test code = 2210) 243 MG/DL TRIGLYCERIDES (test code = 2232) 1140 MG/DL HDL CHOLESTEROL (test code = 31 MG/DL 2220) CALC LDL CHOL (test code = 2237) NOTE MG/DL RISK RATIO LDL/HDL (test code = (NOTE) RATIO 2238) HEMOGLOBIN [id number] 00:00:00 Test Item Value Reference Range Interpretation Comments HEMOGLOBIN A1c (test code = 54374) 7.7 % CBC W/AUTO [id number] 00:00:00 Test Item Value Reference Range Interpretation [...] code = 1015) 229 K/UL CBC W/AUTO [id number] 00:00:00 Test Item Value Reference Range Interpretation [...] code = 1015) 229 K/UL CBC W/AUTO [id number] 00:00:00 Test Item Value Reference Range Interpretation [...] (test code = 1015) 229 K/UL HEMOGLOBIN [id number] 00:00:00 Test Item Value Reference Range Interpretation Comments HEMOGLOBIN A1c (test code = 91170) 7.7 % HEMOGLOBIN [id number] 00:00:00 Test Item Value Reference Range Interpretation Comments HEMOGLOBIN A1c (test code = 09163) 7.7 % HEMOGLOBIN [id number] 00:00:00 Test Item Value Reference Range Interpretation Comments HEMOGLOBIN A1c (test code = 32303) 7.7 % COMPREHENSIVE METABOLIC [id number] 00:00:00 Test Item Value Reference Range Interpretation Comments GLUCOSE (test code = 2217) 154 MG/DL BUN (test code = 2208) 12 MG/DL CREATININE (test code = 2214) 0.54 MG/DL eGFR AMER. (test code 139 ML/MIN/1.73 = 03674) eGFR NON- AMER. (test 120 ML/MIN/1.73 code = 55321) CALC BUN/CREAT (test code = 22 RATIO [...] code = 2219) 22 U/L COMPREHENSIVE METABOLIC [id number] 00:00:00 Test Item Value Reference Range Interpretation Comments GLUCOSE (test code = 2217) 154 MG/DL BUN (test code = 2208) 12 MG/DL CREATININE (test code = 2214) 0.54 MG/DL eGFR AMER. (test code 139 ML/MIN/1.73 = 10093) eGFR NON- AMER. (test 120 ML/MIN/1.73 code = 59376) CALC BUN/CREAT (test code = 22 RATIO [...] (test code = 2219) 22 U/L LIPID [id number] 00:00:00 Test Item Value Reference Range Interpretation Comments CHOLESTEROL (test code = 2210) 243 MG/DL TRIGLYCERIDES (test code = 2232) 1140 MG/DL HDL CHOLESTEROL (test code = 31 MG/DL 2220) CALC LDL CHOL (test code = 2237) NOTE MG/DL RISK RATIO LDL/HDL (test code = (NOTE) RATIO 2238) LIPID [id number] 00:00:00 Test Item Value Reference Range Interpretation Comments CHOLESTEROL (test code = 2210) 243 MG/DL TRIGLYCERIDES (test code = 2232) 1140 MG/DL HDL CHOLESTEROL (test code = 31 MG/DL 2220) CALC LDL CHOL (test code = 2237) NOTE MG/DL RISK RATIO LDL/HDL (test code = (NOTE) RATIO 2238) CBC W/AUTO [id number] 00:00:00 Test Item Value Reference Range Interpretation [...] code = 1015) 229 K/UL CBC W/AUTO [id number] 00:00:00 Test Item Value Reference Range Interpretation [...] code = 1015) 229 K/UL CBC W/AUTO [id number] 00:00:00 Test Item Value Reference Range Interpretation [...] (test code = 1015) 229 K/UL HEMOGLOBIN [id number] 00:00:00 Test Item Value Reference Range Interpretation Comments HEMOGLOBIN A1c (test code = 74652) 7.7 % HEMOGLOBIN [id number] 00:00:00 Test Item Value Reference Range Interpretation Comments HEMOGLOBIN A1c (test code = 11768) 7.7 % HEMOGLOBIN [id number] 00:00:00 Test Item Value Reference Range Interpretation Comments HEMOGLOBIN A1c (test code = 14657) 7.7 % COMPREHENSIVE METABOLIC [id number] 00:00:00 Test Item Value Reference Range Interpretation Comments GLUCOSE (test code = 2217) 154 MG/DL BUN (test code = 2208) 12 MG/DL CREATININE (test code = 2214) 0.54 MG/DL eGFR AMER. (test code 139 ML/MIN/1.73 = 58347) eGFR NON- AMER. (test 120 ML/MIN/1.73 code = 54274) CALC BUN/CREAT (test code = 22 RATIO [...] code = 2219) 22 U/L COMPREHENSIVE METABOLIC [id number] 00:00:00 Test Item Value Reference Range Interpretation Comments GLUCOSE (test code = 2217) 154 MG/DL BUN (test code = 2208) 12 MG/DL CREATININE (test code = 2214) 0.54 MG/DL eGFR AMER. (test code 139 ML/MIN/1.73 = 45701) eGFR NON- AMER. (test 120 ML/MIN/1.73 code = 26681) CALC BUN/CREAT (test code = 22 RATIO [...] (test code = 2219) 22 U/L LIPID [id number] 00:00:00 Test Item Value Reference Range Interpretation Comments CHOLESTEROL (test code = 2210) 243 MG/DL TRIGLYCERIDES (test code = 2232) 1140 MG/DL HDL CHOLESTEROL (test code = 31 MG/DL 2220) CALC LDL CHOL (test code = 2237) NOTE MG/DL RISK RATIO LDL/HDL (test code = (NOTE) RATIO 2238) LIPID [id number] 00:00:00 Test Item Value Reference Range Interpretation Comments CHOLESTEROL (test code = 2210) 243 MG/DL TRIGLYCERIDES (test code = 2232) 1140 MG/DL HDL CHOLESTEROL (test code = 31 MG/DL 2220) CALC LDL CHOL (test code = 2237) NOTE MG/DL RISK RATIO LDL/HDL (test code = (NOTE) RATIO 2238) CBC W/AUTO [id number] 00:00:00 Test Item Value Reference Range Interpretation [...] code = 1015) 229 K/UL CBC W/AUTO [id number] 00:00:00 Test Item Value Reference Range Interpretation [...] code = 1015) 229 K/UL CBC W/AUTO [id number] 00:00:00 Test Item Value Reference Range Interpretation [...] (test code = 1015) 229 K/UL HEMOGLOBIN [id number] 00:00:00 Test Item Value Reference Range Interpretation Comments HEMOGLOBIN A1c (test code = 24945) 7.7 % HEMOGLOBIN [id number] 00:00:00 Test Item Value Reference Range Interpretation Comments HEMOGLOBIN A1c (test code = 82615) 7.7 % HEMOGLOBIN [id number] 00:00:00 Test Item Value Reference Range Interpretation Comments HEMOGLOBIN A1c (test code = 74576) 7.7 % [id number] 00:00:00 Test Item Value Reference Range Interpretation Comments MAGNESIUM (test code = 2226) 1.4 MG/DL [id number] 00:00:00 Test Item Value Reference Range Interpretation Comments MAGNESIUM (test code = 2226) 1.4 MG/DL [id number] 00:00:00 Test Item Value Reference Range Interpretation Comments MAGNESIUM (test code = 2226) 1.4 MG/DL COMPREHENSIVE METABOLIC [id number] 00:00:00 Test Item Value Reference Range Interpretation Comments GLUCOSE (test code = 2217) 234 MG/DL BUN (test code = 2208) 17 MG/DL CREATININE (test code = 2214) 0.54 MG/DL eGFR AMER. (test code 139 ML/MIN/1.73 = 12405) eGFR NON- AMER. (test 120 ML/MIN/1.73 code = 75811) CALC BUN/CREAT (test code = 31 RATIO [...] code = 2219) 22 U/L COMPREHENSIVE METABOLIC [id number] 00:00:00 Test Item Value Reference Range Interpretation Comments GLUCOSE (test code = 2217) 234 MG/DL BUN (test code = 2208) 17 MG/DL CREATININE (test code = 2214) 0.54 MG/DL eGFR AMER. (test code 139 ML/MIN/1.73 = 66905) eGFR NON- AMER. (test 120 ML/MIN/1.73 code = 57140) CALC BUN/CREAT (test code = 31 RATIO [...] (test code = 2219) 22 U/L HEMOGLOBIN [id number] 00:00:00 Test Item Value Reference Range Interpretation Comments HEMOGLOBIN A1c (test code = 19501) 7.7 % HEMOGLOBIN [id number] 00:00:00 Test Item Value Reference Range Interpretation Comments HEMOGLOBIN A1c (test code = 97370) 7.7 % HEMOGLOBIN [id number] 00:00:00 Test Item Value Reference Range Interpretation Comments HEMOGLOBIN A1c (test code = 87908) 7.7 % CBC W/AUTO [id number] 00:00:00 Test Item Value Reference Range Interpretation [...] code = 1015) 224 K/UL CBC W/AUTO [id number] 00:00:00 Test Item Value Reference Range Interpretation [...] code = 1015) 224 K/UL CBC W/AUTO [id number] 00:00:00 Test Item Value Reference Range Interpretation [...] TSH (test code = 2821) <0.10 UIU/ML [id number] 00:00:00 Test Item Value Reference Range Interpretation Comments MAGNESIUM (test code = 2226) 1.4 MG/DL [id number] 00:00:00 Test Item Value Reference Range Interpretation Comments MAGNESIUM (test code = 2226) 1.4 MG/DL [id number] 00:00:00 Test Item Value Reference Range Interpretation Comments MAGNESIUM (test code = 2226) 1.4 MG/DL COMPREHENSIVE METABOLIC [id number] 00:00:00 Test Item Value Reference Range Interpretation Comments GLUCOSE (test code = 2217) 234 MG/DL BUN (test code = 2208) 17 MG/DL CREATININE (test code = 2214) 0.54 MG/DL eGFR AMER. (test code 139 ML/MIN/1.73 = 40041) eGFR NON- AMER. (test 120 ML/MIN/1.73 code = 89964) CALC BUN/CREAT (test code = 31 RATIO [...] code = 2219) 22 U/L COMPREHENSIVE METABOLIC [id number] 00:00:00 Test Item Value Reference Range Interpretation Comments GLUCOSE (test code = 2217) 234 MG/DL BUN (test code = 2208) 17 MG/DL CREATININE (test code = 2214) 0.54 MG/DL eGFR AMER. (test code 139 ML/MIN/1.73 = 56992) eGFR NON- AMER. (test 120 ML/MIN/1.73 code = 03784) CALC BUN/CREAT (test code = 31 RATIO [...] (test code = 2219) 22 U/L HEMOGLOBIN [id number] 00:00:00 Test Item Value Reference Range Interpretation Comments HEMOGLOBIN A1c (test code = 70029) 7.7 % HEMOGLOBIN [id number] 00:00:00 Test Item Value Reference Range Interpretation Comments HEMOGLOBIN A1c (test code = 28884) 7.7 % HEMOGLOBIN [id number] 00:00:00 Test Item Value Reference Range Interpretation Comments HEMOGLOBIN A1c (test code = 46876) 7.7 % CBC W/AUTO [id number] 00:00:00 Test Item Value Reference Range Interpretation [...] code = 1015) 224 K/UL CBC W/AUTO [id number] 00:00:00 Test Item Value Reference Range Interpretation [...] code = 1015) 224 K/UL CBC W/AUTO [id number] 00:00:00 Test Item Value Reference Range Interpretation [...] TSH (test code = 2821) <0.10 UIU/ML [id number] 00:00:00 Test Item Value Reference Range Interpretation Comments MAGNESIUM (test code = 2226) 1.4 MG/DL [id number] 00:00:00 Test Item Value Reference Range Interpretation Comments MAGNESIUM (test code = 2226) 1.4 MG/DL [id number] 00:00:00 Test Item Value Reference Range Interpretation Comments MAGNESIUM (test code = 2226) 1.4 MG/DL COMPREHENSIVE METABOLIC [id number] 00:00:00 Test Item Value Reference Range Interpretation Comments GLUCOSE (test code = 2217) 234 MG/DL BUN (test code = 2208) 17 MG/DL CREATININE (test code = 2214) 0.54 MG/DL eGFR AMER. (test code 139 ML/MIN/1.73 = 49330) eGFR NON- AMER. (test 120 ML/MIN/1.73 code = 67387) CALC BUN/CREAT (test code = 31 RATIO [...] code = 2219) 22 U/L COMPREHENSIVE METABOLIC [id number] 00:00:00 Test Item Value Reference Range Interpretation Comments GLUCOSE (test code = 2217) 234 MG/DL BUN (test code = 2208) 17 MG/DL CREATININE (test code = 2214) 0.54 MG/DL eGFR AMER. (test code 139 ML/MIN/1.73 = 51616) eGFR NON- AMER. (test 120 ML/MIN/1.73 code = 14540) CALC BUN/CREAT (test code = 31 RATIO [...] (test code = 2219) 22 U/L HEMOGLOBIN [id number] 00:00:00 Test Item Value Reference Range Interpretation Comments HEMOGLOBIN A1c (test code = 33030) 7.7 % HEMOGLOBIN [id number] 00:00:00 Test Item Value Reference Range Interpretation Comments HEMOGLOBIN A1c (test code = 62640) 7.7 % HEMOGLOBIN [id number] 00:00:00 Test Item Value Reference Range Interpretation Comments HEMOGLOBIN A1c (test code = 56965) 7.7 % CBC W/AUTO [id number] 00:00:00 Test Item Value Reference Range Interpretation [...] code = 1015) 224 K/UL CBC W/AUTO [id number] 00:00:00 Test Item Value Reference Range Interpretation [...] code = 1015) 224 K/UL CBC W/AUTO [id number] 00:00:00 Test Item Value Reference Range Interpretation [...] TSH (test code = 2821) <0.10 UIU/ML [id number] 00:00:00 Test Item Value Reference Range Interpretation Comments MAGNESIUM (test code = 2226) 1.4 MG/DL [id number] 00:00:00 Test Item Value Reference Range Interpretation Comments MAGNESIUM (test code = 2226) 1.4 MG/DL [id number] 00:00:00 Test Item Value Reference Range Interpretation Comments MAGNESIUM (test code = 2226) 1.4 MG/DL COMPREHENSIVE METABOLIC [id number] 00:00:00 Test Item Value Reference Range Interpretation Comments GLUCOSE (test code = 2217) 234 MG/DL BUN (test code = 2208) 17 MG/DL CREATININE (test code = 2214) 0.54 MG/DL eGFR AMER. (test code 139 ML/MIN/1.73 = 79476) eGFR NON- AMER. (test 120 ML/MIN/1.73 code = 25850) CALC BUN/CREAT (test code = 31 RATIO [...] code = 2219) 22 U/L COMPREHENSIVE METABOLIC [id number] 00:00:00 Test Item Value Reference Range Interpretation Comments GLUCOSE (test code = 2217) 234 MG/DL BUN (test code = 2208) 17 MG/DL CREATININE (test code = 2214) 0.54 MG/DL eGFR AMER. (test code 139 ML/MIN/1.73 = 52766) eGFR NON- AMER. (test 120 ML/MIN/1.73 code = 56904) CALC BUN/CREAT (test code = 31 RATIO [...] (test code = 2219) 22 U/L HEMOGLOBIN [id number] 00:00:00 Test Item Value Reference Range Interpretation Comments HEMOGLOBIN A1c (test code = 27161) 7.7 % HEMOGLOBIN [id number] 00:00:00 Test Item Value Reference Range Interpretation Comments HEMOGLOBIN A1c (test code = 66970) 7.7 % HEMOGLOBIN [id number] 00:00:00 Test Item Value Reference Range Interpretation Comments HEMOGLOBIN A1c (test code = 50474) 7.7 % CBC W/AUTO [id number] 00:00:00 Test Item Value Reference Range Interpretation [...] code = 1015) 224 K/UL CBC W/AUTO [id number] 00:00:00 Test Item Value Reference Range Interpretation [...] code = 1015) 224 K/UL CBC W/AUTO [id number] 00:00:00 Test Item Value Reference Range Interpretation [...] TSH (test code = 2821) <0.10 UIU/ML [id number] 00:00:00 Test Item Value Reference Range Interpretation Comments MAGNESIUM (test code = 2226) 1.4 MG/DL [id number] 00:00:00 Test Item Value Reference Range Interpretation Comments MAGNESIUM (test code = 2226) 1.4 MG/DL [id number] 00:00:00 Test Item Value Reference Range Interpretation Comments MAGNESIUM (test code = 2226) 1.4 MG/DL COMPREHENSIVE METABOLIC [id number] 00:00:00 Test Item Value Reference Range Interpretation Comments GLUCOSE (test code = 2217) 234 MG/DL BUN (test code = 2208) 17 MG/DL CREATININE (test code = 2214) 0.54 MG/DL eGFR AMER. (test code 139 ML/MIN/1.73 = 28279) eGFR NON- AMER. (test 120 ML/MIN/1.73 code = 34928) CALC BUN/CREAT (test code = 31 RATIO [...] code = 2219) 22 U/L COMPREHENSIVE METABOLIC [id number] 00:00:00 Test Item Value Reference Range Interpretation Comments GLUCOSE (test code = 2217) 234 MG/DL BUN (test code = 2208) 17 MG/DL CREATININE (test code = 2214) 0.54 MG/DL eGFR AMER. (test code 139 ML/MIN/1.73 = 69203) eGFR NON- AMER. (test 120 ML/MIN/1.73 code = 38778) CALC BUN/CREAT (test code = 31 RATIO [...] (test code = 2219) 22 U/L HEMOGLOBIN [id number] 00:00:00 Test Item Value Reference Range Interpretation Comments HEMOGLOBIN A1c (test code = 21344) 7.7 % HEMOGLOBIN [id number] 00:00:00 Test Item Value Reference Range Interpretation Comments HEMOGLOBIN A1c (test code = 32931) 7.7 % HEMOGLOBIN [id number] 00:00:00 Test Item Value Reference Range Interpretation Comments HEMOGLOBIN A1c (test code = 73331) 7.7 % CBC W/AUTO [id number] 00:00:00 Test Item Value Reference Range Interpretation [...] code = 1015) 224 K/UL CBC W/AUTO [id number] 00:00:00 Test Item Value Reference Range Interpretation [...] code = 1015) 224 K/UL CBC W/AUTO [id number] 00:00:00 Test Item Value Reference Range Interpretation [...] TSH (test code = 2821) <0.10 UIU/ML [id number] 00:00:00 Test Item Value Reference Range Interpretation Comments MAGNESIUM (test code = 2226) 1.4 MG/DL [id number] 00:00:00 Test Item Value Reference Range Interpretation Comments MAGNESIUM (test code = 2226) 1.4 MG/DL [id number] 00:00:00 Test Item Value Reference Range Interpretation Comments MAGNESIUM (test code = 2226) 1.4 MG/DL COMPREHENSIVE METABOLIC [id number] 00:00:00 Test Item Value Reference Range Interpretation Comments GLUCOSE (test code = 2217) 234 MG/DL BUN (test code = 2208) 17 MG/DL CREATININE (test code = 2214) 0.54 MG/DL eGFR AMER. (test code 139 ML/MIN/1.73 = 63004) eGFR NON- AMER. (test 120 ML/MIN/1.73 code = 76370) CALC BUN/CREAT (test code = 31 RATIO [...] code = 2219) 22 U/L COMPREHENSIVE METABOLIC [id number] 00:00:00 Test Item Value Reference Range Interpretation Comments GLUCOSE (test code = 2217) 234 MG/DL BUN (test code = 2208) 17 MG/DL CREATININE (test code = 2214) 0.54 MG/DL eGFR AMER. (test code 139 ML/MIN/1.73 = 53929) eGFR NON- AMER. (test 120 ML/MIN/1.73 code = 77089) CALC BUN/CREAT (test code = 31 RATIO [...] (test code = 2219) 22 U/L HEMOGLOBIN [id number] 00:00:00 Test Item Value Reference Range Interpretation Comments HEMOGLOBIN A1c (test code = 24882) 7.7 % HEMOGLOBIN [id number] 00:00:00 Test Item Value Reference Range Interpretation Comments HEMOGLOBIN A1c (test code = 24888) 7.7 % HEMOGLOBIN [id number] 00:00:00 Test Item Value Reference Range Interpretation Comments HEMOGLOBIN A1c (test code = 19246) 7.7 % CBC W/AUTO [id number] 00:00:00 Test Item Value Reference Range Interpretation [...] code = 1015) 224 K/UL CBC W/AUTO [id number] 00:00:00 Test Item Value Reference Range Interpretation [...] code = 1015) 224 K/UL CBC W/AUTO [id number] 00:00:00 Test Item Value Reference Range Interpretation [...] TSH (test code = 2821) <0.10 UIU/ML [id number] 00:00:00 Test Item Value Reference Range Interpretation Comments MAGNESIUM (test code = 2226) 1.4 MG/DL [id number] 00:00:00 Test Item Value Reference Range Interpretation Comments MAGNESIUM (test code = 2226) 1.4 MG/DL [id number] 00:00:00 Test Item Value Reference Range Interpretation Comments MAGNESIUM (test code = 2226) 1.4 MG/DL [id number] 00:00:00 Test Item Value Reference Range Interpretation Comments MAGNESIUM (test code = 2226) 1.4 MG/DL COMPREHENSIVE METABOLIC [id number] 00:00:00 Test Item Value Reference Range Interpretation Comments GLUCOSE (test code = 2217) 234 MG/DL BUN (test code = 2208) 17 MG/DL CREATININE (test code = 2214) 0.54 MG/DL eGFR AMER. (test code 139 ML/MIN/1.73 = 00174) eGFR NON- AMER. (test 120 ML/MIN/1.73 code = 20797) CALC BUN/CREAT (test code = 31 RATIO [...] code = 2219) 22 U/L COMPREHENSIVE METABOLIC [id number] 00:00:00 Test Item Value Reference Range Interpretation Comments GLUCOSE (test code = 2217) 234 MG/DL BUN (test code = 2208) 17 MG/DL CREATININE (test code = 2214) 0.54 MG/DL eGFR AMER. (test code 139 ML/MIN/1.73 = 29228) eGFR NON- AMER. (test 120 ML/MIN/1.73 code = 62142) CALC BUN/CREAT (test code = 31 RATIO [...] (test code = 2219) 22 U/L HEMOGLOBIN [id number] 00:00:00 Test Item Value Reference Range Interpretation Comments HEMOGLOBIN A1c (test code = 47024) 7.7 % HEMOGLOBIN [id number] 00:00:00 Test Item Value Reference Range Interpretation Comments HEMOGLOBIN A1c (test code = 48214) 7.7 % HEMOGLOBIN [id number] 00:00:00 Test Item Value Reference Range Interpretation Comments HEMOGLOBIN A1c (test code = 79391) 7.7 % [id number] 00:00:00 Test Item Value Reference Range Interpretation Comments MAGNESIUM (test code = 2226) 1.4 MG/DL CBC W/AUTO [id number] 00:00:00 Test Item Value Reference Range Interpretation [...] code = 1015) 224 K/UL CBC W/AUTO [id number] 00:00:00 Test Item Value Reference Range Interpretation [...] code = 1015) 224 K/UL CBC W/AUTO [id number] 00:00:00 Test Item Value Reference Range Interpretation [...] code = 2821) <0.10 UIU/ML COMPREHENSIVE METABOLIC [id number] 00:00:00 Test Item Value Reference Range Interpretation Comments GLUCOSE (test code = 2217) 234 MG/DL BUN (test code = 2208) 17 MG/DL CREATININE (test code = 2214) 0.54 MG/DL eGFR AMER. (test code 139 ML/MIN/1.73 = 12206) eGFR NON- AMER. (test 120 ML/MIN/1.73 code = 04989) CALC BUN/CREAT (test code = 31 RATIO [...] (test code = 2219) 22 U/L HEMOGLOBIN [id number] 00:00:00 Test Item Value Reference Range Interpretation Comments HEMOGLOBIN A1c (test code = 52152) 7.7 % HEMOGLOBIN [id number] 00:00:00 Test Item Value Reference Range Interpretation Comments HEMOGLOBIN A1c (test code = 50775) 7.7 % [id number] 00:00:00 Test Item Value Reference Range Interpretation Comments MAGNESIUM (test code = 2226) 1.4 MG/DL [id number] 00:00:00 Test Item Value Reference Range Interpretation Comments MAGNESIUM (test code = 2226) 1.4 MG/DL [id number] 00:00:00 Test Item Value Reference Range Interpretation Comments MAGNESIUM (test code = 2226) 1.4 MG/DL CBC W/AUTO [id number] 00:00:00 Test Item Value Reference Range Interpretation [...] code = 1015) 224 K/UL COMPREHENSIVE METABOLIC [id number] 00:00:00 Test Item Value Reference Range Interpretation Comments GLUCOSE (test code = 2217) 234 MG/DL BUN (test code = 2208) 17 MG/DL CREATININE (test code = 2214) 0.54 MG/DL eGFR AMER. (test code 139 ML/MIN/1.73 = 95775) eGFR NON- AMER. (test 120 ML/MIN/1.73 code = 31840) CALC BUN/CREAT (test code = 31 RATIO [...] code = 2219) 22 U/L CBC W/AUTO [id number] 00:00:00 Test Item Value Reference Range Interpretation [...] code = 1015) 224 K/UL COMPREHENSIVE METABOLIC [id number] 00:00:00 Test Item Value Reference Range Interpretation Comments GLUCOSE (test code = 2217) 234 MG/DL BUN (test code = 2208) 17 MG/DL CREATININE (test code = 2214) 0.54 MG/DL eGFR AMER. (test code 139 ML/MIN/1.73 = 28015) eGFR NON- AMER. (test 120 ML/MIN/1.73 code = 71400) CALC BUN/CREAT (test code = 31 RATIO [...] (test code = 2219) 22 U/L HEMOGLOBIN [id number] 00:00:00 Test Item Value Reference Range Interpretation Comments HEMOGLOBIN A1c (test code = 34256) 7.7 % HEMOGLOBIN [id number] 00:00:00 Test Item Value Reference Range Interpretation Comments HEMOGLOBIN A1c (test code = 04527) 7.7 % HEMOGLOBIN [id number] 00:00:00 Test Item Value Reference Range Interpretation Comments HEMOGLOBIN A1c (test code = 30933) 7.7 % THYROID II PROFILE (T3U, T4, T7, TSH)[id number] 00:00:00 Test Item Value Reference Range Interpretation Comments T3 UPTAKE (test code = 2817) 24.7 % T4 (THYROXINE) (test code = 3.7 UG/DL 2819) CALCULATED T7 (FTI) (test code = 0.91 2820) TSH (test code = 2821) <0.10 UIU/ML CBC W/AUTO [id number] 00:00:00 Test Item Value Reference Range Interpretation [...] code = 1015) 224 K/UL CBC W/AUTO [id number] 00:00:00 Test Item Value Reference Range Interpretation [...] code = 1015) 224 K/UL CBC W/AUTO [id number] 00:00:00 Test Item Value Reference Range Interpretation [...] TSH (test code = 2821) <0.10 UIU/ML [id number] 00:00:00 Test Item Value Reference Range Interpretation Comments MAGNESIUM (test code = 2226) 1.4 MG/DL [id number] 00:00:00 Test Item Value Reference Range Interpretation Comments MAGNESIUM (test code = 2226) 1.4 MG/DL [id number] 00:00:00 Test Item Value Reference Range Interpretation Comments MAGNESIUM (test code = 2226) 1.4 MG/DL COMPREHENSIVE METABOLIC [id number] 00:00:00 Test Item Value Reference Range Interpretation Comments GLUCOSE (test code = 2217) 234 MG/DL BUN (test code = 2208) 17 MG/DL CREATININE (test code = 2214) 0.54 MG/DL eGFR AMER. (test code 139 ML/MIN/1.73 = 50536) eGFR NON- AMER. (test 120 ML/MIN/1.73 code = 34440) CALC BUN/CREAT (test code = 31 RATIO [...] code = 2219) 22 U/L COMPREHENSIVE METABOLIC [id number] 00:00:00 Test Item Value Reference Range Interpretation Comments GLUCOSE (test code = 2217) 234 MG/DL BUN (test code = 2208) 17 MG/DL CREATININE (test code = 2214) 0.54 MG/DL eGFR AMER. (test code 139 ML/MIN/1.73 = 17039) eGFR NON- AMER. (test 120 ML/MIN/1.73 code = 84381) CALC BUN/CREAT (test code = 31 RATIO [...] (test code = 2219) 22 U/L HEMOGLOBIN [id number] 00:00:00 Test Item Value Reference Range Interpretation Comments HEMOGLOBIN A1c (test code = 22441) 7.7 % HEMOGLOBIN [id number] 00:00:00 Test Item Value Reference Range Interpretation Comments HEMOGLOBIN A1c (test code = 24457) 7.7 % HEMOGLOBIN [id number] 00:00:00 Test Item Value Reference Range Interpretation Comments HEMOGLOBIN A1c (test code = 73955) 7.7 % CBC W/AUTO [id number] 00:00:00 Test Item Value Reference Range Interpretation [...] code = 1015) 224 K/UL CBC W/AUTO [id number] 00:00:00 Test Item Value Reference Range Interpretation [...] code = 1015) 224 K/UL CBC W/AUTO [id number] 00:00:00 Test Item Value Reference Range Interpretation [...] TSH (test code = 2821) <0.10 UIU/ML [id number] 00:00:00 Test Item Value Reference Range Interpretation Comments MAGNESIUM (test code = 2226) 1.4 MG/DL [id number] 00:00:00 Test Item Value Reference Range Interpretation Comments MAGNESIUM (test code = 2226) 1.4 MG/DL [id number] 00:00:00 Test Item Value Reference Range Interpretation Comments MAGNESIUM (test code = 2226) 1.4 MG/DL COMPREHENSIVE METABOLIC [id number] 00:00:00 Test Item Value Reference Range Interpretation Comments GLUCOSE (test code = 2217) 234 MG/DL BUN (test code = 2208) 17 MG/DL CREATININE (test code = 2214) 0.54 MG/DL eGFR AMER. (test code 139 ML/MIN/1.73 = 27520) eGFR NON- AMER. (test 120 ML/MIN/1.73 code = 52264) CALC BUN/CREAT (test code = 31 RATIO [...] code = 2219) 22 U/L COMPREHENSIVE METABOLIC [id number] 00:00:00 Test Item Value Reference Range Interpretation Comments GLUCOSE (test code = 2217) 234 MG/DL BUN (test code = 2208) 17 MG/DL CREATININE (test code = 2214) 0.54 MG/DL eGFR AMER. (test code 139 ML/MIN/1.73 = 85759) eGFR NON- AMER. (test 120 ML/MIN/1.73 code = 78696) CALC BUN/CREAT (test code = 31 RATIO [...] (test code = 2219) 22 U/L HEMOGLOBIN [id number] 00:00:00 Test Item Value Reference Range Interpretation Comments HEMOGLOBIN A1c (test code = 45643) 7.7 % HEMOGLOBIN [id number] 00:00:00 Test Item Value Reference Range Interpretation Comments HEMOGLOBIN A1c (test code = 31218) 7.7 % HEMOGLOBIN [id number] 00:00:00 Test Item Value Reference Range Interpretation Comments HEMOGLOBIN A1c (test code = 51027) 7.7 % CBC W/AUTO [id number] 00:00:00 Test Item Value Reference Range Interpretation [...] code = 1015) 224 K/UL CBC W/AUTO [id number] 00:00:00 Test Item Value Reference Range Interpretation [...] code = 1015) 224 K/UL CBC W/AUTO [id number] 00:00:00 Test Item Value Reference Range Interpretation [...] <0.10 UIU/ML MARKO (ANTI-NUCLEAR AB) WITH REFLEX [id number] 00:00:00 Test Item Value Reference Range Interpretation Comments ANTI-NUCLEAR ANTIBODIES (test code = NEGATIVE 3506) MARKO (ANTI-NUCLEAR AB) WITH REFLEX [id number] 00:00:00 Test Item Value Reference Range Interpretation Comments ANTI-NUCLEAR ANTIBODIES (test code = NEGATIVE 3506) DHEA [id number] 00:00:00 Test Item Value Reference Range Interpretation Comments DHEA SULFATE (test code = 4225) 77 UG/DL DHEA [id number] 00:00:00 Test Item Value Reference Range Interpretation Comments DHEA SULFATE (test code = 4225) 77 UG/DL MARKO (ANTI-NUCLEAR AB) WITH REFLEX [id number] 00:00:00 Test Item Value Reference Range Interpretation Comments ANTI-NUCLEAR ANTIBODIES (test code = NEGATIVE 3506) MARKO (ANTI-NUCLEAR AB) WITH REFLEX [id number] 00:00:00 Test Item Value Reference Range Interpretation Comments ANTI-NUCLEAR ANTIBODIES (test code = NEGATIVE 3506) DHEA [id number] 00:00:00 Test Item Value Reference Range Interpretation Comments DHEA SULFATE (test code = 4225) 77 UG/DL DHEA [id number] 00:00:00 Test Item Value Reference Range Interpretation Comments DHEA SULFATE (test code = 4225) 77 UG/DL MARKO (ANTI-NUCLEAR AB) WITH REFLEX [id number] 00:00:00 Test Item Value Reference Range Interpretation Comments ANTI-NUCLEAR ANTIBODIES (test code = NEGATIVE 3506) MARKO (ANTI-NUCLEAR AB) WITH REFLEX [id number] 00:00:00 Test Item Value Reference Range Interpretation Comments ANTI-NUCLEAR ANTIBODIES (test code = NEGATIVE 3506) DHEA [id number] 00:00:00 Test Item Value Reference Range Interpretation Comments DHEA SULFATE (test code = 4225) 77 UG/DL DHEA [id number] 00:00:00 Test Item Value Reference Range Interpretation Comments DHEA SULFATE (test code = 4225) 77 UG/DL MARKO (ANTI-NUCLEAR AB) WITH REFLEX [id number] 00:00:00 Test Item Value Reference Range Interpretation Comments ANTI-NUCLEAR ANTIBODIES (test code = NEGATIVE 3506) MARKO (ANTI-NUCLEAR AB) WITH REFLEX [id number] 00:00:00 Test Item Value Reference Range Interpretation Comments ANTI-NUCLEAR ANTIBODIES (test code = NEGATIVE 3506) DHEA [id number] 00:00:00 Test Item Value Reference Range Interpretation Comments DHEA SULFATE (test code = 4225) 77 UG/DL DHEA [id number] 00:00:00 Test Item Value Reference Range Interpretation Comments DHEA SULFATE (test code = 4225) 77 UG/DL MARKO (ANTI-NUCLEAR AB) WITH REFLEX [id number] 00:00:00 Test Item Value Reference Range Interpretation Comments ANTI-NUCLEAR ANTIBODIES (test code = NEGATIVE 3506) MARKO (ANTI-NUCLEAR AB) WITH REFLEX [id number] 00:00:00 Test Item Value Reference Range Interpretation Comments ANTI-NUCLEAR ANTIBODIES (test code = NEGATIVE 3506) DHEA [id number] 00:00:00 Test Item Value Reference Range Interpretation Comments DHEA SULFATE (test code = 4225) 77 UG/DL DHEA [id number] 00:00:00 Test Item Value Reference Range Interpretation Comments DHEA SULFATE (test code = 4225) 77 UG/DL MARKO (ANTI-NUCLEAR AB) WITH REFLEX [id number] 00:00:00 Test Item Value Reference Range Interpretation Comments ANTI-NUCLEAR ANTIBODIES (test code = NEGATIVE 3506) MARKO (ANTI-NUCLEAR AB) WITH REFLEX [id number] 00:00:00 Test Item Value Reference Range Interpretation Comments ANTI-NUCLEAR ANTIBODIES (test code = NEGATIVE 3506) DHEA [id number] 00:00:00 Test Item Value Reference Range Interpretation Comments DHEA SULFATE (test code = 4225) 77 UG/DL DHEA [id number] 00:00:00 Test Item Value Reference Range Interpretation Comments DHEA SULFATE (test code = 4225) 77 UG/DL MARKO (ANTI-NUCLEAR AB) WITH REFLEX [id number] 00:00:00 Test Item Value Reference Range Interpretation Comments ANTI-NUCLEAR ANTIBODIES (test code = NEGATIVE 3506) MARKO (ANTI-NUCLEAR AB) WITH REFLEX [id number] 00:00:00 Test Item Value Reference Range Interpretation Comments ANTI-NUCLEAR ANTIBODIES (test code = NEGATIVE 3506) DHEA [id number] 00:00:00 Test Item Value Reference Range Interpretation Comments DHEA SULFATE (test code = 4225) 77 UG/DL DHEA [id number] 00:00:00 Test Item Value Reference Range Interpretation Comments DHEA SULFATE (test code = 4225) 77 UG/DL MARKO (ANTI-NUCLEAR AB) WITH REFLEX [id number] 00:00:00 Test Item Value Reference Range Interpretation Comments ANTI-NUCLEAR ANTIBODIES (test code = NEGATIVE 3506) MARKO (ANTI-NUCLEAR AB) WITH REFLEX [id number] 00:00:00 Test Item Value Reference Range Interpretation Comments ANTI-NUCLEAR ANTIBODIES (test code = NEGATIVE 3506) MARKO (ANTI-NUCLEAR AB) WITH REFLEX [id number] 00:00:00 Test Item Value Reference Range Interpretation Comments ANTI-NUCLEAR ANTIBODIES (test code = NEGATIVE 3506) DHEA [id number] 00:00:00 Test Item Value Reference Range Interpretation Comments DHEA SULFATE (test code = 4225) 77 UG/DL DHEA [id number] 00:00:00 Test Item Value Reference Range Interpretation Comments DHEA SULFATE (test code = 4225) 77 UG/DL DHEA [id number] 00:00:00 Test Item Value Reference Range Interpretation Comments DHEA SULFATE (test code = 4225) 77 UG/DL MARKO (ANTI-NUCLEAR AB) WITH REFLEX [id number] 00:00:00 Test Item Value Reference Range Interpretation Comments ANTI-NUCLEAR ANTIBODIES (test code = NEGATIVE 3506) MARKO (ANTI-NUCLEAR AB) WITH REFLEX [id number] 00:00:00 Test Item Value Reference Range Interpretation Comments ANTI-NUCLEAR ANTIBODIES (test code = NEGATIVE 3506) DHEA [id number] 00:00:00 Test Item Value Reference Range Interpretation Comments DHEA SULFATE (test code = 4225) 77 UG/DL DHEA [id number] 00:00:00 Test Item Value Reference Range Interpretation Comments DHEA SULFATE (test code = 4225) 77 UG/DL MARKO (ANTI-NUCLEAR AB) WITH REFLEX [id number] 00:00:00 Test Item Value Reference Range Interpretation Comments ANTI-NUCLEAR ANTIBODIES (test code = NEGATIVE 3506) MARKO (ANTI-NUCLEAR AB) WITH REFLEX [id number] 00:00:00 Test Item Value Reference Range Interpretation Comments ANTI-NUCLEAR ANTIBODIES (test code = NEGATIVE 3506) DHEA [id number] 00:00:00 Test Item Value Reference Range Interpretation Comments DHEA SULFATE (test code = 4225) 77 UG/DL DHEA [id number] 00:00:00 Test Item Value Reference Range Interpretation Comments DHEA SULFATE (test code = 4225) 77 UG/DL VITAMIN D,1,37-[id number] 00:00:00 Test Item Value Reference Range Interpretation Comments VITAMIN D,1,25-DIHYDROXY (test 11.3 PG/ML code = 4960) VITAMIN D,1,40-[id number] 00:00:00 Test Item Value Reference Range Interpretation Comments VITAMIN D,1,25-DIHYDROXY (test 11.3 PG/ML code = 4960) VITAMIN B 12 AND FOLIC [id number] 00:00:00 Test Item Value Reference Range Interpretation Comments VITAMIN B-12 (test code = 2840) 925 PG/ML FOLIC ACID (test code = 2695) >24.0 NG/ML VITAMIN B 12 AND FOLIC [id number] 00:00:00 Test Item Value Reference Range Interpretation [...] (test code = 2821) 0.4 UIU/ML LIPID [id number] 00:00:00 Test Item Value Reference Range Interpretation Comments CHOLESTEROL (test code = 2210) 172 MG/DL TRIGLYCERIDES (test code = 2232) 136 MG/DL HDL CHOLESTEROL (test code = 2220) 44 MG/DL CALC LDL CHOL (test code = 2237) 101 MG/DL RISK RATIO LDL/HDL (test code = 2.29 RATIO 2238) LIPID [id number] 00:00:00 Test Item Value Reference Range Interpretation Comments CHOLESTEROL (test code = 2210) 172 MG/DL TRIGLYCERIDES (test code = 2232) 136 MG/DL HDL CHOLESTEROL (test code = 2220) 44 MG/DL CALC LDL CHOL (test code = 2237) 101 MG/DL RISK RATIO LDL/HDL (test code = 2.29 RATIO 2238) [id number] 00:00:00 Test Item Value Reference Range Interpretation Comments TESTOSTERONE (test code = 2830) <12 NG/DL TESTOSTERONE REF RANGE (test code = (NOTE) 89367) [id number] 00:00:00 Test Item Value Reference Range Interpretation Comments TESTOSTERONE (test code = 2830) <12 NG/DL TESTOSTERONE REF RANGE (test code = (NOTE) 63371) [id number] 00:00:00 Test Item Value Reference Range Interpretation Comments PROLACTIN (test code = 2800) 5.8 NG/ML [id number] 00:00:00 Test Item Value Reference Range Interpretation Comments PROLACTIN (test code = 2800) 5.8 NG/ML FSH + LH [id number] 00:00:00 Test Item Value Reference Range Interpretation Comments FOLLICLE STIM HORMONE (test code = 8.9 MIU/ML 2700) LUTEINIZING HORMONE (test code = 6.5 MIU/ML 2776) FSH + LH [id number] 00:00:00 Test Item Value Reference Range Interpretation Comments FOLLICLE STIM HORMONE (test code = 8.9 MIU/ML 2700) LUTEINIZING HORMONE (test code = 6.5 MIU/ML 2776) VITAMIN D,1,48-[id number] 00:00:00 Test Item Value Reference Range Interpretation Comments VITAMIN D,1,25-DIHYDROXY (test 11.3 PG/ML code = 4960) VITAMIN D,1,06-[id number] 00:00:00 Test Item Value Reference Range Interpretation Comments VITAMIN D,1,25-DIHYDROXY (test 11.3 PG/ML code = 4960) VITAMIN B 12 AND FOLIC [id number] 00:00:00 Test Item Value Reference Range Interpretation Comments VITAMIN B-12 (test code = 2840) 925 PG/ML FOLIC ACID (test code = 2695) >24.0 NG/ML VITAMIN B 12 AND FOLIC [id number] 00:00:00 Test Item Value Reference Range Interpretation Comments VITAMIN B-12 (test code = 2840) 925 PG/ML FOLIC ACID (test code = 2695) >24.0 NG/ML THYROID II PROFILE (T3U, T4, T7, TSH)2016-03-22 00:00:00 Test Item Value Reference Range Interpretation Comments T3 UPTAKE (test code = 2817) 31.0 % T4 (THYROXINE) (test code = 2819) 7.4 UG/DL CALCULATED T7 (FTI) (test code = 2.29 9360) TSH (test code = 2821) 0.4 UIU/ML THYROID II PROFILE (T3U, T4, T7, TSH)2016-03-22 00:00:00 Test Item Value Reference Range Interpretation Comments T3 UPTAKE (test code = 2817) 31.0 % T4 (THYROXINE) (test code = 2819) 7.4 UG/DL CALCULATED T7 (FTI) (test code = 2.29 2820) TSH (test code = 2821) 0.4 UIU/ML LIPID [id number] 00:00:00 Test Item Value Reference Range Interpretation Comments CHOLESTEROL (test code = 2210) 172 MG/DL TRIGLYCERIDES (test code = 2232) 136 MG/DL HDL CHOLESTEROL (test code = 2220) 44 MG/DL CALC LDL CHOL (test code = 2237) 101 MG/DL RISK RATIO LDL/HDL (test code = 2.29 RATIO 2238) LIPID [id number] 00:00:00 Test Item Value Reference Range Interpretation Comments CHOLESTEROL (test code = 2210) 172 MG/DL TRIGLYCERIDES (test code = 2232) 136 MG/DL HDL CHOLESTEROL (test code = 2220) 44 MG/DL CALC LDL CHOL (test code = 2237) 101 MG/DL RISK RATIO LDL/HDL (test code = 2.29 RATIO 2238) [id number] 00:00:00 Test Item Value Reference Range Interpretation Comments TESTOSTERONE (test code = 2830) <12 NG/DL TESTOSTERONE REF RANGE (test code = (NOTE) 51838) [id number] 00:00:00 Test Item Value Reference Range Interpretation Comments TESTOSTERONE (test code = 2830) <12 NG/DL TESTOSTERONE REF RANGE (test code = (NOTE) 75551) [id number] 00:00:00 Test Item Value Reference Range Interpretation Comments PROLACTIN (test code = 2800) 5.8 NG/ML [id number] 00:00:00 Test Item Value Reference Range Interpretation Comments PROLACTIN (test code = 2800) 5.8 NG/ML FSH + LH [id number] 00:00:00 Test Item Value Reference Range Interpretation Comments FOLLICLE STIM HORMONE (test code = 8.9 MIU/ML 2700) LUTEINIZING HORMONE (test code = 6.5 MIU/ML 2776) FSH + LH [id number] 00:00:00 Test Item Value Reference Range Interpretation Comments FOLLICLE STIM HORMONE (test code = 8.9 MIU/ML 2700) LUTEINIZING HORMONE (test code = 6.5 MIU/ML 2776) VITAMIN D,1,04-[id number] 00:00:00 Test Item Value Reference Range Interpretation Comments VITAMIN D,1,25-DIHYDROXY (test 11.3 PG/ML code = 4960) VITAMIN D,1,47-[id number] 00:00:00 Test Item Value Reference Range Interpretation Comments VITAMIN D,1,25-DIHYDROXY (test 11.3 PG/ML code = 4960) VITAMIN B 12 AND FOLIC [id number] 00:00:00 Test Item Value Reference Range Interpretation Comments VITAMIN B-12 (test code = 2840) 925 PG/ML FOLIC ACID (test code = 2695) >24.0 NG/ML VITAMIN B 12 AND FOLIC [id number] 00:00:00 Test Item Value Reference Range Interpretation [...] (test code = 2821) 0.4 UIU/ML LIPID [id number] 00:00:00 Test Item Value Reference Range Interpretation Comments CHOLESTEROL (test code = 2210) 172 MG/DL TRIGLYCERIDES (test code = 2232) 136 MG/DL HDL CHOLESTEROL (test code = 2220) 44 MG/DL CALC LDL CHOL (test code = 2237) 101 MG/DL RISK RATIO LDL/HDL (test code = 2.29 RATIO 2238) LIPID [id number] 00:00:00 Test Item Value Reference Range Interpretation Comments CHOLESTEROL (test code = 2210) 172 MG/DL TRIGLYCERIDES (test code = 2232) 136 MG/DL HDL CHOLESTEROL (test code = 2220) 44 MG/DL CALC LDL CHOL (test code = 2237) 101 MG/DL RISK RATIO LDL/HDL (test code = 2.29 RATIO 2238) [id number] 00:00:00 Test Item Value Reference Range Interpretation Comments TESTOSTERONE (test code = 2830) <12 NG/DL TESTOSTERONE REF RANGE (test code = (NOTE) 88643) [id number] 00:00:00 Test Item Value Reference Range Interpretation Comments TESTOSTERONE (test code = 2830) <12 NG/DL TESTOSTERONE REF RANGE (test code = (NOTE) 85851) [id number] 00:00:00 Test Item Value Reference Range Interpretation Comments PROLACTIN (test code = 2800) 5.8 NG/ML [id number] 00:00:00 Test Item Value Reference Range Interpretation Comments PROLACTIN (test code = 2800) 5.8 NG/ML FSH + LH [id number] 00:00:00 Test Item Value Reference Range Interpretation Comments FOLLICLE STIM HORMONE (test code = 8.9 MIU/ML 2700) LUTEINIZING HORMONE (test code = 6.5 MIU/ML 2776) FSH + LH [id number] 00:00:00 Test Item Value Reference Range Interpretation Comments FOLLICLE STIM HORMONE (test code = 8.9 MIU/ML 2700) LUTEINIZING HORMONE (test code = 6.5 MIU/ML 2776) VITAMIN D,1,45-[id number] 00:00:00 Test Item Value Reference Range Interpretation Comments VITAMIN D,1,25-DIHYDROXY (test 11.3 PG/ML code = 4960) VITAMIN D,1,73-[id number] 00:00:00 Test Item Value Reference Range Interpretation Comments VITAMIN D,1,25-DIHYDROXY (test 11.3 PG/ML code = 4960) VITAMIN B 12 AND FOLIC [id number] 00:00:00 Test Item Value Reference Range Interpretation Comments VITAMIN B-12 (test code = 2840) 925 PG/ML FOLIC ACID (test code = 2695) >24.0 NG/ML VITAMIN B 12 AND FOLIC [id number] 00:00:00 Test Item Value Reference Range Interpretation [...] (test code = 2821) 0.4 UIU/ML LIPID [id number] 00:00:00 Test Item Value Reference Range Interpretation Comments CHOLESTEROL (test code = 2210) 172 MG/DL TRIGLYCERIDES (test code = 2232) 136 MG/DL HDL CHOLESTEROL (test code = 2220) 44 MG/DL CALC LDL CHOL (test code = 2237) 101 MG/DL RISK RATIO LDL/HDL (test code = 2.29 RATIO 2238) LIPID [id number] 00:00:00 Test Item Value Reference Range Interpretation Comments CHOLESTEROL (test code = 2210) 172 MG/DL TRIGLYCERIDES (test code = 2232) 136 MG/DL HDL CHOLESTEROL (test code = 2220) 44 MG/DL CALC LDL CHOL (test code = 2237) 101 MG/DL RISK RATIO LDL/HDL (test code = 2.29 RATIO 2238) [id number] 00:00:00 Test Item Value Reference Range Interpretation Comments TESTOSTERONE (test code = 2830) <12 NG/DL TESTOSTERONE REF RANGE (test code = (NOTE) 04273) [id number] 00:00:00 Test Item Value Reference Range Interpretation Comments TESTOSTERONE (test code = 2830) <12 NG/DL TESTOSTERONE REF RANGE (test code = (NOTE) 58277) [id number] 00:00:00 Test Item Value Reference Range Interpretation Comments PROLACTIN (test code = 2800) 5.8 NG/ML [id number] 00:00:00 Test Item Value Reference Range Interpretation Comments PROLACTIN (test code = 2800) 5.8 NG/ML FSH + LH [id number] 00:00:00 Test Item Value Reference Range Interpretation Comments FOLLICLE STIM HORMONE (test code = 8.9 MIU/ML 2700) LUTEINIZING HORMONE (test code = 6.5 MIU/ML 2776) FSH + LH [id number] 00:00:00 Test Item Value Reference Range Interpretation Comments FOLLICLE STIM HORMONE (test code = 8.9 MIU/ML 2700) LUTEINIZING HORMONE (test code = 6.5 MIU/ML 2776) VITAMIN D,1,15-[id number] 00:00:00 Test Item Value Reference Range Interpretation Comments VITAMIN D,1,25-DIHYDROXY (test 11.3 PG/ML code = 4960) VITAMIN D,1,23-[id number] 00:00:00 Test Item Value Reference Range Interpretation Comments VITAMIN D,1,25-DIHYDROXY (test 11.3 PG/ML code = 4960) VITAMIN B 12 AND FOLIC [id number] 00:00:00 Test Item Value Reference Range Interpretation Comments VITAMIN B-12 (test code = 2840) 925 PG/ML FOLIC ACID (test code = 2695) >24.0 NG/ML VITAMIN B 12 AND FOLIC [id number] 00:00:00 Test Item Value Reference Range Interpretation Comments VITAMIN B-12 (test code = 2840) 925 PG/ML FOLIC ACID (test code = 2695) >24.0 NG/ML THYROID II PROFILE (T3U, T4, T7, TSH)2016-03-22 00:00:00 Test Item Value Reference Range Interpretation Comments T3 UPTAKE (test code = 2817) 31.0 % T4 (THYROXINE) (test code = 2819) 7.4 UG/DL CALCULATED T7 (FTI) (test code = 2.29 3480) TSH (test code = 2821) 0.4 UIU/ML THYROID II PROFILE (T3U, T4, T7, TSH)2016-03-22 00:00:00 Test Item Value Reference Range Interpretation Comments T3 UPTAKE (test code = 2817) 31.0 % T4 (THYROXINE) (test code = 2819) 7.4 UG/DL CALCULATED T7 (FTI) (test code = 2.29 2820) TSH (test code = 2821) 0.4 UIU/ML LIPID [id number] 00:00:00 Test Item Value Reference Range Interpretation Comments CHOLESTEROL (test code = 2210) 172 MG/DL TRIGLYCERIDES (test code = 2232) 136 MG/DL HDL CHOLESTEROL (test code = 2220) 44 MG/DL CALC LDL CHOL (test code = 2237) 101 MG/DL RISK RATIO LDL/HDL (test code = 2.29 RATIO 2238) LIPID [id number] 00:00:00 Test Item Value Reference Range Interpretation Comments CHOLESTEROL (test code = 2210) 172 MG/DL TRIGLYCERIDES (test code = 2232) 136 MG/DL HDL CHOLESTEROL (test code = 2220) 44 MG/DL CALC LDL CHOL (test code = 2237) 101 MG/DL RISK RATIO LDL/HDL (test code = 2.29 RATIO 2238) [id number] 00:00:00 Test Item Value Reference Range Interpretation Comments TESTOSTERONE (test code = 2830) <12 NG/DL TESTOSTERONE REF RANGE (test code = (NOTE) 74389) [id number] 00:00:00 Test Item Value Reference Range Interpretation Comments TESTOSTERONE (test code = 2830) <12 NG/DL TESTOSTERONE REF RANGE (test code = (NOTE) 06427) [id number] 00:00:00 Test Item Value Reference Range Interpretation Comments PROLACTIN (test code = 2800) 5.8 NG/ML [id number] 00:00:00 Test Item Value Reference Range Interpretation Comments PROLACTIN (test code = 2800) 5.8 NG/ML FSH + LH [id number] 00:00:00 Test Item Value Reference Range Interpretation Comments FOLLICLE STIM HORMONE (test code = 8.9 MIU/ML 2700) LUTEINIZING HORMONE (test code = 6.5 MIU/ML 2776) FSH + LH [id number] 00:00:00 Test Item Value Reference Range Interpretation Comments FOLLICLE STIM HORMONE (test code = 8.9 MIU/ML 2700) LUTEINIZING HORMONE (test code = 6.5 MIU/ML 2776) VITAMIN D,1,28-[id number] 00:00:00 Test Item Value Reference Range Interpretation Comments VITAMIN D,1,25-DIHYDROXY (test 11.3 PG/ML code = 4960) VITAMIN D,1,85-[id number] 00:00:00 Test Item Value Reference Range Interpretation Comments VITAMIN D,1,25-DIHYDROXY (test 11.3 PG/ML code = 4960) VITAMIN B 12 AND FOLIC [id number] 00:00:00 Test Item Value Reference Range Interpretation Comments VITAMIN B-12 (test code = 2840) 925 PG/ML FOLIC ACID (test code = 2695) >24.0 NG/ML VITAMIN B 12 AND FOLIC [id number] 00:00:00 Test Item Value Reference Range Interpretation [...] (test code = 2821) 0.4 UIU/ML LIPID [id number] 00:00:00 Test Item Value Reference Range Interpretation Comments CHOLESTEROL (test code = 2210) 172 MG/DL TRIGLYCERIDES (test code = 2232) 136 MG/DL HDL CHOLESTEROL (test code = 2220) 44 MG/DL CALC LDL CHOL (test code = 2237) 101 MG/DL RISK RATIO LDL/HDL (test code = 2.29 RATIO 2238) LIPID [id number] 00:00:00 Test Item Value Reference Range Interpretation Comments CHOLESTEROL (test code = 2210) 172 MG/DL TRIGLYCERIDES (test code = 2232) 136 MG/DL HDL CHOLESTEROL (test code = 2220) 44 MG/DL CALC LDL CHOL (test code = 2237) 101 MG/DL RISK RATIO LDL/HDL (test code = 2.29 RATIO 2238) [id number] 00:00:00 Test Item Value Reference Range Interpretation Comments TESTOSTERONE (test code = 2830) <12 NG/DL TESTOSTERONE REF RANGE (test code = (NOTE) 93361) [id number] 00:00:00 Test Item Value Reference Range Interpretation Comments TESTOSTERONE (test code = 2830) <12 NG/DL TESTOSTERONE REF RANGE (test code = (NOTE) 04872) [id number] 00:00:00 Test Item Value Reference Range Interpretation Comments PROLACTIN (test code = 2800) 5.8 NG/ML [id number] 00:00:00 Test Item Value Reference Range Interpretation Comments PROLACTIN (test code = 2800) 5.8 NG/ML FSH + LH [id number] 00:00:00 Test Item Value Reference Range Interpretation Comments FOLLICLE STIM HORMONE (test code = 8.9 MIU/ML 2700) LUTEINIZING HORMONE (test code = 6.5 MIU/ML 2776) FSH + LH [id number] 00:00:00 Test Item Value Reference Range Interpretation Comments FOLLICLE STIM HORMONE (test code = 8.9 MIU/ML 2700) LUTEINIZING HORMONE (test code = 6.5 MIU/ML 2776) VITAMIN D,1,62-[id number] 00:00:00 Test Item Value Reference Range Interpretation Comments VITAMIN D,1,25-DIHYDROXY (test 11.3 PG/ML code = 4960) VITAMIN D,1,60-[id number] 00:00:00 Test Item Value Reference Range Interpretation Comments VITAMIN D,1,25-DIHYDROXY (test 11.3 PG/ML code = 4960) VITAMIN B 12 AND FOLIC [id number] 00:00:00 Test Item Value Reference Range Interpretation Comments VITAMIN B-12 (test code = 2840) 925 PG/ML FOLIC ACID (test code = 2695) >24.0 NG/ML VITAMIN B 12 AND FOLIC [id number] 00:00:00 Test Item Value Reference Range Interpretation [...] (test code = 2821) 0.4 UIU/ML LIPID [id number] 00:00:00 Test Item Value Reference Range Interpretation Comments CHOLESTEROL (test code = 2210) 172 MG/DL TRIGLYCERIDES (test code = 2232) 136 MG/DL HDL CHOLESTEROL (test code = 2220) 44 MG/DL CALC LDL CHOL (test code = 2237) 101 MG/DL RISK RATIO LDL/HDL (test code = 2.29 RATIO 2238) LIPID [id number] 00:00:00 Test Item Value Reference Range Interpretation Comments CHOLESTEROL (test code = 2210) 172 MG/DL TRIGLYCERIDES (test code = 2232) 136 MG/DL HDL CHOLESTEROL (test code = 2220) 44 MG/DL CALC LDL CHOL (test code = 2237) 101 MG/DL RISK RATIO LDL/HDL (test code = 2.29 RATIO 2238) [id number] 00:00:00 Test Item Value Reference Range Interpretation Comments TESTOSTERONE (test code = 2830) <12 NG/DL TESTOSTERONE REF RANGE (test code = (NOTE) 41229) [id number] 00:00:00 Test Item Value Reference Range Interpretation Comments TESTOSTERONE (test code = 2830) <12 NG/DL TESTOSTERONE REF RANGE (test code = (NOTE) 32180) [id number] 00:00:00 Test Item Value Reference Range Interpretation Comments PROLACTIN (test code = 2800) 5.8 NG/ML [id number] 00:00:00 Test Item Value Reference Range Interpretation Comments PROLACTIN (test code = 2800) 5.8 NG/ML FSH + LH [id number] 00:00:00 Test Item Value Reference Range Interpretation Comments FOLLICLE STIM HORMONE (test code = 8.9 MIU/ML 2700) LUTEINIZING HORMONE (test code = 6.5 MIU/ML 2776) FSH + LH [id number] 00:00:00 Test Item Value Reference Range Interpretation Comments FOLLICLE STIM HORMONE (test code = 8.9 MIU/ML 2700) LUTEINIZING HORMONE (test code = 6.5 MIU/ML 2776) VITAMIN D,1,98-[id number] 00:00:00 Test Item Value Reference Range Interpretation Comments VITAMIN D,1,25-DIHYDROXY (test 11.3 PG/ML code = 4960) VITAMIN B 12 AND FOLIC [id number] 00:00:00 Test Item Value Reference Range Interpretation [...] (test code = 2821) 0.4 UIU/ML VITAMIN D,1,57-[id number] 00:00:00 Test Item Value Reference Range Interpretation Comments VITAMIN D,1,25-DIHYDROXY (test 11.3 PG/ML code = 4960) VITAMIN D,1,36-[id number] 00:00:00 Test Item Value Reference Range Interpretation Comments VITAMIN D,1,25-DIHYDROXY (test 11.3 PG/ML code = 4960) VITAMIN B 12 AND FOLIC [id number] 00:00:00 Test Item Value Reference Range Interpretation Comments VITAMIN B-12 (test code = 2840) 925 PG/ML FOLIC ACID (test code = 2695) >24.0 NG/ML VITAMIN B 12 AND FOLIC [id number] 00:00:00 Test Item Value Reference Range Interpretation [...] (test code = 2821) 0.4 UIU/ML LIPID [id number] 00:00:00 Test Item Value Reference Range Interpretation Comments CHOLESTEROL (test code = 2210) 172 MG/DL TRIGLYCERIDES (test code = 2232) 136 MG/DL HDL CHOLESTEROL (test code = 2220) 44 MG/DL CALC LDL CHOL (test code = 2237) 101 MG/DL RISK RATIO LDL/HDL (test code = 2.29 RATIO 2238) LIPID [id number] 00:00:00 Test Item Value Reference Range Interpretation Comments CHOLESTEROL (test code = 2210) 172 MG/DL TRIGLYCERIDES (test code = 2232) 136 MG/DL HDL CHOLESTEROL (test code = 2220) 44 MG/DL CALC LDL CHOL (test code = 2237) 101 MG/DL RISK RATIO LDL/HDL (test code = 2.29 RATIO 2238) [id number] 00:00:00 Test Item Value Reference Range Interpretation Comments TESTOSTERONE (test code = 2830) <12 NG/DL TESTOSTERONE REF RANGE (test code = (NOTE) 68118) [id number] 00:00:00 Test Item Value Reference Range Interpretation Comments TESTOSTERONE (test code = 2830) <12 NG/DL TESTOSTERONE REF RANGE (test code = (NOTE) 12429) [id number] 00:00:00 Test Item Value Reference Range Interpretation Comments PROLACTIN (test code = 2800) 5.8 NG/ML [id number] 00:00:00 Test Item Value Reference Range Interpretation Comments PROLACTIN (test code = 2800) 5.8 NG/ML FSH + LH [id number] 00:00:00 Test Item Value Reference Range Interpretation Comments FOLLICLE STIM HORMONE (test code = 8.9 MIU/ML 2700) LUTEINIZING HORMONE (test code = 6.5 MIU/ML 2776) FSH + LH [id number] 00:00:00 Test Item Value Reference Range Interpretation Comments FOLLICLE STIM HORMONE (test code = 8.9 MIU/ML 2700) LUTEINIZING HORMONE (test code = 6.5 MIU/ML 2776) LIPID [id number] 00:00:00 Test Item Value Reference Range Interpretation Comments CHOLESTEROL (test code = 2210) 172 MG/DL TRIGLYCERIDES (test code = 2232) 136 MG/DL HDL CHOLESTEROL (test code = 2220) 44 MG/DL CALC LDL CHOL (test code = 2237) 101 MG/DL RISK RATIO LDL/HDL (test code = 2.29 RATIO 2238) [id number] 00:00:00 Test Item Value Reference Range Interpretation Comments TESTOSTERONE (test code = 2830) <12 NG/DL TESTOSTERONE REF RANGE (test code = (NOTE) 05482) [id number] 00:00:00 Test Item Value Reference Range Interpretation Comments PROLACTIN (test code = 2800) 5.8 NG/ML FSH + LH [id number] 00:00:00 Test Item Value Reference Range Interpretation Comments FOLLICLE STIM HORMONE (test code = 8.9 MIU/ML 2700) LUTEINIZING HORMONE (test code = 6.5 MIU/ML 2776) VITAMIN D,1,24-[id number] 00:00:00 Test Item Value Reference Range Interpretation Comments VITAMIN D,1,25-DIHYDROXY (test 11.3 PG/ML code = 4960) VITAMIN D,1,14-[id number] 00:00:00 Test Item Value Reference Range Interpretation Comments VITAMIN D,1,25-DIHYDROXY (test 11.3 PG/ML code = 4960) VITAMIN B 12 AND FOLIC [id number] 00:00:00 Test Item Value Reference Range Interpretation Comments VITAMIN B-12 (test code = 2840) 925 PG/ML FOLIC ACID (test code = 2695) >24.0 NG/ML VITAMIN B 12 AND FOLIC [id number] 00:00:00 Test Item Value Reference Range Interpretation [...] (test code = 2821) 0.4 UIU/ML LIPID [id number] 00:00:00 Test Item Value Reference Range Interpretation Comments CHOLESTEROL (test code = 2210) 172 MG/DL TRIGLYCERIDES (test code = 2232) 136 MG/DL HDL CHOLESTEROL (test code = 2220) 44 MG/DL CALC LDL CHOL (test code = 2237) 101 MG/DL RISK RATIO LDL/HDL (test code = 2.29 RATIO 2238) LIPID [id number] 00:00:00 Test Item Value Reference Range Interpretation Comments CHOLESTEROL (test code = 2210) 172 MG/DL TRIGLYCERIDES (test code = 2232) 136 MG/DL HDL CHOLESTEROL (test code = 2220) 44 MG/DL CALC LDL CHOL (test code = 2237) 101 MG/DL RISK RATIO LDL/HDL (test code = 2.29 RATIO 2238) [id number] 00:00:00 Test Item Value Reference Range Interpretation Comments TESTOSTERONE (test code = 2830) <12 NG/DL TESTOSTERONE REF RANGE (test code = (NOTE) 66882) [id number] 00:00:00 Test Item Value Reference Range Interpretation Comments TESTOSTERONE (test code = 2830) <12 NG/DL TESTOSTERONE REF RANGE (test code = (NOTE) 33747) [id number] 00:00:00 Test Item Value Reference Range Interpretation Comments PROLACTIN (test code = 2800) 5.8 NG/ML [id number] 00:00:00 Test Item Value Reference Range Interpretation Comments PROLACTIN (test code = 2800) 5.8 NG/ML [facility] + LH [id number] 00:00:00 Test Item Value Reference Range Interpretation Comments FOLLICLE STIM HORMONE (test code = 8.9 MIU/ML 2700) LUTEINIZING HORMONE (test code = 6.5 MIU/ML 2776) FSH + LH [id number] 00:00:00 Test Item Value Reference Range Interpretation Comments FOLLICLE STIM HORMONE (test code = 8.9 MIU/ML 2700) LUTEINIZING HORMONE (test code = 6.5 MIU/ML 2776) VITAMIN D,1,88-[id number] 00:00:00 Test Item Value Reference Range Interpretation Comments VITAMIN D,1,25-DIHYDROXY (test 11.3 PG/ML code = 4960) VITAMIN D,1,51-[id number] 00:00:00 Test Item Value Reference Range Interpretation Comments VITAMIN D,1,25-DIHYDROXY (test 11.3 PG/ML code = 4960) VITAMIN B 12 AND FOLIC [id number] 00:00:00 Test Item Value Reference Range Interpretation Comments VITAMIN B-12 (test code = 2840) 925 PG/ML FOLIC ACID (test code = 2695) >24.0 NG/ML VITAMIN B 12 AND FOLIC [id number] 00:00:00 Test Item Value Reference Range Interpretation [...] (test code = 2821) 0.4 UIU/ML LIPID [id number] 00:00:00 Test Item Value Reference Range Interpretation Comments CHOLESTEROL (test code = 2210) 172 MG/DL TRIGLYCERIDES (test code = 2232) 136 MG/DL HDL CHOLESTEROL (test code = 2220) 44 MG/DL CALC LDL CHOL (test code = 2237) 101 MG/DL RISK RATIO LDL/HDL (test code = 2.29 RATIO 2238) LIPID [id number] 00:00:00 Test Item Value Reference Range Interpretation Comments CHOLESTEROL (test code = 2210) 172 MG/DL TRIGLYCERIDES (test code = 2232) 136 MG/DL HDL CHOLESTEROL (test code = 2220) 44 MG/DL CALC LDL CHOL (test code = 2237) 101 MG/DL RISK RATIO LDL/HDL (test code = 2.29 RATIO 2238) [id number] 00:00:00 Test Item Value Reference Range Interpretation Comments TESTOSTERONE (test code = 2830) <12 NG/DL TESTOSTERONE REF RANGE (test code = (NOTE) 44637) [id number] 00:00:00 Test Item Value Reference Range Interpretation Comments TESTOSTERONE (test code = 2830) <12 NG/DL TESTOSTERONE REF RANGE (test code = (NOTE) 75101) [id number] 00:00:00 Test Item Value Reference Range Interpretation Comments PROLACTIN (test code = 2800) 5.8 NG/ML [id number] 00:00:00 Test Item Value Reference Range Interpretation Comments PROLACTIN (test code = 2800) 5.8 NG/ML FSH + LH [id number] 00:00:00 Test Item Value Reference Range Interpretation Comments FOLLICLE STIM HORMONE (test code = 8.9 MIU/ML 2700) LUTEINIZING HORMONE (test code = 6.5 MIU/ML 2776) FSH + LH [id number] 00:00:00 Test Item Value Reference Range Interpretation Comments FOLLICLE STIM HORMONE (test code = 8.9 MIU/ML 2700) LUTEINIZING HORMONE (test code = 6.5 MIU/ML 2776) SEDIMENTATION [id number] 00:00:00 Test Item Value Reference Range Interpretation Comments SEDIMENTATION RATE (test code = 35 MM/HOUR 1017) SEDIMENTATION [id number] 00:00:00 Test Item Value Reference Range Interpretation Comments SEDIMENTATION RATE (test code = 35 MM/HOUR 1017) CBC W/AUTO [id number] 00:00:00 Test Item Value Reference Range Interpretation [...] code = 1015) 246 K/UL CBC W/AUTO [id number] 00:00:00 Test Item Value Reference Range Interpretation [...] code = 1015) 246 K/UL CBC W/AUTO [id number] 00:00:00 Test Item Value Reference Range Interpretation [...] (test code = 1015) 246 K/UL HEMOGLOBIN [id number] 00:00:00 Test Item Value Reference Range Interpretation Comments HEMOGLOBIN A1c (test code = 96697) 6.2 % HEMOGLOBIN [id number] 00:00:00 Test Item Value Reference Range Interpretation Comments HEMOGLOBIN A1c (test code = 96142) 6.2 % HEMOGLOBIN [id number] 00:00:00 Test Item Value Reference Range Interpretation Comments HEMOGLOBIN A1c (test code = 72742) 6.2 % SEDIMENTATION [id number] 00:00:00 Test Item Value Reference Range Interpretation Comments SEDIMENTATION RATE (test code = 35 MM/HOUR 1017) SEDIMENTATION [id number] 00:00:00 Test Item Value Reference Range Interpretation Comments SEDIMENTATION RATE (test code = 35 MM/HOUR 1017) CBC W/AUTO [id number] 00:00:00 Test Item Value Reference Range Interpretation [...] code = 1015) 246 K/UL CBC W/AUTO [id number] 00:00:00 Test Item Value Reference Range Interpretation [...] code = 1015) 246 K/UL CBC W/AUTO [id number] 00:00:00 Test Item Value Reference Range Interpretation [...] (test code = 1015) 246 K/UL HEMOGLOBIN [id number] 00:00:00 Test Item Value Reference Range Interpretation Comments HEMOGLOBIN A1c (test code = 83283) 6.2 % HEMOGLOBIN [id number] 00:00:00 Test Item Value Reference Range Interpretation Comments HEMOGLOBIN A1c (test code = 97729) 6.2 % HEMOGLOBIN [id number] 00:00:00 Test Item Value Reference Range Interpretation Comments HEMOGLOBIN A1c (test code = 43157) 6.2 % SEDIMENTATION [id number] 00:00:00 Test Item Value Reference Range Interpretation Comments SEDIMENTATION RATE (test code = 35 MM/HOUR 1017) SEDIMENTATION [id number] 00:00:00 Test Item Value Reference Range Interpretation Comments SEDIMENTATION RATE (test code = 35 MM/HOUR 1017) CBC W/AUTO [id number] 00:00:00 Test Item Value Reference Range Interpretation [...] code = 1015) 246 K/UL CBC W/AUTO [id number] 00:00:00 Test Item Value Reference Range Interpretation [...] code = 1015) 246 K/UL CBC W/AUTO [id number] 00:00:00 Test Item Value Reference Range Interpretation [...] (test code = 1015) 246 K/UL HEMOGLOBIN [id number] 00:00:00 Test Item Value Reference Range Interpretation Comments HEMOGLOBIN A1c (test code = 85413) 6.2 % HEMOGLOBIN [id number] 00:00:00 Test Item Value Reference Range Interpretation Comments HEMOGLOBIN A1c (test code = 96215) 6.2 % HEMOGLOBIN [id number] 00:00:00 Test Item Value Reference Range Interpretation Comments HEMOGLOBIN A1c (test code = 07025) 6.2 % SEDIMENTATION [id number] 00:00:00 Test Item Value Reference Range Interpretation Comments SEDIMENTATION RATE (test code = 35 MM/HOUR 1017) SEDIMENTATION [id number] 00:00:00 Test Item Value Reference Range Interpretation Comments SEDIMENTATION RATE (test code = 35 MM/HOUR 1017) CBC W/AUTO [id number] 00:00:00 Test Item Value Reference Range Interpretation [...] code = 1015) 246 K/UL CBC W/AUTO [id number] 00:00:00 Test Item Value Reference Range Interpretation [...] code = 1015) 246 K/UL CBC W/AUTO [id number] 00:00:00 Test Item Value Reference Range Interpretation [...] (test code = 1015) 246 K/UL HEMOGLOBIN [id number] 00:00:00 Test Item Value Reference Range Interpretation Comments HEMOGLOBIN A1c (test code = 22088) 6.2 % HEMOGLOBIN [id number] 00:00:00 Test Item Value Reference Range Interpretation Comments HEMOGLOBIN A1c (test code = 68232) 6.2 % HEMOGLOBIN [id number] 00:00:00 Test Item Value Reference Range Interpretation Comments HEMOGLOBIN A1c (test code = 19721) 6.2 % SEDIMENTATION [id number] 00:00:00 Test Item Value Reference Range Interpretation Comments SEDIMENTATION RATE (test code = 35 MM/HOUR 1017) SEDIMENTATION [id number] 00:00:00 Test Item Value Reference Range Interpretation Comments SEDIMENTATION RATE (test code = 35 MM/HOUR 1017) CBC W/AUTO [id number] 00:00:00 Test Item Value Reference Range Interpretation [...] code = 1015) 246 K/UL CBC W/AUTO [id number] 00:00:00 Test Item Value Reference Range Interpretation [...] code = 1015) 246 K/UL CBC W/AUTO [id number] 00:00:00 Test Item Value Reference Range Interpretation [...] (test code = 1015) 246 K/UL HEMOGLOBIN [id number] 00:00:00 Test Item Value Reference Range Interpretation Comments HEMOGLOBIN A1c (test code = 48882) 6.2 % HEMOGLOBIN [id number] 00:00:00 Test Item Value Reference Range Interpretation Comments HEMOGLOBIN A1c (test code = 96868) 6.2 % HEMOGLOBIN [id number] 00:00:00 Test Item Value Reference Range Interpretation Comments HEMOGLOBIN A1c (test code = 46717) 6.2 % SEDIMENTATION [id number] 00:00:00 Test Item Value Reference Range Interpretation Comments SEDIMENTATION RATE (test code = 35 MM/HOUR 1017) SEDIMENTATION [id number] 00:00:00 Test Item Value Reference Range Interpretation Comments SEDIMENTATION RATE (test code = 35 MM/HOUR 1017) CBC W/AUTO [id number] 00:00:00 Test Item Value Reference Range Interpretation [...] code = 1015) 246 K/UL CBC W/AUTO [id number] 00:00:00 Test Item Value Reference Range Interpretation [...] code = 1015) 246 K/UL CBC W/AUTO [id number] 00:00:00 Test Item Value Reference Range Interpretation [...] (test code = 1015) 246 K/UL HEMOGLOBIN [id number] 00:00:00 Test Item Value Reference Range Interpretation Comments HEMOGLOBIN A1c (test code = 40232) 6.2 % HEMOGLOBIN [id number] 00:00:00 Test Item Value Reference Range Interpretation Comments HEMOGLOBIN A1c (test code = 40417) 6.2 % HEMOGLOBIN [id number] 00:00:00 Test Item Value Reference Range Interpretation Comments HEMOGLOBIN A1c (test code = 66268) 6.2 % SEDIMENTATION [id number] 00:00:00 Test Item Value Reference Range Interpretation Comments SEDIMENTATION RATE (test code = 35 MM/HOUR 1017) SEDIMENTATION [id number] 00:00:00 Test Item Value Reference Range Interpretation Comments SEDIMENTATION RATE (test code = 35 MM/HOUR 1017) CBC W/AUTO [id number] 00:00:00 Test Item Value Reference Range Interpretation [...] code = 1015) 246 K/UL CBC W/AUTO [id number] 00:00:00 Test Item Value Reference Range Interpretation [...] code = 1015) 246 K/UL CBC W/AUTO [id number] 00:00:00 Test Item Value Reference Range Interpretation [...] (test code = 1015) 246 K/UL HEMOGLOBIN [id number] 00:00:00 Test Item Value Reference Range Interpretation Comments HEMOGLOBIN A1c (test code = 15230) 6.2 % HEMOGLOBIN [id number] 00:00:00 Test Item Value Reference Range Interpretation Comments HEMOGLOBIN A1c (test code = 74982) 6.2 % HEMOGLOBIN [id number] 00:00:00 Test Item Value Reference Range Interpretation Comments HEMOGLOBIN A1c (test code = 71234) 6.2 % SEDIMENTATION [id number] 00:00:00 Test Item Value Reference Range Interpretation Comments SEDIMENTATION RATE (test code = 35 MM/HOUR 1017) SEDIMENTATION [id number] 00:00:00 Test Item Value Reference Range Interpretation Comments SEDIMENTATION RATE (test code = 35 MM/HOUR 1017) SEDIMENTATION [id number] 00:00:00 Test Item Value Reference Range Interpretation Comments SEDIMENTATION RATE (test code = 35 MM/HOUR 1017) CBC W/AUTO [id number] 00:00:00 Test Item Value Reference Range Interpretation [...] code = 1015) 246 K/UL CBC W/AUTO [id number] 00:00:00 Test Item Value Reference Range Interpretation [...] code = 1015) 246 K/UL CBC W/AUTO [id number] 00:00:00 Test Item Value Reference Range Interpretation [...] code = 1015) 246 K/UL CBC W/AUTO [id number] 00:00:00 Test Item Value Reference Range Interpretation [...] (test code = 1015) 246 K/UL HEMOGLOBIN [id number] 00:00:00 Test Item Value Reference Range Interpretation Comments HEMOGLOBIN A1c (test code = 95453) 6.2 % HEMOGLOBIN [id number] 00:00:00 Test Item Value Reference Range Interpretation Comments HEMOGLOBIN A1c (test code = 00456) 6.2 % HEMOGLOBIN [id number] 00:00:00 Test Item Value Reference Range Interpretation Comments HEMOGLOBIN A1c (test code = 58919) 6.2 % CBC W/AUTO [id number] 00:00:00 Test Item Value Reference Range Interpretation [...] (test code = 1015) 246 K/UL HEMOGLOBIN [id number] 00:00:00 Test Item Value Reference Range Interpretation Comments HEMOGLOBIN A1c (test code = 33485) 6.2 % HEMOGLOBIN [id number] 00:00:00 Test Item Value Reference Range Interpretation Comments HEMOGLOBIN A1c (test code = 28299) 6.2 % SEDIMENTATION [id number] 00:00:00 Test Item Value Reference Range Interpretation Comments SEDIMENTATION RATE (test code = 35 MM/HOUR 1017) SEDIMENTATION [id number] 00:00:00 Test Item Value Reference Range Interpretation Comments SEDIMENTATION RATE (test code = 35 MM/HOUR 1017) CBC W/AUTO [id number] 00:00:00 Test Item Value Reference Range Interpretation [...] code = 1015) 246 K/UL CBC W/AUTO [id number] 00:00:00 Test Item Value Reference Range Interpretation [...] code = 1015) 246 K/UL CBC W/AUTO [id number] 00:00:00 Test Item Value Reference Range Interpretation [...] (test code = 1015) 246 K/UL HEMOGLOBIN [id number] 00:00:00 Test Item Value Reference Range Interpretation Comments HEMOGLOBIN A1c (test code = 61267) 6.2 % HEMOGLOBIN [id number] 00:00:00 Test Item Value Reference Range Interpretation Comments HEMOGLOBIN A1c (test code = 82228) 6.2 % HEMOGLOBIN [id number] 00:00:00 Test Item Value Reference Range Interpretation Comments HEMOGLOBIN A1c (test code = 56759) 6.2 % SEDIMENTATION [id number] 00:00:00 Test Item Value Reference Range Interpretation Comments SEDIMENTATION RATE (test code = 35 MM/HOUR 1017) SEDIMENTATION [id number] 00:00:00 Test Item Value Reference Range Interpretation Comments SEDIMENTATION RATE (test code = 35 MM/HOUR 1017) CBC W/AUTO [id number] 00:00:00 Test Item Value Reference Range Interpretation [...] code = 1015) 246 K/UL CBC W/AUTO [id number] 00:00:00 Test Item Value Reference Range Interpretation [...] code = 1015) 246 K/UL CBC W/AUTO [id number] 00:00:00 Test Item Value Reference Range Interpretation [...] (test code = 1015) 246 K/UL HEMOGLOBIN [id number] 00:00:00 Test Item Value Reference Range Interpretation Comments HEMOGLOBIN A1c (test code = 26421) 6.2 % HEMOGLOBIN [id number] 00:00:00 Test Item Value Reference Range Interpretation Comments HEMOGLOBIN A1c (test code = 97458) 6.2 % HEMOGLOBIN [id number] 00:00:00 Test Item Value Reference Range Interpretation Comments HEMOGLOBIN A1c (test code = 31319) 6.2 % COMPREHENSIVE METABOLIC [id number] 00:00:00 Test Item Value Reference Range Interpretation Comments GLUCOSE (test code = 2217) 100 MG/DL BUN (test code = 2208) 10 MG/DL CREATININE (test code = 2214) 0.61 MG/DL eGFR AMER. (test code 134 ML/MIN/1.73 = 92957) eGFR NON- AMER. (test 116 ML/MIN/1.73 code = 17704) CALCULATED BUN/CREAT (test 16 RATIO code = [...] code = 2219) 16 U/L COMPREHENSIVE METABOLIC [id number] 00:00:00 Test Item Value Reference Range Interpretation Comments GLUCOSE (test code = 2217) 100 MG/DL BUN (test code = 2208) 10 MG/DL CREATININE (test code = 2214) 0.61 MG/DL eGFR AMER. (test code 134 ML/MIN/1.73 = 51755) eGFR NON- AMER. (test 116 ML/MIN/1.73 code = 10386) CALCULATED BUN/CREAT (test 16 RATIO code = [...] (test code = 2219) 16 U/L LIPID [id number] 00:00:00 Test Item Value Reference Range Interpretation Comments CHOLESTEROL (test code = 2210) 166 MG/DL TRIGLYCERIDES (test code = 2232) 72 MG/DL HDL CHOLESTEROL (test code = 2220) 47 MG/DL CALCULATED LDL CHOL (test code = 105 MG/DL 2236) RISK RATIO LDL/HDL (test code = 2.23 RATIO 2238) LIPID [id number] 00:00:00 Test Item Value Reference Range Interpretation Comments CHOLESTEROL (test code = 2210) 166 MG/DL TRIGLYCERIDES (test code = 2232) 72 MG/DL HDL CHOLESTEROL (test code = 2220) 47 MG/DL CALCULATED LDL CHOL (test code = 105 MG/DL 2236) RISK RATIO LDL/HDL (test code = 2.23 RATIO 2238) [id number] 00:00:00 Test Item Value Reference Range Interpretation Comments TSH (test code = 2821) 1.2 UIU/ML [id number] 00:00:00 Test Item Value Reference Range Interpretation Comments TSH (test code = 2821) 1.2 UIU/ML [id number] 00:00:00 Test Item Value Reference Range Interpretation Comments TSH (test code = 2821) 1.2 UIU/ML COMPREHENSIVE METABOLIC [id number] 00:00:00 Test Item Value Reference Range Interpretation Comments GLUCOSE (test code = 2217) 100 MG/DL BUN (test code = 2208) 10 MG/DL CREATININE (test code = 2214) 0.61 MG/DL eGFR AMER. (test code 134 ML/MIN/1.73 = 25418) eGFR NON- AMER. (test 116 ML/MIN/1.73 code = 97399) CALCULATED BUN/CREAT (test 16 RATIO code = [...] code = 2219) 16 U/L COMPREHENSIVE METABOLIC [id number] 00:00:00 Test Item Value Reference Range Interpretation Comments GLUCOSE (test code = 2217) 100 MG/DL BUN (test code = 2208) 10 MG/DL CREATININE (test code = 2214) 0.61 MG/DL eGFR AMER. (test code 134 ML/MIN/1.73 = 82162) eGFR NON- AMER. (test 116 ML/MIN/1.73 code = 37028) CALCULATED BUN/CREAT (test 16 RATIO code = [...] (test code = 2219) 16 U/L LIPID [id number] 00:00:00 Test Item Value Reference Range Interpretation Comments CHOLESTEROL (test code = 2210) 166 MG/DL TRIGLYCERIDES (test code = 2232) 72 MG/DL HDL CHOLESTEROL (test code = 2220) 47 MG/DL CALCULATED LDL CHOL (test code = 105 MG/DL 2236) RISK RATIO LDL/HDL (test code = 2.23 RATIO 2238) LIPID [id number] 00:00:00 Test Item Value Reference Range Interpretation Comments CHOLESTEROL (test code = 2210) 166 MG/DL TRIGLYCERIDES (test code = 2232) 72 MG/DL HDL CHOLESTEROL (test code = 2220) 47 MG/DL CALCULATED LDL CHOL (test code = 105 MG/DL 2236) RISK RATIO LDL/HDL (test code = 2.23 RATIO 2238) [id number] 00:00:00 Test Item Value Reference Range Interpretation Comments TSH (test code = 2821) 1.2 UIU/ML [id number] 00:00:00 Test Item Value Reference Range Interpretation Comments TSH (test code = 2821) 1.2 UIU/ML [id number] 00:00:00 Test Item Value Reference Range Interpretation Comments TSH (test code = 2821) 1.2 UIU/ML COMPREHENSIVE METABOLIC [id number] 00:00:00 Test Item Value Reference Range Interpretation Comments GLUCOSE (test code = 2217) 100 MG/DL BUN (test code = 2208) 10 MG/DL CREATININE (test code = 2214) 0.61 MG/DL eGFR AMER. (test code 134 ML/MIN/1.73 = 50031) eGFR NON- AMER. (test 116 ML/MIN/1.73 code = 86106) CALCULATED BUN/CREAT (test 16 RATIO code = [...] code = 2219) 16 U/L COMPREHENSIVE METABOLIC [id number] 00:00:00 Test Item Value Reference Range Interpretation Comments GLUCOSE (test code = 2217) 100 MG/DL BUN (test code = 2208) 10 MG/DL CREATININE (test code = 2214) 0.61 MG/DL eGFR AMER. (test code 134 ML/MIN/1.73 = 25278) eGFR NON- AMER. (test 116 ML/MIN/1.73 code = 30367) CALCULATED BUN/CREAT (test 16 RATIO code = [...] (test code = 2219) 16 U/L LIPID [id number] 00:00:00 Test Item Value Reference Range Interpretation Comments CHOLESTEROL (test code = 2210) 166 MG/DL TRIGLYCERIDES (test code = 2232) 72 MG/DL HDL CHOLESTEROL (test code = 2220) 47 MG/DL CALCULATED LDL CHOL (test code = 105 MG/DL 2237) RISK RATIO LDL/HDL (test code = 2.23 RATIO 2238) LIPID [id number] 00:00:00 Test Item Value Reference Range Interpretation Comments CHOLESTEROL (test code = 2210) 166 MG/DL TRIGLYCERIDES (test code = 2232) 72 MG/DL HDL CHOLESTEROL (test code = 2220) 47 MG/DL CALCULATED LDL CHOL (test code = 105 MG/DL 2236) RISK RATIO LDL/HDL (test code = 2.23 RATIO 2238) [id number] 00:00:00 Test Item Value Reference Range Interpretation Comments TSH (test code = 2821) 1.2 UIU/ML [id number] 00:00:00 Test Item Value Reference Range Interpretation Comments TSH (test code = 2821) 1.2 UIU/ML [id number] 00:00:00 Test Item Value Reference Range Interpretation Comments TSH (test code = 2821) 1.2 UIU/ML COMPREHENSIVE METABOLIC [id number] 00:00:00 Test Item Value Reference Range Interpretation Comments GLUCOSE (test code = 2217) 100 MG/DL BUN (test code = 2208) 10 MG/DL CREATININE (test code = 2214) 0.61 MG/DL eGFR AMER. (test code 134 ML/MIN/1.73 = 53163) eGFR NON- AMER. (test 116 ML/MIN/1.73 code = 80279) CALCULATED BUN/CREAT (test 16 RATIO code = [...] code = 2219) 16 U/L COMPREHENSIVE METABOLIC [id number] 00:00:00 Test Item Value Reference Range Interpretation Comments GLUCOSE (test code = 2217) 100 MG/DL BUN (test code = 2208) 10 MG/DL CREATININE (test code = 2214) 0.61 MG/DL eGFR AMER. (test code 134 ML/MIN/1.73 = 72801) eGFR NON- AMER. (test 116 ML/MIN/1.73 code = 56265) CALCULATED BUN/CREAT (test 16 RATIO code = [...] (test code = 2219) 16 U/L LIPID [id number] 00:00:00 Test Item Value Reference Range Interpretation Comments CHOLESTEROL (test code = 2210) 166 MG/DL TRIGLYCERIDES (test code = 2232) 72 MG/DL HDL CHOLESTEROL (test code = 2220) 47 MG/DL CALCULATED LDL CHOL (test code = 105 MG/DL 2236) RISK RATIO LDL/HDL (test code = 2.23 RATIO 2238) LIPID [id number] 00:00:00 Test Item Value Reference Range Interpretation Comments CHOLESTEROL (test code = 2210) 166 MG/DL TRIGLYCERIDES (test code = 2232) 72 MG/DL HDL CHOLESTEROL (test code = 2220) 47 MG/DL CALCULATED LDL CHOL (test code = 105 MG/DL 2236) RISK RATIO LDL/HDL (test code = 2.23 RATIO 2238) [id number] 00:00:00 Test Item Value Reference Range Interpretation Comments TSH (test code = 2821) 1.2 UIU/ML [id number] 00:00:00 Test Item Value Reference Range Interpretation Comments TSH (test code = 2821) 1.2 UIU/ML [id number] 00:00:00 Test Item Value Reference Range Interpretation Comments TSH (test code = 2821) 1.2 UIU/ML COMPREHENSIVE METABOLIC [id number] 00:00:00 Test Item Value Reference Range Interpretation Comments GLUCOSE (test code = 2217) 100 MG/DL BUN (test code = 2208) 10 MG/DL CREATININE (test code = 2214) 0.61 MG/DL eGFR AMER. (test code 134 ML/MIN/1.73 = 69447) eGFR NON- AMER. (test 116 ML/MIN/1.73 code = 00715) CALCULATED BUN/CREAT (test 16 RATIO code = [...] code = 2219) 16 U/L COMPREHENSIVE METABOLIC [id number] 00:00:00 Test Item Value Reference Range Interpretation Comments GLUCOSE (test code = 2217) 100 MG/DL BUN (test code = 2208) 10 MG/DL CREATININE (test code = 2214) 0.61 MG/DL eGFR AMER. (test code 134 ML/MIN/1.73 = 80088) eGFR NON- AMER. (test 116 ML/MIN/1.73 code = 40145) CALCULATED BUN/CREAT (test 16 RATIO code = [...] (test code = 2219) 16 U/L LIPID [id number] 00:00:00 Test Item Value Reference Range Interpretation Comments CHOLESTEROL (test code = 2210) 166 MG/DL TRIGLYCERIDES (test code = 2232) 72 MG/DL HDL CHOLESTEROL (test code = 2220) 47 MG/DL CALCULATED LDL CHOL (test code = 105 MG/DL 2236) RISK RATIO LDL/HDL (test code = 2.23 RATIO 2238) LIPID [id number] 00:00:00 Test Item Value Reference Range Interpretation Comments CHOLESTEROL (test code = 2210) 166 MG/DL TRIGLYCERIDES (test code = 2232) 72 MG/DL HDL CHOLESTEROL (test code = 2220) 47 MG/DL CALCULATED LDL CHOL (test code = 105 MG/DL 2236) RISK RATIO LDL/HDL (test code = 2.23 RATIO 2238) [id number] 00:00:00 Test Item Value Reference Range Interpretation Comments TSH (test code = 2821) 1.2 UIU/ML [id number] 00:00:00 Test Item Value Reference Range Interpretation Comments TSH (test code = 2821) 1.2 UIU/ML [id number] 00:00:00 Test Item Value Reference Range Interpretation Comments TSH (test code = 2821) 1.2 UIU/ML COMPREHENSIVE METABOLIC [id number] 00:00:00 Test Item Value Reference Range Interpretation Comments GLUCOSE (test code = 2217) 100 MG/DL BUN (test code = 2208) 10 MG/DL CREATININE (test code = 2214) 0.61 MG/DL eGFR AMER. (test code 134 ML/MIN/1.73 = 78079) eGFR NON- AMER. (test 116 ML/MIN/1.73 code = 04114) CALCULATED BUN/CREAT (test 16 RATIO code = [...] code = 2219) 16 U/L COMPREHENSIVE METABOLIC [id number] 00:00:00 Test Item Value Reference Range Interpretation Comments GLUCOSE (test code = 2217) 100 MG/DL BUN (test code = 2208) 10 MG/DL CREATININE (test code = 2214) 0.61 MG/DL eGFR AMER. (test code 134 ML/MIN/1.73 = 05918) eGFR NON- AMER. (test 116 ML/MIN/1.73 code = 87036) CALCULATED BUN/CREAT (test 16 RATIO code = [...] (test code = 2219) 16 U/L LIPID [id number] 00:00:00 Test Item Value Reference Range Interpretation Comments CHOLESTEROL (test code = 2210) 166 MG/DL TRIGLYCERIDES (test code = 2232) 72 MG/DL HDL CHOLESTEROL (test code = 2220) 47 MG/DL CALCULATED LDL CHOL (test code = 105 MG/DL 7) RISK RATIO LDL/HDL (test code = 2.23 RATIO 2238) LIPID [id number] 00:00:00 Test Item Value Reference Range Interpretation Comments CHOLESTEROL (test code = 2210) 166 MG/DL TRIGLYCERIDES (test code = 2232) 72 MG/DL HDL CHOLESTEROL (test code = 2220) 47 MG/DL CALCULATED LDL CHOL (test code = 105 MG/DL 2237) RISK RATIO LDL/HDL (test code = 2.23 RATIO 2238) [id number] 00:00:00 Test Item Value Reference Range Interpretation Comments TSH (test code = 2821) 1.2 UIU/ML [id number] 00:00:00 Test Item Value Reference Range Interpretation Comments TSH (test code = 2821) 1.2 UIU/ML [id number] 00:00:00 Test Item Value Reference Range Interpretation Comments TSH (test code = 2821) 1.2 UIU/ML COMPREHENSIVE METABOLIC [id number] 00:00:00 Test Item Value Reference Range Interpretation Comments GLUCOSE (test code = 2217) 100 MG/DL BUN (test code = 2208) 10 MG/DL CREATININE (test code = 2214) 0.61 MG/DL eGFR AMER. (test code 134 ML/MIN/1.73 = 72317) eGFR NON- AMER. (test 116 ML/MIN/1.73 code = 24769) CALCULATED BUN/CREAT (test 16 RATIO code = [...] code = 2219) 16 U/L COMPREHENSIVE METABOLIC [id number] 00:00:00 Test Item Value Reference Range Interpretation Comments GLUCOSE (test code = 2217) 100 MG/DL BUN (test code = 2208) 10 MG/DL CREATININE (test code = 2214) 0.61 MG/DL eGFR AMER. (test code 134 ML/MIN/1.73 = 96549) eGFR NON- AMER. (test 116 ML/MIN/1.73 code = 60999) CALCULATED BUN/CREAT (test 16 RATIO code = [...] code = 2219) 16 U/L COMPREHENSIVE METABOLIC [id number] 00:00:00 Test Item Value Reference Range Interpretation Comments GLUCOSE (test code = 2217) 100 MG/DL BUN (test code = 2208) 10 MG/DL CREATININE (test code = 2214) 0.61 MG/DL eGFR AMER. (test code 134 ML/MIN/1.73 = 75402) eGFR NON- AMER. (test 116 ML/MIN/1.73 code = 48798) CALCULATED BUN/CREAT (test 16 RATIO code = [...] (test code = 2219) 16 U/L LIPID [id number] 00:00:00 Test Item Value Reference Range Interpretation Comments CHOLESTEROL (test code = 2210) 166 MG/DL TRIGLYCERIDES (test code = 2232) 72 MG/DL HDL CHOLESTEROL (test code = 2220) 47 MG/DL CALCULATED LDL CHOL (test code = 105 MG/DL 2236) RISK RATIO LDL/HDL (test code = 2.23 RATIO 2238) LIPID [id number] 00:00:00 Test Item Value Reference Range Interpretation Comments CHOLESTEROL (test code = 2210) 166 MG/DL TRIGLYCERIDES (test code = 2232) 72 MG/DL HDL CHOLESTEROL (test code = 2220) 47 MG/DL CALCULATED LDL CHOL (test code = 105 MG/DL 2237) RISK RATIO LDL/HDL (test code = 2.23 RATIO 2238) [id number] 00:00:00 Test Item Value Reference Range Interpretation Comments TSH (test code = 2821) 1.2 UIU/ML [id number] 00:00:00 Test Item Value Reference Range Interpretation Comments TSH (test code = 2821) 1.2 UIU/ML [id number] 00:00:00 Test Item Value Reference Range Interpretation Comments TSH (test code = 2821) 1.2 UIU/ML LIPID [id number] 00:00:00 Test Item Value Reference Range Interpretation Comments CHOLESTEROL (test code = 2210) 166 MG/DL TRIGLYCERIDES (test code = 2232) 72 MG/DL HDL CHOLESTEROL (test code = 2220) 47 MG/DL CALCULATED LDL CHOL (test code = 105 MG/DL 2237) RISK RATIO LDL/HDL (test code = 2.23 RATIO 2238) COMPREHENSIVE METABOLIC [id number] 00:00:00 Test Item Value Reference Range Interpretation Comments GLUCOSE (test code = 2217) 100 MG/DL BUN (test code = 2208) 10 MG/DL CREATININE (test code = 2214) 0.61 MG/DL eGFR AMER. (test code 134 ML/MIN/1.73 = 10099) eGFR NON- AMER. (test 116 ML/MIN/1.73 code = 93339) CALCULATED BUN/CREAT (test 16 RATIO code = [...] code = 2219) 16 U/L COMPREHENSIVE METABOLIC [id number] 00:00:00 Test Item Value Reference Range Interpretation Comments GLUCOSE (test code = 2217) 100 MG/DL BUN (test code = 2208) 10 MG/DL CREATININE (test code = 2214) 0.61 MG/DL eGFR AMER. (test code 134 ML/MIN/1.73 = 06711) eGFR NON- AMER. (test 116 ML/MIN/1.73 code = 07766) CALCULATED BUN/CREAT (test 16 RATIO code = [...] (test code = 2219) 16 U/L LIPID [id number] 00:00:00 Test Item Value Reference Range Interpretation Comments CHOLESTEROL (test code = 2210) 166 MG/DL TRIGLYCERIDES (test code = 2232) 72 MG/DL HDL CHOLESTEROL (test code = 2220) 47 MG/DL CALCULATED LDL CHOL (test code = 105 MG/DL 2236) RISK RATIO LDL/HDL (test code = 2.23 RATIO 2238) LIPID [id number] 00:00:00 Test Item Value Reference Range Interpretation Comments CHOLESTEROL (test code = 2210) 166 MG/DL TRIGLYCERIDES (test code = 2232) 72 MG/DL HDL CHOLESTEROL (test code = 2220) 47 MG/DL CALCULATED LDL CHOL (test code = 105 MG/DL 2236) RISK RATIO LDL/HDL (test code = 2.23 RATIO 2237) [id number] 00:00:00 Test Item Value Reference Range Interpretation Comments TSH (test code = 2821) 1.2 UIU/ML [id number] 00:00:00 Test Item Value Reference Range Interpretation Comments TSH (test code = 2821) 1.2 UIU/ML [id number] 00:00:00 Test Item Value Reference Range Interpretation Comments TSH (test code = 2821) 1.2 UIU/ML [id number] 00:00:00 Test Item Value Reference Range Interpretation Comments TSH (test code = 2821) 1.2 UIU/ML [id number] 00:00:00 Test Item Value Reference Range Interpretation Comments TSH (test code = 2821) 1.2 UIU/ML COMPREHENSIVE METABOLIC [id number] 00:00:00 Test Item Value Reference Range Interpretation Comments GLUCOSE (test code = 2217) 100 MG/DL BUN (test code = 2208) 10 MG/DL CREATININE (test code = 2214) 0.61 MG/DL eGFR AMER. (test code 134 ML/MIN/1.73 = 21698) eGFR NON- AMER. (test 116 ML/MIN/1.73 code = 15411) CALCULATED BUN/CREAT (test 16 RATIO code = [...] code = 2219) 16 U/L COMPREHENSIVE METABOLIC [id number] 00:00:00 Test Item Value Reference Range Interpretation Comments GLUCOSE (test code = 2217) 100 MG/DL BUN (test code = 2208) 10 MG/DL CREATININE (test code = 2214) 0.61 MG/DL eGFR AMER. (test code 134 ML/MIN/1.73 = 26295) eGFR NON- AMER. (test 116 ML/MIN/1.73 code = 38974) CALCULATED BUN/CREAT (test 16 RATIO code = [...] (test code = 2219) 16 U/L LIPID [id number] 00:00:00 Test Item Value Reference Range Interpretation Comments CHOLESTEROL (test code = 2210) 166 MG/DL TRIGLYCERIDES (test code = 2232) 72 MG/DL HDL CHOLESTEROL (test code = 2220) 47 MG/DL CALCULATED LDL CHOL (test code = 105 MG/DL 2236) RISK RATIO LDL/HDL (test code = 2.23 RATIO 2238) LIPID [id number] 00:00:00 Test Item Value Reference Range Interpretation Comments CHOLESTEROL (test code = 2210) 166 MG/DL TRIGLYCERIDES (test code = 2232) 72 MG/DL HDL CHOLESTEROL (test code = 2220) 47 MG/DL CALCULATED LDL CHOL (test code = 105 MG/DL 2236) RISK RATIO LDL/HDL (test code = 2.23 RATIO 2238) [id number] 00:00:00 Test Item Value Reference Range Interpretation Comments TSH (test code = 2821) 1.2 UIU/ML [id number] 00:00:00 Test Item Value Reference Range Interpretation Comments TSH (test code = 2821) 1.2 UIU/ML [id number] 00:00:00 Test Item Value Reference Range Interpretation Comments TSH (test code = 2821) 1.2 UIU/ML COMPREHENSIVE METABOLIC [id number] 00:00:00 Test Item Value Reference Range Interpretation Comments GLUCOSE (test code = 2217) 100 MG/DL BUN (test code = 2208) 10 MG/DL CREATININE (test code = 2214) 0.61 MG/DL eGFR AMER. (test code 134 ML/MIN/1.73 = 25291) eGFR NON- AMER. (test 116 ML/MIN/1.73 code = 58917) CALCULATED BUN/CREAT (test 16 RATIO code = [...] code = 2219) 16 U/L COMPREHENSIVE METABOLIC [id number] 00:00:00 Test Item Value Reference Range Interpretation Comments GLUCOSE (test code = 2217) 100 MG/DL BUN (test code = 2208) 10 MG/DL CREATININE (test code = 2214) 0.61 MG/DL eGFR AMER. (test code 134 ML/MIN/1.73 = 65088) eGFR NON- AMER. (test 116 ML/MIN/1.73 code = 53616) CALCULATED BUN/CREAT (test 16 RATIO code = [...] (test code = 2219) 16 U/L LIPID [id number] 00:00:00 Test Item Value Reference Range Interpretation Comments CHOLESTEROL (test code = 2210) 166 MG/DL TRIGLYCERIDES (test code = 2232) 72 MG/DL HDL CHOLESTEROL (test code = 2220) 47 MG/DL CALCULATED LDL CHOL (test code = 105 MG/DL 2236) RISK RATIO LDL/HDL (test code = 2.23 RATIO 2238) LIPID [id number] 00:00:00 Test Item Value Reference Range Interpretation Comments CHOLESTEROL (test code = 2210) 166 MG/DL TRIGLYCERIDES (test code = 2232) 72 MG/DL HDL CHOLESTEROL (test code = 2220) 47 MG/DL CALCULATED LDL CHOL (test code = 105 MG/DL 7) RISK RATIO LDL/HDL (test code = 2.23 RATIO 2238) [id number] 00:00:00 Test Item Value Reference Range Interpretation Comments TSH (test code = 2821) 1.2 UIU/ML [id number] 00:00:00 Test Item Value Reference Range Interpretation Comments TSH (test code = 2821) 1.2 UIU/ML [id number] 00:00:00 Test Item Value Reference Range Interpretation Comments TSH (test code = 2821) 1.2 UIU/ML CBC W/AUTO [id number] 00:00:00 Test Item Value Reference Range Interpretation [...] code = 1015) 243 K/UL CBC W/AUTO [id number] 00:00:00 Test Item Value Reference Range Interpretation [...] code = 1015) 243 K/UL CBC W/AUTO [id number] 00:00:00 Test Item Value Reference Range Interpretation [...] (test code = 1015) 243 K/UL HEMOGLOBIN [id number] 00:00:00 Test Item Value Reference Range Interpretation Comments HEMOGLOBIN A1c (test code = 89532) 6.4 % HEMOGLOBIN [id number] 00:00:00 Test Item Value Reference Range Interpretation Comments HEMOGLOBIN A1c (test code = 00328) 6.4 % HEMOGLOBIN [id number] 00:00:00 Test Item Value Reference Range Interpretation Comments HEMOGLOBIN A1c (test code = 16835) 6.4 % CBC W/AUTO [id number] 00:00:00 Test Item Value Reference Range Interpretation [...] code = 1015) 243 K/UL CBC W/AUTO [id number] 00:00:00 Test Item Value Reference Range Interpretation [...] code = 1015) 243 K/UL CBC W/AUTO [id number] 00:00:00 Test Item Value Reference Range Interpretation [...] (test code = 1015) 243 K/UL HEMOGLOBIN [id number] 00:00:00 Test Item Value Reference Range Interpretation Comments HEMOGLOBIN A1c (test code = 87049) 6.4 % HEMOGLOBIN [id number] 00:00:00 Test Item Value Reference Range Interpretation Comments HEMOGLOBIN A1c (test code = 41359) 6.4 % HEMOGLOBIN [id number] 00:00:00 Test Item Value Reference Range Interpretation Comments HEMOGLOBIN A1c (test code = 10019) 6.4 % CBC W/AUTO [id number] 00:00:00 Test Item Value Reference Range Interpretation [...] code = 1015) 243 K/UL CBC W/AUTO [id number] 00:00:00 Test Item Value Reference Range Interpretation [...] code = 1015) 243 K/UL CBC W/AUTO [id number] 00:00:00 Test Item Value Reference Range Interpretation [...] (test code = 1015) 243 K/UL HEMOGLOBIN [id number] 00:00:00 Test Item Value Reference Range Interpretation Comments HEMOGLOBIN A1c (test code = 77290) 6.4 % HEMOGLOBIN [id number] 00:00:00 Test Item Value Reference Range Interpretation Comments HEMOGLOBIN A1c (test code = 99126) 6.4 % HEMOGLOBIN [id number] 00:00:00 Test Item Value Reference Range Interpretation Comments HEMOGLOBIN A1c (test code = 65106) 6.4 % CBC W/AUTO [id number] 00:00:00 Test Item Value Reference Range Interpretation [...] code = 1015) 243 K/UL CBC W/AUTO [id number] 00:00:00 Test Item Value Reference Range Interpretation [...] code = 1015) 243 K/UL CBC W/AUTO [id number] 00:00:00 Test Item Value Reference Range Interpretation [...] (test code = 1015) 243 K/UL HEMOGLOBIN [id number] 00:00:00 Test Item Value Reference Range Interpretation Comments HEMOGLOBIN A1c (test code = 33833) 6.4 % HEMOGLOBIN [id number] 00:00:00 Test Item Value Reference Range Interpretation Comments HEMOGLOBIN A1c (test code = 51452) 6.4 % HEMOGLOBIN [id number] 00:00:00 Test Item Value Reference Range Interpretation Comments HEMOGLOBIN A1c (test code = 38659) 6.4 % CBC W/AUTO [id number] 00:00:00 Test Item Value Reference Range Interpretation [...] code = 1015) 243 K/UL CBC W/AUTO [id number] 00:00:00 Test Item Value Reference Range Interpretation [...] code = 1015) 243 K/UL CBC W/AUTO [id number] 00:00:00 Test Item Value Reference Range Interpretation [...] (test code = 1015) 243 K/UL HEMOGLOBIN [id number] 00:00:00 Test Item Value Reference Range Interpretation Comments HEMOGLOBIN A1c (test code = 09809) 6.4 % HEMOGLOBIN [id number] 00:00:00 Test Item Value Reference Range Interpretation Comments HEMOGLOBIN A1c (test code = 65282) 6.4 % HEMOGLOBIN [id number] 00:00:00 Test Item Value Reference Range Interpretation Comments HEMOGLOBIN A1c (test code = 72792) 6.4 % CBC W/AUTO [id number] 00:00:00 Test Item Value Reference Range Interpretation [...] code = 1015) 243 K/UL CBC W/AUTO [id number] 00:00:00 Test Item Value Reference Range Interpretation [...] code = 1015) 243 K/UL CBC W/AUTO [id number] 00:00:00 Test Item Value Reference Range Interpretation [...] (test code = 1015) 243 K/UL HEMOGLOBIN [id number] 00:00:00 Test Item Value Reference Range Interpretation Comments HEMOGLOBIN A1c (test code = 96607) 6.4 % HEMOGLOBIN [id number] 00:00:00 Test Item Value Reference Range Interpretation Comments HEMOGLOBIN A1c (test code = 60131) 6.4 % HEMOGLOBIN [id number] 00:00:00 Test Item Value Reference Range Interpretation Comments HEMOGLOBIN A1c (test code = 52148) 6.4 % CBC W/AUTO [id number] 00:00:00 Test Item Value Reference Range Interpretation [...] code = 1015) 243 K/UL CBC W/AUTO [id number] 00:00:00 Test Item Value Reference Range Interpretation [...] code = 1015) 243 K/UL CBC W/AUTO [id number] 00:00:00 Test Item Value Reference Range Interpretation [...] (test code = 1015) 243 K/UL HEMOGLOBIN [id number] 00:00:00 Test Item Value Reference Range Interpretation Comments HEMOGLOBIN A1c (test code = 94815) 6.4 % HEMOGLOBIN [id number] 00:00:00 Test Item Value Reference Range Interpretation Comments HEMOGLOBIN A1c (test code = 49445) 6.4 % HEMOGLOBIN [id number] 00:00:00 Test Item Value Reference Range Interpretation Comments HEMOGLOBIN A1c (test code = 39554) 6.4 % CBC W/AUTO [id number] 00:00:00 Test Item Value Reference Range Interpretation [...] code = 1015) 243 K/UL CBC W/AUTO [id number] 00:00:00 Test Item Value Reference Range Interpretation [...] (test code = 1015) 243 K/UL HEMOGLOBIN [id number] 00:00:00 Test Item Value Reference Range Interpretation Comments HEMOGLOBIN A1c (test code = 25350) 6.4 % HEMOGLOBIN [id number] 00:00:00 Test Item Value Reference Range Interpretation Comments HEMOGLOBIN A1c (test code = 61034) 6.4 % CBC W/AUTO [id number] 00:00:00 Test Item Value Reference Range Interpretation [...] code = 1015) 243 K/UL CBC W/AUTO [id number] 00:00:00 Test Item Value Reference Range Interpretation [...] code = 1015) 243 K/UL CBC W/AUTO [id number] 00:00:00 Test Item Value Reference Range Interpretation [...] (test code = 1015) 243 K/UL HEMOGLOBIN [id number] 00:00:00 Test Item Value Reference Range Interpretation Comments HEMOGLOBIN A1c (test code = 88231) 6.4 % HEMOGLOBIN [id number] 00:00:00 Test Item Value Reference Range Interpretation Comments HEMOGLOBIN A1c (test code = 84780) 6.4 % HEMOGLOBIN [id number] 00:00:00 Test Item Value Reference Range Interpretation Comments HEMOGLOBIN A1c (test code = 18854) 6.4 % CBC W/AUTO [id number] 00:00:00 Test Item Value Reference Range Interpretation [...] code = 1015) 243 K/UL CBC W/AUTO [id number] 00:00:00 Test Item Value Reference Range Interpretation [...] code = 1015) 243 K/UL CBC W/AUTO [id number] 00:00:00 Test Item Value Reference Range Interpretation [...] (test code = 1015) 243 K/UL HEMOGLOBIN [id number] 00:00:00 Test Item Value Reference Range Interpretation Comments HEMOGLOBIN A1c (test code = 81478) 6.4 % HEMOGLOBIN [id number] 00:00:00 Test Item Value Reference Range Interpretation Comments HEMOGLOBIN A1c (test code = 71276) 6.4 % HEMOGLOBIN [id number] 00:00:00 Test Item Value Reference Range Interpretation Comments HEMOGLOBIN A1c (test code = 40678) 6.4 % CBC W/AUTO [id number] 00:00:00 Test Item Value Reference Range Interpretation [...] code = 1015) 243 K/UL CBC W/AUTO [id number] 00:00:00 Test Item Value Reference Range Interpretation [...] code = 1015) 243 K/UL CBC W/AUTO [id number] 00:00:00 Test Item Value Reference Range Interpretation [...] (test code = 1015) 243 K/UL HEMOGLOBIN [id number] 00:00:00 Test Item Value Reference Range Interpretation Comments HEMOGLOBIN A1c (test code = 31968) 6.4 % HEMOGLOBIN [id number] 00:00:00 Test Item Value Reference Range Interpretation Comments HEMOGLOBIN A1c (test code = 98077) 6.4 % HEMOGLOBIN [id number] 00:00:00 Test Item Value Reference Range Interpretation Comments HEMOGLOBIN A1c (test code = 30971) 6.4 % CHLAMYDIA, AMPLIFIED, [id number] 00:00:00 Test Item Value Reference Range Interpretation Comments CHLAMYDIA, AMPLIFIED (test code = NEGATIVE 11691) CHLAMYDIA, AMPLIFIED, [id number] 00:00:00 Test Item Value Reference Range Interpretation Comments CHLAMYDIA, AMPLIFIED (test code = NEGATIVE 07887) GC, AMPLIFIED, [id number] 00:00:00 Test Item Value Reference Range Interpretation Comments GONORRHEA, AMPLIFIED (test code = NEGATIVE 19383) GC, AMPLIFIED, [id number] 00:00:00 Test Item Value Reference Range Interpretation Comments GONORRHEA, AMPLIFIED (test code = NEGATIVE 45848) HIV AB/AG COMBO RFLX [id number] 00:00:00 Test Item Value Reference Range Interpretation Comments HIV AB/AG COMBO RFLX CONF (test NON-REACTIVE code = 3514) HIV AB/AG COMBO RFLX [id number] 00:00:00 Test Item Value Reference Range Interpretation Comments HIV AB/AG COMBO RFLX CONF (test NON-REACTIVE code = 3514) [id number] 00:00:00 Test Item Value Reference Range Interpretation Comments RPR RESULT (test code = NON-REACTIVE 3501) RPR TITER (test code = 3500) NOT INDIC. TITER [id number] 00:00:00 Test Item Value Reference Range Interpretation Comments RPR RESULT (test code = NON-REACTIVE 3501) RPR TITER (test code = 3500) NOT INDIC. TITER [id number] 00:00:00 Test Item Value Reference Range Interpretation [...] INTERPRETATION HEPATITIS B: (NOTE) (test code = 78057) INTERPRETATION HEPATITIS C: (NOTE) (test code = 89224) HEPATITIS PROFILE (A,B,C)2015-06-24 00:00:00 Test Item Value [...] INTERPRETATION HEPATITIS B: (NOTE) (test code = 98673) INTERPRETATION HEPATITIS C: (NOTE) (test code = 89039) COMPREHENSIVE METABOLIC [id number] 00:00:00 Test Item Value Reference Range Interpretation Comments GLUCOSE (test code = 2217) 105 MG/DL BUN (test code = 2208) 11 MG/DL CREATININE (test code = 2214) 0.80 MG/DL eGFR AMER. (test code 109 ML/MIN/1.73 = 23773) eGFR NON- AMER. (test 94 ML/MIN/1.73 code = 53769) CALCULATED BUN/CREAT (test 14 RATIO code = [...] code = 2219) 14 U/L COMPREHENSIVE METABOLIC [id number] 00:00:00 Test Item Value Reference Range Interpretation Comments GLUCOSE (test code = 2217) 105 MG/DL BUN (test code = 2208) 11 MG/DL CREATININE (test code = 2214) 0.80 MG/DL eGFR AMER. (test code 109 ML/MIN/1.73 = 77848) eGFR NON- AMER. (test 94 ML/MIN/1.73 code = 16502) CALCULATED BUN/CREAT (test 14 RATIO code = [...] (test code = 2219) 14 U/L LIPID [id number] 00:00:00 Test Item Value Reference Range Interpretation Comments CHOLESTEROL (test code = 2210) 211 MG/DL TRIGLYCERIDES (test code = 2232) 209 MG/DL HDL CHOLESTEROL (test code = 2220) 38 MG/DL CALCULATED LDL CHOL (test code = 131 MG/DL 2237) RISK RATIO LDL/HDL (test code = 3.45 RATIO 2238) LIPID [id number] 00:00:00 Test Item Value Reference Range Interpretation Comments CHOLESTEROL (test code = 2210) 211 MG/DL TRIGLYCERIDES (test code = 2232) 209 MG/DL HDL CHOLESTEROL (test code = 2220) 38 MG/DL CALCULATED LDL CHOL (test code = 131 MG/DL 2237) RISK RATIO LDL/HDL (test code = 3.45 RATIO 2238) CBC W/AUTO [id number] 00:00:00 Test Item Value Reference Range Interpretation [...] code = 1015) 254 K/UL CBC W/AUTO [id number] 00:00:00 Test Item Value Reference Range Interpretation [...] code = 1015) 254 K/UL CBC W/AUTO [id number] 00:00:00 Test Item Value Reference Range Interpretation [...] (test code = 1015) 254 K/UL HEMOGLOBIN [id number] 00:00:00 Test Item Value Reference Range Interpretation Comments HEMOGLOBIN A1c (test code = 32253) 6.9 % HEMOGLOBIN [id number] 00:00:00 Test Item Value Reference Range Interpretation Comments HEMOGLOBIN A1c (test code = 40686) 6.9 % HEMOGLOBIN [id number] 00:00:00 Test Item Value Reference Range Interpretation Comments HEMOGLOBIN A1c (test code = 49510) 6.9 % [id number] 00:00:00 Test Item Value Reference Range Interpretation Comments TSH (test code = 2821) 0.5 UIU/ML [id number] 00:00:00 Test Item Value Reference Range Interpretation Comments TSH (test code = 2821) 0.5 UIU/ML [id number] 00:00:00 Test Item Value Reference Range Interpretation Comments TSH (test code = 2821) 0.5 UIU/ML HEPATITIS A IgM [REFLEX]2015-06-24 00:00:00 Test Item Value Reference Range Interpretation Comments HEPATITIS A IgM (test code = NON-REACTIVE 2728) CHLAMYDIA, AMPLIFIED, [id number] 00:00:00 Test Item Value Reference Range Interpretation Comments CHLAMYDIA, AMPLIFIED (test code = NEGATIVE 30629) CHLAMYDIA, AMPLIFIED, [id number] 00:00:00 Test Item Value Reference Range Interpretation Comments CHLAMYDIA, AMPLIFIED (test code = NEGATIVE 12452) GC, AMPLIFIED, [id number] 00:00:00 Test Item Value Reference Range Interpretation Comments GONORRHEA, AMPLIFIED (test code = NEGATIVE 11308) GC, AMPLIFIED, [id number] 00:00:00 Test Item Value Reference Range Interpretation Comments GONORRHEA, AMPLIFIED (test code = NEGATIVE 82986) HIV AB/AG COMBO RFLX [id number] 00:00:00 Test Item Value Reference Range Interpretation Comments HIV AB/AG COMBO RFLX CONF (test NON-REACTIVE code = 3514) HIV AB/AG COMBO RFLX [id number] 00:00:00 Test Item Value Reference Range Interpretation Comments HIV AB/AG COMBO RFLX CONF (test NON-REACTIVE code = 3514) [id number] 00:00:00 Test Item Value Reference Range Interpretation Comments RPR RESULT (test code = NON-REACTIVE 3501) RPR TITER (test code = 3500) NOT INDIC. TITER [id number] 00:00:00 Test Item Value Reference Range Interpretation Comments RPR RESULT (test code = NON-REACTIVE 3501) RPR TITER (test code = 3500) NOT INDIC. TITER [id number] 00:00:00 Test Item Value Reference Range Interpretation [...] INTERPRETATION HEPATITIS B: (NOTE) (test code = 43076) INTERPRETATION HEPATITIS C: (NOTE) (test code = 42539) HEPATITIS PROFILE (A,B,C)2015-06-24 00:00:00 Test Item Value [...] INTERPRETATION HEPATITIS B: (NOTE) (test code = 76770) INTERPRETATION HEPATITIS C: (NOTE) (test code = 42217) COMPREHENSIVE METABOLIC [id number] 00:00:00 Test Item Value Reference Range Interpretation Comments GLUCOSE (test code = 2217) 105 MG/DL BUN (test code = 2208) 11 MG/DL CREATININE (test code = 2214) 0.80 MG/DL eGFR AMER. (test code 109 ML/MIN/1.73 = 13056) eGFR NON- AMER. (test 94 ML/MIN/1.73 code = 77694) CALCULATED BUN/CREAT (test 14 RATIO code = [...] code = 2219) 14 U/L COMPREHENSIVE METABOLIC [id number] 00:00:00 Test Item Value Reference Range Interpretation Comments GLUCOSE (test code = 2217) 105 MG/DL BUN (test code = 2208) 11 MG/DL CREATININE (test code = 2214) 0.80 MG/DL eGFR AMER. (test code 109 ML/MIN/1.73 = 21238) eGFR NON- AMER. (test 94 ML/MIN/1.73 code = 38726) CALCULATED BUN/CREAT (test 14 RATIO code = [...] (test code = 2219) 14 U/L LIPID [id number] 00:00:00 Test Item Value Reference Range Interpretation Comments CHOLESTEROL (test code = 2210) 211 MG/DL TRIGLYCERIDES (test code = 2232) 209 MG/DL HDL CHOLESTEROL (test code = 2220) 38 MG/DL CALCULATED LDL CHOL (test code = 131 MG/DL 2237) RISK RATIO LDL/HDL (test code = 3.45 RATIO 2238) LIPID [id number] 00:00:00 Test Item Value Reference Range Interpretation Comments CHOLESTEROL (test code = 2210) 211 MG/DL TRIGLYCERIDES (test code = 2232) 209 MG/DL HDL CHOLESTEROL (test code = 2220) 38 MG/DL CALCULATED LDL CHOL (test code = 131 MG/DL 2237) RISK RATIO LDL/HDL (test code = 3.45 RATIO 2238) CBC W/AUTO [id number] 00:00:00 Test Item Value Reference Range Interpretation [...] code = 1015) 254 K/UL CBC W/AUTO [id number] 00:00:00 Test Item Value Reference Range Interpretation [...] code = 1015) 254 K/UL CBC W/AUTO [id number] 00:00:00 Test Item Value Reference Range Interpretation [...] (test code = 1015) 254 K/UL HEMOGLOBIN [id number] 00:00:00 Test Item Value Reference Range Interpretation Comments HEMOGLOBIN A1c (test code = 43121) 6.9 % HEMOGLOBIN [id number] 00:00:00 Test Item Value Reference Range Interpretation Comments HEMOGLOBIN A1c (test code = 30001) 6.9 % HEMOGLOBIN [id number] 00:00:00 Test Item Value Reference Range Interpretation Comments HEMOGLOBIN A1c (test code = 52346) 6.9 % [id number] 00:00:00 Test Item Value Reference Range Interpretation Comments TSH (test code = 2821) 0.5 UIU/ML [id number] 00:00:00 Test Item Value Reference Range Interpretation Comments TSH (test code = 2821) 0.5 UIU/ML [id number] 00:00:00 Test Item Value Reference Range Interpretation Comments TSH (test code = 2821) 0.5 UIU/ML HEPATITIS A IgM [REFLEX]2015-06-24 00:00:00 Test Item Value Reference Range Interpretation Comments HEPATITIS A IgM (test code = NON-REACTIVE 8) CHLAMYDIA, AMPLIFIED, [id number] 00:00:00 Test Item Value Reference Range Interpretation Comments CHLAMYDIA, AMPLIFIED (test code = NEGATIVE 84885) CHLAMYDIA, AMPLIFIED, [id number] 00:00:00 Test Item Value Reference Range Interpretation Comments CHLAMYDIA, AMPLIFIED (test code = NEGATIVE 81990) GC, AMPLIFIED, [id number] 00:00:00 Test Item Value Reference Range Interpretation Comments GONORRHEA, AMPLIFIED (test code = NEGATIVE 75083) GC, AMPLIFIED, [id number] 00:00:00 Test Item Value Reference Range Interpretation Comments GONORRHEA, AMPLIFIED (test code = NEGATIVE 86506) HIV AB/AG COMBO RFLX [id number] 00:00:00 Test Item Value Reference Range Interpretation Comments HIV AB/AG COMBO RFLX CONF (test NON-REACTIVE code = 3514) HIV AB/AG COMBO RFLX [id number] 00:00:00 Test Item Value Reference Range Interpretation Comments HIV AB/AG COMBO RFLX CONF (test NON-REACTIVE code = 3514) [id number] 00:00:00 Test Item Value Reference Range Interpretation Comments RPR RESULT (test code = NON-REACTIVE 3501) RPR TITER (test code = 3500) NOT INDIC. TITER [id number] 00:00:00 Test Item Value Reference Range Interpretation Comments RPR RESULT (test code = NON-REACTIVE 3501) RPR TITER (test code = 3500) NOT INDIC. TITER [id number] 00:00:00 Test Item Value Reference Range Interpretation [...] INTERPRETATION HEPATITIS B: (NOTE) (test code = 68941) INTERPRETATION HEPATITIS C: (NOTE) (test code = 68607) HEPATITIS PROFILE (A,B,C)2015-06-24 00:00:00 Test Item Value [...] INTERPRETATION HEPATITIS B: (NOTE) (test code = 18977) INTERPRETATION HEPATITIS C: (NOTE) (test code = 20471) COMPREHENSIVE METABOLIC [id number] 00:00:00 Test Item Value Reference Range Interpretation Comments GLUCOSE (test code = 2217) 105 MG/DL BUN (test code = 2208) 11 MG/DL CREATININE (test code = 2214) 0.80 MG/DL eGFR AMER. (test code 109 ML/MIN/1.73 = 47789) eGFR NON- AMER. (test 94 ML/MIN/1.73 code = 71986) CALCULATED BUN/CREAT (test 14 RATIO code = [...] code = 2219) 14 U/L COMPREHENSIVE METABOLIC [id number] 00:00:00 Test Item Value Reference Range Interpretation Comments GLUCOSE (test code = 2217) 105 MG/DL BUN (test code = 2208) 11 MG/DL CREATININE (test code = 2214) 0.80 MG/DL eGFR AMER. (test code 109 ML/MIN/1.73 = 24100) eGFR NON- AMER. (test 94 ML/MIN/1.73 code = 13946) CALCULATED BUN/CREAT (test 14 RATIO code = [...] (test code = 2219) 14 U/L LIPID [id number] 00:00:00 Test Item Value Reference Range Interpretation Comments CHOLESTEROL (test code = 2210) 211 MG/DL TRIGLYCERIDES (test code = 2232) 209 MG/DL HDL CHOLESTEROL (test code = 2220) 38 MG/DL CALCULATED LDL CHOL (test code = 131 MG/DL 2237) RISK RATIO LDL/HDL (test code = 3.45 RATIO 2238) LIPID [id number] 00:00:00 Test Item Value Reference Range Interpretation Comments CHOLESTEROL (test code = 2210) 211 MG/DL TRIGLYCERIDES (test code = 2232) 209 MG/DL HDL CHOLESTEROL (test code = 2220) 38 MG/DL CALCULATED LDL CHOL (test code = 131 MG/DL 2237) RISK RATIO LDL/HDL (test code = 3.45 RATIO 2238) CBC W/AUTO [id number] 00:00:00 Test Item Value Reference Range Interpretation [...] code = 1015) 254 K/UL CBC W/AUTO [id number] 00:00:00 Test Item Value Reference Range Interpretation [...] code = 1015) 254 K/UL CBC W/AUTO [id number] 00:00:00 Test Item Value Reference Range Interpretation [...] (test code = 1015) 254 K/UL HEMOGLOBIN [id number] 00:00:00 Test Item Value Reference Range Interpretation Comments HEMOGLOBIN A1c (test code = 92728) 6.9 % HEMOGLOBIN [id number] 00:00:00 Test Item Value Reference Range Interpretation Comments HEMOGLOBIN A1c (test code = 95903) 6.9 % HEMOGLOBIN [id number] 00:00:00 Test Item Value Reference Range Interpretation Comments HEMOGLOBIN A1c (test code = 68102) 6.9 % [id number] 00:00:00 Test Item Value Reference Range Interpretation Comments TSH (test code = 2821) 0.5 UIU/ML [id number] 00:00:00 Test Item Value Reference Range Interpretation Comments TSH (test code = 2821) 0.5 UIU/ML [id number] 00:00:00 Test Item Value Reference Range Interpretation Comments TSH (test code = 2821) 0.5 UIU/ML HEPATITIS A IgM [REFLEX]2015-06-24 00:00:00 Test Item Value Reference Range Interpretation Comments HEPATITIS A IgM (test code = NON-REACTIVE 2728) CHLAMYDIA, AMPLIFIED, [id number] 00:00:00 Test Item Value Reference Range Interpretation Comments CHLAMYDIA, AMPLIFIED (test code = NEGATIVE 26950) CHLAMYDIA, AMPLIFIED, [id number] 00:00:00 Test Item Value Reference Range Interpretation Comments CHLAMYDIA, AMPLIFIED (test code = NEGATIVE 56010) GC, AMPLIFIED, [id number] 00:00:00 Test Item Value Reference Range Interpretation Comments GONORRHEA, AMPLIFIED (test code = NEGATIVE 70876) GC, AMPLIFIED, [id number] 00:00:00 Test Item Value Reference Range Interpretation Comments GONORRHEA, AMPLIFIED (test code = NEGATIVE 35643) HIV AB/AG COMBO RFLX [id number] 00:00:00 Test Item Value Reference Range Interpretation Comments HIV AB/AG COMBO RFLX CONF (test NON-REACTIVE code = 3514) HIV AB/AG COMBO RFLX [id number] 00:00:00 Test Item Value Reference Range Interpretation Comments HIV AB/AG COMBO RFLX CONF (test NON-REACTIVE code = 3514) [id number] 00:00:00 Test Item Value Reference Range Interpretation Comments RPR RESULT (test code = NON-REACTIVE 3501) RPR TITER (test code = 3500) NOT INDIC. TITER [id number] 00:00:00 Test Item Value Reference Range Interpretation Comments RPR RESULT (test code = NON-REACTIVE 3501) RPR TITER (test code = 3500) NOT INDIC. TITER [id number] 00:00:00 Test Item Value Reference Range Interpretation [...] INTERPRETATION HEPATITIS B: (NOTE) (test code = 75230) INTERPRETATION HEPATITIS C: (NOTE) (test code = 53420) HEPATITIS PROFILE (A,B,C)2015-06-24 00:00:00 Test Item Value [...] INTERPRETATION HEPATITIS B: (NOTE) (test code = 35424) INTERPRETATION HEPATITIS C: (NOTE) (test code = 91453) COMPREHENSIVE METABOLIC [id number] 00:00:00 Test Item Value Reference Range Interpretation Comments GLUCOSE (test code = 2217) 105 MG/DL BUN (test code = 2208) 11 MG/DL CREATININE (test code = 2214) 0.80 MG/DL eGFR AMER. (test code 109 ML/MIN/1.73 = 09595) eGFR NON- AMER. (test 94 ML/MIN/1.73 code = 62584) CALCULATED BUN/CREAT (test 14 RATIO code = [...] code = 2219) 14 U/L COMPREHENSIVE METABOLIC [id number] 00:00:00 Test Item Value Reference Range Interpretation Comments GLUCOSE (test code = 2217) 105 MG/DL BUN (test code = 2208) 11 MG/DL CREATININE (test code = 2214) 0.80 MG/DL eGFR AMER. (test code 109 ML/MIN/1.73 = 77020) eGFR NON- AMER. (test 94 ML/MIN/1.73 code = 12652) CALCULATED BUN/CREAT (test 14 RATIO code = [...] (test code = 2219) 14 U/L LIPID [id number] 00:00:00 Test Item Value Reference Range Interpretation Comments CHOLESTEROL (test code = 2210) 211 MG/DL TRIGLYCERIDES (test code = 2232) 209 MG/DL HDL CHOLESTEROL (test code = 2220) 38 MG/DL CALCULATED LDL CHOL (test code = 131 MG/DL 2237) RISK RATIO LDL/HDL (test code = 3.45 RATIO 2238) LIPID [id number] 00:00:00 Test Item Value Reference Range Interpretation Comments CHOLESTEROL (test code = 2210) 211 MG/DL TRIGLYCERIDES (test code = 2232) 209 MG/DL HDL CHOLESTEROL (test code = 2220) 38 MG/DL CALCULATED LDL CHOL (test code = 131 MG/DL 2237) RISK RATIO LDL/HDL (test code = 3.45 RATIO 2238) CBC W/AUTO [id number] 00:00:00 Test Item Value Reference Range Interpretation [...] code = 1015) 254 K/UL CBC W/AUTO [id number] 00:00:00 Test Item Value Reference Range Interpretation [...] code = 1015) 254 K/UL CBC W/AUTO [id number] 00:00:00 Test Item Value Reference Range Interpretation [...] (test code = 1015) 254 K/UL HEMOGLOBIN [id number] 00:00:00 Test Item Value Reference Range Interpretation Comments HEMOGLOBIN A1c (test code = 62143) 6.9 % HEMOGLOBIN [id number] 00:00:00 Test Item Value Reference Range Interpretation Comments HEMOGLOBIN A1c (test code = 38583) 6.9 % HEMOGLOBIN [id number] 00:00:00 Test Item Value Reference Range Interpretation Comments HEMOGLOBIN A1c (test code = 85556) 6.9 % [id number] 00:00:00 Test Item Value Reference Range Interpretation Comments TSH (test code = 2821) 0.5 UIU/ML [id number] 00:00:00 Test Item Value Reference Range Interpretation Comments TSH (test code = 2821) 0.5 UIU/ML [id number] 00:00:00 Test Item Value Reference Range Interpretation Comments TSH (test code = 2821) 0.5 UIU/ML HEPATITIS A IgM [REFLEX]2015-06-24 00:00:00 Test Item Value Reference Range Interpretation Comments HEPATITIS A IgM (test code = NON-REACTIVE 3688) CHLAMYDIA, AMPLIFIED, [id number] 00:00:00 Test Item Value Reference Range Interpretation Comments CHLAMYDIA, AMPLIFIED (test code = NEGATIVE 62330) CHLAMYDIA, AMPLIFIED, [id number] 00:00:00 Test Item Value Reference Range Interpretation Comments CHLAMYDIA, AMPLIFIED (test code = NEGATIVE 41353) GC, AMPLIFIED, [id number] 00:00:00 Test Item Value Reference Range Interpretation Comments GONORRHEA, AMPLIFIED (test code = NEGATIVE 39663) GC, AMPLIFIED, [id number] 00:00:00 Test Item Value Reference Range Interpretation Comments GONORRHEA, AMPLIFIED (test code = NEGATIVE 81678) HIV AB/AG COMBO RFLX [id number] 00:00:00 Test Item Value Reference Range Interpretation Comments HIV AB/AG COMBO RFLX CONF (test NON-REACTIVE code = 3514) HIV AB/AG COMBO RFLX [id number] 00:00:00 Test Item Value Reference Range Interpretation Comments HIV AB/AG COMBO RFLX CONF (test NON-REACTIVE code = 3514) [id number] 00:00:00 Test Item Value Reference Range Interpretation Comments RPR RESULT (test code = NON-REACTIVE 3501) RPR TITER (test code = 3500) NOT INDIC. TITER [id number] 00:00:00 Test Item Value Reference Range Interpretation Comments RPR RESULT (test code = NON-REACTIVE 3501) RPR TITER (test code = 3500) NOT INDIC. TITER [id number] 00:00:00 Test Item Value Reference Range Interpretation [...] INTERPRETATION HEPATITIS B: (NOTE) (test code = 33158) INTERPRETATION HEPATITIS C: (NOTE) (test code = 97727) HEPATITIS PROFILE (A,B,C)2015-06-24 00:00:00 Test Item Value [...] INTERPRETATION HEPATITIS B: (NOTE) (test code = 18527) INTERPRETATION HEPATITIS C: (NOTE) (test code = 38027) COMPREHENSIVE METABOLIC [id number] 00:00:00 Test Item Value Reference Range Interpretation Comments GLUCOSE (test code = 2217) 105 MG/DL BUN (test code = 2208) 11 MG/DL CREATININE (test code = 2214) 0.80 MG/DL eGFR AMER. (test code 109 ML/MIN/1.73 = 98775) eGFR NON- AMER. (test 94 ML/MIN/1.73 code = 20681) CALCULATED BUN/CREAT (test 14 RATIO code = [...] code = 2219) 14 U/L COMPREHENSIVE METABOLIC [id number] 00:00:00 Test Item Value Reference Range Interpretation Comments GLUCOSE (test code = 2217) 105 MG/DL BUN (test code = 2208) 11 MG/DL CREATININE (test code = 2214) 0.80 MG/DL eGFR AMER. (test code 109 ML/MIN/1.73 = 75658) eGFR NON- AMER. (test 94 ML/MIN/1.73 code = 21618) CALCULATED BUN/CREAT (test 14 RATIO code = [...] (test code = 2219) 14 U/L LIPID [id number] 00:00:00 Test Item Value Reference Range Interpretation Comments CHOLESTEROL (test code = 2210) 211 MG/DL TRIGLYCERIDES (test code = 2232) 209 MG/DL HDL CHOLESTEROL (test code = 2220) 38 MG/DL CALCULATED LDL CHOL (test code = 131 MG/DL 2237) RISK RATIO LDL/HDL (test code = 3.45 RATIO 2238) LIPID [id number] 00:00:00 Test Item Value Reference Range Interpretation Comments CHOLESTEROL (test code = 2210) 211 MG/DL TRIGLYCERIDES (test code = 2232) 209 MG/DL HDL CHOLESTEROL (test code = 2220) 38 MG/DL CALCULATED LDL CHOL (test code = 131 MG/DL 2237) RISK RATIO LDL/HDL (test code = 3.45 RATIO 2238) CBC W/AUTO [id number] 00:00:00 Test Item Value Reference Range Interpretation [...] code = 1015) 254 K/UL CBC W/AUTO [id number] 00:00:00 Test Item Value Reference Range Interpretation [...] code = 1015) 254 K/UL CBC W/AUTO [id number] 00:00:00 Test Item Value Reference Range Interpretation [...] (test code = 1015) 254 K/UL HEMOGLOBIN [id number] 00:00:00 Test Item Value Reference Range Interpretation Comments HEMOGLOBIN A1c (test code = 09536) 6.9 % HEMOGLOBIN [id number] 00:00:00 Test Item Value Reference Range Interpretation Comments HEMOGLOBIN A1c (test code = 60937) 6.9 % HEMOGLOBIN [id number] 00:00:00 Test Item Value Reference Range Interpretation Comments HEMOGLOBIN A1c (test code = 90310) 6.9 % [id number] 00:00:00 Test Item Value Reference Range Interpretation Comments TSH (test code = 2821) 0.5 UIU/ML [id number] 00:00:00 Test Item Value Reference Range Interpretation Comments TSH (test code = 2821) 0.5 UIU/ML [id number] 00:00:00 Test Item Value Reference Range Interpretation Comments TSH (test code = 2821) 0.5 UIU/ML HEPATITIS A IgM [REFLEX]2015-06-24 00:00:00 Test Item Value Reference Range Interpretation Comments HEPATITIS A IgM (test code = NON-REACTIVE 2728) CHLAMYDIA, AMPLIFIED, [id number] 00:00:00 Test Item Value Reference Range Interpretation Comments CHLAMYDIA, AMPLIFIED (test code = NEGATIVE 27665) CHLAMYDIA, AMPLIFIED, [id number] 00:00:00 Test Item Value Reference Range Interpretation Comments CHLAMYDIA, AMPLIFIED (test code = NEGATIVE 57340) GC, AMPLIFIED, [id number] 00:00:00 Test Item Value Reference Range Interpretation Comments GONORRHEA, AMPLIFIED (test code = NEGATIVE 87591) GC, AMPLIFIED, [id number] 00:00:00 Test Item Value Reference Range Interpretation Comments GONORRHEA, AMPLIFIED (test code = NEGATIVE 23514) HIV AB/AG COMBO RFLX [id number] 00:00:00 Test Item Value Reference Range Interpretation Comments HIV AB/AG COMBO RFLX CONF (test NON-REACTIVE code = 3514) HIV AB/AG COMBO RFLX [id number] 00:00:00 Test Item Value Reference Range Interpretation Comments HIV AB/AG COMBO RFLX CONF (test NON-REACTIVE code = 3514) [id number] 00:00:00 Test Item Value Reference Range Interpretation Comments RPR RESULT (test code = NON-REACTIVE 3501) RPR TITER (test code = 3500) NOT INDIC. TITER [id number] 00:00:00 Test Item Value Reference Range Interpretation Comments RPR RESULT (test code = NON-REACTIVE 3501) RPR TITER (test code = 3500) NOT INDIC. TITER [id number] 00:00:00 Test Item Value Reference Range Interpretation [...] INTERPRETATION HEPATITIS B: (NOTE) (test code = 96819) INTERPRETATION HEPATITIS C: (NOTE) (test code = 15022) HEPATITIS PROFILE (A,B,C)2015-06-24 00:00:00 Test Item Value [...] INTERPRETATION HEPATITIS B: (NOTE) (test code = 97806) INTERPRETATION HEPATITIS C: (NOTE) (test code = 30202) COMPREHENSIVE METABOLIC [id number] 00:00:00 Test Item Value Reference Range Interpretation Comments GLUCOSE (test code = 2217) 105 MG/DL BUN (test code = 2208) 11 MG/DL CREATININE (test code = 2214) 0.80 MG/DL eGFR AMER. (test code 109 ML/MIN/1.73 = 28318) eGFR NON- AMER. (test 94 ML/MIN/1.73 code = 78424) CALCULATED BUN/CREAT (test 14 RATIO code = [...] code = 2219) 14 U/L COMPREHENSIVE METABOLIC [id number] 00:00:00 Test Item Value Reference Range Interpretation Comments GLUCOSE (test code = 2217) 105 MG/DL BUN (test code = 2208) 11 MG/DL CREATININE (test code = 2214) 0.80 MG/DL eGFR AMER. (test code 109 ML/MIN/1.73 = 62869) eGFR NON- AMER. (test 94 ML/MIN/1.73 code = 57073) CALCULATED BUN/CREAT (test 14 RATIO code = [...] (test code = 2219) 14 U/L LIPID [id number] 00:00:00 Test Item Value Reference Range Interpretation Comments CHOLESTEROL (test code = 2210) 211 MG/DL TRIGLYCERIDES (test code = 2232) 209 MG/DL HDL CHOLESTEROL (test code = 2220) 38 MG/DL CALCULATED LDL CHOL (test code = 131 MG/DL 2237) RISK RATIO LDL/HDL (test code = 3.45 RATIO 2238) LIPID [id number] 00:00:00 Test Item Value Reference Range Interpretation Comments CHOLESTEROL (test code = 2210) 211 MG/DL TRIGLYCERIDES (test code = 2232) 209 MG/DL HDL CHOLESTEROL (test code = 2220) 38 MG/DL CALCULATED LDL CHOL (test code = 131 MG/DL 2237) RISK RATIO LDL/HDL (test code = 3.45 RATIO 2238) CBC W/AUTO [id number] 00:00:00 Test Item Value Reference Range Interpretation [...] code = 1015) 254 K/UL CBC W/AUTO [id number] 00:00:00 Test Item Value Reference Range Interpretation [...] code = 1015) 254 K/UL CBC W/AUTO [id number] 00:00:00 Test Item Value Reference Range Interpretation [...] (test code = 1015) 254 K/UL HEMOGLOBIN [id number] 00:00:00 Test Item Value Reference Range Interpretation Comments HEMOGLOBIN A1c (test code = 40616) 6.9 % HEMOGLOBIN [id number] 00:00:00 Test Item Value Reference Range Interpretation Comments HEMOGLOBIN A1c (test code = 63043) 6.9 % HEMOGLOBIN [id number] 00:00:00 Test Item Value Reference Range Interpretation Comments HEMOGLOBIN A1c (test code = 11293) 6.9 % [id number] 00:00:00 Test Item Value Reference Range Interpretation Comments TSH (test code = 2821) 0.5 UIU/ML [id number] 00:00:00 Test Item Value Reference Range Interpretation Comments TSH (test code = 2821) 0.5 UIU/ML [id number] 00:00:00 Test Item Value Reference Range Interpretation Comments TSH (test code = 2821) 0.5 UIU/ML HEPATITIS A IgM [REFLEX]2015-06-24 00:00:00 Test Item Value Reference Range Interpretation Comments HEPATITIS A IgM (test code = NON-REACTIVE 9223) CHLAMYDIA, AMPLIFIED, [id number] 00:00:00 Test Item Value Reference Range Interpretation Comments CHLAMYDIA, AMPLIFIED (test code = NEGATIVE 34676) CHLAMYDIA, AMPLIFIED, [id number] 00:00:00 Test Item Value Reference Range Interpretation Comments CHLAMYDIA, AMPLIFIED (test code = NEGATIVE 72394) GC, AMPLIFIED, [id number] 00:00:00 Test Item Value Reference Range Interpretation Comments GONORRHEA, AMPLIFIED (test code = NEGATIVE 58897) GC, AMPLIFIED, [id number] 00:00:00 Test Item Value Reference Range Interpretation Comments GONORRHEA, AMPLIFIED (test code = NEGATIVE 68108) HIV AB/AG COMBO RFLX [id number] 00:00:00 Test Item Value Reference Range Interpretation Comments HIV AB/AG COMBO RFLX CONF (test NON-REACTIVE code = 3514) HIV AB/AG COMBO RFLX [id number] 00:00:00 Test Item Value Reference Range Interpretation Comments HIV AB/AG COMBO RFLX CONF (test NON-REACTIVE code = 3514) [id number] 00:00:00 Test Item Value Reference Range Interpretation Comments RPR RESULT (test code = NON-REACTIVE 3501) RPR TITER (test code = 3500) NOT INDIC. TITER [id number] 00:00:00 Test Item Value Reference Range Interpretation Comments RPR RESULT (test code = NON-REACTIVE 3501) RPR TITER (test code = 3500) NOT INDIC. TITER [id number] 00:00:00 Test Item Value Reference Range Interpretation [...] INTERPRETATION HEPATITIS B: (NOTE) (test code = 93338) INTERPRETATION HEPATITIS C: (NOTE) (test code = 47376) HEPATITIS PROFILE (A,B,C)2015-06-24 00:00:00 Test Item Value [...] INTERPRETATION HEPATITIS B: (NOTE) (test code = 37034) INTERPRETATION HEPATITIS C: (NOTE) (test code = 98791) COMPREHENSIVE METABOLIC [id number] 00:00:00 Test Item Value Reference Range Interpretation Comments GLUCOSE (test code = 2217) 105 MG/DL BUN (test code = 2208) 11 MG/DL CREATININE (test code = 2214) 0.80 MG/DL eGFR AMER. (test code 109 ML/MIN/1.73 = 21649) eGFR NON- AMER. (test 94 ML/MIN/1.73 code = 37518) CALCULATED BUN/CREAT (test 14 RATIO code = [...] code = 2219) 14 U/L COMPREHENSIVE METABOLIC [id number] 00:00:00 Test Item Value Reference Range Interpretation Comments GLUCOSE (test code = 2217) 105 MG/DL BUN (test code = 2208) 11 MG/DL CREATININE (test code = 2214) 0.80 MG/DL eGFR AMER. (test code 109 ML/MIN/1.73 = 29103) eGFR NON- AMER. (test 94 ML/MIN/1.73 code = 54566) CALCULATED BUN/CREAT (test 14 RATIO code = [...] (test code = 2219) 14 U/L LIPID [id number] 00:00:00 Test Item Value Reference Range Interpretation Comments CHOLESTEROL (test code = 2210) 211 MG/DL TRIGLYCERIDES (test code = 2232) 209 MG/DL HDL CHOLESTEROL (test code = 2220) 38 MG/DL CALCULATED LDL CHOL (test code = 131 MG/DL 2237) RISK RATIO LDL/HDL (test code = 3.45 RATIO 2238) LIPID [id number] 00:00:00 Test Item Value Reference Range Interpretation Comments CHOLESTEROL (test code = 2210) 211 MG/DL TRIGLYCERIDES (test code = 2232) 209 MG/DL HDL CHOLESTEROL (test code = 2220) 38 MG/DL CALCULATED LDL CHOL (test code = 131 MG/DL 2237) RISK RATIO LDL/HDL (test code = 3.45 RATIO 2238) CBC W/AUTO [id number] 00:00:00 Test Item Value Reference Range Interpretation [...] code = 1015) 254 K/UL CBC W/AUTO [id number] 00:00:00 Test Item Value Reference Range Interpretation [...] code = 1015) 254 K/UL CBC W/AUTO [id number] 00:00:00 Test Item Value Reference Range Interpretation [...] (test code = 1015) 254 K/UL HEMOGLOBIN [id number] 00:00:00 Test Item Value Reference Range Interpretation Comments HEMOGLOBIN A1c (test code = 03084) 6.9 % HEMOGLOBIN [id number] 00:00:00 Test Item Value Reference Range Interpretation Comments HEMOGLOBIN A1c (test code = 91095) 6.9 % HEMOGLOBIN [id number] 00:00:00 Test Item Value Reference Range Interpretation Comments HEMOGLOBIN A1c (test code = 44487) 6.9 % [id number] 00:00:00 Test Item Value Reference Range Interpretation Comments TSH (test code = 2821) 0.5 UIU/ML [id number] 00:00:00 Test Item Value Reference Range Interpretation Comments TSH (test code = 2821) 0.5 UIU/ML [id number] 00:00:00 Test Item Value Reference Range Interpretation Comments TSH (test code = 2821) 0.5 UIU/ML HEPATITIS A IgM [REFLEX]2015-06-24 00:00:00 Test Item Value Reference Range Interpretation Comments HEPATITIS A IgM (test code = NON-REACTIVE 2728) CHLAMYDIA, AMPLIFIED, [id number] 00:00:00 Test Item Value Reference Range Interpretation Comments CHLAMYDIA, AMPLIFIED (test code = NEGATIVE 12574) GC, AMPLIFIED, [id number] 00:00:00 Test Item Value Reference Range Interpretation Comments GONORRHEA, AMPLIFIED (test code = NEGATIVE 53662) HIV AB/AG COMBO RFLX [id number] 00:00:00 Test Item Value Reference Range Interpretation Comments HIV AB/AG COMBO RFLX CONF (test NON-REACTIVE code = 3514) [id number] 00:00:00 Test Item Value Reference Range Interpretation Comments RPR RESULT (test code = NON-REACTIVE 3501) RPR TITER (test code = 3500) NOT INDIC. TITER CHLAMYDIA, AMPLIFIED, [id number] 00:00:00 Test Item Value Reference Range Interpretation Comments CHLAMYDIA, AMPLIFIED (test code = NEGATIVE 94579) [id number] 00:00:00 Test Item Value Reference Range Interpretation Comments RPR RESULT (test code = NON-REACTIVE 3501) RPR TITER (test code = 3500) NOT INDIC. TITER CHLAMYDIA, AMPLIFIED, [id number] 00:00:00 Test Item Value Reference Range Interpretation Comments CHLAMYDIA, AMPLIFIED (test code = NEGATIVE 38090) GC, AMPLIFIED, [id number] 00:00:00 Test Item Value Reference Range Interpretation Comments GONORRHEA, AMPLIFIED (test code = NEGATIVE 14586) GC, AMPLIFIED, [id number] 00:00:00 Test Item Value Reference Range Interpretation Comments GONORRHEA, AMPLIFIED (test code = NEGATIVE 42805) HIV AB/AG COMBO RFLX [id number] 00:00:00 Test Item Value Reference Range Interpretation Comments HIV AB/AG COMBO RFLX CONF (test NON-REACTIVE code = 3514) HIV AB/AG COMBO RFLX [id number] 00:00:00 Test Item Value Reference Range Interpretation Comments HIV AB/AG COMBO RFLX CONF (test NON-REACTIVE code = 3514) [id number] 00:00:00 Test Item Value Reference Range Interpretation Comments RPR RESULT (test code = NON-REACTIVE 3501) RPR TITER (test code = 3500) NOT INDIC. TITER [id number] 00:00:00 Test Item Value Reference Range Interpretation Comments RPR RESULT (test code = NON-REACTIVE 3501) RPR TITER (test code = 3500) NOT INDIC. TITER [id number] 00:00:00 Test Item Value Reference Range Interpretation [...] INTERPRETATION HEPATITIS B: (NOTE) (test code = 03747) INTERPRETATION HEPATITIS C: (NOTE) (test code = 28644) HEPATITIS PROFILE (A,B,C)2015-06-24 00:00:00 Test Item Value [...] INTERPRETATION HEPATITIS B: (NOTE) (test code = 39979) INTERPRETATION HEPATITIS C: (NOTE) (test code = 02289) HEPATITIS PROFILE (A,B,C)2015-06-24 00:00:00 Test Item Value [...] INTERPRETATION HEPATITIS B: (NOTE) (test code = 94102) INTERPRETATION HEPATITIS C: (NOTE) (test code = 60741) COMPREHENSIVE METABOLIC [id number] 00:00:00 Test Item Value Reference Range Interpretation Comments GLUCOSE (test code = 2217) 105 MG/DL BUN (test code = 2208) 11 MG/DL CREATININE (test code = 2214) 0.80 MG/DL eGFR AMER. (test code 109 ML/MIN/1.73 = 11584) eGFR NON- AMER. (test 94 ML/MIN/1.73 code = 51461) CALCULATED BUN/CREAT (test 14 RATIO code = [...] code = 2219) 14 U/L COMPREHENSIVE METABOLIC [id number] 00:00:00 Test Item Value Reference Range Interpretation Comments GLUCOSE (test code = 2217) 105 MG/DL BUN (test code = 2208) 11 MG/DL CREATININE (test code = 2214) 0.80 MG/DL eGFR AMER. (test code 109 ML/MIN/1.73 = 18534) eGFR NON- AMER. (test 94 ML/MIN/1.73 code = 92088) CALCULATED BUN/CREAT (test 14 RATIO code = [...] (test code = 2219) 14 U/L LIPID [id number] 00:00:00 Test Item Value Reference Range Interpretation Comments CHOLESTEROL (test code = 2210) 211 MG/DL TRIGLYCERIDES (test code = 2232) 209 MG/DL HDL CHOLESTEROL (test code = 2220) 38 MG/DL CALCULATED LDL CHOL (test code = 131 MG/DL 2237) RISK RATIO LDL/HDL (test code = 3.45 RATIO 2238) LIPID [id number] 00:00:00 Test Item Value Reference Range Interpretation Comments CHOLESTEROL (test code = 2210) 211 MG/DL TRIGLYCERIDES (test code = 2232) 209 MG/DL HDL CHOLESTEROL (test code = 2220) 38 MG/DL CALCULATED LDL CHOL (test code = 131 MG/DL 2237) RISK RATIO LDL/HDL (test code = 3.45 RATIO 2238) CBC W/AUTO [id number] 00:00:00 Test Item Value Reference Range Interpretation [...] code = 1015) 254 K/UL CBC W/AUTO [id number] 00:00:00 Test Item Value Reference Range Interpretation [...] code = 1015) 254 K/UL CBC W/AUTO [id number] 00:00:00 Test Item Value Reference Range Interpretation [...] (test code = 1015) 254 K/UL HEMOGLOBIN [id number] 00:00:00 Test Item Value Reference Range Interpretation Comments HEMOGLOBIN A1c (test code = 85332) 6.9 % HEMOGLOBIN [id number] 00:00:00 Test Item Value Reference Range Interpretation Comments HEMOGLOBIN A1c (test code = 99792) 6.9 % HEMOGLOBIN [id number] 00:00:00 Test Item Value Reference Range Interpretation Comments HEMOGLOBIN A1c (test code = 51495) 6.9 % [id number] 00:00:00 Test Item Value Reference Range Interpretation Comments TSH (test code = 2821) 0.5 UIU/ML [id number] 00:00:00 Test Item Value Reference Range Interpretation Comments TSH (test code = 2821) 0.5 UIU/ML [id number] 00:00:00 Test Item Value Reference Range Interpretation Comments TSH (test code = 2821) 0.5 UIU/ML HEPATITIS A IgM [REFLEX]2015-06-24 00:00:00 Test Item Value Reference Range Interpretation Comments HEPATITIS A IgM (test code = NON-REACTIVE 4) COMPREHENSIVE METABOLIC [id number] 00:00:00 Test Item Value Reference Range Interpretation Comments GLUCOSE (test code = 2217) 105 MG/DL BUN (test code = 2208) 11 MG/DL CREATININE (test code = 2214) 0.80 MG/DL eGFR AMER. (test code 109 ML/MIN/1.73 = 83459) eGFR NON- AMER. (test 94 ML/MIN/1.73 code = 89552) CALCULATED BUN/CREAT (test 14 RATIO code = [...] (test code = 2219) 14 U/L LIPID [id number] 00:00:00 Test Item Value Reference Range Interpretation Comments CHOLESTEROL (test code = 2210) 211 MG/DL TRIGLYCERIDES (test code = 2232) 209 MG/DL HDL CHOLESTEROL (test code = 2220) 38 MG/DL CALCULATED LDL CHOL (test code = 131 MG/DL 2237) RISK RATIO LDL/HDL (test code = 3.45 RATIO 2238) CBC W/AUTO [id number] 00:00:00 Test Item Value Reference Range Interpretation [...] code = 1015) 254 K/UL CBC W/AUTO [id number] 00:00:00 Test Item Value Reference Range Interpretation [...] (test code = 1015) 254 K/UL HEMOGLOBIN [id number] 00:00:00 Test Item Value Reference Range Interpretation Comments HEMOGLOBIN A1c (test code = 72512) 6.9 % HEMOGLOBIN [id number] 00:00:00 Test Item Value Reference Range Interpretation Comments HEMOGLOBIN A1c (test code = 25418) 6.9 % [id number] 00:00:00 Test Item Value Reference Range Interpretation Comments TSH (test code = 2821) 0.5 UIU/ML [id number] 00:00:00 Test Item Value Reference Range Interpretation Comments TSH (test code = 2821) 0.5 UIU/ML HEPATITIS A IgM [REFLEX]2015-06-24 00:00:00 Test Item Value Reference Range Interpretation Comments HEPATITIS A IgM (test code = NON-REACTIVE 2728) CHLAMYDIA, AMPLIFIED, [id number] 00:00:00 Test Item Value Reference Range Interpretation Comments CHLAMYDIA, AMPLIFIED (test code = NEGATIVE 55162) CHLAMYDIA, AMPLIFIED, [id number] 00:00:00 Test Item Value Reference Range Interpretation Comments CHLAMYDIA, AMPLIFIED (test code = NEGATIVE 32955) GC, AMPLIFIED, [id number] 00:00:00 Test Item Value Reference Range Interpretation Comments GONORRHEA, AMPLIFIED (test code = NEGATIVE 69961) GC, AMPLIFIED, [id number] 00:00:00 Test Item Value Reference Range Interpretation Comments GONORRHEA, AMPLIFIED (test code = NEGATIVE 86550) HIV AB/AG COMBO RFLX [id number] 00:00:00 Test Item Value Reference Range Interpretation Comments HIV AB/AG COMBO RFLX CONF (test NON-REACTIVE code = 3514) HIV AB/AG COMBO RFLX [id number] 00:00:00 Test Item Value Reference Range Interpretation Comments HIV AB/AG COMBO RFLX CONF (test NON-REACTIVE code = 3514) [id number] 00:00:00 Test Item Value Reference Range Interpretation Comments RPR RESULT (test code = NON-REACTIVE 3501) RPR TITER (test code = 3500) NOT INDIC. TITER [id number] 00:00:00 Test Item Value Reference Range Interpretation Comments RPR RESULT (test code = NON-REACTIVE 3501) RPR TITER (test code = 3500) NOT INDIC. TITER [id number] 00:00:00 Test Item Value Reference Range Interpretation [...] INTERPRETATION HEPATITIS B: (NOTE) (test code = 85831) INTERPRETATION HEPATITIS C: (NOTE) (test code = 79084) HEPATITIS PROFILE (A,B,C)2015-06-24 00:00:00 Test Item Value [...] INTERPRETATION HEPATITIS B: (NOTE) (test code = 67300) INTERPRETATION HEPATITIS C: (NOTE) (test code = 29996) COMPREHENSIVE METABOLIC [id number] 00:00:00 Test Item Value Reference Range Interpretation Comments GLUCOSE (test code = 2217) 105 MG/DL BUN (test code = 2208) 11 MG/DL CREATININE (test code = 2214) 0.80 MG/DL eGFR AMER. (test code 109 ML/MIN/1.73 = 91586) eGFR NON- AMER. (test 94 ML/MIN/1.73 code = 26771) CALCULATED BUN/CREAT (test 14 RATIO code = [...] code = 2219) 14 U/L COMPREHENSIVE METABOLIC [id number] 00:00:00 Test Item Value Reference Range Interpretation Comments GLUCOSE (test code = 2217) 105 MG/DL BUN (test code = 2208) 11 MG/DL CREATININE (test code = 2214) 0.80 MG/DL eGFR AMER. (test code 109 ML/MIN/1.73 = 56216) eGFR NON- AMER. (test 94 ML/MIN/1.73 code = 53031) CALCULATED BUN/CREAT (test 14 RATIO code = [...] (test code = 2219) 14 U/L LIPID [id number] 00:00:00 Test Item Value Reference Range Interpretation Comments CHOLESTEROL (test code = 2210) 211 MG/DL TRIGLYCERIDES (test code = 2232) 209 MG/DL HDL CHOLESTEROL (test code = 2220) 38 MG/DL CALCULATED LDL CHOL (test code = 131 MG/DL 2236) RISK RATIO LDL/HDL (test code = 3.45 RATIO 2238) LIPID [id number] 00:00:00 Test Item Value Reference Range Interpretation Comments CHOLESTEROL (test code = 2210) 211 MG/DL TRIGLYCERIDES (test code = 2232) 209 MG/DL HDL CHOLESTEROL (test code = 2220) 38 MG/DL CALCULATED LDL CHOL (test code = 131 MG/DL 2236) RISK RATIO LDL/HDL (test code = 3.45 RATIO 2238) CBC W/AUTO [id number] 00:00:00 Test Item Value Reference Range Interpretation [...] code = 1015) 254 K/UL CBC W/AUTO [id number] 00:00:00 Test Item Value Reference Range Interpretation [...] code = 1015) 254 K/UL CBC W/AUTO [id number] 00:00:00 Test Item Value Reference Range Interpretation [...] (test code = 1015) 254 K/UL HEMOGLOBIN [id number] 00:00:00 Test Item Value Reference Range Interpretation Comments HEMOGLOBIN A1c (test code = 74774) 6.9 % HEMOGLOBIN [id number] 00:00:00 Test Item Value Reference Range Interpretation Comments HEMOGLOBIN A1c (test code = 31231) 6.9 % HEMOGLOBIN [id number] 00:00:00 Test Item Value Reference Range Interpretation Comments HEMOGLOBIN A1c (test code = 77817) 6.9 % [id number] 00:00:00 Test Item Value Reference Range Interpretation Comments TSH (test code = 2821) 0.5 UIU/ML [id number] 00:00:00 Test Item Value Reference Range Interpretation Comments TSH (test code = 2821) 0.5 UIU/ML [id number] 00:00:00 Test Item Value Reference Range Interpretation Comments TSH (test code = 2821) 0.5 UIU/ML HEPATITIS A IgM [REFLEX]2015-06-24 00:00:00 Test Item Value Reference Range Interpretation Comments HEPATITIS A IgM (test code = NON-REACTIVE 2728) CHLAMYDIA, AMPLIFIED, [id number] 00:00:00 Test Item Value Reference Range Interpretation Comments CHLAMYDIA, AMPLIFIED (test code = NEGATIVE 37618) CHLAMYDIA, AMPLIFIED, [id number] 00:00:00 Test Item Value Reference Range Interpretation Comments CHLAMYDIA, AMPLIFIED (test code = NEGATIVE 38102) GC, AMPLIFIED, [id number] 00:00:00 Test Item Value Reference Range Interpretation Comments GONORRHEA, AMPLIFIED (test code = NEGATIVE 92753) GC, AMPLIFIED, [id number] 00:00:00 Test Item Value Reference Range Interpretation Comments GONORRHEA, AMPLIFIED (test code = NEGATIVE 71637) HIV AB/AG COMBO RFLX [id number] 00:00:00 Test Item Value Reference Range Interpretation Comments HIV AB/AG COMBO RFLX CONF (test NON-REACTIVE code = 3514) HIV AB/AG COMBO RFLX [id number] 00:00:00 Test Item Value Reference Range Interpretation Comments HIV AB/AG COMBO RFLX CONF (test NON-REACTIVE code = 3514) [id number] 00:00:00 Test Item Value Reference Range Interpretation Comments RPR RESULT (test code = NON-REACTIVE 3501) RPR TITER (test code = 3500) NOT INDIC. TITER [id number] 00:00:00 Test Item Value Reference Range Interpretation Comments RPR RESULT (test code = NON-REACTIVE 3501) RPR TITER (test code = 3500) NOT INDIC. TITER [id number] 00:00:00 Test Item Value Reference Range Interpretation Comments RPR RESULT (test code = NON-REACTIVE 3501) RPR TITER (test code = 3500) NOT INDIC. TITER HEPATITIS PROFILE (A,B,C)2015-06-24 00:00:00 Test Item Value Reference Range Interpretation Comments HEPATITIS A TOTAL AB (test code REACTIVE = 2725) HEPATITIS B SURF AG (test code = NON-REACTIVE 273) HEP B CORE TOTAL AB (test code = NON-REACTIVE 2729) HEPATITIS B SURFACE AB (test NON-REACTIVE code = 2737) HEPATITIS C ANTIBODY (test code NON-REACTIVE = 4675) INTERPRETATION HEPATITIS A: (NOTE) (test code = 2552) INTERPRETATION HEPATITIS B: (NOTE) (test code = 47537) INTERPRETATION HEPATITIS C: (NOTE) (test code = 12861) HEPATITIS PROFILE (A,B,C)2015-06-24 00:00:00 Test Item Value [...] INTERPRETATION HEPATITIS B: (NOTE) (test code = 42628) INTERPRETATION HEPATITIS C: (NOTE) (test code = 08603) COMPREHENSIVE METABOLIC [id number] 00:00:00 Test Item Value Reference Range Interpretation Comments GLUCOSE (test code = 2217) 105 MG/DL BUN (test code = 2208) 11 MG/DL CREATININE (test code = 2214) 0.80 MG/DL eGFR AMER. (test code 109 ML/MIN/1.73 = 41528) eGFR NON- AMER. (test 94 ML/MIN/1.73 code = 06645) CALCULATED BUN/CREAT (test 14 RATIO code = [...] code = 2219) 14 U/L COMPREHENSIVE METABOLIC [id number] 00:00:00 Test Item Value Reference Range Interpretation Comments GLUCOSE (test code = 2217) 105 MG/DL BUN (test code = 2208) 11 MG/DL CREATININE (test code = 2214) 0.80 MG/DL eGFR AMER. (test code 109 ML/MIN/1.73 = 30716) eGFR NON- AMER. (test 94 ML/MIN/1.73 code = 22108) CALCULATED BUN/CREAT (test 14 RATIO code = [...] (test code = 2219) 14 U/L LIPID [id number] 00:00:00 Test Item Value Reference Range Interpretation Comments CHOLESTEROL (test code = 2210) 211 MG/DL TRIGLYCERIDES (test code = 2232) 209 MG/DL HDL CHOLESTEROL (test code = 2220) 38 MG/DL CALCULATED LDL CHOL (test code = 131 MG/DL 2237) RISK RATIO LDL/HDL (test code = 3.45 RATIO 2238) LIPID [id number] 00:00:00 Test Item Value Reference Range Interpretation Comments CHOLESTEROL (test code = 2210) 211 MG/DL TRIGLYCERIDES (test code = 2232) 209 MG/DL HDL CHOLESTEROL (test code = 2220) 38 MG/DL CALCULATED LDL CHOL (test code = 131 MG/DL 2237) RISK RATIO LDL/HDL (test code = 3.45 RATIO 2238) CBC W/AUTO [id number] 00:00:00 Test Item Value Reference Range Interpretation [...] code = 1015) 254 K/UL CBC W/AUTO [id number] 00:00:00 Test Item Value Reference Range Interpretation [...] code = 1015) 254 K/UL CBC W/AUTO [id number] 00:00:00 Test Item Value Reference Range Interpretation [...] (test code = 1015) 254 K/UL HEMOGLOBIN [id number] 00:00:00 Test Item Value Reference Range Interpretation Comments HEMOGLOBIN A1c (test code = 70935) 6.9 % HEMOGLOBIN [id number] 00:00:00 Test Item Value Reference Range Interpretation Comments HEMOGLOBIN A1c (test code = 81236) 6.9 % HEMOGLOBIN [id number] 00:00:00 Test Item Value Reference Range Interpretation Comments HEMOGLOBIN A1c (test code = 75028) 6.9 % [id number] 00:00:00 Test Item Value Reference Range Interpretation Comments TSH (test code = 2821) 0.5 UIU/ML [id number] 00:00:00 Test Item Value Reference Range Interpretation Comments TSH (test code = 2821) 0.5 UIU/ML [id number] 00:00:00 Test Item Value Reference Range Interpretation Comments TSH (test code = 2821) 0.5 UIU/ML HEPATITIS A IgM [REFLEX]2015-06-24 00:00:00 Test Item Value Reference Range Interpretation Comments HEPATITIS A IgM (test code = NON-REACTIVE 4) COMPREHENSIVE METABOLIC [id number] 00:00:00 Test Item Value Reference Range Interpretation Comments GLUCOSE (test code = 2217) 113 MG/DL BUN (test code = 2208) 22 MG/DL CREATININE (test code = 2214) 0.9 MG/DL eGFR AMER. (test code 85 ML/MIN/1.73 = 67946) eGFR NON- AMER. (test 70 ML/MIN/1.73 code = 48832) CALCULATED BUN/CREAT (test 24 RATIO code = [...] code = 2219) 24 U/L COMPREHENSIVE METABOLIC [id number] 00:00:00 Test Item Value Reference Range Interpretation Comments GLUCOSE (test code = 2217) 113 MG/DL BUN (test code = 2208) 22 MG/DL CREATININE (test code = 2214) 0.9 MG/DL eGFR AMER. (test code 85 ML/MIN/1.73 = 67460) eGFR NON- AMER. (test 70 ML/MIN/1.73 code = 14604) CALCULATED BUN/CREAT (test 24 RATIO code = [...] code = 2219) 24 U/L CBC W/AUTO [id number] 00:00:00 Test Item Value Reference Range Interpretation [...] code = 1015) 270 K/UL CBC W/AUTO [id number] 00:00:00 Test Item Value Reference Range Interpretation [...] code = 1015) 270 K/UL CBC W/AUTO [id number] 00:00:00 Test Item Value Reference Range Interpretation [...] (test code = 1015) 270 K/UL HEMOGLOBIN [id number] 00:00:00 Test Item Value Reference Range Interpretation Comments HEMOGLOBIN A1c (test code = 23824) 7.3 % HEMOGLOBIN [id number] 00:00:00 Test Item Value Reference Range Interpretation Comments HEMOGLOBIN A1c (test code = 80719) 7.3 % HEMOGLOBIN [id number] 00:00:00 Test Item Value Reference Range Interpretation Comments HEMOGLOBIN A1c (test code = 95398) 7.3 % COMPREHENSIVE METABOLIC [id number] 00:00:00 Test Item Value Reference Range Interpretation Comments GLUCOSE (test code = 2217) 113 MG/DL BUN (test code = 2208) 22 MG/DL CREATININE (test code = 2214) 0.9 MG/DL eGFR AMER. (test code 85 ML/MIN/1.73 = 20702) eGFR NON- AMER. (test 70 ML/MIN/1.73 code = 57839) CALCULATED BUN/CREAT (test 24 RATIO code = [...] code = 2219) 24 U/L COMPREHENSIVE METABOLIC [id number] 00:00:00 Test Item Value Reference Range Interpretation Comments GLUCOSE (test code = 2217) 113 MG/DL BUN (test code = 2208) 22 MG/DL CREATININE (test code = 2214) 0.9 MG/DL eGFR AMER. (test code 85 ML/MIN/1.73 = 80763) eGFR NON- AMER. (test 70 ML/MIN/1.73 code = 75656) CALCULATED BUN/CREAT (test 24 RATIO code = [...] code = 2219) 24 U/L CBC W/AUTO [id number] 00:00:00 Test Item Value Reference Range Interpretation [...] code = 1015) 270 K/UL CBC W/AUTO [id number] 00:00:00 Test Item Value Reference Range Interpretation [...] code = 1015) 270 K/UL CBC W/AUTO [id number] 00:00:00 Test Item Value Reference Range Interpretation [...] (test code = 1015) 270 K/UL HEMOGLOBIN [id number] 00:00:00 Test Item Value Reference Range Interpretation Comments HEMOGLOBIN A1c (test code = 11182) 7.3 % HEMOGLOBIN [id number] 00:00:00 Test Item Value Reference Range Interpretation Comments HEMOGLOBIN A1c (test code = 57765) 7.3 % HEMOGLOBIN [id number] 00:00:00 Test Item Value Reference Range Interpretation Comments HEMOGLOBIN A1c (test code = 62490) 7.3 % COMPREHENSIVE METABOLIC [id number] 00:00:00 Test Item Value Reference Range Interpretation Comments GLUCOSE (test code = 2217) 113 MG/DL BUN (test code = 2208) 22 MG/DL CREATININE (test code = 2214) 0.9 MG/DL eGFR AMER. (test code 85 ML/MIN/1.73 = 89572) eGFR NON- AMER. (test 70 ML/MIN/1.73 code = 56954) CALCULATED BUN/CREAT (test 24 RATIO code = [...] code = 2219) 24 U/L COMPREHENSIVE METABOLIC [id number] 00:00:00 Test Item Value Reference Range Interpretation Comments GLUCOSE (test code = 2217) 113 MG/DL BUN (test code = 2208) 22 MG/DL CREATININE (test code = 2214) 0.9 MG/DL eGFR AMER. (test code 85 ML/MIN/1.73 = 54283) eGFR NON- AMER. (test 70 ML/MIN/1.73 code = 55148) CALCULATED BUN/CREAT (test 24 RATIO code = [...] code = 2219) 24 U/L CBC W/AUTO [id number] 00:00:00 Test Item Value Reference Range Interpretation [...] code = 1015) 270 K/UL CBC W/AUTO [id number] 00:00:00 Test Item Value Reference Range Interpretation [...] code = 1015) 270 K/UL CBC W/AUTO [id number] 00:00:00 Test Item Value Reference Range Interpretation [...] (test code = 1015) 270 K/UL HEMOGLOBIN [id number] 00:00:00 Test Item Value Reference Range Interpretation Comments HEMOGLOBIN A1c (test code = 89723) 7.3 % HEMOGLOBIN [id number] 00:00:00 Test Item Value Reference Range Interpretation Comments HEMOGLOBIN A1c (test code = 53135) 7.3 % HEMOGLOBIN [id number] 00:00:00 Test Item Value Reference Range Interpretation Comments HEMOGLOBIN A1c (test code = 10510) 7.3 % COMPREHENSIVE METABOLIC [id number] 00:00:00 Test Item Value Reference Range Interpretation Comments GLUCOSE (test code = 2217) 113 MG/DL BUN (test code = 2208) 22 MG/DL CREATININE (test code = 2214) 0.9 MG/DL eGFR AMER. (test code 85 ML/MIN/1.73 = 70714) eGFR NON- AMER. (test 70 ML/MIN/1.73 code = 93833) CALCULATED BUN/CREAT (test 24 RATIO code = [...] code = 2219) 24 U/L COMPREHENSIVE METABOLIC [id number] 00:00:00 Test Item Value Reference Range Interpretation Comments GLUCOSE (test code = 2217) 113 MG/DL BUN (test code = 2208) 22 MG/DL CREATININE (test code = 2214) 0.9 MG/DL eGFR AMER. (test code 85 ML/MIN/1.73 = 96840) eGFR NON- AMER. (test 70 ML/MIN/1.73 code = 89961) CALCULATED BUN/CREAT (test 24 RATIO code = [...] code = 2219) 24 U/L CBC W/AUTO [id number] 00:00:00 Test Item Value Reference Range Interpretation [...] code = 1015) 270 K/UL CBC W/AUTO [id number] 00:00:00 Test Item Value Reference Range Interpretation [...] code = 1015) 270 K/UL CBC W/AUTO [id number] 00:00:00 Test Item Value Reference Range Interpretation [...] (test code = 1015) 270 K/UL HEMOGLOBIN [id number] 00:00:00 Test Item Value Reference Range Interpretation Comments HEMOGLOBIN A1c (test code = 52248) 7.3 % HEMOGLOBIN [id number] 00:00:00 Test Item Value Reference Range Interpretation Comments HEMOGLOBIN A1c (test code = 49546) 7.3 % HEMOGLOBIN [id number] 00:00:00 Test Item Value Reference Range Interpretation Comments HEMOGLOBIN A1c (test code = 68028) 7.3 % COMPREHENSIVE METABOLIC [id number] 00:00:00 Test Item Value Reference Range Interpretation Comments GLUCOSE (test code = 2217) 113 MG/DL BUN (test code = 2208) 22 MG/DL CREATININE (test code = 2214) 0.9 MG/DL eGFR AMER. (test code 85 ML/MIN/1.73 = 41702) eGFR NON- AMER. (test 70 ML/MIN/1.73 code = 88573) CALCULATED BUN/CREAT (test 24 RATIO code = [...] code = 2219) 24 U/L COMPREHENSIVE METABOLIC [id number] 00:00:00 Test Item Value Reference Range Interpretation Comments GLUCOSE (test code = 2217) 113 MG/DL BUN (test code = 2208) 22 MG/DL CREATININE (test code = 2214) 0.9 MG/DL eGFR AMER. (test code 85 ML/MIN/1.73 = 36122) eGFR NON- AMER. (test 70 ML/MIN/1.73 code = 67818) CALCULATED BUN/CREAT (test 24 RATIO code = [...] code = 2219) 24 U/L CBC W/AUTO [id number] 00:00:00 Test Item Value Reference Range Interpretation [...] code = 1015) 270 K/UL CBC W/AUTO [id number] 00:00:00 Test Item Value Reference Range Interpretation [...] code = 1015) 270 K/UL CBC W/AUTO [id number] 00:00:00 Test Item Value Reference Range Interpretation [...] (test code = 1015) 270 K/UL HEMOGLOBIN [id number] 00:00:00 Test Item Value Reference Range Interpretation Comments HEMOGLOBIN A1c (test code = 54118) 7.3 % HEMOGLOBIN [id number] 00:00:00 Test Item Value Reference Range Interpretation Comments HEMOGLOBIN A1c (test code = 27050) 7.3 % HEMOGLOBIN [id number] 00:00:00 Test Item Value Reference Range Interpretation Comments HEMOGLOBIN A1c (test code = 78078) 7.3 % COMPREHENSIVE METABOLIC [id number] 00:00:00 Test Item Value Reference Range Interpretation Comments GLUCOSE (test code = 2217) 113 MG/DL BUN (test code = 2208) 22 MG/DL CREATININE (test code = 2214) 0.9 MG/DL eGFR AMER. (test code 85 ML/MIN/1.73 = 04533) eGFR NON- AMER. (test 70 ML/MIN/1.73 code = 57625) CALCULATED BUN/CREAT (test 24 RATIO code = [...] code = 2219) 24 U/L COMPREHENSIVE METABOLIC [id number] 00:00:00 Test Item Value Reference Range Interpretation Comments GLUCOSE (test code = 2217) 113 MG/DL BUN (test code = 2208) 22 MG/DL CREATININE (test code = 2214) 0.9 MG/DL eGFR AMER. (test code 85 ML/MIN/1.73 = 26937) eGFR NON- AMER. (test 70 ML/MIN/1.73 code = 14903) CALCULATED BUN/CREAT (test 24 RATIO code = [...] code = 2219) 24 U/L CBC W/AUTO [id number] 00:00:00 Test Item Value Reference Range Interpretation [...] code = 1015) 270 K/UL CBC W/AUTO [id number] 00:00:00 Test Item Value Reference Range Interpretation [...] code = 1015) 270 K/UL CBC W/AUTO [id number] 00:00:00 Test Item Value Reference Range Interpretation [...] (test code = 1015) 270 K/UL HEMOGLOBIN [id number] 00:00:00 Test Item Value Reference Range Interpretation Comments HEMOGLOBIN A1c (test code = 49672) 7.3 % HEMOGLOBIN [id number] 00:00:00 Test Item Value Reference Range Interpretation Comments HEMOGLOBIN A1c (test code = 04116) 7.3 % HEMOGLOBIN [id number] 00:00:00 Test Item Value Reference Range Interpretation Comments HEMOGLOBIN A1c (test code = 74905) 7.3 % COMPREHENSIVE METABOLIC [id number] 00:00:00 Test Item Value Reference Range Interpretation Comments GLUCOSE (test code = 2217) 113 MG/DL BUN (test code = 2208) 22 MG/DL CREATININE (test code = 2214) 0.9 MG/DL eGFR AMER. (test code 85 ML/MIN/1.73 = 72336) eGFR NON- AMER. (test 70 ML/MIN/1.73 code = 21403) CALCULATED BUN/CREAT (test 24 RATIO code = [...] code = 2219) 24 U/L COMPREHENSIVE METABOLIC [id number] 00:00:00 Test Item Value Reference Range Interpretation Comments GLUCOSE (test code = 2217) 113 MG/DL BUN (test code = 2208) 22 MG/DL CREATININE (test code = 2214) 0.9 MG/DL eGFR AMER. (test code 85 ML/MIN/1.73 = 22702) eGFR NON- AMER. (test 70 ML/MIN/1.73 code = 86332) CALCULATED BUN/CREAT (test 24 RATIO code = [...] code = 2219) 24 U/L CBC W/AUTO [id number] 00:00:00 Test Item Value Reference Range Interpretation [...] code = 1015) 270 K/UL CBC W/AUTO [id number] 00:00:00 Test Item Value Reference Range Interpretation [...] code = 1015) 270 K/UL CBC W/AUTO [id number] 00:00:00 Test Item Value Reference Range Interpretation [...] (test code = 1015) 270 K/UL HEMOGLOBIN [id number] 00:00:00 Test Item Value Reference Range Interpretation Comments HEMOGLOBIN A1c (test code = 77255) 7.3 % HEMOGLOBIN [id number] 00:00:00 Test Item Value Reference Range Interpretation Comments HEMOGLOBIN A1c (test code = 33381) 7.3 % HEMOGLOBIN [id number] 00:00:00 Test Item Value Reference Range Interpretation Comments HEMOGLOBIN A1c (test code = 94919) 7.3 % COMPREHENSIVE METABOLIC [id number] 00:00:00 Test Item Value Reference Range Interpretation Comments GLUCOSE (test code = 2217) 113 MG/DL BUN (test code = 2208) 22 MG/DL CREATININE (test code = 2214) 0.9 MG/DL eGFR AMER. (test code 85 ML/MIN/1.73 = 95598) eGFR NON- AMER. (test 70 ML/MIN/1.73 code = 87714) CALCULATED BUN/CREAT (test 24 RATIO code = [...] code = 2219) 24 U/L CBC W/AUTO [id number] 00:00:00 Test Item Value Reference Range Interpretation [...] code = 1015) 270 K/UL CBC W/AUTO [id number] 00:00:00 Test Item Value Reference Range Interpretation [...] (test code = 1015) 270 K/UL HEMOGLOBIN [id number] 00:00:00 Test Item Value Reference Range Interpretation Comments HEMOGLOBIN A1c (test code = 38079) 7.3 % HEMOGLOBIN [id number] 00:00:00 Test Item Value Reference Range Interpretation Comments HEMOGLOBIN A1c (test code = 11771) 7.3 % COMPREHENSIVE METABOLIC [id number] 00:00:00 Test Item Value Reference Range Interpretation Comments GLUCOSE (test code = 2217) 113 MG/DL BUN (test code = 2208) 22 MG/DL CREATININE (test code = 2214) 0.9 MG/DL eGFR AMER. (test code 85 ML/MIN/1.73 = 65707) eGFR NON- AMER. (test 70 ML/MIN/1.73 code = 70619) CALCULATED BUN/CREAT (test 24 RATIO code = [...] code = 2219) 24 U/L COMPREHENSIVE METABOLIC [id number] 00:00:00 Test Item Value Reference Range Interpretation Comments GLUCOSE (test code = 2217) 113 MG/DL BUN (test code = 2208) 22 MG/DL CREATININE (test code = 2214) 0.9 MG/DL eGFR AMER. (test code 85 ML/MIN/1.73 = 02387) eGFR NON- AMER. (test 70 ML/MIN/1.73 code = 78779) CALCULATED BUN/CREAT (test 24 RATIO code = [...] code = 2219) 24 U/L CBC W/AUTO [id number] 00:00:00 Test Item Value Reference Range Interpretation [...] code = 1015) 270 K/UL CBC W/AUTO [id number] 00:00:00 Test Item Value Reference Range Interpretation [...] code = 1015) 270 K/UL CBC W/AUTO [id number] 00:00:00 Test Item Value Reference Range Interpretation [...] (test code = 1015) 270 K/UL HEMOGLOBIN [id number] 00:00:00 Test Item Value Reference Range Interpretation Comments HEMOGLOBIN A1c (test code = 25040) 7.3 % HEMOGLOBIN [id number] 00:00:00 Test Item Value Reference Range Interpretation Comments HEMOGLOBIN A1c (test code = 96205) 7.3 % HEMOGLOBIN [id number] 00:00:00 Test Item Value Reference Range Interpretation Comments HEMOGLOBIN A1c (test code = 55343) 7.3 % COMPREHENSIVE METABOLIC [id number] 00:00:00 Test Item Value Reference Range Interpretation Comments GLUCOSE (test code = 2217) 113 MG/DL BUN (test code = 2208) 22 MG/DL CREATININE (test code = 2214) 0.9 MG/DL eGFR AMER. (test code 85 ML/MIN/1.73 = 73034) eGFR NON- AMER. (test 70 ML/MIN/1.73 code = 91767) CALCULATED BUN/CREAT (test 24 RATIO code = [...] code = 2219) 24 U/L COMPREHENSIVE METABOLIC [id number] 00:00:00 Test Item Value Reference Range Interpretation Comments GLUCOSE (test code = 2217) 113 MG/DL BUN (test code = 2208) 22 MG/DL CREATININE (test code = 2214) 0.9 MG/DL eGFR AMER. (test code 85 ML/MIN/1.73 = 64179) eGFR NON- AMER. (test 70 ML/MIN/1.73 code = 79318) CALCULATED BUN/CREAT (test 24 RATIO code = [...] code = 2219) 24 U/L CBC W/AUTO [id number] 00:00:00 Test Item Value Reference Range Interpretation [...] code = 1015) 270 K/UL CBC W/AUTO [id number] 00:00:00 Test Item Value Reference Range Interpretation [...] code = 1015) 270 K/UL CBC W/AUTO [id number] 00:00:00 Test Item Value Reference Range Interpretation [...] (test code = 1015) 270 K/UL HEMOGLOBIN [id number] 00:00:00 Test Item Value Reference Range Interpretation Comments HEMOGLOBIN A1c (test code = 89698) 7.3 % HEMOGLOBIN [id number] 00:00:00 Test Item Value Reference Range Interpretation Comments HEMOGLOBIN A1c (test code = 98376) 7.3 % HEMOGLOBIN [id number] 00:00:00 Test Item Value Reference Range Interpretation Comments HEMOGLOBIN A1c (test code = 87871) 7.3 % COMPREHENSIVE METABOLIC [id number] 00:00:00 Test Item Value Reference Range Interpretation Comments GLUCOSE (test code = 2217) 113 MG/DL BUN (test code = 2208) 22 MG/DL CREATININE (test code = 2214) 0.9 MG/DL eGFR AMER. (test code 85 ML/MIN/1.73 = 61433) eGFR NON- AMER. (test 70 ML/MIN/1.73 code = 81323) CALCULATED BUN/CREAT (test 24 RATIO code = [...] code = 2219) 24 U/L COMPREHENSIVE METABOLIC [id number] 00:00:00 Test Item Value Reference Range Interpretation Comments GLUCOSE (test code = 2217) 113 MG/DL BUN (test code = 2208) 22 MG/DL CREATININE (test code = 2214) 0.9 MG/DL eGFR AMER. (test code 85 ML/MIN/1.73 = 47521) eGFR NON- AMER. (test 70 ML/MIN/1.73 code = 87637) CALCULATED BUN/CREAT (test 24 RATIO code = [...] code = 2219) 24 U/L CBC W/AUTO [id number] 00:00:00 Test Item Value Reference Range Interpretation [...] code = 1015) 270 K/UL CBC W/AUTO [id number] 00:00:00 Test Item Value Reference Range Interpretation [...] code = 1015) 270 K/UL CBC W/AUTO [id number] 00:00:00 Test Item Value Reference Range Interpretation [...] (test code = 1015) 270 K/UL HEMOGLOBIN [id number] 00:00:00 Test Item Value Reference Range Interpretation Comments HEMOGLOBIN A1c (test code = 71926) 7.3 % HEMOGLOBIN [id number] 00:00:00 Test Item Value Reference Range Interpretation Comments HEMOGLOBIN A1c (test code = 50747) 7.3 % HEMOGLOBIN [id number] 00:00:00 Test Item Value Reference Range Interpretation Comments HEMOGLOBIN A1c (test code = 36432) 7.3 % Notes Date/Time Note Provider Source 2023-02-17 Formatting of this note might be differe nt from the original. [facility]36[facility]00 Patient here for c/o chronic , severe yeast infection with burning and pain. She was seen in the ER last 02/09/23, [facility] Electronically signed by Shanika Ospina LVN at 0 02/17/2023 4:34 PM CDT 2021-08-02 [facility] 21:55:00-00:00 [facility] DT Operative Note REPORT#:[id number] REPORT STATUS: Signed DATE:08/02/21 TIME: 2154 PATIENT: MARGE FRANCO UNIT #: [id number] ROOM/BED: : 78 AGE: 41 SEX: F ATTEND: Bebeto Quiroga MD ADM AUTHOR: Bebeto Quiroga MD * ALL edits or amendments must be made on the [employer]/computer document * Operative Report Operative Note Note: DATE OF SERVICE: 07/31/21 PREOPERATIVE DIAGNOSIS: left volar wrist ganglio n cyst POSTOPERATIVE DIAGNOSIS: left volar wrist gangli on cyst OPERATION PERFORMED: left volar wrist ganglion c yst excision SURGEON: Bebeto Quiroga SUPERVISOR SURGEON: Diaz simmons ANESTHESIA: general with local [...] was then prepped and draped in the [facility] sterile fashion. The arm was then [...] Quiroga MD on 07/12 09/29 at 2156 [facility] #:[id number] END OF REPORT 2020-02-13 [id number] [address] [address] PATIENT NAME: Marge Franco ADMIT DATE: 0 ACCOUNT NO: [id number] ROOM NO: AGE: 40 REPORT TYPE: HISTORY AND PHYSICAL SEX: F ADMITTING PHYSICIAN: ATTENDING PHYSICIAN:Judi Hodge DO ADMISSION DATE: 02/13/2020 HISTORY OF PRESENT ILLNESS: The patient is a 40- year-old female who is status post a right posterior tibial tendon reconstruct ion with debridement on 01/16/2020 at [facility]. Today, she was walking the stairs, felt a pop on the back of her operative leg in t he Achilles area and felt significant pain. She was brought to [facility] for evaluation. Presently in [facility], she is in significant pain and is [...] By: Judi Hodge DO WT: HP:DANY/NEYMAR/GM Conf#: [id number]/DID#: [id number] Authenticated by Judi Hodge DO On 0 07:57:56 AM Electronically Signed by Judi Hodge DO on 0 03/17/20 at 0758 PATIENT NAME: Marge Franco 6341 2020-01-16 [id number] [facility] 12:10:00-00:00 [address] [address] PATIENT NAME: MARGE FRANCO ADMIT DREW E: 01/16/20 ACCOUNT NO: [id number] ROOM NO: AGE: 39 REPORT TYPE: OPERATIVE [...] Achilles lengtheni ng. SURGEON: Elbert Wilson MD SUPERVISOR: LINDSAY Palma ANESTHESIA: General LMA with intraoperative [...] ligaments that were plicated with #2 FiberWire [id number] sutures. Once this was complete, a small [...] By: Elbert Wilson MD WT: OP:DANY/JENNY/GM Conf#: [id number]/DID#: [id number] Authenticated by Elbert Wilson MD On 01/19/2020 06:47:49 AM Electronically Signed by Elbert Wilson MD on at 0648 PATIENT NAME: MARGE FRANCO "
[2023-03-01] MEDS ORDERED: IBUPROFEN 200 MG TAB PO ONE (20:50)
[2023-03-01] MEDS ORDERED: IBUPROFEN 400 MG TAB ONE (20:50)
--- NOTE | 2023-03-01 20:55 | RAD REPORT ---
EXAM DESCRIPTION: RAD - Chest Pa And Lat (2 Views) - 03/01/2023 8:49 pm CLINICAL HISTORY: COUGH Chest pain. COMPARISON: <Comparisons> FINDINGS: The lungs are clear. The heart is normal in size. No displaced fractures. IMPRESSION: No acute or concerning finding suspected.
[2023-03-01 21:01] LABS: SARS-CoV-2 Antigen Rapid Res Positive (Negative)
--- NOTE | 2023-03-01 21:13 | ER ---
Nurse's Notes [facility] Name: Valentina Franco Age: 43 yrs Sex: Female : 1980 Arrival Date: 03/01/2023 Time: 19:41 Bed 11 Private MD: Diagnosis: SARS-associated coronavirus as the cause of diseases classified elsewhere Presentation: 03/01 20:35 Chief complaint: Patient states: "I've had a cough, headache, and sore throat since mb9 Tuesday. I've tested positive for COVID already". Coronavirus screen: Vaccine status: Patient reports receiving the 2nd dose of the covid vaccine. Ebola Screen: No symptoms or risks identified at this time. Initial Sepsis Screen: Does the patient meet any 2 criteria? No. Patient's initial sepsis screen is negative. Does the patient have a suspected source of infection? No. Patient's initial sepsis screen is negative. Risk Assessment: Do you want to hurt yourself or someone else? Patient reports no desire to harm self or others. Onset of symptoms was 2021. 20:35 Method Of Arrival: Ambulatory mb9 20:35 Acuity: CYNTHIA 4 mb9 Triage Assessment: 20:37 General: Appears uncomfortable, Behavior is cooperative. Pain: Complains of pain in mb9 head Pain does not radiate. Pain currently is 10 out of 10 on a pain scale. Quality of pain is described as throbbing, Pain began 2-3 days ago. Is continuous. EENT: Oral mucosa is dry. Neuro: [place] Agitation-Sedation Scale (RASS): 0 - Alert and Calm Level of Consciousness is awake, alert, obeys commands, Oriented to person, place, time, situation, Appropriate for age. Cardiovascular: Patient's skin is warm and dry. Respiratory: Reports cough that is Airway is patent Respiratory effort is even, unlabored, Respiratory pattern is regular, symmetrical. GI: Abdomen is round non-distended, Bowel sounds present X 4 quads. Patient currently denies diarrhea, nausea, vomiting. : No signs and/or symptoms were reported regarding the genitourinary system. Derm: Skin is pink, warm \\T\\ dry. Musculoskeletal: Range of motion: intact in all extremities. 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 - Social history:: Smoking status: Patient denies any tobacco usage or history of. Screenin:39 [facility] ED Fall Risk Assessment (Adult) History of falling in the last 3 months, mb9 including since admission No falls in past 3 months (0 pts) Confusion or Disorientation No (0 pts) Intoxicated or Sedated No (0 pts) Impaired Gait No (0 pts) Mobility Assist Device Used No (0 pt) Altered Elimination No (0 pt) Score/Fall Risk Level 0 - 2 = Low Risk Oriented to surroundings, Maintained a safe environment, Educated pt \\T\\ family on fall prevention, incl call for assistance when getting out of bed. Abuse screen: Denies threats or abuse. Nutritional screening: No deficits noted. Tuberculosis screening: No symptoms or risk factors identified. Assessment: 20:38 Reassessment: see triage assessment. mb9 Vital Signs: 20:35 BP 127 / 67; Pulse 90; Resp 19; Temp 99.4(O); Pulse Ox 100% on R/A; Weight 99.79 kg; mb9 Height 5 ft. 4 in. ; 21:56 BP 122 / 73; Pulse 89; Resp 16; Pulse Ox 99% on R/A; Pain 0/10; pf1 20:35 Body Mass Index 37.76 (99.79 kg, 162.56 cm) mb9 21:56 Pain Scale: Adult pf1 ED Course: 19:44 Patient arrived in ED. mr 19:48 Gunnar Mccabe DO is Attending Physician. ms3 20:35 Arm band placed on. mb9 20:35 Flu Sent. mb9 20:35 SARS RAPID Sent. mb9 20:37 Triage completed. mb9 20:39 Bed in low position. Call light in reach. Side rails up X 1. Client placed on mb9 continuous cardiac and pulse oximetry monitoring. NIBP monitoring applied. 20:39 No provider procedures requiring assistance completed. Patient did not have IV access mb9 during this emergency room visit. 20:48 Chest Pa And Lat (2 Views) XRAY In Process Unspecified. EDMS 20:59 Attending Physician role handed off by Gunnar Mccabe DO sp3 20:59 Shireen Hurst MD is Attending Physician. sp3 21:07 Greta Luis, RN is Primary Nurse. mb9 21:57 Provided Education on: medication administration for prescriptions. pf1 Administered Medications: 20:41 Drug: Ibuprofen PO 600 mg Route: PO; mb9 21:17 Follow up: Response: No adverse reaction mb9 Medication: 20:39 VIS not applicable for this client. mb9 Outcome: 21:13 Discharge ordered by . sp3 21:56 Discharged to home ambulatory. pf1 21:56 Condition: stable 21:56 Discharge instructions given to patient, Instructed on discharge instructions, follow up and referral plans. Demonstrated understanding of instructions, follow-up care, medications, Prescriptions given X 2. 21:57 Patient left the ED. pf1 Signatures: Dispatcher [employer] [facility] Greta Cali mr Gunnar Mccabe DO DO ms3 Shireen Hurst MD MD sp3 Greta Luis, RN RN mb9 Beatriz Tracy RN RN pf1
--- NOTE | 2023-03-01 21:13 | EDPHYS ---
Physician Documentation [facility] Name: Valentina Franco Age: 43 yrs Sex: Female : 1980 Arrival Date: 03/01/2023 Time: 19:41 Bed 11 Private MD: ED Physician Shireen Hurst HPI: 03/01 19:57 This 43 yrs old Female presents to ER via Unassigned with complaints of Cough, ms3 Sore Throat. 19:57 43-year-old female with past medical history of diabetes and chronic pancreatitis ms3 presents for throat pain, back pain from coughing, cough. Patient notes she was diagnosed with COVID 1 week ago. Patient endorses chills. Patient denies nausea or vomiting. Patient states her pain is an 8/10 in her sides. Patient states the pain is worse with coughing.. 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 - Social history:: Smoking status: Patient denies any tobacco usage or history of. ROS: 19:57 Eyes: Negative for injury, pain, redness, and discharge, Neck: Negative for injury, ms3 pain, and swelling, Cardiovascular: Negative for chest pain, and palpitations. Abdomen/GI: Negative for abdominal pain, nausea, vomiting, diarrhea, and constipation, MS/Extremity: Negative for injury and deformity, Skin: Negative for injury, rash, and discoloration. 19:57 Constitutional: Positive for chills. 19:57 Respiratory: Positive for cough. 19:57 All other systems are negative. Exam: 19:57 Constitutional: This is a well developed, well nourished patient who is awake, alert, ms3 and in no acute distress. Head/Face: Normocephalic, atraumatic. Neck: Trachea midline, no cervical lymphadenopathy. Supple, full range of motion without nuchal rigidity, or vertebral point tenderness. No Meningismus. Chest/axilla: Normal chest wall appearance and motion. Nontender with no deformity. Cardiovascular: Regular rate and rhythm with a normal S1 and S2. No gallops, murmurs, or rubs. Normal PMI, no JVD. No pulse deficits. Respiratory: Lungs have equal breath sounds bilaterally, clear to auscultation and percussion. No rales, rhonchi or wheezes noted. No increased work of breathing, no retractions or nasal flaring. Abdomen/GI: Soft, non-tender, with normal bowel sounds. No distension or tympany. No guarding or rebound. No evidence of tenderness throughout. Skin: Warm, dry with normal turgor. Normal color with no rashes, no lesions, and no evidence of cellulitis. MS/ Extremity: Pulses equal, no cyanosis. Neurovascular intact. Full, normal range of motion. Vital Signs: 20:35 BP 127 / 67; Pulse 90; Resp 19; Temp 99.4(O); Pulse Ox 100% on R/A; Weight 99.79 kg; mb9 Height 5 ft. 4 in. ; 21:56 BP 122 / 73; Pulse 89; Resp 16; Pulse Ox 99% on R/A; Pain 0/10; pf1 20:35 Body Mass Index 37.76 (99.79 kg, 162.56 cm) mb9 21:56 Pain Scale: Adult pf1 MDM: 19:57 Differential Diagnosis: Bronchitis Influenza Upper Respiratory Infection Viral Syndrome ms3 Pneumonia. 20:26 Patient medically screened. ms3 21:12 ED course: Laboratory values demonstrated positive COVID-19. No further intervention sp3 needed. We will treat patient with Tessalon and safely discharge patient home with general precautions.. 03/01 19:57 Order name: SARS RAPID; Complete Time: 21:03 ms3 03/01 19:57 Order name: Flu; Complete Time: 21:12 ms3 03/01 19:57 Order name: Chest Pa And Lat (2 Views) XRAY; Complete Time: 20:58 ms3 Administered Medications: 20:41 Drug: Ibuprofen PO 600 mg Route: PO; mb9 21:17 Follow up: Response: No adverse reaction mb9 Disposition Summary: 03/01/23 21:13 Discharge Ordered Location: Home sp3 Condition: Stable sp3 Diagnosis - SARS-associated coronavirus as the cause of diseases classified elsewhere sp3 Followup: sp3 - With: Private Physician - When: Upon discharge from the Emergency Department - Reason: Continuance of care Discharge Instructions: - Discharge Summary Sheet sp3 - COVID-19 sp3 Forms: - Medication Reconciliation Form sp3 - Thank You Letter sp3 - Antibiotic Education sp3 - Prescription Opioid Use sp3 - Patient Portal Instructions sp3 - Leadership Thank You Letter sp3 Prescriptions: - Tessalon Perles 100 mg Oral Capsule - take 1 capsule by ORAL route every 8 hours As needed; 15 capsule; Refills: 0, sp3 Product Selection Permitted - Diclofenac Sodium 75 mg Oral Tablet Sustained Release - take 1 tablet by ORAL route 2 times per day; 30 tablet; Refills: 0, Product sp3 Selection Permitted Signatures: Dispatcher [employer] EDGunnar Foss DO DO ms3 Shireen Hurst MD MD sp3 Greta Luis RN RN mb9
[2023-03-01 22:53] VITALS: TEMP 99.4
[2023-03-01 22:56] VITALS: BP 122/73; O2SAT 99
== END 2023-03-01 21:57 | disposition home or self-care (01) ==
LOC: ER 19:41
DX: U07.1 COVID-19 (principal); I10 Essential (primary) hypertension; E11.9 Type 2 diabetes mellitus without complications
CPT/HCPCS: 36415; 71046; 87804; 87811; 99284

== ENCOUNTER 2023-03-22 16:12 | Emergency (ER) | payer OTHER ==
[2023-03-22] MEDS ORDERED: NA CHLORIDE 0.9% 1,000 ML ONE (16:52)
[2023-03-22 16:58] LABS: Absolute Lymphocytes (CBC) 2.2 K/uL (0.7-4.9); Hematocrit 36.5 % (36.0-45.0); Lymphocytes % 40.4 % (15.3-44.8); MCV 84.6 fL (80-100); MPV 6.9 fL (7.6-11.3); Platelets 266 thou/uL (152-406); RBC Red Blood Cell Count 4.32 M/uL (3.86-4.86)
[2023-03-22 16:59] LABS: Protime INR 1.05
[2023-03-22 17:11] LABS: Specific Gravity 1.015 (1.005-1.030); Urine Bacteria <20 /HPF (<20); Urine Bilirubin NEGATIVE (Negative); Urine Blood Negative (Negative); Urine Clarity Extremely Turbid (Clear); Urine Color Yellow (Yellow); Urine Glucose NEGATIVE (Negative); Urine Mucus Slight /HPF (None Seen); Urine Protein NEGATIVE (Negative); Urine RBC <5 /HPF (None Seen); Urine Urobilinogen Normal (Normal)
[2023-03-22 17:12] LABS: Urine Crystals Unidentified Few /HPF (None Seen)
[2023-03-22 17:24] LABS: ALT/SGPT 98 U/L (13-56); AST/SGOT 54 U/L (15-37); Albumin 4.4 g/dL (3.4-5.0); Alkaline Phosphatase 29 U/L (45-117); BUN Blood Urea Nitrogen 25 mg/dL (7-18); Bicarbonate 24 mEq/L (21-32); Bilirubin Direct 0.1 mg/dL (0-0.2); Bilirubin Indirect, Calculated 0.3 mg/dL (0.2-0.8); Bilirubin Total 0.4 mg/dL (0.2-1.0); Glomerular Filtration Rate 59 ml/min (=/>90); Glucose Level 136 mg/dL (74-106); HDL Cholesterol 36 mg/dL (40-60); Magnesium 1.5 mg/dL (1.6-2.4); NT PRO-BNP 50 pg/mL (<125); Phosphorus 3.2 mg/dL (2.5-4.9); Potassium 4.5 mEq/L (3.5-5.1); Protein, Total 8.4 g/dL (6.4-8.2); Sodium Level 133 mEq/L (136-145); Uric Acid 6.7 mg/dL (2.6-6.0)
[2023-03-22 17:35] LABS: LDL, Direct 79 mg/dL (100-129)
--- NOTE | 2023-03-22 17:36 | RAD REPORT ---
EXAM DESCRIPTION: RADChest Single View03/22/2023 5:14 pm CLINICAL HISTORY: CARLOS COMPARISON: Chest Pa And Lat (2 Views) dated 03/01/2023; Chest Single View dated 11/26/2022; Chest Sin gle View dated 10/29/2022; Chest Single View dated 01/04/2022 TECHNIQUE: Portable AP view of the chest. FINDINGS: The lungs are clear. No pneumothorax or effusion. The cardiomediastinal contours are unrem arkable. IMPRESSION: No acute cardiopulmonary process.
--- OUTSIDE RECORDS SUMMARY | 2023-03-22 17:46 | XMS REPORT | Continuity of Care Document ---
:1980 Author Organization [facility] t Address [address] [place] [address] Care Team Providers Name Role Phone [phone] Primary Care Physician Unavailable Bebeto Quiroga Attending Clinician Unavailable Elbert Wilson Attending Clinician Unavailable ORLY THORPE Attending Clinician Unavailable AMNA CUTLER Attending Clinician Unavailable NETO PEOPLES Attending Clinician Unavailable LAB90 Attending Clinician Unavailable MYKELSEYONLINE, MD Attending Clinician Unavailable KAVYA BLOCK Attending Clinician Unavailable VALDEZ MINOR Attending Clinician Unavailable NICOLÁS EID Attending Clinician Unavailable ARLENE RAIN I Attending Clinician Unavailable ZOYA GONZALEZ Attending Clinician Unavailable GUDELIA GARCIA Attending Clinician Unavailable Ngoc Tinajero MD Attending Clinician Gudelia Garcia DO Attending Clinician JUDI MCCLELLAND Attending Clinician Unavailable IVELISSE MORRISON Attending Clinician Unavailable Loni ACTIVITIES CONCIERGE, Cynqi Attending Clinician KATELYN IVEY Attending Clinician Unavailable FABIO ZAMORA Attending Clinician Unavailable YRIS HARRIS Attending Clinician Unavailable Delvin FREEMAN, Leslie Monaco Attending Clinician MERI WRAY Attending Clinician Unavailable Robert Lutz MD Attending Clinician Meri Wray MD Attending Clinician Silvina Vallecillo MD Attending Clinician [phone] BEATRIZ EDUARDO Attending Clinician Unavailable Alesha ANDERSON, [...] LILY DELEON Attending Clinician Unavailable Doctor Unassigned, [place] Attending Clinician Unavailable STANISLAW SUN Attending Clinician [...] Date Expiration Date Nakul zavala [employer]IG[employer] GENERIC [id number] 2019 00:00:00 AETNA MP CVS 9 [id number] 2022 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 00:00:00 ON STAND [employer]ET[employer] COMMERCIAL [id number] 2022 OUT OF NETWORK 00:00:00 COMMERCIAL [id number] 2021 NON-CONTRACT 00:00:00 GENERIC Problems Condition Condition [...] yceridemia yceridemia 2-16 it y of 00:00: [place] [facility] Essential Essential Disease Active Uni vers hypertensi hypertensi 5-26 it y of on on 00:: [place] [facility] POTS POTS Disease Active Univers (postural (postural 5-26 ity of orthostati orthost[place] c c 00 Medical tachycardi tachycardi Br anch a a syndrome) syndrome) Dyslipidem Dyslipidem Disease Active U nivers ia ia 5-26 ity of 00:00: [place] [facility] Atypical Atypical Disease Active Unive rs chest pain chest pain 5-25 it y of 00:00: [place] [facility] Pancreatit Pancreatit Disease Active U [...] the original. 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 Utility Immune to Immune to Disease Active [...] 00 dic Hosp[facility] l alcohol FA Active ND [facility]ES [facility] 07-30 [place] 00:00: Orthope 00 dic Hospita l tequila DA Active ND hives [facility] 07-30 [place] 00:00: Orthope 00 dic Hospita l alcohol FA Active MO [facility] 01-15 [place] 00:00: Orthope 00 dic Hospita l alcohol FA Active MO HIVES TO [facility] 01-15 [place] 00:00: Orthope 00 dic Hospita l tequila DA Active MO hives [facility] 01-09 [place] 00:00: Fonseca 00 [facility] Cefpodox Propensi Active Other (See Eye and M ethodi dewayne ty to Comments) 8-[address] adverse 00:00: Swelling Hospita reaction 00 30 mins l s to after drug taking medicatio n alcohol FA Active ND 2015-07 [facility] 09-06 [place] 00:00: Orthope 00 dic Hospita l alcohol FA Active ND TURNS RED 2015-07 [facility] 09-06 [place] 00:00: Orthope 00 dic Hospita l NO KNOWN Drug Active Univers ALLERGIE Class ity of S [place] [facility] Family History Family Member Diagnosis Comments Start Date Stop Date Source Natural brother Diabetes [facility] Natural father [facility] Natural mother Diabetes [facility] Natural sister [facility] Social History Social Habit Start Date Stop Date Quantity Comments Source Gender identity [facility] Sexual orientation Method ist Hospital History SDOH Social Unive rsity of [facility] Med ical Together Branch History SDOH Social Unive rsity of [facility] Medical Branch History SDOH Social Unive rsity of [facility] Medical Membership Branch History SDOH Social Unive rsity of [facility] Medical Meetings Branch History SDOH Social 2023-01-11 2023-01-11 5 Unive rsity of Connections Phone 00:00:00 00:00:00 [place] [facility] edical [facility] History SDOH Social 2023-01-11 2023-01-11 5 Unive rsity of Connections Living 00:00:00 00:00:00 [place] [facility] History SDOH 2023-01-11 2023-01-11 0 University o f Physical Activity 00:00:00 00:00:00 [place] [facility] DPW Branch History SDOH 2023-01-11 2023-01-11 0 University o f Physical Activity 00:00:00 00:00:00 [place] [facility] MPS Branch History SDOH 2023-01-11 2023-01-11 5 University o f Financial 00:00:00 00:00:00 [place] [facility] History SDOH Food 2023-01-11 2023-01-11 1 Univers ity of Worry 00:00:00 00:00:00 [place] [facility] History SDOH Food 2023-01-11 2023-01-11 1 Univers ity of Scarcity 00:00:00 00:00:00 [place] [facility] History SDOH 2023-01-11 2023-01-11 2 [...] 14 University of 00:00:00 00:00:00 [facility] Branch Exposure to 2022-10-24 2022-11-03 Not sure University of SARS-CoV-2 (event) 00:00:00 08:52:00 [facility] Tobacco use and 2022-08-26 2022-08-26 Smokeless Universit y of exposure 00:00:00 00:00:00 tobacco non-user [facility] Alcohol intake 2019-11-22 2019-11-22 .14 /d Yarsani 00:00:00 00:00:00 Hospital History of Social 2019-11-22 2019-11-[address] function 00:00:00 00:00:00 Hospital History [facility] 2019-11-22 2019-11-22 2 Yarsani Alcohol Frequency 00:00:00 00:00:00 Hospita l History [facility] 2019-11-22 2019-11-22 1 Yarsani Alcohol Std Drinks 00:00:00 00:00:00 Hospit al History [facility] 2019-11-22 2019-11-22 1 Yarsani Alcohol Binge 00:00:00 00:00:00 Hospital Alcohol Comment 2016-09-09 2016-09-09 Megan joe. Meth odist 00:00:00 00:00:00 Hospital Sex Assigned At [birth year] Yarsani 00:00:00 00:00:00 Hospital Smoking Status Start Date Stop Date Source Never smoked tobacco [facility] [place] Medications Ordered Filled Start Stop Current Ordering Indication Dosage Frequency Signature Comments Components Source Medication Medication Date Date Medication? Clinician (SIG) Name Name Lisinopril Yes 5mg Take 1 Kelse y 5 MG oral 8-10 tablet (5 Seybo ld Tablet 16:33: mg total) - by mouth Externa daily l Fluconazole 2022- Yes [id number] 150mg Take 1 Andreea 150 MG oral 8-10 08-11 tablet Seybo ld Tablet 00:00: 04:59 (150 mg - 00 :00 total) by Externa mouth once l for 1 dose Meloxicam Yes [id number] TAKE 1 Andreea 15 MG oral 7-26 9107 TABLET BY Seyb old Tablet 00:00: MOUTH - 00 EVERY DAY Externa NEEDED l FOR PAIN [place]-3 Yes 1{capsu Take 1 Unive rs Fatty 7-05 le} capsule by ity of Acids-Vitam 11:23: [place] the Medical 2,000-650-1 morning Branc h 2 mg/2.5 and 1 gram ElPk capsule in the evening. insulin Yes 16U inject 16 Unive rs aspart -05 Units ity of injection 11:23: under the [...] Medical ORAL) Branch doxycycline 0 2022- Yes [id number] 100mg Take 1 Univers hyclate 100 01-1216 capsule by i ty of mg capsule 00:00: 04:59 mouth [place] 00 :00 every 12 Medical (twelve) Branch hours for 10 days. metroNIDAZO 0 2022- Yes [id number] 500mg Take 1 Univers LE 500 mg 01-12 tablet by ity of tablet 00:00: 04:59 mouth [place] 00 :00 every 12 Medical (twelve) Branch hours for 10 days. ondansetron 2022- Yes [id number] 4mg Take 1 Univers 4 mg 01-12 [...] at 0900, Until Discontinu ed, Routine FLUoxetine 2023-0 Yes 10mg 10 mg, Unive rs (PROZAC) 01-11 Oral, ity of capsule 10 14:00: DAILY, [place] mg 00 First dose Medical on Tue01/11/23 at 0900, Until Discontinu ed, Routine insulin Yes 16U 16 Units, Unive rs lispro 01-11 Subcutaneo ity of (human) 13:00: us, TID [place] (HumaLOG 00 MEALS, Medical U-100) First dose Branch injection on Tue 16 Units 01/11/23 at 0800, Until Discontinu ed doxycycline 2022- Yes 100mg 100 mg, U nivers hyclate 01-1008 Oral, ity of (Vibramycin 23:00: 22:59 Q12HA2, [...]
Duration of Therapy: Other (see Comments) cefOXitin 2022-2022- No 2g 2 g, Univers in 01-10 [...] swallow or has mental changes. dextrose 50 Yes 25mL 25 mL, Univ ers % [...] 2022- No 1{tbl} 1 tablet, Univers -acetaminop 01-1005 Oral, ity of hen (NORCO 16:08: 16:07 Q6HPRN, Blake as 5) 5-325 mg 17 :17 Starting Medi bonita tablet 1 on Tue tablet 01/10/23 at 1108, Until Tue01/12/23 at 1107, Routine, Pain (scale 4-6) acetaminoph Yes 650mg 650 mg, Un fabiana en 01-10 Oral, ity of (TYLENOL) 16:08: Q6HPRN, [place] tablet 650 14 Starting Medic al mg on Tue Branch 01/10/23 at 1108, Until Discontinu ed, Routine, Pain (scale 1-3) iopamidol 2022- No [id number] 73mL 73 mL, Univers (ISOVUE 01-10 Intravenou [...] Medical 01/10/23 Branch at 0830, STAT Lisinopril 2022-0 Yes 5mg Take 1 Kelse y 5 MG oral 6-27 tablet (5 Seybo ld Tablet 15:42: mg total) - 26 by mouth Externa daily l Spironolact 2022- Yes [id number] 100mg Take 1 Andreea one 100 MG 6-27 12-25 tablet Seybol d oral Tablet 00:00: 05:59 (100 mg - 00 :00 total) by Externa mouth at l bedtime With full glass of water. Spironolact 0 2022- Yes [id number] 100mg Take 1 Andreea one 100 MG [...] 2022- No 1{tbl} 1 tablet Andreea in 12-21-13 daily Seybold Propanediol 14:32: 00:00 - () 34 :00 Externa 10 MG oral l Tablet Lisinopril 2022-0 Yes 5mg Take 1 Kelse y 5 MG oral 6-13 tablet (5 Seybo ld Tablet 14:00: mg total) - 59 by mouth Externa daily l Ezetimibe 2022-0 Yes [id number] 10mg Take 1 K elsey 10 MG oral 6-13 tablet (10 Sey bold Tablet 00:00: mg total) - 00 by mouth Externa daily l Dapaglifloz 2022-0 Yes [id number] 1{tbl} Take 1 Andreea in 6-13 3 tablet by Seybold Propanediol 00:00: mouth - (xi) 00 daily Externa 10 MG oral l Tablet Insulin 2022-0 Yes [id number] Inject 12 Andreea Aspart 6-13 3 units Plus Seybold (NovoLOG 00:00: sliding - FlexPen) 00 scale 2 Externa 100 UNIT/ML unit for l subcutaneou every 50 s Solution above 150 Pen-injecto (maximum r 70 units per day) Ezetimibe 2022-0 Yes [id number] 10mg Take 1 K elsey 10 MG oral 6-13 tablet (10 Sey bold Tablet 00:00: mg total) - 00 by mouth Externa daily l Dapaglifloz 2022-0 Yes [id number] 1{tbl} Take 1 Andreea in 6-13 3 tablet by Seybold Propanediol 00:00: mouth - (xi) 00 daily Externa 10 MG oral l Tablet Insulin 2022-0 Yes [id number] Inject 12 Andreea Aspart 6-13 3 units Plus Seybold (NovoLOG 00:00: sliding - FlexPen) 00 scale 2 Externa 100 UNIT/ML unit for l subcutaneou every 50 s Solution above 150 Pen-injecto (maximum r 70 units per day) Ezetimibe 2022-0 Yes [id number] 10mg Take 1 K elsey 10 MG oral 6-13 tablet (10 Sey bold Tablet 00:00: mg total) - 00 by mouth Externa daily l Dapaglifloz 3-0 Yes [id number] 1{tbl} Take 1 Andreea in 6-13 3 tablet by Seybold Propanediol 00:00: mouth - (xi) 00 daily Externa 10 MG oral l Tablet Insulin 2022-0 Yes [id number] Inject 12 Andreea Aspart 6-13 3 units [...] - TABLET SR 56 :00 by mouth [employer] a 24 HR daily l Pantoprazol 2022- [...] - 18 by mouth Externa daily l [place]-3 2022-0 Yes [id number] 1999{ca Take 2,000 Andreea 1000 MG 12-17 psule} capsules Seybol d oral 00:00: by mouth 2 - Capsule 00 times Externa daily l Trazodone 2022-0 Yes [id number] 50mg Take 1 Spencer sey HCl 50 MG 6-09 tablet (50 Seyb old oral Tablet 00:00: mg total) - 00 by mouth Externa nightly l Fluoxetine 2022-0 Yes [id number] 20mg Take 1 Andreea HCl 20 MG 6-09 capsule Seybold oral 00:00: (20 mg - Capsule 00 total) by Externa mouth l daily busPIRone 2022-0 Yes [id number] 10mg Take 1 K elsey HCl 10 MG 6-09 tablet (10 Seyb old oral Tablet 00:00: mg total) - 00 by mouth 2 Externa times l daily Trazodone 2022-0 Yes [id number] 50mg Take 1 Spencer sey HCl 50 MG 6-09 tablet (50 Seyb old oral Tablet 00:00: mg total) - 00 by mouth Externa nightly l Fluoxetine 2022-0 Yes [id number] 20mg Take 1 Andreea HCl 20 MG 6-09 capsule Seybold oral 00:00: (20 mg - Capsule 00 total) by Externa mouth l daily busPIRone 2022-0 Yes [id number] 10mg Take 1 K elsey HCl 10 MG 6-09 tablet (10 Seyb old oral Tablet 00:00: mg total) - 00 by mouth 2 Externa times l daily Icosapent 2022-0 Yes [id number] 2{capsu Take 2 Andreea Ethyl 1 g 6-09 le} capsules Seybol d oral 00:00: by mouth 2 - Capsule 00 times Externa daily l Fluoxetine 2022-0 Yes [id number] 20mg Take 1 Andreea HCl 20 MG 6-09 capsule Seybold oral 00:00: (20 mg - Capsule 00 total) by Externa mouth l daily busPIRone 2022-0 Yes [id number] 10mg Take 1 K elsey HCl 10 MG 6-09 tablet (10 Seyb old oral Tablet 00:00: mg total) - 00 by mouth 2 Externa times l daily Icosapent 2022-0 Yes [id number] 2{capsu Take 2 Andreea Ethyl 1 g 6-09 le} capsules Seybol d oral 00:00: by mouth 2 - Capsule 00 times Externa daily l Fluoxetine 2022-0 Yes [id number] 20mg Take 1 Andreea HCl 20 MG 6-09 capsule Seybold oral 00:00: (20 mg - Capsule 00 total) by Externa mouth l daily busPIRone 2022-0 Yes [id number] 10mg Take 1 K elsey HCl 10 MG 6-09 tablet (10 Seyb old oral Tablet 00:00: mg total) - 00 by mouth 2 Externa times l daily Icosapent 2022-0 Yes [id number] 2{capsu Take 2 Andreea Ethyl 1 g 6- le} capsules Seybol d oral 00:00: by mouth 2 - Capsule 00 times Externa daily l Trazodone 2022-0 2023- No [id number] 50mg Take 1 Ke lsey HCl 50 MG 6-03 16-27 tablet (50 Sey bold oral Tablet 00:00: 00:00 mg total) - 00 :00 by mouth Externa nightly l Meloxicam 2022-0 Yes [id number] TAKE 1 Andreea 15 MG oral 5-25 9107 TABLET BY Seyb old Tablet 00:00: MOUTH - 00 EVERY DAY Externa NEEDED l FOR PAIN Meloxicam 2022-0 Yes [id number] TAKE 1 Andreea 15 MG oral 5-25 9107 TABLET BY Seyb old Tablet 00:00: MOUTH - 00 EVERY DAY Externa NEEDED l FOR PAIN Meloxicam 2022-0 Yes [id number] TAKE 1 Andreea 15 MG oral 5-25 9107 TABLET BY Seyb old Tablet 00:00: MOUTH - 00 EVERY DAY Externa NEEDED l FOR PAIN Hydrocortis 2022-0 2023- No TAKE 2 Spencer sey one 10 MG 5-25 06-09 TABLET BY Seyb old oral Tablet 00:00: 00:00 MOUTH IN - 00 :00 THE Externa MORNING l AND 1 TABLET BY MOUTH IN THE EVENING busPIRone 2022-0 3- No Andreea HCl 10 MG 5-24 06-09 Seybold oral Tablet 00:00: 00:00 - 00 :00 Externa l Fluoxetine 3-0 3- No Andreea HCl 20 MG 5-24 06-09 Seybold oral 00:00: 00:00 - Capsule 00 :00 Externa l Trazodone 2022-0 3- No Andreea HCl 50 MG 5-24 06-09 Seybold oral Tablet 00:00: 00:00 - 00 :00 Externa l Promethazin 2023-0 Yes [id number] TAKE 1 TAB Andreea e HCl 5-21 (25 MG) BY Seybold (PHENERGAN) 00:00: MOUTH - 25 MG oral 00 EVERY 6 [employer] a Tablet HOURS l NEEDED FOR NAUSEA / VOMITING Promethazin 0 Yes [id number] TAKE 1 TAB Andreea e HCl 5-21 (25 MG) BY Seybold (PHENERGAN) 00:00: MOUTH - 25 MG oral 00 EVERY 6 [employer] a Tablet HOURS l NEEDED FOR NAUSEA / VOMITING Promethazin 0 Yes [id number] TAKE 1 TAB Andreea e HCl 5-21 (25 MG) BY Seybold (PHENERGAN) 00:00: MOUTH - 25 MG oral 00 EVERY 6 [employer] a Tablet HOURS l NEEDED FOR NAUSEA / VOMITING Promethazin 0 Yes [id number] TAKE 1 TAB Andreea e HCl 5-21 (25 MG) BY Seybold (PHENERGAN) 00:00: MOUTH - 25 MG oral 00 EVERY 6 [employer] a Tablet HOURS l NEEDED FOR NAUSEA / VOMITING HYDROcodone 2022- No 1{tbl} Q.25D Take 1 Andreea -Acetaminop 5-21 - tablet by Se ybold hen 10-325 00:00: 00:00 mouth - MG oral 00 :00 every 6 Externa Tablet hours as l needed FOR PAIN Phenazopyri 2022- No 100mg Take 1 Ke lsey dine HCl 5-29 12-09 tablet Seybold 100 MG oral 00:00: 00:00 [...] On Branch Tue11/03/22 at 0930, MALAIKA ondansetron 2022-0 2022- No 4mg 4 mg, Slow Univers (ZOFRAN 11-03 IV Push, ity of (PF)) 14:30: 14:35 ONCE, 1 [place] injection 4 00 :00 dose, On Medi bonita mg Wed Branch 4/26/23 at 0930, MALAIKA dicyclomine Yes [id number] 20mg Take 1 Univers 20 mg 4-26 tablet by ity of tablet 00:00: mouth 4 [place] 00 (four) Medical times Branch daily as needed for Abdominal pain. ondansetron 0 Yes [id number] 4mg Take 1 Univers 4 mg 4-26 tablet by ity of disintegrat 00:00: mouth [place] ing tablet 00 every 12 Medic al (twelve) Branch hours as needed for Nausea and Vomiting (N/V). dicyclomine 2022- No [id number] 20mg Take 1 Univers 20 mg 4-26 07-03 tablet by ity of tablet 00:00: 00:00 mouth 4 [place] 00 :00 (four) Medical times Branch daily as needed for Abdominal pain. ondansetron 2022- No [id number] 4mg Take 1 Univers 4 mg 4-26 [...] NEEDED FOR NAUSEA AND VOMITING Atorvastati Yes [id number] 80mg Take 1 Andreea n Calcium 4-18 tablet (80 Seyb old 80 MG oral 00:00: mg total) - Tablet 00 by mouth Externa daily l Insulin Yes [id number] 10U Inject 10 Andreea Aspart 4-18 3 units into Seybold (NovoLOG 00:00: the skin 3 - FlexPen) 00 times Externa 100 UNIT/ML daily l subcutaneou (before s Solution meals) Pen-injecto Plus r sliding scale 1 unit for every 50 above 150 (maximum 50 units per day) Insulin Yes [id number] 100U Inject 100 Andreea Glargine 4-18 3 units into Seybo ld (Basaglar 00:00: the skin - KwikPen) 00 at bedtime Exter na 100 UNIT/ML l subcutaneou s Solution Pen-injecto r Metformin Yes [id number] 1000mg Take 1 Andreea HCl 1000 MG 4-18 3 tablet Seybol d oral Tablet 00:00: (1,000 mg - 00 total) by Externa mouth in l the morning and 1 tablet (1,000 mg total) in the evening. Take with meals. Atorvastati Yes [id number] 80mg Take 1 Andreea n Calcium 4-18 tablet (80 Seyb old 80 MG oral 00:00: mg total) - Tablet 00 by mouth Externa daily l Insulin Yes [id number] 100U Inject 100 Andreea Glargine 4-18 3 units into Seybo ld (Basaglar 00:00: the skin - KwikPen) 00 at bedtime Exter na 100 UNIT/ML l subcutaneou s Solution Pen-injecto r Metformin Yes [id number] 1000mg Take 1 Andreea HCl 1000 MG 4-18 3 tablet Seybol d oral Tablet 00:00: (1,000 mg - 00 total) by Externa mouth in l the morning and 1 tablet (1,000 mg total) in the evening. Take with meals. Atorvastati Yes [id number] 80mg Take 1 Andreea n Calcium 4-18 tablet (80 Seyb old 80 MG oral 00:00: mg total) - Tablet 00 by mouth Externa daily l Insulin Yes [id number] 100U Inject 100 Andreea Glargine 4-18 3 units into Seybo ld (Basaglar 00:00: the skin - KwikPen) 00 at bedtime Exter na 100 UNIT/ML l subcutaneou s Solution Pen-injecto r Metformin Yes [id number] 1000mg Take 1 Andreea HCl 1000 MG 4-18 3 tablet Seybol d oral Tablet 00:00: (1,000 mg - 00 total) by Externa mouth in l the morning and 1 tablet (1,000 mg total) in the evening. Take with meals. Atorvastati 0 Yes [id number] 80mg Take 1 Andreea n Calcium 4-18 tablet (80 Seyb old 80 MG oral 00:00: mg total) - Tablet 00 by mouth Externa daily l Insulin 2022-0 Yes [id number] 100U Inject 100 Andreea Glargine 4-18 3 units into Seybo ld (Basaglar 00:00: the skin - KwikPen) 00 at bedtime Exter na 100 UNIT/ML l subcutaneou s Solution Pen-injecto r Metformin 2022-0 Yes [id number] 1000mg Take 1 Andreea HCl 1000 MG 4-18 3 tablet Seybol d oral Tablet 00:00: (1,000 mg - 00 total) by Externa mouth in l the morning and 1 tablet (1,000 mg total) in the evening. Take with meals. 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) glucose l does not monitoring apply Device Continuous Yes [id number] Use as Andreea Blood Gluc 3-03 3 directed Seybo ld Sensor 00:00: for - (Dexcom G6 00 continuous Ext john Sensor) glucose l does not monitoring apply Misc with Dexcom system Ostomy Yes [id number] Use as Ke lsey Supplies 3-03 3 directed Seybold (Skin Tac 00:00: for - Adhesive 00 continuous Exter na Barrier glucose l Wipe) does monitoring not apply with Misc Dexcom system Fenofibrate Yes [id number] 160mg Take 1 Andreea 160 MG oral 3-03 tablet Seybol d Tablet 00:00: (160 mg - 00 total) by Externa mouth l daily Insulin Yes [id number] 10U Inject 10 Andreea Aspart 3-03 3 units into Seybold (NovoLOG 00:00: the skin 3 - FlexPen) 00 times Externa 100 UNIT/ML daily l subcutaneou (before s Solution meals) Pen-injecto Plus r sliding scale 1 unit for every 50 above 150 (maximum 50 units per day) Continuous Yes [id number] Use as Andreea Blood Gluc 3-03 3 directed Seybo ld Transmit 00:00: for - (Dexcom G6 00 continuous Ext john Transmitter glucose l ) does not monitoring apply Misc with Dexcom system Continuous Yes [id number] Use as Andreea Blood Gluc 3-03 3 directed Seybo ld 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) glucose l does not monitoring apply Device Continuous Yes [id number] Use as Andreea Blood Gluc 3-03 3 directed Seybo ld Sensor 00:00: for - (Dexcom G6 00 continuous Ext john Sensor) glucose l does not monitoring apply Misc with Dexcom system Ostomy Yes [id number] Use as Ke lsey Supplies 3-03 3 directed Seybold (Skin Tac 00:00: for - Adhesive 00 continuous Exter na Barrier glucose l Wipe) does monitoring not apply with Misc Dexcom system Fenofibrate Yes [id number] 160mg Take 1 Andreea 160 MG oral 3-03 tablet Seybol d Tablet 00:00: (160 mg - 00 total) by Externa mouth l daily Continuous Yes [id number] Use as Andreea Blood Gluc 3-03 3 directed Seybo ld Transmit 00:00: for - (Dexcom G6 00 continuous Ext john Transmitter glucose l ) does not monitoring apply Misc with Dexcom system Continuous Yes [id number] Use as Andreea Blood Gluc 3-03 3 directed 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 ld 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) glucose l does not monitoring apply Device Continuous Yes [id number] Use as Andreea Blood Gluc 3-03 3 directed Seybo ld Sensor 00:00: for - (Dexcom G6 00 continuous Ext john Sensor) glucose l does not monitoring apply Misc with Dexcom system Ostomy Yes [id number] Use as Ke lsey Supplies 3-03 3 directed Seybold (Skin Tac 00:00: for - Adhesive 00 continuous Exter na Barrier glucose l Wipe) does monitoring not apply with Misc Dexcom system Fenofibrate Yes [id number] 160mg Take 1 Andreea 160 MG oral 3-03 tablet Seybol d Tablet 00:00: (160 mg - 00 total) by Externa mouth l daily Continuous Yes [id number] Use as Andreea Blood Gluc 3-03 3 directed Seybo ld Transmit 00:00: for - (Dexcom G6 00 continuous Ext john Transmitter glucose l ) does not monitoring apply Misc with Dexcom system Continuous Yes [id number] Use as Andreea Blood Gluc 3-03 3 directed Seybo ld 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) glucose l does not monitoring apply Device Continuous Yes [id number] Use as Andreea Blood Gluc 3-03 3 directed Seybo ld Sensor 00:00: for - (Dexcom G6 00 continuous Ext john Sensor) glucose l does not monitoring apply Misc with Dexcom system Ostomy Yes [id number] Use as Ke lsey Supplies 3-03 3 directed Seybold (Skin Tac 00:00: for - Adhesive 00 continuous Exter na Barrier glucose l Wipe) does monitoring not apply with Misc Dexcom system Fenofibrate Yes [id number] 160mg Take 1 Andreea 160 MG oral 3-03 tablet Seybol d Tablet 00:00: (160 mg - 00 total) by Externa mouth l daily Continuous Yes [id number] Use as Andreea Blood Gluc 3-03 3 directed Seybo ld Transmit 00:00: for - (Dexcom G6 00 continuous Ext john Transmitter glucose l ) does not monitoring apply Misc with Dexcom system Continuous Yes [id number] Use as Andreea Blood Gluc 3-03 3 directed Seybo ld 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) glucose l does not monitoring apply Device Continuous Yes [id number] Use as Andreea Blood Gluc 3-03 3 directed Seybo ld Sensor 00:00: for - (Dexcom G6 00 continuous Ext john Sensor) glucose l does not monitoring apply Misc with Dexcom system Fenofibrate Yes [id number] 160mg Take 1 [place]ree[place] 160 MG oral 3-03 tablet Seybol d Tablet 00:00: (160 mg - 00 total) by Externa mouth l daily Continuous Yes [id number] Use as [place]reea Blood Gluc 3-03 3 directed Seybo ld Transmit 00:00: for - (Dexcom G6 00 continuous Ext john Transmitter glucose l ) does not monitoring apply Misc with Dexcom system Continuous Yes [id number] Use as [place] Blood Gluc 3-03 3 directed Seybo ld 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) glucose l does not monitoring apply Device Continuous Yes [id number] Use as [place] Blood Gluc 3-03 3 directed Seybo ld Sensor 00:00: for - (Dexcom G6 00 continuous Ext john Sensor) glucose l does not monitoring apply Misc with Dexcom system Ostomy Yes [id number] Use as Ke lsey Supplies 3-03 3 directed Seybold (Skin Tac 00:00: for - Adhesive 00 continuous Exter na Barrier glucose l Wipe) does monitoring not apply with Misc Dexcom system Fenofibrate Yes [id number] 160mg Take 1 [place] 160 MG oral 3-03 tablet Seybol d Tablet 00:00: (160 mg - 00 total) by Externa mouth l daily Insulin Yes [id number] 10U Inject 10 [place] Aspart 3-03 3 units into Seybold (NovoLOG 00:00: the skin 3 - FlexPen) 00 times Externa 100 UNIT/ML daily l subcutaneou (before s Solution meals) Pen-injecto Plus r sliding scale 1 unit for every 50 above 150 (maximum 50 units per day) Ostomy 2022- No [id number] Use as K elsey Supplies 3-03 08-10 3 directed Seybol d (Skin Tac 00:00: 00:00 for - Adhesive 00 :00 continuous Exter na Barrier glucose l Wipe) does monitoring not apply with Misc Dexcom system Insulin Yes [id number] 100U Inject 100 [place] Glargine 3-01 3 units into Seybo ld (Basaglar 00:00: the skin - KwikPen) 00 at bedtime Exter na 100 UNIT/ML l subcutaneou s Solution Pen-injecto r [place]-3 Yes [id number] 1000{ca Take 1,000 Andreea 1000 MG 3-01 psule} capsules Seybol d oral 00:00: by mouth 3 - Capsule 00 times Externa daily l Insulin Yes [id number] 100U Inject 100 [place] Glargine 3-01 3 units into Seybo ld (Basaglar 00:00: the skin - KwikPen) 00 at bedtime Exter na 100 UNIT/ML l subcutaneou s Solution Pen-injecto r [place]-3 Yes [id number] 1000{ca Take 1,000 Andreea 1000 MG 3-01 psule} capsules Seybol d oral 00:00: by mouth 3 - Capsule 00 times Externa daily l [place]-3 2022- No [id number] 1000{ca Take 1,000 Andreea 1000 MG 3-01 06-09 psule} capsules Seybo ld oral 00:00: 00:00 by mouth 3 - Capsule 00 :00 times Externa daily l Insulin 2022-2022- No [id number] 10U Inject 10 [place] Aspart 3-01 03-03 3 units into Seybol d (NovoLOG 00:00: 00:00 the skin 3 - FlexPen) 00 :00 times Externa 100 UNIT/ML daily l subcutaneou (before s Solution meals) Pen-injecto r [place]-3 2022- No Take by Andreea 1000 MG 09-07 mouth Seybold oral 15:18: 00:00 - Capsule 41 :00 Externa l Insulin 2022-0 2022- No Inject Andreea Aspart 09-07 into the Seybold (NovoLOG 15:18: 00:00 skin - FlexPen) 41 :00 Externa 100 UNIT/ML l subcutaneou s Solution Pen-injecto r Insulin 2022-2022- No Inject [place] Glargine 09-07 into the Seybol d (Basaglar 15:18: 00:00 skin at - KwikPen) 41 :00 bedtime Externa 100 UNIT/ML l subcutaneou s Solution Pen-injecto r Amitriptyli 0 2022- No 10mg Take 10 mg Andreea ne HCl 10 -07 09-28 by mouth Seybo ld MG oral 15:10: 00:00 at bedtime - Tablet 02 :00 Externa l MethIMAzole 2022-0 2022- No 10mg Take 10 mg [place]reea 10 MG oral 09-07-28 by mouth Seyb old Tab 15:01: 00:00 daily - 44 :00 Externa l Metformin 0 Yes 1000mg Take 1,000 Andreea HCl 1000 MG -28 mg by Seybold oral Tab 14:59: mouth [...] 10 mg Ke lsey 10 MG oral -28 by mouth Seybo ld Tablet 14:59: daily - 38 Externa l Lisinopril Yes 5mg Take 5 mg Ke lsey 5 MG oral -28 by mouth Seybol d Tablet 14:59: daily - 38 Externa l [place]-3 Yes [id number] 1000{ca Take 1,000 Andreea 1000 MG - psule} capsules Seybol d oral 00:00: by mouth 3 - Capsule 00 times Externa daily l Insulin Yes [id number] 10U Inject 10 [place] Aspart 09-07 3 units into Seybold (NovoLOG 00:00: the skin 3 - FlexPen) 00 times Externa 100 UNIT/ML daily l subcutaneou (before s Solution meals) Pen-injecto r Insulin Yes [id number] 100U Inject 100 [place] Glargine -28 3 units into Seybo ld (Basaglar 00:00: the skin - KwikPen) 00 at bedtime Exter na 100 UNIT/ML l subcutaneou s Solution Pen-injecto r Insulin 2022- No [id number] 100U Inject 100 [place] Glargine 28 - 3 units into Seyb old (Basaglar 00:00: [...] Until 08/30/22 at 0825, Routine insulin Yes [id number] 72U inject 72 Univers degludec 2-20 Units ity of (TRESIBA 00:00[facility] skin 2 Medical U-100) 100 (two) Branch unit/mL (3 times mL) InPn daily. insulin Yes [id number] 72U inject 72 Univers degludec 2-20 Units ity of (TRESIBA 00:00: [place] FLEXTOUCH 00 skin 2 Medical U-100) 100 (two) Branch unit/mL (3 times mL) InPn daily. insulin Yes [id number] 72U inject 72 Univers degludec 2-20 Units ity of (TRESIBA 00:00: [place] FLEXTOUCH 00 skin 2 Medical U-100) 100 (two) Branch unit/mL (3 times mL) InPn daily. insulin 2022- No [id number] 72U inject 72 Univers degludec 2-20 07-03 Units ity of (TRESIBA 00:00: 00:00 under the [place] as FLEXTOUCH 00 :00 skin 2 Medical U-100) 100 (two) Branch unit/mL (3 times mL) InPn daily. atorvastati 2022- No [id number] 80mg Take 1 Univers n 80 mg 2-20 - tablet by ity of tablet 00:00: 04:59 mouth at [place] 00 :00 bedtime Medical for 30 Branch days. FORTUNATO 2022- No [id number] 1g Take 1 Un fabiana omega-3-aci 08-30 capsule by i ty of d ethyl 00:00: 04:59 mouth in [place] esters, 1 00 :00 the Medical gram morning Branch capsule and 1 capsule in the evening. Do all this for 30 days. atorvastati 2022- No [id number] 80mg Take 1 Univers n 80 mg 08-30 tablet by ity of tablet 00:00: 04:59 mouth at [place] 00 :00 bedtime Medical for 30 Branch days. LOVMALIA, 2022- No [id number] 1g Take 1 Un fabiana omega-3-aci 08-30 capsule by i ty of d ethyl 00:00: 04:59 mouth in [place] esters, 1 00 :00 the Medical gram [...] -18 Oral, ity of (TYLENOL) 18:48: Q6HPRN, [place] tablet 650 59 Starting Medic al mg [...] Yes 2mg 2 mg, Slow Univers mg/mL) 17 IV Push, ity of injection 2 20:13: Q4HPRN, [place] mg 31 Starting Medical on Tue Branch 08/27/22 at 1413, Until Discontinu ed, Routine, Pain (scale 7-10) enoxaparin 2022-0 Yes 40mg 40 mg, Unive rs (LOVENOX) -17 Subcutaneo ity of injection 15:00: [place], DAILY, [place] 40 mg 00 First dose Medical on Tue [place] 08/27/22 at 0900, Until Discontinu ed, Routine lisinopriL 2022-0 Yes 2.5mg 2.5 mg, Uni vers (PRINIVIL,Z 2-17 Oral, ity of ESTRIL) 15:00: DAILY, [place] tablet 2.5 00 First dose Med ical mg on Tue [place] 08/27/22 at 0900, Until Discontinu ed, Routine fenofibrate 0 Yes 134mg 134 mg, Un fabiana micronized -17 Oral, ity of (LOFIBRA) 15:00: DAILY, [place] capsule 134 00 First dose Me dical mg on Tue [place] 08/27/22 at 0900, Until Discontinu ed, Routine gabapentin 2022-0 Yes 600mg 600 mg, Uni vers (NEURONTIN) -17 Oral, BID, it y of tablet 600 02:00: First dose [place] mg 00 on [facility] Medical 08/26/22 at Branch 2000, Until Discontinu ed, Routine insulin 2022-0 2023- No .1U/kg/ 0.1 Univer s regular in 08-27 02-20 h Units/kg/h it y of 0.9 % NaCl 02:00: 14:25 r ?108.8 [place] (MYXREDLIN) 00 :34 kg (10.88 Med ical 100 mL/hr), IV Branch unit/100 mL Infusion, (1 unit/mL) CONTINUOUS RTU IV , Starting infusion on [facility] 08/26/[address] art insulin infusion [...] 00:00: 21:45 Infusion, [place] 1,000 mL :17 CONTINUOUS Medic al , Starting Branch on [facility] 08/26/22 at 1800, Until 08/29/22 at 1545, Routine LOVAZA Yes 2{capsu 2 g (2 Univer s (omega-3-ac 16 le} capsule), ity of id ethyl 23:00: Oral, BID, [place] esters) 00 First dose Medica l capsule 2 g on [facility] 08/26/22 at 1700, Until Discontinu ed, Routine atorvastati Yes 80mg 80 mg, Univ ers n (LIPITOR) 2-16 Oral, QHS, it y of tablet 80 23:00: First dose [place] mg 00 on [facility] 08/26/22 at Branch 1700, Until Discontinu ed, Routine insulin 2022- No 8U 8 Units, Unive rs regular 08-26 Slow IV ity of human 23:00: 23:06 Push, [place] (HUMULIN R) 00 :00 ONCE, 1 Medic al injection 8 dose, On Bran ch Units [facility] 08/26/22 at 1700, STAT
In dication for insulin: Hyperglyce shea NaCl 0.9% 2022- No 2000mL at 999 Uni vers (NS) bolus 08-26 mL/hr, ity of infusion 21:45: 23:52 2,000 mL, [place] 2,000 mL 00 :00 IV Medical Piggyback, [place] ONCE, 1 dose, On [facility] 08/26/22 at 1545, STAT insulin 2022- No 10U 10 Units, Univ ers regular 08-26 Slow IV ity of human 21:00: 21:11 Push, [place] (HUMULIN R) 00 :00 ONCE, 1 Medic al injection dose, On Branch 10 Units [facility] 08/26/22 at 1500, STAT
In dication for insulin: Hyperglyce [place] Lactobacill 2022- No Take by Un fabiana us 08-26 mouth. ity of acidophilus 18:46: 00:00 [place] (PROBIOTIC 18 :00 Medical ORAL) Branch MULTIVITAMI 2022- No Take by Un fabiana N ORAL 2-16 02-16 mouth. ity of 18:46: 00:00 [place] 18 :00 Medical Branch multivitami 0 2022- No Take by Tony andre with 2-16 02-16 mouth. ity of minerals 18:46: 00:00 [place] (HAIR,SKIN 18 :00 Medical AND NAILS Branch [...] 2021-07 No DIRECTED. 2-14 00:00: 00 Dose 2021-1 [...] 2-13 ity of 1000 mL + 02:00: [place] KCL 20 mEq 00 [facility] Branch D5W 0.45% 2021-07 Yes [...] :00 dose, On Medi bonita mg [facility] Branch 06/21/22 at 1900, [place] NaCl 0.9% [...] 6-03 00:00: 00 Dose 2022-0 No Unknown 6- [...] 00:00: insulin 100 00 [facility]mL (3 mL) [facility] al[facility] 2-0 No 1mg [...] mL 00:00: mL) (18 mg/3 00 mL) [facility] Tresiba 2-0 No (3 mL) FlexTouch 5-14 U-100 00:00: insulin 100 00 unit/mL (3 mL) [facility] 2-0 No 1mg [...] 4-13 00:00: 00 Dose 2022-0 No Unknown 4- 00:00: 00 Dose 2-0 No Unknown 4- 00:00: 00 Dose 2-0 No Unknown 4- 00:00: 00 NaCl 0.9% No 1000mL at 999 Uni vers (NS) IV 10-17 mL/hr, ity of infusion 02:00: 02:08 Intravenou [place] 1,000 mL 00 :00 s, ONCE, 1 Medic al dose, On Branch Tue10/16/21 at 2100, [place] insulin No .1U/kg 10.3 Units U nivers regular 10-17 (rounded ity of human 02:00: 01:14 from 1034 [place] (HUMULIN R) 00 :00 Units = Medic [...] dose, On Branch Tue10/16/21 at 1815, Routine
[employer] member approving Restricted medication : BEATRIZ EDUARDO oxybutynin 2021-0 Yes [id number] 5mg Take 1 Univers chloride 5 4-08 tablet by ity of mg tablet 00:00: mouth 3 [place] 00 (three) Medical times Branch daily as needed for Bladder spasms. ondansetron 2021-0 Yes [id number] 4mg Take 1 Univers 4 mg 4-08 tablet by ity of disintegrat 00:00: mouth [place] ing tablet 00 every 8 Medica l (eight) Branch hours as needed for Nausea and Vomiting (N/V). oxybutynin 2-0 Yes [id number] 5mg Take 1 Univers chloride 5 4-08 tablet by ity of mg tablet 00:00: mouth 3 [place] 00 (three) Medical times Branch daily as needed for Bladder spasms. ondansetron 2021-0 Yes [id number] 4mg Take 1 Univers 4 mg 4-08 tablet by ity of disintegrat 00:00: mouth [place] ing tablet 00 every 8 Medica l (eight) Branch hours as needed for Nausea and Vomiting (N/V). oxybutynin 2022-0 Yes [id number] 5mg Take 1 Univers chloride 5 4-08 tablet by ity of mg tablet 00:00: mouth 3 [place] 00 (three) Medical times Branch daily as needed for Bladder spasms. ondansetron 2021-0 Yes [id number] 4mg Take 1 Univers 4 mg 4-08 tablet by ity of disintegrat 00:00: mouth [place] ing tablet 00 every 8 Medica l (eight) Branch hours as needed for Nausea and Vomiting (N/V). oxybutynin 2021-0 Yes [id number] 5mg Take 1 Univers chloride 5 4-08 tablet by ity of mg tablet 00:00: mouth 3 [place] 00 (three) Medical times Branch daily as needed for Bladder spasms. ondansetron 2021-0 Yes [id number] 4mg Take 1 Univers 4 mg 4-08 tablet by ity of disintegrat 00:00: mouth [place] ing tablet 00 every 8 Medica l (eight) Branch hours as needed for Nausea and Vomiting (N/V). oxybutynin 2021-0 Yes [id number] 5mg Take 1 Univers chloride 5 4-08 tablet by ity of mg tablet 00:00: mouth 3 [place] 00 (three) Medical times Branch daily as needed for Bladder spasms. ondansetron 2021-0 Yes [id number] 4mg Take 1 Univers 4 mg 4-08 tablet by ity of disintegrat 00:00: mouth [place] ing tablet 00 every 8 Medica l (eight) Branch hours as needed for Nausea and Vomiting (N/V). oxybutynin 2021-0 2022- No [id number] 5mg Take 1 Univers chloride 5 4-08 07-03 tablet by ity of mg tablet 00:00: 00:00 mouth 3 [place] 00 :00 (three) Medical times Branch daily as needed for Bladder spasms. ondansetron 2021-0 2022- No [id number] 4mg Take 1 Univers 4 mg 4-08 [...] 2021-0 No Unknown 3- 00:00: 00 ketorolac 2021- No 15mg 15 [...] 2022-0 No Unknown 1-19 00:00: 00 morpHINE 1-1 1- No 4mg 4 mg, Slow Un [...] Indication s: acute pain ondansetron 2020-07 Yes [id number] 4mg Take 1 Univers 4 mg 2-09 [...] Indication s: acute pain ondansetron 2020-07 Yes [id number] 4mg Take 1 Univers 4 mg 2-09 [...] Indication s: acute pain ondansetron 2020-07 Yes [id number] 4mg Take 1 Univers 4 mg 2-09 [...] Indication s: acute pain ondansetron 2020-07- No [id number] 4mg Take 1 Univers 4 mg 08-19 [...] 1mg 4 [facility] 2[facility]07 [facility]:00[facility] 150 mg 2-07 tablet [...] 05/30/21 at 1800, Routine iopamidol 2020-07- No [id number] 100mL 100 mL, Univers (ISOVUE 07-30 9109 Intravenou ity o f 370-500 mL) 23:48: 23:48 s, ONCE, 1 [place] injection 00 :00 dose, On Medica l 100 mL Sat Branch 05/30/21 at 1800, Routine ibuprofen 2020-07 Yes [id number] 600mg Take 1 Univers 600 mg 1-20 [id number] tablet by ity of tablet 00:00: mouth [place] 00 every 6 Medical (six) Branch hours as needed for Pain (scale 4-6). traMADoL 50 2020-07 Yes [id number] 50mg Take 1 Univ ers mg tablet 1-20 tablet by ity o f 00:00: mouth [place] 00 every 6 Medical (six) Branch hours as needed for Pain (scale 7-10). Indication s: acute pain ibuprofen 2020-07 Yes [id number] 600mg Take 1 Univers 600 mg -20 [id number] tablet by ity of tablet 00:00: mouth [place] 00 every 6 Medical (six) Branch hours as needed for Pain (scale 4-6). traMADoL 50 2020-07 Yes [id number] 50mg Take 1 Univ ers mg tablet 1-20 tablet by ity o f 00:00: mouth [place] 00 every 6 Medical (six) Branch hours as needed for Pain (scale 7-10). Indication s: acute pain ibuprofen 2020-07 Yes [id number] 600mg Take 1 Univers 600 mg 1-20 [id number] tablet by ity of tablet 00:00: mouth [place] 00 every 6 Medical (six) Branch hours as needed for Pain (scale 4-6). traMADoL 50 2020-07 Yes [id number] 50mg Take 1 Univ ers mg tablet 1-20 tablet by ity o f 00:00: mouth [place] 00 every 6 Medical (six) Branch hours as needed for Pain (scale 7-10). Indication s: acute pain ibuprofen 2020-07 Yes [id number] 600mg Take 1 Univers 600 mg 1-20 [id number] tablet by ity of tablet 00:00: mouth [place] 00 every 6 Medical (six) Branch hours as needed for Pain (scale 4-6). traMADoL 50 2020-07 Yes [id number] 50mg Take 1 Univ ers mg tablet 1-20 tablet by ity o f 00:00: mouth [place] 00 every 6 Medical (six) Branch hours as needed for Pain (scale 7-10). Indication s: acute pain ibuprofen 2020-07 Yes [id number] 600mg Take 1 Univers 600 mg 1-20 [id number] tablet by ity of tablet 00:00: mouth [place] 00 every 6 Medical (six) Branch hours as needed for Pain (scale 4-6). ibuprofen 2020-07 Yes [id number] 600mg Take 1 Univers 600 mg 1-20 [id number] tablet by ity of tablet 00:00: mouth [place] 00 every 6 Medical (six) Branch hours as needed for Pain (scale 4-6). ibuprofen 2020-07- No [id number] 600mg Take 1 Univers 600 mg 1-20 02-16 [id number] tablet by ity o f tablet 00:00: [...] Pain (scale 7-10). Indication s: acute pain [facility] 2020-07 No 1mg mg tablet 07-11 00:00: 00 [facility] 2020-07 No 1mg mg tablet 07-11 00:00: 00 [facility] 2020-07 No 1mg mg tablet 07-11 00:00: 00 [facility] 2020-07 No 1mg mg tablet 07-11 00:00: 00 [facility] 2020-07 No 1mg mg tablet 07-11 00:00: 00 [facility] 2020-07 No 1mg mg tablet 07-11 00:00: 00 [facility] 2020-07 No 1mg mg tablet 07-11 00:00: 00 [facility] 2020-07 No 1mg mg tablet 07-11 00:00: 00 [facility] 2020-07 No 1mg mg tablet 07-11 00:00: [...] 2020-1 No Unknown 0-07 00:00: 00 Tresiba 1-0 [...] 00:00: insulin 100 00 unit/mL (3 mL) [facility] s pen alogliptin 2020-0 No 1mg 25 [...] 00 Tresiba 2021-0 No (3 mL) FlexTouch 9- U-100 00:00: insulin 100 00 unit/mL (3 [...] 00 Janumet XR 1-0 No 1mg 100 - mg-1,000 mg 00:00: tablet,exte 00 nded release [...] 00 hydrochloro 2021-0 No 1mg thiazide 25 -28 mg tablet 00:00: 00 glimepiride 1-0 No 1mg 4 mg tablet 04-07 00:00: 00 Janumet XR 1-0 No 1mg 100 -28 mg-1,000 mg 00:00: tablet,exte 00 nded release amitriptyli 1-0 No 1mg ne 10 mg 04-07 tablet [...] 9-13 00:00: 00 VASCEPA 1 2020-0 Yes [id number] TAKE 3 U nivers gram 9-10 CAPSULES ity of capsule 00:00: BY MOUTH [place] EVERY DAY Medical Branch VASCEPA 1 2020-0 Yes [id number] TAKE 3 U nivers gram 9-10 CAPSULES ity of capsule 00:00: BY MOUTH [place] EVERY DAY Medical Branch VASCEPA 1 2020-0 Yes [id number] TAKE 3 U nivers gram 9-10 CAPSULES ity of capsule 00:00: BY MOUTH [place] EVERY DAY Medical Branch VASCEPA 1 2020-0 Yes [id number] TAKE 3 U nivers gram 9-10 CAPSULES ity of capsule 00:00: BY MOUTH [place] EVERY DAY Medical Branch VASCEPA 1 2020-0 Yes [id number] TAKE 3 U nivers gram 9-10 CAPSULES ity of capsule 00:00: BY MOUTH [place] EVERY DAY Medical Branch VASCEPA 1 2020-0 Yes [id number] TAKE 3 U nivers gram 9-10 CAPSULES ity of capsule 00:00: BY MOUTH [place] EVERY DAY Medical Branch VASCEPA 1 2020-0 Yes [id number] TAKE 3 U nivers gram 9-10 CAPSULES ity of capsule 00:00: BY MOUTH [place] EVERY DAY Medical Branch VASCEPA 1 2020-0 Yes [id number] TAKE 3 U nivers gram 9-10 CAPSULES ity of capsule 00:00: BY MOUTH [place] EVERY DAY Medical Branch VASCEPA 1 2020-0 Yes [id number] TAKE 3 U nivers gram 9-10 CAPSULES ity of capsule 00:00: BY MOUTH [place] EVERY DAY Medical Branch VASCEPA 1 2020-0 Yes [id number] TAKE 3 U nivers gram 9-10 CAPSULES ity of capsule 00:00: BY MOUTH [place] EVERY DAY Medical Branch azithromyci 2021-0 No [...] 00 syrup VASCEPA 1 2021-0 2023- No [id number] TAKE 3 Univers gram 9-10 07-03 CAPSULES [...] 00:00: insulin 100 00 unit/mL (3 mL) [facility] al[facility] 1-0 No 1mg 25 [...] 00 nded release icosapent 2020-0 2020- No [id number] 3g Take 3 Univers ethyL 02 09-10 [...] us 5-27 mouth. ity of acidophilus 17:32: [place] (PROBIOTIC 10 Medical ORAL) [place] MULTIVITAMI 0 Yes Take by Uni vers N ORAL 5-27 mouth. ity of 17:32: [place] [address] Medical Branch multivitami 0 Yes Take by Uni vers n with 5-27 mouth. ity of minerals 17:32: [place] (HAIR,SKIN 10 Medical AND NAILS Branch ORAL) Lactobacill 0 Yes Take by Uni vers us 5-27 mouth. ity of acidophilus 17:32: [place] (PROBIOTIC 10 Medical ORAL) [place] MULTIVITAMI 0 Yes Take by Uni vers N ORAL 5-27 mouth. ity of 17:32: [place] [address] Medical Branch multivitami 0 Yes Take by Uni vers n with 5-27 mouth. ity of minerals 17:32: [place] (HAIR,SKIN 10 Medical AND NAILS Branch ORAL) Lactobacill 0 Yes Take by Uni vers us 5-27 mouth. ity of acidophilus 17:32: [place] (PROBIOTIC 10 Medical ORAL) [place] MULTIVITAMI 0 Yes Take by Uni vers N ORAL 5-27 mouth. ity of 17:32: [place] [address] Medical [place] multivitami 0 Yes Take by Uni vers n with 5-27 mouth. ity of minerals 17:32: [place] (HAIR,SKIN 10 Medical AND NAILS Branch ORAL) [...] by it y of 00:00: 00:00 mouth 00 : (two) Medical times Branch daily with meals. fenofibrate 0 Yes 134mg Take 1 Uni vers micronized 4-30 capsule by ity of 134 mg 00:00: mouth [place] capsule 00 daily. Medical Branch metFORMIN 2020-0 Yes [id number] 1000mg Take 1 Univers 1,000 mg 4-30 tablet by ity of tablet 00:00: mouth 2 (two) Medical times Branch daily with meals. blood sugar 2020-0 Yes [id number] Use daily Univers diagnostic 4-30 Dx E11.65 ity of (ONETOUCH 00:00: [place] VERIO TEST 00 Medical STRIPS) Branch strip lancets 2020-0 Yes [id number] Use daily Univers (ONE TOUCH 4-30 Dx E11.65 ity of DELICA) 33 00:00: [place] [facility] [place] [facility] 00 Medical Branch gabapentin 2020-0 Yes [id number] 600mg Take 1 Univers 600 mg 4-30 tablet by ity of tablet 00:00: mouth 2 (two) Medical times Branch daily. lisinopriL 0 Yes [id number] 2.5mg Take 1 Univers 2.5 mg 4-30 tablet by ity of tablet 00:00: mouth 00 daily. Medical Branch insulin 0 Yes [id number] 35U inject 35 Univers degludec 4-30 Units ity of (TRESIBA 00:00: [place] the [place] FLEXTOUCH 00 skin 2 Medical U-100) 100 (two) Branch unit/mL (3 times mL) InPn daily. fenofibrate 2020-0 Yes 134mg Take 1 Uni vers micronized 4-30 capsule by ity of 134 mg 00:00: mouth [place] capsule 00 daily. Medical Branch metFORMIN 2020-0 Yes [id number] 1000mg Take 1 Univers 1,000 mg 4-30 tablet by ity of tablet 00:00: mouth 2 (two) Medical times Branch daily with meals. blood sugar 2020-0 Yes [id number] Use daily Univers diagnostic 4-30 Dx E11.65 ity of (ONETOUCH 00:00: [place] VERIO TEST 00 Medical STRIPS) Branch strip lancets 2020-0 Yes [id number] Use daily Univers (ONE TOUCH 4-30 Dx E11.65 ity of DELICA) 33 00:00: [place] gauge Misc 00 Medical Branch lisinopriL 2021-0 Yes [id number] 2.5mg Take 1 Univers 2.5 mg 4-30 tablet by ity of tablet 00:00: mouth [place] 00 daily. Medical Branch atorvastati Yes 40mg Take 1 Univ ers n 40 mg 4-30 tablet by ity of tablet 00:00: mouth at [place] 00 bedtime. Medical Branch fenofibrate Yes 134mg Take 1 Uni vers micronized 4-30 capsule by ity of 134 mg 00:00: mouth [place] capsule 00 daily. Medical Branch metFORMIN Yes [id number] 1000mg Take 1 Univers 1,000 mg 4-30 tablet by ity of tablet 00:00: mouth 2 [place] 00 (two) Medical times Branch daily with meals. blood sugar Yes [id number] Use daily Univers diagnostic 4-30 Dx E11.65 ity of (ONETOUCH 00:00: [place] VERIO TEST 00 Medical STRIPS) Branch strip lancets Yes [id number] Use daily Univers (ONE TOUCH 4-30 Dx E11.65 ity of DELICA) 33 00:00: [place] gauge Misc 00 Medical Branch gabapentin Yes [id number] 600mg Take 1 Univers 600 mg 4-30 tablet by ity of tablet 00:00: mouth 2 [place] 00 (two) Medical times Branch daily. lisinopriL Yes [id number] 2.5mg Take 1 Univers 2.5 mg 4-30 tablet by ity of tablet 00:00: mouth [place] 00 daily. Medical Branch insulin Yes [id number] 35U inject 35 [facility] degludec 4-30 Units ity of (TRESIBA 00:00: under the [place] FLEXTOUCH 00 skin 2 Medical U-100) 100 (two) Branch unit/mL (3 times mL) InPn daily. atorvastati Yes 40mg Take 1 Univ ers n 40 mg 4-30 tablet by ity of tablet 00:00: mouth at [place] 00 bedtime. Medical Branch fenofibrate Yes 134mg Take 1 Uni vers micronized 4-30 capsule by ity of 134 mg 00:00: mouth [place] capsule 00 daily. Medical Branch metFORMIN Yes [id number] 1000mg Take 1 Univers 1,000 mg 4-30 tablet by ity of tablet 00:00: mouth 2 (two) Medical times Branch daily with meals. blood sugar 0 Yes [id number] Use daily Univers diagnostic 4-30 Dx E11.65 ity of (ONETOUCH 00:00: [place] VERIO TEST 00 Medical STRIPS) Branch strip lancets 2020-0 Yes [id number] Use daily Univers (ONE TOUCH 4-30 Dx E11.65 ity of DELICA) 33 00:00: [place] [facility] Branch gabapentin 0 Yes [id number] 600mg Take 1 Univers 600 mg 4-30 tablet by ity of tablet 00:00: mouth 2 (two) Medical times Branch daily. lisinopriL Yes [id number] 2.5mg Take 1 Univers 2.5 mg 4-30 tablet by ity of tablet 00:00: mouth daily. Medical Branch insulin Yes [id number] 35U inject 35 [facility] degludec 4-30 Units ity of (TRESIBA 00:00: under the [place] FLEXTOUCH 00 skin 2 Medical U-100) 100 (two) Branch unit/mL (3 times mL) InPn daily. atorvastati Yes 40mg Take 1 Univ ers n 40 mg 4-30 tablet by ity of tablet 00:00: mouth at [place] bedtime. Medical Branch fenofibrate 0 Yes 134mg Take 1 Uni vers micronized 4-30 capsule by ity of 134 mg 00:00: mouth [place] capsule 00 daily. Medical Branch metFORMIN Yes [id number] 1000mg Take 1 Univers 1,000 mg 4-30 tablet by ity of tablet 00:00: mouth 2 (two) Medical times Branch daily with meals. blood sugar 0 Yes [id number] Use daily [facility] diagnostic 4-30 Dx E11.65 ity of (ONETOUCH 00:00: [place] VERIO TEST 00 Medical STRIPS) Branch strip lancets 2020-0 Yes [id number] Use daily [facility] (ONE TOUCH 4-30 Dx E11.65 ity of DELICA) 33 00:00: [place] gauge Misc 00 Medical Branch gabapentin 2020-0 Yes [id number] 600mg Take 1 [facility] 600 mg 4-30 tablet by ity of tablet 00:00: mouth 2 (two) Medical times Branch daily. lisinopriL Yes [id number] 2.5mg Take 1 [facility] 2.5 mg 4-30 tablet by ity of tablet 00:00: mouth [place] 00 daily. Medical Branch insulin Yes [id number] 35U inject 35 [facility] degludec 4-30 Units ity of (TRESIBA 00:[place]LE[place] skin 2 Medical U-100) 100 (two) Branch unit/mL (3 times mL) InPn daily. atorvastati Yes 40mg Take 1 Univ ers n 40 mg 4-30 tablet by ity of tablet 00:00: mouth at [place] 00 bedtime. Medical Branch fenofibrate Yes 134mg Take 1 Uni vers micronized 4-30 capsule by ity of 134 mg 00:00: mouth [place] [facility] 00 daily. Medical Branch metFORMIN Yes [id number] 1000mg Take 1 [facility] 1,000 mg 4-30 tablet by ity of tablet 00:00: mouth 2 [place] 00 (two) Medical times Branch daily with meals. blood sugar Yes [id number] Use daily [facility] diagnostic 4-30 Dx E11.65 ity of (ONETOUCH 00:00: [place] VERIO TEST 00 Medical STRIPS) Branch strip lancets Yes [id number] Use daily [facility] (ONE TOUCH 4-30 Dx E11.65 ity of DELICA) 33 00:00: [place] gauge Misc 00 Medical Branch gabapentin Yes [id number] 600mg Take 1 [facility] 600 mg 4-30 tablet by ity of tablet 00:00: mouth 2 [place] 00 (two) Medical times Branch daily. lisinopriL Yes [id number] 2.5mg Take 1 [facility] 2.5 mg 4-30 tablet by ity of tablet 00:00: mouth [place] 00 daily. Medical Branch insulin Yes [id number] 35U inject 35 [facility] degludec 4-30 Units ity of (TRESIBA 00:00: [place]LE[place] skin 2 Medical U-100) 100 (two) Branch unit/mL (3 times mL) InPn daily. atorvastati 0 Yes 40mg Take 1 Univ ers n 40 mg 4-30 tablet by ity of tablet 00:00: mouth at [place] 00 bedtime. Medical Branch fenofibrate Yes 134mg Take 1 Uni vers micronized 4-30 capsule by ity of 134 mg 00:00: mouth [place] capsule 00 daily. Medical Branch metFORMIN Yes [id number] 1000mg Take 1 [facility] 1,000 mg 4-30 tablet by ity of tablet 00:00: mouth 2 (two) Medical times Branch daily with meals. blood sugar 0 Yes [id number] Use daily [facility] diagnostic 4-30 Dx E11.65 ity of (ONETOUCH 00:00: [place] VERIO TEST 00 Medical STRIPS) Branch strip lancets Yes [id number] Use daily [facility] (ONE TOUCH 4-30 Dx E11.65 ity of DELICA) 33 00:00: [place] gauge Misc 00 Medical Branch gabapentin Yes [id number] 600mg Take 1 [facility] 600 mg 4-30 tablet by ity of tablet 00:00: mouth 2 (two) Medical times Branch daily. lisinopriL Yes [id number] 2.5mg Take 1 [facility] 2.5 mg 4-30 tablet by ity of tablet 00:00: mouth [place] 00 daily. Medical Branch insulin Yes [id number] 35U inject 35 [facility] degludec 4-30 Units ity of (TRESIBA 00:[place]: [place]LE[place] skin 2 Medical U-100) 100 (two) Branch unit/mL (3 times mL) InPn daily. atorvastati Yes 40mg Take 1 Univ ers n 40 mg 4-30 tablet by ity of tablet 00:00: mouth at [place] 00 bedtime. Medical Branch fenofibrate Yes 134mg Take 1 Uni vers micronized 4-30 capsule by ity of 134 mg 00:00: mouth [place] capsule 00 daily. Medical Branch metFORMIN 0 Yes [id number] 1000mg Take 1 [facility] 1,000 mg 4-30 tablet by ity of tablet 00:00: mouth 2 [place] (two) Medical times Branch daily with meals. blood sugar Yes [id number] Use daily [facility] diagnostic 4-30 Dx E11.65 ity of (ONETOUCH 00:00: [place] VERIO TEST 00 Medical STRIPS) Branch strip lancets Yes [id number] Use daily [facility] (ONE TOUCH 4-30 Dx E11.65 ity of DELICA) 33 00:00: [facility] Medical Branch gabapentin Yes [id number] 600mg Take 1 [facility] 600 mg 4-30 tablet by ity of tablet 00:00: mouth 2 (two) Medical times Branch daily. lisinopriL Yes [id number] 2.5mg Take 1 [facility] 2.5 mg 4-30 tablet by ity of tablet 00:00: mouth daily. Medical Branch insulin Yes [id number] 35U inject 35 [facility] degludec 4-30 Units ity of (TRESIBA 00:00: [place]LE[place] skin 2 Medical U-100) 100 (two) Branch unit/mL (3 times mL) InPn daily. atorvastati Yes 40mg Take 1 Univ ers n 40 mg 4-30 tablet by ity of tablet 00:00: mouth at [place] bedtime. Medical Branch fenofibrate Yes 134mg Take 1 Uni vers micronized 4-30 capsule by ity of 134 mg 00:00: mouth [place] capsule daily. Medical Branch metFORMIN Yes [id number] 1000mg Take 1 [facility] 1,000 mg 4-30 tablet by ity of tablet 00:00: mouth [place] (two) Medical times Branch daily with meals. blood sugar Yes [id number] Use daily [facility] diagnostic 4-30 Dx E11.65 ity of (ONETOUCH 00:00: [place] VERIO TEST 00 Medical STRIPS) Branch strip lancets Yes [id number] Use daily [facility] (ONE TOUCH 4-30 Dx E11.65 ity of DELICA) 33 00:00: [facility] Medical Branch gabapentin 0 Yes [id number] 600mg Take 1 [facility] 600 mg 4-30 tablet by ity of tablet 00:00: mouth 2 (two) Medical times Branch daily. lisinopriL Yes [id number] 2.5mg Take 1 [facility] 2.5 mg 4-30 tablet by ity of tablet 00:00: mouth 00 daily. Medical Branch fenofibrate 2021-0 Yes 134mg Take 1 Uni vers micronized 4-30 capsule by ity of 134 mg 00:00: mouth [place] capsule 00 daily. Medical Branch metFORMIN 0 Yes [id number] 1000mg Take 1 [facility] 1,000 mg 4-30 tablet by ity of tablet 00:00: mouth 2 (two) Medical times Branch daily with meals. blood sugar 0 Yes [id number] Use daily [facility] diagnostic 4-30 Dx E11.65 ity of (ONETOUCH 00:00: [place] VERIO TEST 00 Medical STRIPS) Branch strip lancets 0 Yes [id number] Use daily [facility] (ONE TOUCH 4-30 Dx E11.65 ity of DELICA) 33 00:00: [place] [facility] 00 Medical Branch gabapentin 0 Yes [id number] 600mg Take 1 [facility] 600 mg 4-30 tablet by ity of tablet 00:00: mouth 2 (two) Medical times Branch daily. lisinopriL Yes [id number] 2.5mg Take 1 [facility] 2.5 mg 4-30 tablet by ity of tablet 00:00: mouth 00 daily. Medical Branch fenofibrate Yes 134mg Take 1 Uni vers micronized 4-30 capsule by ity of 134 mg 00:00: mouth [place] capsule 00 daily. Medical Branch metFORMIN 0 Yes [id number] 1000mg Take 1 [facility] 1,000 mg 4-30 tablet by ity of tablet 00:00: mouth 2 (two) Medical times Branch daily with meals. blood sugar 0 Yes [id number] Use daily [facility] diagnostic 4-30 Dx E11.65 ity of (ONETOUCH 00:00: [place] VERIO TEST 00 Medical STRIPS) Branch strip lancets 2020-0 Yes [id number] Use daily [facility] (ONE TOUCH 4-30 Dx E11.65 ity of DELICA) 33 00:00: [place] [facility] 00 Medical Branch gabapentin 2020-0 Yes [id number] 600mg Take 1 [facility] 600 mg 4-30 tablet by ity of tablet 00:00: mouth 2 (two) Medical times Branch daily. lisinopriL 2020-0 Yes [id number] 2.5mg Take 1 [facility] 2.5 mg 4-30 tablet by ity of tablet 00:00: mouth [place] 00 daily. Medical Branch gabapentin 2022- No [id number] 600mg Take 1 [facility] 600 mg 11-07-03 tablet by ity of tablet 00:00: 00:00 mouth 2 [place] 00 :00 (two) Medical times Branch daily. insulin 2022- No [id number] 35U inject 35 [facility] degludec 30 02-20 [...] 2020-0 No Unknown 3-18 00:00: 00 Tresiba 2020-0 No 30(3 FlexTouch 3-18 mL) [...] mg-160 1-05 mg tablet 00:00: 00 Pyridium 2019- No 1mg 100 mg 1-05 tablet 00:00: [...] atorvastati 2020-0 No 1mg n 40 mg 03-10 tablet 00:00: 00 gabapentin 2020-0 [...] subcutaneou s pen Victoza 2020-0 No (18 3-Christfoer 0.6 7-27 mg/3 mg/0.1 mL 00:00: mL) [...] 00 mL) subcutane s pen injector Tresiba 2020-0 No 30(3 FlexTouch 6-10 mL) U-100 00:00: insulin 100 00 unit/mL (3 mL) subcutaneou s pen Tresiba 2020-0 No 30(3 FlexTouch 6-10 mL) U-100 00:00: insulin 100 00 [facility]mL [facility]3 [facility]0 No 1mg 5 [...] mL 00:00: mL) (18 mg/3 00 mL) [facility] Victoza 2020-0 No (18 3-Christofer 0.6 6-10 mg/3 mg/0.1 mL 00:00: mL) (18 mg/3 00 mL[facility] Tresiba 2020-0 No 30(3 [...] lisinopril 2020-0 No 1mg 5 mg tablet 10 00:00: 00 metformin 2020-0 No 1mg 1,000 [...] MV,CA,MIN/I 2020-0 Yes Take by Met hodi SNUNY/FA/GUAR 5-[address] [facility] 11:53: Hospita (ONE-A-DAY 29 l WOMEN'S ACTIVE ORAL) MV,CA,MIN/I 2020-0 Yes Take by Met hodi SUNNY/FA/GUAR 5-[address] [facility]FF 11:53: Hospita (ONE-A-DAY 29 l WOMEN'S ACTIVE ORAL) MV,CA,MIN/I 2020-0 Yes Take by Met hodi SUNNY/FA/GUAR 5-14 mouth. [facility] 11:53: Hospita (ONE-A-DAY 29 l WOMEN'S ACTIVE ORAL) MV,CA,MIN/I 2020-0 Yes Take by Met hodi SUNNY/FA/GUAR 5-14 mouth. [facility] 11:53: Hospita (ONE-A-DAY 29 l WOMEN'S ACTIVE ORAL) MV,CA,MIN/I 2020-0 Yes Take by Met hodi SUNNY/FA/GUAR 5-14 mouth. [facility] 11:53: Hospita (ONE-A-DAY 29 l WOMEN'S ACTIVE ORAL) MV,CA,MIN/I 2020-0 Yes Take by Met hodi SUNNY/FA/GUAR 5-14 mouth. [facility] 11:53: Hospita (ONE-A-DAY 29 l WOMEN'S ACTIVE ORAL) MV,CA,MIN/I 2020-0 Yes Take by Met hodi SUNNY/FA/GUAR 5-14 mouth. [facility] 11:53: Hospita (ONE-A-DAY 29 l WOMEN'S ACTIVE ORAL) MV,CA,MIN/I 2020-0 Yes Take by Met hodi SUNNY/FA/GUAR 5-14 mouth. [facility] 11:53: Hospita (ONE-A-DAY 29 l WOMEN'S ACTIVE ORAL) MV,CA,MIN/I 2020-0 Yes Take by Met hodi SUNNY/FA/GUAR 5-14 mouth. [facility] 11:53: Hospita (ONE-A-DAY 29 l WOMEN'S ACTIVE ORAL) MV,CA,MIN/I 2020-0 Yes Take by Met hodi SUNNY/FA/GUAR 5-14 mouth. [facility] 11:53: Hospita (ONE-A-DAY 29 l WOMEN'S ACTIVE ORAL) MV,CA,MIN/I 2020-0 Yes Take by Met hodi SUNNY/FA/GUAR 5-14 mouth. [facility] 11:53: Hospita (ONE-A-DAY 29 l WOMEN'S ACTIVE ORAL) MV,CA,MIN/I 2020-0 Yes Take by Met hodi SUNNY/FA/GUAR 5-14 mouth. [facility] 11:53: Hospita (ONE-A-DAY 29 l WOMEN'S ACTIVE ORAL) MV,CA,MIN/I 2020-0 Yes Take by Met hodi SUNNY/FA/GUAR 5-14 mouth. [facility] 11:53: Hospita (ONE-A-DAY 29 l WOMEN'S ACTIVE ORAL) MV,CA,MIN/I 2020-0 Yes Take by Met hodi SUNNY/FA/GUAR 5-14 mouth. [facility] 11:53: Hospita (ONE-A-DAY 29 l WOMEN'S ACTIVE ORAL) MV,CA,MIN/I 2020-0 Yes Take by Met hodi SUNNY/FA/GUAR 5-14 mouth. [facility] 11:53: Hospita (ONE-A-DAY 29 l WOMEN'S ACTIVE ORAL) MV,CA,MIN/I 2020-0 Yes Take by Met hodi SUNNY/FA/GUAR 5-14 mouth. [facility] 11:53: Hospita (ONE-A-DAY 29 l WOMEN'S ACTIVE ORAL) MV,CA,MIN/I 2020-0 Yes Take by Met hodi SUNNY/FA/GUAR 5-14 mouth. [facility] 11:53: Hospita (ONE-A-DAY 29 l WOMEN'S ACTIVE ORAL) MV,CA,MIN/I 2020-0 Yes Take by Met hodi SUNNY/FA/GUAR 5-14 mouth. [facility] 11:53: Hospita (ONE-A-DAY 29 l WOMEN'S ACTIVE ORAL) MV,CA,MIN/I 2020-0 Yes Take by Met hodi SUNNY/FA/GUAR 5-14 mouth. [facility] 11:53: Hospita (ONE-A-DAY 29 l WOMEN'S ACTIVE ORAL) MV,CA,MIN/I 2020-0 Yes Take by Met hodi SUNNY/FA/GUAR 5-14 mouth. [facility] 11:53: Hospita (ONE-A-DAY 29 l WOMEN'S ACTIVE ORAL) MV,CA,MIN/I 2020-0 Yes Take by Met hodi SUNNY/FA/GUAR 5-14 mouth. [facility] 11:53: Hospita (ONE-A-DAY 29 l WOMEN'S ACTIVE ORAL) MV,CA,MIN/I 2020-0 Yes Take by Met hodi SUNNY/FA/GUAR 5-14 mouth. [facility] 11:53: Hospita (ONE-A-DAY 29 l WOMEN'S ACTIVE [...] lisinopril 2020-0 No 1mg 5 mg tablet - 00:00: 00 lisinopril 2020-0 No 1mg 5 mg tablet - 00:00: 00 lisinopril 2020-0 No 1mg 5 mg tablet -12 00:00: 00 nystatin-tr 2020-0 Yes [id number] Q.25D Apply [facility] iamcinolone 4-[address] (MYCOLOG 00:00: 4 (four) Hospi ta II) 00 times a l 100,000-0.1 day as unit/g-% needed cream (vaginal itching or infection) . To outer vagina nystatin-tr 2020-0 Yes [id number] Q.25D Apply [facility] iamcinolone 4-[address] (MYCOLOG 00:00: 4 (four) Hospi ta II) 00 times a l 100,000-0.1 day as unit/g-% needed cream (vaginal itching or infection) . To outer vagina nystatin-tr 2020-0 Yes [id number] Q.25D Apply [facility] iamcinolone 4-[address] (MYCOLOG 00:00: 4 (four) Hospi ta II) 00 times a l 100,000-0.1 day as unit/g-% needed cream (vaginal itching or infection) . To outer vagina nystatin-tr 2020-0 Yes [id number] Q.25D Apply [facility]i iamcinolone 4-[address] (MYCOLOG 00:00: 4 (four) Hospi ta II) 00 times a l 100,000-0.1 day as unit/g-% needed cream (vaginal itching or infection) . To outer vagina nystatin-tr 2020-0 Yes [id number] Q.25D Apply [facility] iamcinolone 4-[address] (MYCOLOG 00:00: 4 (four) Hospi ta II) 00 times a l 100,000-0.1 day as unit/g-% needed cream (vaginal itching or infection) . To outer vagina nystatin-tr 2020-0 Yes [id number] Q.25D Apply [facility]i iamcinolone 4-[address] (MYCOLOG 00:00: 4 (four) Hospi ta II) 00 times a l 100,000-0.1 day as unit/g-% needed cream (vaginal itching or infection) . To outer vagina nystatin-tr 2020-0 Yes [id number] Q.25D Apply [facility] iamcinolone 4-[address] (MYCOLOG 00:00: 4 (four) Hospi ta II) 00 times a l 100,000-0.1 day as unit/g-% needed cream (vaginal itching or infection) . To outer vagina nystatin-tr 2020-0 Yes [id number] Q.25D Apply [facility]i iamcinolone 4-[address] (MYCOLOG 00:00: 4 (four) Hospi ta II) 00 times a l 100,000-0.1 day as unit/g-% needed cream (vaginal itching or infection) . To outer vagina nystatin-tr 2020-0 Yes [id number] Q.25D Apply [facility]i iamcinolone 4-[address] (MYCOLOG 00:00: 4 (four) Hospi ta II) 00 times a l 100,000-0.1 day as unit/g-% needed cream (vaginal itching or infection) . To outer vagina nystatin-tr 2020-0 Yes [id number] Q.25D Apply [facility]i iamcinolone 4-[address] (MYCOLOG 00:00: 4 (four) Hospi ta II) 00 times a l 100,000-0.1 day as unit/g-% needed cream (vaginal itching or infection) . To outer vagina nystatin-tr 2020-0 Yes [id number] Q.25D Apply [facility]i iamcinolone 4-[address] (MYCOLOG 00:00: 4 (four) Hospi ta II) 00 times a l 100,000-0.1 day as unit/g-% needed cream (vaginal itching or infection) . To outer vagina nystatin-tr 2020-0 Yes [id number] Q.25D Apply [facility]i iamcinolone 4-[address] (MYCOLOG 00:00: 4 (four) Hospi ta II) 00 times a l 100,000-0.1 day as unit/g-% needed cream (vaginal itching or infection) . To outer vagina nystatin-tr 2020-0 Yes [id number] Q.25D Apply [facility]i iamcinolone 4-[address] (MYCOLOG 00:00: 4 (four) Hospi ta II) 00 times a l 100,000-0.1 day as unit/g-% needed cream (vaginal itching or infection) . To outer vagina nystatin-tr 2020-0 Yes [id number] Q.25D Apply [facility] iamcinolone 4-[address] (MYCOLOG 00:00: 4 (four) Hospi ta II) 00 times a l 100,000-0.1 day as unit/g-% needed cream (vaginal itching or infection) . To outer vagina nystatin-tr 2020-0 Yes [id number] Q.25D Apply [facility]i iamcinolone 4-[address] (MYCOLOG 00:00: 4 (four) Hospi ta II) 00 times a l 100,000-0.1 day as unit/g-% needed cream (vaginal itching or infection) . To outer vagina nystatin-tr 2020-0 Yes [id number] Q.25D Apply [facility] iamcinolone 4-[address] (MYCOLOG 00:00: 4 (four) Hospi ta II) 00 times a l 100,000-0.1 day as unit/g-% needed cream (vaginal itching or infection) . To outer vagina nystatin-tr 2020-0 Yes [id number] Q.25D Apply Methodi iamcinolone 4-[address] (MYCOLOG 00:00: 4 (four) Hospi ta II) 00 times a l 100,000-0.1 day as unit/g-% needed cream (vaginal itching or infection) . To outer vagina nystatin-tr 2020-0 Yes [id number] Q.25D Apply [facility]i iamcinolone 4-[address] (MYCOLOG 00:00: 4 (four) Hospi ta II) 00 times a l 100,000-0.1 day as unit/g-% needed cream (vaginal itching or infection) . To outer vagina nystatin-tr 2020-0 Yes [id number] Q.25D Apply [facility]i iamcinolone 4-[address] (MYCOLOG 00:00: 4 (four) Hospi ta II) 00 times a l 100,000-0.1 day as unit/g-% needed cream (vaginal itching or infection) . To outer vagina nystatin-tr 2020-0 Yes [id number] Q.25D Apply Methodi iamcinolone 4-[address] (MYCOLOG 00:00: 4 (four) Hospi ta II) 00 times a l 100,000-0.1 day as unit/g-% needed cream (vaginal itching or infection) . To outer vagina nystatin-tr 2020-0 Yes [id number] Q.25D Apply [facility]i iamcinolone 4-[address] (MYCOLOG 00:00: 4 (four) Hospi ta II) 00 times a l 100,000-0.1 day as unit/g-% needed cream (vaginal itching or infection) . To outer vagina nystatin-tr 2020-0 Yes [id number] Q.25D Apply [facility] iamcinolone 4-[address] [...] mg (2 00:00: mL) mg/1.5 mL) 00 subcutane s pen injector [...] 0.5 mg (2 00:00: mg/1.5 mL) 00 [place] pen injector Ozempic 2020-0 No (5)/125 0.25 mg or 3-30 -30(10) 0.5 mg (2 00:00: mg/1.5 mL) 00 subcutacox [place] pen injector Ozempic 2020-0 No (5)/125 0.25 mg or 3-30 -30(10) 0.5 mg (2 00:00: mg/1.5 mL) 00 subcutacox [place] pen injector Ozempic 2020-0 No (5)/125 [...] subcutane s pen injector HEParin 2020-0 Yes [id number] Q7D Meth ally (porcine) 3-24 st injection 17:00: Hospita 20,000 00 l Units HEParin 2020-0 Yes [id number] Q7D Meth ally (porcine) 3-24 st injection 17:00: Hospita 20,000 00 l Units HEParin 2020-0 Yes [id number] Q7D Meth ally (porcine) 3-24 st injection 17:00: Hospita 20,000 00 l Units HEParin 2020-0 Yes [id number] Q7D Meth ally (porcine) 3-24 st injection 17:00: Hospita 20,000 00 l Units HEParin 2020-0 Yes [id number] Q7D Meth ally (porcine) 3-24 st injection 17:00: Hospita 20,000 00 l Units HEParin 2020-0 Yes [id number] Q7D Meth ally (porcine) 3-24 st injection 17:00: Hospita 20,000 00 l Units HEParin 2020-0 Yes [id number] Q7D Meth ally (porcine) 3-24 st injection 17:00: Hospita 20,000 00 l Units HEParin 2020-0 Yes [id number] Q7D Meth ally (porcine) 3-24 st injection 17:00: Hospita 20,000 00 l Units HEParin 2020-0 Yes [id number] Q7D Meth ally (porcine) 3-24 st injection 17:00: Hospita 20,000 00 l Units HEParin 2020-0 Yes [id number] Q7D Meth ally (porcine) 3-24 st injection 17:00: Hospita 20,000 00 l Units HEParin 2020-0 Yes [id number] Q7D Meth ally (porcine) 3-24 st injection 17:00: Hospita 20,000 00 l Units HEParin 2020-0 Yes [id number] Q7D Meth ally (porcine) 3-24 st injection 17:00: Hospita 20,000 00 l Units HEParin 2020-0 Yes [id number] Q7D Meth ally (porcine) 3-24 st injection 17:00: Hospita 20,000 00 l Units HEParin 2020-0 Yes [id number] Q7D Meth ally (porcine) 3-24 st injection 17:00: Hospita 20,000 00 l Units HEParin 2020-0 Yes [id number] Q7D Meth ally (porcine) 3-24 st injection 17:00: Hospita 20,000 00 l Units HEParin 2020-0 Yes [id number] Q7D Meth ally (porcine) 3-24 st injection 17:00: Hospita 20,000 00 l Units HEParin 2020-0 Yes [id number] Q7D Meth ally (porcine) 3-24 st injection 17:00: Hospita 20,000 00 l Units HEParin 2020-0 Yes [id number] Q7D Meth ally (porcine) 3-24 st injection 17:00: Hospita 20,000 00 l Units HEParin 2020-0 Yes [id number] Q7D Meth ally (porcine) 3-24 st injection 17:00: Hospita 20,000 00 l Units HEParin 2020-0 Yes [id number] Q7D Meth ally (porcine) 3-24 st injection 17:00: Hospita 20,000 00 l Units HEParin 2020-0 Yes [id number] Q7D Meth ally (porcine) 3-24 st injection 17:00: Hospita 20,000 00 l Units HEParin 2020-0 Yes [id number] Q7D Meth ally (porcine) 3-24 st injection 17:00: Hospita 20,000 00 l Units conjugated 2020-0 Yes [id number] Apply 0.5 [facility] estrogens 3-[address] (Premarin) 00:00: vaginally Ho spita 0.625 00 either l mg/gram internally vaginal (applicato cream r) or with finger to outer vagina twice weekly at night conjugated 2020-0 Yes [id number] Apply 0.5 [facility] estrogens 3-[address] (Premarin) 00:00: vaginally [facility] 0.625 00 either l mg/gram internally vaginal (applicato cream r) or with finger to outer vagina twice weekly at night conjugated 2020-0 Yes [id number] Apply 0.5 [facility] estrogens 3-[address] (Premarin) 00:00: vaginally [facility] 0.625 00 either l mg/gram internally vaginal (applicato cream r) or with finger to outer vagina twice weekly at night conjugated 2020-0 Yes [id number] Apply 0.5 [facility] estrogens 3-[address] (Premarin) 00:00: vaginally [facility] 0.625 00 either l mg/gram internally vaginal (applicato cream r) or with finger to outer vagina twice weekly at night conjugated 2020-0 Yes [id number] Apply 0.5 [facility] estrogens 3-[address] (Premarin) 00:00: vaginally [facility] 0.625 00 either l mg/gram internally vaginal (applicato cream r) or with finger to outer vagina twice weekly at night conjugated 2020-0 Yes [id number] Apply 0.5 [facility] estrogens 3-[address] (Premarin) 00:00: vaginally [facility] 0.625 00 either l mg/gram internally vaginal (applicato cream r) or with finger to outer vagina twice weekly at night conjugated 2020-0 Yes [id number] Apply 0.5 [facility] estrogens 3-[address] (Premarin) 00:00: vaginally [facility] 0.625 00 either l mg/gram internally vaginal (applicato cream r) or with finger to outer vagina twice weekly at night conjugated 2020-0 Yes [id number] Apply 0.5 [facility] estrogens 3-[address] (Premarin) 00:00: vaginally [facility] 0.625 00 either l mg/gram internally vaginal (applicato cream r) or with finger to outer vagina twice weekly at night conjugated 2020-0 Yes [id number] Apply 0.5 [facility] estrogens 3-[address] (Premarin) 00:00: vaginally [facility] 0.625 00 either l mg/gram internally vaginal (applicato cream r) or with finger to outer vagina twice weekly at night conjugated 2020-0 Yes [id number] Apply 0.5 [facility] estrogens 3-[address] (Premarin) 00:00: vaginally [facility] 0.625 00 either l mg/gram internally vaginal (applicato cream r) or with finger to outer vagina twice weekly at night conjugated 2020-0 Yes [id number] Apply 0.5 [facility] estrogens 3-[address] (Premarin) 00:00: vaginally [facility] 0.625 00 either l mg/gram internally vaginal (applicato cream r) or with finger to outer vagina twice weekly at night conjugated 2020-0 Yes [id number] Apply 0.5 [facility] estrogens 3-[address] (Premarin) 00:00: vaginally [facility] 0.625 00 either l mg/gram internally vaginal (applicato cream r) or with finger to outer vagina twice weekly at night conjugated 2020-0 Yes [id number] Apply 0.5 [facility] estrogens 3-[address] (Premarin) 00:00: vaginally [facility] sp[facility] 0.625 00 either l mg/gram internally vaginal (applicato cream r) or with finger to outer vagina twice weekly at night conjugated 2020-0 Yes [id number] Apply 0.5 [facility] estrogens 3-[address] (Premarin) 00:00: vaginally [facility] 0.625 00 either l mg/gram internally vaginal (applicato cream r) or with finger to outer vagina twice weekly at night conjugated 2020-0 Yes [id number] Apply 0.5 [facility] estrogens 3-[address] (Premarin) 00:00: vaginally [facility] 0.625 00 either l mg/gram internally vaginal (applicato cream r) or with finger to outer vagina twice weekly at night conjugated 2020-0 Yes [id number] Apply 0.5 [facility] estrogens 3-[address] (Premarin) 00:00: vaginally [facility] 0.625 00 either l mg/gram internally vaginal (applicato cream r) or with finger to outer vagina twice weekly at night conjugated 2020-0 Yes [id number] Apply 0.5 [facility] estrogens 3-[address] (Premarin) 00:00: vaginally [facility] 0.625 00 either l mg/gram internally vaginal (applicato cream r) or with finger to outer vagina twice weekly at night conjugated 2020-0 Yes [id number] Apply 0.5 [facility]i estrogens 3-[address] (Premarin) 00:00: vaginally [facility] sp[facility] 0.625 00 either l mg/gram internally vaginal (applicato cream r) or with finger to outer vagina twice weekly at night conjugated 2020-0 Yes [id number] Apply 0.5 [facility] estrogens 3-[address] (Premarin) 00:00: vaginally [facility] sp[facility] 0.625 00 either l mg/gram internally vaginal (applicato cream r) or with finger to outer vagina twice weekly at night conjugated 2020-0 Yes [id number] Apply 0.5 [facility] estrogens 3-[address] (Premarin) 00:00: vaginally [facility] spita 0.625 00 either l mg/gram internally vaginal (applicato cream r) or with finger to outer vagina twice weekly at night conjugated 2020-0 Yes [id number] Apply 0.5 [facility] estrogens 3-[address] (Premarin) 00:00: vaginally [facility] 0.625 00 either l mg/gram internally vaginal (applicato cream r) or with finger to outer vagina twice weekly at night conjugated 2020-0 Yes [id number] Apply 0.5 [facility] estrogens 3-[address] [...] daily. amb custom 2020-0 Yes [facility] compound 3- vaginal st 00:00: cream: 6% [facility] 00 gabapentin l , 2% Lidocaine, 2 % baclofen in water washable based. Apply 0.5 gram to outer vagina once or twice daily. amb custom 2020-0 Yes [facility] mahesh compound 3- vaginal st 00:00: cream: 6% [facility] 00 gabapentin l , 2% Lidocaine, 2 % baclofen in water washable based. Apply 0.5 gram to outer vagina once or twice daily. amb custom 2020-0 Yes [facility] mahesh compound [address] 00:00: cream: 6% [facility] 00 gabapentin l , 2% Lidocaine, 2 % baclofen in water washable based. Apply 0.5 gram to outer vagina once or twice daily. amb custom 2020-0 Yes [facility] mahesh compound 09-[address] 00:00: cream: 6% [facility] 00 gabapentin l , 2% Lidocaine, 2 % baclofen in water washable based. Apply 0.5 gram to outer vagina once or twice daily. amb custom 2020-0 Yes [facility] mahesh compound 09-[address] 00:00: cream: 6% [facility] 00 gabapentin l , 2% Lidocaine, 2 % baclofen in water washable based. Apply 0.5 gram to outer vagina once or twice daily. amb custom 2020-0 Yes [facility] mahesh compound 3- vaginal st 00:00: cream: 6% [facility] 00 gabapentin l , 2% Lidocaine, 2 % baclofen in water washable based. Apply 0.5 gram to outer vagina once or twice daily. amb custom 2020-0 Yes [facility] aragon compound 3- vaginal st 00:00: cream: 6% [facility] 00 gabapentin l , 2% Lidocaine, 2 % baclofen in water washable based. Apply 0.5 gram to outer vagina once or twice daily. amb custom 2020-0 Yes [facility] mahesh compound [address] 00:00: cream: [...] once or twice daily. FREESTYLE 2020-0 Yes [id number] 1{each} 1 Each [facility] BRENDA 14 3-03 every 14 ity of DAY SENSOR 00:00: [place]fourteen[place] [facility] days. [facility] FREESTYLE 2020-0 Yes [id number] 1{each} 1 Each Univers BRENDA 14 3-03 daily. ity of DAY READER 00:00: [place] [facility] 00 Medical Branch FREESTYLE 2020-0 Yes [id number] 1{each} 1 Each [facility] BRENDA 14 3-03 every 14 ity of DAY SENSOR 00:00: (fourteen[place] days. [facility] FREESTYLE 2020-0 Yes [id number] 1{each} 1 Each [facility] BRENDA 14 3-03 daily. ity of DAY READER 00:00: [facility] [place] [facility] 00 Medical Branch FREESTYLE 2020-0 Yes [id number] 1{each} 1 Each [facility] BRENDA 14 3-03 every 14 ity of DAY SENSOR 00:00: (fourteen) [place] [facility] days. [facility] FREESTYLE 2020-0 Yes [id number] 1{each} 1 Each [facility] BRENDA 14 3-03 daily. ity of DAY READER 00:00: [facility] [place] [facility] 00 Medical Branch FREESTYLE 2020-0 Yes [id number] 1{each} 1 Each Univers BRENDA 14 3-03 every 14 ity of DAY SENSOR 00:00: (fourteen) [place] [facility] 00 days. [facility] FREESTYLE 2020-0 Yes [id number] 1{each} 1 Each [facility] BRENDA 14 3-03 daily. ity of DAY READER 00:00: [facility] [place] [facility] 00 Medical Branch FREESTYLE 2020-0 Yes [id number] 1{each} 1 Each Univers BRENDA 14 3-03 every 14 ity of DAY SENSOR 00:00: (fourteen) [place] [facility] 00 days. [facility] FREESTYLE 2020-0 Yes [id number] 1{each} 1 Each [facility] BRENDA 14 3-03 daily. ity of DAY READER 00:00: [facility] 00 Medical Branch FREESTYLE 2020-0 Yes [id number] 1{each} 1 Each Univers BRENDA 14 3-03 every 14 ity of DAY SENSOR 00:00: (fourteen) [place] [facility] 00 days. [facility] FREESTYLE 2020-0 Yes [id number] 1{each} 1 Each [facility] BRENDA 14 3-03 daily. ity of DAY READER 00:00: [facility] [place] [facility] 00 Medical Branch FREESTYLE 2020-0 Yes [id number] 1{each} 1 Each [facility] BRENDA 14 3-03 every 14 ity of DAY SENSOR 00:00: (fourteen) [place] 00 days. [facility] FREESTYLE 2020-0 Yes [id number] 1{each} 1 Each [facility] BRENDA 14 3-03 daily. ity of DAY READER 00:00: [facility] [place] [facility] 00 Medical Branch FREESTYLE 2020-0 Yes [id number] 1{each} 1 Each [facility] BRENDA 14 3-03 every 14 ity of DAY SENSOR 00:00: (fourteen) [place] [facility] 00 days. [facility] FREESTYLE 2020-0 Yes [id number] 1{each} 1 Each [facility] BRENDA 14 3-03 daily. ity of DAY READER 00:00: [facility] [place] [facility] 00 Medical Branch FREESTYLE 2020-0 Yes [id number] 1{each} 1 Each [facility] BRENDA 14 3-03 every 14 ity of DAY SENSOR 00:00: (fourteen) [place] 00 days. [facility] FREESTYLE 2020-0 Yes [id number] 1{each} 1 Each [facility] BRENDA 14 3-03 daily. ity of DAY READER 00:00: [facility] [place] [facility] Medical Branch FREESTYLE 2020-0 Yes [id number] 1{each} 1 Each Univers BRENDA 14 3-03 every 14 ity of DAY SENSOR 00:00: (fourteen) [place] Kit 00 days. [facility] FREESTYLE 2020-0 Yes [id number] 1{each} 1 Each [facility] BRENDA 14 3-03 daily. ity of DAY READER 00:00: [facility] [place] [facility] 00 Medical Branch FREESTYLE 2020-0 Yes [id number] 1{each} 1 Each Univers BRENDA 14 3-03 every 14 ity of DAY SENSOR 00:00: (fourteen) [place] Kit 00 days. [facility] FREESTYLE 2020-0 Yes [id number] 1{each} 1 Each Univers BRENDA 14 3-03 daily. ity of DAY READER 00:00: [facility] [place] [facility] 00 Medical Branch Ozempic 2020-0 No [...] 0.5 mg (2 00:00: [facility].5 mL[facility] 2020-0 No 1mg 5 mg tablet 2-19 00:00: 00 metformin 2020-0 No 1mg 1,000 mg 2-19 tablet 00:00: 00 atorvastati 2020-0 No 1mg n 40 mg 2-19 tablet 00:00: 00 Ozempic 2020-0 No (5)/125 0.25 mg or 2- -30(10) 0.5 mg (2 00:00: mg/1.5 mL) [facility] l[facility] 2020-0 No [...] 0.5 mg (2 00:00: mg/1.5 mL) [facility] l[facility] 2020-0 No 1mg 5 mg tablet 2-19 00:00: 00 metformin 2020-0 No 1mg 1,000 mg 2-19 tablet 00:00: 00 atorvastati 2020-0 No 1mg n 40 mg 2-19 tablet 00:00: 00 Ozempic 2020-0 No (5)/125 0.25 mg or 2- -30(10) 0.5 mg (2 00:00: mg/1.5 mL) [facility] l[facility]op[facility] 2020-0 No [...] tablet 2-30 00:00: 00 traMADol 2018-07 Yes [id number] 50mg Take 1 Uni vers (ULTRAM) 50 2-28 tablet by ity of mg tablet 00:00: mouth [place] 00 every 6 Medical (six) Branch hours as needed for Pain (scale 7-10). ondansetron 2018-07 Yes [id number] 4mg Take 1 Univers (ZOFRAN) 4 2-28 tablet by ity of mg tablet 00:00: mouth [place] 00 every 8 Medical (eight) Branch hours as needed for Nausea and Vomiting (N/V). ondansetron 2018-07 Yes [id number] 4mg Take 1 Univers (ZOFRAN) 4 2-28 tablet by ity of mg tablet 00:00: mouth [place] 00 every 8 Medical (eight) Branch hours as needed for Nausea and Vomiting (N/V). ondansetron 2018-07 Yes [id number] 4mg Take 1 Univers (ZOFRAN) 4 2-28 tablet by ity of mg tablet 00:00: mouth [place] 00 every 8 Medical (eight) Branch hours as needed for Nausea and Vomiting (N/V). ondansetron 2018-07 Yes [id number] 4mg Take 1 Univers (ZOFRAN) 4 2-28 tablet by ity of mg tablet 00:00: mouth [place] 00 every 8 Medical (eight) Branch hours as needed for Nausea and Vomiting (N/V). ondansetron 2018-07 Yes [id number] 4mg Take 1 Univers (ZOFRAN) 4 2-28 tablet by ity of mg tablet 00:00: mouth [place] 00 every 8 Medical (eight) Branch hours as needed for Nausea and Vomiting (N/V). ondansetron 2018-07 Yes [id number] 4mg Take 1 Univers (ZOFRAN) 4 2-28 tablet by ity of mg tablet 00:00: mouth [place] 00 every 8 Medical (eight) Branch hours as needed for Nausea and Vomiting (N/V). ondansetron 2018-07 Yes [id number] 4mg Take 1 Univers (ZOFRAN) 4 2-28 tablet by ity of mg tablet 00:00: mouth [place] 00 every 8 Medical (eight) Branch hours as needed for Nausea and Vomiting (N/V). ondansetron 2018-07- No [id number] 4mg Take 1 Univers (ZOFRAN) 4 2-28 02-16 tablet by ity of mg tablet 00:00: 00:00 mouth [place] 00 :00 every 8 Medical (eight) Branch hours as needed for Nausea and Vomiting (N/V). traMADol 2018-07- No [id number] 50mg Take 1 Un fabiana (ULTRAM) 50 [...] unit-1 00:00: mg/mL eye 00 drops metronidazo 2019- No 1mg le 500 mg [...] mg capsule 00:00: 00 hydrOXYzine 2019-0 Yes [id number] 10mg Take 1 Univers 10 mg 9-13 tablet by ity of tablet 00:00: mouth [place] 00 every 6 Medical (six) Branch hours. hydrOXYzine 2019-0 Yes [id number] 10mg Take 1 Univers 10 mg 9-13 tablet by ity of tablet 00:00: mouth [place] 00 every 6 Medical (six) Branch hours. hydrOXYzine 2019-0 Yes [id number] 10mg Take 1 Univers 10 mg 9-13 tablet by ity of tablet 00:00: mouth [place] 00 every 6 Medical (six) Branch hours. hydrOXYzine 2019-0 Yes [id number] 10mg Take 1 Univers 10 mg 9-13 tablet by ity of tablet 00:00: mouth [place] 00 every 6 Medical (six) Branch hours. hydrOXYzine 2019-0 Yes [id number] 10mg Take 1 Univers 10 mg 9-13 tablet by ity of tablet 00:00: mouth [place] 00 every 6 Medical (six) Branch hours. hydrOXYzine 2019-0 Yes [id number] 10mg Take 1 Univers 10 mg 9-13 tablet by ity of tablet 00:00: mouth [place] 00 every 6 Medical (six) Branch hours. hydrOXYzine 2019-0 Yes [id number] 10mg Take 1 Univers 10 mg 9-13 tablet by ity of tablet 00:00: mouth [place] 00 every 6 Medical (six) Branch hours. hydrOXYzine 2019-0 2023- No [id number] 10mg Take 1 Univers 10 mg 9-13 [...] mg 1-13 tablet 00:00: 00 Lexapro 20 0 No 1mg mg tablet 04-06 00:00: 00 [...] Lexapro 20 2018-0 No 15mg mg tablet 02-23 00:00: 00 Abilify 5 2017-0 No 1mg mg tablet 02-23 00:00: 00 trazodone 2018-0 No 12mg 100 [...] 1mg mg tablet 1-08 00:00: 00 Abilify 2018-0 No 1mg mg [...] mL mg-15 mg/5 00:00: mL syrup loratadine 2017-1 No 1mg 10 mg 2-04 [...] 1mg 150 mg 4 tablet 00:00: 00 Carvedilol 2017-0 2022- No [id number] 6.25mg Take 1 Andreea 6.25 MG 410 09-07 tablet by Seybol d oral Tab 00:00: 00:00 mouth 2 - 00 :00 times Externa daily l (with meals) MethIMAzole 2016-0 2022- No [id number] 10mg Take 1 Andreea 10 MG oral 10 09-07 tablet by Sey bold Tab 00:00: [...] 1-05 mg tablet 00:00: 00 Abilify 5 1 No 1mg mg tablet 2-08 00:00: 00 Abilify 5 1 No 1mg mg tablet 2-08 00:00: 00 [...] mg 5-07 tablet 00:00: 00 Vistaril 50 2015-0 No [...] No 1mg mg capsule 408 00:00: 00 lisinopril 2016-0 No 1mg 5 [...] mg capsule 2- 00:00: 00 Vistaril 50 2015-1 No 1mg mg capsule 2-14 00:00: 00 [...] 1,000 mg 01-15 tablet 00:00: 00 lisinopril 2014-0 No 1mg [...] mg tablet 5- 00:00: 00 Januvia 100 2014-0 No 1mg mg tablet 5- 00:00: 00 [...] 1,000 mg -28 tablet 00:00: 00 glimepiride 2015-0 No 1mg [...] [place] Strips ( Medical TOUCH Branch COMBO) [facility] Lancets & 2013- Yes Univers Blood 2-14 ity of Glucose 00:00: [place] Strips ( Medical TOUCH Branch COMBO) [facility] Lancets & 2013- Yes Univers Blood 2-14 ity of Glucose 00:00: [place] Strips ( Medical TOUCH Branch COMBO) [facility] Lancets & 2013- Yes Univers Blood 2-14 ity of Glucose 00:00: [place] Strips ( Medical TOUCH Branch COMBO) [facility] Lancets & 2013- Yes Univers Blood 2-14 [...] Dose 2022-06-02 Completed Unive rsity of 00:00:00 [facility] Moderna COVID-19 2021-07-24 Completed Vaccine 00:00:00 Moderna [...] Vaccine 00:00:00 Covid-19 Vaccine 2021-07-24 Completed Andreea morseld - [...] Protein, Pf Covid-19 Vaccine 2021-07-24 Completed Andreea casillasbold - Moderna (Spikevax), 00:00:00 Exter nal Mrna-lnp, Florentin Protein, Pf Covid-19 Vaccine 2021-07-24 Completed Andreea casillasborafael - Moderna (Spikevax), 00:00:00 Exter nal Mrna-lnp, Florentin Protein, Pf Pneumococcal 2020-05-21 Completed University o f Polysaccharide, 00:00:00 [place] [facility] PPSV23 (PNEUMOVAX) Branch TDAP 2020-05-21 Completed University of 00:00:00 [facility] Pneumococcal 2020-05-21 Completed University o f Polysaccharide, 00:00:00 [place] [facility] ical PPSV23 (PNEUMOVAX) Branch TDAP 2020-05-21 Completed University of 00:00:00 [facility] Pneumococcal 2020-05-21 Completed University o f Polysaccharide, 00:00:00 [place] [facility] PPSV23 (PNEUMOVAX) Branch TDAP 2020-05-21 Completed University of 00:00:00 [facility] Pneumococcal 2020-05-21 Completed University o f Polysaccharide, 00:00:00 [place] [facility] ical PPSV23 (PNEUMOVAX) Branch TDAP 2020-05-21 Completed University of 00:00:00 [facility] Pneumococcal 2020-05-21 Completed University o f Polysaccharide, 00:00:00 [place] [facility] PPSV23 (PNEUMOVAX) Branch TDAP 2020-05-21 Completed University of 00:00:00 [facility] Pneumococcal 2020-05-21 Completed University o f Polysaccharide, 00:00:00 [place] [facility] PPSV23 (PNEUMOVAX) Branch TDAP 2020-05-21 Completed University of 00:00:00 [facility] Pneumococcal 2020-05-21 Completed University o f Polysaccharide, 00:00:00 [place] [facility] PPSV23 (PNEUMOVAX) Branch TDAP 2020-05-21 Completed University of 00:00:00 [facility] Pneumococcal 2020-05-21 Completed University o f Polysaccharide, 00:00:00 [place] [facility] PPSV23 (PNEUMOVAX) Branch TDAP 2020-05-21 Completed University of 00:00:00 [facility] Pneumococcal 2020-05-21 Completed University o f Polysaccharide, 00:00:00 [place] [facility] PPSV23 (PNEUMOVAX) Branch TDAP 2020-05-21 Completed University of 00:00:00 [facility] Pneumococcal 2020-05-21 Completed University o f Polysaccharide, 00:00:00 [place] [facility] PPSV23 (PNEUMOVAX) Branch TDAP 2020-05-21 Completed University of 00:00:00 [facility] Pneumococcal 2020-05-21 Completed University o f Polysaccharide, 00:00:00 [place] [facility] PPSV23 (PNEUMOVAX) Branch TDAP 2020-05-21 Completed University of 00:00:00 [facility] Pneumococcal Vaccine, 2020-05-21 Completed Spencer sey Seybold [...] External MMR 2013-07-25 Completed University of 00:00:00 [facility] MMR 2013-07-25 Completed University of 00:00:00 [facility] MMR 2013-07-25 Completed University of 00:00:00 [facility] MMR 2013-07-25 Completed University of 00:00:00 [facility] MMR 2013-07-25 Completed University of 00:00:00 [facility] MMR 2013-07-25 Completed University of 00:00:00 [facility] MMR 2013-07-25 Completed University of 00:00:00 [facility] MMR 2013-07-25 Completed University of 00:00:00 [facility] MMR 2013-07-25 Completed University of 00:00:00 [facility] MMR 2013-07-25 Completed University of 00:00:00 [facility] MMR 2013-07-25 Completed University of 00:00:00 [facility] MMR- Measles, Mumps, 2013-07-25 Completed Mildred ey Seybold - Rubella 00:00:00 External MMR- Measles, Mumps, 2013-07-25 Completed Mildred ey Seybold - Rubella 00:00:00 External MMR- Measles, Mumps, 2013-07-25 Completed Mildred ey Seybold - Rubella 00:00:00 External MMR- Measles, Mumps, 2013-07-25 Completed Mildred ey Seybold - Rubella 00:00:00 External TDAP 2013-05-21 Completed University of 00:00:00 [facility] TDAP 2013-05-21 Completed University of 00:00:00 [facility] TDAP 2013-05-21 Completed University of 00:00:00 [facility] TDAP 2013-05-21 Completed University of 00:00:00 [facility] TDAP 2013-05-21 Completed University of 00:00:00 [facility] TDAP 2013-05-21 Completed University of 00:00:00 [facility] TDAP 2013-05-21 Completed University of 00:00:00 [facility] TDAP 2013-05-21 Completed University of 00:00:00 [facility] TDAP 2013-05-21 Completed University of 00:00:00 [facility] TDAP 2013-05-21 Completed University of 00:00:00 [facility] TDAP 2013-05-21 Completed University of 00:00:00 [facility] Tdap- (Boostrix, 2013-05-21 Completed Andreea S eybold - Adacel) 00:00:00 External Tdap- (Boostrix, 2013-05-21 Completed Andreea Rhodes eybold - Adacel) 00:00:00 External Tdap- (Boostrix, 2013-05-21 Completed Andreea S eybold - Adacel) 00:00:00 External Tdap- (Boostrix, 2013-05-21 Completed Andreea S eybold - Adacel) 00:00:00 External Influenza Virus 2013-03-19 Completed Universit y of Vaccine 00:00:00 [facility] Influenza Virus 2013-03-19 Completed Universit y of Vaccine 00:00:00 [facility] Influenza Virus 2013-03-19 Completed Universit y of Vaccine 00:00:00 [facility] Influenza Virus 2013-03-19 Completed Universit y of Vaccine 00:00:00 [facility] Influenza Virus 2013-03-19 Completed Universit y of Vaccine 00:00:00 [facility] Influenza Virus 2013-03-19 Completed Universit y of Vaccine 00:00:00 [facility] Influenza Virus 2013-03-19 Completed Universit y of Vaccine 00:00:00 [facility] Influenza Virus 2013-03-19 Completed Universit y of Vaccine 00:00:00 [facility] Influenza Virus 2013-03-19 Completed Universit y of Vaccine 00:00:00 [facility] Influenza Virus 2013-03-19 Completed Universit y of Vaccine 00:00:00 [facility] Influenza Virus 2013-03-19 Completed Universit y of Vaccine 00:00:00 [facility] Influenza Virus 2013-03-19 Completed Andreea Se ybold - Vaccine, Unspecified 00:00:00 Exte rnal Formulation Influenza Virus 2013-03-19 Completed Andreea Se ybold - Vaccine, Unspecified 00:00:00 Exte rnal Formulation Influenza Virus 2013-03-19 Completed Andreea Se ybold - Vaccine, Unspecified 00:00:00 Exte rnal Formulation Influenza Virus 2013-03-19 Completed Andreea Se ybold - Vaccine, Unspecified 00:00:00 Exte rnal Formulation Rubella 2008-04-17 Completed University of 00:00:00 [facility] Rubella 2008-04-17 Completed University of 00:00:00 [facility] Rubella 2008-04-17 Completed University of 00:00:00 [facility] Rubella 2008-04-17 Completed University of 00:00:00 [facility] Rubella 2008-04-17 Completed University of 00:00:00 [facility] Rubella 2008-04-17 Completed University of 00:00:00 [facility] Rubella 2008-04-17 Completed University of 00:00:00 [facility] Rubella 2008-04-17 Completed University of 00:00:00 [facility] Rubella 2008-04-17 Completed University of 00:00:00 [facility] Rubella 2008-04-17 Completed University of 00:00:00 [facility] Rubella 2008-04-17 Completed University of 00:00:00 [facility] Rubella 2008-04-17 Completed Andreea Godfreyybold - 00:00:00 External Rubella 2008-04-17 Completed Andreea Seybold - 00:00:00 External Rubella 2008-04-17 Completed Andreea Godfreyybold - 00:00:00 External Rubella 2008-04-17 Completed Andreea Godfreyybold - 00:00:00 External TD, NOS 2004-07-11 Completed University of 00:00:00 [facility] Branch TD, NOS 2004-07-11 Completed University of 00:00:00 [facility] Td 2004-07-11 Completed University of 00:00:00 [facility] Branch Td 2004-07-11 Completed University of 00:00:00 [facility] Td 2004-07-11 Completed University of 00:00:00 [facility] Td 2004-07-11 Completed University of 00:00:00 [facility] Td 2004-07-11 Completed University of 00:00:00 [facility] Td 2004-07-11 Completed University of 00:00:00 [facility] Td 2004-07-11 Completed University of 00:00:00 [facility] TD, NOS 2004-07-11 Completed University of 00:00:00 [facility] TD, NOS 2004-07-11 Completed University of 00:00:00 [facility] Tdap- (Boostrix, 2004-07-11 Completed Andreea Rhodes eybold - Adacel) 00:00:00 External Tdap- (Boostrix, 2004-07-11 Completed Andreea Rhodes eybold - Adacel) 00:00:00 External Tdap- (Boostrix, 2004-07-11 Completed Andreea Rhodes eybold - Adacel) 00:00:00 External Tdap- (Boostrix, 2004-07-11 Completed Andreea Rhodes eybold - Adacel) 00:00:00 External Vital Signs Vital Name Observation Time Observation Value Comments Source Systolic blood 2023-02-17 21:28:00 118 mm[Hg] Andreea Traoreold - pressure External Diastolic blood 2023-02-17 21:28:00 60 mm[Hg] Vikram Corona - pressure External Heart rate 2023-02-17 21:28:00 94 /min Andreea Rhodes eybold - External Body temperature 2023-02-17 21:28:00 36.39 Lorenza Mildred ey Seybold - External Respiratory rate 2023-02-17 21:28:00 20 /min Mildred casillas Seybold - External Body height 2023-02-17 21:28:00 162.6 cm Andreea Rhodes eybold - External Body weight 2023-02-17 21:28:00 106.232 kg Andreea Rhodes eybold - External BMI 2023-02-17 21:28:00 40.20 kg/m2 Andreea Rhodes eybold - External Oxygen saturation in 2023-02-17 21:28:00 98 /min Andreea Corona - Arterial blood by External Pulse oximetry Systolic blood 2023-01-12 12:08:00 108 mm[Hg] [facility] Diastolic blood 2023-01-12 12:08:00 66 mm[Hg] [facility]ive [facility] of [facility] Heart rate 2023-01-12 12:08:00 68 /min Universi ty [facility] Body temperature 2023-01-12 12:08:00 36 Lorenza Univ ersity [facility] Respiratory rate 2023-01-12 12:08:00 14 /min [facility] Oxygen saturation in 2023-01-12 12:08:00 96 /min University Arterial blood by [facility] Pulse oximetry Branch Body weight 2023-01-12 08:58:00 105.96 kg Universi [facility] BMI 2023-01-12 08:58:00 40.10 kg/m2 [facility] Body height 2023-01-10 16:47:00 162.6 cm [facility] Systolic blood 2022-12-21 19:08:00 115 mm[Hg] Andreea Seybold - pressure External Diastolic blood 2022-12-21 19:08:00 77 mm[Hg] Vikram isaac Seybold - pressure External Heart rate 2022-12-21 19:08:00 96 /min Andreea Rhodes eybold - External Body temperature 2022-12-21 19:08:00 36.72 Lorenza Mildred casillas Seybold - External Respiratory rate 2022-12-21 19:08:00 18 /min Mildred casillas Seybold - External Body height 2022-12-21 19:08:00 162.6 cm Andreea casillasbold - External Body weight 2022-12-21 19:08:00 104.327 kg Andreea Rhodes eybold - External BMI 2022-12-21 19:08:00 39.48 kg/m2 Andreea Rhodes eybold - External Systolic blood 2022-12-17 19:52:00 120 mm[Hg] Adnreea Seybold - pressure External Diastolic blood 2022-12-17 [...] Body weight 2022-12-17 19:52:00 105.688 kg Andreea Rhodes eybold - External BMI 2022-12-17 19:52:00 39.99 kg/m2 Andreea casillasbold - External Oxygen saturation in 2022-12-17 19:52:00 99 /min Andreea Corona - Arterial blood by External Pulse oximetry Systolic blood 2022-11-03 15:00:00 103 mm[Hg] [facility] Diastolic blood 2022-11-03 15:00:00 72 mm[Hg] Unive rsity [facility] Heart rate 2022-11-03 15:00:00 76 /min [facility] Oxygen saturation in 2022-11-03 15:00:00 96 /min University Arterial blood by [facility] Pulse oximetry Branch Respiratory rate 2022-11-03 14:58:00 14 /min Univ ersity [facility] Body temperature 2022-11-03 13:25:00 37.22 Lorenza Univ ers[facility] Body weight 2022-11-03 13:25:00 99.791 kg [facility] BMI 2022-11-03 13:25:00 37.76 kg/m2 [facility] Systolic blood 2022-10-01 20:47:00 110 mm[Hg] Andreea Seybold - pressure External Diastolic blood 2022-10-01 20:47:00 75 mm[Hg] Kelse y Seybold - pressure External [...] saturation in 2022-10-01 20:47:00 99 /min Andreea Godfreyibisraegan - Arterial blood by External Pulse oximetry [...] Diastolic blood 2022-09-07 20:49:00 68 mm[Hg] Vikram Corona - pressure External Heart rate 2022-09-07 20:49:00 119 /min Andreea casillasborafael - External Body temperature 2022-09-07 20:49:00 37.17 [...] 14:00:00 112 mm[Hg] Univer [facility]ity of pressure [facility] Diastolic blood 2022-08-30 14:00:00 75 mm[Hg] Unive rsity of pressure [facility] Branch Oxygen saturation in 2022-08-30 14:00:00 97 /min University of Arterial blood by [facility] Pulse oximetry Branch Heart rate 2022-08-30 13:00:00 93 /min [facility] Body temperature 2022-08-30 13:00:00 35.83 Lorenza [facility] [place] [facility] Respiratory rate 2022-08-30 13:00:00 15 /min [facility] [place] [facility] Body weight 2022-08-29 12:00:00 112.492 kg [facility] BMI 2022-08-29 12:00:00 42.57 kg/m2 [facility] Body height 2022-08-27 00:21:00 162.6 cm [facility] Systolic blood 2022-06-22 04:59:00 110 mm[Hg] [facility] Diastolic blood 2022-06-22 04:59:00 70 mm[Hg] [facility] Heart rate 2022-06-22 04:59:00 107 /min [facility] Respiratory rate 2022-06-22 04:59:00 22 /min [facility] Oxygen saturation in 2022-06-22 04:59:00 97 /min [facility] [place] [employer] [facility] Body temperature 2022-06-21 23:26:00 37.28 Lorenza [facility] Body height 2022-06-21 23:26:00 162.6 cm [facility] Body weight 2022-06-21 23:26:00 98.431 kg [facility] BMI 2022-06-21 23:26:00 37.25 kg/m2 [facility] Systolic blood 2021-10-17 02:05:00 117 mm[Hg] [facility] Diastolic blood 2021-10-17 02:05:00 63 mm[Hg] [facility] Heart rate 2021-10-17 02:05:00 76 /min [facility] Respiratory rate 2021-10-17 02:05:00 18 /min [facility] Oxygen saturation in 2021-10-17 02:05:00 98 /min [facility] [place] [employer] [facility] Body temperature 2021-10-16 22:30:00 37.33 Lorenza [facility] Body weight 2021-10-16 21:38:00 103.42 kg [facility] BMI 2021-10-16 21:38:00 37.94 kg/m2 [facility] Systolic blood 2021-09-22 17:00:00 108 mm[Hg] [facility] Diastolic blood 2021-09-22 17:00:00 77 mm[Hg] [facility] Heart rate 2021-09-22 17:00:00 90 /min [facility] Oxygen saturation in 2021-09-22 17:00:00 97 /min [facility] [place] [employer] [facility] Respiratory rate 2021-09-22 15:00:00 18 /min [facility] Body temperature 2021-09-22 14:52:00 37.11 Lorenza [facility] Body weight 2021-09-22 14:52:00 103.42 kg [facility] BMI 2021-09-22 14:52:00 37.94 kg/m2 [facility] Systolic blood 2021-06-18 12:00:00 142 mm[Hg] [facility] Diastolic blood 2021-06-18 12:00:00 94 mm[Hg] [facility] Heart rate 2021-06-18 12:00:00 98 /min [facility] Body temperature 2021-06-18 12:00:00 36.56 Lorenza [facility] Respiratory rate 2021-06-18 12:00:00 13 /min [facility] Oxygen saturation in 2021-06-18 12:00:00 95 /min [facility] [place] [facility] Body height 2021-06-18 10:37:00 165.1 cm [facility] Body weight 2021-06-18 10:37:00 107.502 kg [facility] BMI 2021-06-18 10:37:00 39.44 kg/m2 [facility] Systolic blood 2021-05-31 01:34:00 139 mm[Hg] [facility] Diastolic blood 2021-05-31 01:34:00 90 mm[Hg] [facility] Heart rate 2021-05-31 01:34:00 112 /min [facility] Respiratory rate 2021-05-31 01:34:00 20 /min [facility] Oxygen saturation in 2021-05-31 01:34:00 98 /min [facility] [place] [employer] [facility] Body weight 2021-05-30 21:47:00 107.502 kg [facility] BMI 2021-05-30 21:47:00 40.68 kg/m2 [facility] BP Systolic 2022-06-18 10:43:00 118 [...] POCT GLUCOSE (AUTOMATED) 2023-01-12 12:34:00 Gudelia Garcia [facility] LIPASE 2023-01-12 10:11:00 Mary Morrison [facility] BASIC METABOLIC PANEL 2023-01-12 10:11:00 Mary Morrison [facility] (NA, K, CL, CO2, Medical Branch GLUCOSE, BUN, CREATININE, CA) CBC WITH DIFF 2023-01-12 10:11:00 Mary Morrison [facility] POCT GLUCOSE (AUTOMATED) 2023-01-12 02:34:00 Gudelia Garcia [facility] POCT GLUCOSE (AUTOMATED) 2023-01-11 21:20:00 Gudelia Garcia [facility] POCT GLUCOSE (AUTOMATED) 2023-01-11 16:26:00 Gudelia Garcia [facility] POCT GLUCOSE (AUTOMATED) 2023-01-11 12:42:00 Gudelia Garcia [facility] LIPID PANEL 2023-01-11 06:30:00 Gudelia Garcia [facility] ([id number])(TOTAL Medical Branch CHOLESTEROL, TRIGLYCERIDES, HDL) LOW-DENSITY LIPOPROTEIN, 2023-01-11 06:30:00 Gudelia Garcia [facility] DIRECT [facility] POCT GLUCOSE (AUTOMATED) 2023-01-11 02:07:00 Gudelia Garcia [facility] ADC CLC OR LCC ONLY - 2023-01-10 20:13:00 Deya Juarez [facility] WET PREP [facility] HSV 1 AND 2 GLYCOPROTEIN 2023-01-10 20:13:00 Judy Juarez [facility] G IGG [facility] US PELVIS COMPLETE WITH 2023-01-10 20:11:36 Howie Juarez [facility] TRANSVAGINAL [facility] GLYCOSYLATED HEMOGLOBIN 2023-01-10 17:35:00 Gudelia Garcia [facility] (A1C) [facility] CT ABDOMEN PELVIS W 2023-01-10 15:07:29 [facility] CONTRAST [facility] POCT TEST 2023-01-10 13:37:00 [facility] TRIGLYCERIDES 2023-01-10 13:29:00 Ngoc Tinajero [facility] LIPASE 2023-01-10 13:29:00 Lior [facility] COMP. METABOLIC PANEL 2023-01-10 13:29:00 Ngoc Tinajero [facility] ([id number]) Medical Branch CBC WITH DIFF 2023-01-10 13:29:00 Ngoc Tinajero [facility] ASSIGNMENT OF BENEFITS 2023-01-10 12:54:19 Doctor Unassigned, No [facility] URINALYSIS 2023-01-10 12:31:00 Lior [facility] CONSENT/REFUSAL FOR 2023-01-10 12:22:34 [facility], No [facility] Name [facility] REAGENT STRIP/BLOOD 2022-12-21 00:00:00 Outside, Reported Andreea Corona - GLUCOSE External LIPASE 2022-11-03 13:37:00 [facility] HEPATIC FUNCTION PANEL 2022-11-03 13:37:00 [facility] ([id number]) (ALB,T.PRO,BILI Medical Branch T,BU/BC,ALT,AST,ALK PHOS) BASIC METABOLIC PANEL 2022-11-03 13:37:00 [facility] (NA, K, CL, CO2, Medical Branch GLUCOSE, BUN, CREATININE, CA) LIPID PANEL 2022-11-03 13:37:00 [facility] ([id number])(TOTAL Medical Branch CHOLESTEROL, TRIGLYCERIDES, HDL) CBC WITH DIFF 2022-11-03 13:37:[address] [facility] 2022-11-03 13:37:00 [facility] CONSENT/REFUSAL FOR 2022-11-03 13:22:43 Doctor Unassigned, No Un [facility] DIAGNOSIS AND TREATMENT Name [facility] REAGENT STRIP/BLOOD 2022-09-10 00:00:00 Outside, Reported Andreea Corona - GLUCOSE External POCT GLUCOSE (AUTOMATED) 2022-08-30 14:52:00 Meri Wray [facility] POCT GLUCOSE (AUTOMATED) 2022-08-30 13:01:00 Oville, Meri [facility] POCT GLUCOSE (AUTOMATED) 2022-08-30 12:03:00 Oville, Meri [facility] POCT GLUCOSE (AUTOMATED) 2022-08-30 11:04:00 Ovdean, Meri [facility] TRIGLYCERIDES 2022-08-30 10:18:00 Kamala [facility] BASIC METABOLIC PANEL 2022-08-30 10:18:00 Meri Wray [facility] (NA, K, CL, CO2, Medical Branch GLUCOSE, BUN, CREATININE, CA) POCT GLUCOSE (AUTOMATED) 2022-08-30 10:11:00 Ovdean, Meri [facility] POCT GLUCOSE (AUTOMATED) 2022-08-30 09:10:00 Ovdean, Meri [facility] POCT GLUCOSE (AUTOMATED) 2022-08-30 08:08:00 Ovdean, Meri [facility] POCT GLUCOSE (AUTOMATED) 2022-08-30 07:15:00 Oville, Meri [facility] POCT GLUCOSE (AUTOMATED) 2022-08-30 06:28:00 Oville, Meri [facility] POCT GLUCOSE (AUTOMATED) 2022-08-30 05:04:00 Oville, Meri [facility] POCT GLUCOSE (AUTOMATED) 2022-08-30 04:11:00 Oville, Meri [facility] POCT GLUCOSE (AUTOMATED) 2022-08-30 03:03:00 Oville, Meri [facility] POCT GLUCOSE (AUTOMATED) 2022-08-30 02:21:00 Oville, Meri [facility] POCT GLUCOSE (AUTOMATED) 2022-08-30 01:02:00 Oville, Meri [facility] POCT GLUCOSE (AUTOMATED) 2022-08-30 00:03:00 Oville, Meri [facility] POCT GLUCOSE (AUTOMATED) 2022-08-29 23:00:00 Oville, Meri [facility] POCT GLUCOSE (AUTOMATED) 2022-08-29 22:04:00 [facility]Meri [facility]an [facility] (AUTOMATED) 2022-08-29 21:11:00 OvMeri moran [facility] POTASSIUM SERUM 2022-08-29 20:33:00 Ovdean [facility] TRIGLYCERIDES 2022-08-29 20:33:00 Ovdean [facility] POCT GLUCOSE (AUTOMATED) 2022-08-29 20:07:00 OvMeri moran [facility] POCT GLUCOSE (AUTOMATED) 2022-08-29 19:09:00 Ovdean, Meri [facility] POCT GLUCOSE (AUTOMATED) 2022-08-29 18:12:00 OvMeri moran [facility] POCT GLUCOSE (AUTOMATED) 2022-08-29 17:08:00 OvMeri moran [facility] POCT GLUCOSE (AUTOMATED) 2022-08-29 16:14:00 OvMeri moran [facility] POCT GLUCOSE (AUTOMATED) 2022-08-29 15:05:00 OvParesh morani Uni vers[facility] POCT GLUCOSE (AUTOMATED) 2022-08-29 14:08:00 OvParesh morani Uni vers[facility] POCT GLUCOSE (AUTOMATED) 2022-08-29 13:18:00 OvMeri moran [facility] POCT GLUCOSE (AUTOMATED) 2022-08-29 12:06:00 OvMeri moran [facility] POCT GLUCOSE (AUTOMATED) 2022-08-29 10:56:00 OvMeri moran Uni vers[facility] TRIGLYCERIDES 2022-08-29 10:53:00 Kamala [facility] MAGNESIUM 2022-08-29 10:53:00 Pedro [facility] BASIC METABOLIC PANEL 2022-08-29 10:53:00 [facility] (NA, K, CL, CO2, Medical Branch GLUCOSE, BUN, CREATININE, CA) POCT GLUCOSE (AUTOMATED) 2022-08-29 09:59:00 Ovdean Meri [facility] POCT GLUCOSE (AUTOMATED) 2022-08-29 09:07:00 Oville Meri [facility] POCT GLUCOSE (AUTOMATED) 2022-08-29 07:55:00 Ovdean, Meri [facility] POCT GLUCOSE (AUTOMATED) 2022-08-29 07:06:00 Oville, Meri [facility] POCT GLUCOSE (AUTOMATED) 2022-08-29 06:02:00 Oville, Meri [facility] POCT GLUCOSE (AUTOMATED) 2022-08-29 05:09:00 Oville, Meri [facility] POCT GLUCOSE (AUTOMATED) 2022-08-29 04:09:00 OvTawanda moranlani [facility] POCT GLUCOSE (AUTOMATED) 2022-08-29 03:17:00 OvilleTawandaMeri [facility] POCT GLUCOSE (AUTOMATED) 2022-08-29 02:11:00 Oville, Meri [facility] POCT GLUCOSE (AUTOMATED) 2022-08-29 01:00:00 Oville, Meri [facility] POCT GLUCOSE (AUTOMATED) 2022-08-29 00:13:00 Oville Meri [facility] POCT GLUCOSE (AUTOMATED) 2022-08-28 23:13:00 Oville, Meri [facility] POCT GLUCOSE (AUTOMATED) 2022-08-28 22:15:00 Oville, Meri [facility] POCT GLUCOSE (AUTOMATED) 2022-08-28 21:04:00 Oville, Meri [facility] POCT GLUCOSE (AUTOMATED) 2022-08-28 20:03:00 Oville, Meri [facility] POCT GLUCOSE (AUTOMATED) 2022-08-28 19:06:00 OvTawanda moranlani [facility] TRIGLYCERIDES 2022-08-28 18:22:00 Meri Wray [facility] BASIC METABOLIC PANEL 2022-08-28 18:22:00 Meri Wray [facility] (NA, K, CL, CO2, Medical Branch GLUCOSE, BUN, CREATININE, CA) POCT GLUCOSE (AUTOMATED) 2022-08-28 18:13:00 OvTawanda moranlani [facility] POCT GLUCOSE (AUTOMATED) 2022-08-28 17:03:00 Ovdean, Meri [facility] POCT GLUCOSE (AUTOMATED) 2022-08-28 16:02:00 Ovdean, Meri [facility] POCT GLUCOSE (AUTOMATED) 2022-08-28 15:02:00 Oville, Meri [facility] POCT GLUCOSE (AUTOMATED) 2022-08-28 14:03:00 Ovdean, Meri [facility] POCT GLUCOSE (AUTOMATED) 2022-08-28 13:04:00 OvTawanda moranlani [facility] POCT GLUCOSE (AUTOMATED) 2022-08-28 12:30:00 Ovdean Meri [facility] POCT GLUCOSE (AUTOMATED) 2022-08-28 11:32:00 Ovdean, Meri [facility] POCT GLUCOSE (AUTOMATED) 2022-08-28 10:06:00 Kamala Meri [facility] TRIGLYCERIDES 2022-08-28 10:00:00 Kamala [facility] BASIC METABOLIC PANEL 2022-08-28 10:00:00 Meri Wray [facility] (NA, K, CL, CO2, Medical Branch GLUCOSE, BUN, CREATININE, CA) POCT GLUCOSE (AUTOMATED) 2022-08-28 08:59:00 Ovdean Meri [facility] POCT GLUCOSE (AUTOMATED) 2022-08-28 08:05:00 Oville Meri [facility] POCT GLUCOSE (AUTOMATED) 2022-08-28 05:58:00 Ovdean, Meri [facility] POCT GLUCOSE (AUTOMATED) 2022-08-28 05:03:00 Ovdean Meri [facility] POCT GLUCOSE (AUTOMATED) 2022-08-28 04:01:00 Ovdean Meri [facility] POCT GLUCOSE (AUTOMATED) 2022-08-28 03:04:00 Ovdean Meri [facility] POCT GLUCOSE (AUTOMATED) 2022-08-28 02:02:00 Paresh Wrayi [facility] POCT GLUCOSE (AUTOMATED) 2022-08-28 01:01:00 OvParesh morani [facility] POCT GLUCOSE (AUTOMATED) 2022-08-28 00:02:00 Ovdean, Meri [facility] vers[facility] POCT GLUCOSE (AUTOMATED) 2022-08-27 23:34:00 [facility]i W[facility] POCT GLUCOSE (AUTOMATED) 2022-08-27 22:07:00 Meri Wray [facility] BASIC METABOLIC PANEL 2022-08-27 21:28:00 [facility] (NA, K, CL, CO2, Medical Branch GLUCOSE, BUN, CREATININE, CA) POCT GLUCOSE (AUTOMATED) 2022-08-27 21:01:00 Meri Wray Uni [facility] POCT GLUCOSE (AUTOMATED) 2022-08-27 20:17:00 Meri Wray [facility] POCT GLUCOSE (AUTOMATED) 2022-08-27 19:00:00 Meri Wray [facility] POCT GLUCOSE (AUTOMATED) 2022-08-27 18:02:00 Ovdean Meri [facility] TRIGLYCERIDES 2022-08-27 17:17:00 Kamala Meri [facility] BASIC METABOLIC PANEL 2022-08-27 17:17:00 Kamala [facility] (NA, K, CL, CO2, Medical Branch GLUCOSE, BUN, CREATININE, CA) POCT GLUCOSE (AUTOMATED) 2022-08-27 16:59:00 OvMeri moran Uni versity [facility] POCT GLUCOSE (AUTOMATED) 2022-08-27 16:12:00 OvMeri moran [facility] POCT GLUCOSE (AUTOMATED) 2022-08-27 15:13:00 Ovdean, Meri Uni vers[facility] POCT GLUCOSE (AUTOMATED) 2022-08-27 14:19:00 Ovdean Meri [facility] POCT GLUCOSE (AUTOMATED) 2022-08-27 13:23:00 OvMeri moran [facility] POCT GLUCOSE (AUTOMATED) 2022-08-27 12:05:00 Ovdean Meri [facility] POCT GLUCOSE (AUTOMATED) 2022-08-27 11:06:00 OvMeri moran [facility] POCT GLUCOSE (AUTOMATED) 2022-08-27 10:14:00 OvMeri moran Uni [facility] POCT GLUCOSE (AUTOMATED) 2022-08-27 09:04[facility]00 [facility] 2022-08-27 08:14:00 Kamala [facility] BASIC METABOLIC PANEL 2022-08-27 08:14:00 Kamala [facility] (NA, K, CL, CO2, Medical Branch GLUCOSE, BUN, CREATININE, CA) POCT GLUCOSE (AUTOMATED) 2022-08-27 06:58:00 Meri Wray [facility] POCT GLUCOSE (AUTOMATED) 2022-08-27 06:11:00 Meri Wray [facility] POCT GLUCOSE (AUTOMATED) 2022-08-27 05:11:00 OvMeri moran Uni [facility] POCT GLUCOSE (AUTOMATED) 2022-08-27 03:13:00 Ovdean Meri Uni [facility] LIPASE 2022-08-27 02:32:00 Allen Rivera [facility] BASIC METABOLIC PANEL 2022-08-27 02:32:00 Kamala [facility] (NA, K, CL, CO2, Medical Branch GLUCOSE, BUN, CREATININE, CA) MRSA / MSSA SCREEN BY 2022-08-27 02:32:00 Kamala [facility] PCR, NARES [facility] POCT GLUCOSE (AUTOMATED) 2022-08-27 02:00:00 Meri Wray [facility] POCT GLUCOSE (AUTOMATED) 2022-08-27 01:14:00 Meri Wray [facility] POCT GLUCOSE (AUTOMATED) 2022-08-27 00:14:00 [facility]) 2022-08-26 23:51:00 Meri Wray [facility] POCT GLUCOSE (AUTOMATED) 2022-08-26 23:06:00 [facility] 2022-08-26 22:57:00 [facility] URINALYSIS 2022-08-26 22:57:00 [facility] POCT GLUCOSE (AUTOMATED) 2022-08-26 22:08:00 Robert Lutz [facility] ABG+COOX+NA+K+GLU+CA2+ 2022-08-26 21:16:00 Robert Lutz [facility] MAGNESIUM 2022-08-26 21:11:00 [facility] OSMOLALITY, SERUM OR 2022-08-26 21:11:00 Robert Lutz [facility] PLASMA [facility] COMP. METABOLIC PANEL 2022-08-26 21:11:00 Robert Lutz [facility] ([id number]) [facility] LIPID PANEL 2022-08-26 21:11:00 Bolivar [facility] ([id number])(TOTAL [facility] CHOLESTEROL, TRIGLYCERIDES, HDL) CBC WITH DIFF 2022-08-26 21:11:00 [facility] LOW-DENSITY LIPOPROTEIN, 2022-08-26 21:11:00 Robert Lutz [facility] DIRECT [facility] HB ECG ROUTINE & RHYTHM 2022-08-26 20:34:00 Guido Rucker [facility] STRIP [facility] POCT GLUCOSE (AUTOMATED) 2022-08-26 20:33:00 Doctor Unassigned, No [facility] Name [facility] CONSENT/REFUSAL FOR 2022-08-26 20:18:28 Doctor Unassigned, No [facility] DIAGNOSIS AND TREATMENT Name [facility] POCT GLUCOSE (AUTOMATED) 2022-06-22 03:40:00 Katelyn Ivey [facility] BASIC METABOLIC PANEL 2022-06-22 02:40:00 Katelyn Ivey [facility] (NA, K, CL, CO2, Medical Branch GLUCOSE, BUN, CREATININE, CA) POCT GLUCOSE(AGE 2022-06-22 02:39:00 Katelyn Ivey [facility] >30DAYS) [facility] POCT GLUCOSE (AUTOMATED) 2022-06-22 02:38:00 Katelyn Ivey [facility] VBG+VCOOX+NA+K+GLU+CA2+ 2022-06-22 02:08:00 Katelyn Ivey [facility] POCT GLUCOSE (AUTOMATED) 2022-06-22 01:41:00 Katelyn Ivey [facility] XR CHEST 2 VW 2022-06-22 00:47:37 Katelyn Ivey [facility] PHOSPHORUS 2022-06-21 23:49:00 Katelyn Ivey [facility] MAGNESIUM 2022-06-21 23:49:00 [facility] TROPONIN I 2022-06-21 23:49:00 Katelyn Ivey [facility] BASIC METABOLIC PANEL 2022-06-21 23:49:00 Katelyn Ivey [facility] (NA, K, CL, CO2, [facility] GLUCOSE, BUN, CREATININE, CA) CBC WITH DIFF 2022-06-21 23:49:00 Katelyn Ivey [facility] GLYCOSYLATED HEMOGLOBIN 2022-06-21 23:49:00 Katelyn Ivey [facility] (A1C) [facility] URINALYSIS 2022-06-21 23:49:00 [facility] RAPID STREP SCREEN FOR 2022-06-21 23:49:00 LoniKatelyn pollock [facility] GROUP A Medical Branch RAPID INFLUENZA A/B 2022-06-21 23:49:00 Katelyn Ivey [facility] N-TERMINAL PRO-BNP 2022-06-21 23:49:00 Katelyn Ivey [facility] y [facility] COVID-19 (ID NOW RAPID 2022-06-21 23:49:00 [facility] TESTING) Medical Branch CONSENT/REFUSAL FOR 2022-06-21 23:19:40 Doctor Unassigned, No Un [facility] DIAGNOSIS AND TREATMENT Name [facility] POCT GLUCOSE (AUTOMATED) 2021-10-17 01:49:00 Beatriz Eduardo Un [facility] POCT GLUCOSE(AGE 2021-10-17 00:41:00 Beatriz Eduardo [facility] >30DAYS) [facility] POCT GLUCOSE (AUTOMATED) 2021-10-17 00:40:00 Beatriz Eduardo Un [facility] BLOOD CULTURE SCREEN 2021-10-16 23:26:00 Beatriz Eduardo [facility] BLOOD CULTURE SCREEN 2021-10-16 23:03:00 Beatriz Eduardo [facility] TROPONIN I 2021-10-16 23:03:00 Beatriz Eduardo [facility] COMP. METABOLIC PANEL 2021-10-16 23:03:00 Beatriz Eduardo [facility] ([id number]) [facility] CBC WITH DIFF 2021-10-16 23:03:00 Beatriz Eduardo [facility] URINALYSIS 2021-10-16 23:03:00 Beatriz Eduardo [facility] N-TERMINAL PRO-BNP 2021-10-16 23:03:00 Beatriz Eduardo [facility] LACTIC ACID WHOLE BLOOD 2021-10-16 23:01:00 Beatriz Eduardo [facility] CT ABDOMEN PELVIS WO 2021-10-16 22:40:13 Beatriz Eduardo [facility] POCT TEST 2021-10-16 22:34:00 Beatriz Eduardo [facility] CONSENT/REFUSAL FOR 2021-10-16 21:34:04 [facility]igned, No [facility] Name [facility] CT ABDOMEN PELVIS WO 2021-09-22 15:59:44 Singer [facility] CONTRAST [facility] POCT TEST 2021-09-22 15:18:00 Jn Miller [facility] COMP. METABOLIC PANEL 2021-09-22 15:16:00 Singer [facility] ([id number]) [facility] CBC WITH DIFF 2021-09-22 15:16[facility] 2021-09-22 14:58:00 [facility]SENT/REFUSAL FOR 2021-09-22 14:47:03 Doctor Unassigned, No [facility] Name [facility] POCT GLUCOSE (AUTOMATED) 2021-06-18 13:04:00 Fozia Jang [facility] CT ABDOMEN PELVIS WO 2021-06-18 12:58:31 Fozia Jang [facility] POCT TEST 2021-06-18 11:06:00 Fozia Jang [facility] CREATINE KINASE 2021-06-18 10:50:00 [facility] COMP. METABOLIC PANEL 2021-06-18 10:50:00 Fozia Jang [facility] ([id number]) [facility] CBC WITH DIFF 2021-06-18 10:50:00 Fozia Jang [facility] URINALYSIS 2021-06-18 10:50:00 Fozia Jang [facility] RAPID INFLUENZA A/B 2021-06-18 10:50:00 Fozia Jang [facility] COVID-19 (ID NOW RAPID 2021-06-18 10:50:00 Fozia Jang [facility] TESTING) Medical Branch NOTICE OF PRIVACY 2021-06-18 10:24:00 [facility] Unassigned, [facility] CONSENT/REFUSAL FOR 2021-06-18 10:21:45 Doctor Unassigned, No [facility] [place] [facility]REAT[facility] Name [facility] CT ABDOMEN PELVIS W 2021-05-30 23:52:43 [facility] CONTRAST Medical Branch CT HEAD WO CONTRAST 2021-05-30 23:52:13 [facility] XR CHEST 1 VW 2021-05-30 22:38:06 [facility] [place] [facility] XR HAND 3+ VW LEFT 2021-05-30 22:38:06 [facility] FOREARM 2 VW LEFT 2021-05-30 22:28:08 [facility] CONSENT/REFUSAL FOR 2021-05-30 21:39:04 Doctor Un[facility]igned, [facility] [id number] Ecg Routine Ecg 2015-12-20 00:00:00 W/least 12 Lds W/i r 83.71 2010-08-05 00:00:00 [facility] 77.98 2010-08-05 00:00:00 [facility] Plan of Care Planned Activity Planned Date Details Comments Source Future Scheduled 2023-03-11 Screening for [facility] Test 14:25:41 malignant neoplasm of colon (procedure) [code = 790609684] Future Scheduled 2023-03-11 Screening for [facility] Test 14:25:41 malignant neoplasm of colon (procedure) [code = 948711322] Future Scheduled 2023-03-11 Screening for [facility] Test 14:25:41 malignant neoplasm of colon (procedure) [code = 604110832] Future Scheduled 2023-03-11 [facility] 14[facility]25:[facility] (#1) [code = COVID-19 VACCINE (#1)] Future Scheduled 2023-03-11 [facility] 14:25:41 screening (procedure) [code = 752480016] Future Scheduled 2023-03-11 Screening for [facility] Test 14:25:41 malignant neoplasm of cervix (procedure) [code = 302303979] Future Scheduled 2023-03-11 BREAST CANCER [facility] Test 14:25:41 SCREENING [code = BREAST CANCER SCREENING] Future Scheduled 2023-03-11 Screening for [facility] Test 14:25:41 malignant neoplasm of colon (procedure) [code = 100311169] Future Scheduled 2023-03-11 Screening for [facility] Test 14:25:41 malignant neoplasm of colon (procedure) [code = 252643937] Future Scheduled 2023-03-11 [facility]25:41 (#1) [code = INFLUENZA VACCINE (#1)] Future Scheduled 2023-02-09 Screening for [facility] Test 10:57:52 malignant neoplasm of colon (procedure) [code = 854125894] Future Scheduled 2023-02-09 Screening for [facility] Test 10:57:52 malignant neoplasm of colon (procedure) [code = 265678139] Future Scheduled 2023-02-09 Screening for [facility] Test 10:57:52 malignant neoplasm of colon (procedure) [code = 704642672] Future Scheduled 2023-02-09 [facility]-[address] [facility] [facility] Test 10:57:52 (#1) [code = COVID-19 VACCINE (#1)] Future Scheduled 2023-02-09 [facility] 10:57:52 screening (procedure) [code = 433234358] Future Scheduled 2023-02-09 Screening for [facility] Test 10:57:52 malignant neoplasm of cervix (procedure) [code = 822699761] Future Scheduled 2023-02-09 BREAST CANCER [facility] Test 10:57:52 SCREENING [code = BREAST CANCER SCREENING] Future Scheduled 2023-02-09 Screening for [facility] Test 10:57:52 malignant neoplasm of colon (procedure) [code = 148683459] Future Scheduled 2023-02-09 Screening for [facility] Test 10:57:52 malignant neoplasm of colon (procedure) [code = 972922105] Future Scheduled 2023-02-09 [facility] 10:57:52 [code = INFLUENZA VACCINE] Future Scheduled 2023-02-09 Screening for [facility] Test 10:57:52 malignant neoplasm of colon (procedure) [code = 951033761] Future Scheduled 2023-02-09 Screening for [facility] Test 10:57:52 malignant neoplasm of colon (procedure) [code = 188036321] Future Scheduled 2023-02-09 Screening for [facility] Test 10:57:52 malignant neoplasm of colon (procedure) [code = 071284551] Future Scheduled 2023-02-09 [facility]-[address] [facility] Test 10:57:52 (#1) [code = COVID-19 VACCINE (#1)] Future Scheduled 2023-02-09 [facility] 10:57:52 screening (procedure) [code = 738044077] Future Scheduled 2023-02-09 Screening for [facility] Test 10:57:52 malignant neoplasm of cervix (procedure) [code = 364751622] Future Scheduled 2023-02-09 BREAST CANCER [facility] Test 10:57:52 SCREENING [code = BREAST CANCER SCREENING] Future Scheduled 2023-02-09 Screening for [facility] Test 10:57:52 malignant neoplasm of colon (procedure) [code = 922309113] Future Scheduled 2023-02-09 Screening for [facility] Test 10:57:52 malignant neoplasm of colon (procedure) [code = 080919061] Future Scheduled 2023-02-09 [facility]:57:52 [code = INFLUENZA VACCINE] Future Scheduled 2023-02-09 Screening for [facility] Test 10:57:52 malignant neoplasm of colon (procedure) [code = 636365352] Future Scheduled 2023-02-09 Screening for [facility] Test 10:57:52 malignant neoplasm of colon (procedure) [code = 083136321] Future Scheduled 2023-02-09 Screening for [facility] Test 10:57:52 malignant neoplasm of colon (procedure) [code = 186095201] Future Scheduled 2023-02-09 COVID-[address] [facility] [facility] Test 10:57:52 (#1) [code = COVID-19 VACCINE (#1)] Future Scheduled 2023-02-09 [facility] 10:57:52 screening (procedure) [code = 778012231] Future Scheduled 2023-02-09 Screening for [facility] Test 10:57:52 malignant neoplasm of cervix (procedure) [code = 715835154] Future Scheduled 2023-02-09 BREAST CANCER [facility] Test 10:57:52 SCREENING [code = BREAST CANCER SCREENING] Future Scheduled 2023-02-09 Screening for [facility] Test 10:57:52 malignant neoplasm of colon (procedure) [code = 848174262] Future Scheduled 2023-02-09 Screening for [facility] Test 10:57:52 malignant neoplasm of colon (procedure) [code = 783701690] Future Scheduled 2023-02-09 [facility] 10:57:52 [code = INFLUENZA VACCINE] Future Scheduled 2023-02-09 Screening for [facility] Test 10:57:52 malignant neoplasm of colon (procedure) [code = 726156286] Future Scheduled 2023-02-09 Screening for [facility] Test 10:57:52 malignant neoplasm of colon (procedure) [code = 087275669] Future Scheduled 2023-02-09 Screening for [facility] Test 10:57:52 malignant neoplasm of colon (procedure) [code = 058376975] Future Scheduled 2023-02-09 COVID-[address] [facility] [facility] Test 10:57:52 (#1) [code = COVID-19 VACCINE (#1)] Future Scheduled 2023-02-09 [facility] 10:57:52 screening (procedure) [code = 785460209] Future Scheduled 2023-02-09 Screening for [facility] Test 10:57:52 malignant neoplasm of cervix (procedure) [code = 690082579] Future Scheduled 2023-02-09 BREAST CANCER [facility] Test 10:57:52 SCREENING [code = BREAST CANCER SCREENING] Future Scheduled 2023-02-09 Screening for [facility] Test 10:57:52 malignant neoplasm of colon (procedure) [code = 405929642] Future Scheduled 2023-02-09 Screening for [facility] Test 10:57:52 malignant neoplasm of colon (procedure) [code = 450753910] Future Scheduled 2023-02-09 [facility] 10:57:52 [code = INFLUENZA VACCINE] Future Scheduled 2023-02-09 Screening for [facility] Test 10:57:52 malignant neoplasm of colon (procedure) [code = 769154986] Future Scheduled 2023-02-09 Screening for [facility] Test 10:57:52 malignant neoplasm of colon (procedure) [code = 943843506] Future Scheduled 2023-02-09 Screening for [facility] Test 10:57:52 malignant neoplasm of colon (procedure) [code = 043885951] Future Scheduled 2023-02-09 [facility] (#1) [code = COVID-19 VACCINE (#1)] Future Scheduled 2023-02-09 [facility] 10:57:52 screening (procedure) [code = 859577735] Future Scheduled 2023-02-09 Screening for [facility] Test 10:57:52 malignant neoplasm of cervix (procedure) [code = 999959119] Future Scheduled 2023-02-09 BREAST CANCER [facility] Test 10:57:52 SCREENING [code = BREAST CANCER SCREENING] Future Scheduled 2023-02-09 Screening for [facility] Test 10:57:52 malignant neoplasm of colon (procedure) [code = 629861206] Future Scheduled 2023-02-09 Screening for [facility] Test 10:57:52 malignant neoplasm of colon (procedure) [code = 992331875] Future Scheduled 2023-02-09 [facility] 10:57:52 [code = INFLUENZA VACCINE] Future Scheduled 2022-12-21 [facility] (#1) [code = COVID-19 VACCINE (#1)] Future Scheduled 2022-12-21 [facility] 13:47:21 screening (procedure) [code = 420310144] Future Scheduled 2022-12-21 Screening for [facility] Test 13:47:21 malignant neoplasm of cervix (procedure) [code = 227069309] Future Scheduled 2022-12-21 BREAST CANCER [facility] Test 13:47:21 SCREENING [code = BREAST CANCER SCREENING] Future Scheduled 2022-12-21 [facility] 13:47:21 [code = INFLUENZA VACCINE] Future Scheduled 2022-10-29 COVID-19 VACCINE [facility] Test 14:01:19 (#1) [code = COVID-19 VACCINE (#1)] Future Scheduled 2022-10-29 [facility] 14:01:19 screening (procedure) [code = 361399796] Future Scheduled 2022-10-29 Scre[facility] for [facility] Test 14:01:19 malignant neoplasm of cervix (procedure) [code = 758081689] Future Scheduled 2022-10-29 BREAST CANCER [facility] Test 14:01:19 SCREENING [code = BREAST CANCER SCREENING] Future Scheduled 2022-10-29 [facility] 14:01:19 [code = INFLUENZA VACCINE] Future Scheduled 2022-10-29 COVID-[address] [facility] Test 14:01:19 (#1) [code = COVID-19 VACCINE (#1)] Future Scheduled 2022-10-29 [facility] 14:01:19 screening (procedure) [code = 056319192] Future Scheduled 2022-10-29 Screening for [facility] Test 14:01:19 malignant neoplasm of cervix (procedure) [code = 738522861] Future Scheduled 2022-10-29 BREAST CANCER [facility] Test 14:01:19 SCREENING [code = BREAST CANCER SCREENING] Future Scheduled 2022-10-29 [facility] 14:01:19 [code = INFLUENZA VACCINE] Future Scheduled 2022-06-30 [facility] 13:24:39 (#1) [code = COVID-19 VACCINE (#1)] Future Scheduled 2022-06-30 [facility] 13:24:39 screening (procedure) [code = 631996551] Future Scheduled 2022-06-30 Screening for [facility] Test 13:24:39 malignant neoplasm of cervix (procedure) [code = 373951510] Future Scheduled 2022-06-30 BREAST CANCER [facility] Test 13:24:39 SCREENING [code = BREAST CANCER SCREENING] Future Scheduled 2022-06-30 [facility] 13:24:39 [code = INFLUENZA VACCINE] Future Scheduled 2022-06-30 [facility]-[address] [facility] Test 13:24:39 (#1) [code = COVID-19 VACCINE (#1)] Future Scheduled 2022-06-30 [facility] 13:24:39 screening (procedure) [code = 754679919] Future Scheduled 2022-06-30 Screening for [facility] Test 13:24:39 malignant neoplasm of cervix (procedure) [code = 977377396] Future Scheduled 2022-06-30 BREAST CANCER [facility] Test 13:24:39 SCREENING [code = BREAST CANCER SCREENING] Future Scheduled 2022-06-30 INFLUENZA VACCINE [facility] Test 13:24:39 [code = INFLUENZA VACCINE] Future Scheduled 2022-06-30 COVID-19 VACCINE [facility] Test 13:24:39 (#1) [code = COVID-19 VACCINE (#1)] Future Scheduled 2022-06-30 [facility] 13:24:39 screening (procedure) [code = 432734059] Future Scheduled 2022-06-30 Screening for [facility] Test 13:24:39 malignant neoplasm of cervix (procedure) [code = 819138658] Future Scheduled 2022-06-30 BREAST CANCER [facility] Test 13:24:39 SCREENING [code = BREAST CANCER SCREENING] Future Scheduled 2022-06-30 INFLUENZA VACCINE [facility] Test 13:24:39 [code = INFLUENZA VACCINE] Future Scheduled 2022-05-12 [facility] 14:10:29 VACCINES (1 of 3 - 3-dose series) [code = HEPATITIS B VACCINES (1 of 3 - 3-dose series)] Future Scheduled 2022-05-12 COVID-19 VACCINE [facility] Test 14:10:29 (#1) [code = COVID-19 VACCINE (#1)] Future Scheduled 2022-05-12 [facility] 14:10:29 screening (procedure) [code = 839183761] Future Scheduled 2022-05-12 Screening for [facility] Test 14:10:29 malignant neoplasm of cervix (procedure) [code = 770981683] Future Scheduled 2022-05-12 BREAST CANCER [facility] Test 14:10:29 SCREENING [code = BREAST CANCER SCREENING] Future Scheduled 2022-05-12 INFLUENZA VACCINE [facility] Test 14:10:29 [code = INFLUENZA VACCINE] Future Scheduled 2022-05-12 [facility] 14:10:29 VACCINES (1 of 3 - 3-dose series) [code = HEPATITIS B VACCINES (1 of 3 - 3-dose series)] Future Scheduled 2022-05-12 COVID-19 VACCINE [facility] Test 14:10:29 (#1) [code = COVID-19 VACCINE (#1)] Future Scheduled 2022-05-12 [facility] 14:10:29 screening (procedure) [code = 945439579] Future Scheduled 2022-05-12 Screening for [facility] Test 14:10:29 malignant neoplasm of cervix (procedure) [code = 946476232] Future Scheduled 2022-05-12 BREAST CANCER [facility] Test 14:10:29 SCREENING [code = BREAST CANCER SCREENING] Future Scheduled 2022-05-12 [facility] 14:10:29 [code = INFLUENZA VACCINE] Future Scheduled 2022-05-12 [facility] 14:10:29 VACCINES (1 of 3 - 3-dose series) [code = HEPATITIS B VACCINES (1 of 3 - 3-dose series)] Future Scheduled 2022-05-12 [facility] 14:10:[facility] (#1) [code = COVID-19 VACCINE (#1)] Future Scheduled 2022-05-12 [facility] 14:10:29 screening (procedure) [code = 410554668] Future Scheduled 2022-05-12 Screening for [facility] Test 14:10:29 malignant neoplasm of cervix (procedure) [code = 952597589] Future Scheduled 2022-05-12 BREAST CANCER [facility] Test 14:10:29 SCREENING [code = BREAST CANCER SCREENING] Future Scheduled 2022-05-12 [facility] 14:10:29 [code = INFLUENZA VACCINE] Future Scheduled 2022-05-12 [facility] 14:10:29 VACCINES (1 of 3 - 3-dose series) [code = HEPATITIS B VACCINES (1 of 3 - 3-dose series)] Future Scheduled 2022-05-12 COVID-19 VACCINE [facility] Test 14:10:29 (#1) [code = COVID-19 VACCINE (#1)] Future Scheduled 2022-05-12 [facility] 14:10:29 screening (procedure) [code = 772115153] Future Scheduled 2022-05-12 Scre[facility] Test 14:10:29 malignant neoplasm of cervix (procedure) [code = 593907965] Future Scheduled 2022-05-12 BREAST CANCER [facility] Test 14:10:29 SCREENING [code = BREAST CANCER SCREENING] Future Scheduled 2022-05-12 [facility] 14:10:29 [code = INFLUENZA VACCINE] Future Scheduled 2022-04-12 [facility] 08:53:27 screening (procedure) [code = 999812339] Future Scheduled 2022-04-12 Screening for [facility] Test 08:53:27 malignant neoplasm of cervix (procedure) [code = 979392231] Future Scheduled 2022-04-12 BREAST CANCER [facility] Test 08:53:27 SCREENING [code = BREAST CANCER SCREENING] Future Scheduled 2022-04-12 [facility] 08:53:27 [code = INFLUENZA VACCINE] Future Scheduled 2022-04-12 [facility] 08:53:27 VACCINES (1 of 3 - 3-dose series) [code = HEPATITIS B VACCINES (1 of 3 - 3-dose series)] Future Scheduled 2022-04-12 [facility] 08:[facility]:27 (#1) [code = COVID-19 VACCINE (#1)] Future Scheduled 2022-03-16 [facility] 11:35:00 VACCINES (1 of 3 - 3-dose series) [code = HEPATITIS B VACCINES (1 of 3 - 3-dose series)] Future Scheduled 2022-03-16 [facility] 11:35:00 (#1) [code = COVID-19 VACCINE (#1)] Future Scheduled 2022-03-16 [facility] 11:35:00 screening (procedure) [code = 221098900] Future Scheduled 2022-03-16 [facility] Test 11:35:00 malignant neoplasm of cervix (procedure) [code = 229209395] Future Scheduled 2022-03-16 BREAST CANCER [facility] Test 11:35:00 SCREENING [code = BREAST CANCER SCREENING] Future Scheduled 2022-03-16 [facility] 11:35:00 [code = INFLUENZA VACCINE] Future Scheduled 2022-03-16 [facility] 11:35:00 VACCINES (1 of 3 - 3-dose series) [code = HEPATITIS B VACCINES (1 of 3 - 3-dose series)] Future Scheduled 2022-03-16 [facility] 11:[facility]00 (#1) [code = COVID-19 VACCINE (#1)] Future Scheduled 2022-03-16 [facility] 11:35:00 screening (procedure) [code = 135075437] Future Scheduled 2022-03-16 Screening for [facility] Test 11:35:00 malignant neoplasm of cervix (procedure) [code = 633560128] Future Scheduled 2022-03-16 BREAST CANCER [facility] Test 11:35:00 SCREENING [code = BREAST CANCER SCREENING] Future Scheduled 2022-03-16 INFLUENZA VACCINE [facility] Test 11:35:00 [code = INFLUENZA VACCINE] Future Scheduled 2022-03-09 [facility] 12:08:14 VACCINES (1 of 3 - 3-dose series) [code = HEPATITIS B VACCINES (1 of 3 - 3-dose series)] Future Scheduled 2022-03-09 COVID-19 VACCINE [facility] Test 12:08:14 (#1) [code = COVID-19 VACCINE (#1)] Future Scheduled 2022-03-09 [facility] 12:08:14 screening (procedure) [code = 806013409] Future Scheduled 2022-03-09 Screening for [facility] Test 12:08:14 malignant neoplasm of cervix (procedure) [code = 962501681] Future Scheduled 2022-03-09 BREAST CANCER [facility] Test 12:08:14 SCREENING [code = BREAST CANCER SCREENING] Future Scheduled 2022-03-09 INFLUENZA VACCINE [facility] Test 12:08:14 [code = INFLUENZA VACCINE] Future Scheduled 2022-03-09 [facility] 12:08:14 VACCINES (1 of 3 - 3-dose series) [code = HEPATITIS B VACCINES (1 of 3 - 3-dose series)] Future Scheduled 2022-03-09 [facility] 12:08:14 (#1) [code = COVID-19 VACCINE (#1)] Future Scheduled 2022-03-09 [facility] 12:08:14 screening (procedure) [code = 214688742] Future Scheduled 2022-03-09 Screening for [facility] Test 12:08:14 malignant neoplasm of cervix (procedure) [code = 411394352] Future Scheduled 2022-03-09 BREAST CANCER [facility] Test 12:08:14 SCREENING [code = BREAST CANCER SCREENING] Future Scheduled 2022-03-09 INFLUENZA VACCINE [facility] Test 12:08:14 [code = INFLUENZA VACCINE] Future Scheduled 2022-03-09 [facility] 12:08:14 VACCINES (1 of 3 - 3-dose series) [code = HEPATITIS B VACCINES (1 of 3 - 3-dose series)] Future Scheduled 2022-03-09 [facility] Test 12:08:14 (#1) [code = COVID-19 VACCINE (#1)] Future Scheduled 2022-03-09 [facility] 12:08:14 screening (procedure) [code = 532134581] Future Scheduled 2022-03-09 Screening for [facility] Test 12:08:14 malignant neoplasm of cervix (procedure) [code = 004501628] Future Scheduled 2022-03-09 BREAST CANCER [facility] Test 12:08:14 SCREENING [code = BREAST CANCER SCREENING] Future Scheduled 2022-03-09 INFLUENZA VACCINE [facility] Test 12:08:14 [code = INFLUENZA VACCINE] Goal Plan of Care Note [code = 96553-0] Goal Plan of Care Note [code = 98008-3] Goal Plan of Care Note [code = 37967-9] Goal Plan of Care Note [code = 28362-4] Goal Plan of Care Note [code = 79134-3] Goal Plan of Care Note [code = 65594-2] Goal Plan of Care Note [code = 60025-2] Goal Plan of Care Note [code = 68480-2] Goal Plan of Care Note [code = 82778-8] Goal Plan of Care Note [code = 15738-0] Goal Plan of Care Note [code = 01900-5] Goal Plan of Care Note [code = 70748-7] Goal Plan of Care Note [code = 41132-9] Goal Plan of Care Note [code = 61034-3] Goal Plan of Care Note [code = 36818-5] Goal Plan of Care Note [code = 15217-8] Goal Plan of Care Note [code = 58221-0] Goal Plan of Care Note [code = 66221-0] Goal Plan of Care Note [code = 86853-2] Goal Plan of Care Note [code = 86869-7] Goal Plan of Care Note [code = 86912-7] Goal Plan of Care Note [code = 37516-6] Goal Plan of Care Note [code = 92639-6] Goal Plan of Care Note [code = 24385-5] Goal Plan of Care Note [code = 94459-6] Goal Plan of Care Note [code = 92412-6] Goal Plan of Care Note [code = 69528-0] Goal Plan of Care Note [code = 81312-6] Goal Plan of Care Note [code = 06752-7] Goal Plan of Care Note [code = 81112-4] Goal Plan of Care Note [code = 74228-1] Goal Plan of Care Note [code = 53141-8] Goal Plan of Care Note [code = 69860-7] Goal Plan of Care Note [code = 07339-9] Goal Plan of Care Note [code = 82264-4] Goal Plan of Care Note [code = 03303-9] Goal Plan of Care Note [code = 94288-8] Goal Plan of Care Note [code = 57520-6] Goal Plan of Care Note [code = 67286-5] Goal Plan of Care Note [code = 00569-4] Goal Plan of Care Note [code = 59786-8] Goal Plan of Care Note [code = 30921-9] Goal Plan of Care Note [code = 26340-1] Goal Plan of Care Note [code = 85955-3] Goal Plan of Care Note [code = 37921-6] Goal Plan of Care Note [code = 27152-1] Goal Plan of Care Note [code = 66402-5] Goal Plan of Care Note [code = 69068-7] Goal Plan of Care Note [code = 60266-5] Goal Plan of Care Note [code = 93236-2] Goal Plan of Care Note [code = 28084-7] Goal Plan of Care Note [code = 16212-7] Goal Plan of Care Note [code = 46177-9] Goal Plan of Care Note [code = 25828-3] Goal Plan of Care Note [code = 54047-9] Goal Plan of Care Note [code = 04664-2] Goal Plan of Care Note [code = 16401-9] Goal Plan of Care Note [code = 66717-9] Goal Plan of Care Note [code = 65242-2] Goal Plan of Care Note [code = 77429-3] Goal Plan of Care Note [code = 33720-1] Goal Plan of Care Note [code = 86571-7] Goal Plan of Care Note [code = 62560-7] Goal Plan of Care Note [code = 64029-3] Goal Plan of Care Note [code = 55890-8] Goal Plan of Care Note [code = 47481-4] Goal Plan of Care Note [code = 05345-4] Goal Plan of Care Note [code = 16063-9] Goal Plan of Care Note [code = 78750-6] Goal Plan of Care Note [code = 57938-2] Goal Plan of Care Note [code = 73551-5] Goal Plan of Care Note [code = 14582-1] Goal Plan of Care Note [code = 04153-2] Goal Plan of Care Note [code = 35746-9] Goal Plan of Care Note [code = 16183-3] Goal Plan of Care Note [code = 14262-8] Goal Plan of Care Note [code = 73692-1] Goal Plan of Care Note [code = 81786-8] Goal Plan of Care Note [code = 46433-6] Goal Plan of Care Note [code = 35773-7] Goal Plan of Care Note [code = 27795-3] Goal Plan of Care Note [code = 00503-1] Goal Plan of Care Note [code = 82107-3] Goal Plan of Care Note [code = 47818-0] Goal Plan of Care Note [code = 98474-0] Goal Plan of Care Note [code = 74799-0] Goal Plan of Care Note [code = 57353-2] Goal Plan of Care Note [code = 76935-0] Goal Plan of Care Note [code = 16624-1] Goal Plan of Care Note [code = 75729-4] Goal Plan of Care Note [code = 03406-6] Goal Plan of Care Note [code = 82600-0] Goal Plan of Care Note [code = 09597-8] Goal Plan of Care Note [code = 72750-9] Goal Plan of Care Note [code = 62259-2] Goal Plan of Care Note [code = 14743-7] Goal Plan of Care Note [code = 10737-2] Goal Plan of Care Note [code = 17105-1] Goal Plan of Care Note [code = 38518-7] Goal Plan of Care Note [code = 94387-2] Goal Plan of Care Note [code = 67507-7] Goal Plan of Care Note [code = 63846-8] Goal Plan of Care Note [code = 74600-1] Goal Plan of Care Note [code = 79766-6] Goal Plan of Care Note [code = 19665-5] Goal Plan of Care Note [code = 41682-5] Goal Plan of Care Note [code = 40199-1] Goal Plan of Care Note [code = 81305-7] Goal Plan of Care Note [code = 49799-8] Goal Plan of Care Note [code = 17729-1] Goal Plan of Care Note [code = 04313-4] Goal Plan of Care Note [code = 57127-4] Goal Plan of Care Note [code = 57807-3] Goal Plan of Care Note [code = 70827-2] Goal Plan of Care Note [code = 46885-5] Goal Plan of Care Note [code = 00804-8] Goal Plan of Care Note [code = 19467-9] Goal Plan of Care Note [code = 18443-7] Goal Plan of Care Note [code = 54222-8] Goal Plan of Care Note [code = 95832-9] Goal Plan of Care Note [code = 76870-7] Goal Plan of Care Note [code = 24879-3] Goal Plan of Care Note [code = 86846-3] Goal Plan of Care Note [code = 26291-4] Goal Plan of Care Note [code = 34335-1] Goal Plan of Care Note [code = 26222-9] Goal Plan of Care Note [code = 10596-7] Goal Plan of Care Note [code = 62476-1] Goal Plan of Care Note [code = 31291-2] Goal Plan of Care Note [code = 57241-3] Goal Plan of Care Note [code = 08257-6] Goal Plan of Care Note [code = 56206-5] Goal Plan of Care Note [code = 54007-7] Goal Plan of Care Note [code = 53280-2] Goal Plan of Care Note [code = 35164-9] Goal Plan of Care Note [code = 27827-8] Goal Plan of Care Note [code = 67239-9] Goal Plan of Care Note [code = 70508-9] Goal Plan of Care Note [code = 91982-4] Goal Plan of Care Note [code = 22507-9] Goal Plan of Care Note [code = 44783-6] Goal Plan of Care Note [code = 22384-0] Goal Plan of Care Note [code = 84851-5] Goal Plan of Care Note [code = 21240-4] Goal Plan of Care Note [code = 01399-6] Goal Plan of Care Note [code = 68565-1] Goal Plan of Care Note [code = 93514-9] Goal Plan of Care Note [code = 50353-1] Goal Plan of Care Note [code = 89411-3] Goal Plan of Care Note [code = 91331-4] Goal Plan of Care Note [code = 94583-4] Goal Plan of Care Note [code = 28103-1] Goal Plan of Care Note [code = 75388-4] Goal Plan of Care Note [code = 63621-4] Goal Plan of Care Note [code = 09496-3] Goal Plan of Care Note [code = 44802-7] Goal Plan of Care Note [code = 21230-0] Goal Plan of Care Note [code = 02906-5] Goal Plan of Care Note [code = 64706-8] Goal Plan of Care Note [code = 52126-8] Goal Plan of Care Note [code = 85600-3] Goal Plan of Care Note [code = 07136-6] Goal Plan of Care Note [code = 79922-7] Goal Plan of Care Note [code = 74347-7] Goal Plan of Care Note [code = 49232-3] Goal Plan of Care Note [code = 52753-6] Goal Plan of Care Note [code = 65546-3] Goal Plan of Care Note [code = 03546-8] Goal Plan of Care Note [code = 89498-0] Goal Plan of Care Note [code = 51268-5] Goal Plan of Care Note [code = 20446-7] Goal Plan of Care Note [code = 45149-9] Goal Plan of Care Note [code = 99163-3] Goal Plan of Care Note [code = 54333-5] Goal Plan of Care Note [code = 17256-7] Goal Plan of Care Note [code = 61229-9] Goal Plan of Care Note [code = 02861-8] Goal Plan of Care Note [code = 62507-6] Goal Plan of Care Note [code = 21428-9] Goal Plan of Care Note [code = 82024-6] Goal Plan of Care Note [code = 36612-8] Goal Plan of Care Note [code = 63936-1] Goal Plan of Care Note [code = 12013-9] Goal Plan of Care Note [code = 28989-0] Goal Plan of Care Note [code = 12088-7] Goal Plan of Care Note [code = 16447-9] Goal Plan of Care Note [code = 92642-2] Goal Plan of Care Note [code = 00543-4] Goal Plan of Care Note [code = 72548-1] Goal Plan of Care Note [code = 82499-3] Goal Plan of Care Note [code = 56258-5] Goal Plan of Care Note [code = 48661-1] Goal Plan of Care Note [code = 96696-0] Goal Plan of Care Note [code = 70384-5] Goal Plan of Care Note [code = 37041-6] Goal Plan of Care Note [code = 06065-6] Goal Plan of Care Note [code = 17172-4] Goal Plan of Care Note [code = 57115-6] Goal Plan of Care Note [code = 64178-9] Goal Plan of Care Note [code = 32506-5] Goal Plan of Care Note [code = 60758-3] Goal Plan of Care Note [code = 81814-1] Goal Plan of Care Note [code = 03450-6] Goal Plan of Care Note [code = 05348-6] Goal Plan of Care Note [code = 14800-0] Goal Plan of Care Note [code = 07182-1] Goal Plan of Care Note [code = 36444-9] Goal Plan of Care Note [code = 59357-2] Goal Plan of Care Note [code = 57900-1] Goal Plan of Care Note [code = 76303-5] Goal Plan of Care Note [code = 63334-2] Goal Plan of Care Note [code = 83096-9] Goal Plan of Care Note [code = 53560-8] Goal Plan of Care Note [code = 30410-5] Goal Plan of Care Note [code = 52827-2] Goal Plan of Care Note [code = 07983-0] Goal Plan of Care Note [code = 62422-5] Goal Plan of Care Note [code = 06563-1] Goal Plan of Care Note [code = 29042-5] Goal Plan of Care Note [code = 09334-5] Goal Plan of Care Note [code = 37058-7] Goal Plan of Care Note [code = 90262-9] Goal Plan of Care Note [code = 68687-9] Goal Plan of Care Note [code = 67536-9] Goal Plan of Care Note [code = 57639-2] Goal Plan of Care Note [code = 13110-6] Goal Plan of Care Note [code = 07507-2] Goal Plan of Care Note [code = 65626-6] Goal Plan of Care Note [code = 57882-6] Goal Plan of Care Note [code = 29594-9] Goal Plan of Care Note [code = 05377-9] Goal Plan of Care Note [code = 42743-7] Goal Plan of Care Note [code = 36641-3] Goal Plan of Care Note [code = 60787-9] Goal Plan of Care Note [code = 01178-6] Goal Plan of Care Note [code = 02812-0] Goal Plan of Care Note [code = 37907-1] Goal Plan of Care Note [code = 07266-5] Goal Plan of Care Note [code = 05213-4] Goal Plan of Care Note [code = 94776-9] Goal Plan of Care Note [code = 07672-0] Goal Plan of Care Note [code = 75567-5] Goal Plan of Care Note [code = 77826-7] Goal Plan of Care Note [code = 68936-6] Goal Plan of Care Note [code = 53602-6] Goal Plan of Care Note [code = 57894-2] Goal Plan of Care Note [code = 33787-0] Goal Plan of Care Note [code = 11201-3] Goal Plan of Care Note [code = 92833-2] Goal Plan of Care Note [code = 22355-8] Goal Plan of Care Note [code = 90159-6] Goal Plan of Care Note [code = 89927-7] Goal Plan of Care Note [code = 72009-8] Goal Plan of Care Note [code = 79440-9] Goal Plan of Care Note [code = 59854-3] Goal Plan of Care Note [code = 22459-5] Goal Plan of Care Note [code = 20248-5] Goal Plan of Care Note [code = 46053-1] Goal Plan of Care Note [code = 19269-1] Goal Plan of Care Note [code = 10154-2] Goal Plan of Care Note [code = 41660-6] Goal Plan of Care Note [code = 02068-8] Goal Plan of Care Note [code = 15015-0] Goal Plan of Care Note [code = 88088-6] Goal Plan of Care Note [code = 50359-8] Goal Plan of Care Note [code = 86540-8] Goal Plan of Care Note [code = 71048-7] Goal Plan of Care Note [code = 06361-3] Goal Plan of Care Note [code = 38715-2] Goal Plan of Care Note [code = 95202-9] Goal Plan of Care Note [code = 81284-3] Goal Plan of Care Note [code = 47075-4] Goal Plan of Care Note [code = 29911-4] Goal Plan of Care Note [code = 03542-1] Goal Plan of Care Note [code = 58566-3] Goal Plan of Care Note [code = 74058-6] Goal Plan of Care Note [code = 48082-0] Goal Plan of Care Note [code = 52350-7] Goal Plan of Care Note [code = 80504-0] Goal Plan of Care Note [code = 91253-7] Goal Plan of Care Note [code = 88644-8] Goal Plan of Care Note [code = 59149-6] Goal Plan of Care Note [code = 89707-9] Goal Plan of Care Note [code = 00926-5] Goal Plan of Care Note [code = 11897-7] Goal Plan of Care Note [code = 53712-0] Goal Plan of Care Note [code = 43081-6] Goal Plan of Care Note [code = 22859-8] Goal Plan of Care Note [code = 88593-8] Goal Plan of Care Note [code = 80516-8] Goal Plan of Care Note [code = 43637-3] Goal Plan of Care Note [code = 65528-1] Goal Plan of Care Note [code = 30189-3] Goal Plan of Care Note [code = 33508-0] Goal Plan of Care Note [code = 94630-4] Goal Plan of Care Note [code = 60288-0] Goal Plan of Care Note [code = 71006-1] Goal Plan of Care Note [code = 62194-0] Goal Plan of Care Note [code = 16160-7] Goal Plan of Care Note [code = 34696-8] Goal Plan of Care Note [code = 78171-7] Goal Plan of Care Note [code = 17556-0] Goal Plan of Care Note [code = 84738-8] Goal Plan of Care Note [code = 27967-3] Goal Plan of Care Note [code = 00409-7] Goal Plan of Care Note [code = 36533-1] Goal Plan of Care Note [code = 76932-8] Goal Plan of Care Note [code = 57502-3] Goal Plan of Care Note [code = 82128-1] Goal Plan of Care Note [code = 14041-9] Goal Plan of Care Note [code = 72112-4] Goal Plan of Care Note [code = 54902-6] Goal Plan of Care Note [code = 05753-1] Goal Plan of Care Note [code = 80122-2] Goal Plan of Care Note [code = 80052-1] Goal Plan of Care Note [code = 14535-2] Goal Plan of Care Note [code = 47080-6] Goal Plan of Care Note [code = 77455-1] Goal Plan of Care Note [code = 32045-7] Goal Plan of Care Note [code = 01169-1] Goal Plan of Care Note [code = 26596-3] Goal Plan of Care Note [code = 09057-2] Goal Plan of Care Note [code = 55056-9] Goal Plan of Care Note [code = 63500-6] Goal Plan of Care Note [code = 23419-6] Goal Plan of Care Note [code = 35852-0] Goal Plan of Care Note [code = 42989-9] Goal Plan of Care Note [code = 69963-5] Goal Plan of Care Note [code = 37334-3] Goal Plan of Care Note [code = 52610-8] Goal Plan of Care Note [code = 69606-2] Goal Plan of Care Note [code = 98166-2] Goal Plan of Care Note [code = 39810-9] Goal Plan of Care Note [code = 67301-1] Goal Plan of Care Note [code = 54605-4] Goal Plan of Care Note [code = 30319-5] Goal Plan of Care Note [code = 14041-7] Goal Plan of Care Note [code = 88483-4] Goal Plan of Care Note [code = 68324-0] Goal Plan of Care Note [code = 81304-3] Goal Plan of Care Note [code = 15806-9] Goal Plan of Care Note [code = 31295-0] Goal Plan of Care Note [code = 63153-2] Goal Plan of Care Note [code = 77116-5] Goal Plan of Care Note [code = 71257-3] Goal Plan of Care Note [code = 42767-0] Goal Plan of Care Note [code = 02037-8] Goal Plan of Care Note [code = 21492-2] Goal Plan of Care Note [code = 27757-7] Goal Plan of Care Note [code = 26995-6] Goal Plan of Care Note [code = 34121-0] Goal Plan of Care Note [code = 44623-0] Goal Plan of Care Note [code = 68191-0] Goal Plan of Care Note [code = 39613-4] Goal Plan of Care Note [code = 19562-0] Goal Plan of Care Note [code = 17745-5] Goal Plan of Care Note [code = 66614-6] Goal Plan of Care Note [code = 23893-8] Goal Plan of Care Note [code = 62231-5] Goal Plan of Care Note [code = 54303-9] Goal Plan of Care Note [code = 98223-2] Goal Plan of Care Note [code = 69003-3] Goal Plan of Care Note [code = 53306-5] Goal Plan of Care Note [code = 81425-9] Goal Plan of Care Note [code = 25781-8] Goal Plan of Care Note [code = 36206-0] Goal Plan of Care Note [code = 16609-8] Goal Plan of Care Note [code = 75690-8] Goal Plan of Care Note [code = 91642-5] Goal Plan of Care Note [code = 35731-6] Goal Plan of Care Note [code = 65032-8] Goal Plan of Care Note [code = 90370-0] Goal Plan of Care Note [code = 86577-0] Goal Plan of Care Note [code = 72382-0] Goal Plan of Care Note [code = 50466-3] Goal Plan of Care Note [code = 56456-7] Goal Plan of Care Note [code = 54268-2] Goal Plan of Care Note [code = 66913-7] Goal Plan of Care Note [code = 30320-3] Goal Plan of Care Note [code = 42530-9] Goal Plan of Care Note [code = 75882-7] Goal Plan of Care Note [code = 51387-8] Goal Plan of Care Note [code = 96215-3] Goal Plan of Care Note [code = 35160-6] Goal Plan of Care Note [code = 97428-8] Goal Plan of Care Note [code = 91874-4] Goal Plan of Care Note [code = 86497-1] Goal Plan of Care Note [code = 34620-5] Goal Plan of Care Note [code = 69014-9] Goal Plan of Care Note [code = 78548-8] Goal Plan of Care Note [code = 26131-4] Goal Plan of Care Note [code = 87525-9] Goal Plan of Care Note [code = 38006-2] Goal Plan of Care Note [code = 56727-0] Goal Plan of Care Note [code = 23742-2] Goal Plan of Care Note [code = 03940-6] Goal Plan of Care Note [code = 81486-1] Goal Plan of Care Note [code = 07720-9] Goal Plan of Care Note [code = 53670-4] Goal Plan of Care Note [code = 04541-3] Goal Plan of Care Note [code = 87476-4] Goal Plan of Care Note [code = 19320-5] Goal Plan of Care Note [code = 59126-2] Goal Plan of Care Note [code = 04189-4] Goal Plan of Care Note [code = 48882-7] Goal Plan of Care Note [code = 29361-8] Goal Plan of Care Note [code = 60492-0] Goal Plan of Care Note [code = 73051-0] Goal Plan of Care Note [code = 64540-1] Goal Plan of Care Note [code = 62523-3] Goal Plan of Care Note [code = 24228-7] Goal Plan of Care Note [code = 75889-9] Goal Plan of Care Note [code = 32493-8] Goal Plan of Care Note [code = 89074-3] Goal Plan of Care Note [code = 12446-3] Goal Plan of Care Note [code = 59535-5] Goal Plan of Care Note [code = 01274-5] Goal Plan of Care Note [code = 36646-9] Goal Plan of Care Note [code = 86015-5] Goal Plan of Care Note [code = 27797-1] Goal Plan of Care Note [code = 94368-9] Goal Plan of Care Note [code = 60315-6] Goal Plan of Care Note [code = 70013-0] Goal Plan of Care Note [code = 28749-9] Goal Plan of Care Note [code = 38100-4] Goal Plan of Care Note [code = 32472-9] Goal Plan of Care Note [code = 95899-5] Goal Plan of Care Note [code = 69385-3] Goal Plan of Care Note [code = 45630-6] Goal Plan of Care Note [code = 39195-4] Goal Plan of Care Note [code = 52854-8] Goal Plan of Care Note [code = 44418-6] Goal Plan of Care Note [code = 52367-5] Goal Plan of Care Note [code = 48333-8] Goal Plan of Care Note [code = 22619-7] Goal Plan of Care Note [code = 16521-9] Goal Plan of Care Note [code = 52340-1] Goal Plan of Care Note [code = 52999-8] Goal Plan of Care Note [code = 21013-4] Goal Plan of Care Note [code = 12585-2] Goal Plan of Care Note [code = 55079-4] Goal Plan of Care Note [code = 37198-3] Goal Plan of Care Note [code = 46458-4] Goal Plan of Care Note [code = 36276-6] Goal Plan of Care Note [code = 27816-0] Goal Plan of Care Note [code = 88039-8] Goal Plan of Care Note [code = 42091-4] Goal Plan of Care Note [code = 99121-2] Goal Plan of Care Note [code = 62137-7] Goal Plan of Care Note [code = 99372-2] Goal Plan of Care Note [code = 85376-5] Goal Plan of Care Note [code = 73941-6] Goal Plan of Care Note [code = 33692-9] Goal Plan of Care Note [code = 91183-2] Goal Plan of Care Note [code = 90233-5] Goal Plan of Care Note [code = 17581-0] Goal Plan of Care Note [code = 55720-3] Goal Plan of Care Note [code = 79788-4] Goal Plan of Care Note [code = 90906-1] Goal Plan of Care Note [code = 23130-5] Goal Plan of Care Note [code = 38414-8] Goal Plan of Care Note [code = 64929-2] Goal Plan of Care Note [code = 86202-2] Goal Plan of Care Note [code = 33032-3] Goal Plan of Care Note [code = 66343-2] Goal Plan of Care Note [code = 50147-3] Goal Plan of Care Note [code = 80767-4] Goal Plan of Care Note [code = 39665-4] Goal Plan of Care Note [code = 57621-5] Goal Plan of Care Note [code = 51051-7] Goal Plan of Care Note [code = 79491-2] Goal Plan of Care Note [code = 52736-6] Goal Plan of Care Note [code = 58761-9] Goal Plan of Care Note [code = 26284-1] Goal Plan of Care Note [code = 35897-9] Goal Plan of Care Note [code = 60497-2] Goal Plan of Care Note [code = 28833-7] Goal Plan of Care Note [code = 32656-9] Goal Plan of Care Note [code = 20533-0] Goal Plan of Care Note [code = 07181-7] Goal Plan of Care Note [code = 69810-2] Goal Plan of Care Note [code = 50395-9] Goal Plan of Care Note [code = 79512-0] Goal Plan of Care Note [code = 59838-4] Goal Plan of Care Note [code = 83732-0] Goal Plan of Care Note [code = 92424-2] Goal Plan of Care Note [code = 00657-1] Goal Plan of Care Note [code = 37571-4] Goal Plan of Care Note [code = 34996-0] Goal Plan of Care Note [code = 65078-6] Goal Plan of Care Note [code = 62680-9] Goal Plan of Care Note [code = 78040-5] Goal Plan of Care Note [code = 23110-9] Goal Plan of Care Note [code = 16346-5] Goal Plan of Care Note [code = 30970-1] Goal Plan of Care Note [code = 40262-7] Goal Plan of Care Note [code = 75879-3] Goal Plan of Care Note [code = 60247-0] Goal Plan of Care Note [code = 96654-5] Goal Plan of Care Note [code = 93492-3] Goal Plan of Care Note [code = 70071-5] Goal Plan of Care Note [code = 32017-9] Goal Plan of Care Note [code = 84778-7] Goal Plan of Care Note [code = 46323-2] Goal Plan of Care Note [code = 63107-7] Goal Plan of Care Note [code = 16066-1] Goal Plan of Care Note [code = 61677-6] Goal Plan of Care Note [code = 38685-9] Goal Plan of Care Note [code = 84591-9] Goal Plan of Care Note [code = 22884-7] Goal Plan of Care Note [code = 98535-4] Goal Plan of Care Note [code = 76629-5] Goal Plan of Care Note [code = 59896-0] Goal Plan of Care Note [code = 71869-3] Goal Plan of Care Note [code = 73288-5] Goal Plan of Care Note [code = 94748-0] Goal Plan of Care Note [code = 81652-8] Goal Plan of Care Note [code = 40138-2] Goal Plan of Care Note [code = 93430-7] Goal Plan of Care Note [code = 48191-5] Goal Plan of Care Note [code = 22513-7] Goal Plan of Care Note [code = 92430-1] Goal Plan of Care Note [code = 10329-4] Goal Plan of Care Note [code = 24412-5] Goal Plan of Care Note [code = 28007-3] Goal Plan of Care Note [code = 78398-3] Goal Plan of Care Note [code = 21730-0] Goal Plan of Care Note [code = 46285-2] Goal Plan of Care Note [code = 93495-5] Goal Plan of Care Note [code = 27310-8] Goal Plan of Care Note [code = 28989-3] Goal Plan of Care Note [code = 58086-7] Goal Plan of Care Note [code = 46446-0] Goal Plan of Care Note [code = 43820-6] Goal Plan of Care Note [code = 19791-5] Goal Plan of Care Note [code = 97954-2] Goal Plan of Care Note [code = 49427-8] Goal Plan of Care Note [code = 94263-9] Goal Plan of Care Note [code = 45609-9] Goal Plan of Care Note [code = 36047-7] Goal Plan of Care Note [code = 97619-2] Goal Plan of Care Note [code = 44636-3] Goal Plan of Care Note [code = 22215-7] Goal Plan of Care Note [code = 70777-2] Goal Plan of Care Note [code = 08903-7] Goal Plan of Care Note [code = 36384-0] Goal Plan of Care Note [code = 29427-5] Goal Plan of Care Note [code = 19033-6] Goal Plan of Care Note [code = 67831-2] Goal Plan of Care Note [code = 09999-0] Goal Plan of Care Note [code = 19475-2] Goal Plan of Care Note [code = 35994-4] Goal Plan of Care Note [code = 79424-9] Goal Plan of Care Note [code = 64902-9] Goal Plan of Care Note [code = 24066-7] Goal Plan of Care Note [code = 62852-5] Goal Plan of Care Note [code = 17112-7] Goal Plan of Care Note [code = 21852-3] Goal Plan of Care Note [code = 18795-1] Goal Plan of Care Note [code = 96710-5] Goal Plan of Care Note [code = 12153-3] Goal Plan of Care Note [code = 05877-1] Goal Plan of Care Note [code = 16645-8] Goal Plan of Care Note [code = 05338-6] Goal Plan of Care Note [code = 26895-6] Goal Plan of Care Note [code = 00639-1] Goal Plan of Care Note [code = 30517-8] Goal Plan of Care Note [code = 08059-7] Goal Plan of Care Note [code = 23555-4] Goal Plan of Care Note [code = 67701-5] Goal Plan of Care Note [code = 58260-6] Goal Plan of Care Note [code = 98151-5] Goal Plan of Care Note [code = 47134-8] Goal Plan of Care Note [code = 97549-8] Goal Plan of Care Note [code = 13211-3] Goal Plan of Care Note [code = 22839-9] Goal Plan of Care Note [code = 63921-0] Goal Plan of Care Note [code = 12368-1] Goal Plan of Care Note [code = 59042-7] Goal Plan of Care Note [code = 05299-5] Goal Plan of Care Note [code = 76521-3] Goal Plan of Care Note [code = 49403-5] Goal Plan of Care Note [code = 94289-3] Goal Plan of Care Note [code = 43746-3] Goal Plan of Care Note [code = 97514-3] Goal Plan of Care Note [code = 74099-1] Goal Plan of Care Note [code = 35027-7] Goal Plan of Care Note [code = 48672-5] Goal Plan of Care Note [code = 34404-4] Goal Plan of Care Note [code = 51828-9] Goal Plan of Care Note [code = 26191-9] Goal Plan of Care Note [code = 13320-6] Goal Plan of Care Note [code = 40567-9] Goal Plan of Care Note [code = 95643-9] Goal Plan of Care Note [code = 51348-6] Goal Plan of Care Note [code = 14383-0] Goal Plan of Care Note [code = 87120-1] Goal Plan of Care Note [code = 74263-2] Goal Plan of Care Note [code = 21769-5] Goal Plan of Care Note [code = 71246-0] Goal Plan of Care Note [code = 94586-3] Goal Plan of Care Note [code = 85892-8] Goal Plan of Care Note [code = 15850-4] Goal Plan of Care Note [code = 61832-5] Goal Plan of Care Note [code = 37604-9] Goal Plan of Care Note [code = 41805-4] Goal Plan of Care Note [code = 86101-5] Goal Plan of Care Note [code = 94755-7] Goal Plan of Care Note [code = 69892-0] Goal Plan of Care Note [code = 07183-6] Goal Plan of Care Note [code = 84331-6] Goal Plan of Care Note [code = 35255-3] Goal Plan of Care Note [code = 59070-0] Goal Plan of Care Note [code = 89182-5] Goal Plan of Care Note [code = 55567-5] Goal Plan of Care Note [code = 46373-3] Goal Plan of Care Note [code = 99064-1] Goal Plan of Care Note [code = 20305-9] Goal Plan of Care Note [code = 26471-3] Goal Plan of Care Note [code = 21258-4] Goal Plan of Care Note [code = 09652-7] Goal Plan of Care Note [code = 05496-0] Goal Plan of Care Note [code = 25613-1] Goal Plan of Care Note [code = 00608-2] Goal Plan of Care Note [code = 54323-3] Goal Plan of Care Note [code = 78798-0] Goal Plan of Care Note [code = 15433-6] Goal Plan of Care Note [code = 78522-3] Goal Plan of Care Note [code = 23014-6] Goal Plan of Care Note [code = 79441-3] Goal Plan of Care Note [code = 95532-9] Goal Plan of Care Note [code = 84792-5] Goal Plan of Care Note [code = 56075-6] Goal Plan of Care Note [code = 12033-4] Goal Plan of Care Note [code = 97333-0] Goal Plan of Care Note [code = 56139-8] Goal Plan of Care Note [code = 74354-0] Goal Plan of Care Note [code = 68561-1] Goal Plan of Care Note [code = 16411-0] Goal Plan of Care Note [code = 77346-6] Goal Plan of Care Note [code = 39193-1] Goal Plan of Care Note [code = 52217-1] Goal Plan of Care Note [code = 91289-8] Goal Plan of Care Note [code = 79137-8] Goal Plan of Care Note [code = 85473-3] Goal Plan of Care Note [code = 46752-7] Goal Plan of Care Note [code = 26328-8] Goal Plan of Care Note [code = 51953-8] Goal Plan of Care Note [code = 86882-1] Goal Plan of Care Note [code = 53762-4] Goal Plan of Care Note [code = 76123-7] Goal Plan of Care Note [code = 06995-7] Goal Plan of Care Note [code = 71817-2] Goal Plan of Care Note [code = 53884-0] Goal Plan of Care Note [code = 38198-4] Goal Plan of Care Note [code = 23071-5] Goal Plan of Care Note [code = 21504-5] Goal Plan of Care Note [code = 69274-7] Goal Plan of Care Note [code = 84862-1] Goal Plan of Care Note [code = 30487-7] Goal Plan of Care Note [code = 80902-0] Goal Plan of Care Note [code = 53659-8] Goal Plan of Care Note [code = 91956-3] Goal Plan of Care Note [code = 84578-9] Goal Plan of Care Note [code = 70402-0] Goal Plan of Care Note [code = 69650-7] Goal Plan of Care Note [code = 51719-4] Goal Plan of Care Note [code = 75564-7] Goal Plan of Care Note [code = 81684-4] Goal Plan of Care Note [code = 36102-3] Goal Plan of Care Note [code = 43970-0] Goal Plan of Care Note [code = 42781-0] Goal Plan of Care Note [code = 75618-4] Goal Plan of Care Note [code = 15613-0] Goal Plan of Care Note [code = 95278-4] Goal Plan of Care Note [code = 30630-6] Goal Plan of Care Note [code = 31942-8] Goal Plan of Care Note [code = 34358-2] Goal Plan of Care Note [code = 68772-5] Goal Plan of Care Note [code = 05390-7] Goal Plan of Care Note [code = 32890-5] Goal Plan of Care Note [code = 35673-0] Goal Plan of Care Note [code = 40954-0] Goal Plan of Care Note [code = 05501-0] Goal Plan of Care Note [code = 21864-3] Goal Plan of Care Note [code = 71837-7] Goal Plan of Care Note [code = 98852-3] Goal Plan of Care Note [code = 45911-9] Goal Plan of Care Note [code = 06282-0] Goal Plan of Care Note [code = 57671-8] Goal Plan of Care Note [code = 03196-4] Goal Plan of Care Note [code = 47514-6] Goal Plan of Care Note [code = 43619-7] Goal Plan of Care Note [code = 75947-9] Goal Plan of Care Note [code = 23338-3] Goal Plan of Care Note [code = 91295-7] Goal Plan of Care Note [code = 89321-9] Goal Plan of Care Note [code = 44976-9] Goal Plan of Care Note [code = 78514-2] Goal Plan of Care Note [code = 82427-2] Goal Plan of Care Note [code = 94093-3] Goal Plan of Care Note [code = 32521-5] Goal Plan of Care Note [code = 91378-6] Goal Plan of Care Note [code = 22650-4] Goal Plan of Care Note [code = 22930-1] Goal Plan of Care Note [code = 62590-2] Goal Plan of Care Note [code = 92338-8] Goal Plan of Care Note [code = 08786-4] Goal Plan of Care Note [code = 06513-4] Goal Plan of Care Note [code = 45013-0] Goal Plan of Care Note [code = 24731-1] Goal Plan of Care Note [code = 94399-6] Goal Plan of Care Note [code = 40293-4] Goal Plan of Care Note [code = 98455-3] Goal Plan of Care Note [code = 29026-5] Goal Plan of Care Note [code = 81841-8] Goal Plan of Care Note [code = 12404-1] Goal Plan of Care Note [code = 27490-5] Goal Plan of Care Note [code = 61493-4] Goal Plan of Care Note [code = 15951-1] Goal Plan of Care Note [code = 12554-3] Goal Plan of Care Note [code = 86897-0] Goal Plan of Care Note [code = 92697-9] Goal Plan of Care Note [code = 45419-9] Goal Plan of Care Note [code = 50858-6] Goal Plan of Care Note [code = 85191-6] Goal Plan of Care Note [code = 27723-4] Goal Plan of Care Note [code = 49709-7] Goal Plan of Care Note [code = 15786-7] Goal Plan of Care Note [code = 08500-6] Goal Plan of Care Note [code = 09538-4] Goal Plan of Care Note [code = 54312-5] Goal Plan of Care Note [code = 94154-1] Goal Plan of Care Note [code = 46161-1] Goal Plan of Care Note [code = 62834-8] Goal Plan of Care Note [code = 75752-5] Goal Plan of Care Note [code = 69357-0] Goal Plan of Care Note [code = 72321-9] Goal Plan of Care Note [code = 79820-1] Goal Plan of Care Note [code = 54186-2] Goal Plan of Care Note [code = 42256-1] Goal Plan of Care Note [code = 38267-5] Goal Plan of Care Note [code = 19734-6] Goal Plan of Care Note [code = 73727-1] Goal Plan of Care Note [code = 95720-7] Goal Plan of Care Note [code = 11514-7] Goal Plan of Care Note [code = 73419-8] Goal Plan of Care Note [code = 70598-6] Goal Plan of Care Note [code = 27972-8] Goal Plan of Care Note [code = 43055-1] Goal Plan of Care Note [code = 40233-1] Goal Plan of Care Note [code = 81929-5] Goal Plan of Care Note [code = 55390-8] Goal Plan of Care Note [code = 50568-8] Goal Plan of Care Note [code = 13680-7] Goal Plan of Care Note [code = 36930-5] Goal Plan of Care Note [code = 08874-6] Goal Plan of Care Note [code = 48037-3] Goal Plan of Care Note [code = 17219-9] Goal Plan of Care Note [code = 77225-4] Goal Plan of Care Note [code = 34829-9] Goal Plan of Care Note [code = 88934-4] Goal Plan of Care Note [code = 16588-9] Goal Plan of Care Note [code = 69748-1] Goal Plan of Care Note [code = 64850-2] Goal Plan of Care Note [code = 88817-7] Goal Plan of Care Note [code = 65079-4] Goal Plan of Care Note [code = 66175-7] Goal Plan of Care Note [code = 95962-5] Encounters Start End Encounter Admission Attending Care Care Encounter Source Date/Time Date/Time Type Type Clinicians Facility Department ID 2021-05-10 Emergency [facility] [id number] Univers 15:04:50 [facility] 2021-05-08 Emergency [facility] [id number] Univers 16:08:38 ity [facility] 2020-08-08 Inpatient ERICA QuirogaKayleey HCAT[facility] RADI [id number] [facility] 15:30:00 [facility] 2020-08-02 Inpatient HCATO CARISSA [id number] [facility] 13:01:00 80 [facility] 2020-02-13 Inpatient HCATO CARISSA [id number] [facility] 19:15:00 41 [facility] 2020-01-16 [id number] 16:00:00 Tomiko 97 [facility] 2023-07-06 2023-07-06 Outpatient ORLY THORPE ANDREEA BRAGA [id number] Andree[place] 15:45:00 15:45:00 Seybol d 2023-03-30 2023-03-30 Outpatient ANDREEA CUTLER [id number] [place] 13:15:00 13:15:00 AMNA Seybol d 2023-03-29 2023-03-29 Outpatient ANDREEA PEOPLES [id number] [place] 16:15:00 16:15:00 NETO Seybol d 2023-03-21 2023-03-21 Outpatient LAB90 ANDREEA BRAGA [id number] [place] 08:00:00 08:00:00 Seybol d 2023-03-18 2023-03-18 Outpatient MELONY BRAGA [id number] [place] 00:00:00 00:00:00 MD CASANDRA Seybol d 2023-03-18 2023-03-18 Outpatient ANDREEA PEOPLES [id number] [place] 00:00:00 00:00:00 NETO Seybol d 2023-03-09 2023-03-09 Outpatient ANDREEA BLOCK [id number] [place] 08:40:00 08:40:00 KAVYA Seybol d 2023-03-04 2023-03-04 Outpatient ANDREEA MINOR [id number] [place] 14:30:00 14:30:00 VALDEZ Seybol d 2023-03-02 2023-03-02 Outpatient ANDREEA EID [id number] [place] 00:00:00 00:00:00 NICOLÁS Seybol d 2023-03-01 2023-03-01 Outpatient FREDRICK ALCALA [id number] Huang 11:57:21 11:57:21 0822 F Quirino 2023-02-28 2023-02-28 Outpatient ANDREEA RAIN [id number] [place] 15:45:00 15:45:00 ARLENE Seybol d 2023-02-18 2023-02-18 Outpatient ANDREEA MINOR ANDREEA [id number] [place] 00:00:00 00:00:00 VALDEZ Seybol d 2023-02-18 2023-02-18 Outpatient MILY ANDREEA BRAGA [id number] [place] 00:00:00 00:00:00 VALDEZ Seybol d 2023-02-17 2023-02-17 Outpatient LAB90 ANDREEA BRAGA [id number] [place] 17:15:00 17:15:00 Seybol d 2023-02-17 2023-02-17 Outpatient MILY ANDREEA BRAGA [id number] [place] 16:30:00 16:30:00 VALDEZ Seybol d 2023-02-16 2023-02-16 Outpatient [facility] [id number] Huang 13:31:17 13:31:17 0809 F Quirino 2023-02-16 2023-02-16 Outpatient ANDREEA PEOPLES [id number] [place] 00:00:00 00:00:00 NETO Seybol d 2023-02-16 2023-02-16 Outpatient ANDREEA PEOPLES [id number] [place] 00:00:00 00:00:00 NETO Seybol d 2023-02-10 2023-02-10 Outpatient ANDREEA PEOPLES [id number] [place] 00:00:00 00:00:00 NETO Seybol d 2023-02-02 2023-02-02 Outpatient ORLY THORPE [id number] [place] 14:30:00 14:30:00 Seybol d 2023-02-02 2023-02-02 Outpatient ANDREEA PEOPLES [id number] [place] 00:00:00 00:00:00 NETO Seybol d 2023-02-01 2023-02-01 Outpatient ZOYA GONZALEZ 122 [id number] [place] 15:00:00 15:00:00 Seybol d 2023-02-01 2023-02-01 Outpatient ANDREEA EID [id number] [place] 14:30:00 14:30:00 NICOLÁS Seybol d 2023-01-10 2023-01-12 Outpatient JAVIER HOOKER ANTONIO [id number] Univers 07:31:00 11:08:00 GUDELIA diaz [facility] 2023-01-10 2023-01-12 Emergency SchgarricknsNgoc espinoza [facility] 1.2.8 40.114 [id number] Univers 07:31:00 11:08:00 Gudelia Garcia 350.1.13.10 [facility] 4.2.7.2.686 [facility] [id number] [address] 2023-01-04 2023-01-04 Outpatient ORLY THORPE 122 [id number] [place] 15:45:00 15:45:00 Seybol d 2022-12-27 2022-12-27 Outpatient ANDREEA PEOPLES [id number] [place] 00:00:00 00:00:00 NETO Seybol d 2022-12-22 2022-12-22 Outpatient ANDREEA PEOPLES [id number] [place] 00:00:00 00:00:00 NETO Seybol d 2022-12-21 2022-12-21 Outpatient ANDREEA EID [id number] [place] 14:15:00 14:15:00 NICOLÁS Seybol d 2022-12-17 2022-12-17 Outpatient LAB90 ANDREEA BRAGA [id number] [place] 15:45:00 15:45:00 Seybol d 2022-12-17 2022-12-17 Outpatient ANDREEA PEOPLES [id number] [place] 15:00:00 15:00:00 NETO Seybol d 2022-12-15 2022-12-15 Outpatient LAB90 ANDREEA BRAGA [id number] [place] 08:30:00 08:30:00 Seybol d 2022-12-07 2022-12-07 Outpatient MELONY BRAGA [id number] [place] 00:00:00 00:00:00 MD CASANDRA Seybol d 2022-11-30 2022-11-30 Outpatient ANDREEA MCCLELLAND [id number] [place] 13:50:00 13:50:00 JUDI Seybol d 2022-11-29 2022-11-29 Outpatient ANDREEA MORRISON [id number] [place] 00:00:00 00:00:00 IVELISSE Seybol d 2022-11-29 2022-11-29 Outpatient ANDREEA BRAGA [id number] Adnreea 00:00:00 00:00:00 Seybol d 2022-11-29 2022-11-29 Outpatient PREANDREEA ROLLINS [id number] [place] 00:00:00 00:00:00 NETO Seybol d 2022-11-24 2022-11-24 Outpatient PREANDREEA ROLLINS [id number] [place] 15:00:00 15:00:00 NETO Seybol d 2022-11-03 2022-11-[address] [facility] 1.2.106.860 [id number] Univers 08:26:00 11:02:00 Katelyn BARBER 350.1.13.10 i [facility] 4.2.7.2.686 [facility] [id number] [address] 2022-11-03 2022-11-[address] [facility] ERT [id number] Univers 08:26:00 11:02:00 KATELYN diaz [facility] 2022-11-01 2022-11-01 Outpatient [facility] [id number] Huang 16:16:49 16:16:49 0424 F Quirino 2022-11-01 2022-11-01 Outpatient ANDREEA PEOPLES [id number] [place] 16:00:00 16:00:00 NETO Seybol d 2022-11-01 2022-11-01 Outpatient ANDREEA PEOPLES [id number] [place] 00:00:00 00:00:00 NETO Seybol d 2022-10-27 2022-10-27 Outpatient ANDREEA ZAMORA [id number] [place] 14:00:00 14:00:00 FABIO Seybol d 2022-10-26 2022-10-26 Outpatient ANDREEA PEOPLES [id number] [place] 00:00:00 00:00:00 NETO Seybol d 2022-10-26 2022-10-26 Outpatient PREZASANDREEA [id number] [place] 00:00:00 00:00:00 NETO Seybol d 2022-10-22 2022-10-22 Outpatient RAGINIANDREEA HAMLIN [id number] [place] 16:45:00 16:45:00 NICOLÁS Seybol d 2022-10-21 2022-10-21 Outpatient THORPEORLY MALDONADO ANDREEA BRAGA [id number] [place] 10:00:00 10:00:00 Seybol d 2022-10-01 2022-10-01 Outpatient PREZASANDREEA [id number] [place] 15:45:00 15:45:00 NETO Seybol d 2022-09-24 2022-09-24 Outpatient JARBRINK-SE ANDREEA BRAGA [id number] [place] 15:00:00 15:00:00 HGYRIS MARIE Se ybold 2022-09-21 2022-09-21 Outpatient PREZASANDREEA [id number] [place] 15:00:00 15:00:00 NETO Seybol d 2022-09-20 2022-09-20 Outpatient PREZASANDREEA [id number] [place] 00:00:00 00:00:00 NETO Seybol d 2022-09-10 2022-09-10 Outpatient RAGINIANDREEA HAMLIN [id number] Anrdeea 10:30:00 10:30:00 NICOLÁS Seybol d 2022-09-09 2022-09-09 Outpatient PREZASANDREEA [id number] [place] 00:00:00 00:00:00 NETO Seybol d 2022-09-09 2022-09-09 Outpatient PREZASANDREEA [id number] [place] 00:00:00 00:00:00 NETO Seybol d 2022-09-08 2022-09-08 Outpatient LAB90 ANDREEA BRAGA [id number] [place] 08:00:00 08:00:00 Seybol d 2022-09-07 2022-09-07 Outpatient PREZASANDREEA [id number] [place] 15:00:00 15:00:00 NETO Seybol d 2022-09-01 2022-09-01 Transition JIE Hargrove 1.2.840.114 [id number] Univers 00:00:00 00:00:00 of Care Leslie NICKY 350.1.13.10 i [place] [id number] [facility] [address] 2022-08-26 2022-08-30 Inpatient X KAMALA [facility] [id number] Univers 14:36:00 10:41:00 MERI emily [facility] 2022-08-26 2022-08-30 [facility] Robert Lutz [facility] 1.2.840. 114 [id number] Univers 14:36:00 10:41:00 Encounter LraisadeanMeri 350.1.13.10 ity of [facility] [place] [id number] [facility] [address] 2022-07-09 2022-07-09 Outpatient [facility] [id number] Huang 09:41:12 09:41:12 1230 [place] 2022-07-09 2022-07-09 Outpatient [id number]- [id number] 9d 79575q-d 00:00:00 00:00:00 Visit x32j-5uo6 40c-4fc9-a -b9hq-208 8bb-636dec ymdo5443l c8239r 2022-06-23 2022-06-23 Outpatient mp4c36ky- [id number] 7a46cv-1 00:00:00 00:00:00 Visit 2d1j-04z1 g7j-55w6-r -l2a4-k73 8p7-p313ql 5xt1v5805 7h1405 2022-06-21 2022-06-21 [facility] [id number] Univers 17:30:00 23:11:00 KATELYN diaz [facility] 2022-06-21 2022-06-21 [facility] 1.2.514.436 [id number] Univers 17:30:00 23:11:00 Katelyn BARBER 350.1.13.10 i [facility] 4.2.7.2.686 [facility] [id number] [facility] [address] [place] 2022-06-18 2022-06-18 Outpatient SFA SFA [id number] Huang 10:29:22 10:29:22 1209 F Quirino 2022-06-18 2022-06-18 Outpatient 4zd3vxa0- [id number] 3a j9ufi9-x 00:00:00 00:00:00 Visit le0o-3nb5 x5w-1rl0-l -d705-c38 058-m9026d 89tuff566 fet002 2022-06-17 2022-06-17 Outpatient SFA SFA [id number] Huang 08:29:59 08:29:59 1208 F Quirino 2022-06-16 2022-06-16 Outpatient SFA SFA [id number] 022 Huang 15:41:26 15:41:26 1207 F Quirino 2022-06-16 2022-06-16 Outpatient 7y641i4g- [id number] 2f 187i3i-r 00:00:00 00:00:00 Visit dee3-4499 ee3-4499-9 -917d-e2d 17d-n8w173 15158576s 16630g 2022-06-04 2022-06-04 Outpatient SFA SFA [id number] 022 Huang 11:59:44 11:59:44 1125 F Quirino 2022-06-02 2022-06-02 Outpatient 04t25r4d- [id number] z40c3y-8 00:00:00 00:00:00 Visit 756a-4a2e 56a-4a2e-b -l202-s71 549-c4688m 37f0414w3 9815d6 2022-04-29 2022-04-29 Outpatient SFA SFA [id number] 022 Huang 08:03:25 08:03:25 1020 F Quirino 2022-04-29 2022-04-29 Outpatient [id number]- [id number] 4ht119-4 00:00:00 00:00:00 Visit 2ij5-1x19 bd7-4b85-9 -940e-c2d 40e-c2dfc3 fy4258749 612736 4288-10-14 2022-04-23 Outpatient yt7f2798- [id number] bf 7m3127-m 00:00:00 00:00:00 Visit si20-8tqa y07-0rzx-1 -924a-d01 24a-d01f5f o7a1qu91p 4eb17f 2022-04-09 2022-04-09 Outpatient [facility] [id number] Ruddy Encinas 08:02:18 08:02:18 0930 F Quirino 2022-04-09 2022-04-09 Outpatient [id number]- [id number] c2 c75157-8 00:00:00 00:00:00 Visit 2c98-99o3 y74-14p1-2 -8750-031 750-0319bb 4aoac7061 iu4336 2022-03-29 2022-03-29 Outpatient [id number]- [id number] 130061-r 00:00:00 00:00:00 Visit m534-51k8 701-46a9-a -j9v8-k52 9u9-n30175 5908f16u7 3d26f8 2022-03-16 2022-03-16 [facility] 1.2.840.1 [id number] 2100 [id number] Methodi 00:00:00 00:00:[address] [place] 3.430.2.7 Hospit a Arik .3.733107 l .8 2022-03-11 2022-03-11 [facility]phone [facility] 1.2.840.1 [id number] 2099 360244 Methodi 00:00:00 00:00:[address] [place]i 3.430.2.7 Hospit a Arik .3.200901 l .8 2022-03-09 2022-03-09 Outpatient k0g80372- [id number] d6 p65900-t 00:00:00 00:00:00 Visit q45b-542a 56a-450d-9 -5i1g-66i a2u-13p538 258a26232 b41856 2022-01-20 2022-01-20 Outpatient 2tf36fcj- [id number] 0f b99mym-1 00:00:00 00:00:00 Visit 8baf-464d baf-464d-a -g43s-806 91e-20241p 67jubf54r aeb84a 2021-10-16 2021-10-16 [facility] [id number] Univers 16:39:00 22:23:00 BEATRIZ diaz [facility] 2021-10-16 2021-10-16 Emergency [facility] 1.2.261.281 [id number] Univers 16:39:00 22:23:00 Beatriz BARBER 350.1.13.10 emily [facility] 4.2.7.2.686 [facility] [id number] [address] 2021-09-22 2021-09-22 Emergency X [facility] ERT [id number] Univers 09:56:00 12:05:00 JN diaz [facility] 2021-09-22 2021-09-22 Emergency [facility] 1.2.535.904 [id number] Univers 09:56:00 12:05:00 Jn BARBER 350.1.13.10 i ty kristyn [facility] 4.2.7.2.686 [facility] [id number] [address] 2021-08-20 2021-08-20 [facility] 1.2.840.114 [id number] Univers 00:00:00 00:00:00 [facility] 350.1.13.10 it y kristyn [facility] 4.2.7.2.686 Blake as DANIELITO?BLEA [id number] [address] MEDICAL OFFICE BUILDING 2021-07-31 2021-07-31 Outpatient ERICA Quiroga Bebeto [id number] [id number] 05:47:00 05:47:00 00 [facility] 2021-06-18 2021-06-18 Emergency X KENYA [facility] ERT [id number] Univers 04:31:00 08:25:00 FOZIA diaz [facility] 2021-06-18 2021-06-18 Emergency [facility] 1.2.496.590 [id number] Univers 04:31:00 08:25:00 Fozia Nakul SUNIL 350.1.13.10 ity of [facility] 4.2.7.2.686 [facility] [id number] [place] [address] [place] 2021-06-10 2021-06-10 Outpatient [facility] [id number] [place] 00:00:00 00:00:[address] 2021-06-10 2021-06-10 Travel 1.2.840.1 1.2.114.507 [id number] Methodi 00:00:00 00:00:[address] 3.430.2.7 0.2.7.3.698 Ho spita .3.529612 084.8 l .8 2021-06-08 2021-06-08 Telephone Ernst, 1.2.840.1 [id number] 2099 [id number] Methodi 00:00:00 00:00:[address] [place] 3.430.2.7 Hospit a Arik .3.880863 l .8 2021-05-30 2021-05-30 [facility] [id number] Univers 15:49:00 19:42:00 MARY ity of [facility] 2021-05-30 2021-05-30 Emergency [facility] 1.2.076.659 [id number] Univers 15:49:00 19:42:00 Mary Rhodes SUNIL 350.1.13.10 i ty of [facility] 4.2.7.2.686 [facility] [id number] [place] [address] [place] 2021-03-17 2021-03-17 Cam Grijalva [facility] 1.2.725.384 [id number] Univers 00:00:00 00:00:00 Doron Barber 350.1.13.10 i ty of [place] 4.2.7.2.686 [facility] Professio [id number] Pa dical [address] 2021-02-27 2021-02-27 Outpatient R GRIJALVA, [facility] [id number] Univers 15:00:00 15:00:00 DORON isaac [facility] 2020-12-23 2020-12-23 Outpatient R ROBBIE, [facility] [id number] Univers 16:00:00 16:00:00 FABIO [facility] 2020-12-10 2020-12-10 Outpatient R GONZALEZ, [facility] [id number] Univers 09:00:00 09:53:04 SENDYAKELIN [facility] 2020-12-02 2020-12-04 Outpatient X KENYA, [facility] ANTONIO [id number] Univers 19:53:00 17:23:00 ALEXDONG [facility] 2020-11-07 2020-11-07 [facility] [id number] Univers 13:30:00 13:30:00 DORON [facility] 2020-06-02 2020-06-02 [facility]phone [facility] 1.2.840.114 [id number] 00:00:00 00:00:00 Lily Barber 350.1.13.10 [place] 4.2.7.2.686 Professio [id number] [address] 2020-05-29 2020-05-29 Outpatient [facility] [id number] Univers 15:15:00 15:15:00 LESLEE [facility] 2020-05-27 2020-05-27 Office [facility] 1.2.405.206 [id number] 10:59:24 11:54:17 Visit Lily Barber 350.1.13.10 [place] 4.2.7.2.686 Professio [id number] [address] 2020-05-27 2020-05-27 [facility] [id number] Univers 10:45:00 10:45:00 LILY [facility] 2020-05-27 2020-05-27 Orders Doctor JACOBS 1.2.840.114 [id number] 00:00:00 00:00:00 Only Unassigned, BENITA 350.1.13.10 [place] [facility] 4.2.7.2.686 [id number] 009 2020-01-10 2020-01-10 Outpatient TIANA Wilson [id number] [facility] 18:46:00 18:46:00 Tomiko 24 [facility] 2020-01-04 2020-01-04 Outpatient DINAH Wilson RADI [id number] [facility] 13:00:00 13:00:00 Tomiko 18 [place] [facility] 2019-12-12 2019-12-12 Outpatient R CORINNE, [facility] [id number] [facility] [place] 16:30:00 16:30:00 STANISLAW [facility] 2019-12-07 2019-12-07 Outpatient Anupama GRIJALVA, [facility] [id number] [facility] [place] 09:00:00 09:00:00 DORON [facility] 2019-11-22 2019-11-22 Outpatient [facility] [id number] [place] 00:00:00 00:00:00 SILVINA 303 [place] 2019-11-06 2019-11-06 [facility] [id number] [place] 00:00:00 00:00:00 SILVINA 632 [place] 2019-11-01 2019-11-01 [facility]patient [facility] [id number] [place] 00:00:00 00:00:00 SILVINA 554 [place] 2019-10-30 2019-10-30 Outpatient GALAN, [facility] [id number] 620 [place] 00:00:00 00:00:00 ABHIJIT 714 Method i 2019-10-18 2019-10-18 [facility]patient [facility] [id number] [place] 00:00:00 00:00:00 SILVINA 629 [place] 2019-10-02 2019-10-02 Outpatient [facility] [id number] [place] 00:00:00 00:00:00 SILVINA 105 [place] di 2019-10-01 2019-10-01 Outpatient [facility] [id number] [place] 00:00:00 00:00:00 SILVINA 439 Metho di 2019-09-19 2019-09-19 [facility]patient [facility] [id number] [place] 00:00:00 00:00:00 SILVINA 116 Metho di 2019-09-11 2019-09-11 Outpatient Anupama CORINNE [facility] [id number] [facility] 10:30:00 10:30:00 STANISLAW [facility] 2019-09-10 2019-09-10 Outpatient ANGELIA, [facility] [id number] [place] 00:00:00 00:00:00 ABHIJIT 420 Method i 2019-09-10 2019-09-10 Outpatient ERNST, [facility] [id number] [place] 00:00:00 00:00:00 SILVINA 373 Metho di 2019-09-10 2019-09-10 Outpatient ERNST [facility] [id number] [place] 00:00:00 00:00:00 SILVINA 354 Metho di 2019-08-23 2019-08-23 Outpatient [facility] [id number] [facility] 16:15:00 10:31:44 [facility] 2019-08-15 2019-08-15 Outpatient Anupama [facility] [id number] Univers 09:15:00 09:44:35 [facility] 2019-07-07 2019-07-07 Emergency X YALAURENJENNIFER, [facility] ERT [id number] Univers 10:13:53 13:06:00 FOZIA [facility] 2010-08-05 2010-08-07 Inpatient OUTP John Kit [facility] [id number] [facility] 16:20:00 14:00:00 00 [facility] Results Test Description Test Time Test Comments Results Result Comments Source POCT GLUCOSE (AUTOMATED) 2023-01-12 12:35:42 Test Item Value Reference Range Interpretation Comme nts POCT GLU (test code = 4276264859) 179 mg/dL 70-110 H Lab Interpretation (test code = 24402-2) Abnormal [facility] GLUCOSE (AUTOMATED)2023-01-12 02:35:59 Test Item Value Reference Range Interpretation Comments POCT GLU (test code = 3683243471) 267 mg/dL 70-110 H Lab Interpretation (test code = Abnormal 79266-3) [facility] GLUCOSE (AUTOMATED)2023-01-11 21:21:17 Test Item Value Reference Range Interpretation Comments POCT GLU (test code = 4508742737) 276 mg/dL 70-110 H Lab Interpretation (test code = Abnormal 84235-6) [facility] GLUCOSE (AUTOMATED)2023-01-11 16:26:50 Test Item Value Reference Range Interpretation Comments POCT GLU (test code = 6013211788) 114 mg/dL 70-110 H Lab Interpretation (test code = Abnormal 60834-5) [facility] GLUCOSE (AUTOMATED)2023-01-11 12:44:00 Test Item Value Reference Range Interpretation Comments POCT GLU (test code = 9291633579) 142 mg/dL 70-110 H Lab Interpretation (test code = Abnormal 83543-0) [facility] GLUCOSE (AUTOMATED)2023-01-11 02:08:20 Test Item Value Reference Range Interpretation Comments POCT GLU (test code = 4819067935) 97 mg/dL 70-110 Lab Interpretation (test code = Normal 18169-1) [facility]19 Test Item Value Reference Range Interpretation Comments TRIG (test code = 8510878168) 427 mg/dL 30-170 H Lab Interpretation (test code = Abnormal 67345-5) [facility] (84153)2023-01-10 14:22:41 Test Item Value Reference Range Interpretation Comments NA (test code = 138 mmol/L 135-145 6585956967) K (test code = 4.6 mmol/L 3.5-5.0 1940914704) CL (test code = 102 mmol/L 98-108 7699751428) CO2 TOTAL (test code = 21 mmol/L 23-31 L 3836822233) AGAP (test code = 15 2-16 1665040357) BUN (test code = 24 mg/dL 7-23 H 0466116804) GLUCOSE (test code = 158 mg/dL 70-110 H 9071866976) CREATININE (test code = 0.82 mg/dL 0.50-1.04 2851860847) TOTAL BILI (test code = 0.4 mg/dL 0.1-1.1 1457111142) CALCIUM (test code = 9.4 mg/dL 8.6-10.6 1833709948) T PROTEIN (test code = 7.9 g/dL 6.3-8.2 7976646246) ALBUMIN (test code = 4.7 g/dL 3.5-5.0 5595403644) ALK PHOS (test code = 42 U/L 34-122 5588825284) ALTv (test code = 32 U/L 5-35 1742-6) AST(SGOT) (test code = 27 U/L 13-40 0493334580) eGFR (test code = 75.7 mL/min/1.73m2 6956978978) CALVIN (test code = CALVIN) Association of [...] tests). Lab Interpretation Abnormal (test code = 77361-0) [facility]41 Test Item Value Reference Range Interpretation Comments LIPASE (test code = 2205024889) 682 U/L 0-220 H Lab Interpretation (test code = Abnormal 00857-2) [facility] [id number] 14:15:28 Test Item Value Reference Range Interpretation [...] RDW-SD (test code = 45.0 fL 39.0-49.9 78362-7) RDW-CV (test code = 14.9 % 12.0-15.5 788-0) PLT (test code = 260 See_Comment [Automated 777-3) message] The sy stem which generated this result transmitted reference range : 166 - 358 10*3/ ?L. The reference r doretha was not used to interpret this result as normal/abnormal . MPV (test code = 9.3 fL 9.5-12.9 L 77126-9) NRBC/100 WBC (test 0.0 See_Comment [Automat ed code = 9756454602) message] The system which generated this result transmitted reference range : 0.0 - 10.0 /100 WBCs. The refer ence range was not u sed to interpret th is result as normal/abnormal . NRBC x10^3 (test code See_Comment [Auto mated = 8246837210) message] The s ystem which generated this result transmitted reference range : 10*3/?L. The reference range was not used to interpret this result as normal/abnormal . GRAN MAT (NEUT) % 51.9 % (test code = 770-8) IMM GRAN % (test code 0.60 % = 0720166086) LYMPH % (test code = 34.7 % 736-9) MONO % (test code = 9.2 % 5905-5) EOS % (test code = 2.5 % 713-8) BASO % (test code = 1.1 % 706-2) GRAN MAT x10^3(ANC) 3.78 10*3/uL 1.88-7.09 (test code = 0774698397) IMM GRAN x10^3 (test 0.04 10*3/uL 0.00-0.06 code = 4139554146) LYMPH x10^3 (test code 2.52 10*3/uL 1.32-3.29 = 731-0) MONO x10^3 (test code 0.67 10*3/uL 0.33-0.92 = 742-7) EOS x10^3 (test code = 0.18 10*3/uL 0.03-0.39 711-2) BASO x10^3 (test code 0.08 10*3/uL 0.01-0.07 H = 704-7) Lab Interpretation Abnormal (test code = 53003-4) [facility] [id number] 13:37:00 Test Item Value Reference Range Interpretation Comments POCT PREG (test code = 1605) Negative On board controls acceptable with C Yes Line (test code = 3574) Lab Interpretation (test code = Normal 93025-3) [facility] STRIP/BLOOD [id number] 00:00:00 Test Item Value Reference Range Interpretation Comments BLOOD SUGAR (test code = 612774) 276 mg/dL 65-99 A Lab Interpretation (test code = Abnormal 67949-4) Andreea Corona - ExternalLIPID PANEL (31615)(TOTAL CHOLESTEROL, TRIGLYCERIDES, HDL)2022-11-03 14:32:57 Test Item Value Reference Range Interpretation Comments CHOL (test code = 236 mg/dL 120-200 H 1319796578) HDL (test code = 32 mg/dL >=50 L 8139448706) HDLC RATIO (test code = 7.4 <=4.5 H 7636735261) TRIG (test code = 667 mg/dL 30-170 H 2273910323) LDL CHOL (test code = Unable to calculate 99418-6) LDL due to elev ated triglyceride le jossy greater than 40 0 mg/dL. VLDL (test code = 133 mg/dL 5-60 H 1518399551) Lab Interpretation Abnormal (test code = 35309-8) [facility] METABOLIC PANEL (NA, K, CL, CO2, GLUCOSE, BUN, CREATININE, CA)2022-11-03 14:18:35 Test Item Value Reference Range Interpretation Comments NA (test code = 139 mmol/L 135-145 4631039685) K (test code = 4.4 mmol/L 3.5-5.0 5768394832) CL (test code = 105 mmol/L 98-108 5551132375) CO2 TOTAL (test code = 23 mmol/L 23-31 8072880909) AGAP (test code = 11 2-16 3654061770) BUN (test code = 12 mg/dL 7-23 8594112611) GLUCOSE (test code = 279 mg/dL 70-110 H 4039387025) CREATININE (test code = 0.59 mg/dL 0.50-1.04 0538269000) CALCIUM (test code = 9.8 mg/dL 8.6-10.6 7054996497) eGFR (test code = 110.7 mL/min/1.73m2 1880455601) CALVIN (test code = CALVIN) Association of [...] tests). Lab Interpretation Abnormal (test code = 12842-3) [facility] (32297) (ALB,T.PRO,BILI T,BU/BC,ALT,AST,ALK PHOS)2022-11-03 14:18:35 Test Item Value Reference Range Interpretation Comments TOTAL BILI (test code = 5769690271) 0.8 mg/dL 0.1-1.1 BILI UNCON (test code = 8002234427) 0.6 mg/dL 0.1-1.1 BILI CONJ (test code = 7490935194) 0.0 mg/dL 0.0-0.3 T PROTEIN (test code = 1201018387) 8.5 g/dL 6.3-8.2 H ALBUMIN (test code = 8454487872) 4.9 g/dL 3.5-5.0 ALK PHOS (test code = 6120227876) 48 U/L 34-122 ALTv (test code = 1742-6) 60 U/L 5-35 H AST(SGOT) (test code = 8598113352) 56 U/L 13-40 H Lab Interpretation (test code = Abnormal 56112-6) [facility] 14:18:15 Test Item Value Reference Range Interpretation Comments LIPASE (test code = 8400943482) 240 U/L 0-220 H Lab Interpretation (test code = Abnormal 29609-0) [facility] TexasCBC WITH [id number] 14:01:29 Test Item Value Reference Range Interpretation Comments WBC (test code = 6.73 See_Comment [Automated 6690-2) message] The sy stem [...] RDW-SD (test code = 39.7 fL 39.0-49.9 27223-7) RDW-CV (test code = 13.0 % 12.0-15.5 788-0) PLT (test code = 252 See_Comment [Automated 777-3) message] The sy stem which generated this result transmitted reference range : 166 - 358 10*3/ ?L. The reference r doretha was not used to interpret this result as normal/abnormal . MPV (test code = 9.4 fL 9.5-12.9 L 78914-9) NRBC/100 WBC (test 0.0 See_Comment [Automat ed code = 1796644188) message] The system which generated this result transmitted reference range : 0.0 - 10.0 /100 WBCs. The refer ence range was not u sed to interpret th is result as normal/abnormal . NRBC x10^3 (test code See_Comment [Auto mated = 3206605867) message] The s ystem which generated this result transmitted reference range : 10*3/?L. The reference range was not used to interpret this result as normal/abnormal . GRAN MAT (NEUT) % 54.5 % (test code = 770-8) IMM GRAN % (test code 0.70 % = 3553833479) LYMPH % (test code = 34.3 % 736-9) MONO % (test code = 7.4 % 5905-5) EOS % (test code = 2.1 % 713-8) BASO % (test code = 1.0 % 706-2) GRAN MAT x10^3(ANC) 3.66 10*3/uL 1.88-7.09 (test code = 9525722887) IMM GRAN x10^3 (test 0.05 10*3/uL 0.00-0.06 code = 1991772895) LYMPH x10^3 (test code 2.31 10*3/uL 1.32-3.29 = 731-0) MONO x10^3 (test code 0.50 10*3/uL 0.33-0.92 = 742-7) EOS x10^3 (test code = 0.14 10*3/uL 0.03-0.39 711-2) BASO x10^3 (test code 0.07 10*3/uL 0.01-0.07 = 704-7) Lab Interpretation Abnormal (test code = 07421-0) [facility] STRIP/BLOOD [id number] 00:00:00 Test Item Value Reference Range Interpretation Comments BLOOD SUGAR (test code = 916057) 260 mg/dL 65-99 A Lab Interpretation (test code = Abnormal 79094-1) Andreea Corona [facility] GLUCOSE (AUTOMATED)2022-08-30 14:54:37 Test Item Value Reference Range Interpretation Comments POCT GLU (test code = 8902586064) 123 mg/dL 70-110 H Lab Interpretation (test code = Abnormal 08856-7) [facility] GLUCOSE (AUTOMATED)2022-08-30 13:07:24 Test Item Value Reference Range Interpretation Comments POCT GLU (test code = 3481768675) 130 mg/dL 70-110 H Lab Interpretation (test code = Abnormal 65292-3) [facility] GLUCOSE (AUTOMATED)2022-08-30 12:05:08 Test Item Value Reference Range Interpretation Comments POCT GLU (test code = 1207172340) 136 mg/dL 70-110 H Lab Interpretation (test code = Abnormal 23403-0) [facility] GLUCOSE (AUTOMATED)2022-08-30 11:08:07 Test Item Value Reference Range Interpretation Comments POCT GLU (test code = 1979908770) 115 mg/dL 70-110 H Lab Interpretation (test code = Abnormal 22902-7) [facility] GLUCOSE (AUTOMATED)2022-08-30 10:21:27 Test Item Value Reference Range Interpretation Comments POCT GLU (test code = 3179454486) 111 mg/dL 70-110 H Lab Interpretation (test code = Abnormal 27526-8) [facility] GLUCOSE (AUTOMATED)2022-08-30 09:12:24 Test Item Value Reference Range Interpretation Comments POCT GLU (test code = 0585060116) 121 mg/dL 70-110 H Lab Interpretation (test code = Abnormal 26515-0) [facility] GLUCOSE (AUTOMATED)2022-08-30 08:11:01 Test Item Value Reference Range Interpretation Comments POCT GLU (test code = 3212331863) 137 mg/dL 70-110 H Lab Interpretation (test code = Abnormal 61004-9) [facility] GLUCOSE (AUTOMATED)2022-08-30 07:47:30 Test Item Value Reference Range Interpretation Comments POCT GLU (test code = 2011532448) 134 mg/dL 70-110 H Lab Interpretation (test code = Abnormal 22331-4) [facility] GLUCOSE (AUTOMATED)2022-08-30 06:32:02 Test Item Value Reference Range Interpretation Comments POCT GLU (test code = 4227364352) 128 mg/dL 70-110 H Lab Interpretation (test code = Abnormal 91936-9) [facility] GLUCOSE (AUTOMATED)2022-08-30 05:05:59 Test Item Value Reference Range Interpretation Comments POCT GLU (test code = 7224116836) 157 mg/dL 70-110 H Lab Interpretation (test code = Abnormal 11627-8) [facility] GLUCOSE (AUTOMATED)2022-08-30 04:14:51 Test Item Value Reference Range Interpretation Comments POCT GLU (test code = 4402085141) 181 mg/dL 70-110 H Lab Interpretation (test code = Abnormal 90343-8) [facility] GLUCOSE (AUTOMATED)2022-08-30 03:07:48 Test Item Value Reference Range Interpretation Comments POCT GLU (test code = 4806565680) 150 mg/dL 70-110 H Lab Interpretation (test code = Abnormal 99791-3) [facility] GLUCOSE (AUTOMATED)2022-08-30 02:26:22 Test Item Value Reference Range Interpretation Comments POCT GLU (test code = 6560712239) 118 mg/dL 70-110 H Lab Interpretation (test code = Abnormal 34503-7) [facility] GLUCOSE (AUTOMATED)2022-08-30 01:05:37 Test Item Value Reference Range Interpretation Comments POCT GLU (test code = 9627115686) 150 mg/dL 70-110 H Lab Interpretation (test code = Abnormal 65986-9) [facility] GLUCOSE (AUTOMATED)2022-08-30 00:05:56 Test Item Value Reference Range Interpretation Comments POCT GLU (test code = 2190527740) 206 mg/dL 70-110 H Lab Interpretation (test code = Abnormal 00647-1) [facility] GLUCOSE (AUTOMATED)2022-08-29 23:02:06 Test Item Value Reference Range Interpretation Comments POCT GLU (test code = 5484625961) 172 mg/dL 70-110 H Lab Interpretation (test code = Abnormal 80114-1) [facility] GLUCOSE (AUTOMATED)2022-08-29 22:07:12 Test Item Value Reference Range Interpretation Comments POCT GLU (test code = 2152106883) 110 mg/dL 70-110 Lab Interpretation (test code = Normal 75853-3) [facility] GLUCOSE (AUTOMATED)2022-08-29 21:14:06 Test Item Value Reference Range Interpretation Comments POCT GLU (test code = 0071547643) 118 mg/dL 70-110 H Lab Interpretation (test code = Abnormal 79096-9) [facility] GLUCOSE (AUTOMATED)2022-08-29 20:09:27 Test Item Value Reference Range Interpretation Comments POCT GLU (test code = 6008824961) 104 mg/dL 70-110 Lab Interpretation (test code = Normal 14906-8) [facility] GLUCOSE (AUTOMATED)2022-08-29 19:11:06 Test Item Value Reference Range Interpretation Comments POCT GLU (test code = 3392770129) 101 mg/dL 70-110 Lab Interpretation (test code = Normal 26913-7) [facility] GLUCOSE (AUTOMATED)2022-08-29 18:15:25 Test Item Value Reference Range Interpretation Comments POCT GLU (test code = 9012942804) 125 mg/dL 70-110 H Lab Interpretation (test code = Abnormal 72997-5) [facility] GLUCOSE (AUTOMATED)2022-08-29 17:11:12 Test Item Value Reference Range Interpretation Comments POCT GLU (test code = 0110774813) 116 mg/dL 70-110 H Lab Interpretation (test code = Abnormal 46823-8) [facility] GLUCOSE (AUTOMATED)2022-08-29 16:16:36 Test Item Value Reference Range Interpretation Comments POCT GLU (test code = 9056495325) 139 mg/dL 70-110 H Lab Interpretation (test code = Abnormal 24515-8) [facility] GLUCOSE (AUTOMATED)2022-08-29 15:08:34 Test Item Value Reference Range Interpretation Comments POCT GLU (test code = 9572736294) 159 mg/dL 70-110 H Lab Interpretation (test code = Abnormal 33232-5) [facility] GLUCOSE (AUTOMATED)2022-08-29 14:18:05 Test Item Value Reference Range Interpretation Comments POCT GLU (test code = 6280952621) 147 mg/dL 70-110 H Lab Interpretation (test code = Abnormal 27204-5) [facility] GLUCOSE (AUTOMATED)2022-08-29 13:22:04 Test Item Value Reference Range Interpretation Comments POCT GLU (test code = 8211436895) 151 mg/dL 70-110 H Lab Interpretation (test code = Abnormal 33702-2) [facility] GLUCOSE (AUTOMATED)2022-08-29 12:11:27 Test Item Value Reference Range Interpretation Comments POCT GLU (test code = 4131212728) 163 mg/dL 70-110 H Lab Interpretation (test code = Abnormal 54400-0) [facility] GLUCOSE (AUTOMATED)2022-08-29 10:58:04 Test Item Value Reference Range Interpretation Comments POCT GLU (test code = 3367967329) 162 mg/dL 70-110 H Lab Interpretation (test code = Abnormal 11297-3) [facility] 10:03:25 Test Item Value Reference Range Interpretation Comments POCT GLU (test code = 6704766147) 184 mg/dL 70-110 H Lab Interpretation (test code = Abnormal 84350-0) [facility] GLUCOSE (AUTOMATED)2022-08-29 09:10:58 Test Item Value Reference Range Interpretation Comments POCT GLU (test code = 7100947213) 176 mg/dL 70-110 H Lab Interpretation (test code = Abnormal 31350-1) [facility] GLUCOSE (AUTOMATED)2022-08-29 08:04:18 Test Item Value Reference Range Interpretation Comments POCT GLU (test code = 3123325590) 158 mg/dL 70-110 H Lab Interpretation (test code = Abnormal 86464-3) [facility] GLUCOSE (AUTOMATED)2022-08-29 07:09:28 Test Item Value Reference Range Interpretation Comments POCT GLU (test code = 2245511185) 137 mg/dL 70-110 H Lab Interpretation (test code = Abnormal 89520-2) [facility] GLUCOSE (AUTOMATED)2022-08-29 06:07:41 Test Item Value Reference Range Interpretation Comments POCT GLU (test code = 9840961610) 136 mg/dL 70-110 H Lab Interpretation (test code = Abnormal 86746-0) [facility] GLUCOSE (AUTOMATED)2022-08-29 05:12:21 Test Item Value Reference Range Interpretation Comments POCT GLU (test code = 5470469564) 151 mg/dL 70-110 H Lab Interpretation (test code = Abnormal 93675-2) [facility] GLUCOSE (AUTOMATED)2022-08-29 04:11:30 Test Item Value Reference Range Interpretation Comments POCT GLU (test code = 4080089509) 166 mg/dL 70-110 H Lab Interpretation (test code = Abnormal 03404-5) [facility] GLUCOSE (AUTOMATED)2022-08-29 03:21:25 Test Item Value Reference Range Interpretation Comments POCT GLU (test code = 8412545585) 185 mg/dL 70-110 H Lab Interpretation (test code = Abnormal 39600-3) [facility] GLUCOSE (AUTOMATED)2022-08-29 02:13:24 Test Item Value Reference Range Interpretation Comments POCT GLU (test code = 2085515935) 139 mg/dL 70-110 H Lab Interpretation (test code = Abnormal 97118-9) [facility] GLUCOSE (AUTOMATED)2022-08-29 01:03:43 Test Item Value Reference Range Interpretation Comments POCT GLU (test code = 6946285898) 144 mg/dL 70-110 H Lab Interpretation (test code = Abnormal 60807-7) [facility] GLUCOSE (AUTOMATED)2022-08-29 00:27:52 Test Item Value Reference Range Interpretation Comments POCT GLU (test code = 9804379509) 193 mg/dL 70-110 H Lab Interpretation (test code = Abnormal 47550-1) [facility] GLUCOSE (AUTOMATED)2022-08-28 23:18:19 Test Item Value Reference Range Interpretation Comments POCT GLU (test code = 9023265149) 162 mg/dL 70-110 H Lab Interpretation (test code = Abnormal 36935-1) [facility] GLUCOSE (AUTOMATED)2022-08-28 22:25:29 Test Item Value Reference Range Interpretation Comments POCT GLU (test code = 6811249106) 163 mg/dL 70-110 H Lab Interpretation (test code = Abnormal 49194-4) [facility] GLUCOSE (AUTOMATED)2022-08-28 21:06:41 Test Item Value Reference Range Interpretation Comments POCT GLU (test code = 7469259413) 179 mg/dL 70-110 H Lab Interpretation (test code = Abnormal 48702-7) [facility] GLUCOSE (AUTOMATED)2022-08-28 20:08:24 Test Item Value Reference Range Interpretation Comments POCT GLU (test code = 4860788119) 159 mg/dL 70-110 H Lab Interpretation (test code = Abnormal 90675-1) [facility] GLUCOSE (AUTOMATED)2022-08-28 19:08:09 Test Item Value Reference Range Interpretation Comments POCT GLU (test code = 2272461132) 129 mg/dL 70-110 H Lab Interpretation (test code = Abnormal 91951-9) [facility] GLUCOSE (AUTOMATED)2022-08-28 18:16:18 Test Item Value Reference Range Interpretation Comments POCT GLU (test code = 8466847747) 106 mg/dL 70-110 Lab Interpretation (test code = Normal 15248-5) [facility] GLUCOSE (AUTOMATED)2022-08-28 17:06:55 Test Item Value Reference Range Interpretation Comments POCT GLU (test code = 7835341471) 136 mg/dL 70-110 H Lab Interpretation (test code = Abnormal 22815-1) [facility] GLUCOSE (AUTOMATED)2022-08-28 16:05:13 Test Item Value Reference Range Interpretation Comments POCT GLU (test code = 2693261499) 141 mg/dL 70-110 H Lab Interpretation (test code = Abnormal 76870-9) [facility] GLUCOSE (AUTOMATED)2022-08-28 15:04:57 Test Item Value Reference Range Interpretation Comments POCT GLU (test code = 4544251890) 168 mg/dL 70-110 H Lab Interpretation (test code = Abnormal 03582-1) [facility] GLUCOSE (AUTOMATED)2022-08-28 14:10:31 Test Item Value Reference Range Interpretation Comments POCT GLU (test code = 6298870655) 163 mg/dL 70-110 H Lab Interpretation (test code = Abnormal 28431-1) [facility] GLUCOSE (AUTOMATED)2022-08-28 13:07:27 Test Item Value Reference Range Interpretation Comments POCT GLU (test code = 2611021826) 133 mg/dL 70-110 H Lab Interpretation (test code = Abnormal 20021-8) [facility] GLUCOSE (AUTOMATED)2022-08-28 12:32:10 Test Item Value Reference Range Interpretation Comments POCT GLU (test code = 3649889798) 150 mg/dL 70-110 H Lab Interpretation (test code = Abnormal 05267-9) [facility] 12:14:56 Test Item Value Reference Range Interpretation Comments TRIG (test code = 9803917500) 1527 mg/dL 30-170 H Lab Interpretation (test code = Abnormal 42483-8) [facility] (NA, K, CL, CO2, GLUCOSE, BUN, CREATININE, CA)2022-08-28 12:02:28 Test Item Value Reference Range Interpretation Comments NA (test code = 137 mmol/L 135-145 3724997361) K (test code = 4.0 mmol/L 3.5-5.0 9002196032) CL (test code = 112 mmol/L 98-108 H 9220205587) CO2 TOTAL (test code = 19 mmol/L 23-31 L 4235149843) AGAP (test code = 6 2-16 5283097932) BUN (test code = 9 mg/dL 7-23 3466760092) GLUCOSE (test code = 157 mg/dL 70-110 H 4282311766) CREATININE (test code = 0.53 mg/dL 0.50-1.04 4702716056) CALCIUM (test code = 7.2 mg/dL 8.6-10.6 L 6660682012) eGFR (test code = 125.3 mL/min/1.73m2 7075728208) CALVIN (test code = CALVIN) Association of [...] tests). Lab Interpretation Abnormal (test code = 42691-5) [facility] GLUCOSE (AUTOMATED)2022-08-28 11:34:27 Test Item Value Reference Range Interpretation Comments POCT GLU (test code = 3919277162) 139 mg/dL 70-110 H Lab Interpretation (test code = Abnormal 00518-0) [facility] GLUCOSE (AUTOMATED)2022-08-28 10:08:58 Test Item Value Reference Range Interpretation Comments POCT GLU (test code = 4473223166) 159 mg/dL 70-110 H Lab Interpretation (test code = Abnormal 25430-3) [facility] GLUCOSE (AUTOMATED)2022-08-28 09:03:44 Test Item Value Reference Range Interpretation Comments POCT GLU (test code = 6683889774) 138 mg/dL 70-110 H Lab Interpretation (test code = Abnormal 01941-6) [facility] GLUCOSE (AUTOMATED)2022-08-28 08:09:23 Test Item Value Reference Range Interpretation Comments POCT GLU (test code = 1112561951) 134 mg/dL 70-110 H Lab Interpretation (test code = Abnormal 44385-8) [facility] GLUCOSE (AUTOMATED)2022-08-28 06:02:02 Test Item Value Reference Range Interpretation Comments POCT GLU (test code = 4144198988) 159 mg/dL 70-110 H Lab Interpretation (test code = Abnormal 99522-0) [facility] GLUCOSE (AUTOMATED)2022-08-28 05:07:18 Test Item Value Reference Range Interpretation Comments POCT GLU (test code = 5169570104) 132 mg/dL 70-110 H Lab Interpretation (test code = Abnormal 05663-0) [facility] GLUCOSE (AUTOMATED)2022-08-28 04:03:46 Test Item Value Reference Range Interpretation Comments POCT GLU (test code = 7054472234) 132 mg/dL 70-110 H Lab Interpretation (test code = Abnormal 41520-5) [facility] GLUCOSE (AUTOMATED)2022-08-28 03:06:02 Test Item Value Reference Range Interpretation Comments POCT GLU (test code = 8775548999) 161 mg/dL 70-110 H Lab Interpretation (test code = Abnormal 96271-9) [facility] GLUCOSE (AUTOMATED)2022-08-28 02:11:59 Test Item Value Reference Range Interpretation Comments POCT GLU (test code = 6531670448) 152 mg/dL 70-110 H Lab Interpretation (test code = Abnormal 28007-4) [facility] GLUCOSE (AUTOMATED)2022-08-28 01:13:55 Test Item Value Reference Range Interpretation Comments POCT GLU (test code = 6110196061) 154 mg/dL 70-110 H Lab Interpretation (test code = Abnormal 69392-7) [facility] GLUCOSE (AUTOMATED)2022-08-28 00:04:53 Test Item Value Reference Range Interpretation Comments POCT GLU (test code = 1301567446) 171 mg/dL 70-110 H Lab Interpretation (test code = Abnormal 41789-5) [facility] GLUCOSE (AUTOMATED)2022-08-27 23:36:39 Test Item Value Reference Range Interpretation Comments POCT GLU (test code = 3902933068) 192 mg/dL 70-110 H Lab Interpretation (test code = Abnormal 80338-1) [facility] GLUCOSE (AUTOMATED)2022-08-27 22:12:56 Test Item Value Reference Range Interpretation Comments POCT GLU (test code = 2740281914) 209 mg/dL 70-110 H Lab Interpretation (test code = Abnormal 06965-7) [facility] GLUCOSE (AUTOMATED)2022-08-27 21:04:44 Test Item Value Reference Range Interpretation Comments POCT GLU (test code = 9821332746) 173 mg/dL 70-110 H Lab Interpretation (test code = Abnormal 96122-9) [facility] GLUCOSE (AUTOMATED)2022-08-27 20:46:25 Test Item Value Reference Range Interpretation Comments POCT GLU (test code = 6859354510) 104 mg/dL 70-110 Lab Interpretation (test code = Normal 07205-8) [facility] GLUCOSE (AUTOMATED)2022-08-27 19:02:38 Test Item Value Reference Range Interpretation Comments POCT GLU (test code = 2791966141) 156 mg/dL 70-110 H Lab Interpretation (test code = Abnormal 03637-2) [facility] GLUCOSE (AUTOMATED)2022-08-27 18:04:27 Test Item Value Reference Range Interpretation Comments POCT GLU (test code = 9411374665) 146 mg/dL 70-110 H Lab Interpretation (test code = Abnormal 28249-7) [facility] 17:01:16 Test Item Value Reference Range Interpretation Comments POCT GLU (test code = 5161615670) 152 mg/dL 70-110 H Lab Interpretation (test code = Abnormal 51575-7) [facility] GLUCOSE (AUTOMATED)2022-08-27 16:14:54 Test Item Value Reference Range Interpretation Comments POCT GLU (test code = 1645855613) 173 mg/dL 70-110 H Lab Interpretation (test code = Abnormal 93673-9) [facility] GLUCOSE (AUTOMATED)2022-08-27 15:15:33 Test Item Value Reference Range Interpretation Comments POCT GLU (test code = 5150990030) 128 mg/dL 70-110 H Lab Interpretation (test code = Abnormal 89764-7) [facility] GLUCOSE (AUTOMATED)2022-08-27 14:21:55 Test Item Value Reference Range Interpretation Comments POCT GLU (test code = 4260827595) 128 mg/dL 70-110 H Lab Interpretation (test code = Abnormal 91766-7) [facility] GLUCOSE (AUTOMATED)2022-08-27 13:24:52 Test Item Value Reference Range Interpretation Comments POCT GLU (test code = 1323764671) 140 mg/dL 70-110 H Lab Interpretation (test code = Abnormal 59604-9) [facility] GLUCOSE (AUTOMATED)2022-08-27 12:09:47 Test Item Value Reference Range Interpretation Comments POCT GLU (test code = 4291649101) 167 mg/dL 70-110 H Lab Interpretation (test code = Abnormal 42894-0) [facility] GLUCOSE (AUTOMATED)2022-08-27 11:09:03 Test Item Value Reference Range Interpretation Comments POCT GLU (test code = 9598303322) 148 mg/dL 70-110 H Lab Interpretation (test code = Abnormal 35879-2) [facility] GLUCOSE (AUTOMATED)2022-08-27 10:16:49 Test Item Value Reference Range Interpretation Comments POCT GLU (test code = 3773537337) 129 mg/dL 70-110 H Lab Interpretation (test code = Abnormal 83640-3) [facility] GLUCOSE (AUTOMATED)2022-08-27 09:21:11 Test Item Value Reference Range Interpretation Comments POCT GLU (test code = 5739075963) 145 mg/dL 70-110 H Lab Interpretation (test code = Abnormal 53021-2) [facility] GLUCOSE (AUTOMATED)2022-08-27 07:01:10 Test Item Value Reference Range Interpretation Comments POCT GLU (test code = 4727520380) 126 mg/dL 70-110 H Lab Interpretation (test code = Abnormal 37715-4) [facility] GLUCOSE (AUTOMATED)2022-08-27 06:14:53 Test Item Value Reference Range Interpretation Comments POCT GLU (test code = 1768413717) 154 mg/dL 70-110 H Lab Interpretation (test code = Abnormal 32083-4) [facility]57 Test Item Value Reference Range Interpretation Comments LIPASE (test code = 3209442015) 197 U/L 0-220 Lab Interpretation (test code = Normal 83342-6) [facility] GLUCOSE (AUTOMATED)2022-08-27 05:13:21 Test Item Value Reference Range Interpretation Comments POCT GLU (test code = 5838130499) 163 mg/dL 70-110 H Lab Interpretation (test code = Abnormal 14711-8) [facility] LIPOPROTEIN, [id number] 04:16:58 Test Item Value Reference Range Interpretation Comments dLDL Chol (test code = 19760-0) 63 mg/dL <=130 Lab Interpretation (test code = Normal 47477-4) [facility] TexasOSMOLALITY, SERUM OR [id number] 04:12:04 Test Item Value Reference Range Interpretation Comments OSMOLALITY (test code = 319 See_Comment H [Au tomated message] 7602-2) The system [employer] generated this result transmitted ref erence range: 278 - 30 5 mOsm/kg. The reference range was not used to int erpret this result as normal/abnormal . Lab Interpretation (test Abnormal code = 30619-5) [facility] GLUCOSE (AUTOMATED)2022-08-27 03:17:19 Test Item Value Reference Range Interpretation Comments POCT GLU (test code = 7275209095) 244 mg/dL 70-110 H Lab Interpretation (test code = Abnormal 25222-7) [facility] Metabolic Panel (NA, K, CL, CO2, GLUCOSE, BUN, CREATININE, CA)2022-08-27 02:55:11 Test Item Value Reference Range Interpretation Comments NA (test code = 134 mmol/L 135-145 L 6927240185) K (test code = 4.3 mmol/L 3.5-5.0 0456234446) CL (test code = 103 mmol/L 98-108 6537634162) CO2 TOTAL (test code = 19 mmol/L 23-31 L 1126385682) AGAP (test code = 12 2-16 3617389129) BUN (test code = 25 mg/dL 7-23 H 2987000499) GLUCOSE (test code = 277 mg/dL 70-110 H 9782292845) CREATININE (test code = 0.77 mg/dL 0.50-1.04 7162150613) CALCIUM (test code = 8.2 mg/dL 8.6-10.6 L 0290813132) eGFR (test code = 81.4 mL/min/1.73m2 3260384984) CALVIN (test code = CALVIN) Association of [...] tests). Lab Interpretation Abnormal (test code = 31659-8) [facility] GLUCOSE (AUTOMATED)2022-08-27 02:03:06 Test Item Value Reference Range Interpretation Comments POCT GLU (test code = 2678663491) 322 mg/dL 70-110 H Lab Interpretation (test code = Abnormal 60655-1) [facility] GLUCOSE (AUTOMATED)2022-08-27 01:25:59 Test Item Value Reference Range Interpretation Comments POCT GLU (test code = 3600082900) 324 mg/dL 70-110 H Lab Interpretation (test code = Abnormal 90136-2) [facility] GLUCOSE (AUTOMATED)2022-08-27 00:32:23 Test Item Value Reference Range Interpretation Comments POCT GLU (test code = 6734844769) 372 mg/dL 70-110 H Lab Interpretation (test code = Abnormal 05610-7) [facility] GLUCOSE (AUTOMATED)2022-08-27 00:00:02 Test Item Value Reference Range Interpretation Comments POCT GLU (test code = 1141984710) 382 mg/dL 70-110 H Lab Interpretation (test code = Abnormal 82327-4) [facility] GLUCOSE (AUTOMATED)2022-08-26 23:10:50 Test Item Value Reference Range Interpretation Comments POCT GLU (test code = 0554307542) 409 mg/dL 70-110 H Lab Interpretation (test code = Abnormal 87602-0) [facility] (27968)(TOTAL CHOLESTEROL, TRIGLYCERIDES, HDL)2022-08-26 22:34:41 Test Item Value Reference Range Interpretation Comments CHOL (test code = 381 mg/dL 120-200 H 6887827801) HDL (test code = 25 mg/dL >=50 L 3012906773) HDLC RATIO (test code = 15.2 <=4.5 H 8563855514) TRIG (test code = 30-170 H 2454461483) LDL CHOL (test code = Unable to calculate 91311-8) LDL due to elev ated triglyceride le jossy greater than 40 0 mg/dL. VLDL (test code = Unable to calculate 1708151681) VLDL due to [place] vated triglyceride le jossy greater than 71 0 mg/dL. Lab Interpretation Abnormal (test code = 97128-9) [facility]2022-08-26 22:11:52 Test Item Value Reference Range Interpretation Comments POCT GLU (test code = 2678789499) 375 mg/dL 70-110 H Lab Interpretation (test code = Abnormal 38652-0) [facility] METABOLIC PANEL (81970)2022-08-26 22:06:45 Test Item Value Reference Range Interpretation Comments NA (test code = 131 mmol/L 135-145 L 2356876387) K (test code = 5.4 mmol/L 3.5-5.0 H 2229448044) CL (test code = 95 mmol/L 98-108 L 5810778999) CO2 TOTAL (test code = 9 mmol/L 23-31 L 3325520853) AGAP (test code = 27 2-16 H 2338911934) BUN (test code = 29 mg/dL 7-23 H 1825295339) GLUCOSE (test code = 444 mg/dL 70-110 H 0929869568) CREATININE (test code = 1.01 mg/dL 0.50-1.04 3344214556) TOTAL BILI (test code = 0.9 mg/dL 0.1-1.0 3695619910) CALCIUM (test code = 9.2 mg/dL 8.6-10.6 9713808865) T PROTEIN (test code = 9.4 g/dL 6.3-8.2 H 7627400804) ALBUMIN (test code = 4.8 g/dL 3.5-5.0 7130219442) ALK PHOS (test code = 79 U/L 34-122 7319932633) ALTv (test code = 43 U/L 5-35 H 1742-6) AST(SGOT) (test code = 42 U/L 13-40 H 3311692731) eGFR (test code = 59.5 mL/min/1.73m2 7367294138) CALVIN (test code = CALVIN) Association of [...] tests). Lab Interpretation Abnormal (test code = 91775-4) [facility]20[facility] 22:02:31 Test Item Value Reference Range Interpretation Comments MAGNESIUM (test code = 9041137243) 1.7 mg/dL 1.7-2.4 Lab Interpretation (test code = Normal 34435-6) [facility] [id number] 21:22:43 Test Item Value Reference Range Interpretation Comments WBC (test code = 9.75 See_Comment [Automated 1983-2) message] The sy stem which generated this result transmitted reference range : 4.30 - 11.10 10*3/?L. The reference range was not used to interpret this result as normal/abnormal . RBC (test code = 4.71 See_Comment [Automated 213-6) message] The sy stem which generated this [...] RDW-SD (test code = 43.3 fL 39.0-49.9 30300-4) RDW-CV (test code = 14.4 % 12.0-15.5 788-0) PLT (test code = 371 See_Comment H [Automated 777-3) message] The sy stem which generated this result transmitted reference range : 166 - 358 10*3/ ?L. The reference r doretha was not used to interpret this result as normal/abnormal . MPV (test code = 10.2 fL 9.5-12.9 65672-2) NRBC/100 WBC (test 0.0 See_Comment [Automat ed code = 1504407374) message] The system which generated this result transmitted reference range : 0.0 - 10.0 /100 WBCs. The refer ence range was not u sed to interpret th is result as normal/abnormal . NRBC x10^3 (test code See_Comment [Auto mated = 8891562835) message] The s ystem which generated this result transmitted reference range : 10*3/?L. The reference range was not used to interpret this result as normal/abnormal . GRAN MAT (NEUT) % 52.7 % (test code = 770-8) IMM GRAN % (test code 1.10 % = 7748808863) LYMPH % (test code = 36.6 % 736-9) MONO % (test code = 6.5 % 5905-5) EOS % (test code = 1.6 % 713-8) BASO % (test code = 1.5 % 706-2) GRAN MAT x10^3(ANC) 5.13 10*3/uL 1.88-7.09 (test code = 9440515275) IMM GRAN x10^3 (test 0.11 10*3/uL 0.00-0.06 H code = 9042271363) LYMPH x10^3 (test code 3.57 10*3/uL 1.32-3.29 H = 731-0) MONO x10^3 (test code 0.63 10*3/uL 0.33-0.92 = 742-7) EOS x10^3 (test code = 0.16 10*3/uL 0.03-0.39 711-2) BASO x10^3 (test code 0.15 10*3/uL 0.01-0.07 H = 704-7) Lab Interpretation Abnormal (test code = 44818-8) [facility]22-[facility]-26 20:35:54 Test Item Value Reference Range Interpretation Comments POCT GLU (test code = 9120398884) 400 mg/dL 70-110 H Lab Interpretation (test code = Abnormal 40990-8) [facility] Metabolic Panel (Na, K, Cl, CO2, Glucose, BUN, Creatinine, Ca)2022-06-22 03:47:00 Test Item Value Reference Range Interpretation Comments NA (test code = 136 mmol/L 135-145 2340386554) K (test code = 3.8 mmol/L 3.5-5.0 2279741604) CL (test code = 97 mmol/L 98-108 L 1129665169) CO2 TOTAL (test code = 24 mmol/L 23-31 7493494854) AGAP (test code = 2-16 0121011151) BUN (test code = 34 mg/dL 7-23 H 3367347384) GLUCOSE (test code = 270 mg/dL 70-110 H 6573300138) CREATININE (test code = 0.93 mg/dL 0.50-1.04 9408109733) CALCIUM (test code = 10.6 mg/dL 8.6-10.6 1208161627) eGFR (test code = mL/min/1.73m2 4927005073) CALVIN (test code = CALVIN) Association of [...] tests). Lab Interpretation Abnormal (test code = 48353-4) [facility] GLUCOSE (AUTOMATED)2022-06-22 03:46:00 Test Item Value Reference Range Interpretation Comments POCT GLU (test code = 0088956343) 256 mg/dL 70-110 H Lab Interpretation (test code = Abnormal 45931-5) [facility]cosylated Hemoglobin (A1C)2022-06-22 03:08:04 Test Item Value Reference Range Interpretation Comments HGB A1C (test code = 12.0 % 4.0-5.7 H 4548-4) CALVIN (test code = CALVIN) Reference RangesNormal: <5.7%Prediabetes: 5.7 - 6.4%Diabetes: > 6.5% Lab Interpretation (test Abnormal code = 13534-5) [facility] GLUCOSE (AUTOMATED)2022-06-22 02:44:02 Test Item Value Reference Range Interpretation Comments POCT GLU (test code = 6359614548) 265 mg/dL 70-110 H Lab Interpretation (test code = Abnormal 93086-5) [facility] GLUCOSE(AGE >30DAYS)2022-06-22 02:39:00 Test Item Value Reference Range Interpretation Comments POCT Glu (age>30days) (test code = 265 mg/dL 70-110 A 3342) Lab Interpretation (test code = Abnormal 81623-3) [facility] TexasMagnesium [id number] 02:25:21 Test Item Value Reference Range Interpretation Comments MAGNESIUM (test code = 1374103878) 1.5 mg/dL 1.7-2.4 L Lab Interpretation (test code = Abnormal 67978-6) [facility] TexasPhosphorus [id number] 02:25:01 Test Item Value Reference Range Interpretation Comments PHOSPHORUS (test code = 5582750576) 5.7 mg/dL 2.5-5.0 H Lab Interpretation (test code = Abnormal 99328-8) [facility] GLUCOSE (AUTOMATED)2022-06-22 01:44:15 Test Item Value Reference Range Interpretation Comments POCT GLU (test code = 8932123523) 298 mg/dL 70-110 H Lab Interpretation (test code = Abnormal 46438-3) [facility] [id number] 01:28:41 Test Item Value Reference Range Interpretation Comments WBC (test code = See_Comment [Automated 7690-2) message] The sy stem which generated this [...] (test code = 37.1 fL 39.0-49.9 L 26463-5) RDW-CV (test code = 12.5 % 12.0-15.5 788-0) PLT (test code = See_Comment [Automated 777-3) message] The sy stem which generated this result transmitted reference range : 166 - 358 10*3/ ?L. The reference r doretha was not used to interpret this result as normal/abnormal . MPV (test code = 9.9 fL 9.5-12.9 52707-4) NRBC/100 WBC (test See_Comment [Automat ed code = 8094799481) message] The system which generated this result transmitted reference range : 0.0 - 10.0 /100 WBCs. The refer ence range was not u sed to interpret th is result as normal/abnormal . NRBC x10^3 (test code See_Comment [Auto mated = 4615153391) message] The s ystem which generated this result transmitted reference range : 10*3/?L. The reference range was not used to interpret this result as normal/abnormal . GRAN MAT (NEUT) % 40.5 % (test code = 770-8) IMM GRAN % (test code 0.90 % = 7625759365) LYMPH % (test code = 48.0 % 736-9) MONO % (test code = 8.5 % 5905-5) EOS % (test code = 1.1 % 713-8) BASO % (test code = 1.0 % 706-2) GRAN MAT x10^3(ANC) 4.35 10*3/uL 1.88-7.09 (test code = 8555587757) IMM GRAN x10^3 (test 0.10 10*3/uL 0.00-0.06 H code = 6296664369) LYMPH x10^3 (test code 5.17 10*3/uL 1.32-3.29 H = 731-0) MONO x10^3 (test code 0.92 10*3/uL 0.33-0.92 = 742-7) EOS x10^3 (test code = 0.12 10*3/uL 0.03-0.39 711-2) BASO x10^3 (test code 0.11 10*3/uL 0.01-0.07 H = 704-7) Lab Interpretation Abnormal (test code = 24653-8) [facility]TR[facility] [id number] 00:34:27 Test Item Value Reference Interpretation Comments Range TROPONIN I (test 0.000 ng/mL See_Comment [Automated code = 5115710281) message] The system which generated this result [...] biotin. Lab Interpretation Normal (test code = 81753-6) [facility] TexasN-TERMINAL [id number] 00:31:09 Test Item Value Reference Range Interpretation Comments NT-proBNP (test code 21 pg/mL See_Comment [Autom ated = 4474232448) message] The system which generated this result transmitted reference range : <=125. The reference range was not used to interpret this result as normal/abnormal . CALVIN (test code = CALVIN) Biotin has been reported to cause a negative bias, interpret results relative to patient's use of biotin. Lab Interpretation Normal (test code = 35695-8) [facility] METABOLIC PANEL (NA, K, CL, CO2, GLUCOSE, BUN, CREATININE, CA)2022-06-22 00:22:03 Test Item Value Reference Range Interpretation Comments NA (test code = 133 mmol/L 135-145 L 5024480511) K (test code = 4.7 mmol/L 3.5-5.0 4000486805) CL (test code = 91 mmol/L 98-108 L 2606926552) CO2 TOTAL (test code = 24 mmol/L 23-31 7138794796) AGAP (test code = 2-16 H 3439430040) BUN (test code = 37 mg/dL 7-23 H 8724634437) GLUCOSE (test code = 385 mg/dL 70-110 H 7107938743) CREATININE (test code = 1.09 mg/dL 0.50-1.04 H 7699473136) CALCIUM (test code = 11.5 mg/dL 8.6-10.6 H 9390513229) eGFR (test code = mL/min/1.73m2 9010183721) CALVIN (test code = CALVIN) Association of [...] tests). Lab Interpretation Abnormal (test code = 71514-1) [facility] TexasCOMPREHENSIVE METABOLIC [id number] 00:00:00 Test Item Value Reference Range Interpretation Comments GLUCOSE (test code = 2217) 259 MG/DL BUN (test code = 2208) 17 MG/DL CREATININE (test code = 2214) 0.72 MG/DL eGFR (2020 CKD-EPI) (test 106 ML/MIN/1.73 code = 68081) CALC BUN/CREAT (test code = 24 RATIO [...] code = 2219) 38 U/L COMPREHENSIVE METABOLIC [id number] 00:00:00 Test Item Value Reference Range Interpretation Comments GLUCOSE (test code = 2217) 259 MG/DL BUN (test code = 2208) 17 MG/DL CREATININE (test code = 2214) 0.72 MG/DL eGFR (2020 CKD-EPI) (test 106 ML/MIN/1.73 code = 76935) CALC BUN/CREAT (test code = 24 RATIO [...] (test code = 2219) 38 U/L LIPID [id number] 00:00:00 Test Item Value Reference Range Interpretation Comments CHOLESTEROL (test code = 2210) 196 MG/DL TRIGLYCERIDES (test code = 2232) 500 MG/DL HDL CHOLESTEROL (test code = 31 MG/DL 2220) CALC LDL CHOL (test code = 2237) (NOTE) MG/DL RISK RATIO LDL/HDL (test code = (NOTE) RATIO 2238) LIPID [id number] 00:00:00 Test Item Value Reference Range Interpretation Comments CHOLESTEROL (test code = 2210) 196 MG/DL TRIGLYCERIDES (test code = 2232) 500 MG/DL HDL CHOLESTEROL (test code = 31 MG/DL 2220) CALC LDL CHOL (test code = 2237) (NOTE) MG/DL RISK RATIO LDL/HDL (test code = (NOTE) RATIO 2238) HEMOGLOBIN [id number] 00:00:00 Test Item Value Reference Range Interpretation Comments HEMOGLOBIN A1c (test code = 72227) 11.0 % HEMOGLOBIN [id number] 00:00:00 Test Item Value Reference Range Interpretation Comments HEMOGLOBIN A1c (test code = 58061) 11.0 % HEMOGLOBIN [id number] 00:00:00 Test Item Value Reference Range Interpretation Comments HEMOGLOBIN A1c (test code = 50682) 11.0 % COMPREHENSIVE METABOLIC [id number] 00:00:00 Test Item Value Reference Range Interpretation Comments GLUCOSE (test code = 2217) 259 MG/DL BUN (test code = 2208) 17 MG/DL CREATININE (test code = 2214) 0.72 MG/DL eGFR (2020 CKD-EPI) (test 106 ML/MIN/1.73 code = 71693) CALC BUN/CREAT (test code = 24 RATIO [...] code = 2219) 38 U/L COMPREHENSIVE METABOLIC [id number] 00:00:00 Test Item Value Reference Range Interpretation Comments GLUCOSE (test code = 2217) 259 MG/DL BUN (test code = 2208) 17 MG/DL CREATININE (test code = 2214) 0.72 MG/DL eGFR (2020 CKD-EPI) (test 106 ML/MIN/1.73 code = 33128) CALC BUN/CREAT (test code = 24 RATIO [...] (test code = 2219) 38 U/L LIPID [id number] 00:00:00 Test Item Value Reference Range Interpretation Comments CHOLESTEROL (test code = 2210) 196 MG/DL TRIGLYCERIDES (test code = 2232) 500 MG/DL HDL CHOLESTEROL (test code = 31 MG/DL 2219) CALC LDL CHOL (test code = 2237) (NOTE) MG/DL RISK RATIO LDL/HDL (test code = (NOTE) RATIO 2238) LIPID [id number] 00:00:00 Test Item Value Reference Range Interpretation Comments CHOLESTEROL (test code = 2210) 196 MG/DL TRIGLYCERIDES (test code = 2232) 500 MG/DL HDL CHOLESTEROL (test code = 31 MG/DL 2220) CALC LDL CHOL (test code = 2237) (NOTE) MG/DL RISK RATIO LDL/HDL (test code = (NOTE) RATIO 2238) HEMOGLOBIN [id number] 00:00:00 Test Item Value Reference Range Interpretation Comments HEMOGLOBIN A1c (test code = 13480) 11.0 % HEMOGLOBIN [id number] 00:00:00 Test Item Value Reference Range Interpretation Comments HEMOGLOBIN A1c (test code = 53970) 11.0 % HEMOGLOBIN [id number] 00:00:00 Test Item Value Reference Range Interpretation Comments HEMOGLOBIN A1c (test code = 26146) 11.0 % COMPREHENSIVE METABOLIC [id number] 00:00:00 Test Item Value Reference Range Interpretation Comments GLUCOSE (test code = 2217) 259 MG/DL BUN (test code = 2208) 17 MG/DL CREATININE (test code = 2214) 0.72 MG/DL eGFR (2020 CKD-EPI) (test 106 ML/MIN/1.73 code = 06253) CALC BUN/CREAT (test code = 24 RATIO [...] code = 2219) 38 U/L COMPREHENSIVE METABOLIC [id number] 00:00:00 Test Item Value Reference Range Interpretation Comments GLUCOSE (test code = 2217) 259 MG/DL BUN (test code = 2208) 17 MG/DL CREATININE (test code = 2214) 0.72 MG/DL eGFR (2020 CKD-EPI) (test 106 ML/MIN/1.73 code = 97991) CALC BUN/CREAT (test code = 24 RATIO [...] (test code = 2219) 38 U/L LIPID [id number] 00:00:00 Test Item Value Reference Range Interpretation Comments CHOLESTEROL (test code = 2210) 196 MG/DL TRIGLYCERIDES (test code = 2232) 500 MG/DL HDL CHOLESTEROL (test code = 31 MG/DL 2220) CALC LDL CHOL (test code = 2237) (NOTE) MG/DL RISK RATIO LDL/HDL (test code = (NOTE) RATIO 2238) LIPID [id number] 00:00:00 Test Item Value Reference Range Interpretation Comments CHOLESTEROL (test code = 2210) 196 MG/DL TRIGLYCERIDES (test code = 2232) 500 MG/DL HDL CHOLESTEROL (test code = 31 MG/DL 2220) CALC LDL CHOL (test code = 2237) (NOTE) MG/DL RISK RATIO LDL/HDL (test code = (NOTE) RATIO 2238) HEMOGLOBIN [id number] 00:00:00 Test Item Value Reference Range Interpretation Comments HEMOGLOBIN A1c (test code = 83911) 11.0 % HEMOGLOBIN [id number] 00:00:00 Test Item Value Reference Range Interpretation Comments HEMOGLOBIN A1c (test code = 88071) 11.0 % HEMOGLOBIN [id number] 00:00:00 Test Item Value Reference Range Interpretation Comments HEMOGLOBIN A1c (test code = 82193) 11.0 % COMPREHENSIVE METABOLIC [id number] 00:00:00 Test Item Value Reference Range Interpretation Comments GLUCOSE (test code = 2217) 259 MG/DL BUN (test code = 2208) 17 MG/DL CREATININE (test code = 2214) 0.72 MG/DL eGFR (2020 CKD-EPI) (test 106 ML/MIN/1.73 code = 20343) CALC BUN/CREAT (test code = 24 RATIO [...] code = 2219) 38 U/L COMPREHENSIVE METABOLIC [id number] 00:00:00 Test Item Value Reference Range Interpretation Comments GLUCOSE (test code = 2217) 259 MG/DL BUN (test code = 2208) 17 MG/DL CREATININE (test code = 2214) 0.72 MG/DL eGFR (2020 CKD-EPI) (test 106 ML/MIN/1.73 code = 39298) CALC BUN/CREAT (test code = 24 RATIO [...] (test code = 2219) 38 U/L LIPID [id number] 00:00:00 Test Item Value Reference Range Interpretation Comments CHOLESTEROL (test code = 2210) 196 MG/DL TRIGLYCERIDES (test code = 2232) 500 MG/DL HDL CHOLESTEROL (test code = 31 MG/DL 2220) CALC LDL CHOL (test code = 2237) (NOTE) MG/DL RISK RATIO LDL/HDL (test code = (NOTE) RATIO 2238) LIPID [id number] 00:00:00 Test Item Value Reference Range Interpretation Comments CHOLESTEROL (test code = 2210) 196 MG/DL TRIGLYCERIDES (test code = 2232) 500 MG/DL HDL CHOLESTEROL (test code = 31 MG/DL 2220) CALC LDL CHOL (test code = 2237) (NOTE) MG/DL RISK RATIO LDL/HDL (test code = (NOTE) RATIO 2238) HEMOGLOBIN [id number] 00:00:00 Test Item Value Reference Range Interpretation Comments HEMOGLOBIN A1c (test code = 89130) 11.0 % HEMOGLOBIN [id number] 00:00:00 Test Item Value Reference Range Interpretation Comments HEMOGLOBIN A1c (test code = 43201) 11.0 % HEMOGLOBIN [id number] 00:00:00 Test Item Value Reference Range Interpretation Comments HEMOGLOBIN A1c (test code = 63574) 11.0 % VAGINAL PATHOGENS DNA [id number] 15:33:03 Test Item Value Reference Range Interpretation Comments ANDIE SPECIES (test NEGATIVE NEGATIVE code = ) G. VAGINALIS (test NEGATIVE NEGATIVE code = 11780) T. VAGINALIS (test NEGATIVE NEGATIVE UNLESS O THERWISE code = 38723) INDICATED, ALL TESTING PERFORMED [facility] NICAL PATHOLOGY LABOR [facility] [address] [place] [address] 4 LABORATORY DIRE CTOR: NOAH TODD M.D. CLIA NUMBER [id number] [facility]. [id number] VAGINAL PATHOGENS DNA [id number] 00:00:00 Test Item Value Reference Range Interpretation Comments ANDIE SPECIES (test code = 74985) NEGATIVE G. VAGINALIS (test code = 12032) NEGATIVE T. VAGINALIS (test code = 27891) NEGATIVE VAGINAL PATHOGENS DNA [id number] 00:00:00 Test Item Value Reference Range Interpretation Comments ANDIE SPECIES (test code = 83983) NEGATIVE G. VAGINALIS (test code = 22828) NEGATIVE T. VAGINALIS (test code = 62932) NEGATIVE VAGINAL PATHOGENS DNA [id number] 00:00:00 Test Item Value Reference Range Interpretation Comments ANDIE SPECIES (test code = 85001) NEGATIVE G. VAGINALIS (test code = 46878) NEGATIVE T. VAGINALIS (test code = 93348) NEGATIVE VAGINAL PATHOGENS DNA [id number] 00:00:00 Test Item Value Reference Range Interpretation Comments ANDIE SPECIES (test code = 75753) NEGATIVE G. VAGINALIS (test code = 95855) NEGATIVE T. VAGINALIS (test code = 95078) NEGATIVE VAGINAL PATHOGENS DNA [id number] 00:00:00 Test Item Value Reference Range Interpretation Comments ANDIE SPECIES (test code = 60481) NEGATIVE G. VAGINALIS (test code = 65067) NEGATIVE T. VAGINALIS (test code = 43858) NEGATIVE VAGINAL PATHOGENS DNA [id number] 00:00:00 Test Item Value Reference Range Interpretation Comments NADIE SPECIES (test code = 07205) NEGATIVE G. VAGINALIS (test code = 04736) NEGATIVE T. VAGINALIS (test code = 94459) NEGATIVE VAGINAL PATHOGENS DNA [id number] 00:00:00 Test Item Value Reference Range Interpretation Comments ANDIE SPECIES (test code = 29073) NEGATIVE G. VAGINALIS (test code = 49684) NEGATIVE T. VAGINALIS (test code = 47170) NEGATIVE VAGINAL PATHOGENS DNA [id number] 00:00:00 Test Item Value Reference Range Interpretation Comments ANDIE SPECIES (test code = 37725) NEGATIVE G. VAGINALIS (test code = 74362) NEGATIVE T. VAGINALIS (test code = 90697) NEGATIVE VAGINAL PATHOGENS DNA [id number] 00:00:00 Test Item Value Reference Range Interpretation Comments ANDIE SPECIES (test code = 93962) NEGATIVE G. VAGINALIS (test code = 30279) NEGATIVE T. VAGINALIS (test code = 91953) NEGATIVE VAGINAL PATHOGENS DNA [id number] 00:00:00 Test Item Value Reference Range Interpretation Comments ANDIE SPECIES (test code = 29952) NEGATIVE G. VAGINALIS (test code = 47750) NEGATIVE T. VAGINALIS (test code = 63996) NEGATIVE CULTURE, [id number] 14:55:44SPECIMEN NUMBER: [id number] CULTURE, URINE SPECIMEN NUMBER: [id number] SPECIMEN COMMENT: URINE SOURCE:URINE REPORT STATUS: FINAL FINAL REPORT: 04/11/2022 <10,000 CFU/ML UROGENITAL NORMA PRESENT NO COM MON PATHOGENSCULTURE, [id number] 00:00:00 Test Item Value Reference Range Interpretation Comments CULTURE, URINE (test SPECIMEN NUMBER: code = 78904) [id number] CULTURE, [id number] 00:00:00 Test Item Value Reference Range Interpretation Comments CULTURE, URINE (test SPECIMEN NUMBER: code = 72459) [id number] CULTURE, [id number] 00:00:00 Test Item Value Reference Range Interpretation Comments CULTURE, URINE (test SPECIMEN NUMBER: code = 77752) [id number] CULTURE, [id number] 00:00:00 Test Item Value Reference Range Interpretation Comments CULTURE, URINE (test SPECIMEN NUMBER: code = 33426) [id number] CULTURE, [id number] 00:00:00 Test Item Value Reference Range Interpretation Comments CULTURE, URINE (test SPECIMEN NUMBER: code = 25458) [id number] CULTURE, [id number] 00:00:00 Test Item Value Reference Range Interpretation Comments CULTURE, URINE (test SPECIMEN NUMBER: code = 29678) [id number] CULTURE, [id number] 00:00:00 Test Item Value Reference Range Interpretation Comments CULTURE, URINE (test SPECIMEN NUMBER: code = 44257) [id number] CULTURE, [id number] 00:00:00 Test Item Value Reference Range Interpretation Comments CULTURE, URINE (test SPECIMEN NUMBER: code = 95052) [id number] CULTURE, [id number] 00:00:00 Test Item Value Reference Range Interpretation Comments CULTURE, URINE (test SPECIMEN NUMBER: code = 69631) [id number] CULTURE, [id number] 00:00:00 Test Item Value Reference Range Interpretation Comments CULTURE, URINE (test SPECIMEN NUMBER: code = 80109) [id number] CULTURE, [id number] 00:00:00 Test Item Value Reference Range Interpretation Comments CULTURE, URINE (test SPECIMEN NUMBER: code = 72437) [id number] CULTURE, [id number] 00:00:00 Test Item Value Reference Range Interpretation Comments CULTURE, URINE (test SPECIMEN NUMBER: code = 19261) [id number] CULTURE, [id number] 00:00:00 Test Item Value Reference Range Interpretation Comments CULTURE, URINE (test SPECIMEN NUMBER: code = 53175) [id number] CULTURE, [id number] 00:00:00 Test Item Value Reference Range Interpretation Comments CULTURE, URINE (test SPECIMEN NUMBER: code = 47680) [id number] CBC W/AUTO DIFF WITH [id number] 02:13:01 Test Item Value Reference Range Interpretation [...] message] code = 1065) WBC'S The system [employer] generated this result transmitted ref erence range: [...] 0.00-0.11 UNLESS O THERWISE (test code = 60841) INDICATE D, ALL TESTING PERFORM ED ATCLINICAL PATH [facility], I [place]. [address] [place] [address] [facility] DIRECTOR: NOAH DICKENS M.D. CLIA NUMBER [id number] CAP ACCREDITATION N O. [id number] CBC W/AUTO [id number] 00:00:00 Test Item Value Reference Range Interpretation [...] NUCLEATED RBCS (test code = 0.00 K/UL 00347) CBC W/AUTO [id number] 00:00:00 Test Item Value Reference Range Interpretation [...] NUCLEATED RBCS (test code = 0.00 K/UL 59747) CBC W/AUTO [id number] 00:00:00 Test Item Value Reference Range Interpretation [...] NUCLEATED RBCS (test code = 0.00 K/UL 39493) CBC W/AUTO [id number] 00:00:00 Test Item Value Reference Range Interpretation [...] NUCLEATED RBCS (test code = 0.00 K/UL 74793) CBC W/AUTO [id number] 00:00:00 Test Item Value Reference Range Interpretation [...] NUCLEATED RBCS (test code = 0.00 K/UL 20349) CBC W/AUTO [id number] 00:00:00 Test Item Value Reference Range Interpretation [...] NUCLEATED RBCS (test code = 0.00 K/UL 41419) CBC W/AUTO [id number] 00:00:00 Test Item Value Reference Range Interpretation [...] NUCLEATED RBCS (test code = 0.00 K/UL 93250) CBC W/AUTO [id number] 00:00:00 Test Item Value Reference Range Interpretation [...] NUCLEATED RBCS (test code = 0.00 K/UL 65260) CBC W/AUTO [id number] 00:00:00 Test Item Value Reference Range Interpretation [...] NUCLEATED RBCS (test code = 0.00 K/UL 13961) CBC W/AUTO [id number] 00:00:00 Test Item Value Reference Range Interpretation [...] NUCLEATED RBCS (test code = 0.00 K/UL 73235) CBC W/AUTO [id number] 00:00:00 Test Item Value Reference Range Interpretation [...] NUCLEATED RBCS (test code = 0.00 K/UL 41707) CBC W/AUTO [id number] 00:00:00 Test Item Value Reference Range Interpretation [...] NUCLEATED RBCS (test code = 0.00 K/UL 41288) CBC W/AUTO [id number] 00:00:00 Test Item Value Reference Range Interpretation [...] NUCLEATED RBCS (test code = 0.00 K/UL 88322) CBC W/AUTO [id number] 00:00:00 Test Item Value Reference Range Interpretation [...] NUCLEATED RBCS (test code = 0.00 K/UL 59643) CBC W/AUTO [id number] 00:00:00 Test Item Value Reference Range Interpretation [...] NUCLEATED RBCS (test code = 0.00 K/UL 38655) CBC W/AUTO [id number] 00:00:00 Test Item Value Reference Range Interpretation [...] NUCLEATED RBCS (test code = 0.00 K/UL 79552) CBC W/AUTO [id number] 00:00:00 Test Item Value Reference Range Interpretation [...] NUCLEATED RBCS (test code = 0.00 K/UL 60559) CBC W/AUTO [id number] 00:00:00 Test Item Value Reference Range Interpretation [...] NUCLEATED RBCS (test code = 0.00 K/UL 56284) CBC W/AUTO [id number] 00:00:00 Test Item Value Reference Range Interpretation [...] NUCLEATED RBCS (test code = 0.00 K/UL 31563) CBC W/AUTO [id number] 00:00:00 Test Item Value Reference Range Interpretation [...] NUCLEATED RBCS (test code = 0.00 K/UL 54130) CBC W/AUTO [id number] 00:00:00 Test Item Value Reference Range Interpretation [...] NUCLEATED RBCS (test code = 0.00 K/UL 11086) COMPREHENSIVE METABOLIC [id number] 04:26:32 Test Item Value Reference Range Interpretation Comments GLUCOSE (test code = 122 MG/DL 70-99 H 2216) BUN (test code = 11 MG/DL 6-20 2207) CREATININE (test 0.65 MG/DL 0.60-1.30 code = 2214) eGFR (2020 CKD-EPI) 111 >60 (test code = 00477) ML/MIN/1.73 CALC BUN/CREAT (test 17 RATIO 6-28 code = 2235) SODIUM (test code = 145 MEQ/L 094-999 3953) POTASSIUM (test code 4.2 MEQ/L 3.5-5.4 = [...] code = 38 U/L 5-40 2218) LIPID [id number] 04:26:32 Test Item Value Reference Range Interpretation [...] MOREINFORMATION , SEE CLIENT ANNOUNCE MENT AT [email or web address] RISK RATIO LDL/HDL 2.84 RATIO <3.22 (test code = 2238) HEMOGLOBIN [id number] 04:03:31 Test Item Value Reference Range Interpretation Comments HEMOGLOBIN A1c (test 10.9 % 4.2-5.6 H [employer]IC AN DIABETES code = 88902) ASSOCIATION [employer] FOR HGB A1C: PREDIABETES/INC REASED [...] INDICATED, ALL TESTING PER FORMED ATCLINICAL PATH [facility], [facility]. [address] [facility] [place] [address] LABORATORY DIRE CTOR: Carlos Enrique BERNARD. CHERELLEIA NUMBER [id number] CAP ACCREDITATION N O. [id number] COMPREHENSIVE METABOLIC [id number] 00:00:00 Test Item Value Reference Range Interpretation Comments GLUCOSE (test code = 2217) 122 MG/DL BUN (test code = 2208) 11 MG/DL CREATININE (test code = 2214) 0.65 MG/DL eGFR (2020 CKD-EPI) (test 111 ML/MIN/1.73 code = 75079) CALC BUN/CREAT (test code = 17 RATIO [...] code = 2219) 38 U/L COMPREHENSIVE METABOLIC [id number] 00:00:00 Test Item Value Reference Range Interpretation Comments GLUCOSE (test code = 2217) 122 MG/DL BUN (test code = 2208) 11 MG/DL CREATININE (test code = 2214) 0.65 MG/DL eGFR (2020 CKD-EPI) (test 111 ML/MIN/1.73 code = 87098) CALC BUN/CREAT (test code = 17 RATIO [...] (test code = 2219) 38 U/L LIPID [id number] 00:00:00 Test Item Value Reference Range Interpretation Comments CHOLESTEROL (test code = 2210) 169 MG/DL TRIGLYCERIDES (test code = 2232) 346 MG/DL HDL CHOLESTEROL (test code = 2220) 32 MG/DL CALC LDL CHOL (test code = 2237) 91 MG/DL RISK RATIO LDL/HDL (test code = 2.84 RATIO 2238) LIPID [id number] 00:00:00 Test Item Value Reference Range Interpretation Comments CHOLESTEROL (test code = 2210) 169 MG/DL TRIGLYCERIDES (test code = 2232) 346 MG/DL HDL CHOLESTEROL (test code = 2220) 32 MG/DL CALC LDL CHOL (test code = 2237) 91 MG/DL RISK RATIO LDL/HDL (test code = 2.84 RATIO 2238) HEMOGLOBIN [id number] 00:00:00 Test Item Value Reference Range Interpretation Comments HEMOGLOBIN A1c (test code = 99476) 10.9 % HEMOGLOBIN [id number] 00:00:00 Test Item Value Reference Range Interpretation Comments HEMOGLOBIN A1c (test code = 85785) 10.9 % HEMOGLOBIN [id number] 00:00:00 Test Item Value Reference Range Interpretation Comments HEMOGLOBIN A1c (test code = 85848) 10.9 % COMPREHENSIVE METABOLIC [id number] 00:00:00 Test Item Value Reference Range Interpretation Comments GLUCOSE (test code = 2217) 122 MG/DL BUN (test code = 2208) 11 MG/DL CREATININE (test code = 2214) 0.65 MG/DL eGFR (2020 CKD-EPI) (test 111 ML/MIN/1.73 code = 10139) CALC BUN/CREAT (test code = 17 RATIO [...] code = 2219) 38 U/L COMPREHENSIVE METABOLIC [id number] 00:00:00 Test Item Value Reference Range Interpretation Comments GLUCOSE (test code = 2217) 122 MG/DL BUN (test code = 2208) 11 MG/DL CREATININE (test code = 2214) 0.65 MG/DL eGFR (2020 CKD-EPI) (test 111 ML/MIN/1.73 code = 20845) CALC BUN/CREAT (test code = 17 RATIO [...] (test code = 2219) 38 U/L LIPID [id number] 00:00:00 Test Item Value Reference Range Interpretation Comments CHOLESTEROL (test code = 2210) 169 MG/DL TRIGLYCERIDES (test code = 2232) 346 MG/DL HDL CHOLESTEROL (test code = 2220) 32 MG/DL CALC LDL CHOL (test code = 2237) 91 MG/DL RISK RATIO LDL/HDL (test code = 2.84 RATIO 2238) LIPID [id number] 00:00:00 Test Item Value Reference Range Interpretation Comments CHOLESTEROL (test code = 2210) 169 MG/DL TRIGLYCERIDES (test code = 2232) 346 MG/DL HDL CHOLESTEROL (test code = 2220) 32 MG/DL CALC LDL CHOL (test code = 2237) 91 MG/DL RISK RATIO LDL/HDL (test code = 2.84 RATIO 2238) HEMOGLOBIN [id number] 00:00:00 Test Item Value Reference Range Interpretation Comments HEMOGLOBIN A1c (test code = 78605) 10.9 % HEMOGLOBIN [id number] 00:00:00 Test Item Value Reference Range Interpretation Comments HEMOGLOBIN A1c (test code = 09617) 10.9 % HEMOGLOBIN [id number] 00:00:00 Test Item Value Reference Range Interpretation Comments HEMOGLOBIN A1c (test code = 58884) 10.9 % COMPREHENSIVE METABOLIC [id number] 00:00:00 Test Item Value Reference Range Interpretation Comments GLUCOSE (test code = 2217) 122 MG/DL BUN (test code = 2208) 11 MG/DL CREATININE (test code = 2214) 0.65 MG/DL eGFR (2020 CKD-EPI) (test 111 ML/MIN/1.73 code = 39871) CALC BUN/CREAT (test code = 17 RATIO [...] code = 2219) 38 U/L COMPREHENSIVE METABOLIC [id number] 00:00:00 Test Item Value Reference Range Interpretation Comments GLUCOSE (test code = 2217) 122 MG/DL BUN (test code = 2208) 11 MG/DL CREATININE (test code = 2214) 0.65 MG/DL eGFR (2020 CKD-EPI) (test 111 ML/MIN/1.73 code = 28232) CALC BUN/CREAT (test code = 17 RATIO [...] (test code = 2219) 38 U/L LIPID [id number] 00:00:00 Test Item Value Reference Range Interpretation Comments CHOLESTEROL (test code = 2210) 169 MG/DL TRIGLYCERIDES (test code = 2232) 346 MG/DL HDL CHOLESTEROL (test code = 2220) 32 MG/DL CALC LDL CHOL (test code = 2237) 91 MG/DL RISK RATIO LDL/HDL (test code = 2.84 RATIO 2238) LIPID [id number] 00:00:00 Test Item Value Reference Range Interpretation Comments CHOLESTEROL (test code = 2210) 169 MG/DL TRIGLYCERIDES (test code = 2232) 346 MG/DL HDL CHOLESTEROL (test code = 2220) 32 MG/DL CALC LDL CHOL (test code = 2237) 91 MG/DL RISK RATIO LDL/HDL (test code = 2.84 RATIO 2238) HEMOGLOBIN [id number] 00:00:00 Test Item Value Reference Range Interpretation Comments HEMOGLOBIN A1c (test code = 73111) 10.9 % HEMOGLOBIN [id number] 00:00:00 Test Item Value Reference Range Interpretation Comments HEMOGLOBIN A1c (test code = 09197) 10.9 % HEMOGLOBIN [id number] 00:00:00 Test Item Value Reference Range Interpretation Comments HEMOGLOBIN A1c (test code = 72811) 10.9 % COMPREHENSIVE METABOLIC [id number] 00:00:00 Test Item Value Reference Range Interpretation Comments GLUCOSE (test code = 2217) 122 MG/DL BUN (test code = 2208) 11 MG/DL CREATININE (test code = 2214) 0.65 MG/DL eGFR (2020 CKD-EPI) (test 111 ML/MIN/1.73 code = 10823) CALC BUN/CREAT (test code = 17 RATIO [...] code = 2219) 38 U/L COMPREHENSIVE METABOLIC [id number] 00:00:00 Test Item Value Reference Range Interpretation Comments GLUCOSE (test code = 2217) 122 MG/DL BUN (test code = 2208) 11 MG/DL CREATININE (test code = 2214) 0.65 MG/DL eGFR (2020 CKD-EPI) (test 111 ML/MIN/1.73 code = 37398) CALC BUN/CREAT (test code = 17 RATIO [...] (test code = 2219) 38 U/L LIPID [id number] 00:00:00 Test Item Value Reference Range Interpretation Comments CHOLESTEROL (test code = 2210) 169 MG/DL TRIGLYCERIDES (test code = 2232) 346 MG/DL HDL CHOLESTEROL (test code = 2220) 32 MG/DL CALC LDL CHOL (test code = 2237) 91 MG/DL RISK RATIO LDL/HDL (test code = 2.84 RATIO 2238) LIPID [id number] 00:00:00 Test Item Value Reference Range Interpretation Comments CHOLESTEROL (test code = 2210) 169 MG/DL TRIGLYCERIDES (test code = 2232) 346 MG/DL HDL CHOLESTEROL (test code = 2220) 32 MG/DL CALC LDL CHOL (test code = 2237) 91 MG/DL RISK RATIO LDL/HDL (test code = 2.84 RATIO 2238) HEMOGLOBIN [id number] 00:00:00 Test Item Value Reference Range Interpretation Comments HEMOGLOBIN A1c (test code = 99232) 10.9 % HEMOGLOBIN [id number] 00:00:00 Test Item Value Reference Range Interpretation Comments HEMOGLOBIN A1c (test code = 07071) 10.9 % HEMOGLOBIN [id number] 00:00:00 Test Item Value Reference Range Interpretation Comments HEMOGLOBIN A1c (test code = 90318) 10.9 % COMPREHENSIVE METABOLIC [id number] 00:00:00 Test Item Value Reference Range Interpretation Comments GLUCOSE (test code = 2217) 122 MG/DL BUN (test code = 2208) 11 MG/DL CREATININE (test code = 2214) 0.65 MG/DL eGFR (2020 CKD-EPI) (test 111 ML/MIN/1.73 code = 65547) CALC BUN/CREAT (test code = 17 RATIO [...] code = 2219) 38 U/L COMPREHENSIVE METABOLIC [id number] 00:00:00 Test Item Value Reference Range Interpretation Comments GLUCOSE (test code = 2217) 122 MG/DL BUN (test code = 2208) 11 MG/DL CREATININE (test code = 2214) 0.65 MG/DL eGFR (2020 CKD-EPI) (test 111 ML/MIN/1.73 code = 94262) CALC BUN/CREAT (test code = 17 RATIO [...] (test code = 2219) 38 U/L LIPID [id number] 00:00:00 Test Item Value Reference Range Interpretation Comments CHOLESTEROL (test code = 2210) 169 MG/DL TRIGLYCERIDES (test code = 2232) 346 MG/DL HDL CHOLESTEROL (test code = 2220) 32 MG/DL CALC LDL CHOL (test code = 2237) 91 MG/DL RISK RATIO LDL/HDL (test code = 2.84 RATIO 2238) LIPID [id number] 00:00:00 Test Item Value Reference Range Interpretation Comments CHOLESTEROL (test code = 2210) 169 MG/DL TRIGLYCERIDES (test code = 2232) 346 MG/DL HDL CHOLESTEROL (test code = 2220) 32 MG/DL CALC LDL CHOL (test code = 2237) 91 MG/DL RISK RATIO LDL/HDL (test code = 2.84 RATIO 2238) HEMOGLOBIN [id number] 00:00:00 Test Item Value Reference Range Interpretation Comments HEMOGLOBIN A1c (test code = 09352) 10.9 % HEMOGLOBIN [id number] 00:00:00 Test Item Value Reference Range Interpretation Comments HEMOGLOBIN A1c (test code = 37417) 10.9 % HEMOGLOBIN [id number] 00:00:00 Test Item Value Reference Range Interpretation Comments HEMOGLOBIN A1c (test code = 19076) 10.9 % COMPREHENSIVE METABOLIC [id number] 00:00:00 Test Item Value Reference Range Interpretation Comments GLUCOSE (test code = 2217) 122 MG/DL BUN (test code = 2208) 11 MG/DL CREATININE (test code = 2214) 0.65 MG/DL eGFR (2020 CKD-EPI) (test 111 ML/MIN/1.73 code = 32093) CALC BUN/CREAT (test code = 17 RATIO [...] code = 2219) 38 U/L COMPREHENSIVE METABOLIC [id number] 00:00:00 Test Item Value Reference Range Interpretation Comments GLUCOSE (test code = 2217) 122 MG/DL BUN (test code = 2208) 11 MG/DL CREATININE (test code = 2214) 0.65 MG/DL eGFR (2020 CKD-EPI) (test 111 ML/MIN/1.73 code = 62628) CALC BUN/CREAT (test code = 17 RATIO [...] (test code = 2219) 38 U/L LIPID [id number] 00:00:00 Test Item Value Reference Range Interpretation Comments CHOLESTEROL (test code = 2210) 169 MG/DL TRIGLYCERIDES (test code = 2232) 346 MG/DL HDL CHOLESTEROL (test code = 2220) 32 MG/DL CALC LDL CHOL (test code = 2237) 91 MG/DL RISK RATIO LDL/HDL (test code = 2.84 RATIO 2238) LIPID [id number] 00:00:00 Test Item Value Reference Range Interpretation Comments CHOLESTEROL (test code = 2210) 169 MG/DL TRIGLYCERIDES (test code = 2232) 346 MG/DL HDL CHOLESTEROL (test code = 2220) 32 MG/DL CALC LDL CHOL (test code = 2237) 91 MG/DL RISK RATIO LDL/HDL (test code = 2.84 RATIO 2238) HEMOGLOBIN [id number] 00:00:00 Test Item Value Reference Range Interpretation Comments HEMOGLOBIN A1c (test code = 93072) 10.9 % HEMOGLOBIN [id number] 00:00:00 Test Item Value Reference Range Interpretation Comments HEMOGLOBIN A1c (test code = 18493) 10.9 % HEMOGLOBIN [id number] 00:00:00 Test Item Value Reference Range Interpretation Comments HEMOGLOBIN A1c (test code = 81934) 10.9 % COMPREHENSIVE METABOLIC [id number] 00:00:00 Test Item Value Reference Range Interpretation Comments GLUCOSE (test code = 2217) 122 MG/DL BUN (test code = 2208) 11 MG/DL CREATININE (test code = 2214) 0.65 MG/DL eGFR (2020 CKD-EPI) (test 111 ML/MIN/1.73 code = 99769) CALC BUN/CREAT (test code = 17 RATIO [...] code = 2219) 38 U/L COMPREHENSIVE METABOLIC [id number] 00:00:00 Test Item Value Reference Range Interpretation Comments GLUCOSE (test code = 2217) 122 MG/DL BUN (test code = 2208) 11 MG/DL CREATININE (test code = 2214) 0.65 MG/DL eGFR (2020 CKD-EPI) (test 111 ML/MIN/1.73 code = 46525) CALC BUN/CREAT (test code = 17 RATIO [...] (test code = 2219) 38 U/L LIPID [id number] 00:00:00 Test Item Value Reference Range Interpretation Comments CHOLESTEROL (test code = 2210) 169 MG/DL TRIGLYCERIDES (test code = 2232) 346 MG/DL HDL CHOLESTEROL (test code = 2220) 32 MG/DL CALC LDL CHOL (test code = 2237) 91 MG/DL RISK RATIO LDL/HDL (test code = 2.84 RATIO 2238) LIPID [id number] 00:00:00 Test Item Value Reference Range Interpretation Comments CHOLESTEROL (test code = 2210) 169 MG/DL TRIGLYCERIDES (test code = 2232) 346 MG/DL HDL CHOLESTEROL (test code = 2220) 32 MG/DL CALC LDL CHOL (test code = 2237) 91 MG/DL RISK RATIO LDL/HDL (test code = 2.84 RATIO 2238) HEMOGLOBIN [id number] 00:00:00 Test Item Value Reference Range Interpretation Comments HEMOGLOBIN A1c (test code = 86116) 10.9 % HEMOGLOBIN [id number] 00:00:00 Test Item Value Reference Range Interpretation Comments HEMOGLOBIN A1c (test code = 59185) 10.9 % HEMOGLOBIN [id number] 00:00:00 Test Item Value Reference Range Interpretation Comments HEMOGLOBIN A1c (test code = 61875) 10.9 % COMPREHENSIVE METABOLIC [id number] 00:00:00 Test Item Value Reference Range Interpretation Comments GLUCOSE (test code = 2217) 122 MG/DL BUN (test code = 2208) 11 MG/DL CREATININE (test code = 2214) 0.65 MG/DL eGFR (2020 CKD-EPI) (test 111 ML/MIN/1.73 code = 02691) CALC BUN/CREAT (test code = 17 RATIO [...] code = 2219) 38 U/L COMPREHENSIVE METABOLIC [id number] 00:00:00 Test Item Value Reference Range Interpretation Comments GLUCOSE (test code = 2217) 122 MG/DL BUN (test code = 2208) 11 MG/DL CREATININE (test code = 2214) 0.65 MG/DL eGFR (2020 CKD-EPI) (test 111 ML/MIN/1.73 code = 41184) CALC BUN/CREAT (test code = 17 RATIO [...] (test code = 2219) 38 U/L LIPID [id number] 00:00:00 Test Item Value Reference Range Interpretation Comments CHOLESTEROL (test code = 2210) 169 MG/DL TRIGLYCERIDES (test code = 2232) 346 MG/DL HDL CHOLESTEROL (test code = 2220) 32 MG/DL CALC LDL CHOL (test code = 2237) 91 MG/DL RISK RATIO LDL/HDL (test code = 2.84 RATIO 2238) LIPID [id number] 00:00:00 Test Item Value Reference Range Interpretation Comments CHOLESTEROL (test code = 2210) 169 MG/DL TRIGLYCERIDES (test code = 2232) 346 MG/DL HDL CHOLESTEROL (test code = 2220) 32 MG/DL CALC LDL CHOL (test code = 2237) 91 MG/DL RISK RATIO LDL/HDL (test code = 2.84 RATIO 2238) HEMOGLOBIN [id number] 00:00:00 Test Item Value Reference Range Interpretation Comments HEMOGLOBIN A1c (test code = 28452) 10.9 % HEMOGLOBIN [id number] 00:00:00 Test Item Value Reference Range Interpretation Comments HEMOGLOBIN A1c (test code = 34558) 10.9 % HEMOGLOBIN [id number] 00:00:00 Test Item Value Reference Range Interpretation Comments HEMOGLOBIN A1c (test code = 23359) 10.9 % COMPREHENSIVE METABOLIC [id number] 00:00:00 Test Item Value Reference Range Interpretation Comments GLUCOSE (test code = 2217) 122 MG/DL BUN (test code = 2208) 11 MG/DL CREATININE (test code = 2214) 0.65 MG/DL eGFR (2020 CKD-EPI) (test 111 ML/MIN/1.73 code = 02962) CALC BUN/CREAT (test code = 17 RATIO [...] code = 2219) 38 U/L COMPREHENSIVE METABOLIC [id number] 00:00:00 Test Item Value Reference Range Interpretation Comments GLUCOSE (test code = 2217) 122 MG/DL BUN (test code = 2208) 11 MG/DL CREATININE (test code = 2214) 0.65 MG/DL eGFR (2020 CKD-EPI) (test 111 ML/MIN/1.73 code = 60897) CALC BUN/CREAT (test code = 17 RATIO [...] (test code = 2219) 38 U/L LIPID [id number] 00:00:00 Test Item Value Reference Range Interpretation Comments CHOLESTEROL (test code = 2210) 169 MG/DL TRIGLYCERIDES (test code = 2232) 346 MG/DL HDL CHOLESTEROL (test code = 2220) 32 MG/DL CALC LDL CHOL (test code = 2237) 91 MG/DL RISK RATIO LDL/HDL (test code = 2.84 RATIO 2238) LIPID [id number] 00:00:00 Test Item Value Reference Range Interpretation Comments CHOLESTEROL (test code = 2210) 169 MG/DL TRIGLYCERIDES (test code = 2232) 346 MG/DL HDL CHOLESTEROL (test code = 2220) 32 MG/DL CALC LDL CHOL (test code = 2237) 91 MG/DL RISK RATIO LDL/HDL (test code = 2.84 RATIO 2238) HEMOGLOBIN [id number] 00:00:00 Test Item Value Reference Range Interpretation Comments HEMOGLOBIN A1c (test code = 95046) 10.9 % HEMOGLOBIN [id number] 00:00:00 Test Item Value Reference Range Interpretation Comments HEMOGLOBIN A1c (test code = 55635) 10.9 % HEMOGLOBIN [id number] 00:00:00 Test Item Value Reference Range Interpretation Comments HEMOGLOBIN A1c (test code = 80536) 10.9 % VITAMIN D, 25 [id number] 04:13:44 Test Item Value Reference Range Interpretation [...] PERFORM ED [facility], [facility]. [address] [place] [id number] LABORATORY DIRE CTOR: Carlos Enrique BERNARD. CLIA NUMBER [id number] CAP ACCREDITATION N O. [id number] HIV 1/2 4TH GEN, RFLX [id number] 03:26:41 Test Item Value Reference Range Interpretation Comments HIV 1/2 4TH GEN, RFLX CONF (test NON-REACTIVE NON-REACTIVE code = 3514) ALBUMIN, URINE, [id number] 02:46:02 Test Item Value Reference Range Interpretation Comments ALBUMIN, URINE, RANDOM (test code 10.2 MG/DL NOT ESTAB = 43809) MICROALBUMIN, [id number] 00:00:00 Test Item Value Reference Range Interpretation Comments ALBUMIN, URINE, RANDOM (test code 10.2 MG/DL = 29198) MICROALBUMIN, [id number] 00:00:00 Test Item Value Reference Range Interpretation Comments ALBUMIN, URINE, RANDOM (test code 10.2 MG/DL = 18691) HIV AB/AG COMBO RFLX [id number] 00:00:00 Test Item Value Reference Range Interpretation Comments HIV 1/2 4TH GEN, RFLX CONF (test NON-REACTIVE code = 3514) HIV AB/AG COMBO RFLX [id number] 00:00:00 Test Item Value Reference Range Interpretation Comments HIV 1/2 4TH GEN, RFLX CONF (test NON-REACTIVE code = 3514) VITAMIN D, 25 [id number] 00:00:00 Test Item Value Reference Range Interpretation Comments VITAMIN D, 25 OH (test code = 4958) 18 NG/ML VITAMIN D, 25 [id number] 00:00:00 Test Item Value Reference Range Interpretation Comments VITAMIN D, 25 OH (test code = 4958) 18 NG/ML MICROALBUMIN, [id number] 00:00:00 Test Item Value Reference Range Interpretation Comments ALBUMIN, URINE, RANDOM (test code 10.2 MG/DL = 25565) MICROALBUMIN, [id number] 00:00:00 Test Item Value Reference Range Interpretation Comments ALBUMIN, URINE, RANDOM (test code 10.2 MG/DL = 90720) HIV AB/AG COMBO RFLX [id number] 00:00:00 Test Item Value Reference Range Interpretation Comments HIV 1/2 4TH GEN, RFLX CONF (test NON-REACTIVE code = 3514) HIV AB/AG COMBO RFLX [id number] 00:00:00 Test Item Value Reference Range Interpretation Comments HIV 1/2 4TH GEN, RFLX CONF (test NON-REACTIVE code = 3514) VITAMIN D, 25 [id number] 00:00:00 Test Item Value Reference Range Interpretation Comments VITAMIN D, 25 OH (test code = 4958) 18 NG/ML VITAMIN D, 25 [id number] 00:00:00 Test Item Value Reference Range Interpretation Comments VITAMIN D, 25 OH (test code = 4958) 18 NG/ML MICROALBUMIN, [id number] 00:00:00 Test Item Value Reference Range Interpretation Comments ALBUMIN, URINE, RANDOM (test code 10.2 MG/DL = 25003) MICROALBUMIN, [id number] 00:00:00 Test Item Value Reference Range Interpretation Comments ALBUMIN, URINE, RANDOM (test code 10.2 MG/DL = 32522) HIV AB/AG COMBO RFLX [id number] 00:00:00 Test Item Value Reference Range Interpretation Comments HIV 1/2 4TH GEN, RFLX CONF (test NON-REACTIVE code = 3514) HIV AB/AG COMBO RFLX [id number] 00:00:00 Test Item Value Reference Range Interpretation Comments HIV 1/2 4TH GEN, RFLX CONF (test NON-REACTIVE code = 3514) VITAMIN D, 25 [id number] 00:00:00 Test Item Value Reference Range Interpretation Comments VITAMIN D, 25 OH (test code = 4958) 18 NG/ML VITAMIN D, 25 [id number] 00:00:00 Test Item Value Reference Range Interpretation Comments VITAMIN D, 25 OH (test code = 4958) 18 NG/ML MICROALBUMIN, [id number] 00:00:00 Test Item Value Reference Range Interpretation Comments ALBUMIN, URINE, RANDOM (test code 10.2 MG/DL = 74570) MICROALBUMIN, [id number] 00:00:00 Test Item Value Reference Range Interpretation Comments ALBUMIN, URINE, RANDOM (test code 10.2 MG/DL = 91284) HIV AB/AG COMBO RFLX [id number] 00:00:00 Test Item Value Reference Range Interpretation Comments HIV 1/2 4TH GEN, RFLX CONF (test NON-REACTIVE code = 3514) HIV AB/AG COMBO RFLX [id number] 00:00:00 Test Item Value Reference Range Interpretation Comments HIV 1/2 4TH GEN, RFLX CONF (test NON-REACTIVE code = 3514) VITAMIN D, 25 [id number] 00:00:00 Test Item Value Reference Range Interpretation Comments VITAMIN D, 25 OH (test code = 4958) 18 NG/ML VITAMIN D, 25 [id number] 00:00:00 Test Item Value Reference Range Interpretation Comments VITAMIN D, 25 OH (test code = 4958) 18 NG/ML MICROALBUMIN, [id number] 00:00:00 Test Item Value Reference Range Interpretation Comments ALBUMIN, URINE, RANDOM (test code 10.2 MG/DL = 11315) MICROALBUMIN, [id number] 00:00:00 Test Item Value Reference Range Interpretation Comments ALBUMIN, URINE, RANDOM (test code 10.2 MG/DL = 41436) HIV AB/AG COMBO RFLX [id number] 00:00:00 Test Item Value Reference Range Interpretation Comments HIV 1/2 4TH GEN, RFLX CONF (test NON-REACTIVE code = 3514) HIV AB/AG COMBO RFLX [id number] 00:00:00 Test Item Value Reference Range Interpretation Comments HIV 1/2 4TH GEN, RFLX CONF (test NON-REACTIVE code = 3514) VITAMIN D, 25 [id number] 00:00:00 Test Item Value Reference Range Interpretation Comments VITAMIN D, 25 OH (test code = 4958) 18 NG/ML VITAMIN D, 25 [id number] 00:00:00 Test Item Value Reference Range Interpretation Comments VITAMIN D, 25 OH (test code = 4958) 18 NG/ML MICROALBUMIN, [id number] 00:00:00 Test Item Value Reference Range Interpretation Comments ALBUMIN, URINE, RANDOM (test code 10.2 MG/DL = 83784) MICROALBUMIN, [id number] 00:00:00 Test Item Value Reference Range Interpretation Comments ALBUMIN, URINE, RANDOM (test code 10.2 MG/DL = 31964) HIV AB/AG COMBO RFLX [id number] 00:00:00 Test Item Value Reference Range Interpretation Comments HIV 1/2 4TH GEN, RFLX CONF (test NON-REACTIVE code = 3514) HIV AB/AG COMBO RFLX [id number] 00:00:00 Test Item Value Reference Range Interpretation Comments HIV 1/2 4TH GEN, RFLX CONF (test NON-REACTIVE code = 3514) VITAMIN D, 25 [id number] 00:00:00 Test Item Value Reference Range Interpretation Comments VITAMIN D, 25 OH (test code = 4958) 18 NG/ML VITAMIN D, 25 [id number] 00:00:00 Test Item Value Reference Range Interpretation Comments VITAMIN D, 25 OH (test code = 4958) 18 NG/ML MICROALBUMIN, [id number] 00:00:00 Test Item Value Reference Range Interpretation Comments ALBUMIN, URINE, RANDOM (test code 10.2 MG/DL = 07009) MICROALBUMIN, [id number] 00:00:00 Test Item Value Reference Range Interpretation Comments ALBUMIN, URINE, RANDOM (test code 10.2 MG/DL = 36016) HIV AB/AG COMBO RFLX [id number] 00:00:00 Test Item Value Reference Range Interpretation Comments HIV 1/2 4TH GEN, RFLX CONF (test NON-REACTIVE code = 3514) HIV AB/AG COMBO RFLX [id number] 00:00:00 Test Item Value Reference Range Interpretation Comments HIV 1/2 4TH GEN, RFLX CONF (test NON-REACTIVE code = 3514) VITAMIN D, 25 [id number] 00:00:00 Test Item Value Reference Range Interpretation Comments VITAMIN D, 25 OH (test code = 4958) 18 NG/ML VITAMIN D, 25 [id number] 00:00:00 Test Item Value Reference Range Interpretation Comments VITAMIN D, 25 OH (test code = 4958) 18 NG/ML MICROALBUMIN, [id number] 00:00:00 Test Item Value Reference Range Interpretation Comments ALBUMIN, URINE, RANDOM (test code 10.2 MG/DL = 52803) HIV AB/AG COMBO RFLX [id number] 00:00:00 Test Item Value Reference Range Interpretation Comments HIV 1/2 4TH GEN, RFLX CONF (test NON-REACTIVE code = 3514) MICROALBUMIN, [id number] 00:00:00 Test Item Value Reference Range Interpretation Comments ALBUMIN, URINE, RANDOM (test code 10.2 MG/DL = 48206) MICROALBUMIN, [id number] 00:00:00 Test Item Value Reference Range Interpretation Comments ALBUMIN, URINE, RANDOM (test code 10.2 MG/DL = 76576) HIV AB/AG COMBO RFLX [id number] 00:00:00 Test Item Value Reference Range Interpretation Comments HIV 1/2 4TH GEN, RFLX CONF (test NON-REACTIVE code = 3514) HIV AB/AG COMBO RFLX [id number] 00:00:00 Test Item Value Reference Range Interpretation Comments HIV 1/2 4TH GEN, RFLX CONF (test NON-REACTIVE code = 3514) VITAMIN D, 25 [id number] 00:00:00 Test Item Value Reference Range Interpretation Comments VITAMIN D, 25 OH (test code = 4958) 18 NG/ML VITAMIN D, 25 [id number] 00:00:00 Test Item Value Reference Range Interpretation Comments VITAMIN D, 25 OH (test code = 4958) 18 NG/ML VITAMIN D, 25 [id number] 00:00:00 Test Item Value Reference Range Interpretation Comments VITAMIN D, 25 OH (test code = 4958) 18 NG/ML MICROALBUMIN, [id number] 00:00:00 Test Item Value Reference Range Interpretation Comments ALBUMIN, URINE, RANDOM (test code 10.2 MG/DL = 16720) MICROALBUMIN, [id number] 00:00:00 Test Item Value Reference Range Interpretation Comments ALBUMIN, URINE, RANDOM (test code 10.2 MG/DL = 59865) HIV AB/AG COMBO RFLX [id number] 00:00:00 Test Item Value Reference Range Interpretation Comments HIV 1/2 4TH GEN, RFLX CONF (test NON-REACTIVE code = 3514) HIV AB/AG COMBO RFLX [id number] 00:00:00 Test Item Value Reference Range Interpretation Comments HIV 1/2 4TH GEN, RFLX CONF (test NON-REACTIVE code = 3514) VITAMIN D, 25 [id number] 00:00:00 Test Item Value Reference Range Interpretation Comments VITAMIN D, 25 OH (test code = 4958) 18 NG/ML VITAMIN D, 25 [id number] 00:00:00 Test Item Value Reference Range Interpretation Comments VITAMIN D, 25 OH (test code = 4958) 18 NG/ML MICROALBUMIN, [id number] 00:00:00 Test Item Value Reference Range Interpretation Comments ALBUMIN, URINE, RANDOM (test code 10.2 MG/DL = 27490) MICROALBUMIN, [id number] 00:00:00 Test Item Value Reference Range Interpretation Comments ALBUMIN, URINE, RANDOM (test code 10.2 MG/DL = 54243) HIV AB/AG COMBO RFLX [id number] 00:00:00 Test Item Value Reference Range Interpretation Comments HIV 1/2 4TH GEN, RFLX CONF (test NON-REACTIVE code = 3514) HIV AB/AG COMBO RFLX [id number] 00:00:00 Test Item Value Reference Range Interpretation Comments HIV 1/2 4TH GEN, RFLX CONF (test NON-REACTIVE code = 3514) VITAMIN D, 25 [id number] 00:00:00 Test Item Value Reference Range Interpretation Comments VITAMIN D, 25 OH (test code = 4958) 18 NG/ML VITAMIN D, 25 [id number] 00:00:00 Test Item Value Reference Range Interpretation Comments VITAMIN D, 25 OH (test code = 4958) 18 NG/ML LIPID [id number] 02:15:07 Test Item Value Reference Range Interpretation [...] MOREINFORMATION , SEE CLIENT ANNOUNCE MENT AT [email or web address] CalcLDL-C RISK RATIO LDL/HDL (NOTE) RATIO <3.22 UNABLE T O CALCULATE (test code = 2238) COMPREHENSIVE METABOLIC [id number] 02:15:07 Test Item Value Reference Range Interpretation Comments GLUCOSE (test code = 349 MG/DL 70-99 H 2216) BUN (test code = 17 MG/DL 6-20 2207) CREATININE (test 0.80 MG/DL 0.60-1.30 code = 2214) eGFR (2020 CKD-EPI) 94 ML/MIN/1.73 >60 (test code = 52508) CALC BUN/CREAT (test 21 RATIO 6-28 code = 2235) SODIUM (test code = 137 MEQ/L 758-465 2946) POTASSIUM (test code 4.2 MEQ/L 3.5-5.4 = [...] code = 39 U/L 5-40 2218) LIPID [id number] 00:00:00 Test Item Value Reference Range Interpretation Comments CHOLESTEROL (test code = 2210) 206 MG/DL TRIGLYCERIDES (test code = 2232) 1120 MG/DL HDL CHOLESTEROL (test code = 24 MG/DL 2220) CALC LDL CHOL (test code = 2237) (NOTE) MG/DL RISK RATIO LDL/HDL (test code = (NOTE) RATIO 2238) LIPID [id number] 00:00:00 Test Item Value Reference Range Interpretation Comments CHOLESTEROL (test code = 2210) 206 MG/DL TRIGLYCERIDES (test code = 2232) 1120 MG/DL HDL CHOLESTEROL (test code = 24 MG/DL 2220) CALC LDL CHOL (test code = 2237) (NOTE) MG/DL RISK RATIO LDL/HDL (test code = (NOTE) RATIO 2238) COMPREHENSIVE METABOLIC [id number] 00:00:00 Test Item Value Reference Range Interpretation Comments GLUCOSE (test code = 2217) 349 MG/DL BUN (test code = 2208) 17 MG/DL CREATININE (test code = 2214) 0.80 MG/DL eGFR (2020 CKD-EPI) (test code 94 ML/MIN/1.73 = 92009) CALC BUN/CREAT (test code = 21 RATIO [...] code = 2219) 39 U/L COMPREHENSIVE METABOLIC [id number] 00:00:00 Test Item Value Reference Range Interpretation Comments GLUCOSE (test code = 2217) 349 MG/DL BUN (test code = 2208) 17 MG/DL CREATININE (test code = 2214) 0.80 MG/DL eGFR (2020 CKD-EPI) (test code 94 ML/MIN/1.73 = 16488) CALC BUN/CREAT (test code = 21 RATIO [...] (test code = 2219) 39 U/L LIPID [id number] 00:00:00 Test Item Value Reference Range Interpretation Comments CHOLESTEROL (test code = 2210) 206 MG/DL TRIGLYCERIDES (test code = 2232) 1120 MG/DL HDL CHOLESTEROL (test code = 24 MG/DL 2220) CALC LDL CHOL (test code = 2237) (NOTE) MG/DL RISK RATIO LDL/HDL (test code = (NOTE) RATIO 2238) LIPID [id number] 00:00:00 Test Item Value Reference Range Interpretation Comments CHOLESTEROL (test code = 2210) 206 MG/DL TRIGLYCERIDES (test code = 2232) 1120 MG/DL HDL CHOLESTEROL (test code = 24 MG/DL 0) CALC LDL CHOL (test code = 2237) (NOTE) MG/DL RISK RATIO LDL/HDL (test code = (NOTE) RATIO 2238) COMPREHENSIVE METABOLIC [id number] 00:00:00 Test Item Value Reference Range Interpretation Comments GLUCOSE (test code = 2217) 349 MG/DL BUN (test code = 2208) 17 MG/DL CREATININE (test code = 2214) 0.80 MG/DL eGFR (2020 CKD-EPI) (test code 94 ML/MIN/1.73 = 11876) CALC BUN/CREAT (test code = 21 RATIO [...] code = 2219) 39 U/L COMPREHENSIVE METABOLIC [id number] 00:00:00 Test Item Value Reference Range Interpretation Comments GLUCOSE (test code = 2217) 349 MG/DL BUN (test code = 2208) 17 MG/DL CREATININE (test code = 2214) 0.80 MG/DL eGFR (2020 CKD-EPI) (test code 94 ML/MIN/1.73 = 22234) CALC BUN/CREAT (test code = 21 RATIO [...] (test code = 2219) 39 U/L LIPID [id number] 00:00:00 Test Item Value Reference Range Interpretation Comments CHOLESTEROL (test code = 2210) 206 MG/DL TRIGLYCERIDES (test code = 2232) 1120 MG/DL HDL CHOLESTEROL (test code = 24 MG/DL 2220) CALC LDL CHOL (test code = 2237) (NOTE) MG/DL RISK RATIO LDL/HDL (test code = (NOTE) RATIO 2238) LIPID [id number] 00:00:00 Test Item Value Reference Range Interpretation Comments CHOLESTEROL (test code = 2210) 206 MG/DL TRIGLYCERIDES (test code = 2232) 1120 MG/DL HDL CHOLESTEROL (test code = 24 MG/DL 2220) CALC LDL CHOL (test code = 2237) (NOTE) MG/DL RISK RATIO LDL/HDL (test code = (NOTE) RATIO 2238) COMPREHENSIVE METABOLIC [id number] 00:00:00 Test Item Value Reference Range Interpretation Comments GLUCOSE (test code = 2217) 349 MG/DL BUN (test code = 2208) 17 MG/DL CREATININE (test code = 2214) 0.80 MG/DL eGFR (2020 CKD-EPI) (test code 94 ML/MIN/1.73 = 90550) CALC BUN/CREAT (test code = 21 RATIO [...] code = 2219) 39 U/L COMPREHENSIVE METABOLIC [id number] 00:00:00 Test Item Value Reference Range Interpretation Comments GLUCOSE (test code = 2217) 349 MG/DL BUN (test code = 2208) 17 MG/DL CREATININE (test code = 2214) 0.80 MG/DL eGFR (2020 CKD-EPI) (test code 94 ML/MIN/1.73 = 27419) CALC BUN/CREAT (test code = 21 RATIO [...] (test code = 2219) 39 U/L LIPID [id number] 00:00:00 Test Item Value Reference Range Interpretation Comments CHOLESTEROL (test code = 2210) 206 MG/DL TRIGLYCERIDES (test code = 2232) 1120 MG/DL HDL CHOLESTEROL (test code = 24 MG/DL 2220) CALC LDL CHOL (test code = 2237) (NOTE) MG/DL RISK RATIO LDL/HDL (test code = (NOTE) RATIO 2238) LIPID [id number] 00:00:00 Test Item Value Reference Range Interpretation Comments CHOLESTEROL (test code = 2210) 206 MG/DL TRIGLYCERIDES (test code = 2232) 1120 MG/DL HDL CHOLESTEROL (test code = 24 MG/DL 0) CALC LDL CHOL (test code = 2237) (NOTE) MG/DL RISK RATIO LDL/HDL (test code = (NOTE) RATIO 2238) COMPREHENSIVE METABOLIC [id number] 00:00:00 Test Item Value Reference Range Interpretation Comments GLUCOSE (test code = 2217) 349 MG/DL BUN (test code = 2208) 17 MG/DL CREATININE (test code = 2214) 0.80 MG/DL eGFR (2020 CKD-EPI) (test code 94 ML/MIN/1.73 = 07024) CALC BUN/CREAT (test code = 21 RATIO [...] code = 2219) 39 U/L COMPREHENSIVE METABOLIC [id number] 00:00:00 Test Item Value Reference Range Interpretation Comments GLUCOSE (test code = 2217) 349 MG/DL BUN (test code = 2208) 17 MG/DL CREATININE (test code = 2214) 0.80 MG/DL eGFR (2020 CKD-EPI) (test code 94 ML/MIN/1.73 = 91522) CALC BUN/CREAT (test code = 21 RATIO [...] (test code = 2219) 39 U/L LIPID [id number] 00:00:00 Test Item Value Reference Range Interpretation Comments CHOLESTEROL (test code = 2210) 206 MG/DL TRIGLYCERIDES (test code = 2232) 1120 MG/DL HDL CHOLESTEROL (test code = 24 MG/DL 2220) CALC LDL CHOL (test code = 2237) (NOTE) MG/DL RISK RATIO LDL/HDL (test code = (NOTE) RATIO 2238) LIPID [id number] 00:00:00 Test Item Value Reference Range Interpretation Comments CHOLESTEROL (test code = 2210) 206 MG/DL TRIGLYCERIDES (test code = 2232) 1120 MG/DL HDL CHOLESTEROL (test code = 24 MG/DL 2220) CALC LDL CHOL (test code = 2237) (NOTE) MG/DL RISK RATIO LDL/HDL (test code = (NOTE) RATIO 2238) COMPREHENSIVE METABOLIC [id number] 00:00:00 Test Item Value Reference Range Interpretation Comments GLUCOSE (test code = 2217) 349 MG/DL BUN (test code = 2208) 17 MG/DL CREATININE (test code = 2214) 0.80 MG/DL eGFR (2020 CKD-EPI) (test code 94 ML/MIN/1.73 = 98504) CALC BUN/CREAT (test code = 21 RATIO [...] code = 2219) 39 U/L COMPREHENSIVE METABOLIC [id number] 00:00:00 Test Item Value Reference Range Interpretation Comments GLUCOSE (test code = 2217) 349 MG/DL BUN (test code = 2208) 17 MG/DL CREATININE (test code = 2214) 0.80 MG/DL eGFR (2020 CKD-EPI) (test code 94 ML/MIN/1.73 = 84220) CALC BUN/CREAT (test code = 21 RATIO [...] (test code = 2219) 39 U/L LIPID [id number] 00:00:00 Test Item Value Reference Range Interpretation Comments CHOLESTEROL (test code = 2210) 206 MG/DL TRIGLYCERIDES (test code = 2232) 1120 MG/DL HDL CHOLESTEROL (test code = 24 MG/DL 2220) CALC LDL CHOL (test code = 2237) (NOTE) MG/DL RISK RATIO LDL/HDL (test code = (NOTE) RATIO 2238) LIPID [id number] 00:00:00 Test Item Value Reference Range Interpretation Comments CHOLESTEROL (test code = 2210) 206 MG/DL TRIGLYCERIDES (test code = 2232) 1120 MG/DL HDL CHOLESTEROL (test code = 24 MG/DL 2220) CALC LDL CHOL (test code = 2237) (NOTE) MG/DL RISK RATIO LDL/HDL (test code = (NOTE) RATIO 2238) COMPREHENSIVE METABOLIC [id number] 00:00:00 Test Item Value Reference Range Interpretation Comments GLUCOSE (test code = 2217) 349 MG/DL BUN (test code = 2208) 17 MG/DL CREATININE (test code = 2214) 0.80 MG/DL eGFR (2020 CKD-EPI) (test code 94 ML/MIN/1.73 = 39599) CALC BUN/CREAT (test code = 21 RATIO [...] code = 2219) 39 U/L COMPREHENSIVE METABOLIC [id number] 00:00:00 Test Item Value Reference Range Interpretation Comments GLUCOSE (test code = 2217) 349 MG/DL BUN (test code = 2208) 17 MG/DL CREATININE (test code = 2214) 0.80 MG/DL eGFR (2020 CKD-EPI) (test code 94 ML/MIN/1.73 = 32944) CALC BUN/CREAT (test code = 21 RATIO [...] (test code = 2219) 39 U/L LIPID [id number] 00:00:00 Test Item Value Reference Range Interpretation Comments CHOLESTEROL (test code = 2210) 206 MG/DL TRIGLYCERIDES (test code = 2232) 1120 MG/DL HDL CHOLESTEROL (test code = 24 MG/DL 2220) CALC LDL CHOL (test code = 2237) (NOTE) MG/DL RISK RATIO LDL/HDL (test code = (NOTE) RATIO 2238) LIPID [id number] 00:00:00 Test Item Value Reference Range Interpretation Comments CHOLESTEROL (test code = 2210) 206 MG/DL TRIGLYCERIDES (test code = 2232) 1120 MG/DL HDL CHOLESTEROL (test code = 24 MG/DL 2220) CALC LDL CHOL (test code = 2237) (NOTE) MG/DL RISK RATIO LDL/HDL (test code = (NOTE) RATIO 2238) COMPREHENSIVE METABOLIC [id number] 00:00:00 Test Item Value Reference Range Interpretation Comments GLUCOSE (test code = 2217) 349 MG/DL BUN (test code = 2208) 17 MG/DL CREATININE (test code = 2214) 0.80 MG/DL eGFR (2020 CKD-EPI) (test code 94 ML/MIN/1.73 = 55447) CALC BUN/CREAT (test code = 21 RATIO [...] code = 2219) 39 U/L COMPREHENSIVE METABOLIC [id number] 00:00:00 Test Item Value Reference Range Interpretation Comments GLUCOSE (test code = 2217) 349 MG/DL BUN (test code = 2208) 17 MG/DL CREATININE (test code = 2214) 0.80 MG/DL eGFR (2020 CKD-EPI) (test code 94 ML/MIN/1.73 = 00719) CALC BUN/CREAT (test code = 21 RATIO [...] (test code = 2219) 39 U/L LIPID [id number] 00:00:00 Test Item Value Reference Range Interpretation Comments CHOLESTEROL (test code = 2210) 206 MG/DL TRIGLYCERIDES (test code = 2232) 1120 MG/DL HDL CHOLESTEROL (test code = 24 MG/DL 0) CALC LDL CHOL (test code = 2237) (NOTE) MG/DL RISK RATIO LDL/HDL (test code = (NOTE) RATIO 2238) COMPREHENSIVE METABOLIC [id number] 00:00:00 Test Item Value Reference Range Interpretation Comments GLUCOSE (test code = 2217) 349 MG/DL BUN (test code = 2208) 17 MG/DL CREATININE (test code = 2214) 0.80 MG/DL eGFR (2020 CKD-EPI) (test code 94 ML/MIN/1.73 = 35203) CALC BUN/CREAT (test code = 21 RATIO 2235) SODIUM (test code = 2231) 137 MEQ/L POTASSIUM (test code = 2228) 4.2 MEQ/L CHLORIDE (test code = 2215) 99 MEQ/L CARBON DIOXIDE (test code = 16 MEQ/L 2206) CALCIUM (test code = 220) 10.0 MG/DL [...] (test code = 2219) 39 U/L LIPID [id number] 00:00:00 Test Item Value Reference Range Interpretation Comments CHOLESTEROL (test code = 2210) 206 MG/DL TRIGLYCERIDES (test code = 2232) 1120 MG/DL HDL CHOLESTEROL (test code = 24 MG/DL 2220) CALC LDL CHOL (test code = 2237) (NOTE) MG/DL RISK RATIO LDL/HDL (test code = (NOTE) RATIO 2238) LIPID [id number] 00:00:00 Test Item Value Reference Range Interpretation Comments CHOLESTEROL (test code = 2210) 206 MG/DL TRIGLYCERIDES (test code = 2232) 1120 MG/DL HDL CHOLESTEROL (test code = 24 MG/DL 2220) CALC LDL CHOL (test code = 2237) (NOTE) MG/DL RISK RATIO LDL/HDL (test code = (NOTE) RATIO 2238) COMPREHENSIVE METABOLIC [id number] 00:00:00 Test Item Value Reference Range Interpretation Comments GLUCOSE (test code = 2217) 349 MG/DL BUN (test code = 2208) 17 MG/DL CREATININE (test code = 2214) 0.80 MG/DL eGFR (2020 CKD-EPI) (test code 94 ML/MIN/1.73 = 12360) CALC BUN/CREAT (test code = 21 RATIO [...] code = 2219) 39 U/L COMPREHENSIVE METABOLIC [id number] 00:00:00 Test Item Value Reference Range Interpretation Comments GLUCOSE (test code = 2217) 349 MG/DL BUN (test code = 2208) 17 MG/DL CREATININE (test code = 2214) 0.80 MG/DL eGFR (2020 CKD-EPI) (test code 94 ML/MIN/1.73 = 72839) CALC BUN/CREAT (test code = 21 RATIO [...] (test code = 2219) 39 U/L LIPID [id number] 00:00:00 Test Item Value Reference Range Interpretation Comments CHOLESTEROL (test code = 2210) 206 MG/DL TRIGLYCERIDES (test code = 2232) 1120 MG/DL HDL CHOLESTEROL (test code = 24 MG/DL 2220) CALC LDL CHOL (test code = 2237) (NOTE) MG/DL RISK RATIO LDL/HDL (test code = (NOTE) RATIO 2238) LIPID [id number] 00:00:00 Test Item Value Reference Range Interpretation Comments CHOLESTEROL (test code = 2210) 206 MG/DL TRIGLYCERIDES (test code = 2232) 1120 MG/DL HDL CHOLESTEROL (test code = 24 MG/DL 2220) CALC LDL CHOL (test code = 2237) (NOTE) MG/DL RISK RATIO LDL/HDL (test code = (NOTE) RATIO 2238) COMPREHENSIVE METABOLIC [id number] 00:00:00 Test Item Value Reference Range Interpretation Comments GLUCOSE (test code = 2217) 349 MG/DL BUN (test code = 2208) 17 MG/DL CREATININE (test code = 2214) 0.80 MG/DL eGFR (2020 CKD-EPI) (test code 94 ML/MIN/1.73 = 36262) CALC BUN/CREAT (test code = 21 RATIO [...] code = 2219) 39 U/L COMPREHENSIVE METABOLIC [id number] 00:00:00 Test Item Value Reference Range Interpretation Comments GLUCOSE (test code = 2217) 349 MG/DL BUN (test code = 2208) 17 MG/DL CREATININE (test code = 2214) 0.80 MG/DL eGFR (2020 CKD-EPI) (test code 94 ML/MIN/1.73 = 95419) CALC BUN/CREAT (test code = 21 RATIO [...] (test code = 2219) 39 U/L LIPID [id number] 00:00:00 Test Item Value Reference Range Interpretation Comments CHOLESTEROL (test code = 2210) 206 MG/DL TRIGLYCERIDES (test code = 2232) 1120 MG/DL HDL CHOLESTEROL (test code = 24 MG/DL 2220) CALC LDL CHOL (test code = 2237) (NOTE) MG/DL RISK RATIO LDL/HDL (test code = (NOTE) RATIO 2238) LIPID [id number] 00:00:00 Test Item Value Reference Range Interpretation Comments CHOLESTEROL (test code = 2210) 206 MG/DL TRIGLYCERIDES (test code = 2232) 1120 MG/DL HDL CHOLESTEROL (test code = 24 MG/DL 2220) CALC LDL CHOL (test code = 2237) (NOTE) MG/DL RISK RATIO LDL/HDL (test code = (NOTE) RATIO 2238) COMPREHENSIVE METABOLIC [id number] 00:00:00 Test Item Value Reference Range Interpretation Comments GLUCOSE (test code = 2217) 349 MG/DL BUN (test code = 2208) 17 MG/DL CREATININE (test code = 2214) 0.80 MG/DL eGFR (2020 CKD-EPI) (test code 94 ML/MIN/1.73 = 49578) CALC BUN/CREAT (test code = 21 RATIO [...] code = 2219) 39 U/L COMPREHENSIVE METABOLIC [id number] 00:00:00 Test Item Value Reference Range Interpretation Comments GLUCOSE (test code = 2217) 349 MG/DL BUN (test code = 2208) 17 MG/DL CREATININE (test code = 2214) 0.80 MG/DL eGFR (2020 CKD-EPI) (test code 94 ML/MIN/1.73 = 54711) CALC BUN/CREAT (test code = 21 RATIO [...] (test code = 2219) 39 U/L HEMOGLOBIN [id number] 04:43:57 Test Item Value Reference Range Interpretation Comments HEMOGLOBIN A1c (test 11.5 % 4.2-5.6 H [facility] CAN DIABETES code = 76694) ASSOCIATION [employer] FOR HGB A1C: PREDIABETES/INC REASED [...] ATE TESTING OR LABORATORY C ONSULTATION. HEMOGLOBIN [id number] 00:00:00 Test Item Value Reference Range Interpretation Comments HEMOGLOBIN A1c (test code = 65855) 11.5 % HEMOGLOBIN [id number] 00:00:00 Test Item Value Reference Range Interpretation Comments HEMOGLOBIN A1c (test code = 86258) 11.5 % HEMOGLOBIN [id number] 00:00:00 Test Item Value Reference Range Interpretation Comments HEMOGLOBIN A1c (test code = 16025) 11.5 % HEMOGLOBIN [id number] 00:00:00 Test Item Value Reference Range Interpretation Comments HEMOGLOBIN A1c (test code = 76420) 11.5 % HEMOGLOBIN [id number] 00:00:00 Test Item Value Reference Range Interpretation Comments HEMOGLOBIN A1c (test code = 60911) 11.5 % HEMOGLOBIN [id number] 00:00:00 Test Item Value Reference Range Interpretation Comments HEMOGLOBIN A1c (test code = 94322) 11.5 % HEMOGLOBIN [id number] 00:00:00 Test Item Value Reference Range Interpretation Comments HEMOGLOBIN A1c (test code = 21472) 11.5 % HEMOGLOBIN [id number] 00:00:00 Test Item Value Reference Range Interpretation Comments HEMOGLOBIN A1c (test code = 27455) 11.5 % HEMOGLOBIN [id number] 00:00:00 Test Item Value Reference Range Interpretation Comments HEMOGLOBIN A1c (test code = 74325) 11.5 % HEMOGLOBIN [id number] 00:00:00 Test Item Value Reference Range Interpretation Comments HEMOGLOBIN A1c (test code = 89935) 11.5 % HEMOGLOBIN [id number] 00:00:00 Test Item Value Reference Range Interpretation Comments HEMOGLOBIN A1c (test code = 14769) 11.5 % HEMOGLOBIN [id number] 00:00:00 Test Item Value Reference Range Interpretation Comments HEMOGLOBIN A1c (test code = 82056) 11.5 % HEMOGLOBIN [id number] 00:00:00 Test Item Value Reference Range Interpretation Comments HEMOGLOBIN A1c (test code = 49651) 11.5 % HEMOGLOBIN [id number] 00:00:00 Test Item Value Reference Range Interpretation Comments HEMOGLOBIN A1c (test code = 66843) 11.5 % HEMOGLOBIN [id number] 00:00:00 Test Item Value Reference Range Interpretation Comments HEMOGLOBIN A1c (test code = 76462) 11.5 % HEMOGLOBIN [id number] 00:00:00 Test Item Value Reference Range Interpretation Comments HEMOGLOBIN A1c (test code = 71790) 11.5 % HEMOGLOBIN [id number] 00:00:00 Test Item Value Reference Range Interpretation Comments HEMOGLOBIN A1c (test code = 67659) 11.5 % HEMOGLOBIN [id number] 00:00:00 Test Item Value Reference Range Interpretation Comments HEMOGLOBIN A1c (test code = 59653) 11.5 % HEMOGLOBIN [id number] 00:00:00 Test Item Value Reference Range Interpretation Comments HEMOGLOBIN A1c (test code = 16302) 11.5 % HEMOGLOBIN [id number] 00:00:00 Test Item Value Reference Range Interpretation Comments HEMOGLOBIN A1c (test code = 53759) 11.5 % HEMOGLOBIN [id number] 00:00:00 Test Item Value Reference Range Interpretation Comments HEMOGLOBIN A1c (test code = 06299) 11.5 % HEMOGLOBIN [id number] 00:00:00 Test Item Value Reference Range Interpretation Comments HEMOGLOBIN A1c (test code = 09007) 11.5 % HEMOGLOBIN [id number] 00:00:00 Test Item Value Reference Range Interpretation Comments HEMOGLOBIN A1c (test code = 63870) 11.5 % HEMOGLOBIN [id number] 00:00:00 Test Item Value Reference Range Interpretation Comments HEMOGLOBIN A1c (test code = 30871) 11.5 % HEMOGLOBIN [id number] 00:00:00 Test Item Value Reference Range Interpretation Comments HEMOGLOBIN A1c (test code = 78615) 11.5 % HEMOGLOBIN [id number] 00:00:00 Test Item Value Reference Range Interpretation Comments HEMOGLOBIN A1c (test code = 19181) 11.5 % HEMOGLOBIN [id number] 00:00:00 Test Item Value Reference Range Interpretation Comments HEMOGLOBIN A1c (test code = 64368) 11.5 % HEMOGLOBIN [id number] 00:00:00 Test Item Value Reference Range Interpretation Comments HEMOGLOBIN A1c (test code = 23568) 11.5 % HEMOGLOBIN [id number] 00:00:00 Test Item Value Reference Range Interpretation Comments HEMOGLOBIN A1c (test code = 92644) 11.5 % HEMOGLOBIN [id number] 00:00:00 Test Item Value Reference Range Interpretation Comments HEMOGLOBIN A1c (test code = 77586) 11.5 % HEMOGLOBIN [id number] 00:00:00 Test Item Value Reference Range Interpretation Comments HEMOGLOBIN A1c (test code = 94145) 11.5 % HEMOGLOBIN [id number] 00:00:00 Test Item Value Reference Range Interpretation Comments HEMOGLOBIN A1c (test code = 52195) 11.5 % CULTURE, [id number] 11:34:56SPECIMEN NUMBER: [id number] CULTURE, URINE SPECIMEN NUMBER: [id number] SPECIMEN COMMENT: URINE SOURCE:URINE REPORT STATUS: FINAL FINAL REPORT: 10/25/2021 10-50,000 CFU/ML UROGENITAL NORMA PRESENT NO COMM ON PATHOGENSCULTURE, [id number] 00:00:00 Test Item Value Reference Range Interpretation Comments CULTURE, URINE (test SPECIMEN NUMBER: code = 18099) [id number] CULTURE, [id number] 00:00:00 Test Item Value Reference Range Interpretation Comments CULTURE, URINE (test SPECIMEN NUMBER: code = 51151) [id number] CULTURE, [id number] 00:00:00 Test Item Value Reference Range Interpretation Comments CULTURE, URINE (test SPECIMEN NUMBER: code = 86483) [id number] CULTURE, [id number] 00:00:00 Test Item Value Reference Range Interpretation Comments CULTURE, URINE (test SPECIMEN NUMBER: code = 79010) [id number] CULTURE, [id number] 00:00:00 Test Item Value Reference Range Interpretation Comments CULTURE, URINE (test SPECIMEN NUMBER: code = 06190) [id number] CULTURE, [id number] 00:00:00 Test Item Value Reference Range Interpretation Comments CULTURE, URINE (test SPECIMEN NUMBER: code = 21391) [id number] CULTURE, [id number] 00:00:00 Test Item Value Reference Range Interpretation Comments CULTURE, URINE (test SPECIMEN NUMBER: code = 17744) [id number] CULTURE, [id number] 00:00:00 Test Item Value Reference Range Interpretation Comments CULTURE, URINE (test SPECIMEN NUMBER: code = 73851) [id number] CULTURE, [id number] 00:00:00 Test Item Value Reference Range Interpretation Comments CULTURE, URINE (test SPECIMEN NUMBER: code = 17173) [id number] CULTURE, [id number] 00:00:00 Test Item Value Reference Range Interpretation Comments CULTURE, URINE (test SPECIMEN NUMBER: code = 62349) [id number] CULTURE, [id number] 00:00:00 Test Item Value Reference Range Interpretation Comments CULTURE, URINE (test SPECIMEN NUMBER: code = 16510) [id number] CULTURE, [id number] 00:00:00 Test Item Value Reference Range Interpretation Comments CULTURE, URINE (test SPECIMEN NUMBER: code = 48157) [id number] CULTURE, [id number] 00:00:00 Test Item Value Reference Range Interpretation Comments CULTURE, URINE (test SPECIMEN NUMBER: code = 79948) [id number] CULTURE, [id number] 00:00:00 Test Item Value Reference Range Interpretation Comments CULTURE, URINE (test SPECIMEN NUMBER: code = 53552) [id number] CULTURE, [id number] 00:00:00 Test Item Value Reference Range Interpretation Comments CULTURE, URINE (test SPECIMEN NUMBER: code = 04790) [id number] CULTURE, [id number] 00:00:00 Test Item Value Reference Range Interpretation Comments CULTURE, URINE (test SPECIMEN NUMBER: code = 36642) [id number] CULTURE, [id number] 00:00:00 Test Item Value Reference Range Interpretation Comments CULTURE, URINE (test SPECIMEN NUMBER: code = 05547) [id number] CULTURE, [id number] 00:00:00 Test Item Value Reference Range Interpretation Comments CULTURE, URINE (test SPECIMEN NUMBER: code = 26740) [id number] CULTURE, [id number] 00:00:00 Test Item Value Reference Range Interpretation Comments CULTURE, URINE (test SPECIMEN NUMBER: code = 37730) [id number] CULTURE, [id number] 00:00:00 Test Item Value Reference Range Interpretation Comments CULTURE, URINE (test SPECIMEN NUMBER: code = 12564) [id number] CULTURE, [id number] 00:00:00 Test Item Value Reference Range Interpretation Comments CULTURE, URINE (test SPECIMEN NUMBER: code = 72472) [id number] VAGINAL PATHOGENS DNA [id number] 11:55:20 Test Item Value Reference Range Interpretation Comments ANDIE SPECIES (test NEGATIVE NEGATIVE code = ) G. VAGINALIS (test NEGATIVE NEGATIVE code = ) T. VAGINALIS (test NEGATIVE NEGATIVE UNLESS O THERWISE code = ) INDICATED, ALL TESTING PERFORMED ATCLI [facility] [address] [place] [address] 4 LABORATORY DIRE CTOR: George SONGIA NUMBER [id number] [facility]. [id number] VAGINAL PATHOGENS DNA [id number] 00:00:00 Test Item Value Reference Range Interpretation Comments ANDIE SPECIES (test code = 32363) NEGATIVE G. VAGINALIS (test code = 65554) NEGATIVE T. VAGINALIS (test code = 43964) NEGATIVE VAGINAL PATHOGENS DNA [id number] 00:00:00 Test Item Value Reference Range Interpretation Comments ANDIE SPECIES (test code = 23213) NEGATIVE G. VAGINALIS (test code = 44087) NEGATIVE T. VAGINALIS (test code = 62708) NEGATIVE VAGINAL PATHOGENS DNA [id number] 00:00:00 Test Item Value Reference Range Interpretation Comments ANDIE SPECIES (test code = 09719) NEGATIVE G. VAGINALIS (test code = 70681) NEGATIVE T. VAGINALIS (test code = 90765) NEGATIVE VAGINAL PATHOGENS DNA [id number] 00:00:00 Test Item Value Reference Range Interpretation Comments ANDIE SPECIES (test code = 91938) NEGATIVE G. VAGINALIS (test code = 40738) NEGATIVE T. VAGINALIS (test code = 07143) NEGATIVE VAGINAL PATHOGENS DNA [id number] 00:00:00 Test Item Value Reference Range Interpretation Comments ANDIE SPECIES (test code = 09604) NEGATIVE G. VAGINALIS (test code = 65419) NEGATIVE T. VAGINALIS (test code = 16636) NEGATIVE VAGINAL PATHOGENS DNA [id number] 00:00:00 Test Item Value Reference Range Interpretation Comments ANDIE SPECIES (test code = 61122) NEGATIVE G. VAGINALIS (test code = 41788) NEGATIVE T. VAGINALIS (test code = 05775) NEGATIVE VAGINAL PATHOGENS DNA [id number] 00:00:00 Test Item Value Reference Range Interpretation Comments ANDIE SPECIES (test code = 64592) NEGATIVE G. VAGINALIS (test code = 18531) NEGATIVE T. VAGINALIS (test code = 38010) NEGATIVE VAGINAL PATHOGENS DNA [id number] 00:00:00 Test Item Value Reference Range Interpretation Comments ANDIE SPECIES (test code = 10592) NEGATIVE G. VAGINALIS (test code = 32741) NEGATIVE T. VAGINALIS (test code = 78414) NEGATIVE VAGINAL PATHOGENS DNA [id number] 00:00:00 Test Item Value Reference Range Interpretation Comments ANDIE SPECIES (test code = 30260) NEGATIVE G. VAGINALIS (test code = 92365) NEGATIVE T. VAGINALIS (test code = 34677) NEGATIVE VAGINAL PATHOGENS DNA [id number] 00:00:00 Test Item Value Reference Range Interpretation Comments ANDIE SPECIES (test code = 47236) NEGATIVE G. VAGINALIS (test code = 68306) NEGATIVE T. VAGINALIS (test code = 96081) NEGATIVE VAGINAL PATHOGENS DNA [id number] 00:00:00 Test Item Value Reference Range Interpretation Comments ANDIE SPECIES (test code = 65095) NEGATIVE G. VAGINALIS (test code = 30479) NEGATIVE T. VAGINALIS (test code = 92240) NEGATIVE VAGINAL PATHOGENS DNA [id number] 00:00:00 Test Item Value Reference Range Interpretation Comments ANDIE SPECIES (test code = 06149) NEGATIVE G. VAGINALIS (test code = 54819) NEGATIVE T. VAGINALIS (test code = 17019) NEGATIVE VAGINAL PATHOGENS DNA [id number] 00:00:00 Test Item Value Reference Range Interpretation Comments ANDIE SPECIES (test code = 86918) NEGATIVE G. VAGINALIS (test code = 69890) NEGATIVE T. VAGINALIS (test code = 31143) NEGATIVE VAGINAL PATHOGENS DNA [id number] 00:00:00 Test Item Value Reference Range Interpretation Comments ANDIE SPECIES (test code = 69783) NEGATIVE G. VAGINALIS (test code = 50026) NEGATIVE T. VAGINALIS (test code = 69275) NEGATIVE VAGINAL PATHOGENS DNA [id number] 00:00:00 Test Item Value Reference Range Interpretation Comments ANDIE SPECIES (test code = 18468) NEGATIVE G. VAGINALIS (test code = 16157) NEGATIVE T. VAGINALIS (test code = 58214) NEGATIVE VAGINAL PATHOGENS DNA [id number] 00:00:00 Test Item Value Reference Range Interpretation Comments ANDIE SPECIES (test code = 24207) NEGATIVE G. VAGINALIS (test code = 03290) NEGATIVE T. VAGINALIS (test code = 67624) NEGATIVE VAGINAL PATHOGENS DNA [id number] 00:00:00 Test Item Value Reference Range Interpretation Comments ANDIE SPECIES (test code = 59795) NEGATIVE G. VAGINALIS (test code = 35600) NEGATIVE T. VAGINALIS (test code = ) NEGATIVE VAGINAL PATHOGENS DNA [id number] 00:00:00 Test Item Value Reference Range Interpretation Comments ANDIE SPECIES (test code = 70656) NEGATIVE G. VAGINALIS (test code = 29950) NEGATIVE T. VAGINALIS (test code = 36498) NEGATIVE VAGINAL PATHOGENS DNA [id number] 00:00:00 Test Item Value Reference Range Interpretation Comments ANDIE SPECIES (test code = 72619) NEGATIVE G. VAGINALIS (test code = 88157) NEGATIVE T. VAGINALIS (test code = 11639) NEGATIVE VAGINAL PATHOGENS DNA [id number] 00:00:00 Test Item Value Reference Range Interpretation Comments ANDIE SPECIES (test code = 09823) NEGATIVE G. VAGINALIS (test code = 92405) NEGATIVE T. VAGINALIS (test code = 37057) NEGATIVE VAGINAL PATHOGENS DNA [id number] 00:00:00 Test Item Value Reference Range Interpretation Comments ANDIE SPECIES (test code = ) NEGATIVE G. VAGINALIS (test code = 59985) NEGATIVE T. VAGINALIS (test code = 77827) NEGATIVE POCT GLUCOSE (AUTOMATED)2021-10-17 01:51:54 Test Item Value Reference Range Interpretation Comments POCT GLU (test code = 2901271716) 365 mg/dL 70-110 H Lab Interpretation (test code = Abnormal 81273-2) [facility] GLUCOSE (AUTOMATED)2021-10-17 00:46:51 Test Item Value Reference Range Interpretation Comments POCT GLU (test code = 7374742282) 435 mg/dL 70-110 H Lab Interpretation (test code = Abnormal 27805-0) [facility] GLUCOSE(AGE >30DAYS)2021-10-17 00:41:00 Test Item Value Reference Range Interpretation Comments POCT Glu (age>30days) (test code = 435 mg/dL 70-110 A 3342) Lab Interpretation (test code = Abnormal 95247-7) [facility] [id number] 23:40:42 Test Item Value Reference Interpretation Comments Range TROPONIN I (test 0.001 ng/mL See_Comment [Automated code = 1068936789) message] The system which generated this result [...] biotin. Lab Interpretation Normal (test code = 97318-3) [facility] [id number] 23:37:40 Test Item Value Reference Range Interpretation Comments NT-proBNP (test code 20 pg/mL See_Comment [Autom ated = 4099736136) message] The system which generated this result transmitted reference range : <=125. The reference range was not used to interpret this result as normal/abnormal . CALVIN (test code = CALVIN) Biotin has been reported to cause a negative bias, interpret results relative to patient's use of biotin. Lab Interpretation Normal (test code = 70346-9) [facility]OLIC PAN[facility] (28700)2021-10-16 23:29:18 Test Item Value Reference Range Interpretation Comments NA (test code = 134 mmol/L 135-145 L 5787737607) K (test code = 4.4 mmol/L 3.5-5.0 1993427500) CL (test code = 97 mmol/L 98-108 L 3790073950) CO2 TOTAL (test code = 23 mmol/L 23-31 1712394604) AGAP (test code = 2-16 7722823500) BUN (test code = 21 mg/dL 7-23 2357153791) GLUCOSE (test code = 431 mg/dL 70-110 H 7883693886) CREATININE (test code = 0.88 mg/dL 0.50-1.04 0849502080) TOTAL BILI (test code = 0.5 mg/dL 0.1-1.7 2527171018) CALCIUM (test code = 9.2 mg/dL 8.6-10.6 0220858557) T PROTEIN (test code = 7.4 g/dL 6.3-8.2 2439888539) ALBUMIN (test code = 4.7 g/dL 3.5-5.0 2953753175) ALK PHOS (test code = 52 U/L 34-122 6012652319) ALTv (test code = 30 U/L 5-35 1742-6) AST(SGOT) (test code = 25 U/L 13-40 4683133273) eGFR (test code = mL/min/1.73m2 1615915335) CALVIN (test code = CALVIN) Association of [...] tests). Lab Interpretation Abnormal (test code = 81162-4) [facility] [id number] 23:20:10 Test Item Value Reference Range Interpretation [...] RDW-SD (test code = 40.5 fL 39.0-49.9 52179-0) RDW-CV (test code = 13.5 % 12.0-15.5 788-0) PLT (test code = See_Comment [Automated 777-3) message] The sy stem which generated this result transmitted reference range : 166 - 358 10*3/ ?L. The reference r doretha was not used to interpret this result as normal/abnormal . MPV (test code = 9.6 fL 9.5-12.9 36560-3) NRBC/100 WBC (test See_Comment [Automat ed code = 2128630768) message] The system which generated this result transmitted reference range : 0.0 - 10.0 /100 WBCs. The refer ence range was not u sed to interpret th is result as normal/abnormal . NRBC x10^3 (test code <0.01 See_Comment [Auto mated = 5908054515) message] The s ystem which generated this result transmitted reference range : 10*3/?L. The reference range was not used to interpret this result as normal/abnormal . GRAN MAT (NEUT) % 43.2 % (test code = 770-8) IMM GRAN % (test code 0.70 % = 1304068500) LYMPH % (test code = 42.8 % 736-9) MONO % (test code = 9.2 % 5905-5) EOS % (test code = 3.0 % 713-8) BASO % (test code = 1.1 % 706-2) GRAN MAT x10^3(ANC) 3.15 10*3/uL 1.88-7.09 (test code = 9686189509) IMM GRAN x10^3 (test 0.05 10*3/uL 0.00-0.06 code = 7480364311) LYMPH x10^3 (test code 3.12 10*3/uL 1.32-3.29 = 731-0) MONO x10^3 (test code 0.67 10*3/uL 0.33-0.92 = 742-7) EOS x10^3 (test code = 0.22 10*3/uL 0.03-0.39 711-2) BASO x10^3 (test code 0.08 10*3/uL 0.01-0.07 H = 704-7) Lab Interpretation Abnormal (test code = 14317-2) [facility] Whole [id number] 23:09:32 Test Item Value Reference Range Interpretation Comments LACTIC ACID (test code = 1.94 mmol/L 0.50-2.20 3819467373) Lab Interpretation (test code = Normal 16612-5) [facility] TexasPO[facility] [id number] 22:34:00 Test Item Value Reference Range Interpretation Comments POCT PREG (test code = 1605) Negative On board controls acceptable with Present C Line (test code = 3574) POCT PREG LOT # (test code = 3575) [id number] POCT PREG TEST DATE (test 2023-04-09 code = 3576) Lab Interpretation (test code = Normal 64177-8) [facility], [id number] 08:52:36SPECIMEN NUMBER: [id number] CULTURE, URINE SPECIMEN NUMBER: [id number] SPECIMEN COMMENT: URINE SOURCE: URINE REPORT STATUS: FINAL FINAL REPORT: 10/12/2021 >100,000 CFU/ML UROGENITAL NORMA PRESENT NO COMMON PATHOGENS UNLESS OTHERWISE INDICATED, ALL TESTING PERFORMED ATCLINICAL PATHOLOGY [employer] [address] [place] [address] HOUSE SUPERVISOR: NOAH DICKENS M.D. CLIA NUMBER [id number] [facility] [place]. [id number], [id number] 00:00:00 Test Item Value Reference Range Interpretation Comments CULTURE, URINE (test SPECIMEN NUMBER: code = 31001) [id number] CULTURE, [id number] 00:00:00 Test Item Value Reference Range Interpretation Comments CULTURE, URINE (test SPECIMEN NUMBER: code = 01068) [id number] CULTURE, [id number] 00:00:00 Test Item Value Reference Range Interpretation Comments CULTURE, URINE (test SPECIMEN NUMBER: code = 15108) [id number] CULTURE, [id number] 00:00:00 Test Item Value Reference Range Interpretation Comments CULTURE, URINE (test SPECIMEN NUMBER: code = 46222) [id number] CULTURE, [id number] 00:00:00 Test Item Value Reference Range Interpretation Comments CULTURE, URINE (test SPECIMEN NUMBER: code = 03283) [id number] CULTURE, [id number] 00:00:00 Test Item Value Reference Range Interpretation Comments CULTURE, URINE (test SPECIMEN NUMBER: code = 76257) [id number] CULTURE, [id number] 00:00:00 Test Item Value Reference Range Interpretation Comments CULTURE, URINE (test SPECIMEN NUMBER: code = 77533) [id number] CULTURE, [id number] 00:00:00 Test Item Value Reference Range Interpretation Comments CULTURE, URINE (test SPECIMEN NUMBER: code = 51394) [id number] CULTURE, [id number] 00:00:00 Test Item Value Reference Range Interpretation Comments CULTURE, URINE (test SPECIMEN NUMBER: code = 89615) [id number] CULTURE, [id number] 00:00:00 Test Item Value Reference Range Interpretation Comments CULTURE, URINE (test SPECIMEN NUMBER: code = 37133) [id number] CULTURE, [id number] 00:00:00 Test Item Value Reference Range Interpretation Comments CULTURE, URINE (test SPECIMEN NUMBER: code = 02040) [id number] CULTURE, [id number] 00:00:00 Test Item Value Reference Range Interpretation Comments CULTURE, URINE (test SPECIMEN NUMBER: code = 06209) [id number] CULTURE, [id number] 00:00:00 Test Item Value Reference Range Interpretation Comments CULTURE, URINE (test SPECIMEN NUMBER: code = 13011) [id number] CULTURE, [id number] 00:00:00 Test Item Value Reference Range Interpretation Comments CULTURE, URINE (test SPECIMEN NUMBER: code = 72818) [id number] CULTURE, [id number] 00:00:00 Test Item Value Reference Range Interpretation Comments CULTURE, URINE (test SPECIMEN NUMBER: code = 24062) [id number] CULTURE, [id number] 00:00:00 Test Item Value Reference Range Interpretation Comments CULTURE, URINE (test SPECIMEN NUMBER: code = 23808) [id number] CULTURE, [id number] 00:00:00 Test Item Value Reference Range Interpretation Comments CULTURE, URINE (test SPECIMEN NUMBER: code = 90679) [id number] CULTURE, [id number] 00:00:00 Test Item Value Reference Range Interpretation Comments CULTURE, URINE (test SPECIMEN NUMBER: code = 11523) [id number] CULTURE, [id number] 00:00:00 Test Item Value Reference Range Interpretation Comments CULTURE, URINE (test SPECIMEN NUMBER: code = 37291) [id number] CULTURE, [id number] 00:00:00 Test Item Value Reference Range Interpretation Comments CULTURE, URINE (test SPECIMEN NUMBER: code = 45838) [id number] CULTURE, [id number] 00:00:00 Test Item Value Reference Range Interpretation Comments CULTURE, URINE (test SPECIMEN NUMBER: code = 57394) [id number] URINE CULTURE, NO [id number] 09:46:36SPECIMEN NUMBER: [id number] URINE CULTURE, NO SENS SPECIMEN NUMBER: [id number] SPECIMEN COMMENT: URINESOURCE: URINE REPORT STATUS: FINAL FINAL REPORT: 10/08/2021 50-100,000 CFU/ML UROGENITAL NORMA PRESENT NO COMMON PATHOGENSURINE CULTURE, NO [id number] 00:00:00 Test Item Value Reference Range Interpretation Comments URINE CULTURE, NO SPECIMEN NUMBER: SENS (test code = 831422065 42884) URINE CULTURE, NO [id number] 00:00:00 Test Item Value Reference Range Interpretation Comments URINE CULTURE, NO SPECIMEN NUMBER: SENS (test code = 179359505 54904) URINE CULTURE, NO [id number] 00:00:00 Test Item Value Reference Range Interpretation Comments URINE CULTURE, NO SPECIMEN NUMBER: SENS (test code = 009565821 92822) URINE CULTURE, NO [id number] 00:00:00 Test Item Value Reference Range Interpretation Comments URINE CULTURE, NO SPECIMEN NUMBER: SENS (test code = 441384637 10827) URINE CULTURE, NO [id number] 00:00:00 Test Item Value Reference Range Interpretation Comments URINE CULTURE, NO SPECIMEN NUMBER: SENS (test code = 890387969 18616) URINE CULTURE, NO [id number] 00:00:00 Test Item Value Reference Range Interpretation Comments URINE CULTURE, NO SPECIMEN NUMBER: SENS (test code = 678860555 50418) URINE CULTURE, NO [id number] 00:00:00 Test Item Value Reference Range Interpretation Comments URINE CULTURE, NO SPECIMEN NUMBER: SENS (test code = 927001408 79453) URINE CULTURE, NO [id number] 00:00:00 Test Item Value Reference Range Interpretation Comments URINE CULTURE, NO SPECIMEN NUMBER: SENS (test code = 965329084 96759) URINE CULTURE, NO [id number] 00:00:00 Test Item Value Reference Range Interpretation Comments URINE CULTURE, NO SPECIMEN NUMBER: SENS (test code = 170901276 49114) URINE CULTURE, NO [id number] 00:00:00 Test Item Value Reference Range Interpretation Comments URINE CULTURE, NO SPECIMEN NUMBER: SENS (test code = 014189161 50892) URINE CULTURE, NO [id number] 00:00:00 Test Item Value Reference Range Interpretation Comments URINE CULTURE, NO SPECIMEN NUMBER: SENS (test code = 902022395 10365) URINE CULTURE, NO [id number] 00:00:00 Test Item Value Reference Range Interpretation Comments URINE CULTURE, NO SPECIMEN NUMBER: SENS (test code = 045620366 04349) URINE CULTURE, NO [id number] 00:00:00 Test Item Value Reference Range Interpretation Comments URINE CULTURE, NO SPECIMEN NUMBER: SENS (test code = [id number]) URINE CULTURE, NO [id number] 00:00:00 Test Item Value Reference Range Interpretation Comments URINE CULTURE, NO SPECIMEN NUMBER: SENS (test code = [id number]) URINE CULTURE, NO [id number] 00:00:00 Test Item Value Reference Range Interpretation Comments URINE CULTURE, NO SPECIMEN NUMBER: SENS (test code = [id number]) URINE CULTURE, NO [id number] 00:00:00 Test Item Value Reference Range Interpretation Comments URINE CULTURE, NO SPECIMEN NUMBER: SENS (test code = [id number] 00710) URINE CULTURE, NO [id number] 00:00:00 Test Item Value Reference Range Interpretation Comments URINE CULTURE, NO SPECIMEN NUMBER: SENS (test code = [id number] 52407) URINE CULTURE, NO [id number] 00:00:00 Test Item Value Reference Range Interpretation Comments URINE CULTURE, NO SPECIMEN NUMBER: SENS (test code = [id number] 96493) URINE CULTURE, NO [id number] 00:00:00 Test Item Value Reference Range Interpretation Comments URINE CULTURE, NO SPECIMEN NUMBER: SENS (test code = [id number] 91555) URINE CULTURE, NO [id number] 00:00:00 Test Item Value Reference Range Interpretation Comments URINE CULTURE, NO SPECIMEN NUMBER: SENS (test code = [id number] 30261) URINE CULTURE, NO [id number] 00:00:00 Test Item Value Reference Range Interpretation Comments URINE CULTURE, NO SPECIMEN NUMBER: SENS (test code = [id number] 96663) CBC W/AUTO DIFF WITH [id number] 07:54:02 Test Item Value Reference Range Interpretation [...] RBCS 0.00 K/UL 0.00-0.11 (test code = 73226) COMPREHENSIVE METABOLIC [id number] 05:34:02 Test Item Value Reference Range Interpretation Comments GLUCOSE (test code = 108 MG/DL 70-99 H 2216) BUN (test code = 17 MG/DL 12-28) CREATININE (test 0.84 MG/DL 0.60-1.30 code = 2214) eGFR (2020 CKD-EPI) 88 >60 (test code = 07377) ML/MIN/1.73 CALC BUN/CREAT (test 20 RATIO 6-28 code = 2235) SODIUM (test code = 141 MEQ/L 110-505 0008) POTASSIUM (test code 4.0 MEQ/L 3.5-5.4 = [...] PERFORM ED [facility], [facility]. [address] [place] [id number] [place] [address] DIRECTOR: NOAH DICKENS M.D. CLIA NUMBER [id number] CAP ACCREDITATION N O. [id number] CBC W/AUTO [id number] 00:00:00 Test Item Value Reference Range Interpretation [...] NUCLEATED RBCS (test code = 0.00 K/UL 31958) CBC W/AUTO [id number] 00:00:00 Test Item Value Reference Range Interpretation [...] NUCLEATED RBCS (test code = 0.00 K/UL 27845) CBC W/AUTO [id number] 00:00:00 Test Item Value Reference Range Interpretation [...] NUCLEATED RBCS (test code = 0.00 K/UL 72331) COMPREHENSIVE METABOLIC [id number] 00:00:00 Test Item Value Reference Range Interpretation Comments GLUCOSE (test code = 2217) 108 MG/DL BUN (test code = 2208) 17 MG/DL CREATININE (test code = 2214) 0.84 MG/DL eGFR (2020 CKD-EPI) (test code 88 ML/MIN/1.73 = 31968) CALC BUN/CREAT (test code = 20 RATIO [...] code = 2219) 28 U/L COMPREHENSIVE METABOLIC [id number] 00:00:00 Test Item Value Reference Range Interpretation Comments GLUCOSE (test code = 2217) 108 MG/DL BUN (test code = 2208) 17 MG/DL CREATININE (test code = 2214) 0.84 MG/DL eGFR (2020 CKD-EPI) (test code 88 ML/MIN/1.73 = 73434) CALC BUN/CREAT (test code = 20 RATIO [...] code = 2219) 28 U/L CBC W/AUTO [id number] 00:00:00 Test Item Value Reference Range Interpretation [...] code = 0.00 K/UL 40198) CBC W/AUTO [id number] 00:00:00 Test Item Value Reference Range Interpretation [...] NUCLEATED RBCS (test code = 0.00 K/UL 87608) CBC W/AUTO [id number] 00:00:00 Test Item Value Reference Range Interpretation [...] NUCLEATED RBCS (test code = 0.00 K/UL 39108) COMPREHENSIVE METABOLIC [id number] 00:00:00 Test Item Value Reference Range Interpretation Comments GLUCOSE (test code = 2217) 108 MG/DL BUN (test code = 2208) 17 MG/DL CREATININE (test code = 2214) 0.84 MG/DL eGFR (2020 CKD-EPI) (test code 88 ML/MIN/1.73 = 76273) CALC BUN/CREAT (test code = 20 RATIO [...] code = 2219) 28 U/L COMPREHENSIVE METABOLIC [id number] 00:00:00 Test Item Value Reference Range Interpretation Comments GLUCOSE (test code = 2217) 108 MG/DL BUN (test code = 2208) 17 MG/DL CREATININE (test code = 2214) 0.84 MG/DL eGFR (2020 CKD-EPI) (test code 88 ML/MIN/1.73 = 12904) CALC BUN/CREAT (test code = 20 RATIO [...] code = 2219) 28 U/L CBC W/AUTO [id number] 00:00:00 Test Item Value Reference Range Interpretation [...] NUCLEATED RBCS (test code = 0.00 K/UL 01617) CBC W/AUTO [id number] 00:00:00 Test Item Value Reference Range Interpretation [...] NUCLEATED RBCS (test code = 0.00 K/UL 07558) CBC W/AUTO [id number] 00:00:00 Test Item Value Reference Range Interpretation [...] NUCLEATED RBCS (test code = 0.00 K/UL 93102) COMPREHENSIVE METABOLIC [id number] 00:00:00 Test Item Value Reference Range Interpretation Comments GLUCOSE (test code = 2217) 108 MG/DL BUN (test code = 2208) 17 MG/DL CREATININE (test code = 2214) 0.84 MG/DL eGFR (2020 CKD-EPI) (test code 88 ML/MIN/1.73 = 19679) CALC BUN/CREAT (test code = 20 RATIO [...] code = 2219) 28 U/L COMPREHENSIVE METABOLIC [id number] 00:00:00 Test Item Value Reference Range Interpretation Comments GLUCOSE (test code = 2217) 108 MG/DL BUN (test code = 2208) 17 MG/DL CREATININE (test code = 2214) 0.84 MG/DL eGFR (2020 CKD-EPI) (test code 88 ML/MIN/1.73 = 98488) CALC BUN/CREAT (test code = 20 RATIO [...] code = 2219) 28 U/L CBC W/AUTO [id number] 00:00:00 Test Item Value Reference Range Interpretation [...] NUCLEATED RBCS (test code = 0.00 K/UL 16778) CBC W/AUTO [id number] 00:00:00 Test Item Value Reference Range Interpretation [...] NUCLEATED RBCS (test code = 0.00 K/UL 43830) CBC W/AUTO [id number] 00:00:00 Test Item Value Reference Range Interpretation [...] NUCLEATED RBCS (test code = 0.00 K/UL 17549) COMPREHENSIVE METABOLIC [id number] 00:00:00 Test Item Value Reference Range Interpretation Comments GLUCOSE (test code = 2217) 108 MG/DL BUN (test code = 2208) 17 MG/DL CREATININE (test code = 2214) 0.84 MG/DL eGFR (2020 CKD-EPI) (test code 88 ML/MIN/1.73 = 54207) CALC BUN/CREAT (test code = 20 RATIO [...] code = 2219) 28 U/L COMPREHENSIVE METABOLIC [id number] 00:00:00 Test Item Value Reference Range Interpretation Comments GLUCOSE (test code = 2217) 108 MG/DL BUN (test code = 2208) 17 MG/DL CREATININE (test code = 2214) 0.84 MG/DL eGFR (2020 CKD-EPI) (test code 88 ML/MIN/1.73 = 57419) CALC BUN/CREAT (test code = 20 RATIO [...] code = 2219) 28 U/L CBC W/AUTO [id number] 00:00:00 Test Item Value Reference Range Interpretation [...] NUCLEATED RBCS (test code = 0.00 K/UL 36906) CBC W/AUTO [id number] 00:00:00 Test Item Value Reference Range Interpretation [...] NUCLEATED RBCS (test code = 0.00 K/UL 03418) CBC W/AUTO [id number] 00:00:00 Test Item Value Reference Range Interpretation [...] NUCLEATED RBCS (test code = 0.00 K/UL 63506) COMPREHENSIVE METABOLIC [id number] 00:00:00 Test Item Value Reference Range Interpretation Comments GLUCOSE (test code = 2217) 108 MG/DL BUN (test code = 2208) 17 MG/DL CREATININE (test code = 2214) 0.84 MG/DL eGFR (2020 CKD-EPI) (test code 88 ML/MIN/1.73 = 91346) CALC BUN/CREAT (test code = 20 RATIO [...] code = 2219) 28 U/L COMPREHENSIVE METABOLIC [id number] 00:00:00 Test Item Value Reference Range Interpretation Comments GLUCOSE (test code = 2217) 108 MG/DL BUN (test code = 2208) 17 MG/DL CREATININE (test code = 2214) 0.84 MG/DL eGFR (2020 CKD-EPI) (test code 88 ML/MIN/1.73 = 06410) CALC BUN/CREAT (test code = 20 RATIO [...] code = 2219) 28 U/L CBC W/AUTO [id number] 00:00:00 Test Item Value Reference Range Interpretation [...] NUCLEATED RBCS (test code = 0.00 K/UL 92767) CBC W/AUTO [id number] 00:00:00 Test Item Value Reference Range Interpretation [...] NUCLEATED RBCS (test code = 0.00 K/UL 69069) CBC W/AUTO [id number] 00:00:00 Test Item Value Reference Range Interpretation [...] NUCLEATED RBCS (test code = 0.00 K/UL 85397) COMPREHENSIVE METABOLIC [id number] 00:00:00 Test Item Value Reference Range Interpretation Comments GLUCOSE (test code = 2217) 108 MG/DL BUN (test code = 2208) 17 MG/DL CREATININE (test code = 2214) 0.84 MG/DL eGFR (2020 CKD-EPI) (test code 88 ML/MIN/1.73 = 54266) CALC BUN/CREAT (test code = 20 RATIO [...] code = 2219) 28 U/L COMPREHENSIVE METABOLIC [id number] 00:00:00 Test Item Value Reference Range Interpretation Comments GLUCOSE (test code = 2217) 108 MG/DL BUN (test code = 2208) 17 MG/DL CREATININE (test code = 2214) 0.84 MG/DL eGFR (2020 CKD-EPI) (test code 88 ML/MIN/1.73 = 47413) CALC BUN/CREAT (test code = 20 RATIO [...] code = 2219) 28 U/L CBC W/AUTO [id number] 00:00:00 Test Item Value Reference Range Interpretation [...] NUCLEATED RBCS (test code = 0.00 K/UL 57531) CBC W/AUTO [id number] 00:00:00 Test Item Value Reference Range Interpretation [...] NUCLEATED RBCS (test code = 0.00 K/UL 24405) CBC W/AUTO [id number] 00:00:00 Test Item Value Reference Range Interpretation [...] NUCLEATED RBCS (test code = 0.00 K/UL 00482) COMPREHENSIVE METABOLIC [id number] 00:00:00 Test Item Value Reference Range Interpretation Comments GLUCOSE (test code = 2217) 108 MG/DL BUN (test code = 2208) 17 MG/DL CREATININE (test code = 2214) 0.84 MG/DL eGFR (2020 CKD-EPI) (test code 88 ML/MIN/1.73 = 78869) CALC BUN/CREAT (test code = 20 RATIO [...] code = 2219) 28 U/L COMPREHENSIVE METABOLIC [id number] 00:00:00 Test Item Value Reference Range Interpretation Comments GLUCOSE (test code = 2217) 108 MG/DL BUN (test code = 2208) 17 MG/DL CREATININE (test code = 2214) 0.84 MG/DL eGFR (2021 CKD-EPI) (test code 88 ML/MIN/1.73 = 78086) CALC BUN/CREAT (test code = 20 RATIO [...] code = 2219) 28 U/L CBC W/AUTO [id number] 00:00:00 Test Item Value Reference Range Interpretation [...] NUCLEATED RBCS (test code = 0.00 K/UL 30884) CBC W/AUTO [id number] 00:00:00 Test Item Value Reference Range Interpretation [...] NUCLEATED RBCS (test code = 0.00 K/UL 58563) COMPREHENSIVE METABOLIC [id number] 00:00:00 Test Item Value Reference Range Interpretation Comments GLUCOSE (test code = 2217) 108 MG/DL BUN (test code = 2208) 17 MG/DL CREATININE (test code = 2214) 0.84 MG/DL eGFR (2020 CKD-EPI) (test code 88 ML/MIN/1.73 = 50359) CALC BUN/CREAT (test code = 20 RATIO [...] code = 2219) 28 U/L CBC W/AUTO [id number] 00:00:00 Test Item Value Reference Range Interpretation [...] NUCLEATED RBCS (test code = 0.00 K/UL 01254) CBC W/AUTO [id number] 00:00:00 Test Item Value Reference Range Interpretation [...] NUCLEATED RBCS (test code = 0.00 K/UL 99434) CBC W/AUTO [id number] 00:00:00 Test Item Value Reference Range Interpretation [...] NUCLEATED RBCS (test code = 0.00 K/UL 63706) COMPREHENSIVE METABOLIC [id number] 00:00:00 Test Item Value Reference Range Interpretation Comments GLUCOSE (test code = 2217) 108 MG/DL BUN (test code = 2208) 17 MG/DL CREATININE (test code = 2214) 0.84 MG/DL eGFR (2020 CKD-EPI) (test code 88 ML/MIN/1.73 = 11571) CALC BUN/CREAT (test code = 20 RATIO [...] code = 2219) 28 U/L COMPREHENSIVE METABOLIC [id number] 00:00:00 Test Item Value Reference Range Interpretation Comments GLUCOSE (test code = 2217) 108 MG/DL BUN (test code = 2208) 17 MG/DL CREATININE (test code = 2214) 0.84 MG/DL eGFR (2020 CKD-EPI) (test code 88 ML/MIN/1.73 = 06869) CALC BUN/CREAT (test code = 20 RATIO [...] code = 2219) 28 U/L CBC W/AUTO [id number] 00:00:00 Test Item Value Reference Range Interpretation [...] NUCLEATED RBCS (test code = 0.00 K/UL 75516) CBC W/AUTO [id number] 00:00:00 Test Item Value Reference Range Interpretation [...] NUCLEATED RBCS (test code = 0.00 K/UL 96430) CBC W/AUTO [id number] 00:00:00 Test Item Value Reference Range Interpretation [...] NUCLEATED RBCS (test code = 0.00 K/UL 99914) COMPREHENSIVE METABOLIC [id number] 00:00:00 Test Item Value Reference Range Interpretation Comments GLUCOSE (test code = 2217) 108 MG/DL BUN (test code = 2208) 17 MG/DL CREATININE (test code = 2214) 0.84 MG/DL eGFR (2020 CKD-EPI) (test code 88 ML/MIN/1.73 = 65545) CALC BUN/CREAT (test code = 20 RATIO [...] code = 2219) 28 U/L COMPREHENSIVE METABOLIC [id number] 00:00:00 Test Item Value Reference Range Interpretation Comments GLUCOSE (test code = 2217) 108 MG/DL BUN (test code = 2208) 17 MG/DL CREATININE (test code = 2214) 0.84 MG/DL eGFR (2020 CKD-EPI) (test code 88 ML/MIN/1.73 = 18898) CALC BUN/CREAT (test code = 20 RATIO [...] code = 2219) 28 U/L CBC W/AUTO [id number] 00:00:00 Test Item Value Reference Range Interpretation [...] NUCLEATED RBCS (test code = 0.00 K/UL 77013) CBC W/AUTO [id number] 00:00:00 Test Item Value Reference Range Interpretation [...] NUCLEATED RBCS (test code = 0.00 K/UL 13558) CBC W/AUTO [id number] 00:00:00 Test Item Value Reference Range Interpretation [...] NUCLEATED RBCS (test code = 0.00 K/UL 05043) COMPREHENSIVE METABOLIC [id number] 00:00:00 Test Item Value Reference Range Interpretation Comments GLUCOSE (test code = 2217) 108 MG/DL BUN (test code = 2208) 17 MG/DL CREATININE (test code = 2214) 0.84 MG/DL eGFR (2020 CKD-EPI) (test code 88 ML/MIN/1.73 = 50171) CALC BUN/CREAT (test code = 20 RATIO [...] code = 2219) 28 U/L COMPREHENSIVE METABOLIC [id number] 00:00:00 Test Item Value Reference Range Interpretation Comments GLUCOSE (test code = 2217) 108 MG/DL BUN (test code = 2208) 17 MG/DL CREATININE (test code = 2214) 0.84 MG/DL eGFR (2020 CKD-EPI) (test code 88 ML/MIN/1.73 = 91606) CALC BUN/CREAT (test code = 20 RATIO [...] = 2219) 28 U/L COMP. METABOLIC PANEL (07976)[id number] 15:36:43 Test Item Value Reference Range Interpretation Comments NA (test code = 133 mmol/L 135-145 L 4807404287) K (test code = 4.8 mmol/L 3.5-5.0 7084153644) CL (test code = 96 mmol/L 98-108 L 6427709646) CO2 TOTAL (test code = 21 mmol/L 23-31 L 5459160244) AGAP (test code = 2-16 0712165382) BUN (test code = 30 mg/dL 7-23 H 8440113808) GLUCOSE (test code = 405 mg/dL 70-110 H 7299257784) CREATININE (test code = 0.74 mg/dL 0.50-1.04 0278289100) TOTAL BILI (test code = 0.6 mg/dL 0.1-1.9 2719191100) CALCIUM (test code = 9.7 mg/dL 8.6-10.6 0682366290) T PROTEIN (test code = 7.9 g/dL 6.3-8.2 0326841138) ALBUMIN (test code = 4.9 g/dL 3.5-5.0 2087829915) ALK PHOS (test code = 66 U/L 34-122 6227255686) ALTv (test code = 37 U/L 5-35 H 1742-6) AST(SGOT) (test code = 31 U/L 13-40 4472145255) eGFR (test code = mL/min/1.73m2 5277144534) CALVIN (test code = CALVIN) Association of [...] tests). Lab Interpretation Abnormal (test code = 61900-5) [facility] [id number] 15:26:02 Test Item Value Reference Range Interpretation [...] (test code = 38.2 fL 39.0-49.9 L 81818-7) RDW-CV (test code = 12.9 % 12.0-15.5 788-0) PLT (test code = See_Comment [Automated 777-3) message] The sy stem which generated this result transmitted reference range : 166 - 358 10*3/ ?L. The reference r doretha was not used to interpret this result as normal/abnormal . MPV (test code = 9.8 fL 9.5-12.9 87010-1) NRBC/100 WBC (test See_Comment [Automat ed code = 1601487668) message] The system which generated this result transmitted reference range : 0.0 - 10.0 /100 WBCs. The refer ence range was not u sed to interpret th is result as normal/abnormal . NRBC x10^3 (test code <0.01 See_Comment [Auto mated = 0454480433) message] The s ystem which generated this result transmitted reference range : 10*3/?L. The reference range was not used to interpret this result as normal/abnormal . GRAN MAT (NEUT) % 50.6 % (test code = 770-8) IMM GRAN % (test code 0.80 % = 9857203732) LYMPH % (test code = 37.0 % 736-9) MONO % (test code = 8.5 % 5905-5) EOS % (test code = 2.2 % 713-8) BASO % (test code = 0.9 % 706-2) GRAN MAT x10^3(ANC) 3.86 10*3/uL 1.88-7.09 (test code = 5453808523) IMM GRAN x10^3 (test 0.06 10*3/uL 0.00-0.06 code = 1229149778) LYMPH x10^3 (test code 2.83 10*3/uL 1.32-3.29 = 731-0) MONO x10^3 (test code 0.65 10*3/uL 0.33-0.92 = 742-7) EOS x10^3 (test code = 0.17 10*3/uL 0.03-0.39 711-2) BASO x10^3 (test code 0.07 10*3/uL 0.01-0.07 = 704-7) Lab Interpretation Abnormal (test code = 87536-6) [id number]00 Test Item Value Reference Range Interpretation Comments POCT PREG (test code = 1605) negative On board controls acceptable with present C Line (test code = 3574) POCT PREG LOT # (test code = 3575) [id number] POCT PREG TEST DATE (test 09/07/2022 code = 3576) Lab Interpretation (test code = Normal 82260-0) [id number] 08:37:00 Test Item Value Reference Range Interpretation Comments GLUBED (test code = GLUBED) 260 mg/dL 60-125 H [id number] 06:42:00 Test Item Value Reference Range Interpretation Comments GLUBED (test code = GLUBED) 265 mg/dL 60-125 H COVID 19 Asymptomatic IH [id number] 17:24:00 Test Item Value Reference Range Interpretation Comments COVID 19 Asymptomatic IH AG (test NEGATIVE NEGATIVE code = COVNONPUIAG) COMPREHENSIVE METABOLIC [id number] 05:38:33 Test Item Value Reference Range Interpretation Comments GLUCOSE (test code = 411 MG/DL 70-99 H 2216) BUN (test code = 24 MG/DL 6-20 H 2207) CREATININE (test 1.13 MG/DL 0.60-1.30 code = 2214) eGFR (2020 CKD-EPI) 62 ML/MIN/1.73 >60 (test code = 91368) CALC BUN/CREAT (test 21 RATIO 6-28 code = 2235) SODIUM (test code = 136 MEQ/L 842-037 8117) POTASSIUM (test code 5.0 MEQ/L 3.5-5.4 = [...] = 49 U/L 5-40 H 2218) LIPID [id number] 05:38:33 Test Item Value Reference Range Interpretation [...] MOREINFORMATION , SEE CLIENT ANNOUNCE MENT AT [email or web address] CalcLDL-C RISK RATIO LDL/HDL 2.79 RATIO <3.22 UNABLE T O CALCULATE (test code = 2238) UNLESS OT HERWISE INDICATED, ALL TESTING PERFORMED [facility] [address] [place] [address] 4 LABORATORY DIRE CTOR: NOAH TODD M.D. CLIA NUMBER [id number] [place] [id number] HEMOGLOBIN [id number] 03:55:33 Test Item Value Reference Range Interpretation Comments HEMOGLOBIN A1c (test 11.9 % 4.2-5.6 H [employer]ES code = 58184) ASSOCIATION [employer] FOR HGB A1C: PREDIABETES/INC REASED [...] TESTING OR LABORATORY C ONSULTATION. COMPREHENSIVE METABOLIC [id number] 00:00:00 Test Item Value Reference Range Interpretation Comments GLUCOSE (test code = 2217) 411 MG/DL BUN (test code = 2208) 24 MG/DL CREATININE (test code = 2214) 1.13 MG/DL eGFR (2020 CKD-EPI) (test code 62 ML/MIN/1.73 = 80647) CALC BUN/CREAT (test code = 21 RATIO [...] code = 2219) 49 U/L COMPREHENSIVE METABOLIC [id number] 00:00:00 Test Item Value Reference Range Interpretation Comments GLUCOSE (test code = 2217) 411 MG/DL BUN (test code = 2208) 24 MG/DL CREATININE (test code = 2214) 1.13 MG/DL eGFR (2020 CKD-EPI) (test code 62 ML/MIN/1.73 = 33306) CALC BUN/CREAT (test code = 21 RATIO [...] (test code = 2219) 49 U/L HEMOGLOBIN [id number] 00:00:00 Test Item Value Reference Range Interpretation Comments HEMOGLOBIN A1c (test code = 79274) 11.9 % HEMOGLOBIN [id number] 00:00:00 Test Item Value Reference Range Interpretation Comments HEMOGLOBIN A1c (test code = 66340) 11.9 % HEMOGLOBIN [id number] 00:00:00 Test Item Value Reference Range Interpretation Comments HEMOGLOBIN A1c (test code = 24960) 11.9 % LIPID [id number] 00:00:00 Test Item Value Reference Range Interpretation Comments CHOLESTEROL (test code = 2210) 176 MG/DL TRIGLYCERIDES (test code = 2232) 614 MG/DL HDL CHOLESTEROL (test code = 28 MG/DL 2220) CALC LDL CHOL (test code = 2237) (NOTE) MG/DL RISK RATIO LDL/HDL (test code = 2.79 RATIO 2238) LIPID [id number] 00:00:00 Test Item Value Reference Range Interpretation Comments CHOLESTEROL (test code = 2210) 176 MG/DL TRIGLYCERIDES (test code = 2232) 614 MG/DL HDL CHOLESTEROL (test code = 28 MG/DL 2220) CALC LDL CHOL (test code = 2237) (NOTE) MG/DL RISK RATIO LDL/HDL (test code = 2.79 RATIO 2238) COMPREHENSIVE METABOLIC [id number] 00:00:00 Test Item Value Reference Range Interpretation Comments GLUCOSE (test code = 2217) 411 MG/DL BUN (test code = 2208) 24 MG/DL CREATININE (test code = 2214) 1.13 MG/DL eGFR (2020 CKD-EPI) (test code 62 ML/MIN/1.73 = 00618) CALC BUN/CREAT (test code = 21 RATIO [...] code = 2219) 49 U/L COMPREHENSIVE METABOLIC [id number] 00:00:00 Test Item Value Reference Range Interpretation Comments GLUCOSE (test code = 2217) 411 MG/DL BUN (test code = 2208) 24 MG/DL CREATININE (test code = 2214) 1.13 MG/DL eGFR (2020 CKD-EPI) (test code 62 ML/MIN/1.73 = 40688) CALC BUN/CREAT (test code = 21 RATIO [...] (test code = 2219) 49 U/L HEMOGLOBIN [id number] 00:00:00 Test Item Value Reference Range Interpretation Comments HEMOGLOBIN A1c (test code = 31325) 11.9 % HEMOGLOBIN [id number] 00:00:00 Test Item Value Reference Range Interpretation Comments HEMOGLOBIN A1c (test code = 12556) 11.9 % HEMOGLOBIN [id number] 00:00:00 Test Item Value Reference Range Interpretation Comments HEMOGLOBIN A1c (test code = 80977) 11.9 % LIPID [id number] 00:00:00 Test Item Value Reference Range Interpretation Comments CHOLESTEROL (test code = 2210) 176 MG/DL TRIGLYCERIDES (test code = 2232) 614 MG/DL HDL CHOLESTEROL (test code = 28 MG/DL 2219) CALC LDL CHOL (test code = 2237) (NOTE) MG/DL RISK RATIO LDL/HDL (test code = 2.79 RATIO 8) LIPID [id number] 00:00:00 Test Item Value Reference Range Interpretation Comments CHOLESTEROL (test code = 2210) 176 MG/DL TRIGLYCERIDES (test code = 2232) 614 MG/DL HDL CHOLESTEROL (test code = 28 MG/DL 0) CALC LDL CHOL (test code = 2237) (NOTE) MG/DL RISK RATIO LDL/HDL (test code = 2.79 RATIO 2238) COMPREHENSIVE METABOLIC [id number] 00:00:00 Test Item Value Reference Range Interpretation Comments GLUCOSE (test code = 2217) 411 MG/DL BUN (test code = 2208) 24 MG/DL CREATININE (test code = 2214) 1.13 MG/DL eGFR (2020 CKD-EPI) (test code 62 ML/MIN/1.73 = 00034) CALC BUN/CREAT (test code = 21 RATIO [...] code = 2219) 49 U/L COMPREHENSIVE METABOLIC [id number] 00:00:00 Test Item Value Reference Range Interpretation Comments GLUCOSE (test code = 2217) 411 MG/DL BUN (test code = 2208) 24 MG/DL CREATININE (test code = 2214) 1.13 MG/DL eGFR (2020 CKD-EPI) (test code 62 ML/MIN/1.73 = 51184) CALC BUN/CREAT (test code = 21 RATIO [...] (test code = 2219) 49 U/L HEMOGLOBIN [id number] 00:00:00 Test Item Value Reference Range Interpretation Comments HEMOGLOBIN A1c (test code = 89847) 11.9 % HEMOGLOBIN [id number] 00:00:00 Test Item Value Reference Range Interpretation Comments HEMOGLOBIN A1c (test code = 23255) 11.9 % HEMOGLOBIN [id number] 00:00:00 Test Item Value Reference Range Interpretation Comments HEMOGLOBIN A1c (test code = 03405) 11.9 % LIPID [id number] 00:00:00 Test Item Value Reference Range Interpretation Comments CHOLESTEROL (test code = 2210) 176 MG/DL TRIGLYCERIDES (test code = 2232) 614 MG/DL HDL CHOLESTEROL (test code = 28 MG/DL 2220) CALC LDL CHOL (test code = 2237) (NOTE) MG/DL RISK RATIO LDL/HDL (test code = 2.79 RATIO 2238) LIPID [id number] 00:00:00 Test Item Value Reference Range Interpretation Comments CHOLESTEROL (test code = 2210) 176 MG/DL TRIGLYCERIDES (test code = 2232) 614 MG/DL HDL CHOLESTEROL (test code = 28 MG/DL 2220) CALC LDL CHOL (test code = 2237) (NOTE) MG/DL RISK RATIO LDL/HDL (test code = 2.79 RATIO 2238) COMPREHENSIVE METABOLIC [id number] 00:00:00 Test Item Value Reference Range Interpretation Comments GLUCOSE (test code = 2217) 411 MG/DL BUN (test code = 8) 24 MG/DL CREATININE (test code = 2214) 1.13 MG/DL eGFR (2020 CKD-EPI) (test code 62 ML/MIN/1.73 = 92470) CALC BUN/CREAT (test code = 21 RATIO [...] code = 2219) 49 U/L COMPREHENSIVE METABOLIC [id number] 00:00:00 Test Item Value Reference Range Interpretation Comments GLUCOSE (test code = 2217) 411 MG/DL BUN (test code = 2208) 24 MG/DL CREATININE (test code = 2214) 1.13 MG/DL eGFR (2020 CKD-EPI) (test code 62 ML/MIN/1.73 = 29055) CALC BUN/CREAT (test code = 21 RATIO [...] (test code = 2219) 49 U/L HEMOGLOBIN [id number] 00:00:00 Test Item Value Reference Range Interpretation Comments HEMOGLOBIN A1c (test code = 37029) 11.9 % HEMOGLOBIN [id number] 00:00:00 Test Item Value Reference Range Interpretation Comments HEMOGLOBIN A1c (test code = 76533) 11.9 % HEMOGLOBIN [id number] 00:00:00 Test Item Value Reference Range Interpretation Comments HEMOGLOBIN A1c (test code = 18926) 11.9 % LIPID [id number] 00:00:00 Test Item Value Reference Range Interpretation Comments CHOLESTEROL (test code = 2210) 176 MG/DL TRIGLYCERIDES (test code = 2232) 614 MG/DL HDL CHOLESTEROL (test code = 28 MG/DL 2220) CALC LDL CHOL (test code = 2237) (NOTE) MG/DL RISK RATIO LDL/HDL (test code = 2.79 RATIO 2238) LIPID [id number] 00:00:00 Test Item Value Reference Range Interpretation Comments CHOLESTEROL (test code = 2210) 176 MG/DL TRIGLYCERIDES (test code = 2232) 614 MG/DL HDL CHOLESTEROL (test code = 28 MG/DL 2220) CALC LDL CHOL (test code = 2237) (NOTE) MG/DL RISK RATIO LDL/HDL (test code = 2.79 RATIO 2238) COMPREHENSIVE METABOLIC [id number] 00:00:00 Test Item Value Reference Range Interpretation Comments GLUCOSE (test code = 2217) 411 MG/DL BUN (test code = 2208) 24 MG/DL CREATININE (test code = 2214) 1.13 MG/DL eGFR (2020 CKD-EPI) (test code 62 ML/MIN/1.73 = 51529) CALC BUN/CREAT (test code = 21 RATIO [...] code = 2219) 49 U/L COMPREHENSIVE METABOLIC [id number] 00:00:00 Test Item Value Reference Range Interpretation Comments GLUCOSE (test code = 2217) 411 MG/DL BUN (test code = 2208) 24 MG/DL CREATININE (test code = 2214) 1.13 MG/DL eGFR (2020 CKD-EPI) (test code 62 ML/MIN/1.73 = 82744) CALC BUN/CREAT (test code = 21 RATIO [...] (test code = 2219) 49 U/L HEMOGLOBIN [id number] 00:00:00 Test Item Value Reference Range Interpretation Comments HEMOGLOBIN A1c (test code = 31221) 11.9 % HEMOGLOBIN [id number] 00:00:00 Test Item Value Reference Range Interpretation Comments HEMOGLOBIN A1c (test code = 39599) 11.9 % HEMOGLOBIN [id number] 00:00:00 Test Item Value Reference Range Interpretation Comments HEMOGLOBIN A1c (test code = 81061) 11.9 % LIPID [id number] 00:00:00 Test Item Value Reference Range Interpretation Comments CHOLESTEROL (test code = 2210) 176 MG/DL TRIGLYCERIDES (test code = 2232) 614 MG/DL HDL CHOLESTEROL (test code = 28 MG/DL 2219) CALC LDL CHOL (test code = 223) (NOTE) MG/DL RISK RATIO LDL/HDL (test code = 2.79 RATIO 8) LIPID [id number] 00:00:00 Test Item Value Reference Range Interpretation Comments CHOLESTEROL (test code = 2210) 176 MG/DL TRIGLYCERIDES (test code = 2232) 614 MG/DL HDL CHOLESTEROL (test code = 28 MG/DL 0) CALC LDL CHOL (test code = 2237) (NOTE) MG/DL RISK RATIO LDL/HDL (test code = 2.79 RATIO 2238) COMPREHENSIVE METABOLIC [id number] 00:00:00 Test Item Value Reference Range Interpretation Comments GLUCOSE (test code = 2217) 411 MG/DL BUN (test code = 2208) 24 MG/DL CREATININE (test code = 2214) 1.13 MG/DL eGFR (2020 CKD-EPI) (test code 62 ML/MIN/1.73 = 62614) CALC BUN/CREAT (test code = 21 RATIO [...] code = 2219) 49 U/L COMPREHENSIVE METABOLIC [id number] 00:00:00 Test Item Value Reference Range Interpretation Comments GLUCOSE (test code = 2217) 411 MG/DL BUN (test code = 2208) 24 MG/DL CREATININE (test code = 2214) 1.13 MG/DL eGFR (2020 CKD-EPI) (test code 62 ML/MIN/1.73 = 77533) CALC BUN/CREAT (test code = 21 RATIO [...] (test code = 2219) 49 U/L HEMOGLOBIN [id number] 00:00:00 Test Item Value Reference Range Interpretation Comments HEMOGLOBIN A1c (test code = 03925) 11.9 % HEMOGLOBIN [id number] 00:00:00 Test Item Value Reference Range Interpretation Comments HEMOGLOBIN A1c (test code = 85252) 11.9 % HEMOGLOBIN [id number] 00:00:00 Test Item Value Reference Range Interpretation Comments HEMOGLOBIN A1c (test code = 71362) 11.9 % LIPID [id number] 00:00:00 Test Item Value Reference Range Interpretation Comments CHOLESTEROL (test code = 2210) 176 MG/DL TRIGLYCERIDES (test code = 2232) 614 MG/DL HDL CHOLESTEROL (test code = 28 MG/DL 2220) CALC LDL CHOL (test code = 2237) (NOTE) MG/DL RISK RATIO LDL/HDL (test code = 2.79 RATIO 2238) LIPID [id number] 00:00:00 Test Item Value Reference Range Interpretation Comments CHOLESTEROL (test code = 2210) 176 MG/DL TRIGLYCERIDES (test code = 2232) 614 MG/DL HDL CHOLESTEROL (test code = 28 MG/DL 2220) CALC LDL CHOL (test code = 2237) (NOTE) MG/DL RISK RATIO LDL/HDL (test code = 2.79 RATIO 2238) COMPREHENSIVE METABOLIC [id number] 00:00:00 Test Item Value Reference Range Interpretation Comments GLUCOSE (test code = 2217) 411 MG/DL BUN (test code = 2208) 24 MG/DL CREATININE (test code = 2214) 1.13 MG/DL eGFR (2020 CKD-EPI) (test code 62 ML/MIN/1.73 = 56764) CALC BUN/CREAT (test code = 21 RATIO [...] code = 2219) 49 U/L COMPREHENSIVE METABOLIC [id number] 00:00:00 Test Item Value Reference Range Interpretation Comments GLUCOSE (test code = 2216) 411 MG/DL BUN (test code = 8) 24 MG/DL CREATININE (test code = 2214) 1.13 MG/DL eGFR (2020 CKD-EPI) (test code 62 ML/MIN/1.73 = 48099) CALC BUN/CREAT (test code = 21 RATIO [...] (test code = 2219) 49 U/L HEMOGLOBIN [id number] 00:00:00 Test Item Value Reference Range Interpretation Comments HEMOGLOBIN A1c (test code = 03600) 11.9 % HEMOGLOBIN [id number] 00:00:00 Test Item Value Reference Range Interpretation Comments HEMOGLOBIN A1c (test code = 62664) 11.9 % HEMOGLOBIN [id number] 00:00:00 Test Item Value Reference Range Interpretation Comments HEMOGLOBIN A1c (test code = 29569) 11.9 % LIPID [id number] 00:00:00 Test Item Value Reference Range Interpretation Comments CHOLESTEROL (test code = 2210) 176 MG/DL TRIGLYCERIDES (test code = 2232) 614 MG/DL HDL CHOLESTEROL (test code = 28 MG/DL 2220) CALC LDL CHOL (test code = 2237) (NOTE) MG/DL RISK RATIO LDL/HDL (test code = 2.79 RATIO 2238) LIPID [id number] 00:00:00 Test Item Value Reference Range Interpretation Comments CHOLESTEROL (test code = 2210) 176 MG/DL TRIGLYCERIDES (test code = 2232) 614 MG/DL HDL CHOLESTEROL (test code = 28 MG/DL 2220) CALC LDL CHOL (test code = 2237) (NOTE) MG/DL RISK RATIO LDL/HDL (test code = 2.79 RATIO 2238) COMPREHENSIVE METABOLIC [id number] 00:00:00 Test Item Value Reference Range Interpretation Comments GLUCOSE (test code = 2217) 411 MG/DL BUN (test code = 2208) 24 MG/DL CREATININE (test code = 2214) 1.13 MG/DL eGFR (2020 CKD-EPI) (test code 62 ML/MIN/1.73 = 38272) CALC BUN/CREAT (test code = 21 RATIO [...] (test code = 2219) 49 U/L HEMOGLOBIN [id number] 00:00:00 Test Item Value Reference Range Interpretation Comments HEMOGLOBIN A1c (test code = 54001) 11.9 % HEMOGLOBIN [id number] 00:00:00 Test Item Value Reference Range Interpretation Comments HEMOGLOBIN A1c (test code = 68093) 11.9 % LIPID [id number] 00:00:00 Test Item Value Reference Range Interpretation Comments CHOLESTEROL (test code = 2210) 176 MG/DL TRIGLYCERIDES (test code = 2232) 614 MG/DL HDL CHOLESTEROL (test code = 28 MG/DL 0) CALC LDL CHOL (test code = 2237) (NOTE) MG/DL RISK RATIO LDL/HDL (test code = 2.79 RATIO 2238) COMPREHENSIVE METABOLIC [id number] 00:00:00 Test Item Value Reference Range Interpretation Comments GLUCOSE (test code = 2217) 411 MG/DL BUN (test code = 2208) 24 MG/DL CREATININE (test code = 2214) 1.13 MG/DL eGFR (2020 CKD-EPI) (test code 62 ML/MIN/1.73 = 66933) CALC BUN/CREAT (test code = 21 RATIO [...] code = 2219) 49 U/L COMPREHENSIVE METABOLIC [id number] 00:00:00 Test Item Value Reference Range Interpretation Comments GLUCOSE (test code = 2217) 411 MG/DL BUN (test code = 2208) 24 MG/DL CREATININE (test code = 2214) 1.13 MG/DL eGFR (2020 CKD-EPI) (test code 62 ML/MIN/1.73 = 56963) CALC BUN/CREAT (test code = 21 RATIO [...] (test code = 2219) 49 U/L HEMOGLOBIN [id number] 00:00:00 Test Item Value Reference Range Interpretation Comments HEMOGLOBIN A1c (test code = 73648) 11.9 % HEMOGLOBIN [id number] 00:00:00 Test Item Value Reference Range Interpretation Comments HEMOGLOBIN A1c (test code = 44655) 11.9 % HEMOGLOBIN [id number] 00:00:00 Test Item Value Reference Range Interpretation Comments HEMOGLOBIN A1c (test code = 67030) 11.9 % LIPID [id number] 00:00:00 Test Item Value Reference Range Interpretation Comments CHOLESTEROL (test code = 2210) 176 MG/DL TRIGLYCERIDES (test code = 2232) 614 MG/DL HDL CHOLESTEROL (test code = 28 MG/DL 2220) CALC LDL CHOL (test code = 2237) (NOTE) MG/DL RISK RATIO LDL/HDL (test code = 2.79 RATIO 2238) LIPID [id number] 00:00:00 Test Item Value Reference Range Interpretation Comments CHOLESTEROL (test code = 2210) 176 MG/DL TRIGLYCERIDES (test code = 2232) 614 MG/DL HDL CHOLESTEROL (test code = 28 MG/DL 2220) CALC LDL CHOL (test code = 2237) (NOTE) MG/DL RISK RATIO LDL/HDL (test code = 2.79 RATIO 2238) COMPREHENSIVE METABOLIC [id number] 00:00:00 Test Item Value Reference Range Interpretation Comments GLUCOSE (test code = 2217) 411 MG/DL BUN (test code = 2208) 24 MG/DL CREATININE (test code = 2214) 1.13 MG/DL eGFR (2020 CKD-EPI) (test code 62 ML/MIN/1.73 = 98476) CALC BUN/CREAT (test code = 21 RATIO [...] code = 2219) 49 U/L COMPREHENSIVE METABOLIC [id number] 00:00:00 Test Item Value Reference Range Interpretation Comments GLUCOSE (test code = 2217) 411 MG/DL BUN (test code = 2208) 24 MG/DL CREATININE (test code = 2214) 1.13 MG/DL eGFR (2020 CKD-EPI) (test code 62 ML/MIN/1.73 = 93163) CALC BUN/CREAT (test code = 21 RATIO [...] (test code = 2219) 49 U/L HEMOGLOBIN [id number] 00:00:00 Test Item Value Reference Range Interpretation Comments HEMOGLOBIN A1c (test code = 30549) 11.9 % HEMOGLOBIN [id number] 00:00:00 Test Item Value Reference Range Interpretation Comments HEMOGLOBIN A1c (test code = 27634) 11.9 % HEMOGLOBIN [id number] 00:00:00 Test Item Value Reference Range Interpretation Comments HEMOGLOBIN A1c (test code = 86567) 11.9 % LIPID [id number] 00:00:00 Test Item Value Reference Range Interpretation Comments CHOLESTEROL (test code = 2210) 176 MG/DL TRIGLYCERIDES (test code = 2232) 614 MG/DL HDL CHOLESTEROL (test code = 28 MG/DL 2220) CALC LDL CHOL (test code = 2237) (NOTE) MG/DL RISK RATIO LDL/HDL (test code = 2.79 RATIO 2238) LIPID [id number] 00:00:00 Test Item Value Reference Range Interpretation Comments CHOLESTEROL (test code = 2210) 176 MG/DL TRIGLYCERIDES (test code = 2232) 614 MG/DL HDL CHOLESTEROL (test code = 28 MG/DL 2220) CALC LDL CHOL (test code = 2237) (NOTE) MG/DL RISK RATIO LDL/HDL (test code = 2.79 RATIO 2238) COMPREHENSIVE METABOLIC [id number] 00:00:00 Test Item Value Reference Range Interpretation Comments GLUCOSE (test code = 2217) 411 MG/DL BUN (test code = 2208) 24 MG/DL CREATININE (test code = 2214) 1.13 MG/DL eGFR (2020 CKD-EPI) (test code 62 ML/MIN/1.73 = 98742) CALC BUN/CREAT (test code = 21 RATIO [...] code = 2219) 49 U/L COMPREHENSIVE METABOLIC [id number] 00:00:00 Test Item Value Reference Range Interpretation Comments GLUCOSE (test code = 2217) 411 MG/DL BUN (test code = 2208) 24 MG/DL CREATININE (test code = 2214) 1.13 MG/DL eGFR (2020 CKD-EPI) (test code 62 ML/MIN/1.73 = 44935) CALC BUN/CREAT (test code = 21 RATIO [...] (test code = 2219) 49 U/L HEMOGLOBIN [id number] 00:00:00 Test Item Value Reference Range Interpretation Comments HEMOGLOBIN A1c (test code = 38366) 11.9 % HEMOGLOBIN [id number] 00:00:00 Test Item Value Reference Range Interpretation Comments HEMOGLOBIN A1c (test code = 63929) 11.9 % HEMOGLOBIN [id number] 00:00:00 Test Item Value Reference Range Interpretation Comments HEMOGLOBIN A1c (test code = 61383) 11.9 % LIPID [id number] 00:00:00 Test Item Value Reference Range Interpretation Comments CHOLESTEROL (test code = 2210) 176 MG/DL TRIGLYCERIDES (test code = 2232) 614 MG/DL HDL CHOLESTEROL (test code = 28 MG/DL 2219) CALC LDL CHOL (test code = 2237) (NOTE) MG/DL RISK RATIO LDL/HDL (test code = 2.79 RATIO 2238) LIPID [id number] 00:00:00 Test Item Value Reference Range Interpretation Comments CHOLESTEROL (test code = 2210) 176 MG/DL TRIGLYCERIDES (test code = 2232) 614 MG/DL HDL CHOLESTEROL (test code = 28 MG/DL 2220) CALC LDL CHOL (test code = 2237) (NOTE) MG/DL RISK RATIO LDL/HDL (test code = 2.79 RATIO 2238) CREATINE [id number] 13:35:13 Test Item Value Reference Range Interpretation Comments CK (test code = 6641491721) 71 U/L 33-194 Lab Interpretation (test code = Normal 21929-0) [facility] GLUCOSE (AUTOMATED)2021-06-18 13:07:35 Test Item Value Reference Range Interpretation Comments POCT GLU (test code = 3939934643) 351 mg/dL 70-110 H Lab Interpretation (test code = Abnormal 13010-4) [facility] GLUCOSE(AGE >30DAYS)2021-06-18 13:04:00 Test Item Value Reference Range Interpretation Comments POCT Glu (age>30days) (test code = 351 mg/dL 70-110 A 3342) Lab Interpretation (test code = Abnormal 27872-8) [facility] Metabolic Panel (38871)2021-06-18 11:14:20 Test Item Value Reference Range Interpretation Comments NA (test code = 134 mmol/L 135-145 L 0704384961) K (test code = 4.6 mmol/L 3.5-5.0 0909096744) CL (test code = 103 mmol/L 98-108 5807822823) CO2 TOTAL (test code = 18 mmol/L 23-31 L 4843064847) AGAP (test code = 2-16 7064978116) BUN (test code = 30 mg/dL 7-23 H 9670180911) GLUCOSE (test code = 390 mg/dL 70-110 H 0260250098) CREATININE (test code = 0.93 mg/dL 0.50-1.04 3031731734) TOTAL BILI (test code = 0.4 mg/dL 0.1-1.4 2863180071) CALCIUM (test code = 10.0 mg/dL 8.6-10.6 0439272736) T PROTEIN (test code = 7.6 g/dL 6.3-8.2 6832668269) ALBUMIN (test code = 4.5 g/dL 3.5-5.0 5895817511) ALK PHOS (test code = 51 U/L 34-122 6908845708) ALTv (test code = 34 U/L 5-35 1742-6) AST(SGOT) (test code = 26 U/L 13-40 4451073531) eGFR (test code = mL/min/1.73m2 3047314494) CALVIN (test code = CALVIN) Association of [...] tests). Lab Interpretation Abnormal (test code = 95317-0) [facility] [id number] 11:06:00 Test Item Value Reference Range Interpretation Comments POCT PREG (test code = 1605) neg On board controls acceptable with yes C Line (test code = 3574) POCT PREG LOT # (test code = 3575) [id number] POCT PREG TEST DATE (test 08/10/2022 code = 3576) Lab Interpretation (test code = Normal 52556-8) [facility] [id number] 11:00:39 Test Item Value Reference Range Interpretation Comments WBC (test code = See_Comment [Automated 6190-2) message] The sy stem which generated this result transmitted reference range : 4.30 - 11.10 10*3/?L. The reference range was not used to interpret this result as normal/abnormal . RBC (test code = See_Comment [Automated 639-8) message] The sy stem which generated this [...] RDW-SD (test code = 40.1 fL 39.0-49.9 61695-0) RDW-CV (test code = 13.2 % 12.0-15.5 788-0) PLT (test code = See_Comment [Automated 777-3) message] The sy stem which generated this result transmitted reference range : 166 - 358 10*3/ ?L. The reference r doretha was not used to interpret this result as normal/abnormal . MPV (test code = 9.5 fL 9.5-12.9 10911-4) NRBC/100 WBC (test See_Comment [Automat ed code = 8366342685) message] The system which generated this result transmitted reference range : 0.0 - 10.0 /100 WBCs. The refer ence range was not u sed to interpret th is result as normal/abnormal . NRBC x10^3 (test code <0.01 See_Comment [Auto mated = 7751476743) message] The s ystem which generated this result transmitted reference range : 10*3/?L. The reference range was not used to interpret this result as normal/abnormal . GRAN MAT (NEUT) % 43.7 % (test code = 770-8) IMM GRAN % (test code 0.70 % = 0930884878) LYMPH % (test code = 41.9 % 736-9) MONO % (test code = 8.8 % 5905-5) EOS % (test code = 3.6 % 713-8) BASO % (test code = 1.3 % 706-2) GRAN MAT x10^3(ANC) 2.68 10*3/uL 1.88-7.09 (test code = 6469552598) IMM GRAN x10^3 (test 0.04 10*3/uL 0.00-0.06 code = 4357585755) LYMPH x10^3 (test code 2.57 10*3/uL 1.32-3.29 = 731-0) MONO x10^3 (test code 0.54 10*3/uL 0.33-0.92 = 742-7) EOS x10^3 (test code = 0.22 10*3/uL 0.03-0.39 711-2) BASO x10^3 (test code 0.08 10*3/uL 0.01-0.07 H = 704-7) Lab Interpretation Abnormal (test code = 61990-0) [facility] [id number] 00:00:00 Test Item Value Reference Range Interpretation Comments ANDIE SPECIES (test code = ) NEGATIVE G. VAGINALIS (test code = 03285) NEGATIVE T. VAGINALIS (test code = 48192) NEGATIVE VAGINAL PATHOGENS DNA [id number] 00:00:00 Test Item Value Reference Range Interpretation Comments ANDIE SPECIES (test code = ) NEGATIVE G. VAGINALIS (test code = 40287) NEGATIVE T. VAGINALIS (test code = 64475) NEGATIVE VAGINAL PATHOGENS DNA [id number] 00:00:00 Test Item Value Reference Range Interpretation Comments ANDIE SPECIES (test code = ) NEGATIVE G. VAGINALIS (test code = 15022) NEGATIVE T. VAGINALIS (test code = 17578) NEGATIVE VAGINAL PATHOGENS DNA [id number] 00:00:00 Test Item Value Reference Range Interpretation Comments ANDIE SPECIES (test code = 25158) NEGATIVE G. VAGINALIS (test code = 18862) NEGATIVE T. VAGINALIS (test code = 03280) NEGATIVE VAGINAL PATHOGENS DNA [id number] 00:00:00 Test Item Value Reference Range Interpretation Comments ANDIE SPECIES (test code = 31250) NEGATIVE G. VAGINALIS (test code = 27189) NEGATIVE T. VAGINALIS (test code = 88527) NEGATIVE VAGINAL PATHOGENS DNA [id number] 00:00:00 Test Item Value Reference Range Interpretation Comments ANDIE SPECIES (test code = 01527) NEGATIVE G. VAGINALIS (test code = 73930) NEGATIVE T. VAGINALIS (test code = 84372) NEGATIVE VAGINAL PATHOGENS DNA [id number] 00:00:00 Test Item Value Reference Range Interpretation Comments ANDIE SPECIES (test code = 85371) NEGATIVE G. VAGINALIS (test code = 64702) NEGATIVE T. VAGINALIS (test code = 82210) NEGATIVE VAGINAL PATHOGENS DNA [id number] 00:00:00 Test Item Value Reference Range Interpretation Comments ANDIE SPECIES (test code = 11627) NEGATIVE G. VAGINALIS (test code = 26034) NEGATIVE T. VAGINALIS (test code = 93166) NEGATIVE VAGINAL PATHOGENS DNA [id number] 00:00:00 Test Item Value Reference Range Interpretation Comments ANDIE SPECIES (test code = 31485) NEGATIVE G. VAGINALIS (test code = 39715) NEGATIVE T. VAGINALIS (test code = 44622) NEGATIVE VAGINAL PATHOGENS DNA [id number] 00:00:00 Test Item Value Reference Range Interpretation Comments ANDIE SPECIES (test code = 57031) NEGATIVE G. VAGINALIS (test code = 28132) NEGATIVE T. VAGINALIS (test code = 68833) NEGATIVE VAGINAL PATHOGENS DNA [id number] 00:00:00 Test Item Value Reference Range Interpretation Comments ANDIE SPECIES (test code = 31402) NEGATIVE G. VAGINALIS (test code = 96491) NEGATIVE T. VAGINALIS (test code = 19120) NEGATIVE VAGINAL PATHOGENS DNA [id number] 00:00:00 Test Item Value Reference Range Interpretation Comments ANDEI SPECIES (test code = 58758) NEGATIVE G. VAGINALIS (test code = 40761) NEGATIVE T. VAGINALIS (test code = 81755) NEGATIVE VAGINAL PATHOGENS DNA [id number] 00:00:00 Test Item Value Reference Range Interpretation Comments ANDIE SPECIES (test code = 80059) NEGATIVE G. VAGINALIS (test code = 72660) NEGATIVE T. VAGINALIS (test code = 16137) NEGATIVE VAGINAL PATHOGENS DNA [id number] 00:00:00 Test Item Value Reference Range Interpretation Comments ANDIE SPECIES (test code = 17723) NEGATIVE G. VAGINALIS (test code = 15099) NEGATIVE T. VAGINALIS (test code = 10581) NEGATIVE VAGINAL PATHOGENS DNA [id number] 00:00:00 Test Item Value Reference Range Interpretation Comments ANDIE SPECIES (test code = 65343) NEGATIVE G. VAGINALIS (test code = 86198) NEGATIVE T. VAGINALIS (test code = 60187) NEGATIVE VAGINAL PATHOGENS DNA [id number] 00:00:00 Test Item Value Reference Range Interpretation Comments ANDIE SPECIES (test code = 96110) NEGATIVE G. VAGINALIS (test code = 93984) NEGATIVE T. VAGINALIS (test code = 19471) NEGATIVE VAGINAL PATHOGENS DNA [id number] 00:00:00 Test Item Value Reference Range Interpretation Comments ANDIE SPECIES (test code = 91054) NEGATIVE G. VAGINALIS (test code = 82635) NEGATIVE T. VAGINALIS (test code = 60264) NEGATIVE VAGINAL PATHOGENS DNA [id number] 00:00:00 Test Item Value Reference Range Interpretation Comments ANDIE SPECIES (test code = 01174) NEGATIVE G. VAGINALIS (test code = 17988) NEGATIVE T. VAGINALIS (test code = 43393) NEGATIVE VAGINAL PATHOGENS DNA [id number] 00:00:00 Test Item Value Reference Range Interpretation Comments ANDIE SPECIES (test code = 71928) NEGATIVE G. VAGINALIS (test code = 51131) NEGATIVE T. VAGINALIS (test code = 02443) NEGATIVE VAGINAL PATHOGENS DNA [id number] 00:00:00 Test Item Value Reference Range Interpretation Comments ANDIE SPECIES (test code = 08472) NEGATIVE G. VAGINALIS (test code = 69957) NEGATIVE T. VAGINALIS (test code = 09425) NEGATIVE VAGINAL PATHOGENS DNA [id number] 00:00:00 Test Item Value Reference Range Interpretation Comments ANDIE SPECIES (test code = 29609) NEGATIVE G. VAGINALIS (test code = 48485) NEGATIVE T. VAGINALIS (test code = 03992) NEGATIVE SARS-CoV-2 (COVID-19) by RT-PCR (HIGH RISK)2021-02-26 00:00:00 Test Item Value Reference Range Interpretation Comments SARS-CoV-2 INTERPRETATION (test NEGATIVE code = 89526) SOURCE (test code = 70755) NOT SPECIFIED SARS-CoV-2 (COVID-19) by RT-PCR (HIGH RISK)2021-02-26 00:00:00 Test Item Value Reference Range Interpretation Comments SARS-CoV-2 INTERPRETATION (test NEGATIVE code = 22934) SOURCE (test code = 05949) NOT SPECIFIED SARS-CoV-2 (COVID-19) by RT-PCR (HIGH RISK)2021-02-26 00:00:00 Test Item Value Reference Range Interpretation Comments SARS-CoV-2 INTERPRETATION (test NEGATIVE code = 46757) SOURCE (test code = 30761) NOT SPECIFIED SARS-CoV-2 (COVID-19) by RT-PCR (HIGH RISK)2021-02-26 00:00:00 Test Item Value Reference Range Interpretation Comments SARS-CoV-2 INTERPRETATION (test NEGATIVE code = 92315) SOURCE (test code = 83511) NOT SPECIFIED SARS-CoV-2 (COVID-19) by RT-PCR (HIGH RISK)2021-02-26 00:00:00 Test Item Value Reference Range Interpretation Comments SARS-CoV-2 INTERPRETATION (test NEGATIVE code = 54390) SOURCE (test code = 92575) NOT SPECIFIED SARS-CoV-2 (COVID-19) by RT-PCR (HIGH RISK)2021-02-26 00:00:00 Test Item Value Reference Range Interpretation Comments SARS-CoV-2 INTERPRETATION (test NEGATIVE code = 70690) SOURCE (test code = 99697) NOT SPECIFIED SARS-CoV-2 (COVID-19) by RT-PCR (HIGH RISK)2021-02-26 00:00:00 Test Item Value Reference Range Interpretation Comments SARS-CoV-2 INTERPRETATION (test NEGATIVE code = 74423) SOURCE (test code = 68803) NOT SPECIFIED SARS-CoV-2 (COVID-19) by RT-PCR (HIGH RISK)2021-02-26 00:00:00 Test Item Value Reference Range Interpretation Comments SARS-CoV-2 INTERPRETATION (test NEGATIVE code = 44140) SOURCE (test code = 58078) NOT SPECIFIED SARS-CoV-2 (COVID-19) by RT-PCR (HIGH RISK)2021-02-26 00:00:00 Test Item Value Reference Range Interpretation Comments SARS-CoV-2 INTERPRETATION (test NEGATIVE code = 13226) SOURCE (test code = 21478) NOT SPECIFIED SARS-CoV-2 (COVID-19) by RT-PCR (HIGH RISK)2021-02-26 00:00:00 Test Item Value Reference Range Interpretation Comments SARS-CoV-2 INTERPRETATION (test NEGATIVE code = 27189) SOURCE (test code = 39871) NOT SPECIFIED SARS-CoV-2 (COVID-19) by RT-PCR (HIGH RISK)2021-02-26 00:00:00 Test Item Value Reference Range Interpretation Comments SARS-CoV-2 INTERPRETATION (test NEGATIVE code = 64567) SOURCE (test code = 06767) NOT SPECIFIED SARS-CoV-2 (COVID-19) by RT-PCR (HIGH RISK)2021-02-26 00:00:00 Test Item Value Reference Range Interpretation Comments SARS-CoV-2 INTERPRETATION (test NEGATIVE code = 60686) SOURCE (test code = 98640) NOT SPECIFIED SARS-CoV-2 (COVID-19) by RT-PCR (HIGH RISK)2021-02-26 00:00:00 Test Item Value Reference Range Interpretation Comments SARS-CoV-2 INTERPRETATION (test NEGATIVE code = 10750) SOURCE (test code = 00587) NOT SPECIFIED SARS-CoV-2 (COVID-19) by RT-PCR (HIGH RISK)2021-02-26 00:00:00 Test Item Value Reference Range Interpretation Comments SARS-CoV-2 INTERPRETATION (test NEGATIVE code = 56254) SOURCE (test code = 05136) NOT SPECIFIED SARS-CoV-2 (COVID-19) by RT-PCR (HIGH RISK)2021-02-26 00:00:00 Test Item Value Reference Range Interpretation Comments SARS-CoV-2 INTERPRETATION (test NEGATIVE code = 20149) SOURCE (test code = 01151) NOT SPECIFIED SARS-CoV-2 (COVID-19) by RT-PCR (HIGH RISK)2021-02-26 00:00:00 Test Item Value Reference Range Interpretation Comments SARS-CoV-2 INTERPRETATION (test NEGATIVE code = 32981) SOURCE (test code = 05668) NOT SPECIFIED SARS-CoV-2 (COVID-19) by RT-PCR (HIGH RISK)2021-02-26 00:00:00 Test Item Value Reference Range Interpretation Comments SARS-CoV-2 INTERPRETATION (test NEGATIVE code = 07428) SOURCE (test code = 02113) NOT SPECIFIED SARS-CoV-2 (COVID-19) by RT-PCR (HIGH RISK)2021-02-26 00:00:00 Test Item Value Reference Range Interpretation Comments SARS-CoV-2 INTERPRETATION (test NEGATIVE code = 36611) SOURCE (test code = 52951) NOT SPECIFIED SARS-CoV-2 (COVID-19) by RT-PCR (HIGH RISK)2021-02-26 00:00:00 Test Item Value Reference Range Interpretation Comments SARS-CoV-2 INTERPRETATION (test NEGATIVE code = 22808) SOURCE (test code = 09194) NOT SPECIFIED SARS-CoV-2 (COVID-19) by RT-PCR (HIGH RISK)2021-02-26 00:00:00 Test Item Value Reference Range Interpretation Comments SARS-CoV-2 INTERPRETATION (test NEGATIVE code = 33621) SOURCE (test code = 59968) NOT SPECIFIED SARS-CoV-2 (COVID-19) by RT-PCR (HIGH RISK)2021-02-26 00:00:00 Test Item Value Reference Range Interpretation Comments SARS-CoV-2 INTERPRETATION (test NEGATIVE code = 74056) SOURCE (test code = 09388) NOT SPECIFIED CULTURE, URINE [ADDED]2021-02-13 00:00:00 Test Item Value Reference Range Interpretation Comments CULTURE, URINE (test SPECIMEN NUMBER: code = 14487) [id number] CULTURE, URINE [ADDED]2021-02-13 00:00:00 Test Item Value Reference Range Interpretation Comments CULTURE, URINE (test SPECIMEN NUMBER: code = 51338) [id number] CULTURE, URINE [ADDED]2021-02-13 00:00:00 Test Item Value Reference Range Interpretation Comments CULTURE, URINE (test SPECIMEN NUMBER: code = 93925) [id number] CULTURE, URINE [ADDED]2021-02-13 00:00:00 Test Item Value Reference Range Interpretation Comments CULTURE, URINE (test SPECIMEN NUMBER: code = 53692) [id number] CULTURE, URINE [ADDED]2021-02-13 00:00:00 Test Item Value Reference Range Interpretation Comments CULTURE, URINE (test SPECIMEN NUMBER: code = 41500) [id number] CULTURE, URINE [ADDED]2021-02-13 00:00:00 Test Item Value Reference Range Interpretation Comments CULTURE, URINE (test SPECIMEN NUMBER: code = 83438) [id number] CULTURE, URINE [ADDED]2021-02-13 00:00:00 Test Item Value Reference Range Interpretation Comments CULTURE, URINE (test SPECIMEN NUMBER: code = 76436) [id number] CULTURE, URINE [ADDED]2021-02-13 00:00:00 Test Item Value Reference Range Interpretation Comments CULTURE, URINE (test SPECIMEN NUMBER: code = 64994) [id number] CULTURE, URINE [ADDED]2021-02-13 00:00:00 Test Item Value Reference Range Interpretation Comments CULTURE, URINE (test SPECIMEN NUMBER: code = 36863) [id number] CULTURE, URINE [ADDED]2021-02-13 00:00:00 Test Item Value Reference Range Interpretation Comments CULTURE, URINE (test SPECIMEN NUMBER: code = 23199) [id number] CULTURE, URINE [ADDED]2021-02-13 00:00:00 Test Item Value Reference Range Interpretation Comments CULTURE, URINE (test SPECIMEN NUMBER: code = 27721) [id number] CULTURE, URINE [ADDED]2021-02-13 00:00:00 Test Item Value Reference Range Interpretation Comments CULTURE, URINE (test SPECIMEN NUMBER: code = 64761) [id number] CULTURE, URINE [ADDED]2021-02-13 00:00:00 Test Item Value Reference Range Interpretation Comments CULTURE, URINE (test SPECIMEN NUMBER: code = 28923) [id number] CULTURE, URINE [ADDED]2021-02-13 00:00:00 Test Item Value Reference Range Interpretation Comments CULTURE, URINE (test SPECIMEN NUMBER: code = 75884) [id number] CULTURE, URINE [ADDED]2021-02-13 00:00:00 Test Item Value Reference Range Interpretation Comments CULTURE, URINE (test SPECIMEN NUMBER: code = 83876) [id number] CULTURE, URINE [ADDED]2021-02-13 00:00:00 Test Item Value Reference Range Interpretation Comments CULTURE, URINE (test SPECIMEN NUMBER: code = 03552) [id number] CULTURE, URINE [ADDED]2021-02-13 00:00:00 Test Item Value Reference Range Interpretation Comments CULTURE, URINE (test SPECIMEN NUMBER: code = 02968) [id number] CULTURE, URINE [ADDED]2021-02-13 00:00:00 Test Item Value Reference Range Interpretation Comments CULTURE, URINE (test SPECIMEN NUMBER: code = 47139) [id number] CULTURE, URINE [ADDED]2021-02-13 00:00:00 Test Item Value Reference Range Interpretation Comments CULTURE, URINE (test SPECIMEN NUMBER: code = 48027) [id number] CULTURE, URINE [ADDED]2021-02-13 00:00:00 Test Item Value Reference Range Interpretation Comments CULTURE, URINE (test SPECIMEN NUMBER: code = 88362) [id number] CULTURE, URINE [ADDED]2021-02-13 00:00:00 Test Item Value Reference Range Interpretation Comments CULTURE, URINE (test SPECIMEN NUMBER: code = 66949) [id number] VAGINAL PATHOGENS DNA [id number] 00:00:00 Test Item Value Reference Range Interpretation Comments ANDIE SPECIES (test code = ) NEGATIVE G. VAGINALIS (test code = 90675) POSITIVE T. VAGINALIS (test code = 20866) NEGATIVE VAGINAL PATHOGENS DNA [id number] 00:00:00 Test Item Value Reference Range Interpretation Comments ANDIE SPECIES (test code = 39092) NEGATIVE G. VAGINALIS (test code = 23627) POSITIVE T. VAGINALIS (test code = 69740) NEGATIVE VAGINAL PATHOGENS DNA [id number] 00:00:00 Test Item Value Reference Range Interpretation Comments ANDIE SPECIES (test code = 51676) NEGATIVE G. VAGINALIS (test code = 93150) POSITIVE T. VAGINALIS (test code = 70793) NEGATIVE VAGINAL PATHOGENS DNA [id number] 00:00:00 Test Item Value Reference Range Interpretation Comments ANDIE SPECIES (test code = 55041) NEGATIVE G. VAGINALIS (test code = 27636) POSITIVE T. VAGINALIS (test code = 66095) NEGATIVE VAGINAL PATHOGENS DNA [id number] 00:00:00 Test Item Value Reference Range Interpretation Comments ANDIE SPECIES (test code = 21200) NEGATIVE G. VAGINALIS (test code = 34154) POSITIVE T. VAGINALIS (test code = 71428) NEGATIVE VAGINAL PATHOGENS DNA [id number] 00:00:00 Test Item Value Reference Range Interpretation Comments ANDIE SPECIES (test code = 72820) NEGATIVE G. VAGINALIS (test code = 60527) POSITIVE T. VAGINALIS (test code = 17077) NEGATIVE VAGINAL PATHOGENS DNA [id number] 00:00:00 Test Item Value Reference Range Interpretation Comments ANDIE SPECIES (test code = 09910) NEGATIVE G. VAGINALIS (test code = 58879) POSITIVE T. VAGINALIS (test code = 60222) NEGATIVE VAGINAL PATHOGENS DNA [id number] 00:00:00 Test Item Value Reference Range Interpretation Comments ANDIE SPECIES (test code = 06563) NEGATIVE G. VAGINALIS (test code = 24511) POSITIVE T. VAGINALIS (test code = 92962) NEGATIVE VAGINAL PATHOGENS DNA [id number] 00:00:00 Test Item Value Reference Range Interpretation Comments ANDIE SPECIES (test code = 99292) NEGATIVE G. VAGINALIS (test code = 05374) POSITIVE T. VAGINALIS (test code = 80386) NEGATIVE VAGINAL PATHOGENS DNA [id number] 00:00:00 Test Item Value Reference Range Interpretation Comments ANDIE SPECIES (test code = 58127) NEGATIVE G. VAGINALIS (test code = 53605) POSITIVE T. VAGINALIS (test code = 79115) NEGATIVE VAGINAL PATHOGENS DNA [id number] 00:00:00 Test Item Value Reference Range Interpretation Comments ANDIE SPECIES (test code = 82724) NEGATIVE G. VAGINALIS (test code = 35520) POSITIVE T. VAGINALIS (test code = 19382) NEGATIVE VAGINAL PATHOGENS DNA [id number] 00:00:00 Test Item Value Reference Range Interpretation Comments ANDIE SPECIES (test code = 84900) NEGATIVE G. VAGINALIS (test code = 59350) POSITIVE T. VAGINALIS (test code = 42321) NEGATIVE VAGINAL PATHOGENS DNA [id number] 00:00:00 Test Item Value Reference Range Interpretation Comments ANDIE SPECIES (test code = 91236) NEGATIVE G. VAGINALIS (test code = 88431) POSITIVE T. VAGINALIS (test code = 79633) NEGATIVE VAGINAL PATHOGENS DNA [id number] 00:00:00 Test Item Value Reference Range Interpretation Comments ANDIE SPECIES (test code = 09341) NEGATIVE G. VAGINALIS (test code = 98095) POSITIVE T. VAGINALIS (test code = 95195) NEGATIVE VAGINAL PATHOGENS DNA [id number] 00:00:00 Test Item Value Reference Range Interpretation Comments ANDIE SPECIES (test code = ) NEGATIVE G. VAGINALIS (test code = 89595) POSITIVE T. VAGINALIS (test code = 72509) NEGATIVE VAGINAL PATHOGENS DNA [id number] 00:00:00 Test Item Value Reference Range Interpretation Comments ANDIE SPECIES (test code = 96234) NEGATIVE G. VAGINALIS (test code = 77416) POSITIVE T. VAGINALIS (test code = 10620) NEGATIVE VAGINAL PATHOGENS DNA [id number] 00:00:00 Test Item Value Reference Range Interpretation Comments ANDIE SPECIES (test code = 40577) NEGATIVE G. VAGINALIS (test code = 48835) POSITIVE T. VAGINALIS (test code = 33333) NEGATIVE VAGINAL PATHOGENS DNA [id number] 00:00:00 Test Item Value Reference Range Interpretation Comments ANDIE SPECIES (test code = 55810) NEGATIVE G. VAGINALIS (test code = 51262) POSITIVE T. VAGINALIS (test code = 00427) NEGATIVE VAGINAL PATHOGENS DNA [id number] 00:00:00 Test Item Value Reference Range Interpretation Comments ANDIE SPECIES (test code = 74027) NEGATIVE G. VAGINALIS (test code = 97379) POSITIVE T. VAGINALIS (test code = 44121) NEGATIVE VAGINAL PATHOGENS DNA [id number] 00:00:00 Test Item Value Reference Range Interpretation Comments ANDIE SPECIES (test code = 63962) NEGATIVE G. VAGINALIS (test code = 39975) POSITIVE T. VAGINALIS (test code = 43081) NEGATIVE VAGINAL PATHOGENS DNA [id number] 00:00:00 Test Item Value Reference Range Interpretation Comments ANDIE SPECIES (test code = 16644) NEGATIVE G. VAGINALIS (test code = 68779) POSITIVE T. VAGINALIS (test code = 52273) NEGATIVE BLOOD GROUP (ABO) AND RH [id number] 00:00:00 Test Item Value Reference Range Interpretation Comments BLOOD TYPE AND RH (test code = A POSITIVE 3901) BLOOD GROUP (ABO) AND RH [id number] 00:00:00 Test Item Value Reference Range Interpretation Comments BLOOD TYPE AND RH (test code = A POSITIVE 3901) BLOOD GROUP (ABO) AND RH [id number] 00:00:00 Test Item Value Reference Range Interpretation Comments BLOOD TYPE AND RH (test code = A POSITIVE 3901) HEMOGLOBIN [id number] 00:00:00 Test Item Value Reference Range Interpretation Comments HEMOGLOBIN A1c (test code = 37293) 11.8 % HEMOGLOBIN [id number] 00:00:00 Test Item Value Reference Range Interpretation Comments HEMOGLOBIN A1c (test code = 15368) 11.8 % HEMOGLOBIN [id number] 00:00:00 Test Item Value Reference Range Interpretation Comments HEMOGLOBIN A1c (test code = 52755) 11.8 % BLOOD GROUP (ABO) AND RH [id number] 00:00:00 Test Item Value Reference Range Interpretation Comments BLOOD TYPE AND RH (test code = A POSITIVE 3901) BLOOD GROUP (ABO) AND RH [id number] 00:00:00 Test Item Value Reference Range Interpretation Comments BLOOD TYPE AND RH (test code = A POSITIVE 3901) BLOOD GROUP (ABO) AND RH [id number] 00:00:00 Test Item Value Reference Range Interpretation Comments BLOOD TYPE AND RH (test code = A POSITIVE 3901) HEMOGLOBIN [id number] 00:00:00 Test Item Value Reference Range Interpretation Comments HEMOGLOBIN A1c (test code = 54407) 11.8 % HEMOGLOBIN [id number] 00:00:00 Test Item Value Reference Range Interpretation Comments HEMOGLOBIN A1c (test code = 29797) 11.8 % HEMOGLOBIN [id number] 00:00:00 Test Item Value Reference Range Interpretation Comments HEMOGLOBIN A1c (test code = 43132) 11.8 % BLOOD GROUP (ABO) AND RH [id number] 00:00:00 Test Item Value Reference Range Interpretation Comments BLOOD TYPE AND RH (test code = A POSITIVE 3901) BLOOD GROUP (ABO) AND RH [id number] 00:00:00 Test Item Value Reference Range Interpretation Comments BLOOD TYPE AND RH (test code = A POSITIVE 3901) BLOOD GROUP (ABO) AND RH [id number] 00:00:00 Test Item Value Reference Range Interpretation Comments BLOOD TYPE AND RH (test code = A POSITIVE 3901) HEMOGLOBIN [id number] 00:00:00 Test Item Value Reference Range Interpretation Comments HEMOGLOBIN A1c (test code = 31791) 11.8 % HEMOGLOBIN [id number] 00:00:00 Test Item Value Reference Range Interpretation Comments HEMOGLOBIN A1c (test code = 80375) 11.8 % HEMOGLOBIN [id number] 00:00:00 Test Item Value Reference Range Interpretation Comments HEMOGLOBIN A1c (test code = 36223) 11.8 % BLOOD GROUP (ABO) AND RH [id number] 00:00:00 Test Item Value Reference Range Interpretation Comments BLOOD TYPE AND RH (test code = A POSITIVE 3901) BLOOD GROUP (ABO) AND RH [id number] 00:00:00 Test Item Value Reference Range Interpretation Comments BLOOD TYPE AND RH (test code = A POSITIVE 3901) BLOOD GROUP (ABO) AND RH [id number] 00:00:00 Test Item Value Reference Range Interpretation Comments BLOOD TYPE AND RH (test code = A POSITIVE 3901) HEMOGLOBIN [id number] 00:00:00 Test Item Value Reference Range Interpretation Comments HEMOGLOBIN A1c (test code = 07645) 11.8 % HEMOGLOBIN [id number] 00:00:00 Test Item Value Reference Range Interpretation Comments HEMOGLOBIN A1c (test code = 38229) 11.8 % HEMOGLOBIN [id number] 00:00:00 Test Item Value Reference Range Interpretation Comments HEMOGLOBIN A1c (test code = 94067) 11.8 % BLOOD GROUP (ABO) AND RH [id number] 00:00:00 Test Item Value Reference Range Interpretation Comments BLOOD TYPE AND RH (test code = A POSITIVE 3901) BLOOD GROUP (ABO) AND RH [id number] 00:00:00 Test Item Value Reference Range Interpretation Comments BLOOD TYPE AND RH (test code = A POSITIVE 3901) BLOOD GROUP (ABO) AND RH [id number] 00:00:00 Test Item Value Reference Range Interpretation Comments BLOOD TYPE AND RH (test code = A POSITIVE 3901) HEMOGLOBIN [id number] 00:00:00 Test Item Value Reference Range Interpretation Comments HEMOGLOBIN A1c (test code = 42793) 11.8 % HEMOGLOBIN [id number] 00:00:00 Test Item Value Reference Range Interpretation Comments HEMOGLOBIN A1c (test code = 37224) 11.8 % HEMOGLOBIN [id number] 00:00:00 Test Item Value Reference Range Interpretation Comments HEMOGLOBIN A1c (test code = 65814) 11.8 % BLOOD GROUP (ABO) AND RH [id number] 00:00:00 Test Item Value Reference Range Interpretation Comments BLOOD TYPE AND RH (test code = A POSITIVE 3901) BLOOD GROUP (ABO) AND RH [id number] 00:00:00 Test Item Value Reference Range Interpretation Comments BLOOD TYPE AND RH (test code = A POSITIVE 3901) BLOOD GROUP (ABO) AND RH [id number] 00:00:00 Test Item Value Reference Range Interpretation Comments BLOOD TYPE AND RH (test code = A POSITIVE 3901) HEMOGLOBIN [id number] 00:00:00 Test Item Value Reference Range Interpretation Comments HEMOGLOBIN A1c (test code = 92615) 11.8 % HEMOGLOBIN [id number] 00:00:00 Test Item Value Reference Range Interpretation Comments HEMOGLOBIN A1c (test code = 68175) 11.8 % HEMOGLOBIN [id number] 00:00:00 Test Item Value Reference Range Interpretation Comments HEMOGLOBIN A1c (test code = 95949) 11.8 % BLOOD GROUP (ABO) AND RH [id number] 00:00:00 Test Item Value Reference Range Interpretation Comments BLOOD TYPE AND RH (test code = A POSITIVE 3901) BLOOD GROUP (ABO) AND RH [id number] 00:00:00 Test Item Value Reference Range Interpretation Comments BLOOD TYPE AND RH (test code = A POSITIVE 3901) BLOOD GROUP (ABO) AND RH [id number] 00:00:00 Test Item Value Reference Range Interpretation Comments BLOOD TYPE AND RH (test code = A POSITIVE 3901) HEMOGLOBIN [id number] 00:00:00 Test Item Value Reference Range Interpretation Comments HEMOGLOBIN A1c (test code = 74884) 11.8 % BLOOD GROUP (ABO) AND RH [id number] 00:00:00 Test Item Value Reference Range Interpretation Comments BLOOD TYPE AND RH (test code = A POSITIVE 3901) HEMOGLOBIN [id number] 00:00:00 Test Item Value Reference Range Interpretation Comments HEMOGLOBIN A1c (test code = 03199) 11.8 % HEMOGLOBIN [id number] 00:00:00 Test Item Value Reference Range Interpretation Comments HEMOGLOBIN A1c (test code = 11206) 11.8 % BLOOD GROUP (ABO) AND RH [id number] 00:00:00 Test Item Value Reference Range Interpretation Comments BLOOD TYPE AND RH (test code = A POSITIVE 3901) HEMOGLOBIN [id number] 00:00:00 Test Item Value Reference Range Interpretation Comments HEMOGLOBIN A1c (test code = 53470) 11.8 % HEMOGLOBIN [id number] 00:00:00 Test Item Value Reference Range Interpretation Comments HEMOGLOBIN A1c (test code = 33627) 11.8 % BLOOD GROUP (ABO) AND RH [id number] 00:00:00 Test Item Value Reference Range Interpretation Comments BLOOD TYPE AND RH (test code = A POSITIVE 3901) BLOOD GROUP (ABO) AND RH [id number] 00:00:00 Test Item Value Reference Range Interpretation Comments BLOOD TYPE AND RH (test code = A POSITIVE 3901) BLOOD GROUP (ABO) AND RH [id number] 00:00:00 Test Item Value Reference Range Interpretation Comments BLOOD TYPE AND RH (test code = A POSITIVE 3901) HEMOGLOBIN [id number] 00:00:00 Test Item Value Reference Range Interpretation Comments HEMOGLOBIN A1c (test code = 74398) 11.8 % HEMOGLOBIN [id number] 00:00:00 Test Item Value Reference Range Interpretation Comments HEMOGLOBIN A1c (test code = 13529) 11.8 % HEMOGLOBIN [id number] 00:00:00 Test Item Value Reference Range Interpretation Comments HEMOGLOBIN A1c (test code = 90910) 11.8 % BLOOD GROUP (ABO) AND RH [id number] 00:00:00 Test Item Value Reference Range Interpretation Comments BLOOD TYPE AND RH (test code = A POSITIVE 3901) BLOOD GROUP (ABO) AND RH [id number] 00:00:00 Test Item Value Reference Range Interpretation Comments BLOOD TYPE AND RH (test code = A POSITIVE 3901) BLOOD GROUP (ABO) AND RH [id number] 00:00:00 Test Item Value Reference Range Interpretation Comments BLOOD TYPE AND RH (test code = A POSITIVE 3901) HEMOGLOBIN [id number] 00:00:00 Test Item Value Reference Range Interpretation Comments HEMOGLOBIN A1c (test code = 59589) 11.8 % HEMOGLOBIN [id number] 00:00:00 Test Item Value Reference Range Interpretation Comments HEMOGLOBIN A1c (test code = 33791) 11.8 % HEMOGLOBIN [id number] 00:00:00 Test Item Value Reference Range Interpretation Comments HEMOGLOBIN A1c (test code = 87532) 11.8 % BLOOD GROUP (ABO) AND RH [id number] 00:00:00 Test Item Value Reference Range Interpretation Comments BLOOD TYPE AND RH (test code = A POSITIVE 3901) BLOOD GROUP (ABO) AND RH [id number] 00:00:00 Test Item Value Reference Range Interpretation Comments BLOOD TYPE AND RH (test code = A POSITIVE 3901) BLOOD GROUP (ABO) AND RH [id number] 00:00:00 Test Item Value Reference Range Interpretation Comments BLOOD TYPE AND RH (test code = A POSITIVE 3901) HEMOGLOBIN [id number] 00:00:00 Test Item Value Reference Range Interpretation Comments HEMOGLOBIN A1c (test code = 95657) 11.8 % HEMOGLOBIN [id number] 00:00:00 Test Item Value Reference Range Interpretation Comments HEMOGLOBIN A1c (test code = 93953) 11.8 % HEMOGLOBIN [id number] 00:00:00 Test Item Value Reference Range Interpretation Comments HEMOGLOBIN A1c (test code = 98742) 11.8 % COMPREHENSIVE METABOLIC [id number] 00:00:00 Test Item Value Reference Range Interpretation Comments GLUCOSE (test code = 2217) 277 MG/DL BUN (test code = 2208) 26 MG/DL CREATININE (test code = 2214) 1.04 MG/DL eGFR AMER. (test code 77 ML/MIN/1.73 = 96576) eGFR NON- AMER. (test 66 ML/MIN/1.73 code = 78218) CALC BUN/CREAT (test code = 25 RATIO [...] code = 2219) 51 U/L COMPREHENSIVE METABOLIC [id number] 00:00:00 Test Item Value Reference Range Interpretation Comments GLUCOSE (test code = 2217) 277 MG/DL BUN (test code = 2208) 26 MG/DL CREATININE (test code = 2214) 1.04 MG/DL eGFR AMER. (test code 77 ML/MIN/1.73 = 95284) eGFR NON- AMER. (test 66 ML/MIN/1.73 code = 80417) CALC BUN/CREAT (test code = 25 RATIO [...] (test code = 2219) 51 U/L CULTURE, [id number] 00:00:00 Test Item Value Reference Range Interpretation Comments CULTURE, URINE (test SPECIMEN NUMBER: code = 32667) [id number] CULTURE, [id number] 00:00:00 Test Item Value Reference Range Interpretation Comments CULTURE, URINE (test SPECIMEN NUMBER: code = 82175) [id number] COMPREHENSIVE METABOLIC [id number] 00:00:00 Test Item Value Reference Range Interpretation Comments GLUCOSE (test code = 2217) 277 MG/DL BUN (test code = 2208) 26 MG/DL CREATININE (test code = 2214) 1.04 MG/DL eGFR AMER. (test code 77 ML/MIN/1.73 = 16878) eGFR NON- AMER. (test 66 ML/MIN/1.73 code = 77626) CALC BUN/CREAT (test code = 25 RATIO [...] code = 2219) 51 U/L COMPREHENSIVE METABOLIC [id number] 00:00:00 Test Item Value Reference Range Interpretation Comments GLUCOSE (test code = 2217) 277 MG/DL BUN (test code = 2208) 26 MG/DL CREATININE (test code = 2214) 1.04 MG/DL eGFR AMER. (test code 77 ML/MIN/1.73 = 60620) eGFR NON- AMER. (test 66 ML/MIN/1.73 code = 95235) CALC BUN/CREAT (test code = 25 RATIO [...] (test code = 2219) 51 U/L CULTURE, [id number] 00:00:00 Test Item Value Reference Range Interpretation Comments CULTURE, URINE (test SPECIMEN NUMBER: code = 75052) [id number] CULTURE, [id number] 00:00:00 Test Item Value Reference Range Interpretation Comments CULTURE, URINE (test SPECIMEN NUMBER: code = 15361) [id number] COMPREHENSIVE METABOLIC [id number] 00:00:00 Test Item Value Reference Range Interpretation Comments GLUCOSE (test code = 2217) 277 MG/DL BUN (test code = 2208) 26 MG/DL CREATININE (test code = 2214) 1.04 MG/DL eGFR AMER. (test code 77 ML/MIN/1.73 = 22525) eGFR NON- AMER. (test 66 ML/MIN/1.73 code = 26332) CALC BUN/CREAT (test code = 25 RATIO [...] code = 2219) 51 U/L COMPREHENSIVE METABOLIC [id number] 00:00:00 Test Item Value Reference Range Interpretation Comments GLUCOSE (test code = 2217) 277 MG/DL BUN (test code = 2208) 26 MG/DL CREATININE (test code = 2214) 1.04 MG/DL eGFR AMER. (test code 77 ML/MIN/1.73 = 48563) eGFR NON- AMER. (test 66 ML/MIN/1.73 code = 50984) CALC BUN/CREAT (test code = 25 RATIO [...] (test code = 2219) 51 U/L CULTURE, [id number] 00:00:00 Test Item Value Reference Range Interpretation Comments CULTURE, URINE (test SPECIMEN NUMBER: code = 88352) [id number] CULTURE, [id number] 00:00:00 Test Item Value Reference Range Interpretation Comments CULTURE, URINE (test SPECIMEN NUMBER: code = 45032) [id number] COMPREHENSIVE METABOLIC [id number] 00:00:00 Test Item Value Reference Range Interpretation Comments GLUCOSE (test code = 2217) 277 MG/DL BUN (test code = 2208) 26 MG/DL CREATININE (test code = 2214) 1.04 MG/DL eGFR AMER. (test code 77 ML/MIN/1.73 = 61601) eGFR NON- AMER. (test 66 ML/MIN/1.73 code = 59350) CALC BUN/CREAT (test code = 25 RATIO [...] code = 2219) 51 U/L COMPREHENSIVE METABOLIC [id number] 00:00:00 Test Item Value Reference Range Interpretation Comments GLUCOSE (test code = 2217) 277 MG/DL BUN (test code = 2208) 26 MG/DL CREATININE (test code = 2214) 1.04 MG/DL eGFR AMER. (test code 77 ML/MIN/1.73 = 48107) eGFR NON- AMER. (test 66 ML/MIN/1.73 code = 31649) CALC BUN/CREAT (test code = 25 RATIO [...] (test code = 2219) 51 U/L CULTURE, [id number] 00:00:00 Test Item Value Reference Range Interpretation Comments CULTURE, URINE (test SPECIMEN NUMBER: code = 65961) [id number] CULTURE, [id number] 00:00:00 Test Item Value Reference Range Interpretation Comments CULTURE, URINE (test SPECIMEN NUMBER: code = 63179) [id number] COMPREHENSIVE METABOLIC [id number] 00:00:00 Test Item Value Reference Range Interpretation Comments GLUCOSE (test code = 2217) 277 MG/DL BUN (test code = 2208) 26 MG/DL CREATININE (test code = 2214) 1.04 MG/DL eGFR AMER. (test code 77 ML/MIN/1.73 = 57891) eGFR NON- AMER. (test 66 ML/MIN/1.73 code = 53457) CALC BUN/CREAT (test code = 25 RATIO [...] code = 2219) 51 U/L COMPREHENSIVE METABOLIC [id number] 00:00:00 Test Item Value Reference Range Interpretation Comments GLUCOSE (test code = 2217) 277 MG/DL BUN (test code = 2208) 26 MG/DL CREATININE (test code = 2214) 1.04 MG/DL eGFR AMER. (test code 77 ML/MIN/1.73 = 17805) eGFR NON- AMER. (test 66 ML/MIN/1.73 code = 56772) CALC BUN/CREAT (test code = 25 RATIO [...] (test code = 2219) 51 U/L CULTURE, [id number] 00:00:00 Test Item Value Reference Range Interpretation Comments CULTURE, URINE (test SPECIMEN NUMBER: code = 42793) [id number] CULTURE, [id number] 00:00:00 Test Item Value Reference Range Interpretation Comments CULTURE, URINE (test SPECIMEN NUMBER: code = 84279) [id number] COMPREHENSIVE METABOLIC [id number] 00:00:00 Test Item Value Reference Range Interpretation Comments GLUCOSE (test code = 2217) 277 MG/DL BUN (test code = 2208) 26 MG/DL CREATININE (test code = 2214) 1.04 MG/DL eGFR AMER. (test code 77 ML/MIN/1.73 = 94252) eGFR NON- AMER. (test 66 ML/MIN/1.73 code = 70063) CALC BUN/CREAT (test code = 25 RATIO [...] code = 2219) 51 U/L COMPREHENSIVE METABOLIC [id number] 00:00:00 Test Item Value Reference Range Interpretation Comments GLUCOSE (test code = 2217) 277 MG/DL BUN (test code = 2208) 26 MG/DL CREATININE (test code = 2214) 1.04 MG/DL eGFR AMER. (test code 77 ML/MIN/1.73 = 39791) eGFR NON- AMER. (test 66 ML/MIN/1.73 code = 52214) CALC BUN/CREAT (test code = 25 RATIO [...] (test code = 2219) 51 U/L CULTURE, [id number] 00:00:00 Test Item Value Reference Range Interpretation Comments CULTURE, URINE (test SPECIMEN NUMBER: code = 51837) [id number] CULTURE, [id number] 00:00:00 Test Item Value Reference Range Interpretation Comments CULTURE, URINE (test SPECIMEN NUMBER: code = 88990) [id number] COMPREHENSIVE METABOLIC [id number] 00:00:00 Test Item Value Reference Range Interpretation Comments GLUCOSE (test code = 2217) 277 MG/DL BUN (test code = 2208) 26 MG/DL CREATININE (test code = 2214) 1.04 MG/DL eGFR AMER. (test code 77 ML/MIN/1.73 = 56223) eGFR NON- AMER. (test 66 ML/MIN/1.73 code = 12106) CALC BUN/CREAT (test code = 25 RATIO [...] code = 2219) 51 U/L COMPREHENSIVE METABOLIC [id number] 00:00:00 Test Item Value Reference Range Interpretation Comments GLUCOSE (test code = 2217) 277 MG/DL BUN (test code = 2208) 26 MG/DL CREATININE (test code = 2214) 1.04 MG/DL eGFR AMER. (test code 77 ML/MIN/1.73 = 81660) eGFR NON- AMER. (test 66 ML/MIN/1.73 code = 95916) CALC BUN/CREAT (test code = 25 RATIO [...] (test code = 2219) 51 U/L CULTURE, [id number] 00:00:00 Test Item Value Reference Range Interpretation Comments CULTURE, URINE (test SPECIMEN NUMBER: code = 39704) [id number] CULTURE, [id number] 00:00:00 Test Item Value Reference Range Interpretation Comments CULTURE, URINE (test SPECIMEN NUMBER: code = 22023) [id number] COMPREHENSIVE METABOLIC [id number] 00:00:00 Test Item Value Reference Range Interpretation Comments GLUCOSE (test code = 2217) 277 MG/DL BUN (test code = 2208) 26 MG/DL CREATININE (test code = 2214) 1.04 MG/DL eGFR AMER. (test code 77 ML/MIN/1.73 = 99936) eGFR NON- AMER. (test 66 ML/MIN/1.73 code = 39304) CALC BUN/CREAT (test code = 25 RATIO [...] (test code = 2219) 51 U/L CULTURE, [id number] 00:00:00 Test Item Value Reference Range Interpretation Comments CULTURE, URINE (test SPECIMEN NUMBER: code = 92359) [id number] COMPREHENSIVE METABOLIC [id number] 00:00:00 Test Item Value Reference Range Interpretation Comments GLUCOSE (test code = 2217) 277 MG/DL BUN (test code = 2208) 26 MG/DL CREATININE (test code = 2214) 1.04 MG/DL eGFR AMER. (test code 77 ML/MIN/1.73 = 79399) eGFR NON- AMER. (test 66 ML/MIN/1.73 code = 46332) CALC BUN/CREAT (test code = 25 RATIO [...] code = 2219) 51 U/L COMPREHENSIVE METABOLIC [id number] 00:00:00 Test Item Value Reference Range Interpretation Comments GLUCOSE (test code = 2217) 277 MG/DL BUN (test code = 2208) 26 MG/DL CREATININE (test code = 2214) 1.04 MG/DL eGFR AMER. (test code 77 ML/MIN/1.73 = 79862) eGFR NON- AMER. (test 66 ML/MIN/1.73 code = 11525) CALC BUN/CREAT (test code = 25 RATIO [...] (test code = 2219) 51 U/L CULTURE, [id number] 00:00:00 Test Item Value Reference Range Interpretation Comments CULTURE, URINE (test SPECIMEN NUMBER: code = 14361) [id number] CULTURE, [id number] 00:00:00 Test Item Value Reference Range Interpretation Comments CULTURE, URINE (test SPECIMEN NUMBER: code = 52743) [id number] COMPREHENSIVE METABOLIC [id number] 00:00:00 Test Item Value Reference Range Interpretation Comments GLUCOSE (test code = 2217) 277 MG/DL BUN (test code = 2208) 26 MG/DL CREATININE (test code = 2214) 1.04 MG/DL eGFR AMER. (test code 77 ML/MIN/1.73 = 79694) eGFR NON- AMER. (test 66 ML/MIN/1.73 code = 94786) CALC BUN/CREAT (test code = 25 RATIO [...] code = 2219) 51 U/L COMPREHENSIVE METABOLIC [id number] 00:00:00 Test Item Value Reference Range Interpretation Comments GLUCOSE (test code = 2217) 277 MG/DL BUN (test code = 2208) 26 MG/DL CREATININE (test code = 2214) 1.04 MG/DL eGFR AMER. (test code 77 ML/MIN/1.73 = 51644) eGFR NON- AMER. (test 66 ML/MIN/1.73 code = 14263) CALC BUN/CREAT (test code = 25 RATIO [...] (test code = 2219) 51 U/L CULTURE, [id number] 00:00:00 Test Item Value Reference Range Interpretation Comments CULTURE, URINE (test SPECIMEN NUMBER: code = 74102) [id number] CULTURE, [id number] 00:00:00 Test Item Value Reference Range Interpretation Comments CULTURE, URINE (test SPECIMEN NUMBER: code = 80621) [id number] COMPREHENSIVE METABOLIC [id number] 00:00:00 Test Item Value Reference Range Interpretation Comments GLUCOSE (test code = 2217) 277 MG/DL BUN (test code = 2208) 26 MG/DL CREATININE (test code = 2214) 1.04 MG/DL eGFR AMER. (test code 77 ML/MIN/1.73 = 61593) eGFR NON- AMER. (test 66 ML/MIN/1.73 code = 06634) CALC BUN/CREAT (test code = 25 RATIO [...] code = 2219) 51 U/L COMPREHENSIVE METABOLIC [id number] 00:00:00 Test Item Value Reference Range Interpretation Comments GLUCOSE (test code = 2217) 277 MG/DL BUN (test code = 2208) 26 MG/DL CREATININE (test code = 2214) 1.04 MG/DL eGFR AMER. (test code 77 ML/MIN/1.73 = 66550) eGFR NON- AMER. (test 66 ML/MIN/1.73 code = 19331) CALC BUN/CREAT (test code = 25 RATIO [...] (test code = 2219) 51 U/L CULTURE, [id number] 00:00:00 Test Item Value Reference Range Interpretation Comments CULTURE, URINE (test SPECIMEN NUMBER: code = 11585) [id number] CULTURE, [id number] 00:00:00 Test Item Value Reference Range Interpretation Comments CULTURE, URINE (test SPECIMEN NUMBER: code = 48919) [id number] CBC W/AUTO [id number] 00:00:00 Test Item Value Reference Range Interpretation [...] NUCLEATED RBCS (test code = 0.00 K/UL 91312) CBC W/AUTO [id number] 00:00:00 Test Item Value Reference Range Interpretation [...] NUCLEATED RBCS (test code = 0.00 K/UL 80142) CBC W/AUTO [id number] 00:00:00 Test Item Value Reference Range Interpretation [...] NUCLEATED RBCS (test code = 0.00 K/UL 26675) CBC W/AUTO [id number] 00:00:00 Test Item Value Reference Range Interpretation [...] NUCLEATED RBCS (test code = 0.00 K/UL 08517) CBC W/AUTO [id number] 00:00:00 Test Item Value Reference Range Interpretation [...] NUCLEATED RBCS (test code = 0.00 K/UL 27750) CBC W/AUTO [id number] 00:00:00 Test Item Value Reference Range Interpretation [...] NUCLEATED RBCS (test code = 0.00 K/UL 64363) CBC W/AUTO [id number] 00:00:00 Test Item Value Reference Range Interpretation [...] NUCLEATED RBCS (test code = 0.00 K/UL 52113) CBC W/AUTO [id number] 00:00:00 Test Item Value Reference Range Interpretation [...] NUCLEATED RBCS (test code = 0.00 K/UL 91686) CBC W/AUTO [id number] 00:00:00 Test Item Value Reference Range Interpretation [...] NUCLEATED RBCS (test code = 0.00 K/UL 99048) CBC W/AUTO [id number] 00:00:00 Test Item Value Reference Range Interpretation [...] NUCLEATED RBCS (test code = 0.00 K/UL 78023) CBC W/AUTO [id number] 00:00:00 Test Item Value Reference Range Interpretation [...] NUCLEATED RBCS (test code = 0.00 K/UL 61909) CBC W/AUTO [id number] 00:00:00 Test Item Value Reference Range Interpretation [...] NUCLEATED RBCS (test code = 0.00 K/UL 71083) CBC W/AUTO [id number] 00:00:00 Test Item Value Reference Range Interpretation [...] NUCLEATED RBCS (test code = 0.00 K/UL 43064) CBC W/AUTO [id number] 00:00:00 Test Item Value Reference Range Interpretation [...] NUCLEATED RBCS (test code = 0.00 K/UL 64542) CBC W/AUTO [id number] 00:00:00 Test Item Value Reference Range Interpretation [...] NUCLEATED RBCS (test code = 0.00 K/UL 34501) CBC W/AUTO [id number] 00:00:00 Test Item Value Reference Range Interpretation [...] NUCLEATED RBCS (test code = 0.00 K/UL 73108) CBC W/AUTO [id number] 00:00:00 Test Item Value Reference Range Interpretation [...] NUCLEATED RBCS (test code = 0.00 K/UL 14106) CBC W/AUTO [id number] 00:00:00 Test Item Value Reference Range Interpretation [...] NUCLEATED RBCS (test code = 0.00 K/UL 54309) CBC W/AUTO [id number] 00:00:00 Test Item Value Reference Range Interpretation [...] NUCLEATED RBCS (test code = 0.00 K/UL 95657) CBC W/AUTO [id number] 00:00:00 Test Item Value Reference Range Interpretation [...] NUCLEATED RBCS (test code = 0.00 K/UL 30871) CBC W/AUTO [id number] 00:00:00 Test Item Value Reference Range Interpretation [...] NUCLEATED RBCS (test code = 0.00 K/UL 47117) CBC W/AUTO [id number] 00:00:00 Test Item Value Reference Range Interpretation [...] NUCLEATED RBCS (test code = 0.00 K/UL 59910) CBC W/AUTO [id number] 00:00:00 Test Item Value Reference Range Interpretation [...] NUCLEATED RBCS (test code = 0.00 K/UL 93275) CBC W/AUTO [id number] 00:00:00 Test Item Value Reference Range Interpretation [...] NUCLEATED RBCS (test code = 0.00 K/UL 81135) CBC W/AUTO [id number] 00:00:00 Test Item Value Reference Range Interpretation [...] NUCLEATED RBCS (test code = 0.00 K/UL 26157) CBC W/AUTO [id number] 00:00:00 Test Item Value Reference Range Interpretation [...] NUCLEATED RBCS (test code = 0.00 K/UL 39700) CBC W/AUTO [id number] 00:00:00 Test Item Value Reference Range Interpretation [...] NUCLEATED RBCS (test code = 0.00 K/UL 63781) CBC W/AUTO [id number] 00:00:00 Test Item Value Reference Range Interpretation [...] NUCLEATED RBCS (test code = 0.00 K/UL 70144) CBC W/AUTO [id number] 00:00:00 Test Item Value Reference Range Interpretation [...] NUCLEATED RBCS (test code = 0.00 K/UL 59067) CBC W/AUTO [id number] 00:00:00 Test Item Value Reference Range Interpretation [...] NUCLEATED RBCS (test code = 0.00 K/UL 85010) CBC W/AUTO [id number] 00:00:00 Test Item Value Reference Range Interpretation [...] NUCLEATED RBCS (test code = 0.00 K/UL 62064) CBC W/AUTO [id number] 00:00:00 Test Item Value Reference Range Interpretation [...] NUCLEATED RBCS (test code = 0.00 K/UL 78608) VAGINAL PATHOGENS DNA [id number] 00:00:00 Test Item Value Reference Range Interpretation Comments ANDIE SPECIES (test code = ) NEGATIVE G. VAGINALIS (test code = ) NEGATIVE T. VAGINALIS (test code = ) NEGATIVE VAGINAL PATHOGENS DNA [id number] 00:00:00 Test Item Value Reference Range Interpretation Comments ANDIE SPECIES (test code = 28123) NEGATIVE G. VAGINALIS (test code = 08082) NEGATIVE T. VAGINALIS (test code = 08377) NEGATIVE VAGINAL PATHOGENS DNA [id number] 00:00:00 Test Item Value Reference Range Interpretation Comments ANDIE SPECIES (test code = 71469) NEGATIVE G. VAGINALIS (test code = 17403) NEGATIVE T. VAGINALIS (test code = 07970) NEGATIVE VAGINAL PATHOGENS DNA [id number] 00:00:00 Test Item Value Reference Range Interpretation Comments ANDIE SPECIES (test code = 76152) NEGATIVE G. VAGINALIS (test code = 71500) NEGATIVE T. VAGINALIS (test code = 69021) NEGATIVE VAGINAL PATHOGENS DNA [id number] 00:00:00 Test Item Value Reference Range Interpretation Comments ANDIE SPECIES (test code = 65730) NEGATIVE G. VAGINALIS (test code = 34728) NEGATIVE T. VAGINALIS (test code = 74141) NEGATIVE VAGINAL PATHOGENS DNA [id number] 00:00:00 Test Item Value Reference Range Interpretation Comments ANDIE SPECIES (test code = 82615) NEGATIVE G. VAGINALIS (test code = 40726) NEGATIVE T. VAGINALIS (test code = 33859) NEGATIVE VAGINAL PATHOGENS DNA [id number] 00:00:00 Test Item Value Reference Range Interpretation Comments ANDIE SPECIES (test code = 93385) NEGATIVE G. VAGINALIS (test code = 89925) NEGATIVE T. VAGINALIS (test code = 79153) NEGATIVE VAGINAL PATHOGENS DNA [id number] 00:00:00 Test Item Value Reference Range Interpretation Comments ANDIE SPECIES (test code = 52998) NEGATIVE G. VAGINALIS (test code = 46296) NEGATIVE T. VAGINALIS (test code = 10017) NEGATIVE VAGINAL PATHOGENS DNA [id number] 00:00:00 Test Item Value Reference Range Interpretation Comments ANDIE SPECIES (test code = 73736) NEGATIVE G. VAGINALIS (test code = 95557) NEGATIVE T. VAGINALIS (test code = 28775) NEGATIVE VAGINAL PATHOGENS DNA [id number] 00:00:00 Test Item Value Reference Range Interpretation Comments ANDIE SPECIES (test code = 44017) NEGATIVE G. VAGINALIS (test code = 17326) NEGATIVE T. VAGINALIS (test code = ) NEGATIVE VAGINAL PATHOGENS DNA [id number] 00:00:00 Test Item Value Reference Range Interpretation Comments ANDIE SPECIES (test code = 63123) NEGATIVE G. VAGINALIS (test code = 55797) NEGATIVE T. VAGINALIS (test code = 44815) NEGATIVE VAGINAL PATHOGENS DNA [id number] 00:00:00 Test Item Value Reference Range Interpretation Comments ANDIE SPECIES (test code = 94239) NEGATIVE G. VAGINALIS (test code = 22734) NEGATIVE T. VAGINALIS (test code = 19420) NEGATIVE VAGINAL PATHOGENS DNA [id number] 00:00:00 Test Item Value Reference Range Interpretation Comments ANDIE SPECIES (test code = 92404) NEGATIVE G. VAGINALIS (test code = 36500) NEGATIVE T. VAGINALIS (test code = 80090) NEGATIVE VAGINAL PATHOGENS DNA [id number] 00:00:00 Test Item Value Reference Range Interpretation Comments ANDIE SPECIES (test code = 62152) NEGATIVE G. VAGINALIS (test code = 96621) NEGATIVE T. VAGINALIS (test code = 38556) NEGATIVE VAGINAL PATHOGENS DNA [id number] 00:00:00 Test Item Value Reference Range Interpretation Comments ANDIE SPECIES (test code = 26115) NEGATIVE G. VAGINALIS (test code = 43431) NEGATIVE T. VAGINALIS (test code = 22101) NEGATIVE VAGINAL PATHOGENS DNA [id number] 00:00:00 Test Item Value Reference Range Interpretation Comments ANDIE SPECIES (test code = 82194) NEGATIVE G. VAGINALIS (test code = 50033) NEGATIVE T. VAGINALIS (test code = 53341) NEGATIVE VAGINAL PATHOGENS DNA [id number] 00:00:00 Test Item Value Reference Range Interpretation Comments ANDIE SPECIES (test code = 12538) NEGATIVE G. VAGINALIS (test code = 41316) NEGATIVE T. VAGINALIS (test code = 81955) NEGATIVE VAGINAL PATHOGENS DNA [id number] 00:00:00 Test Item Value Reference Range Interpretation Comments ANDIE SPECIES (test code = 06607) NEGATIVE G. VAGINALIS (test code = 45801) NEGATIVE T. VAGINALIS (test code = 45117) NEGATIVE VAGINAL PATHOGENS DNA [id number] 00:00:00 Test Item Value Reference Range Interpretation Comments ANDIE SPECIES (test code = 73856) NEGATIVE G. VAGINALIS (test code = 13463) NEGATIVE T. VAGINALIS (test code = ) NEGATIVE VAGINAL PATHOGENS DNA [id number] 00:00:00 Test Item Value Reference Range Interpretation Comments ANDIE SPECIES (test code = ) NEGATIVE G. VAGINALIS (test code = 89823) NEGATIVE T. VAGINALIS (test code = 99487) NEGATIVE VAGINAL PATHOGENS DNA [id number] 00:00:00 Test Item Value Reference Range Interpretation Comments ANDIE SPECIES (test code = ) NEGATIVE G. VAGINALIS (test code = 88459) NEGATIVE T. VAGINALIS (test code = 45590) NEGATIVE HEMOGLOBIN [id number] 00:00:00 Test Item Value Reference Range Interpretation Comments HEMOGLOBIN A1c (test code = 97162) 11.4 % HEMOGLOBIN [id number] 00:00:00 Test Item Value Reference Range Interpretation Comments HEMOGLOBIN A1c (test code = 74575) 11.4 % HEMOGLOBIN [id number] 00:00:00 Test Item Value Reference Range Interpretation Comments HEMOGLOBIN A1c (test code = 13229) 11.4 % LIPID [id number] 00:00:00 Test Item Value Reference Range Interpretation Comments CHOLESTEROL (test code = 2210) 162 MG/DL TRIGLYCERIDES (test code = 2232) 387 MG/DL HDL CHOLESTEROL (test code = 2220) 30 MG/DL CALC LDL CHOL (test code = 2237) 80 MG/DL RISK RATIO LDL/HDL (test code = 2.67 RATIO 2238) LIPID [id number] 00:00:00 Test Item Value Reference Range Interpretation Comments CHOLESTEROL (test code = 2210) 162 MG/DL TRIGLYCERIDES (test code = 2232) 387 MG/DL HDL CHOLESTEROL (test code = 2220) 30 MG/DL CALC LDL CHOL (test code = 2237) 80 MG/DL RISK RATIO LDL/HDL (test code = 2.67 RATIO 2238) COMPREHENSIVE METABOLIC [id number] 00:00:00 Test Item Value Reference Range Interpretation Comments GLUCOSE (test code = 2217) 236 MG/DL BUN (test code = 2208) 14 MG/DL CREATININE (test code = 2214) 0.71 MG/DL eGFR AMER. (test code 122 ML/MIN/1.73 = 19479) eGFR NON- AMER. (test 105 ML/MIN/1.73 code = 63569) CALC BUN/CREAT (test code = 20 RATIO [...] code = 2219) 69 U/L COMPREHENSIVE METABOLIC [id number] 00:00:00 Test Item Value Reference Range Interpretation Comments GLUCOSE (test code = 2217) 236 MG/DL BUN (test code = 2208) 14 MG/DL CREATININE (test code = 2214) 0.71 MG/DL eGFR AMER. (test code 122 ML/MIN/1.73 = 13824) eGFR NON- AMER. (test 105 ML/MIN/1.73 code = 66705) CALC BUN/CREAT (test code = 20 RATIO [...] (test code = 2219) 69 U/L HEMOGLOBIN [id number] 00:00:00 Test Item Value Reference Range Interpretation Comments HEMOGLOBIN A1c (test code = 66169) 11.4 % HEMOGLOBIN [id number] 00:00:00 Test Item Value Reference Range Interpretation Comments HEMOGLOBIN A1c (test code = 91865) 11.4 % HEMOGLOBIN [id number] 00:00:00 Test Item Value Reference Range Interpretation Comments HEMOGLOBIN A1c (test code = 77477) 11.4 % LIPID [id number] 00:00:00 Test Item Value Reference Range Interpretation Comments CHOLESTEROL (test code = 2210) 162 MG/DL TRIGLYCERIDES (test code = 2232) 387 MG/DL HDL CHOLESTEROL (test code = 2220) 30 MG/DL CALC LDL CHOL (test code = 2237) 80 MG/DL RISK RATIO LDL/HDL (test code = 2.67 RATIO 2238) LIPID [id number] 00:00:00 Test Item Value Reference Range Interpretation Comments CHOLESTEROL (test code = 2210) 162 MG/DL TRIGLYCERIDES (test code = 2232) 387 MG/DL HDL CHOLESTEROL (test code = 2220) 30 MG/DL CALC LDL CHOL (test code = 2237) 80 MG/DL RISK RATIO LDL/HDL (test code = 2.67 RATIO 2238) COMPREHENSIVE METABOLIC [id number] 00:00:00 Test Item Value Reference Range Interpretation Comments GLUCOSE (test code = 2217) 236 MG/DL BUN (test code = 2208) 14 MG/DL CREATININE (test code = 2214) 0.71 MG/DL eGFR AMER. (test code 122 ML/MIN/1.73 = 43605) eGFR NON- AMER. (test 105 ML/MIN/1.73 code = 64879) CALC BUN/CREAT (test code = 20 RATIO [...] code = 2219) 69 U/L COMPREHENSIVE METABOLIC [id number] 00:00:00 Test Item Value Reference Range Interpretation Comments GLUCOSE (test code = 2217) 236 MG/DL BUN (test code = 2208) 14 MG/DL CREATININE (test code = 2214) 0.71 MG/DL eGFR AMER. (test code 122 ML/MIN/1.73 = 39703) eGFR NON- AMER. (test 105 ML/MIN/1.73 code = 12940) CALC BUN/CREAT (test code = 20 RATIO [...] (test code = 2219) 69 U/L HEMOGLOBIN [id number] 00:00:00 Test Item Value Reference Range Interpretation Comments HEMOGLOBIN A1c (test code = 48225) 11.4 % HEMOGLOBIN [id number] 00:00:00 Test Item Value Reference Range Interpretation Comments HEMOGLOBIN A1c (test code = 40660) 11.4 % HEMOGLOBIN [id number] 00:00:00 Test Item Value Reference Range Interpretation Comments HEMOGLOBIN A1c (test code = 51224) 11.4 % LIPID [id number] 00:00:00 Test Item Value Reference Range Interpretation Comments CHOLESTEROL (test code = 2210) 162 MG/DL TRIGLYCERIDES (test code = 2232) 387 MG/DL HDL CHOLESTEROL (test code = 2220) 30 MG/DL CALC LDL CHOL (test code = 2237) 80 MG/DL RISK RATIO LDL/HDL (test code = 2.67 RATIO 2238) LIPID [id number] 00:00:00 Test Item Value Reference Range Interpretation Comments CHOLESTEROL (test code = 2210) 162 MG/DL TRIGLYCERIDES (test code = 2232) 387 MG/DL HDL CHOLESTEROL (test code = 2220) 30 MG/DL CALC LDL CHOL (test code = 2237) 80 MG/DL RISK RATIO LDL/HDL (test code = 2.67 RATIO 2238) COMPREHENSIVE METABOLIC [id number] 00:00:00 Test Item Value Reference Range Interpretation Comments GLUCOSE (test code = 2217) 236 MG/DL BUN (test code = 2208) 14 MG/DL CREATININE (test code = 2214) 0.71 MG/DL eGFR AMER. (test code 122 ML/MIN/1.73 = 88208) eGFR NON- AMER. (test 105 ML/MIN/1.73 code = 21494) CALC BUN/CREAT (test code = 20 RATIO [...] code = 2219) 69 U/L COMPREHENSIVE METABOLIC [id number] 00:00:00 Test Item Value Reference Range Interpretation Comments GLUCOSE (test code = 2217) 236 MG/DL BUN (test code = 2208) 14 MG/DL CREATININE (test code = 2214) 0.71 MG/DL eGFR AMER. (test code 122 ML/MIN/1.73 = 88527) eGFR NON- AMER. (test 105 ML/MIN/1.73 code = 23925) CALC BUN/CREAT (test code = 20 RATIO [...] (test code = 2219) 69 U/L HEMOGLOBIN [id number] 00:00:00 Test Item Value Reference Range Interpretation Comments HEMOGLOBIN A1c (test code = 03662) 11.4 % HEMOGLOBIN [id number] 00:00:00 Test Item Value Reference Range Interpretation Comments HEMOGLOBIN A1c (test code = 31781) 11.4 % HEMOGLOBIN [id number] 00:00:00 Test Item Value Reference Range Interpretation Comments HEMOGLOBIN A1c (test code = 73616) 11.4 % LIPID [id number] 00:00:00 Test Item Value Reference Range Interpretation Comments CHOLESTEROL (test code = 2210) 162 MG/DL TRIGLYCERIDES (test code = 2232) 387 MG/DL HDL CHOLESTEROL (test code = 2220) 30 MG/DL CALC LDL CHOL (test code = 2237) 80 MG/DL RISK RATIO LDL/HDL (test code = 2.67 RATIO 2238) LIPID [id number] 00:00:00 Test Item Value Reference Range Interpretation Comments CHOLESTEROL (test code = 2210) 162 MG/DL TRIGLYCERIDES (test code = 2232) 387 MG/DL HDL CHOLESTEROL (test code = 2220) 30 MG/DL CALC LDL CHOL (test code = 2237) 80 MG/DL RISK RATIO LDL/HDL (test code = 2.67 RATIO 2238) COMPREHENSIVE METABOLIC [id number] 00:00:00 Test Item Value Reference Range Interpretation Comments GLUCOSE (test code = 2217) 236 MG/DL BUN (test code = 2208) 14 MG/DL CREATININE (test code = 2214) 0.71 MG/DL eGFR AMER. (test code 122 ML/MIN/1.73 = 98932) eGFR NON- AMER. (test 105 ML/MIN/1.73 code = 33855) CALC BUN/CREAT (test code = 20 RATIO [...] code = 2219) 69 U/L COMPREHENSIVE METABOLIC [id number] 00:00:00 Test Item Value Reference Range Interpretation Comments GLUCOSE (test code = 2217) 236 MG/DL BUN (test code = 2208) 14 MG/DL CREATININE (test code = 2214) 0.71 MG/DL eGFR AMER. (test code 122 ML/MIN/1.73 = 63435) eGFR NON- AMER. (test 105 ML/MIN/1.73 code = 03000) CALC BUN/CREAT (test code = 20 RATIO [...] (test code = 2219) 69 U/L HEMOGLOBIN [id number] 00:00:00 Test Item Value Reference Range Interpretation Comments HEMOGLOBIN A1c (test code = 22655) 11.4 % HEMOGLOBIN [id number] 00:00:00 Test Item Value Reference Range Interpretation Comments HEMOGLOBIN A1c (test code = 09407) 11.4 % HEMOGLOBIN [id number] 00:00:00 Test Item Value Reference Range Interpretation Comments HEMOGLOBIN A1c (test code = 03271) 11.4 % LIPID [id number] 00:00:00 Test Item Value Reference Range Interpretation Comments CHOLESTEROL (test code = 2210) 162 MG/DL TRIGLYCERIDES (test code = 2232) 387 MG/DL HDL CHOLESTEROL (test code = 2220) 30 MG/DL CALC LDL CHOL (test code = 2237) 80 MG/DL RISK RATIO LDL/HDL (test code = 2.67 RATIO 2238) LIPID [id number] 00:00:00 Test Item Value Reference Range Interpretation Comments CHOLESTEROL (test code = 2210) 162 MG/DL TRIGLYCERIDES (test code = 2232) 387 MG/DL HDL CHOLESTEROL (test code = 2220) 30 MG/DL CALC LDL CHOL (test code = 2237) 80 MG/DL RISK RATIO LDL/HDL (test code = 2.67 RATIO 2238) COMPREHENSIVE METABOLIC [id number] 00:00:00 Test Item Value Reference Range Interpretation Comments GLUCOSE (test code = 2217) 236 MG/DL BUN (test code = 2208) 14 MG/DL CREATININE (test code = 2214) 0.71 MG/DL eGFR AMER. (test code 122 ML/MIN/1.73 = 74068) eGFR NON- AMER. (test 105 ML/MIN/1.73 code = 15733) CALC BUN/CREAT (test code = 20 RATIO [...] code = 2219) 69 U/L COMPREHENSIVE METABOLIC [id number] 00:00:00 Test Item Value Reference Range Interpretation Comments GLUCOSE (test code = 2217) 236 MG/DL BUN (test code = 2208) 14 MG/DL CREATININE (test code = 2214) 0.71 MG/DL eGFR AMER. (test code 122 ML/MIN/1.73 = 33074) eGFR NON- AMER. (test 105 ML/MIN/1.73 code = 89644) CALC BUN/CREAT (test code = 20 RATIO [...] (test code = 2219) 69 U/L HEMOGLOBIN [id number] 00:00:00 Test Item Value Reference Range Interpretation Comments HEMOGLOBIN A1c (test code = 22837) 11.4 % HEMOGLOBIN [id number] 00:00:00 Test Item Value Reference Range Interpretation Comments HEMOGLOBIN A1c (test code = 58486) 11.4 % HEMOGLOBIN [id number] 00:00:00 Test Item Value Reference Range Interpretation Comments HEMOGLOBIN A1c (test code = 33664) 11.4 % LIPID [id number] 00:00:00 Test Item Value Reference Range Interpretation Comments CHOLESTEROL (test code = 2210) 162 MG/DL TRIGLYCERIDES (test code = 2232) 387 MG/DL HDL CHOLESTEROL (test code = 2220) 30 MG/DL CALC LDL CHOL (test code = 2237) 80 MG/DL RISK RATIO LDL/HDL (test code = 2.67 RATIO 2238) LIPID [id number] 00:00:00 Test Item Value Reference Range Interpretation Comments CHOLESTEROL (test code = 2210) 162 MG/DL TRIGLYCERIDES (test code = 2232) 387 MG/DL HDL CHOLESTEROL (test code = 2220) 30 MG/DL CALC LDL CHOL (test code = 2237) 80 MG/DL RISK RATIO LDL/HDL (test code = 2.67 RATIO 2238) COMPREHENSIVE METABOLIC [id number] 00:00:00 Test Item Value Reference Range Interpretation Comments GLUCOSE (test code = 2217) 236 MG/DL BUN (test code = 2208) 14 MG/DL CREATININE (test code = 2214) 0.71 MG/DL eGFR AMER. (test code 122 ML/MIN/1.73 = 97579) eGFR NON- AMER. (test 105 ML/MIN/1.73 code = 20343) CALC BUN/CREAT (test code = 20 RATIO [...] code = 2219) 69 U/L COMPREHENSIVE METABOLIC [id number] 00:00:00 Test Item Value Reference Range Interpretation Comments GLUCOSE (test code = 2217) 236 MG/DL BUN (test code = 2208) 14 MG/DL CREATININE (test code = 2214) 0.71 MG/DL eGFR AMER. (test code 122 ML/MIN/1.73 = 10308) eGFR NON- AMER. (test 105 ML/MIN/1.73 code = 40580) CALC BUN/CREAT (test code = 20 RATIO [...] (test code = 2219) 69 U/L HEMOGLOBIN [id number] 00:00:00 Test Item Value Reference Range Interpretation Comments HEMOGLOBIN A1c (test code = 47615) 11.4 % HEMOGLOBIN [id number] 00:00:00 Test Item Value Reference Range Interpretation Comments HEMOGLOBIN A1c (test code = 23113) 11.4 % HEMOGLOBIN [id number] 00:00:00 Test Item Value Reference Range Interpretation Comments HEMOGLOBIN A1c (test code = 76808) 11.4 % LIPID [id number] 00:00:00 Test Item Value Reference Range Interpretation Comments CHOLESTEROL (test code = 2210) 162 MG/DL TRIGLYCERIDES (test code = 2232) 387 MG/DL HDL CHOLESTEROL (test code = 2220) 30 MG/DL CALC LDL CHOL (test code = 2237) 80 MG/DL RISK RATIO LDL/HDL (test code = 2.67 RATIO 2238) LIPID [id number] 00:00:00 Test Item Value Reference Range Interpretation Comments CHOLESTEROL (test code = 2210) 162 MG/DL TRIGLYCERIDES (test code = 2232) 387 MG/DL HDL CHOLESTEROL (test code = 2220) 30 MG/DL CALC LDL CHOL (test code = 2237) 80 MG/DL RISK RATIO LDL/HDL (test code = 2.67 RATIO 2238) HEMOGLOBIN [id number] 00:00:00 Test Item Value Reference Range Interpretation Comments HEMOGLOBIN A1c (test code = 39593) 11.4 % COMPREHENSIVE METABOLIC [id number] 00:00:00 Test Item Value Reference Range Interpretation Comments GLUCOSE (test code = 2217) 236 MG/DL BUN (test code = 2208) 14 MG/DL CREATININE (test code = 2214) 0.71 MG/DL eGFR AMER. (test code 122 ML/MIN/1.73 = 54428) eGFR NON- AMER. (test 105 ML/MIN/1.73 code = 86035) CALC BUN/CREAT (test code = 20 RATIO [...] code = 2219) 69 U/L COMPREHENSIVE METABOLIC [id number] 00:00:00 Test Item Value Reference Range Interpretation Comments GLUCOSE (test code = 2217) 236 MG/DL BUN (test code = 2208) 14 MG/DL CREATININE (test code = 2214) 0.71 MG/DL eGFR AMER. (test code 122 ML/MIN/1.73 = 42628) eGFR NON- AMER. (test 105 ML/MIN/1.73 code = 83995) CALC BUN/CREAT (test code = 20 RATIO [...] (test code = 2219) 69 U/L HEMOGLOBIN [id number] 00:00:00 Test Item Value Reference Range Interpretation Comments HEMOGLOBIN A1c (test code = 83606) 11.4 % LIPID [id number] 00:00:00 Test Item Value Reference Range Interpretation Comments CHOLESTEROL (test code = 2210) 162 MG/DL TRIGLYCERIDES (test code = 2232) 387 MG/DL HDL CHOLESTEROL (test code = 2220) 30 MG/DL CALC LDL CHOL (test code = 2237) 80 MG/DL RISK RATIO LDL/HDL (test code = 2.67 RATIO 2238) COMPREHENSIVE METABOLIC [id number] 00:00:00 Test Item Value Reference Range Interpretation Comments GLUCOSE (test code = 2217) 236 MG/DL BUN (test code = 2208) 14 MG/DL CREATININE (test code = 2214) 0.71 MG/DL eGFR AMER. (test code 122 ML/MIN/1.73 = 46923) eGFR NON- AMER. (test 105 ML/MIN/1.73 code = 31359) CALC BUN/CREAT (test code = 20 RATIO [...] (test code = 2219) 69 U/L HEMOGLOBIN [id number] 00:00:00 Test Item Value Reference Range Interpretation Comments HEMOGLOBIN A1c (test code = 62070) 11.4 % HEMOGLOBIN [id number] 00:00:00 Test Item Value Reference Range Interpretation Comments HEMOGLOBIN A1c (test code = 50578) 11.4 % HEMOGLOBIN [id number] 00:00:00 Test Item Value Reference Range Interpretation Comments HEMOGLOBIN A1c (test code = 82738) 11.4 % LIPID [id number] 00:00:00 Test Item Value Reference Range Interpretation Comments CHOLESTEROL (test code = 2210) 162 MG/DL TRIGLYCERIDES (test code = 2232) 387 MG/DL HDL CHOLESTEROL (test code = 2220) 30 MG/DL CALC LDL CHOL (test code = 2237) 80 MG/DL RISK RATIO LDL/HDL (test code = 2.67 RATIO 2238) LIPID [id number] 00:00:00 Test Item Value Reference Range Interpretation Comments CHOLESTEROL (test code = 2210) 162 MG/DL TRIGLYCERIDES (test code = 2232) 387 MG/DL HDL CHOLESTEROL (test code = 2220) 30 MG/DL CALC LDL CHOL (test code = 2237) 80 MG/DL RISK RATIO LDL/HDL (test code = 2.67 RATIO 2238) COMPREHENSIVE METABOLIC [id number] 00:00:00 Test Item Value Reference Range Interpretation Comments GLUCOSE (test code = 2217) 236 MG/DL BUN (test code = 2208) 14 MG/DL CREATININE (test code = 2214) 0.71 MG/DL eGFR AMER. (test code 122 ML/MIN/1.73 = 95004) eGFR NON- AMER. (test 105 ML/MIN/1.73 code = 10811) CALC BUN/CREAT (test code = 20 RATIO [...] code = 2219) 69 U/L COMPREHENSIVE METABOLIC [id number] 00:00:00 Test Item Value Reference Range Interpretation Comments GLUCOSE (test code = 2217) 236 MG/DL BUN (test code = 2208) 14 MG/DL CREATININE (test code = 2214) 0.71 MG/DL eGFR AMER. (test code 122 ML/MIN/1.73 = 54638) eGFR NON- AMER. (test 105 ML/MIN/1.73 code = 06746) CALC BUN/CREAT (test code = 20 RATIO [...] (test code = 2219) 69 U/L HEMOGLOBIN [id number] 00:00:00 Test Item Value Reference Range Interpretation Comments HEMOGLOBIN A1c (test code = 53041) 11.4 % HEMOGLOBIN [id number] 00:00:00 Test Item Value Reference Range Interpretation Comments HEMOGLOBIN A1c (test code = 61325) 11.4 % HEMOGLOBIN [id number] 00:00:00 Test Item Value Reference Range Interpretation Comments HEMOGLOBIN A1c (test code = 29720) 11.4 % LIPID [id number] 00:00:00 Test Item Value Reference Range Interpretation Comments CHOLESTEROL (test code = 2210) 162 MG/DL TRIGLYCERIDES (test code = 2232) 387 MG/DL HDL CHOLESTEROL (test code = 2220) 30 MG/DL CALC LDL CHOL (test code = 2237) 80 MG/DL RISK RATIO LDL/HDL (test code = 2.67 RATIO 2238) LIPID [id number] 00:00:00 Test Item Value Reference Range Interpretation Comments CHOLESTEROL (test code = 2210) 162 MG/DL TRIGLYCERIDES (test code = 2232) 387 MG/DL HDL CHOLESTEROL (test code = 2220) 30 MG/DL CALC LDL CHOL (test code = 2237) 80 MG/DL RISK RATIO LDL/HDL (test code = 2.67 RATIO 2238) COMPREHENSIVE METABOLIC [id number] 00:00:00 Test Item Value Reference Range Interpretation Comments GLUCOSE (test code = 2217) 236 MG/DL BUN (test code = 2208) 14 MG/DL CREATININE (test code = 2214) 0.71 MG/DL eGFR AMER. (test code 122 ML/MIN/1.73 = 25433) eGFR NON- AMER. (test 105 ML/MIN/1.73 code = 46872) CALC BUN/CREAT (test code = 20 RATIO [...] code = 2219) 69 U/L COMPREHENSIVE METABOLIC [id number] 00:00:00 Test Item Value Reference Range Interpretation Comments GLUCOSE (test code = 2217) 236 MG/DL BUN (test code = 2208) 14 MG/DL CREATININE (test code = 2214) 0.71 MG/DL eGFR AMER. (test code 122 ML/MIN/1.73 = 20361) eGFR NON- AMER. (test 105 ML/MIN/1.73 code = 13568) CALC BUN/CREAT (test code = 20 RATIO [...] (test code = 2219) 69 U/L HEMOGLOBIN [id number] 00:00:00 Test Item Value Reference Range Interpretation Comments HEMOGLOBIN A1c (test code = 59577) 11.4 % HEMOGLOBIN [id number] 00:00:00 Test Item Value Reference Range Interpretation Comments HEMOGLOBIN A1c (test code = 54661) 11.4 % HEMOGLOBIN [id number] 00:00:00 Test Item Value Reference Range Interpretation Comments HEMOGLOBIN A1c (test code = 74977) 11.4 % LIPID [id number] 00:00:00 Test Item Value Reference Range Interpretation Comments CHOLESTEROL (test code = 2210) 162 MG/DL TRIGLYCERIDES (test code = 2232) 387 MG/DL HDL CHOLESTEROL (test code = 2220) 30 MG/DL CALC LDL CHOL (test code = 2237) 80 MG/DL RISK RATIO LDL/HDL (test code = 2.67 RATIO 2238) LIPID [id number] 00:00:00 Test Item Value Reference Range Interpretation Comments CHOLESTEROL (test code = 2210) 162 MG/DL TRIGLYCERIDES (test code = 2232) 387 MG/DL HDL CHOLESTEROL (test code = 2220) 30 MG/DL CALC LDL CHOL (test code = 2237) 80 MG/DL RISK RATIO LDL/HDL (test code = 2.67 RATIO 2238) COMPREHENSIVE METABOLIC [id number] 00:00:00 Test Item Value Reference Range Interpretation Comments GLUCOSE (test code = 2217) 236 MG/DL BUN (test code = 2208) 14 MG/DL CREATININE (test code = 2214) 0.71 MG/DL eGFR AMER. (test code 122 ML/MIN/1.73 = 47194) eGFR NON- AMER. (test 105 ML/MIN/1.73 code = 54272) CALC BUN/CREAT (test code = 20 RATIO [...] code = 2219) 69 U/L COMPREHENSIVE METABOLIC [id number] 00:00:00 Test Item Value Reference Range Interpretation Comments GLUCOSE (test code = 2217) 236 MG/DL BUN (test code = 2208) 14 MG/DL CREATININE (test code = 2214) 0.71 MG/DL eGFR AMER. (test code 122 ML/MIN/1.73 = 89308) eGFR NON- AMER. (test 105 ML/MIN/1.73 code = 88536) CALC BUN/CREAT (test code = 20 RATIO [...] U/L - CT UP EXTREM W/O CONT [id number] 08:37:00 [facility] 1980 Sex: F PatientName: MARGE FRANCO Unit No: [id number] EXAMS: CPT CODE: [id number] [place] EXTREM W/[place] [address] [place] SCAN LEFT WRIST WITH RECONSTRUCTION DIAGNOSIS: [...] with ACR practice standards and adherence to rat exterminator's recommendations. INDICATION: LEFT WRIST SPRAIN, POSSIBLE SCAPHOID FRACTURE COMPARISON: None. COMMENT: Findings are as described above. at 0837 Reported and signed by: America Schuler MD CC: Bebeto Quiroga MD Technologist: KAVEH WYMAN CTDI: DLP: Trnscrpt: 08/11/2020 (0837) Noel[facility] NAME: BENNY FRANCONNE [address] [place] [address] PHYS: Bebeto Valiente MD : 1980 AGE: 40 SEX: [place] [address] LOC: Y.RAD PHONE #: [phone] EXAM DATE: 08/08/2020 STATUS: DEP CLI FAX #: [phone] RAD #: D/C DT PAGE 1 Signed Report Patient Name: MARGE FRANCO Unit No: [id number] EXAMS: CPT CODE: [id number] CT UP EXTREM W/[place] [address] (Continued) Orig Print D/T: S: 08/11/2020 (0840) [facility] NAME: FRANCOIsaacMARGE[address] PHYS: Bebeto Valiente MD : 1980 AGE: 40 SEX: F [place] [address] LOC: Y.RAD PHONE #: [phone] EXAM DATE: 08/08/2020 STATUS: DEP CLI FAX #: [phone] RAD #: D/C DT PAGE2 Signed ReportCULTURE, [id number] 00:00:00 Test Item Value Reference Range Interpretation Comments CULTURE, URINE (test SPECIMEN NUMBER: code = 43783) [id number] CULTURE, [id number] 00:00:00 Test Item Value Reference Range Interpretation Comments CULTURE, URINE (test SPECIMEN NUMBER: code = 52310) [id number] CULTURE, [id number] 00:00:00 Test Item Value Reference Range Interpretation Comments CULTURE, URINE (test SPECIMEN NUMBER: code = 43752) [id number] CULTURE, [id number] 00:00:00 Test Item Value Reference Range Interpretation Comments CULTURE, URINE (test SPECIMEN NUMBER: code = 78977) [id number] CULTURE, [id number] 00:00:00 Test Item Value Reference Range Interpretation Comments CULTURE, URINE (test SPECIMEN NUMBER: code = 55325) [id number] CULTURE, [id number] 00:00:00 Test Item Value Reference Range Interpretation Comments CULTURE, URINE (test SPECIMEN NUMBER: code = 66709) [id number] CULTURE, [id number] 00:00:00 Test Item Value Reference Range Interpretation Comments CULTURE, URINE (test SPECIMEN NUMBER: code = 89220) [id number] CULTURE, [id number] 00:00:00 Test Item Value Reference Range Interpretation Comments CULTURE, URINE (test SPECIMEN NUMBER: code = 83302) [id number] CULTURE, [id number] 00:00:00 Test Item Value Reference Range Interpretation Comments CULTURE, URINE (test SPECIMEN NUMBER: code = 24197) [id number] CULTURE, [id number] 00:00:00 Test Item Value Reference Range Interpretation Comments CULTURE, URINE (test SPECIMEN NUMBER: code = 61261) [id number] CULTURE, [id number] 00:00:00 Test Item Value Reference Range Interpretation Comments CULTURE, URINE (test SPECIMEN NUMBER: code = 61241) [id number] CULTURE, [id number] 00:00:00 Test Item Value Reference Range Interpretation Comments CULTURE, URINE (test SPECIMEN NUMBER: code = 83620) [id number] CULTURE, [id number] 00:00:00 Test Item Value Reference Range Interpretation Comments CULTURE, URINE (test SPECIMEN NUMBER: code = 32376) [id number] CULTURE, [id number] 00:00:00 Test Item Value Reference Range Interpretation Comments CULTURE, URINE (test SPECIMEN NUMBER: code = 87961) [id number] CULTURE, [id number] 00:00:00 Test Item Value Reference Range Interpretation Comments CULTURE, URINE (test SPECIMEN NUMBER: code = 24319) [id number] CULTURE, [id number] 00:00:00 Test Item Value Reference Range Interpretation Comments CULTURE, URINE (test SPECIMEN NUMBER: code = 54971) [id number] CULTURE, [id number] 00:00:00 Test Item Value Reference Range Interpretation Comments CULTURE, URINE (test SPECIMEN NUMBER: code = 15759) [id number] CULTURE, [id number] 00:00:00 Test Item Value Reference Range Interpretation Comments CULTURE, URINE (test SPECIMEN NUMBER: code = 16114) [id number] CULTURE, [id number] 00:00:00 Test Item Value Reference Range Interpretation Comments CULTURE, URINE (test SPECIMEN NUMBER: code = 09241) [id number] CULTURE, [id number] 00:00:00 Test Item Value Reference Range Interpretation Comments CULTURE, URINE (test SPECIMEN NUMBER: code = 16639) [id number] CULTURE, [id number] 00:00:00 Test Item Value Reference Range Interpretation Comments CULTURE, URINE (test SPECIMEN NUMBER: code = 35887) [id number] VAGINAL PATHOGENS DNA [id number] 00:00:00 Test Item Value Reference Range Interpretation Comments ANDIE SPECIES (test code = 82534) NEGATIVE G. VAGINALIS (test code = 71490) NEGATIVE T. VAGINALIS (test code = 63022) NEGATIVE VAGINAL PATHOGENS DNA [id number] 00:00:00 Test Item Value Reference Range Interpretation Comments ANDIE SPECIES (test code = 93222) NEGATIVE G. VAGINALIS (test code = 66005) NEGATIVE T. VAGINALIS (test code = 22602) NEGATIVE VAGINAL PATHOGENS DNA [id number] 00:00:00 Test Item Value Reference Range Interpretation Comments ANDIE SPECIES (test code = 84493) NEGATIVE G. VAGINALIS (test code = 82711) NEGATIVE T. VAGINALIS (test code = 49766) NEGATIVE VAGINAL PATHOGENS DNA [id number] 00:00:00 Test Item Value Reference Range Interpretation Comments ANDIE SPECIES (test code = 88992) NEGATIVE G. VAGINALIS (test code = 59625) NEGATIVE T. VAGINALIS (test code = 17905) NEGATIVE VAGINAL PATHOGENS DNA [id number] 00:00:00 Test Item Value Reference Range Interpretation Comments ANDIE SPECIES (test code = 31639) NEGATIVE G. VAGINALIS (test code = 34270) NEGATIVE T. VAGINALIS (test code = 74211) NEGATIVE VAGINAL PATHOGENS DNA [id number] 00:00:00 Test Item Value Reference Range Interpretation Comments ANDIE SPECIES (test code = 80544) NEGATIVE G. VAGINALIS (test code = 30265) NEGATIVE T. VAGINALIS (test code = 50500) NEGATIVE VAGINAL PATHOGENS DNA [id number] 00:00:00 Test Item Value Reference Range Interpretation Comments ANDIE SPECIES (test code = 91694) NEGATIVE G. VAGINALIS (test code = 51045) NEGATIVE T. VAGINALIS (test code = 08311) NEGATIVE VAGINAL PATHOGENS DNA [id number] 00:00:00 Test Item Value Reference Range Interpretation Comments ANDIE SPECIES (test code = 21826) NEGATIVE G. VAGINALIS (test code = 32996) NEGATIVE T. VAGINALIS (test code = 65493) NEGATIVE VAGINAL PATHOGENS DNA [id number] 00:00:00 Test Item Value Reference Range Interpretation Comments ANDIE SPECIES (test code = 15619) NEGATIVE G. VAGINALIS (test code = 63998) NEGATIVE T. VAGINALIS (test code = 00301) NEGATIVE VAGINAL PATHOGENS DNA [id number] 00:00:00 Test Item Value Reference Range Interpretation Comments ANDIE SPECIES (test code = ) NEGATIVE G. VAGINALIS (test code = 55882) NEGATIVE T. VAGINALIS (test code = 64662) NEGATIVE VAGINAL PATHOGENS DNA [id number] 00:00:00 Test Item Value Reference Range Interpretation Comments ANDIE SPECIES (test code = ) NEGATIVE G. VAGINALIS (test code = 45641) NEGATIVE T. VAGINALIS (test code = 94419) NEGATIVE VAGINAL PATHOGENS DNA [id number] 00:00:00 Test Item Value Reference Range Interpretation Comments ANDIE SPECIES (test code = 59211) NEGATIVE G. VAGINALIS (test code = 40407) NEGATIVE T. VAGINALIS (test code = 45615) NEGATIVE VAGINAL PATHOGENS DNA [id number] 00:00:00 Test Item Value Reference Range Interpretation Comments ANDIE SPECIES (test code = 51694) NEGATIVE G. VAGINALIS (test code = 17222) NEGATIVE T. VAGINALIS (test code = 91388) NEGATIVE VAGINAL PATHOGENS DNA [id number] 00:00:00 Test Item Value Reference Range Interpretation Comments ANDIE SPECIES (test code = 94919) NEGATIVE G. VAGINALIS (test code = 65773) NEGATIVE T. VAGINALIS (test code = 64449) NEGATIVE VAGINAL PATHOGENS DNA [id number] 00:00:00 Test Item Value Reference Range Interpretation Comments ANDIE SPECIES (test code = ) NEGATIVE G. VAGINALIS (test code = 98564) NEGATIVE T. VAGINALIS (test code = 46895) NEGATIVE VAGINAL PATHOGENS DNA [id number] 00:00:00 Test Item Value Reference Range Interpretation Comments ANDIE SPECIES (test code = 31479) NEGATIVE G. VAGINALIS (test code = 81985) NEGATIVE T. VAGINALIS (test code = 92611) NEGATIVE VAGINAL PATHOGENS DNA [id number] 00:00:00 Test Item Value Reference Range Interpretation Comments ANDIE SPECIES (test code = 17407) NEGATIVE G. VAGINALIS (test code = 83830) NEGATIVE T. VAGINALIS (test code = 77131) NEGATIVE VAGINAL PATHOGENS DNA [id number] 00:00:00 Test Item Value Reference Range Interpretation Comments ANDIE SPECIES (test code = 81511) NEGATIVE G. VAGINALIS (test code = 59053) NEGATIVE T. VAGINALIS (test code = 98517) NEGATIVE VAGINAL PATHOGENS DNA [id number] 00:00:00 Test Item Value Reference Range Interpretation Comments ANDIE SPECIES (test code = 02242) NEGATIVE G. VAGINALIS (test code = 72018) NEGATIVE T. VAGINALIS (test code = 80556) NEGATIVE VAGINAL PATHOGENS DNA [id number] 00:00:00 Test Item Value Reference Range Interpretation Comments ANDIE SPECIES (test code = 01353) NEGATIVE G. VAGINALIS (test code = 77956) NEGATIVE T. VAGINALIS (test code = 23904) NEGATIVE VAGINAL PATHOGENS DNA [id number] 00:00:00 Test Item Value Reference Range Interpretation Comments ANDIE SPECIES (test code = ) NEGATIVE G. VAGINALIS (test code = 45286) NEGATIVE T. VAGINALIS (test code = 06722) NEGATIVE - XR FOREARM 2 VIEWS [id number] 09:10:00 [facility] 1980 Sex: F PatientName: MARGE FRANCO Unit No: [id number] EXAMS: CPT CODE: [id number] XR FORE[place] [address] [place] [address] Leftforearm and wrist 4 views COMMENT: There is no evidence for fracture or subluxation. No focal bony lesions are seen. at 0910 Reported and signed by: Prasad Marina MD CC: Rafy Ferguson MD Technologist: Marie Johnson(R) Transcribed D/ (909) Renee [facility] NAME: MARGE FRANCO [address] [place] [address] PHYS: HAMST. Rafy Ferguson Ks : 1980 AGE: 40 SEX: F [place], [place] LOC: TEOFILO PHONE #: [phone] EXAM DATE: 08/02/2020 STATUS: DEP ER FAX #: [phone] RAD #: D/C DT PAGE 1 Signed Report Patient Name: MARGE FRANCO Unit No: [id number]: CPT CODE: [id number] XR FOREARM [address] [place] [address] (Continued) Orig Print D/T: S: 08/04/2020 (09) [facility] NAME: MARGE FRANCO [address] [place] [address] [facility]YS: [facility]ell[facility] : 1980 AGE: 40 SEX: F [place], [place] [address] LOC: TEOFILO PHONE #: [phone] EXAM DATE: 08/02/2020 STATUS: DEP ER FAX #: [phone] RAD #: D/C DT PAGE 2 Signed ReportCULTURE, [id number] 00:00:00 Test Item Value Reference Range Interpretation Comments CULTURE, URINE (test SPECIMEN NUMBER: code = 70694) [id number] CULTURE, [id number] 00:00:00 Test Item Value Reference Range Interpretation Comments CULTURE, URINE (test SPECIMEN NUMBER: code = 58938) [id number] CULTURE, [id number] 00:00:00 Test Item Value Reference Range Interpretation Comments CULTURE, URINE (test SPECIMEN NUMBER: code = 07004) [id number] CULTURE, [id number] 00:00:00 Test Item Value Reference Range Interpretation Comments CULTURE, URINE (test SPECIMEN NUMBER: code = 75253) [id number] CULTURE, [id number] 00:00:00 Test Item Value Reference Range Interpretation Comments CULTURE, URINE (test SPECIMEN NUMBER: code = 20618) [id number] CULTURE, [id number] 00:00:00 Test Item Value Reference Range Interpretation Comments CULTURE, URINE (test SPECIMEN NUMBER: code = 90653) [id number] CULTURE, [id number] 00:00:00 Test Item Value Reference Range Interpretation Comments CULTURE, URINE (test SPECIMEN NUMBER: code = 54599) [id number] CULTURE, [id number] 00:00:00 Test Item Value Reference Range Interpretation Comments CULTURE, URINE (test SPECIMEN NUMBER: code = 42544) [id number] CULTURE, [id number] 00:00:00 Test Item Value Reference Range Interpretation Comments CULTURE, URINE (test SPECIMEN NUMBER: code = 50418) [id number] CULTURE, [id number] 00:00:00 Test Item Value Reference Range Interpretation Comments CULTURE, URINE (test SPECIMEN NUMBER: code = 61362) [id number] CULTURE, [id number] 00:00:00 Test Item Value Reference Range Interpretation Comments CULTURE, URINE (test SPECIMEN NUMBER: code = 75912) [id number] CULTURE, [id number] 00:00:00 Test Item Value Reference Range Interpretation Comments CULTURE, URINE (test SPECIMEN NUMBER: code = 20495) [id number] CULTURE, [id number] 00:00:00 Test Item Value Reference Range Interpretation Comments CULTURE, URINE (test SPECIMEN NUMBER: code = 10748) [id number] CULTURE, [id number] 00:00:00 Test Item Value Reference Range Interpretation Comments CULTURE, URINE (test SPECIMEN NUMBER: code = 87447) [id number] CULTURE, [id number] 00:00:00 Test Item Value Reference Range Interpretation Comments CULTURE, URINE (test SPECIMEN NUMBER: code = 25050) [id number] CULTURE, [id number] 00:00:00 Test Item Value Reference Range Interpretation Comments CULTURE, URINE (test SPECIMEN NUMBER: code = 77608) [id number] CULTURE, [id number] 00:00:00 Test Item Value Reference Range Interpretation Comments CULTURE, URINE (test SPECIMEN NUMBER: code = 15713) [id number] CULTURE, [id number] 00:00:00 Test Item Value Reference Range Interpretation Comments CULTURE, URINE (test SPECIMEN NUMBER: code = 75899) [id number] CULTURE, [id number] 00:00:00 Test Item Value Reference Range Interpretation Comments CULTURE, URINE (test SPECIMEN NUMBER: code = 17426) [id number] CULTURE, [id number] 00:00:00 Test Item Value Reference Range Interpretation Comments CULTURE, URINE (test SPECIMEN NUMBER: code = 64229) [id number] CULTURE, [id number] 00:00:00 Test Item Value Reference Range Interpretation Comments CULTURE, URINE (test SPECIMEN NUMBER: code = 74736) [id number] SARS-CoV-2 (COVID-19) by RT-PCR (HIGH RISK)2020-04-23 00:00:00 Test Item Value Reference Range Interpretation Comments SARS-CoV-2 INTERPRETATION Negative (test code = 49088) SOURCE (test code = 79519) Nasal_Swab_in_VTM__ UTM SARS-CoV-2 (COVID-19) by RT-PCR (HIGH RISK)2020-04-23 00:00:00 Test Item Value Reference Range Interpretation Comments SARS-CoV-2 INTERPRETATION Negative (test code = 59644) SOURCE (test code = 71515) Nasal_Swab_in_VTM__ UTM SARS-CoV-2 (COVID-19) by RT-PCR (HIGH RISK)2020-04-23 00:00:00 Test Item Value Reference Range Interpretation Comments SARS-CoV-2 INTERPRETATION Negative (test code = 55900) SOURCE (test code = 41014) Nasal_Swab_in_VTM__ UTM SARS-CoV-2 (COVID-19) by RT-PCR (HIGH RISK)2020-04-23 00:00:00 Test Item Value Reference Range Interpretation Comments SARS-CoV-2 INTERPRETATION Negative (test code = 76059) SOURCE (test code = 37985) Nasal_Swab_in_VTM__ UTM SARS-CoV-2 (COVID-19) by RT-PCR (HIGH RISK)2020-04-23 00:00:00 Test Item Value Reference Range Interpretation Comments SARS-CoV-2 INTERPRETATION Negative (test code = 80288) SOURCE (test code = 41846) Nasal_Swab_in_VTM__ UTM SARS-CoV-2 (COVID-19) by RT-PCR (HIGH RISK)2020-04-23 00:00:00 Test Item Value Reference Range Interpretation Comments SARS-CoV-2 INTERPRETATION Negative (test code = 95331) SOURCE (test code = 93211) Nasal_Swab_in_VTM__ UTM SARS-CoV-2 (COVID-19) by RT-PCR (HIGH RISK)2020-04-23 00:00:00 Test Item Value Reference Range Interpretation Comments SARS-CoV-2 INTERPRETATION Negative (test code = 59913) SOURCE (test code = 83124) Nasal_Swab_in_VTM__ UTM SARS-CoV-2 (COVID-19) by RT-PCR (HIGH RISK)2020-04-23 00:00:00 Test Item Value Reference Range Interpretation Comments SARS-CoV-2 INTERPRETATION Negative (test code = 70239) SOURCE (test code = 74872) Nasal_Swab_in_VTM__ UTM SARS-CoV-2 (COVID-19) by RT-PCR (HIGH RISK)2020-04-23 00:00:00 Test Item Value Reference Range Interpretation Comments SARS-CoV-2 INTERPRETATION Negative (test code = 57110) SOURCE (test code = 81986) Nasal_Swab_in_VTM__ UTM SARS-CoV-2 (COVID-19) by RT-PCR (HIGH RISK)2020-04-23 00:00:00 Test Item Value Reference Range Interpretation Comments SARS-CoV-2 INTERPRETATION Negative (test code = 35797) SOURCE (test code = 23109) Nasal_Swab_in_VTM__ UTM SARS-CoV-2 (COVID-19) by RT-PCR (HIGH RISK)2020-04-23 00:00:00 Test Item Value Reference Range Interpretation Comments SARS-CoV-2 INTERPRETATION Negative (test code = 24599) SOURCE (test code = 17392) Nasal_Swab_in_VTM__ UTM COMPREHENSIVE METABOLIC [id number] 00:00:00 Test Item Value Reference Range Interpretation Comments GLUCOSE (test code = 2217) 217 MG/DL BUN (test code = 2208) 13 MG/DL CREATININE (test code = 2214) 0.64 MG/DL eGFR AMER. (test code 128 ML/MIN/1.73 = 23057) eGFR NON- AMER. (test 110 ML/MIN/1.73 code = 17022) CALC BUN/CREAT (test code = 20 RATIO [...] (test code = 2219) 47 U/L CULTURE, [id number] 00:00:00 Test Item Value Reference Range Interpretation Comments CULTURE, URINE (test SPECIMEN NUMBER: code = 08168) [id number] COMPREHENSIVE METABOLIC [id number] 00:00:00 Test Item Value Reference Range Interpretation Comments GLUCOSE (test code = 2217) 217 MG/DL BUN (test code = 2208) 13 MG/DL CREATININE (test code = 2214) 0.64 MG/DL eGFR AMER. (test code 128 ML/MIN/1.73 = 08074) eGFR NON- AMER. (test 110 ML/MIN/1.73 code = 63585) CALC BUN/CREAT (test code = 20 RATIO [...] (test code = 2219) 47 U/L CULTURE, [id number] 00:00:00 Test Item Value Reference Range Interpretation Comments CULTURE, URINE (test SPECIMEN NUMBER: code = 98104) [id number] LIPID [id number] 00:00:00 Test Item Value Reference Range Interpretation Comments CHOLESTEROL (test code = 2210) 220 MG/DL TRIGLYCERIDES (test code = 2232) 873 MG/DL HDL CHOLESTEROL (test code = 30 MG/DL 2220) CALC LDL CHOL (test code = 2237) (NOTE) MG/DL RISK RATIO LDL/HDL (test code = (NOTE) RATIO 2238) LIPID [id number] 00:00:00 Test Item Value Reference Range Interpretation Comments CHOLESTEROL (test code = 2210) 220 MG/DL TRIGLYCERIDES (test code = 2232) 873 MG/DL HDL CHOLESTEROL (test code = 30 MG/DL 2220) CALC LDL CHOL (test code = 2237) (NOTE) MG/DL RISK RATIO LDL/HDL (test code = (NOTE) RATIO 2238) HEMOGLOBIN [id number] 00:00:00 Test Item Value Reference Range Interpretation Comments HEMOGLOBIN A1c (test code = 50015) 10.9 % HEMOGLOBIN [id number] 00:00:00 Test Item Value Reference Range Interpretation Comments HEMOGLOBIN A1c (test code = 01139) 10.9 % HEMOGLOBIN [id number] 00:00:00 Test Item Value Reference Range Interpretation Comments HEMOGLOBIN A1c (test code = 40503) 10.9 % COMPREHENSIVE METABOLIC [id number] 00:00:00 Test Item Value Reference Range Interpretation Comments GLUCOSE (test code = 2217) 217 MG/DL BUN (test code = 2208) 13 MG/DL CREATININE (test code = 2214) 0.64 MG/DL eGFR AMER. (test code 128 ML/MIN/1.73 = 16410) eGFR NON- AMER. (test 110 ML/MIN/1.73 code = 47575) CALC BUN/CREAT (test code = 20 RATIO [...] code = 2219) 47 U/L COMPREHENSIVE METABOLIC [id number] 00:00:00 Test Item Value Reference Range Interpretation Comments GLUCOSE (test code = 2217) 217 MG/DL BUN (test code = 2208) 13 MG/DL CREATININE (test code = 2214) 0.64 MG/DL eGFR AMER. (test code 128 ML/MIN/1.73 = 39916) eGFR NON- AMER. (test 110 ML/MIN/1.73 code = 79348) CALC BUN/CREAT (test code = 20 RATIO [...] (test code = 2219) 47 U/L CULTURE, [id number] 00:00:00 Test Item Value Reference Range Interpretation Comments CULTURE, URINE (test SPECIMEN NUMBER: code = 00805) [id number] CULTURE, [id number] 00:00:00 Test Item Value Reference Range Interpretation Comments CULTURE, URINE (test SPECIMEN NUMBER: code = 98397) [id number] LIPID [id number] 00:00:00 Test Item Value Reference Range Interpretation Comments CHOLESTEROL (test code = 2210) 220 MG/DL TRIGLYCERIDES (test code = 2232) 873 MG/DL HDL CHOLESTEROL (test code = 30 MG/DL 2220) CALC LDL CHOL (test code = 2237) (NOTE) MG/DL RISK RATIO LDL/HDL (test code = (NOTE) RATIO 2238) LIPID [id number] 00:00:00 Test Item Value Reference Range Interpretation Comments CHOLESTEROL (test code = 2210) 220 MG/DL TRIGLYCERIDES (test code = 2232) 873 MG/DL HDL CHOLESTEROL (test code = 30 MG/DL 2220) CALC LDL CHOL (test code = 2237) (NOTE) MG/DL RISK RATIO LDL/HDL (test code = (NOTE) RATIO 2238) HEMOGLOBIN [id number] 00:00:00 Test Item Value Reference Range Interpretation Comments HEMOGLOBIN A1c (test code = 59812) 10.9 % HEMOGLOBIN [id number] 00:00:00 Test Item Value Reference Range Interpretation Comments HEMOGLOBIN A1c (test code = 01274) 10.9 % HEMOGLOBIN [id number] 00:00:00 Test Item Value Reference Range Interpretation Comments HEMOGLOBIN A1c (test code = 82082) 10.9 % CULTURE, [id number] 00:00:00 Test Item Value Reference Range Interpretation Comments CULTURE, URINE (test SPECIMEN NUMBER: code = 80243) [id number] CULTURE, [id number] 00:00:00 Test Item Value Reference Range Interpretation Comments CULTURE, URINE (test SPECIMEN NUMBER: code = 13547) [id number] COMPREHENSIVE METABOLIC [id number] 00:00:00 Test Item Value Reference Range Interpretation Comments GLUCOSE (test code = 2217) 217 MG/DL BUN (test code = 2208) 13 MG/DL CREATININE (test code = 2214) 0.64 MG/DL eGFR AMER. (test code 128 ML/MIN/1.73 = 13670) eGFR NON- AMER. (test 110 ML/MIN/1.73 code = 32749) CALC BUN/CREAT (test code = 20 RATIO [...] code = 2219) 47 U/L COMPREHENSIVE METABOLIC [id number] 00:00:00 Test Item Value Reference Range Interpretation Comments GLUCOSE (test code = 2217) 217 MG/DL BUN (test code = 2208) 13 MG/DL CREATININE (test code = 2214) 0.64 MG/DL eGFR AMER. (test code 128 ML/MIN/1.73 = 57417) eGFR NON- AMER. (test 110 ML/MIN/1.73 code = 22406) CALC BUN/CREAT (test code = 20 RATIO [...] (test code = 2219) 47 U/L LIPID [id number] 00:00:00 Test Item Value Reference Range Interpretation Comments CHOLESTEROL (test code = 2210) 220 MG/DL TRIGLYCERIDES (test code = 2232) 873 MG/DL HDL CHOLESTEROL (test code = 30 MG/DL 2220) CALC LDL CHOL (test code = 2237) (NOTE) MG/DL RISK RATIO LDL/HDL (test code = (NOTE) RATIO 2238) LIPID [id number] 00:00:00 Test Item Value Reference Range Interpretation Comments CHOLESTEROL (test code = 2210) 220 MG/DL TRIGLYCERIDES (test code = 2232) 873 MG/DL HDL CHOLESTEROL (test code = 30 MG/DL 2220) CALC LDL CHOL (test code = 2237) (NOTE) MG/DL RISK RATIO LDL/HDL (test code = (NOTE) RATIO 2238) HEMOGLOBIN [id number] 00:00:00 Test Item Value Reference Range Interpretation Comments HEMOGLOBIN A1c (test code = 17238) 10.9 % HEMOGLOBIN [id number] 00:00:00 Test Item Value Reference Range Interpretation Comments HEMOGLOBIN A1c (test code = 26793) 10.9 % HEMOGLOBIN [id number] 00:00:00 Test Item Value Reference Range Interpretation Comments HEMOGLOBIN A1c (test code = 88258) 10.9 % CULTURE, [id number] 00:00:00 Test Item Value Reference Range Interpretation Comments CULTURE, URINE (test SPECIMEN NUMBER: code = 77416) [id number] COMPREHENSIVE METABOLIC [id number] 00:00:00 Test Item Value Reference Range Interpretation Comments GLUCOSE (test code = 2217) 217 MG/DL BUN (test code = 2208) 13 MG/DL CREATININE (test code = 2214) 0.64 MG/DL eGFR AMER. (test code 128 ML/MIN/1.73 = 71538) eGFR NON- AMER. (test 110 ML/MIN/1.73 code = 09613) CALC BUN/CREAT (test code = 20 RATIO [...] code = 2219) 47 U/L COMPREHENSIVE METABOLIC [id number] 00:00:00 Test Item Value Reference Range Interpretation Comments GLUCOSE (test code = 2217) 217 MG/DL BUN (test code = 2208) 13 MG/DL CREATININE (test code = 2214) 0.64 MG/DL eGFR AMER. (test code 128 ML/MIN/1.73 = 68432) eGFR NON- AMER. (test 110 ML/MIN/1.73 code = 79248) CALC BUN/CREAT (test code = 20 RATIO [...] (test code = 2219) 47 U/L CULTURE, [id number] 00:00:00 Test Item Value Reference Range Interpretation Comments CULTURE, URINE (test SPECIMEN NUMBER: code = 45189) [id number] LIPID [id number] 00:00:00 Test Item Value Reference Range Interpretation Comments CHOLESTEROL (test code = 2210) 220 MG/DL TRIGLYCERIDES (test code = 2232) 873 MG/DL HDL CHOLESTEROL (test code = 30 MG/DL 2220) CALC LDL CHOL (test code = 2237) (NOTE) MG/DL RISK RATIO LDL/HDL (test code = (NOTE) RATIO 2238) LIPID [id number] 00:00:00 Test Item Value Reference Range Interpretation Comments CHOLESTEROL (test code = 2210) 220 MG/DL TRIGLYCERIDES (test code = 2232) 873 MG/DL HDL CHOLESTEROL (test code = 30 MG/DL 2220) CALC LDL CHOL (test code = 2237) (NOTE) MG/DL RISK RATIO LDL/HDL (test code = (NOTE) RATIO 2238) HEMOGLOBIN [id number] 00:00:00 Test Item Value Reference Range Interpretation Comments HEMOGLOBIN A1c (test code = 42638) 10.9 % HEMOGLOBIN [id number] 00:00:00 Test Item Value Reference Range Interpretation Comments HEMOGLOBIN A1c (test code = 58585) 10.9 % HEMOGLOBIN [id number] 00:00:00 Test Item Value Reference Range Interpretation Comments HEMOGLOBIN A1c (test code = 95652) 10.9 % COMPREHENSIVE METABOLIC [id number] 00:00:00 Test Item Value Reference Range Interpretation Comments GLUCOSE (test code = 2217) 217 MG/DL BUN (test code = 2208) 13 MG/DL CREATININE (test code = 2214) 0.64 MG/DL eGFR AMER. (test code 128 ML/MIN/1.73 = 14045) eGFR NON- AMER. (test 110 ML/MIN/1.73 code = 72579) CALC BUN/CREAT (test code = 20 RATIO [...] (test code = 2219) 47 U/L CULTURE, [id number] 00:00:00 Test Item Value Reference Range Interpretation Comments CULTURE, URINE (test SPECIMEN NUMBER: code = 22701) [id number] CULTURE, [id number] 00:00:00 Test Item Value Reference Range Interpretation Comments CULTURE, URINE (test SPECIMEN NUMBER: code = 94710) [id number] COMPREHENSIVE METABOLIC [id number] 00:00:00 Test Item Value Reference Range Interpretation Comments GLUCOSE (test code = 2217) 217 MG/DL BUN (test code = 2208) 13 MG/DL CREATININE (test code = 2214) 0.64 MG/DL eGFR AMER. (test code 128 ML/MIN/1.73 = 09188) eGFR NON- AMER. (test 110 ML/MIN/1.73 code = 35354) CALC BUN/CREAT (test code = 20 RATIO [...] (test code = 2219) 47 U/L LIPID [id number] 00:00:00 Test Item Value Reference Range Interpretation Comments CHOLESTEROL (test code = 2210) 220 MG/DL TRIGLYCERIDES (test code = 2232) 873 MG/DL HDL CHOLESTEROL (test code = 30 MG/DL 2220) CALC LDL CHOL (test code = 2237) (NOTE) MG/DL RISK RATIO LDL/HDL (test code = (NOTE) RATIO 2238) LIPID [id number] 00:00:00 Test Item Value Reference Range Interpretation Comments CHOLESTEROL (test code = 2210) 220 MG/DL TRIGLYCERIDES (test code = 2232) 873 MG/DL HDL CHOLESTEROL (test code = 30 MG/DL 2220) CALC LDL CHOL (test code = 2237) (NOTE) MG/DL RISK RATIO LDL/HDL (test code = (NOTE) RATIO 2238) HEMOGLOBIN [id number] 00:00:00 Test Item Value Reference Range Interpretation Comments HEMOGLOBIN A1c (test code = 12935) 10.9 % HEMOGLOBIN [id number] 00:00:00 Test Item Value Reference Range Interpretation Comments HEMOGLOBIN A1c (test code = 63163) 10.9 % HEMOGLOBIN [id number] 00:00:00 Test Item Value Reference Range Interpretation Comments HEMOGLOBIN A1c (test code = 98497) 10.9 % COMPREHENSIVE METABOLIC [id number] 00:00:00 Test Item Value Reference Range Interpretation Comments GLUCOSE (test code = 2217) 217 MG/DL BUN (test code = 2208) 13 MG/DL CREATININE (test code = 2214) 0.64 MG/DL eGFR AMER. (test code 128 ML/MIN/1.73 = 78809) eGFR NON- AMER. (test 110 ML/MIN/1.73 code = 31583) CALC BUN/CREAT (test code = 20 RATIO [...] (test code = 2219) 47 U/L CULTURE, [id number] 00:00:00 Test Item Value Reference Range Interpretation Comments CULTURE, URINE (test SPECIMEN NUMBER: code = 95533) [id number] CULTURE, [id number] 00:00:00 Test Item Value Reference Range Interpretation Comments CULTURE, URINE (test SPECIMEN NUMBER: code = 20375) [id number] COMPREHENSIVE METABOLIC [id number] 00:00:00 Test Item Value Reference Range Interpretation Comments GLUCOSE (test code = 2217) 217 MG/DL BUN (test code = 2208) 13 MG/DL CREATININE (test code = 2214) 0.64 MG/DL eGFR AMER. (test code 128 ML/MIN/1.73 = 32811) eGFR NON- AMER. (test 110 ML/MIN/1.73 code = 46647) CALC BUN/CREAT (test code = 20 RATIO [...] (test code = 2219) 47 U/L LIPID [id number] 00:00:00 Test Item Value Reference Range Interpretation Comments CHOLESTEROL (test code = 2210) 220 MG/DL TRIGLYCERIDES (test code = 2232) 873 MG/DL HDL CHOLESTEROL (test code = 30 MG/DL 0) CALC LDL CHOL (test code = 2237) (NOTE) MG/DL RISK RATIO LDL/HDL (test code = (NOTE) RATIO 2238) LIPID [id number] 00:00:00 Test Item Value Reference Range Interpretation Comments CHOLESTEROL (test code = 2210) 220 MG/DL TRIGLYCERIDES (test code = 2232) 873 MG/DL HDL CHOLESTEROL (test code = 30 MG/DL 2220) CALC LDL CHOL (test code = 2237) (NOTE) MG/DL RISK RATIO LDL/HDL (test code = (NOTE) RATIO 2238) HEMOGLOBIN [id number] 00:00:00 Test Item Value Reference Range Interpretation Comments HEMOGLOBIN A1c (test code = 53970) 10.9 % HEMOGLOBIN [id number] 00:00:00 Test Item Value Reference Range Interpretation Comments HEMOGLOBIN A1c (test code = 91770) 10.9 % HEMOGLOBIN [id number] 00:00:00 Test Item Value Reference Range Interpretation Comments HEMOGLOBIN A1c (test code = 02712) 10.9 % COMPREHENSIVE METABOLIC [id number] 00:00:00 Test Item Value Reference Range Interpretation Comments GLUCOSE (test code = 2217) 217 MG/DL BUN (test code = 2208) 13 MG/DL CREATININE (test code = 2214) 0.64 MG/DL eGFR AMER. (test code 128 ML/MIN/1.73 = 82449) eGFR NON- AMER. (test 110 ML/MIN/1.73 code = 35995) CALC BUN/CREAT (test code = 20 RATIO [...] code = 2219) 47 U/L COMPREHENSIVE METABOLIC [id number] 00:00:00 Test Item Value Reference Range Interpretation Comments GLUCOSE (test code = 2217) 217 MG/DL BUN (test code = 2208) 13 MG/DL CREATININE (test code = 2214) 0.64 MG/DL eGFR AMER. (test code 128 ML/MIN/1.73 = 46712) eGFR NON- AMER. (test 110 ML/MIN/1.73 code = 06191) CALC BUN/CREAT (test code = 20 RATIO [...] (test code = 2219) 47 U/L CULTURE, [id number] 00:00:00 Test Item Value Reference Range Interpretation Comments CULTURE, URINE (test SPECIMEN NUMBER: code = 84269) [id number] COMPREHENSIVE METABOLIC [id number] 00:00:00 Test Item Value Reference Range Interpretation Comments GLUCOSE (test code = 2217) 217 MG/DL BUN (test code = 2208) 13 MG/DL CREATININE (test code = 2214) 0.64 MG/DL eGFR AMER. (test code 128 ML/MIN/1.73 = 17483) eGFR NON- AMER. (test 110 ML/MIN/1.73 code = 15407) CALC BUN/CREAT (test code = 20 RATIO [...] (test code = 2219) 47 U/L CULTURE, [id number] 00:00:00 Test Item Value Reference Range Interpretation Comments CULTURE, URINE (test SPECIMEN NUMBER: code = 86453) [id number] LIPID [id number] 00:00:00 Test Item Value Reference Range Interpretation Comments CHOLESTEROL (test code = 2210) 220 MG/DL TRIGLYCERIDES (test code = 2232) 873 MG/DL HDL CHOLESTEROL (test code = 30 MG/DL 2220) CALC LDL CHOL (test code = 2237) (NOTE) MG/DL RISK RATIO LDL/HDL (test code = (NOTE) RATIO 2238) LIPID [id number] 00:00:00 Test Item Value Reference Range Interpretation Comments CHOLESTEROL (test code = 2210) 220 MG/DL TRIGLYCERIDES (test code = 2232) 873 MG/DL HDL CHOLESTEROL (test code = 30 MG/DL 2220) CALC LDL CHOL (test code = 2237) (NOTE) MG/DL RISK RATIO LDL/HDL (test code = (NOTE) RATIO 2238) HEMOGLOBIN [id number] 00:00:00 Test Item Value Reference Range Interpretation Comments HEMOGLOBIN A1c (test code = 36547) 10.9 % HEMOGLOBIN [id number] 00:00:00 Test Item Value Reference Range Interpretation Comments HEMOGLOBIN A1c (test code = 25290) 10.9 % HEMOGLOBIN [id number] 00:00:00 Test Item Value Reference Range Interpretation Comments HEMOGLOBIN A1c (test code = 54110) 10.9 % CULTURE, [id number] 00:00:00 Test Item Value Reference Range Interpretation Comments CULTURE, URINE (test SPECIMEN NUMBER: code = 21931) [id number] LIPID [id number] 00:00:00 Test Item Value Reference Range Interpretation Comments CHOLESTEROL (test code = 2210) 220 MG/DL TRIGLYCERIDES (test code = 2232) 873 MG/DL HDL CHOLESTEROL (test code = 30 MG/DL 2220) CALC LDL CHOL (test code = 2237) (NOTE) MG/DL RISK RATIO LDL/HDL (test code = (NOTE) RATIO 2238) HEMOGLOBIN [id number] 00:00:00 Test Item Value Reference Range Interpretation Comments HEMOGLOBIN A1c (test code = 88491) 10.9 % HEMOGLOBIN [id number] 00:00:00 Test Item Value Reference Range Interpretation Comments HEMOGLOBIN A1c (test code = 59866) 10.9 % CULTURE, [id number] 00:00:00 Test Item Value Reference Range Interpretation Comments CULTURE, URINE (test SPECIMEN NUMBER: code = 09119) [id number] COMPREHENSIVE METABOLIC [id number] 00:00:00 Test Item Value Reference Range Interpretation Comments GLUCOSE (test code = 2217) 217 MG/DL BUN (test code = 2208) 13 MG/DL CREATININE (test code = 2214) 0.64 MG/DL eGFR AMER. (test code 128 ML/MIN/1.73 = 96887) eGFR NON- AMER. (test 110 ML/MIN/1.73 code = 38893) CALC BUN/CREAT (test code = 20 RATIO [...] (test code = 2219) 47 U/L CULTURE, [id number] 00:00:00 Test Item Value Reference Range Interpretation Comments CULTURE, URINE (test SPECIMEN NUMBER: code = 46610 [id number] COMPREHENSIVE METABOLIC [id number] 00:00:00 Test Item Value Reference Range Interpretation Comments GLUCOSE (test code = 2217) 217 MG/DL BUN (test code = 2208) 13 MG/DL CREATININE (test code = 2214) 0.64 MG/DL eGFR AMER. (test code 128 ML/MIN/1.73 = 18673) eGFR NON- AMER. (test 110 ML/MIN/1.73 code = 53491) CALC BUN/CREAT (test code = 20 RATIO [...] (test code = 2219) 47 U/L LIPID [id number] 00:00:00 Test Item Value Reference Range Interpretation Comments CHOLESTEROL (test code = 2210) 220 MG/DL TRIGLYCERIDES (test code = 2232) 873 MG/DL HDL CHOLESTEROL (test code = 30 MG/DL 2220) CALC LDL CHOL (test code = 2237) (NOTE) MG/DL RISK RATIO LDL/HDL (test code = (NOTE) RATIO 2238) LIPID [id number] 00:00:00 Test Item Value Reference Range Interpretation Comments CHOLESTEROL (test code = 2210) 220 MG/DL TRIGLYCERIDES (test code = 2232) 873 MG/DL HDL CHOLESTEROL (test code = 30 MG/DL 2220) CALC LDL CHOL (test code = 2237) (NOTE) MG/DL RISK RATIO LDL/HDL (test code = (NOTE) RATIO 2238) HEMOGLOBIN [id number] 00:00:00 Test Item Value Reference Range Interpretation Comments HEMOGLOBIN A1c (test code = 27154) 10.9 % HEMOGLOBIN [id number] 00:00:00 Test Item Value Reference Range Interpretation Comments HEMOGLOBIN A1c (test code = 62575) 10.9 % HEMOGLOBIN [id number] 00:00:00 Test Item Value Reference Range Interpretation Comments HEMOGLOBIN A1c (test code = 63235) 10.9 % CULTURE, [id number] 00:00:00 Test Item Value Reference Range Interpretation Comments CULTURE, URINE (test SPECIMEN NUMBER: code = 64860) [id number] COMPREHENSIVE METABOLIC [id number] 00:00:00 Test Item Value Reference Range Interpretation Comments GLUCOSE (test code = 2217) 217 MG/DL BUN (test code = 2208) 13 MG/DL CREATININE (test code = 2214) 0.64 MG/DL eGFR AMER. (test code 128 ML/MIN/1.73 = 57654) eGFR NON- AMER. (test 110 ML/MIN/1.73 code = 76215) CALC BUN/CREAT (test [...] (test code = 2219) 47 U/L CULTURE, [id number] 00:00:00 Test Item Value Reference Range Interpretation Comments CULTURE, URINE (test SPECIMEN NUMBER: code = 75278) [id number] COMPREHENSIVE METABOLIC [id number] 00:00:00 Test Item Value Reference Range Interpretation Comments GLUCOSE (test code = 2217) 217 MG/DL BUN (test code = 2208) 13 MG/DL CREATININE (test code = 2214) 0.64 MG/DL eGFR AMER. (test code 128 ML/MIN/1.73 = 59696) eGFR NON- AMER. (test 110 ML/MIN/1.73 code = 39676) CALC BUN/CREAT (test code = 20 RATIO [...] (test code = 2219) 47 U/L LIPID [id number] 00:00:00 Test Item Value Reference Range Interpretation Comments CHOLESTEROL (test code = 2210) 220 MG/DL TRIGLYCERIDES (test code = 2232) 873 MG/DL HDL CHOLESTEROL (test code = 30 MG/DL 2220) CALC LDL CHOL (test code = 2237) (NOTE) MG/DL RISK RATIO LDL/HDL (test code = (NOTE) RATIO 2238) LIPID [id number] 00:00:00 Test Item Value Reference Range Interpretation Comments CHOLESTEROL (test code = 2210) 220 MG/DL TRIGLYCERIDES (test code = 2232) 873 MG/DL HDL CHOLESTEROL (test code = 30 MG/DL 2220) CALC LDL CHOL (test code = 2237) (NOTE) MG/DL RISK RATIO LDL/HDL (test code = (NOTE) RATIO 2238) HEMOGLOBIN [id number] 00:00:00 Test Item Value Reference Range Interpretation Comments HEMOGLOBIN A1c (test code = 47985) 10.9 % HEMOGLOBIN [id number] 00:00:00 Test Item Value Reference Range Interpretation Comments HEMOGLOBIN A1c (test code = 38664) 10.9 % HEMOGLOBIN [id number] 00:00:00 Test Item Value Reference Range Interpretation Comments HEMOGLOBIN A1c (test code = 46022) 10.9 % COMPREHENSIVE METABOLIC [id number] 00:00:00 Test Item Value Reference Range Interpretation Comments GLUCOSE (test code = 2217) 217 MG/DL BUN (test code = 2208) 13 MG/DL CREATININE (test code = 2214) 0.64 MG/DL eGFR AMER. (test code 128 ML/MIN/1.73 = 50294) eGFR NON- AMER. (test 110 ML/MIN/1.73 code = 66666) CALC BUN/CREAT (test code = 20 RATIO [...] (test code = 2219) 47 U/L CULTURE, [id number] 00:00:00 Test Item Value Reference Range Interpretation Comments CULTURE, URINE (test SPECIMEN NUMBER: code = 25324) [id number] COMPREHENSIVE METABOLIC [id number] 00:00:00 Test Item Value Reference Range Interpretation Comments GLUCOSE (test code = 2217) 217 MG/DL BUN (test code = 2208) 13 MG/DL CREATININE (test code = 2214) 0.64 MG/DL eGFR AMER. (test code 128 ML/MIN/1.73 = 65270) eGFR NON- AMER. (test 110 ML/MIN/1.73 code = 35501) CALC BUN/CREAT (test code = 20 RATIO [...] (test code = 2219) 47 U/L CULTURE, [id number] 00:00:00 Test Item Value Reference Range Interpretation Comments CULTURE, URINE (test SPECIMEN NUMBER: code = 74986) [id number] LIPID [id number] 00:00:00 Test Item Value Reference Range Interpretation Comments CHOLESTEROL (test code = 2210) 220 MG/DL TRIGLYCERIDES (test code = 2232) 873 MG/DL HDL CHOLESTEROL (test code = 30 MG/DL 2220) CALC LDL CHOL (test code = 2237) (NOTE) MG/DL RISK RATIO LDL/HDL (test code = (NOTE) RATIO 2238) LIPID [id number] 00:00:00 Test Item Value Reference Range Interpretation Comments CHOLESTEROL (test code = 2210) 220 MG/DL TRIGLYCERIDES (test code = 2232) 873 MG/DL HDL CHOLESTEROL (test code = 30 MG/DL 2220) CALC LDL CHOL (test code = 2237) (NOTE) MG/DL RISK RATIO LDL/HDL (test code = (NOTE) RATIO 2238) HEMOGLOBIN [id number] 00:00:00 Test Item Value Reference Range Interpretation Comments HEMOGLOBIN A1c (test code = 80223) 10.9 % HEMOGLOBIN [id number] 00:00:00 Test Item Value Reference Range Interpretation Comments HEMOGLOBIN A1c (test code = 17161) 10.9 % HEMOGLOBIN [id number] 00:00:00 Test Item Value Reference Range Interpretation Comments HEMOGLOBIN A1c (test code = 28312) 10.9 % - XR ANKLE 3 + V [id number] 07:19:00 Patient Name: Marge Franco Unit No: [id number] EXAMS: CPT CODE: [id number] XR ANKLE 3 + V RT 45018 Right ankle 3 views COMMENT: There is [...] SAMANTHA MORALES, RT(R) Transcribed D/ (718) [facility] NAME: Marge [id number] [facility] PHYS: Judi Cardenas DO : 1980 AGE: 40 SEX: F [place] [address] LOC: TEOFILO PHONE #: [phone] EXAM DATE: 02/13/2020 STATUS: DEP ER FAX #: [phone] RAD #: D/C DT PAGE 1 Signed Report Patient Name: Marge Franco Unit No: [id number] EXAMS: CPT CODE: [id number] XR ANKLE 3 + V RT 31473 (Continued) Orig Print D/T: S: 02/14/2020 (721) [facility] NAME: Marge Franco [address] [facility] PHYS: Judi Cardenas DO : 1980 AGE: 40 SEX: F [place] [address] LOC: TEOFILO PHONE #: [phone] EXAM DATE: 02/13/2020 STATUS: DEP ER FAX #: [phone] RAD #: D/C DT PAGE 2 Signed Report- XR FOOT 2 VIEWS [id number] 07:19:00 Patient Name: Marge Franco Unit No: [id number] EXAMS: CPT CODE: [id number] [place]R FO[place] [address] [place] [address] Right ankle 3 views COMMENT: There is [...] SAMANTHA MORALES, RT(R) Transcribed D/ (718) [facility] NAME: Marge Franco [address] [place] [address] PHYS: Judi Cardenas DO : 1980 AGE: 40 SEX: F [place] [address] LOC: TEOFILO PHONE #: [phone] EXAM DATE: 02/13/2020 STATUS: DEP ER FAX #: RAD #: D/C DT PAGE 1 Signed Report Patient Name: Marge Franco Unit No: [id number] EXAMS: CPT CODE: [id number] XR FOOT 2 [place] [address] (Continued) Orig Print D/T: S: 02/14/2020 (721) [facility] NAME: Benny Franconne [address] [place] [address] PHYS: Judi Cardenas DO : 1980 AGE: 40 SEX: F [place] [address] LOC: TEOFILO PHONE #: [phone] EXAMDATE: 02/13/2020 STATUS: DEP ER FAX #: [phone] RAD #: D/C DT PAGE 2 Signed [id number] 11:17:00 Test Item Value Reference Range Interpretation Comments GLUBED (test code = GLUBED) 119 mg/dL 60-125 N [id number] 08:15:00 Test Item Value Reference Range Interpretation Comments GLUBED (test code = GLUBED) 117 mg/dL 60-125 N Novel Coronavirus 2019 [id number] 17:12:00 Test Item Value Reference Range Interpretation Comments Novel Coronavirus 2019 Inhouse (test Negative Negative code = COVNONPUI) Novel Coronavirus 2019 [id number] 17:12:00 Test Item Value Reference Range Interpretation Comments Novel Coronavirus 2019 Inhouse (test Negative Negative code = COVNONPUI) CBC W/AUTO [id number] 20:19:00 Test Item Value Reference Range Interpretation [...] 0-0 N code = NRBC) BASIC METABOLIC [id number] 19:54:00 Test Item Value Reference Range Interpretation [...] RATE (test code = GFR) mL/mi n/1.73 [id number] Range:Healthy A dults >90 mL/min/1.73 m2 For Chronic Kid stoney Disease: Stage II Mild Decrease i n GFR 60-90 Stage III Moderate Decrea se in GFR 30-59 Stage IV Severe Decrease in GFR 15-29 Stage V Kidney Failure <15 CREATININE (test code 0.83 mg/dL 0.55-1.30 N = CREAT) CALCIUM (test code = 9.6 mg/dL 8.2-10.1 N CA) - CT LOWER EXTRM W/O C [id number] 14:57:00 Patient Name: MARGE FRANCO Unit No: [id number] EXAMS: CPT CODE: [id number] CT LOWER EXTRM W/[place] [address] [place] SCAN RIGHT ANKLE WITH RECONSTRUCTION DIAGNOSIS: [...] with ACR practice standards and adherence to rat exterminator's recommendations. INDICATION: RIGHT ANKLE PAIN COMPARISON: None. COMMENT: Findings are as described above. at 1457 Reported and signed by: America Schuler MD CC: Elbert Wilson MD Technologist: Shaan rhodes,RT(R) CTDI: DLP: Trnscrpt: 01/04/2020 (7394) [email or web address] [facility] NAME: MARGE FRANCO [address] PHYS: Elbert Rodrigues MD : 1980 AGE: 39 SEX: F [place] [address] LOC: Y.RAD PHONE #: [phone] EXAM DATE: 01/04/2020 STATUS: REG CLI FAX #: [phone] RAD #: D/C DT PAGE 1 Signed Report Patient Name: MARGE FRANCOOTILDE Unit No: [id number] EXAMS: CPT CODE: [id number] CT LOWER EXTRM W/[place] [address] (Continued) Orig Print D/T: S: 01/04/2020 (1500) [facility] NAME: MARGE FRANCO [address] PHYS: Elbert Rodrigues MD : 1980 AGE: 39 SEX: F [place] [address] : Y.RAD PHONE #: [phone] EXAM DATE: 01/04/2020 STATUS: REG CLI FAX #: [phone] RAD #: D/C DT PAGE 2 Signed ReportCULTURE, [id number] 00:00:00 Test Item Value Reference Range Interpretation Comments CULTURE, URINE (test SPECIMEN NUMBER: code = 36044) [id number] CULTURE, [id number] 00:00:00 Test Item Value Reference Range Interpretation Comments CULTURE, URINE (test SPECIMEN NUMBER: code = 69005) [id number] CULTURE, [id number] 00:00:00 Test Item Value Reference Range Interpretation Comments CULTURE, URINE (test SPECIMEN NUMBER: code = 97175) [id number] CULTURE, [id number] 00:00:00 Test Item Value Reference Range Interpretation Comments CULTURE, URINE (test SPECIMEN NUMBER: code = 13314) [id number] CULTURE, [id number] 00:00:00 Test Item Value Reference Range Interpretation Comments CULTURE, URINE (test SPECIMEN NUMBER: code = 39128) [id number] CULTURE, [id number] 00:00:00 Test Item Value Reference Range Interpretation Comments CULTURE, URINE (test SPECIMEN NUMBER: code = 07115) [id number] CULTURE, [id number] 00:00:00 Test Item Value Reference Range Interpretation Comments CULTURE, URINE (test SPECIMEN NUMBER: code = 92862) [id number] CULTURE, [id number] 00:00:00 Test Item Value Reference Range Interpretation Comments CULTURE, URINE (test SPECIMEN NUMBER: code = 35436) [id number] CULTURE, [id number] 00:00:00 Test Item Value Reference Range Interpretation Comments CULTURE, URINE (test SPECIMEN NUMBER: code = 03545) [id number] CULTURE, [id number] 00:00:00 Test Item Value Reference Range Interpretation Comments CULTURE, URINE (test SPECIMEN NUMBER: code = 16892) [id number] CULTURE, [id number] 00:00:00 Test Item Value Reference Range Interpretation Comments CULTURE, URINE (test SPECIMEN NUMBER: code = 86625) [id number] CULTURE, [id number] 00:00:00 Test Item Value Reference Range Interpretation Comments CULTURE, URINE (test SPECIMEN NUMBER: code = 79251) [id number] CULTURE, [id number] 00:00:00 Test Item Value Reference Range Interpretation Comments CULTURE, URINE (test SPECIMEN NUMBER: code = 94839) [id number] CULTURE, [id number] 00:00:00 Test Item Value Reference Range Interpretation Comments CULTURE, URINE (test SPECIMEN NUMBER: code = 58403) [id number] CULTURE, [id number] 00:00:00 Test Item Value Reference Range Interpretation Comments CULTURE, URINE (test SPECIMEN NUMBER: code = 60987) [id number] CULTURE, [id number] 00:00:00 Test Item Value Reference Range Interpretation Comments CULTURE, URINE (test SPECIMEN NUMBER: code = 35836) [id number] CULTURE, [id number] 00:00:00 Test Item Value Reference Range Interpretation Comments CULTURE, URINE (test SPECIMEN NUMBER: code = 22324) [id number] CULTURE, [id number] 00:00:00 Test Item Value Reference Range Interpretation Comments CULTURE, URINE (test SPECIMEN NUMBER: code = 71794) [id number] CULTURE, [id number] 00:00:00 Test Item Value Reference Range Interpretation Comments CULTURE, URINE (test SPECIMEN NUMBER: code = 49694) [id number] CULTURE, [id number] 00:00:00 Test Item Value Reference Range Interpretation Comments CULTURE, URINE (test SPECIMEN NUMBER: code = 69803) [id number] CULTURE, [id number] 00:00:00 Test Item Value Reference Range Interpretation Comments CULTURE, URINE (test SPECIMEN NUMBER: code = 94187) [id number] LIPID [id number] 00:00:00 Test Item Value Reference Range Interpretation Comments CHOLESTEROL (test code = 2210) 354 MG/DL TRIGLYCERIDES (test code = 2232) 2608 MG/DL HDL CHOLESTEROL (test code = 19 MG/DL 2220) CALC LDL CHOL (test code = 2237) NOTE MG/DL RISK RATIO LDL/HDL (test code = (NOTE) RATIO 2238) LIPID [id number] 00:00:00 Test Item Value Reference Range Interpretation Comments CHOLESTEROL (test code = 2210) 354 MG/DL TRIGLYCERIDES (test code = 2232) 2608 MG/DL HDL CHOLESTEROL (test code = 19 MG/DL 2220) CALC LDL CHOL (test code = 2237) NOTE MG/DL RISK RATIO LDL/HDL (test code = (NOTE) RATIO 2238) HEMOGLOBIN [id number] 00:00:00 Test Item Value Reference Range Interpretation Comments HEMOGLOBIN A1c (test code = 30355) 11.5 % HEMOGLOBIN [id number] 00:00:00 Test Item Value Reference Range Interpretation Comments HEMOGLOBIN A1c (test code = 23186) 11.5 % HEMOGLOBIN [id number] 00:00:00 Test Item Value Reference Range Interpretation Comments HEMOGLOBIN A1c (test code = 90694) 11.5 % MICROALBUMIN/CREATININE, RANDOM AND [id number] 00:00:00 Test Item Value Reference Range Interpretation Comments CREATININE, URINE, CONC. (test 92.4 MG/DL code = 2072) ALBUMIN, URINE, RANDOM (test code 158.5 MG/DL = 70565) CALC ALBUMIN/CREAT, RND (test 1715 MG/G code = 40994) MICROALBUMIN/CREATININE, RANDOM AND [id number] 00:00:00 Test Item Value Reference Range Interpretation Comments CREATININE, URINE, CONC. (test 92.4 MG/DL code = 2072) ALBUMIN, URINE, RANDOM (test code 158.5 MG/DL = 01465) CALC ALBUMIN/CREAT, RND (test 1715 MG/G code = 93835) LIPID [id number] 00:00:00 Test Item Value Reference Range Interpretation Comments CHOLESTEROL (test code = 2210) 354 MG/DL TRIGLYCERIDES (test code = 2232) 2608 MG/DL HDL CHOLESTEROL (test code = 19 MG/DL 2220) CALC LDL CHOL (test code = 2237) NOTE MG/DL RISK RATIO LDL/HDL (test code = (NOTE) RATIO 2238) LIPID [id number] 00:00:00 Test Item Value Reference Range Interpretation Comments CHOLESTEROL (test code = 2210) 354 MG/DL TRIGLYCERIDES (test code = 2232) 2608 MG/DL HDL CHOLESTEROL (test code = 19 MG/DL 2220) CALC LDL CHOL (test code = 2237) NOTE MG/DL RISK RATIO LDL/HDL (test code = (NOTE) RATIO 2238) HEMOGLOBIN [id number] 00:00:00 Test Item Value Reference Range Interpretation Comments HEMOGLOBIN A1c (test code = 93274) 11.5 % HEMOGLOBIN [id number] 00:00:00 Test Item Value Reference Range Interpretation Comments HEMOGLOBIN A1c (test code = 38168) 11.5 % HEMOGLOBIN [id number] 00:00:00 Test Item Value Reference Range Interpretation Comments HEMOGLOBIN A1c (test code = 36713) 11.5 % MICROALBUMIN/CREATININE, RANDOM AND [id number] 00:00:00 Test Item Value Reference Range Interpretation Comments CREATININE, URINE, CONC. (test 92.4 MG/DL code = 2072) ALBUMIN, URINE, RANDOM (test code 158.5 MG/DL = 69244) CALC ALBUMIN/CREAT, RND (test 1715 MG/G code = 84935) MICROALBUMIN/CREATININE, RANDOM AND [id number] 00:00:00 Test Item Value Reference Range Interpretation Comments CREATININE, URINE, CONC. (test 92.4 MG/DL code = 2072) ALBUMIN, URINE, RANDOM (test code 158.5 MG/DL = 45454) CALC ALBUMIN/CREAT, RND (test 1715 MG/G code = 55019) LIPID [id number] 00:00:00 Test Item Value Reference Range Interpretation Comments CHOLESTEROL (test code = 2210) 354 MG/DL TRIGLYCERIDES (test code = 2232) 2608 MG/DL HDL CHOLESTEROL (test code = 19 MG/DL 2220) CALC LDL CHOL (test code = 2237) NOTE MG/DL RISK RATIO LDL/HDL (test code = (NOTE) RATIO 2238) LIPID [id number] 00:00:00 Test Item Value Reference Range Interpretation Comments CHOLESTEROL (test code = 2210) 354 MG/DL TRIGLYCERIDES (test code = 2232) 2608 MG/DL HDL CHOLESTEROL (test code = 19 MG/DL 2220) CALC LDL CHOL (test code = 2237) NOTE MG/DL RISK RATIO LDL/HDL (test code = (NOTE) RATIO 2238) HEMOGLOBIN [id number] 00:00:00 Test Item Value Reference Range Interpretation Comments HEMOGLOBIN A1c (test code = 24005) 11.5 % HEMOGLOBIN [id number] 00:00:00 Test Item Value Reference Range Interpretation Comments HEMOGLOBIN A1c (test code = 92286) 11.5 % HEMOGLOBIN [id number] 00:00:00 Test Item Value Reference Range Interpretation Comments HEMOGLOBIN A1c (test code = 41560) 11.5 % MICROALBUMIN/CREATININE, RANDOM AND [id number] 00:00:00 Test Item Value Reference Range Interpretation Comments CREATININE, URINE, CONC. (test 92.4 MG/DL code = 2072) ALBUMIN, URINE, RANDOM (test code 158.5 MG/DL = 31256) CALC ALBUMIN/CREAT, RND (test 1715 MG/G code = 84933) MICROALBUMIN/CREATININE, RANDOM AND [id number] 00:00:00 Test Item Value Reference Range Interpretation Comments CREATININE, URINE, CONC. (test 92.4 MG/DL code = 2072) ALBUMIN, URINE, RANDOM (test code 158.5 MG/DL = 41083) CALC ALBUMIN/CREAT, RND (test 1715 MG/G code = 99695) LIPID [id number] 00:00:00 Test Item Value Reference Range Interpretation Comments CHOLESTEROL (test code = 2210) 354 MG/DL TRIGLYCERIDES (test code = 2232) 2608 MG/DL HDL CHOLESTEROL (test code = 19 MG/DL 2220) CALC LDL CHOL (test code = 2237) NOTE MG/DL RISK RATIO LDL/HDL (test code = (NOTE) RATIO 2238) LIPID [id number] 00:00:00 Test Item Value Reference Range Interpretation Comments CHOLESTEROL (test code = 2210) 354 MG/DL TRIGLYCERIDES (test code = 2232) 2608 MG/DL HDL CHOLESTEROL (test code = 19 MG/DL 2220) CALC LDL CHOL (test code = 2237) NOTE MG/DL RISK RATIO LDL/HDL (test code = (NOTE) RATIO 2238) HEMOGLOBIN [id number] 00:00:00 Test Item Value Reference Range Interpretation Comments HEMOGLOBIN A1c (test code = 55390) 11.5 % HEMOGLOBIN [id number] 00:00:00 Test Item Value Reference Range Interpretation Comments HEMOGLOBIN A1c (test code = 08997) 11.5 % HEMOGLOBIN [id number] 00:00:00 Test Item Value Reference Range Interpretation Comments HEMOGLOBIN A1c (test code = 10754) 11.5 % MICROALBUMIN/CREATININE, RANDOM AND [id number] 00:00:00 Test Item Value Reference Range Interpretation Comments CREATININE, URINE, CONC. (test 92.4 MG/DL code = 2072) ALBUMIN, URINE, RANDOM (test code 158.5 MG/DL = 22707) CALC ALBUMIN/CREAT, RND (test 1715 MG/G code = 80695) MICROALBUMIN/CREATININE, RANDOM AND [id number] 00:00:00 Test Item Value Reference Range Interpretation Comments CREATININE, URINE, CONC. (test 92.4 MG/DL code = 2072) ALBUMIN, URINE, RANDOM (test code 158.5 MG/DL = 00528) CALC ALBUMIN/CREAT, RND (test 1715 MG/G code = 27287) LIPID [id number] 00:00:00 Test Item Value Reference Range Interpretation Comments CHOLESTEROL (test code = 2210) 354 MG/DL TRIGLYCERIDES (test code = 2232) 2608 MG/DL HDL CHOLESTEROL (test code = 19 MG/DL 2220) CALC LDL CHOL (test code = 2237) NOTE MG/DL RISK RATIO LDL/HDL (test code = (NOTE) RATIO 2238) LIPID [id number] 00:00:00 Test Item Value Reference Range Interpretation Comments CHOLESTEROL (test code = 2210) 354 MG/DL TRIGLYCERIDES (test code = 2232) 2608 MG/DL HDL CHOLESTEROL (test code = 19 MG/DL 2220) CALC LDL CHOL (test code = 2237) NOTE MG/DL RISK RATIO LDL/HDL (test code = (NOTE) RATIO 2238) HEMOGLOBIN [id number] 00:00:00 Test Item Value Reference Range Interpretation Comments HEMOGLOBIN A1c (test code = 04469) 11.5 % HEMOGLOBIN [id number] 00:00:00 Test Item Value Reference Range Interpretation Comments HEMOGLOBIN A1c (test code = 69607) 11.5 % HEMOGLOBIN [id number] 00:00:00 Test Item Value Reference Range Interpretation Comments HEMOGLOBIN A1c (test code = 89230) 11.5 % MICROALBUMIN/CREATININE, RANDOM AND [id number] 00:00:00 Test Item Value Reference Range Interpretation Comments CREATININE, URINE, CONC. (test 92.4 MG/DL code = 2072) ALBUMIN, URINE, RANDOM (test code 158.5 MG/DL = 06081) CALC ALBUMIN/CREAT, RND (test 1715 MG/G code = 69690) MICROALBUMIN/CREATININE, RANDOM AND [id number] 00:00:00 Test Item Value Reference Range Interpretation Comments CREATININE, URINE, CONC. (test 92.4 MG/DL code = 2072) ALBUMIN, URINE, RANDOM (test code 158.5 MG/DL = 65990) CALC ALBUMIN/CREAT, RND (test 1715 MG/G code = 90737) LIPID [id number] 00:00:00 Test Item Value Reference Range Interpretation Comments CHOLESTEROL (test code = 2210) 354 MG/DL TRIGLYCERIDES (test code = 2232) 2608 MG/DL HDL CHOLESTEROL (test code = 19 MG/DL 2220) CALC LDL CHOL (test code = 2237) NOTE MG/DL RISK RATIO LDL/HDL (test code = (NOTE) RATIO 2238) LIPID [id number] 00:00:00 Test Item Value Reference Range Interpretation Comments CHOLESTEROL (test code = 2210) 354 MG/DL TRIGLYCERIDES (test code = 2232) 2608 MG/DL HDL CHOLESTEROL (test code = 19 MG/DL 2220) CALC LDL CHOL (test code = 2237) NOTE MG/DL RISK RATIO LDL/HDL (test code = (NOTE) RATIO 2238) HEMOGLOBIN [id number] 00:00:00 Test Item Value Reference Range Interpretation Comments HEMOGLOBIN A1c (test code = 61086) 11.5 % HEMOGLOBIN [id number] 00:00:00 Test Item Value Reference Range Interpretation Comments HEMOGLOBIN A1c (test code = 47494) 11.5 % HEMOGLOBIN [id number] 00:00:00 Test Item Value Reference Range Interpretation Comments HEMOGLOBIN A1c (test code = 94068) 11.5 % MICROALBUMIN/CREATININE, RANDOM AND [id number] 00:00:00 Test Item Value Reference Range Interpretation Comments CREATININE, URINE, CONC. (test 92.4 MG/DL code = 2072) ALBUMIN, URINE, RANDOM (test code 158.5 MG/DL = 28444) CALC ALBUMIN/CREAT, RND (test 1715 MG/G code = 39508) MICROALBUMIN/CREATININE, RANDOM AND [id number] 00:00:00 Test Item Value Reference Range Interpretation Comments CREATININE, URINE, CONC. (test 92.4 MG/DL code = 2072) ALBUMIN, URINE, RANDOM (test code 158.5 MG/DL = 95256) CALC ALBUMIN/CREAT, RND (test 1715 MG/G code = 59954) LIPID [id number] 00:00:00 Test Item Value Reference Range Interpretation Comments CHOLESTEROL (test code = 2210) 354 MG/DL TRIGLYCERIDES (test code = 2232) 2608 MG/DL HDL CHOLESTEROL (test code = 19 MG/DL 2220) CALC LDL CHOL (test code = 2237) NOTE MG/DL RISK RATIO LDL/HDL (test code = (NOTE) RATIO 2238) LIPID [id number] 00:00:00 Test Item Value Reference Range Interpretation Comments CHOLESTEROL (test code = 2210) 354 MG/DL TRIGLYCERIDES (test code = 2232) 2608 MG/DL HDL CHOLESTEROL (test code = 19 MG/DL 2220) CALC LDL CHOL (test code = 2237) NOTE MG/DL RISK RATIO LDL/HDL (test code = (NOTE) RATIO 2238) HEMOGLOBIN [id number] 00:00:00 Test Item Value Reference Range Interpretation Comments HEMOGLOBIN A1c (test code = 00903) 11.5 % HEMOGLOBIN [id number] 00:00:00 Test Item Value Reference Range Interpretation Comments HEMOGLOBIN A1c (test code = 32168) 11.5 % HEMOGLOBIN [id number] 00:00:00 Test Item Value Reference Range Interpretation Comments HEMOGLOBIN A1c (test code = 57730) 11.5 % MICROALBUMIN/CREATININE, RANDOM AND [id number] 00:00:00 Test Item Value Reference Range Interpretation Comments CREATININE, URINE, CONC. (test 92.4 MG/DL code = 2072) ALBUMIN, URINE, RANDOM (test code 158.5 MG/DL = 81676) CALC ALBUMIN/CREAT, RND (test 1715 MG/G code = 62572) MICROALBUMIN/CREATININE, RANDOM AND [id number] 00:00:00 Test Item Value Reference Range Interpretation Comments CREATININE, URINE, CONC. (test 92.4 MG/DL code = 2072) ALBUMIN, URINE, RANDOM (test code 158.5 MG/DL = 79595) CALC ALBUMIN/CREAT, RND (test 1715 MG/G code = 14741) LIPID [id number] 00:00:00 Test Item Value Reference Range Interpretation Comments CHOLESTEROL (test code = 2210) 354 MG/DL TRIGLYCERIDES (test code = 2232) 2608 MG/DL HDL CHOLESTEROL (test code = 19 MG/DL 2220) CALC LDL CHOL (test code = 2237) NOTE MG/DL RISK RATIO LDL/HDL (test code = (NOTE) RATIO 2238) HEMOGLOBIN [id number] 00:00:00 Test Item Value Reference Range Interpretation Comments HEMOGLOBIN A1c (test code = 24982) 11.5 % HEMOGLOBIN [id number] 00:00:00 Test Item Value Reference Range Interpretation Comments HEMOGLOBIN A1c (test code = 14593) 11.5 % MICROALBUMIN/CREATININE, RANDOM AND [id number] 00:00:00 Test Item Value Reference Range Interpretation Comments CREATININE, URINE, CONC. (test 92.4 MG/DL code = 2072) ALBUMIN, URINE, RANDOM (test code 158.5 MG/DL = 41270) CALC ALBUMIN/CREAT, RND (test 1715 MG/G code = 37325) LIPID [id number] 00:00:00 Test Item Value Reference Range Interpretation Comments CHOLESTEROL (test code = 2210) 354 MG/DL TRIGLYCERIDES (test code = 2232) 2608 MG/DL HDL CHOLESTEROL (test code = 19 MG/DL 2220) CALC LDL CHOL (test code = 2237) NOTE MG/DL RISK RATIO LDL/HDL (test code = (NOTE) RATIO 2238) LIPID [id number] 00:00:00 Test Item Value Reference Range Interpretation Comments CHOLESTEROL (test code = 2210) 354 MG/DL TRIGLYCERIDES (test code = 2232) 2608 MG/DL HDL CHOLESTEROL (test code = 19 MG/DL 2220) CALC LDL CHOL (test code = 2237) NOTE MG/DL RISK RATIO LDL/HDL (test code = (NOTE) RATIO 2238) HEMOGLOBIN [id number] 00:00:00 Test Item Value Reference Range Interpretation Comments HEMOGLOBIN A1c (test code = 52516) 11.5 % HEMOGLOBIN [id number] 00:00:00 Test Item Value Reference Range Interpretation Comments HEMOGLOBIN A1c (test code = 00074) 11.5 % HEMOGLOBIN [id number] 00:00:00 Test Item Value Reference Range Interpretation Comments HEMOGLOBIN A1c (test code = 60764) 11.5 % MICROALBUMIN/CREATININE, RANDOM AND [id number] 00:00:00 Test Item Value Reference Range Interpretation Comments CREATININE, URINE, CONC. (test 92.4 MG/DL code = 2072) ALBUMIN, URINE, RANDOM (test code 158.5 MG/DL = 43900) CALC ALBUMIN/CREAT, RND (test 1715 MG/G code = 75939) MICROALBUMIN/CREATININE, RANDOM AND [id number] 00:00:00 Test Item Value Reference Range Interpretation Comments CREATININE, URINE, CONC. (test 92.4 MG/DL code = 2072) ALBUMIN, URINE, RANDOM (test code 158.5 MG/DL = 52316) CALC ALBUMIN/CREAT, RND (test 1715 MG/G code = 28611) LIPID [id number] 00:00:00 Test Item Value Reference Range Interpretation Comments CHOLESTEROL (test code = 2210) 354 MG/DL TRIGLYCERIDES (test code = 2232) 2608 MG/DL HDL CHOLESTEROL (test code = 19 MG/DL 2220) CALC LDL CHOL (test code = 2237) NOTE MG/DL RISK RATIO LDL/HDL (test code = (NOTE) RATIO 2238) LIPID [id number] 00:00:00 Test Item Value Reference Range Interpretation Comments CHOLESTEROL (test code = 2210) 354 MG/DL TRIGLYCERIDES (test code = 2232) 2608 MG/DL HDL CHOLESTEROL (test code = 19 MG/DL 2220) CALC LDL CHOL (test code = 2237) NOTE MG/DL RISK RATIO LDL/HDL (test code = (NOTE) RATIO 2238) HEMOGLOBIN [id number] 00:00:00 Test Item Value Reference Range Interpretation Comments HEMOGLOBIN A1c (test code = 94100) 11.5 % HEMOGLOBIN [id number] 00:00:00 Test Item Value Reference Range Interpretation Comments HEMOGLOBIN A1c (test code = 55089) 11.5 % HEMOGLOBIN [id number] 00:00:00 Test Item Value Reference Range Interpretation Comments HEMOGLOBIN A1c (test code = 14663) 11.5 % MICROALBUMIN/CREATININE, RANDOM AND [id number] 00:00:00 Test Item Value Reference Range Interpretation Comments CREATININE, URINE, CONC. (test 92.4 MG/DL code = 2072) ALBUMIN, URINE, RANDOM (test code 158.5 MG/DL = 75441) CALC ALBUMIN/CREAT, RND (test 1715 MG/G code = 55330) MICROALBUMIN/CREATININE, RANDOM AND [id number] 00:00:00 Test Item Value Reference Range Interpretation Comments CREATININE, URINE, CONC. (test 92.4 MG/DL code = 2072) ALBUMIN, URINE, RANDOM (test code 158.5 MG/DL = 91419) CALC ALBUMIN/CREAT, RND (test 1715 MG/G code = 74122) LIPID [id number] 00:00:00 Test Item Value Reference Range Interpretation Comments CHOLESTEROL (test code = 2210) 354 MG/DL TRIGLYCERIDES (test code = 2232) 2608 MG/DL HDL CHOLESTEROL (test code = 19 MG/DL 2220) CALC LDL CHOL (test code = 2237) NOTE MG/DL RISK RATIO LDL/HDL (test code = (NOTE) RATIO 2238) LIPID [id number] 00:00:00 Test Item Value Reference Range Interpretation Comments CHOLESTEROL (test code = 2210) 354 MG/DL TRIGLYCERIDES (test code = 2232) 2608 MG/DL HDL CHOLESTEROL (test code = 19 MG/DL 2220) CALC LDL CHOL (test code = 2237) NOTE MG/DL RISK RATIO LDL/HDL (test code = (NOTE) RATIO 2238) HEMOGLOBIN [id number] 00:00:00 Test Item Value Reference Range Interpretation Comments HEMOGLOBIN A1c (test code = 65927) 11.5 % HEMOGLOBIN [id number] 00:00:00 Test Item Value Reference Range Interpretation Comments HEMOGLOBIN A1c (test code = 34037) 11.5 % HEMOGLOBIN [id number] 00:00:00 Test Item Value Reference Range Interpretation Comments HEMOGLOBIN A1c (test code = 38908) 11.5 % MICROALBUMIN/CREATININE, RANDOM AND [id number] 00:00:00 Test Item Value Reference Range Interpretation Comments CREATININE, URINE, CONC. (test 92.4 MG/DL code = 2072) ALBUMIN, URINE, RANDOM (test code 158.5 MG/DL = 68957) CALC ALBUMIN/CREAT, RND (test 1715 MG/G code = 26595) MICROALBUMIN/CREATININE, RANDOM AND [id number] 00:00:00 Test Item Value Reference Range Interpretation Comments CREATININE, URINE, CONC. (test 92.4 MG/DL code = 2072) ALBUMIN, URINE, RANDOM (test code 158.5 MG/DL = 94739) CALC ALBUMIN/CREAT, RND (test 1715 MG/G code = 26089) CULTURE, [id number] 00:00:00 Test Item Value Reference Range Interpretation Comments CULTURE, URINE (test SPECIMEN NUMBER: code = 49618) [id number] CULTURE, [id number] 00:00:00 Test Item Value Reference Range Interpretation Comments CULTURE, URINE (test SPECIMEN NUMBER: code = 19977) [id number] CULTURE, [id number] 00:00:00 Test Item Value Reference Range Interpretation Comments CULTURE, URINE (test SPECIMEN NUMBER: code = 16627) [id number] CULTURE, [id number] 00:00:00 Test Item Value Reference Range Interpretation Comments CULTURE, URINE (test SPECIMEN NUMBER: code = 42359) [id number] CULTURE, [id number] 00:00:00 Test Item Value Reference Range Interpretation Comments CULTURE, URINE (test SPECIMEN NUMBER: code = 97469) [id number] CULTURE, [id number] 00:00:00 Test Item Value Reference Range Interpretation Comments CULTURE, URINE (test SPECIMEN NUMBER: code = 13463) [id number] CULTURE, [id number] 00:00:00 Test Item Value Reference Range Interpretation Comments CULTURE, URINE (test SPECIMEN NUMBER: code = 69680) [id number] CULTURE, [id number] 00:00:00 Test Item Value Reference Range Interpretation Comments CULTURE, URINE (test SPECIMEN NUMBER: code = 61852) [id number] CULTURE, [id number] 00:00:00 Test Item Value Reference Range Interpretation Comments CULTURE, URINE (test SPECIMEN NUMBER: code = 58396) [id number] CULTURE, [id number] 00:00:00 Test Item Value Reference Range Interpretation Comments CULTURE, URINE (test SPECIMEN NUMBER: code = 92623) [id number] CULTURE, [id number] 00:00:00 Test Item Value Reference Range Interpretation Comments CULTURE, URINE (test SPECIMEN NUMBER: code = 27944) [id number] CULTURE, [id number] 00:00:00 Test Item Value Reference Range Interpretation Comments CULTURE, URINE (test SPECIMEN NUMBER: code = 68307) [id number] CULTURE, [id number] 00:00:00 Test Item Value Reference Range Interpretation Comments CULTURE, URINE (test SPECIMEN NUMBER: code = 77748) [id number] CULTURE, [id number] 00:00:00 Test Item Value Reference Range Interpretation Comments CULTURE, URINE (test SPECIMEN NUMBER: code = 63097) [id number] CULTURE, [id number] 00:00:00 Test Item Value Reference Range Interpretation Comments CULTURE, URINE (test SPECIMEN NUMBER: code = 42957) [id number] CULTURE, [id number] 00:00:00 Test Item Value Reference Range Interpretation Comments CULTURE, URINE (test SPECIMEN NUMBER: code = 16024) [id number] CULTURE, [id number] 00:00:00 Test Item Value Reference Range Interpretation Comments CULTURE, URINE (test SPECIMEN NUMBER: code = 65139) [id number] CULTURE, [id number] 00:00:00 Test Item Value Reference Range Interpretation Comments CULTURE, URINE (test SPECIMEN NUMBER: code = 22290) [id number] CULTURE, [id number] 00:00:00 Test Item Value Reference Range Interpretation Comments CULTURE, URINE (test SPECIMEN NUMBER: code = 66682) [id number] CULTURE, [id number] 00:00:00 Test Item Value Reference Range Interpretation Comments CULTURE, URINE (test SPECIMEN NUMBER: code = 36651) [id number] CULTURE, [id number] 00:00:00 Test Item Value Reference Range Interpretation Comments CULTURE, URINE (test SPECIMEN NUMBER: code = 83969) [id number] VAGINAL PATHOGENS DNA [id number] 00:00:00 Test Item Value Reference Range Interpretation Comments ANDIE SPECIES (test code = ) POSITIVE G. VAGINALIS (test code = 51256) NEGATIVE T. VAGINALIS (test code = 37505) NEGATIVE VAGINAL PATHOGENS DNA [id number] 00:00:00 Test Item Value Reference Range Interpretation Comments ANDIE SPECIES (test code = 92225) POSITIVE G. VAGINALIS (test code = 10019) NEGATIVE T. VAGINALIS (test code = 58622) NEGATIVE VAGINAL PATHOGENS DNA [id number] 00:00:00 Test Item Value Reference Range Interpretation Comments ANDIE SPECIES (test code = 24904) POSITIVE G. VAGINALIS (test code = 04228) NEGATIVE T. VAGINALIS (test code = 86742) NEGATIVE VAGINAL PATHOGENS DNA [id number] 00:00:00 Test Item Value Reference Range Interpretation Comments ANDIE SPECIES (test code = ) POSITIVE G. VAGINALIS (test code = 01082) NEGATIVE T. VAGINALIS (test code = 64948) NEGATIVE VAGINAL PATHOGENS DNA [id number] 00:00:00 Test Item Value Reference Range Interpretation Comments ANDIE SPECIES (test code = 87926) POSITIVE G. VAGINALIS (test code = 64651) NEGATIVE T. VAGINALIS (test code = 68688) NEGATIVE VAGINAL PATHOGENS DNA [id number] 00:00:00 Test Item Value Reference Range Interpretation Comments ANDIE SPECIES (test code = 52294) POSITIVE G. VAGINALIS (test code = 57761) NEGATIVE T. VAGINALIS (test code = 51460) NEGATIVE VAGINAL PATHOGENS DNA [id number] 00:00:00 Test Item Value Reference Range Interpretation Comments ANDIE SPECIES (test code = ) POSITIVE G. VAGINALIS (test code = 18757) NEGATIVE T. VAGINALIS (test code = 00866) NEGATIVE VAGINAL PATHOGENS DNA [id number] 00:00:00 Test Item Value Reference Range Interpretation Comments ANDIE SPECIES (test code = ) POSITIVE G. VAGINALIS (test code = 07977) NEGATIVE T. VAGINALIS (test code = 30883) NEGATIVE VAGINAL PATHOGENS DNA [id number] 00:00:00 Test Item Value Reference Range Interpretation Comments ANDIE SPECIES (test code = 70698) POSITIVE G. VAGINALIS (test code = 02421) NEGATIVE T. VAGINALIS (test code = 40065) NEGATIVE VAGINAL PATHOGENS DNA [id number] 00:00:00 Test Item Value Reference Range Interpretation Comments ANDIE SPECIES (test code = 19368) POSITIVE G. VAGINALIS (test code = 58564) NEGATIVE T. VAGINALIS (test code = 21539) NEGATIVE VAGINAL PATHOGENS DNA [id number] 00:00:00 Test Item Value Reference Range Interpretation Comments ANDIE SPECIES (test code = 90647) POSITIVE G. VAGINALIS (test code = 51991) NEGATIVE T. VAGINALIS (test code = 50466) NEGATIVE VAGINAL PATHOGENS DNA [id number] 00:00:00 Test Item Value Reference Range Interpretation Comments ANDIE SPECIES (test code = 73163) POSITIVE G. VAGINALIS (test code = 40082) NEGATIVE T. VAGINALIS (test code = 82565) NEGATIVE VAGINAL PATHOGENS DNA [id number] 00:00:00 Test Item Value Reference Range Interpretation Comments ANDIE SPECIES (test code = 62513) POSITIVE G. VAGINALIS (test code = 58759) NEGATIVE T. VAGINALIS (test code = 73691) NEGATIVE VAGINAL PATHOGENS DNA [id number] 00:00:00 Test Item Value Reference Range Interpretation Comments ANDIE SPECIES (test code = 74466) POSITIVE G. VAGINALIS (test code = 90371) NEGATIVE T. VAGINALIS (test code = 41383) NEGATIVE VAGINAL PATHOGENS DNA [id number] 00:00:00 Test Item Value Reference Range Interpretation Comments ANDIE SPECIES (test code = 15647) POSITIVE G. VAGINALIS (test code = 17875) NEGATIVE T. VAGINALIS (test code = 87339) NEGATIVE VAGINAL PATHOGENS DNA [id number] 00:00:00 Test Item Value Reference Range Interpretation Comments ANDIE SPECIES (test code = 28656) POSITIVE G. VAGINALIS (test code = 90579) NEGATIVE T. VAGINALIS (test code = 25539) NEGATIVE VAGINAL PATHOGENS DNA [id number] 00:00:00 Test Item Value Reference Range Interpretation Comments ANDIE SPECIES (test code = 75306) POSITIVE G. VAGINALIS (test code = 54632) NEGATIVE T. VAGINALIS (test code = 53187) NEGATIVE VAGINAL PATHOGENS DNA [id number] 00:00:00 Test Item Value Reference Range Interpretation Comments ANDIE SPECIES (test code = 21470) POSITIVE G. VAGINALIS (test code = 04850) NEGATIVE T. VAGINALIS (test code = 34447) NEGATIVE VAGINAL PATHOGENS DNA [id number] 00:00:00 Test Item Value Reference Range Interpretation Comments ANDIE SPECIES (test code = 40629) POSITIVE G. VAGINALIS (test code = 45878) NEGATIVE T. VAGINALIS (test code = 97594) NEGATIVE VAGINAL PATHOGENS DNA [id number] 00:00:00 Test Item Value Reference Range Interpretation Comments ANDIE SPECIES (test code = 00059) POSITIVE G. VAGINALIS (test code = 93713) NEGATIVE T. VAGINALIS (test code = 94009) NEGATIVE VAGINAL PATHOGENS DNA [id number] 00:00:00 Test Item Value Reference Range Interpretation Comments ANDIE SPECIES (test code = 76226) POSITIVE G. VAGINALIS (test code = 15810) NEGATIVE T. VAGINALIS (test code = 59708) NEGATIVE VAGINAL PATHOGENS DNA [id number] 00:00:00 Test Item Value Reference Range Interpretation Comments ANDIE SPECIES (test code = 52674) NEGATIVE G. VAGINALIS (test code = 29217) NEGATIVE T. VAGINALIS (test code = 46592) NEGATIVE VAGINAL PATHOGENS DNA [id number] 00:00:00 Test Item Value Reference Range Interpretation Comments ANDIE SPECIES (test code = 77514) NEGATIVE G. VAGINALIS (test code = 78123) NEGATIVE T. VAGINALIS (test code = 07954) NEGATIVE VAGINAL PATHOGENS DNA [id number] 00:00:00 Test Item Value Reference Range Interpretation Comments ANDIE SPECIES (test code = 06857) NEGATIVE G. VAGINALIS (test code = 14826) NEGATIVE T. VAGINALIS (test code = 27799) NEGATIVE VAGINAL PATHOGENS DNA [id number] 00:00:00 Test Item Value Reference Range Interpretation Comments ANDIE SPECIES (test code = 85947) NEGATIVE G. VAGINALIS (test code = 56825) NEGATIVE T. VAGINALIS (test code = 51006) NEGATIVE VAGINAL PATHOGENS DNA [id number] 00:00:00 Test Item Value Reference Range Interpretation Comments ADNIE SPECIES (test code = 52864) NEGATIVE G. VAGINALIS (test code = 33972) NEGATIVE T. VAGINALIS (test code = 32768) NEGATIVE VAGINAL PATHOGENS DNA [id number] 00:00:00 Test Item Value Reference Range Interpretation Comments ANDIE SPECIES (test code = 22962) NEGATIVE G. VAGINALIS (test code = 78995) NEGATIVE T. VAGINALIS (test code = 91100) NEGATIVE VAGINAL PATHOGENS DNA [id number] 00:00:00 Test Item Value Reference Range Interpretation Comments ANDIE SPECIES (test code = 48579) NEGATIVE G. VAGINALIS (test code = 84806) NEGATIVE T. VAGINALIS (test code = 13046) NEGATIVE VAGINAL PATHOGENS DNA [id number] 00:00:00 Test Item Value Reference Range Interpretation Comments ANDIE SPECIES (test code = 37731) NEGATIVE G. VAGINALIS (test code = 28338) NEGATIVE T. VAGINALIS (test code = 72260) NEGATIVE VAGINAL PATHOGENS DNA [id number] 00:00:00 Test Item Value Reference Range Interpretation Comments ANDIE SPECIES (test code = 93449) NEGATIVE G. VAGINALIS (test code = 03982) NEGATIVE T. VAGINALIS (test code = 00510) NEGATIVE VAGINAL PATHOGENS DNA [id number] 00:00:00 Test Item Value Reference Range Interpretation Comments ANDIE SPECIES (test code = 83804) NEGATIVE G. VAGINALIS (test code = 68752) NEGATIVE T. VAGINALIS (test code = 03638) NEGATIVE VAGINAL PATHOGENS DNA [id number] 00:00:00 Test Item Value Reference Range Interpretation Comments ANDIE SPECIES (test code = 49420) NEGATIVE G. VAGINALIS (test code = 75375) NEGATIVE T. VAGINALIS (test code = 26074) NEGATIVE VAGINAL PATHOGENS DNA [id number] 00:00:00 Test Item Value Reference Range Interpretation Comments ANDIE SPECIES (test code = 12070) NEGATIVE G. VAGINALIS (test code = 28673) NEGATIVE T. VAGINALIS (test code = 29429) NEGATIVE VAGINAL PATHOGENS DNA [id number] 00:00:00 Test Item Value Reference Range Interpretation Comments ANDIE SPECIES (test code = 47788) NEGATIVE G. VAGINALIS (test code = 61953) NEGATIVE T. VAGINALIS (test code = 40728) NEGATIVE VAGINAL PATHOGENS DNA [id number] 00:00:00 Test Item Value Reference Range Interpretation Comments ANDIE SPECIES (test code = 15460) NEGATIVE G. VAGINALIS (test code = 85712) NEGATIVE T. VAGINALIS (test code = 42723) NEGATIVE VAGINAL PATHOGENS DNA [id number] 00:00:00 Test Item Value Reference Range Interpretation Comments ANDIE SPECIES (test code = 44663) NEGATIVE G. VAGINALIS (test code = 22781) NEGATIVE T. VAGINALIS (test code = 37115) NEGATIVE VAGINAL PATHOGENS DNA [id number] 00:00:00 Test Item Value Reference Range Interpretation Comments ANDIE SPECIES (test code = 74072) NEGATIVE G. VAGINALIS (test code = 40667) NEGATIVE T. VAGINALIS (test code = 61102) NEGATIVE VAGINAL PATHOGENS DNA [id number] 00:00:00 Test Item Value Reference Range Interpretation Comments ANDIE SPECIES (test code = 43333) NEGATIVE G. VAGINALIS (test code = 50587) NEGATIVE T. VAGINALIS (test code = 16911) NEGATIVE VAGINAL PATHOGENS DNA [id number] 00:00:00 Test Item Value Reference Range Interpretation Comments ANDIE SPECIES (test code = 96984) NEGATIVE G. VAGINALIS (test code = 12510) NEGATIVE T. VAGINALIS (test code = 14445) NEGATIVE VAGINAL PATHOGENS DNA [id number] 00:00:00 Test Item Value Reference Range Interpretation Comments ANDIE SPECIES (test code = 02677) NEGATIVE G. VAGINALIS (test code = 99023) NEGATIVE T. VAGINALIS (test code = 12587) NEGATIVE VAGINAL PATHOGENS DNA [id number] 00:00:00 Test Item Value Reference Range Interpretation Comments ANDIE SPECIES (test code = 68348) NEGATIVE G. VAGINALIS (test code = 27654) NEGATIVE T. VAGINALIS (test code = 53559) NEGATIVE VAGINAL PATHOGENS DNA [id number] 00:00:00 Test Item Value Reference Range Interpretation Comments ANDIE SPECIES (test code = 72290) NEGATIVE G. VAGINALIS (test code = 81716) NEGATIVE T. VAGINALIS (test code = 19259) NEGATIVE VAGINAL PATHOGENS DNA [id number] 00:00:00 Test Item Value Reference Range Interpretation Comments ANDIE SPECIES (test code = 26655) NEGATIVE G. VAGINALIS (test code = 75369) POSITIVE T. VAGINALIS (test code = 19410) NEGATIVE VAGINAL PATHOGENS DNA [id number] 00:00:00 Test Item Value Reference Range Interpretation Comments ANDIE SPECIES (test code = 03717) NEGATIVE G. VAGINALIS (test code = 71541) POSITIVE T. VAGINALIS (test code = 67235) NEGATIVE VAGINAL PATHOGENS DNA [id number] 00:00:00 Test Item Value Reference Range Interpretation Comments ANDIE SPECIES (test code = 81879) NEGATIVE G. VAGINALIS (test code = 72338) POSITIVE T. VAGINALIS (test code = 76705) NEGATIVE VAGINAL PATHOGENS DNA [id number] 00:00:00 Test Item Value Reference Range Interpretation Comments ANDIE SPECIES (test code = 25333) NEGATIVE G. VAGINALIS (test code = 54858) POSITIVE T. VAGINALIS (test code = 96912) NEGATIVE VAGINAL PATHOGENS DNA [id number] 00:00:00 Test Item Value Reference Range Interpretation Comments ANDIE SPECIES (test code = 93870) NEGATIVE G. VAGINALIS (test code = 48237) POSITIVE T. VAGINALIS (test code = 56758) NEGATIVE VAGINAL PATHOGENS DNA [id number] 00:00:00 Test Item Value Reference Range Interpretation Comments ANDIE SPECIES (test code = 99742) NEGATIVE G. VAGINALIS (test code = 94560) POSITIVE T. VAGINALIS (test code = 48686) NEGATIVE VAGINAL PATHOGENS DNA [id number] 00:00:00 Test Item Value Reference Range Interpretation Comments ANDIE SPECIES (test code = 51465) NEGATIVE G. VAGINALIS (test code = 09123) POSITIVE T. VAGINALIS (test code = 57120) NEGATIVE VAGINAL PATHOGENS DNA [id number] 00:00:00 Test Item Value Reference Range Interpretation Comments ANDIE SPECIES (test code = 73284) NEGATIVE G. VAGINALIS (test code = 67045) POSITIVE T. VAGINALIS (test code = 77568) NEGATIVE VAGINAL PATHOGENS DNA [id number] 00:00:00 Test Item Value Reference Range Interpretation Comments ANDIE SPECIES (test code = 47048) NEGATIVE G. VAGINALIS (test code = 46426) POSITIVE T. VAGINALIS (test code = 54752) NEGATIVE VAGINAL PATHOGENS DNA [id number] 00:00:00 Test Item Value Reference Range Interpretation Comments ANDIE SPECIES (test code = 87277) NEGATIVE G. VAGINALIS (test code = 01877) POSITIVE T. VAGINALIS (test code = 22614) NEGATIVE VAGINAL PATHOGENS DNA [id number] 00:00:00 Test Item Value Reference Range Interpretation Comments ANDIE SPECIES (test code = 15928) NEGATIVE G. VAGINALIS (test code = 95601) POSITIVE T. VAGINALIS (test code = 77077) NEGATIVE VAGINAL PATHOGENS DNA [id number] 00:00:00 Test Item Value Reference Range Interpretation Comments ANDIE SPECIES (test code = 88147) NEGATIVE G. VAGINALIS (test code = 99570) POSITIVE T. VAGINALIS (test code = 90387) NEGATIVE VAGINAL PATHOGENS DNA [id number] 00:00:00 Test Item Value Reference Range Interpretation Comments ANDIE SPECIES (test code = 59183) NEGATIVE G. VAGINALIS (test code = 70969) POSITIVE T. VAGINALIS (test code = 25263) NEGATIVE VAGINAL PATHOGENS DNA [id number] 00:00:00 Test Item Value Reference Range Interpretation Comments ANDIE SPECIES (test code = 82492) NEGATIVE G. VAGINALIS (test code = 25020) POSITIVE T. VAGINALIS (test code = 79465) NEGATIVE VAGINAL PATHOGENS DNA [id number] 00:00:00 Test Item Value Reference Range Interpretation Comments ANDIE SPECIES (test code = 06286) NEGATIVE G. VAGINALIS (test code = 23336) POSITIVE T. VAGINALIS (test code = 76662) NEGATIVE VAGINAL PATHOGENS DNA [id number] 00:00:00 Test Item Value Reference Range Interpretation Comments ANDIE SPECIES (test code = 00078) NEGATIVE G. VAGINALIS (test code = 14855) POSITIVE T. VAGINALIS (test code = 54325) NEGATIVE VAGINAL PATHOGENS DNA [id number] 00:00:00 Test Item Value Reference Range Interpretation Comments ANDIE SPECIES (test code = 95272) NEGATIVE G. VAGINALIS (test code = 90666) POSITIVE T. VAGINALIS (test code = 47456) NEGATIVE VAGINAL PATHOGENS DNA [id number] 00:00:00 Test Item Value Reference Range Interpretation Comments ANDIE SPECIES (test code = 84059) NEGATIVE G. VAGINALIS (test code = 65453) POSITIVE T. VAGINALIS (test code = 64416) NEGATIVE VAGINAL PATHOGENS DNA [id number] 00:00:00 Test Item Value Reference Range Interpretation Comments ANDIE SPECIES (test code = 09379) NEGATIVE G. VAGINALIS (test code = 17396) POSITIVE T. VAGINALIS (test code = 20586) NEGATIVE VAGINAL PATHOGENS DNA [id number] 00:00:00 Test Item Value Reference Range Interpretation Comments ANDIE SPECIES (test code = 99029) NEGATIVE G. VAGINALIS (test code = 83344) POSITIVE T. VAGINALIS (test code = 96738) NEGATIVE VAGINAL PATHOGENS DNA [id number] 00:00:00 Test Item Value Reference Range Interpretation Comments ANDIE SPECIES (test code = 65146) NEGATIVE G. VAGINALIS (test code = 44877) POSITIVE T. VAGINALIS (test code = 70045) NEGATIVE COMPREHENSIVE METABOLIC [id number] 00:00:00 Test Item Value Reference Range Interpretation Comments GLUCOSE (test code = 2217) 353 MG/DL BUN (test code = 2208) 27 MG/DL CREATININE (test code = 2214) 0.90 MG/DL eGFR AMER. (test code 92 ML/MIN/1.73 = 82943) eGFR NON- AMER. (test 79 ML/MIN/1.73 code = 88275) CALC BUN/CREAT (test code = 30 RATIO [...] code = 2219) 18 U/L COMPREHENSIVE METABOLIC [id number] 00:00:00 Test Item Value Reference Range Interpretation Comments GLUCOSE (test code = 2217) 353 MG/DL BUN (test code = 2208) 27 MG/DL CREATININE (test code = 2214) 0.90 MG/DL eGFR AMER. (test code 92 ML/MIN/1.73 = 29122) eGFR NON- AMER. (test 79 ML/MIN/1.73 code = 85670) CALC BUN/CREAT (test code = 30 RATIO [...] (test code = 2219) 18 U/L LIPID [id number] 00:00:00 Test Item Value Reference Range Interpretation Comments CHOLESTEROL (test code = 2210) 412 MG/DL TRIGLYCERIDES (test code = 2232) 2520 MG/DL HDL CHOLESTEROL (test code = 16 MG/DL 2220) CALC LDL CHOL (test code = 2237) NOTE MG/DL RISK RATIO LDL/HDL (test code = (NOTE) RATIO 2238) LIPID [id number] 00:00:00 Test Item Value Reference Range Interpretation Comments CHOLESTEROL (test code = 2210) 412 MG/DL TRIGLYCERIDES (test code = 2232) 2520 MG/DL HDL CHOLESTEROL (test code = 16 MG/DL 2220) CALC LDL CHOL (test code = 2237) NOTE MG/DL RISK RATIO LDL/HDL (test code = (NOTE) RATIO 2238) HEMOGLOBIN [id number] 00:00:00 Test Item Value Reference Range Interpretation Comments HEMOGLOBIN A1c (test code = 19703) 10.7 % HEMOGLOBIN [id number] 00:00:00 Test Item Value Reference Range Interpretation Comments HEMOGLOBIN A1c (test code = 48713) 10.7 % HEMOGLOBIN [id number] 00:00:00 Test Item Value Reference Range Interpretation Comments HEMOGLOBIN A1c (test code = 64941) 10.7 % [id number] 00:00:00 Test Item Value Reference Range Interpretation Comments TSH, THIRD GENERATION (test code 0.777 UIU/ML = 2821) [id number] 00:00:00 Test Item Value Reference Range Interpretation Comments TSH, THIRD GENERATION (test code 0.777 UIU/ML = 2821) [id number] 00:00:00 Test Item Value Reference Range Interpretation Comments TSH, THIRD GENERATION (test code 0.777 UIU/ML = 2821) MICROALBUMIN/CREATININE, RANDOM AND [id number] 00:00:00 Test Item Value Reference Range Interpretation Comments CREATININE, URINE, CONC. (test 127.3 MG/DL code = 2072) ALBUMIN, URINE, RANDOM (test code 65.2 MG/DL = 61649) CALC ALBUMIN/CREAT, RND (test 512 MG/G code = 81189) MICROALBUMIN/CREATININE, RANDOM AND [id number] 00:00:00 Test Item Value Reference Range Interpretation Comments CREATININE, URINE, CONC. (test 127.3 MG/DL code = 2072) ALBUMIN, URINE, RANDOM (test code 65.2 MG/DL = 43301) CALC ALBUMIN/CREAT, RND (test 512 MG/G code = 93865) COMPREHENSIVE METABOLIC [id number] 00:00:00 Test Item Value Reference Range Interpretation Comments GLUCOSE (test code = 2217) 353 MG/DL BUN (test code = 2208) 27 MG/DL CREATININE (test code = 2214) 0.90 MG/DL eGFR AMER. (test code 92 ML/MIN/1.73 = 17206) eGFR NON- AMER. (test 79 ML/MIN/1.73 code = 03133) CALC BUN/CREAT (test code = 30 RATIO [...] code = 2219) 18 U/L COMPREHENSIVE METABOLIC [id number] 00:00:00 Test Item Value Reference Range Interpretation Comments GLUCOSE (test code = 2217) 353 MG/DL BUN (test code = 2208) 27 MG/DL CREATININE (test code = 2214) 0.90 MG/DL eGFR AMER. (test code 92 ML/MIN/1.73 = 15927) eGFR NON- AMER. (test 79 ML/MIN/1.73 code = 77609) CALC BUN/CREAT (test code = 30 RATIO [...] (test code = 2219) 18 U/L LIPID [id number] 00:00:00 Test Item Value Reference Range Interpretation Comments CHOLESTEROL (test code = 2210) 412 MG/DL TRIGLYCERIDES (test code = 2232) 2520 MG/DL HDL CHOLESTEROL (test code = 16 MG/DL 2220) CALC LDL CHOL (test code = 2237) NOTE MG/DL RISK RATIO LDL/HDL (test code = (NOTE) RATIO 2238) LIPID [id number] 00:00:00 Test Item Value Reference Range Interpretation Comments CHOLESTEROL (test code = 2210) 412 MG/DL TRIGLYCERIDES (test code = 2232) 2520 MG/DL HDL CHOLESTEROL (test code = 16 MG/DL 2220) CALC LDL CHOL (test code = 2237) NOTE MG/DL RISK RATIO LDL/HDL (test code = (NOTE) RATIO 2238) HEMOGLOBIN [id number] 00:00:00 Test Item Value Reference Range Interpretation Comments HEMOGLOBIN A1c (test code = 92724) 10.7 % HEMOGLOBIN [id number] 00:00:00 Test Item Value Reference Range Interpretation Comments HEMOGLOBIN A1c (test code = 38320) 10.7 % HEMOGLOBIN [id number] 00:00:00 Test Item Value Reference Range Interpretation Comments HEMOGLOBIN A1c (test code = 84521) 10.7 % [id number] 00:00:00 Test Item Value Reference Range Interpretation Comments TSH, THIRD GENERATION (test code 0.777 UIU/ML = 2821) [id number] 00:00:00 Test Item Value Reference Range Interpretation Comments TSH, THIRD GENERATION (test code 0.777 UIU/ML = 2821) [id number] 00:00:00 Test Item Value Reference Range Interpretation Comments TSH, THIRD GENERATION (test code 0.777 UIU/ML = 2821) MICROALBUMIN/CREATININE, RANDOM AND [id number] 00:00:00 Test Item Value Reference Range Interpretation Comments CREATININE, URINE, CONC. (test 127.3 MG/DL code = 2072) ALBUMIN, URINE, RANDOM (test code 65.2 MG/DL = 98639) CALC ALBUMIN/CREAT, RND (test 512 MG/G code = 40914) MICROALBUMIN/CREATININE, RANDOM AND [id number] 00:00:00 Test Item Value Reference Range Interpretation Comments CREATININE, URINE, CONC. (test 127.3 MG/DL code = 2072) ALBUMIN, URINE, RANDOM (test code 65.2 MG/DL = 25024) CALC ALBUMIN/CREAT, RND (test 512 MG/G code = 41638) COMPREHENSIVE METABOLIC [id number] 00:00:00 Test Item Value Reference Range Interpretation Comments GLUCOSE (test code = 2217) 353 MG/DL BUN (test code = 2208) 27 MG/DL CREATININE (test code = 2214) 0.90 MG/DL eGFR AMER. (test code 92 ML/MIN/1.73 = 10260) eGFR NON- AMER. (test 79 ML/MIN/1.73 code = 51928) CALC BUN/CREAT (test code = 30 RATIO [...] code = 2219) 18 U/L COMPREHENSIVE METABOLIC [id number] 00:00:00 Test Item Value Reference Range Interpretation Comments GLUCOSE (test code = 2217) 353 MG/DL BUN (test code = 2208) 27 MG/DL CREATININE (test code = 2214) 0.90 MG/DL eGFR AMER. (test code 92 ML/MIN/1.73 = 18290) eGFR NON- AMER. (test 79 ML/MIN/1.73 code = 01706) CALC BUN/CREAT (test code = 30 RATIO [...] (test code = 2219) 18 U/L LIPID [id number] 00:00:00 Test Item Value Reference Range Interpretation Comments CHOLESTEROL (test code = 2210) 412 MG/DL TRIGLYCERIDES (test code = 2232) 2520 MG/DL HDL CHOLESTEROL (test code = 16 MG/DL 2220) CALC LDL CHOL (test code = 2237) NOTE MG/DL RISK RATIO LDL/HDL (test code = (NOTE) RATIO 2238) LIPID [id number] 00:00:00 Test Item Value Reference Range Interpretation Comments CHOLESTEROL (test code = 2210) 412 MG/DL TRIGLYCERIDES (test code = 2232) 2520 MG/DL HDL CHOLESTEROL (test code = 16 MG/DL 2220) CALC LDL CHOL (test code = 2237) NOTE MG/DL RISK RATIO LDL/HDL (test code = (NOTE) RATIO 2238) HEMOGLOBIN [id number] 00:00:00 Test Item Value Reference Range Interpretation Comments HEMOGLOBIN A1c (test code = 32188) 10.7 % HEMOGLOBIN [id number] 00:00:00 Test Item Value Reference Range Interpretation Comments HEMOGLOBIN A1c (test code = 57904) 10.7 % HEMOGLOBIN [id number] 00:00:00 Test Item Value Reference Range Interpretation Comments HEMOGLOBIN A1c (test code = 91366) 10.7 % [id number] 00:00:00 Test Item Value Reference Range Interpretation Comments TSH, THIRD GENERATION (test code 0.777 UIU/ML = 2821) [id number] 00:00:00 Test Item Value Reference Range Interpretation Comments TSH, THIRD GENERATION (test code 0.777 UIU/ML = 2821) [id number] 00:00:00 Test Item Value Reference Range Interpretation Comments TSH, THIRD GENERATION (test code 0.777 UIU/ML = 2821) MICROALBUMIN/CREATININE, RANDOM AND [id number] 00:00:00 Test Item Value Reference Range Interpretation Comments CREATININE, URINE, CONC. (test 127.3 MG/DL code = 2072) ALBUMIN, URINE, RANDOM (test code 65.2 MG/DL = 52369) CALC ALBUMIN/CREAT, RND (test 512 MG/G code = 01740) MICROALBUMIN/CREATININE, RANDOM AND [id number] 00:00:00 Test Item Value Reference Range Interpretation Comments CREATININE, URINE, CONC. (test 127.3 MG/DL code = 2072) ALBUMIN, URINE, RANDOM (test code 65.2 MG/DL = 10447) CALC ALBUMIN/CREAT, RND (test 512 MG/G code = 51317) COMPREHENSIVE METABOLIC [id number] 00:00:00 Test Item Value Reference Range Interpretation Comments GLUCOSE (test code = 2217) 353 MG/DL BUN (test code = 2208) 27 MG/DL CREATININE (test code = 2214) 0.90 MG/DL eGFR AMER. (test code 92 ML/MIN/1.73 = 85403) eGFR NON- AMER. (test 79 ML/MIN/1.73 code = 11399) CALC BUN/CREAT (test code = 30 RATIO [...] code = 2219) 18 U/L COMPREHENSIVE METABOLIC [id number] 00:00:00 Test Item Value Reference Range Interpretation Comments GLUCOSE (test code = 2217) 353 MG/DL BUN (test code = 2208) 27 MG/DL CREATININE (test code = 2214) 0.90 MG/DL eGFR AMER. (test code 92 ML/MIN/1.73 = 76159) eGFR NON- AMER. (test 79 ML/MIN/1.73 code = 28455) CALC BUN/CREAT (test code = 30 RATIO [...] = 0.3 MG/DL 7) ALKALINE PHOSPHATASE (test 59 U/L code = 2204) AST (test code = 2218) 13 U/L ALT (test code = 2219) 18 U/L LIPID [id number] 00:00:00 Test Item Value Reference Range Interpretation Comments CHOLESTEROL (test code = 2210) 412 MG/DL TRIGLYCERIDES (test code = 2232) 2520 MG/DL HDL CHOLESTEROL (test code = 16 MG/DL 2220) CALC LDL CHOL (test code = 2237) NOTE MG/DL RISK RATIO LDL/HDL (test code = (NOTE) RATIO 2238) LIPID [id number] 00:00:00 Test Item Value Reference Range Interpretation Comments CHOLESTEROL (test code = 2210) 412 MG/DL TRIGLYCERIDES (test code = 2232) 2520 MG/DL HDL CHOLESTEROL (test code = 16 MG/DL 2220) CALC LDL CHOL (test code = 2237) NOTE MG/DL RISK RATIO LDL/HDL (test code = (NOTE) RATIO 2238) HEMOGLOBIN [id number] 00:00:00 Test Item Value Reference Range Interpretation Comments HEMOGLOBIN A1c (test code = 33966) 10.7 % HEMOGLOBIN [id number] 00:00:00 Test Item Value Reference Range Interpretation Comments HEMOGLOBIN A1c (test code = 23337) 10.7 % HEMOGLOBIN [id number] 00:00:00 Test Item Value Reference Range Interpretation Comments HEMOGLOBIN A1c (test code = 84447) 10.7 % [id number] 00:00:00 Test Item Value Reference Range Interpretation Comments TSH, THIRD GENERATION (test code 0.777 UIU/ML = 2821) [id number] 00:00:00 Test Item Value Reference Range Interpretation Comments TSH, THIRD GENERATION (test code 0.777 UIU/ML = 2821) [id number] 00:00:00 Test Item Value Reference Range Interpretation Comments TSH, THIRD GENERATION (test code 0.777 UIU/ML = 2821) MICROALBUMIN/CREATININE, RANDOM AND [id number] 00:00:00 Test Item Value Reference Range Interpretation Comments CREATININE, URINE, CONC. (test 127.3 MG/DL code = 2072) ALBUMIN, URINE, RANDOM (test code 65.2 MG/DL = 53069) CALC ALBUMIN/CREAT, RND (test 512 MG/G code = 97010) MICROALBUMIN/CREATININE, RANDOM AND [id number] 00:00:00 Test Item Value Reference Range Interpretation Comments CREATININE, URINE, CONC. (test 127.3 MG/DL code = 2072) ALBUMIN, URINE, RANDOM (test code 65.2 MG/DL = 86685) CALC ALBUMIN/CREAT, RND (test 512 MG/G code = 07285) COMPREHENSIVE METABOLIC [id number] 00:00:00 Test Item Value Reference Range Interpretation Comments GLUCOSE (test code = 2217) 353 MG/DL BUN (test code = 2208) 27 MG/DL CREATININE (test code = 2214) 0.90 MG/DL eGFR AMER. (test code 92 ML/MIN/1.73 = 01081) eGFR NON- AMER. (test 79 ML/MIN/1.73 code = 20073) CALC BUN/CREAT (test code = 30 RATIO [...] code = 2219) 18 U/L COMPREHENSIVE METABOLIC [id number] 00:00:00 Test Item Value Reference Range Interpretation Comments GLUCOSE (test code = 2217) 353 MG/DL BUN (test code = 2208) 27 MG/DL CREATININE (test code = 2214) 0.90 MG/DL eGFR AMER. (test code 92 ML/MIN/1.73 = 37974) eGFR NON- AMER. (test 79 ML/MIN/1.73 code = 74363) CALC BUN/CREAT (test code = 30 RATIO [...] (test code = 2219) 18 U/L LIPID [id number] 00:00:00 Test Item Value Reference Range Interpretation Comments CHOLESTEROL (test code = 2210) 412 MG/DL TRIGLYCERIDES (test code = 2232) 2520 MG/DL HDL CHOLESTEROL (test code = 16 MG/DL 2220) CALC LDL CHOL (test code = 2237) NOTE MG/DL RISK RATIO LDL/HDL (test code = (NOTE) RATIO 2238) LIPID [id number] 00:00:00 Test Item Value Reference Range Interpretation Comments CHOLESTEROL (test code = 2210) 412 MG/DL TRIGLYCERIDES (test code = 2232) 2520 MG/DL HDL CHOLESTEROL (test code = 16 MG/DL 2220) CALC LDL CHOL (test code = 2237) NOTE MG/DL RISK RATIO LDL/HDL (test code = (NOTE) RATIO 2238) HEMOGLOBIN [id number] 00:00:00 Test Item Value Reference Range Interpretation Comments HEMOGLOBIN A1c (test code = 41989) 10.7 % HEMOGLOBIN [id number] 00:00:00 Test Item Value Reference Range Interpretation Comments HEMOGLOBIN A1c (test code = 37194) 10.7 % HEMOGLOBIN [id number] 00:00:00 Test Item Value Reference Range Interpretation Comments HEMOGLOBIN A1c (test code = 14355) 10.7 % [id number] 00:00:00 Test Item Value Reference Range Interpretation Comments TSH, THIRD GENERATION (test code 0.777 UIU/ML = 2821) [id number] 00:00:00 Test Item Value Reference Range Interpretation Comments TSH, THIRD GENERATION (test code 0.777 UIU/ML = 2821) [id number] 00:00:00 Test Item Value Reference Range Interpretation Comments TSH, THIRD GENERATION (test code 0.777 UIU/ML = 2821) MICROALBUMIN/CREATININE, RANDOM AND [id number] 00:00:00 Test Item Value Reference Range Interpretation Comments CREATININE, URINE, CONC. (test 127.3 MG/DL code = 2072) ALBUMIN, URINE, RANDOM (test code 65.2 MG/DL = 30971) CALC ALBUMIN/CREAT, RND (test 512 MG/G code = 40885) MICROALBUMIN/CREATININE, RANDOM AND [id number] 00:00:00 Test Item Value Reference Range Interpretation Comments CREATININE, URINE, CONC. (test 127.3 MG/DL code = 2072) ALBUMIN, URINE, RANDOM (test code 65.2 MG/DL = 53475) CALC ALBUMIN/CREAT, RND (test 512 MG/G code = 52691) COMPREHENSIVE METABOLIC [id number] 00:00:00 Test Item Value Reference Range Interpretation Comments GLUCOSE (test code = 2217) 353 MG/DL BUN (test code = 2208) 27 MG/DL CREATININE (test code = 2214) 0.90 MG/DL eGFR AMER. (test code 92 ML/MIN/1.73 = 07776) eGFR NON- AMER. (test 79 ML/MIN/1.73 code = 70502) CALC BUN/CREAT (test code = 30 RATIO [...] code = 2219) 18 U/L COMPREHENSIVE METABOLIC [id number] 00:00:00 Test Item Value Reference Range Interpretation Comments GLUCOSE (test code = 2217) 353 MG/DL BUN (test code = 2208) 27 MG/DL CREATININE (test code = 2214) 0.90 MG/DL eGFR AMER. (test code 92 ML/MIN/1.73 = 43882) eGFR NON- AMER. (test 79 ML/MIN/1.73 code = 15106) CALC BUN/CREAT (test code = 30 RATIO [...] (test code = 2219) 18 U/L LIPID [id number] 00:00:00 Test Item Value Reference Range Interpretation Comments CHOLESTEROL (test code = 2210) 412 MG/DL TRIGLYCERIDES (test code = 2232) 2520 MG/DL HDL CHOLESTEROL (test code = 16 MG/DL 2220) CALC LDL CHOL (test code = 2237) NOTE MG/DL RISK RATIO LDL/HDL (test code = (NOTE) RATIO 2238) LIPID [id number] 00:00:00 Test Item Value Reference Range Interpretation Comments CHOLESTEROL (test code = 2210) 412 MG/DL TRIGLYCERIDES (test code = 2232) 2520 MG/DL HDL CHOLESTEROL (test code = 16 MG/DL 2220) CALC LDL CHOL (test code = 2237) NOTE MG/DL RISK RATIO LDL/HDL (test code = (NOTE) RATIO 2238) HEMOGLOBIN [id number] 00:00:00 Test Item Value Reference Range Interpretation Comments HEMOGLOBIN A1c (test code = 95898) 10.7 % HEMOGLOBIN [id number] 00:00:00 Test Item Value Reference Range Interpretation Comments HEMOGLOBIN A1c (test code = 88433) 10.7 % HEMOGLOBIN [id number] 00:00:00 Test Item Value Reference Range Interpretation Comments HEMOGLOBIN A1c (test code = 09057) 10.7 % [id number] 00:00:00 Test Item Value Reference Range Interpretation Comments TSH, THIRD GENERATION (test code 0.777 UIU/ML = 2821) [id number] 00:00:00 Test Item Value Reference Range Interpretation Comments TSH, THIRD GENERATION (test code 0.777 UIU/ML = 2821) [id number] 00:00:00 Test Item Value Reference Range Interpretation Comments TSH, THIRD GENERATION (test code 0.777 UIU/ML = 2821) MICROALBUMIN/CREATININE, RANDOM AND [id number] 00:00:00 Test Item Value Reference Range Interpretation Comments CREATININE, URINE, CONC. (test 127.3 MG/DL code = 2072) ALBUMIN, URINE, RANDOM (test code 65.2 MG/DL = 01769) CALC ALBUMIN/CREAT, RND (test 512 MG/G code = 29882) MICROALBUMIN/CREATININE, RANDOM AND [id number] 00:00:00 Test Item Value Reference Range Interpretation Comments CREATININE, URINE, CONC. (test 127.3 MG/DL code = 2072) ALBUMIN, URINE, RANDOM (test code 65.2 MG/DL = 14183) CALC ALBUMIN/CREAT, RND (test 512 MG/G code = 70462) COMPREHENSIVE METABOLIC [id number] 00:00:00 Test Item Value Reference Range Interpretation Comments GLUCOSE (test code = 2217) 353 MG/DL BUN (test code = 2208) 27 MG/DL CREATININE (test code = 2214) 0.90 MG/DL eGFR AMER. (test code 92 ML/MIN/1.73 = 61680) eGFR NON- AMER. (test 79 ML/MIN/1.73 code = 86645) CALC BUN/CREAT (test code = 30 RATIO [...] code = 2219) 18 U/L COMPREHENSIVE METABOLIC [id number] 00:00:00 Test Item Value Reference Range Interpretation Comments GLUCOSE (test code = 2217) 353 MG/DL BUN (test code = 2208) 27 MG/DL CREATININE (test code = 2214) 0.90 MG/DL eGFR AMER. (test code 92 ML/MIN/1.73 = 58577) eGFR NON- AMER. (test 79 ML/MIN/1.73 code = 94562) CALC BUN/CREAT (test code = 30 RATIO [...] (test code = 2219) 18 U/L LIPID [id number] 00:00:00 Test Item Value Reference Range Interpretation Comments CHOLESTEROL (test code = 2210) 412 MG/DL TRIGLYCERIDES (test code = 2232) 2520 MG/DL HDL CHOLESTEROL (test code = 16 MG/DL 2220) CALC LDL CHOL (test code = 2237) NOTE MG/DL RISK RATIO LDL/HDL (test code = (NOTE) RATIO 2238) LIPID [id number] 00:00:00 Test Item Value Reference Range Interpretation Comments CHOLESTEROL (test code = 2210) 412 MG/DL TRIGLYCERIDES (test code = 2232) 2520 MG/DL HDL CHOLESTEROL (test code = 16 MG/DL 2220) CALC LDL CHOL (test code = 2237) NOTE MG/DL RISK RATIO LDL/HDL (test code = (NOTE) RATIO 2238) HEMOGLOBIN [id number] 00:00:00 Test Item Value Reference Range Interpretation Comments HEMOGLOBIN A1c (test code = 09513) 10.7 % HEMOGLOBIN [id number] 00:00:00 Test Item Value Reference Range Interpretation Comments HEMOGLOBIN A1c (test code = 58258) 10.7 % COMPREHENSIVE METABOLIC [id number] 00:00:00 Test Item Value Reference Range Interpretation Comments GLUCOSE (test code = 2217) 353 MG/DL BUN (test code = 2208) 27 MG/DL CREATININE (test code = 2214) 0.90 MG/DL eGFR AMER. (test code 92 ML/MIN/1.73 = 34899) eGFR NON- AMER. (test 79 ML/MIN/1.73 code = 56535) CALC BUN/CREAT (test code = 30 RATIO [...] (test code = 2219) 18 U/L HEMOGLOBIN [id number] 00:00:00 Test Item Value Reference Range Interpretation Comments HEMOGLOBIN A1c (test code = 75745) 10.7 % [id number] 00:00:00 Test Item Value Reference Range Interpretation Comments TSH, THIRD GENERATION (test code 0.777 UIU/ML = 2821) [id number] 00:00:00 Test Item Value Reference Range Interpretation Comments TSH, THIRD GENERATION (test code 0.777 UIU/ML = 2821) [id number] 00:00:00 Test Item Value Reference Range Interpretation Comments TSH, THIRD GENERATION (test code 0.777 UIU/ML = 2821) MICROALBUMIN/CREATININE, RANDOM AND [id number] 00:00:00 Test Item Value Reference Range Interpretation Comments CREATININE, URINE, CONC. (test 127.3 MG/DL code = 2072) ALBUMIN, URINE, RANDOM (test code 65.2 MG/DL = 73109) CALC ALBUMIN/CREAT, RND (test 512 MG/G code = 90357) MICROALBUMIN/CREATININE, RANDOM AND [id number] 00:00:00 Test Item Value Reference Range Interpretation Comments CREATININE, URINE, CONC. (test 127.3 MG/DL code = 2072) ALBUMIN, URINE, RANDOM (test code 65.2 MG/DL = 23949) CALC ALBUMIN/CREAT, RND (test 512 MG/G code = 80763) LIPID [id number] 00:00:00 Test Item Value Reference Range Interpretation Comments CHOLESTEROL (test code = 2210) 412 MG/DL TRIGLYCERIDES (test code = 2232) 2520 MG/DL HDL CHOLESTEROL (test code = 16 MG/DL 2219) CALC LDL CHOL (test code = 2237) NOTE MG/DL RISK RATIO LDL/HDL (test code = (NOTE) RATIO 2238) HEMOGLOBIN [id number] 00:00:00 Test Item Value Reference Range Interpretation Comments HEMOGLOBIN A1c (test code = 68154) 10.7 % HEMOGLOBIN [id number] 00:00:00 Test Item Value Reference Range Interpretation Comments HEMOGLOBIN A1c (test code = 12819) 10.7 % COMPREHENSIVE METABOLIC [id number] 00:00:00 Test Item Value Reference Range Interpretation Comments GLUCOSE (test code = 2217) 353 MG/DL BUN (test code = 2208) 27 MG/DL CREATININE (test code = 2214) 0.90 MG/DL eGFR AMER. (test code 92 ML/MIN/1.73 = 91201) eGFR NON- AMER. (test 79 ML/MIN/1.73 code = 51367) CALC BUN/CREAT (test code = 30 RATIO [...] code = 2219) 18 U/L COMPREHENSIVE METABOLIC [id number] 00:00:00 Test Item Value Reference Range Interpretation Comments GLUCOSE (test code = 2217) 353 MG/DL BUN (test code = 2208) 27 MG/DL CREATININE (test code = 2214) 0.90 MG/DL eGFR AMER. (test code 92 ML/MIN/1.73 = 60524) eGFR NON- AMER. (test 79 ML/MIN/1.73 code = 95837) CALC BUN/CREAT (test code = 30 RATIO [...] ALT (test code = 2219) 18 U/L [id number] 00:00:00 Test Item Value Reference Range Interpretation Comments TSH, THIRD GENERATION (test code 0.777 UIU/ML = 2821) LIPID [id number] 00:00:00 Test Item Value Reference Range Interpretation Comments CHOLESTEROL (test code = 2210) 412 MG/DL TRIGLYCERIDES (test code = 2232) 2520 MG/DL HDL CHOLESTEROL (test code = 16 MG/DL 2219) CALC LDL CHOL (test code = 2237) NOTE MG/DL RISK RATIO LDL/HDL (test code = (NOTE) RATIO 2238) [id number] 00:00:00 Test Item Value Reference Range Interpretation Comments TSH, THIRD GENERATION (test code 0.777 UIU/ML = 2821) LIPID [id number] 00:00:00 Test Item Value Reference Range Interpretation Comments CHOLESTEROL (test code = 2210) 412 MG/DL TRIGLYCERIDES (test code = 2232) 2520 MG/DL HDL CHOLESTEROL (test code = 16 MG/DL 2220) CALC LDL CHOL (test code = 2237) NOTE MG/DL RISK RATIO LDL/HDL (test code = (NOTE) RATIO 2238) HEMOGLOBIN [id number] 00:00:00 Test Item Value Reference Range Interpretation Comments HEMOGLOBIN A1c (test code = 99723) 10.7 % HEMOGLOBIN [id number] 00:00:00 Test Item Value Reference Range Interpretation Comments HEMOGLOBIN A1c (test code = 14253) 10.7 % HEMOGLOBIN [id number] 00:00:00 Test Item Value Reference Range Interpretation Comments HEMOGLOBIN A1c (test code = 23276) 10.7 % [id number] 00:00:00 Test Item Value Reference Range Interpretation Comments TSH, THIRD GENERATION (test code 0.777 UIU/ML = 2821) [id number] 00:00:00 Test Item Value Reference Range Interpretation Comments TSH, THIRD GENERATION (test code 0.777 UIU/ML = 2821) MICROALBUMIN/CREATININE, RANDOM AND [id number] 00:00:00 Test Item Value Reference Range Interpretation Comments CREATININE, URINE, CONC. (test 127.3 MG/DL code = 2072) ALBUMIN, URINE, RANDOM (test code 65.2 MG/DL = 64783) CALC ALBUMIN/CREAT, RND (test 512 MG/G code = 79716) [id number] 00:00:00 Test Item Value Reference Range Interpretation Comments TSH, THIRD GENERATION (test code 0.777 UIU/ML = 2821) MICROALBUMIN/CREATININE, RANDOM AND [id number] 00:00:00 Test Item Value Reference Range Interpretation Comments CREATININE, URINE, CONC. (test 127.3 MG/DL code = 2072) ALBUMIN, URINE, RANDOM (test code 65.2 MG/DL = 23523) CALC ALBUMIN/CREAT, RND (test 512 MG/G code = 32483) MICROALBUMIN/CREATININE, RANDOM AND [id number] 00:00:00 Test Item Value Reference Range Interpretation Comments CREATININE, URINE, CONC. (test 127.3 MG/DL code = 2072) ALBUMIN, URINE, RANDOM (test code 65.2 MG/DL = 95663) CALC ALBUMIN/CREAT, RND (test 512 MG/G code = 57013) COMPREHENSIVE METABOLIC [id number] 00:00:00 Test Item Value Reference Range Interpretation Comments GLUCOSE (test code = 2217) 353 MG/DL BUN (test code = 2208) 27 MG/DL CREATININE (test code = 2214) 0.90 MG/DL eGFR AMER. (test code 92 ML/MIN/1.73 = 00853) eGFR NON- AMER. (test 79 ML/MIN/1.73 code = 53502) CALC BUN/CREAT (test code = 30 RATIO [...] code = 2219) 18 U/L COMPREHENSIVE METABOLIC [id number] 00:00:00 Test Item Value Reference Range Interpretation Comments GLUCOSE (test code = 2217) 353 MG/DL BUN (test code = 2208) 27 MG/DL CREATININE (test code = 2214) 0.90 MG/DL eGFR AMER. (test code 92 ML/MIN/1.73 = 16632) eGFR NON- AMER. (test 79 ML/MIN/1.73 code = 58962) CALC BUN/CREAT (test code = 30 RATIO [...] (test code = 2219) 18 U/L LIPID [id number] 00:00:00 Test Item Value Reference Range Interpretation Comments CHOLESTEROL (test code = 2210) 412 MG/DL TRIGLYCERIDES (test code = 2232) 2520 MG/DL HDL CHOLESTEROL (test code = 16 MG/DL 2220) CALC LDL CHOL (test code = 2237) NOTE MG/DL RISK RATIO LDL/HDL (test code = (NOTE) RATIO 2238) LIPID [id number] 00:00:00 Test Item Value Reference Range Interpretation Comments CHOLESTEROL (test code = 2210) 412 MG/DL TRIGLYCERIDES (test code = 2232) 2520 MG/DL HDL CHOLESTEROL (test code = 16 MG/DL 2220) CALC LDL CHOL (test code = 2237) NOTE MG/DL RISK RATIO LDL/HDL (test code = (NOTE) RATIO 2238) HEMOGLOBIN [id number] 00:00:00 Test Item Value Reference Range Interpretation Comments HEMOGLOBIN A1c (test code = 15085) 10.7 % HEMOGLOBIN [id number] 00:00:00 Test Item Value Reference Range Interpretation Comments HEMOGLOBIN A1c (test code = 24002) 10.7 % HEMOGLOBIN [id number] 00:00:00 Test Item Value Reference Range Interpretation Comments HEMOGLOBIN A1c (test code = 25357) 10.7 % [id number] 00:00:00 Test Item Value Reference Range Interpretation Comments TSH, THIRD GENERATION (test code 0.777 UIU/ML = 2821) [id number] 00:00:00 Test Item Value Reference Range Interpretation Comments TSH, THIRD GENERATION (test code 0.777 UIU/ML = 2821) [id number] 00:00:00 Test Item Value Reference Range Interpretation Comments TSH, THIRD GENERATION (test code 0.777 UIU/ML = 2821) MICROALBUMIN/CREATININE, RANDOM AND [id number] 00:00:00 Test Item Value Reference Range Interpretation Comments CREATININE, URINE, CONC. (test 127.3 MG/DL code = 2072) ALBUMIN, URINE, RANDOM (test code 65.2 MG/DL = 56058) CALC ALBUMIN/CREAT, RND (test 512 MG/G code = 37559) MICROALBUMIN/CREATININE, RANDOM AND [id number] 00:00:00 Test Item Value Reference Range Interpretation Comments CREATININE, URINE, CONC. (test 127.3 MG/DL code = 2072) ALBUMIN, URINE, RANDOM (test code 65.2 MG/DL = 60976) CALC ALBUMIN/CREAT, RND (test 512 MG/G code = 33852) COMPREHENSIVE METABOLIC [id number] 00:00:00 Test Item Value Reference Range Interpretation Comments GLUCOSE (test code = 2217) 353 MG/DL BUN (test code = 2208) 27 MG/DL CREATININE (test code = 2214) 0.90 MG/DL eGFR AMER. (test code 92 ML/MIN/1.73 = 73369) eGFR NON- AMER. (test 79 ML/MIN/1.73 code = 01899) CALC BUN/CREAT (test code = 30 RATIO [...] code = 2219) 18 U/L COMPREHENSIVE METABOLIC [id number] 00:00:00 Test Item Value Reference Range Interpretation Comments GLUCOSE (test code = 2217) 353 MG/DL BUN (test code = 2208) 27 MG/DL CREATININE (test code = 2214) 0.90 MG/DL eGFR AMER. (test code 92 ML/MIN/1.73 = 83283) eGFR NON- AMER. (test 79 ML/MIN/1.73 code = 17946) CALC BUN/CREAT (test code = 30 RATIO [...] (test code = 2219) 18 U/L LIPID [id number] 00:00:00 Test Item Value Reference Range Interpretation Comments CHOLESTEROL (test code = 2210) 412 MG/DL TRIGLYCERIDES (test code = 2232) 2520 MG/DL HDL CHOLESTEROL (test code = 16 MG/DL 2220) CALC LDL CHOL (test code = 2237) NOTE MG/DL RISK RATIO LDL/HDL (test code = (NOTE) RATIO 2238) LIPID [id number] 00:00:00 Test Item Value Reference Range Interpretation Comments CHOLESTEROL (test code = 2210) 412 MG/DL TRIGLYCERIDES (test code = 2232) 2520 MG/DL HDL CHOLESTEROL (test code = 16 MG/DL 2220) CALC LDL CHOL (test code = 2237) NOTE MG/DL RISK RATIO LDL/HDL (test code = (NOTE) RATIO 2238) HEMOGLOBIN [id number] 00:00:00 Test Item Value Reference Range Interpretation Comments HEMOGLOBIN A1c (test code = 50431) 10.7 % HEMOGLOBIN [id number] 00:00:00 Test Item Value Reference Range Interpretation Comments HEMOGLOBIN A1c (test code = 65624) 10.7 % HEMOGLOBIN [id number] 00:00:00 Test Item Value Reference Range Interpretation Comments HEMOGLOBIN A1c (test code = 79826) 10.7 % [id number] 00:00:00 Test Item Value Reference Range Interpretation Comments TSH, THIRD GENERATION (test code 0.777 UIU/ML = 2821) [id number] 00:00:00 Test Item Value Reference Range Interpretation Comments TSH, THIRD GENERATION (test code 0.777 UIU/ML = 2821) [id number] 00:00:00 Test Item Value Reference Range Interpretation Comments TSH, THIRD GENERATION (test code 0.777 UIU/ML = 2821) MICROALBUMIN/CREATININE, RANDOM AND [id number] 00:00:00 Test Item Value Reference Range Interpretation Comments CREATININE, URINE, CONC. (test 127.3 MG/DL code = 2072) ALBUMIN, URINE, RANDOM (test code 65.2 MG/DL = 72548) CALC ALBUMIN/CREAT, RND (test 512 MG/G code = 58692) MICROALBUMIN/CREATININE, RANDOM AND [id number] 00:00:00 Test Item Value Reference Range Interpretation Comments CREATININE, URINE, CONC. (test 127.3 MG/DL code = 2072) ALBUMIN, URINE, RANDOM (test code 65.2 MG/DL = 15279) CALC ALBUMIN/CREAT, RND (test 512 MG/G code = 35919) CULTURE, [id number] 00:00:00 Test Item Value Reference Range Interpretation Comments CULTURE, URINE (test SPECIMEN NUMBER: code = 39953) [id number] CULTURE, [id number] 00:00:00 Test Item Value Reference Range Interpretation Comments CULTURE, URINE (test SPECIMEN NUMBER: code = 57887) [id number] CULTURE, [id number] 00:00:00 Test Item Value Reference Range Interpretation Comments CULTURE, URINE (test SPECIMEN NUMBER: code = 15909) [id number] CULTURE, [id number] 00:00:00 Test Item Value Reference Range Interpretation Comments CULTURE, URINE (test SPECIMEN NUMBER: code = 90932) [id number] CULTURE, [id number] 00:00:00 Test Item Value Reference Range Interpretation Comments CULTURE, URINE (test SPECIMEN NUMBER: code = 87541) [id number] CULTURE, [id number] 00:00:00 Test Item Value Reference Range Interpretation Comments CULTURE, URINE (test SPECIMEN NUMBER: code = 96576) [id number] CULTURE, [id number] 00:00:00 Test Item Value Reference Range Interpretation Comments CULTURE, URINE (test SPECIMEN NUMBER: code = 16766) [id number] CULTURE, [id number] 00:00:00 Test Item Value Reference Range Interpretation Comments CULTURE, URINE (test SPECIMEN NUMBER: code = 46596) [id number] CULTURE, [id number] 00:00:00 Test Item Value Reference Range Interpretation Comments CULTURE, URINE (test SPECIMEN NUMBER: code = 77014) [id number] CULTURE, [id number] 00:00:00 Test Item Value Reference Range Interpretation Comments CULTURE, URINE (test SPECIMEN NUMBER: code = 19877) [id number] CULTURE, [id number] 00:00:00 Test Item Value Reference Range Interpretation Comments CULTURE, URINE (test SPECIMEN NUMBER: code = 82818) [id number] CULTURE, [id number] 00:00:00 Test Item Value Reference Range Interpretation Comments CULTURE, URINE (test SPECIMEN NUMBER: code = 03170) [id number] CULTURE, [id number] 00:00:00 Test Item Value Reference Range Interpretation Comments CULTURE, URINE (test SPECIMEN NUMBER: code = 53425) [id number] CULTURE, [id number] 00:00:00 Test Item Value Reference Range Interpretation Comments CULTURE, URINE (test SPECIMEN NUMBER: code = 87387) [id number] CULTURE, [id number] 00:00:00 Test Item Value Reference Range Interpretation Comments CULTURE, URINE (test SPECIMEN NUMBER: code = 26908) [id number] CULTURE, [id number] 00:00:00 Test Item Value Reference Range Interpretation Comments CULTURE, URINE (test SPECIMEN NUMBER: code = 58568) [id number] CULTURE, [id number] 00:00:00 Test Item Value Reference Range Interpretation Comments CULTURE, URINE (test SPECIMEN NUMBER: code = 04480) [id number] CULTURE, [id number] 00:00:00 Test Item Value Reference Range Interpretation Comments CULTURE, URINE (test SPECIMEN NUMBER: code = 91667) [id number] CULTURE, [id number] 00:00:00 Test Item Value Reference Range Interpretation Comments CULTURE, URINE (test SPECIMEN NUMBER: code = 11497) [id number] CULTURE, [id number] 00:00:00 Test Item Value Reference Range Interpretation Comments CULTURE, URINE (test SPECIMEN NUMBER: code = 27959) [id number] CULTURE, [id number] 00:00:00 Test Item Value Reference Range Interpretation Comments CULTURE, URINE (test SPECIMEN NUMBER: code = 84931) [id number] VAGINAL PATHOGENS DNA [id number] 00:00:00 Test Item Value Reference Range Interpretation Comments ANDIE SPECIES (test code = 15385) NEGATIVE G. VAGINALIS (test code = 47427) NEGATIVE T. VAGINALIS (test code = 53824) NEGATIVE VAGINAL PATHOGENS DNA [id number] 00:00:00 Test Item Value Reference Range Interpretation Comments ANDIE SPECIES (test code = 98377) NEGATIVE G. VAGINALIS (test code = 33571) NEGATIVE T. VAGINALIS (test code = 24594) NEGATIVE VAGINAL PATHOGENS DNA [id number] 00:00:00 Test Item Value Reference Range Interpretation Comments ANDIE SPECIES (test code = 22714) NEGATIVE G. VAGINALIS (test code = 79498) NEGATIVE T. VAGINALIS (test code = 01187) NEGATIVE VAGINAL PATHOGENS DNA [id number] 00:00:00 Test Item Value Reference Range Interpretation Comments ANDIE SPECIES (test code = 17302) NEGATIVE G. VAGINALIS (test code = 17199) NEGATIVE T. VAGINALIS (test code = 51234) NEGATIVE VAGINAL PATHOGENS DNA [id number] 00:00:00 Test Item Value Reference Range Interpretation Comments ANDIE SPECIES (test code = 74161) NEGATIVE G. VAGINALIS (test code = 26932) NEGATIVE T. VAGINALIS (test code = 69270) NEGATIVE VAGINAL PATHOGENS DNA [id number] 00:00:00 Test Item Value Reference Range Interpretation Comments ANDIE SPECIES (test code = 01009) NEGATIVE G. VAGINALIS (test code = 85907) NEGATIVE T. VAGINALIS (test code = 54946) NEGATIVE VAGINAL PATHOGENS DNA [id number] 00:00:00 Test Item Value Reference Range Interpretation Comments ANDIE SPECIES (test code = 77137) NEGATIVE G. VAGINALIS (test code = 84986) NEGATIVE T. VAGINALIS (test code = 99873) NEGATIVE VAGINAL PATHOGENS DNA [id number] 00:00:00 Test Item Value Reference Range Interpretation Comments ANDIE SPECIES (test code = 14285) NEGATIVE G. VAGINALIS (test code = 19068) NEGATIVE T. VAGINALIS (test code = 34776) NEGATIVE VAGINAL PATHOGENS DNA [id number] 00:00:00 Test Item Value Reference Range Interpretation Comments ANDIE SPECIES (test code = 61512) NEGATIVE G. VAGINALIS (test code = 91294) NEGATIVE T. VAGINALIS (test code = 29461) NEGATIVE VAGINAL PATHOGENS DNA [id number] 00:00:00 Test Item Value Reference Range Interpretation Comments ANDIE SPECIES (test code = 81518) NEGATIVE G. VAGINALIS (test code = 19543) NEGATIVE T. VAGINALIS (test code = 63876) NEGATIVE VAGINAL PATHOGENS DNA [id number] 00:00:00 Test Item Value Reference Range Interpretation Comments ANDIE SPECIES (test code = 70603) NEGATIVE G. VAGINALIS (test code = 37328) NEGATIVE T. VAGINALIS (test code = 10865) NEGATIVE VAGINAL PATHOGENS DNA [id number] 00:00:00 Test Item Value Reference Range Interpretation Comments ANDIE SPECIES (test code = 53490) NEGATIVE G. VAGINALIS (test code = 32955) NEGATIVE T. VAGINALIS (test code = 44016) NEGATIVE VAGINAL PATHOGENS DNA [id number] 00:00:00 Test Item Value Reference Range Interpretation Comments ANDIE SPECIES (test code = 08057) NEGATIVE G. VAGINALIS (test code = 78391) NEGATIVE T. VAGINALIS (test code = 11806) NEGATIVE VAGINAL PATHOGENS DNA [id number] 00:00:00 Test Item Value Reference Range Interpretation Comments ANDIE SPECIES (test code = 66256) NEGATIVE G. VAGINALIS (test code = 40217) NEGATIVE T. VAGINALIS (test code = 77154) NEGATIVE VAGINAL PATHOGENS DNA [id number] 00:00:00 Test Item Value Reference Range Interpretation Comments ANDIE SPECIES (test code = 40841) NEGATIVE G. VAGINALIS (test code = 57286) NEGATIVE T. VAGINALIS (test code = 50133) NEGATIVE VAGINAL PATHOGENS DNA [id number] 00:00:00 Test Item Value Reference Range Interpretation Comments ANDIE SPECIES (test code = 00826) NEGATIVE G. VAGINALIS (test code = 11873) NEGATIVE T. VAGINALIS (test code = 59397) NEGATIVE VAGINAL PATHOGENS DNA [id number] 00:00:00 Test Item Value Reference Range Interpretation Comments ANDIE SPECIES (test code = 44334) NEGATIVE G. VAGINALIS (test code = 84767) NEGATIVE T. VAGINALIS (test code = 27060) NEGATIVE VAGINAL PATHOGENS DNA [id number] 00:00:00 Test Item Value Reference Range Interpretation Comments ANDIE SPECIES (test code = 28149) NEGATIVE G. VAGINALIS (test code = 84593) NEGATIVE T. VAGINALIS (test code = 00895) NEGATIVE VAGINAL PATHOGENS DNA [id number] 00:00:00 Test Item Value Reference Range Interpretation Comments ANDIE SPECIES (test code = 57533) NEGATIVE G. VAGINALIS (test code = 10000) NEGATIVE T. VAGINALIS (test code = 24073) NEGATIVE VAGINAL PATHOGENS DNA [id number] 00:00:00 Test Item Value Reference Range Interpretation Comments ANDIE SPECIES (test code = 00191) NEGATIVE G. VAGINALIS (test code = 86626) NEGATIVE T. VAGINALIS (test code = 25753) NEGATIVE VAGINAL PATHOGENS DNA [id number] 00:00:00 Test Item Value Reference Range Interpretation Comments ANDIE SPECIES (test code = 59589) NEGATIVE G. VAGINALIS (test code = 43017) NEGATIVE T. VAGINALIS (test code = 59469) NEGATIVE COMPREHENSIVE METABOLIC PANEL [ADDED]2018-05-24 00:00:00 Test Item Value Reference Range Interpretation Comments GLUCOSE (test code = 2217) 198 MG/DL BUN (test code = 2208) 18 MG/DL CREATININE (test code = 2214) 0.86 MG/DL eGFR AMER. (test code 98 ML/MIN/1.73 = 03203) eGFR NON- AMER. (test 84 ML/MIN/1.73 code = 37352) CALC BUN/CREAT (test code = 21 RATIO [...] eGFR AMER. (test code 98 ML/MIN/1.73 = 04758) eGFR NON- AMER. (test 84 ML/MIN/1.73 code = 08716) CALC BUN/CREAT (test code = 21 RATIO [...] Interpretation Comments HEMOGLOBIN A1c (test code = 52155) 10.1 % HEMOGLOBIN A1c [ADDED]2018-05-24 00:00:00 Test Item Value Reference Range Interpretation Comments HEMOGLOBIN A1c (test code = 06987) 10.1 % HEMOGLOBIN A1c [ADDED]2018-05-24 00:00:00 Test Item Value Reference Range Interpretation Comments HEMOGLOBIN A1c (test code = 91385) 10.1 % COMPREHENSIVE METABOLIC PANEL [ADDED]2018-05-24 00:00:00 Test Item Value Reference Range Interpretation Comments GLUCOSE (test code = 2217) 198 MG/DL BUN (test code = 2208) 18 MG/DL CREATININE (test code = 2214) 0.86 MG/DL eGFR AMER. (test code 98 ML/MIN/1.73 = 74337) eGFR NON- AMER. (test 84 ML/MIN/1.73 code = 37303) CALC BUN/CREAT (test code = 21 RATIO [...] eGFR AMER. (test code 98 ML/MIN/1.73 = 19979) eGFR NON- AMER. (test 84 ML/MIN/1.73 code = 44372) CALC BUN/CREAT (test code = 21 RATIO [...] Comments HEMOGLOBIN A1c (test code = 28762) 10.1 % HEMOGLOBIN A1c [ADDED]2018-05-24 00:00:00 Test Item Value Reference Range Interpretation Comments HEMOGLOBIN A1c (test code = 60186) 10.1 % HEMOGLOBIN A1c [ADDED]2018-05-24 00:00:00 Test Item Value Reference Range Interpretation Comments HEMOGLOBIN A1c (test code = 66790) 10.1 % COMPREHENSIVE METABOLIC PANEL [ADDED]2018-05-24 00:00:00 Test Item Value Reference Range Interpretation Comments GLUCOSE (test code = 2217) 198 MG/DL BUN (test code = 2208) 18 MG/DL CREATININE (test code = 2214) 0.86 MG/DL eGFR AMER. (test code 98 ML/MIN/1.73 = 32817) eGFR NON- AMER. (test 84 ML/MIN/1.73 code = 40047) CALC BUN/CREAT (test code = 21 RATIO [...] eGFR AMER. (test code 98 ML/MIN/1.73 = 20775) eGFR NON- AMER. (test 84 ML/MIN/1.73 code = 77567) CALC BUN/CREAT (test code = 21 RATIO [...] Interpretation Comments HEMOGLOBIN A1c (test code = 72165) 10.1 % HEMOGLOBIN A1c [ADDED]2018-05-24 00:00:00 Test Item Value Reference Range Interpretation Comments HEMOGLOBIN A1c (test code = 27762) 10.1 % HEMOGLOBIN A1c [ADDED]2018-05-24 00:00:00 Test Item Value Reference Range Interpretation Comments HEMOGLOBIN A1c (test code = 13352) 10.1 % COMPREHENSIVE METABOLIC PANEL [ADDED]2018-05-24 00:00:00 Test Item Value Reference Range Interpretation Comments GLUCOSE (test code = 2217) 198 MG/DL BUN (test code = 2208) 18 MG/DL CREATININE (test code = 2214) 0.86 MG/DL eGFR AMER. (test code 98 ML/MIN/1.73 = 96821) eGFR NON- AMER. (test 84 ML/MIN/1.73 code = 43407) CALC BUN/CREAT (test code = 21 RATIO [...] eGFR AMER. (test code 98 ML/MIN/1.73 = 54729) eGFR NON- AMER. (test 84 ML/MIN/1.73 code = 55329) CALC BUN/CREAT (test code = 21 RATIO [...] Interpretation Comments HEMOGLOBIN A1c (test code = 23131) 10.1 % HEMOGLOBIN A1c [ADDED]2018-05-24 00:00:00 Test Item Value Reference Range Interpretation Comments HEMOGLOBIN A1c (test code = 62740) 10.1 % HEMOGLOBIN A1c [ADDED]2018-05-24 00:00:00 Test Item Value Reference Range Interpretation Comments HEMOGLOBIN A1c (test code = 22610) 10.1 % COMPREHENSIVE METABOLIC PANEL [ADDED]2018-05-24 00:00:00 Test Item Value Reference Range Interpretation Comments GLUCOSE (test code = 2217) 198 MG/DL BUN (test code = 2208) 18 MG/DL CREATININE (test code = 2214) 0.86 MG/DL eGFR AMER. (test code 98 ML/MIN/1.73 = 49664) eGFR NON- AMER. (test 84 ML/MIN/1.73 code = 20254) CALC BUN/CREAT (test code = 21 RATIO [...] eGFR AMER. (test code 98 ML/MIN/1.73 = 34130) eGFR NON- AMER. (test 84 ML/MIN/1.73 code = 51610) CALC BUN/CREAT (test code = 21 RATIO [...] Interpretation Comments HEMOGLOBIN A1c (test code = 80679) 10.1 % HEMOGLOBIN A1c [ADDED]2018-05-24 00:00:00 Test Item Value Reference Range Interpretation Comments HEMOGLOBIN A1c (test code = 00163) 10.1 % HEMOGLOBIN A1c [ADDED]2018-05-24 00:00:00 Test Item Value Reference Range Interpretation Comments HEMOGLOBIN A1c (test code = 92660) 10.1 % COMPREHENSIVE METABOLIC PANEL [ADDED]2018-05-24 00:00:00 Test Item Value Reference Range Interpretation Comments GLUCOSE (test code = 2217) 198 MG/DL BUN (test code = 2208) 18 MG/DL CREATININE (test code = 2214) 0.86 MG/DL eGFR AMER. (test code 98 ML/MIN/1.73 = 12547) eGFR NON- AMER. (test 84 ML/MIN/1.73 code = 64874) CALC BUN/CREAT (test code = 21 RATIO [...] eGFR AMER. (test code 98 ML/MIN/1.73 = 78321) eGFR NON- AMER. (test 84 ML/MIN/1.73 code = 64125) CALC BUN/CREAT (test code = 21 RATIO [...] Interpretation Comments HEMOGLOBIN A1c (test code = 28116) 10.1 % HEMOGLOBIN A1c [ADDED]2018-05-24 00:00:00 Test Item Value Reference Range Interpretation Comments HEMOGLOBIN A1c (test code = 16118) 10.1 % HEMOGLOBIN A1c [ADDED]2018-05-24 00:00:00 Test Item Value Reference Range Interpretation Comments HEMOGLOBIN A1c (test code = 06555) 10.1 % COMPREHENSIVE METABOLIC PANEL [ADDED]2018-05-24 00:00:00 Test Item Value Reference Range Interpretation Comments GLUCOSE (test code = 2217) 198 MG/DL BUN (test code = 2208) 18 MG/DL CREATININE (test code = 2214) 0.86 MG/DL eGFR AMER. (test code 98 ML/MIN/1.73 = 82393) eGFR NON- AMER. (test 84 ML/MIN/1.73 code = 43273) CALC BUN/CREAT (test code = 21 RATIO [...] eGFR AMER. (test code 98 ML/MIN/1.73 = 18708) eGFR NON- AMER. (test 84 ML/MIN/1.73 code = 79367) CALC BUN/CREAT (test code = 21 RATIO [...] Interpretation Comments HEMOGLOBIN A1c (test code = 80682) 10.1 % HEMOGLOBIN A1c [ADDED]2018-05-24 00:00:00 Test Item Value Reference Range Interpretation Comments HEMOGLOBIN A1c (test code = 73552) 10.1 % HEMOGLOBIN A1c [ADDED]2018-05-24 00:00:00 Test Item Value Reference Range Interpretation Comments HEMOGLOBIN A1c (test code = 27382) 10.1 % COMPREHENSIVE METABOLIC PANEL [ADDED]2018-05-24 00:00:00 Test Item Value Reference Range Interpretation Comments GLUCOSE (test code = 2217) 198 MG/DL BUN (test code = 2208) 18 MG/DL CREATININE (test code = 2214) 0.86 MG/DL eGFR AMER. (test code 98 ML/MIN/1.73 = 96650) eGFR NON- AMER. (test 84 ML/MIN/1.73 code = 13360) CALC BUN/CREAT (test code = 21 RATIO [...] Interpretation Comments HEMOGLOBIN A1c (test code = 62523) 10.1 % HEMOGLOBIN A1c [ADDED]2018-05-24 00:00:00 Test Item Value Reference Range Interpretation Comments HEMOGLOBIN A1c (test code = 81463) 10.1 % COMPREHENSIVE METABOLIC PANEL [ADDED]2018-05-24 00:00:00 Test Item Value Reference Range Interpretation Comments GLUCOSE (test code = 2217) 198 MG/DL BUN (test code = 2208) 18 MG/DL CREATININE (test code = 2214) 0.86 MG/DL eGFR AMER. (test code 98 ML/MIN/1.73 = 52911) eGFR NON- AMER. (test 84 ML/MIN/1.73 code = 13662) CALC BUN/CREAT (test code = 21 RATIO [...] eGFR AMER. (test code 98 ML/MIN/1.73 = 90873) eGFR NON- AMER. (test 84 ML/MIN/1.73 code = 73944) CALC BUN/CREAT (test code = 21 RATIO [...] Interpretation Comments HEMOGLOBIN A1c (test code = 03088) 10.1 % HEMOGLOBIN A1c [ADDED]2018-05-24 00:00:00 Test Item Value Reference Range Interpretation Comments HEMOGLOBIN A1c (test code = 70976) 10.1 % HEMOGLOBIN A1c [ADDED]2018-05-24 00:00:00 Test Item Value Reference Range Interpretation Comments HEMOGLOBIN A1c (test code = 43859) 10.1 % COMPREHENSIVE METABOLIC PANEL [ADDED]2018-05-24 00:00:00 Test Item Value Reference Range Interpretation Comments GLUCOSE (test code = 2217) 198 MG/DL BUN (test code = 2208) 18 MG/DL CREATININE (test code = 2214) 0.86 MG/DL eGFR AMER. (test code 98 ML/MIN/1.73 = 64314) eGFR NON- AMER. (test 84 ML/MIN/1.73 code = 89103) CALC BUN/CREAT (test code = 21 RATIO [...] eGFR AMER. (test code 98 ML/MIN/1.73 = 94854) eGFR NON- AMER. (test 84 ML/MIN/1.73 code = 86335) CALC BUN/CREAT (test code = 21 RATIO [...] Interpretation Comments HEMOGLOBIN A1c (test code = 08533) 10.1 % HEMOGLOBIN A1c [ADDED]2018-05-24 00:00:00 Test Item Value Reference Range Interpretation Comments HEMOGLOBIN A1c (test code = 07632) 10.1 % HEMOGLOBIN A1c [ADDED]2018-05-24 00:00:00 Test Item Value Reference Range Interpretation Comments HEMOGLOBIN A1c (test code = 07736) 10.1 % COMPREHENSIVE METABOLIC PANEL [ADDED]2018-05-24 00:00:00 Test Item Value Reference Range Interpretation Comments GLUCOSE (test code = 2217) 198 MG/DL BUN (test code = 2208) 18 MG/DL CREATININE (test code = 2214) 0.86 MG/DL eGFR AMER. (test code 98 ML/MIN/1.73 = 89451) eGFR NON- AMER. (test 84 ML/MIN/1.73 code = 53312) CALC BUN/CREAT (test code = 21 RATIO [...] eGFR AMER. (test code 98 ML/MIN/1.73 = 77089) eGFR NON- AMER. (test 84 ML/MIN/1.73 code = 36877) CALC BUN/CREAT (test code = 21 RATIO [...] Interpretation Comments HEMOGLOBIN A1c (test code = 36654) 10.1 % HEMOGLOBIN A1c [ADDED]2018-05-24 00:00:00 Test Item Value Reference Range Interpretation Comments HEMOGLOBIN A1c (test code = 29303) 10.1 % HEMOGLOBIN A1c [ADDED]2018-05-24 00:00:00 Test Item Value Reference Range Interpretation Comments HEMOGLOBIN A1c (test code = 36166) 10.1 % HEMOGLOBIN [id number] 00:00:00 Test Item Value Reference Range Interpretation Comments HEMOGLOBIN A1c (test code = 94787) 8.5 % HEMOGLOBIN [id number] 00:00:00 Test Item Value Reference Range Interpretation Comments HEMOGLOBIN A1c (test code = 28368) 8.5 % HEMOGLOBIN [id number] 00:00:00 Test Item Value Reference Range Interpretation Comments HEMOGLOBIN A1c (test code = 52389) 8.5 % COMPREHENSIVE METABOLIC [id number] 00:00:00 Test Item Value Reference Range Interpretation Comments GLUCOSE (test code = 2217) 131 MG/DL BUN (test code = 2208) 16 MG/DL CREATININE (test code = 2214) 0.71 MG/DL eGFR AMER. (test code 124 ML/MIN/1.73 = 93463) eGFR NON- AMER. (test 107 ML/MIN/1.73 code = 59835) CALC BUN/CREAT (test code = 23 RATIO [...] code = 2219) 33 U/L COMPREHENSIVE METABOLIC [id number] 00:00:00 Test Item Value Reference Range Interpretation Comments GLUCOSE (test code = 2217) 131 MG/DL BUN (test code = 2208) 16 MG/DL CREATININE (test code = 2214) 0.71 MG/DL eGFR AMER. (test code 124 ML/MIN/1.73 = 19493) eGFR NON- AMER. (test 107 ML/MIN/1.73 code = 22049) CALC BUN/CREAT (test code = 23 RATIO [...] (test code = 2219) 33 U/L LIPID [id number] 00:00:00 Test Item Value Reference Range Interpretation Comments CHOLESTEROL (test code = 2210) 201 MG/DL TRIGLYCERIDES (test code = 2232) 1014 MG/DL HDL CHOLESTEROL (test code = 25 MG/DL 2220) CALC LDL CHOL (test code = 2237) NOTE MG/DL RISK RATIO LDL/HDL (test code = (NOTE) RATIO 2238) LIPID [id number] 00:00:00 Test Item Value Reference Range Interpretation Comments CHOLESTEROL (test code = 2210) 201 MG/DL TRIGLYCERIDES (test code = 2232) 1014 MG/DL HDL CHOLESTEROL (test code = 25 MG/DL 2220) CALC LDL CHOL (test code = 2237) NOTE MG/DL RISK RATIO LDL/HDL (test code = (NOTE) RATIO 2238) HEMOGLOBIN [id number] 00:00:00 Test Item Value Reference Range Interpretation Comments HEMOGLOBIN A1c (test code = 00818) 8.5 % HEMOGLOBIN [id number] 00:00:00 Test Item Value Reference Range Interpretation Comments HEMOGLOBIN A1c (test code = 92560) 8.5 % HEMOGLOBIN [id number] 00:00:00 Test Item Value Reference Range Interpretation Comments HEMOGLOBIN A1c (test code = 78957) 8.5 % COMPREHENSIVE METABOLIC [id number] 00:00:00 Test Item Value Reference Range Interpretation Comments GLUCOSE (test code = 2217) 131 MG/DL BUN (test code = 2208) 16 MG/DL CREATININE (test code = 2214) 0.71 MG/DL eGFR AMER. (test code 124 ML/MIN/1.73 = 99452) eGFR NON- AMER. (test 107 ML/MIN/1.73 code = 49538) CALC BUN/CREAT (test code = 23 RATIO [...] code = 2219) 33 U/L COMPREHENSIVE METABOLIC [id number] 00:00:00 Test Item Value Reference Range Interpretation Comments GLUCOSE (test code = 2217) 131 MG/DL BUN (test code = 2208) 16 MG/DL CREATININE (test code = 2214) 0.71 MG/DL eGFR AMER. (test code 124 ML/MIN/1.73 = 82150) eGFR NON- AMER. (test 107 ML/MIN/1.73 code = 22729) CALC BUN/CREAT (test code = 23 RATIO [...] (test code = 2219) 33 U/L LIPID [id number] 00:00:00 Test Item Value Reference Range Interpretation Comments CHOLESTEROL (test code = 2210) 201 MG/DL TRIGLYCERIDES (test code = 2232) 1014 MG/DL HDL CHOLESTEROL (test code = 25 MG/DL 2220) CALC LDL CHOL (test code = 2237) NOTE MG/DL RISK RATIO LDL/HDL (test code = (NOTE) RATIO 2238) LIPID [id number] 00:00:00 Test Item Value Reference Range Interpretation Comments CHOLESTEROL (test code = 2210) 201 MG/DL TRIGLYCERIDES (test code = 2232) 1014 MG/DL HDL CHOLESTEROL (test code = 25 MG/DL 2220) CALC LDL CHOL (test code = 2237) NOTE MG/DL RISK RATIO LDL/HDL (test code = (NOTE) RATIO 2238) HEMOGLOBIN [id number] 00:00:00 Test Item Value Reference Range Interpretation Comments HEMOGLOBIN A1c (test code = 59809) 8.5 % HEMOGLOBIN [id number] 00:00:00 Test Item Value Reference Range Interpretation Comments HEMOGLOBIN A1c (test code = 76262) 8.5 % HEMOGLOBIN [id number] 00:00:00 Test Item Value Reference Range Interpretation Comments HEMOGLOBIN A1c (test code = 90863) 8.5 % COMPREHENSIVE METABOLIC [id number] 00:00:00 Test Item Value Reference Range Interpretation Comments GLUCOSE (test code = 2217) 131 MG/DL BUN (test code = 2208) 16 MG/DL CREATININE (test code = 2214) 0.71 MG/DL eGFR AMER. (test code 124 ML/MIN/1.73 = 99330) eGFR NON- AMER. (test 107 ML/MIN/1.73 code = 09185) CALC BUN/CREAT (test code = 23 RATIO [...] code = 2219) 33 U/L COMPREHENSIVE METABOLIC [id number] 00:00:00 Test Item Value Reference Range Interpretation Comments GLUCOSE (test code = 2217) 131 MG/DL BUN (test code = 2208) 16 MG/DL CREATININE (test code = 2214) 0.71 MG/DL eGFR AMER. (test code 124 ML/MIN/1.73 = 81730) eGFR NON- AMER. (test 107 ML/MIN/1.73 code = 51107) CALC BUN/CREAT (test code = 23 RATIO [...] (test code = 2219) 33 U/L LIPID [id number] 00:00:00 Test Item Value Reference Range Interpretation Comments CHOLESTEROL (test code = 2210) 201 MG/DL TRIGLYCERIDES (test code = 2232) 1014 MG/DL HDL CHOLESTEROL (test code = 25 MG/DL 2220) CALC LDL CHOL (test code = 2237) NOTE MG/DL RISK RATIO LDL/HDL (test code = (NOTE) RATIO 2238) LIPID [id number] 00:00:00 Test Item Value Reference Range Interpretation Comments CHOLESTEROL (test code = 2210) 201 MG/DL TRIGLYCERIDES (test code = 2232) 1014 MG/DL HDL CHOLESTEROL (test code = 25 MG/DL 2220) CALC LDL CHOL (test code = 2237) NOTE MG/DL RISK RATIO LDL/HDL (test code = (NOTE) RATIO 2238) HEMOGLOBIN [id number] 00:00:00 Test Item Value Reference Range Interpretation Comments HEMOGLOBIN A1c (test code = 45772) 8.5 % HEMOGLOBIN [id number] 00:00:00 Test Item Value Reference Range Interpretation Comments HEMOGLOBIN A1c (test code = 72261) 8.5 % HEMOGLOBIN [id number] 00:00:00 Test Item Value Reference Range Interpretation Comments HEMOGLOBIN A1c (test code = 29044) 8.5 % COMPREHENSIVE METABOLIC [id number] 00:00:00 Test Item Value Reference Range Interpretation Comments GLUCOSE (test code = 2217) 131 MG/DL BUN (test code = 2208) 16 MG/DL CREATININE (test code = 2214) 0.71 MG/DL eGFR AMER. (test code 124 ML/MIN/1.73 = 13673) eGFR NON- AMER. (test 107 ML/MIN/1.73 code = 99441) CALC BUN/CREAT (test code = 23 RATIO [...] code = 2219) 33 U/L COMPREHENSIVE METABOLIC [id number] 00:00:00 Test Item Value Reference Range Interpretation Comments GLUCOSE (test code = 2217) 131 MG/DL BUN (test code = 2208) 16 MG/DL CREATININE (test code = 2214) 0.71 MG/DL eGFR AMER. (test code 124 ML/MIN/1.73 = 63599) eGFR NON- AMER. (test 107 ML/MIN/1.73 code = 99430) CALC BUN/CREAT (test code = 23 RATIO [...] (test code = 2219) 33 U/L LIPID [id number] 00:00:00 Test Item Value Reference Range Interpretation Comments CHOLESTEROL (test code = 2210) 201 MG/DL TRIGLYCERIDES (test code = 2232) 1014 MG/DL HDL CHOLESTEROL (test code = 25 MG/DL 2220) CALC LDL CHOL (test code = 2237) NOTE MG/DL RISK RATIO LDL/HDL (test code = (NOTE) RATIO 2238) LIPID [id number] 00:00:00 Test Item Value Reference Range Interpretation Comments CHOLESTEROL (test code = 2210) 201 MG/DL TRIGLYCERIDES (test code = 2232) 1014 MG/DL HDL CHOLESTEROL (test code = 25 MG/DL 2219) CALC LDL CHOL (test code = 2237) NOTE MG/DL RISK RATIO LDL/HDL (test code = (NOTE) RATIO 2238) HEMOGLOBIN [id number] 00:00:00 Test Item Value Reference Range Interpretation Comments HEMOGLOBIN A1c (test code = 53059) 8.5 % HEMOGLOBIN [id number] 00:00:00 Test Item Value Reference Range Interpretation Comments HEMOGLOBIN A1c (test code = 86453) 8.5 % HEMOGLOBIN [id number] 00:00:00 Test Item Value Reference Range Interpretation Comments HEMOGLOBIN A1c (test code = 36621) 8.5 % COMPREHENSIVE METABOLIC [id number] 00:00:00 Test Item Value Reference Range Interpretation Comments GLUCOSE (test code = 221) 131 MG/DL BUN (test code = 8) 16 MG/DL CREATININE (test code = 2214) 0.71 MG/DL eGFR AMER. (test code 124 ML/MIN/1.73 = 35995) eGFR NON- AMER. (test 107 ML/MIN/1.73 code = 72013) CALC BUN/CREAT (test code = 23 RATIO [...] code = 2219) 33 U/L COMPREHENSIVE METABOLIC [id number] 00:00:00 Test Item Value Reference Range Interpretation Comments GLUCOSE (test code = 2217) 131 MG/DL BUN (test code = 2208) 16 MG/DL CREATININE (test code = 2214) 0.71 MG/DL eGFR AMER. (test code 124 ML/MIN/1.73 = 66948) eGFR NON- AMER. (test 107 ML/MIN/1.73 code = 79979) CALC BUN/CREAT (test code = 23 RATIO [...] (test code = 2219) 33 U/L LIPID [id number] 00:00:00 Test Item Value Reference Range Interpretation Comments CHOLESTEROL (test code = 2210) 201 MG/DL TRIGLYCERIDES (test code = 2232) 1014 MG/DL HDL CHOLESTEROL (test code = 25 MG/DL 2220) CALC LDL CHOL (test code = 2237) NOTE MG/DL RISK RATIO LDL/HDL (test code = (NOTE) RATIO 2238) LIPID [id number] 00:00:00 Test Item Value Reference Range Interpretation Comments CHOLESTEROL (test code = 2210) 201 MG/DL TRIGLYCERIDES (test code = 2232) 1014 MG/DL HDL CHOLESTEROL (test code = 25 MG/DL 2220) CALC LDL CHOL (test code = 2237) NOTE MG/DL RISK RATIO LDL/HDL (test code = (NOTE) RATIO 2238) HEMOGLOBIN [id number] 00:00:00 Test Item Value Reference Range Interpretation Comments HEMOGLOBIN A1c (test code = 72049) 8.5 % HEMOGLOBIN [id number] 00:00:00 Test Item Value Reference Range Interpretation Comments HEMOGLOBIN A1c (test code = 78731) 8.5 % HEMOGLOBIN [id number] 00:00:00 Test Item Value Reference Range Interpretation Comments HEMOGLOBIN A1c (test code = 81348) 8.5 % COMPREHENSIVE METABOLIC [id number] 00:00:00 Test Item Value Reference Range Interpretation Comments GLUCOSE (test code = 2217) 131 MG/DL BUN (test code = 2208) 16 MG/DL CREATININE (test code = 2214) 0.71 MG/DL eGFR AMER. (test code 124 ML/MIN/1.73 = 38840) eGFR NON- AMER. (test 107 ML/MIN/1.73 code = 34343) CALC BUN/CREAT (test code = 23 RATIO [...] code = 2219) 33 U/L COMPREHENSIVE METABOLIC [id number] 00:00:00 Test Item Value Reference Range Interpretation Comments GLUCOSE (test code = 2217) 131 MG/DL BUN (test code = 2208) 16 MG/DL CREATININE (test code = 2214) 0.71 MG/DL eGFR AMER. (test code 124 ML/MIN/1.73 = 59664) eGFR NON- AMER. (test 107 ML/MIN/1.73 code = 60381) CALC BUN/CREAT (test code = 23 RATIO [...] (test code = 2219) 33 U/L LIPID [id number] 00:00:00 Test Item Value Reference Range Interpretation Comments CHOLESTEROL (test code = 2210) 201 MG/DL TRIGLYCERIDES (test code = 2232) 1014 MG/DL HDL CHOLESTEROL (test code = 25 MG/DL 2220) CALC LDL CHOL (test code = 2237) NOTE MG/DL RISK RATIO LDL/HDL (test code = (NOTE) RATIO 2238) LIPID [id number] 00:00:00 Test Item Value Reference Range Interpretation Comments CHOLESTEROL (test code = 2210) 201 MG/DL TRIGLYCERIDES (test code = 2232) 1014 MG/DL HDL CHOLESTEROL (test code = 25 MG/DL 2220) CALC LDL CHOL (test code = 2237) NOTE MG/DL RISK RATIO LDL/HDL (test code = (NOTE) RATIO 2238) HEMOGLOBIN [id number] 00:00:00 Test Item Value Reference Range Interpretation Comments HEMOGLOBIN A1c (test code = 53042) 8.5 % HEMOGLOBIN [id number] 00:00:00 Test Item Value Reference Range Interpretation Comments HEMOGLOBIN A1c (test code = 58280) 8.5 % HEMOGLOBIN [id number] 00:00:00 Test Item Value Reference Range Interpretation Comments HEMOGLOBIN A1c (test code = 50966) 8.5 % COMPREHENSIVE METABOLIC [id number] 00:00:00 Test Item Value Reference Range Interpretation Comments GLUCOSE (test code = 2217) 131 MG/DL BUN (test code = 2208) 16 MG/DL CREATININE (test code = 2214) 0.71 MG/DL eGFR AMER. (test code 124 ML/MIN/1.73 = 35059) eGFR NON- AMER. (test 107 ML/MIN/1.73 code = 95541) CALC BUN/CREAT (test code = 23 RATIO [...] code = 2219) 33 U/L COMPREHENSIVE METABOLIC [id number] 00:00:00 Test Item Value Reference Range Interpretation Comments GLUCOSE (test code = 2217) 131 MG/DL BUN (test code = 2208) 16 MG/DL CREATININE (test code = 2214) 0.71 MG/DL eGFR AMER. (test code 124 ML/MIN/1.73 = 20323) eGFR NON- AMER. (test 107 ML/MIN/1.73 code = 77930) CALC BUN/CREAT (test code = 23 RATIO [...] (test code = 2219) 33 U/L LIPID [id number] 00:00:00 Test Item Value Reference Range Interpretation Comments CHOLESTEROL (test code = 2210) 201 MG/DL TRIGLYCERIDES (test code = 2232) 1014 MG/DL HDL CHOLESTEROL (test code = 25 MG/DL 2220) CALC LDL CHOL (test code = 2237) NOTE MG/DL RISK RATIO LDL/HDL (test code = (NOTE) RATIO 2238) LIPID [id number] 00:00:00 Test Item Value Reference Range Interpretation Comments CHOLESTEROL (test code = 2210) 201 MG/DL TRIGLYCERIDES (test code = 2232) 1014 MG/DL HDL CHOLESTEROL (test code = 25 MG/DL 2220) CALC LDL CHOL (test code = 2237) NOTE MG/DL RISK RATIO LDL/HDL (test code = (NOTE) RATIO 2238) HEMOGLOBIN [id number] 00:00:00 Test Item Value Reference Range Interpretation Comments HEMOGLOBIN A1c (test code = 10733) 8.5 % HEMOGLOBIN [id number] 00:00:00 Test Item Value Reference Range Interpretation Comments HEMOGLOBIN A1c (test code = 14151) 8.5 % COMPREHENSIVE METABOLIC [id number] 00:00:00 Test Item Value Reference Range Interpretation Comments GLUCOSE (test code = 2217) 131 MG/DL BUN (test code = 2208) 16 MG/DL CREATININE (test code = 2214) 0.71 MG/DL eGFR AMER. (test code 124 ML/MIN/1.73 = 06242) eGFR NON- AMER. (test 107 ML/MIN/1.73 code = 89616) CALC BUN/CREAT (test code = 23 RATIO [...] (test code = 2219) 33 U/L LIPID [id number] 00:00:00 Test Item Value Reference Range Interpretation Comments CHOLESTEROL (test code = 2210) 201 MG/DL TRIGLYCERIDES (test code = 2232) 1014 MG/DL HDL CHOLESTEROL (test code = 25 MG/DL 2220) CALC LDL CHOL (test code = 2237) NOTE MG/DL RISK RATIO LDL/HDL (test code = (NOTE) RATIO 2238) HEMOGLOBIN [id number] 00:00:00 Test Item Value Reference Range Interpretation Comments HEMOGLOBIN A1c (test code = 60081) 8.5 % HEMOGLOBIN [id number] 00:00:00 Test Item Value Reference Range Interpretation Comments HEMOGLOBIN A1c (test code = 13474) 8.5 % HEMOGLOBIN [id number] 00:00:00 Test Item Value Reference Range Interpretation Comments HEMOGLOBIN A1c (test code = 71186) 8.5 % COMPREHENSIVE METABOLIC [id number] 00:00:00 Test Item Value Reference Range Interpretation Comments GLUCOSE (test code = 2217) 131 MG/DL BUN (test code = 2208) 16 MG/DL CREATININE (test code = 2214) 0.71 MG/DL eGFR AMER. (test code 124 ML/MIN/1.73 = 37746) eGFR NON- AMER. (test 107 ML/MIN/1.73 code = 10613) CALC BUN/CREAT (test code = 23 RATIO [...] code = 2219) 33 U/L COMPREHENSIVE METABOLIC [id number] 00:00:00 Test Item Value Reference Range Interpretation Comments GLUCOSE (test code = 2217) 131 MG/DL BUN (test code = 2208) 16 MG/DL CREATININE (test code = 2214) 0.71 MG/DL eGFR AMER. (test code 124 ML/MIN/1.73 = 95296) eGFR NON- AMER. (test 107 ML/MIN/1.73 code = 43481) CALC BUN/CREAT (test code = 23 RATIO [...] (test code = 2219) 33 U/L LIPID [id number] 00:00:00 Test Item Value Reference Range Interpretation Comments CHOLESTEROL (test code = 2210) 201 MG/DL TRIGLYCERIDES (test code = 2232) 1014 MG/DL HDL CHOLESTEROL (test code = 25 MG/DL 2220) CALC LDL CHOL (test code = 2237) NOTE MG/DL RISK RATIO LDL/HDL (test code = (NOTE) RATIO 2238) LIPID [id number] 00:00:00 Test Item Value Reference Range Interpretation Comments CHOLESTEROL (test code = 2210) 201 MG/DL TRIGLYCERIDES (test code = 2232) 1014 MG/DL HDL CHOLESTEROL (test code = 25 MG/DL 2220) CALC LDL CHOL (test code = 2237) NOTE MG/DL RISK RATIO LDL/HDL (test code = (NOTE) RATIO 2238) HEMOGLOBIN [id number] 00:00:00 Test Item Value Reference Range Interpretation Comments HEMOGLOBIN A1c (test code = 20627) 8.5 % HEMOGLOBIN [id number] 00:00:00 Test Item Value Reference Range Interpretation Comments HEMOGLOBIN A1c (test code = 99952) 8.5 % HEMOGLOBIN [id number] 00:00:00 Test Item Value Reference Range Interpretation Comments HEMOGLOBIN A1c (test code = 66103) 8.5 % COMPREHENSIVE METABOLIC [id number] 00:00:00 Test Item Value Reference Range Interpretation Comments GLUCOSE (test code = 2217) 131 MG/DL BUN (test code = 2208) 16 MG/DL CREATININE (test code = 2214) 0.71 MG/DL eGFR AMER. (test code 124 ML/MIN/1.73 = 19754) eGFR NON- AMER. (test 107 ML/MIN/1.73 code = 00249) CALC BUN/CREAT (test code = 23 RATIO [...] code = 2219) 33 U/L COMPREHENSIVE METABOLIC [id number] 00:00:00 Test Item Value Reference Range Interpretation Comments GLUCOSE (test code = 2217) 131 MG/DL BUN (test code = 2208) 16 MG/DL CREATININE (test code = 2214) 0.71 MG/DL eGFR AMER. (test code 124 ML/MIN/1.73 = 40791) eGFR NON- AMER. (test 107 ML/MIN/1.73 code = 89661) CALC BUN/CREAT (test code = 23 RATIO [...] (test code = 2219) 33 U/L LIPID [id number] 00:00:00 Test Item Value Reference Range Interpretation Comments CHOLESTEROL (test code = 2210) 201 MG/DL TRIGLYCERIDES (test code = 2232) 1014 MG/DL HDL CHOLESTEROL (test code = 25 MG/DL 2220) CALC LDL CHOL (test code = 2237) NOTE MG/DL RISK RATIO LDL/HDL (test code = (NOTE) RATIO 2238) LIPID [id number] 00:00:00 Test Item Value Reference Range Interpretation Comments CHOLESTEROL (test code = 2210) 201 MG/DL TRIGLYCERIDES (test code = 2232) 1014 MG/DL HDL CHOLESTEROL (test code = 25 MG/DL 2220) CALC LDL CHOL (test code = 2237) NOTE MG/DL RISK RATIO LDL/HDL (test code = (NOTE) RATIO 2238) HEMOGLOBIN [id number] 00:00:00 Test Item Value Reference Range Interpretation Comments HEMOGLOBIN A1c (test code = 80013) 8.5 % HEMOGLOBIN [id number] 00:00:00 Test Item Value Reference Range Interpretation Comments HEMOGLOBIN A1c (test code = 07520) 8.5 % HEMOGLOBIN [id number] 00:00:00 Test Item Value Reference Range Interpretation Comments HEMOGLOBIN A1c (test code = 17723) 8.5 % COMPREHENSIVE METABOLIC [id number] 00:00:00 Test Item Value Reference Range Interpretation Comments GLUCOSE (test code = 2217) 131 MG/DL BUN (test code = 2208) 16 MG/DL CREATININE (test code = 2214) 0.71 MG/DL eGFR AMER. (test code 124 ML/MIN/1.73 = 58867) eGFR NON- AMER. (test 107 ML/MIN/1.73 code = 56756) CALC BUN/CREAT (test code = 23 RATIO [...] code = 2219) 33 U/L COMPREHENSIVE METABOLIC [id number] 00:00:00 Test Item Value Reference Range Interpretation Comments GLUCOSE (test code = 2217) 131 MG/DL BUN (test code = 2208) 16 MG/DL CREATININE (test code = 2214) 0.71 MG/DL eGFR AMER. (test code 124 ML/MIN/1.73 = 58407) eGFR NON- AMER. (test 107 ML/MIN/1.73 code = 21559) CALC BUN/CREAT (test code = 23 RATIO [...] (test code = 2219) 33 U/L LIPID [id number] 00:00:00 Test Item Value Reference Range Interpretation Comments CHOLESTEROL (test code = 2210) 201 MG/DL TRIGLYCERIDES (test code = 2232) 1014 MG/DL HDL CHOLESTEROL (test code = 25 MG/DL 2220) CALC LDL CHOL (test code = 2237) NOTE MG/DL RISK RATIO LDL/HDL (test code = (NOTE) RATIO 2238) LIPID [id number] 00:00:00 Test Item Value Reference Range Interpretation Comments CHOLESTEROL (test code = 2210) 201 MG/DL TRIGLYCERIDES (test code = 2232) 1014 MG/DL HDL CHOLESTEROL (test code = 25 MG/DL 2220) CALC LDL CHOL (test code = 2237) NOTE MG/DL RISK RATIO LDL/HDL (test code = (NOTE) RATIO 2238) CULTURE, HERPES [id number] 00:00:00 Test Item Value Reference Range Interpretation Comments SPECIMEN SOURCE (test code = 21730) LABIA HERPES CULTURE (test code = 3533) NEGATIVE CULTURE, HERPES [id number] 00:00:00 Test Item Value Reference Range Interpretation Comments SPECIMEN SOURCE (test code = 80850) LABIA HERPES CULTURE (test code = 3533) NEGATIVE CULTURE, HERPES [id number] 00:00:00 Test Item Value Reference Range Interpretation Comments SPECIMEN SOURCE (test code = 57060) LABIA HERPES CULTURE (test code = 3533) NEGATIVE CULTURE, HERPES [id number] 00:00:00 Test Item Value Reference Range Interpretation Comments SPECIMEN SOURCE (test code = 13616) LABIA HERPES CULTURE (test code = 3533) NEGATIVE CULTURE, HERPES [id number] 00:00:00 Test Item Value Reference Range Interpretation Comments SPECIMEN SOURCE (test code = 97721) LABIA HERPES CULTURE (test code = 3533) NEGATIVE CULTURE, HERPES [id number] 00:00:00 Test Item Value Reference Range Interpretation Comments SPECIMEN SOURCE (test code = 90893) LABIA HERPES CULTURE (test code = 3533) NEGATIVE CULTURE, HERPES [id number] 00:00:00 Test Item Value Reference Range Interpretation Comments SPECIMEN SOURCE (test code = 44616) LABIA HERPES CULTURE (test code = 3533) NEGATIVE CULTURE, HERPES [id number] 00:00:00 Test Item Value Reference Range Interpretation Comments SPECIMEN SOURCE (test code = 11319) LABIA HERPES CULTURE (test code = 3533) NEGATIVE CULTURE, HERPES [id number] 00:00:00 Test Item Value Reference Range Interpretation Comments SPECIMEN SOURCE (test code = 64762) LABIA HERPES CULTURE (test code = 3533) NEGATIVE CULTURE, HERPES [id number] 00:00:00 Test Item Value Reference Range Interpretation Comments SPECIMEN SOURCE (test code = 32341) LABIA HERPES CULTURE (test code = 3533) NEGATIVE CULTURE, HERPES [id number] 00:00:00 Test Item Value Reference Range Interpretation Comments SPECIMEN SOURCE (test code = 22346) LABIA HERPES CULTURE (test code = 3533) NEGATIVE CULTURE, HERPES [id number] 00:00:00 Test Item Value Reference Range Interpretation Comments SPECIMEN SOURCE (test code = 97919) LABIA HERPES CULTURE (test code = 3533) NEGATIVE CULTURE, HERPES [id number] 00:00:00 Test Item Value Reference Range Interpretation Comments SPECIMEN SOURCE (test code = 43167) LABIA HERPES CULTURE (test code = 3533) NEGATIVE CULTURE, HERPES [id number] 00:00:00 Test Item Value Reference Range Interpretation Comments SPECIMEN SOURCE (test code = 68217) LABIA HERPES CULTURE (test code = 3533) NEGATIVE CULTURE, HERPES [id number] 00:00:00 Test Item Value Reference Range Interpretation Comments SPECIMEN SOURCE (test code = 21190) LABIA HERPES CULTURE (test code = 3533) NEGATIVE CULTURE, HERPES [id number] 00:00:00 Test Item Value Reference Range Interpretation Comments SPECIMEN SOURCE (test code = 69240) LABIA HERPES CULTURE (test code = 3533) NEGATIVE CULTURE, HERPES [id number] 00:00:00 Test Item Value Reference Range Interpretation Comments SPECIMEN SOURCE (test code = 80652) LABIA HERPES CULTURE (test code = 3533) NEGATIVE CULTURE, HERPES [id number] 00:00:00 Test Item Value Reference Range Interpretation Comments SPECIMEN SOURCE (test code = 40723) LABIA HERPES CULTURE (test code = 3533) NEGATIVE CULTURE, HERPES [id number] 00:00:00 Test Item Value Reference Range Interpretation Comments SPECIMEN SOURCE (test code = 84853) LABIA HERPES CULTURE (test code = 3533) NEGATIVE CULTURE, HERPES [id number] 00:00:00 Test Item Value Reference Range Interpretation Comments SPECIMEN SOURCE (test code = 38713) LABIA HERPES CULTURE (test code = 3533) NEGATIVE CULTURE, HERPES [id number] 00:00:00 Test Item Value Reference Range Interpretation Comments SPECIMEN SOURCE (test code = 27363) LABIA HERPES CULTURE (test code = 3533) NEGATIVE VAGINAL PATHOGENS DNA [id number] 00:00:00 Test Item Value Reference Range Interpretation Comments ANDIE SPECIES (test code = 30344) NEGATIVE G. VAGINALIS (test code = 81691) NEGATIVE T. VAGINALIS (test code = 66812) NEGATIVE VAGINAL PATHOGENS DNA [id number] 00:00:00 Test Item Value Reference Range Interpretation Comments ANDIE SPECIES (test code = 92871) NEGATIVE G. VAGINALIS (test code = 43596) NEGATIVE T. VAGINALIS (test code = 06669) NEGATIVE VAGINAL PATHOGENS DNA [id number] 00:00:00 Test Item Value Reference Range Interpretation Comments ANDIE SPECIES (test code = 37633) NEGATIVE G. VAGINALIS (test code = 11743) NEGATIVE T. VAGINALIS (test code = 76685) NEGATIVE VAGINAL PATHOGENS DNA [id number] 00:00:00 Test Item Value Reference Range Interpretation Comments ANDIE SPECIES (test code = 27197) NEGATIVE G. VAGINALIS (test code = 59689) NEGATIVE T. VAGINALIS (test code = 93840) NEGATIVE VAGINAL PATHOGENS DNA [id number] 00:00:00 Test Item Value Reference Range Interpretation Comments ANDIE SPECIES (test code = 08561) NEGATIVE G. VAGINALIS (test code = 02595) NEGATIVE T. VAGINALIS (test code = 03677) NEGATIVE VAGINAL PATHOGENS DNA [id number] 00:00:00 Test Item Value Reference Range Interpretation Comments ANDIE SPECIES (test code = 02351) NEGATIVE G. VAGINALIS (test code = 41579) NEGATIVE T. VAGINALIS (test code = 84503) NEGATIVE VAGINAL PATHOGENS DNA [id number] 00:00:00 Test Item Value Reference Range Interpretation Comments ANDIE SPECIES (test code = 99666) NEGATIVE G. VAGINALIS (test code = 65462) NEGATIVE T. VAGINALIS (test code = 81373) NEGATIVE VAGINAL PATHOGENS DNA [id number] 00:00:00 Test Item Value Reference Range Interpretation Comments ANDIE SPECIES (test code = 07548) NEGATIVE G. VAGINALIS (test code = 27677) NEGATIVE T. VAGINALIS (test code = 94686) NEGATIVE VAGINAL PATHOGENS DNA [id number] 00:00:00 Test Item Value Reference Range Interpretation Comments ANDIE SPECIES (test code = 95795) NEGATIVE G. VAGINALIS (test code = 48990) NEGATIVE T. VAGINALIS (test code = 40149) NEGATIVE VAGINAL PATHOGENS DNA [id number] 00:00:00 Test Item Value Reference Range Interpretation Comments ANDIE SPECIES (test code = 05059) NEGATIVE G. VAGINALIS (test code = 67152) NEGATIVE T. VAGINALIS (test code = 24761) NEGATIVE VAGINAL PATHOGENS DNA [id number] 00:00:00 Test Item Value Reference Range Interpretation Comments ANDIE SPECIES (test code = 92336) NEGATIVE G. VAGINALIS (test code = 91561) NEGATIVE T. VAGINALIS (test code = 61376) NEGATIVE VAGINAL PATHOGENS DNA [id number] 00:00:00 Test Item Value Reference Range Interpretation Comments ANDIE SPECIES (test code = 67149) NEGATIVE G. VAGINALIS (test code = 03281) NEGATIVE T. VAGINALIS (test code = 06046) NEGATIVE VAGINAL PATHOGENS DNA [id number] 00:00:00 Test Item Value Reference Range Interpretation Comments ANDIE SPECIES (test code = 87134) NEGATIVE G. VAGINALIS (test code = 91618) NEGATIVE T. VAGINALIS (test code = 22093) NEGATIVE VAGINAL PATHOGENS DNA [id number] 00:00:00 Test Item Value Reference Range Interpretation Comments ANDIE SPECIES (test code = 16147) NEGATIVE G. VAGINALIS (test code = 08288) NEGATIVE T. VAGINALIS (test code = 64043) NEGATIVE VAGINAL PATHOGENS DNA [id number] 00:00:00 Test Item Value Reference Range Interpretation Comments ANDIE SPECIES (test code = 10489) NEGATIVE G. VAGINALIS (test code = 90873) NEGATIVE T. VAGINALIS (test code = 26364) NEGATIVE VAGINAL PATHOGENS DNA [id number] 00:00:00 Test Item Value Reference Range Interpretation Comments ANDIE SPECIES (test code = 84190) NEGATIVE G. VAGINALIS (test code = 61912) NEGATIVE T. VAGINALIS (test code = 24749) NEGATIVE VAGINAL PATHOGENS DNA [id number] 00:00:00 Test Item Value Reference Range Interpretation Comments ANDIE SPECIES (test code = 35661) NEGATIVE G. VAGINALIS (test code = 78734) NEGATIVE T. VAGINALIS (test code = 94349) NEGATIVE VAGINAL PATHOGENS DNA [id number] 00:00:00 Test Item Value Reference Range Interpretation Comments ANDIE SPECIES (test code = 08036) NEGATIVE G. VAGINALIS (test code = 20051) NEGATIVE T. VAGINALIS (test code = 50414) NEGATIVE VAGINAL PATHOGENS DNA [id number] 00:00:00 Test Item Value Reference Range Interpretation Comments ANDIE SPECIES (test code = 13062) NEGATIVE G. VAGINALIS (test code = 01413) NEGATIVE T. VAGINALIS (test code = 67830) NEGATIVE VAGINAL PATHOGENS DNA [id number] 00:00:00 Test Item Value Reference Range Interpretation Comments ANDIE SPECIES (test code = 29284) NEGATIVE G. VAGINALIS (test code = 58698) NEGATIVE T. VAGINALIS (test code = 95891) NEGATIVE VAGINAL PATHOGENS DNA [id number] 00:00:00 Test Item Value Reference Range Interpretation Comments ANDIE SPECIES (test code = 97867) NEGATIVE G. VAGINALIS (test code = 39466) NEGATIVE T. VAGINALIS (test code = 93777) NEGATIVE COMPREHENSIVE METABOLIC [id number] 00:00:00 Test Item Value Reference Range Interpretation Comments GLUCOSE (test code = 2217) 138 MG/DL BUN (test code = 2208) 13 MG/DL CREATININE (test code = 2214) 0.50 MG/DL eGFR AMER. (test code 141 ML/MIN/1.73 = 96395) eGFR NON- AMER. (test 122 ML/MIN/1.73 code = 49689) CALC BUN/CREAT (test code = 26 RATIO [...] code = 2219) 41 U/L COMPREHENSIVE METABOLIC [id number] 00:00:00 Test Item Value Reference Range Interpretation Comments GLUCOSE (test code = 2217) 138 MG/DL BUN (test code = 2208) 13 MG/DL CREATININE (test code = 2214) 0.50 MG/DL eGFR AMER. (test code 141 ML/MIN/1.73 = 54153) eGFR NON- AMER. (test 122 ML/MIN/1.73 code = 16116) CALC BUN/CREAT (test code = 26 RATIO [...] (test code = 2219) 41 U/L LIPID [id number] 00:00:00 Test Item Value Reference Range Interpretation Comments CHOLESTEROL (test code = 2210) 359 MG/DL TRIGLYCERIDES (test code = 2232) 1659 MG/DL HDL CHOLESTEROL (test code = 15 MG/DL 2220) CALC LDL CHOL (test code = 2237) NOTE MG/DL RISK RATIO LDL/HDL (test code = (NOTE) RATIO 2238) LIPID [id number] 00:00:00 Test Item Value Reference Range Interpretation Comments CHOLESTEROL (test code = 2210) 359 MG/DL TRIGLYCERIDES (test code = 2232) 1659 MG/DL HDL CHOLESTEROL (test code = 15 MG/DL 2220) CALC LDL CHOL (test code = 2237) NOTE MG/DL RISK RATIO LDL/HDL (test code = (NOTE) RATIO 2238) CBC W/AUTO [id number] 00:00:00 Test Item Value Reference Range Interpretation [...] code = 1015) 287 K/UL CBC W/AUTO [id number] 00:00:00 Test Item Value Reference Range Interpretation [...] code = 1015) 287 K/UL CBC W/AUTO [id number] 00:00:00 Test Item Value Reference Range Interpretation [...] (test code = 1015) 287 K/UL HEMOGLOBIN [id number] 00:00:00 Test Item Value Reference Range Interpretation Comments HEMOGLOBIN A1c (test code = 21088) 9.8 % HEMOGLOBIN [id number] 00:00:00 Test Item Value Reference Range Interpretation Comments HEMOGLOBIN A1c (test code = 26218) 9.8 % HEMOGLOBIN [id number] 00:00:00 Test Item Value Reference Range Interpretation Comments HEMOGLOBIN A1c (test code = 05329) 9.8 % [id number] 00:00:00 Test Item Value Reference Range Interpretation Comments TSH (test code = 2821) 2.110 UIU/ML [id number] 00:00:00 Test Item Value Reference Range Interpretation Comments TSH (test code = 2821) 2.110 UIU/ML [id number] 00:00:00 Test Item Value Reference Range Interpretation Comments TSH (test code = 2821) 2.110 UIU/ML COMPREHENSIVE METABOLIC [id number] 00:00:00 Test Item Value Reference Range Interpretation Comments GLUCOSE (test code = 2217) 138 MG/DL BUN (test code = 2208) 13 MG/DL CREATININE (test code = 2214) 0.50 MG/DL eGFR AMER. (test code 141 ML/MIN/1.73 = 33778) eGFR NON- AMER. (test 122 ML/MIN/1.73 code = 04112) CALC BUN/CREAT (test code = 26 RATIO [...] code = 2219) 41 U/L COMPREHENSIVE METABOLIC [id number] 00:00:00 Test Item Value Reference Range Interpretation Comments GLUCOSE (test code = 2217) 138 MG/DL BUN (test code = 2208) 13 MG/DL CREATININE (test code = 2214) 0.50 MG/DL eGFR AMER. (test code 141 ML/MIN/1.73 = 14794) eGFR NON- AMER. (test 122 ML/MIN/1.73 code = 75353) CALC BUN/CREAT (test code = 26 RATIO [...] (test code = 2219) 41 U/L LIPID [id number] 00:00:00 Test Item Value Reference Range Interpretation Comments CHOLESTEROL (test code = 2210) 359 MG/DL TRIGLYCERIDES (test code = 2232) 1659 MG/DL HDL CHOLESTEROL (test code = 15 MG/DL 0) CALC LDL CHOL (test code = 2237) NOTE MG/DL RISK RATIO LDL/HDL (test code = (NOTE) RATIO 2238) LIPID [id number] 00:00:00 Test Item Value Reference Range Interpretation Comments CHOLESTEROL (test code = 2210) 359 MG/DL TRIGLYCERIDES (test code = 2232) 1659 MG/DL HDL CHOLESTEROL (test code = 15 MG/DL 2220) CALC LDL CHOL (test code = 2237) NOTE MG/DL RISK RATIO LDL/HDL (test code = (NOTE) RATIO 2238) CBC W/AUTO [id number] 00:00:00 Test Item Value Reference Range Interpretation [...] code = 1015) 287 K/UL CBC W/AUTO [id number] 00:00:00 Test Item Value Reference Range Interpretation [...] code = 1015) 287 K/UL CBC W/AUTO [id number] 00:00:00 Test Item Value Reference Range Interpretation [...] (test code = 1015) 287 K/UL HEMOGLOBIN [id number] 00:00:00 Test Item Value Reference Range Interpretation Comments HEMOGLOBIN A1c (test code = 05249) 9.8 % HEMOGLOBIN [id number] 00:00:00 Test Item Value Reference Range Interpretation Comments HEMOGLOBIN A1c (test code = 91183) 9.8 % HEMOGLOBIN [id number] 00:00:00 Test Item Value Reference Range Interpretation Comments HEMOGLOBIN A1c (test code = 51298) 9.8 % [id number] 00:00:00 Test Item Value Reference Range Interpretation Comments TSH (test code = 2821) 2.110 UIU/ML [id number] 00:00:00 Test Item Value Reference Range Interpretation Comments TSH (test code = 2821) 2.110 UIU/ML [id number] 00:00:00 Test Item Value Reference Range Interpretation Comments TSH (test code = 2821) 2.110 UIU/ML COMPREHENSIVE METABOLIC [id number] 00:00:00 Test Item Value Reference Range Interpretation Comments GLUCOSE (test code = 2217) 138 MG/DL BUN (test code = 2208) 13 MG/DL CREATININE (test code = 2214) 0.50 MG/DL eGFR AMER. (test code 141 ML/MIN/1.73 = 39268) eGFR NON- AMER. (test 122 ML/MIN/1.73 code = 86525) CALC BUN/CREAT (test code = 26 RATIO [...] code = 2219) 41 U/L COMPREHENSIVE METABOLIC [id number] 00:00:00 Test Item Value Reference Range Interpretation Comments GLUCOSE (test code = 2217) 138 MG/DL BUN (test code = 2208) 13 MG/DL CREATININE (test code = 2214) 0.50 MG/DL eGFR AMER. (test code 141 ML/MIN/1.73 = 25182) eGFR NON- AMER. (test 122 ML/MIN/1.73 code = 11090) CALC BUN/CREAT (test code = 26 RATIO [...] (test code = 2219) 41 U/L LIPID [id number] 00:00:00 Test Item Value Reference Range Interpretation Comments CHOLESTEROL (test code = 2210) 359 MG/DL TRIGLYCERIDES (test code = 2232) 1659 MG/DL HDL CHOLESTEROL (test code = 15 MG/DL 2220) CALC LDL CHOL (test code = 2237) NOTE MG/DL RISK RATIO LDL/HDL (test code = (NOTE) RATIO 2238) LIPID [id number] 00:00:00 Test Item Value Reference Range Interpretation Comments CHOLESTEROL (test code = 2210) 359 MG/DL TRIGLYCERIDES (test code = 2232) 1659 MG/DL HDL CHOLESTEROL (test code = 15 MG/DL 2220) CALC LDL CHOL (test code = 2237) NOTE MG/DL RISK RATIO LDL/HDL (test code = (NOTE) RATIO 2238) CBC W/AUTO [id number] 00:00:00 Test Item Value Reference Range Interpretation [...] code = 1015) 287 K/UL CBC W/AUTO [id number] 00:00:00 Test Item Value Reference Range Interpretation [...] code = 1015) 287 K/UL CBC W/AUTO [id number] 00:00:00 Test Item Value Reference Range Interpretation [...] (test code = 1015) 287 K/UL HEMOGLOBIN [id number] 00:00:00 Test Item Value Reference Range Interpretation Comments HEMOGLOBIN A1c (test code = 19058) 9.8 % HEMOGLOBIN [id number] 00:00:00 Test Item Value Reference Range Interpretation Comments HEMOGLOBIN A1c (test code = 64855) 9.8 % HEMOGLOBIN [id number] 00:00:00 Test Item Value Reference Range Interpretation Comments HEMOGLOBIN A1c (test code = 88080) 9.8 % [id number] 00:00:00 Test Item Value Reference Range Interpretation Comments TSH (test code = 2821) 2.110 UIU/ML [id number] 00:00:00 Test Item Value Reference Range Interpretation Comments TSH (test code = 2821) 2.110 UIU/ML [id number] 00:00:00 Test Item Value Reference Range Interpretation Comments TSH (test code = 2821) 2.110 UIU/ML COMPREHENSIVE METABOLIC [id number] 00:00:00 Test Item Value Reference Range Interpretation Comments GLUCOSE (test code = 2217) 138 MG/DL BUN (test code = 2208) 13 MG/DL CREATININE (test code = 2214) 0.50 MG/DL eGFR AMER. (test code 141 ML/MIN/1.73 = 84283) eGFR NON- AMER. (test 122 ML/MIN/1.73 code = 26605) CALC BUN/CREAT (test code = 26 RATIO [...] code = 2219) 41 U/L COMPREHENSIVE METABOLIC [id number] 00:00:00 Test Item Value Reference Range Interpretation Comments GLUCOSE (test code = 2217) 138 MG/DL BUN (test code = 2208) 13 MG/DL CREATININE (test code = 2214) 0.50 MG/DL eGFR AMER. (test code 141 ML/MIN/1.73 = 82724) eGFR NON- AMER. (test 122 ML/MIN/1.73 code = 82771) CALC BUN/CREAT (test code = 26 RATIO [...] (test code = 2219) 41 U/L LIPID [id number] 00:00:00 Test Item Value Reference Range Interpretation Comments CHOLESTEROL (test code = 2210) 359 MG/DL TRIGLYCERIDES (test code = 2232) 1659 MG/DL HDL CHOLESTEROL (test code = 15 MG/DL 2220) CALC LDL CHOL (test code = 2237) NOTE MG/DL RISK RATIO LDL/HDL (test code = (NOTE) RATIO 2238) LIPID [id number] 00:00:00 Test Item Value Reference Range Interpretation Comments CHOLESTEROL (test code = 2210) 359 MG/DL TRIGLYCERIDES (test code = 2232) 1659 MG/DL HDL CHOLESTEROL (test code = 15 MG/DL 2220) CALC LDL CHOL (test code = 2237) NOTE MG/DL RISK RATIO LDL/HDL (test code = (NOTE) RATIO 2238) CBC W/AUTO [id number] 00:00:00 Test Item Value Reference Range Interpretation [...] code = 1015) 287 K/UL CBC W/AUTO [id number] 00:00:00 Test Item Value Reference Range Interpretation [...] code = 1015) 287 K/UL CBC W/AUTO [id number] 00:00:00 Test Item Value Reference Range Interpretation [...] (test code = 1015) 287 K/UL HEMOGLOBIN [id number] 00:00:00 Test Item Value Reference Range Interpretation Comments HEMOGLOBIN A1c (test code = 13423) 9.8 % HEMOGLOBIN [id number] 00:00:00 Test Item Value Reference Range Interpretation Comments HEMOGLOBIN A1c (test code = 18039) 9.8 % HEMOGLOBIN [id number] 00:00:00 Test Item Value Reference Range Interpretation Comments HEMOGLOBIN A1c (test code = 72661) 9.8 % [id number] 00:00:00 Test Item Value Reference Range Interpretation Comments TSH (test code = 2821) 2.110 UIU/ML [id number] 00:00:00 Test Item Value Reference Range Interpretation Comments TSH (test code = 2821) 2.110 UIU/ML [id number] 00:00:00 Test Item Value Reference Range Interpretation Comments TSH (test code = 2821) 2.110 UIU/ML COMPREHENSIVE METABOLIC [id number] 00:00:00 Test Item Value Reference Range Interpretation Comments GLUCOSE (test code = 2217) 138 MG/DL BUN (test code = 2208) 13 MG/DL CREATININE (test code = 2214) 0.50 MG/DL eGFR AMER. (test code 141 ML/MIN/1.73 = 35730) eGFR NON- AMER. (test 122 ML/MIN/1.73 code = 19652) CALC BUN/CREAT (test code = 26 RATIO [...] code = 2219) 41 U/L COMPREHENSIVE METABOLIC [id number] 00:00:00 Test Item Value Reference Range Interpretation Comments GLUCOSE (test code = 2217) 138 MG/DL BUN (test code = 2208) 13 MG/DL CREATININE (test code = 2214) 0.50 MG/DL eGFR AMER. (test code 141 ML/MIN/1.73 = 34491) eGFR NON- AMER. (test 122 ML/MIN/1.73 code = 36127) CALC BUN/CREAT (test code = 26 RATIO [...] (test code = 2219) 41 U/L LIPID [id number] 00:00:00 Test Item Value Reference Range Interpretation Comments CHOLESTEROL (test code = 2210) 359 MG/DL TRIGLYCERIDES (test code = 2232) 1659 MG/DL HDL CHOLESTEROL (test code = 15 MG/DL 2220) CALC LDL CHOL (test code = 2237) NOTE MG/DL RISK RATIO LDL/HDL (test code = (NOTE) RATIO 2238) LIPID [id number] 00:00:00 Test Item Value Reference Range Interpretation Comments CHOLESTEROL (test code = 2210) 359 MG/DL TRIGLYCERIDES (test code = 2232) 1659 MG/DL HDL CHOLESTEROL (test code = 15 MG/DL 2220) CALC LDL CHOL (test code = 2237) NOTE MG/DL RISK RATIO LDL/HDL (test code = (NOTE) RATIO 2238) CBC W/AUTO [id number] 00:00:00 Test Item Value Reference Range Interpretation [...] code = 1015) 287 K/UL CBC W/AUTO [id number] 00:00:00 Test Item Value Reference Range Interpretation [...] code = 1015) 287 K/UL CBC W/AUTO [id number] 00:00:00 Test Item Value Reference Range Interpretation [...] (test code = 1015) 287 K/UL HEMOGLOBIN [id number] 00:00:00 Test Item Value Reference Range Interpretation Comments HEMOGLOBIN A1c (test code = 84798) 9.8 % HEMOGLOBIN [id number] 00:00:00 Test Item Value Reference Range Interpretation Comments HEMOGLOBIN A1c (test code = 16341) 9.8 % HEMOGLOBIN [id number] 00:00:00 Test Item Value Reference Range Interpretation Comments HEMOGLOBIN A1c (test code = 39768) 9.8 % [id number] 00:00:00 Test Item Value Reference Range Interpretation Comments TSH (test code = 2821) 2.110 UIU/ML [id number] 00:00:00 Test Item Value Reference Range Interpretation Comments TSH (test code = 2821) 2.110 UIU/ML [id number] 00:00:00 Test Item Value Reference Range Interpretation Comments TSH (test code = 2821) 2.110 UIU/ML COMPREHENSIVE METABOLIC [id number] 00:00:00 Test Item Value Reference Range Interpretation Comments GLUCOSE (test code = 2217) 138 MG/DL BUN (test code = 2208) 13 MG/DL CREATININE (test code = 2214) 0.50 MG/DL eGFR AMER. (test code 141 ML/MIN/1.73 = 77046) eGFR NON- AMER. (test 122 ML/MIN/1.73 code = 78854) CALC BUN/CREAT (test code = 26 RATIO [...] code = 2219) 41 U/L COMPREHENSIVE METABOLIC [id number] 00:00:00 Test Item Value Reference Range Interpretation Comments GLUCOSE (test code = 2217) 138 MG/DL BUN (test code = 2208) 13 MG/DL CREATININE (test code = 2214) 0.50 MG/DL eGFR AMER. (test code 141 ML/MIN/1.73 = 95202) eGFR NON- AMER. (test 122 ML/MIN/1.73 code = 08705) CALC BUN/CREAT (test code = 26 RATIO [...] A/G RATIO (test code = 1.2 RATIO 223) BILIRUBIN, TOTAL (test code = 0.2 MG/DL 2206) ALKALINE PHOSPHATASE (test 58 U/L code = 2204) AST (test code = 2218) 39 U/L ALT (test code = 2219) 41 U/L LIPID [id number] 00:00:00 Test Item Value Reference Range Interpretation Comments CHOLESTEROL (test code = 2210) 359 MG/DL TRIGLYCERIDES (test code = 2232) 1659 MG/DL HDL CHOLESTEROL (test code = 15 MG/DL 2220) CALC LDL CHOL (test code = 2237) NOTE MG/DL RISK RATIO LDL/HDL (test code = (NOTE) RATIO 2238) LIPID [id number] 00:00:00 Test Item Value Reference Range Interpretation Comments CHOLESTEROL (test code = 2210) 359 MG/DL TRIGLYCERIDES (test code = 2232) 1659 MG/DL HDL CHOLESTEROL (test code = 15 MG/DL 2220) CALC LDL CHOL (test code = 2237) NOTE MG/DL RISK RATIO LDL/HDL (test code = (NOTE) RATIO 2238) CBC W/AUTO [id number] 00:00:00 Test Item Value Reference Range Interpretation [...] code = 1015) 287 K/UL CBC W/AUTO [id number] 00:00:00 Test Item Value Reference Range Interpretation [...] code = 1015) 287 K/UL CBC W/AUTO [id number] 00:00:00 Test Item Value Reference Range Interpretation [...] (test code = 1015) 287 K/UL HEMOGLOBIN [id number] 00:00:00 Test Item Value Reference Range Interpretation Comments HEMOGLOBIN A1c (test code = 95387) 9.8 % HEMOGLOBIN [id number] 00:00:00 Test Item Value Reference Range Interpretation Comments HEMOGLOBIN A1c (test code = 66838) 9.8 % HEMOGLOBIN [id number] 00:00:00 Test Item Value Reference Range Interpretation Comments HEMOGLOBIN A1c (test code = 82718) 9.8 % [id number] 00:00:00 Test Item Value Reference Range Interpretation Comments TSH (test code = 2821) 2.110 UIU/ML [id number] 00:00:00 Test Item Value Reference Range Interpretation Comments TSH (test code = 2821) 2.110 UIU/ML [id number] 00:00:00 Test Item Value Reference Range Interpretation Comments TSH (test code = 2821) 2.110 UIU/ML COMPREHENSIVE METABOLIC [id number] 00:00:00 Test Item Value Reference Range Interpretation Comments GLUCOSE (test code = 2217) 138 MG/DL BUN (test code = 2208) 13 MG/DL CREATININE (test code = 2214) 0.50 MG/DL eGFR AMER. (test code 141 ML/MIN/1.73 = 17709) eGFR NON- AMER. (test 122 ML/MIN/1.73 code = 88270) CALC BUN/CREAT (test code = 26 RATIO [...] code = 2219) 41 U/L COMPREHENSIVE METABOLIC [id number] 00:00:00 Test Item Value Reference Range Interpretation Comments GLUCOSE (test code = 2217) 138 MG/DL BUN (test code = 2208) 13 MG/DL CREATININE (test code = 2214) 0.50 MG/DL eGFR AMER. (test code 141 ML/MIN/1.73 = 04505) eGFR NON- AMER. (test 122 ML/MIN/1.73 code = 80392) CALC BUN/CREAT (test code = 26 RATIO 2235) SODIUM (test code = 2231) 141 MEQ/L POTASSIUM (test code = 2228) 4.3 MEQ/L CHLORIDE (test code = 2215) 99 MEQ/L CARBON DIOXIDE (test code = 24 MEQ/L 2205) CALCIUM (test code = 2209) 9.3 MG/DL PROTEIN, TOTAL (test code = 7.6 G/DL 2228) ALBUMIN (test code = 220) 4.2 G/DL CALC GLOBULIN (test code = 3.4 G/DL 2239) CALC A/G RATIO (test code = 1.2 RATIO 2233) BILIRUBIN, TOTAL (test code = 0.2 MG/DL 2206) ALKALINE PHOSPHATASE (test 58 U/L code = 2204) AST (test code = 2218) 39 U/L ALT (test code = 2219) 41 U/L LIPID [id number] 00:00:00 Test Item Value Reference Range Interpretation Comments CHOLESTEROL (test code = 2210) 359 MG/DL TRIGLYCERIDES (test code = 2232) 1659 MG/DL HDL CHOLESTEROL (test code = 15 MG/DL 2220) CALC LDL CHOL (test code = 2237) NOTE MG/DL RISK RATIO LDL/HDL (test code = (NOTE) RATIO 2238) LIPID [id number] 00:00:00 Test Item Value Reference Range Interpretation Comments CHOLESTEROL (test code = 2210) 359 MG/DL TRIGLYCERIDES (test code = 2232) 1659 MG/DL HDL CHOLESTEROL (test code = 15 MG/DL 2220) CALC LDL CHOL (test code = 2237) NOTE MG/DL RISK RATIO LDL/HDL (test code = (NOTE) RATIO 2238) CBC W/AUTO [id number] 00:00:00 Test Item Value Reference Range Interpretation [...] code = 1015) 287 K/UL CBC W/AUTO [id number] 00:00:00 Test Item Value Reference Range Interpretation [...] code = 1015) 287 K/UL CBC W/AUTO [id number] 00:00:00 Test Item Value Reference Range Interpretation [...] (test code = 1015) 287 K/UL HEMOGLOBIN [id number] 00:00:00 Test Item Value Reference Range Interpretation Comments HEMOGLOBIN A1c (test code = 27182) 9.8 % HEMOGLOBIN [id number] 00:00:00 Test Item Value Reference Range Interpretation Comments HEMOGLOBIN A1c (test code = 80969) 9.8 % HEMOGLOBIN [id number] 00:00:00 Test Item Value Reference Range Interpretation Comments HEMOGLOBIN A1c (test code = 59446) 9.8 % [id number] 00:00:00 Test Item Value Reference Range Interpretation Comments TSH (test code = 2821) 2.110 UIU/ML [id number] 00:00:00 Test Item Value Reference Range Interpretation Comments TSH (test code = 2821) 2.110 UIU/ML [id number] 00:00:00 Test Item Value Reference Range Interpretation Comments TSH (test code = 2821) 2.110 UIU/ML COMPREHENSIVE METABOLIC [id number] 00:00:00 Test Item Value Reference Range Interpretation Comments GLUCOSE (test code = 2217) 138 MG/DL BUN (test code = 2208) 13 MG/DL CREATININE (test code = 2214) 0.50 MG/DL eGFR AMER. (test code 141 ML/MIN/1.73 = 11022) eGFR NON- AMER. (test 122 ML/MIN/1.73 code = 91780) CALC BUN/CREAT (test code = 26 RATIO [...] (test code = 2219) 41 U/L LIPID [id number] 00:00:00 Test Item Value Reference Range Interpretation Comments CHOLESTEROL (test code = 2210) 359 MG/DL TRIGLYCERIDES (test code = 2232) 1659 MG/DL HDL CHOLESTEROL (test code = 15 MG/DL 2220) CALC LDL CHOL (test code = 2237) NOTE MG/DL RISK RATIO LDL/HDL (test code = (NOTE) RATIO 2238) CBC W/AUTO [id number] 00:00:00 Test Item Value Reference Range Interpretation [...] code = 1015) 287 K/UL CBC W/AUTO [id number] 00:00:00 Test Item Value Reference Range Interpretation [...] (test code = 1015) 287 K/UL HEMOGLOBIN [id number] 00:00:00 Test Item Value Reference Range Interpretation Comments HEMOGLOBIN A1c (test code = 82621) 9.8 % HEMOGLOBIN [id number] 00:00:00 Test Item Value Reference Range Interpretation Comments HEMOGLOBIN A1c (test code = 67567) 9.8 % COMPREHENSIVE METABOLIC [id number] 00:00:00 Test Item Value Reference Range Interpretation Comments GLUCOSE (test code = 2217) 138 MG/DL BUN (test code = 2208) 13 MG/DL CREATININE (test code = 2214) 0.50 MG/DL eGFR AMER. (test code 141 ML/MIN/1.73 = 82608) eGFR NON- AMER. (test 122 ML/MIN/1.73 code = 05804) CALC BUN/CREAT (test code = 26 RATIO [...] code = 2219) 41 U/L COMPREHENSIVE METABOLIC [id number] 00:00:00 Test Item Value Reference Range Interpretation Comments GLUCOSE (test code = 2217) 138 MG/DL BUN (test code = 2208) 13 MG/DL CREATININE (test code = 2214) 0.50 MG/DL eGFR AMER. (test code 141 ML/MIN/1.73 = 39716) eGFR NON- AMER. (test 122 ML/MIN/1.73 code = 98318) CALC BUN/CREAT (test code = 26 RATIO [...] (test code = 2219) 41 U/L LIPID [id number] 00:00:00 Test Item Value Reference Range Interpretation Comments CHOLESTEROL (test code = 2210) 359 MG/DL TRIGLYCERIDES (test code = 2232) 1659 MG/DL HDL CHOLESTEROL (test code = 15 MG/DL 2220) CALC LDL CHOL (test code = 2237) NOTE MG/DL RISK RATIO LDL/HDL (test code = (NOTE) RATIO 2238) LIPID [id number] 00:00:00 Test Item Value Reference Range Interpretation Comments CHOLESTEROL (test code = 2210) 359 MG/DL TRIGLYCERIDES (test code = 2232) 1659 MG/DL HDL CHOLESTEROL (test code = 15 MG/DL 2220) CALC LDL CHOL (test code = 2237) NOTE MG/DL RISK RATIO LDL/HDL (test code = (NOTE) RATIO 2238) [id number] 00:00:00 Test Item Value Reference Range Interpretation Comments TSH (test code = 2821) 2.110 UIU/ML CBC W/AUTO [id number] 00:00:00 Test Item Value Reference Range Interpretation [...] code = 1015) 287 K/UL CBC W/AUTO [id number] 00:00:00 Test Item Value Reference Range Interpretation [...] code = 1015) 287 K/UL CBC W/AUTO [id number] 00:00:00 Test Item Value Reference Range Interpretation [...] (test code = 1015) 287 K/UL HEMOGLOBIN [id number] 00:00:00 Test Item Value Reference Range Interpretation Comments HEMOGLOBIN A1c (test code = 97844) 9.8 % HEMOGLOBIN [id number] 00:00:00 Test Item Value Reference Range Interpretation Comments HEMOGLOBIN A1c (test code = 13505) 9.8 % HEMOGLOBIN [id number] 00:00:00 Test Item Value Reference Range Interpretation Comments HEMOGLOBIN A1c (test code = 72532) 9.8 % [id number] 00:00:00 Test Item Value Reference Range Interpretation Comments TSH (test code = 2821) 2.110 UIU/ML [id number] 00:00:00 Test Item Value Reference Range Interpretation Comments TSH (test code = 2821) 2.110 UIU/ML [id number] 00:00:00 Test Item Value Reference Range Interpretation Comments TSH (test code = 2821) 2.110 UIU/ML [id number] 00:00:00 Test Item Value Reference Range Interpretation Comments TSH (test code = 2821) 2.110 UIU/ML COMPREHENSIVE METABOLIC [id number] 00:00:00 Test Item Value Reference Range Interpretation Comments GLUCOSE (test code = 2217) 138 MG/DL BUN (test code = 2208) 13 MG/DL CREATININE (test code = 2214) 0.50 MG/DL eGFR AMER. (test code 141 ML/MIN/1.73 = 18707) eGFR NON- AMER. (test 122 ML/MIN/1.73 code = 88730) CALC BUN/CREAT (test code = 26 RATIO [...] code = 2219) 41 U/L COMPREHENSIVE METABOLIC [id number] 00:00:00 Test Item Value Reference Range Interpretation Comments GLUCOSE (test code = 2217) 138 MG/DL BUN (test code = 2208) 13 MG/DL CREATININE (test code = 2214) 0.50 MG/DL eGFR AMER. (test code 141 ML/MIN/1.73 = 82743) eGFR NON- AMER. (test 122 ML/MIN/1.73 code = 98449) CALC BUN/CREAT (test code = 26 RATIO [...] (test code = 2219) 41 U/L LIPID [id number] 00:00:00 Test Item Value Reference Range Interpretation Comments CHOLESTEROL (test code = 2210) 359 MG/DL TRIGLYCERIDES (test code = 2232) 1659 MG/DL HDL CHOLESTEROL (test code = 15 MG/DL 2220) CALC LDL CHOL (test code = 2237) NOTE MG/DL RISK RATIO LDL/HDL (test code = (NOTE) RATIO 2238) LIPID [id number] 00:00:00 Test Item Value Reference Range Interpretation Comments CHOLESTEROL (test code = 2210) 359 MG/DL TRIGLYCERIDES (test code = 2232) 1659 MG/DL HDL CHOLESTEROL (test code = 15 MG/DL 2220) CALC LDL CHOL (test code = 2237) NOTE MG/DL RISK RATIO LDL/HDL (test code = (NOTE) RATIO 2238) CBC W/AUTO [id number] 00:00:00 Test Item Value Reference Range Interpretation [...] code = 1015) 287 K/UL CBC W/AUTO [id number] 00:00:00 Test Item Value Reference Range Interpretation [...] code = 1015) 287 K/UL CBC W/AUTO [id number] 00:00:00 Test Item Value Reference Range Interpretation [...] (test code = 1015) 287 K/UL HEMOGLOBIN [id number] 00:00:00 Test Item Value Reference Range Interpretation Comments HEMOGLOBIN A1c (test code = 96833) 9.8 % HEMOGLOBIN [id number] 00:00:00 Test Item Value Reference Range Interpretation Comments HEMOGLOBIN A1c (test code = 06714) 9.8 % HEMOGLOBIN [id number] 00:00:00 Test Item Value Reference Range Interpretation Comments HEMOGLOBIN A1c (test code = 33142) 9.8 % [id number] 00:00:00 Test Item Value Reference Range Interpretation Comments TSH (test code = 2821) 2.110 UIU/ML [id number] 00:00:00 Test Item Value Reference Range Interpretation Comments TSH (test code = 2821) 2.110 UIU/ML [id number] 00:00:00 Test Item Value Reference Range Interpretation Comments TSH (test code = 2821) 2.110 UIU/ML COMPREHENSIVE METABOLIC [id number] 00:00:00 Test Item Value Reference Range Interpretation Comments GLUCOSE (test code = 2217) 138 MG/DL BUN (test code = 2208) 13 MG/DL CREATININE (test code = 2214) 0.50 MG/DL eGFR AMER. (test code 141 ML/MIN/1.73 = 68322) eGFR NON- AMER. (test 122 ML/MIN/1.73 code = 23831) CALC BUN/CREAT (test code = 26 RATIO [...] code = 2219) 41 U/L COMPREHENSIVE METABOLIC [id number] 00:00:00 Test Item Value Reference Range Interpretation Comments GLUCOSE (test code = 2217) 138 MG/DL BUN (test code = 2208) 13 MG/DL CREATININE (test code = 2214) 0.50 MG/DL eGFR AMER. (test code 141 ML/MIN/1.73 = 77329) eGFR NON- AMER. (test 122 ML/MIN/1.73 code = 10240) CALC BUN/CREAT (test code = 26 RATIO [...] (test code = 2219) 41 U/L LIPID [id number] 00:00:00 Test Item Value Reference Range Interpretation Comments CHOLESTEROL (test code = 2210) 359 MG/DL TRIGLYCERIDES (test code = 2232) 1659 MG/DL HDL CHOLESTEROL (test code = 15 MG/DL 2220) CALC LDL CHOL (test code = 2237) NOTE MG/DL RISK RATIO LDL/HDL (test code = (NOTE) RATIO 2238) LIPID [id number] 00:00:00 Test Item Value Reference Range Interpretation Comments CHOLESTEROL (test code = 2210) 359 MG/DL TRIGLYCERIDES (test code = 2232) 1659 MG/DL HDL CHOLESTEROL (test code = 15 MG/DL 2220) CALC LDL CHOL (test code = 2237) NOTE MG/DL RISK RATIO LDL/HDL (test code = (NOTE) RATIO 2238) CBC W/AUTO [id number] 00:00:00 Test Item Value Reference Range Interpretation [...] code = 1015) 287 K/UL CBC W/AUTO [id number] 00:00:00 Test Item Value Reference Range Interpretation [...] code = 1015) 287 K/UL CBC W/AUTO [id number] 00:00:00 Test Item Value Reference Range Interpretation [...] (test code = 1015) 287 K/UL HEMOGLOBIN [id number] 00:00:00 Test Item Value Reference Range Interpretation Comments HEMOGLOBIN A1c (test code = 89137) 9.8 % HEMOGLOBIN [id number] 00:00:00 Test Item Value Reference Range Interpretation Comments HEMOGLOBIN A1c (test code = 42375) 9.8 % HEMOGLOBIN [id number] 00:00:00 Test Item Value Reference Range Interpretation Comments HEMOGLOBIN A1c (test code = 08446) 9.8 % [id number] 00:00:00 Test Item Value Reference Range Interpretation Comments TSH (test code = 2821) 2.110 UIU/ML [id number] 00:00:00 Test Item Value Reference Range Interpretation Comments TSH (test code = 2821) 2.110 UIU/ML [id number] 00:00:00 Test Item Value Reference Range Interpretation Comments TSH (test code = 2821) 2.110 UIU/ML LIPID [id number] 00:00:00 Test Item Value Reference Range Interpretation Comments CHOLESTEROL (test code = 2210) 195 MG/DL TRIGLYCERIDES (test code = 2232) 505 MG/DL HDL CHOLESTEROL (test code = 35 MG/DL 2220) CALC LDL CHOL (test code = 2237) NOTE MG/DL RISK RATIO LDL/HDL (test code = (NOTE) RATIO 2238) LIPID [id number] 00:00:00 Test Item Value Reference Range Interpretation [...] (test code = 2821) 2.000 UIU/ML LIPID [id number] 00:00:00 Test Item Value Reference Range Interpretation Comments CHOLESTEROL (test code = 2210) 195 MG/DL TRIGLYCERIDES (test code = 2232) 505 MG/DL HDL CHOLESTEROL (test code = 35 MG/DL 2220) CALC LDL CHOL (test code = 2237) NOTE MG/DL RISK RATIO LDL/HDL (test code = (NOTE) RATIO 2238) LIPID [id number] 00:00:00 Test Item Value Reference Range Interpretation [...] (test code = 2821) 2.000 UIU/ML LIPID [id number] 00:00:00 Test Item Value Reference Range Interpretation Comments CHOLESTEROL (test code = 2210) 195 MG/DL TRIGLYCERIDES (test code = 2232) 505 MG/DL HDL CHOLESTEROL (test code = 35 MG/DL 2220) CALC LDL CHOL (test code = 2237) NOTE MG/DL RISK RATIO LDL/HDL (test code = (NOTE) RATIO 2238) LIPID [id number] 00:00:00 Test Item Value Reference Range Interpretation [...] (test code = 2821) 2.000 UIU/ML LIPID [id number] 00:00:00 Test Item Value Reference Range Interpretation Comments CHOLESTEROL (test code = 2210) 195 MG/DL TRIGLYCERIDES (test code = 2232) 505 MG/DL HDL CHOLESTEROL (test code = 35 MG/DL 2220) CALC LDL CHOL (test code = 2237) NOTE MG/DL RISK RATIO LDL/HDL (test code = (NOTE) RATIO 2238) LIPID [id number] 00:00:00 Test Item Value Reference Range Interpretation [...] (test code = 2821) 2.000 UIU/ML LIPID [id number] 00:00:00 Test Item Value Reference Range Interpretation Comments CHOLESTEROL (test code = 2210) 195 MG/DL TRIGLYCERIDES (test code = 2232) 505 MG/DL HDL CHOLESTEROL (test code = 35 MG/DL 2220) CALC LDL CHOL (test code = 2237) NOTE MG/DL RISK RATIO LDL/HDL (test code = (NOTE) RATIO 2238) LIPID [id number] 00:00:00 Test Item Value Reference Range Interpretation [...] (test code = 2821) 2.000 UIU/ML LIPID [id number] 00:00:00 Test Item Value Reference Range Interpretation Comments CHOLESTEROL (test code = 2210) 195 MG/DL TRIGLYCERIDES (test code = 2232) 505 MG/DL HDL CHOLESTEROL (test code = 35 MG/DL 2220) CALC LDL CHOL (test code = 2237) NOTE MG/DL RISK RATIO LDL/HDL (test code = (NOTE) RATIO 2238) LIPID [id number] 00:00:00 Test Item Value Reference Range Interpretation [...] (test code = 2821) 2.000 UIU/ML LIPID [id number] 00:00:00 Test Item Value Reference Range Interpretation Comments CHOLESTEROL (test code = 2210) 195 MG/DL TRIGLYCERIDES (test code = 2232) 505 MG/DL HDL CHOLESTEROL (test code = 35 MG/DL 2220) CALC LDL CHOL (test code = 2237) NOTE MG/DL RISK RATIO LDL/HDL (test code = (NOTE) RATIO 2238) LIPID [id number] 00:00:00 Test Item Value Reference Range Interpretation [...] (test code = 2821) 2.000 UIU/ML LIPID [id number] 00:00:00 Test Item Value Reference Range Interpretation [...] (test code = 2821) 2.000 UIU/ML LIPID [id number] 00:00:00 Test Item Value Reference Range Interpretation Comments CHOLESTEROL (test code = 2210) 195 MG/DL TRIGLYCERIDES (test code = 2232) 505 MG/DL HDL CHOLESTEROL (test code = 35 MG/DL 2220) CALC LDL CHOL (test code = 2237) NOTE MG/DL RISK RATIO LDL/HDL (test code = (NOTE) RATIO 2238) LIPID [id number] 00:00:00 Test Item Value Reference Range Interpretation [...] (test code = 2821) 2.000 UIU/ML LIPID [id number] 00:00:00 Test Item Value Reference Range Interpretation Comments CHOLESTEROL (test code = 2210) 195 MG/DL TRIGLYCERIDES (test code = 2232) 505 MG/DL HDL CHOLESTEROL (test code = 35 MG/DL 2220) CALC LDL CHOL (test code = 2237) NOTE MG/DL RISK RATIO LDL/HDL (test code = (NOTE) RATIO 2238) LIPID [id number] 00:00:00 Test Item Value Reference Range Interpretation [...] (test code = 2821) 2.000 UIU/ML LIPID [id number] 00:00:00 Test Item Value Reference Range Interpretation Comments CHOLESTEROL (test code = 2210) 195 MG/DL TRIGLYCERIDES (test code = 2232) 505 MG/DL HDL CHOLESTEROL (test code = 35 MG/DL 2220) CALC LDL CHOL (test code = 2237) NOTE MG/DL RISK RATIO LDL/HDL (test code = (NOTE) RATIO 2238) LIPID [id number] 00:00:00 Test Item Value Reference Range Interpretation [...] code = 2821) 2.000 UIU/ML COMPREHENSIVE METABOLIC [id number] 00:00:00 Test Item Value Reference Range Interpretation Comments GLUCOSE (test code = 2217) 154 MG/DL BUN (test code = 2208) 12 MG/DL CREATININE (test code = 2214) 0.54 MG/DL eGFR AMER. (test code 139 ML/MIN/1.73 = 31408) eGFR NON- AMER. (test 120 ML/MIN/1.73 code = 84900) CALC BUN/CREAT (test code = 22 RATIO [...] code = 2219) 22 U/L COMPREHENSIVE METABOLIC [id number] 00:00:00 Test Item Value Reference Range Interpretation Comments GLUCOSE (test code = 2217) 154 MG/DL BUN (test code = 2208) 12 MG/DL CREATININE (test code = 2214) 0.54 MG/DL eGFR AMER. (test code 139 ML/MIN/1.73 = 07569) eGFR NON- AMER. (test 120 ML/MIN/1.73 code = 63057) CALC BUN/CREAT (test code = 22 RATIO [...] (test code = 2219) 22 U/L LIPID [id number] 00:00:00 Test Item Value Reference Range Interpretation Comments CHOLESTEROL (test code = 2210) 243 MG/DL TRIGLYCERIDES (test code = 2232) 1140 MG/DL HDL CHOLESTEROL (test code = 31 MG/DL 2220) CALC LDL CHOL (test code = 2237) NOTE MG/DL RISK RATIO LDL/HDL (test code = (NOTE) RATIO 2238) LIPID [id number] 00:00:00 Test Item Value Reference Range Interpretation Comments CHOLESTEROL (test code = 2210) 243 MG/DL TRIGLYCERIDES (test code = 2232) 1140 MG/DL HDL CHOLESTEROL (test code = 31 MG/DL 2220) CALC LDL CHOL (test code = 2237) NOTE MG/DL RISK RATIO LDL/HDL (test code = (NOTE) RATIO 2238) CBC W/AUTO [id number] 00:00:00 Test Item Value Reference Range Interpretation [...] code = 1015) 229 K/UL CBC W/AUTO [id number] 00:00:00 Test Item Value Reference Range Interpretation [...] code = 1015) 229 K/UL CBC W/AUTO [id number] 00:00:00 Test Item Value Reference Range Interpretation [...] (test code = 1015) 229 K/UL HEMOGLOBIN [id number] 00:00:00 Test Item Value Reference Range Interpretation Comments HEMOGLOBIN A1c (test code = 67814) 7.7 % HEMOGLOBIN [id number] 00:00:00 Test Item Value Reference Range Interpretation Comments HEMOGLOBIN A1c (test code = 27322) 7.7 % HEMOGLOBIN [id number] 00:00:00 Test Item Value Reference Range Interpretation Comments HEMOGLOBIN A1c (test code = 41518) 7.7 % COMPREHENSIVE METABOLIC [id number] 00:00:00 Test Item Value Reference Range Interpretation Comments GLUCOSE (test code = 2217) 154 MG/DL BUN (test code = 2208) 12 MG/DL CREATININE (test code = 2214) 0.54 MG/DL eGFR AMER. (test code 139 ML/MIN/1.73 = 86329) eGFR NON- AMER. (test 120 ML/MIN/1.73 code = 87057) CALC BUN/CREAT (test code = 22 RATIO [...] code = 2219) 22 U/L COMPREHENSIVE METABOLIC [id number] 00:00:00 Test Item Value Reference Range Interpretation Comments GLUCOSE (test code = 2217) 154 MG/DL BUN (test code = 2208) 12 MG/DL CREATININE (test code = 2214) 0.54 MG/DL eGFR AMER. (test code 139 ML/MIN/1.73 = 24741) eGFR NON- AMER. (test 120 ML/MIN/1.73 code = 47563) CALC BUN/CREAT (test code = 22 RATIO [...] (test code = 2219) 22 U/L LIPID [id number] 00:00:00 Test Item Value Reference Range Interpretation Comments CHOLESTEROL (test code = 2210) 243 MG/DL TRIGLYCERIDES (test code = 2232) 1140 MG/DL HDL CHOLESTEROL (test code = 31 MG/DL 2220) CALC LDL CHOL (test code = 2237) NOTE MG/DL RISK RATIO LDL/HDL (test code = (NOTE) RATIO 2238) LIPID [id number] 00:00:00 Test Item Value Reference Range Interpretation Comments CHOLESTEROL (test code = 2210) 243 MG/DL TRIGLYCERIDES (test code = 2232) 1140 MG/DL HDL CHOLESTEROL (test code = 31 MG/DL 2220) CALC LDL CHOL (test code = 2237) NOTE MG/DL RISK RATIO LDL/HDL (test code = (NOTE) RATIO 2238) CBC W/AUTO [id number] 00:00:00 Test Item Value Reference Range Interpretation [...] code = 1015) 229 K/UL CBC W/AUTO [id number] 00:00:00 Test Item Value Reference Range Interpretation [...] code = 1015) 229 K/UL CBC W/AUTO [id number] 00:00:00 Test Item Value Reference Range Interpretation [...] (test code = 1015) 229 K/UL HEMOGLOBIN [id number] 00:00:00 Test Item Value Reference Range Interpretation Comments HEMOGLOBIN A1c (test code = 07541) 7.7 % HEMOGLOBIN [id number] 00:00:00 Test Item Value Reference Range Interpretation Comments HEMOGLOBIN A1c (test code = 81123) 7.7 % HEMOGLOBIN [id number] 00:00:00 Test Item Value Reference Range Interpretation Comments HEMOGLOBIN A1c (test code = 02782) 7.7 % COMPREHENSIVE METABOLIC [id number] 00:00:00 Test Item Value Reference Range Interpretation Comments GLUCOSE (test code = 2217) 154 MG/DL BUN (test code = 2208) 12 MG/DL CREATININE (test code = 2214) 0.54 MG/DL eGFR AMER. (test code 139 ML/MIN/1.73 = 87949) eGFR NON- AMER. (test 120 ML/MIN/1.73 code = 87706) CALC BUN/CREAT (test code = 22 RATIO [...] code = 2219) 22 U/L COMPREHENSIVE METABOLIC [id number] 00:00:00 Test Item Value Reference Range Interpretation Comments GLUCOSE (test code = 2217) 154 MG/DL BUN (test code = 2208) 12 MG/DL CREATININE (test code = 2214) 0.54 MG/DL eGFR AMER. (test code 139 ML/MIN/1.73 = 97134) eGFR NON- AMER. (test 120 ML/MIN/1.73 code = 34674) CALC BUN/CREAT (test code = 22 RATIO [...] (test code = 2219) 22 U/L LIPID [id number] 00:00:00 Test Item Value Reference Range Interpretation Comments CHOLESTEROL (test code = 2210) 243 MG/DL TRIGLYCERIDES (test code = 2232) 1140 MG/DL HDL CHOLESTEROL (test code = 31 MG/DL 2220) CALC LDL CHOL (test code = 2237) NOTE MG/DL RISK RATIO LDL/HDL (test code = (NOTE) RATIO 2238) LIPID [id number] 00:00:00 Test Item Value Reference Range Interpretation Comments CHOLESTEROL (test code = 2210) 243 MG/DL TRIGLYCERIDES (test code = 2232) 1140 MG/DL HDL CHOLESTEROL (test code = 31 MG/DL 2220) CALC LDL CHOL (test code = 2237) NOTE MG/DL RISK RATIO LDL/HDL (test code = (NOTE) RATIO 2238) CBC W/AUTO [id number] 00:00:00 Test Item Value Reference Range Interpretation [...] code = 1015) 229 K/UL CBC W/AUTO [id number] 00:00:00 Test Item Value Reference Range Interpretation [...] code = 1015) 229 K/UL CBC W/AUTO [id number] 00:00:00 Test Item Value Reference Range Interpretation [...] (test code = 1015) 229 K/UL HEMOGLOBIN [id number] 00:00:00 Test Item Value Reference Range Interpretation Comments HEMOGLOBIN A1c (test code = 24240) 7.7 % HEMOGLOBIN [id number] 00:00:00 Test Item Value Reference Range Interpretation Comments HEMOGLOBIN A1c (test code = 12762) 7.7 % HEMOGLOBIN [id number] 00:00:00 Test Item Value Reference Range Interpretation Comments HEMOGLOBIN A1c (test code = 26248) 7.7 % COMPREHENSIVE METABOLIC [id number] 00:00:00 Test Item Value Reference Range Interpretation Comments GLUCOSE (test code = 2217) 154 MG/DL BUN (test code = 2208) 12 MG/DL CREATININE (test code = 2214) 0.54 MG/DL eGFR AMER. (test code 139 ML/MIN/1.73 = 54173) eGFR NON- AMER. (test 120 ML/MIN/1.73 code = 59555) CALC BUN/CREAT (test code = 22 RATIO [...] code = 2219) 22 U/L COMPREHENSIVE METABOLIC [id number] 00:00:00 Test Item Value Reference Range Interpretation Comments GLUCOSE (test code = 2217) 154 MG/DL BUN (test code = 2208) 12 MG/DL CREATININE (test code = 2214) 0.54 MG/DL eGFR AMER. (test code 139 ML/MIN/1.73 = 39339) eGFR NON- AMER. (test 120 ML/MIN/1.73 code = 35686) CALC BUN/CREAT (test code = 22 RATIO [...] (test code = 2219) 22 U/L LIPID [id number] 00:00:00 Test Item Value Reference Range Interpretation Comments CHOLESTEROL (test code = 2210) 243 MG/DL TRIGLYCERIDES (test code = 2232) 1140 MG/DL HDL CHOLESTEROL (test code = 31 MG/DL 2220) CALC LDL CHOL (test code = 2237) NOTE MG/DL RISK RATIO LDL/HDL (test code = (NOTE) RATIO 2238) LIPID [id number] 00:00:00 Test Item Value Reference Range Interpretation Comments CHOLESTEROL (test code = 2210) 243 MG/DL TRIGLYCERIDES (test code = 2232) 1140 MG/DL HDL CHOLESTEROL (test code = 31 MG/DL 2220) CALC LDL CHOL (test code = 2237) NOTE MG/DL RISK RATIO LDL/HDL (test code = (NOTE) RATIO 2238) CBC W/AUTO [id number] 00:00:00 Test Item Value Reference Range Interpretation [...] code = 1015) 229 K/UL CBC W/AUTO [id number] 00:00:00 Test Item Value Reference Range Interpretation [...] code = 1015) 229 K/UL CBC W/AUTO [id number] 00:00:00 Test Item Value Reference Range Interpretation [...] (test code = 1015) 229 K/UL HEMOGLOBIN [id number] 00:00:00 Test Item Value Reference Range Interpretation Comments HEMOGLOBIN A1c (test code = 08980) 7.7 % HEMOGLOBIN [id number] 00:00:00 Test Item Value Reference Range Interpretation Comments HEMOGLOBIN A1c (test code = 27598) 7.7 % HEMOGLOBIN [id number] 00:00:00 Test Item Value Reference Range Interpretation Comments HEMOGLOBIN A1c (test code = 95558) 7.7 % COMPREHENSIVE METABOLIC [id number] 00:00:00 Test Item Value Reference Range Interpretation Comments GLUCOSE (test code = 2217) 154 MG/DL BUN (test code = 2208) 12 MG/DL CREATININE (test code = 2214) 0.54 MG/DL eGFR AMER. (test code 139 ML/MIN/1.73 = 64773) eGFR NON- AMER. (test 120 ML/MIN/1.73 code = 25336) CALC BUN/CREAT (test code = 22 RATIO [...] code = 2219) 22 U/L COMPREHENSIVE METABOLIC [id number] 00:00:00 Test Item Value Reference Range Interpretation Comments GLUCOSE (test code = 2217) 154 MG/DL BUN (test code = 2208) 12 MG/DL CREATININE (test code = 2214) 0.54 MG/DL eGFR AMER. (test code 139 ML/MIN/1.73 = 81109) eGFR NON- AMER. (test 120 ML/MIN/1.73 code = 87864) CALC BUN/CREAT (test code = 22 RATIO [...] (test code = 2219) 22 U/L LIPID [id number] 00:00:00 Test Item Value Reference Range Interpretation Comments CHOLESTEROL (test code = 2210) 243 MG/DL TRIGLYCERIDES (test code = 2232) 1140 MG/DL HDL CHOLESTEROL (test code = 31 MG/DL 2220) CALC LDL CHOL (test code = 2237) NOTE MG/DL RISK RATIO LDL/HDL (test code = (NOTE) RATIO 2238) LIPID [id number] 00:00:00 Test Item Value Reference Range Interpretation Comments CHOLESTEROL (test code = 2210) 243 MG/DL TRIGLYCERIDES (test code = 2232) 1140 MG/DL HDL CHOLESTEROL (test code = 31 MG/DL 2220) CALC LDL CHOL (test code = 2237) NOTE MG/DL RISK RATIO LDL/HDL (test code = (NOTE) RATIO 2238) CBC W/AUTO [id number] 00:00:00 Test Item Value Reference Range Interpretation [...] code = 1015) 229 K/UL CBC W/AUTO [id number] 00:00:00 Test Item Value Reference Range Interpretation [...] code = 1015) 229 K/UL CBC W/AUTO [id number] 00:00:00 Test Item Value Reference Range Interpretation [...] (test code = 1015) 229 K/UL HEMOGLOBIN [id number] 00:00:00 Test Item Value Reference Range Interpretation Comments HEMOGLOBIN A1c (test code = 85402) 7.7 % HEMOGLOBIN [id number] 00:00:00 Test Item Value Reference Range Interpretation Comments HEMOGLOBIN A1c (test code = 25132) 7.7 % HEMOGLOBIN [id number] 00:00:00 Test Item Value Reference Range Interpretation Comments HEMOGLOBIN A1c (test code = 72626) 7.7 % COMPREHENSIVE METABOLIC [id number] 00:00:00 Test Item Value Reference Range Interpretation Comments GLUCOSE (test code = 2217) 154 MG/DL BUN (test code = 2208) 12 MG/DL CREATININE (test code = 2214) 0.54 MG/DL eGFR AMER. (test code 139 ML/MIN/1.73 = 38439) eGFR NON- AMER. (test 120 ML/MIN/1.73 code = 88048) CALC BUN/CREAT (test code = 22 RATIO [...] code = 2219) 22 U/L COMPREHENSIVE METABOLIC [id number] 00:00:00 Test Item Value Reference Range Interpretation Comments GLUCOSE (test code = 2217) 154 MG/DL BUN (test code = 2208) 12 MG/DL CREATININE (test code = 2214) 0.54 MG/DL eGFR AMER. (test code 139 ML/MIN/1.73 = 89762) eGFR NON- AMER. (test 120 ML/MIN/1.73 code = 54477) CALC BUN/CREAT (test code = 22 RATIO [...] (test code = 2219) 22 U/L LIPID [id number] 00:00:00 Test Item Value Reference Range Interpretation Comments CHOLESTEROL (test code = 2210) 243 MG/DL TRIGLYCERIDES (test code = 2232) 1140 MG/DL HDL CHOLESTEROL (test code = 31 MG/DL 2220) CALC LDL CHOL (test code = 2237) NOTE MG/DL RISK RATIO LDL/HDL (test code = (NOTE) RATIO 2238) LIPID [id number] 00:00:00 Test Item Value Reference Range Interpretation Comments CHOLESTEROL (test code = 2210) 243 MG/DL TRIGLYCERIDES (test code = 2232) 1140 MG/DL HDL CHOLESTEROL (test code = 31 MG/DL 2220) CALC LDL CHOL (test code = 2237) NOTE MG/DL RISK RATIO LDL/HDL (test code = (NOTE) RATIO 2238) CBC W/AUTO [id number] 00:00:00 Test Item Value Reference Range Interpretation [...] code = 1015) 229 K/UL CBC W/AUTO [id number] 00:00:00 Test Item Value Reference Range Interpretation [...] code = 1015) 229 K/UL CBC W/AUTO [id number] 00:00:00 Test Item Value Reference Range Interpretation [...] (test code = 1015) 229 K/UL HEMOGLOBIN [id number] 00:00:00 Test Item Value Reference Range Interpretation Comments HEMOGLOBIN A1c (test code = 87864) 7.7 % HEMOGLOBIN [id number] 00:00:00 Test Item Value Reference Range Interpretation Comments HEMOGLOBIN A1c (test code = 44377) 7.7 % HEMOGLOBIN [id number] 00:00:00 Test Item Value Reference Range Interpretation Comments HEMOGLOBIN A1c (test code = 10008) 7.7 % COMPREHENSIVE METABOLIC [id number] 00:00:00 Test Item Value Reference Range Interpretation Comments GLUCOSE (test code = 2217) 154 MG/DL BUN (test code = 2208) 12 MG/DL CREATININE (test code = 2214) 0.54 MG/DL eGFR AMER. (test code 139 ML/MIN/1.73 = 06522) eGFR NON- AMER. (test 120 ML/MIN/1.73 code = 75045) CALC BUN/CREAT (test code = 22 RATIO [...] code = 2219) 22 U/L COMPREHENSIVE METABOLIC [id number] 00:00:00 Test Item Value Reference Range Interpretation Comments GLUCOSE (test code = 2217) 154 MG/DL BUN (test code = 2208) 12 MG/DL CREATININE (test code = 2214) 0.54 MG/DL eGFR AMER. (test code 139 ML/MIN/1.73 = 03986) eGFR NON- AMER. (test 120 ML/MIN/1.73 code = 11746) CALC BUN/CREAT (test code = 22 RATIO [...] (test code = 2219) 22 U/L LIPID [id number] 00:00:00 Test Item Value Reference Range Interpretation Comments CHOLESTEROL (test code = 2210) 243 MG/DL TRIGLYCERIDES (test code = 2232) 1140 MG/DL HDL CHOLESTEROL (test code = 31 MG/DL 2220) CALC LDL CHOL (test code = 2237) NOTE MG/DL RISK RATIO LDL/HDL (test code = (NOTE) RATIO 2238) COMPREHENSIVE METABOLIC [id number] 00:00:00 Test Item Value Reference Range Interpretation Comments GLUCOSE (test code = 2217) 154 MG/DL BUN (test code = 2208) 12 MG/DL CREATININE (test code = 2214) 0.54 MG/DL eGFR AMER. (test code 139 ML/MIN/1.73 = 17646) eGFR NON- AMER. (test 120 ML/MIN/1.73 code = 82381) CALC BUN/CREAT (test code = 22 RATIO [...] (test code = 2219) 22 U/L LIPID [id number] 00:00:00 Test Item Value Reference Range Interpretation Comments CHOLESTEROL (test code = 2210) 243 MG/DL TRIGLYCERIDES (test code = 2232) 1140 MG/DL HDL CHOLESTEROL (test code = 31 MG/DL 2219) CALC LDL CHOL (test code = 2237) NOTE MG/DL RISK RATIO LDL/HDL (test code = (NOTE) RATIO 2238) CBC W/AUTO [id number] 00:00:00 Test Item Value Reference Range Interpretation [...] code = 1015) 229 K/UL CBC W/AUTO [id number] 00:00:00 Test Item Value Reference Range Interpretation [...] code = 1015) 229 K/UL CBC W/AUTO [id number] 00:00:00 Test Item Value Reference Range Interpretation [...] (test code = 1015) 229 K/UL HEMOGLOBIN [id number] 00:00:00 Test Item Value Reference Range Interpretation Comments HEMOGLOBIN A1c (test code = 36235) 7.7 % HEMOGLOBIN [id number] 00:00:00 Test Item Value Reference Range Interpretation Comments HEMOGLOBIN A1c (test code = 58058) 7.7 % HEMOGLOBIN [id number] 00:00:00 Test Item Value Reference Range Interpretation Comments HEMOGLOBIN A1c (test code = 17394) 7.7 % LIPID [id number] 00:00:00 Test Item Value Reference Range Interpretation Comments CHOLESTEROL (test code = 2210) 243 MG/DL TRIGLYCERIDES (test code = 2232) 1140 MG/DL HDL CHOLESTEROL (test code = 31 MG/DL 2220) CALC LDL CHOL (test code = 2237) NOTE MG/DL RISK RATIO LDL/HDL (test code = (NOTE) RATIO 2238) CBC W/AUTO [id number] 00:00:00 Test Item Value Reference Range Interpretation [...] code = 1015) 229 K/UL CBC W/AUTO [id number] 00:00:00 Test Item Value Reference Range Interpretation [...] code = 1015) 229 K/UL COMPREHENSIVE METABOLIC [id number] 00:00:00 Test Item Value Reference Range Interpretation Comments GLUCOSE (test code = 2217) 154 MG/DL BUN (test code = 2208) 12 MG/DL CREATININE (test code = 2214) 0.54 MG/DL eGFR AMER. (test code 139 ML/MIN/1.73 = 46578) eGFR NON- AMER. (test 120 ML/MIN/1.73 code = 96146) CALC BUN/CREAT (test code = 22 RATIO [...] code = 2219) 22 U/L COMPREHENSIVE METABOLIC [id number] 00:00:00 Test Item Value Reference Range Interpretation Comments GLUCOSE (test code = 2217) 154 MG/DL BUN (test code = 2208) 12 MG/DL CREATININE (test code = 2214) 0.54 MG/DL eGFR AMER. (test code 139 ML/MIN/1.73 = 80324) eGFR NON- AMER. (test 120 ML/MIN/1.73 code = 50469) CALC BUN/CREAT (test code = 22 RATIO [...] (test code = 2219) 22 U/L HEMOGLOBIN [id number] 00:00:00 Test Item Value Reference Range Interpretation Comments HEMOGLOBIN A1c (test code = 09076) 7.7 % LIPID [id number] 00:00:00 Test Item Value Reference Range Interpretation Comments CHOLESTEROL (test code = 2210) 243 MG/DL TRIGLYCERIDES (test code = 2232) 1140 MG/DL HDL CHOLESTEROL (test code = 31 MG/DL 2220) CALC LDL CHOL (test code = 2237) NOTE MG/DL RISK RATIO LDL/HDL (test code = (NOTE) RATIO 2238) LIPID [id number] 00:00:00 Test Item Value Reference Range Interpretation Comments CHOLESTEROL (test code = 2210) 243 MG/DL TRIGLYCERIDES (test code = 2232) 1140 MG/DL HDL CHOLESTEROL (test code = 31 MG/DL 2220) CALC LDL CHOL (test code = 2237) NOTE MG/DL RISK RATIO LDL/HDL (test code = (NOTE) RATIO 2238) HEMOGLOBIN [id number] 00:00:00 Test Item Value Reference Range Interpretation Comments HEMOGLOBIN A1c (test code = 62744) 7.7 % CBC W/AUTO [id number] 00:00:00 Test Item Value Reference Range Interpretation [...] code = 1015) 229 K/UL CBC W/AUTO [id number] 00:00:00 Test Item Value Reference Range Interpretation [...] code = 1015) 229 K/UL CBC W/AUTO [id number] 00:00:00 Test Item Value Reference Range Interpretation [...] (test code = 1015) 229 K/UL HEMOGLOBIN [id number] 00:00:00 Test Item Value Reference Range Interpretation Comments HEMOGLOBIN A1c (test code = 13297) 7.7 % HEMOGLOBIN [id number] 00:00:00 Test Item Value Reference Range Interpretation Comments HEMOGLOBIN A1c (test code = 31266) 7.7 % HEMOGLOBIN [id number] 00:00:00 Test Item Value Reference Range Interpretation Comments HEMOGLOBIN A1c (test code = 83130) 7.7 % COMPREHENSIVE METABOLIC [id number] 00:00:00 Test Item Value Reference Range Interpretation Comments GLUCOSE (test code = 2217) 154 MG/DL BUN (test code = 2208) 12 MG/DL CREATININE (test code = 2214) 0.54 MG/DL eGFR AMER. (test code 139 ML/MIN/1.73 = 67624) eGFR NON- AMER. (test 120 ML/MIN/1.73 code = 17933) CALC BUN/CREAT (test code = 22 RATIO [...] code = 2219) 22 U/L COMPREHENSIVE METABOLIC [id number] 00:00:00 Test Item Value Reference Range Interpretation Comments GLUCOSE (test code = 2217) 154 MG/DL BUN (test code = 2208) 12 MG/DL CREATININE (test code = 2214) 0.54 MG/DL eGFR AMER. (test code 139 ML/MIN/1.73 = 92135) eGFR NON- AMER. (test 120 ML/MIN/1.73 code = 75441) CALC BUN/CREAT (test code = 22 RATIO [...] (test code = 2219) 22 U/L LIPID [id number] 00:00:00 Test Item Value Reference Range Interpretation Comments CHOLESTEROL (test code = 2210) 243 MG/DL TRIGLYCERIDES (test code = 2232) 1140 MG/DL HDL CHOLESTEROL (test code = 31 MG/DL 2220) CALC LDL CHOL (test code = 2237) NOTE MG/DL RISK RATIO LDL/HDL (test code = (NOTE) RATIO 2238) LIPID [id number] 00:00:00 Test Item Value Reference Range Interpretation Comments CHOLESTEROL (test code = 2210) 243 MG/DL TRIGLYCERIDES (test code = 2232) 1140 MG/DL HDL CHOLESTEROL (test code = 31 MG/DL 2220) CALC LDL CHOL (test code = 2237) NOTE MG/DL RISK RATIO LDL/HDL (test code = (NOTE) RATIO 2238) CBC W/AUTO [id number] 00:00:00 Test Item Value Reference Range Interpretation [...] code = 1015) 229 K/UL CBC W/AUTO [id number] 00:00:00 Test Item Value Reference Range Interpretation [...] code = 1015) 229 K/UL CBC W/AUTO [id number] 00:00:00 Test Item Value Reference Range Interpretation [...] (test code = 1015) 229 K/UL HEMOGLOBIN [id number] 00:00:00 Test Item Value Reference Range Interpretation Comments HEMOGLOBIN A1c (test code = 46446) 7.7 % HEMOGLOBIN [id number] 00:00:00 Test Item Value Reference Range Interpretation Comments HEMOGLOBIN A1c (test code = 55289) 7.7 % HEMOGLOBIN [id number] 00:00:00 Test Item Value Reference Range Interpretation Comments HEMOGLOBIN A1c (test code = 36000) 7.7 % COMPREHENSIVE METABOLIC [id number] 00:00:00 Test Item Value Reference Range Interpretation Comments GLUCOSE (test code = 2217) 154 MG/DL BUN (test code = 2208) 12 MG/DL CREATININE (test code = 2214) 0.54 MG/DL eGFR AMER. (test code 139 ML/MIN/1.73 = 67727) eGFR NON- AMER. (test 120 ML/MIN/1.73 code = 58940) CALC BUN/CREAT (test code = 22 RATIO [...] code = 2219) 22 U/L COMPREHENSIVE METABOLIC [id number] 00:00:00 Test Item Value Reference Range Interpretation Comments GLUCOSE (test code = 2217) 154 MG/DL BUN (test code = 2208) 12 MG/DL CREATININE (test code = 2214) 0.54 MG/DL eGFR AMER. (test code 139 ML/MIN/1.73 = 28147) eGFR NON- AMER. (test 120 ML/MIN/1.73 code = 56039) CALC BUN/CREAT (test code = 22 RATIO [...] (test code = 2219) 22 U/L LIPID [id number] 00:00:00 Test Item Value Reference Range Interpretation Comments CHOLESTEROL (test code = 2210) 243 MG/DL TRIGLYCERIDES (test code = 2232) 1140 MG/DL HDL CHOLESTEROL (test code = 31 MG/DL 2220) CALC LDL CHOL (test code = 2237) NOTE MG/DL RISK RATIO LDL/HDL (test code = (NOTE) RATIO 2238) LIPID [id number] 00:00:00 Test Item Value Reference Range Interpretation Comments CHOLESTEROL (test code = 2210) 243 MG/DL TRIGLYCERIDES (test code = 2232) 1140 MG/DL HDL CHOLESTEROL (test code = 31 MG/DL 2220) CALC LDL CHOL (test code = 2237) NOTE MG/DL RISK RATIO LDL/HDL (test code = (NOTE) RATIO 2238) CBC W/AUTO [id number] 00:00:00 Test Item Value Reference Range Interpretation [...] code = 1015) 229 K/UL CBC W/AUTO [id number] 00:00:00 Test Item Value Reference Range Interpretation [...] code = 1015) 229 K/UL CBC W/AUTO [id number] 00:00:00 Test Item Value Reference Range Interpretation [...] (test code = 1015) 229 K/UL HEMOGLOBIN [id number] 00:00:00 Test Item Value Reference Range Interpretation Comments HEMOGLOBIN A1c (test code = 13414) 7.7 % HEMOGLOBIN [id number] 00:00:00 Test Item Value Reference Range Interpretation Comments HEMOGLOBIN A1c (test code = 43025) 7.7 % HEMOGLOBIN [id number] 00:00:00 Test Item Value Reference Range Interpretation Comments HEMOGLOBIN A1c (test code = 43342) 7.7 % [id number] 00:00:00 Test Item Value Reference Range Interpretation Comments MAGNESIUM (test code = 2226) 1.4 MG/DL [id number] 00:00:00 Test Item Value Reference Range Interpretation Comments MAGNESIUM (test code = 2226) 1.4 MG/DL [id number] 00:00:00 Test Item Value Reference Range Interpretation Comments MAGNESIUM (test code = 2226) 1.4 MG/DL COMPREHENSIVE METABOLIC [id number] 00:00:00 Test Item Value Reference Range Interpretation Comments GLUCOSE (test code = 2217) 234 MG/DL BUN (test code = 2208) 17 MG/DL CREATININE (test code = 2214) 0.54 MG/DL eGFR AMER. (test code 139 ML/MIN/1.73 = 91163) eGFR NON- AMER. (test 120 ML/MIN/1.73 code = 83395) CALC BUN/CREAT (test code = 31 RATIO [...] code = 2219) 22 U/L COMPREHENSIVE METABOLIC [id number] 00:00:00 Test Item Value Reference Range Interpretation Comments GLUCOSE (test code = 2217) 234 MG/DL BUN (test code = 2208) 17 MG/DL CREATININE (test code = 2214) 0.54 MG/DL eGFR AMER. (test code 139 ML/MIN/1.73 = 29733) eGFR NON- AMER. (test 120 ML/MIN/1.73 code = 58018) CALC BUN/CREAT (test code = 31 RATIO [...] (test code = 2219) 22 U/L HEMOGLOBIN [id number] 00:00:00 Test Item Value Reference Range Interpretation Comments HEMOGLOBIN A1c (test code = 37446) 7.7 % HEMOGLOBIN [id number] 00:00:00 Test Item Value Reference Range Interpretation Comments HEMOGLOBIN A1c (test code = 33183) 7.7 % HEMOGLOBIN [id number] 00:00:00 Test Item Value Reference Range Interpretation Comments HEMOGLOBIN A1c (test code = 15179) 7.7 % CBC W/AUTO [id number] 00:00:00 Test Item Value Reference Range Interpretation [...] code = 1015) 224 K/UL CBC W/AUTO [id number] 00:00:00 Test Item Value Reference Range Interpretation [...] code = 1015) 224 K/UL CBC W/AUTO [id number] 00:00:00 Test Item Value Reference Range Interpretation [...] TSH (test code = 2821) <0.10 UIU/ML [id number] 00:00:00 Test Item Value Reference Range Interpretation Comments MAGNESIUM (test code = 2226) 1.4 MG/DL [id number] 00:00:00 Test Item Value Reference Range Interpretation Comments MAGNESIUM (test code = 2226) 1.4 MG/DL [id number] 00:00:00 Test Item Value Reference Range Interpretation Comments MAGNESIUM (test code = 2226) 1.4 MG/DL COMPREHENSIVE METABOLIC [id number] 00:00:00 Test Item Value Reference Range Interpretation Comments GLUCOSE (test code = 2217) 234 MG/DL BUN (test code = 2208) 17 MG/DL CREATININE (test code = 2214) 0.54 MG/DL eGFR AMER. (test code 139 ML/MIN/1.73 = 57350) eGFR NON- AMER. (test 120 ML/MIN/1.73 code = 84214) CALC BUN/CREAT (test code = 31 RATIO [...] code = 2219) 22 U/L COMPREHENSIVE METABOLIC [id number] 00:00:00 Test Item Value Reference Range Interpretation Comments GLUCOSE (test code = 2217) 234 MG/DL BUN (test code = 2208) 17 MG/DL CREATININE (test code = 2214) 0.54 MG/DL eGFR AMER. (test code 139 ML/MIN/1.73 = 31449) eGFR NON- AMER. (test 120 ML/MIN/1.73 code = 32680) CALC BUN/CREAT (test code = 31 RATIO [...] (test code = 2219) 22 U/L HEMOGLOBIN [id number] 00:00:00 Test Item Value Reference Range Interpretation Comments HEMOGLOBIN A1c (test code = 33391) 7.7 % HEMOGLOBIN [id number] 00:00:00 Test Item Value Reference Range Interpretation Comments HEMOGLOBIN A1c (test code = 80852) 7.7 % HEMOGLOBIN [id number] 00:00:00 Test Item Value Reference Range Interpretation Comments HEMOGLOBIN A1c (test code = 36714) 7.7 % CBC W/AUTO [id number] 00:00:00 Test Item Value Reference Range Interpretation [...] code = 1015) 224 K/UL CBC W/AUTO [id number] 00:00:00 Test Item Value Reference Range Interpretation [...] code = 1015) 224 K/UL CBC W/AUTO [id number] 00:00:00 Test Item Value Reference Range Interpretation [...] TSH (test code = 2821) <0.10 UIU/ML [id number] 00:00:00 Test Item Value Reference Range Interpretation Comments MAGNESIUM (test code = 2226) 1.4 MG/DL [id number] 00:00:00 Test Item Value Reference Range Interpretation Comments MAGNESIUM (test code = 2226) 1.4 MG/DL [id number] 00:00:00 Test Item Value Reference Range Interpretation Comments MAGNESIUM (test code = 2226) 1.4 MG/DL COMPREHENSIVE METABOLIC [id number] 00:00:00 Test Item Value Reference Range Interpretation Comments GLUCOSE (test code = 2217) 234 MG/DL BUN (test code = 2208) 17 MG/DL CREATININE (test code = 2214) 0.54 MG/DL eGFR AMER. (test code 139 ML/MIN/1.73 = 11651) eGFR NON- AMER. (test 120 ML/MIN/1.73 code = 54492) CALC BUN/CREAT (test code = 31 RATIO [...] code = 2219) 22 U/L COMPREHENSIVE METABOLIC [id number] 00:00:00 Test Item Value Reference Range Interpretation Comments GLUCOSE (test code = 2217) 234 MG/DL BUN (test code = 2208) 17 MG/DL CREATININE (test code = 2214) 0.54 MG/DL eGFR AMER. (test code 139 ML/MIN/1.73 = 70918) eGFR NON- AMER. (test 120 ML/MIN/1.73 code = 13864) CALC BUN/CREAT (test code = 31 RATIO [...] (test code = 2219) 22 U/L HEMOGLOBIN [id number] 00:00:00 Test Item Value Reference Range Interpretation Comments HEMOGLOBIN A1c (test code = 63840) 7.7 % HEMOGLOBIN [id number] 00:00:00 Test Item Value Reference Range Interpretation Comments HEMOGLOBIN A1c (test code = 04117) 7.7 % HEMOGLOBIN [id number] 00:00:00 Test Item Value Reference Range Interpretation Comments HEMOGLOBIN A1c (test code = 42930) 7.7 % CBC W/AUTO [id number] 00:00:00 Test Item Value Reference Range Interpretation [...] code = 1015) 224 K/UL CBC W/AUTO [id number] 00:00:00 Test Item Value Reference Range Interpretation [...] code = 1015) 224 K/UL CBC W/AUTO [id number] 00:00:00 Test Item Value Reference Range Interpretation [...] TSH (test code = 2821) <0.10 UIU/ML [id number] 00:00:00 Test Item Value Reference Range Interpretation Comments MAGNESIUM (test code = 2226) 1.4 MG/DL [id number] 00:00:00 Test Item Value Reference Range Interpretation Comments MAGNESIUM (test code = 2226) 1.4 MG/DL [id number] 00:00:00 Test Item Value Reference Range Interpretation Comments MAGNESIUM (test code = 2226) 1.4 MG/DL COMPREHENSIVE METABOLIC [id number] 00:00:00 Test Item Value Reference Range Interpretation Comments GLUCOSE (test code = 2217) 234 MG/DL BUN (test code = 2208) 17 MG/DL CREATININE (test code = 2214) 0.54 MG/DL eGFR AMER. (test code 139 ML/MIN/1.73 = 29339) eGFR NON- AMER. (test 120 ML/MIN/1.73 code = 43357) CALC BUN/CREAT (test code = 31 RATIO [...] code = 2219) 22 U/L COMPREHENSIVE METABOLIC [id number] 00:00:00 Test Item Value Reference Range Interpretation Comments GLUCOSE (test code = 2217) 234 MG/DL BUN (test code = 2208) 17 MG/DL CREATININE (test code = 2214) 0.54 MG/DL eGFR AMER. (test code 139 ML/MIN/1.73 = 51874) eGFR NON- AMER. (test 120 ML/MIN/1.73 code = 91348) CALC BUN/CREAT (test code = 31 RATIO [...] (test code = 2219) 22 U/L HEMOGLOBIN [id number] 00:00:00 Test Item Value Reference Range Interpretation Comments HEMOGLOBIN A1c (test code = 88839) 7.7 % HEMOGLOBIN [id number] 00:00:00 Test Item Value Reference Range Interpretation Comments HEMOGLOBIN A1c (test code = 88671) 7.7 % HEMOGLOBIN [id number] 00:00:00 Test Item Value Reference Range Interpretation Comments HEMOGLOBIN A1c (test code = 05382) 7.7 % CBC W/AUTO [id number] 00:00:00 Test Item Value Reference Range Interpretation [...] code = 1015) 224 K/UL CBC W/AUTO [id number] 00:00:00 Test Item Value Reference Range Interpretation [...] code = 1015) 224 K/UL CBC W/AUTO [id number] 00:00:00 Test Item Value Reference Range Interpretation [...] TSH (test code = 2821) <0.10 UIU/ML [id number] 00:00:00 Test Item Value Reference Range Interpretation Comments MAGNESIUM (test code = 2226) 1.4 MG/DL [id number] 00:00:00 Test Item Value Reference Range Interpretation Comments MAGNESIUM (test code = 2226) 1.4 MG/DL [id number] 00:00:00 Test Item Value Reference Range Interpretation Comments MAGNESIUM (test code = 2226) 1.4 MG/DL COMPREHENSIVE METABOLIC [id number] 00:00:00 Test Item Value Reference Range Interpretation Comments GLUCOSE (test code = 2217) 234 MG/DL BUN (test code = 2208) 17 MG/DL CREATININE (test code = 2214) 0.54 MG/DL eGFR AMER. (test code 139 ML/MIN/1.73 = 21351) eGFR NON- AMER. (test 120 ML/MIN/1.73 code = 80113) CALC BUN/CREAT (test code = 31 RATIO [...] code = 2219) 22 U/L COMPREHENSIVE METABOLIC [id number] 00:00:00 Test Item Value Reference Range Interpretation Comments GLUCOSE (test code = 2217) 234 MG/DL BUN (test code = 8) 17 MG/DL CREATININE (test code = 2214) 0.54 MG/DL eGFR AMER. (test code 139 ML/MIN/1.73 = 97141) eGFR NON- AMER. (test 120 ML/MIN/1.73 code = 11056) CALC BUN/CREAT (test code = 31 RATIO [...] (test code = 2219) 22 U/L HEMOGLOBIN [id number] 00:00:00 Test Item Value Reference Range Interpretation Comments HEMOGLOBIN A1c (test code = 58239) 7.7 % HEMOGLOBIN [id number] 00:00:00 Test Item Value Reference Range Interpretation Comments HEMOGLOBIN A1c (test code = 32110) 7.7 % HEMOGLOBIN [id number] 00:00:00 Test Item Value Reference Range Interpretation Comments HEMOGLOBIN A1c (test code = 06091) 7.7 % CBC W/AUTO [id number] 00:00:00 Test Item Value Reference Range Interpretation [...] code = 1015) 224 K/UL CBC W/AUTO [id number] 00:00:00 Test Item Value Reference Range Interpretation [...] code = 1015) 224 K/UL CBC W/AUTO [id number] 00:00:00 Test Item Value Reference Range Interpretation [...] TSH (test code = 2821) <0.10 UIU/ML [id number] 00:00:00 Test Item Value Reference Range Interpretation Comments MAGNESIUM (test code = 2226) 1.4 MG/DL [id number] 00:00:00 Test Item Value Reference Range Interpretation Comments MAGNESIUM (test code = 2226) 1.4 MG/DL [id number] 00:00:00 Test Item Value Reference Range Interpretation Comments MAGNESIUM (test code = 2226) 1.4 MG/DL COMPREHENSIVE METABOLIC [id number] 00:00:00 Test Item Value Reference Range Interpretation Comments GLUCOSE (test code = 2217) 234 MG/DL BUN (test code = 2208) 17 MG/DL CREATININE (test code = 2214) 0.54 MG/DL eGFR AMER. (test code 139 ML/MIN/1.73 = 40129) eGFR NON- AMER. (test 120 ML/MIN/1.73 code = 43761) CALC BUN/CREAT (test code = 31 RATIO [...] code = 2219) 22 U/L COMPREHENSIVE METABOLIC [id number] 00:00:00 Test Item Value Reference Range Interpretation Comments GLUCOSE (test code = 2217) 234 MG/DL BUN (test code = 2208) 17 MG/DL CREATININE (test code = 2214) 0.54 MG/DL eGFR AMER. (test code 139 ML/MIN/1.73 = 08860) eGFR NON- AMER. (test 120 ML/MIN/1.73 code = 16692) CALC BUN/CREAT (test code = 31 RATIO [...] (test code = 2219) 22 U/L HEMOGLOBIN [id number] 00:00:00 Test Item Value Reference Range Interpretation Comments HEMOGLOBIN A1c (test code = 84467) 7.7 % HEMOGLOBIN [id number] 00:00:00 Test Item Value Reference Range Interpretation Comments HEMOGLOBIN A1c (test code = 65390) 7.7 % HEMOGLOBIN [id number] 00:00:00 Test Item Value Reference Range Interpretation Comments HEMOGLOBIN A1c (test code = 05417) 7.7 % CBC W/AUTO [id number] 00:00:00 Test Item Value Reference Range Interpretation [...] code = 1015) 224 K/UL CBC W/AUTO [id number] 00:00:00 Test Item Value Reference Range Interpretation [...] code = 1015) 224 K/UL CBC W/AUTO [id number] 00:00:00 Test Item Value Reference Range Interpretation [...] TSH (test code = 2821) <0.10 UIU/ML [id number] 00:00:00 Test Item Value Reference Range Interpretation Comments MAGNESIUM (test code = 2226) 1.4 MG/DL [id number] 00:00:00 Test Item Value Reference Range Interpretation Comments MAGNESIUM (test code = 2226) 1.4 MG/DL [id number] 00:00:00 Test Item Value Reference Range Interpretation Comments MAGNESIUM (test code = 2226) 1.4 MG/DL [id number] 00:00:00 Test Item Value Reference Range Interpretation Comments MAGNESIUM (test code = 2226) 1.4 MG/DL COMPREHENSIVE METABOLIC [id number] 00:00:00 Test Item Value Reference Range Interpretation Comments GLUCOSE (test code = 2217) 234 MG/DL BUN (test code = 2208) 17 MG/DL CREATININE (test code = 2214) 0.54 MG/DL eGFR AMER. (test code 139 ML/MIN/1.73 = 25898) eGFR NON- AMER. (test 120 ML/MIN/1.73 code = 94551) CALC BUN/CREAT (test code = 31 RATIO [...] code = 2219) 22 U/L COMPREHENSIVE METABOLIC [id number] 00:00:00 Test Item Value Reference Range Interpretation Comments GLUCOSE (test code = 2217) 234 MG/DL BUN (test code = 2208) 17 MG/DL CREATININE (test code = 2214) 0.54 MG/DL eGFR AMER. (test code 139 ML/MIN/1.73 = 05186) eGFR NON- AMER. (test 120 ML/MIN/1.73 code = 42071) CALC BUN/CREAT (test code = 31 RATIO [...] (test code = 2219) 22 U/L HEMOGLOBIN [id number] 00:00:00 Test Item Value Reference Range Interpretation Comments HEMOGLOBIN A1c (test code = 98960) 7.7 % HEMOGLOBIN [id number] 00:00:00 Test Item Value Reference Range Interpretation Comments HEMOGLOBIN A1c (test code = 09154) 7.7 % HEMOGLOBIN [id number] 00:00:00 Test Item Value Reference Range Interpretation Comments HEMOGLOBIN A1c (test code = 13288) 7.7 % [id number] 00:00:00 Test Item Value Reference Range Interpretation Comments MAGNESIUM (test code = 2226) 1.4 MG/DL CBC W/AUTO [id number] 00:00:00 Test Item Value Reference Range Interpretation [...] code = 1015) 224 K/UL CBC W/AUTO [id number] 00:00:00 Test Item Value Reference Range Interpretation [...] code = 1015) 224 K/UL CBC W/AUTO [id number] 00:00:00 Test Item Value Reference Range Interpretation [...] code = 2821) <0.10 UIU/ML COMPREHENSIVE METABOLIC [id number] 00:00:00 Test Item Value Reference Range Interpretation Comments GLUCOSE (test code = 2217) 234 MG/DL BUN (test code = 2208) 17 MG/DL CREATININE (test code = 2214) 0.54 MG/DL eGFR AMER. (test code 139 ML/MIN/1.73 = 47105) eGFR NON- AMER. (test 120 ML/MIN/1.73 code = 06965) CALC BUN/CREAT (test code = 31 RATIO [...] (test code = 2219) 22 U/L HEMOGLOBIN [id number] 00:00:00 Test Item Value Reference Range Interpretation Comments HEMOGLOBIN A1c (test code = 86506) 7.7 % HEMOGLOBIN [id number] 00:00:00 Test Item Value Reference Range Interpretation Comments HEMOGLOBIN A1c (test code = 38829) 7.7 % [id number] 00:00:00 Test Item Value Reference Range Interpretation Comments MAGNESIUM (test code = 2226) 1.4 MG/DL [id number] 00:00:00 Test Item Value Reference Range Interpretation Comments MAGNESIUM (test code = 2226) 1.4 MG/DL [id number] 00:00:00 Test Item Value Reference Range Interpretation Comments MAGNESIUM (test code = 2226) 1.4 MG/DL CBC W/AUTO [id number] 00:00:00 Test Item Value Reference Range Interpretation [...] code = 1015) 224 K/UL COMPREHENSIVE METABOLIC [id number] 00:00:00 Test Item Value Reference Range Interpretation Comments GLUCOSE (test code = 2217) 234 MG/DL BUN (test code = 2208) 17 MG/DL CREATININE (test code = 2214) 0.54 MG/DL eGFR AMER. (test code 139 ML/MIN/1.73 = 33900) eGFR NON- AMER. (test 120 ML/MIN/1.73 code = 08689) CALC BUN/CREAT (test code = 31 RATIO [...] code = 2219) 22 U/L CBC W/AUTO [id number] 00:00:00 Test Item Value Reference Range Interpretation [...] code = 1015) 224 K/UL COMPREHENSIVE METABOLIC [id number] 00:00:00 Test Item Value Reference Range Interpretation Comments GLUCOSE (test code = 2217) 234 MG/DL BUN (test code = 2208) 17 MG/DL CREATININE (test code = 2214) 0.54 MG/DL eGFR AMER. (test code 139 ML/MIN/1.73 = 30885) eGFR NON- AMER. (test 120 ML/MIN/1.73 code = 75442) CALC BUN/CREAT (test code = 31 RATIO [...] (test code = 2219) 22 U/L HEMOGLOBIN [id number] 00:00:00 Test Item Value Reference Range Interpretation Comments HEMOGLOBIN A1c (test code = 02279) 7.7 % HEMOGLOBIN [id number] 00:00:00 Test Item Value Reference Range Interpretation Comments HEMOGLOBIN A1c (test code = 11159) 7.7 % HEMOGLOBIN [id number] 00:00:00 Test Item Value Reference Range Interpretation Comments HEMOGLOBIN A1c (test code = 86547) 7.7 % THYROID II PROFILE (T3U, T4, T7, TSH)[id number] 00:00:00 Test Item Value Reference Range Interpretation Comments T3 UPTAKE (test code = 2817) 24.7 % T4 (THYROXINE) (test code = 3.7 UG/DL 2819) CALCULATED T7 (FTI) (test code = 0.91 2820) TSH (test code = 2821) <0.10 UIU/ML CBC W/AUTO [id number] 00:00:00 Test Item Value Reference Range Interpretation [...] code = 1015) 224 K/UL CBC W/AUTO [id number] 00:00:00 Test Item Value Reference Range Interpretation [...] code = 1015) 224 K/UL CBC W/AUTO [id number] 00:00:00 Test Item Value Reference Range Interpretation [...] TSH (test code = 2821) <0.10 UIU/ML [id number] 00:00:00 Test Item Value Reference Range Interpretation Comments MAGNESIUM (test code = 2226) 1.4 MG/DL [id number] 00:00:00 Test Item Value Reference Range Interpretation Comments MAGNESIUM (test code = 2226) 1.4 MG/DL [id number] 00:00:00 Test Item Value Reference Range Interpretation Comments MAGNESIUM (test code = 2226) 1.4 MG/DL COMPREHENSIVE METABOLIC [id number] 00:00:00 Test Item Value Reference Range Interpretation Comments GLUCOSE (test code = 2217) 234 MG/DL BUN (test code = 2208) 17 MG/DL CREATININE (test code = 2214) 0.54 MG/DL eGFR AMER. (test code 139 ML/MIN/1.73 = 90860) eGFR NON- AMER. (test 120 ML/MIN/1.73 code = 56030) CALC BUN/CREAT (test code = 31 RATIO [...] code = 2219) 22 U/L COMPREHENSIVE METABOLIC [id number] 00:00:00 Test Item Value Reference Range Interpretation Comments GLUCOSE (test code = 2217) 234 MG/DL BUN (test code = 2208) 17 MG/DL CREATININE (test code = 2214) 0.54 MG/DL eGFR AMER. (test code 139 ML/MIN/1.73 = 17483) eGFR NON- AMER. (test 120 ML/MIN/1.73 code = 34352) CALC BUN/CREAT (test code = 31 RATIO [...] (test code = 2219) 22 U/L HEMOGLOBIN [id number] 00:00:00 Test Item Value Reference Range Interpretation Comments HEMOGLOBIN A1c (test code = 36680) 7.7 % HEMOGLOBIN [id number] 00:00:00 Test Item Value Reference Range Interpretation Comments HEMOGLOBIN A1c (test code = 59497) 7.7 % HEMOGLOBIN [id number] 00:00:00 Test Item Value Reference Range Interpretation Comments HEMOGLOBIN A1c (test code = 06460) 7.7 % CBC W/AUTO [id number] 00:00:00 Test Item Value Reference Range Interpretation [...] code = 1015) 224 K/UL CBC W/AUTO [id number] 00:00:00 Test Item Value Reference Range Interpretation [...] code = 1015) 224 K/UL CBC W/AUTO [id number] 00:00:00 Test Item Value Reference Range Interpretation [...] TSH (test code = 2821) <0.10 UIU/ML [id number] 00:00:00 Test Item Value Reference Range Interpretation Comments MAGNESIUM (test code = 2226) 1.4 MG/DL [id number] 00:00:00 Test Item Value Reference Range Interpretation Comments MAGNESIUM (test code = 2226) 1.4 MG/DL [id number] 00:00:00 Test Item Value Reference Range Interpretation Comments MAGNESIUM (test code = 2226) 1.4 MG/DL COMPREHENSIVE METABOLIC [id number] 00:00:00 Test Item Value Reference Range Interpretation Comments GLUCOSE (test code = 2217) 234 MG/DL BUN (test code = 2208) 17 MG/DL CREATININE (test code = 2214) 0.54 MG/DL eGFR AMER. (test code 139 ML/MIN/1.73 = 23194) eGFR NON- AMER. (test 120 ML/MIN/1.73 code = 54220) CALC BUN/CREAT (test code = 31 RATIO [...] code = 2219) 22 U/L COMPREHENSIVE METABOLIC [id number] 00:00:00 Test Item Value Reference Range Interpretation Comments GLUCOSE (test code = 2217) 234 MG/DL BUN (test code = 2208) 17 MG/DL CREATININE (test code = 2214) 0.54 MG/DL eGFR AMER. (test code 139 ML/MIN/1.73 = 40350) eGFR NON- AMER. (test 120 ML/MIN/1.73 code = 86136) CALC BUN/CREAT (test code = 31 RATIO [...] (test code = 2219) 22 U/L HEMOGLOBIN [id number] 00:00:00 Test Item Value Reference Range Interpretation Comments HEMOGLOBIN A1c (test code = 69153) 7.7 % HEMOGLOBIN [id number] 00:00:00 Test Item Value Reference Range Interpretation Comments HEMOGLOBIN A1c (test code = 17560) 7.7 % HEMOGLOBIN [id number] 00:00:00 Test Item Value Reference Range Interpretation Comments HEMOGLOBIN A1c (test code = 49507) 7.7 % CBC W/AUTO [id number] 00:00:00 Test Item Value Reference Range Interpretation [...] code = 1015) 224 K/UL CBC W/AUTO [id number] 00:00:00 Test Item Value Reference Range Interpretation [...] code = 1015) 224 K/UL CBC W/AUTO [id number] 00:00:00 Test Item Value Reference Range Interpretation [...] <0.10 UIU/ML MARKO (ANTI-NUCLEAR AB) WITH REFLEX [id number] 00:00:00 Test Item Value Reference Range Interpretation Comments ANTI-NUCLEAR ANTIBODIES (test code = NEGATIVE 3506) MARKO (ANTI-NUCLEAR AB) WITH REFLEX [id number] 00:00:00 Test Item Value Reference Range Interpretation Comments ANTI-NUCLEAR ANTIBODIES (test code = NEGATIVE 3506) DHEA [id number] 00:00:00 Test Item Value Reference Range Interpretation Comments DHEA SULFATE (test code = 4225) 77 UG/DL DHEA [id number] 00:00:00 Test Item Value Reference Range Interpretation Comments DHEA SULFATE (test code = 4225) 77 UG/DL MARKO (ANTI-NUCLEAR AB) WITH REFLEX [id number] 00:00:00 Test Item Value Reference Range Interpretation Comments ANTI-NUCLEAR ANTIBODIES (test code = NEGATIVE 3506) MARKO (ANTI-NUCLEAR AB) WITH REFLEX [id number] 00:00:00 Test Item Value Reference Range Interpretation Comments ANTI-NUCLEAR ANTIBODIES (test code = NEGATIVE 3506) DHEA [id number] 00:00:00 Test Item Value Reference Range Interpretation Comments DHEA SULFATE (test code = 4225) 77 UG/DL DHEA [id number] 00:00:00 Test Item Value Reference Range Interpretation Comments DHEA SULFATE (test code = 4225) 77 UG/DL MARKO (ANTI-NUCLEAR AB) WITH REFLEX [id number] 00:00:00 Test Item Value Reference Range Interpretation Comments ANTI-NUCLEAR ANTIBODIES (test code = NEGATIVE 3506) MARKO (ANTI-NUCLEAR AB) WITH REFLEX [id number] 00:00:00 Test Item Value Reference Range Interpretation Comments ANTI-NUCLEAR ANTIBODIES (test code = NEGATIVE 3506) DHEA [id number] 00:00:00 Test Item Value Reference Range Interpretation Comments DHEA SULFATE (test code = 4225) 77 UG/DL DHEA [id number] 00:00:00 Test Item Value Reference Range Interpretation Comments DHEA SULFATE (test code = 4225) 77 UG/DL MARKO (ANTI-NUCLEAR AB) WITH REFLEX [id number] 00:00:00 Test Item Value Reference Range Interpretation Comments ANTI-NUCLEAR ANTIBODIES (test code = NEGATIVE 3506) MARKO (ANTI-NUCLEAR AB) WITH REFLEX [id number] 00:00:00 Test Item Value Reference Range Interpretation Comments ANTI-NUCLEAR ANTIBODIES (test code = NEGATIVE 3506) DHEA [id number] 00:00:00 Test Item Value Reference Range Interpretation Comments DHEA SULFATE (test code = 4225) 77 UG/DL DHEA [id number] 00:00:00 Test Item Value Reference Range Interpretation Comments DHEA SULFATE (test code = 4225) 77 UG/DL MARKO (ANTI-NUCLEAR AB) WITH REFLEX [id number] 00:00:00 Test Item Value Reference Range Interpretation Comments ANTI-NUCLEAR ANTIBODIES (test code = NEGATIVE 3506) MARKO (ANTI-NUCLEAR AB) WITH REFLEX [id number] 00:00:00 Test Item Value Reference Range Interpretation Comments ANTI-NUCLEAR ANTIBODIES (test code = NEGATIVE 3506) DHEA [id number] 00:00:00 Test Item Value Reference Range Interpretation Comments DHEA SULFATE (test code = 4225) 77 UG/DL DHEA [id number] 00:00:00 Test Item Value Reference Range Interpretation Comments DHEA SULFATE (test code = 4225) 77 UG/DL MARKO (ANTI-NUCLEAR AB) WITH REFLEX [id number] 00:00:00 Test Item Value Reference Range Interpretation Comments ANTI-NUCLEAR ANTIBODIES (test code = NEGATIVE 3506) MARKO (ANTI-NUCLEAR AB) WITH REFLEX [id number] 00:00:00 Test Item Value Reference Range Interpretation Comments ANTI-NUCLEAR ANTIBODIES (test code = NEGATIVE 3506) DHEA [id number] 00:00:00 Test Item Value Reference Range Interpretation Comments DHEA SULFATE (test code = 4225) 77 UG/DL DHEA [id number] 00:00:00 Test Item Value Reference Range Interpretation Comments DHEA SULFATE (test code = 4225) 77 UG/DL MARKO (ANTI-NUCLEAR AB) WITH REFLEX [id number] 00:00:00 Test Item Value Reference Range Interpretation Comments ANTI-NUCLEAR ANTIBODIES (test code = NEGATIVE 3506) MARKO (ANTI-NUCLEAR AB) WITH REFLEX [id number] 00:00:00 Test Item Value Reference Range Interpretation Comments ANTI-NUCLEAR ANTIBODIES (test code = NEGATIVE 3506) DHEA [id number] 00:00:00 Test Item Value Reference Range Interpretation Comments DHEA SULFATE (test code = 4225) 77 UG/DL DHEA [id number] 00:00:00 Test Item Value Reference Range Interpretation Comments DHEA SULFATE (test code = 4225) 77 UG/DL MARKO (ANTI-NUCLEAR AB) WITH REFLEX [id number] 00:00:00 Test Item Value Reference Range Interpretation Comments ANTI-NUCLEAR ANTIBODIES (test code = NEGATIVE 3506) MARKO (ANTI-NUCLEAR AB) WITH REFLEX [id number] 00:00:00 Test Item Value Reference Range Interpretation Comments ANTI-NUCLEAR ANTIBODIES (test code = NEGATIVE 3506) MARKO (ANTI-NUCLEAR AB) WITH REFLEX [id number] 00:00:00 Test Item Value Reference Range Interpretation Comments ANTI-NUCLEAR ANTIBODIES (test code = NEGATIVE 3506) DHEA [id number] 00:00:00 Test Item Value Reference Range Interpretation Comments DHEA SULFATE (test code = 4225) 77 UG/DL DHEA [id number] 00:00:00 Test Item Value Reference Range Interpretation Comments DHEA SULFATE (test code = 4225) 77 UG/DL DHEA [id number] 00:00:00 Test Item Value Reference Range Interpretation Comments DHEA SULFATE (test code = 4225) 77 UG/DL MARKO (ANTI-NUCLEAR AB) WITH REFLEX [id number] 00:00:00 Test Item Value Reference Range Interpretation Comments ANTI-NUCLEAR ANTIBODIES (test code = NEGATIVE 3506) MARKO (ANTI-NUCLEAR AB) WITH REFLEX [id number] 00:00:00 Test Item Value Reference Range Interpretation Comments ANTI-NUCLEAR ANTIBODIES (test code = NEGATIVE 3506) DHEA [id number] 00:00:00 Test Item Value Reference Range Interpretation Comments DHEA SULFATE (test code = 4225) 77 UG/DL DHEA [id number] 00:00:00 Test Item Value Reference Range Interpretation Comments DHEA SULFATE (test code = 4225) 77 UG/DL MARKO (ANTI-NUCLEAR AB) WITH REFLEX [id number] 00:00:00 Test Item Value Reference Range Interpretation Comments ANTI-NUCLEAR ANTIBODIES (test code = NEGATIVE 3506) MARKO (ANTI-NUCLEAR AB) WITH REFLEX [id number] 00:00:00 Test Item Value Reference Range Interpretation Comments ANTI-NUCLEAR ANTIBODIES (test code = NEGATIVE 3506) DHEA [id number] 00:00:00 Test Item Value Reference Range Interpretation Comments DHEA SULFATE (test code = 4225) 77 UG/DL DHEA [id number] 00:00:00 Test Item Value Reference Range Interpretation Comments DHEA SULFATE (test code = 4225) 77 UG/DL VITAMIN D,1,01-[id number] 00:00:00 Test Item Value Reference Range Interpretation Comments VITAMIN D,1,25-DIHYDROXY (test 11.3 PG/ML code = 4960) VITAMIN D,1,09-[id number] 00:00:00 Test Item Value Reference Range Interpretation Comments VITAMIN D,1,25-DIHYDROXY (test 11.3 PG/ML code = 4960) VITAMIN B 12 AND FOLIC [id number] 00:00:00 Test Item Value Reference Range Interpretation Comments VITAMIN B-12 (test code = 2840) 925 PG/ML FOLIC ACID (test code = 2695) >24.0 NG/ML VITAMIN B 12 AND FOLIC [id number] 00:00:00 Test Item Value Reference Range Interpretation [...] (test code = 2821) 0.4 UIU/ML LIPID [id number] 00:00:00 Test Item Value Reference Range Interpretation Comments CHOLESTEROL (test code = 2210) 172 MG/DL TRIGLYCERIDES (test code = 2232) 136 MG/DL HDL CHOLESTEROL (test code = 2220) 44 MG/DL CALC LDL CHOL (test code = 2237) 101 MG/DL RISK RATIO LDL/HDL (test code = 2.29 RATIO 2238) LIPID [id number] 00:00:00 Test Item Value Reference Range Interpretation Comments CHOLESTEROL (test code = 2210) 172 MG/DL TRIGLYCERIDES (test code = 2232) 136 MG/DL HDL CHOLESTEROL (test code = 2220) 44 MG/DL CALC LDL CHOL (test code = 2237) 101 MG/DL RISK RATIO LDL/HDL (test code = 2.29 RATIO 2238) [id number] 00:00:00 Test Item Value Reference Range Interpretation Comments TESTOSTERONE (test code = 2830) <12 NG/DL TESTOSTERONE REF RANGE (test code = (NOTE) 66293) [id number] 00:00:00 Test Item Value Reference Range Interpretation Comments TESTOSTERONE (test code = 2830) <12 NG/DL TESTOSTERONE REF RANGE (test code = (NOTE) 06935) [id number] 00:00:00 Test Item Value Reference Range Interpretation Comments PROLACTIN (test code = 2800) 5.8 NG/ML [id number] 00:00:00 Test Item Value Reference Range Interpretation Comments PROLACTIN (test code = 2800) 5.8 NG/ML FSH + LH [id number] 00:00:00 Test Item Value Reference Range Interpretation Comments FOLLICLE STIM HORMONE (test code = 8.9 MIU/ML 2700) LUTEINIZING HORMONE (test code = 6.5 MIU/ML 2776) FSH + LH [id number] 00:00:00 Test Item Value Reference Range Interpretation Comments FOLLICLE STIM HORMONE (test code = 8.9 MIU/ML 2700) LUTEINIZING HORMONE (test code = 6.5 MIU/ML 2776) VITAMIN D,1,73-[id number] 00:00:00 Test Item Value Reference Range Interpretation Comments VITAMIN D,1,25-DIHYDROXY (test 11.3 PG/ML code = 4960) VITAMIN D,1,51-[id number] 00:00:00 Test Item Value Reference Range Interpretation Comments VITAMIN D,1,25-DIHYDROXY (test 11.3 PG/ML code = 4960) VITAMIN B 12 AND FOLIC [id number] 00:00:00 Test Item Value Reference Range Interpretation Comments VITAMIN B-12 (test code = 2840) 925 PG/ML FOLIC ACID (test code = 2695) >24.0 NG/ML VITAMIN B 12 AND FOLIC [id number] 00:00:00 Test Item Value Reference Range Interpretation [...] (test code = 2821) 0.4 UIU/ML LIPID [id number] 00:00:00 Test Item Value Reference Range Interpretation Comments CHOLESTEROL (test code = 2210) 172 MG/DL TRIGLYCERIDES (test code = 2232) 136 MG/DL HDL CHOLESTEROL (test code = 2220) 44 MG/DL CALC LDL CHOL (test code = 2237) 101 MG/DL RISK RATIO LDL/HDL (test code = 2.29 RATIO 2238) LIPID [id number] 00:00:00 Test Item Value Reference Range Interpretation Comments CHOLESTEROL (test code = 2210) 172 MG/DL TRIGLYCERIDES (test code = 2232) 136 MG/DL HDL CHOLESTEROL (test code = 2220) 44 MG/DL CALC LDL CHOL (test code = 2237) 101 MG/DL RISK RATIO LDL/HDL (test code = 2.29 RATIO 2238) [id number] 00:00:00 Test Item Value Reference Range Interpretation Comments TESTOSTERONE (test code = 2830) <12 NG/DL TESTOSTERONE REF RANGE (test code = (NOTE) 82870) [id number] 00:00:00 Test Item Value Reference Range Interpretation Comments TESTOSTERONE (test code = 2830) <12 NG/DL TESTOSTERONE REF RANGE (test code = (NOTE) 76156) [id number] 00:00:00 Test Item Value Reference Range Interpretation Comments PROLACTIN (test code = 2800) 5.8 NG/ML [id number] 00:00:00 Test Item Value Reference Range Interpretation Comments PROLACTIN (test code = 2800) 5.8 NG/ML FSH + LH [id number] 00:00:00 Test Item Value Reference Range Interpretation Comments FOLLICLE STIM HORMONE (test code = 8.9 MIU/ML 2700) LUTEINIZING HORMONE (test code = 6.5 MIU/ML 2776) FSH + LH [id number] 00:00:00 Test Item Value Reference Range Interpretation Comments FOLLICLE STIM HORMONE (test code = 8.9 MIU/ML 2700) LUTEINIZING HORMONE (test code = 6.5 MIU/ML 2776) VITAMIN D,1,80-[id number] 00:00:00 Test Item Value Reference Range Interpretation Comments VITAMIN D,1,25-DIHYDROXY (test 11.3 PG/ML code = 4960) VITAMIN D,1,49-[id number] 00:00:00 Test Item Value Reference Range Interpretation Comments VITAMIN D,1,25-DIHYDROXY (test 11.3 PG/ML code = 4960) VITAMIN B 12 AND FOLIC [id number] 00:00:00 Test Item Value Reference Range Interpretation Comments VITAMIN B-12 (test code = 2840) 925 PG/ML FOLIC ACID (test code = 2695) >24.0 NG/ML VITAMIN B 12 AND FOLIC [id number] 00:00:00 Test Item Value Reference Range Interpretation [...] (test code = 2821) 0.4 UIU/ML LIPID [id number] 00:00:00 Test Item Value Reference Range Interpretation Comments CHOLESTEROL (test code = 2210) 172 MG/DL TRIGLYCERIDES (test code = 2232) 136 MG/DL HDL CHOLESTEROL (test code = 2220) 44 MG/DL CALC LDL CHOL (test code = 2237) 101 MG/DL RISK RATIO LDL/HDL (test code = 2.29 RATIO 2238) LIPID [id number] 00:00:00 Test Item Value Reference Range Interpretation Comments CHOLESTEROL (test code = 2210) 172 MG/DL TRIGLYCERIDES (test code = 2232) 136 MG/DL HDL CHOLESTEROL (test code = 2220) 44 MG/DL CALC LDL CHOL (test code = 2237) 101 MG/DL RISK RATIO LDL/HDL (test code = 2.29 RATIO 2238) [id number] 00:00:00 Test Item Value Reference Range Interpretation Comments TESTOSTERONE (test code = 2830) <12 NG/DL TESTOSTERONE REF RANGE (test code = (NOTE) 73526) [id number] 00:00:00 Test Item Value Reference Range Interpretation Comments TESTOSTERONE (test code = 2830) <12 NG/DL TESTOSTERONE REF RANGE (test code = (NOTE) 44588) [id number] 00:00:00 Test Item Value Reference Range Interpretation Comments PROLACTIN (test code = 2800) 5.8 NG/ML [id number] 00:00:00 Test Item Value Reference Range Interpretation Comments PROLACTIN (test code = 2800) 5.8 NG/ML FSH + LH [id number] 00:00:00 Test Item Value Reference Range Interpretation Comments FOLLICLE STIM HORMONE (test code = 8.9 MIU/ML 2700) LUTEINIZING HORMONE (test code = 6.5 MIU/ML 2776) FSH + LH [id number] 00:00:00 Test Item Value Reference Range Interpretation Comments FOLLICLE STIM HORMONE (test code = 8.9 MIU/ML 2700) LUTEINIZING HORMONE (test code = 6.5 MIU/ML 2776) VITAMIN D,1,09-[id number] 00:00:00 Test Item Value Reference Range Interpretation Comments VITAMIN D,1,25-DIHYDROXY (test 11.3 PG/ML code = 4960) VITAMIN D,1,80-[id number] 00:00:00 Test Item Value Reference Range Interpretation Comments VITAMIN D,1,25-DIHYDROXY (test 11.3 PG/ML code = 4960) VITAMIN B 12 AND FOLIC [id number] 00:00:00 Test Item Value Reference Range Interpretation Comments VITAMIN B-12 (test code = 2840) 925 PG/ML FOLIC ACID (test code = 2695) >24.0 NG/ML VITAMIN B 12 AND FOLIC [id number] 00:00:00 Test Item Value Reference Range Interpretation [...] (test code = 2821) 0.4 UIU/ML LIPID [id number] 00:00:00 Test Item Value Reference Range Interpretation Comments CHOLESTEROL (test code = 2210) 172 MG/DL TRIGLYCERIDES (test code = 2232) 136 MG/DL HDL CHOLESTEROL (test code = 2220) 44 MG/DL CALC LDL CHOL (test code = 2237) 101 MG/DL RISK RATIO LDL/HDL (test code = 2.29 RATIO 2238) LIPID [id number] 00:00:00 Test Item Value Reference Range Interpretation Comments CHOLESTEROL (test code = 2210) 172 MG/DL TRIGLYCERIDES (test code = 2232) 136 MG/DL HDL CHOLESTEROL (test code = 2220) 44 MG/DL CALC LDL CHOL (test code = 2237) 101 MG/DL RISK RATIO LDL/HDL (test code = 2.29 RATIO 2238) [id number] 00:00:00 Test Item Value Reference Range Interpretation Comments TESTOSTERONE (test code = 2830) <12 NG/DL TESTOSTERONE REF RANGE (test code = (NOTE) 98377) [id number] 00:00:00 Test Item Value Reference Range Interpretation Comments TESTOSTERONE (test code = 2830) <12 NG/DL TESTOSTERONE REF RANGE (test code = (NOTE) 75190) [id number] 00:00:00 Test Item Value Reference Range Interpretation Comments PROLACTIN (test code = 2800) 5.8 NG/ML [id number] 00:00:00 Test Item Value Reference Range Interpretation Comments PROLACTIN (test code = 2800) 5.8 NG/ML FSH + LH [id number] 00:00:00 Test Item Value Reference Range Interpretation Comments FOLLICLE STIM HORMONE (test code = 8.9 MIU/ML 2700) LUTEINIZING HORMONE (test code = 6.5 MIU/ML 2776) FSH + LH [id number] 00:00:00 Test Item Value Reference Range Interpretation Comments FOLLICLE STIM HORMONE (test code = 8.9 MIU/ML 2700) LUTEINIZING HORMONE (test code = 6.5 MIU/ML 2776) VITAMIN D,1,90-[id number] 00:00:00 Test Item Value Reference Range Interpretation Comments VITAMIN D,1,25-DIHYDROXY (test 11.3 PG/ML code = 4960) VITAMIN D,1,92-[id number] 00:00:00 Test Item Value Reference Range Interpretation Comments VITAMIN D,1,25-DIHYDROXY (test 11.3 PG/ML code = 4960) VITAMIN B 12 AND FOLIC [id number] 00:00:00 Test Item Value Reference Range Interpretation Comments VITAMIN B-12 (test code = 2840) 925 PG/ML FOLIC ACID (test code = 2695) >24.0 NG/ML VITAMIN B 12 AND FOLIC [id number] 00:00:00 Test Item Value Reference Range Interpretation [...] (test code = 2821) 0.4 UIU/ML LIPID [id number] 00:00:00 Test Item Value Reference Range Interpretation Comments CHOLESTEROL (test code = 2210) 172 MG/DL TRIGLYCERIDES (test code = 2232) 136 MG/DL HDL CHOLESTEROL (test code = 2220) 44 MG/DL CALC LDL CHOL (test code = 2237) 101 MG/DL RISK RATIO LDL/HDL (test code = 2.29 RATIO 2238) LIPID [id number] 00:00:00 Test Item Value Reference Range Interpretation Comments CHOLESTEROL (test code = 2210) 172 MG/DL TRIGLYCERIDES (test code = 2232) 136 MG/DL HDL CHOLESTEROL (test code = 2220) 44 MG/DL CALC LDL CHOL (test code = 2237) 101 MG/DL RISK RATIO LDL/HDL (test code = 2.29 RATIO 2238) [id number] 00:00:00 Test Item Value Reference Range Interpretation Comments TESTOSTERONE (test code = 2830) <12 NG/DL TESTOSTERONE REF RANGE (test code = (NOTE) 61476) [id number] 00:00:00 Test Item Value Reference Range Interpretation Comments TESTOSTERONE (test code = 2830) <12 NG/DL TESTOSTERONE REF RANGE (test code = (NOTE) 80328) [id number] 00:00:00 Test Item Value Reference Range Interpretation Comments PROLACTIN (test code = 2800) 5.8 NG/ML [id number] 00:00:00 Test Item Value Reference Range Interpretation Comments PROLACTIN (test code = 2800) 5.8 NG/ML FSH + LH [id number] 00:00:00 Test Item Value Reference Range Interpretation Comments FOLLICLE STIM HORMONE (test code = 8.9 MIU/ML 2700) LUTEINIZING HORMONE (test code = 6.5 MIU/ML 2776) FSH + LH [id number] 00:00:00 Test Item Value Reference Range Interpretation Comments FOLLICLE STIM HORMONE (test code = 8.9 MIU/ML 2700) LUTEINIZING HORMONE (test code = 6.5 MIU/ML 2776) VITAMIN D,1,09-[id number] 00:00:00 Test Item Value Reference Range Interpretation Comments VITAMIN D,1,25-DIHYDROXY (test 11.3 PG/ML code = 4960) VITAMIN D,1,86-[id number] 00:00:00 Test Item Value Reference Range Interpretation Comments VITAMIN D,1,25-DIHYDROXY (test 11.3 PG/ML code = 4960) VITAMIN B 12 AND FOLIC [id number] 00:00:00 Test Item Value Reference Range Interpretation Comments VITAMIN B-12 (test code = 2840) 925 PG/ML FOLIC ACID (test code = 2695) >24.0 NG/ML VITAMIN B 12 AND FOLIC [id number] 00:00:00 Test Item Value Reference Range Interpretation [...] (test code = 2821) 0.4 UIU/ML LIPID [id number] 00:00:00 Test Item Value Reference Range Interpretation Comments CHOLESTEROL (test code = 2210) 172 MG/DL TRIGLYCERIDES (test code = 2232) 136 MG/DL HDL CHOLESTEROL (test code = 2220) 44 MG/DL CALC LDL CHOL (test code = 2237) 101 MG/DL RISK RATIO LDL/HDL (test code = 2.29 RATIO 2238) LIPID [id number] 00:00:00 Test Item Value Reference Range Interpretation Comments CHOLESTEROL (test code = 2210) 172 MG/DL TRIGLYCERIDES (test code = 2232) 136 MG/DL HDL CHOLESTEROL (test code = 2220) 44 MG/DL CALC LDL CHOL (test code = 2237) 101 MG/DL RISK RATIO LDL/HDL (test code = 2.29 RATIO 2238) [id number] 00:00:00 Test Item Value Reference Range Interpretation Comments TESTOSTERONE (test code = 2830) <12 NG/DL TESTOSTERONE REF RANGE (test code = (NOTE) 01782) [id number] 00:00:00 Test Item Value Reference Range Interpretation Comments TESTOSTERONE (test code = 2830) <12 NG/DL TESTOSTERONE REF RANGE (test code = (NOTE) 96231) [id number] 00:00:00 Test Item Value Reference Range Interpretation Comments PROLACTIN (test code = 2800) 5.8 NG/ML [id number] 00:00:00 Test Item Value Reference Range Interpretation Comments PROLACTIN (test code = 2800) 5.8 NG/ML FSH + LH [id number] 00:00:00 Test Item Value Reference Range Interpretation Comments FOLLICLE STIM HORMONE (test code = 8.9 MIU/ML 2700) LUTEINIZING HORMONE (test code = 6.5 MIU/ML 2776) FSH + LH [id number] 00:00:00 Test Item Value Reference Range Interpretation Comments FOLLICLE STIM HORMONE (test code = 8.9 MIU/ML 2700) LUTEINIZING HORMONE (test code = 6.5 MIU/ML 2776) VITAMIN D,1,14-[id number] 00:00:00 Test Item Value Reference Range Interpretation Comments VITAMIN D,1,25-DIHYDROXY (test 11.3 PG/ML code = 4960) VITAMIN D,1,61-[id number] 00:00:00 Test Item Value Reference Range Interpretation Comments VITAMIN D,1,25-DIHYDROXY (test 11.3 PG/ML code = 4960) VITAMIN B 12 AND FOLIC [id number] 00:00:00 Test Item Value Reference Range Interpretation Comments VITAMIN B-12 (test code = 2840) 925 PG/ML FOLIC ACID (test code = 2695) >24.0 NG/ML VITAMIN B 12 AND FOLIC [id number] 00:00:00 Test Item Value Reference Range Interpretation [...] (test code = 2821) 0.4 UIU/ML LIPID [id number] 00:00:00 Test Item Value Reference Range Interpretation Comments CHOLESTEROL (test code = 2210) 172 MG/DL TRIGLYCERIDES (test code = 2232) 136 MG/DL HDL CHOLESTEROL (test code = 2220) 44 MG/DL CALC LDL CHOL (test code = 2237) 101 MG/DL RISK RATIO LDL/HDL (test code = 2.29 RATIO 2238) LIPID [id number] 00:00:00 Test Item Value Reference Range Interpretation Comments CHOLESTEROL (test code = 2210) 172 MG/DL TRIGLYCERIDES (test code = 2232) 136 MG/DL HDL CHOLESTEROL (test code = 2220) 44 MG/DL CALC LDL CHOL (test code = 2237) 101 MG/DL RISK RATIO LDL/HDL (test code = 2.29 RATIO 2238) [id number] 00:00:00 Test Item Value Reference Range Interpretation Comments TESTOSTERONE (test code = 2830) <12 NG/DL TESTOSTERONE REF RANGE (test code = (NOTE) 39431) [id number] 00:00:00 Test Item Value Reference Range Interpretation Comments TESTOSTERONE (test code = 2830) <12 NG/DL TESTOSTERONE REF RANGE (test code = (NOTE) 92211) [id number] 00:00:00 Test Item Value Reference Range Interpretation Comments PROLACTIN (test code = 2800) 5.8 NG/ML [id number] 00:00:00 Test Item Value Reference Range Interpretation Comments PROLACTIN (test code = 2800) 5.8 NG/ML FSH + LH [id number] 00:00:00 Test Item Value Reference Range Interpretation Comments FOLLICLE STIM HORMONE (test code = 8.9 MIU/ML 2700) LUTEINIZING HORMONE (test code = 6.5 MIU/ML 2776) FSH + LH [id number] 00:00:00 Test Item Value Reference Range Interpretation Comments FOLLICLE STIM HORMONE (test code = 8.9 MIU/ML 2700) LUTEINIZING HORMONE (test code = 6.5 MIU/ML 2776) VITAMIN D,1,61-[id number] 00:00:00 Test Item Value Reference Range Interpretation Comments VITAMIN D,1,25-DIHYDROXY (test 11.3 PG/ML code = 4960) VITAMIN B 12 AND FOLIC [id number] 00:00:00 Test Item Value Reference Range Interpretation [...] (test code = 2821) 0.4 UIU/ML VITAMIN D,1,77-[id number] 00:00:00 Test Item Value Reference Range Interpretation Comments VITAMIN D,1,25-DIHYDROXY (test 11.3 PG/ML code = 4960) VITAMIN D,1,67-[id number] 00:00:00 Test Item Value Reference Range Interpretation Comments VITAMIN D,1,25-DIHYDROXY (test 11.3 PG/ML code = 4960) VITAMIN B 12 AND FOLIC [id number] 00:00:00 Test Item Value Reference Range Interpretation Comments VITAMIN B-12 (test code = 2840) 925 PG/ML FOLIC ACID (test code = 2695) >24.0 NG/ML VITAMIN B 12 AND FOLIC [id number] 00:00:00 Test Item Value Reference Range Interpretation [...] (test code = 2821) 0.4 UIU/ML LIPID [id number] 00:00:00 Test Item Value Reference Range Interpretation Comments CHOLESTEROL (test code = 2210) 172 MG/DL TRIGLYCERIDES (test code = 2232) 136 MG/DL HDL CHOLESTEROL (test code = 2220) 44 MG/DL CALC LDL CHOL (test code = 2237) 101 MG/DL RISK RATIO LDL/HDL (test code = 2.29 RATIO 2238) LIPID [id number] 00:00:00 Test Item Value Reference Range Interpretation Comments CHOLESTEROL (test code = 2210) 172 MG/DL TRIGLYCERIDES (test code = 2232) 136 MG/DL HDL CHOLESTEROL (test code = 2220) 44 MG/DL CALC LDL CHOL (test code = 2237) 101 MG/DL RISK RATIO LDL/HDL (test code = 2.29 RATIO 2238) [id number] 00:00:00 Test Item Value Reference Range Interpretation Comments TESTOSTERONE (test code = 2830) <12 NG/DL TESTOSTERONE REF RANGE (test code = (NOTE) 54884) [id number] 00:00:00 Test Item Value Reference Range Interpretation Comments TESTOSTERONE (test code = 2830) <12 NG/DL TESTOSTERONE REF RANGE (test code = (NOTE) 30909) [id number] 00:00:00 Test Item Value Reference Range Interpretation Comments PROLACTIN (test code = 2800) 5.8 NG/ML [id number] 00:00:00 Test Item Value Reference Range Interpretation Comments PROLACTIN (test code = 2800) 5.8 NG/ML FSH + LH [id number] 00:00:00 Test Item Value Reference Range Interpretation Comments FOLLICLE STIM HORMONE (test code = 8.9 MIU/ML 2700) LUTEINIZING HORMONE (test code = 6.5 MIU/ML 2776) FSH + LH [id number] 00:00:00 Test Item Value Reference Range Interpretation Comments FOLLICLE STIM HORMONE (test code = 8.9 MIU/ML 2700) LUTEINIZING HORMONE (test code = 6.5 MIU/ML 2776) LIPID [id number] 00:00:00 Test Item Value Reference Range Interpretation Comments CHOLESTEROL (test code = 2210) 172 MG/DL TRIGLYCERIDES (test code = 2232) 136 MG/DL HDL CHOLESTEROL (test code = 2220) 44 MG/DL CALC LDL CHOL (test code = 2237) 101 MG/DL RISK RATIO LDL/HDL (test code = 2.29 RATIO 2238) [id number] 00:00:00 Test Item Value Reference Range Interpretation Comments TESTOSTERONE (test code = 2830) <12 NG/DL TESTOSTERONE REF RANGE (test code = (NOTE) 21875) [id number] 00:00:00 Test Item Value Reference Range Interpretation Comments PROLACTIN (test code = 2800) 5.8 NG/ML FSH + LH [id number] 00:00:00 Test Item Value Reference Range Interpretation Comments FOLLICLE STIM HORMONE (test code = 8.9 MIU/ML 2700) LUTEINIZING HORMONE (test code = 6.5 MIU/ML 2776) VITAMIN D,1,90-[id number] 00:00:00 Test Item Value Reference Range Interpretation Comments VITAMIN D,1,25-DIHYDROXY (test 11.3 PG/ML code = 4960) VITAMIN D,1,15-[id number] 00:00:00 Test Item Value Reference Range Interpretation Comments VITAMIN D,1,25-DIHYDROXY (test 11.3 PG/ML code = 4960) VITAMIN B 12 AND FOLIC [id number] 00:00:00 Test Item Value Reference Range Interpretation Comments VITAMIN B-12 (test code = 2840) 925 PG/ML FOLIC ACID (test code = 2695) >24.0 NG/ML VITAMIN B 12 AND FOLIC [id number] 00:00:00 Test Item Value Reference Range Interpretation Comments VITAMIN B-12 (test code = 2840) 925 PG/ML FOLIC ACID (test code = 2695) >24.0 NG/ML THYROID II PROFILE (T3U, T4, T7, TSH)2016-03-22 00:00:00 Test Item Value Reference Range Interpretation Comments T3 UPTAKE (test code = 2817) 31.0 % T4 (THYROXINE) (test code = 2819) 7.4 UG/DL CALCULATED T7 (FTI) (test code = 2.29 7820) TSH (test code = 2821) 0.4 UIU/ML THYROID II PROFILE (T3U, T4, T7, TSH)2016-03-22 00:00:00 Test Item Value Reference Range Interpretation Comments T3 UPTAKE (test code = 2817) 31.0 % T4 (THYROXINE) (test code = 2819) 7.4 UG/DL CALCULATED T7 (FTI) (test code = 2.29 2820) TSH (test code = 2821) 0.4 UIU/ML LIPID [id number] 00:00:00 Test Item Value Reference Range Interpretation Comments CHOLESTEROL (test code = 2210) 172 MG/DL TRIGLYCERIDES (test code = 2232) 136 MG/DL HDL CHOLESTEROL (test code = 2220) 44 MG/DL CALC LDL CHOL (test code = 2237) 101 MG/DL RISK RATIO LDL/HDL (test code = 2.29 RATIO 2238) LIPID [id number] 00:00:00 Test Item Value Reference Range Interpretation Comments CHOLESTEROL (test code = 2210) 172 MG/DL TRIGLYCERIDES (test code = 2232) 136 MG/DL HDL CHOLESTEROL (test code = 2220) 44 MG/DL CALC LDL CHOL (test code = 2237) 101 MG/DL RISK RATIO LDL/HDL (test code = 2.29 RATIO 2238) [id number] 00:00:00 Test Item Value Reference Range Interpretation Comments TESTOSTERONE (test code = 2830) <12 NG/DL TESTOSTERONE REF RANGE (test code = (NOTE) 01275) [id number] 00:00:00 Test Item Value Reference Range Interpretation Comments TESTOSTERONE (test code = 2830) <12 NG/DL TESTOSTERONE REF RANGE (test code = (NOTE) 12070) [id number] 00:00:00 Test Item Value Reference Range Interpretation Comments PROLACTIN (test code = 2800) 5.8 NG/ML [id number] 00:00:00 Test Item Value Reference Range Interpretation Comments PROLACTIN (test code = 2800) 5.8 NG/ML FSH + LH [id number] 00:00:00 Test Item Value Reference Range Interpretation Comments FOLLICLE STIM HORMONE (test code = 8.9 MIU/ML 2700) LUTEINIZING HORMONE (test code = 6.5 MIU/ML 2776) FSH + LH [id number] 00:00:00 Test Item Value Reference Range Interpretation Comments FOLLICLE STIM HORMONE (test code = 8.9 MIU/ML 2700) LUTEINIZING HORMONE (test code = 6.5 MIU/ML 2776) VITAMIN D,1,28-[id number] 00:00:00 Test Item Value Reference Range Interpretation Comments VITAMIN D,1,25-DIHYDROXY (test 11.3 PG/ML code = 4960) VITAMIN D,1,11-[id number] 00:00:00 Test Item Value Reference Range Interpretation Comments VITAMIN D,1,25-DIHYDROXY (test 11.3 PG/ML code = 4960) VITAMIN B 12 AND FOLIC [id number] 00:00:00 Test Item Value Reference Range Interpretation Comments VITAMIN B-12 (test code = 2840) 925 PG/ML FOLIC ACID (test code = 2695) >24.0 NG/ML VITAMIN B 12 AND FOLIC [id number] 00:00:00 Test Item Value Reference Range Interpretation [...] (test code = 2821) 0.4 UIU/ML LIPID [id number] 00:00:00 Test Item Value Reference Range Interpretation Comments CHOLESTEROL (test code = 2210) 172 MG/DL TRIGLYCERIDES (test code = 2232) 136 MG/DL HDL CHOLESTEROL (test code = 2220) 44 MG/DL CALC LDL CHOL (test code = 2237) 101 MG/DL RISK RATIO LDL/HDL (test code = 2.29 RATIO 2238) LIPID [id number] 00:00:00 Test Item Value Reference Range Interpretation Comments CHOLESTEROL (test code = 2210) 172 MG/DL TRIGLYCERIDES (test code = 2232) 136 MG/DL HDL CHOLESTEROL (test code = 2220) 44 MG/DL CALC LDL CHOL (test code = 2237) 101 MG/DL RISK RATIO LDL/HDL (test code = 2.29 RATIO 2238) [id number] 00:00:00 Test Item Value Reference Range Interpretation Comments TESTOSTERONE (test code = 2830) <12 NG/DL TESTOSTERONE REF RANGE (test code = (NOTE) 10243) [id number] 00:00:00 Test Item Value Reference Range Interpretation Comments TESTOSTERONE (test code = 2830) <12 NG/DL TESTOSTERONE REF RANGE (test code = (NOTE) 34733) [id number] 00:00:00 Test Item Value Reference Range Interpretation Comments PROLACTIN (test code = 2800) 5.8 NG/ML [id number] 00:00:00 Test Item Value Reference Range Interpretation Comments PROLACTIN (test code = 2800) 5.8 NG/ML FSH + LH [id number] 00:00:00 Test Item Value Reference Range Interpretation Comments FOLLICLE STIM HORMONE (test code = 8.9 MIU/ML 2700) LUTEINIZING HORMONE (test code = 6.5 MIU/ML 2776) FSH + LH [id number] 00:00:00 Test Item Value Reference Range Interpretation Comments FOLLICLE STIM HORMONE (test code = 8.9 MIU/ML 2700) LUTEINIZING HORMONE (test code = 6.5 MIU/ML 2776) SEDIMENTATION [id number] 00:00:00 Test Item Value Reference Range Interpretation Comments SEDIMENTATION RATE (test code = 35 MM/HOUR 1017) SEDIMENTATION [id number] 00:00:00 Test Item Value Reference Range Interpretation Comments SEDIMENTATION RATE (test code = 35 MM/HOUR 1017) CBC W/AUTO [id number] 00:00:00 Test Item Value Reference Range Interpretation [...] code = 1015) 246 K/UL CBC W/AUTO [id number] 00:00:00 Test Item Value Reference Range Interpretation [...] code = 1015) 246 K/UL CBC W/AUTO [id number] 00:00:00 Test Item Value Reference Range Interpretation [...] (test code = 1015) 246 K/UL HEMOGLOBIN [id number] 00:00:00 Test Item Value Reference Range Interpretation Comments HEMOGLOBIN A1c (test code = 59461) 6.2 % HEMOGLOBIN [id number] 00:00:00 Test Item Value Reference Range Interpretation Comments HEMOGLOBIN A1c (test code = 66979) 6.2 % HEMOGLOBIN [id number] 00:00:00 Test Item Value Reference Range Interpretation Comments HEMOGLOBIN A1c (test code = 38273) 6.2 % SEDIMENTATION [id number] 00:00:00 Test Item Value Reference Range Interpretation Comments SEDIMENTATION RATE (test code = 35 MM/HOUR 1017) SEDIMENTATION [id number] 00:00:00 Test Item Value Reference Range Interpretation Comments SEDIMENTATION RATE (test code = 35 MM/HOUR 1017) CBC W/AUTO [id number] 00:00:00 Test Item Value Reference Range Interpretation [...] code = 1015) 246 K/UL CBC W/AUTO [id number] 00:00:00 Test Item Value Reference Range Interpretation [...] code = 1015) 246 K/UL CBC W/AUTO [id number] 00:00:00 Test Item Value Reference Range Interpretation [...] (test code = 1015) 246 K/UL HEMOGLOBIN [id number] 00:00:00 Test Item Value Reference Range Interpretation Comments HEMOGLOBIN A1c (test code = 21810) 6.2 % HEMOGLOBIN [id number] 00:00:00 Test Item Value Reference Range Interpretation Comments HEMOGLOBIN A1c (test code = 34446) 6.2 % HEMOGLOBIN [id number] 00:00:00 Test Item Value Reference Range Interpretation Comments HEMOGLOBIN A1c (test code = 49816) 6.2 % SEDIMENTATION [id number] 00:00:00 Test Item Value Reference Range Interpretation Comments SEDIMENTATION RATE (test code = 35 MM/HOUR 1017) SEDIMENTATION [id number] 00:00:00 Test Item Value Reference Range Interpretation Comments SEDIMENTATION RATE (test code = 35 MM/HOUR 1017) CBC W/AUTO [id number] 00:00:00 Test Item Value Reference Range Interpretation [...] code = 1015) 246 K/UL CBC W/AUTO [id number] 00:00:00 Test Item Value Reference Range Interpretation [...] code = 1015) 246 K/UL CBC W/AUTO [id number] 00:00:00 Test Item Value Reference Range Interpretation [...] (test code = 1015) 246 K/UL HEMOGLOBIN [id number] 00:00:00 Test Item Value Reference Range Interpretation Comments HEMOGLOBIN A1c (test code = 95577) 6.2 % HEMOGLOBIN [id number] 00:00:00 Test Item Value Reference Range Interpretation Comments HEMOGLOBIN A1c (test code = 39390) 6.2 % HEMOGLOBIN [id number] 00:00:00 Test Item Value Reference Range Interpretation Comments HEMOGLOBIN A1c (test code = 70411) 6.2 % SEDIMENTATION [id number] 00:00:00 Test Item Value Reference Range Interpretation Comments SEDIMENTATION RATE (test code = 35 MM/HOUR 1017) SEDIMENTATION [id number] 00:00:00 Test Item Value Reference Range Interpretation Comments SEDIMENTATION RATE (test code = 35 MM/HOUR 1017) CBC W/AUTO [id number] 00:00:00 Test Item Value Reference Range Interpretation [...] code = 1015) 246 K/UL CBC W/AUTO [id number] 00:00:00 Test Item Value Reference Range Interpretation [...] code = 1015) 246 K/UL CBC W/AUTO [id number] 00:00:00 Test Item Value Reference Range Interpretation [...] (test code = 1015) 246 K/UL HEMOGLOBIN [id number] 00:00:00 Test Item Value Reference Range Interpretation Comments HEMOGLOBIN A1c (test code = 99591) 6.2 % HEMOGLOBIN [id number] 00:00:00 Test Item Value Reference Range Interpretation Comments HEMOGLOBIN A1c (test code = 89743) 6.2 % HEMOGLOBIN [id number] 00:00:00 Test Item Value Reference Range Interpretation Comments HEMOGLOBIN A1c (test code = 11544) 6.2 % SEDIMENTATION [id number] 00:00:00 Test Item Value Reference Range Interpretation Comments SEDIMENTATION RATE (test code = 35 MM/HOUR 1017) SEDIMENTATION [id number] 00:00:00 Test Item Value Reference Range Interpretation Comments SEDIMENTATION RATE (test code = 35 MM/HOUR 1017) CBC W/AUTO [id number] 00:00:00 Test Item Value Reference Range Interpretation [...] code = 1015) 246 K/UL CBC W/AUTO [id number] 00:00:00 Test Item Value Reference Range Interpretation [...] code = 1015) 246 K/UL CBC W/AUTO [id number] 00:00:00 Test Item Value Reference Range Interpretation [...] (test code = 1015) 246 K/UL HEMOGLOBIN [id number] 00:00:00 Test Item Value Reference Range Interpretation Comments HEMOGLOBIN A1c (test code = 33566) 6.2 % HEMOGLOBIN [id number] 00:00:00 Test Item Value Reference Range Interpretation Comments HEMOGLOBIN A1c (test code = 42104) 6.2 % HEMOGLOBIN [id number] 00:00:00 Test Item Value Reference Range Interpretation Comments HEMOGLOBIN A1c (test code = 71331) 6.2 % SEDIMENTATION [id number] 00:00:00 Test Item Value Reference Range Interpretation Comments SEDIMENTATION RATE (test code = 35 MM/HOUR 1017) SEDIMENTATION [id number] 00:00:00 Test Item Value Reference Range Interpretation Comments SEDIMENTATION RATE (test code = 35 MM/HOUR 1017) CBC W/AUTO [id number] 00:00:00 Test Item Value Reference Range Interpretation [...] code = 1015) 246 K/UL CBC W/AUTO [id number] 00:00:00 Test Item Value Reference Range Interpretation [...] code = 1015) 246 K/UL CBC W/AUTO [id number] 00:00:00 Test Item Value Reference Range Interpretation [...] (test code = 1015) 246 K/UL HEMOGLOBIN [id number] 00:00:00 Test Item Value Reference Range Interpretation Comments HEMOGLOBIN A1c (test code = 65333) 6.2 % HEMOGLOBIN [id number] 00:00:00 Test Item Value Reference Range Interpretation Comments HEMOGLOBIN A1c (test code = 28918) 6.2 % HEMOGLOBIN [id number] 00:00:00 Test Item Value Reference Range Interpretation Comments HEMOGLOBIN A1c (test code = 31143) 6.2 % SEDIMENTATION [id number] 00:00:00 Test Item Value Reference Range Interpretation Comments SEDIMENTATION RATE (test code = 35 MM/HOUR 1017) SEDIMENTATION [id number] 00:00:00 Test Item Value Reference Range Interpretation Comments SEDIMENTATION RATE (test code = 35 MM/HOUR 1017) CBC W/AUTO [id number] 00:00:00 Test Item Value Reference Range Interpretation [...] code = 1015) 246 K/UL CBC W/AUTO [id number] 00:00:00 Test Item Value Reference Range Interpretation [...] code = 1015) 246 K/UL CBC W/AUTO [id number] 00:00:00 Test Item Value Reference Range Interpretation [...] (test code = 1015) 246 K/UL HEMOGLOBIN [id number] 00:00:00 Test Item Value Reference Range Interpretation Comments HEMOGLOBIN A1c (test code = 22923) 6.2 % HEMOGLOBIN [id number] 00:00:00 Test Item Value Reference Range Interpretation Comments HEMOGLOBIN A1c (test code = 84228) 6.2 % HEMOGLOBIN [id number] 00:00:00 Test Item Value Reference Range Interpretation Comments HEMOGLOBIN A1c (test code = 64587) 6.2 % SEDIMENTATION [id number] 00:00:00 Test Item Value Reference Range Interpretation Comments SEDIMENTATION RATE (test code = 35 MM/HOUR 1017) SEDIMENTATION [id number] 00:00:00 Test Item Value Reference Range Interpretation Comments SEDIMENTATION RATE (test code = 35 MM/HOUR 1017) SEDIMENTATION [id number] 00:00:00 Test Item Value Reference Range Interpretation Comments SEDIMENTATION RATE (test code = 35 MM/HOUR 1017) CBC W/AUTO [id number] 00:00:00 Test Item Value Reference Range Interpretation [...] code = 1015) 246 K/UL CBC W/AUTO [id number] 00:00:00 Test Item Value Reference Range Interpretation [...] code = 1015) 246 K/UL CBC W/AUTO [id number] 00:00:00 Test Item Value Reference Range Interpretation [...] code = 1015) 246 K/UL CBC W/AUTO [id number] 00:00:00 Test Item Value Reference Range Interpretation [...] (test code = 1015) 246 K/UL HEMOGLOBIN [id number] 00:00:00 Test Item Value Reference Range Interpretation Comments HEMOGLOBIN A1c (test code = 74560) 6.2 % HEMOGLOBIN [id number] 00:00:00 Test Item Value Reference Range Interpretation Comments HEMOGLOBIN A1c (test code = 19235) 6.2 % HEMOGLOBIN [id number] 00:00:00 Test Item Value Reference Range Interpretation Comments HEMOGLOBIN A1c (test code = 89920) 6.2 % CBC W/AUTO [id number] 00:00:00 Test Item Value Reference Range Interpretation [...] (test code = 1015) 246 K/UL HEMOGLOBIN [id number] 00:00:00 Test Item Value Reference Range Interpretation Comments HEMOGLOBIN A1c (test code = 94442) 6.2 % HEMOGLOBIN [id number] 00:00:00 Test Item Value Reference Range Interpretation Comments HEMOGLOBIN A1c (test code = 12737) 6.2 % SEDIMENTATION [id number] 00:00:00 Test Item Value Reference Range Interpretation Comments SEDIMENTATION RATE (test code = 35 MM/HOUR 1017) SEDIMENTATION [id number] 00:00:00 Test Item Value Reference Range Interpretation Comments SEDIMENTATION RATE (test code = 35 MM/HOUR 1017) CBC W/AUTO [id number] 00:00:00 Test Item Value Reference Range Interpretation [...] code = 1015) 246 K/UL CBC W/AUTO [id number] 00:00:00 Test Item Value Reference Range Interpretation [...] code = 1015) 246 K/UL CBC W/AUTO [id number] 00:00:00 Test Item Value Reference Range Interpretation [...] (test code = 1015) 246 K/UL HEMOGLOBIN [id number] 00:00:00 Test Item Value Reference Range Interpretation Comments HEMOGLOBIN A1c (test code = 77010) 6.2 % HEMOGLOBIN [id number] 00:00:00 Test Item Value Reference Range Interpretation Comments HEMOGLOBIN A1c (test code = 66348) 6.2 % HEMOGLOBIN [id number] 00:00:00 Test Item Value Reference Range Interpretation Comments HEMOGLOBIN A1c (test code = 58797) 6.2 % SEDIMENTATION [id number] 00:00:00 Test Item Value Reference Range Interpretation Comments SEDIMENTATION RATE (test code = 35 MM/HOUR 1017) SEDIMENTATION [id number] 00:00:00 Test Item Value Reference Range Interpretation Comments SEDIMENTATION RATE (test code = 35 MM/HOUR 1017) CBC W/AUTO [id number] 00:00:00 Test Item Value Reference Range Interpretation [...] code = 1015) 246 K/UL CBC W/AUTO [id number] 00:00:00 Test Item Value Reference Range Interpretation [...] code = 1015) 246 K/UL CBC W/AUTO [id number] 00:00:00 Test Item Value Reference Range Interpretation [...] (test code = 1015) 246 K/UL HEMOGLOBIN [id number] 00:00:00 Test Item Value Reference Range Interpretation Comments HEMOGLOBIN A1c (test code = 20606) 6.2 % HEMOGLOBIN [id number] 00:00:00 Test Item Value Reference Range Interpretation Comments HEMOGLOBIN A1c (test code = 08178) 6.2 % HEMOGLOBIN [id number] 00:00:00 Test Item Value Reference Range Interpretation Comments HEMOGLOBIN A1c (test code = 58113) 6.2 % COMPREHENSIVE METABOLIC [id number] 00:00:00 Test Item Value Reference Range Interpretation Comments GLUCOSE (test code = 2217) 100 MG/DL BUN (test code = 2208) 10 MG/DL CREATININE (test code = 2214) 0.61 MG/DL eGFR AMER. (test code 134 ML/MIN/1.73 = 78767) eGFR NON- AMER. (test 116 ML/MIN/1.73 code = 07808) CALCULATED BUN/CREAT (test 16 RATIO code = [...] code = 2219) 16 U/L COMPREHENSIVE METABOLIC [id number] 00:00:00 Test Item Value Reference Range Interpretation Comments GLUCOSE (test code = 2217) 100 MG/DL BUN (test code = 2208) 10 MG/DL CREATININE (test code = 2214) 0.61 MG/DL eGFR AMER. (test code 134 ML/MIN/1.73 = 88401) eGFR NON- AMER. (test 116 ML/MIN/1.73 code = 18506) CALCULATED BUN/CREAT (test 16 RATIO code = [...] (test code = 2219) 16 U/L LIPID [id number] 00:00:00 Test Item Value Reference Range Interpretation Comments CHOLESTEROL (test code = 2210) 166 MG/DL TRIGLYCERIDES (test code = 2232) 72 MG/DL HDL CHOLESTEROL (test code = 2220) 47 MG/DL CALCULATED LDL CHOL (test code = 105 MG/DL 2237) RISK RATIO LDL/HDL (test code = 2.23 RATIO 2238) LIPID [id number] 00:00:00 Test Item Value Reference Range Interpretation Comments CHOLESTEROL (test code = 2210) 166 MG/DL TRIGLYCERIDES (test code = 2232) 72 MG/DL HDL CHOLESTEROL (test code = 2220) 47 MG/DL CALCULATED LDL CHOL (test code = 105 MG/DL 2236) RISK RATIO LDL/HDL (test code = 2.23 RATIO 2238) [id number] 00:00:00 Test Item Value Reference Range Interpretation Comments TSH (test code = 2821) 1.2 UIU/ML [id number] 00:00:00 Test Item Value Reference Range Interpretation Comments TSH (test code = 2821) 1.2 UIU/ML [id number] 00:00:00 Test Item Value Reference Range Interpretation Comments TSH (test code = 2821) 1.2 UIU/ML COMPREHENSIVE METABOLIC [id number] 00:00:00 Test Item Value Reference Range Interpretation Comments GLUCOSE (test code = 2217) 100 MG/DL BUN (test code = 2208) 10 MG/DL CREATININE (test code = 2214) 0.61 MG/DL eGFR AMER. (test code 134 ML/MIN/1.73 = 94780) eGFR NON- AMER. (test 116 ML/MIN/1.73 code = 72534) CALCULATED BUN/CREAT (test 16 RATIO code = [...] code = 2219) 16 U/L COMPREHENSIVE METABOLIC [id number] 00:00:00 Test Item Value Reference Range Interpretation Comments GLUCOSE (test code = 2217) 100 MG/DL BUN (test code = 2208) 10 MG/DL CREATININE (test code = 2214) 0.61 MG/DL eGFR AMER. (test code 134 ML/MIN/1.73 = 28648) eGFR NON- AMER. (test 116 ML/MIN/1.73 code = 18951) CALCULATED BUN/CREAT (test 16 RATIO code = [...] (test code = 2219) 16 U/L LIPID [id number] 00:00:00 Test Item Value Reference Range Interpretation Comments CHOLESTEROL (test code = 2210) 166 MG/DL TRIGLYCERIDES (test code = 2232) 72 MG/DL HDL CHOLESTEROL (test code = 2220) 47 MG/DL CALCULATED LDL CHOL (test code = 105 MG/DL 2236) RISK RATIO LDL/HDL (test code = 2.23 RATIO 2238) LIPID [id number] 00:00:00 Test Item Value Reference Range Interpretation Comments CHOLESTEROL (test code = 2210) 166 MG/DL TRIGLYCERIDES (test code = 2232) 72 MG/DL HDL CHOLESTEROL (test code = 2220) 47 MG/DL CALCULATED LDL CHOL (test code = 105 MG/DL 2236) RISK RATIO LDL/HDL (test code = 2.23 RATIO 2238) [id number] 00:00:00 Test Item Value Reference Range Interpretation Comments TSH (test code = 2821) 1.2 UIU/ML [id number] 00:00:00 Test Item Value Reference Range Interpretation Comments TSH (test code = 2821) 1.2 UIU/ML [id number] 00:00:00 Test Item Value Reference Range Interpretation Comments TSH (test code = 2821) 1.2 UIU/ML COMPREHENSIVE METABOLIC [id number] 00:00:00 Test Item Value Reference Range Interpretation Comments GLUCOSE (test code = 2217) 100 MG/DL BUN (test code = 2208) 10 MG/DL CREATININE (test code = 2214) 0.61 MG/DL eGFR AMER. (test code 134 ML/MIN/1.73 = 13753) eGFR NON- AMER. (test 116 ML/MIN/1.73 code = 64347) CALCULATED BUN/CREAT (test 16 RATIO code = [...] code = 2219) 16 U/L COMPREHENSIVE METABOLIC [id number] 00:00:00 Test Item Value Reference Range Interpretation Comments GLUCOSE (test code = 2217) 100 MG/DL BUN (test code = 2208) 10 MG/DL CREATININE (test code = 2214) 0.61 MG/DL eGFR AMER. (test code 134 ML/MIN/1.73 = 89003) eGFR NON- AMER. (test 116 ML/MIN/1.73 code = 77026) CALCULATED BUN/CREAT (test 16 RATIO code = [...] (test code = 2219) 16 U/L LIPID [id number] 00:00:00 Test Item Value Reference Range Interpretation Comments CHOLESTEROL (test code = 2210) 166 MG/DL TRIGLYCERIDES (test code = 2232) 72 MG/DL HDL CHOLESTEROL (test code = 2220) 47 MG/DL CALCULATED LDL CHOL (test code = 105 MG/DL 2236) RISK RATIO LDL/HDL (test code = 2.23 RATIO 2238) LIPID [id number] 00:00:00 Test Item Value Reference Range Interpretation Comments CHOLESTEROL (test code = 2210) 166 MG/DL TRIGLYCERIDES (test code = 2232) 72 MG/DL HDL CHOLESTEROL (test code = 2220) 47 MG/DL CALCULATED LDL CHOL (test code = 105 MG/DL 2236) RISK RATIO LDL/HDL (test code = 2.23 RATIO 2238) [id number] 00:00:00 Test Item Value Reference Range Interpretation Comments TSH (test code = 2821) 1.2 UIU/ML [id number] 00:00:00 Test Item Value Reference Range Interpretation Comments TSH (test code = 2821) 1.2 UIU/ML [id number] 00:00:00 Test Item Value Reference Range Interpretation Comments TSH (test code = 2821) 1.2 UIU/ML COMPREHENSIVE METABOLIC [id number] 00:00:00 Test Item Value Reference Range Interpretation Comments GLUCOSE (test code = 2217) 100 MG/DL BUN (test code = 2208) 10 MG/DL CREATININE (test code = 2214) 0.61 MG/DL eGFR AMER. (test code 134 ML/MIN/1.73 = 40106) eGFR NON- AMER. (test 116 ML/MIN/1.73 code = 72999) CALCULATED BUN/CREAT (test 16 RATIO code = [...] code = 2219) 16 U/L COMPREHENSIVE METABOLIC [id number] 00:00:00 Test Item Value Reference Range Interpretation Comments GLUCOSE (test code = 2217) 100 MG/DL BUN (test code = 2208) 10 MG/DL CREATININE (test code = 2214) 0.61 MG/DL eGFR AMER. (test code 134 ML/MIN/1.73 = 45301) eGFR NON- AMER. (test 116 ML/MIN/1.73 code = 28938) CALCULATED BUN/CREAT (test 16 RATIO code = [...] (test code = 2219) 16 U/L LIPID [id number] 00:00:00 Test Item Value Reference Range Interpretation Comments CHOLESTEROL (test code = 2210) 166 MG/DL TRIGLYCERIDES (test code = 2232) 72 MG/DL HDL CHOLESTEROL (test code = 2220) 47 MG/DL CALCULATED LDL CHOL (test code = 105 MG/DL 7) RISK RATIO LDL/HDL (test code = 2.23 RATIO 2238) LIPID [id number] 00:00:00 Test Item Value Reference Range Interpretation Comments CHOLESTEROL (test code = 2210) 166 MG/DL TRIGLYCERIDES (test code = 2232) 72 MG/DL HDL CHOLESTEROL (test code = 2220) 47 MG/DL CALCULATED LDL CHOL (test code = 105 MG/DL 2237) RISK RATIO LDL/HDL (test code = 2.23 RATIO 2238) [id number] 00:00:00 Test Item Value Reference Range Interpretation Comments TSH (test code = 2821) 1.2 UIU/ML [id number] 00:00:00 Test Item Value Reference Range Interpretation Comments TSH (test code = 2821) 1.2 UIU/ML [id number] 00:00:00 Test Item Value Reference Range Interpretation Comments TSH (test code = 2821) 1.2 UIU/ML COMPREHENSIVE METABOLIC [id number] 00:00:00 Test Item Value Reference Range Interpretation Comments GLUCOSE (test code = 2217) 100 MG/DL BUN (test code = 2208) 10 MG/DL CREATININE (test code = 2214) 0.61 MG/DL eGFR AMER. (test code 134 ML/MIN/1.73 = 19811) eGFR NON- AMER. (test 116 ML/MIN/1.73 code = 51197) CALCULATED BUN/CREAT (test 16 RATIO code = [...] code = 2219) 16 U/L COMPREHENSIVE METABOLIC [id number] 00:00:00 Test Item Value Reference Range Interpretation Comments GLUCOSE (test code = 2217) 100 MG/DL BUN (test code = 2208) 10 MG/DL CREATININE (test code = 2214) 0.61 MG/DL eGFR AMER. (test code 134 ML/MIN/1.73 = 70466) eGFR NON- AMER. (test 116 ML/MIN/1.73 code = 45258) CALCULATED BUN/CREAT (test 16 RATIO code = [...] (test code = 2219) 16 U/L LIPID [id number] 00:00:00 Test Item Value Reference Range Interpretation Comments CHOLESTEROL (test code = 2210) 166 MG/DL TRIGLYCERIDES (test code = 2232) 72 MG/DL HDL CHOLESTEROL (test code = 2220) 47 MG/DL CALCULATED LDL CHOL (test code = 105 MG/DL 2237) RISK RATIO LDL/HDL (test code = 2.23 RATIO 2238) LIPID [id number] 00:00:00 Test Item Value Reference Range Interpretation Comments CHOLESTEROL (test code = 2210) 166 MG/DL TRIGLYCERIDES (test code = 2232) 72 MG/DL HDL CHOLESTEROL (test code = 2220) 47 MG/DL CALCULATED LDL CHOL (test code = 105 MG/DL 2236) RISK RATIO LDL/HDL (test code = 2.23 RATIO 2238) [id number] 00:00:00 Test Item Value Reference Range Interpretation Comments TSH (test code = 2821) 1.2 UIU/ML [id number] 00:00:00 Test Item Value Reference Range Interpretation Comments TSH (test code = 2821) 1.2 UIU/ML [id number] 00:00:00 Test Item Value Reference Range Interpretation Comments TSH (test code = 2821) 1.2 UIU/ML COMPREHENSIVE METABOLIC [id number] 00:00:00 Test Item Value Reference Range Interpretation Comments GLUCOSE (test code = 2217) 100 MG/DL BUN (test code = 2208) 10 MG/DL CREATININE (test code = 2214) 0.61 MG/DL eGFR AMER. (test code 134 ML/MIN/1.73 = 19710) eGFR NON- AMER. (test 116 ML/MIN/1.73 code = 02023) CALCULATED BUN/CREAT (test 16 RATIO code = [...] code = 2219) 16 U/L COMPREHENSIVE METABOLIC [id number] 00:00:00 Test Item Value Reference Range Interpretation Comments GLUCOSE (test code = 2217) 100 MG/DL BUN (test code = 2208) 10 MG/DL CREATININE (test code = 2214) 0.61 MG/DL eGFR AMER. (test code 134 ML/MIN/1.73 = 85270) eGFR NON- AMER. (test 116 ML/MIN/1.73 code = 08883) CALCULATED BUN/CREAT (test 16 RATIO code = [...] (test code = 2219) 16 U/L LIPID [id number] 00:00:00 Test Item Value Reference Range Interpretation Comments CHOLESTEROL (test code = 2210) 166 MG/DL TRIGLYCERIDES (test code = 2232) 72 MG/DL HDL CHOLESTEROL (test code = 2220) 47 MG/DL CALCULATED LDL CHOL (test code = 105 MG/DL 2237) RISK RATIO LDL/HDL (test code = 2.23 RATIO 2238) LIPID [id number] 00:00:00 Test Item Value Reference Range Interpretation Comments CHOLESTEROL (test code = 2210) 166 MG/DL TRIGLYCERIDES (test code = 2232) 72 MG/DL HDL CHOLESTEROL (test code = 2220) 47 MG/DL CALCULATED LDL CHOL (test code = 105 MG/DL 2237) RISK RATIO LDL/HDL (test code = 2.23 RATIO 2238) [id number] 00:00:00 Test Item Value Reference Range Interpretation Comments TSH (test code = 2821) 1.2 UIU/ML [id number] 00:00:00 Test Item Value Reference Range Interpretation Comments TSH (test code = 2821) 1.2 UIU/ML [id number] 00:00:00 Test Item Value Reference Range Interpretation Comments TSH (test code = 2821) 1.2 UIU/ML COMPREHENSIVE METABOLIC [id number] 00:00:00 Test Item Value Reference Range Interpretation Comments GLUCOSE (test code = 2217) 100 MG/DL BUN (test code = 2208) 10 MG/DL CREATININE (test code = 2214) 0.61 MG/DL eGFR AMER. (test code 134 ML/MIN/1.73 = 41665) eGFR NON- AMER. (test 116 ML/MIN/1.73 code = 66915) CALCULATED BUN/CREAT (test 16 RATIO code = [...] code = 2219) 16 U/L COMPREHENSIVE METABOLIC [id number] 00:00:00 Test Item Value Reference Range Interpretation Comments GLUCOSE (test code = 2217) 100 MG/DL BUN (test code = 2208) 10 MG/DL CREATININE (test code = 2214) 0.61 MG/DL eGFR AMER. (test code 134 ML/MIN/1.73 = 70292) eGFR NON- AMER. (test 116 ML/MIN/1.73 code = 38965) CALCULATED BUN/CREAT (test 16 RATIO code = [...] code = 2219) 16 U/L COMPREHENSIVE METABOLIC [id number] 00:00:00 Test Item Value Reference Range Interpretation Comments GLUCOSE (test code = 2217) 100 MG/DL BUN (test code = 2208) 10 MG/DL CREATININE (test code = 2214) 0.61 MG/DL eGFR AMER. (test code 134 ML/MIN/1.73 = 63390) eGFR NON- AMER. (test 116 ML/MIN/1.73 code = 34697) CALCULATED BUN/CREAT (test 16 RATIO code = [...] (test code = 2219) 16 U/L LIPID [id number] 00:00:00 Test Item Value Reference Range Interpretation Comments CHOLESTEROL (test code = 2210) 166 MG/DL TRIGLYCERIDES (test code = 2232) 72 MG/DL HDL CHOLESTEROL (test code = 2220) 47 MG/DL CALCULATED LDL CHOL (test code = 105 MG/DL 2236) RISK RATIO LDL/HDL (test code = 2.23 RATIO 2238) LIPID [id number] 00:00:00 Test Item Value Reference Range Interpretation Comments CHOLESTEROL (test code = 2210) 166 MG/DL TRIGLYCERIDES (test code = 2232) 72 MG/DL HDL CHOLESTEROL (test code = 2220) 47 MG/DL CALCULATED LDL CHOL (test code = 105 MG/DL 7) RISK RATIO LDL/HDL (test code = 2.23 RATIO 2238) [id number] 00:00:00 Test Item Value Reference Range Interpretation Comments TSH (test code = 2821) 1.2 UIU/ML [id number] 00:00:00 Test Item Value Reference Range Interpretation Comments TSH (test code = 2821) 1.2 UIU/ML [id number] 00:00:00 Test Item Value Reference Range Interpretation Comments TSH (test code = 2821) 1.2 UIU/ML LIPID [id number] 00:00:00 Test Item Value Reference Range Interpretation Comments CHOLESTEROL (test code = 2210) 166 MG/DL TRIGLYCERIDES (test code = 2232) 72 MG/DL HDL CHOLESTEROL (test code = 2220) 47 MG/DL CALCULATED LDL CHOL (test code = 105 MG/DL 7) RISK RATIO LDL/HDL (test code = 2.23 RATIO 2238) COMPREHENSIVE METABOLIC [id number] 00:00:00 Test Item Value Reference Range Interpretation Comments GLUCOSE (test code = 2217) 100 MG/DL BUN (test code = 2208) 10 MG/DL CREATININE (test code = 2214) 0.61 MG/DL eGFR AMER. (test code 134 ML/MIN/1.73 = 39646) eGFR NON- AMER. (test 116 ML/MIN/1.73 code = 37673) CALCULATED BUN/CREAT (test 16 RATIO code = [...] code = 2219) 16 U/L COMPREHENSIVE METABOLIC [id number] 00:00:00 Test Item Value Reference Range Interpretation Comments GLUCOSE (test code = 2217) 100 MG/DL BUN (test code = 2208) 10 MG/DL CREATININE (test code = 2214) 0.61 MG/DL eGFR AMER. (test code 134 ML/MIN/1.73 = 49131) eGFR NON- AMER. (test 116 ML/MIN/1.73 code = 22088) CALCULATED BUN/CREAT (test 16 RATIO code = [...] (test code = 2219) 16 U/L LIPID [id number] 00:00:00 Test Item Value Reference Range Interpretation Comments CHOLESTEROL (test code = 2210) 166 MG/DL TRIGLYCERIDES (test code = 2232) 72 MG/DL HDL CHOLESTEROL (test code = 2220) 47 MG/DL CALCULATED LDL CHOL (test code = 105 MG/DL 2237) RISK RATIO LDL/HDL (test code = 2.23 RATIO 2238) LIPID [id number] 00:00:00 Test Item Value Reference Range Interpretation Comments CHOLESTEROL (test code = 2210) 166 MG/DL TRIGLYCERIDES (test code = 2232) 72 MG/DL HDL CHOLESTEROL (test code = 2220) 47 MG/DL CALCULATED LDL CHOL (test code = 105 MG/DL 2237) RISK RATIO LDL/HDL (test code = 2.23 RATIO 2238) [id number] 00:00:00 Test Item Value Reference Range Interpretation Comments TSH (test code = 2821) 1.2 UIU/ML [id number] 00:00:00 Test Item Value Reference Range Interpretation Comments TSH (test code = 2821) 1.2 UIU/ML [id number] 00:00:00 Test Item Value Reference Range Interpretation Comments TSH (test code = 2821) 1.2 UIU/ML [id number] 00:00:00 Test Item Value Reference Range Interpretation Comments TSH (test code = 2821) 1.2 UIU/ML [id number] 00:00:00 Test Item Value Reference Range Interpretation Comments TSH (test code = 2821) 1.2 UIU/ML COMPREHENSIVE METABOLIC [id number] 00:00:00 Test Item Value Reference Range Interpretation Comments GLUCOSE (test code = 2217) 100 MG/DL BUN (test code = 2208) 10 MG/DL CREATININE (test code = 2214) 0.61 MG/DL eGFR AMER. (test code 134 ML/MIN/1.73 = 43958) eGFR NON- AMER. (test 116 ML/MIN/1.73 code = 88998) CALCULATED BUN/CREAT (test 16 RATIO code = [...] code = 2219) 16 U/L COMPREHENSIVE METABOLIC [id number] 00:00:00 Test Item Value Reference Range Interpretation Comments GLUCOSE (test code = 2217) 100 MG/DL BUN (test code = 2208) 10 MG/DL CREATININE (test code = 2214) 0.61 MG/DL eGFR AMER. (test code 134 ML/MIN/1.73 = 87954) eGFR NON- AMER. (test 116 ML/MIN/1.73 code = 14753) CALCULATED BUN/CREAT (test 16 RATIO code = [...] (test code = 2219) 16 U/L LIPID [id number] 00:00:00 Test Item Value Reference Range Interpretation Comments CHOLESTEROL (test code = 2210) 166 MG/DL TRIGLYCERIDES (test code = 2232) 72 MG/DL HDL CHOLESTEROL (test code = 2220) 47 MG/DL CALCULATED LDL CHOL (test code = 105 MG/DL 2237) RISK RATIO LDL/HDL (test code = 2.23 RATIO 2238) LIPID [id number] 00:00:00 Test Item Value Reference Range Interpretation Comments CHOLESTEROL (test code = 2210) 166 MG/DL TRIGLYCERIDES (test code = 2232) 72 MG/DL HDL CHOLESTEROL (test code = 2220) 47 MG/DL CALCULATED LDL CHOL (test code = 105 MG/DL 2236) RISK RATIO LDL/HDL (test code = 2.23 RATIO 2238) [id number] 00:00:00 Test Item Value Reference Range Interpretation Comments TSH (test code = 2821) 1.2 UIU/ML [id number] 00:00:00 Test Item Value Reference Range Interpretation Comments TSH (test code = 2821) 1.2 UIU/ML [id number] 00:00:00 Test Item Value Reference Range Interpretation Comments TSH (test code = 2821) 1.2 UIU/ML COMPREHENSIVE METABOLIC [id number] 00:00:00 Test Item Value Reference Range Interpretation Comments GLUCOSE (test code = 2217) 100 MG/DL BUN (test code = 2208) 10 MG/DL CREATININE (test code = 2214) 0.61 MG/DL eGFR AMER. (test code 134 ML/MIN/1.73 = 59305) eGFR NON- AMER. (test 116 ML/MIN/1.73 code = 05226) CALCULATED BUN/CREAT (test 16 RATIO code = [...] code = 2219) 16 U/L COMPREHENSIVE METABOLIC [id number] 00:00:00 Test Item Value Reference Range Interpretation Comments GLUCOSE (test code = 2217) 100 MG/DL BUN (test code = 2208) 10 MG/DL CREATININE (test code = 2214) 0.61 MG/DL eGFR AMER. (test code 134 ML/MIN/1.73 = 12960) eGFR NON- AMER. (test 116 ML/MIN/1.73 code = 19723) CALCULATED BUN/CREAT (test 16 RATIO code = [...] (test code = 2219) 16 U/L LIPID [id number] 00:00:00 Test Item Value Reference Range Interpretation Comments CHOLESTEROL (test code = 2210) 166 MG/DL TRIGLYCERIDES (test code = 2232) 72 MG/DL HDL CHOLESTEROL (test code = 2220) 47 MG/DL CALCULATED LDL CHOL (test code = 105 MG/DL 2237) RISK RATIO LDL/HDL (test code = 2.23 RATIO 2238) LIPID [id number] 00:00:00 Test Item Value Reference Range Interpretation Comments CHOLESTEROL (test code = 2210) 166 MG/DL TRIGLYCERIDES (test code = 2232) 72 MG/DL HDL CHOLESTEROL (test code = 2220) 47 MG/DL CALCULATED LDL CHOL (test code = 105 MG/DL 2237) RISK RATIO LDL/HDL (test code = 2.23 RATIO 2238) [id number] 00:00:00 Test Item Value Reference Range Interpretation Comments TSH (test code = 2821) 1.2 UIU/ML [id number] 00:00:00 Test Item Value Reference Range Interpretation Comments TSH (test code = 2821) 1.2 UIU/ML [id number] 00:00:00 Test Item Value Reference Range Interpretation Comments TSH (test code = 2821) 1.2 UIU/ML CBC W/AUTO [id number] 00:00:00 Test Item Value Reference Range Interpretation [...] code = 1015) 243 K/UL CBC W/AUTO [id number] 00:00:00 Test Item Value Reference Range Interpretation [...] code = 1015) 243 K/UL CBC W/AUTO [id number] 00:00:00 Test Item Value Reference Range Interpretation [...] (test code = 1015) 243 K/UL HEMOGLOBIN [id number] 00:00:00 Test Item Value Reference Range Interpretation Comments HEMOGLOBIN A1c (test code = 37146) 6.4 % HEMOGLOBIN [id number] 00:00:00 Test Item Value Reference Range Interpretation Comments HEMOGLOBIN A1c (test code = 18001) 6.4 % HEMOGLOBIN [id number] 00:00:00 Test Item Value Reference Range Interpretation Comments HEMOGLOBIN A1c (test code = 54101) 6.4 % CBC W/AUTO [id number] 00:00:00 Test Item Value Reference Range Interpretation [...] code = 1015) 243 K/UL CBC W/AUTO [id number] 00:00:00 Test Item Value Reference Range Interpretation [...] code = 1015) 243 K/UL CBC W/AUTO [id number] 00:00:00 Test Item Value Reference Range Interpretation [...] (test code = 1015) 243 K/UL HEMOGLOBIN [id number] 00:00:00 Test Item Value Reference Range Interpretation Comments HEMOGLOBIN A1c (test code = 29877) 6.4 % HEMOGLOBIN [id number] 00:00:00 Test Item Value Reference Range Interpretation Comments HEMOGLOBIN A1c (test code = 76624) 6.4 % HEMOGLOBIN [id number] 00:00:00 Test Item Value Reference Range Interpretation Comments HEMOGLOBIN A1c (test code = 15125) 6.4 % CBC W/AUTO [id number] 00:00:00 Test Item Value Reference Range Interpretation [...] code = 1015) 243 K/UL CBC W/AUTO [id number] 00:00:00 Test Item Value Reference Range Interpretation [...] code = 1015) 243 K/UL CBC W/AUTO [id number] 00:00:00 Test Item Value Reference Range Interpretation [...] (test code = 1015) 243 K/UL HEMOGLOBIN [id number] 00:00:00 Test Item Value Reference Range Interpretation Comments HEMOGLOBIN A1c (test code = 46945) 6.4 % HEMOGLOBIN [id number] 00:00:00 Test Item Value Reference Range Interpretation Comments HEMOGLOBIN A1c (test code = 26914) 6.4 % HEMOGLOBIN [id number] 00:00:00 Test Item Value Reference Range Interpretation Comments HEMOGLOBIN A1c (test code = 30212) 6.4 % CBC W/AUTO [id number] 00:00:00 Test Item Value Reference Range Interpretation [...] code = 1015) 243 K/UL CBC W/AUTO [id number] 00:00:00 Test Item Value Reference Range Interpretation [...] code = 1015) 243 K/UL CBC W/AUTO [id number] 00:00:00 Test Item Value Reference Range Interpretation [...] (test code = 1015) 243 K/UL HEMOGLOBIN [id number] 00:00:00 Test Item Value Reference Range Interpretation Comments HEMOGLOBIN A1c (test code = 19186) 6.4 % HEMOGLOBIN [id number] 00:00:00 Test Item Value Reference Range Interpretation Comments HEMOGLOBIN A1c (test code = 06484) 6.4 % HEMOGLOBIN [id number] 00:00:00 Test Item Value Reference Range Interpretation Comments HEMOGLOBIN A1c (test code = 24726) 6.4 % CBC W/AUTO [id number] 00:00:00 Test Item Value Reference Range Interpretation [...] code = 1015) 243 K/UL CBC W/AUTO [id number] 00:00:00 Test Item Value Reference Range Interpretation [...] code = 1015) 243 K/UL CBC W/AUTO [id number] 00:00:00 Test Item Value Reference Range Interpretation [...] (test code = 1015) 243 K/UL HEMOGLOBIN [id number] 00:00:00 Test Item Value Reference Range Interpretation Comments HEMOGLOBIN A1c (test code = 23593) 6.4 % HEMOGLOBIN [id number] 00:00:00 Test Item Value Reference Range Interpretation Comments HEMOGLOBIN A1c (test code = 31716) 6.4 % HEMOGLOBIN [id number] 00:00:00 Test Item Value Reference Range Interpretation Comments HEMOGLOBIN A1c (test code = 43489) 6.4 % CBC W/AUTO [id number] 00:00:00 Test Item Value Reference Range Interpretation [...] code = 1015) 243 K/UL CBC W/AUTO [id number] 00:00:00 Test Item Value Reference Range Interpretation [...] code = 1015) 243 K/UL CBC W/AUTO [id number] 00:00:00 Test Item Value Reference Range Interpretation [...] (test code = 1015) 243 K/UL HEMOGLOBIN [id number] 00:00:00 Test Item Value Reference Range Interpretation Comments HEMOGLOBIN A1c (test code = 39855) 6.4 % HEMOGLOBIN [id number] 00:00:00 Test Item Value Reference Range Interpretation Comments HEMOGLOBIN A1c (test code = 52804) 6.4 % HEMOGLOBIN [id number] 00:00:00 Test Item Value Reference Range Interpretation Comments HEMOGLOBIN A1c (test code = 96457) 6.4 % CBC W/AUTO [id number] 00:00:00 Test Item Value Reference Range Interpretation [...] code = 1015) 243 K/UL CBC W/AUTO [id number] 00:00:00 Test Item Value Reference Range Interpretation [...] code = 1015) 243 K/UL CBC W/AUTO [id number] 00:00:00 Test Item Value Reference Range Interpretation [...] (test code = 1015) 243 K/UL HEMOGLOBIN [id number] 00:00:00 Test Item Value Reference Range Interpretation Comments HEMOGLOBIN A1c (test code = 92132) 6.4 % HEMOGLOBIN [id number] 00:00:00 Test Item Value Reference Range Interpretation Comments HEMOGLOBIN A1c (test code = 81318) 6.4 % HEMOGLOBIN [id number] 00:00:00 Test Item Value Reference Range Interpretation Comments HEMOGLOBIN A1c (test code = 26032) 6.4 % CBC W/AUTO [id number] 00:00:00 Test Item Value Reference Range Interpretation [...] code = 1015) 243 K/UL CBC W/AUTO [id number] 00:00:00 Test Item Value Reference Range Interpretation [...] (test code = 1015) 243 K/UL HEMOGLOBIN [id number] 00:00:00 Test Item Value Reference Range Interpretation Comments HEMOGLOBIN A1c (test code = 27540) 6.4 % HEMOGLOBIN [id number] 00:00:00 Test Item Value Reference Range Interpretation Comments HEMOGLOBIN A1c (test code = 14376) 6.4 % CBC W/AUTO [id number] 00:00:00 Test Item Value Reference Range Interpretation [...] code = 1015) 243 K/UL CBC W/AUTO [id number] 00:00:00 Test Item Value Reference Range Interpretation [...] code = 1015) 243 K/UL CBC W/AUTO [id number] 00:00:00 Test Item Value Reference Range Interpretation [...] (test code = 1015) 243 K/UL HEMOGLOBIN [id number] 00:00:00 Test Item Value Reference Range Interpretation Comments HEMOGLOBIN A1c (test code = 25466) 6.4 % HEMOGLOBIN [id number] 00:00:00 Test Item Value Reference Range Interpretation Comments HEMOGLOBIN A1c (test code = 48773) 6.4 % HEMOGLOBIN [id number] 00:00:00 Test Item Value Reference Range Interpretation Comments HEMOGLOBIN A1c (test code = 26716) 6.4 % CBC W/AUTO [id number] 00:00:00 Test Item Value Reference Range Interpretation [...] code = 1015) 243 K/UL CBC W/AUTO [id number] 00:00:00 Test Item Value Reference Range Interpretation [...] code = 1015) 243 K/UL CBC W/AUTO [id number] 00:00:00 Test Item Value Reference Range Interpretation [...] (test code = 1015) 243 K/UL HEMOGLOBIN [id number] 00:00:00 Test Item Value Reference Range Interpretation Comments HEMOGLOBIN A1c (test code = 00111) 6.4 % HEMOGLOBIN [id number] 00:00:00 Test Item Value Reference Range Interpretation Comments HEMOGLOBIN A1c (test code = 22832) 6.4 % HEMOGLOBIN [id number] 00:00:00 Test Item Value Reference Range Interpretation Comments HEMOGLOBIN A1c (test code = 64635) 6.4 % CBC W/AUTO [id number] 00:00:00 Test Item Value Reference Range Interpretation [...] code = 1015) 243 K/UL CBC W/AUTO [id number] 00:00:00 Test Item Value Reference Range Interpretation [...] code = 1015) 243 K/UL CBC W/AUTO [id number] 00:00:00 Test Item Value Reference Range Interpretation [...] (test code = 1015) 243 K/UL HEMOGLOBIN [id number] 00:00:00 Test Item Value Reference Range Interpretation Comments HEMOGLOBIN A1c (test code = 44444) 6.4 % HEMOGLOBIN [id number] 00:00:00 Test Item Value Reference Range Interpretation Comments HEMOGLOBIN A1c (test code = 70249) 6.4 % HEMOGLOBIN [id number] 00:00:00 Test Item Value Reference Range Interpretation Comments HEMOGLOBIN A1c (test code = 76255) 6.4 % CHLAMYDIA, AMPLIFIED, [id number] 00:00:00 Test Item Value Reference Range Interpretation Comments CHLAMYDIA, AMPLIFIED (test code = NEGATIVE 44500) CHLAMYDIA, AMPLIFIED, [id number] 00:00:00 Test Item Value Reference Range Interpretation Comments CHLAMYDIA, AMPLIFIED (test code = NEGATIVE 94997) GC, AMPLIFIED, [id number] 00:00:00 Test Item Value Reference Range Interpretation Comments GONORRHEA, AMPLIFIED (test code = NEGATIVE 28312) GC, AMPLIFIED, [id number] 00:00:00 Test Item Value Reference Range Interpretation Comments GONORRHEA, AMPLIFIED (test code = NEGATIVE 93412) HIV AB/AG COMBO RFLX [id number] 00:00:00 Test Item Value Reference Range Interpretation Comments HIV AB/AG COMBO RFLX CONF (test NON-REACTIVE code = 3514) HIV AB/AG COMBO RFLX [id number] 00:00:00 Test Item Value Reference Range Interpretation Comments HIV AB/AG COMBO RFLX CONF (test NON-REACTIVE code = 3514) [id number] 00:00:00 Test Item Value Reference Range Interpretation Comments RPR RESULT (test code = NON-REACTIVE 3501) RPR TITER (test code = 3500) NOT INDIC. TITER [id number] 00:00:00 Test Item Value Reference Range Interpretation Comments RPR RESULT (test code = NON-REACTIVE 3501) RPR TITER (test code = 3500) NOT INDIC. TITER [id number] 00:00:00 Test Item Value Reference Range Interpretation [...] INTERPRETATION HEPATITIS B: (NOTE) (test code = 74149) INTERPRETATION HEPATITIS C: (NOTE) (test code = 53394) HEPATITIS PROFILE (A,B,C)2015-06-24 00:00:00 Test Item Value [...] INTERPRETATION HEPATITIS B: (NOTE) (test code = 96252) INTERPRETATION HEPATITIS C: (NOTE) (test code = 42591) COMPREHENSIVE METABOLIC [id number] 00:00:00 Test Item Value Reference Range Interpretation Comments GLUCOSE (test code = 2217) 105 MG/DL BUN (test code = 2208) 11 MG/DL CREATININE (test code = 2214) 0.80 MG/DL eGFR AMER. (test code 109 ML/MIN/1.73 = 37263) eGFR NON- AMER. (test 94 ML/MIN/1.73 code = 89118) CALCULATED BUN/CREAT (test 14 RATIO code = [...] code = 2219) 14 U/L COMPREHENSIVE METABOLIC [id number] 00:00:00 Test Item Value Reference Range Interpretation Comments GLUCOSE (test code = 2217) 105 MG/DL BUN (test code = 2208) 11 MG/DL CREATININE (test code = 2214) 0.80 MG/DL eGFR AMER. (test code 109 ML/MIN/1.73 = 92936) eGFR NON- AMER. (test 94 ML/MIN/1.73 code = 11953) CALCULATED BUN/CREAT (test 14 RATIO code = [...] (test code = 2219) 14 U/L LIPID [id number] 00:00:00 Test Item Value Reference Range Interpretation Comments CHOLESTEROL (test code = 2210) 211 MG/DL TRIGLYCERIDES (test code = 2232) 209 MG/DL HDL CHOLESTEROL (test code = 2220) 38 MG/DL CALCULATED LDL CHOL (test code = 131 MG/DL 2237) RISK RATIO LDL/HDL (test code = 3.45 RATIO 2238) LIPID [id number] 00:00:00 Test Item Value Reference Range Interpretation Comments CHOLESTEROL (test code = 2210) 211 MG/DL TRIGLYCERIDES (test code = 2232) 209 MG/DL HDL CHOLESTEROL (test code = 2220) 38 MG/DL CALCULATED LDL CHOL (test code = 131 MG/DL 2237) RISK RATIO LDL/HDL (test code = 3.45 RATIO 2238) CBC W/AUTO [id number] 00:00:00 Test Item Value Reference Range Interpretation [...] code = 1015) 254 K/UL CBC W/AUTO [id number] 00:00:00 Test Item Value Reference Range Interpretation [...] code = 1015) 254 K/UL CBC W/AUTO [id number] 00:00:00 Test Item Value Reference Range Interpretation [...] (test code = 1015) 254 K/UL HEMOGLOBIN [id number] 00:00:00 Test Item Value Reference Range Interpretation Comments HEMOGLOBIN A1c (test code = 45075) 6.9 % HEMOGLOBIN [id number] 00:00:00 Test Item Value Reference Range Interpretation Comments HEMOGLOBIN A1c (test code = 52068) 6.9 % HEMOGLOBIN [id number] 00:00:00 Test Item Value Reference Range Interpretation Comments HEMOGLOBIN A1c (test code = 45320) 6.9 % [id number] 00:00:00 Test Item Value Reference Range Interpretation Comments TSH (test code = 2821) 0.5 UIU/ML [id number] 00:00:00 Test Item Value Reference Range Interpretation Comments TSH (test code = 2821) 0.5 UIU/ML [id number] 00:00:00 Test Item Value Reference Range Interpretation Comments TSH (test code = 2821) 0.5 UIU/ML HEPATITIS A IgM [REFLEX]2015-06-24 00:00:00 Test Item Value Reference Range Interpretation Comments HEPATITIS A IgM (test code = NON-REACTIVE 2728) CHLAMYDIA, AMPLIFIED, [id number] 00:00:00 Test Item Value Reference Range Interpretation Comments CHLAMYDIA, AMPLIFIED (test code = NEGATIVE 20909) CHLAMYDIA, AMPLIFIED, [id number] 00:00:00 Test Item Value Reference Range Interpretation Comments CHLAMYDIA, AMPLIFIED (test code = NEGATIVE 66380) GC, AMPLIFIED, [id number] 00:00:00 Test Item Value Reference Range Interpretation Comments GONORRHEA, AMPLIFIED (test code = NEGATIVE 82126) GC, AMPLIFIED, [id number] 00:00:00 Test Item Value Reference Range Interpretation Comments GONORRHEA, AMPLIFIED (test code = NEGATIVE 32154) HIV AB/AG COMBO RFLX [id number] 00:00:00 Test Item Value Reference Range Interpretation Comments HIV AB/AG COMBO RFLX CONF (test NON-REACTIVE code = 3514) HIV AB/AG COMBO RFLX [id number] 00:00:00 Test Item Value Reference Range Interpretation Comments HIV AB/AG COMBO RFLX CONF (test NON-REACTIVE code = 3514) [id number] 00:00:00 Test Item Value Reference Range Interpretation Comments RPR RESULT (test code = NON-REACTIVE 3501) RPR TITER (test code = 3500) NOT INDIC. TITER [id number] 00:00:00 Test Item Value Reference Range Interpretation Comments RPR RESULT (test code = NON-REACTIVE 3501) RPR TITER (test code = 3500) NOT INDIC. TITER [id number] 00:00:00 Test Item Value Reference Range Interpretation [...] INTERPRETATION HEPATITIS B: (NOTE) (test code = 14178) INTERPRETATION HEPATITIS C: (NOTE) (test code = 71625) HEPATITIS PROFILE (A,B,C)2015-06-24 00:00:00 Test Item Value [...] INTERPRETATION HEPATITIS B: (NOTE) (test code = 62534) INTERPRETATION HEPATITIS C: (NOTE) (test code = 16129) COMPREHENSIVE METABOLIC [id number] 00:00:00 Test Item Value Reference Range Interpretation Comments GLUCOSE (test code = 2217) 105 MG/DL BUN (test code = 2208) 11 MG/DL CREATININE (test code = 2214) 0.80 MG/DL eGFR AMER. (test code 109 ML/MIN/1.73 = 18749) eGFR NON- AMER. (test 94 ML/MIN/1.73 code = 85357) CALCULATED BUN/CREAT (test 14 RATIO code = [...] code = 2219) 14 U/L COMPREHENSIVE METABOLIC [id number] 00:00:00 Test Item Value Reference Range Interpretation Comments GLUCOSE (test code = 2217) 105 MG/DL BUN (test code = 2208) 11 MG/DL CREATININE (test code = 2214) 0.80 MG/DL eGFR AMER. (test code 109 ML/MIN/1.73 = 49905) eGFR NON- AMER. (test 94 ML/MIN/1.73 code = 73677) CALCULATED BUN/CREAT (test 14 RATIO code = [...] (test code = 2219) 14 U/L LIPID [id number] 00:00:00 Test Item Value Reference Range Interpretation Comments CHOLESTEROL (test code = 2210) 211 MG/DL TRIGLYCERIDES (test code = 2232) 209 MG/DL HDL CHOLESTEROL (test code = 2220) 38 MG/DL CALCULATED LDL CHOL (test code = 131 MG/DL 2237) RISK RATIO LDL/HDL (test code = 3.45 RATIO 2238) LIPID [id number] 00:00:00 Test Item Value Reference Range Interpretation Comments CHOLESTEROL (test code = 2210) 211 MG/DL TRIGLYCERIDES (test code = 2232) 209 MG/DL HDL CHOLESTEROL (test code = 2220) 38 MG/DL CALCULATED LDL CHOL (test code = 131 MG/DL 2237) RISK RATIO LDL/HDL (test code = 3.45 RATIO 2238) CBC W/AUTO [id number] 00:00:00 Test Item Value Reference Range Interpretation [...] code = 1015) 254 K/UL CBC W/AUTO [id number] 00:00:00 Test Item Value Reference Range Interpretation [...] code = 1015) 254 K/UL CBC W/AUTO [id number] 00:00:00 Test Item Value Reference Range Interpretation [...] (test code = 1015) 254 K/UL HEMOGLOBIN [id number] 00:00:00 Test Item Value Reference Range Interpretation Comments HEMOGLOBIN A1c (test code = 87891) 6.9 % HEMOGLOBIN [id number] 00:00:00 Test Item Value Reference Range Interpretation Comments HEMOGLOBIN A1c (test code = 95313) 6.9 % HEMOGLOBIN [id number] 00:00:00 Test Item Value Reference Range Interpretation Comments HEMOGLOBIN A1c (test code = 87989) 6.9 % [id number] 00:00:00 Test Item Value Reference Range Interpretation Comments TSH (test code = 2821) 0.5 UIU/ML [id number] 00:00:00 Test Item Value Reference Range Interpretation Comments TSH (test code = 2821) 0.5 UIU/ML [id number] 00:00:00 Test Item Value Reference Range Interpretation Comments TSH (test code = 2821) 0.5 UIU/ML HEPATITIS A IgM [REFLEX]2015-06-24 00:00:00 Test Item Value Reference Range Interpretation Comments HEPATITIS A IgM (test code = NON-REACTIVE 2728) CHLAMYDIA, AMPLIFIED, [id number] 00:00:00 Test Item Value Reference Range Interpretation Comments CHLAMYDIA, AMPLIFIED (test code = NEGATIVE 95488) CHLAMYDIA, AMPLIFIED, [id number] 00:00:00 Test Item Value Reference Range Interpretation Comments CHLAMYDIA, AMPLIFIED (test code = NEGATIVE 25443) GC, AMPLIFIED, [id number] 00:00:00 Test Item Value Reference Range Interpretation Comments GONORRHEA, AMPLIFIED (test code = NEGATIVE 94023) GC, AMPLIFIED, [id number] 00:00:00 Test Item Value Reference Range Interpretation Comments GONORRHEA, AMPLIFIED (test code = NEGATIVE 01646) HIV AB/AG COMBO RFLX [id number] 00:00:00 Test Item Value Reference Range Interpretation Comments HIV AB/AG COMBO RFLX CONF (test NON-REACTIVE code = 3514) HIV AB/AG COMBO RFLX [id number] 00:00:00 Test Item Value Reference Range Interpretation Comments HIV AB/AG COMBO RFLX CONF (test NON-REACTIVE code = 3514) [id number] 00:00:00 Test Item Value Reference Range Interpretation Comments RPR RESULT (test code = NON-REACTIVE 3501) RPR TITER (test code = 3500) NOT INDIC. TITER [id number] 00:00:00 Test Item Value Reference Range Interpretation Comments RPR RESULT (test code = NON-REACTIVE 3501) RPR TITER (test code = 3500) NOT INDIC. TITER [id number] 00:00:00 Test Item Value Reference Range Interpretation [...] INTERPRETATION HEPATITIS B: (NOTE) (test code = 80804) INTERPRETATION HEPATITIS C: (NOTE) (test code = 72132) HEPATITIS PROFILE (A,B,C)2015-06-24 00:00:00 Test Item Value [...] INTERPRETATION HEPATITIS B: (NOTE) (test code = 62876) INTERPRETATION HEPATITIS C: (NOTE) (test code = 78180) COMPREHENSIVE METABOLIC [id number] 00:00:00 Test Item Value Reference Range Interpretation Comments GLUCOSE (test code = 2217) 105 MG/DL BUN (test code = 2208) 11 MG/DL CREATININE (test code = 2214) 0.80 MG/DL eGFR AMER. (test code 109 ML/MIN/1.73 = 52063) eGFR NON- AMER. (test 94 ML/MIN/1.73 code = 76772) CALCULATED BUN/CREAT (test 14 RATIO code = [...] code = 2219) 14 U/L COMPREHENSIVE METABOLIC [id number] 00:00:00 Test Item Value Reference Range Interpretation Comments GLUCOSE (test code = 2217) 105 MG/DL BUN (test code = 2208) 11 MG/DL CREATININE (test code = 2214) 0.80 MG/DL eGFR AMER. (test code 109 ML/MIN/1.73 = 84303) eGFR NON- AMER. (test 94 ML/MIN/1.73 code = 01182) CALCULATED BUN/CREAT (test 14 RATIO code = [...] (test code = 2219) 14 U/L LIPID [id number] 00:00:00 Test Item Value Reference Range Interpretation Comments CHOLESTEROL (test code = 2210) 211 MG/DL TRIGLYCERIDES (test code = 2232) 209 MG/DL HDL CHOLESTEROL (test code = 2220) 38 MG/DL CALCULATED LDL CHOL (test code = 131 MG/DL 2237) RISK RATIO LDL/HDL (test code = 3.45 RATIO 2238) LIPID [id number] 00:00:00 Test Item Value Reference Range Interpretation Comments CHOLESTEROL (test code = 2210) 211 MG/DL TRIGLYCERIDES (test code = 2232) 209 MG/DL HDL CHOLESTEROL (test code = 2220) 38 MG/DL CALCULATED LDL CHOL (test code = 131 MG/DL 2237) RISK RATIO LDL/HDL (test code = 3.45 RATIO 2238) CBC W/AUTO [id number] 00:00:00 Test Item Value Reference Range Interpretation [...] code = 1015) 254 K/UL CBC W/AUTO [id number] 00:00:00 Test Item Value Reference Range Interpretation [...] code = 1015) 254 K/UL CBC W/AUTO [id number] 00:00:00 Test Item Value Reference Range Interpretation [...] (test code = 1015) 254 K/UL HEMOGLOBIN [id number] 00:00:00 Test Item Value Reference Range Interpretation Comments HEMOGLOBIN A1c (test code = 78966) 6.9 % HEMOGLOBIN [id number] 00:00:00 Test Item Value Reference Range Interpretation Comments HEMOGLOBIN A1c (test code = 54895) 6.9 % HEMOGLOBIN [id number] 00:00:00 Test Item Value Reference Range Interpretation Comments HEMOGLOBIN A1c (test code = 29109) 6.9 % [id number] 00:00:00 Test Item Value Reference Range Interpretation Comments TSH (test code = 2821) 0.5 UIU/ML [id number] 00:00:00 Test Item Value Reference Range Interpretation Comments TSH (test code = 2821) 0.5 UIU/ML [id number] 00:00:00 Test Item Value Reference Range Interpretation Comments TSH (test code = 2821) 0.5 UIU/ML HEPATITIS A IgM [REFLEX]2015-06-24 00:00:00 Test Item Value Reference Range Interpretation Comments HEPATITIS A IgM (test code = NON-REACTIVE 2728) CHLAMYDIA, AMPLIFIED, [id number] 00:00:00 Test Item Value Reference Range Interpretation Comments CHLAMYDIA, AMPLIFIED (test code = NEGATIVE 63583) CHLAMYDIA, AMPLIFIED, [id number] 00:00:00 Test Item Value Reference Range Interpretation Comments CHLAMYDIA, AMPLIFIED (test code = NEGATIVE 82217) GC, AMPLIFIED, [id number] 00:00:00 Test Item Value Reference Range Interpretation Comments GONORRHEA, AMPLIFIED (test code = NEGATIVE 78577) GC, AMPLIFIED, [id number] 00:00:00 Test Item Value Reference Range Interpretation Comments GONORRHEA, AMPLIFIED (test code = NEGATIVE 36945) HIV AB/AG COMBO RFLX [id number] 00:00:00 Test Item Value Reference Range Interpretation Comments HIV AB/AG COMBO RFLX CONF (test NON-REACTIVE code = 3514) HIV AB/AG COMBO RFLX [id number] 00:00:00 Test Item Value Reference Range Interpretation Comments HIV AB/AG COMBO RFLX CONF (test NON-REACTIVE code = 3514) [id number] 00:00:00 Test Item Value Reference Range Interpretation Comments RPR RESULT (test code = NON-REACTIVE 3501) RPR TITER (test code = 3500) NOT INDIC. TITER [id number] 00:00:00 Test Item Value Reference Range Interpretation Comments RPR RESULT (test code = NON-REACTIVE 3501) RPR TITER (test code = 3500) NOT INDIC. TITER [id number] 00:00:00 Test Item Value Reference Range Interpretation [...] INTERPRETATION HEPATITIS B: (NOTE) (test code = 33379) INTERPRETATION HEPATITIS C: (NOTE) (test code = 13873) HEPATITIS PROFILE (A,B,C)2015-06-24 00:00:00 Test Item Value [...] INTERPRETATION HEPATITIS B: (NOTE) (test code = 23349) INTERPRETATION HEPATITIS C: (NOTE) (test code = 64243) COMPREHENSIVE METABOLIC [id number] 00:00:00 Test Item Value Reference Range Interpretation Comments GLUCOSE (test code = 2217) 105 MG/DL BUN (test code = 2208) 11 MG/DL CREATININE (test code = 2214) 0.80 MG/DL eGFR AMER. (test code 109 ML/MIN/1.73 = 21073) eGFR NON- AMER. (test 94 ML/MIN/1.73 code = 74257) CALCULATED BUN/CREAT (test 14 RATIO code = [...] code = 2219) 14 U/L COMPREHENSIVE METABOLIC [id number] 00:00:00 Test Item Value Reference Range Interpretation Comments GLUCOSE (test code = 2217) 105 MG/DL BUN (test code = 2208) 11 MG/DL CREATININE (test code = 2214) 0.80 MG/DL eGFR AMER. (test code 109 ML/MIN/1.73 = 02230) eGFR NON- AMER. (test 94 ML/MIN/1.73 code = 58905) CALCULATED BUN/CREAT (test 14 RATIO code = [...] (test code = 2219) 14 U/L LIPID [id number] 00:00:00 Test Item Value Reference Range Interpretation Comments CHOLESTEROL (test code = 2210) 211 MG/DL TRIGLYCERIDES (test code = 2232) 209 MG/DL HDL CHOLESTEROL (test code = 2220) 38 MG/DL CALCULATED LDL CHOL (test code = 131 MG/DL 2237) RISK RATIO LDL/HDL (test code = 3.45 RATIO 2238) LIPID [id number] 00:00:00 Test Item Value Reference Range Interpretation Comments CHOLESTEROL (test code = 2210) 211 MG/DL TRIGLYCERIDES (test code = 2232) 209 MG/DL HDL CHOLESTEROL (test code = 2220) 38 MG/DL CALCULATED LDL CHOL (test code = 131 MG/DL 2237) RISK RATIO LDL/HDL (test code = 3.45 RATIO 2238) CBC W/AUTO [id number] 00:00:00 Test Item Value Reference Range Interpretation [...] code = 1015) 254 K/UL CBC W/AUTO [id number] 00:00:00 Test Item Value Reference Range Interpretation [...] code = 1015) 254 K/UL CBC W/AUTO [id number] 00:00:00 Test Item Value Reference Range Interpretation [...] (test code = 1015) 254 K/UL HEMOGLOBIN [id number] 00:00:00 Test Item Value Reference Range Interpretation Comments HEMOGLOBIN A1c (test code = 94331) 6.9 % HEMOGLOBIN [id number] 00:00:00 Test Item Value Reference Range Interpretation Comments HEMOGLOBIN A1c (test code = 65888) 6.9 % HEMOGLOBIN [id number] 00:00:00 Test Item Value Reference Range Interpretation Comments HEMOGLOBIN A1c (test code = 30122) 6.9 % [id number] 00:00:00 Test Item Value Reference Range Interpretation Comments TSH (test code = 2821) 0.5 UIU/ML [id number] 00:00:00 Test Item Value Reference Range Interpretation Comments TSH (test code = 2821) 0.5 UIU/ML [id number] 00:00:00 Test Item Value Reference Range Interpretation Comments TSH (test code = 2821) 0.5 UIU/ML HEPATITIS A IgM [REFLEX]2015-06-24 00:00:00 Test Item Value Reference Range Interpretation Comments HEPATITIS A IgM (test code = NON-REACTIVE 2728) CHLAMYDIA, AMPLIFIED, [id number] 00:00:00 Test Item Value Reference Range Interpretation Comments CHLAMYDIA, AMPLIFIED (test code = NEGATIVE 20844) CHLAMYDIA, AMPLIFIED, [id number] 00:00:00 Test Item Value Reference Range Interpretation Comments CHLAMYDIA, AMPLIFIED (test code = NEGATIVE 38074) GC, AMPLIFIED, [id number] 00:00:00 Test Item Value Reference Range Interpretation Comments GONORRHEA, AMPLIFIED (test code = NEGATIVE 47471) GC, AMPLIFIED, [id number] 00:00:00 Test Item Value Reference Range Interpretation Comments GONORRHEA, AMPLIFIED (test code = NEGATIVE 36766) HIV AB/AG COMBO RFLX [id number] 00:00:00 Test Item Value Reference Range Interpretation Comments HIV AB/AG COMBO RFLX CONF (test NON-REACTIVE code = 3514) HIV AB/AG COMBO RFLX [id number] 00:00:00 Test Item Value Reference Range Interpretation Comments HIV AB/AG COMBO RFLX CONF (test NON-REACTIVE code = 3514) [id number] 00:00:00 Test Item Value Reference Range Interpretation Comments RPR RESULT (test code = NON-REACTIVE 3501) RPR TITER (test code = 3500) NOT INDIC. TITER [id number] 00:00:00 Test Item Value Reference Range Interpretation Comments RPR RESULT (test code = NON-REACTIVE 3501) RPR TITER (test code = 3500) NOT INDIC. TITER [id number] 00:00:00 Test Item Value Reference Range Interpretation [...] INTERPRETATION HEPATITIS B: (NOTE) (test code = 42009) INTERPRETATION HEPATITIS C: (NOTE) (test code = 04098) HEPATITIS PROFILE (A,B,C)2015-06-24 00:00:00 Test Item Value [...] INTERPRETATION HEPATITIS B: (NOTE) (test code = 41417) INTERPRETATION HEPATITIS C: (NOTE) (test code = 37270) COMPREHENSIVE METABOLIC [id number] 00:00:00 Test Item Value Reference Range Interpretation Comments GLUCOSE (test code = 2217) 105 MG/DL BUN (test code = 2208) 11 MG/DL CREATININE (test code = 2214) 0.80 MG/DL eGFR AMER. (test code 109 ML/MIN/1.73 = 16304) eGFR NON- AMER. (test 94 ML/MIN/1.73 code = 30862) CALCULATED BUN/CREAT (test 14 RATIO code = [...] code = 2219) 14 U/L COMPREHENSIVE METABOLIC [id number] 00:00:00 Test Item Value Reference Range Interpretation Comments GLUCOSE (test code = 2217) 105 MG/DL BUN (test code = 2208) 11 MG/DL CREATININE (test code = 2214) 0.80 MG/DL eGFR AMER. (test code 109 ML/MIN/1.73 = 45381) eGFR NON- AMER. (test 94 ML/MIN/1.73 code = 96612) CALCULATED BUN/CREAT (test 14 RATIO code = [...] (test code = 2219) 14 U/L LIPID [id number] 00:00:00 Test Item Value Reference Range Interpretation Comments CHOLESTEROL (test code = 2210) 211 MG/DL TRIGLYCERIDES (test code = 2232) 209 MG/DL HDL CHOLESTEROL (test code = 2220) 38 MG/DL CALCULATED LDL CHOL (test code = 131 MG/DL 2237) RISK RATIO LDL/HDL (test code = 3.45 RATIO 2238) LIPID [id number] 00:00:00 Test Item Value Reference Range Interpretation Comments CHOLESTEROL (test code = 2210) 211 MG/DL TRIGLYCERIDES (test code = 2232) 209 MG/DL HDL CHOLESTEROL (test code = 2220) 38 MG/DL CALCULATED LDL CHOL (test code = 131 MG/DL 2237) RISK RATIO LDL/HDL (test code = 3.45 RATIO 2238) CBC W/AUTO [id number] 00:00:00 Test Item Value Reference Range Interpretation [...] code = 1015) 254 K/UL CBC W/AUTO [id number] 00:00:00 Test Item Value Reference Range Interpretation [...] code = 1015) 254 K/UL CBC W/AUTO [id number] 00:00:00 Test Item Value Reference Range Interpretation [...] (test code = 1015) 254 K/UL HEMOGLOBIN [id number] 00:00:00 Test Item Value Reference Range Interpretation Comments HEMOGLOBIN A1c (test code = 16324) 6.9 % HEMOGLOBIN [id number] 00:00:00 Test Item Value Reference Range Interpretation Comments HEMOGLOBIN A1c (test code = 05562) 6.9 % HEMOGLOBIN [id number] 00:00:00 Test Item Value Reference Range Interpretation Comments HEMOGLOBIN A1c (test code = 58942) 6.9 % [id number] 00:00:00 Test Item Value Reference Range Interpretation Comments TSH (test code = 2821) 0.5 UIU/ML [id number] 00:00:00 Test Item Value Reference Range Interpretation Comments TSH (test code = 2821) 0.5 UIU/ML [id number] 00:00:00 Test Item Value Reference Range Interpretation Comments TSH (test code = 2821) 0.5 UIU/ML HEPATITIS A IgM [REFLEX]2015-06-24 00:00:00 Test Item Value Reference Range Interpretation Comments HEPATITIS A IgM (test code = NON-REACTIVE 8378) CHLAMYDIA, AMPLIFIED, [id number] 00:00:00 Test Item Value Reference Range Interpretation Comments CHLAMYDIA, AMPLIFIED (test code = NEGATIVE 35398) CHLAMYDIA, AMPLIFIED, [id number] 00:00:00 Test Item Value Reference Range Interpretation Comments CHLAMYDIA, AMPLIFIED (test code = NEGATIVE 27050) GC, AMPLIFIED, [id number] 00:00:00 Test Item Value Reference Range Interpretation Comments GONORRHEA, AMPLIFIED (test code = NEGATIVE 73425) GC, AMPLIFIED, [id number] 00:00:00 Test Item Value Reference Range Interpretation Comments GONORRHEA, AMPLIFIED (test code = NEGATIVE 91186) HIV AB/AG COMBO RFLX [id number] 00:00:00 Test Item Value Reference Range Interpretation Comments HIV AB/AG COMBO RFLX CONF (test NON-REACTIVE code = 3514) HIV AB/AG COMBO RFLX [id number] 00:00:00 Test Item Value Reference Range Interpretation Comments HIV AB/AG COMBO RFLX CONF (test NON-REACTIVE code = 3514) [id number] 00:00:00 Test Item Value Reference Range Interpretation Comments RPR RESULT (test code = NON-REACTIVE 3501) RPR TITER (test code = 3500) NOT INDIC. TITER [id number] 00:00:00 Test Item Value Reference Range Interpretation Comments RPR RESULT (test code = NON-REACTIVE 3501) RPR TITER (test code = 3500) NOT INDIC. TITER [id number] 00:00:00 Test Item Value Reference Range Interpretation [...] INTERPRETATION HEPATITIS B: (NOTE) (test code = 52133) INTERPRETATION HEPATITIS C: (NOTE) (test code = 04577) HEPATITIS PROFILE (A,B,C)2015-06-24 00:00:00 Test Item Value [...] INTERPRETATION HEPATITIS B: (NOTE) (test code = 02498) INTERPRETATION HEPATITIS C: (NOTE) (test code = 61057) COMPREHENSIVE METABOLIC [id number] 00:00:00 Test Item Value Reference Range Interpretation Comments GLUCOSE (test code = 2217) 105 MG/DL BUN (test code = 2208) 11 MG/DL CREATININE (test code = 2214) 0.80 MG/DL eGFR AMER. (test code 109 ML/MIN/1.73 = 73182) eGFR NON- AMER. (test 94 ML/MIN/1.73 code = 69671) CALCULATED BUN/CREAT (test 14 RATIO code = [...] code = 2219) 14 U/L COMPREHENSIVE METABOLIC [id number] 00:00:00 Test Item Value Reference Range Interpretation Comments GLUCOSE (test code = 2217) 105 MG/DL BUN (test code = 2208) 11 MG/DL CREATININE (test code = 2214) 0.80 MG/DL eGFR AMER. (test code 109 ML/MIN/1.73 = 66602) eGFR NON- AMER. (test 94 ML/MIN/1.73 code = 98398) CALCULATED BUN/CREAT (test 14 RATIO code = [...] (test code = 2219) 14 U/L LIPID [id number] 00:00:00 Test Item Value Reference Range Interpretation Comments CHOLESTEROL (test code = 2210) 211 MG/DL TRIGLYCERIDES (test code = 2232) 209 MG/DL HDL CHOLESTEROL (test code = 2220) 38 MG/DL CALCULATED LDL CHOL (test code = 131 MG/DL 2237) RISK RATIO LDL/HDL (test code = 3.45 RATIO 2238) LIPID [id number] 00:00:00 Test Item Value Reference Range Interpretation Comments CHOLESTEROL (test code = 2210) 211 MG/DL TRIGLYCERIDES (test code = 2232) 209 MG/DL HDL CHOLESTEROL (test code = 2220) 38 MG/DL CALCULATED LDL CHOL (test code = 131 MG/DL 2237) RISK RATIO LDL/HDL (test code = 3.45 RATIO 2238) CBC W/AUTO [id number] 00:00:00 Test Item Value Reference Range Interpretation [...] code = 1015) 254 K/UL CBC W/AUTO [id number] 00:00:00 Test Item Value Reference Range Interpretation [...] code = 1015) 254 K/UL CBC W/AUTO [id number] 00:00:00 Test Item Value Reference Range Interpretation [...] (test code = 1015) 254 K/UL HEMOGLOBIN [id number] 00:00:00 Test Item Value Reference Range Interpretation Comments HEMOGLOBIN A1c (test code = 17862) 6.9 % HEMOGLOBIN [id number] 00:00:00 Test Item Value Reference Range Interpretation Comments HEMOGLOBIN A1c (test code = 61488) 6.9 % HEMOGLOBIN [id number] 00:00:00 Test Item Value Reference Range Interpretation Comments HEMOGLOBIN A1c (test code = 76205) 6.9 % [id number] 00:00:00 Test Item Value Reference Range Interpretation Comments TSH (test code = 2821) 0.5 UIU/ML [id number] 00:00:00 Test Item Value Reference Range Interpretation Comments TSH (test code = 2821) 0.5 UIU/ML [id number] 00:00:00 Test Item Value Reference Range Interpretation Comments TSH (test code = 2821) 0.5 UIU/ML HEPATITIS A IgM [REFLEX]2015-06-24 00:00:00 Test Item Value Reference Range Interpretation Comments HEPATITIS A IgM (test code = NON-REACTIVE 2728) CHLAMYDIA, AMPLIFIED, [id number] 00:00:00 Test Item Value Reference Range Interpretation Comments CHLAMYDIA, AMPLIFIED (test code = NEGATIVE 32120) CHLAMYDIA, AMPLIFIED, [id number] 00:00:00 Test Item Value Reference Range Interpretation Comments CHLAMYDIA, AMPLIFIED (test code = NEGATIVE 09615) GC, AMPLIFIED, [id number] 00:00:00 Test Item Value Reference Range Interpretation Comments GONORRHEA, AMPLIFIED (test code = NEGATIVE 31389) GC, AMPLIFIED, [id number] 00:00:00 Test Item Value Reference Range Interpretation Comments GONORRHEA, AMPLIFIED (test code = NEGATIVE 29868) HIV AB/AG COMBO RFLX [id number] 00:00:00 Test Item Value Reference Range Interpretation Comments HIV AB/AG COMBO RFLX CONF (test NON-REACTIVE code = 3514) HIV AB/AG COMBO RFLX [id number] 00:00:00 Test Item Value Reference Range Interpretation Comments HIV AB/AG COMBO RFLX CONF (test NON-REACTIVE code = 3514) [id number] 00:00:00 Test Item Value Reference Range Interpretation Comments RPR RESULT (test code = NON-REACTIVE 3501) RPR TITER (test code = 3500) NOT INDIC. TITER [id number] 00:00:00 Test Item Value Reference Range Interpretation Comments RPR RESULT (test code = NON-REACTIVE 3501) RPR TITER (test code = 3500) NOT INDIC. TITER [id number] 00:00:00 Test Item Value Reference Range Interpretation [...] INTERPRETATION HEPATITIS B: (NOTE) (test code = 62097) INTERPRETATION HEPATITIS C: (NOTE) (test code = 61582) HEPATITIS PROFILE (A,B,C)2015-06-24 00:00:00 Test Item Value [...] INTERPRETATION HEPATITIS B: (NOTE) (test code = 68694) INTERPRETATION HEPATITIS C: (NOTE) (test code = 82178) COMPREHENSIVE METABOLIC [id number] 00:00:00 Test Item Value Reference Range Interpretation Comments GLUCOSE (test code = 2217) 105 MG/DL BUN (test code = 2208) 11 MG/DL CREATININE (test code = 2214) 0.80 MG/DL eGFR AMER. (test code 109 ML/MIN/1.73 = 14219) eGFR NON- AMER. (test 94 ML/MIN/1.73 code = 89565) CALCULATED BUN/CREAT (test 14 RATIO code = [...] code = 2219) 14 U/L COMPREHENSIVE METABOLIC [id number] 00:00:00 Test Item Value Reference Range Interpretation Comments GLUCOSE (test code = 2217) 105 MG/DL BUN (test code = 2208) 11 MG/DL CREATININE (test code = 2214) 0.80 MG/DL eGFR AMER. (test code 109 ML/MIN/1.73 = 10802) eGFR NON- AMER. (test 94 ML/MIN/1.73 code = 62517) CALCULATED BUN/CREAT (test 14 RATIO code = [...] (test code = 2219) 14 U/L LIPID [id number] 00:00:00 Test Item Value Reference Range Interpretation Comments CHOLESTEROL (test code = 2210) 211 MG/DL TRIGLYCERIDES (test code = 2232) 209 MG/DL HDL CHOLESTEROL (test code = 2220) 38 MG/DL CALCULATED LDL CHOL (test code = 131 MG/DL 2236) RISK RATIO LDL/HDL (test code = 3.45 RATIO 2238) LIPID [id number] 00:00:00 Test Item Value Reference Range Interpretation Comments CHOLESTEROL (test code = 2210) 211 MG/DL TRIGLYCERIDES (test code = 2232) 209 MG/DL HDL CHOLESTEROL (test code = 2220) 38 MG/DL CALCULATED LDL CHOL (test code = 131 MG/DL 2237) RISK RATIO LDL/HDL (test code = 3.45 RATIO 2238) CBC W/AUTO [id number] 00:00:00 Test Item Value Reference Range Interpretation [...] code = 1015) 254 K/UL CBC W/AUTO [id number] 00:00:00 Test Item Value Reference Range Interpretation [...] code = 1015) 254 K/UL CBC W/AUTO [id number] 00:00:00 Test Item Value Reference Range Interpretation [...] (test code = 1015) 254 K/UL HEMOGLOBIN [id number] 00:00:00 Test Item Value Reference Range Interpretation Comments HEMOGLOBIN A1c (test code = 03969) 6.9 % HEMOGLOBIN [id number] 00:00:00 Test Item Value Reference Range Interpretation Comments HEMOGLOBIN A1c (test code = 47074) 6.9 % HEMOGLOBIN [id number] 00:00:00 Test Item Value Reference Range Interpretation Comments HEMOGLOBIN A1c (test code = 56716) 6.9 % [id number] 00:00:00 Test Item Value Reference Range Interpretation Comments TSH (test code = 2821) 0.5 UIU/ML [id number] 00:00:00 Test Item Value Reference Range Interpretation Comments TSH (test code = 2821) 0.5 UIU/ML [id number] 00:00:00 Test Item Value Reference Range Interpretation Comments TSH (test code = 2821) 0.5 UIU/ML HEPATITIS A IgM [REFLEX]2015-06-24 00:00:00 Test Item Value Reference Range Interpretation Comments HEPATITIS A IgM (test code = NON-REACTIVE 5058) CHLAMYDIA, AMPLIFIED, [id number] 00:00:00 Test Item Value Reference Range Interpretation Comments CHLAMYDIA, AMPLIFIED (test code = NEGATIVE 35744) GC, AMPLIFIED, [id number] 00:00:00 Test Item Value Reference Range Interpretation Comments GONORRHEA, AMPLIFIED (test code = NEGATIVE 40437) HIV AB/AG COMBO RFLX [id number] 00:00:00 Test Item Value Reference Range Interpretation Comments HIV AB/AG COMBO RFLX CONF (test NON-REACTIVE code = 3514) [id number] 00:00:00 Test Item Value Reference Range Interpretation Comments RPR RESULT (test code = NON-REACTIVE 3501) RPR TITER (test code = 3500) NOT INDIC. TITER CHLAMYDIA, AMPLIFIED, [id number] 00:00:00 Test Item Value Reference Range Interpretation Comments CHLAMYDIA, AMPLIFIED (test code = NEGATIVE 23264) [id number] 00:00:00 Test Item Value Reference Range Interpretation Comments RPR RESULT (test code = NON-REACTIVE 3501) RPR TITER (test code = 3500) NOT INDIC. TITER CHLAMYDIA, AMPLIFIED, [id number] 00:00:00 Test Item Value Reference Range Interpretation Comments CHLAMYDIA, AMPLIFIED (test code = NEGATIVE 06084) GC, AMPLIFIED, [id number] 00:00:00 Test Item Value Reference Range Interpretation Comments GONORRHEA, AMPLIFIED (test code = NEGATIVE 86609) GC, AMPLIFIED, [id number] 00:00:00 Test Item Value Reference Range Interpretation Comments GONORRHEA, AMPLIFIED (test code = NEGATIVE 08467) HIV AB/AG COMBO RFLX [id number] 00:00:00 Test Item Value Reference Range Interpretation Comments HIV AB/AG COMBO RFLX CONF (test NON-REACTIVE code = 3514) HIV AB/AG COMBO RFLX [id number] 00:00:00 Test Item Value Reference Range Interpretation Comments HIV AB/AG COMBO RFLX CONF (test NON-REACTIVE code = 3514) [id number] 00:00:00 Test Item Value Reference Range Interpretation Comments RPR RESULT (test code = NON-REACTIVE 3501) RPR TITER (test code = 3500) NOT INDIC. TITER [id number] 00:00:00 Test Item Value Reference Range Interpretation Comments RPR RESULT (test code = NON-REACTIVE 3501) RPR TITER (test code = 3500) NOT INDIC. TITER [id number] 00:00:00 Test Item Value Reference Range Interpretation [...] INTERPRETATION HEPATITIS B: (NOTE) (test code = 28698) INTERPRETATION HEPATITIS C: (NOTE) (test code = 73640) HEPATITIS PROFILE (A,B,C)2015-06-24 00:00:00 Test Item Value [...] INTERPRETATION HEPATITIS B: (NOTE) (test code = 58425) INTERPRETATION HEPATITIS C: (NOTE) (test code = 04372) HEPATITIS PROFILE (A,B,C)2015-06-24 00:00:00 Test Item Value [...] INTERPRETATION HEPATITIS B: (NOTE) (test code = 07985) INTERPRETATION HEPATITIS C: (NOTE) (test code = 71382) COMPREHENSIVE METABOLIC [id number] 00:00:00 Test Item Value Reference Range Interpretation Comments GLUCOSE (test code = 2217) 105 MG/DL BUN (test code = 2208) 11 MG/DL CREATININE (test code = 2214) 0.80 MG/DL eGFR AMER. (test code 109 ML/MIN/1.73 = 51614) eGFR NON- AMER. (test 94 ML/MIN/1.73 code = 88404) CALCULATED BUN/CREAT (test 14 RATIO code = [...] code = 2219) 14 U/L COMPREHENSIVE METABOLIC [id number] 00:00:00 Test Item Value Reference Range Interpretation Comments GLUCOSE (test code = 2217) 105 MG/DL BUN (test code = 2208) 11 MG/DL CREATININE (test code = 2214) 0.80 MG/DL eGFR AMER. (test code 109 ML/MIN/1.73 = 60176) eGFR NON- AMER. (test 94 ML/MIN/1.73 code = 76232) CALCULATED BUN/CREAT (test 14 RATIO code = [...] (test code = 2219) 14 U/L LIPID [id number] 00:00:00 Test Item Value Reference Range Interpretation Comments CHOLESTEROL (test code = 2210) 211 MG/DL TRIGLYCERIDES (test code = 2232) 209 MG/DL HDL CHOLESTEROL (test code = 2220) 38 MG/DL CALCULATED LDL CHOL (test code = 131 MG/DL 2237) RISK RATIO LDL/HDL (test code = 3.45 RATIO 2238) LIPID [id number] 00:00:00 Test Item Value Reference Range Interpretation Comments CHOLESTEROL (test code = 2210) 211 MG/DL TRIGLYCERIDES (test code = 2232) 209 MG/DL HDL CHOLESTEROL (test code = 2220) 38 MG/DL CALCULATED LDL CHOL (test code = 131 MG/DL 2237) RISK RATIO LDL/HDL (test code = 3.45 RATIO 2238) CBC W/AUTO [id number] 00:00:00 Test Item Value Reference Range Interpretation [...] code = 1015) 254 K/UL CBC W/AUTO [id number] 00:00:00 Test Item Value Reference Range Interpretation [...] code = 1015) 254 K/UL CBC W/AUTO [id number] 00:00:00 Test Item Value Reference Range Interpretation [...] (test code = 1015) 254 K/UL HEMOGLOBIN [id number] 00:00:00 Test Item Value Reference Range Interpretation Comments HEMOGLOBIN A1c (test code = 30529) 6.9 % HEMOGLOBIN [id number] 00:00:00 Test Item Value Reference Range Interpretation Comments HEMOGLOBIN A1c (test code = 11281) 6.9 % HEMOGLOBIN [id number] 00:00:00 Test Item Value Reference Range Interpretation Comments HEMOGLOBIN A1c (test code = 10597) 6.9 % [id number] 00:00:00 Test Item Value Reference Range Interpretation Comments TSH (test code = 2821) 0.5 UIU/ML [id number] 00:00:00 Test Item Value Reference Range Interpretation Comments TSH (test code = 2821) 0.5 UIU/ML [id number] 00:00:00 Test Item Value Reference Range Interpretation Comments TSH (test code = 2821) 0.5 UIU/ML HEPATITIS A IgM [REFLEX]2015-06-24 00:00:00 Test Item Value Reference Range Interpretation Comments HEPATITIS A IgM (test code = NON-REACTIVE 6825) COMPREHENSIVE METABOLIC [id number] 00:00:00 Test Item Value Reference Range Interpretation Comments GLUCOSE (test code = 2217) 105 MG/DL BUN (test code = 2208) 11 MG/DL CREATININE (test code = 2214) 0.80 MG/DL eGFR AMER. (test code 109 ML/MIN/1.73 = 80883) eGFR NON- AMER. (test 94 ML/MIN/1.73 code = 22127) CALCULATED BUN/CREAT (test 14 RATIO code = [...] (test code = 2219) 14 U/L LIPID [id number] 00:00:00 Test Item Value Reference Range Interpretation Comments CHOLESTEROL (test code = 2210) 211 MG/DL TRIGLYCERIDES (test code = 2232) 209 MG/DL HDL CHOLESTEROL (test code = 2220) 38 MG/DL CALCULATED LDL CHOL (test code = 131 MG/DL 2236) RISK RATIO LDL/HDL (test code = 3.45 RATIO 2237) CBC W/AUTO [id number] 00:00:00 Test Item Value Reference Range Interpretation [...] code = 1015) 254 K/UL CBC W/AUTO [id number] 00:00:00 Test Item Value Reference Range Interpretation [...] (test code = 1015) 254 K/UL HEMOGLOBIN [id number] 00:00:00 Test Item Value Reference Range Interpretation Comments HEMOGLOBIN A1c (test code = 65696) 6.9 % HEMOGLOBIN [id number] 00:00:00 Test Item Value Reference Range Interpretation Comments HEMOGLOBIN A1c (test code = 37840) 6.9 % [id number] 00:00:00 Test Item Value Reference Range Interpretation Comments TSH (test code = 2821) 0.5 UIU/ML [id number] 00:00:00 Test Item Value Reference Range Interpretation Comments TSH (test code = 2821) 0.5 UIU/ML HEPATITIS A IgM [REFLEX]2015-06-24 00:00:00 Test Item Value Reference Range Interpretation Comments HEPATITIS A IgM (test code = NON-REACTIVE 1883) CHLAMYDIA, AMPLIFIED, [id number] 00:00:00 Test Item Value Reference Range Interpretation Comments CHLAMYDIA, AMPLIFIED (test code = NEGATIVE 08191) CHLAMYDIA, AMPLIFIED, [id number] 00:00:00 Test Item Value Reference Range Interpretation Comments CHLAMYDIA, AMPLIFIED (test code = NEGATIVE 00008) GC, AMPLIFIED, [id number] 00:00:00 Test Item Value Reference Range Interpretation Comments GONORRHEA, AMPLIFIED (test code = NEGATIVE 06760) GC, AMPLIFIED, [id number] 00:00:00 Test Item Value Reference Range Interpretation Comments GONORRHEA, AMPLIFIED (test code = NEGATIVE 47212) HIV AB/AG COMBO RFLX [id number] 00:00:00 Test Item Value Reference Range Interpretation Comments HIV AB/AG COMBO RFLX CONF (test NON-REACTIVE code = 3514) HIV AB/AG COMBO RFLX [id number] 00:00:00 Test Item Value Reference Range Interpretation Comments HIV AB/AG COMBO RFLX CONF (test NON-REACTIVE code = 3514) [id number] 00:00:00 Test Item Value Reference Range Interpretation Comments RPR RESULT (test code = NON-REACTIVE 3501) RPR TITER (test code = 3500) NOT INDIC. TITER [id number] 00:00:00 Test Item Value Reference Range Interpretation Comments RPR RESULT (test code = NON-REACTIVE 3501) RPR TITER (test code = 3500) NOT INDIC. TITER [id number] 00:00:00 Test Item Value Reference Range Interpretation [...] INTERPRETATION HEPATITIS B: (NOTE) (test code = 26833) INTERPRETATION HEPATITIS C: (NOTE) (test code = 47470) HEPATITIS PROFILE (A,B,C)2015-06-24 00:00:00 Test Item Value [...] INTERPRETATION HEPATITIS B: (NOTE) (test code = 77718) INTERPRETATION HEPATITIS C: (NOTE) (test code = 63228) COMPREHENSIVE METABOLIC [id number] 00:00:00 Test Item Value Reference Range Interpretation Comments GLUCOSE (test code = 2217) 105 MG/DL BUN (test code = 2208) 11 MG/DL CREATININE (test code = 2214) 0.80 MG/DL eGFR AMER. (test code 109 ML/MIN/1.73 = 81162) eGFR NON- AMER. (test 94 ML/MIN/1.73 code = 77279) CALCULATED BUN/CREAT (test 14 RATIO code = [...] code = 2219) 14 U/L COMPREHENSIVE METABOLIC [id number] 00:00:00 Test Item Value Reference Range Interpretation Comments GLUCOSE (test code = 2217) 105 MG/DL BUN (test code = 2208) 11 MG/DL CREATININE (test code = 2214) 0.80 MG/DL eGFR AMER. (test code 109 ML/MIN/1.73 = 00151) eGFR NON- AMER. (test 94 ML/MIN/1.73 code = 85364) CALCULATED BUN/CREAT (test 14 RATIO code = [...] (test code = 2219) 14 U/L LIPID [id number] 00:00:00 Test Item Value Reference Range Interpretation Comments CHOLESTEROL (test code = 2210) 211 MG/DL TRIGLYCERIDES (test code = 2232) 209 MG/DL HDL CHOLESTEROL (test code = 2220) 38 MG/DL CALCULATED LDL CHOL (test code = 131 MG/DL 2237) RISK RATIO LDL/HDL (test code = 3.45 RATIO 2238) LIPID [id number] 00:00:00 Test Item Value Reference Range Interpretation Comments CHOLESTEROL (test code = 2210) 211 MG/DL TRIGLYCERIDES (test code = 2232) 209 MG/DL HDL CHOLESTEROL (test code = 2220) 38 MG/DL CALCULATED LDL CHOL (test code = 131 MG/DL 2237) RISK RATIO LDL/HDL (test code = 3.45 RATIO 2238) CBC W/AUTO [id number] 00:00:00 Test Item Value Reference Range Interpretation [...] code = 1015) 254 K/UL CBC W/AUTO [id number] 00:00:00 Test Item Value Reference Range Interpretation [...] code = 1015) 254 K/UL CBC W/AUTO [id number] 00:00:00 Test Item Value Reference Range Interpretation [...] (test code = 1015) 254 K/UL HEMOGLOBIN [id number] 00:00:00 Test Item Value Reference Range Interpretation Comments HEMOGLOBIN A1c (test code = 59173) 6.9 % HEMOGLOBIN [id number] 00:00:00 Test Item Value Reference Range Interpretation Comments HEMOGLOBIN A1c (test code = 40461) 6.9 % HEMOGLOBIN [id number] 00:00:00 Test Item Value Reference Range Interpretation Comments HEMOGLOBIN A1c (test code = 21777) 6.9 % [id number] 00:00:00 Test Item Value Reference Range Interpretation Comments TSH (test code = 2821) 0.5 UIU/ML [id number] 00:00:00 Test Item Value Reference Range Interpretation Comments TSH (test code = 2821) 0.5 UIU/ML [id number] 00:00:00 Test Item Value Reference Range Interpretation Comments TSH (test code = 2821) 0.5 UIU/ML HEPATITIS A IgM [REFLEX]2015-06-24 00:00:00 Test Item Value Reference Range Interpretation Comments HEPATITIS A IgM (test code = NON-REACTIVE 2728) CHLAMYDIA, AMPLIFIED, [id number] 00:00:00 Test Item Value Reference Range Interpretation Comments CHLAMYDIA, AMPLIFIED (test code = NEGATIVE 21724) CHLAMYDIA, AMPLIFIED, [id number] 00:00:00 Test Item Value Reference Range Interpretation Comments CHLAMYDIA, AMPLIFIED (test code = NEGATIVE 21346) GC, AMPLIFIED, [id number] 00:00:00 Test Item Value Reference Range Interpretation Comments GONORRHEA, AMPLIFIED (test code = NEGATIVE 87013) GC, AMPLIFIED, [id number] 00:00:00 Test Item Value Reference Range Interpretation Comments GONORRHEA, AMPLIFIED (test code = NEGATIVE 57681) HIV AB/AG COMBO RFLX [id number] 00:00:00 Test Item Value Reference Range Interpretation Comments HIV AB/AG COMBO RFLX CONF (test NON-REACTIVE code = 3514) HIV AB/AG COMBO RFLX [id number] 00:00:00 Test Item Value Reference Range Interpretation Comments HIV AB/AG COMBO RFLX CONF (test NON-REACTIVE code = 3514) [id number] 00:00:00 Test Item Value Reference Range Interpretation Comments RPR RESULT (test code = NON-REACTIVE 3501) RPR TITER (test code = 3500) NOT INDIC. TITER [id number] 00:00:00 Test Item Value Reference Range Interpretation Comments RPR RESULT (test code = NON-REACTIVE 3501) RPR TITER (test code = 3500) NOT INDIC. TITER [id number] 00:00:00 Test Item Value Reference Range Interpretation [...] INTERPRETATION HEPATITIS B: (NOTE) (test code = 94386) INTERPRETATION HEPATITIS C: (NOTE) (test code = 67542) HEPATITIS PROFILE (A,B,C)2015-06-24 00:00:00 Test Item Value [...] INTERPRETATION HEPATITIS B: (NOTE) (test code = 52856) INTERPRETATION HEPATITIS C: (NOTE) (test code = 88707) COMPREHENSIVE METABOLIC [id number] 00:00:00 Test Item Value Reference Range Interpretation Comments GLUCOSE (test code = 2217) 105 MG/DL BUN (test code = 2208) 11 MG/DL CREATININE (test code = 2214) 0.80 MG/DL eGFR AMER. (test code 109 ML/MIN/1.73 = 95388) eGFR NON- AMER. (test 94 ML/MIN/1.73 code = 85751) CALCULATED BUN/CREAT (test 14 RATIO code = [...] code = 2219) 14 U/L COMPREHENSIVE METABOLIC [id number] 00:00:00 Test Item Value Reference Range Interpretation Comments GLUCOSE (test code = 2217) 105 MG/DL BUN (test code = 2208) 11 MG/DL CREATININE (test code = 2214) 0.80 MG/DL eGFR AMER. (test code 109 ML/MIN/1.73 = 53676) eGFR NON- AMER. (test 94 ML/MIN/1.73 code = 35771) CALCULATED BUN/CREAT (test 14 RATIO code = [...] (test code = 2219) 14 U/L LIPID [id number] 00:00:00 Test Item Value Reference Range Interpretation Comments CHOLESTEROL (test code = 2210) 211 MG/DL TRIGLYCERIDES (test code = 2232) 209 MG/DL HDL CHOLESTEROL (test code = 2220) 38 MG/DL CALCULATED LDL CHOL (test code = 131 MG/DL 2236) RISK RATIO LDL/HDL (test code = 3.45 RATIO 2238) LIPID [id number] 00:00:00 Test Item Value Reference Range Interpretation Comments CHOLESTEROL (test code = 2210) 211 MG/DL TRIGLYCERIDES (test code = 2232) 209 MG/DL HDL CHOLESTEROL (test code = 2220) 38 MG/DL CALCULATED LDL CHOL (test code = 131 MG/DL 2236) RISK RATIO LDL/HDL (test code = 3.45 RATIO 8) CBC W/AUTO [id number] 00:00:00 Test Item Value Reference Range Interpretation [...] code = 1015) 254 K/UL CBC W/AUTO [id number] 00:00:00 Test Item Value Reference Range Interpretation [...] code = 1015) 254 K/UL CBC W/AUTO [id number] 00:00:00 Test Item Value Reference Range Interpretation [...] (test code = 1015) 254 K/UL HEMOGLOBIN [id number] 00:00:00 Test Item Value Reference Range Interpretation Comments HEMOGLOBIN A1c (test code = 54175) 6.9 % HEMOGLOBIN [id number] 00:00:00 Test Item Value Reference Range Interpretation Comments HEMOGLOBIN A1c (test code = 71238) 6.9 % HEMOGLOBIN [id number] 00:00:00 Test Item Value Reference Range Interpretation Comments HEMOGLOBIN A1c (test code = 15357) 6.9 % [id number] 00:00:00 Test Item Value Reference Range Interpretation Comments TSH (test code = 2821) 0.5 UIU/ML [id number] 00:00:00 Test Item Value Reference Range Interpretation Comments TSH (test code = 2821) 0.5 UIU/ML [id number] 00:00:00 Test Item Value Reference Range Interpretation Comments TSH (test code = 2821) 0.5 UIU/ML HEPATITIS A IgM [REFLEX]2015-06-24 00:00:00 Test Item Value Reference Range Interpretation Comments HEPATITIS A IgM (test code = NON-REACTIVE 0418) COMPREHENSIVE METABOLIC [id number] 00:00:00 Test Item Value Reference Range Interpretation Comments GLUCOSE (test code = 2217) 113 MG/DL BUN (test code = 2208) 22 MG/DL CREATININE (test code = 2214) 0.9 MG/DL eGFR AMER. (test code 85 ML/MIN/1.73 = 78199) eGFR NON- AMER. (test 70 ML/MIN/1.73 code = 44018) CALCULATED BUN/CREAT (test 24 RATIO code = [...] code = 2219) 24 U/L COMPREHENSIVE METABOLIC [id number] 00:00:00 Test Item Value Reference Range Interpretation Comments GLUCOSE (test code = 2217) 113 MG/DL BUN (test code = 2208) 22 MG/DL CREATININE (test code = 2214) 0.9 MG/DL eGFR AMER. (test code 85 ML/MIN/1.73 = 56766) eGFR NON- AMER. (test 70 ML/MIN/1.73 code = 73861) CALCULATED BUN/CREAT (test 24 RATIO code = [...] code = 2219) 24 U/L CBC W/AUTO [id number] 00:00:00 Test Item Value Reference Range Interpretation [...] code = 1015) 270 K/UL CBC W/AUTO [id number] 00:00:00 Test Item Value Reference Range Interpretation [...] code = 1015) 270 K/UL CBC W/AUTO [id number] 00:00:00 Test Item Value Reference Range Interpretation [...] (test code = 1015) 270 K/UL HEMOGLOBIN [id number] 00:00:00 Test Item Value Reference Range Interpretation Comments HEMOGLOBIN A1c (test code = 63413) 7.3 % HEMOGLOBIN [id number] 00:00:00 Test Item Value Reference Range Interpretation Comments HEMOGLOBIN A1c (test code = 46654) 7.3 % HEMOGLOBIN [id number] 00:00:00 Test Item Value Reference Range Interpretation Comments HEMOGLOBIN A1c (test code = 96994) 7.3 % COMPREHENSIVE METABOLIC [id number] 00:00:00 Test Item Value Reference Range Interpretation Comments GLUCOSE (test code = 2217) 113 MG/DL BUN (test code = 2208) 22 MG/DL CREATININE (test code = 2214) 0.9 MG/DL eGFR AMER. (test code 85 ML/MIN/1.73 = 59298) eGFR NON- AMER. (test 70 ML/MIN/1.73 code = 85178) CALCULATED BUN/CREAT (test 24 RATIO code = [...] code = 2219) 24 U/L COMPREHENSIVE METABOLIC [id number] 00:00:00 Test Item Value Reference Range Interpretation Comments GLUCOSE (test code = 2217) 113 MG/DL BUN (test code = 2208) 22 MG/DL CREATININE (test code = 2214) 0.9 MG/DL eGFR AMER. (test code 85 ML/MIN/1.73 = 00274) eGFR NON- AMER. (test 70 ML/MIN/1.73 code = 30244) CALCULATED BUN/CREAT (test 24 RATIO code = [...] code = 2219) 24 U/L CBC W/AUTO [id number] 00:00:00 Test Item Value Reference Range Interpretation [...] code = 1015) 270 K/UL CBC W/AUTO [id number] 00:00:00 Test Item Value Reference Range Interpretation [...] code = 1015) 270 K/UL CBC W/AUTO [id number] 00:00:00 Test Item Value Reference Range Interpretation [...] (test code = 1015) 270 K/UL HEMOGLOBIN [id number] 00:00:00 Test Item Value Reference Range Interpretation Comments HEMOGLOBIN A1c (test code = 75547) 7.3 % HEMOGLOBIN [id number] 00:00:00 Test Item Value Reference Range Interpretation Comments HEMOGLOBIN A1c (test code = 37466) 7.3 % HEMOGLOBIN [id number] 00:00:00 Test Item Value Reference Range Interpretation Comments HEMOGLOBIN A1c (test code = 81133) 7.3 % COMPREHENSIVE METABOLIC [id number] 00:00:00 Test Item Value Reference Range Interpretation Comments GLUCOSE (test code = 2217) 113 MG/DL BUN (test code = 2208) 22 MG/DL CREATININE (test code = 2214) 0.9 MG/DL eGFR AMER. (test code 85 ML/MIN/1.73 = 65693) eGFR NON- AMER. (test 70 ML/MIN/1.73 code = 76750) CALCULATED BUN/CREAT (test 24 RATIO code = [...] code = 2219) 24 U/L COMPREHENSIVE METABOLIC [id number] 00:00:00 Test Item Value Reference Range Interpretation Comments GLUCOSE (test code = 2217) 113 MG/DL BUN (test code = 2208) 22 MG/DL CREATININE (test code = 2214) 0.9 MG/DL eGFR AMER. (test code 85 ML/MIN/1.73 = 09626) eGFR NON- AMER. (test 70 ML/MIN/1.73 code = 45366) CALCULATED BUN/CREAT (test 24 RATIO code = [...] code = 2219) 24 U/L CBC W/AUTO [id number] 00:00:00 Test Item Value Reference Range Interpretation [...] code = 1015) 270 K/UL CBC W/AUTO [id number] 00:00:00 Test Item Value Reference Range Interpretation [...] code = 1015) 270 K/UL CBC W/AUTO [id number] 00:00:00 Test Item Value Reference Range Interpretation [...] (test code = 1015) 270 K/UL HEMOGLOBIN [id number] 00:00:00 Test Item Value Reference Range Interpretation Comments HEMOGLOBIN A1c (test code = 22112) 7.3 % HEMOGLOBIN [id number] 00:00:00 Test Item Value Reference Range Interpretation Comments HEMOGLOBIN A1c (test code = 21954) 7.3 % HEMOGLOBIN [id number] 00:00:00 Test Item Value Reference Range Interpretation Comments HEMOGLOBIN A1c (test code = 94348) 7.3 % COMPREHENSIVE METABOLIC [id number] 00:00:00 Test Item Value Reference Range Interpretation Comments GLUCOSE (test code = 2217) 113 MG/DL BUN (test code = 2208) 22 MG/DL CREATININE (test code = 2214) 0.9 MG/DL eGFR AMER. (test code 85 ML/MIN/1.73 = 27283) eGFR NON- AMER. (test 70 ML/MIN/1.73 code = 38695) CALCULATED BUN/CREAT (test 24 RATIO code = [...] code = 2219) 24 U/L COMPREHENSIVE METABOLIC [id number] 00:00:00 Test Item Value Reference Range Interpretation Comments GLUCOSE (test code = 2217) 113 MG/DL BUN (test code = 2208) 22 MG/DL CREATININE (test code = 2214) 0.9 MG/DL eGFR AMER. (test code 85 ML/MIN/1.73 = 93198) eGFR NON- AMER. (test 70 ML/MIN/1.73 code = 41141) CALCULATED BUN/CREAT (test 24 RATIO code = [...] code = 2219) 24 U/L CBC W/AUTO [id number] 00:00:00 Test Item Value Reference Range Interpretation [...] code = 1015) 270 K/UL CBC W/AUTO [id number] 00:00:00 Test Item Value Reference Range Interpretation [...] code = 1015) 270 K/UL CBC W/AUTO [id number] 00:00:00 Test Item Value Reference Range Interpretation [...] (test code = 1015) 270 K/UL HEMOGLOBIN [id number] 00:00:00 Test Item Value Reference Range Interpretation Comments HEMOGLOBIN A1c (test code = 24941) 7.3 % HEMOGLOBIN [id number] 00:00:00 Test Item Value Reference Range Interpretation Comments HEMOGLOBIN A1c (test code = 38211) 7.3 % HEMOGLOBIN [id number] 00:00:00 Test Item Value Reference Range Interpretation Comments HEMOGLOBIN A1c (test code = 37397) 7.3 % COMPREHENSIVE METABOLIC [id number] 00:00:00 Test Item Value Reference Range Interpretation Comments GLUCOSE (test code = 2217) 113 MG/DL BUN (test code = 2208) 22 MG/DL CREATININE (test code = 2214) 0.9 MG/DL eGFR AMER. (test code 85 ML/MIN/1.73 = 90057) eGFR NON- AMER. (test 70 ML/MIN/1.73 code = 04867) CALCULATED BUN/CREAT (test 24 RATIO code = [...] code = 2219) 24 U/L COMPREHENSIVE METABOLIC [id number] 00:00:00 Test Item Value Reference Range Interpretation Comments GLUCOSE (test code = 2217) 113 MG/DL BUN (test code = 2208) 22 MG/DL CREATININE (test code = 2214) 0.9 MG/DL eGFR AMER. (test code 85 ML/MIN/1.73 = 73316) eGFR NON- AMER. (test 70 ML/MIN/1.73 code = 97957) CALCULATED BUN/CREAT (test 24 RATIO code = [...] code = 2219) 24 U/L CBC W/AUTO [id number] 00:00:00 Test Item Value Reference Range Interpretation [...] code = 1015) 270 K/UL CBC W/AUTO [id number] 00:00:00 Test Item Value Reference Range Interpretation [...] code = 1015) 270 K/UL CBC W/AUTO [id number] 00:00:00 Test Item Value Reference Range Interpretation [...] (test code = 1015) 270 K/UL HEMOGLOBIN [id number] 00:00:00 Test Item Value Reference Range Interpretation Comments HEMOGLOBIN A1c (test code = 82350) 7.3 % HEMOGLOBIN [id number] 00:00:00 Test Item Value Reference Range Interpretation Comments HEMOGLOBIN A1c (test code = 81754) 7.3 % HEMOGLOBIN [id number] 00:00:00 Test Item Value Reference Range Interpretation Comments HEMOGLOBIN A1c (test code = 65132) 7.3 % COMPREHENSIVE METABOLIC [id number] 00:00:00 Test Item Value Reference Range Interpretation Comments GLUCOSE (test code = 2217) 113 MG/DL BUN (test code = 2208) 22 MG/DL CREATININE (test code = 2214) 0.9 MG/DL eGFR AMER. (test code 85 ML/MIN/1.73 = 53047) eGFR NON- AMER. (test 70 ML/MIN/1.73 code = 54214) CALCULATED BUN/CREAT (test 24 RATIO code = [...] code = 2219) 24 U/L COMPREHENSIVE METABOLIC [id number] 00:00:00 Test Item Value Reference Range Interpretation Comments GLUCOSE (test code = 2217) 113 MG/DL BUN (test code = 2208) 22 MG/DL CREATININE (test code = 2214) 0.9 MG/DL eGFR AMER. (test code 85 ML/MIN/1.73 = 87648) eGFR NON- AMER. (test 70 ML/MIN/1.73 code = 58328) CALCULATED BUN/CREAT (test 24 RATIO code = [...] code = 2219) 24 U/L CBC W/AUTO [id number] 00:00:00 Test Item Value Reference Range Interpretation [...] code = 1015) 270 K/UL CBC W/AUTO [id number] 00:00:00 Test Item Value Reference Range Interpretation [...] code = 1015) 270 K/UL CBC W/AUTO [id number] 00:00:00 Test Item Value Reference Range Interpretation [...] (test code = 1015) 270 K/UL HEMOGLOBIN [id number] 00:00:00 Test Item Value Reference Range Interpretation Comments HEMOGLOBIN A1c (test code = 18561) 7.3 % HEMOGLOBIN [id number] 00:00:00 Test Item Value Reference Range Interpretation Comments HEMOGLOBIN A1c (test code = 12361) 7.3 % HEMOGLOBIN [id number] 00:00:00 Test Item Value Reference Range Interpretation Comments HEMOGLOBIN A1c (test code = 70873) 7.3 % COMPREHENSIVE METABOLIC [id number] 00:00:00 Test Item Value Reference Range Interpretation Comments GLUCOSE (test code = 2217) 113 MG/DL BUN (test code = 2208) 22 MG/DL CREATININE (test code = 2214) 0.9 MG/DL eGFR AMER. (test code 85 ML/MIN/1.73 = 14815) eGFR NON- AMER. (test 70 ML/MIN/1.73 code = 75057) CALCULATED BUN/CREAT (test 24 RATIO code = [...] code = 2219) 24 U/L COMPREHENSIVE METABOLIC [id number] 00:00:00 Test Item Value Reference Range Interpretation Comments GLUCOSE (test code = 2217) 113 MG/DL BUN (test code = 2208) 22 MG/DL CREATININE (test code = 2214) 0.9 MG/DL eGFR AMER. (test code 85 ML/MIN/1.73 = 85570) eGFR NON- AMER. (test 70 ML/MIN/1.73 code = 39214) CALCULATED BUN/CREAT (test 24 RATIO code = [...] code = 2219) 24 U/L CBC W/AUTO [id number] 00:00:00 Test Item Value Reference Range Interpretation [...] code = 1015) 270 K/UL CBC W/AUTO [id number] 00:00:00 Test Item Value Reference Range Interpretation [...] code = 1015) 270 K/UL CBC W/AUTO [id number] 00:00:00 Test Item Value Reference Range Interpretation [...] (test code = 1015) 270 K/UL HEMOGLOBIN [id number] 00:00:00 Test Item Value Reference Range Interpretation Comments HEMOGLOBIN A1c (test code = 72927) 7.3 % HEMOGLOBIN [id number] 00:00:00 Test Item Value Reference Range Interpretation Comments HEMOGLOBIN A1c (test code = 82040) 7.3 % HEMOGLOBIN [id number] 00:00:00 Test Item Value Reference Range Interpretation Comments HEMOGLOBIN A1c (test code = 61788) 7.3 % COMPREHENSIVE METABOLIC [id number] 00:00:00 Test Item Value Reference Range Interpretation Comments GLUCOSE (test code = 2217) 113 MG/DL BUN (test code = 2208) 22 MG/DL CREATININE (test code = 2214) 0.9 MG/DL eGFR AMER. (test code 85 ML/MIN/1.73 = 46173) eGFR NON- AMER. (test 70 ML/MIN/1.73 code = 54289) CALCULATED BUN/CREAT (test 24 RATIO code = [...] code = 2219) 24 U/L CBC W/AUTO [id number] 00:00:00 Test Item Value Reference Range Interpretation [...] code = 1015) 270 K/UL CBC W/AUTO [id number] 00:00:00 Test Item Value Reference Range Interpretation [...] (test code = 1015) 270 K/UL HEMOGLOBIN [id number] 00:00:00 Test Item Value Reference Range Interpretation Comments HEMOGLOBIN A1c (test code = 15946) 7.3 % HEMOGLOBIN [id number] 00:00:00 Test Item Value Reference Range Interpretation Comments HEMOGLOBIN A1c (test code = 91174) 7.3 % COMPREHENSIVE METABOLIC [id number] 00:00:00 Test Item Value Reference Range Interpretation Comments GLUCOSE (test code = 2217) 113 MG/DL BUN (test code = 2208) 22 MG/DL CREATININE (test code = 2214) 0.9 MG/DL eGFR AMER. (test code 85 ML/MIN/1.73 = 18019) eGFR NON- AMER. (test 70 ML/MIN/1.73 code = 73511) CALCULATED BUN/CREAT (test 24 RATIO code = [...] code = 2219) 24 U/L COMPREHENSIVE METABOLIC [id number] 00:00:00 Test Item Value Reference Range Interpretation Comments GLUCOSE (test code = 2217) 113 MG/DL BUN (test code = 2208) 22 MG/DL CREATININE (test code = 2214) 0.9 MG/DL eGFR AMER. (test code 85 ML/MIN/1.73 = 06877) eGFR NON- AMER. (test 70 ML/MIN/1.73 code = 10108) CALCULATED BUN/CREAT (test 24 RATIO code = [...] code = 2219) 24 U/L CBC W/AUTO [id number] 00:00:00 Test Item Value Reference Range Interpretation [...] code = 1015) 270 K/UL CBC W/AUTO [id number] 00:00:00 Test Item Value Reference Range Interpretation [...] code = 1015) 270 K/UL CBC W/AUTO [id number] 00:00:00 Test Item Value Reference Range Interpretation [...] (test code = 1015) 270 K/UL HEMOGLOBIN [id number] 00:00:00 Test Item Value Reference Range Interpretation Comments HEMOGLOBIN A1c (test code = 87849) 7.3 % HEMOGLOBIN [id number] 00:00:00 Test Item Value Reference Range Interpretation Comments HEMOGLOBIN A1c (test code = 73473) 7.3 % HEMOGLOBIN [id number] 00:00:00 Test Item Value Reference Range Interpretation Comments HEMOGLOBIN A1c (test code = 54890) 7.3 % COMPREHENSIVE METABOLIC [id number] 00:00:00 Test Item Value Reference Range Interpretation Comments GLUCOSE (test code = 2217) 113 MG/DL BUN (test code = 2208) 22 MG/DL CREATININE (test code = 2214) 0.9 MG/DL eGFR AMER. (test code 85 ML/MIN/1.73 = 66495) eGFR NON- AMER. (test 70 ML/MIN/1.73 code = 72293) CALCULATED BUN/CREAT (test 24 RATIO code = [...] code = 2219) 24 U/L COMPREHENSIVE METABOLIC [id number] 00:00:00 Test Item Value Reference Range Interpretation Comments GLUCOSE (test code = 2217) 113 MG/DL BUN (test code = 2208) 22 MG/DL CREATININE (test code = 2214) 0.9 MG/DL eGFR AMER. (test code 85 ML/MIN/1.73 = 56516) eGFR NON- AMER. (test 70 ML/MIN/1.73 code = 26066) CALCULATED BUN/CREAT (test 24 RATIO code = [...] code = 2219) 24 U/L CBC W/AUTO [id number] 00:00:00 Test Item Value Reference Range Interpretation [...] code = 1015) 270 K/UL CBC W/AUTO [id number] 00:00:00 Test Item Value Reference Range Interpretation [...] code = 1015) 270 K/UL CBC W/AUTO [id number] 00:00:00 Test Item Value Reference Range Interpretation [...] (test code = 1015) 270 K/UL HEMOGLOBIN [id number] 00:00:00 Test Item Value Reference Range Interpretation Comments HEMOGLOBIN A1c (test code = 98969) 7.3 % HEMOGLOBIN [id number] 00:00:00 Test Item Value Reference Range Interpretation Comments HEMOGLOBIN A1c (test code = 24410) 7.3 % HEMOGLOBIN [id number] 00:00:00 Test Item Value Reference Range Interpretation Comments HEMOGLOBIN A1c (test code = 45278) 7.3 % COMPREHENSIVE METABOLIC [id number] 00:00:00 Test Item Value Reference Range Interpretation Comments GLUCOSE (test code = 2217) 113 MG/DL BUN (test code = 2208) 22 MG/DL CREATININE (test code = 2214) 0.9 MG/DL eGFR AMER. (test code 85 ML/MIN/1.73 = 68005) eGFR NON- AMER. (test 70 ML/MIN/1.73 code = 91964) CALCULATED BUN/CREAT (test 24 RATIO code = [...] code = 2219) 24 U/L COMPREHENSIVE METABOLIC [id number] 00:00:00 Test Item Value Reference Range Interpretation Comments GLUCOSE (test code = 2217) 113 MG/DL BUN (test code = 2208) 22 MG/DL CREATININE (test code = 2214) 0.9 MG/DL eGFR AMER. (test code 85 ML/MIN/1.73 = 89484) eGFR NON- AMER. (test 70 ML/MIN/1.73 code = 81213) CALCULATED BUN/CREAT (test 24 RATIO code = [...] code = 2219) 24 U/L CBC W/AUTO [id number] 00:00:00 Test Item Value Reference Range Interpretation [...] code = 1015) 270 K/UL CBC W/AUTO [id number] 00:00:00 Test Item Value Reference Range Interpretation [...] code = 1015) 270 K/UL CBC W/AUTO [id number] 00:00:00 Test Item Value Reference Range Interpretation [...] (test code = 1015) 270 K/UL HEMOGLOBIN [id number] 00:00:00 Test Item Value Reference Range Interpretation Comments HEMOGLOBIN A1c (test code = 99950) 7.3 % HEMOGLOBIN [id number] 00:00:00 Test Item Value Reference Range Interpretation Comments HEMOGLOBIN A1c (test code = 00637) 7.3 % HEMOGLOBIN [id number] 00:00:00 Test Item Value Reference Range Interpretation Comments HEMOGLOBIN A1c (test code = 91442) 7.3 % Notes Date/Time Note Provider Source 2023-02-17 Formatting of this note might be differe nt from the original. Shanika Segal 16:33:36-00:00 Patient here for c/o chronic , severe yeast infection with burning and pain. She was seen in the ER last 02/09/23, [facility] Electronically signed by Shanika Ospina LVN at 0 02/17/2023 4:34 PM CDT 2021-08-02 [facility] 21:55:00-00:00 [facility] DT Operative Note REPORT#:[id number] REPORT STATUS: Signed DATE:08/02/21 TIME: 2154 PATIENT: MARGE FRANCOE UNIT #: [id number] ROOM/BED: : 78 AGE: 41 SEX: F ATTEND: Bebeto Quiroga MD ADM AUTHOR: Bebeto Quiroga MD * ALL edits or amendments must be made on the [employer]/computer document * Operative Report Operative Note Note: DATE OF SERVICE: 07/31/21 PREOPERATIVE DIAGNOSIS: left volar wrist ganglio n cyst POSTOPERATIVE DIAGNOSIS: left volar wrist gangli on cyst OPERATION PERFORMED: left volar wrist ganglion c yst excision SURGEON: Bebeto Quiroga TUG BOAT CAPTAIN SURGEON: Diaz simmons ANESTHESIA: general with local [...] was then prepped and draped in the [facility] sterile fashion. The arm was then exsanguinated [...] Quiroga MD on 07/12 09/29 at 2156 [facility] #:[id number] END OF REPORT 2020-02-13 [id number] 22:19:[facility]-00:00 [address] [address] PATIENT NAME: Marge Franco ADMIT DATE: 0 ACCOUNT NO: [id number] ROOM NO: AGE: 40 REPORT TYPE: HISTORY AND PHYSICAL SEX: F ADMITTING PHYSICIAN: ATTENDING PHYSICIAN:Judi Hodge DO ADMISSION DATE: 02/13/2020 HISTORY OF PRESENT ILLNESS: The patient is a 40- year-old female who is status post a right posterior tibial tendon reconstruct ion with debridement on 01/16/2020 at [facility]. Today, she was walking the stairs, felt a pop on the back of her operative leg in t he Achilles area and felt significant pain. She was brought to [facility] for evaluation. Presently in [facility], she is in significant pain and is [...] By: Judi Hodge DO WT: HP:DANY/NEYMAR/GM Conf#: [id number]/MAURICIO#: [id number] Authenticated by Judi Hodge DO On 0 07:57:56 AM Electronically Signed by Judi Hodge DO on 0 03/17/20 at 0758 PATIENT NAME: Marge Franco 6541 2020-01-16 [id number] [facility] 12:10:00-00:[address] [place] [id number] PATIENT NAME: MARGE FRANCO ADMIT DREW E: 01/16/20 ACCOUNT NO: [id number] ROOM NO: AGE: 39 REPORT TYPE: OPERATIVE [...] Achilles lengtheni ng. SURGEON: Elbert Wilson MD TUG BOAT CAPTAIN: LINDSAY Palma ANESTHESIA: General LMA with intraoperative [...] ligaments that were plicated with #2 FiberWire dublaf-ob-ltiji sutures. Once this was complete, a small [...] By: Elbert Wilson MD WT: OP:DANY/JENNY/GM Conf#: [id number]/DID#: [id number] Authenticated by Elbert Wilson MD On 01/19/2020 06:47:49 AM Electronically Signed by Elbert Wilson MD on at 0648 PATIENT NAME: MARGE FRANCO "
[2023-03-22] MEDS ORDERED: Magnesium Sulfate 2gm IVPB 2 G/50 ML BAG IV ONE (17:51)
--- NOTE | 2023-03-22 19:17 | EDPHYS ---
Physician Documentation [facility] Name: Valentina Franco Age: 43 yrs Sex: Female : 1980 Arrival Date: 03/22/2023 Time: 16:12 Bed 4 Private MD: ED Physician Johan Giron HPI: 03/22 16:35 This 43 yrs old Female presents to ER via Ambulatory with complaints of snw Abnormal Lab Results. 16:35 Onset: The symptoms/episode began/occurred acutely. Associated signs and symptoms: snw Pertinent positives: fatigue. It is unknown whether or not the patient has had similar symptoms in the past. The patient has been recently seen by a physician: the patient's primary care provider, yesterday, had labs drawn yesterday, Sandra recommended pt f/u PCP as it showed CARLOS. 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 - Social history:: Smoking status: Patient denies any tobacco usage or history of. ROS: 16:35 Eyes: Negative for injury, pain, redness, and discharge, ENT: Negative for injury, snw pain, and discharge, Neck: Negative for injury, pain, and swelling, Cardiovascular: Negative for chest pain, palpitations, and edema, Respiratory: Negative for shortness of breath, cough, wheezing, and pleuritic chest pain, Abdomen/GI: Negative for abdominal pain, nausea, vomiting, diarrhea, and constipation, Back: Negative for injury and pain, : Negative for injury, bleeding, discharge, and swelling, MS/Extremity: Negative for injury and deformity, Skin: Negative for injury, rash, and discoloration, Neuro: Negative for headache, weakness, numbness, tingling, and seizure, Psych: Negative for depression, anxiety, suicide ideation, homicidal ideation, and hallucinations. 16:35 Constitutional: Positive for fatigue, malaise. Exam: 16:35 Constitutional: This is a well developed, well nourished patient who is awake, alert, snw and in no acute distress. Head/Face: Normocephalic, atraumatic. Eyes: Pupils equal round and reactive to light, extra-ocular motions intact. Lids and lashes normal. Conjunctiva and sclera are non-icteric and not injected. Cornea within normal limits. Periorbital areas with no swelling, redness, or edema. ENT: Nares patent. No nasal discharge, no septal abnormalities noted. Tympanic membranes are normal and external auditory canals are clear. Oropharynx with no redness, swelling, or masses, exudates, or evidence of obstruction, uvula midline. Mucous membranes moist. Neck: Trachea midline, no thyromegaly or masses palpated, and no cervical lymphadenopathy. Supple, full range of motion without nuchal rigidity, or vertebral point tenderness. No Meningismus. Chest/axilla: Normal chest wall appearance and motion. Nontender with no deformity. No lesions are appreciated. Cardiovascular: Regular rate and rhythm with a normal S1 and S2. No gallops, murmurs, or rubs. Normal PMI, no JVD. No pulse deficits. Respiratory: Lungs have equal breath sounds bilaterally, clear to auscultation and percussion. No rales, rhonchi or wheezes noted. No increased work of breathing, no retractions or nasal flaring. Abdomen/GI: Soft, non-tender, with normal bowel sounds. No distension or tympany. No guarding or rebound. No evidence of tenderness throughout. Back: No spinal tenderness. No costovertebral tenderness. Full range of motion. Skin: Warm, dry with normal turgor. Normal color with no rashes, no lesions, and no evidence of cellulitis. MS/ Extremity: Pulses equal, no cyanosis. Neurovascular intact. Full, normal range of motion. Neuro: Awake and alert, GCS 15, oriented to person, place, time, and situation. Cranial nerves II-XII grossly intact. Motor strength 5/5 in all extremities. Sensory grossly intact. Cerebellar exam normal. Normal gait. Psych: Awake, alert, with orientation to person, place and time. Behavior, mood, and affect are within normal limits. Vital Signs: 16:28 BP 107 / 68; Pulse 96; Resp 18; Temp 98.5; Pulse Ox 100% ; Height 5 ft. 4 in. ; ap3 17:00 BP 97 / 60; Pulse 81; Resp 18; Pulse Ox 100% ; cm10 18:00 BP 105 / 70; Pulse 80; Resp 18; Pulse Ox 100% on R/A; cm10 19:00 BP 109 / 56; Pulse 76; Resp 18; Pulse Ox 100% ; cm10 19:29 BP 98 / 60; Pulse 74; Resp 18; Pulse Ox 100% ; cm10 MDM: 16:22 Patient medically screened. snw 16:37 Differential diagnosis: CARLOS, anemia, chronic disease. Data reviewed: vital signs, snw nurses notes, lab test result(s). Counseling: I had a detailed discussion with the patient and/or guardian regarding the historical points, exam findings, and any diagnostic results supporting the discharge/admit diagnosis, lab results, radiology results, the need for outpatient follow up, to return to the emergency department if symptoms worsen or persist or if there are any questions or concerns that arise at home. Special discussion: Based on the history and exam findings, there is no indication for further emergent testing or inpatient evaluation. 19:13 Response to treatment: the patient's symptoms have mildly improved after treatment. 03/22 16:35 Order name: Basic Metabolic Panel; Complete Time: 17:36 03/22 16:35 Order name: CBC with Diff; Complete Time: 17:03 03/22 16:35 Order name: LFT's; Complete Time: 17:36 03/22 16:35 Order name: Magnesium; Complete Time: 17:36 03/22 16:35 Order name: NT PRO-BNP; Complete Time: 17:36 03/22 16:35 Order name: PT-INR; Complete Time: 17:03 03/22 16:35 Order name: Troponin HS; Complete Time: 17:36 03/22 16:35 Order name: Phosphorus; Complete Time: 17:36 03/22 16:35 Order name: Uric Acid; Complete Time: 17:36 03/22 16:35 Order name: TSH; Complete Time: 17:36 03/22 16:35 Order name: Lipid Profile; Complete Time: 17:36 03/22 16:51 Order name: Urine W/Microscopic (UAM); Complete Time: 17:16 snw 03/22 17:28 Order name: LDL, Direct; Complete Time: 17:36 EDMS 03/22 16:35 Order name: XRAY Chest (1 view); Complete Time: 17:37 snw 03/22 16:35 Order name: EKG; Complete Time: 16:36 snw 03/22 16:35 Order name: Cardiac monitoring; Complete Time: 16:50 snw 03/22 16:35 Order name: EKG - Nurse/Tech; Complete Time: 16:50 snw 03/22 16:35 Order name: IV Saline Lock; Complete Time: 16:51 snw 03/22 16:35 Order name: Labs collected and sent; Complete Time: 16:51 snw 03/22 16:35 Order name: O2 Per Protocol; Complete Time: 16:51 snw 03/22 16:35 Order name: O2 Sat Monitoring; Complete Time: 16:51 snw EC:50 Rate is 87 beats/min. Rhythm is regular. QRS [place] is Normal. CA interval is normal. QT snw interval is normal. No Q waves. Clinical impression: NSR w/ Non-specific ST/T Changes. Administered Medications: 16:50 Drug: NS 0.9% IV 1000 ml Route: IV; Rate: 125 ml/hr; Site: right antecubital; cm10 17:50 Drug: Magnesium Sulfate IVPB 2 grams Route: IVPB; Infused Over: 2 hrs; Site: right nj1 antecubital; Disposition Summary: 03/22/23 19:16 Discharge Ordered Location: Home snw Condition: Stable snw Diagnosis - Hypomagnesemia snw Followup: snw - With: Emergency Department - When: As needed - Reason: Worsening of condition Followup: snw - With: Private Physician - When: 2 - 3 days - Reason: Recheck today's complaints, Continuance of care, Re-evaluation by your physician Discharge Instructions: - Discharge Summary Sheet snw - Hypomagnesemia snw Forms: - Medication Reconciliation Form snw - Thank You Letter snw - Antibiotic Education snw - Prescription Opioid Use snw - Patient Portal Instructions snw - Leadership Thank You Letter snw Signatures: Dispatcher [employer] EDNona Hamm FNP-C SOFTWARE DESIGN MANAGER-Csnw Ashley Pace, RN RN ap3 Mariia Angel RN RN nj1 Loren Ortiz RN RN cm10 Corrections: (The following items were deleted from the chart) 17:08 16:52 Urinalysis+U.LAB.BRZ ordered. EDMS EDMS
--- NOTE | 2023-03-22 19:17 | ER ---
Nurse's Notes [facility] Name: Valentina Franco Age: 43 yrs Sex: Female : 1980 Arrival Date: 03/22/2023 Time: 16:12 Bed 4 Private MD: Diagnosis: Hypomagnesemia Presentation: 03/22 16:28 Chief complaint: Patient states: she has been sent by her PCP for lab results ap3 indicating decreased kidney function. patient denies any symptoms at this time. Coronavirus screen: At this time, the client does not indicate any symptoms associated with coronavirus-19. Ebola Screen: No symptoms or risks identified at this time. Initial Sepsis Screen: Does the patient meet any 2 criteria? No. Patient's initial sepsis screen is negative. Does the patient have a suspected source of infection? No. Patient's initial sepsis screen is negative. Risk Assessment: Do you want to hurt yourself or someone else? Patient reports no desire to harm self or others. Onset of symptoms is unknown. 16:28 Method Of Arrival: Ambulatory ap3 16:28 Acuity: CYNTHIA 3 ap3 Triage Assessment: 16:29 General: Appears in no apparent distress. Behavior is calm, cooperative, appropriate ap3 for age. Pain: Denies pain. Neuro: Level of Consciousness is awake, alert, obeys commands, Oriented to person, place, time, situation. Cardiovascular: Patient's skin is warm and dry. Respiratory: Airway is patent Respiratory effort is even, unlabored, Respiratory pattern is regular, symmetrical. 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 - Social history:: Smoking status: Patient denies any tobacco usage or history of. Screenin:30 [facility] ED Fall Risk Assessment (Adult) History of falling in the last 3 months, ap3 including since admission No falls in past 3 months (0 pts). Abuse screen: Denies threats or abuse. Nutritional screening: No deficits noted. Tuberculosis screening: No symptoms or risk factors identified. Assessment: 17:02 General: Appears in no apparent distress. comfortable, Behavior is calm, cooperative. cm10 Pain: Denies pain. Neuro: No deficits noted. Level of Consciousness is awake, alert, obeys commands, Oriented to person, place, time, situation. Cardiovascular: No deficits noted. Heart tones present Capillary refill < 3 seconds Rhythm is sinus rhythm. Respiratory: No deficits noted. Airway is patent Respiratory effort is even, unlabored, Respiratory pattern is regular, symmetrical. GI: No deficits noted. Bowel sounds present X 4 quads. Abd is soft and non tender. : No deficits noted. Reports burning with urination. Derm: No deficits noted. Skin is intact, is healthy with good turgor, Skin is pink, warm \T\ dry. 19:00 Reassessment: No changes from previously documented assessment. Patient and/or family cm10 updated on plan of care and expected duration. Pain level reassessed. Patient is alert, oriented x 3, equal unlabored respirations, skin warm/dry/pink. Patient states feeling better. Patient states symptoms have improved. Vital Signs: 16:28 BP 107 / 68; Pulse 96; Resp 18; Temp 98.5; Pulse Ox 100% ; Height 5 ft. 4 in. ; ap3 17:00 BP 97 / 60; Pulse 81; Resp 18; Pulse Ox 100% ; cm10 18:00 BP 105 / 70; Pulse 80; Resp 18; Pulse Ox 100% on R/A; cm10 19:00 BP 109 / 56; Pulse 76; Resp 18; Pulse Ox 100% ; cm10 19:29 BP 98 / 60; Pulse 74; Resp 18; Pulse Ox 100% ; cm10 ED Course: 16:18 Patient arrived in ED. mr 16:22 N[facility] Ashby [facility]-C [facility]. snw 16:22 Johan Giron MD is Attending Physician. snw 16:29 Triage completed. ap3 16:30 Arm band placed on right wrist. ap3 16:32 Loren Ortiz, PETE is Primary Nurse. cm10 16:50 EKG done, by ED staff. tm3 16:50 Lipid Profile Sent. cm10 16:50 TSH Sent. cm10 16:50 Uric Acid Sent. cm10 16:50 Phosphorus Sent. cm10 16:51 Basic Metabolic Panel Sent. cm10 16:51 CBC with Diff Sent. cm10 16:51 LFT's Sent. cm10 16:51 Magnesium Sent. cm10 16:51 NT PRO-BNP Sent. cm10 16:51 PT-INR Sent. cm10 16:51 Troponin HS Sent. cm10 16:51 Initial lab(s) drawn, by ia, sent to lab. Urine collected: clean catch specimen. cm10 Inserted saline lock: 20 gauge in right antecubital area, using aseptic technique. Blood collected. 17:02 Patient has correct armband on for positive identification. Bed in low position. Call cm10 light in reach. Side rails up X2. Provided Education on: ED process and Procedures. Client placed on continuous cardiac and pulse oximetry monitoring. NIBP monitoring applied. Door closed. Lights dimmed. Warm blanket given. 17:16 XRAY Chest (1 view) In Process Unspecified. EDMS 19:31 No provider procedures requiring assistance completed. IV discontinued, intact, cm10 bleeding controlled, No redness/swelling at site. Pressure dressing applied. Administered Medications: 16:50 Drug: NS 0.9% IV 1000 ml Route: IV; Rate: 125 ml/hr; Site: right antecubital; cm10 17:50 Drug: Magnesium Sulfate IVPB 2 grams Route: IVPB; Infused Over: 2 hrs; Site: right nj1 antecubital; Medication: 17:02 VIS not applicable for this client. cm10 Outcome: 19:16 Discharge ordered by MD. kamara 19:31 Discharged to home ambulatory. cm10 19:31 Condition: good 19:31 Discharge instructions given to patient, Instructed on discharge instructions, follow up and referral plans. Demonstrated understanding of instructions, follow-up care. 19:31 Patient left the ED. cm10 Signatures: Dispatcher [employer] EDMS Ricki Guerrero Shelly, CREATIVE SERVICES DIRECTOR-C CREATIVE SERVICES DIRECTOR-Csnw Greta CaliAshley, RN RN ap3 Mariia Angel RN RN nj1 Loren Ortiz RN RN cm10
[2023-03-22 19:46] VITALS: TEMP 98.5; O2SAT 100
[2023-03-22 19:53] VITALS: BP 98/60
--- NOTE | 2023-03-23 14:55 | EKG ---
Test Date: 2023-03-22 Test Time: 16:48:29 Public Health Service Officer: DEEPAK MEASUREMENT RESULTS: Intervals: Rate: 87 SD: 156 QRSD: 84 QT: 326 QTc: 392 Hope: P: 39 SD: 156 QRS: 37 T: 51 INTERPRETIVE STATEMENTS: Normal sinus rhythm Cannot rule out Anterior infarct, age undetermined Abnormal ECG Compared to ECG 11/26/2022 08:45:25 Myocardial infarct finding now present Electronically Signed On 03-23-23 14:54:03 CDT by Mp Light
== END 2023-03-22 19:31 | disposition home or self-care (01) ==
LOC: ER 16:12
DX: E83.42 Hypomagnesemia (principal); R53.83 Other fatigue; R53.81 Other malaise; I10 Essential (primary) hypertension
CPT/HCPCS: 93005; 85025; 81001; 80048; 36415; 83721; 83735; 84100; 85610; 80061; 80076; 84550; 84443; 84484; 83880; 71045; 96374; 99284; J3475; J7030

== ENCOUNTER 2023-04-30 15:06 | Emergency (ER) | payer OTHER ==
[2011-11-15 23:42] VITALS: BP 159/90
[2023-04-30 15:50] LABS: Specific Gravity 1.026 (1.005-1.030); Urine Bacteria <20 /HPF (<20); Urine Bilirubin NEGATIVE (Negative); Urine Blood Negative (Negative); Urine Clarity Clear (Clear); Urine Color Yellow (Yellow); Urine Glucose 4+ (Over) (Negative); Urine Protein NEGATIVE (Negative); Urine RBC <5 /HPF (None Seen); Urine Urobilinogen Normal (Normal); Urine pH 6.5 (5.0-7.0)
[2023-04-30 15:59] LABS: SARS-CoV-2 Antigen Rapid Res Negative (Negative)
--- OUTSIDE RECORDS SUMMARY | 2023-04-30 16:06 | XMS REPORT | Continuity of Care Document ---
:1980 Author Organization [facility] t Address [address] [place] [address] Care Team Providers Name Role Phone [phone] Primary Care Physician Unavailable Bebeto Quiroga Attending Clinician Unavailable Elbert Wilson Attending Clinician Unavailable ORLY THORPE Attending Clinician Unavailable NETO PEOPLES Attending Clinician Unavailable MUNDO MCKEON Attending Clinician Unavailable NICOLÁS EID Attending Clinician Unavailable LAB90 Attending Clinician Unavailable AMNA CUTLER Attending Clinician Unavailable MD DONALD Attending Clinician Unavailable KAVYA BLOCK Attending Clinician Unavailable VALDEZ MINOR Attending Clinician Unavailable ARLENE RAIN I Attending Clinician Unavailable ZOYA GONZALEZ Attending Clinician Unavailable GUDELIA GARCIA Attending Clinician Unavailable Ngoc Tinajero MD Attending Clinician Gudelia Garcia DO Attending Clinician JUDI MCCLELLAND Attending Clinician Unavailable IVELISSE MORRISON Attending Clinician Unavailable Loni ANTISUBMARINE WEAPONS OFFICER, Katelyn Attending Clinician KATELYN IVEY Attending Clinician Unavailable FABIO ZAMORA Attending Clinician Unavailable YRIS HARRIS Attending Clinician Unavailable Doctor Unassigned, Landis Attending Clinician Unavailable Delvin FREEMAN, Leslie Monaco Attending Clinician MERI WRAY Attending Clinician Unavailable Robert Lutz MD Attending Clinician Meri Wray MD Attending Clinician Silvina Vallecillo MD Attending Clinician [phone] BEATRIZ EDUARDO Attending Clinician Unavailable Beatriz Eduardo NP Attending Clinician JN MILLER Attending Clinician Unavailable [...] Clinician Unavailable LILY DELEON Attending Clinician Unavailable STANISLAW SUN Attending Clinician Unavailable GALAN, ABHIJIT Attending Clinician Unavailable Kit Lopez Attending Clinician [...] Date Expiration Date S sally [employer] GENERIC [id number] 2019 00:00:00 [employer] MP CVS 9 [id number] 2022 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:00: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 [employer] COMMERCIAL [id number] 2022 OUT OF NETWORK 00:00:00 COMMERCIAL [id number] 2021 NON-CONTRACT 00:00:00 GENERIC Problems Condition Condition Condition Status Onset Resolution Last Treating Co mments Source Name Details Category Date Date Treatment Clinician Date Dizziness Dizziness Disease Active 2022-07 Spencer sey 0-20 Seybold 00:00: - 00 Externa l Other Other Disease Active 2022-07 Andreea fatigue fatigue 0-20 Seybold 00:00: - 00 Externa l Hypotensio Hypotensio Disease Active 2022-07 K elsey n due to n due to 0-20 Seybol d drugs drugs 00:00: - 00 Externa l Renal Renal Disease Active Andreea insufficie insufficie 9-19 Se ybold ncy ncy 00:00: - 00 Externa l Congestive Congestive Disease Active K devi heart heart 9-17 Seybold failure, failure, 00:00: - unspecifie unspecifie 00 Ex terna d HF d HF l chronicity chronicity , , unspecifie unspecifie d heart d heart failure failure type type (multi (multi HCC) HCC) Generalize Generalize Disease Active U antonella d d 7-03 [place] abdominal [place] [facility] [place] Immunodefi Immunodefi Disease Active K devi ciency due ciency due 3-06 Se ybold to to 00:00: - conditions conditions 00 Ex terna classified classified l elsewhere elsewhere (multi (multi HCC) HCC) Gastroesop Gastroesop Disease Active K devi hageal hageal 2-28 Seybold reflux reflux 00:00: - disease disease 00 Externa without without l esophagiti esophagiti s s Hypertrigl Hypertrigl Disease Active K devi yceridemia yceridemia 2-28 Se ybold 00:00: - 00 Externa l Other Other Disease Active Andreea chronic chronic 2-28 Seybold pancreatit pancreatit 00:00: - is (multi is (multi 00 Exte rna HCC) HCC) l Primary Primary Disease Active Andreea hypertensi hypertensi 2-28 Se ybold on on 00:00: - 00 Externa l Urge Urge Disease Active Andreea incontinen incontinen 2-28 Se ybold ce of ce of 00:00: - urine urine 00 Externa l Depression Depression Disease Active K elseisaac with with 2-28 Seybold anxiety anxiety 00:00: - 00 Externa l DM type 2 DM type 2 Disease Active Spencer sey with with 2-28 Seybold diabetic diabetic 00:00: - mixed mixed 00 Externa hyperlipid hyperlipid l emia emia (multi (multi HCC) HCC) Hypertrigl Hypertrigl Disease Active U antonella yceridemia yceridemia 2-16 it y of 00:00: [place] [address] Medical Branch Fatty Fatty Disease Active Overview: Andreea liver liver 07-11 Formattin Seybold 00:00: g of this note Externa might be l different from the original. confirmed with US Essential Essential Disease Active Uni vers hypertensi hypertensi 5-26 it y of on on 00:: [place] [address] Medical Branch POTS POTS Disease Active Univers (postural (postural - ity of orthostati orthost[place] Medical tachycardi tachycardi Br anch a a syndrome) syndrome) Dyslipidem Dyslipidem Disease Active U nivers ia ia 5-26 ity of 00:00: Medical Branch Atypical Atypical Disease Active Unive rs chest pain chest pain 5-25 it y of 00:00: [facility] Pancreatit Pancreatit Disease Active U nivers is, is, 4-24 ity of recurrent recurrent 00:[place] Vulvar Vulvar Disease Active Methodi pain pain 5-14 st 00:00: Hospita 00 l Pyelonephr Pyelonephr Disease Active M ethodi itis itis 7- st 00:00: Hospita 00 l Pelvic Pelvic [...] surgical 1-30 ity of incision incision 00:00: [facility] Branch Mood Mood Disease Active Univers swings swings 1-30 ity of 00:00: [facility] Gestationa Gestationa Disease Active 2012-07 U nivers l l 2-21 ity of hypertensi hypertensi [place] Gestationa Gestationa Disease Active 2012-07 U nivers l l 2-21 ity of hypertensi hypertensi [place] Ventral Ventral Disease Active 2012-07 Univers hernia hernia 2-21 ity of 00:00: [facility] Branch paroxsymal paroxsyma Disease Active [...] the original. 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 Immune to Immune to Disease Active Uni vers varicella varicella 6 ity of 00:00: [place] 00 Medical Branch Morbid Morbid Disease Active [place] [facility] obesity obesity 3-02 ity of 00:00: [place] [...] 00 dic Hospita l alcohol FA Active [place] [facility]ES [facility]QU[facility] 07-30 [place] 00:00: Orthope 00 dic Hospita l tequila DA Active [place] hives [facility] -20 [place] 00:00: Orthope 00 dic Hospita l alcohol FA Active [place] [facility] 7 [place] 00:00: Orthope 00 dic Hospita l alcohol FA Active [place] HIVES TO [facility] TEQUILA 7- [place] 00:00: Orthope 00 dic Hospita l tequila DA Active [place] hives [facility] 7-02 [place] 00:00: [facility] 00 [facility] Cefpodox Propensi Active Other (See Eye and M ethodi dewayne ty to Comments) 8-[address] adverse 00:00: Swelling Hospita reaction 00 30 mins l s to after drug taking medicatio n alcohol FA Active [place] 2015-07 [facility] 09-06 [place] 00:00: Orthope 00 dic Hospita l alcohol FA Active [place] TURNS RED 2015-07 [facility] 09-06 [place] 00:00: Orthope 00 dic Hospita l NO KNOWN Drug Active Univers ALLERGIE Class ity of S [place] [facility] Family History Family Member Diagnosis Comments Start Date Stop Date Source Natural brother Diabetes [facility] Natural father [facility] Natural mother Diabetes [facility] Natural sister Diabetes [facility] Social History Social Habit Start Date Stop Date Quantity Comments Source Sexual orientation [facility] History SDOH Social Unive rsity of Connections [facility] Med ical Together Branch History SDOH Social Unive rsity of Connections [facility] History SDOH Social Unive rsity of Connections [place] [facility] Membership Branch History SDOH Social Unive rsity of Connections [place] [facility] Meetings Branch Gender identity [facility] History SDOH Social 2023-01-11 2023-01-11 5 Unive [...] Scarcity 00:00:00 00:00:00 [place] [facility] History SDKS 2023-01-11 2023-01-11 2 University o f Transport Med 00:00:00 00:00:00 [place] Medic al Branch History SDOH 2023-01-11 2023-01-11 2 University o f Transport Non-Med 00:00:00 00:00:00 [place] M edical Branch History SDKS 2023-01-11 2023-01-11 2 University o f Housing Unable to 00:00:00 00:00:00 [place] M edical Pay Branch History SDKS 2023-01-11 2023-01-11 1 University o f Housing Places 00:00:00 00:00:00 [facility] bonita Lived Branch History SDKS 2023-01-11 2023-01-11 2 University o f Housing Homeless 00:00:00 00:00:00 [facility] bimal Last Year Branch Education 2023-01-10 2023-01-10 14 University 00:00:00 00:00:00 [facility] Branch Exposure to 2022-10-24 2022-11-03 Not sure [facility] SARS-CoV-2 (event) 00:00:00 08:52:00 [facility] Tobacco use and 2022-09-07 2022-09-07 Smokeless Andreea Se ybold - exposure 00:00:00 00:00:00 tobacco non-user External Alcohol intake 2019-11-22 2019-11-22 .14 /d [facility] 00:00:00 00:00:00 Hospital History of Social 2019-11-22 2019-11-[address] function 00:00:00 00:00:00 Hospital History [facility] 2019-11-22 2019-11-22 2 [facility] Alcohol Frequency 00:00:00 00:00:00 Hospita l History [facility] 2019-11-22 2019-11-22 1 [facility] Alcohol Std Drinks 00:00:00 00:00:00 Hospit al History [facility] 2019-11-22 2019-11-22 1 [facility] Alcohol Binge 00:00:00 [...] Date Medication? Clinician (SIG) Name Name Lisinopril 2022-07- No 5mg Take 1 Mildred ey 5 MG oral 0-20 10-20 tablet (5 Seyb old Tablet 14:01: 00:00 mg total) - 29 :00 by mouth Externa daily. l Ferrous 2022-07 Yes 325mg Take 1 Andreea Sulfate 0-20 tablet Seybold (Iron) 325 13:52: (325 mg - (65 Fe) MG 57 total) by Exte rna oral Tablet mouth l daily (with breakfast) . Folic Acid 2022-07 Yes 400ug Take 1 Mildred ey 400 MCG 0-20 tablet Seybold oral Tablet 13:52: (400 mcg - 57 total) by Externa mouth l daily. Metformin 2022-07 Yes [id number] 1000mg Take 1 Andreea HCl 1000 MG 0-20 3 tablet Seybol d oral Tablet 00:00: (1,000 mg - 00 total) by Externa mouth in l the morning and 1 tablet (1,000 mg total) in the evening. Take with meals. Insulin 2022-07 Yes [id number] 100U Inject 100 Andreea Glargine 0-20 3 units into Seybo ld (Basaglar 00:00: the skin - KwikPen) 00 daily Externa 100 UNIT/ML (with l subcutaneou breakfast) s Solution . Pen-injecto r Trazodone 2022-07 Yes [id number] 150mg Take 1.5 Andreea HCl 100 MG 0-20 tablets Seybol d oral Tablet 00:00: (150 mg - 00 total) by Externa mouth l nightly. Farxiga 10 2022-07 Yes [id number] TAKE 1 Andreea MG oral 0-13 3 TABLET (10 Seybol d Tablet 00:00: MG) BY - 00 MOUTH Externa DAILY. l Trazodone 2022-07- No Andreea HCl 150 MG 0-03 10-20 Seybold oral Tablet 00:00: 00:00 - 00 :00 Externa l Folic Acid 2022-0 Yes 400ug Take 1 Mildred ey 400 MCG 9-19 tablet Seybold oral Tablet 16:20: (400 mcg - 27 total) by Externa mouth l daily. Ferrous 2022-0 Yes 325mg Take 1 Andreea Sulfate 9-19 tablet Seybold (Iron) 325 16:18: (325 mg - (65 Fe) MG 39 total) by Exte rna oral Tablet mouth l daily (with breakfast) . Lisinopril 0 Yes 5mg Take 1 Kelse y 5 MG oral 9-19 tablet (5 Seybo ld Tablet 15:57: mg total) - 33 by mouth Externa daily. l Fluoxetine 2022-0 Yes [id number] 40mg Take 1 Andreea HCl 40 MG 9-19 capsule Seybold oral 00:00: (40 mg - Capsule 00 total) by Externa mouth l daily. Insulin 2022-0 Yes [id number] 80U Inject 80 Andreea Glargine 9-19 3 units into Seybo ld (Basaglar 00:00: the skin - KwikPen) 00 daily Externa 100 UNIT/ML (with l subcutaneou breakfast) s Solution . Pen-injecto r Trazodone 2022-0 Yes [id number] 150mg Take 1.5 Andreea HCl 100 MG 9-19 tablets Seybol d oral Tablet 00:00: (150 mg - 00 total) by Externa mouth l nightly 1 1/2 tablets QD. Bupropion 2022-0 Yes [id number] 150mg Take 1 Andreea HCL XL 150 9-19 tablet Seybold MG OR TB24 00:00: (150 mg - 00 total) by Externa mouth l every morning. Fluoxetine 2022-0 Yes [id number] 40mg Take 1 Andreea HCl 40 MG 9-19 capsule Seybold oral 00:00: (40 mg - Capsule 00 total) by Externa mouth l daily. Bupropion 2022-0 Yes [id number] 150mg Take 1 Andreea HCL XL 150 9-19 tablet Seybold MG OR TB24 00:00: (150 mg - 00 total) by Externa mouth l every morning. Insulin 2022-0 2023- No [id number] 80U Inject 80 Andreea Glargine 9-19 10-20 3 units into Seyb old (Basaglar 00:00: 00:00 the skin - KwikPen) 00 :00 daily Externa 100 UNIT/ML (with l subcutaneou breakfast) s Solution . Pen-injecto r Trazodone 2022- No [id number] 150mg Take 1.5 Andreea HCl 100 MG 03-29-20 tablets Seybo ld oral Tablet 00:00: 00:00 (150 mg - 00 :00 total) by Externa mouth l nightly 1 1/2 tablets QD. Bupropion 2022- No Andreea HCL XL 150 -03-29 Seybold MG OR TB24 00:00: 00:00 - 00 :00 Externa l Lisinopril 0 Yes 5mg Take 1 Kelse y 5 MG oral 8-10 tablet (5 Seybo ld Tablet 16:33: mg total) - 29 by mouth Externa daily l Fluconazole 0 2022- No [id number] 150mg Take 1 Andreea 150 MG oral 8-10 - tablet Seybo ld Tablet 00:00: 00:00 (150 mg - 00 :00 total) by Externa mouth once l for 1 dose Fluconazole 2022-0 2022- Yes [id number] 150mg Take 1 Andreea 150 MG oral 8-10 -11 tablet Seybo ld Tablet 00:00: 04:59 (150 mg - 00 :00 total) by Externa mouth once l for 1 dose Meloxicam 2022-0 Yes [id number] TAKE 1 Andreea 15 MG oral 7-26 9107 TABLET BY Seyb old Tablet 00:00: MOUTH - 00 EVERY DAY Externa NEEDED l FOR PAIN Meloxicam 0 2022- No [id number] TAKE 1 Andreea 15 MG oral 7-26 - 9107 TABLET BY Sey bold Tablet 00:00: 00:00 MOUTH - 00 :00 EVERY DAY Externa NEEDED l FOR PAIN [place]-3 0 Yes 1{capsu Take 1 Unive rs Fatty 01-12 le} capsule by ity of Acids-Vitam 11:23: [...] 44 dose Medical ORAL) Branch doxycycline 2022- No [id number] 100mg Take 1 Univers hyclate 100 01-12 capsule by i ty of mg capsule 00:00: 04:59 mouth [place] 00 :00 every 12 Medical (twelve) Branch hours for 10 days. metroNIDAZO 2022- No [id number] 500mg Take 1 Univers LE 500 mg 01-12 tablet by ity of tablet 00:00: 04:59 mouth [place] 00 :00 every 12 Medical (twelve) Branch hours for 10 days. ondansetron 2022- No [id number] 4mg Take 1 Univers 4 mg 01-12 [...] dose Med ical mg on Tue Branch 01/11/23 at 0900, Until Discontinu ed, Routine fenofibrate Yes 134mg 134 mg, Un fabiana micronized 01-11 Oral, ity of (LOFIBRA) 14:00: DAILY, [place] capsule 134 00 First dose Me dical mg on Tue Branch 01/11/23 at 0900, Until Discontinu ed, Routine FLUoxetine [...] at 0800, Until Discontinu ed doxycycline 2022- No 100mg 100 mg, U nivers hyclate 01-10 [...] 1700, Until Discontinu ed, Routine cefOXitin 2022- No 2g 2 g, Univers in 01-1008 Intravenou ity of dextrose, 21:00: 20:59 s, Q6H [place] iso-osm 00 :00 ABX, 20 Medical (MEFOXIN) [...] 0.9% on Tue Branch (NS) 50 mL 7/3/23 at IV 1430, piggyback Until Discontinu ed, [...] 51 Starting Medica l 25 mL on 01/10/23 at 1108, Until Discontinu ed, [...] Routine, Pain (scale 1-3) iopamidol 2022- No [id number] 73mL 73 mL, Univers (ISOVUE 01-10 Intravenou [...] by mouth Externa daily l Spironolact 2022- No [id number] 100mg Take 1 Andreea one 100 MG 6-27 12-25 tablet Seybol d oral Tablet 00:00: 05:59 (100 mg - 00 :00 total) by Externa mouth at l bedtime With full glass of water. Spironolact 0 2022- No [id number] 100mg Take 1 Andreea one 100 MG 6-27 12-25 tablet Seybol d oral Tablet 00:00: 05:59 (100 mg - 00 :00 total) by Externa mouth at l bedtime With full glass of water. Spironolact 0 2022- No [id number] 100mg Take 1 Andreea one 100 MG 6-27 12-25 tablet Seybol d oral Tablet 00:00: 05:59 (100 mg - 00 :00 total) by Externa mouth at l bedtime With full glass of water. Spironolact 0 2022- No [id number] 100mg Take 1 Andreea one 100 MG 6-27 10-20 tablet Seybol d oral Tablet 00:00: 00:00 (100 mg - 00 :00 total) by Externa mouth at l bedtime With full glass of water. Trazodone 2022-0 Yes 1 1/2 Andreea HCl 100 MG 6-26 tablets QD Sey bold oral Tablet 00:00: - 00 Externa l Trazodone 2022-0 Yes 1 1/2 Andreea HCl 100 MG 6-26 tablets QD Sey bold oral Tablet 00:00: - 00 Externa l Trazodone 2022-0 2022- No 1 1/2 Andreea HCl 100 MG 6- 09-19 tablets QD Se ybold oral Tablet 00:00: 00:00 - 00 :00 Externa l Dapaglifloz 2022-0 2022- No 1{tbl} 1 tablet Andreea in 6-13 06-13 daily Seybold Propanediol 14:32: 00:00 - () 34 :00 Externa 10 MG oral l Tablet Lisinopril 2022-0 Yes 5mg Take 1 Kelse y 5 MG oral 6-13 tablet (5 Seybo ld Tablet 14:00: mg total) - 59 by mouth Externa daily l Ezetimibe 2022-0 Yes [id number] 10mg Take 1 K elsey 10 MG oral 6-13 tablet (10 Sey bold Tablet 00:00: mg total) - 00 by mouth Externa daily l Dapaglifloz 2022-0 Yes [id number] 1{tbl} Take 1 Andreea in 6-13 3 tablet by Seybold Propanediol 00:00: mouth - () 00 daily Externa 10 MG oral l Tablet Insulin 2022-0 Yes [id number] Inject 12 Andreea Aspart 6-13 3 units Plus Seybold (NovoLOG 00:00: sliding - FlexPen) 00 scale 2 Externa 100 UNIT/ML unit for l subcutaneou every 50 s Solution above 150 Pen-injecto (maximum r 70 units per day) Ezetimibe 3-0 Yes [id number] 10mg Take 1 K elsey 10 MG oral 6-13 tablet (10 Sey bold Tablet 00:00: mg total) - 00 by mouth Externa daily l Dapaglifloz 2022-0 Yes [id number] 1{tbl} Take 1 Andreea in 6-13 3 tablet by Seybold Propanediol 00:00: mouth - () 00 daily Externa 10 MG oral l Tablet Insulin 2022-0 Yes [id number] Inject 12 Andreea Aspart 6-13 3 units Plus Seybold (NovoLOG 00:00: sliding - FlexPen) 00 scale 2 Externa 100 UNIT/ML unit for l subcutaneou every 50 s Solution above 150 Pen-injecto (maximum r 70 units per day) Ezetimibe 0 Yes [id number] 10mg Take 1 K elsey 10 MG oral 6-13 tablet (10 Sey bold Tablet 00:00: mg total) - 00 by mouth Externa daily l Dapaglifloz Yes [id number] 1{tbl} Take 1 Andreea in 6-13 3 tablet by Seybold Propanediol 00:00: mouth - (Farxiga) 00 daily Externa 10 MG oral l Tablet Insulin Yes [id number] Inject 12 Andreea Aspart 6-13 3 units Plus Seybold (NovoLOG 00:00: sliding - FlexPen) 00 scale 2 Externa 100 UNIT/ML unit for l subcutaneou every 50 s Solution above 150 Pen-injecto (maximum r 70 units per day) Ezetimibe Yes [id number] 10mg Take 1 K elsey 10 MG oral 6-13 tablet (10 Sey bold Tablet 00:00: mg total) - 00 by mouth Externa daily l Insulin 0 Yes [id number] Inject 12 Andreea Aspart 6-13 3 units Plus Seybold (NovoLOG 00:00: sliding - FlexPen) 00 scale 2 Externa 100 UNIT/ML unit for l subcutaneou every 50 s Solution above 150 Pen-injecto (maximum r 70 units per day) Ezetimibe Yes [id number] 10mg Take 1 K elsey 10 MG oral 6-13 tablet (10 Sey bold Tablet 00:00: mg total) - 00 by mouth Externa daily l Insulin Yes [id number] Inject 12 Andreea Aspart 6-13 3 units [...] Take by Ke lsey e 10 MG 6-09 06-09 mouth Seybold oral Tablet 15:15: 00:00 - 25 :00 Externa l busPIRone 2022-0 2022- No 15mg Take 1 Kelse y HCl 15 MG 12-17- tablet (15 Sey bold oral Tablet 15:14: 00:00 mg total) - 39 :00 by mouth 2 Externa times l daily Oxybutynin 2022-0 3- No 10mg Take 1 Mildred ey Chloride 10 12-17- tablet (10 S eybold MG oral 15:12: 00:00 mg total) - TABLET SR 56 :00 by mouth Machine Tester a 24 HR daily l Pantoprazol 2022-0 2022- No 40mg Take 1 Spencer sey e Sodium 40 12-17 tablet (40 S eybold MG oral 15:12: 00:00 mg total) - Tablet 49 :00 by mouth Externa Delayed daily l Response Sucralfate 2022-0 2022- No 1g Take 1 Mildred ey 1 g oral 12-17 tablet (1 Seybo ld Tablet 15:12: 00:00 g total) - 11 :00 by mouth 4 Externa times l daily Dapaglifloz 2022-0 Yes 1{tbl} 1 tablet Andreea in 12-17 daily Seybold Propanediol 14:57: - (Farxiga) 18 Externa 10 MG oral l Tablet Lisinopril 2022-0 Yes 5mg Take 1 Kelse y 5 MG oral - tablet (5 Seybo ld Tablet 14:57: mg total) - 18 by mouth Externa daily l [place]-3 2022-0 Yes [id number] 1999{ca Take 2,000 Andreea 1000 MG - psule} capsules Seybol d oral 00:00: by mouth 2 - Capsule 00 times Externa daily l Trazodone 2022-0 Yes [id number] 50mg Take 1 Spencer sey HCl 50 MG - tablet (50 Seyb old oral Tablet 00:00: mg total) - 00 by mouth Externa nightly l Fluoxetine 2022-0 Yes [id number] 20mg Take 1 Andreea HCl 20 MG - capsule Seybold oral 00:00: (20 mg - Capsule 00 total) by Externa mouth l daily busPIRone 2022-0 Yes [id number] 10mg Take 1 K elsey HCl 10 MG 6-09 tablet (10 Seyb old oral Tablet 00:00: mg total) - 00 by mouth 2 Externa times l daily Trazodone 2022-0 Yes [id number] 50mg Take 1 Spencer sey HCl 50 MG 6-09 tablet (50 Seyb old oral Tablet 00:00: mg total) - 00 by mouth Externa nightly l Fluoxetine 2022-0 Yes [id number] 20mg Take 1 Andreea HCl 20 MG 6-09 capsule Seybold oral 00:00: (20 mg - Capsule 00 total) by Externa mouth l daily busPIRone 2022-0 Yes [id number] 10mg Take 1 K elsey HCl 10 MG 6-09 tablet (10 Seyb old oral Tablet 00:00: mg total) - 00 by mouth 2 Externa times l daily Icosapent 2022-0 Yes [id number] 2{capsu Take 2 Andreea Ethyl 1 g 6-09 le} capsules Seybol d oral 00:00: by mouth 2 - Capsule 00 times Externa daily l Fluoxetine 2022-0 Yes [id number] 20mg Take 1 Andreea HCl 20 MG 6-09 capsule Seybold oral 00:00: (20 mg - Capsule 00 total) by Externa mouth l daily busPIRone 2022-0 Yes [id number] 10mg Take 1 K elsey HCl 10 MG 6-09 tablet (10 Seyb old oral Tablet 00:00: mg total) - 00 by mouth 2 Externa times l daily Icosapent 2022-0 Yes [id number] 2{capsu Take 2 Andreea Ethyl 1 g 6-09 le} capsules Seybol d oral 00:00: by mouth 2 - Capsule 00 times Externa daily l Fluoxetine 2022-0 Yes [id number] 20mg Take 1 Andreea HCl 20 MG 6-09 capsule Seybold oral 00:00: (20 mg - Capsule 00 total) by Externa mouth l daily busPIRone 2022-0 Yes [id number] 10mg Take 1 K elsey HCl 10 MG 6-09 tablet (10 Seyb old oral Tablet 00:00: mg total) - 00 by mouth 2 Externa times l daily Icosapent 2022-0 Yes [id number] 2{capsu Take 2 Andreea Ethyl 1 g 6-09 le} capsules Seybol d oral 00:00: by mouth 2 - Capsule 00 times Externa daily l busPIRone 2022-0 Yes [id number] 10mg Take 1 K elsey HCl 10 MG 6-09 tablet (10 Seyb old oral Tablet 00:00: mg total) - 00 by mouth 2 Externa times l daily Icosapent 2022-0 Yes [id number] 2{capsu Take 2 Andreea Ethyl 1 g 6 le} capsules Seybol d oral 00:00: by mouth 2 - Capsule 00 times Externa daily l busPIRone 2022-0 Yes [id number] 10mg Take 1 K elsey HCl 10 MG 6-09 tablet (10 Seyb old oral Tablet 00:00: mg total) - 00 by mouth 2 Externa times l daily Icosapent 2022-0 Yes [id number] 2{capsu Take 2 Andreea Ethyl 1 g 6 le} capsules Seybol d oral 00:00: by mouth 2 - Capsule 00 times Externa daily l Fluoxetine 2022-0 2022- No [id number] 20mg Take 1 Andreea HCl 20 MG -03 19-19 capsule Seybol d oral 00:00: 00:00 (20 mg - Capsule 00 :00 total) by Externa mouth l daily Trazodone 2022-0 2022- No [id number] 50mg Take 1 Ke lsey HCl 50 MG 12-17-27 tablet (50 Sey bold oral Tablet 00:00: 00:00 mg total) - 00 :00 by mouth Externa nightly l Meloxicam 2022-0 Yes [id number] TAKE 1 Andreea 15 MG oral 5-25 9107 TABLET BY Seyb old Tablet 00:00: MOUTH - 00 EVERY DAY Externa NEEDED l FOR PAIN Meloxicam 2022-0 Yes [id number] TAKE 1 Andreea 15 MG oral 5-25 9107 TABLET BY Seyb old Tablet 00:00: MOUTH - 00 EVERY DAY Externa NEEDED l FOR PAIN Meloxicam 2022-0 Yes [id number] TAKE 1 Andreea 15 MG oral 5-25 [...] 2022-0 2022- No Andreea HCl 10 MG -12-17 Seybold oral Tablet 00:00: 00:00 - 00 :00 Externa l Fluoxetine 2022-0 2022- No Andreea HCl 20 MG -24 - Seybold oral 00:00: 00:00 - Capsule 00 :00 Externa l Trazodone 2022-0 2022- No Andreea HCl 50 MG -24 - Seybold oral Tablet 00:00: 00:00 - 00 :00 Externa l Promethazin 2022-0 Yes [id number] TAKE 1 TAB Andreea e HCl 5-21 (25 MG) BY Seybold (PHENERGAN) 00:00: MOUTH - 25 MG oral 00 EVERY 6 Machine Tester a Tablet HOURS l NEEDED FOR NAUSEA / VOMITING Promethazin 2022-0 Yes [id number] TAKE 1 TAB Andreea e HCl 5-21 (25 MG) BY Seybold (PHENERGAN) 00:00: MOUTH - 25 MG oral 00 EVERY 6 Machine Tester a Tablet HOURS l NEEDED FOR NAUSEA / VOMITING Promethazin 2022-0 Yes [id number] TAKE 1 TAB Andreea e HCl 5-21 (25 MG) BY Seybold (PHENERGAN) 00:00: MOUTH - 25 MG oral 00 EVERY 6 Machine Tester a Tablet HOURS l NEEDED FOR NAUSEA / VOMITING Promethazin 2022-0 Yes [id number] TAKE 1 TAB Andreea e HCl 5-21 (25 MG) BY Seybold (PHENERGAN) 00:00: MOUTH - 25 MG oral 00 EVERY 6 Machine Tester a Tablet HOURS l NEEDED FOR NAUSEA / VOMITING Promethazin 2022-0 2023- No [id number] TAKE 1 TAB Andreea e HCl 5-21 -19 (25 MG) BY Seybold (PHENERGAN) 00:00: 00:00 MOUTH - 25 MG oral 00 :00 EVERY 6 Machine Tester a Tablet HOURS l NEEDED FOR NAUSEA / VOMITING HYDROcodone 2022-0 2023- No 1{tbl} Q.25D Take 1 Andreea -Acetaminop [...] Branch 11/03/22 at 1030, MALAI[place] NaCl 0.9% No 1000mL at 999 Uni [...] bonita 1:1:1 Wed Branch ([facility] 11/03/22 at [facility]) 0945, oral Routine suspension 15 mL ketorolac [...] 11/03/22 at 0930, MALAIKA dicyclomine 2022-0 Yes [id number] 20mg Take 1 Univers 20 mg 4-26 tablet by ity of tablet 00:00: mouth 4 [place] 00 (four) Medical times Branch daily as needed for Abdominal pain. ondansetron 2022-0 Yes [id number] 4mg Take 1 Univers 4 mg -26 tablet by ity of disintegrat 00:00: mouth [place] ing tablet 00 every 12 Medic al (twelve) Branch hours as needed for Nausea and Vomiting (N/V). dicyclomine 2022-0 2022- No [id number] 20mg Take 1 Univers 20 mg -02 02-03 tablet by ity of tablet 00:00: 00:00 mouth 4 [place] 00 :00 (four) Medical times Branch daily as needed for Abdominal pain. ondansetron 2022-0 2022- No [id number] 4mg Take 1 Univers 4 mg 4-02 02-03 tablet by ity of disintegrat 00:00: 00:00 [place] tablet 00 :00 every 12 Medic al (twelve) Branch hours as needed for Nausea and Vomiting (N/V). Dicyclomine 2022-0 2022- No 20mg Q.25D Take 1 Ke [...] NEEDED FOR NAUSEA AND VOMITING Atorvastati Yes [id number] 80mg Take 1 Andreea n Calcium 4-18 tablet (80 Seyb old 80 MG oral 00:00: mg total) - Tablet 00 by mouth Externa daily l Insulin Yes [id number] 10U Inject 10 [place]reea Aspart 4-18 3 units into Seybold (NovoLOG 00:00: the skin 3 - FlexPen) 00 times Externa 100 UNIT/ML daily l subcutaneou (before s Solution meals) Pen-injecto Plus r sliding scale 1 unit for every 50 above 150 (maximum 50 units per day) Insulin Yes [id number] 100U Inject 100 Andreea Glargine 4-18 3 units into Seybo ld (Basaglar 00:00: the skin - KwikPen) 00 at bedtime Exter na 100 UNIT/ML l subcutaneou s Solution Pen-injecto r Metformin Yes [id number] 1000mg Take 1 Andreea HCl 1000 MG 4-18 3 tablet Seybol d oral Tablet 00:00: (1,000 mg - 00 total) by Externa mouth in l the morning and 1 tablet (1,000 mg total) in the evening. Take with meals. Atorvastati Yes [id number] 80mg Take 1 Andreea n Calcium 4-18 tablet (80 Seyb old 80 MG oral 00:00: mg total) - Tablet 00 by mouth Externa daily l Insulin Yes [id number] 100U Inject 100 [place]reea Glargine 4-18 3 units into Seybo ld (Basaglar 00:00: the skin - KwikPen) 00 at bedtime Exter na 100 UNIT/ML l subcutaneou s Solution Pen-injecto r Metformin Yes [id number] 1000mg Take 1 Andreea HCl 1000 MG 4-18 3 tablet Seybol d oral Tablet 00:00: (1,000 mg - 00 total) by Externa mouth in l the morning and 1 tablet (1,000 mg total) in the evening. Take with meals. Atorvastati 0 Yes [id number] 80mg Take 1 Andreea n Calcium 4-18 tablet (80 Seyb old 80 MG oral 00:00: mg total) - Tablet 00 by mouth Externa daily l Insulin 2022-0 Yes [id number] 100U Inject 100 [place]reea Glargine 4-18 3 units into Seybo ld (Basaglar 00:00: the skin - KwikPen) 00 at bedtime Exter na 100 UNIT/ML l subcutaneou s Solution Pen-injecto r Metformin 2022-0 Yes [id number] 1000mg Take 1 [place]reea HCl 1000 MG 4-18 3 tablet Seybol d oral Tablet 00:00: (1,000 mg - 00 total) by Externa mouth in l the morning and 1 tablet (1,000 mg total) in the evening. Take with meals. Atorvastati Yes [id number] 80mg Take 1 [place]reea n Calcium 4-18 tablet (80 Seyb old 80 MG oral 00:00: mg total) - Tablet 00 by mouth Externa daily l Insulin 2022-0 Yes [id number] 100U Inject 100 [place]reea Glargine 4-18 3 units into Seybo ld (Basaglar 00:00: the skin - KwikPen) 00 at bedtime Exter na 100 UNIT/ML l subcutaneou s Solution Pen-injecto r Metformin 2022-0 Yes [id number] 1000mg Take 1 [place]a HCl 1000 MG 4-18 3 tablet Seybol d oral Tablet 00:00: (1,000 mg - 00 total) by Externa mouth in l the morning and 1 tablet (1,000 mg total) in the evening. Take with meals. Atorvastati 2022-0 Yes [id number] 80mg Take 1 Andreea n Calcium 4-18 tablet (80 Seyb old 80 MG oral 00:00: mg total) - Tablet 00 by mouth Externa daily l Metformin 2022-0 Yes [id number] 1000mg Take 1 [place]reea HCl 1000 MG 4-18 3 tablet Seybol d oral Tablet 00:00: (1,000 mg - 00 total) by Externa mouth in l the morning and 1 tablet (1,000 mg total) in the evening. Take with meals. Atorvastati Yes [id number] 80mg Take 1 Andreea n Calcium 4-18 tablet (80 Seyb old 80 MG oral 00:00: mg total) - Tablet 00 by mouth Externa daily l Metformin 2022- No [id number] 1000mg Take 1 [place]reea HCl 1000 MG 4-18 10-20 3 tablet Seybo ld oral Tablet 00:00: 00:00 (1,000 mg - 00 :00 total) by Externa mouth in l the morning and 1 tablet (1,000 mg total) in the evening. Take with meals. Insulin 2022- No [id number] 100U Inject 100 [place]reea Glargine 18 09-19 3 units into Seyb old (Basaglar 00:00: 00:00 the skin - KwikPen) 00 :00 at bedtime Exter na 100 UNIT/ML l subcutaneou s Solution Pen-injecto r Insulin 2022- No [id number] 10U Inject 10 Andreea Aspart 18 06-13 3 units into Seybol d (NovoLOG 00:00: 00:00 the skin 3 - FlexPen) 00 :00 times Externa 100 UNIT/ML daily l subcutaneou (before s Solution meals) Pen-injecto Plus r sliding scale 1 unit for every 50 above 150 (maximum 50 units per day) Metformin Yes 1000mg Take 1,000 Andreea HCl [...] - 28 Externa l Meloxicam 2022-0 Yes [id number] 15mg QD Take 1 Andreea 15 MG oral 3-24 9107 tablet (15 Sey bold Tablet 00:00: mg total) - 00 by mouth Externa daily as l needed for pain Ezetimibe 2022-0 3- No 10mg Take 10 mg K elsey [...] Tablet 34 Externa Delayed l Response busPIRone Yes 15mg Take 15 mg Ke lsey HCl 15 MG 3-03 by mouth 2 Seyb old oral Tablet 10:09: times - 34 daily Externa l Atorvastati Yes 80mg Take [...] 1 g Spencer sey 1 g oral 03 by mouth 4 Seybo ld Tablet 10:09: times - 34 daily Externa l Lisinopril Yes 5mg Take 5 mg Ke lsey 5 MG oral 03 by mouth Seybol d Tablet 10:09: daily - 34 Externa l Continuous Yes [id number] Use as Andreea Blood Gluc 3-03 3 directed Seybo ld Transmit 00:00: for - (Dexcom G6 00 continuous Ext john Transmitter glucose l ) does not monitoring apply Misc with Dexcom system Continuous Yes [id number] Use as Andreea Blood Gluc 3-03 3 directed Seybo ld Anesthesiologist 00:00: for - (Dexcom G6 00 continuous Ext john Anesthesiologist) glucose l does not monitoring apply Device Continuous Yes [id number] Use as Andreea Blood Gluc 3-03 3 directed Seybo ld Sensor 00:00: for - (Dexcom G6 00 continuous Ext john Sensor) glucose l does not monitoring apply Misc with Dexcom system Ostomy Yes [id number] Use as Ke lsey Supplies 3-03 3 directed Seybold (Skin Tac 00:00: for - Adhesive 00 continuous Exter na Barrier glucose l Wipe) does monitoring not apply with Misc Dexcom system Fenofibrate Yes [id number] 160mg Take 1 Andreea 160 MG oral 3-03 tablet Seybol d Tablet 00:00: (160 mg - 00 total) by Externa mouth l daily Insulin Yes [id number] 10U Inject 10 Andreea Aspart 3-03 3 units into Seybold (NovoLOG 00:00: the skin 3 - FlexPen) 00 times Externa 100 UNIT/ML daily l subcutaneou (before s Solution meals) Pen-injecto Plus r sliding scale 1 unit for every 50 above 150 (maximum 50 units per day) Continuous Yes [id number] Use as Andreea Blood Gluc 3-03 3 directed Seybo ld Transmit 00:00: for - (Dexcom G6 00 continuous Ext john Transmitter glucose l ) does not monitoring apply Misc with Dexcom system Continuous Yes [id number] Use as Andreea Blood Gluc 3-03 3 directed Seybo ld Anesthesiologist 00:00: for - (Dexcom G6 00 continuous Ext john Anesthesiologist) glucose l does not monitoring apply Device Continuous Yes [id number] Use as Andreea Blood Gluc 3-03 3 directed Seybo ld Sensor 00:00: for - (Dexcom G6 00 continuous Ext john Sensor) glucose l does not monitoring apply Misc with Dexcom system Ostomy Yes [id number] Use as Ke lsey Supplies 3-03 3 directed Seybold (Skin Tac 00:00: for - Adhesive 00 continuous Exter na Barrier glucose l Wipe) does monitoring not apply with Misc Dexcom system Fenofibrate Yes [id number] 160mg Take 1 Andreea 160 MG oral 3-03 tablet Seybol d Tablet 00:00: (160 mg - 00 total) by Externa mouth l daily Continuous Yes [id number] Use as Andreea Blood Gluc 3-03 3 directed Seybo ld Transmit 00:00: for - (Dexcom G6 00 continuous Ext john Transmitter glucose l ) does not monitoring apply Misc with Dexcom system Continuous Yes [id number] Use as Andreea Blood Gluc 3-03 3 directed Seybo ld Anesthesiologist 00:00: for - (Dexcom G6 00 continuous Ext john Anesthesiologist) glucose l does not monitoring apply Device Continuous Yes [id number] Use as Andreea Blood Gluc 3-03 3 directed Seybo ld Sensor 00:00: for - (Dexcom G6 00 continuous Ext john Sensor) glucose l does not monitoring apply Misc with Dexcom system Ostomy Yes [id number] Use as Ke lsey Supplies 3-03 3 directed Seybold (Skin Tac 00:00: for - Adhesive 00 continuous Exter na Barrier glucose l Wipe) does monitoring not apply with Misc Dexcom system Fenofibrate Yes [id number] 160mg Take 1 Andreea 160 MG oral 3-03 tablet Seybol d Tablet 00:00: (160 mg - 00 total) by Externa mouth l daily Continuous Yes [id number] Use as Andreea Blood Gluc 3-03 3 directed Seybo ld Transmit 00:00: for - (Dexcom G6 00 continuous Ext john Transmitter glucose l ) does not monitoring apply Misc with Dexcom system Continuous Yes [id number] Use as Andreea Blood Gluc 3-03 3 directed Seybo ld Anesthesiologist 00:00: for - (Dexcom G6 00 continuous Ext john Anesthesiologist) glucose l does not monitoring apply Device Continuous Yes [id number] Use as Andreea Blood Gluc 3-03 3 directed Seybo ld Sensor 00:00: for - (Dexcom G6 00 continuous Ext john Sensor) glucose l does not monitoring apply Misc with Dexcom system Ostomy Yes [id number] Use as Ke lsey Supplies 3-03 3 directed Seybold (Skin Tac 00:00: for - Adhesive 00 continuous Exter na Barrier glucose l Wipe) does monitoring not apply with Misc Dexcom system Fenofibrate Yes [id number] 160mg Take 1 Andreea 160 MG oral 3-03 tablet Seybol d Tablet 00:00: (160 mg - 00 total) by Externa mouth l daily Continuous Yes [id number] Use as Andreea Blood Gluc 3-03 3 directed Seybo ld Transmit 00:00: for - (Dexcom G6 00 continuous Ext john Transmitter glucose l ) does not monitoring apply Misc with Dexcom system Continuous Yes [id number] Use as Andreea Blood Gluc 3-03 3 directed Seybo ld Anesthesiologist 00:00: for - (Dexcom G6 00 continuous Ext john Anesthesiologist) glucose l does not monitoring apply Device Continuous 0 Yes [id number] Use as Andreea Blood Gluc 3-03 3 directed Seybo ld Sensor 00:00: for - (Dexcom G6 00 continuous Ext john Sensor) glucose l does not monitoring apply Misc with Dexcom system Fenofibrate Yes [id number] 160mg Take 1 Andreea 160 MG oral 3-03 tablet Seybol d Tablet 00:00: (160 mg - 00 total) by Externa mouth l daily Continuous Yes [id number] Use as Andreea Blood Gluc 3-03 3 directed Seybo ld Transmit 00:00: for - (Dexcom G6 00 continuous Ext john Transmitter glucose l ) does not monitoring apply Misc with Dexcom system Continuous 0 Yes [id number] Use as Andreea Blood Gluc 3-03 3 directed Seybo ld Anesthesiologist 00:00: for - (Dexcom G6 00 continuous Ext john Anesthesiologist) glucose l does not monitoring apply Device Continuous 0 Yes [id number] Use as Andreea Blood Gluc 3-03 3 directed Seybo ld Sensor 00:00: for - (Dexcom G6 00 continuous Ext john Sensor) glucose l does not monitoring apply Misc with Dexcom system Fenofibrate Yes [id number] 160mg Take 1 Andreea 160 MG oral 3-03 tablet Seybol d Tablet 00:00: (160 mg - 00 total) by Externa mouth l daily Continuous Yes [id number] Use as Andreea Blood Gluc 3-03 3 directed Seybo ld Transmit 00:00: for - (Dexcom G6 00 continuous Ext john Transmitter glucose l ) does not monitoring apply Misc with Dexcom system Continuous 0 Yes [id number] Use as Andreea Blood Gluc 3-03 3 directed Seybo ld Anesthesiologist 00:00: for - (Dexcom G6 00 continuous Ext john Anesthesiologist) glucose l does not monitoring apply Device Continuous 0 Yes [id number] Use as Andreea Blood Gluc 3-03 3 directed Seybo ld Sensor 00:00: for - (Dexcom G6 00 continuous Ext john Sensor) glucose l does not monitoring apply Misc with Dexcom system Fenofibrate Yes [id number] 160mg Take 1 Andreea 160 MG oral 3-03 tablet Seybol d Tablet 00:00: (160 mg - 00 total) by Externa mouth l daily Continuous Yes [id number] Use as Andreea Blood Gluc 3-03 3 directed Seybo ld Transmit 00:00: for - (Dexcom G6 00 continuous Ext john Transmitter glucose l ) does not monitoring apply Misc with Dexcom system Continuous Yes [id number] Use as Andreea Blood Gluc 3-03 3 directed Seybo ld Anesthesiologist 00:00: for - (Dexcom G6 00 continuous Ext john Anesthesiologist) glucose l does not monitoring apply Device Continuous Yes [id number] Use as Andreea Blood Gluc 3-03 3 directed Seybo ld Sensor 00:00: for - (Dexcom G6 00 continuous Ext john Sensor) glucose l does not monitoring apply Misc with Dexcom system Ostomy Yes [id number] Use as Ke lsey Supplies 3-03 3 directed Seybold (Skin Tac 00:00: for - Adhesive 00 continuous Exter na Barrier glucose l Wipe) does monitoring not apply with Misc Dexcom system Fenofibrate Yes [id number] 160mg Take 1 Andreea 160 MG oral 3-03 tablet Seybol d Tablet 00:00: (160 mg - 00 total) by Externa mouth l daily Insulin Yes [id number] 10U Inject 10 Andreea Aspart 3-03 3 units into Seybold (NovoLOG 00:00: the skin 3 - FlexPen) 00 times Externa 100 UNIT/ML daily l subcutaneou (before s Solution meals) Pen-injecto Plus r sliding scale 1 unit for every 50 above 150 (maximum 50 units per day) Ostomy 0 2022- No [id number] Use as K elsey Supplies 3-03 08-10 3 directed Seybol d (Skin Tac 00:00: 00:00 for - Adhesive 00 :00 continuous Exter na Barrier glucose l Wipe) does monitoring not apply with Misc Dexcom system Insulin Yes [id number] 100U Inject 100 Andreea Glargine 3-01 3 units into Seybo ld (Basaglar 00:00: the skin - KwikPen) 00 at bedtime Exter na 100 UNIT/ML l subcutaneou s Solution Pen-injecto r Lawton-3 0 Yes [id number] 1000{ca Take 1,000 Andreea 1000 MG 3-01 psule} capsules Seybol d oral 00:00: by mouth 3 - Capsule 00 times Externa daily l Insulin 2022-0 Yes [id number] 100U Inject 100 Andreea Glargine 3-01 3 units into Seybo ld (Basaglar 00:00: the skin - KwikPen) 00 at bedtime Exter na 100 UNIT/ML l subcutaneou s Solution Pen-injecto r Lawton-3 0 Yes [id number] 1000{ca Take 1,000 Andreea 1000 MG 3-01 psule} capsules Seybol d oral 00:00: by mouth 3 - Capsule 00 times Externa daily l [place]-3 2022-0 2022- No [id number] 1000{ca Take 1,000 Andreea 1000 MG 3-01 06-09 psule} capsules Seybo ld oral 00:00: 00:00 by mouth 3 - Capsule 00 :00 times Externa daily l Insulin 2022-0 2022- No [id number] 10U Inject 10 Andreea Aspart 09-08 03-03 3 units into Seybol d (NovoLOG 00:00: 00:00 the skin 3 - FlexPen) 00 :00 times Externa 100 UNIT/ML daily l subcutaneou (before s Solution meals) Pen-injecto r [place]-3 2022- No Take by Andreea 1000 MG [...] 10 mg Andreea ne HCl 10 -07 09- by mouth Seybo ld MG oral 15:10: 00:00 at bedtime - Tablet 02 :00 Externa l MethIMAzole 0 2022- No 10mg Take 10 mg Andreea 10 MG oral 09-07- by mouth Seyb old Tab 15:01: 00:00 daily - 44 :00 Externa l Metformin 0 Yes 1000mg Take 1,000 Andreea HCl 1000 MG 2-28 mg by Seybold oral Tab 14:59: mouth 2 - 38 times Externa daily l (with meals) Amitriptyli 0 Yes 50mg Take 50 mg Andreea ne HCl 50 28 by mouth Seybol d MG oral 14:59: [...] daily - Tablet 38 Externa l Aripiprazol 0 Yes Take by Spencer sey e 10 MG -28 mouth Seybold oral Tablet 14:59: - 38 Externa l Dapaglifloz 0 Yes 1{tbl} 1 tablet Andreea in -28 daily Seybold Propanediol 14:59: - (Farxiga) 38 [...] Tablet 14:59: daily - 38 Externa l Lawton-3 Yes [id number] 1000{ca Take 1,000 Andreea 1000 MG 2-28 psule} capsules Seybol d oral 00:00: by mouth 3 - Capsule 00 times Externa daily l Insulin Yes [id number] 10U Inject 10 Andreea Aspart 2-28 3 units into Seybold (NovoLOG 00:00: the skin 3 - FlexPen) 00 times Externa 100 UNIT/ML daily l subcutaneou (before s Solution meals) Pen-injecto r Insulin Yes [id number] 100U Inject 100 Andreea Glargine 2-28 3 units into Seybo ld (Basaglar 00:00: the skin - KwikPen) 00 at bedtime Exter na 100 UNIT/ML l subcutaneou s Solution Pen-injecto r Insulin 2022- No [id number] 100U Inject 100 Andreea Glargine 2-28 02-28 [...] Until 08/30/22 at 0825, Routine insulin Yes [id number] 72U inject 72 Univers degludec 2-20 Units ity of (TRESIBA 00:00: [place] FLEXTOUCH 00 skin 2 Medical U-100) 100 (two) Branch unit/mL (3 times mL) InPn daily. insulin Yes [id number] 72U inject 72 Univers degludec 2-20 Units ity of (TRESIBA 00:00: [place] FLEXTOUCH 00 skin 2 Medical U-100) 100 (two) Branch unit/mL (3 times mL) InPn daily. insulin Yes [id number] 72U inject 72 Univers degludec 2-20 Units ity of (TRESIBA 00:00: [place] FLEXTOUCH 00 skin 2 Medical U-100) 100 (two) Branch unit/mL (3 times mL) InPn daily. insulin 2022- No [id number] 72U inject 72 Univers degludec 2-20 07-03 Units ity of (TRESIBA 00:00: 00:00 under the [place] as FLEXTOUCH 00 :00 skin 2 Medical U-100) 100 (two) Branch unit/mL (3 times mL) InPn daily. atorvastati 2022- No [id number] 80mg Take 1 Univers n 80 mg 2-27 09- tablet by ity of tablet 00:00: 04:59 mouth at [place] 00 :00 bedtime Medical for 30 Branch days. LOVAZA, 2022- No [id number] 1g Take 1 Un fabiana omega-3-aci 2-20 09-30 capsule by i ty of d ethyl 00:00: 04:59 mouth in [place] esters, 1 00 :00 the Medical gram morning Branch capsule and 1 capsule in the evening. Do all this for 30 days. atorvastati 2022- No [id number] 80mg Take 1 Univers n 80 mg 08-30 tablet by ity of tablet 00:00: 04:59 mouth at [place] 00 :00 bedtime Medical for 30 Branch days. SILVANAA, 2022- No [id number] 1g Take 1 Un fabiana omega-3-aci 08-30 [...] Yes 650mg 650 mg, Un fabiana en 08-28 Oral, ity of (TYLENOL) 18:48: Q6HPRN, [place] [...] Yes 40mg 40 mg, Unive rs (LOVENOX) 08-27 Subcutaneo ity of injection 15:00: us, DAILY, [place] 40 mg 00 First dose Medical on Tue Branch 08/27/22 at 0900, Until Discontinu ed, Routine lisinopriL 0 Yes 2.5mg 2.5 mg, Uni vers (PRINIVIL,Z -17 Oral, ity of ESTRIL) 15:00: DAILY, [place] tablet 2.5 00 First dose Med ical mg on Tue [place] 08/27/22 at 0900, Until Discontinu ed, Routine fenofibrate 0 Yes 134mg 134 mg, Un fabiana micronized 17 Oral, ity of (LOFIBRA) 15:00: DAILY, [place] capsule 134 00 First dose Me dical mg on Tue Branch 08/27/22 at 0900, Until Discontinu ed, Routine gabapentin 0 Yes 600mg 600 mg, Uni vers (NEURONTIN) -17 Oral, BID, it y of tablet 600 02:00: First dose [place] mg 00 on [facility] Medical 08/26/22 at Branch 2000, Until Discontinu ed, Routine insulin 0 2023- No .1U/kg/ 0.1 Univer s regular [...] or has mental status changes. NaCl 0.9% 0 2022- No 1000mL at 200 Uni vers (NS) IV 08-27- mL/hr, IV ity of infusion 00:00: 21:45 Infusion, [place] 1,000 mL 00 :17 CONTINUOUS Medic al , Starting Branch on [place] 08/26/22 at 1800, Until 2/19/23 at 1545, Routine LOVAZA Yes 2{capsu 2 g (2 Univer s (omega-3-ac -16 le} capsule), ity of id ethyl 23:00: Oral, BID, [place] as esters) 00 First dose Medica l capsule 2 g on [facility] 08/26/22 at 1700, Until Discontinu ed, Routine atorvastati Yes 80mg 80 mg, Univ ers n (LIPITOR) 2-16 Oral, QHS, it y of tablet 80 23:00: First dose [place] mg 00 on [facility] 08/26/22 at Branch 1700, Until Discontinu ed, Routine insulin 2022- No 8U 8 Units, Unive rs regular 08-26 Slow IV ity of human 23:00: 23:06 [place] (HUMULIN R) 00 :00 ONCE, 1 Medic al injection 8 dose, On Bran ch Units [facility] 08/26/22 at 1700, STAT
In dication for insulin: Hyperglyce shea NaCl 0.9% 2022- No 2000mL at 999 Uni vers (NS) bolus 08-26 mL/hr, ity of infusion 21:45: 23:52 2,000 mL, [place] 2,000 mL 00 :00 IV [facility] ONCE, 1 dose, On [facility] 08/26/22 at 1545, STAT insulin 2022- No 10U 10 Units, Univ ers regular 08-26 Slow IV ity of human 21:00: 21:11 [place], [place] (HUMULIN R) 00 :00 ONCE, 1 Medic al injection dose, On Branch 10 Units [facility] 08/26/22 at 1500, STAT
In dication for insulin: Hyperglyce shea Lactobacill 2022- No Take by Un fabiana us 08-26 mouth. ity of acidophilus 18:46: 00:00 [place] (PROBIOTIC 18 :00 Medical ORAL) [place] MULTIVITAMI 2022- No Take by Un fabiana N ORAL 08-26 mouth. ity of 18:46: 00:00 [place] 18 :00 Medical [place] multivitami 2022- No Take by Un fabiana n with 2-16 02-16 mouth. ity of minerals 18:46: 00:00 [place] (HAIR,SKIN 18 :00 Medical AND NAILS Branch ORAL) Lactobacill 2022- No Take by Un fabiana us 2-16 02-16 mouth. ity of acidophilus 18:46: 00:00 [place] [...] 2-14 A DAY 00:00: 00 TAKE 1 2021-1 No TABLET 2-14 DAILY. 00:00: 00 TAKE [...] Medical Infusion, Branch ONCE, 1 dose, On 06/21/22 at 1845, STAT TAKE 2021-07 No TABLET 0-21 TWICE A DAY 00:00: 00 TAKE 1 2021-1 No TABLET 0-21 TWICE A DAY 00:00: 00 TAKE 1 1 No TABLET 0-21 TWICE A DAY 00:00: 00 TAKE 1 2021-1 No TABLET 0-21 TWICE A DAY 00:00: 00 TAKE 1 1 No TABLET 0-21 TWICE A DAY 00:00: 00 Dose 2-0 No Unknown 7-13 00:00: 00 Bromfed DM 2-0 No 5mg/5 2 mg-30 [...] glimepiride 2-0 No 1mg 4 mg tablet 514 00:00: 00 Janumet XR 2-0 No 1mg [...] lisinopril 2022-0 No 1mg 5 mg tablet -14 00:00: 00 atorvastati 2022-0 No 1mg n [...] 25 mg 4-15 tablet 00:00: 00 Dose 2-0 No Unknown 4-15 00:00: 00 Dose 2022-0 [...] 1000mL at 999 Uni vers (NS) IV 10-17-09 mL/hr, ity of infusion 02:00: 02:08 [place]ou [place] 1,000 mL 00 :00 s, ONCE, 1 Medic al dose, On Branch Tue10/16/21 at 2100, MALAIKA insulin 2021-0 2021- No .1U/kg 10.3 Units U nivers regular 10-17-09 (rounded ity of human 02:00: 01:[address] [place] [address] (HUMULIN R) 00 :00 Units = Medic al injection 0.1 Branch 10.3 Units Units/kg ?103.4 kg), Slow IV Push, ONCE, 1 dose, On Tue10/16/21 at 2100, STAT oxybutynin No 5mg 5 mg, Unive rs chloride 10-17 Oral, ity of (DITROPAN) 02:00: 01:09 ONCE, 1 [place] as tablet 5 mg 00 :00 dose, On [facility] 10/16/21 Branch at 2100, Routine traMADoL No [...] No 4mg 4 mg, Slow Univers (ZOFRAN 10-1608 IV Push, ity of (PF)) 23:15: 23:05 ONCE, 1 [place] injection 4 00 :00 dose, On [facility] Tue10/16/21 Branch at 1815, MALAIKA ketorolac No 30mg 30 mg, Unive rs (TORADOL) 10-16- Slow IV ity of injection 23:15: 23:05 Push, [place] 30 mg 00 :00 ONCE, 1 Medical dose, On Branch Tue10/16/21 at 1815, Routine
direct support staff member approving Restricted medication : BEATRIZ EDUARDO oxybutynin 2021- Yes [id number] 5mg Take 1 Univers chloride 5 4-08 tablet by ity of mg tablet 00:00: mouth 3 [place] 00 (three) Medical times Branch daily as needed for Bladder spasms. ondansetron 0 Yes [id number] 4mg Take 1 Univers 4 mg 4-08 tablet by ity of disintegrat 00:00: mouth [place] ing tablet 00 every 8 Medica l (eight) Branch hours as needed for Nausea and Vomiting (N/V). oxybutynin 0 Yes [id number] 5mg Take 1 Univers chloride 5 4-08 tablet by ity of mg tablet 00:00: mouth 3 [place] 00 (three) Medical times Branch daily as needed for Bladder spasms. ondansetron 2-0 Yes [id number] 4mg Take 1 Univers 4 mg 4-08 tablet by ity of disintegrat 00:00: mouth [place] ing tablet 00 every 8 Medica l (eight) Branch hours as needed for Nausea and Vomiting (N/V). oxybutynin 2-0 Yes [id number] 5mg Take 1 Univers chloride 5 4-08 tablet by ity of mg tablet 00:00: mouth 3 [place] 00 (three) Medical times Branch daily as needed for Bladder spasms. ondansetron 2-0 Yes [id number] 4mg Take 1 Univers 4 mg 4-08 tablet by ity of disintegrat 00:00: mouth [place] ing tablet 00 every 8 Medica l (eight) Branch hours as needed for Nausea and Vomiting (N/V). oxybutynin 2-0 Yes [id number] 5mg Take 1 Univers chloride 5 4-08 tablet by ity of mg tablet 00:00: mouth 3 [place] 00 (three) Medical times Branch daily as needed for Bladder spasms. ondansetron 2-0 Yes [id number] 4mg Take 1 Univers 4 mg 4-08 tablet by ity of disintegrat 00:00: mouth [place] ing tablet 00 every 8 Medica l (eight) Branch hours as needed for Nausea and Vomiting (N/V). oxybutynin 2-0 Yes [id number] 5mg Take 1 Univers chloride 5 4-08 tablet by ity of mg tablet 00:00: mouth 3 [place] 00 (three) Medical times Branch daily as needed for Bladder spasms. ondansetron 2-0 Yes [id number] 4mg Take 1 [facility] 4 mg 4-08 tablet by ity of disintegrat 00:00: mouth [place] ing tablet 00 every 8 Medica l (eight) Branch hours as needed for Nausea and Vomiting (N/V). oxybutynin 2022-0 2023- No [id number] 5mg Take 1 [facility] chloride 5 4-08 07-03 tablet by ity of mg tablet 00:00: 00:00 mouth 3 [place] :[place] (three) Medical times Branch daily as needed for Bladder spasms. ondansetron 2022- No [id number] 4mg Take 1 [facility] 4 mg 10-16 tablet by ity of disintegrat 00:00: 00:00 mouth [place] tablet 00 :00 every 8 Medica l (eight) Branch hours as needed for Nausea and Vomiting (N/V). traMADoL 50 2021- No [id number] 50mg Take 1 Uni vers mg tablet 10-1616 tablet by ity of 00:00: 04:59 mouth [...] 3- 00:00: 00 Dose 2022-0 No Unknown 3-31 00:00: 00 Dose 2022-0 No Unknown 3- 00:00: 00 Dose 2022-0 No Unknown 3-31 [...] 3- 00:00: 00 Dose 2022-0 No Unknown 3-31 [...] mg Branch 09/22/21 at 1015, Routine Dose 0 [...] 2022-0 No Unknown 1-19 00:00: 00 Dose 0 No Unknown 1- 00:00: 00 Dose 2021-0 No Unknown - 00:00: 00 Dose 2021-0 No Unknown - 00:00: 00 Dose 2021-0 No Unknown - 00:00: 00 Dose 2021-0 [...] Indication s: acute pain ondansetron 2020-07 Yes [id number] 4mg Take 1 [facility] 4 mg 2-09 [...] Indication s: acute pain ondansetron 2020-07 Yes [id number] 4mg Take 1 [facility] 4 mg 2-09 [...] Indication s: acute pain ondansetron 2020-07 Yes [id number] 4mg Take 1 [facility] 4 mg 2-09 [...] Indication s: acute pain ondansetron 2020-07- No [id number] 4mg Take 1 [facility] 4 mg 2-03 14- tablet by ity of disintegrat 00:00: [...] glimepiride 2020-07 No 1mg 4 mg tablet 207 00:00: 00 Diflucan 2020-07 No 1mg 150 [...] 05/30/21 at 1800, Routine iopamidol 2020-07- No [id number] 100mL 100 mL, Univers (ISOVUE 07-30 9109 Intravenou ity o f 370-500 mL) 23:48: 23:48 s, ONCE, 1 [place] injection 00 :00 dose, On Medica l 100 mL Sat Branch 05/30/21 at 1800, Routine ibuprofen 2020-07 Yes [id number] 600mg Take 1 [facility] 600 mg 07-30 [id number] tablet by ity of tablet 00:00: mouth [place] 00 every 6 Medical (six) Branch hours as needed for Pain (scale 4-6). traMADoL 50 2020-07 Yes [id number] 50mg Take 1 Univ ers mg tablet 1-20 tablet by ity o f 00:00: mouth [place] 00 every 6 Medical (six) Branch hours as needed for Pain (scale 7-10). Indication s: acute pain ibuprofen 2020-07 Yes [id number] 600mg Take 1 [facility] 600 mg 1-20 [id number] tablet by ity of tablet 00:00: mouth [place] 00 every 6 Medical (six) Branch hours as needed for Pain (scale 4-6). traMADoL 50 2020-07 Yes [id number] 50mg Take 1 Univ ers mg tablet 1-20 tablet by ity o f 00:00: mouth [place] 00 every 6 Medical (six) Branch hours as needed for Pain (scale 7-10). Indication s: acute pain ibuprofen 2020-07 Yes [id number] 600mg Take 1 [facility] 600 mg 1-20 [id number] tablet by ity of tablet 00:00: mouth [place] 00 every 6 Medical (six) Branch hours as needed for Pain (scale 4-6). traMADoL 50 2020-07 Yes [id number] 50mg Take 1 Univ ers mg tablet 1-20 tablet by ity o f 00:00: mouth [place] 00 every 6 Medical (six) Branch hours as needed for Pain (scale 7-10). Indication s: acute pain ibuprofen 2020-07 Yes [id number] 600mg Take 1 [facility] 600 mg 1-20 [id number] tablet by ity of tablet 00:00: mouth [place] 00 every 6 Medical (six) Branch hours as needed for Pain (scale 4-6). traMADoL 50 2020-07 Yes [id number] 50mg Take 1 Univ ers mg tablet 1-20 tablet by ity o f 00:00: mouth [place] 00 every 6 Medical (six) Branch hours as needed for Pain (scale 7-10). Indication s: acute pain ibuprofen 2020-07 Yes [id number] 600mg Take 1 [facility] 600 mg 1-20 [id number] tablet by ity of tablet 00:00: mouth [place] 00 every 6 Medical (six) Branch hours as needed for Pain (scale 4-6). ibuprofen 2020-07 Yes [id number] 600mg Take 1 [facility] 600 mg 1-20 [id number] tablet by ity of tablet 00:00: mouth [place] 00 every 6 Medical (six) Branch hours as needed for Pain (scale 4-6). ibuprofen 2020-07- No [id number] 600mg Take 1 [facility] 600 mg 07-30 [id number] tablet by ity o f tablet 00:00: [...] 2020-0 No Unknown 9-13 00:00: 00 Dose 2021-0 No Unknown 9-13 00:00: 00 Dose 2021-0 No Unknown 9-13 00:00: 00 Dose 2021-0 No Unknown 9-13 00:00: 00 Dose 2021-0 No Unknown 9-13 00:00: 00 Dose 2021-0 No Unknown 9-13 00:00: 00 VASCEPA 1 2020-0 Yes [id number] TAKE 3 U nivers gram 9-10 CAPSULES ity of capsule 00:00: BY MOUTH [place] [address] EVERY DAY Medical Branch VASCEPA 1 2020-0 Yes [id number] TAKE 3 U nivers gram 9-10 CAPSULES ity of capsule 00:00: BY MOUTH [place] [address] EVERY DAY Medical Branch VASCEPA 1 2020-0 Yes [id number] TAKE 3 U nivers gram 9-10 CAPSULES ity of capsule 00:00: BY MOUTH [place] EVERY DAY Medical Branch VASCEPA 1 2020-0 Yes [id number] TAKE 3 U nivers gram 9-10 CAPSULES ity of capsule 00:00: BY MOUTH [place] EVERY DAY Medical Branch VASCEPA 1 2020-0 Yes [id number] TAKE 3 U nivers gram 9-10 CAPSULES ity of capsule 00:00: BY MOUTH [place] EVERY DAY Medical Branch VASCEPA 1 2020-0 Yes [id number] TAKE 3 U nivers gram 9-10 CAPSULES ity of capsule 00:00: BY MOUTH [place] EVERY DAY Medical Branch VASCEPA 1 2020-0 Yes [id number] TAKE 3 U nivers gram 9-10 CAPSULES ity of capsule 00:00: BY MOUTH [place] EVERY DAY Medical Branch VASCEPA 1 2020-0 Yes [id number] TAKE 3 U nivers gram 9-10 CAPSULES ity of capsule 00:00: BY MOUTH [place] EVERY DAY Medical Branch VASCEPA 1 2020-0 Yes [id number] TAKE 3 U nivers gram 9-10 CAPSULES ity of capsule 00:00: BY MOUTH [place] [address] EVERY DAY Medical Branch VASCEPA 1 2020-0 Yes [id number] TAKE 3 U nivers gram 9-10 CAPSULES [...] mg/5 00:00: mL oral 00 syrup Dose 1-0 No Unknown 9-10 00:00: 00 Bromfed DM 1-0 No 5mg/5 2 mg-30 9-10 mL mg-10 mg/5 00:00: mL oral 00 syrup Dose 1-0 No Unknown 9-10 00:00: 00 Bromfed DM 2021-0 No 5mg/5 2 mg-30 9-10 mL mg-10 mg/5 00:00: mL oral 00 syrup VASCEPA 1 2020-0 2023- No [id number] TAKE 3 [facility] gram 9-10 07-03 CAPSULES ity of capsule 00:00: 00:00 BY MOUTH [place] 00 :00 EVERY DAY Medical Branch metronidazo 1-0 No [...] pen alogliptin 1-0 No 1mg 25 mg -30 tablet 00:00: 00 lisinopril 1-0 No 1mg 5 mg tablet 02-06 00:00: 00 glimepiride 1-0 No 1mg 4 [...] 1-0 No Unknown 7-30 00:00: 00 buspirone 1-0 No 1mg 10 [...] 6- 00:00: 00 Dose 2021-0 No Unknown 6 00:00: 00 Dose 2021-0 No Unknown 6 00:00: 00 Dose 2021-0 No Unknown 6 00:00: 00 Dose 2021-0 No Unknown 6 00:00: 00 hydrocortis 2021-0 No 1% one [...] Dose 2021-0 No Unknown 6-20 00:00: 00 gabapentin 2021-0 No 3mg 300 [...] Dose 2021-0 No Unknown 6-10 00:00: 00 Janumet XR 2021-0 No 1mg [...] 00 nded release icosapent 2020-0 2020- No [id number] 3g Take 3 [facility] ethyL 6- 09-10 capsules ity of (VASCEPA) 1 00:00: 00:00 by mouth [place] gram 00 :00 daily. Medical capsule Branch icosapent 2020-0 2020- No [id number] 3g Take 3 [facility] ethyL 6-02 09-10 capsules ity of (VASCEPA) 1 00:00: 00:00 by mouth [place] gram 00 :00 daily. Medical capsule Branch Tresiba 0 No (3 mL) FlexTouch 6-01 U-100 00:00: insulin 100 00 unit/mL (3 mL) subcutaneou s pen alogliptin 0 No 1mg 25 mg 6-01 tablet 00:00: [...] 800 mg 6-01 tablet 00:00: 00 Tresiba 202-0 No (3 mL) FlexTouch 6-01 U-100 00:00: [...] us 5-27 mouth. ity of acidophilus 22:32: [place] (PROBIOTIC 10 Medical ORAL) [place] MULTIVITAMI Yes Take by Uni vers N ORAL 5-27 mouth. ity of 22:32: [place] [address] Medical [place] multivitami Yes Take by Uni vers n with 5-27 mouth. ity of minerals 22:32: [place] (HAIR,SKIN 10 Medical AND NAILS Branch ORAL) Lactobacill 0 Yes Take by Uni vers us 5-27 mouth. ity of acidophilus 17:32: [place] (PROBIOTIC 10 Medical ORAL) [place] MULTIVITAMI Yes Take by Uni vers N ORAL 5-27 mouth. ity of 17:32: [place] [address] Medical Branch multivitami 0 Yes Take by Uni vers n with 5-27 mouth. ity of minerals 17:32: [place] (HAIR,SKIN 10 Medical AND NAILS Branch ORAL) Lactobacill Yes Take by Uni vers us 5-27 mouth. ity of acidophilus 17:32: [place] (PROBIOTIC 10 Medical ORAL) Branch MULTIVITAMI Yes Take by Uni vers N ORAL 5-27 mouth. ity of 17:32: [address] multivitami 0 Yes Take by Uni vers n with 5-27 mouth. ity of minerals 17:32: [place] (HAIR,SKIN 10 Medical AND NAILS Branch ORAL) Lactobacill 0 Yes Take by Uni vers us 5-27 mouth. ity of acidophilus 17:32: [place] (PROBIOTIC 10 Medical ORAL) Branch MULTIVITAMI 0 Yes Take by Uni vers N ORAL 5-27 mouth. ity of 17:32: [place] [address] Medical Branch multivitami 0 Yes Take by Uni vers n with 5-27 mouth. ity of minerals 17:32: [place] (HAIR,SKIN 10 Medical AND NAILS Branch ORAL) Lactobacill 0 Yes Take by Uni vers us 5-27 mouth. ity of acidophilus 17:32: [place] (PROBIOTIC 10 Medical ORAL) [place] MULTIVITAMI Yes Take by Uni vers N ORAL 5-27 mouth. ity of 17:32: [address] multivitami Yes Take by Uni vers n with 5-27 mouth. ity of minerals 17:32: [place] (HAIR,SKIN 10 Medical AND NAILS Branch ORAL) Lactobacill 0 Yes Take by Uni vers us 5-27 mouth. ity of acidophilus 17:32: [place] (PROBIOTIC 10 Medical ORAL) [place] MULTIVITAMI Yes Take by Uni vers N ORAL 5-27 mouth. ity of 17:32: [address] multivitami 0 Yes Take by Uni vers n with 5-27 mouth. ity of minerals 17:32: [place] (HAIR,SKIN 10 Medical AND NAILS Branch ORAL) Lactobacill 0 Yes Take by Uni vers us 5-27 mouth. ity of acidophilus 17:32: [place] (PROBIOTIC 10 Medical ORAL) Branch MULTIVITAMI 0 Yes Take by Uni vers N ORAL 5-27 mouth. ity of 17:32: [place] [address] Medical Branch multivitami 0 Yes Take by Uni vers n with 5-27 mouth. ity of minerals 17:32: [place] (HAIR,SKIN 10 Medical AND NAILS Branch ORAL) midodrine 5 2020-0 2021- No [id number] 5mg Take 1 [facility] mg tablet 12-04 tablet by ity of 00:00: 04:59 mouth 3 [place] 00 :00 (three) Medical times Branch daily for 30 days. Diflucan 2021-0 No 1mg 150 mg 5-18 [...] tablet 00:00: 00 Dose 2021-0 No Unknown 5- 00:00: 00 glimepiride 2021-0 Yes 4mg Take 1 Univ ers 4 mg tablet 5-02 tablet by ity of 00:00: mouth [place] ([facility]) Medical times Branch daily with meals. glimepiride 2021-0 Yes 4mg Take 1 Univ ers 4 mg tablet 5-02 tablet by ity of 00:00: mouth [place] (two) Medical times Branch daily with meals. glimepiride 2021-0 Yes 4mg Take 1 Univ ers 4 mg tablet 5-02 tablet by ity of 00:00: mouth [address] [place] [address] (two) Medical times Branch daily with meals. glimepiride 2021-0 Yes 4mg Take 1 Univ ers 4 mg tablet 5-02 tablet by ity of 00:00: mouth [place] (two) Medical times Branch daily with meals. glimepiride 2021-0 Yes 4mg Take 1 Univ ers 4 mg tablet 5-02 tablet by ity of 00:00: mouth 2 [place] (two) Medical times Branch daily with meals. glimepiride 2021-0 Yes 4mg Take 1 Univ ers 4 mg tablet 5-02 tablet by ity of 00:00: mouth 2 [place] (two) Medical times Branch daily with meals. glimepiride 2021-0 Yes 4mg Take 1 [facility] ers 4 mg tablet 5-02 tablet by ity of 00:00: mouth 2 [place] (two) Medical times Branch daily with meals. glimepiride 2020-0 Yes 4mg Take 1 [facility] ers 4 mg tablet 5-02 tablet by ity of 00:00: mouth 2 [place] (two) Medical times Branch daily with meals. glimepiride 2020-0 Yes 4mg Take 1 Univ ers 4 mg tablet 5-02 tablet by ity of 00:00: mouth 2 (two) Medical times Branch daily with meals. glimepiride 2020-0 Yes 4mg Take 1 Univ ers 4 mg tablet 5-02 tablet by ity of 00:00: mouth [place] (two) Medical times Branch daily with meals. glimepiride 2020-0 2023- No 4mg Take 1 [facility] vers 4 mg tablet 5-02 -03 tablet by it y of 00:00: 00:00 mouth 2 [place] 00 :00 (two) Medical times Branch daily with meals. glimepiride 2020-0 3- No 4mg Take 1 Uni vers 4 mg tablet 5-08 17-03 tablet by it y of 00:00: 00:00 mouth 2 [place] 00 : (two) Medical times Branch daily with meals. fenofibrate 2020-0 Yes 134mg Take 1 Uni vers micronized 4-30 capsule by ity of 134 mg 00:00: mouth [place] 00 daily. Medical Branch metFORMIN 2020-0 Yes [id number] 1000mg Take 1 [facility] 1,000 mg 4-30 tablet by ity of tablet 00:00: mouth [place] (two) Medical times Branch daily with meals. blood sugar 2020-0 Yes [id number] Use daily [facility] diagnostic 4-30 Dx E11.65 ity of (ONETOUCH 00:00: [place] VERIO TEST 00 Medical STRIPS) Branch strip lancets 2020-0 Yes [id number] Use daily [facility] (ONE TOUCH 4-30 Dx E11.65 ity of DELICA) 33 00:00: [place] gauge Misc 00 Medical Branch gabapentin 2020-0 Yes [id number] 600mg Take 1 [facility] 600 mg 4-30 tablet by ity of tablet 00:00: mouth 2 [place] (two) Medical times Branch daily. lisinopriL 2021-0 Yes [id number] 2.5mg Take 1 [facility] 2.5 mg 4-30 tablet by ity of tablet 00:00: mouth [place] 00 daily. Medical Branch insulin Yes [id number] 35U inject 35 [facility] degludec 4-30 Units ity of (TRESIBA 00:00: [place] FLEXTOUCH 00 skin 2 Medical U-100) 100 (two) Branch unit/mL (3 times mL) InPn daily. fenofibrate Yes 134mg Take 1 Uni vers micronized 4-30 capsule by ity of 134 mg 00:00: mouth [place] capsule 00 daily. Medical Branch metFORMIN Yes [id number] 1000mg Take 1 [facility] 1,000 mg 4-30 tablet by ity of tablet 00:00: mouth 2 [place] 00 (two) Medical times Branch daily with meals. blood sugar Yes [id number] Use daily [facility] diagnostic 4-30 Dx E11.65 ity of (ONETOUCH 00:00: [place] VERIO TEST 00 Medical STRIPS) Branch strip lancets Yes [id number] Use daily [facility] (ONE TOUCH 4-30 Dx E11.65 ity of DELICA) 33 00:00: [place] gauge Misc 00 Medical Branch lisinopriL Yes [id number] 2.5mg Take 1 [facility] 2.5 mg 4-30 [...] capsule 00 daily. Medical Branch metFORMIN Yes [id number] 1000mg Take 1 [facility] 1,000 mg 4-30 tablet by ity of tablet 00:00: mouth 2 [place] 00 (two) Medical times Branch daily with meals. blood sugar Yes [id number] Use daily [facility] diagnostic 4-30 Dx E11.65 ity of (ONETOUCH 00:00: [place] VERIO TEST 00 Medical STRIPS) Branch strip lancets Yes [id number] Use daily [facility] (ONE TOUCH 4-30 Dx E11.65 ity of DELICA) 33 00:00: [facility] Medical Branch gabapentin 202-0 Yes [id number] 600mg Take 1 [facility] 600 mg 4-30 tablet by ity of tablet 00:00: mouth 2 [place] 00 (two) Medical times Branch daily. lisinopriL 202-0 Yes [id number] 2.5mg Take 1 [facility] 2.5 mg 4-30 tablet by ity of tablet 00:00: mouth [place] 00 daily. Medical Branch fenofibrate 2020-0 Yes 134mg Take 1 Uni vers micronized 4-30 capsule by ity of 134 mg 00:00: mouth [place] capsule 00 daily. Medical Branch metFORMIN 2020-0 Yes [id number] 1000mg Take 1 [facility] 1,000 mg 4-30 tablet by ity of tablet 00:00: mouth 2 [place] (two) Medical times Branch daily with meals. blood sugar 2020-0 Yes [id number] Use daily [facility] diagnostic 4-30 Dx E11.65 ity of (ONETOUCH 00:00: [place] VERIO TEST 00 Medical STRIPS) Branch strip lancets 2020-0 Yes [id number] Use daily [facility] (ONE TOUCH 4-30 Dx E11.65 ity of DELICA) 33 00:00: [facility] Medical Branch lisinopriL 2020-0 Yes [id number] 2.5mg Take 1 [facility] 2.5 mg 4-30 tablet by ity of tablet 00:00: mouth [place] 00 daily. Medical Branch fenofibrate 2020-0 Yes 134mg Take 1 Uni vers micronized 4-30 capsule by ity of 134 mg 00:00: mouth [place] capsule 00 daily. Medical Branch metFORMIN 2020-0 Yes [id number] 1000mg Take 1 [facility] 1,000 mg 4-30 tablet by ity of tablet 00:00: mouth 2 [place] (two) Medical times Branch daily with meals. blood sugar 2020-0 Yes [id number] Use daily [facility] diagnostic 4-30 Dx E11.65 ity of (ONETOUCH 00:00: [place] VERIO TEST 00 Medical STRIPS) Branch strip lancets 2020-0 Yes [id number] Use daily Univers (ONE TOUCH 4-30 Dx E11.65 ity of DELICA) 33 00:00: [facility] 00 Medical Branch lisinopriL 202-0 Yes [id number] 2.5mg Take 1 [facility] 2.5 mg 4-30 tablet by ity of tablet 00:00: mouth [place] 00 daily. Medical Branch fenofibrate Yes 134mg Take 1 Uni vers micronized 4-30 capsule by ity of 134 mg 00:00: mouth [place] capsule 00 daily. Medical Branch metFORMIN Yes [id number] 1000mg Take 1 [facility] 1,000 mg 4-30 tablet by ity of tablet 00:00: mouth 2 [place] 00 (two) Medical times Branch daily with meals. blood sugar Yes [id number] Use daily [facility] diagnostic 4-30 Dx E11.65 ity of (ONETOUCH 00:00: [place] VERIO TEST 00 Medical STRIPS) Branch strip lancets Yes [id number] Use daily Univers (ONE TOUCH 4-30 Dx E11.65 ity of DELICA) 33 00:00: [place] gauge Misc 00 Medical Branch lisinopriL Yes [id number] 2.5mg Take 1 [facility] 2.5 mg 4-30 tablet by ity of tablet 00:00: mouth [place] 00 daily. Medical Branch insulin Yes [id number] 35U inject 35 [facility] degludec 4-30 Units [...] capsule 00 daily. Medical Branch metFORMIN Yes [id number] 1000mg Take 1 [facility] 1,000 mg 4-30 tablet by ity of tablet 00:00: mouth 2 [place] 00 (two) Medical times Branch daily with meals. blood sugar Yes [id number] Use daily [facility] diagnostic 4-30 Dx E11.65 ity of (ONETOUCH 00:00: [place] VERIO TEST 00 Medical STRIPS) Branch strip lancets Yes [id number] Use daily [facility] (ONE TOUCH 4-30 Dx E11.65 ity of DELICA) 33 00:00: [facility] 00 Medical Branch gabapentin 2020-0 Yes [id number] 600mg Take 1 [facility] 600 mg 4-30 tablet by ity of tablet 00:00: mouth 2 [place] (two) Medical times Branch daily. lisinopriL Yes [id number] 2.5mg Take 1 [facility] 2.5 mg 4-30 tablet by ity of tablet 00:00: mouth [place] 00 daily. Medical Branch insulin Yes [id number] 35U inject 35 [facility] degludec 4-30 Units [...] capsule 00 daily. Medical Branch metFORMIN Yes [id number] 1000mg Take 1 [facility] 1,000 mg 4-30 tablet by ity of tablet 00:00: mouth 2 [place] (two) Medical times Branch daily with meals. blood sugar 0 Yes [id number] Use daily [facility] diagnostic 4-30 Dx E11.65 ity of (ONETOUCH 00:00: [place] VERIO TEST 00 Medical STRIPS) Branch strip lancets 0 Yes [id number] Use daily Univers (ONE TOUCH 4-30 Dx E11.65 ity of DELICA) 33 00:00: [facility] 00 Medical Branch gabapentin 2020-0 Yes [id number] 600mg Take 1 [facility] 600 mg 4-30 tablet by ity of tablet 00:00: mouth 2 [place] 00 (two) Medical times Branch daily. lisinopriL 2020-0 Yes [id number] 2.5mg Take 1 [facility] 2.5 mg 4-30 tablet by ity of tablet 00:00: mouth [place] 00 daily. Medical Branch insulin 0 Yes [id number] 35U inject 35 [facility] degludec 4-30 Units [...] capsule 00 daily. Medical Branch metFORMIN Yes [id number] 1000mg Take 1 [facility] 1,000 mg 4-30 tablet by ity of tablet 00:00: mouth 2 [place] 00 (two) Medical times Branch daily with meals. blood sugar Yes [id number] Use daily [facility] diagnostic 4-30 Dx E11.65 ity of (ONETOUCH 00:00: [place] VERIO TEST 00 Medical STRIPS) Branch strip lancets Yes [id number] Use daily Univers (ONE TOUCH 4-30 Dx E11.65 ity of DELICA) 33 00:00: [place] gauge Misc 00 Medical Branch gabapentin Yes [id number] 600mg Take 1 [facility] 600 mg 4-30 tablet by ity of tablet 00:00: mouth 2 [place] 00 (two) Medical times Branch daily. lisinopriL Yes [id number] 2.5mg Take 1 [facility] 2.5 mg 4-30 tablet by ity of tablet 00:00: mouth [place] 00 daily. Medical Branch insulin Yes [id number] 35U inject 35 [facility] degludec 4-30 Units [...] capsule 00 daily. Medical Branch metFORMIN Yes [id number] 1000mg Take 1 [facility] 1,000 mg 4-30 tablet by ity of tablet 00:00: mouth 2 (two) Medical times Branch daily with meals. blood sugar 0 Yes [id number] Use daily [facility] diagnostic 4-30 Dx E11.65 ity of (ONETOUCH 00:00: [place] VERIO TEST 00 Medical STRIPS) Branch strip lancets 2020-0 Yes [id number] Use daily Univers (ONE TOUCH 4-30 Dx E11.65 ity of DELICA) 33 00:00: [facility] Medical Branch gabapentin 0 Yes [id number] 600mg Take 1 [facility] 600 mg 4-30 tablet by ity of tablet 00:00: mouth 2 [place] (two) Medical times Branch daily. lisinopriL Yes [id number] 2.5mg Take 1 [facility] 2.5 mg 4-30 tablet by ity of tablet 00:00: mouth 00 daily. Medical Branch insulin Yes [id number] 35U inject 35 [facility] degludec 4-30 Units ity of (TRESIBA 00:00: under the [facility] s FLEXTOUCH 00 skin 2 Medical [...] 00 daily. Medical Branch metFORMIN 0 Yes [id number] 1000mg Take 1 [facility] 1,000 mg 4-30 tablet by ity of tablet 00:00: mouth 2 [place] (two) Medical times Branch daily with meals. blood sugar Yes [id number] Use daily [facility] diagnostic 4-30 Dx E11.65 ity of (ONETOUCH 00:00: [place] VERIO TEST 00 Medical STRIPS) Branch strip lancets 2020-0 Yes [id number] Use daily [facility] (ONE TOUCH 4-30 Dx E11.65 ity of DELICA) 33 00:00: [place] gauge Mis 00 Medical Branch gabapentin 2020-0 Yes [id number] 600mg Take 1 [facility] 600 mg 4-30 tablet by ity of tablet 00:00: mouth 2 (two) Medical times Branch daily. lisinopriL Yes [id number] 2.5mg Take 1 [facility] 2.5 mg 4-30 tablet by ity of tablet 00:00: mouth 00 daily. Medical Branch insulin Yes [id number] 35U inject 35 [facility] degludec 4-30 Units [...] capsule 00 daily. Medical Branch metFORMIN Yes [id number] 1000mg Take 1 [facility] 1,000 mg 4-30 tablet by ity of tablet 00:00: mouth (two) Medical times Branch daily with meals. blood sugar Yes [id number] Use daily [facility] diagnostic 4-30 Dx E11.65 ity of (ONETOUCH 00:00: [place] VERIO TEST 00 Medical STRIPS) Branch strip lancets Yes [id number] Use daily [facility] (ONE TOUCH 4-30 Dx E11.65 ity of DELICA) 33 00:00: [place] gauge Misc 00 Medical Branch gabapentin 2020-0 Yes [id number] 600mg Take 1 [facility] 600 mg 4-30 tablet by ity of tablet 00:00: mouth (two) Medical times Branch daily. lisinopriL Yes [id number] 2.5mg Take 1 [facility] 2.5 mg 4-30 tablet by ity of tablet 00:00: mouth [place] 00 daily. Medical Branch fenofibrate 0 Yes 134mg Take 1 Uni vers micronized 4-30 capsule by ity of 134 mg 00:00: mouth [place] capsule 00 daily. Medical Branch metFORMIN Yes [id number] 1000mg Take 1 [facility] 1,000 mg 4-30 tablet by ity of tablet 00:00: mouth 2 (two) Medical times Branch daily with meals. blood sugar 0 Yes [id number] Use daily [facility] diagnostic 4-30 Dx E11.65 ity of (ONETOUCH 00:00: [place] VERIO TEST 00 Medical STRIPS) Branch strip lancets 0 Yes [id number] Use daily Univers (ONE TOUCH 4-30 Dx E11.65 ity of DELICA) 33 00:00: [facility] 00 Medical Branch gabapentin 2020-0 Yes [id number] 600mg Take 1 [facility] 600 mg 4-30 tablet by ity of tablet 00:00: mouth 2 [place] 00 (two) Medical times Branch daily. lisinopriL 0 Yes [id number] 2.5mg Take 1 [facility] 2.5 mg 4-30 tablet by ity of tablet 00:00: mouth [place] 00 daily. Medical Branch fenofibrate 0 Yes 134mg Take 1 Uni vers micronized 4-30 capsule by ity of 134 mg 00:00: mouth [facility] 00 daily. Medical Branch metFORMIN 0 Yes [id number] 1000mg Take 1 [facility] 1,000 mg 4-30 tablet by ity of tablet 00:00: mouth 2 [place] (two) Medical times Branch daily with meals. blood sugar Yes [id number] Use daily [facility] diagnostic 4-30 Dx E11.65 ity of (ONETOUCH 00:00: [place] VERIO TEST 00 Medical STRIPS) Branch strip lancets Yes [id number] Use daily Univers (ONE TOUCH 4-30 Dx E11.65 ity of DELICA) 33 00:00: [facility] Medical Branch gabapentin 2020-0 Yes [id number] 600mg Take 1 [facility] 600 mg 4-30 tablet by ity of tablet 00:00: mouth 2 [place] 00 (two) Medical times Branch daily. lisinopriL 2020-0 Yes [id number] 2.5mg Take 1 [facility] 2.5 mg 4-30 tablet by ity of tablet 00:00: mouth [place] 00 daily. Medical Branch gabapentin 2020-0 2022- No [id number] 600mg Take 1 [facility] 600 mg 4-30 07-03 tablet by ity of tablet 00:00: 00:00 mouth 2 [place] 00 :00 (two) Medical times Branch daily. gabapentin 2020-0 2022- No [id number] 600mg Take 1 [facility] 600 mg 4-30 07-03 tablet by ity of tablet 00:00: 00:00 mouth 2 [place] 00 :00 (two) Medical times Branch daily. insulin 2022- No [id number] 35U inject 35 [facility] degludec 11-07 02-20 Units ity of (TRESIBA 00:00: 00:00 under the [place] FLEXTOUCH 00 :00 skin 2 Medical U-100) 100 (two) Branch unit/mL (3 times mL) InPn daily. atorvastati 2022- No 40mg Take 1 Uni vers n 40 mg 11-07-20 tablet by ity of tablet 00:00: 00:00 mouth at [place] 00 :00 bedtime. Medical Branch insulin 2022- No [id number] 35U inject 35 [facility] degludec 11-07-20 Units ity of (TRESIBA 00:00: 00:00 under the [place] FLEXTOUCH 00 :00 skin 2 Medical U-100) 100 (two) Branch unit/mL (3 times mL) InPn daily. atorvastati 2022- No 40mg Take 1 Uni vers n 40 mg 11-07-20 tablet by ity of tablet 00:00: 00:00 mouth at [place] 00 :00 bedtime. Medical Branch glimepiride 1-0 No 1mg 4 [...] 00 mL) subcutaneou s pen injector Victoza 2021-0 No (18 3-Hcristofer 0.6 3-18 mg/3 mg/0.1 mL 00:00: mL) [...] 600 mg 2-23 tablet 00:00: 00 Victoza 2020-1 No (18 3-Christofer [...] 00 MV,CA,MIN/I 2020-0 Yes Take by [facility] [place] CORREA/FA/GUAR 5-[address] [facility]/CAFF 11:53: [facility] (ONE-A-DAY 29 l WOMEN'S ACTIVE ORAL) MV,CA,MIN/I 2020-0 Yes Take by [facility] SUNNY/FA/GUAR 5-14 mouth. [facility] 11:53: Hospita (ONE-A-DAY 29 l WOMEN'S ACTIVE ORAL) MV,CA,MIN/I 2020-0 Yes Take by Met [facility] SUNNY/FA/GUAR 5-14 mouth. [facility] 11:53: Hospita (ONE-A-DAY 29 l WOMEN'S ACTIVE ORAL) MV,CA,MIN/I 2020-0 Yes Take by [facility] SUNNY/FA/GUAR 5-14 mouth. [facility] 11:53: Hospita (ONE-A-DAY 29 l WOMEN'S ACTIVE ORAL) MV,CA,MIN/I 2020-0 Yes Take by [facility] SUNNY/FA/GUAR 5-14 mouth. [facility] 11:53: Hospita (ONE-A-DAY 29 l WOMEN'S ACTIVE ORAL) MV,CA,MIN/I 2020-0 Yes Take by [facility] SUNNY/FA/GUAR 5-14 mouth. [facility] 11:53: Hospita (ONE-A-DAY 29 l WOMEN'S ACTIVE ORAL) MV,CA,MIN/I 2020-0 Yes Take by [facility] SUNNY/FA/GUAR 5-14 mouth. [facility] 11:53: Hospita (ONE-A-DAY 29 l WOMEN'S ACTIVE ORAL) MV,CA,MIN/I 2020-0 Yes Take by [facility] SUNNY/FA/GUAR 5-14 mouth. [facility] 11:53: Hospita (ONE-A-DAY 29 l WOMEN'S ACTIVE ORAL) MV,CA,MIN/I 2020-0 Yes Take by [facility] SUNNY/FA/GUAR 5-14 mouth. [facility] 11:53: Hospita (ONE-A-DAY 29 l WOMEN'S ACTIVE ORAL) MV,CA,MIN/I 2020-0 Yes Take by [facility] SUNNY/FA/GUAR 5-14 mouth. [facility] 11:53: Hospita (ONE-A-DAY 29 l WOMEN'S ACTIVE ORAL) MV,CA,MIN/I 2020-0 Yes Take by [facility] SUNNY/FA/GUAR 5-14 mouth. [facility] 11:53: Hospita (ONE-A-DAY 29 l WOMEN'S ACTIVE ORAL) MV,CA,MIN/I 2020-0 Yes Take by [facility] SUNNY/FA/GUAR 5-14 mouth. [facility] 11:53: Hospita (ONE-A-DAY 29 l WOMEN'S ACTIVE ORAL) MV,CA,MIN/I 2020-0 Yes Take by [facility] SUNNY/FA/GUAR 5-14 mouth. [facility] 11:53: Hospita (ONE-A-DAY 29 l WOMEN'S ACTIVE ORAL) MV,CA,MIN/I 2020-0 Yes Take by [facility] SUNNY/FA/GUAR 5-14 mouth. [facility] 11:53: Hospita (ONE-A-DAY 29 l WOMEN'S ACTIVE ORAL) MV,CA,MIN/I 2020-0 Yes Take by [facility] SUNNY/FA/GUAR 5-14 mouth. [facility] 11:53: Hospita (ONE-A-DAY 29 l WOMEN'S ACTIVE ORAL) MV,CA,MIN/I 2020-0 Yes Take by [facility] SUNNY/FA/GUAR 5-14 mouth. [facility] 11:53: Hospita (ONE-A-DAY 29 l WOMEN'S ACTIVE ORAL) MV,CA,MIN/I 2020-0 Yes Take by [facility] SUNNY/FA/GUAR 5-14 mouth. [facility] 11:53: Hospita (ONE-A-DAY 29 l WOMEN'S ACTIVE ORAL) MV,CA,MIN/I 2020-0 Yes Take by [facility] SUNNY/FA/GUAR 5-14 mouth. [facility] 11:53: Hospita (ONE-A-DAY 29 l WOMEN'S ACTIVE ORAL) MV,CA,MIN/I 2020-0 Yes Take by [facility] SUNNY/FA/GUAR 5-14 mouth. [facility] 11:53: Hospita (ONE-A-DAY 29 l WOMEN'S ACTIVE ORAL) MV,CA,MIN/I 2020-0 Yes Take by [facility] SUNNY/FA/GUAR 5-14 mouth. [facility] 11:53: Hospita (ONE-A-DAY 29 l WOMEN'S ACTIVE ORAL) MV,CA,MIN/I 2020-0 Yes Take by [facility] SUNNY/FA/GUAR 5-[address] [facility] 11:[facility]: [facility]ospita (ONE-A-DAY 29 l WOMEN'S ACTIVE ORAL) MV,CA,MIN/I 2020-0 Yes Take by [facility] SUNNY/FA/GUAR 5-[address] [facility] 11:53: Hospita (ONE-A-DAY 29 l WOMEN'S ACTIVE ORAL) MV,CA,MIN/I 2020-0 Yes Take by [facility] [place] CORREA/FA/GUAR 5-[address] [facility] 11:53: Hospita (ONE-A-DAY [...] tablet 5-12 00:00: 00 nystatin-tr 2020-0 Yes [id number] Q.25D Apply [facility] iamcinolone 4-[address] (MYCOLOG 00:00: 4 (four) Hospi ta II) 00 times a l 100,000-0.1 day as unit/g-% needed cream (vaginal itching or infection) . To outer vagina nystatin-tr 2020-0 Yes [id number] Q.25D Apply [facility] iamcinolone 4-[address] (MYCOLOG 00:00: 4 (four) Hospi ta II) 00 times a l 100,000-0.1 day as unit/g-% needed cream (vaginal itching or infection) . To outer vagina nystatin-tr 2020-0 Yes [id number] Q.25D Apply [facility] iamcinolone 4-[address] (MYCOLOG 00:00: 4 (four) Hospi ta II) 00 times a l 100,000-0.1 day as unit/g-% needed cream (vaginal itching or infection) . To outer vagina nystatin-tr 2020-0 Yes [id number] Q.25D Apply [facility] iamcinolone 4-[address] (MYCOLOG 00:00: 4 (four) Hospi ta II) 00 times a l 100,000-0.1 day as unit/g-% needed cream (vaginal itching or infection) . To outer vagina nystatin-tr 2020-0 Yes [id number] Q.25D Apply [facility] iamcinolone 4-[address] (MYCOLOG 00:00: 4 (four) Hospi ta II) 00 times a l 100,000-0.1 day as unit/g-% needed cream (vaginal itching or infection) . To outer vagina nystatin-tr 2020-0 Yes [id number] Q.25D Apply [facility] iamcinolone 4-[address] (MYCOLOG 00:00: 4 (four) Hospi ta II) 00 times a l 100,000-0.1 day as unit/g-% needed cream (vaginal itching or infection) . To outer vagina nystatin-tr 2020-0 Yes [id number] Q.25D Apply [facility] iamcinolone 4-[address] (MYCOLOG 00:00: 4 (four) Hospi ta II) 00 times a l 100,000-0.1 day as unit/g-% needed cream (vaginal itching or infection) . To outer vagina nystatin-tr 2020-0 Yes [id number] Q.25D Apply [facility] iamcinolone 4-[address] (MYCOLOG 00:00: 4 (four) Hospi ta II) 00 times a l 100,000-0.1 day as unit/g-% needed cream (vaginal itching or infection) . To outer vagina nystatin-tr 2020-0 Yes [id number] Q.25D Apply [facility] iamcinolone 4-[address] (MYCOLOG 00:00: 4 (four) Hospi ta II) 00 times a l 100,000-0.1 day as unit/g-% needed cream (vaginal itching or infection) . To outer vagina nystatin-tr 2020-0 Yes [id number] Q.25D Apply [facility] iamcinolone 4-[address] (MYCOLOG 00:00: 4 (four) Hospi ta II) 00 times a l 100,000-0.1 day as unit/g-% needed cream (vaginal itching or infection) . To outer vagina nystatin-tr 2020-0 Yes [id number] Q.25D Apply [facility] iamcinolone 4-[address] (MYCOLOG 00:00: 4 (four) Hospi ta II) 00 times a l 100,000-0.1 day as unit/g-% needed cream (vaginal itching or infection) . To outer vagina nystatin-tr 2020-0 Yes [id number] Q.25D Apply [facility] iamcinolone 4-[address] (MYCOLOG 00:00: 4 (four) Hospi ta II) 00 times a l 100,000-0.1 day as unit/g-% needed cream (vaginal itching or infection) . To outer vagina nystatin-tr 2020-0 Yes [id number] Q.25D Apply [facility] iamcinolone 4-[address] (MYCOLOG 00:00: 4 (four) Hospi ta II) 00 times a l 100,000-0.1 day as unit/g-% needed cream (vaginal itching or infection) . To outer vagina nystatin-tr 2020-0 Yes [id number] Q.25D Apply [facility] iamcinolone 4-[address] (MYCOLOG 00:00: 4 (four) Hospi ta II) 00 times a l 100,000-0.1 day as unit/g-% needed cream (vaginal itching or infection) . To outer vagina nystatin-tr 2020-0 Yes [id number] Q.25D Apply [facility] iamcinolone 4-[address] (MYCOLOG 00:00: 4 (four) Hospi ta II) 00 times a l 100,000-0.1 day as unit/g-% needed cream (vaginal itching or infection) . To outer vagina nystatin-tr 2020-0 Yes [id number] Q.25D Apply [facility] iamcinolone 4-[address] (MYCOLOG 00:00: 4 (four) Hospi ta II) 00 times a l 100,000-0.1 day as unit/g-% needed cream (vaginal itching or infection) . To outer vagina nystatin-tr 2020-0 Yes [id number] Q.25D Apply [facility] iamcinolone 4-[address] (MYCOLOG 00:00: 4 (four) Hospi ta II) 00 times a l 100,000-0.1 day as unit/g-% needed cream (vaginal itching or infection) . To outer vagina nystatin-tr 2020-0 Yes [id number] Q.25D Apply [facility] iamcinolone 4-[address] (MYCOLOG 00:00: 4 (four) Hospi ta II) 00 times a l 100,000-0.1 day as unit/g-% needed cream (vaginal itching or infection) . To outer vagina nystatin-tr 2020-0 Yes [id number] Q.25D Apply [facility] iamcinolone 4-[address] (MYCOLOG 00:00: 4 (four) Hospi ta II) 00 times a l 100,000-0.1 day as unit/g-% needed cream (vaginal itching or infection) . To outer vagina nystatin-tr 2020-0 Yes [id number] Q.25D Apply [facility] iamcinolone 4-[address] (MYCOLOG 00:00: 4 (four) Hospi ta II) 00 times a l 100,000-0.1 day as unit/g-% needed cream (vaginal itching or infection) . To outer vagina nystatin-tr 2020-0 Yes [id number] Q.25D Apply [facility] iamcinolone 4-[address] (MYCOLOG 00:00: 4 (four) Hospi ta II) 00 times a l 100,000-0.1 day as unit/g-% needed cream (vaginal itching or infection) . To outer vagina nystatin-tr 2020-0 Yes [id number] Q.25D Apply [facility] iamcinolone 4-[address] (MYCOLOG 00:00: 4 (four) Hospi ta II) 00 times a l 100,000-0.1 day as unit/g-% needed cream (vaginal itching or infection) . To outer vagina nystatin-tr 2020-0 Yes [id number] Q.25D Apply [facility] iamcinolone 4-[address] [...] subcutaneou s pen injector HEParin 2020-0 Yes [id number] Q7D [facility] (porcine) 3-24 st injection 17:00: Hospita 20,000 00 l Units HEParin 2020-0 Yes [id number] Q7D Meth ally (porcine) 3-24 st injection 17:00: Hospita 20,000 00 l Units HEParin 2020-0 Yes [id number] Q7D Meth ally (porcine) 3-24 st injection 17:00: Hospita 20,000 00 l Units HEParin 2020-0 Yes [id number] Q7D Meth ally (porcine) 3-24 st injection 17:00: Hospita 20,000 00 l Units HEParin 2020-0 Yes [id number] Q7D Meth ally (porcine) 3-24 st injection 17:00: Hospita 20,000 00 l Units HEParin 2020-0 Yes [id number] Q7D Meth ally (porcine) 3-24 st injection 17:00: Hospita 20,000 00 l Units HEParin 2020-0 Yes [id number] Q7D Meth ally (porcine) 3-24 st injection 17:00: Hospita 20,000 00 l Units HEParin 2020-0 Yes [id number] Q7D Meth ally (porcine) 3-24 st injection 17:00: Hospita 20,000 00 l Units HEParin 2020-0 Yes [id number] Q7D Meth ally (porcine) 3-24 st injection 17:00: Hospita 20,000 00 l Units HEParin 2020-0 Yes [id number] Q7D Meth ally (porcine) 3-24 st injection 17:00: Hospita 20,000 00 l Units HEParin 2020-0 Yes [id number] Q7D Meth ally (porcine) 3-24 st injection 17:00: Hospita 20,000 00 l Units HEParin 2020-0 Yes [id number] Q7D Meth ally (porcine) 3-24 st injection 17:00: Hospita 20,000 00 l Units HEParin 2020-0 Yes [id number] Q7D Meth ally (porcine) 3-24 st injection 17:00: Hospita 20,000 00 l Units HEParin 2020-0 Yes [id number] Q7D Meth ally (porcine) 3-24 st injection 17:00: Hospita 20,000 00 l Units HEParin 2020-0 Yes [id number] Q7D Meth ally (porcine) 3-24 st injection 17:00: Hospita 20,000 00 l Units HEParin 2020-0 Yes [id number] Q7D Meth ally (porcine) 3-24 st injection 17:00: Hospita 20,000 00 l Units HEParin 2020-0 Yes [id number] Q7D Meth ally (porcine) 3-24 st injection 17:00: Hospita 20,000 00 l Units HEParin 2020-0 Yes [id number] Q7D Meth ally (porcine) 3-24 st injection 17:00: Hospita 20,000 00 l Units HEParin 2020-0 Yes [id number] Q7D Meth ally (porcine) 3-24 st injection 17:00: Hospita 20,000 00 l Units HEParin 2020-0 Yes [id number] Q7D Meth ally (porcine) 3-24 st injection 17:00: Hospita 20,000 00 l Units HEParin 2020-0 Yes [id number] Q7D Meth ally (porcine) 3-24 st injection 17:00: Hospita 20,000 00 l Units HEParin 2020-0 Yes [id number] Q7D Meth ally (porcine) 3-24 st injection 17:00: Hospita 20,000 00 l Units HEParin 2020-0 Yes [id number] Q7D Meth ally (porcine) 3-24 st injection 17:00: Hospita 20,000 00 l Units conjugated 2020-0 Yes [id number] Apply 0.5 [facility] estrogens 3-[address] (Premarin) 00:00: vaginally Ho spita 0.625 00 either l mg/gram internally vaginal (applicato cream r) or with finger to outer vagina twice weekly at night conjugated 2020-0 Yes [id number] Apply 0.5 [facility] estrogens 3-[address] (Premarin) 00:00: vaginally Ho spita 0.625 00 either l mg/gram internally vaginal (applicato cream r) or with finger to outer vagina twice weekly at night conjugated 2020-0 Yes [id number] Apply 0.5 [facility] estrogens 3-[address] (Premarin) 00:00: vaginally Ho sp[facility] 0.625 00 either l mg/gram internally vaginal (applicato cream r) or with finger to outer vagina twice weekly at night conjugated 2020-0 Yes [id number] Apply 0.5 [facility] estrogens 3-[address] (Premarin) 00:00: vaginally Ho sp[facility] 0.625 00 either l mg/gram internally vaginal (applicato cream r) or with finger to outer vagina twice weekly at night conjugated 2020-0 Yes [id number] Apply 0.5 [facility] estrogens 3-[address] (Premarin) 00:00: vaginally Ho spita 0.625 00 either l mg/gram internally vaginal (applicato cream r) or with finger to outer vagina twice weekly at night conjugated 2020-0 Yes [id number] Apply 0.5 [facility] estrogens 3-[address] (Premarin) 00:00: vaginally Ho spita 0.625 00 either l mg/gram internally vaginal (applicato cream r) or with finger to outer vagina twice weekly at night conjugated 2020-0 Yes [id number] Apply 0.5 [facility] estrogens 3-[address] (Premarin) 00:00: vaginally [facility] spita 0.625 00 either l mg/gram internally vaginal (applicato cream r) or with finger to outer vagina twice weekly at night conjugated 2020-0 Yes [id number] Apply 0.5 [facility] estrogens 3-[address] (Premarin) 00:00: vaginally [facility] spita 0.625 00 either l mg/gram internally vaginal (applicato cream r) or with finger to outer vagina twice weekly at night conjugated 2020-0 Yes [id number] Apply 0.5 [facility] estrogens 3-[address] (Premarin) 00:00: vaginally Ho sp[facility] 0.625 00 either l mg/gram internally vaginal (applicato cream r) or with finger to outer vagina twice weekly at night conjugated 2020-0 Yes [id number] Apply 0.5 [facility] estrogens 3-[address] (Premarin) 00:00: vaginally Ho spita 0.625 00 either l mg/gram internally vaginal (applicato cream r) or with finger to outer vagina twice weekly at night conjugated 2020-0 Yes [id number] Apply 0.5 [facility] estrogens 3-[address] (Premarin) 00:00: vaginally Ho sp[facility] 0.625 00 either l mg/gram internally vaginal (applicato cream r) or with finger to outer vagina twice weekly at night conjugated 2020-0 Yes [id number] Apply 0.5 [facility] estrogens 3-[address] (Premarin) 00:00: vaginally Ho sp[facility] 0.625 00 either l mg/gram internally vaginal (applicato cream r) or with finger to outer vagina twice weekly at night conjugated 2020-0 Yes [id number] Apply 0.5 [facility] estrogens 3-[address] (Premarin) 00:00: vaginally [facility] sp[facility] 0.625 00 either l mg/gram internally vaginal (applicato cream r) or with finger to outer vagina twice weekly at night conjugated 2020-0 Yes [id number] Apply 0.5 [facility] estrogens 3-[address] (Premarin) 00:00: vaginally [facility] sp[facility] 0.625 00 either l mg/gram internally vaginal (applicato cream r) or with finger to outer vagina twice weekly at night conjugated 2020-0 Yes [id number] Apply 0.5 [facility] estrogens 3-[address] (Premarin) 00:00: vaginally [facility] sp[facility] 0.625 00 either l mg/gram internally vaginal (applicato cream r) or with finger to outer vagina twice weekly at night conjugated 2020-0 Yes [id number] Apply 0.5 [facility] estrogens 3-[address] (Premarin) 00:00: vaginally Ho sp[facility] 0.625 00 either l mg/gram internally vaginal (applicato cream r) or with finger to outer vagina twice weekly at night conjugated 2020-0 Yes [id number] Apply 0.5 [facility] estrogens 3-[address] (Premarin) 00:00: vaginally Ho spita 0.625 00 either l mg/gram internally vaginal (applicato cream r) or with finger to outer vagina twice weekly at night conjugated 2020-0 Yes [id number] Apply 0.5 [facility] estrogens 3-[address] (Premarin) 00:00: vaginally Ho spita 0.625 00 either l mg/gram internally vaginal (applicato cream r) or with finger to outer vagina twice weekly at night conjugated 2020-0 Yes [id number] Apply 0.5 [facility] estrogens 3-[address] (Premarin) 00:00: vaginally Ho spita 0.625 00 either l mg/gram internally vaginal (applicato cream r) or with finger to outer vagina twice weekly at night conjugated 2020-0 Yes [id number] Apply 0.5 [facility] estrogens 3-[address] (Premarin) 00:00: vaginally Ho spita 0.625 00 either l mg/gram internally vaginal (applicato cream r) or with finger to outer vagina twice weekly at night conjugated 2020-0 Yes [id number] Apply 0.5 [facility] estrogens 3-[address] (Premarin) 00:00: vaginally Ho spita 0.625 00 either l mg/gram internally vaginal (applicato cream r) or with finger to outer vagina twice weekly at night conjugated 2020-0 Yes [id number] Apply 0.5 [facility] estrogens 3-[address] (Premarin) 00:00: vaginally Ho sp[facility] 0.625 00 either l mg/gram internally vaginal (applicato cream r) or with finger to outer vagina twice weekly at night conjugated 2020-0 Yes [id number] Apply 0.5 [facility] estrogens 3-[address] (Premarin) 00:00: vaginally Ho spita 0.625 00 either l mg/gram internally vaginal (applicato cream r) or with finger to outer vagina twice weekly at night amb custom 2020-0 Yes [facility] compound 3- vaginal st 00:00: cream: 6% Hospita 00 gabapentin l , 2% Lidocaine, 2 % baclofen in water washable based. Apply 0.5 gram to outer vagina once or twice daily. amb custom 2020-0 Yes [place] compound 3- vaginal st 00:00: cream: 6% Hospita 00 gabapentin l , 2% Lidocaine, 2 % baclofen in water washable based. Apply 0.5 gram to outer vagina once or twice daily. amb custom 2020-0 Yes [place] [facility] compound 3- vaginal st 00:00: cream: 6% Hospita 00 gabapentin l , 2% Lidocaine, 2 % baclofen in water washable based. Apply 0.5 gram to outer vagina once or twice daily. amb custom 2020-0 Yes [place] [facility] [address] 00:00: cream: 6% Hospita 00 gabapentin l , 2% Lidocaine, 2 % baclofen in water washable based. Apply 0.5 gram to outer vagina once or twice daily. amb custom 2020-0 Yes [place] compound 09-[address] 00:00: cream: 6% Hospita 00 gabapentin l , 2% Lidocaine, 2 % baclofen in water washable based. Apply 0.5 gram to outer vagina once or twice daily. amb custom 2020-0 Yes [place] [facility] compound 09-[address] 00:00: cream: 6% Hospita 00 gabapentin l , 2% Lidocaine, 2 % baclofen in water washable based. Apply 0.5 gram to outer vagina once or twice daily. amb custom 2020-0 Yes [place] compound [address] 00:00: cream: 6% Hospita 00 gabapentin l , 2% Lidocaine, 2 % baclofen in water washable based. Apply 0.5 gram to outer vagina once or twice daily. amb custom 2020-0 Yes [place] compound 3- vaginal st 00:00: cream: 6% Hospita 00 gabapentin l , 2% Lidocaine, 2 % baclofen in water washable based. Apply 0.5 gram to outer vagina once or twice daily. amb custom 2020-0 Yes [place] compound 3- vaginal st 00:00: cream: [...] twice daily. amb custom 2020-0 Yes [facility] compound 3- vaginal st 00:00: cream: 6% Hospita 00 gabapentin l , 2% Lidocaine, 2 % baclofen in water washable based. Apply 0.5 gram to outer vagina once or twice daily. amb custom 2020-0 Yes [facility] compound 3- vaginal st 00:00: cream: 6% [facility]ospita 00 gabapentin l , 2% Lidocaine, 2 % baclofen in water washable based. Apply 0.5 gram to outer vagina once or twice daily. amb custom 2020-0 Yes [facility] compound 3- vaginal st 00:00: cream: 6% Hospita 00 gabapentin l , 2% Lidocaine, 2 % baclofen in water washable based. Apply 0.5 gram to outer vagina once or twice daily. amb custom 2020-0 Yes [facility] compound 09-[address] 00:00: cream: 6% Hospita 00 gabapentin l , 2% Lidocaine, 2 % baclofen in water washable based. Apply 0.5 gram to outer vagina once or twice daily. amb custom 2020-0 Yes [facility] compound 3- vaginal st 00:00: cream: 6% Hospita 00 gabapentin l , 2% Lidocaine, 2 % baclofen in water washable based. Apply 0.5 gram to outer vagina once or twice daily. amb custom 2020-0 Yes [facility] compound 3- vaginal st 00:00: cream: 6% Hospita 00 gabapentin l , 2% Lidocaine, 2 % baclofen in water washable based. Apply 0.5 gram to outer vagina once or twice daily. amb custom 2020-0 Yes [facility] compound 3- vaginal st 00:00: cream: [...] once or twice daily. FREESTYLE 2020-0 Yes [id number] 1{each} 1 Each [facility] 14 3-03 every 14 ity of DAY SENSOR 00:00: (fourteen) [place] [facility] days. [facility] FREESTYLE 2020-0 Yes [id number] 1{each} 1 Each [facility] 14 3-03 daily. ity of DAY READER 00:00: [facility] 00 Medical Branch FREESTYLE 2020-0 Yes [id number] 1{each} 1 Each [facility] 14 3-03 every 14 ity of DAY SENSOR 00:00: (fourteen) [place] [facility] 00 days. [facility] FREESTYLE 2020-0 Yes [id number] 1{each} 1 Each [facility] 14 3-03 daily. ity of DAY READER 00:00: [place] [facility] [place] [facility] FREESTYLE 2020-0 Yes [id number] 1{each} 1 Each [facility] BRENDA 14 3-03 every 14 ity of DAY SENSOR 00:00: (fourteen) [place] [facility] 00 days. [facility] FREESTYLE 2020-0 Yes [id number] 1{each} 1 Each [facility] 14 3-03 daily. ity of DAY READER 00:00: [place] [facility] FREESTYLE 2020-0 Yes [id number] 1{each} 1 Each [facility] 14 3-03 every 14 ity of DAY SENSOR 00:00: (fourteen) [place] [facility] 00 days. [facility] FREESTYLE 2020-0 Yes [id number] 1{each} 1 Each [facility] 14 3-03 daily. ity of DAY READER 00:00: [facility] 00 Medical Branch FREESTYLE 2020-0 Yes [id number] 1{each} 1 Each [facility] 14 3-03 every 14 ity of DAY SENSOR 00:00: (fourteen) [place] [facility] 00 days. [facility] FREESTYLE 2020-0 Yes [id number] 1{each} 1 Each [facility] 14 3-03 daily. ity of DAY READER 00:00: [place] [facility] 00 [facility] FREESTYLE 2020-0 Yes [id number] 1{each} 1 Each [facility] 14 3-03 every 14 ity of DAY SENSOR 00:00: (fourteen) [place] [facility] 00 days. [facility] FREESTYLE 2020-0 Yes [id number] 1{each} 1 Each [facility] BR[facility] 14 3-03 daily. ity of DAY READER 00:00: [place] [facility] FREESTYLE 2020-0 Yes [id number] 1{each} 1 Each [facility] BR[facility] 14 3-03 every 14 ity of DAY SENSOR 00:00: (fourteen) [place] [facility] 00 days. [facility] FREESTYLE 2020-0 Yes [id number] 1{each} 1 Each [facility] BR[facility] 14 3-03 daily. ity of DAY READER 00:00: [facility] 00 Medical Branch FREESTYLE 2020-0 Yes [id number] 1{each} 1 Each [facility] BR[facility]DA 14 3-03 every 14 ity of DAY SENSOR 00:00: (fourteen) [place] [facility] 00 days. [facility] FREESTYLE 2020-0 Yes [id number] 1{each} 1 Each [facility] BR[facility]DA 14 3-03 daily. ity of DAY READER 00:00: [place] [facility] FREESTYLE 2020-0 Yes [id number] 1{each} 1 Each [facility] BR[facility]DA 14 3-03 every 14 ity of DAY SENSOR 00:00: (fourteen) [place] [facility] 00 days. [facility] FREESTYLE 2020-0 Yes [id number] 1{each} 1 Each [facility] BR[facility]DA 14 3-03 daily. ity of DAY READER 00:00: [place] [facility] FREESTYLE 2020-0 Yes [id number] 1{each} 1 Each [facility] BR[facility]DA 14 3-03 every 14 ity of DAY SENSOR 00:00: (fourteen) [place] [facility] 00 days. [facility] FREESTYLE 2020-0 Yes [id number] 1{each} 1 Each [facility] BR[facility]DA 14 3-03 daily. ity of DAY READER 00:00: [place] [facility] FREESTYLE 2020-0 Yes [id number] 1{each} 1 Each [facility] BRENDA 14 3-03 every 14 ity of DAY SENSOR 00:00: (fourteen) [place] [facility] 00 days. [facility] FREESTYLE 2020-0 Yes [id number] 1{each} 1 Each [facility] BRENDA 14 3-03 daily. ity of DAY READER 00:00: [place] [facility] FREESTYLE 2020-0 Yes [id number] 1{each} 1 Each [facility] BRENDA 14 3-03 every 14 ity of DAY SENSOR 00:00: (fourteen) [place] [facility] 00 days. [facility] FREESTYLE 2020-0 Yes [id number] 1{each} 1 Each [facility] BRENDA 14 3-03 daily. ity of DAY READER 00:00: [place] [facility] FREESTYLE 2020-0 Yes [id number] 1{each} 1 Each [facility] BRENDA 14 3-03 every 14 ity of DAY SENSOR 00:00: (fourteen) [place] [facility] 00 days. [facility] FREESTYLE 2020-0 Yes [id number] 1{each} 1 Each [facility] BRENDA 14 3-03 daily. ity of DAY READER 00:00: [place] [facility] FREESTYLE 2020-0 Yes [id number] 1{each} 1 Each [facility] BRENDA 14 3-03 every 14 ity of DAY SENSOR 00:00: (fourteen) [place] [facility] 00 days. [facility] FREESTYLE 2020-0 Yes [id number] 1{each} 1 Each [facility] BRENDA 14 3-03 [...] tablet 2-30 00:00: 00 traMADol 2018-07 Yes [id number] 50mg Take 1 [facility] vers (ULTRAM) 50 2-28 tablet by ity of mg tablet 00:00: mouth [place] 00 every 6 Medical (six) Branch hours as needed for Pain (scale 7-10). ondansetron 2018-07 Yes [id number] 4mg Take 1 [facility] (ZOFRAN) 4 2-28 tablet by ity of mg tablet 00:00: mouth [place] 00 every 8 Medical (eight) Branch hours as needed for Nausea and Vomiting (N/V). ondansetron 2018-07 Yes [id number] 4mg Take 1 [facility] (ZOFRAN) 4 2-28 tablet by ity of mg tablet 00:00: mouth [place] 00 every 8 Medical (eight) Branch hours as needed for Nausea and Vomiting (N/V). ondansetron 2018-07 Yes [id number] 4mg Take 1 [facility] (ZOFRAN) 4 2-28 tablet by ity of mg tablet 00:00: mouth [place] 00 every 8 Medical (eight) Branch hours as needed for Nausea and Vomiting (N/V). ondansetron 2018-07 Yes [id number] 4mg Take 1 Univers (ZOFRAN) 4 2-28 tablet by ity of mg tablet 00:00: mouth [place] 00 every 8 Medical (eight) Branch hours as needed for Nausea and Vomiting (N/V). ondansetron 2018-07 Yes [id number] 4mg Take 1 Univers (ZOFRAN) 4 2-28 tablet by ity of mg tablet 00:00: mouth [place] 00 every 8 Medical (eight) Branch hours as needed for Nausea and Vomiting (N/V). ondansetron 2018-07 Yes [id number] 4mg Take 1 Univers (ZOFRAN) 4 2-28 tablet by ity of mg tablet 00:00: mouth [place] 00 every 8 Medical (eight) Branch hours as needed for Nausea and Vomiting (N/V). ondansetron 2018-07 Yes [id number] 4mg Take 1 Univers (ZOFRAN) 4 2-28 tablet by ity of mg tablet 00:00: mouth [place] 00 every 8 Medical (eight) Branch hours as needed for Nausea and Vomiting (N/V). ondansetron 2018-07- No [id number] 4mg Take 1 Univers (ZOFRAN) 4 2-28 02-16 tablet by ity of mg tablet 00:00: 00:00 mouth [place] 00 :00 every 8 Medical (eight) Branch hours as needed for Nausea and Vomiting (N/V). ondansetron 2018-07- No [id number] 4mg Take 1 Univers (ZOFRAN) 4 2-28 02-16 tablet by ity of mg tablet 00:00: 00:00 mouth [place] 00 :00 every 8 Medical (eight) Branch hours as needed for Nausea and Vomiting (N/V). traMADol 2018-07- No [id number] 50mg Take 1 Un fabiana (ULTRAM) 50 2-28 11-20 tablet by it y of mg tablet 00:00: 00:00 mouth [place] 00 :00 every 6 Medical (six) Branch hours as needed for Pain (scale 7-10). traMADol 2018-07- No [id number] 50mg Take 1 Un fabiana (ULTRAM) 50 2-28 11-20 tablet by it y of mg tablet 00:00: 00:00 mouth [place] 00 :00 every 6 Medical (six) Branch hours as needed for Pain (scale 7-10). ibuprofen 2019-1 No 1mg 800 mg 2-19 [...] mg capsule 00:00: 00 hydrOXYzine 2018-0 Yes [id number] 10mg Take 1 Univers 10 mg 9-13 tablet by ity of tablet 00:00: mouth [place] 00 every 6 Medical (six) Branch hours. hydrOXYzine 0 Yes [id number] 10mg Take 1 Univers 10 mg 9-13 tablet by ity of tablet 00:00: mouth [place] 00 every 6 Medical (six) Branch hours. hydrOXYzine 2018-0 Yes [id number] 10mg Take 1 Univers 10 mg 9-13 tablet by ity of tablet 00:00: mouth [place] 00 every 6 Medical (six) Branch hours. hydrOXYzine 2018-0 Yes [id number] 10mg Take 1 Univers 10 mg 9-13 tablet by ity of tablet 00:00: mouth [place] 00 every 6 Medical (six) Branch hours. hydrOXYzine 2018-0 Yes [id number] 10mg Take 1 Univers 10 mg 9-13 tablet by ity of tablet 00:00: mouth [place] 00 every 6 Medical (six) Branch hours. hydrOXYzine 2018- Yes [id number] 10mg Take 1 Univers 10 mg 9-13 tablet by ity of tablet 00:00: mouth [place] 00 every 6 Medical (six) Branch hours. hydrOXYzine 2019-0 Yes [id number] 10mg Take 1 Univers 10 mg 9-13 tablet by ity of tablet 00:00: mouth [place] 00 every 6 Medical (six) Branch hours. hydrOXYzine 2018-0 3- No [id number] 10mg Take 1 Univers 10 mg 9-13 02-16 tablet by ity of tablet 00:00: 00:00 mouth [place] 00 :00 every 6 Medical (six) Branch hours. hydrOXYzine 2018-0 3- No [id number] 10mg Take 1 Univers 10 mg 9-13 [...] No 1mg tablet 08-08 00:00: 00 metformin 2018- No 1mg 1,000 mg 1-13 tablet 00:00: 00 metformin 2018-1 No 1mg 1,000 mg 1-13 tablet 00:00: 00 metformin 2018-1 No 1mg 1,000 mg 1-13 tablet 00:00: 00 metformin 2017-1 No 1mg 1,000 mg 1-13 tablet 00:00: [...] capsule,ext 00:00: ended 00 release Lexapro 20 2017-0 No 1mg mg tablet [...] mg 9-27 capsule,ext 00:00: ended 00 release Claritin 10 [...] 1mg 875 mg 9- tablet 00:00: 00 loratadine 2018-0 Yes 10mg [...] Abilify 5 2016-0 No 1mg mg tablet 7 00:00: 00 [...] Abilify 5 2017-0 No 1mg mg tablet 10-19 00:00: 00 Lexapro 20 2017-0 No 15mg mg tablet 10-19 00:00: 00 trazodone 2017-0 No 1mg 150 mg - tablet 00:00: 00 Abilify 5 2017-0 No 1mg mg tablet 10-19 00:00: 00 Lexapro 20 2017-0 No 15mg [...] 00 trazodone 2017-0 No 1mg 150 mg -11 tablet 00:00: 00 Abilify 5 2016-0 No 1mg mg tablet 10-19 00:00: 00 Lexapro 20 2017-0 No 15mg mg tablet 10-19 00:00: 00 trazodone 2017-0 No 1mg 150 mg 10-19 tablet 00:00: 00 Carvedilol 2016-2022- No [id number] 6.25mg Take 1 Andreea 6.25 MG 10-18 tablet by Seybol d oral Tab 00:00: 00:00 mouth 2 - 00 :00 times Externa daily l (with meals) MethIMAzole 2016-2022- No [id number] 10mg Take 1 Andreea 10 MG oral 10-18 tablet by Sey bold Tab 00:00: 00:00 mouth - 00 :00 daily Externa (with l breakfast) Lexapro 20 2017-0 No 15mg mg tablet 09-14 00:00: 00 Abilify 5 2017-0 No 1mg [...] No 1mg mg tablet 2-08 00:00: 00 Abilif2015-07 No 1mg mg tablet [...] No 1mg mg capsule 4- 00:00: 00 lisinopril 2016-0 No 1mg 5 [...] doxepin 25 2015-0 No 13mg mg capsule 28 00:00: 00 Effexor XR 2016-0 No 1mg [...] doxepin 10 2016-0 No 12mg mg capsule -14 00:00: 00 [...] capsule 2- 00:00: 00 Paxil 20 mg 2014-07 No 1mg tablet - 00:00: 00 Paxil 20 mg 1 No 1mg tablet - 00:00: 00 Paxil [...] 1mg 1,000 mg 7-08 tablet 00:00: 00 lisinopril 2015-0 No 1mg [...] 1,000 mg 08-07 tablet 00:00: 00 glimepiride 2015-0 No 1mg 4 mg tablet 08-07 00:00: 00 metformin 2015-0 No 1mg 1,000 mg 08-07 tablet 00:00: 00 Vistaril 50 2014-0 No 1mg mg capsule 08-07 00:00: 00 Vistaril 50 2014-0 No 1mg mg capsule 08-07 00:00: 00 metformin 2015-0 No 1mg 1,000 mg 08-07 tablet 00:00: 00 lisinopril 2015-0 No 1mg 5 mg tablet 08-07 00:00: 00 metformin 2015-0 No 1mg 1,000 mg 08-07 tablet 00:00: 00 glimepiride 2014-0 No 1mg 4 mg tablet 08-07 00:00: 00 metformin 2015-0 No 1mg 1,000 mg -28 tablet 00:00: 00 Vistaril 50 2015-0 No 1mg mg capsule 08-07 00:00: 00 Vistaril 50 2014-0 No 1mg mg capsule 08-07 00:00: 00 glimepiride 2015-0 No 1mg 4 mg tablet 08-07 00:00: 00 lisinopril 2015-0 No 1mg 5 mg tablet 08-07 00:00: 00 metformin 2015-0 No 1mg 1,000 mg 08-07 tablet 00:00: 00 glimepiride 2015-0 No 1mg [...] mg 08-07 tablet 00:00: 00 Vistaril 50 2015-0 No [...] mg 08-07 tablet 00:00: 00 Vistaril 50 2015-0 No [...] [place] Strips ( [facility] T[facility]) [facility]- Yes Univers Blood 2-14 ity of Glucose 00:00: [place] Strips ( Medical TOUCH Branch COMBO) [facility] 2013- Yes Univers Blood 2-14 ity of Glucose 00:00: [place] Strips ( Medical TOUCH Branch COMBO) [facility] 2013- Yes Univers Blood 2-14 ity of Glucose 00:00: [place] Strips ( Medical TOUCH Branch COMBO) [facility] 2013- Yes Univers Blood 2-14 ity of Glucose 00:00: [place] Strips ( Medical TOUCH Branch COMBO) [facility] 2013- Yes Univers Blood 2-14 ity of Glucose 00:00: [place] Strips ( Medical TOUCH Branch COMBO) [facility] 2013- Yes Univers Blood [...] Strips (ONE 00 Medical TOUCH Branch COMBO) [facility] Blood-Gluc[facility] Yes Univer s se Meter [...] MONITORING) Branch Kit Immunizations Ordered Immunization Filled Date Status Comments Sour ce Name Immunization Name Influenza High Dose 2022-06-02 Completed Unive rsity of 00:00:00 [facility] Influenza Virus 2022-06-02 Completed Andreea fermin Vaccine, High Dose, 00:00:00 - Ext ernal Age 65 And Up Moderna COVID-19 2021-07-24 Completed Vaccine 00:00:00 Moderna [...] 00:00:00 Covid-19 Vaccine 2021-07-24 Completed Andreea aceves Moderna (Spikevax), 00:00:00 - Ext ernal Mrna-lnp, Florentin Protein, Pf Covid-19 Vaccine 2021-07-24 Completed Andreea aceves Moderna (Spikevax), 00:00:00 - Ext ernal Mrna-lnp, Florentin Protein, Pf Covid-19 Vaccine 2021-07-24 Completed Andreea aceves Moderna (Spikevax), 00:00:00 - Ext ernal Mrna-lnp, Florentin Protein, Pf Covid-19 Vaccine 2021-07-24 Completed Andreea aceves Moderna (Spikevax), 00:00:00 - Ext ernal Mrna-lnp, Florentin Protein, Pf Covid-19 Vaccine 2021-07-24 Completed Andreea aceves Moderna (Spikevax), 00:00:00 - Ext ernal Mrna-lnp, Florentin Protein, Pf Covid-19 Vaccine 2021-07-24 Completed Andreea aceves Moderna (Spikevax), 00:00:00 - Ext ernal Mrna-lnp, Florentin Protein, Pf Covid-19 Vaccine 2021-07-24 Completed Andreea aceves Moderna (Spikevax), 00:00:00 - Ext ernal Mrna-lnp, Florentin Protein, Pf Covid-19 Vaccine 2021-07-24 Completed Andreea aceves Moderna (Spikevax), 00:00:00 - Ext ernal Mrna-lnp, Florentin Protein, Pf Pneumococcal 2020-05-21 Completed [...] [facility] Pneumococcal 2020-05-21 Completed Andreea Seybo ld Vaccine, 00:00:00 - External Polysaccharide Tdap- (Boostrix, 2020-05-21 Completed Andreea S eybold Adacel) 00:00:00 - External Pneumococcal 2020-05-21 Completed Andreea Seybo ld Vaccine, 00:00:00 - External Polysaccharide Tdap- (Boostrix, 2020-05-21 Completed Andreea S eybold Adacel) 00:00:00 - External Pneumococcal 2020-05-21 Completed Andreea Seybo ld Vaccine, 00:00:00 - External Polysaccharide Tdap- (Boostrix, 2020-05-21 Completed Andreea S eybold Adacel) 00:00:00 - External Pneumococcal 2020-05-21 Completed Andreea Seybo ld Vaccine, 00:00:00 - External Polysaccharide Tdap- (Boostrix, 2020-05-21 Completed Andreea S eybold Adacel) 00:00:00 - External Pneumococcal 2020-05-21 Completed Andreea Seybo ld Vaccine, 00:00:00 - External Polysaccharide Tdap- (Boostrix, 2020-05-21 Completed Andreea Rhodes eybold Adacel) 00:00:00 - External MMR 2013-07-25 Completed University of 00:00:00 [...] Measles, Mumps, 2013-07-25 Completed Mildred ey Seybold Rubella 00:00:00 - External MMR- Measles, Mumps, 2013-07-25 Completed Mildred ey Seybold Rubella 00:00:00 - External MMR- Measles, Mumps, 2013-07-25 Completed Mildred ey Seybold Rubella 00:00:00 - External MMR- Measles, Mumps, 2013-07-25 Completed Mildred ey Seybold Rubella 00:00:00 - External MMR- Measles, Mumps, 2013-07-25 Completed Mildred ey Seybold Rubella 00:00:00 - External TDAP 2013-05-21 Completed University of 00:00:00 [facility] TDAP 2013-05-21 Completed University of 00:00:00 [facility] TDAP 2013-05-21 Completed University of 00:00:00 [facility] TDAP 2013-05-21 Completed University of 00:00:00 [place] [facility] TDAP 2013-05-21 Completed University of 00:00:00 [place] [facility] TDAP 2013-05-21 Completed University of 00:00:00 [place] [facility] TDAP 2013-05-21 Completed University of 00:00:00 [place] [facility] TDAP 2013-05-21 Completed University of 00:00:00 [place] [facility] TDAP 2013-05-21 Completed University of 00:00:00 [place] [facility] TDAP 2013-05-21 Completed University of 00:00:00 [place] [facility] TDAP 2013-05-21 Completed University of 00:00:00 [facility] Tdap- (Boostrix, 2013-05-21 Completed Andreea S eybold Adacel) 00:00:00 - External Tdap- (Boostrix, 2013-05-21 Completed Andreea S eybold Adacel) 00:00:00 - External Tdap- (Boostrix, 2013-05-21 Completed Andreea S eybold Adacel) 00:00:00 - External Tdap- (Boostrix, 2013-05-21 Completed Andreea S eybold Adacel) 00:00:00 - External Tdap- (Boostrix, 2013-05-21 Completed Andreea S eybold Adacel) 00:00:00 - External Influenza Virus 2013-03-19 Completed Universit y [...] Influenza Virus 2013-03-19 Completed Andreea Godfrey ybold Vaccine, Unspecified 00:00:00 - Ex ternal Formulation Influenza Virus 2013-03-19 Completed Andreea Se ybold Vaccine, Unspecified 00:00:00 - Ex ternal Formulation Influenza Virus 2013-03-19 Completed Andreea Godfrey ybold Vaccine, Unspecified 00:00:00 - Ex ternal Formulation Influenza Virus 2013-03-19 Completed Andreea Godfrey ybold Vaccine, Unspecified 00:00:00 - Ex ternal Formulation Influenza Virus 2013-03-19 Completed Andreea ybold Vaccine, Unspecified 00:00:00 - Ex ternal Formulation Rubella 2008-04-17 Completed University of 00:00:00 [...] [facility] Rubella 2008-04-17 Completed Andreea Seybold 00:00:00 - External Rubella 2008-04-17 Completed Andreea Seybold 00:00:00 - External Rubella 2008-04-17 Completed Andreea Seybold 00:00:00 - External Rubella 2008-04-17 Completed Andreea Seybold 00:00:00 - External Rubella 2008-04-17 Completed Andreea Seybold 00:00:00 - External Tdap- (Boostrix, 2004-07-11 Completed Andreea aceves Adacel) 00:00:00 - External TD, NOS 2004-07-11 Completed University of 00:00:00 [facility] TD, NOS 2004-07-11 Completed University of 00:00:00 [facility] Td 2004-07-11 Completed University of 00:00: [facility] Td 2004-07-11 Completed University of 00:00:00 [facility] Td 2004-07-11 Completed University of 00:00:00 [facility] Td 2004-07-11 Completed University of 00:00:00 [facility] Td 2004-07-11 Completed University of 00:00:00 [facility] Td 2004-07-11 Completed University of 00:00: [facility] Td 2004-07-11 Completed University of 00:00:00 [facility] TD, NOS 2004-07-11 Completed University of 00:00:00 [facility] TD, NOS 2004-07-11 Completed University of 00:00:00 [facility] Tdap- (Boostrix, 2004-07-11 Completed Andreea aceves Adacel) 00:00:00 - External Tdap- (Boostrix, 2004-07-11 Completed Andreea aceves Adacel) 00:00:00 - External Tdap- (Boostrix, 2004-07-11 Completed Andreea aceves Adacel) 00:00:00 - External Tdap- (Boostrix, 2004-07-11 Completed Andreea aceves Adacel) 00:00:00 - External Covid-19 Vaccine Unknown Completed Andreea aceves Moderna (Spikevax), - Ext ernal Mrna-lnp, Florentin Protein, Pf Influenza Virus Unknown Completed Andreea fermin Vaccine, Unspecified - Ex ternal Formulation MMR- Measles, Mumps, Unknown Completed Mildred Corona Rubella - External Pneumococcal Unknown Completed Andreea Salgado ld Vaccine, - External Polysaccharide Rubella Unknown Completed Andreea Corona - External Tdap- (Boostrix, Unknown Completed Andreea aceves Adacel) - External Tdap- (Boostrix, Unknown Completed Andreea aceves Adacel) - External Tdap- (Boostrix, Unknown Completed Andreea aceves Adacel) - External Influenza Virus Unknown Completed Andreea fermin Vaccine, High Dose, - Ext ernal Age 65 And Up Rubella Unknown Completed [facility] TD, NOS Unknown Completed [facility] Influenza Virus Unknown Completed Universit y of Vaccine [facility] TDAP Unknown Completed [facility] MMR Unknown Completed [facility] Pneumococcal Unknown Completed [place] [facility] ical PPSV23 (PNEUMOVAX) Branch TDAP Unknown Completed [facility] Influenza High Dose Unknown Completed [facility] Rubella Unknown Completed [facility] TD, NOS Unknown Completed [facility] Influenza Virus Unknown Completed Universit y Vaccine [facility] TDAP Unknown Completed [facility] MMR Unknown Completed [facility] Pneumococcal Unknown Completed [place] [facility] [place] Med ical PPSV23 (PNEUMOVAX) Branch TDAP Unknown Completed [facility] Rubella Unknown Completed [facility] TD, NOS Unknown Completed [facility] Influenza Virus Unknown Completed Universit y [facility] TDAP Unknown Completed [facility] MMR Unknown Completed [facility] Pneumococcal Unknown Completed [place] [facility] [place], [place] Med ical PPSV23 (PNEUMOVAX) Branch TDAP Unknown Completed [facility] Vital Signs Vital Name Observation Time Observation Value Comments Source Systolic blood 2023-04-29 19:22:00 100 mm[Hg] Andreea Seybold - pressure External Diastolic blood 2023-04-29 19:22:00 67 mm[Hg] Vikram gray Seybold - pressure External Heart rate 2023-04-29 18:47:00 96 /min Andreea casillasbold - External Body temperature 2023-04-29 18:47:00 36.89 Lorenza Mildred casillas Seibisold - External Body height 2023-04-29 18:47:00 162.6 cm Andreea Rhodes eybold - External Body weight 2023-04-29 18:47:00 93.895 kg Andreea Rhodes eybold - External BMI 2023-04-29 18:47:00 35.53 kg/m2 Andreea casillasbold - External Systolic blood 2023-03-29 20:55:00 99 mm[Hg] Andreea Godfreyybold - pressure External Diastolic blood 2023-03-29 20:55:00 51 mm[Hg] Vikram gray Seybold - pressure External Heart rate 2023-03-29 20:55:00 96 /min Andreea Rhodes eybold - External Body temperature 2023-03-29 20:55:00 36.56 Lorenza Mildred ey Seybold - External Respiratory rate 2023-03-29 20:55:00 15 /min Mildred ey Seybold - External Body height 2023-03-29 20:55:00 162.6 cm Andreea Rhodes eybold - External Body weight 2023-03-29 20:55:00 98.884 kg Andreea Rhodes eybold - External BMI 2023-03-29 20:55:00 37.42 kg/m2 Andreea Rhodes eybold - External Oxygen saturation in 2023-03-29 20:55:00 99 /min Andreea Seybold - Arterial blood by External Pulse oximetry Systolic blood 2023-02-17 21:28:00 118 mm[Hg] Andreea Seybold - pressure External Diastolic blood 2023-02-17 21:28:00 60 mm[Hg] Vikram y Seybold - pressure External Heart rate 2023-02-17 [...] saturation in 2023-02-17 21:28:00 98 /min Andreea Seybold - Arterial blood by External Pulse oximetry Systolic blood 2023-01-12 12:08:00 108 mm[Hg] Univer sity of pressure [facility] Branch Diastolic blood 2023-01-12 12:08:00 66 mm[Hg] Unive rsity of pressure [facility] Heart rate 2023-01-12 12:08:00 68 /min [facility] Body temperature 2023-01-12 12:08:00 36 Lorenza Univ ersity [facility] Respiratory rate 2023-01-12 12:08:00 14 /min [facility] acute hospital Oxygen saturation in 2023-01-12 12:08:00 96 /min [facility] Arterial blood by [facility] Pulse oximetry Branch Body weight 2023-01-12 08:58:00 105.96 kg [facility] BMI 2023-01-12 08:58:00 40.10 kg/m2 [facility] Body height 2023-01-10 16:47:00 162.6 cm [facility] Systolic blood 2022-12-21 19:08:00 115 mm[Hg] [...] 15:00:00 103 mm[Hg] Univer sity of pressure [facility] Diastolic blood 2022-11-03 15:00:00 72 mm[Hg] Unive rsity of [facility] Heart rate 2022-11-03 15:00:00 76 /min Universi ty [facility] Oxygen saturation in 2022-11-03 15:00:00 96 /min University Arterial blood by [place] [facility] Pulse oximetry Branch Respiratory rate 2022-11-03 14:58:00 14 /min [facility] Body temperature 2022-11-03 13:25:00 37.22 Lorenza [facility] Body weight 2022-11-03 13:25:00 99.791 kg Universi ty [facility] BMI 2022-11-03 13:25:00 37.76 kg/m2 [facility] Systolic blood 2022-10-01 20:47:00 110 mm[Hg] Andreea [...] External BMI 2022-10-01 20:47:00 39.82 kg/m2 Andreea S eybold - External Oxygen saturation in 2022-10-01 [...] External BMI 2022-09-10 16:20:00 41.37 kg/m2 Andreea Rhodes eybold - External Systolic blood 2022-09-07 20:49:00 103 mm[Hg] Andreea Godfreyybold - pressure External Diastolic blood 2022-09-07 20:49:00 68 mm[Hg] Vikram gray Seybold - pressure External Heart rate 2022-09-07 20:49:00 119 /min Andreea Rhodes eybold - External Body temperature 2022-09-07 20:49:00 37.17 Lorenza Mildred casillas Seybold - External Respiratory rate 2022-09-07 20:49:00 14 /min Mildred casillas Seybold - External Body height 2022-09-07 20:49:00 162.6 cm Andreea Rhodes eybold - External Body weight 2022-09-07 20:49:00 109.317 kg Andreea Rhodes eybold - External BMI 2022-09-07 20:49:00 41.37 kg/m2 Andreea Rhodes eybold - External Oxygen saturation in 2022-09-07 20:49:00 96 /min Andreea Corona - Arterial blood by External Pulse oximetry Systolic blood 2022-08-30 14:00:00 112 mm[Hg] Univer sity of pressure [facility] Diastolic blood 2022-08-30 14:00:00 75 mm[Hg] Unive rsity of pressure [facility] Oxygen saturation in 2022-08-30 14:00:00 97 /min University of Arterial blood by [facility] Pulse oximetry Branch Heart rate 2022-08-30 13:00:00 93 /min Universi ty of [place] [facility] Body temperature 2022-08-30 13:00:00 35.83 Lorenza Univ ersity of [place] [facility] Respiratory rate 2022-08-30 13:00:00 15 /min Univ ersity of [place] [facility] Body weight 2022-08-29 12:00:00 112.492 kg Universi ty [facility] [place] [facility] BMI 2022-08-29 12:00:00 42.57 kg/m2 [facility] [place] [facility] Body height 2022-08-27 00:21:00 162.6 cm Universi ty [facility] [place] [facility] Systolic blood 2022-06-22 04:59:00 110 mm[Hg] Univer sity of pressure [place] [facility] Diastolic blood 2022-06-22 04:59:00 70 mm[Hg] Unive rsity of pressure [place] [facility] Heart rate 2022-06-22 04:59:00 107 /min Universi ty [facility] [place] [facility] Respiratory rate 2022-06-22 04:59:00 22 /min Univ ersity of [place] [facility] Oxygen saturation in 2022-06-22 04:59:00 97 /min University of Arterial blood by [facility] Pulse oximetry Branch Body temperature 2022-06-21 23:26:00 37.28 Lorenza Univ ers[facility] [place] [facility] Body height 2022-06-21 23:26:00 162.6 cm [facility]i [facility] [place] [facility] Body weight 2022-06-21 23:26:00 98.431 kg [facility] [place] [facility] BMI 2022-06-21 23:26:00 37.25 kg/m2 [facility] [place] [facility] Systolic blood 2021-10-17 02:05:00 117 [...] 98 /min University of Arterial blood by [facility] Pulse oximetry Branch Body temperature 2021-10-16 22:30:00 37.33 Lorenza Univ ers[facility] [place] [facility] Body weight 2021-10-16 21:38:00 103.42 kg Universi [facility] [place] [facility] BMI 2021-10-16 21:38:00 37.94 kg/m2 [facility]i ty [facility] [place] [facility] Systolic blood 2021-09-22 17:00:00 108 mm[Hg] Univer sity of pressure [place] [facility] Diastolic blood 2021-09-22 17:00:00 77 mm[Hg] Unive rsity of pressure [place] [facility] Heart rate 2021-09-22 17:00:00 90 /min Universi ty of [place] [facility] Oxygen saturation in 2021-09-22 17:00:00 97 /min University of Arterial blood by [facility] Pulse oximetry Branch Respiratory rate 2021-09-22 15:00:00 [...] 95 /min University of Arterial blood by [facility] Pulse oximetry Branch Body height 2021-06-18 10:37:00 165.1 cm [facility] [place] [facility] Body weight 2021-06-18 10:37:00 107.502 kg [facility] [place] [facility] BMI 2021-06-18 10:37:00 39.44 kg/m2 [facility] [place] [facility] Systolic blood 2021-05-31 01:34:00 139 mm[Hg] Univer sity of pressure [facility] Diastolic blood 2021-05-31 01:34:00 90 mm[Hg] Unive rsity of pressure [facility] Heart rate 2021-05-31 01:34:00 112 /min Universi ty of [facility] Respiratory rate 2021-05-31 01:34:00 20 /min [facility] in 2021-05-31 01:34:00 98 /min [facility] Arterial blood by [facility] Pulse oximetry Branch Body weight 2021-05-30 21:47:00 107.502 kg [facility] BMI 2021-05-30 21:47:00 40.68 kg/m2 [facility] BP Systolic 2022-06-18 10:43:00 118 mm[Hg] [...] POCT GLUCOSE (AUTOMATED) 2023-01-12 12:34:00 Gudelia Garcia [facility] LIPASE 2023-01-12 10:11:00 Mary Morrison [facility] BASIC METABOLIC PANEL 2023-01-12 10:11:00 Mary Morrison [facility] (NA, K, CL, CO2, Medical Branch GLUCOSE, BUN, CREATININE, CA) CBC WITH DIFF 2023-01-12 10:11:00 Mary Morrison [facility] POCT GLUCOSE (AUTOMATED) 2023-01-12 02:34:00 Gudelia Garcia [facility] POCT GLUCOSE (AUTOMATED) 2023-01-11 21:20:00 Gudelia Garcia [facility] POCT GLUCOSE (AUTOMATED) 2023-01-11 16:26:00 Gudelia Garcia [facility] POCT GLUCOSE (AUTOMATED) 2023-01-11 12:42:00 Gudelia Garcia [facility] LIPID PANEL 2023-01-11 06:30:00 Gudelia Garcia [facility] ([id number])(TOTAL [facility] Branch CHOLESTEROL, TRIGLYCERIDES, HDL) LOW-DENSITY LIPOPROTEIN, 2023-01-11 06:30:00 Gudelia Garcia [facility] DIRECT [facility] POCT GLUCOSE (AUTOMATED) 2023-01-11 02:07:00 Gudelia Garcia [facility] ADC CLC OR LCC ONLY - 2023-01-10 20:13:00 Deya Juarez [facility] WET PREP [facility] HSV 1 AND 2 GLYCOPROTEIN 2023-01-10 20:13:00 Judy Juarez [facility] G IGG [facility] US PELVIS COMPLETE WITH 2023-01-10 20:11:36 Howie Juarez [facility] TRANSVAGINAL [facility] GLYCOSYLATED HEMOGLOBIN 2023-01-10 17:35:00 Gudelia Garcia [facility] (A1C) [facility] CT ABDOMEN PELVIS W 2023-01-10 15:07:29 Ngoc Tinajero [facility] CONTRAST [facility] POCT TEST 2023-01-10 13:37:00 Ngoc Tinajero [facility] TRIGLYCERIDES 2023-01-10 13:29:00 Ngoc Tinajero [facility] LIPASE 2023-01-10 13:29:00 Lior [facility] COMP. METABOLIC PANEL 2023-01-10 13:29:00 Ngoc Tinajero [facility] ([id number]) [facility] CBC WITH DIFF 2023-01-10 13:29:00 Ngoc Tinajero [facility] ASSIGNMENT OF BENEFITS 2023-01-10 12:54:19 Doctor Unassigned, No [facility] Name [facility] URINALYSIS 2023-01-10 12:31:00 Ngoc Tinajero [facility] CONSENT/REFUSAL FOR 2023-01-10 12:22:34 Doctor Unassigned, No [facility] DIAGNOSIS AND TREATMENT [facility] REAGENT STRIP/BLOOD 2022-12-21 00:00:00 Outside, Reported Andreea Corona - GLUCOSE External LIPASE 2022-11-03 13:37:00 LoniKatelyn pollock [place] [facility] HEPATIC FUNCTION PANEL 2022-11-03 13:37:00 [id number] (ALB,T.PRO,BILI [facility] T,BU/BC,ALT,AST,ALK PHOS) BASIC METABOLIC PANEL 2022-11-03 13:37:00 Katelyn Ivey [facility] (NA, K, CL, CO2, Medical [facility] GLUCOSE, BUN, CREATININE, CA) LIPID PANEL 2022-11-03 13:37:[address] [facility] ([id number])(TOTAL Medical Branch CHOLESTEROL, TRIGLYCERIDES, HDL) CBC WITH DIFF 2022-11-03 13:37:00 Loni [facility] URINALYSIS 2022-11-03 13:37:00 Loni [facility] CONSENT/REFUSAL FOR 2022-11-03 13:22:43 Doctor Unassigned, No Un [facility] DIAGNOSIS AND TREATMENT Name [facility] REAGENT STRIP/BLOOD 2022-09-10 00:00:00 Outside, Reported Andreea Corona - DEBBI External POCT GLUCOSE (AUTOMATED) 2022-08-30 14:52:00 [facility] 2022-08-30 13:01:00 [facility] PO[facility]SE (AUTOMATED) 2022-08-30 12:03:00 Meri Wray Uni versity [facility] POCT GLUCOSE (AUTOMATED) 2022-08-30 11:04:00 Meri Wray [facility] TRIGLYCERIDES 2022-08-30 10:18:00 Meri Wray [facility] BASIC METABOLIC PANEL 2022-08-30 10:18:00 Meri Wray [facility] (NA, K, CL, CO2, [facility] GLUCOSE, BUN, CREATININE, CA) POCT GLUCOSE (AUTOMATED) 2022-08-30 10:11:00 Meri Wray Uni versity [facility] POCT GLUCOSE (AUTOMATED) 2022-08-30 09:10:00 Meri Wray Uni versity [facility] POCT GLUCOSE (AUTOMATED) 2022-08-30 08:08:00 Meri Wray Uni versity [facility] POCT GLUCOSE (AUTOMATED) 2022-08-30 07:15:00 Paresh Wrayi Uni versity [facility] POCT GLUCOSE (AUTOMATED) 2022-08-30 06:28:00 Meri Wray [facility] POCT GLUCOSE (AUTOMATED) 2022-08-30 05:04:00 Oville, Meri Uni versity [facility] POCT GLUCOSE (AUTOMATED) 2022-08-30 04:11:00 Oville, Meri Uni vers[facility] POCT GLUCOSE (AUTOMATED) 2022-08-30 03:03:00 Oville, Meri [facility] vers[facility] POCT GLUCOSE (AUTOMATED) 2022-08-30 02:21:00 Oville, Meri Uni vers[facility] POCT GLUCOSE (AUTOMATED) 2022-08-30 01:02:00 Oville, Meri Uni vers[facility] POCT GLUCOSE (AUTOMATED) 2022-08-30 00:03:00 Oville, Meri Uni vers[facility] POCT GLUCOSE (AUTOMATED) 2022-08-29 23:00:00 Oville, Meri Uni vers[facility] POCT GLUCOSE (AUTOMATED) 2022-08-29 22:04:00 Oville, Meri Uni vers[facility] POCT GLUCOSE (AUTOMATED) 2022-08-29 21:11:00 Oville, Meri Uni versity of [facility] POTASSIUM SERUM 2022-08-29 20:33:00 Ovdean [facility] TRIGLYCERIDES 2022-08-29 20:33:00 Oville [facility] POCT GLUCOSE (AUTOMATED) 2022-08-29 20:07:00 Oville, Meri Uni vers[facility] POCT GLUCOSE (AUTOMATED) 2022-08-29 19:09:00 Oville, Meri [facility] vers[facility] POCT GLUCOSE (AUTOMATED) 2022-08-29 18:12:00 Oville, Meri Uni vers[facility] POCT GLUCOSE (AUTOMATED) 2022-08-29 17:08:00 Oville, Meri Uni vers[facility] POCT GLUCOSE (AUTOMATED) 2022-08-29 16:14:00 Oville, Meri Uni vers[facility] POCT GLUCOSE (AUTOMATED) 2022-08-29 15:05:00 Oville, Meri Uni vers[facility] POCT GLUCOSE (AUTOMATED) 2022-08-29 14:08:00 OvParesh morani Uni versity of [facility] POCT GLUCOSE (AUTOMATED) 2022-08-29 13:18:00 OvParesh morani Uni versity of [facility] POCT GLUCOSE (AUTOMATED) 2022-08-29 12:06:00 Paresh Wrayi Uni vers[facility] of [facility] POCT GLUCOSE (AUTOMATED) 2022-08-29 10:56:00 OvMeri moran Uni versity of [facility] TRIGLYCERIDES 2022-08-29 10:53:00 Kamala [facility] MAGNESIUM 2022-08-29 10:53:00 Pedro [facility] BASIC METABOLIC PANEL 2022-08-29 10:53:00 Meri Wray [facility] (NA, K, CL, CO2, [facility] GLUCOSE, BUN, CREATININE, CA) POCT GLUCOSE (AUTOMATED) 2022-08-29 09:59:00 OvMeri moran Uni versity of [facility] POCT GLUCOSE (AUTOMATED) 2022-08-29 09:07:00 OvParesh morani Uni vers[facility] of [facility] POCT GLUCOSE (AUTOMATED) 2022-08-29 07:55:00 Meri Wray [facility] vers[facility] of [facility] POCT GLUCOSE (AUTOMATED) 2022-08-29 07:06:00 Paresh Wrayi Uni vers[facility] of [facility] POCT GLUCOSE (AUTOMATED) 2022-08-29 06:02:00 OvParesh morani Uni vers[facility] of [facility] POCT GLUCOSE (AUTOMATED) 2022-08-29 05:09:00 OvilleTawandaMeri Uni versity of [facility] POCT GLUCOSE (AUTOMATED) 2022-08-29 04:09:00 OvTawanda moranlani Uni versity of [facility] POCT GLUCOSE (AUTOMATED) 2022-08-29 03:17:00 OvTawanda moranlani Uni versity of [facility] POCT GLUCOSE (AUTOMATED) 2022-08-29 02:11:00 OvTawanda moranlani Uni versity of [facility] POCT GLUCOSE (AUTOMATED) 2022-08-29 01:00:00 Meri Wray [facility] vers[facility] of [facility] POCT GLUCOSE (AUTOMATED) 2022-08-29 00:13:00 Ovdean, Meri Uni vers[facility] of [facility] POCT GLUCOSE (AUTOMATED) 2022-08-28 23:13:00 eMri Wray Uni vers[facility] of [facility] POCT GLUCOSE (AUTOMATED) 2022-08-28 22:15:00 OvMeri moran Uni vers[facility] of [facility] POCT GLUCOSE (AUTOMATED) 2022-08-28 21:04:00 Ovdean, Meri [facility] vers[facility] of [facility] POCT GLUCOSE (AUTOMATED) 2022-08-28 20:03:00 Ovdean, Meri Uni vers[facility] of [facility] POCT GLUCOSE (AUTOMATED) 2022-08-28 19:06:00 Meri Wray Uni vers[facility] of [facility] TRIGLYCERIDES 2022-08-28 18:22:00 Kamala [facility] BASIC METABOLIC PANEL 2022-08-28 18:22:00 Meri Wray [facility] (NA, K, CL, CO2, Medical Branch GLUCOSE, BUN, CREATININE, CA) POCT GLUCOSE (AUTOMATED) 2022-08-28 18:13:00 Meri Wray [facility] vers[facility] of [facility] POCT GLUCOSE (AUTOMATED) 2022-08-28 17:03:00 Meri Wray [facility] POCT GLUCOSE (AUTOMATED) 2022-08-28 16:02:00 Meri Wray [facility] vers[facility] POCT GLUCOSE (AUTOMATED) 2022-08-28 15:02:00 Paresh Wrayi Uni vers[facility] of [facility] POCT GLUCOSE (AUTOMATED) 2022-08-28 14:03:00 OvMeri moran Uni vers[facility] of [facility] POCT GLUCOSE (AUTOMATED) 2022-08-28 13:04:00 Paresh Wrayi Uni vers[facility] of [facility] POCT GLUCOSE (AUTOMATED) 2022-08-28 12:30:00 OvParesh morani Uni vers[facility] of [facility] POCT GLUCOSE (AUTOMATED) 2022-08-28 11:32:00 OvMeri moran Uni vers[facility] of [facility] POCT GLUCOSE (AUTOMATED) 2022-08-28 10:06:00 Paresh Wrayi Uni vers[facility] of [facility] TRIGLYCERIDES 2022-08-28 10:00:00 Meri Wray o [facility] BASIC METABOLIC PANEL 2022-08-28 10:00:00 Meri Wray [facility] (NA, K, CL, CO2, Medical Branch GLUCOSE, BUN, CREATININE, CA) POCT GLUCOSE (AUTOMATED) 2022-08-28 08:59:00 Paresh Wrayi Uni versity of [facility] POCT GLUCOSE (AUTOMATED) 2022-08-28 08:05:00 OvParesh morani Uni versity of [facility] POCT GLUCOSE (AUTOMATED) 2022-08-28 05:58:00 Paresh Wrayi Uni vers[facility] of [facility] POCT GLUCOSE (AUTOMATED) 2022-08-28 05:03:00 Paresh Wrayi Uni vers[facility] of [facility] POCT GLUCOSE (AUTOMATED) 2022-08-28 04:01:00 Tawanda Wraylani Uni vers[facility] of [facility] POCT GLUCOSE (AUTOMATED) 2022-08-28 03:04:00 Paresh Wrayi Uni vers[facility] of [facility] POCT GLUCOSE (AUTOMATED) 2022-08-28 02:02:00 Ovdean Meri Uni vers[facility] of [facility] POCT GLUCOSE (AUTOMATED) 2022-08-28 01:01:00 Paresh Wrayi Uni vers[facility] of [facility] POCT GLUCOSE (AUTOMATED) 2022-08-28 00:02:00 Paresh Wrayi [facility] vers[facility] POCT GLUCOSE (AUTOMATED) 2022-08-27 23:34:00 Ovdean Meri Uni vers[facility] of [facility] POCT GLUCOSE (AUTOMATED) 2022-08-27 22:07:00 Paresh Wrayi Uni vers[facility] of [facility] BASIC METABOLIC PANEL 2022-08-27 21:28:00 Meri Wray [facility] (NA, K, CL, CO2, Medical Branch GLUCOSE, BUN, CREATININE, CA) POCT GLUCOSE (AUTOMATED) 2022-08-27 21:01:00 Tawanda Wraylani Uni vers[facility] of [facility] POCT GLUCOSE (AUTOMATED) 2022-08-27 20:17:00 Oville, Meri Uni versity of [facility] POCT GLUCOSE (AUTOMATED) 2022-08-27 19:00:00 Ovdean, Meri Uni vers[facility] of [facility] POCT GLUCOSE (AUTOMATED) 2022-08-27 18:02:00 OvMeri moran Uni versity of [facility] TRIGLYCERIDES 2022-08-27 17:17:00 Kamala [facility] BASIC METABOLIC PANEL 2022-08-27 17:17:00 Kamala [facility] (NA, K, CL, CO2, Medical Branch GLUCOSE, BUN, CREATININE, CA) POCT GLUCOSE (AUTOMATED) 2022-08-27 16:59:00 OvMeri morna Uni versity of [facility] POCT GLUCOSE (AUTOMATED) 2022-08-27 16:12:00 OvMeri moran Uni vers[facility] of [facility] POCT GLUCOSE (AUTOMATED) 2022-08-27 15:13:00 OvMeri moran Uni vers[facility] of [facility] POCT GLUCOSE (AUTOMATED) 2022-08-27 14:19:00 Ovdean, Meri Uni vers[facility] of [facility] POCT GLUCOSE (AUTOMATED) 2022-08-27 13:23:00 Ovdean Meri Uni vers[facility] of [facility] POCT GLUCOSE (AUTOMATED) 2022-08-27 12:05:00 OvMeri moran Uni vers[facility] of [facility] POCT GLUCOSE (AUTOMATED) 2022-08-27 11:06:00 OvMeri moran Uni vers[facility] of [facility] POCT GLUCOSE (AUTOMATED) 2022-08-27 10:14:00 Oville, Meri Uni versity of [facility] POCT GLUCOSE (AUTOMATED) 2022-08-27 09:04:00 OvParesh morani Uni vers[facility] of [facility] TRIGLYCERIDES 2022-08-27 08:14:00 Ovdean [facility] BASIC METABOLIC PANEL 2022-08-27 08:14:00 Kamala [facility] (NA, K, CL, CO2, Medical Branch GLUCOSE, BUN, CREATININE, CA) POCT GLUCOSE (AUTOMATED) 2022-08-27 06:58:00 Meri Wray [facility] POCT GLUCOSE (AUTOMATED) 2022-08-27 06:11:00 Meri Wray [facility] POCT GLUCOSE (AUTOMATED) 2022-08-27 05:11:00 Meri Wray [facility] POCT GLUCOSE (AUTOMATED) 2022-08-27 03:13:00 Meri Wray [facility] LIPASE 2022-08-27 02:32:00 [facility] BASIC METABOLIC PANEL 2022-08-27 02:32:00 Kamala [facility] (NA, K, CL, CO2, Medical Branch GLUCOSE, BUN, CREATININE, CA) MRSA / MSSA SCREEN BY 2022-08-27 02:32:00 Kamala [facility] WOOD [facility] POCT GLUCOSE (AUTOMATED) 2022-08-27 02:00:00 Meri Wray [facility] POCT GLUCOSE (AUTOMATED) 2022-08-27 01:14:00 Meri Wray [facility] POCT GLUCOSE (AUTOMATED) 2022-08-27 00:14:00 Meri Wray [facility] POCT GLUCOSE (AUTOMATED) 2022-08-26 23:51:00 Meri Wray [facility] POCT GLUCOSE (AUTOMATED) 2022-08-26 23:06:00 Meri Wray [facility] KETONES URINE 2022-08-26 22:57:00 [facility]-26 22:57[facility]00 [facility] (AUTOMATED) 2022-08-26 22:08:00 Robert Lutz [facility] ABG+COOX+NA+K+GLU+CA2+ 2022-08-26 21:16:00 Robert Lutz [facility] MAGNESIUM 2022-08-26 21:11:00 Robert Lutz [facility] OSMOLALITY, SERUM OR 2022-08-26 21:11:00 Bolivar [facility] PLASMA [facility] COMP. METABOLIC PANEL 2022-08-26 21:11:00 Robert Lutz [facility] ([id number]) [facility] LIPID PANEL 2022-08-26 21:11:00 Bolivar [facility] ([id number])(TOTAL [facility] CHOLESTEROL, TRIGLYCERIDES, HDL) CBC WITH DIFF 2022-08-26 21:11:00 Robert Lutz [facility] LOW-DENSITY LIPOPROTEIN, 2022-08-26 21:11:00 Robert Lutz [facility] DIRECT [facility] HB ECG ROUTINE & RHYTHM 2022-08-26 20:34:00 Guido Rucker [facility] STRIP [facility] POCT GLUCOSE (AUTOMATED) 2022-08-26 20:33:00 Doctor Unassigned, No [facility] Name [facility] CONSENT/REFUSAL FOR 2022-08-26 20:18:28 Doctor Unassigned, No Un [facility] DIAGNOSIS AND TREATMENT Name [facility] POCT GLUCOSE (AUTOMATED) 2022-06-22 03:40:00 Katelyn Ivey [facility] BASIC METABOLIC PANEL 2022-06-22 02:40:00 Katelyn Ivey [facility] (NA, K, CL, CO2, [facility] GLUCOSE, BUN, CREATININE, CA) POCT GLUCOSE(AGE 2022-06-22 02:39:00 Katelyn Ivey [facility] >30DAYS) [facility] POCT GLUCOSE (AUTOMATED) 2022-06-22 02:38:00 Katelyn Ivey [facility] VBG+VCOOX+NA+K+GLU+CA2+ 2022-06-22 02:08:00 Katelyn [facility]vey [facility] POCT GLUCOSE (AUTOMATED) 2022-06-22 01:41:00 Katelyn Ivey [facility] XR CHEST 2 VW 2022-06-22 00:47:37 Katelyn Ivey [place] [facility] PHOSPHORUS 2022-06-21 23:49:00 Katelyn Ivey [facility] MAGNESIUM 2022-06-21 23:49:00 Katelyn Ivey [facility] TROPONIN I 2022-06-21 23:49:00 Katelyn Ivey [facility] BASIC METABOLIC PANEL 2022-06-21 23:49:00 Katelyn Ivey [facility] (NA, K, CL, CO2, Medical Branch GLUCOSE, BUN, CREATININE, CA) CBC WITH DIFF 2022-06-21 23:49:00 Katelyn Ivey [facility] GLYCOSYLATED HEMOGLOBIN 2022-06-21 23:49:00 Katelyn Ivey [facility] (A1C) [facility] URINALYSIS 2022-06-21 23:49:00 Katelyn Ivey [facility] RAPID STREP SCREEN FOR 2022-06-21 23:49:00 Katelyn Ivey [facility] GROUP A [facility] RAPID INFLUENZA A/B 2022-06-21 23:49:00 Katelyn Ivey [facility] N-TERMINAL PRO-BNP 2022-06-21 23:49:00 Katelyn Ivey [facility] COVID-19 (ID NOW RAPID 2022-06-21 23:49:00 Katelyn Ivey [facility] TESTING) [facility] CONSENT/REFUSAL FOR 2022-06-21 23:19:40 Doctor Unassigned, No Un [facility] DIAGNOSIS AND TREATMENT Name [facility] POCT GLUCOSE (AUTOMATED) 2021-10-17 01:49:00 [facility] 2021-10-17 00:41:00 Beatriz Eduardo [facility] >30DAYS) [facility] POCT GLUCOSE (AUTOMATED) 2021-10-17 00:40:00 [facility]LO[facility] CULT[facility] SCREEN 2021-10-16 23:26:00 Beatriz Eduardo [facility] BLOOD CULTURE SCREEN 2021-10-16 23:03:00 Beatriz Eduardo [facility] TROPONIN I 2021-10-16 23:03:00 Beatriz Eduardo [facility] COMP. METABOLIC PANEL 2021-10-16 23:03:00 Beatriz Eduardo [facility] ([id number]) [facility] CBC WITH DIFF 2021-10-16 23:03:00 Beatriz Eduardo [facility] URINALYSIS 2021-10-16 23:03:00 Beatriz Eduardo [facility] N-TERMINAL PRO-BNP 2021-10-16 23:03:00 Beatriz Eduardo [facility] LACTIC ACID WHOLE BLOOD 2021-10-16 23:01:00 Beatriz Eduardo [facility] CT ABDOMEN PELVIS WO 2021-10-16 22:40:13 Beatriz Eduardo [facility] POCT TEST 2021-10-16 22:34:00 Beatriz Eduardo [facility] CONSENT/REFUSAL FOR 2021-10-16 21:34:04 Doctor Unassigned, No [facility] Name [facility] CT ABDOMEN PELVIS WO 2021-09-22 15:59:44 Singer Jn [facility] POCT TEST 2021-09-22 15:18:00 Jn Miller [facility] COMP. METABOLIC PANEL 2021-09-22 15:16:00 Singer Jn [facility] ([id number]) [facility] CBC WITH DIFF 2021-09-22 15:16:00 Singer Jn [facility] URINALYSIS 2021-09-22 14:58:00 Singer [facility] CONSENT/REFUSAL FOR 2021-09-22 14:47:03 Doctor Unassigned, No [facility] Name [facility] POCT GLUCOSE (AUTOMATED) 2021-06-18 13:04:00 [facility]EL[facility] WO 2021-06-18 12:58:31 Fozia Jang [facility] POCT TEST 2021-06-18 11:06:00 Fozia Jang [facility] CREATINE KINASE 2021-06-18 10:50:00 Lionel Park [facility] COMP. METABOLIC PANEL 2021-06-18 10:50:00 Fozia Jang [facility] ([id number]) Medical Branch CBC WITH DIFF 2021-06-18 10:50:00 Fozia Jang [facility] URINALYSIS 2021-06-18 10:50:00 Fozia Jang [facility] RAPID INFLUENZA A/B 2021-06-18 10:50:00 Fozia Jang [facility] COVID-19 (ID NOW RAPID 2021-06-18 10:50:00 Fozia Jang [facility] TESTING) Medical Branch NOTICE OF PRIVACY 2021-06-18 10:24:00 Doctor Unassigned, No [facility] PRACTICES Name [facility] CONSENT/REFUSAL FOR 2021-06-18 10:21:45 Doctor Unassigned, No [facility]REATMENT Name [facility] CT ABDOMEN PELVIS W 2021-05-30 23:52:43 Mary Jay [facility] CONTRAST [facility] CT HEAD WO CONTRAST 2021-05-30 23:52:13 Mary Jay [facility] XR CHEST 1 VW 2021-05-30 22:38:06 Mary Jay [facility] XR HAND 3+ VW LEFT 2021-05-30 22:38:06 Mary Jay [facility] XR FOREARM 2 VW LEFT 2021-05-30 22:28:08 Mary Jay [facility] CONSENT/REFUSAL FOR 2021-05-30 21:39:04 Doctor Unassigned, No [facility]REATMENT Name [facility] [id number] Ecg Routine Ecg 2015-12-20 00:00:00 W/least 12 Lds W/i r 83.71 2010-08-05 00:00:00 DK [facility] 77.98 2010-08-05 00:00:00 OATJA [facility] Or [facility] Plan of Care Planned Activity Planned Date Details Comments Source Future Scheduled 2023-04-27 Screening for [facility] Test 09:36:47 malignant neoplasm of colon (procedure) [code = 586237803] Future Scheduled 2023-04-27 Screening for [facility] Test 09:36:47 malignant neoplasm of colon (procedure) [code = 471662820] Future Scheduled 2023-04-27 [facility] Test 09:36:47 malignant neoplasm of colon (procedure) [code = 976073438] Future Scheduled 2023-04-27 COVID-[address] [facility] Test 09:36:47 (#1) [code = COVID-19 VACCINE (#1)] Future Scheduled 2023-04-27 [facility]47 screening (procedure) [code = 052407317] Future Scheduled 2023-04-27 [facility] Test 09:36:47 malignant neoplasm of cervix (procedure) [code = 646669270] Future Scheduled 2023-04-27 BREAST CANCER [facility] Test 09:36:47 SCREENING [code = BREAST CANCER SCREENING] Future Scheduled 2023-04-27 [facility] Test 09:36:47 malignant neoplasm of colon (procedure) [code = 345323276] Future Scheduled 2023-04-27 [facility] Test 09:36:47 malignant neoplasm of colon (procedure) [code = 142904090] Future Scheduled 2023-04-27 [facility]ZA [facility]ACCINE [facility] 09:36:47 (#1) [code = INFLUENZA VACCINE (#1)] Future Scheduled 2023-04-27 RSV VACCINES > 60 [facility] 09:36:47 YR (1 - 1-dose 60+ series) [code = RSV VACCINES > 60 YR (1 - 1-dose 60+ series)] Future Scheduled 2023-03-11 Screening [facility] Test 14:25:41 malignant neoplasm of colon (procedure) [code = 371425787] Future Scheduled 2023-03-11 [facility] Test 14:25:41 malignant neoplasm of colon (procedure) [code = 620066314] Future Scheduled 2023-03-11 [facility] Test 14:25:41 malignant neoplasm of colon (procedure) [code = 888777819] Future Scheduled 2023-03-11 [facility] 14:25:41 (#1) [code = COVID-19 VACCINE (#1)] Future Scheduled 2023-03-11 [facility] 14:25:41 screening (procedure) [code = 880950391] Future Scheduled 2023-03-11 [facility] Test 14:25:41 malignant neoplasm of cervix (procedure) [code = 931342099] Future Scheduled 2023-03-11 BREAST CANCER [facility] Test 14:25:41 SCREENING [code = BREAST CANCER SCREENING] Future Scheduled 2023-03-11 [facility] Test 14:25:41 malignant neoplasm of colon (procedure) [code = 146553353] Future Scheduled 2023-03-11 [facility] Test 14:25:41 malignant neoplasm of colon (procedure) [code = 179905425] Future Scheduled 2023-03-11 INFLUENZA VACCINE [facility] Test 14:25:41 (#1) [code = INFLUENZA VACCINE (#1)] Future Scheduled 2023-02-09 Scre[facility] Test 10:57:52 malignant neoplasm of colon (procedure) [code = 790612697] Future Scheduled 2023-02-09 [facility] Test 10:57:52 malignant neoplasm of colon (procedure) [code = 096425714] Future Scheduled 2023-02-09 [facility] Test 10:57:52 malignant neoplasm of colon (procedure) [code = 629071610] Future Scheduled 2023-02-09 [facility] 10:57:52 (#1) [code = COVID-19 VACCINE (#1)] Future Scheduled 2023-02-09 [facility] 10:57:52 screening (procedure) [code = 704073456] Future Scheduled 2023-02-09 [facility] for [facility] Test 10:57:52 malignant neoplasm of cervix (procedure) [code = 400538052] Future Scheduled 2023-02-09 BREAST CANCER [facility] Test 10:57:52 SCREENING [code = BREAST CANCER SCREENING] Future Scheduled 2023-02-09 [facility] for [facility] Test 10:57:52 malignant neoplasm of colon (procedure) [code = 717865950] Future Scheduled 2023-02-09 Screening for [facility] Test 10:57:52 malignant neoplasm of colon (procedure) [code = 083730261] Future Scheduled 2023-02-09 [facility]:57:[facility] [code = INFLUENZA VACCINE] Future Scheduled 2023-02-09 Screening for [facility] Test 10:57:52 malignant neoplasm of colon (procedure) [code = 855765416] Future Scheduled 2023-02-09 Screening for [facility] Test 10:57:52 malignant neoplasm of colon (procedure) [code = 118935198] Future Scheduled 2023-02-09 [facility] for [facility] Test 10:57:52 malignant neoplasm of colon (procedure) [code = 123599758] Future Scheduled 2023-02-09 COVID-[address] [facility] Test 10:57:52 (#1) [code = COVID-19 VACCINE (#1)] Future Scheduled 2023-02-09 [facility] 10:57:52 screening (procedure) [code = 729206688] Future Scheduled 2023-02-09 [facility] for [facility] Test 10:57:52 malignant neoplasm of cervix (procedure) [code = 636359374] Future Scheduled 2023-02-09 BREAST CANCER [facility] Test 10:57:52 SCREENING [code = BREAST CANCER SCREENING] Future Scheduled 2023-02-09 [facility]ening for [facility] Test 10:57:52 malignant neoplasm of colon (procedure) [code = 705650595] Future Scheduled 2023-02-09 Screening for [facility] Test 10:57:52 malignant neoplasm of colon (procedure) [code = 412913911] Future Scheduled 2023-02-09 [facility] 10:57:52 [code = INFLUENZA VACCINE] Future Scheduled 2023-02-09 Scre[facility] Test 10:57:52 malignant neoplasm of colon (procedure) [code = 634099016] Future Scheduled 2023-02-09 [facility] Test 10:57:52 malignant neoplasm of colon (procedure) [code = 616497166] Future Scheduled 2023-02-09 [facility]ening for [facility] Test 10:57:52 malignant neoplasm of colon (procedure) [code = 909404899] Future Scheduled 2023-02-09 COVID-[address] [facility] [facility] Test 10:57:52 (#1) [code = COVID-19 VACCINE (#1)] Future Scheduled 2023-02-09 [facility] 10:57:52 screening (procedure) [code = 582414174] Future Scheduled 2023-02-09 [facility] Test 10:57:52 malignant neoplasm of cervix (procedure) [code = 564011946] Future Scheduled 2023-02-09 BREAST CANCER [facility] Test 10:57:52 SCREENING [code = BREAST CANCER SCREENING] Future Scheduled 2023-02-09 [facility] Test 10:57:52 malignant neoplasm of colon (procedure) [code = 316898247] Future Scheduled 2023-02-09 [facility] Test 10:57:52 malignant neoplasm of colon (procedure) [code = 278779581] Future Scheduled 2023-02-09 [facility] 10:57:52 [code = INFLUENZA VACCINE] Future Scheduled 2023-02-09 Screening [facility] Test 10:57:52 malignant neoplasm of colon (procedure) [code = 881852127] Future Scheduled 2023-02-09 [facility]ening [facility] Test 10:57:52 malignant neoplasm of colon (procedure) [code = 395602509] Future Scheduled 2023-02-09 [facility]ening [facility] Test 10:57:52 malignant neoplasm of colon (procedure) [code = 697285093] Future Scheduled 2023-02-09 [facility] 10:57:52 (#1) [code = COVID-19 VACCINE (#1)] Future Scheduled 2023-02-09 [facility] 10:57:52 screening (procedure) [code = 314217078] Future Scheduled 2023-02-09 [facility] Test 10:57:52 malignant neoplasm of cervix (procedure) [code = 422617479] Future Scheduled 2023-02-09 BREAST CANCER [facility] Test 10:57:52 SCREENING [code = BREAST CANCER SCREENING] Future Scheduled 2023-02-09 Screening [facility] Test 10:57:52 malignant neoplasm of colon (procedure) [code = 550471291] Future Scheduled 2023-02-09 Screening [facility] Test 10:57:52 malignant neoplasm of colon (procedure) [code = 353754891] Future Scheduled 2023-02-09 [facility] 10:57:52 [code = INFLUENZA VACCINE] Future Scheduled 2023-02-09 Scre[facility] Test 10:57:52 malignant neoplasm of colon (procedure) [code = 001284934] Future Scheduled 2023-02-09 [facility] Test 10:57:52 malignant neoplasm of colon (procedure) [code = 812773491] Future Scheduled 2023-02-09 [facility]ening [facility] Test 10:57:52 malignant neoplasm of colon (procedure) [code = 351990386] Future Scheduled 2023-02-09 COVID-[address] [facility] Test 10:57:52 (#1) [code = COVID-19 VACCINE (#1)] Future Scheduled 2023-02-09 [facility] 10:57:52 screening (procedure) [code = 037291270] Future Scheduled 2023-02-09 [facility] Test 10:57:52 malignant neoplasm of cervix (procedure) [code = 715688920] Future Scheduled 2023-02-09 BREAST CANCER [facility] Test 10:57:52 SCREENING [code = BREAST CANCER SCREENING] Future Scheduled 2023-02-09 [facility] Test 10:57:52 malignant neoplasm of colon (procedure) [code = 679203156] Future Scheduled 2023-02-09 [facility] Test 10:57:52 malignant neoplasm of colon (procedure) [code = 276940062] Future Scheduled 2023-02-09 [facility] 10:57:52 [code = INFLUENZA VACCINE] Future Scheduled 2022-12-21 COVID-[address] [facility] Test 13:47:21 (#1) [code = COVID-19 VACCINE (#1)] Future Scheduled 2022-12-21 [facility] 13:47:21 screening (procedure) [code = 640392727] Future Scheduled 2022-12-21 [facility] Test 13:47:21 malignant neoplasm of cervix (procedure) [code = 841587507] Future Scheduled 2022-12-21 BREAST CANCER [facility] Test 13:47:21 SCREENING [code = BREAST CANCER SCREENING] Future Scheduled 2022-12-21 [facility] 13:47:21 [code = INFLUENZA VACCINE] Future Scheduled 2022-10-29 COVID-19 [facility]ACCINE [facility] Test 14:01:19 (#1) [code = COVID-19 VACCINE (#1)] Future Scheduled 2022-10-29 [facility] 14:01:19 screening (procedure) [code = 242861694] Future Scheduled 2022-10-29 [facility] Test 14:01:19 malignant neoplasm of cervix (procedure) [code = 417789488] Future Scheduled 2022-10-29 BREAST CANCER [facility] Test 14:01:19 SCREENING [code = BREAST CANCER SCREENING] Future Scheduled 2022-10-29 INFLUENZA VACCINE [facility] Test 14:01:19 [code = INFLUENZA VACCINE] Future [facility] 2022-10-29 [facility] (#1) [code = COVID-19 VACCINE (#1)] Future Scheduled 2022-10-29 [facility] 14:01:19 screening (procedure) [code = 518750369] Future Scheduled 2022-10-29 [facility] Test 14:01:19 malignant neoplasm of cervix (procedure) [code = 209878469] Future Scheduled 2022-10-29 BREAST CANCER [facility] Test 14:01:19 SCREENING [code = BREAST CANCER SCREENING] Future Scheduled 2022-10-29 INFLUENZA VACCINE [facility] Test 14:01:19 [code = INFLUENZA VACCINE] Future Scheduled 2022-06-30 COVID-19 VACCINE [facility] Test 13:24:39 (#1) [code = COVID-19 VACCINE (#1)] Future Scheduled 2022-06-30 [facility] 13:24:39 screening (procedure) [code = 651168710] Future Scheduled 2022-06-30 [facility] Test 13:24:39 malignant neoplasm of cervix (procedure) [code = 040120645] Future Scheduled 2022-06-30 BREAST CANCER [facility] Test 13:24:39 SCREENING [code = BREAST CANCER SCREENING] Future Scheduled 2022-06-30 [facility] 13:24:39 [code = INFLUENZA VACCINE] Future Scheduled 2022-06-30 [facility] 13:24:39 (#1) [code = COVID-19 VACCINE (#1)] Future Scheduled 2022-06-30 [facility] 13:24:39 screening (procedure) [code = 265177513] Future Scheduled 2022-06-30 [facility] Test 13:24:39 malignant neoplasm of cervix (procedure) [code = 959582184] Future Scheduled 2022-06-30 BREAST CANCER [facility] Test 13:24:39 SCREENING [code = BREAST CANCER SCREENING] Future Scheduled 2022-06-30 [facility] 13:24:39 [code = INFLUENZA VACCINE] Future Scheduled 2022-06-30 [facility] 13:24:39 (#1) [code = COVID-19 VACCINE (#1)] Future Scheduled 2022-06-30 [facility] 13:24:39 screening (procedure) [code = 640933196] Future Scheduled 2022-06-30 [facility] Test 13:24:39 malignant neoplasm of cervix (procedure) [code = 295610829] Future Scheduled 2022-06-30 [facility] 14:10:29 screening (procedure) [code = 570171794] Future Scheduled 2022-05-12 [facility] Test 14:10:29 malignant neoplasm of cervix (procedure) [code = 922577979] Future Scheduled 2022-05-12 BREAST CANCER [facility] Test 14:10:29 SCREENING [code = BREAST CANCER SCREENING] Future Scheduled 2022-05-12 INFLUENZA VACCINE [facility] Test 14:10:29 [code = INFLUENZA VACCINE] Future Scheduled 2022-05-12 [facility] 14:10:29 VACCINES (1 of 3 - 3-dose series) [code = HEPATITIS B VACCINES (1 of 3 - 3-dose series)] Future [facility] 2022[facility]05-12 [facility]:10:[facility] (#1) [code = COVID-19 VACCINE (#1)] Future Scheduled 2022-05-12 [facility] 14:10:29 screening (procedure) [code = 408259322] Future Scheduled 2022-05-12 Screening for [facility] Test 14:10:29 malignant neoplasm of cervix (procedure) [code = 943731067] Future Scheduled 2022-05-12 BREAST CANCER [facility] Test 14:10:29 SCREENING [code = BREAST CANCER SCREENING] Future Scheduled 2022-05-12 INFLUENZA VACCINE [facility] Test 14:10:29 [code = INFLUENZA VACCINE] Future Scheduled 2022-05-12 [facility] 14:10:29 VACCINES (1 of 3 - 3-dose series) [code = HEPATITIS B VACCINES (1 of 3 - 3-dose series)] Future Scheduled 2022-05-12 COVID-19 VACCINE [facility] Test 14:10:29 (#1) [code = COVID-19 VACCINE (#1)] Future Scheduled 2022-05-12 [facility] 14:10:29 screening (procedure) [code = 935718547] Future Scheduled 2022-05-12 Screening for [facility] Test 14:10:29 malignant neoplasm of cervix (procedure) [code = 009663574] Future Scheduled 2022-05-12 BREAST CANCER [facility] Test 14:10:29 SCREENING [code = BREAST CANCER SCREENING] Future Scheduled 2022-05-12 INFLUENZA VACCINE [facility] Test 14:10:29 [code = INFLUENZA VACCINE] Future Scheduled 2022-05-12 [facility] 14:10:29 VACCINES (1 of 3 - 3-dose series) [code = HEPATITIS B VACCINES (1 of 3 - 3-dose series)] Future [facility] 2022[facility]05-12 [facility] 14:10:[facility] (#1) [code = COVID-19 VACCINE (#1)] Future Scheduled 2022-05-12 [facility] 14:10:29 screening (procedure) [code = 180379882] Future Scheduled 2022-05-12 [facility] Test 14:10:29 malignant neoplasm of cervix (procedure) [code = 093975583] Future Scheduled 2022-05-12 BREAST CANCER [facility] Test 14:10:29 SCREENING [code = BREAST CANCER SCREENING] Future Scheduled 2022-05-12 INFLUENZA VACCINE [facility] Test 14:10:29 [code = INFLUENZA VACCINE] Future Scheduled 2022-04-12 [facility] 08:53:27 screening (procedure) [code = 222199566] Future Scheduled 2022-04-12 [facility] Test 08:53:27 malignant neoplasm of cervix (procedure) [code = 819698725] Future Scheduled 2022-04-12 BREAST CANCER [facility] Test 08:53:27 SCREENING [code = BREAST CANCER SCREENING] Future Scheduled 2022-04-12 IN[facility]UENZA VACCINE [facility] Test 08:53:27 [code = INFLUENZA VACCINE] Future Scheduled 2022-04-12 [facility] 08:53:27 VACCINES (1 of 3 - 3-dose series) [code = HEPATITIS B VACCINES (1 of 3 - 3-dose series)] Future Scheduled 2022-04-12 [facility] 08:53:[facility] (#1) [code = COVID-19 VACCINE (#1)] Future Scheduled 2022-03-16 [facility] 11:35:00 VACCINES (1 of 3 - 3-dose series) [code = HEPATITIS B VACCINES (1 of 3 - 3-dose series)] Future [facility]uled 2022-03-16 [facility] 11:[facility]:00 (#1) [code = COVID-19 VACCINE (#1)] Future Scheduled 2022-03-16 [facility] 11:35:00 screening (procedure) [code = 905796471] Future Scheduled 2022-03-16 Screening for [facility] Test 11:35:00 malignant neoplasm of cervix (procedure) [code = 160282818] Future Scheduled 2022-03-16 BREAST CANCER [facility] Test 11:35:00 SCREENING [code = BREAST CANCER SCREENING] Future Scheduled 2022-03-16 INFLUENZA VACCINE [facility] Test 11:35:00 [code = INFLUENZA VACCINE] Future Scheduled 2022-03-16 [facility] 11:35:00 VACCINES (1 of 3 - 3-dose series) [code = HEPATITIS B VACCINES (1 of 3 - 3-dose series)] Future Scheduled 2022-03-16 COVID-19 VACCINE [facility] Test 11:35:00 (#1) [code = COVID-19 VACCINE (#1)] Future Scheduled 2022-03-16 [facility] 11:35:00 screening (procedure) [code = 178419545] Future Scheduled 2022-03-16 Screening for [facility] Test 11:35:00 malignant neoplasm of cervix (procedure) [code = 560527210] Future Scheduled 2022-03-16 BREAST CANCER [facility] Test 11:35:00 SCREENING [code = BREAST CANCER SCREENING] Future Scheduled 2022-03-16 INFLUENZA VACCINE [facility] Test 11:35:00 [code = INFLUENZA VACCINE] Future Scheduled 2022-03-09 [facility] 12:08:14 VACCINES (1 of 3 - 3-dose series) [code = HEPATITIS B VACCINES (1 of 3 - 3-dose series)] Future Scheduled 2022-03-09 [facility] 12:08:14 (#1) [code = COVID-19 VACCINE (#1)] Future Scheduled 2022-03-09 [facility] 12:08:14 screening (procedure) [code = 708022514] Future Scheduled 2022-03-09 Screening for [facility] Test 12:08:14 malignant neoplasm of cervix (procedure) [code = 857666524] Future Scheduled 2022-03-09 BREAST CANCER [facility] Test 12:08:14 SCREENING [code = BREAST CANCER SCREENING] Future Scheduled 2022-03-09 INFLUENZA VACCINE [facility] Test 12:08:14 [code = INFLUENZA VACCINE] Future Scheduled 2022-03-09 [facility] 12:08:14 VACCINES (1 of 3 - 3-dose series) [code = HEPATITIS B VACCINES (1 of 3 - 3-dose series)] Future Scheduled 2022-03-09 COVID-19 VACCINE [facility] Test 12:08:14 (#1) [code = COVID-19 VACCINE (#1)] Future Scheduled 2022-03-09 [facility] 12:08:14 screening (procedure) [code = 742564435] Future Scheduled 2022-03-09 Screening for [facility] Test 12:08:14 malignant neoplasm of cervix (procedure) [code = 046806839] Future Scheduled 2022-03-09 BREAST CANCER [facility] Test 12:08:14 SCREENING [code = BREAST CANCER SCREENING] Future Scheduled 2022-03-09 INFLUENZA VACCINE [facility] Test 12:08:14 [code = INFLUENZA VACCINE] Future Scheduled 2022-03-09 HEPATITIS B [facility] Test 12:08:14 VACCINES (1 of 3 - 3-dose series) [code = HEPATITIS B VACCINES (1 of 3 - 3-dose series)] Future Scheduled 2022-03-09 COVID-19 VACCINE [facility] Test 12:08:14 (#1) [code = COVID-19 VACCINE (#1)] Future Scheduled 2022-03-09 [facility] 12:08:14 screening (procedure) [code = 898130430] Future Scheduled 2022-03-09 Screening for [facility] Test 12:08:14 malignant neoplasm of cervix (procedure) [code = 502030284] Future Scheduled 2022-03-09 BREAST CANCER [facility] Test 12:08:14 SCREENING [code = BREAST CANCER SCREENING] Future Scheduled 2022-03-09 INFLUENZA VACCINE [facility] Test 12:08:14 [code = INFLUENZA VACCINE] Goal Plan of Care Note [code = 04775-5] Goal Plan of Care Note [code = 61724-6] Goal Plan of Care Note [code = 48972-8] Goal Plan of Care Note [code = 46336-3] Goal Plan of Care Note [code = 77086-6] Goal Plan of Care Note [code = 37885-4] Goal Plan of Care Note [code = 77446-6] Goal Plan of Care Note [code = 84312-2] Goal Plan of Care Note [code = 58444-1] Goal Plan of Care Note [code = 20517-5] Goal Plan of Care Note [code = 75856-5] Goal Plan of Care Note [code = 54807-1] Goal Plan of Care Note [code = 49299-5] Goal Plan of Care Note [code = 20018-9] Goal Plan of Care Note [code = 54637-1] Goal Plan of Care Note [code = 75228-8] Goal Plan of Care Note [code = 93304-0] Goal Plan of Care Note [code = 05262-5] Goal Plan of Care Note [code = 83127-7] Goal Plan of Care Note [code = 60499-3] Goal Plan of Care Note [code = 54603-1] Goal Plan of Care Note [code = 14943-4] Goal Plan of Care Note [code = 71155-8] Goal Plan of Care Note [code = 13013-8] Goal Plan of Care Note [code = 25368-7] Goal Plan of Care Note [code = 15928-8] Goal Plan of Care Note [code = 34334-7] Goal Plan of Care Note [code = 74001-9] Goal Plan of Care Note [code = 98366-4] Goal Plan of Care Note [code = 32205-9] Goal Plan of Care Note [code = 82376-1] Goal Plan of Care Note [code = 49366-4] Goal Plan of Care Note [code = 82411-7] Goal Plan of Care Note [code = 49056-2] Goal Plan of Care Note [code = 07775-5] Goal Plan of Care Note [code = 82200-1] Goal Plan of Care Note [code = 97813-9] Goal Plan of Care Note [code = 29609-1] Goal Plan of Care Note [code = 23206-9] Goal Plan of Care Note [code = 96045-6] Goal Plan of Care Note [code = 05427-5] Goal Plan of Care Note [code = 57475-0] Goal Plan of Care Note [code = 88908-5] Goal Plan of Care Note [code = 14299-3] Goal Plan of Care Note [code = 04962-4] Goal Plan of Care Note [code = 98695-5] Goal Plan of Care Note [code = 92911-5] Goal Plan of Care Note [code = 86599-3] Goal Plan of Care Note [code = 28213-8] Goal Plan of Care Note [code = 29972-6] Goal Plan of Care Note [code = 21196-2] Goal Plan of Care Note [code = 94308-5] Goal Plan of Care Note [code = 92038-9] Goal Plan of Care Note [code = 17894-1] Goal Plan of Care Note [code = 72332-1] Goal Plan of Care Note [code = 30113-5] Goal Plan of Care Note [code = 75142-5] Goal Plan of Care Note [code = 02930-7] Goal Plan of Care Note [code = 42309-6] Goal Plan of Care Note [code = 18336-1] Goal Plan of Care Note [code = 50957-5] Goal Plan of Care Note [code = 60421-3] Goal Plan of Care Note [code = 26308-9] Goal Plan of Care Note [code = 55731-8] Goal Plan of Care Note [code = 91012-7] Goal Plan of Care Note [code = 21443-1] Goal Plan of Care Note [code = 83606-9] Goal Plan of Care Note [code = 85151-1] Goal Plan of Care Note [code = 05092-3] Goal Plan of Care Note [code = 97537-3] Goal Plan of Care Note [code = 60038-6] Goal Plan of Care Note [code = 81911-0] Goal Plan of Care Note [code = 32870-0] Goal Plan of Care Note [code = 36765-3] Goal Plan of Care Note [code = 87456-7] Goal Plan of Care Note [code = 40007-0] Goal Plan of Care Note [code = 87348-5] Goal Plan of Care Note [code = 23660-3] Goal Plan of Care Note [code = 38133-7] Goal Plan of Care Note [code = 21725-7] Goal Plan of Care Note [code = 11244-9] Goal Plan of Care Note [code = 92275-6] Goal Plan of Care Note [code = 53357-0] Goal Plan of Care Note [code = 57648-9] Goal Plan of Care Note [code = 69876-1] Goal Plan of Care Note [code = 43906-4] Goal Plan of Care Note [code = 13296-6] Goal Plan of Care Note [code = 24818-9] Goal Plan of Care Note [code = 59981-4] Goal Plan of Care Note [code = 17131-8] Goal Plan of Care Note [code = 11792-3] Goal Plan of Care Note [code = 14663-0] Goal Plan of Care Note [code = 71851-3] Goal Plan of Care Note [code = 21642-1] Goal Plan of Care Note [code = 98564-4] Goal Plan of Care Note [code = 08958-2] Goal Plan of Care Note [code = 15370-8] Goal Plan of Care Note [code = 96336-8] Goal Plan of Care Note [code = 06412-9] Goal Plan of Care Note [code = 26627-9] Goal Plan of Care Note [code = 93830-7] Goal Plan of Care Note [code = 47213-1] Goal Plan of Care Note [code = 46804-1] Goal Plan of Care Note [code = 82598-6] Goal Plan of Care Note [code = 99018-5] Goal Plan of Care Note [code = 76591-5] Goal Plan of Care Note [code = 34638-7] Goal Plan of Care Note [code = 95268-4] Goal Plan of Care Note [code = 46042-6] Goal Plan of Care Note [code = 93254-6] Goal Plan of Care Note [code = 77410-7] Goal Plan of Care Note [code = 77832-0] Goal Plan of Care Note [code = 90232-3] Goal Plan of Care Note [code = 76059-3] Goal Plan of Care Note [code = 93545-2] Goal Plan of Care Note [code = 61134-8] Goal Plan of Care Note [code = 95316-4] Goal Plan of Care Note [code = 85404-7] Goal Plan of Care Note [code = 64640-5] Goal Plan of Care Note [code = 72995-9] Goal Plan of Care Note [code = 30790-8] Goal Plan of Care Note [code = 24449-3] Goal Plan of Care Note [code = 15293-6] Goal Plan of Care Note [code = 41303-8] Goal Plan of Care Note [code = 50875-9] Goal Plan of Care Note [code = 88411-8] Goal Plan of Care Note [code = 52487-5] Goal Plan of Care Note [code = 53184-2] Goal Plan of Care Note [code = 94183-1] Goal Plan of Care Note [code = 57510-0] Goal Plan of Care Note [code = 23805-9] Goal Plan of Care Note [code = 18016-5] Goal Plan of Care Note [code = 32174-9] Goal Plan of Care Note [code = 67600-3] Goal Plan of Care Note [code = 58154-6] Goal Plan of Care Note [code = 46539-1] Goal Plan of Care Note [code = 72007-8] Goal Plan of Care Note [code = 49738-2] Goal Plan of Care Note [code = 95181-9] Goal Plan of Care Note [code = 83111-9] Goal Plan of Care Note [code = 35690-8] Goal Plan of Care Note [code = 64819-3] Goal Plan of Care Note [code = 90240-0] Goal Plan of Care Note [code = 04894-4] Goal Plan of Care Note [code = 84261-7] Goal Plan of Care Note [code = 88918-5] Goal Plan of Care Note [code = 54102-3] Goal Plan of Care Note [code = 93410-1] Goal Plan of Care Note [code = 01337-9] Goal Plan of Care Note [code = 28699-8] Goal Plan of Care Note [code = 47830-8] Goal Plan of Care Note [code = 56064-7] Goal Plan of Care Note [code = 65224-0] Goal Plan of Care Note [code = 69460-7] Goal Plan of Care Note [code = 84745-0] Goal Plan of Care Note [code = 52378-5] Goal Plan of Care Note [code = 72013-5] Goal Plan of Care Note [code = 53564-4] Goal Plan of Care Note [code = 36914-3] Goal Plan of Care Note [code = 94477-7] Goal Plan of Care Note [code = 46781-1] Goal Plan of Care Note [code = 94559-2] Goal Plan of Care Note [code = 91385-8] Goal Plan of Care Note [code = 94338-3] Goal Plan of Care Note [code = 63239-5] Goal Plan of Care Note [code = 49537-6] Goal Plan of Care Note [code = 48943-3] Goal Plan of Care Note [code = 30390-7] Goal Plan of Care Note [code = 32598-3] Goal Plan of Care Note [code = 46701-6] Goal Plan of Care Note [code = 77173-7] Goal Plan of Care Note [code = 71530-0] Goal Plan of Care Note [code = 59895-0] Goal Plan of Care Note [code = 46089-6] Goal Plan of Care Note [code = 08105-4] Goal Plan of Care Note [code = 74311-2] Goal Plan of Care Note [code = 10561-8] Goal Plan of Care Note [code = 13611-8] Goal Plan of Care Note [code = 89412-3] Goal Plan of Care Note [code = 07948-3] Goal Plan of Care Note [code = 62431-8] Goal Plan of Care Note [code = 98267-9] Goal Plan of Care Note [code = 60756-7] Goal Plan of Care Note [code = 25605-5] Goal Plan of Care Note [code = 65200-5] Goal Plan of Care Note [code = 22430-1] Goal Plan of Care Note [code = 22970-8] Goal Plan of Care Note [code = 88741-4] Goal Plan of Care Note [code = 53490-0] Goal Plan of Care Note [code = 56659-0] Goal Plan of Care Note [code = 08145-1] Goal Plan of Care Note [code = 80559-5] Goal Plan of Care Note [code = 32866-6] Goal Plan of Care Note [code = 83070-5] Goal Plan of Care Note [code = 64682-0] Goal Plan of Care Note [code = 82320-7] Goal Plan of Care Note [code = 01673-9] Goal Plan of Care Note [code = 12758-2] Goal Plan of Care Note [code = 61576-0] Goal Plan of Care Note [code = 19707-8] Goal Plan of Care Note [code = 24964-5] Goal Plan of Care Note [code = 79150-8] Goal Plan of Care Note [code = 52758-4] Goal Plan of Care Note [code = 07935-8] Goal Plan of Care Note [code = 88362-6] Goal Plan of Care Note [code = 69790-9] Goal Plan of Care Note [code = 86506-3] Goal Plan of Care Note [code = 69988-5] Goal Plan of Care Note [code = 41894-4] Goal Plan of Care Note [code = 20049-4] Goal Plan of Care Note [code = 06702-1] Goal Plan of Care Note [code = 42098-1] Goal Plan of Care Note [code = 22572-2] Goal Plan of Care Note [code = 51862-3] Goal Plan of Care Note [code = 95353-8] Goal Plan of Care Note [code = 33599-5] Goal Plan of Care Note [code = 76559-8] Goal Plan of Care Note [code = 57308-0] Goal Plan of Care Note [code = 86405-5] Goal Plan of Care Note [code = 13837-1] Goal Plan of Care Note [code = 69081-9] Goal Plan of Care Note [code = 20875-7] Goal Plan of Care Note [code = 87921-1] Goal Plan of Care Note [code = 91309-7] Goal Plan of Care Note [code = 75813-2] Goal Plan of Care Note [code = 38970-3] Goal Plan of Care Note [code = 30774-0] Goal Plan of Care Note [code = 85150-7] Goal Plan of Care Note [code = 10246-9] Goal Plan of Care Note [code = 70224-6] Goal Plan of Care Note [code = 72033-5] Goal Plan of Care Note [code = 95971-1] Goal Plan of Care Note [code = 85021-3] Goal Plan of Care Note [code = 87628-0] Goal Plan of Care Note [code = 66991-4] Goal Plan of Care Note [code = 31998-3] Goal Plan of Care Note [code = 25215-5] Goal Plan of Care Note [code = 66291-6] Goal Plan of Care Note [code = 21780-3] Goal Plan of Care Note [code = 19469-8] Goal Plan of Care Note [code = 06617-0] Goal Plan of Care Note [code = 05369-3] Goal Plan of Care Note [code = 84301-7] Goal Plan of Care Note [code = 44735-4] Goal Plan of Care Note [code = 82300-3] Goal Plan of Care Note [code = 06123-3] Goal Plan of Care Note [code = 76674-0] Goal Plan of Care Note [code = 90845-4] Goal Plan of Care Note [code = 95358-3] Goal Plan of Care Note [code = 44626-9] Goal Plan of Care Note [code = 14836-0] Goal Plan of Care Note [code = 14484-4] Goal Plan of Care Note [code = 58094-2] Goal Plan of Care Note [code = 60087-4] Goal Plan of Care Note [code = 85940-9] Goal Plan of Care Note [code = 10621-8] Goal Plan of Care Note [code = 08490-5] Goal Plan of Care Note [code = 81057-2] Goal Plan of Care Note [code = 81541-9] Goal Plan of Care Note [code = 67500-5] Goal Plan of Care Note [code = 29544-9] Goal Plan of Care Note [code = 76958-6] Goal Plan of Care Note [code = 17595-1] Goal Plan of Care Note [code = 84875-6] Goal Plan of Care Note [code = 03612-3] Goal Plan of Care Note [code = 61053-8] Goal Plan of Care Note [code = 52828-3] Goal Plan of Care Note [code = 25965-6] Goal Plan of Care Note [code = 80506-6] Goal Plan of Care Note [code = 99211-8] Goal Plan of Care Note [code = 38463-2] Goal Plan of Care Note [code = 70968-4] Goal Plan of Care Note [code = 48550-5] Goal Plan of Care Note [code = 27982-4] Goal Plan of Care Note [code = 95425-1] Goal Plan of Care Note [code = 97007-7] Goal Plan of Care Note [code = 78539-1] Goal Plan of Care Note [code = 94636-1] Goal Plan of Care Note [code = 13923-2] Goal Plan of Care Note [code = 19468-8] Goal Plan of Care Note [code = 52039-3] Goal Plan of Care Note [code = 41218-5] Goal Plan of Care Note [code = 58616-9] Goal Plan of Care Note [code = 01936-0] Goal Plan of Care Note [code = 13308-7] Goal Plan of Care Note [code = 95269-8] Goal Plan of Care Note [code = 36062-0] Goal Plan of Care Note [code = 74362-2] Goal Plan of Care Note [code = 47914-1] Goal Plan of Care Note [code = 30749-2] Goal Plan of Care Note [code = 83563-3] Goal Plan of Care Note [code = 08744-8] Goal Plan of Care Note [code = 02224-7] Goal Plan of Care Note [code = 15892-3] Goal Plan of Care Note [code = 24004-3] Goal Plan of Care Note [code = 83066-4] Goal Plan of Care Note [code = 32777-0] Goal Plan of Care Note [code = 48054-2] Goal Plan of Care Note [code = 73508-1] Goal Plan of Care Note [code = 83323-9] Goal Plan of Care Note [code = 75278-0] Goal Plan of Care Note [code = 72637-7] Goal Plan of Care Note [code = 93663-4] Goal Plan of Care Note [code = 51572-6] Goal Plan of Care Note [code = 42359-0] Goal Plan of Care Note [code = 26854-7] Goal Plan of Care Note [code = 12018-6] Goal Plan of Care Note [code = 63811-7] Goal Plan of Care Note [code = 17938-0] Goal Plan of Care Note [code = 85892-1] Goal Plan of Care Note [code = 50502-4] Goal Plan of Care Note [code = 77923-2] Goal Plan of Care Note [code = 65873-2] Goal Plan of Care Note [code = 54550-9] Goal Plan of Care Note [code = 70148-8] Goal Plan of Care Note [code = 48769-8] Goal Plan of Care Note [code = 89194-9] Goal Plan of Care Note [code = 52353-4] Goal Plan of Care Note [code = 66264-9] Goal Plan of Care Note [code = 94803-9] Goal Plan of Care Note [code = 16642-8] Goal Plan of Care Note [code = 58674-9] Goal Plan of Care Note [code = 89794-7] Goal Plan of Care Note [code = 99122-0] Goal Plan of Care Note [code = 55904-9] Goal Plan of Care Note [code = 77227-0] Goal Plan of Care Note [code = 27216-0] Goal Plan of Care Note [code = 08738-1] Goal Plan of Care Note [code = 29242-9] Goal Plan of Care Note [code = 36296-7] Goal Plan of Care Note [code = 39317-2] Goal Plan of Care Note [code = 17326-5] Goal Plan of Care Note [code = 81263-0] Goal Plan of Care Note [code = 09050-2] Goal Plan of Care Note [code = 73021-5] Goal Plan of Care Note [code = 27383-6] Goal Plan of Care Note [code = 54625-2] Goal Plan of Care Note [code = 61277-1] Goal Plan of Care Note [code = 10947-9] Goal Plan of Care Note [code = 07592-0] Goal Plan of Care Note [code = 39135-3] Goal Plan of Care Note [code = 00111-2] Goal Plan of Care Note [code = 62481-6] Goal Plan of Care Note [code = 43095-8] Goal Plan of Care Note [code = 73815-5] Goal Plan of Care Note [code = 48063-5] Goal Plan of Care Note [code = 46138-5] Goal Plan of Care Note [code = 12980-6] Goal Plan of Care Note [code = 88201-4] Goal Plan of Care Note [code = 23212-1] Goal Plan of Care Note [code = 21393-3] Goal Plan of Care Note [code = 00540-2] Goal Plan of Care Note [code = 92319-6] Goal Plan of Care Note [code = 55849-5] Goal Plan of Care Note [code = 00594-0] Goal Plan of Care Note [code = 14596-6] Goal Plan of Care Note [code = 68142-6] Goal Plan of Care Note [code = 73141-8] Goal Plan of Care Note [code = 24748-6] Goal Plan of Care Note [code = 85120-7] Goal Plan of Care Note [code = 53260-6] Goal Plan of Care Note [code = 51585-9] Goal Plan of Care Note [code = 72365-4] Goal Plan of Care Note [code = 92256-6] Goal Plan of Care Note [code = 40463-4] Goal Plan of Care Note [code = 31362-8] Goal Plan of Care Note [code = 90611-8] Goal Plan of Care Note [code = 12417-5] Goal Plan of Care Note [code = 43406-0] Goal Plan of Care Note [code = 77949-4] Goal Plan of Care Note [code = 75159-5] Goal Plan of Care Note [code = 56482-5] Goal Plan of Care Note [code = 11699-0] Goal Plan of Care Note [code = 84785-3] Goal Plan of Care Note [code = 62869-6] Goal Plan of Care Note [code = 85878-3] Goal Plan of Care Note [code = 64035-1] Goal Plan of Care Note [code = 83376-2] Goal Plan of Care Note [code = 93429-2] Goal Plan of Care Note [code = 87909-9] Goal Plan of Care Note [code = 13321-8] Goal Plan of Care Note [code = 45338-5] Goal Plan of Care Note [code = 05521-0] Goal Plan of Care Note [code = 48855-7] Goal Plan of Care Note [code = 89170-0] Goal Plan of Care Note [code = 04286-4] Goal Plan of Care Note [code = 81431-8] Goal Plan of Care Note [code = 75200-2] Goal Plan of Care Note [code = 29426-2] Goal Plan of Care Note [code = 31937-3] Goal Plan of Care Note [code = 20780-0] Goal Plan of Care Note [code = 48956-1] Goal Plan of Care Note [code = 12692-7] Goal Plan of Care Note [code = 50272-5] Goal Plan of Care Note [code = 51152-5] Goal Plan of Care Note [code = 70586-3] Goal Plan of Care Note [code = 34701-0] Goal Plan of Care Note [code = 12036-9] Goal Plan of Care Note [code = 23855-6] Goal Plan of Care Note [code = 99377-4] Goal Plan of Care Note [code = 88205-0] Goal Plan of Care Note [code = 92048-2] Goal Plan of Care Note [code = 06433-4] Goal Plan of Care Note [code = 84366-3] Goal Plan of Care Note [code = 71515-6] Goal Plan of Care Note [code = 56090-9] Goal Plan of Care Note [code = 42150-1] Goal Plan of Care Note [code = 72403-5] Goal Plan of Care Note [code = 46359-9] Goal Plan of Care Note [code = 53347-3] Goal Plan of Care Note [code = 38457-5] Goal Plan of Care Note [code = 89656-5] Goal Plan of Care Note [code = 13037-7] Goal Plan of Care Note [code = 80684-9] Goal Plan of Care Note [code = 08693-2] Goal Plan of Care Note [code = 00982-3] Goal Plan of Care Note [code = 89569-5] Goal Plan of Care Note [code = 10063-8] Goal Plan of Care Note [code = 72516-5] Goal Plan of Care Note [code = 50877-5] Goal Plan of Care Note [code = 23135-4] Goal Plan of Care Note [code = 84879-0] Goal Plan of Care Note [code = 24256-3] Goal Plan of Care Note [code = 27633-6] Goal Plan of Care Note [code = 45126-1] Goal Plan of Care Note [code = 05170-4] Goal Plan of Care Note [code = 00294-9] Goal Plan of Care Note [code = 35292-2] Goal Plan of Care Note [code = 89078-8] Goal Plan of Care Note [code = 75031-5] Goal Plan of Care Note [code = 99254-5] Goal Plan of Care Note [code = 55175-8] Goal Plan of Care Note [code = 99999-5] Goal Plan of Care Note [code = 87441-7] Goal Plan of Care Note [code = 19336-8] Goal Plan of Care Note [code = 64109-2] Goal Plan of Care Note [code = 35073-0] Goal Plan of Care Note [code = 94596-6] Goal Plan of Care Note [code = 72151-5] Goal Plan of Care Note [code = 59543-6] Goal Plan of Care Note [code = 04388-8] Goal Plan of Care Note [code = 87731-7] Goal Plan of Care Note [code = 10766-1] Goal Plan of Care Note [code = 75787-0] Goal Plan of Care Note [code = 74014-6] Goal Plan of Care Note [code = 85963-0] Goal Plan of Care Note [code = 27887-1] Goal Plan of Care Note [code = 33616-6] Goal Plan of Care Note [code = 35340-5] Goal Plan of Care Note [code = 19801-7] Goal Plan of Care Note [code = 53355-8] Goal Plan of Care Note [code = 13897-9] Goal Plan of Care Note [code = 01616-4] Goal Plan of Care Note [code = 22203-7] Goal Plan of Care Note [code = 04167-9] Goal Plan of Care Note [code = 31305-1] Goal Plan of Care Note [code = 74379-0] Goal Plan of Care Note [code = 28651-0] Goal Plan of Care Note [code = 28191-6] Goal Plan of Care Note [code = 23368-6] Goal Plan of Care Note [code = 43076-6] Goal Plan of Care Note [code = 64278-4] Goal Plan of Care Note [code = 73664-2] Goal Plan of Care Note [code = 92097-6] Goal Plan of Care Note [code = 84945-5] Goal Plan of Care Note [code = 78604-7] Goal Plan of Care Note [code = 94567-8] Goal Plan of Care Note [code = 89769-9] Goal Plan of Care Note [code = 43550-3] Goal Plan of Care Note [code = 45851-1] Goal Plan of Care Note [code = 76943-8] Goal Plan of Care Note [code = 25604-6] Goal Plan of Care Note [code = 65595-4] Goal Plan of Care Note [code = 14992-0] Goal Plan of Care Note [code = 28184-0] Goal Plan of Care Note [code = 88896-4] Goal Plan of Care Note [code = 63706-4] Goal Plan of Care Note [code = 91195-2] Goal Plan of Care Note [code = 06490-4] Goal Plan of Care Note [code = 47315-3] Goal Plan of Care Note [code = 68768-8] Goal Plan of Care Note [code = 26969-1] Goal Plan of Care Note [code = 72646-4] Goal Plan of Care Note [code = 60935-1] Goal Plan of Care Note [code = 95390-2] Goal Plan of Care Note [code = 18053-8] Goal Plan of Care Note [code = 84983-3] Goal Plan of Care Note [code = 65206-4] Goal Plan of Care Note [code = 24498-6] Goal Plan of Care Note [code = 74837-8] Goal Plan of Care Note [code = 77811-0] Goal Plan of Care Note [code = 24741-8] Goal Plan of Care Note [code = 62736-8] Goal Plan of Care Note [code = 01387-6] Goal Plan of Care Note [code = 16607-3] Goal Plan of Care Note [code = 37030-3] Goal Plan of Care Note [code = 98724-9] Goal Plan of Care Note [code = 58555-0] Goal Plan of Care Note [code = 66760-1] Goal Plan of Care Note [code = 42432-7] Goal Plan of Care Note [code = 26298-0] Goal Plan of Care Note [code = 98028-6] Goal Plan of Care Note [code = 42611-4] Goal Plan of Care Note [code = 80172-5] Goal Plan of Care Note [code = 67926-1] Goal Plan of Care Note [code = 40852-0] Goal Plan of Care Note [code = 21138-3] Goal Plan of Care Note [code = 95556-8] Goal Plan of Care Note [code = 78413-8] Goal Plan of Care Note [code = 41477-3] Goal Plan of Care Note [code = 59174-5] Goal Plan of Care Note [code = 58723-2] Goal Plan of Care Note [code = 25293-1] Goal Plan of Care Note [code = 73992-1] Goal Plan of Care Note [code = 21332-1] Goal Plan of Care Note [code = 38325-2] Goal Plan of Care Note [code = 50435-0] Goal Plan of Care Note [code = 60795-1] Goal Plan of Care Note [code = 85117-4] Goal Plan of Care Note [code = 44525-5] Goal Plan of Care Note [code = 85776-9] Goal Plan of Care Note [code = 50596-3] Goal Plan of Care Note [code = 18846-1] Goal Plan of Care Note [code = 40529-8] Goal Plan of Care Note [code = 77730-4] Goal Plan of Care Note [code = 67455-9] Goal Plan of Care Note [code = 09839-3] Goal Plan of Care Note [code = 43963-9] Goal Plan of Care Note [code = 18924-9] Goal Plan of Care Note [code = 85896-8] Goal Plan of Care Note [code = 04540-8] Goal Plan of Care Note [code = 29369-0] Goal Plan of Care Note [code = 93533-8] Goal Plan of Care Note [code = 49578-6] Goal Plan of Care Note [code = 55463-3] Goal Plan of Care Note [code = 64611-2] Goal Plan of Care Note [code = 68830-6] Goal Plan of Care Note [code = 11282-2] Goal Plan of Care Note [code = 38499-4] Goal Plan of Care Note [code = 76665-4] Goal Plan of Care Note [code = 08158-0] Goal Plan of Care Note [code = 87997-6] Goal Plan of Care Note [code = 68681-2] Goal Plan of Care Note [code = 11662-6] Goal Plan of Care Note [code = 64642-2] Goal Plan of Care Note [code = 81323-2] Goal Plan of Care Note [code = 45099-5] Goal Plan of Care Note [code = 46416-2] Goal Plan of Care Note [code = 89869-1] Goal Plan of Care Note [code = 02031-2] Goal Plan of Care Note [code = 16362-1] Goal Plan of Care Note [code = 53510-7] Goal Plan of Care Note [code = 65800-5] Goal Plan of Care Note [code = 57981-7] Goal Plan of Care Note [code = 83643-8] Goal Plan of Care Note [code = 40610-8] Goal Plan of Care Note [code = 12568-5] Goal Plan of Care Note [code = 09679-6] Goal Plan of Care Note [code = 57325-0] Goal Plan of Care Note [code = 56524-1] Goal Plan of Care Note [code = 92201-8] Goal Plan of Care Note [code = 52287-9] Goal Plan of Care Note [code = 46818-9] Goal Plan of Care Note [code = 78553-1] Goal Plan of Care Note [code = 69514-1] Goal Plan of Care Note [code = 50135-1] Goal Plan of Care Note [code = 65306-8] Goal Plan of Care Note [code = 33131-8] Goal Plan of Care Note [code = 45457-3] Goal Plan of Care Note [code = 55844-1] Goal Plan of Care Note [code = 18204-9] Goal Plan of Care Note [code = 38229-2] Goal Plan of Care Note [code = 01834-4] Goal Plan of Care Note [code = 45518-7] Goal Plan of Care Note [code = 38116-0] Goal Plan of Care Note [code = 84989-5] Goal Plan of Care Note [code = 54270-4] Goal Plan of Care Note [code = 11698-9] Goal Plan of Care Note [code = 38808-1] Goal Plan of Care Note [code = 44994-0] Goal Plan of Care Note [code = 33909-5] Goal Plan of Care Note [code = 48105-3] Goal Plan of Care Note [code = 34397-4] Goal Plan of Care Note [code = 14040-0] Goal Plan of Care Note [code = 31678-8] Goal Plan of Care Note [code = 13828-5] Goal Plan of Care Note [code = 52510-8] Goal Plan of Care Note [code = 15228-0] Goal Plan of Care Note [code = 08589-7] Goal Plan of Care Note [code = 33805-5] Goal Plan of Care Note [code = 93458-4] Goal Plan of Care Note [code = 59128-3] Goal Plan of Care Note [code = 92786-5] Goal Plan of Care Note [code = 68027-6] Goal Plan of Care Note [code = 41424-6] Goal Plan of Care Note [code = 64624-4] Goal Plan of Care Note [code = 30845-4] Goal Plan of Care Note [code = 46597-0] Goal Plan of Care Note [code = 28799-3] Goal Plan of Care Note [code = 45351-6] Goal Plan of Care Note [code = 09383-3] Goal Plan of Care Note [code = 16520-0] Goal Plan of Care Note [code = 33968-9] Goal Plan of Care Note [code = 11571-6] Goal Plan of Care Note [code = 24328-8] Goal Plan of Care Note [code = 76072-0] Goal Plan of Care Note [code = 86626-1] Goal Plan of Care Note [code = 95716-6] Goal Plan of Care Note [code = 46011-5] Goal Plan of Care Note [code = 89146-1] Goal Plan of Care Note [code = 97364-5] Goal Plan of Care Note [code = 89377-0] Goal Plan of Care Note [code = 92658-7] Goal Plan of Care Note [code = 44815-1] Goal Plan of Care Note [code = 11467-1] Goal Plan of Care Note [code = 10443-6] Goal Plan of Care Note [code = 01933-5] Goal Plan of Care Note [code = 16367-2] Goal Plan of Care Note [code = 21764-6] Goal Plan of Care Note [code = 79053-6] Goal Plan of Care Note [code = 80034-2] Goal Plan of Care Note [code = 22936-9] Goal Plan of Care Note [code = 10967-6] Goal Plan of Care Note [code = 12950-1] Goal Plan of Care Note [code = 67568-6] Goal Plan of Care Note [code = 00890-7] Goal Plan of Care Note [code = 66328-3] Goal Plan of Care Note [code = 01611-1] Goal Plan of Care Note [code = 90751-5] Goal Plan of Care Note [code = 83997-2] Goal Plan of Care Note [code = 38169-1] Goal Plan of Care Note [code = 04606-8] Goal Plan of Care Note [code = 42152-6] Goal Plan of Care Note [code = 04846-1] Goal Plan of Care Note [code = 19667-4] Goal Plan of Care Note [code = 46407-3] Goal Plan of Care Note [code = 85118-2] Goal Plan of Care Note [code = 57317-7] Goal Plan of Care Note [code = 46433-7] Goal Plan of Care Note [code = 47762-7] Goal Plan of Care Note [code = 61509-2] Goal Plan of Care Note [code = 00507-6] Goal Plan of Care Note [code = 08331-0] Goal Plan of Care Note [code = 42780-9] Goal Plan of Care Note [code = 79751-9] Goal Plan of Care Note [code = 50514-1] Goal Plan of Care Note [code = 34842-0] Goal Plan of Care Note [code = 68220-9] Goal Plan of Care Note [code = 47087-0] Goal Plan of Care Note [code = 66493-9] Goal Plan of Care Note [code = 59009-3] Goal Plan of Care Note [code = 80683-2] Goal Plan of Care Note [code = 56615-8] Goal Plan of Care Note [code = 10116-8] Goal Plan of Care Note [code = 43544-2] Goal Plan of Care Note [code = 34825-6] Goal Plan of Care Note [code = 57382-4] Goal Plan of Care Note [code = 16406-0] Goal Plan of Care Note [code = 11900-1] Goal Plan of Care Note [code = 09470-1] Goal Plan of Care Note [code = 46948-1] Goal Plan of Care Note [code = 15915-3] Goal Plan of Care Note [code = 02472-9] Goal Plan of Care Note [code = 34354-4] Goal Plan of Care Note [code = 92270-7] Goal Plan of Care Note [code = 94337-6] Goal Plan of Care Note [code = 92533-8] Goal Plan of Care Note [code = 91535-1] Goal Plan of Care Note [code = 98794-2] Goal Plan of Care Note [code = 53844-7] Goal Plan of Care Note [code = 89323-2] Goal Plan of Care Note [code = 65325-5] Goal Plan of Care Note [code = 46145-2] Goal Plan of Care Note [code = 74484-4] Goal Plan of Care Note [code = 21168-1] Goal Plan of Care Note [code = 76117-2] Goal Plan of Care Note [code = 27486-8] Goal Plan of Care Note [code = 73466-1] Goal Plan of Care Note [code = 63375-3] Goal Plan of Care Note [code = 95637-3] Goal Plan of Care Note [code = 55066-7] Goal Plan of Care Note [code = 17182-3] Goal Plan of Care Note [code = 38499-8] Goal Plan of Care Note [code = 30660-4] Goal Plan of Care Note [code = 86806-9] Goal Plan of Care Note [code = 16276-4] Goal Plan of Care Note [code = 98070-3] Goal Plan of Care Note [code = 55342-7] Goal Plan of Care Note [code = 52232-5] Goal Plan of Care Note [code = 21911-6] Goal Plan of Care Note [code = 47601-4] Goal Plan of Care Note [code = 53103-3] Goal Plan of Care Note [code = 78477-2] Goal Plan of Care Note [code = 25297-5] Goal Plan of Care Note [code = 28187-6] Goal Plan of Care Note [code = 58899-5] Goal Plan of Care Note [code = 62186-8] Goal Plan of Care Note [code = 75967-9] Goal Plan of Care Note [code = 98175-1] Goal Plan of Care Note [code = 99484-8] Goal Plan of Care Note [code = 47613-2] Goal Plan of Care Note [code = 69050-5] Goal Plan of Care Note [code = 19035-4] Goal Plan of Care Note [code = 07274-7] Goal Plan of Care Note [code = 97768-8] Goal Plan of Care Note [code = 90641-1] Goal Plan of Care Note [code = 05205-1] Goal Plan of Care Note [code = 25850-4] Goal Plan of Care Note [code = 18093-3] Goal Plan of Care Note [code = 70910-0] Goal Plan of Care Note [code = 79220-0] Goal Plan of Care Note [code = 92409-6] Goal Plan of Care Note [code = 88184-6] Goal Plan of Care Note [code = 99607-4] Goal Plan of Care Note [code = 32184-0] Goal Plan of Care Note [code = 06703-7] Goal Plan of Care Note [code = 67557-4] Goal Plan of Care Note [code = 19664-7] Goal Plan of Care Note [code = 77925-0] Goal Plan of Care Note [code = 23191-6] Goal Plan of Care Note [code = 61864-7] Goal Plan of Care Note [code = 45586-1] Goal Plan of Care Note [code = 78275-3] Goal Plan of Care Note [code = 33390-1] Goal Plan of Care Note [code = 69696-9] Goal Plan of Care Note [code = 72103-7] Goal Plan of Care Note [code = 91229-4] Goal Plan of Care Note [code = 29742-1] Goal Plan of Care Note [code = 58344-2] Goal Plan of Care Note [code = 44655-4] Goal Plan of Care Note [code = 01157-8] Goal Plan of Care Note [code = 59542-3] Goal Plan of Care Note [code = 03331-4] Goal Plan of Care Note [code = 95254-6] Goal Plan of Care Note [code = 76185-0] Goal Plan of Care Note [code = 02242-7] Goal Plan of Care Note [code = 38901-8] Goal Plan of Care Note [code = 85709-4] Goal Plan of Care Note [code = 56993-0] Goal Plan of Care Note [code = 95734-8] Goal Plan of Care Note [code = 42890-6] Goal Plan of Care Note [code = 22211-1] Goal Plan of Care Note [code = 80151-7] Goal Plan of Care Note [code = 18759-6] Goal Plan of Care Note [code = 35772-2] Goal Plan of Care Note [code = 61140-8] Goal Plan of Care Note [code = 23001-4] Goal Plan of Care Note [code = 72764-6] Goal Plan of Care Note [code = 37905-1] Goal Plan of Care Note [code = 85486-2] Goal Plan of Care Note [code = 03689-2] Goal Plan of Care Note [code = 62641-5] Goal Plan of Care Note [code = 90623-5] Goal Plan of Care Note [code = 58737-0] Goal Plan of Care Note [code = 41000-4] Goal Plan of Care Note [code = 81603-9] Goal Plan of Care Note [code = 80722-0] Goal Plan of Care Note [code = 76240-7] Goal Plan of Care Note [code = 76203-4] Goal Plan of Care Note [code = 59268-2] Goal Plan of Care Note [code = 45947-6] Goal Plan of Care Note [code = 11272-4] Goal Plan of Care Note [code = 66566-8] Goal Plan of Care Note [code = 66202-6] Goal Plan of Care Note [code = 54936-9] Goal Plan of Care Note [code = 12041-3] Goal Plan of Care Note [code = 81113-4] Goal Plan of Care Note [code = 34263-4] Goal Plan of Care Note [code = 05906-6] Encounters Start End Encounter Admission Attending Care Care Encounter Source Date/Time Date/Time Type Type Clinicians Facility Department ID 2021-05-10 Emergency [facility] [id number] [facility] 15:04:50 [facility] [facility] 2021-05-08 Emergency [facility] [id number] Univers 16:08:38 ity of [facility] 2020-08-08 Inpatient Bebeto Valderrama [facility] RADI [id number] [facility] 15:30:00 59 [facility] 2020-08-02 Inpatient [facility] CARISSA [id number] [facility] 13:01:00 80 [facility] 2020-02-13 Inpatient [facility] CARISSA [id number] [facility] 19:15:00 41 [facility] 2020-01-16 Inpatient ERICA Wilson [facility] SURG [id number] [facility] 16:00:00 Tomiko 97 [facility] 2023-07-06 2023-07-06 Outpatient ORLY THORPE [id number] Andreea 15:45:00 15:45:00 Seybol d 2023-06-10 2023-06-10 Outpatient ORLY THORPE [id number] Andreea 15:30:00 15:30:00 Seybol d 2023-05-25 2023-05-25 Outpatient ANDREEA PEOPLES [id number] Andreea 14:00:00 14:00:00 NETO Seybol d 2023-05-10 2023-05-10 Outpatient ANDREEA MCKEON [id number] Andreea 14:40:00 14:40:00 ANGALIE Seybol d 2023-05-09 2023-05-09 Outpatient ANDREEA MCKEON [id number] [place]reea 15:00:00 15:00:00 ANGALIE Seybol d 2023-04-29 2023-04-29 Outpatient ANDREEA PEOPLES [id number] [place]ree[place] 14:00:00 14:00:00 NETO Seybol d 2023-04-15 2023-04-15 Outpatient ANDREEA EID [id number] Andreea 00:00:00 00:00:00 NICOLÁS Seybol d 2023-04-11 2023-04-11 Outpatient ANDREEA PEOPLES [id number] Andreea 16:30:00 16:30:00 NETO Seybol d 2023-04-09 2023-04-09 Outpatient ANDREEA BRAGA [id number] [place] 00:00:00 00:00:00 Seybol d 2023-04-08 2023-04-08 Outpatient ANDREEA PEOPLES [id number] [place]ree[place] 00:00:00 00:00:00 NETO Seybol d 2023-04-07 2023-04-07 Outpatient LAB90 ANDREEA BRAGA [id number] [place] 08:05:00 08:05:00 Seybol d 2023-04-01 2023-04-01 Outpatient ANDREEA PEOPLES [id number] [place]reea 00:00:00 00:00:00 NETO Seybol d 2023-03-30 2023-03-30 Outpatient ANDREEA CUTLER [id number] [place]reea 13:15:00 13:15:00 AMNA Seybol d 2023-03-30 2023-03-30 Outpatient ANDREEA EID [id number] [place] 00:00:00 00:00:00 NICOLÁS Seybol d 2023-03-29 2023-03-29 Outpatient ANDREEA PEOPLES [id number] [place] 16:15:00 16:15:00 NETO Seybol d 2023-03-24 2023-03-24 Outpatient ANDREEA PEOPLES [id number] [place] 00:00:00 00:00:00 NETO Seybol d 2023-03-22 2023-03-22 Outpatient ANDREEA EID [id number] [place] 00:00:00 00:00:00 NICOLÁS Seybol d 2023-03-21 2023-03-21 Outpatient LAB90 ANDREEA BRAGA [id number] [place] 08:00:00 08:00:00 Seybol d 2023-03-18 2023-03-18 Outpatient MYANDREEAONTonya BRAGA [id number] [place]reea 00:00:00 00:00:00 MD CASANDRA Seybol d 2023-03-18 2023-03-18 Outpatient ANDREEA PEOPLES [id number] [place]reea 00:00:00 00:00:00 NETO Seybol d 2023-03-09 2023-03-09 Outpatient ANDREEA BLOCK [id number] Andreea 08:40:00 08:40:00 KAVYA Seybol d 2023-03-04 2023-03-04 Outpatient ANDREEA MINOR [id number] [place]reea 14:30:00 14:30:00 VALDEZ Seybol d 2023-03-02 2023-03-02 Outpatient RAGINIANDREEA [id number] Andreea 00:00:00 00:00:00 NICOLÁS Seybol d 2023-03-01 2023-03-01 Outpatient SFA SFA [id number] Huang 11:57:21 11:57:21 0822 F Quirino 2023-02-28 2023-02-28 Outpatient ANDREEA RAIN [id number] Andreea 15:45:00 15:45:00 ARLENE Seybol d 2023-02-18 2023-02-18 Outpatient ANDREEA MINOR [id number] [place]ree[place] 00:00:00 00:00:00 VALDEZ Seybol d 2023-02-18 2023-02-18 Outpatient ANDREEA MINOR [id number] Andreea 00:00:00 00:00:00 VALDEZ Seybol d 2023-02-17 2023-02-17 Outpatient LAB90 ANDREEA BRAGA [id number] [place]reea 17:15:00 17:15:00 Seybol d 2023-02-17 2023-02-17 Outpatient ANDREEA MINOR [id number] Andreea 16:30:00 16:30:00 VALDEZ Seybol d 2023-02-16 2023-02-16 Outpatient SFA SFA [id number] Huang 13:31:17 13:31:17 0809 F Quirino 2023-02-16 2023-02-16 Outpatient ANDREEA PEOPLES [id number] [place]ree[place] 00:00:00 00:00:00 NETO Seybol d 2023-02-16 2023-02-16 Outpatient ANDREEA PEOPLES [id number] [place]reea 00:00:00 00:00:00 NETO Seybol d 2023-02-10 2023-02-10 Outpatient ANDREEA PEOPLES [id number] Andreea 00:00:00 00:00:00 NETO Seybol d 2023-02-02 2023-02-02 Outpatient ORLY THORPE [id number] [place] 14:30:00 14:30:00 Seybol d 2023-02-02 2023-02-02 Outpatient ANDREEA PEOPLES [id number] [place] 00:00:00 00:00:00 NETO Seybol d 2023-02-01 2023-02-01 Outpatient LISAZOYA ANDREEA BRAGA [id number] [place]reea 15:00:00 15:00:00 Seybol d 2023-02-01 2023-02-01 Outpatient ANDREEA EID [id number] Andreea 14:30:00 14:30:00 NICOLÁS Seybol d 2023-01-10 2023-01-12 Outpatient X JOSE [facility] [id number] Univers 07:31:00 11:08:00 GUDELIA diaz [facility] 2023-01-10 2023-01-12 Emergency [facility], Ngoc [facility] 1.2.8 40.114 [id number] Univers 07:31:00 11:08:00 Gudelia Garcia 350.1.13.10 [facility] 4.2.7.2.686 [facility] [id number] [address] 2023-01-04 2023-01-04 Outpatient THORPE, ORLY BRAGA [id number] Andreea 15:45:00 15:45:00 Seybol d 2022-12-27 2022-12-27 Outpatient ANDREEA PEOPLES [id number] [place]ree[place] 00:00:00 00:00:00 NETO Seybol d 2022-12-22 2022-12-22 Outpatient ANDREEA PEOPLES [id number] [place] 00:00:00 00:00:00 NETO Seybol d 2022-12-21 2022-12-21 Outpatient ANDREEA EID [id number] [place]ree[place] 14:15:00 14:15:00 NICOLÁS Seybol d 2022-12-17 2022-12-17 Outpatient LAB90 ANDREEA BRAGA [id number] Andreea 15:45:00 15:45:00 Seybol d 2022-12-17 2022-12-17 Outpatient ANDREEA PEOPLES [id number] [place] 15:00:00 15:00:00 NETO Seybol d 2022-12-15 2022-12-15 Outpatient LAB90 ANDREEA BRAGA [id number] [place] 08:30:00 08:30:00 Seybol d 2022-12-07 2022-12-07 Outpatient MELONY BRAGA [id number] [place] 00:00:00 00:00:00 MD CASANDRA Seybol d 2022-11-30 2022-11-30 Outpatient ANDREEA MCCLELLAND [id number] Andreea 13:50:00 13:50:00 JUDI Seybol d 2022-11-29 2022-11-29 Outpatient ANDREEA MORRISON [id number] [place]ree[place] 00:00:00 00:00:00 IVELISSE Seybol d 2022-11-29 2022-11-29 Outpatient ANDREEA BRAGA [id number] [place] 00:00:00 00:00:00 Seybol d 2022-11-29 2022-11-29 Outpatient ANDREEA PEOPLES [id number] [place] 00:00:00 00:00:00 NETO Seybol d 2022-11-24 2022-11-24 Outpatient ANDREEA PEOPLES [id number] [place]a 15:00:00 15:00:00 NETO Seybol d 2022-11-03 2022-11-03 [facility] 1.2.468.048 [id number] Univers 08:26:00 11:02:00 Katelyn BARBER 350.1.13.10 i lexii [facility] 4.2.7.2.686 [facility] [phone] [place] [address] [address] 2022-11-03 2022-11-03 Emergency [facility] [id number] Univers 08:26:00 11:02:00 KATELYN diaz [facility] 2022-11-01 2022-11-01 Outpatient [facility] [id number] Huang 16:16:49 16:16:49 0424 F Quirino 2022-11-01 2022-11-01 Outpatient PREZAS, ANDREEA BRAGA [id number] [place] 16:00:00 16:00:00 NETO Seybol d 2022-11-01 2022-11-01 Outpatient PREZANakul, ANDREEA BRAGA [id number] [place] 00:00:00 00:00:00 NETO Seybol d 2022-10-27 2022-10-27 Outpatient NOAH, ANDREEA BRAGA [id number] [place] 14:00:00 14:00:00 FABIO Seybol d 2022-10-26 2022-10-26 Outpatient PREZAS, ANDREEA BRAGA [id number] [place] 00:00:00 00:00:00 NETO Seybol d 2022-10-26 2022-10-26 Outpatient PREZAS, ANDREEA BRAGA [id number] [place] 00:00:00 00:00:00 NETO Seybol d 2022-10-22 2022-10-22 Outpatient RAGINIANDREEA [id number] [place] 16:45:00 16:45:00 NICOLÁS Seybol d 2022-10-21 2022-10-21 Outpatient MAURILIO ORLYConnie BRAGA [id number] [place] 10:00:00 10:00:00 Seybol d 2022-10-01 2022-10-01 Outpatient PREZAS, ANDREEA BRAGA [id number] [place] 15:45:00 15:45:00 NETO Seybol d 2022-09-24 2022-09-24 Outpatient JARBRINK-SE ANDREEA BRAGA [id number] [place] 15:00:00 15:00:00 HGALYRIS Se ybold 2022-09-21 2022-09-21 Outpatient PREZAS, ANDREEA BRAGA [id number] [place] 15:00:00 15:00:00 NETO Seybol d 2022-09-20 2022-09-20 Outpatient PREZAANDREEA Rhodes [id number] [place] 00:00:00 00:00:00 NETO Seybol d 2022-09-10 2022-09-10 Outpatient RAGINIANDREEA [id number] [place] 10:30:00 10:30:00 NICOLÁS Seybol d 2022-09-09 2022-09-09 Outpatient RICHELLE ANDREEA BRAGA [id number] [place] 00:00:00 00:00:00 NETO Seybol d 2022-09-09 2022-09-09 Outpatient RICHELLE ANDREEA BRAGA [id number] [place] 00:00:00 00:00:00 NETO Seybol d 2022-09-08 2022-09-08 Outpatient LAB90 ANDREEA BRAGA [id number] [place] 08:00:00 08:00:00 Seybol d 2022-09-07 2022-09-07 Outpatient STEPHIEANANakul ANDREEA BRAGA [id number] [place] 15:00:00 15:00:00 NETO Seybol d 2022-09-02 2022-09-02 Patient Doctor ARLENE 1.2.840.114 [id number] Univers 00:00:00 00:00:00 Secure Msg Unassigned, BENITA 350.1.13.10 ity of [facility] 4.2.7.2.686 Blake as [phone] [facility] [address] 2022-09-01 2022-09-01 Transition JIE Hargrove 1.2.840.114 [id number] Univers 00:00:00 00:00:00 of Care Leslie RIVERA 350.1.13.10 i ty of [place] [id number] [facility] [address] 2022-08-26 2022-08-30 Inpatient X KAMALA [facility] [id number] Univers 14:36:00 10:41:00 MERI ity of [facility] 2022-08-26 2022-08-30 Hospital Robert Lutz [facility] 1.2.840. 114 [id number] Univers 14:36:00 10:41:00 Encounter Meri Wray 350.1.13.10 [place] [id number] [facility] [address] 2022-07-09 2022-07-09 Outpatient SFA SFA [id number] Huang 09:41:12 09:41:12 1230 F [facility] 2022-07-09 2022-07-09 Outpatient [id number]- [id number] 9d [id number] 00:00:00 00:00:00 Visit i12d-0ns6 40c-4fc9-a -e3ft-276 8bb-636dec prak9771s n8324c 2022-06-23 2022-06-23 Outpatient iu6o05yx- [id number] 4i39hv-9 00:00:00 00:00:00 Visit 5k5f-53y2 b1u-72n3-x -j4l1-t64 3r6-i385ye 1fb5b1762 8e5105 2022-06-21 2022-06-[address] [facility] ERT [id number] Univers 17:30:00 23:11:00 KATELYN diaz [facility] 2022-06-21 2022-06-21 [facility] 1.2.873.562 [id number] Univers 17:30:00 23:11:00 Katelyn BARBER 350.1.13.10 i [facility] 4.2.7.2.686 [facility] [id number] [address] 2022-06-18 2022-06-18 Outpatient SFA SFA [id number] Huang 10:29:22 10:29:22 1209 F [facility] 2022-06-18 2022-06-18 Outpatient 1nc8xop9- [id number] 3a l7cab6-s 00:00:00 00:00:00 Visit gh6y-1rl9 w9t-4ld1-c -y950-z25 058-d5688m 85agov923 bmn792 2022-06-17 2022-06-17 Outpatient SFA SFA [id number] Huang 08:29:59 08:29:59 1208 F Quirino 2022-06-16 2022-06-16 Outpatient SFA SFA [id number] Huang 15:41:26 15:41:26 1207 F [facility] 2022-06-16 2022-06-16 Outpatient 3l767v5c- [id number] 2f 171h6k-s 00:00:00 00:00:00 Visit dee3-4499 ee3-4499-9 -917d-e2d 17d-m3v645 04367737n 00408j 2022-06-04 2022-06-04 Outpatient SFA SFA [id number] Huang 11:59:44 11:59:44 1125 F Quirino 2022-06-02 2022-06-02 Outpatient [id number]- [id number] e26x7n-9 00:00:00 00:00:00 Visit 756a-4a2e 56a-4a2e-b -r756-i28 549-i8145w 13p5509k0 9815d6 2022-04-29 2022-04-29 Outpatient SFA SFA [id number] Huang 08:03:25 08:03:25 1020 F Quirino 2022-04-29 2022-04-29 Outpatient [id number]- [id number] 7fc819-1 00:00:00 00:00:00 Visit 9ad6-5i13 bd7-4b85-9 -940e-c2d 40e-c2dfc3 rj6867264 [id number] 5949-10-14 2022-04-23 Outpatient ix1t6204- [id number] bf 3j1130-a 00:00:00 00:00:00 Visit ff00-3jms q76-8huo-5 -924a-d01 24a-d01f5f h3i1hb74a 4eb17f 2022-04-09 2022-04-09 Outpatient SFA SFA [id number] Huang 08:02:18 08:02:18 0930 F Quirino 2022-04-09 2022-04-09 Outpatient [id number]- [id number] c2 w89662-4 00:00:00 00:00:00 Visit 9o40-52i5 e03-02z8-4 -8750-031 750-0319bb 5yvjp5341 kz5085 2022-03-29 2022-03-29 Outpatient [id number] 735612-e 00:00:00 00:00:00 Visit n004-70f2 701-46a9-a -z8j7-x54 7u0-g67433 6803z37i5 3d26f8 2022-03-16 2022-03-16 Telephone Ernst, 1.2.840.1 [id number] [id number] Methodi 00:00:00 00:00:[address] [place] 3.430.2.7 [facility] [place] .3.488048 l .8 2022-03-11 2022-03-11 Telephone Ernst, 1.2.840.1 [id number] [id number] Methodi 00:00:00 00:00:[address] Dewi 3.430.2.7 Hospit a Arik .3.252958 l .8 2022-03-09 2022-03-09 Outpatient u6x63158- [id number] d6 x38923-s 00:00:00 00:00:00 Visit m20o-899e 56a-450d-9 -2f1e-66u k8g-07g818 681b39557 c88416 2022-01-20 2022-01-20 Outpatient 6ve38atk- [id number] 0f v86tcz-7 00:00:00 00:00:00 Visit 8baf-464d baf-464d-a -u31q-539 91e-80389p 14fzhw68i aeb84a 2021-10-19 2021-10-19 Patient Doctor ARLENE 1.2.840.114 [id number] Univers 00:00:00 00:00:00 Secure Msg Unassigned, BENITA 350.1.13.10 ity of [place] [facility] 4.2.7.2.686 Blake as [phone] [address] 2021-10-16 2021-10-16 Emergency [facility] [id number] Univers 16:39:00 22:23:00 BEATRIZ diaz [facility] 2021-10-16 2021-10-16 [facility] 1.2.037.198 [id number] Univers 16:39:00 22:23:00 Beatriz BARBER 350.1.13.10 it[facility] 4.2.7.2.686 [facility] [id number] [address] 2021-09-22 2021-09-22 Emergency X [facility] ERT [id number] Univers 09:56:00 12:05:00 JN itisaac [facility] 2021-09-22 2021-09-22 Emergency [facility] 1.2.365.986 [id number] Univers 09:56:00 12:05:00 Jn BARBER 350.1.13.10 i ty [facility] 4.2.7.2.686 [facility] [id number] [address] 2021-08-20 2021-08-20 Cam [facility] 1.2.840.114 [id number] Univers 00:00:00 00:00:00 [facility] 350.1.13.10 it y of [place] 4.2.7.2.686 Blake as DANIELITO?BLEA [id number] [address] MED[facility] OFF[facility] 2021-07-31 2021-07-31 Outpatient ERICA Bebeto Quiroga [facility] [id number] [facility] 05:47:00 05:47:00 00 [facility] 2021-06-18 2021-06-18 Emergency [facility] ERT [id number] Univers 04:31:00 08:25:00 FOZIA yangy [facility] 2021-06-18 2021-06-18 [facility] 1.2.969.757 [id number] Univers 04:31:00 08:25:00 Fozia BARBER 350.1.13.10 ity [facility] 4.2.7.2.686 [facility] [id number] [address] 2021-06-10 2021-06-10 Outpatient [facility] [id number] [place] 00:00:00 00:00:[address] 2021-06-10 2021-06-10 Travel 1.2.840.1 1.2.433.920 [id number] Methodi 00:00:00 00:00:[address] 3.430.2.7 0.2.7.3.698 Ho spita .3.773934 084.8 l .8 2021-06-08 2021-06-08 Telephone Ernst, 1.2.840.1 [id number] [id number] Methodi 00:00:00 00:00:[address] Dewi 3.430.2.7 Hospit a Arik .3.723230 l .8 2021-05-30 2021-05-30 Emergency X [facility]RT [id number] Univers 15:49:00 19:42:00 MARY [facility] 2021-05-30 2021-05-30 Emergency [facility] 1.2.072.438 [id number] Univers 15:49:00 19:42:00 Mary BARBER 350.1.13.10 i ty of [place] 4.2.7.2.686 [facility] [id number] [facility] [address] 2021-03-17 2021-03-17 Cam [facility] 1.2.653.746 [id number] Univers 00:00:00 00:00:00 Doron Barber 350.1.13.10 i ty of [place] 4.2.7.2.686 [facility] [id number] Co dical nal 220 [facility] 2021-02-27 2021-02-27 Outpatient Anupama GRIJALVA [facility] [id number] Univers 15:00:00 15:00:00 DORON isaac [facility] 2020-12-23 2020-12-23 Outpatient Anupama AVALOS [facility] [id number] Univers 16:00:00 16:00:00 FABIO [facility] 2020-12-10 2020-12-10 Outpatient R LISA [facility] [id number] Univers 09:00:00 09:53:04 BRYSON [facility] 2020-12-10 2020-12-10 Patient Doctor [facility] 1.2.840.114 [id number] Univers 00:00:00 00:00:00 Secure Msg Unassigned, SUNIL 350.1.13.10 ity of [place] 4.2.7.2.686 Fab rhodes PROFHASMUKHIO [id number] Co dical [address] 2020-12-02 2020-12-04 Outpatient X [facility] ANTONIO [id number] Univers 19:53:00 17:23:00 FOZIA [facility] 2020-11-07 2020-11-07 [facility] [id number] Univers 13:30:00 13:30:00 DORON [facility] 2020-06-02 2020-06-02 Telephone [facility] 1.2.840.114 [id number] 00:00:00 00:00:00 Lily Barber 350.1.13.10 [place] 4.2.7.2.686 Professio [id number] [address] 2020-05-29 2020-05-29 [facility] [id number] Univers 15:15:00 15:15:00 LESLEE [facility] 2020-05-27 2020-05-27 Office [facility] 1.2.522.986 [id number] 10:59:24 11:54:17 Visit Lily Barber 350.1.13.10 [place] 4.2.7.2.686 Professio [id number] [address] 2020-05-27 2020-05-27 [facility] [id number] Univers 10:45:00 10:45:00 LILY [facility] 2020-05-27 2020-05-27 Orders Doctor ARLENE 1.2.840.114 [id number] 00:00:00 00:00:00 Only Unassigned, BENITA 350.1.13.10 [place] [facility] 4.2.7.2.686 [id number] 009 2020-01-10 2020-01-10 Outpatient PRANAY Wilson LABO [id number] [facility] 18:46:00 18:46:00 Tomiko 24 [facility] 2020-01-04 2020-01-04 Outpatient DINAH [facility] [id number] [facility] 13:00:00 13:00:00 Tomiko 18 [facility] 2019-12-12 2019-12-12 Outpatient Anupama CORINNE, [facility] [id number] Univers 16:30:00 16:30:00 STANISLAW isaac [facility] 2019-12-07 2019-12-07 Outpatient Anupama GRIJALVA, [facility] [id number] [facility] 09:00:00 09:00:00 DORON [facility] 2019-11-22 2019-11-22 Outpatient ANTOSH, [facility] [id number] [place] 00:00:00 00:00:00 SILVINA 303 [facility] 2019-11-06 2019-11-06 Outpatient ANTOSH, [facility] [id number] [place] 00:00:00 00:00:00 SILVINA 632 [place] 2019-11-01 2019-11-01 Outpatient ANTOSH, [facility] [id number] [place] 00:00:00 00:00:00 SILVINA 554 Metho di 2019-10-30 2019-10-30 Outpatient GALAN, [facility] [id number] [place] 00:00:00 00:00:00 ABHIJIT 714 Method i 2019-10-18 2019-10-18 Outpatient ANTOSH, [facility] [id number] [place] 00:00:00 00:00:00 SILVINA 629 Metho [place] 2019-10-02 2019-10-02 Outpatient ANTOSH, [facility] [id number] [place] 00:00:00 00:00:00 SILVINA 105 [facility] 2019-10-01 2019-10-01 Outpatient ANTOSH, [facility] [id number] [place] 00:00:00 00:00:00 SILVINA 439 Metho di 2019-09-19 2019-09-19 Outpatient ANTOSH, [facility] [id number] [place] 00:00:00 00:00:00 SILVINA [address] 2019-09-11 2019-09-11 Outpatient [facility] [id number] Univers 10:30:00 10:30:00 STANISLAW [facility] 2019-09-10 2019-09-10 Outpatient ANGELIA, [facility] [id number] [place] 00:00:00 00:00:00 ABHIJIT 420 Method i 2019-09-10 2019-09-10 Outpatient ERNST, [facility] [id number] [place] 00:00:00 00:00:00 SILVINA 373 [facility] di 2019-09-10 2019-09-10 Outpatient ERNST, [facility] [id number] [place] 00:00:00 00:00:00 SILVINA 354 Metho di 2019-08-23 2019-08-23 Outpatient R ADRIENNE, [facility] [id number] Univers 16:15:00 10:31:44 [facility] 2019-08-15 2019-08-15 Outpatient R ADRIENNE, [facility] [id number] Univers 09:15:00 09:44:35 [facility] 2019-07-07 2019-07-07 Emergency X YARIMA, [facility] ERT [id number] Univers 10:13:53 13:06:00 FOZIA [facility] 2010-08-05 2010-08-07 Inpatient OUTP John, Kit [facility] [id number] [facility] 16:20:00 14:00:00 00 [facility] 2010-08-05 2010-08-07 Inpatient OUTP John, Kit HCATO SURG [id number] [facility] 16:20:00 14:00:00 00 [facility] Results Test Description Test Time Test Comments Results Result Comments Source POCT GLUCOSE (AUTOMATED) 2023-01-12 12:35:42 Test Item Value Reference Range Interpretation Comme nts POCT GLU (test code = 3528084013) 179 mg/dL 70-110 H Lab Interpretation (test code = 86757-2) Abnormal [facility] GLUCOSE (AUTOMATED)2023-01-12 02:35:59 Test Item Value Reference Range Interpretation Comments POCT GLU (test code = 6865710665) 267 mg/dL 70-110 H Lab Interpretation (test code = Abnormal 07883-0) [facility] GLUCOSE (AUTOMATED)2023-01-11 21:21:17 Test Item Value Reference Range Interpretation Comments POCT GLU (test code = 7611188553) 276 mg/dL 70-110 H Lab Interpretation (test code = Abnormal 67496-3) [facility] GLUCOSE (AUTOMATED)2023-01-11 16:26:50 Test Item Value Reference Range Interpretation Comments POCT GLU (test code = 1003985888) 114 mg/dL 70-110 H Lab Interpretation (test code = Abnormal 69738-8) [facility] GLUCOSE (AUTOMATED)2023-01-11 12:44:00 Test Item Value Reference Range Interpretation Comments POCT GLU (test code = 5822375638) 142 mg/dL 70-110 H Lab Interpretation (test code = Abnormal 34090-9) [facility] GLUCOSE (AUTOMATED)2023-01-11 02:08:20 Test Item Value Reference Range Interpretation Comments POCT GLU (test code = 5837201192) 97 mg/dL 70-110 Lab Interpretation (test code = Normal 97208-6) [facility]19 Test Item Value Reference Range Interpretation Comments TRIG (test code = 8815608387) 427 mg/dL 30-170 H Lab Interpretation (test code = Abnormal 47713-3) [facility]95165[facility]-10 14:22:41 Test Item Value Reference Range Interpretation Comments NA (test code = 138 mmol/L 135-145 3158389269) K (test code = 4.6 mmol/L 3.5-5.0 7981978542) CL (test code = 102 mmol/L 98-108 8191839818) CO2 TOTAL (test code = 21 mmol/L 23-31 L 2749516847) AGAP (test code = 15 2-16 7279095751) BUN (test code = 24 mg/dL 7-23 H 1075817787) GLUCOSE (test code = 158 mg/dL 70-110 H 4731988734) CREATININE (test code = 0.82 mg/dL 0.50-1.04 4382700991) TOTAL BILI (test code = 0.4 mg/dL 0.1-1.4 9169039926) CALCIUM (test code = 9.4 mg/dL 8.6-10.6 3185075455) T PROTEIN (test code = 7.9 g/dL 6.3-8.2 0585870867) ALBUMIN (test code = 4.7 g/dL 3.5-5.0 8234462880) ALK PHOS (test code = 42 U/L 34-122 1536040502) ALTv (test code = 32 U/L 5-35 1742-6) AST(SGOT) (test code = 27 U/L 13-40 2062821949) eGFR (test code = 75.7 mL/min/1.73m2 2100269681) CALVIN (test code = CALVIN) Association of [...] tests). Lab Interpretation Abnormal (test code = 74043-9) [facility] 14:22:41 Test Item Value Reference Range Interpretation Comments LIPASE (test code = 1163011613) 682 U/L 0-220 H Lab Interpretation (test code = Abnormal 75068-7) [facility] WITH [id number] 14:15:28 Test Item Value Reference Range Interpretation [...] RDW-SD (test code = 45.0 fL 39.0-49.9 42023-3) RDW-CV (test code = 14.9 % 12.0-15.5 788-0) PLT (test code = 260 See_Comment [Automated 777-3) message] The sy stem which generated this result transmitted reference range : 166 - 358 10*3/ ?L. The reference r doretha was not used to interpret this result as normal/abnormal . MPV (test code = 9.3 fL 9.5-12.9 L 32309-0) NRBC/100 WBC (test 0.0 See_Comment [Automat ed code = 4930895382) message] The system which generated this result transmitted reference range : 0.0 - 10.0 /100 WBCs. The refer ence range was not u sed to interpret th is result as normal/abnormal . NRBC x10^3 (test code See_Comment [Auto mated = 8141712986) message] The s ystem which generated this result transmitted reference range : 10*3/?L. The reference range was not used to interpret this result as normal/abnormal . GRAN MAT (NEUT) % 51.9 % (test code = 770-8) IMM GRAN % (test code 0.60 % = 4371780367) LYMPH % (test code = 34.7 % 736-9) MONO % (test code = 9.2 % 5905-5) EOS % (test code = 2.5 % 713-8) BASO % (test code = 1.1 % 706-2) GRAN MAT x10^3(ANC) 3.78 10*3/uL 1.88-7.09 (test code = 5867573404) IMM GRAN x10^3 (test 0.04 10*3/uL 0.00-0.06 code = 0513595975) LYMPH x10^3 (test code 2.52 10*3/uL 1.32-3.29 = 731-0) MONO x10^3 (test code 0.67 10*3/uL 0.33-0.92 = 742-7) EOS x10^3 (test code = 0.18 10*3/uL 0.03-0.39 711-2) BASO x10^3 (test code 0.08 10*3/uL 0.01-0.07 H = 704-7) Lab Interpretation Abnormal (test code = 40751-8) [id number] 13:37:00 Test Item Value Reference Range Interpretation Comments POCT PREG (test code = 1605) Negative On board controls acceptable with C Yes Line (test code = 3574) Lab Interpretation (test code = Normal 99711-0) [facility] [id number] 00:00:00 Test Item Value Reference Range Interpretation Comments BLOOD SUGAR (test code = 101205) 276 mg/dL 65-99 A Lab Interpretation (test code = Abnormal 38497-1) Andreea Corona - ExternalLIPID PANEL (11800)(TOTAL CHOLESTEROL, TRIGLYCERIDES, HDL)2022-11-03 14:32:57 Test Item Value Reference Range Interpretation Comments CHOL (test code = 236 mg/dL 120-200 H 2175569501) HDL (test code = 32 mg/dL >=50 L 6961944068) HDLC RATIO (test code = 7.4 <=4.5 H 6094836588) TRIG (test code = 667 mg/dL 30-170 H 3297877196) LDL CHOL (test code = Unable to calculate 67921-1) LDL due to elev ated triglyceride le jossy greater than 40 0 mg/dL. VLDL (test code = 133 mg/dL 5-60 H 4959639101) Lab Interpretation Abnormal (test code = 83585-0) [facility] METABOLIC PANEL (NA, K, CL, CO2, GLUCOSE, BUN, CREATININE, CA)2022-11-03 14:18:35 Test Item Value Reference Range Interpretation Comments NA (test code = 139 mmol/L 135-145 2257674068) K (test code = 4.4 mmol/L 3.5-5.0 9744043761) CL (test code = 105 mmol/L 98-108 2876592063) CO2 TOTAL (test code = 23 mmol/L 23-31 8396091003) AGAP (test code = 11 2-16 7722037945) BUN (test code = 12 mg/dL 7-23 5350041103) GLUCOSE (test code = 279 mg/dL 70-110 H 6200668803) CREATININE (test code = 0.59 mg/dL 0.50-1.04 9885879642) CALCIUM (test code = 9.8 mg/dL 8.6-10.6 8320532881) eGFR (test code = 110.7 mL/min/1.73m2 1410867481) CALVIN (test code = CALVIN) Association of [...] tests). Lab Interpretation Abnormal (test code = 75578-6) [facility]16951[facility] (ALB,T.PRO,BILI T,BU/BC,ALT,AST,ALK PHOS)2022-11-03 14:18:35 Test Item Value Reference Range Interpretation Comments TOTAL BILI (test code = 7081715952) 0.8 mg/dL 0.1-1.1 BILI UNCON (test code = 8650616923) 0.6 mg/dL 0.1-1.1 BILI CONJ (test code = 5503119429) 0.0 mg/dL 0.0-0.3 T PROTEIN (test code = 7476337722) 8.5 g/dL 6.3-8.2 H ALBUMIN (test code = 0939923457) 4.9 g/dL 3.5-5.0 ALK PHOS (test code = 5432776478) 48 U/L 34-122 ALTv (test code = 1742-6) 60 U/L 5-35 H AST(SGOT) (test code = 2705332631) 56 U/L 13-40 H Lab Interpretation (test code = Abnormal 29044-4) [facility] 14:18:15 Test Item Value Reference Range Interpretation Comments LIPASE (test code = 5262770105) 240 U/L 0-220 H Lab Interpretation (test code = Abnormal 13771-9) [facility] WITH [id number] 14:01:29 Test Item Value Reference Range Interpretation [...] RDW-SD (test code = 39.7 fL 39.0-49.9 03361-8) RDW-CV (test code = 13.0 % 12.0-15.5 788-0) PLT (test code = 252 See_Comment [Automated 777-3) message] The sy stem which generated this result transmitted reference range : 166 - 358 10*3/ ?L. The reference r doretha was not used to interpret this result as normal/abnormal . MPV (test code = 9.4 fL 9.5-12.9 L 54298-7) NRBC/100 WBC (test 0.0 See_Comment [Automat ed code = 2177086606) message] The system which generated this result transmitted reference range : 0.0 - 10.0 /100 WBCs. The refer ence range was not u sed to interpret th is result as normal/abnormal . NRBC x10^3 (test code See_Comment [Auto mated = 8457842108) message] The s ystem which generated this result transmitted reference range : 10*3/?L. The reference range was not used to interpret this result as normal/abnormal . GRAN MAT (NEUT) % 54.5 % (test code = 770-8) IMM GRAN % (test code 0.70 % = 2820931929) LYMPH % (test code = 34.3 % 736-9) MONO % (test code = 7.4 % 5905-5) EOS % (test code = 2.1 % 713-8) BASO % (test code = 1.0 % 706-2) GRAN MAT x10^3(ANC) 3.66 10*3/uL 1.88-7.09 (test code = 3766513216) IMM GRAN x10^3 (test 0.05 10*3/uL 0.00-0.06 code = 5554122050) LYMPH x10^3 (test code 2.31 10*3/uL 1.32-3.29 = 731-0) MONO x10^3 (test code 0.50 10*3/uL 0.33-0.92 = 742-7) EOS x10^3 (test code = 0.14 10*3/uL 0.03-0.39 711-2) BASO x10^3 (test code 0.07 10*3/uL 0.01-0.07 = 704-7) Lab Interpretation Abnormal (test code = 33804-5) [facility] STRIP/BLOOD [id number] 00:00:00 Test Item Value Reference Range Interpretation Comments BLOOD SUGAR (test code = 942160) 260 mg/dL 65-99 A Lab Interpretation (test code = Abnormal 49561-6) [facility] [place]SE [facility]AUT[facility]ATED)2022-08-30 14:54:37 Test Item Value Reference Range Interpretation Comments POCT GLU (test code = 6441471186) 123 mg/dL 70-110 H Lab Interpretation (test code = Abnormal 43105-1) [facility] GLUCOSE (AUTOMATED)2022-08-30 13:07:24 Test Item Value Reference Range Interpretation Comments POCT GLU (test code = 2151924329) 130 mg/dL 70-110 H Lab Interpretation (test code = Abnormal 33854-7) [facility] GLUCOSE (AUTOMATED)2022-08-30 12:05:08 Test Item Value Reference Range Interpretation Comments POCT GLU (test code = 1585100165) 136 mg/dL 70-110 H Lab Interpretation (test code = Abnormal 58083-0) [facility]2022-[facility]-30 11:08:07 Test Item Value Reference Range Interpretation Comments POCT GLU (test code = 5574359777) 115 mg/dL 70-110 H Lab Interpretation (test code = Abnormal 24655-9) [facility] GLUCOSE (AUTOMATED)2022-08-30 10:21:27 Test Item Value Reference Range Interpretation Comments POCT GLU (test code = 8091117304) 111 mg/dL 70-110 H Lab Interpretation (test code = Abnormal 36511-6) [facility] GLUCOSE (AUTOMATED)2022-08-30 09:12:24 Test Item Value Reference Range Interpretation Comments POCT GLU (test code = 4709366921) 121 mg/dL 70-110 H Lab Interpretation (test code = Abnormal 68745-7) [facility] GLUCOSE (AUTOMATED)2022-08-30 08:11:01 Test Item Value Reference Range Interpretation Comments POCT GLU (test code = 2087179527) 137 mg/dL 70-110 H Lab Interpretation (test code = Abnormal 50363-9) [facility] 07:47:30 Test Item Value Reference Range Interpretation Comments POCT GLU (test code = 5705593147) 134 mg/dL 70-110 H Lab Interpretation (test code = Abnormal 25357-7) [facility] 06:32:02 Test Item Value Reference Range Interpretation Comments POCT GLU (test code = 4800566270) 128 mg/dL 70-110 H Lab Interpretation (test code = Abnormal 13302-2) [facility]-30 05:05:59 Test Item Value Reference Range Interpretation Comments POCT GLU (test code = 3734662066) 157 mg/dL 70-110 H Lab Interpretation (test code = Abnormal 99608-5) [facility] GLUCOSE (AUTOMATED)2022-08-30 04:14:51 Test Item Value Reference Range Interpretation Comments POCT GLU (test code = 7621312060) 181 mg/dL 70-110 H Lab Interpretation (test code = Abnormal 95397-3) [facility] 03:07:48 Test Item Value Reference Range Interpretation Comments POCT GLU (test code = 0360042744) 150 mg/dL 70-110 H Lab Interpretation (test code = Abnormal 66933-4) [facility] GLUCOSE (AUTOMATED)2022-08-30 02:26:22 Test Item Value Reference Range Interpretation Comments POCT GLU (test code = 5242171055) 118 mg/dL 70-110 H Lab Interpretation (test code = Abnormal 08211-4) [facility] GLUCOSE (AUTOMATED)2022-08-30 01:05:37 Test Item Value Reference Range Interpretation Comments POCT GLU (test code = 5778380549) 150 mg/dL 70-110 H Lab Interpretation (test code = Abnormal 89220-6) [facility] GLUCOSE (AUTOMATED)2022-08-30 00:05:56 Test Item Value Reference Range Interpretation Comments POCT GLU (test code = 6525660548) 206 mg/dL 70-110 H Lab Interpretation (test code = Abnormal 48369-8) [facility] GLUCOSE (AUTOMATED)2022-08-29 23:02:06 Test Item Value Reference Range Interpretation Comments POCT GLU (test code = 0920208696) 172 mg/dL 70-110 H Lab Interpretation (test code = Abnormal 53002-9) [facility] GLUCOSE (AUTOMATED)2022-08-29 22:07:12 Test Item Value Reference Range Interpretation Comments POCT GLU (test code = 9563769214) 110 mg/dL 70-110 Lab Interpretation (test code = Normal 91015-1) [facility] GLUCOSE (AUTOMATED)2022-08-29 21:14:06 Test Item Value Reference Range Interpretation Comments POCT GLU (test code = 8929040941) 118 mg/dL 70-110 H Lab Interpretation (test code = Abnormal 46753-5) [facility] GLUCOSE (AUTOMATED)2022-08-29 20:09:27 Test Item Value Reference Range Interpretation Comments POCT GLU (test code = 3937781357) 104 mg/dL 70-110 Lab Interpretation (test code = Normal 46260-3) [facility] GLUCOSE (AUTOMATED)2022-08-29 19:11:06 Test Item Value Reference Range Interpretation Comments POCT GLU (test code = 6698385873) 101 mg/dL 70-110 Lab Interpretation (test code = Normal 10446-4) [facility] GLUCOSE (AUTOMATED)2022-08-29 18:15:25 Test Item Value Reference Range Interpretation Comments POCT GLU (test code = 2854308916) 125 mg/dL 70-110 H Lab Interpretation (test code = Abnormal 02181-1) [facility] GLUCOSE (AUTOMATED)2022-08-29 17:11:12 Test Item Value Reference Range Interpretation Comments POCT GLU (test code = 9083161440) 116 mg/dL 70-110 H Lab Interpretation (test code = Abnormal 41890-6) [facility] GLUCOSE (AUTOMATED)2022-08-29 16:16:36 Test Item Value Reference Range Interpretation Comments POCT GLU (test code = 0190355982) 139 mg/dL 70-110 H Lab Interpretation (test code = Abnormal 56973-8) [facility] GLUCOSE (AUTOMATED)2022-08-29 15:08:34 Test Item Value Reference Range Interpretation Comments POCT GLU (test code = 9293617018) 159 mg/dL 70-110 H Lab Interpretation (test code = Abnormal 10331-1) [facility] GLUCOSE (AUTOMATED)2022-08-29 14:18:05 Test Item Value Reference Range Interpretation Comments POCT GLU (test code = 6351056433) 147 mg/dL 70-110 H Lab Interpretation (test code = Abnormal 70674-4) [facility] GLUCOSE (AUTOMATED)2022-08-29 13:22:04 Test Item Value Reference Range Interpretation Comments POCT GLU (test code = 5569697916) 151 mg/dL 70-110 H Lab Interpretation (test code = Abnormal 50049-5) [facility] GLUCOSE (AUTOMATED)2022-08-29 12:11:27 Test Item Value Reference Range Interpretation Comments POCT GLU (test code = 4712559675) 163 mg/dL 70-110 H Lab Interpretation (test code = Abnormal 37892-5) [facility] GLUCOSE (AUTOMATED)2022-08-29 10:58:04 Test Item Value Reference Range Interpretation Comments POCT GLU (test code = 4336477168) 162 mg/dL 70-110 H Lab Interpretation (test code = Abnormal 77961-7) [facility] GLUCOSE (AUTOMATED)2022-08-29 10:03:25 Test Item Value Reference Range Interpretation Comments POCT GLU (test code = 7291175783) 184 mg/dL 70-110 H Lab Interpretation (test code = Abnormal 85865-4) [facility] GLUCOSE (AUTOMATED)2022-08-29 09:10:58 Test Item Value Reference Range Interpretation Comments POCT GLU (test code = 8916864881) 176 mg/dL 70-110 H Lab Interpretation (test code = Abnormal 25352-8) [facility] GLUCOSE (AUTOMATED)2022-08-29 08:04:18 Test Item Value Reference Range Interpretation Comments POCT GLU (test code = 7903283955) 158 mg/dL 70-110 H Lab Interpretation (test code = Abnormal 32284-1) [facility] GLUCOSE (AUTOMATED)2022-08-29 07:09:28 Test Item Value Reference Range Interpretation Comments POCT GLU (test code = 2044209560) 137 mg/dL 70-110 H Lab Interpretation (test code = Abnormal 82206-5) [facility] GLUCOSE (AUTOMATED)2022-08-29 06:07:41 Test Item Value Reference Range Interpretation Comments POCT GLU (test code = 2341270146) 136 mg/dL 70-110 H Lab Interpretation (test code = Abnormal 15201-0) [facility] GLUCOSE (AUTOMATED)2022-08-29 05:12:21 Test Item Value Reference Range Interpretation Comments POCT GLU (test code = 9613941513) 151 mg/dL 70-110 H Lab Interpretation (test code = Abnormal 25364-0) [facility] GLUCOSE (AUTOMATED)2022-08-29 04:11:30 Test Item Value Reference Range Interpretation Comments POCT GLU (test code = 6613963949) 166 mg/dL 70-110 H Lab Interpretation (test code = Abnormal 30386-8) [facility] GLUCOSE (AUTOMATED)2022-08-29 03:21:25 Test Item Value Reference Range Interpretation Comments POCT GLU (test code = 0137707468) 185 mg/dL 70-110 H Lab Interpretation (test code = Abnormal 01814-1) [facility] GLUCOSE (AUTOMATED)2022-08-29 02:13:24 Test Item Value Reference Range Interpretation Comments POCT GLU (test code = 7263689108) 139 mg/dL 70-110 H Lab Interpretation (test code = Abnormal 78130-5) [facility] GLUCOSE (AUTOMATED)2022-08-29 01:03:43 Test Item Value Reference Range Interpretation Comments POCT GLU (test code = 9225830653) 144 mg/dL 70-110 H Lab Interpretation (test code = Abnormal 26899-3) [facility] GLUCOSE (AUTOMATED)2022-08-29 00:27:52 Test Item Value Reference Range Interpretation Comments POCT GLU (test code = 0046805884) 193 mg/dL 70-110 H Lab Interpretation (test code = Abnormal 19399-9) [facility] GLUCOSE (AUTOMATED)2022-08-28 23:18:19 Test Item Value Reference Range Interpretation Comments POCT GLU (test code = 9689386692) 162 mg/dL 70-110 H Lab Interpretation (test code = Abnormal 17063-1) [facility] GLUCOSE (AUTOMATED)2022-08-28 22:25:29 Test Item Value Reference Range Interpretation Comments POCT GLU (test code = 5339159135) 163 mg/dL 70-110 H Lab Interpretation (test code = Abnormal 05248-7) [facility] GLUCOSE (AUTOMATED)2022-08-28 21:06:41 Test Item Value Reference Range Interpretation Comments POCT GLU (test code = 3434979713) 179 mg/dL 70-110 H Lab Interpretation (test code = Abnormal 77881-5) [facility] GLUCOSE (AUTOMATED)2022-08-28 20:08:24 Test Item Value Reference Range Interpretation Comments POCT GLU (test code = 3665141052) 159 mg/dL 70-110 H Lab Interpretation (test code = Abnormal 37956-0) [facility] GLUCOSE (AUTOMATED)2022-08-28 19:08:09 Test Item Value Reference Range Interpretation Comments POCT GLU (test code = 6092544112) 129 mg/dL 70-110 H Lab Interpretation (test code = Abnormal 02785-9) [facility] GLUCOSE (AUTOMATED)2022-08-28 18:16:18 Test Item Value Reference Range Interpretation Comments POCT GLU (test code = 7946503627) 106 mg/dL 70-110 Lab Interpretation (test code = Normal 86765-6) [facility] GLUCOSE (AUTOMATED)2022-08-28 17:06:55 Test Item Value Reference Range Interpretation Comments POCT GLU (test code = 8291202773) 136 mg/dL 70-110 H Lab Interpretation (test code = Abnormal 84700-9) [facility] GLUCOSE (AUTOMATED)2022-08-28 16:05:13 Test Item Value Reference Range Interpretation Comments POCT GLU (test code = 2369395714) 141 mg/dL 70-110 H Lab Interpretation (test code = Abnormal 16719-8) [facility] GLUCOSE (AUTOMATED)2022-08-28 15:04:57 Test Item Value Reference Range Interpretation Comments POCT GLU (test code = 0073613558) 168 mg/dL 70-110 H Lab Interpretation (test code = Abnormal 69904-1) [facility] GLUCOSE (AUTOMATED)2022-08-28 14:10:31 Test Item Value Reference Range Interpretation Comments POCT GLU (test code = 4559548261) 163 mg/dL 70-110 H Lab Interpretation (test code = Abnormal 36789-3) [facility] GLUCOSE (AUTOMATED)2022-08-28 13:07:27 Test Item Value Reference Range Interpretation Comments POCT GLU (test code = 1240936372) 133 mg/dL 70-110 H Lab Interpretation (test code = Abnormal 22397-6) [facility] GLUCOSE (AUTOMATED)2022-08-28 12:32:10 Test Item Value Reference Range Interpretation Comments POCT GLU (test code = 0944099062) 150 mg/dL 70-110 H Lab Interpretation (test code = Abnormal 49721-9) [facility] 12:14:56 Test Item Value Reference Range Interpretation Comments TRIG (test code = 7342818865) 1527 mg/dL 30-170 H Lab Interpretation (test code = Abnormal 71275-3) [facility] METABOLIC PANEL (NA, K, CL, CO2, GLUCOSE, BUN, CREATININE, CA)2022-08-28 12:02:28 Test Item Value Reference Range Interpretation Comments NA (test code = 137 mmol/L 135-145 8315728822) K (test code = 4.0 mmol/L 3.5-5.0 3624965492) CL (test code = 112 mmol/L 98-108 H 2641840629) CO2 TOTAL (test code = 19 mmol/L 23-31 L 4397944164) AGAP (test code = 6 2-16 9596044686) BUN (test code = 9 mg/dL 7-23 4964940155) GLUCOSE (test code = 157 mg/dL 70-110 H 3608161268) CREATININE (test code = 0.53 mg/dL 0.50-1.04 3061003961) CALCIUM (test code = 7.2 mg/dL 8.6-10.6 L 8756121487) eGFR (test code = 125.3 mL/min/1.73m2 9745241197) CALVIN (test code = CALVIN) Association of [...] tests). Lab Interpretation Abnormal (test code = 76244-7) [facility] GLUCOSE (AUTOMATED)2022-08-28 11:34:27 Test Item Value Reference Range Interpretation Comments POCT GLU (test code = 5939087030) 139 mg/dL 70-110 H Lab Interpretation (test code = Abnormal 42968-9) [facility] GLUCOSE (AUTOMATED)2022-08-28 10:08:58 Test Item Value Reference Range Interpretation Comments POCT GLU (test code = 6131109601) 159 mg/dL 70-110 H Lab Interpretation (test code = Abnormal 68149-4) [facility] GLUCOSE (AUTOMATED)2022-08-28 09:03:44 Test Item Value Reference Range Interpretation Comments POCT GLU (test code = 8004930051) 138 mg/dL 70-110 H Lab Interpretation (test code = Abnormal 73835-2) [facility] GLUCOSE (AUTOMATED)2022-08-28 08:09:23 Test Item Value Reference Range Interpretation Comments POCT GLU (test code = 5991005560) 134 mg/dL 70-110 H Lab Interpretation (test code = Abnormal 85994-3) [facility] GLUCOSE (AUTOMATED)2022-08-28 06:02:02 Test Item Value Reference Range Interpretation Comments POCT GLU (test code = 9752726809) 159 mg/dL 70-110 H Lab Interpretation (test code = Abnormal 96621-7) [facility] GLUCOSE (AUTOMATED)2022-08-28 05:07:18 Test Item Value Reference Range Interpretation Comments POCT GLU (test code = 8128539949) 132 mg/dL 70-110 H Lab Interpretation (test code = Abnormal 30924-3) [facility] GLUCOSE (AUTOMATED)2022-08-28 04:03:46 Test Item Value Reference Range Interpretation Comments POCT GLU (test code = 6468525763) 132 mg/dL 70-110 H Lab Interpretation (test code = Abnormal 86044-4) [facility] GLUCOSE (AUTOMATED)2022-08-28 03:06:02 Test Item Value Reference Range Interpretation Comments POCT GLU (test code = 5550233626) 161 mg/dL 70-110 H Lab Interpretation (test code = Abnormal 69249-8) [facility] GLUCOSE (AUTOMATED)2022-08-28 02:11:59 Test Item Value Reference Range Interpretation Comments POCT GLU (test code = 9933537109) 152 mg/dL 70-110 H Lab Interpretation (test code = Abnormal 56666-6) [facility] GLUCOSE (AUTOMATED)2022-08-28 01:13:55 Test Item Value Reference Range Interpretation Comments POCT GLU (test code = 5978748177) 154 mg/dL 70-110 H Lab Interpretation (test code = Abnormal 98037-1) [facility] GLUCOSE (AUTOMATED)2022-08-28 00:04:53 Test Item Value Reference Range Interpretation Comments POCT GLU (test code = 9076880581) 171 mg/dL 70-110 H Lab Interpretation (test code = Abnormal 08381-1) [facility] GLUCOSE (AUTOMATED)2022-08-27 23:36:39 Test Item Value Reference Range Interpretation Comments POCT GLU (test code = 6382471880) 192 mg/dL 70-110 H Lab Interpretation (test code = Abnormal 34414-3) [facility] GLUCOSE (AUTOMATED)2022-08-27 22:12:56 Test Item Value Reference Range Interpretation Comments POCT GLU (test code = 7120405506) 209 mg/dL 70-110 H Lab Interpretation (test code = Abnormal 09190-0) [facility] GLUCOSE (AUTOMATED)2022-08-27 21:04:44 Test Item Value Reference Range Interpretation Comments POCT GLU (test code = 5877664862) 173 mg/dL 70-110 H Lab Interpretation (test code = Abnormal 24823-6) [facility] GLUCOSE (AUTOMATED)2022-08-27 20:46:25 Test Item Value Reference Range Interpretation Comments POCT GLU (test code = 9940760681) 104 mg/dL 70-110 Lab Interpretation (test code = Normal 78266-0) [facility] GLUCOSE (AUTOMATED)2022-08-27 19:02:38 Test Item Value Reference Range Interpretation Comments POCT GLU (test code = 1113638097) 156 mg/dL 70-110 H Lab Interpretation (test code = Abnormal 36352-2) [facility] GLUCOSE (AUTOMATED)2022-08-27 18:04:27 Test Item Value Reference Range Interpretation Comments POCT GLU (test code = 1555372931) 146 mg/dL 70-110 H Lab Interpretation (test code = Abnormal 41977-4) [facility] GLUCOSE (AUTOMATED)2022-08-27 17:01:16 Test Item Value Reference Range Interpretation Comments POCT GLU (test code = 4883271533) 152 mg/dL 70-110 H Lab Interpretation (test code = Abnormal 82620-9) [facility] GLUCOSE (AUTOMATED)2022-08-27 16:14:54 Test Item Value Reference Range Interpretation Comments POCT GLU (test code = 6749446714) 173 mg/dL 70-110 H Lab Interpretation (test code = Abnormal 39707-6) [facility] GLUCOSE (AUTOMATED)2022-08-27 15:15:33 Test Item Value Reference Range Interpretation Comments POCT GLU (test code = 7907313083) 128 mg/dL 70-110 H Lab Interpretation (test code = Abnormal 61069-0) [facility] GLUCOSE (AUTOMATED)2022-08-27 14:21:55 Test Item Value Reference Range Interpretation Comments POCT GLU (test code = 0981212901) 128 mg/dL 70-110 H Lab Interpretation (test code = Abnormal 30009-5) [facility] GLUCOSE (AUTOMATED)2022-08-27 13:24:52 Test Item Value Reference Range Interpretation Comments POCT GLU (test code = 3232194211) 140 mg/dL 70-110 H Lab Interpretation (test code = Abnormal 49946-5) [facility] GLUCOSE (AUTOMATED)2022-08-27 12:09:47 Test Item Value Reference Range Interpretation Comments POCT GLU (test code = 9060419744) 167 mg/dL 70-110 H Lab Interpretation (test code = Abnormal 67725-3) [facility] GLUCOSE (AUTOMATED)2022-08-27 11:09:03 Test Item Value Reference Range Interpretation Comments POCT GLU (test code = 5922962411) 148 mg/dL 70-110 H Lab Interpretation (test code = Abnormal 14272-8) [facility] GLUCOSE (AUTOMATED)2022-08-27 10:16:49 Test Item Value Reference Range Interpretation Comments POCT GLU (test code = 9778536213) 129 mg/dL 70-110 H Lab Interpretation (test code = Abnormal 65225-8) [facility] GLUCOSE (AUTOMATED)2022-08-27 09:21:11 Test Item Value Reference Range Interpretation Comments POCT GLU (test code = 6351046892) 145 mg/dL 70-110 H Lab Interpretation (test code = Abnormal 23322-2) [facility] GLUCOSE (AUTOMATED)2022-08-27 07:01:10 Test Item Value Reference Range Interpretation Comments POCT GLU (test code = 6443499855) 126 mg/dL 70-110 H Lab Interpretation (test code = Abnormal 87552-8) [facility] GLUCOSE (AUTOMATED)2022-08-27 06:14:53 Test Item Value Reference Range Interpretation Comments POCT GLU (test code = 0876049831) 154 mg/dL 70-110 H Lab Interpretation (test code = Abnormal 44994-2) [facility]:57 Test Item Value Reference Range Interpretation Comments LIPASE (test code = 9248073828) 197 U/L 0-220 Lab Interpretation (test code = Normal 97090-7) [facility] GLUCOSE (AUTOMATED)2022-08-27 05:13:21 Test Item Value Reference Range Interpretation Comments POCT GLU (test code = 4806488621) 163 mg/dL 70-110 H Lab Interpretation (test code = Abnormal 24779-4) [facility], [id number] 04:16:58 Test Item Value Reference Range Interpretation Comments dLDL Chol (test code = 50436-0) 63 mg/dL <=130 Lab Interpretation (test code = Normal 61510-0) [facility], SERUM OR [id number] 04:12:04 Test Item Value Reference Range Interpretation Comments OSMOLALITY (test code = 319 See_Comment H [Au tomated message] 4132-2) The system [employer] generated this result transmitted ref erence range: 278 - 30 5 mOsm/kg. The reference range was not used to int erpret this result as normal/abnormal . Lab Interpretation (test Abnormal code = 17696-7) [facility] GLUCOSE (AUTOMATED)2022-08-27 03:17:19 Test Item Value Reference Range Interpretation Comments POCT GLU (test code = 9909739538) 244 mg/dL 70-110 H Lab Interpretation (test code = Abnormal 93841-2) [facility] (NA, K, CL, CO2, GLUCOSE, BUN, CREATININE, CA)2022-08-27 02:55:11 Test Item Value Reference Range Interpretation Comments NA (test code = 134 mmol/L 135-145 L 5999933096) K (test code = 4.3 mmol/L 3.5-5.0 9263098748) CL (test code = 103 mmol/L 98-108 1790139464) CO2 TOTAL (test code = 19 mmol/L 23-31 L 2753280739) AGAP (test code = 12 2-16 9551411310) BUN (test code = 25 mg/dL 7-23 H 6215431083) GLUCOSE (test code = 277 mg/dL 70-110 H 5591348172) CREATININE (test code = 0.77 mg/dL 0.50-1.04 7095203881) CALCIUM (test code = 8.2 mg/dL 8.6-10.6 L 8902776457) eGFR (test code = 81.4 mL/min/1.73m2 9106818588) CALVIN (test code = CALVIN) Association of [...] tests). Lab Interpretation Abnormal (test code = 85381-1) [facility] GLUCOSE (AUTOMATED)2022-08-27 02:03:06 Test Item Value Reference Range Interpretation Comments POCT GLU (test code = 9944333226) 322 mg/dL 70-110 H Lab Interpretation (test code = Abnormal 72123-2) [facility] GLUCOSE (AUTOMATED)2022-08-27 01:25:59 Test Item Value Reference Range Interpretation Comments POCT GLU (test code = 2421130529) 324 mg/dL 70-110 H Lab Interpretation (test code = Abnormal 41740-3) [facility] GLUCOSE (AUTOMATED)2022-08-27 00:32:23 Test Item Value Reference Range Interpretation Comments POCT GLU (test code = 1886841790) 372 mg/dL 70-110 H Lab Interpretation (test code = Abnormal 75819-0) [facility] GLUCOSE (AUTOMATED)2022-08-27 00:00:02 Test Item Value Reference Range Interpretation Comments POCT GLU (test code = 7772118680) 382 mg/dL 70-110 H Lab Interpretation (test code = Abnormal 86269-3) [facility] GLUCOSE (AUTOMATED)2022-08-26 23:10:50 Test Item Value Reference Range Interpretation Comments POCT GLU (test code = 8307312959) 409 mg/dL 70-110 H Lab Interpretation (test code = Abnormal 39183-6) [facility] (85538)(TOTAL CHOLESTEROL, TRIGLYCERIDES, HDL)2022-08-26 22:34:41 Test Item Value Reference Range Interpretation Comments CHOL (test code = 381 mg/dL 120-200 H 0572846975) HDL (test code = 25 mg/dL >=50 L 3207953322) HDLC RATIO (test code = 15.2 <=4.5 H 8091253515) TRIG (test code = 30-170 H 5763974119) LDL CHOL (test code = Unable to calculate 36881-2) LDL due to elev ated triglyceride le jossy greater than 40 0 mg/dL. VLDL (test code = Unable to calculate 7041097974) VLDL due to [place] vated triglyceride le jossy greater than 71 0 mg/dL. Lab Interpretation Abnormal (test code = 63585-4) [facility]2022-08-26 22:11:52 Test Item Value Reference Range Interpretation Comments POCT GLU (test code = 9808914494) 375 mg/dL 70-110 H Lab Interpretation (test code = Abnormal 85019-1) [facility] METABOLIC PANEL (21261)2022-08-26 22:06:45 Test Item Value Reference Range Interpretation Comments NA (test code = 131 mmol/L 135-145 L 6974934392) K (test code = 5.4 mmol/L 3.5-5.0 H 1809120805) CL (test code = 95 mmol/L 98-108 L 6929792844) CO2 TOTAL (test code = 9 mmol/L 23-31 L 4029028276) AGAP (test code = 27 2-16 H 2022813477) BUN (test code = 29 mg/dL 7-23 H 3905780149) GLUCOSE (test code = 444 mg/dL 70-110 H 4238953050) CREATININE (test code = 1.01 mg/dL 0.50-1.04 9759282819) TOTAL BILI (test code = 0.9 mg/dL 0.1-1.9 6343233892) CALCIUM (test code = 9.2 mg/dL 8.6-10.6 5162945882) T PROTEIN (test code = 9.4 g/dL 6.3-8.2 H 6016988202) ALBUMIN (test code = 4.8 g/dL 3.5-5.0 7071801186) ALK PHOS (test code = 79 U/L 34-122 3687630246) ALTv (test code = 43 U/L 5-35 H 1742-6) AST(SGOT) (test code = 42 U/L 13-40 H 2706397970) eGFR (test code = 59.5 mL/min/1.73m2 6629768369) CALVIN (test code = CALVIN) Association of [...] tests). Lab Interpretation Abnormal (test code = 03284-1) [facility] 22:02:31 Test Item Value Reference Range Interpretation Comments MAGNESIUM (test code = 1678823770) 1.7 mg/dL 1.7-2.4 Lab Interpretation (test code = Normal 32924-2) [facility] WITH [id number] 21:22:43 Test Item Value Reference Range Interpretation Comments WBC (test code = 9.75 See_Comment [Automated 5180-2) message] The sy stem which generated this result transmitted reference range : 4.30 - 11.10 10*3/?L. The reference range was not used to interpret this result as normal/abnormal . RBC (test code = 4.71 See_Comment [Automated 057-3) message] The sy stem which generated this [...] RDW-SD (test code = 43.3 fL 39.0-49.9 30244-7) RDW-CV (test code = 14.4 % 12.0-15.5 788-0) PLT (test code = 371 See_Comment H [Automated 777-3) message] The sy stem which generated this result transmitted reference range : 166 - 358 10*3/ ?L. The reference r doretha was not used to interpret this result as normal/abnormal . MPV (test code = 10.2 fL 9.5-12.9 10214-0) NRBC/100 WBC (test 0.0 See_Comment [Automat ed code = 9670804375) message] The system which generated this result transmitted reference range : 0.0 - 10.0 /100 WBCs. The refer ence range was not u sed to interpret th is result as normal/abnormal . NRBC x10^3 (test code See_Comment [Auto mated = 7102388179) message] The s ystem which generated this result transmitted reference range : 10*3/?L. The reference range was not used to interpret this result as normal/abnormal . GRAN MAT (NEUT) % 52.7 % (test code = 770-8) IMM GRAN % (test code 1.10 % = 6157706278) LYMPH % (test code = 36.6 % 736-9) MONO % (test code = 6.5 % 5905-5) EOS % (test code = 1.6 % 713-8) BASO % (test code = 1.5 % 706-2) GRAN MAT x10^3(ANC) 5.13 10*3/uL 1.88-7.09 (test code = 6231737759) IMM GRAN x10^3 (test 0.11 10*3/uL 0.00-0.06 H code = 5133452849) LYMPH x10^3 (test code 3.57 10*3/uL 1.32-3.29 H = 731-0) MONO x10^3 (test code 0.63 10*3/uL 0.33-0.92 = 742-7) EOS x10^3 (test code = 0.16 10*3/uL 0.03-0.39 711-2) BASO x10^3 (test code 0.15 10*3/uL 0.01-0.07 H = 704-7) Lab Interpretation Abnormal (test code = 52404-0) [facility]22-08-26 20:35:54 Test Item Value Reference Range Interpretation Comments POCT GLU (test code = 6204734258) 400 mg/dL 70-110 H Lab Interpretation (test code = Abnormal 69226-6) [facility] Metabolic Panel (Na, K, Cl, CO2, Glucose, BUN, Creatinine, Ca)2022-06-22 03:47:00 Test Item Value Reference Range Interpretation Comments NA (test code = 136 mmol/L 135-145 0430383085) K (test code = 3.8 mmol/L 3.5-5.0 9374455711) CL (test code = 97 mmol/L 98-108 L 4702759934) CO2 TOTAL (test code = 24 mmol/L 23-31 5434288532) AGAP (test code = 2-16 4352644637) BUN (test code = 34 mg/dL 7-23 H 9068082017) GLUCOSE (test code = 270 mg/dL 70-110 H 3619287716) CREATININE (test code = 0.93 mg/dL 0.50-1.04 2811937440) CALCIUM (test code = 10.6 mg/dL 8.6-10.6 0907636502) eGFR (test code = mL/min/1.73m2 9695545805) CALVIN (test code = CALVIN) Association of [...] tests). Lab Interpretation Abnormal (test code = 22037-5) [facility] GLUCOSE (AUTOMATED)2022-06-22 03:46:00 Test Item Value Reference Range Interpretation Comments POCT GLU (test code = 9425755947) 256 mg/dL 70-110 H Lab Interpretation (test code = Abnormal 25959-3) [facility] Hospital[facility]cosylated Hemoglobin (A1C)2022-06-22 03:08:04 Test Item Value Reference Range Interpretation Comments HGB A1C (test code = 12.0 % 4.0-5.7 H 4548-4) CALVIN (test code = CALVIN) Reference RangesNormal: <5.7%Prediabetes: 5.7 - 6.4%Diabetes: > 6.5% Lab Interpretation (test Abnormal code = 97483-6) [facility] GLUCOSE (AUTOMATED)2022-06-22 02:44:02 Test Item Value Reference Range Interpretation Comments POCT GLU (test code = 2259298821) 265 mg/dL 70-110 H Lab Interpretation (test code = Abnormal 83094-5) [facility](AGE >30DAYS)2022-06-22 02:39:00 Test Item Value Reference Range Interpretation Comments POCT Glu (age>30days) (test code = 265 mg/dL 70-110 A 3342) Lab Interpretation (test code = Abnormal 48628-0) [facility] HospitalMagnesium [id number] 02:25:21 Test Item Value Reference Range Interpretation Comments MAGNESIUM (test code = 0908472069) 1.5 mg/dL 1.7-2.4 L Lab Interpretation (test code = Abnormal 14687-3) [facility]osph[facility] [id number] 02:25:01 Test Item Value Reference Range Interpretation Comments PHOSPHORUS (test code = 4064367751) 5.7 mg/dL 2.5-5.0 H Lab Interpretation (test code = Abnormal 19942-9) [facility] GLUCOSE (AUTOMATED)2022-06-22 01:44:15 Test Item Value Reference Range Interpretation Comments POCT GLU (test code = 1607483942) 298 mg/dL 70-110 H Lab Interpretation (test code = Abnormal 78399-1) [facility] WITH [id number] 01:28:41 Test Item Value Reference Range Interpretation Comments WBC (test code = See_Comment [Automated 7590-2) message] The sy stem which generated this result transmitted reference range : 4.30 - 11.10 10*3/?L. The reference range was not used to interpret this result as normal/abnormal . RBC (test code = See_Comment H [Automated 689-8) message] The sy stem which generated this [...] (test code = 37.1 fL 39.0-49.9 L 41456-7) RDW-CV (test code = 12.5 % 12.0-15.5 788-0) PLT (test code = See_Comment [Automated 777-3) message] The sy stem which generated this result transmitted reference range : 166 - 358 10*3/ ?L. The reference r doretha was not used to interpret this result as normal/abnormal . MPV (test code = 9.9 fL 9.5-12.9 83443-9) NRBC/100 WBC (test See_Comment [Automat ed code = 8564641956) message] The system which generated this result transmitted reference range : 0.0 - 10.0 /100 WBCs. The refer ence range was not u sed to interpret th is result as normal/abnormal . NRBC x10^3 (test code See_Comment [Auto mated = 6827002058) message] The s ystem which generated this result transmitted reference range : 10*3/?L. The reference range was not used to interpret this result as normal/abnormal . GRAN MAT (NEUT) % 40.5 % (test code = 770-8) IMM GRAN % (test code 0.90 % = 8173966763) LYMPH % (test code = 48.0 % 736-9) MONO % (test code = 8.5 % 5905-5) EOS % (test code = 1.1 % 713-8) BASO % (test code = 1.0 % 706-2) GRAN MAT x10^3(ANC) 4.35 10*3/uL 1.88-7.09 (test code = 7667336199) IMM GRAN x10^3 (test 0.10 10*3/uL 0.00-0.06 H code = 1599802890) LYMPH x10^3 (test code 5.17 10*3/uL 1.32-3.29 H = 731-0) MONO x10^3 (test code 0.92 10*3/uL 0.33-0.92 = 742-7) EOS x10^3 (test code = 0.12 10*3/uL 0.03-0.39 711-2) BASO x10^3 (test code 0.11 10*3/uL 0.01-0.07 H = 704-7) Lab Interpretation Abnormal (test code = 85658-0) [facility] [id number] 00:34:27 Test Item Value Reference Interpretation Comments Range TROPONIN I (test 0.000 ng/mL See_Comment [Automated code = 3552257046) message] The system which generated this result [...] biotin. Lab Interpretation Normal (test code = 93633-6) [facility]AL [id number] 00:31:09 Test Item Value Reference Range Interpretation Comments NT-proBNP (test code 21 pg/mL See_Comment [Autom ated = 0204232064) message] The system which generated this result transmitted reference range : <=125. The reference range was not used to interpret this result as normal/abnormal . CALVIN (test code = CALVIN) Biotin has been reported to cause a negative bias, interpret results relative to patient's use of biotin. Lab Interpretation Normal (test code = 64485-3) [facility]OLIC PAN[facility] (NA, K, CL, CO2, GLUCOSE, BUN, CREATININE, CA)2022-06-22 00:22:03 Test Item Value Reference Range Interpretation Comments NA (test code = 133 mmol/L 135-145 L 8530740223) K (test code = 4.7 mmol/L 3.5-5.0 6186819757) CL (test code = 91 mmol/L 98-108 L 8187681743) CO2 TOTAL (test code = 24 mmol/L 23-31 9734960747) AGAP (test code = 2-16 H 7175062846) BUN (test code = 37 mg/dL 7-23 H 6422136545) GLUCOSE (test code = 385 mg/dL 70-110 H 8442541083) CREATININE (test code = 1.09 mg/dL 0.50-1.04 H 1646531443) CALCIUM (test code = 11.5 mg/dL 8.6-10.6 H 5222510747) eGFR (test code = mL/min/1.73m2 1963683635) CALVIN (test code = CALVIN) Association of [...] tests). Lab Interpretation Abnormal (test code = 85687-4) [facility] [id number] 00:00:00 Test Item Value Reference Range Interpretation Comments GLUCOSE (test code = 2217) 259 MG/DL BUN (test code = 2208) 17 MG/DL CREATININE (test code = 2214) 0.72 MG/DL eGFR (2020 CKD-EPI) (test 106 ML/MIN/1.73 code = 20507) CALC BUN/CREAT (test code = 24 RATIO [...] code = 2219) 38 U/L COMPREHENSIVE METABOLIC [id number] 00:00:00 Test Item Value Reference Range Interpretation Comments GLUCOSE (test code = 2217) 259 MG/DL BUN (test code = 2208) 17 MG/DL CREATININE (test code = 2214) 0.72 MG/DL eGFR (2020 CKD-EPI) (test 106 ML/MIN/1.73 code = 33678) CALC BUN/CREAT (test code = 24 RATIO [...] (test code = 2219) 38 U/L LIPID [id number] 00:00:00 Test Item Value Reference Range Interpretation Comments CHOLESTEROL (test code = 2210) 196 MG/DL TRIGLYCERIDES (test code = 2232) 500 MG/DL HDL CHOLESTEROL (test code = 31 MG/DL 2220) CALC LDL CHOL (test code = 2237) (NOTE) MG/DL RISK RATIO LDL/HDL (test code = (NOTE) RATIO 2238) LIPID [id number] 00:00:00 Test Item Value Reference Range Interpretation Comments CHOLESTEROL (test code = 2210) 196 MG/DL TRIGLYCERIDES (test code = 2232) 500 MG/DL HDL CHOLESTEROL (test code = 31 MG/DL 2220) CALC LDL CHOL (test code = 2237) (NOTE) MG/DL RISK RATIO LDL/HDL (test code = (NOTE) RATIO 2238) HEMOGLOBIN [id number] 00:00:00 Test Item Value Reference Range Interpretation Comments HEMOGLOBIN A1c (test code = 58952) 11.0 % HEMOGLOBIN [id number] 00:00:00 Test Item Value Reference Range Interpretation Comments HEMOGLOBIN A1c (test code = 45237) 11.0 % HEMOGLOBIN [id number] 00:00:00 Test Item Value Reference Range Interpretation Comments HEMOGLOBIN A1c (test code = 04532) 11.0 % COMPREHENSIVE METABOLIC [id number] 00:00:00 Test Item Value Reference Range Interpretation Comments GLUCOSE (test code = 2217) 259 MG/DL BUN (test code = 2208) 17 MG/DL CREATININE (test code = 2214) 0.72 MG/DL eGFR (2020 CKD-EPI) (test 106 ML/MIN/1.73 code = 68727) CALC BUN/CREAT (test code = 24 RATIO [...] code = 2219) 38 U/L COMPREHENSIVE METABOLIC [id number] 00:00:00 Test Item Value Reference Range Interpretation Comments GLUCOSE (test code = 2217) 259 MG/DL BUN (test code = 2208) 17 MG/DL CREATININE (test code = 2214) 0.72 MG/DL eGFR (2020 CKD-EPI) (test 106 ML/MIN/1.73 code = 04940) CALC BUN/CREAT (test code = 24 RATIO [...] (test code = 2219) 38 U/L LIPID [id number] 00:00:00 Test Item Value Reference Range Interpretation Comments CHOLESTEROL (test code = 2210) 196 MG/DL TRIGLYCERIDES (test code = 2232) 500 MG/DL HDL CHOLESTEROL (test code = 31 MG/DL 2220) CALC LDL CHOL (test code = 2237) (NOTE) MG/DL RISK RATIO LDL/HDL (test code = (NOTE) RATIO 2238) LIPID [id number] 00:00:00 Test Item Value Reference Range Interpretation Comments CHOLESTEROL (test code = 2210) 196 MG/DL TRIGLYCERIDES (test code = 2232) 500 MG/DL HDL CHOLESTEROL (test code = 31 MG/DL 2220) CALC LDL CHOL (test code = 2237) (NOTE) MG/DL RISK RATIO LDL/HDL (test code = (NOTE) RATIO 2238) HEMOGLOBIN [id number] 00:00:00 Test Item Value Reference Range Interpretation Comments HEMOGLOBIN A1c (test code = 28646) 11.0 % HEMOGLOBIN [id number] 00:00:00 Test Item Value Reference Range Interpretation Comments HEMOGLOBIN A1c (test code = 03829) 11.0 % HEMOGLOBIN [id number] 00:00:00 Test Item Value Reference Range Interpretation Comments HEMOGLOBIN A1c (test code = 89787) 11.0 % COMPREHENSIVE METABOLIC [id number] 00:00:00 Test Item Value Reference Range Interpretation Comments GLUCOSE (test code = 2217) 259 MG/DL BUN (test code = 2208) 17 MG/DL CREATININE (test code = 2214) 0.72 MG/DL eGFR (2020 CKD-EPI) (test 106 ML/MIN/1.73 code = 85524) CALC BUN/CREAT (test code = 24 RATIO [...] code = 2219) 38 U/L COMPREHENSIVE METABOLIC [id number] 00:00:00 Test Item Value Reference Range Interpretation Comments GLUCOSE (test code = 2217) 259 MG/DL BUN (test code = 2208) 17 MG/DL CREATININE (test code = 2214) 0.72 MG/DL eGFR (2020 CKD-EPI) (test 106 ML/MIN/1.73 code = 25335) CALC BUN/CREAT (test code = 24 RATIO [...] (test code = 2219) 38 U/L LIPID [id number] 00:00:00 Test Item Value Reference Range Interpretation Comments CHOLESTEROL (test code = 2210) 196 MG/DL TRIGLYCERIDES (test code = 2232) 500 MG/DL HDL CHOLESTEROL (test code = 31 MG/DL 2220) CALC LDL CHOL (test code = 2237) (NOTE) MG/DL RISK RATIO LDL/HDL (test code = (NOTE) RATIO 2238) LIPID [id number] 00:00:00 Test Item Value Reference Range Interpretation Comments CHOLESTEROL (test code = 2210) 196 MG/DL TRIGLYCERIDES (test code = 2232) 500 MG/DL HDL CHOLESTEROL (test code = 31 MG/DL 2220) CALC LDL CHOL (test code = 2237) (NOTE) MG/DL RISK RATIO LDL/HDL (test code = (NOTE) RATIO 2238) HEMOGLOBIN [id number] 00:00:00 Test Item Value Reference Range Interpretation Comments HEMOGLOBIN A1c (test code = 86770) 11.0 % HEMOGLOBIN [id number] 00:00:00 Test Item Value Reference Range Interpretation Comments HEMOGLOBIN A1c (test code = 13823) 11.0 % HEMOGLOBIN [id number] 00:00:00 Test Item Value Reference Range Interpretation Comments HEMOGLOBIN A1c (test code = 65555) 11.0 % COMPREHENSIVE METABOLIC [id number] 00:00:00 Test Item Value Reference Range Interpretation Comments GLUCOSE (test code = 2217) 259 MG/DL BUN (test code = 2208) 17 MG/DL CREATININE (test code = 2214) 0.72 MG/DL eGFR (2020 CKD-EPI) (test 106 ML/MIN/1.73 code = 26755) CALC BUN/CREAT (test code = 24 RATIO [...] code = 2219) 38 U/L COMPREHENSIVE METABOLIC [id number] 00:00:00 Test Item Value Reference Range Interpretation Comments GLUCOSE (test code = 2217) 259 MG/DL BUN (test code = 2208) 17 MG/DL CREATININE (test code = 2214) 0.72 MG/DL eGFR (2020 CKD-EPI) (test 106 ML/MIN/1.73 code = 54480) CALC BUN/CREAT (test code = 24 RATIO [...] (test code = 2219) 38 U/L LIPID [id number] 00:00:00 Test Item Value Reference Range Interpretation Comments CHOLESTEROL (test code = 2210) 196 MG/DL TRIGLYCERIDES (test code = 2232) 500 MG/DL HDL CHOLESTEROL (test code = 31 MG/DL 2220) CALC LDL CHOL (test code = 2237) (NOTE) MG/DL RISK RATIO LDL/HDL (test code = (NOTE) RATIO 2238) LIPID [id number] 00:00:00 Test Item Value Reference Range Interpretation Comments CHOLESTEROL (test code = 2210) 196 MG/DL TRIGLYCERIDES (test code = 2232) 500 MG/DL HDL CHOLESTEROL (test code = 31 MG/DL 2220) CALC LDL CHOL (test code = 2237) (NOTE) MG/DL RISK RATIO LDL/HDL (test code = (NOTE) RATIO 2238) HEMOGLOBIN [id number] 00:00:00 Test Item Value Reference Range Interpretation Comments HEMOGLOBIN A1c (test code = 95791) 11.0 % HEMOGLOBIN [id number] 00:00:00 Test Item Value Reference Range Interpretation Comments HEMOGLOBIN A1c (test code = 69364) 11.0 % HEMOGLOBIN [id number] 00:00:00 Test Item Value Reference Range Interpretation Comments HEMOGLOBIN A1c (test code = 53405) 11.0 % VAGINAL PATHOGENS DNA [id number] 15:33:03 Test Item Value Reference Range Interpretation Comments ANDIE SPECIES (test NEGATIVE NEGATIVE code = ) G. VAGINALIS (test NEGATIVE NEGATIVE code = 95484) T. VAGINALIS (test NEGATIVE NEGATIVE UNLESS O THERWISE code = ) INDICATED, ALL TESTING PERFORMED [facility] [address] [place] [address] 4 LABORATORY DIRE CTOR: NOAH TODD M.D. CLIA NUMBER [id number] [facility] [place] [id number] VAGINAL PATHOGENS DNA [id number] 00:00:00 Test Item Value Reference Range Interpretation Comments ANDIE SPECIES (test code = ) NEGATIVE G. VAGINALIS (test code = 42323) NEGATIVE T. VAGINALIS (test code = 55414) NEGATIVE VAGINAL PATHOGENS DNA [id number] 00:00:00 Test Item Value Reference Range Interpretation Comments ANDIE SPECIES (test code = 22875) NEGATIVE G. VAGINALIS (test code = 30498) NEGATIVE T. VAGINALIS (test code = 93463) NEGATIVE VAGINAL PATHOGENS DNA [id number] 00:00:00 Test Item Value Reference Range Interpretation Comments ANDIE SPECIES (test code = 78419) NEGATIVE G. VAGINALIS (test code = 30666) NEGATIVE T. VAGINALIS (test code = 18810) NEGATIVE VAGINAL PATHOGENS DNA [id number] 00:00:00 Test Item Value Reference Range Interpretation Comments ANDIE SPECIES (test code = 90028) NEGATIVE G. VAGINALIS (test code = 52747) NEGATIVE T. VAGINALIS (test code = 50661) NEGATIVE VAGINAL PATHOGENS DNA [id number] 00:00:00 Test Item Value Reference Range Interpretation Comments ANDIE SPECIES (test code = 23400) NEGATIVE G. VAGINALIS (test code = 66128) NEGATIVE T. VAGINALIS (test code = 85788) NEGATIVE VAGINAL PATHOGENS DNA [id number] 00:00:00 Test Item Value Reference Range Interpretation Comments ANDIE SPECIES (test code = 73510) NEGATIVE G. VAGINALIS (test code = 17027) NEGATIVE T. VAGINALIS (test code = 17398) NEGATIVE VAGINAL PATHOGENS DNA [id number] 00:00:00 Test Item Value Reference Range Interpretation Comments ANDIE SPECIES (test code = 57389) NEGATIVE G. VAGINALIS (test code = 45422) NEGATIVE T. VAGINALIS (test code = 36692) NEGATIVE VAGINAL PATHOGENS DNA [id number] 00:00:00 Test Item Value Reference Range Interpretation Comments ANDIE SPECIES (test code = 30015) NEGATIVE G. VAGINALIS (test code = 87853) NEGATIVE T. VAGINALIS (test code = 15227) NEGATIVE VAGINAL PATHOGENS DNA [id number] 00:00:00 Test Item Value Reference Range Interpretation Comments ANDIE SPECIES (test code = 98923) NEGATIVE G. VAGINALIS (test code = 14927) NEGATIVE T. VAGINALIS (test code = 94831) NEGATIVE VAGINAL PATHOGENS DNA [id number] 00:00:00 Test Item Value Reference Range Interpretation Comments ANDIE SPECIES (test code = 52216) NEGATIVE G. VAGINALIS (test code = 00094) NEGATIVE T. VAGINALIS (test code = 07627) NEGATIVE CULTURE, [id number] 14:55:44SPECIMEN NUMBER: [id number] CULTURE, URINE SPECIMEN NUMBER: [id number] SPECIMEN COMMENT: URINE SOURCE: URINE REPORT STATUS: FINAL FINAL REPORT: 04/11/2022 <10,000 CFU/ML UROGENITAL NORMA PRESENT NO C OMMON PATHOGENSCULTURE, [id number] 00:00:00 Test Item Value Reference Range Interpretation Comments CULTURE, URINE (test SPECIMEN NUMBER: code = 09708) [id number] CULTURE, [id number] 00:00:00 Test Item Value Reference Range Interpretation Comments CULTURE, URINE (test SPECIMEN NUMBER: code = 54392) [id number] CULTURE, [id number] 00:00:00 Test Item Value Reference Range Interpretation Comments CULTURE, URINE (test SPECIMEN NUMBER: code = 51390) [id number] CULTURE, [id number] 00:00:00 Test Item Value Reference Range Interpretation Comments CULTURE, URINE (test SPECIMEN NUMBER: code = 85664) [id number] CULTURE, [id number] 00:00:00 Test Item Value Reference Range Interpretation Comments CULTURE, URINE (test SPECIMEN NUMBER: code = 48260) [id number] CULTURE, [id number] 00:00:00 Test Item Value Reference Range Interpretation Comments CULTURE, URINE (test SPECIMEN NUMBER: code = 61738) [id number] CULTURE, [id number] 00:00:00 Test Item Value Reference Range Interpretation Comments CULTURE, URINE (test SPECIMEN NUMBER: code = 17953) [id number] CULTURE, [id number] 00:00:00 Test Item Value Reference Range Interpretation Comments CULTURE, URINE (test SPECIMEN NUMBER: code = 83154) [id number] CULTURE, [id number] 00:00:00 Test Item Value Reference Range Interpretation Comments CULTURE, URINE (test SPECIMEN NUMBER: code = 18536) [id number] CULTURE, [id number] 00:00:00 Test Item Value Reference Range Interpretation Comments CULTURE, URINE (test SPECIMEN NUMBER: code = 43338) [id number] CULTURE, [id number] 00:00:00 Test Item Value Reference Range Interpretation Comments CULTURE, URINE (test SPECIMEN NUMBER: code = 31141) [id number] CULTURE, [id number] 00:00:00 Test Item Value Reference Range Interpretation Comments CULTURE, URINE (test SPECIMEN NUMBER: code = 78341) [id number] CULTURE, [id number] 00:00:00 Test Item Value Reference Range Interpretation Comments CULTURE, URINE (test SPECIMEN NUMBER: code = 78432) [id number] CULTURE, [id number] 00:00:00 Test Item Value Reference Range Interpretation Comments CULTURE, URINE (test SPECIMEN NUMBER: code = 81343) [id number] CBC W/AUTO DIFF WITH [id number] 02:13:01 Test Item Value Reference Range Interpretation [...] message] code = 1065) WBC'S The system [employer] generated this result transmitted ref erence range: [...] 0.00-0.11 UNLESS O THERWISE (test code = 88658) INDICATE D, ALL TESTING PERFORM ED ATCLINICAL PATH [facility]. [address] [place] [address] [facility] DIRECTOR: NOAH DICKENS M.D. CLIA NUMBER [id number] CAP ACCREDITATION N O. [id number] CBC W/AUTO [id number] 00:00:00 Test Item Value Reference Range Interpretation [...] NUCLEATED RBCS (test code = 0.00 K/UL 17286) CBC W/AUTO [id number] 00:00:00 Test Item Value Reference Range Interpretation [...] NUCLEATED RBCS (test code = 0.00 K/UL 43095) CBC W/AUTO [id number] 00:00:00 Test Item Value Reference Range Interpretation [...] NUCLEATED RBCS (test code = 0.00 K/UL 26381) CBC W/AUTO [id number] 00:00:00 Test Item Value Reference Range Interpretation [...] NUCLEATED RBCS (test code = 0.00 K/UL 16462) CBC W/AUTO [id number] 00:00:00 Test Item Value Reference Range Interpretation [...] NUCLEATED RBCS (test code = 0.00 K/UL 35659) CBC W/AUTO [id number] 00:00:00 Test Item Value Reference Range Interpretation [...] NUCLEATED RBCS (test code = 0.00 K/UL 36294) CBC W/AUTO [id number] 00:00:00 Test Item Value Reference Range Interpretation [...] NUCLEATED RBCS (test code = 0.00 K/UL 33013) CBC W/AUTO [id number] 00:00:00 Test Item Value Reference Range Interpretation [...] NUCLEATED RBCS (test code = 0.00 K/UL 79664) CBC W/AUTO [id number] 00:00:00 Test Item Value Reference Range Interpretation [...] NUCLEATED RBCS (test code = 0.00 K/UL 72935) CBC W/AUTO [id number] 00:00:00 Test Item Value Reference Range Interpretation [...] NUCLEATED RBCS (test code = 0.00 K/UL 64125) CBC W/AUTO [id number] 00:00:00 Test Item Value Reference Range Interpretation [...] NUCLEATED RBCS (test code = 0.00 K/UL 37266) CBC W/AUTO [id number] 00:00:00 Test Item Value Reference Range Interpretation [...] NUCLEATED RBCS (test code = 0.00 K/UL 30032) CBC W/AUTO [id number] 00:00:00 Test Item Value Reference Range Interpretation [...] NUCLEATED RBCS (test code = 0.00 K/UL 54350) CBC W/AUTO [id number] 00:00:00 Test Item Value Reference Range Interpretation [...] NUCLEATED RBCS (test code = 0.00 K/UL 27155) CBC W/AUTO [id number] 00:00:00 Test Item Value Reference Range Interpretation [...] NUCLEATED RBCS (test code = 0.00 K/UL 63559) CBC W/AUTO [id number] 00:00:00 Test Item Value Reference Range Interpretation [...] NUCLEATED RBCS (test code = 0.00 K/UL 90255) CBC W/AUTO [id number] 00:00:00 Test Item Value Reference Range Interpretation [...] code = 0.00 K/UL 88925) CBC W/AUTO [id number] 00:00:00 Test Item Value Reference Range Interpretation [...] NUCLEATED RBCS (test code = 0.00 K/UL 16394) CBC W/AUTO [id number] 00:00:00 Test Item Value Reference Range Interpretation [...] NUCLEATED RBCS (test code = 0.00 K/UL 89051) CBC W/AUTO [id number] 00:00:00 Test Item Value Reference Range Interpretation [...] NUCLEATED RBCS (test code = 0.00 K/UL 78782) CBC W/AUTO [id number] 00:00:00 Test Item Value Reference Range Interpretation [...] NUCLEATED RBCS (test code = 0.00 K/UL 48082) COMPREHENSIVE METABOLIC [id number] 04:26:32 Test Item Value Reference Range Interpretation Comments GLUCOSE (test code = 122 MG/DL 70-99 H 2216) BUN (test code = 11 MG/DL 6-20 2207) CREATININE (test 0.65 MG/DL 0.60-1.30 code = 2214) eGFR (2020 CKD-EPI) 111 >60 (test code = 79810) ML/MIN/1.73 CALC BUN/CREAT (test 17 RATIO 6-28 code = 2235) SODIUM (test code = 145 MEQ/L 227-115 0518) POTASSIUM (test code 4.2 MEQ/L 3.5-5.4 = [...] code = 38 U/L 5-40 2218) LIPID [id number] 04:26:32 Test Item Value Reference Range Interpretation [...] MOREINFORMATION , SEE CLIENT ANNOUNCE MENT AT [email or web address] RISK RATIO LDL/HDL 2.84 RATIO <3.22 (test code = 2238) HEMOGLOBIN [id number] 04:03:31 Test Item Value Reference Range Interpretation Comments HEMOGLOBIN A1c (test 10.9 % 4.2-5.6 H [employer] AN DIABETES code = 23115) ASSOCIATION [employer] FOR HGB A1C: PREDIABETES/INC REASED [...] ATCLINICAL PATH [facility] [place]. [address] [place] [address] LABORATORY DIRE CTOR: Carlos Enrique BERNARD. CHERELLEIA NUMBER [id number] CAP ACCREDITATION N O. [id number] COMPREHENSIVE METABOLIC [id number] 00:00:00 Test Item Value Reference Range Interpretation Comments GLUCOSE (test code = 2217) 122 MG/DL BUN (test code = 2208) 11 MG/DL CREATININE (test code = 2214) 0.65 MG/DL eGFR (2020 CKD-EPI) (test 111 ML/MIN/1.73 code = 33980) CALC BUN/CREAT (test code = 17 RATIO [...] code = 2219) 38 U/L COMPREHENSIVE METABOLIC [id number] 00:00:00 Test Item Value Reference Range Interpretation Comments GLUCOSE (test code = 2217) 122 MG/DL BUN (test code = 2208) 11 MG/DL CREATININE (test code = 2214) 0.65 MG/DL eGFR (2020 CKD-EPI) (test 111 ML/MIN/1.73 code = 81924) CALC BUN/CREAT (test code = 17 RATIO [...] (test code = 2219) 38 U/L LIPID [id number] 00:00:00 Test Item Value Reference Range Interpretation Comments CHOLESTEROL (test code = 2210) 169 MG/DL TRIGLYCERIDES (test code = 2232) 346 MG/DL HDL CHOLESTEROL (test code = 2220) 32 MG/DL CALC LDL CHOL (test code = 2237) 91 MG/DL RISK RATIO LDL/HDL (test code = 2.84 RATIO 2238) LIPID [id number] 00:00:00 Test Item Value Reference Range Interpretation Comments CHOLESTEROL (test code = 2210) 169 MG/DL TRIGLYCERIDES (test code = 2232) 346 MG/DL HDL CHOLESTEROL (test code = 2220) 32 MG/DL CALC LDL CHOL (test code = 2237) 91 MG/DL RISK RATIO LDL/HDL (test code = 2.84 RATIO 2238) HEMOGLOBIN [id number] 00:00:00 Test Item Value Reference Range Interpretation Comments HEMOGLOBIN A1c (test code = 59829) 10.9 % HEMOGLOBIN [id number] 00:00:00 Test Item Value Reference Range Interpretation Comments HEMOGLOBIN A1c (test code = 53739) 10.9 % HEMOGLOBIN [id number] 00:00:00 Test Item Value Reference Range Interpretation Comments HEMOGLOBIN A1c (test code = 14103) 10.9 % COMPREHENSIVE METABOLIC [id number] 00:00:00 Test Item Value Reference Range Interpretation Comments GLUCOSE (test code = 2217) 122 MG/DL BUN (test code = 2208) 11 MG/DL CREATININE (test code = 2214) 0.65 MG/DL eGFR (2020 CKD-EPI) (test 111 ML/MIN/1.73 code = 80000) CALC BUN/CREAT (test code = 17 RATIO [...] code = 2219) 38 U/L COMPREHENSIVE METABOLIC [id number] 00:00:00 Test Item Value Reference Range Interpretation Comments GLUCOSE (test code = 2217) 122 MG/DL BUN (test code = 2208) 11 MG/DL CREATININE (test code = 2214) 0.65 MG/DL eGFR (2020 CKD-EPI) (test 111 ML/MIN/1.73 code = 93148) CALC BUN/CREAT (test code = 17 RATIO [...] (test code = 2219) 38 U/L LIPID [id number] 00:00:00 Test Item Value Reference Range Interpretation Comments CHOLESTEROL (test code = 2210) 169 MG/DL TRIGLYCERIDES (test code = 2232) 346 MG/DL HDL CHOLESTEROL (test code = 2220) 32 MG/DL CALC LDL CHOL (test code = 2237) 91 MG/DL RISK RATIO LDL/HDL (test code = 2.84 RATIO 2238) LIPID [id number] 00:00:00 Test Item Value Reference Range Interpretation Comments CHOLESTEROL (test code = 2210) 169 MG/DL TRIGLYCERIDES (test code = 2232) 346 MG/DL HDL CHOLESTEROL (test code = 2220) 32 MG/DL CALC LDL CHOL (test code = 2237) 91 MG/DL RISK RATIO LDL/HDL (test code = 2.84 RATIO 2238) HEMOGLOBIN [id number] 00:00:00 Test Item Value Reference Range Interpretation Comments HEMOGLOBIN A1c (test code = 48265) 10.9 % HEMOGLOBIN [id number] 00:00:00 Test Item Value Reference Range Interpretation Comments HEMOGLOBIN A1c (test code = 71220) 10.9 % HEMOGLOBIN [id number] 00:00:00 Test Item Value Reference Range Interpretation Comments HEMOGLOBIN A1c (test code = 77850) 10.9 % COMPREHENSIVE METABOLIC [id number] 00:00:00 Test Item Value Reference Range Interpretation Comments GLUCOSE (test code = 2217) 122 MG/DL BUN (test code = 2208) 11 MG/DL CREATININE (test code = 2214) 0.65 MG/DL eGFR (2020 CKD-EPI) (test 111 ML/MIN/1.73 code = 54044) CALC BUN/CREAT (test code = 17 RATIO [...] code = 2219) 38 U/L COMPREHENSIVE METABOLIC [id number] 00:00:00 Test Item Value Reference Range Interpretation Comments GLUCOSE (test code = 2217) 122 MG/DL BUN (test code = 2208) 11 MG/DL CREATININE (test code = 2214) 0.65 MG/DL eGFR (2020 CKD-EPI) (test 111 ML/MIN/1.73 code = 23212) CALC BUN/CREAT (test code = 17 RATIO [...] (test code = 2219) 38 U/L LIPID [id number] 00:00:00 Test Item Value Reference Range Interpretation Comments CHOLESTEROL (test code = 2210) 169 MG/DL TRIGLYCERIDES (test code = 2232) 346 MG/DL HDL CHOLESTEROL (test code = 2220) 32 MG/DL CALC LDL CHOL (test code = 2237) 91 MG/DL RISK RATIO LDL/HDL (test code = 2.84 RATIO 2238) LIPID [id number] 00:00:00 Test Item Value Reference Range Interpretation Comments CHOLESTEROL (test code = 2210) 169 MG/DL TRIGLYCERIDES (test code = 2232) 346 MG/DL HDL CHOLESTEROL (test code = 2220) 32 MG/DL CALC LDL CHOL (test code = 2237) 91 MG/DL RISK RATIO LDL/HDL (test code = 2.84 RATIO 2238) HEMOGLOBIN [id number] 00:00:00 Test Item Value Reference Range Interpretation Comments HEMOGLOBIN A1c (test code = 72601) 10.9 % HEMOGLOBIN [id number] 00:00:00 Test Item Value Reference Range Interpretation Comments HEMOGLOBIN A1c (test code = 28542) 10.9 % HEMOGLOBIN [id number] 00:00:00 Test Item Value Reference Range Interpretation Comments HEMOGLOBIN A1c (test code = 23059) 10.9 % COMPREHENSIVE METABOLIC [id number] 00:00:00 Test Item Value Reference Range Interpretation Comments GLUCOSE (test code = 2217) 122 MG/DL BUN (test code = 2208) 11 MG/DL CREATININE (test code = 2214) 0.65 MG/DL eGFR (2020 CKD-EPI) (test 111 ML/MIN/1.73 code = 47602) CALC BUN/CREAT (test code = 17 RATIO [...] code = 2219) 38 U/L COMPREHENSIVE METABOLIC [id number] 00:00:00 Test Item Value Reference Range Interpretation Comments GLUCOSE (test code = 2217) 122 MG/DL BUN (test code = 2208) 11 MG/DL CREATININE (test code = 2214) 0.65 MG/DL eGFR (2020 CKD-EPI) (test 111 ML/MIN/1.73 code = 49552) CALC BUN/CREAT (test code = 17 RATIO [...] (test code = 2219) 38 U/L LIPID [id number] 00:00:00 Test Item Value Reference Range Interpretation Comments CHOLESTEROL (test code = 2210) 169 MG/DL TRIGLYCERIDES (test code = 2232) 346 MG/DL HDL CHOLESTEROL (test code = 2220) 32 MG/DL CALC LDL CHOL (test code = 2237) 91 MG/DL RISK RATIO LDL/HDL (test code = 2.84 RATIO 2238) LIPID [id number] 00:00:00 Test Item Value Reference Range Interpretation Comments CHOLESTEROL (test code = 2210) 169 MG/DL TRIGLYCERIDES (test code = 2232) 346 MG/DL HDL CHOLESTEROL (test code = 2220) 32 MG/DL CALC LDL CHOL (test code = 2237) 91 MG/DL RISK RATIO LDL/HDL (test code = 2.84 RATIO 2238) HEMOGLOBIN [id number] 00:00:00 Test Item Value Reference Range Interpretation Comments HEMOGLOBIN A1c (test code = 68521) 10.9 % HEMOGLOBIN [id number] 00:00:00 Test Item Value Reference Range Interpretation Comments HEMOGLOBIN A1c (test code = 70855) 10.9 % HEMOGLOBIN [id number] 00:00:00 Test Item Value Reference Range Interpretation Comments HEMOGLOBIN A1c (test code = 59011) 10.9 % COMPREHENSIVE METABOLIC [id number] 00:00:00 Test Item Value Reference Range Interpretation Comments GLUCOSE (test code = 2217) 122 MG/DL BUN (test code = 2208) 11 MG/DL CREATININE (test code = 2214) 0.65 MG/DL eGFR (2020 CKD-EPI) (test 111 ML/MIN/1.73 code = 49672) CALC BUN/CREAT (test code = 17 RATIO [...] code = 2219) 38 U/L COMPREHENSIVE METABOLIC [id number] 00:00:00 Test Item Value Reference Range Interpretation Comments GLUCOSE (test code = 2217) 122 MG/DL BUN (test code = 2208) 11 MG/DL CREATININE (test code = 2214) 0.65 MG/DL eGFR (2020 CKD-EPI) (test 111 ML/MIN/1.73 code = 90818) CALC BUN/CREAT (test code = 17 RATIO [...] (test code = 2219) 38 U/L LIPID [id number] 00:00:00 Test Item Value Reference Range Interpretation Comments CHOLESTEROL (test code = 2210) 169 MG/DL TRIGLYCERIDES (test code = 2232) 346 MG/DL HDL CHOLESTEROL (test code = 2220) 32 MG/DL CALC LDL CHOL (test code = 2237) 91 MG/DL RISK RATIO LDL/HDL (test code = 2.84 RATIO 2238) LIPID [id number] 00:00:00 Test Item Value Reference Range Interpretation Comments CHOLESTEROL (test code = 2210) 169 MG/DL TRIGLYCERIDES (test code = 2232) 346 MG/DL HDL CHOLESTEROL (test code = 2220) 32 MG/DL CALC LDL CHOL (test code = 2237) 91 MG/DL RISK RATIO LDL/HDL (test code = 2.84 RATIO 2238) HEMOGLOBIN [id number] 00:00:00 Test Item Value Reference Range Interpretation Comments HEMOGLOBIN A1c (test code = 04520) 10.9 % HEMOGLOBIN [id number] 00:00:00 Test Item Value Reference Range Interpretation Comments HEMOGLOBIN A1c (test code = 74277) 10.9 % HEMOGLOBIN [id number] 00:00:00 Test Item Value Reference Range Interpretation Comments HEMOGLOBIN A1c (test code = 17299) 10.9 % COMPREHENSIVE METABOLIC [id number] 00:00:00 Test Item Value Reference Range Interpretation Comments GLUCOSE (test code = 2217) 122 MG/DL BUN (test code = 2208) 11 MG/DL CREATININE (test code = 2214) 0.65 MG/DL eGFR (2020 CKD-EPI) (test 111 ML/MIN/1.73 code = 86346) CALC BUN/CREAT (test code = 17 RATIO [...] code = 2219) 38 U/L COMPREHENSIVE METABOLIC [id number] 00:00:00 Test Item Value Reference Range Interpretation Comments GLUCOSE (test code = 2217) 122 MG/DL BUN (test code = 2208) 11 MG/DL CREATININE (test code = 2214) 0.65 MG/DL eGFR (2020 CKD-EPI) (test 111 ML/MIN/1.73 code = 08685) CALC BUN/CREAT (test code = 17 RATIO [...] (test code = 2219) 38 U/L LIPID [id number] 00:00:00 Test Item Value Reference Range Interpretation Comments CHOLESTEROL (test code = 2210) 169 MG/DL TRIGLYCERIDES (test code = 2232) 346 MG/DL HDL CHOLESTEROL (test code = 2220) 32 MG/DL CALC LDL CHOL (test code = 2237) 91 MG/DL RISK RATIO LDL/HDL (test code = 2.84 RATIO 2238) LIPID [id number] 00:00:00 Test Item Value Reference Range Interpretation Comments CHOLESTEROL (test code = 2210) 169 MG/DL TRIGLYCERIDES (test code = 2232) 346 MG/DL HDL CHOLESTEROL (test code = 2220) 32 MG/DL CALC LDL CHOL (test code = 2237) 91 MG/DL RISK RATIO LDL/HDL (test code = 2.84 RATIO 2238) HEMOGLOBIN [id number] 00:00:00 Test Item Value Reference Range Interpretation Comments HEMOGLOBIN A1c (test code = 71512) 10.9 % HEMOGLOBIN [id number] 00:00:00 Test Item Value Reference Range Interpretation Comments HEMOGLOBIN A1c (test code = 69319) 10.9 % HEMOGLOBIN [id number] 00:00:00 Test Item Value Reference Range Interpretation Comments HEMOGLOBIN A1c (test code = 02874) 10.9 % COMPREHENSIVE METABOLIC [id number] 00:00:00 Test Item Value Reference Range Interpretation Comments GLUCOSE (test code = 2217) 122 MG/DL BUN (test code = 2208) 11 MG/DL CREATININE (test code = 2214) 0.65 MG/DL eGFR (2020 CKD-EPI) (test 111 ML/MIN/1.73 code = 91787) CALC BUN/CREAT (test code = 17 RATIO [...] code = 2219) 38 U/L COMPREHENSIVE METABOLIC [id number] 00:00:00 Test Item Value Reference Range Interpretation Comments GLUCOSE (test code = 2217) 122 MG/DL BUN (test code = 2208) 11 MG/DL CREATININE (test code = 2214) 0.65 MG/DL eGFR (2020 CKD-EPI) (test 111 ML/MIN/1.73 code = 22195) CALC BUN/CREAT (test code = 17 RATIO [...] (test code = 2219) 38 U/L LIPID [id number] 00:00:00 Test Item Value Reference Range Interpretation Comments CHOLESTEROL (test code = 2210) 169 MG/DL TRIGLYCERIDES (test code = 2232) 346 MG/DL HDL CHOLESTEROL (test code = 2220) 32 MG/DL CALC LDL CHOL (test code = 2237) 91 MG/DL RISK RATIO LDL/HDL (test code = 2.84 RATIO 2238) LIPID [id number] 00:00:00 Test Item Value Reference Range Interpretation Comments CHOLESTEROL (test code = 2210) 169 MG/DL TRIGLYCERIDES (test code = 2232) 346 MG/DL HDL CHOLESTEROL (test code = 2220) 32 MG/DL CALC LDL CHOL (test code = 2237) 91 MG/DL RISK RATIO LDL/HDL (test code = 2.84 RATIO 2238) HEMOGLOBIN [id number] 00:00:00 Test Item Value Reference Range Interpretation Comments HEMOGLOBIN A1c (test code = 42133) 10.9 % HEMOGLOBIN [id number] 00:00:00 Test Item Value Reference Range Interpretation Comments HEMOGLOBIN A1c (test code = 64387) 10.9 % HEMOGLOBIN [id number] 00:00:00 Test Item Value Reference Range Interpretation Comments HEMOGLOBIN A1c (test code = 36620) 10.9 % COMPREHENSIVE METABOLIC [id number] 00:00:00 Test Item Value Reference Range Interpretation Comments GLUCOSE (test code = 2217) 122 MG/DL BUN (test code = 2208) 11 MG/DL CREATININE (test code = 2214) 0.65 MG/DL eGFR (2020 CKD-EPI) (test 111 ML/MIN/1.73 code = 22162) CALC BUN/CREAT (test code = 17 RATIO [...] code = 2219) 38 U/L COMPREHENSIVE METABOLIC [id number] 00:00:00 Test Item Value Reference Range Interpretation Comments GLUCOSE (test code = 2217) 122 MG/DL BUN (test code = 2208) 11 MG/DL CREATININE (test code = 2214) 0.65 MG/DL eGFR (2020 CKD-EPI) (test 111 ML/MIN/1.73 code = 21545) CALC BUN/CREAT (test code = 17 RATIO [...] (test code = 2219) 38 U/L LIPID [id number] 00:00:00 Test Item Value Reference Range Interpretation Comments CHOLESTEROL (test code = 2210) 169 MG/DL TRIGLYCERIDES (test code = 2232) 346 MG/DL HDL CHOLESTEROL (test code = 2220) 32 MG/DL CALC LDL CHOL (test code = 2237) 91 MG/DL RISK RATIO LDL/HDL (test code = 2.84 RATIO 2238) LIPID [id number] 00:00:00 Test Item Value Reference Range Interpretation Comments CHOLESTEROL (test code = 2210) 169 MG/DL TRIGLYCERIDES (test code = 2232) 346 MG/DL HDL CHOLESTEROL (test code = 2220) 32 MG/DL CALC LDL CHOL (test code = 2237) 91 MG/DL RISK RATIO LDL/HDL (test code = 2.84 RATIO 2238) HEMOGLOBIN [id number] 00:00:00 Test Item Value Reference Range Interpretation Comments HEMOGLOBIN A1c (test code = 80330) 10.9 % HEMOGLOBIN [id number] 00:00:00 Test Item Value Reference Range Interpretation Comments HEMOGLOBIN A1c (test code = 49623) 10.9 % HEMOGLOBIN [id number] 00:00:00 Test Item Value Reference Range Interpretation Comments HEMOGLOBIN A1c (test code = 02073) 10.9 % COMPREHENSIVE METABOLIC [id number] 00:00:00 Test Item Value Reference Range Interpretation Comments GLUCOSE (test code = 2217) 122 MG/DL BUN (test code = 2208) 11 MG/DL CREATININE (test code = 2214) 0.65 MG/DL eGFR (2020 CKD-EPI) (test 111 ML/MIN/1.73 code = 39379) CALC BUN/CREAT (test code = 17 RATIO [...] code = 2219) 38 U/L COMPREHENSIVE METABOLIC [id number] 00:00:00 Test Item Value Reference Range Interpretation Comments GLUCOSE (test code = 2217) 122 MG/DL BUN (test code = 2208) 11 MG/DL CREATININE (test code = 2214) 0.65 MG/DL eGFR (2020 CKD-EPI) (test 111 ML/MIN/1.73 code = 74232) CALC BUN/CREAT (test code = 17 RATIO [...] (test code = 2219) 38 U/L LIPID [id number] 00:00:00 Test Item Value Reference Range Interpretation Comments CHOLESTEROL (test code = 2210) 169 MG/DL TRIGLYCERIDES (test code = 2232) 346 MG/DL HDL CHOLESTEROL (test code = 2220) 32 MG/DL CALC LDL CHOL (test code = 2237) 91 MG/DL RISK RATIO LDL/HDL (test code = 2.84 RATIO 2238) LIPID [id number] 00:00:00 Test Item Value Reference Range Interpretation Comments CHOLESTEROL (test code = 2210) 169 MG/DL TRIGLYCERIDES (test code = 2232) 346 MG/DL HDL CHOLESTEROL (test code = 2220) 32 MG/DL CALC LDL CHOL (test code = 2237) 91 MG/DL RISK RATIO LDL/HDL (test code = 2.84 RATIO 2238) HEMOGLOBIN [id number] 00:00:00 Test Item Value Reference Range Interpretation Comments HEMOGLOBIN A1c (test code = 53468) 10.9 % HEMOGLOBIN [id number] 00:00:00 Test Item Value Reference Range Interpretation Comments HEMOGLOBIN A1c (test code = 83632) 10.9 % HEMOGLOBIN [id number] 00:00:00 Test Item Value Reference Range Interpretation Comments HEMOGLOBIN A1c (test code = 37421) 10.9 % VITAMIN D, 25 [id number] 04:13:44 Test Item Value Reference Range Interpretation [...] ALL TESTING PERFORM ED ATCLINICAL PATH OLOGY [facility], [address] [address] LABORATORY DIRE CTOR: Carlos Enrique BERNARD. CLIA NUMBER [id number] CAP ACCREDITATION N O. [id number] HIV 1/2 4TH GEN, RFLX [id number] 03:26:41 Test Item Value Reference Range Interpretation Comments HIV 1/2 4TH GEN, RFLX CONF (test NON-REACTIVE NON-REACTIVE code = 3514) ALBUMIN, URINE, [id number] 02:46:02 Test Item Value Reference Range Interpretation Comments ALBUMIN, URINE, RANDOM (test code 10.2 MG/DL NOT ESTAB = 25190) MICROALBUMIN, [id number] 00:00:00 Test Item Value Reference Range Interpretation Comments ALBUMIN, URINE, RANDOM (test code 10.2 MG/DL = 42647) MICROALBUMIN, [id number] 00:00:00 Test Item Value Reference Range Interpretation Comments ALBUMIN, URINE, RANDOM (test code 10.2 MG/DL = 48222) HIV AB/AG COMBO RFLX [id number] 00:00:00 Test Item Value Reference Range Interpretation Comments HIV 1/2 4TH GEN, RFLX CONF (test NON-REACTIVE code = 3514) HIV AB/AG COMBO RFLX [id number] 00:00:00 Test Item Value Reference Range Interpretation Comments HIV 1/2 4TH GEN, RFLX CONF (test NON-REACTIVE code = 3514) VITAMIN D, 25 [id number] 00:00:00 Test Item Value Reference Range Interpretation Comments VITAMIN D, 25 OH (test code = 4958) 18 NG/ML VITAMIN D, 25 [id number] 00:00:00 Test Item Value Reference Range Interpretation Comments VITAMIN D, 25 OH (test code = 4958) 18 NG/ML MICROALBUMIN, [id number] 00:00:00 Test Item Value Reference Range Interpretation Comments ALBUMIN, URINE, RANDOM (test code 10.2 MG/DL = 38125) MICROALBUMIN, [id number] 00:00:00 Test Item Value Reference Range Interpretation Comments ALBUMIN, URINE, RANDOM (test code 10.2 MG/DL = 95639) HIV AB/AG COMBO RFLX [id number] 00:00:00 Test Item Value Reference Range Interpretation Comments HIV 1/2 4TH GEN, RFLX CONF (test NON-REACTIVE code = 3514) HIV AB/AG COMBO RFLX [id number] 00:00:00 Test Item Value Reference Range Interpretation Comments HIV 1/2 4TH GEN, RFLX CONF (test NON-REACTIVE code = 3514) VITAMIN D, 25 [id number] 00:00:00 Test Item Value Reference Range Interpretation Comments VITAMIN D, 25 OH (test code = 4958) 18 NG/ML VITAMIN D, 25 [id number] 00:00:00 Test Item Value Reference Range Interpretation Comments VITAMIN D, 25 OH (test code = 4958) 18 NG/ML MICROALBUMIN, [id number] 00:00:00 Test Item Value Reference Range Interpretation Comments ALBUMIN, URINE, RANDOM (test code 10.2 MG/DL = 02555) MICROALBUMIN, [id number] 00:00:00 Test Item Value Reference Range Interpretation Comments ALBUMIN, URINE, RANDOM (test code 10.2 MG/DL = 89242) HIV AB/AG COMBO RFLX [id number] 00:00:00 Test Item Value Reference Range Interpretation Comments HIV 1/2 4TH GEN, RFLX CONF (test NON-REACTIVE code = 3514) HIV AB/AG COMBO RFLX [id number] 00:00:00 Test Item Value Reference Range Interpretation Comments HIV 1/2 4TH GEN, RFLX CONF (test NON-REACTIVE code = 3514) VITAMIN D, 25 [id number] 00:00:00 Test Item Value Reference Range Interpretation Comments VITAMIN D, 25 OH (test code = 4958) 18 NG/ML VITAMIN D, 25 [id number] 00:00:00 Test Item Value Reference Range Interpretation Comments VITAMIN D, 25 OH (test code = 4958) 18 NG/ML MICROALBUMIN, [id number] 00:00:00 Test Item Value Reference Range Interpretation Comments ALBUMIN, URINE, RANDOM (test code 10.2 MG/DL = 66486) MICROALBUMIN, [id number] 00:00:00 Test Item Value Reference Range Interpretation Comments ALBUMIN, URINE, RANDOM (test code 10.2 MG/DL = 76449) HIV AB/AG COMBO RFLX [id number] 00:00:00 Test Item Value Reference Range Interpretation Comments HIV 1/2 4TH GEN, RFLX CONF (test NON-REACTIVE code = 3514) HIV AB/AG COMBO RFLX [id number] 00:00:00 Test Item Value Reference Range Interpretation Comments HIV 1/2 4TH GEN, RFLX CONF (test NON-REACTIVE code = 3514) VITAMIN D, 25 [id number] 00:00:00 Test Item Value Reference Range Interpretation Comments VITAMIN D, 25 OH (test code = 4958) 18 NG/ML VITAMIN D, 25 [id number] 00:00:00 Test Item Value Reference Range Interpretation Comments VITAMIN D, 25 OH (test code = 4958) 18 NG/ML MICROALBUMIN, [id number] 00:00:00 Test Item Value Reference Range Interpretation Comments ALBUMIN, URINE, RANDOM (test code 10.2 MG/DL = 83185) MICROALBUMIN, [id number] 00:00:00 Test Item Value Reference Range Interpretation Comments ALBUMIN, URINE, RANDOM (test code 10.2 MG/DL = 12341) HIV AB/AG COMBO RFLX [id number] 00:00:00 Test Item Value Reference Range Interpretation Comments HIV 1/2 4TH GEN, RFLX CONF (test NON-REACTIVE code = 3514) HIV AB/AG COMBO RFLX [id number] 00:00:00 Test Item Value Reference Range Interpretation Comments HIV 1/2 4TH GEN, RFLX CONF (test NON-REACTIVE code = 3514) VITAMIN D, 25 [id number] 00:00:00 Test Item Value Reference Range Interpretation Comments VITAMIN D, 25 OH (test code = 4958) 18 NG/ML VITAMIN D, 25 [id number] 00:00:00 Test Item Value Reference Range Interpretation Comments VITAMIN D, 25 OH (test code = 4958) 18 NG/ML MICROALBUMIN, [id number] 00:00:00 Test Item Value Reference Range Interpretation Comments ALBUMIN, URINE, RANDOM (test code 10.2 MG/DL = 50239) MICROALBUMIN, [id number] 00:00:00 Test Item Value Reference Range Interpretation Comments ALBUMIN, URINE, RANDOM (test code 10.2 MG/DL = 10514) HIV AB/AG COMBO RFLX [id number] 00:00:00 Test Item Value Reference Range Interpretation Comments HIV 1/2 4TH GEN, RFLX CONF (test NON-REACTIVE code = 3514) HIV AB/AG COMBO RFLX [id number] 00:00:00 Test Item Value Reference Range Interpretation Comments HIV 1/2 4TH GEN, RFLX CONF (test NON-REACTIVE code = 3514) VITAMIN D, 25 [id number] 00:00:00 Test Item Value Reference Range Interpretation Comments VITAMIN D, 25 OH (test code = 4958) 18 NG/ML VITAMIN D, 25 [id number] 00:00:00 Test Item Value Reference Range Interpretation Comments VITAMIN D, 25 OH (test code = 4958) 18 NG/ML MICROALBUMIN, [id number] 00:00:00 Test Item Value Reference Range Interpretation Comments ALBUMIN, URINE, RANDOM (test code 10.2 MG/DL = 73647) MICROALBUMIN, [id number] 00:00:00 Test Item Value Reference Range Interpretation Comments ALBUMIN, URINE, RANDOM (test code 10.2 MG/DL = 06748) HIV AB/AG COMBO RFLX [id number] 00:00:00 Test Item Value Reference Range Interpretation Comments HIV 1/2 4TH GEN, RFLX CONF (test NON-REACTIVE code = 3514) HIV AB/AG COMBO RFLX [id number] 00:00:00 Test Item Value Reference Range Interpretation Comments HIV 1/2 4TH GEN, RFLX CONF (test NON-REACTIVE code = 3514) VITAMIN D, 25 [id number] 00:00:00 Test Item Value Reference Range Interpretation Comments VITAMIN D, 25 OH (test code = 4958) 18 NG/ML VITAMIN D, 25 [id number] 00:00:00 Test Item Value Reference Range Interpretation Comments VITAMIN D, 25 OH (test code = 4958) 18 NG/ML MICROALBUMIN, [id number] 00:00:00 Test Item Value Reference Range Interpretation Comments ALBUMIN, URINE, RANDOM (test code 10.2 MG/DL = 53275) HIV AB/AG COMBO RFLX [id number] 00:00:00 Test Item Value Reference Range Interpretation Comments HIV 1/2 4TH GEN, RFLX CONF (test NON-REACTIVE code = 3514) MICROALBUMIN, [id number] 00:00:00 Test Item Value Reference Range Interpretation Comments ALBUMIN, URINE, RANDOM (test code 10.2 MG/DL = 82355) MICROALBUMIN, [id number] 00:00:00 Test Item Value Reference Range Interpretation Comments ALBUMIN, URINE, RANDOM (test code 10.2 MG/DL = 42093) HIV AB/AG COMBO RFLX [id number] 00:00:00 Test Item Value Reference Range Interpretation Comments HIV 1/2 4TH GEN, RFLX CONF (test NON-REACTIVE code = 3514) HIV AB/AG COMBO RFLX [id number] 00:00:00 Test Item Value Reference Range Interpretation Comments HIV 1/2 4TH GEN, RFLX CONF (test NON-REACTIVE code = 3514) VITAMIN D, 25 [id number] 00:00:00 Test Item Value Reference Range Interpretation Comments VITAMIN D, 25 OH (test code = 4958) 18 NG/ML VITAMIN D, 25 [id number] 00:00:00 Test Item Value Reference Range Interpretation Comments VITAMIN D, 25 OH (test code = 4958) 18 NG/ML VITAMIN D, 25 [id number] 00:00:00 Test Item Value Reference Range Interpretation Comments VITAMIN D, 25 OH (test code = 4958) 18 NG/ML MICROALBUMIN, [id number] 00:00:00 Test Item Value Reference Range Interpretation Comments ALBUMIN, URINE, RANDOM (test code 10.2 MG/DL = 41450) MICROALBUMIN, [id number] 00:00:00 Test Item Value Reference Range Interpretation Comments ALBUMIN, URINE, RANDOM (test code 10.2 MG/DL = 21351) HIV AB/AG COMBO RFLX [id number] 00:00:00 Test Item Value Reference Range Interpretation Comments HIV 1/2 4TH GEN, RFLX CONF (test NON-REACTIVE code = 3514) HIV AB/AG COMBO RFLX [id number] 00:00:00 Test Item Value Reference Range Interpretation Comments HIV 1/2 4TH GEN, RFLX CONF (test NON-REACTIVE code = 3514) VITAMIN D, 25 [id number] 00:00:00 Test Item Value Reference Range Interpretation Comments VITAMIN D, 25 OH (test code = 4958) 18 NG/ML VITAMIN D, 25 [id number] 00:00:00 Test Item Value Reference Range Interpretation Comments VITAMIN D, 25 OH (test code = 4958) 18 NG/ML MICROALBUMIN, [id number] 00:00:00 Test Item Value Reference Range Interpretation Comments ALBUMIN, URINE, RANDOM (test code 10.2 MG/DL = 41961) MICROALBUMIN, [id number] 00:00:00 Test Item Value Reference Range Interpretation Comments ALBUMIN, URINE, RANDOM (test code 10.2 MG/DL = 79009) HIV AB/AG COMBO RFLX [id number] 00:00:00 Test Item Value Reference Range Interpretation Comments HIV 1/2 4TH GEN, RFLX CONF (test NON-REACTIVE code = 3514) HIV AB/AG COMBO RFLX [id number] 00:00:00 Test Item Value Reference Range Interpretation Comments HIV 1/2 4TH GEN, RFLX CONF (test NON-REACTIVE code = 3514) VITAMIN D, 25 [id number] 00:00:00 Test Item Value Reference Range Interpretation Comments VITAMIN D, 25 OH (test code = 4958) 18 NG/ML VITAMIN D, 25 [id number] 00:00:00 Test Item Value Reference Range Interpretation Comments VITAMIN D, 25 OH (test code = 4958) 18 NG/ML LIPID [id number] 02:15:07 Test Item Value Reference Range Interpretation [...] MOREINFORMATION , SEE CLIENT ANNOUNCE MENT AT [email or web address] CalcLDL-C RISK RATIO LDL/HDL (NOTE) RATIO <3.22 UNABLE T O CALCULATE (test code = 2238) COMPREHENSIVE METABOLIC [id number] 02:15:07 Test Item Value Reference Range Interpretation Comments GLUCOSE (test code = 349 MG/DL 70-99 H 2216) BUN (test code = 17 MG/DL 6-20 2207) CREATININE (test 0.80 MG/DL 0.60-1.30 code = 2214) eGFR (2020 CKD-EPI) 94 ML/MIN/1.73 >60 (test code = 11772) CALC BUN/CREAT (test 21 RATIO 6-28 code = 2235) SODIUM (test code = 137 MEQ/L 399-457 5253) POTASSIUM (test code 4.2 MEQ/L 3.5-5.4 = [...] code = 39 U/L 5-40 2218) LIPID [id number] 00:00:00 Test Item Value Reference Range Interpretation Comments CHOLESTEROL (test code = 2210) 206 MG/DL TRIGLYCERIDES (test code = 2232) 1120 MG/DL HDL CHOLESTEROL (test code = 24 MG/DL 2220) CALC LDL CHOL (test code = 2237) (NOTE) MG/DL RISK RATIO LDL/HDL (test code = (NOTE) RATIO 2238) LIPID [id number] 00:00:00 Test Item Value Reference Range Interpretation Comments CHOLESTEROL (test code = 2210) 206 MG/DL TRIGLYCERIDES (test code = 2232) 1120 MG/DL HDL CHOLESTEROL (test code = 24 MG/DL 2220) CALC LDL CHOL (test code = 2237) (NOTE) MG/DL RISK RATIO LDL/HDL (test code = (NOTE) RATIO 2238) COMPREHENSIVE METABOLIC [id number] 00:00:00 Test Item Value Reference Range Interpretation Comments GLUCOSE (test code = 2217) 349 MG/DL BUN (test code = 2208) 17 MG/DL CREATININE (test code = 2214) 0.80 MG/DL eGFR (2020 CKD-EPI) (test code 94 ML/MIN/1.73 = 90109) CALC BUN/CREAT (test code = 21 RATIO [...] code = 2219) 39 U/L COMPREHENSIVE METABOLIC [id number] 00:00:00 Test Item Value Reference Range Interpretation Comments GLUCOSE (test code = 2217) 349 MG/DL BUN (test code = 2208) 17 MG/DL CREATININE (test code = 2214) 0.80 MG/DL eGFR (2020 CKD-EPI) (test code 94 ML/MIN/1.73 = 44565) CALC BUN/CREAT (test code = 21 RATIO [...] (test code = 2219) 39 U/L LIPID [id number] 00:00:00 Test Item Value Reference Range Interpretation Comments CHOLESTEROL (test code = 2210) 206 MG/DL TRIGLYCERIDES (test code = 2232) 1120 MG/DL HDL CHOLESTEROL (test code = 24 MG/DL 0) CALC LDL CHOL (test code = 2237) (NOTE) MG/DL RISK RATIO LDL/HDL (test code = (NOTE) RATIO 2238) LIPID [id number] 00:00:00 Test Item Value Reference Range Interpretation Comments CHOLESTEROL (test code = 2210) 206 MG/DL TRIGLYCERIDES (test code = 2232) 1120 MG/DL HDL CHOLESTEROL (test code = 24 MG/DL 2220) CALC LDL CHOL (test code = 2237) (NOTE) MG/DL RISK RATIO LDL/HDL (test code = (NOTE) RATIO 2238) COMPREHENSIVE METABOLIC [id number] 00:00:00 Test Item Value Reference Range Interpretation Comments GLUCOSE (test code = 2217) 349 MG/DL BUN (test code = 2208) 17 MG/DL CREATININE (test code = 2214) 0.80 MG/DL eGFR (2020 CKD-EPI) (test code 94 ML/MIN/1.73 = 13037) CALC BUN/CREAT (test code = 21 RATIO [...] code = 2219) 39 U/L COMPREHENSIVE METABOLIC [id number] 00:00:00 Test Item Value Reference Range Interpretation Comments GLUCOSE (test code = 2217) 349 MG/DL BUN (test code = 2208) 17 MG/DL CREATININE (test code = 2214) 0.80 MG/DL eGFR (2020 CKD-EPI) (test code 94 ML/MIN/1.73 = 32289) CALC BUN/CREAT (test code = 21 RATIO [...] (test code = 2219) 39 U/L LIPID [id number] Test Item Value Reference Range Interpretation Comments CHOLESTEROL (test code = 2210) 206 MG/DL TRIGLYCERIDES (test code = 2232) 1120 MG/DL HDL CHOLESTEROL (test code = 24 MG/DL 2220) CALC LDL CHOL (test code = 2237) (NOTE) MG/DL RISK RATIO LDL/HDL (test code = (NOTE) RATIO 2238) LIPID [id number] 00:00:00 Test Item Value Reference Range Interpretation Comments CHOLESTEROL (test code = 2210) 206 MG/DL TRIGLYCERIDES (test code = 2232) 1120 MG/DL HDL CHOLESTEROL (test code = 24 MG/DL 2220) CALC LDL CHOL (test code = 2237) (NOTE) MG/DL RISK RATIO LDL/HDL (test code = (NOTE) RATIO 2238) COMPREHENSIVE METABOLIC [id number] 00:00:00 Test Item Value Reference Range Interpretation Comments GLUCOSE (test code = 2217) 349 MG/DL BUN (test code = 2208) 17 MG/DL CREATININE (test code = 2214) 0.80 MG/DL eGFR (2020 CKD-EPI) (test code 94 ML/MIN/1.73 = 46251) CALC BUN/CREAT (test code = 21 RATIO [...] code = 2219) 39 U/L COMPREHENSIVE METABOLIC [id number] 00:00:00 Test Item Value Reference Range Interpretation Comments GLUCOSE (test code = 2217) 349 MG/DL BUN (test code = 2208) 17 MG/DL CREATININE (test code = 2214) 0.80 MG/DL eGFR (2020 CKD-EPI) (test code 94 ML/MIN/1.73 = 01613) CALC BUN/CREAT (test code = 21 RATIO [...] (test code = 2219) 39 U/L LIPID [id number] 00:00:00 Test Item Value Reference Range Interpretation Comments CHOLESTEROL (test code = 2210) 206 MG/DL TRIGLYCERIDES (test code = 2232) 1120 MG/DL HDL CHOLESTEROL (test code = 24 MG/DL 2220) CALC LDL CHOL (test code = 2237) (NOTE) MG/DL RISK RATIO LDL/HDL (test code = (NOTE) RATIO 2238) LIPID [id number] 00:00:00 Test Item Value Reference Range Interpretation Comments CHOLESTEROL (test code = 2210) 206 MG/DL TRIGLYCERIDES (test code = 2232) 1120 MG/DL HDL CHOLESTEROL (test code = 24 MG/DL 2220) CALC LDL CHOL (test code = 2237) (NOTE) MG/DL RISK RATIO LDL/HDL (test code = (NOTE) RATIO 2238) COMPREHENSIVE METABOLIC [id number] 00:00:00 Test Item Value Reference Range Interpretation Comments GLUCOSE (test code = 2217) 349 MG/DL BUN (test code = 2208) 17 MG/DL CREATININE (test code = 2214) 0.80 MG/DL eGFR (2020 CKD-EPI) (test code 94 ML/MIN/1.73 = 79469) CALC BUN/CREAT (test code = 21 RATIO [...] code = 2219) 39 U/L COMPREHENSIVE METABOLIC [id number] 00:00:00 Test Item Value Reference Range Interpretation Comments GLUCOSE (test code = 2217) 349 MG/DL BUN (test code = 2208) 17 MG/DL CREATININE (test code = 2214) 0.80 MG/DL eGFR (2020 CKD-EPI) (test code 94 ML/MIN/1.73 = 77608) CALC BUN/CREAT (test code = 21 RATIO [...] (test code = 2219) 39 U/L LIPID [id number] 00:00:00 Test Item Value Reference Range Interpretation Comments CHOLESTEROL (test code = 2210) 206 MG/DL TRIGLYCERIDES (test code = 2232) 1120 MG/DL HDL CHOLESTEROL (test code = 24 MG/DL 2220) CALC LDL CHOL (test code = 2237) (NOTE) MG/DL RISK RATIO LDL/HDL (test code = (NOTE) RATIO 2238) LIPID [id number] 00:00:00 Test Item Value Reference Range Interpretation Comments CHOLESTEROL (test code = 2210) 206 MG/DL TRIGLYCERIDES (test code = 2232) 1120 MG/DL HDL CHOLESTEROL (test code = 24 MG/DL 2220) CALC LDL CHOL (test code = 2237) (NOTE) MG/DL RISK RATIO LDL/HDL (test code = (NOTE) RATIO 2238) COMPREHENSIVE METABOLIC [id number] 00:00:00 Test Item Value Reference Range Interpretation Comments GLUCOSE (test code = 2217) 349 MG/DL BUN (test code = 2208) 17 MG/DL CREATININE (test code = 2214) 0.80 MG/DL eGFR (2020 CKD-EPI) (test code 94 ML/MIN/1.73 = 85424) CALC BUN/CREAT (test code = 21 RATIO [...] code = 2219) 39 U/L COMPREHENSIVE METABOLIC [id number] 00:00:00 Test Item Value Reference Range Interpretation Comments GLUCOSE (test code = 2217) 349 MG/DL BUN (test code = 2208) 17 MG/DL CREATININE (test code = 2214) 0.80 MG/DL eGFR (2020 CKD-EPI) (test code 94 ML/MIN/1.73 = 34928) CALC BUN/CREAT (test code = 21 RATIO [...] (test code = 2219) 39 U/L LIPID [id number] 00:00:00 Test Item Value Reference Range Interpretation Comments CHOLESTEROL (test code = 2210) 206 MG/DL TRIGLYCERIDES (test code = 2232) 1120 MG/DL HDL CHOLESTEROL (test code = 24 MG/DL 2220) CALC LDL CHOL (test code = 2237) (NOTE) MG/DL RISK RATIO LDL/HDL (test code = (NOTE) RATIO 2238) LIPID [id number] 00:00:00 Test Item Value Reference Range Interpretation Comments CHOLESTEROL (test code = 2210) 206 MG/DL TRIGLYCERIDES (test code = 2232) 1120 MG/DL HDL CHOLESTEROL (test code = 24 MG/DL 2220) CALC LDL CHOL (test code = 2237) (NOTE) MG/DL RISK RATIO LDL/HDL (test code = (NOTE) RATIO 2238) COMPREHENSIVE METABOLIC [id number] 00:00:00 Test Item Value Reference Range Interpretation Comments GLUCOSE (test code = 2217) 349 MG/DL BUN (test code = 2208) 17 MG/DL CREATININE (test code = 2214) 0.80 MG/DL eGFR (2020 CKD-EPI) (test code 94 ML/MIN/1.73 = 39474) CALC BUN/CREAT (test code = 21 RATIO [...] code = 2219) 39 U/L COMPREHENSIVE METABOLIC [id number] 00:00:00 Test Item Value Reference Range Interpretation Comments GLUCOSE (test code = 2217) 349 MG/DL BUN (test code = 2208) 17 MG/DL CREATININE (test code = 2214) 0.80 MG/DL eGFR (2020 CKD-EPI) (test code 94 ML/MIN/1.73 = 49392) CALC BUN/CREAT (test code = 21 RATIO [...] (test code = 2219) 39 U/L LIPID [id number] 00:00:00 Test Item Value Reference Range Interpretation Comments CHOLESTEROL (test code = 2210) 206 MG/DL TRIGLYCERIDES (test code = 2232) 1120 MG/DL HDL CHOLESTEROL (test code = 24 MG/DL 2220) CALC LDL CHOL (test code = 2237) (NOTE) MG/DL RISK RATIO LDL/HDL (test code = (NOTE) RATIO 2238) LIPID [id number] 00:00:00 Test Item Value Reference Range Interpretation Comments CHOLESTEROL (test code = 2210) 206 MG/DL TRIGLYCERIDES (test code = 2232) 1120 MG/DL HDL CHOLESTEROL (test code = 24 MG/DL 2220) CALC LDL CHOL (test code = 2237) (NOTE) MG/DL RISK RATIO LDL/HDL (test code = (NOTE) RATIO 2238) COMPREHENSIVE METABOLIC [id number] 00:00:00 Test Item Value Reference Range Interpretation Comments GLUCOSE (test code = 2217) 349 MG/DL BUN (test code = 2208) 17 MG/DL CREATININE (test code = 2214) 0.80 MG/DL eGFR (2020 CKD-EPI) (test code 94 ML/MIN/1.73 = 58015) CALC BUN/CREAT (test code = 21 RATIO [...] code = 2219) 39 U/L COMPREHENSIVE METABOLIC [id number] 00:00:00 Test Item Value Reference Range Interpretation Comments GLUCOSE (test code = 2217) 349 MG/DL BUN (test code = 2208) 17 MG/DL CREATININE (test code = 2214) 0.80 MG/DL eGFR (2020 CKD-EPI) (test code 94 ML/MIN/1.73 = 91952) CALC BUN/CREAT (test code = 21 RATIO [...] (test code = 2219) 39 U/L LIPID [id number] 00:00:00 Test Item Value Reference Range Interpretation Comments CHOLESTEROL (test code = 2210) 206 MG/DL TRIGLYCERIDES (test code = 2232) 1120 MG/DL HDL CHOLESTEROL (test code = 24 MG/DL 0) CALC LDL CHOL (test code = 2237) (NOTE) MG/DL RISK RATIO LDL/HDL (test code = (NOTE) RATIO 2238) COMPREHENSIVE METABOLIC [id number] 00:00:00 Test Item Value Reference Range Interpretation Comments GLUCOSE (test code = 2217) 349 MG/DL BUN (test code = 2208) 17 MG/DL CREATININE (test code = 2214) 0.80 MG/DL eGFR (2020 CKD-EPI) (test code 94 ML/MIN/1.73 = 57692) CALC BUN/CREAT (test code = 21 RATIO [...] (test code = 2219) 39 U/L LIPID [id number] 00:00:00 Test Item Value Reference Range Interpretation Comments CHOLESTEROL (test code = 2210) 206 MG/DL TRIGLYCERIDES (test code = 2232) 1120 MG/DL HDL CHOLESTEROL (test code = 24 MG/DL 2220) CALC LDL CHOL (test code = 2237) (NOTE) MG/DL RISK RATIO LDL/HDL (test code = (NOTE) RATIO 2238) LIPID [id number] 00:00:00 Test Item Value Reference Range Interpretation Comments CHOLESTEROL (test code = 2210) 206 MG/DL TRIGLYCERIDES (test code = 2232) 1120 MG/DL HDL CHOLESTEROL (test code = 24 MG/DL 2220) CALC LDL CHOL (test code = 2237) (NOTE) MG/DL RISK RATIO LDL/HDL (test code = (NOTE) RATIO 2238) COMPREHENSIVE METABOLIC [id number] 00:00:00 Test Item Value Reference Range Interpretation Comments GLUCOSE (test code = 2217) 349 MG/DL BUN (test code = 2208) 17 MG/DL CREATININE (test code = 2214) 0.80 MG/DL eGFR (2020 CKD-EPI) (test code 94 ML/MIN/1.73 = 09915) CALC BUN/CREAT (test code = 21 RATIO [...] code = 2219) 39 U/L COMPREHENSIVE METABOLIC [id number] 00:00:00 Test Item Value Reference Range Interpretation Comments GLUCOSE (test code = 2217) 349 MG/DL BUN (test code = 2208) 17 MG/DL CREATININE (test code = 2214) 0.80 MG/DL eGFR (2020 CKD-EPI) (test code 94 ML/MIN/1.73 = 85247) CALC BUN/CREAT (test code = 21 RATIO [...] (test code = 2219) 39 U/L LIPID [id number] 00:00:00 Test Item Value Reference Range Interpretation Comments CHOLESTEROL (test code = 2210) 206 MG/DL TRIGLYCERIDES (test code = 2232) 1120 MG/DL HDL CHOLESTEROL (test code = 24 MG/DL 2220) CALC LDL CHOL (test code = 2237) (NOTE) MG/DL RISK RATIO LDL/HDL (test code = (NOTE) RATIO 2238) LIPID [id number] 00:00:00 Test Item Value Reference Range Interpretation Comments CHOLESTEROL (test code = 2210) 206 MG/DL TRIGLYCERIDES (test code = 2232) 1120 MG/DL HDL CHOLESTEROL (test code = 24 MG/DL 0) CALC LDL CHOL (test code = 2237) (NOTE) MG/DL RISK RATIO LDL/HDL (test code = (NOTE) RATIO 2238) COMPREHENSIVE METABOLIC [id number] 00:00:00 Test Item Value Reference Range Interpretation Comments GLUCOSE (test code = 2217) 349 MG/DL BUN (test code = 2208) 17 MG/DL CREATININE (test code = 2214) 0.80 MG/DL eGFR (2020 CKD-EPI) (test code 94 ML/MIN/1.73 = 88069) CALC BUN/CREAT (test code = 21 RATIO [...] code = 2219) 39 U/L COMPREHENSIVE METABOLIC [id number] 00:00:00 Test Item Value Reference Range Interpretation Comments GLUCOSE (test code = 2217) 349 MG/DL BUN (test code = 2208) 17 MG/DL CREATININE (test code = 2214) 0.80 MG/DL eGFR (2020 CKD-EPI) (test code 94 ML/MIN/1.73 = 25590) CALC BUN/CREAT (test code = 21 RATIO [...] (test code = 2219) 39 U/L LIPID [id number] 00:00:00 Test Item Value Reference Range Interpretation Comments CHOLESTEROL (test code = 2210) 206 MG/DL TRIGLYCERIDES (test code = 2232) 1120 MG/DL HDL CHOLESTEROL (test code = 24 MG/DL 2220) CALC LDL CHOL (test code = 2237) (NOTE) MG/DL RISK RATIO LDL/HDL (test code = (NOTE) RATIO 2238) LIPID [id number] 00:00:00 Test Item Value Reference Range Interpretation Comments CHOLESTEROL (test code = 2210) 206 MG/DL TRIGLYCERIDES (test code = 2232) 1120 MG/DL HDL CHOLESTEROL (test code = 24 MG/DL 2220) CALC LDL CHOL (test code = 2237) (NOTE) MG/DL RISK RATIO LDL/HDL (test code = (NOTE) RATIO 2238) COMPREHENSIVE METABOLIC [id number] 00:00:00 Test Item Value Reference Range Interpretation Comments GLUCOSE (test code = 2217) 349 MG/DL BUN (test code = 2208) 17 MG/DL CREATININE (test code = 2214) 0.80 MG/DL eGFR (2020 CKD-EPI) (test code 94 ML/MIN/1.73 = 43270) CALC BUN/CREAT (test code = 21 RATIO [...] code = 2219) 39 U/L COMPREHENSIVE METABOLIC [id number] 00:00:00 Test Item Value Reference Range Interpretation Comments GLUCOSE (test code = 2217) 349 MG/DL BUN (test code = 2208) 17 MG/DL CREATININE (test code = 2214) 0.80 MG/DL eGFR (2020 CKD-EPI) (test code 94 ML/MIN/1.73 = 20174) CALC BUN/CREAT (test code = 21 RATIO [...] (test code = 2219) 39 U/L HEMOGLOBIN [id number] 04:43:57 Test Item Value Reference Range Interpretation Comments HEMOGLOBIN A1c (test 11.5 % 4.2-5.6 H [employer] AN DIABETES code = 48517) ASSOCIATION [employer] FOR HGB A1C: PREDIABETES/INC REASED [...] CONSIDER ALTERNATE TESTING OR LABO RATORY CONSULTATION. HEMOGLOBIN [id number] 00:00:00 Test Item Value Reference Range Interpretation Comments HEMOGLOBIN A1c (test code = 01960) 11.5 % HEMOGLOBIN [id number] 00:00:00 Test Item Value Reference Range Interpretation Comments HEMOGLOBIN A1c (test code = 47496) 11.5 % HEMOGLOBIN [id number] 00:00:00 Test Item Value Reference Range Interpretation Comments HEMOGLOBIN A1c (test code = 35555) 11.5 % HEMOGLOBIN [id number] 00:00:00 Test Item Value Reference Range Interpretation Comments HEMOGLOBIN A1c (test code = 35068) 11.5 % HEMOGLOBIN [id number] 00:00:00 Test Item Value Reference Range Interpretation Comments HEMOGLOBIN A1c (test code = 16657) 11.5 % HEMOGLOBIN [id number] 00:00:00 Test Item Value Reference Range Interpretation Comments HEMOGLOBIN A1c (test code = 05214) 11.5 % HEMOGLOBIN [id number] 00:00:00 Test Item Value Reference Range Interpretation Comments HEMOGLOBIN A1c (test code = 68523) 11.5 % HEMOGLOBIN [id number] 00:00:00 Test Item Value Reference Range Interpretation Comments HEMOGLOBIN A1c (test code = 19553) 11.5 % HEMOGLOBIN [id number] 00:00:00 Test Item Value Reference Range Interpretation Comments HEMOGLOBIN A1c (test code = 62419) 11.5 % HEMOGLOBIN [id number] 00:00:00 Test Item Value Reference Range Interpretation Comments HEMOGLOBIN A1c (test code = 03157) 11.5 % HEMOGLOBIN [id number] 00:00:00 Test Item Value Reference Range Interpretation Comments HEMOGLOBIN A1c (test code = 89914) 11.5 % HEMOGLOBIN [id number] 00:00:00 Test Item Value Reference Range Interpretation Comments HEMOGLOBIN A1c (test code = 81740) 11.5 % HEMOGLOBIN [id number] 00:00:00 Test Item Value Reference Range Interpretation Comments HEMOGLOBIN A1c (test code = 91994) 11.5 % HEMOGLOBIN [id number] 00:00:00 Test Item Value Reference Range Interpretation Comments HEMOGLOBIN A1c (test code = 82045) 11.5 % HEMOGLOBIN [id number] 00:00:00 Test Item Value Reference Range Interpretation Comments HEMOGLOBIN A1c (test code = 75231) 11.5 % HEMOGLOBIN [id number] 00:00:00 Test Item Value Reference Range Interpretation Comments HEMOGLOBIN A1c (test code = 90929) 11.5 % HEMOGLOBIN [id number] 00:00:00 Test Item Value Reference Range Interpretation Comments HEMOGLOBIN A1c (test code = 65272) 11.5 % HEMOGLOBIN [id number] 00:00:00 Test Item Value Reference Range Interpretation Comments HEMOGLOBIN A1c (test code = 27779) 11.5 % HEMOGLOBIN [id number] 00:00:00 Test Item Value Reference Range Interpretation Comments HEMOGLOBIN A1c (test code = 44198) 11.5 % HEMOGLOBIN [id number] 00:00:00 Test Item Value Reference Range Interpretation Comments HEMOGLOBIN A1c (test code = 02891) 11.5 % HEMOGLOBIN [id number] 00:00:00 Test Item Value Reference Range Interpretation Comments HEMOGLOBIN A1c (test code = 00752) 11.5 % HEMOGLOBIN [id number] 00:00:00 Test Item Value Reference Range Interpretation Comments HEMOGLOBIN A1c (test code = 77268) 11.5 % HEMOGLOBIN [id number] 00:00:00 Test Item Value Reference Range Interpretation Comments HEMOGLOBIN A1c (test code = 03507) 11.5 % HEMOGLOBIN [id number] 00:00:00 Test Item Value Reference Range Interpretation Comments HEMOGLOBIN A1c (test code = 23288) 11.5 % HEMOGLOBIN [id number] 00:00:00 Test Item Value Reference Range Interpretation Comments HEMOGLOBIN A1c (test code = 39474) 11.5 % HEMOGLOBIN [id number] 00:00:00 Test Item Value Reference Range Interpretation Comments HEMOGLOBIN A1c (test code = 35694) 11.5 % HEMOGLOBIN [id number] 00:00:00 Test Item Value Reference Range Interpretation Comments HEMOGLOBIN A1c (test code = 20374) 11.5 % HEMOGLOBIN [id number] 00:00:00 Test Item Value Reference Range Interpretation Comments HEMOGLOBIN A1c (test code = 48171) 11.5 % HEMOGLOBIN [id number] 00:00:00 Test Item Value Reference Range Interpretation Comments HEMOGLOBIN A1c (test code = 02818) 11.5 % HEMOGLOBIN [id number] 00:00:00 Test Item Value Reference Range Interpretation Comments HEMOGLOBIN A1c (test code = 92970) 11.5 % HEMOGLOBIN [id number] 00:00:00 Test Item Value Reference Range Interpretation Comments HEMOGLOBIN A1c (test code = 20372) 11.5 % HEMOGLOBIN [id number] 00:00:00 Test Item Value Reference Range Interpretation Comments HEMOGLOBIN A1c (test code = 92113) 11.5 % CULTURE, [id number] 11:34:56SPECIMEN NUMBER: [id number] CULTURE, URINE SPECIMEN NUMBER: [id number] SPECIMEN COMMENT: URINE SOURCE:URINE REPORT STATUS: FINAL FINAL REPORT: 10/25/2021 10-50,000 CFU/ML UROGENITAL NORMA PRESENT NO COMM ON PATHOGENSCULTURE, [id number] 00:00:00 Test Item Value Reference Range Interpretation Comments CULTURE, URINE (test SPECIMEN NUMBER: code = 52903) [id number] CULTURE, [id number] 00:00:00 Test Item Value Reference Range Interpretation Comments CULTURE, URINE (test SPECIMEN NUMBER: code = 64563) [id number] CULTURE, [id number] 00:00:00 Test Item Value Reference Range Interpretation Comments CULTURE, URINE (test SPECIMEN NUMBER: code = 23769) [id number] CULTURE, [id number] 00:00:00 Test Item Value Reference Range Interpretation Comments CULTURE, URINE (test SPECIMEN NUMBER: code = 55740) [id number] CULTURE, [id number] 00:00:00 Test Item Value Reference Range Interpretation Comments CULTURE, URINE (test SPECIMEN NUMBER: code = 33329) [id number] CULTURE, [id number] 00:00:00 Test Item Value Reference Range Interpretation Comments CULTURE, URINE (test SPECIMEN NUMBER: code = 71799) [id number] CULTURE, [id number] 00:00:00 Test Item Value Reference Range Interpretation Comments CULTURE, URINE (test SPECIMEN NUMBER: code = 72367) [id number] CULTURE, [id number] 00:00:00 Test Item Value Reference Range Interpretation Comments CULTURE, URINE (test SPECIMEN NUMBER: code = 70020) [id number] CULTURE, [id number] 00:00:00 Test Item Value Reference Range Interpretation Comments CULTURE, URINE (test SPECIMEN NUMBER: code = 48800) [id number] CULTURE, [id number] 00:00:00 Test Item Value Reference Range Interpretation Comments CULTURE, URINE (test SPECIMEN NUMBER: code = 53517) [id number] CULTURE, [id number] 00:00:00 Test Item Value Reference Range Interpretation Comments CULTURE, URINE (test SPECIMEN NUMBER: code = 88696) [id number] CULTURE, [id number] 00:00:00 Test Item Value Reference Range Interpretation Comments CULTURE, URINE (test SPECIMEN NUMBER: code = 09985) [id number] CULTURE, [id number] 00:00:00 Test Item Value Reference Range Interpretation Comments CULTURE, URINE (test SPECIMEN NUMBER: code = 01735) [id number] CULTURE, [id number] 00:00:00 Test Item Value Reference Range Interpretation Comments CULTURE, URINE (test SPECIMEN NUMBER: code = 49837) [id number] CULTURE, [id number] 00:00:00 Test Item Value Reference Range Interpretation Comments CULTURE, URINE (test SPECIMEN NUMBER: code = 24179) [id number] CULTURE, [id number] 00:00:00 Test Item Value Reference Range Interpretation Comments CULTURE, URINE (test SPECIMEN NUMBER: code = 72079) [id number] CULTURE, [id number] 00:00:00 Test Item Value Reference Range Interpretation Comments CULTURE, URINE (test SPECIMEN NUMBER: code = 95264) [id number] CULTURE, [id number] 00:00:00 Test Item Value Reference Range Interpretation Comments CULTURE, URINE (test SPECIMEN NUMBER: code = 53353) [id number] CULTURE, [id number] 00:00:00 Test Item Value Reference Range Interpretation Comments CULTURE, URINE (test SPECIMEN NUMBER: code = 42141) [id number] CULTURE, [id number] 00:00:00 Test Item Value Reference Range Interpretation Comments CULTURE, URINE (test SPECIMEN NUMBER: code = 38988) [id number] CULTURE, [id number] 00:00:00 Test Item Value Reference Range Interpretation Comments CULTURE, URINE (test SPECIMEN NUMBER: code = 21706) [id number] VAGINAL PATHOGENS DNA [id number] 11:55:20 Test Item Value Reference Range Interpretation Comments ANDIE SPECIES (test NEGATIVE NEGATIVE code = ) G. VAGINALIS (test NEGATIVE NEGATIVE code = ) T. VAGINALIS (test NEGATIVE NEGATIVE UNLESS O THERWISE code = ) INDICATED, ALL TESTING PERFORMED [facility], [place] [address] 4 LABORATORY DIRE CTOR: NOAH TODD M.D. [place] NUMBER [id number] [facility] [place] [id number] VAGINAL PATHOGENS DNA [id number] 00:00:00 Test Item Value Reference Range Interpretation Comments ANDIE SPECIES (test code = 85550) NEGATIVE G. VAGINALIS (test code = 89570) NEGATIVE T. VAGINALIS (test code = 16366) NEGATIVE VAGINAL PATHOGENS DNA [id number] 00:00:00 Test Item Value Reference Range Interpretation Comments ANDIE SPECIES (test code = 46895) NEGATIVE G. VAGINALIS (test code = 24327) NEGATIVE T. VAGINALIS (test code = 57202) NEGATIVE VAGINAL PATHOGENS DNA [id number] 00:00:00 Test Item Value Reference Range Interpretation Comments ANDIE SPECIES (test code = 67968) NEGATIVE G. VAGINALIS (test code = 83785) NEGATIVE T. VAGINALIS (test code = 07016) NEGATIVE VAGINAL PATHOGENS DNA [id number] 00:00:00 Test Item Value Reference Range Interpretation Comments ANDIE SPECIES (test code = 48640) NEGATIVE G. VAGINALIS (test code = 52302) NEGATIVE T. VAGINALIS (test code = 17801) NEGATIVE VAGINAL PATHOGENS DNA [id number] 00:00:00 Test Item Value Reference Range Interpretation Comments ANDIE SPECIES (test code = 86905) NEGATIVE G. VAGINALIS (test code = 74556) NEGATIVE T. VAGINALIS (test code = 28190) NEGATIVE VAGINAL PATHOGENS DNA [id number] 00:00:00 Test Item Value Reference Range Interpretation Comments ANDIE SPECIES (test code = 78217) NEGATIVE G. VAGINALIS (test code = 84763) NEGATIVE T. VAGINALIS (test code = 01077) NEGATIVE VAGINAL PATHOGENS DNA [id number] 00:00:00 Test Item Value Reference Range Interpretation Comments ANDIE SPECIES (test code = 00387) NEGATIVE G. VAGINALIS (test code = 95289) NEGATIVE T. VAGINALIS (test code = 41056) NEGATIVE VAGINAL PATHOGENS DNA [id number] 00:00:00 Test Item Value Reference Range Interpretation Comments ANDIE SPECIES (test code = 07422) NEGATIVE G. VAGINALIS (test code = 37334) NEGATIVE T. VAGINALIS (test code = 76966) NEGATIVE VAGINAL PATHOGENS DNA [id number] 00:00:00 Test Item Value Reference Range Interpretation Comments ANDEI SPECIES (test code = 36354) NEGATIVE G. VAGINALIS (test code = 24735) NEGATIVE T. VAGINALIS (test code = 02303) NEGATIVE VAGINAL PATHOGENS DNA [id number] 00:00:00 Test Item Value Reference Range Interpretation Comments ANDIE SPECIES (test code = 55367) NEGATIVE G. VAGINALIS (test code = 11020) NEGATIVE T. VAGINALIS (test code = 07491) NEGATIVE VAGINAL PATHOGENS DNA [id number] 00:00:00 Test Item Value Reference Range Interpretation Comments ANDIE SPECIES (test code = 24228) NEGATIVE G. VAGINALIS (test code = 80033) NEGATIVE T. VAGINALIS (test code = 67018) NEGATIVE VAGINAL PATHOGENS DNA [id number] 00:00:00 Test Item Value Reference Range Interpretation Comments ANDIE SPECIES (test code = 17337) NEGATIVE G. VAGINALIS (test code = 62762) NEGATIVE T. VAGINALIS (test code = 45277) NEGATIVE VAGINAL PATHOGENS DNA [id number] 00:00:00 Test Item Value Reference Range Interpretation Comments ANDIE SPECIES (test code = 81985) NEGATIVE G. VAGINALIS (test code = 29373) NEGATIVE T. VAGINALIS (test code = 16481) NEGATIVE VAGINAL PATHOGENS DNA [id number] 00:00:00 Test Item Value Reference Range Interpretation Comments ANDIE SPECIES (test code = 53573) NEGATIVE G. VAGINALIS (test code = 08833) NEGATIVE T. VAGINALIS (test code = 24132) NEGATIVE VAGINAL PATHOGENS DNA [id number] 00:00:00 Test Item Value Reference Range Interpretation Comments ANDIE SPECIES (test code = 74629) NEGATIVE G. VAGINALIS (test code = 85783) NEGATIVE T. VAGINALIS (test code = 09985) NEGATIVE VAGINAL PATHOGENS DNA [id number] 00:00:00 Test Item Value Reference Range Interpretation Comments ANDIE SPECIES (test code = 08927) NEGATIVE G. VAGINALIS (test code = 64893) NEGATIVE T. VAGINALIS (test code = 95422) NEGATIVE VAGINAL PATHOGENS DNA [id number] 00:00:00 Test Item Value Reference Range Interpretation Comments ANDIE SPECIES (test code = 28984) NEGATIVE G. VAGINALIS (test code = 61003) NEGATIVE T. VAGINALIS (test code = 21265) NEGATIVE VAGINAL PATHOGENS DNA [id number] 00:00:00 Test Item Value Reference Range Interpretation Comments ANDIE SPECIES (test code = 50492) NEGATIVE G. VAGINALIS (test code = 22055) NEGATIVE T. VAGINALIS (test code = 13608) NEGATIVE VAGINAL PATHOGENS DNA [id number] 00:00:00 Test Item Value Reference Range Interpretation Comments ANDIE SPECIES (test code = 43359) NEGATIVE G. VAGINALIS (test code = 40974) NEGATIVE T. VAGINALIS (test code = 08568) NEGATIVE VAGINAL PATHOGENS DNA [id number] 00:00:00 Test Item Value Reference Range Interpretation Comments ANDIE SPECIES (test code = 42574) NEGATIVE G. VAGINALIS (test code = 02298) NEGATIVE T. VAGINALIS (test code = 48921) NEGATIVE VAGINAL PATHOGENS DNA [id number] 00:00:00 Test Item Value Reference Range Interpretation Comments ANDIE SPECIES (test code = 29207) NEGATIVE G. VAGINALIS (test code = 45089) NEGATIVE T. VAGINALIS (test code = 33992) NEGATIVE POCT GLUCOSE (AUTOMATED)2021-10-17 01:51:54 Test Item Value Reference Range Interpretation Comments POCT GLU (test code = 5181956591) 365 mg/dL 70-110 H Lab Interpretation (test code = Abnormal 73035-8) [facility] GLUCOSE (AUTOMATED)2021-10-17 00:46:51 Test Item Value Reference Range Interpretation Comments POCT GLU (test code = 1359506383) 435 mg/dL 70-110 H Lab Interpretation (test code = Abnormal 78211-0) [facility] GLUCOSE(AGE >30DAYS)2021-10-17 00:41:00 Test Item Value Reference Range Interpretation Comments POCT Glu (age>30days) (test code = 435 mg/dL 70-110 A 3342) Lab Interpretation (test code = Abnormal 76761-7) [id number] 23:40:42 Test Item Value Reference Interpretation Comments Range TROPONIN I (test 0.001 ng/mL See_Comment [Automated code = 0701272025) message] The system which generated this result [...] biotin. Lab Interpretation Normal (test code = 67588-9) [id number] 23:37:40 Test Item Value Reference Range Interpretation Comments NT-proBNP (test code 20 pg/mL See_Comment [Autom ated = 0642573943) message] The system which generated this result transmitted reference range : <=125. The reference range was not used to interpret this result as normal/abnormal . CALVIN (test code = CALVIN) Biotin has been reported to cause a negative bias, interpret results relative to patient's use of biotin. Lab Interpretation Normal (test code = 17591-7) [facility] (09967)2021-10-16 23:29:18 Test Item Value Reference Range Interpretation Comments NA (test code = 134 mmol/L 135-145 L 7385825606) K (test code = 4.4 mmol/L 3.5-5.0 6442209719) CL (test code = 97 mmol/L 98-108 L 4012283078) CO2 TOTAL (test code = 23 mmol/L 23-31 1795269905) AGAP (test code = 2-16 8027817879) BUN (test code = 21 mg/dL 7-23 2047064282) GLUCOSE (test code = 431 mg/dL 70-110 H 0760685146) CREATININE (test code = 0.88 mg/dL 0.50-1.04 2779902362) TOTAL BILI (test code = 0.5 mg/dL 0.1-1.6 9480607466) CALCIUM (test code = 9.2 mg/dL 8.6-10.6 7242025970) T PROTEIN (test code = 7.4 g/dL 6.3-8.2 9036342827) ALBUMIN (test code = 4.7 g/dL 3.5-5.0 2489846245) ALK PHOS (test code = 52 U/L 34-122 5579777116) ALTv (test code = 30 U/L 5-35 1742-6) AST(SGOT) (test code = 25 U/L 13-40 4950774982) eGFR (test code = mL/min/1.73m2 9882262562) CALVIN (test code = CALVIN) Association of [...] tests). Lab Interpretation Abnormal (test code = 87474-4) [facility] WITH [id number] 23:20:10 Test Item Value Reference Range Interpretation Comments WBC (test code = See_Comment [Automated 5290-2) message] The sy stem which generated this [...] RDW-SD (test code = 40.5 fL 39.0-49.9 67857-2) RDW-CV (test code = 13.5 % 12.0-15.5 788-0) PLT (test code = See_Comment [Automated 777-3) message] The sy stem which generated this result transmitted reference range : 166 - 358 10*3/ ?L. The reference r doretha was not used to interpret this result as normal/abnormal . MPV (test code = 9.6 fL 9.5-12.9 69641-9) NRBC/100 WBC (test See_Comment [Automat ed code = 5726235894) message] The system which generated this result transmitted reference range : 0.0 - 10.0 /100 WBCs. The refer ence range was not u sed to interpret th is result as normal/abnormal . NRBC x10^3 (test code <0.01 See_Comment [Auto mated = 1275684460) message] The s ystem which generated this result transmitted reference range : 10*3/?L. The reference range was not used to interpret this result as normal/abnormal . GRAN MAT (NEUT) % 43.2 % (test code = 770-8) IMM GRAN % (test code 0.70 % = 3766163015) LYMPH % (test code = 42.8 % 736-9) MONO % (test code = 9.2 % 5905-5) EOS % (test code = 3.0 % 713-8) BASO % (test code = 1.1 % 706-2) GRAN MAT x10^3(ANC) 3.15 10*3/uL 1.88-7.09 (test code = 9441127446) IMM GRAN x10^3 (test 0.05 10*3/uL 0.00-0.06 code = 0734204994) LYMPH x10^3 (test code 3.12 10*3/uL 1.32-3.29 = 731-0) MONO x10^3 (test code 0.67 10*3/uL 0.33-0.92 = 742-7) EOS x10^3 (test code = 0.22 10*3/uL 0.03-0.39 711-2) BASO x10^3 (test code 0.08 10*3/uL 0.01-0.07 H = 704-7) Lab Interpretation Abnormal (test code = 26416-6) [facility] Whole [id number] 23:09:32 Test Item Value Reference Range Interpretation Comments LACTIC ACID (test code = 1.94 mmol/L 0.50-2.20 8387312999) Lab Interpretation (test code = Normal 80348-8) [facility] [id number] 22:34:00 Test Item Value Reference Range Interpretation Comments POCT PREG (test code = 1605) Negative On board controls acceptable with Present C Line (test code = 3574) POCT PREG LOT # (test code = 3575) [id number] POCT PREG TEST DATE (test 2023-04-09 code = 3576) Lab Interpretation (test code = Normal 10499-8) [facility] [id number] 08:52:36SPECIMEN NUMBER: [id number] CULTURE, URINE SPECIMEN NUMBER: [id number] SPECIMEN COMMENT: URINE SOURCE:URINE REPORT STATUS: FINAL FINAL REPORT: 10/12/2021 >100,000 CFU/ML UROGENITAL NORMA PRESENT NO COMMON PATHOGENS UNLESS OTHERWISE INDICATED, ALL TESTING PERFORMED [facility] [address] [place] [address] [employer] APPLICATION CONSULTANT: George BERNARD NUMBER [id number] [facility] [place]. [id number], [id number] 00:00:00 Test Item Value Reference Range Interpretation Comments CULTURE, URINE (test SPECIMEN NUMBER: code = 22792) [id number] CULTURE, [id number] 00:00:00 Test Item Value Reference Range Interpretation Comments CULTURE, URINE (test SPECIMEN NUMBER: code = 49188) [id number] CULTURE, [id number] 00:00:00 Test Item Value Reference Range Interpretation Comments CULTURE, URINE (test SPECIMEN NUMBER: code = 47195) [id number] CULTURE, [id number] 00:00:00 Test Item Value Reference Range Interpretation Comments CULTURE, URINE (test SPECIMEN NUMBER: code = 20502) [id number] CULTURE, [id number] 00:00:00 Test Item Value Reference Range Interpretation Comments CULTURE, URINE (test SPECIMEN NUMBER: code = 45329) [id number] CULTURE, [id number] 00:00:00 Test Item Value Reference Range Interpretation Comments CULTURE, URINE (test SPECIMEN NUMBER: code = 50971) [id number] CULTURE, [id number] 00:00:00 Test Item Value Reference Range Interpretation Comments CULTURE, URINE (test SPECIMEN NUMBER: code = 91851) [id number] CULTURE, [id number] 00:00:00 Test Item Value Reference Range Interpretation Comments CULTURE, URINE (test SPECIMEN NUMBER: code = 59432) [id number] CULTURE, [id number] 00:00:00 Test Item Value Reference Range Interpretation Comments CULTURE, URINE (test SPECIMEN NUMBER: code = 26457) [id number] CULTURE, [id number] 00:00:00 Test Item Value Reference Range Interpretation Comments CULTURE, URINE (test SPECIMEN NUMBER: code = 07561) [id number] CULTURE, [id number] 00:00:00 Test Item Value Reference Range Interpretation Comments CULTURE, URINE (test SPECIMEN NUMBER: code = 98659) [id number] CULTURE, [id number] 00:00:00 Test Item Value Reference Range Interpretation Comments CULTURE, URINE (test SPECIMEN NUMBER: code = 57019) [id number] CULTURE, [id number] 00:00:00 Test Item Value Reference Range Interpretation Comments CULTURE, URINE (test SPECIMEN NUMBER: code = 06229) [id number] CULTURE, [id number] 00:00:00 Test Item Value Reference Range Interpretation Comments CULTURE, URINE (test SPECIMEN NUMBER: code = 80023) [id number] CULTURE, [id number] 00:00:00 Test Item Value Reference Range Interpretation Comments CULTURE, URINE (test SPECIMEN NUMBER: code = 41136) [id number] CULTURE, [id number] 00:00:00 Test Item Value Reference Range Interpretation Comments CULTURE, URINE (test SPECIMEN NUMBER: code = 44512) [id number] CULTURE, [id number] 00:00:00 Test Item Value Reference Range Interpretation Comments CULTURE, URINE (test SPECIMEN NUMBER: code = 28292) [id number] CULTURE, [id number] 00:00:00 Test Item Value Reference Range Interpretation Comments CULTURE, URINE (test SPECIMEN NUMBER: code = 61763) [id number] CULTURE, [id number] 00:00:00 Test Item Value Reference Range Interpretation Comments CULTURE, URINE (test SPECIMEN NUMBER: code = 53340) [id number] CULTURE, [id number] 00:00:00 Test Item Value Reference Range Interpretation Comments CULTURE, URINE (test SPECIMEN NUMBER: code = 61159) [id number] CULTURE, [id number] 00:00:00 Test Item Value Reference Range Interpretation Comments CULTURE, URINE (test SPECIMEN NUMBER: code = 49079) [id number] URINE CULTURE, NO [id number] 09:46:36SPECIMEN NUMBER: [id number] URINE CULTURE, NO SENS SPECIMEN NUMBER: [id number] SPECIMEN COMMENT: URINESOURCE: URINE REPORT STATUS: FINAL FINAL REPORT: 10/08/2021 50-100,000 CFU/ML UROGENITAL NORMA PRESENT NO COMMON PATHOGENSURINE CULTURE, NO [id number] 00:00:00 Test Item Value Reference Range Interpretation Comments URINE CULTURE, NO SPECIMEN NUMBER: SENS (test code = 047455201 28200) URINE CULTURE, NO [id number] 00:00:00 Test Item Value Reference Range Interpretation Comments URINE CULTURE, NO SPECIMEN NUMBER: SENS (test code = 450465202 49502) URINE CULTURE, NO [id number] 00:00:00 Test Item Value Reference Range Interpretation Comments URINE CULTURE, NO SPECIMEN NUMBER: SENS (test code = 526275460 68564) URINE CULTURE, NO [id number] 00:00:00 Test Item Value Reference Range Interpretation Comments URINE CULTURE, NO SPECIMEN NUMBER: SENS (test code = 251770929 07662) URINE CULTURE, NO [id number] 00:00:00 Test Item Value Reference Range Interpretation Comments URINE CULTURE, NO SPECIMEN NUMBER: SENS (test code = 911099651 05561) URINE CULTURE, NO [id number] 00:00:00 Test Item Value Reference Range Interpretation Comments URINE CULTURE, NO SPECIMEN NUMBER: SENS (test code = 109135995 61901) URINE CULTURE, NO [id number] 00:00:00 Test Item Value Reference Range Interpretation Comments URINE CULTURE, NO SPECIMEN NUMBER: SENS (test code = 666525541 38175) URINE CULTURE, NO [id number] 00:00:00 Test Item Value Reference Range Interpretation Comments URINE CULTURE, NO SPECIMEN NUMBER: SENS (test code = 188298864 47544) URINE CULTURE, NO [id number] 00:00:00 Test Item Value Reference Range Interpretation Comments URINE CULTURE, NO SPECIMEN NUMBER: SENS (test code = 188699941 78871) URINE CULTURE, NO [id number] 00:00:00 Test Item Value Reference Range Interpretation Comments URINE CULTURE, NO SPECIMEN NUMBER: SENS (test code = 908876131 46455) URINE CULTURE, NO [id number] 00:00:00 Test Item Value Reference Range Interpretation Comments URINE CULTURE, NO SPECIMEN NUMBER: SENS (test code = 883794576 58203) URINE CULTURE, NO [id number] 00:00:00 Test Item Value Reference Range Interpretation Comments URINE CULTURE, NO SPECIMEN NUMBER: SENS (test code = 624364058 45021) URINE CULTURE, NO [id number] 00:00:00 Test Item Value Reference Range Interpretation Comments URINE CULTURE, NO SPECIMEN NUMBER: SENS (test code = 872965478 92759) URINE CULTURE, NO [id number] 00:00:00 Test Item Value Reference Range Interpretation Comments URINE CULTURE, NO SPECIMEN NUMBER: SENS (test code = 510651027 66051) URINE CULTURE, NO [id number] 00:00:00 Test Item Value Reference Range Interpretation Comments URINE CULTURE, NO SPECIMEN NUMBER: SENS (test code = 580466651 64273) URINE CULTURE, NO [id number] 00:00:00 Test Item Value Reference Range Interpretation Comments URINE CULTURE, NO SPECIMEN NUMBER: SENS (test code = 962566285 33239) URINE CULTURE, NO [id number] 00:00:00 Test Item Value Reference Range Interpretation Comments URINE CULTURE, NO SPECIMEN NUMBER: SENS (test code = 452495635 35427) URINE CULTURE, NO [id number] 00:00:00 Test Item Value Reference Range Interpretation Comments URINE CULTURE, NO SPECIMEN NUMBER: SENS (test code = 532013591 76423) URINE CULTURE, NO [id number] 00:00:00 Test Item Value Reference Range Interpretation Comments URINE CULTURE, NO SPECIMEN NUMBER: SENS (test code = 508036254 76981) URINE CULTURE, NO [id number] 00:00:00 Test Item Value Reference Range Interpretation Comments URINE CULTURE, NO SPECIMEN NUMBER: SENS (test code = 390207576 36177) URINE CULTURE, NO [id number] 00:00:00 Test Item Value Reference Range Interpretation Comments URINE CULTURE, NO SPECIMEN NUMBER: SENS (test code = 140532002 57409) CBC W/AUTO DIFF WITH [id number] 07:54:02 Test Item Value Reference Range Interpretation [...] RBCS 0.00 K/UL 0.00-0.11 (test code = 55527) COMPREHENSIVE METABOLIC [id number] 05:34:02 Test Item Value Reference Range Interpretation Comments GLUCOSE (test code = 108 MG/DL 70-99 H 2216) BUN (test code = 17 MG/DL 6-20 2207) CREATININE (test 0.84 MG/DL 0.60-1.30 code = 2214) eGFR (2020 CKD-EPI) 88 >60 (test code = 25203) ML/MIN/1.73 CALC BUN/CREAT (test 20 RATIO 6-28 code = 2235) SODIUM (test code = 141 MEQ/L 784-976 8054) POTASSIUM (test code 4.0 MEQ/L 3.5-5.4 = [...] INDICATED, ALL TESTING PERFORM [facility]. [address] [place] [id number] [place] [address] DIRECTOR: NOAH DICKENS M.D. CLIA NUMBER [id number] CAP ACCREDITATION N O. [id number] CBC W/AUTO [id number] 00:00:00 Test Item Value Reference Range Interpretation [...] NUCLEATED RBCS (test code = 0.00 K/UL 78385) CBC W/AUTO [id number] 00:00:00 Test Item Value Reference Range Interpretation [...] NUCLEATED RBCS (test code = 0.00 K/UL 94606) CBC W/AUTO [id number] 00:00:00 Test Item Value Reference Range Interpretation [...] NUCLEATED RBCS (test code = 0.00 K/UL 41068) COMPREHENSIVE METABOLIC [id number] 00:00:00 Test Item Value Reference Range Interpretation Comments GLUCOSE (test code = 2217) 108 MG/DL BUN (test code = 2208) 17 MG/DL CREATININE (test code = 2214) 0.84 MG/DL eGFR (2020 CKD-EPI) (test code 88 ML/MIN/1.73 = 67762) CALC BUN/CREAT (test code = 20 RATIO [...] code = 2219) 28 U/L COMPREHENSIVE METABOLIC [id number] 00:00:00 Test Item Value Reference Range Interpretation Comments GLUCOSE (test code = 2217) 108 MG/DL BUN (test code = 2208) 17 MG/DL CREATININE (test code = 2214) 0.84 MG/DL eGFR (2020 CKD-EPI) (test code 88 ML/MIN/1.73 = 98104) CALC BUN/CREAT (test code = 20 RATIO [...] code = 2219) 28 U/L CBC W/AUTO [id number] 00:00:00 Test Item Value Reference Range Interpretation [...] NUCLEATED RBCS (test code = 0.00 K/UL 35943) CBC W/AUTO [id number] 00:00:00 Test Item Value Reference Range Interpretation [...] NUCLEATED RBCS (test code = 0.00 K/UL 47951) CBC W/AUTO [id number] 00:00:00 Test Item Value Reference Range Interpretation [...] NUCLEATED RBCS (test code = 0.00 K/UL 35277) COMPREHENSIVE METABOLIC [id number] 00:00:00 Test Item Value Reference Range Interpretation Comments GLUCOSE (test code = 2217) 108 MG/DL BUN (test code = 2208) 17 MG/DL CREATININE (test code = 2214) 0.84 MG/DL eGFR (2020 CKD-EPI) (test code 88 ML/MIN/1.73 = 73850) CALC BUN/CREAT (test code = 20 RATIO [...] code = 2219) 28 U/L COMPREHENSIVE METABOLIC [id number] 00:00:00 Test Item Value Reference Range Interpretation Comments GLUCOSE (test code = 2217) 108 MG/DL BUN (test code = 2208) 17 MG/DL CREATININE (test code = 2214) 0.84 MG/DL eGFR (2020 CKD-EPI) (test code 88 ML/MIN/1.73 = 92187) CALC BUN/CREAT (test code = 20 RATIO [...] code = 2219) 28 U/L CBC W/AUTO [id number] 00:00:00 Test Item Value Reference Range Interpretation [...] NUCLEATED RBCS (test code = 0.00 K/UL 64359) CBC W/AUTO [id number] 00:00:00 Test Item Value Reference Range Interpretation [...] NUCLEATED RBCS (test code = 0.00 K/UL 01135) CBC W/AUTO [id number] 00:00:00 Test Item Value Reference Range Interpretation [...] NUCLEATED RBCS (test code = 0.00 K/UL 63087) COMPREHENSIVE METABOLIC [id number] 00:00:00 Test Item Value Reference Range Interpretation Comments GLUCOSE (test code = 2217) 108 MG/DL BUN (test code = 2208) 17 MG/DL CREATININE (test code = 2214) 0.84 MG/DL eGFR (2020 CKD-EPI) (test code 88 ML/MIN/1.73 = 86809) CALC BUN/CREAT (test code = 20 RATIO [...] code = 2219) 28 U/L COMPREHENSIVE METABOLIC [id number] 00:00:00 Test Item Value Reference Range Interpretation Comments GLUCOSE (test code = 2217) 108 MG/DL BUN (test code = 2208) 17 MG/DL CREATININE (test code = 2214) 0.84 MG/DL eGFR (2020 CKD-EPI) (test code 88 ML/MIN/1.73 = 28511) CALC BUN/CREAT (test code = 20 RATIO [...] code = 2219) 28 U/L CBC W/AUTO [id number] 00:00:00 Test Item Value Reference Range Interpretation [...] NUCLEATED RBCS (test code = 0.00 K/UL 87600) CBC W/AUTO [id number] 00:00:00 Test Item Value Reference Range Interpretation [...] NUCLEATED RBCS (test code = 0.00 K/UL 80831) CBC W/AUTO [id number] 00:00:00 Test Item Value Reference Range Interpretation [...] NUCLEATED RBCS (test code = 0.00 K/UL 52249) COMPREHENSIVE METABOLIC [id number] 00:00:00 Test Item Value Reference Range Interpretation Comments GLUCOSE (test code = 2217) 108 MG/DL BUN (test code = 2208) 17 MG/DL CREATININE (test code = 2214) 0.84 MG/DL eGFR (2020 CKD-EPI) (test code 88 ML/MIN/1.73 = 43525) CALC BUN/CREAT (test code = 20 RATIO [...] code = 2219) 28 U/L COMPREHENSIVE METABOLIC [id number] 00:00:00 Test Item Value Reference Range Interpretation Comments GLUCOSE (test code = 2217) 108 MG/DL BUN (test code = 2208) 17 MG/DL CREATININE (test code = 2214) 0.84 MG/DL eGFR (2020 CKD-EPI) (test code 88 ML/MIN/1.73 = 63563) CALC BUN/CREAT (test code = 20 RATIO [...] code = 2219) 28 U/L CBC W/AUTO [id number] 00:00:00 Test Item Value Reference Range Interpretation [...] NUCLEATED RBCS (test code = 0.00 K/UL 79610) CBC W/AUTO [id number] 00:00:00 Test Item Value Reference Range Interpretation [...] NUCLEATED RBCS (test code = 0.00 K/UL 82853) CBC W/AUTO [id number] 00:00:00 Test Item Value Reference Range Interpretation [...] NUCLEATED RBCS (test code = 0.00 K/UL 78713) COMPREHENSIVE METABOLIC [id number] 00:00:00 Test Item Value Reference Range Interpretation Comments GLUCOSE (test code = 2217) 108 MG/DL BUN (test code = 2208) 17 MG/DL CREATININE (test code = 2214) 0.84 MG/DL eGFR (2020 CKD-EPI) (test code 88 ML/MIN/1.73 = 65903) CALC BUN/CREAT (test code = 20 RATIO [...] code = 2219) 28 U/L COMPREHENSIVE METABOLIC [id number] 00:00:00 Test Item Value Reference Range Interpretation Comments GLUCOSE (test code = 2217) 108 MG/DL BUN (test code = 2208) 17 MG/DL CREATININE (test code = 2214) 0.84 MG/DL eGFR (2020 CKD-EPI) (test code 88 ML/MIN/1.73 = 56318) CALC BUN/CREAT (test code = 20 RATIO [...] code = 2219) 28 U/L CBC W/AUTO [id number] 00:00:00 Test Item Value Reference Range Interpretation [...] NUCLEATED RBCS (test code = 0.00 K/UL 85464) CBC W/AUTO [id number] 00:00:00 Test Item Value Reference Range Interpretation [...] NUCLEATED RBCS (test code = 0.00 K/UL 55202) CBC W/AUTO [id number] 00:00:00 Test Item Value Reference Range Interpretation [...] NUCLEATED RBCS (test code = 0.00 K/UL 35925) COMPREHENSIVE METABOLIC [id number] 00:00:00 Test Item Value Reference Range Interpretation Comments GLUCOSE (test code = 2217) 108 MG/DL BUN (test code = 2208) 17 MG/DL CREATININE (test code = 2214) 0.84 MG/DL eGFR (2020 CKD-EPI) (test code 88 ML/MIN/1.73 = 02818) CALC BUN/CREAT (test code = 20 RATIO [...] code = 2219) 28 U/L COMPREHENSIVE METABOLIC [id number] 00:00:00 Test Item Value Reference Range Interpretation Comments GLUCOSE (test code = 2217) 108 MG/DL BUN (test code = 2208) 17 MG/DL CREATININE (test code = 2214) 0.84 MG/DL eGFR (2020 CKD-EPI) (test code 88 ML/MIN/1.73 = 26940) CALC BUN/CREAT (test code = 20 RATIO [...] code = 2219) 28 U/L CBC W/AUTO [id number] 00:00:00 Test Item Value Reference Range Interpretation [...] NUCLEATED RBCS (test code = 0.00 K/UL 72479) CBC W/AUTO [id number] 00:00:00 Test Item Value Reference Range Interpretation [...] NUCLEATED RBCS (test code = 0.00 K/UL 58737) CBC W/AUTO [id number] 00:00:00 Test Item Value Reference Range Interpretation [...] NUCLEATED RBCS (test code = 0.00 K/UL 25939) COMPREHENSIVE METABOLIC [id number] 00:00:00 Test Item Value Reference Range Interpretation Comments GLUCOSE (test code = 2217) 108 MG/DL BUN (test code = 2208) 17 MG/DL CREATININE (test code = 2214) 0.84 MG/DL eGFR (2020 CKD-EPI) (test code 88 ML/MIN/1.73 = 01220) CALC BUN/CREAT (test code = 20 RATIO [...] code = 2219) 28 U/L COMPREHENSIVE METABOLIC [id number] 00:00:00 Test Item Value Reference Range Interpretation Comments GLUCOSE (test code = 2217) 108 MG/DL BUN (test code = 2208) 17 MG/DL CREATININE (test code = 2214) 0.84 MG/DL eGFR (2020 CKD-EPI) (test code 88 ML/MIN/1.73 = 00495) CALC BUN/CREAT (test code = 20 RATIO [...] code = 2219) 28 U/L CBC W/AUTO [id number] 00:00:00 Test Item Value Reference Range Interpretation [...] NUCLEATED RBCS (test code = 0.00 K/UL 19785) CBC W/AUTO [id number] 00:00:00 Test Item Value Reference Range Interpretation [...] NUCLEATED RBCS (test code = 0.00 K/UL 03244) COMPREHENSIVE METABOLIC [id number] 00:00:00 Test Item Value Reference Range Interpretation Comments GLUCOSE (test code = 2217) 108 MG/DL BUN (test code = 2208) 17 MG/DL CREATININE (test code = 2214) 0.84 MG/DL eGFR (2020 CKD-EPI) (test code 88 ML/MIN/1.73 = 63817) CALC BUN/CREAT (test code = 20 RATIO [...] code = 2219) 28 U/L CBC W/AUTO [id number] 00:00:00 Test Item Value Reference Range Interpretation [...] NUCLEATED RBCS (test code = 0.00 K/UL 19873) CBC W/AUTO [id number] 00:00:00 Test Item Value Reference Range Interpretation [...] NUCLEATED RBCS (test code = 0.00 K/UL 82507) CBC W/AUTO [id number] 00:00:00 Test Item Value Reference Range Interpretation [...] NUCLEATED RBCS (test code = 0.00 K/UL 69165) COMPREHENSIVE METABOLIC [id number] 00:00:00 Test Item Value Reference Range Interpretation Comments GLUCOSE (test code = 2217) 108 MG/DL BUN (test code = 2208) 17 MG/DL CREATININE (test code = 2214) 0.84 MG/DL eGFR (2020 CKD-EPI) (test code 88 ML/MIN/1.73 = 04766) CALC BUN/CREAT (test code = 20 RATIO [...] code = 2219) 28 U/L COMPREHENSIVE METABOLIC [id number] 00:00:00 Test Item Value Reference Range Interpretation Comments GLUCOSE (test code = 2217) 108 MG/DL BUN (test code = 2208) 17 MG/DL CREATININE (test code = 2214) 0.84 MG/DL eGFR (2020 CKD-EPI) (test code 88 ML/MIN/1.73 = 22057) CALC BUN/CREAT (test code = 20 RATIO [...] code = 2219) 28 U/L CBC W/AUTO [id number] 00:00:00 Test Item Value Reference Range Interpretation [...] NUCLEATED RBCS (test code = 0.00 K/UL 19333) CBC W/AUTO [id number] 00:00:00 Test Item Value Reference Range Interpretation [...] NUCLEATED RBCS (test code = 0.00 K/UL 22998) CBC W/AUTO [id number] 00:00:00 Test Item Value Reference Range Interpretation [...] NUCLEATED RBCS (test code = 0.00 K/UL 88873) COMPREHENSIVE METABOLIC [id number] 00:00:00 Test Item Value Reference Range Interpretation Comments GLUCOSE (test code = 2217) 108 MG/DL BUN (test code = 2208) 17 MG/DL CREATININE (test code = 2214) 0.84 MG/DL eGFR (2020 CKD-EPI) (test code 88 ML/MIN/1.73 = 75976) CALC BUN/CREAT (test code = 20 RATIO [...] code = 2219) 28 U/L COMPREHENSIVE METABOLIC [id number] 00:00:00 Test Item Value Reference Range Interpretation Comments GLUCOSE (test code = 2217) 108 MG/DL BUN (test code = 2208) 17 MG/DL CREATININE (test code = 2214) 0.84 MG/DL eGFR (2020 CKD-EPI) (test code 88 ML/MIN/1.73 = 70454) CALC BUN/CREAT (test code = 20 RATIO [...] code = 2219) 28 U/L CBC W/AUTO [id number] 00:00:00 Test Item Value Reference Range Interpretation [...] NUCLEATED RBCS (test code = 0.00 K/UL 76019) CBC W/AUTO [id number] 00:00:00 Test Item Value Reference Range Interpretation [...] NUCLEATED RBCS (test code = 0.00 K/UL 24992) CBC W/AUTO [id number] 00:00:00 Test Item Value Reference Range Interpretation [...] NUCLEATED RBCS (test code = 0.00 K/UL 34452) COMPREHENSIVE METABOLIC [id number] 00:00:00 Test Item Value Reference Range Interpretation Comments GLUCOSE (test code = 2217) 108 MG/DL BUN (test code = 2208) 17 MG/DL CREATININE (test code = 2214) 0.84 MG/DL eGFR (2020 CKD-EPI) (test code 88 ML/MIN/1.73 = 55229) CALC BUN/CREAT (test code = 20 RATIO [...] code = 2219) 28 U/L COMPREHENSIVE METABOLIC [id number] 00:00:00 Test Item Value Reference Range Interpretation Comments GLUCOSE (test code = 2217) 108 MG/DL BUN (test code = 2208) 17 MG/DL CREATININE (test code = 2214) 0.84 MG/DL eGFR (2020 CKD-EPI) (test code 88 ML/MIN/1.73 = 37971) CALC BUN/CREAT (test code = 20 RATIO [...] = 2219) 28 U/L COMP. METABOLIC PANEL (13210)[id number] 15:36:43 Test Item Value Reference Range Interpretation Comments NA (test code = 133 mmol/L 135-145 L 2745876828) K (test code = 4.8 mmol/L 3.5-5.0 8907018550) CL (test code = 96 mmol/L 98-108 L 2043494953) CO2 TOTAL (test code = 21 mmol/L 23-31 L 8972390274) AGAP (test code = 2-16 9575538892) BUN (test code = 30 mg/dL 7-23 H 8969124407) GLUCOSE (test code = 405 mg/dL 70-110 H 9682346057) CREATININE (test code = 0.74 mg/dL 0.50-1.04 3394965867) TOTAL BILI (test code = 0.6 mg/dL 0.1-1.0 0079225930) CALCIUM (test code = 9.7 mg/dL 8.6-10.6 7662536319) T PROTEIN (test code = 7.9 g/dL 6.3-8.2 5420902232) ALBUMIN (test code = 4.9 g/dL 3.5-5.0 6609535808) ALK PHOS (test code = 66 U/L 34-122 4927042285) ALTv (test code = 37 U/L 5-35 H 1742-6) AST(SGOT) (test code = 31 U/L 13-40 1424400077) eGFR (test code = mL/min/1.73m2 5723819397) CALVIN (test code = CALVIN) Association of [...] tests). Lab Interpretation Abnormal (test code = 56654-7) [facility] WITH [id number] 15:26:02 Test Item Value Reference Range Interpretation [...] (test code = 38.2 fL 39.0-49.9 L 82884-4) RDW-CV (test code = 12.9 % 12.0-15.5 788-0) PLT (test code = See_Comment [Automated 777-3) message] The sy stem which generated this result transmitted reference range : 166 - 358 10*3/ ?L. The reference r doretha was not used to interpret this result as normal/abnormal . MPV (test code = 9.8 fL 9.5-12.9 64015-0) NRBC/100 WBC (test See_Comment [Automat ed code = 6550155928) message] The system which generated this result transmitted reference range : 0.0 - 10.0 /100 WBCs. The refer ence range was not u sed to interpret th is result as normal/abnormal . NRBC x10^3 (test code <0.01 See_Comment [Auto mated = 8928232042) message] The s ystem which generated this result transmitted reference range : 10*3/?L. The reference range was not used to interpret this result as normal/abnormal . GRAN MAT (NEUT) % 50.6 % (test code = 770-8) IMM GRAN % (test code 0.80 % = 9831168084) LYMPH % (test code = 37.0 % 736-9) MONO % (test code = 8.5 % 5905-5) EOS % (test code = 2.2 % 713-8) BASO % (test code = 0.9 % 706-2) GRAN MAT x10^3(ANC) 3.86 10*3/uL 1.88-7.09 (test code = 7662208765) IMM GRAN x10^3 (test 0.06 10*3/uL 0.00-0.06 code = 4850002055) LYMPH x10^3 (test code 2.83 10*3/uL 1.32-3.29 = 731-0) MONO x10^3 (test code 0.65 10*3/uL 0.33-0.92 = 742-7) EOS x10^3 (test code = 0.17 10*3/uL 0.03-0.39 711-2) BASO x10^3 (test code 0.07 10*3/uL 0.01-0.07 = 704-7) Lab Interpretation Abnormal (test code = 28342-3) [id number] Test Item Value Reference Range Interpretation Comments POCT PREG (test code = 1605) negative On board controls acceptable with present C Line (test code = 3574) POCT PREG LOT # (test code = 3575) [id number] POCT PREG TEST DATE (test 09/07/2022 code = 3576) Lab Interpretation (test code = Normal 04888-5) [id number] Test Item Value Reference Range Interpretation Comments GLUBED (test code = GLUBED) 260 mg/dL 60-125 H [id number] 06:42:00 Test Item Value Reference Range Interpretation Comments GLUBED (test code = GLUBED) 265 mg/dL 60-125 H COVID 19 Asymptomatic IH [id number] 17:24:00 Test Item Value Reference Range Interpretation Comments COVID 19 Asymptomatic IH AG (test NEGATIVE NEGATIVE code = COVNONPUIAG) COMPREHENSIVE METABOLIC [id number] 05:38:33 Test Item Value Reference Range Interpretation Comments GLUCOSE (test code = 411 MG/DL 70-99 H 2216) BUN (test code = 24 MG/DL 6-20 H 2207) CREATININE (test 1.13 MG/DL 0.60-1.30 code = 2214) eGFR (2020 CKD-EPI) 62 ML/MIN/1.73 >60 (test code = 25273) CALC BUN/CREAT (test 21 RATIO 6-28 code = 2235) SODIUM (test code = 136 MEQ/L 045-559 1441) POTASSIUM (test code 5.0 MEQ/L 3.5-5.4 = [...] = 49 U/L 5-40 H 2218) LIPID [id number] 05:38:33 Test Item Value Reference Range Interpretation [...] MOREINFORMATION , SEE CLIENT ANNOUNCE MENT AT [email or web address] CalcLDL-C RISK RATIO LDL/HDL 2.79 RATIO <3.22 UNABLE T O CALCULATE (test code = 2238) UNLESS OT HERWISE INDICATED, ALL TESTING PERFORMED [facility] [employer] [address] [place] [address] 4 LABORATORY DIRE CTOR: NOAH TODD M.D. CLIA NUMBER [id number] [place]. [id number] HEMOGLOBIN [id number] 03:55:33 Test Item Value Reference Range Interpretation Comments HEMOGLOBIN A1c (test 11.9 % 4.2-5.6 H [employer] [employer] [facility] code = 90445) ASSOCIATION [employer] FOR HGB A1C: PREDIABETES/INC REASED [...] TESTING OR LABORATORY C ONSULTATION. COMPREHENSIVE METABOLIC [id number] 00:00:00 Test Item Value Reference Range Interpretation Comments GLUCOSE (test code = 2217) 411 MG/DL BUN (test code = 2208) 24 MG/DL CREATININE (test code = 2214) 1.13 MG/DL eGFR (2020 CKD-EPI) (test code 62 ML/MIN/1.73 = 41589) CALC BUN/CREAT (test code = 21 RATIO [...] code = 2219) 49 U/L COMPREHENSIVE METABOLIC [id number] 00:00:00 Test Item Value Reference Range Interpretation Comments GLUCOSE (test code = 7) 411 MG/DL BUN (test code = 2208) 24 MG/DL CREATININE (test code = 2214) 1.13 MG/DL eGFR (2020 CKD-EPI) (test code 62 ML/MIN/1.73 = 18784) CALC BUN/CREAT (test code = 21 RATIO [...] (test code = 2219) 49 U/L HEMOGLOBIN [id number] 00:00:00 Test Item Value Reference Range Interpretation Comments HEMOGLOBIN A1c (test code = 58464) 11.9 % HEMOGLOBIN [id number] 00:00:00 Test Item Value Reference Range Interpretation Comments HEMOGLOBIN A1c (test code = 46603) 11.9 % HEMOGLOBIN [id number] 00:00:00 Test Item Value Reference Range Interpretation Comments HEMOGLOBIN A1c (test code = 00531) 11.9 % LIPID [id number] 00:00:00 Test Item Value Reference Range Interpretation Comments CHOLESTEROL (test code = 2210) 176 MG/DL TRIGLYCERIDES (test code = 2232) 614 MG/DL HDL CHOLESTEROL (test code = 28 MG/DL 2220) CALC LDL CHOL (test code = 2237) (NOTE) MG/DL RISK RATIO LDL/HDL (test code = 2.79 RATIO 2238) LIPID [id number] 00:00:00 Test Item Value Reference Range Interpretation Comments CHOLESTEROL (test code = 2210) 176 MG/DL TRIGLYCERIDES (test code = 2232) 614 MG/DL HDL CHOLESTEROL (test code = 28 MG/DL 2220) CALC LDL CHOL (test code = 2237) (NOTE) MG/DL RISK RATIO LDL/HDL (test code = 2.79 RATIO 2238) COMPREHENSIVE METABOLIC [id number] 00:00:00 Test Item Value Reference Range Interpretation Comments GLUCOSE (test code = 2217) 411 MG/DL BUN (test code = 2208) 24 MG/DL CREATININE (test code = 2214) 1.13 MG/DL eGFR (2020 CKD-EPI) (test code 62 ML/MIN/1.73 = 42063) CALC BUN/CREAT (test code = 21 RATIO [...] code = 2219) 49 U/L COMPREHENSIVE METABOLIC [id number] 00:00:00 Test Item Value Reference Range Interpretation Comments GLUCOSE (test code = 2217) 411 MG/DL BUN (test code = 2208) 24 MG/DL CREATININE (test code = 2214) 1.13 MG/DL eGFR (2020 CKD-EPI) (test code 62 ML/MIN/1.73 = 03218) CALC BUN/CREAT (test code = 21 RATIO [...] (test code = 2219) 49 U/L HEMOGLOBIN [id number] 00:00:00 Test Item Value Reference Range Interpretation Comments HEMOGLOBIN A1c (test code = 38452) 11.9 % HEMOGLOBIN [id number] 00:00:00 Test Item Value Reference Range Interpretation Comments HEMOGLOBIN A1c (test code = 36330) 11.9 % HEMOGLOBIN [id number] 00:00:00 Test Item Value Reference Range Interpretation Comments HEMOGLOBIN A1c (test code = 74301) 11.9 % LIPID [id number] 00:00:00 Test Item Value Reference Range Interpretation Comments CHOLESTEROL (test code = 2210) 176 MG/DL TRIGLYCERIDES (test code = 2232) 614 MG/DL HDL CHOLESTEROL (test code = 28 MG/DL 2219) CALC LDL CHOL (test code = 223) (NOTE) MG/DL RISK RATIO LDL/HDL (test code = 2.79 RATIO 8) LIPID [id number] 00:00:00 Test Item Value Reference Range Interpretation Comments CHOLESTEROL (test code = 2210) 176 MG/DL TRIGLYCERIDES (test code = 2232) 614 MG/DL HDL CHOLESTEROL (test code = 28 MG/DL 2220) CALC LDL CHOL (test code = 2237) (NOTE) MG/DL RISK RATIO LDL/HDL (test code = 2.79 RATIO 2238) COMPREHENSIVE METABOLIC [id number] 00:00:00 Test Item Value Reference Range Interpretation Comments GLUCOSE (test code = 2217) 411 MG/DL BUN (test code = 2208) 24 MG/DL CREATININE (test code = 2214) 1.13 MG/DL eGFR (2020 CKD-EPI) (test code 62 ML/MIN/1.73 = 14911) CALC BUN/CREAT (test code = 21 RATIO [...] code = 2219) 49 U/L COMPREHENSIVE METABOLIC [id number] 00:00:00 Test Item Value Reference Range Interpretation Comments GLUCOSE (test code = 2217) 411 MG/DL BUN (test code = 2208) 24 MG/DL CREATININE (test code = 2214) 1.13 MG/DL eGFR (2020 CKD-EPI) (test code 62 ML/MIN/1.73 = 67101) CALC BUN/CREAT (test code = 21 RATIO [...] (test code = 2219) 49 U/L HEMOGLOBIN [id number] 00:00:00 Test Item Value Reference Range Interpretation Comments HEMOGLOBIN A1c (test code = 98983) 11.9 % HEMOGLOBIN [id number] 00:00:00 Test Item Value Reference Range Interpretation Comments HEMOGLOBIN A1c (test code = 43973) 11.9 % HEMOGLOBIN [id number] 00:00:00 Test Item Value Reference Range Interpretation Comments HEMOGLOBIN A1c (test code = 98798) 11.9 % LIPID [id number] 00:00:00 Test Item Value Reference Range Interpretation Comments CHOLESTEROL (test code = 2210) 176 MG/DL TRIGLYCERIDES (test code = 2232) 614 MG/DL HDL CHOLESTEROL (test code = 28 MG/DL 2220) CALC LDL CHOL (test code = 2237) (NOTE) MG/DL RISK RATIO LDL/HDL (test code = 2.79 RATIO 2238) LIPID [id number] 00:00:00 Test Item Value Reference Range Interpretation Comments CHOLESTEROL (test code = 2210) 176 MG/DL TRIGLYCERIDES (test code = 2232) 614 MG/DL HDL CHOLESTEROL (test code = 28 MG/DL 2220) CALC LDL CHOL (test code = 2237) (NOTE) MG/DL RISK RATIO LDL/HDL (test code = 2.79 RATIO 2238) COMPREHENSIVE METABOLIC [id number] 00:00:00 Test Item Value Reference Range Interpretation Comments GLUCOSE (test code = 2217) 411 MG/DL BUN (test code = 2208) 24 MG/DL CREATININE (test code = 2214) 1.13 MG/DL eGFR (2020 CKD-EPI) (test code 62 ML/MIN/1.73 = 59307) CALC BUN/CREAT (test code = 21 RATIO [...] code = 2219) 49 U/L COMPREHENSIVE METABOLIC [id number] 00:00:00 Test Item Value Reference Range Interpretation Comments GLUCOSE (test code = 2216) 411 MG/DL BUN (test code = 8) 24 MG/DL CREATININE (test code = 2214) 1.13 MG/DL eGFR (2020 CKD-EPI) (test code 62 ML/MIN/1.73 = 69396) CALC BUN/CREAT (test code = 21 RATIO [...] (test code = 2219) 49 U/L HEMOGLOBIN [id number] 00:00:00 Test Item Value Reference Range Interpretation Comments HEMOGLOBIN A1c (test code = 70868) 11.9 % HEMOGLOBIN [id number] 00:00:00 Test Item Value Reference Range Interpretation Comments HEMOGLOBIN A1c (test code = 61882) 11.9 % HEMOGLOBIN [id number] 00:00:00 Test Item Value Reference Range Interpretation Comments HEMOGLOBIN A1c (test code = 76815) 11.9 % LIPID [id number] 00:00:00 Test Item Value Reference Range Interpretation Comments CHOLESTEROL (test code = 2210) 176 MG/DL TRIGLYCERIDES (test code = 2232) 614 MG/DL HDL CHOLESTEROL (test code = 28 MG/DL 2220) CALC LDL CHOL (test code = 2237) (NOTE) MG/DL RISK RATIO LDL/HDL (test code = 2.79 RATIO 2238) LIPID [id number] 00:00:00 Test Item Value Reference Range Interpretation Comments CHOLESTEROL (test code = 2210) 176 MG/DL TRIGLYCERIDES (test code = 2232) 614 MG/DL HDL CHOLESTEROL (test code = 28 MG/DL 2220) CALC LDL CHOL (test code = 2237) (NOTE) MG/DL RISK RATIO LDL/HDL (test code = 2.79 RATIO 2238) COMPREHENSIVE METABOLIC [id number] 00:00:00 Test Item Value Reference Range Interpretation Comments GLUCOSE (test code = 2217) 411 MG/DL BUN (test code = 2208) 24 MG/DL CREATININE (test code = 2214) 1.13 MG/DL eGFR (2020 CKD-EPI) (test code 62 ML/MIN/1.73 = 64392) CALC BUN/CREAT (test code = 21 RATIO [...] code = 2219) 49 U/L COMPREHENSIVE METABOLIC [id number] 00:00:00 Test Item Value Reference Range Interpretation Comments GLUCOSE (test code = 2217) 411 MG/DL BUN (test code = 2208) 24 MG/DL CREATININE (test code = 2214) 1.13 MG/DL eGFR (2020 CKD-EPI) (test code 62 ML/MIN/1.73 = 77962) CALC BUN/CREAT (test code = 21 RATIO [...] (test code = 2219) 49 U/L HEMOGLOBIN [id number] 00:00:00 Test Item Value Reference Range Interpretation Comments HEMOGLOBIN A1c (test code = 90854) 11.9 % HEMOGLOBIN [id number] 00:00:00 Test Item Value Reference Range Interpretation Comments HEMOGLOBIN A1c (test code = 73345) 11.9 % HEMOGLOBIN [id number] 00:00:00 Test Item Value Reference Range Interpretation Comments HEMOGLOBIN A1c (test code = 31588) 11.9 % LIPID [id number] 00:00:00 Test Item Value Reference Range Interpretation Comments CHOLESTEROL (test code = 2210) 176 MG/DL TRIGLYCERIDES (test code = 2232) 614 MG/DL HDL CHOLESTEROL (test code = 28 MG/DL 2219) CALC LDL CHOL (test code = 2237) (NOTE) MG/DL RISK RATIO LDL/HDL (test code = 2.79 RATIO 8) LIPID [id number] 00:00:00 Test Item Value Reference Range Interpretation Comments CHOLESTEROL (test code = 2210) 176 MG/DL TRIGLYCERIDES (test code = 2232) 614 MG/DL HDL CHOLESTEROL (test code = 28 MG/DL 0) CALC LDL CHOL (test code = 2237) (NOTE) MG/DL RISK RATIO LDL/HDL (test code = 2.79 RATIO 2238) COMPREHENSIVE METABOLIC [id number] 00:00:00 Test Item Value Reference Range Interpretation Comments GLUCOSE (test code = 2217) 411 MG/DL BUN (test code = 2208) 24 MG/DL CREATININE (test code = 2214) 1.13 MG/DL eGFR (2020 CKD-EPI) (test code 62 ML/MIN/1.73 = 25680) CALC BUN/CREAT (test code = 21 RATIO [...] code = 2219) 49 U/L COMPREHENSIVE METABOLIC [id number] 00:00:00 Test Item Value Reference Range Interpretation Comments GLUCOSE (test code = 2217) 411 MG/DL BUN (test code = 2208) 24 MG/DL CREATININE (test code = 2214) 1.13 MG/DL eGFR (2020 CKD-EPI) (test code 62 ML/MIN/1.73 = 98162) CALC BUN/CREAT (test code = 21 RATIO [...] (test code = 2219) 49 U/L HEMOGLOBIN [id number] 00:00:00 Test Item Value Reference Range Interpretation Comments HEMOGLOBIN A1c (test code = 20288) 11.9 % HEMOGLOBIN [id number] 00:00:00 Test Item Value Reference Range Interpretation Comments HEMOGLOBIN A1c (test code = 19841) 11.9 % HEMOGLOBIN [id number] 00:00:00 Test Item Value Reference Range Interpretation Comments HEMOGLOBIN A1c (test code = 36688) 11.9 % LIPID [id number] 00:00:00 Test Item Value Reference Range Interpretation Comments CHOLESTEROL (test code = 2210) 176 MG/DL TRIGLYCERIDES (test code = 2232) 614 MG/DL HDL CHOLESTEROL (test code = 28 MG/DL 2220) CALC LDL CHOL (test code = 2237) (NOTE) MG/DL RISK RATIO LDL/HDL (test code = 2.79 RATIO 2238) LIPID [id number] 00:00:00 Test Item Value Reference Range Interpretation Comments CHOLESTEROL (test code = 2210) 176 MG/DL TRIGLYCERIDES (test code = 2232) 614 MG/DL HDL CHOLESTEROL (test code = 28 MG/DL 2220) CALC LDL CHOL (test code = 2237) (NOTE) MG/DL RISK RATIO LDL/HDL (test code = 2.79 RATIO 2238) COMPREHENSIVE METABOLIC [id number] 00:00:00 Test Item Value Reference Range Interpretation Comments GLUCOSE (test code = 2217) 411 MG/DL BUN (test code = 2208) 24 MG/DL CREATININE (test code = 2214) 1.13 MG/DL eGFR (2020 CKD-EPI) (test code 62 ML/MIN/1.73 = 89187) CALC BUN/CREAT (test code = 21 RATIO [...] code = 2219) 49 U/L COMPREHENSIVE METABOLIC [id number] 00:00:00 Test Item Value Reference Range Interpretation Comments GLUCOSE (test code = 7) 411 MG/DL BUN (test code = 2208) 24 MG/DL CREATININE (test code = 2214) 1.13 MG/DL eGFR (2020 CKD-EPI) (test code 62 ML/MIN/1.73 = 05344) CALC BUN/CREAT (test code = 21 RATIO [...] (test code = 2219) 49 U/L HEMOGLOBIN [id number] 00:00:00 Test Item Value Reference Range Interpretation Comments HEMOGLOBIN A1c (test code = 90438) 11.9 % HEMOGLOBIN [id number] 00:00:00 Test Item Value Reference Range Interpretation Comments HEMOGLOBIN A1c (test code = 87068) 11.9 % HEMOGLOBIN [id number] 00:00:00 Test Item Value Reference Range Interpretation Comments HEMOGLOBIN A1c (test code = 87593) 11.9 % LIPID [id number] 00:00:00 Test Item Value Reference Range Interpretation Comments CHOLESTEROL (test code = 2210) 176 MG/DL TRIGLYCERIDES (test code = 2232) 614 MG/DL HDL CHOLESTEROL (test code = 28 MG/DL 2220) CALC LDL CHOL (test code = 2237) (NOTE) MG/DL RISK RATIO LDL/HDL (test code = 2.79 RATIO 2238) LIPID [id number] 00:00:00 Test Item Value Reference Range Interpretation Comments CHOLESTEROL (test code = 2210) 176 MG/DL TRIGLYCERIDES (test code = 2232) 614 MG/DL HDL CHOLESTEROL (test code = 28 MG/DL 2220) CALC LDL CHOL (test code = 2237) (NOTE) MG/DL RISK RATIO LDL/HDL (test code = 2.79 RATIO 2238) COMPREHENSIVE METABOLIC [id number] 00:00:00 Test Item Value Reference Range Interpretation Comments GLUCOSE (test code = 2217) 411 MG/DL BUN (test code = 2208) 24 MG/DL CREATININE (test code = 2214) 1.13 MG/DL eGFR (2020 CKD-EPI) (test code 62 ML/MIN/1.73 = 05732) CALC BUN/CREAT (test code = 21 RATIO [...] (test code = 2219) 49 U/L HEMOGLOBIN [id number] 00:00:00 Test Item Value Reference Range Interpretation Comments HEMOGLOBIN A1c (test code = 58881) 11.9 % HEMOGLOBIN [id number] 00:00:00 Test Item Value Reference Range Interpretation Comments HEMOGLOBIN A1c (test code = 87816) 11.9 % LIPID [id number] 00:00:00 Test Item Value Reference Range Interpretation Comments CHOLESTEROL (test code = 2210) 176 MG/DL TRIGLYCERIDES (test code = 2232) 614 MG/DL HDL CHOLESTEROL (test code = 28 MG/DL 0) CALC LDL CHOL (test code = 2237) (NOTE) MG/DL RISK RATIO LDL/HDL (test code = 2.79 RATIO 2238) COMPREHENSIVE METABOLIC [id number] 00:00:00 Test Item Value Reference Range Interpretation Comments GLUCOSE (test code = 2217) 411 MG/DL BUN (test code = 2208) 24 MG/DL CREATININE (test code = 2214) 1.13 MG/DL eGFR (2020 CKD-EPI) (test code 62 ML/MIN/1.73 = 19581) CALC BUN/CREAT (test code = 21 RATIO [...] code = 2219) 49 U/L COMPREHENSIVE METABOLIC [id number] 00:00:00 Test Item Value Reference Range Interpretation Comments GLUCOSE (test code = 2217) 411 MG/DL BUN (test code = 2208) 24 MG/DL CREATININE (test code = 2214) 1.13 MG/DL eGFR (2020 CKD-EPI) (test code 62 ML/MIN/1.73 = 06910) CALC BUN/CREAT (test code = 21 RATIO [...] (test code = 2219) 49 U/L HEMOGLOBIN [id number] 00:00:00 Test Item Value Reference Range Interpretation Comments HEMOGLOBIN A1c (test code = 78414) 11.9 % HEMOGLOBIN [id number] 00:00:00 Test Item Value Reference Range Interpretation Comments HEMOGLOBIN A1c (test code = 72588) 11.9 % HEMOGLOBIN [id number] 00:00:00 Test Item Value Reference Range Interpretation Comments HEMOGLOBIN A1c (test code = 48339) 11.9 % LIPID [id number] 00:00:00 Test Item Value Reference Range Interpretation Comments CHOLESTEROL (test code = 2210) 176 MG/DL TRIGLYCERIDES (test code = 2232) 614 MG/DL HDL CHOLESTEROL (test code = 28 MG/DL 0) CALC LDL CHOL (test code = 2237) (NOTE) MG/DL RISK RATIO LDL/HDL (test code = 2.79 RATIO 2238) LIPID [id number] 00:00:00 Test Item Value Reference Range Interpretation Comments CHOLESTEROL (test code = 2210) 176 MG/DL TRIGLYCERIDES (test code = 2232) 614 MG/DL HDL CHOLESTEROL (test code = 28 MG/DL 2220) CALC LDL CHOL (test code = 2237) (NOTE) MG/DL RISK RATIO LDL/HDL (test code = 2.79 RATIO 2238) COMPREHENSIVE METABOLIC [id number] 00:00:00 Test Item Value Reference Range Interpretation Comments GLUCOSE (test code = 2217) 411 MG/DL BUN (test code = 2208) 24 MG/DL CREATININE (test code = 2214) 1.13 MG/DL eGFR (2020 CKD-EPI) (test code 62 ML/MIN/1.73 = 19531) CALC BUN/CREAT (test code = 21 RATIO [...] code = 2219) 49 U/L COMPREHENSIVE METABOLIC [id number] 00:00:00 Test Item Value Reference Range Interpretation Comments GLUCOSE (test code = 2217) 411 MG/DL BUN (test code = 2208) 24 MG/DL CREATININE (test code = 2214) 1.13 MG/DL eGFR (2020 CKD-EPI) (test code 62 ML/MIN/1.73 = 06446) CALC BUN/CREAT (test code = 21 RATIO [...] (test code = 2219) 49 U/L HEMOGLOBIN [id number] 00:00:00 Test Item Value Reference Range Interpretation Comments HEMOGLOBIN A1c (test code = 69834) 11.9 % HEMOGLOBIN [id number] 00:00:00 Test Item Value Reference Range Interpretation Comments HEMOGLOBIN A1c (test code = 34477) 11.9 % HEMOGLOBIN [id number] 00:00:00 Test Item Value Reference Range Interpretation Comments HEMOGLOBIN A1c (test code = 39735) 11.9 % LIPID [id number] 00:00:00 Test Item Value Reference Range Interpretation Comments CHOLESTEROL (test code = 2210) 176 MG/DL TRIGLYCERIDES (test code = 2232) 614 MG/DL HDL CHOLESTEROL (test code = 28 MG/DL 2220) CALC LDL CHOL (test code = 2237) (NOTE) MG/DL RISK RATIO LDL/HDL (test code = 2.79 RATIO 2238) LIPID [id number] 00:00:00 Test Item Value Reference Range Interpretation Comments CHOLESTEROL (test code = 2210) 176 MG/DL TRIGLYCERIDES (test code = 2232) 614 MG/DL HDL CHOLESTEROL (test code = 28 MG/DL 2220) CALC LDL CHOL (test code = 2237) (NOTE) MG/DL RISK RATIO LDL/HDL (test code = 2.79 RATIO 2238) COMPREHENSIVE METABOLIC [id number] 00:00:00 Test Item Value Reference Range Interpretation Comments GLUCOSE (test code = 2217) 411 MG/DL BUN (test code = 2208) 24 MG/DL CREATININE (test code = 2214) 1.13 MG/DL eGFR (2020 CKD-EPI) (test code 62 ML/MIN/1.73 = 30317) CALC BUN/CREAT (test code = 21 RATIO [...] code = 2219) 49 U/L COMPREHENSIVE METABOLIC [id number] 00:00:00 Test Item Value Reference Range Interpretation Comments GLUCOSE (test code = 2217) 411 MG/DL BUN (test code = 2208) 24 MG/DL CREATININE (test code = 2214) 1.13 MG/DL eGFR (2020 CKD-EPI) (test code 62 ML/MIN/1.73 = 05560) CALC BUN/CREAT (test code = 21 RATIO [...] (test code = 2219) 49 U/L HEMOGLOBIN [id number] 00:00:00 Test Item Value Reference Range Interpretation Comments HEMOGLOBIN A1c (test code = 93998) 11.9 % HEMOGLOBIN [id number] 00:00:00 Test Item Value Reference Range Interpretation Comments HEMOGLOBIN A1c (test code = 41469) 11.9 % HEMOGLOBIN [id number] 00:00:00 Test Item Value Reference Range Interpretation Comments HEMOGLOBIN A1c (test code = 92233) 11.9 % LIPID [id number] 00:00:00 Test Item Value Reference Range Interpretation Comments CHOLESTEROL (test code = 2210) 176 MG/DL TRIGLYCERIDES (test code = 2232) 614 MG/DL HDL CHOLESTEROL (test code = 28 MG/DL 2219) CALC LDL CHOL (test code = 2237) (NOTE) MG/DL RISK RATIO LDL/HDL (test code = 2.79 RATIO 8) LIPID [id number] 00:00:00 Test Item Value Reference Range Interpretation Comments CHOLESTEROL (test code = 2210) 176 MG/DL TRIGLYCERIDES (test code = 2232) 614 MG/DL HDL CHOLESTEROL (test code = 28 MG/DL 2220) CALC LDL CHOL (test code = 2237) (NOTE) MG/DL RISK RATIO LDL/HDL (test code = 2.79 RATIO 2238) CREATINE [id number] 13:35:13 Test Item Value Reference Range Interpretation Comments CK (test code = 4149926955) 71 U/L 33-194 Lab Interpretation (test code = Normal 13628-9) [facility] GLUCOSE (AUTOMATED)2021-06-18 13:07:35 Test Item Value Reference Range Interpretation Comments POCT GLU (test code = 9945026903) 351 mg/dL 70-110 H Lab Interpretation (test code = Abnormal 29697-9) [facility] GLUCOSE(AGE >30DAYS)2021-06-18 13:04:00 Test Item Value Reference Range Interpretation Comments POCT Glu (age>30days) (test code = 351 mg/dL 70-110 A 3342) Lab Interpretation (test code = Abnormal 80857-4) [facility] Metabolic Panel (98522)2021-06-18 11:14:20 Test Item Value Reference Range Interpretation Comments NA (test code = 134 mmol/L 135-145 L 9441077257) K (test code = 4.6 mmol/L 3.5-5.0 6782158463) CL (test code = 103 mmol/L 98-108 1560523557) CO2 TOTAL (test code = 18 mmol/L 23-31 L 5678729703) AGAP (test code = 2-16 1215330960) BUN (test code = 30 mg/dL 7-23 H 7670521729) GLUCOSE (test code = 390 mg/dL 70-110 H 5995855772) CREATININE (test code = 0.93 mg/dL 0.50-1.04 5591364590) TOTAL BILI (test code = 0.4 mg/dL 0.1-1.7 7523145840) CALCIUM (test code = 10.0 mg/dL 8.6-10.6 1154508813) T PROTEIN (test code = 7.6 g/dL 6.3-8.2 7022355961) ALBUMIN (test code = 4.5 g/dL 3.5-5.0 9823215970) ALK PHOS (test code = 51 U/L 34-122 1046063845) ALTv (test code = 34 U/L 5-35 1742-6) AST(SGOT) (test code = 26 U/L 13-40 0649778210) eGFR (test code = mL/min/1.73m2 6627819469) CALVIN (test code = CALVIN) Association of [...] tests). Lab Interpretation Abnormal (test code = 45718-8) [facility] [id number] 11:06:00 Test Item Value Reference Range Interpretation Comments POCT PREG (test code = 1605) neg On board controls acceptable with yes C Line (test code = 3574) POCT PREG LOT # (test code = 3575) [id number] POCT PREG TEST DATE (test 08/10/2022 code = 3576) Lab Interpretation (test code = Normal 53338-0) [facility] with [id number] 11:00:39 Test Item Value Reference Range Interpretation Comments WBC (test code = See_Comment [Automated 4390-2) message] The sy stem which generated this [...] RDW-SD (test code = 40.1 fL 39.0-49.9 21369-8) RDW-CV (test code = 13.2 % 12.0-15.5 788-0) PLT (test code = See_Comment [Automated 777-3) message] The sy stem which generated this result transmitted reference range : 166 - 358 10*3/ ?L. The reference r doretha was not used to interpret this result as normal/abnormal . MPV (test code = 9.5 fL 9.5-12.9 20257-0) NRBC/100 WBC (test See_Comment [Automat ed code = 7325692266) message] The system which generated this result transmitted reference range : 0.0 - 10.0 /100 WBCs. The refer ence range was not u sed to interpret th is result as normal/abnormal . NRBC x10^3 (test code <0.01 See_Comment [Auto mated = 8957427933) message] The s ystem which generated this result transmitted reference range : 10*3/?L. The reference range was not used to interpret this result as normal/abnormal . GRAN MAT (NEUT) % 43.7 % (test code = 770-8) IMM GRAN % (test code 0.70 % = 6300153146) LYMPH % (test code = 41.9 % 736-9) MONO % (test code = 8.8 % 5905-5) EOS % (test code = 3.6 % 713-8) BASO % (test code = 1.3 % 706-2) GRAN MAT x10^3(ANC) 2.68 10*3/uL 1.88-7.09 (test code = 0331001423) IMM GRAN x10^3 (test 0.04 10*3/uL 0.00-0.06 code = 0535863842) LYMPH x10^3 (test code 2.57 10*3/uL 1.32-3.29 = 731-0) MONO x10^3 (test code 0.54 10*3/uL 0.33-0.92 = 742-7) EOS x10^3 (test code = 0.22 10*3/uL 0.03-0.39 711-2) BASO x10^3 (test code 0.08 10*3/uL 0.01-0.07 H = 704-7) Lab Interpretation Abnormal (test code = 42604-2) [facility] [id number] [facility]:00:00 Test Item Value Reference Range Interpretation Comments ANDIE SPECIES (test code = ) NEGATIVE G. VAGINALIS (test code = 41766) NEGATIVE T. VAGINALIS (test code = 06918) NEGATIVE VAGINAL PATHOGENS DNA [id number] 00:00:00 Test Item Value Reference Range Interpretation Comments ANDIE SPECIES (test code = ) NEGATIVE G. VAGINALIS (test code = 75845) NEGATIVE T. VAGINALIS (test code = 88954) NEGATIVE VAGINAL PATHOGENS DNA [id number] 00:00:00 Test Item Value Reference Range Interpretation Comments ANDIE SPECIES (test code = ) NEGATIVE G. VAGINALIS (test code = 35064) NEGATIVE T. VAGINALIS (test code = 82088) NEGATIVE VAGINAL PATHOGENS DNA [id number] 00:00:00 Test Item Value Reference Range Interpretation Comments ANDIE SPECIES (test code = 38231) NEGATIVE G. VAGINALIS (test code = 68425) NEGATIVE T. VAGINALIS (test code = 63283) NEGATIVE VAGINAL PATHOGENS DNA [id number] 00:00:00 Test Item Value Reference Range Interpretation Comments ANDIE SPECIES (test code = 72464) NEGATIVE G. VAGINALIS (test code = 04227) NEGATIVE T. VAGINALIS (test code = 97359) NEGATIVE VAGINAL PATHOGENS DNA [id number] 00:00:00 Test Item Value Reference Range Interpretation Comments ANDIE SPECIES (test code = 32135) NEGATIVE G. VAGINALIS (test code = 62403) NEGATIVE T. VAGINALIS (test code = 67639) NEGATIVE VAGINAL PATHOGENS DNA [id number] 00:00:00 Test Item Value Reference Range Interpretation Comments ANDIE SPECIES (test code = 07677) NEGATIVE G. VAGINALIS (test code = 13573) NEGATIVE T. VAGINALIS (test code = 02725) NEGATIVE VAGINAL PATHOGENS DNA [id number] 00:00:00 Test Item Value Reference Range Interpretation Comments ANDIE SPECIES (test code = 37498) NEGATIVE G. VAGINALIS (test code = 69775) NEGATIVE T. VAGINALIS (test code = 97230) NEGATIVE VAGINAL PATHOGENS DNA [id number] 00:00:00 Test Item Value Reference Range Interpretation Comments ANDIE SPECIES (test code = 18364) NEGATIVE G. VAGINALIS (test code = 72307) NEGATIVE T. VAGINALIS (test code = 99997) NEGATIVE VAGINAL PATHOGENS DNA [id number] 00:00:00 Test Item Value Reference Range Interpretation Comments ANDIE SPECIES (test code = 65057) NEGATIVE G. VAGINALIS (test code = 19258) NEGATIVE T. VAGINALIS (test code = 78940) NEGATIVE VAGINAL PATHOGENS DNA [id number] 00:00:00 Test Item Value Reference Range Interpretation Comments ANDIE SPECIES (test code = 66085) NEGATIVE G. VAGINALIS (test code = 77238) NEGATIVE T. VAGINALIS (test code = 11223) NEGATIVE VAGINAL PATHOGENS DNA [id number] 00:00:00 Test Item Value Reference Range Interpretation Comments ANDIE SPECIES (test code = 02697) NEGATIVE G. VAGINALIS (test code = 73259) NEGATIVE T. VAGINALIS (test code = 81714) NEGATIVE VAGINAL PATHOGENS DNA [id number] 00:00:00 Test Item Value Reference Range Interpretation Comments ANDIE SPECIES (test code = 85809) NEGATIVE G. VAGINALIS (test code = 61035) NEGATIVE T. VAGINALIS (test code = 59088) NEGATIVE VAGINAL PATHOGENS DNA [id number] 00:00:00 Test Item Value Reference Range Interpretation Comments ANDIE SPECIES (test code = 62252) NEGATIVE G. VAGINALIS (test code = 07165) NEGATIVE T. VAGINALIS (test code = 46016) NEGATIVE VAGINAL PATHOGENS DNA [id number] 00:00:00 Test Item Value Reference Range Interpretation Comments ANDIE SPECIES (test code = 53479) NEGATIVE G. VAGINALIS (test code = 85007) NEGATIVE T. VAGINALIS (test code = 98046) NEGATIVE VAGINAL PATHOGENS DNA [id number] 00:00:00 Test Item Value Reference Range Interpretation Comments ANDIE SPECIES (test code = 49892) NEGATIVE G. VAGINALIS (test code = 68016) NEGATIVE T. VAGINALIS (test code = 60548) NEGATIVE VAGINAL PATHOGENS DNA [id number] 00:00:00 Test Item Value Reference Range Interpretation Comments ANDIE SPECIES (test code = 00850) NEGATIVE G. VAGINALIS (test code = 26389) NEGATIVE T. VAGINALIS (test code = 27885) NEGATIVE VAGINAL PATHOGENS DNA [id number] 00:00:00 Test Item Value Reference Range Interpretation Comments ANDIE SPECIES (test code = 81202) NEGATIVE G. VAGINALIS (test code = 60236) NEGATIVE T. VAGINALIS (test code = 59781) NEGATIVE VAGINAL PATHOGENS DNA [id number] 00:00:00 Test Item Value Reference Range Interpretation Comments ANDIE SPECIES (test code = 89292) NEGATIVE G. VAGINALIS (test code = 93229) NEGATIVE T. VAGINALIS (test code = 25577) NEGATIVE VAGINAL PATHOGENS DNA [id number] 00:00:00 Test Item Value Reference Range Interpretation Comments ANDIE SPECIES (test code = 58059) NEGATIVE G. VAGINALIS (test code = 15462) NEGATIVE T. VAGINALIS (test code = 58544) NEGATIVE VAGINAL PATHOGENS DNA [id number] 00:00:00 Test Item Value Reference Range Interpretation Comments ANDIE SPECIES (test code = 82005) NEGATIVE G. VAGINALIS (test code = 72462) NEGATIVE T. VAGINALIS (test code = 43329) NEGATIVE SARS-CoV-2 (COVID-19) by RT-PCR (HIGH RISK)2021-02-26 00:00:00 Test Item Value Reference Range Interpretation Comments SARS-CoV-2 INTERPRETATION (test NEGATIVE code = 34115) SOURCE (test code = 73234) NOT SPECIFIED SARS-CoV-2 (COVID-19) by RT-PCR (HIGH RISK)2021-02-26 00:00:00 Test Item Value Reference Range Interpretation Comments SARS-CoV-2 INTERPRETATION (test NEGATIVE code = 63499) SOURCE (test code = 97849) NOT SPECIFIED SARS-CoV-2 (COVID-19) by RT-PCR (HIGH RISK)2021-02-26 00:00:00 Test Item Value Reference Range Interpretation Comments SARS-CoV-2 INTERPRETATION (test NEGATIVE code = 42614) SOURCE (test code = 29607) NOT SPECIFIED SARS-CoV-2 (COVID-19) by RT-PCR (HIGH RISK)2021-02-26 00:00:00 Test Item Value Reference Range Interpretation Comments SARS-CoV-2 INTERPRETATION (test NEGATIVE code = 67531) SOURCE (test code = 09950) NOT SPECIFIED SARS-CoV-2 (COVID-19) by RT-PCR (HIGH RISK)2021-02-26 00:00:00 Test Item Value Reference Range Interpretation Comments SARS-CoV-2 INTERPRETATION (test NEGATIVE code = 04542) SOURCE (test code = 46597) NOT SPECIFIED SARS-CoV-2 (COVID-19) by RT-PCR (HIGH RISK)2021-02-26 00:00:00 Test Item Value Reference Range Interpretation Comments SARS-CoV-2 INTERPRETATION (test NEGATIVE code = 06355) SOURCE (test code = 27074) NOT SPECIFIED SARS-CoV-2 (COVID-19) by RT-PCR (HIGH RISK)2021-02-26 00:00:00 Test Item Value Reference Range Interpretation Comments SARS-CoV-2 INTERPRETATION (test NEGATIVE code = 53174) SOURCE (test code = 36883) NOT SPECIFIED SARS-CoV-2 (COVID-19) by RT-PCR (HIGH RISK)2021-02-26 00:00:00 Test Item Value Reference Range Interpretation Comments SARS-CoV-2 INTERPRETATION (test NEGATIVE code = 78349) SOURCE (test code = 10168) NOT SPECIFIED SARS-CoV-2 (COVID-19) by RT-PCR (HIGH RISK)2021-02-26 00:00:00 Test Item Value Reference Range Interpretation Comments SARS-CoV-2 INTERPRETATION (test NEGATIVE code = 48727) SOURCE (test code = 52920) NOT SPECIFIED SARS-CoV-2 (COVID-19) by RT-PCR (HIGH RISK)2021-02-26 00:00:00 Test Item Value Reference Range Interpretation Comments SARS-CoV-2 INTERPRETATION (test NEGATIVE code = 05025) SOURCE (test code = 81371) NOT SPECIFIED SARS-CoV-2 (COVID-19) by RT-PCR (HIGH RISK)2021-02-26 00:00:00 Test Item Value Reference Range Interpretation Comments SARS-CoV-2 INTERPRETATION (test NEGATIVE code = 41843) SOURCE (test code = 61181) NOT SPECIFIED SARS-CoV-2 (COVID-19) by RT-PCR (HIGH RISK)2021-02-26 00:00:00 Test Item Value Reference Range Interpretation Comments SARS-CoV-2 INTERPRETATION (test NEGATIVE code = 36623) SOURCE (test code = 33324) NOT SPECIFIED SARS-CoV-2 (COVID-19) by RT-PCR (HIGH RISK)2021-02-26 00:00:00 Test Item Value Reference Range Interpretation Comments SARS-CoV-2 INTERPRETATION (test NEGATIVE code = 33671) SOURCE (test code = 23077) NOT SPECIFIED SARS-CoV-2 (COVID-19) by RT-PCR (HIGH RISK)2021-02-26 00:00:00 Test Item Value Reference Range Interpretation Comments SARS-CoV-2 INTERPRETATION (test NEGATIVE code = 73796) SOURCE (test code = 29892) NOT SPECIFIED SARS-CoV-2 (COVID-19) by RT-PCR (HIGH RISK)2021-02-26 00:00:00 Test Item Value Reference Range Interpretation Comments SARS-CoV-2 INTERPRETATION (test NEGATIVE code = 36676) SOURCE (test code = 27528) NOT SPECIFIED SARS-CoV-2 (COVID-19) by RT-PCR (HIGH RISK)2021-02-26 00:00:00 Test Item Value Reference Range Interpretation Comments SARS-CoV-2 INTERPRETATION (test NEGATIVE code = 48488) SOURCE (test code = 38119) NOT SPECIFIED SARS-CoV-2 (COVID-19) by RT-PCR (HIGH RISK)2021-02-26 00:00:00 Test Item Value Reference Range Interpretation Comments SARS-CoV-2 INTERPRETATION (test NEGATIVE code = 40650) SOURCE (test code = 38704) NOT SPECIFIED SARS-CoV-2 (COVID-19) by RT-PCR (HIGH RISK)2021-02-26 00:00:00 Test Item Value Reference Range Interpretation Comments SARS-CoV-2 INTERPRETATION (test NEGATIVE code = 47393) SOURCE (test code = 40091) NOT SPECIFIED SARS-CoV-2 (COVID-19) by RT-PCR (HIGH RISK)2021-02-26 00:00:00 Test Item Value Reference Range Interpretation Comments SARS-CoV-2 INTERPRETATION (test NEGATIVE code = 39405) SOURCE (test code = 48128) NOT SPECIFIED SARS-CoV-2 (COVID-19) by RT-PCR (HIGH RISK)2021-02-26 00:00:00 Test Item Value Reference Range Interpretation Comments SARS-CoV-2 INTERPRETATION (test NEGATIVE code = 30265) SOURCE (test code = 69433) NOT SPECIFIED SARS-CoV-2 (COVID-19) by RT-PCR (HIGH RISK)2021-02-26 00:00:00 Test Item Value Reference Range Interpretation Comments SARS-CoV-2 INTERPRETATION (test NEGATIVE code = 32106) SOURCE (test code = 16210) NOT SPECIFIED CULTURE, URINE [ADDED]2021-02-13 00:00:00 Test Item Value Reference Range Interpretation Comments CULTURE, URINE (test SPECIMEN NUMBER: code = 75195) [id number] CULTURE, URINE [ADDED]2021-02-13 00:00:00 Test Item Value Reference Range Interpretation Comments CULTURE, URINE (test SPECIMEN NUMBER: code = 13950) [id number] CULTURE, URINE [ADDED]2021-02-13 00:00:00 Test Item Value Reference Range Interpretation Comments CULTURE, URINE (test SPECIMEN NUMBER: code = 68790) [id number] CULTURE, URINE [ADDED]2021-02-13 00:00:00 Test Item Value Reference Range Interpretation Comments CULTURE, URINE (test SPECIMEN NUMBER: code = 51517) [id number] CULTURE, URINE [ADDED]2021-02-13 00:00:00 Test Item Value Reference Range Interpretation Comments CULTURE, URINE (test SPECIMEN NUMBER: code = 38577) [id number] CULTURE, URINE [ADDED]2021-02-13 00:00:00 Test Item Value Reference Range Interpretation Comments CULTURE, URINE (test SPECIMEN NUMBER: code = 05929) [id number] CULTURE, URINE [ADDED]2021-02-13 00:00:00 Test Item Value Reference Range Interpretation Comments CULTURE, URINE (test SPECIMEN NUMBER: code = 08970) [id number] CULTURE, URINE [ADDED]2021-02-13 00:00:00 Test Item Value Reference Range Interpretation Comments CULTURE, URINE (test SPECIMEN NUMBER: code = 50681) [id number] CULTURE, URINE [ADDED]2021-02-13 00:00:00 Test Item Value Reference Range Interpretation Comments CULTURE, URINE (test SPECIMEN NUMBER: code = 32520) [id number] CULTURE, URINE [ADDED]2021-02-13 00:00:00 Test Item Value Reference Range Interpretation Comments CULTURE, URINE (test SPECIMEN NUMBER: code = 98026) [id number] CULTURE, URINE [ADDED]2021-02-13 00:00:00 Test Item Value Reference Range Interpretation Comments CULTURE, URINE (test SPECIMEN NUMBER: code = 05218) [id number] CULTURE, URINE [ADDED]2021-02-13 00:00:00 Test Item Value Reference Range Interpretation Comments CULTURE, URINE (test SPECIMEN NUMBER: code = 93777) [id number] CULTURE, URINE [ADDED]2021-02-13 00:00:00 Test Item Value Reference Range Interpretation Comments CULTURE, URINE (test SPECIMEN NUMBER: code = 42228) [id number] CULTURE, URINE [ADDED]2021-02-13 00:00:00 Test Item Value Reference Range Interpretation Comments CULTURE, URINE (test SPECIMEN NUMBER: code = 59046) [id number] CULTURE, URINE [ADDED]2021-02-13 00:00:00 Test Item Value Reference Range Interpretation Comments CULTURE, URINE (test SPECIMEN NUMBER: code = 17369) [id number] CULTURE, URINE [ADDED]2021-02-13 00:00:00 Test Item Value Reference Range Interpretation Comments CULTURE, URINE (test SPECIMEN NUMBER: code = 81385) [id number] CULTURE, URINE [ADDED]2021-02-13 00:00:00 Test Item Value Reference Range Interpretation Comments CULTURE, URINE (test SPECIMEN NUMBER: code = 62099) [id number] CULTURE, URINE [ADDED]2021-02-13 00:00:00 Test Item Value Reference Range Interpretation Comments CULTURE, URINE (test SPECIMEN NUMBER: code = 97029) [id number] CULTURE, URINE [ADDED]2021-02-13 00:00:00 Test Item Value Reference Range Interpretation Comments CULTURE, URINE (test SPECIMEN NUMBER: code = 88080) [id number] CULTURE, URINE [ADDED]2021-02-13 00:00:00 Test Item Value Reference Range Interpretation Comments CULTURE, URINE (test SPECIMEN NUMBER: code = 70535) [id number] CULTURE, URINE [ADDED]2021-02-13 00:00:00 Test Item Value Reference Range Interpretation Comments CULTURE, URINE (test SPECIMEN NUMBER: code = 42500) [id number] VAGINAL PATHOGENS DNA [id number] 00:00:00 Test Item Value Reference Range Interpretation Comments ANDIE SPECIES (test code = 28978) NEGATIVE G. VAGINALIS (test code = 83262) POSITIVE T. VAGINALIS (test code = 97963) NEGATIVE VAGINAL PATHOGENS DNA [id number] 00:00:00 Test Item Value Reference Range Interpretation Comments ANDIE SPECIES (test code = 70363) NEGATIVE G. VAGINALIS (test code = 44622) POSITIVE T. VAGINALIS (test code = 59600) NEGATIVE VAGINAL PATHOGENS DNA [id number] 00:00:00 Test Item Value Reference Range Interpretation Comments ANDIE SPECIES (test code = 39411) NEGATIVE G. VAGINALIS (test code = 34849) POSITIVE T. VAGINALIS (test code = 62552) NEGATIVE VAGINAL PATHOGENS DNA [id number] 00:00:00 Test Item Value Reference Range Interpretation Comments ANDIE SPECIES (test code = 75572) NEGATIVE G. VAGINALIS (test code = 12842) POSITIVE T. VAGINALIS (test code = 34835) NEGATIVE VAGINAL PATHOGENS DNA [id number] 00:00:00 Test Item Value Reference Range Interpretation Comments ANDIE SPECIES (test code = 42593) NEGATIVE G. VAGINALIS (test code = 03217) POSITIVE T. VAGINALIS (test code = 20110) NEGATIVE VAGINAL PATHOGENS DNA [id number] 00:00:00 Test Item Value Reference Range Interpretation Comments ANDIE SPECIES (test code = 83840) NEGATIVE G. VAGINALIS (test code = 49087) POSITIVE T. VAGINALIS (test code = 97883) NEGATIVE VAGINAL PATHOGENS DNA [id number] 00:00:00 Test Item Value Reference Range Interpretation Comments ANDIE SPECIES (test code = 28855) NEGATIVE G. VAGINALIS (test code = 03421) POSITIVE T. VAGINALIS (test code = 43639) NEGATIVE VAGINAL PATHOGENS DNA [id number] 00:00:00 Test Item Value Reference Range Interpretation Comments ANDIE SPECIES (test code = 69998) NEGATIVE G. VAGINALIS (test code = 33659) POSITIVE T. VAGINALIS (test code = 68216) NEGATIVE VAGINAL PATHOGENS DNA [id number] 00:00:00 Test Item Value Reference Range Interpretation Comments ANDIE SPECIES (test code = 96372) NEGATIVE G. VAGINALIS (test code = 58620) POSITIVE T. VAGINALIS (test code = 91741) NEGATIVE VAGINAL PATHOGENS DNA [id number] 00:00:00 Test Item Value Reference Range Interpretation Comments ANDIE SPECIES (test code = 62694) NEGATIVE G. VAGINALIS (test code = 62984) POSITIVE T. VAGINALIS (test code = 40077) NEGATIVE VAGINAL PATHOGENS DNA [id number] 00:00:00 Test Item Value Reference Range Interpretation Comments ANDIE SPECIES (test code = 05361) NEGATIVE G. VAGINALIS (test code = 73737) POSITIVE T. VAGINALIS (test code = 97164) NEGATIVE VAGINAL PATHOGENS DNA [id number] 00:00:00 Test Item Value Reference Range Interpretation Comments ANDIE SPECIES (test code = 38156) NEGATIVE G. VAGINALIS (test code = 47249) POSITIVE T. VAGINALIS (test code = 92039) NEGATIVE VAGINAL PATHOGENS DNA [id number] 00:00:00 Test Item Value Reference Range Interpretation Comments ANDIE SPECIES (test code = 02001) NEGATIVE G. VAGINALIS (test code = 65686) POSITIVE T. VAGINALIS (test code = 13441) NEGATIVE VAGINAL PATHOGENS DNA [id number] 00:00:00 Test Item Value Reference Range Interpretation Comments ANDIE SPECIES (test code = 33106) NEGATIVE G. VAGINALIS (test code = 87439) POSITIVE T. VAGINALIS (test code = 04997) NEGATIVE VAGINAL PATHOGENS DNA [id number] 00:00:00 Test Item Value Reference Range Interpretation Comments ANDIE SPECIES (test code = 83952) NEGATIVE G. VAGINALIS (test code = 90045) POSITIVE T. VAGINALIS (test code = 03305) NEGATIVE VAGINAL PATHOGENS DNA [id number] 00:00:00 Test Item Value Reference Range Interpretation Comments ANDIE SPECIES (test code = 96236) NEGATIVE G. VAGINALIS (test code = 38212) POSITIVE T. VAGINALIS (test code = 65035) NEGATIVE VAGINAL PATHOGENS DNA [id number] 00:00:00 Test Item Value Reference Range Interpretation Comments ANDIE SPECIES (test code = 16887) NEGATIVE G. VAGINALIS (test code = 35204) POSITIVE T. VAGINALIS (test code = 63456) NEGATIVE VAGINAL PATHOGENS DNA [id number] 00:00:00 Test Item Value Reference Range Interpretation Comments ANDIE SPECIES (test code = 96576) NEGATIVE G. VAGINALIS (test code = 17052) POSITIVE T. VAGINALIS (test code = 06923) NEGATIVE VAGINAL PATHOGENS DNA [id number] 00:00:00 Test Item Value Reference Range Interpretation Comments ANDIE SPECIES (test code = 12187) NEGATIVE G. VAGINALIS (test code = 35981) POSITIVE T. VAGINALIS (test code = 66263) NEGATIVE VAGINAL PATHOGENS DNA [id number] 00:00:00 Test Item Value Reference Range Interpretation Comments ANDIE SPECIES (test code = 43321) NEGATIVE G. VAGINALIS (test code = 08266) POSITIVE T. VAGINALIS (test code = 29585) NEGATIVE VAGINAL PATHOGENS DNA [id number] 00:00:00 Test Item Value Reference Range Interpretation Comments ANDIE SPECIES (test code = 46118) NEGATIVE G. VAGINALIS (test code = 64208) POSITIVE T. VAGINALIS (test code = 62329) NEGATIVE BLOOD GROUP (ABO) AND RH [id number] 00:00:00 Test Item Value Reference Range Interpretation Comments BLOOD TYPE AND RH (test code = A POSITIVE 3901) BLOOD GROUP (ABO) AND RH [id number] 00:00:00 Test Item Value Reference Range Interpretation Comments BLOOD TYPE AND RH (test code = A POSITIVE 3901) BLOOD GROUP (ABO) AND RH [id number] 00:00:00 Test Item Value Reference Range Interpretation Comments BLOOD TYPE AND RH (test code = A POSITIVE 3901) HEMOGLOBIN [id number] 00:00:00 Test Item Value Reference Range Interpretation Comments HEMOGLOBIN A1c (test code = 03925) 11.8 % HEMOGLOBIN [id number] 00:00:00 Test Item Value Reference Range Interpretation Comments HEMOGLOBIN A1c (test code = 07453) 11.8 % HEMOGLOBIN [id number] 00:00:00 Test Item Value Reference Range Interpretation Comments HEMOGLOBIN A1c (test code = 44833) 11.8 % BLOOD GROUP (ABO) AND RH [id number] 00:00:00 Test Item Value Reference Range Interpretation Comments BLOOD TYPE AND RH (test code = A POSITIVE 3901) BLOOD GROUP (ABO) AND RH [id number] 00:00:00 Test Item Value Reference Range Interpretation Comments BLOOD TYPE AND RH (test code = A POSITIVE 3901) BLOOD GROUP (ABO) AND RH [id number] 00:00:00 Test Item Value Reference Range Interpretation Comments BLOOD TYPE AND RH (test code = A POSITIVE 3901) HEMOGLOBIN [id number] 00:00:00 Test Item Value Reference Range Interpretation Comments HEMOGLOBIN A1c (test code = 82949) 11.8 % HEMOGLOBIN [id number] 00:00:00 Test Item Value Reference Range Interpretation Comments HEMOGLOBIN A1c (test code = 46261) 11.8 % HEMOGLOBIN [id number] 00:00:00 Test Item Value Reference Range Interpretation Comments HEMOGLOBIN A1c (test code = 42930) 11.8 % BLOOD GROUP (ABO) AND RH [id number] 00:00:00 Test Item Value Reference Range Interpretation Comments BLOOD TYPE AND RH (test code = A POSITIVE 3901) BLOOD GROUP (ABO) AND RH [id number] 00:00:00 Test Item Value Reference Range Interpretation Comments BLOOD TYPE AND RH (test code = A POSITIVE 3901) BLOOD GROUP (ABO) AND RH [id number] 00:00:00 Test Item Value Reference Range Interpretation Comments BLOOD TYPE AND RH (test code = A POSITIVE 3901) HEMOGLOBIN [id number] 00:00:00 Test Item Value Reference Range Interpretation Comments HEMOGLOBIN A1c (test code = 50551) 11.8 % HEMOGLOBIN [id number] 00:00:00 Test Item Value Reference Range Interpretation Comments HEMOGLOBIN A1c (test code = 70150) 11.8 % HEMOGLOBIN [id number] 00:00:00 Test Item Value Reference Range Interpretation Comments HEMOGLOBIN A1c (test code = 59520) 11.8 % BLOOD GROUP (ABO) AND RH [id number] 00:00:00 Test Item Value Reference Range Interpretation Comments BLOOD TYPE AND RH (test code = A POSITIVE 3901) BLOOD GROUP (ABO) AND RH [id number] 00:00:00 Test Item Value Reference Range Interpretation Comments BLOOD TYPE AND RH (test code = A POSITIVE 3901) BLOOD GROUP (ABO) AND RH [id number] 00:00:00 Test Item Value Reference Range Interpretation Comments BLOOD TYPE AND RH (test code = A POSITIVE 3901) HEMOGLOBIN [id number] 00:00:00 Test Item Value Reference Range Interpretation Comments HEMOGLOBIN A1c (test code = 41765) 11.8 % HEMOGLOBIN [id number] 00:00:00 Test Item Value Reference Range Interpretation Comments HEMOGLOBIN A1c (test code = 07725) 11.8 % HEMOGLOBIN [id number] 00:00:00 Test Item Value Reference Range Interpretation Comments HEMOGLOBIN A1c (test code = 93103) 11.8 % BLOOD GROUP (ABO) AND RH [id number] 00:00:00 Test Item Value Reference Range Interpretation Comments BLOOD TYPE AND RH (test code = A POSITIVE 3901) BLOOD GROUP (ABO) AND RH [id number] 00:00:00 Test Item Value Reference Range Interpretation Comments BLOOD TYPE AND RH (test code = A POSITIVE 3901) BLOOD GROUP (ABO) AND RH [id number] 00:00:00 Test Item Value Reference Range Interpretation Comments BLOOD TYPE AND RH (test code = A POSITIVE 3901) HEMOGLOBIN [id number] 00:00:00 Test Item Value Reference Range Interpretation Comments HEMOGLOBIN A1c (test code = 78220) 11.8 % HEMOGLOBIN [id number] 00:00:00 Test Item Value Reference Range Interpretation Comments HEMOGLOBIN A1c (test code = 25393) 11.8 % HEMOGLOBIN [id number] 00:00:00 Test Item Value Reference Range Interpretation Comments HEMOGLOBIN A1c (test code = 84751) 11.8 % BLOOD GROUP (ABO) AND RH [id number] 00:00:00 Test Item Value Reference Range Interpretation Comments BLOOD TYPE AND RH (test code = A POSITIVE 3901) BLOOD GROUP (ABO) AND RH [id number] 00:00:00 Test Item Value Reference Range Interpretation Comments BLOOD TYPE AND RH (test code = A POSITIVE 3901) BLOOD GROUP (ABO) AND RH [id number] 00:00:00 Test Item Value Reference Range Interpretation Comments BLOOD TYPE AND RH (test code = A POSITIVE 3901) HEMOGLOBIN [id number] 00:00:00 Test Item Value Reference Range Interpretation Comments HEMOGLOBIN A1c (test code = 05472) 11.8 % HEMOGLOBIN [id number] 00:00:00 Test Item Value Reference Range Interpretation Comments HEMOGLOBIN A1c (test code = 55853) 11.8 % HEMOGLOBIN [id number] 00:00:00 Test Item Value Reference Range Interpretation Comments HEMOGLOBIN A1c (test code = 19437) 11.8 % BLOOD GROUP (ABO) AND RH [id number] 00:00:00 Test Item Value Reference Range Interpretation Comments BLOOD TYPE AND RH (test code = A POSITIVE 3901) BLOOD GROUP (ABO) AND RH [id number] 00:00:00 Test Item Value Reference Range Interpretation Comments BLOOD TYPE AND RH (test code = A POSITIVE 3901) BLOOD GROUP (ABO) AND RH [id number] 00:00:00 Test Item Value Reference Range Interpretation Comments BLOOD TYPE AND RH (test code = A POSITIVE 3901) HEMOGLOBIN [id number] 00:00:00 Test Item Value Reference Range Interpretation Comments HEMOGLOBIN A1c (test code = 30443) 11.8 % BLOOD GROUP (ABO) AND RH [id number] 00:00:00 Test Item Value Reference Range Interpretation Comments BLOOD TYPE AND RH (test code = A POSITIVE 3901) HEMOGLOBIN [id number] 00:00:00 Test Item Value Reference Range Interpretation Comments HEMOGLOBIN A1c (test code = 93145) 11.8 % HEMOGLOBIN [id number] 00:00:00 Test Item Value Reference Range Interpretation Comments HEMOGLOBIN A1c (test code = 07880) 11.8 % BLOOD GROUP (ABO) AND RH [id number] 00:00:00 Test Item Value Reference Range Interpretation Comments BLOOD TYPE AND RH (test code = A POSITIVE 3901) HEMOGLOBIN [id number] 00:00:00 Test Item Value Reference Range Interpretation Comments HEMOGLOBIN A1c (test code = 25044) 11.8 % HEMOGLOBIN [id number] 00:00:00 Test Item Value Reference Range Interpretation Comments HEMOGLOBIN A1c (test code = 75950) 11.8 % BLOOD GROUP (ABO) AND RH [id number] 00:00:00 Test Item Value Reference Range Interpretation Comments BLOOD TYPE AND RH (test code = A POSITIVE 3901) BLOOD GROUP (ABO) AND RH [id number] 00:00:00 Test Item Value Reference Range Interpretation Comments BLOOD TYPE AND RH (test code = A POSITIVE 3901) BLOOD GROUP (ABO) AND RH [id number] 00:00:00 Test Item Value Reference Range Interpretation Comments BLOOD TYPE AND RH (test code = A POSITIVE 3901) HEMOGLOBIN [id number] 00:00:00 Test Item Value Reference Range Interpretation Comments HEMOGLOBIN A1c (test code = 80562) 11.8 % HEMOGLOBIN [id number] 00:00:00 Test Item Value Reference Range Interpretation Comments HEMOGLOBIN A1c (test code = 17142) 11.8 % HEMOGLOBIN [id number] 00:00:00 Test Item Value Reference Range Interpretation Comments HEMOGLOBIN A1c (test code = 36821) 11.8 % BLOOD GROUP (ABO) AND RH [id number] 00:00:00 Test Item Value Reference Range Interpretation Comments BLOOD TYPE AND RH (test code = A POSITIVE 3901) BLOOD GROUP (ABO) AND RH [id number] 00:00:00 Test Item Value Reference Range Interpretation Comments BLOOD TYPE AND RH (test code = A POSITIVE 3901) BLOOD GROUP (ABO) AND RH [id number] 00:00:00 Test Item Value Reference Range Interpretation Comments BLOOD TYPE AND RH (test code = A POSITIVE 3901) HEMOGLOBIN [id number] 00:00:00 Test Item Value Reference Range Interpretation Comments HEMOGLOBIN A1c (test code = 81748) 11.8 % HEMOGLOBIN [id number] 00:00:00 Test Item Value Reference Range Interpretation Comments HEMOGLOBIN A1c (test code = 77380) 11.8 % HEMOGLOBIN [id number] 00:00:00 Test Item Value Reference Range Interpretation Comments HEMOGLOBIN A1c (test code = 00956) 11.8 % BLOOD GROUP (ABO) AND RH [id number] 00:00:00 Test Item Value Reference Range Interpretation Comments BLOOD TYPE AND RH (test code = A POSITIVE 3901) BLOOD GROUP (ABO) AND RH [id number] 00:00:00 Test Item Value Reference Range Interpretation Comments BLOOD TYPE AND RH (test code = A POSITIVE 3901) BLOOD GROUP (ABO) AND RH [id number] 00:00:00 Test Item Value Reference Range Interpretation Comments BLOOD TYPE AND RH (test code = A POSITIVE 3901) HEMOGLOBIN [id number] 00:00:00 Test Item Value Reference Range Interpretation Comments HEMOGLOBIN A1c (test code = 70869) 11.8 % HEMOGLOBIN [id number] 00:00:00 Test Item Value Reference Range Interpretation Comments HEMOGLOBIN A1c (test code = 16780) 11.8 % HEMOGLOBIN [id number] 00:00:00 Test Item Value Reference Range Interpretation Comments HEMOGLOBIN A1c (test code = 11535) 11.8 % COMPREHENSIVE METABOLIC [id number] 00:00:00 Test Item Value Reference Range Interpretation Comments GLUCOSE (test code = 2217) 277 MG/DL BUN (test code = 2208) 26 MG/DL CREATININE (test code = 2214) 1.04 MG/DL eGFR AMER. (test code 77 ML/MIN/1.73 = 76886) eGFR NON- AMER. (test 66 ML/MIN/1.73 code = 86721) CALC BUN/CREAT (test code = 25 RATIO [...] code = 2219) 51 U/L COMPREHENSIVE METABOLIC [id number] 00:00:00 Test Item Value Reference Range Interpretation Comments GLUCOSE (test code = 2217) 277 MG/DL BUN (test code = 2208) 26 MG/DL CREATININE (test code = 2214) 1.04 MG/DL eGFR AMER. (test code 77 ML/MIN/1.73 = 92582) eGFR NON- AMER. (test 66 ML/MIN/1.73 code = 18962) CALC BUN/CREAT (test code = 25 RATIO [...] (test code = 2219) 51 U/L CULTURE, [id number] 00:00:00 Test Item Value Reference Range Interpretation Comments CULTURE, URINE (test SPECIMEN NUMBER: code = 86698) [id number] CULTURE, [id number] 00:00:00 Test Item Value Reference Range Interpretation Comments CULTURE, URINE (test SPECIMEN NUMBER: code = 73807) [id number] COMPREHENSIVE METABOLIC [id number] 00:00:00 Test Item Value Reference Range Interpretation Comments GLUCOSE (test code = 2217) 277 MG/DL BUN (test code = 2208) 26 MG/DL CREATININE (test code = 2214) 1.04 MG/DL eGFR AMER. (test code 77 ML/MIN/1.73 = 74237) eGFR NON- AMER. (test 66 ML/MIN/1.73 code = 62391) CALC BUN/CREAT (test code = 25 RATIO [...] code = 2219) 51 U/L COMPREHENSIVE METABOLIC [id number] 00:00:00 Test Item Value Reference Range Interpretation Comments GLUCOSE (test code = 2217) 277 MG/DL BUN (test code = 2208) 26 MG/DL CREATININE (test code = 2214) 1.04 MG/DL eGFR AMER. (test code 77 ML/MIN/1.73 = 02871) eGFR NON- AMER. (test 66 ML/MIN/1.73 code = 26482) CALC BUN/CREAT (test code = 25 RATIO [...] (test code = 2219) 51 U/L CULTURE, [id number] 00:00:00 Test Item Value Reference Range Interpretation Comments CULTURE, URINE (test SPECIMEN NUMBER: code = 57852) [id number] CULTURE, [id number] 00:00:00 Test Item Value Reference Range Interpretation Comments CULTURE, URINE (test SPECIMEN NUMBER: code = 07260) [id number] COMPREHENSIVE METABOLIC [id number] 00:00:00 Test Item Value Reference Range Interpretation Comments GLUCOSE (test code = 2217) 277 MG/DL BUN (test code = 2208) 26 MG/DL CREATININE (test code = 2214) 1.04 MG/DL eGFR AMER. (test code 77 ML/MIN/1.73 = 74584) eGFR NON- AMER. (test 66 ML/MIN/1.73 code = 29321) CALC BUN/CREAT (test code = 25 RATIO [...] code = 2219) 51 U/L COMPREHENSIVE METABOLIC [id number] 00:00:00 Test Item Value Reference Range Interpretation Comments GLUCOSE (test code = 2217) 277 MG/DL BUN (test code = 2208) 26 MG/DL CREATININE (test code = 2214) 1.04 MG/DL eGFR AMER. (test code 77 ML/MIN/1.73 = 52244) eGFR NON- AMER. (test 66 ML/MIN/1.73 code = 04958) CALC BUN/CREAT (test code = 25 RATIO [...] (test code = 2219) 51 U/L CULTURE, [id number] 00:00:00 Test Item Value Reference Range Interpretation Comments CULTURE, URINE (test SPECIMEN NUMBER: code = 51902) [id number] CULTURE, [id number] 00:00:00 Test Item Value Reference Range Interpretation Comments CULTURE, URINE (test SPECIMEN NUMBER: code = 53654) [id number] COMPREHENSIVE METABOLIC [id number] 00:00:00 Test Item Value Reference Range Interpretation Comments GLUCOSE (test code = 2217) 277 MG/DL BUN (test code = 2208) 26 MG/DL CREATININE (test code = 2214) 1.04 MG/DL eGFR AMER. (test code 77 ML/MIN/1.73 = 11428) eGFR NON- AMER. (test 66 ML/MIN/1.73 code = 67876) CALC BUN/CREAT (test code = 25 RATIO [...] code = 2219) 51 U/L COMPREHENSIVE METABOLIC [id number] 00:00:00 Test Item Value Reference Range Interpretation Comments GLUCOSE (test code = 2217) 277 MG/DL BUN (test code = 2208) 26 MG/DL CREATININE (test code = 2214) 1.04 MG/DL eGFR AMER. (test code 77 ML/MIN/1.73 = 47083) eGFR NON- AMER. (test 66 ML/MIN/1.73 code = 90137) CALC BUN/CREAT (test code = 25 RATIO [...] (test code = 2219) 51 U/L CULTURE, [id number] 00:00:00 Test Item Value Reference Range Interpretation Comments CULTURE, URINE (test SPECIMEN NUMBER: code = 14891) [id number] CULTURE, [id number] 00:00:00 Test Item Value Reference Range Interpretation Comments CULTURE, URINE (test SPECIMEN NUMBER: code = 98818) [id number] COMPREHENSIVE METABOLIC [id number] 00:00:00 Test Item Value Reference Range Interpretation Comments GLUCOSE (test code = 2217) 277 MG/DL BUN (test code = 2208) 26 MG/DL CREATININE (test code = 2214) 1.04 MG/DL eGFR AMER. (test code 77 ML/MIN/1.73 = 52818) eGFR NON- AMER. (test 66 ML/MIN/1.73 code = 18121) CALC BUN/CREAT (test code = 25 RATIO [...] code = 2219) 51 U/L COMPREHENSIVE METABOLIC [id number] 00:00:00 Test Item Value Reference Range Interpretation Comments GLUCOSE (test code = 2217) 277 MG/DL BUN (test code = 2208) 26 MG/DL CREATININE (test code = 2214) 1.04 MG/DL eGFR AMER. (test code 77 ML/MIN/1.73 = 26497) eGFR NON- AMER. (test 66 ML/MIN/1.73 code = 67000) CALC BUN/CREAT (test code = 25 RATIO [...] (test code = 2219) 51 U/L CULTURE, [id number] 00:00:00 Test Item Value Reference Range Interpretation Comments CULTURE, URINE (test SPECIMEN NUMBER: code = 31131) [id number] CULTURE, [id number] 00:00:00 Test Item Value Reference Range Interpretation Comments CULTURE, URINE (test SPECIMEN NUMBER: code = 20137) [id number] COMPREHENSIVE METABOLIC [id number] 00:00:00 Test Item Value Reference Range Interpretation Comments GLUCOSE (test code = 2217) 277 MG/DL BUN (test code = 2208) 26 MG/DL CREATININE (test code = 2214) 1.04 MG/DL eGFR AMER. (test code 77 ML/MIN/1.73 = 50293) eGFR NON- AMER. (test 66 ML/MIN/1.73 code = 55418) CALC BUN/CREAT (test code = 25 RATIO [...] code = 2219) 51 U/L COMPREHENSIVE METABOLIC [id number] 00:00:00 Test Item Value Reference Range Interpretation Comments GLUCOSE (test code = 2217) 277 MG/DL BUN (test code = 2208) 26 MG/DL CREATININE (test code = 2214) 1.04 MG/DL eGFR AMER. (test code 77 ML/MIN/1.73 = 59580) eGFR NON- AMER. (test 66 ML/MIN/1.73 code = 87374) CALC BUN/CREAT (test code = 25 RATIO [...] (test code = 2219) 51 U/L CULTURE, [id number] 00:00:00 Test Item Value Reference Range Interpretation Comments CULTURE, URINE (test SPECIMEN NUMBER: code = 17414) [id number] CULTURE, [id number] 00:00:00 Test Item Value Reference Range Interpretation Comments CULTURE, URINE (test SPECIMEN NUMBER: code = 07223) [id number] COMPREHENSIVE METABOLIC [id number] 00:00:00 Test Item Value Reference Range Interpretation Comments GLUCOSE (test code = 2217) 277 MG/DL BUN (test code = 2208) 26 MG/DL CREATININE (test code = 2214) 1.04 MG/DL eGFR AMER. (test code 77 ML/MIN/1.73 = 76494) eGFR NON- AMER. (test 66 ML/MIN/1.73 code = 10030) CALC BUN/CREAT (test code = 25 RATIO [...] code = 2219) 51 U/L COMPREHENSIVE METABOLIC [id number] 00:00:00 Test Item Value Reference Range Interpretation Comments GLUCOSE (test code = 2217) 277 MG/DL BUN (test code = 2208) 26 MG/DL CREATININE (test code = 2214) 1.04 MG/DL eGFR AMER. (test code 77 ML/MIN/1.73 = 47218) eGFR NON- AMER. (test 66 ML/MIN/1.73 code = 62834) CALC BUN/CREAT (test code = 25 RATIO [...] (test code = 2219) 51 U/L CULTURE, [id number] 00:00:00 Test Item Value Reference Range Interpretation Comments CULTURE, URINE (test SPECIMEN NUMBER: code = 28043) [id number] CULTURE, [id number] 00:00:00 Test Item Value Reference Range Interpretation Comments CULTURE, URINE (test SPECIMEN NUMBER: code = 73863) [id number] COMPREHENSIVE METABOLIC [id number] 00:00:00 Test Item Value Reference Range Interpretation Comments GLUCOSE (test code = 2217) 277 MG/DL BUN (test code = 2208) 26 MG/DL CREATININE (test code = 2214) 1.04 MG/DL eGFR AMER. (test code 77 ML/MIN/1.73 = 60785) eGFR NON- AMER. (test 66 ML/MIN/1.73 code = 49375) CALC BUN/CREAT (test code = 25 RATIO [...] (test code = 2219) 51 U/L CULTURE, [id number] 00:00:00 Test Item Value Reference Range Interpretation Comments CULTURE, URINE (test SPECIMEN NUMBER: code = 32215) [id number] COMPREHENSIVE METABOLIC [id number] 00:00:00 Test Item Value Reference Range Interpretation Comments GLUCOSE (test code = 2217) 277 MG/DL BUN (test code = 2208) 26 MG/DL CREATININE (test code = 2214) 1.04 MG/DL eGFR AMER. (test code 77 ML/MIN/1.73 = 08295) eGFR NON- AMER. (test 66 ML/MIN/1.73 code = 12110) CALC BUN/CREAT (test code = 25 RATIO [...] code = 2219) 51 U/L COMPREHENSIVE METABOLIC [id number] 00:00:00 Test Item Value Reference Range Interpretation Comments GLUCOSE (test code = 2217) 277 MG/DL BUN (test code = 2208) 26 MG/DL CREATININE (test code = 2214) 1.04 MG/DL eGFR AMER. (test code 77 ML/MIN/1.73 = 03692) eGFR NON- AMER. (test 66 ML/MIN/1.73 code = 43424) CALC BUN/CREAT (test code = 25 RATIO [...] (test code = 2219) 51 U/L CULTURE, [id number] 00:00:00 Test Item Value Reference Range Interpretation Comments CULTURE, URINE (test SPECIMEN NUMBER: code = 12576) [id number] CULTURE, [id number] 00:00:00 Test Item Value Reference Range Interpretation Comments CULTURE, URINE (test SPECIMEN NUMBER: code = 45638) [id number] COMPREHENSIVE METABOLIC [id number] 00:00:00 Test Item Value Reference Range Interpretation Comments GLUCOSE (test code = 2217) 277 MG/DL BUN (test code = 2208) 26 MG/DL CREATININE (test code = 2214) 1.04 MG/DL eGFR AMER. (test code 77 ML/MIN/1.73 = 55593) eGFR NON- AMER. (test 66 ML/MIN/1.73 code = 08431) CALC BUN/CREAT (test code = 25 RATIO [...] code = 2219) 51 U/L COMPREHENSIVE METABOLIC [id number] 00:00:00 Test Item Value Reference Range Interpretation Comments GLUCOSE (test code = 2217) 277 MG/DL BUN (test code = 2208) 26 MG/DL CREATININE (test code = 2214) 1.04 MG/DL eGFR AMER. (test code 77 ML/MIN/1.73 = 21443) eGFR NON- AMER. (test 66 ML/MIN/1.73 code = 13882) CALC BUN/CREAT (test code = 25 RATIO 2235) SODIUM (test code = 2231) 137 MEQ/L POTASSIUM (test code = 2228) 4.3 MEQ/L CHLORIDE (test code = 2215) 96 MEQ/L CARBON DIOXIDE (test code = 24 MEQ/L 2206) CALCIUM (test code = 2209) 10.8 MG/DL PROTEIN, TOTAL (test code = 8.5 G/DL 9) ALBUMIN (test code = 2201) 5.3 G/DL CALC GLOBULIN (test code = 3.2 G/DL 2240) CALC A/G RATIO (test code = 1.7 RATIO 2234) BILIRUBIN, TOTAL (test code = 0.3 MG/DL 2207) ALKALINE PHOSPHATASE (test 44 U/L code = 2204) AST (test code = 2218) 32 U/L ALT (test code = 2219) 51 U/L CULTURE, [id number] 00:00:00 Test Item Value Reference Range Interpretation Comments CULTURE, URINE (test SPECIMEN NUMBER: code = 48082) [id number] CULTURE, [id number] 00:00:00 Test Item Value Reference Range Interpretation Comments CULTURE, URINE (test SPECIMEN NUMBER: code = 22819) [id number] COMPREHENSIVE METABOLIC [id number] 00:00:00 Test Item Value Reference Range Interpretation Comments GLUCOSE (test code = 2217) 277 MG/DL BUN (test code = 2208) 26 MG/DL CREATININE (test code = 2214) 1.04 MG/DL eGFR AMER. (test code 77 ML/MIN/1.73 = 64781) eGFR NON- AMER. (test 66 ML/MIN/1.73 code = 05599) CALC BUN/CREAT (test code = 25 RATIO [...] code = 2219) 51 U/L COMPREHENSIVE METABOLIC [id number] 00:00:00 Test Item Value Reference Range Interpretation Comments GLUCOSE (test code = 2217) 277 MG/DL BUN (test code = 2208) 26 MG/DL CREATININE (test code = 2214) 1.04 MG/DL eGFR AMER. (test code 77 ML/MIN/1.73 = 19384) eGFR NON- AMER. (test 66 ML/MIN/1.73 code = 02285) CALC BUN/CREAT (test code = 25 RATIO [...] (test code = 2219) 51 U/L CULTURE, [id number] 00:00:00 Test Item Value Reference Range Interpretation Comments CULTURE, URINE (test SPECIMEN NUMBER: code = 56191) [id number] CULTURE, [id number] 00:00:00 Test Item Value Reference Range Interpretation Comments CULTURE, URINE (test SPECIMEN NUMBER: code = 32735) [id number] CBC W/AUTO [id number] 00:00:00 Test Item Value Reference Range Interpretation [...] NUCLEATED RBCS (test code = 0.00 K/UL 09805) CBC W/AUTO [id number] 00:00:00 Test Item Value Reference Range Interpretation [...] NUCLEATED RBCS (test code = 0.00 K/UL 48497) CBC W/AUTO [id number] 00:00:00 Test Item Value Reference Range Interpretation [...] NUCLEATED RBCS (test code = 0.00 K/UL 96225) CBC W/AUTO [id number] 00:00:00 Test Item Value Reference Range Interpretation [...] NUCLEATED RBCS (test code = 0.00 K/UL 52316) CBC W/AUTO [id number] 00:00:00 Test Item Value Reference Range Interpretation [...] NUCLEATED RBCS (test code = 0.00 K/UL 33633) CBC W/AUTO [id number] 00:00:00 Test Item Value Reference Range Interpretation [...] NUCLEATED RBCS (test code = 0.00 K/UL 32826) CBC W/AUTO [id number] 00:00:00 Test Item Value Reference Range Interpretation [...] NUCLEATED RBCS (test code = 0.00 K/UL 13083) CBC W/AUTO [id number] 00:00:00 Test Item Value Reference Range Interpretation [...] NUCLEATED RBCS (test code = 0.00 K/UL 40296) CBC W/AUTO [id number] 00:00:00 Test Item Value Reference Range Interpretation [...] NUCLEATED RBCS (test code = 0.00 K/UL 33011) CBC W/AUTO [id number] 00:00:00 Test Item Value Reference Range Interpretation [...] NUCLEATED RBCS (test code = 0.00 K/UL 93493) CBC W/AUTO [id number] 00:00:00 Test Item Value Reference Range Interpretation [...] NUCLEATED RBCS (test code = 0.00 K/UL 77534) CBC W/AUTO [id number] 00:00:00 Test Item Value Reference Range Interpretation [...] NUCLEATED RBCS (test code = 0.00 K/UL 00974) CBC W/AUTO [id number] 00:00:00 Test Item Value Reference Range Interpretation [...] NUCLEATED RBCS (test code = 0.00 K/UL 84407) CBC W/AUTO [id number] 00:00:00 Test Item Value Reference Range Interpretation [...] NUCLEATED RBCS (test code = 0.00 K/UL 24586) CBC W/AUTO [id number] 00:00:00 Test Item Value Reference Range Interpretation [...] NUCLEATED RBCS (test code = 0.00 K/UL 87420) CBC W/AUTO [id number] 00:00:00 Test Item Value Reference Range Interpretation [...] NUCLEATED RBCS (test code = 0.00 K/UL 80640) CBC W/AUTO [id number] 00:00:00 Test Item Value Reference Range Interpretation [...] NUCLEATED RBCS (test code = 0.00 K/UL 39037) CBC W/AUTO [id number] 00:00:00 Test Item Value Reference Range Interpretation [...] NUCLEATED RBCS (test code = 0.00 K/UL 95190) CBC W/AUTO [id number] 00:00:00 Test Item Value Reference Range Interpretation [...] NUCLEATED RBCS (test code = 0.00 K/UL 09386) CBC W/AUTO [id number] 00:00:00 Test Item Value Reference Range Interpretation [...] NUCLEATED RBCS (test code = 0.00 K/UL 09207) CBC W/AUTO [id number] 00:00:00 Test Item Value Reference Range Interpretation [...] NUCLEATED RBCS (test code = 0.00 K/UL 74426) CBC W/AUTO [id number] 00:00:00 Test Item Value Reference Range Interpretation [...] NUCLEATED RBCS (test code = 0.00 K/UL 75247) CBC W/AUTO [id number] 00:00:00 Test Item Value Reference Range Interpretation [...] NUCLEATED RBCS (test code = 0.00 K/UL 16217) CBC W/AUTO [id number] 00:00:00 Test Item Value Reference Range Interpretation [...] NUCLEATED RBCS (test code = 0.00 K/UL 85819) CBC W/AUTO [id number] 00:00:00 Test Item Value Reference Range Interpretation [...] NUCLEATED RBCS (test code = 0.00 K/UL 00085) CBC W/AUTO [id number] 00:00:00 Test Item Value Reference Range Interpretation [...] NUCLEATED RBCS (test code = 0.00 K/UL 68608) CBC W/AUTO [id number] 00:00:00 Test Item Value Reference Range Interpretation [...] NUCLEATED RBCS (test code = 0.00 K/UL 16955) CBC W/AUTO [id number] 00:00:00 Test Item Value Reference Range Interpretation [...] NUCLEATED RBCS (test code = 0.00 K/UL 10759) CBC W/AUTO [id number] 00:00:00 Test Item Value Reference Range Interpretation [...] NUCLEATED RBCS (test code = 0.00 K/UL 54529) CBC W/AUTO [id number] 00:00:00 Test Item Value Reference Range Interpretation [...] NUCLEATED RBCS (test code = 0.00 K/UL 55348) CBC W/AUTO [id number] 00:00:00 Test Item Value Reference Range Interpretation [...] NUCLEATED RBCS (test code = 0.00 K/UL 89346) CBC W/AUTO [id number] 00:00:00 Test Item Value Reference Range Interpretation [...] NUCLEATED RBCS (test code = 0.00 K/UL 37613) VAGINAL PATHOGENS DNA [id number] 00:00:00 Test Item Value Reference Range Interpretation Comments ANDIE SPECIES (test code = ) NEGATIVE G. VAGINALIS (test code = ) NEGATIVE T. VAGINALIS (test code = ) NEGATIVE VAGINAL PATHOGENS DNA [id number] 00:00:00 Test Item Value Reference Range Interpretation Comments ANDIE SPECIES (test code = 99663) NEGATIVE G. VAGINALIS (test code = 82344) NEGATIVE T. VAGINALIS (test code = 60564) NEGATIVE VAGINAL PATHOGENS DNA [id number] 00:00:00 Test Item Value Reference Range Interpretation Comments ANDIE SPECIES (test code = 69743) NEGATIVE G. VAGINALIS (test code = 02065) NEGATIVE T. VAGINALIS (test code = 61584) NEGATIVE VAGINAL PATHOGENS DNA [id number] 00:00:00 Test Item Value Reference Range Interpretation Comments ANDIE SPECIES (test code = 04798) NEGATIVE G. VAGINALIS (test code = 27035) NEGATIVE T. VAGINALIS (test code = 95886) NEGATIVE VAGINAL PATHOGENS DNA [id number] 00:00:00 Test Item Value Reference Range Interpretation Comments ANDIE SPECIES (test code = 77998) NEGATIVE G. VAGINALIS (test code = 65542) NEGATIVE T. VAGINALIS (test code = 71364) NEGATIVE VAGINAL PATHOGENS DNA [id number] 00:00:00 Test Item Value Reference Range Interpretation Comments ANDIE SPECIES (test code = 78697) NEGATIVE G. VAGINALIS (test code = 36662) NEGATIVE T. VAGINALIS (test code = 12285) NEGATIVE VAGINAL PATHOGENS DNA [id number] 00:00:00 Test Item Value Reference Range Interpretation Comments ANDIE SPECIES (test code = 38407) NEGATIVE G. VAGINALIS (test code = 07773) NEGATIVE T. VAGINALIS (test code = 27712) NEGATIVE VAGINAL PATHOGENS DNA [id number] 00:00:00 Test Item Value Reference Range Interpretation Comments ANDIE SPECIES (test code = 39077) NEGATIVE G. VAGINALIS (test code = 16341) NEGATIVE T. VAGINALIS (test code = 32422) NEGATIVE VAGINAL PATHOGENS DNA [id number] 00:00:00 Test Item Value Reference Range Interpretation Comments ANDIE SPECIES (test code = 03072) NEGATIVE G. VAGINALIS (test code = 27112) NEGATIVE T. VAGINALIS (test code = 29235) NEGATIVE VAGINAL PATHOGENS DNA [id number] 00:00:00 Test Item Value Reference Range Interpretation Comments ANDIE SPECIES (test code = 35812) NEGATIVE G. VAGINALIS (test code = 34509) NEGATIVE T. VAGINALIS (test code = 41963) NEGATIVE VAGINAL PATHOGENS DNA [id number] 00:00:00 Test Item Value Reference Range Interpretation Comments ANDIE SPECIES (test code = 77623) NEGATIVE G. VAGINALIS (test code = 48373) NEGATIVE T. VAGINALIS (test code = 27575) NEGATIVE VAGINAL PATHOGENS DNA [id number] 00:00:00 Test Item Value Reference Range Interpretation Comments ANDIE SPECIES (test code = 84902) NEGATIVE G. VAGINALIS (test code = 78587) NEGATIVE T. VAGINALIS (test code = 72305) NEGATIVE VAGINAL PATHOGENS DNA [id number] 00:00:00 Test Item Value Reference Range Interpretation Comments ANDIE SPECIES (test code = 26705) NEGATIVE G. VAGINALIS (test code = 76310) NEGATIVE T. VAGINALIS (test code = 95281) NEGATIVE VAGINAL PATHOGENS DNA [id number] 00:00:00 Test Item Value Reference Range Interpretation Comments ANDIE SPECIES (test code = 28800) NEGATIVE G. VAGINALIS (test code = 88216) NEGATIVE T. VAGINALIS (test code = 95150) NEGATIVE VAGINAL PATHOGENS DNA [id number] 00:00:00 Test Item Value Reference Range Interpretation Comments ANDIE SPECIES (test code = 73191) NEGATIVE G. VAGINALIS (test code = 58308) NEGATIVE T. VAGINALIS (test code = 12133) NEGATIVE VAGINAL PATHOGENS DNA [id number] 00:00:00 Test Item Value Reference Range Interpretation Comments ANDIE SPECIES (test code = 22019) NEGATIVE G. VAGINALIS (test code = 25439) NEGATIVE T. VAGINALIS (test code = 92272) NEGATIVE VAGINAL PATHOGENS DNA [id number] 00:00:00 Test Item Value Reference Range Interpretation Comments ANDIE SPECIES (test code = 80822) NEGATIVE G. VAGINALIS (test code = 11536) NEGATIVE T. VAGINALIS (test code = 66164) NEGATIVE VAGINAL PATHOGENS DNA [id number] 00:00:00 Test Item Value Reference Range Interpretation Comments ANDIE SPECIES (test code = 12523) NEGATIVE G. VAGINALIS (test code = 65536) NEGATIVE T. VAGINALIS (test code = 44597) NEGATIVE VAGINAL PATHOGENS DNA [id number] 00:00:00 Test Item Value Reference Range Interpretation Comments ANDIE SPECIES (test code = 36584) NEGATIVE G. VAGINALIS (test code = 63609) NEGATIVE T. VAGINALIS (test code = 45157) NEGATIVE VAGINAL PATHOGENS DNA [id number] 00:00:00 Test Item Value Reference Range Interpretation Comments ANDIE SPECIES (test code = ) NEGATIVE G. VAGINALIS (test code = 48133) NEGATIVE T. VAGINALIS (test code = 32349) NEGATIVE VAGINAL PATHOGENS DNA [id number] 00:00:00 Test Item Value Reference Range Interpretation Comments ANDIE SPECIES (test code = ) NEGATIVE G. VAGINALIS (test code = 61338) NEGATIVE T. VAGINALIS (test code = 99206) NEGATIVE HEMOGLOBIN [id number] 00:00:00 Test Item Value Reference Range Interpretation Comments HEMOGLOBIN A1c (test code = 77366) 11.4 % HEMOGLOBIN [id number] 00:00:00 Test Item Value Reference Range Interpretation Comments HEMOGLOBIN A1c (test code = 43040) 11.4 % HEMOGLOBIN [id number] 00:00:00 Test Item Value Reference Range Interpretation Comments HEMOGLOBIN A1c (test code = 22063) 11.4 % LIPID [id number] 00:00:00 Test Item Value Reference Range Interpretation Comments CHOLESTEROL (test code = 2210) 162 MG/DL TRIGLYCERIDES (test code = 2232) 387 MG/DL HDL CHOLESTEROL (test code = 2220) 30 MG/DL CALC LDL CHOL (test code = 2237) 80 MG/DL RISK RATIO LDL/HDL (test code = 2.67 RATIO 2238) LIPID [id number] 00:00:00 Test Item Value Reference Range Interpretation Comments CHOLESTEROL (test code = 2210) 162 MG/DL TRIGLYCERIDES (test code = 2232) 387 MG/DL HDL CHOLESTEROL (test code = 2220) 30 MG/DL CALC LDL CHOL (test code = 2237) 80 MG/DL RISK RATIO LDL/HDL (test code = 2.67 RATIO 2238) COMPREHENSIVE METABOLIC [id number] 00:00:00 Test Item Value Reference Range Interpretation Comments GLUCOSE (test code = 2217) 236 MG/DL BUN (test code = 2208) 14 MG/DL CREATININE (test code = 2214) 0.71 MG/DL eGFR AMER. (test code 122 ML/MIN/1.73 = 59389) eGFR NON- AMER. (test 105 ML/MIN/1.73 code = 66675) CALC BUN/CREAT (test code = 20 RATIO [...] code = 2219) 69 U/L COMPREHENSIVE METABOLIC [id number] 00:00:00 Test Item Value Reference Range Interpretation Comments GLUCOSE (test code = 2217) 236 MG/DL BUN (test code = 2208) 14 MG/DL CREATININE (test code = 2214) 0.71 MG/DL eGFR AMER. (test code 122 ML/MIN/1.73 = 52890) eGFR NON- AMER. (test 105 ML/MIN/1.73 code = 57568) CALC BUN/CREAT (test code = 20 RATIO [...] (test code = 2219) 69 U/L HEMOGLOBIN [id number] 00:00:00 Test Item Value Reference Range Interpretation Comments HEMOGLOBIN A1c (test code = 18681) 11.4 % HEMOGLOBIN [id number] 00:00:00 Test Item Value Reference Range Interpretation Comments HEMOGLOBIN A1c (test code = 83067) 11.4 % HEMOGLOBIN [id number] 00:00:00 Test Item Value Reference Range Interpretation Comments HEMOGLOBIN A1c (test code = 12676) 11.4 % LIPID [id number] 00:00:00 Test Item Value Reference Range Interpretation Comments CHOLESTEROL (test code = 2210) 162 MG/DL TRIGLYCERIDES (test code = 2232) 387 MG/DL HDL CHOLESTEROL (test code = 2220) 30 MG/DL CALC LDL CHOL (test code = 2237) 80 MG/DL RISK RATIO LDL/HDL (test code = 2.67 RATIO 2238) LIPID [id number] 00:00:00 Test Item Value Reference Range Interpretation Comments CHOLESTEROL (test code = 2210) 162 MG/DL TRIGLYCERIDES (test code = 2232) 387 MG/DL HDL CHOLESTEROL (test code = 2220) 30 MG/DL CALC LDL CHOL (test code = 2237) 80 MG/DL RISK RATIO LDL/HDL (test code = 2.67 RATIO 2238) COMPREHENSIVE METABOLIC [id number] 00:00:00 Test Item Value Reference Range Interpretation Comments GLUCOSE (test code = 2217) 236 MG/DL BUN (test code = 2208) 14 MG/DL CREATININE (test code = 2214) 0.71 MG/DL eGFR AMER. (test code 122 ML/MIN/1.73 = 69209) eGFR NON- AMER. (test 105 ML/MIN/1.73 code = 81439) CALC BUN/CREAT (test code = 20 RATIO [...] code = 2219) 69 U/L COMPREHENSIVE METABOLIC [id number] 00:00:00 Test Item Value Reference Range Interpretation Comments GLUCOSE (test code = 2217) 236 MG/DL BUN (test code = 2208) 14 MG/DL CREATININE (test code = 2214) 0.71 MG/DL eGFR AMER. (test code 122 ML/MIN/1.73 = 00797) eGFR NON- AMER. (test 105 ML/MIN/1.73 code = 37460) CALC BUN/CREAT (test code = 20 RATIO [...] (test code = 2219) 69 U/L HEMOGLOBIN [id number] 00:00:00 Test Item Value Reference Range Interpretation Comments HEMOGLOBIN A1c (test code = 79507) 11.4 % HEMOGLOBIN [id number] 00:00:00 Test Item Value Reference Range Interpretation Comments HEMOGLOBIN A1c (test code = 43879) 11.4 % HEMOGLOBIN [id number] 00:00:00 Test Item Value Reference Range Interpretation Comments HEMOGLOBIN A1c (test code = 48819) 11.4 % LIPID [id number] 00:00:00 Test Item Value Reference Range Interpretation Comments CHOLESTEROL (test code = 2210) 162 MG/DL TRIGLYCERIDES (test code = 2232) 387 MG/DL HDL CHOLESTEROL (test code = 2220) 30 MG/DL CALC LDL CHOL (test code = 2237) 80 MG/DL RISK RATIO LDL/HDL (test code = 2.67 RATIO 2238) LIPID [id number] 00:00:00 Test Item Value Reference Range Interpretation Comments CHOLESTEROL (test code = 2210) 162 MG/DL TRIGLYCERIDES (test code = 2232) 387 MG/DL HDL CHOLESTEROL (test code = 2220) 30 MG/DL CALC LDL CHOL (test code = 2237) 80 MG/DL RISK RATIO LDL/HDL (test code = 2.67 RATIO 2238) COMPREHENSIVE METABOLIC [id number] 00:00:00 Test Item Value Reference Range Interpretation Comments GLUCOSE (test code = 2217) 236 MG/DL BUN (test code = 2208) 14 MG/DL CREATININE (test code = 2214) 0.71 MG/DL eGFR AMER. (test code 122 ML/MIN/1.73 = 22808) eGFR NON- AMER. (test 105 ML/MIN/1.73 code = 73324) CALC BUN/CREAT (test code = 20 RATIO [...] code = 2219) 69 U/L COMPREHENSIVE METABOLIC [id number] 00:00:00 Test Item Value Reference Range Interpretation Comments GLUCOSE (test code = 2217) 236 MG/DL BUN (test code = 2208) 14 MG/DL CREATININE (test code = 2214) 0.71 MG/DL eGFR AMER. (test code 122 ML/MIN/1.73 = 47519) eGFR NON- AMER. (test 105 ML/MIN/1.73 code = 33760) CALC BUN/CREAT (test code = 20 RATIO [...] (test code = 2219) 69 U/L HEMOGLOBIN [id number] 00:00:00 Test Item Value Reference Range Interpretation Comments HEMOGLOBIN A1c (test code = 20450) 11.4 % HEMOGLOBIN [id number] 00:00:00 Test Item Value Reference Range Interpretation Comments HEMOGLOBIN A1c (test code = 73407) 11.4 % HEMOGLOBIN [id number] 00:00:00 Test Item Value Reference Range Interpretation Comments HEMOGLOBIN A1c (test code = 03808) 11.4 % LIPID [id number] 00:00:00 Test Item Value Reference Range Interpretation Comments CHOLESTEROL (test code = 2210) 162 MG/DL TRIGLYCERIDES (test code = 2232) 387 MG/DL HDL CHOLESTEROL (test code = 2220) 30 MG/DL CALC LDL CHOL (test code = 2237) 80 MG/DL RISK RATIO LDL/HDL (test code = 2.67 RATIO 2238) LIPID [id number] 00:00:00 Test Item Value Reference Range Interpretation Comments CHOLESTEROL (test code = 2210) 162 MG/DL TRIGLYCERIDES (test code = 2232) 387 MG/DL HDL CHOLESTEROL (test code = 2220) 30 MG/DL CALC LDL CHOL (test code = 2237) 80 MG/DL RISK RATIO LDL/HDL (test code = 2.67 RATIO 2238) COMPREHENSIVE METABOLIC [id number] 00:00:00 Test Item Value Reference Range Interpretation Comments GLUCOSE (test code = 2217) 236 MG/DL BUN (test code = 2208) 14 MG/DL CREATININE (test code = 2214) 0.71 MG/DL eGFR AMER. (test code 122 ML/MIN/1.73 = 09508) eGFR NON- AMER. (test 105 ML/MIN/1.73 code = 05319) CALC BUN/CREAT (test code = 20 RATIO [...] code = 2219) 69 U/L COMPREHENSIVE METABOLIC [id number] 00:00:00 Test Item Value Reference Range Interpretation Comments GLUCOSE (test code = 2217) 236 MG/DL BUN (test code = 2208) 14 MG/DL CREATININE (test code = 2214) 0.71 MG/DL eGFR AMER. (test code 122 ML/MIN/1.73 = 85266) eGFR NON- AMER. (test 105 ML/MIN/1.73 code = 15699) CALC BUN/CREAT (test code = 20 RATIO [...] (test code = 2219) 69 U/L HEMOGLOBIN [id number] 00:00:00 Test Item Value Reference Range Interpretation Comments HEMOGLOBIN A1c (test code = 50640) 11.4 % HEMOGLOBIN [id number] 00:00:00 Test Item Value Reference Range Interpretation Comments HEMOGLOBIN A1c (test code = 75688) 11.4 % HEMOGLOBIN [id number] 00:00:00 Test Item Value Reference Range Interpretation Comments HEMOGLOBIN A1c (test code = 87350) 11.4 % LIPID [id number] 00:00:00 Test Item Value Reference Range Interpretation Comments CHOLESTEROL (test code = 2210) 162 MG/DL TRIGLYCERIDES (test code = 2232) 387 MG/DL HDL CHOLESTEROL (test code = 2220) 30 MG/DL CALC LDL CHOL (test code = 2237) 80 MG/DL RISK RATIO LDL/HDL (test code = 2.67 RATIO 2238) LIPID [id number] 00:00:00 Test Item Value Reference Range Interpretation Comments CHOLESTEROL (test code = 2210) 162 MG/DL TRIGLYCERIDES (test code = 2232) 387 MG/DL HDL CHOLESTEROL (test code = 2220) 30 MG/DL CALC LDL CHOL (test code = 2237) 80 MG/DL RISK RATIO LDL/HDL (test code = 2.67 RATIO 2238) COMPREHENSIVE METABOLIC [id number] 00:00:00 Test Item Value Reference Range Interpretation Comments GLUCOSE (test code = 2217) 236 MG/DL BUN (test code = 2208) 14 MG/DL CREATININE (test code = 2214) 0.71 MG/DL eGFR AMER. (test code 122 ML/MIN/1.73 = 63201) eGFR NON- AMER. (test 105 ML/MIN/1.73 code = 71479) CALC BUN/CREAT (test code = 20 RATIO [...] code = 2219) 69 U/L COMPREHENSIVE METABOLIC [id number] 00:00:00 Test Item Value Reference Range Interpretation Comments GLUCOSE (test code = 2217) 236 MG/DL BUN (test code = 2208) 14 MG/DL CREATININE (test code = 2214) 0.71 MG/DL eGFR AMER. (test code 122 ML/MIN/1.73 = 52190) eGFR NON- AMER. (test 105 ML/MIN/1.73 code = 50488) CALC BUN/CREAT (test code = 20 RATIO [...] (test code = 2219) 69 U/L HEMOGLOBIN [id number] 00:00:00 Test Item Value Reference Range Interpretation Comments HEMOGLOBIN A1c (test code = 40934) 11.4 % HEMOGLOBIN [id number] 00:00:00 Test Item Value Reference Range Interpretation Comments HEMOGLOBIN A1c (test code = 71340) 11.4 % HEMOGLOBIN [id number] 00:00:00 Test Item Value Reference Range Interpretation Comments HEMOGLOBIN A1c (test code = 66407) 11.4 % LIPID [id number] 00:00:00 Test Item Value Reference Range Interpretation Comments CHOLESTEROL (test code = 2210) 162 MG/DL TRIGLYCERIDES (test code = 2232) 387 MG/DL HDL CHOLESTEROL (test code = 2220) 30 MG/DL CALC LDL CHOL (test code = 2237) 80 MG/DL RISK RATIO LDL/HDL (test code = 2.67 RATIO 2238) LIPID [id number] 00:00:00 Test Item Value Reference Range Interpretation Comments CHOLESTEROL (test code = 2210) 162 MG/DL TRIGLYCERIDES (test code = 2232) 387 MG/DL HDL CHOLESTEROL (test code = 2220) 30 MG/DL CALC LDL CHOL (test code = 2237) 80 MG/DL RISK RATIO LDL/HDL (test code = 2.67 RATIO 2238) COMPREHENSIVE METABOLIC [id number] 00:00:00 Test Item Value Reference Range Interpretation Comments GLUCOSE (test code = 2217) 236 MG/DL BUN (test code = 2208) 14 MG/DL CREATININE (test code = 2214) 0.71 MG/DL eGFR AMER. (test code 122 ML/MIN/1.73 = 77851) eGFR NON- AMER. (test 105 ML/MIN/1.73 code = 67533) CALC BUN/CREAT (test code = 20 RATIO [...] code = 2219) 69 U/L COMPREHENSIVE METABOLIC [id number] 00:00:00 Test Item Value Reference Range Interpretation Comments GLUCOSE (test code = 2217) 236 MG/DL BUN (test code = 2208) 14 MG/DL CREATININE (test code = 2214) 0.71 MG/DL eGFR AMER. (test code 122 ML/MIN/1.73 = 30898) eGFR NON- AMER. (test 105 ML/MIN/1.73 code = 06897) CALC BUN/CREAT (test code = 20 RATIO [...] (test code = 2219) 69 U/L HEMOGLOBIN [id number] 00:00:00 Test Item Value Reference Range Interpretation Comments HEMOGLOBIN A1c (test code = 42116) 11.4 % HEMOGLOBIN [id number] 00:00:00 Test Item Value Reference Range Interpretation Comments HEMOGLOBIN A1c (test code = 35251) 11.4 % HEMOGLOBIN [id number] 00:00:00 Test Item Value Reference Range Interpretation Comments HEMOGLOBIN A1c (test code = 45179) 11.4 % LIPID [id number] 00:00:00 Test Item Value Reference Range Interpretation Comments CHOLESTEROL (test code = 2210) 162 MG/DL TRIGLYCERIDES (test code = 2232) 387 MG/DL HDL CHOLESTEROL (test code = 2220) 30 MG/DL CALC LDL CHOL (test code = 2237) 80 MG/DL RISK RATIO LDL/HDL (test code = 2.67 RATIO 2238) LIPID [id number] 00:00:00 Test Item Value Reference Range Interpretation Comments CHOLESTEROL (test code = 2210) 162 MG/DL TRIGLYCERIDES (test code = 2232) 387 MG/DL HDL CHOLESTEROL (test code = 2220) 30 MG/DL CALC LDL CHOL (test code = 2237) 80 MG/DL RISK RATIO LDL/HDL (test code = 2.67 RATIO 2238) HEMOGLOBIN [id number] 00:00:00 Test Item Value Reference Range Interpretation Comments HEMOGLOBIN A1c (test code = 73593) 11.4 % COMPREHENSIVE METABOLIC [id number] 00:00:00 Test Item Value Reference Range Interpretation Comments GLUCOSE (test code = 2217) 236 MG/DL BUN (test code = 2208) 14 MG/DL CREATININE (test code = 2214) 0.71 MG/DL eGFR AMER. (test code 122 ML/MIN/1.73 = 54527) eGFR NON- AMER. (test 105 ML/MIN/1.73 code = 97274) CALC BUN/CREAT (test code = 20 RATIO [...] code = 2219) 69 U/L COMPREHENSIVE METABOLIC [id number] 00:00:00 Test Item Value Reference Range Interpretation Comments GLUCOSE (test code = 2217) 236 MG/DL BUN (test code = 2208) 14 MG/DL CREATININE (test code = 2214) 0.71 MG/DL eGFR AMER. (test code 122 ML/MIN/1.73 = 66831) eGFR NON- AMER. (test 105 ML/MIN/1.73 code = 01058) CALC BUN/CREAT (test code = 20 RATIO 2235) SODIUM (test code = 2231) 138 MEQ/L POTASSIUM (test code = 2228) 4.3 MEQ/L CHLORIDE (test code = 2215) 103 MEQ/L CARBON DIOXIDE (test code = 19 MEQ/L 2205) CALCIUM (test code = 220) [...] (test code = 2219) 69 U/L HEMOGLOBIN [id number] 00:00:00 Test Item Value Reference Range Interpretation Comments HEMOGLOBIN A1c (test code = 52887) 11.4 % LIPID [id number] 00:00:00 Test Item Value Reference Range Interpretation Comments CHOLESTEROL (test code = 2210) 162 MG/DL TRIGLYCERIDES (test code = 2232) 387 MG/DL HDL CHOLESTEROL (test code = 2220) 30 MG/DL CALC LDL CHOL (test code = 2237) 80 MG/DL RISK RATIO LDL/HDL (test code = 2.67 RATIO 8) COMPREHENSIVE METABOLIC [id number] 00:00:00 Test Item Value Reference Range Interpretation Comments GLUCOSE (test code = 2217) 236 MG/DL BUN (test code = 2208) 14 MG/DL CREATININE (test code = 2214) 0.71 MG/DL eGFR AMER. (test code 122 ML/MIN/1.73 = 02762) eGFR NON- AMER. (test 105 ML/MIN/1.73 code = 05904) CALC BUN/CREAT (test code = 20 RATIO [...] (test code = 2219) 69 U/L HEMOGLOBIN [id number] 00:00:00 Test Item Value Reference Range Interpretation Comments HEMOGLOBIN A1c (test code = 26556) 11.4 % HEMOGLOBIN [id number] 00:00:00 Test Item Value Reference Range Interpretation Comments HEMOGLOBIN A1c (test code = 56756) 11.4 % HEMOGLOBIN [id number] 00:00:00 Test Item Value Reference Range Interpretation Comments HEMOGLOBIN A1c (test code = 37762) 11.4 % LIPID [id number] 00:00:00 Test Item Value Reference Range Interpretation Comments CHOLESTEROL (test code = 2210) 162 MG/DL TRIGLYCERIDES (test code = 2232) 387 MG/DL HDL CHOLESTEROL (test code = 2220) 30 MG/DL CALC LDL CHOL (test code = 2237) 80 MG/DL RISK RATIO LDL/HDL (test code = 2.67 RATIO 2238) LIPID [id number] 00:00:00 Test Item Value Reference Range Interpretation Comments CHOLESTEROL (test code = 2210) 162 MG/DL TRIGLYCERIDES (test code = 2232) 387 MG/DL HDL CHOLESTEROL (test code = 2220) 30 MG/DL CALC LDL CHOL (test code = 2237) 80 MG/DL RISK RATIO LDL/HDL (test code = 2.67 RATIO 2238) COMPREHENSIVE METABOLIC [id number] 00:00:00 Test Item Value Reference Range Interpretation Comments GLUCOSE (test code = 2217) 236 MG/DL BUN (test code = 2208) 14 MG/DL CREATININE (test code = 2214) 0.71 MG/DL eGFR AMER. (test code 122 ML/MIN/1.73 = 57736) eGFR NON- AMER. (test 105 ML/MIN/1.73 code = 17181) CALC BUN/CREAT (test code = 20 RATIO [...] code = 2219) 69 U/L COMPREHENSIVE METABOLIC [id number] 00:00:00 Test Item Value Reference Range Interpretation Comments GLUCOSE (test code = 2217) 236 MG/DL BUN (test code = 2208) 14 MG/DL CREATININE (test code = 2214) 0.71 MG/DL eGFR AMER. (test code 122 ML/MIN/1.73 = 68264) eGFR NON- AMER. (test 105 ML/MIN/1.73 code = 35188) CALC BUN/CREAT (test code = 20 RATIO [...] (test code = 2219) 69 U/L HEMOGLOBIN [id number] 00:00:00 Test Item Value Reference Range Interpretation Comments HEMOGLOBIN A1c (test code = 62521) 11.4 % HEMOGLOBIN [id number] 00:00:00 Test Item Value Reference Range Interpretation Comments HEMOGLOBIN A1c (test code = 92621) 11.4 % HEMOGLOBIN [id number] 00:00:00 Test Item Value Reference Range Interpretation Comments HEMOGLOBIN A1c (test code = 29863) 11.4 % LIPID [id number] 00:00:00 Test Item Value Reference Range Interpretation Comments CHOLESTEROL (test code = 2210) 162 MG/DL TRIGLYCERIDES (test code = 2232) 387 MG/DL HDL CHOLESTEROL (test code = 2220) 30 MG/DL CALC LDL CHOL (test code = 2237) 80 MG/DL RISK RATIO LDL/HDL (test code = 2.67 RATIO 2238) LIPID [id number] 00:00:00 Test Item Value Reference Range Interpretation Comments CHOLESTEROL (test code = 2210) 162 MG/DL TRIGLYCERIDES (test code = 2232) 387 MG/DL HDL CHOLESTEROL (test code = 2220) 30 MG/DL CALC LDL CHOL (test code = 2237) 80 MG/DL RISK RATIO LDL/HDL (test code = 2.67 RATIO 2238) COMPREHENSIVE METABOLIC [id number] 00:00:00 Test Item Value Reference Range Interpretation Comments GLUCOSE (test code = 2217) 236 MG/DL BUN (test code = 2208) 14 MG/DL CREATININE (test code = 2214) 0.71 MG/DL eGFR AMER. (test code 122 ML/MIN/1.73 = 93463) eGFR NON- AMER. (test 105 ML/MIN/1.73 code = 26407) CALC BUN/CREAT (test code = 20 RATIO [...] code = 2219) 69 U/L COMPREHENSIVE METABOLIC [id number] 00:00:00 Test Item Value Reference Range Interpretation Comments GLUCOSE (test code = 2217) 236 MG/DL BUN (test code = 2208) 14 MG/DL CREATININE (test code = 2214) 0.71 MG/DL eGFR AMER. (test code 122 ML/MIN/1.73 = 33705) eGFR NON- AMER. (test 105 ML/MIN/1.73 code = 40919) CALC BUN/CREAT (test code = 20 RATIO [...] (test code = 2219) 69 U/L HEMOGLOBIN [id number] 00:00:00 Test Item Value Reference Range Interpretation Comments HEMOGLOBIN A1c (test code = 74166) 11.4 % HEMOGLOBIN [id number] 00:00:00 Test Item Value Reference Range Interpretation Comments HEMOGLOBIN A1c (test code = 37355) 11.4 % HEMOGLOBIN [id number] 00:00:00 Test Item Value Reference Range Interpretation Comments HEMOGLOBIN A1c (test code = 70850) 11.4 % LIPID [id number] 00:00:00 Test Item Value Reference Range Interpretation Comments CHOLESTEROL (test code = 2210) 162 MG/DL TRIGLYCERIDES (test code = 2232) 387 MG/DL HDL CHOLESTEROL (test code = 2220) 30 MG/DL CALC LDL CHOL (test code = 2237) 80 MG/DL RISK RATIO LDL/HDL (test code = 2.67 RATIO 2238) LIPID [id number] 00:00:00 Test Item Value Reference Range Interpretation Comments CHOLESTEROL (test code = 2210) 162 MG/DL TRIGLYCERIDES (test code = 2232) 387 MG/DL HDL CHOLESTEROL (test code = 2220) 30 MG/DL CALC LDL CHOL (test code = 2237) 80 MG/DL RISK RATIO LDL/HDL (test code = 2.67 RATIO 2238) COMPREHENSIVE METABOLIC [id number] 00:00:00 Test Item Value Reference Range Interpretation Comments GLUCOSE (test code = 2217) 236 MG/DL BUN (test code = 2208) 14 MG/DL CREATININE (test code = 2214) 0.71 MG/DL eGFR AMER. (test code 122 ML/MIN/1.73 = 20682) eGFR NON- AMER. (test 105 ML/MIN/1.73 code = 69847) CALC BUN/CREAT (test code = 20 RATIO [...] code = 2219) 69 U/L COMPREHENSIVE METABOLIC [id number] 00:00:00 Test Item Value Reference Range Interpretation Comments GLUCOSE (test code = 2217) 236 MG/DL BUN (test code = 2208) 14 MG/DL CREATININE (test code = 2214) 0.71 MG/DL eGFR AMER. (test code 122 ML/MIN/1.73 = 55675) eGFR NON- AMER. (test 105 ML/MIN/1.73 code = 04361) CALC BUN/CREAT (test code = 20 RATIO [...] U/L - CT UP EXTREM W/O CONT [id number] 08:37:00 [facility] 1980 Sex: F PatientName: MARGE FRANCO Unit No: [id number] EXAMS: CPT CODE: [id number] [place] EXTREM W/[place] [address] [place] SCAN LEFT WRIST WITH RECONSTRUCTION DIAGNOSIS: [...] with ACR practice standards and adherence to corporate communications specialist's recommendations. INDICATION: LEFT WRIST SPRAIN, POSSIBLE SCAPHOID FRACTURE COMPARISON: None. COMMENT: Findings are as described above. at 0837 Reported and signed by: America Schuler MD CC: Bebeto Quiroga MD Technologist: KAVEH WYMAN MRI CTDI: DLP: Trnscrpt: 08/11/2020 (0837) [facility] NAME: DYLAN FRANCONNE [address] [place] [address] PHYS: Bebeto Valiente MD : 1980 AGE: 40 SEX: F [place] [address] LOC: Y.RAD PHONE #: [phone] EXAM DATE: 08/08/2020TATUS: DEP CLI FAX #: [phone] RAD #: D/C DT PAGE 1 Signed Report Patient Name: MARGE FRANCO Unit No: [id number] EXAMS: CPT CODE: [id number] [place] UP EXTREM W/[place] [address] (Continued) Orig Print D/T: S: 08/11/2020 (0840) [facility] [address] PHYS: Bebeto Valiente MD : 1980 AGE: 40 SEX: F [place] [address] LOC: Y.RAD PHONE #: [phone] EXAM DATE: 08/08/2020 STATUS: DEP CLI FAX #: [phone] RAD #: D/C DT PAGE 2 Signed ReportCULTURE, [id number] 00:00:00 Test Item Value Reference Range Interpretation Comments CULTURE, URINE (test SPECIMEN NUMBER: code = 63646) [id number] CULTURE, [id number] 00:00:00 Test Item Value Reference Range Interpretation Comments CULTURE, URINE (test SPECIMEN NUMBER: code = 03097) [id number] CULTURE, [id number] 00:00:00 Test Item Value Reference Range Interpretation Comments CULTURE, URINE (test SPECIMEN NUMBER: code = 28002) [id number] CULTURE, [id number] 00:00:00 Test Item Value Reference Range Interpretation Comments CULTURE, URINE (test SPECIMEN NUMBER: code = 60074) [id number] CULTURE, [id number] 00:00:00 Test Item Value Reference Range Interpretation Comments CULTURE, URINE (test SPECIMEN NUMBER: code = 30103) [id number] CULTURE, [id number] 00:00:00 Test Item Value Reference Range Interpretation Comments CULTURE, URINE (test SPECIMEN NUMBER: code = 86984) [id number] CULTURE, [id number] 00:00:00 Test Item Value Reference Range Interpretation Comments CULTURE, URINE (test SPECIMEN NUMBER: code = 83000) [id number] CULTURE, [id number] 00:00:00 Test Item Value Reference Range Interpretation Comments CULTURE, URINE (test SPECIMEN NUMBER: code = 80677) [id number] CULTURE, [id number] 00:00:00 Test Item Value Reference Range Interpretation Comments CULTURE, URINE (test SPECIMEN NUMBER: code = 35035) [id number] CULTURE, [id number] 00:00:00 Test Item Value Reference Range Interpretation Comments CULTURE, URINE (test SPECIMEN NUMBER: code = 06684) [id number] CULTURE, [id number] 00:00:00 Test Item Value Reference Range Interpretation Comments CULTURE, URINE (test SPECIMEN NUMBER: code = 13028) [id number] CULTURE, [id number] 00:00:00 Test Item Value Reference Range Interpretation Comments CULTURE, URINE (test SPECIMEN NUMBER: code = 94561) [id number] CULTURE, [id number] 00:00:00 Test Item Value Reference Range Interpretation Comments CULTURE, URINE (test SPECIMEN NUMBER: code = 25125) [id number] CULTURE, [id number] 00:00:00 Test Item Value Reference Range Interpretation Comments CULTURE, URINE (test SPECIMEN NUMBER: code = 48460) [id number] CULTURE, [id number] 00:00:00 Test Item Value Reference Range Interpretation Comments CULTURE, URINE (test SPECIMEN NUMBER: code = 33548) [id number] CULTURE, [id number] 00:00:00 Test Item Value Reference Range Interpretation Comments CULTURE, URINE (test SPECIMEN NUMBER: code = 98493) [id number] CULTURE, [id number] 00:00:00 Test Item Value Reference Range Interpretation Comments CULTURE, URINE (test SPECIMEN NUMBER: code = 46082) [id number] CULTURE, [id number] 00:00:00 Test Item Value Reference Range Interpretation Comments CULTURE, URINE (test SPECIMEN NUMBER: code = 98111) [id number] CULTURE, [id number] 00:00:00 Test Item Value Reference Range Interpretation Comments CULTURE, URINE (test SPECIMEN NUMBER: code = 55486) [id number] CULTURE, [id number] 00:00:00 Test Item Value Reference Range Interpretation Comments CULTURE, URINE (test SPECIMEN NUMBER: code = 28336) [id number] CULTURE, [id number] 00:00:00 Test Item Value Reference Range Interpretation Comments CULTURE, URINE (test SPECIMEN NUMBER: code = 42798) [id number] VAGINAL PATHOGENS DNA [id number] 00:00:00 Test Item Value Reference Range Interpretation Comments ANDIE SPECIES (test code = 41296) NEGATIVE G. VAGINALIS (test code = 32932) NEGATIVE T. VAGINALIS (test code = 03480) NEGATIVE VAGINAL PATHOGENS DNA [id number] 00:00:00 Test Item Value Reference Range Interpretation Comments ANDIE SPECIES (test code = 17346) NEGATIVE G. VAGINALIS (test code = 53304) NEGATIVE T. VAGINALIS (test code = 46172) NEGATIVE VAGINAL PATHOGENS DNA [id number] 00:00:00 Test Item Value Reference Range Interpretation Comments ANDIE SPECIES (test code = 31928) NEGATIVE G. VAGINALIS (test code = 86465) NEGATIVE T. VAGINALIS (test code = 88720) NEGATIVE VAGINAL PATHOGENS DNA [id number] 00:00:00 Test Item Value Reference Range Interpretation Comments ANDIE SPECIES (test code = 41965) NEGATIVE G. VAGINALIS (test code = 24172) NEGATIVE T. VAGINALIS (test code = 04812) NEGATIVE VAGINAL PATHOGENS DNA [id number] 00:00:00 Test Item Value Reference Range Interpretation Comments ANDIE SPECIES (test code = 70934) NEGATIVE G. VAGINALIS (test code = 11564) NEGATIVE T. VAGINALIS (test code = 10662) NEGATIVE VAGINAL PATHOGENS DNA [id number] 00:00:00 Test Item Value Reference Range Interpretation Comments ANDIE SPECIES (test code = 43809) NEGATIVE G. VAGINALIS (test code = 51595) NEGATIVE T. VAGINALIS (test code = 15299) NEGATIVE VAGINAL PATHOGENS DNA [id number] 00:00:00 Test Item Value Reference Range Interpretation Comments ANDIE SPECIES (test code = 65770) NEGATIVE G. VAGINALIS (test code = 63775) NEGATIVE T. VAGINALIS (test code = 41903) NEGATIVE VAGINAL PATHOGENS DNA [id number] 00:00:00 Test Item Value Reference Range Interpretation Comments ANDIE SPECIES (test code = 86031) NEGATIVE G. VAGINALIS (test code = 70969) NEGATIVE T. VAGINALIS (test code = 83068) NEGATIVE VAGINAL PATHOGENS DNA [id number] 00:00:00 Test Item Value Reference Range Interpretation Comments ANDIE SPECIES (test code = 48100) NEGATIVE G. VAGINALIS (test code = 94408) NEGATIVE T. VAGINALIS (test code = 18675) NEGATIVE VAGINAL PATHOGENS DNA [id number] 00:00:00 Test Item Value Reference Range Interpretation Comments ANDIE SPECIES (test code = 89631) NEGATIVE G. VAGINALIS (test code = 44817) NEGATIVE T. VAGINALIS (test code = 60263) NEGATIVE VAGINAL PATHOGENS DNA [id number] 00:00:00 Test Item Value Reference Range Interpretation Comments ANDIE SPECIES (test code = 56150) NEGATIVE G. VAGINALIS (test code = 40103) NEGATIVE T. VAGINALIS (test code = 52896) NEGATIVE VAGINAL PATHOGENS DNA [id number] 00:00:00 Test Item Value Reference Range Interpretation Comments ANDIE SPECIES (test code = 02510) NEGATIVE G. VAGINALIS (test code = 21574) NEGATIVE T. VAGINALIS (test code = 35374) NEGATIVE VAGINAL PATHOGENS DNA [id number] 00:00:00 Test Item Value Reference Range Interpretation Comments ANDIE SPECIES (test code = 90612) NEGATIVE G. VAGINALIS (test code = 24158) NEGATIVE T. VAGINALIS (test code = 54247) NEGATIVE VAGINAL PATHOGENS DNA [id number] 00:00:00 Test Item Value Reference Range Interpretation Comments ANDIE SPECIES (test code = 57017) NEGATIVE G. VAGINALIS (test code = 17962) NEGATIVE T. VAGINALIS (test code = 34453) NEGATIVE VAGINAL PATHOGENS DNA [id number] 00:00:00 Test Item Value Reference Range Interpretation Comments ANDIE SPECIES (test code = 11083) NEGATIVE G. VAGINALIS (test code = 56918) NEGATIVE T. VAGINALIS (test code = 55226) NEGATIVE VAGINAL PATHOGENS DNA [id number] 00:00:00 Test Item Value Reference Range Interpretation Comments ANDIE SPECIES (test code = 99114) NEGATIVE G. VAGINALIS (test code = 86512) NEGATIVE T. VAGINALIS (test code = 08970) NEGATIVE VAGINAL PATHOGENS DNA [id number] 00:00:00 Test Item Value Reference Range Interpretation Comments ANDIE SPECIES (test code = 84828) NEGATIVE G. VAGINALIS (test code = 51343) NEGATIVE T. VAGINALIS (test code = 19672) NEGATIVE VAGINAL PATHOGENS DNA [id number] 00:00:00 Test Item Value Reference Range Interpretation Comments ANDIE SPECIES (test code = 17343) NEGATIVE G. VAGINALIS (test code = 02742) NEGATIVE T. VAGINALIS (test code = 86383) NEGATIVE VAGINAL PATHOGENS DNA [id number] 00:00:00 Test Item Value Reference Range Interpretation Comments ANDIE SPECIES (test code = 51931) NEGATIVE G. VAGINALIS (test code = 98124) NEGATIVE T. VAGINALIS (test code = 85534) NEGATIVE VAGINAL PATHOGENS DNA [id number] 00:00:00 Test Item Value Reference Range Interpretation Comments ANDIE SPECIES (test code = 07840) NEGATIVE G. VAGINALIS (test code = 54570) NEGATIVE T. VAGINALIS (test code = 14360) NEGATIVE VAGINAL PATHOGENS DNA [id number] 00:00:00 Test Item Value Reference Range Interpretation Comments ANDIE SPECIES (test code = 24609) NEGATIVE G. VAGINALIS (test code = 32004) NEGATIVE T. VAGINALIS (test code = 66094) NEGATIVE - XR FOREARM 2 VIEWS [id number] 09:10:00 [facility] 1980 Sex: F PatientName: MARGE FRANCO Unit No: [id number] EXAMS: CPT CODE: [id number] XR FORE[place] [address] [place] [address] Left forearm and wrist 4 views COMMENT: There is no evidence for fracture or subluxation. No focal bony lesions are seen. at 0910 Reported and signed by: Prasad Marina MD CC: Rafy Ferguson MD Technologist: Marie Johnson(R) Transcribed D/ (0910) [facility] NAME: MARGE FRANCO [address] [place] [address] PHYS: HAMST.Rell Rafy Ferguson [place] : 1980 AGE: 40 SEX: F [place] [address] LOC: TEOFILO PHONE #: [phone] EXAM DATE: 08/02/2020 STATUS: DEP ERFAX #: [phone] RAD #: D/C DT PAGE 1 Signed Report Patient Name: MARGE FRANCO Unit No: [id number] EXAMS: CPT CODE: [id number] XR FORE[place] [address] [place] [address] (Continued) Orig Print D/T: S: 08/04/2020 (0914) [facility] NAME: DYLAN FRANCO[address] PHYS: YOUSIF.Rell - MartyMarcelRafy [place] : 1980 AGE: 40 SEX: F [place] [address] LOC: TEOFILO PHONE #: [phone] EXAM DATE: 08/02/2020 STATUS: DEP ER FAX #: [phone] RAD #: D/C DT PAGE 2 Signed ReportCULTURE, URINE 2020-05-18 00:00:00 Test Item Value Reference Range Interpretation Comments CULTURE, URINE (test SPECIMEN NUMBER: code = 31337) [id number] CULTURE, [id number] 00:00:00 Test Item Value Reference Range Interpretation Comments CULTURE, URINE (test SPECIMEN NUMBER: code = 54735) [id number] CULTURE, [id number] 00:00:00 Test Item Value Reference Range Interpretation Comments CULTURE, URINE (test SPECIMEN NUMBER: code = 22269) [id number] CULTURE, [id number] 00:00:00 Test Item Value Reference Range Interpretation Comments CULTURE, URINE (test SPECIMEN NUMBER: code = 16618) [id number] CULTURE, [id number] 00:00:00 Test Item Value Reference Range Interpretation Comments CULTURE, URINE (test SPECIMEN NUMBER: code = 75404) [id number] CULTURE, [id number] 00:00:00 Test Item Value Reference Range Interpretation Comments CULTURE, URINE (test SPECIMEN NUMBER: code = 43786) [id number] CULTURE, [id number] 00:00:00 Test Item Value Reference Range Interpretation Comments CULTURE, URINE (test SPECIMEN NUMBER: code = 81679) [id number] CULTURE, [id number] 00:00:00 Test Item Value Reference Range Interpretation Comments CULTURE, URINE (test SPECIMEN NUMBER: code = 90333) [id number] CULTURE, [id number] 00:00:00 Test Item Value Reference Range Interpretation Comments CULTURE, URINE (test SPECIMEN NUMBER: code = 48899) [id number] CULTURE, [id number] 00:00:00 Test Item Value Reference Range Interpretation Comments CULTURE, URINE (test SPECIMEN NUMBER: code = 49065) [id number] CULTURE, [id number] 00:00:00 Test Item Value Reference Range Interpretation Comments CULTURE, URINE (test SPECIMEN NUMBER: code = 68068) [id number] CULTURE, [id number] 00:00:00 Test Item Value Reference Range Interpretation Comments CULTURE, URINE (test SPECIMEN NUMBER: code = 20464) [id number] CULTURE, [id number] 00:00:00 Test Item Value Reference Range Interpretation Comments CULTURE, URINE (test SPECIMEN NUMBER: code = 47481) [id number] CULTURE, [id number] 00:00:00 Test Item Value Reference Range Interpretation Comments CULTURE, URINE (test SPECIMEN NUMBER: code = 60839) [id number] CULTURE, [id number] 00:00:00 Test Item Value Reference Range Interpretation Comments CULTURE, URINE (test SPECIMEN NUMBER: code = 11614) [id number] CULTURE, [id number] 00:00:00 Test Item Value Reference Range Interpretation Comments CULTURE, URINE (test SPECIMEN NUMBER: code = 54812) [id number] CULTURE, [id number] 00:00:00 Test Item Value Reference Range Interpretation Comments CULTURE, URINE (test SPECIMEN NUMBER: code = 57258) [id number] CULTURE, [id number] 00:00:00 Test Item Value Reference Range Interpretation Comments CULTURE, URINE (test SPECIMEN NUMBER: code = 10831) [id number] CULTURE, [id number] 00:00:00 Test Item Value Reference Range Interpretation Comments CULTURE, URINE (test SPECIMEN NUMBER: code = 33818) [id number] CULTURE, [id number] 00:00:00 Test Item Value Reference Range Interpretation Comments CULTURE, URINE (test SPECIMEN NUMBER: code = 45487) [id number] CULTURE, [id number] 00:00:00 Test Item Value Reference Range Interpretation Comments CULTURE, URINE (test SPECIMEN NUMBER: code = 36674) [id number] SARS-CoV-2 (COVID-19) by RT-PCR (HIGH RISK)2020-04-23 00:00:00 Test Item Value Reference Range Interpretation Comments SARS-CoV-2 INTERPRETATION Negative (test code = 86613) SOURCE (test code = 56011) Nasal_Swab_in_VTM__ UTM SARS-CoV-2 (COVID-19) by RT-PCR (HIGH RISK)2020-04-23 00:00:00 Test Item Value Reference Range Interpretation Comments SARS-CoV-2 INTERPRETATION Negative (test code = 89436) SOURCE (test code = 13498) Nasal_Swab_in_VTM__ UTM SARS-CoV-2 (COVID-19) by RT-PCR (HIGH RISK)2020-04-23 00:00:00 Test Item Value Reference Range Interpretation Comments SARS-CoV-2 INTERPRETATION Negative (test code = 03613) SOURCE (test code = 17710) Nasal_Swab_in_VTM__ UTM SARS-CoV-2 (COVID-19) by RT-PCR (HIGH RISK)2020-04-23 00:00:00 Test Item Value Reference Range Interpretation Comments SARS-CoV-2 INTERPRETATION Negative (test code = 39358) SOURCE (test code = 96135) Nasal_Swab_in_VTM__ UTM SARS-CoV-2 (COVID-19) by RT-PCR (HIGH RISK)2020-04-23 00:00:00 Test Item Value Reference Range Interpretation Comments SARS-CoV-2 INTERPRETATION Negative (test code = 17366) SOURCE (test code = 51923) Nasal_Swab_in_VTM__ UTM SARS-CoV-2 (COVID-19) by RT-PCR (HIGH RISK)2020-04-23 00:00:00 Test Item Value Reference Range Interpretation Comments SARS-CoV-2 INTERPRETATION Negative (test code = 32111) SOURCE (test code = 37959) Nasal_Swab_in_VTM__ UTM SARS-CoV-2 (COVID-19) by RT-PCR (HIGH RISK)2020-04-23 00:00:00 Test Item Value Reference Range Interpretation Comments SARS-CoV-2 INTERPRETATION Negative (test code = 39951) SOURCE (test code = 65671) Nasal_Swab_in_VTM__ UTM SARS-CoV-2 (COVID-19) by RT-PCR (HIGH RISK)2020-04-23 00:00:00 Test Item Value Reference Range Interpretation Comments SARS-CoV-2 INTERPRETATION Negative (test code = 55849) SOURCE (test code = 81170) Nasal_Swab_in_VTM__ UTM SARS-CoV-2 (COVID-19) by RT-PCR (HIGH RISK)2020-04-23 00:00:00 Test Item Value Reference Range Interpretation Comments SARS-CoV-2 INTERPRETATION Negative (test code = 24220) SOURCE (test code = 79993) Nasal_Swab_in_VTM__ UTM SARS-CoV-2 (COVID-19) by RT-PCR (HIGH RISK)2020-04-23 00:00:00 Test Item Value Reference Range Interpretation Comments SARS-CoV-2 INTERPRETATION Negative (test code = 29125) SOURCE (test code = 53249) Nasal_Swab_in_VTM__ UTM SARS-CoV-2 (COVID-19) by RT-PCR (HIGH RISK)2020-04-23 00:00:00 Test Item Value Reference Range Interpretation Comments SARS-CoV-2 INTERPRETATION Negative (test code = 91015) SOURCE (test code = 22546) Nasal_Swab_in_VTM__ UTM COMPREHENSIVE METABOLIC [id number] 00:00:00 Test Item Value Reference Range Interpretation Comments GLUCOSE (test code = 2217) 217 MG/DL BUN (test code = 2208) 13 MG/DL CREATININE (test code = 2214) 0.64 MG/DL eGFR AMER. (test code 128 ML/MIN/1.73 = 27669) eGFR NON- AMER. (test 110 ML/MIN/1.73 code = 23017) CALC BUN/CREAT (test code = 20 RATIO [...] (test code = 2219) 47 U/L CULTURE, [id number] 00:00:00 Test Item Value Reference Range Interpretation Comments CULTURE, URINE (test SPECIMEN NUMBER: code = 70558) [id number] COMPREHENSIVE METABOLIC [id number] 00:00:00 Test Item Value Reference Range Interpretation Comments GLUCOSE (test code = 2217) 217 MG/DL BUN (test code = 2208) 13 MG/DL CREATININE (test code = 2214) 0.64 MG/DL eGFR AMER. (test code 128 ML/MIN/1.73 = 13912) eGFR NON- AMER. (test 110 ML/MIN/1.73 code = 39403) CALC BUN/CREAT (test code = 20 RATIO [...] (test code = 2219) 47 U/L CULTURE, [id number] 00:00:00 Test Item Value Reference Range Interpretation Comments CULTURE, URINE (test SPECIMEN NUMBER: code = 93637) [id number] LIPID [id number] 00:00:00 Test Item Value Reference Range Interpretation Comments CHOLESTEROL (test code = 2210) 220 MG/DL TRIGLYCERIDES (test code = 2232) 873 MG/DL HDL CHOLESTEROL (test code = 30 MG/DL 2220) CALC LDL CHOL (test code = 2237) (NOTE) MG/DL RISK RATIO LDL/HDL (test code = (NOTE) RATIO 2238) LIPID [id number] 00:00:00 Test Item Value Reference Range Interpretation Comments CHOLESTEROL (test code = 2210) 220 MG/DL TRIGLYCERIDES (test code = 2232) 873 MG/DL HDL CHOLESTEROL (test code = 30 MG/DL 2220) CALC LDL CHOL (test code = 2237) (NOTE) MG/DL RISK RATIO LDL/HDL (test code = (NOTE) RATIO 2238) HEMOGLOBIN [id number] 00:00:00 Test Item Value Reference Range Interpretation Comments HEMOGLOBIN A1c (test code = 77721) 10.9 % HEMOGLOBIN [id number] 00:00:00 Test Item Value Reference Range Interpretation Comments HEMOGLOBIN A1c (test code = 54985) 10.9 % HEMOGLOBIN [id number] 00:00:00 Test Item Value Reference Range Interpretation Comments HEMOGLOBIN A1c (test code = 71509) 10.9 % COMPREHENSIVE METABOLIC [id number] 00:00:00 Test Item Value Reference Range Interpretation Comments GLUCOSE (test code = 2217) 217 MG/DL BUN (test code = 2208) 13 MG/DL CREATININE (test code = 2214) 0.64 MG/DL eGFR AMER. (test code 128 ML/MIN/1.73 = 17376) eGFR NON- AMER. (test 110 ML/MIN/1.73 code = 95106) CALC BUN/CREAT (test code = 20 RATIO [...] code = 2219) 47 U/L COMPREHENSIVE METABOLIC [id number] 00:00:00 Test Item Value Reference Range Interpretation Comments GLUCOSE (test code = 2217) 217 MG/DL BUN (test code = 2208) 13 MG/DL CREATININE (test code = 2214) 0.64 MG/DL eGFR AMER. (test code 128 ML/MIN/1.73 = 48024) eGFR NON- AMER. (test 110 ML/MIN/1.73 code = 07119) CALC BUN/CREAT (test code = 20 RATIO [...] (test code = 2219) 47 U/L CULTURE, [id number] 00:00:00 Test Item Value Reference Range Interpretation Comments CULTURE, URINE (test SPECIMEN NUMBER: code = 23236) [id number] CULTURE, [id number] 00:00:00 Test Item Value Reference Range Interpretation Comments CULTURE, URINE (test SPECIMEN NUMBER: code = 59411) [id number] LIPID [id number] 00:00:00 Test Item Value Reference Range Interpretation Comments CHOLESTEROL (test code = 2210) 220 MG/DL TRIGLYCERIDES (test code = 2232) 873 MG/DL HDL CHOLESTEROL (test code = 30 MG/DL 2220) CALC LDL CHOL (test code = 2237) (NOTE) MG/DL RISK RATIO LDL/HDL (test code = (NOTE) RATIO 2238) LIPID [id number] 00:00:00 Test Item Value Reference Range Interpretation Comments CHOLESTEROL (test code = 2210) 220 MG/DL TRIGLYCERIDES (test code = 2232) 873 MG/DL HDL CHOLESTEROL (test code = 30 MG/DL 2220) CALC LDL CHOL (test code = 2237) (NOTE) MG/DL RISK RATIO LDL/HDL (test code = (NOTE) RATIO 2238) HEMOGLOBIN [id number] 00:00:00 Test Item Value Reference Range Interpretation Comments HEMOGLOBIN A1c (test code = 66432) 10.9 % HEMOGLOBIN [id number] 00:00:00 Test Item Value Reference Range Interpretation Comments HEMOGLOBIN A1c (test code = 38518) 10.9 % HEMOGLOBIN [id number] 00:00:00 Test Item Value Reference Range Interpretation Comments HEMOGLOBIN A1c (test code = 83423) 10.9 % CULTURE, [id number] 00:00:00 Test Item Value Reference Range Interpretation Comments CULTURE, URINE (test SPECIMEN NUMBER: code = 56480) [id number] CULTURE, [id number] 00:00:00 Test Item Value Reference Range Interpretation Comments CULTURE, URINE (test SPECIMEN NUMBER: code = 11144) [id number] COMPREHENSIVE METABOLIC [id number] 00:00:00 Test Item Value Reference Range Interpretation Comments GLUCOSE (test code = 2217) 217 MG/DL BUN (test code = 2208) 13 MG/DL CREATININE (test code = 2214) 0.64 MG/DL eGFR AMER. (test code 128 ML/MIN/1.73 = 99349) eGFR NON- AMER. (test 110 ML/MIN/1.73 code = 18784) CALC BUN/CREAT (test code = 20 RATIO [...] code = 2219) 47 U/L COMPREHENSIVE METABOLIC [id number] 00:00:00 Test Item Value Reference Range Interpretation Comments GLUCOSE (test code = 2217) 217 MG/DL BUN (test code = 2208) 13 MG/DL CREATININE (test code = 2214) 0.64 MG/DL eGFR AMER. (test code 128 ML/MIN/1.73 = 25950) eGFR NON- AMER. (test 110 ML/MIN/1.73 code = 93327) CALC BUN/CREAT (test code = 20 RATIO [...] (test code = 2219) 47 U/L LIPID [id number] 00:00:00 Test Item Value Reference Range Interpretation Comments CHOLESTEROL (test code = 2210) 220 MG/DL TRIGLYCERIDES (test code = 2232) 873 MG/DL HDL CHOLESTEROL (test code = 30 MG/DL 2220) CALC LDL CHOL (test code = 2237) (NOTE) MG/DL RISK RATIO LDL/HDL (test code = (NOTE) RATIO 2238) LIPID [id number] 00:00:00 Test Item Value Reference Range Interpretation Comments CHOLESTEROL (test code = 2210) 220 MG/DL TRIGLYCERIDES (test code = 2232) 873 MG/DL HDL CHOLESTEROL (test code = 30 MG/DL 2220) CALC LDL CHOL (test code = 2237) (NOTE) MG/DL RISK RATIO LDL/HDL (test code = (NOTE) RATIO 2238) HEMOGLOBIN [id number] 00:00:00 Test Item Value Reference Range Interpretation Comments HEMOGLOBIN A1c (test code = 66791) 10.9 % HEMOGLOBIN [id number] 00:00:00 Test Item Value Reference Range Interpretation Comments HEMOGLOBIN A1c (test code = 87237) 10.9 % HEMOGLOBIN [id number] 00:00:00 Test Item Value Reference Range Interpretation Comments HEMOGLOBIN A1c (test code = 74725) 10.9 % CULTURE, [id number] 00:00:00 Test Item Value Reference Range Interpretation Comments CULTURE, URINE (test SPECIMEN NUMBER: code = 59591) [id number] COMPREHENSIVE METABOLIC [id number] 00:00:00 Test Item Value Reference Range Interpretation Comments GLUCOSE (test code = 2217) 217 MG/DL BUN (test code = 2208) 13 MG/DL CREATININE (test code = 2214) 0.64 MG/DL eGFR AMER. (test code 128 ML/MIN/1.73 = 37601) eGFR NON- AMER. (test 110 ML/MIN/1.73 code = 34857) CALC BUN/CREAT (test code = 20 RATIO [...] code = 2219) 47 U/L COMPREHENSIVE METABOLIC [id number] 00:00:00 Test Item Value Reference Range Interpretation Comments GLUCOSE (test code = 2217) 217 MG/DL BUN (test code = 2208) 13 MG/DL CREATININE (test code = 2214) 0.64 MG/DL eGFR AMER. (test code 128 ML/MIN/1.73 = 17848) eGFR NON- AMER. (test 110 ML/MIN/1.73 code = 82127) CALC BUN/CREAT (test code = 20 RATIO [...] (test code = 2219) 47 U/L CULTURE, [id number] 00:00:00 Test Item Value Reference Range Interpretation Comments CULTURE, URINE (test SPECIMEN NUMBER: code = 15153) [id number] LIPID [id number] 00:00:00 Test Item Value Reference Range Interpretation Comments CHOLESTEROL (test code = 2210) 220 MG/DL TRIGLYCERIDES (test code = 2232) 873 MG/DL HDL CHOLESTEROL (test code = 30 MG/DL 2220) CALC LDL CHOL (test code = 2237) (NOTE) MG/DL RISK RATIO LDL/HDL (test code = (NOTE) RATIO 2238) LIPID [id number] 00:00:00 Test Item Value Reference Range Interpretation Comments CHOLESTEROL (test code = 2210) 220 MG/DL TRIGLYCERIDES (test code = 2232) 873 MG/DL HDL CHOLESTEROL (test code = 30 MG/DL 2220) CALC LDL CHOL (test code = 2237) (NOTE) MG/DL RISK RATIO LDL/HDL (test code = (NOTE) RATIO 2238) HEMOGLOBIN [id number] 00:00:00 Test Item Value Reference Range Interpretation Comments HEMOGLOBIN A1c (test code = 23956) 10.9 % HEMOGLOBIN [id number] 00:00:00 Test Item Value Reference Range Interpretation Comments HEMOGLOBIN A1c (test code = 12665) 10.9 % HEMOGLOBIN [id number] 00:00:00 Test Item Value Reference Range Interpretation Comments HEMOGLOBIN A1c (test code = 31900) 10.9 % COMPREHENSIVE METABOLIC [id number] 00:00:00 Test Item Value Reference Range Interpretation Comments GLUCOSE (test code = 2217) 217 MG/DL BUN (test code = 2208) 13 MG/DL CREATININE (test code = 2214) 0.64 MG/DL eGFR AMER. (test code 128 ML/MIN/1.73 = 47523) eGFR NON- AMER. (test 110 ML/MIN/1.73 code = 05226) CALC BUN/CREAT (test code = 20 RATIO [...] (test code = 2219) 47 U/L CULTURE, [id number] 00:00:00 Test Item Value Reference Range Interpretation Comments CULTURE, URINE (test SPECIMEN NUMBER: code = 48673) [id number] CULTURE, [id number] 00:00:00 Test Item Value Reference Range Interpretation Comments CULTURE, URINE (test SPECIMEN NUMBER: code = 21383) [id number] COMPREHENSIVE METABOLIC [id number] 00:00:00 Test Item Value Reference Range Interpretation Comments GLUCOSE (test code = 2217) 217 MG/DL BUN (test code = 2208) 13 MG/DL CREATININE (test code = 2214) 0.64 MG/DL eGFR AMER. (test code 128 ML/MIN/1.73 = 37006) eGFR NON- AMER. (test 110 ML/MIN/1.73 code = 89748) CALC BUN/CREAT (test code = 20 RATIO [...] (test code = 2219) 47 U/L LIPID [id number] 00:00:00 Test Item Value Reference Range Interpretation Comments CHOLESTEROL (test code = 2210) 220 MG/DL TRIGLYCERIDES (test code = 2232) 873 MG/DL HDL CHOLESTEROL (test code = 30 MG/DL 2220) CALC LDL CHOL (test code = 2237) (NOTE) MG/DL RISK RATIO LDL/HDL (test code = (NOTE) RATIO 2238) LIPID [id number] 00:00:00 Test Item Value Reference Range Interpretation Comments CHOLESTEROL (test code = 2210) 220 MG/DL TRIGLYCERIDES (test code = 2232) 873 MG/DL HDL CHOLESTEROL (test code = 30 MG/DL 2220) CALC LDL CHOL (test code = 2237) (NOTE) MG/DL RISK RATIO LDL/HDL (test code = (NOTE) RATIO 2238) HEMOGLOBIN [id number] 00:00:00 Test Item Value Reference Range Interpretation Comments HEMOGLOBIN A1c (test code = 30951) 10.9 % HEMOGLOBIN [id number] 00:00:00 Test Item Value Reference Range Interpretation Comments HEMOGLOBIN A1c (test code = 79188) 10.9 % HEMOGLOBIN [id number] 00:00:00 Test Item Value Reference Range Interpretation Comments HEMOGLOBIN A1c (test code = 92779) 10.9 % COMPREHENSIVE METABOLIC [id number] 00:00:00 Test Item Value Reference Range Interpretation Comments GLUCOSE (test code = 2217) 217 MG/DL BUN (test code = 2208) 13 MG/DL CREATININE (test code = 2214) 0.64 MG/DL eGFR AMER. (test code 128 ML/MIN/1.73 = 16519) eGFR NON- AMER. (test 110 ML/MIN/1.73 code = 26191) CALC BUN/CREAT (test code = 20 RATIO [...] (test code = 2219) 47 U/L CULTURE, [id number] 00:00:00 Test Item Value Reference Range Interpretation Comments CULTURE, URINE (test SPECIMEN NUMBER: code = 88800) [id number] CULTURE, [id number] 00:00:00 Test Item Value Reference Range Interpretation Comments CULTURE, URINE (test SPECIMEN NUMBER: code = 59908) [id number] COMPREHENSIVE METABOLIC [id number] 00:00:00 Test Item Value Reference Range Interpretation Comments GLUCOSE (test code = 2217) 217 MG/DL BUN (test code = 2208) 13 MG/DL CREATININE (test code = 2214) 0.64 MG/DL eGFR AMER. (test code 128 ML/MIN/1.73 = 97406) eGFR NON- AMER. (test 110 ML/MIN/1.73 code = 45468) CALC BUN/CREAT (test code = 20 RATIO [...] (test code = 2219) 47 U/L LIPID [id number] 00:00:00 Test Item Value Reference Range Interpretation Comments CHOLESTEROL (test code = 2210) 220 MG/DL TRIGLYCERIDES (test code = 2232) 873 MG/DL HDL CHOLESTEROL (test code = 30 MG/DL 2219) CALC LDL CHOL (test code = 2237) (NOTE) MG/DL RISK RATIO LDL/HDL (test code = (NOTE) RATIO 2238) LIPID [id number] 00:00:00 Test Item Value Reference Range Interpretation Comments CHOLESTEROL (test code = 2210) 220 MG/DL TRIGLYCERIDES (test code = 2232) 873 MG/DL HDL CHOLESTEROL (test code = 30 MG/DL 0) CALC LDL CHOL (test code = 2237) (NOTE) MG/DL RISK RATIO LDL/HDL (test code = (NOTE) RATIO 2238) HEMOGLOBIN [id number] 00:00:00 Test Item Value Reference Range Interpretation Comments HEMOGLOBIN A1c (test code = 17843) 10.9 % HEMOGLOBIN [id number] 00:00:00 Test Item Value Reference Range Interpretation Comments HEMOGLOBIN A1c (test code = 59382) 10.9 % HEMOGLOBIN [id number] 00:00:00 Test Item Value Reference Range Interpretation Comments HEMOGLOBIN A1c (test code = 43533) 10.9 % COMPREHENSIVE METABOLIC [id number] 00:00:00 Test Item Value Reference Range Interpretation Comments GLUCOSE (test code = 2217) 217 MG/DL BUN (test code = 2208) 13 MG/DL CREATININE (test code = 2214) 0.64 MG/DL eGFR AMER. (test code 128 ML/MIN/1.73 = 33636) eGFR NON- AMER. (test 110 ML/MIN/1.73 code = 26932) CALC BUN/CREAT (test code = 20 RATIO [...] code = 2219) 47 U/L COMPREHENSIVE METABOLIC [id number] 00:00:00 Test Item Value Reference Range Interpretation Comments GLUCOSE (test code = 2217) 217 MG/DL BUN (test code = 2208) 13 MG/DL CREATININE (test code = 2214) 0.64 MG/DL eGFR AMER. (test code 128 ML/MIN/1.73 = 52531) eGFR NON- AMER. (test 110 ML/MIN/1.73 code = 22157) CALC BUN/CREAT (test code = 20 RATIO [...] (test code = 2219) 47 U/L CULTURE, [id number] 00:00:00 Test Item Value Reference Range Interpretation Comments CULTURE, URINE (test SPECIMEN NUMBER: code = 93124) [id number] COMPREHENSIVE METABOLIC [id number] 00:00:00 Test Item Value Reference Range Interpretation Comments GLUCOSE (test code = 2217) 217 MG/DL BUN (test code = 2208) 13 MG/DL CREATININE (test code = 2214) 0.64 MG/DL eGFR AMER. (test code 128 ML/MIN/1.73 = 28231) eGFR NON- AMER. (test 110 ML/MIN/1.73 code = 12712) CALC BUN/CREAT (test code = 20 RATIO [...] (test code = 2219) 47 U/L CULTURE, [id number] 00:00:00 Test Item Value Reference Range Interpretation Comments CULTURE, URINE (test SPECIMEN NUMBER: code = 35391) [id number] LIPID [id number] 00:00:00 Test Item Value Reference Range Interpretation Comments CHOLESTEROL (test code = 2210) 220 MG/DL TRIGLYCERIDES (test code = 2232) 873 MG/DL HDL CHOLESTEROL (test code = 30 MG/DL 2220) CALC LDL CHOL (test code = 2237) (NOTE) MG/DL RISK RATIO LDL/HDL (test code = (NOTE) RATIO 2238) LIPID [id number] 00:00:00 Test Item Value Reference Range Interpretation Comments CHOLESTEROL (test code = 2210) 220 MG/DL TRIGLYCERIDES (test code = 2232) 873 MG/DL HDL CHOLESTEROL (test code = 30 MG/DL 2220) CALC LDL CHOL (test code = 2237) (NOTE) MG/DL RISK RATIO LDL/HDL (test code = (NOTE) RATIO 2238) HEMOGLOBIN [id number] 00:00:00 Test Item Value Reference Range Interpretation Comments HEMOGLOBIN A1c (test code = 19308) 10.9 % HEMOGLOBIN [id number] 00:00:00 Test Item Value Reference Range Interpretation Comments HEMOGLOBIN A1c (test code = 11634) 10.9 % HEMOGLOBIN [id number] 00:00:00 Test Item Value Reference Range Interpretation Comments HEMOGLOBIN A1c (test code = 63744) 10.9 % CULTURE, [id number] 00:00:00 Test Item Value Reference Range Interpretation Comments CULTURE, URINE (test SPECIMEN NUMBER: code = 20800) [id number] LIPID [id number] 00:00:00 Test Item Value Reference Range Interpretation Comments CHOLESTEROL (test code = 2210) 220 MG/DL TRIGLYCERIDES (test code = 2232) 873 MG/DL HDL CHOLESTEROL (test code = 30 MG/DL 2219) CALC LDL CHOL (test code = 2237) (NOTE) MG/DL RISK RATIO LDL/HDL (test code = (NOTE) RATIO 2238) HEMOGLOBIN [id number] 00:00:00 Test Item Value Reference Range Interpretation Comments HEMOGLOBIN A1c (test code = 10479) 10.9 % HEMOGLOBIN [id number] 00:00:00 Test Item Value Reference Range Interpretation Comments HEMOGLOBIN A1c (test code = 91014) 10.9 % CULTURE, [id number] 00:00:00 Test Item Value Reference Range Interpretation Comments CULTURE, URINE (test SPECIMEN NUMBER: code = 82863) [id number] COMPREHENSIVE METABOLIC [id number] 00:00:00 Test Item Value Reference Range Interpretation Comments GLUCOSE (test code = 2217) 217 MG/DL BUN (test code = 2208) 13 MG/DL CREATININE (test code = 2214) 0.64 MG/DL eGFR AMER. (test code 128 ML/MIN/1.73 = 93859) eGFR NON- AMER. (test 110 ML/MIN/1.73 code = 92058) CALC BUN/CREAT (test code = 20 RATIO [...] (test code = 2219) 47 U/L CULTURE, [id number] 00:00:00 Test Item Value Reference Range Interpretation Comments CULTURE, URINE (test SPECIMEN NUMBER: code = 04497) [id number] COMPREHENSIVE METABOLIC [id number] 00:00:00 Test Item Value Reference Range Interpretation Comments GLUCOSE (test code = 2217) 217 MG/DL BUN (test code = 2208) 13 MG/DL CREATININE (test code = 2214) 0.64 MG/DL eGFR AMER. (test code 128 ML/MIN/1.73 = 65193) eGFR NON- AMER. (test 110 ML/MIN/1.73 code = 02621) CALC BUN/CREAT (test code = 20 RATIO [...] (test code = 2219) 47 U/L LIPID [id number] 00:00:00 Test Item Value Reference Range Interpretation Comments CHOLESTEROL (test code = 2210) 220 MG/DL TRIGLYCERIDES (test code = 2232) 873 MG/DL HDL CHOLESTEROL (test code = 30 MG/DL 2220) CALC LDL CHOL (test code = 2237) (NOTE) MG/DL RISK RATIO LDL/HDL (test code = (NOTE) RATIO 2238) LIPID [id number] 00:00:00 Test Item Value Reference Range Interpretation Comments CHOLESTEROL (test code = 2210) 220 MG/DL TRIGLYCERIDES (test code = 2232) 873 MG/DL HDL CHOLESTEROL (test code = 30 MG/DL 2220) CALC LDL CHOL (test code = 2237) (NOTE) MG/DL RISK RATIO LDL/HDL (test code = (NOTE) RATIO 2238) HEMOGLOBIN [id number] 00:00:00 Test Item Value Reference Range Interpretation Comments HEMOGLOBIN A1c (test code = 76599) 10.9 % HEMOGLOBIN [id number] 00:00:00 Test Item Value Reference Range Interpretation Comments HEMOGLOBIN A1c (test code = 19266) 10.9 % HEMOGLOBIN [id number] 00:00:00 Test Item Value Reference Range Interpretation Comments HEMOGLOBIN A1c (test code = 25207) 10.9 % CULTURE, [id number] 00:00:00 Test Item Value Reference Range Interpretation Comments CULTURE, URINE (test SPECIMEN NUMBER: code = 08100) [id number] COMPREHENSIVE METABOLIC [id number] 00:00:00 Test Item Value Reference Range Interpretation Comments GLUCOSE (test code = 2217) 217 MG/DL BUN (test code = 2208) 13 MG/DL CREATININE (test code = 2214) 0.64 MG/DL eGFR AMER. (test code 128 ML/MIN/1.73 = 29051) eGFR NON- AMER. (test 110 ML/MIN/1.73 code = 58405) CALC BUN/CREAT (test code = 20 RATIO [...] (test code = 2219) 47 U/L CULTURE, [id number] 00:00:00 Test Item Value Reference Range Interpretation Comments CULTURE, URINE (test SPECIMEN NUMBER: code = 90375) [id number] COMPREHENSIVE METABOLIC [id number] 00:00:00 Test Item Value Reference Range Interpretation Comments GLUCOSE (test code = 2217) 217 MG/DL BUN (test code = 2208) 13 MG/DL CREATININE (test code = 2214) 0.64 MG/DL eGFR AMER. (test code 128 ML/MIN/1.73 = 32092) eGFR NON- AMER. (test 110 ML/MIN/1.73 code = 91293) CALC BUN/CREAT (test code = 20 RATIO [...] (test code = 2219) 47 U/L LIPID [id number] 00:00:00 Test Item Value Reference Range Interpretation Comments CHOLESTEROL (test code = 2210) 220 MG/DL TRIGLYCERIDES (test code = 2232) 873 MG/DL HDL CHOLESTEROL (test code = 30 MG/DL 2220) CALC LDL CHOL (test code = 2237) (NOTE) MG/DL RISK RATIO LDL/HDL (test code = (NOTE) RATIO 2238) LIPID [id number] 00:00:00 Test Item Value Reference Range Interpretation Comments CHOLESTEROL (test code = 2210) 220 MG/DL TRIGLYCERIDES (test code = 2232) 873 MG/DL HDL CHOLESTEROL (test code = 30 MG/DL 2220) CALC LDL CHOL (test code = 2237) (NOTE) MG/DL RISK RATIO LDL/HDL (test code = (NOTE) RATIO 2238) HEMOGLOBIN [id number] 00:00:00 Test Item Value Reference Range Interpretation Comments HEMOGLOBIN A1c (test code = 69834) 10.9 % HEMOGLOBIN [id number] 00:00:00 Test Item Value Reference Range Interpretation Comments HEMOGLOBIN A1c (test code = 17384) 10.9 % HEMOGLOBIN [id number] 00:00:00 Test Item Value Reference Range Interpretation Comments HEMOGLOBIN A1c (test code = 15366) 10.9 % COMPREHENSIVE METABOLIC [id number] 00:00:00 Test Item Value Reference Range Interpretation Comments GLUCOSE (test code = 2217) 217 MG/DL BUN (test code = 2208) 13 MG/DL CREATININE (test code = 2214) 0.64 MG/DL eGFR AMER. (test code 128 ML/MIN/1.73 = 14199) eGFR NON- AMER. (test 110 ML/MIN/1.73 code = 16182) CALC BUN/CREAT (test code = 20 RATIO [...] (test code = 2219) 47 U/L CULTURE, [id number] 00:00:00 Test Item Value Reference Range Interpretation Comments CULTURE, URINE (test SPECIMEN NUMBER: code = 73081) [id number] COMPREHENSIVE METABOLIC [id number] 00:00:00 Test Item Value Reference Range Interpretation Comments GLUCOSE (test code = 2217) 217 MG/DL BUN (test code = 2208) 13 MG/DL CREATININE (test code = 2214) 0.64 MG/DL eGFR AMER. (test code 128 ML/MIN/1.73 = 96614) eGFR NON- AMER. (test 110 ML/MIN/1.73 code = 68738) CALC BUN/CREAT (test code = 20 RATIO [...] (test code = 2219) 47 U/L CULTURE, [id number] 00:00:00 Test Item Value Reference Range Interpretation Comments CULTURE, URINE (test SPECIMEN NUMBER: code = 22960) [id number] LIPID [id number] 00:00:00 Test Item Value Reference Range Interpretation Comments CHOLESTEROL (test code = 2210) 220 MG/DL TRIGLYCERIDES (test code = 2232) 873 MG/DL HDL CHOLESTEROL (test code = 30 MG/DL 2220) CALC LDL CHOL (test code = 2237) (NOTE) MG/DL RISK RATIO LDL/HDL (test code = (NOTE) RATIO 2238) LIPID [id number] 00:00:00 Test Item Value Reference Range Interpretation Comments CHOLESTEROL (test code = 2210) 220 MG/DL TRIGLYCERIDES (test code = 2232) 873 MG/DL HDL CHOLESTEROL (test code = 30 MG/DL 2220) CALC LDL CHOL (test code = 2237) (NOTE) MG/DL RISK RATIO LDL/HDL (test code = (NOTE) RATIO 2238) HEMOGLOBIN [id number] 00:00:00 Test Item Value Reference Range Interpretation Comments HEMOGLOBIN A1c (test code = 37842) 10.9 % HEMOGLOBIN [id number] 00:00:00 Test Item Value Reference Range Interpretation Comments HEMOGLOBIN A1c (test code = 10745) 10.9 % HEMOGLOBIN [id number] 00:00:00 Test Item Value Reference Range Interpretation Comments HEMOGLOBIN A1c (test code = 27113) 10.9 % - XR ANKLE 3 + V [id number] 07:19:00 Patient Name: Marge Franco Unit No: [id number] EXAMS: CPT CODE: [id number] XR ANKLE 3 + V RT 95827 Right ankle 3 views COMMENT: There is [...] MORALES, RT(R) Transcribed D/ (718) [facility] NAME: Marge Franco [address] [facility] PHYS: Judi Cardenas DO : 1980 AGE: 40 SEX: F [place] [address] LOC: TEOFILO PHONE #: [phone] EXAM DATE: 02/13/2020 STATUS: DEP ER FAX #: [phone] RAD #: D/C DT PAGE 1 Signed Report Patient Name: Marge Franco Unit No: [id number] EXAMS: CPT CODE: [id number] XR ANKLE 3 + V RT 43150 (Continued) Orig Print D/T: S: 02/14/2020 (721) [facility] NAME: Marge Franco [address] [place] [address] PHYS: Judi Cardenas DO : 1980 AGE: 40 SEX: F [place] [address] LOC: TEOFILO PHONE #: [phone] EXAM DATE: 02/13/2020 STATUS: DEP ER FAX #: [phone] RAD #: D/C DT PAGE 2 Signed Report- XR FOOT 2 VIEWS [id number] 07:19:00 Patient Name: Marge Franco Unit No: [id number] EXAMS: CPT CODE: [id number] XR FOOT [address] [place] [address] Right ankle 3 views COMMENT: There is [...] MORALES, RT(R) Transcribed D/ (718) Renee [facility] NAME: Marge Franco[address] [facility] PHYS: Judi Cardenas DO : 1980 AGE: 40 SEX: F [place] [id number] NO: [id number] LOC: TEOFILO PHONE #: [phone] EXAM DATE: 02/13/2020 STATUS: DEP ER FAX #: [phone] RAD #: D/C DT PAGE 1 Signed Report Patient Name: Marge Franco Unit No: [id number] EXAMS: CPT CODE: [id number] XR FOOT [address] [place] [address] (Continued) Orig Print D/T: S: 02/14/2020 (721) [facility] NAME: Marge Franco [address] [facility] PHYS: Judi Cardenas DO : 1980 AGE: 40 SEX: F [place] [id number] LOC: TEOFILO PHONE #: [phone] EXAMDATE: 02/13/2020 STATUS: DEP ER FAX #: [phone] RAD #: D/C DT PAGE 2 Signed [id number] 11:17:00 Test Item Value Reference Range Interpretation Comments GLUBED (test code = GLUBED) 119 mg/dL 60-125 N [id number] 08:15:00 Test Item Value Reference Range Interpretation Comments GLUBED (test code = GLUBED) 117 mg/dL 60-125 N Novel Coronavirus 2019 [id number] 17:12:00 Test Item Value Reference Range Interpretation Comments Novel Coronavirus 2019 Inhouse (test Negative Negative code = COVNONPUI) Novel Coronavirus 2019 [id number] 17:12:00 Test Item Value Reference Range Interpretation Comments Novel Coronavirus 2019 Inhouse (test Negative Negative code = COVNONPUI) CBC W/AUTO [id number] 20:19:00 Test Item Value Reference Range Interpretation [...] 0-0 N code = NRBC) BASIC METABOLIC [id number] 19:54:00 Test Item Value Reference Range Interpretation [...] RATE (test code = GFR) mL/mi n/1.73 m8Itedpehof Range:Healthy A dults >90 mL/min/1.73 m2 For Chronic Kid stoney Disease: Stage II Mild Decrease i n GFR 60-90 Stage III Moderate Decrea se in GFR 30-59 Stage IV Severe Decrease in GFR 15-29 Stage V Kidney Failure <15 CREATININE (test code 0.83 mg/dL 0.55-1.30 N = CREAT) CALCIUM (test code = 9.6 mg/dL 8.2-10.1 N CA) - CT LOWER EXTRM W/O C [id number] 14:57:00 Patient Name: MARGE FRANCO Unit No: [id number] EXAMS: CPT CODE: [id number] CT LOWER EXTRM W/[place] [address] [place] SCAN RIGHT ANKLE WITH RECONSTRUCTION DIAGNOSIS: [...] inflammation. 2. Calcaneal enthesophytes are projects into t he distal insertion of the Achilles tendon. Calcaneal [...] with ACR practice standards and adherence to corporate communications specialist's recommendations. INDICATION: RIGHT ANKLE PAIN COMPARISON: None. COMMENT: Findings are as described above. at 1457 Reported and signed by: America Schuler MD CC: Elbert Wilson MD Technologist: Shaan Nassar ,RT(R) CTDI: DLP: Trnscrpt: 01/04/2020 (6106) [email or web address] [facility] NAME: MARGE FRANCO[address] PHYS: Elbert Rodrigues MD : 1980 AGE: 39 SEX: F [place] [id number] LOC: Y.RAD PHONE #: [phone] EXAM DATE: 01/04/2020 STATUS: REG CLI FAX #: [phone] RAD #: D/C DT PAGE 1 Signed Report Patient Name: MARGE FRANCO Unit No: [id number] EXAMS: CPT CODE: [id number] CT LOWER EXTRM W/[place] [address] (Continued) Orig Print D/T: S: 01/04/2020 (1500) [facility] NAME: MARGE FRANCO [address] PHYS: Elbert Rodrigues MD : 1980 AGE: 39 SEX: F [place] [id number] : Y.RAD PHONE #: [phone] EXAM DATE: 01/04/2020 STATUS: REG CLI FAX #: [phone] RAD #: D/C DT PAGE 2 Signed ReportCULTURE, [id number] 00:00:00 Test Item Value Reference Range Interpretation Comments CULTURE, URINE (test SPECIMEN NUMBER: code = 91605) [id number] CULTURE, [id number] 00:00:00 Test Item Value Reference Range Interpretation Comments CULTURE, URINE (test SPECIMEN NUMBER: code = 04673) [id number] CULTURE, [id number] 00:00:00 Test Item Value Reference Range Interpretation Comments CULTURE, URINE (test SPECIMEN NUMBER: code = 60612) [id number] CULTURE, [id number] 00:00:00 Test Item Value Reference Range Interpretation Comments CULTURE, URINE (test SPECIMEN NUMBER: code = 47056) [id number] CULTURE, [id number] 00:00:00 Test Item Value Reference Range Interpretation Comments CULTURE, URINE (test SPECIMEN NUMBER: code = 40045) [id number] CULTURE, [id number] 00:00:00 Test Item Value Reference Range Interpretation Comments CULTURE, URINE (test SPECIMEN NUMBER: code = 35433) [id number] CULTURE, [id number] 00:00:00 Test Item Value Reference Range Interpretation Comments CULTURE, URINE (test SPECIMEN NUMBER: code = 09491) [id number] CULTURE, [id number] 00:00:00 Test Item Value Reference Range Interpretation Comments CULTURE, URINE (test SPECIMEN NUMBER: code = 45242) [id number] CULTURE, [id number] 00:00:00 Test Item Value Reference Range Interpretation Comments CULTURE, URINE (test SPECIMEN NUMBER: code = 37851) [id number] CULTURE, [id number] 00:00:00 Test Item Value Reference Range Interpretation Comments CULTURE, URINE (test SPECIMEN NUMBER: code = 14100) [id number] CULTURE, [id number] 00:00:00 Test Item Value Reference Range Interpretation Comments CULTURE, URINE (test SPECIMEN NUMBER: code = 31919) [id number] CULTURE, [id number] 00:00:00 Test Item Value Reference Range Interpretation Comments CULTURE, URINE (test SPECIMEN NUMBER: code = 52375) [id number] CULTURE, [id number] 00:00:00 Test Item Value Reference Range Interpretation Comments CULTURE, URINE (test SPECIMEN NUMBER: code = 36234) [id number] CULTURE, [id number] 00:00:00 Test Item Value Reference Range Interpretation Comments CULTURE, URINE (test SPECIMEN NUMBER: code = 41666) [id number] CULTURE, [id number] 00:00:00 Test Item Value Reference Range Interpretation Comments CULTURE, URINE (test SPECIMEN NUMBER: code = 88023) [id number] CULTURE, [id number] 00:00:00 Test Item Value Reference Range Interpretation Comments CULTURE, URINE (test SPECIMEN NUMBER: code = 13453) [id number] CULTURE, [id number] 00:00:00 Test Item Value Reference Range Interpretation Comments CULTURE, URINE (test SPECIMEN NUMBER: code = 56062) [id number] CULTURE, [id number] 00:00:00 Test Item Value Reference Range Interpretation Comments CULTURE, URINE (test SPECIMEN NUMBER: code = 16208) [id number] CULTURE, [id number] 00:00:00 Test Item Value Reference Range Interpretation Comments CULTURE, URINE (test SPECIMEN NUMBER: code = 69171) [id number] CULTURE, [id number] 00:00:00 Test Item Value Reference Range Interpretation Comments CULTURE, URINE (test SPECIMEN NUMBER: code = 33338) [id number] CULTURE, [id number] 00:00:00 Test Item Value Reference Range Interpretation Comments CULTURE, URINE (test SPECIMEN NUMBER: code = 06135) [id number] LIPID [id number] 00:00:00 Test Item Value Reference Range Interpretation Comments CHOLESTEROL (test code = 2210) 354 MG/DL TRIGLYCERIDES (test code = 2232) 2608 MG/DL HDL CHOLESTEROL (test code = 19 MG/DL 2220) CALC LDL CHOL (test code = 2237) NOTE MG/DL RISK RATIO LDL/HDL (test code = (NOTE) RATIO 2238) LIPID [id number] 00:00:00 Test Item Value Reference Range Interpretation Comments CHOLESTEROL (test code = 2210) 354 MG/DL TRIGLYCERIDES (test code = 2232) 2608 MG/DL HDL CHOLESTEROL (test code = 19 MG/DL 2220) CALC LDL CHOL (test code = 2237) NOTE MG/DL RISK RATIO LDL/HDL (test code = (NOTE) RATIO 2238) HEMOGLOBIN [id number] 00:00:00 Test Item Value Reference Range Interpretation Comments HEMOGLOBIN A1c (test code = 37518) 11.5 % HEMOGLOBIN [id number] 00:00:00 Test Item Value Reference Range Interpretation Comments HEMOGLOBIN A1c (test code = 97632) 11.5 % HEMOGLOBIN [id number] 00:00:00 Test Item Value Reference Range Interpretation Comments HEMOGLOBIN A1c (test code = 39551) 11.5 % MICROALBUMIN/CREATININE, RANDOM AND [id number] 00:00:00 Test Item Value Reference Range Interpretation Comments CREATININE, URINE, CONC. (test 92.4 MG/DL code = 2072) ALBUMIN, URINE, RANDOM (test code 158.5 MG/DL = 24444) CALC ALBUMIN/CREAT, RND (test 1715 MG/G code = 30590) MICROALBUMIN/CREATININE, RANDOM AND [id number] 00:00:00 Test Item Value Reference Range Interpretation Comments CREATININE, URINE, CONC. (test 92.4 MG/DL code = 2072) ALBUMIN, URINE, RANDOM (test code 158.5 MG/DL = 60948) CALC ALBUMIN/CREAT, RND (test 1715 MG/G code = 59447) LIPID [id number] 00:00:00 Test Item Value Reference Range Interpretation Comments CHOLESTEROL (test code = 2210) 354 MG/DL TRIGLYCERIDES (test code = 2232) 2608 MG/DL HDL CHOLESTEROL (test code = 19 MG/DL 2220) CALC LDL CHOL (test code = 2237) NOTE MG/DL RISK RATIO LDL/HDL (test code = (NOTE) RATIO 2238) LIPID [id number] 00:00:00 Test Item Value Reference Range Interpretation Comments CHOLESTEROL (test code = 2210) 354 MG/DL TRIGLYCERIDES (test code = 2232) 2608 MG/DL HDL CHOLESTEROL (test code = 19 MG/DL 2220) CALC LDL CHOL (test code = 2237) NOTE MG/DL RISK RATIO LDL/HDL (test code = (NOTE) RATIO 2238) HEMOGLOBIN [id number] 00:00:00 Test Item Value Reference Range Interpretation Comments HEMOGLOBIN A1c (test code = 79950) 11.5 % HEMOGLOBIN [id number] 00:00:00 Test Item Value Reference Range Interpretation Comments HEMOGLOBIN A1c (test code = 76918) 11.5 % HEMOGLOBIN [id number] 00:00:00 Test Item Value Reference Range Interpretation Comments HEMOGLOBIN A1c (test code = 18676) 11.5 % MICROALBUMIN/CREATININE, RANDOM AND [id number] 00:00:00 Test Item Value Reference Range Interpretation Comments CREATININE, URINE, CONC. (test 92.4 MG/DL code = 2072) ALBUMIN, URINE, RANDOM (test code 158.5 MG/DL = 00562) CALC ALBUMIN/CREAT, RND (test 1715 MG/G code = 37806) MICROALBUMIN/CREATININE, RANDOM AND [id number] 00:00:00 Test Item Value Reference Range Interpretation Comments CREATININE, URINE, CONC. (test 92.4 MG/DL code = 2072) ALBUMIN, URINE, RANDOM (test code 158.5 MG/DL = 84671) CALC ALBUMIN/CREAT, RND (test 1715 MG/G code = 40515) LIPID [id number] 00:00:00 Test Item Value Reference Range Interpretation Comments CHOLESTEROL (test code = 2210) 354 MG/DL TRIGLYCERIDES (test code = 2232) 2608 MG/DL HDL CHOLESTEROL (test code = 19 MG/DL 2220) CALC LDL CHOL (test code = 2237) NOTE MG/DL RISK RATIO LDL/HDL (test code = (NOTE) RATIO 2238) LIPID [id number] 00:00:00 Test Item Value Reference Range Interpretation Comments CHOLESTEROL (test code = 2210) 354 MG/DL TRIGLYCERIDES (test code = 2232) 2608 MG/DL HDL CHOLESTEROL (test code = 19 MG/DL 2220) CALC LDL CHOL (test code = 2237) NOTE MG/DL RISK RATIO LDL/HDL (test code = (NOTE) RATIO 2238) HEMOGLOBIN [id number] 00:00:00 Test Item Value Reference Range Interpretation Comments HEMOGLOBIN A1c (test code = 92462) 11.5 % HEMOGLOBIN [id number] 00:00:00 Test Item Value Reference Range Interpretation Comments HEMOGLOBIN A1c (test code = 91156) 11.5 % HEMOGLOBIN [id number] 00:00:00 Test Item Value Reference Range Interpretation Comments HEMOGLOBIN A1c (test code = 61348) 11.5 % MICROALBUMIN/CREATININE, RANDOM AND [id number] 00:00:00 Test Item Value Reference Range Interpretation Comments CREATININE, URINE, CONC. (test 92.4 MG/DL code = 2072) ALBUMIN, URINE, RANDOM (test code 158.5 MG/DL = 31818) CALC ALBUMIN/CREAT, RND (test 1715 MG/G code = 71762) MICROALBUMIN/CREATININE, RANDOM AND [id number] 00:00:00 Test Item Value Reference Range Interpretation Comments CREATININE, URINE, CONC. (test 92.4 MG/DL code = 2072) ALBUMIN, URINE, RANDOM (test code 158.5 MG/DL = 83152) CALC ALBUMIN/CREAT, RND (test 1715 MG/G code = 35324) LIPID [id number] 00:00:00 Test Item Value Reference Range Interpretation Comments CHOLESTEROL (test code = 2210) 354 MG/DL TRIGLYCERIDES (test code = 2232) 2608 MG/DL HDL CHOLESTEROL (test code = 19 MG/DL 2220) CALC LDL CHOL (test code = 2237) NOTE MG/DL RISK RATIO LDL/HDL (test code = (NOTE) RATIO 2238) LIPID [id number] 00:00:00 Test Item Value Reference Range Interpretation Comments CHOLESTEROL (test code = 2210) 354 MG/DL TRIGLYCERIDES (test code = 2232) 2608 MG/DL HDL CHOLESTEROL (test code = 19 MG/DL 2220) CALC LDL CHOL (test code = 2237) NOTE MG/DL RISK RATIO LDL/HDL (test code = (NOTE) RATIO 2238) HEMOGLOBIN [id number] 00:00:00 Test Item Value Reference Range Interpretation Comments HEMOGLOBIN A1c (test code = 30840) 11.5 % HEMOGLOBIN [id number] 00:00:00 Test Item Value Reference Range Interpretation Comments HEMOGLOBIN A1c (test code = 61739) 11.5 % HEMOGLOBIN [id number] 00:00:00 Test Item Value Reference Range Interpretation Comments HEMOGLOBIN A1c (test code = 25597) 11.5 % MICROALBUMIN/CREATININE, RANDOM AND [id number] 00:00:00 Test Item Value Reference Range Interpretation Comments CREATININE, URINE, CONC. (test 92.4 MG/DL code = 2072) ALBUMIN, URINE, RANDOM (test code 158.5 MG/DL = 44473) CALC ALBUMIN/CREAT, RND (test 1715 MG/G code = 84576) MICROALBUMIN/CREATININE, RANDOM AND [id number] 00:00:00 Test Item Value Reference Range Interpretation Comments CREATININE, URINE, CONC. (test 92.4 MG/DL code = 2072) ALBUMIN, URINE, RANDOM (test code 158.5 MG/DL = 13996) CALC ALBUMIN/CREAT, RND (test 1715 MG/G code = 99195) LIPID [id number] 00:00:00 Test Item Value Reference Range Interpretation Comments CHOLESTEROL (test code = 2210) 354 MG/DL TRIGLYCERIDES (test code = 2232) 2608 MG/DL HDL CHOLESTEROL (test code = 19 MG/DL 2220) CALC LDL CHOL (test code = 2237) NOTE MG/DL RISK RATIO LDL/HDL (test code = (NOTE) RATIO 2238) LIPID [id number] 00:00:00 Test Item Value Reference Range Interpretation Comments CHOLESTEROL (test code = 2210) 354 MG/DL TRIGLYCERIDES (test code = 2232) 2608 MG/DL HDL CHOLESTEROL (test code = 19 MG/DL 2220) CALC LDL CHOL (test code = 2237) NOTE MG/DL RISK RATIO LDL/HDL (test code = (NOTE) RATIO 2238) HEMOGLOBIN [id number] 00:00:00 Test Item Value Reference Range Interpretation Comments HEMOGLOBIN A1c (test code = 70540) 11.5 % HEMOGLOBIN [id number] 00:00:00 Test Item Value Reference Range Interpretation Comments HEMOGLOBIN A1c (test code = 62906) 11.5 % HEMOGLOBIN [id number] 00:00:00 Test Item Value Reference Range Interpretation Comments HEMOGLOBIN A1c (test code = 47622) 11.5 % MICROALBUMIN/CREATININE, RANDOM AND [id number] 00:00:00 Test Item Value Reference Range Interpretation Comments CREATININE, URINE, CONC. (test 92.4 MG/DL code = 2072) ALBUMIN, URINE, RANDOM (test code 158.5 MG/DL = 77968) CALC ALBUMIN/CREAT, RND (test 1715 MG/G code = 18209) MICROALBUMIN/CREATININE, RANDOM AND [id number] 00:00:00 Test Item Value Reference Range Interpretation Comments CREATININE, URINE, CONC. (test 92.4 MG/DL code = 2072) ALBUMIN, URINE, RANDOM (test code 158.5 MG/DL = 17728) CALC ALBUMIN/CREAT, RND (test 1715 MG/G code = 68614) LIPID [id number] 00:00:00 Test Item Value Reference Range Interpretation Comments CHOLESTEROL (test code = 2210) 354 MG/DL TRIGLYCERIDES (test code = 2232) 2608 MG/DL HDL CHOLESTEROL (test code = 19 MG/DL 2220) CALC LDL CHOL (test code = 2237) NOTE MG/DL RISK RATIO LDL/HDL (test code = (NOTE) RATIO 2238) LIPID [id number] 00:00:00 Test Item Value Reference Range Interpretation Comments CHOLESTEROL (test code = 2210) 354 MG/DL TRIGLYCERIDES (test code = 2232) 2608 MG/DL HDL CHOLESTEROL (test code = 19 MG/DL 2220) CALC LDL CHOL (test code = 2237) NOTE MG/DL RISK RATIO LDL/HDL (test code = (NOTE) RATIO 2238) HEMOGLOBIN [id number] 00:00:00 Test Item Value Reference Range Interpretation Comments HEMOGLOBIN A1c (test code = 18104) 11.5 % HEMOGLOBIN [id number] 00:00:00 Test Item Value Reference Range Interpretation Comments HEMOGLOBIN A1c (test code = 41555) 11.5 % HEMOGLOBIN [id number] 00:00:00 Test Item Value Reference Range Interpretation Comments HEMOGLOBIN A1c (test code = 78388) 11.5 % MICROALBUMIN/CREATININE, RANDOM AND [id number] 00:00:00 Test Item Value Reference Range Interpretation Comments CREATININE, URINE, CONC. (test 92.4 MG/DL code = 2072) ALBUMIN, URINE, RANDOM (test code 158.5 MG/DL = 24706) CALC ALBUMIN/CREAT, RND (test 1715 MG/G code = 62336) MICROALBUMIN/CREATININE, RANDOM AND [id number] 00:00:00 Test Item Value Reference Range Interpretation Comments CREATININE, URINE, CONC. (test 92.4 MG/DL code = 2072) ALBUMIN, URINE, RANDOM (test code 158.5 MG/DL = 28809) CALC ALBUMIN/CREAT, RND (test 1715 MG/G code = 88614) LIPID [id number] 00:00:00 Test Item Value Reference Range Interpretation Comments CHOLESTEROL (test code = 2210) 354 MG/DL TRIGLYCERIDES (test code = 2232) 2608 MG/DL HDL CHOLESTEROL (test code = 19 MG/DL 2220) CALC LDL CHOL (test code = 2237) NOTE MG/DL RISK RATIO LDL/HDL (test code = (NOTE) RATIO 2238) LIPID [id number] 00:00:00 Test Item Value Reference Range Interpretation Comments CHOLESTEROL (test code = 2210) 354 MG/DL TRIGLYCERIDES (test code = 2232) 2608 MG/DL HDL CHOLESTEROL (test code = 19 MG/DL 2220) CALC LDL CHOL (test code = 2237) NOTE MG/DL RISK RATIO LDL/HDL (test code = (NOTE) RATIO 2238) HEMOGLOBIN [id number] 00:00:00 Test Item Value Reference Range Interpretation Comments HEMOGLOBIN A1c (test code = 46508) 11.5 % HEMOGLOBIN [id number] 00:00:00 Test Item Value Reference Range Interpretation Comments HEMOGLOBIN A1c (test code = 16811) 11.5 % HEMOGLOBIN [id number] 00:00:00 Test Item Value Reference Range Interpretation Comments HEMOGLOBIN A1c (test code = 29414) 11.5 % MICROALBUMIN/CREATININE, RANDOM AND [id number] 00:00:00 Test Item Value Reference Range Interpretation Comments CREATININE, URINE, CONC. (test 92.4 MG/DL code = 2072) ALBUMIN, URINE, RANDOM (test code 158.5 MG/DL = 53896) CALC ALBUMIN/CREAT, RND (test 1715 MG/G code = 27357) MICROALBUMIN/CREATININE, RANDOM AND [id number] 00:00:00 Test Item Value Reference Range Interpretation Comments CREATININE, URINE, CONC. (test 92.4 MG/DL code = 2072) ALBUMIN, URINE, RANDOM (test code 158.5 MG/DL = 35279) CALC ALBUMIN/CREAT, RND (test 1715 MG/G code = 39338) LIPID [id number] 00:00:00 Test Item Value Reference Range Interpretation Comments CHOLESTEROL (test code = 2210) 354 MG/DL TRIGLYCERIDES (test code = 2232) 2608 MG/DL HDL CHOLESTEROL (test code = 19 MG/DL 2220) CALC LDL CHOL (test code = 2237) NOTE MG/DL RISK RATIO LDL/HDL (test code = (NOTE) RATIO 2238) HEMOGLOBIN [id number] 00:00:00 Test Item Value Reference Range Interpretation Comments HEMOGLOBIN A1c (test code = 25448) 11.5 % HEMOGLOBIN [id number] 00:00:00 Test Item Value Reference Range Interpretation Comments HEMOGLOBIN A1c (test code = 97453) 11.5 % MICROALBUMIN/CREATININE, RANDOM AND [id number] 00:00:00 Test Item Value Reference Range Interpretation Comments CREATININE, URINE, CONC. (test 92.4 MG/DL code = 2072) ALBUMIN, URINE, RANDOM (test code 158.5 MG/DL = 09246) CALC ALBUMIN/CREAT, RND (test 1715 MG/G code = 92160) LIPID [id number] 00:00:00 Test Item Value Reference Range Interpretation Comments CHOLESTEROL (test code = 2210) 354 MG/DL TRIGLYCERIDES (test code = 2232) 2608 MG/DL HDL CHOLESTEROL (test code = 19 MG/DL 2220) CALC LDL CHOL (test code = 2237) NOTE MG/DL RISK RATIO LDL/HDL (test code = (NOTE) RATIO 2238) LIPID [id number] 00:00:00 Test Item Value Reference Range Interpretation Comments CHOLESTEROL (test code = 2210) 354 MG/DL TRIGLYCERIDES (test code = 2232) 2608 MG/DL HDL CHOLESTEROL (test code = 19 MG/DL 2220) CALC LDL CHOL (test code = 2237) NOTE MG/DL RISK RATIO LDL/HDL (test code = (NOTE) RATIO 2238) HEMOGLOBIN [id number] 00:00:00 Test Item Value Reference Range Interpretation Comments HEMOGLOBIN A1c (test code = 52926) 11.5 % HEMOGLOBIN [id number] 00:00:00 Test Item Value Reference Range Interpretation Comments HEMOGLOBIN A1c (test code = 82659) 11.5 % HEMOGLOBIN [id number] 00:00:00 Test Item Value Reference Range Interpretation Comments HEMOGLOBIN A1c (test code = 46130) 11.5 % MICROALBUMIN/CREATININE, RANDOM AND [id number] 00:00:00 Test Item Value Reference Range Interpretation Comments CREATININE, URINE, CONC. (test 92.4 MG/DL code = 2072) ALBUMIN, URINE, RANDOM (test code 158.5 MG/DL = 98966) CALC ALBUMIN/CREAT, RND (test 1715 MG/G code = 88563) MICROALBUMIN/CREATININE, RANDOM AND [id number] 00:00:00 Test Item Value Reference Range Interpretation Comments CREATININE, URINE, CONC. (test 92.4 MG/DL code = 2072) ALBUMIN, URINE, RANDOM (test code 158.5 MG/DL = 26768) CALC ALBUMIN/CREAT, RND (test 1715 MG/G code = 45900) LIPID [id number] 00:00:00 Test Item Value Reference Range Interpretation Comments CHOLESTEROL (test code = 2210) 354 MG/DL TRIGLYCERIDES (test code = 2232) 2608 MG/DL HDL CHOLESTEROL (test code = 19 MG/DL 2220) CALC LDL CHOL (test code = 2237) NOTE MG/DL RISK RATIO LDL/HDL (test code = (NOTE) RATIO 2238) LIPID [id number] 00:00:00 Test Item Value Reference Range Interpretation Comments CHOLESTEROL (test code = 2210) 354 MG/DL TRIGLYCERIDES (test code = 2232) 2608 MG/DL HDL CHOLESTEROL (test code = 19 MG/DL 2220) CALC LDL CHOL (test code = 2237) NOTE MG/DL RISK RATIO LDL/HDL (test code = (NOTE) RATIO 2238) HEMOGLOBIN [id number] 00:00:00 Test Item Value Reference Range Interpretation Comments HEMOGLOBIN A1c (test code = 26675) 11.5 % HEMOGLOBIN [id number] 00:00:00 Test Item Value Reference Range Interpretation Comments HEMOGLOBIN A1c (test code = 43090) 11.5 % HEMOGLOBIN [id number] 00:00:00 Test Item Value Reference Range Interpretation Comments HEMOGLOBIN A1c (test code = 73999) 11.5 % MICROALBUMIN/CREATININE, RANDOM AND [id number] 00:00:00 Test Item Value Reference Range Interpretation Comments CREATININE, URINE, CONC. (test 92.4 MG/DL code = 2072) ALBUMIN, URINE, RANDOM (test code 158.5 MG/DL = 03929) CALC ALBUMIN/CREAT, RND (test 1715 MG/G code = 86978) MICROALBUMIN/CREATININE, RANDOM AND [id number] 00:00:00 Test Item Value Reference Range Interpretation Comments CREATININE, URINE, CONC. (test 92.4 MG/DL code = 2072) ALBUMIN, URINE, RANDOM (test code 158.5 MG/DL = 72790) CALC ALBUMIN/CREAT, RND (test 1715 MG/G code = 71851) LIPID [id number] 00:00:00 Test Item Value Reference Range Interpretation Comments CHOLESTEROL (test code = 2210) 354 MG/DL TRIGLYCERIDES (test code = 2232) 2608 MG/DL HDL CHOLESTEROL (test code = 19 MG/DL 2220) CALC LDL CHOL (test code = 2237) NOTE MG/DL RISK RATIO LDL/HDL (test code = (NOTE) RATIO 2238) LIPID [id number] 00:00:00 Test Item Value Reference Range Interpretation Comments CHOLESTEROL (test code = 2210) 354 MG/DL TRIGLYCERIDES (test code = 2232) 2608 MG/DL HDL CHOLESTEROL (test code = 19 MG/DL 2220) CALC LDL CHOL (test code = 2237) NOTE MG/DL RISK RATIO LDL/HDL (test code = (NOTE) RATIO 2238) HEMOGLOBIN [id number] 00:00:00 Test Item Value Reference Range Interpretation Comments HEMOGLOBIN A1c (test code = 28124) 11.5 % HEMOGLOBIN [id number] 00:00:00 Test Item Value Reference Range Interpretation Comments HEMOGLOBIN A1c (test code = 15847) 11.5 % HEMOGLOBIN [id number] 00:00:00 Test Item Value Reference Range Interpretation Comments HEMOGLOBIN A1c (test code = 24901) 11.5 % MICROALBUMIN/CREATININE, RANDOM AND [id number] 00:00:00 Test Item Value Reference Range Interpretation Comments CREATININE, URINE, CONC. (test 92.4 MG/DL code = 2072) ALBUMIN, URINE, RANDOM (test code 158.5 MG/DL = 44353) CALC ALBUMIN/CREAT, RND (test 1715 MG/G code = 94541) MICROALBUMIN/CREATININE, RANDOM AND [id number] 00:00:00 Test Item Value Reference Range Interpretation Comments CREATININE, URINE, CONC. (test 92.4 MG/DL code = 2072) ALBUMIN, URINE, RANDOM (test code 158.5 MG/DL = 49874) CALC ALBUMIN/CREAT, RND (test 1715 MG/G code = 70062) CULTURE, [id number] 00:00:00 Test Item Value Reference Range Interpretation Comments CULTURE, URINE (test SPECIMEN NUMBER: code = 09501) [id number] CULTURE, [id number] 00:00:00 Test Item Value Reference Range Interpretation Comments CULTURE, URINE (test SPECIMEN NUMBER: code = 06164) [id number] CULTURE, [id number] 00:00:00 Test Item Value Reference Range Interpretation Comments CULTURE, URINE (test SPECIMEN NUMBER: code = 68803) [id number] CULTURE, [id number] 00:00:00 Test Item Value Reference Range Interpretation Comments CULTURE, URINE (test SPECIMEN NUMBER: code = 58033) [id number] CULTURE, [id number] 00:00:00 Test Item Value Reference Range Interpretation Comments CULTURE, URINE (test SPECIMEN NUMBER: code = 00294) [id number] CULTURE, [id number] 00:00:00 Test Item Value Reference Range Interpretation Comments CULTURE, URINE (test SPECIMEN NUMBER: code = 72747) [id number] CULTURE, [id number] 00:00:00 Test Item Value Reference Range Interpretation Comments CULTURE, URINE (test SPECIMEN NUMBER: code = 22268) [id number] CULTURE, [id number] 00:00:00 Test Item Value Reference Range Interpretation Comments CULTURE, URINE (test SPECIMEN NUMBER: code = 95397) [id number] CULTURE, [id number] 00:00:00 Test Item Value Reference Range Interpretation Comments CULTURE, URINE (test SPECIMEN NUMBER: code = 21248) [id number] CULTURE, [id number] 00:00:00 Test Item Value Reference Range Interpretation Comments CULTURE, URINE (test SPECIMEN NUMBER: code = 62755) [id number] CULTURE, [id number] 00:00:00 Test Item Value Reference Range Interpretation Comments CULTURE, URINE (test SPECIMEN NUMBER: code = 05339) [id number] CULTURE, [id number] 00:00:00 Test Item Value Reference Range Interpretation Comments CULTURE, URINE (test SPECIMEN NUMBER: code = 22368) [id number] CULTURE, [id number] 00:00:00 Test Item Value Reference Range Interpretation Comments CULTURE, URINE (test SPECIMEN NUMBER: code = 16786) [id number] CULTURE, [id number] 00:00:00 Test Item Value Reference Range Interpretation Comments CULTURE, URINE (test SPECIMEN NUMBER: code = 42142) [id number] CULTURE, [id number] 00:00:00 Test Item Value Reference Range Interpretation Comments CULTURE, URINE (test SPECIMEN NUMBER: code = 91667) [id number] CULTURE, [id number] 00:00:00 Test Item Value Reference Range Interpretation Comments CULTURE, URINE (test SPECIMEN NUMBER: code = 29510) [id number] CULTURE, [id number] 00:00:00 Test Item Value Reference Range Interpretation Comments CULTURE, URINE (test SPECIMEN NUMBER: code = 88335) [id number] CULTURE, [id number] 00:00:00 Test Item Value Reference Range Interpretation Comments CULTURE, URINE (test SPECIMEN NUMBER: code = 09042) [id number] CULTURE, [id number] 00:00:00 Test Item Value Reference Range Interpretation Comments CULTURE, URINE (test SPECIMEN NUMBER: code = 32705) [id number] CULTURE, [id number] 00:00:00 Test Item Value Reference Range Interpretation Comments CULTURE, URINE (test SPECIMEN NUMBER: code = 85246) [id number] CULTURE, [id number] 00:00:00 Test Item Value Reference Range Interpretation Comments CULTURE, URINE (test SPECIMEN NUMBER: code = 37243) [id number] VAGINAL PATHOGENS DNA [id number] 00:00:00 Test Item Value Reference Range Interpretation Comments ANDIE SPECIES (test code = 54227) POSITIVE G. VAGINALIS (test code = 31704) NEGATIVE T. VAGINALIS (test code = 11687) NEGATIVE VAGINAL PATHOGENS DNA [id number] 00:00:00 Test Item Value Reference Range Interpretation Comments ANDIE SPECIES (test code = 94424) POSITIVE G. VAGINALIS (test code = 02582) NEGATIVE T. VAGINALIS (test code = 20892) NEGATIVE VAGINAL PATHOGENS DNA [id number] 00:00:00 Test Item Value Reference Range Interpretation Comments ANDIE SPECIES (test code = 58040) POSITIVE G. VAGINALIS (test code = 38044) NEGATIVE T. VAGINALIS (test code = 86554) NEGATIVE VAGINAL PATHOGENS DNA [id number] 00:00:00 Test Item Value Reference Range Interpretation Comments ANDIE SPECIES (test code = 23479) POSITIVE G. VAGINALIS (test code = 83898) NEGATIVE T. VAGINALIS (test code = 39326) NEGATIVE VAGINAL PATHOGENS DNA [id number] 00:00:00 Test Item Value Reference Range Interpretation Comments ANDIE SPECIES (test code = 51520) POSITIVE G. VAGINALIS (test code = 78835) NEGATIVE T. VAGINALIS (test code = 48737) NEGATIVE VAGINAL PATHOGENS DNA [id number] 00:00:00 Test Item Value Reference Range Interpretation Comments ANDIE SPECIES (test code = 78753) POSITIVE G. VAGINALIS (test code = 13205) NEGATIVE T. VAGINALIS (test code = 12167) NEGATIVE VAGINAL PATHOGENS DNA [id number] 00:00:00 Test Item Value Reference Range Interpretation Comments ANDIE SPECIES (test code = 28089) POSITIVE G. VAGINALIS (test code = 81705) NEGATIVE T. VAGINALIS (test code = 72535) NEGATIVE VAGINAL PATHOGENS DNA [id number] 00:00:00 Test Item Value Reference Range Interpretation Comments ANDIE SPECIES (test code = 89281) POSITIVE G. VAGINALIS (test code = 69857) NEGATIVE T. VAGINALIS (test code = 81579) NEGATIVE VAGINAL PATHOGENS DNA [id number] 00:00:00 Test Item Value Reference Range Interpretation Comments ANDIE SPECIES (test code = 62872) POSITIVE G. VAGINALIS (test code = 50687) NEGATIVE T. VAGINALIS (test code = 58965) NEGATIVE VAGINAL PATHOGENS DNA [id number] 00:00:00 Test Item Value Reference Range Interpretation Comments ANDIE SPECIES (test code = 28604) POSITIVE G. VAGINALIS (test code = 79210) NEGATIVE T. VAGINALIS (test code = 57199) NEGATIVE VAGINAL PATHOGENS DNA [id number] 00:00:00 Test Item Value Reference Range Interpretation Comments ANDIE SPECIES (test code = 81984) POSITIVE G. VAGINALIS (test code = 70457) NEGATIVE T. VAGINALIS (test code = 45168) NEGATIVE VAGINAL PATHOGENS DNA [id number] 00:00:00 Test Item Value Reference Range Interpretation Comments ANDIE SPECIES (test code = 53823) POSITIVE G. VAGINALIS (test code = 94369) NEGATIVE T. VAGINALIS (test code = 58790) NEGATIVE VAGINAL PATHOGENS DNA [id number] 00:00:00 Test Item Value Reference Range Interpretation Comments ANDIE SPECIES (test code = 94057) POSITIVE G. VAGINALIS (test code = 96609) NEGATIVE T. VAGINALIS (test code = 45576) NEGATIVE VAGINAL PATHOGENS DNA [id number] 00:00:00 Test Item Value Reference Range Interpretation Comments ANDIE SPECIES (test code = 16804) POSITIVE G. VAGINALIS (test code = 67990) NEGATIVE T. VAGINALIS (test code = 60477) NEGATIVE VAGINAL PATHOGENS DNA [id number] 00:00:00 Test Item Value Reference Range Interpretation Comments ANDIE SPECIES (test code = 96520) POSITIVE G. VAGINALIS (test code = 77994) NEGATIVE T. VAGINALIS (test code = 78414) NEGATIVE VAGINAL PATHOGENS DNA [id number] 00:00:00 Test Item Value Reference Range Interpretation Comments ANDIE SPECIES (test code = 27821) POSITIVE G. VAGINALIS (test code = 44112) NEGATIVE T. VAGINALIS (test code = 90446) NEGATIVE VAGINAL PATHOGENS DNA [id number] 00:00:00 Test Item Value Reference Range Interpretation Comments ANDIE SPECIES (test code = 19971) POSITIVE G. VAGINALIS (test code = 15131) NEGATIVE T. VAGINALIS (test code = 81194) NEGATIVE VAGINAL PATHOGENS DNA [id number] 00:00:00 Test Item Value Reference Range Interpretation Comments ANDIE SPECIES (test code = 97079) POSITIVE G. VAGINALIS (test code = 58943) NEGATIVE T. VAGINALIS (test code = 14862) NEGATIVE VAGINAL PATHOGENS DNA [id number] 00:00:00 Test Item Value Reference Range Interpretation Comments ANDIE SPECIES (test code = 80000) POSITIVE G. VAGINALIS (test code = 95625) NEGATIVE T. VAGINALIS (test code = 13037) NEGATIVE VAGINAL PATHOGENS DNA [id number] 00:00:00 Test Item Value Reference Range Interpretation Comments ANDIE SPECIES (test code = 95455) POSITIVE G. VAGINALIS (test code = 55833) NEGATIVE T. VAGINALIS (test code = 25250) NEGATIVE VAGINAL PATHOGENS DNA [id number] 00:00:00 Test Item Value Reference Range Interpretation Comments ANDIE SPECIES (test code = 44947) POSITIVE G. VAGINALIS (test code = 02735) NEGATIVE T. VAGINALIS (test code = 86305) NEGATIVE VAGINAL PATHOGENS DNA [id number] 00:00:00 Test Item Value Reference Range Interpretation Comments ANDIE SPECIES (test code = 27985) NEGATIVE G. VAGINALIS (test code = 02933) NEGATIVE T. VAGINALIS (test code = 05084) NEGATIVE VAGINAL PATHOGENS DNA [id number] 00:00:00 Test Item Value Reference Range Interpretation Comments ANDIE SPECIES (test code = 44445) NEGATIVE G. VAGINALIS (test code = 05443) NEGATIVE T. VAGINALIS (test code = 64343) NEGATIVE VAGINAL PATHOGENS DNA [id number] 00:00:00 Test Item Value Reference Range Interpretation Comments ANDIE SPECIES (test code = 38877) NEGATIVE G. VAGINALIS (test code = 62065) NEGATIVE T. VAGINALIS (test code = 04127) NEGATIVE VAGINAL PATHOGENS DNA [id number] 00:00:00 Test Item Value Reference Range Interpretation Comments ANDIE SPECIES (test code = 29030) NEGATIVE G. VAGINALIS (test code = 86641) NEGATIVE T. VAGINALIS (test code = 79631) NEGATIVE VAGINAL PATHOGENS DNA [id number] 00:00:00 Test Item Value Reference Range Interpretation Comments ANDIE SPECIES (test code = 47092) NEGATIVE G. VAGINALIS (test code = 80836) NEGATIVE T. VAGINALIS (test code = 10903) NEGATIVE VAGINAL PATHOGENS DNA [id number] 00:00:00 Test Item Value Reference Range Interpretation Comments ANDIE SPECIES (test code = 39084) NEGATIVE G. VAGINALIS (test code = 47542) NEGATIVE T. VAGINALIS (test code = 01219) NEGATIVE VAGINAL PATHOGENS DNA [id number] 00:00:00 Test Item Value Reference Range Interpretation Comments ANDIE SPECIES (test code = 66691) NEGATIVE G. VAGINALIS (test code = 93737) NEGATIVE T. VAGINALIS (test code = 01746) NEGATIVE VAGINAL PATHOGENS DNA [id number] 00:00:00 Test Item Value Reference Range Interpretation Comments ANDIE SPECIES (test code = 27579) NEGATIVE G. VAGINALIS (test code = 02955) NEGATIVE T. VAGINALIS (test code = 07414) NEGATIVE VAGINAL PATHOGENS DNA [id number] 00:00:00 Test Item Value Reference Range Interpretation Comments ANDIE SPECIES (test code = 77107) NEGATIVE G. VAGINALIS (test code = 84535) NEGATIVE T. VAGINALIS (test code = 30716) NEGATIVE VAGINAL PATHOGENS DNA [id number] 00:00:00 Test Item Value Reference Range Interpretation Comments ANDIE SPECIES (test code = ) NEGATIVE G. VAGINALIS (test code = 82093) NEGATIVE T. VAGINALIS (test code = 92997) NEGATIVE VAGINAL PATHOGENS DNA [id number] 00:00:00 Test Item Value Reference Range Interpretation Comments ANDIE SPECIES (test code = 93881) NEGATIVE G. VAGINALIS (test code = 70371) NEGATIVE T. VAGINALIS (test code = 90638) NEGATIVE VAGINAL PATHOGENS DNA [id number] 00:00:00 Test Item Value Reference Range Interpretation Comments ANDIE SPECIES (test code = 53121) NEGATIVE G. VAGINALIS (test code = 20653) NEGATIVE T. VAGINALIS (test code = 02791) NEGATIVE VAGINAL PATHOGENS DNA [id number] 00:00:00 Test Item Value Reference Range Interpretation Comments ANDIE SPECIES (test code = 95239) NEGATIVE G. VAGINALIS (test code = 20087) NEGATIVE T. VAGINALIS (test code = 80006) NEGATIVE VAGINAL PATHOGENS DNA [id number] 00:00:00 Test Item Value Reference Range Interpretation Comments ANDIE SPECIES (test code = 84010) NEGATIVE G. VAGINALIS (test code = 62189) NEGATIVE T. VAGINALIS (test code = 13288) NEGATIVE VAGINAL PATHOGENS DNA [id number] 00:00:00 Test Item Value Reference Range Interpretation Comments ANDIE SPECIES (test code = 17763) NEGATIVE G. VAGINALIS (test code = 48309) NEGATIVE T. VAGINALIS (test code = 49120) NEGATIVE VAGINAL PATHOGENS DNA [id number] 00:00:00 Test Item Value Reference Range Interpretation Comments ANDIE SPECIES (test code = 34501) NEGATIVE G. VAGINALIS (test code = 00291) NEGATIVE T. VAGINALIS (test code = 82622) NEGATIVE VAGINAL PATHOGENS DNA [id number] 00:00:00 Test Item Value Reference Range Interpretation Comments ANDIE SPECIES (test code = 11917) NEGATIVE G. VAGINALIS (test code = 14184) NEGATIVE T. VAGINALIS (test code = 34174) NEGATIVE VAGINAL PATHOGENS DNA [id number] 00:00:00 Test Item Value Reference Range Interpretation Comments ANDIE SPECIES (test code = 36520) NEGATIVE G. VAGINALIS (test code = 82597) NEGATIVE T. VAGINALIS (test code = 48863) NEGATIVE VAGINAL PATHOGENS DNA [id number] 00:00:00 Test Item Value Reference Range Interpretation Comments ANDIE SPECIES (test code = 60739) NEGATIVE G. VAGINALIS (test code = 43902) NEGATIVE T. VAGINALIS (test code = 12046) NEGATIVE VAGINAL PATHOGENS DNA [id number] 00:00:00 Test Item Value Reference Range Interpretation Comments ANDIE SPECIES (test code = 85351) NEGATIVE G. VAGINALIS (test code = 40288) NEGATIVE T. VAGINALIS (test code = 89758) NEGATIVE VAGINAL PATHOGENS DNA [id number] 00:00:00 Test Item Value Reference Range Interpretation Comments ANDIE SPECIES (test code = 50658) NEGATIVE G. VAGINALIS (test code = 09927) NEGATIVE T. VAGINALIS (test code = 95874) NEGATIVE VAGINAL PATHOGENS DNA [id number] 00:00:00 Test Item Value Reference Range Interpretation Comments ANDIE SPECIES (test code = 25672) NEGATIVE G. VAGINALIS (test code = 55935) POSITIVE T. VAGINALIS (test code = 42162) NEGATIVE VAGINAL PATHOGENS DNA [id number] 00:00:00 Test Item Value Reference Range Interpretation Comments ANDIE SPECIES (test code = 47253) NEGATIVE G. VAGINALIS (test code = 88148) POSITIVE T. VAGINALIS (test code = 40260) NEGATIVE VAGINAL PATHOGENS DNA [id number] 00:00:00 Test Item Value Reference Range Interpretation Comments ANDIE SPECIES (test code = 95435) NEGATIVE G. VAGINALIS (test code = 18586) POSITIVE T. VAGINALIS (test code = 93646) NEGATIVE VAGINAL PATHOGENS DNA [id number] 00:00:00 Test Item Value Reference Range Interpretation Comments ANDIE SPECIES (test code = 91261) NEGATIVE G. VAGINALIS (test code = 38775) POSITIVE T. VAGINALIS (test code = 45729) NEGATIVE VAGINAL PATHOGENS DNA [id number] 00:00:00 Test Item Value Reference Range Interpretation Comments ANDIE SPECIES (test code = 88951) NEGATIVE G. VAGINALIS (test code = 25255) POSITIVE T. VAGINALIS (test code = 69363) NEGATIVE VAGINAL PATHOGENS DNA [id number] 00:00:00 Test Item Value Reference Range Interpretation Comments ANDIE SPECIES (test code = 27905) NEGATIVE G. VAGINALIS (test code = 42259) POSITIVE T. VAGINALIS (test code = 64762) NEGATIVE VAGINAL PATHOGENS DNA [id number] 00:00:00 Test Item Value Reference Range Interpretation Comments ANDIE SPECIES (test code = 07498) NEGATIVE G. VAGINALIS (test code = 26711) POSITIVE T. VAGINALIS (test code = 06616) NEGATIVE VAGINAL PATHOGENS DNA [id number] 00:00:00 Test Item Value Reference Range Interpretation Comments ANDIE SPECIES (test code = 93300) NEGATIVE G. VAGINALIS (test code = 65195) POSITIVE T. VAGINALIS (test code = 88882) NEGATIVE VAGINAL PATHOGENS DNA [id number] 00:00:00 Test Item Value Reference Range Interpretation Comments ANDIE SPECIES (test code = 93811) NEGATIVE G. VAGINALIS (test code = 35106) POSITIVE T. VAGINALIS (test code = 91555) NEGATIVE VAGINAL PATHOGENS DNA [id number] 00:00:00 Test Item Value Reference Range Interpretation Comments ANDIE SPECIES (test code = 26619) NEGATIVE G. VAGINALIS (test code = 69331) POSITIVE T. VAGINALIS (test code = 24823) NEGATIVE VAGINAL PATHOGENS DNA [id number] 00:00:00 Test Item Value Reference Range Interpretation Comments ANDIE SPECIES (test code = 18467) NEGATIVE G. VAGINALIS (test code = 71911) POSITIVE T. VAGINALIS (test code = 38966) NEGATIVE VAGINAL PATHOGENS DNA [id number] 00:00:00 Test Item Value Reference Range Interpretation Comments ANDIE SPECIES (test code = 66207) NEGATIVE G. VAGINALIS (test code = 15678) POSITIVE T. VAGINALIS (test code = 02372) NEGATIVE VAGINAL PATHOGENS DNA [id number] 00:00:00 Test Item Value Reference Range Interpretation Comments ANDIE SPECIES (test code = 17857) NEGATIVE G. VAGINALIS (test code = 50268) POSITIVE T. VAGINALIS (test code = 97923) NEGATIVE VAGINAL PATHOGENS DNA [id number] 00:00:00 Test Item Value Reference Range Interpretation Comments ANDIE SPECIES (test code = 83170) NEGATIVE G. VAGINALIS (test code = 76139) POSITIVE T. VAGINALIS (test code = 66238) NEGATIVE VAGINAL PATHOGENS DNA [id number] 00:00:00 Test Item Value Reference Range Interpretation Comments ANDIE SPECIES (test code = 87547) NEGATIVE G. VAGINALIS (test code = 04042) POSITIVE T. VAGINALIS (test code = 71055) NEGATIVE VAGINAL PATHOGENS DNA [id number] 00:00:00 Test Item Value Reference Range Interpretation Comments ANDIE SPECIES (test code = 67197) NEGATIVE G. VAGINALIS (test code = 56557) POSITIVE T. VAGINALIS (test code = 64821) NEGATIVE VAGINAL PATHOGENS DNA [id number] 00:00:00 Test Item Value Reference Range Interpretation Comments ANDIE SPECIES (test code = 85469) NEGATIVE G. VAGINALIS (test code = 74738) POSITIVE T. VAGINALIS (test code = 17451) NEGATIVE VAGINAL PATHOGENS DNA [id number] 00:00:00 Test Item Value Reference Range Interpretation Comments ANDIE SPECIES (test code = 37793) NEGATIVE G. VAGINALIS (test code = 05303) POSITIVE T. VAGINALIS (test code = 72275) NEGATIVE VAGINAL PATHOGENS DNA [id number] 00:00:00 Test Item Value Reference Range Interpretation Comments ANDIE SPECIES (test code = 12720) NEGATIVE G. VAGINALIS (test code = 45444) POSITIVE T. VAGINALIS (test code = 21586) NEGATIVE VAGINAL PATHOGENS DNA [id number] 00:00:00 Test Item Value Reference Range Interpretation Comments ANDIE SPECIES (test code = 60038) NEGATIVE G. VAGINALIS (test code = 85857) POSITIVE T. VAGINALIS (test code = 89113) NEGATIVE VAGINAL PATHOGENS DNA [id number] 00:00:00 Test Item Value Reference Range Interpretation Comments ANDIE SPECIES (test code = 76074) NEGATIVE G. VAGINALIS (test code = 16415) POSITIVE T. VAGINALIS (test code = 29506) NEGATIVE COMPREHENSIVE METABOLIC [id number] 00:00:00 Test Item Value Reference Range Interpretation Comments GLUCOSE (test code = 2217) 353 MG/DL BUN (test code = 2208) 27 MG/DL CREATININE (test code = 2214) 0.90 MG/DL eGFR AMER. (test code 92 ML/MIN/1.73 = 31780) eGFR NON- AMER. (test 79 ML/MIN/1.73 code = 29011) CALC BUN/CREAT (test code = 30 RATIO [...] code = 2219) 18 U/L COMPREHENSIVE METABOLIC [id number] 00:00:00 Test Item Value Reference Range Interpretation Comments GLUCOSE (test code = 2217) 353 MG/DL BUN (test code = 2208) 27 MG/DL CREATININE (test code = 2214) 0.90 MG/DL eGFR AMER. (test code 92 ML/MIN/1.73 = 22401) eGFR NON- AMER. (test 79 ML/MIN/1.73 code = 20781) CALC BUN/CREAT (test code = 30 RATIO [...] (test code = 2219) 18 U/L LIPID [id number] 00:00:00 Test Item Value Reference Range Interpretation Comments CHOLESTEROL (test code = 2210) 412 MG/DL TRIGLYCERIDES (test code = 2232) 2520 MG/DL HDL CHOLESTEROL (test code = 16 MG/DL 2220) CALC LDL CHOL (test code = 2237) NOTE MG/DL RISK RATIO LDL/HDL (test code = (NOTE) RATIO 2238) LIPID [id number] 00:00:00 Test Item Value Reference Range Interpretation Comments CHOLESTEROL (test code = 2210) 412 MG/DL TRIGLYCERIDES (test code = 2232) 2520 MG/DL HDL CHOLESTEROL (test code = 16 MG/DL 2220) CALC LDL CHOL (test code = 2237) NOTE MG/DL RISK RATIO LDL/HDL (test code = (NOTE) RATIO 2238) HEMOGLOBIN [id number] 00:00:00 Test Item Value Reference Range Interpretation Comments HEMOGLOBIN A1c (test code = 60774) 10.7 % HEMOGLOBIN [id number] 00:00:00 Test Item Value Reference Range Interpretation Comments HEMOGLOBIN A1c (test code = 49021) 10.7 % HEMOGLOBIN [id number] 00:00:00 Test Item Value Reference Range Interpretation Comments HEMOGLOBIN A1c (test code = 20869) 10.7 % [id number] 00:00:00 Test Item Value Reference Range Interpretation Comments TSH, THIRD GENERATION (test code 0.777 UIU/ML = 2821) [id number] 00:00:00 Test Item Value Reference Range Interpretation Comments TSH, THIRD GENERATION (test code 0.777 UIU/ML = 2821) [id number] 00:00:00 Test Item Value Reference Range Interpretation Comments TSH, THIRD GENERATION (test code 0.777 UIU/ML = 2821) MICROALBUMIN/CREATININE, RANDOM AND [id number] 00:00:00 Test Item Value Reference Range Interpretation Comments CREATININE, URINE, CONC. (test 127.3 MG/DL code = 2072) ALBUMIN, URINE, RANDOM (test code 65.2 MG/DL = 76525) CALC ALBUMIN/CREAT, RND (test 512 MG/G code = 10036) MICROALBUMIN/CREATININE, RANDOM AND [id number] 00:00:00 Test Item Value Reference Range Interpretation Comments CREATININE, URINE, CONC. (test 127.3 MG/DL code = 2072) ALBUMIN, URINE, RANDOM (test code 65.2 MG/DL = 20697) CALC ALBUMIN/CREAT, RND (test 512 MG/G code = 23076) COMPREHENSIVE METABOLIC [id number] 00:00:00 Test Item Value Reference Range Interpretation Comments GLUCOSE (test code = 2217) 353 MG/DL BUN (test code = 2208) 27 MG/DL CREATININE (test code = 2214) 0.90 MG/DL eGFR AMER. (test code 92 ML/MIN/1.73 = 27790) eGFR NON- AMER. (test 79 ML/MIN/1.73 code = 16099) CALC BUN/CREAT (test code = 30 RATIO [...] code = 2219) 18 U/L COMPREHENSIVE METABOLIC [id number] 00:00:00 Test Item Value Reference Range Interpretation Comments GLUCOSE (test code = 2217) 353 MG/DL BUN (test code = 2208) 27 MG/DL CREATININE (test code = 2214) 0.90 MG/DL eGFR AMER. (test code 92 ML/MIN/1.73 = 40362) eGFR NON- AMER. (test 79 ML/MIN/1.73 code = 81196) CALC BUN/CREAT (test code = 30 RATIO [...] (test code = 2219) 18 U/L LIPID [id number] 00:00:00 Test Item Value Reference Range Interpretation Comments CHOLESTEROL (test code = 2210) 412 MG/DL TRIGLYCERIDES (test code = 2232) 2520 MG/DL HDL CHOLESTEROL (test code = 16 MG/DL 2220) CALC LDL CHOL (test code = 2237) NOTE MG/DL RISK RATIO LDL/HDL (test code = (NOTE) RATIO 2238) LIPID [id number] 00:00:00 Test Item Value Reference Range Interpretation Comments CHOLESTEROL (test code = 2210) 412 MG/DL TRIGLYCERIDES (test code = 2232) 2520 MG/DL HDL CHOLESTEROL (test code = 16 MG/DL 2220) CALC LDL CHOL (test code = 2237) NOTE MG/DL RISK RATIO LDL/HDL (test code = (NOTE) RATIO 2238) HEMOGLOBIN [id number] 00:00:00 Test Item Value Reference Range Interpretation Comments HEMOGLOBIN A1c (test code = 57774) 10.7 % HEMOGLOBIN [id number] 00:00:00 Test Item Value Reference Range Interpretation Comments HEMOGLOBIN A1c (test code = 07421) 10.7 % HEMOGLOBIN [id number] 00:00:00 Test Item Value Reference Range Interpretation Comments HEMOGLOBIN A1c (test code = 02642) 10.7 % [id number] 00:00:00 Test Item Value Reference Range Interpretation Comments TSH, THIRD GENERATION (test code 0.777 UIU/ML = 2821) [id number] 00:00:00 Test Item Value Reference Range Interpretation Comments TSH, THIRD GENERATION (test code 0.777 UIU/ML = 2821) [id number] 00:00:00 Test Item Value Reference Range Interpretation Comments TSH, THIRD GENERATION (test code 0.777 UIU/ML = 2821) MICROALBUMIN/CREATININE, RANDOM AND [id number] 00:00:00 Test Item Value Reference Range Interpretation Comments CREATININE, URINE, CONC. (test 127.3 MG/DL code = 2072) ALBUMIN, URINE, RANDOM (test code 65.2 MG/DL = 52795) CALC ALBUMIN/CREAT, RND (test 512 MG/G code = 38966) MICROALBUMIN/CREATININE, RANDOM AND [id number] 00:00:00 Test Item Value Reference Range Interpretation Comments CREATININE, URINE, CONC. (test 127.3 MG/DL code = 2072) ALBUMIN, URINE, RANDOM (test code 65.2 MG/DL = 97262) CALC ALBUMIN/CREAT, RND (test 512 MG/G code = 39478) COMPREHENSIVE METABOLIC [id number] 00:00:00 Test Item Value Reference Range Interpretation Comments GLUCOSE (test code = 2217) 353 MG/DL BUN (test code = 2208) 27 MG/DL CREATININE (test code = 2214) 0.90 MG/DL eGFR AMER. (test code 92 ML/MIN/1.73 = 59872) eGFR NON- AMER. (test 79 ML/MIN/1.73 code = 67795) CALC BUN/CREAT (test code = 30 RATIO [...] code = 2219) 18 U/L COMPREHENSIVE METABOLIC [id number] 00:00:00 Test Item Value Reference Range Interpretation Comments GLUCOSE (test code = 2217) 353 MG/DL BUN (test code = 2208) 27 MG/DL CREATININE (test code = 2214) 0.90 MG/DL eGFR AMER. (test code 92 ML/MIN/1.73 = 93148) eGFR NON- AMER. (test 79 ML/MIN/1.73 code = 76858) CALC BUN/CREAT (test code = 30 RATIO [...] (test code = 2219) 18 U/L LIPID [id number] 00:00:00 Test Item Value Reference Range Interpretation Comments CHOLESTEROL (test code = 2210) 412 MG/DL TRIGLYCERIDES (test code = 2232) 2520 MG/DL HDL CHOLESTEROL (test code = 16 MG/DL 2220) CALC LDL CHOL (test code = 2237) NOTE MG/DL RISK RATIO LDL/HDL (test code = (NOTE) RATIO 2238) LIPID [id number] 00:00:00 Test Item Value Reference Range Interpretation Comments CHOLESTEROL (test code = 2210) 412 MG/DL TRIGLYCERIDES (test code = 2232) 2520 MG/DL HDL CHOLESTEROL (test code = 16 MG/DL 2220) CALC LDL CHOL (test code = 2237) NOTE MG/DL RISK RATIO LDL/HDL (test code = (NOTE) RATIO 2238) HEMOGLOBIN [id number] 00:00:00 Test Item Value Reference Range Interpretation Comments HEMOGLOBIN A1c (test code = 82286) 10.7 % HEMOGLOBIN [id number] 00:00:00 Test Item Value Reference Range Interpretation Comments HEMOGLOBIN A1c (test code = 08086) 10.7 % HEMOGLOBIN [id number] 00:00:00 Test Item Value Reference Range Interpretation Comments HEMOGLOBIN A1c (test code = 10465) 10.7 % [id number] 00:00:00 Test Item Value Reference Range Interpretation Comments TSH, THIRD GENERATION (test code 0.777 UIU/ML = 2821) [id number] 00:00:00 Test Item Value Reference Range Interpretation Comments TSH, THIRD GENERATION (test code 0.777 UIU/ML = 2821) [id number] 00:00:00 Test Item Value Reference Range Interpretation Comments TSH, THIRD GENERATION (test code 0.777 UIU/ML = 2821) MICROALBUMIN/CREATININE, RANDOM AND [id number] 00:00:00 Test Item Value Reference Range Interpretation Comments CREATININE, URINE, CONC. (test 127.3 MG/DL code = 2072) ALBUMIN, URINE, RANDOM (test code 65.2 MG/DL = 42792) CALC ALBUMIN/CREAT, RND (test 512 MG/G code = 39773) MICROALBUMIN/CREATININE, RANDOM AND [id number] 00:00:00 Test Item Value Reference Range Interpretation Comments CREATININE, URINE, CONC. (test 127.3 MG/DL code = 2072) ALBUMIN, URINE, RANDOM (test code 65.2 MG/DL = 34221) CALC ALBUMIN/CREAT, RND (test 512 MG/G code = 81862) COMPREHENSIVE METABOLIC [id number] 00:00:00 Test Item Value Reference Range Interpretation Comments GLUCOSE (test code = 2217) 353 MG/DL BUN (test code = 2208) 27 MG/DL CREATININE (test code = 2214) 0.90 MG/DL eGFR AMER. (test code 92 ML/MIN/1.73 = 37877) eGFR NON- AMER. (test 79 ML/MIN/1.73 code = 00191) CALC BUN/CREAT (test code = 30 RATIO [...] code = 2219) 18 U/L COMPREHENSIVE METABOLIC [id number] 00:00:00 Test Item Value Reference Range Interpretation Comments GLUCOSE (test code = 2217) 353 MG/DL BUN (test code = 2208) 27 MG/DL CREATININE (test code = 2214) 0.90 MG/DL eGFR AMER. (test code 92 ML/MIN/1.73 = 65385) eGFR NON- AMER. (test 79 ML/MIN/1.73 code = 99607) CALC BUN/CREAT (test code = 30 RATIO [...] (test code = 2219) 18 U/L LIPID [id number] 00:00:00 Test Item Value Reference Range Interpretation Comments CHOLESTEROL (test code = 2210) 412 MG/DL TRIGLYCERIDES (test code = 2232) 2520 MG/DL HDL CHOLESTEROL (test code = 16 MG/DL 2220) CALC LDL CHOL (test code = 2237) NOTE MG/DL RISK RATIO LDL/HDL (test code = (NOTE) RATIO 2238) LIPID [id number] 00:00:00 Test Item Value Reference Range Interpretation Comments CHOLESTEROL (test code = 2210) 412 MG/DL TRIGLYCERIDES (test code = 2232) 2520 MG/DL HDL CHOLESTEROL (test code = 16 MG/DL 2220) CALC LDL CHOL (test code = 2237) NOTE MG/DL RISK RATIO LDL/HDL (test code = (NOTE) RATIO 2238) HEMOGLOBIN [id number] 00:00:00 Test Item Value Reference Range Interpretation Comments HEMOGLOBIN A1c (test code = 85568) 10.7 % HEMOGLOBIN [id number] 00:00:00 Test Item Value Reference Range Interpretation Comments HEMOGLOBIN A1c (test code = 24992) 10.7 % HEMOGLOBIN [id number] 00:00:00 Test Item Value Reference Range Interpretation Comments HEMOGLOBIN A1c (test code = 48869) 10.7 % [id number] 00:00:00 Test Item Value Reference Range Interpretation Comments TSH, THIRD GENERATION (test code 0.777 UIU/ML = 2821) [id number] 00:00:00 Test Item Value Reference Range Interpretation Comments TSH, THIRD GENERATION (test code 0.777 UIU/ML = 2821) [id number] 00:00:00 Test Item Value Reference Range Interpretation Comments TSH, THIRD GENERATION (test code 0.777 UIU/ML = 2821) MICROALBUMIN/CREATININE, RANDOM AND [id number] 00:00:00 Test Item Value Reference Range Interpretation Comments CREATININE, URINE, CONC. (test 127.3 MG/DL code = 2072) ALBUMIN, URINE, RANDOM (test code 65.2 MG/DL = 28276) CALC ALBUMIN/CREAT, RND (test 512 MG/G code = 29101) MICROALBUMIN/CREATININE, RANDOM AND [id number] 00:00:00 Test Item Value Reference Range Interpretation Comments CREATININE, URINE, CONC. (test 127.3 MG/DL code = 2072) ALBUMIN, URINE, RANDOM (test code 65.2 MG/DL = 59784) CALC ALBUMIN/CREAT, RND (test 512 MG/G code = 93322) COMPREHENSIVE METABOLIC [id number] 00:00:00 Test Item Value Reference Range Interpretation Comments GLUCOSE (test code = 2217) 353 MG/DL BUN (test code = 2208) 27 MG/DL CREATININE (test code = 2214) 0.90 MG/DL eGFR AMER. (test code 92 ML/MIN/1.73 = 91386) eGFR NON- AMER. (test 79 ML/MIN/1.73 code = 11904) CALC BUN/CREAT (test code = 30 RATIO [...] code = 2219) 18 U/L COMPREHENSIVE METABOLIC [id number] 00:00:00 Test Item Value Reference Range Interpretation Comments GLUCOSE (test code = 2217) 353 MG/DL BUN (test code = 2208) 27 MG/DL CREATININE (test code = 2214) 0.90 MG/DL eGFR AMER. (test code 92 ML/MIN/1.73 = 83410) eGFR NON- AMER. (test 79 ML/MIN/1.73 code = 44099) CALC BUN/CREAT (test code = 30 RATIO [...] (test code = 2219) 18 U/L LIPID [id number] 00:00:00 Test Item Value Reference Range Interpretation Comments CHOLESTEROL (test code = 2210) 412 MG/DL TRIGLYCERIDES (test code = 2232) 2520 MG/DL HDL CHOLESTEROL (test code = 16 MG/DL 2220) CALC LDL CHOL (test code = 2237) NOTE MG/DL RISK RATIO LDL/HDL (test code = (NOTE) RATIO 2238) LIPID [id number] 00:00:00 Test Item Value Reference Range Interpretation Comments CHOLESTEROL (test code = 2210) 412 MG/DL TRIGLYCERIDES (test code = 2232) 2520 MG/DL HDL CHOLESTEROL (test code = 16 MG/DL 2220) CALC LDL CHOL (test code = 2237) NOTE MG/DL RISK RATIO LDL/HDL (test code = (NOTE) RATIO 2238) HEMOGLOBIN [id number] 00:00:00 Test Item Value Reference Range Interpretation Comments HEMOGLOBIN A1c (test code = 79243) 10.7 % HEMOGLOBIN [id number] 00:00:00 Test Item Value Reference Range Interpretation Comments HEMOGLOBIN A1c (test code = 26657) 10.7 % HEMOGLOBIN [id number] 00:00:00 Test Item Value Reference Range Interpretation Comments HEMOGLOBIN A1c (test code = 32375) 10.7 % [id number] 00:00:00 Test Item Value Reference Range Interpretation Comments TSH, THIRD GENERATION (test code 0.777 UIU/ML = 2821) [id number] 00:00:00 Test Item Value Reference Range Interpretation Comments TSH, THIRD GENERATION (test code 0.777 UIU/ML = 2821) [id number] 00:00:00 Test Item Value Reference Range Interpretation Comments TSH, THIRD GENERATION (test code 0.777 UIU/ML = 2821) MICROALBUMIN/CREATININE, RANDOM AND [id number] 00:00:00 Test Item Value Reference Range Interpretation Comments CREATININE, URINE, CONC. (test 127.3 MG/DL code = 2072) ALBUMIN, URINE, RANDOM (test code 65.2 MG/DL = 33961) CALC ALBUMIN/CREAT, RND (test 512 MG/G code = 98452) MICROALBUMIN/CREATININE, RANDOM AND [id number] 00:00:00 Test Item Value Reference Range Interpretation Comments CREATININE, URINE, CONC. (test 127.3 MG/DL code = 2072) ALBUMIN, URINE, RANDOM (test code 65.2 MG/DL = 23252) CALC ALBUMIN/CREAT, RND (test 512 MG/G code = 04020) COMPREHENSIVE METABOLIC [id number] 00:00:00 Test Item Value Reference Range Interpretation Comments GLUCOSE (test code = 2217) 353 MG/DL BUN (test code = 2208) 27 MG/DL CREATININE (test code = 2214) 0.90 MG/DL eGFR AMER. (test code 92 ML/MIN/1.73 = 44898) eGFR NON- AMER. (test 79 ML/MIN/1.73 code = 51561) CALC BUN/CREAT (test code = 30 RATIO [...] code = 2219) 18 U/L COMPREHENSIVE METABOLIC [id number] 00:00:00 Test Item Value Reference Range Interpretation Comments GLUCOSE (test code = 2217) 353 MG/DL BUN (test code = 2208) 27 MG/DL CREATININE (test code = 2214) 0.90 MG/DL eGFR AMER. (test code 92 ML/MIN/1.73 = 12823) eGFR NON- AMER. (test 79 ML/MIN/1.73 code = 10145) CALC BUN/CREAT (test code = 30 RATIO [...] (test code = 2219) 18 U/L LIPID [id number] 00:00:00 Test Item Value Reference Range Interpretation Comments CHOLESTEROL (test code = 2210) 412 MG/DL TRIGLYCERIDES (test code = 2232) 2520 MG/DL HDL CHOLESTEROL (test code = 16 MG/DL 2220) CALC LDL CHOL (test code = 2237) NOTE MG/DL RISK RATIO LDL/HDL (test code = (NOTE) RATIO 2238) LIPID [id number] 00:00:00 Test Item Value Reference Range Interpretation Comments CHOLESTEROL (test code = 2210) 412 MG/DL TRIGLYCERIDES (test code = 2232) 2520 MG/DL HDL CHOLESTEROL (test code = 16 MG/DL 2220) CALC LDL CHOL (test code = 2237) NOTE MG/DL RISK RATIO LDL/HDL (test code = (NOTE) RATIO 2238) HEMOGLOBIN [id number] 00:00:00 Test Item Value Reference Range Interpretation Comments HEMOGLOBIN A1c (test code = 02517) 10.7 % HEMOGLOBIN [id number] 00:00:00 Test Item Value Reference Range Interpretation Comments HEMOGLOBIN A1c (test code = 08179) 10.7 % HEMOGLOBIN [id number] 00:00:00 Test Item Value Reference Range Interpretation Comments HEMOGLOBIN A1c (test code = 38694) 10.7 % [id number] 00:00:00 Test Item Value Reference Range Interpretation Comments TSH, THIRD GENERATION (test code 0.777 UIU/ML = 2821) [id number] 00:00:00 Test Item Value Reference Range Interpretation Comments TSH, THIRD GENERATION (test code 0.777 UIU/ML = 2821) [id number] 00:00:00 Test Item Value Reference Range Interpretation Comments TSH, THIRD GENERATION (test code 0.777 UIU/ML = 2821) MICROALBUMIN/CREATININE, RANDOM AND [id number] 00:00:00 Test Item Value Reference Range Interpretation Comments CREATININE, URINE, CONC. (test 127.3 MG/DL code = 2072) ALBUMIN, URINE, RANDOM (test code 65.2 MG/DL = 98383) CALC ALBUMIN/CREAT, RND (test 512 MG/G code = 24340) MICROALBUMIN/CREATININE, RANDOM AND [id number] 00:00:00 Test Item Value Reference Range Interpretation Comments CREATININE, URINE, CONC. (test 127.3 MG/DL code = 2072) ALBUMIN, URINE, RANDOM (test code 65.2 MG/DL = 38113) CALC ALBUMIN/CREAT, RND (test 512 MG/G code = 62477) COMPREHENSIVE METABOLIC [id number] 00:00:00 Test Item Value Reference Range Interpretation Comments GLUCOSE (test code = 2217) 353 MG/DL BUN (test code = 2208) 27 MG/DL CREATININE (test code = 2214) 0.90 MG/DL eGFR AMER. (test code 92 ML/MIN/1.73 = 43460) eGFR NON- AMER. (test 79 ML/MIN/1.73 code = 98151) CALC BUN/CREAT (test code = 30 RATIO [...] code = 2219) 18 U/L COMPREHENSIVE METABOLIC [id number] 00:00:00 Test Item Value Reference Range Interpretation Comments GLUCOSE (test code = 2217) 353 MG/DL BUN (test code = 2208) 27 MG/DL CREATININE (test code = 2214) 0.90 MG/DL eGFR AMER. (test code 92 ML/MIN/1.73 = 87628) eGFR NON- AMER. (test 79 ML/MIN/1.73 code = 59059) CALC BUN/CREAT (test code = 30 RATIO [...] (test code = 2219) 18 U/L LIPID [id number] 00:00:00 Test Item Value Reference Range Interpretation Comments CHOLESTEROL (test code = 2210) 412 MG/DL TRIGLYCERIDES (test code = 2232) 2520 MG/DL HDL CHOLESTEROL (test code = 16 MG/DL 2220) CALC LDL CHOL (test code = 2237) NOTE MG/DL RISK RATIO LDL/HDL (test code = (NOTE) RATIO 2238) LIPID [id number] 00:00:00 Test Item Value Reference Range Interpretation Comments CHOLESTEROL (test code = 2210) 412 MG/DL TRIGLYCERIDES (test code = 2232) 2520 MG/DL HDL CHOLESTEROL (test code = 16 MG/DL 2220) CALC LDL CHOL (test code = 2237) NOTE MG/DL RISK RATIO LDL/HDL (test code = (NOTE) RATIO 2238) HEMOGLOBIN [id number] 00:00:00 Test Item Value Reference Range Interpretation Comments HEMOGLOBIN A1c (test code = 06784) 10.7 % HEMOGLOBIN [id number] 00:00:00 Test Item Value Reference Range Interpretation Comments HEMOGLOBIN A1c (test code = 95706) 10.7 % COMPREHENSIVE METABOLIC [id number] 00:00:00 Test Item Value Reference Range Interpretation Comments GLUCOSE (test code = 2217) 353 MG/DL BUN (test code = 2208) 27 MG/DL CREATININE (test code = 2214) 0.90 MG/DL eGFR AMER. (test code 92 ML/MIN/1.73 = 85479) eGFR NON- AMER. (test 79 ML/MIN/1.73 code = 96426) CALC BUN/CREAT (test code = 30 RATIO [...] (test code = 2219) 18 U/L HEMOGLOBIN [id number] 00:00:00 Test Item Value Reference Range Interpretation Comments HEMOGLOBIN A1c (test code = 33074) 10.7 % [id number] 00:00:00 Test Item Value Reference Range Interpretation Comments TSH, THIRD GENERATION (test code 0.777 UIU/ML = 2821) [id number] 00:00:00 Test Item Value Reference Range Interpretation Comments TSH, THIRD GENERATION (test code 0.777 UIU/ML = 2821) [id number] 00:00:00 Test Item Value Reference Range Interpretation Comments TSH, THIRD GENERATION (test code 0.777 UIU/ML = 2821) MICROALBUMIN/CREATININE, RANDOM AND [id number] 00:00:00 Test Item Value Reference Range Interpretation Comments CREATININE, URINE, CONC. (test 127.3 MG/DL code = 2072) ALBUMIN, URINE, RANDOM (test code 65.2 MG/DL = 40115) CALC ALBUMIN/CREAT, RND (test 512 MG/G code = 56661) MICROALBUMIN/CREATININE, RANDOM AND [id number] 00:00:00 Test Item Value Reference Range Interpretation Comments CREATININE, URINE, CONC. (test 127.3 MG/DL code = 2072) ALBUMIN, URINE, RANDOM (test code 65.2 MG/DL = 87612) CALC ALBUMIN/CREAT, RND (test 512 MG/G code = 72622) LIPID [id number] 00:00:00 Test Item Value Reference Range Interpretation Comments CHOLESTEROL (test code = 2210) 412 MG/DL TRIGLYCERIDES (test code = 2232) 2520 MG/DL HDL CHOLESTEROL (test code = 16 MG/DL 2220) CALC LDL CHOL (test code = 2237) NOTE MG/DL RISK RATIO LDL/HDL (test code = (NOTE) RATIO 2238) HEMOGLOBIN [id number] 00:00:00 Test Item Value Reference Range Interpretation Comments HEMOGLOBIN A1c (test code = 99381) 10.7 % HEMOGLOBIN [id number] 00:00:00 Test Item Value Reference Range Interpretation Comments HEMOGLOBIN A1c (test code = 09374) 10.7 % COMPREHENSIVE METABOLIC [id number] 00:00:00 Test Item Value Reference Range Interpretation Comments GLUCOSE (test code = 2217) 353 MG/DL BUN (test code = 2208) 27 MG/DL CREATININE (test code = 2214) 0.90 MG/DL eGFR AMER. (test code 92 ML/MIN/1.73 = 74185) eGFR NON- AMER. (test 79 ML/MIN/1.73 code = 67355) CALC BUN/CREAT (test code = 30 RATIO [...] code = 2219) 18 U/L COMPREHENSIVE METABOLIC [id number] 00:00:00 Test Item Value Reference Range Interpretation Comments GLUCOSE (test code = 2217) 353 MG/DL BUN (test code = 2208) 27 MG/DL CREATININE (test code = 2214) 0.90 MG/DL eGFR AMER. (test code 92 ML/MIN/1.73 = 61753) eGFR NON- AMER. (test 79 ML/MIN/1.73 code = 57794) CALC BUN/CREAT (test code = 30 RATIO [...] ALT (test code = 2219) 18 U/L [id number] 00:00:00 Test Item Value Reference Range Interpretation Comments TSH, THIRD GENERATION (test code 0.777 UIU/ML = 2821) LIPID [id number] 00:00:00 Test Item Value Reference Range Interpretation Comments CHOLESTEROL (test code = 2210) 412 MG/DL TRIGLYCERIDES (test code = 2232) 2520 MG/DL HDL CHOLESTEROL (test code = 16 MG/DL 2220) CALC LDL CHOL (test code = 2237) NOTE MG/DL RISK RATIO LDL/HDL (test code = (NOTE) RATIO 2238) [id number] 00:00:00 Test Item Value Reference Range Interpretation Comments TSH, THIRD GENERATION (test code 0.777 UIU/ML = 2821) LIPID [id number] 00:00:00 Test Item Value Reference Range Interpretation Comments CHOLESTEROL (test code = 2210) 412 MG/DL TRIGLYCERIDES (test code = 2232) 2520 MG/DL HDL CHOLESTEROL (test code = 16 MG/DL 2220) CALC LDL CHOL (test code = 2237) NOTE MG/DL RISK RATIO LDL/HDL (test code = (NOTE) RATIO 2238) HEMOGLOBIN [id number] 00:00:00 Test Item Value Reference Range Interpretation Comments HEMOGLOBIN A1c (test code = 84595) 10.7 % HEMOGLOBIN [id number] 00:00:00 Test Item Value Reference Range Interpretation Comments HEMOGLOBIN A1c (test code = 12530) 10.7 % HEMOGLOBIN [id number] 00:00:00 Test Item Value Reference Range Interpretation Comments HEMOGLOBIN A1c (test code = 58437) 10.7 % [id number] 00:00:00 Test Item Value Reference Range Interpretation Comments TSH, THIRD GENERATION (test code 0.777 UIU/ML = 2821) [id number] 00:00:00 Test Item Value Reference Range Interpretation Comments TSH, THIRD GENERATION (test code 0.777 UIU/ML = 2821) MICROALBUMIN/CREATININE, RANDOM AND [id number] 00:00:00 Test Item Value Reference Range Interpretation Comments CREATININE, URINE, CONC. (test 127.3 MG/DL code = 2072) ALBUMIN, URINE, RANDOM (test code 65.2 MG/DL = 48657) CALC ALBUMIN/CREAT, RND (test 512 MG/G code = 13976) [id number] 00:00:00 Test Item Value Reference Range Interpretation Comments TSH, THIRD GENERATION (test code 0.777 UIU/ML = 2821) MICROALBUMIN/CREATININE, RANDOM AND [id number] 00:00:00 Test Item Value Reference Range Interpretation Comments CREATININE, URINE, CONC. (test 127.3 MG/DL code = 2072) ALBUMIN, URINE, RANDOM (test code 65.2 MG/DL = 90541) CALC ALBUMIN/CREAT, RND (test 512 MG/G code = 44460) MICROALBUMIN/CREATININE, RANDOM AND [id number] 00:00:00 Test Item Value Reference Range Interpretation Comments CREATININE, URINE, CONC. (test 127.3 MG/DL code = 2072) ALBUMIN, URINE, RANDOM (test code 65.2 MG/DL = 35992) CALC ALBUMIN/CREAT, RND (test 512 MG/G code = 70126) COMPREHENSIVE METABOLIC [id number] 00:00:00 Test Item Value Reference Range Interpretation Comments GLUCOSE (test code = 2217) 353 MG/DL BUN (test code = 2208) 27 MG/DL CREATININE (test code = 2214) 0.90 MG/DL eGFR AMER. (test code 92 ML/MIN/1.73 = 56274) eGFR NON- AMER. (test 79 ML/MIN/1.73 code = 27310) CALC BUN/CREAT (test code = 30 RATIO [...] code = 2219) 18 U/L COMPREHENSIVE METABOLIC [id number] 00:00:00 Test Item Value Reference Range Interpretation Comments GLUCOSE (test code = 2217) 353 MG/DL BUN (test code = 2208) 27 MG/DL CREATININE (test code = 2214) 0.90 MG/DL eGFR AMER. (test code 92 ML/MIN/1.73 = 11634) eGFR NON- AMER. (test 79 ML/MIN/1.73 code = 02667) CALC BUN/CREAT (test code = 30 RATIO [...] (test code = 2219) 18 U/L LIPID [id number] 00:00:00 Test Item Value Reference Range Interpretation Comments CHOLESTEROL (test code = 2210) 412 MG/DL TRIGLYCERIDES (test code = 2232) 2520 MG/DL HDL CHOLESTEROL (test code = 16 MG/DL 2220) CALC LDL CHOL (test code = 2237) NOTE MG/DL RISK RATIO LDL/HDL (test code = (NOTE) RATIO 2238) LIPID [id number] 00:00:00 Test Item Value Reference Range Interpretation Comments CHOLESTEROL (test code = 2210) 412 MG/DL TRIGLYCERIDES (test code = 2232) 2520 MG/DL HDL CHOLESTEROL (test code = 16 MG/DL 2220) CALC LDL CHOL (test code = 2237) NOTE MG/DL RISK RATIO LDL/HDL (test code = (NOTE) RATIO 2238) HEMOGLOBIN [id number] 00:00:00 Test Item Value Reference Range Interpretation Comments HEMOGLOBIN A1c (test code = 25207) 10.7 % HEMOGLOBIN [id number] 00:00:00 Test Item Value Reference Range Interpretation Comments HEMOGLOBIN A1c (test code = 37908) 10.7 % HEMOGLOBIN [id number] 00:00:00 Test Item Value Reference Range Interpretation Comments HEMOGLOBIN A1c (test code = 25792) 10.7 % [id number] 00:00:00 Test Item Value Reference Range Interpretation Comments TSH, THIRD GENERATION (test code 0.777 UIU/ML = 2821) [id number] 00:00:00 Test Item Value Reference Range Interpretation Comments TSH, THIRD GENERATION (test code 0.777 UIU/ML = 2821) [id number] 00:00:00 Test Item Value Reference Range Interpretation Comments TSH, THIRD GENERATION (test code 0.777 UIU/ML = 2821) MICROALBUMIN/CREATININE, RANDOM AND [id number] 00:00:00 Test Item Value Reference Range Interpretation Comments CREATININE, URINE, CONC. (test 127.3 MG/DL code = 2072) ALBUMIN, URINE, RANDOM (test code 65.2 MG/DL = 98336) CALC ALBUMIN/CREAT, RND (test 512 MG/G code = 90416) MICROALBUMIN/CREATININE, RANDOM AND [id number] 00:00:00 Test Item Value Reference Range Interpretation Comments CREATININE, URINE, CONC. (test 127.3 MG/DL code = 2072) ALBUMIN, URINE, RANDOM (test code 65.2 MG/DL = 64841) CALC ALBUMIN/CREAT, RND (test 512 MG/G code = 57850) COMPREHENSIVE METABOLIC [id number] 00:00:00 Test Item Value Reference Range Interpretation Comments GLUCOSE (test code = 2217) 353 MG/DL BUN (test code = 2208) 27 MG/DL CREATININE (test code = 2214) 0.90 MG/DL eGFR AMER. (test code 92 ML/MIN/1.73 = 69298) eGFR NON- AMER. (test 79 ML/MIN/1.73 code = 08816) CALC BUN/CREAT (test code = 30 RATIO [...] code = 2219) 18 U/L COMPREHENSIVE METABOLIC [id number] 00:00:00 Test Item Value Reference Range Interpretation Comments GLUCOSE (test code = 2217) 353 MG/DL BUN (test code = 2208) 27 MG/DL CREATININE (test code = 2214) 0.90 MG/DL eGFR AMER. (test code 92 ML/MIN/1.73 = 40181) eGFR NON- AMER. (test 79 ML/MIN/1.73 code = 59465) CALC BUN/CREAT (test code = 30 RATIO [...] (test code = 2219) 18 U/L LIPID [id number] 00:00:00 Test Item Value Reference Range Interpretation Comments CHOLESTEROL (test code = 2210) 412 MG/DL TRIGLYCERIDES (test code = 2232) 2520 MG/DL HDL CHOLESTEROL (test code = 16 MG/DL 2220) CALC LDL CHOL (test code = 2237) NOTE MG/DL RISK RATIO LDL/HDL (test code = (NOTE) RATIO 2238) LIPID [id number] 00:00:00 Test Item Value Reference Range Interpretation Comments CHOLESTEROL (test code = 2210) 412 MG/DL TRIGLYCERIDES (test code = 2232) 2520 MG/DL HDL CHOLESTEROL (test code = 16 MG/DL 2220) CALC LDL CHOL (test code = 2237) NOTE MG/DL RISK RATIO LDL/HDL (test code = (NOTE) RATIO 2238) HEMOGLOBIN [id number] 00:00:00 Test Item Value Reference Range Interpretation Comments HEMOGLOBIN A1c (test code = 89672) 10.7 % HEMOGLOBIN [id number] 00:00:00 Test Item Value Reference Range Interpretation Comments HEMOGLOBIN A1c (test code = 03804) 10.7 % HEMOGLOBIN [id number] 00:00:00 Test Item Value Reference Range Interpretation Comments HEMOGLOBIN A1c (test code = 11216) 10.7 % [id number] 00:00:00 Test Item Value Reference Range Interpretation Comments TSH, THIRD GENERATION (test code 0.777 UIU/ML = 2821) [id number] 00:00:00 Test Item Value Reference Range Interpretation Comments TSH, THIRD GENERATION (test code 0.777 UIU/ML = 2821) [id number] 00:00:00 Test Item Value Reference Range Interpretation Comments TSH, THIRD GENERATION (test code 0.777 UIU/ML = 2821) MICROALBUMIN/CREATININE, RANDOM AND [id number] 00:00:00 Test Item Value Reference Range Interpretation Comments CREATININE, URINE, CONC. (test 127.3 MG/DL code = 2072) ALBUMIN, URINE, RANDOM (test code 65.2 MG/DL = 41933) CALC ALBUMIN/CREAT, RND (test 512 MG/G code = 76358) MICROALBUMIN/CREATININE, RANDOM AND [id number] 00:00:00 Test Item Value Reference Range Interpretation Comments CREATININE, URINE, CONC. (test 127.3 MG/DL code = 2072) ALBUMIN, URINE, RANDOM (test code 65.2 MG/DL = 49596) CALC ALBUMIN/CREAT, RND (test 512 MG/G code = 82350) CULTURE, [id number] 00:00:00 Test Item Value Reference Range Interpretation Comments CULTURE, URINE (test SPECIMEN NUMBER: code = 59918) [id number] CULTURE, [id number] 00:00:00 Test Item Value Reference Range Interpretation Comments CULTURE, URINE (test SPECIMEN NUMBER: code = 27479) [id number] CULTURE, [id number] 00:00:00 Test Item Value Reference Range Interpretation Comments CULTURE, URINE (test SPECIMEN NUMBER: code = 62378) [id number] CULTURE, [id number] 00:00:00 Test Item Value Reference Range Interpretation Comments CULTURE, URINE (test SPECIMEN NUMBER: code = 96375) [id number] CULTURE, [id number] 00:00:00 Test Item Value Reference Range Interpretation Comments CULTURE, URINE (test SPECIMEN NUMBER: code = 76258) [id number] CULTURE, [id number] 00:00:00 Test Item Value Reference Range Interpretation Comments CULTURE, URINE (test SPECIMEN NUMBER: code = 37843) [id number] CULTURE, [id number] 00:00:00 Test Item Value Reference Range Interpretation Comments CULTURE, URINE (test SPECIMEN NUMBER: code = 14755) [id number] CULTURE, [id number] 00:00:00 Test Item Value Reference Range Interpretation Comments CULTURE, URINE (test SPECIMEN NUMBER: code = 00158) [id number] CULTURE, [id number] 00:00:00 Test Item Value Reference Range Interpretation Comments CULTURE, URINE (test SPECIMEN NUMBER: code = 91673) [id number] CULTURE, [id number] 00:00:00 Test Item Value Reference Range Interpretation Comments CULTURE, URINE (test SPECIMEN NUMBER: code = 47613) [id number] CULTURE, [id number] 00:00:00 Test Item Value Reference Range Interpretation Comments CULTURE, URINE (test SPECIMEN NUMBER: code = 94889) [id number] CULTURE, [id number] 00:00:00 Test Item Value Reference Range Interpretation Comments CULTURE, URINE (test SPECIMEN NUMBER: code = 53041) [id number] CULTURE, [id number] 00:00:00 Test Item Value Reference Range Interpretation Comments CULTURE, URINE (test SPECIMEN NUMBER: code = 49410) [id number] CULTURE, [id number] 00:00:00 Test Item Value Reference Range Interpretation Comments CULTURE, URINE (test SPECIMEN NUMBER: code = 79411) [id number] CULTURE, [id number] 00:00:00 Test Item Value Reference Range Interpretation Comments CULTURE, URINE (test SPECIMEN NUMBER: code = 08666) [id number] CULTURE, [id number] 00:00:00 Test Item Value Reference Range Interpretation Comments CULTURE, URINE (test SPECIMEN NUMBER: code = 95163) [id number] CULTURE, [id number] 00:00:00 Test Item Value Reference Range Interpretation Comments CULTURE, URINE (test SPECIMEN NUMBER: code = 01496) [id number] CULTURE, [id number] 00:00:00 Test Item Value Reference Range Interpretation Comments CULTURE, URINE (test SPECIMEN NUMBER: code = 02046) [id number] CULTURE, [id number] 00:00:00 Test Item Value Reference Range Interpretation Comments CULTURE, URINE (test SPECIMEN NUMBER: code = 33321) [id number] CULTURE, [id number] 00:00:00 Test Item Value Reference Range Interpretation Comments CULTURE, URINE (test SPECIMEN NUMBER: code = 69632) [id number] CULTURE, [id number] 00:00:00 Test Item Value Reference Range Interpretation Comments CULTURE, URINE (test SPECIMEN NUMBER: code = 47917) [id number] VAGINAL PATHOGENS DNA [id number] 00:00:00 Test Item Value Reference Range Interpretation Comments ANDIE SPECIES (test code = ) NEGATIVE G. VAGINALIS (test code = 00393) NEGATIVE T. VAGINALIS (test code = 77541) NEGATIVE VAGINAL PATHOGENS DNA [id number] 00:00:00 Test Item Value Reference Range Interpretation Comments ANDIE SPECIES (test code = 31771) NEGATIVE G. VAGINALIS (test code = 72248) NEGATIVE T. VAGINALIS (test code = 33871) NEGATIVE VAGINAL PATHOGENS DNA [id number] 00:00:00 Test Item Value Reference Range Interpretation Comments ANDIE SPECIES (test code = 06224) NEGATIVE G. VAGINALIS (test code = 34959) NEGATIVE T. VAGINALIS (test code = 54965) NEGATIVE VAGINAL PATHOGENS DNA [id number] 00:00:00 Test Item Value Reference Range Interpretation Comments ANDIE SPECIES (test code = 33319) NEGATIVE G. VAGINALIS (test code = 69724) NEGATIVE T. VAGINALIS (test code = 64682) NEGATIVE VAGINAL PATHOGENS DNA [id number] 00:00:00 Test Item Value Reference Range Interpretation Comments ANDIE SPECIES (test code = 27505) NEGATIVE G. VAGINALIS (test code = 19397) NEGATIVE T. VAGINALIS (test code = 83457) NEGATIVE VAGINAL PATHOGENS DNA [id number] 00:00:00 Test Item Value Reference Range Interpretation Comments ANDIE SPECIES (test code = 95741) NEGATIVE G. VAGINALIS (test code = 35363) NEGATIVE T. VAGINALIS (test code = 99890) NEGATIVE VAGINAL PATHOGENS DNA [id number] 00:00:00 Test Item Value Reference Range Interpretation Comments ANDIE SPECIES (test code = 75008) NEGATIVE G. VAGINALIS (test code = 84259) NEGATIVE T. VAGINALIS (test code = 63116) NEGATIVE VAGINAL PATHOGENS DNA [id number] 00:00:00 Test Item Value Reference Range Interpretation Comments ANDIE SPECIES (test code = 11243) NEGATIVE G. VAGINALIS (test code = 94300) NEGATIVE T. VAGINALIS (test code = 03695) NEGATIVE VAGINAL PATHOGENS DNA [id number] 00:00:00 Test Item Value Reference Range Interpretation Comments ANDIE SPECIES (test code = 37928) NEGATIVE G. VAGINALIS (test code = 68419) NEGATIVE T. VAGINALIS (test code = 09280) NEGATIVE VAGINAL PATHOGENS DNA [id number] 00:00:00 Test Item Value Reference Range Interpretation Comments ANDIE SPECIES (test code = 51098) NEGATIVE G. VAGINALIS (test code = 60504) NEGATIVE T. VAGINALIS (test code = 09821) NEGATIVE VAGINAL PATHOGENS DNA [id number] 00:00:00 Test Item Value Reference Range Interpretation Comments ANDIE SPECIES (test code = 31697) NEGATIVE G. VAGINALIS (test code = 31331) NEGATIVE T. VAGINALIS (test code = 23066) NEGATIVE VAGINAL PATHOGENS DNA [id number] 00:00:00 Test Item Value Reference Range Interpretation Comments ANDIE SPECIES (test code = 64855) NEGATIVE G. VAGINALIS (test code = 49982) NEGATIVE T. VAGINALIS (test code = 55326) NEGATIVE VAGINAL PATHOGENS DNA [id number] 00:00:00 Test Item Value Reference Range Interpretation Comments ANDIE SPECIES (test code = 59637) NEGATIVE G. VAGINALIS (test code = 79222) NEGATIVE T. VAGINALIS (test code = 09055) NEGATIVE VAGINAL PATHOGENS DNA [id number] 00:00:00 Test Item Value Reference Range Interpretation Comments ANDIE SPECIES (test code = 79181) NEGATIVE G. VAGINALIS (test code = 04140) NEGATIVE T. VAGINALIS (test code = 63040) NEGATIVE VAGINAL PATHOGENS DNA [id number] 00:00:00 Test Item Value Reference Range Interpretation Comments ANDIE SPECIES (test code = 71574) NEGATIVE G. VAGINALIS (test code = 19358) NEGATIVE T. VAGINALIS (test code = 35586) NEGATIVE VAGINAL PATHOGENS DNA [id number] 00:00:00 Test Item Value Reference Range Interpretation Comments ANDIE SPECIES (test code = 15792) NEGATIVE G. VAGINALIS (test code = 50791) NEGATIVE T. VAGINALIS (test code = 06621) NEGATIVE VAGINAL PATHOGENS DNA [id number] 00:00:00 Test Item Value Reference Range Interpretation Comments ANDIE SPECIES (test code = 47020) NEGATIVE G. VAGINALIS (test code = 95635) NEGATIVE T. VAGINALIS (test code = 59764) NEGATIVE VAGINAL PATHOGENS DNA [id number] 00:00:00 Test Item Value Reference Range Interpretation Comments ANDIE SPECIES (test code = 16540) NEGATIVE G. VAGINALIS (test code = 64209) NEGATIVE T. VAGINALIS (test code = 44388) NEGATIVE VAGINAL PATHOGENS DNA [id number] 00:00:00 Test Item Value Reference Range Interpretation Comments ANDIE SPECIES (test code = 11760) NEGATIVE G. VAGINALIS (test code = 25756) NEGATIVE T. VAGINALIS (test code = 76629) NEGATIVE VAGINAL PATHOGENS DNA [id number] 00:00:00 Test Item Value Reference Range Interpretation Comments ANDIE SPECIES (test code = 61122) NEGATIVE G. VAGINALIS (test code = 98039) NEGATIVE T. VAGINALIS (test code = 25461) NEGATIVE VAGINAL PATHOGENS DNA [id number] 00:00:00 Test Item Value Reference Range Interpretation Comments ANDIE SPECIES (test code = 53361) NEGATIVE G. VAGINALIS (test code = 10226) NEGATIVE T. VAGINALIS (test code = 89632) NEGATIVE COMPREHENSIVE METABOLIC PANEL [ADDED]2018-05-24 00:00:00 Test Item Value Reference Range Interpretation Comments GLUCOSE (test code = 2217) 198 MG/DL BUN (test code = 2208) 18 MG/DL CREATININE (test code = 2214) 0.86 MG/DL eGFR AMER. (test code 98 ML/MIN/1.73 = 96794) eGFR NON- AMER. (test 84 ML/MIN/1.73 code = 60420) CALC BUN/CREAT (test code = 21 RATIO [...] eGFR AMER. (test code 98 ML/MIN/1.73 = 22928) eGFR NON- AMER. (test 84 ML/MIN/1.73 code = 08954) CALC BUN/CREAT (test code = 21 RATIO 2235) SODIUM (test code = 2231) 139 MEQ/L POTASSIUM (test code = 2228) 4.3 MEQ/L CHLORIDE (test code = 2215) 99 MEQ/L CARBON DIOXIDE (test code = 23 MEQ/L 2206) CALCIUM (test code = 2209) 10.0 MG/DL PROTEIN, TOTAL (test code = 7.7 G/DL 9) ALBUMIN (test code = 2201) 4.8 G/DL [...] Interpretation Comments HEMOGLOBIN A1c (test code = 52422) 10.1 % HEMOGLOBIN A1c [ADDED]2018-05-24 00:00:00 Test Item Value Reference Range Interpretation Comments HEMOGLOBIN A1c (test code = 70090) 10.1 % HEMOGLOBIN A1c [ADDED]2018-05-24 00:00:00 Test Item Value Reference Range Interpretation Comments HEMOGLOBIN A1c (test code = 85326) 10.1 % COMPREHENSIVE METABOLIC PANEL [ADDED]2018-05-24 00:00:00 Test Item Value Reference Range Interpretation Comments GLUCOSE (test code = 2217) 198 MG/DL BUN (test code = 2208) 18 MG/DL CREATININE (test code = 2214) 0.86 MG/DL eGFR AMER. (test code 98 ML/MIN/1.73 = 94544) eGFR NON- AMER. (test 84 ML/MIN/1.73 code = 54380) CALC BUN/CREAT (test code = 21 RATIO [...] eGFR AMER. (test code 98 ML/MIN/1.73 = 47638) eGFR NON- AMER. (test 84 ML/MIN/1.73 code = 53085) CALC BUN/CREAT (test code = 21 RATIO [...] Interpretation Comments HEMOGLOBIN A1c (test code = 23797) 10.1 % HEMOGLOBIN A1c [ADDED]2018-05-24 00:00:00 Test Item Value Reference Range Interpretation Comments HEMOGLOBIN A1c (test code = 46417) 10.1 % HEMOGLOBIN A1c [ADDED]2018-05-24 00:00:00 Test Item Value Reference Range Interpretation Comments HEMOGLOBIN A1c (test code = 13837) 10.1 % COMPREHENSIVE METABOLIC PANEL [ADDED]2018-05-24 00:00:00 Test Item Value Reference Range Interpretation Comments GLUCOSE (test code = 2217) 198 MG/DL BUN (test code = 2208) 18 MG/DL CREATININE (test code = 2214) 0.86 MG/DL eGFR AMER. (test code 98 ML/MIN/1.73 = 36760) eGFR NON- AMER. (test 84 ML/MIN/1.73 code = 82984) CALC BUN/CREAT (test code = 21 RATIO [...] eGFR AMER. (test code 98 ML/MIN/1.73 = 53003) eGFR NON- AMER. (test 84 ML/MIN/1.73 code = 82345) CALC BUN/CREAT (test code = 21 RATIO [...] Interpretation Comments HEMOGLOBIN A1c (test code = 81243) 10.1 % HEMOGLOBIN A1c [ADDED]2018-05-24 00:00:00 Test Item Value Reference Range Interpretation Comments HEMOGLOBIN A1c (test code = 57497) 10.1 % HEMOGLOBIN A1c [ADDED]2018-05-24 00:00:00 Test Item Value Reference Range Interpretation Comments HEMOGLOBIN A1c (test code = 51548) 10.1 % COMPREHENSIVE METABOLIC PANEL [ADDED]2018-05-24 00:00:00 Test Item Value Reference Range Interpretation Comments GLUCOSE (test code = 2217) 198 MG/DL BUN (test code = 2208) 18 MG/DL CREATININE (test code = 2214) 0.86 MG/DL eGFR AMER. (test code 98 ML/MIN/1.73 = 75815) eGFR NON- AMER. (test 84 ML/MIN/1.73 code = 30346) CALC BUN/CREAT (test code = 21 RATIO [...] eGFR AMER. (test code 98 ML/MIN/1.73 = 26745) eGFR NON- AMER. (test 84 ML/MIN/1.73 code = 11099) CALC BUN/CREAT (test code = 21 RATIO [...] Interpretation Comments HEMOGLOBIN A1c (test code = 50318) 10.1 % HEMOGLOBIN A1c [ADDED]2018-05-24 00:00:00 Test Item Value Reference Range Interpretation Comments HEMOGLOBIN A1c (test code = 57476) 10.1 % HEMOGLOBIN A1c [ADDED]2018-05-24 00:00:00 Test Item Value Reference Range Interpretation Comments HEMOGLOBIN A1c (test code = 66474) 10.1 % COMPREHENSIVE METABOLIC PANEL [ADDED]2018-05-24 00:00:00 Test Item Value Reference Range Interpretation Comments GLUCOSE (test code = 2217) 198 MG/DL BUN (test code = 2208) 18 MG/DL CREATININE (test code = 2214) 0.86 MG/DL eGFR AMER. (test code 98 ML/MIN/1.73 = 74081) eGFR NON- AMER. (test 84 ML/MIN/1.73 code = 81942) CALC BUN/CREAT (test code = 21 RATIO [...] eGFR AMER. (test code 98 ML/MIN/1.73 = 74203) eGFR NON- AMER. (test 84 ML/MIN/1.73 code = 09423) CALC BUN/CREAT (test code = 21 RATIO [...] Interpretation Comments HEMOGLOBIN A1c (test code = 48219) 10.1 % HEMOGLOBIN A1c [ADDED]2018-05-24 00:00:00 Test Item Value Reference Range Interpretation Comments HEMOGLOBIN A1c (test code = 63450) 10.1 % HEMOGLOBIN A1c [ADDED]2018-05-24 00:00:00 Test Item Value Reference Range Interpretation Comments HEMOGLOBIN A1c (test code = 84231) 10.1 % COMPREHENSIVE METABOLIC PANEL [ADDED]2018-05-24 00:00:00 Test Item Value Reference Range Interpretation Comments GLUCOSE (test code = 2217) 198 MG/DL BUN (test code = 2208) 18 MG/DL CREATININE (test code = 2214) 0.86 MG/DL eGFR AMER. (test code 98 ML/MIN/1.73 = 05411) eGFR NON- AMER. (test 84 ML/MIN/1.73 code = 55221) CALC BUN/CREAT (test code = 21 RATIO [...] eGFR AMER. (test code 98 ML/MIN/1.73 = 05883) eGFR NON- AMER. (test 84 ML/MIN/1.73 code = 97710) CALC BUN/CREAT (test code = 21 RATIO [...] Interpretation Comments HEMOGLOBIN A1c (test code = 36939) 10.1 % HEMOGLOBIN A1c [ADDED]2018-05-24 00:00:00 Test Item Value Reference Range Interpretation Comments HEMOGLOBIN A1c (test code = 75863) 10.1 % HEMOGLOBIN A1c [ADDED]2018-05-24 00:00:00 Test Item Value Reference Range Interpretation Comments HEMOGLOBIN A1c (test code = 15607) 10.1 % COMPREHENSIVE METABOLIC PANEL [ADDED]2018-05-24 00:00:00 Test Item Value Reference Range Interpretation Comments GLUCOSE (test code = 2217) 198 MG/DL BUN (test code = 2208) 18 MG/DL CREATININE (test code = 2214) 0.86 MG/DL eGFR AMER. (test code 98 ML/MIN/1.73 = 87966) eGFR NON- AMER. (test 84 ML/MIN/1.73 code = 88280) CALC BUN/CREAT (test code = 21 RATIO [...] eGFR AMER. (test code 98 ML/MIN/1.73 = 32793) eGFR NON- AMER. (test 84 ML/MIN/1.73 code = 62926) CALC BUN/CREAT (test code = 21 RATIO [...] Interpretation Comments HEMOGLOBIN A1c (test code = 57710) 10.1 % HEMOGLOBIN A1c [ADDED]2018-05-24 00:00:00 Test Item Value Reference Range Interpretation Comments HEMOGLOBIN A1c (test code = 04760) 10.1 % HEMOGLOBIN A1c [ADDED]2018-05-24 00:00:00 Test Item Value Reference Range Interpretation Comments HEMOGLOBIN A1c (test code = 85886) 10.1 % COMPREHENSIVE METABOLIC PANEL [ADDED]2018-05-24 00:00:00 Test Item Value Reference Range Interpretation Comments GLUCOSE (test code = 2217) 198 MG/DL BUN (test code = 2208) 18 MG/DL CREATININE (test code = 2214) 0.86 MG/DL eGFR AMER. (test code 98 ML/MIN/1.73 = 18927) eGFR NON- AMER. (test 84 ML/MIN/1.73 code = 69344) CALC BUN/CREAT (test code = 21 RATIO [...] Interpretation Comments HEMOGLOBIN A1c (test code = 81306) 10.1 % HEMOGLOBIN A1c [ADDED]2018-05-24 00:00:00 Test Item Value Reference Range Interpretation Comments HEMOGLOBIN A1c (test code = 63290) 10.1 % COMPREHENSIVE METABOLIC PANEL [ADDED]2018-05-24 00:00:00 Test Item Value Reference Range Interpretation Comments GLUCOSE (test code = 2217) 198 MG/DL BUN (test code = 2208) 18 MG/DL CREATININE (test code = 2214) 0.86 MG/DL eGFR AMER. (test code 98 ML/MIN/1.73 = 67788) eGFR NON- AMER. (test 84 ML/MIN/1.73 code = 21149) CALC BUN/CREAT (test code = 21 RATIO [...] eGFR AMER. (test code 98 ML/MIN/1.73 = 11420) eGFR NON- AMER. (test 84 ML/MIN/1.73 code = 46943) CALC BUN/CREAT (test code = 21 RATIO [...] Interpretation Comments HEMOGLOBIN A1c (test code = 42403) 10.1 % HEMOGLOBIN A1c [ADDED]2018-05-24 00:00:00 Test Item Value Reference Range Interpretation Comments HEMOGLOBIN A1c (test code = 43692) 10.1 % HEMOGLOBIN A1c [ADDED]2018-05-24 00:00:00 Test Item Value Reference Range Interpretation Comments HEMOGLOBIN A1c (test code = 13959) 10.1 % COMPREHENSIVE METABOLIC PANEL [ADDED]2018-05-24 00:00:00 Test Item Value Reference Range Interpretation Comments GLUCOSE (test code = 2217) 198 MG/DL BUN (test code = 2208) 18 MG/DL CREATININE (test code = 2214) 0.86 MG/DL eGFR AMER. (test code 98 ML/MIN/1.73 = 46745) eGFR NON- AMER. (test 84 ML/MIN/1.73 code = 92332) CALC BUN/CREAT (test code = 21 RATIO [...] eGFR AMER. (test code 98 ML/MIN/1.73 = 23014) eGFR NON- AMER. (test 84 ML/MIN/1.73 code = 75556) CALC BUN/CREAT (test code = 21 RATIO [...] Interpretation Comments HEMOGLOBIN A1c (test code = 85313) 10.1 % HEMOGLOBIN A1c [ADDED]2018-05-24 00:00:00 Test Item Value Reference Range Interpretation Comments HEMOGLOBIN A1c (test code = 08286) 10.1 % HEMOGLOBIN A1c [ADDED]2018-05-24 00:00:00 Test Item Value Reference Range Interpretation Comments HEMOGLOBIN A1c (test code = 33788) 10.1 % COMPREHENSIVE METABOLIC PANEL [ADDED]2018-05-24 00:00:00 Test Item Value Reference Range Interpretation Comments GLUCOSE (test code = 2217) 198 MG/DL BUN (test code = 2208) 18 MG/DL CREATININE (test code = 2214) 0.86 MG/DL eGFR AMER. (test code 98 ML/MIN/1.73 = 91977) eGFR NON- AMER. (test 84 ML/MIN/1.73 code = 24539) CALC BUN/CREAT (test code = 21 RATIO [...] eGFR AMER. (test code 98 ML/MIN/1.73 = 05909) eGFR NON- AMER. (test 84 ML/MIN/1.73 code = 74470) CALC BUN/CREAT (test code = 21 RATIO [...] Interpretation Comments HEMOGLOBIN A1c (test code = 21479) 10.1 % HEMOGLOBIN A1c [ADDED]2018-05-24 00:00:00 Test Item Value Reference Range Interpretation Comments HEMOGLOBIN A1c (test code = 94760) 10.1 % HEMOGLOBIN A1c [ADDED]2018-05-24 00:00:00 Test Item Value Reference Range Interpretation Comments HEMOGLOBIN A1c (test code = 85951) 10.1 % HEMOGLOBIN [id number] 00:00:00 Test Item Value Reference Range Interpretation Comments HEMOGLOBIN A1c (test code = 26445) 8.5 % HEMOGLOBIN [id number] 00:00:00 Test Item Value Reference Range Interpretation Comments HEMOGLOBIN A1c (test code = 46273) 8.5 % HEMOGLOBIN [id number] 00:00:00 Test Item Value Reference Range Interpretation Comments HEMOGLOBIN A1c (test code = 35506) 8.5 % COMPREHENSIVE METABOLIC [id number] 00:00:00 Test Item Value Reference Range Interpretation Comments GLUCOSE (test code = 2217) 131 MG/DL BUN (test code = 2208) 16 MG/DL CREATININE (test code = 2214) 0.71 MG/DL eGFR AMER. (test code 124 ML/MIN/1.73 = 59239) eGFR NON- AMER. (test 107 ML/MIN/1.73 code = 69551) CALC BUN/CREAT (test code = 23 RATIO [...] code = 2219) 33 U/L COMPREHENSIVE METABOLIC [id number] 00:00:00 Test Item Value Reference Range Interpretation Comments GLUCOSE (test code = 2217) 131 MG/DL BUN (test code = 2208) 16 MG/DL CREATININE (test code = 2214) 0.71 MG/DL eGFR AMER. (test code 124 ML/MIN/1.73 = 49538) eGFR NON- AMER. (test 107 ML/MIN/1.73 code = 67970) CALC BUN/CREAT (test code = 23 RATIO [...] (test code = 2219) 33 U/L LIPID [id number] 00:00:00 Test Item Value Reference Range Interpretation Comments CHOLESTEROL (test code = 2210) 201 MG/DL TRIGLYCERIDES (test code = 2232) 1014 MG/DL HDL CHOLESTEROL (test code = 25 MG/DL 2220) CALC LDL CHOL (test code = 2237) NOTE MG/DL RISK RATIO LDL/HDL (test code = (NOTE) RATIO 2238) LIPID [id number] 00:00:00 Test Item Value Reference Range Interpretation Comments CHOLESTEROL (test code = 2210) 201 MG/DL TRIGLYCERIDES (test code = 2232) 1014 MG/DL HDL CHOLESTEROL (test code = 25 MG/DL 2220) CALC LDL CHOL (test code = 2237) NOTE MG/DL RISK RATIO LDL/HDL (test code = (NOTE) RATIO 2238) HEMOGLOBIN [id number] 00:00:00 Test Item Value Reference Range Interpretation Comments HEMOGLOBIN A1c (test code = 61798) 8.5 % HEMOGLOBIN [id number] 00:00:00 Test Item Value Reference Range Interpretation Comments HEMOGLOBIN A1c (test code = 10302) 8.5 % HEMOGLOBIN [id number] 00:00:00 Test Item Value Reference Range Interpretation Comments HEMOGLOBIN A1c (test code = 09507) 8.5 % COMPREHENSIVE METABOLIC [id number] 00:00:00 Test Item Value Reference Range Interpretation Comments GLUCOSE (test code = 2217) 131 MG/DL BUN (test code = 2208) 16 MG/DL CREATININE (test code = 2214) 0.71 MG/DL eGFR AMER. (test code 124 ML/MIN/1.73 = 27182) eGFR NON- AMER. (test 107 ML/MIN/1.73 code = 69760) CALC BUN/CREAT (test code = 23 RATIO [...] code = 2219) 33 U/L COMPREHENSIVE METABOLIC [id number] 00:00:00 Test Item Value Reference Range Interpretation Comments GLUCOSE (test code = 2217) 131 MG/DL BUN (test code = 2208) 16 MG/DL CREATININE (test code = 2214) 0.71 MG/DL eGFR AMER. (test code 124 ML/MIN/1.73 = 69023) eGFR NON- AMER. (test 107 ML/MIN/1.73 code = 44760) CALC BUN/CREAT (test code = 23 RATIO [...] (test code = 2219) 33 U/L LIPID [id number] 00:00:00 Test Item Value Reference Range Interpretation Comments CHOLESTEROL (test code = 2210) 201 MG/DL TRIGLYCERIDES (test code = 2232) 1014 MG/DL HDL CHOLESTEROL (test code = 25 MG/DL 2220) CALC LDL CHOL (test code = 2237) NOTE MG/DL RISK RATIO LDL/HDL (test code = (NOTE) RATIO 2238) LIPID [id number] 00:00:00 Test Item Value Reference Range Interpretation Comments CHOLESTEROL (test code = 2210) 201 MG/DL TRIGLYCERIDES (test code = 2232) 1014 MG/DL HDL CHOLESTEROL (test code = 25 MG/DL 2220) CALC LDL CHOL (test code = 2237) NOTE MG/DL RISK RATIO LDL/HDL (test code = (NOTE) RATIO 2238) HEMOGLOBIN [id number] 00:00:00 Test Item Value Reference Range Interpretation Comments HEMOGLOBIN A1c (test code = 98647) 8.5 % HEMOGLOBIN [id number] 00:00:00 Test Item Value Reference Range Interpretation Comments HEMOGLOBIN A1c (test code = 99089) 8.5 % HEMOGLOBIN [id number] 00:00:00 Test Item Value Reference Range Interpretation Comments HEMOGLOBIN A1c (test code = 74647) 8.5 % COMPREHENSIVE METABOLIC [id number] 00:00:00 Test Item Value Reference Range Interpretation Comments GLUCOSE (test code = 2217) 131 MG/DL BUN (test code = 2208) 16 MG/DL CREATININE (test code = 2214) 0.71 MG/DL eGFR AMER. (test code 124 ML/MIN/1.73 = 45349) eGFR NON- AMER. (test 107 ML/MIN/1.73 code = 14619) CALC BUN/CREAT (test code = 23 RATIO [...] code = 2219) 33 U/L COMPREHENSIVE METABOLIC [id number] 00:00:00 Test Item Value Reference Range Interpretation Comments GLUCOSE (test code = 2217) 131 MG/DL BUN (test code = 2208) 16 MG/DL CREATININE (test code = 2214) 0.71 MG/DL eGFR AMER. (test code 124 ML/MIN/1.73 = 24376) eGFR NON- AMER. (test 107 ML/MIN/1.73 code = 79634) CALC BUN/CREAT (test code = 23 RATIO [...] (test code = 2219) 33 U/L LIPID [id number] 00:00:00 Test Item Value Reference Range Interpretation Comments CHOLESTEROL (test code = 2210) 201 MG/DL TRIGLYCERIDES (test code = 2232) 1014 MG/DL HDL CHOLESTEROL (test code = 25 MG/DL 2220) CALC LDL CHOL (test code = 2237) NOTE MG/DL RISK RATIO LDL/HDL (test code = (NOTE) RATIO 2238) LIPID [id number] 00:00:00 Test Item Value Reference Range Interpretation Comments CHOLESTEROL (test code = 2210) 201 MG/DL TRIGLYCERIDES (test code = 2232) 1014 MG/DL HDL CHOLESTEROL (test code = 25 MG/DL 2220) CALC LDL CHOL (test code = 2237) NOTE MG/DL RISK RATIO LDL/HDL (test code = (NOTE) RATIO 2238) HEMOGLOBIN [id number] 00:00:00 Test Item Value Reference Range Interpretation Comments HEMOGLOBIN A1c (test code = 10139) 8.5 % HEMOGLOBIN [id number] 00:00:00 Test Item Value Reference Range Interpretation Comments HEMOGLOBIN A1c (test code = 29972) 8.5 % HEMOGLOBIN [id number] 00:00:00 Test Item Value Reference Range Interpretation Comments HEMOGLOBIN A1c (test code = 82491) 8.5 % COMPREHENSIVE METABOLIC [id number] 00:00:00 Test Item Value Reference Range Interpretation Comments GLUCOSE (test code = 2217) 131 MG/DL BUN (test code = 2208) 16 MG/DL CREATININE (test code = 2214) 0.71 MG/DL eGFR AMER. (test code 124 ML/MIN/1.73 = 01510) eGFR NON- AMER. (test 107 ML/MIN/1.73 code = 50518) CALC BUN/CREAT (test code = 23 RATIO [...] code = 2219) 33 U/L COMPREHENSIVE METABOLIC [id number] 00:00:00 Test Item Value Reference Range Interpretation Comments GLUCOSE (test code = 2217) 131 MG/DL BUN (test code = 2208) 16 MG/DL CREATININE (test code = 2214) 0.71 MG/DL eGFR AMER. (test code 124 ML/MIN/1.73 = 76503) eGFR NON- AMER. (test 107 ML/MIN/1.73 code = 11213) CALC BUN/CREAT (test code = 23 RATIO [...] (test code = 2219) 33 U/L LIPID [id number] 00:00:00 Test Item Value Reference Range Interpretation Comments CHOLESTEROL (test code = 2210) 201 MG/DL TRIGLYCERIDES (test code = 2232) 1014 MG/DL HDL CHOLESTEROL (test code = 25 MG/DL 2220) CALC LDL CHOL (test code = 2237) NOTE MG/DL RISK RATIO LDL/HDL (test code = (NOTE) RATIO 2238) LIPID [id number] 00:00:00 Test Item Value Reference Range Interpretation Comments CHOLESTEROL (test code = 2210) 201 MG/DL TRIGLYCERIDES (test code = 2232) 1014 MG/DL HDL CHOLESTEROL (test code = 25 MG/DL 2220) CALC LDL CHOL (test code = 2237) NOTE MG/DL RISK RATIO LDL/HDL (test code = (NOTE) RATIO 2238) HEMOGLOBIN [id number] 00:00:00 Test Item Value Reference Range Interpretation Comments HEMOGLOBIN A1c (test code = 84026) 8.5 % HEMOGLOBIN [id number] 00:00:00 Test Item Value Reference Range Interpretation Comments HEMOGLOBIN A1c (test code = 85777) 8.5 % HEMOGLOBIN [id number] 00:00:00 Test Item Value Reference Range Interpretation Comments HEMOGLOBIN A1c (test code = 20206) 8.5 % COMPREHENSIVE METABOLIC [id number] 00:00:00 Test Item Value Reference Range Interpretation Comments GLUCOSE (test code = 2217) 131 MG/DL BUN (test code = 2208) 16 MG/DL CREATININE (test code = 2214) 0.71 MG/DL eGFR AMER. (test code 124 ML/MIN/1.73 = 27395) eGFR NON- AMER. (test 107 ML/MIN/1.73 code = 65397) CALC BUN/CREAT (test code = 23 RATIO [...] code = 2219) 33 U/L COMPREHENSIVE METABOLIC [id number] 00:00:00 Test Item Value Reference Range Interpretation Comments GLUCOSE (test code = 2217) 131 MG/DL BUN (test code = 2208) 16 MG/DL CREATININE (test code = 2214) 0.71 MG/DL eGFR AMER. (test code 124 ML/MIN/1.73 = 75402) eGFR NON- AMER. (test 107 ML/MIN/1.73 code = 38885) CALC BUN/CREAT (test code = 23 RATIO [...] (test code = 2219) 33 U/L LIPID [id number] 00:00:00 Test Item Value Reference Range Interpretation Comments CHOLESTEROL (test code = 2210) 201 MG/DL TRIGLYCERIDES (test code = 2232) 1014 MG/DL HDL CHOLESTEROL (test code = 25 MG/DL 2220) CALC LDL CHOL (test code = 2237) NOTE MG/DL RISK RATIO LDL/HDL (test code = (NOTE) RATIO 2238) LIPID [id number] 00:00:00 Test Item Value Reference Range Interpretation Comments CHOLESTEROL (test code = 2210) 201 MG/DL TRIGLYCERIDES (test code = 2232) 1014 MG/DL HDL CHOLESTEROL (test code = 25 MG/DL 2220) CALC LDL CHOL (test code = 2237) NOTE MG/DL RISK RATIO LDL/HDL (test code = (NOTE) RATIO 2238) HEMOGLOBIN [id number] 00:00:00 Test Item Value Reference Range Interpretation Comments HEMOGLOBIN A1c (test code = 81915) 8.5 % HEMOGLOBIN [id number] 00:00:00 Test Item Value Reference Range Interpretation Comments HEMOGLOBIN A1c (test code = 91853) 8.5 % HEMOGLOBIN [id number] 00:00:00 Test Item Value Reference Range Interpretation Comments HEMOGLOBIN A1c (test code = 63701) 8.5 % COMPREHENSIVE METABOLIC [id number] 00:00:00 Test Item Value Reference Range Interpretation Comments GLUCOSE (test code = 2217) 131 MG/DL BUN (test code = 2208) 16 MG/DL CREATININE (test code = 2214) 0.71 MG/DL eGFR AMER. (test code 124 ML/MIN/1.73 = 12958) eGFR NON- AMER. (test 107 ML/MIN/1.73 code = 69478) CALC BUN/CREAT (test code = 23 RATIO [...] code = 2219) 33 U/L COMPREHENSIVE METABOLIC [id number] 00:00:00 Test Item Value Reference Range Interpretation Comments GLUCOSE (test code = 2217) 131 MG/DL BUN (test code = 2208) 16 MG/DL CREATININE (test code = 2214) 0.71 MG/DL eGFR AMER. (test code 124 ML/MIN/1.73 = 89681) eGFR NON- AMER. (test 107 ML/MIN/1.73 code = 23580) CALC BUN/CREAT (test code = 23 RATIO [...] (test code = 2219) 33 U/L LIPID [id number] 00:00:00 Test Item Value Reference Range Interpretation Comments CHOLESTEROL (test code = 2210) 201 MG/DL TRIGLYCERIDES (test code = 2232) 1014 MG/DL HDL CHOLESTEROL (test code = 25 MG/DL 2220) CALC LDL CHOL (test code = 2237) NOTE MG/DL RISK RATIO LDL/HDL (test code = (NOTE) RATIO 2238) LIPID [id number] 00:00:00 Test Item Value Reference Range Interpretation Comments CHOLESTEROL (test code = 2210) 201 MG/DL TRIGLYCERIDES (test code = 2232) 1014 MG/DL HDL CHOLESTEROL (test code = 25 MG/DL 2220) CALC LDL CHOL (test code = 2237) NOTE MG/DL RISK RATIO LDL/HDL (test code = (NOTE) RATIO 2238) HEMOGLOBIN [id number] 00:00:00 Test Item Value Reference Range Interpretation Comments HEMOGLOBIN A1c (test code = 94755) 8.5 % HEMOGLOBIN [id number] 00:00:00 Test Item Value Reference Range Interpretation Comments HEMOGLOBIN A1c (test code = 91522) 8.5 % HEMOGLOBIN [id number] 00:00:00 Test Item Value Reference Range Interpretation Comments HEMOGLOBIN A1c (test code = 61790) 8.5 % COMPREHENSIVE METABOLIC [id number] 00:00:00 Test Item Value Reference Range Interpretation Comments GLUCOSE (test code = 2217) 131 MG/DL BUN (test code = 2208) 16 MG/DL CREATININE (test code = 2214) 0.71 MG/DL eGFR AMER. (test code 124 ML/MIN/1.73 = 97900) eGFR NON- AMER. (test 107 ML/MIN/1.73 code = 61666) CALC BUN/CREAT (test code = 23 RATIO [...] code = 2219) 33 U/L COMPREHENSIVE METABOLIC [id number] 00:00:00 Test Item Value Reference Range Interpretation Comments GLUCOSE (test code = 2217) 131 MG/DL BUN (test code = 2208) 16 MG/DL CREATININE (test code = 2214) 0.71 MG/DL eGFR AMER. (test code 124 ML/MIN/1.73 = 78035) eGFR NON- AMER. (test 107 ML/MIN/1.73 code = 20925) CALC BUN/CREAT (test code = 23 RATIO [...] (test code = 2219) 33 U/L LIPID [id number] 00:00:00 Test Item Value Reference Range Interpretation Comments CHOLESTEROL (test code = 2210) 201 MG/DL TRIGLYCERIDES (test code = 2232) 1014 MG/DL HDL CHOLESTEROL (test code = 25 MG/DL 2220) CALC LDL CHOL (test code = 2237) NOTE MG/DL RISK RATIO LDL/HDL (test code = (NOTE) RATIO 2238) LIPID [id number] 00:00:00 Test Item Value Reference Range Interpretation Comments CHOLESTEROL (test code = 2210) 201 MG/DL TRIGLYCERIDES (test code = 2232) 1014 MG/DL HDL CHOLESTEROL (test code = 25 MG/DL 2220) CALC LDL CHOL (test code = 2237) NOTE MG/DL RISK RATIO LDL/HDL (test code = (NOTE) RATIO 2238) HEMOGLOBIN [id number] 00:00:00 Test Item Value Reference Range Interpretation Comments HEMOGLOBIN A1c (test code = 49561) 8.5 % HEMOGLOBIN [id number] 00:00:00 Test Item Value Reference Range Interpretation Comments HEMOGLOBIN A1c (test code = 38527) 8.5 % COMPREHENSIVE METABOLIC [id number] 00:00:00 Test Item Value Reference Range Interpretation Comments GLUCOSE (test code = 2217) 131 MG/DL BUN (test code = 2208) 16 MG/DL CREATININE (test code = 2214) 0.71 MG/DL eGFR AMER. (test code 124 ML/MIN/1.73 = 84973) eGFR NON- AMER. (test 107 ML/MIN/1.73 code = 05097) CALC BUN/CREAT (test code = 23 RATIO [...] (test code = 2219) 33 U/L LIPID [id number] 00:00:00 Test Item Value Reference Range Interpretation Comments CHOLESTEROL (test code = 2210) 201 MG/DL TRIGLYCERIDES (test code = 2232) 1014 MG/DL HDL CHOLESTEROL (test code = 25 MG/DL 2220) CALC LDL CHOL (test code = 2237) NOTE MG/DL RISK RATIO LDL/HDL (test code = (NOTE) RATIO 2238) HEMOGLOBIN [id number] 00:00:00 Test Item Value Reference Range Interpretation Comments HEMOGLOBIN A1c (test code = 38320) 8.5 % HEMOGLOBIN [id number] 00:00:00 Test Item Value Reference Range Interpretation Comments HEMOGLOBIN A1c (test code = 20921) 8.5 % HEMOGLOBIN [id number] 00:00:00 Test Item Value Reference Range Interpretation Comments HEMOGLOBIN A1c (test code = 27537) 8.5 % COMPREHENSIVE METABOLIC [id number] 00:00:00 Test Item Value Reference Range Interpretation Comments GLUCOSE (test code = 2217) 131 MG/DL BUN (test code = 2208) 16 MG/DL CREATININE (test code = 2214) 0.71 MG/DL eGFR AMER. (test code 124 ML/MIN/1.73 = 18356) eGFR NON- AMER. (test 107 ML/MIN/1.73 code = 03260) CALC BUN/CREAT (test code = 23 RATIO [...] code = 2219) 33 U/L COMPREHENSIVE METABOLIC [id number] 00:00:00 Test Item Value Reference Range Interpretation Comments GLUCOSE (test code = 2217) 131 MG/DL BUN (test code = 2208) 16 MG/DL CREATININE (test code = 2214) 0.71 MG/DL eGFR AMER. (test code 124 ML/MIN/1.73 = 26213) eGFR NON- AMER. (test 107 ML/MIN/1.73 code = 57113) CALC BUN/CREAT (test code = 23 RATIO [...] (test code = 2219) 33 U/L LIPID [id number] 00:00:00 Test Item Value Reference Range Interpretation Comments CHOLESTEROL (test code = 2210) 201 MG/DL TRIGLYCERIDES (test code = 2232) 1014 MG/DL HDL CHOLESTEROL (test code = 25 MG/DL 2220) CALC LDL CHOL (test code = 2237) NOTE MG/DL RISK RATIO LDL/HDL (test code = (NOTE) RATIO 2238) LIPID [id number] 00:00:00 Test Item Value Reference Range Interpretation Comments CHOLESTEROL (test code = 2210) 201 MG/DL TRIGLYCERIDES (test code = 2232) 1014 MG/DL HDL CHOLESTEROL (test code = 25 MG/DL 2220) CALC LDL CHOL (test code = 2237) NOTE MG/DL RISK RATIO LDL/HDL (test code = (NOTE) RATIO 2238) HEMOGLOBIN [id number] 00:00:00 Test Item Value Reference Range Interpretation Comments HEMOGLOBIN A1c (test code = 77062) 8.5 % HEMOGLOBIN [id number] 00:00:00 Test Item Value Reference Range Interpretation Comments HEMOGLOBIN A1c (test code = 96819) 8.5 % HEMOGLOBIN [id number] 00:00:00 Test Item Value Reference Range Interpretation Comments HEMOGLOBIN A1c (test code = 65000) 8.5 % COMPREHENSIVE METABOLIC [id number] 00:00:00 Test Item Value Reference Range Interpretation Comments GLUCOSE (test code = 2217) 131 MG/DL BUN (test code = 2208) 16 MG/DL CREATININE (test code = 2214) 0.71 MG/DL eGFR AMER. (test code 124 ML/MIN/1.73 = 73120) eGFR NON- AMER. (test 107 ML/MIN/1.73 code = 93947) CALC BUN/CREAT (test code = 23 RATIO [...] code = 2219) 33 U/L COMPREHENSIVE METABOLIC [id number] 00:00:00 Test Item Value Reference Range Interpretation Comments GLUCOSE (test code = 2217) 131 MG/DL BUN (test code = 2208) 16 MG/DL CREATININE (test code = 2214) 0.71 MG/DL eGFR AMER. (test code 124 ML/MIN/1.73 = 88064) eGFR NON- AMER. (test 107 ML/MIN/1.73 code = 50892) CALC BUN/CREAT (test code = 23 RATIO [...] (test code = 2219) 33 U/L LIPID [id number] 00:00:00 Test Item Value Reference Range Interpretation Comments CHOLESTEROL (test code = 2210) 201 MG/DL TRIGLYCERIDES (test code = 2232) 1014 MG/DL HDL CHOLESTEROL (test code = 25 MG/DL 2220) CALC LDL CHOL (test code = 2237) NOTE MG/DL RISK RATIO LDL/HDL (test code = (NOTE) RATIO 2238) LIPID [id number] 00:00:00 Test Item Value Reference Range Interpretation Comments CHOLESTEROL (test code = 2210) 201 MG/DL TRIGLYCERIDES (test code = 2232) 1014 MG/DL HDL CHOLESTEROL (test code = 25 MG/DL 2220) CALC LDL CHOL (test code = 2237) NOTE MG/DL RISK RATIO LDL/HDL (test code = (NOTE) RATIO 2238) HEMOGLOBIN [id number] 00:00:00 Test Item Value Reference Range Interpretation Comments HEMOGLOBIN A1c (test code = 70681) 8.5 % HEMOGLOBIN [id number] 00:00:00 Test Item Value Reference Range Interpretation Comments HEMOGLOBIN A1c (test code = 94653) 8.5 % HEMOGLOBIN [id number] 00:00:00 Test Item Value Reference Range Interpretation Comments HEMOGLOBIN A1c (test code = 35897) 8.5 % COMPREHENSIVE METABOLIC [id number] 00:00:00 Test Item Value Reference Range Interpretation Comments GLUCOSE (test code = 2217) 131 MG/DL BUN (test code = 2208) 16 MG/DL CREATININE (test code = 2214) 0.71 MG/DL eGFR AMER. (test code 124 ML/MIN/1.73 = 98697) eGFR NON- AMER. (test 107 ML/MIN/1.73 code = 48111) CALC BUN/CREAT (test code = 23 RATIO [...] code = 2219) 33 U/L COMPREHENSIVE METABOLIC [id number] 00:00:00 Test Item Value Reference Range Interpretation Comments GLUCOSE (test code = 2217) 131 MG/DL BUN (test code = 2208) 16 MG/DL CREATININE (test code = 2214) 0.71 MG/DL eGFR AMER. (test code 124 ML/MIN/1.73 = 53462) eGFR NON- AMER. (test 107 ML/MIN/1.73 code = 73687) CALC BUN/CREAT (test code = 23 RATIO [...] (test code = 2219) 33 U/L LIPID [id number] 00:00:00 Test Item Value Reference Range Interpretation Comments CHOLESTEROL (test code = 2210) 201 MG/DL TRIGLYCERIDES (test code = 2232) 1014 MG/DL HDL CHOLESTEROL (test code = 25 MG/DL 2220) CALC LDL CHOL (test code = 2237) NOTE MG/DL RISK RATIO LDL/HDL (test code = (NOTE) RATIO 2238) LIPID [id number] 00:00:00 Test Item Value Reference Range Interpretation Comments CHOLESTEROL (test code = 2210) 201 MG/DL TRIGLYCERIDES (test code = 2232) 1014 MG/DL HDL CHOLESTEROL (test code = 25 MG/DL 2220) CALC LDL CHOL (test code = 2237) NOTE MG/DL RISK RATIO LDL/HDL (test code = (NOTE) RATIO 2238) CULTURE, HERPES [id number] 00:00:00 Test Item Value Reference Range Interpretation Comments SPECIMEN SOURCE (test code = 34320) LABIA HERPES CULTURE (test code = 3533) NEGATIVE CULTURE, HERPES [id number] 00:00:00 Test Item Value Reference Range Interpretation Comments SPECIMEN SOURCE (test code = 42210) LABIA HERPES CULTURE (test code = 3533) NEGATIVE CULTURE, HERPES [id number] 00:00:00 Test Item Value Reference Range Interpretation Comments SPECIMEN SOURCE (test code = 49617) LABIA HERPES CULTURE (test code = 3533) NEGATIVE CULTURE, HERPES [id number] 00:00:00 Test Item Value Reference Range Interpretation Comments SPECIMEN SOURCE (test code = 68078) LABIA HERPES CULTURE (test code = 3533) NEGATIVE CULTURE, HERPES [id number] 00:00:00 Test Item Value Reference Range Interpretation Comments SPECIMEN SOURCE (test code = 53834) LABIA HERPES CULTURE (test code = 3533) NEGATIVE CULTURE, HERPES [id number] 00:00:00 Test Item Value Reference Range Interpretation Comments SPECIMEN SOURCE (test code = 63093) LABIA HERPES CULTURE (test code = 3533) NEGATIVE CULTURE, HERPES [id number] 00:00:00 Test Item Value Reference Range Interpretation Comments SPECIMEN SOURCE (test code = 71535) LABIA HERPES CULTURE (test code = 3533) NEGATIVE CULTURE, HERPES [id number] 00:00:00 Test Item Value Reference Range Interpretation Comments SPECIMEN SOURCE (test code = 87849) LABIA HERPES CULTURE (test code = 3533) NEGATIVE CULTURE, HERPES [id number] 00:00:00 Test Item Value Reference Range Interpretation Comments SPECIMEN SOURCE (test code = 60072) LABIA HERPES CULTURE (test code = 3533) NEGATIVE CULTURE, HERPES [id number] 00:00:00 Test Item Value Reference Range Interpretation Comments SPECIMEN SOURCE (test code = 39532) LABIA HERPES CULTURE (test code = 3533) NEGATIVE CULTURE, HERPES [id number] 00:00:00 Test Item Value Reference Range Interpretation Comments SPECIMEN SOURCE (test code = 42051) LABIA HERPES CULTURE (test code = 3533) NEGATIVE CULTURE, HERPES [id number] 00:00:00 Test Item Value Reference Range Interpretation Comments SPECIMEN SOURCE (test code = 99241) LABIA HERPES CULTURE (test code = 3533) NEGATIVE CULTURE, HERPES [id number] 00:00:00 Test Item Value Reference Range Interpretation Comments SPECIMEN SOURCE (test code = 96742) LABIA HERPES CULTURE (test code = 3533) NEGATIVE CULTURE, HERPES [id number] 00:00:00 Test Item Value Reference Range Interpretation Comments SPECIMEN SOURCE (test code = 35576) LABIA HERPES CULTURE (test code = 3533) NEGATIVE CULTURE, HERPES [id number] 00:00:00 Test Item Value Reference Range Interpretation Comments SPECIMEN SOURCE (test code = 34358) LABIA HERPES CULTURE (test code = 3533) NEGATIVE CULTURE, HERPES [id number] 00:00:00 Test Item Value Reference Range Interpretation Comments SPECIMEN SOURCE (test code = 89809) LABIA HERPES CULTURE (test code = 3533) NEGATIVE CULTURE, HERPES [id number] 00:00:00 Test Item Value Reference Range Interpretation Comments SPECIMEN SOURCE (test code = 95180) LABIA HERPES CULTURE (test code = 3533) NEGATIVE CULTURE, HERPES [id number] 00:00:00 Test Item Value Reference Range Interpretation Comments SPECIMEN SOURCE (test code = 80809) LABIA HERPES CULTURE (test code = 3533) NEGATIVE CULTURE, HERPES [id number] 00:00:00 Test Item Value Reference Range Interpretation Comments SPECIMEN SOURCE (test code = 50655) LABIA HERPES CULTURE (test code = 3533) NEGATIVE CULTURE, HERPES [id number] 00:00:00 Test Item Value Reference Range Interpretation Comments SPECIMEN SOURCE (test code = 31951) LABIA HERPES CULTURE (test code = 3533) NEGATIVE CULTURE, HERPES [id number] 00:00:00 Test Item Value Reference Range Interpretation Comments SPECIMEN SOURCE (test code = 10753) LABIA HERPES CULTURE (test code = 3533) NEGATIVE VAGINAL PATHOGENS DNA [id number] 00:00:00 Test Item Value Reference Range Interpretation Comments ANDIE SPECIES (test code = 49821) NEGATIVE G. VAGINALIS (test code = 81268) NEGATIVE T. VAGINALIS (test code = 91861) NEGATIVE VAGINAL PATHOGENS DNA [id number] 00:00:00 Test Item Value Reference Range Interpretation Comments ANDIE SPECIES (test code = 05358) NEGATIVE G. VAGINALIS (test code = 03778) NEGATIVE T. VAGINALIS (test code = 07849) NEGATIVE VAGINAL PATHOGENS DNA [id number] 00:00:00 Test Item Value Reference Range Interpretation Comments ANDIE SPECIES (test code = 54520) NEGATIVE G. VAGINALIS (test code = 11915) NEGATIVE T. VAGINALIS (test code = 95620) NEGATIVE VAGINAL PATHOGENS DNA [id number] 00:00:00 Test Item Value Reference Range Interpretation Comments ANDIE SPECIES (test code = 21124) NEGATIVE G. VAGINALIS (test code = 37148) NEGATIVE T. VAGINALIS (test code = 47039) NEGATIVE VAGINAL PATHOGENS DNA [id number] 00:00:00 Test Item Value Reference Range Interpretation Comments ANDIE SPECIES (test code = 90619) NEGATIVE G. VAGINALIS (test code = 71959) NEGATIVE T. VAGINALIS (test code = 69097) NEGATIVE VAGINAL PATHOGENS DNA [id number] 00:00:00 Test Item Value Reference Range Interpretation Comments ANDIE SPECIES (test code = 91708) NEGATIVE G. VAGINALIS (test code = 12052) NEGATIVE T. VAGINALIS (test code = 49521) NEGATIVE VAGINAL PATHOGENS DNA [id number] 00:00:00 Test Item Value Reference Range Interpretation Comments ANDIE SPECIES (test code = 74610) NEGATIVE G. VAGINALIS (test code = 95418) NEGATIVE T. VAGINALIS (test code = 83912) NEGATIVE VAGINAL PATHOGENS DNA [id number] 00:00:00 Test Item Value Reference Range Interpretation Comments ANDIE SPECIES (test code = 36378) NEGATIVE G. VAGINALIS (test code = 29674) NEGATIVE T. VAGINALIS (test code = 62793) NEGATIVE VAGINAL PATHOGENS DNA [id number] 00:00:00 Test Item Value Reference Range Interpretation Comments ANDIE SPECIES (test code = 13084) NEGATIVE G. VAGINALIS (test code = 74842) NEGATIVE T. VAGINALIS (test code = 87021) NEGATIVE VAGINAL PATHOGENS DNA [id number] 00:00:00 Test Item Value Reference Range Interpretation Comments ANDIE SPECIES (test code = 48185) NEGATIVE G. VAGINALIS (test code = 64199) NEGATIVE T. VAGINALIS (test code = 42004) NEGATIVE VAGINAL PATHOGENS DNA [id number] 00:00:00 Test Item Value Reference Range Interpretation Comments ANDIE SPECIES (test code = 38304) NEGATIVE G. VAGINALIS (test code = 33586) NEGATIVE T. VAGINALIS (test code = 86791) NEGATIVE VAGINAL PATHOGENS DNA [id number] 00:00:00 Test Item Value Reference Range Interpretation Comments ANDIE SPECIES (test code = 47141) NEGATIVE G. VAGINALIS (test code = 73962) NEGATIVE T. VAGINALIS (test code = 94650) NEGATIVE VAGINAL PATHOGENS DNA [id number] 00:00:00 Test Item Value Reference Range Interpretation Comments ANDIE SPECIES (test code = 88795) NEGATIVE G. VAGINALIS (test code = 45317) NEGATIVE T. VAGINALIS (test code = 71630) NEGATIVE VAGINAL PATHOGENS DNA [id number] 00:00:00 Test Item Value Reference Range Interpretation Comments ANDIE SPECIES (test code = 82676) NEGATIVE G. VAGINALIS (test code = 80614) NEGATIVE T. VAGINALIS (test code = 76920) NEGATIVE VAGINAL PATHOGENS DNA [id number] 00:00:00 Test Item Value Reference Range Interpretation Comments ANDIE SPECIES (test code = 91493) NEGATIVE G. VAGINALIS (test code = 08434) NEGATIVE T. VAGINALIS (test code = 26063) NEGATIVE VAGINAL PATHOGENS DNA [id number] 00:00:00 Test Item Value Reference Range Interpretation Comments ANDIE SPECIES (test code = 56718) NEGATIVE G. VAGINALIS (test code = 93283) NEGATIVE T. VAGINALIS (test code = 30774) NEGATIVE VAGINAL PATHOGENS DNA [id number] 00:00:00 Test Item Value Reference Range Interpretation Comments ANDIE SPECIES (test code = 12538) NEGATIVE G. VAGINALIS (test code = 00030) NEGATIVE T. VAGINALIS (test code = 44053) NEGATIVE VAGINAL PATHOGENS DNA [id number] 00:00:00 Test Item Value Reference Range Interpretation Comments ANDIE SPECIES (test code = 47066) NEGATIVE G. VAGINALIS (test code = 86252) NEGATIVE T. VAGINALIS (test code = 27410) NEGATIVE VAGINAL PATHOGENS DNA [id number] 00:00:00 Test Item Value Reference Range Interpretation Comments ANDIE SPECIES (test code = 75243) NEGATIVE G. VAGINALIS (test code = 13556) NEGATIVE T. VAGINALIS (test code = 10577) NEGATIVE VAGINAL PATHOGENS DNA [id number] 00:00:00 Test Item Value Reference Range Interpretation Comments ANDIE SPECIES (test code = 85744) NEGATIVE G. VAGINALIS (test code = 08006) NEGATIVE T. VAGINALIS (test code = 10398) NEGATIVE VAGINAL PATHOGENS DNA [id number] 00:00:00 Test Item Value Reference Range Interpretation Comments ANDIE SPECIES (test code = 90435) NEGATIVE G. VAGINALIS (test code = 22016) NEGATIVE T. VAGINALIS (test code = 38840) NEGATIVE COMPREHENSIVE METABOLIC [id number] 00:00:00 Test Item Value Reference Range Interpretation Comments GLUCOSE (test code = 2217) 138 MG/DL BUN (test code = 2208) 13 MG/DL CREATININE (test code = 2214) 0.50 MG/DL eGFR AMER. (test code 141 ML/MIN/1.73 = 11607) eGFR NON- AMER. (test 122 ML/MIN/1.73 code = 43418) CALC BUN/CREAT (test code = 26 RATIO [...] code = 2219) 41 U/L COMPREHENSIVE METABOLIC [id number] 00:00:00 Test Item Value Reference Range Interpretation Comments GLUCOSE (test code = 2217) 138 MG/DL BUN (test code = 2208) 13 MG/DL CREATININE (test code = 2214) 0.50 MG/DL eGFR AMER. (test code 141 ML/MIN/1.73 = 42199) eGFR NON- AMER. (test 122 ML/MIN/1.73 code = 17359) CALC BUN/CREAT (test code = 26 RATIO [...] (test code = 2219) 41 U/L LIPID [id number] 00:00:00 Test Item Value Reference Range Interpretation Comments CHOLESTEROL (test code = 2210) 359 MG/DL TRIGLYCERIDES (test code = 2232) 1659 MG/DL HDL CHOLESTEROL (test code = 15 MG/DL 2220) CALC LDL CHOL (test code = 2237) NOTE MG/DL RISK RATIO LDL/HDL (test code = (NOTE) RATIO 2238) LIPID [id number] 00:00:00 Test Item Value Reference Range Interpretation Comments CHOLESTEROL (test code = 2210) 359 MG/DL TRIGLYCERIDES (test code = 2232) 1659 MG/DL HDL CHOLESTEROL (test code = 15 MG/DL 2220) CALC LDL CHOL (test code = 2237) NOTE MG/DL RISK RATIO LDL/HDL (test code = (NOTE) RATIO 2238) CBC W/AUTO [id number] 00:00:00 Test Item Value Reference Range Interpretation [...] code = 1015) 287 K/UL CBC W/AUTO [id number] 00:00:00 Test Item Value Reference Range Interpretation [...] code = 1015) 287 K/UL CBC W/AUTO [id number] 00:00:00 Test Item Value Reference Range Interpretation [...] (test code = 1015) 287 K/UL HEMOGLOBIN [id number] 00:00:00 Test Item Value Reference Range Interpretation Comments HEMOGLOBIN A1c (test code = 92926) 9.8 % HEMOGLOBIN [id number] 00:00:00 Test Item Value Reference Range Interpretation Comments HEMOGLOBIN A1c (test code = 02699) 9.8 % HEMOGLOBIN [id number] 00:00:00 Test Item Value Reference Range Interpretation Comments HEMOGLOBIN A1c (test code = 35329) 9.8 % [id number] 00:00:00 Test Item Value Reference Range Interpretation Comments TSH (test code = 2821) 2.110 UIU/ML [id number] 00:00:00 Test Item Value Reference Range Interpretation Comments TSH (test code = 2821) 2.110 UIU/ML [id number] 00:00:00 Test Item Value Reference Range Interpretation Comments TSH (test code = 2821) 2.110 UIU/ML COMPREHENSIVE METABOLIC [id number] 00:00:00 Test Item Value Reference Range Interpretation Comments GLUCOSE (test code = 2217) 138 MG/DL BUN (test code = 2208) 13 MG/DL CREATININE (test code = 2214) 0.50 MG/DL eGFR AMER. (test code 141 ML/MIN/1.73 = 86865) eGFR NON- AMER. (test 122 ML/MIN/1.73 code = 79636) CALC BUN/CREAT (test code = 26 RATIO [...] code = 2219) 41 U/L COMPREHENSIVE METABOLIC [id number] 00:00:00 Test Item Value Reference Range Interpretation Comments GLUCOSE (test code = 2217) 138 MG/DL BUN (test code = 2208) 13 MG/DL CREATININE (test code = 2214) 0.50 MG/DL eGFR AMER. (test code 141 ML/MIN/1.73 = 94936) eGFR NON- AMER. (test 122 ML/MIN/1.73 code = 85186) CALC BUN/CREAT (test code = 26 RATIO [...] (test code = 2219) 41 U/L LIPID [id number] 00:00:00 Test Item Value Reference Range Interpretation Comments CHOLESTEROL (test code = 2210) 359 MG/DL TRIGLYCERIDES (test code = 2232) 1659 MG/DL HDL CHOLESTEROL (test code = 15 MG/DL 0) CALC LDL CHOL (test code = 2237) NOTE MG/DL RISK RATIO LDL/HDL (test code = (NOTE) RATIO 2238) LIPID [id number] 00:00:00 Test Item Value Reference Range Interpretation Comments CHOLESTEROL (test code = 2210) 359 MG/DL TRIGLYCERIDES (test code = 2232) 1659 MG/DL HDL CHOLESTEROL (test code = 15 MG/DL 2220) CALC LDL CHOL (test code = 2237) NOTE MG/DL RISK RATIO LDL/HDL (test code = (NOTE) RATIO 2238) CBC W/AUTO [id number] 00:00:00 Test Item Value Reference Range Interpretation [...] code = 1015) 287 K/UL CBC W/AUTO [id number] 00:00:00 Test Item Value Reference Range Interpretation [...] code = 1015) 287 K/UL CBC W/AUTO [id number] 00:00:00 Test Item Value Reference Range Interpretation [...] (test code = 1015) 287 K/UL HEMOGLOBIN [id number] 00:00:00 Test Item Value Reference Range Interpretation Comments HEMOGLOBIN A1c (test code = 25519) 9.8 % HEMOGLOBIN [id number] 00:00:00 Test Item Value Reference Range Interpretation Comments HEMOGLOBIN A1c (test code = 39302) 9.8 % HEMOGLOBIN [id number] 00:00:00 Test Item Value Reference Range Interpretation Comments HEMOGLOBIN A1c (test code = 92939) 9.8 % [id number] 00:00:00 Test Item Value Reference Range Interpretation Comments TSH (test code = 2821) 2.110 UIU/ML [id number] 00:00:00 Test Item Value Reference Range Interpretation Comments TSH (test code = 2821) 2.110 UIU/ML [id number] 00:00:00 Test Item Value Reference Range Interpretation Comments TSH (test code = 2821) 2.110 UIU/ML COMPREHENSIVE METABOLIC [id number] 00:00:00 Test Item Value Reference Range Interpretation Comments GLUCOSE (test code = 2217) 138 MG/DL BUN (test code = 2208) 13 MG/DL CREATININE (test code = 2214) 0.50 MG/DL eGFR AMER. (test code 141 ML/MIN/1.73 = 50262) eGFR NON- AMER. (test 122 ML/MIN/1.73 code = 40509) CALC BUN/CREAT (test code = 26 RATIO [...] code = 2219) 41 U/L COMPREHENSIVE METABOLIC [id number] 00:00:00 Test Item Value Reference Range Interpretation Comments GLUCOSE (test code = 2217) 138 MG/DL BUN (test code = 2208) 13 MG/DL CREATININE (test code = 2214) 0.50 MG/DL eGFR AMER. (test code 141 ML/MIN/1.73 = 16037) eGFR NON- AMER. (test 122 ML/MIN/1.73 code = 46173) CALC BUN/CREAT (test code = 26 RATIO [...] (test code = 2219) 41 U/L LIPID [id number] 00:00:00 Test Item Value Reference Range Interpretation Comments CHOLESTEROL (test code = 2210) 359 MG/DL TRIGLYCERIDES (test code = 2232) 1659 MG/DL HDL CHOLESTEROL (test code = 15 MG/DL 2220) CALC LDL CHOL (test code = 2237) NOTE MG/DL RISK RATIO LDL/HDL (test code = (NOTE) RATIO 2238) LIPID [id number] 00:00:00 Test Item Value Reference Range Interpretation Comments CHOLESTEROL (test code = 2210) 359 MG/DL TRIGLYCERIDES (test code = 2232) 1659 MG/DL HDL CHOLESTEROL (test code = 15 MG/DL 2220) CALC LDL CHOL (test code = 2237) NOTE MG/DL RISK RATIO LDL/HDL (test code = (NOTE) RATIO 2238) CBC W/AUTO [id number] 00:00:00 Test Item Value Reference Range Interpretation [...] code = 1015) 287 K/UL CBC W/AUTO [id number] 00:00:00 Test Item Value Reference Range Interpretation [...] code = 1015) 287 K/UL CBC W/AUTO [id number] 00:00:00 Test Item Value Reference Range Interpretation [...] (test code = 1015) 287 K/UL HEMOGLOBIN [id number] 00:00:00 Test Item Value Reference Range Interpretation Comments HEMOGLOBIN A1c (test code = 25212) 9.8 % HEMOGLOBIN [id number] 00:00:00 Test Item Value Reference Range Interpretation Comments HEMOGLOBIN A1c (test code = 08591) 9.8 % HEMOGLOBIN [id number] 00:00:00 Test Item Value Reference Range Interpretation Comments HEMOGLOBIN A1c (test code = 45039) 9.8 % [id number] 00:00:00 Test Item Value Reference Range Interpretation Comments TSH (test code = 2821) 2.110 UIU/ML [id number] 00:00:00 Test Item Value Reference Range Interpretation Comments TSH (test code = 2821) 2.110 UIU/ML [id number] 00:00:00 Test Item Value Reference Range Interpretation Comments TSH (test code = 2821) 2.110 UIU/ML COMPREHENSIVE METABOLIC [id number] 00:00:00 Test Item Value Reference Range Interpretation Comments GLUCOSE (test code = 2217) 138 MG/DL BUN (test code = 2208) 13 MG/DL CREATININE (test code = 2214) 0.50 MG/DL eGFR AMER. (test code 141 ML/MIN/1.73 = 67958) eGFR NON- AMER. (test 122 ML/MIN/1.73 code = 65121) CALC BUN/CREAT (test code = 26 RATIO [...] code = 2219) 41 U/L COMPREHENSIVE METABOLIC [id number] 00:00:00 Test Item Value Reference Range Interpretation Comments GLUCOSE (test code = 2217) 138 MG/DL BUN (test code = 2208) 13 MG/DL CREATININE (test code = 2214) 0.50 MG/DL eGFR AMER. (test code 141 ML/MIN/1.73 = 46364) eGFR NON- AMER. (test 122 ML/MIN/1.73 code = 47079) CALC BUN/CREAT (test code = 26 RATIO [...] (test code = 2219) 41 U/L LIPID [id number] 00:00:00 Test Item Value Reference Range Interpretation Comments CHOLESTEROL (test code = 2210) 359 MG/DL TRIGLYCERIDES (test code = 2232) 1659 MG/DL HDL CHOLESTEROL (test code = 15 MG/DL 2220) CALC LDL CHOL (test code = 2237) NOTE MG/DL RISK RATIO LDL/HDL (test code = (NOTE) RATIO 2238) LIPID [id number] 00:00:00 Test Item Value Reference Range Interpretation Comments CHOLESTEROL (test code = 2210) 359 MG/DL TRIGLYCERIDES (test code = 2232) 1659 MG/DL HDL CHOLESTEROL (test code = 15 MG/DL 2220) CALC LDL CHOL (test code = 2237) NOTE MG/DL RISK RATIO LDL/HDL (test code = (NOTE) RATIO 2238) CBC W/AUTO [id number] 00:00:00 Test Item Value Reference Range Interpretation [...] code = 1015) 287 K/UL CBC W/AUTO [id number] 00:00:00 Test Item Value Reference Range Interpretation [...] code = 1015) 287 K/UL CBC W/AUTO [id number] 00:00:00 Test Item Value Reference Range Interpretation [...] (test code = 1015) 287 K/UL HEMOGLOBIN [id number] 00:00:00 Test Item Value Reference Range Interpretation Comments HEMOGLOBIN A1c (test code = 92527) 9.8 % HEMOGLOBIN [id number] 00:00:00 Test Item Value Reference Range Interpretation Comments HEMOGLOBIN A1c (test code = 90568) 9.8 % HEMOGLOBIN [id number] 00:00:00 Test Item Value Reference Range Interpretation Comments HEMOGLOBIN A1c (test code = 40764) 9.8 % [id number] 00:00:00 Test Item Value Reference Range Interpretation Comments TSH (test code = 2821) 2.110 UIU/ML [id number] 00:00:00 Test Item Value Reference Range Interpretation Comments TSH (test code = 2821) 2.110 UIU/ML [id number] 00:00:00 Test Item Value Reference Range Interpretation Comments TSH (test code = 2821) 2.110 UIU/ML COMPREHENSIVE METABOLIC [id number] 00:00:00 Test Item Value Reference Range Interpretation Comments GLUCOSE (test code = 2217) 138 MG/DL BUN (test code = 2208) 13 MG/DL CREATININE (test code = 2214) 0.50 MG/DL eGFR AMER. (test code 141 ML/MIN/1.73 = 46467) eGFR NON- AMER. (test 122 ML/MIN/1.73 code = 43131) CALC BUN/CREAT (test code = 26 RATIO [...] code = 2219) 41 U/L COMPREHENSIVE METABOLIC [id number] 00:00:00 Test Item Value Reference Range Interpretation Comments GLUCOSE (test code = 2217) 138 MG/DL BUN (test code = 2208) 13 MG/DL CREATININE (test code = 2214) 0.50 MG/DL eGFR AMER. (test code 141 ML/MIN/1.73 = 22523) eGFR NON- AMER. (test 122 ML/MIN/1.73 code = 86959) CALC BUN/CREAT (test code = 26 RATIO [...] (test code = 2219) 41 U/L LIPID [id number] 00:00:00 Test Item Value Reference Range Interpretation Comments CHOLESTEROL (test code = 2210) 359 MG/DL TRIGLYCERIDES (test code = 2232) 1659 MG/DL HDL CHOLESTEROL (test code = 15 MG/DL 2220) CALC LDL CHOL (test code = 2237) NOTE MG/DL RISK RATIO LDL/HDL (test code = (NOTE) RATIO 2238) LIPID [id number] 00:00:00 Test Item Value Reference Range Interpretation Comments CHOLESTEROL (test code = 2210) 359 MG/DL TRIGLYCERIDES (test code = 2232) 1659 MG/DL HDL CHOLESTEROL (test code = 15 MG/DL 2220) CALC LDL CHOL (test code = 2237) NOTE MG/DL RISK RATIO LDL/HDL (test code = (NOTE) RATIO 2238) CBC W/AUTO [id number] 00:00:00 Test Item Value Reference Range Interpretation [...] code = 1015) 287 K/UL CBC W/AUTO [id number] 00:00:00 Test Item Value Reference Range Interpretation [...] code = 1015) 287 K/UL CBC W/AUTO [id number] 00:00:00 Test Item Value Reference Range Interpretation [...] (test code = 1015) 287 K/UL HEMOGLOBIN [id number] 00:00:00 Test Item Value Reference Range Interpretation Comments HEMOGLOBIN A1c (test code = 64131) 9.8 % HEMOGLOBIN [id number] 00:00:00 Test Item Value Reference Range Interpretation Comments HEMOGLOBIN A1c (test code = 43334) 9.8 % HEMOGLOBIN [id number] 00:00:00 Test Item Value Reference Range Interpretation Comments HEMOGLOBIN A1c (test code = 88879) 9.8 % [id number] 00:00:00 Test Item Value Reference Range Interpretation Comments TSH (test code = 2821) 2.110 UIU/ML [id number] 00:00:00 Test Item Value Reference Range Interpretation Comments TSH (test code = 2821) 2.110 UIU/ML [id number] 00:00:00 Test Item Value Reference Range Interpretation Comments TSH (test code = 2821) 2.110 UIU/ML COMPREHENSIVE METABOLIC [id number] 00:00:00 Test Item Value Reference Range Interpretation Comments GLUCOSE (test code = 2217) 138 MG/DL BUN (test code = 2208) 13 MG/DL CREATININE (test code = 2214) 0.50 MG/DL eGFR AMER. (test code 141 ML/MIN/1.73 = 25428) eGFR NON- AMER. (test 122 ML/MIN/1.73 code = 98665) CALC BUN/CREAT (test code = 26 RATIO [...] code = 2219) 41 U/L COMPREHENSIVE METABOLIC [id number] 00:00:00 Test Item Value Reference Range Interpretation Comments GLUCOSE (test code = 2217) 138 MG/DL BUN (test code = 2208) 13 MG/DL CREATININE (test code = 2214) 0.50 MG/DL eGFR AMER. (test code 141 ML/MIN/1.73 = 00118) eGFR NON- AMER. (test 122 ML/MIN/1.73 code = 99053) CALC BUN/CREAT (test code = 26 RATIO [...] (test code = 2219) 41 U/L LIPID [id number] 00:00:00 Test Item Value Reference Range Interpretation Comments CHOLESTEROL (test code = 2210) 359 MG/DL TRIGLYCERIDES (test code = 2232) 1659 MG/DL HDL CHOLESTEROL (test code = 15 MG/DL 2220) CALC LDL CHOL (test code = 2237) NOTE MG/DL RISK RATIO LDL/HDL (test code = (NOTE) RATIO 2238) LIPID [id number] 00:00:00 Test Item Value Reference Range Interpretation Comments CHOLESTEROL (test code = 2210) 359 MG/DL TRIGLYCERIDES (test code = 2232) 1659 MG/DL HDL CHOLESTEROL (test code = 15 MG/DL 2220) CALC LDL CHOL (test code = 2237) NOTE MG/DL RISK RATIO LDL/HDL (test code = (NOTE) RATIO 2238) CBC W/AUTO [id number] 00:00:00 Test Item Value Reference Range Interpretation [...] code = 1015) 287 K/UL CBC W/AUTO [id number] 00:00:00 Test Item Value Reference Range Interpretation [...] code = 1015) 287 K/UL CBC W/AUTO [id number] 00:00:00 Test Item Value Reference Range Interpretation [...] (test code = 1015) 287 K/UL HEMOGLOBIN [id number] 00:00:00 Test Item Value Reference Range Interpretation Comments HEMOGLOBIN A1c (test code = 29092) 9.8 % HEMOGLOBIN [id number] 00:00:00 Test Item Value Reference Range Interpretation Comments HEMOGLOBIN A1c (test code = 15794) 9.8 % HEMOGLOBIN [id number] 00:00:00 Test Item Value Reference Range Interpretation Comments HEMOGLOBIN A1c (test code = 08730) 9.8 % [id number] 00:00:00 Test Item Value Reference Range Interpretation Comments TSH (test code = 2821) 2.110 UIU/ML [id number] 00:00:00 Test Item Value Reference Range Interpretation Comments TSH (test code = 2821) 2.110 UIU/ML [id number] 00:00:00 Test Item Value Reference Range Interpretation Comments TSH (test code = 2821) 2.110 UIU/ML COMPREHENSIVE METABOLIC [id number] 00:00:00 Test Item Value Reference Range Interpretation Comments GLUCOSE (test code = 2217) 138 MG/DL BUN (test code = 2208) 13 MG/DL CREATININE (test code = 2214) 0.50 MG/DL eGFR AMER. (test code 141 ML/MIN/1.73 = 65890) eGFR NON- AMER. (test 122 ML/MIN/1.73 code = 74507) CALC BUN/CREAT (test code = 26 RATIO [...] code = 2219) 41 U/L COMPREHENSIVE METABOLIC [id number] 00:00:00 Test Item Value Reference Range Interpretation Comments GLUCOSE (test code = 2217) 138 MG/DL BUN (test code = 2208) 13 MG/DL CREATININE (test code = 2214) 0.50 MG/DL eGFR AMER. (test code 141 ML/MIN/1.73 = 41986) eGFR NON- AMER. (test 122 ML/MIN/1.73 code = 50884) CALC BUN/CREAT (test code = 26 RATIO [...] (test code = 2219) 41 U/L LIPID [id number] 00:00:00 Test Item Value Reference Range Interpretation Comments CHOLESTEROL (test code = 2210) 359 MG/DL TRIGLYCERIDES (test code = 2232) 1659 MG/DL HDL CHOLESTEROL (test code = 15 MG/DL 2220) CALC LDL CHOL (test code = 2237) NOTE MG/DL RISK RATIO LDL/HDL (test code = (NOTE) RATIO 2238) LIPID [id number] 00:00:00 Test Item Value Reference Range Interpretation Comments CHOLESTEROL (test code = 2210) 359 MG/DL TRIGLYCERIDES (test code = 2232) 1659 MG/DL HDL CHOLESTEROL (test code = 15 MG/DL 2220) CALC LDL CHOL (test code = 2237) NOTE MG/DL RISK RATIO LDL/HDL (test code = (NOTE) RATIO 2238) CBC W/AUTO [id number] 00:00:00 Test Item Value Reference Range Interpretation [...] code = 1015) 287 K/UL CBC W/AUTO [id number] 00:00:00 Test Item Value Reference Range Interpretation [...] code = 1015) 287 K/UL CBC W/AUTO [id number] 00:00:00 Test Item Value Reference Range Interpretation [...] (test code = 1015) 287 K/UL HEMOGLOBIN [id number] 00:00:00 Test Item Value Reference Range Interpretation Comments HEMOGLOBIN A1c (test code = 89037) 9.8 % HEMOGLOBIN [id number] 00:00:00 Test Item Value Reference Range Interpretation Comments HEMOGLOBIN A1c (test code = 21040) 9.8 % HEMOGLOBIN [id number] 00:00:00 Test Item Value Reference Range Interpretation Comments HEMOGLOBIN A1c (test code = 93452) 9.8 % [id number] 00:00:00 Test Item Value Reference Range Interpretation Comments TSH (test code = 2821) 2.110 UIU/ML [id number] 00:00:00 Test Item Value Reference Range Interpretation Comments TSH (test code = 2821) 2.110 UIU/ML [id number] 00:00:00 Test Item Value Reference Range Interpretation Comments TSH (test code = 2821) 2.110 UIU/ML COMPREHENSIVE METABOLIC [id number] 00:00:00 Test Item Value Reference Range Interpretation Comments GLUCOSE (test code = 2217) 138 MG/DL BUN (test code = 2208) 13 MG/DL CREATININE (test code = 2214) 0.50 MG/DL eGFR AMER. (test code 141 ML/MIN/1.73 = 67867) eGFR NON- AMER. (test 122 ML/MIN/1.73 code = 32375) CALC BUN/CREAT (test code = 26 RATIO [...] (test code = 2219) 41 U/L LIPID [id number] 00:00:00 Test Item Value Reference Range Interpretation Comments CHOLESTEROL (test code = 2210) 359 MG/DL TRIGLYCERIDES (test code = 2232) 1659 MG/DL HDL CHOLESTEROL (test code = 15 MG/DL 2220) CALC LDL CHOL (test code = 2237) NOTE MG/DL RISK RATIO LDL/HDL (test code = (NOTE) RATIO 2238) CBC W/AUTO [id number] 00:00:00 Test Item Value Reference Range Interpretation [...] code = 1015) 287 K/UL CBC W/AUTO [id number] 00:00:00 Test Item Value Reference Range Interpretation [...] (test code = 1015) 287 K/UL HEMOGLOBIN [id number] 00:00:00 Test Item Value Reference Range Interpretation Comments HEMOGLOBIN A1c (test code = 00704) 9.8 % HEMOGLOBIN [id number] 00:00:00 Test Item Value Reference Range Interpretation Comments HEMOGLOBIN A1c (test code = 81333) 9.8 % COMPREHENSIVE METABOLIC [id number] 00:00:00 Test Item Value Reference Range Interpretation Comments GLUCOSE (test code = 2217) 138 MG/DL BUN (test code = 2208) 13 MG/DL CREATININE (test code = 2214) 0.50 MG/DL eGFR AMER. (test code 141 ML/MIN/1.73 = 73830) eGFR NON- AMER. (test 122 ML/MIN/1.73 code = 40164) CALC BUN/CREAT (test code = 26 RATIO [...] code = 2219) 41 U/L COMPREHENSIVE METABOLIC [id number] 00:00:00 Test Item Value Reference Range Interpretation Comments GLUCOSE (test code = 2217) 138 MG/DL BUN (test code = 2208) 13 MG/DL CREATININE (test code = 2214) 0.50 MG/DL eGFR AMER. (test code 141 ML/MIN/1.73 = 33049) eGFR NON- AMER. (test 122 ML/MIN/1.73 code = 88441) CALC BUN/CREAT (test code = 26 RATIO [...] (test code = 2219) 41 U/L LIPID [id number] 00:00:00 Test Item Value Reference Range Interpretation Comments CHOLESTEROL (test code = 2210) 359 MG/DL TRIGLYCERIDES (test code = 2232) 1659 MG/DL HDL CHOLESTEROL (test code = 15 MG/DL 2220) CALC LDL CHOL (test code = 2237) NOTE MG/DL RISK RATIO LDL/HDL (test code = (NOTE) RATIO 2238) LIPID [id number] 00:00:00 Test Item Value Reference Range Interpretation Comments CHOLESTEROL (test code = 2210) 359 MG/DL TRIGLYCERIDES (test code = 2232) 1659 MG/DL HDL CHOLESTEROL (test code = 15 MG/DL 2220) CALC LDL CHOL (test code = 2237) NOTE MG/DL RISK RATIO LDL/HDL (test code = (NOTE) RATIO 2238) [id number] 00:00:00 Test Item Value Reference Range Interpretation Comments TSH (test code = 2821) 2.110 UIU/ML CBC W/AUTO [id number] 00:00:00 Test Item Value Reference Range Interpretation [...] code = 1015) 287 K/UL CBC W/AUTO [id number] 00:00:00 Test Item Value Reference Range Interpretation [...] code = 1015) 287 K/UL CBC W/AUTO [id number] 00:00:00 Test Item Value Reference Range Interpretation [...] (test code = 1015) 287 K/UL HEMOGLOBIN [id number] 00:00:00 Test Item Value Reference Range Interpretation Comments HEMOGLOBIN A1c (test code = 01851) 9.8 % HEMOGLOBIN [id number] 00:00:00 Test Item Value Reference Range Interpretation Comments HEMOGLOBIN A1c (test code = 71830) 9.8 % HEMOGLOBIN [id number] 00:00:00 Test Item Value Reference Range Interpretation Comments HEMOGLOBIN A1c (test code = 09697) 9.8 % [id number] 00:00:00 Test Item Value Reference Range Interpretation Comments TSH (test code = 2821) 2.110 UIU/ML [id number] 00:00:00 Test Item Value Reference Range Interpretation Comments TSH (test code = 2821) 2.110 UIU/ML [id number] 00:00:00 Test Item Value Reference Range Interpretation Comments TSH (test code = 2821) 2.110 UIU/ML [id number] 00:00:00 Test Item Value Reference Range Interpretation Comments TSH (test code = 2821) 2.110 UIU/ML COMPREHENSIVE METABOLIC [id number] 00:00:00 Test Item Value Reference Range Interpretation Comments GLUCOSE (test code = 2217) 138 MG/DL BUN (test code = 2208) 13 MG/DL CREATININE (test code = 2214) 0.50 MG/DL eGFR AMER. (test code 141 ML/MIN/1.73 = 40359) eGFR NON- AMER. (test 122 ML/MIN/1.73 code = 41740) CALC BUN/CREAT (test code = 26 RATIO [...] code = 2219) 41 U/L COMPREHENSIVE METABOLIC [id number] 00:00:00 Test Item Value Reference Range Interpretation Comments GLUCOSE (test code = 2217) 138 MG/DL BUN (test code = 2208) 13 MG/DL CREATININE (test code = 2214) 0.50 MG/DL eGFR AMER. (test code 141 ML/MIN/1.73 = 95001) eGFR NON- AMER. (test 122 ML/MIN/1.73 code = 32611) CALC BUN/CREAT (test code = 26 RATIO [...] (test code = 2219) 41 U/L LIPID [id number] 00:00:00 Test Item Value Reference Range Interpretation Comments CHOLESTEROL (test code = 2210) 359 MG/DL TRIGLYCERIDES (test code = 2232) 1659 MG/DL HDL CHOLESTEROL (test code = 15 MG/DL 2220) CALC LDL CHOL (test code = 2237) NOTE MG/DL RISK RATIO LDL/HDL (test code = (NOTE) RATIO 2238) LIPID [id number] 00:00:00 Test Item Value Reference Range Interpretation Comments CHOLESTEROL (test code = 2210) 359 MG/DL TRIGLYCERIDES (test code = 2232) 1659 MG/DL HDL CHOLESTEROL (test code = 15 MG/DL 2220) CALC LDL CHOL (test code = 2237) NOTE MG/DL RISK RATIO LDL/HDL (test code = (NOTE) RATIO 2238) CBC W/AUTO [id number] 00:00:00 Test Item Value Reference Range Interpretation [...] code = 1015) 287 K/UL CBC W/AUTO [id number] 00:00:00 Test Item Value Reference Range Interpretation [...] code = 1015) 287 K/UL CBC W/AUTO [id number] 00:00:00 Test Item Value Reference Range Interpretation [...] (test code = 1015) 287 K/UL HEMOGLOBIN [id number] 00:00:00 Test Item Value Reference Range Interpretation Comments HEMOGLOBIN A1c (test code = 26213) 9.8 % HEMOGLOBIN [id number] 00:00:00 Test Item Value Reference Range Interpretation Comments HEMOGLOBIN A1c (test code = 96641) 9.8 % HEMOGLOBIN [id number] 00:00:00 Test Item Value Reference Range Interpretation Comments HEMOGLOBIN A1c (test code = 09286) 9.8 % [id number] 00:00:00 Test Item Value Reference Range Interpretation Comments TSH (test code = 2821) 2.110 UIU/ML [id number] 00:00:00 Test Item Value Reference Range Interpretation Comments TSH (test code = 2821) 2.110 UIU/ML [id number] 00:00:00 Test Item Value Reference Range Interpretation Comments TSH (test code = 2821) 2.110 UIU/ML COMPREHENSIVE METABOLIC [id number] 00:00:00 Test Item Value Reference Range Interpretation Comments GLUCOSE (test code = 2217) 138 MG/DL BUN (test code = 2208) 13 MG/DL CREATININE (test code = 2214) 0.50 MG/DL eGFR AMER. (test code 141 ML/MIN/1.73 = 21896) eGFR NON- AMER. (test 122 ML/MIN/1.73 code = 27687) CALC BUN/CREAT (test code = 26 RATIO [...] code = 2219) 41 U/L COMPREHENSIVE METABOLIC [id number] 00:00:00 Test Item Value Reference Range Interpretation Comments GLUCOSE (test code = 2217) 138 MG/DL BUN (test code = 2208) 13 MG/DL CREATININE (test code = 2214) 0.50 MG/DL eGFR AMER. (test code 141 ML/MIN/1.73 = 83718) eGFR NON- AMER. (test 122 ML/MIN/1.73 code = 19160) CALC BUN/CREAT (test code = 26 RATIO [...] (test code = 2219) 41 U/L LIPID [id number] 00:00:00 Test Item Value Reference Range Interpretation Comments CHOLESTEROL (test code = 2210) 359 MG/DL TRIGLYCERIDES (test code = 2232) 1659 MG/DL HDL CHOLESTEROL (test code = 15 MG/DL 2220) CALC LDL CHOL (test code = 2237) NOTE MG/DL RISK RATIO LDL/HDL (test code = (NOTE) RATIO 2238) LIPID [id number] 00:00:00 Test Item Value Reference Range Interpretation Comments CHOLESTEROL (test code = 2210) 359 MG/DL TRIGLYCERIDES (test code = 2232) 1659 MG/DL HDL CHOLESTEROL (test code = 15 MG/DL 2220) CALC LDL CHOL (test code = 2237) NOTE MG/DL RISK RATIO LDL/HDL (test code = (NOTE) RATIO 2238) CBC W/AUTO [id number] 00:00:00 Test Item Value Reference Range Interpretation [...] code = 1015) 287 K/UL CBC W/AUTO [id number] 00:00:00 Test Item Value Reference Range Interpretation [...] code = 1015) 287 K/UL CBC W/AUTO [id number] 00:00:00 Test Item Value Reference Range Interpretation [...] (test code = 1015) 287 K/UL HEMOGLOBIN [id number] 00:00:00 Test Item Value Reference Range Interpretation Comments HEMOGLOBIN A1c (test code = 32863) 9.8 % HEMOGLOBIN [id number] 00:00:00 Test Item Value Reference Range Interpretation Comments HEMOGLOBIN A1c (test code = 85448) 9.8 % HEMOGLOBIN [id number] 00:00:00 Test Item Value Reference Range Interpretation Comments HEMOGLOBIN A1c (test code = 20682) 9.8 % [id number] 00:00:00 Test Item Value Reference Range Interpretation Comments TSH (test code = 2821) 2.110 UIU/ML [id number] 00:00:00 Test Item Value Reference Range Interpretation Comments TSH (test code = 2821) 2.110 UIU/ML [id number] 00:00:00 Test Item Value Reference Range Interpretation Comments TSH (test code = 2821) 2.110 UIU/ML LIPID [id number] 00:00:00 Test Item Value Reference Range Interpretation Comments CHOLESTEROL (test code = 2210) 195 MG/DL TRIGLYCERIDES (test code = 2232) 505 MG/DL HDL CHOLESTEROL (test code = 35 MG/DL 2220) CALC LDL CHOL (test code = 2237) NOTE MG/DL RISK RATIO LDL/HDL (test code = (NOTE) RATIO 2238) LIPID [id number] 00:00:00 Test Item Value Reference Range Interpretation [...] (test code = 2821) 2.000 UIU/ML LIPID [id number] 00:00:00 Test Item Value Reference Range Interpretation Comments CHOLESTEROL (test code = 2210) 195 MG/DL TRIGLYCERIDES (test code = 2232) 505 MG/DL HDL CHOLESTEROL (test code = 35 MG/DL 2220) CALC LDL CHOL (test code = 2237) NOTE MG/DL RISK RATIO LDL/HDL (test code = (NOTE) RATIO 2238) LIPID [id number] 00:00:00 Test Item Value Reference Range Interpretation [...] (test code = 2821) 2.000 UIU/ML LIPID [id number] 00:00:00 Test Item Value Reference Range Interpretation Comments CHOLESTEROL (test code = 2210) 195 MG/DL TRIGLYCERIDES (test code = 2232) 505 MG/DL HDL CHOLESTEROL (test code = 35 MG/DL 2220) CALC LDL CHOL (test code = 2237) NOTE MG/DL RISK RATIO LDL/HDL (test code = (NOTE) RATIO 2238) LIPID [id number] 00:00:00 Test Item Value Reference Range Interpretation [...] (test code = 2821) 2.000 UIU/ML LIPID [id number] 00:00:00 Test Item Value Reference Range Interpretation Comments CHOLESTEROL (test code = 2210) 195 MG/DL TRIGLYCERIDES (test code = 2232) 505 MG/DL HDL CHOLESTEROL (test code = 35 MG/DL 2220) CALC LDL CHOL (test code = 2237) NOTE MG/DL RISK RATIO LDL/HDL (test code = (NOTE) RATIO 2238) LIPID [id number] 00:00:00 Test Item Value Reference Range Interpretation [...] (test code = 2821) 2.000 UIU/ML LIPID [id number] 00:00:00 Test Item Value Reference Range Interpretation Comments CHOLESTEROL (test code = 2210) 195 MG/DL TRIGLYCERIDES (test code = 2232) 505 MG/DL HDL CHOLESTEROL (test code = 35 MG/DL 2220) CALC LDL CHOL (test code = 2237) NOTE MG/DL RISK RATIO LDL/HDL (test code = (NOTE) RATIO 2238) LIPID [id number] 00:00:00 Test Item Value Reference Range Interpretation [...] (test code = 2821) 2.000 UIU/ML LIPID [id number] 00:00:00 Test Item Value Reference Range Interpretation Comments CHOLESTEROL (test code = 2210) 195 MG/DL TRIGLYCERIDES (test code = 2232) 505 MG/DL HDL CHOLESTEROL (test code = 35 MG/DL 2220) CALC LDL CHOL (test code = 2237) NOTE MG/DL RISK RATIO LDL/HDL (test code = (NOTE) RATIO 2238) LIPID [id number] 00:00:00 Test Item Value Reference Range Interpretation [...] (test code = 2821) 2.000 UIU/ML LIPID [id number] 00:00:00 Test Item Value Reference Range Interpretation Comments CHOLESTEROL (test code = 2210) 195 MG/DL TRIGLYCERIDES (test code = 2232) 505 MG/DL HDL CHOLESTEROL (test code = 35 MG/DL 2220) CALC LDL CHOL (test code = 2237) NOTE MG/DL RISK RATIO LDL/HDL (test code = (NOTE) RATIO 2238) LIPID [id number] 00:00:00 Test Item Value Reference Range Interpretation [...] (test code = 2821) 2.000 UIU/ML LIPID [id number] 00:00:00 Test Item Value Reference Range Interpretation [...] (test code = 2821) 2.000 UIU/ML LIPID [id number] 00:00:00 Test Item Value Reference Range Interpretation Comments CHOLESTEROL (test code = 2210) 195 MG/DL TRIGLYCERIDES (test code = 2232) 505 MG/DL HDL CHOLESTEROL (test code = 35 MG/DL 2220) CALC LDL CHOL (test code = 2237) NOTE MG/DL RISK RATIO LDL/HDL (test code = (NOTE) RATIO 2238) LIPID [id number] 00:00:00 Test Item Value Reference Range Interpretation [...] (test code = 2821) 2.000 UIU/ML LIPID [id number] 00:00:00 Test Item Value Reference Range Interpretation Comments CHOLESTEROL (test code = 2210) 195 MG/DL TRIGLYCERIDES (test code = 2232) 505 MG/DL HDL CHOLESTEROL (test code = 35 MG/DL 2220) CALC LDL CHOL (test code = 2237) NOTE MG/DL RISK RATIO LDL/HDL (test code = (NOTE) RATIO 2238) LIPID [id number] 00:00:00 Test Item Value Reference Range Interpretation [...] (test code = 2821) 2.000 UIU/ML LIPID [id number] 00:00:00 Test Item Value Reference Range Interpretation Comments CHOLESTEROL (test code = 2210) 195 MG/DL TRIGLYCERIDES (test code = 2232) 505 MG/DL HDL CHOLESTEROL (test code = 35 MG/DL 2220) CALC LDL CHOL (test code = 2237) NOTE MG/DL RISK RATIO LDL/HDL (test code = (NOTE) RATIO 2238) LIPID [id number] 00:00:00 Test Item Value Reference Range Interpretation [...] T4 (THYROXINE) (test code = 7.4 UG/DL 2818) CALCULATED T7 (FTI) (test code = 2.26 2820) TSH (test code = 2821) 2.000 UIU/ML COMPREHENSIVE METABOLIC [id number] 00:00:00 Test Item Value Reference Range Interpretation Comments GLUCOSE (test code = 2217) 154 MG/DL BUN (test code = 2208) 12 MG/DL CREATININE (test code = 2214) 0.54 MG/DL eGFR AMER. (test code 139 ML/MIN/1.73 = 68747) eGFR NON- AMER. (test 120 ML/MIN/1.73 code = 32549) CALC BUN/CREAT (test code = 22 RATIO [...] code = 2219) 22 U/L COMPREHENSIVE METABOLIC [id number] 00:00:00 Test Item Value Reference Range Interpretation Comments GLUCOSE (test code = 2217) 154 MG/DL BUN (test code = 2208) 12 MG/DL CREATININE (test code = 2214) 0.54 MG/DL eGFR AMER. (test code 139 ML/MIN/1.73 = 81084) eGFR NON- AMER. (test 120 ML/MIN/1.73 code = 87021) CALC BUN/CREAT (test code = 22 RATIO [...] (test code = 2219) 22 U/L LIPID [id number] 00:00:00 Test Item Value Reference Range Interpretation Comments CHOLESTEROL (test code = 2210) 243 MG/DL TRIGLYCERIDES (test code = 2232) 1140 MG/DL HDL CHOLESTEROL (test code = 31 MG/DL 2220) CALC LDL CHOL (test code = 2237) NOTE MG/DL RISK RATIO LDL/HDL (test code = (NOTE) RATIO 2238) LIPID [id number] 00:00:00 Test Item Value Reference Range Interpretation Comments CHOLESTEROL (test code = 2210) 243 MG/DL TRIGLYCERIDES (test code = 2232) 1140 MG/DL HDL CHOLESTEROL (test code = 31 MG/DL 2220) CALC LDL CHOL (test code = 2237) NOTE MG/DL RISK RATIO LDL/HDL (test code = (NOTE) RATIO 2238) CBC W/AUTO [id number] 00:00:00 Test Item Value Reference Range Interpretation [...] code = 1015) 229 K/UL CBC W/AUTO [id number] 00:00:00 Test Item Value Reference Range Interpretation [...] code = 1015) 229 K/UL CBC W/AUTO [id number] 00:00:00 Test Item Value Reference Range Interpretation [...] (test code = 1015) 229 K/UL HEMOGLOBIN [id number] 00:00:00 Test Item Value Reference Range Interpretation Comments HEMOGLOBIN A1c (test code = 41622) 7.7 % HEMOGLOBIN [id number] 00:00:00 Test Item Value Reference Range Interpretation Comments HEMOGLOBIN A1c (test code = 40000) 7.7 % HEMOGLOBIN [id number] 00:00:00 Test Item Value Reference Range Interpretation Comments HEMOGLOBIN A1c (test code = 81447) 7.7 % COMPREHENSIVE METABOLIC [id number] 00:00:00 Test Item Value Reference Range Interpretation Comments GLUCOSE (test code = 2217) 154 MG/DL BUN (test code = 2208) 12 MG/DL CREATININE (test code = 2214) 0.54 MG/DL eGFR AMER. (test code 139 ML/MIN/1.73 = 41348) eGFR NON- AMER. (test 120 ML/MIN/1.73 code = 87692) CALC BUN/CREAT (test code = 22 RATIO [...] code = 2219) 22 U/L COMPREHENSIVE METABOLIC [id number] 00:00:00 Test Item Value Reference Range Interpretation Comments GLUCOSE (test code = 2217) 154 MG/DL BUN (test code = 2208) 12 MG/DL CREATININE (test code = 2214) 0.54 MG/DL eGFR AMER. (test code 139 ML/MIN/1.73 = 24894) eGFR NON- AMER. (test 120 ML/MIN/1.73 code = 78302) CALC BUN/CREAT (test code = 22 RATIO [...] (test code = 2219) 22 U/L LIPID [id number] 00:00:00 Test Item Value Reference Range Interpretation Comments CHOLESTEROL (test code = 2210) 243 MG/DL TRIGLYCERIDES (test code = 2232) 1140 MG/DL HDL CHOLESTEROL (test code = 31 MG/DL 2220) CALC LDL CHOL (test code = 2237) NOTE MG/DL RISK RATIO LDL/HDL (test code = (NOTE) RATIO 2238) LIPID [id number] 00:00:00 Test Item Value Reference Range Interpretation Comments CHOLESTEROL (test code = 2210) 243 MG/DL TRIGLYCERIDES (test code = 2232) 1140 MG/DL HDL CHOLESTEROL (test code = 31 MG/DL 2220) CALC LDL CHOL (test code = 2237) NOTE MG/DL RISK RATIO LDL/HDL (test code = (NOTE) RATIO 2238) CBC W/AUTO [id number] 00:00:00 Test Item Value Reference Range Interpretation [...] code = 1015) 229 K/UL CBC W/AUTO [id number] 00:00:00 Test Item Value Reference Range Interpretation [...] code = 1015) 229 K/UL CBC W/AUTO [id number] 00:00:00 Test Item Value Reference Range Interpretation [...] (test code = 1015) 229 K/UL HEMOGLOBIN [id number] 00:00:00 Test Item Value Reference Range Interpretation Comments HEMOGLOBIN A1c (test code = 47298) 7.7 % HEMOGLOBIN [id number] 00:00:00 Test Item Value Reference Range Interpretation Comments HEMOGLOBIN A1c (test code = 75508) 7.7 % HEMOGLOBIN [id number] 00:00:00 Test Item Value Reference Range Interpretation Comments HEMOGLOBIN A1c (test code = 61465) 7.7 % COMPREHENSIVE METABOLIC [id number] 00:00:00 Test Item Value Reference Range Interpretation Comments GLUCOSE (test code = 2217) 154 MG/DL BUN (test code = 2208) 12 MG/DL CREATININE (test code = 2214) 0.54 MG/DL eGFR AMER. (test code 139 ML/MIN/1.73 = 61896) eGFR NON- AMER. (test 120 ML/MIN/1.73 code = 78020) CALC BUN/CREAT (test code = 22 RATIO [...] code = 2219) 22 U/L COMPREHENSIVE METABOLIC [id number] 00:00:00 Test Item Value Reference Range Interpretation Comments GLUCOSE (test code = 2217) 154 MG/DL BUN (test code = 2208) 12 MG/DL CREATININE (test code = 2214) 0.54 MG/DL eGFR AMER. (test code 139 ML/MIN/1.73 = 28013) eGFR NON- AMER. (test 120 ML/MIN/1.73 code = 63874) CALC BUN/CREAT (test code = 22 RATIO [...] (test code = 2219) 22 U/L LIPID [id number] 00:00:00 Test Item Value Reference Range Interpretation Comments CHOLESTEROL (test code = 2210) 243 MG/DL TRIGLYCERIDES (test code = 2232) 1140 MG/DL HDL CHOLESTEROL (test code = 31 MG/DL 2220) CALC LDL CHOL (test code = 2237) NOTE MG/DL RISK RATIO LDL/HDL (test code = (NOTE) RATIO 2238) LIPID [id number] 00:00:00 Test Item Value Reference Range Interpretation Comments CHOLESTEROL (test code = 2210) 243 MG/DL TRIGLYCERIDES (test code = 2232) 1140 MG/DL HDL CHOLESTEROL (test code = 31 MG/DL 2220) CALC LDL CHOL (test code = 2237) NOTE MG/DL RISK RATIO LDL/HDL (test code = (NOTE) RATIO 2238) CBC W/AUTO [id number] 00:00:00 Test Item Value Reference Range Interpretation [...] code = 1015) 229 K/UL CBC W/AUTO [id number] 00:00:00 Test Item Value Reference Range Interpretation [...] code = 1015) 229 K/UL CBC W/AUTO [id number] 00:00:00 Test Item Value Reference Range Interpretation [...] (test code = 1015) 229 K/UL HEMOGLOBIN [id number] 00:00:00 Test Item Value Reference Range Interpretation Comments HEMOGLOBIN A1c (test code = 08992) 7.7 % HEMOGLOBIN [id number] 00:00:00 Test Item Value Reference Range Interpretation Comments HEMOGLOBIN A1c (test code = 38583) 7.7 % HEMOGLOBIN [id number] 00:00:00 Test Item Value Reference Range Interpretation Comments HEMOGLOBIN A1c (test code = 44929) 7.7 % COMPREHENSIVE METABOLIC [id number] 00:00:00 Test Item Value Reference Range Interpretation Comments GLUCOSE (test code = 2217) 154 MG/DL BUN (test code = 2208) 12 MG/DL CREATININE (test code = 2214) 0.54 MG/DL eGFR AMER. (test code 139 ML/MIN/1.73 = 34547) eGFR NON- AMER. (test 120 ML/MIN/1.73 code = 50970) CALC BUN/CREAT (test code = 22 RATIO [...] code = 2219) 22 U/L COMPREHENSIVE METABOLIC [id number] 00:00:00 Test Item Value Reference Range Interpretation Comments GLUCOSE (test code = 2217) 154 MG/DL BUN (test code = 2208) 12 MG/DL CREATININE (test code = 2214) 0.54 MG/DL eGFR AMER. (test code 139 ML/MIN/1.73 = 69390) eGFR NON- AMER. (test 120 ML/MIN/1.73 code = 61551) CALC BUN/CREAT (test code = 22 RATIO [...] (test code = 2219) 22 U/L LIPID [id number] 00:00:00 Test Item Value Reference Range Interpretation Comments CHOLESTEROL (test code = 2210) 243 MG/DL TRIGLYCERIDES (test code = 2232) 1140 MG/DL HDL CHOLESTEROL (test code = 31 MG/DL 2220) CALC LDL CHOL (test code = 2237) NOTE MG/DL RISK RATIO LDL/HDL (test code = (NOTE) RATIO 2238) LIPID [id number] 00:00:00 Test Item Value Reference Range Interpretation Comments CHOLESTEROL (test code = 2210) 243 MG/DL TRIGLYCERIDES (test code = 2232) 1140 MG/DL HDL CHOLESTEROL (test code = 31 MG/DL 2220) CALC LDL CHOL (test code = 2237) NOTE MG/DL RISK RATIO LDL/HDL (test code = (NOTE) RATIO 2238) CBC W/AUTO [id number] 00:00:00 Test Item Value Reference Range Interpretation [...] code = 1015) 229 K/UL CBC W/AUTO [id number] 00:00:00 Test Item Value Reference Range Interpretation [...] code = 1015) 229 K/UL CBC W/AUTO [id number] 00:00:00 Test Item Value Reference Range Interpretation [...] (test code = 1015) 229 K/UL HEMOGLOBIN [id number] 00:00:00 Test Item Value Reference Range Interpretation Comments HEMOGLOBIN A1c (test code = 14755) 7.7 % HEMOGLOBIN [id number] 00:00:00 Test Item Value Reference Range Interpretation Comments HEMOGLOBIN A1c (test code = 52378) 7.7 % HEMOGLOBIN [id number] 00:00:00 Test Item Value Reference Range Interpretation Comments HEMOGLOBIN A1c (test code = 59584) 7.7 % COMPREHENSIVE METABOLIC [id number] 00:00:00 Test Item Value Reference Range Interpretation Comments GLUCOSE (test code = 2217) 154 MG/DL BUN (test code = 2208) 12 MG/DL CREATININE (test code = 2214) 0.54 MG/DL eGFR AMER. (test code 139 ML/MIN/1.73 = 34023) eGFR NON- AMER. (test 120 ML/MIN/1.73 code = 58835) CALC BUN/CREAT (test code = 22 RATIO [...] code = 2219) 22 U/L COMPREHENSIVE METABOLIC [id number] 00:00:00 Test Item Value Reference Range Interpretation Comments GLUCOSE (test code = 2217) 154 MG/DL BUN (test code = 2208) 12 MG/DL CREATININE (test code = 2214) 0.54 MG/DL eGFR AMER. (test code 139 ML/MIN/1.73 = 07370) eGFR NON- AMER. (test 120 ML/MIN/1.73 code = 85572) CALC BUN/CREAT (test code = 22 RATIO [...] (test code = 2219) 22 U/L LIPID [id number] 00:00:00 Test Item Value Reference Range Interpretation Comments CHOLESTEROL (test code = 2210) 243 MG/DL TRIGLYCERIDES (test code = 2232) 1140 MG/DL HDL CHOLESTEROL (test code = 31 MG/DL 2220) CALC LDL CHOL (test code = 2237) NOTE MG/DL RISK RATIO LDL/HDL (test code = (NOTE) RATIO 2238) LIPID [id number] 00:00:00 Test Item Value Reference Range Interpretation Comments CHOLESTEROL (test code = 2210) 243 MG/DL TRIGLYCERIDES (test code = 2232) 1140 MG/DL HDL CHOLESTEROL (test code = 31 MG/DL 2220) CALC LDL CHOL (test code = 2237) NOTE MG/DL RISK RATIO LDL/HDL (test code = (NOTE) RATIO 2238) CBC W/AUTO [id number] 00:00:00 Test Item Value Reference Range Interpretation [...] code = 1015) 229 K/UL CBC W/AUTO [id number] 00:00:00 Test Item Value Reference Range Interpretation [...] code = 1015) 229 K/UL CBC W/AUTO [id number] 00:00:00 Test Item Value Reference Range Interpretation [...] (test code = 1015) 229 K/UL HEMOGLOBIN [id number] 00:00:00 Test Item Value Reference Range Interpretation Comments HEMOGLOBIN A1c (test code = 39917) 7.7 % HEMOGLOBIN [id number] 00:00:00 Test Item Value Reference Range Interpretation Comments HEMOGLOBIN A1c (test code = 56806) 7.7 % HEMOGLOBIN [id number] 00:00:00 Test Item Value Reference Range Interpretation Comments HEMOGLOBIN A1c (test code = 45879) 7.7 % COMPREHENSIVE METABOLIC [id number] 00:00:00 Test Item Value Reference Range Interpretation Comments GLUCOSE (test code = 2217) 154 MG/DL BUN (test code = 2208) 12 MG/DL CREATININE (test code = 2214) 0.54 MG/DL eGFR AMER. (test code 139 ML/MIN/1.73 = 97645) eGFR NON- AMER. (test 120 ML/MIN/1.73 code = 14301) CALC BUN/CREAT (test code = 22 RATIO [...] code = 2219) 22 U/L COMPREHENSIVE METABOLIC [id number] 00:00:00 Test Item Value Reference Range Interpretation Comments GLUCOSE (test code = 2217) 154 MG/DL BUN (test code = 2208) 12 MG/DL CREATININE (test code = 2214) 0.54 MG/DL eGFR AMER. (test code 139 ML/MIN/1.73 = 04030) eGFR NON- AMER. (test 120 ML/MIN/1.73 code = 96541) CALC BUN/CREAT (test code = 22 RATIO [...] (test code = 2219) 22 U/L LIPID [id number] 00:00:00 Test Item Value Reference Range Interpretation Comments CHOLESTEROL (test code = 2210) 243 MG/DL TRIGLYCERIDES (test code = 2232) 1140 MG/DL HDL CHOLESTEROL (test code = 31 MG/DL 0) CALC LDL CHOL (test code = 2237) NOTE MG/DL RISK RATIO LDL/HDL (test code = (NOTE) RATIO 2238) LIPID [id number] 00:00:00 Test Item Value Reference Range Interpretation Comments CHOLESTEROL (test code = 2210) 243 MG/DL TRIGLYCERIDES (test code = 2232) 1140 MG/DL HDL CHOLESTEROL (test code = 31 MG/DL 2220) CALC LDL CHOL (test code = 2237) NOTE MG/DL RISK RATIO LDL/HDL (test code = (NOTE) RATIO 2238) CBC W/AUTO [id number] 00:00:00 Test Item Value Reference Range Interpretation [...] code = 1015) 229 K/UL CBC W/AUTO [id number] 00:00:00 Test Item Value Reference Range Interpretation [...] code = 1015) 229 K/UL CBC W/AUTO [id number] 00:00:00 Test Item Value Reference Range Interpretation [...] (test code = 1015) 229 K/UL HEMOGLOBIN [id number] 00:00:00 Test Item Value Reference Range Interpretation Comments HEMOGLOBIN A1c (test code = 15686) 7.7 % HEMOGLOBIN [id number] 00:00:00 Test Item Value Reference Range Interpretation Comments HEMOGLOBIN A1c (test code = 07458) 7.7 % HEMOGLOBIN [id number] 00:00:00 Test Item Value Reference Range Interpretation Comments HEMOGLOBIN A1c (test code = 57421) 7.7 % COMPREHENSIVE METABOLIC [id number] 00:00:00 Test Item Value Reference Range Interpretation Comments GLUCOSE (test code = 2217) 154 MG/DL BUN (test code = 2208) 12 MG/DL CREATININE (test code = 2214) 0.54 MG/DL eGFR AMER. (test code 139 ML/MIN/1.73 = 73491) eGFR NON- AMER. (test 120 ML/MIN/1.73 code = 85022) CALC BUN/CREAT (test code = 22 RATIO [...] code = 2219) 22 U/L COMPREHENSIVE METABOLIC [id number] 00:00:00 Test Item Value Reference Range Interpretation Comments GLUCOSE (test code = 2217) 154 MG/DL BUN (test code = 2208) 12 MG/DL CREATININE (test code = 2214) 0.54 MG/DL eGFR AMER. (test code 139 ML/MIN/1.73 = 59161) eGFR NON- AMER. (test 120 ML/MIN/1.73 code = 98638) CALC BUN/CREAT (test code = 22 RATIO [...] (test code = 2219) 22 U/L LIPID [id number] 00:00:00 Test Item Value Reference Range Interpretation Comments CHOLESTEROL (test code = 2210) 243 MG/DL TRIGLYCERIDES (test code = 2232) 1140 MG/DL HDL CHOLESTEROL (test code = 31 MG/DL 2220) CALC LDL CHOL (test code = 2237) NOTE MG/DL RISK RATIO LDL/HDL (test code = (NOTE) RATIO 2238) COMPREHENSIVE METABOLIC [id number] 00:00:00 Test Item Value Reference Range Interpretation Comments GLUCOSE (test code = 2217) 154 MG/DL BUN (test code = 2208) 12 MG/DL CREATININE (test code = 2214) 0.54 MG/DL eGFR AMER. (test code 139 ML/MIN/1.73 = 93682) eGFR NON- AMER. (test 120 ML/MIN/1.73 code = 43190) CALC BUN/CREAT (test code = 22 RATIO [...] (test code = 2219) 22 U/L LIPID [id number] 00:00:00 Test Item Value Reference Range Interpretation Comments CHOLESTEROL (test code = 2210) 243 MG/DL TRIGLYCERIDES (test code = 2232) 1140 MG/DL HDL CHOLESTEROL (test code = 31 MG/DL 0) CALC LDL CHOL (test code = 2237) NOTE MG/DL RISK RATIO LDL/HDL (test code = (NOTE) RATIO 2238) CBC W/AUTO [id number] 00:00:00 Test Item Value Reference Range Interpretation [...] code = 1015) 229 K/UL CBC W/AUTO [id number] 00:00:00 Test Item Value Reference Range Interpretation [...] code = 1015) 229 K/UL CBC W/AUTO [id number] 00:00:00 Test Item Value Reference Range Interpretation [...] (test code = 1015) 229 K/UL HEMOGLOBIN [id number] 00:00:00 Test Item Value Reference Range Interpretation Comments HEMOGLOBIN A1c (test code = 04286) 7.7 % HEMOGLOBIN [id number] 00:00:00 Test Item Value Reference Range Interpretation Comments HEMOGLOBIN A1c (test code = 14146) 7.7 % HEMOGLOBIN [id number] 00:00:00 Test Item Value Reference Range Interpretation Comments HEMOGLOBIN A1c (test code = 21377) 7.7 % LIPID [id number] 00:00:00 Test Item Value Reference Range Interpretation Comments CHOLESTEROL (test code = 2210) 243 MG/DL TRIGLYCERIDES (test code = 2232) 1140 MG/DL HDL CHOLESTEROL (test code = 31 MG/DL 2220) CALC LDL CHOL (test code = 2237) NOTE MG/DL RISK RATIO LDL/HDL (test code = (NOTE) RATIO 2238) CBC W/AUTO [id number] 00:00:00 Test Item Value Reference Range Interpretation [...] code = 1015) 229 K/UL CBC W/AUTO [id number] 00:00:00 Test Item Value Reference Range Interpretation [...] code = 1015) 229 K/UL COMPREHENSIVE METABOLIC [id number] 00:00:00 Test Item Value Reference Range Interpretation Comments GLUCOSE (test code = 2217) 154 MG/DL BUN (test code = 2208) 12 MG/DL CREATININE (test code = 2214) 0.54 MG/DL eGFR AMER. (test code 139 ML/MIN/1.73 = 59438) eGFR NON- AMER. (test 120 ML/MIN/1.73 code = 82698) CALC BUN/CREAT (test code = 22 RATIO [...] code = 2219) 22 U/L COMPREHENSIVE METABOLIC [id number] 00:00:00 Test Item Value Reference Range Interpretation Comments GLUCOSE (test code = 2217) 154 MG/DL BUN (test code = 2208) 12 MG/DL CREATININE (test code = 2214) 0.54 MG/DL eGFR AMER. (test code 139 ML/MIN/1.73 = 79241) eGFR NON- AMER. (test 120 ML/MIN/1.73 code = 49492) CALC BUN/CREAT (test code = 22 RATIO [...] (test code = 2219) 22 U/L HEMOGLOBIN [id number] 00:00:00 Test Item Value Reference Range Interpretation Comments HEMOGLOBIN A1c (test code = 95921) 7.7 % LIPID [id number] 00:00:00 Test Item Value Reference Range Interpretation Comments CHOLESTEROL (test code = 2210) 243 MG/DL TRIGLYCERIDES (test code = 2232) 1140 MG/DL HDL CHOLESTEROL (test code = 31 MG/DL 2220) CALC LDL CHOL (test code = 2237) NOTE MG/DL RISK RATIO LDL/HDL (test code = (NOTE) RATIO 2238) LIPID [id number] 00:00:00 Test Item Value Reference Range Interpretation Comments CHOLESTEROL (test code = 2210) 243 MG/DL TRIGLYCERIDES (test code = 2232) 1140 MG/DL HDL CHOLESTEROL (test code = 31 MG/DL 2220) CALC LDL CHOL (test code = 2237) NOTE MG/DL RISK RATIO LDL/HDL (test code = (NOTE) RATIO 2238) HEMOGLOBIN [id number] 00:00:00 Test Item Value Reference Range Interpretation Comments HEMOGLOBIN A1c (test code = 06653) 7.7 % CBC W/AUTO [id number] 00:00:00 Test Item Value Reference Range Interpretation [...] code = 1015) 229 K/UL CBC W/AUTO [id number] 00:00:00 Test Item Value Reference Range Interpretation [...] code = 1015) 229 K/UL CBC W/AUTO [id number] 00:00:00 Test Item Value Reference Range Interpretation [...] (test code = 1015) 229 K/UL HEMOGLOBIN [id number] 00:00:00 Test Item Value Reference Range Interpretation Comments HEMOGLOBIN A1c (test code = 41539) 7.7 % HEMOGLOBIN [id number] 00:00:00 Test Item Value Reference Range Interpretation Comments HEMOGLOBIN A1c (test code = 94801) 7.7 % HEMOGLOBIN [id number] 00:00:00 Test Item Value Reference Range Interpretation Comments HEMOGLOBIN A1c (test code = 48997) 7.7 % COMPREHENSIVE METABOLIC [id number] 00:00:00 Test Item Value Reference Range Interpretation Comments GLUCOSE (test code = 2217) 154 MG/DL BUN (test code = 2208) 12 MG/DL CREATININE (test code = 2214) 0.54 MG/DL eGFR AMER. (test code 139 ML/MIN/1.73 = 13972) eGFR NON- AMER. (test 120 ML/MIN/1.73 code = 57134) CALC BUN/CREAT (test code = 22 RATIO [...] code = 2219) 22 U/L COMPREHENSIVE METABOLIC [id number] 00:00:00 Test Item Value Reference Range Interpretation Comments GLUCOSE (test code = 2217) 154 MG/DL BUN (test code = 2208) 12 MG/DL CREATININE (test code = 2214) 0.54 MG/DL eGFR AMER. (test code 139 ML/MIN/1.73 = 07946) eGFR NON- AMER. (test 120 ML/MIN/1.73 code = 52867) CALC BUN/CREAT (test code = 22 RATIO [...] (test code = 2219) 22 U/L LIPID [id number] 00:00:00 Test Item Value Reference Range Interpretation Comments CHOLESTEROL (test code = 2210) 243 MG/DL TRIGLYCERIDES (test code = 2232) 1140 MG/DL HDL CHOLESTEROL (test code = 31 MG/DL 2220) CALC LDL CHOL (test code = 2237) NOTE MG/DL RISK RATIO LDL/HDL (test code = (NOTE) RATIO 2238) LIPID [id number] 00:00:00 Test Item Value Reference Range Interpretation Comments CHOLESTEROL (test code = 2210) 243 MG/DL TRIGLYCERIDES (test code = 2232) 1140 MG/DL HDL CHOLESTEROL (test code = 31 MG/DL 2220) CALC LDL CHOL (test code = 2237) NOTE MG/DL RISK RATIO LDL/HDL (test code = (NOTE) RATIO 2238) CBC W/AUTO [id number] 00:00:00 Test Item Value Reference Range Interpretation [...] code = 1015) 229 K/UL CBC W/AUTO [id number] 00:00:00 Test Item Value Reference Range Interpretation [...] code = 1015) 229 K/UL CBC W/AUTO [id number] 00:00:00 Test Item Value Reference Range Interpretation [...] (test code = 1015) 229 K/UL HEMOGLOBIN [id number] 00:00:00 Test Item Value Reference Range Interpretation Comments HEMOGLOBIN A1c (test code = 29781) 7.7 % HEMOGLOBIN [id number] 00:00:00 Test Item Value Reference Range Interpretation Comments HEMOGLOBIN A1c (test code = 89640) 7.7 % HEMOGLOBIN [id number] 00:00:00 Test Item Value Reference Range Interpretation Comments HEMOGLOBIN A1c (test code = 22113) 7.7 % COMPREHENSIVE METABOLIC [id number] 00:00:00 Test Item Value Reference Range Interpretation Comments GLUCOSE (test code = 2217) 154 MG/DL BUN (test code = 2208) 12 MG/DL CREATININE (test code = 2214) 0.54 MG/DL eGFR AMER. (test code 139 ML/MIN/1.73 = 10356) eGFR NON- AMER. (test 120 ML/MIN/1.73 code = 68782) CALC BUN/CREAT (test code = 22 RATIO [...] code = 2219) 22 U/L COMPREHENSIVE METABOLIC [id number] 00:00:00 Test Item Value Reference Range Interpretation Comments GLUCOSE (test code = 2217) 154 MG/DL BUN (test code = 2208) 12 MG/DL CREATININE (test code = 2214) 0.54 MG/DL eGFR AMER. (test code 139 ML/MIN/1.73 = 28485) eGFR NON- AMER. (test 120 ML/MIN/1.73 code = 75025) CALC BUN/CREAT (test code = 22 RATIO [...] (test code = 2219) 22 U/L LIPID [id number] 00:00:00 Test Item Value Reference Range Interpretation Comments CHOLESTEROL (test code = 2210) 243 MG/DL TRIGLYCERIDES (test code = 2232) 1140 MG/DL HDL CHOLESTEROL (test code = 31 MG/DL 2220) CALC LDL CHOL (test code = 2237) NOTE MG/DL RISK RATIO LDL/HDL (test code = (NOTE) RATIO 2238) LIPID [id number] 00:00:00 Test Item Value Reference Range Interpretation Comments CHOLESTEROL (test code = 2210) 243 MG/DL TRIGLYCERIDES (test code = 2232) 1140 MG/DL HDL CHOLESTEROL (test code = 31 MG/DL 2220) CALC LDL CHOL (test code = 2237) NOTE MG/DL RISK RATIO LDL/HDL (test code = (NOTE) RATIO 2238) CBC W/AUTO [id number] 00:00:00 Test Item Value Reference Range Interpretation [...] code = 1015) 229 K/UL CBC W/AUTO [id number] 00:00:00 Test Item Value Reference Range Interpretation [...] code = 1015) 229 K/UL CBC W/AUTO [id number] 00:00:00 Test Item Value Reference Range Interpretation [...] (test code = 1015) 229 K/UL HEMOGLOBIN [id number] 00:00:00 Test Item Value Reference Range Interpretation Comments HEMOGLOBIN A1c (test code = 55996) 7.7 % HEMOGLOBIN [id number] 00:00:00 Test Item Value Reference Range Interpretation Comments HEMOGLOBIN A1c (test code = 73608) 7.7 % HEMOGLOBIN [id number] 00:00:00 Test Item Value Reference Range Interpretation Comments HEMOGLOBIN A1c (test code = 97355) 7.7 % [id number] 00:00:00 Test Item Value Reference Range Interpretation Comments MAGNESIUM (test code = 2226) 1.4 MG/DL [id number] 00:00:00 Test Item Value Reference Range Interpretation Comments MAGNESIUM (test code = 2226) 1.4 MG/DL [id number] 00:00:00 Test Item Value Reference Range Interpretation Comments MAGNESIUM (test code = 2226) 1.4 MG/DL COMPREHENSIVE METABOLIC [id number] 00:00:00 Test Item Value Reference Range Interpretation Comments GLUCOSE (test code = 2217) 234 MG/DL BUN (test code = 2208) 17 MG/DL CREATININE (test code = 2214) 0.54 MG/DL eGFR AMER. (test code 139 ML/MIN/1.73 = 78197) eGFR NON- AMER. (test 120 ML/MIN/1.73 code = 10967) CALC BUN/CREAT (test code = 31 RATIO [...] code = 2219) 22 U/L COMPREHENSIVE METABOLIC [id number] 00:00:00 Test Item Value Reference Range Interpretation Comments GLUCOSE (test code = 2217) 234 MG/DL BUN (test code = 2208) 17 MG/DL CREATININE (test code = 2214) 0.54 MG/DL eGFR AMER. (test code 139 ML/MIN/1.73 = 50852) eGFR NON- AMER. (test 120 ML/MIN/1.73 code = 00597) CALC BUN/CREAT (test code = 31 RATIO [...] (test code = 2219) 22 U/L HEMOGLOBIN [id number] 00:00:00 Test Item Value Reference Range Interpretation Comments HEMOGLOBIN A1c (test code = 32010) 7.7 % HEMOGLOBIN [id number] 00:00:00 Test Item Value Reference Range Interpretation Comments HEMOGLOBIN A1c (test code = 64142) 7.7 % HEMOGLOBIN [id number] 00:00:00 Test Item Value Reference Range Interpretation Comments HEMOGLOBIN A1c (test code = 98901) 7.7 % CBC W/AUTO [id number] 00:00:00 Test Item Value Reference Range Interpretation [...] code = 1015) 224 K/UL CBC W/AUTO [id number] 00:00:00 Test Item Value Reference Range Interpretation [...] code = 1015) 224 K/UL CBC W/AUTO [id number] 00:00:00 Test Item Value Reference Range Interpretation [...] TSH (test code = 2821) <0.10 UIU/ML [id number] 00:00:00 Test Item Value Reference Range Interpretation Comments MAGNESIUM (test code = 2226) 1.4 MG/DL [id number] 00:00:00 Test Item Value Reference Range Interpretation Comments MAGNESIUM (test code = 2226) 1.4 MG/DL [id number] 00:00:00 Test Item Value Reference Range Interpretation Comments MAGNESIUM (test code = 2226) 1.4 MG/DL COMPREHENSIVE METABOLIC [id number] 00:00:00 Test Item Value Reference Range Interpretation Comments GLUCOSE (test code = 2217) 234 MG/DL BUN (test code = 2208) 17 MG/DL CREATININE (test code = 2214) 0.54 MG/DL eGFR AMER. (test code 139 ML/MIN/1.73 = 42075) eGFR NON- AMER. (test 120 ML/MIN/1.73 code = 71270) CALC BUN/CREAT (test code = 31 RATIO [...] code = 2219) 22 U/L COMPREHENSIVE METABOLIC [id number] 00:00:00 Test Item Value Reference Range Interpretation Comments GLUCOSE (test code = 2217) 234 MG/DL BUN (test code = 2208) 17 MG/DL CREATININE (test code = 2214) 0.54 MG/DL eGFR AMER. (test code 139 ML/MIN/1.73 = 28940) eGFR NON- AMER. (test 120 ML/MIN/1.73 code = 98057) CALC BUN/CREAT (test code = 31 RATIO [...] (test code = 2219) 22 U/L HEMOGLOBIN [id number] 00:00:00 Test Item Value Reference Range Interpretation Comments HEMOGLOBIN A1c (test code = 86844) 7.7 % HEMOGLOBIN [id number] 00:00:00 Test Item Value Reference Range Interpretation Comments HEMOGLOBIN A1c (test code = 84709) 7.7 % HEMOGLOBIN [id number] 00:00:00 Test Item Value Reference Range Interpretation Comments HEMOGLOBIN A1c (test code = 70289) 7.7 % CBC W/AUTO [id number] 00:00:00 Test Item Value Reference Range Interpretation [...] code = 1015) 224 K/UL CBC W/AUTO [id number] 00:00:00 Test Item Value Reference Range Interpretation [...] code = 1015) 224 K/UL CBC W/AUTO [id number] 00:00:00 Test Item Value Reference Range Interpretation [...] TSH (test code = 2821) <0.10 UIU/ML [id number] 00:00:00 Test Item Value Reference Range Interpretation Comments MAGNESIUM (test code = 2226) 1.4 MG/DL [id number] 00:00:00 Test Item Value Reference Range Interpretation Comments MAGNESIUM (test code = 2226) 1.4 MG/DL [id number] 00:00:00 Test Item Value Reference Range Interpretation Comments MAGNESIUM (test code = 2226) 1.4 MG/DL COMPREHENSIVE METABOLIC [id number] 00:00:00 Test Item Value Reference Range Interpretation Comments GLUCOSE (test code = 2217) 234 MG/DL BUN (test code = 2208) 17 MG/DL CREATININE (test code = 2214) 0.54 MG/DL eGFR AMER. (test code 139 ML/MIN/1.73 = 00832) eGFR NON- AMER. (test 120 ML/MIN/1.73 code = 13357) CALC BUN/CREAT (test code = 31 RATIO [...] code = 2219) 22 U/L COMPREHENSIVE METABOLIC [id number] 00:00:00 Test Item Value Reference Range Interpretation Comments GLUCOSE (test code = 2217) 234 MG/DL BUN (test code = 2208) 17 MG/DL CREATININE (test code = 2214) 0.54 MG/DL eGFR AMER. (test code 139 ML/MIN/1.73 = 84252) eGFR NON- AMER. (test 120 ML/MIN/1.73 code = 25277) CALC BUN/CREAT (test code = 31 RATIO [...] (test code = 2219) 22 U/L HEMOGLOBIN [id number] 00:00:00 Test Item Value Reference Range Interpretation Comments HEMOGLOBIN A1c (test code = 93316) 7.7 % HEMOGLOBIN [id number] 00:00:00 Test Item Value Reference Range Interpretation Comments HEMOGLOBIN A1c (test code = 02399) 7.7 % HEMOGLOBIN [id number] 00:00:00 Test Item Value Reference Range Interpretation Comments HEMOGLOBIN A1c (test code = 45610) 7.7 % CBC W/AUTO [id number] 00:00:00 Test Item Value Reference Range Interpretation [...] code = 1015) 224 K/UL CBC W/AUTO [id number] 00:00:00 Test Item Value Reference Range Interpretation [...] code = 1015) 224 K/UL CBC W/AUTO [id number] 00:00:00 Test Item Value Reference Range Interpretation [...] TSH (test code = 2821) <0.10 UIU/ML [id number] 00:00:00 Test Item Value Reference Range Interpretation Comments MAGNESIUM (test code = 2226) 1.4 MG/DL [id number] 00:00:00 Test Item Value Reference Range Interpretation Comments MAGNESIUM (test code = 2226) 1.4 MG/DL [id number] 00:00:00 Test Item Value Reference Range Interpretation Comments MAGNESIUM (test code = 2226) 1.4 MG/DL COMPREHENSIVE METABOLIC [id number] 00:00:00 Test Item Value Reference Range Interpretation Comments GLUCOSE (test code = 2217) 234 MG/DL BUN (test code = 2208) 17 MG/DL CREATININE (test code = 2214) 0.54 MG/DL eGFR AMER. (test code 139 ML/MIN/1.73 = 02360) eGFR NON- AMER. (test 120 ML/MIN/1.73 code = 35697) CALC BUN/CREAT (test code = 31 RATIO [...] code = 2219) 22 U/L COMPREHENSIVE METABOLIC [id number] 00:00:00 Test Item Value Reference Range Interpretation Comments GLUCOSE (test code = 2217) 234 MG/DL BUN (test code = 2208) 17 MG/DL CREATININE (test code = 2214) 0.54 MG/DL eGFR AMER. (test code 139 ML/MIN/1.73 = 66053) eGFR NON- AMER. (test 120 ML/MIN/1.73 code = 47620) CALC BUN/CREAT (test code = 31 RATIO [...] (test code = 2219) 22 U/L HEMOGLOBIN [id number] 00:00:00 Test Item Value Reference Range Interpretation Comments HEMOGLOBIN A1c (test code = 51134) 7.7 % HEMOGLOBIN [id number] 00:00:00 Test Item Value Reference Range Interpretation Comments HEMOGLOBIN A1c (test code = 56332) 7.7 % HEMOGLOBIN [id number] 00:00:00 Test Item Value Reference Range Interpretation Comments HEMOGLOBIN A1c (test code = 78021) 7.7 % CBC W/AUTO [id number] 00:00:00 Test Item Value Reference Range Interpretation [...] code = 1015) 224 K/UL CBC W/AUTO [id number] 00:00:00 Test Item Value Reference Range Interpretation [...] code = 1015) 224 K/UL CBC W/AUTO [id number] 00:00:00 Test Item Value Reference Range Interpretation [...] TSH (test code = 2821) <0.10 UIU/ML [id number] 00:00:00 Test Item Value Reference Range Interpretation Comments MAGNESIUM (test code = 2226) 1.4 MG/DL [id number] 00:00:00 Test Item Value Reference Range Interpretation Comments MAGNESIUM (test code = 2226) 1.4 MG/DL [id number] 00:00:00 Test Item Value Reference Range Interpretation Comments MAGNESIUM (test code = 2226) 1.4 MG/DL COMPREHENSIVE METABOLIC [id number] 00:00:00 Test Item Value Reference Range Interpretation Comments GLUCOSE (test code = 2217) 234 MG/DL BUN (test code = 2208) 17 MG/DL CREATININE (test code = 2214) 0.54 MG/DL eGFR AMER. (test code 139 ML/MIN/1.73 = 60010) eGFR NON- AMER. (test 120 ML/MIN/1.73 code = 67615) CALC BUN/CREAT (test code = 31 RATIO [...] code = 2219) 22 U/L COMPREHENSIVE METABOLIC [id number] 00:00:00 Test Item Value Reference Range Interpretation Comments GLUCOSE (test code = 2217) 234 MG/DL BUN (test code = 2208) 17 MG/DL CREATININE (test code = 2214) 0.54 MG/DL eGFR AMER. (test code 139 ML/MIN/1.73 = 06684) eGFR NON- AMER. (test 120 ML/MIN/1.73 code = 01201) CALC BUN/CREAT (test code = 31 RATIO [...] (test code = 2219) 22 U/L HEMOGLOBIN [id number] 00:00:00 Test Item Value Reference Range Interpretation Comments HEMOGLOBIN A1c (test code = 71764) 7.7 % HEMOGLOBIN [id number] 00:00:00 Test Item Value Reference Range Interpretation Comments HEMOGLOBIN A1c (test code = 23772) 7.7 % HEMOGLOBIN [id number] 00:00:00 Test Item Value Reference Range Interpretation Comments HEMOGLOBIN A1c (test code = 07603) 7.7 % CBC W/AUTO [id number] 00:00:00 Test Item Value Reference Range Interpretation [...] code = 1015) 224 K/UL CBC W/AUTO [id number] 00:00:00 Test Item Value Reference Range Interpretation [...] code = 1015) 224 K/UL CBC W/AUTO [id number] 00:00:00 Test Item Value Reference Range Interpretation [...] TSH (test code = 2821) <0.10 UIU/ML [id number] 00:00:00 Test Item Value Reference Range Interpretation Comments MAGNESIUM (test code = 2226) 1.4 MG/DL [id number] 00:00:00 Test Item Value Reference Range Interpretation Comments MAGNESIUM (test code = 2226) 1.4 MG/DL [id number] 00:00:00 Test Item Value Reference Range Interpretation Comments MAGNESIUM (test code = 2226) 1.4 MG/DL COMPREHENSIVE METABOLIC [id number] 00:00:00 Test Item Value Reference Range Interpretation Comments GLUCOSE (test code = 2217) 234 MG/DL BUN (test code = 2208) 17 MG/DL CREATININE (test code = 2214) 0.54 MG/DL eGFR AMER. (test code 139 ML/MIN/1.73 = 42169) eGFR NON- AMER. (test 120 ML/MIN/1.73 code = 45133) CALC BUN/CREAT (test code = 31 RATIO [...] code = 2219) 22 U/L COMPREHENSIVE METABOLIC [id number] 00:00:00 Test Item Value Reference Range Interpretation Comments GLUCOSE (test code = 2217) 234 MG/DL BUN (test code = 2208) 17 MG/DL CREATININE (test code = 2214) 0.54 MG/DL eGFR AMER. (test code 139 ML/MIN/1.73 = 64246) eGFR NON- AMER. (test 120 ML/MIN/1.73 code = 61465) CALC BUN/CREAT (test code = 31 RATIO [...] (test code = 2219) 22 U/L HEMOGLOBIN [id number] 00:00:00 Test Item Value Reference Range Interpretation Comments HEMOGLOBIN A1c (test code = 16796) 7.7 % HEMOGLOBIN [id number] 00:00:00 Test Item Value Reference Range Interpretation Comments HEMOGLOBIN A1c (test code = 98996) 7.7 % HEMOGLOBIN [id number] 00:00:00 Test Item Value Reference Range Interpretation Comments HEMOGLOBIN A1c (test code = 64989) 7.7 % CBC W/AUTO [id number] 00:00:00 Test Item Value Reference Range Interpretation [...] code = 1015) 224 K/UL CBC W/AUTO [id number] 00:00:00 Test Item Value Reference Range Interpretation [...] code = 1015) 224 K/UL CBC W/AUTO [id number] 00:00:00 Test Item Value Reference Range Interpretation [...] TSH (test code = 2821) <0.10 UIU/ML [id number] 00:00:00 Test Item Value Reference Range Interpretation Comments MAGNESIUM (test code = 2226) 1.4 MG/DL [id number] 00:00:00 Test Item Value Reference Range Interpretation Comments MAGNESIUM (test code = 2226) 1.4 MG/DL [id number] 00:00:00 Test Item Value Reference Range Interpretation Comments MAGNESIUM (test code = 2226) 1.4 MG/DL [id number] 00:00:00 Test Item Value Reference Range Interpretation Comments MAGNESIUM (test code = 2226) 1.4 MG/DL COMPREHENSIVE METABOLIC [id number] 00:00:00 Test Item Value Reference Range Interpretation Comments GLUCOSE (test code = 2217) 234 MG/DL BUN (test code = 2208) 17 MG/DL CREATININE (test code = 2214) 0.54 MG/DL eGFR AMER. (test code 139 ML/MIN/1.73 = 02949) eGFR NON- AMER. (test 120 ML/MIN/1.73 code = 50843) CALC BUN/CREAT (test code = 31 RATIO [...] code = 2219) 22 U/L COMPREHENSIVE METABOLIC [id number] 00:00:00 Test Item Value Reference Range Interpretation Comments GLUCOSE (test code = 2217) 234 MG/DL BUN (test code = 2208) 17 MG/DL CREATININE (test code = 2214) 0.54 MG/DL eGFR AMER. (test code 139 ML/MIN/1.73 = 84868) eGFR NON- AMER. (test 120 ML/MIN/1.73 code = 33260) CALC BUN/CREAT (test code = 31 RATIO [...] (test code = 2219) 22 U/L HEMOGLOBIN [id number] 00:00:00 Test Item Value Reference Range Interpretation Comments HEMOGLOBIN A1c (test code = 39208) 7.7 % HEMOGLOBIN [id number] 00:00:00 Test Item Value Reference Range Interpretation Comments HEMOGLOBIN A1c (test code = 84462) 7.7 % HEMOGLOBIN [id number] 00:00:00 Test Item Value Reference Range Interpretation Comments HEMOGLOBIN A1c (test code = 94296) 7.7 % [id number] 00:00:00 Test Item Value Reference Range Interpretation Comments MAGNESIUM (test code = 2226) 1.4 MG/DL CBC W/AUTO [id number] 00:00:00 Test Item Value Reference Range Interpretation [...] code = 1015) 224 K/UL CBC W/AUTO [id number] 00:00:00 Test Item Value Reference Range Interpretation [...] code = 1015) 224 K/UL CBC W/AUTO [id number] 00:00:00 Test Item Value Reference Range Interpretation [...] code = 2821) <0.10 UIU/ML COMPREHENSIVE METABOLIC [id number] 00:00:00 Test Item Value Reference Range Interpretation Comments GLUCOSE (test code = 2217) 234 MG/DL BUN (test code = 2208) 17 MG/DL CREATININE (test code = 2214) 0.54 MG/DL eGFR AMER. (test code 139 ML/MIN/1.73 = 66528) eGFR NON- AMER. (test 120 ML/MIN/1.73 code = 14078) CALC BUN/CREAT (test code = 31 RATIO [...] (test code = 2219) 22 U/L HEMOGLOBIN [id number] 00:00:00 Test Item Value Reference Range Interpretation Comments HEMOGLOBIN A1c (test code = 07240) 7.7 % HEMOGLOBIN [id number] 00:00:00 Test Item Value Reference Range Interpretation Comments HEMOGLOBIN A1c (test code = 81678) 7.7 % [id number] 00:00:00 Test Item Value Reference Range Interpretation Comments MAGNESIUM (test code = 2226) 1.4 MG/DL [id number] 00:00:00 Test Item Value Reference Range Interpretation Comments MAGNESIUM (test code = 2226) 1.4 MG/DL [id number] 00:00:00 Test Item Value Reference Range Interpretation Comments MAGNESIUM (test code = 2226) 1.4 MG/DL CBC W/AUTO [id number] 00:00:00 Test Item Value Reference Range Interpretation [...] code = 1015) 224 K/UL COMPREHENSIVE METABOLIC [id number] 00:00:00 Test Item Value Reference Range Interpretation Comments GLUCOSE (test code = 2217) 234 MG/DL BUN (test code = 2208) 17 MG/DL CREATININE (test code = 2214) 0.54 MG/DL eGFR AMER. (test code 139 ML/MIN/1.73 = 80297) eGFR NON- AMER. (test 120 ML/MIN/1.73 code = 28180) CALC BUN/CREAT (test code = 31 RATIO [...] code = 2219) 22 U/L CBC W/AUTO [id number] 00:00:00 Test Item Value Reference Range Interpretation [...] code = 1015) 224 K/UL COMPREHENSIVE METABOLIC [id number] 00:00:00 Test Item Value Reference Range Interpretation Comments GLUCOSE (test code = 2217) 234 MG/DL BUN (test code = 2208) 17 MG/DL CREATININE (test code = 2214) 0.54 MG/DL eGFR AMER. (test code 139 ML/MIN/1.73 = 96221) eGFR NON- AMER. (test 120 ML/MIN/1.73 code = 70369) CALC BUN/CREAT (test code = 31 RATIO [...] (test code = 2219) 22 U/L HEMOGLOBIN [id number] 00:00:00 Test Item Value Reference Range Interpretation Comments HEMOGLOBIN A1c (test code = 46648) 7.7 % HEMOGLOBIN [id number] 00:00:00 Test Item Value Reference Range Interpretation Comments HEMOGLOBIN A1c (test code = 31188) 7.7 % HEMOGLOBIN [id number] 00:00:00 Test Item Value Reference Range Interpretation Comments HEMOGLOBIN A1c (test code = 85042) 7.7 % THYROID II PROFILE (T3U, T4, T7, TSH)[id number] 00:00:00 Test Item Value Reference Range Interpretation Comments T3 UPTAKE (test code = 2817) 24.7 % T4 (THYROXINE) (test code = 3.7 UG/DL 2819) CALCULATED T7 (FTI) (test code = 0.91 2820) TSH (test code = 2821) <0.10 UIU/ML CBC W/AUTO [id number] 00:00:00 Test Item Value Reference Range Interpretation [...] code = 1015) 224 K/UL CBC W/AUTO [id number] 00:00:00 Test Item Value Reference Range Interpretation [...] code = 1015) 224 K/UL CBC W/AUTO [id number] 00:00:00 Test Item Value Reference Range Interpretation [...] TSH (test code = 2821) <0.10 UIU/ML [id number] 00:00:00 Test Item Value Reference Range Interpretation Comments MAGNESIUM (test code = 2226) 1.4 MG/DL [id number] 00:00:00 Test Item Value Reference Range Interpretation Comments MAGNESIUM (test code = 2226) 1.4 MG/DL [id number] 00:00:00 Test Item Value Reference Range Interpretation Comments MAGNESIUM (test code = 2226) 1.4 MG/DL COMPREHENSIVE METABOLIC [id number] 00:00:00 Test Item Value Reference Range Interpretation Comments GLUCOSE (test code = 2217) 234 MG/DL BUN (test code = 2208) 17 MG/DL CREATININE (test code = 2214) 0.54 MG/DL eGFR AMER. (test code 139 ML/MIN/1.73 = 34409) eGFR NON- AMER. (test 120 ML/MIN/1.73 code = 35232) CALC BUN/CREAT (test code = 31 RATIO [...] code = 2219) 22 U/L COMPREHENSIVE METABOLIC [id number] 00:00:00 Test Item Value Reference Range Interpretation Comments GLUCOSE (test code = 2217) 234 MG/DL BUN (test code = 2208) 17 MG/DL CREATININE (test code = 2214) 0.54 MG/DL eGFR AMER. (test code 139 ML/MIN/1.73 = 74465) eGFR NON- AMER. (test 120 ML/MIN/1.73 code = 24706) CALC BUN/CREAT (test code = 31 RATIO [...] (test code = 2219) 22 U/L HEMOGLOBIN [id number] 00:00:00 Test Item Value Reference Range Interpretation Comments HEMOGLOBIN A1c (test code = 43756) 7.7 % HEMOGLOBIN [id number] 00:00:00 Test Item Value Reference Range Interpretation Comments HEMOGLOBIN A1c (test code = 55520) 7.7 % HEMOGLOBIN [id number] 00:00:00 Test Item Value Reference Range Interpretation Comments HEMOGLOBIN A1c (test code = 19459) 7.7 % CBC W/AUTO [id number] 00:00:00 Test Item Value Reference Range Interpretation [...] code = 1015) 224 K/UL CBC W/AUTO [id number] 00:00:00 Test Item Value Reference Range Interpretation [...] code = 1015) 224 K/UL CBC W/AUTO [id number] 00:00:00 Test Item Value Reference Range Interpretation [...] TSH (test code = 2821) <0.10 UIU/ML [id number] 00:00:00 Test Item Value Reference Range Interpretation Comments MAGNESIUM (test code = 2226) 1.4 MG/DL [id number] 00:00:00 Test Item Value Reference Range Interpretation Comments MAGNESIUM (test code = 2226) 1.4 MG/DL [id number] 00:00:00 Test Item Value Reference Range Interpretation Comments MAGNESIUM (test code = 2226) 1.4 MG/DL COMPREHENSIVE METABOLIC [id number] 00:00:00 Test Item Value Reference Range Interpretation Comments GLUCOSE (test code = 2217) 234 MG/DL BUN (test code = 2208) 17 MG/DL CREATININE (test code = 2214) 0.54 MG/DL eGFR AMER. (test code 139 ML/MIN/1.73 = 84776) eGFR NON- AMER. (test 120 ML/MIN/1.73 code = 22433) CALC BUN/CREAT (test code = 31 RATIO [...] code = 2219) 22 U/L COMPREHENSIVE METABOLIC [id number] 00:00:00 Test Item Value Reference Range Interpretation Comments GLUCOSE (test code = 2217) 234 MG/DL BUN (test code = 2208) 17 MG/DL CREATININE (test code = 2214) 0.54 MG/DL eGFR AMER. (test code 139 ML/MIN/1.73 = 82244) eGFR NON- AMER. (test 120 ML/MIN/1.73 code = 21615) CALC BUN/CREAT (test code = 31 RATIO [...] (test code = 2219) 22 U/L HEMOGLOBIN [id number] 00:00:00 Test Item Value Reference Range Interpretation Comments HEMOGLOBIN A1c (test code = 70798) 7.7 % HEMOGLOBIN [id number] 00:00:00 Test Item Value Reference Range Interpretation Comments HEMOGLOBIN A1c (test code = 03040) 7.7 % HEMOGLOBIN [id number] 00:00:00 Test Item Value Reference Range Interpretation Comments HEMOGLOBIN A1c (test code = 67042) 7.7 % CBC W/AUTO [id number] 00:00:00 Test Item Value Reference Range Interpretation [...] code = 1015) 224 K/UL CBC W/AUTO [id number] 00:00:00 Test Item Value Reference Range Interpretation [...] code = 1015) 224 K/UL CBC W/AUTO [id number] 00:00:00 Test Item Value Reference Range Interpretation [...] <0.10 UIU/ML MARKO (ANTI-NUCLEAR AB) WITH REFLEX [id number] 00:00:00 Test Item Value Reference Range Interpretation Comments ANTI-NUCLEAR ANTIBODIES (test code = NEGATIVE 3506) MARKO (ANTI-NUCLEAR AB) WITH REFLEX [id number] 00:00:00 Test Item Value Reference Range Interpretation Comments ANTI-NUCLEAR ANTIBODIES (test code = NEGATIVE 3506) DHEA [id number] 00:00:00 Test Item Value Reference Range Interpretation Comments DHEA SULFATE (test code = 4225) 77 UG/DL DHEA [id number] 00:00:00 Test Item Value Reference Range Interpretation Comments DHEA SULFATE (test code = 4225) 77 UG/DL MARKO (ANTI-NUCLEAR AB) WITH REFLEX [id number] 00:00:00 Test Item Value Reference Range Interpretation Comments ANTI-NUCLEAR ANTIBODIES (test code = NEGATIVE 3506) MARKO (ANTI-NUCLEAR AB) WITH REFLEX [id number] 00:00:00 Test Item Value Reference Range Interpretation Comments ANTI-NUCLEAR ANTIBODIES (test code = NEGATIVE 3506) DHEA [id number] 00:00:00 Test Item Value Reference Range Interpretation Comments DHEA SULFATE (test code = 4225) 77 UG/DL DHEA [id number] 00:00:00 Test Item Value Reference Range Interpretation Comments DHEA SULFATE (test code = 4225) 77 UG/DL MARKO (ANTI-NUCLEAR AB) WITH REFLEX [id number] 00:00:00 Test Item Value Reference Range Interpretation Comments ANTI-NUCLEAR ANTIBODIES (test code = NEGATIVE 3506) MARKO (ANTI-NUCLEAR AB) WITH REFLEX [id number] 00:00:00 Test Item Value Reference Range Interpretation Comments ANTI-NUCLEAR ANTIBODIES (test code = NEGATIVE 3506) DHEA [id number] 00:00:00 Test Item Value Reference Range Interpretation Comments DHEA SULFATE (test code = 4225) 77 UG/DL DHEA [id number] 00:00:00 Test Item Value Reference Range Interpretation Comments DHEA SULFATE (test code = 4225) 77 UG/DL MARKO (ANTI-NUCLEAR AB) WITH REFLEX [id number] 00:00:00 Test Item Value Reference Range Interpretation Comments ANTI-NUCLEAR ANTIBODIES (test code = NEGATIVE 3506) MARKO (ANTI-NUCLEAR AB) WITH REFLEX [id number] 00:00:00 Test Item Value Reference Range Interpretation Comments ANTI-NUCLEAR ANTIBODIES (test code = NEGATIVE 3506) DHEA [id number] 00:00:00 Test Item Value Reference Range Interpretation Comments DHEA SULFATE (test code = 4225) 77 UG/DL DHEA [id number] 00:00:00 Test Item Value Reference Range Interpretation Comments DHEA SULFATE (test code = 4225) 77 UG/DL MARKO (ANTI-NUCLEAR AB) WITH REFLEX [id number] 00:00:00 Test Item Value Reference Range Interpretation Comments ANTI-NUCLEAR ANTIBODIES (test code = NEGATIVE 3506) MARKO (ANTI-NUCLEAR AB) WITH REFLEX [id number] 00:00:00 Test Item Value Reference Range Interpretation Comments ANTI-NUCLEAR ANTIBODIES (test code = NEGATIVE 3506) DHEA [id number] 00:00:00 Test Item Value Reference Range Interpretation Comments DHEA SULFATE (test code = 4225) 77 UG/DL DHEA [id number] 00:00:00 Test Item Value Reference Range Interpretation Comments DHEA SULFATE (test code = 4225) 77 UG/DL MARKO (ANTI-NUCLEAR AB) WITH REFLEX [id number] 00:00:00 Test Item Value Reference Range Interpretation Comments ANTI-NUCLEAR ANTIBODIES (test code = NEGATIVE 3506) MARKO (ANTI-NUCLEAR AB) WITH REFLEX [id number] 00:00:00 Test Item Value Reference Range Interpretation Comments ANTI-NUCLEAR ANTIBODIES (test code = NEGATIVE 3506) DHEA [id number] 00:00:00 Test Item Value Reference Range Interpretation Comments DHEA SULFATE (test code = 4225) 77 UG/DL DHEA [id number] 00:00:00 Test Item Value Reference Range Interpretation Comments DHEA SULFATE (test code = 4225) 77 UG/DL MARKO (ANTI-NUCLEAR AB) WITH REFLEX [id number] 00:00:00 Test Item Value Reference Range Interpretation Comments ANTI-NUCLEAR ANTIBODIES (test code = NEGATIVE 3506) MARKO (ANTI-NUCLEAR AB) WITH REFLEX [id number] 00:00:00 Test Item Value Reference Range Interpretation Comments ANTI-NUCLEAR ANTIBODIES (test code = NEGATIVE 3506) DHEA [id number] 00:00:00 Test Item Value Reference Range Interpretation Comments DHEA SULFATE (test code = 4225) 77 UG/DL DHEA [id number] 00:00:00 Test Item Value Reference Range Interpretation Comments DHEA SULFATE (test code = 4225) 77 UG/DL MARKO (ANTI-NUCLEAR AB) WITH REFLEX [id number] 00:00:00 Test Item Value Reference Range Interpretation Comments ANTI-NUCLEAR ANTIBODIES (test code = NEGATIVE 3506) MARKO (ANTI-NUCLEAR AB) WITH REFLEX [id number] 00:00:00 Test Item Value Reference Range Interpretation Comments ANTI-NUCLEAR ANTIBODIES (test code = NEGATIVE 3506) MARKO (ANTI-NUCLEAR AB) WITH REFLEX [id number] 00:00:00 Test Item Value Reference Range Interpretation Comments ANTI-NUCLEAR ANTIBODIES (test code = NEGATIVE 3506) DHEA [id number] 00:00:00 Test Item Value Reference Range Interpretation Comments DHEA SULFATE (test code = 4225) 77 UG/DL DHEA [id number] 00:00:00 Test Item Value Reference Range Interpretation Comments DHEA SULFATE (test code = 4225) 77 UG/DL DHEA [id number] 00:00:00 Test Item Value Reference Range Interpretation Comments DHEA SULFATE (test code = 4225) 77 UG/DL MARKO (ANTI-NUCLEAR AB) WITH REFLEX [id number] 00:00:00 Test Item Value Reference Range Interpretation Comments ANTI-NUCLEAR ANTIBODIES (test code = NEGATIVE 3506) MARKO (ANTI-NUCLEAR AB) WITH REFLEX [id number] 00:00:00 Test Item Value Reference Range Interpretation Comments ANTI-NUCLEAR ANTIBODIES (test code = NEGATIVE 3506) DHEA [id number] 00:00:00 Test Item Value Reference Range Interpretation Comments DHEA SULFATE (test code = 4225) 77 UG/DL DHEA [id number] 00:00:00 Test Item Value Reference Range Interpretation Comments DHEA SULFATE (test code = 4225) 77 UG/DL MARKO (ANTI-NUCLEAR AB) WITH REFLEX [id number] 00:00:00 Test Item Value Reference Range Interpretation Comments ANTI-NUCLEAR ANTIBODIES (test code = NEGATIVE 3506) MARKO (ANTI-NUCLEAR AB) WITH REFLEX [id number] 00:00:00 Test Item Value Reference Range Interpretation Comments ANTI-NUCLEAR ANTIBODIES (test code = NEGATIVE 3506) DHEA [id number] 00:00:00 Test Item Value Reference Range Interpretation Comments DHEA SULFATE (test code = 4225) 77 UG/DL DHEA [id number] 00:00:00 Test Item Value Reference Range Interpretation Comments DHEA SULFATE (test code = 4225) 77 UG/DL VITAMIN D,1,28-[id number] 00:00:00 Test Item Value Reference Range Interpretation Comments VITAMIN D,1,25-DIHYDROXY (test 11.3 PG/ML code = 4960) VITAMIN D,1,44-[id number] 00:00:00 Test Item Value Reference Range Interpretation Comments VITAMIN D,1,25-DIHYDROXY (test 11.3 PG/ML code = 4960) VITAMIN B 12 AND FOLIC [id number] 00:00:00 Test Item Value Reference Range Interpretation Comments VITAMIN B-12 (test code = 2840) 925 PG/ML FOLIC ACID (test code = 2695) >24.0 NG/ML VITAMIN B 12 AND FOLIC [id number] 00:00:00 Test Item Value Reference Range Interpretation [...] (test code = 2821) 0.4 UIU/ML LIPID [id number] 00:00:00 Test Item Value Reference Range Interpretation Comments CHOLESTEROL (test code = 2210) 172 MG/DL TRIGLYCERIDES (test code = 2232) 136 MG/DL HDL CHOLESTEROL (test code = 2220) 44 MG/DL CALC LDL CHOL (test code = 2237) 101 MG/DL RISK RATIO LDL/HDL (test code = 2.29 RATIO 2238) LIPID [id number] 00:00:00 Test Item Value Reference Range Interpretation Comments CHOLESTEROL (test code = 2210) 172 MG/DL TRIGLYCERIDES (test code = 2232) 136 MG/DL HDL CHOLESTEROL (test code = 2220) 44 MG/DL CALC LDL CHOL (test code = 2237) 101 MG/DL RISK RATIO LDL/HDL (test code = 2.29 RATIO 2238) [id number] 00:00:00 Test Item Value Reference Range Interpretation Comments TESTOSTERONE (test code = 2830) <12 NG/DL TESTOSTERONE REF RANGE (test code = (NOTE) 31196) [id number] 00:00:00 Test Item Value Reference Range Interpretation Comments TESTOSTERONE (test code = 2830) <12 NG/DL TESTOSTERONE REF RANGE (test code = (NOTE) 85376) [id number] 00:00:00 Test Item Value Reference Range Interpretation Comments PROLACTIN (test code = 2800) 5.8 NG/ML [id number] 00:00:00 Test Item Value Reference Range Interpretation Comments PROLACTIN (test code = 2800) 5.8 NG/ML FSH + LH [id number] 00:00:00 Test Item Value Reference Range Interpretation Comments FOLLICLE STIM HORMONE (test code = 8.9 MIU/ML 2700) LUTEINIZING HORMONE (test code = 6.5 MIU/ML 2776) FSH + LH [id number] 00:00:00 Test Item Value Reference Range Interpretation Comments FOLLICLE STIM HORMONE (test code = 8.9 MIU/ML 2700) LUTEINIZING HORMONE (test code = 6.5 MIU/ML 2776) VITAMIN D,1,96-[id number] 00:00:00 Test Item Value Reference Range Interpretation Comments VITAMIN D,1,25-DIHYDROXY (test 11.3 PG/ML code = 4960) VITAMIN D,1,28-[id number] 00:00:00 Test Item Value Reference Range Interpretation Comments VITAMIN D,1,25-DIHYDROXY (test 11.3 PG/ML code = 4960) VITAMIN B 12 AND FOLIC [id number] 00:00:00 Test Item Value Reference Range Interpretation Comments VITAMIN B-12 (test code = 2840) 925 PG/ML FOLIC ACID (test code = 2695) >24.0 NG/ML VITAMIN B 12 AND FOLIC [id number] 00:00:00 Test Item Value Reference Range Interpretation [...] (test code = 2821) 0.4 UIU/ML LIPID [id number] 00:00:00 Test Item Value Reference Range Interpretation Comments CHOLESTEROL (test code = 2210) 172 MG/DL TRIGLYCERIDES (test code = 2232) 136 MG/DL HDL CHOLESTEROL (test code = 2220) 44 MG/DL CALC LDL CHOL (test code = 2237) 101 MG/DL RISK RATIO LDL/HDL (test code = 2.29 RATIO 2238) LIPID [id number] 00:00:00 Test Item Value Reference Range Interpretation Comments CHOLESTEROL (test code = 2210) 172 MG/DL TRIGLYCERIDES (test code = 2232) 136 MG/DL HDL CHOLESTEROL (test code = 2220) 44 MG/DL CALC LDL CHOL (test code = 2237) 101 MG/DL RISK RATIO LDL/HDL (test code = 2.29 RATIO 2238) [id number] 00:00:00 Test Item Value Reference Range Interpretation Comments TESTOSTERONE (test code = 2830) <12 NG/DL TESTOSTERONE REF RANGE (test code = (NOTE) 21806) [id number] 00:00:00 Test Item Value Reference Range Interpretation Comments TESTOSTERONE (test code = 2830) <12 NG/DL TESTOSTERONE REF RANGE (test code = (NOTE) 49332) [id number] 00:00:00 Test Item Value Reference Range Interpretation Comments PROLACTIN (test code = 2800) 5.8 NG/ML [id number] 00:00:00 Test Item Value Reference Range Interpretation Comments PROLACTIN (test code = 2800) 5.8 NG/ML FSH + LH [id number] 00:00:00 Test Item Value Reference Range Interpretation Comments FOLLICLE STIM HORMONE (test code = 8.9 MIU/ML 2700) LUTEINIZING HORMONE (test code = 6.5 MIU/ML 2776) FSH + LH [id number] 00:00:00 Test Item Value Reference Range Interpretation Comments FOLLICLE STIM HORMONE (test code = 8.9 MIU/ML 2700) LUTEINIZING HORMONE (test code = 6.5 MIU/ML 2776) VITAMIN D,1,94-[id number] 00:00:00 Test Item Value Reference Range Interpretation Comments VITAMIN D,1,25-DIHYDROXY (test 11.3 PG/ML code = 4960) VITAMIN D,1,68-[id number] 00:00:00 Test Item Value Reference Range Interpretation Comments VITAMIN D,1,25-DIHYDROXY (test 11.3 PG/ML code = 4960) VITAMIN B 12 AND FOLIC [id number] 00:00:00 Test Item Value Reference Range Interpretation Comments VITAMIN B-12 (test code = 2840) 925 PG/ML FOLIC ACID (test code = 2695) >24.0 NG/ML VITAMIN B 12 AND FOLIC [id number] 00:00:00 Test Item Value Reference Range Interpretation [...] (test code = 2821) 0.4 UIU/ML LIPID [id number] 00:00:00 Test Item Value Reference Range Interpretation Comments CHOLESTEROL (test code = 2210) 172 MG/DL TRIGLYCERIDES (test code = 2232) 136 MG/DL HDL CHOLESTEROL (test code = 2220) 44 MG/DL CALC LDL CHOL (test code = 2237) 101 MG/DL RISK RATIO LDL/HDL (test code = 2.29 RATIO 2238) LIPID [id number] 00:00:00 Test Item Value Reference Range Interpretation Comments CHOLESTEROL (test code = 2210) 172 MG/DL TRIGLYCERIDES (test code = 2232) 136 MG/DL HDL CHOLESTEROL (test code = 2220) 44 MG/DL CALC LDL CHOL (test code = 2237) 101 MG/DL RISK RATIO LDL/HDL (test code = 2.29 RATIO 2238) [id number] 00:00:00 Test Item Value Reference Range Interpretation Comments TESTOSTERONE (test code = 2830) <12 NG/DL TESTOSTERONE REF RANGE (test code = (NOTE) 19658) [id number] 00:00:00 Test Item Value Reference Range Interpretation Comments TESTOSTERONE (test code = 2830) <12 NG/DL TESTOSTERONE REF RANGE (test code = (NOTE) 91215) [id number] 00:00:00 Test Item Value Reference Range Interpretation Comments PROLACTIN (test code = 2800) 5.8 NG/ML [id number] 00:00:00 Test Item Value Reference Range Interpretation Comments PROLACTIN (test code = 2800) 5.8 NG/ML FSH + LH [id number] 00:00:00 Test Item Value Reference Range Interpretation Comments FOLLICLE STIM HORMONE (test code = 8.9 MIU/ML 2700) LUTEINIZING HORMONE (test code = 6.5 MIU/ML 2776) FSH + LH [id number] 00:00:00 Test Item Value Reference Range Interpretation Comments FOLLICLE STIM HORMONE (test code = 8.9 MIU/ML 2700) LUTEINIZING HORMONE (test code = 6.5 MIU/ML 2776) VITAMIN D,1,37-[id number] 00:00:00 Test Item Value Reference Range Interpretation Comments VITAMIN D,1,25-DIHYDROXY (test 11.3 PG/ML code = 4960) VITAMIN D,1,66-[id number] 00:00:00 Test Item Value Reference Range Interpretation Comments VITAMIN D,1,25-DIHYDROXY (test 11.3 PG/ML code = 4960) VITAMIN B 12 AND FOLIC [id number] 00:00:00 Test Item Value Reference Range Interpretation Comments VITAMIN B-12 (test code = 2840) 925 PG/ML FOLIC ACID (test code = 2695) >24.0 NG/ML VITAMIN B 12 AND FOLIC [id number] 00:00:00 Test Item Value Reference Range Interpretation [...] (test code = 2821) 0.4 UIU/ML LIPID [id number] 00:00:00 Test Item Value Reference Range Interpretation Comments CHOLESTEROL (test code = 2210) 172 MG/DL TRIGLYCERIDES (test code = 2232) 136 MG/DL HDL CHOLESTEROL (test code = 2220) 44 MG/DL CALC LDL CHOL (test code = 2237) 101 MG/DL RISK RATIO LDL/HDL (test code = 2.29 RATIO 2238) LIPID [id number] 00:00:00 Test Item Value Reference Range Interpretation Comments CHOLESTEROL (test code = 2210) 172 MG/DL TRIGLYCERIDES (test code = 2232) 136 MG/DL HDL CHOLESTEROL (test code = 2220) 44 MG/DL CALC LDL CHOL (test code = 2237) 101 MG/DL RISK RATIO LDL/HDL (test code = 2.29 RATIO 2238) [id number] 00:00:00 Test Item Value Reference Range Interpretation Comments TESTOSTERONE (test code = 2830) <12 NG/DL TESTOSTERONE REF RANGE (test code = (NOTE) 49035) [id number] 00:00:00 Test Item Value Reference Range Interpretation Comments TESTOSTERONE (test code = 2830) <12 NG/DL TESTOSTERONE REF RANGE (test code = (NOTE) 15982) [id number] 00:00:00 Test Item Value Reference Range Interpretation Comments PROLACTIN (test code = 2800) 5.8 NG/ML [id number] 00:00:00 Test Item Value Reference Range Interpretation Comments PROLACTIN (test code = 2800) 5.8 NG/ML FSH + LH [id number] 00:00:00 Test Item Value Reference Range Interpretation Comments FOLLICLE STIM HORMONE (test code = 8.9 MIU/ML 2700) LUTEINIZING HORMONE (test code = 6.5 MIU/ML 2776) FSH + LH [id number] 00:00:00 Test Item Value Reference Range Interpretation Comments FOLLICLE STIM HORMONE (test code = 8.9 MIU/ML 2700) LUTEINIZING HORMONE (test code = 6.5 MIU/ML 2776) VITAMIN D,1,23-[id number] 00:00:00 Test Item Value Reference Range Interpretation Comments VITAMIN D,1,25-DIHYDROXY (test 11.3 PG/ML code = 4960) VITAMIN D,1,84-[id number] 00:00:00 Test Item Value Reference Range Interpretation Comments VITAMIN D,1,25-DIHYDROXY (test 11.3 PG/ML code = 4960) VITAMIN B 12 AND FOLIC [id number] 00:00:00 Test Item Value Reference Range Interpretation Comments VITAMIN B-12 (test code = 2840) 925 PG/ML FOLIC ACID (test code = 2695) >24.0 NG/ML VITAMIN B 12 AND FOLIC [id number] 00:00:00 Test Item Value Reference Range Interpretation [...] (test code = 2821) 0.4 UIU/ML LIPID [id number] 00:00:00 Test Item Value Reference Range Interpretation Comments CHOLESTEROL (test code = 2210) 172 MG/DL TRIGLYCERIDES (test code = 2232) 136 MG/DL HDL CHOLESTEROL (test code = 2220) 44 MG/DL CALC LDL CHOL (test code = 2237) 101 MG/DL RISK RATIO LDL/HDL (test code = 2.29 RATIO 2238) LIPID [id number] 00:00:00 Test Item Value Reference Range Interpretation Comments CHOLESTEROL (test code = 2210) 172 MG/DL TRIGLYCERIDES (test code = 2232) 136 MG/DL HDL CHOLESTEROL (test code = 2220) 44 MG/DL CALC LDL CHOL (test code = 2237) 101 MG/DL RISK RATIO LDL/HDL (test code = 2.29 RATIO 2238) [id number] 00:00:00 Test Item Value Reference Range Interpretation Comments TESTOSTERONE (test code = 2830) <12 NG/DL TESTOSTERONE REF RANGE (test code = (NOTE) 57576) [id number] 00:00:00 Test Item Value Reference Range Interpretation Comments TESTOSTERONE (test code = 2830) <12 NG/DL TESTOSTERONE REF RANGE (test code = (NOTE) 96640) [id number] 00:00:00 Test Item Value Reference Range Interpretation Comments PROLACTIN (test code = 2800) 5.8 NG/ML [id number] 00:00:00 Test Item Value Reference Range Interpretation Comments PROLACTIN (test code = 2800) 5.8 NG/ML FSH + LH [id number] 00:00:00 Test Item Value Reference Range Interpretation Comments FOLLICLE STIM HORMONE (test code = 8.9 MIU/ML 2700) LUTEINIZING HORMONE (test code = 6.5 MIU/ML 2776) FSH + LH [id number] 00:00:00 Test Item Value Reference Range Interpretation Comments FOLLICLE STIM HORMONE (test code = 8.9 MIU/ML 2700) LUTEINIZING HORMONE (test code = 6.5 MIU/ML 2776) VITAMIN D,1,19-[id number] 00:00:00 Test Item Value Reference Range Interpretation Comments VITAMIN D,1,25-DIHYDROXY (test 11.3 PG/ML code = 4960) VITAMIN D,1,13-[id number] 00:00:00 Test Item Value Reference Range Interpretation Comments VITAMIN D,1,25-DIHYDROXY (test 11.3 PG/ML code = 4960) VITAMIN B 12 AND FOLIC [id number] 00:00:00 Test Item Value Reference Range Interpretation Comments VITAMIN B-12 (test code = 2840) 925 PG/ML FOLIC ACID (test code = 2695) >24.0 NG/ML VITAMIN B 12 AND FOLIC [id number] 00:00:00 Test Item Value Reference Range Interpretation [...] (test code = 2821) 0.4 UIU/ML LIPID [id number] 00:00:00 Test Item Value Reference Range Interpretation Comments CHOLESTEROL (test code = 2210) 172 MG/DL TRIGLYCERIDES (test code = 2232) 136 MG/DL HDL CHOLESTEROL (test code = 2220) 44 MG/DL CALC LDL CHOL (test code = 2237) 101 MG/DL RISK RATIO LDL/HDL (test code = 2.29 RATIO 2238) LIPID [id number] 00:00:00 Test Item Value Reference Range Interpretation Comments CHOLESTEROL (test code = 2210) 172 MG/DL TRIGLYCERIDES (test code = 2232) 136 MG/DL HDL CHOLESTEROL (test code = 2220) 44 MG/DL CALC LDL CHOL (test code = 2237) 101 MG/DL RISK RATIO LDL/HDL (test code = 2.29 RATIO 2238) [id number] 00:00:00 Test Item Value Reference Range Interpretation Comments TESTOSTERONE (test code = 2830) <12 NG/DL TESTOSTERONE REF RANGE (test code = (NOTE) 25385) [id number] 00:00:00 Test Item Value Reference Range Interpretation Comments TESTOSTERONE (test code = 2830) <12 NG/DL TESTOSTERONE REF RANGE (test code = (NOTE) 55818) [id number] 00:00:00 Test Item Value Reference Range Interpretation Comments PROLACTIN (test code = 2800) 5.8 NG/ML [id number] 00:00:00 Test Item Value Reference Range Interpretation Comments PROLACTIN (test code = 2800) 5.8 NG/ML FSH + LH [id number] 00:00:00 Test Item Value Reference Range Interpretation Comments FOLLICLE STIM HORMONE (test code = 8.9 MIU/ML 2700) LUTEINIZING HORMONE (test code = 6.5 MIU/ML 2776) FSH + LH [id number] 00:00:00 Test Item Value Reference Range Interpretation Comments FOLLICLE STIM HORMONE (test code = 8.9 MIU/ML 2700) LUTEINIZING HORMONE (test code = 6.5 MIU/ML 2776) VITAMIN D,1,64-[id number] 00:00:00 Test Item Value Reference Range Interpretation Comments VITAMIN D,1,25-DIHYDROXY (test 11.3 PG/ML code = 4960) VITAMIN D,1,35-[id number] 00:00:00 Test Item Value Reference Range Interpretation Comments VITAMIN D,1,25-DIHYDROXY (test 11.3 PG/ML code = 4960) VITAMIN B 12 AND FOLIC [id number] 00:00:00 Test Item Value Reference Range Interpretation Comments VITAMIN B-12 (test code = 2840) 925 PG/ML FOLIC ACID (test code = 2695) >24.0 NG/ML VITAMIN B 12 AND FOLIC [id number] 00:00:00 Test Item Value Reference Range Interpretation [...] (test code = 2821) 0.4 UIU/ML LIPID [id number] 00:00:00 Test Item Value Reference Range Interpretation Comments CHOLESTEROL (test code = 2210) 172 MG/DL TRIGLYCERIDES (test code = 2232) 136 MG/DL HDL CHOLESTEROL (test code = 2220) 44 MG/DL CALC LDL CHOL (test code = 2237) 101 MG/DL RISK RATIO LDL/HDL (test code = 2.29 RATIO 2238) LIPID [id number] 00:00:00 Test Item Value Reference Range Interpretation Comments CHOLESTEROL (test code = 2210) 172 MG/DL TRIGLYCERIDES (test code = 2232) 136 MG/DL HDL CHOLESTEROL (test code = 2220) 44 MG/DL CALC LDL CHOL (test code = 2237) 101 MG/DL RISK RATIO LDL/HDL (test code = 2.29 RATIO 2238) [id number] 00:00:00 Test Item Value Reference Range Interpretation Comments TESTOSTERONE (test code = 2830) <12 NG/DL TESTOSTERONE REF RANGE (test code = (NOTE) 82184) [id number] 00:00:00 Test Item Value Reference Range Interpretation Comments TESTOSTERONE (test code = 2830) <12 NG/DL TESTOSTERONE REF RANGE (test code = (NOTE) 40502) [id number] 00:00:00 Test Item Value Reference Range Interpretation Comments PROLACTIN (test code = 2800) 5.8 NG/ML [id number] 00:00:00 Test Item Value Reference Range Interpretation Comments PROLACTIN (test code = 2800) 5.8 NG/ML FSH + LH [id number] 00:00:00 Test Item Value Reference Range Interpretation Comments FOLLICLE STIM HORMONE (test code = 8.9 MIU/ML 2700) LUTEINIZING HORMONE (test code = 6.5 MIU/ML 2776) FSH + LH [id number] 00:00:00 Test Item Value Reference Range Interpretation Comments FOLLICLE STIM HORMONE (test code = 8.9 MIU/ML 2700) LUTEINIZING HORMONE (test code = 6.5 MIU/ML 2776) VITAMIN D,1,96-[id number] 00:00:00 Test Item Value Reference Range Interpretation Comments VITAMIN D,1,25-DIHYDROXY (test 11.3 PG/ML code = 4960) VITAMIN B 12 AND FOLIC [id number] 00:00:00 Test Item Value Reference Range Interpretation [...] (test code = 2821) 0.4 UIU/ML VITAMIN D,1,80-[id number] 00:00:00 Test Item Value Reference Range Interpretation Comments VITAMIN D,1,25-DIHYDROXY (test 11.3 PG/ML code = 4960) VITAMIN D,1,62-[id number] 00:00:00 Test Item Value Reference Range Interpretation Comments VITAMIN D,1,25-DIHYDROXY (test 11.3 PG/ML code = 4960) VITAMIN B 12 AND FOLIC [id number] 00:00:00 Test Item Value Reference Range Interpretation Comments VITAMIN B-12 (test code = 2840) 925 PG/ML FOLIC ACID (test code = 2695) >24.0 NG/ML VITAMIN B 12 AND FOLIC [id number] 00:00:00 Test Item Value Reference Range Interpretation [...] (test code = 2821) 0.4 UIU/ML LIPID [id number] 00:00:00 Test Item Value Reference Range Interpretation Comments CHOLESTEROL (test code = 2210) 172 MG/DL TRIGLYCERIDES (test code = 2232) 136 MG/DL HDL CHOLESTEROL (test code = 2220) 44 MG/DL CALC LDL CHOL (test code = 2237) 101 MG/DL RISK RATIO LDL/HDL (test code = 2.29 RATIO 2238) LIPID [id number] 00:00:00 Test Item Value Reference Range Interpretation Comments CHOLESTEROL (test code = 2210) 172 MG/DL TRIGLYCERIDES (test code = 2232) 136 MG/DL HDL CHOLESTEROL (test code = 2220) 44 MG/DL CALC LDL CHOL (test code = 2237) 101 MG/DL RISK RATIO LDL/HDL (test code = 2.29 RATIO 2238) [id number] 00:00:00 Test Item Value Reference Range Interpretation Comments TESTOSTERONE (test code = 2830) <12 NG/DL TESTOSTERONE REF RANGE (test code = (NOTE) 73259) [id number] 00:00:00 Test Item Value Reference Range Interpretation Comments TESTOSTERONE (test code = 2830) <12 NG/DL TESTOSTERONE REF RANGE (test code = (NOTE) 45793) [id number] 00:00:00 Test Item Value Reference Range Interpretation Comments PROLACTIN (test code = 2800) 5.8 NG/ML [id number] 00:00:00 Test Item Value Reference Range Interpretation Comments PROLACTIN (test code = 2800) 5.8 NG/ML FSH + LH [id number] 00:00:00 Test Item Value Reference Range Interpretation Comments FOLLICLE STIM HORMONE (test code = 8.9 MIU/ML 2700) LUTEINIZING HORMONE (test code = 6.5 MIU/ML 2776) FSH + LH [id number] 00:00:00 Test Item Value Reference Range Interpretation Comments FOLLICLE STIM HORMONE (test code = 8.9 MIU/ML 2700) LUTEINIZING HORMONE (test code = 6.5 MIU/ML 2776) LIPID [id number] 00:00:00 Test Item Value Reference Range Interpretation Comments CHOLESTEROL (test code = 2210) 172 MG/DL TRIGLYCERIDES (test code = 2232) 136 MG/DL HDL CHOLESTEROL (test code = 2220) 44 MG/DL CALC LDL CHOL (test code = 2237) 101 MG/DL RISK RATIO LDL/HDL (test code = 2.29 RATIO 2238) [id number] 00:00:00 Test Item Value Reference Range Interpretation Comments TESTOSTERONE (test code = 2830) <12 NG/DL TESTOSTERONE REF RANGE (test code = (NOTE) 70548) [id number] 00:00:00 Test Item Value Reference Range Interpretation Comments PROLACTIN (test code = 2800) 5.8 NG/ML FSH + LH [id number] 00:00:00 Test Item Value Reference Range Interpretation Comments FOLLICLE STIM HORMONE (test code = 8.9 MIU/ML 2700) LUTEINIZING HORMONE (test code = 6.5 MIU/ML 2776) VITAMIN D,1,03-[id number] 00:00:00 Test Item Value Reference Range Interpretation Comments VITAMIN D,1,25-DIHYDROXY (test 11.3 PG/ML code = 4960) VITAMIN D,1,76-[id number] 00:00:00 Test Item Value Reference Range Interpretation Comments VITAMIN D,1,25-DIHYDROXY (test 11.3 PG/ML code = 4960) VITAMIN B 12 AND FOLIC [id number] 00:00:00 Test Item Value Reference Range Interpretation Comments VITAMIN B-12 (test code = 2840) 925 PG/ML FOLIC ACID (test code = 2695) >24.0 NG/ML VITAMIN B 12 AND FOLIC [id number] 00:00:00 Test Item Value Reference Range Interpretation Comments VITAMIN B-12 (test code = 2840) 925 PG/ML FOLIC ACID (test code = 2695) >24.0 NG/ML THYROID II PROFILE (T3U, T4, T7, TSH)2016-03-22 00:00:00 Test Item Value Reference Range Interpretation Comments T3 UPTAKE (test code = 2817) 31.0 % T4 (THYROXINE) (test code = 2819) 7.4 UG/DL CALCULATED T7 (FTI) (test code = 2.29 4750) TSH (test code = 2821) 0.4 UIU/ML THYROID II PROFILE (T3U, T4, T7, TSH)2016-03-22 00:00:00 Test Item Value Reference Range Interpretation Comments T3 UPTAKE (test code = 2817) 31.0 % T4 (THYROXINE) (test code = 2819) 7.4 UG/DL CALCULATED T7 (FTI) (test code = 2.29 2820) TSH (test code = 2821) 0.4 UIU/ML LIPID [id number] 00:00:00 Test Item Value Reference Range Interpretation Comments CHOLESTEROL (test code = 2210) 172 MG/DL TRIGLYCERIDES (test code = 2232) 136 MG/DL HDL CHOLESTEROL (test code = 2220) 44 MG/DL CALC LDL CHOL (test code = 2237) 101 MG/DL RISK RATIO LDL/HDL (test code = 2.29 RATIO 2238) LIPID [id number] 00:00:00 Test Item Value Reference Range Interpretation Comments CHOLESTEROL (test code = 2210) 172 MG/DL TRIGLYCERIDES (test code = 2232) 136 MG/DL HDL CHOLESTEROL (test code = 2220) 44 MG/DL CALC LDL CHOL (test code = 2237) 101 MG/DL RISK RATIO LDL/HDL (test code = 2.29 RATIO 2238) [id number] 00:00:00 Test Item Value Reference Range Interpretation Comments TESTOSTERONE (test code = 2830) <12 NG/DL TESTOSTERONE REF RANGE (test code = (NOTE) 12642) [id number] 00:00:00 Test Item Value Reference Range Interpretation Comments TESTOSTERONE (test code = 2830) <12 NG/DL TESTOSTERONE REF RANGE (test code = (NOTE) 43189) [id number] 00:00:00 Test Item Value Reference Range Interpretation Comments PROLACTIN (test code = 2800) 5.8 NG/ML [id number] 00:00:00 Test Item Value Reference Range Interpretation Comments PROLACTIN (test code = 2800) 5.8 NG/ML FSH + LH [id number] 00:00:00 Test Item Value Reference Range Interpretation Comments FOLLICLE STIM HORMONE (test code = 8.9 MIU/ML 2700) LUTEINIZING HORMONE (test code = 6.5 MIU/ML 2776) FSH + LH [id number] 00:00:00 Test Item Value Reference Range Interpretation Comments FOLLICLE STIM HORMONE (test code = 8.9 MIU/ML 2700) LUTEINIZING HORMONE (test code = 6.5 MIU/ML 2776) VITAMIN D,1,33-[id number] 00:00:00 Test Item Value Reference Range Interpretation Comments VITAMIN D,1,25-DIHYDROXY (test 11.3 PG/ML code = 4960) VITAMIN D,1,39-[id number] 00:00:00 Test Item Value Reference Range Interpretation Comments VITAMIN D,1,25-DIHYDROXY (test 11.3 PG/ML code = 4960) VITAMIN B 12 AND FOLIC [id number] 00:00:00 Test Item Value Reference Range Interpretation Comments VITAMIN B-12 (test code = 2840) 925 PG/ML FOLIC ACID (test code = 2695) >24.0 NG/ML VITAMIN B 12 AND FOLIC [id number] 00:00:00 Test Item Value Reference Range Interpretation [...] (test code = 2821) 0.4 UIU/ML LIPID [id number] 00:00:00 Test Item Value Reference Range Interpretation Comments CHOLESTEROL (test code = 2210) 172 MG/DL TRIGLYCERIDES (test code = 2232) 136 MG/DL HDL CHOLESTEROL (test code = 2220) 44 MG/DL CALC LDL CHOL (test code = 2237) 101 MG/DL RISK RATIO LDL/HDL (test code = 2.29 RATIO 2238) LIPID [id number] 00:00:00 Test Item Value Reference Range Interpretation Comments CHOLESTEROL (test code = 2210) 172 MG/DL TRIGLYCERIDES (test code = 2232) 136 MG/DL HDL CHOLESTEROL (test code = 2220) 44 MG/DL CALC LDL CHOL (test code = 2237) 101 MG/DL RISK RATIO LDL/HDL (test code = 2.29 RATIO 2238) [id number] 00:00:00 Test Item Value Reference Range Interpretation Comments TESTOSTERONE (test code = 2830) <12 NG/DL TESTOSTERONE REF RANGE (test code = (NOTE) 71493) [id number] 00:00:00 Test Item Value Reference Range Interpretation Comments TESTOSTERONE (test code = 2830) <12 NG/DL TESTOSTERONE REF RANGE (test code = (NOTE) 50211) [id number] 00:00:00 Test Item Value Reference Range Interpretation Comments PROLACTIN (test code = 2800) 5.8 NG/ML [id number] 00:00:00 Test Item Value Reference Range Interpretation Comments PROLACTIN (test code = 2800) 5.8 NG/ML FSH + LH [id number] 00:00:00 Test Item Value Reference Range Interpretation Comments FOLLICLE STIM HORMONE (test code = 8.9 MIU/ML 2700) LUTEINIZING HORMONE (test code = 6.5 MIU/ML 2776) FSH + LH [id number] 00:00:00 Test Item Value Reference Range Interpretation Comments FOLLICLE STIM HORMONE (test code = 8.9 MIU/ML 2700) LUTEINIZING HORMONE (test code = 6.5 MIU/ML 2776) SEDIMENTATION [id number] 00:00:00 Test Item Value Reference Range Interpretation Comments SEDIMENTATION RATE (test code = 35 MM/HOUR 1017) SEDIMENTATION [id number] 00:00:00 Test Item Value Reference Range Interpretation Comments SEDIMENTATION RATE (test code = 35 MM/HOUR 1017) CBC W/AUTO [id number] 00:00:00 Test Item Value Reference Range Interpretation [...] code = 1015) 246 K/UL CBC W/AUTO [id number] 00:00:00 Test Item Value Reference Range Interpretation [...] code = 1015) 246 K/UL CBC W/AUTO [id number] 00:00:00 Test Item Value Reference Range Interpretation [...] (test code = 1015) 246 K/UL HEMOGLOBIN [id number] 00:00:00 Test Item Value Reference Range Interpretation Comments HEMOGLOBIN A1c (test code = 76584) 6.2 % HEMOGLOBIN [id number] 00:00:00 Test Item Value Reference Range Interpretation Comments HEMOGLOBIN A1c (test code = 80029) 6.2 % HEMOGLOBIN [id number] 00:00:00 Test Item Value Reference Range Interpretation Comments HEMOGLOBIN A1c (test code = 52394) 6.2 % SEDIMENTATION [id number] 00:00:00 Test Item Value Reference Range Interpretation Comments SEDIMENTATION RATE (test code = 35 MM/HOUR 1017) SEDIMENTATION [id number] 00:00:00 Test Item Value Reference Range Interpretation Comments SEDIMENTATION RATE (test code = 35 MM/HOUR 1017) CBC W/AUTO [id number] 00:00:00 Test Item Value Reference Range Interpretation [...] code = 1015) 246 K/UL CBC W/AUTO [id number] 00:00:00 Test Item Value Reference Range Interpretation [...] code = 1015) 246 K/UL CBC W/AUTO [id number] 00:00:00 Test Item Value Reference Range Interpretation [...] (test code = 1015) 246 K/UL HEMOGLOBIN [id number] 00:00:00 Test Item Value Reference Range Interpretation Comments HEMOGLOBIN A1c (test code = 68631) 6.2 % HEMOGLOBIN [id number] 00:00:00 Test Item Value Reference Range Interpretation Comments HEMOGLOBIN A1c (test code = 99423) 6.2 % HEMOGLOBIN [id number] 00:00:00 Test Item Value Reference Range Interpretation Comments HEMOGLOBIN A1c (test code = 37321) 6.2 % SEDIMENTATION [id number] 00:00:00 Test Item Value Reference Range Interpretation Comments SEDIMENTATION RATE (test code = 35 MM/HOUR 1017) SEDIMENTATION [id number] 00:00:00 Test Item Value Reference Range Interpretation Comments SEDIMENTATION RATE (test code = 35 MM/HOUR 1017) CBC W/AUTO [id number] 00:00:00 Test Item Value Reference Range Interpretation [...] code = 1015) 246 K/UL CBC W/AUTO [id number] 00:00:00 Test Item Value Reference Range Interpretation [...] code = 1015) 246 K/UL CBC W/AUTO [id number] 00:00:00 Test Item Value Reference Range Interpretation [...] (test code = 1015) 246 K/UL HEMOGLOBIN [id number] 00:00:00 Test Item Value Reference Range Interpretation Comments HEMOGLOBIN A1c (test code = 15273) 6.2 % HEMOGLOBIN [id number] 00:00:00 Test Item Value Reference Range Interpretation Comments HEMOGLOBIN A1c (test code = 79810) 6.2 % HEMOGLOBIN [id number] 00:00:00 Test Item Value Reference Range Interpretation Comments HEMOGLOBIN A1c (test code = 33716) 6.2 % SEDIMENTATION [id number] 00:00:00 Test Item Value Reference Range Interpretation Comments SEDIMENTATION RATE (test code = 35 MM/HOUR 1017) SEDIMENTATION [id number] 00:00:00 Test Item Value Reference Range Interpretation Comments SEDIMENTATION RATE (test code = 35 MM/HOUR 1017) CBC W/AUTO [id number] 00:00:00 Test Item Value Reference Range Interpretation [...] code = 1015) 246 K/UL CBC W/AUTO [id number] 00:00:00 Test Item Value Reference Range Interpretation [...] code = 1015) 246 K/UL CBC W/AUTO [id number] 00:00:00 Test Item Value Reference Range Interpretation [...] (test code = 1015) 246 K/UL HEMOGLOBIN [id number] 00:00:00 Test Item Value Reference Range Interpretation Comments HEMOGLOBIN A1c (test code = 73882) 6.2 % HEMOGLOBIN [id number] 00:00:00 Test Item Value Reference Range Interpretation Comments HEMOGLOBIN A1c (test code = 43006) 6.2 % HEMOGLOBIN [id number] 00:00:00 Test Item Value Reference Range Interpretation Comments HEMOGLOBIN A1c (test code = 29219) 6.2 % SEDIMENTATION [id number] 00:00:00 Test Item Value Reference Range Interpretation Comments SEDIMENTATION RATE (test code = 35 MM/HOUR 1017) SEDIMENTATION [id number] 00:00:00 Test Item Value Reference Range Interpretation Comments SEDIMENTATION RATE (test code = 35 MM/HOUR 1017) CBC W/AUTO [id number] 00:00:00 Test Item Value Reference Range Interpretation [...] code = 1015) 246 K/UL CBC W/AUTO [id number] 00:00:00 Test Item Value Reference Range Interpretation [...] code = 1015) 246 K/UL CBC W/AUTO [id number] 00:00:00 Test Item Value Reference Range Interpretation [...] (test code = 1015) 246 K/UL HEMOGLOBIN [id number] 00:00:00 Test Item Value Reference Range Interpretation Comments HEMOGLOBIN A1c (test code = 84642) 6.2 % HEMOGLOBIN [id number] 00:00:00 Test Item Value Reference Range Interpretation Comments HEMOGLOBIN A1c (test code = 36592) 6.2 % HEMOGLOBIN [id number] 00:00:00 Test Item Value Reference Range Interpretation Comments HEMOGLOBIN A1c (test code = 66736) 6.2 % SEDIMENTATION [id number] 00:00:00 Test Item Value Reference Range Interpretation Comments SEDIMENTATION RATE (test code = 35 MM/HOUR 1017) SEDIMENTATION [id number] 00:00:00 Test Item Value Reference Range Interpretation Comments SEDIMENTATION RATE (test code = 35 MM/HOUR 1017) CBC W/AUTO [id number] 00:00:00 Test Item Value Reference Range Interpretation [...] code = 1015) 246 K/UL CBC W/AUTO [id number] 00:00:00 Test Item Value Reference Range Interpretation [...] code = 1015) 246 K/UL CBC W/AUTO [id number] 00:00:00 Test Item Value Reference Range Interpretation [...] (test code = 1015) 246 K/UL HEMOGLOBIN [id number] 00:00:00 Test Item Value Reference Range Interpretation Comments HEMOGLOBIN A1c (test code = 30379) 6.2 % HEMOGLOBIN [id number] 00:00:00 Test Item Value Reference Range Interpretation Comments HEMOGLOBIN A1c (test code = 34658) 6.2 % HEMOGLOBIN [id number] 00:00:00 Test Item Value Reference Range Interpretation Comments HEMOGLOBIN A1c (test code = 34402) 6.2 % SEDIMENTATION [id number] 00:00:00 Test Item Value Reference Range Interpretation Comments SEDIMENTATION RATE (test code = 35 MM/HOUR 1017) SEDIMENTATION [id number] 00:00:00 Test Item Value Reference Range Interpretation Comments SEDIMENTATION RATE (test code = 35 MM/HOUR 1017) CBC W/AUTO [id number] 00:00:00 Test Item Value Reference Range Interpretation [...] code = 1015) 246 K/UL CBC W/AUTO [id number] 00:00:00 Test Item Value Reference Range Interpretation [...] code = 1015) 246 K/UL CBC W/AUTO [id number] 00:00:00 Test Item Value Reference Range Interpretation [...] (test code = 1015) 246 K/UL HEMOGLOBIN [id number] 00:00:00 Test Item Value Reference Range Interpretation Comments HEMOGLOBIN A1c (test code = 80695) 6.2 % HEMOGLOBIN [id number] 00:00:00 Test Item Value Reference Range Interpretation Comments HEMOGLOBIN A1c (test code = 98643) 6.2 % HEMOGLOBIN [id number] 00:00:00 Test Item Value Reference Range Interpretation Comments HEMOGLOBIN A1c (test code = 14414) 6.2 % SEDIMENTATION [id number] 00:00:00 Test Item Value Reference Range Interpretation Comments SEDIMENTATION RATE (test code = 35 MM/HOUR 1017) SEDIMENTATION [id number] 00:00:00 Test Item Value Reference Range Interpretation Comments SEDIMENTATION RATE (test code = 35 MM/HOUR 1017) SEDIMENTATION [id number] 00:00:00 Test Item Value Reference Range Interpretation Comments SEDIMENTATION RATE (test code = 35 MM/HOUR 1017) CBC W/AUTO [id number] 00:00:00 Test Item Value Reference Range Interpretation [...] code = 1015) 246 K/UL CBC W/AUTO [id number] 00:00:00 Test Item Value Reference Range Interpretation [...] code = 1015) 246 K/UL CBC W/AUTO [id number] 00:00:00 Test Item Value Reference Range Interpretation [...] code = 1015) 246 K/UL CBC W/AUTO [id number] 00:00:00 Test Item Value Reference Range Interpretation [...] (test code = 1015) 246 K/UL HEMOGLOBIN [id number] 00:00:00 Test Item Value Reference Range Interpretation Comments HEMOGLOBIN A1c (test code = 29389) 6.2 % HEMOGLOBIN [id number] 00:00:00 Test Item Value Reference Range Interpretation Comments HEMOGLOBIN A1c (test code = 31706) 6.2 % HEMOGLOBIN [id number] 00:00:00 Test Item Value Reference Range Interpretation Comments HEMOGLOBIN A1c (test code = 34538) 6.2 % CBC W/AUTO [id number] 00:00:00 Test Item Value Reference Range Interpretation [...] (test code = 1015) 246 K/UL HEMOGLOBIN [id number] 00:00:00 Test Item Value Reference Range Interpretation Comments HEMOGLOBIN A1c (test code = 76156) 6.2 % HEMOGLOBIN [id number] 00:00:00 Test Item Value Reference Range Interpretation Comments HEMOGLOBIN A1c (test code = 94744) 6.2 % SEDIMENTATION [id number] 00:00:00 Test Item Value Reference Range Interpretation Comments SEDIMENTATION RATE (test code = 35 MM/HOUR 1017) SEDIMENTATION [id number] 00:00:00 Test Item Value Reference Range Interpretation Comments SEDIMENTATION RATE (test code = 35 MM/HOUR 1017) CBC W/AUTO [id number] 00:00:00 Test Item Value Reference Range Interpretation [...] code = 1015) 246 K/UL CBC W/AUTO [id number] 00:00:00 Test Item Value Reference Range Interpretation [...] code = 1015) 246 K/UL CBC W/AUTO [id number] 00:00:00 Test Item Value Reference Range Interpretation [...] (test code = 1015) 246 K/UL HEMOGLOBIN [id number] 00:00:00 Test Item Value Reference Range Interpretation Comments HEMOGLOBIN A1c (test code = 38548) 6.2 % HEMOGLOBIN [id number] 00:00:00 Test Item Value Reference Range Interpretation Comments HEMOGLOBIN A1c (test code = 34105) 6.2 % HEMOGLOBIN [id number] 00:00:00 Test Item Value Reference Range Interpretation Comments HEMOGLOBIN A1c (test code = 77212) 6.2 % SEDIMENTATION [id number] 00:00:00 Test Item Value Reference Range Interpretation Comments SEDIMENTATION RATE (test code = 35 MM/HOUR 1017) SEDIMENTATION [id number] 00:00:00 Test Item Value Reference Range Interpretation Comments SEDIMENTATION RATE (test code = 35 MM/HOUR 1017) CBC W/AUTO [id number] 00:00:00 Test Item Value Reference Range Interpretation [...] code = 1015) 246 K/UL CBC W/AUTO [id number] 00:00:00 Test Item Value Reference Range Interpretation [...] code = 1015) 246 K/UL CBC W/AUTO [id number] 00:00:00 Test Item Value Reference Range Interpretation [...] (test code = 1015) 246 K/UL HEMOGLOBIN [id number] 00:00:00 Test Item Value Reference Range Interpretation Comments HEMOGLOBIN A1c (test code = 62062) 6.2 % HEMOGLOBIN [id number] 00:00:00 Test Item Value Reference Range Interpretation Comments HEMOGLOBIN A1c (test code = 16436) 6.2 % HEMOGLOBIN [id number] 00:00:00 Test Item Value Reference Range Interpretation Comments HEMOGLOBIN A1c (test code = 75122) 6.2 % COMPREHENSIVE METABOLIC [id number] 00:00:00 Test Item Value Reference Range Interpretation Comments GLUCOSE (test code = 2217) 100 MG/DL BUN (test code = 2208) 10 MG/DL CREATININE (test code = 2214) 0.61 MG/DL eGFR AMER. (test code 134 ML/MIN/1.73 = 04363) eGFR NON- AMER. (test 116 ML/MIN/1.73 code = 14737) CALCULATED BUN/CREAT (test 16 RATIO code = [...] code = 2219) 16 U/L COMPREHENSIVE METABOLIC [id number] 00:00:00 Test Item Value Reference Range Interpretation Comments GLUCOSE (test code = 2217) 100 MG/DL BUN (test code = 2208) 10 MG/DL CREATININE (test code = 2214) 0.61 MG/DL eGFR AMER. (test code 134 ML/MIN/1.73 = 81950) eGFR NON- AMER. (test 116 ML/MIN/1.73 code = 17214) CALCULATED BUN/CREAT (test 16 RATIO code = [...] (test code = 2219) 16 U/L LIPID [id number] 00:00:00 Test Item Value Reference Range Interpretation Comments CHOLESTEROL (test code = 2210) 166 MG/DL TRIGLYCERIDES (test code = 2232) 72 MG/DL HDL CHOLESTEROL (test code = 2220) 47 MG/DL CALCULATED LDL CHOL (test code = 105 MG/DL 2237) RISK RATIO LDL/HDL (test code = 2.23 RATIO 2238) LIPID [id number] 00:00:00 Test Item Value Reference Range Interpretation Comments CHOLESTEROL (test code = 2210) 166 MG/DL TRIGLYCERIDES (test code = 2232) 72 MG/DL HDL CHOLESTEROL (test code = 2220) 47 MG/DL CALCULATED LDL CHOL (test code = 105 MG/DL 7) RISK RATIO LDL/HDL (test code = 2.23 RATIO 2238) [id number] 00:00:00 Test Item Value Reference Range Interpretation Comments TSH (test code = 2821) 1.2 UIU/ML [id number] 00:00:00 Test Item Value Reference Range Interpretation Comments TSH (test code = 2821) 1.2 UIU/ML [id number] 00:00:00 Test Item Value Reference Range Interpretation Comments TSH (test code = 2821) 1.2 UIU/ML COMPREHENSIVE METABOLIC [id number] 00:00:00 Test Item Value Reference Range Interpretation Comments GLUCOSE (test code = 2217) 100 MG/DL BUN (test code = 2208) 10 MG/DL CREATININE (test code = 2214) 0.61 MG/DL eGFR AMER. (test code 134 ML/MIN/1.73 = 60855) eGFR NON- AMER. (test 116 ML/MIN/1.73 code = 89651) CALCULATED BUN/CREAT (test 16 RATIO code = [...] code = 2219) 16 U/L COMPREHENSIVE METABOLIC [id number] 00:00:00 Test Item Value Reference Range Interpretation Comments GLUCOSE (test code = 2217) 100 MG/DL BUN (test code = 2208) 10 MG/DL CREATININE (test code = 2214) 0.61 MG/DL eGFR AMER. (test code 134 ML/MIN/1.73 = 11846) eGFR NON- AMER. (test 116 ML/MIN/1.73 code = 00228) CALCULATED BUN/CREAT (test 16 RATIO code = [...] (test code = 2219) 16 U/L LIPID [id number] 00:00:00 Test Item Value Reference Range Interpretation Comments CHOLESTEROL (test code = 2210) 166 MG/DL TRIGLYCERIDES (test code = 2232) 72 MG/DL HDL CHOLESTEROL (test code = 2220) 47 MG/DL CALCULATED LDL CHOL (test code = 105 MG/DL 2236) RISK RATIO LDL/HDL (test code = 2.23 RATIO 2238) LIPID [id number] 00:00:00 Test Item Value Reference Range Interpretation Comments CHOLESTEROL (test code = 2210) 166 MG/DL TRIGLYCERIDES (test code = 2232) 72 MG/DL HDL CHOLESTEROL (test code = 2220) 47 MG/DL CALCULATED LDL CHOL (test code = 105 MG/DL 2236) RISK RATIO LDL/HDL (test code = 2.23 RATIO 2238) [id number] 00:00:00 Test Item Value Reference Range Interpretation Comments TSH (test code = 2821) 1.2 UIU/ML [id number] 00:00:00 Test Item Value Reference Range Interpretation Comments TSH (test code = 2821) 1.2 UIU/ML [id number] 00:00:00 Test Item Value Reference Range Interpretation Comments TSH (test code = 2821) 1.2 UIU/ML COMPREHENSIVE METABOLIC [id number] 00:00:00 Test Item Value Reference Range Interpretation Comments GLUCOSE (test code = 2217) 100 MG/DL BUN (test code = 2208) 10 MG/DL CREATININE (test code = 2214) 0.61 MG/DL eGFR AMER. (test code 134 ML/MIN/1.73 = 70935) eGFR NON- AMER. (test 116 ML/MIN/1.73 code = 75708) CALCULATED BUN/CREAT (test 16 RATIO code = [...] code = 2219) 16 U/L COMPREHENSIVE METABOLIC [id number] 00:00:00 Test Item Value Reference Range Interpretation Comments GLUCOSE (test code = 2217) 100 MG/DL BUN (test code = 2208) 10 MG/DL CREATININE (test code = 2214) 0.61 MG/DL eGFR AMER. (test code 134 ML/MIN/1.73 = 49047) eGFR NON- AMER. (test 116 ML/MIN/1.73 code = 41698) CALCULATED BUN/CREAT (test 16 RATIO code = [...] (test code = 2219) 16 U/L LIPID [id number] 00:00:00 Test Item Value Reference Range Interpretation Comments CHOLESTEROL (test code = 2210) 166 MG/DL TRIGLYCERIDES (test code = 2232) 72 MG/DL HDL CHOLESTEROL (test code = 2220) 47 MG/DL CALCULATED LDL CHOL (test code = 105 MG/DL 223) RISK RATIO LDL/HDL (test code = 2.23 RATIO 2238) LIPID [id number] 00:00:00 Test Item Value Reference Range Interpretation Comments CHOLESTEROL (test code = 2210) 166 MG/DL TRIGLYCERIDES (test code = 2232) 72 MG/DL HDL CHOLESTEROL (test code = 2220) 47 MG/DL CALCULATED LDL CHOL (test code = 105 MG/DL 2237) RISK RATIO LDL/HDL (test code = 2.23 RATIO 2238) [id number] 00:00:00 Test Item Value Reference Range Interpretation Comments TSH (test code = 2821) 1.2 UIU/ML [id number] 00:00:00 Test Item Value Reference Range Interpretation Comments TSH (test code = 2821) 1.2 UIU/ML [id number] 00:00:00 Test Item Value Reference Range Interpretation Comments TSH (test code = 2821) 1.2 UIU/ML COMPREHENSIVE METABOLIC [id number] 00:00:00 Test Item Value Reference Range Interpretation Comments GLUCOSE (test code = 2217) 100 MG/DL BUN (test code = 2208) 10 MG/DL CREATININE (test code = 2214) 0.61 MG/DL eGFR AMER. (test code 134 ML/MIN/1.73 = 90639) eGFR NON- AMER. (test 116 ML/MIN/1.73 code = 73112) CALCULATED BUN/CREAT (test 16 RATIO code = [...] code = 2219) 16 U/L COMPREHENSIVE METABOLIC [id number] 00:00:00 Test Item Value Reference Range Interpretation Comments GLUCOSE (test code = 2217) 100 MG/DL BUN (test code = 2208) 10 MG/DL CREATININE (test code = 2214) 0.61 MG/DL eGFR AMER. (test code 134 ML/MIN/1.73 = 76134) eGFR NON- AMER. (test 116 ML/MIN/1.73 code = 75721) CALCULATED BUN/CREAT (test 16 RATIO code = [...] (test code = 2219) 16 U/L LIPID [id number] 00:00:00 Test Item Value Reference Range Interpretation Comments CHOLESTEROL (test code = 2210) 166 MG/DL TRIGLYCERIDES (test code = 2232) 72 MG/DL HDL CHOLESTEROL (test code = 2220) 47 MG/DL CALCULATED LDL CHOL (test code = 105 MG/DL 2236) RISK RATIO LDL/HDL (test code = 2.23 RATIO 2238) LIPID [id number] 00:00:00 Test Item Value Reference Range Interpretation Comments CHOLESTEROL (test code = 2210) 166 MG/DL TRIGLYCERIDES (test code = 2232) 72 MG/DL HDL CHOLESTEROL (test code = 2220) 47 MG/DL CALCULATED LDL CHOL (test code = 105 MG/DL 2236) RISK RATIO LDL/HDL (test code = 2.23 RATIO 2238) [id number] 00:00:00 Test Item Value Reference Range Interpretation Comments TSH (test code = 2821) 1.2 UIU/ML [id number] 00:00:00 Test Item Value Reference Range Interpretation Comments TSH (test code = 2821) 1.2 UIU/ML [id number] 00:00:00 Test Item Value Reference Range Interpretation Comments TSH (test code = 2821) 1.2 UIU/ML COMPREHENSIVE METABOLIC [id number] 00:00:00 Test Item Value Reference Range Interpretation Comments GLUCOSE (test code = 2217) 100 MG/DL BUN (test code = 2208) 10 MG/DL CREATININE (test code = 2214) 0.61 MG/DL eGFR AMER. (test code 134 ML/MIN/1.73 = 01358) eGFR NON- AMER. (test 116 ML/MIN/1.73 code = 10810) CALCULATED BUN/CREAT (test 16 RATIO code = [...] code = 2219) 16 U/L COMPREHENSIVE METABOLIC [id number] 00:00:00 Test Item Value Reference Range Interpretation Comments GLUCOSE (test code = 2217) 100 MG/DL BUN (test code = 2208) 10 MG/DL CREATININE (test code = 2214) 0.61 MG/DL eGFR AMER. (test code 134 ML/MIN/1.73 = 44832) eGFR NON- AMER. (test 116 ML/MIN/1.73 code = 15619) CALCULATED BUN/CREAT (test 16 RATIO code = [...] (test code = 2219) 16 U/L LIPID [id number] 00:00:00 Test Item Value Reference Range Interpretation Comments CHOLESTEROL (test code = 2210) 166 MG/DL TRIGLYCERIDES (test code = 2232) 72 MG/DL HDL CHOLESTEROL (test code = 2220) 47 MG/DL CALCULATED LDL CHOL (test code = 105 MG/DL 2237) RISK RATIO LDL/HDL (test code = 2.23 RATIO 2238) LIPID [id number] 00:00:00 Test Item Value Reference Range Interpretation Comments CHOLESTEROL (test code = 2210) 166 MG/DL TRIGLYCERIDES (test code = 2232) 72 MG/DL HDL CHOLESTEROL (test code = 2220) 47 MG/DL CALCULATED LDL CHOL (test code = 105 MG/DL 7) RISK RATIO LDL/HDL (test code = 2.23 RATIO 2238) [id number] 00:00:00 Test Item Value Reference Range Interpretation Comments TSH (test code = 2821) 1.2 UIU/ML [id number] 00:00:00 Test Item Value Reference Range Interpretation Comments TSH (test code = 2821) 1.2 UIU/ML [id number] 00:00:00 Test Item Value Reference Range Interpretation Comments TSH (test code = 2821) 1.2 UIU/ML COMPREHENSIVE METABOLIC [id number] 00:00:00 Test Item Value Reference Range Interpretation Comments GLUCOSE (test code = 2217) 100 MG/DL BUN (test code = 2208) 10 MG/DL CREATININE (test code = 2214) 0.61 MG/DL eGFR AMER. (test code 134 ML/MIN/1.73 = 74810) eGFR NON- AMER. (test 116 ML/MIN/1.73 code = 01273) CALCULATED BUN/CREAT (test 16 RATIO code = [...] code = 2219) 16 U/L COMPREHENSIVE METABOLIC [id number] 00:00:00 Test Item Value Reference Range Interpretation Comments GLUCOSE (test code = 2217) 100 MG/DL BUN (test code = 2208) 10 MG/DL CREATININE (test code = 2214) 0.61 MG/DL eGFR AMER. (test code 134 ML/MIN/1.73 = 24124) eGFR NON- AMER. (test 116 ML/MIN/1.73 code = 65839) CALCULATED BUN/CREAT (test 16 RATIO code = [...] (test code = 2219) 16 U/L LIPID [id number] 00:00:00 Test Item Value Reference Range Interpretation Comments CHOLESTEROL (test code = 2210) 166 MG/DL TRIGLYCERIDES (test code = 2232) 72 MG/DL HDL CHOLESTEROL (test code = 2220) 47 MG/DL CALCULATED LDL CHOL (test code = 105 MG/DL 2236) RISK RATIO LDL/HDL (test code = 2.23 RATIO 2238) LIPID [id number] 00:00:00 Test Item Value Reference Range Interpretation Comments CHOLESTEROL (test code = 2210) 166 MG/DL TRIGLYCERIDES (test code = 2232) 72 MG/DL HDL CHOLESTEROL (test code = 2220) 47 MG/DL CALCULATED LDL CHOL (test code = 105 MG/DL 2236) RISK RATIO LDL/HDL (test code = 2.23 RATIO 2238) [id number] 00:00:00 Test Item Value Reference Range Interpretation Comments TSH (test code = 2821) 1.2 UIU/ML [id number] 00:00:00 Test Item Value Reference Range Interpretation Comments TSH (test code = 2821) 1.2 UIU/ML [id number] 00:00:00 Test Item Value Reference Range Interpretation Comments TSH (test code = 2821) 1.2 UIU/ML COMPREHENSIVE METABOLIC [id number] 00:00:00 Test Item Value Reference Range Interpretation Comments GLUCOSE (test code = 2217) 100 MG/DL BUN (test code = 2208) 10 MG/DL CREATININE (test code = 2214) 0.61 MG/DL eGFR AMER. (test code 134 ML/MIN/1.73 = 22167) eGFR NON- AMER. (test 116 ML/MIN/1.73 code = 09335) CALCULATED BUN/CREAT (test 16 RATIO code = [...] code = 2219) 16 U/L COMPREHENSIVE METABOLIC [id number] 00:00:00 Test Item Value Reference Range Interpretation Comments GLUCOSE (test code = 2217) 100 MG/DL BUN (test code = 2208) 10 MG/DL CREATININE (test code = 2214) 0.61 MG/DL eGFR AMER. (test code 134 ML/MIN/1.73 = 88905) eGFR NON- AMER. (test 116 ML/MIN/1.73 code = 12250) CALCULATED BUN/CREAT (test 16 RATIO code = [...] code = 2219) 16 U/L COMPREHENSIVE METABOLIC [id number] 00:00:00 Test Item Value Reference Range Interpretation Comments GLUCOSE (test code = 2217) 100 MG/DL BUN (test code = 2208) 10 MG/DL CREATININE (test code = 2214) 0.61 MG/DL eGFR AMER. (test code 134 ML/MIN/1.73 = 56698) eGFR NON- AMER. (test 116 ML/MIN/1.73 code = 53599) CALCULATED BUN/CREAT (test 16 RATIO code = [...] (test code = 2219) 16 U/L LIPID [id number] 00:00:00 Test Item Value Reference Range Interpretation Comments CHOLESTEROL (test code = 2210) 166 MG/DL TRIGLYCERIDES (test code = 2232) 72 MG/DL HDL CHOLESTEROL (test code = 2220) 47 MG/DL CALCULATED LDL CHOL (test code = 105 MG/DL 2237) RISK RATIO LDL/HDL (test code = 2.23 RATIO 2238) LIPID [id number] 00:00:00 Test Item Value Reference Range Interpretation Comments CHOLESTEROL (test code = 2210) 166 MG/DL TRIGLYCERIDES (test code = 2232) 72 MG/DL HDL CHOLESTEROL (test code = 2220) 47 MG/DL CALCULATED LDL CHOL (test code = 105 MG/DL 2237) RISK RATIO LDL/HDL (test code = 2.23 RATIO 2238) [id number] 00:00:00 Test Item Value Reference Range Interpretation Comments TSH (test code = 2821) 1.2 UIU/ML [id number] 00:00:00 Test Item Value Reference Range Interpretation Comments TSH (test code = 2821) 1.2 UIU/ML [id number] 00:00:00 Test Item Value Reference Range Interpretation Comments TSH (test code = 2821) 1.2 UIU/ML LIPID [id number] 00:00:00 Test Item Value Reference Range Interpretation Comments CHOLESTEROL (test code = 2210) 166 MG/DL TRIGLYCERIDES (test code = 2232) 72 MG/DL HDL CHOLESTEROL (test code = 2220) 47 MG/DL CALCULATED LDL CHOL (test code = 105 MG/DL 2237) RISK RATIO LDL/HDL (test code = 2.23 RATIO 2238) COMPREHENSIVE METABOLIC [id number] 00:00:00 Test Item Value Reference Range Interpretation Comments GLUCOSE (test code = 2217) 100 MG/DL BUN (test code = 2208) 10 MG/DL CREATININE (test code = 2214) 0.61 MG/DL eGFR AMER. (test code 134 ML/MIN/1.73 = 85249) eGFR NON- AMER. (test 116 ML/MIN/1.73 code = 55320) CALCULATED BUN/CREAT (test 16 RATIO code = [...] code = 2219) 16 U/L COMPREHENSIVE METABOLIC [id number] 00:00:00 Test Item Value Reference Range Interpretation Comments GLUCOSE (test code = 2217) 100 MG/DL BUN (test code = 2208) 10 MG/DL CREATININE (test code = 2214) 0.61 MG/DL eGFR AMER. (test code 134 ML/MIN/1.73 = 97405) eGFR NON- AMER. (test 116 ML/MIN/1.73 code = 11823) CALCULATED BUN/CREAT (test 16 RATIO code = [...] (test code = 2219) 16 U/L LIPID [id number] 00:00:00 Test Item Value Reference Range Interpretation Comments CHOLESTEROL (test code = 2210) 166 MG/DL TRIGLYCERIDES (test code = 2232) 72 MG/DL HDL CHOLESTEROL (test code = 2220) 47 MG/DL CALCULATED LDL CHOL (test code = 105 MG/DL 2237) RISK RATIO LDL/HDL (test code = 2.23 RATIO 2238) LIPID [id number] 00:00:00 Test Item Value Reference Range Interpretation Comments CHOLESTEROL (test code = 2210) 166 MG/DL TRIGLYCERIDES (test code = 2232) 72 MG/DL HDL CHOLESTEROL (test code = 2220) 47 MG/DL CALCULATED LDL CHOL (test code = 105 MG/DL 2237) RISK RATIO LDL/HDL (test code = 2.23 RATIO 2238) [id number] 00:00:00 Test Item Value Reference Range Interpretation Comments TSH (test code = 2821) 1.2 UIU/ML [id number] 00:00:00 Test Item Value Reference Range Interpretation Comments TSH (test code = 2821) 1.2 UIU/ML [id number] 00:00:00 Test Item Value Reference Range Interpretation Comments TSH (test code = 2821) 1.2 UIU/ML [id number] 00:00:00 Test Item Value Reference Range Interpretation Comments TSH (test code = 2821) 1.2 UIU/ML [id number] 00:00:00 Test Item Value Reference Range Interpretation Comments TSH (test code = 2821) 1.2 UIU/ML COMPREHENSIVE METABOLIC [id number] 00:00:00 Test Item Value Reference Range Interpretation Comments GLUCOSE (test code = 2217) 100 MG/DL BUN (test code = 2208) 10 MG/DL CREATININE (test code = 2214) 0.61 MG/DL eGFR AMER. (test code 134 ML/MIN/1.73 = 72455) eGFR NON- AMER. (test 116 ML/MIN/1.73 code = 70194) CALCULATED BUN/CREAT (test 16 RATIO code = [...] code = 2219) 16 U/L COMPREHENSIVE METABOLIC [id number] 00:00:00 Test Item Value Reference Range Interpretation Comments GLUCOSE (test code = 2217) 100 MG/DL BUN (test code = 2208) 10 MG/DL CREATININE (test code = 2214) 0.61 MG/DL eGFR AMER. (test code 134 ML/MIN/1.73 = 07161) eGFR NON- AMER. (test 116 ML/MIN/1.73 code = 40382) CALCULATED BUN/CREAT (test 16 RATIO code = [...] = 0.2 MG/DL 2207) ALKALINE PHOSPHATASE (test 35 U/L code = 2204) SGOT (AST) (test code = 2218) 16 U/L SGPT (ALT) (test code = 2219) 16 U/L LIPID [id number] 00:00:00 Test Item Value Reference Range Interpretation Comments CHOLESTEROL (test code = 2210) 166 MG/DL TRIGLYCERIDES (test code = 2232) 72 MG/DL HDL CHOLESTEROL (test code = 2220) 47 MG/DL CALCULATED LDL CHOL (test code = 105 MG/DL 2237) RISK RATIO LDL/HDL (test code = 2.23 RATIO 2238) LIPID [id number] 00:00:00 Test Item Value Reference Range Interpretation Comments CHOLESTEROL (test code = 2210) 166 MG/DL TRIGLYCERIDES (test code = 2232) 72 MG/DL HDL CHOLESTEROL (test code = 2220) 47 MG/DL CALCULATED LDL CHOL (test code = 105 MG/DL 7) RISK RATIO LDL/HDL (test code = 2.23 RATIO 2238) [id number] 00:00:00 Test Item Value Reference Range Interpretation Comments TSH (test code = 2821) 1.2 UIU/ML [id number] 00:00:00 Test Item Value Reference Range Interpretation Comments TSH (test code = 2821) 1.2 UIU/ML [id number] 00:00:00 Test Item Value Reference Range Interpretation Comments TSH (test code = 2821) 1.2 UIU/ML COMPREHENSIVE METABOLIC [id number] 00:00:00 Test Item Value Reference Range Interpretation Comments GLUCOSE (test code = 2217) 100 MG/DL BUN (test code = 2208) 10 MG/DL CREATININE (test code = 2214) 0.61 MG/DL eGFR AMER. (test code 134 ML/MIN/1.73 = 96112) eGFR NON- AMER. (test 116 ML/MIN/1.73 code = 08259) CALCULATED BUN/CREAT (test 16 RATIO code = [...] code = 2219) 16 U/L COMPREHENSIVE METABOLIC [id number] 00:00:00 Test Item Value Reference Range Interpretation Comments GLUCOSE (test code = 2217) 100 MG/DL BUN (test code = 2208) 10 MG/DL CREATININE (test code = 2214) 0.61 MG/DL eGFR AMER. (test code 134 ML/MIN/1.73 = 97864) eGFR NON- AMER. (test 116 ML/MIN/1.73 code = 92590) CALCULATED BUN/CREAT (test 16 RATIO code = [...] (test code = 2219) 16 U/L LIPID [id number] 00:00:00 Test Item Value Reference Range Interpretation Comments CHOLESTEROL (test code = 2210) 166 MG/DL TRIGLYCERIDES (test code = 2232) 72 MG/DL HDL CHOLESTEROL (test code = 2220) 47 MG/DL CALCULATED LDL CHOL (test code = 105 MG/DL 2236) RISK RATIO LDL/HDL (test code = 2.23 RATIO 2238) LIPID [id number] 00:00:00 Test Item Value Reference Range Interpretation Comments CHOLESTEROL (test code = 2210) 166 MG/DL TRIGLYCERIDES (test code = 2232) 72 MG/DL HDL CHOLESTEROL (test code = 2220) 47 MG/DL CALCULATED LDL CHOL (test code = 105 MG/DL 2237) RISK RATIO LDL/HDL (test code = 2.23 RATIO 2238) [id number] 00:00:00 Test Item Value Reference Range Interpretation Comments TSH (test code = 2821) 1.2 UIU/ML [id number] 00:00:00 Test Item Value Reference Range Interpretation Comments TSH (test code = 2821) 1.2 UIU/ML [id number] 00:00:00 Test Item Value Reference Range Interpretation Comments TSH (test code = 2821) 1.2 UIU/ML CBC W/AUTO [id number] 00:00:00 Test Item Value Reference Range Interpretation [...] code = 1015) 243 K/UL CBC W/AUTO [id number] 00:00:00 Test Item Value Reference Range Interpretation [...] code = 1015) 243 K/UL CBC W/AUTO [id number] 00:00:00 Test Item Value Reference Range Interpretation [...] (test code = 1015) 243 K/UL HEMOGLOBIN [id number] 00:00:00 Test Item Value Reference Range Interpretation Comments HEMOGLOBIN A1c (test code = 68137) 6.4 % HEMOGLOBIN [id number] 00:00:00 Test Item Value Reference Range Interpretation Comments HEMOGLOBIN A1c (test code = 87549) 6.4 % HEMOGLOBIN [id number] 00:00:00 Test Item Value Reference Range Interpretation Comments HEMOGLOBIN A1c (test code = 65562) 6.4 % CBC W/AUTO [id number] 00:00:00 Test Item Value Reference Range Interpretation [...] code = 1015) 243 K/UL CBC W/AUTO [id number] 00:00:00 Test Item Value Reference Range Interpretation [...] code = 1015) 243 K/UL CBC W/AUTO [id number] 00:00:00 Test Item Value Reference Range Interpretation [...] (test code = 1015) 243 K/UL HEMOGLOBIN [id number] 00:00:00 Test Item Value Reference Range Interpretation Comments HEMOGLOBIN A1c (test code = 19951) 6.4 % HEMOGLOBIN [id number] 00:00:00 Test Item Value Reference Range Interpretation Comments HEMOGLOBIN A1c (test code = 01843) 6.4 % HEMOGLOBIN [id number] 00:00:00 Test Item Value Reference Range Interpretation Comments HEMOGLOBIN A1c (test code = 84366) 6.4 % CBC W/AUTO [id number] 00:00:00 Test Item Value Reference Range Interpretation [...] code = 1015) 243 K/UL CBC W/AUTO [id number] 00:00:00 Test Item Value Reference Range Interpretation [...] code = 1015) 243 K/UL CBC W/AUTO [id number] 00:00:00 Test Item Value Reference Range Interpretation [...] (test code = 1015) 243 K/UL HEMOGLOBIN [id number] 00:00:00 Test Item Value Reference Range Interpretation Comments HEMOGLOBIN A1c (test code = 26198) 6.4 % HEMOGLOBIN [id number] 00:00:00 Test Item Value Reference Range Interpretation Comments HEMOGLOBIN A1c (test code = 43708) 6.4 % HEMOGLOBIN [id number] 00:00:00 Test Item Value Reference Range Interpretation Comments HEMOGLOBIN A1c (test code = 45262) 6.4 % CBC W/AUTO [id number] 00:00:00 Test Item Value Reference Range Interpretation [...] code = 1015) 243 K/UL CBC W/AUTO [id number] 00:00:00 Test Item Value Reference Range Interpretation [...] code = 1015) 243 K/UL CBC W/AUTO [id number] 00:00:00 Test Item Value Reference Range Interpretation [...] (test code = 1015) 243 K/UL HEMOGLOBIN [id number] 00:00:00 Test Item Value Reference Range Interpretation Comments HEMOGLOBIN A1c (test code = 00107) 6.4 % HEMOGLOBIN [id number] 00:00:00 Test Item Value Reference Range Interpretation Comments HEMOGLOBIN A1c (test code = 00655) 6.4 % HEMOGLOBIN [id number] 00:00:00 Test Item Value Reference Range Interpretation Comments HEMOGLOBIN A1c (test code = 59247) 6.4 % CBC W/AUTO [id number] 00:00:00 Test Item Value Reference Range Interpretation [...] code = 1015) 243 K/UL CBC W/AUTO [id number] 00:00:00 Test Item Value Reference Range Interpretation [...] code = 1015) 243 K/UL CBC W/AUTO [id number] 00:00:00 Test Item Value Reference Range Interpretation [...] (test code = 1015) 243 K/UL HEMOGLOBIN [id number] 00:00:00 Test Item Value Reference Range Interpretation Comments HEMOGLOBIN A1c (test code = 58275) 6.4 % HEMOGLOBIN [id number] 00:00:00 Test Item Value Reference Range Interpretation Comments HEMOGLOBIN A1c (test code = 29553) 6.4 % HEMOGLOBIN [id number] 00:00:00 Test Item Value Reference Range Interpretation Comments HEMOGLOBIN A1c (test code = 76813) 6.4 % CBC W/AUTO [id number] 00:00:00 Test Item Value Reference Range Interpretation [...] code = 1015) 243 K/UL CBC W/AUTO [id number] 00:00:00 Test Item Value Reference Range Interpretation [...] code = 1015) 243 K/UL CBC W/AUTO [id number] 00:00:00 Test Item Value Reference Range Interpretation [...] (test code = 1015) 243 K/UL HEMOGLOBIN [id number] 00:00:00 Test Item Value Reference Range Interpretation Comments HEMOGLOBIN A1c (test code = 70144) 6.4 % HEMOGLOBIN [id number] 00:00:00 Test Item Value Reference Range Interpretation Comments HEMOGLOBIN A1c (test code = 54067) 6.4 % HEMOGLOBIN [id number] 00:00:00 Test Item Value Reference Range Interpretation Comments HEMOGLOBIN A1c (test code = 53066) 6.4 % CBC W/AUTO [id number] 00:00:00 Test Item Value Reference Range Interpretation [...] code = 1015) 243 K/UL CBC W/AUTO [id number] 00:00:00 Test Item Value Reference Range Interpretation [...] code = 1015) 243 K/UL CBC W/AUTO [id number] 00:00:00 Test Item Value Reference Range Interpretation [...] (test code = 1015) 243 K/UL HEMOGLOBIN [id number] 00:00:00 Test Item Value Reference Range Interpretation Comments HEMOGLOBIN A1c (test code = 98414) 6.4 % HEMOGLOBIN [id number] 00:00:00 Test Item Value Reference Range Interpretation Comments HEMOGLOBIN A1c (test code = 34065) 6.4 % HEMOGLOBIN [id number] 00:00:00 Test Item Value Reference Range Interpretation Comments HEMOGLOBIN A1c (test code = 50292) 6.4 % CBC W/AUTO [id number] 00:00:00 Test Item Value Reference Range Interpretation [...] code = 1015) 243 K/UL CBC W/AUTO [id number] 00:00:00 Test Item Value Reference Range Interpretation [...] (test code = 1015) 243 K/UL HEMOGLOBIN [id number] 00:00:00 Test Item Value Reference Range Interpretation Comments HEMOGLOBIN A1c (test code = 53825) 6.4 % HEMOGLOBIN [id number] 00:00:00 Test Item Value Reference Range Interpretation Comments HEMOGLOBIN A1c (test code = 22527) 6.4 % CBC W/AUTO [id number] 00:00:00 Test Item Value Reference Range Interpretation [...] code = 1015) 243 K/UL CBC W/AUTO [id number] 00:00:00 Test Item Value Reference Range Interpretation [...] code = 1015) 243 K/UL CBC W/AUTO [id number] 00:00:00 Test Item Value Reference Range Interpretation [...] (test code = 1015) 243 K/UL HEMOGLOBIN [id number] 00:00:00 Test Item Value Reference Range Interpretation Comments HEMOGLOBIN A1c (test code = 30235) 6.4 % HEMOGLOBIN [id number] 00:00:00 Test Item Value Reference Range Interpretation Comments HEMOGLOBIN A1c (test code = 16033) 6.4 % HEMOGLOBIN [id number] 00:00:00 Test Item Value Reference Range Interpretation Comments HEMOGLOBIN A1c (test code = 89134) 6.4 % CBC W/AUTO [id number] 00:00:00 Test Item Value Reference Range Interpretation [...] code = 1015) 243 K/UL CBC W/AUTO [id number] 00:00:00 Test Item Value Reference Range Interpretation [...] code = 1015) 243 K/UL CBC W/AUTO [id number] 00:00:00 Test Item Value Reference Range Interpretation [...] (test code = 1015) 243 K/UL HEMOGLOBIN [id number] 00:00:00 Test Item Value Reference Range Interpretation Comments HEMOGLOBIN A1c (test code = 29475) 6.4 % HEMOGLOBIN [id number] 00:00:00 Test Item Value Reference Range Interpretation Comments HEMOGLOBIN A1c (test code = 28761) 6.4 % HEMOGLOBIN [id number] 00:00:00 Test Item Value Reference Range Interpretation Comments HEMOGLOBIN A1c (test code = 96158) 6.4 % CBC W/AUTO [id number] 00:00:00 Test Item Value Reference Range Interpretation [...] code = 1015) 243 K/UL CBC W/AUTO [id number] 00:00:00 Test Item Value Reference Range Interpretation [...] code = 1015) 243 K/UL CBC W/AUTO [id number] 00:00:00 Test Item Value Reference Range Interpretation [...] (test code = 1015) 243 K/UL HEMOGLOBIN [id number] 00:00:00 Test Item Value Reference Range Interpretation Comments HEMOGLOBIN A1c (test code = 86177) 6.4 % HEMOGLOBIN [id number] 00:00:00 Test Item Value Reference Range Interpretation Comments HEMOGLOBIN A1c (test code = 67833) 6.4 % HEMOGLOBIN [id number] 00:00:00 Test Item Value Reference Range Interpretation Comments HEMOGLOBIN A1c (test code = 36075) 6.4 % CHLAMYDIA, AMPLIFIED, [id number] 00:00:00 Test Item Value Reference Range Interpretation Comments CHLAMYDIA, AMPLIFIED (test code = NEGATIVE 84649) CHLAMYDIA, AMPLIFIED, [id number] 00:00:00 Test Item Value Reference Range Interpretation Comments CHLAMYDIA, AMPLIFIED (test code = NEGATIVE 29994) GC, AMPLIFIED, [id number] 00:00:00 Test Item Value Reference Range Interpretation Comments GONORRHEA, AMPLIFIED (test code = NEGATIVE 80547) GC, AMPLIFIED, [id number] 00:00:00 Test Item Value Reference Range Interpretation Comments GONORRHEA, AMPLIFIED (test code = NEGATIVE 38577) HIV AB/AG COMBO RFLX [id number] 00:00:00 Test Item Value Reference Range Interpretation Comments HIV AB/AG COMBO RFLX CONF (test NON-REACTIVE code = 3514) HIV AB/AG COMBO RFLX [id number] 00:00:00 Test Item Value Reference Range Interpretation Comments HIV AB/AG COMBO RFLX CONF (test NON-REACTIVE code = 3514) [id number] 00:00:00 Test Item Value Reference Range Interpretation Comments RPR RESULT (test code = NON-REACTIVE 3501) RPR TITER (test code = 3500) NOT INDIC. TITER [id number] 00:00:00 Test Item Value Reference Range Interpretation Comments RPR RESULT (test code = NON-REACTIVE 3501) RPR TITER (test code = 3500) NOT INDIC. TITER [id number] 00:00:00 Test Item Value Reference Range Interpretation [...] INTERPRETATION HEPATITIS B: (NOTE) (test code = 96400) INTERPRETATION HEPATITIS C: (NOTE) (test code = 21448) HEPATITIS PROFILE (A,B,C)2015-06-24 00:00:00 Test Item Value [...] INTERPRETATION HEPATITIS B: (NOTE) (test code = 76802) INTERPRETATION HEPATITIS C: (NOTE) (test code = 99031) COMPREHENSIVE METABOLIC [id number] 00:00:00 Test Item Value Reference Range Interpretation Comments GLUCOSE (test code = 2217) 105 MG/DL BUN (test code = 2208) 11 MG/DL CREATININE (test code = 2214) 0.80 MG/DL eGFR AMER. (test code 109 ML/MIN/1.73 = 59200) eGFR NON- AMER. (test 94 ML/MIN/1.73 code = 94528) CALCULATED BUN/CREAT (test 14 RATIO code = [...] code = 2219) 14 U/L COMPREHENSIVE METABOLIC [id number] 00:00:00 Test Item Value Reference Range Interpretation Comments GLUCOSE (test code = 2217) 105 MG/DL BUN (test code = 2208) 11 MG/DL CREATININE (test code = 2214) 0.80 MG/DL eGFR AMER. (test code 109 ML/MIN/1.73 = 90276) eGFR NON- AMER. (test 94 ML/MIN/1.73 code = 58344) CALCULATED BUN/CREAT (test 14 RATIO code = [...] (test code = 2219) 14 U/L LIPID [id number] 00:00:00 Test Item Value Reference Range Interpretation Comments CHOLESTEROL (test code = 2210) 211 MG/DL TRIGLYCERIDES (test code = 2232) 209 MG/DL HDL CHOLESTEROL (test code = 2220) 38 MG/DL CALCULATED LDL CHOL (test code = 131 MG/DL 2237) RISK RATIO LDL/HDL (test code = 3.45 RATIO 2238) LIPID [id number] 00:00:00 Test Item Value Reference Range Interpretation Comments CHOLESTEROL (test code = 2210) 211 MG/DL TRIGLYCERIDES (test code = 2232) 209 MG/DL HDL CHOLESTEROL (test code = 2220) 38 MG/DL CALCULATED LDL CHOL (test code = 131 MG/DL 2237) RISK RATIO LDL/HDL (test code = 3.45 RATIO 2238) CBC W/AUTO [id number] 00:00:00 Test Item Value Reference Range Interpretation [...] code = 1015) 254 K/UL CBC W/AUTO [id number] 00:00:00 Test Item Value Reference Range Interpretation [...] code = 1015) 254 K/UL CBC W/AUTO [id number] 00:00:00 Test Item Value Reference Range Interpretation [...] (test code = 1015) 254 K/UL HEMOGLOBIN [id number] 00:00:00 Test Item Value Reference Range Interpretation Comments HEMOGLOBIN A1c (test code = 54168) 6.9 % HEMOGLOBIN [id number] 00:00:00 Test Item Value Reference Range Interpretation Comments HEMOGLOBIN A1c (test code = 54495) 6.9 % HEMOGLOBIN [id number] 00:00:00 Test Item Value Reference Range Interpretation Comments HEMOGLOBIN A1c (test code = 72313) 6.9 % [id number] 00:00:00 Test Item Value Reference Range Interpretation Comments TSH (test code = 2821) 0.5 UIU/ML [id number] 00:00:00 Test Item Value Reference Range Interpretation Comments TSH (test code = 2821) 0.5 UIU/ML [id number] 00:00:00 Test Item Value Reference Range Interpretation Comments TSH (test code = 2821) 0.5 UIU/ML HEPATITIS A IgM [REFLEX]2015-06-24 00:00:00 Test Item Value Reference Range Interpretation Comments HEPATITIS A IgM (test code = NON-REACTIVE 2728) CHLAMYDIA, AMPLIFIED, [id number] 00:00:00 Test Item Value Reference Range Interpretation Comments CHLAMYDIA, AMPLIFIED (test code = NEGATIVE 84476) CHLAMYDIA, AMPLIFIED, [id number] 00:00:00 Test Item Value Reference Range Interpretation Comments CHLAMYDIA, AMPLIFIED (test code = NEGATIVE 81680) GC, AMPLIFIED, [id number] 00:00:00 Test Item Value Reference Range Interpretation Comments GONORRHEA, AMPLIFIED (test code = NEGATIVE 06201) GC, AMPLIFIED, [id number] 00:00:00 Test Item Value Reference Range Interpretation Comments GONORRHEA, AMPLIFIED (test code = NEGATIVE 94650) HIV AB/AG COMBO RFLX [id number] 00:00:00 Test Item Value Reference Range Interpretation Comments HIV AB/AG COMBO RFLX CONF (test NON-REACTIVE code = 3514) HIV AB/AG COMBO RFLX [id number] 00:00:00 Test Item Value Reference Range Interpretation Comments HIV AB/AG COMBO RFLX CONF (test NON-REACTIVE code = 3514) [id number] 00:00:00 Test Item Value Reference Range Interpretation Comments RPR RESULT (test code = NON-REACTIVE 3501) RPR TITER (test code = 3500) NOT INDIC. TITER [id number] 00:00:00 Test Item Value Reference Range Interpretation Comments RPR RESULT (test code = NON-REACTIVE 3501) RPR TITER (test code = 3500) NOT INDIC. TITER [id number] 00:00:00 Test Item Value Reference Range Interpretation [...] INTERPRETATION HEPATITIS B: (NOTE) (test code = 68079) INTERPRETATION HEPATITIS C: (NOTE) (test code = 03231) HEPATITIS PROFILE (A,B,C)2015-06-24 00:00:00 Test Item Value [...] INTERPRETATION HEPATITIS B: (NOTE) (test code = 01432) INTERPRETATION HEPATITIS C: (NOTE) (test code = 84889) COMPREHENSIVE METABOLIC [id number] 00:00:00 Test Item Value Reference Range Interpretation Comments GLUCOSE (test code = 2217) 105 MG/DL BUN (test code = 2208) 11 MG/DL CREATININE (test code = 2214) 0.80 MG/DL eGFR AMER. (test code 109 ML/MIN/1.73 = 82137) eGFR NON- AMER. (test 94 ML/MIN/1.73 code = 80655) CALCULATED BUN/CREAT (test 14 RATIO code = [...] code = 2219) 14 U/L COMPREHENSIVE METABOLIC [id number] 00:00:00 Test Item Value Reference Range Interpretation Comments GLUCOSE (test code = 2217) 105 MG/DL BUN (test code = 2208) 11 MG/DL CREATININE (test code = 2214) 0.80 MG/DL eGFR AMER. (test code 109 ML/MIN/1.73 = 07732) eGFR NON- AMER. (test 94 ML/MIN/1.73 code = 72929) CALCULATED BUN/CREAT (test 14 RATIO code = [...] (test code = 2219) 14 U/L LIPID [id number] 00:00:00 Test Item Value Reference Range Interpretation Comments CHOLESTEROL (test code = 2210) 211 MG/DL TRIGLYCERIDES (test code = 2232) 209 MG/DL HDL CHOLESTEROL (test code = 2220) 38 MG/DL CALCULATED LDL CHOL (test code = 131 MG/DL 2236) RISK RATIO LDL/HDL (test code = 3.45 RATIO 2238) LIPID [id number] 00:00:00 Test Item Value Reference Range Interpretation Comments CHOLESTEROL (test code = 2210) 211 MG/DL TRIGLYCERIDES (test code = 2232) 209 MG/DL HDL CHOLESTEROL (test code = 2220) 38 MG/DL CALCULATED LDL CHOL (test code = 131 MG/DL 7) RISK RATIO LDL/HDL (test code = 3.45 RATIO 2238) CBC W/AUTO [id number] 00:00:00 Test Item Value Reference Range Interpretation [...] code = 1015) 254 K/UL CBC W/AUTO [id number] 00:00:00 Test Item Value Reference Range Interpretation [...] code = 1015) 254 K/UL CBC W/AUTO [id number] 00:00:00 Test Item Value Reference Range Interpretation [...] (test code = 1015) 254 K/UL HEMOGLOBIN [id number] 00:00:00 Test Item Value Reference Range Interpretation Comments HEMOGLOBIN A1c (test code = 82079) 6.9 % HEMOGLOBIN [id number] 00:00:00 Test Item Value Reference Range Interpretation Comments HEMOGLOBIN A1c (test code = 08757) 6.9 % HEMOGLOBIN [id number] 00:00:00 Test Item Value Reference Range Interpretation Comments HEMOGLOBIN A1c (test code = 15887) 6.9 % [id number] 00:00:00 Test Item Value Reference Range Interpretation Comments TSH (test code = 2821) 0.5 UIU/ML [id number] 00:00:00 Test Item Value Reference Range Interpretation Comments TSH (test code = 2821) 0.5 UIU/ML [id number] 00:00:00 Test Item Value Reference Range Interpretation Comments TSH (test code = 2821) 0.5 UIU/ML HEPATITIS A IgM [REFLEX]2015-06-24 00:00:00 Test Item Value Reference Range Interpretation Comments HEPATITIS A IgM (test code = NON-REACTIVE 2728) CHLAMYDIA, AMPLIFIED, [id number] 00:00:00 Test Item Value Reference Range Interpretation Comments CHLAMYDIA, AMPLIFIED (test code = NEGATIVE 36870) CHLAMYDIA, AMPLIFIED, [id number] 00:00:00 Test Item Value Reference Range Interpretation Comments CHLAMYDIA, AMPLIFIED (test code = NEGATIVE 50409) GC, AMPLIFIED, [id number] 00:00:00 Test Item Value Reference Range Interpretation Comments GONORRHEA, AMPLIFIED (test code = NEGATIVE 98478) GC, AMPLIFIED, [id number] 00:00:00 Test Item Value Reference Range Interpretation Comments GONORRHEA, AMPLIFIED (test code = NEGATIVE 78023) HIV AB/AG COMBO RFLX [id number] 00:00:00 Test Item Value Reference Range Interpretation Comments HIV AB/AG COMBO RFLX CONF (test NON-REACTIVE code = 3514) HIV AB/AG COMBO RFLX [id number] 00:00:00 Test Item Value Reference Range Interpretation Comments HIV AB/AG COMBO RFLX CONF (test NON-REACTIVE code = 3514) [id number] 00:00:00 Test Item Value Reference Range Interpretation Comments RPR RESULT (test code = NON-REACTIVE 3501) RPR TITER (test code = 3500) NOT INDIC. TITER [id number] 00:00:00 Test Item Value Reference Range Interpretation Comments RPR RESULT (test code = NON-REACTIVE 3501) RPR TITER (test code = 3500) NOT INDIC. TITER [id number] 00:00:00 Test Item Value Reference Range Interpretation [...] INTERPRETATION HEPATITIS B: (NOTE) (test code = 45505) INTERPRETATION HEPATITIS C: (NOTE) (test code = 07844) HEPATITIS PROFILE (A,B,C)2015-06-24 00:00:00 Test Item Value [...] INTERPRETATION HEPATITIS B: (NOTE) (test code = 13446) INTERPRETATION HEPATITIS C: (NOTE) (test code = 26986) COMPREHENSIVE METABOLIC [id number] 00:00:00 Test Item Value Reference Range Interpretation Comments GLUCOSE (test code = 2217) 105 MG/DL BUN (test code = 2208) 11 MG/DL CREATININE (test code = 2214) 0.80 MG/DL eGFR AMER. (test code 109 ML/MIN/1.73 = 11566) eGFR NON- AMER. (test 94 ML/MIN/1.73 code = 93999) CALCULATED BUN/CREAT (test 14 RATIO code = [...] code = 2219) 14 U/L COMPREHENSIVE METABOLIC [id number] 00:00:00 Test Item Value Reference Range Interpretation Comments GLUCOSE (test code = 2217) 105 MG/DL BUN (test code = 2208) 11 MG/DL CREATININE (test code = 2214) 0.80 MG/DL eGFR AMER. (test code 109 ML/MIN/1.73 = 99251) eGFR NON- AMER. (test 94 ML/MIN/1.73 code = 58574) CALCULATED BUN/CREAT (test 14 RATIO code = [...] (test code = 2219) 14 U/L LIPID [id number] 00:00:00 Test Item Value Reference Range Interpretation Comments CHOLESTEROL (test code = 2210) 211 MG/DL TRIGLYCERIDES (test code = 2232) 209 MG/DL HDL CHOLESTEROL (test code = 2220) 38 MG/DL CALCULATED LDL CHOL (test code = 131 MG/DL 2237) RISK RATIO LDL/HDL (test code = 3.45 RATIO 2238) LIPID [id number] 00:00:00 Test Item Value Reference Range Interpretation Comments CHOLESTEROL (test code = 2210) 211 MG/DL TRIGLYCERIDES (test code = 2232) 209 MG/DL HDL CHOLESTEROL (test code = 2220) 38 MG/DL CALCULATED LDL CHOL (test code = 131 MG/DL 2237) RISK RATIO LDL/HDL (test code = 3.45 RATIO 2238) CBC W/AUTO [id number] 00:00:00 Test Item Value Reference Range Interpretation [...] code = 1015) 254 K/UL CBC W/AUTO [id number] 00:00:00 Test Item Value Reference Range Interpretation [...] code = 1015) 254 K/UL CBC W/AUTO [id number] 00:00:00 Test Item Value Reference Range Interpretation [...] (test code = 1015) 254 K/UL HEMOGLOBIN [id number] 00:00:00 Test Item Value Reference Range Interpretation Comments HEMOGLOBIN A1c (test code = 21001) 6.9 % HEMOGLOBIN [id number] 00:00:00 Test Item Value Reference Range Interpretation Comments HEMOGLOBIN A1c (test code = 28366) 6.9 % HEMOGLOBIN [id number] 00:00:00 Test Item Value Reference Range Interpretation Comments HEMOGLOBIN A1c (test code = 38396) 6.9 % [id number] 00:00:00 Test Item Value Reference Range Interpretation Comments TSH (test code = 2821) 0.5 UIU/ML [id number] 00:00:00 Test Item Value Reference Range Interpretation Comments TSH (test code = 2821) 0.5 UIU/ML [id number] 00:00:00 Test Item Value Reference Range Interpretation Comments TSH (test code = 2821) 0.5 UIU/ML HEPATITIS A IgM [REFLEX]2015-06-24 00:00:00 Test Item Value Reference Range Interpretation Comments HEPATITIS A IgM (test code = NON-REACTIVE 8647) CHLAMYDIA, AMPLIFIED, [id number] 00:00:00 Test Item Value Reference Range Interpretation Comments CHLAMYDIA, AMPLIFIED (test code = NEGATIVE 43016) CHLAMYDIA, AMPLIFIED, [id number] 00:00:00 Test Item Value Reference Range Interpretation Comments CHLAMYDIA, AMPLIFIED (test code = NEGATIVE 47523) GC, AMPLIFIED, [id number] 00:00:00 Test Item Value Reference Range Interpretation Comments GONORRHEA, AMPLIFIED (test code = NEGATIVE 72049) GC, AMPLIFIED, [id number] 00:00:00 Test Item Value Reference Range Interpretation Comments GONORRHEA, AMPLIFIED (test code = NEGATIVE 95944) HIV AB/AG COMBO RFLX [id number] 00:00:00 Test Item Value Reference Range Interpretation Comments HIV AB/AG COMBO RFLX CONF (test NON-REACTIVE code = 3514) HIV AB/AG COMBO RFLX [id number] 00:00:00 Test Item Value Reference Range Interpretation Comments HIV AB/AG COMBO RFLX CONF (test NON-REACTIVE code = 3514) [id number] 00:00:00 Test Item Value Reference Range Interpretation Comments RPR RESULT (test code = NON-REACTIVE 3501) RPR TITER (test code = 3500) NOT INDIC. TITER [id number] 00:00:00 Test Item Value Reference Range Interpretation Comments RPR RESULT (test code = NON-REACTIVE 3501) RPR TITER (test code = 3500) NOT INDIC. TITER [id number] 00:00:00 Test Item Value Reference Range Interpretation [...] INTERPRETATION HEPATITIS B: (NOTE) (test code = 35750) INTERPRETATION HEPATITIS C: (NOTE) (test code = 72271) HEPATITIS PROFILE (A,B,C)2015-06-24 00:00:00 Test Item Value [...] INTERPRETATION HEPATITIS B: (NOTE) (test code = 89979) INTERPRETATION HEPATITIS C: (NOTE) (test code = 49739) COMPREHENSIVE METABOLIC [id number] 00:00:00 Test Item Value Reference Range Interpretation Comments GLUCOSE (test code = 2217) 105 MG/DL BUN (test code = 2208) 11 MG/DL CREATININE (test code = 2214) 0.80 MG/DL eGFR AMER. (test code 109 ML/MIN/1.73 = 97020) eGFR NON- AMER. (test 94 ML/MIN/1.73 code = 95897) CALCULATED BUN/CREAT (test 14 RATIO code = [...] code = 2219) 14 U/L COMPREHENSIVE METABOLIC [id number] 00:00:00 Test Item Value Reference Range Interpretation Comments GLUCOSE (test code = 2217) 105 MG/DL BUN (test code = 2208) 11 MG/DL CREATININE (test code = 2214) 0.80 MG/DL eGFR AMER. (test code 109 ML/MIN/1.73 = 94403) eGFR NON- AMER. (test 94 ML/MIN/1.73 code = 51815) CALCULATED BUN/CREAT (test 14 RATIO code = [...] (test code = 2219) 14 U/L LIPID [id number] 00:00:00 Test Item Value Reference Range Interpretation Comments CHOLESTEROL (test code = 2210) 211 MG/DL TRIGLYCERIDES (test code = 2232) 209 MG/DL HDL CHOLESTEROL (test code = 2220) 38 MG/DL CALCULATED LDL CHOL (test code = 131 MG/DL 2237) RISK RATIO LDL/HDL (test code = 3.45 RATIO 2238) LIPID [id number] 00:00:00 Test Item Value Reference Range Interpretation Comments CHOLESTEROL (test code = 2210) 211 MG/DL TRIGLYCERIDES (test code = 2232) 209 MG/DL HDL CHOLESTEROL (test code = 2220) 38 MG/DL CALCULATED LDL CHOL (test code = 131 MG/DL 2237) RISK RATIO LDL/HDL (test code = 3.45 RATIO 2238) CBC W/AUTO [id number] 00:00:00 Test Item Value Reference Range Interpretation [...] code = 1015) 254 K/UL CBC W/AUTO [id number] 00:00:00 Test Item Value Reference Range Interpretation [...] code = 1015) 254 K/UL CBC W/AUTO [id number] 00:00:00 Test Item Value Reference Range Interpretation [...] (test code = 1015) 254 K/UL HEMOGLOBIN [id number] 00:00:00 Test Item Value Reference Range Interpretation Comments HEMOGLOBIN A1c (test code = 39814) 6.9 % HEMOGLOBIN [id number] 00:00:00 Test Item Value Reference Range Interpretation Comments HEMOGLOBIN A1c (test code = 30000) 6.9 % HEMOGLOBIN [id number] 00:00:00 Test Item Value Reference Range Interpretation Comments HEMOGLOBIN A1c (test code = 79626) 6.9 % [id number] 00:00:00 Test Item Value Reference Range Interpretation Comments TSH (test code = 2821) 0.5 UIU/ML [id number] 00:00:00 Test Item Value Reference Range Interpretation Comments TSH (test code = 2821) 0.5 UIU/ML [id number] 00:00:00 Test Item Value Reference Range Interpretation Comments TSH (test code = 2821) 0.5 UIU/ML HEPATITIS A IgM [REFLEX]2015-06-24 00:00:00 Test Item Value Reference Range Interpretation Comments HEPATITIS A IgM (test code = NON-REACTIVE 2728) CHLAMYDIA, AMPLIFIED, [id number] 00:00:00 Test Item Value Reference Range Interpretation Comments CHLAMYDIA, AMPLIFIED (test code = NEGATIVE 46078) CHLAMYDIA, AMPLIFIED, [id number] 00:00:00 Test Item Value Reference Range Interpretation Comments CHLAMYDIA, AMPLIFIED (test code = NEGATIVE 60266) GC, AMPLIFIED, [id number] 00:00:00 Test Item Value Reference Range Interpretation Comments GONORRHEA, AMPLIFIED (test code = NEGATIVE 13983) GC, AMPLIFIED, [id number] 00:00:00 Test Item Value Reference Range Interpretation Comments GONORRHEA, AMPLIFIED (test code = NEGATIVE 66016) HIV AB/AG COMBO RFLX [id number] 00:00:00 Test Item Value Reference Range Interpretation Comments HIV AB/AG COMBO RFLX CONF (test NON-REACTIVE code = 3514) HIV AB/AG COMBO RFLX [id number] 00:00:00 Test Item Value Reference Range Interpretation Comments HIV AB/AG COMBO RFLX CONF (test NON-REACTIVE code = 3514) [id number] 00:00:00 Test Item Value Reference Range Interpretation Comments RPR RESULT (test code = NON-REACTIVE 3501) RPR TITER (test code = 3500) NOT INDIC. TITER [id number] 00:00:00 Test Item Value Reference Range Interpretation Comments RPR RESULT (test code = NON-REACTIVE 3501) RPR TITER (test code = 3500) NOT INDIC. TITER [id number] 00:00:00 Test Item Value Reference Range Interpretation [...] INTERPRETATION HEPATITIS B: (NOTE) (test code = 70721) INTERPRETATION HEPATITIS C: (NOTE) (test code = 32054) HEPATITIS PROFILE (A,B,C)2015-06-24 00:00:00 Test Item Value [...] INTERPRETATION HEPATITIS B: (NOTE) (test code = 49009) INTERPRETATION HEPATITIS C: (NOTE) (test code = 68322) COMPREHENSIVE METABOLIC [id number] 00:00:00 Test Item Value Reference Range Interpretation Comments GLUCOSE (test code = 2217) 105 MG/DL BUN (test code = 2208) 11 MG/DL CREATININE (test code = 2214) 0.80 MG/DL eGFR AMER. (test code 109 ML/MIN/1.73 = 79230) eGFR NON- AMER. (test 94 ML/MIN/1.73 code = 99418) CALCULATED BUN/CREAT (test 14 RATIO code = [...] code = 2219) 14 U/L COMPREHENSIVE METABOLIC [id number] 00:00:00 Test Item Value Reference Range Interpretation Comments GLUCOSE (test code = 2217) 105 MG/DL BUN (test code = 2208) 11 MG/DL CREATININE (test code = 2214) 0.80 MG/DL eGFR AMER. (test code 109 ML/MIN/1.73 = 23559) eGFR NON- AMER. (test 94 ML/MIN/1.73 code = 30104) CALCULATED BUN/CREAT (test 14 RATIO code = [...] (test code = 2219) 14 U/L LIPID [id number] 00:00:00 Test Item Value Reference Range Interpretation Comments CHOLESTEROL (test code = 2210) 211 MG/DL TRIGLYCERIDES (test code = 2232) 209 MG/DL HDL CHOLESTEROL (test code = 2220) 38 MG/DL CALCULATED LDL CHOL (test code = 131 MG/DL 2237) RISK RATIO LDL/HDL (test code = 3.45 RATIO 2238) LIPID [id number] 00:00:00 Test Item Value Reference Range Interpretation Comments CHOLESTEROL (test code = 2210) 211 MG/DL TRIGLYCERIDES (test code = 2232) 209 MG/DL HDL CHOLESTEROL (test code = 2220) 38 MG/DL CALCULATED LDL CHOL (test code = 131 MG/DL 2237) RISK RATIO LDL/HDL (test code = 3.45 RATIO 2238) CBC W/AUTO [id number] 00:00:00 Test Item Value Reference Range Interpretation [...] code = 1015) 254 K/UL CBC W/AUTO [id number] 00:00:00 Test Item Value Reference Range Interpretation [...] code = 1015) 254 K/UL CBC W/AUTO [id number] 00:00:00 Test Item Value Reference Range Interpretation [...] (test code = 1015) 254 K/UL HEMOGLOBIN [id number] 00:00:00 Test Item Value Reference Range Interpretation Comments HEMOGLOBIN A1c (test code = 64935) 6.9 % HEMOGLOBIN [id number] 00:00:00 Test Item Value Reference Range Interpretation Comments HEMOGLOBIN A1c (test code = 34823) 6.9 % HEMOGLOBIN [id number] 00:00:00 Test Item Value Reference Range Interpretation Comments HEMOGLOBIN A1c (test code = 19525) 6.9 % [id number] 00:00:00 Test Item Value Reference Range Interpretation Comments TSH (test code = 2821) 0.5 UIU/ML [id number] 00:00:00 Test Item Value Reference Range Interpretation Comments TSH (test code = 2821) 0.5 UIU/ML [id number] 00:00:00 Test Item Value Reference Range Interpretation Comments TSH (test code = 2821) 0.5 UIU/ML HEPATITIS A IgM [REFLEX]2015-06-24 00:00:00 Test Item Value Reference Range Interpretation Comments HEPATITIS A IgM (test code = NON-REACTIVE 6518) CHLAMYDIA, AMPLIFIED, [id number] 00:00:00 Test Item Value Reference Range Interpretation Comments CHLAMYDIA, AMPLIFIED (test code = NEGATIVE 37719) CHLAMYDIA, AMPLIFIED, [id number] 00:00:00 Test Item Value Reference Range Interpretation Comments CHLAMYDIA, AMPLIFIED (test code = NEGATIVE 07821) GC, AMPLIFIED, [id number] 00:00:00 Test Item Value Reference Range Interpretation Comments GONORRHEA, AMPLIFIED (test code = NEGATIVE 09663) GC, AMPLIFIED, [id number] 00:00:00 Test Item Value Reference Range Interpretation Comments GONORRHEA, AMPLIFIED (test code = NEGATIVE 90608) HIV AB/AG COMBO RFLX [id number] 00:00:00 Test Item Value Reference Range Interpretation Comments HIV AB/AG COMBO RFLX CONF (test NON-REACTIVE code = 3514) HIV AB/AG COMBO RFLX [id number] 00:00:00 Test Item Value Reference Range Interpretation Comments HIV AB/AG COMBO RFLX CONF (test NON-REACTIVE code = 3514) [id number] 00:00:00 Test Item Value Reference Range Interpretation Comments RPR RESULT (test code = NON-REACTIVE 3501) RPR TITER (test code = 3500) NOT INDIC. TITER [id number] 00:00:00 Test Item Value Reference Range Interpretation Comments RPR RESULT (test code = NON-REACTIVE 3501) RPR TITER (test code = 3500) NOT INDIC. TITER [id number] 00:00:00 Test Item Value Reference Range Interpretation [...] INTERPRETATION HEPATITIS B: (NOTE) (test code = 14186) INTERPRETATION HEPATITIS C: (NOTE) (test code = 67847) HEPATITIS PROFILE (A,B,C)2015-06-24 00:00:00 Test Item Value [...] INTERPRETATION HEPATITIS B: (NOTE) (test code = 64572) INTERPRETATION HEPATITIS C: (NOTE) (test code = 37509) COMPREHENSIVE METABOLIC [id number] 00:00:00 Test Item Value Reference Range Interpretation Comments GLUCOSE (test code = 2217) 105 MG/DL BUN (test code = 2208) 11 MG/DL CREATININE (test code = 2214) 0.80 MG/DL eGFR AMER. (test code 109 ML/MIN/1.73 = 59738) eGFR NON- AMER. (test 94 ML/MIN/1.73 code = 49648) CALCULATED BUN/CREAT (test 14 RATIO code = [...] code = 2219) 14 U/L COMPREHENSIVE METABOLIC [id number] 00:00:00 Test Item Value Reference Range Interpretation Comments GLUCOSE (test code = 2217) 105 MG/DL BUN (test code = 2208) 11 MG/DL CREATININE (test code = 2214) 0.80 MG/DL eGFR AMER. (test code 109 ML/MIN/1.73 = 74506) eGFR NON- AMER. (test 94 ML/MIN/1.73 code = 23083) CALCULATED BUN/CREAT (test 14 RATIO code = [...] (test code = 2219) 14 U/L LIPID [id number] 00:00:00 Test Item Value Reference Range Interpretation Comments CHOLESTEROL (test code = 2210) 211 MG/DL TRIGLYCERIDES (test code = 2232) 209 MG/DL HDL CHOLESTEROL (test code = 2220) 38 MG/DL CALCULATED LDL CHOL (test code = 131 MG/DL 7) RISK RATIO LDL/HDL (test code = 3.45 RATIO 2238) LIPID [id number] 00:00:00 Test Item Value Reference Range Interpretation Comments CHOLESTEROL (test code = 2210) 211 MG/DL TRIGLYCERIDES (test code = 2232) 209 MG/DL HDL CHOLESTEROL (test code = 2220) 38 MG/DL CALCULATED LDL CHOL (test code = 131 MG/DL 7) RISK RATIO LDL/HDL (test code = 3.45 RATIO 2238) CBC W/AUTO [id number] 00:00:00 Test Item Value Reference Range Interpretation [...] code = 1015) 254 K/UL CBC W/AUTO [id number] 00:00:00 Test Item Value Reference Range Interpretation [...] code = 1015) 254 K/UL CBC W/AUTO [id number] 00:00:00 Test Item Value Reference Range Interpretation [...] (test code = 1015) 254 K/UL HEMOGLOBIN [id number] 00:00:00 Test Item Value Reference Range Interpretation Comments HEMOGLOBIN A1c (test code = 00567) 6.9 % HEMOGLOBIN [id number] 00:00:00 Test Item Value Reference Range Interpretation Comments HEMOGLOBIN A1c (test code = 39747) 6.9 % HEMOGLOBIN [id number] 00:00:00 Test Item Value Reference Range Interpretation Comments HEMOGLOBIN A1c (test code = 65352) 6.9 % [id number] 00:00:00 Test Item Value Reference Range Interpretation Comments TSH (test code = 2821) 0.5 UIU/ML [id number] 00:00:00 Test Item Value Reference Range Interpretation Comments TSH (test code = 2821) 0.5 UIU/ML [id number] 00:00:00 Test Item Value Reference Range Interpretation Comments TSH (test code = 2821) 0.5 UIU/ML HEPATITIS A IgM [REFLEX]2015-06-24 00:00:00 Test Item Value Reference Range Interpretation Comments HEPATITIS A IgM (test code = NON-REACTIVE 2728) CHLAMYDIA, AMPLIFIED, [id number] 00:00:00 Test Item Value Reference Range Interpretation Comments CHLAMYDIA, AMPLIFIED (test code = NEGATIVE 33676) CHLAMYDIA, AMPLIFIED, [id number] 00:00:00 Test Item Value Reference Range Interpretation Comments CHLAMYDIA, AMPLIFIED (test code = NEGATIVE 12828) GC, AMPLIFIED, [id number] 00:00:00 Test Item Value Reference Range Interpretation Comments GONORRHEA, AMPLIFIED (test code = NEGATIVE 50766) GC, AMPLIFIED, [id number] 00:00:00 Test Item Value Reference Range Interpretation Comments GONORRHEA, AMPLIFIED (test code = NEGATIVE 05572) HIV AB/AG COMBO RFLX [id number] 00:00:00 Test Item Value Reference Range Interpretation Comments HIV AB/AG COMBO RFLX CONF (test NON-REACTIVE code = 3514) HIV AB/AG COMBO RFLX [id number] 00:00:00 Test Item Value Reference Range Interpretation Comments HIV AB/AG COMBO RFLX CONF (test NON-REACTIVE code = 3514) [id number] 00:00:00 Test Item Value Reference Range Interpretation Comments RPR RESULT (test code = NON-REACTIVE 3501) RPR TITER (test code = 3500) NOT INDIC. TITER [id number] 00:00:00 Test Item Value Reference Range Interpretation Comments RPR RESULT (test code = NON-REACTIVE 3501) RPR TITER (test code = 3500) NOT INDIC. TITER [id number] 00:00:00 Test Item Value Reference Range Interpretation [...] INTERPRETATION HEPATITIS B: (NOTE) (test code = 78573) INTERPRETATION HEPATITIS C: (NOTE) (test code = 40055) HEPATITIS PROFILE (A,B,C)2015-06-24 00:00:00 Test Item Value [...] INTERPRETATION HEPATITIS B: (NOTE) (test code = 11522) INTERPRETATION HEPATITIS C: (NOTE) (test code = 11652) COMPREHENSIVE METABOLIC [id number] 00:00:00 Test Item Value Reference Range Interpretation Comments GLUCOSE (test code = 2217) 105 MG/DL BUN (test code = 2208) 11 MG/DL CREATININE (test code = 2214) 0.80 MG/DL eGFR AMER. (test code 109 ML/MIN/1.73 = 45968) eGFR NON- AMER. (test 94 ML/MIN/1.73 code = 83578) CALCULATED BUN/CREAT (test 14 RATIO code = [...] code = 2219) 14 U/L COMPREHENSIVE METABOLIC [id number] 00:00:00 Test Item Value Reference Range Interpretation Comments GLUCOSE (test code = 2217) 105 MG/DL BUN (test code = 2208) 11 MG/DL CREATININE (test code = 2214) 0.80 MG/DL eGFR AMER. (test code 109 ML/MIN/1.73 = 40624) eGFR NON- AMER. (test 94 ML/MIN/1.73 code = 48271) CALCULATED BUN/CREAT (test 14 RATIO code = [...] (test code = 2219) 14 U/L LIPID [id number] 00:00:00 Test Item Value Reference Range Interpretation Comments CHOLESTEROL (test code = 2210) 211 MG/DL TRIGLYCERIDES (test code = 2232) 209 MG/DL HDL CHOLESTEROL (test code = 2220) 38 MG/DL CALCULATED LDL CHOL (test code = 131 MG/DL 2236) RISK RATIO LDL/HDL (test code = 3.45 RATIO 8) LIPID [id number] 00:00:00 Test Item Value Reference Range Interpretation Comments CHOLESTEROL (test code = 2210) 211 MG/DL TRIGLYCERIDES (test code = 2232) 209 MG/DL HDL CHOLESTEROL (test code = 2220) 38 MG/DL CALCULATED LDL CHOL (test code = 131 MG/DL 2237) RISK RATIO LDL/HDL (test code = 3.45 RATIO 2238) CBC W/AUTO [id number] 00:00:00 Test Item Value Reference Range Interpretation [...] code = 1015) 254 K/UL CBC W/AUTO [id number] 00:00:00 Test Item Value Reference Range Interpretation [...] code = 1015) 254 K/UL CBC W/AUTO [id number] 00:00:00 Test Item Value Reference Range Interpretation [...] (test code = 1015) 254 K/UL HEMOGLOBIN [id number] 00:00:00 Test Item Value Reference Range Interpretation Comments HEMOGLOBIN A1c (test code = 05329) 6.9 % HEMOGLOBIN [id number] 00:00:00 Test Item Value Reference Range Interpretation Comments HEMOGLOBIN A1c (test code = 63963) 6.9 % HEMOGLOBIN [id number] 00:00:00 Test Item Value Reference Range Interpretation Comments HEMOGLOBIN A1c (test code = 27263) 6.9 % [id number] 00:00:00 Test Item Value Reference Range Interpretation Comments TSH (test code = 2821) 0.5 UIU/ML [id number] 00:00:00 Test Item Value Reference Range Interpretation Comments TSH (test code = 2821) 0.5 UIU/ML [id number] 00:00:00 Test Item Value Reference Range Interpretation Comments TSH (test code = 2821) 0.5 UIU/ML HEPATITIS A IgM [REFLEX]2015-06-24 00:00:00 Test Item Value Reference Range Interpretation Comments HEPATITIS A IgM (test code = NON-REACTIVE 1108) CHLAMYDIA, AMPLIFIED, [id number] 00:00:00 Test Item Value Reference Range Interpretation Comments CHLAMYDIA, AMPLIFIED (test code = NEGATIVE 14436) GC, AMPLIFIED, [id number] 00:00:00 Test Item Value Reference Range Interpretation Comments GONORRHEA, AMPLIFIED (test code = NEGATIVE 11094) HIV AB/AG COMBO RFLX [id number] 00:00:00 Test Item Value Reference Range Interpretation Comments HIV AB/AG COMBO RFLX CONF (test NON-REACTIVE code = 3514) [id number] 00:00:00 Test Item Value Reference Range Interpretation Comments RPR RESULT (test code = NON-REACTIVE 3501) RPR TITER (test code = 3500) NOT INDIC. TITER CHLAMYDIA, AMPLIFIED, [id number] 00:00:00 Test Item Value Reference Range Interpretation Comments CHLAMYDIA, AMPLIFIED (test code = NEGATIVE 71209) [id number] 00:00:00 Test Item Value Reference Range Interpretation Comments RPR RESULT (test code = NON-REACTIVE 3501) RPR TITER (test code = 3500) NOT INDIC. TITER CHLAMYDIA, AMPLIFIED, [id number] 00:00:00 Test Item Value Reference Range Interpretation Comments CHLAMYDIA, AMPLIFIED (test code = NEGATIVE 98683) GC, AMPLIFIED, [id number] 00:00:00 Test Item Value Reference Range Interpretation Comments GONORRHEA, AMPLIFIED (test code = NEGATIVE 36178) GC, AMPLIFIED, [id number] 00:00:00 Test Item Value Reference Range Interpretation Comments GONORRHEA, AMPLIFIED (test code = NEGATIVE 05816) HIV AB/AG COMBO RFLX [id number] 00:00:00 Test Item Value Reference Range Interpretation Comments HIV AB/AG COMBO RFLX CONF (test NON-REACTIVE code = 3514) HIV AB/AG COMBO RFLX [id number] 00:00:00 Test Item Value Reference Range Interpretation Comments HIV AB/AG COMBO RFLX CONF (test NON-REACTIVE code = 3514) [id number] 00:00:00 Test Item Value Reference Range Interpretation Comments RPR RESULT (test code = NON-REACTIVE 3501) RPR TITER (test code = 3500) NOT INDIC. TITER [id number] 00:00:00 Test Item Value Reference Range Interpretation Comments RPR RESULT (test code = NON-REACTIVE 3501) RPR TITER (test code = 3500) NOT INDIC. TITER [id number] 00:00:00 Test Item Value Reference Range Interpretation [...] INTERPRETATION HEPATITIS B: (NOTE) (test code = 48419) INTERPRETATION HEPATITIS C: (NOTE) (test code = 81545) HEPATITIS PROFILE (A,B,C)2015-06-24 00:00:00 Test Item Value [...] INTERPRETATION HEPATITIS B: (NOTE) (test code = 81862) INTERPRETATION HEPATITIS C: (NOTE) (test code = 20374) HEPATITIS PROFILE (A,B,C)2015-06-24 00:00:00 Test Item Value [...] INTERPRETATION HEPATITIS B: (NOTE) (test code = 92728) INTERPRETATION HEPATITIS C: (NOTE) (test code = 41997) COMPREHENSIVE METABOLIC [id number] 00:00:00 Test Item Value Reference Range Interpretation Comments GLUCOSE (test code = 2217) 105 MG/DL BUN (test code = 2208) 11 MG/DL CREATININE (test code = 2214) 0.80 MG/DL eGFR AMER. (test code 109 ML/MIN/1.73 = 96360) eGFR NON- AMER. (test 94 ML/MIN/1.73 code = 09590) CALCULATED BUN/CREAT (test 14 RATIO code = [...] code = 2219) 14 U/L COMPREHENSIVE METABOLIC [id number] 00:00:00 Test Item Value Reference Range Interpretation Comments GLUCOSE (test code = 2217) 105 MG/DL BUN (test code = 2208) 11 MG/DL CREATININE (test code = 2214) 0.80 MG/DL eGFR AMER. (test code 109 ML/MIN/1.73 = 29454) eGFR NON- AMER. (test 94 ML/MIN/1.73 code = 37802) CALCULATED BUN/CREAT (test 14 RATIO code = [...] (test code = 2219) 14 U/L LIPID [id number] 00:00:00 Test Item Value Reference Range Interpretation Comments CHOLESTEROL (test code = 2210) 211 MG/DL TRIGLYCERIDES (test code = 2232) 209 MG/DL HDL CHOLESTEROL (test code = 2220) 38 MG/DL CALCULATED LDL CHOL (test code = 131 MG/DL 2237) RISK RATIO LDL/HDL (test code = 3.45 RATIO 2238) LIPID [id number] 00:00:00 Test Item Value Reference Range Interpretation Comments CHOLESTEROL (test code = 2210) 211 MG/DL TRIGLYCERIDES (test code = 2232) 209 MG/DL HDL CHOLESTEROL (test code = 2220) 38 MG/DL CALCULATED LDL CHOL (test code = 131 MG/DL 2237) RISK RATIO LDL/HDL (test code = 3.45 RATIO 2238) CBC W/AUTO [id number] 00:00:00 Test Item Value Reference Range Interpretation [...] code = 1015) 254 K/UL CBC W/AUTO [id number] 00:00:00 Test Item Value Reference Range Interpretation [...] code = 1015) 254 K/UL CBC W/AUTO [id number] 00:00:00 Test Item Value Reference Range Interpretation [...] (test code = 1015) 254 K/UL HEMOGLOBIN [id number] 00:00:00 Test Item Value Reference Range Interpretation Comments HEMOGLOBIN A1c (test code = 12382) 6.9 % HEMOGLOBIN [id number] 00:00:00 Test Item Value Reference Range Interpretation Comments HEMOGLOBIN A1c (test code = 35742) 6.9 % HEMOGLOBIN [id number] 00:00:00 Test Item Value Reference Range Interpretation Comments HEMOGLOBIN A1c (test code = 50942) 6.9 % [id number] 00:00:00 Test Item Value Reference Range Interpretation Comments TSH (test code = 2821) 0.5 UIU/ML [id number] 00:00:00 Test Item Value Reference Range Interpretation Comments TSH (test code = 2821) 0.5 UIU/ML [id number] 00:00:00 Test Item Value Reference Range Interpretation Comments TSH (test code = 2821) 0.5 UIU/ML HEPATITIS A IgM [REFLEX]2015-06-24 00:00:00 Test Item Value Reference Range Interpretation Comments HEPATITIS A IgM (test code = NON-REACTIVE 3713) COMPREHENSIVE METABOLIC [id number] 00:00:00 Test Item Value Reference Range Interpretation Comments GLUCOSE (test code = 2217) 105 MG/DL BUN (test code = 2208) 11 MG/DL CREATININE (test code = 2214) 0.80 MG/DL eGFR AMER. (test code 109 ML/MIN/1.73 = 35875) eGFR NON- AMER. (test 94 ML/MIN/1.73 code = 63868) CALCULATED BUN/CREAT (test 14 RATIO code = [...] (test code = 2219) 14 U/L LIPID [id number] 00:00:00 Test Item Value Reference Range Interpretation Comments CHOLESTEROL (test code = 2210) 211 MG/DL TRIGLYCERIDES (test code = 2232) 209 MG/DL HDL CHOLESTEROL (test code = 2220) 38 MG/DL CALCULATED LDL CHOL (test code = 131 MG/DL 2236) RISK RATIO LDL/HDL (test code = 3.45 RATIO 8) CBC W/AUTO [id number] 00:00:00 Test Item Value Reference Range Interpretation [...] code = 1015) 254 K/UL CBC W/AUTO [id number] 00:00:00 Test Item Value Reference Range Interpretation [...] (test code = 1015) 254 K/UL HEMOGLOBIN [id number] 00:00:00 Test Item Value Reference Range Interpretation Comments HEMOGLOBIN A1c (test code = 61113) 6.9 % HEMOGLOBIN [id number] 00:00:00 Test Item Value Reference Range Interpretation Comments HEMOGLOBIN A1c (test code = 59728) 6.9 % [id number] 00:00:00 Test Item Value Reference Range Interpretation Comments TSH (test code = 2821) 0.5 UIU/ML [id number] 00:00:00 Test Item Value Reference Range Interpretation Comments TSH (test code = 2821) 0.5 UIU/ML HEPATITIS A IgM [REFLEX]2015-06-24 00:00:00 Test Item Value Reference Range Interpretation Comments HEPATITIS A IgM (test code = NON-REACTIVE 8238) CHLAMYDIA, AMPLIFIED, [id number] 00:00:00 Test Item Value Reference Range Interpretation Comments CHLAMYDIA, AMPLIFIED (test code = NEGATIVE 44417) CHLAMYDIA, AMPLIFIED, [id number] 00:00:00 Test Item Value Reference Range Interpretation Comments CHLAMYDIA, AMPLIFIED (test code = NEGATIVE 27172) GC, AMPLIFIED, [id number] 00:00:00 Test Item Value Reference Range Interpretation Comments GONORRHEA, AMPLIFIED (test code = NEGATIVE 83674) GC, AMPLIFIED, [id number] 00:00:00 Test Item Value Reference Range Interpretation Comments GONORRHEA, AMPLIFIED (test code = NEGATIVE 46051) HIV AB/AG COMBO RFLX [id number] 00:00:00 Test Item Value Reference Range Interpretation Comments HIV AB/AG COMBO RFLX CONF (test NON-REACTIVE code = 3514) HIV AB/AG COMBO RFLX [id number] 00:00:00 Test Item Value Reference Range Interpretation Comments HIV AB/AG COMBO RFLX CONF (test NON-REACTIVE code = 3514) [id number] 00:00:00 Test Item Value Reference Range Interpretation Comments RPR RESULT (test code = NON-REACTIVE 3501) RPR TITER (test code = 3500) NOT INDIC. TITER [id number] 00:00:00 Test Item Value Reference Range Interpretation Comments RPR RESULT (test code = NON-REACTIVE 3501) RPR TITER (test code = 3500) NOT INDIC. TITER [id number] 00:00:00 Test Item Value Reference Range Interpretation [...] INTERPRETATION HEPATITIS B: (NOTE) (test code = 73736) INTERPRETATION HEPATITIS C: (NOTE) (test code = 79452) HEPATITIS PROFILE (A,B,C)2015-06-24 00:00:00 Test Item Value [...] INTERPRETATION HEPATITIS B: (NOTE) (test code = 85859) INTERPRETATION HEPATITIS C: (NOTE) (test code = 90992) COMPREHENSIVE METABOLIC [id number] 00:00:00 Test Item Value Reference Range Interpretation Comments GLUCOSE (test code = 2217) 105 MG/DL BUN (test code = 2208) 11 MG/DL CREATININE (test code = 2214) 0.80 MG/DL eGFR AMER. (test code 109 ML/MIN/1.73 = 63196) eGFR NON- AMER. (test 94 ML/MIN/1.73 code = 81245) CALCULATED BUN/CREAT (test 14 RATIO code = [...] code = 2219) 14 U/L COMPREHENSIVE METABOLIC [id number] 00:00:00 Test Item Value Reference Range Interpretation Comments GLUCOSE (test code = 2217) 105 MG/DL BUN (test code = 2208) 11 MG/DL CREATININE (test code = 2214) 0.80 MG/DL eGFR AMER. (test code 109 ML/MIN/1.73 = 95956) eGFR NON- AMER. (test 94 ML/MIN/1.73 code = 48020) CALCULATED BUN/CREAT (test 14 RATIO code = [...] (test code = 2219) 14 U/L LIPID [id number] 00:00:00 Test Item Value Reference Range Interpretation Comments CHOLESTEROL (test code = 2210) 211 MG/DL TRIGLYCERIDES (test code = 2232) 209 MG/DL HDL CHOLESTEROL (test code = 2220) 38 MG/DL CALCULATED LDL CHOL (test code = 131 MG/DL 2237) RISK RATIO LDL/HDL (test code = 3.45 RATIO 2238) LIPID [id number] 00:00:00 Test Item Value Reference Range Interpretation Comments CHOLESTEROL (test code = 2210) 211 MG/DL TRIGLYCERIDES (test code = 2232) 209 MG/DL HDL CHOLESTEROL (test code = 2220) 38 MG/DL CALCULATED LDL CHOL (test code = 131 MG/DL 2237) RISK RATIO LDL/HDL (test code = 3.45 RATIO 2238) CBC W/AUTO [id number] 00:00:00 Test Item Value Reference Range Interpretation [...] code = 1015) 254 K/UL CBC W/AUTO [id number] 00:00:00 Test Item Value Reference Range Interpretation [...] code = 1015) 254 K/UL CBC W/AUTO [id number] 00:00:00 Test Item Value Reference Range Interpretation [...] (test code = 1015) 254 K/UL HEMOGLOBIN [id number] 00:00:00 Test Item Value Reference Range Interpretation Comments HEMOGLOBIN A1c (test code = 22288) 6.9 % HEMOGLOBIN [id number] 00:00:00 Test Item Value Reference Range Interpretation Comments HEMOGLOBIN A1c (test code = 98241) 6.9 % HEMOGLOBIN [id number] 00:00:00 Test Item Value Reference Range Interpretation Comments HEMOGLOBIN A1c (test code = 38490) 6.9 % [id number] 00:00:00 Test Item Value Reference Range Interpretation Comments TSH (test code = 2821) 0.5 UIU/ML [id number] 00:00:00 Test Item Value Reference Range Interpretation Comments TSH (test code = 2821) 0.5 UIU/ML [id number] 00:00:00 Test Item Value Reference Range Interpretation Comments TSH (test code = 2821) 0.5 UIU/ML HEPATITIS A IgM [REFLEX]2015-06-24 00:00:00 Test Item Value Reference Range Interpretation Comments HEPATITIS A IgM (test code = NON-REACTIVE 2728) CHLAMYDIA, AMPLIFIED, [id number] 00:00:00 Test Item Value Reference Range Interpretation Comments CHLAMYDIA, AMPLIFIED (test code = NEGATIVE 47039) CHLAMYDIA, AMPLIFIED, [id number] 00:00:00 Test Item Value Reference Range Interpretation Comments CHLAMYDIA, AMPLIFIED (test code = NEGATIVE 87816) GC, AMPLIFIED, [id number] 00:00:00 Test Item Value Reference Range Interpretation Comments GONORRHEA, AMPLIFIED (test code = NEGATIVE 77467) GC, AMPLIFIED, [id number] 00:00:00 Test Item Value Reference Range Interpretation Comments GONORRHEA, AMPLIFIED (test code = NEGATIVE 83249) HIV AB/AG COMBO RFLX [id number] 00:00:00 Test Item Value Reference Range Interpretation Comments HIV AB/AG COMBO RFLX CONF (test NON-REACTIVE code = 3514) HIV AB/AG COMBO RFLX [id number] 00:00:00 Test Item Value Reference Range Interpretation Comments HIV AB/AG COMBO RFLX CONF (test NON-REACTIVE code = 3514) [id number] 00:00:00 Test Item Value Reference Range Interpretation Comments RPR RESULT (test code = NON-REACTIVE 3501) RPR TITER (test code = 3500) NOT INDIC. TITER [id number] 00:00:00 Test Item Value Reference Range Interpretation Comments RPR RESULT (test code = NON-REACTIVE 3501) RPR TITER (test code = 3500) NOT INDIC. TITER [id number] 00:00:00 Test Item Value Reference Range Interpretation [...] INTERPRETATION HEPATITIS B: (NOTE) (test code = 85368) INTERPRETATION HEPATITIS C: (NOTE) (test code = 42988) HEPATITIS PROFILE (A,B,C)2015-06-24 00:00:00 Test Item Value [...] INTERPRETATION HEPATITIS B: (NOTE) (test code = 33514) INTERPRETATION HEPATITIS C: (NOTE) (test code = 06743) COMPREHENSIVE METABOLIC [id number] 00:00:00 Test Item Value Reference Range Interpretation Comments GLUCOSE (test code = 2217) 105 MG/DL BUN (test code = 2208) 11 MG/DL CREATININE (test code = 2214) 0.80 MG/DL eGFR AMER. (test code 109 ML/MIN/1.73 = 16267) eGFR NON- AMER. (test 94 ML/MIN/1.73 code = 32467) CALCULATED BUN/CREAT (test 14 RATIO code = [...] code = 2219) 14 U/L COMPREHENSIVE METABOLIC [id number] 00:00:00 Test Item Value Reference Range Interpretation Comments GLUCOSE (test code = 2217) 105 MG/DL BUN (test code = 2208) 11 MG/DL CREATININE (test code = 2214) 0.80 MG/DL eGFR AMER. (test code 109 ML/MIN/1.73 = 81832) eGFR NON- AMER. (test 94 ML/MIN/1.73 code = 35109) CALCULATED BUN/CREAT (test 14 RATIO code = [...] (test code = 2219) 14 U/L LIPID [id number] 00:00:00 Test Item Value Reference Range Interpretation Comments CHOLESTEROL (test code = 2210) 211 MG/DL TRIGLYCERIDES (test code = 2232) 209 MG/DL HDL CHOLESTEROL (test code = 2220) 38 MG/DL CALCULATED LDL CHOL (test code = 131 MG/DL 2236) RISK RATIO LDL/HDL (test code = 3.45 RATIO 2238) LIPID [id number] 00:00:00 Test Item Value Reference Range Interpretation Comments CHOLESTEROL (test code = 2210) 211 MG/DL TRIGLYCERIDES (test code = 2232) 209 MG/DL HDL CHOLESTEROL (test code = 2220) 38 MG/DL CALCULATED LDL CHOL (test code = 131 MG/DL 2236) RISK RATIO LDL/HDL (test code = 3.45 RATIO 8) CBC W/AUTO [id number] 00:00:00 Test Item Value Reference Range Interpretation [...] code = 1015) 254 K/UL CBC W/AUTO [id number] 00:00:00 Test Item Value Reference Range Interpretation [...] code = 1015) 254 K/UL CBC W/AUTO [id number] 00:00:00 Test Item Value Reference Range Interpretation [...] (test code = 1015) 254 K/UL HEMOGLOBIN [id number] 00:00:00 Test Item Value Reference Range Interpretation Comments HEMOGLOBIN A1c (test code = 37474) 6.9 % HEMOGLOBIN [id number] 00:00:00 Test Item Value Reference Range Interpretation Comments HEMOGLOBIN A1c (test code = 58687) 6.9 % HEMOGLOBIN [id number] 00:00:00 Test Item Value Reference Range Interpretation Comments HEMOGLOBIN A1c (test code = 89582) 6.9 % [id number] 00:00:00 Test Item Value Reference Range Interpretation Comments TSH (test code = 2821) 0.5 UIU/ML [id number] 00:00:00 Test Item Value Reference Range Interpretation Comments TSH (test code = 2821) 0.5 UIU/ML [id number] 00:00:00 Test Item Value Reference Range Interpretation Comments TSH (test code = 2821) 0.5 UIU/ML HEPATITIS A IgM [REFLEX]2015-06-24 00:00:00 Test Item Value Reference Range Interpretation Comments HEPATITIS A IgM (test code = NON-REACTIVE 2778) COMPREHENSIVE METABOLIC [id number] 00:00:00 Test Item Value Reference Range Interpretation Comments GLUCOSE (test code = 2217) 113 MG/DL BUN (test code = 2208) 22 MG/DL CREATININE (test code = 2214) 0.9 MG/DL eGFR AMER. (test code 85 ML/MIN/1.73 = 14352) eGFR NON- AMER. (test 70 ML/MIN/1.73 code = 27129) CALCULATED BUN/CREAT (test 24 RATIO code = [...] code = 2219) 24 U/L COMPREHENSIVE METABOLIC [id number] 00:00:00 Test Item Value Reference Range Interpretation Comments GLUCOSE (test code = 2217) 113 MG/DL BUN (test code = 2208) 22 MG/DL CREATININE (test code = 2214) 0.9 MG/DL eGFR AMER. (test code 85 ML/MIN/1.73 = 86298) eGFR NON- AMER. (test 70 ML/MIN/1.73 code = 53789) CALCULATED BUN/CREAT (test 24 RATIO code = [...] code = 2219) 24 U/L CBC W/AUTO [id number] 00:00:00 Test Item Value Reference Range Interpretation [...] code = 1015) 270 K/UL CBC W/AUTO [id number] 00:00:00 Test Item Value Reference Range Interpretation [...] code = 1015) 270 K/UL CBC W/AUTO [id number] 00:00:00 Test Item Value Reference Range Interpretation [...] (test code = 1015) 270 K/UL HEMOGLOBIN [id number] 00:00:00 Test Item Value Reference Range Interpretation Comments HEMOGLOBIN A1c (test code = 47352) 7.3 % HEMOGLOBIN [id number] 00:00:00 Test Item Value Reference Range Interpretation Comments HEMOGLOBIN A1c (test code = 92701) 7.3 % HEMOGLOBIN [id number] 00:00:00 Test Item Value Reference Range Interpretation Comments HEMOGLOBIN A1c (test code = 58107) 7.3 % COMPREHENSIVE METABOLIC [id number] 00:00:00 Test Item Value Reference Range Interpretation Comments GLUCOSE (test code = 2217) 113 MG/DL BUN (test code = 2208) 22 MG/DL CREATININE (test code = 2214) 0.9 MG/DL eGFR AMER. (test code 85 ML/MIN/1.73 = 27193) eGFR NON- AMER. (test 70 ML/MIN/1.73 code = 98606) CALCULATED BUN/CREAT (test 24 RATIO code = [...] code = 2219) 24 U/L COMPREHENSIVE METABOLIC [id number] 00:00:00 Test Item Value Reference Range Interpretation Comments GLUCOSE (test code = 2217) 113 MG/DL BUN (test code = 2208) 22 MG/DL CREATININE (test code = 2214) 0.9 MG/DL eGFR AMER. (test code 85 ML/MIN/1.73 = 29881) eGFR NON- AMER. (test 70 ML/MIN/1.73 code = 21845) CALCULATED BUN/CREAT (test 24 RATIO code = [...] code = 2219) 24 U/L CBC W/AUTO [id number] 00:00:00 Test Item Value Reference Range Interpretation [...] code = 1015) 270 K/UL CBC W/AUTO [id number] 00:00:00 Test Item Value Reference Range Interpretation [...] code = 1015) 270 K/UL CBC W/AUTO [id number] 00:00:00 Test Item Value Reference Range Interpretation [...] (test code = 1015) 270 K/UL HEMOGLOBIN [id number] 00:00:00 Test Item Value Reference Range Interpretation Comments HEMOGLOBIN A1c (test code = 60827) 7.3 % HEMOGLOBIN [id number] 00:00:00 Test Item Value Reference Range Interpretation Comments HEMOGLOBIN A1c (test code = 03447) 7.3 % HEMOGLOBIN [id number] 00:00:00 Test Item Value Reference Range Interpretation Comments HEMOGLOBIN A1c (test code = 24818) 7.3 % COMPREHENSIVE METABOLIC [id number] 00:00:00 Test Item Value Reference Range Interpretation Comments GLUCOSE (test code = 2217) 113 MG/DL BUN (test code = 2208) 22 MG/DL CREATININE (test code = 2214) 0.9 MG/DL eGFR AMER. (test code 85 ML/MIN/1.73 = 80164) eGFR NON- AMER. (test 70 ML/MIN/1.73 code = 13063) CALCULATED BUN/CREAT (test 24 RATIO code = [...] code = 2219) 24 U/L COMPREHENSIVE METABOLIC [id number] 00:00:00 Test Item Value Reference Range Interpretation Comments GLUCOSE (test code = 2217) 113 MG/DL BUN (test code = 2208) 22 MG/DL CREATININE (test code = 2214) 0.9 MG/DL eGFR AMER. (test code 85 ML/MIN/1.73 = 10407) eGFR NON- AMER. (test 70 ML/MIN/1.73 code = 56318) CALCULATED BUN/CREAT (test 24 RATIO code = [...] code = 2219) 24 U/L CBC W/AUTO [id number] 00:00:00 Test Item Value Reference Range Interpretation [...] code = 1015) 270 K/UL CBC W/AUTO [id number] 00:00:00 Test Item Value Reference Range Interpretation [...] code = 1015) 270 K/UL CBC W/AUTO [id number] 00:00:00 Test Item Value Reference Range Interpretation [...] (test code = 1015) 270 K/UL HEMOGLOBIN [id number] 00:00:00 Test Item Value Reference Range Interpretation Comments HEMOGLOBIN A1c (test code = 07240) 7.3 % HEMOGLOBIN [id number] 00:00:00 Test Item Value Reference Range Interpretation Comments HEMOGLOBIN A1c (test code = 98083) 7.3 % HEMOGLOBIN [id number] 00:00:00 Test Item Value Reference Range Interpretation Comments HEMOGLOBIN A1c (test code = 60428) 7.3 % COMPREHENSIVE METABOLIC [id number] 00:00:00 Test Item Value Reference Range Interpretation Comments GLUCOSE (test code = 2217) 113 MG/DL BUN (test code = 2208) 22 MG/DL CREATININE (test code = 2214) 0.9 MG/DL eGFR AMER. (test code 85 ML/MIN/1.73 = 67798) eGFR NON- AMER. (test 70 ML/MIN/1.73 code = 36436) CALCULATED BUN/CREAT (test 24 RATIO code = [...] code = 2219) 24 U/L COMPREHENSIVE METABOLIC [id number] 00:00:00 Test Item Value Reference Range Interpretation Comments GLUCOSE (test code = 2217) 113 MG/DL BUN (test code = 2208) 22 MG/DL CREATININE (test code = 2214) 0.9 MG/DL eGFR AMER. (test code 85 ML/MIN/1.73 = 26705) eGFR NON- AMER. (test 70 ML/MIN/1.73 code = 07588) CALCULATED BUN/CREAT (test 24 RATIO code = [...] code = 2219) 24 U/L CBC W/AUTO [id number] 00:00:00 Test Item Value Reference Range Interpretation [...] code = 1015) 270 K/UL CBC W/AUTO [id number] 00:00:00 Test Item Value Reference Range Interpretation [...] code = 1015) 270 K/UL CBC W/AUTO [id number] 00:00:00 Test Item Value Reference Range Interpretation [...] (test code = 1015) 270 K/UL HEMOGLOBIN [id number] 00:00:00 Test Item Value Reference Range Interpretation Comments HEMOGLOBIN A1c (test code = 43112) 7.3 % HEMOGLOBIN [id number] 00:00:00 Test Item Value Reference Range Interpretation Comments HEMOGLOBIN A1c (test code = 07071) 7.3 % HEMOGLOBIN [id number] 00:00:00 Test Item Value Reference Range Interpretation Comments HEMOGLOBIN A1c (test code = 44842) 7.3 % COMPREHENSIVE METABOLIC [id number] 00:00:00 Test Item Value Reference Range Interpretation Comments GLUCOSE (test code = 2217) 113 MG/DL BUN (test code = 2208) 22 MG/DL CREATININE (test code = 2214) 0.9 MG/DL eGFR AMER. (test code 85 ML/MIN/1.73 = 14271) eGFR NON- AMER. (test 70 ML/MIN/1.73 code = 68932) CALCULATED BUN/CREAT (test 24 RATIO code = [...] code = 2219) 24 U/L COMPREHENSIVE METABOLIC [id number] 00:00:00 Test Item Value Reference Range Interpretation Comments GLUCOSE (test code = 2217) 113 MG/DL BUN (test code = 2208) 22 MG/DL CREATININE (test code = 2214) 0.9 MG/DL eGFR AMER. (test code 85 ML/MIN/1.73 = 23975) eGFR NON- AMER. (test 70 ML/MIN/1.73 code = 96333) CALCULATED BUN/CREAT (test 24 RATIO code = [...] code = 2219) 24 U/L CBC W/AUTO [id number] 00:00:00 Test Item Value Reference Range Interpretation [...] code = 1015) 270 K/UL CBC W/AUTO [id number] 00:00:00 Test Item Value Reference Range Interpretation [...] code = 1015) 270 K/UL CBC W/AUTO [id number] 00:00:00 Test Item Value Reference Range Interpretation [...] (test code = 1015) 270 K/UL HEMOGLOBIN [id number] 00:00:00 Test Item Value Reference Range Interpretation Comments HEMOGLOBIN A1c (test code = 88947) 7.3 % HEMOGLOBIN [id number] 00:00:00 Test Item Value Reference Range Interpretation Comments HEMOGLOBIN A1c (test code = 66170) 7.3 % HEMOGLOBIN [id number] 00:00:00 Test Item Value Reference Range Interpretation Comments HEMOGLOBIN A1c (test code = 76289) 7.3 % COMPREHENSIVE METABOLIC [id number] 00:00:00 Test Item Value Reference Range Interpretation Comments GLUCOSE (test code = 2217) 113 MG/DL BUN (test code = 2208) 22 MG/DL CREATININE (test code = 2214) 0.9 MG/DL eGFR AMER. (test code 85 ML/MIN/1.73 = 69916) eGFR NON- AMER. (test 70 ML/MIN/1.73 code = 45601) CALCULATED BUN/CREAT (test 24 RATIO code = [...] code = 2219) 24 U/L COMPREHENSIVE METABOLIC [id number] 00:00:00 Test Item Value Reference Range Interpretation Comments GLUCOSE (test code = 2217) 113 MG/DL BUN (test code = 2208) 22 MG/DL CREATININE (test code = 2214) 0.9 MG/DL eGFR AMER. (test code 85 ML/MIN/1.73 = 74835) eGFR NON- AMER. (test 70 ML/MIN/1.73 code = 85414) CALCULATED BUN/CREAT (test 24 RATIO code = [...] code = 2219) 24 U/L CBC W/AUTO [id number] 00:00:00 Test Item Value Reference Range Interpretation [...] code = 1015) 270 K/UL CBC W/AUTO [id number] 00:00:00 Test Item Value Reference Range Interpretation [...] code = 1015) 270 K/UL CBC W/AUTO [id number] 00:00:00 Test Item Value Reference Range Interpretation [...] (test code = 1015) 270 K/UL HEMOGLOBIN [id number] 00:00:00 Test Item Value Reference Range Interpretation Comments HEMOGLOBIN A1c (test code = 93641) 7.3 % HEMOGLOBIN [id number] 00:00:00 Test Item Value Reference Range Interpretation Comments HEMOGLOBIN A1c (test code = 13531) 7.3 % HEMOGLOBIN [id number] 00:00:00 Test Item Value Reference Range Interpretation Comments HEMOGLOBIN A1c (test code = 28329) 7.3 % COMPREHENSIVE METABOLIC [id number] 00:00:00 Test Item Value Reference Range Interpretation Comments GLUCOSE (test code = 2217) 113 MG/DL BUN (test code = 2208) 22 MG/DL CREATININE (test code = 2214) 0.9 MG/DL eGFR AMER. (test code 85 ML/MIN/1.73 = 89567) eGFR NON- AMER. (test 70 ML/MIN/1.73 code = 19990) CALCULATED BUN/CREAT (test 24 RATIO code = [...] code = 2219) 24 U/L COMPREHENSIVE METABOLIC [id number] 00:00:00 Test Item Value Reference Range Interpretation Comments GLUCOSE (test code = 2217) 113 MG/DL BUN (test code = 2208) 22 MG/DL CREATININE (test code = 2214) 0.9 MG/DL eGFR AMER. (test code 85 ML/MIN/1.73 = 68981) eGFR NON- AMER. (test 70 ML/MIN/1.73 code = 97097) CALCULATED BUN/CREAT (test 24 RATIO code = [...] code = 2219) 24 U/L CBC W/AUTO [id number] 00:00:00 Test Item Value Reference Range Interpretation [...] code = 1015) 270 K/UL CBC W/AUTO [id number] 00:00:00 Test Item Value Reference Range Interpretation [...] code = 1015) 270 K/UL CBC W/AUTO [id number] 00:00:00 Test Item Value Reference Range Interpretation [...] (test code = 1015) 270 K/UL HEMOGLOBIN [id number] 00:00:00 Test Item Value Reference Range Interpretation Comments HEMOGLOBIN A1c (test code = 25887) 7.3 % HEMOGLOBIN [id number] 00:00:00 Test Item Value Reference Range Interpretation Comments HEMOGLOBIN A1c (test code = 80593) 7.3 % HEMOGLOBIN [id number] 00:00:00 Test Item Value Reference Range Interpretation Comments HEMOGLOBIN A1c (test code = 89658) 7.3 % COMPREHENSIVE METABOLIC [id number] 00:00:00 Test Item Value Reference Range Interpretation Comments GLUCOSE (test code = 2217) 113 MG/DL BUN (test code = 2208) 22 MG/DL CREATININE (test code = 2214) 0.9 MG/DL eGFR AMER. (test code 85 ML/MIN/1.73 = 07920) eGFR NON- AMER. (test 70 ML/MIN/1.73 code = 69049) CALCULATED BUN/CREAT (test 24 RATIO code = [...] code = 2219) 24 U/L CBC W/AUTO [id number] 00:00:00 Test Item Value Reference Range Interpretation [...] code = 1015) 270 K/UL CBC W/AUTO [id number] 00:00:00 Test Item Value Reference Range Interpretation [...] (test code = 1015) 270 K/UL HEMOGLOBIN [id number] 00:00:00 Test Item Value Reference Range Interpretation Comments HEMOGLOBIN A1c (test code = 15036) 7.3 % HEMOGLOBIN [id number] 00:00:00 Test Item Value Reference Range Interpretation Comments HEMOGLOBIN A1c (test code = 88953) 7.3 % COMPREHENSIVE METABOLIC [id number] 00:00:00 Test Item Value Reference Range Interpretation Comments GLUCOSE (test code = 2217) 113 MG/DL BUN (test code = 2208) 22 MG/DL CREATININE (test code = 2214) 0.9 MG/DL eGFR AMER. (test code 85 ML/MIN/1.73 = 66149) eGFR NON- AMER. (test 70 ML/MIN/1.73 code = 27363) CALCULATED BUN/CREAT (test 24 RATIO code = [...] code = 2219) 24 U/L COMPREHENSIVE METABOLIC [id number] 00:00:00 Test Item Value Reference Range Interpretation Comments GLUCOSE (test code = 2217) 113 MG/DL BUN (test code = 2208) 22 MG/DL CREATININE (test code = 2214) 0.9 MG/DL eGFR AMER. (test code 85 ML/MIN/1.73 = 11867) eGFR NON- AMER. (test 70 ML/MIN/1.73 code = 11719) CALCULATED BUN/CREAT (test 24 RATIO code = [...] code = 2219) 24 U/L CBC W/AUTO [id number] 00:00:00 Test Item Value Reference Range Interpretation [...] code = 1015) 270 K/UL CBC W/AUTO [id number] 00:00:00 Test Item Value Reference Range Interpretation [...] code = 1015) 270 K/UL CBC W/AUTO [id number] 00:00:00 Test Item Value Reference Range Interpretation [...] (test code = 1015) 270 K/UL HEMOGLOBIN [id number] 00:00:00 Test Item Value Reference Range Interpretation Comments HEMOGLOBIN A1c (test code = 97164) 7.3 % HEMOGLOBIN [id number] 00:00:00 Test Item Value Reference Range Interpretation Comments HEMOGLOBIN A1c (test code = 61415) 7.3 % HEMOGLOBIN [id number] 00:00:00 Test Item Value Reference Range Interpretation Comments HEMOGLOBIN A1c (test code = 49431) 7.3 % COMPREHENSIVE METABOLIC [id number] 00:00:00 Test Item Value Reference Range Interpretation Comments GLUCOSE (test code = 2217) 113 MG/DL BUN (test code = 2208) 22 MG/DL CREATININE (test code = 2214) 0.9 MG/DL eGFR AMER. (test code 85 ML/MIN/1.73 = 46854) eGFR NON- AMER. (test 70 ML/MIN/1.73 code = 02839) CALCULATED BUN/CREAT (test 24 RATIO code = [...] code = 2219) 24 U/L COMPREHENSIVE METABOLIC [id number] 00:00:00 Test Item Value Reference Range Interpretation Comments GLUCOSE (test code = 2217) 113 MG/DL BUN (test code = 2208) 22 MG/DL CREATININE (test code = 2214) 0.9 MG/DL eGFR AMER. (test code 85 ML/MIN/1.73 = 75389) eGFR NON- AMER. (test 70 ML/MIN/1.73 code = 06842) CALCULATED BUN/CREAT (test 24 RATIO code = [...] code = 2219) 24 U/L CBC W/AUTO [id number] 00:00:00 Test Item Value Reference Range Interpretation [...] code = 1015) 270 K/UL CBC W/AUTO [id number] 00:00:00 Test Item Value Reference Range Interpretation [...] code = 1015) 270 K/UL CBC W/AUTO [id number] 00:00:00 Test Item Value Reference Range Interpretation [...] (test code = 1015) 270 K/UL HEMOGLOBIN [id number] 00:00:00 Test Item Value Reference Range Interpretation Comments HEMOGLOBIN A1c (test code = 27596) 7.3 % HEMOGLOBIN [id number] 00:00:00 Test Item Value Reference Range Interpretation Comments HEMOGLOBIN A1c (test code = 31009) 7.3 % HEMOGLOBIN [id number] 00:00:00 Test Item Value Reference Range Interpretation Comments HEMOGLOBIN A1c (test code = 93068) 7.3 % COMPREHENSIVE METABOLIC [id number] 00:00:00 Test Item Value Reference Range Interpretation Comments GLUCOSE (test code = 2217) 113 MG/DL BUN (test code = 2208) 22 MG/DL CREATININE (test code = 2214) 0.9 MG/DL eGFR AMER. (test code 85 ML/MIN/1.73 = 52777) eGFR NON- AMER. (test 70 ML/MIN/1.73 code = 58527) CALCULATED BUN/CREAT (test 24 RATIO code = [...] code = 2219) 24 U/L COMPREHENSIVE METABOLIC [id number] 00:00:00 Test Item Value Reference Range Interpretation Comments GLUCOSE (test code = 2217) 113 MG/DL BUN (test code = 2208) 22 MG/DL CREATININE (test code = 2214) 0.9 MG/DL eGFR AMER. (test code 85 ML/MIN/1.73 = 93786) eGFR NON- AMER. (test 70 ML/MIN/1.73 code = 36514) CALCULATED BUN/CREAT (test 24 RATIO code = [...] code = 2219) 24 U/L CBC W/AUTO [id number] 00:00:00 Test Item Value Reference Range Interpretation [...] code = 1015) 270 K/UL CBC W/AUTO [id number] 00:00:00 Test Item Value Reference Range Interpretation [...] code = 1015) 270 K/UL CBC W/AUTO [id number] 00:00:00 Test Item Value Reference Range Interpretation [...] (test code = 1015) 270 K/UL HEMOGLOBIN [id number] 00:00:00 Test Item Value Reference Range Interpretation Comments HEMOGLOBIN A1c (test code = 43348) 7.3 % HEMOGLOBIN [id number] 00:00:00 Test Item Value Reference Range Interpretation Comments HEMOGLOBIN A1c (test code = 99339) 7.3 % HEMOGLOBIN [id number] 00:00:00 Test Item Value Reference Range Interpretation Comments HEMOGLOBIN A1c (test code = 96192) 7.3 %"
--- NOTE | 2023-04-30 16:40 | ER ---
Nurse's Notes [facility] Name: Valentina Franco Age: 43 yrs Sex: Female : 1980 Arrival Date: 04/30/2023 Time: 15:06 Bed 11 Private MD: Yasmany Cook Diagnosis: Other malaise and fatigue Presentation: 04/30 15:19 Chief complaint: Headache and dizziness x 3 days. Reports SBP 80s yesterday. hb Coronavirus screen: At this time, the client does not indicate any symptoms associated with coronavirus-19. Ebola Screen: No symptoms or risks identified at this time. Initial Sepsis Screen: Does the patient meet any 2 criteria? No. Patient's initial sepsis screen is negative. Does the patient have a suspected source of infection? No. Patient's initial sepsis screen is negative. Risk Assessment: Do you want to hurt yourself or someone else? Patient reports no desire to harm self or others. Onset of symptoms was April 28, 2023. 15:19 Method Of Arrival: Ambulatory 15:19 Acuity: CYNTHIA 3 hb Triage Assessment: 15:46 General: Appears in no apparent distress. Behavior is calm, cooperative, appropriate ap3 for age, Reports fatigue for. Pain: Complains of pain in occipital area. Neuro: Level of Consciousness is awake, alert, obeys commands, Oriented to person, place, time, situation, Appropriate for age. Cardiovascular: Patient's skin is warm and dry. Respiratory: Airway is patent Respiratory effort is even, unlabored, Respiratory pattern is regular, symmetrical. 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 - Social history:: Smoking status: Patient denies any tobacco usage or history of. Screenin:46 [facility] ED Fall Risk Assessment (Adult) History of falling in the last 3 months, ap3 including since admission No falls in past 3 months (0 pts). Abuse screen: Denies threats or abuse. Nutritional screening: No deficits noted. Tuberculosis screening: No symptoms or risk factors identified. Vital Signs: 15:19 BP 111 / 79; Pulse 79; Resp 16; Temp 98.2; Weight 92.99 kg; Height 5 ft. 4 in. ; Pain hb 9/10; 16:20 BP 109 / 68 Supine; Pulse 80; ap3 16:25 BP 103 / 65 Sitting; Pulse 81; ap3 16:30 BP 101 / 61 Standing; Pulse 80; ap3 15:19 Body Mass Index 35.19 (92.99 kg, 162.56 cm) hb 15:19 Pain Scale: Adult hb ED Course: 15:08 Patient arrived in ED. mr 15:08 Yasmany Cook DO is Private Physician. mr 15:19 [facility]C [facility] snw 15:20 Doron Mueller MD is Attending Physician. snw 15:21 Triage completed. hb 15:21 Arm band placed on. hb 15:41 Urine W/Microscopic (UAM) Sent. ap3 15:41 SARS RAPID Sent. ap3 15:41 Flu Sent. ap3 15:46 Ashley Pace, RN is Primary Nurse. ap3 15:47 No provider procedures requiring assistance completed. ap3 16:38 Yasmany Cook DO is Referral Physician. snw 17:18 Patient has correct armband on for positive identification. Bed in low position. Call ap3 light in reach. Side rails up X 1. 17:18 Provided Education on: discharge instructions. ap3 17:18 Patient did not have IV access during this emergency room visit. ap3 Administered Medications: 17:04 Drug: Ketorolac IM 15 mg IM once Route: IM; Site: right deltoid; ap3 17:17 Follow up: Response: No adverse reaction; Pain is decreased ap3 17:04 Drug: Promethazine PO 25 mg PO once Route: PO; ap3 17:17 Follow up: Response: No adverse reaction; Pain is decreased ap3 Medication: 15:47 VIS not applicable for this client. ap3 Outcome: 16:39 Discharge ordered by . snw 17:18 Discharged to home ambulatory, ap3 17:18 Condition: good 17:18 Discharge instructions given to patient, Instructed on discharge instructions, follow up and referral plans. Demonstrated understanding of instructions, follow-up care, 17:19 Patient left the ED. ap3 Signatures: Nona Ashby, CAS-C KITCHEN ASSISTANT-Yvonnew Greta Cali, Reg Reg mr Amelia Louis, RN Ashley Marie RN RN ap3
--- NOTE | 2023-04-30 16:40 | EDPHYS ---
Physician Documentation [facility] Name: Valentina Franco Age: 43 yrs Sex: Female : 1980 Arrival Date: 04/30/2023 Time: 15:06 Bed 11 Private MD: Yasmany Cook ED Physician Doron Mueller HPI: 04/30 15:48 This 43 yrs old Female presents to ER via Ambulatory with complaints of Low BP.snw 15:48 Onset: The symptoms/episode began/occurred gradually. Associated signs and symptoms: snw Pertinent positives: headache, weakness, dizziness. The patient has experienced similar episodes in the past. The patient has been recently seen by a physician: the patient's primary care provider, Dr. Cook yesterday, with similar presenting complaints, appt for labs next week. 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 - Social history:: Smoking status: Patient denies any tobacco usage or history of. ROS: 15:45 Eyes: Negative for injury, pain, redness, and discharge, ENT: Negative for injury, snw pain, and discharge, Neck: Negative for injury, pain, and swelling, Cardiovascular: Negative for chest pain, palpitations, and edema, Respiratory: Negative for shortness of breath, cough, wheezing, and pleuritic chest pain, Abdomen/GI: Negative for abdominal pain, nausea, vomiting, diarrhea, and constipation, Back: Negative for injury and pain, : Negative for injury, bleeding, discharge, and swelling, MS/Extremity: Negative for injury and deformity, Skin: Negative for injury, rash, and discoloration, Psych: Negative for depression, anxiety, suicide ideation, homicidal ideation, and hallucinations, 15:45 Constitutional: Positive for fatigue, malaise, poor PO intake, weight loss, pt has had intentional 40# wt loss since February,:45 Neuro: Positive for dizziness, headache, of the forehead, right eye, right cheek, right ear, right scientologist and scalp, Exam: 15:45 Constitutional: This is a well developed, well nourished patient who is awake, alert, snw and in no acute distress. Head/Face: Normocephalic, atraumatic. Eyes: Pupils equal round and reactive to light, extra-ocular motions intact. Lids and lashes normal. Conjunctiva and sclera are non-icteric and not injected. Cornea within normal limits. Periorbital areas with no swelling, redness, or edema. ENT: Nares patent. No nasal discharge, no septal abnormalities noted. Tympanic membranes are normal and external auditory canals are clear. Oropharynx with no redness, swelling, or masses, exudates, or evidence of obstruction, uvula midline. Mucous membranes moist. Neck: Trachea midline, no thyromegaly or masses palpated, and no cervical lymphadenopathy. Supple, full range of motion without nuchal rigidity, or vertebral point tenderness. No Meningismus. Chest/axilla: Normal chest wall appearance and motion. Nontender with no deformity. No lesions are appreciated. Cardiovascular: Regular rate and rhythm with a normal S1 and S2. No gallops, murmurs, or rubs. Normal PMI, no JVD. No pulse deficits. Respiratory: Lungs have equal breath sounds bilaterally, clear to auscultation and percussion. No rales, rhonchi or wheezes noted. No increased work of breathing, no retractions or nasal flaring. Abdomen/GI: Soft, non-tender, with normal bowel sounds. No distension or tympany. No guarding or rebound. No evidence of tenderness throughout. Back: No spinal tenderness. No costovertebral tenderness. Full range of motion. Skin: Warm, dry with normal turgor. Normal color with no rashes, no lesions, and no evidence of cellulitis. MS/ Extremity: Pulses equal, no cyanosis. Neurovascular intact. Full, normal range of motion. Neuro: Awake and alert, GCS 15, oriented to person, place, time, and situation. Cranial nerves II-XII grossly intact. Motor strength 5/5 in all extremities. Sensory grossly intact. Cerebellar exam normal. Normal gait. Psych: Awake, alert, with orientation to person, place and time. Behavior, mood, and affect are within normal limits. Vital Signs: 15:19 BP 111 / 79; Pulse 79; Resp 16; Temp 98.2; Weight 92.99 kg; Height 5 ft. 4 in. ; Pain hb 9/10; 16:20 BP 109 / 68 Supine; Pulse 80; ap3 16:25 BP 103 / 65 Sitting; Pulse 81; ap3 16:30 BP 101 / 61 Standing; Pulse 80; ap3 15:19 Body Mass Index 35.19 (92.99 kg, 162.56 cm) hb 15:19 Pain Scale: Adult hb MDM: 15:20 Patient medically screened. snw 16:57 Differential diagnosis: viral Infection, bacterial infection, malaise. Data reviewed: snw vital signs, nurses notes, lab test result(s), Flu: negative urinalysis, glycosuria. I considered the following discharge prescriptions or medication management in the emergency department Medications were administered in the Emergency Department. See MAR. Care significantly affected by the following chronic conditions: Diabetes, Hypertension, Obesity, anxiety. Counseling: I had a detailed discussion with the patient and/or guardian regarding the historical points, exam findings, and any diagnostic results supporting the discharge/admit diagnosis, lab results, the need for outpatient follow up, for definitive care, to return to the emergency department if symptoms worsen or persist or if there are any questions or concerns that arise at home. Response to treatment: pt has had snacks, po intake, watching movie on cell, and napping.. Special discussion: Based on the history and exam findings, there is no indication for further emergent testing or inpatient evaluation. I discussed with the patient/guardian the need to see the primary care provider for further evaluation of the symptoms. 04/30 15:33 Order name: Flu; Complete Time: 16:14 snw 04/30 15:33 Order name: SARS RAPID; Complete Time: 16:08 snw 04/30 15:33 Order name: Urine W/Microscopic (UAM); Complete Time: 15:55 snw 04/30 16:10 Order name: Orthostatics; Complete Time: 16:33 snw Administered Medications: 17:04 Drug: Ketorolac IM 15 mg IM once Route: IM; Site: right deltoid; ap3 17:17 Follow up: Response: No adverse reaction; Pain is decreased ap3 17:04 Drug: Promethazine PO 25 mg PO once Route: PO; ap3 17:17 Follow up: Response: No adverse reaction; Pain is decreased ap3 Disposition: 18:05 Co-signature as Attending Physician, Doron Mueller MD I agree with the assessment and kdr plan of care. Disposition Summary: 04/30/23 16:39 Discharge Ordered Notes: Location: Home snw Condition: Stable snw Diagnosis - Other malaise and fatigue snw Followup: snw - With: Emergency Department - When: As needed - Reason: Worsening of condition Followup: snw - With: Yasmany Cook DO - When: 2 - 3 days - Reason: Recheck today's complaints, Continuance of care, Re-evaluation by your physician Discharge Instructions: - Discharge Summary Sheet snw - Fatigue snw - Form - Daily Weight Record snw - Preventing Consequences of Unhealthy Weight Loss Behaviors, Adult snw Forms: - Medication Reconciliation Form snw - Thank You Letter snw - Antibiotic Education snw - Prescription Opioid Use snw - Patient Portal Instructions snw - Leadership Thank You Letter snw Signatures: Dispatcher [employer] EDMS Doron Mueller MD MD kdr Waters, Shelly, NATIONAL SECRETARY-C NATIONAL SECRETARY-Csnw Amelia Louis, RN RN Ashley Pace RN RN ap3
[2023-04-30] MEDS ORDERED: PROMETHAZINE 25 MG TABLET ONE (17:14)
[2023-04-30] MEDS ORDERED: KETOROLAC 30 MG/ML INJ ONE (17:15)
== END 2023-04-30 17:19 | disposition home or self-care (01) ==
LOC: ER 15:06
DX: R53.81 Other malaise (principal); R53.83 Other fatigue; R51.9 Headache, unspecified; Z20.822 Contact with and (suspected) exposure to COVID-19
CPT/HCPCS: 81001; 36415; 87804 ×2; 96372; 99284; 87811; Q0169

== ENCOUNTER 2023-06-08 20:10 | Observation (INO) | payer OTHER ==
--- OUTSIDE RECORDS SUMMARY | 2023-06-08 21:08 | XMS REPORT | Continuity of Care Document ---
:1980 Author Organization [facility] t Address [address] [place] [address] Care Team Providers Name Role Phone [phone] Primary Care Physician Unavailable Bebeto Quiroga Attending Clinician Unavailable Elbert Wilson Attending Clinician Unavailable ORLY THORPE Attending Clinician Unavailable VIVI MIRANDA Attending Clinician Unavailable NETO PEOPLES Attending Clinician Unavailable LAB90 Attending Clinician Unavailable SONJA FROST Attending Clinician Unavailable LINDAMUNDO Attending Clinician Unavailable [email or web address] Attending Clinician Unavailable DOMONIQUE FONSECA IBRAHIMA Attending Clinician Unavailable Doctor Unassigned, [place] Attending Clinician Unavailable SADA SAEED Attending Clinician Unavailable NICOLÁS EID Attending Clinician Unavailable AMAN CUTLER Attending Clinician Unavailable MD DONALD Attending Clinician Unavailable KAVYA BLOCK Attending Clinician Unavailable VALDEZ MINOR Attending Clinician Unavailable ARLENE RAIN I Attending Clinician Unavailable ZOYA GONZALEZ Attending Clinician Unavailable GUDELIA GARCIA Attending Clinician Unavailable Ngoc Tinajero MD Attending Clinician Gudelia Garcia DO Attending Clinician JUDI MCCLELLAND Attending Clinician Unavailable IVELISSE MORRISON Attending Clinician Unavailable Loni [employer], Katelyn Attending Clinician KATELYN IVEY Attending Clinician Unavailable FABIO ZAMORA Attending Clinician Unavailable YRIS HARRIS Attending Clinician Unavailable Delvin FREEMAN, Leslie Monaco Attending Clinician MERI WRAY Attending Clinician Unavailable Robert Lutz MD Attending Clinician Meri Wray MD Attending Clinician Silvina Vallecillo MD Attending Clinician [phone] BEATRIZ EDUARDO Attending Clinician Unavailable Beatriz Eduardo [...] Physician, No Primary or Family Admitting Clinician Unavaila ble [email or web address] Admitting Clinician Unavailable GUDELIA GARCIA Admitting Clinician Unavailable Gudelia Garcia DO Admitting [...] Policy Number Effective Date Expiration Date S ouramara [employer]IG[employer] GENERIC [id number] 2019 00:00:00 AETNA MP CVS 9 [id number] 2022 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 00:00:00 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 [id number] 2021 NON-CONTRACT 00:00:00 GENERIC Problems Condition Condition Condition Status Onset Resolution Last Treating Co mments Source Name Details Category Date Date Treatment Clinician Date Dizziness Dizziness Disease Active 2022-07 Spencer sey 0-20 Seybold 00:00: - 00 Externa l Other Other Disease Active 2022-07 Andreea fatigue fatigue 0-20 Seybold 00:00: - 00 Externa l Hypotensio Hypotensio Disease Active 2022-07 Abel quinonez n due to n due to 0-20 Seybol d drugs drugs 00:00: - 00 Externa l Renal Renal Disease Active Andreea insufficie insufficie 9-19 Se ybold ncy ncy 00:00: - 00 Externa l Congestive Congestive Disease Active Abel quinonez heart heart 9-17 Seybold failure, failure, 00:00: - unspecifie unspecifie 00 Ex terna d HF d HF l chronicity chronicity , , unspecifie unspecifie d heart d heart failure failure type type (multi (multi HCC) HCC) Generalize Generalize Disease Active U nivers d d 7-03 [place] of abdominal [place] 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 confirmed with US Essential Essential Disease Active Uni vers hypertensi hypertensi 5-26 it y of on on 00:00: [place] [facility] POTS POTS Disease Active Univers (postural (postural 5-26 ity of orthostati orthostati [place] c c 00 Medical tachycardi tachycardi Br anch a a syndrome) syndrome) Dyslipidem Dyslipidem Disease Active U nivers ia ia 5-26 ity of 00:00: [place] [facility] Branch Atypical Atypical Disease Active Unive rs chest pain chest pain 5-25 it y of 00:00: [place] [facility] Pancreatit Pancreatit Disease Active U nivers is, is, 4-24 ity of recurrent recurrent 00:[place] [facility] Vulvar Vulvar Disease Active Methodi [...] 1-30 ity of incision incision 00:00: [place] [facility] Mood Mood Disease Active Univers swings swings 1-30 ity of 00:00: [place] [facility] Gestationa Gestationa Disease Active 2012-07 U nivers [...] of ies in ies in 00:00: [place] shape or shape or 00 Medica l [...] the original. Immunize postpartu mICD10 Diagnosis Term Warp Tester Utility Immune to Immune to Disease Active [...] 00 dic Hospita l alcohol FA Active [place] HIVES TO [facility] TEQUILA 07-30 [place] 00:00: Orthope 00 dic Hospita l tequila DA Active NV hives [facility] 1-20 [place] 00:00: Orthope 00 dic Hospita l alcohol FA Active MO 2020-0 [facility] 7-08 [place] 00:00: Orthope 00 dic Hospita l alcohol FA Active MO HIVES TO [facility] TEQUILA 01-15 [place] 00:00: Orthope 00 dic Hospita l tequila DA Active MO hives [facility] 7- [facility] Propensi Active Other (See 2019- Eye and M ethodi dewayne ty to Comments) 8-[address] adverse 00:00: Swelling Hospita reaction 00 30 mins l s to after drug taking medicatio n alcohol FA Active [place] 2015-07 [facility] 09-06 [place] 00:00: Orthope 00 dic Hospita l alcohol FA Active [place] TURNS RED 2015-07 [facility] 09-06 [place] 00:00: Orthope 00 dic Hospita l NO KNOWN Drug Active Univers ALLERGIE Class ity of S [place] [facility] Family History Family Member Diagnosis Comments Start Date Stop Date Source [facility] Natural mother Diabetes [facility] Natural sister Diabetes [facility] Social History Social Habit Start Date Stop Date Quantity Comments Source History SDOH Social Unive rsity of Connections Get [place] [facility] Branch History SDOH Social Unive rsity of Connections Formerly [facility] Branch History SDOH Social Unive rsity of Connections [place] [facility] Membership Branch History SDOH Social Unive rsity of Connections [place] [facility] Meetings Branch Sexual orientation Method [facility] Gender identity [facility] History SDOH Social 2023-01-11 2023-01-11 5 Unive rsity of Connections Phone 00:00:00 00:00:00 [place] M edical Branch History SDOH Social 2023-01-11 2023-01-11 5 Unive rsity of Connections Living 00:00:00 00:00:00 [place] [facility] History SDOH 2023-01-11 2023-01-11 0 University o f Physical Activity 00:00:00 00:00:00 [place] M edical DPW Branch History SDOH 2023-01-11 2023-01-11 0 University o f Physical Activity 00:00:00 00:00:00 [place] M edical MPS Branch History SDOH 2023-01-11 2023-01-11 5 University o f Financial 00:00:00 00:00:00 [place] [facility] History SDKY Food 2023-01-11 2023-01-11 1 Univers ity of Worry 00:00:00 00:00:00 [place] [facility] History SDKY Food 2023-01-11 2023-01-11 1 Univers ity of Scarcity 00:00:00 00:00:00 [place] [facility] Branch History SDKY 2023-01-11 2023-01-11 2 University o f Transport Med 00:00:00 00:00:00 [place] Medic al Branch History SDKY 2023-01-11 2023-01-11 2 University o f Transport Non-Med 00:00:00 00:00:00 [place] M edical Branch History SDKY 2023-01-11 2023-01-11 2 University o f Housing Unable to 00:00:00 00:00:00 [place] M edical Pay Branch History [facility] 2023-01-11 2023-01-11 1 University o f Housing Places 00:00:00 00:00:00 [facility] bonita Lived Branch History [facility] 2023-01-11 2023-01-11 2 University o f Housing Homeless 00:00:00 00:00:00 Charlie wallis Last Year Branch Education - What is 2023-01-10 2023-01-10 GED or equivalent University of the highest level 00:00:00 00:00:00 Charlie baez of school you have Branch completed or the highest degree you have received? Exposure to 2022-10-24 2022-11-03 Not sure University SARS-CoV-2 (event) 00:00:00 08:52:00 [facility] Tobacco use and 2022-08-26 2022-08-26 Smokeless tobacco Un iversity of exposure 00:00:00 00:00:00 non-user [facility] Alcohol intake 2019-11-22 2019-11-22 .14 /d Yarsani 00:00:00 00:00:00 Hospital History of Social 2019-11-22 2019-11-[address] function 00:00:00 00:00:00 Hospital History [facility] 2019-11-22 2019-11-22 2 Yarsani Alcohol Frequency 00:00:00 00:00:00 Hospita l History [facility] 2019-11-22 2019-11-22 1 Yarsani Alcohol Std Drinks 00:00:00 00:00:00 Hospit al History [facility] 2019-11-22 2019-11-22 1 Yarsani Alcohol Binge [...] Date Date Medication? Clinician (SIG) Name Name Ferrous 2022-07 Yes 325mg Take 1 Andreea Sulfate 0-27 tablet Seybold (Iron) 325 14:04: (325 mg - (65 Fe) MG 28 total) by Exte rna oral Tablet mouth l daily (with breakfast) . Folic Acid 2022-07 Yes 400ug Take 1 Mildred ey 400 MCG 0-27 tablet Seybold oral Tablet 14:04: (400 mcg - 28 total) by Externa mouth l daily. NaCl 0.9% 2022-07 No 1000mL at 999 Uni vers (NS) bolus 0-24 10-24 mL/hr, ity of infusion 01:15: 01:26 1,000 mL, [place] as 1,000 mL 00 :00 IV Medical Infusion, Branch ONCE, 1 dose, On 05/02/23 at 2015, MALAKIA HYDROcodone 2022-07- No 1{tbl} 1 tablet, Univers -acetaminop 0-24 10-24 Oral, ity of hen (NORCO 01:00: 00:55 ONCE, 1 [place] as 5) 5-325 mg 00 :00 dose, On Medi bonita tablet 1 Mon Branch tablet 05/02/23 at 1999, MALAIKA Lisinopril 2022-07- No 5mg Take 1 Mildred [...] Externa mouth l daily. Metformin 2022-07 Yes [id number] 1000mg Take 1 Andreea HCl 1000 MG 0-20 3 tablet Seybol d oral Tablet 00:00: (1,000 mg - 00 total) by Externa mouth in l the morning and 1 tablet (1,000 mg total) in the evening. Take with meals. Insulin 2022-07 Yes [id number] 100U Inject 100 Andreea Glargine 0-20 3 units into Seybo ld (Basaglar 00:00: the skin - KwikPen) 00 daily Externa 100 UNIT/ML (with l subcutaneou breakfast) s Solution . Pen-injecto r Trazodone 2022-07 Yes [id number] 150mg Take 1.5 Andreea HCl 100 MG 0-20 tablets Seybol d oral Tablet 00:00: (150 mg - 00 total) by Externa mouth l nightly. Metformin 2022-07 Yes [id number] 1000mg Take 1 Andreea HCl 1000 MG 0-20 3 tablet Seybol d oral Tablet 00:00: (1,000 mg - 00 total) by Externa mouth in l the morning and 1 tablet (1,000 mg total) in the evening. Take with meals. Insulin 2022-07 Yes [id number] 100U Inject 100 Andreea Glargine 0-20 3 units into Seybo ld (Basaglar 00:00: the skin - KwikPen) 00 daily Externa 100 UNIT/ML (with l subcutaneou breakfast) s Solution . Pen-injecto r Trazodone 2022-07 Yes [id number] 150mg Take 1.5 Andreea HCl 100 MG 0-20 tablets Seybol d oral Tablet 00:00: (150 mg - 00 total) by Externa mouth l nightly. Farxiga 2022-07 Yes [id number] TAKE 1 Andreea MG oral 0-13 3 TABLET (10 Seybol d Tablet 00:00: MG) BY - 00 MOUTH Externa DAILY. l Farxiga 2022-07 Yes [id number] TAKE 1 Andreea MG oral 0-13 3 TABLET (10 Seybol d Tablet 00:00: MG) BY - 00 MOUTH Externa DAILY. l Trazodone 2022-07- No Andreea HCl 150 MG 0-03 10-20 Seybold oral Tablet 00:00: 00:00 - 00 :00 Externa l Folic Acid 0 Yes 400ug Take 1 Mildred ey 400 MCG 9-19 tablet Seybold oral Tablet 16:20: (400 mcg - 27 total) by Externa mouth l daily. Ferrous Yes 325mg Take 1 Andreea Sulfate 9-19 tablet Seybold (Iron) 325 16:18: (325 mg - (65 Fe) MG 39 total) by Exte rna oral Tablet mouth l daily (with breakfast) . Lisinopril Yes 5mg Take 1 Kelse y 5 MG oral 9-19 tablet (5 Seybo ld Tablet 15:57: mg total) - 33 by mouth Externa daily. l Fluoxetine Yes [id number] 40mg Take 1 Andreea HCl 40 MG 9-19 capsule Seybold oral 00:00: (40 mg - Capsule 00 total) by Externa mouth l daily. Insulin Yes [id number] 80U Inject 80 Andreea Glargine 9-19 3 units into Seybo ld (Basaglar 00:00: the skin - KwikPen) 00 daily Externa 100 UNIT/ML (with l subcutaneou breakfast) s Solution . Pen-injecto r Trazodone 0 Yes [id number] 150mg Take 1.5 Andreea HCl 100 MG 9-19 tablets Seybol d oral Tablet 00:00: (150 mg - 00 total) by Externa mouth l nightly 1 1/2 tablets QD. Bupropion 2022-0 Yes [id number] 150mg Take 1 Andreea HCL XL 150 9-19 tablet Seybold MG OR TB24 00:00: (150 mg - 00 total) by Externa mouth l every morning. Fluoxetine 2022-0 Yes [id number] 40mg Take 1 Andreea HCl 40 MG 9-19 capsule Seybold oral 00:00: (40 mg - Capsule 00 total) by Externa mouth l daily. Bupropion 2022-0 Yes [id number] 150mg Take 1 Andreea HCL XL 150 9-19 tablet Seybold MG OR TB24 00:00: (150 mg - 00 total) by Externa mouth l every morning. Fluoxetine Yes [id number] 40mg Take 1 Andreea HCl 40 MG 9-19 capsule Seybold oral 00:00: (40 mg - Capsule 00 total) by Externa mouth l daily. Bupropion Yes [id number] 150mg Take 1 Andreea HCL XL 150 9-19 tablet Seybold MG OR TB24 00:00: (150 mg - 00 total) by Externa mouth l every morning. Insulin 2022- No [id number] 80U Inject 80 Andreea Glargine 9-19 10-20 3 units into Seyb old (Basaglar 00:00: 00:00 the skin - KwikPen) 00 :00 daily Externa 100 UNIT/ML (with l subcutaneou breakfast) s Solution . Pen-injecto r Trazodone 2022- No [id number] 150mg Take 1.5 Andreea HCl 100 MG 9-19 10-20 tablets Seybo ld oral Tablet 00:00: 00:00 (150 mg - 00 :00 total) by Externa mouth l nightly 1 1/2 tablets QD. Bupropion 2022- No Andreea HCL XL 150 9-05 09-19 Seybold MG OR TB24 00:00: 00:00 - 00 :00 Externa l Lisinopril Yes 5mg Take 1 Kelse y 5 MG oral 8-10 tablet (5 Seybo ld Tablet 16:33: mg total) - 29 by mouth Externa daily l Fluconazole 2022- No [id number] 150mg Take 1 Andreea 150 MG oral 8-10 09-19 tablet Seybo ld Tablet 00:00: 00:00 (150 mg - 00 :00 total) by Externa mouth once l for 1 dose Fluconazole 2022- No [id number] 150mg Take 1 Andreea 150 MG oral 8-10 08-11 tablet Seybo ld Tablet 00:00: 04:59 (150 mg - 00 :00 total) by Externa mouth once l for 1 dose Meloxicam Yes [id number] TAKE 1 Andreea 15 MG oral 7-26 9107 TABLET BY yb old Tablet 00:00: MOUTH - 00 EVERY DAY Externa NEEDED l FOR PAIN Meloxicam 0 2022- No [id number] TAKE 1 Andreea 15 MG oral 7-03-29 9107 TABLET BY isaac bold Tablet 00:00: 00:00 MOUTH - 00 :00 EVERY DAY Externa NEEDED l FOR PAIN Sawyer-3 2022-0 Yes 1{capsu Take 1 Unive rs Fatty 7-05 le} capsule by ity of Acids-Vitam 11:23: mouth in [place] in [place] the Medical 2,000-650-1 morning Branc h 2 mg/2.5 and 1 gram ElPk capsule in the evening. insulin 2022-0 Yes 16U inject 16 Unive rs aspart 7-05 Units ity of injection 11:23: under the [place] as 44 skin in [facility] the Clifford morning and 16 Units at noon and 16 Units in the evening. inject before meals. FLUoxetine 2022-0 Yes 10mg Take 1 Unive rs (PROZAC) 10 7-05 capsule by it y of mg capsule 11:23: mouth in [place] as 44 the Medical morning. Branch dapaglifloz 0 Yes Take by Uni vers in 705 mouth. Not ity of propanediol 11:23: sure of [place] as (FARXIGA 44 dose Medical ORAL) Branch Sawyer-3 2022-0 Yes 1{capsu Take 1 Unive rs Fatty 7-05 le} capsule by ity of Acids-Vitam 11:23: [place] in [place] 44 the Medical 2,000-650-1 morning Branc h 2 mg/2.5 and 1 gram ElPk capsule in the evening. insulin 2022-0 Yes 16U inject 16 Unive rs aspart 7-05 Units ity of injection 11:23: under the [place] as 44 skin in [facility] the [place] morning and 16 Units at noon and 16 Units in the evening. inject before meals. FLUoxetine 2022-0 Yes 10mg Take 1 Unive rs (PROZAC) 10 7-05 capsule by it y of mg capsule 11:23: mouth in [place] as 44 the Medical morning. Branch dapaglifloz 2022-0 Yes Take by Uni vers in 7-05 mouth. Not ity of propanediol 11:23: sure of [place] as (XIGA 44 dose Medical ORAL) Branch Sawyer-3 Yes 1{capsu Take 1 Unive rs Fatty [...] dose Medical ORAL) Branch doxycycline 0 2022- No [id number] 100mg Take 1 Univers hyclate 100 01-1216 capsule by i ty of mg capsule 00:00: 04:59 mouth [place] 00 :00 every 12 Medical (twelve) Branch hours for 10 days. metroNIDAZO 2022- No [id number] 500mg Take 1 Univers LE 500 mg 01-12 tablet by ity of tablet 00:00: 04:59 mouth [place] 00 :00 every 12 Medical (twelve) Branch hours for 10 days. ondansetron 2022- No [id number] 4mg Take 1 Univers 4 mg 01-12 [...] Tue Branch tablet 01/10/23 at 1108, Until Tue01/12/23 at 1107, Routine, Pain (scale 4-6) acetaminoph Yes 650mg 650 mg, Un fabiana en 01-10 Oral, ity of (TYLENOL) 16:08: Q6HPRN, [place] tablet 650 14 Starting Medic al mg on Tue Branch 01/10/23 at 1108, Until Discontinu ed, Routine, Pain (scale 1-3) iopamidol 2022- No [id number] 73mL 73 mL, Univers (ISOVUE 01-10 Intravenou ity o f 370-500 mL) 16:00: 16:00 s, ONCE, 1 [place] injection 00 :00 dose, On Medica l 73 mL 01/10/23 Branch at 1100, Routine NaCl 0.9% 2022- No 1000mL at 999 Uni vers (NS) bolus 01-10 mL/hr, ity of infusion 14:15: 16:22 1,000 mL, [place] as 1,000 mL 00 :00 IV Medical Infusion, Branch ONCE, 1 dose, On Tue01/10/23 at 0915, MALAIKA ondansetron 2022-0 2022- No 4mg 4 [...] Medical Tue01/10/23 Branch at 0830, STAT Lisinopril 2022-0 Yes 5mg Take 1 Kelse y 5 MG oral 6-27 tablet (5 Seybo ld Tablet 15:42: mg total) - 26 by mouth Externa daily l Spironolact 2022-0 2022- No [id number] 100mg Take 1 Andreea one 100 MG 6-27 12-25 tablet Seybol d oral Tablet 00:00: 05:59 (100 mg - 00 :00 total) by Externa mouth at l bedtime With full glass of water. Spironolact 2022-0 2022- No [id number] 100mg Take 1 Andreea one 100 MG 6-27 12-25 tablet Seybol d oral Tablet 00:00: 05:59 (100 mg - 00 :00 total) by Externa mouth at l bedtime With full glass of water. Spironolact 2022-0 2022- No [id number] 100mg Take 1 Andreea one 100 MG 6-27 12-25 tablet Seybol d oral Tablet 00:00: 05:59 (100 mg - 00 :00 total) by Externa mouth at l bedtime With full glass of water. Spironolact 3-0 2022- No [id number] 100mg Take 1 Andreea one 100 MG [...] 00:00: - 00 Externa l Trazodone 2022-0 3- No 1 1/2 Andreea HCl 100 MG 6-26 09-19 tablets QD Se ybold oral Tablet [...] mouth Externa daily l Ezetimibe 2022-0 Yes [id number] 10mg Take 1 K elsey 10 MG oral 6-13 tablet (10 Sey bold Tablet 00:00: mg total) - 00 by mouth Externa daily l Dapaglifloz 2022-0 Yes [id number] 1{tbl} Take 1 Andreea in 6-13 3 tablet by Seybold Propanediol 00:00: mouth - () 00 daily Externa 10 MG oral l Tablet Insulin 2022-0 Yes [id number] Inject 12 Andreea Aspart 6-13 3 units Plus Seybold (NovoLOG 00:00: sliding - FlexPen) 00 scale 2 Externa 100 UNIT/ML unit for l subcutaneou every 50 s Solution above 150 Pen-injecto (maximum r 70 units per day) Ezetimibe 2022-0 Yes [id number] 10mg Take 1 K elsey 10 MG oral 6-13 tablet (10 Sey bold Tablet 00:00: mg total) - 00 by mouth Externa daily l Dapaglifloz 2022-0 Yes [id number] 1{tbl} Take 1 Andreea in 6-13 3 tablet by Seybold Propanediol 00:00: mouth - (xi) 00 daily Externa 10 MG oral l Tablet Insulin 0 Yes [id number] Inject 12 Andreea Aspart 6-13 3 units Plus Seybold (NovoLOG 00:00: sliding - FlexPen) 00 scale 2 Externa 100 UNIT/ML unit for l subcutaneou every 50 s Solution above 150 Pen-injecto (maximum r 70 units per day) Ezetimibe 2022-0 Yes [id number] 10mg Take 1 K elsey 10 MG oral 6-13 tablet (10 Sey bold Tablet 00:00: mg total) - 00 by mouth Externa daily l Dapaglifloz 2022-0 Yes [id number] 1{tbl} Take 1 Andreea in 6-13 3 tablet by Seybold Propanediol 00:00: mouth - () 00 daily Externa 10 MG oral l Tablet Insulin 0 Yes [id number] Inject 12 Andreea Aspart 6-13 3 units Plus Seybold (NovoLOG 00:00: sliding - FlexPen) 00 scale 2 Externa 100 UNIT/ML unit for l subcutaneou every 50 s Solution above 150 Pen-injecto (maximum r 70 units per day) Ezetimibe 2022-0 Yes [id number] 10mg Take 1 K elsey 10 MG oral 6-13 tablet (10 Sey bold Tablet 00:00: mg total) - 00 by mouth Externa daily l Insulin 2022-0 Yes [id number] Inject 12 Andreea Aspart 6-13 3 units Plus Seybold (NovoLOG 00:00: sliding - FlexPen) 00 scale 2 Externa 100 UNIT/ML unit for l subcutaneou every 50 s Solution above 150 Pen-injecto (maximum r 70 units per day) Ezetimibe 2022-0 Yes [id number] 10mg Take 1 K elsey 10 MG oral 6-13 tablet (10 Sey bold Tablet 00:00: mg total) - 00 by mouth Externa daily l Insulin 2022-0 Yes [id number] Inject 12 Andreea Aspart 6-13 3 units Plus Seybold (NovoLOG 00:00: sliding - FlexPen) 00 scale 2 Externa 100 UNIT/ML unit for l subcutaneou every 50 s Solution above 150 Pen-injecto (maximum r 70 units per day) Ezetimibe Yes [id number] 10mg Take 1 K elsey 10 MG oral 13 tablet (10 Sey bold Tablet 00:00: mg total) - 00 by mouth Externa daily l Insulin Yes [id number] Inject 12 Andreea Aspart 12-21 3 units [...] - TABLET SR 56 :00 by mouth 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 HR daily l Pantoprazol 2022- [...] in 12-17 daily Seybold Propanediol 14:57: - (xiga) 18 Externa 10 MG oral l Tablet Lisinopril Yes 5mg Take 1 Kelse y 5 MG oral 6-09 tablet (5 Seybo ld Tablet 14:57: mg total) - 18 by mouth Externa daily l Sawyer-3 Yes [id number] 1999{ca Take 2,000 Andreea 1000 MG 6-09 psule} capsules Seybol d oral 00:00: by mouth 2 - Capsule 00 times Externa daily l Trazodone 2022-0 Yes [id number] 50mg Take 1 Spencer sey HCl 50 MG 6-09 tablet (50 Seyb old oral Tablet 00:00: mg total) - 00 by mouth Externa nightly l Fluoxetine Yes [id number] 20mg Take 1 Andreea HCl 20 MG 6-09 capsule Seybold oral 00:00: (20 mg - Capsule 00 total) by Externa mouth l daily busPIRone Yes [id number] 10mg Take 1 K elsey HCl 10 MG 6-09 tablet (10 Seyb old oral Tablet 00:00: mg total) - 00 by mouth 2 Externa times l daily Trazodone Yes [id number] 50mg Take 1 Spencer sey HCl 50 MG 6-09 tablet (50 Seyb old oral Tablet 00:00: mg total) - 00 by mouth Externa nightly l Fluoxetine Yes [id number] 20mg Take 1 Andreea HCl 20 MG 6-09 capsule Seybold oral 00:00: (20 mg - Capsule 00 total) by Externa mouth l daily busPIRone 2022-0 Yes [id number] 10mg Take 1 K elsey HCl 10 MG 6-09 tablet (10 Seyb old oral Tablet 00:00: mg total) - 00 by mouth 2 Externa times l daily Icosapent 2022-0 Yes [id number] 2{capsu Take 2 Andreea Ethyl 1 g 6-09 le} capsules Seybol d oral 00:00: by mouth 2 - Capsule 00 times Externa daily l Fluoxetine 2022-0 Yes [id number] 20mg Take 1 Andreea HCl 20 MG 6-09 capsule Seybold oral 00:00: (20 mg - Capsule 00 total) by Externa mouth l daily busPIRone 2022-0 Yes [id number] 10mg Take 1 K elsey HCl 10 MG 6-09 tablet (10 Seyb old oral Tablet 00:00: mg total) - 00 by mouth 2 Externa times l daily Icosapent 2022-0 Yes [id number] 2{capsu Take 2 Andreea Ethyl 1 g 6-09 le} capsules Seybol d oral 00:00: by mouth 2 - Capsule 00 times Externa daily l Fluoxetine 2022-0 Yes [id number] 20mg Take 1 Andreea HCl 20 MG 6-09 capsule Seybold oral 00:00: (20 mg - Capsule 00 total) by Externa mouth l daily busPIRone 2022-0 Yes [id number] 10mg Take 1 K elsey HCl 10 MG 6-09 tablet (10 Seyb old oral Tablet 00:00: mg total) - 00 by mouth 2 Externa times l daily Icosapent 2022-0 Yes [id number] 2{capsu Take 2 Andreea Ethyl 1 g 6-09 le} capsules Seybol d oral 00:00: by mouth 2 - Capsule 00 times Externa daily l busPIRone 2022-0 Yes [id number] 10mg Take 1 K elsey HCl 10 MG 6-09 tablet (10 Seyb old oral Tablet 00:00: mg total) - 00 by mouth 2 Externa times l daily Icosapent 2022-0 Yes [id number] 2{capsu Take 2 Andreea Ethyl 1 g 6-09 le} capsules Seybol d oral 00:00: by mouth 2 - Capsule 00 times Externa daily l busPIRone 2022-0 Yes [id number] 10mg Take 1 K elsey HCl 10 MG 6-09 tablet (10 Seyb old oral Tablet 00:00: mg total) - 00 by mouth 2 Externa times l daily Icosapent 2022-0 Yes [id number] 2{capsu Take 2 Andreea Ethyl 1 g 6-09 le} capsules Seybol d oral 00:00: by mouth 2 - Capsule 00 times Externa daily l busPIRone 2022-0 Yes [id number] 10mg Take 1 K elsey HCl 10 MG 6-09 tablet (10 Seyb old oral Tablet 00:00: mg total) - 00 by mouth 2 Externa times l daily Icosapent 2022-0 Yes [id number] 2{capsu Take 2 Andreea Ethyl 1 g 6-09 le} capsules Seybol d oral 00:00: by mouth 2 - Capsule 00 times Externa daily l Fluoxetine 2022-0 3- No [id number] 20mg Take 1 Andreea HCl 20 MG -03 19-19 capsule Seybol d oral 00:00: 00:00 (20 mg - Capsule 00 :00 total) by Externa mouth l daily Trazodone 2022-0 2022- No [id number] 50mg Take 1 Ke lsey HCl 50 MG 12-17 tablet (50 Sey bold oral Tablet 00:00: 00:00 mg total) - 00 :00 by mouth Externa nightly l Meloxicam 2022-0 Yes [id number] TAKE 1 Andreea 15 MG oral 5-25 9107 TABLET BY Seyb old Tablet 00:00: MOUTH - 00 EVERY DAY Externa NEEDED l FOR PAIN Meloxicam 2022-0 Yes [id number] TAKE 1 Andreea 15 MG oral 5-25 9107 TABLET BY Seyb old Tablet 00:00: MOUTH - 00 EVERY DAY Externa NEEDED l FOR PAIN Meloxicam 2022-0 Yes [id number] TAKE 1 Andreea 15 MG oral 5-25 9107 TABLET BY Seyb old Tablet 00:00: MOUTH - 00 EVERY DAY Externa NEEDED l FOR PAIN Hydrocortis 2022-0 2022- No TAKE 2 Spencer sey one 10 MG 5-25 - TABLET BY Seyb old oral Tablet 00:00: 00:00 MOUTH IN - 00 :00 THE Externa MORNING l AND 1 TABLET BY MOUTH IN THE EVENING busPIRone 2022-0 2022- No Andreea HCl 10 MG 5-24 - Seybold oral Tablet 00:00: 00:00 - 00 :00 Externa l Fluoxetine 2022-0 2022- No Andreea HCl 20 MG 5-24 06-09 Seybold oral 00:00: 00:00 - Capsule 00 :00 Externa l Trazodone 2022-0 2022- No Andreea HCl 50 MG 5-24 - Seybold oral Tablet 00:00: 00:00 - 00 :00 Externa l Promethazin 2022-0 Yes [id number] TAKE 1 TAB Andreea e HCl 5-21 (25 MG) BY Seybold (PHENERGAN) 00:00: MOUTH - 25 MG oral 00 EVERY 6 Program Director Scouting a Tablet HOURS l NEEDED FOR NAUSEA / VOMITING Promethazin 2022-0 Yes [id number] TAKE 1 TAB Andreea e HCl 5-21 (25 MG) BY Seybold (PHENERGAN) 00:00: MOUTH - 25 MG oral 00 EVERY 6 Program Director Scouting a Tablet HOURS l NEEDED FOR NAUSEA / VOMITING Promethazin 2022-0 Yes [id number] TAKE 1 TAB Andreea e HCl 5-21 (25 MG) BY Seybold (PHENERGAN) 00:00: MOUTH - 25 MG oral 00 EVERY 6 Program Director Scouting a Tablet HOURS l NEEDED FOR NAUSEA / VOMITING Promethazin 2022-0 Yes [id number] TAKE 1 TAB Andreea e HCl 5-21 (25 MG) BY Seybold (PHENERGAN) 00:00: MOUTH - 25 MG oral 00 EVERY 6 Program Director Scouting a Tablet HOURS l NEEDED FOR NAUSEA / VOMITING Promethazin 2022-0 2022- No [id number] TAKE 1 TAB Andreea e HCl 5-21 -19 (25 MG) BY Eugenieold (PHENERGAN) 00:00: 00:00 MOUTH - 25 MG oral 00 :00 EVERY 6 Program Director Scouting a Tablet HOURS l NEEDED FOR NAUSEA / VOMITING HYDROcodone 2022- No 1{tbl} Q.25D Take 1 Andreea -Acetaminop -12-17 tablet by Se jeny hen 10-325 00:00: 00:00 mouth - MG oral 00 :00 every 6 Externa Tablet hours as l needed FOR PAIN Phenazopyri 2022-0 2022- No 100mg Take 1 Ke lsey dine HCl -12-17 tablet Seybold 100 MG oral 00:00: 00:00 (100 mg - Tablet 00 :00 total) by Externa mouth 3 l times daily Ezetimibe 2022- No TAKE 1 Kelse y 10 MG oral 11-14 TABLET (10 Se ybold Tablet 00:00: 00:00 MG) BY - 00 :00 MOUTH Externa DAILY. l Icosapent 2022-0 2022- No TAKE 2 Kelse y Ethyl 1 g 11-14 CAPSULES Seybo ld oral 00:00: 00:00 BY MOUTH - Capsule 00 :00 TWICE A Externa DAY WITH l MEALS Metformin 2022- No 1000mg Take 2 Spencer sey HCl ER 500 5-07 06-09 tablets Seybo ld MG oral 00:00: 00:00 [...] dose, On 11/03/22 at 1030, STAT famotidine No 20mg 20 [...] bonita 1:1:1 Wed Branch ([facility] 11/03/22 at [facility]) 0945, oral Routine suspension 15 mL ketorolac 2022- No 30mg 30 mg, Unive rs (TORADOL) 11-03 Slow IV ity of injection 14:30: 14:36 Push, [place] 30 mg 00 :00 ONCE, 1 Medical dose, On Branch 11/03/22 at 0930, MALAI[place] ondansetron 2022-2022- No 4mg 4 mg, Slow Univers (ZOFRAN 11-03 IV Push, ity of (PF)) 14:30: 14:35 ONCE, 1 [place] injection 4 00 :00 dose, On Medi bonita mg Wed Branch 11/03/22 at 0930, MALAIKA dicyclomine 2022-0 Yes [id number] 20mg Take 1 Univers 20 mg 4-26 tablet by ity of tablet 00:00: mouth 4 [place] 00 (four) Medical times Branch daily as needed for Abdominal pain. ondansetron 2022-0 Yes [id number] 4mg Take 1 Univers 4 mg 4-26 tablet by ity of disintegrat 00:00: mouth [place] ing tablet 00 every 12 Medic al (twelve) Branch hours as needed for Nausea and Vomiting (N/V). dicyclomine 2022-2022- No [id number] 20mg Take 1 Univers 20 mg 4- 07-03 tablet by ity of tablet 00:00: 00:00 mouth 4 [place] 00 :00 (four) Medical times Branch daily as needed for Abdominal pain. ondansetron 2022- No [id number] 4mg Take 1 Univers 4 mg 4-02 [...] Externa times l daily as needed Ondansetron 2022-2022- No TAKE 1 Spencer sey (ZOFRAN) 4 - 06-09 TABLET BY Sey bold MG oral 00:00: 00:00 MOUTH - TABLET 00 :00 EVERY 12 Externa DISPERSIBLE HOURS l NEEDED FOR NAUSEA AND VOMITING Atorvastati 2022- Yes [id number] 80mg Take 1 Andreea n Calcium 4-18 tablet (80 Seyb old 80 MG oral 00:00: mg total) - Tablet 00 by mouth Externa daily l Insulin 2022-0 Yes [id number] 10U Inject 10 Andreea Aspart 4-18 3 units into Seybold (NovoLOG 00:00: the skin 3 - FlexPen) 00 times Externa 100 UNIT/ML daily l subcutaneou (before s Solution meals) Pen-injecto Plus r sliding scale 1 unit for every 50 above 150 (maximum 50 units per day) Insulin Yes [id number] 100U Inject 100 Andreea Glargine 4-18 3 units into Seybo ld (Basaglar 00:00: the skin - KwikPen) 00 at bedtime Exter na 100 UNIT/ML l subcutaneou s Solution Pen-injecto r Metformin 0 Yes [id number] 1000mg Take 1 Andreea HCl 1000 MG 4-18 3 tablet Seybol d oral Tablet 00:00: (1,000 mg - 00 total) by Externa mouth in l the morning and 1 tablet (1,000 mg total) in the evening. Take with meals. Atorvastati Yes [id number] 80mg Take 1 Andreea n Calcium 4-18 tablet (80 Seyb old 80 MG oral 00:00: mg total) - Tablet 00 by mouth Externa daily l Insulin Yes [id number] 100U Inject 100 Andreea Glargine 4-18 3 units into Seybo ld (Basaglar 00:00: the skin - KwikPen) 00 at bedtime Exter na 100 UNIT/ML l subcutaneou s Solution Pen-injecto r Metformin 0 Yes [id number] 1000mg Take 1 Andreea HCl 1000 MG 4-18 3 tablet Seybol d oral Tablet 00:00: (1,000 mg - 00 total) by Externa mouth in l the morning and 1 tablet (1,000 mg total) in the evening. Take with meals. Atorvastati Yes [id number] 80mg Take 1 Andreea n Calcium 4-18 tablet (80 Seyb old 80 MG oral 00:00: mg total) - Tablet 00 by mouth Externa daily l Insulin Yes [id number] 100U Inject 100 Andreea Glargine 4-18 3 units into Seybo ld (Basaglar 00:00: the skin - KwikPen) 00 at bedtime Exter na 100 UNIT/ML l subcutaneou s Solution Pen-injecto r Metformin 0 Yes [id number] 1000mg Take 1 Andreea HCl 1000 MG 4-18 3 tablet Seybol d oral Tablet 00:00: (1,000 mg - 00 total) by Externa mouth in l the morning and 1 tablet (1,000 mg total) in the evening. Take with meals. Atorvastati 2022-0 Yes [id number] 80mg Take 1 Andreea n Calcium 4-18 tablet (80 Seyb old 80 MG oral 00:00: mg total) - Tablet 00 by mouth Externa daily l Insulin 2022-0 Yes [id number] 100U Inject 100 Andreea Glargine 4-18 3 units into Seybo ld (Basaglar 00:00: the skin - KwikPen) 00 at bedtime Exter na 100 UNIT/ML l subcutaneou s Solution Pen-injecto r Metformin 2022-0 Yes [id number] 1000mg Take 1 Andreea HCl 1000 MG 4-18 3 tablet Seybol d oral Tablet 00:00: (1,000 mg - 00 total) by Externa mouth in l the morning and 1 tablet (1,000 mg total) in the evening. Take with meals. Atorvastati 2022-0 Yes [id number] 80mg Take 1 Andreea n Calcium 4-18 tablet (80 Seyb old 80 MG oral 00:00: mg total) - Tablet 00 by mouth Externa daily l Metformin 2022-0 Yes [id number] 1000mg Take 1 Andreea HCl 1000 MG 4-18 3 tablet Seybol d oral Tablet 00:00: (1,000 mg - 00 total) by Externa mouth in l the morning and 1 tablet (1,000 mg total) in the evening. Take with meals. Atorvastati 2022-0 Yes [id number] 80mg Take 1 Andreea n Calcium 4-18 tablet (80 Seyb old 80 MG oral 00:00: mg total) - Tablet 00 by mouth Externa daily l Atorvastati 2022-0 Yes [id number] 80mg Take 1 Andreea n Calcium 4-18 tablet (80 Seyb old 80 MG oral 00:00: mg total) - Tablet 00 by mouth Externa daily l Metformin 2022-0 3- No [id number] 1000mg Take 1 Andreea HCl 1000 MG 4-18 10-20 3 tablet Seybo ld oral Tablet 00:00: 00:00 (1,000 mg - 00 :00 total) by Externa mouth in l the morning and 1 tablet (1,000 mg total) in the evening. Take with meals. Insulin 3- No [id number] 100U Inject 100 Andreea Glargine 10-26-19 3 units into Seyb old (Basaglar 00:00: 00:00 the skin - KwikPen) 00 :00 at bedtime Exter na 100 UNIT/ML l subcutaneou s Solution Pen-injecto r Insulin 2022- No [id number] 10U Inject 10 Andreea Aspart 10-26-13 3 units into Seybol d (NovoLOG 00:00: [...] - 28 Externa l Meloxicam 2022-0 Yes [id number] 15mg QD Take 1 Andreea 15 MG oral 10-01 9107 tablet (15 Sey bold Tablet 00:00: [...] Take 50 mg Andreea ne HCl 50 -03 by mouth Seybol d MG oral 10:09: [...] in 3-03 daily Seybold Propanediol 10:09: - (xiga) 34 Externa 10 MG oral l Tablet [...] daily - 34 Externa l Continuous Yes [id number] Use as Andreea Blood Gluc 3-03 3 directed Seybo ld Transmit 00:00: for - (Dexcom G6 00 continuous Ext john Transmitter glucose l ) does not monitoring apply Misc with Dexcom system Continuous Yes [id number] Use as Andreea Blood Gluc 3-03 3 directed Seybo ld Chair Finisher 00:00: for - (Dexcom G6 00 continuous Ext john Chair Finisher) glucose l does not monitoring apply Device Continuous Yes [id number] Use as Andreea Blood Gluc 3-03 3 directed Seybo ld Sensor 00:00: for - (Dexcom G6 00 continuous Ext john Sensor) glucose l does not monitoring apply Misc with Dexcom system Ostomy Yes [id number] Use as Ke lsey Supplies 3-03 3 directed Seybold (Skin Tac 00:00: for - Adhesive 00 continuous Exter na Barrier glucose l Wipe) does monitoring not apply with Misc Dexcom system Fenofibrate Yes [id number] 160mg Take 1 Andreea 160 MG oral 3-03 tablet Seybol d Tablet 00:00: (160 mg - 00 total) by Externa mouth l daily Insulin Yes [id number] 10U Inject 10 Andreea Aspart 3-03 3 units into Seybold (NovoLOG 00:00: the skin 3 - FlexPen) 00 times Externa 100 UNIT/ML daily l subcutaneou (before s Solution meals) Pen-injecto Plus r sliding scale 1 unit for every 50 above 150 (maximum 50 units per day) Continuous Yes [id number] Use as Andreea Blood Gluc 3-03 3 directed Seybo ld Transmit 00:00: for - (Dexcom G6 00 continuous Ext john Transmitter glucose l ) does not monitoring apply Misc with Dexcom system Continuous Yes [id number] Use as Andreea Blood Gluc 3-03 3 directed Seybo ld Chair Finisher 00:00: for - (Dexcom G6 00 continuous Ext john Chair Finisher) glucose l does not monitoring apply Device Continuous Yes [id number] Use as Andreea Blood Gluc 3-03 3 directed Seybo ld Sensor 00:00: for - (Dexcom G6 00 continuous Ext john Sensor) glucose l does not monitoring apply Misc with Dexcom system Ostomy Yes [id number] Use as Ke lsey Supplies 3-03 3 directed Seybold (Skin Tac 00:00: for - Adhesive 00 continuous Exter na Barrier glucose l Wipe) does monitoring not apply with Misc Dexcom system Fenofibrate Yes [id number] 160mg Take 1 Andreea 160 MG oral 3-03 tablet Seybol d Tablet 00:00: (160 mg - 00 total) by Externa mouth l daily Continuous Yes [id number] Use as Andreea Blood Gluc 3-03 3 directed Seybo ld Transmit 00:00: for - (Dexcom G6 00 continuous Ext john Transmitter glucose l ) does not monitoring apply Misc with Dexcom system Continuous Yes [id number] Use as Andreea Blood Gluc 3-03 3 directed Seybo ld Chair Finisher 00:00: for - (Dexcom G6 00 continuous Ext john Chair Finisher) glucose l does not monitoring apply Device Continuous Yes [id number] Use as Andreea Blood Gluc 3-03 3 directed Seybo ld Sensor 00:00: for - (Dexcom G6 00 continuous Ext john Sensor) glucose l does not monitoring apply Misc with Dexcom system Ostomy Yes [id number] Use as Ke lsey Supplies 3-03 3 directed Seybold (Skin Tac 00:00: for - Adhesive 00 continuous Exter na Barrier glucose l Wipe) does monitoring not apply with Misc Dexcom system Fenofibrate Yes [id number] 160mg Take 1 Andreea 160 MG oral 3-03 tablet Seybol d Tablet 00:00: (160 mg - 00 total) by Externa mouth l daily Continuous Yes [id number] Use as Andreea Blood Gluc 3-03 3 directed Seybo ld Transmit 00:00: for - (Dexcom G6 00 continuous Ext john Transmitter glucose l ) does not monitoring apply Misc with Dexcom system Continuous Yes [id number] Use as Andreea Blood Gluc 3-03 3 directed Seybo ld Chair Finisher 00:00: for - (Dexcom G6 00 continuous Ext john Chair Finisher) glucose l does not monitoring apply Device Continuous 0 Yes [id number] Use as Andreea Blood Gluc 3-03 3 directed Seybo ld Sensor 00:00: for - (Dexcom G6 00 continuous Ext john Sensor) glucose l does not monitoring apply Misc with Dexcom system Ostomy Yes [id number] Use as Ke lsey Supplies 3-03 3 directed Seybold (Skin Tac 00:00: for - Adhesive 00 continuous Exter na Barrier glucose l Wipe) does monitoring not apply with Misc Dexcom system Fenofibrate Yes [id number] 160mg Take 1 Andreea 160 MG oral 3-03 tablet Seybol d Tablet 00:00: (160 mg - 00 total) by Externa mouth l daily Continuous Yes [id number] Use as Andreea Blood Gluc 3-03 3 directed Seybo ld Transmit 00:00: for - (Dexcom G6 00 continuous Ext john Transmitter glucose l ) does not monitoring apply Misc with Dexcom system Continuous Yes [id number] Use as Andreea Blood Gluc 3-03 3 directed Seybo ld Chair Finisher 00:00: for - (Dexcom G6 00 continuous Ext john Chair Finisher) glucose l does not monitoring apply Device Continuous Yes [id number] Use as Andreea Blood Gluc 3-03 3 directed Seybo ld Sensor 00:00: for - (Dexcom G6 00 continuous Ext john Sensor) glucose l does not monitoring apply Misc with Dexcom system Fenofibrate Yes [id number] 160mg Take 1 Andreea 160 MG oral 3-03 tablet Seybol d Tablet 00:00: (160 mg - 00 total) by Externa mouth l daily Continuous Yes [id number] Use as Andreea Blood Gluc 3-03 3 directed Seybo ld Transmit 00:00: for - (Dexcom G6 00 continuous Ext john Transmitter glucose l ) does not monitoring apply Misc with Dexcom system Continuous 0 Yes [id number] Use as Andreea Blood Gluc 3-03 3 directed Seybo ld Chair Finisher 00:00: for - (Dexcom G6 00 continuous Ext john Chair Finisher) glucose l does not monitoring apply Device Continuous 0 Yes [id number] Use as Andreea Blood Gluc 3-03 3 directed Seybo ld Sensor 00:00: for - (Dexcom G6 00 continuous Ext john Sensor) glucose l does not monitoring apply Misc with Dexcom system Fenofibrate Yes [id number] 160mg Take 1 Andreea 160 MG oral 3-03 tablet Seybol d Tablet 00:00: (160 mg - 00 total) by Externa mouth l daily Continuous Yes [id number] Use as Andreea Blood Gluc 3-03 3 directed Seybo ld Transmit 00:00: for - (Dexcom G6 00 continuous Ext john Transmitter glucose l ) does not monitoring apply Misc with Dexcom system Continuous 0 Yes [id number] Use as Andreea Blood Gluc 3-03 3 directed Seybo ld Chair Finisher 00:00: for - (Dexcom G6 00 continuous Ext john Chair Finisher) glucose l does not monitoring apply Device Continuous 0 Yes [id number] Use as Andreea Blood Gluc 3-03 3 directed Seybo ld Sensor 00:00: for - (Dexcom G6 00 continuous Ext john Sensor) glucose l does not monitoring apply Misc with Dexcom system Fenofibrate Yes [id number] 160mg Take 1 Andreea 160 MG oral 3-03 tablet Seybol d Tablet 00:00: (160 mg - 00 total) by Externa mouth l daily Continuous Yes [id number] Use as Andreea Blood Gluc 3-03 3 directed Seybo ld Transmit 00:00: for - (Dexcom G6 00 continuous Ext john Transmitter glucose l ) does not monitoring apply Misc with Dexcom system Continuous 0 Yes [id number] Use as Andreea Blood Gluc 3-03 3 directed Seybo ld Chair Finisher 00:00: for - (Dexcom G6 00 continuous Ext john Chair Finisher) glucose l does not monitoring apply Device Continuous Yes [id number] Use as Andreea Blood Gluc 3-03 3 directed Seybo ld Sensor 00:00: for - (Dexcom G6 00 continuous Ext john Sensor) glucose l does not monitoring apply Misc with Dexcom system Fenofibrate Yes [id number] 160mg Take 1 Andreea 160 MG oral 3-03 tablet Seybol d Tablet 00:00: (160 mg - 00 total) by Externa mouth l daily Continuous Yes [id number] Use as Andreea Blood Gluc 3-03 3 directed Seybo ld Transmit 00:00: for - (Dexcom G6 00 continuous Ext john Transmitter glucose l ) does not monitoring apply Misc with Dexcom system Continuous Yes [id number] Use as Andreea Blood Gluc 3-03 3 directed Seybo ld Chair Finisher 00:00: for - (Dexcom G6 00 continuous Ext john Chair Finisher) glucose l does not monitoring apply Device Continuous Yes [id number] Use as Andreea Blood Gluc 3-03 3 directed Seybo ld Sensor 00:00: for - (Dexcom G6 00 continuous Ext john Sensor) glucose l does not monitoring apply Misc with Dexcom system Ostomy Yes [id number] Use as Ke lsey Supplies 3-03 3 directed Seybold (Skin Tac 00:00: for - Adhesive 00 continuous Exter na Barrier glucose l Wipe) does monitoring not apply with Misc Dexcom system Fenofibrate Yes [id number] 160mg Take 1 Andreea 160 MG oral 3-03 tablet Seybol d Tablet 00:00: (160 mg - 00 total) by Externa mouth l daily Insulin Yes [id number] 10U Inject 10 Andreea Aspart 3-03 3 units into Seybold (NovoLOG 00:00: the skin 3 - FlexPen) 00 times Externa 100 UNIT/ML daily l subcutaneou (before s Solution meals) Pen-injecto Plus r sliding scale 1 unit for every 50 above 150 (maximum 50 units per day) Ostomy 0 2022- No [id number] Use as K elsey Supplies 3-03 08-10 3 directed Seybol d (Skin Tac 00:00: 00:00 for - Adhesive 00 :00 continuous Exter na Barrier glucose l Wipe) does monitoring not apply with Misc Dexcom system Insulin Yes [id number] 100U Inject 100 Andreea Glargine 3-01 3 units into Seybo ld (Basaglar 00:00: the skin - KwikPen) 00 at bedtime Exter na 100 UNIT/ML l subcutaneou s Solution Pen-injecto r Sawyer-3 Yes [id number] 1000{ca Take 1,000 Andreea 1000 MG 3-01 psule} capsules Seybol d oral 00:00: by mouth 3 - Capsule 00 times Externa daily l Insulin Yes [id number] 100U Inject 100 Andreea Glargine 3-01 3 units into Seybo ld (Basaglar 00:00: the skin - KwikPen) 00 at bedtime Exter na 100 UNIT/ML l subcutaneou s Solution Pen-injecto r Sawyer-3 Yes [id number] 1000{ca Take 1,000 Andreea 1000 MG 3-01 psule} capsules Seybol d oral 00:00: by mouth 3 - Capsule 00 times Externa daily l Sawyer-3 0 202- No [id number] 1000{ca Take 1,000 Andreea 1000 MG 3-01 06-09 psule} capsules Seybo ld oral 00:00: 00:00 by mouth 3 - Capsule 00 :00 times Externa daily l Insulin 2022- No [id number] 10U Inject 10 Andreea Aspart 3- 03-03 3 units into Seybol d (NovoLOG 00:00: 00:00 the skin 3 - FlexPen) 00 :00 times Externa 100 UNIT/ML daily l subcutaneou (before s Solution meals) Pen-injecto r Sawyer-3 2022- No Take by Andreea 1000 MG [...] Tablet 14:59: daily - 38 Externa l Sawyer-3 Yes [id number] 1000{ca Take 1,000 Andreea 1000 MG 2-28 psule} capsules Seybol d oral 00:00: by mouth 3 - Capsule 00 times Externa daily l Insulin Yes [id number] 10U Inject 10 Andreea Aspart 2-28 3 units into Seybold (NovoLOG 00:00: the skin 3 - FlexPen) 00 times Externa 100 UNIT/ML daily l subcutaneou (before s Solution meals) Pen-injecto r Insulin Yes [id number] 100U Inject 100 Andreea Glargine 2-28 3 units into Seybo ld (Basaglar 00:00: the skin - KwikPen) 00 at bedtime Exter na 100 UNIT/ML l subcutaneou s Solution Pen-injecto r Insulin 2022- No [id number] 100U Inject 100 Andreea Glargine 2-28 02-28 [...] Until Tue08/30/22 at 0825, Routine insulin Yes [id number] 72U inject 72 Univers degludec 2-20 Units ity of (TRESIBA 00:00[place] FLEXTOUCH 00 skin 2 Medical U-100) 100 (two) Branch unit/mL (3 times mL) InPn daily. insulin Yes [id number] 72U inject 72 Univers degludec 2-20 Units ity of (TRESIBA 00:00: [place] FLEXTOUCH 00 skin 2 Medical U-100) 100 (two) Branch unit/mL (3 times mL) InPn daily. insulin Yes [id number] 72U inject 72 Univers degludec 2-20 Units ity of (TRESIBA 00:00: [place] FLEXTOUCH 00 skin 2 Medical U-100) 100 (two) Branch unit/mL (3 times mL) InPn daily. insulin 2022- No [id number] 72U inject 72 Univers degludec 2-20 07-03 Units ity of (TRESIBA 00:00: 00:00 under the [place] as FLEXTOUCH 00 :00 skin 2 Medical U-100) 100 (two) Branch unit/mL (3 times mL) InPn daily. atorvastati 2022- No [id number] 80mg Take 1 Univers n 80 mg -09-30 tablet by ity of tablet 00:00: 04:59 mouth at [place] 00 :00 bedtime Medical for 30 Branch days. LOVWAYNEA, 2022- No [id number] 1g Take 1 Un fabiana omega-3-aci 08-30 capsule by i ty of d ethyl 00:00: 04:59 mouth in [place] esters, 1 00 :00 the Medical gram morning Branch capsule and 1 capsule in the evening. Do all this for 30 days. atorvastati 2022- No [id number] 80mg Take 1 Univers n 80 mg 08-30 tablet by ity of tablet 00:00: 04:59 mouth at [place] 00 :00 bedtime Medical for 30 Branch days. LOVAZA, 2022- No [id number] 1g Take 1 Un fabiana omega-3-aci 08-30 capsule by i ty of d ethyl 00:00: 04:59 mouth in [place] esters, 1 00 :00 the Medical gram [...] 08-28 Oral, ity of (TYLENOL) 18:48: Q6HPRN, [place] tablet 650 59 Starting Medic al mg [...] On Rachael 08/26/22 at 1930, MALAIKA ondansetron 2022-0 Yes 4mg 4 mg, Slow Univers (ZOFRAN 08-27 IV Push, ity of (PF)) 01:21: Q6HPRN, [place] injection 4 59 Nausea and Me dical mg Vomiting Branch (N/V), Starting on Rachael 08/26/22 at 1921
Do ses of ondansetro n 16 mg and above need to be administer ed via IV piggyback. For Dose >=24mg ECG monitoring is advisable.
glucagon 2022-0 Yes 1mg 1 mg, Univers (GLUCAGEN 08-27 [...] al , Starting Branch on [facility] 08/26/22 at 1800, Until 08/29/22 at 1545, Routine LOVAZA Yes 2{capsu 2 g (2 Univer s (omega-3-ac 2-16 le} capsule), ity of id ethyl 23:00: Oral, BID, [place] as esters) 00 First dose Medica l capsule 2 g on [facility] 08/26/22 at 1700, Until Discontinu ed, Routine atorvastati Yes 80mg 80 mg, Univ ers n (LIPITOR) 2-16 Oral, QHS, it y of tablet 80 23:00: First dose [place] mg 00 on [facility] 08/26/22 at Branch 1700, Until Discontinu ed, Routine insulin 2022- No 8U 8 Units, Unive rs regular 08-26 Slow IV ity of human 23:00: 23:06 Push, [place] (HUMULIN R) 00 :00 ONCE, 1 Medic al injection 8 dose, On Bran ch Units [facility] 08/26/22 at 1700, STAT
In dication for insulin: Hyperglyce shea NaCl 0.9% 2022- No 2000mL at 999 Uni vers (NS) bolus 08-26 mL/hr, ity of infusion 21:45: 23:52 2,000 mL, [place] as 2,000 mL 00 :00 IV Medical Piggyback, Branch ONCE, 1 dose, On [facility] 08/26/22 at 1545, STAT insulin 2022- No 10U 10 Units, Univ ers regular 08-26 Slow IV ity of human 21:00: 21:11 Push, [place] (HUMULIN R) 00 :00 ONCE, 1 Medic al injection dose, On Branch 10 Units [facility] 08/26/22 at 1500, STAT
In dication for insulin: Hyperglyce shea Lactobacill 2022- No Take by Un fabiana 08-26 mouth. ity of acidophilus 18:46: 00:00 [place] (PROBIOTIC 18 :00 Medical ORAL) Branch MULTIVITAMI 2022- No Take by Un fabiana N ORAL 2-16 02-16 mouth. ity of 18:46: 00:00 [place] 18 :00 Medical Branch multivitami 2022- No Take by Un fabiana n with 2-16 02-16 mouth. ity of minerals 18:46: 00:00 [place] (HAIR,SKIN 18 :00 Medical AND NAILS Branch ORAL) Lactobacill 2022- No Take by Un fabiana us 2-16 02-16 mouth. ity of acidophilus 18:46: 00:00 [place] (PROBIOTIC 18 :00 Medical ORAL) Branch MULTIVITAMI 2022- No Take by Un fabiana N ORAL 2-16 02-16 mouth. ity of 18:46: 00:00 [place] 18 :00 Medical Branch multivitami 2022- No Take by Un fabiana n with 2-16 02-16 mouth. ity of minerals 18:46: 00:00 [place] (HAIR,SKIN 18 :00 Medical AND NAILS Branch ORAL) TAKE 1 2021-1 No TABLET 2-14 DAILY. 00:00: 00 TAKE 1 2021-1 No TABLET 2-14 TWICE 00:00: DAILY. 00 TAKE 1 2021-1 No TABLET 2-14 TWICE DAILY 00:00: UNTIL 00 FINISHED. INJECT 72 2021-1 No UNITS TWICE 2-14 A DAY 00:00: [...] DAY 00 TAKE 1 2021-1 No TABLET 2-14 DAILY. 00:00: 00 TAKE 1 2021-1 No TABLET 2-14 TWICE 00:00: DAILY. 00 TAKE 1 2021- No TABLET 2-14 TWICE DAILY 00:00: UNTIL 00 FINISHED. INJECT 72 2021-1 No UNITS TWICE 2-14 A DAY 00:00: [...] 00:00: A DAY 00 NaCl 0.9% 2021-07 No 1000mL at 999 [...] Parameters infusion in Admin. Instr., Starting on 06/21/22 at 2000
- Follow 'DKA Insulin Rate [...] No 4mg 4 mg, Slow Univers (ZOFRAN 2 12-13 IV Push, ity of (PF)) 01:00: 01:01 ONCE, 1 [place] injection 4 00 :00 dose, On Medi bonita mg [facility] 06/21/22 at 1900, MALAIKA NaCl 0.9% 2021-07- No 1000mL at 999 Uni vers (NS) bolus 2- 12-13 mL/hr, ity of infusion 00:45: 01:56 [...] Valium 10 2-0 No 1mg mg tablet 6- 00:00: 00 Macrodantin 2-0 No 1mg 100 mg 6-03 capsule 00:00: 00 Dose 2-0 No Unknown 6-03 00:00: 00 Dose 2-0 No Unknown 6-03 00:00: 00 Dose 2-0 No Unknown 5-18 00:00: 00 atorvastati 2022-0 [...] 80 mg 5-18 tablet 00:00: 00 Dose 2-0 No Unknown 5-18 00:00: 00 Dose 2-0 No Unknown 5-14 [...] 2-0 No Unknown 5-14 00:00: 00 Victoza 2022-0 [...] No .1U/kg 10.3 Units U nivers regular 10-17- (rounded ity of human 02:00: 01:14 from 10.34 [place] (HUMULIN R) 00 :00 Units = Medic [...] injection 4 00 :00 dose, On [facility] mg Tue10/16/21 Branch at 1815, MALAIKA ketorolac 2021- No 30mg 30 mg, Unive rs (TORADOL) 10-16 Slow IV ity of injection 23:15: 23:05 Push, [place] 30 mg 00 :00 ONCE, 1 Medical dose, On Branch Tue10/16/21 at 1815, Routine
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 ondansetron 2022-0 Yes [id number] 4mg Take 1 [facility] 4 mg 4-08 tablet by ity of disintegrat 00:00: mouth [place] ing tablet 00 every 8 Medica l (eight) Branch hours as needed for Nausea and Vomiting (N/V). oxybutynin 2-0 Yes [id number] 5mg Take 1 [facility] chloride 5 4-08 tablet by ity of mg tablet 00:00: mouth 3 [place] 00 (three) Medical times Branch daily as needed for Bladder spasms. ondansetron 2-0 Yes [id number] 4mg Take 1 [facility] 4 mg 4-08 tablet by ity of disintegrat 00:00: mouth [place] ing tablet 00 every 8 Medica l (eight) Branch hours as needed for Nausea and Vomiting (N/V). oxybutynin 2-0 Yes [id number] 5mg Take 1 [facility] chloride 5 4-08 tablet by ity of mg tablet 00:00: mouth 3 [place] 00 (three) Medical times Branch daily as needed for Bladder spasms. ondansetron 2-0 Yes [id number] 4mg Take 1 [facility] 4 mg 4-08 tablet by ity of disintegrat 00:00: mouth [place] ing tablet 00 every 8 Medica l (eight) Branch hours as needed for Nausea and Vomiting (N/V). oxybutynin 2-0 Yes [id number] 5mg Take 1 [facility] chloride 5 4-08 tablet by ity of mg tablet 00:00: mouth 3 [place] 00 (three) Medical times Branch daily as needed for Bladder spasms. ondansetron 2-0 Yes [id number] 4mg Take 1 Univers 4 mg 4-08 tablet by ity of disintegrat 00:00: mouth [place] ing tablet 00 every 8 Medica l (eight) Branch hours as needed for Nausea and Vomiting (N/V). oxybutynin 2022-0 Yes [id number] 5mg Take 1 [facility] chloride 5 4-08 tablet by ity of mg tablet 00:00: mouth 3 [place] 00 (three) Medical times Branch daily as needed for Bladder spasms. ondansetron 2-0 Yes [id number] 4mg Take 1 Univers 4 mg 4-08 tablet by ity of disintegrat 00:00: mouth [place] ing tablet 00 every 8 Medica l (eight) Branch hours as needed for Nausea and Vomiting (N/V). oxybutynin 2022- No [id number] 5mg Take 1 [facility] chloride 5 10-16 tablet by ity of mg tablet 00:00: 00:00 mouth 3 [place] :[place] (three) Medical times Branch daily as needed for Bladder spasms. ondansetron 2022- No [id number] 4mg Take 1 [facility] 4 mg 10-16 tablet by ity of disintegrat 00:00: 00:00 [place] tablet 00 :00 every 8 Medica l (eight) Branch hours as needed for Nausea and Vomiting (N/V). traMADoL 50 2021- No [id number] 50mg Take 1 Uni vers mg tablet 10-16 tablet by ity of 00:00: 04:59 mouth [...] 4-02 00:00: 00 Dose 2022-0 No Unknown 3- [...] 0800, Until Discontinu ed, Routine ketorolac 2020-07 No 30mg 30 mg, Unive rs (TORADOL) [...] Indication s: acute pain ondansetron 2020-07 Yes [id number] 4mg Take 1 Univers 4 mg 2-09 [...] Indication s: acute pain ondansetron 2020-07 Yes [id number] 4mg Take 1 [facility] 4 mg 2-09 [...] Indication s: acute pain ondansetron 2020-07 Yes [id number] 4mg Take 1 Univers 4 mg 2-09 [...] Indication s: acute pain ondansetron 2020-07- No [id number] 4mg Take 1 Univers 4 mg -03 [...] 25 2-08 mg tablet 00:00: 00 glimepiride 2021-1 No 1mg 4 mg tablet 2-08 00:00: [...] 05/30/21 at 1800, Routine iopamidol 2020-07- No [id number] 100mL 100 mL, Univers (ISOVUE 07-30 9109 Intravenou ity o f 370-500 mL) 23:48: 23:48 s, ONCE, 1 [place] injection 00 :00 dose, On Medica l 100 mL Sat Branch 05/30/21 at 1800, Routine ibuprofen 2020-07 Yes [id number] 600mg Take 1 [facility] 600 mg 1-20 [id number] tablet by ity of tablet 00:00: mouth [place] 00 every 6 Medical (six) Branch hours as needed for Pain (scale 4-6). traMADoL 50 2020-07 Yes [id number] 50mg Take 1 Univ ers mg tablet 1-20 tablet by ity o f 00:00: mouth [place] 00 every 6 Medical (six) Branch hours as needed for Pain (scale 7-10). Indication s: acute pain ibuprofen 2020-07 Yes [id number] 600mg Take 1 [facility] 600 mg 1-20 [id number] tablet by ity of tablet 00:00: mouth [place] 00 every 6 Medical (six) Branch hours as needed for Pain (scale 4-6). traMADoL 50 2020-07 Yes [id number] 50mg Take 1 Univ ers mg tablet 1-20 tablet by ity o f 00:00: mouth [place] 00 every 6 Medical (six) Branch hours as needed for Pain (scale 7-10). Indication s: acute pain ibuprofen 2020-07 Yes [id number] 600mg Take 1 [facility] 600 mg 1-20 [id number] tablet by ity of tablet 00:00: mouth [place] 00 every 6 Medical (six) Branch hours as needed for Pain (scale 4-6). traMADoL 50 2020-07 Yes [id number] 50mg Take 1 Univ ers mg tablet 1-20 tablet by ity o f 00:00: mouth [place] 00 every 6 Medical (six) Branch hours as needed for Pain (scale 7-10). Indication s: acute pain ibuprofen 2020-07 Yes [id number] 600mg Take 1 [facility] 600 mg 1-20 [id number] tablet by ity of tablet 00:00: mouth [place] 00 every 6 Medical (six) Branch hours as needed for Pain (scale 4-6). traMADoL 50 2020-07 Yes [id number] 50mg Take 1 Univ ers mg tablet 1-20 tablet by ity o f 00:00: mouth [place] 00 every 6 Medical (six) Branch hours as needed for Pain (scale 7-10). Indication s: acute pain ibuprofen 2020-07 Yes [id number] 600mg Take 1 Univers 600 mg 1-20 [id number] tablet by ity of tablet 00:00: mouth [place] 00 every 6 Medical (six) Branch hours as needed for Pain (scale 4-6). ibuprofen 2020-07 Yes [id number] 600mg Take 1 [facility] 600 mg 07-30 [id number] tablet by ity of tablet 00:00: mouth [place] 00 every 6 Medical (six) Branch hours as needed for Pain (scale 4-6). ibuprofen 2020-073- No [id number] 600mg Take 1 [facility] 600 mg 07-30 [id number] tablet by ity o f tablet 00:00: 00:00 mouth [place] 00 :00 every 6 Medical (six) Branch hours as needed for Pain (scale 4-6). traMADoL 50 2020-07- No [id number] 50mg Take 1 Uni vers mg tablet 07-30 tablet by ity of 00:00: 00:00 [facility] 00 :00 every 6 Medical (six) [...] mcg/actuati 00 on nasal spray,suspe nsion Dose 1-0 No Unknown - 00:00: 00 Dose 1-0 No Unknown - 00:00: 00 Dose 1-0 No Unknown - 00:00: 00 Dose 1-0 No Unknown - 00:00: 00 Dose 1-0 No Unknown - 00:00: 00 Dose 1-0 No Unknown - 00:00: 00 benzonatate 1-0 No 1mg 200 [...] oral 00 syrup VASCEPA 1 2020-0 Yes [id number] TAKE 3 U nivers gram 9-10 CAPSULES ity of capsule 00:00: BY MOUTH [place] 00 EVERY DAY Medical Branch VASCEPA 1 2020-0 Yes [id number] TAKE 3 U nivers gram 9-10 CAPSULES ity of capsule 00:00: BY MOUTH [place] EVERY DAY Medical Branch VASCEPA 1 2020-0 Yes [id number] TAKE 3 U nivers gram 9-10 CAPSULES ity of capsule 00:00: BY MOUTH [place] EVERY DAY Medical Branch VASCEPA 1 2020-0 Yes [id number] TAKE 3 U nivers gram 9-10 CAPSULES ity of capsule 00:00: BY MOUTH [place] EVERY DAY Medical Branch VASCEPA 1 2020-0 Yes [id number] TAKE 3 U nivers gram 9-10 CAPSULES ity of capsule 00:00: BY MOUTH [place] EVERY DAY Medical Branch VASCEPA 1 2020-0 Yes [id number] TAKE 3 U nivers gram 9-10 CAPSULES ity of capsule 00:00: BY MOUTH [place] EVERY DAY Medical Branch VASCEPA 1 2020-0 Yes [id number] TAKE 3 U nivers gram 9-10 CAPSULES ity of capsule 00:00: BY MOUTH [place] EVERY DAY Medical Branch VASCEPA 1 2020-0 Yes [id number] TAKE 3 U nivers gram 9-10 CAPSULES ity of capsule 00:00: BY MOUTH [place] EVERY DAY Medical Branch VASCEPA 1 2020-0 Yes [id number] TAKE 3 U nivers gram 9-10 CAPSULES ity of capsule 00:00: BY MOUTH [place] EVERY DAY Medical Branch VASCEPA 1 2020-0 Yes [id number] TAKE 3 U nivers gram 9-10 CAPSULES ity of capsule 00:00: BY MOUTH [place] EVERY DAY Medical Branch azithromyci 1-0 No [...] n 250 mg 9-10 tablet 00:00: 00 VASCEPA 1 1-0 2023- No [id number] TAKE 3 Univers gram 9-10 07-03 CAPSULES [...] DAILY 00:00: UNTIL 00 FINISHED. TAKE 1 2020-0 No TABLET 8-06 TWICE DAILY 00:00: UNTIL 00 FINISHED. triamcinolo 2020-0 No % ne 8-04 acetonide 00:00: 0.1 [...] 100 mg 8-04 capsule 00:00: 00 Dose 1-0 No Unknown 8-04 00:00: 00 Dose 1-0 No Unknown 8-04 00:00: 00 Dose 1-0 No Unknown 8-04 00:00: 00 Dose 1-0 [...] 00:00: insulin 100 00 unit/mL (3 mL) [facility] alogliptin 1-0 No 1mg [...] 00:00: insulin 100 00 unit/mL (3 mL) [facility] pen alogliptin 1-0 No 1mg [...] 6- 00:00: 00 Dose 2021-0 No Unknown 6-23 [...] 2021-0 No Unknown 6-10 00:00: 00 gabapentin 1-0 [...] 00 nded release icosapent 2020-0 2020- No [id number] 3g Take 3 Univers ethyL 6-02 09-10 capsules ity of (VASCEPA) 1 00:00: 00:00 by mouth [place] gram 00 :00 daily. Medical capsule Branch icosapent 2020-0 2020- No [id number] 3g Take 3 Univers ethyL 6-02 09-10 [...] 6- 00:00: 00 Dose 2020-0 No Unknown 6-01 00:00: 00 Lactobacill 2020-0 Yes Take by Uni vers us 5-27 mouth. ity of acidophilus 22:32: [place] (PROBIOTIC 10 Medical ORAL) [place] MULTIVITAMI Yes Take by Uni vers N ORAL 5-27 mouth. ity of 22:32: [place] [address] Medical Branch multivitami Yes Take by Un fabiana n with 5-27 mouth. ity of minerals 22:32: [place] (HAIR,SKIN 10 Medical AND NAILS Branch ORAL) Lactobacill Yes Take by Uni vers us 5-27 mouth. ity of acidophilus 17:32: [place] (PROBIOTIC 10 Medical ORAL) Branch MULTIVITAMI Yes Take by Uni vers N ORAL 5-27 mouth. ity of 17:32: [place] [address] Medical Branch multivitami Yes Take by Uni vers n with 5-27 mouth. ity of minerals 17:32: [place] (HAIR,SKIN 10 Medical AND NAILS Branch ORAL) Lactobacill 2020-0 Yes Take by Uni vers us 5-27 mouth. ity of acidophilus 17:32: [place] (PROBIOTIC 10 Medical ORAL) Branch MULTIVITAMI 0 Yes Take by Uni vers N ORAL 5-27 mouth. ity of 17:32: [place] [address] Medical Branch multivitami 2020-0 Yes Take by Uni vers n with 5-27 mouth. ity of minerals 17:32: [place] (HAIR,SKIN 10 Medical AND NAILS Branch ORAL) Lactobacill 2020-0 Yes Take by Uni vers us 5-27 mouth. ity of acidophilus 17:32: [place] (PROBIOTIC 10 Medical ORAL) Branch MULTIVITAMI 0 Yes Take by Uni vers N ORAL 5-27 mouth. ity of 17:32: [place] [address] Medical Branch multivitami 0 Yes Take by Uni vers n with 5-27 mouth. ity of minerals 17:32: [place] (HAIR,SKIN 10 Medical AND NAILS Branch ORAL) Lactobacill 0 Yes Take by Uni vers us 5-27 mouth. ity of acidophilus 17:32: [place] (PROBIOTIC 10 Medical ORAL) Branch MULTIVITAMI Yes Take by Uni vers N ORAL 5-27 mouth. ity of 17:32: [place] [address] Medical Branch multivitami 2020-0 Yes Take by Uni vers n with 5-27 mouth. ity of minerals 17:32: [place] (HAIR,SKIN 10 Medical AND NAILS Branch ORAL) Lactobacill 2020-0 Yes Take by Uni vers us 5-27 mouth. ity of acidophilus 17:32: [place] (PROBIOTIC 10 Medical ORAL) Branch MULTIVITAMI 202-0 Yes Take by Uni vers N ORAL 5-27 mouth. ity of 17:32: [place] [address] Medical Branch multivitami 2020-0 Yes Take by Uni vers n with 5-27 mouth. ity of minerals 17:32: [place] (HAIR,SKIN 10 Medical AND NAILS Branch ORAL) Lactobacill 2020-0 Yes Take by Uni vers us 5-27 mouth. ity of acidophilus 17:32: [place] (PROBIOTIC 10 Medical ORAL) Branch MULTIVITAMI 0 Yes Take by Uni vers N ORAL 5-27 mouth. ity of 17:32: [place] 10 Medical Branch multivitami 2020-0 Yes Take by Uni vers n with 12-04 mouth. ity of minerals 17:32: [place] (HAIR,SKIN 10 Medical AND NAILS Branch ORAL) midodrine 5 2020-0 1- No [id number] 5mg Take 1 Univers mg tablet 12-04 tablet by ity of 00:00: 04:59 mouth 3 [place] 00 :00 (three) Medical times Branch daily for 30 days. Diflucan 2020-0 No 1mg 150 mg 5-18 [...] 5-02 tablet by ity of 00:00: mouth [place] (two) Medical times Branch daily with meals. glimepiride 2021-0 Yes 4mg Take 1 Univ ers 4 mg tablet 5-02 tablet by ity of 00:00: mouth 2 [place] (two) Medical times Branch daily with meals. glimepiride 2021-0 Yes 4mg Take 1 Univ ers 4 mg tablet 5-02 tablet by ity of 00:00: mouth 2 [place] (two) Medical times Branch daily with meals. glimepiride 2021-0 Yes 4mg Take 1 Univ ers 4 mg tablet 5-02 tablet by ity of 00:00: mouth 2 [place] (two) Medical times Branch daily with meals. glimepiride 2021-0 Yes 4mg Take 1 Univ ers 4 mg tablet 5-02 tablet by ity of 00:00: mouth 2 [place] (two) Medical times Branch daily with meals. [...] 5-02 tablet by ity of 00:00: mouth [place] (two) Medical times Branch daily with meals. glimepiride 2020-0 Yes 4mg Take 1 Univ ers 4 mg tablet 5-02 tablet by ity of 00:00: mouth [place] (two) Medical times Branch daily with meals. glimepiride 2020-0 Yes 4mg Take 1 Univ ers 4 mg tablet 5-02 tablet by ity of 00:00: mouth [place] (two) Medical times Branch daily with meals. glimepiride 2020-0 2023- No 4mg Take 1 Uni vers 4 mg tablet 5-02 07-03 tablet by it y of 00:00: 00:00 mouth 2 [place] 00 :00 (two) Medical times Branch daily with meals. glimepiride 2021-0 2023- No 4mg Take 1 Uni vers 4 mg tablet 5-02 07-03 tablet by it y of 00:00: 00:00 mouth 2 [place] 00 :00 (two) Medical times Branch daily with meals. fenofibrate 2020-0 Yes 134mg Take 1 Uni vers micronized 4-30 capsule by ity of 134 mg 00:00: mouth [place] capsule 00 daily. Medical Branch metFORMIN 2020-0 Yes [id number] 1000mg Take 1 Univers 1,000 mg 4-30 tablet by ity of tablet 00:00: mouth [place] (two) Medical times Branch daily with meals. blood sugar 0 Yes [id number] Use daily Univers diagnostic 4-30 Dx E11.65 ity of (ONETOUCH 00:00: [place] VERIO TEST 00 Medical STRIPS) Branch strip lancets 2020-0 Yes [id number] Use daily Univers (ONE TOUCH 4-30 Dx E11.65 ity of DELICA) 33 00:00: [facility] 00 Medical Branch gabapentin 2020-0 Yes [id number] 600mg Take 1 [facility] 600 mg 4-30 tablet by ity of tablet 00:00: mouth 2 (two) Medical times Branch daily. lisinopriL 0 Yes [id number] 2.5mg Take 1 [facility] 2.5 mg 4-30 tablet by ity of tablet 00:00: mouth [place] 00 daily. Medical Branch insulin 0 Yes [id number] 35U inject 35 [facility] degludec 4-30 Units ity of (TRESIBA 00:00: [place] the [place] FLEXTOUCH 00 skin 2 Medical U-100) 100 (two) Branch unit/mL (3 times mL) InPn daily. fenofibrate Yes 134mg Take 1 Uni vers micronized 4-30 capsule by ity of 134 mg 00:00: mouth [place] capsule 00 daily. Medical Branch metFORMIN Yes [id number] 1000mg Take 1 Univers 1,000 mg 4-30 tablet by ity of tablet 00:00: mouth 2 [place] (two) Medical times Branch daily with meals. blood sugar Yes [id number] Use daily Univers diagnostic 4-30 Dx E11.65 ity of (ONETOUCH 00:00: [place] VERIO TEST 00 Medical STRIPS) Branch strip lancets Yes [id number] Use daily Univers (ONE TOUCH 4-30 Dx E11.65 ity of DELICA) 33 00:00: [facility] 00 Medical Branch lisinopriL 2020-0 Yes [id number] 2.5mg Take 1 Univers 2.5 mg 4-30 tablet by ity of tablet 00:00: mouth [place] 00 daily. Medical Branch atorvastati 0 Yes 40mg Take 1 Univ ers n 40 mg 4-30 tablet by ity of tablet 00:00: mouth at [place] 00 bedtime. Medical Branch fenofibrate 0 Yes 134mg Take 1 Uni vers micronized 4-30 capsule by ity of 134 mg 00:00: mouth [place] capsule 00 daily. Medical Branch metFORMIN Yes [id number] 1000mg Take 1 Univers 1,000 mg 4-30 tablet by ity of tablet 00:00: mouth 2 [place] (two) Medical times Branch daily with meals. blood sugar 2020-0 Yes [id number] Use daily Univers diagnostic 4-30 Dx E11.65 ity of (ONETOUCH 00:00: [place] VERIO TEST 00 Medical STRIPS) Branch strip lancets 2020-0 Yes [id number] Use daily Univers (ONE TOUCH 4-30 Dx E11.65 ity of DELICA) 33 00:00: [place] [facility] 00 Medical Branch gabapentin 2020-0 Yes [id number] 600mg Take 1 [facility] 600 mg 4-30 tablet by ity of tablet 00:00: mouth 2 [place] (two) Medical times Branch daily. lisinopriL 2020-0 Yes [id number] 2.5mg Take 1 Univers 2.5 mg 4-30 tablet by ity of tablet 00:00: mouth [place] 00 daily. Medical Branch fenofibrate 2020-0 Yes 134mg Take 1 Uni vers micronized 4-30 capsule by ity of 134 mg 00:00: mouth [place] capsule 00 daily. Medical Branch metFORMIN 2020-0 Yes [id number] 1000mg Take 1 [facility] 1,000 mg 4-30 tablet by ity of tablet 00:00: mouth 2 (two) Medical times Branch daily with meals. blood sugar 2020-0 Yes [id number] Use daily [facility] diagnostic 4-30 Dx E11.65 ity of (ONETOUCH 00:00: [place] VERIO TEST 00 Medical STRIPS) Branch strip lancets 2020-0 Yes [id number] Use daily Univers (ONE TOUCH 4-30 Dx E11.65 ity of DELICA) 33 00:00: [facility] 00 Medical Branch lisinopriL 2020-0 Yes [id number] 2.5mg Take 1 Univers 2.5 mg 4-30 tablet by ity of tablet 00:00: mouth [place] 00 daily. Medical Branch fenofibrate 2020-0 Yes 134mg Take 1 Uni vers micronized 4-30 capsule by ity of 134 mg 00:00: mouth [place] capsule 00 daily. Medical Branch metFORMIN 2020-0 Yes [id number] 1000mg Take 1 Univers 1,000 mg 4-30 tablet by ity of tablet 00:00: mouth 2 [place] (two) Medical times Branch daily with meals. blood sugar 2020-0 Yes [id number] Use daily Univers diagnostic 4-30 Dx E11.65 ity of (ONETOUCH 00:00: [place] VERIO TEST 00 Medical STRIPS) Branch strip lancets 2020-0 Yes [id number] Use daily Univers (ONE TOUCH 4-30 Dx E11.65 ity of DELICA) 33 00:00: [facility] Medical Branch lisinopriL 2020-0 Yes [id number] 2.5mg Take 1 Univers 2.5 mg 4-30 tablet by ity of tablet 00:00: mouth [place] 00 daily. Medical Branch fenofibrate 2020-0 Yes 134mg Take 1 Uni vers micronized 4-30 capsule by ity of 134 mg 00:00: mouth [place] capsule 00 daily. Medical Branch metFORMIN 2020-0 Yes [id number] 1000mg Take 1 Univers 1,000 mg 4-30 tablet by ity of tablet 00:00: mouth 2 [place] (two) Medical times Branch daily with meals. blood sugar 2020-0 Yes [id number] Use daily Univers diagnostic 4-30 Dx E11.65 ity of (ONETOUCH 00:00: [place] VERIO TEST 00 Medical STRIPS) Branch strip lancets 2020-0 Yes [id number] Use daily Univers (ONE TOUCH 4-30 Dx E11.65 ity of DELICA) 33 00:00: [facility] Medical Branch lisinopriL 2020-0 Yes [id number] 2.5mg Take 1 Univers 2.5 mg 4-30 tablet by ity of tablet 00:00: mouth [place] 00 daily. Medical Branch fenofibrate 2020-0 Yes 134mg Take 1 Uni vers micronized 4-30 capsule by ity of 134 mg 00:00: mouth [place] capsule 00 daily. Medical Branch metFORMIN 2020-0 Yes [id number] 1000mg Take 1 [facility] 1,000 mg 4-30 tablet by ity of tablet 00:00: mouth 2 [place] (two) Medical times Branch daily with meals. blood sugar 2020-0 Yes [id number] Use daily [facility] diagnostic 4-30 Dx E11.65 ity of (ONETOUCH 00:00: [place] VERIO TEST 00 Medical STRIPS) Branch strip lancets 2020-0 Yes [id number] Use daily Univers (ONE TOUCH 4-30 Dx E11.65 ity of DELICA) 33 00:00: [facility] Medical Branch lisinopriL 2020-0 Yes [id number] 2.5mg Take 1 Univers 2.5 mg 4-30 tablet by ity of tablet 00:00: mouth [place] 00 daily. Medical Branch fenofibrate Yes 134mg Take 1 Uni vers micronized 4-30 capsule by ity of 134 mg 00:00: mouth [place] capsule 00 daily. Medical Branch metFORMIN Yes [id number] 1000mg Take 1 Univers 1,000 mg 4-30 tablet by ity of tablet 00:00: mouth 2 [place] 00 (two) Medical times Branch daily with meals. blood sugar Yes [id number] Use daily [facility] diagnostic 4-30 Dx E11.65 ity of (ONETOUCH 00:00: [place] VERIO TEST 00 Medical STRIPS) Branch strip lancets Yes [id number] Use daily Univers (ONE TOUCH 4-30 Dx E11.65 ity of DELICA) 33 00:00: [place] [facility] 00 Medical Branch lisinopriL Yes [id number] 2.5mg Take 1 Univers 2.5 mg 4-30 tablet by ity of tablet 00:00: mouth [place] 00 daily. Medical Branch insulin Yes [id number] 35U inject 35 [facility] degludec 4-30 Units ity of (TRESIBA 00:00: [place] FLEXTOUCH 00 skin 2 Medical U-100) 100 (two) Branch unit/mL (3 times mL) InPn daily. atorvastati Yes 40mg Take 1 Univ ers n 40 mg 4-30 tablet by ity of tablet 00:00: mouth at [place] 00 bedtime. Medical Branch fenofibrate Yes 134mg Take 1 Uni vers micronized 4-30 capsule by ity of 134 mg 00:00: mouth [place] capsule 00 daily. Medical Branch metFORMIN Yes [id number] 1000mg Take 1 Univers 1,000 mg 4-30 tablet by ity of tablet 00:00: mouth 2 [place] 00 (two) Medical times Branch daily with meals. blood sugar Yes [id number] Use daily [facility] diagnostic 4-30 Dx E11.65 ity of (ONETOUCH 00:00: [place] VERIO TEST 00 Medical STRIPS) Branch strip lancets Yes [id number] Use daily Univers (ONE TOUCH 4-30 Dx E11.65 ity of DELICA) 33 00:00: [place] gauge Misc 00 Medical Branch gabapentin 2020-0 Yes [id number] 600mg Take 1 [facility] 600 mg 4-30 tablet by ity of tablet 00:00: mouth 2 [place] (two) Medical times Branch daily. lisinopriL 2020-0 Yes [id number] 2.5mg Take 1 [facility] 2.5 mg 4-30 tablet by ity of tablet 00:00: mouth [place] 00 daily. Medical Branch insulin 2020-0 Yes [id number] 35U inject 35 [facility] degludec 4-30 Units ity of (TRESIBA 00:00: [place] FLEXTOUCH 00 skin 2 Medical U-100) 100 (two) Branch unit/mL (3 times mL) InPn daily. atorvastati Yes 40mg Take 1 Univ ers n 40 mg 4-30 tablet by ity of tablet 00:00: mouth at [place] 00 bedtime. Medical Branch fenofibrate 0 Yes 134mg Take 1 Uni vers micronized 4-30 capsule by ity of 134 mg 00:00: mouth [facility] 00 daily. Medical Branch metFORMIN Yes [id number] 1000mg Take 1 Univers 1,000 mg 4-30 tablet by ity of tablet 00:00: mouth [place] (two) Medical times Branch daily with meals. blood sugar 0 Yes [id number] Use daily Univers diagnostic 4-30 Dx E11.65 ity of (ONETOUCH 00:00: [place] VERIO TEST 00 Medical STRIPS) Branch strip lancets 2020-0 Yes [id number] Use daily Univers (ONE TOUCH 4-30 Dx E11.65 ity of DELICA) 33 00:00: [facility] 00 Medical Branch gabapentin 2020-0 Yes [id number] 600mg Take 1 [facility] 600 mg 4-30 tablet by ity of tablet 00:00: mouth 2 [place] (two) Medical times Branch daily. lisinopriL 2020-0 Yes [id number] 2.5mg Take 1 [facility] 2.5 mg 4-30 tablet by ity of tablet 00:00: mouth [place] 00 daily. Medical Branch insulin 2020-0 Yes [id number] 35U inject 35 [facility] degludec 4-30 Units ity of (TRESIBA 00:00: [place] FLEXTOUCH 00 skin 2 Medical U-100) 100 (two) Branch unit/mL (3 times mL) InPn daily. atorvastati Yes 40mg Take 1 Univ ers n 40 mg 4-30 tablet by ity of tablet 00:00: mouth at [place] 00 bedtime. Medical Branch fenofibrate Yes 134mg Take 1 Uni vers micronized 4-30 capsule by ity of 134 mg 00:00: mouth [place] capsule 00 daily. Medical Branch metFORMIN Yes [id number] 1000mg Take 1 Univers 1,000 mg 4-30 tablet by ity of tablet 00:00: mouth 2 [place] 00 (two) Medical times Branch daily with meals. blood sugar Yes [id number] Use daily [facility] diagnostic 4-30 Dx E11.65 ity of (ONETOUCH 00:00: [place] VERIO TEST 00 Medical STRIPS) Branch strip lancets Yes [id number] Use daily Univers (ONE TOUCH 4-30 Dx E11.65 ity of DELICA) 33 00:00: [place] gauge Misc 00 Medical Branch gabapentin Yes [id number] 600mg Take 1 [facility] 600 mg 4-30 tablet by ity of tablet 00:00: mouth 2 [place] 00 (two) Medical times Branch daily. lisinopriL Yes [id number] 2.5mg Take 1 [facility] 2.5 mg 4-30 tablet by ity of tablet 00:00: mouth [place] 00 daily. Medical Branch insulin Yes [id number] 35U inject 35 [facility] degludec 4-30 Units ity of (TRESIBA 00:00: [place] FLEXTOUCH 00 skin 2 Medical U-100) 100 (two) Branch unit/mL (3 times mL) InPn daily. atorvastati Yes 40mg Take 1 Univ ers n 40 mg 4-30 tablet by ity of tablet 00:00: mouth at [place] 00 bedtime. Medical Branch fenofibrate Yes 134mg Take 1 Uni vers micronized 4-30 capsule by ity of 134 mg 00:00: mouth [place] capsule 00 daily. Medical Branch metFORMIN Yes [id number] 1000mg Take 1 [facility] 1,000 mg 4-30 tablet by ity of tablet 00:00: mouth 2 [place] (two) Medical times Branch daily with meals. blood sugar 0 Yes [id number] Use daily [facility] diagnostic 4-30 Dx E11.65 ity of (ONETOUCH 00:00: [place] VERIO TEST 00 Medical STRIPS) Branch strip lancets 2020-0 Yes [id number] Use daily Univers (ONE TOUCH 4-30 Dx E11.65 ity of DELICA) 33 00:00: [facility] Medical Branch gabapentin 0 Yes [id number] 600mg Take 1 [facility] 600 mg 4-30 tablet by ity of tablet 00:00: mouth 2 [place] [place] (two) Medical times Branch daily. lisinopriL Yes [id number] 2.5mg Take 1 [facility] 2.5 mg 4-30 tablet by ity of tablet 00:00: mouth [place] 00 daily. Medical Branch insulin Yes [id number] 35U inject 35 Univers degludec 4-30 Units ity of (TRESIB[place] 00:[place] FLE[place] 00 skin 2 Medical U-100) 100 (two) Branch unit/mL (3 times mL) InPn daily. atorvastati Yes 40mg Take 1 Univ ers n 40 mg 4-30 tablet by ity of tablet 00:00: mouth at [place] 00 bedtime. Medical Branch fenofibrate 0 Yes 134mg Take 1 Uni vers micronized 4-30 capsule by ity of 134 mg 00:00: mouth [place] capsule 00 daily. Medical Branch metFORMIN Yes [id number] 1000mg Take 1 Univers 1,000 mg 4-30 tablet by ity of tablet 00:00: mouth [place] (two) Medical times Branch daily with meals. blood sugar 0 Yes [id number] Use daily Univers diagnostic 4-30 Dx E11.65 ity of (ONETOUCH 00:00: [place] VERIO TEST 00 Medical STRIPS) Branch strip lancets 2020-0 Yes [id number] Use daily Univers (ONE TOUCH 4-30 Dx E11.65 ity of DELICA) 33 00:00: [facility] 00 Medical Branch gabapentin 2020-0 Yes [id number] 600mg Take 1 Univers 600 mg 4-30 tablet by ity of tablet 00:00: mouth 2 [place] (two) Medical times Branch daily. lisinopriL Yes [id number] 2.5mg Take 1 Univers 2.5 mg 4-30 tablet by ity of tablet 00:00: mouth [place] 00 daily. Medical Branch insulin Yes [id number] 35U inject 35 [facility] degludec 4-30 Units ity of (TRESIBA 00:[place]LE[place] 00 skin 2 Medical U-100) 100 (two) Branch unit/mL (3 times mL) InPn daily. atorvastati Yes 40mg Take 1 Univ ers n 40 mg 4-30 tablet by ity of tablet 00:00: mouth at [place] 00 bedtime. Medical Branch fenofibrate Yes 134mg Take 1 Uni vers micronized 4-30 capsule by ity of 134 mg 00:00: mouth [place] capsule 00 daily. Medical Branch metFORMIN Yes [id number] 1000mg Take 1 Univers 1,000 mg 4-30 tablet by ity of tablet 00:00: mouth (two) Medical times Branch daily with meals. blood sugar Yes [id number] Use daily Univers diagnostic 4-30 Dx E11.65 ity of (ONETOUCH 00:00: [place] VERIO TEST 00 Medical STRIPS) Branch strip lancets Yes [id number] Use daily Univers (ONE TOUCH 4-30 Dx E11.65 ity of DELICA) 33 00:00: [place] gauge Misc 00 Medical Branch gabapentin Yes [id number] 600mg Take 1 Univers 600 mg 4-30 tablet by ity of tablet 00:00: mouth 2 00 (two) Medical times Branch daily. lisinopriL Yes [id number] 2.5mg Take 1 Univers 2.5 mg 4-30 tablet by ity of tablet 00:00: mouth [place] 00 daily. Medical Branch fenofibrate Yes 134mg Take 1 Uni vers micronized 4-30 capsule by ity of 134 mg 00:00: mouth [place] capsule 00 daily. Medical Branch metFORMIN Yes [id number] 1000mg Take 1 Univers 1,000 mg 4-30 tablet by ity of tablet 00:00: mouth 2 [place] 00 (two) Medical times Branch daily with meals. blood sugar Yes [id number] Use daily Univers diagnostic 4-30 Dx E11.65 ity of (ONETOUCH 00:00: [place] VERIO TEST 00 Medical STRIPS) Branch strip lancets 2020-0 Yes [id number] Use daily Univers (ONE TOUCH 4-30 Dx E11.65 ity of DELICA) 33 00:00: [facility] Medical Branch gabapentin 2020-0 Yes [id number] 600mg Take 1 Univers 600 mg 4-30 tablet by ity of tablet 00:00: mouth 2 (two) Medical times Branch daily. lisinopriL 2020-0 Yes [id number] 2.5mg Take 1 Univers 2.5 mg 4-30 tablet by ity of tablet 00:00: mouth [place] 00 daily. Medical Branch fenofibrate 2020-0 Yes 134mg Take 1 Uni vers micronized 4-30 capsule by ity of 134 mg 00:00: mouth [place] capsule 00 daily. Medical Branch metFORMIN 2020-0 Yes [id number] 1000mg Take 1 Univers 1,000 mg 4-30 tablet by ity of tablet 00:00: mouth [place] (two) Medical times Branch daily with meals. blood sugar 0 Yes [id number] Use daily Univers diagnostic 4-30 Dx E11.65 ity of (ONETOUCH 00:00: [place] VERIO TEST 00 Medical STRIPS) Branch strip lancets 2020-0 Yes [id number] Use daily Univers (ONE TOUCH 4-30 Dx E11.65 ity of DELICA) 33 00:00: [facility] Medical Branch gabapentin 2020-0 Yes [id number] 600mg Take 1 Univers 600 mg 4-30 tablet by ity of tablet 00:00: mouth 2 [place] (two) Medical times Branch daily. lisinopriL 2020-0 Yes [id number] 2.5mg Take 1 Univers 2.5 mg 4-30 tablet by ity of tablet 00:00: mouth [place] 00 daily. Medical Branch gabapentin 2020-0 3- No [id number] 600mg Take 1 Univers 600 mg 4-30 07-03 tablet by ity of tablet 00:00: 00:00 mouth 2 [place] 00 :00 (two) Medical times Branch daily. gabapentin 2020-0 3- No [id number] 600mg Take 1 [facility] 600 mg 4-30 07-03 tablet by ity of tablet 00:00: 00:00 mouth 2 [place] 00 :00 (two) Medical times Branch daily. insulin 2022- No [id number] 35U inject 35 Univers degludec 4-30 02-20 [...] :00 bedtime. Medical Branch insulin 2022- No [id number] 35U inject 35 Univers degludec 4-30 02-20 Units ity of (TRESIBA 00:00: 00:00 under the [place] FLEXTOUCH 00 :00 skin 2 Medical U-100) 100 (two) Branch unit/mL (3 times mL) InPn daily. atorvastati 2022- No 40mg Take 1 Uni vers n 40 mg 4-30 02-20 tablet by ity of tablet 00:00: 00:00 mouth at [place] 00 :00 bedtime. Medical Branch glimepiride 1-0 [...] s pen injector Victoza 2021-0 No (18 3-Christofer 0.6 3-18 [...] 00 mL) subcutaneou s pen injector Dose 2021-0 No Unknown 3-18 00:00: 00 [place] 1-0 [...] Take by Met hodi SUNNY/FA/GUAR 5-14 mouth. [facility] 11:53: Hospita (ONE-A-DAY 29 l WOMEN'S ACTIVE ORAL) MV,CA,MIN/I 2020-0 Yes Take by Met hodi SUNNY/FA/GUAR 5-14 mouth. [facility] 11:53: Hospita (ONE-A-DAY 29 l WOMEN'S ACTIVE ORAL) MV,CA,MIN/I 2020-0 Yes Take by Met hodi SUNNY/FA/GUAR 5-14 mouth. [facility] 11:53: Hospita (ONE-A-DAY 29 l WOMEN'S ACTIVE ORAL) MV,CA,MIN/I 2020-0 Yes Take by Met hodi SUNNY/FA/GUAR 5-14 mouth. [facility] 11:53: Hospita (ONE-A-DAY 29 l WOMEN'S ACTIVE ORAL) MV,CA,MIN/I 2020-0 Yes Take by Met hodi SUNNY/FA/GUAR 5-14 mouth. [facility] 11:53: Hospita (ONE-A-DAY 29 l WOMEN'S ACTIVE ORAL) MV,CA,MIN/I 2020-0 Yes Take by Met hodi SUNNY/FA/GUAR 5-14 mouth. [facility] 11:53: Hospita (ONE-A-DAY 29 l WOMEN'S ACTIVE ORAL) MV,CA,MIN/I 2020-0 Yes Take by Met hodi SUNNY/FA/GUAR 5-14 mouth. [facility] 11:53: Hospita (ONE-A-DAY 29 l WOMEN'S ACTIVE ORAL) MV,CA,MIN/I 2020-0 Yes Take by Met hodi SUNNY/FA/GUAR 5-14 mouth. [facility] 11:53: Hospita (ONE-A-DAY 29 l WOMEN'S ACTIVE ORAL) MV,CA,MIN/I 2020-0 Yes Take by Met hodi SUNNY/FA/GUAR 5-14 mouth. [facility] 11:53: Hospita (ONE-A-DAY 29 l WOMEN'S ACTIVE ORAL) MV,CA,MIN/I 2020-0 Yes Take by Met hodi SUNNY/FA/GUAR 5-14 mouth. [facility] 11:53: Hospita (ONE-A-DAY 29 l WOMEN'S ACTIVE ORAL) MV,CA,MIN/I 2020-0 Yes Take by Met hodi SUNNY/FA/GUAR 5-14 mouth. [facility] 11:53: Hospita (ONE-A-DAY 29 l WOMEN'S ACTIVE ORAL) MV,CA,MIN/I 2020-0 Yes Take by Met hodi SUNNY/FA/GUAR 5-14 mouth. [facility] 11:53: Hospita (ONE-A-DAY 29 l WOMEN'S ACTIVE ORAL) MV,CA,MIN/I 2020-0 Yes Take by Met hodi SUNNY/FA/GUAR 5-14 mouth. [facility] 11:53: Hospita (ONE-A-DAY 29 l WOMEN'S ACTIVE ORAL) MV,CA,MIN/I 2020-0 Yes Take by Met hodi SUNNY/FA/GUAR 5-14 mouth. [facility] 11:53: Hospita (ONE-A-DAY 29 l WOMEN'S ACTIVE ORAL) MV,CA,MIN/I 2020-0 Yes Take by Met hodi SUNNY/FA/GUAR 5-14 mouth. [facility] 11:53: Hospita (ONE-A-DAY 29 l WOMEN'S ACTIVE ORAL) MV,CA,MIN/I 2020-0 Yes Take by Met hodi SUNNY/FA/GUAR 5-14 mouth. [facility] 11:53: Hospita (ONE-A-DAY 29 l WOMEN'S ACTIVE ORAL) MV,CA,MIN/I 2020-0 Yes Take by Met hodi SUNNY/FA/GUAR 5-14 mouth. [facility] 11:53: Hospita (ONE-A-DAY 29 l WOMEN'S ACTIVE ORAL) MV,CA,MIN/I 2020-0 Yes Take by Met hodi SUNNY/FA/GUAR 5-14 mouth. [facility] 11:53: Hospita (ONE-A-DAY 29 l WOMEN'S ACTIVE ORAL) MV,CA,MIN/I 2020-0 Yes Take by Met hodi SUNNY/FA/GUAR 5-14 mouth. [facility] 11:53: Hospita (ONE-A-DAY 29 l WOMEN'S ACTIVE ORAL) MV,CA,MIN/I 2020-0 Yes Take by Met hodi SUNNY/FA/GUAR 5-[address] [facility] 11:53: Hospita (ONE-A-DAY 29 l WOMEN'S ACTIVE ORAL) MV,CA,MIN/I 2020-0 Yes Take by Met hodi SUNNY/FA/GUAR 5-[address] [facility] 11:53: Hospita (ONE-A-DAY 29 l WOMEN'S ACTIVE ORAL) MV,CA,MIN/I 2020-0 Yes Take by Met hodi SUNNY/FA/GUAR 5-14 mouth. [facility] 11:53: Hospita (ONE-A-DAY 29 l WOMEN'S ACTIVE ORAL) MV,CA,MIN/I 2020-0 Yes Take by Met hodi SUNNY/FA/GUAR 5-14 mouth. [facility] 11:53: Hospita (ONE-A-DAY 29 l WOMEN'S ACTIVE ORAL) MV,CA,MIN/I 2020-0 Yes Take by Met hodi SUNNY/FA/GUAR 5-14 mouth. [facility] 11:53: Hospita (ONE-A-DAY 29 l WOMEN'S ACTIVE [...] tablet 5-12 00:00: 00 nystatin-tr 2020-0 Yes [id number] Q.25D Apply Methodi iamcinolone 4-[address] (MYCOLOG 00:00: 4 (four) Hospi ta II) 00 times a l 100,000-0.1 day as unit/g-% needed cream (vaginal itching or infection) . To outer vagina nystatin-tr 2020-0 Yes [id number] Q.25D Apply [facility]i iamcinolone 4-[address] (MYCOLOG 00:00: 4 (four) Hospi ta II) 00 times a l 100,000-0.1 day as unit/g-% needed cream (vaginal itching or infection) . To outer vagina nystatin-tr 2020-0 Yes [id number] Q.25D Apply [facility]i iamcinolone 4-[address] (MYCOLOG 00:00: 4 (four) Hospi ta II) 00 times a l 100,000-0.1 day as unit/g-% needed cream (vaginal itching or infection) . To outer vagina nystatin-tr 2020-0 Yes [id number] Q.25D Apply [facility]i iamcinolone 4-[address] (MYCOLOG 00:00: 4 (four) Hospi ta II) 00 times a l 100,000-0.1 day as unit/g-% needed cream (vaginal itching or infection) . To outer vagina nystatin-tr 2020-0 Yes [id number] Q.25D Apply Methodi iamcinolone 4-[address] (MYCOLOG 00:00: 4 (four) Hospi ta II) 00 times a l 100,000-0.1 day as unit/g-% needed cream (vaginal itching or infection) . To outer vagina nystatin-tr 2020-0 Yes [id number] Q.25D Apply [facility]i iamcinolone 4-[address] (MYCOLOG 00:00: 4 (four) Hospi ta II) 00 times a l 100,000-0.1 day as unit/g-% needed cream (vaginal itching or infection) . To outer vagina nystatin-tr 2020-0 Yes [id number] Q.25D Apply [facility]i iamcinolone 4-[address] (MYCOLOG 00:00: 4 (four) Hospi ta II) 00 times a l 100,000-0.1 day as unit/g-% needed cream (vaginal itching or infection) . To outer vagina nystatin-tr 2020-0 Yes [id number] Q.25D Apply [facility]i iamcinolone 4-[address] (MYCOLOG 00:00: 4 (four) Hospi ta II) 00 times a l 100,000-0.1 day as unit/g-% needed cream (vaginal itching or infection) . To outer vagina nystatin-tr 2020-0 Yes [id number] Q.25D Apply Methodi iamcinolone 4-[address] (MYCOLOG 00:00: 4 (four) Hospi ta II) 00 times a l 100,000-0.1 day as unit/g-% needed cream (vaginal itching or infection) . To outer vagina nystatin-tr 2020-0 Yes [id number] Q.25D Apply [facility] iamcinolone 4-[address] (MYCOLOG 00:00: 4 (four) Hospi ta II) 00 times a l 100,000-0.1 day as unit/g-% needed cream (vaginal itching or infection) . To outer vagina nystatin-tr 2020-0 Yes [id number] Q.25D Apply [facility]i iamcinolone 4-[address] (MYCOLOG 00:00: 4 (four) Hospi ta II) 00 times a l 100,000-0.1 day as unit/g-% needed cream (vaginal itching or infection) . To outer vagina nystatin-tr 2020-0 Yes [id number] Q.25D Apply Methodi iamcinolone 4-[address] (MYCOLOG 00:00: 4 (four) Hospi ta II) 00 times a l 100,000-0.1 day as unit/g-% needed cream (vaginal itching or infection) . To outer vagina nystatin-tr 2020-0 Yes [id number] Q.25D Apply [facility]i iamcinolone 4-[address] (MYCOLOG 00:00: 4 (four) Hospi ta II) 00 times a l 100,000-0.1 day as unit/g-% needed cream (vaginal itching or infection) . To outer vagina nystatin-tr 2020-0 Yes [id number] Q.25D Apply [facility]i iamcinolone 4-[address] (MYCOLOG 00:00: 4 (four) Hospi ta II) 00 times a l 100,000-0.1 day as unit/g-% needed cream (vaginal itching or infection) . To outer vagina nystatin-tr 2020-0 Yes [id number] Q.25D Apply [facility]i iamcinolone 4-[address] (MYCOLOG 00:00: 4 (four) Hospi ta II) 00 times a l 100,000-0.1 day as unit/g-% needed cream (vaginal itching or infection) . To outer vagina nystatin-tr 2020-0 Yes [id number] Q.25D Apply [facility]i iamcinolone 4-[address] (MYCOLOG 00:00: 4 (four) Hospi ta II) 00 times a l 100,000-0.1 day as unit/g-% needed cream (vaginal itching or infection) . To outer vagina nystatin-tr 2020-0 Yes [id number] Q.25D Apply Methodi iamcinolone 4-[address] (MYCOLOG 00:00: 4 (four) Hospi ta II) 00 times a l 100,000-0.1 day as unit/g-% needed cream (vaginal itching or infection) . To outer vagina nystatin-tr 2020-0 Yes [id number] Q.25D Apply Methodi iamcinolone 4-[address] (MYCOLOG 00:00: 4 (four) Hospi ta II) 00 times a l 100,000-0.1 day as unit/g-% needed cream (vaginal itching or infection) . To outer vagina nystatin-tr 2020-0 Yes [id number] Q.25D Apply Methodi iamcinolone 4-[address] (MYCOLOG 00:00: 4 (four) Hospi ta II) 00 times a l 100,000-0.1 day as unit/g-% needed cream (vaginal itching or infection) . To outer vagina nystatin-tr 2020-0 Yes [id number] Q.25D Apply Methodi iamcinolone 4-[address] (MYCOLOG 00:00: 4 (four) Hospi ta II) 00 times a l 100,000-0.1 day as unit/g-% needed cream (vaginal itching or infection) . To outer vagina nystatin-tr 2020-0 Yes [id number] Q.25D Apply Methodi iamcinolone 4-[address] (MYCOLOG 00:00: 4 (four) Hospi ta II) 00 times a l 100,000-0.1 day as unit/g-% needed cream (vaginal itching or infection) . To outer vagina nystatin-tr 2020-0 Yes [id number] Q.25D Apply Methodi iamcinolone 4-[address] (MYCOLOG 00:00: 4 (four) Hospi ta II) 00 times a l 100,000-0.1 day as unit/g-% needed cream (vaginal itching or infection) . To outer vagina nystatin-tr 2020-0 Yes [id number] Q.25D Apply Methodi iamcinolone 4-[address] (MYCOLOG 00:00: 4 (four) Hospi ta II) 00 times a l 100,000-0.1 day as unit/g-% needed cream (vaginal itching or infection) . To outer vagina nystatin-tr 2020-0 Yes [id number] Q.25D Apply [facility]i iamcinolone 4-[address] (MYCOLOG 00:00: 4 (four) Hospi ta II) 00 times a l 100,000-0.1 day as unit/g-% needed cream (vaginal itching or infection) . To outer vagina nystatin-tr 2020-0 Yes [id number] Q.25D Apply Methodi iamcinolone 4-[address] [...] subcutaneou s pen injector HEParin 2020-0 Yes [id number] Q7D Meth ally (porcine) 3-24 st injection 17:00: Hospita 20,000 00 l Units HEParin 2020-0 Yes [id number] Q7D Meth ally (porcine) 3-24 st injection 17:00: Hospita 20,000 00 l Units HEParin 2020-0 Yes [id number] Q7D Meth ally (porcine) 3-24 st injection 17:00: Hospita 20,000 00 l Units HEParin 2020-0 Yes [id number] Q7D Meth ally (porcine) 3-24 st injection 17:00: Hospita 20,000 00 l Units HEParin 2020-0 Yes [id number] Q7D Meth ally (porcine) 3-24 st injection 17:00: Hospita 20,000 00 l Units HEParin 2020-0 Yes [id number] Q7D Meth ally (porcine) 3-24 st injection 17:00: Hospita 20,000 00 l Units HEParin 2020-0 Yes [id number] Q7D Meth ally (porcine) 3-24 st injection 17:00: Hospita 20,000 00 l Units HEParin 2020-0 Yes [id number] Q7D Meth ally (porcine) 3-24 st injection 17:00: Hospita 20,000 00 l Units HEParin 2020-0 Yes [id number] Q7D Meth ally (porcine) 3-24 st injection 17:00: Hospita 20,000 00 l Units HEParin 2020-0 Yes [id number] Q7D Meth ally (porcine) 3-24 st injection 17:00: Hospita 20,000 00 l Units HEParin 2020-0 Yes [id number] Q7D Meth ally (porcine) 3-24 st injection 17:00: Hospita 20,000 00 l Units HEParin 2020-0 Yes [id number] Q7D Meth ally (porcine) 3-24 st injection 17:00: Hospita 20,000 00 l Units HEParin 2020-0 Yes [id number] Q7D Meth ally (porcine) 3-24 st injection 17:00: Hospita 20,000 00 l Units HEParin 2020-0 Yes [id number] Q7D Meth ally (porcine) 3-24 st injection 17:00: Hospita 20,000 00 l Units HEParin 2020-0 Yes [id number] Q7D Meth ally (porcine) 3-24 st injection 17:00: Hospita 20,000 00 l Units HEParin 2020-0 Yes [id number] Q7D Meth ally (porcine) 3-24 st injection 17:00: Hospita 20,000 00 l Units HEParin 2020-0 Yes [id number] Q7D Meth ally (porcine) 3-24 st injection 17:00: Hospita 20,000 00 l Units HEParin 2020-0 Yes [id number] Q7D Meth ally (porcine) 3-24 st injection 17:00: Hospita 20,000 00 l Units HEParin 2020-0 Yes [id number] Q7D Meth ally (porcine) 3-24 st injection 17:00: Hospita 20,000 00 l Units HEParin 2020-0 Yes [id number] Q7D Meth ally (porcine) 3-24 st injection 17:00: Hospita 20,000 00 l Units HEParin 2020-0 Yes [id number] Q7D Meth ally (porcine) 3-24 st injection 17:00: Hospita 20,000 00 l Units HEParin 2020-0 Yes [id number] Q7D Meth ally (porcine) 3-24 st injection 17:00: Hospita 20,000 00 l Units HEParin 2020-0 Yes [id number] Q7D Meth ally (porcine) 3-24 st injection 17:00: Hospita 20,000 00 l Units HEParin 2020-0 Yes [id number] Q7D Meth ally (porcine) 3-24 st injection 17:00: Hospita 20,000 00 l Units HEParin 2020-0 Yes [id number] Q7D Meth ally (porcine) 3-24 st injection 17:00: Hospita 20,000 00 l Units conjugated 2020-0 Yes [id number] Apply 0.5 [facility]i estrogens 3-[address] (Premarin) 00:00: vaginally Ho spita 0.625 00 either l mg/gram internally vaginal (applicato cream r) or with finger to outer vagina twice weekly at night conjugated 2020-0 Yes [id number] Apply 0.5 [facility]i estrogens 3-[address] (Premarin) 00:00: vaginally [facility] spita 0.625 00 either l mg/gram internally vaginal (applicato cream r) or with finger to outer vagina twice weekly at night conjugated 2020-0 Yes [id number] Apply 0.5 [facility]i estrogens 3-[address] (Premarin) 00:00: vaginally [facility] 0.625 00 either l mg/gram internally vaginal (applicato cream r) or with finger to outer vagina twice weekly at night conjugated 2020-0 Yes [id number] Apply 0.5 [facility]i estrogens 3-[address] (Premarin) 00:00: vaginally [facility] 0.625 00 either l mg/gram internally vaginal (applicato cream r) or with finger to outer vagina twice weekly at night conjugated 2020-0 Yes [id number] Apply 0.5 Methodi estrogens 3-[address] (Premarin) 00:00: vaginally [facility] 0.625 00 either l mg/gram internally vaginal (applicato cream r) or with finger to outer vagina twice weekly at night conjugated 2020-0 Yes [id number] Apply 0.5 Methodi estrogens 3-[address] (Premarin) 00:00: vaginally [facility] 0.625 00 either l mg/gram internally vaginal (applicato cream r) or with finger to outer vagina twice weekly at night conjugated 2020-0 Yes [id number] Apply 0.5 Methodi estrogens 3-[address] (Premarin) 00:00: vaginally [facility] 0.625 00 either l mg/gram internally vaginal (applicato cream r) or with finger to outer vagina twice weekly at night conjugated 2020-0 Yes [id number] Apply 0.5 [facility]i estrogens 3-[address] (Premarin) 00:00: vaginally [facility] spita 0.625 00 either l mg/gram internally vaginal (applicato cream r) or with finger to outer vagina twice weekly at night conjugated 2020-0 Yes [id number] Apply 0.5 [facility]i estrogens 3-[address] (Premarin) 00:00: vaginally [facility] spita 0.625 00 either l mg/gram internally vaginal (applicato cream r) or with finger to outer vagina twice weekly at night conjugated 2020-0 Yes [id number] Apply 0.5 [facility]i estrogens 3-[address] (Premarin) 00:00: vaginally [facility] 0.625 00 either l mg/gram internally vaginal (applicato cream r) or with finger to outer vagina twice weekly at night conjugated 2020-0 Yes [id number] Apply 0.5 Methodi estrogens 3-[address] (Premarin) 00:00: vaginally [facility] spita 0.625 00 either l mg/gram internally vaginal (applicato cream r) or with finger to outer vagina twice weekly at night conjugated 2020-0 Yes [id number] Apply 0.5 [facility]i estrogens 3-[address] (Premarin) 00:00: vaginally Ho spita 0.625 00 either l mg/gram internally vaginal (applicato cream r) or with finger to outer vagina twice weekly at night conjugated 2020-0 Yes [id number] Apply 0.5 Methodi estrogens 3-[address] (Premarin) 00:00: vaginally [facility] spita 0.625 00 either l mg/gram internally vaginal (applicato cream r) or with finger to outer vagina twice weekly at night conjugated 2020-0 Yes [id number] Apply 0.5 Methodi estrogens 3-[address] (Premarin) 00:00: vaginally Ho spita 0.625 00 either l mg/gram internally vaginal (applicato cream r) or with finger to outer vagina twice weekly at night conjugated 2020-0 Yes [id number] Apply 0.5 Methodi estrogens 3-[address] (Premarin) 00:00: vaginally [facility] spita 0.625 00 either l mg/gram internally vaginal (applicato cream r) or with finger to outer vagina twice weekly at night conjugated 2020-0 Yes [id number] Apply 0.5 [facility]i estrogens 3-[address] (Premarin) 00:00: vaginally Ho spita 0.625 00 either l mg/gram internally vaginal (applicato cream r) or with finger to outer vagina twice weekly at night conjugated 2020-0 Yes [id number] Apply 0.5 [facility]i estrogens 3-[address] (Premarin) 00:00: vaginally Ho spita 0.625 00 either l mg/gram internally vaginal (applicato cream r) or with finger to outer vagina twice weekly at night conjugated 2020-0 Yes [id number] Apply 0.5 Methodi estrogens 3-[address] (Premarin) 00:00: vaginally Ho spita 0.625 00 either l mg/gram internally vaginal (applicato cream r) or with finger to outer vagina twice weekly at night conjugated 2020-0 Yes [id number] Apply 0.5 Methodi estrogens 3-[address] (Premarin) 00:00: vaginally Ho spita 0.625 00 either l mg/gram internally vaginal (applicato cream r) or with finger to outer vagina twice weekly at night conjugated 2020-0 Yes [id number] Apply 0.5 [facility]i estrogens 3-[address] (Premarin) 00:00: vaginally Ho spita 0.625 00 either l mg/gram internally vaginal (applicato cream r) or with finger to outer vagina twice weekly at night conjugated 2020-0 Yes [id number] Apply 0.5 [facility] estrogens 3-[address] (Premarin) 00:00: vaginally Ho spita 0.625 00 either l mg/gram internally vaginal (applicato cream r) or with finger to outer vagina twice weekly at night conjugated 2020-0 Yes [id number] Apply 0.5 [facility] estrogens 3-[address] (Premarin) 00:00: vaginally Ho spita 0.625 00 either l mg/gram internally vaginal (applicato cream r) or with finger to outer vagina twice weekly at night conjugated 2020-0 Yes [id number] Apply 0.5 [facility] estrogens 3-[address] (Premarin) 00:00: vaginally Ho spita 0.625 00 either l mg/gram internally vaginal (applicato cream r) or with finger to outer vagina twice weekly at night conjugated 2020-0 Yes [id number] Apply 0.5 [facility]i estrogens 3-[address] (Premarin) 00:00: vaginally Ho spita 0.625 00 either l mg/gram internally vaginal (applicato cream r) or with finger to outer vagina twice weekly at night conjugated 2020-0 Yes [id number] Apply 0.5 Methodi estrogens 3-[address] [...] custom 2020-0 Yes [facility] Nv arethaodi compound - vaginal st 00:00: cream: 6% [...] daily. amb custom 2020-0 Yes [facility]v thodi compound 3- vaginal st 00:00: cream: 6% Hospita 00 gabapentin l , 2% Lidocaine, 2 % baclofen in water washable based. Apply 0.5 gram to outer vagina once or twice daily. FREESTYLE 2020-0 Yes [id number] 1{each} 1 Each [facility] BRENDA 14 3-03 every 14 ity of DAY SENSOR 00:00: (fourteen) [place] 00 days. Medical [facility] FREESTYLE 2020-0 Yes [id number] 1{each} 1 Each [facility] BRENDA 14 3-03 daily. ity of DAY READER 00:00: [place] [facility] [place] 00 Medical Branch FREESTYLE 2020-0 Yes [id number] 1{each} 1 Each [facility] BRENDA 14 3-03 every 14 ity of DAY SENSOR 00:00: (fourteen) [place] Kit 00 days. Medical [facility] FREESTYLE 2020-0 Yes [id number] 1{each} 1 Each [facility] BRENDA 14 3-03 daily. ity of DAY READER 00:00: [place] [facility] [place] 00 Medical Branch FREESTYLE 2020-0 Yes [id number] 1{each} 1 Each [facility] BRENDA 14 3-03 every 14 ity of DAY SENSOR 00:00: (fourteen) [place] Kit 00 days. Medical Branch FREESTYLE 2020-0 Yes [id number] 1{each} 1 Each [facility] BRENDA 14 3-03 daily. ity of DAY READER 00:00: [facility] 00 Medical Branch FREESTYLE 2020-0 Yes [id number] 1{each} 1 Each [facility] BRENDA 14 3-03 every 14 ity of DAY SENSOR 00:00: (fourteen) [place] Kit 00 days. Medical Branch FREESTYLE 2020-0 Yes [id number] 1{each} 1 Each [facility] BRENDA 14 3-03 daily. ity of DAY READER 00:00: [place] [facility] [place] 00 Medical Branch FREESTYLE 2020-0 Yes [id number] 1{each} 1 Each [facility] BRENDA 14 3-03 every 14 ity of DAY SENSOR 00:00: (fourteen) [place] Kit 00 days. Medical Branch FREESTYLE 2020-0 Yes [id number] 1{each} 1 Each Univers BRENDA 14 3-03 daily. ity of DAY READER 00:00: [place] [facility] [place] 00 Medical Branch FREESTYLE 2020-0 Yes [id number] 1{each} 1 Each [facility] BRENDA 14 3-03 every 14 ity of DAY SENSOR 00:00: [place]teen[place]. [facility] FREESTYLE 2020-0 Yes [id number] 1{each} 1 Each [facility] BRENDA 14 3-03 daily. ity of DAY READER 00:00: [place] [facility] [place] 00 Medical Branch FREESTYLE 2020-0 Yes [id number] 1{each} 1 Each [facility] BRENDA 14 3-03 every 14 ity of DAY SENSOR 00:00: [place]teen[place]. [facility] FREESTYLE 2020-0 Yes [id number] 1{each} 1 Each [facility] BRENDA 14 3-03 daily. ity of DAY READER 00:00: [place] [facility] [place] 00 Medical Branch FREESTYLE 2020-0 Yes [id number] 1{each} 1 Each [facility] BRENDA 14 3-03 every 14 ity of DAY SENSOR 00:00: [place]teen[place]. [facility] FREESTYLE 2020-0 Yes [id number] 1{each} 1 Each [facility] BRENDA 14 3-03 daily. ity of DAY READER 00:00: [facility] 00 Medical Branch FREESTYLE 2020-0 Yes [id number] 1{each} 1 Each [facility] BRENDA 14 3-03 every 14 ity of DAY SENSOR 00:00: ([place]teen[place] days. [facility] FREESTYLE 2020-0 Yes [id number] 1{each} 1 Each [facility] BRENDA 14 3-03 daily. ity of DAY READER 00:00: [place] [facility] [place] 00 Medical Branch FREESTYLE 2020-0 Yes [id number] 1{each} 1 Each [facility] BRENDA 14 3-03 every 14 ity of DAY SENSOR 00:00: ([place]teen[place] days. [facility] FREESTYLE 2020-0 Yes [id number] 1{each} 1 Each [facility] BRENDA 14 3-03 daily. ity of DAY READER 00:00: [place] [facility] [place] 00 Medical Branch FREESTYLE 2020-0 Yes [id number] 1{each} 1 Each [facility] BRENDA 14 3-03 every 14 ity of DAY SENSOR 00:00: ([place]teen[place] days. [facility] FREESTYLE 2020-0 Yes [id number] 1{each} 1 Each [facility] BRENDA 14 3-03 daily. ity of DAY READER 00:00: [place] [facility] [place] 00 Medical Branch FREESTYLE 2020-0 Yes [id number] 1{each} 1 Each [facility] BRENDA 14 3-03 every 14 ity of DAY SENSOR 00:00: ([place]teen[place] days. [facility] FREESTYLE 2020-0 Yes [id number] 1{each} 1 Each [facility] BRENDA 14 3-03 daily. ity of DAY READER 00:00: [facility] 00 Medical Branch FREESTYLE 2020-0 Yes [id number] 1{each} 1 Each [facility] BRENDA 14 3-03 every 14 ity of DAY SENSOR 00:00: ([place]teen[place] days. [facility] FREESTYLE 2020-0 Yes [id number] 1{each} 1 Each [facility] BRENDA 14 3-03 daily. ity of DAY READER 00:00: [facility] 00 Medical Branch FREESTYLE 2020-0 Yes [id number] 1{each} 1 Each [facility] BRENDA 14 3-03 every 14 ity of DAY SENSOR 00:00: ([place]teen[place] days. [facility] FREESTYLE 2020-0 Yes [id number] 1{each} 1 Each [facility] BRENDA 14 3-03 daily. ity of DAY READER 00:00: [facility] 00 Medical Branch FREESTYLE 2020-0 Yes [id number] 1{each} 1 Each [facility] BRENDA 14 3-03 every 14 ity of DAY SENSOR 00:00: (fourteen[place] days. [facility] FREESTYLE 2020-0 Yes [id number] 1{each} 1 Each [facility] BRENDA 14 3-03 daily. ity of DAY READER 00:00: [facility] 00 Medical Branch FREESTYLE 2020-0 Yes [id number] 1{each} 1 Each [facility] BRENDA 14 3-03 every 14 ity of DAY SENSOR 00:00: (fourteen[place] days. [facility] FREESTYLE 2020-0 Yes [id number] 1{each} 1 Each [facility] BRENDA 14 3-03 daily. ity of DAY READER 00:00: [facility] 00 Medical Branch Ozempic 2020-0 [...] tablet 2-30 00:00: 00 traMADol 2018-07 Yes [id number] 50mg Take 1 Uni vers (ULTRAM) 50 2-28 tablet by ity of mg tablet 00:00: mouth [place] 00 every 6 Medical (six) Branch hours as needed for Pain (scale 7-10). ondansetron 2018-07 Yes [id number] 4mg Take 1 Univers (ZOFRAN) 4 2-28 tablet by ity of mg tablet 00:00: mouth [place] 00 every 8 Medical (eight) Branch hours as needed for Nausea and Vomiting (N/V). ondansetron 2018-07 Yes [id number] 4mg Take 1 Univers (ZOFRAN) 4 2-28 tablet by ity of mg tablet 00:00: mouth [place] 00 every 8 Medical (eight) Branch hours as needed for Nausea and Vomiting (N/V). ondansetron 2018-07 Yes [id number] 4mg Take 1 Univers (ZOFRAN) 4 2-28 tablet by ity of mg tablet 00:00: mouth [place] 00 every 8 Medical (eight) Branch hours as needed for Nausea and Vomiting (N/V). ondansetron 2018-07 Yes [id number] 4mg Take 1 Univers (ZOFRAN) 4 2-28 tablet by ity of mg tablet 00:00: mouth [place] 00 every 8 Medical (eight) Branch hours as needed for Nausea and Vomiting (N/V). ondansetron 2018-07 Yes [id number] 4mg Take 1 Univers (ZOFRAN) 4 2-28 tablet by ity of mg tablet 00:00: mouth [place] 00 every 8 Medical (eight) Branch hours as needed for Nausea and Vomiting (N/V). ondansetron 2018-07 Yes [id number] 4mg Take 1 Univers (ZOFRAN) 4 2-28 tablet by ity of mg tablet 00:00: mouth [place] 00 every 8 Medical (eight) Branch hours as needed for Nausea and Vomiting (N/V). ondansetron 2018-07 Yes [id number] 4mg Take 1 Univers (ZOFRAN) 4 2-28 tablet by ity of mg tablet 00:00: mouth [place] 00 every 8 Medical (eight) Branch hours as needed for Nausea and Vomiting (N/V). ondansetron 2018-07- No [id number] 4mg Take 1 Univers (ZOFRAN) 4 2-28 02-16 tablet by ity of mg tablet 00:00: 00:00 mouth [place] 00 :00 every 8 Medical (eight) Branch hours as needed for Nausea and Vomiting (N/V). ondansetron 2018-07- No [id number] 4mg Take 1 Univers (ZOFRAN) 4 2-28 02-16 tablet by ity of mg tablet 00:00: 00:00 mouth [place] 00 :00 every 8 Medical (eight) Branch hours as needed for Nausea and Vomiting (N/V). traMADol 2018-07- No [id number] 50mg Take 1 [facility] (ULTRAM) 50 2-28 11-20 tablet by it y of mg tablet 00:00: 00:00 mouth [place] 00 :00 every 6 Medical (six) Branch hours as needed for Pain (scale 7-10). traMADol 2018-07- No [id number] 50mg Take 1 [facility] (ULTRAM) 50 [...] 2-19 tablet,exte 00:00: nded 00 release ibuprofen 2018- No 1mg 800 mg 2-19 tablet 00:00: 00 Contrave 2018-07 No 1mg mg-90 mg 2-19 tablet,exte 00:00: nded 00 release ibuprofen 2018- No 1mg 800 mg 2-19 tablet 00:00: [...] 1mg mg capsule 0-16 00:00: 00 triamcinolo 2018- No 1% ne 0-16 acetonide 00:00: 0.1 % 00 topical ointment ketoconazol 2018-07 No 1% e 2 % 0-16 shampoo 00:00: 00 Xenical 120 2018- No 1mg mg capsule 0-16 00:00: 00 Xenical 120 2018-07 No 1mg mg capsule 0-16 00:00: 00 triamcinolo 2018- No 1% ne 0-16 acetonide 00:00: 0.1 [...] mg capsule 00:00: 00 hydrOXYzine 2018- Yes [id number] 10mg Take 1 Univers 10 mg 9-13 tablet by ity of tablet 00:00: mouth [place] 00 every 6 Medical (six) Branch hours. hydrOXYzine Yes [id number] 10mg Take 1 Univers 10 mg 9-13 tablet by ity of tablet 00:00: mouth [place] 00 every 6 Medical (six) Branch hours. hydrOXYzine Yes [id number] 10mg Take 1 Univers 10 mg 9-13 tablet by ity of tablet 00:00: mouth [place] 00 every 6 Medical (six) Branch hours. hydrOXYzine Yes [id number] 10mg Take 1 Univers 10 mg 9-13 tablet by ity of tablet 00:00: mouth [place] 00 every 6 Medical (six) Branch hours. hydrOXYzine Yes [id number] 10mg Take 1 Univers 10 mg 9-13 tablet by ity of tablet 00:00: mouth [place] 00 every 6 Medical (six) Branch hours. hydrOXYzine Yes [id number] 10mg Take 1 Univers 10 mg 9-13 tablet by ity of tablet 00:00: mouth [place] 00 every 6 Medical (six) Branch hours. hydrOXYzine Yes [id number] 10mg Take 1 Univers 10 mg 9-13 tablet by ity of tablet 00:00: mouth [place] 00 every 6 Medical (six) Branch hours. hydrOXYzine 2018- 2023- No [id number] 10mg Take 1 Univers 10 mg 9-13 02-16 tablet by ity of tablet 00:00: 00:00 mouth [place] 00 :00 every 6 Medical (six) Branch hours. hydrOXYzine 2018-0 3- No [id number] 10mg Take 1 Univers 10 mg 9-13 02-16 tablet by ity of tablet 00:00: 00:00 mouth [place] 00 :00 every 6 Medical (six) Branch hours. mirtazapine 2018- No 1mg 45 mg 8-05 tablet 00:00: [...] 500 mg 2-04 capsule 00:00: 00 lisinopril 2017-07 No 1mg 5 [...] No 1mg tablet 08-08 00:00: 00 metformin 2017-1 No 1mg 1,000 mg -13 tablet 00:00: 00 metformin 2018-1 No 1mg [...] mg tablet 04-06 00:00: 00 Abilify 5 2017-0 No 1mg mg tablet 04-06 00:00: 00 trazodone 2018-0 No 12mg 100 mg 04-06 tablet 00:00: 00 trazodone 2018-0 No 12mg 100 mg 04-06 tablet 00:00: 00 Effexor XR 2018-0 No 1mg 75 mg 04-06 capsule,ext 00:00: ended 00 release Lexapro 20 2018-0 No 1mg mg tablet 04-06 00:00: 00 Abilify 5 2017-0 No 1mg mg tablet 04-06 00:00: [...] Effexor XR 2018-0 No 1mg 75 mg -27 capsule,ext 00:00: ended 00 release Lexapro 20 [...] Lexapro 20 2018-0 No 1mg mg tablet 8- 00:00: 00 Abilify 5 [...] Abilify 5 2016-0 No 1mg mg tablet 9- 00:00: 00 Lexapro 20 2017-0 No 1mg mg tablet 9- 00:00: 00 buspirone 2017-0 No 1mg 15 mg 9-14 tablet 00:00: 00 trazodone 2017-0 No 2mg 100 mg 9-14 tablet 00:00: 00 Abilify 5 2016-0 No 1mg mg tablet 9-14 00:00: 00 Lexapro 20 2017-0 No 1mg mg tablet 9- 00:00: 00 Abilify 5 2017-0 No 1mg [...] Abilify 5 2017-0 No 1mg mg tablet 518 00:00: 00 buspirone 2017-0 No 1mg 10 [...] 150 mg 4-11 tablet 00:00: 00 Carvedilol 2017-0 2023- No [id number] 6.25mg Take 1 Andreea 6.25 MG 4-10 09-07 tablet by Seybol d oral Tab 00:00: 00:00 mouth 2 - 00 :00 times Externa daily l (with meals) MethIMAzole 2022- No [id number] 10mg Take 1 Andreea 10 MG oral 4-10 09-07 tablet by Sey bold Tab 00:00: 00:00 mouth - 00 :00 daily Externa (with l breakfast) Lexapro 20 2017-0 No 15mg mg tablet 3 00:00: 00 Abilify 5 2017-0 No 1mg mg tablet 3 00:00: 00 trazodone 2017-0 No 1mg 150 mg 3 tablet 00:00: 00 Lexapro 20 2017-0 No 15mg mg tablet 3 00:00: 00 Abilify 5 2017-0 No 1mg mg tablet 3 00:00: 00 trazodone 2017-0 No 1mg 150 mg 3 tablet 00:00: 00 Lexapro 20 2017-0 No [...] doxepin 10 2015-0 No 12mg mg capsule 114 00:00: 00 Effexor XR 2016-0 No mg [...] Paxil 20 mg 1 No 1mg tablet 08-02 00:00: 00 Paxil 20 mg 1 No [...] 1,000 mg 7-08 tablet 00:00: 00 lisinopril 2014-0 No 1mg [...] 1mg 1,000 mg - tablet 00:00: 00 Januvia 100 2015-0 No 1mg mg tablet 11-15 00:00: 00 Januvia 100 2015-0 No 1mg mg tablet - 00:00: 00 Layla 2015-0 No 1mg mg tablet 11-15 00:00: 00 Layla 2015-0 No 1mg mg tablet 11-15 00:00: 00 Juan Juvwarner 2015-0 No 1mg mg tablet 11-15 00:00: 00 Layla 2015-0 No 1mg mg tablet 11-15 00:00: 00 Layla 2015-0 No 1mg mg tablet 11-15 00:00: 00 Layla 100 2015-0 No 1mg mg tablet 11-15 00:00: 00 Layla 2015-0 No 1mg mg tablet 11-15 00:00: 00 Layla 2015-0 No 1mg mg tablet 11-15 00:00: 00 Layla 2015-0 No 1mg mg tablet 11-15 00:00: [...] glimepiride 2015-0 No 1mg 4 mg tablet 3 00:00: 00 fluconazole 2015-0 No 1mg 150 [...] 00 metformin 2015-0 No 1mg 1,000 mg tablet 00:00: 00 Vistaril 50 No 1mg [...] mg 08-07 tablet 00:00: 00 Vistaril 50 No 1mg mg capsule 08-07 00:00: 00 Vistaril 50 No 1mg mg capsule 08-07 00:00: 00 Lancets & 2013- Yes Univers Blood 2-14 ity of Glucose 00:00: [place] Strips ( Medical TOUCH Branch COMBO) [facility] Lancets & 2012-07 Yes Univers Blood 2-14 ity of Glucose 00:00: [place] Strips ( Medical TOUCH Branch COMBO) [facility] Lancets & 2012- Yes Univers Blood 2-14 ity of Glucose 00:00: [place] Strips ( Medical TOUCH Branch COMBO) [facility] Lancets & 2012- Yes Univers Blood 2-14 ity of Glucose 00:00: [place] Strips ( Medical TOUCH Branch COMBO) [facility] Lancets & 2012- Yes Univers Blood 2-14 ity of Glucose 00:00: [place] Strips ( Medical TOUCH Branch COMBO) [facility] Lancets & 2012- Yes Univers Blood 2-14 ity of Glucose 00:00: [place] Strips ( Medical TOUCH Branch COMBO) [facility] Lancets & 2012- Yes Univers Blood 2-14 ity of Glucose 00:00: [place] Strips ( Medical TOUCH Branch COMBO) [facility] Lancets & 2012- Yes Univers Blood 2-14 ity of Glucose 00:00: [place] Strips ( Medical TOUCH Branch COMBO) [facility] Lancets & 2012- Yes Univers Blood 2-14 ity of Glucose 00:00: [place] Strips ( 00 Medical TOUCH Branch COMBO) [facility] Lancets & 2012- Yes Univers Blood 2-14 ity of Glucose 00:00: [place] Strips ( Medical TOUCH Branch COMBO) [facility] Lancets & 2013- Yes Univers Blood 2-14 [...] Strips (ONE 00 Medical TOUCH Branch COMBO) [facility] Blood-Gluco Yes Univer s se Meter 6-05 [...] Comments Sour ce Name Immunization Name Influenza Virus 2022-06-02 Completed Andreea fermin Vaccine, High Dose, 00:00:00 - Ext ernal Age 65 And Up Influenza High Dose 2022-06-02 Completed Univariel rsity of 00:00:00 [facility] Covid-19 Vaccine 2021-07-24 Completed Andreea aceves Moderna [...] - Ext ernal Mrna-lnp, Florentin Protein, Pf Moderna COVID-19 2021-07-24 Completed Vaccine 00:00:00 Moderna [...] 2021-07-24 Completed Vaccine 00:00:00 Pneumococcal 2020-05-21 Completed Andreea Seybo ld Vaccine, 00:00:00 - External Polysaccharide Tdap- (Boostrix, 2020-05-21 Completed Andreea Mota eybold Adacel) 00:00:00 - External Pneumococcal 2020-05-21 Completed Andreea Traoreo ld Vaccine, 00:00:00 - External Polysaccharide Tdap- (Boostrix, 2020-05-21 Completed Andreea casillasbold Adacel) 00:00:00 - External Pneumococcal 2020-05-21 Completed Andreea Seybo ld Vaccine, 00:00:00 - External Polysaccharide Tdap- (Boostrix, 2020-05-21 Completed Andreea S eybold Adacel) 00:00:00 - External Pneumococcal 2020-05-21 Completed Andreea Seybo ld Vaccine, 00:00:00 - External Polysaccharide Tdap- (Boostrix, 2020-05-21 Completed Andreea Mota eybold Adacel) 00:00:00 - External Pneumococcal 2020-05-21 Completed Andreea Seybo ld Vaccine, 00:00:00 - External Polysaccharide Tdap- (Boostrix, 2020-05-21 Completed Andreea Mota eybold Adacel) 00:00:00 - External Pneumococcal 2020-05-21 Completed University o f Polysaccharide, 00:00:00 [place] [facility] ical PPSV23 (PNEUMOVAX) Branch TDAP 2020-05-21 Completed University of 00:00:00 [facility] Pneumococcal 2020-05-21 Completed University o f Polysaccharide, 00:00:00 [place] [facility] ical PPSV23 (PNEUMOVAX) Branch TDAP 2020-05-21 Completed University of 00:00:00 [facility] Pneumococcal 2020-05-21 Completed University o f Polysaccharide, 00:00:00 [place] Med ical PPSV23 (PNEUMOVAX) Branch TDAP 2020-05-21 Completed University of 00:00:00 [facility] Pneumococcal 2020-05-21 Completed University o f Polysaccharide, 00:00:00 [place] Med ical PPSV23 (PNEUMOVAX) Branch TDAP 2020-05-21 Completed University of 00:00:00 [facility] Pneumococcal 2020-05-21 Completed University o f Polysaccharide, 00:00:00 [place] [facility] ical PPSV23 (PNEUMOVAX) Branch TDAP 2020-05-21 Completed University of 00:00:00 [facility] Pneumococcal 2020-05-21 Completed University o f Polysaccharide, 00:00:00 [place] [facility] ical PPSV23 (PNEUMOVAX) Branch TDAP 2020-05-21 Completed University of 00:00:00 [facility] Pneumococcal 2020-05-21 Completed University o f Polysaccharide, 00:00:00 [place] [facility] ical PPSV23 (PNEUMOVAX) Branch TDAP 2020-05-21 Completed University of 00:00:00 [facility] Pneumococcal 2020-05-21 Completed University o f Polysaccharide, 00:00:00 [place] [facility] ical PPSV23 (PNEUMOVAX) Branch TDAP 2020-05-21 Completed University of 00:00:00 [facility] Pneumococcal 2020-05-21 Completed University o f Polysaccharide, 00:00:00 [place] [facility] ical PPSV23 (PNEUMOVAX) Branch TDAP 2020-05-21 Completed University of 00:00:00 [facility] Pneumococcal 2020-05-21 Completed University o f Polysaccharide, 00:00:00 [place] [facility] ical PPSV23 (PNEUMOVAX) Branch TDAP 2020-05-21 Completed University of 00:00:00 [facility] Pneumococcal 2020-05-21 Completed University o f Polysaccharide, 00:00:00 [place] [facility] ical PPSV23 (PNEUMOVAX) Branch TDAP 2020-05-21 Completed University of 00:00:00 [facility] MMR- Measles, Mumps, 2013-07-25 Completed Mildred ey Seybold Rubella 00:00:00 - External MMR- Measles, Mumps, 2013-07-25 Completed Mildred ey Seybold Rubella 00:00:00 - External MMR- Measles, Mumps, 2013-07-25 Completed Mildred ey Seybold Rubella 00:00:00 - External MMR- Measles, Mumps, 2013-07-25 Completed Mildred ey Seybold Rubella 00:00:00 - External MMR- Measles, Mumps, 2013-07-25 Completed Mildred ey Seybold Rubella 00:00:00 - External MMR 2013-07-25 Completed University of 00:00:00 [facility] MMR 2013-07-25 Completed University of 00:00:00 [facility] MMR 2013-07-25 Completed University of 00:00:00 [facility] MMR 2013-07-25 Completed University of 00:00:00 [facility] MMR 2013-07-25 Completed University of 00:00:00 [facility] MMR 2013-07-25 Completed University of 00:00:00 [facility] MMR 2013-07-25 Completed University of 00:00:00 [facility] MMR 2013-07-25 Completed University of 00:00:00 [facility] MMR 2013-07-25 Completed University of 00:00:00 [facility] MMR 2013-07-25 Completed University of 00:00:00 [facility] MMR 2013-07-25 Completed University of 00:00:00 [facility] Tdap- (Boostrix, 2013-05-21 Completed Andreea aceves Adacel) 00:00:00 - External Tdap- (Boostrix, 2013-05-21 Completed Andreea casillasbold Adacel) 00:00:00 - External Tdap- (Boostrix, 2013-05-21 Completed Andreea aceves Adacel) 00:00:00 - External Tdap- (Boostrix, 2013-05-21 Completed Andreea Mota eybold Adacel) 00:00:00 - External Tdap- (Boostrix, 2013-05-21 Completed Andreea Mota eybold Adacel) 00:00:00 - External TDAP 2013-05-21 Completed University of 00:00:00 [place] [facility] TDAP 2013-05-21 Completed University of 00:00:00 [facility] TDAP 2013-05-21 Completed University of 00:00:00 [place] [facility] TDAP 2013-05-21 Completed University of 00:00:00 [facility] TDAP 2013-05-21 Completed University of 00:00:00 [facility] TDAP 2013-05-21 Completed University of 00:00:00 [facility] Branch TDAP 2013-05-21 Completed University of 00:00:00 [facility] TDAP 2013-05-21 Completed University of 00:00:00 [facility] TDAP 2013-05-21 Completed University of 00:00:00 [facility] Branch TDAP 2013-05-21 Completed University of 00:00:00 [facility] TDAP 2013-05-21 Completed University of 00:00:00 [facility] Influenza Virus 2013-03-19 Completed Andreea Se ybold [...] Ex ternal Formulation Influenza Virus 2013-03-19 Completed Universit y of Vaccine 00:00:00 [facility] Influenza Virus 2013-03-19 Completed Universit y of Vaccine 00:00:00 [facility] Influenza Virus 2013-03-19 Completed Universit y of Vaccine 00:00:00 [facility] Influenza Virus 2013-03-19 Completed Universit y of Vaccine 00:00:00 [facility] Influenza Virus 2013-03-19 Completed Universit y of Vaccine 00:00:00 [facility] Influenza Virus 2013-03-19 Completed Universit y of Vaccine 00:00:00 [facility] Influenza Virus 2013-03-19 Completed Universit y of Vaccine 00:00:00 [facility] Influenza Virus 2013-03-19 Completed Universit y of Vaccine 00:00:00 [facility] Influenza Virus 2013-03-19 Completed Universit y of Vaccine 00:00:00 [facility] Influenza Virus 2013-03-19 Completed Universit y of Vaccine 00:00:00 [facility] Influenza Virus 2013-03-19 Completed Universit y of Vaccine 00:00:00 [facility] Rubella 2008-04-17 Completed Andreea Corona 00:00:00 - External Rubella 2008-04-17 Completed Andreea Seybold 00:00:00 - External Rubella 2008-04-17 Completed Andreea Seybold 00:00:00 - External Rubella 2008-04-17 Completed Andreea Seybold 00:00:00 - External Rubella 2008-04-17 Completed Andreea Seybold 00:00:00 - External Rubella 2008-04-17 Completed University of 00:00:00 [facility] Rubella 2008-04-17 Completed University of 00:00:00 [facility] Rubella 2008-04-17 Completed University of 00:00:00 [facility] Rubella 2008-04-17 Completed University of 00:00:00 [facility] Rubella 2008-04-17 Completed University of 00:00:00 [facility] Rubella 2008-04-17 Completed University of 00:00:00 [facility] Rubella 2008-04-17 Completed University of 00:00:00 [facility] Rubella 2008-04-17 Completed University of 00:00:00 [facility] Rubella 2008-04-17 Completed University of 00:00:00 [facility] Rubella 2008-04-17 Completed University of 00:00:00 [facility] Rubella 2008-04-17 Completed University of 00:00:00 [facility] Tdap- (Boostrix, 2004-07-11 Completed Andreea aceves Adacel) 00:00:00 - External Tdap- (Boostrix, 2004-07-11 Completed Andreea aceves Adacel) 00:00:00 - External Tdap- (Boostrix, 2004-07-11 Completed Andreea aceves Adacel) 00:00:00 - External Tdap- (Boostrix, 2004-07-11 Completed Andreea aceves Adacel) 00:00:00 - External Tdap- (Boostrix, 2004-07-11 Completed Andreea aceves Adacel) 00:00:00 - External TD, NOS 2004-07-11 Completed University of 00:00:00 [facility] TD, NOS 2004-07-11 Completed University of 00:00:00 [facility] Td 2004-07-11 Completed University of 00:00:00 [facility] Td 2004-07-11 Completed University of 00:00:00 [facility] Td 2004-07-11 Completed University of 00:00:00 [facility] Td 2004-07-11 Completed University of 00:00:00 [facility] Td 2004-07-11 Completed University of 00:00:00 [facility] Td 2004-07-11 Completed University of 00:00:00 [facility] Td 2004-07-11 Completed University of 00:00:00 [facility] TD, NOS 2004-07-11 Completed University of 00:00:00 [facility] TD, NOS 2004-07-11 Completed University of 00:00:00 [facility] Covid-19 Vaccine Unknown Completed Andreea aceves Moderna [...] - Ext ernal Age 65 And Up Covid-19 Vaccine Unknown Completed Andreea aceves Moderna (Spikevax), - Ext ernal Mrna-lnp, Florentin Protein, Pf Influenza Virus Unknown Completed Andreea fermin Vaccine, Unspecified - Ex ternal Formulation MMR- Measles, Mumps, Unknown Completed Mildred casillas jeny Rubella - External Pneumococcal Unknown Completed Andreea Salgado ld Vaccine, - External Polysaccharide Rubella Unknown Completed Andreea Godfreyibisraegan - External Tdap- (Boostrix, Unknown Completed Andreea aceves Adacel) - External Tdap- (Boostrix, Unknown Completed Andreea morserafael Adacel) - External Tdap- (Boostrix, Unknown Completed Andreea morserafael Adacel) - External Influenza Virus Unknown Completed Andreea fermin Vaccine, High Dose, - Ext ernal Age 65 And Up Rubella Unknown Completed [facility] TD, NOS Unknown Completed [facility] Influenza Virus Unknown Completed Universit y of Vaccine [facility] TDAP Unknown Completed [facility] MMR Unknown Completed [facility] Pneumococcal Unknown Completed [place] o f Polysaccharide, [place] [facility] PPSV23 (PNEUMOVAX) Branch TDAP Unknown Completed [facility] Influenza High Dose Unknown Completed [facility] Rubella Unknown Completed [facility] TD, NOS Unknown Completed [facility] Influenza Virus Unknown Completed [facility] TDAP Unknown Completed [facility] MMR Unknown Completed [facility] Pneumococcal Unknown Completed University o f Polysaccharide, [place] [facility] PPSV23 (PNEUMOVAX) Branch TDAP Unknown Completed [facility] Rubella Unknown Completed [facility] [facility] TD, NOS Unknown Completed [facility] Influenza Virus Unknown Completed [facility] y of Vaccine [facility] TDAP Unknown Completed [facility] MMR Unknown Completed [facility] Pneumococcal Unknown Completed University o f Polysaccharide, [place] [facility] PPSV23 (PNEUMOVAX) Branch TDAP Unknown Completed [facility] Rubella Unknown Completed [facility] TD, NOS Unknown Completed [facility] Influenza Virus Unknown Completed [facility] Vaccine [facility] TDAP Unknown Completed [facility] MMR Unknown Completed [facility] Pneumococcal Unknown Completed University o f Polysaccharide, [place] [facility] PPSV23 (PNEUMOVAX) Branch TDAP Unknown Completed [facility] Influenza High Dose Unknown Completed Unive [facility] Rubella Unknown Completed [facility] TD, NOS Unknown Completed [facility] Influenza Virus Unknown Completed [facility]it [facility] Vaccine [facility] TDAP Unknown Completed [facility] MMR Unknown Completed [facility] Pneumococcal Unknown Completed [place] [facility] [place] PPSV23 (PNEUMOVAX) Branch TDAP Unknown Completed [facility] Influenza High Dose Unknown Completed Unive [facility] Vital Signs Vital Name Observation Time Observation Value Comments Source Systolic blood 2023-05-03 02:00:00 116 mm[Hg] Univer sity of pressure [facility] Diastolic blood 2023-05-03 02:00:00 70 mm[Hg] Unive [facility] Heart rate 2023-05-03 02:00:00 72 /min [facility] Body temperature 2023-05-03 02:00:00 36.61 [address]za [facility] Respiratory rate 2023-05-03 02:00:00 18 /min [facility] Oxygen saturation in 2023-05-03 02:00:00 96 /min [facility] Arterial blood by [facility] Pulse oximetry [place] Body height 2023-05-02 22:38:00 162.6 cm [facility] Body weight 2023-05-02 22:38:00 92.987 kg [facility] BMI 2023-05-02 22:38:00 35.19 kg/m2 [facility] Systolic blood 2023-04-29 19:22:00 100 mm[Hg] Andreea ybold - pressure External Diastolic blood 2023-04-29 19:22:00 67 mm[Hg] Vikram y ybraegan - pressure External Heart rate 2023-04-29 18:47:00 96 /min Andreea aceves - External Body temperature 2023-04-29 18:47:00 36.89 Lorenza Mildred ey Seybold - External Body height 2023-04-29 18:47:00 162.6 cm Andreea S yola - External Body weight 2023-04-29 18:47:00 93.895 kg Andreea Mota eybold - External BMI 2023-04-29 18:47:00 35.53 kg/m2 Andreea S eybold - External Systolic blood 2023-03-29 20:55:00 99 mm[Hg] Andreea Seybold - pressure External Diastolic blood 2023-03-29 20:55:00 51 mm[Hg] Kelse y Seybold - pressure External Heart rate 2023-03-29 20:55:00 96 /min Andreea S eybold - External Body temperature 2023-03-29 20:55:00 36.56 Lorenza Mildred ey Seybold - External Respiratory rate 2023-03-29 20:55:00 15 /min Mildred ey Seybold - External Body height 2023-03-29 20:55:00 162.6 cm Andreea S eybold - External Body weight 2023-03-29 20:55:00 98.884 kg Andreea S eybold - External BMI 2023-03-29 20:55:00 37.42 kg/m2 Andreea S eybold - External Oxygen saturation in 2023-03-29 20:55:00 99 /min Andreea Seybold - Arterial blood by External Pulse oximetry Systolic blood 2023-02-17 21:28:00 118 mm[Hg] Andreea Seybold - pressure External Diastolic blood 2023-02-17 21:28:00 60 mm[Hg] Vikram y Seybold - pressure External Heart rate 2023-02-17 21:28:00 94 /min Andreea Mota eybold - External Body temperature 2023-02-17 21:28:00 36.39 Lorenza Mildred ey Seybold - External Respiratory rate 2023-02-17 21:28:00 20 /min Mildred ey Seybold - External Body height 2023-02-17 21:28:00 162.6 cm Andreea S eybold - External Body weight 2023-02-17 21:28:00 106.232 kg Andreea S eybold - External BMI 2023-02-17 21:28:00 40.20 kg/m2 Andreea S eybold - External Oxygen saturation in 2023-02-17 21:28:00 98 /min Andreea Seybold - Arterial blood by External Pulse oximetry Systolic blood 2023-01-12 12:08:00 108 mm[Hg] Univer sity of pressure [facility] Diastolic blood 2023-01-12 12:08:00 66 mm[Hg] Unive rsity of [facility] Heart rate 2023-01-12 12:08:00 68 /min Universi ty [facility] Body temperature 2023-01-12 12:08:00 36 Lorenza [facility] Respiratory rate 2023-01-12 12:08:00 14 /min [facility] Oxygen saturation in 2023-01-12 12:08:00 96 /min University of Arterial blood by [facility] Pulse oximetry Branch Body weight 2023-01-12 08:58:00 105.96 kg Universi [facility] BMI 2023-01-12 08:58:00 40.10 kg/m2 [facility] Body height 2023-01-10 16:47:00 162.6 cm [facility] Systolic blood 2022-12-21 19:08:00 115 mm[Hg] Andreea Seybold - pressure External Diastolic blood 2022-12-21 19:08:00 77 mm[Hg] Spencerse y Seybold - pressure External [...] saturation in 2022-12-17 19:52:00 99 /min Andreea Godfreyybraegan - Arterial blood by External Pulse oximetry Systolic blood 2022-11-03 15:00:00 103 mm[Hg] Univer sity of [facility] Diastolic blood 2022-11-03 15:00:00 72 mm[Hg] [facility] 2022-11-03 15:00:00 76 /min [facility] Oxygen saturation in 2022-11-03 15:00:00 96 /min [facility] Arterial blood by [facility] Pulse oximetry Branch Respiratory rate 2022-11-03 14:58:00 14 /min [facility] Body temperature 2022-11-03 13:25:00 37.22 Lorenza [facility] Body weight 2022-11-03 13:25:00 99.791 kg [facility] BMI 2022-11-03 13:25:00 37.76 kg/m2 [facility] Systolic blood 2022-10-01 20:47:00 110 mm[Hg] Andreea Godfreyybraegan - pressure External Diastolic blood 2022-10-01 20:47:00 75 mm[Hg] Vikram isaac Eugenieraegan - pressure External Heart rate 2022-10-01 20:47:00 [...] saturation in 2022-09-07 20:49:00 96 /min Andreea Seybraegan - Arterial blood by External Pulse oximetry Systolic blood 2022-09-07 20:49:00 103 mm[Hg] Andreea [...] Andreea Mota eybold - External Systolic blood 2022-08-30 14:00:00 112 mm[Hg] Univer sity of pressure [place] [facility] Diastolic blood 2022-08-30 14:00:00 75 mm[Hg] Unive rsity of pressure [place] [facility] Oxygen saturation in 2022-08-30 14:00:00 97 /min University of Arterial blood by [employer] bonita Pulse oximetry Branch Heart rate 2022-08-30 13:00:00 93 /min [facility]i ty of [place] [facility] Body temperature 2022-08-30 13:00:00 35.83 Lorenza Univ ersity of [place] [facility] Respiratory rate 2022-08-30 13:00:00 15 /min Univ ersity of [place] [facility] Body weight 2022-08-29 12:00:00 112.492 kg [facility]i ty [facility] [place] [facility] BMI 2022-08-29 12:00:00 42.57 kg/m2 [facility] ty [facility] [place] [facility] Body height 2022-08-27 00:21:00 162.6 cm [facility]i ty [facility] [place] [facility] Systolic blood 2022-06-22 04:59:00 110 mm[Hg] Univer sity of pressure [place] [facility] Diastolic blood 2022-06-22 04:59:00 70 mm[Hg] Unive rsity of pressure [place] [facility] Heart rate 2022-06-22 04:59:00 107 /min [facility]i ty [facility] [place] [facility] Respiratory rate 2022-06-22 04:59:00 22 /min Univ ersity of [place] [facility] Oxygen saturation in 2022-06-22 04:59:00 97 /min University of Arterial blood by [place] [employer] bonita Pulse oximetry Branch Body temperature 2022-06-21 23:26:00 37.28 Lorenza Univ ersity of [place] [facility] Body height 2022-06-21 23:26:00 162.6 cm [facility]i ty [facility] [place] [facility] Body weight 2022-06-21 23:26:00 98.431 kg [facility]i ty [facility] [place] [facility] BMI 2022-06-21 23:26:00 37.25 kg/m2 [facility] ty [facility] [place] [facility] Systolic blood 2021-10-17 02:05:00 117 mm[Hg] Univer sity of pressure [place] [facility] Diastolic blood 2021-10-17 02:05:00 63 mm[Hg] Unive rsity of pressure [place] [facility] Heart rate 2021-10-17 02:05:00 76 /min [facility]i ty [facility] [place] [facility] Respiratory rate 2021-10-17 02:05:00 18 /min Univ ersity of [place] [facility] Oxygen saturation in 2021-10-17 02:05:00 98 /min University of Arterial blood by [place] [employer] bonita Pulse oximetry Branch Body temperature 2021-10-16 22:30:00 37.33 Lorenza Univ ersity of [place] [facility] Body weight 2021-10-16 21:38:00 103.42 kg Universi ty [facility] [place] [facility] BMI 2021-10-16 21:38:00 37.94 kg/m2 [facility] ty [facility] [place] [facility] Systolic blood 2021-09-22 17:00:00 108 mm[Hg] Univer sity of pressure [place] [facility] Diastolic blood 2021-09-22 17:00:00 77 mm[Hg] Unive rsity of pressure [place] [facility] Heart rate 2021-09-22 17:00:00 90 /min [facility]i ty [facility] [place] [facility] Oxygen saturation in 2021-09-22 17:00:00 97 /min University of Arterial blood by [place] [employer] bonita Pulse oximetry Branch Respiratory rate 2021-09-22 15:00:00 18 /min Univ ersity of [place] [facility] Body temperature 2021-09-22 14:52:00 37.11 Lorenza Univ ersity of [place] [facility] Body weight 2021-09-22 14:52:00 103.42 kg [facility]i ty [facility] [place] [facility] BMI 2021-09-22 14:52:00 37.94 kg/m2 [facility]i ty [facility] [place] [facility] Systolic blood 2021-06-18 12:00:00 142 mm[Hg] Univer sity of pressure [place] [facility] Diastolic blood 2021-06-18 12:00:00 94 mm[Hg] Unive rsity of pressure [place] [facility] Heart rate 2021-06-18 12:00:00 98 /min [facility]i ty [facility] [place] [facility] Body temperature 2021-06-18 12:00:00 36.56 Lorenza Univ ersity of [place] [facility] Respiratory rate 2021-06-18 12:00:00 13 /min Univ ersity of [facility] Oxygen saturation in 2021-06-18 12:00:00 95 /min University of Arterial blood by [facility] bonita Pulse oximetry Branch Body height 2021-06-18 10:37:00 165.1 cm [facility]i ty [facility] [place] [facility] Body weight 2021-06-18 10:37:00 107.502 kg Universi ty [facility] BMI 2021-06-18 10:37:00 39.44 kg/m2 Universi ty of [facility] Systolic blood 2021-05-31 01:34:00 139 mm[Hg] Univer sity of pressure [facility] Diastolic blood 2021-05-31 01:34:00 90 mm[Hg] Unive rsity of pressure [facility] Heart rate 2021-05-31 01:34:00 112 /min [facility]i ty [facility] [place] [facility] Respiratory rate 2021-05-31 01:34:00 20 /min Univ ersity of [facility] Oxygen saturation in 2021-05-31 01:34:00 98 /min University of Arterial blood by [facility] Pulse oximetry Branch Body weight 2021-05-30 21:47:00 107.502 kg Universi ty of [facility] BMI 2021-05-30 21:47:00 40.68 kg/m2 Universi ty [facility] BP Systolic 2022-06-18 10:43:00 118 mm[Hg] BP [...] Date / Time Performing Clinician Source Performed URINALYSIS 2023-05-02 23:24:00 Darlin Sada [facility] COMP. METABOLIC PANEL 2023-05-02 23:17:00 Sada Saeed [facility] ([id number]) [facility] CBC WITH DIFF 2023-05-02 23:17:00 Darlin [facility] CONSENT/REFUSAL FOR 2023-05-02 22:22:12 [facility] Name [facility] POCT GLUCOSE (AUTOMATED) 2023-01-12 12:34:00 Gudelia Garcia Uni versity of [facility] LIPASE 2023-01-12 10:11:00 Mary Morrison [facility] BASIC METABOLIC PANEL 2023-01-12 10:11:00 [facility] (NA, K, CL, CO2, Medical Branch GLUCOSE, BUN, CREATININE, CA) CBC WITH DIFF 2023-01-12 10:11:00 Mary Morrison [facility] POCT GLUCOSE (AUTOMATED) 2023-01-12 02:34:00 Gudelia Garcia [facility] POCT GLUCOSE (AUTOMATED) 2023-01-11 21:20:00 Gudelia Garcia [facility] POCT GLUCOSE (AUTOMATED) 2023-01-11 16:26:00 Gudelia Garcia [facility] POCT GLUCOSE (AUTOMATED) 2023-01-11 12:42:00 Gudelia Garcia [facility] LIPID PANEL 2023-01-11 06:30:00 Gudelia Garcia [facility] ([id number])(TOTAL Medical Branch CHOLESTEROL, TRIGLYCERIDES, HDL) LOW-DENSITY LIPOPROTEIN, 2023-01-11 06:30:00 Gudelia Garcia [facility] DIRECT [facility] POCT GLUCOSE (AUTOMATED) 2023-01-11 02:07:00 Gudelia Garcia [facility] ADC CLC OR LCC ONLY - 2023-01-10 20:13:00 Deya Juarez [facility] WET PREP [facility] HSV 1 AND 2 GLYCOPROTEIN 2023-01-10 20:13:00 Judy uJarez [facility] G IGG [facility] US PELVIS COMPLETE WITH 2023-01-10 20:11:36 Howie Juarez [facility] TRANSVAGINAL [facility] GLYCOSYLATED HEMOGLOBIN 2023-01-10 17:35:00 Gudelia Garcia [facility] (A1C) [facility] CT ABDOMEN PELVIS W 2023-01-10 15:07:29 Ngoc Tinajero [facility] CONTRAST [facility] POCT TEST 2023-01-10 13:37:00 Ngoc Tinajero [facility] TRIGLYCERIDES 2023-01-10 13:29:00 Ngoc Tinajero [facility] LIPASE 2023-01-10 13:29:00 Ngoc Tinajero [facility] COMP. METABOLIC PANEL 2023-01-10 13:29:00 Ngoc Tinajero [facility] ([id number]) [facility] CBC WITH DIFF 2023-01-10 13:29:00 Ngoc Tinajero [facility] ASSIGNMENT OF BENEFITS 2023-01-10 12:54:19 Doctor Unassigned, No [facility] URINALYSIS 2023-01-10 12:31:00 Lior [facility] CONSENT/REFUSAL FOR 2023-01-10 12:22:34 [facility] Name [facility] REAGENT STRIP/BLOOD 2022-12-21 00:00:00 Outside, Reported Andreea Traoreold - GLUCOSE External LIPASE 2022-11-03 13:37:00 [facility] 2022-11-03 13:37:00 [facility] ([id number]) (ALB,T.PRO,BILI [facility] Branch T,BU/BC,ALT,AST,ALK PHOS) BASIC METABOLIC PANEL 2022-11-03 13:37:[address] [facility] (NA, K, CL, CO2, Medical Branch GLUCOSE, BUN, CREATININE, CA) LIPID PANEL 2022-11-03 13:37:00 [facility] ([id number])(TOTAL [facility] CHOLESTEROL, TRIGLYCERIDES, HDL) CBC WITH DIFF 2022-11-03 13:37:00 [facility] 2022-11-03 13:37:00 [facility] CONSENT/REFUSAL FOR 2022-11-03 13:22:43 Doctor Unassigned, No Un [facility] DIAGNOSIS AND TREATMENT [facility] REAGENT STRIP/BLOOD 2022-09-10 00:00:00 Outside, Reported Andreea Traoreold - GLUCOSE External POCT GLUCOSE (AUTOMATED) 2022-08-30 14:52:00 Meri Wray Uni [facility] POCT GLUCOSE (AUTOMATED) 2022-08-30 13:01:00 Meri Wray Uni [facility] POCT GLUCOSE (AUTOMATED) 2022-08-30 12:03:00 Meri Wray [facility] POCT GLUCOSE (AUTOMATED) 2022-08-30 11:04:00 Meri Wray Uni versity of [facility] TRIGLYCERIDES 2022-08-30 10:18:00 Meri Wray [place] o f [facility] BASIC METABOLIC PANEL 2022-08-30 10:18:00 Meri Wray [facility] (NA, K, CL, CO2, Medical Branch GLUCOSE, BUN, CREATININE, CA) POCT GLUCOSE (AUTOMATED) 2022-08-30 10:11:00 OvMeri moran Uni versity of [facility] POCT GLUCOSE (AUTOMATED) 2022-08-30 09:10:00 OvParesh morani Uni versity of [facility] POCT GLUCOSE (AUTOMATED) 2022-08-30 08:08:00 OvParesh morani Uni versity of [facility] POCT GLUCOSE (AUTOMATED) 2022-08-30 07:15:00 OvParesh morani Uni versity of [facility] POCT GLUCOSE (AUTOMATED) 2022-08-30 06:28:00 OvParesh morani Uni versity of [facility] POCT GLUCOSE (AUTOMATED) 2022-08-30 05:04:00 OvillePareshi Uni versity of [facility] POCT GLUCOSE (AUTOMATED) 2022-08-30 04:11:00 OvParesh morani Uni versity of [facility] POCT GLUCOSE (AUTOMATED) 2022-08-30 03:03:00 OvTawanda moranlani Uni versity of [facility] POCT GLUCOSE (AUTOMATED) 2022-08-30 02:21:00 OvParesh morani Uni versity of [facility] POCT GLUCOSE (AUTOMATED) 2022-08-30 01:02:00 Ovdean Meri Uni versity of [facility] POCT GLUCOSE (AUTOMATED) 2022-08-30 00:03:00 OvilleTawandaMeri Uni versity of [facility] POCT GLUCOSE (AUTOMATED) 2022-08-29 23:00:00 Ovdean Meri Uni versity of [facility] POCT GLUCOSE (AUTOMATED) 2022-08-29 22:04:00 Ovdean, Meri Uni versity of [facility] POCT GLUCOSE (AUTOMATED) 2022-08-29 21:11:00 [facility] POT[facility] 2022-08-29 20:33:00 [facility] 2022-08-29 20:33:00 [facility]OMATED) 2022-08-29 20:07:00 Meri Wray Uni versity [facility] POCT GLUCOSE (AUTOMATED) 2022-08-29 19:09:00 Meri Wray Uni versity [facility] POCT GLUCOSE (AUTOMATED) 2022-08-29 18:12:00 OvMeri moran Uni versity [facility] POCT GLUCOSE (AUTOMATED) 2022-08-29 17:08:00 Meri Wray Uni versity [facility] POCT GLUCOSE (AUTOMATED) 2022-08-29 16:14:00 Meri Wray [facility] POCT GLUCOSE (AUTOMATED) 2022-08-29 15:05:00 OvMeri [facility]an [facility] POCT GLUCOSE (AUTOMATED) 2022-08-29 14:08:00 OvMeri moran Uni versity [facility] POCT GLUCOSE (AUTOMATED) 2022-08-29 13:18:00 Meri Wray [facility] POCT GLUCOSE (AUTOMATED) 2022-08-29 12:06:00 Meri Wray [facility] POCT GLUCOSE (AUTOMATED) 2022-08-29 10:56:00 Meri Wray [facility] TRIGLYCERIDES 2022-08-29 10:53:00 Meri Wray [facility] MAGNESIUM 2022-08-29 10:53:00 [facility] BASIC METABOLIC PANEL 2022-08-29 10:53:00 Meri Wray [facility] (NA, K, CL, CO2, [facility] GLUCOSE, BUN, CREATININE, CA) POCT GLUCOSE (AUTOMATED) 2022-08-29 09:59:00 Meri Wray [facility] POCT GLUCOSE (AUTOMATED) 2022-08-29 09:07:00 Meri Wray versity of [facility] POCT GLUCOSE (AUTOMATED) 2022-08-29 07:55:00 Oville, Meri Uni versity of [facility] POCT GLUCOSE (AUTOMATED) 2022-08-29 07:06:00 Ovdean, Meri Uni versity of [facility] POCT GLUCOSE (AUTOMATED) 2022-08-29 06:02:00 OvParesh morani Uni versity of [facility] POCT GLUCOSE (AUTOMATED) 2022-08-29 05:09:00 Ovdean, Meri Uni versity of [facility] POCT GLUCOSE (AUTOMATED) 2022-08-29 04:09:00 Ovdean, Meri Uni versity of [facility] POCT GLUCOSE (AUTOMATED) 2022-08-29 03:17:00 Ovdean, Meri Uni versity of [facility] POCT GLUCOSE (AUTOMATED) 2022-08-29 02:11:00 OvParesh morani Uni versity of [facility] POCT GLUCOSE (AUTOMATED) 2022-08-29 01:00:00 OvParesh morani Uni versity of [facility] POCT GLUCOSE (AUTOMATED) 2022-08-29 00:13:00 Ovdean, Meri Uni versity of [facility] POCT GLUCOSE (AUTOMATED) 2022-08-28 23:13:00 Ovdean, Meri Uni versity of [facility] POCT GLUCOSE (AUTOMATED) 2022-08-28 22:15:00 Ovdean, Meri Uni versity of [facility] POCT GLUCOSE (AUTOMATED) 2022-08-28 21:04:00 OvParesh morani Uni versity of [facility] POCT GLUCOSE (AUTOMATED) 2022-08-28 20:03:00 Ovdean, Meri Uni versity of [facility] POCT GLUCOSE (AUTOMATED) 2022-08-28 19:06:00 OvParesh morani Uni versity of [facility] TRIGLYCERIDES 2022-08-28 18:22:00 Kamala [facility] f [facility] BASIC METABOLIC PANEL 2022-08-28 18:22:00 Meri Wray [facility] (NA, K, CL, CO2, Medical Branch GLUCOSE, BUN, CREATININE, CA) POCT GLUCOSE (AUTOMATED) 2022-08-28 18:13:00 OvParesh morani Uni versity of [facility] POCT GLUCOSE (AUTOMATED) 2022-08-28 17:03:00 Ovdean, Meri Uni versity of [facility] POCT GLUCOSE (AUTOMATED) 2022-08-28 16:02:00 Ovdean, Meri Uni versity of [facility] POCT GLUCOSE (AUTOMATED) 2022-08-28 15:02:00 Oville, Meri Uni versity of [facility] POCT GLUCOSE (AUTOMATED) 2022-08-28 14:03:00 Oville, Meri Uni versity of [facility] POCT GLUCOSE (AUTOMATED) 2022-08-28 13:04:00 Ovdean Meri Uni versity of [facility] POCT GLUCOSE (AUTOMATED) 2022-08-28 12:30:00 OvTawanda moranlani Uni versity of [facility] POCT GLUCOSE (AUTOMATED) 2022-08-28 11:32:00 OvParesh morani Uni versity of [facility] POCT GLUCOSE (AUTOMATED) 2022-08-28 10:06:00 Ovdean Meri Uni versity of [facility] TRIGLYCERIDES 2022-08-28 10:00:00 Kamala [facility] BASIC METABOLIC PANEL 2022-08-28 10:00:00 Meri Wray [facility] (NA, K, CL, CO2, Medical Branch GLUCOSE, BUN, CREATININE, CA) POCT GLUCOSE (AUTOMATED) 2022-08-28 08:59:00 OvParesh morani Uni versity of [facility] POCT GLUCOSE (AUTOMATED) 2022-08-28 08:05:00 Oville Meri Uni versity of [facility] POCT GLUCOSE (AUTOMATED) 2022-08-28 05:58:00 Ovdean Meri Uni versity of [facility] POCT GLUCOSE (AUTOMATED) 2022-08-28 05:03:00 Ovdean Meri Uni versity of [facility] POCT GLUCOSE (AUTOMATED) 2022-08-28 04:01:00 Ovdean Meri Uni versity of [facility] POCT GLUCOSE (AUTOMATED) 2022-08-28 03:04:00 Meri Wray Uni versity [facility] POCT GLUCOSE (AUTOMATED) 2022-08-28 02:02:00 Meri Wray Uni versity [facility] POCT GLUCOSE (AUTOMATED) 2022-08-28 01:01:00 Meri Wray Uni versity [facility] POCT GLUCOSE (AUTOMATED) 2022-08-28 00:02:00 Meri Wray Uni versity [facility] POCT GLUCOSE (AUTOMATED) 2022-08-27 23:34:00 OvMeri moran Uni versity [facility] POCT GLUCOSE (AUTOMATED) 2022-08-27 22:07:00 Meri Wray Uni [facility] BASIC METABOLIC PANEL 2022-08-27 21:28:[address] [facility] (NA, K, CL, CO2, Medical Branch GLUCOSE, BUN, CREATININE, CA) POCT GLUCOSE (AUTOMATED) 2022-08-27 21:01:00 Meri Wray Uni [facility] POCT GLUCOSE (AUTOMATED) 2022-08-27 20:17:00 Meri Wray Uni versity [facility] POCT GLUCOSE (AUTOMATED) 2022-08-27 19:00:00 Meri Wray Uni [facility] POCT GLUCOSE (AUTOMATED) 2022-08-27 18:02:00 [facility] TRIGLYCERIDES 2022-08-27 17:17:00 Meri Wray [facility] BASIC METABOLIC PANEL 2022-08-27 17:17:[address] [facility] (NA, K, CL, CO2, Medical Branch GLUCOSE, BUN, CREATININE, CA) POCT GLUCOSE (AUTOMATED) 2022-08-27 16:59:00 [facility]) 2022-08-27 16:12:00 Meri Wray Uni versity [facility] POCT GLUCOSE (AUTOMATED) 2022-08-27 15:13:00 Meri Wray Uni versity [facility] POCT GLUCOSE (AUTOMATED) 2022-08-27 14:19:00 OvMeri moran Uni [facility] POCT GLUCOSE (AUTOMATED) 2022-08-27 13:23:00 OvMeri moran Uni versity [facility] POCT GLUCOSE (AUTOMATED) 2022-08-27 12:05:00 Meri Wray Uni versity [facility] POCT GLUCOSE (AUTOMATED) 2022-08-27 11:06:00 [facility] ([facility]OMATED) 2022-08-27 10:14:00 OvMeri moran Uni versity [facility] POCT GLUCOSE (AUTOMATED) 2022-08-27 09:04:00 OvMeri moran Uni [facility] TRIGLYCERIDES 2022-08-27 08:14:00 Kamala [facility] BASIC METABOLIC PANEL 2022-08-27 08:14:00 [facility] CL, CO2, Medical Branch GLUCOSE, BUN, CREATININE, CA) POCT GLUCOSE (AUTOMATED) 2022-08-27 06:58:00 Meri Wray Uni [facility] POCT GLUCOSE (AUTOMATED) 2022-08-27 06:11:00 Meri Wray Uni [facility] POCT GLUCOSE (AUTOMATED) 2022-08-27 05:11:00 Meri Wray Uni [facility] POCT GLUCOSE (AUTOMATED) 2022-08-27 03:13:00 Meri Wrya [facility] LIPASE 2022-08-27 02:32:00 Miguel Allen [facility] BASIC METABOLIC PANEL 2022-08-27 02:32:00 [facility] ([facility], K, CL, CO2, Medical Branch GLUCOSE, BUN, CREATININE, CA) MRSA / MSSA SCREEN BY 2022-08-27 02:32:00 Meri Wray [facility] PCR, [facility] POCT GLUCOSE (AUTOMATED) 2022-08-27 02:00:00 Meri Wray Uni [facility] POCT GLUCOSE (AUTOMATED) 2022-08-27 01:14:00 Meri Wray [facility] POCT GLUCOSE (AUTOMATED) 2022-08-27 00:14:00 Meri Wray [facility] POCT GLUCOSE (AUTOMATED) 2022-08-26 23:51:00 Meri Wray [facility] POCT GLUCOSE (AUTOMATED) 2022-08-26 23:06:00 Meri Wray [facility] KETONES URINE 2022-08-26 22:57:00 Robert Lutz [facility] URINALYSIS 2022-08-26 22:57:00 Robert Lutz [facility] POCT GLUCOSE (AUTOMATED) 2022-08-26 22:08:00 Robert Lutz [facility] ABG+COOX+NA+K+GLU+CA2+ 2022-08-26 21:16:00 oRbert Lutz [facility] MAGNESIUM 2022-08-26 21:11:00 Robert Lutz [facility] OSMOLALITY, SERUM OR 2022-08-26 21:11:00 Robert Lutz [facility] PLASMA [facility] COMP. METABOLIC PANEL 2022-08-26 21:11:00 Robert Lutz [facility] ([id number]) [facility] LIPID PANEL 2022-08-26 21:11:00 Bolivar [facility] ([id number])(TOTAL Medical Clifford CHOLESTEROL, TRIGLYCERIDES, HDL) CBC WITH DIFF 2022-08-26 21:11:00 Robert Lutz [facility] LOW-DENSITY LIPOPROTEIN, 2022-08-26 21:11:00 Robert Lutz [facility] DIRECT [facility] HB ECG ROUTINE & RHYTHM 2022-08-26 20:34:00 Guido Rucker [facility] POCT GLUCOSE (AUTOMATED) 2022-08-26 20:33:00 Doctor Unassigned, No [facility] Name [facility] CONSENT/REFUSAL FOR 2022-08-26 20:18:28 Doctor Unassigned, No [facility] DIAGNOSIS AND TREATMENT Name Medical Branch POCT GLUCOSE (AUTOMATED) 2022-06-22 03:40:00 Katelyn Ivey [facility] BASIC METABOLIC PANEL 2022-06-22 02:40:00 Katelyn Ivey [facility] (NA, K, CL, CO2, Medical Branch GLUCOSE, BUN, CREATININE, CA) POCT GLUCOSE(AGE 2022-06-22 02:39:00 Katelyn Ivey [facility] >30DAYS) [facility] POCT GLUCOSE (AUTOMATED) 2022-06-22 02:38:00 Katelyn Ivey [facility] VBG+VCOOX+NA+K+GLU+CA2+ 2022-06-22 02:08:00 Katelyn Ivey [facility] POCT GLUCOSE (AUTOMATED) 2022-06-22 01:41:00 Katelyn Ivey [facility] XR CHEST 2 VW 2022-06-22 00:47:37 [facility] PHOSPHORUS 2022-06-21 23:49:00 [facility] MAGNESIUM 2022-06-21 23:49:00 [facility] TROPONIN I 2022-06-21 23:49:00 [facility] BASIC METABOLIC PANEL 2022-06-21 23:49:00 Katelyn Ivey [facility] (NA, K, CL, CO2, Medical Branch GLUCOSE, BUN, CREATININE, CA) CBC WITH DIFF 2022-06-21 23:49:00 Katelyn Ivey [facility] GLYCOSYLATED HEMOGLOBIN 2022-06-21 23:49:00 [facility] (A1C) [facility] URINALYSIS 2022-06-21 23:49:00 [facility] RAPID STREP SCREEN FOR 2022-06-21 23:49:00 [facility] RAPID INFLUENZA A/B 2022-06-21 23:49:00 Katelyn Ivey [facility] N-TERMINAL PRO-BNP 2022-06-21 23:49:00 Katelyn Ivey [facility] COVID-19 (ID NOW RAPID 2022-06-21 23:49:00 [facility] TEST[facility]) [facility] CONSENT/REFUSAL FOR 2022-06-21 23:19:40 Doctor Unassigned, No [facility] Name [facility] POCT GLUCOSE (AUTOMATED) 2021-10-17 01:49:00 [facility](AGE 2021-10-17 00:41:00 Beatriz Eduardo [facility] >30DAYS) [facility] POCT GLUCOSE (AUTOMATED) 2021-10-17 00:40:00 [facility]LO[facility] S[facility]EN 2021-10-16 23:26:00 Beatriz Eduardo [facility] BLOOD CULTURE SCREEN 2021-10-16 23:03:00 Beatriz Eduardo [facility] TROPONIN I 2021-10-16 23:03:00 Beatriz Eduardo [facility] COMP. METABOLIC PANEL 2021-10-16 23:03:00 Beatriz Eduardo [facility] ([id number]) [facility] CBC WITH DIFF 2021-10-16 23:03:00 Beatriz Eduardo [facility] URINALYSIS 2021-10-16 23:03:00 Beatriz Eduardo [facility] N-TERMINAL PRO-BNP 2021-10-16 23:03:00 Beatriz Eduardo [facility] LACTIC ACID WHOLE BLOOD 2021-10-16 23:01:00 [facility] PEL[facility] WO 2021-10-16 22:40:13 Beatriz Eduardo [facility] CONTRAST [facility] POCT TEST 2021-10-16 22:34:00 Beatriz Eduardo [facility] CONSENT/REFUSAL FOR 2021-10-16 21:34:04 Doctor Unassigned, No [facility]AT[facility] Name Medical Branch CT ABDOMEN PELVIS WO 2021-09-22 15:59:44 Jn Miller [facility] POCT TEST 2021-09-22 15:18:00 Jn Miller [facility] COMP. METABOLIC PANEL 2021-09-22 15:16:00 Jn Miller [facility] ([id number]) Medical Branch CBC WITH DIFF 2021-09-22 15:16:[address] [facility] URINALYSIS 2021-09-22 14:58:[address] [facility] CONSENT/REFUSAL FOR 2021-09-22 14:47:03 Doctor Unassigned, No [facility] POCT GLUCOSE (AUTOMATED) 2021-06-18 13:04:00 Fozia Jang [facility] CT ABDOMEN PELVIS WO 2021-06-18 12:58:31 Fozia Jang [facility] POCT TEST 2021-06-18 11:06:00 Fozia Jang [facility] CREATINE KINASE 2021-06-18 10:50:00 Lionel Park [facility] COMP. METABOLIC PANEL 2021-06-18 10:50:00 Fozia Jang [facility] ([id number]) Medical Branch CBC WITH DIFF 2021-06-18 10:50:00 Fozia Jang [facility] URINALYSIS 2021-06-18 10:50:00 Fozia Jang [facility] RAPID INFLUENZA A/B 2021-06-18 10:50:00 Fozia Jang [facility] COVID-19 (ID NOW RAPID 2021-06-18 10:50:00 Fozia Jang [facility] TESTING) Medical Branch NOTICE OF PRIVACY 2021-06-18 10:24:00 Doctor Unassigned, No [facility] PRACTICES Name Medical Branch CONSENT/REFUSAL FOR 2021-06-18 10:21:45 Doctor Unassigned, No [facility]AT[facility] Name Medical Branch CT ABDOMEN PELVIS W 2021-05-30 23:52:43 Mary Jay [facility] CONTRAST Medical Branch CT HEAD WO CONTRAST 2021-05-30 23:52:13 Mary Jay [facility] XR CHEST 1 VW 2021-05-30 22:38:06 Mary Jay [facility] XR HAND 3+ VW LEFT 2021-05-30 22:38:06 [facility] XR FOREARM 2 VW LEFT 2021-05-30 22:28:08 [facility] CONSENT/REFUSAL FOR 2021-05-30 21:39:04 Doctor Unassigned, No [facility] TREATMENT Name [facility] Branch [id number] Ecg Routine Ecg 2015-12-20 00:00:00 W/least 12 Lds W/i r 83.71 2010-08-05 00:00:00 [facility] 77.98 2010-08-05 00:00:00 [facility] Plan of Care Planned Activity Planned Date Details Comments Source Future Scheduled 2023-06-08 Scre[facility] Test 20:13:37 malignant neoplasm of colon (procedure) [code = 908800013] Future Scheduled 2023-06-08 [facility] Test 20:13:37 malignant neoplasm of colon (procedure) [code = 462952198] Future Scheduled 2023-06-08 [facility] Test 20:13:37 malignant neoplasm of colon (procedure) [code = 647380704] Future Scheduled 2023-06-08 [facility] 20[facility]13[facility]37 (#1) [code = COVID-19 VACCINE (#1)] Future Scheduled 2023-06-08 [facility] 20:13:37 screening (procedure) [code = 764069349] Future Scheduled 2023-06-08 [facility] Test 20:13:37 malignant neoplasm of cervix (procedure) [code = 888104506] Future Scheduled 2023-06-08 BREAST CANCER [facility] Test 20:13:37 SCREENING [code = BREAST CANCER SCREENING] Future Scheduled 2023-06-08 [facility] Test 20:13:37 malignant neoplasm of colon (procedure) [code = 881710077] Future Scheduled 2023-06-08 [facility] Test 20:13:37 malignant neoplasm of colon (procedure) [code = 754422860] Future Scheduled 2023-06-08 [facility] 20:13:37 (#1) [code = INFLUENZA VACCINE (#1)] Future Scheduled 2023-05-04 [facility] Test 09:21:44 malignant neoplasm of colon (procedure) [code = 581631486] Future Scheduled 2023-05-04 [facility] Test 09:21:44 malignant neoplasm of colon (procedure) [code = 033159998] Future Scheduled 2023-05-04 [facility] Test 09:21:44 malignant neoplasm of colon (procedure) [code = 746027312] Future Scheduled 2023-05-04 [facility] [facility] Test 09:21:44 (#1) [code = COVID-19 VACCINE (#1)] Future Scheduled 2023-05-04 [facility] 09:21:44 screening (procedure) [code = 107898510] Future Scheduled 2023-05-04 [facility] Test 09:21:44 malignant neoplasm of cervix (procedure) [code = 003553985] Future Scheduled 2023-05-04 BREAST CANCER [facility] Test 09:21:44 SCREENING [code = BREAST CANCER SCREENING] Future Scheduled 2023-05-04 [facility] Test 09:21:44 malignant neoplasm of colon (procedure) [code = 488583398] Future Scheduled 2023-05-04 [facility] Test 09:21:44 malignant neoplasm of colon (procedure) [code = 375488900] Future Scheduled 2023-05-04 [facility] 09:21:44 (#1) [code = INFLUENZA VACCINE (#1)] Future Scheduled 2023-04-27 [facility] Test 09:36:47 malignant neoplasm of colon (procedure) [code = 961363284] Future Scheduled 2023-04-27 [facility] Test 09:36:47 malignant neoplasm of colon (procedure) [code = 338552501] Future Scheduled 2023-04-27 [facility] Test 09:36:47 malignant neoplasm of colon (procedure) [code = 019963735] Future Scheduled 2023-04-27 [facility] 09[facility]36:47 (#1) [code = COVID-19 VACCINE (#1)] Future Scheduled 2023-04-27 [facility] 09:36:47 screening (procedure) [code = 165916413] Future Scheduled 2023-04-27 [facility] Test 09:36:47 malignant neoplasm of cervix (procedure) [code = 366084669] Future Scheduled 2023-04-27 BREAST CANCER [facility] Test 09:36:47 SCREENING [code = BREAST CANCER SCREENING] Future [facility]23-04-27 [facility] neoplasm of colon (procedure) [code = 228872857] Future Scheduled 2023-04-27 [facility] Test 09:36:47 malignant neoplasm of colon (procedure) [code = 748187691] Future Scheduled 2023-04-27 INFL[facility]ENZA VACCINE [facility] Test 09:36:47 (#1) [code = INFLUENZA VACCINE (#1)] Future Scheduled 2023-04-27 RSV VACCINES > 60 [facility] Test 09:36:47 YR (1 - 1-dose 60+ series) [code = RSV VACCINES > 60 YR (1 - 1-dose 60+ series)] Future Scheduled 2023-03-11 [facility] 14:25:41 malignant neoplasm of colon (procedure) [code = 927097672] Future Scheduled 2023-03-11 [facility] 14:25:41 malignant neoplasm of colon (procedure) [code = 483950382] Future Scheduled 2023-03-11 [facility] Test 14:25:41 malignant neoplasm of colon (procedure) [code = 933092362] Future Scheduled 2023-03-11 [facility] 14:25:41 (#1) [code = COVID-19 VACCINE (#1)] Future Scheduled 2023-03-11 [facility] 14:25:41 screening (procedure) [code = 206013333] Future Scheduled 2023-03-11 [facility] 14:25:41 malignant neoplasm of cervix (procedure) [code = 623770988] Future Scheduled 2023-03-11 BREAST CANCER [facility] Test 14:25:41 SCREENING [code = BREAST CANCER SCREENING] Future Scheduled 2023-03-11 [facility] Test 14:25:41 malignant neoplasm of colon (procedure) [code = 184581612] Future Scheduled 2023-03-11 [facility] Test 14:25:41 malignant neoplasm of colon (procedure) [code = 987620011] Future Scheduled 2023-03-11 [facility] 14:25:41 (#1) [code = INFLUENZA VACCINE (#1)] Future Scheduled 2023-02-09 [facility] Test 10:57:52 malignant neoplasm of colon (procedure) [code = 062397358] Future Scheduled 2023-02-09 [facility] Test 10:57:52 malignant neoplasm of colon (procedure) [code = 776090771] Future Scheduled 2023-02-09 [facility] Test 10:57:52 malignant neoplasm of colon (procedure) [code = 054752627] Future Scheduled 2023-02-09 [facility] [facility] Test 10:57:52 (#1) [code = COVID-19 VACCINE (#1)] Future Scheduled 2023-02-09 [facility] 10:57:52 screening (procedure) [code = 846317086] Future Scheduled 2023-02-09 [facility] Test 10:57:52 malignant neoplasm of cervix (procedure) [code = 268554191] Future Scheduled 2023-02-09 BREAST CANCER [facility] Test 10:57:52 SCREENING [code = BREAST CANCER SCREENING] Future Scheduled 2023-02-09 [facility] Test 10:57:52 malignant neoplasm of colon (procedure) [code = 030376491] Future Scheduled 2023-02-09 [facility] Test 10:57:52 malignant neoplasm of colon (procedure) [code = 356597561] Future Scheduled 2023-02-09 [facility] 10:57:52 [code = INFLUENZA VACCINE] Future Scheduled 2023-02-09 [facility] 10:57:52 malignant neoplasm of colon (procedure) [code = 143834782] Future Scheduled 2023-02-09 [facility] Test 10:57:52 malignant neoplasm of colon (procedure) [code = 206038750] Future Scheduled 2023-02-09 [facility] Test 10:57:52 malignant neoplasm of colon (procedure) [code = 944533470] Future Scheduled 2023-02-09 COVID-[address] [facility] Test 10:57:52 (#1) [code = COVID-19 VACCINE (#1)] Future Scheduled 2023-02-09 [facility] 10:57:52 screening (procedure) [code = 377343078] Future Scheduled 2023-02-09 [facility] Test 10:57:52 malignant neoplasm of cervix (procedure) [code = 529192046] Future Scheduled 2023-02-09 BREAST CANCER [facility] Test 10:57:52 SCREENING [code = BREAST CANCER SCREENING] Future Scheduled 2023-02-09 [facility] Test 10:57:52 malignant neoplasm of colon (procedure) [code = 544167327] Future Scheduled 2023-02-09 [facility] Test 10:57:52 malignant neoplasm of colon (procedure) [code = 790138507] Future Scheduled 2023-02-09 [facility] 10:57:52 [code = INFLUENZA VACCINE] Future Scheduled 2023-02-09 [facility] Test 10:57:52 malignant neoplasm of colon (procedure) [code = 638130483] Future Scheduled 2023-02-09 [facility] Test 10:57:52 malignant neoplasm of colon (procedure) [code = 711091619] Future Scheduled 2023-02-09 [facility] Test 10:57:52 malignant neoplasm of colon (procedure) [code = 702786647] Future Scheduled 2023-02-09 COVID-[address] [facility] Test 10:57:52 (#1) [code = COVID-19 VACCINE (#1)] Future Scheduled 2023-02-09 [facility] 10:57:52 screening (procedure) [code = 160949736] Future Scheduled 2023-02-09 [facility] 10:57:52 malignant neoplasm of cervix (procedure) [code = 384432359] Future Scheduled 2023-02-09 BREAST CANCER [facility] Test 10:57:52 SCREENING [code = BREAST CANCER SCREENING] Future Scheduled 2023-02-09 [facility] Test 10:57:52 malignant neoplasm of colon (procedure) [code = 307214957] Future Scheduled 2023-02-09 [facility] Test 10:57:52 malignant neoplasm of colon (procedure) [code = 484783497] Future Scheduled 2023-02-09 [facility] 10:57:52 [code = INFLUENZA VACCINE] Future Scheduled 2023-02-09 [facility] 10:57:52 malignant neoplasm of colon (procedure) [code = 088148059] Future Scheduled 2023-02-09 [facility] Test 10:57:52 malignant neoplasm of colon (procedure) [code = 804563935] Future Scheduled 2023-02-09 [facility] Test 10:57:52 malignant neoplasm of colon (procedure) [code = 643072864] Future Scheduled 2023-02-09 COVID-[address] [facility] Test 10:57:52 (#1) [code = COVID-19 VACCINE (#1)] Future Scheduled 2023-02-09 [facility] 10:57:52 screening (procedure) [code = 240013574] Future Scheduled 2023-02-09 [facility] 10:57:52 malignant neoplasm of cervix (procedure) [code = 091048866] Future Scheduled 2023-02-09 BREAST CANCER [facility] Test 10:57:52 SCREENING [code = BREAST CANCER SCREENING] Future Scheduled 2023-02-09 [facility] Test 10:57:52 malignant neoplasm of colon (procedure) [code = 373073468] Future Scheduled 2023-02-09 [facility] Test 10:57:52 malignant neoplasm of colon (procedure) [code = 542357757] Future Scheduled 2023-02-09 [facility] 10:57:52 [code = INFLUENZA VACCINE] Future Scheduled 2023-02-09 [facility] 10:57:52 malignant neoplasm of colon (procedure) [code = 313747264] Future Scheduled 2023-02-09 [facility] 10:57:52 malignant neoplasm of colon (procedure) [code = 410136156] Future Scheduled 2023-02-09 [facility] 10:57:52 malignant neoplasm of colon (procedure) [code = 549032189] Future Scheduled 2023-02-09 [facility] 10:57:52 (#1) [code = COVID-19 VACCINE (#1)] Future Scheduled 2023-02-09 [facility] 10:57:52 screening (procedure) [code = 538946242] Future Scheduled 2023-02-09 [facility] 10:57:52 malignant neoplasm of cervix (procedure) [code = 287981935] Future Scheduled 2023-02-09 BREAST CANCER [facility] Test 10:57:52 SCREENING [code = BREAST CANCER SCREENING] Future Scheduled 2023-02-09 [facility] Test 10:57:52 malignant neoplasm of colon (procedure) [code = 986442562] Future Scheduled 2023-02-09 [facility] Test 10:57:52 malignant neoplasm of colon (procedure) [code = 360030289] Future Scheduled 2023-02-09 [facility] 10:57:52 [code = INFLUENZA VACCINE] Future Scheduled 2022-12-21 [facility] 13:47:21 (#1) [code = COVID-19 VACCINE (#1)] Future Scheduled 2022-12-21 [facility] 13:47:21 screening (procedure) [code = 121855721] Future Scheduled 2022-12-21 [facility] 13:47:21 malignant neoplasm of cervix (procedure) [code = 146699290] Future Scheduled 2022-12-21 BREAST CANCER [facility] Test 13:47:21 SCREENING [code = BREAST CANCER SCREENING] Future Scheduled 2022-12-21 [facility] 13:47:21 [code = INFLUENZA VACCINE] Future Scheduled 2022-10-29 [facility] 14:01:19 (#1) [code = COVID-19 VACCINE (#1)] Future Scheduled 2022-10-29 [facility] 14:01:19 screening (procedure) [code = 190061802] Future Scheduled 2022-10-29 [facility] 14:01:19 malignant neoplasm of cervix (procedure) [code = 686520045] Future Scheduled 2022-10-29 BREAST CANCER [facility] Test 14:01:19 SCREENING [code = BREAST CANCER SCREENING] Future Scheduled 2022-10-29 [facility] 14:01:19 [code = INFLUENZA VACCINE] Future Scheduled 2022-10-29 COVID-[address] [facility] Test 14:01:19 (#1) [code = COVID-19 VACCINE (#1)] Future Scheduled 2022-10-29 [facility] 14:01:19 screening (procedure) [code = 733013464] Future Scheduled 2022-10-29 [facility] 14:01:19 malignant neoplasm of cervix (procedure) [code = 334162786] Future Scheduled 2022-10-29 BREAST CANCER [facility] Test 14:01:19 SCREENING [code = BREAST CANCER SCREENING] Future Scheduled 2022-10-29 [facility] 14:01:19 [code = INFLUENZA VACCINE] Future Scheduled 2022-06-30 [facility] 13:24:39 (#1) [code = COVID-19 VACCINE (#1)] Future Scheduled 2022-06-30 [facility] 13:24:39 screening (procedure) [code = 470372195] Future Scheduled 2022-06-30 [facility] 13:24:39 malignant neoplasm of cervix (procedure) [code = 573452035] Future Scheduled 2022-06-30 BREAST CANCER [facility] Test 13:24:39 SCREENING [code = BREAST CANCER SCREENING] Future Scheduled 2022-06-30 [facility] 13:24:39 [code = INFLUENZA VACCINE] Future Scheduled 2022-06-30 [facility] 13:24:39 (#1) [code = COVID-19 VACCINE (#1)] Future Scheduled 2022-06-30 [facility] 13:24:39 screening (procedure) [code = [id number]] Future Scheduled 2022-06-30 Screening for [facility] Test 13:24:39 malignant neoplasm of cervix (procedure) [code = [id number]] Future Scheduled 2022-06-30 BREAST CANCER [facility] Test 13:24:39 SCREENING [code = BREAST CANCER SCREENING] Future Scheduled 2022-06-30 [facility] 13:24:39 [code = INFLUENZA VACCINE] Future Scheduled 2022-06-30 COVID-19 [facility]ACCINE [facility] 13:24:39 (#1) [code = COVID-19 VACCINE (#1)] Future Scheduled 2022-06-30 [facility] 13:24:39 screening (procedure) [code = [id number]] Future Scheduled 2022-06-30 Screening for [facility] 13:24:39 malignant neoplasm of cervix (procedure) [code = 672805669] Future Scheduled 2022-06-30 BREAST CANCER [facility] Test 13:24:39 SCREENING [code = BREAST CANCER SCREENING] Future Scheduled 2022-06-30 [facility] 13:24:39 [code = INFLUENZA VACCINE] Future Scheduled 2022-05-12 HEPATITIS B [facility] 14:10:29 VACCINES (1 of 3 - 3-dose series) [code = HEPATITIS B VACCINES (1 of 3 - 3-dose series)] Future [facility] 2022[facility]05[facility]12 [facility] (#1[facility] [code = COVID-19 VACCINE (#1)] Future Scheduled 2022-05-12 [facility] 14:10:29 screening (procedure) [code = 855766561] Future Scheduled 2022-05-12 Screening for [facility] Test 14:10:29 malignant neoplasm of cervix (procedure) [code = 786152827] Future Scheduled 2022-05-12 BREAST CANCER [facility] Test 14:10:29 SCREENING [code = BREAST CANCER SCREENING] Future Scheduled 2022-05-12 [facility] 14:10:29 [code = INFLUENZA VACCINE] Future Scheduled 2022-05-12 [facility]ITIS B [facility] 14:10:29 VACCINES (1 of 3 - 3-dose series) [code = HEPATITIS B VACCINES (1 of 3 - 3-dose series)] Future Scheduled 2022-05-12 [facility]:10[facility] (#1) [code = COVID-19 VACCINE (#1)] Future Scheduled 2022-05-12 [facility] 14:10:29 screening (procedure) [code = 592832129] Future Scheduled 2022-05-12 Screening for [facility] Test 14:10:29 malignant neoplasm of cervix (procedure) [code = 583317468] Future Scheduled 2022-05-12 BREAST CANCER [facility] Test 14:10:29 SCREENING [code = BREAST CANCER SCREENING] Future Scheduled 2022-05-12 [facility]FLUENZA VACCINE [facility] Test 14:10:29 [code = INFLUENZA VACCINE] Future Scheduled 2022-05-12 [facility]IS B [facility] 14:10:29 VACCINES (1 of 3 - 3-dose series) [code = HEPATITIS B VACCINES (1 of 3 - 3-dose series)] Future Scheduled 2022-05-12 [facility]:10[facility] (#1) [code = COVID-19 VACCINE (#1)] Future Scheduled 2022-05-12 [facility] 14:10:29 screening (procedure) [code = 808210580] Future Scheduled 2022-05-12 Screening for [facility] Test 14:10:29 malignant neoplasm of cervix (procedure) [code = 444779044] Future Scheduled 2022-05-12 BREAST CANCER [facility] Test 14:10:29 SCREENING [code = BREAST CANCER SCREENING] Future Scheduled 2022-05-12 INFLUENZA VACCINE [facility] Test 14:10:29 [code = INFLUENZA VACCINE] Future Scheduled 2022-05-12 [facility] B [facility] 14:10:29 VACCINES (1 of 3 - 3-dose series) [code = HEPATITIS B VACCINES (1 of 3 - 3-dose series)] Future Scheduled 2022-05-12 [facility]:10[facility] (#1) [code = COVID-19 VACCINE (#1)] Future Scheduled 2022-05-12 [facility] 14:10:29 screening (procedure) [code = 653455366] Future Scheduled 2022-05-12 Screening for [facility] Test 14:10:29 malignant neoplasm of cervix (procedure) [code = 926057264] Future Scheduled 2022-05-12 BREAST CANCER [facility] Test 14:10:29 SCREENING [code = BREAST CANCER SCREENING] Future Scheduled 2022-05-12 [facility] 14:10:29 [code = INFLUENZA VACCINE] Future Scheduled 2022-04-12 [facility] 08:53:27 screening (procedure) [code = 500608196] Future Scheduled 2022-04-12 Screening for [facility] 08:53:27 malignant neoplasm of cervix (procedure) [code = 499477585] Future Scheduled 2022-04-12 BREAST CANCER [facility] Test 08:53:27 SCREENING [code = BREAST CANCER SCREENING] Future Scheduled 2022-04-12 [facility]:53:27 [code = INFLUENZA VACCINE] Future Scheduled 2022-04-12 [facility]IS [facility] 08:53:27 VACCINES (1 of 3 - 3-dose series) [code = HEPATITIS B VACCINES (1 of 3 - 3-dose series)] Future Scheduled 2022-04-12 [facility] 08:[facility] (#1) [code = COVID-19 VACCINE (#1)] Future Scheduled 2022-03-16 [facility]IS B [facility] 11:35:00 VACCINES (1 of 3 - 3-dose series) [code = HEPATITIS B VACCINES (1 of 3 - 3-dose series)] Future Scheduled 2022-03-16 COVID-19 [facility]ACCINE [facility] Test 11:35:00 (#1) [code = COVID-19 VACCINE (#1)] Future Scheduled 2022-03-16 [facility] 11:35:00 screening (procedure) [code = 876134188] Future Scheduled 2022-03-16 Scre[facility] for [facility] 11:35:00 malignant neoplasm of cervix (procedure) [code = 021922208] Future Scheduled 2022-03-16 BREAST CANCER [facility] Test 11:35:00 SCREENING [code = BREAST CANCER SCREENING] Future Scheduled 2022-03-16 [facility]:00 [code = INFLUENZA VACCINE] Future Scheduled 2022-03-16 [facility] 11:35:00 VACCINES (1 of 3 - 3-dose series) [code = HEPATITIS B VACCINES (1 of 3 - 3-dose series)] Future Scheduled 2022-03-16 COVID-19 VACCINE [facility] Test 11:35:00 (#1) [code = COVID-19 VACCINE (#1)] Future Scheduled 2022-03-16 [facility] 11:35:00 screening (procedure) [code = 310364690] Future Scheduled 2022-03-16 Screening for [facility] Test 11:35:00 malignant neoplasm of cervix (procedure) [code = 849600375] Future Scheduled 2022-03-16 BREAST CANCER [facility] Test 11:35:00 SCREENING [code = BREAST CANCER SCREENING] Future Scheduled 2022-03-16 INFLUENZA VACCINE [facility] Test 11:35:00 [code = INFLUENZA VACCINE] Future Scheduled 2022-03-09 [facility]ITIS B [facility] 12:08:14 VACCINES (1 of 3 - 3-dose series) [code = HEPATITIS B VACCINES (1 of 3 - 3-dose series)] Future Scheduled 2022-03-09 COVID-19 VACCINE [facility] Test 12:08:14 (#1) [code = COVID-19 VACCINE (#1)] Future Scheduled 2022-03-09 [facility] 12:08:14 screening (procedure) [code = 529031487] Future Scheduled 2022-03-09 Screening for [facility] Test 12:08:14 malignant neoplasm of cervix (procedure) [code = 098812463] Future Scheduled 2022-03-09 BREAST CANCER [facility] Test 12:08:14 SCREENING [code = BREAST CANCER SCREENING] Future Scheduled 2022-03-09 INFLUENZA VACCINE [facility] Test 12:08:14 [code = INFLUENZA VACCINE] Future Scheduled 2022-03-09 [facility]ITIS B [facility] 12:08:14 VACCINES (1 of 3 - 3-dose series) [code = HEPATITIS B VACCINES (1 of 3 - 3-dose series)] Future Scheduled 2022-03-09 [facility] [facility] [facility] 12:08:14 (#1) [code = COVID-19 VACCINE (#1)] Future Scheduled 2022-03-09 [facility] 12:08:14 screening (procedure) [code = 767025377] Future Scheduled 2022-03-09 [facility] 12:08:14 malignant neoplasm of cervix (procedure) [code = 015582787] Future Scheduled 2022-03-09 BREAST CANCER [facility] Test 12:08:14 SCREENING [code = BREAST CANCER SCREENING] Future Scheduled 2022-03-09 [facility]INE [facility] 12:08:14 [code = INFLUENZA VACCINE] Future Scheduled 2022-03-09 [facility]ITIS B [facility] 12:08:14 VACCINES (1 of 3 - 3-dose series) [code = HEPATITIS B VACCINES (1 of 3 - 3-dose series)] Future Scheduled 2022-03-09 [facility] 12:08:14 (#1) [code = COVID-19 VACCINE (#1)] Future Scheduled 2022-03-09 [facility] 12:08:14 screening (procedure) [code = 112921670] Future Scheduled 2022-03-09 [facility] 12:08:14 malignant neoplasm of cervix (procedure) [code = 164587440] Future Scheduled 2022-03-09 BREAST CANCER [facility] Test 12:08:14 SCREENING [code = BREAST CANCER SCREENING] Future Scheduled 2022-03-09 [facility]INE [facility] 12:08:14 [code = INFLUENZA VACCINE] Goal Plan of Care Note [code = 61307-4] Goal Plan of Care Note [code = 50482-5] Goal Plan of Care Note [code = 52874-6] Goal Plan of Care Note [code = 14184-7] Goal Plan of Care Note [code = 03438-5] Goal Plan of Care Note [code = 41153-6] Goal Plan of Care Note [code = 77554-4] Goal Plan of Care Note [code = 78505-6] Goal Plan of Care Note [code = 97300-8] Goal Plan of Care Note [code = 44077-5] Goal Plan of Care Note [code = 90342-7] Goal Plan of Care Note [code = 59540-6] Goal Plan of Care Note [code = 26979-9] Goal Plan of Care Note [code = 55892-9] Goal Plan of Care Note [code = 18696-7] Goal Plan of Care Note [code = 80942-0] Goal Plan of Care Note [code = 48424-9] Goal Plan of Care Note [code = 53294-5] Goal Plan of Care Note [code = 43892-6] Goal Plan of Care Note [code = 72918-9] Goal Plan of Care Note [code = 97649-2] Goal Plan of Care Note [code = 08063-3] Goal Plan of Care Note [code = 16052-9] Goal Plan of Care Note [code = 55477-5] Goal Plan of Care Note [code = 83252-6] Goal Plan of Care Note [code = 54063-7] Goal Plan of Care Note [code = 04501-6] Goal Plan of Care Note [code = 31194-6] Goal Plan of Care Note [code = 78418-1] Goal Plan of Care Note [code = 76415-1] Goal Plan of Care Note [code = 28273-9] Goal Plan of Care Note [code = 48683-5] Goal Plan of Care Note [code = 61299-0] Goal Plan of Care Note [code = 07234-2] Goal Plan of Care Note [code = 27313-3] Goal Plan of Care Note [code = 43601-4] Goal Plan of Care Note [code = 75082-8] Goal Plan of Care Note [code = 55856-0] Goal Plan of Care Note [code = 47015-4] Goal Plan of Care Note [code = 38590-3] Goal Plan of Care Note [code = 22277-6] Goal Plan of Care Note [code = 32961-9] Goal Plan of Care Note [code = 88824-5] Goal Plan of Care Note [code = 63402-5] Goal Plan of Care Note [code = 46561-2] Goal Plan of Care Note [code = 85119-6] Goal Plan of Care Note [code = 62454-3] Goal Plan of Care Note [code = 63055-2] Goal Plan of Care Note [code = 06480-3] Goal Plan of Care Note [code = 51254-5] Goal Plan of Care Note [code = 44058-5] Goal Plan of Care Note [code = 94800-7] Goal Plan of Care Note [code = 96615-3] Goal Plan of Care Note [code = 67116-1] Goal Plan of Care Note [code = 30642-6] Goal Plan of Care Note [code = 13514-4] Goal Plan of Care Note [code = 43001-6] Goal Plan of Care Note [code = 97116-9] Goal Plan of Care Note [code = 50496-7] Goal Plan of Care Note [code = 14837-0] Goal Plan of Care Note [code = 63620-3] Goal Plan of Care Note [code = 87421-8] Goal Plan of Care Note [code = 89345-8] Goal Plan of Care Note [code = 43681-1] Goal Plan of Care Note [code = 32601-4] Goal Plan of Care Note [code = 06616-4] Goal Plan of Care Note [code = 72886-4] Goal Plan of Care Note [code = 17375-4] Goal Plan of Care Note [code = 63963-5] Goal Plan of Care Note [code = 88989-1] Goal Plan of Care Note [code = 59988-8] Goal Plan of Care Note [code = 77764-6] Goal Plan of Care Note [code = 13897-1] Goal Plan of Care Note [code = 24215-9] Goal Plan of Care Note [code = 39710-7] Goal Plan of Care Note [code = 53848-9] Goal Plan of Care Note [code = 21493-4] Goal Plan of Care Note [code = 81233-8] Goal Plan of Care Note [code = 10740-5] Goal Plan of Care Note [code = 20582-4] Goal Plan of Care Note [code = 36156-3] Goal Plan of Care Note [code = 43467-7] Goal Plan of Care Note [code = 28301-8] Goal Plan of Care Note [code = 93877-8] Goal Plan of Care Note [code = 56312-4] Goal Plan of Care Note [code = 45737-4] Goal Plan of Care Note [code = 78990-9] Goal Plan of Care Note [code = 86914-8] Goal Plan of Care Note [code = 91518-3] Goal Plan of Care Note [code = 91950-5] Goal Plan of Care Note [code = 03604-4] Goal Plan of Care Note [code = 58653-7] Goal Plan of Care Note [code = 01135-4] Goal Plan of Care Note [code = 15086-9] Goal Plan of Care Note [code = 52428-0] Goal Plan of Care Note [code = 93835-2] Goal Plan of Care Note [code = 59201-2] Goal Plan of Care Note [code = 69540-1] Goal Plan of Care Note [code = 16481-3] Goal Plan of Care Note [code = 79454-1] Goal Plan of Care Note [code = 29409-0] Goal Plan of Care Note [code = 60542-6] Goal Plan of Care Note [code = 65963-6] Goal Plan of Care Note [code = 57415-3] Goal Plan of Care Note [code = 62250-3] Goal Plan of Care Note [code = 03618-8] Goal Plan of Care Note [code = 92398-7] Goal Plan of Care Note [code = 27587-2] Goal Plan of Care Note [code = 53498-7] Goal Plan of Care Note [code = 52015-5] Goal Plan of Care Note [code = 18751-7] Goal Plan of Care Note [code = 33508-8] Goal Plan of Care Note [code = 00339-4] Goal Plan of Care Note [code = 28223-4] Goal Plan of Care Note [code = 13755-8] Goal Plan of Care Note [code = 27016-9] Goal Plan of Care Note [code = 26741-5] Goal Plan of Care Note [code = 58444-2] Goal Plan of Care Note [code = 22549-6] Goal Plan of Care Note [code = 97758-5] Goal Plan of Care Note [code = 57700-9] Goal Plan of Care Note [code = 91722-6] Goal Plan of Care Note [code = 42784-8] Goal Plan of Care Note [code = 41786-2] Goal Plan of Care Note [code = 74114-3] Goal Plan of Care Note [code = 50866-3] Goal Plan of Care Note [code = 26709-9] Goal Plan of Care Note [code = 25374-4] Goal Plan of Care Note [code = 77370-7] Goal Plan of Care Note [code = 78826-3] Goal Plan of Care Note [code = 25450-2] Goal Plan of Care Note [code = 64036-4] Goal Plan of Care Note [code = 90936-4] Goal Plan of Care Note [code = 21940-8] Goal Plan of Care Note [code = 40778-2] Goal Plan of Care Note [code = 59180-1] Goal Plan of Care Note [code = 54238-6] Goal Plan of Care Note [code = 21330-4] Goal Plan of Care Note [code = 10352-9] Goal Plan of Care Note [code = 16210-1] Goal Plan of Care Note [code = 33208-6] Goal Plan of Care Note [code = 66539-2] Goal Plan of Care Note [code = 42722-5] Goal Plan of Care Note [code = 47604-8] Goal Plan of Care Note [code = 45923-4] Goal Plan of Care Note [code = 70639-6] Goal Plan of Care Note [code = 20661-7] Goal Plan of Care Note [code = 68142-5] Goal Plan of Care Note [code = 85651-3] Goal Plan of Care Note [code = 06534-8] Goal Plan of Care Note [code = 15938-8] Goal Plan of Care Note [code = 34855-8] Goal Plan of Care Note [code = 41401-3] Goal Plan of Care Note [code = 83616-6] Goal Plan of Care Note [code = 67017-0] Goal Plan of Care Note [code = 04780-0] Goal Plan of Care Note [code = 50512-3] Goal Plan of Care Note [code = 01165-5] Goal Plan of Care Note [code = 77736-4] Goal Plan of Care Note [code = 60170-5] Goal Plan of Care Note [code = 14652-9] Goal Plan of Care Note [code = 06898-1] Goal Plan of Care Note [code = 67365-5] Goal Plan of Care Note [code = 27381-2] Goal Plan of Care Note [code = 00858-8] Goal Plan of Care Note [code = 62470-3] Goal Plan of Care Note [code = 04523-6] Goal Plan of Care Note [code = 16506-6] Goal Plan of Care Note [code = 96808-0] Goal Plan of Care Note [code = 14157-5] Goal Plan of Care Note [code = 31268-8] Goal Plan of Care Note [code = 14440-6] Goal Plan of Care Note [code = 54398-9] Goal Plan of Care Note [code = 04451-1] Goal Plan of Care Note [code = 38990-5] Goal Plan of Care Note [code = 55580-0] Goal Plan of Care Note [code = 21677-2] Goal Plan of Care Note [code = 28696-5] Goal Plan of Care Note [code = 43538-9] Goal Plan of Care Note [code = 34894-9] Goal Plan of Care Note [code = 50434-3] Goal Plan of Care Note [code = 27781-7] Goal Plan of Care Note [code = 41778-8] Goal Plan of Care Note [code = 72967-3] Goal Plan of Care Note [code = 81407-0] Goal Plan of Care Note [code = 08998-2] Goal Plan of Care Note [code = 34491-5] Goal Plan of Care Note [code = 03503-6] Goal Plan of Care Note [code = 79931-6] Goal Plan of Care Note [code = 36062-9] Goal Plan of Care Note [code = 19927-9] Goal Plan of Care Note [code = 17121-4] Goal Plan of Care Note [code = 05527-1] Goal Plan of Care Note [code = 07508-6] Goal Plan of Care Note [code = 46118-9] Goal Plan of Care Note [code = 80901-8] Goal Plan of Care Note [code = 36663-9] Goal Plan of Care Note [code = 99759-9] Goal Plan of Care Note [code = 08422-4] Goal Plan of Care Note [code = 08444-5] Goal Plan of Care Note [code = 27796-3] Goal Plan of Care Note [code = 90757-5] Goal Plan of Care Note [code = 50580-0] Goal Plan of Care Note [code = 53598-5] Goal Plan of Care Note [code = 37127-4] Goal Plan of Care Note [code = 34605-9] Goal Plan of Care Note [code = 79777-9] Goal Plan of Care Note [code = 82676-1] Goal Plan of Care Note [code = 56016-9] Goal Plan of Care Note [code = 84947-7] Goal Plan of Care Note [code = 23863-9] Goal Plan of Care Note [code = 55656-5] Goal Plan of Care Note [code = 48682-4] Goal Plan of Care Note [code = 58060-5] Goal Plan of Care Note [code = 69811-5] Goal Plan of Care Note [code = 71904-5] Goal Plan of Care Note [code = 93074-5] Goal Plan of Care Note [code = 38930-2] Goal Plan of Care Note [code = 39524-2] Goal Plan of Care Note [code = 30903-3] Goal Plan of Care Note [code = 26138-1] Goal Plan of Care Note [code = 04069-2] Goal Plan of Care Note [code = 57430-0] Goal Plan of Care Note [code = 57390-2] Goal Plan of Care Note [code = 92206-8] Goal Plan of Care Note [code = 23000-0] Goal Plan of Care Note [code = 09629-5] Goal Plan of Care Note [code = 85422-7] Goal Plan of Care Note [code = 94812-8] Goal Plan of Care Note [code = 89544-1] Goal Plan of Care Note [code = 94225-6] Goal Plan of Care Note [code = 59063-3] Goal Plan of Care Note [code = 76773-8] Goal Plan of Care Note [code = 10721-3] Goal Plan of Care Note [code = 13676-2] Goal Plan of Care Note [code = 13884-9] Goal Plan of Care Note [code = 52686-4] Goal Plan of Care Note [code = 04030-4] Goal Plan of Care Note [code = 55332-8] Goal Plan of Care Note [code = 07865-3] Goal Plan of Care Note [code = 81021-3] Goal Plan of Care Note [code = 18605-5] Goal Plan of Care Note [code = 43259-9] Goal Plan of Care Note [code = 32138-3] Goal Plan of Care Note [code = 41461-4] Goal Plan of Care Note [code = 03226-8] Goal Plan of Care Note [code = 70235-4] Goal Plan of Care Note [code = 29810-7] Goal Plan of Care Note [code = 57668-8] Goal Plan of Care Note [code = 89075-3] Goal Plan of Care Note [code = 44057-9] Goal Plan of Care Note [code = 61359-6] Goal Plan of Care Note [code = 59037-9] Goal Plan of Care Note [code = 10211-2] Goal Plan of Care Note [code = 46758-2] Goal Plan of Care Note [code = 59393-6] Goal Plan of Care Note [code = 84846-2] Goal Plan of Care Note [code = 12803-6] Goal Plan of Care Note [code = 90094-5] Goal Plan of Care Note [code = 99504-0] Goal Plan of Care Note [code = 30674-9] Goal Plan of Care Note [code = 70679-1] Goal Plan of Care Note [code = 16299-1] Goal Plan of Care Note [code = 12587-8] Goal Plan of Care Note [code = 43834-3] Goal Plan of Care Note [code = 49073-4] Goal Plan of Care Note [code = 38151-9] Goal Plan of Care Note [code = 64824-9] Goal Plan of Care Note [code = 19784-2] Goal Plan of Care Note [code = 47458-9] Goal Plan of Care Note [code = 35058-9] Goal Plan of Care Note [code = 70981-3] Goal Plan of Care Note [code = 46756-4] Goal Plan of Care Note [code = 72445-2] Goal Plan of Care Note [code = 03838-6] Goal Plan of Care Note [code = 36368-6] Goal Plan of Care Note [code = 87812-9] Goal Plan of Care Note [code = 27214-9] Goal Plan of Care Note [code = 19749-4] Goal Plan of Care Note [code = 46563-1] Goal Plan of Care Note [code = 39911-9] Goal Plan of Care Note [code = 89665-6] Goal Plan of Care Note [code = 14501-7] Goal Plan of Care Note [code = 75763-2] Goal Plan of Care Note [code = 96820-5] Goal Plan of Care Note [code = 45477-5] Goal Plan of Care Note [code = 27891-2] Goal Plan of Care Note [code = 31310-5] Goal Plan of Care Note [code = 48674-6] Goal Plan of Care Note [code = 79013-1] Goal Plan of Care Note [code = 56506-2] Goal Plan of Care Note [code = 75268-0] Goal Plan of Care Note [code = 50421-7] Goal Plan of Care Note [code = 82875-2] Goal Plan of Care Note [code = 34466-7] Goal Plan of Care Note [code = 02678-7] Goal Plan of Care Note [code = 60912-3] Goal Plan of Care Note [code = 80187-7] Goal Plan of Care Note [code = 30855-1] Goal Plan of Care Note [code = 06985-9] Goal Plan of Care Note [code = 68632-4] Goal Plan of Care Note [code = 87495-2] Goal Plan of Care Note [code = 15792-6] Goal Plan of Care Note [code = 23818-6] Goal Plan of Care Note [code = 36559-8] Goal Plan of Care Note [code = 36512-0] Goal Plan of Care Note [code = 17396-9] Goal Plan of Care Note [code = 70710-6] Goal Plan of Care Note [code = 86869-1] Goal Plan of Care Note [code = 29643-9] Goal Plan of Care Note [code = 66138-0] Goal Plan of Care Note [code = 29337-0] Goal Plan of Care Note [code = 85614-3] Goal Plan of Care Note [code = 82633-9] Goal Plan of Care Note [code = 05755-9] Goal Plan of Care Note [code = 50585-1] Goal Plan of Care Note [code = 30723-1] Goal Plan of Care Note [code = 20502-5] Goal Plan of Care Note [code = 79703-8] Goal Plan of Care Note [code = 51008-8] Goal Plan of Care Note [code = 79206-6] Goal Plan of Care Note [code = 29781-6] Goal Plan of Care Note [code = 31742-4] Goal Plan of Care Note [code = 96852-9] Goal Plan of Care Note [code = 17525-3] Goal Plan of Care Note [code = 48906-9] Goal Plan of Care Note [code = 43061-0] Goal Plan of Care Note [code = 91201-6] Goal Plan of Care Note [code = 02606-4] Goal Plan of Care Note [code = 84622-1] Goal Plan of Care Note [code = 94646-2] Goal Plan of Care Note [code = 50468-8] Goal Plan of Care Note [code = 60483-0] Goal Plan of Care Note [code = 04095-8] Goal Plan of Care Note [code = 89973-3] Goal Plan of Care Note [code = 66428-5] Goal Plan of Care Note [code = 78055-0] Goal Plan of Care Note [code = 54591-0] Goal Plan of Care Note [code = 13929-2] Goal Plan of Care Note [code = 86443-2] Goal Plan of Care Note [code = 74991-5] Goal Plan of Care Note [code = 90035-5] Goal Plan of Care Note [code = 13324-5] Goal Plan of Care Note [code = 99858-9] Goal Plan of Care Note [code = 03393-1] Goal Plan of Care Note [code = 91130-0] Goal Plan of Care Note [code = 04310-8] Goal Plan of Care Note [code = 06030-5] Goal Plan of Care Note [code = 81190-0] Goal Plan of Care Note [code = 61309-8] Goal Plan of Care Note [code = 00098-7] Goal Plan of Care Note [code = 45280-6] Goal Plan of Care Note [code = 22063-2] Goal Plan of Care Note [code = 89346-7] Goal Plan of Care Note [code = 28310-5] Goal Plan of Care Note [code = 24385-6] Goal Plan of Care Note [code = 26260-0] Goal Plan of Care Note [code = 18629-1] Goal Plan of Care Note [code = 04697-6] Goal Plan of Care Note [code = 44504-6] Goal Plan of Care Note [code = 21688-2] Goal Plan of Care Note [code = 17184-9] Goal Plan of Care Note [code = 15841-5] Goal Plan of Care Note [code = 37652-7] Goal Plan of Care Note [code = 18416-8] Goal Plan of Care Note [code = 78894-8] Goal Plan of Care Note [code = 15721-4] Goal Plan of Care Note [code = 94398-7] Goal Plan of Care Note [code = 80663-1] Goal Plan of Care Note [code = 40348-5] Goal Plan of Care Note [code = 34457-6] Goal Plan of Care Note [code = 32615-3] Goal Plan of Care Note [code = 83693-6] Goal Plan of Care Note [code = 40822-2] Goal Plan of Care Note [code = 07729-7] Goal Plan of Care Note [code = 81150-3] Goal Plan of Care Note [code = 84285-7] Goal Plan of Care Note [code = 15068-0] Goal Plan of Care Note [code = 80773-4] Goal Plan of Care Note [code = 72206-0] Goal Plan of Care Note [code = 86966-1] Goal Plan of Care Note [code = 41300-3] Goal Plan of Care Note [code = 67448-1] Goal Plan of Care Note [code = 42775-1] Goal Plan of Care Note [code = 18603-4] Goal Plan of Care Note [code = 21801-1] Goal Plan of Care Note [code = 04067-8] Goal Plan of Care Note [code = 77893-9] Goal Plan of Care Note [code = 48559-7] Goal Plan of Care Note [code = 29668-8] Goal Plan of Care Note [code = 97022-1] Goal Plan of Care Note [code = 47232-5] Goal Plan of Care Note [code = 74476-6] Goal Plan of Care Note [code = 89127-5] Goal Plan of Care Note [code = 97585-7] Goal Plan of Care Note [code = 57507-2] Goal Plan of Care Note [code = 28250-9] Goal Plan of Care Note [code = 42002-5] Goal Plan of Care Note [code = 50465-2] Goal Plan of Care Note [code = 63302-3] Goal Plan of Care Note [code = 97182-0] Goal Plan of Care Note [code = 97406-1] Goal Plan of Care Note [code = 32988-9] Goal Plan of Care Note [code = 46620-1] Goal Plan of Care Note [code = 95496-7] Goal Plan of Care Note [code = 32576-3] Goal Plan of Care Note [code = 98617-4] Goal Plan of Care Note [code = 76075-4] Goal Plan of Care Note [code = 24231-4] Goal Plan of Care Note [code = 98866-9] Goal Plan of Care Note [code = 71188-0] Goal Plan of Care Note [code = 64676-9] Goal Plan of Care Note [code = 87956-6] Goal Plan of Care Note [code = 79393-7] Goal Plan of Care Note [code = 63459-2] Goal Plan of Care Note [code = 41115-0] Goal Plan of Care Note [code = 48048-7] Goal Plan of Care Note [code = 64714-5] Goal Plan of Care Note [code = 61361-6] Goal Plan of Care Note [code = 51730-6] Goal Plan of Care Note [code = 59725-8] Goal Plan of Care Note [code = 56034-2] Goal Plan of Care Note [code = 04151-3] Goal Plan of Care Note [code = 47350-1] Goal Plan of Care Note [code = 26504-3] Goal Plan of Care Note [code = 17121-9] Goal Plan of Care Note [code = 42444-7] Goal Plan of Care Note [code = 53635-6] Goal Plan of Care Note [code = 01786-5] Goal Plan of Care Note [code = 03655-7] Goal Plan of Care Note [code = 33083-4] Goal Plan of Care Note [code = 61339-3] Goal Plan of Care Note [code = 69801-0] Goal Plan of Care Note [code = 96654-2] Goal Plan of Care Note [code = 83085-7] Goal Plan of Care Note [code = 18892-6] Goal Plan of Care Note [code = 04700-5] Goal Plan of Care Note [code = 68901-8] Goal Plan of Care Note [code = 09171-1] Goal Plan of Care Note [code = 76084-2] Goal Plan of Care Note [code = 91846-9] Goal Plan of Care Note [code = 76212-7] Goal Plan of Care Note [code = 13008-0] Goal Plan of Care Note [code = 61921-1] Goal Plan of Care Note [code = 08800-7] Goal Plan of Care Note [code = 74947-4] Goal Plan of Care Note [code = 91146-5] Goal Plan of Care Note [code = 96749-5] Goal Plan of Care Note [code = 52408-2] Goal Plan of Care Note [code = 70466-6] Goal Plan of Care Note [code = 12848-8] Goal Plan of Care Note [code = 34296-3] Goal Plan of Care Note [code = 66565-4] Goal Plan of Care Note [code = 97619-4] Goal Plan of Care Note [code = 72944-8] Goal Plan of Care Note [code = 03435-4] Goal Plan of Care Note [code = 16844-8] Goal Plan of Care Note [code = 73629-5] Goal Plan of Care Note [code = 17511-1] Goal Plan of Care Note [code = 01330-7] Goal Plan of Care Note [code = 48750-9] Goal Plan of Care Note [code = 12463-5] Goal Plan of Care Note [code = 69416-5] Goal Plan of Care Note [code = 90383-9] Goal Plan of Care Note [code = 99343-6] Goal Plan of Care Note [code = 91491-6] Goal Plan of Care Note [code = 57285-2] Goal Plan of Care Note [code = 85257-1] Goal Plan of Care Note [code = 04125-7] Goal Plan of Care Note [code = 39604-2] Goal Plan of Care Note [code = 07196-3] Goal Plan of Care Note [code = 61621-4] Goal Plan of Care Note [code = 79556-8] Goal Plan of Care Note [code = 74985-9] Goal Plan of Care Note [code = 71810-2] Goal Plan of Care Note [code = 96212-0] Goal Plan of Care Note [code = 75810-7] Goal Plan of Care Note [code = 99974-1] Goal Plan of Care Note [code = 98714-2] Goal Plan of Care Note [code = 99689-6] Goal Plan of Care Note [code = 15747-9] Goal Plan of Care Note [code = 17111-0] Goal Plan of Care Note [code = 66927-8] Goal Plan of Care Note [code = 63884-4] Goal Plan of Care Note [code = 45410-4] Goal Plan of Care Note [code = 32002-3] Goal Plan of Care Note [code = 46555-0] Goal Plan of Care Note [code = 62309-3] Goal Plan of Care Note [code = 29828-9] Goal Plan of Care Note [code = 73395-1] Goal Plan of Care Note [code = 97586-0] Goal Plan of Care Note [code = 46726-8] Goal Plan of Care Note [code = 78376-0] Goal Plan of Care Note [code = 05940-9] Goal Plan of Care Note [code = 98402-2] Goal Plan of Care Note [code = 60689-0] Goal Plan of Care Note [code = 62074-0] Goal Plan of Care Note [code = 62197-7] Goal Plan of Care Note [code = 02470-0] Goal Plan of Care Note [code = 60899-7] Goal Plan of Care Note [code = 76934-7] Goal Plan of Care Note [code = 22038-9] Goal Plan of Care Note [code = 98592-8] Goal Plan of Care Note [code = 70916-5] Goal Plan of Care Note [code = 02605-1] Goal Plan of Care Note [code = 46222-4] Goal Plan of Care Note [code = 76167-9] Goal Plan of Care Note [code = 45986-3] Goal Plan of Care Note [code = 95281-2] Goal Plan of Care Note [code = 12445-8] Goal Plan of Care Note [code = 33712-9] Goal Plan of Care Note [code = 74665-9] Goal Plan of Care Note [code = 81471-7] Goal Plan of Care Note [code = 88168-1] Goal Plan of Care Note [code = 98960-5] Goal Plan of Care Note [code = 93814-4] Goal Plan of Care Note [code = 80622-9] Goal Plan of Care Note [code = 50702-7] Goal Plan of Care Note [code = 17501-6] Goal Plan of Care Note [code = 47026-2] Goal Plan of Care Note [code = 62885-2] Goal Plan of Care Note [code = 11779-1] Goal Plan of Care Note [code = 76884-5] Goal Plan of Care Note [code = 86895-6] Goal Plan of Care Note [code = 86976-1] Goal Plan of Care Note [code = 72031-5] Goal Plan of Care Note [code = 92961-1] Goal Plan of Care Note [code = 06356-6] Goal Plan of Care Note [code = 85489-8] Goal Plan of Care Note [code = 51767-9] Goal Plan of Care Note [code = 64799-3] Goal Plan of Care Note [code = 66631-6] Goal Plan of Care Note [code = 39587-5] Goal Plan of Care Note [code = 30790-1] Goal Plan of Care Note [code = 24728-5] Goal Plan of Care Note [code = 20269-8] Goal Plan of Care Note [code = 87159-2] Goal Plan of Care Note [code = 52332-5] Goal Plan of Care Note [code = 99339-7] Goal Plan of Care Note [code = 23102-7] Goal Plan of Care Note [code = 20802-6] Goal Plan of Care Note [code = 12419-9] Goal Plan of Care Note [code = 66232-7] Goal Plan of Care Note [code = 41538-8] Goal Plan of Care Note [code = 69675-6] Goal Plan of Care Note [code = 74443-6] Goal Plan of Care Note [code = 95855-9] Goal Plan of Care Note [code = 44412-3] Goal Plan of Care Note [code = 42347-4] Goal Plan of Care Note [code = 23700-3] Goal Plan of Care Note [code = 47927-9] Goal Plan of Care Note [code = 46539-4] Goal Plan of Care Note [code = 07917-2] Goal Plan of Care Note [code = 15538-3] Goal Plan of Care Note [code = 60001-5] Goal Plan of Care Note [code = 06686-1] Goal Plan of Care Note [code = 84199-3] Goal Plan of Care Note [code = 74256-4] Goal Plan of Care Note [code = 37887-2] Goal Plan of Care Note [code = 40127-5] Goal Plan of Care Note [code = 28153-4] Goal Plan of Care Note [code = 36666-7] Goal Plan of Care Note [code = 59001-2] Goal Plan of Care Note [code = 10950-4] Goal Plan of Care Note [code = 97946-5] Goal Plan of Care Note [code = 44288-0] Goal Plan of Care Note [code = 61345-0] Goal Plan of Care Note [code = 73247-1] Goal Plan of Care Note [code = 07242-5] Goal Plan of Care Note [code = 92454-8] Goal Plan of Care Note [code = 04615-4] Goal Plan of Care Note [code = 52721-2] Goal Plan of Care Note [code = 36277-0] Goal Plan of Care Note [code = 85851-0] Goal Plan of Care Note [code = 21521-2] Goal Plan of Care Note [code = 46874-9] Goal Plan of Care Note [code = 58724-5] Goal Plan of Care Note [code = 93894-4] Goal Plan of Care Note [code = 45695-5] Goal Plan of Care Note [code = 25202-8] Goal Plan of Care Note [code = 39650-3] Goal Plan of Care Note [code = 44393-9] Goal Plan of Care Note [code = 36416-1] Goal Plan of Care Note [code = 62456-9] Goal Plan of Care Note [code = 07646-2] Goal Plan of Care Note [code = 04346-7] Goal Plan of Care Note [code = 06009-1] Goal Plan of Care Note [code = 87152-0] Goal Plan of Care Note [code = 54065-6] Goal Plan of Care Note [code = 13291-7] Goal Plan of Care Note [code = 12004-8] Goal Plan of Care Note [code = 30592-1] Goal Plan of Care Note [code = 34979-4] Goal Plan of Care Note [code = 20690-4] Goal Plan of Care Note [code = 43452-9] Goal Plan of Care Note [code = 02127-4] Goal Plan of Care Note [code = 47296-1] Goal Plan of Care Note [code = 60664-1] Goal Plan of Care Note [code = 96731-1] Goal Plan of Care Note [code = 56628-5] Goal Plan of Care Note [code = 97386-9] Goal Plan of Care Note [code = 64714-7] Goal Plan of Care Note [code = 48245-3] Goal Plan of Care Note [code = 62663-5] Goal Plan of Care Note [code = 23919-9] Goal Plan of Care Note [code = 59611-7] Goal Plan of Care Note [code = 64797-8] Goal Plan of Care Note [code = 67172-2] Goal Plan of Care Note [code = 01122-8] Goal Plan of Care Note [code = 33618-3] Goal Plan of Care Note [code = 24375-9] Goal Plan of Care Note [code = 48930-4] Goal Plan of Care Note [code = 13712-6] Goal Plan of Care Note [code = 71631-4] Goal Plan of Care Note [code = 26750-8] Goal Plan of Care Note [code = 84982-3] Goal Plan of Care Note [code = 50126-7] Goal Plan of Care Note [code = 72739-6] Goal Plan of Care Note [code = 45130-3] Goal Plan of Care Note [code = 31821-0] Goal Plan of Care Note [code = 70486-6] Goal Plan of Care Note [code = 46364-5] Goal Plan of Care Note [code = 75890-5] Goal Plan of Care Note [code = 93613-4] Goal Plan of Care Note [code = 74258-9] Goal Plan of Care Note [code = 68256-0] Goal Plan of Care Note [code = 64012-3] Goal Plan of Care Note [code = 48481-6] Goal Plan of Care Note [code = 70671-1] Goal Plan of Care Note [code = 61012-9] Goal Plan of Care Note [code = 95421-4] Goal Plan of Care Note [code = 88563-8] Goal Plan of Care Note [code = 07943-6] Goal Plan of Care Note [code = 08062-4] Goal Plan of Care Note [code = 36208-9] Goal Plan of Care Note [code = 97753-1] Goal Plan of Care Note [code = 68970-1] Goal Plan of Care Note [code = 55875-8] Goal Plan of Care Note [code = 84317-4] Goal Plan of Care Note [code = 18535-0] Goal Plan of Care Note [code = 76145-4] Goal Plan of Care Note [code = 53318-9] Goal Plan of Care Note [code = 67773-3] Goal Plan of Care Note [code = 96977-0] Goal Plan of Care Note [code = 06128-8] Goal Plan of Care Note [code = 91903-0] Goal Plan of Care Note [code = 31878-8] Goal Plan of Care Note [code = 11772-6] Goal Plan of Care Note [code = 08694-6] Goal Plan of Care Note [code = 50391-3] Goal Plan of Care Note [code = 55154-9] Goal Plan of Care Note [code = 85385-6] Goal Plan of Care Note [code = 73405-5] Goal Plan of Care Note [code = 01370-8] Goal Plan of Care Note [code = 33995-7] Goal Plan of Care Note [code = 15663-3] Goal Plan of Care Note [code = 33856-5] Goal Plan of Care Note [code = 33874-0] Goal Plan of Care Note [code = 31380-6] Goal Plan of Care Note [code = 77125-8] Goal Plan of Care Note [code = 86754-0] Goal Plan of Care Note [code = 65079-0] Goal Plan of Care Note [code = 15967-2] Goal Plan of Care Note [code = 17235-4] Goal Plan of Care Note [code = 42099-8] Goal Plan of Care Note [code = 03432-5] Goal Plan of Care Note [code = 71800-5] Goal Plan of Care Note [code = 89944-2] Goal Plan of Care Note [code = 60598-4] Goal Plan of Care Note [code = 13932-9] Goal Plan of Care Note [code = 52785-8] Goal Plan of Care Note [code = 01547-3] Goal Plan of Care Note [code = 86480-5] Goal Plan of Care Note [code = 30394-1] Goal Plan of Care Note [code = 62836-3] Goal Plan of Care Note [code = 92897-6] Goal Plan of Care Note [code = 43233-9] Goal Plan of Care Note [code = 80170-0] Goal Plan of Care Note [code = 64441-1] Goal Plan of Care Note [code = 70021-9] Goal Plan of Care Note [code = 36437-0] Goal Plan of Care Note [code = 84089-4] Goal Plan of Care Note [code = 53534-4] Goal Plan of Care Note [code = 33447-3] Goal Plan of Care Note [code = 77919-0] Goal Plan of Care Note [code = 95360-7] Goal Plan of Care Note [code = 83068-0] Goal Plan of Care Note [code = 87585-4] Goal Plan of Care Note [code = 88912-6] Goal Plan of Care Note [code = 24983-1] Goal Plan of Care Note [code = 49720-4] Goal Plan of Care Note [code = 39321-3] Goal Plan of Care Note [code = 84969-4] Goal Plan of Care Note [code = 57941-1] Goal Plan of Care Note [code = 48368-2] Goal Plan of Care Note [code = 15005-6] Goal Plan of Care Note [code = 86454-3] Goal Plan of Care Note [code = 82682-7] Goal Plan of Care Note [code = 69053-0] Goal Plan of Care Note [code = 73099-6] Goal Plan of Care Note [code = 91850-7] Goal Plan of Care Note [code = 87063-6] Goal Plan of Care Note [code = 04610-5] Goal Plan of Care Note [code = 87044-0] Goal Plan of Care Note [code = 45756-1] Goal Plan of Care Note [code = 53020-0] Goal Plan of Care Note [code = 48254-2] Goal Plan of Care Note [code = 79797-5] Goal Plan of Care Note [code = 11271-8] Goal Plan of Care Note [code = 02980-0] Goal Plan of Care Note [code = 10335-2] Goal Plan of Care Note [code = 61863-6] Goal Plan of Care Note [code = 19075-2] Goal Plan of Care Note [code = 71919-3] Goal Plan of Care Note [code = 47898-3] Goal Plan of Care Note [code = 96766-6] Goal Plan of Care Note [code = 66208-5] Goal Plan of Care Note [code = 80060-3] Goal Plan of Care Note [code = 25155-9] Goal Plan of Care Note [code = 46698-4] Goal Plan of Care Note [code = 81641-3] Goal Plan of Care Note [code = 14584-3] Goal Plan of Care Note [code = 51569-8] Goal Plan of Care Note [code = 26215-8] Goal Plan of Care Note [code = 07549-6] Goal Plan of Care Note [code = 23899-6] Goal Plan of Care Note [code = 70960-7] Goal Plan of Care Note [code = 57270-8] Goal Plan of Care Note [code = 35734-1] Goal Plan of Care Note [code = 90906-6] Goal Plan of Care Note [code = 75811-8] Goal Plan of Care Note [code = 18587-9] Goal Plan of Care Note [code = 79955-0] Goal Plan of Care Note [code = 26604-2] Goal Plan of Care Note [code = 85118-7] Goal Plan of Care Note [code = 67302-8] Goal Plan of Care Note [code = 51374-2] Goal Plan of Care Note [code = 98368-3] Goal Plan of Care Note [code = 52763-0] Goal Plan of Care Note [code = 36288-4] Goal Plan of Care Note [code = 15810-2] Goal Plan of Care Note [code = 88208-1] Goal Plan of Care Note [code = 87707-0] Goal Plan of Care Note [code = 15065-2] Goal Plan of Care Note [code = 70790-0] Goal Plan of Care Note [code = 09668-8] Goal Plan of Care Note [code = 51418-1] Goal Plan of Care Note [code = 05933-4] Goal Plan of Care Note [code = 61760-4] Goal Plan of Care Note [code = 45259-1] Goal Plan of Care Note [code = 95536-4] Goal Plan of Care Note [code = 79484-9] Goal Plan of Care Note [code = 34071-1] Goal Plan of Care Note [code = 58210-3] Goal Plan of Care Note [code = 85672-8] Goal Plan of Care Note [code = 60699-3] Goal Plan of Care Note [code = 72188-6] Goal Plan of Care Note [code = 23129-8] Goal Plan of Care Note [code = 82424-2] Goal Plan of Care Note [code = 46266-9] Goal Plan of Care Note [code = 27432-5] Goal Plan of Care Note [code = 31055-3] Goal Plan of Care Note [code = 25307-8] Goal Plan of Care Note [code = 37887-6] Goal Plan of Care Note [code = 42557-5] Goal Plan of Care Note [code = 71101-1] Goal Plan of Care Note [code = 34368-7] Goal Plan of Care Note [code = 75447-2] Goal Plan of Care Note [code = 94345-3] Encounters Start End Encounter Admission Attending Care Care Encounter Source Date/Time Date/Time Type Type Clinicians Facility Department ID 2021-05-10 Emergency [facility] [id number] [facility] 15:04:50 [facility] 2021-05-08 Emergency [facility] [id number] [facility] QuirogaBebeto [facility]I [id number] [facility] 15:30:00 59 [facility] 2020-08-02 Inpatient [facility] CARISSA [id number] [facility] 13:01:00 80 [facility] 2020-02-13 Inpatient [facility] CARISSA [id number] [facility] 19:15:00 41 [facility] 2020-01-16 Inpatient ERICA Wilson [facility] SURG [id number] [facility] 16:00:00 Tomiko 97 [facility] 2023-07-06 2023-07-06 Outpatient ORLY THORPE ANDREEA BRAGA [id number] [facility] 15:45:00 15:45:00 Seybol d 2023-06-10 2023-06-10 Outpatient ORLY THORPE ANDREEA BRAGA [id number] [place] 15:30:00 15:30:00 Seybol d 2023-06-10 2023-06-10 Outpatient HUNDANDREEA Castaneda [id number] [place] 14:30:00 14:30:00 VIVI Seybol d 2023-06-07 2023-06-07 Outpatient ANDREEA PEOPLES [id number] [place] 08:15:00 08:15:00 NETO Seybol d 2023-06-07 2023-06-07 Outpatient ANDREEA PEOPLES [id number] [place] 00:00:00 00:00:00 NETO Seybol d 2023-05-26 2023-05-26 Outpatient ANDREEA PEOPLES [id number] [place] 00:00:00 00:00:00 NETO Seybol d 2023-05-25 2023-05-25 Outpatient ANDREEA PEOPLES [id number] [place] 14:00:00 14:00:00 NETO Seybol d 2023-05-25 2023-05-25 Outpatient LAB90 ANDREEA BRAGA [id number] [place] 08:25:00 08:25:00 Seybol d 2023-05-25 2023-05-25 Outpatient [facility] [id number] Huang 08:00:09 08:00:09 1115 F Quirino 2023-05-13 2023-05-13 Outpatient SONJA FROST [id number] [place] 13:40:00 13:40:00 Seybol d 2023-05-10 2023-05-10 Outpatient ANDREEA MCKEON [id number] [place] 14:40:00 14:40:00 ANGALIE Seybol d 2023-05-10 2023-05-10 Outpatient GC_GCBZW_Ka PRIV PRIV [id number] [facility] 00:00:00 00:00:00 diyala_S [id number] Medic al 2023-05-09 2023-05-09 Outpatient ANDREEA BRAGA [id number] [place] 15:35:00 15:35:00 Seybol d 2023-05-09 2023-05-09 Outpatient ANDREEA MCKEON [id number] [place] 15:00:00 15:00:00 ANGALIE Seybol d 2023-05-09 2023-05-09 Outpatient GC_GCBZW_Ka PRIV PRIV 276 [id number] [facility] 00:00:00 00:00:00 diyala_S [id number] Medic al 2023-05-06 2023-05-06 Outpatient NICK YOUSSEF ANDREEA BRAGA [id number] [place] 12:15:00 12:15:00 Seybol d 2023-05-06 2023-05-06 Outpatient ANDREEA PEOPLES [id number] [place] 00:00:00 00:00:00 NETO Seybol d 2023-05-05 2023-05-05 Outpatient ANDREEA PEOPLES [id number] [place] 00:00:00 00:00:00 NETO Seybol d 2023-05-03 2023-05-03 Patient Doctor ARLENE [id number] [facility] 00:00:00 00:00:00 Secure Msg Unassigned, BENITA 350.1.13.10 ity [facility] 4.2.7.2.686 Blake as [phone] [address] 2023-05-02 2023-05-02 Emergency X DARLIN, [facility] ERT [id number] [facility] 17:42:00 21:18:00 SADA diaz of [facility] 2023-05-02 2023-05-02 Emergency Darlin, [facility] [id number] Univers 17:42:00 21:18:00 Sada BARBER 350.1.13.10 ity [facility] 4.2.7.2.686 [facility] [phone] [facility] [address] 2023-04-29 2023-04-29 Outpatient ANDREEA PEOPLES [id number] [place] 14:00:00 14:00:00 NETO Seybol d 2023-04-15 2023-04-15 Outpatient ANDREEA EID [id number] [place] 00:00:00 00:00:00 NICOLÁS Seybol d 2023-04-11 2023-04-11 Outpatient ANDREEA PEOPLES [id number] [place] 16:30:00 16:30:00 NETO Seybol d 2023-04-09 2023-04-09 Outpatient ANDREEA BRAGA [id number] [place] 00:00:00 00:00:00 Seybol d 2023-04-08 2023-04-08 Outpatient PREANDREEA ROLLINS [id number] [place] 00:00:00 00:00:00 NETO Seybol d 2023-04-07 2023-04-07 Outpatient LAB90 ANDREEA BRAGA [id number] [place] 08:05:00 08:05:00 Seybol d 2023-04-01 2023-04-01 Outpatient ANDREEA PEOPLES [id number] [place] 00:00:00 00:00:00 NETO Seybol d 2023-03-30 2023-03-30 Outpatient OMAYRANADREEA GROSS [id number] [place] 13:15:00 13:15:00 AMNA Seybol d 2023-03-30 2023-03-30 Outpatient ANDREEA EID [id number] [place] 00:00:00 00:00:00 NICOLÁS Seybol d 2023-03-29 2023-03-29 Outpatient PREANDREEA ROLLINS [id number] [place] 16:15:00 16:15:00 NETO Seybol d 2023-03-24 2023-03-24 Outpatient PREANDREEA ROLLINS [id number] [place] 00:00:00 00:00:00 NETO Seybol d 2023-03-22 2023-03-22 Outpatient ANDREEA EID [id number] [place] 00:00:00 00:00:00 NICOLÁS Seybol d 2023-03-21 2023-03-21 Outpatient LAB90 ANDREEA BRAGA [id number] [place] 08:00:00 08:00:00 Seybol d 2023-03-18 2023-03-18 Outpatient MELONY ANDREEA BRAGA [id number] [place] 00:00:00 00:00:00 MD CASANDRA Seybol d 2023-03-18 2023-03-18 Outpatient ANDREEA PEOPLES [id number] [place] 00:00:00 00:00:00 NETO Seybol d 2023-03-09 2023-03-09 Outpatient ANDREEA BLOCK [id number] [place] 08:40:00 08:40:00 KAVYA Seybol d 2023-03-04 2023-03-04 Outpatient ANDREEA MINOR [id number] [place] 14:30:00 14:30:00 VALDEZ Seybol d 2023-03-02 2023-03-02 Outpatient ANDREEA EID [id number] [place] 00:00:00 00:00:00 NICOLÁS Seybol d 2023-03-01 2023-03-01 Outpatient SFA SFA [id number] Huang 11:57:21 11:57:21 0822 F Quirino 2023-02-28 2023-02-28 Outpatient ANDREEA RAIN [id number] [place] 15:45:00 15:45:00 ARLENE Seybol d 2023-02-18 2023-02-18 Outpatient ANDREEA MINOR [id number] [place] 00:00:00 00:00:00 VALDEZ Seybol d 2023-02-18 2023-02-18 Outpatient ANDREEA MINOR [id number] [place] 00:00:00 00:00:00 VALDEZ Seybol d 2023-02-17 2023-02-17 Outpatient LAB90 ANDREEA BRAGA [id number] [place] 17:15:00 17:15:00 Seybol d 2023-02-17 2023-02-17 Outpatient ANDREEA MINOR [id number] [place] 16:30:00 16:30:00 VALDEZ Seybol d 2023-02-16 2023-02-16 Outpatient SFA SFA [id number] Huang 13:31:17 13:31:17 0809 F Quirino 2023-02-16 2023-02-16 Outpatient PREANDREEA ROLLINS [id number] [place] 00:00:00 00:00:00 NETO Seybol d 2023-02-16 2023-02-16 Outpatient PREANDREEA ROLLINS [id number] [place] 00:00:00 00:00:00 NETO Seybol d 2023-02-10 2023-02-10 Outpatient PREANDREEA ROLLINS [id number] [place] 00:00:00 00:00:00 NETO Seybol d 2023-02-02 2023-02-02 Outpatient ORLY THORPE [id number] [place] 14:30:00 14:30:00 Seybol d 2023-02-02 2023-02-02 Outpatient PREANDREEA ROLLINS [id number] [place] 00:00:00 00:00:00 NETO Seybol d 2023-02-01 2023-02-01 Outpatient ZOYA GONZALEZ [id number] [place] 15:00:00 15:00:00 Seybol d 2023-02-01 2023-02-01 Outpatient ANDREEA EID [id number] [place] 14:30:00 14:30:00 NICOLÁS Seybol d 2023-01-10 2023-01-12 Outpatient X JOSE MACKINAC [facility] [id number] [facility] 07:31:00 11:08:00 GUDELIA diaz [facility] 2023-01-10 2023-01-12 Emergency Schoenstein, Ngoc [facility] [id number] [facility] 07:31:00 11:08:00 [id number] [id number] [address] 2023-01-04 2023-01-04 Outpatient ORLY THORPE [id number] [place] 15:45:00 15:45:00 Seybol d 2022-12-27 2022-12-27 Outpatient PREZANakul, ANDREEA BRAGA [id number] [place] 00:00:00 00:00:00 NETO Seybol d 2022-12-22 2022-12-22 Outpatient PREZANakul, ANDREEA BRAGA [id number] [place] 00:00:00 00:00:00 NETO Seybol d 2022-12-21 2022-12-21 Outpatient RAGINI, ANDREEA BRAGA [id number] [place] 14:15:00 14:15:00 NICOLÁS Seybol d 2022-12-17 2022-12-17 Outpatient LAB90 ANDREEA BRAGA [id number] [place] 15:45:00 15:45:00 Seybol d 2022-12-17 2022-12-17 Outpatient PREZANakul, ANDREEA BRAGA [id number] [place] 15:00:00 15:00:00 NETO Seybol d 2022-12-15 2022-12-15 Outpatient LAB90 ANDREEA BRAGA [id number] [place] 08:30:00 08:30:00 Seybol d 2022-12-07 2022-12-07 Outpatient MYEVELYN BRAGA [id number] [place] 00:00:00 00:00:00 MD CASANDAR Seybol d 2022-11-30 2022-11-30 Outpatient ANDREEA MCCLELLAND [id number] [place] 13:50:00 13:50:00 JUDI Seybol d 2022-11-29 2022-11-29 Outpatient ANDREEA MORRISON [id number] [place] 00:00:00 00:00:00 IVELISSE Seybol d 2022-11-29 2022-11-29 Outpatient ANDREEA BRAGA [id number] [place] 00:00:00 00:00:00 Seybol d 2022-11-29 2022-11-29 Outpatient ANDREEA PEOPLES [id number] [place] 00:00:00 00:00:00 NETO Seybol d 2022-11-24 2022-11-24 Outpatient PREANDREEA ROLLINS [id number] [place] 15:00:00 15:00:00 NETO Seybol d 2022-11-03 2022-11-03 Emergency Loni [facility] [id number] [facility] 08:26:00 11:02:00 Katelyn BARBER [id number] i ty [facility] [id number] [facility] [facility] [phone] [place] [id number] Branch 2022-11-03 2022-11-03 Emergency X LONI [facility] ERT [id number] Univers 08:26:00 11:02:00 KATELYN diaz of [facility] 2022-11-01 2022-11-01 Outpatient [facility] [id number] Huang 16:16:49 16:16:49 0424 F Quirino 2022-11-01 2022-11-01 Outpatient ANDREEA PEOPLES [id number] Andreea 16:00:00 16:00:00 NETO Seybol d 2022-11-01 2022-11-01 Outpatient ANDREEA PEOPLES [id number] Andreea 00:00:00 00:00:00 NETO Seybol d 2022-10-27 2022-10-27 Outpatient ANDREEA ZAMORA [id number] Andreea 14:00:00 14:00:00 FABIO Seybol d 2022-10-26 2022-10-26 Outpatient ANDREEA PEOPLES [id number] Andreea 00:00:00 00:00:00 NETO Seybol d 2022-10-26 2022-10-26 Outpatient ANDREEA PEOPLES [id number] Andreea 00:00:00 00:00:00 NETO Seybol d 2022-10-22 2022-10-22 Outpatient ANDREEA EID [id number] Andreea 16:45:00 16:45:00 NICOLÁS Seybol d 2022-10-21 2022-10-21 Outpatient ORLY THORPE [id number] Andreea 10:00:00 10:00:00 Seybol d 2022-10-01 2022-10-01 Outpatient ANDREEA PEOPLES [id number] Adnreea 15:45:00 15:45:00 NETO Seybol d 2022-09-24 2022-09-24 Outpatient JARBRINK-SE ANDREEA BRAGA [id number] Andreea 15:00:00 15:00:00 YRIS AGUAYO Se 2022-09-21 2022-09-21 Outpatient PREZANakul, ANDREEA BRAGA [id number] [place]reea 15:00:00 15:00:00 NETO Seybol d 2022-09-20 2022-09-20 Outpatient PREZAANDREEA Mota [id number] Andreea 00:00:00 00:00:00 NETO Seybol d 2022-09-10 2022-09-10 Outpatient RAGINIANDREEA [id number] Andreea 10:30:00 10:30:00 NICOLÁS Seybol d 2022-09-09 2022-09-09 Outpatient PREANDREEA ROLLINS [id number] Andreea 00:00:00 00:00:00 NETO Seybol d 2022-09-09 2022-09-09 Outpatient PREZAANDREEA Mota [id number] Andreea 00:00:00 00:00:00 NETO Seybol d 2022-09-08 2022-09-08 Outpatient LAB90 ANDREEA BRAGA [id number] Andreea 08:00:00 08:00:00 Seybol d 2022-09-07 2022-09-07 Outpatient PREANDREEA ROLLINS [id number] Andreea 15:00:00 15:00:00 NETO Seybol d 2022-09-02 2022-09-02 Patient Doctor ARLENE 1.2.840.114 [id number] Univers 00:00:00 00:00:00 Secure Msg Unassigned, BENITA 350.1.13.10 ity of [place] [facility] 4.2.7.2.686 Blake as [phone] [place] [address] [address] 2022-09-01 2022-09-01 Transition JIE Hargrove 1.2.840.114 [id number] Univers 00:00:00 00:00:00 of Care Leslie RIVERA 350.1.13.10 i ty of [place].7.2.686 [place] [phone] [facility] [address] 2022-08-26 2022-08-30 Inpatient X KAMALA [facility] ANTONIO [id number] Univers 14:36:00 10:41:00 MERI diaz [facility] 2022-08-26 2022-08-30 [facility] Robert Lutz [facility] 1.2.840. 114 [id number] Univers 14:36:00 10:41:00 Encounter Meri Wray 350.1.13.10 [facility] 4.2.7.2.686 [facility] [phone] [facility] [address] 2022-07-09 2022-07-09 Outpatient [facility] [id number] Huang 09:41:12 09:41:12 1230 F Quirino 2022-07-09 2022-07-09 Outpatient [id number]- [id number] 9d [id number]-b 00:00:00 00:00:00 Visit f43s-3ux2 40c-4fc9-a -k0wl-809 8bb-636dec cxoe6540a f3044n 2022-06-23 2022-06-23 Outpatient ns6h58oo- [id number] ac 3x82nc-2 00:00:00 00:00:00 Visit 4n3w-79q7 p6o-64l9-s -z1d0-n83 7n4-u801hn 7im1e8459 6s9384 2022-06-21 2022-06-21 Emergency X LONI [facility] ERT [id number] Univers 17:30:00 23:11:00 KATELYN diaz [facility] 2022-06-21 2022-06-21 [facility] 1.2.692.212 [id number] Univers 17:30:00 23:11:00 Katelyn BARBER 350.1.13.10 i ty of [place] [facility].7.2.686 [facility] [phone] [facility] [address] 2022-06-18 2022-06-18 Outpatient SFA [facility] [id number] 022 Huang 10:29:22 10:29:22 1209 F Quirino 2022-06-18 2022-06-18 Outpatient 0ur6agh7- [id number] 3a p1qzq6-i 00:00:00 00:00:00 Visit oq1k-6oh3 f3r-3uu4-v -r830-y36 058-i5469w 05siuf050 vkr147 2022-06-17 2022-06-17 Outpatient SFA SFA [id number] 022 Huang 08:29:59 08:29:59 1208 F Quirino 2022-06-16 2022-06-16 Outpatient SFA SFA [id number] 022 Huang 15:41:26 15:41:26 1207 F Quirino 2022-06-16 2022-06-16 Outpatient 4x030s8r- [id number] 2f 426e3b-c 00:00:00 00:00:00 Visit dee3-4499 ee3-4499-9 -917d-e2d 17d-r6v244 71085955w 18664d 2022-06-04 2022-06-04 Outpatient SFA SFA [id number] 022 Huang 11:59:44 11:59:44 1125 F Quirino 2022-06-02 2022-06-02 Outpatient 50u29u1m- [id number] d45m6m-8 00:00:00 00:00:00 Visit 756a-4a2e 56a-4a2e-b -y524-b47 549-w8974q 74h2704s6 9815d6 2022-04-29 2022-04-29 Outpatient SFA SFA [id number] 022 Huang 08:03:25 08:03:25 1020 F Quirino 2022-04-29 2022-04-29 Outpatient [id number]- [id number] 9or639-3 00:00:00 00:00:00 Visit 5wa7-6t00 bd7-4b85-9 -940e-c2d 40e-c2dfc3 iw6672205 072144 8676-10-14 2022-04-23 Outpatient tb6k2941- [id number] bf 1o9564-e 00:00:00 00:00:00 Visit mj97-4els h90-6xfk-8 -924a-d01 24a-d01f5f n5h3ec28z 4eb17f 2022-04-09 2022-04-09 Outpatient FREDRICK [facility] [id number] 022 Huang 08:02:18 08:02:18 0930 Kandice Win 2022-04-09 2022-04-09 Outpatient [id number]- [id number] c2 x50800-3 00:00:00 00:00:00 Visit 7r87-06y8 m05-67u0-4 -8750-031 750-0319bb 6nzac4097 kq1215 2022-03-29 2022-03-29 Outpatient [id number]- [id number] 528936-b 00:00:00 00:00:00 Visit y054-91m5 701-46a9-a -u8q2-u69 2o6-i75249 6449p51u1 3d26f8 2022-03-16 2022-03-16 Telephone [facility], 1.2.840.1 [id number] 2100 [id number] Methodi 00:00:00 00:00:[address] Dewi 3.430.2.7 Hospit a [place]oma .3.066714 l .8 2022-03-11 2022-03-11 Telephone [facility], 1.2.840.1 [id number] [id number] Methodi 00:00:00 00:00:[address] Dewi 3.430.2.7 Hospit a Arik .3.259764 l .8 2022-03-09 2022-03-09 Outpatient n5r18895- [id number] d6 y66044-f 00:00:00 00:00:00 Visit c99t-965x 56a-450d-9 -6i5x-64f r6r-09c213 284f14737 o50727 2022-01-20 2022-01-20 Outpatient 3do06moz- [id number] 0f y72fms-5 00:00:00 00:00:00 Visit 8baf-464d baf-464d-a -x53j-785 91e-04901n 43emqs98m aeb84a 2021-10-19 2021-10-19 Patient Doctor ARLENE 1.2.840.114 [id number] Univers 00:00:00 00:00:00 Secure Msjosef UnassignedBENITA 350.1.13.10 [facility] 4.2.7.2.686 Blake as [phone] [facility] [address] 2021-10-16 2021-10-16 [facility] [id number] Univers 16:39:00 22:23:00 BEATRIZ diaz of [facility] 2021-10-16 2021-10-16 [facility] 1.2.165.597 [id number] Univers 16:39:00 22:23:00 Beatriz BARBER 350.1.13.10 ity [facility] 4.2.7.2.[place] [phone] [facility] [address] 2021-09-22 2021-09-22 Emergency X [facility] ERT [id number] Univers 09:56:00 12:05:00 JN diaz of [facility] 2021-09-22 2021-09-22 Emergency [facility] 1.2.338.609 [id number] Univers 09:56:00 12:05:00 Jn BARBER 350.1.13.10 i ty [facility] 4.2.7.2.[place] [phone] [facility] [address] 2021-08-20 2021-08-20 Cam [facility] 1.2.840.114 [id number] Univers 00:00:00 00:00:[address] [facility] 350.1.13.10 it y of [place] 4.2.7.2.686 Blake as DANIELITO?BLEA [phone] N[place] bimal JEFFERY [address] [facility] 2021-07-31 2021-07-31 Outpatient ERICA Quiroga Bebeto [facility] Y000 [id number] [facility] 05:47:00 05:47:00 00 [facility] 2021-06-18 2021-06-18 Emergency X LAINE [facility] ERT [id number] Univers 04:31:00 08:25:00 FOZIA diaz [facility] 2021-06-18 2021-06-18 Emergency [facility] 1.2.354.973 [id number] Univers 04:31:00 08:25:00 Fozia BARBER 350.1.13.10 ity of [place] 4.2.7.2.686 [facility] [id number] [address] 2021-06-10 2021-06-10 Travel 1.2.840.1 1.2.608.225 2298 [id number] Methodi 00:00:00 00:00:[address] 3.430.2.7 0.2.7.3.698 Ho spita .3.309820 084.8 l .8 2021-06-10 2021-06-10 Outpatient [facility] [id number] [address] [place] 00:00:00 00:00:[address] 2021-06-08 2021-06-08 [facility], 1.2.840.1 [id number] 2100 [id number] Methodi 00:00:00 00:00:[address] Desd 3.430.2.7 Hospit a [place] .3.847082 l .8 2021-05-30 2021-05-30 Emergency [facility] [id number] Univers 15:49:00 19:42:00 MARY diaz [facility] 2021-05-30 2021-05-30 Emergency [facility] 1.2.533.146 [id number] Univers 15:49:00 19:42:00 Mary Mota SUNIL 350.1.13.10 i ty of [place] 4.2.7.2.686 [facility] [id number] [address] 2021-03-17 2021-03-17 Cam Grijalva [facility] 1.2.693.998 [id number] Univers 00:00:00 00:00:00 Doron Barber 350.1.13.10 i ty of [place] [phone] [place] dical [facility] 220 [facility] 2021-02-27 2021-02-27 Outpatient R DONNA [facility] [id number] Univers 15:00:00 15:00:00 DORON isaac [facility] 2020-12-23 2020-12-23 Outpatient R ROBBIE [facility] [id number] Univers 16:00:00 16:00:00 FABIO isaac [facility] 2020-12-10 2020-12-10 Outpatient R GONZALEZ, [facility] [id number] Univers 09:00:00 09:53:04 SENDIL [facility] 2020-12-10 2020-12-10 Patient Doctor [facility] 1.2.840.114 [id number] Univers 00:00:00 00:00:00 Secure Msg UnassignedSUNIL 350.1.13.10 ity [place] [id number] Nv dic[address] 2020-12-02 2020-12-04 Outpatient X LAINE, [facility] ANTONIO [id number] Univers 19:53:00 17:23:00 FOZIA [facility] 2020-11-07 2020-11-07 [facility] [id number] Univers 13:30:00 13:30:00 DORON [facility] 2020-06-02 2020-06-02 Telephone Sydney [facility] 1.2.840.114 [id number] 00:00:00 00:00:00 Lily Barber 350.1.13.10 [place] 4.2.7.2.686 Professio [id number] [address] 2020-05-29 2020-05-29 Outpatient R LUIS [facility] [id number] Univers 15:15:00 15:15:00 LESLEE diaz [facility] 2020-05-27 2020-05-27 Office [facility] 1.2.472.757 [id number] 10:59:24 11:54:17 Visit Lily Barber 350.1.13.10 [place] 4.2.7.2.686 Arik [id number] [address] 2020-05-27 2020-05-27 Outpatient Anupama DELEON, [facility] [id number] Univers 10:45:00 10:45:00 LILY isaac [facility] 2020-05-27 2020-05-27 Orders Doctor ARLENE 1.2.840.114 [id number] 00:00:00 00:00:00 Only Unassigned, BENTIA 350.1.13.10 [place] [facility] 4.2.7.2.686 [id number] 009 2020-01-10 2020-01-10 Outpatient Katie HCACL LABO [id number] [facility] 18:46:00 18:46:00 Tomiko 24 [facility] 2020-01-04 2020-01-04 Outpatient Katie HCATO RADI [id number] [facility] 13:00:00 13:00:00 Tomiko 18 [facility] 2019-12-12 2019-12-12 Outpatient Anupama SUN, [facility] [id number] [facility] 16:30:00 16:30:00 STANISLAW [facility] 2019-12-07 2019-12-07 Outpatient Anupama GRIJALVA, [facility] [id number] [facility] 09:00:00 09:00:00 DORON [facility] 2019-11-22 2019-11-22 [facility] [id number] [address] [place] 00:00:00 00:00:00 SILVINA [address] 2019-11-06 2019-11-06 Outpatient ANTTRENT, [facility] [id number] [address] [place] 00:00:00 00:00:00 SILVINA 6[address] 2019-11-01 2019-11-01 Outpatient ANTTRENT, [facility] [id number] [address] [place] 00:00:00 00:00:00 SILVINA 554 [place] 2019-10-30 2019-10-30 Outpatient ANGELIA, [facility] [id number] [address] [place] 00:00:00 00:00:00 ABHIJIT 714 Method i 2019-10-18 2019-10-18 [facility] [id number] [address] [place] [address] 00:00:00 00:00:00 SILVINA 629 [place] 2019-10-02 2019-10-02 Outpatient ANTOSH, [facility] [id number] [address] [place] 00:00:00 00:00:00 SILVINA 105 [place] 2019-10-01 2019-10-01 Outpatient ANTOSH, [facility] [id number] [address] [place] 00:00:00 00:00:00 SILVINA 439 [place] [place] 2019-09-19 2019-09-19 Outpatient ANTOSH, [facility] [id number] [address] [place] 00:00:00 00:00:00 SILVINA 116 [place] 2019-09-11 2019-09-11 Outpatient Anupama SUN [facility] [id number] [facility] 10:30:00 10:30:00 STANISLAW [facility] 2019-09-10 2019-09-10 Outpatient GALAN, [facility] [id number] [address] [place] 00:00:00 00:00:00 ABHIJIT 420 Method i 2019-09-10 2019-09-10 Outpatient ANTOSH, [facility] [id number] [address] [place] 00:00:00 00:00:00 SILVINA 373 [place] 2019-09-10 2019-09-10 Outpatient ANTOSH, [facility] [id number] [address] [place] 00:00:00 00:00:00 SILVINA 354 [place] 2019-08-23 2019-08-23 Outpatient Anupama DELEON [facility] [id number] [facility] 16:15:00 10:31:44 [facility] 2019-08-15 2019-08-15 Outpatient Anupama DELEON [facility] [id number] Univers 09:15:00 09:44:35 [facility] 2019-07-07 2019-07-07 Emergency X LAINE, [facility] ERT [id number] Univers 10:13:53 13:06:00 FOZIA [facility] 2010-08-05 2010-08-07 Inpatient OUTP JohnKit yu HCATO SURG [id number] [facility] 16:20:00 14:00:00 00 [facility] [place] [facility] 2010-08-05 2010-08-07 Inpatient OUTP JohnKit HCATO SURG S2292 [id number] [facility] 16:20:00 14:00:00 00 [place] [facility] Results Test Description Test Time Test Comments Results Result Comments Source POCT GLUCOSE (AUTOMATED) 2023-01-12 12:35:42 Test Item Value Reference Range Interpretation Comme nts POCT GLU (test code = 3797223632) 179 mg/dL 70-110 H Lab Interpretation (test code = 41344-3) Abnormal [facility] GLUCOSE (AUTOMATED)2023-01-12 02:35:59 Test Item Value Reference Range Interpretation Comments POCT GLU (test code = 6371795912) 267 mg/dL 70-110 H Lab Interpretation (test code = Abnormal 57279-8) [facility] GLUCOSE (AUTOMATED)2023-01-11 21:21:17 Test Item Value Reference Range Interpretation Comments POCT GLU (test code = 2746823814) 276 mg/dL 70-110 H Lab Interpretation (test code = Abnormal 91640-1) [facility] GLUCOSE (AUTOMATED)2023-01-11 16:26:50 Test Item Value Reference Range Interpretation Comments POCT GLU (test code = 7690716967) 114 mg/dL 70-110 H Lab Interpretation (test code = Abnormal 44228-1) [facility] GLUCOSE (AUTOMATED)2023-01-11 12:44:00 Test Item Value Reference Range Interpretation Comments POCT GLU (test code = 8046748026) 142 mg/dL 70-110 H Lab Interpretation (test code = Abnormal 62600-4) [facility] GLUCOSE (AUTOMATED)2023-01-11 02:08:20 Test Item Value Reference Range Interpretation Comments POCT GLU (test code = 5776282365) 97 mg/dL 70-110 Lab Interpretation (test code = Normal 35770-9) [facility] 14:27:19 Test Item Value Reference Range Interpretation Comments TRIG (test code = 0614214790) 427 mg/dL 30-170 H Lab Interpretation (test code = Abnormal 61971-5) [facility] MET[facility]OLIC PANEL (28353)2023-01-10 14:22:41 Test Item Value Reference Range Interpretation Comments NA (test code = 138 mmol/L 135-145 1298931625) K (test code = 4.6 mmol/L 3.5-5.0 4805816566) CL (test code = 102 mmol/L 98-108 7170714351) CO2 TOTAL (test code = 21 mmol/L 23-31 L 0585206658) AGAP (test code = 15 2-16 9211106402) BUN (test code = 24 mg/dL 7-23 H 7160361707) GLUCOSE (test code = 158 mg/dL 70-110 H 2669844590) CREATININE (test code = 0.82 mg/dL 0.50-1.04 0298167350) TOTAL BILI (test code = 0.4 mg/dL 0.1-1.0 7656425280) CALCIUM (test code = 9.4 mg/dL 8.6-10.6 5555143213) T PROTEIN (test code = 7.9 g/dL 6.3-8.2 2845458458) ALBUMIN (test code = 4.7 g/dL 3.5-5.0 4427886645) ALK PHOS (test code = 42 U/L 34-122 9815369322) ALTv (test code = 32 U/L 5-35 1742-6) AST(SGOT) (test code = 27 U/L 13-40 3382683086) eGFR (test code = 75.7 mL/min/1.73m2 8586655812) CALVIN (test code = CALVIN) Association of [...] tests). Lab Interpretation Abnormal (test code = 40562-1) [facility] 14:22:41 Test Item Value Reference Range Interpretation Comments LIPASE (test code = 7697383223) 682 U/L 0-220 H Lab Interpretation (test code = Abnormal 29287-9) [facility] WITH [id number] 14:15:28 Test Item Value Reference Range Interpretation Comments WBC (test code = 7.27 See_Comment [Automated 4292-2) message] The sy stem which generated this result transmitted reference range : 4.30 - 11.10 10*3/?L. The reference range was not used to interpret this result as normal/abnormal . RBC (test code = 4.56 See_Comment [Automated 798-8) message] The sy stem which generated this [...] RDW-SD (test code = 45.0 fL 39.0-49.9 42082-3) RDW-CV (test code = 14.9 % 12.0-15.5 788-0) PLT (test code = 260 See_Comment [Automated 303-3) message] The sy stem which generated this result transmitted reference range : 166 - 358 10*3/ ?L. The reference r doretha was not used to interpret this result as normal/abnormal . MPV (test code = 9.3 fL 9.5-12.9 L 38852-4) NRBC/100 WBC (test 0.0 See_Comment [Automat ed code = 3698703371) message] The system which generated this result transmitted reference range : 0.0 - 10.0 /100 WBCs. The refer ence range was not u sed to interpret th is result as normal/abnormal . NRBC x10^3 (test code See_Comment [Auto mated = 1672808708) message] The s ystem which generated this result transmitted reference range : 10*3/?L. The reference range was not used to interpret this result as normal/abnormal . GRAN MAT (NEUT) % 51.9 % (test code = 770-8) IMM GRAN % (test code 0.60 % = 8751211412) LYMPH % (test code = 34.7 % 736-9) MONO % (test code = 9.2 % 5905-5) EOS % (test code = 2.5 % 713-8) BASO % (test code = 1.1 % 706-2) GRAN MAT x10^3(ANC) 3.78 10*3/uL 1.88-7.09 (test code = 3933922362) IMM GRAN x10^3 (test 0.04 10*3/uL 0.00-0.06 code = 5694073328) LYMPH x10^3 (test code 2.52 10*3/uL 1.32-3.29 = 731-0) MONO x10^3 (test code 0.67 10*3/uL 0.33-0.92 = 742-7) EOS x10^3 (test code = 0.18 10*3/uL 0.03-0.39 711-2) BASO x10^3 (test code 0.08 10*3/uL 0.01-0.07 H = 704-7) Lab Interpretation Abnormal (test code = 17043-7) [facility] [id number] 13:37:00 Test Item Value Reference Range Interpretation Comments POCT PREG (test code = 1605) Negative On board controls acceptable with C Yes Line (test code = 3574) Lab Interpretation (test code = Normal 66783-1) [facility]/BLOOD [id number] 00:00:00 Test Item Value Reference Range Interpretation Comments BLOOD SUGAR (test code = 132099) 276 mg/dL 65-99 A Lab Interpretation (test code = Abnormal 23846-9) Andreea Corona - ExternalLIPID PANEL (40255)(TOTAL CHOLESTEROL, TRIGLYCERIDES, HDL)2022-11-03 14:32:57 Test Item Value Reference Range Interpretation Comments CHOL (test code = 236 mg/dL 120-200 H 6828796947) HDL (test code = 32 mg/dL >=50 L 8425967670) HDLC RATIO (test code = 7.4 <=4.5 H 9705399128) TRIG (test code = 667 mg/dL 30-170 H 0057613213) LDL CHOL (test code = Unable to calculate 13489-9) LDL due to elev ated triglyceride le jossy greater than 40 0 mg/dL. VLDL (test code = 133 mg/dL 5-60 H 7496583262) Lab Interpretation Abnormal (test code = 05879-4) [facility] MET[facility] (NA, K, CL, CO2, GLUCOSE, BUN, CREATININE, CA)2022-11-03 14:18:35 Test Item Value Reference Range Interpretation Comments NA (test code = 139 mmol/L 135-145 3110281468) K (test code = 4.4 mmol/L 3.5-5.0 7061580085) CL (test code = 105 mmol/L 98-108 3748468067) CO2 TOTAL (test code = 23 mmol/L 23-31 7516599317) AGAP (test code = 11 2-16 2861808169) BUN (test code = 12 mg/dL 7-23 9057179995) GLUCOSE (test code = 279 mg/dL 70-110 H 7059465049) CREATININE (test code = 0.59 mg/dL 0.50-1.04 9123891358) CALCIUM (test code = 9.8 mg/dL 8.6-10.6 1707055396) eGFR (test code = 110.7 mL/min/1.73m2 5713803560) CALVIN (test code = CALVIN) Association of [...] tests). Lab Interpretation Abnormal (test code = 50253-2) [facility]AT[facility] FUN[facility] PANEL (70262) (ALB,T.PRO,BILI T,BU/BC,ALT,AST,ALK PHOS)2022-11-03 14:18:35 Test Item Value Reference Range Interpretation Comments TOTAL BILI (test code = 7536749166) 0.8 mg/dL 0.1-1.1 BILI UNCON (test code = 0096356799) 0.6 mg/dL 0.1-1.1 BILI CONJ (test code = 2861887026) 0.0 mg/dL 0.0-0.3 T PROTEIN (test code = 9608381597) 8.5 g/dL 6.3-8.2 H ALBUMIN (test code = 3124078579) 4.9 g/dL 3.5-5.0 ALK PHOS (test code = 7049077106) 48 U/L 34-122 ALTv (test code = 1742-6) 60 U/L 5-35 H AST(SGOT) (test code = 7473314786) 56 U/L 13-40 H Lab Interpretation (test code = Abnormal 86627-0) [facility]15 Test Item Value Reference Range Interpretation Comments LIPASE (test code = 7348593169) 240 U/L 0-220 H Lab Interpretation (test code = Abnormal 51787-4) [facility] [id number] 14:01:29 Test Item Value Reference Range Interpretation Comments WBC (test code = 6.73 See_Comment [Automated 3357-2) message] The sy stem which generated this result transmitted reference range : 4.30 - 11.10 10*3/?L. The reference range was not used to interpret this result as normal/abnormal . RBC (test code = 4.90 See_Comment [Automated 386-8) message] The sy stem which generated this [...] RDW-SD (test code = 39.7 fL 39.0-49.9 10254-6) RDW-CV (test code = 13.0 % 12.0-15.5 788-0) PLT (test code = 252 See_Comment [Automated 277-3) message] The sy stem which generated this result transmitted reference range : 166 - 358 10*3/ ?L. The reference r doretha was not used to interpret this result as normal/abnormal . MPV (test code = 9.4 fL 9.5-12.9 L 65897-7) NRBC/100 WBC (test 0.0 See_Comment [Automat ed code = 8262357513) message] The system which generated this result transmitted reference range : 0.0 - 10.0 /100 WBCs. The refer ence range was not u sed to interpret th is result as normal/abnormal . NRBC x10^3 (test code See_Comment [Auto mated = 3427298989) message] The s ystem which generated this result transmitted reference range : 10*3/?L. The reference range was not used to interpret this result as normal/abnormal . GRAN MAT (NEUT) % 54.5 % (test code = 770-8) IMM GRAN % (test code 0.70 % = 4550690897) LYMPH % (test code = 34.3 % 736-9) MONO % (test code = 7.4 % 5905-5) EOS % (test code = 2.1 % 713-8) BASO % (test code = 1.0 % 706-2) GRAN MAT x10^3(ANC) 3.66 10*3/uL 1.88-7.09 (test code = 9435028391) IMM GRAN x10^3 (test 0.05 10*3/uL 0.00-0.06 code = 9274972263) LYMPH x10^3 (test code 2.31 10*3/uL 1.32-3.29 = 731-0) MONO x10^3 (test code 0.50 10*3/uL 0.33-0.92 = 742-7) EOS x10^3 (test code = 0.14 10*3/uL 0.03-0.39 711-2) BASO x10^3 (test code 0.07 10*3/uL 0.01-0.07 = 704-7) Lab Interpretation Abnormal (test code = 03117-1) [facility] STRIP/BLOOD [id number] 00:00:00 Test Item Value Reference Range Interpretation Comments BLOOD SUGAR (test code = 217376) 260 mg/dL 65-99 A Lab Interpretation (test code = Abnormal 09577-3) Andreea Yeboah GLUCOSE (AUTOMATED)2022-08-30 14:54:37 Test Item Value Reference Range Interpretation Comments POCT GLU (test code = [id number]) 123 mg/dL 70-110 H Lab Interpretation (test code = Abnormal 85727-2) [facility] GLUCOSE (AUTOMATED)2022-08-30 13:07:24 Test Item Value Reference Range Interpretation Comments POCT GLU (test code = 2252205437) 130 mg/dL 70-110 H Lab Interpretation (test code = Abnormal 53568-0) [facility] GLUCOSE (AUTOMATED)2022-08-30 12:05:08 Test Item Value Reference Range Interpretation Comments POCT GLU (test code = 0061866171) 136 mg/dL 70-110 H Lab Interpretation (test code = Abnormal 06277-5) [facility] GLUCOSE (AUTOMATED)2022-08-30 11:08:07 Test Item Value Reference Range Interpretation Comments POCT GLU (test code = 3742071493) 115 mg/dL 70-110 H Lab Interpretation (test code = Abnormal 70697-6) [facility] GLUCOSE (AUTOMATED)2022-08-30 10:21:27 Test Item Value Reference Range Interpretation Comments POCT GLU (test code = 1191102977) 111 mg/dL 70-110 H Lab Interpretation (test code = Abnormal 97815-3) [facility] GLUCOSE (AUTOMATED)2022-08-30 09:12:24 Test Item Value Reference Range Interpretation Comments POCT GLU (test code = 1226910870) 121 mg/dL 70-110 H Lab Interpretation (test code = Abnormal 13255-1) [facility] GLUCOSE (AUTOMATED)2022-08-30 08:11:01 Test Item Value Reference Range Interpretation Comments POCT GLU (test code = 1200952372) 137 mg/dL 70-110 H Lab Interpretation (test code = Abnormal 96133-8) [facility] GLUCOSE (AUTOMATED)2022-08-30 07:47:30 Test Item Value Reference Range Interpretation Comments POCT GLU (test code = 1955884196) 134 mg/dL 70-110 H Lab Interpretation (test code = Abnormal 08862-9) [facility] GLUCOSE (AUTOMATED)2022-08-30 06:32:02 Test Item Value Reference Range Interpretation Comments POCT GLU (test code = 2030823404) 128 mg/dL 70-110 H Lab Interpretation (test code = Abnormal 16169-0) [facility] GLUCOSE (AUTOMATED)2022-08-30 05:05:59 Test Item Value Reference Range Interpretation Comments POCT GLU (test code = 3361179021) 157 mg/dL 70-110 H Lab Interpretation (test code = Abnormal 70101-5) [facility] GLUCOSE (AUTOMATED)2022-08-30 04:14:51 Test Item Value Reference Range Interpretation Comments POCT GLU (test code = 4619721607) 181 mg/dL 70-110 H Lab Interpretation (test code = Abnormal 35277-0) [facility] GLUCOSE (AUTOMATED)2022-08-30 03:07:48 Test Item Value Reference Range Interpretation Comments POCT GLU (test code = 8818847709) 150 mg/dL 70-110 H Lab Interpretation (test code = Abnormal 48032-8) [facility] GLUCOSE (AUTOMATED)2022-08-30 02:26:22 Test Item Value Reference Range Interpretation Comments POCT GLU (test code = 3374558690) 118 mg/dL 70-110 H Lab Interpretation (test code = Abnormal 33429-4) [facility] GLUCOSE (AUTOMATED)2022-08-30 01:05:37 Test Item Value Reference Range Interpretation Comments POCT GLU (test code = 1300289720) 150 mg/dL 70-110 H Lab Interpretation (test code = Abnormal 79843-9) [facility] GLUCOSE (AUTOMATED)2022-08-30 00:05:56 Test Item Value Reference Range Interpretation Comments POCT GLU (test code = 7582188945) 206 mg/dL 70-110 H Lab Interpretation (test code = Abnormal 87532-5) [facility] GLUCOSE (AUTOMATED)2022-08-29 23:02:06 Test Item Value Reference Range Interpretation Comments POCT GLU (test code = 2186511002) 172 mg/dL 70-110 H Lab Interpretation (test code = Abnormal 01917-6) [facility] GLUCOSE (AUTOMATED)2022-08-29 22:07:12 Test Item Value Reference Range Interpretation Comments POCT GLU (test code = 1701001038) 110 mg/dL 70-110 Lab Interpretation (test code = Normal 08488-3) [facility] 21:14:06 Test Item Value Reference Range Interpretation Comments POCT GLU (test code = 2347933985) 118 mg/dL 70-110 H Lab Interpretation (test code = Abnormal 93286-1) [facility]29 20:09:27 Test Item Value Reference Range Interpretation Comments POCT GLU (test code = 8922647450) 104 mg/dL 70-110 Lab Interpretation (test code = Normal 20516-8) [facility] GLUCOSE (AUTOMATED)2022-08-29 19:11:06 Test Item Value Reference Range Interpretation Comments POCT GLU (test code = 8591749328) 101 mg/dL 70-110 Lab Interpretation (test code = Normal 58342-1) [facility] GLUCOSE (AUTOMATED)2022-08-29 18:15:25 Test Item Value Reference Range Interpretation Comments POCT GLU (test code = 8690531053) 125 mg/dL 70-110 H Lab Interpretation (test code = Abnormal 39343-4) [facility] GLUCOSE (AUTOMATED)2022-08-29 17:11:12 Test Item Value Reference Range Interpretation Comments POCT GLU (test code = 6686262653) 116 mg/dL 70-110 H Lab Interpretation (test code = Abnormal 32279-8) [facility] GLUCOSE (AUTOMATED)2022-08-29 16:16:36 Test Item Value Reference Range Interpretation Comments POCT GLU (test code = 2986505596) 139 mg/dL 70-110 H Lab Interpretation (test code = Abnormal 65947-0) [facility] GLUCOSE (AUTOMATED)2022-08-29 15:08:34 Test Item Value Reference Range Interpretation Comments POCT GLU (test code = 4812069208) 159 mg/dL 70-110 H Lab Interpretation (test code = Abnormal 11732-2) [facility] GLUCOSE (AUTOMATED)2022-08-29 14:18:05 Test Item Value Reference Range Interpretation Comments POCT GLU (test code = 8934236718) 147 mg/dL 70-110 H Lab Interpretation (test code = Abnormal 87682-5) [facility] GLUCOSE (AUTOMATED)2022-08-29 13:22:04 Test Item Value Reference Range Interpretation Comments POCT GLU (test code = 6724730750) 151 mg/dL 70-110 H Lab Interpretation (test code = Abnormal 02087-7) [facility] GLUCOSE (AUTOMATED)2022-08-29 12:11:27 Test Item Value Reference Range Interpretation Comments POCT GLU (test code = 3191694644) 163 mg/dL 70-110 H Lab Interpretation (test code = Abnormal 31960-8) [facility] GLUCOSE (AUTOMATED)2022-08-29 10:58:04 Test Item Value Reference Range Interpretation Comments POCT GLU (test code = 7390895398) 162 mg/dL 70-110 H Lab Interpretation (test code = Abnormal 52540-9) [facility] GLUCOSE (AUTOMATED)2022-08-29 10:03:25 Test Item Value Reference Range Interpretation Comments POCT GLU (test code = 7040160173) 184 mg/dL 70-110 H Lab Interpretation (test code = Abnormal 10685-8) [facility] GLUCOSE (AUTOMATED)2022-08-29 09:10:58 Test Item Value Reference Range Interpretation Comments POCT GLU (test code = 7585755633) 176 mg/dL 70-110 H Lab Interpretation (test code = Abnormal 65091-4) [facility] GLUCOSE (AUTOMATED)2022-08-29 08:04:18 Test Item Value Reference Range Interpretation Comments POCT GLU (test code = 5035289789) 158 mg/dL 70-110 H Lab Interpretation (test code = Abnormal 72661-7) [facility] GLUCOSE (AUTOMATED)2022-08-29 07:09:28 Test Item Value Reference Range Interpretation Comments POCT GLU (test code = 7130857515) 137 mg/dL 70-110 H Lab Interpretation (test code = Abnormal 44851-9) [facility] GLUCOSE (AUTOMATED)2022-08-29 06:07:41 Test Item Value Reference Range Interpretation Comments POCT GLU (test code = 8039414515) 136 mg/dL 70-110 H Lab Interpretation (test code = Abnormal 87050-3) [facility] GLUCOSE (AUTOMATED)2022-08-29 05:12:21 Test Item Value Reference Range Interpretation Comments POCT GLU (test code = 3387710744) 151 mg/dL 70-110 H Lab Interpretation (test code = Abnormal 31991-4) [facility] GLUCOSE (AUTOMATED)2022-08-29 04:11:30 Test Item Value Reference Range Interpretation Comments POCT GLU (test code = 4755030066) 166 mg/dL 70-110 H Lab Interpretation (test code = Abnormal 33384-2) [facility] GLUCOSE (AUTOMATED)2022-08-29 03:21:25 Test Item Value Reference Range Interpretation Comments POCT GLU (test code = 6543563053) 185 mg/dL 70-110 H Lab Interpretation (test code = Abnormal 24292-3) [facility] GLUCOSE (AUTOMATED)2022-08-29 02:13:24 Test Item Value Reference Range Interpretation Comments POCT GLU (test code = 1855242815) 139 mg/dL 70-110 H Lab Interpretation (test code = Abnormal 47977-6) [facility] GLUCOSE (AUTOMATED)2022-08-29 01:03:43 Test Item Value Reference Range Interpretation Comments POCT GLU (test code = 4620067530) 144 mg/dL 70-110 H Lab Interpretation (test code = Abnormal 55755-3) [facility] GLUCOSE (AUTOMATED)2022-08-29 00:27:52 Test Item Value Reference Range Interpretation Comments POCT GLU (test code = 1753778461) 193 mg/dL 70-110 H Lab Interpretation (test code = Abnormal 42844-5) [facility] GLUCOSE (AUTOMATED)2022-08-28 23:18:19 Test Item Value Reference Range Interpretation Comments POCT GLU (test code = 6250972785) 162 mg/dL 70-110 H Lab Interpretation (test code = Abnormal 60029-8) [facility] GLUCOSE (AUTOMATED)2022-08-28 22:25:29 Test Item Value Reference Range Interpretation Comments POCT GLU (test code = 0832628168) 163 mg/dL 70-110 H Lab Interpretation (test code = Abnormal 59536-8) [facility] GLUCOSE (AUTOMATED)2022-08-28 21:06:41 Test Item Value Reference Range Interpretation Comments POCT GLU (test code = 6107615103) 179 mg/dL 70-110 H Lab Interpretation (test code = Abnormal 47197-1) [facility] 20:08:24 Test Item Value Reference Range Interpretation Comments POCT GLU (test code = 7547186660) 159 mg/dL 70-110 H Lab Interpretation (test code = Abnormal 27173-9) [facility]28 19:08:09 Test Item Value Reference Range Interpretation Comments POCT GLU (test code = 0012519285) 129 mg/dL 70-110 H Lab Interpretation (test code = Abnormal 81229-4) [facility]28 18:16:18 Test Item Value Reference Range Interpretation Comments POCT GLU (test code = 0041665959) 106 mg/dL 70-110 Lab Interpretation (test code = Normal 22155-6) [facility] GLUCOSE (AUTOMATED)2022-08-28 17:06:55 Test Item Value Reference Range Interpretation Comments POCT GLU (test code = 0116813714) 136 mg/dL 70-110 H Lab Interpretation (test code = Abnormal 93296-5) [facility]28 16:05:13 Test Item Value Reference Range Interpretation Comments POCT GLU (test code = 5040836075) 141 mg/dL 70-110 H Lab Interpretation (test code = Abnormal 48496-2) [facility] GLUCOSE (AUTOMATED)2022-08-28 15:04:57 Test Item Value Reference Range Interpretation Comments POCT GLU (test code = 6216490770) 168 mg/dL 70-110 H Lab Interpretation (test code = Abnormal 90059-4) [facility] 14:10:31 Test Item Value Reference Range Interpretation Comments POCT GLU (test code = 3804649104) 163 mg/dL 70-110 H Lab Interpretation (test code = Abnormal 01757-7) [facility]28 13:07:27 Test Item Value Reference Range Interpretation Comments POCT GLU (test code = 1382494151) 133 mg/dL 70-110 H Lab Interpretation (test code = Abnormal 58250-0) [facility] GLUCOSE (AUTOMATED)2022-08-28 12:32:10 Test Item Value Reference Range Interpretation Comments POCT GLU (test code = 3093693967) 150 mg/dL 70-110 H Lab Interpretation (test code = Abnormal 05231-3) [facility] 12:14:56 Test Item Value Reference Range Interpretation Comments TRIG (test code = 6512373943) 1527 mg/dL 30-170 H Lab Interpretation (test code = Abnormal 54619-3) [facility] (NA, K, CL, CO2, GLUCOSE, BUN, CREATININE, CA)2022-08-28 12:02:28 Test Item Value Reference Range Interpretation Comments NA (test code = 137 mmol/L 135-145 2246222141) K (test code = 4.0 mmol/L 3.5-5.0 9591919498) CL (test code = 112 mmol/L 98-108 H 6809136345) CO2 TOTAL (test code = 19 mmol/L 23-31 L 5326760465) AGAP (test code = 6 2-16 2478812324) BUN (test code = 9 mg/dL 7-23 1754039792) GLUCOSE (test code = 157 mg/dL 70-110 H 8879418328) CREATININE (test code = 0.53 mg/dL 0.50-1.04 1303468517) CALCIUM (test code = 7.2 mg/dL 8.6-10.6 L 2162661581) eGFR (test code = 125.3 mL/min/1.73m2 9594902454) CALVIN (test code = CALVIN) Association of [...] tests). Lab Interpretation Abnormal (test code = 62655-6) [facility] GLUCOSE (AUTOMATED)2022-08-28 11:34:27 Test Item Value Reference Range Interpretation Comments POCT GLU (test code = 7431203540) 139 mg/dL 70-110 H Lab Interpretation (test code = Abnormal 06762-5) [facility] GLUCOSE (AUTOMATED)2022-08-28 10:08:58 Test Item Value Reference Range Interpretation Comments POCT GLU (test code = 8529846552) 159 mg/dL 70-110 H Lab Interpretation (test code = Abnormal 84334-4) [facility] GLUCOSE (AUTOMATED)2022-08-28 09:03:44 Test Item Value Reference Range Interpretation Comments POCT GLU (test code = 8486373085) 138 mg/dL 70-110 H Lab Interpretation (test code = Abnormal 36345-3) [facility] GLUCOSE (AUTOMATED)2022-08-28 08:09:23 Test Item Value Reference Range Interpretation Comments POCT GLU (test code = 9184616024) 134 mg/dL 70-110 H Lab Interpretation (test code = Abnormal 96405-3) [facility] GLUCOSE (AUTOMATED)2022-08-28 06:02:02 Test Item Value Reference Range Interpretation Comments POCT GLU (test code = 9641315364) 159 mg/dL 70-110 H Lab Interpretation (test code = Abnormal 57959-1) [facility] GLUCOSE (AUTOMATED)2022-08-28 05:07:18 Test Item Value Reference Range Interpretation Comments POCT GLU (test code = 8637347927) 132 mg/dL 70-110 H Lab Interpretation (test code = Abnormal 51805-8) [facility] GLUCOSE (AUTOMATED)2022-08-28 04:03:46 Test Item Value Reference Range Interpretation Comments POCT GLU (test code = 0353040627) 132 mg/dL 70-110 H Lab Interpretation (test code = Abnormal 79746-9) [facility] GLUCOSE (AUTOMATED)2022-08-28 03:06:02 Test Item Value Reference Range Interpretation Comments POCT GLU (test code = 4236081770) 161 mg/dL 70-110 H Lab Interpretation (test code = Abnormal 10803-1) [facility] GLUCOSE (AUTOMATED)2022-08-28 02:11:59 Test Item Value Reference Range Interpretation Comments POCT GLU (test code = 9257735112) 152 mg/dL 70-110 H Lab Interpretation (test code = Abnormal 09206-1) [facility] GLUCOSE (AUTOMATED)2022-08-28 01:13:55 Test Item Value Reference Range Interpretation Comments POCT GLU (test code = 4137293608) 154 mg/dL 70-110 H Lab Interpretation (test code = Abnormal 35051-0) [facility] GLUCOSE (AUTOMATED)2022-08-28 00:04:53 Test Item Value Reference Range Interpretation Comments POCT GLU (test code = 8118185959) 171 mg/dL 70-110 H Lab Interpretation (test code = Abnormal 50498-1) [facility] GLUCOSE (AUTOMATED)2022-08-27 23:36:39 Test Item Value Reference Range Interpretation Comments POCT GLU (test code = 0483245962) 192 mg/dL 70-110 H Lab Interpretation (test code = Abnormal 11073-5) [facility] GLUCOSE (AUTOMATED)2022-08-27 22:12:56 Test Item Value Reference Range Interpretation Comments POCT GLU (test code = 4395977280) 209 mg/dL 70-110 H Lab Interpretation (test code = Abnormal 19382-1) [facility] GLUCOSE (AUTOMATED)2022-08-27 21:04:44 Test Item Value Reference Range Interpretation Comments POCT GLU (test code = 0589494742) 173 mg/dL 70-110 H Lab Interpretation (test code = Abnormal 57282-8) [facility]27 20:46:25 Test Item Value Reference Range Interpretation Comments POCT GLU (test code = 8530032567) 104 mg/dL 70-110 Lab Interpretation (test code = Normal 79155-4) [facility]2022-08-27 19:02:38 Test Item Value Reference Range Interpretation Comments POCT GLU (test code = 0583208348) 156 mg/dL 70-110 H Lab Interpretation (test code = Abnormal 28121-9) [facility]22-08-27 18:04:27 Test Item Value Reference Range Interpretation Comments POCT GLU (test code = 7935350609) 146 mg/dL 70-110 H Lab Interpretation (test code = Abnormal 86179-9) [facility] GLUCOSE (AUTOMATED)2022-08-27 17:01:16 Test Item Value Reference Range Interpretation Comments POCT GLU (test code = 4500973560) 152 mg/dL 70-110 H Lab Interpretation (test code = Abnormal 73947-7) [facility]-27 16:14:54 Test Item Value Reference Range Interpretation Comments POCT GLU (test code = 8351029014) 173 mg/dL 70-110 H Lab Interpretation (test code = Abnormal 70451-2) [facility] GLUCOSE (AUTOMATED)2022-08-27 15:15:33 Test Item Value Reference Range Interpretation Comments POCT GLU (test code = 7345787259) 128 mg/dL 70-110 H Lab Interpretation (test code = Abnormal 81777-9) [facility] 14:21:55 Test Item Value Reference Range Interpretation Comments POCT GLU (test code = 1788141450) 128 mg/dL 70-110 H Lab Interpretation (test code = Abnormal 76234-1) [facility]27 13:24:52 Test Item Value Reference Range Interpretation Comments POCT GLU (test code = 1176107076) 140 mg/dL 70-110 H Lab Interpretation (test code = Abnormal 98356-6) [facility] GLUCOSE (AUTOMATED)2022-08-27 12:09:47 Test Item Value Reference Range Interpretation Comments POCT GLU (test code = 3660931711) 167 mg/dL 70-110 H Lab Interpretation (test code = Abnormal 86130-1) [facility] GLUCOSE (AUTOMATED)2022-08-27 11:09:03 Test Item Value Reference Range Interpretation Comments POCT GLU (test code = 9835431701) 148 mg/dL 70-110 H Lab Interpretation (test code = Abnormal 47771-3) [facility] GLUCOSE (AUTOMATED)2022-08-27 10:16:49 Test Item Value Reference Range Interpretation Comments POCT GLU (test code = 3051805455) 129 mg/dL 70-110 H Lab Interpretation (test code = Abnormal 61486-8) [facility] GLUCOSE (AUTOMATED)2022-08-27 09:21:11 Test Item Value Reference Range Interpretation Comments POCT GLU (test code = 9289639037) 145 mg/dL 70-110 H Lab Interpretation (test code = Abnormal 40771-8) [facility] GLUCOSE (AUTOMATED)2022-08-27 07:01:10 Test Item Value Reference Range Interpretation Comments POCT GLU (test code = 1190298657) 126 mg/dL 70-110 H Lab Interpretation (test code = Abnormal 91581-1) [facility] GLUCOSE (AUTOMATED)2022-08-27 06:14:53 Test Item Value Reference Range Interpretation Comments POCT GLU (test code = 9540012166) 154 mg/dL 70-110 H Lab Interpretation (test code = Abnormal 23712-9) [facility] 05:41:57 Test Item Value Reference Range Interpretation Comments LIPASE (test code = 3043846585) 197 U/L 0-220 Lab Interpretation (test code = Normal 95299-7) [facility] GLUCOSE (AUTOMATED)2022-08-27 05:13:21 Test Item Value Reference Range Interpretation Comments POCT GLU (test code = 9724037293) 163 mg/dL 70-110 H Lab Interpretation (test code = Abnormal 21704-8) [facility] LIPOPROTEIN, [id number] 04:16:58 Test Item Value Reference Range Interpretation Comments dLDL Chol (test code = 22968-9) 63 mg/dL <=130 Lab Interpretation (test code = Normal 24400-5) [facility]MOL[facility], SERUM OR [id number] 04:12:04 Test Item Value Reference Range Interpretation Comments OSMOLALITY (test code = 319 See_Comment H [Au tomated message] 7692-2) The system [employer] generated this result transmitted ref erence range: 278 - 30 5 mOsm/kg. The reference range was not used to int erpret this result as normal/abnormal . Lab Interpretation (test Abnormal code = 75542-5) [facility]2022-08-27 03:17:19 Test Item Value Reference Range Interpretation Comments POCT GLU (test code = 9662619360) 244 mg/dL 70-110 H Lab Interpretation (test code = Abnormal 68801-4) [facility] (NA, K, CL, CO2, GLUCOSE, BUN, CREATININE, CA)2022-08-27 02:55:11 Test Item Value Reference Range Interpretation Comments NA (test code = 134 mmol/L 135-145 L 6062826298) K (test code = 4.3 mmol/L 3.5-5.0 0455456102) CL (test code = 103 mmol/L 98-108 0874033972) CO2 TOTAL (test code = 19 mmol/L 23-31 L 8577451038) AGAP (test code = 12 2-16 7995146267) BUN (test code = 25 mg/dL 7-23 H 8832344023) GLUCOSE (test code = 277 mg/dL 70-110 H 4922591381) CREATININE (test code = 0.77 mg/dL 0.50-1.04 3744935117) CALCIUM (test code = 8.2 mg/dL 8.6-10.6 L 8560001832) eGFR (test code = 81.4 mL/min/1.73m2 4892354329) CALVIN (test code = CALVIN) Association of [...] tests). Lab Interpretation Abnormal (test code = 54370-6) [facility] GLUCOSE (AUTOMATED)2022-08-27 02:03:06 Test Item Value Reference Range Interpretation Comments POCT GLU (test code = 6936670274) 322 mg/dL 70-110 H Lab Interpretation (test code = Abnormal 08690-0) [facility] GLUCOSE (AUTOMATED)2022-08-27 01:25:59 Test Item Value Reference Range Interpretation Comments POCT GLU (test code = 9922020572) 324 mg/dL 70-110 H Lab Interpretation (test code = Abnormal 24847-9) [facility] GLUCOSE (AUTOMATED)2022-08-27 00:32:23 Test Item Value Reference Range Interpretation Comments POCT GLU (test code = 4084902334) 372 mg/dL 70-110 H Lab Interpretation (test code = Abnormal 53306-7) [facility] GLUCOSE (AUTOMATED)2022-08-27 00:00:02 Test Item Value Reference Range Interpretation Comments POCT GLU (test code = 7581583782) 382 mg/dL 70-110 H Lab Interpretation (test code = Abnormal 22717-6) [facility] GLUCOSE (AUTOMATED)2022-08-26 23:10:50 Test Item Value Reference Range Interpretation Comments POCT GLU (test code = 4941378128) 409 mg/dL 70-110 H Lab Interpretation (test code = Abnormal 82520-9) [facility] (13047)(TOTAL CHOLESTEROL, TRIGLYCERIDES, HDL)2022-08-26 22:34:41 Test Item Value Reference Range Interpretation Comments CHOL (test code = 381 mg/dL 120-200 H 8115408500) HDL (test code = 25 mg/dL >=50 L 0751117997) HDLC RATIO (test code = 15.2 <=4.5 H 2115239736) TRIG (test code = 30-170 H 7310140198) LDL CHOL (test code = Unable to calculate 70232-8) LDL due to elev ated triglyceride le jossy greater than 40 0 mg/dL. VLDL (test code = Unable to calculate 5260756874) VLDL due to [place] vated triglyceride le jossy greater than 71 0 mg/dL. Lab Interpretation Abnormal (test code = 75324-1) [facility] GLUCOSE (AUTOMATED)2022-08-26 22:11:52 Test Item Value Reference Range Interpretation Comments POCT GLU (test code = 9238721714) 375 mg/dL 70-110 H Lab Interpretation (test code = Abnormal 48856-3) [facility]OL[facility] (99861)2022-08-26 22:06:45 Test Item Value Reference Range Interpretation Comments NA (test code = 131 mmol/L 135-145 L 9199997897) K (test code = 5.4 mmol/L 3.5-5.0 H 8255238535) CL (test code = 95 mmol/L 98-108 L 2656843055) CO2 TOTAL (test code = 9 mmol/L 23-31 L 1135469701) AGAP (test code = 27 2-16 H 3268330871) BUN (test code = 29 mg/dL 7-23 H 6355039237) GLUCOSE (test code = 444 mg/dL 70-110 H 0484476076) CREATININE (test code = 1.01 mg/dL 0.50-1.04 5816471223) TOTAL BILI (test code = 0.9 mg/dL 0.1-1.2 3326875625) CALCIUM (test code = 9.2 mg/dL 8.6-10.6 6450022141) T PROTEIN (test code = 9.4 g/dL 6.3-8.2 H 1575893910) ALBUMIN (test code = 4.8 g/dL 3.5-5.0 5066352472) ALK PHOS (test code = 79 U/L 34-122 9099494978) ALTv (test code = 43 U/L 5-35 H 1742-6) AST(SGOT) (test code = 42 U/L 13-40 H 0163882534) eGFR (test code = 59.5 mL/min/1.73m2 6044809853) CALVIN (test code = CALVIN) Association of [...] tests). Lab Interpretation Abnormal (test code = 12184-1) [facility] Test Item Value Reference Range Interpretation Comments MAGNESIUM (test code = 6453928600) 1.7 mg/dL 1.7-2.4 Lab Interpretation (test code = Normal 14170-1) [facility] WITH [id number] 21:22:43 Test Item Value Reference Range Interpretation [...] RDW-SD (test code = 43.3 fL 39.0-49.9 45453-9) RDW-CV (test code = 14.4 % 12.0-15.5 788-0) PLT (test code = 371 See_Comment H [Automated 777-3) message] The sy stem which generated this result transmitted reference range : 166 - 358 10*3/ ?L. The reference r doretha was not used to interpret this result as normal/abnormal . MPV (test code = 10.2 fL 9.5-12.9 10725-3) NRBC/100 WBC (test 0.0 See_Comment [Automat ed code = 6909696044) message] The system which generated this result transmitted reference range : 0.0 - 10.0 /100 WBCs. The refer ence range was not u sed to interpret th is result as normal/abnormal . NRBC x10^3 (test code See_Comment [Auto mated = 9256559232) message] The s ystem which generated this result transmitted reference range : 10*3/?L. The reference range was not used to interpret this result as normal/abnormal . GRAN MAT (NEUT) % 52.7 % (test code = 770-8) IMM GRAN % (test code 1.10 % = 6598624275) LYMPH % (test code = 36.6 % 736-9) MONO % (test code = 6.5 % 5905-5) EOS % (test code = 1.6 % 713-8) BASO % (test code = 1.5 % 706-2) GRAN MAT x10^3(ANC) 5.13 10*3/uL 1.88-7.09 (test code = 3267078348) IMM GRAN x10^3 (test 0.11 10*3/uL 0.00-0.06 H code = 6503682800) LYMPH x10^3 (test code 3.57 10*3/uL 1.32-3.29 H = 731-0) MONO x10^3 (test code 0.63 10*3/uL 0.33-0.92 = 742-7) EOS x10^3 (test code = 0.16 10*3/uL 0.03-0.39 711-2) BASO x10^3 (test code 0.15 10*3/uL 0.01-0.07 H = 704-7) Lab Interpretation Abnormal (test code = 49977-6) [facility] 20:35:54 Test Item Value Reference Range Interpretation Comments POCT GLU (test code = 7599650510) 400 mg/dL 70-110 H Lab Interpretation (test code = Abnormal 10072-5) [facility] Metabolic Panel (Na, K, Cl, CO2, Glucose, BUN, Creatinine, Ca)2022-06-22 03:47:00 Test Item Value Reference Range Interpretation Comments NA (test code = 136 mmol/L 135-145 8493262915) K (test code = 3.8 mmol/L 3.5-5.0 3035824109) CL (test code = 97 mmol/L 98-108 L 5659442466) CO2 TOTAL (test code = 24 mmol/L 23-31 9350250709) AGAP (test code = 2-16 0130294408) BUN (test code = 34 mg/dL 7-23 H 6273669703) GLUCOSE (test code = 270 mg/dL 70-110 H 3246222269) CREATININE (test code = 0.93 mg/dL 0.50-1.04 3266629565) CALCIUM (test code = 10.6 mg/dL 8.6-10.6 1636540746) eGFR (test code = mL/min/1.73m2 9306846628) CALVIN (test code = CALVIN) Association of [...] tests). Lab Interpretation Abnormal (test code = 94911-8) [facility] GLUCOSE (AUTOMATED)2022-06-22 03:46:00 Test Item Value Reference Range Interpretation Comments POCT GLU (test code = 4829099067) 256 mg/dL 70-110 H Lab Interpretation (test code = Abnormal 55700-5) [facility]A1C[facility]2022-06-22 03:08:04 Test Item Value Reference Range Interpretation Comments HGB A1C (test code = 12.0 % 4.0-5.7 H 4548-4) CALVIN (test code = CALVIN) Reference RangesNormal: <5.7%Prediabetes: 5.7 - 6.4%Diabetes: > 6.5% Lab Interpretation (test Abnormal code = 96503-2) [facility] GLUCOSE (AUTOMATED)2022-06-22 02:44:02 Test Item Value Reference Range Interpretation Comments POCT GLU (test code = 6148193642) 265 mg/dL 70-110 H Lab Interpretation (test code = Abnormal 19510-9) [facility] GLUCOSE(AGE >30DAYS)2022-06-22 02:39:00 Test Item Value Reference Range Interpretation Comments POCT Glu (age>30days) (test code = 265 mg/dL 70-110 A 3342) Lab Interpretation (test code = Abnormal 35350-3) [facility] [id number] 02:25:21 Test Item Value Reference Range Interpretation Comments MAGNESIUM (test code = 5264038506) 1.5 mg/dL 1.7-2.4 L Lab Interpretation (test code = Abnormal 29099-7) [facility]Phosph[facility] [id number] 02:25:01 Test Item Value Reference Range Interpretation Comments PHOSPHORUS (test code = 0875637764) 5.7 mg/dL 2.5-5.0 H Lab Interpretation (test code = Abnormal 34650-0) [facility] GLUCOSE (AUTOMATED)2022-06-22 01:44:15 Test Item Value Reference Range Interpretation Comments POCT GLU (test code = 8983498144) 298 mg/dL 70-110 H Lab Interpretation (test code = Abnormal 85929-6) [facility] WITH [id number] 01:28:41 Test Item Value Reference Range Interpretation [...] (test code = 37.1 fL 39.0-49.9 L 31877-5) RDW-CV (test code = 12.5 % 12.0-15.5 788-0) PLT (test code = See_Comment [Automated 777-3) message] The sy stem which generated this result transmitted reference range : 166 - 358 10*3/ ?L. The reference r doretha was not used to interpret this result as normal/abnormal . MPV (test code = 9.9 fL 9.5-12.9 79407-7) NRBC/100 WBC (test See_Comment [Automat ed code = 6489945234) message] The system which generated this result transmitted reference range : 0.0 - 10.0 /100 WBCs. The refer ence range was not u sed to interpret th is result as normal/abnormal . NRBC x10^3 (test code See_Comment [Auto mated = 2164937912) message] The s ystem which generated this result transmitted reference range : 10*3/?L. The reference range was not used to interpret this result as normal/abnormal . GRAN MAT (NEUT) % 40.5 % (test code = 770-8) IMM GRAN % (test code 0.90 % = 9135054425) LYMPH % (test code = 48.0 % 736-9) MONO % (test code = 8.5 % 5905-5) EOS % (test code = 1.1 % 713-8) BASO % (test code = 1.0 % 706-2) GRAN MAT x10^3(ANC) 4.35 10*3/uL 1.88-7.09 (test code = 4606154875) IMM GRAN x10^3 (test 0.10 10*3/uL 0.00-0.06 H code = 9291270994) LYMPH x10^3 (test code 5.17 10*3/uL 1.32-3.29 H = 731-0) MONO x10^3 (test code 0.92 10*3/uL 0.33-0.92 = 742-7) EOS x10^3 (test code = 0.12 10*3/uL 0.03-0.39 711-2) BASO x10^3 (test code 0.11 10*3/uL 0.01-0.07 H = 704-7) Lab Interpretation Abnormal (test code = 30751-1) [facility] [id number] 00:34:27 Test Item Value Reference Interpretation Comments Range TROPONIN I (test 0.000 ng/mL See_Comment [Automated code = 3399935964) message] The system which generated this result [...] biotin. Lab Interpretation Normal (test code = 39720-4) [facility] [id number] 00:31:09 Test Item Value Reference Range Interpretation Comments NT-proBNP (test code 21 pg/mL See_Comment [Autom ated = 4403507811) message] The system which generated this result transmitted reference range : <=125. The reference range was not used to interpret this result as normal/abnormal . CALVIN (test code = CALVIN) Biotin has been reported to cause a negative bias, interpret results relative to patient's use of biotin. Lab Interpretation Normal (test code = 86439-0) [facility] (NA, K, CL, CO2, GLUCOSE, BUN, CREATININE, CA)2022-06-22 00:22:03 Test Item Value Reference Range Interpretation Comments NA (test code = 133 mmol/L 135-145 L 0453115803) K (test code = 4.7 mmol/L 3.5-5.0 9801143724) CL (test code = 91 mmol/L 98-108 L 2459312942) CO2 TOTAL (test code = 24 mmol/L 23-31 4686324752) AGAP (test code = 2-16 H 6880216084) BUN (test code = 37 mg/dL 7-23 H 7646929516) GLUCOSE (test code = 385 mg/dL 70-110 H 8885948707) CREATININE (test code = 1.09 mg/dL 0.50-1.04 H 2704267148) CALCIUM (test code = 11.5 mg/dL 8.6-10.6 H 7594907601) eGFR (test code = mL/min/1.73m2 4090236704) CALVIN (test code = CALVIN) Association of [...] tests). Lab Interpretation Abnormal (test code = 03812-2) [facility] [id number] 00:00:00 Test Item Value Reference Range Interpretation Comments GLUCOSE (test code = 2217) 259 MG/DL BUN (test code = 2208) 17 MG/DL CREATININE (test code = 2214) 0.72 MG/DL eGFR (2020 CKD-EPI) (test 106 ML/MIN/1.73 code = 57341) CALC BUN/CREAT (test code = 24 RATIO [...] code = 2219) 38 U/L COMPREHENSIVE METABOLIC [id number] 00:00:00 Test Item Value Reference Range Interpretation Comments GLUCOSE (test code = 2217) 259 MG/DL BUN (test code = 2208) 17 MG/DL CREATININE (test code = 2214) 0.72 MG/DL eGFR (2020 CKD-EPI) (test 106 ML/MIN/1.73 code = 36521) CALC BUN/CREAT (test code = 24 RATIO [...] (test code = 2219) 38 U/L LIPID [id number] 00:00:00 Test Item Value Reference Range Interpretation Comments CHOLESTEROL (test code = 2210) 196 MG/DL TRIGLYCERIDES (test code = 2232) 500 MG/DL HDL CHOLESTEROL (test code = 31 MG/DL 2220) CALC LDL CHOL (test code = 2237) (NOTE) MG/DL RISK RATIO LDL/HDL (test code = (NOTE) RATIO 2238) LIPID [id number] 00:00:00 Test Item Value Reference Range Interpretation Comments CHOLESTEROL (test code = 2210) 196 MG/DL TRIGLYCERIDES (test code = 2232) 500 MG/DL HDL CHOLESTEROL (test code = 31 MG/DL 2220) CALC LDL CHOL (test code = 2237) (NOTE) MG/DL RISK RATIO LDL/HDL (test code = (NOTE) RATIO 2238) HEMOGLOBIN [id number] 00:00:00 Test Item Value Reference Range Interpretation Comments HEMOGLOBIN A1c (test code = 97554) 11.0 % HEMOGLOBIN [id number] 00:00:00 Test Item Value Reference Range Interpretation Comments HEMOGLOBIN A1c (test code = 09712) 11.0 % HEMOGLOBIN [id number] 00:00:00 Test Item Value Reference Range Interpretation Comments HEMOGLOBIN A1c (test code = 04646) 11.0 % COMPREHENSIVE METABOLIC [id number] 00:00:00 Test Item Value Reference Range Interpretation Comments GLUCOSE (test code = 2217) 259 MG/DL BUN (test code = 2208) 17 MG/DL CREATININE (test code = 2214) 0.72 MG/DL eGFR (2020 CKD-EPI) (test 106 ML/MIN/1.73 code = 13678) CALC BUN/CREAT (test code = 24 RATIO [...] code = 2219) 38 U/L COMPREHENSIVE METABOLIC [id number] 00:00:00 Test Item Value Reference Range Interpretation Comments GLUCOSE (test code = 2217) 259 MG/DL BUN (test code = 2208) 17 MG/DL CREATININE (test code = 2214) 0.72 MG/DL eGFR (2020 CKD-EPI) (test 106 ML/MIN/1.73 code = 42754) CALC BUN/CREAT (test code = 24 RATIO [...] (test code = 2219) 38 U/L LIPID [id number] 00:00:00 Test Item Value Reference Range Interpretation Comments CHOLESTEROL (test code = 2210) 196 MG/DL TRIGLYCERIDES (test code = 2232) 500 MG/DL HDL CHOLESTEROL (test code = 31 MG/DL 2220) CALC LDL CHOL (test code = 2237) (NOTE) MG/DL RISK RATIO LDL/HDL (test code = (NOTE) RATIO 2238) LIPID [id number] 00:00:00 Test Item Value Reference Range Interpretation Comments CHOLESTEROL (test code = 2210) 196 MG/DL TRIGLYCERIDES (test code = 2232) 500 MG/DL HDL CHOLESTEROL (test code = 31 MG/DL 2220) CALC LDL CHOL (test code = 2237) (NOTE) MG/DL RISK RATIO LDL/HDL (test code = (NOTE) RATIO 2238) HEMOGLOBIN [id number] 00:00:00 Test Item Value Reference Range Interpretation Comments HEMOGLOBIN A1c (test code = 11359) 11.0 % HEMOGLOBIN [id number] 00:00:00 Test Item Value Reference Range Interpretation Comments HEMOGLOBIN A1c (test code = 43406) 11.0 % HEMOGLOBIN [id number] 00:00:00 Test Item Value Reference Range Interpretation Comments HEMOGLOBIN A1c (test code = 48047) 11.0 % COMPREHENSIVE METABOLIC [id number] 00:00:00 Test Item Value Reference Range Interpretation Comments GLUCOSE (test code = 2217) 259 MG/DL BUN (test code = 2208) 17 MG/DL CREATININE (test code = 2214) 0.72 MG/DL eGFR (2020 CKD-EPI) (test 106 ML/MIN/1.73 code = 50392) CALC BUN/CREAT (test code = 24 RATIO [...] code = 2219) 38 U/L COMPREHENSIVE METABOLIC [id number] 00:00:00 Test Item Value Reference Range Interpretation Comments GLUCOSE (test code = 2217) 259 MG/DL BUN (test code = 2208) 17 MG/DL CREATININE (test code = 2214) 0.72 MG/DL eGFR (2020 CKD-EPI) (test 106 ML/MIN/1.73 code = 79521) CALC BUN/CREAT (test code = 24 RATIO [...] (test code = 2219) 38 U/L LIPID [id number] 00:00:00 Test Item Value Reference Range Interpretation Comments CHOLESTEROL (test code = 2210) 196 MG/DL TRIGLYCERIDES (test code = 2232) 500 MG/DL HDL CHOLESTEROL (test code = 31 MG/DL 2220) CALC LDL CHOL (test code = 2237) (NOTE) MG/DL RISK RATIO LDL/HDL (test code = (NOTE) RATIO 2238) LIPID [id number] 00:00:00 Test Item Value Reference Range Interpretation Comments CHOLESTEROL (test code = 2210) 196 MG/DL TRIGLYCERIDES (test code = 2232) 500 MG/DL HDL CHOLESTEROL (test code = 31 MG/DL 2220) CALC LDL CHOL (test code = 2237) (NOTE) MG/DL RISK RATIO LDL/HDL (test code = (NOTE) RATIO 2238) HEMOGLOBIN [id number] 00:00:00 Test Item Value Reference Range Interpretation Comments HEMOGLOBIN A1c (test code = 08049) 11.0 % HEMOGLOBIN [id number] 00:00:00 Test Item Value Reference Range Interpretation Comments HEMOGLOBIN A1c (test code = 77295) 11.0 % HEMOGLOBIN [id number] 00:00:00 Test Item Value Reference Range Interpretation Comments HEMOGLOBIN A1c (test code = 16266) 11.0 % COMPREHENSIVE METABOLIC [id number] 00:00:00 Test Item Value Reference Range Interpretation Comments GLUCOSE (test code = 2217) 259 MG/DL BUN (test code = 2208) 17 MG/DL CREATININE (test code = 2214) 0.72 MG/DL eGFR (2020 CKD-EPI) (test 106 ML/MIN/1.73 code = 74789) CALC BUN/CREAT (test code = 24 RATIO [...] code = 2219) 38 U/L COMPREHENSIVE METABOLIC [id number] 00:00:00 Test Item Value Reference Range Interpretation Comments GLUCOSE (test code = 2217) 259 MG/DL BUN (test code = 2208) 17 MG/DL CREATININE (test code = 2214) 0.72 MG/DL eGFR (2020 CKD-EPI) (test 106 ML/MIN/1.73 code = 25811) CALC BUN/CREAT (test code = 24 RATIO [...] (test code = 2219) 38 U/L LIPID [id number] 00:00:00 Test Item Value Reference Range Interpretation Comments CHOLESTEROL (test code = 2210) 196 MG/DL TRIGLYCERIDES (test code = 2232) 500 MG/DL HDL CHOLESTEROL (test code = 31 MG/DL 2220) CALC LDL CHOL (test code = 2237) (NOTE) MG/DL RISK RATIO LDL/HDL (test code = (NOTE) RATIO 2238) LIPID [id number] 00:00:00 Test Item Value Reference Range Interpretation Comments CHOLESTEROL (test code = 2210) 196 MG/DL TRIGLYCERIDES (test code = 2232) 500 MG/DL HDL CHOLESTEROL (test code = 31 MG/DL 2220) CALC LDL CHOL (test code = 2237) (NOTE) MG/DL RISK RATIO LDL/HDL (test code = (NOTE) RATIO 2238) HEMOGLOBIN [id number] 00:00:00 Test Item Value Reference Range Interpretation Comments HEMOGLOBIN A1c (test code = 63179) 11.0 % HEMOGLOBIN [id number] 00:00:00 Test Item Value Reference Range Interpretation Comments HEMOGLOBIN A1c (test code = 28816) 11.0 % HEMOGLOBIN [id number] 00:00:00 Test Item Value Reference Range Interpretation Comments HEMOGLOBIN A1c (test code = 47933) 11.0 % VAGINAL PATHOGENS DNA [id number] 15:33:03 Test Item Value Reference Range Interpretation Comments ANDIE SPECIES (test NEGATIVE NEGATIVE code = ) G. VAGINALIS (test NEGATIVE NEGATIVE code = 10138) T. VAGINALIS (test NEGATIVE NEGATIVE UNLESS O THERWISE code = 64362) INDICATED, ALL TESTING PERFORMED [facility] PATHOLOGY [facility]. [address] [place] [address] 4 LABORATORY DIRE CTOR: NOAH TODD M.D. CLIA NUMBER [id number] [facility] [place]. [id number] VAGINAL PATHOGENS DNA [id number] 00:00:00 Test Item Value Reference Range Interpretation Comments ANDIE SPECIES (test code = 98495) NEGATIVE G. VAGINALIS (test code = 70741) NEGATIVE T. VAGINALIS (test code = 46722) NEGATIVE VAGINAL PATHOGENS DNA [id number] 00:00:00 Test Item Value Reference Range Interpretation Comments ANDIE SPECIES (test code = 51636) NEGATIVE G. VAGINALIS (test code = 84011) NEGATIVE T. VAGINALIS (test code = 36871) NEGATIVE VAGINAL PATHOGENS DNA [id number] 00:00:00 Test Item Value Reference Range Interpretation Comments ANDIE SPECIES (test code = 26783) NEGATIVE G. VAGINALIS (test code = 08659) NEGATIVE T. VAGINALIS (test code = 64837) NEGATIVE VAGINAL PATHOGENS DNA [id number] 00:00:00 Test Item Value Reference Range Interpretation Comments ANDIE SPECIES (test code = 36364) NEGATIVE G. VAGINALIS (test code = 12687) NEGATIVE T. VAGINALIS (test code = 73543) NEGATIVE VAGINAL PATHOGENS DNA [id number] 00:00:00 Test Item Value Reference Range Interpretation Comments ANDIE SPECIES (test code = 24379) NEGATIVE G. VAGINALIS (test code = 19037) NEGATIVE T. VAGINALIS (test code = 99528) NEGATIVE VAGINAL PATHOGENS DNA [id number] 00:00:00 Test Item Value Reference Range Interpretation Comments ANDIE SPECIES (test code = 06353) NEGATIVE G. VAGINALIS (test code = 22049) NEGATIVE T. VAGINALIS (test code = 27778) NEGATIVE VAGINAL PATHOGENS DNA [id number] 00:00:00 Test Item Value Reference Range Interpretation Comments ANDIE SPECIES (test code = 18169) NEGATIVE G. VAGINALIS (test code = 72534) NEGATIVE T. VAGINALIS (test code = 88038) NEGATIVE VAGINAL PATHOGENS DNA [id number] 00:00:00 Test Item Value Reference Range Interpretation Comments ANDIE SPECIES (test code = ) NEGATIVE G. VAGINALIS (test code = 44606) NEGATIVE T. VAGINALIS (test code = 89938) NEGATIVE VAGINAL PATHOGENS DNA [id number] 00:00:00 Test Item Value Reference Range Interpretation Comments ANDIE SPECIES (test code = ) NEGATIVE G. VAGINALIS (test code = 43266) NEGATIVE T. VAGINALIS (test code = 04021) NEGATIVE VAGINAL PATHOGENS DNA [id number] 00:00:00 Test Item Value Reference Range Interpretation Comments ANDIE SPECIES (test code = ) NEGATIVE G. VAGINALIS (test code = 97272) NEGATIVE T. VAGINALIS (test code = 82440) NEGATIVE CULTURE, [id number] 14:55:44SPECIMEN NUMBER: [id number] CULTURE, URINE SPECIMEN NUMBER: [id number] SPECIMEN COMMENT: URINE SOURCE: URINE REPORT STATUS: FINAL FINAL REPORT: 04/11/2022 <10,000 CFU/ML UROGENITAL NORMA PRESENT NO C OMMON PATHOGENSCULTURE, [id number] 00:00:00 Test Item Value Reference Range Interpretation Comments CULTURE, URINE (test SPECIMEN NUMBER: code = 33816) [id number] CULTURE, [id number] 00:00:00 Test Item Value Reference Range Interpretation Comments CULTURE, URINE (test SPECIMEN NUMBER: code = 86097) [id number] CULTURE, [id number] 00:00:00 Test Item Value Reference Range Interpretation Comments CULTURE, URINE (test SPECIMEN NUMBER: code = 24079) [id number] CULTURE, [id number] 00:00:00 Test Item Value Reference Range Interpretation Comments CULTURE, URINE (test SPECIMEN NUMBER: code = 52977) [id number] CULTURE, [id number] 00:00:00 Test Item Value Reference Range Interpretation Comments CULTURE, URINE (test SPECIMEN NUMBER: code = 82277) [id number] CULTURE, [id number] 00:00:00 Test Item Value Reference Range Interpretation Comments CULTURE, URINE (test SPECIMEN NUMBER: code = 09723) [id number] CULTURE, [id number] 00:00:00 Test Item Value Reference Range Interpretation Comments CULTURE, URINE (test SPECIMEN NUMBER: code = 05673) [id number] CULTURE, [id number] 00:00:00 Test Item Value Reference Range Interpretation Comments CULTURE, URINE (test SPECIMEN NUMBER: code = 58569) [id number] CULTURE, [id number] 00:00:00 Test Item Value Reference Range Interpretation Comments CULTURE, URINE (test SPECIMEN NUMBER: code = 87367) [id number] CULTURE, [id number] 00:00:00 Test Item Value Reference Range Interpretation Comments CULTURE, URINE (test SPECIMEN NUMBER: code = 63580) [id number] CULTURE, [id number] 00:00:00 Test Item Value Reference Range Interpretation Comments CULTURE, URINE (test SPECIMEN NUMBER: code = 31838) [id number] CULTURE, [id number] 00:00:00 Test Item Value Reference Range Interpretation Comments CULTURE, URINE (test SPECIMEN NUMBER: code = 21908) [id number] CULTURE, [id number] 00:00:00 Test Item Value Reference Range Interpretation Comments CULTURE, URINE (test SPECIMEN NUMBER: code = 69599) [id number] CULTURE, [id number] 00:00:00 Test Item Value Reference Range Interpretation Comments CULTURE, URINE (test SPECIMEN NUMBER: code = 11601) [id number] CBC W/AUTO DIFF WITH [id number] 02:13:01 Test Item Value Reference Range Interpretation [...] message] code = 1065) WBC'S The system [employer] generated this result transmitted ref erence range: [...] ABS NUCLEATED RBCS 0.00 K/UL 0.00-0.11 UNLESS OTHERWISE (test code = 67040) INDICATE D, ALL TESTING PERFORM ED AT[facility]ICAL PATH [facility]IES, [facility]. [address] [place] [id number] [place] [address] DIRECTOR: NOAH DICKENS M.D. CLIA NUMBER [id number] CAP ACCREDITATION N O. [id number] CBC W/AUTO [id number] 00:00:00 Test Item Value Reference Range Interpretation [...] NUCLEATED RBCS (test code = 0.00 K/UL 05001) CBC W/AUTO [id number] 00:00:00 Test Item Value Reference Range Interpretation [...] NUCLEATED RBCS (test code = 0.00 K/UL 66696) CBC W/AUTO [id number] 00:00:00 Test Item Value Reference Range Interpretation [...] NUCLEATED RBCS (test code = 0.00 K/UL 55617) CBC W/AUTO [id number] 00:00:00 Test Item Value Reference Range Interpretation [...] NUCLEATED RBCS (test code = 0.00 K/UL 64800) CBC W/AUTO [id number] 00:00:00 Test Item Value Reference Range Interpretation [...] NUCLEATED RBCS (test code = 0.00 K/UL 20155) CBC W/AUTO [id number] 00:00:00 Test Item Value Reference Range Interpretation [...] NUCLEATED RBCS (test code = 0.00 K/UL 82755) CBC W/AUTO [id number] 00:00:00 Test Item Value Reference Range Interpretation [...] NUCLEATED RBCS (test code = 0.00 K/UL 69295) CBC W/AUTO [id number] 00:00:00 Test Item Value Reference Range Interpretation [...] NUCLEATED RBCS (test code = 0.00 K/UL 42846) CBC W/AUTO [id number] 00:00:00 Test Item Value Reference Range Interpretation [...] NUCLEATED RBCS (test code = 0.00 K/UL 26188) CBC W/AUTO [id number] 00:00:00 Test Item Value Reference Range Interpretation [...] NUCLEATED RBCS (test code = 0.00 K/UL 74075) CBC W/AUTO [id number] 00:00:00 Test Item Value Reference Range Interpretation [...] NUCLEATED RBCS (test code = 0.00 K/UL 13802) CBC W/AUTO [id number] 00:00:00 Test Item Value Reference Range Interpretation [...] NUCLEATED RBCS (test code = 0.00 K/UL 40134) CBC W/AUTO [id number] 00:00:00 Test Item Value Reference Range Interpretation [...] NUCLEATED RBCS (test code = 0.00 K/UL 49653) CBC W/AUTO [id number] 00:00:00 Test Item Value Reference Range Interpretation [...] code = 0.00 K/UL 38655) CBC W/AUTO [id number] 00:00:00 Test Item Value Reference Range Interpretation [...] NUCLEATED RBCS (test code = 0.00 K/UL 74397) CBC W/AUTO [id number] 00:00:00 Test Item Value Reference Range Interpretation [...] NUCLEATED RBCS (test code = 0.00 K/UL 12155) CBC W/AUTO [id number] 00:00:00 Test Item Value Reference Range Interpretation [...] NUCLEATED RBCS (test code = 0.00 K/UL 15689) CBC W/AUTO [id number] 00:00:00 Test Item Value Reference Range Interpretation [...] NUCLEATED RBCS (test code = 0.00 K/UL 60292) CBC W/AUTO [id number] 00:00:00 Test Item Value Reference Range Interpretation [...] NUCLEATED RBCS (test code = 0.00 K/UL 39725) CBC W/AUTO [id number] 00:00:00 Test Item Value Reference Range Interpretation [...] NUCLEATED RBCS (test code = 0.00 K/UL 76005) CBC W/AUTO [id number] 00:00:00 Test Item Value Reference Range Interpretation [...] NUCLEATED RBCS (test code = 0.00 K/UL 73471) COMPREHENSIVE METABOLIC [id number] 04:26:32 Test Item Value Reference Range Interpretation Comments GLUCOSE (test code = 122 MG/DL 70-99 H 2216) BUN (test code = 11 MG/DL 6-20 2207) CREATININE (test 0.65 MG/DL 0.60-1.30 code = 2214) eGFR (2020 CKD-EPI) 111 >60 (test code = 96292) ML/MIN/1.73 CALC BUN/CREAT (test 17 RATIO 6-28 code = 2235) SODIUM (test code = 145 MEQ/L 581-101 4916) POTASSIUM (test code 4.2 MEQ/L 3.5-5.4 = 222) CHLORIDE (test code 107 MEQ/L 95-107 = [...] code = 38 U/L 5-40 2218) LIPID [id number] 04:26:32 Test Item Value Reference Range Interpretation [...] MOREINFORMATION , SEE CLIENT ANNOUNCE MENT AT [email or web address] /CalcLDL-C RISK RATIO LDL/HDL 2.84 RATIO <3.22 (test code = 2238) HEMOGLOBIN [id number] 04:03:31 Test Item Value Reference Range Interpretation Comments HEMOGLOBIN A1c (test 10.9 % 4.2-5.6 H AMERIC AN DIABETES code = 04799) ASSOCIATION [employer] FOR HGB A1C: PREDIABETES/INC REASED [...] INDICATED, ALL TESTING PER FORMED ATCLINICAL PATH [employer], [facility]. [address] [place] [address] LABORATORY DIRE CTOR: Carlos Enrique BERNARD CLIA NUMBER [id number] CAP ACCREDITATION N O. [id number] COMPREHENSIVE METABOLIC [id number] 00:00:00 Test Item Value Reference Range Interpretation Comments GLUCOSE (test code = 2217) 122 MG/DL BUN (test code = 2208) 11 MG/DL CREATININE (test code = 2214) 0.65 MG/DL eGFR (2020 CKD-EPI) (test 111 ML/MIN/1.73 code = 45773) CALC BUN/CREAT (test code = 17 RATIO [...] code = 2219) 38 U/L COMPREHENSIVE METABOLIC [id number] 00:00:00 Test Item Value Reference Range Interpretation Comments GLUCOSE (test code = 2217) 122 MG/DL BUN (test code = 2208) 11 MG/DL CREATININE (test code = 2214) 0.65 MG/DL eGFR (2020 CKD-EPI) (test 111 ML/MIN/1.73 code = 74311) CALC BUN/CREAT (test code = 17 RATIO [...] (test code = 2219) 38 U/L LIPID [id number] 00:00:00 Test Item Value Reference Range Interpretation Comments CHOLESTEROL (test code = 2210) 169 MG/DL TRIGLYCERIDES (test code = 2232) 346 MG/DL HDL CHOLESTEROL (test code = 2220) 32 MG/DL CALC LDL CHOL (test code = 2237) 91 MG/DL RISK RATIO LDL/HDL (test code = 2.84 RATIO 2238) LIPID [id number] 00:00:00 Test Item Value Reference Range Interpretation Comments CHOLESTEROL (test code = 2210) 169 MG/DL TRIGLYCERIDES (test code = 2232) 346 MG/DL HDL CHOLESTEROL (test code = 2220) 32 MG/DL CALC LDL CHOL (test code = 2237) 91 MG/DL RISK RATIO LDL/HDL (test code = 2.84 RATIO 2238) HEMOGLOBIN [id number] 00:00:00 Test Item Value Reference Range Interpretation Comments HEMOGLOBIN A1c (test code = 10195) 10.9 % HEMOGLOBIN [id number] 00:00:00 Test Item Value Reference Range Interpretation Comments HEMOGLOBIN A1c (test code = 31855) 10.9 % HEMOGLOBIN [id number] 00:00:00 Test Item Value Reference Range Interpretation Comments HEMOGLOBIN A1c (test code = 39320) 10.9 % COMPREHENSIVE METABOLIC [id number] 00:00:00 Test Item Value Reference Range Interpretation Comments GLUCOSE (test code = 2217) 122 MG/DL BUN (test code = 2208) 11 MG/DL CREATININE (test code = 2214) 0.65 MG/DL eGFR (2020 CKD-EPI) (test 111 ML/MIN/1.73 code = 55907) CALC BUN/CREAT (test code = 17 RATIO [...] code = 2219) 38 U/L COMPREHENSIVE METABOLIC [id number] 00:00:00 Test Item Value Reference Range Interpretation Comments GLUCOSE (test code = 2217) 122 MG/DL BUN (test code = 2208) 11 MG/DL CREATININE (test code = 2214) 0.65 MG/DL eGFR (2020 CKD-EPI) (test 111 ML/MIN/1.73 code = 20082) CALC BUN/CREAT (test code = 17 RATIO [...] (test code = 2219) 38 U/L LIPID [id number] 00:00:00 Test Item Value Reference Range Interpretation Comments CHOLESTEROL (test code = 2210) 169 MG/DL TRIGLYCERIDES (test code = 2232) 346 MG/DL HDL CHOLESTEROL (test code = 2220) 32 MG/DL CALC LDL CHOL (test code = 2237) 91 MG/DL RISK RATIO LDL/HDL (test code = 2.84 RATIO 2238) LIPID [id number] 00:00:00 Test Item Value Reference Range Interpretation Comments CHOLESTEROL (test code = 2210) 169 MG/DL TRIGLYCERIDES (test code = 2232) 346 MG/DL HDL CHOLESTEROL (test code = 2220) 32 MG/DL CALC LDL CHOL (test code = 2237) 91 MG/DL RISK RATIO LDL/HDL (test code = 2.84 RATIO 2238) HEMOGLOBIN [id number] 00:00:00 Test Item Value Reference Range Interpretation Comments HEMOGLOBIN A1c (test code = 05105) 10.9 % HEMOGLOBIN [id number] 00:00:00 Test Item Value Reference Range Interpretation Comments HEMOGLOBIN A1c (test code = 66797) 10.9 % HEMOGLOBIN [id number] 00:00:00 Test Item Value Reference Range Interpretation Comments HEMOGLOBIN A1c (test code = 30146) 10.9 % COMPREHENSIVE METABOLIC [id number] 00:00:00 Test Item Value Reference Range Interpretation Comments GLUCOSE (test code = 2217) 122 MG/DL BUN (test code = 2208) 11 MG/DL CREATININE (test code = 2214) 0.65 MG/DL eGFR (2020 CKD-EPI) (test 111 ML/MIN/1.73 code = 51921) CALC BUN/CREAT (test code = 17 RATIO [...] code = 2219) 38 U/L COMPREHENSIVE METABOLIC [id number] 00:00:00 Test Item Value Reference Range Interpretation Comments GLUCOSE (test code = 2217) 122 MG/DL BUN (test code = 2208) 11 MG/DL CREATININE (test code = 2214) 0.65 MG/DL eGFR (2020 CKD-EPI) (test 111 ML/MIN/1.73 code = 83224) CALC BUN/CREAT (test code = 17 RATIO [...] (test code = 2219) 38 U/L LIPID [id number] 00:00:00 Test Item Value Reference Range Interpretation Comments CHOLESTEROL (test code = 2210) 169 MG/DL TRIGLYCERIDES (test code = 2232) 346 MG/DL HDL CHOLESTEROL (test code = 2220) 32 MG/DL CALC LDL CHOL (test code = 2237) 91 MG/DL RISK RATIO LDL/HDL (test code = 2.84 RATIO 2238) LIPID [id number] 00:00:00 Test Item Value Reference Range Interpretation Comments CHOLESTEROL (test code = 2210) 169 MG/DL TRIGLYCERIDES (test code = 2232) 346 MG/DL HDL CHOLESTEROL (test code = 2220) 32 MG/DL CALC LDL CHOL (test code = 2237) 91 MG/DL RISK RATIO LDL/HDL (test code = 2.84 RATIO 2238) HEMOGLOBIN [id number] 00:00:00 Test Item Value Reference Range Interpretation Comments HEMOGLOBIN A1c (test code = 20586) 10.9 % HEMOGLOBIN [id number] 00:00:00 Test Item Value Reference Range Interpretation Comments HEMOGLOBIN A1c (test code = 06587) 10.9 % HEMOGLOBIN [id number] 00:00:00 Test Item Value Reference Range Interpretation Comments HEMOGLOBIN A1c (test code = 29984) 10.9 % COMPREHENSIVE METABOLIC [id number] 00:00:00 Test Item Value Reference Range Interpretation Comments GLUCOSE (test code = 2217) 122 MG/DL BUN (test code = 2208) 11 MG/DL CREATININE (test code = 2214) 0.65 MG/DL eGFR (2020 CKD-EPI) (test 111 ML/MIN/1.73 code = 88906) CALC BUN/CREAT (test code = 17 RATIO [...] code = 2219) 38 U/L COMPREHENSIVE METABOLIC [id number] 00:00:00 Test Item Value Reference Range Interpretation Comments GLUCOSE (test code = 2217) 122 MG/DL BUN (test code = 2208) 11 MG/DL CREATININE (test code = 2214) 0.65 MG/DL eGFR (2020 CKD-EPI) (test 111 ML/MIN/1.73 code = 48873) CALC BUN/CREAT (test code = 17 RATIO [...] (test code = 2219) 38 U/L LIPID [id number] 00:00:00 Test Item Value Reference Range Interpretation Comments CHOLESTEROL (test code = 2210) 169 MG/DL TRIGLYCERIDES (test code = 2232) 346 MG/DL HDL CHOLESTEROL (test code = 2220) 32 MG/DL CALC LDL CHOL (test code = 2237) 91 MG/DL RISK RATIO LDL/HDL (test code = 2.84 RATIO 2238) LIPID [id number] 00:00:00 Test Item Value Reference Range Interpretation Comments CHOLESTEROL (test code = 2210) 169 MG/DL TRIGLYCERIDES (test code = 2232) 346 MG/DL HDL CHOLESTEROL (test code = 2220) 32 MG/DL CALC LDL CHOL (test code = 2237) 91 MG/DL RISK RATIO LDL/HDL (test code = 2.84 RATIO 2238) HEMOGLOBIN [id number] 00:00:00 Test Item Value Reference Range Interpretation Comments HEMOGLOBIN A1c (test code = 82997) 10.9 % HEMOGLOBIN [id number] 00:00:00 Test Item Value Reference Range Interpretation Comments HEMOGLOBIN A1c (test code = 16370) 10.9 % HEMOGLOBIN [id number] 00:00:00 Test Item Value Reference Range Interpretation Comments HEMOGLOBIN A1c (test code = 06604) 10.9 % COMPREHENSIVE METABOLIC [id number] 00:00:00 Test Item Value Reference Range Interpretation Comments GLUCOSE (test code = 2217) 122 MG/DL BUN (test code = 2208) 11 MG/DL CREATININE (test code = 2214) 0.65 MG/DL eGFR (2020 CKD-EPI) (test 111 ML/MIN/1.73 code = 73378) CALC BUN/CREAT (test code = 17 RATIO [...] code = 2219) 38 U/L COMPREHENSIVE METABOLIC [id number] 00:00:00 Test Item Value Reference Range Interpretation Comments GLUCOSE (test code = 2217) 122 MG/DL BUN (test code = 2208) 11 MG/DL CREATININE (test code = 2214) 0.65 MG/DL eGFR (2020 CKD-EPI) (test 111 ML/MIN/1.73 code = 18844) CALC BUN/CREAT (test code = 17 RATIO [...] (test code = 2219) 38 U/L LIPID [id number] 00:00:00 Test Item Value Reference Range Interpretation Comments CHOLESTEROL (test code = 2210) 169 MG/DL TRIGLYCERIDES (test code = 2232) 346 MG/DL HDL CHOLESTEROL (test code = 2220) 32 MG/DL CALC LDL CHOL (test code = 2237) 91 MG/DL RISK RATIO LDL/HDL (test code = 2.84 RATIO 2238) LIPID [id number] 00:00:00 Test Item Value Reference Range Interpretation Comments CHOLESTEROL (test code = 2210) 169 MG/DL TRIGLYCERIDES (test code = 2232) 346 MG/DL HDL CHOLESTEROL (test code = 2220) 32 MG/DL CALC LDL CHOL (test code = 2237) 91 MG/DL RISK RATIO LDL/HDL (test code = 2.84 RATIO 2238) HEMOGLOBIN [id number] 00:00:00 Test Item Value Reference Range Interpretation Comments HEMOGLOBIN A1c (test code = 73580) 10.9 % HEMOGLOBIN [id number] 00:00:00 Test Item Value Reference Range Interpretation Comments HEMOGLOBIN A1c (test code = 94627) 10.9 % HEMOGLOBIN [id number] 00:00:00 Test Item Value Reference Range Interpretation Comments HEMOGLOBIN A1c (test code = 57514) 10.9 % COMPREHENSIVE METABOLIC [id number] 00:00:00 Test Item Value Reference Range Interpretation Comments GLUCOSE (test code = 2217) 122 MG/DL BUN (test code = 2208) 11 MG/DL CREATININE (test code = 2214) 0.65 MG/DL eGFR (2020 CKD-EPI) (test 111 ML/MIN/1.73 code = 84172) CALC BUN/CREAT (test code = 17 RATIO [...] code = 2219) 38 U/L COMPREHENSIVE METABOLIC [id number] 00:00:00 Test Item Value Reference Range Interpretation Comments GLUCOSE (test code = 2217) 122 MG/DL BUN (test code = 2208) 11 MG/DL CREATININE (test code = 2214) 0.65 MG/DL eGFR (2020 CKD-EPI) (test 111 ML/MIN/1.73 code = 43814) CALC BUN/CREAT (test code = 17 RATIO [...] (test code = 2219) 38 U/L LIPID [id number] 00:00:00 Test Item Value Reference Range Interpretation Comments CHOLESTEROL (test code = 2210) 169 MG/DL TRIGLYCERIDES (test code = 2232) 346 MG/DL HDL CHOLESTEROL (test code = 2220) 32 MG/DL CALC LDL CHOL (test code = 2237) 91 MG/DL RISK RATIO LDL/HDL (test code = 2.84 RATIO 2238) LIPID [id number] 00:00:00 Test Item Value Reference Range Interpretation Comments CHOLESTEROL (test code = 2210) 169 MG/DL TRIGLYCERIDES (test code = 2232) 346 MG/DL HDL CHOLESTEROL (test code = 2220) 32 MG/DL CALC LDL CHOL (test code = 2237) 91 MG/DL RISK RATIO LDL/HDL (test code = 2.84 RATIO 2238) HEMOGLOBIN [id number] 00:00:00 Test Item Value Reference Range Interpretation Comments HEMOGLOBIN A1c (test code = 55317) 10.9 % HEMOGLOBIN [id number] 00:00:00 Test Item Value Reference Range Interpretation Comments HEMOGLOBIN A1c (test code = 91915) 10.9 % HEMOGLOBIN [id number] 00:00:00 Test Item Value Reference Range Interpretation Comments HEMOGLOBIN A1c (test code = 11986) 10.9 % COMPREHENSIVE METABOLIC [id number] 00:00:00 Test Item Value Reference Range Interpretation Comments GLUCOSE (test code = 2217) 122 MG/DL BUN (test code = 2208) 11 MG/DL CREATININE (test code = 2214) 0.65 MG/DL eGFR (2020 CKD-EPI) (test 111 ML/MIN/1.73 code = 97296) CALC BUN/CREAT (test code = 17 RATIO [...] code = 2219) 38 U/L COMPREHENSIVE METABOLIC [id number] 00:00:00 Test Item Value Reference Range Interpretation Comments GLUCOSE (test code = 2217) 122 MG/DL BUN (test code = 2208) 11 MG/DL CREATININE (test code = 2214) 0.65 MG/DL eGFR (2020 CKD-EPI) (test 111 ML/MIN/1.73 code = 26278) CALC BUN/CREAT (test code = 17 RATIO [...] (test code = 2219) 38 U/L LIPID [id number] 00:00:00 Test Item Value Reference Range Interpretation Comments CHOLESTEROL (test code = 2210) 169 MG/DL TRIGLYCERIDES (test code = 2232) 346 MG/DL HDL CHOLESTEROL (test code = 2220) 32 MG/DL CALC LDL CHOL (test code = 2237) 91 MG/DL RISK RATIO LDL/HDL (test code = 2.84 RATIO 2238) LIPID [id number] 00:00:00 Test Item Value Reference Range Interpretation Comments CHOLESTEROL (test code = 2210) 169 MG/DL TRIGLYCERIDES (test code = 2232) 346 MG/DL HDL CHOLESTEROL (test code = 2220) 32 MG/DL CALC LDL CHOL (test code = 2237) 91 MG/DL RISK RATIO LDL/HDL (test code = 2.84 RATIO 2238) HEMOGLOBIN [id number] 00:00:00 Test Item Value Reference Range Interpretation Comments HEMOGLOBIN A1c (test code = 79202) 10.9 % HEMOGLOBIN [id number] 00:00:00 Test Item Value Reference Range Interpretation Comments HEMOGLOBIN A1c (test code = 42099) 10.9 % HEMOGLOBIN [id number] 00:00:00 Test Item Value Reference Range Interpretation Comments HEMOGLOBIN A1c (test code = 55295) 10.9 % COMPREHENSIVE METABOLIC [id number] 00:00:00 Test Item Value Reference Range Interpretation Comments GLUCOSE (test code = 2217) 122 MG/DL BUN (test code = 2208) 11 MG/DL CREATININE (test code = 2214) 0.65 MG/DL eGFR (2020 CKD-EPI) (test 111 ML/MIN/1.73 code = 56575) CALC BUN/CREAT (test code = 17 RATIO [...] code = 2219) 38 U/L COMPREHENSIVE METABOLIC [id number] 00:00:00 Test Item Value Reference Range Interpretation Comments GLUCOSE (test code = 2217) 122 MG/DL BUN (test code = 2208) 11 MG/DL CREATININE (test code = 2214) 0.65 MG/DL eGFR (2020 CKD-EPI) (test 111 ML/MIN/1.73 code = 74459) CALC BUN/CREAT (test code = 17 RATIO [...] (test code = 2219) 38 U/L LIPID [id number] 00:00:00 Test Item Value Reference Range Interpretation Comments CHOLESTEROL (test code = 2210) 169 MG/DL TRIGLYCERIDES (test code = 2232) 346 MG/DL HDL CHOLESTEROL (test code = 2220) 32 MG/DL CALC LDL CHOL (test code = 2237) 91 MG/DL RISK RATIO LDL/HDL (test code = 2.84 RATIO 2238) LIPID [id number] 00:00:00 Test Item Value Reference Range Interpretation Comments CHOLESTEROL (test code = 2210) 169 MG/DL TRIGLYCERIDES (test code = 2232) 346 MG/DL HDL CHOLESTEROL (test code = 2220) 32 MG/DL CALC LDL CHOL (test code = 2237) 91 MG/DL RISK RATIO LDL/HDL (test code = 2.84 RATIO 2238) HEMOGLOBIN [id number] 00:00:00 Test Item Value Reference Range Interpretation Comments HEMOGLOBIN A1c (test code = 02773) 10.9 % HEMOGLOBIN [id number] 00:00:00 Test Item Value Reference Range Interpretation Comments HEMOGLOBIN A1c (test code = 34047) 10.9 % HEMOGLOBIN [id number] 00:00:00 Test Item Value Reference Range Interpretation Comments HEMOGLOBIN A1c (test code = 65796) 10.9 % COMPREHENSIVE METABOLIC [id number] 00:00:00 Test Item Value Reference Range Interpretation Comments GLUCOSE (test code = 2217) 122 MG/DL BUN (test code = 2208) 11 MG/DL CREATININE (test code = 2214) 0.65 MG/DL eGFR (2020 CKD-EPI) (test 111 ML/MIN/1.73 code = 02654) CALC BUN/CREAT (test code = 17 RATIO [...] code = 2219) 38 U/L COMPREHENSIVE METABOLIC [id number] 00:00:00 Test Item Value Reference Range Interpretation Comments GLUCOSE (test code = 2217) 122 MG/DL BUN (test code = 2208) 11 MG/DL CREATININE (test code = 2214) 0.65 MG/DL eGFR (2020 CKD-EPI) (test 111 ML/MIN/1.73 code = 17170) CALC BUN/CREAT (test code = 17 RATIO [...] (test code = 2219) 38 U/L LIPID [id number] 00:00:00 Test Item Value Reference Range Interpretation Comments CHOLESTEROL (test code = 2210) 169 MG/DL TRIGLYCERIDES (test code = 2232) 346 MG/DL HDL CHOLESTEROL (test code = 2220) 32 MG/DL CALC LDL CHOL (test code = 2237) 91 MG/DL RISK RATIO LDL/HDL (test code = 2.84 RATIO 2238) LIPID [id number] 00:00:00 Test Item Value Reference Range Interpretation Comments CHOLESTEROL (test code = 2210) 169 MG/DL TRIGLYCERIDES (test code = 2232) 346 MG/DL HDL CHOLESTEROL (test code = 2220) 32 MG/DL CALC LDL CHOL (test code = 2237) 91 MG/DL RISK RATIO LDL/HDL (test code = 2.84 RATIO 2238) HEMOGLOBIN [id number] 00:00:00 Test Item Value Reference Range Interpretation Comments HEMOGLOBIN A1c (test code = 27792) 10.9 % HEMOGLOBIN [id number] 00:00:00 Test Item Value Reference Range Interpretation Comments HEMOGLOBIN A1c (test code = 29526) 10.9 % HEMOGLOBIN [id number] 00:00:00 Test Item Value Reference Range Interpretation Comments HEMOGLOBIN A1c (test code = 00464) 10.9 % VITAMIN D, 25 [id number] 04:13:44 Test Item Value Reference Range Interpretation [...] ATED, ALL TESTING PERFORM ED ATCLINICAL PATH [facility], [facility]. [address] [place] [address] LABORATORY DIRE CTOR: Carlos Enrique BERNARD. CLIA NUMBER [id number] CAP ACCREDITATION N O. [id number] HIV 1/2 4TH GEN, RFLX [id number] 03:26:41 Test Item Value Reference Range Interpretation Comments HIV 1/2 4TH GEN, RFLX CONF (test NON-REACTIVE NON-REACTIVE code = 3514) ALBUMIN, URINE, [id number] 02:46:02 Test Item Value Reference Range Interpretation Comments ALBUMIN, URINE, RANDOM (test code 10.2 MG/DL NOT ESTAB = 22334) MICROALBUMIN, [id number] 00:00:00 Test Item Value Reference Range Interpretation Comments ALBUMIN, URINE, RANDOM (test code 10.2 MG/DL = 63937) MICROALBUMIN, [id number] 00:00:00 Test Item Value Reference Range Interpretation Comments ALBUMIN, URINE, RANDOM (test code 10.2 MG/DL = 74864) HIV AB/AG COMBO RFLX [id number] 00:00:00 Test Item Value Reference Range Interpretation Comments HIV 1/2 4TH GEN, RFLX CONF (test NON-REACTIVE code = 3514) HIV AB/AG COMBO RFLX [id number] 00:00:00 Test Item Value Reference Range Interpretation Comments HIV 1/2 4TH GEN, RFLX CONF (test NON-REACTIVE code = 3514) VITAMIN D, 25 [id number] 00:00:00 Test Item Value Reference Range Interpretation Comments VITAMIN D, 25 [place] (test code = 4958) 18 NG/ML VITAMIN D, 25 [id number] 00:00:00 Test Item Value Reference Range Interpretation Comments VITAMIN D, 25 [place] (test code = 4958) 18 NG/ML MICROALBUMIN, [id number] 00:00:00 Test Item Value Reference Range Interpretation Comments ALBUMIN, URINE, RANDOM (test code 10.2 MG/DL = 22947) MICROALBUMIN, [id number] 00:00:00 Test Item Value Reference Range Interpretation Comments ALBUMIN, URINE, RANDOM (test code 10.2 MG/DL = 03625) HIV AB/AG COMBO RFLX [id number] 00:00:00 Test Item Value Reference Range Interpretation Comments HIV 1/2 4TH GEN, RFLX CONF (test NON-REACTIVE code = 3514) HIV AB/AG COMBO RFLX [id number] 00:00:00 Test Item Value Reference Range Interpretation Comments HIV 1/2 4TH GEN, RFLX CONF (test NON-REACTIVE code = 3514) VITAMIN D, 25 [id number] 00:00:00 Test Item Value Reference Range Interpretation Comments VITAMIN D, 25 [place] (test code = 4958) 18 NG/ML VITAMIN D, 25 [id number] 00:00:00 Test Item Value Reference Range Interpretation Comments VITAMIN D, 25 [place] (test code = 4958) 18 NG/ML MICROALBUMIN, [id number] 00:00:00 Test Item Value Reference Range Interpretation Comments ALBUMIN, URINE, RANDOM (test code 10.2 MG/DL = 96668) MICROALBUMIN, [id number] 00:00:00 Test Item Value Reference Range Interpretation Comments ALBUMIN, URINE, RANDOM (test code 10.2 MG/DL = 69359) HIV AB/AG COMBO RFLX [id number] 00:00:00 Test Item Value Reference Range Interpretation Comments HIV 1/2 4TH GEN, RFLX CONF (test NON-REACTIVE code = 3514) HIV AB/AG COMBO RFLX [id number] 00:00:00 Test Item Value Reference Range Interpretation Comments HIV 1/2 4TH GEN, RFLX CONF (test NON-REACTIVE code = 3514) VITAMIN D, 25 [id number] 00:00:00 Test Item Value Reference Range Interpretation Comments VITAMIN D, 25 [place] (test code = 4958) 18 NG/ML VITAMIN D, 25 [id number] 00:00:00 Test Item Value Reference Range Interpretation Comments VITAMIN D, 25 [place] (test code = 4958) 18 NG/ML MICROALBUMIN, [id number] 00:00:00 Test Item Value Reference Range Interpretation Comments ALBUMIN, URINE, RANDOM (test code 10.2 MG/DL = 14413) MICROALBUMIN, [id number] 00:00:00 Test Item Value Reference Range Interpretation Comments ALBUMIN, URINE, RANDOM (test code 10.2 MG/DL = 69396) HIV AB/AG COMBO RFLX [id number] 00:00:00 Test Item Value Reference Range Interpretation Comments HIV 1/2 4TH GEN, RFLX CONF (test NON-REACTIVE code = 3514) HIV AB/AG COMBO RFLX [id number] 00:00:00 Test Item Value Reference Range Interpretation Comments HIV 1/2 4TH GEN, RFLX CONF (test NON-REACTIVE code = 3514) VITAMIN D, 25 [id number] 00:00:00 Test Item Value Reference Range Interpretation Comments VITAMIN D, 25 [place] (test code = 4958) 18 NG/ML VITAMIN D, 25 [id number] 00:00:00 Test Item Value Reference Range Interpretation Comments VITAMIN D, 25 [place] (test code = 4958) 18 NG/ML MICROALBUMIN, [id number] 00:00:00 Test Item Value Reference Range Interpretation Comments ALBUMIN, URINE, RANDOM (test code 10.2 MG/DL = 89805) MICROALBUMIN, [id number] 00:00:00 Test Item Value Reference Range Interpretation Comments ALBUMIN, URINE, RANDOM (test code 10.2 MG/DL = 81167) HIV AB/AG COMBO RFLX [id number] 00:00:00 Test Item Value Reference Range Interpretation Comments HIV 1/2 4TH GEN, RFLX CONF (test NON-REACTIVE code = 3514) HIV AB/AG COMBO RFLX [id number] 00:00:00 Test Item Value Reference Range Interpretation Comments HIV 1/2 4TH GEN, RFLX CONF (test NON-REACTIVE code = 3514) VITAMIN D, 25 [id number] 00:00:00 Test Item Value Reference Range Interpretation Comments VITAMIN D, 25 [place] (test code = 4958) 18 NG/ML VITAMIN D, 25 [id number] 00:00:00 Test Item Value Reference Range Interpretation Comments VITAMIN D, 25 [place] (test code = 4958) 18 NG/ML MICROALBUMIN, [id number] 00:00:00 Test Item Value Reference Range Interpretation Comments ALBUMIN, URINE, RANDOM (test code 10.2 MG/DL = 48878) MICROALBUMIN, [id number] 00:00:00 Test Item Value Reference Range Interpretation Comments ALBUMIN, URINE, RANDOM (test code 10.2 MG/DL = 59079) HIV AB/AG COMBO RFLX [id number] 00:00:00 Test Item Value Reference Range Interpretation Comments HIV 1/2 4TH GEN, RFLX CONF (test NON-REACTIVE code = 3514) HIV AB/AG COMBO RFLX [id number] 00:00:00 Test Item Value Reference Range Interpretation Comments HIV 1/2 4TH GEN, RFLX CONF (test NON-REACTIVE code = 3514) VITAMIN D, 25 [id number] 00:00:00 Test Item Value Reference Range Interpretation Comments VITAMIN D, 25 [place] (test code = 4958) 18 NG/ML VITAMIN D, 25 [id number] 00:00:00 Test Item Value Reference Range Interpretation Comments VITAMIN D, 25 [place] (test code = 4958) 18 NG/ML MICROALBUMIN, [id number] 00:00:00 Test Item Value Reference Range Interpretation Comments ALBUMIN, URINE, RANDOM (test code 10.2 MG/DL = 59017) MICROALBUMIN, [id number] 00:00:00 Test Item Value Reference Range Interpretation Comments ALBUMIN, URINE, RANDOM (test code 10.2 MG/DL = 32201) HIV AB/AG COMBO RFLX [id number] 00:00:00 Test Item Value Reference Range Interpretation Comments HIV 1/2 4TH GEN, RFLX CONF (test NON-REACTIVE code = 3514) HIV AB/AG COMBO RFLX [id number] 00:00:00 Test Item Value Reference Range Interpretation Comments HIV 1/2 4TH GEN, RFLX CONF (test NON-REACTIVE code = 3514) VITAMIN D, 25 [id number] 00:00:00 Test Item Value Reference Range Interpretation Comments VITAMIN D, 25 OH (test code = 4958) 18 NG/ML VITAMIN D, 25 [id number] 00:00:00 Test Item Value Reference Range Interpretation Comments VITAMIN D, 25 OH (test code = 4958) 18 NG/ML MICROALBUMIN, [id number] 00:00:00 Test Item Value Reference Range Interpretation Comments ALBUMIN, URINE, RANDOM (test code 10.2 MG/DL = 61469) HIV AB/AG COMBO RFLX [id number] 00:00:00 Test Item Value Reference Range Interpretation Comments HIV 1/2 4TH GEN, RFLX CONF (test NON-REACTIVE code = 3514) MICROALBUMIN, [id number] 00:00:00 Test Item Value Reference Range Interpretation Comments ALBUMIN, URINE, RANDOM (test code 10.2 MG/DL = 64766) MICROALBUMIN, [id number] 00:00:00 Test Item Value Reference Range Interpretation Comments ALBUMIN, URINE, RANDOM (test code 10.2 MG/DL = 80127) HIV AB/AG COMBO RFLX [id number] 00:00:00 Test Item Value Reference Range Interpretation Comments HIV 1/2 4TH GEN, RFLX CONF (test NON-REACTIVE code = 3514) HIV AB/AG COMBO RFLX [id number] 00:00:00 Test Item Value Reference Range Interpretation Comments HIV 1/2 4TH GEN, RFLX CONF (test NON-REACTIVE code = 3514) VITAMIN D, 25 [id number] 00:00:00 Test Item Value Reference Range Interpretation Comments VITAMIN D, 25 OH (test code = 4958) 18 NG/ML VITAMIN D, 25 [id number] 00:00:00 Test Item Value Reference Range Interpretation Comments VITAMIN D, 25 OH (test code = 4958) 18 NG/ML VITAMIN D, 25 [id number] 00:00:00 Test Item Value Reference Range Interpretation Comments VITAMIN D, 25 OH (test code = 4958) 18 NG/ML MICROALBUMIN, [id number] 00:00:00 Test Item Value Reference Range Interpretation Comments ALBUMIN, URINE, RANDOM (test code 10.2 MG/DL = 54851) MICROALBUMIN, [id number] 00:00:00 Test Item Value Reference Range Interpretation Comments ALBUMIN, URINE, RANDOM (test code 10.2 MG/DL = 51113) HIV AB/AG COMBO RFLX [id number] 00:00:00 Test Item Value Reference Range Interpretation Comments HIV 1/2 4TH GEN, RFLX CONF (test NON-REACTIVE code = 3514) HIV AB/AG COMBO RFLX [id number] 00:00:00 Test Item Value Reference Range Interpretation Comments HIV 1/2 4TH GEN, RFLX CONF (test NON-REACTIVE code = 3514) VITAMIN D, 25 [id number] 00:00:00 Test Item Value Reference Range Interpretation Comments VITAMIN D, 25 OH (test code = 4958) 18 NG/ML VITAMIN D, 25 [id number] 00:00:00 Test Item Value Reference Range Interpretation Comments VITAMIN D, 25 OH (test code = 4958) 18 NG/ML MICROALBUMIN, [id number] 00:00:00 Test Item Value Reference Range Interpretation Comments ALBUMIN, URINE, RANDOM (test code 10.2 MG/DL = 45703) MICROALBUMIN, [id number] 00:00:00 Test Item Value Reference Range Interpretation Comments ALBUMIN, URINE, RANDOM (test code 10.2 MG/DL = 47654) HIV AB/AG COMBO RFLX [id number] 00:00:00 Test Item Value Reference Range Interpretation Comments HIV 1/2 4TH GEN, RFLX CONF (test NON-REACTIVE code = 3514) HIV AB/AG COMBO RFLX [id number] 00:00:00 Test Item Value Reference Range Interpretation Comments HIV 1/2 4TH GEN, RFLX CONF (test NON-REACTIVE code = 3514) VITAMIN D, 25 [id number] 00:00:00 Test Item Value Reference Range Interpretation Comments VITAMIN D, 25 OH (test code = 4958) 18 NG/ML VITAMIN D, 25 [id number] 00:00:00 Test Item Value Reference Range Interpretation Comments VITAMIN D, 25 OH (test code = 4958) 18 NG/ML LIPID [id number] 02:15:07 Test Item Value Reference Range Interpretation [...] CALCULATE (test code = 2238) COMPREHENSIVE METABOLIC [id number] 02:15:07 Test Item Value Reference Range Interpretation Comments GLUCOSE (test code = 349 MG/DL 70-99 H 2216) BUN (test code = 17 MG/DL 6-20 2207) CREATININE (test 0.80 MG/DL 0.60-1.30 code = 2214) eGFR (2020 CKD-EPI) 94 ML/MIN/1.73 >60 (test code = 86009) CALC BUN/CREAT (test 21 RATIO 6-28 code = 2235) SODIUM (test code = 137 MEQ/L 599-999 9983) POTASSIUM (test code 4.2 MEQ/L 3.5-5.4 = 222) CHLORIDE (test code 99 MEQ/L 95-107 = [...] message] (test code = 2206) The [employer] which generated this result transmit faith reference range : <=1.2. The refe rence range was not u sed to interpret th is result as normal/abnormal . ALKALINE PHOSPHATASE 69 U/L 40-113 (test code = 2203) AST (test code = 21 U/L 9-40 2217) ALT (test code = 39 U/L 5-40 2218) LIPID [id number] 00:00:00 Test Item Value Reference Range Interpretation Comments CHOLESTEROL (test code = 2210) 206 MG/DL TRIGLYCERIDES (test code = 2232) 1120 MG/DL HDL CHOLESTEROL (test code = 24 MG/DL 2220) CALC LDL CHOL (test code = 2237) (NOTE) MG/DL RISK RATIO LDL/HDL (test code = (NOTE) RATIO 2238) LIPID [id number] 00:00:00 Test Item Value Reference Range Interpretation Comments CHOLESTEROL (test code = 2210) 206 MG/DL TRIGLYCERIDES (test code = 2232) 1120 MG/DL HDL CHOLESTEROL (test code = 24 MG/DL 2220) CALC LDL CHOL (test code = 2237) (NOTE) MG/DL RISK RATIO LDL/HDL (test code = (NOTE) RATIO 2238) COMPREHENSIVE METABOLIC [id number] 00:00:00 Test Item Value Reference Range Interpretation Comments GLUCOSE (test code = 2217) 349 MG/DL BUN (test code = 2208) 17 MG/DL CREATININE (test code = 2214) 0.80 MG/DL eGFR (2020 CKD-EPI) (test code 94 ML/MIN/1.73 = 94787) CALC BUN/CREAT (test code = 21 RATIO [...] code = 2219) 39 U/L COMPREHENSIVE METABOLIC [id number] 00:00:00 Test Item Value Reference Range Interpretation Comments GLUCOSE (test code = 2217) 349 MG/DL BUN (test code = 2208) 17 MG/DL CREATININE (test code = 2214) 0.80 MG/DL eGFR (2020 CKD-EPI) (test code 94 ML/MIN/1.73 = 67328) CALC BUN/CREAT (test code = 21 RATIO [...] (test code = 2219) 39 U/L LIPID [id number] 00:00:00 Test Item Value Reference Range Interpretation Comments CHOLESTEROL (test code = 2210) 206 MG/DL TRIGLYCERIDES (test code = 2232) 1120 MG/DL HDL CHOLESTEROL (test code = 24 MG/DL 2220) CALC LDL CHOL (test code = 2237) (NOTE) MG/DL RISK RATIO LDL/HDL (test code = (NOTE) RATIO 2238) LIPID [id number] 00:00:00 Test Item Value Reference Range Interpretation Comments CHOLESTEROL (test code = 2210) 206 MG/DL TRIGLYCERIDES (test code = 2232) 1120 MG/DL HDL CHOLESTEROL (test code = 24 MG/DL 2220) CALC LDL CHOL (test code = 2237) (NOTE) MG/DL RISK RATIO LDL/HDL (test code = (NOTE) RATIO 2238) COMPREHENSIVE METABOLIC [id number] 00:00:00 Test Item Value Reference Range Interpretation Comments GLUCOSE (test code = 2217) 349 MG/DL BUN (test code = 2208) 17 MG/DL CREATININE (test code = 2214) 0.80 MG/DL eGFR (2020 CKD-EPI) (test code 94 ML/MIN/1.73 = 61501) CALC BUN/CREAT (test code = 21 RATIO [...] code = 2219) 39 U/L COMPREHENSIVE METABOLIC [id number] 00:00:00 Test Item Value Reference Range Interpretation Comments GLUCOSE (test code = 2217) 349 MG/DL BUN (test code = 2208) 17 MG/DL CREATININE (test code = 2214) 0.80 MG/DL eGFR (2020 CKD-EPI) (test code 94 ML/MIN/1.73 = 76639) CALC BUN/CREAT (test code = 21 RATIO [...] (test code = 2219) 39 U/L LIPID [id number] 00:00:00 Test Item Value Reference Range Interpretation Comments CHOLESTEROL (test code = 2210) 206 MG/DL TRIGLYCERIDES (test code = 2232) 1120 MG/DL HDL CHOLESTEROL (test code = 24 MG/DL 2220) CALC LDL CHOL (test code = 2237) (NOTE) MG/DL RISK RATIO LDL/HDL (test code = (NOTE) RATIO 2238) LIPID [id number] 00:00:00 Test Item Value Reference Range Interpretation Comments CHOLESTEROL (test code = 2210) 206 MG/DL TRIGLYCERIDES (test code = 2232) 1120 MG/DL HDL CHOLESTEROL (test code = 24 MG/DL 2220) CALC LDL CHOL (test code = 2237) (NOTE) MG/DL RISK RATIO LDL/HDL (test code = (NOTE) RATIO 2238) COMPREHENSIVE METABOLIC [id number] 00:00:00 Test Item Value Reference Range Interpretation Comments GLUCOSE (test code = 2217) 349 MG/DL BUN (test code = 2208) 17 MG/DL CREATININE (test code = 2214) 0.80 MG/DL eGFR (2020 CKD-EPI) (test code 94 ML/MIN/1.73 = 49058) CALC BUN/CREAT (test code = 21 RATIO [...] code = 2219) 39 U/L COMPREHENSIVE METABOLIC [id number] 00:00:00 Test Item Value Reference Range Interpretation Comments GLUCOSE (test code = 2217) 349 MG/DL BUN (test code = 2208) 17 MG/DL CREATININE (test code = 2214) 0.80 MG/DL eGFR (2020 CKD-EPI) (test code 94 ML/MIN/1.73 = 35952) CALC BUN/CREAT (test code = 21 RATIO [...] (test code = 2219) 39 U/L LIPID [id number] 00:00:00 Test Item Value Reference Range Interpretation Comments CHOLESTEROL (test code = 2210) 206 MG/DL TRIGLYCERIDES (test code = 2232) 1120 MG/DL HDL CHOLESTEROL (test code = 24 MG/DL 2220) CALC LDL CHOL (test code = 2237) (NOTE) MG/DL RISK RATIO LDL/HDL (test code = (NOTE) RATIO 2238) LIPID [id number] 00:00:00 Test Item Value Reference Range Interpretation Comments CHOLESTEROL (test code = 2210) 206 MG/DL TRIGLYCERIDES (test code = 2232) 1120 MG/DL HDL CHOLESTEROL (test code = 24 MG/DL 2220) CALC LDL CHOL (test code = 2237) (NOTE) MG/DL RISK RATIO LDL/HDL (test code = (NOTE) RATIO 2238) COMPREHENSIVE METABOLIC [id number] 00:00:00 Test Item Value Reference Range Interpretation Comments GLUCOSE (test code = 2217) 349 MG/DL BUN (test code = 2208) 17 MG/DL CREATININE (test code = 2214) 0.80 MG/DL eGFR (2020 CKD-EPI) (test code 94 ML/MIN/1.73 = 08072) CALC BUN/CREAT (test code = 21 RATIO [...] code = 2219) 39 U/L COMPREHENSIVE METABOLIC [id number] 00:00:00 Test Item Value Reference Range Interpretation Comments GLUCOSE (test code = 2217) 349 MG/DL BUN (test code = 2208) 17 MG/DL CREATININE (test code = 2214) 0.80 MG/DL eGFR (2020 CKD-EPI) (test code 94 ML/MIN/1.73 = 44823) CALC BUN/CREAT (test code = 21 RATIO [...] (test code = 2219) 39 U/L LIPID [id number] 00:00:00 Test Item Value Reference Range Interpretation Comments CHOLESTEROL (test code = 2210) 206 MG/DL TRIGLYCERIDES (test code = 2232) 1120 MG/DL HDL CHOLESTEROL (test code = 24 MG/DL 2220) CALC LDL CHOL (test code = 2237) (NOTE) MG/DL RISK RATIO LDL/HDL (test code = (NOTE) RATIO 2238) LIPID [id number] 00:00:00 Test Item Value Reference Range Interpretation Comments CHOLESTEROL (test code = 2210) 206 MG/DL TRIGLYCERIDES (test code = 2232) 1120 MG/DL HDL CHOLESTEROL (test code = 24 MG/DL 2220) CALC LDL CHOL (test code = 2237) (NOTE) MG/DL RISK RATIO LDL/HDL (test code = (NOTE) RATIO 2238) COMPREHENSIVE METABOLIC [id number] 00:00:00 Test Item Value Reference Range Interpretation Comments GLUCOSE (test code = 2217) 349 MG/DL BUN (test code = 2208) 17 MG/DL CREATININE (test code = 2214) 0.80 MG/DL eGFR (2020 CKD-EPI) (test code 94 ML/MIN/1.73 = 76356) CALC BUN/CREAT (test code = 21 RATIO [...] code = 2219) 39 U/L COMPREHENSIVE METABOLIC [id number] 00:00:00 Test Item Value Reference Range Interpretation Comments GLUCOSE (test code = 2217) 349 MG/DL BUN (test code = 2208) 17 MG/DL CREATININE (test code = 2214) 0.80 MG/DL eGFR (2020 CKD-EPI) (test code 94 ML/MIN/1.73 = 81506) CALC BUN/CREAT (test code = 21 RATIO [...] (test code = 2219) 39 U/L LIPID [id number] 00:00:00 Test Item Value Reference Range Interpretation Comments CHOLESTEROL (test code = 2210) 206 MG/DL TRIGLYCERIDES (test code = 2232) 1120 MG/DL HDL CHOLESTEROL (test code = 24 MG/DL 2220) CALC LDL CHOL (test code = 2237) (NOTE) MG/DL RISK RATIO LDL/HDL (test code = (NOTE) RATIO 2238) LIPID [id number] 00:00:00 Test Item Value Reference Range Interpretation Comments CHOLESTEROL (test code = 2210) 206 MG/DL TRIGLYCERIDES (test code = 2232) 1120 MG/DL HDL CHOLESTEROL (test code = 24 MG/DL 2220) CALC LDL CHOL (test code = 2237) (NOTE) MG/DL RISK RATIO LDL/HDL (test code = (NOTE) RATIO 2238) COMPREHENSIVE METABOLIC [id number] 00:00:00 Test Item Value Reference Range Interpretation Comments GLUCOSE (test code = 2217) 349 MG/DL BUN (test code = 2208) 17 MG/DL CREATININE (test code = 2214) 0.80 MG/DL eGFR (2020 CKD-EPI) (test code 94 ML/MIN/1.73 = 53284) CALC BUN/CREAT (test code = 21 RATIO [...] code = 2219) 39 U/L COMPREHENSIVE METABOLIC [id number] 00:00:00 Test Item Value Reference Range Interpretation Comments GLUCOSE (test code = 2217) 349 MG/DL BUN (test code = 2208) 17 MG/DL CREATININE (test code = 2214) 0.80 MG/DL eGFR (2020 CKD-EPI) (test code 94 ML/MIN/1.73 = 34468) CALC BUN/CREAT (test code = 21 RATIO [...] (test code = 2219) 39 U/L LIPID [id number] 00:00:00 Test Item Value Reference Range Interpretation Comments CHOLESTEROL (test code = 2210) 206 MG/DL TRIGLYCERIDES (test code = 2232) 1120 MG/DL HDL CHOLESTEROL (test code = 24 MG/DL 2220) CALC LDL CHOL (test code = 2237) (NOTE) MG/DL RISK RATIO LDL/HDL (test code = (NOTE) RATIO 2238) LIPID [id number] 00:00:00 Test Item Value Reference Range Interpretation Comments CHOLESTEROL (test code = 2210) 206 MG/DL TRIGLYCERIDES (test code = 2232) 1120 MG/DL HDL CHOLESTEROL (test code = 24 MG/DL 2220) CALC LDL CHOL (test code = 2237) (NOTE) MG/DL RISK RATIO LDL/HDL (test code = (NOTE) RATIO 2238) COMPREHENSIVE METABOLIC [id number] 00:00:00 Test Item Value Reference Range Interpretation Comments GLUCOSE (test code = 2217) 349 MG/DL BUN (test code = 2208) 17 MG/DL CREATININE (test code = 2214) 0.80 MG/DL eGFR (2020 CKD-EPI) (test code 94 ML/MIN/1.73 = 65507) CALC BUN/CREAT (test code = 21 RATIO [...] code = 2219) 39 U/L COMPREHENSIVE METABOLIC [id number] 00:00:00 Test Item Value Reference Range Interpretation Comments GLUCOSE (test code = 2217) 349 MG/DL BUN (test code = 2208) 17 MG/DL CREATININE (test code = 2214) 0.80 MG/DL eGFR (2020 CKD-EPI) (test code 94 ML/MIN/1.73 = 77392) CALC BUN/CREAT (test code = 21 RATIO [...] (test code = 2219) 39 U/L LIPID [id number] 00:00:00 Test Item Value Reference Range Interpretation Comments CHOLESTEROL (test code = 2210) 206 MG/DL TRIGLYCERIDES (test code = 2232) 1120 MG/DL HDL CHOLESTEROL (test code = 24 MG/DL 2220) CALC LDL CHOL (test code = 2237) (NOTE) MG/DL RISK RATIO LDL/HDL (test code = (NOTE) RATIO 2238) COMPREHENSIVE METABOLIC [id number] 00:00:00 Test Item Value Reference Range Interpretation Comments GLUCOSE (test code = 2217) 349 MG/DL BUN (test code = 2208) 17 MG/DL CREATININE (test code = 2214) 0.80 MG/DL eGFR (2020 CKD-EPI) (test code 94 ML/MIN/1.73 = 72203) CALC BUN/CREAT (test code = 21 RATIO [...] (test code = 2219) 39 U/L LIPID [id number] 00:00:00 Test Item Value Reference Range Interpretation Comments CHOLESTEROL (test code = 2210) 206 MG/DL TRIGLYCERIDES (test code = 2232) 1120 MG/DL HDL CHOLESTEROL (test code = 24 MG/DL 2220) CALC LDL CHOL (test code = 2237) (NOTE) MG/DL RISK RATIO LDL/HDL (test code = (NOTE) RATIO 2238) LIPID [id number] 00:00:00 Test Item Value Reference Range Interpretation Comments CHOLESTEROL (test code = 2210) 206 MG/DL TRIGLYCERIDES (test code = 2232) 1120 MG/DL HDL CHOLESTEROL (test code = 24 MG/DL 2220) CALC LDL CHOL (test code = 2237) (NOTE) MG/DL RISK RATIO LDL/HDL (test code = (NOTE) RATIO 2238) COMPREHENSIVE METABOLIC [id number] 00:00:00 Test Item Value Reference Range Interpretation Comments GLUCOSE (test code = 2217) 349 MG/DL BUN (test code = 2208) 17 MG/DL CREATININE (test code = 2214) 0.80 MG/DL eGFR (2020 CKD-EPI) (test code 94 ML/MIN/1.73 = 53263) CALC BUN/CREAT (test code = 21 RATIO [...] code = 2219) 39 U/L COMPREHENSIVE METABOLIC [id number] 00:00:00 Test Item Value Reference Range Interpretation Comments GLUCOSE (test code = 2217) 349 MG/DL BUN (test code = 2208) 17 MG/DL CREATININE (test code = 2214) 0.80 MG/DL eGFR (2020 CKD-EPI) (test code 94 ML/MIN/1.73 = 77000) CALC BUN/CREAT (test code [...] (test code = 2219) 39 U/L LIPID [id number] 00:00:00 Test Item Value Reference Range Interpretation Comments CHOLESTEROL (test code = 2210) 206 MG/DL TRIGLYCERIDES (test code = 2232) 1120 MG/DL HDL CHOLESTEROL (test code = 24 MG/DL 2220) CALC LDL CHOL (test code = 2237) (NOTE) MG/DL RISK RATIO LDL/HDL (test code = (NOTE) RATIO 2238) LIPID [id number] 00:00:00 Test Item Value Reference Range Interpretation Comments CHOLESTEROL (test code = 2210) 206 MG/DL TRIGLYCERIDES (test code = 2232) 1120 MG/DL HDL CHOLESTEROL (test code = 24 MG/DL 2220) CALC LDL CHOL (test code = 2237) (NOTE) MG/DL RISK RATIO LDL/HDL (test code = (NOTE) RATIO 2238) COMPREHENSIVE METABOLIC [id number] 00:00:00 Test Item Value Reference Range Interpretation Comments GLUCOSE (test code = 2217) 349 MG/DL BUN (test code = 2208) 17 MG/DL CREATININE (test code = 2214) 0.80 MG/DL eGFR (2020 CKD-EPI) (test code 94 ML/MIN/1.73 = 58678) CALC BUN/CREAT (test code = 21 RATIO [...] code = 2219) 39 U/L COMPREHENSIVE METABOLIC [id number] 00:00:00 Test Item Value Reference Range Interpretation Comments GLUCOSE (test code = 2217) 349 MG/DL BUN (test code = 2208) 17 MG/DL CREATININE (test code = 2214) 0.80 MG/DL eGFR (2020 CKD-EPI) (test code 94 ML/MIN/1.73 = 50197) CALC BUN/CREAT (test code = 21 RATIO [...] (test code = 2219) 39 U/L LIPID [id number] 00:00:00 Test Item Value Reference Range Interpretation Comments CHOLESTEROL (test code = 2210) 206 MG/DL TRIGLYCERIDES (test code = 2232) 1120 MG/DL HDL CHOLESTEROL (test code = 24 MG/DL 2220) CALC LDL CHOL (test code = 2237) (NOTE) MG/DL RISK RATIO LDL/HDL (test code = (NOTE) RATIO 2238) LIPID [id number] 00:00:00 Test Item Value Reference Range Interpretation Comments CHOLESTEROL (test code = 2210) 206 MG/DL TRIGLYCERIDES (test code = 2232) 1120 MG/DL HDL CHOLESTEROL (test code = 24 MG/DL 2220) CALC LDL CHOL (test code = 2237) (NOTE) MG/DL RISK RATIO LDL/HDL (test code = (NOTE) RATIO 2238) COMPREHENSIVE METABOLIC [id number] 00:00:00 Test Item Value Reference Range Interpretation Comments GLUCOSE (test code = 2217) 349 MG/DL BUN (test code = 2208) 17 MG/DL CREATININE (test code = 2214) 0.80 MG/DL eGFR (2020 CKD-EPI) (test code 94 ML/MIN/1.73 = 28717) CALC BUN/CREAT (test code = 21 RATIO [...] code = 2219) 39 U/L COMPREHENSIVE METABOLIC [id number] 00:00:00 Test Item Value Reference Range Interpretation Comments GLUCOSE (test code = 2217) 349 MG/DL BUN (test code = 2208) 17 MG/DL CREATININE (test code = 2214) 0.80 MG/DL eGFR (2020 CKD-EPI) (test code 94 ML/MIN/1.73 = 95784) CALC BUN/CREAT (test code = 21 RATIO [...] (test code = 2219) 39 U/L HEMOGLOBIN [id number] 04:43:57 Test Item Value Reference Range Interpretation Comments HEMOGLOBIN A1c (test 11.5 % 4.2-5.6 H [employer] code = 83970) ASSOCIATION [employer] FOR HGB A1C: PREDIABETES/INC REASED [...] ATE TESTING OR LABORATORY C ONSULTATION. HEMOGLOBIN [id number] 00:00:00 Test Item Value Reference Range Interpretation Comments HEMOGLOBIN A1c (test code = 85315) 11.5 % HEMOGLOBIN [id number] 00:00:00 Test Item Value Reference Range Interpretation Comments HEMOGLOBIN A1c (test code = 81689) 11.5 % HEMOGLOBIN [id number] 00:00:00 Test Item Value Reference Range Interpretation Comments HEMOGLOBIN A1c (test code = 04453) 11.5 % HEMOGLOBIN [id number] 00:00:00 Test Item Value Reference Range Interpretation Comments HEMOGLOBIN A1c (test code = 33697) 11.5 % HEMOGLOBIN [id number] 00:00:00 Test Item Value Reference Range Interpretation Comments HEMOGLOBIN A1c (test code = 89885) 11.5 % HEMOGLOBIN [id number] 00:00:00 Test Item Value Reference Range Interpretation Comments HEMOGLOBIN A1c (test code = 00788) 11.5 % HEMOGLOBIN [id number] 00:00:00 Test Item Value Reference Range Interpretation Comments HEMOGLOBIN A1c (test code = 54248) 11.5 % HEMOGLOBIN [id number] 00:00:00 Test Item Value Reference Range Interpretation Comments HEMOGLOBIN A1c (test code = 49727) 11.5 % HEMOGLOBIN [id number] 00:00:00 Test Item Value Reference Range Interpretation Comments HEMOGLOBIN A1c (test code = 32537) 11.5 % HEMOGLOBIN [id number] 00:00:00 Test Item Value Reference Range Interpretation Comments HEMOGLOBIN A1c (test code = 74247) 11.5 % HEMOGLOBIN [id number] 00:00:00 Test Item Value Reference Range Interpretation Comments HEMOGLOBIN A1c (test code = 54779) 11.5 % HEMOGLOBIN [id number] 00:00:00 Test Item Value Reference Range Interpretation Comments HEMOGLOBIN A1c (test code = 50645) 11.5 % HEMOGLOBIN [id number] 00:00:00 Test Item Value Reference Range Interpretation Comments HEMOGLOBIN A1c (test code = 69930) 11.5 % HEMOGLOBIN [id number] 00:00:00 Test Item Value Reference Range Interpretation Comments HEMOGLOBIN A1c (test code = 07840) 11.5 % HEMOGLOBIN [id number] 00:00:00 Test Item Value Reference Range Interpretation Comments HEMOGLOBIN A1c (test code = 16458) 11.5 % HEMOGLOBIN [id number] 00:00:00 Test Item Value Reference Range Interpretation Comments HEMOGLOBIN A1c (test code = 24063) 11.5 % HEMOGLOBIN [id number] 00:00:00 Test Item Value Reference Range Interpretation Comments HEMOGLOBIN A1c (test code = 35214) 11.5 % HEMOGLOBIN [id number] 00:00:00 Test Item Value Reference Range Interpretation Comments HEMOGLOBIN A1c (test code = 46621) 11.5 % HEMOGLOBIN [id number] 00:00:00 Test Item Value Reference Range Interpretation Comments HEMOGLOBIN A1c (test code = 46569) 11.5 % HEMOGLOBIN [id number] 00:00:00 Test Item Value Reference Range Interpretation Comments HEMOGLOBIN A1c (test code = 86136) 11.5 % HEMOGLOBIN [id number] 00:00:00 Test Item Value Reference Range Interpretation Comments HEMOGLOBIN A1c (test code = 76204) 11.5 % HEMOGLOBIN [id number] 00:00:00 Test Item Value Reference Range Interpretation Comments HEMOGLOBIN A1c (test code = 46062) 11.5 % HEMOGLOBIN [id number] 00:00:00 Test Item Value Reference Range Interpretation Comments HEMOGLOBIN A1c (test code = 43986) 11.5 % HEMOGLOBIN [id number] 00:00:00 Test Item Value Reference Range Interpretation Comments HEMOGLOBIN A1c (test code = 34774) 11.5 % HEMOGLOBIN [id number] 00:00:00 Test Item Value Reference Range Interpretation Comments HEMOGLOBIN A1c (test code = 19867) 11.5 % HEMOGLOBIN [id number] 00:00:00 Test Item Value Reference Range Interpretation Comments HEMOGLOBIN A1c (test code = 03782) 11.5 % HEMOGLOBIN [id number] 00:00:00 Test Item Value Reference Range Interpretation Comments HEMOGLOBIN A1c (test code = 42317) 11.5 % HEMOGLOBIN [id number] 00:00:00 Test Item Value Reference Range Interpretation Comments HEMOGLOBIN A1c (test code = 37717) 11.5 % HEMOGLOBIN [id number] 00:00:00 Test Item Value Reference Range Interpretation Comments HEMOGLOBIN A1c (test code = 84107) 11.5 % HEMOGLOBIN [id number] 00:00:00 Test Item Value Reference Range Interpretation Comments HEMOGLOBIN A1c (test code = 45198) 11.5 % HEMOGLOBIN [id number] 00:00:00 Test Item Value Reference Range Interpretation Comments HEMOGLOBIN A1c (test code = 75381) 11.5 % HEMOGLOBIN [id number] 00:00:00 Test Item Value Reference Range Interpretation Comments HEMOGLOBIN A1c (test code = 84330) 11.5 % CULTURE, [id number] 11:34:56SPECIMEN NUMBER: [id number] CULTURE, URINE SPECIMEN NUMBER: [id number] SPECIMEN COMMENT: URINE SOURCE:URINE REPORT STATUS: FINAL FINAL REPORT: 10/25/2021 10-50,000 CFU/ML UROGENITAL NORMA PRESENT NO COMM ON PATHOGENSCULTURE, [id number] 00:00:00 Test Item Value Reference Range Interpretation Comments CULTURE, URINE (test SPECIMEN NUMBER: code = 34136) [id number] CULTURE, [id number] 00:00:00 Test Item Value Reference Range Interpretation Comments CULTURE, URINE (test SPECIMEN NUMBER: code = 90745) [id number] CULTURE, [id number] 00:00:00 Test Item Value Reference Range Interpretation Comments CULTURE, URINE (test SPECIMEN NUMBER: code = 34744) [id number] CULTURE, [id number] 00:00:00 Test Item Value Reference Range Interpretation Comments CULTURE, URINE (test SPECIMEN NUMBER: code = 17198) [id number] CULTURE, [id number] 00:00:00 Test Item Value Reference Range Interpretation Comments CULTURE, URINE (test SPECIMEN NUMBER: code = 56877) [id number] CULTURE, [id number] 00:00:00 Test Item Value Reference Range Interpretation Comments CULTURE, URINE (test SPECIMEN NUMBER: code = 03117) [id number] CULTURE, [id number] 00:00:00 Test Item Value Reference Range Interpretation Comments CULTURE, URINE (test SPECIMEN NUMBER: code = 49810) [id number] CULTURE, [id number] 00:00:00 Test Item Value Reference Range Interpretation Comments CULTURE, URINE (test SPECIMEN NUMBER: code = 14237) [id number] CULTURE, [id number] 00:00:00 Test Item Value Reference Range Interpretation Comments CULTURE, URINE (test SPECIMEN NUMBER: code = 84016) [id number] CULTURE, [id number] 00:00:00 Test Item Value Reference Range Interpretation Comments CULTURE, URINE (test SPECIMEN NUMBER: code = 69354) [id number] CULTURE, [id number] 00:00:00 Test Item Value Reference Range Interpretation Comments CULTURE, URINE (test SPECIMEN NUMBER: code = 53483) [id number] CULTURE, [id number] 00:00:00 Test Item Value Reference Range Interpretation Comments CULTURE, URINE (test SPECIMEN NUMBER: code = 74514) [id number] CULTURE, [id number] 00:00:00 Test Item Value Reference Range Interpretation Comments CULTURE, URINE (test SPECIMEN NUMBER: code = 86989) [id number] CULTURE, [id number] 00:00:00 Test Item Value Reference Range Interpretation Comments CULTURE, URINE (test SPECIMEN NUMBER: code = 04531) [id number] CULTURE, [id number] 00:00:00 Test Item Value Reference Range Interpretation Comments CULTURE, URINE (test SPECIMEN NUMBER: code = 19536) [id number] CULTURE, [id number] 00:00:00 Test Item Value Reference Range Interpretation Comments CULTURE, URINE (test SPECIMEN NUMBER: code = 71394) [id number] CULTURE, [id number] 00:00:00 Test Item Value Reference Range Interpretation Comments CULTURE, URINE (test SPECIMEN NUMBER: code = 47943) [id number] CULTURE, [id number] 00:00:00 Test Item Value Reference Range Interpretation Comments CULTURE, URINE (test SPECIMEN NUMBER: code = 09064) [id number] CULTURE, [id number] 00:00:00 Test Item Value Reference Range Interpretation Comments CULTURE, URINE (test SPECIMEN NUMBER: code = 24135) [id number] CULTURE, [id number] 00:00:00 Test Item Value Reference Range Interpretation Comments CULTURE, URINE (test SPECIMEN NUMBER: code = 99117) [id number] CULTURE, [id number] 00:00:00 Test Item Value Reference Range Interpretation Comments CULTURE, URINE (test SPECIMEN NUMBER: code = 73403) [id number] VAGINAL PATHOGENS DNA [id number] 11:55:20 Test Item Value Reference Range Interpretation Comments ANDIE SPECIES (test NEGATIVE NEGATIVE code = 75692) G. VAGINALIS (test NEGATIVE NEGATIVE code = 92530) T. VAGINALIS (test NEGATIVE NEGATIVE UNLESS O THERWISE code = 86668) INDICATED, ALL TESTING PERFORMED [facility]. [address] [place] [address] LABORATORY DIRE CTOR: NOAH TODD M.D. CLIA NUMBER [id number] [facility] [place] [id number] VAGINAL PATHOGENS DNA [id number] 00:00:00 Test Item Value Reference Range Interpretation Comments ANDIE SPECIES (test code = 37002) NEGATIVE G. VAGINALIS (test code = 92034) NEGATIVE T. VAGINALIS (test code = 40436) NEGATIVE VAGINAL PATHOGENS DNA [id number] 00:00:00 Test Item Value Reference Range Interpretation Comments ANDIE SPECIES (test code = 35068) NEGATIVE G. VAGINALIS (test code = 82263) NEGATIVE T. VAGINALIS (test code = 18878) NEGATIVE VAGINAL PATHOGENS DNA [id number] 00:00:00 Test Item Value Reference Range Interpretation Comments ANDIE SPECIES (test code = 40573) NEGATIVE G. VAGINALIS (test code = 20817) NEGATIVE T. VAGINALIS (test code = 73546) NEGATIVE VAGINAL PATHOGENS DNA [id number] 00:00:00 Test Item Value Reference Range Interpretation Comments ANDIE SPECIES (test code = 52709) NEGATIVE G. VAGINALIS (test code = 71742) NEGATIVE T. VAGINALIS (test code = 24145) NEGATIVE VAGINAL PATHOGENS DNA [id number] 00:00:00 Test Item Value Reference Range Interpretation Comments ANDIE SPECIES (test code = 37892) NEGATIVE G. VAGINALIS (test code = 26731) NEGATIVE T. VAGINALIS (test code = 90333) NEGATIVE VAGINAL PATHOGENS DNA [id number] 00:00:00 Test Item Value Reference Range Interpretation Comments ANDIE SPECIES (test code = 02027) NEGATIVE G. VAGINALIS (test code = 02336) NEGATIVE T. VAGINALIS (test code = 15984) NEGATIVE VAGINAL PATHOGENS DNA [id number] 00:00:00 Test Item Value Reference Range Interpretation Comments ANDIE SPECIES (test code = 63264) NEGATIVE G. VAGINALIS (test code = 57369) NEGATIVE T. VAGINALIS (test code = 17674) NEGATIVE VAGINAL PATHOGENS DNA [id number] 00:00:00 Test Item Value Reference Range Interpretation Comments ANDIE SPECIES (test code = 03724) NEGATIVE G. VAGINALIS (test code = 32340) NEGATIVE T. VAGINALIS (test code = 63805) NEGATIVE VAGINAL PATHOGENS DNA [id number] 00:00:00 Test Item Value Reference Range Interpretation Comments ANDIE SPECIES (test code = 99572) NEGATIVE G. VAGINALIS (test code = 68942) NEGATIVE T. VAGINALIS (test code = 06368) NEGATIVE VAGINAL PATHOGENS DNA [id number] 00:00:00 Test Item Value Reference Range Interpretation Comments ANDIE SPECIES (test code = 28445) NEGATIVE G. VAGINALIS (test code = 78356) NEGATIVE T. VAGINALIS (test code = 65672) NEGATIVE VAGINAL PATHOGENS DNA [id number] 00:00:00 Test Item Value Reference Range Interpretation Comments ANDIE SPECIES (test code = 02559) NEGATIVE G. VAGINALIS (test code = 85883) NEGATIVE T. VAGINALIS (test code = 99773) NEGATIVE VAGINAL PATHOGENS DNA [id number] 00:00:00 Test Item Value Reference Range Interpretation Comments ANDIE SPECIES (test code = 12662) NEGATIVE G. VAGINALIS (test code = 43271) NEGATIVE T. VAGINALIS (test code = 67880) NEGATIVE VAGINAL PATHOGENS DNA [id number] 00:00:00 Test Item Value Reference Range Interpretation Comments ANDIE SPECIES (test code = 99373) NEGATIVE G. VAGINALIS (test code = 79990) NEGATIVE T. VAGINALIS (test code = 59201) NEGATIVE VAGINAL PATHOGENS DNA [id number] 00:00:00 Test Item Value Reference Range Interpretation Comments ANDIE SPECIES (test code = 55581) NEGATIVE G. VAGINALIS (test code = 47535) NEGATIVE T. VAGINALIS (test code = 24958) NEGATIVE VAGINAL PATHOGENS DNA [id number] 00:00:00 Test Item Value Reference Range Interpretation Comments ANDIE SPECIES (test code = 32935) NEGATIVE G. VAGINALIS (test code = 26960) NEGATIVE T. VAGINALIS (test code = 95807) NEGATIVE VAGINAL PATHOGENS DNA [id number] 00:00:00 Test Item Value Reference Range Interpretation Comments ANDIE SPECIES (test code = 58017) NEGATIVE G. VAGINALIS (test code = 95271) NEGATIVE T. VAGINALIS (test code = 55374) NEGATIVE VAGINAL PATHOGENS DNA [id number] 00:00:00 Test Item Value Reference Range Interpretation Comments ANDIE SPECIES (test code = 47345) NEGATIVE G. VAGINALIS (test code = 52717) NEGATIVE T. VAGINALIS (test code = 24412) NEGATIVE VAGINAL PATHOGENS DNA [id number] 00:00:00 Test Item Value Reference Range Interpretation Comments ANDIE SPECIES (test code = 33595) NEGATIVE G. VAGINALIS (test code = 82185) NEGATIVE T. VAGINALIS (test code = 77194) NEGATIVE VAGINAL PATHOGENS DNA [id number] 00:00:00 Test Item Value Reference Range Interpretation Comments ANDIE SPECIES (test code = 62893) NEGATIVE G. VAGINALIS (test code = 88257) NEGATIVE T. VAGINALIS (test code = 52674) NEGATIVE VAGINAL PATHOGENS DNA [id number] 00:00:00 Test Item Value Reference Range Interpretation Comments ANDIE SPECIES (test code = 64731) NEGATIVE G. VAGINALIS (test code = 12565) NEGATIVE T. VAGINALIS (test code = 85121) NEGATIVE VAGINAL PATHOGENS DNA [id number] 00:00:00 Test Item Value Reference Range Interpretation Comments ANDIE SPECIES (test code = 04300) NEGATIVE G. VAGINALIS (test code = 57642) NEGATIVE T. VAGINALIS (test code = 96649) NEGATIVE POCT GLUCOSE (AUTOMATED)2021-10-17 01:51:54 Test Item Value Reference Range Interpretation Comments POCT GLU (test code = 1829565000) 365 mg/dL 70-110 H Lab Interpretation (test code = Abnormal 53846-7) [facility] GLUCOSE (AUTOMATED)2021-10-17 00:46:51 Test Item Value Reference Range Interpretation Comments POCT GLU (test code = 7273725485) 435 mg/dL 70-110 H Lab Interpretation (test code = Abnormal 06453-5) [facility] >30DAYS[facility]2021-10-17 00:41:00 Test Item Value Reference Range Interpretation Comments POCT Glu (age>30days) (test code = 435 mg/dL 70-110 A 3342) Lab Interpretation (test code = Abnormal 12111-5) [facility] [id number] 23:40:42 Test Item Value Reference Interpretation Comments Range TROPONIN I (test 0.001 ng/mL See_Comment [Automated code = 6828451561) message] The system which generated this result [...] biotin. Lab Interpretation Normal (test code = 64429-9) [facility] [id number] 23:37:40 Test Item Value Reference Range Interpretation Comments NT-proBNP (test code 20 pg/mL See_Comment [Autom ated = 5569652294) message] The system which generated this result transmitted reference range : <=125. The reference range was not used to interpret this result as normal/abnormal . CALVIN (test code = CALVIN) Biotin has been reported to cause a negative bias, interpret results relative to patient's use of biotin. Lab Interpretation Normal (test code = 16122-3) [facility] (15757)2021-10-16 23:29:18 Test Item Value Reference Range Interpretation Comments NA (test code = 134 mmol/L 135-145 L 5566950088) K (test code = 4.4 mmol/L 3.5-5.0 8963550183) CL (test code = 97 mmol/L 98-108 L 9104699260) CO2 TOTAL (test code = 23 mmol/L 23-31 5367675163) AGAP (test code = 2-16 2144814116) BUN (test code = 21 mg/dL 7-23 6869372636) GLUCOSE (test code = 431 mg/dL 70-110 H 3303466256) CREATININE (test code = 0.88 mg/dL 0.50-1.04 3171725020) TOTAL BILI (test code = 0.5 mg/dL 0.1-1.9 8143058319) CALCIUM (test code = 9.2 mg/dL 8.6-10.6 0842955397) T PROTEIN (test code = 7.4 g/dL 6.3-8.2 1861107847) ALBUMIN (test code = 4.7 g/dL 3.5-5.0 0688679972) ALK PHOS (test code = 52 U/L 34-122 5156863535) ALTv (test code = 30 U/L 5-35 1742-6) AST(SGOT) (test code = 25 U/L 13-40 4128460383) eGFR (test code = mL/min/1.73m2 8847196334) CALVIN (test code = CALVIN) Association of [...] tests). Lab Interpretation Abnormal (test code = 00009-4) [facility] WITH [id number] 23:20:10 Test Item Value Reference Range Interpretation [...] RDW-SD (test code = 40.5 fL 39.0-49.9 89186-0) RDW-CV (test code = 13.5 % 12.0-15.5 788-0) PLT (test code = See_Comment [Automated 777-3) message] The sy stem which generated this result transmitted reference range : 166 - 358 10*3/ ?L. The reference r doretha was not used to interpret this result as normal/abnormal . MPV (test code = 9.6 fL 9.5-12.9 68879-2) NRBC/100 WBC (test See_Comment [Automat ed code = 9250264688) message] The system which generated this result transmitted reference range : 0.0 - 10.0 /100 WBCs. The refer ence range was not u sed to interpret th is result as normal/abnormal . NRBC x10^3 (test code <0.01 See_Comment [Auto mated = 6131023097) message] The s ystem which generated this result transmitted reference range : 10*3/?L. The reference range was not used to interpret this result as normal/abnormal . GRAN MAT (NEUT) % 43.2 % (test code = 770-8) IMM GRAN % (test code 0.70 % = 9109877167) LYMPH % (test code = 42.8 % 736-9) MONO % (test code = 9.2 % 5905-5) EOS % (test code = 3.0 % 713-8) BASO % (test code = 1.1 % 706-2) GRAN MAT x10^3(ANC) 3.15 10*3/uL 1.88-7.09 (test code = 2657839150) IMM GRAN x10^3 (test 0.05 10*3/uL 0.00-0.06 code = 8172389184) LYMPH x10^3 (test code 3.12 10*3/uL 1.32-3.29 = 731-0) MONO x10^3 (test code 0.67 10*3/uL 0.33-0.92 = 742-7) EOS x10^3 (test code = 0.22 10*3/uL 0.03-0.39 711-2) BASO x10^3 (test code 0.08 10*3/uL 0.01-0.07 H = 704-7) Lab Interpretation Abnormal (test code = 14729-5) [facility] [id number] 23:09:32 Test Item Value Reference Range Interpretation Comments LACTIC ACID (test code = 1.94 mmol/L 0.50-2.20 5666329814) Lab Interpretation (test code = Normal 77922-6) [facility] [id number] 22:34:00 Test Item Value Reference Range Interpretation Comments POCT PREG (test code = 1605) Negative On board controls acceptable with Present C Line (test code = 3574) POCT PREG LOT # (test code = 3575) [id number] POCT PREG TEST DATE (test 2023-04-09 code = 3576) Lab Interpretation (test code = Normal 95087-1) [facility], [id number] 08:52:36SPECIMEN NUMBER: [id number] CULTURE, URINE SPECIMEN NUMBER: [id number] SPECIMEN COMMENT: URINE SOURCE:URINE REPORT STATUS: FINAL FINAL REPORT: 10/12/2021 >100,000 CFU/ML UROGENITAL NORMA PRESENT NO COMMON PATHOGENS UNLESS OTHERWISE INDICATED, ALL TESTING PERFORMED [facility] [address] [place] [address] [employer]ERCIAL LINES ACCOUNT EXECUTIVE: NOAH DICKENS M.D. CLIA NUMBER [id number] [facility] [place]. [id number], [id number] 00:00:00 Test Item Value Reference Range Interpretation Comments CULTURE, URINE (test SPECIMEN NUMBER: code = 66064) [id number] CULTURE, [id number] 00:00:00 Test Item Value Reference Range Interpretation Comments CULTURE, URINE (test SPECIMEN NUMBER: code = 49211) [id number] CULTURE, [id number] 00:00:00 Test Item Value Reference Range Interpretation Comments CULTURE, URINE (test SPECIMEN NUMBER: code = 88177) [id number] CULTURE, [id number] 00:00:00 Test Item Value Reference Range Interpretation Comments CULTURE, URINE (test SPECIMEN NUMBER: code = 82391) [id number] CULTURE, [id number] 00:00:00 Test Item Value Reference Range Interpretation Comments CULTURE, URINE (test SPECIMEN NUMBER: code = 93363) [id number] CULTURE, [id number] 00:00:00 Test Item Value Reference Range Interpretation Comments CULTURE, URINE (test SPECIMEN NUMBER: code = 18631) [id number] CULTURE, [id number] 00:00:00 Test Item Value Reference Range Interpretation Comments CULTURE, URINE (test SPECIMEN NUMBER: code = 26515) [id number] CULTURE, [id number] 00:00:00 Test Item Value Reference Range Interpretation Comments CULTURE, URINE (test SPECIMEN NUMBER: code = 67195) [id number] CULTURE, [id number] 00:00:00 Test Item Value Reference Range Interpretation Comments CULTURE, URINE (test SPECIMEN NUMBER: code = 70503) [id number] CULTURE, [id number] 00:00:00 Test Item Value Reference Range Interpretation Comments CULTURE, URINE (test SPECIMEN NUMBER: code = 53207) [id number] CULTURE, [id number] 00:00:00 Test Item Value Reference Range Interpretation Comments CULTURE, URINE (test SPECIMEN NUMBER: code = 22984) [id number] CULTURE, [id number] 00:00:00 Test Item Value Reference Range Interpretation Comments CULTURE, URINE (test SPECIMEN NUMBER: code = 89840) [id number] CULTURE, [id number] 00:00:00 Test Item Value Reference Range Interpretation Comments CULTURE, URINE (test SPECIMEN NUMBER: code = 57784) [id number] CULTURE, [id number] 00:00:00 Test Item Value Reference Range Interpretation Comments CULTURE, URINE (test SPECIMEN NUMBER: code = 11702) [id number] CULTURE, [id number] 00:00:00 Test Item Value Reference Range Interpretation Comments CULTURE, URINE (test SPECIMEN NUMBER: code = 09207) [id number] CULTURE, [id number] 00:00:00 Test Item Value Reference Range Interpretation Comments CULTURE, URINE (test SPECIMEN NUMBER: code = 32148) [id number] CULTURE, [id number] 00:00:00 Test Item Value Reference Range Interpretation Comments CULTURE, URINE (test SPECIMEN NUMBER: code = 93970) [id number] CULTURE, [id number] 00:00:00 Test Item Value Reference Range Interpretation Comments CULTURE, URINE (test SPECIMEN NUMBER: code = 37361) [id number] CULTURE, [id number] 00:00:00 Test Item Value Reference Range Interpretation Comments CULTURE, URINE (test SPECIMEN NUMBER: code = 92518) [id number] CULTURE, [id number] 00:00:00 Test Item Value Reference Range Interpretation Comments CULTURE, URINE (test SPECIMEN NUMBER: code = 96261) [id number] CULTURE, [id number] 00:00:00 Test Item Value Reference Range Interpretation Comments CULTURE, URINE (test SPECIMEN NUMBER: code = 19320) [id number] URINE CULTURE, NO [id number] 09:46:36SPECIMEN NUMBER: [id number] URINE CULTURE, NO SENS SPECIMEN NUMBER: [id number] SPECIMEN COMMENT: URINESOURCE: URINE REPORT STATUS: FINAL FINAL REPORT: 10/08/2021 50-100,000 CFU/ML UROGENITAL NORMA PRESENT NO COMMON PATHOGENSURINE CULTURE, NO [id number] 00:00:00 Test Item Value Reference Range Interpretation Comments URINE CULTURE, NO SPECIMEN NUMBER: SENS (test code = 611193214 61613) URINE CULTURE, NO [id number] 00:00:00 Test Item Value Reference Range Interpretation Comments URINE CULTURE, NO SPECIMEN NUMBER: SENS (test code = 659357235 01762) URINE CULTURE, NO [id number] 00:00:00 Test Item Value Reference Range Interpretation Comments URINE CULTURE, NO SPECIMEN NUMBER: SENS (test code = 508941800 03017) URINE CULTURE, NO [id number] 00:00:00 Test Item Value Reference Range Interpretation Comments URINE CULTURE, NO SPECIMEN NUMBER: SENS (test code = 064476179 53913) URINE CULTURE, NO [id number] 00:00:00 Test Item Value Reference Range Interpretation Comments URINE CULTURE, NO SPECIMEN NUMBER: SENS (test code = 488293132 76151) URINE CULTURE, NO [id number] 00:00:00 Test Item Value Reference Range Interpretation Comments URINE CULTURE, NO SPECIMEN NUMBER: SENS (test code = 146609238 81625) URINE CULTURE, NO [id number] 00:00:00 Test Item Value Reference Range Interpretation Comments URINE CULTURE, NO SPECIMEN NUMBER: SENS (test code = 059075919 11974) URINE CULTURE, NO [id number] 00:00:00 Test Item Value Reference Range Interpretation Comments URINE CULTURE, NO SPECIMEN NUMBER: SENS (test code = 374869947 46288) URINE CULTURE, NO [id number] 00:00:00 Test Item Value Reference Range Interpretation Comments URINE CULTURE, NO SPECIMEN NUMBER: SENS (test code = 678219081 80772) URINE CULTURE, NO [id number] 00:00:00 Test Item Value Reference Range Interpretation Comments URINE CULTURE, NO SPECIMEN NUMBER: SENS (test code = 038268491 51582) URINE CULTURE, NO [id number] 00:00:00 Test Item Value Reference Range Interpretation Comments URINE CULTURE, NO SPECIMEN NUMBER: SENS (test code = 445435572 62238) URINE CULTURE, NO [id number] 00:00:00 Test Item Value Reference Range Interpretation Comments URINE CULTURE, NO SPECIMEN NUMBER: SENS (test code = 882470967 49890) URINE CULTURE, NO [id number] 00:00:00 Test Item Value Reference Range Interpretation Comments URINE CULTURE, NO SPECIMEN NUMBER: SENS (test code = 007863571 46214) URINE CULTURE, NO [id number] 00:00:00 Test Item Value Reference Range Interpretation Comments URINE CULTURE, NO SPECIMEN NUMBER: SENS (test code = 191212769 14553) URINE CULTURE, NO [id number] 00:00:00 Test Item Value Reference Range Interpretation Comments URINE CULTURE, NO SPECIMEN NUMBER: SENS (test code = 529937210 39489) URINE CULTURE, NO [id number] 00:00:00 Test Item Value Reference Range Interpretation Comments URINE CULTURE, NO SPECIMEN NUMBER: SENS (test code = 474167552 30323) URINE CULTURE, NO [id number] 00:00:00 Test Item Value Reference Range Interpretation Comments URINE CULTURE, NO SPECIMEN NUMBER: SENS (test code = 288714210 08284) URINE CULTURE, NO [id number] 00:00:00 Test Item Value Reference Range Interpretation Comments URINE CULTURE, NO SPECIMEN NUMBER: SENS (test code = 576456893 02500) URINE CULTURE, NO [id number] 00:00:00 Test Item Value Reference Range Interpretation Comments URINE CULTURE, NO SPECIMEN NUMBER: SENS (test code = 816604231 48485) URINE CULTURE, NO [id number] 00:00:00 Test Item Value Reference Range Interpretation Comments URINE CULTURE, NO SPECIMEN NUMBER: SENS (test code = 661816123 28035) URINE CULTURE, NO [id number] 00:00:00 Test Item Value Reference Range Interpretation Comments URINE CULTURE, NO SPECIMEN NUMBER: SENS (test code = 703321340 22700) CBC W/AUTO DIFF WITH [id number] 07:54:02 Test Item Value Reference Range Interpretation [...] RBCS 0.00 K/UL 0.00-0.11 (test code = 89990) COMPREHENSIVE METABOLIC [id number] 05:34:02 Test Item Value Reference Range Interpretation Comments GLUCOSE (test code = 108 MG/DL 70-99 H 2216) BUN (test code = 17 MG/DL 6-20 2207) CREATININE (test 0.84 MG/DL 0.60-1.30 code = 2213) eGFR (2020 CKD-EPI) 88 >60 (test code = ) ML/MIN/1.73 CALC BUN/CREAT (test 20 RATIO 6-28 code = 2235) SODIUM (test code = 141 MEQ/L 614-796 6816) POTASSIUM (test code 4.0 MEQ/L 3.5-5.4 = [...] [facility] [address] [place] [address] [facility] DIRECTOR: George BERNARDIA NUMBER [id number] CAP ACCREDITATION N O. [id number] CBC W/AUTO [id number] 00:00:00 Test Item Value Reference Range Interpretation [...] NUCLEATED RBCS (test code = 0.00 K/UL 12379) CBC W/AUTO [id number] 00:00:00 Test Item Value Reference Range Interpretation [...] NUCLEATED RBCS (test code = 0.00 K/UL 97914) CBC W/AUTO [id number] 00:00:00 Test Item Value Reference Range Interpretation [...] NUCLEATED RBCS (test code = 0.00 K/UL 98217) COMPREHENSIVE METABOLIC [id number] 00:00:00 Test Item Value Reference Range Interpretation Comments GLUCOSE (test code = 2217) 108 MG/DL BUN (test code = 2208) 17 MG/DL CREATININE (test code = 2214) 0.84 MG/DL eGFR (2020 CKD-EPI) (test code 88 ML/MIN/1.73 = 01712) CALC BUN/CREAT (test code = 20 RATIO [...] code = 2219) 28 U/L COMPREHENSIVE METABOLIC [id number] 00:00:00 Test Item Value Reference Range Interpretation Comments GLUCOSE (test code = 2217) 108 MG/DL BUN (test code = 2208) 17 MG/DL CREATININE (test code = 2214) 0.84 MG/DL eGFR (2020 CKD-EPI) (test code 88 ML/MIN/1.73 = 95287) CALC BUN/CREAT (test code = 20 RATIO [...] code = 2219) 28 U/L CBC W/AUTO [id number] 00:00:00 Test Item Value Reference Range Interpretation [...] NUCLEATED RBCS (test code = 0.00 K/UL 07764) CBC W/AUTO [id number] 00:00:00 Test Item Value Reference Range Interpretation [...] NUCLEATED RBCS (test code = 0.00 K/UL 69122) CBC W/AUTO [id number] 00:00:00 Test Item Value Reference Range Interpretation [...] NUCLEATED RBCS (test code = 0.00 K/UL 72157) COMPREHENSIVE METABOLIC [id number] 00:00:00 Test Item Value Reference Range Interpretation Comments GLUCOSE (test code = 2217) 108 MG/DL BUN (test code = 2208) 17 MG/DL CREATININE (test code = 2214) 0.84 MG/DL eGFR (2020 CKD-EPI) (test code 88 ML/MIN/1.73 = 77530) CALC BUN/CREAT (test code = 20 RATIO [...] code = 2219) 28 U/L COMPREHENSIVE METABOLIC [id number] 00:00:00 Test Item Value Reference Range Interpretation Comments GLUCOSE (test code = 2217) 108 MG/DL BUN (test code = 2208) 17 MG/DL CREATININE (test code = 2214) 0.84 MG/DL eGFR (2020 CKD-EPI) (test code 88 ML/MIN/1.73 = 46330) CALC BUN/CREAT (test code = 20 RATIO [...] code = 2219) 28 U/L CBC W/AUTO [id number] 00:00:00 Test Item Value Reference Range Interpretation [...] NUCLEATED RBCS (test code = 0.00 K/UL 43628) CBC W/AUTO [id number] 00:00:00 Test Item Value Reference Range Interpretation [...] NUCLEATED RBCS (test code = 0.00 K/UL 16961) CBC W/AUTO [id number] 00:00:00 Test Item Value Reference Range Interpretation [...] NUCLEATED RBCS (test code = 0.00 K/UL 23802) COMPREHENSIVE METABOLIC [id number] 00:00:00 Test Item Value Reference Range Interpretation Comments GLUCOSE (test code = 2217) 108 MG/DL BUN (test code = 2208) 17 MG/DL CREATININE (test code = 2214) 0.84 MG/DL eGFR (2020 CKD-EPI) (test code 88 ML/MIN/1.73 = 09539) CALC BUN/CREAT (test code = 20 RATIO [...] code = 2219) 28 U/L COMPREHENSIVE METABOLIC [id number] 00:00:00 Test Item Value Reference Range Interpretation Comments GLUCOSE (test code = 2217) 108 MG/DL BUN (test code = 2208) 17 MG/DL CREATININE (test code = 2214) 0.84 MG/DL eGFR (2020 CKD-EPI) (test code 88 ML/MIN/1.73 = 50916) CALC BUN/CREAT (test code = 20 RATIO [...] code = 2219) 28 U/L CBC W/AUTO [id number] 00:00:00 Test Item Value Reference Range Interpretation [...] NUCLEATED RBCS (test code = 0.00 K/UL 35422) CBC W/AUTO [id number] 00:00:00 Test Item Value Reference Range Interpretation [...] NUCLEATED RBCS (test code = 0.00 K/UL 96746) CBC W/AUTO [id number] 00:00:00 Test Item Value Reference Range Interpretation [...] NUCLEATED RBCS (test code = 0.00 K/UL 16749) COMPREHENSIVE METABOLIC [id number] 00:00:00 Test Item Value Reference Range Interpretation Comments GLUCOSE (test code = 2217) 108 MG/DL BUN (test code = 2208) 17 MG/DL CREATININE (test code = 2214) 0.84 MG/DL eGFR (2020 CKD-EPI) (test code 88 ML/MIN/1.73 = 19600) CALC BUN/CREAT (test code = 20 RATIO [...] code = 2219) 28 U/L COMPREHENSIVE METABOLIC [id number] 00:00:00 Test Item Value Reference Range Interpretation Comments GLUCOSE (test code = 2217) 108 MG/DL BUN (test code = 2208) 17 MG/DL CREATININE (test code = 2214) 0.84 MG/DL eGFR (2020 CKD-EPI) (test code 88 ML/MIN/1.73 = 20903) CALC BUN/CREAT (test code = 20 RATIO [...] code = 2219) 28 U/L CBC W/AUTO [id number] 00:00:00 Test Item Value Reference Range Interpretation [...] NUCLEATED RBCS (test code = 0.00 K/UL 17541) CBC W/AUTO [id number] 00:00:00 Test Item Value Reference Range Interpretation [...] NUCLEATED RBCS (test code = 0.00 K/UL 97058) CBC W/AUTO [id number] 00:00:00 Test Item Value Reference Range Interpretation [...] NUCLEATED RBCS (test code = 0.00 K/UL 13697) COMPREHENSIVE METABOLIC [id number] 00:00:00 Test Item Value Reference Range Interpretation Comments GLUCOSE (test code = 2217) 108 MG/DL BUN (test code = 2208) 17 MG/DL CREATININE (test code = 2214) 0.84 MG/DL eGFR (2020 CKD-EPI) (test code 88 ML/MIN/1.73 = 62299) CALC BUN/CREAT (test code = 20 RATIO [...] code = 2219) 28 U/L COMPREHENSIVE METABOLIC [id number] 00:00:00 Test Item Value Reference Range Interpretation Comments GLUCOSE (test code = 2217) 108 MG/DL BUN (test code = 2208) 17 MG/DL CREATININE (test code = 2214) 0.84 MG/DL eGFR (2020 CKD-EPI) (test code 88 ML/MIN/1.73 = 29530) CALC BUN/CREAT (test code = 20 RATIO 223) SODIUM (test code = 2231) 141 MEQ/L [...] code = 2219) 28 U/L CBC W/AUTO [id number] 00:00:00 Test Item Value Reference Range Interpretation [...] NUCLEATED RBCS (test code = 0.00 K/UL 37037) CBC W/AUTO [id number] 00:00:00 Test Item Value Reference Range Interpretation [...] NUCLEATED RBCS (test code = 0.00 K/UL 23539) CBC W/AUTO [id number] 00:00:00 Test Item Value Reference Range Interpretation [...] NUCLEATED RBCS (test code = 0.00 K/UL 32425) COMPREHENSIVE METABOLIC [id number] 00:00:00 Test Item Value Reference Range Interpretation Comments GLUCOSE (test code = 2217) 108 MG/DL BUN (test code = 2208) 17 MG/DL CREATININE (test code = 2214) 0.84 MG/DL eGFR (2020 CKD-EPI) (test code 88 ML/MIN/1.73 = 77329) CALC BUN/CREAT (test code = 20 RATIO [...] code = 2219) 28 U/L COMPREHENSIVE METABOLIC [id number] 00:00:00 Test Item Value Reference Range Interpretation Comments GLUCOSE (test code = 2217) 108 MG/DL BUN (test code = 2208) 17 MG/DL CREATININE (test code = 2214) 0.84 MG/DL eGFR (2020 CKD-EPI) (test code 88 ML/MIN/1.73 = 54665) CALC BUN/CREAT (test code = 20 RATIO [...] code = 2219) 28 U/L CBC W/AUTO [id number] 00:00:00 Test Item Value Reference Range Interpretation [...] NUCLEATED RBCS (test code = 0.00 K/UL 36940) CBC W/AUTO [id number] 00:00:00 Test Item Value Reference Range Interpretation [...] NUCLEATED RBCS (test code = 0.00 K/UL 98749) CBC W/AUTO [id number] 00:00:00 Test Item Value Reference Range Interpretation [...] NUCLEATED RBCS (test code = 0.00 K/UL 79876) COMPREHENSIVE METABOLIC [id number] 00:00:00 Test Item Value Reference Range Interpretation Comments GLUCOSE (test code = 2217) 108 MG/DL BUN (test code = 2208) 17 MG/DL CREATININE (test code = 2214) 0.84 MG/DL eGFR (2020 CKD-EPI) (test code 88 ML/MIN/1.73 = 52184) CALC BUN/CREAT (test code = 20 RATIO [...] code = 2219) 28 U/L COMPREHENSIVE METABOLIC [id number] 00:00:00 Test Item Value Reference Range Interpretation Comments GLUCOSE (test code = 2217) 108 MG/DL BUN (test code = 2208) 17 MG/DL CREATININE (test code = 2214) 0.84 MG/DL eGFR (2020 CKD-EPI) (test code 88 ML/MIN/1.73 = 65268) CALC BUN/CREAT (test code = 20 RATIO [...] code = 2219) 28 U/L CBC W/AUTO [id number] 00:00:00 Test Item Value Reference Range Interpretation [...] NUCLEATED RBCS (test code = 0.00 K/UL 09871) CBC W/AUTO [id number] 00:00:00 Test Item Value Reference Range Interpretation [...] NUCLEATED RBCS (test code = 0.00 K/UL 62195) COMPREHENSIVE METABOLIC [id number] 00:00:00 Test Item Value Reference Range Interpretation Comments GLUCOSE (test code = 2217) 108 MG/DL BUN (test code = 2208) 17 MG/DL CREATININE (test code = 2214) 0.84 MG/DL eGFR (2020 CKD-EPI) (test code 88 ML/MIN/1.73 = 02264) CALC BUN/CREAT (test code = 20 RATIO [...] code = 2219) 28 U/L CBC W/AUTO [id number] 00:00:00 Test Item Value Reference Range Interpretation [...] NUCLEATED RBCS (test code = 0.00 K/UL 34292) CBC W/AUTO [id number] 00:00:00 Test Item Value Reference Range Interpretation [...] NUCLEATED RBCS (test code = 0.00 K/UL 55129) CBC W/AUTO [id number] 00:00:00 Test Item Value Reference Range Interpretation [...] NUCLEATED RBCS (test code = 0.00 K/UL 90415) COMPREHENSIVE METABOLIC [id number] 00:00:00 Test Item Value Reference Range Interpretation Comments GLUCOSE (test code = 2217) 108 MG/DL BUN (test code = 2208) 17 MG/DL CREATININE (test code = 2214) 0.84 MG/DL eGFR (2020 CKD-EPI) (test code 88 ML/MIN/1.73 = 47599) CALC BUN/CREAT (test code = 20 RATIO [...] code = 2219) 28 U/L COMPREHENSIVE METABOLIC [id number] 00:00:00 Test Item Value Reference Range Interpretation Comments GLUCOSE (test code = 2217) 108 MG/DL BUN (test code = 2208) 17 MG/DL CREATININE (test code = 2214) 0.84 MG/DL eGFR (2020 CKD-EPI) (test code 88 ML/MIN/1.73 = 69962) CALC BUN/CREAT (test code = 20 RATIO [...] code = 2219) 28 U/L CBC W/AUTO [id number] 00:00:00 Test Item Value Reference Range Interpretation [...] NUCLEATED RBCS (test code = 0.00 K/UL 93092) CBC W/AUTO [id number] 00:00:00 Test Item Value Reference Range Interpretation [...] NUCLEATED RBCS (test code = 0.00 K/UL 87928) CBC W/AUTO [id number] 00:00:00 Test Item Value Reference Range Interpretation [...] NUCLEATED RBCS (test code = 0.00 K/UL 33628) COMPREHENSIVE METABOLIC [id number] 00:00:00 Test Item Value Reference Range Interpretation Comments GLUCOSE (test code = 2217) 108 MG/DL BUN (test code = 2208) 17 MG/DL CREATININE (test code = 2214) 0.84 MG/DL eGFR (2020 CKD-EPI) (test code 88 ML/MIN/1.73 = 31343) CALC BUN/CREAT (test code = 20 RATIO [...] code = 2219) 28 U/L COMPREHENSIVE METABOLIC [id number] 00:00:00 Test Item Value Reference Range Interpretation Comments GLUCOSE (test code = 2217) 108 MG/DL BUN (test code = 2208) 17 MG/DL CREATININE (test code = 2214) 0.84 MG/DL eGFR (2020 CKD-EPI) (test code 88 ML/MIN/1.73 = 05636) CALC BUN/CREAT (test code = 20 RATIO [...] code = 2219) 28 U/L CBC W/AUTO [id number] 00:00:00 Test Item Value Reference Range Interpretation [...] NUCLEATED RBCS (test code = 0.00 K/UL 97150) CBC W/AUTO [id number] 00:00:00 Test Item Value Reference Range Interpretation [...] NUCLEATED RBCS (test code = 0.00 K/UL 01921) CBC W/AUTO [id number] 00:00:00 Test Item Value Reference Range Interpretation [...] NUCLEATED RBCS (test code = 0.00 K/UL 90116) COMPREHENSIVE METABOLIC [id number] 00:00:00 Test Item Value Reference Range Interpretation Comments GLUCOSE (test code = 2217) 108 MG/DL BUN (test code = 2208) 17 MG/DL CREATININE (test code = 2214) 0.84 MG/DL eGFR (2020 CKD-EPI) (test code 88 ML/MIN/1.73 = 56450) CALC BUN/CREAT (test code = 20 RATIO [...] code = 2219) 28 U/L COMPREHENSIVE METABOLIC [id number] 00:00:00 Test Item Value Reference Range Interpretation Comments GLUCOSE (test code = 2217) 108 MG/DL BUN (test code = 2208) 17 MG/DL CREATININE (test code = 2214) 0.84 MG/DL eGFR (2020 CKD-EPI) (test code 88 ML/MIN/1.73 = 12883) CALC BUN/CREAT (test code = 20 RATIO [...] = 2219) 28 U/L COMP. METABOLIC PANEL ([id number] 15:36:43 Test Item Value Reference Range Interpretation Comments NA (test code = 133 mmol/L 135-145 L 8358636389) K (test code = 4.8 mmol/L 3.5-5.0 9279110017) CL (test code = 96 mmol/L 98-108 L 2884687751) CO2 TOTAL (test code = 21 mmol/L 23-31 L 5570117616) AGAP (test code = 2-16 5567975984) BUN (test code = 30 mg/dL 7-23 H 3868513610) GLUCOSE (test code = 405 mg/dL 70-110 H 7141086631) CREATININE (test code = 0.74 mg/dL 0.50-1.04 7630199879) TOTAL BILI (test code = 0.6 mg/dL 0.1-1.7 4841599788) CALCIUM (test code = 9.7 mg/dL 8.6-10.6 8019360723) T PROTEIN (test code = 7.9 g/dL 6.3-8.2 7063158502) ALBUMIN (test code = 4.9 g/dL 3.5-5.0 0522077460) ALK PHOS (test code = 66 U/L 34-122 1314617818) ALTv (test code = 37 U/L 5-35 H 1742-6) AST(SGOT) (test code = 31 U/L 13-40 1958906274) eGFR (test code = mL/min/1.73m2 5360156165) CALVIN (test code = CALVIN) Association of [...] tests). Lab Interpretation Abnormal (test code = 52299-3) [facility] WITH [id number] 15:26:02 Test Item Value Reference Range Interpretation Comments WBC (test code = See_Comment [Automated 6483-2) message] The sy stem which generated this result transmitted reference range : 4.30 - 11.10 10*3/?L. The reference range was not used to interpret this result as normal/abnormal . RBC (test code = See_Comment [Automated 366-8) message] The sy stem which generated this [...] (test code = 38.2 fL 39.0-49.9 L 59018-1) RDW-CV (test code = 12.9 % 12.0-15.5 788-0) PLT (test code = See_Comment [Automated 936-3) message] The sy stem which generated this result transmitted reference range : 166 - 358 10*3/ ?L. The reference r doretha was not used to interpret this result as normal/abnormal . MPV (test code = 9.8 fL 9.5-12.9 52479-8) NRBC/100 WBC (test See_Comment [Automat ed code = 3107410271) message] The system which generated this result transmitted reference range : 0.0 - 10.0 /100 WBCs. The refer ence range was not u sed to interpret th is result as normal/abnormal . NRBC x10^3 (test code <0.01 See_Comment [Auto mated = 4398628872) message] The s ystem which generated this result transmitted reference range : 10*3/?L. The reference range was not used to interpret this result as normal/abnormal . GRAN MAT (NEUT) % 50.6 % (test code = 770-8) IMM GRAN % (test code 0.80 % = 3000929258) LYMPH % (test code = 37.0 % 736-9) MONO % (test code = 8.5 % 5905-5) EOS % (test code = 2.2 % 713-8) BASO % (test code = 0.9 % 706-2) GRAN MAT x10^3(ANC) 3.86 10*3/uL 1.88-7.09 (test code = 5534686734) IMM GRAN x10^3 (test 0.06 10*3/uL 0.00-0.06 code = 8406586709) LYMPH x10^3 (test code 2.83 10*3/uL 1.32-3.29 = 731-0) MONO x10^3 (test code 0.65 10*3/uL 0.33-0.92 = 742-7) EOS x10^3 (test code = 0.17 10*3/uL 0.03-0.39 711-2) BASO x10^3 (test code 0.07 10*3/uL 0.01-0.07 = 704-7) Lab Interpretation Abnormal (test code = 87749-0) [facility] [id number] 15:18:00 Test Item Value Reference Range Interpretation Comments POCT PREG (test code = 1605) negative On board controls acceptable with present C Line (test code = 3574) POCT PREG LOT # (test code = 3575) [id number] POCT PREG TEST DATE (test 09/07/2022 code = 3576) Lab Interpretation (test code = Normal 47687-9) [id number] Test Item Value Reference Range Interpretation Comments GLUBED (test code = GLUBED) 260 mg/dL 60-125 H [id number] 06:42:00 Test Item Value Reference Range Interpretation Comments GLUBED (test code = GLUBED) 265 mg/dL 60-125 H COVID 19 Asymptomatic IH [id number] 17:24:00 Test Item Value Reference Range Interpretation Comments COVID 19 Asymptomatic IH AG (test NEGATIVE NEGATIVE code = COVNONPUIAG) COMPREHENSIVE METABOLIC [id number] 05:38:33 Test Item Value Reference Range Interpretation Comments GLUCOSE (test code = 411 MG/DL 70-99 H 2216) BUN (test code = 24 MG/DL 6-20 H 2207) CREATININE (test 1.13 MG/DL 0.60-1.30 code = 2214) eGFR (2020 CKD-EPI) 62 ML/MIN/1.73 >60 (test code = 07315) CALC BUN/CREAT (test 21 RATIO -28 code = 2235) SODIUM (test code = 136 MEQ/L 267-550 7683) POTASSIUM (test code 5.0 MEQ/L 3.5-5.4 = [...] = 49 U/L 5-40 H 2218) LIPID [id number] 05:38:33 Test Item Value Reference Range Interpretation Comments CHOLESTEROL (test 176 MG/DL <200 code = 2210) TRIGLYCERIDES (test 614 MG/DL <150 H code = 2232) HDL CHOLESTEROL 28 MG/DL >39 L (test code = 0) CALC LDL CHOL (test (NOTE) MG/DL <100 [...] MOREINFORMATION , SEE CLIENT ANNOUNCE MENT AT [email or web address] CalcLDL-C RISK RATIO LDL/HDL 2.79 RATIO <3.22 UNABLE T O CALCULATE (test code = 2238) UNLESS OT HERWISE INDICATED, ALL TESTING PERFORMED [facility] [address] [place] [address] 4 LABORATORY DIRE CTOR: NOAH TODD M.D. CLIA NUMBER [id number] [place]. [id number] HEMOGLOBIN [id number] 03:55:33 Test Item Value Reference Range Interpretation Comments HEMOGLOBIN A1c (test 11.9 % 4.2-5.6 H [employer]ES code = 41868) ASSOCIATION [employer] FOR HGB A1C: PREDIABETES/INC REASED [...] TESTING OR LABORATORY C ONSULTATION. COMPREHENSIVE METABOLIC [id number] 00:00:00 Test Item Value Reference Range Interpretation Comments GLUCOSE (test code = 2217) 411 MG/DL BUN (test code = 2208) 24 MG/DL CREATININE (test code = 2214) 1.13 MG/DL eGFR (2020 CKD-EPI) (test code 62 ML/MIN/1.73 = 93393) CALC BUN/CREAT (test code = 21 RATIO [...] code = 2219) 49 U/L COMPREHENSIVE METABOLIC [id number] 00:00:00 Test Item Value Reference Range Interpretation Comments GLUCOSE (test code = 2217) 411 MG/DL BUN (test code = 2208) 24 MG/DL CREATININE (test code = 2214) 1.13 MG/DL eGFR (2020 CKD-EPI) (test code 62 ML/MIN/1.73 = 46071) CALC BUN/CREAT (test code = 21 RATIO [...] (test code = 2219) 49 U/L HEMOGLOBIN [id number] 00:00:00 Test Item Value Reference Range Interpretation Comments HEMOGLOBIN A1c (test code = 65830) 11.9 % HEMOGLOBIN [id number] 00:00:00 Test Item Value Reference Range Interpretation Comments HEMOGLOBIN A1c (test code = 01108) 11.9 % HEMOGLOBIN [id number] 00:00:00 Test Item Value Reference Range Interpretation Comments HEMOGLOBIN A1c (test code = 28986) 11.9 % LIPID [id number] 00:00:00 Test Item Value Reference Range Interpretation Comments CHOLESTEROL (test code = 2210) 176 MG/DL TRIGLYCERIDES (test code = 2232) 614 MG/DL HDL CHOLESTEROL (test code = 28 MG/DL 2220) CALC LDL CHOL (test code = 2237) (NOTE) MG/DL RISK RATIO LDL/HDL (test code = 2.79 RATIO 2238) LIPID [id number] 00:00:00 Test Item Value Reference Range Interpretation Comments CHOLESTEROL (test code = 2210) 176 MG/DL TRIGLYCERIDES (test code = 2232) 614 MG/DL HDL CHOLESTEROL (test code = 28 MG/DL 2220) CALC LDL CHOL (test code = 2237) (NOTE) MG/DL RISK RATIO LDL/HDL (test code = 2.79 RATIO 2238) COMPREHENSIVE METABOLIC [id number] 00:00:00 Test Item Value Reference Range Interpretation Comments GLUCOSE (test code = 2217) 411 MG/DL BUN (test code = 8) 24 MG/DL CREATININE (test code = 2214) 1.13 MG/DL eGFR (2020 CKD-EPI) (test code 62 ML/MIN/1.73 = 43096) CALC BUN/CREAT (test code = 21 RATIO [...] code = 2219) 49 U/L COMPREHENSIVE METABOLIC [id number] 00:00:00 Test Item Value Reference Range Interpretation Comments GLUCOSE (test code = 7) 411 MG/DL BUN (test code = 2208) 24 MG/DL CREATININE (test code = 2214) 1.13 MG/DL eGFR (2020 CKD-EPI) (test code 62 ML/MIN/1.73 = 70486) CALC BUN/CREAT (test code = 21 RATIO [...] (test code = 2219) 49 U/L HEMOGLOBIN [id number] 00:00:00 Test Item Value Reference Range Interpretation Comments HEMOGLOBIN A1c (test code = 82431) 11.9 % HEMOGLOBIN [id number] 00:00:00 Test Item Value Reference Range Interpretation Comments HEMOGLOBIN A1c (test code = 67967) 11.9 % HEMOGLOBIN [id number] 00:00:00 Test Item Value Reference Range Interpretation Comments HEMOGLOBIN A1c (test code = 06586) 11.9 % LIPID [id number] 00:00:00 Test Item Value Reference Range Interpretation Comments CHOLESTEROL (test code = 2210) 176 MG/DL TRIGLYCERIDES (test code = 2232) 614 MG/DL HDL CHOLESTEROL (test code = 28 MG/DL 2220) CALC LDL CHOL (test code = 2237) (NOTE) MG/DL RISK RATIO LDL/HDL (test code = 2.79 RATIO 2238) LIPID [id number] 00:00:00 Test Item Value Reference Range Interpretation Comments CHOLESTEROL (test code = 2210) 176 MG/DL TRIGLYCERIDES (test code = 2232) 614 MG/DL HDL CHOLESTEROL (test code = 28 MG/DL 2220) CALC LDL CHOL (test code = 2237) (NOTE) MG/DL RISK RATIO LDL/HDL (test code = 2.79 RATIO 2238) COMPREHENSIVE METABOLIC [id number] 00:00:00 Test Item Value Reference Range Interpretation Comments GLUCOSE (test code = 2217) 411 MG/DL BUN (test code = 2208) 24 MG/DL CREATININE (test code = 2214) 1.13 MG/DL eGFR (2020 CKD-EPI) (test code 62 ML/MIN/1.73 = 89035) CALC BUN/CREAT (test code = 21 RATIO [...] code = 2219) 49 U/L COMPREHENSIVE METABOLIC [id number] 00:00:00 Test Item Value Reference Range Interpretation Comments GLUCOSE (test code = 2217) 411 MG/DL BUN (test code = 2208) 24 MG/DL CREATININE (test code = 2214) 1.13 MG/DL eGFR (2020 CKD-EPI) (test code 62 ML/MIN/1.73 = 50060) CALC BUN/CREAT (test code = 21 RATIO [...] (test code = 2219) 49 U/L HEMOGLOBIN [id number] 00:00:00 Test Item Value Reference Range Interpretation Comments HEMOGLOBIN A1c (test code = 87691) 11.9 % HEMOGLOBIN [id number] 00:00:00 Test Item Value Reference Range Interpretation Comments HEMOGLOBIN A1c (test code = 70833) 11.9 % HEMOGLOBIN [id number] 00:00:00 Test Item Value Reference Range Interpretation Comments HEMOGLOBIN A1c (test code = 54857) 11.9 % LIPID [id number] 00:00:00 Test Item Value Reference Range Interpretation Comments CHOLESTEROL (test code = 2210) 176 MG/DL TRIGLYCERIDES (test code = 2232) 614 MG/DL HDL CHOLESTEROL (test code = 28 MG/DL 2219) CALC LDL CHOL (test code = 223) (NOTE) MG/DL RISK RATIO LDL/HDL (test code = 2.79 RATIO 8) LIPID [id number] 00:00:00 Test Item Value Reference Range Interpretation Comments CHOLESTEROL (test code = 2210) 176 MG/DL TRIGLYCERIDES (test code = 2232) 614 MG/DL HDL CHOLESTEROL (test code = 28 MG/DL 2220) CALC LDL CHOL (test code = 2237) (NOTE) MG/DL RISK RATIO LDL/HDL (test code = 2.79 RATIO 2238) COMPREHENSIVE METABOLIC [id number] 00:00:00 Test Item Value Reference Range Interpretation Comments GLUCOSE (test code = 2217) 411 MG/DL BUN (test code = 2208) 24 MG/DL CREATININE (test code = 2214) 1.13 MG/DL eGFR (2020 CKD-EPI) (test code 62 ML/MIN/1.73 = 74364) CALC BUN/CREAT (test code = 21 RATIO [...] code = 2219) 49 U/L COMPREHENSIVE METABOLIC [id number] 00:00:00 Test Item Value Reference Range Interpretation Comments GLUCOSE (test code = 2217) 411 MG/DL BUN (test code = 2208) 24 MG/DL CREATININE (test code = 2214) 1.13 MG/DL eGFR (2020 CKD-EPI) (test code 62 ML/MIN/1.73 = 38598) CALC BUN/CREAT (test code = 21 RATIO [...] (test code = 2219) 49 U/L HEMOGLOBIN [id number] 00:00:00 Test Item Value Reference Range Interpretation Comments HEMOGLOBIN A1c (test code = 82697) 11.9 % HEMOGLOBIN [id number] 00:00:00 Test Item Value Reference Range Interpretation Comments HEMOGLOBIN A1c (test code = 01018) 11.9 % HEMOGLOBIN [id number] 00:00:00 Test Item Value Reference Range Interpretation Comments HEMOGLOBIN A1c (test code = 53196) 11.9 % LIPID [id number] 00:00:00 Test Item Value Reference Range Interpretation Comments CHOLESTEROL (test code = 2210) 176 MG/DL TRIGLYCERIDES (test code = 2232) 614 MG/DL HDL CHOLESTEROL (test code = 28 MG/DL 2220) CALC LDL CHOL (test code = 2237) (NOTE) MG/DL RISK RATIO LDL/HDL (test code = 2.79 RATIO 2238) LIPID [id number] 00:00:00 Test Item Value Reference Range Interpretation Comments CHOLESTEROL (test code = 2210) 176 MG/DL TRIGLYCERIDES (test code = 2232) 614 MG/DL HDL CHOLESTEROL (test code = 28 MG/DL 2220) CALC LDL CHOL (test code = 2237) (NOTE) MG/DL RISK RATIO LDL/HDL (test code = 2.79 RATIO 2238) COMPREHENSIVE METABOLIC [id number] 00:00:00 Test Item Value Reference Range Interpretation Comments GLUCOSE (test code = 2217) 411 MG/DL BUN (test code = 2208) 24 MG/DL CREATININE (test code = 2214) 1.13 MG/DL eGFR (2020 CKD-EPI) (test code 62 ML/MIN/1.73 = 86266) CALC BUN/CREAT (test code = 21 RATIO [...] code = 2219) 49 U/L COMPREHENSIVE METABOLIC [id number] 00:00:00 Test Item Value Reference Range Interpretation Comments GLUCOSE (test code = 2216) 411 MG/DL BUN (test code = 8) 24 MG/DL CREATININE (test code = 2214) 1.13 MG/DL eGFR (2020 CKD-EPI) (test code 62 ML/MIN/1.73 = 18722) CALC BUN/CREAT (test code = 21 RATIO [...] (test code = 2219) 49 U/L HEMOGLOBIN [id number] 00:00:00 Test Item Value Reference Range Interpretation Comments HEMOGLOBIN A1c (test code = 62588) 11.9 % HEMOGLOBIN [id number] 00:00:00 Test Item Value Reference Range Interpretation Comments HEMOGLOBIN A1c (test code = 99387) 11.9 % HEMOGLOBIN [id number] 00:00:00 Test Item Value Reference Range Interpretation Comments HEMOGLOBIN A1c (test code = 95144) 11.9 % LIPID [id number] 00:00:00 Test Item Value Reference Range Interpretation Comments CHOLESTEROL (test code = 2210) 176 MG/DL TRIGLYCERIDES (test code = 2232) 614 MG/DL HDL CHOLESTEROL (test code = 28 MG/DL 2220) CALC LDL CHOL (test code = 2237) (NOTE) MG/DL RISK RATIO LDL/HDL (test code = 2.79 RATIO 2238) LIPID [id number] 00:00:00 Test Item Value Reference Range Interpretation Comments CHOLESTEROL (test code = 2210) 176 MG/DL TRIGLYCERIDES (test code = 2232) 614 MG/DL HDL CHOLESTEROL (test code = 28 MG/DL 2220) CALC LDL CHOL (test code = 2237) (NOTE) MG/DL RISK RATIO LDL/HDL (test code = 2.79 RATIO 2238) COMPREHENSIVE METABOLIC [id number] 00:00:00 Test Item Value Reference Range Interpretation Comments GLUCOSE (test code = 2217) 411 MG/DL BUN (test code = 2208) 24 MG/DL CREATININE (test code = 2214) 1.13 MG/DL eGFR (2020 CKD-EPI) (test code 62 ML/MIN/1.73 = 09611) CALC BUN/CREAT (test code = 21 RATIO [...] code = 2219) 49 U/L COMPREHENSIVE METABOLIC [id number] 00:00:00 Test Item Value Reference Range Interpretation Comments GLUCOSE (test code = 2217) 411 MG/DL BUN (test code = 2208) 24 MG/DL CREATININE (test code = 2214) 1.13 MG/DL eGFR (2020 CKD-EPI) (test code 62 ML/MIN/1.73 = 98884) CALC BUN/CREAT (test code = 21 RATIO [...] (test code = 2219) 49 U/L HEMOGLOBIN [id number] 00:00:00 Test Item Value Reference Range Interpretation Comments HEMOGLOBIN A1c (test code = 46132) 11.9 % HEMOGLOBIN [id number] 00:00:00 Test Item Value Reference Range Interpretation Comments HEMOGLOBIN A1c (test code = 18176) 11.9 % HEMOGLOBIN [id number] 00:00:00 Test Item Value Reference Range Interpretation Comments HEMOGLOBIN A1c (test code = 74892) 11.9 % LIPID [id number] 00:00:00 Test Item Value Reference Range Interpretation Comments CHOLESTEROL (test code = 2210) 176 MG/DL TRIGLYCERIDES (test code = 2232) 614 MG/DL HDL CHOLESTEROL (test code = 28 MG/DL 2219) CALC LDL CHOL (test code = 2237) (NOTE) MG/DL RISK RATIO LDL/HDL (test code = 2.79 RATIO 8) LIPID [id number] 00:00:00 Test Item Value Reference Range Interpretation Comments CHOLESTEROL (test code = 2210) 176 MG/DL TRIGLYCERIDES (test code = 2232) 614 MG/DL HDL CHOLESTEROL (test code = 28 MG/DL 0) CALC LDL CHOL (test code = 2237) (NOTE) MG/DL RISK RATIO LDL/HDL (test code = 2.79 RATIO 2238) COMPREHENSIVE METABOLIC [id number] 00:00:00 Test Item Value Reference Range Interpretation Comments GLUCOSE (test code = 2217) 411 MG/DL BUN (test code = 2208) 24 MG/DL CREATININE (test code = 2214) 1.13 MG/DL eGFR (2020 CKD-EPI) (test code 62 ML/MIN/1.73 = 72970) CALC BUN/CREAT (test code = 21 RATIO [...] code = 2219) 49 U/L COMPREHENSIVE METABOLIC [id number] 00:00:00 Test Item Value Reference Range Interpretation Comments GLUCOSE (test code = 2217) 411 MG/DL BUN (test code = 2208) 24 MG/DL CREATININE (test code = 2214) 1.13 MG/DL eGFR (2020 CKD-EPI) (test code 62 ML/MIN/1.73 = 30017) CALC BUN/CREAT (test code = 21 RATIO [...] (test code = 2219) 49 U/L HEMOGLOBIN [id number] 00:00:00 Test Item Value Reference Range Interpretation Comments HEMOGLOBIN A1c (test code = 48478) 11.9 % HEMOGLOBIN [id number] 00:00:00 Test Item Value Reference Range Interpretation Comments HEMOGLOBIN A1c (test code = 46257) 11.9 % HEMOGLOBIN [id number] 00:00:00 Test Item Value Reference Range Interpretation Comments HEMOGLOBIN A1c (test code = 88743) 11.9 % LIPID [id number] 00:00:00 Test Item Value Reference Range Interpretation Comments CHOLESTEROL (test code = 2210) 176 MG/DL TRIGLYCERIDES (test code = 2232) 614 MG/DL HDL CHOLESTEROL (test code = 28 MG/DL 2220) CALC LDL CHOL (test code = 2237) (NOTE) MG/DL RISK RATIO LDL/HDL (test code = 2.79 RATIO 2238) LIPID [id number] 00:00:00 Test Item Value Reference Range Interpretation Comments CHOLESTEROL (test code = 2210) 176 MG/DL TRIGLYCERIDES (test code = 2232) 614 MG/DL HDL CHOLESTEROL (test code = 28 MG/DL 2220) CALC LDL CHOL (test code = 2237) (NOTE) MG/DL RISK RATIO LDL/HDL (test code = 2.79 RATIO 2238) COMPREHENSIVE METABOLIC [id number] 00:00:00 Test Item Value Reference Range Interpretation Comments GLUCOSE (test code = 2217) 411 MG/DL BUN (test code = 2208) 24 MG/DL CREATININE (test code = 2214) 1.13 MG/DL eGFR (2020 CKD-EPI) (test code 62 ML/MIN/1.73 = 43681) CALC BUN/CREAT (test code = 21 RATIO [...] (test code = 2219) 49 U/L HEMOGLOBIN [id number] 00:00:00 Test Item Value Reference Range Interpretation Comments HEMOGLOBIN A1c (test code = 59535) 11.9 % HEMOGLOBIN [id number] 00:00:00 Test Item Value Reference Range Interpretation Comments HEMOGLOBIN A1c (test code = 96247) 11.9 % LIPID [id number] 00:00:00 Test Item Value Reference Range Interpretation Comments CHOLESTEROL (test code = 2210) 176 MG/DL TRIGLYCERIDES (test code = 2232) 614 MG/DL HDL CHOLESTEROL (test code = 28 MG/DL 2219) CALC LDL CHOL (test code = 2237) (NOTE) MG/DL RISK RATIO LDL/HDL (test code = 2.79 RATIO 2238) COMPREHENSIVE METABOLIC [id number] 00:00:00 Test Item Value Reference Range Interpretation Comments GLUCOSE (test code = 2217) 411 MG/DL BUN (test code = 2208) 24 MG/DL CREATININE (test code = 2214) 1.13 MG/DL eGFR (2020 CKD-EPI) (test code 62 ML/MIN/1.73 = 50395) CALC BUN/CREAT (test code = 21 RATIO [...] code = 2219) 49 U/L COMPREHENSIVE METABOLIC [id number] 00:00:00 Test Item Value Reference Range Interpretation Comments GLUCOSE (test code = 2217) 411 MG/DL BUN (test code = 2208) 24 MG/DL CREATININE (test code = 2214) 1.13 MG/DL eGFR (2020 CKD-EPI) (test code 62 ML/MIN/1.73 = 40172) CALC BUN/CREAT (test code = 21 RATIO [...] (test code = 2219) 49 U/L HEMOGLOBIN [id number] 00:00:00 Test Item Value Reference Range Interpretation Comments HEMOGLOBIN A1c (test code = 39303) 11.9 % HEMOGLOBIN [id number] 00:00:00 Test Item Value Reference Range Interpretation Comments HEMOGLOBIN A1c (test code = 01290) 11.9 % HEMOGLOBIN [id number] 00:00:00 Test Item Value Reference Range Interpretation Comments HEMOGLOBIN A1c (test code = 29941) 11.9 % LIPID [id number] 00:00:00 Test Item Value Reference Range Interpretation Comments CHOLESTEROL (test code = 2210) 176 MG/DL TRIGLYCERIDES (test code = 2232) 614 MG/DL HDL CHOLESTEROL (test code = 28 MG/DL 2219) CALC LDL CHOL (test code = 2237) (NOTE) MG/DL RISK RATIO LDL/HDL (test code = 2.79 RATIO 2238) LIPID [id number] 00:00:00 Test Item Value Reference Range Interpretation Comments CHOLESTEROL (test code = 2210) 176 MG/DL TRIGLYCERIDES (test code = 2232) 614 MG/DL HDL CHOLESTEROL (test code = 28 MG/DL 2220) CALC LDL CHOL (test code = 2237) (NOTE) MG/DL RISK RATIO LDL/HDL (test code = 2.79 RATIO 2238) COMPREHENSIVE METABOLIC [id number] 00:00:00 Test Item Value Reference Range Interpretation Comments GLUCOSE (test code = 2217) 411 MG/DL BUN (test code = 2208) 24 MG/DL CREATININE (test code = 2214) 1.13 MG/DL eGFR (2020 CKD-EPI) (test code 62 ML/MIN/1.73 = 16101) CALC BUN/CREAT (test code = 21 RATIO [...] code = 2219) 49 U/L COMPREHENSIVE METABOLIC [id number] 00:00:00 Test Item Value Reference Range Interpretation Comments GLUCOSE (test code = 2217) 411 MG/DL BUN (test code = 2208) 24 MG/DL CREATININE (test code = 2214) 1.13 MG/DL eGFR (2020 CKD-EPI) (test code 62 ML/MIN/1.73 = 01560) CALC BUN/CREAT (test code = 21 RATIO [...] (test code = 2219) 49 U/L HEMOGLOBIN [id number] 00:00:00 Test Item Value Reference Range Interpretation Comments HEMOGLOBIN A1c (test code = 42867) 11.9 % HEMOGLOBIN [id number] 00:00:00 Test Item Value Reference Range Interpretation Comments HEMOGLOBIN A1c (test code = 99210) 11.9 % HEMOGLOBIN [id number] 00:00:00 Test Item Value Reference Range Interpretation Comments HEMOGLOBIN A1c (test code = 75940) 11.9 % LIPID [id number] 00:00:00 Test Item Value Reference Range Interpretation Comments CHOLESTEROL (test code = 2210) 176 MG/DL TRIGLYCERIDES (test code = 2232) 614 MG/DL HDL CHOLESTEROL (test code = 28 MG/DL 0) CALC LDL CHOL (test code = 2237) (NOTE) MG/DL RISK RATIO LDL/HDL (test code = 2.79 RATIO 2238) LIPID [id number] 00:00:00 Test Item Value Reference Range Interpretation Comments CHOLESTEROL (test code = 2210) 176 MG/DL TRIGLYCERIDES (test code = 2232) 614 MG/DL HDL CHOLESTEROL (test code = 28 MG/DL 2220) CALC LDL CHOL (test code = 2237) (NOTE) MG/DL RISK RATIO LDL/HDL (test code = 2.79 RATIO 2238) COMPREHENSIVE METABOLIC [id number] 00:00:00 Test Item Value Reference Range Interpretation Comments GLUCOSE (test code = 2217) 411 MG/DL BUN (test code = 2208) 24 MG/DL CREATININE (test code = 2214) 1.13 MG/DL eGFR (2020 CKD-EPI) (test code 62 ML/MIN/1.73 = 90873) CALC BUN/CREAT (test code = 21 RATIO [...] code = 2219) 49 U/L COMPREHENSIVE METABOLIC [id number] 00:00:00 Test Item Value Reference Range Interpretation Comments GLUCOSE (test code = 2217) 411 MG/DL BUN (test code = 2208) 24 MG/DL CREATININE (test code = 2214) 1.13 MG/DL eGFR (2020 CKD-EPI) (test code 62 ML/MIN/1.73 = 52238) CALC BUN/CREAT (test code = 21 RATIO [...] (test code = 2219) 49 U/L HEMOGLOBIN [id number] 00:00:00 Test Item Value Reference Range Interpretation Comments HEMOGLOBIN A1c (test code = 19625) 11.9 % HEMOGLOBIN [id number] 00:00:00 Test Item Value Reference Range Interpretation Comments HEMOGLOBIN A1c (test code = 59674) 11.9 % HEMOGLOBIN [id number] 00:00:00 Test Item Value Reference Range Interpretation Comments HEMOGLOBIN A1c (test code = 11416) 11.9 % LIPID [id number] 00:00:00 Test Item Value Reference Range Interpretation Comments CHOLESTEROL (test code = 2210) 176 MG/DL TRIGLYCERIDES (test code = 2232) 614 MG/DL HDL CHOLESTEROL (test code = 28 MG/DL 2220) CALC LDL CHOL (test code = 2237) (NOTE) MG/DL RISK RATIO LDL/HDL (test code = 2.79 RATIO 2238) LIPID [id number] 00:00:00 Test Item Value Reference Range Interpretation Comments CHOLESTEROL (test code = 2210) 176 MG/DL TRIGLYCERIDES (test code = 2232) 614 MG/DL HDL CHOLESTEROL (test code = 28 MG/DL 2220) CALC LDL CHOL (test code = 2237) (NOTE) MG/DL RISK RATIO LDL/HDL (test code = 2.79 RATIO 2238) CREATINE [id number] 13:35:13 Test Item Value Reference Range Interpretation Comments CK (test code = 8883187733) 71 U/L 33-194 Lab Interpretation (test code = Normal 15682-6) [facility] GLUCOSE (AUTOMATED)2021-06-18 13:07:35 Test Item Value Reference Range Interpretation Comments POCT GLU (test code = 2173752701) 351 mg/dL 70-110 H Lab Interpretation (test code = Abnormal 29151-7) [facility] GLUCOSE(AGE >30DAYS)2021-06-18 13:04:00 Test Item Value Reference Range Interpretation Comments POCT Glu (age>30days) (test code = 351 mg/dL 70-110 A 3342) Lab Interpretation (test code = Abnormal 55144-1) [facility]. Metabolic Panel (06295)2021-06-18 11:14:20 Test Item Value Reference Range Interpretation Comments NA (test code = 134 mmol/L 135-145 L 7332332892) K (test code = 4.6 mmol/L 3.5-5.0 9469180192) CL (test code = 103 mmol/L 98-108 7335308415) CO2 TOTAL (test code = 18 mmol/L 23-31 L 2558898718) AGAP (test code = 2-16 0980081000) BUN (test code = 30 mg/dL 7-23 H 0706773595) GLUCOSE (test code = 390 mg/dL 70-110 H 0021422687) CREATININE (test code = 0.93 mg/dL 0.50-1.04 9943533377) TOTAL BILI (test code = 0.4 mg/dL 0.1-1.1 9183140172) CALCIUM (test code = 10.0 mg/dL 8.6-10.6 8725390221) T PROTEIN (test code = 7.6 g/dL 6.3-8.2 5103135692) ALBUMIN (test code = 4.5 g/dL 3.5-5.0 5631727290) ALK PHOS (test code = 51 U/L 34-122 1067429276) ALTv (test code = 34 U/L 5-35 2-6) AST(SGOT) (test code = 26 U/L 13-40 9848594746) eGFR (test code = mL/min/1.73m2 9300213276) CALVIN (test code = CALVIN) Association of [...] tests). Lab Interpretation Abnormal (test code = 36233-6) [facility] [id number] 11:06:00 Test Item Value Reference Range Interpretation Comments POCT PREG (test code = 1605) neg On board controls acceptable with yes C Line (test code = 3574) POCT PREG LOT # (test code = 3575) [id number] POCT PREG TEST DATE (test 08/10/2022 code = 3576) Lab Interpretation (test code = Normal 84411-2) [facility] with [id number] 11:00:39 Test Item Value Reference Range Interpretation Comments WBC (test code = See_Comment [Automated 1990-2) message] The sy stem which generated this result transmitted reference range : 4.30 - 11.10 10*3/?L. The reference range was not used to interpret this result as normal/abnormal . RBC (test code = See_Comment [Automated 279-8) message] The sy stem which generated this [...] RDW-SD (test code = 40.1 fL 39.0-49.9 73200-3) RDW-CV (test code = 13.2 % 12.0-15.5 788-0) PLT (test code = See_Comment [Automated 777-3) message] The sy stem which generated this result transmitted reference range : 166 - 358 10*3/ ?L. The reference r doretha was not used to interpret this result as normal/abnormal . MPV (test code = 9.5 fL 9.5-12.9 64113-0) NRBC/100 WBC (test See_Comment [Automat ed code = 3069465453) message] The system which generated this result transmitted reference range : 0.0 - 10.0 /100 WBCs. The refer ence range was not u sed to interpret th is result as normal/abnormal . NRBC x10^3 (test code <0.01 See_Comment [Auto mated = 6025947543) message] The s ystem which generated this result transmitted reference range : 10*3/?L. The reference range was not used to interpret this result as normal/abnormal . GRAN MAT (NEUT) % 43.7 % (test code = 770-8) IMM GRAN % (test code 0.70 % = 4931660742) LYMPH % (test code = 41.9 % 736-9) MONO % (test code = 8.8 % 5905-5) EOS % (test code = 3.6 % 713-8) BASO % (test code = 1.3 % 706-2) GRAN MAT x10^3(ANC) 2.68 10*3/uL 1.88-7.09 (test code = 6720352680) IMM GRAN x10^3 (test 0.04 10*3/uL 0.00-0.06 code = 2768243024) LYMPH x10^3 (test code 2.57 10*3/uL 1.32-3.29 = 731-0) MONO x10^3 (test code 0.54 10*3/uL 0.33-0.92 = 742-7) EOS x10^3 (test code = 0.22 10*3/uL 0.03-0.39 711-2) BASO x10^3 (test code 0.08 10*3/uL 0.01-0.07 H = 704-7) Lab Interpretation Abnormal (test code = 03371-7) [facility] [id number] 00:00:00 Test Item Value Reference Range Interpretation Comments ANDIE SPECIES (test code = 99462) NEGATIVE G. VAGINALIS (test code = 10825) NEGATIVE T. VAGINALIS (test code = 06508) NEGATIVE VAGINAL PATHOGENS DNA [id number] 00:00:00 Test Item Value Reference Range Interpretation Comments ANDIE SPECIES (test code = 24847) NEGATIVE G. VAGINALIS (test code = 63851) NEGATIVE T. VAGINALIS (test code = 61803) NEGATIVE VAGINAL PATHOGENS DNA [id number] 00:00:00 Test Item Value Reference Range Interpretation Comments ANDIE SPECIES (test code = 70534) NEGATIVE G. VAGINALIS (test code = 28034) NEGATIVE T. VAGINALIS (test code = 26095) NEGATIVE VAGINAL PATHOGENS DNA [id number] 00:00:00 Test Item Value Reference Range Interpretation Comments ANDIE SPECIES (test code = 28820) NEGATIVE G. VAGINALIS (test code = 76894) NEGATIVE T. VAGINALIS (test code = 56077) NEGATIVE VAGINAL PATHOGENS DNA [id number] 00:00:00 Test Item Value Reference Range Interpretation Comments ANDIE SPECIES (test code = 22762) NEGATIVE G. VAGINALIS (test code = 35151) NEGATIVE T. VAGINALIS (test code = 66005) NEGATIVE VAGINAL PATHOGENS DNA [id number] 00:00:00 Test Item Value Reference Range Interpretation Comments ANDIE SPECIES (test code = 29543) NEGATIVE G. VAGINALIS (test code = 93006) NEGATIVE T. VAGINALIS (test code = 00958) NEGATIVE VAGINAL PATHOGENS DNA [id number] 00:00:00 Test Item Value Reference Range Interpretation Comments ANDIE SPECIES (test code = 19250) NEGATIVE G. VAGINALIS (test code = 40892) NEGATIVE T. VAGINALIS (test code = 32482) NEGATIVE VAGINAL PATHOGENS DNA [id number] 00:00:00 Test Item Value Reference Range Interpretation Comments ANDIE SPECIES (test code = 35472) NEGATIVE G. VAGINALIS (test code = 97840) NEGATIVE T. VAGINALIS (test code = 48841) NEGATIVE VAGINAL PATHOGENS DNA [id number] 00:00:00 Test Item Value Reference Range Interpretation Comments ANDIE SPECIES (test code = 96358) NEGATIVE G. VAGINALIS (test code = 15424) NEGATIVE T. VAGINALIS (test code = 73311) NEGATIVE VAGINAL PATHOGENS DNA [id number] 00:00:00 Test Item Value Reference Range Interpretation Comments ANDIE SPECIES (test code = 17377) NEGATIVE G. VAGINALIS (test code = 79195) NEGATIVE T. VAGINALIS (test code = 24965) NEGATIVE VAGINAL PATHOGENS DNA [id number] 00:00:00 Test Item Value Reference Range Interpretation Comments ANDIE SPECIES (test code = 21814) NEGATIVE G. VAGINALIS (test code = 03030) NEGATIVE T. VAGINALIS (test code = 00863) NEGATIVE VAGINAL PATHOGENS DNA [id number] 00:00:00 Test Item Value Reference Range Interpretation Comments ANDIE SPECIES (test code = 29847) NEGATIVE G. VAGINALIS (test code = 60690) NEGATIVE T. VAGINALIS (test code = 93903) NEGATIVE VAGINAL PATHOGENS DNA [id number] 00:00:00 Test Item Value Reference Range Interpretation Comments ANDIE SPECIES (test code = 19145) NEGATIVE G. VAGINALIS (test code = 10492) NEGATIVE T. VAGINALIS (test code = 15963) NEGATIVE VAGINAL PATHOGENS DNA [id number] 00:00:00 Test Item Value Reference Range Interpretation Comments ANDIE SPECIES (test code = 95312) NEGATIVE G. VAGINALIS (test code = 16365) NEGATIVE T. VAGINALIS (test code = 91348) NEGATIVE VAGINAL PATHOGENS DNA [id number] 00:00:00 Test Item Value Reference Range Interpretation Comments ANDIE SPECIES (test code = 19335) NEGATIVE G. VAGINALIS (test code = 85246) NEGATIVE T. VAGINALIS (test code = 10953) NEGATIVE VAGINAL PATHOGENS DNA [id number] 00:00:00 Test Item Value Reference Range Interpretation Comments ANDIE SPECIES (test code = 25686) NEGATIVE G. VAGINALIS (test code = 73491) NEGATIVE T. VAGINALIS (test code = 95931) NEGATIVE VAGINAL PATHOGENS DNA [id number] 00:00:00 Test Item Value Reference Range Interpretation Comments ANDIE SPECIES (test code = 18317) NEGATIVE G. VAGINALIS (test code = 07504) NEGATIVE T. VAGINALIS (test code = 90916) NEGATIVE VAGINAL PATHOGENS DNA [id number] 00:00:00 Test Item Value Reference Range Interpretation Comments ANDIE SPECIES (test code = 53222) NEGATIVE G. VAGINALIS (test code = 51315) NEGATIVE T. VAGINALIS (test code = ) NEGATIVE VAGINAL PATHOGENS DNA [id number] 00:00:00 Test Item Value Reference Range Interpretation Comments ANDIE SPECIES (test code = 37451) NEGATIVE G. VAGINALIS (test code = 99793) NEGATIVE T. VAGINALIS (test code = 04615) NEGATIVE VAGINAL PATHOGENS DNA [id number] 00:00:00 Test Item Value Reference Range Interpretation Comments ANDIE SPECIES (test code = 33576) NEGATIVE G. VAGINALIS (test code = 36329) NEGATIVE T. VAGINALIS (test code = 20893) NEGATIVE VAGINAL PATHOGENS DNA [id number] 00:00:00 Test Item Value Reference Range Interpretation Comments ANDIE SPECIES (test code = ) NEGATIVE G. VAGINALIS (test code = 51674) NEGATIVE T. VAGINALIS (test code = 71971) NEGATIVE SARS-CoV-2 (COVID-19) by RT-PCR (HIGH RISK)2021-02-26 00:00:00 Test Item Value Reference Range Interpretation Comments SARS-CoV-2 INTERPRETATION (test NEGATIVE code = 16531) SOURCE (test code = 78765) NOT SPECIFIED SARS-CoV-2 (COVID-19) by RT-PCR (HIGH RISK)2021-02-26 00:00:00 Test Item Value Reference Range Interpretation Comments SARS-CoV-2 INTERPRETATION (test NEGATIVE code = 90441) SOURCE (test code = 03393) NOT SPECIFIED SARS-CoV-2 (COVID-19) by RT-PCR (HIGH RISK)2021-02-26 00:00:00 Test Item Value Reference Range Interpretation Comments SARS-CoV-2 INTERPRETATION (test NEGATIVE code = 86414) SOURCE (test code = 25344) NOT SPECIFIED SARS-CoV-2 (COVID-19) by RT-PCR (HIGH RISK)2021-02-26 00:00:00 Test Item Value Reference Range Interpretation Comments SARS-CoV-2 INTERPRETATION (test NEGATIVE code = 12191) SOURCE (test code = 87376) NOT SPECIFIED SARS-CoV-2 (COVID-19) by RT-PCR (HIGH RISK)2021-02-26 00:00:00 Test Item Value Reference Range Interpretation Comments SARS-CoV-2 INTERPRETATION (test NEGATIVE code = 19567) SOURCE (test code = 20566) NOT SPECIFIED SARS-CoV-2 (COVID-19) by RT-PCR (HIGH RISK)2021-02-26 00:00:00 Test Item Value Reference Range Interpretation Comments SARS-CoV-2 INTERPRETATION (test NEGATIVE code = 54015) SOURCE (test code = 77130) NOT SPECIFIED SARS-CoV-2 (COVID-19) by RT-PCR (HIGH RISK)2021-02-26 00:00:00 Test Item Value Reference Range Interpretation Comments SARS-CoV-2 INTERPRETATION (test NEGATIVE code = 57643) SOURCE (test code = 48713) NOT SPECIFIED SARS-CoV-2 (COVID-19) by RT-PCR (HIGH RISK)2021-02-26 00:00:00 Test Item Value Reference Range Interpretation Comments SARS-CoV-2 INTERPRETATION (test NEGATIVE code = 81024) SOURCE (test code = 92435) NOT SPECIFIED SARS-CoV-2 (COVID-19) by RT-PCR (HIGH RISK)2021-02-26 00:00:00 Test Item Value Reference Range Interpretation Comments SARS-CoV-2 INTERPRETATION (test NEGATIVE code = 95336) SOURCE (test code = 85243) NOT SPECIFIED SARS-CoV-2 (COVID-19) by RT-PCR (HIGH RISK)2021-02-26 00:00:00 Test Item Value Reference Range Interpretation Comments SARS-CoV-2 INTERPRETATION (test NEGATIVE code = 15594) SOURCE (test code = 08181) NOT SPECIFIED SARS-CoV-2 (COVID-19) by RT-PCR (HIGH RISK)2021-02-26 00:00:00 Test Item Value Reference Range Interpretation Comments SARS-CoV-2 INTERPRETATION (test NEGATIVE code = 78424) SOURCE (test code = 53235) NOT SPECIFIED SARS-CoV-2 (COVID-19) by RT-PCR (HIGH RISK)2021-02-26 00:00:00 Test Item Value Reference Range Interpretation Comments SARS-CoV-2 INTERPRETATION (test NEGATIVE code = 27315) SOURCE (test code = 04282) NOT SPECIFIED SARS-CoV-2 (COVID-19) by RT-PCR (HIGH RISK)2021-02-26 00:00:00 Test Item Value Reference Range Interpretation Comments SARS-CoV-2 INTERPRETATION (test NEGATIVE code = 33365) SOURCE (test code = 37567) NOT SPECIFIED SARS-CoV-2 (COVID-19) by RT-PCR (HIGH RISK)2021-02-26 00:00:00 Test Item Value Reference Range Interpretation Comments SARS-CoV-2 INTERPRETATION (test NEGATIVE code = 54894) SOURCE (test code = 10154) NOT SPECIFIED SARS-CoV-2 (COVID-19) by RT-PCR (HIGH RISK)2021-02-26 00:00:00 Test Item Value Reference Range Interpretation Comments SARS-CoV-2 INTERPRETATION (test NEGATIVE code = 12175) SOURCE (test code = 70742) NOT SPECIFIED SARS-CoV-2 (COVID-19) by RT-PCR (HIGH RISK)2021-02-26 00:00:00 Test Item Value Reference Range Interpretation Comments SARS-CoV-2 INTERPRETATION (test NEGATIVE code = 50199) SOURCE (test code = 03242) NOT SPECIFIED SARS-CoV-2 (COVID-19) by RT-PCR (HIGH RISK)2021-02-26 00:00:00 Test Item Value Reference Range Interpretation Comments SARS-CoV-2 INTERPRETATION (test NEGATIVE code = 81149) SOURCE (test code = 24755) NOT SPECIFIED SARS-CoV-2 (COVID-19) by RT-PCR (HIGH RISK)2021-02-26 00:00:00 Test Item Value Reference Range Interpretation Comments SARS-CoV-2 INTERPRETATION (test NEGATIVE code = 56160) SOURCE (test code = 07448) NOT SPECIFIED SARS-CoV-2 (COVID-19) by RT-PCR (HIGH RISK)2021-02-26 00:00:00 Test Item Value Reference Range Interpretation Comments SARS-CoV-2 INTERPRETATION (test NEGATIVE code = 13274) SOURCE (test code = 44275) NOT SPECIFIED SARS-CoV-2 (COVID-19) by RT-PCR (HIGH RISK)2021-02-26 00:00:00 Test Item Value Reference Range Interpretation Comments SARS-CoV-2 INTERPRETATION (test NEGATIVE code = 37527) SOURCE (test code = 87973) NOT SPECIFIED SARS-CoV-2 (COVID-19) by RT-PCR (HIGH RISK)2021-02-26 00:00:00 Test Item Value Reference Range Interpretation Comments SARS-CoV-2 INTERPRETATION (test NEGATIVE code = 58895) SOURCE (test code = 07435) NOT SPECIFIED CULTURE, URINE [ADDED]2021-02-13 00:00:00 Test Item Value Reference Range Interpretation Comments CULTURE, URINE (test SPECIMEN NUMBER: code = 58701) [id number] CULTURE, URINE [ADDED]2021-02-13 00:00:00 Test Item Value Reference Range Interpretation Comments CULTURE, URINE (test SPECIMEN NUMBER: code = 93778) [id number] CULTURE, URINE [ADDED]2021-02-13 00:00:00 Test Item Value Reference Range Interpretation Comments CULTURE, URINE (test SPECIMEN NUMBER: code = 41942) [id number] CULTURE, URINE [ADDED]2021-02-13 00:00:00 Test Item Value Reference Range Interpretation Comments CULTURE, URINE (test SPECIMEN NUMBER: code = 84706) [id number] CULTURE, URINE [ADDED]2021-02-13 00:00:00 Test Item Value Reference Range Interpretation Comments CULTURE, URINE (test SPECIMEN NUMBER: code = 86990) [id number] CULTURE, URINE [ADDED]2021-02-13 00:00:00 Test Item Value Reference Range Interpretation Comments CULTURE, URINE (test SPECIMEN NUMBER: code = 36553) [id number] CULTURE, URINE [ADDED]2021-02-13 00:00:00 Test Item Value Reference Range Interpretation Comments CULTURE, URINE (test SPECIMEN NUMBER: code = 63368) [id number] CULTURE, URINE [ADDED]2021-02-13 00:00:00 Test Item Value Reference Range Interpretation Comments CULTURE, URINE (test SPECIMEN NUMBER: code = 54439) [id number] CULTURE, URINE [ADDED]2021-02-13 00:00:00 Test Item Value Reference Range Interpretation Comments CULTURE, URINE (test SPECIMEN NUMBER: code = 41182) [id number] CULTURE, URINE [ADDED]2021-02-13 00:00:00 Test Item Value Reference Range Interpretation Comments CULTURE, URINE (test SPECIMEN NUMBER: code = 79093) [id number] CULTURE, URINE [ADDED]2021-02-13 00:00:00 Test Item Value Reference Range Interpretation Comments CULTURE, URINE (test SPECIMEN NUMBER: code = 51197) [id number] CULTURE, URINE [ADDED]2021-02-13 00:00:00 Test Item Value Reference Range Interpretation Comments CULTURE, URINE (test SPECIMEN NUMBER: code = 50211) [id number] CULTURE, URINE [ADDED]2021-02-13 00:00:00 Test Item Value Reference Range Interpretation Comments CULTURE, URINE (test SPECIMEN NUMBER: code = 62322) [id number] CULTURE, URINE [ADDED]2021-02-13 00:00:00 Test Item Value Reference Range Interpretation Comments CULTURE, URINE (test SPECIMEN NUMBER: code = 01000) [id number] CULTURE, URINE [ADDED]2021-02-13 00:00:00 Test Item Value Reference Range Interpretation Comments CULTURE, URINE (test SPECIMEN NUMBER: code = 96566) [id number] CULTURE, URINE [ADDED]2021-02-13 00:00:00 Test Item Value Reference Range Interpretation Comments CULTURE, URINE (test SPECIMEN NUMBER: code = 72002) [id number] CULTURE, URINE [ADDED]2021-02-13 00:00:00 Test Item Value Reference Range Interpretation Comments CULTURE, URINE (test SPECIMEN NUMBER: code = 41003) [id number] CULTURE, URINE [ADDED]2021-02-13 00:00:00 Test Item Value Reference Range Interpretation Comments CULTURE, URINE (test SPECIMEN NUMBER: code = 63727) [id number] CULTURE, URINE [ADDED]2021-02-13 00:00:00 Test Item Value Reference Range Interpretation Comments CULTURE, URINE (test SPECIMEN NUMBER: code = 07795) [id number] CULTURE, URINE [ADDED]2021-02-13 00:00:00 Test Item Value Reference Range Interpretation Comments CULTURE, URINE (test SPECIMEN NUMBER: code = 62036) [id number] CULTURE, URINE [ADDED]2021-02-13 00:00:00 Test Item Value Reference Range Interpretation Comments CULTURE, URINE (test SPECIMEN NUMBER: code = 74454) [id number] VAGINAL PATHOGENS DNA [id number] 00:00:00 Test Item Value Reference Range Interpretation Comments ANDIE SPECIES (test code = ) NEGATIVE G. VAGINALIS (test code = 56302) POSITIVE T. VAGINALIS (test code = 00631) NEGATIVE VAGINAL PATHOGENS DNA [id number] 00:00:00 Test Item Value Reference Range Interpretation Comments ANDIE SPECIES (test code = 00794) NEGATIVE G. VAGINALIS (test code = 54015) POSITIVE T. VAGINALIS (test code = 32932) NEGATIVE VAGINAL PATHOGENS DNA [id number] 00:00:00 Test Item Value Reference Range Interpretation Comments ANDIE SPECIES (test code = 92943) NEGATIVE G. VAGINALIS (test code = 15206) POSITIVE T. VAGINALIS (test code = 11750) NEGATIVE VAGINAL PATHOGENS DNA [id number] 00:00:00 Test Item Value Reference Range Interpretation Comments ANDIE SPECIES (test code = 62428) NEGATIVE G. VAGINALIS (test code = 24354) POSITIVE T. VAGINALIS (test code = 94284) NEGATIVE VAGINAL PATHOGENS DNA [id number] 00:00:00 Test Item Value Reference Range Interpretation Comments ANDIE SPECIES (test code = 62076) NEGATIVE G. VAGINALIS (test code = 73302) POSITIVE T. VAGINALIS (test code = 61914) NEGATIVE VAGINAL PATHOGENS DNA [id number] 00:00:00 Test Item Value Reference Range Interpretation Comments ANDIE SPECIES (test code = 98233) NEGATIVE G. VAGINALIS (test code = 87196) POSITIVE T. VAGINALIS (test code = 25428) NEGATIVE VAGINAL PATHOGENS DNA [id number] 00:00:00 Test Item Value Reference Range Interpretation Comments ANDIE SPECIES (test code = 74309) NEGATIVE G. VAGINALIS (test code = 97008) POSITIVE T. VAGINALIS (test code = 51674) NEGATIVE VAGINAL PATHOGENS DNA [id number] 00:00:00 Test Item Value Reference Range Interpretation Comments ANDIE SPECIES (test code = 29152) NEGATIVE G. VAGINALIS (test code = 96959) POSITIVE T. VAGINALIS (test code = 10098) NEGATIVE VAGINAL PATHOGENS DNA [id number] 00:00:00 Test Item Value Reference Range Interpretation Comments ANDIE SPECIES (test code = 37054) NEGATIVE G. VAGINALIS (test code = 37676) POSITIVE T. VAGINALIS (test code = 49304) NEGATIVE VAGINAL PATHOGENS DNA [id number] 00:00:00 Test Item Value Reference Range Interpretation Comments ANDIE SPECIES (test code = 52710) NEGATIVE G. VAGINALIS (test code = 99250) POSITIVE T. VAGINALIS (test code = 21470) NEGATIVE VAGINAL PATHOGENS DNA [id number] 00:00:00 Test Item Value Reference Range Interpretation Comments ANDIE SPECIES (test code = 25378) NEGATIVE G. VAGINALIS (test code = 09856) POSITIVE T. VAGINALIS (test code = 74100) NEGATIVE VAGINAL PATHOGENS DNA [id number] 00:00:00 Test Item Value Reference Range Interpretation Comments ANDIE SPECIES (test code = 33804) NEGATIVE G. VAGINALIS (test code = 72834) POSITIVE T. VAGINALIS (test code = 79608) NEGATIVE VAGINAL PATHOGENS DNA [id number] 00:00:00 Test Item Value Reference Range Interpretation Comments ANDIE SPECIES (test code = 92229) NEGATIVE G. VAGINALIS (test code = 30986) POSITIVE T. VAGINALIS (test code = 72133) NEGATIVE VAGINAL PATHOGENS DNA [id number] 00:00:00 Test Item Value Reference Range Interpretation Comments ANDIE SPECIES (test code = 36659) NEGATIVE G. VAGINALIS (test code = 37813) POSITIVE T. VAGINALIS (test code = 95612) NEGATIVE VAGINAL PATHOGENS DNA [id number] 00:00:00 Test Item Value Reference Range Interpretation Comments ANDIE SPECIES (test code = 94651) NEGATIVE G. VAGINALIS (test code = 10648) POSITIVE T. VAGINALIS (test code = 70547) NEGATIVE VAGINAL PATHOGENS DNA [id number] 00:00:00 Test Item Value Reference Range Interpretation Comments ANDIE SPECIES (test code = ) NEGATIVE G. VAGINALIS (test code = 28156) POSITIVE T. VAGINALIS (test code = 65955) NEGATIVE VAGINAL PATHOGENS DNA [id number] 00:00:00 Test Item Value Reference Range Interpretation Comments ANDIE SPECIES (test code = ) NEGATIVE G. VAGINALIS (test code = 96831) POSITIVE T. VAGINALIS (test code = 67207) NEGATIVE VAGINAL PATHOGENS DNA [id number] 00:00:00 Test Item Value Reference Range Interpretation Comments ANDIE SPECIES (test code = 05621) NEGATIVE G. VAGINALIS (test code = 63203) POSITIVE T. VAGINALIS (test code = 23690) NEGATIVE VAGINAL PATHOGENS DNA [id number] 00:00:00 Test Item Value Reference Range Interpretation Comments ANDIE SPECIES (test code = 49480) NEGATIVE G. VAGINALIS (test code = 45842) POSITIVE T. VAGINALIS (test code = 01562) NEGATIVE VAGINAL PATHOGENS DNA [id number] 00:00:00 Test Item Value Reference Range Interpretation Comments ANDIE SPECIES (test code = 03408) NEGATIVE G. VAGINALIS (test code = 14187) POSITIVE T. VAGINALIS (test code = 09497) NEGATIVE VAGINAL PATHOGENS DNA [id number] 00:00:00 Test Item Value Reference Range Interpretation Comments ANDIE SPECIES (test code = 23464) NEGATIVE G. VAGINALIS (test code = 55406) POSITIVE T. VAGINALIS (test code = 85454) NEGATIVE BLOOD GROUP (ABO) AND RH [id number] 00:00:00 Test Item Value Reference Range Interpretation Comments BLOOD TYPE AND RH (test code = A POSITIVE 3901) BLOOD GROUP (ABO) AND RH [id number] 00:00:00 Test Item Value Reference Range Interpretation Comments BLOOD TYPE AND RH (test code = A POSITIVE 3901) BLOOD GROUP (ABO) AND RH [id number] 00:00:00 Test Item Value Reference Range Interpretation Comments BLOOD TYPE AND RH (test code = A POSITIVE 3901) HEMOGLOBIN [id number] 00:00:00 Test Item Value Reference Range Interpretation Comments HEMOGLOBIN A1c (test code = 16975) 11.8 % HEMOGLOBIN [id number] 00:00:00 Test Item Value Reference Range Interpretation Comments HEMOGLOBIN A1c (test code = 63573) 11.8 % HEMOGLOBIN [id number] 00:00:00 Test Item Value Reference Range Interpretation Comments HEMOGLOBIN A1c (test code = 48411) 11.8 % BLOOD GROUP (ABO) AND RH [id number] 00:00:00 Test Item Value Reference Range Interpretation Comments BLOOD TYPE AND RH (test code = A POSITIVE 3901) BLOOD GROUP (ABO) AND RH [id number] 00:00:00 Test Item Value Reference Range Interpretation Comments BLOOD TYPE AND RH (test code = A POSITIVE 3901) BLOOD GROUP (ABO) AND RH [id number] 00:00:00 Test Item Value Reference Range Interpretation Comments BLOOD TYPE AND RH (test code = A POSITIVE 3901) HEMOGLOBIN [id number] 00:00:00 Test Item Value Reference Range Interpretation Comments HEMOGLOBIN A1c (test code = 03370) 11.8 % HEMOGLOBIN [id number] 00:00:00 Test Item Value Reference Range Interpretation Comments HEMOGLOBIN A1c (test code = 91313) 11.8 % HEMOGLOBIN [id number] 00:00:00 Test Item Value Reference Range Interpretation Comments HEMOGLOBIN A1c (test code = 95662) 11.8 % BLOOD GROUP (ABO) AND RH [id number] 00:00:00 Test Item Value Reference Range Interpretation Comments BLOOD TYPE AND RH (test code = A POSITIVE 3901) BLOOD GROUP (ABO) AND RH [id number] 00:00:00 Test Item Value Reference Range Interpretation Comments BLOOD TYPE AND RH (test code = A POSITIVE 3901) BLOOD GROUP (ABO) AND RH [id number] 00:00:00 Test Item Value Reference Range Interpretation Comments BLOOD TYPE AND RH (test code = A POSITIVE 3901) HEMOGLOBIN [id number] 00:00:00 Test Item Value Reference Range Interpretation Comments HEMOGLOBIN A1c (test code = 94826) 11.8 % HEMOGLOBIN [id number] 00:00:00 Test Item Value Reference Range Interpretation Comments HEMOGLOBIN A1c (test code = 87612) 11.8 % HEMOGLOBIN [id number] 00:00:00 Test Item Value Reference Range Interpretation Comments HEMOGLOBIN A1c (test code = 71848) 11.8 % BLOOD GROUP (ABO) AND RH [id number] 00:00:00 Test Item Value Reference Range Interpretation Comments BLOOD TYPE AND RH (test code = A POSITIVE 3901) BLOOD GROUP (ABO) AND RH [id number] 00:00:00 Test Item Value Reference Range Interpretation Comments BLOOD TYPE AND RH (test code = A POSITIVE 3901) BLOOD GROUP (ABO) AND RH [id number] 00:00:00 Test Item Value Reference Range Interpretation Comments BLOOD TYPE AND RH (test code = A POSITIVE 3901) HEMOGLOBIN [id number] 00:00:00 Test Item Value Reference Range Interpretation Comments HEMOGLOBIN A1c (test code = 60869) 11.8 % HEMOGLOBIN [id number] 00:00:00 Test Item Value Reference Range Interpretation Comments HEMOGLOBIN A1c (test code = 42053) 11.8 % HEMOGLOBIN [id number] 00:00:00 Test Item Value Reference Range Interpretation Comments HEMOGLOBIN A1c (test code = 93184) 11.8 % BLOOD GROUP (ABO) AND RH [id number] 00:00:00 Test Item Value Reference Range Interpretation Comments BLOOD TYPE AND RH (test code = A POSITIVE 3901) BLOOD GROUP (ABO) AND RH [id number] 00:00:00 Test Item Value Reference Range Interpretation Comments BLOOD TYPE AND RH (test code = A POSITIVE 3901) BLOOD GROUP (ABO) AND RH [id number] 00:00:00 Test Item Value Reference Range Interpretation Comments BLOOD TYPE AND RH (test code = A POSITIVE 3901) HEMOGLOBIN [id number] 00:00:00 Test Item Value Reference Range Interpretation Comments HEMOGLOBIN A1c (test code = 74598) 11.8 % HEMOGLOBIN [id number] 00:00:00 Test Item Value Reference Range Interpretation Comments HEMOGLOBIN A1c (test code = 87141) 11.8 % HEMOGLOBIN [id number] 00:00:00 Test Item Value Reference Range Interpretation Comments HEMOGLOBIN A1c (test code = 73702) 11.8 % BLOOD GROUP (ABO) AND RH [id number] 00:00:00 Test Item Value Reference Range Interpretation Comments BLOOD TYPE AND RH (test code = A POSITIVE 3901) BLOOD GROUP (ABO) AND RH [id number] 00:00:00 Test Item Value Reference Range Interpretation Comments BLOOD TYPE AND RH (test code = A POSITIVE 3901) BLOOD GROUP (ABO) AND RH [id number] 00:00:00 Test Item Value Reference Range Interpretation Comments BLOOD TYPE AND RH (test code = A POSITIVE 3901) HEMOGLOBIN [id number] 00:00:00 Test Item Value Reference Range Interpretation Comments HEMOGLOBIN A1c (test code = 52925) 11.8 % HEMOGLOBIN [id number] 00:00:00 Test Item Value Reference Range Interpretation Comments HEMOGLOBIN A1c (test code = 59997) 11.8 % HEMOGLOBIN [id number] 00:00:00 Test Item Value Reference Range Interpretation Comments HEMOGLOBIN A1c (test code = 90565) 11.8 % BLOOD GROUP (ABO) AND RH [id number] 00:00:00 Test Item Value Reference Range Interpretation Comments BLOOD TYPE AND RH (test code = A POSITIVE 3901) BLOOD GROUP (ABO) AND RH [id number] 00:00:00 Test Item Value Reference Range Interpretation Comments BLOOD TYPE AND RH (test code = A POSITIVE 3901) BLOOD GROUP (ABO) AND RH [id number] 00:00:00 Test Item Value Reference Range Interpretation Comments BLOOD TYPE AND RH (test code = A POSITIVE 3901) HEMOGLOBIN [id number] 00:00:00 Test Item Value Reference Range Interpretation Comments HEMOGLOBIN A1c (test code = 66196) 11.8 % BLOOD GROUP (ABO) AND RH [id number] 00:00:00 Test Item Value Reference Range Interpretation Comments BLOOD TYPE AND RH (test code = A POSITIVE 3901) HEMOGLOBIN [id number] 00:00:00 Test Item Value Reference Range Interpretation Comments HEMOGLOBIN A1c (test code = 08375) 11.8 % HEMOGLOBIN [id number] 00:00:00 Test Item Value Reference Range Interpretation Comments HEMOGLOBIN A1c (test code = 02675) 11.8 % BLOOD GROUP (ABO) AND RH [id number] 00:00:00 Test Item Value Reference Range Interpretation Comments BLOOD TYPE AND RH (test code = A POSITIVE 3901) HEMOGLOBIN [id number] 00:00:00 Test Item Value Reference Range Interpretation Comments HEMOGLOBIN A1c (test code = 43784) 11.8 % HEMOGLOBIN [id number] 00:00:00 Test Item Value Reference Range Interpretation Comments HEMOGLOBIN A1c (test code = 46674) 11.8 % BLOOD GROUP (ABO) AND RH [id number] 00:00:00 Test Item Value Reference Range Interpretation Comments BLOOD TYPE AND RH (test code = A POSITIVE 3901) BLOOD GROUP (ABO) AND RH [id number] 00:00:00 Test Item Value Reference Range Interpretation Comments BLOOD TYPE AND RH (test code = A POSITIVE 3901) BLOOD GROUP (ABO) AND RH [id number] 00:00:00 Test Item Value Reference Range Interpretation Comments BLOOD TYPE AND RH (test code = A POSITIVE 3901) HEMOGLOBIN [id number] 00:00:00 Test Item Value Reference Range Interpretation Comments HEMOGLOBIN A1c (test code = 30593) 11.8 % HEMOGLOBIN [id number] 00:00:00 Test Item Value Reference Range Interpretation Comments HEMOGLOBIN A1c (test code = 45142) 11.8 % HEMOGLOBIN [id number] 00:00:00 Test Item Value Reference Range Interpretation Comments HEMOGLOBIN A1c (test code = 82719) 11.8 % BLOOD GROUP (ABO) AND RH [id number] 00:00:00 Test Item Value Reference Range Interpretation Comments BLOOD TYPE AND RH (test code = A POSITIVE 3901) BLOOD GROUP (ABO) AND RH [id number] 00:00:00 Test Item Value Reference Range Interpretation Comments BLOOD TYPE AND RH (test code = A POSITIVE 3901) BLOOD GROUP (ABO) AND RH [id number] 00:00:00 Test Item Value Reference Range Interpretation Comments BLOOD TYPE AND RH (test code = A POSITIVE 3901) HEMOGLOBIN [id number] 00:00:00 Test Item Value Reference Range Interpretation Comments HEMOGLOBIN A1c (test code = 62050) 11.8 % HEMOGLOBIN [id number] 00:00:00 Test Item Value Reference Range Interpretation Comments HEMOGLOBIN A1c (test code = 39425) 11.8 % HEMOGLOBIN [id number] 00:00:00 Test Item Value Reference Range Interpretation Comments HEMOGLOBIN A1c (test code = 49089) 11.8 % BLOOD GROUP (ABO) AND RH [id number] 00:00:00 Test Item Value Reference Range Interpretation Comments BLOOD TYPE AND RH (test code = A POSITIVE 3901) BLOOD GROUP (ABO) AND RH [id number] 00:00:00 Test Item Value Reference Range Interpretation Comments BLOOD TYPE AND RH (test code = A POSITIVE 3901) BLOOD GROUP (ABO) AND RH [id number] 00:00:00 Test Item Value Reference Range Interpretation Comments BLOOD TYPE AND RH (test code = A POSITIVE 3901) HEMOGLOBIN [id number] 00:00:00 Test Item Value Reference Range Interpretation Comments HEMOGLOBIN A1c (test code = 00622) 11.8 % HEMOGLOBIN [id number] 00:00:00 Test Item Value Reference Range Interpretation Comments HEMOGLOBIN A1c (test code = 52612) 11.8 % HEMOGLOBIN [id number] 00:00:00 Test Item Value Reference Range Interpretation Comments HEMOGLOBIN A1c (test code = 73240) 11.8 % COMPREHENSIVE METABOLIC [id number] 00:00:00 Test Item Value Reference Range Interpretation Comments GLUCOSE (test code = 2217) 277 MG/DL BUN (test code = 2208) 26 MG/DL CREATININE (test code = 2214) 1.04 MG/DL eGFR AMER. (test code 77 ML/MIN/1.73 = 46032) eGFR NON- AMER. (test 66 ML/MIN/1.73 code = 45472) CALC BUN/CREAT (test code = 25 RATIO [...] code = 2219) 51 U/L COMPREHENSIVE METABOLIC [id number] 00:00:00 Test Item Value Reference Range Interpretation Comments GLUCOSE (test code = 2217) 277 MG/DL BUN (test code = 2208) 26 MG/DL CREATININE (test code = 2214) 1.04 MG/DL eGFR AMER. (test code 77 ML/MIN/1.73 = 38535) eGFR NON- AMER. (test 66 ML/MIN/1.73 code = 05835) CALC BUN/CREAT (test code = 25 RATIO [...] (test code = 2219) 51 U/L CULTURE, [id number] 00:00:00 Test Item Value Reference Range Interpretation Comments CULTURE, URINE (test SPECIMEN NUMBER: code = 02657) [id number] CULTURE, [id number] 00:00:00 Test Item Value Reference Range Interpretation Comments CULTURE, URINE (test SPECIMEN NUMBER: code = 91250) [id number] COMPREHENSIVE METABOLIC [id number] 00:00:00 Test Item Value Reference Range Interpretation Comments GLUCOSE (test code = 2217) 277 MG/DL BUN (test code = 2208) 26 MG/DL CREATININE (test code = 2214) 1.04 MG/DL eGFR AMER. (test code 77 ML/MIN/1.73 = 76655) eGFR NON- AMER. (test 66 ML/MIN/1.73 code = 47310) CALC BUN/CREAT (test code = 25 RATIO [...] code = 2219) 51 U/L COMPREHENSIVE METABOLIC [id number] 00:00:00 Test Item Value Reference Range Interpretation Comments GLUCOSE (test code = 2217) 277 MG/DL BUN (test code = 2208) 26 MG/DL CREATININE (test code = 2214) 1.04 MG/DL eGFR AMER. (test code 77 ML/MIN/1.73 = 15701) eGFR NON- AMER. (test 66 ML/MIN/1.73 code = 20306) CALC BUN/CREAT (test code = 25 RATIO [...] (test code = 2219) 51 U/L CULTURE, [id number] 00:00:00 Test Item Value Reference Range Interpretation Comments CULTURE, URINE (test SPECIMEN NUMBER: code = 06694) [id number] CULTURE, [id number] 00:00:00 Test Item Value Reference Range Interpretation Comments CULTURE, URINE (test SPECIMEN NUMBER: code = 41472) [id number] COMPREHENSIVE METABOLIC [id number] 00:00:00 Test Item Value Reference Range Interpretation Comments GLUCOSE (test code = 2217) 277 MG/DL BUN (test code = 2208) 26 MG/DL CREATININE (test code = 2214) 1.04 MG/DL eGFR AMER. (test code 77 ML/MIN/1.73 = 11617) eGFR NON- AMER. (test 66 ML/MIN/1.73 code = 42147) CALC BUN/CREAT (test code = 25 RATIO [...] code = 2219) 51 U/L COMPREHENSIVE METABOLIC [id number] 00:00:00 Test Item Value Reference Range Interpretation Comments GLUCOSE (test code = 2217) 277 MG/DL BUN (test code = 2208) 26 MG/DL CREATININE (test code = 2214) 1.04 MG/DL eGFR AMER. (test code 77 ML/MIN/1.73 = 12141) eGFR NON- AMER. (test 66 ML/MIN/1.73 code = 85821) CALC BUN/CREAT (test code = 25 RATIO [...] (test code = 2219) 51 U/L CULTURE, [id number] 00:00:00 Test Item Value Reference Range Interpretation Comments CULTURE, URINE (test SPECIMEN NUMBER: code = 94008) [id number] CULTURE, [id number] 00:00:00 Test Item Value Reference Range Interpretation Comments CULTURE, URINE (test SPECIMEN NUMBER: code = 71010) [id number] COMPREHENSIVE METABOLIC [id number] 00:00:00 Test Item Value Reference Range Interpretation Comments GLUCOSE (test code = 2217) 277 MG/DL BUN (test code = 2208) 26 MG/DL CREATININE (test code = 2214) 1.04 MG/DL eGFR AMER. (test code 77 ML/MIN/1.73 = 45892) eGFR NON- AMER. (test 66 ML/MIN/1.73 code = 62215) CALC BUN/CREAT (test code = 25 RATIO [...] code = 2219) 51 U/L COMPREHENSIVE METABOLIC [id number] 00:00:00 Test Item Value Reference Range Interpretation Comments GLUCOSE (test code = 2217) 277 MG/DL BUN (test code = 2208) 26 MG/DL CREATININE (test code = 2214) 1.04 MG/DL eGFR AMER. (test code 77 ML/MIN/1.73 = 96418) eGFR NON- AMER. (test 66 ML/MIN/1.73 code = 38022) CALC BUN/CREAT (test code = 25 RATIO [...] (test code = 2219) 51 U/L CULTURE, [id number] 00:00:00 Test Item Value Reference Range Interpretation Comments CULTURE, URINE (test SPECIMEN NUMBER: code = 15499) [id number] CULTURE, [id number] 00:00:00 Test Item Value Reference Range Interpretation Comments CULTURE, URINE (test SPECIMEN NUMBER: code = 90020) [id number] COMPREHENSIVE METABOLIC [id number] 00:00:00 Test Item Value Reference Range Interpretation Comments GLUCOSE (test code = 2217) 277 MG/DL BUN (test code = 2208) 26 MG/DL CREATININE (test code = 2214) 1.04 MG/DL eGFR AMER. (test code 77 ML/MIN/1.73 = 15372) eGFR NON- AMER. (test 66 ML/MIN/1.73 code = 77336) CALC BUN/CREAT (test code = 25 RATIO [...] code = 2219) 51 U/L COMPREHENSIVE METABOLIC [id number] 00:00:00 Test Item Value Reference Range Interpretation Comments GLUCOSE (test code = 2217) 277 MG/DL BUN (test code = 2208) 26 MG/DL CREATININE (test code = 2214) 1.04 MG/DL eGFR AMER. (test code 77 ML/MIN/1.73 = 93160) eGFR NON- AMER. (test 66 ML/MIN/1.73 code = 87875) CALC BUN/CREAT (test code = 25 RATIO [...] (test code = 2219) 51 U/L CULTURE, [id number] 00:00:00 Test Item Value Reference Range Interpretation Comments CULTURE, URINE (test SPECIMEN NUMBER: code = 22868) [id number] CULTURE, [id number] 00:00:00 Test Item Value Reference Range Interpretation Comments CULTURE, URINE (test SPECIMEN NUMBER: code = 38184) [id number] COMPREHENSIVE METABOLIC [id number] 00:00:00 Test Item Value Reference Range Interpretation Comments GLUCOSE (test code = 2217) 277 MG/DL BUN (test code = 2208) 26 MG/DL CREATININE (test code = 2214) 1.04 MG/DL eGFR AMER. (test code 77 ML/MIN/1.73 = 11655) eGFR NON- AMER. (test 66 ML/MIN/1.73 code = 83710) CALC BUN/CREAT (test code = 25 RATIO [...] code = 2219) 51 U/L COMPREHENSIVE METABOLIC [id number] 00:00:00 Test Item Value Reference Range Interpretation Comments GLUCOSE (test code = 2217) 277 MG/DL BUN (test code = 2208) 26 MG/DL CREATININE (test code = 2214) 1.04 MG/DL eGFR AMER. (test code 77 ML/MIN/1.73 = 74980) eGFR NON- AMER. (test 66 ML/MIN/1.73 code = 61883) CALC BUN/CREAT (test code = 25 RATIO [...] (test code = 2219) 51 U/L CULTURE, [id number] 00:00:00 Test Item Value Reference Range Interpretation Comments CULTURE, URINE (test SPECIMEN NUMBER: code = 26581) [id number] CULTURE, [id number] 00:00:00 Test Item Value Reference Range Interpretation Comments CULTURE, URINE (test SPECIMEN NUMBER: code = 13236) [id number] COMPREHENSIVE METABOLIC [id number] 00:00:00 Test Item Value Reference Range Interpretation Comments GLUCOSE (test code = 2217) 277 MG/DL BUN (test code = 2208) 26 MG/DL CREATININE (test code = 2214) 1.04 MG/DL eGFR AMER. (test code 77 ML/MIN/1.73 = 37539) eGFR NON- AMER. (test 66 ML/MIN/1.73 code = 88892) CALC BUN/CREAT (test code = 25 RATIO [...] code = 2219) 51 U/L COMPREHENSIVE METABOLIC [id number] 00:00:00 Test Item Value Reference Range Interpretation Comments GLUCOSE (test code = 2217) 277 MG/DL BUN (test code = 2208) 26 MG/DL CREATININE (test code = 2214) 1.04 MG/DL eGFR AMER. (test code 77 ML/MIN/1.73 = 24138) eGFR NON- AMER. (test 66 ML/MIN/1.73 code = 17489) CALC BUN/CREAT (test code = 25 RATIO [...] (test code = 2219) 51 U/L CULTURE, [id number] 00:00:00 Test Item Value Reference Range Interpretation Comments CULTURE, URINE (test SPECIMEN NUMBER: code = 62512) [id number] CULTURE, [id number] 00:00:00 Test Item Value Reference Range Interpretation Comments CULTURE, URINE (test SPECIMEN NUMBER: code = 34793) [id number] COMPREHENSIVE METABOLIC [id number] 00:00:00 Test Item Value Reference Range Interpretation Comments GLUCOSE (test code = 2217) 277 MG/DL BUN (test code = 2208) 26 MG/DL CREATININE (test code = 2214) 1.04 MG/DL eGFR AMER. (test code 77 ML/MIN/1.73 = 68508) eGFR NON- AMER. (test 66 ML/MIN/1.73 code = 50121) CALC BUN/CREAT (test code = 25 RATIO [...] (test code = 2219) 51 U/L CULTURE, [id number] 00:00:00 Test Item Value Reference Range Interpretation Comments CULTURE, URINE (test SPECIMEN NUMBER: code = 61185) [id number] COMPREHENSIVE METABOLIC [id number] 00:00:00 Test Item Value Reference Range Interpretation Comments GLUCOSE (test code = 2217) 277 MG/DL BUN (test code = 2208) 26 MG/DL CREATININE (test code = 2214) 1.04 MG/DL eGFR AMER. (test code 77 ML/MIN/1.73 = 70328) eGFR NON- AMER. (test 66 ML/MIN/1.73 code = 77639) CALC BUN/CREAT (test code = 25 RATIO [...] code = 2219) 51 U/L COMPREHENSIVE METABOLIC [id number] 00:00:00 Test Item Value Reference Range Interpretation Comments GLUCOSE (test code = 2217) 277 MG/DL BUN (test code = 2208) 26 MG/DL CREATININE (test code = 2214) 1.04 MG/DL eGFR AMER. (test code 77 ML/MIN/1.73 = 22011) eGFR NON- AMER. (test 66 ML/MIN/1.73 code = 29950) CALC BUN/CREAT (test code = 25 RATIO [...] (test code = 2219) 51 U/L CULTURE, [id number] 00:00:00 Test Item Value Reference Range Interpretation Comments CULTURE, URINE (test SPECIMEN NUMBER: code = 87756) [id number] CULTURE, [id number] 00:00:00 Test Item Value Reference Range Interpretation Comments CULTURE, URINE (test SPECIMEN NUMBER: code = 47400) [id number] COMPREHENSIVE METABOLIC [id number] 00:00:00 Test Item Value Reference Range Interpretation Comments GLUCOSE (test code = 2217) 277 MG/DL BUN (test code = 2208) 26 MG/DL CREATININE (test code = 2214) 1.04 MG/DL eGFR AMER. (test code 77 ML/MIN/1.73 = 47709) eGFR NON- AMER. (test 66 ML/MIN/1.73 code = 38773) CALC BUN/CREAT (test code = 25 RATIO [...] code = 2219) 51 U/L COMPREHENSIVE METABOLIC [id number] 00:00:00 Test Item Value Reference Range Interpretation Comments GLUCOSE (test code = 2217) 277 MG/DL BUN (test code = 2208) 26 MG/DL CREATININE (test code = 2214) 1.04 MG/DL eGFR AMER. (test code 77 ML/MIN/1.73 = 26719) eGFR NON- AMER. (test 66 ML/MIN/1.73 code = 13623) CALC BUN/CREAT (test code = 25 RATIO [...] (test code = 2219) 51 U/L CULTURE, [id number] 00:00:00 Test Item Value Reference Range Interpretation Comments CULTURE, URINE (test SPECIMEN NUMBER: code = 27251) [id number] CULTURE, [id number] 00:00:00 Test Item Value Reference Range Interpretation Comments CULTURE, URINE (test SPECIMEN NUMBER: code = 51584) [id number] COMPREHENSIVE METABOLIC [id number] 00:00:00 Test Item Value Reference Range Interpretation Comments GLUCOSE (test code = 2217) 277 MG/DL BUN (test code = 2208) 26 MG/DL CREATININE (test code = 2214) 1.04 MG/DL eGFR AMER. (test code 77 ML/MIN/1.73 = 81594) eGFR NON- AMER. (test 66 ML/MIN/1.73 code = 87074) CALC BUN/CREAT (test code = 25 RATIO [...] code = 2219) 51 U/L COMPREHENSIVE METABOLIC [id number] 00:00:00 Test Item Value Reference Range Interpretation Comments GLUCOSE (test code = 2217) 277 MG/DL BUN (test code = 2208) 26 MG/DL CREATININE (test code = 2214) 1.04 MG/DL eGFR AMER. (test code 77 ML/MIN/1.73 = 20276) eGFR NON- AMER. (test 66 ML/MIN/1.73 code = 19121) CALC BUN/CREAT (test code = 25 RATIO [...] (test code = 2219) 51 U/L CULTURE, [id number] 00:00:00 Test Item Value Reference Range Interpretation Comments CULTURE, URINE (test SPECIMEN NUMBER: code = 75929) [id number] CULTURE, [id number] 00:00:00 Test Item Value Reference Range Interpretation Comments CULTURE, URINE (test SPECIMEN NUMBER: code = 33995) [id number] CBC W/AUTO [id number] 00:00:00 Test Item Value Reference Range Interpretation [...] NUCLEATED RBCS (test code = 0.00 K/UL 07127) CBC W/AUTO [id number] 00:00:00 Test Item Value Reference Range Interpretation [...] NUCLEATED RBCS (test code = 0.00 K/UL 44117) CBC W/AUTO [id number] 00:00:00 Test Item Value Reference Range Interpretation [...] NUCLEATED RBCS (test code = 0.00 K/UL 61892) CBC W/AUTO [id number] 00:00:00 Test Item Value Reference Range Interpretation [...] NUCLEATED RBCS (test code = 0.00 K/UL 09233) CBC W/AUTO [id number] 00:00:00 Test Item Value Reference Range Interpretation [...] NUCLEATED RBCS (test code = 0.00 K/UL 61498) CBC W/AUTO [id number] 00:00:00 Test Item Value Reference Range Interpretation [...] NUCLEATED RBCS (test code = 0.00 K/UL 06706) CBC W/AUTO [id number] 00:00:00 Test Item Value Reference Range Interpretation [...] NUCLEATED RBCS (test code = 0.00 K/UL 28516) CBC W/AUTO [id number] 00:00:00 Test Item Value Reference Range Interpretation [...] NUCLEATED RBCS (test code = 0.00 K/UL 84879) CBC W/AUTO [id number] 00:00:00 Test Item Value Reference Range Interpretation [...] NUCLEATED RBCS (test code = 0.00 K/UL 23404) CBC W/AUTO [id number] 00:00:00 Test Item Value Reference Range Interpretation [...] NUCLEATED RBCS (test code = 0.00 K/UL 87858) CBC W/AUTO [id number] 00:00:00 Test Item Value Reference Range Interpretation [...] NUCLEATED RBCS (test code = 0.00 K/UL 35748) CBC W/AUTO [id number] 00:00:00 Test Item Value Reference Range Interpretation [...] NUCLEATED RBCS (test code = 0.00 K/UL 92642) CBC W/AUTO [id number] 00:00:00 Test Item Value Reference Range Interpretation [...] NUCLEATED RBCS (test code = 0.00 K/UL 02731) CBC W/AUTO [id number] 00:00:00 Test Item Value Reference Range Interpretation [...] NUCLEATED RBCS (test code = 0.00 K/UL 00556) CBC W/AUTO [id number] 00:00:00 Test Item Value Reference Range Interpretation [...] NUCLEATED RBCS (test code = 0.00 K/UL 61228) CBC W/AUTO [id number] 00:00:00 Test Item Value Reference Range Interpretation [...] NUCLEATED RBCS (test code = 0.00 K/UL 03889) CBC W/AUTO [id number] 00:00:00 Test Item Value Reference Range Interpretation [...] NUCLEATED RBCS (test code = 0.00 K/UL 20339) CBC W/AUTO [id number] 00:00:00 Test Item Value Reference Range Interpretation [...] NUCLEATED RBCS (test code = 0.00 K/UL 45033) CBC W/AUTO [id number] 00:00:00 Test Item Value Reference Range Interpretation [...] NUCLEATED RBCS (test code = 0.00 K/UL 08313) CBC W/AUTO [id number] 00:00:00 Test Item Value Reference Range Interpretation [...] NUCLEATED RBCS (test code = 0.00 K/UL 25790) CBC W/AUTO [id number] 00:00:00 Test Item Value Reference Range Interpretation [...] NUCLEATED RBCS (test code = 0.00 K/UL 40941) CBC W/AUTO [id number] 00:00:00 Test Item Value Reference Range Interpretation [...] NUCLEATED RBCS (test code = 0.00 K/UL 88473) CBC W/AUTO [id number] 00:00:00 Test Item Value Reference Range Interpretation [...] NUCLEATED RBCS (test code = 0.00 K/UL 19222) CBC W/AUTO [id number] 00:00:00 Test Item Value Reference Range Interpretation [...] NUCLEATED RBCS (test code = 0.00 K/UL 77670) CBC W/AUTO [id number] 00:00:00 Test Item Value Reference Range Interpretation [...] NUCLEATED RBCS (test code = 0.00 K/UL 12460) CBC W/AUTO [id number] 00:00:00 Test Item Value Reference Range Interpretation [...] NUCLEATED RBCS (test code = 0.00 K/UL 53609) CBC W/AUTO [id number] 00:00:00 Test Item Value Reference Range Interpretation [...] NUCLEATED RBCS (test code = 0.00 K/UL 08416) CBC W/AUTO [id number] 00:00:00 Test Item Value Reference Range Interpretation [...] NUCLEATED RBCS (test code = 0.00 K/UL 71862) CBC W/AUTO [id number] 00:00:00 Test Item Value Reference Range Interpretation [...] NUCLEATED RBCS (test code = 0.00 K/UL 31108) CBC W/AUTO [id number] 00:00:00 Test Item Value Reference Range Interpretation [...] NUCLEATED RBCS (test code = 0.00 K/UL 31798) CBC W/AUTO [id number] 00:00:00 Test Item Value Reference Range Interpretation [...] NUCLEATED RBCS (test code = 0.00 K/UL 44591) CBC W/AUTO [id number] 00:00:00 Test Item Value Reference Range Interpretation [...] NUCLEATED RBCS (test code = 0.00 K/UL 62146) VAGINAL PATHOGENS DNA [id number] 00:00:00 Test Item Value Reference Range Interpretation Comments ANDIE SPECIES (test code = ) NEGATIVE G. VAGINALIS (test code = 46585) NEGATIVE T. VAGINALIS (test code = 01966) NEGATIVE VAGINAL PATHOGENS DNA [id number] 00:00:00 Test Item Value Reference Range Interpretation Comments ANDIE SPECIES (test code = 51548) NEGATIVE G. VAGINALIS (test code = 55865) NEGATIVE T. VAGINALIS (test code = 33795) NEGATIVE VAGINAL PATHOGENS DNA [id number] 00:00:00 Test Item Value Reference Range Interpretation Comments ANDIE SPECIES (test code = ) NEGATIVE G. VAGINALIS (test code = 36984) NEGATIVE T. VAGINALIS (test code = 10990) NEGATIVE VAGINAL PATHOGENS DNA [id number] 00:00:00 Test Item Value Reference Range Interpretation Comments ANDIE SPECIES (test code = 59885) NEGATIVE G. VAGINALIS (test code = 26295) NEGATIVE T. VAGINALIS (test code = 76725) NEGATIVE VAGINAL PATHOGENS DNA [id number] 00:00:00 Test Item Value Reference Range Interpretation Comments ANDIE SPECIES (test code = 80647) NEGATIVE G. VAGINALIS (test code = 22816) NEGATIVE T. VAGINALIS (test code = 37522) NEGATIVE VAGINAL PATHOGENS DNA [id number] 00:00:00 Test Item Value Reference Range Interpretation Comments ANDIE SPECIES (test code = 76984) NEGATIVE G. VAGINALIS (test code = 31882) NEGATIVE T. VAGINALIS (test code = 58029) NEGATIVE VAGINAL PATHOGENS DNA [id number] 00:00:00 Test Item Value Reference Range Interpretation Comments ANDIE SPECIES (test code = 91434) NEGATIVE G. VAGINALIS (test code = 36679) NEGATIVE T. VAGINALIS (test code = 30771) NEGATIVE VAGINAL PATHOGENS DNA [id number] 00:00:00 Test Item Value Reference Range Interpretation Comments ANDIE SPECIES (test code = 21985) NEGATIVE G. VAGINALIS (test code = 50186) NEGATIVE T. VAGINALIS (test code = 38620) NEGATIVE VAGINAL PATHOGENS DNA [id number] 00:00:00 Test Item Value Reference Range Interpretation Comments ANDIE SPECIES (test code = 32613) NEGATIVE G. VAGINALIS (test code = 87520) NEGATIVE T. VAGINALIS (test code = 26355) NEGATIVE VAGINAL PATHOGENS DNA [id number] 00:00:00 Test Item Value Reference Range Interpretation Comments ANDIE SPECIES (test code = 50493) NEGATIVE G. VAGINALIS (test code = 79385) NEGATIVE T. VAGINALIS (test code = 29949) NEGATIVE VAGINAL PATHOGENS DNA [id number] 00:00:00 Test Item Value Reference Range Interpretation Comments ANDIE SPECIES (test code = 25741) NEGATIVE G. VAGINALIS (test code = 14967) NEGATIVE T. VAGINALIS (test code = 92483) NEGATIVE VAGINAL PATHOGENS DNA [id number] 00:00:00 Test Item Value Reference Range Interpretation Comments ANDIE SPECIES (test code = 96940) NEGATIVE G. VAGINALIS (test code = 73410) NEGATIVE T. VAGINALIS (test code = 69523) NEGATIVE VAGINAL PATHOGENS DNA [id number] 00:00:00 Test Item Value Reference Range Interpretation Comments ANDIE SPECIES (test code = 36820) NEGATIVE G. VAGINALIS (test code = 43777) NEGATIVE T. VAGINALIS (test code = 47097) NEGATIVE VAGINAL PATHOGENS DNA [id number] 00:00:00 Test Item Value Reference Range Interpretation Comments ANDIE SPECIES (test code = 99868) NEGATIVE G. VAGINALIS (test code = 32835) NEGATIVE T. VAGINALIS (test code = 77259) NEGATIVE VAGINAL PATHOGENS DNA [id number] 00:00:00 Test Item Value Reference Range Interpretation Comments ANDIE SPECIES (test code = 99315) NEGATIVE G. VAGINALIS (test code = 98184) NEGATIVE T. VAGINALIS (test code = 54697) NEGATIVE VAGINAL PATHOGENS DNA [id number] 00:00:00 Test Item Value Reference Range Interpretation Comments ANDIE SPECIES (test code = 12306) NEGATIVE G. VAGINALIS (test code = 98841) NEGATIVE T. VAGINALIS (test code = 43824) NEGATIVE VAGINAL PATHOGENS DNA [id number] 00:00:00 Test Item Value Reference Range Interpretation Comments ANDIE SPECIES (test code = ) NEGATIVE G. VAGINALIS (test code = 82211) NEGATIVE T. VAGINALIS (test code = 67137) NEGATIVE VAGINAL PATHOGENS DNA [id number] 00:00:00 Test Item Value Reference Range Interpretation Comments ANDIE SPECIES (test code = 69656) NEGATIVE G. VAGINALIS (test code = 00783) NEGATIVE T. VAGINALIS (test code = 61479) NEGATIVE VAGINAL PATHOGENS DNA [id number] 00:00:00 Test Item Value Reference Range Interpretation Comments ANDIE SPECIES (test code = 38297) NEGATIVE G. VAGINALIS (test code = 19436) NEGATIVE T. VAGINALIS (test code = 31416) NEGATIVE VAGINAL PATHOGENS DNA [id number] 00:00:00 Test Item Value Reference Range Interpretation Comments ANDIE SPECIES (test code = 55987) NEGATIVE G. VAGINALIS (test code = 95991) NEGATIVE T. VAGINALIS (test code = 04616) NEGATIVE VAGINAL PATHOGENS DNA [id number] 00:00:00 Test Item Value Reference Range Interpretation Comments ANDIE SPECIES (test code = ) NEGATIVE G. VAGINALIS (test code = 52916) NEGATIVE T. VAGINALIS (test code = 76059) NEGATIVE HEMOGLOBIN [id number] 00:00:00 Test Item Value Reference Range Interpretation Comments HEMOGLOBIN A1c (test code = 02893) 11.4 % HEMOGLOBIN [id number] 00:00:00 Test Item Value Reference Range Interpretation Comments HEMOGLOBIN A1c (test code = 78656) 11.4 % HEMOGLOBIN [id number] 00:00:00 Test Item Value Reference Range Interpretation Comments HEMOGLOBIN A1c (test code = 75925) 11.4 % LIPID [id number] 00:00:00 Test Item Value Reference Range Interpretation Comments CHOLESTEROL (test code = 2210) 162 MG/DL TRIGLYCERIDES (test code = 2232) 387 MG/DL HDL CHOLESTEROL (test code = 2220) 30 MG/DL CALC LDL CHOL (test code = 2237) 80 MG/DL RISK RATIO LDL/HDL (test code = 2.67 RATIO 2238) LIPID [id number] 00:00:00 Test Item Value Reference Range Interpretation Comments CHOLESTEROL (test code = 2210) 162 MG/DL TRIGLYCERIDES (test code = 2232) 387 MG/DL HDL CHOLESTEROL (test code = 2220) 30 MG/DL CALC LDL CHOL (test code = 2237) 80 MG/DL RISK RATIO LDL/HDL (test code = 2.67 RATIO 2238) COMPREHENSIVE METABOLIC [id number] 00:00:00 Test Item Value Reference Range Interpretation Comments GLUCOSE (test code = 2217) 236 MG/DL BUN (test code = 2208) 14 MG/DL CREATININE (test code = 2214) 0.71 MG/DL eGFR AMER. (test code 122 ML/MIN/1.73 = 39703) eGFR NON- AMER. (test 105 ML/MIN/1.73 code = 44779) CALC BUN/CREAT (test code = 20 RATIO [...] code = 2219) 69 U/L COMPREHENSIVE METABOLIC [id number] 00:00:00 Test Item Value Reference Range Interpretation Comments GLUCOSE (test code = 2217) 236 MG/DL BUN (test code = 2208) 14 MG/DL CREATININE (test code = 2214) 0.71 MG/DL eGFR AMER. (test code 122 ML/MIN/1.73 = 77511) eGFR NON- AMER. (test 105 ML/MIN/1.73 code = 12193) CALC BUN/CREAT (test code = 20 RATIO [...] (test code = 2219) 69 U/L HEMOGLOBIN [id number] 00:00:00 Test Item Value Reference Range Interpretation Comments HEMOGLOBIN A1c (test code = 65629) 11.4 % HEMOGLOBIN [id number] 00:00:00 Test Item Value Reference Range Interpretation Comments HEMOGLOBIN A1c (test code = 23441) 11.4 % HEMOGLOBIN [id number] 00:00:00 Test Item Value Reference Range Interpretation Comments HEMOGLOBIN A1c (test code = 38809) 11.4 % LIPID [id number] 00:00:00 Test Item Value Reference Range Interpretation Comments CHOLESTEROL (test code = 2210) 162 MG/DL TRIGLYCERIDES (test code = 2232) 387 MG/DL HDL CHOLESTEROL (test code = 2220) 30 MG/DL CALC LDL CHOL (test code = 2237) 80 MG/DL RISK RATIO LDL/HDL (test code = 2.67 RATIO 2238) LIPID [id number] 00:00:00 Test Item Value Reference Range Interpretation Comments CHOLESTEROL (test code = 2210) 162 MG/DL TRIGLYCERIDES (test code = 2232) 387 MG/DL HDL CHOLESTEROL (test code = 2220) 30 MG/DL CALC LDL CHOL (test code = 2237) 80 MG/DL RISK RATIO LDL/HDL (test code = 2.67 RATIO 2238) COMPREHENSIVE METABOLIC [id number] 00:00:00 Test Item Value Reference Range Interpretation Comments GLUCOSE (test code = 2217) 236 MG/DL BUN (test code = 2208) 14 MG/DL CREATININE (test code = 2214) 0.71 MG/DL eGFR AMER. (test code 122 ML/MIN/1.73 = 94253) eGFR NON- AMER. (test 105 ML/MIN/1.73 code = 23503) CALC BUN/CREAT (test code = 20 RATIO [...] code = 2219) 69 U/L COMPREHENSIVE METABOLIC [id number] 00:00:00 Test Item Value Reference Range Interpretation Comments GLUCOSE (test code = 2217) 236 MG/DL BUN (test code = 2208) 14 MG/DL CREATININE (test code = 2214) 0.71 MG/DL eGFR AMER. (test code 122 ML/MIN/1.73 = 91861) eGFR NON- AMER. (test 105 ML/MIN/1.73 code = 11452) CALC BUN/CREAT (test code = 20 RATIO [...] (test code = 2219) 69 U/L HEMOGLOBIN [id number] 00:00:00 Test Item Value Reference Range Interpretation Comments HEMOGLOBIN A1c (test code = 96384) 11.4 % HEMOGLOBIN [id number] 00:00:00 Test Item Value Reference Range Interpretation Comments HEMOGLOBIN A1c (test code = 94515) 11.4 % HEMOGLOBIN [id number] 00:00:00 Test Item Value Reference Range Interpretation Comments HEMOGLOBIN A1c (test code = 37438) 11.4 % LIPID [id number] 00:00:00 Test Item Value Reference Range Interpretation Comments CHOLESTEROL (test code = 2210) 162 MG/DL TRIGLYCERIDES (test code = 2232) 387 MG/DL HDL CHOLESTEROL (test code = 2220) 30 MG/DL CALC LDL CHOL (test code = 2237) 80 MG/DL RISK RATIO LDL/HDL (test code = 2.67 RATIO 2238) LIPID [id number] 00:00:00 Test Item Value Reference Range Interpretation Comments CHOLESTEROL (test code = 2210) 162 MG/DL TRIGLYCERIDES (test code = 2232) 387 MG/DL HDL CHOLESTEROL (test code = 2220) 30 MG/DL CALC LDL CHOL (test code = 2237) 80 MG/DL RISK RATIO LDL/HDL (test code = 2.67 RATIO 2238) COMPREHENSIVE METABOLIC [id number] 00:00:00 Test Item Value Reference Range Interpretation Comments GLUCOSE (test code = 2217) 236 MG/DL BUN (test code = 2208) 14 MG/DL CREATININE (test code = 2214) 0.71 MG/DL eGFR AMER. (test code 122 ML/MIN/1.73 = 83709) eGFR NON- AMER. (test 105 ML/MIN/1.73 code = 86515) CALC BUN/CREAT (test code = 20 RATIO [...] code = 2219) 69 U/L COMPREHENSIVE METABOLIC [id number] 00:00:00 Test Item Value Reference Range Interpretation Comments GLUCOSE (test code = 2217) 236 MG/DL BUN (test code = 2208) 14 MG/DL CREATININE (test code = 2214) 0.71 MG/DL eGFR AMER. (test code 122 ML/MIN/1.73 = 21977) eGFR NON- AMER. (test 105 ML/MIN/1.73 code = 91045) CALC BUN/CREAT (test code = 20 RATIO [...] (test code = 2219) 69 U/L HEMOGLOBIN [id number] 00:00:00 Test Item Value Reference Range Interpretation Comments HEMOGLOBIN A1c (test code = 38706) 11.4 % HEMOGLOBIN [id number] 00:00:00 Test Item Value Reference Range Interpretation Comments HEMOGLOBIN A1c (test code = 82052) 11.4 % HEMOGLOBIN [id number] 00:00:00 Test Item Value Reference Range Interpretation Comments HEMOGLOBIN A1c (test code = 67776) 11.4 % LIPID [id number] 00:00:00 Test Item Value Reference Range Interpretation Comments CHOLESTEROL (test code = 2210) 162 MG/DL TRIGLYCERIDES (test code = 2232) 387 MG/DL HDL CHOLESTEROL (test code = 2220) 30 MG/DL CALC LDL CHOL (test code = 2237) 80 MG/DL RISK RATIO LDL/HDL (test code = 2.67 RATIO 2238) LIPID [id number] 00:00:00 Test Item Value Reference Range Interpretation Comments CHOLESTEROL (test code = 2210) 162 MG/DL TRIGLYCERIDES (test code = 2232) 387 MG/DL HDL CHOLESTEROL (test code = 2220) 30 MG/DL CALC LDL CHOL (test code = 2237) 80 MG/DL RISK RATIO LDL/HDL (test code = 2.67 RATIO 2238) COMPREHENSIVE METABOLIC [id number] 00:00:00 Test Item Value Reference Range Interpretation Comments GLUCOSE (test code = 2217) 236 MG/DL BUN (test code = 2208) 14 MG/DL CREATININE (test code = 2214) 0.71 MG/DL eGFR AMER. (test code 122 ML/MIN/1.73 = 55538) eGFR NON- AMER. (test 105 ML/MIN/1.73 code = 21897) CALC BUN/CREAT (test code = 20 RATIO [...] code = 2219) 69 U/L COMPREHENSIVE METABOLIC [id number] 00:00:00 Test Item Value Reference Range Interpretation Comments GLUCOSE (test code = 2217) 236 MG/DL BUN (test code = 2208) 14 MG/DL CREATININE (test code = 2214) 0.71 MG/DL eGFR AMER. (test code 122 ML/MIN/1.73 = 16378) eGFR NON- AMER. (test 105 ML/MIN/1.73 code = 82239) CALC BUN/CREAT (test code = 20 RATIO [...] (test code = 2219) 69 U/L HEMOGLOBIN [id number] 00:00:00 Test Item Value Reference Range Interpretation Comments HEMOGLOBIN A1c (test code = 53721) 11.4 % HEMOGLOBIN [id number] 00:00:00 Test Item Value Reference Range Interpretation Comments HEMOGLOBIN A1c (test code = 26589) 11.4 % HEMOGLOBIN [id number] 00:00:00 Test Item Value Reference Range Interpretation Comments HEMOGLOBIN A1c (test code = 81194) 11.4 % LIPID [id number] 00:00:00 Test Item Value Reference Range Interpretation Comments CHOLESTEROL (test code = 2210) 162 MG/DL TRIGLYCERIDES (test code = 2232) 387 MG/DL HDL CHOLESTEROL (test code = 2220) 30 MG/DL CALC LDL CHOL (test code = 2237) 80 MG/DL RISK RATIO LDL/HDL (test code = 2.67 RATIO 2238) LIPID [id number] 00:00:00 Test Item Value Reference Range Interpretation Comments CHOLESTEROL (test code = 2210) 162 MG/DL TRIGLYCERIDES (test code = 2232) 387 MG/DL HDL CHOLESTEROL (test code = 2220) 30 MG/DL CALC LDL CHOL (test code = 2237) 80 MG/DL RISK RATIO LDL/HDL (test code = 2.67 RATIO 2238) COMPREHENSIVE METABOLIC [id number] 00:00:00 Test Item Value Reference Range Interpretation Comments GLUCOSE (test code = 2217) 236 MG/DL BUN (test code = 2208) 14 MG/DL CREATININE (test code = 2214) 0.71 MG/DL eGFR AMER. (test code 122 ML/MIN/1.73 = 06028) eGFR NON- AMER. (test 105 ML/MIN/1.73 code = 12793) CALC BUN/CREAT (test code = 20 RATIO [...] code = 2219) 69 U/L COMPREHENSIVE METABOLIC [id number] 00:00:00 Test Item Value Reference Range Interpretation Comments GLUCOSE (test code = 2217) 236 MG/DL BUN (test code = 2208) 14 MG/DL CREATININE (test code = 2214) 0.71 MG/DL eGFR AMER. (test code 122 ML/MIN/1.73 = 19348) eGFR NON- AMER. (test 105 ML/MIN/1.73 code = 26134) CALC BUN/CREAT (test code = 20 RATIO [...] (test code = 2219) 69 U/L HEMOGLOBIN [id number] 00:00:00 Test Item Value Reference Range Interpretation Comments HEMOGLOBIN A1c (test code = 81117) 11.4 % HEMOGLOBIN [id number] 00:00:00 Test Item Value Reference Range Interpretation Comments HEMOGLOBIN A1c (test code = 18944) 11.4 % HEMOGLOBIN [id number] 00:00:00 Test Item Value Reference Range Interpretation Comments HEMOGLOBIN A1c (test code = 69009) 11.4 % LIPID [id number] 00:00:00 Test Item Value Reference Range Interpretation Comments CHOLESTEROL (test code = 2210) 162 MG/DL TRIGLYCERIDES (test code = 2232) 387 MG/DL HDL CHOLESTEROL (test code = 2220) 30 MG/DL CALC LDL CHOL (test code = 2237) 80 MG/DL RISK RATIO LDL/HDL (test code = 2.67 RATIO 2238) LIPID [id number] 00:00:00 Test Item Value Reference Range Interpretation Comments CHOLESTEROL (test code = 2210) 162 MG/DL TRIGLYCERIDES (test code = 2232) 387 MG/DL HDL CHOLESTEROL (test code = 2220) 30 MG/DL CALC LDL CHOL (test code = 2237) 80 MG/DL RISK RATIO LDL/HDL (test code = 2.67 RATIO 2238) COMPREHENSIVE METABOLIC [id number] 00:00:00 Test Item Value Reference Range Interpretation Comments GLUCOSE (test code = 2217) 236 MG/DL BUN (test code = 2208) 14 MG/DL CREATININE (test code = 2214) 0.71 MG/DL eGFR AMER. (test code 122 ML/MIN/1.73 = 48792) eGFR NON- AMER. (test 105 ML/MIN/1.73 code = 91806) CALC BUN/CREAT (test code = 20 RATIO [...] code = 2219) 69 U/L COMPREHENSIVE METABOLIC [id number] 00:00:00 Test Item Value Reference Range Interpretation Comments GLUCOSE (test code = 2217) 236 MG/DL BUN (test code = 2208) 14 MG/DL CREATININE (test code = 2214) 0.71 MG/DL eGFR AMER. (test code 122 ML/MIN/1.73 = 40072) eGFR NON- AMER. (test 105 ML/MIN/1.73 code = 92773) CALC BUN/CREAT (test code = 20 RATIO [...] (test code = 2219) 69 U/L HEMOGLOBIN [id number] 00:00:00 Test Item Value Reference Range Interpretation Comments HEMOGLOBIN A1c (test code = 13934) 11.4 % HEMOGLOBIN [id number] 00:00:00 Test Item Value Reference Range Interpretation Comments HEMOGLOBIN A1c (test code = 37087) 11.4 % HEMOGLOBIN [id number] 00:00:00 Test Item Value Reference Range Interpretation Comments HEMOGLOBIN A1c (test code = 77230) 11.4 % LIPID [id number] 00:00:00 Test Item Value Reference Range Interpretation Comments CHOLESTEROL (test code = 2210) 162 MG/DL TRIGLYCERIDES (test code = 2232) 387 MG/DL HDL CHOLESTEROL (test code = 2220) 30 MG/DL CALC LDL CHOL (test code = 2237) 80 MG/DL RISK RATIO LDL/HDL (test code = 2.67 RATIO 2238) LIPID [id number] 00:00:00 Test Item Value Reference Range Interpretation Comments CHOLESTEROL (test code = 2210) 162 MG/DL TRIGLYCERIDES (test code = 2232) 387 MG/DL HDL CHOLESTEROL (test code = 2220) 30 MG/DL CALC LDL CHOL (test code = 2237) 80 MG/DL RISK RATIO LDL/HDL (test code = 2.67 RATIO 2238) HEMOGLOBIN [id number] 00:00:00 Test Item Value Reference Range Interpretation Comments HEMOGLOBIN A1c (test code = 15495) 11.4 % COMPREHENSIVE METABOLIC [id number] 00:00:00 Test Item Value Reference Range Interpretation Comments GLUCOSE (test code = 2217) 236 MG/DL BUN (test code = 2208) 14 MG/DL CREATININE (test code = 2214) 0.71 MG/DL eGFR AMER. (test code 122 ML/MIN/1.73 = 77517) eGFR NON- AMER. (test 105 ML/MIN/1.73 code = 70251) CALC BUN/CREAT (test code = 20 RATIO [...] code = 2219) 69 U/L COMPREHENSIVE METABOLIC [id number] 00:00:00 Test Item Value Reference Range Interpretation Comments GLUCOSE (test code = 2217) 236 MG/DL BUN (test code = 2208) 14 MG/DL CREATININE (test code = 2214) 0.71 MG/DL eGFR AMER. (test code 122 ML/MIN/1.73 = 44066) eGFR NON- AMER. (test 105 ML/MIN/1.73 code = 04271) CALC BUN/CREAT (test code = 20 RATIO [...] (test code = 2219) 69 U/L HEMOGLOBIN [id number] 00:00:00 Test Item Value Reference Range Interpretation Comments HEMOGLOBIN A1c (test code = 75600) 11.4 % LIPID [id number] 00:00:00 Test Item Value Reference Range Interpretation Comments CHOLESTEROL (test code = 2210) 162 MG/DL TRIGLYCERIDES (test code = 2232) 387 MG/DL HDL CHOLESTEROL (test code = 2220) 30 MG/DL CALC LDL CHOL (test code = 2237) 80 MG/DL RISK RATIO LDL/HDL (test code = 2.67 RATIO 2238) COMPREHENSIVE METABOLIC [id number] 00:00:00 Test Item Value Reference Range Interpretation Comments GLUCOSE (test code = 2217) 236 MG/DL BUN (test code = 2208) 14 MG/DL CREATININE (test code = 2214) 0.71 MG/DL eGFR AMER. (test code 122 ML/MIN/1.73 = 78700) eGFR NON- AMER. (test 105 ML/MIN/1.73 code = 14898) CALC BUN/CREAT (test code = 20 RATIO [...] (test code = 2219) 69 U/L HEMOGLOBIN [id number] 00:00:00 Test Item Value Reference Range Interpretation Comments HEMOGLOBIN A1c (test code = 22130) 11.4 % HEMOGLOBIN [id number] 00:00:00 Test Item Value Reference Range Interpretation Comments HEMOGLOBIN A1c (test code = 69600) 11.4 % HEMOGLOBIN [id number] 00:00:00 Test Item Value Reference Range Interpretation Comments HEMOGLOBIN A1c (test code = 06832) 11.4 % LIPID [id number] 00:00:00 Test Item Value Reference Range Interpretation Comments CHOLESTEROL (test code = 2210) 162 MG/DL TRIGLYCERIDES (test code = 2232) 387 MG/DL HDL CHOLESTEROL (test code = 2220) 30 MG/DL CALC LDL CHOL (test code = 2237) 80 MG/DL RISK RATIO LDL/HDL (test code = 2.67 RATIO 2238) LIPID [id number] 00:00:00 Test Item Value Reference Range Interpretation Comments CHOLESTEROL (test code = 2210) 162 MG/DL TRIGLYCERIDES (test code = 2232) 387 MG/DL HDL CHOLESTEROL (test code = 2220) 30 MG/DL CALC LDL CHOL (test code = 2237) 80 MG/DL RISK RATIO LDL/HDL (test code = 2.67 RATIO 2238) COMPREHENSIVE METABOLIC [id number] 00:00:00 Test Item Value Reference Range Interpretation Comments GLUCOSE (test code = 2217) 236 MG/DL BUN (test code = 2208) 14 MG/DL CREATININE (test code = 2214) 0.71 MG/DL eGFR AMER. (test code 122 ML/MIN/1.73 = 00913) eGFR NON- AMER. (test 105 ML/MIN/1.73 code = 38016) CALC BUN/CREAT (test code = 20 RATIO [...] code = 2219) 69 U/L COMPREHENSIVE METABOLIC [id number] 00:00:00 Test Item Value Reference Range Interpretation Comments GLUCOSE (test code = 2217) 236 MG/DL BUN (test code = 2208) 14 MG/DL CREATININE (test code = 2214) 0.71 MG/DL eGFR AMER. (test code 122 ML/MIN/1.73 = 96406) eGFR NON- AMER. (test 105 ML/MIN/1.73 code = 30757) CALC BUN/CREAT (test code = 20 RATIO [...] (test code = 2219) 69 U/L HEMOGLOBIN [id number] 00:00:00 Test Item Value Reference Range Interpretation Comments HEMOGLOBIN A1c (test code = 79897) 11.4 % HEMOGLOBIN [id number] 00:00:00 Test Item Value Reference Range Interpretation Comments HEMOGLOBIN A1c (test code = 65558) 11.4 % HEMOGLOBIN [id number] 00:00:00 Test Item Value Reference Range Interpretation Comments HEMOGLOBIN A1c (test code = 73750) 11.4 % LIPID [id number] 00:00:00 Test Item Value Reference Range Interpretation Comments CHOLESTEROL (test code = 2210) 162 MG/DL TRIGLYCERIDES (test code = 2232) 387 MG/DL HDL CHOLESTEROL (test code = 2220) 30 MG/DL CALC LDL CHOL (test code = 2237) 80 MG/DL RISK RATIO LDL/HDL (test code = 2.67 RATIO 2238) LIPID [id number] 00:00:00 Test Item Value Reference Range Interpretation Comments CHOLESTEROL (test code = 2210) 162 MG/DL TRIGLYCERIDES (test code = 2232) 387 MG/DL HDL CHOLESTEROL (test code = 2220) 30 MG/DL CALC LDL CHOL (test code = 2237) 80 MG/DL RISK RATIO LDL/HDL (test code = 2.67 RATIO 2238) COMPREHENSIVE METABOLIC [id number] 00:00:00 Test Item Value Reference Range Interpretation Comments GLUCOSE (test code = 2217) 236 MG/DL BUN (test code = 2208) 14 MG/DL CREATININE (test code = 2214) 0.71 MG/DL eGFR AMER. (test code 122 ML/MIN/1.73 = 30597) eGFR NON- AMER. (test 105 ML/MIN/1.73 code = 35310) CALC BUN/CREAT (test code = 20 RATIO [...] code = 2219) 69 U/L COMPREHENSIVE METABOLIC [id number] 00:00:00 Test Item Value Reference Range Interpretation Comments GLUCOSE (test code = 2217) 236 MG/DL BUN (test code = 2208) 14 MG/DL CREATININE (test code = 2214) 0.71 MG/DL eGFR AMER. (test code 122 ML/MIN/1.73 = 08998) eGFR NON- AMER. (test 105 ML/MIN/1.73 code = 66362) CALC BUN/CREAT (test code = 20 RATIO [...] (test code = 2219) 69 U/L HEMOGLOBIN [id number] 00:00:00 Test Item Value Reference Range Interpretation Comments HEMOGLOBIN A1c (test code = 06235) 11.4 % HEMOGLOBIN [id number] 00:00:00 Test Item Value Reference Range Interpretation Comments HEMOGLOBIN A1c (test code = 02300) 11.4 % HEMOGLOBIN [id number] 00:00:00 Test Item Value Reference Range Interpretation Comments HEMOGLOBIN A1c (test code = 68890) 11.4 % LIPID [id number] 00:00:00 Test Item Value Reference Range Interpretation Comments CHOLESTEROL (test code = 2210) 162 MG/DL TRIGLYCERIDES (test code = 2232) 387 MG/DL HDL CHOLESTEROL (test code = 2220) 30 MG/DL CALC LDL CHOL (test code = 2237) 80 MG/DL RISK RATIO LDL/HDL (test code = 2.67 RATIO 2238) LIPID [id number] 00:00:00 Test Item Value Reference Range Interpretation Comments CHOLESTEROL (test code = 2210) 162 MG/DL TRIGLYCERIDES (test code = 2232) 387 MG/DL HDL CHOLESTEROL (test code = 2220) 30 MG/DL CALC LDL CHOL (test code = 2237) 80 MG/DL RISK RATIO LDL/HDL (test code = 2.67 RATIO 2238) COMPREHENSIVE METABOLIC [id number] 00:00:00 Test Item Value Reference Range Interpretation Comments GLUCOSE (test code = 2217) 236 MG/DL BUN (test code = 2208) 14 MG/DL CREATININE (test code = 2214) 0.71 MG/DL eGFR AMER. (test code 122 ML/MIN/1.73 = 36487) eGFR NON- AMER. (test 105 ML/MIN/1.73 code = 74520) CALC BUN/CREAT (test code = 20 RATIO [...] code = 2219) 69 U/L COMPREHENSIVE METABOLIC [id number] 00:00:00 Test Item Value Reference Range Interpretation Comments GLUCOSE (test code = 2217) 236 MG/DL BUN (test code = 2208) 14 MG/DL CREATININE (test code = 2214) 0.71 MG/DL eGFR AMER. (test code 122 ML/MIN/1.73 = 65612) eGFR NON- AMER. (test 105 ML/MIN/1.73 code = 20381) CALC BUN/CREAT (test code = 20 RATIO [...] U/L - CT UP EXTREM W/O CONT [id number] 08:37:00 [facility]ITAL[facility]: MARGE FRANCO : 1980 Sex: F PatientName: MARGE FRANCO Unit No: [id number] EXAMS: CPT CODE: [id number] [place] W/[place] [address] [place] SCAN LEFT WRIST WITH RECONSTRUCTION DIAGNOSIS: [...] with ACR practice standards and adherence to doll wig hackler's recommendations. INDICATION: LEFT WRIST SPRAIN, POSSIBLE SCAPHOID FRACTURE COMPARISON: None. COMMENT: Findings are as described above. at 0837 Reported and signed by: Josef Schuler MD CC: Bebeto Quiroga MD Technologist: KAVEH WYMAN MRI CTDI: DLP: Trnscrpt: 08/11/2020 (0837) tSCARGVG [facility] NAME: MARGE FRANCO [address] [place] [address] PHYS: Bebeto Valiente MD : 1980 AGE: 40 SEX: F [place] [address] LOC: Y.RAD PHONE #: [phone] EXAM DATE: 08/08/2020TATUS: ALEX CLI FAX #: [phone] RAD #: D/C DT PAGE 1 Signed Report Patient Name: Nguyen FRANCO No: [id number] EXAMS: CPT CODE: [id number] CT UP EXTREM W/[place] [address] (Continued) Orig Print D/T: S: 08/11/2020 (0840) [facility] NAME: MARGE FRANCO [address] [place] [address] PHYS: Bebeto Valiente MD : 1980 AGE: 40 SEX: F [place] [address] LOC: Y.RAD PHONE #: [phone] EXAM DATE: 08/08/2020 STATUS: DEP CLI FAX #: [phone] RAD #: D/C DT PAGE 2 Signed ReportCULTURE, [id number] 00:00:00 Test Item Value Reference Range Interpretation Comments CULTURE, URINE (test SPECIMEN NUMBER: code = 48687) [id number] CULTURE, [id number] 00:00:00 Test Item Value Reference Range Interpretation Comments CULTURE, URINE (test SPECIMEN NUMBER: code = 44793) [id number] CULTURE, [id number] 00:00:00 Test Item Value Reference Range Interpretation Comments CULTURE, URINE (test SPECIMEN NUMBER: code = 93342) [id number] CULTURE, [id number] 00:00:00 Test Item Value Reference Range Interpretation Comments CULTURE, URINE (test SPECIMEN NUMBER: code = 37923) [id number] CULTURE, [id number] 00:00:00 Test Item Value Reference Range Interpretation Comments CULTURE, URINE (test SPECIMEN NUMBER: code = 40747) [id number] CULTURE, [id number] 00:00:00 Test Item Value Reference Range Interpretation Comments CULTURE, URINE (test SPECIMEN NUMBER: code = 45984) [id number] CULTURE, [id number] 00:00:00 Test Item Value Reference Range Interpretation Comments CULTURE, URINE (test SPECIMEN NUMBER: code = 26721) [id number] CULTURE, [id number] 00:00:00 Test Item Value Reference Range Interpretation Comments CULTURE, URINE (test SPECIMEN NUMBER: code = 09392) [id number] CULTURE, [id number] 00:00:00 Test Item Value Reference Range Interpretation Comments CULTURE, URINE (test SPECIMEN NUMBER: code = 09696) [id number] CULTURE, [id number] 00:00:00 Test Item Value Reference Range Interpretation Comments CULTURE, URINE (test SPECIMEN NUMBER: code = 09160) [id number] CULTURE, [id number] 00:00:00 Test Item Value Reference Range Interpretation Comments CULTURE, URINE (test SPECIMEN NUMBER: code = 57727) [id number] CULTURE, [id number] 00:00:00 Test Item Value Reference Range Interpretation Comments CULTURE, URINE (test SPECIMEN NUMBER: code = 76102) [id number] CULTURE, [id number] 00:00:00 Test Item Value Reference Range Interpretation Comments CULTURE, URINE (test SPECIMEN NUMBER: code = 19078) [id number] CULTURE, [id number] 00:00:00 Test Item Value Reference Range Interpretation Comments CULTURE, URINE (test SPECIMEN NUMBER: code = 73252) [id number] CULTURE, [id number] 00:00:00 Test Item Value Reference Range Interpretation Comments CULTURE, URINE (test SPECIMEN NUMBER: code = 35167) [id number] CULTURE, [id number] 00:00:00 Test Item Value Reference Range Interpretation Comments CULTURE, URINE (test SPECIMEN NUMBER: code = 37356) [id number] CULTURE, [id number] 00:00:00 Test Item Value Reference Range Interpretation Comments CULTURE, URINE (test SPECIMEN NUMBER: code = 01093) [id number] CULTURE, [id number] 00:00:00 Test Item Value Reference Range Interpretation Comments CULTURE, URINE (test SPECIMEN NUMBER: code = 82195) [id number] CULTURE, [id number] 00:00:00 Test Item Value Reference Range Interpretation Comments CULTURE, URINE (test SPECIMEN NUMBER: code = 41435) [id number] CULTURE, [id number] 00:00:00 Test Item Value Reference Range Interpretation Comments CULTURE, URINE (test SPECIMEN NUMBER: code = 68729) [id number] CULTURE, [id number] 00:00:00 Test Item Value Reference Range Interpretation Comments CULTURE, URINE (test SPECIMEN NUMBER: code = 65263) [id number] VAGINAL PATHOGENS DNA [id number] 00:00:00 Test Item Value Reference Range Interpretation Comments ANDIE SPECIES (test code = ) NEGATIVE G. VAGINALIS (test code = 03079) NEGATIVE T. VAGINALIS (test code = 86108) NEGATIVE VAGINAL PATHOGENS DNA [id number] 00:00:00 Test Item Value Reference Range Interpretation Comments ANDIE SPECIES (test code = 14768) NEGATIVE G. VAGINALIS (test code = 13980) NEGATIVE T. VAGINALIS (test code = 26543) NEGATIVE VAGINAL PATHOGENS DNA [id number] 00:00:00 Test Item Value Reference Range Interpretation Comments ANDIE SPECIES (test code = 15902) NEGATIVE G. VAGINALIS (test code = 58764) NEGATIVE T. VAGINALIS (test code = 95507) NEGATIVE VAGINAL PATHOGENS DNA [id number] 00:00:00 Test Item Value Reference Range Interpretation Comments ANDIE SPECIES (test code = 09372) NEGATIVE G. VAGINALIS (test code = 77124) NEGATIVE T. VAGINALIS (test code = 59159) NEGATIVE VAGINAL PATHOGENS DNA [id number] 00:00:00 Test Item Value Reference Range Interpretation Comments ANDIE SPECIES (test code = 26780) NEGATIVE G. VAGINALIS (test code = 77903) NEGATIVE T. VAGINALIS (test code = 53478) NEGATIVE VAGINAL PATHOGENS DNA [id number] 00:00:00 Test Item Value Reference Range Interpretation Comments ANDIE SPECIES (test code = 62071) NEGATIVE G. VAGINALIS (test code = 67409) NEGATIVE T. VAGINALIS (test code = 93052) NEGATIVE VAGINAL PATHOGENS DNA [id number] 00:00:00 Test Item Value Reference Range Interpretation Comments ANDIE SPECIES (test code = ) NEGATIVE G. VAGINALIS (test code = 18115) NEGATIVE T. VAGINALIS (test code = 04354) NEGATIVE VAGINAL PATHOGENS DNA [id number] 00:00:00 Test Item Value Reference Range Interpretation Comments ANDIE SPECIES (test code = ) NEGATIVE G. VAGINALIS (test code = 44977) NEGATIVE T. VAGINALIS (test code = 05563) NEGATIVE VAGINAL PATHOGENS DNA [id number] 00:00:00 Test Item Value Reference Range Interpretation Comments ANDIE SPECIES (test code = 67113) NEGATIVE G. VAGINALIS (test code = 95084) NEGATIVE T. VAGINALIS (test code = 06206) NEGATIVE VAGINAL PATHOGENS DNA [id number] 00:00:00 Test Item Value Reference Range Interpretation Comments ANDIE SPECIES (test code = 36311) NEGATIVE G. VAGINALIS (test code = 47049) NEGATIVE T. VAGINALIS (test code = 87693) NEGATIVE VAGINAL PATHOGENS DNA [id number] 00:00:00 Test Item Value Reference Range Interpretation Comments ANDIE SPECIES (test code = 05278) NEGATIVE G. VAGINALIS (test code = 57661) NEGATIVE T. VAGINALIS (test code = 44098) NEGATIVE VAGINAL PATHOGENS DNA [id number] 00:00:00 Test Item Value Reference Range Interpretation Comments ANDIE SPECIES (test code = 42464) NEGATIVE G. VAGINALIS (test code = 04810) NEGATIVE T. VAGINALIS (test code = 68941) NEGATIVE VAGINAL PATHOGENS DNA [id number] 00:00:00 Test Item Value Reference Range Interpretation Comments ANDIE SPECIES (test code = 63339) NEGATIVE G. VAGINALIS (test code = 37255) NEGATIVE T. VAGINALIS (test code = 40959) NEGATIVE VAGINAL PATHOGENS DNA [id number] 00:00:00 Test Item Value Reference Range Interpretation Comments ANDIE SPECIES (test code = 48193) NEGATIVE G. VAGINALIS (test code = 32459) NEGATIVE T. VAGINALIS (test code = 15664) NEGATIVE VAGINAL PATHOGENS DNA [id number] 00:00:00 Test Item Value Reference Range Interpretation Comments ANDIE SPECIES (test code = ) NEGATIVE G. VAGINALIS (test code = 35843) NEGATIVE T. VAGINALIS (test code = 25054) NEGATIVE VAGINAL PATHOGENS DNA [id number] 00:00:00 Test Item Value Reference Range Interpretation Comments ANDIE SPECIES (test code = ) NEGATIVE G. VAGINALIS (test code = 82305) NEGATIVE T. VAGINALIS (test code = 43206) NEGATIVE VAGINAL PATHOGENS DNA [id number] 00:00:00 Test Item Value Reference Range Interpretation Comments ANDIE SPECIES (test code = ) NEGATIVE G. VAGINALIS (test code = 30501) NEGATIVE T. VAGINALIS (test code = 33749) NEGATIVE VAGINAL PATHOGENS DNA [id number] 00:00:00 Test Item Value Reference Range Interpretation Comments ANDIE SPECIES (test code = ) NEGATIVE G. VAGINALIS (test code = 82158) NEGATIVE T. VAGINALIS (test code = 17192) NEGATIVE VAGINAL PATHOGENS DNA [id number] 00:00:00 Test Item Value Reference Range Interpretation Comments ANDIE SPECIES (test code = 84043) NEGATIVE G. VAGINALIS (test code = 66550) NEGATIVE T. VAGINALIS (test code = 43138) NEGATIVE VAGINAL PATHOGENS DNA [id number] 00:00:00 Test Item Value Reference Range Interpretation Comments ANDIE SPECIES (test code = 55447) NEGATIVE G. VAGINALIS (test code = 64164) NEGATIVE T. VAGINALIS (test code = 09727) NEGATIVE VAGINAL PATHOGENS DNA [id number] 00:00:00 Test Item Value Reference Range Interpretation Comments ANDIE SPECIES (test code = 03409) NEGATIVE G. VAGINALIS (test code = 56642) NEGATIVE T. VAGINALIS (test code = 95375) NEGATIVE - XR FOREARM 2 VIEWS [id number] 09:10:00 [facility] 1980 Sex: F PatientName: MARGE FRANCO Unit No: [id number] EXAMS: CPT CODE: [id number] XR FORE[place] [address] [place] [address] Left forearm and wrist 4 views COMMENT: There is no evidence for fracture or subluxation. No focal bony lesions are seen. at 0910 Reported and signed by: Prasad Marina MD CC: Rafy Ferguson MD Technologist: Marie Johnson(R) Transcribed D/ (0910) MickeyL [facility] NAME: MARGE FRANCO [address] [facility] PHYS: HAMST.01 - Rafy Ferguson : 1980 AGE: 40 SEX: F [place], [place] [address] LOC: TEOFILO PHONE #: [phone] EXAM DATE: 08/02/2020 STATUS: DEP ER FAX #: [phone] RAD #: D/C DT PAGE 1 Signed Report Patient Name: MARGE FRANCO Unit No: [id number] EXAMS: CPT CODE: [id number] XR FORE[place] [address] [place] [address] (Continued) Orig Print D/T: S: 08/04/2020 (0914) [facility] NAME: MARGE FRANCO [address] [facility] [address] PHYS: YOUSIFRafy Douglas Erin : 1980 AGE: 40 SEX: F [place], [place] [address] LOC: TEOFILO PHONE #: [phone] EXAM DATE: 08/02/2020 STATUS: DEP ER FAX #: [phone] RAD #: D/C DT PAGE 2 Signed ReportCULTURE, [id number] 00:00:00 Test Item Value Reference Range Interpretation Comments CULTURE, URINE (test SPECIMEN NUMBER: code = 94078) [id number] CULTURE, [id number] 00:00:00 Test Item Value Reference Range Interpretation Comments CULTURE, URINE (test SPECIMEN NUMBER: code = 30566) [id number] CULTURE, [id number] 00:00:00 Test Item Value Reference Range Interpretation Comments CULTURE, URINE (test SPECIMEN NUMBER: code = 31389) [id number] CULTURE, [id number] 00:00:00 Test Item Value Reference Range Interpretation Comments CULTURE, URINE (test SPECIMEN NUMBER: code = 75030) [id number] CULTURE, [id number] 00:00:00 Test Item Value Reference Range Interpretation Comments CULTURE, URINE (test SPECIMEN NUMBER: code = 82971) [id number] CULTURE, [id number] 00:00:00 Test Item Value Reference Range Interpretation Comments CULTURE, URINE (test SPECIMEN NUMBER: code = 73882) [id number] CULTURE, [id number] 00:00:00 Test Item Value Reference Range Interpretation Comments CULTURE, URINE (test SPECIMEN NUMBER: code = 46566) [id number] CULTURE, [id number] 00:00:00 Test Item Value Reference Range Interpretation Comments CULTURE, URINE (test SPECIMEN NUMBER: code = 68096) [id number] CULTURE, [id number] 00:00:00 Test Item Value Reference Range Interpretation Comments CULTURE, URINE (test SPECIMEN NUMBER: code = 06061) [id number] CULTURE, [id number] 00:00:00 Test Item Value Reference Range Interpretation Comments CULTURE, URINE (test SPECIMEN NUMBER: code = 45126) [id number] CULTURE, [id number] 00:00:00 Test Item Value Reference Range Interpretation Comments CULTURE, URINE (test SPECIMEN NUMBER: code = 95818) [id number] CULTURE, [id number] 00:00:00 Test Item Value Reference Range Interpretation Comments CULTURE, URINE (test SPECIMEN NUMBER: code = 12352) [id number] CULTURE, [id number] 00:00:00 Test Item Value Reference Range Interpretation Comments CULTURE, URINE (test SPECIMEN NUMBER: code = 64331) [id number] CULTURE, [id number] 00:00:00 Test Item Value Reference Range Interpretation Comments CULTURE, URINE (test SPECIMEN NUMBER: code = 40283) [id number] CULTURE, [id number] 00:00:00 Test Item Value Reference Range Interpretation Comments CULTURE, URINE (test SPECIMEN NUMBER: code = 28587) [id number] CULTURE, [id number] 00:00:00 Test Item Value Reference Range Interpretation Comments CULTURE, URINE (test SPECIMEN NUMBER: code = 14047) [id number] CULTURE, [id number] 00:00:00 Test Item Value Reference Range Interpretation Comments CULTURE, URINE (test SPECIMEN NUMBER: code = 44246) [id number] CULTURE, [id number] 00:00:00 Test Item Value Reference Range Interpretation Comments CULTURE, URINE (test SPECIMEN NUMBER: code = 05214) [id number] CULTURE, [id number] 00:00:00 Test Item Value Reference Range Interpretation Comments CULTURE, URINE (test SPECIMEN NUMBER: code = 12079) [id number] CULTURE, [id number] 00:00:00 Test Item Value Reference Range Interpretation Comments CULTURE, URINE (test SPECIMEN NUMBER: code = 06121) [id number] CULTURE, [id number] 00:00:00 Test Item Value Reference Range Interpretation Comments CULTURE, URINE (test SPECIMEN NUMBER: code = 87353) [id number] SARS-CoV-2 (COVID-19) by RT-PCR (HIGH RISK)2020-04-23 00:00:00 Test Item Value Reference Range Interpretation Comments SARS-CoV-2 INTERPRETATION Negative (test code = 86741) SOURCE (test code = 34906) Nasal_Swab_in_VTM__ UTM SARS-CoV-2 (COVID-19) by RT-PCR (HIGH RISK)2020-04-23 00:00:00 Test Item Value Reference Range Interpretation Comments SARS-CoV-2 INTERPRETATION Negative (test code = 19454) SOURCE (test code = 23991) Nasal_Swab_in_VTM__ UTM SARS-CoV-2 (COVID-19) by RT-PCR (HIGH RISK)2020-04-23 00:00:00 Test Item Value Reference Range Interpretation Comments SARS-CoV-2 INTERPRETATION Negative (test code = 82926) SOURCE (test code = 83308) Nasal_Swab_in_VTM__ UTM SARS-CoV-2 (COVID-19) by RT-PCR (HIGH RISK)2020-04-23 00:00:00 Test Item Value Reference Range Interpretation Comments SARS-CoV-2 INTERPRETATION Negative (test code = 88146) SOURCE (test code = 36266) Nasal_Swab_in_VTM__ UTM SARS-CoV-2 (COVID-19) by RT-PCR (HIGH RISK)2020-04-23 00:00:00 Test Item Value Reference Range Interpretation Comments SARS-CoV-2 INTERPRETATION Negative (test code = 60494) SOURCE (test code = 91632) Nasal_Swab_in_VTM__ UTM SARS-CoV-2 (COVID-19) by RT-PCR (HIGH RISK)2020-04-23 00:00:00 Test Item Value Reference Range Interpretation Comments SARS-CoV-2 INTERPRETATION Negative (test code = 59392) SOURCE (test code = 63057) Nasal_Swab_in_VTM__ UTM SARS-CoV-2 (COVID-19) by RT-PCR (HIGH RISK)2020-04-23 00:00:00 Test Item Value Reference Range Interpretation Comments SARS-CoV-2 INTERPRETATION Negative (test code = 27549) SOURCE (test code = 33908) Nasal_Swab_in_VTM__ UTM SARS-CoV-2 (COVID-19) by RT-PCR (HIGH RISK)2020-04-23 00:00:00 Test Item Value Reference Range Interpretation Comments SARS-CoV-2 INTERPRETATION Negative (test code = 91142) SOURCE (test code = 54313) Nasal_Swab_in_VTM__ UTM SARS-CoV-2 (COVID-19) by RT-PCR (HIGH RISK)2020-04-23 00:00:00 Test Item Value Reference Range Interpretation Comments SARS-CoV-2 INTERPRETATION Negative (test code = 50629) SOURCE (test code = 18296) Nasal_Swab_in_VTM__ UTM SARS-CoV-2 (COVID-19) by RT-PCR (HIGH RISK)2020-04-23 00:00:00 Test Item Value Reference Range Interpretation Comments SARS-CoV-2 INTERPRETATION Negative (test code = 50001) SOURCE (test code = 09607) Nasal_Swab_in_VTM__ UTM SARS-CoV-2 (COVID-19) by RT-PCR (HIGH RISK)2020-04-23 00:00:00 Test Item Value Reference Range Interpretation Comments SARS-CoV-2 INTERPRETATION Negative (test code = 21425) SOURCE (test code = 02335) Nasal_Swab_in_VTM__ UTM COMPREHENSIVE METABOLIC [id number] 00:00:00 Test Item Value Reference Range Interpretation Comments GLUCOSE (test code = 2217) 217 MG/DL BUN (test code = 2208) 13 MG/DL CREATININE (test code = 2214) 0.64 MG/DL eGFR AMER. (test code 128 ML/MIN/1.73 = 20952) eGFR NON- AMER. (test 110 ML/MIN/1.73 code = 80837) CALC BUN/CREAT (test code = 20 RATIO [...] (test code = 2219) 47 U/L CULTURE, [id number] 00:00:00 Test Item Value Reference Range Interpretation Comments CULTURE, URINE (test SPECIMEN NUMBER: code = 27647) [id number] COMPREHENSIVE METABOLIC [id number] 00:00:00 Test Item Value Reference Range Interpretation Comments GLUCOSE (test code = 2217) 217 MG/DL BUN (test code = 2208) 13 MG/DL CREATININE (test code = 2214) 0.64 MG/DL eGFR AMER. (test code 128 ML/MIN/1.73 = 81856) eGFR NON- AMER. (test 110 ML/MIN/1.73 code = 69450) CALC BUN/CREAT (test code = 20 RATIO [...] (test code = 2219) 47 U/L CULTURE, [id number] 00:00:00 Test Item Value Reference Range Interpretation Comments CULTURE, URINE (test SPECIMEN NUMBER: code = 58683) [id number] LIPID [id number] 00:00:00 Test Item Value Reference Range Interpretation Comments CHOLESTEROL (test code = 2210) 220 MG/DL TRIGLYCERIDES (test code = 2232) 873 MG/DL HDL CHOLESTEROL (test code = 30 MG/DL 2220) CALC LDL CHOL (test code = 2237) (NOTE) MG/DL RISK RATIO LDL/HDL (test code = (NOTE) RATIO 2238) LIPID [id number] 00:00:00 Test Item Value Reference Range Interpretation Comments CHOLESTEROL (test code = 2210) 220 MG/DL TRIGLYCERIDES (test code = 2232) 873 MG/DL HDL CHOLESTEROL (test code = 30 MG/DL 0) CALC LDL CHOL (test code = 2237) (NOTE) MG/DL RISK RATIO LDL/HDL (test code = (NOTE) RATIO 2238) HEMOGLOBIN [id number] 00:00:00 Test Item Value Reference Range Interpretation Comments HEMOGLOBIN A1c (test code = 18062) 10.9 % HEMOGLOBIN [id number] 00:00:00 Test Item Value Reference Range Interpretation Comments HEMOGLOBIN A1c (test code = 55963) 10.9 % HEMOGLOBIN [id number] 00:00:00 Test Item Value Reference Range Interpretation Comments HEMOGLOBIN A1c (test code = 47405) 10.9 % COMPREHENSIVE METABOLIC [id number] 00:00:00 Test Item Value Reference Range Interpretation Comments GLUCOSE (test code = 2217) 217 MG/DL BUN (test code = 2208) 13 MG/DL CREATININE (test code = 2214) 0.64 MG/DL eGFR AMER. (test code 128 ML/MIN/1.73 = 62869) eGFR NON- AMER. (test 110 ML/MIN/1.73 code = 06943) CALC BUN/CREAT (test code = 20 RATIO [...] code = 2219) 47 U/L COMPREHENSIVE METABOLIC [id number] 00:00:00 Test Item Value Reference Range Interpretation Comments GLUCOSE (test code = 2217) 217 MG/DL BUN (test code = 2208) 13 MG/DL CREATININE (test code = 2214) 0.64 MG/DL eGFR AMER. (test code 128 ML/MIN/1.73 = 29043) eGFR NON- AMER. (test 110 ML/MIN/1.73 code = 07106) CALC BUN/CREAT (test code = 20 RATIO [...] (test code = 2219) 47 U/L CULTURE, [id number] 00:00:00 Test Item Value Reference Range Interpretation Comments CULTURE, URINE (test SPECIMEN NUMBER: code = 66877) [id number] CULTURE, [id number] 00:00:00 Test Item Value Reference Range Interpretation Comments CULTURE, URINE (test SPECIMEN NUMBER: code = 17086) [id number] LIPID [id number] 00:00:00 Test Item Value Reference Range Interpretation Comments CHOLESTEROL (test code = 2210) 220 MG/DL TRIGLYCERIDES (test code = 2232) 873 MG/DL HDL CHOLESTEROL (test code = 30 MG/DL 2220) CALC LDL CHOL (test code = 2237) (NOTE) MG/DL RISK RATIO LDL/HDL (test code = (NOTE) RATIO 2238) LIPID [id number] 00:00:00 Test Item Value Reference Range Interpretation Comments CHOLESTEROL (test code = 2210) 220 MG/DL TRIGLYCERIDES (test code = 2232) 873 MG/DL HDL CHOLESTEROL (test code = 30 MG/DL 2220) CALC LDL CHOL (test code = 2237) (NOTE) MG/DL RISK RATIO LDL/HDL (test code = (NOTE) RATIO 2238) HEMOGLOBIN [id number] 00:00:00 Test Item Value Reference Range Interpretation Comments HEMOGLOBIN A1c (test code = 07646) 10.9 % HEMOGLOBIN [id number] 00:00:00 Test Item Value Reference Range Interpretation Comments HEMOGLOBIN A1c (test code = 05153) 10.9 % HEMOGLOBIN [id number] 00:00:00 Test Item Value Reference Range Interpretation Comments HEMOGLOBIN A1c (test code = 70048) 10.9 % CULTURE, [id number] 00:00:00 Test Item Value Reference Range Interpretation Comments CULTURE, URINE (test SPECIMEN NUMBER: code = 16745) [id number] CULTURE, [id number] 00:00:00 Test Item Value Reference Range Interpretation Comments CULTURE, URINE (test SPECIMEN NUMBER: code = 18622) [id number] COMPREHENSIVE METABOLIC [id number] 00:00:00 Test Item Value Reference Range Interpretation Comments GLUCOSE (test code = 2217) 217 MG/DL BUN (test code = 2208) 13 MG/DL CREATININE (test code = 2214) 0.64 MG/DL eGFR AMER. (test code 128 ML/MIN/1.73 = 38986) eGFR NON- AMER. (test 110 ML/MIN/1.73 code = 98216) CALC BUN/CREAT (test code = 20 RATIO [...] code = 2219) 47 U/L COMPREHENSIVE METABOLIC [id number] 00:00:00 Test Item Value Reference Range Interpretation Comments GLUCOSE (test code = 2217) 217 MG/DL BUN (test code = 2208) 13 MG/DL CREATININE (test code = 2214) 0.64 MG/DL eGFR AMER. (test code 128 ML/MIN/1.73 = 37968) eGFR NON- AMER. (test 110 ML/MIN/1.73 code = 66102) CALC BUN/CREAT (test code = 20 RATIO [...] (test code = 2219) 47 U/L LIPID [id number] 00:00:00 Test Item Value Reference Range Interpretation Comments CHOLESTEROL (test code = 2210) 220 MG/DL TRIGLYCERIDES (test code = 2232) 873 MG/DL HDL CHOLESTEROL (test code = 30 MG/DL 2220) CALC LDL CHOL (test code = 2237) (NOTE) MG/DL RISK RATIO LDL/HDL (test code = (NOTE) RATIO 2238) LIPID [id number] 00:00:00 Test Item Value Reference Range Interpretation Comments CHOLESTEROL (test code = 2210) 220 MG/DL TRIGLYCERIDES (test code = 2232) 873 MG/DL HDL CHOLESTEROL (test code = 30 MG/DL 2220) CALC LDL CHOL (test code = 2237) (NOTE) MG/DL RISK RATIO LDL/HDL (test code = (NOTE) RATIO 2238) HEMOGLOBIN [id number] 00:00:00 Test Item Value Reference Range Interpretation Comments HEMOGLOBIN A1c (test code = 89101) 10.9 % HEMOGLOBIN [id number] 00:00:00 Test Item Value Reference Range Interpretation Comments HEMOGLOBIN A1c (test code = 74400) 10.9 % HEMOGLOBIN [id number] 00:00:00 Test Item Value Reference Range Interpretation Comments HEMOGLOBIN A1c (test code = 32090) 10.9 % CULTURE, [id number] 00:00:00 Test Item Value Reference Range Interpretation Comments CULTURE, URINE (test SPECIMEN NUMBER: code = 35665) [id number] COMPREHENSIVE METABOLIC [id number] 00:00:00 Test Item Value Reference Range Interpretation Comments GLUCOSE (test code = 2217) 217 MG/DL BUN (test code = 2208) 13 MG/DL CREATININE (test code = 2214) 0.64 MG/DL eGFR AMER. (test code 128 ML/MIN/1.73 = 85347) eGFR NON- AMER. (test 110 ML/MIN/1.73 code = 98122) CALC BUN/CREAT (test code = 20 RATIO [...] code = 2219) 47 U/L COMPREHENSIVE METABOLIC [id number] 00:00:00 Test Item Value Reference Range Interpretation Comments GLUCOSE (test code = 2217) 217 MG/DL BUN (test code = 2208) 13 MG/DL CREATININE (test code = 2214) 0.64 MG/DL eGFR AMER. (test code 128 ML/MIN/1.73 = 83734) eGFR NON- AMER. (test 110 ML/MIN/1.73 code = 18012) CALC BUN/CREAT (test code = 20 RATIO [...] (test code = 2219) 47 U/L CULTURE, [id number] 00:00:00 Test Item Value Reference Range Interpretation Comments CULTURE, URINE (test SPECIMEN NUMBER: code = 51944) [id number] LIPID [id number] 00:00:00 Test Item Value Reference Range Interpretation Comments CHOLESTEROL (test code = 2210) 220 MG/DL TRIGLYCERIDES (test code = 2232) 873 MG/DL HDL CHOLESTEROL (test code = 30 MG/DL 2220) CALC LDL CHOL (test code = 2237) (NOTE) MG/DL RISK RATIO LDL/HDL (test code = (NOTE) RATIO 2238) LIPID [id number] 00:00:00 Test Item Value Reference Range Interpretation Comments CHOLESTEROL (test code = 2210) 220 MG/DL TRIGLYCERIDES (test code = 2232) 873 MG/DL HDL CHOLESTEROL (test code = 30 MG/DL 2220) CALC LDL CHOL (test code = 2237) (NOTE) MG/DL RISK RATIO LDL/HDL (test code = (NOTE) RATIO 2238) HEMOGLOBIN [id number] 00:00:00 Test Item Value Reference Range Interpretation Comments HEMOGLOBIN A1c (test code = 57347) 10.9 % HEMOGLOBIN [id number] 00:00:00 Test Item Value Reference Range Interpretation Comments HEMOGLOBIN A1c (test code = 60931) 10.9 % HEMOGLOBIN [id number] 00:00:00 Test Item Value Reference Range Interpretation Comments HEMOGLOBIN A1c (test code = 22837) 10.9 % COMPREHENSIVE METABOLIC [id number] 00:00:00 Test Item Value Reference Range Interpretation Comments GLUCOSE (test code = 2217) 217 MG/DL BUN (test code = 2208) 13 MG/DL CREATININE (test code = 2214) 0.64 MG/DL eGFR AMER. (test code 128 ML/MIN/1.73 = 55356) eGFR NON- AMER. (test 110 ML/MIN/1.73 code = 41463) CALC BUN/CREAT (test code = 20 RATIO [...] (test code = 2219) 47 U/L CULTURE, [id number] 00:00:00 Test Item Value Reference Range Interpretation Comments CULTURE, URINE (test SPECIMEN NUMBER: code = 76667) [id number] CULTURE, [id number] 00:00:00 Test Item Value Reference Range Interpretation Comments CULTURE, URINE (test SPECIMEN NUMBER: code = 65655) [id number] COMPREHENSIVE METABOLIC [id number] 00:00:00 Test Item Value Reference Range Interpretation Comments GLUCOSE (test code = 2217) 217 MG/DL BUN (test code = 2208) 13 MG/DL CREATININE (test code = 2214) 0.64 MG/DL eGFR AMER. (test code 128 ML/MIN/1.73 = 98224) eGFR NON- AMER. (test 110 ML/MIN/1.73 code = 87774) CALC BUN/CREAT (test code = 20 RATIO [...] (test code = 2219) 47 U/L LIPID [id number] 00:00:00 Test Item Value Reference Range Interpretation Comments CHOLESTEROL (test code = 2210) 220 MG/DL TRIGLYCERIDES (test code = 2232) 873 MG/DL HDL CHOLESTEROL (test code = 30 MG/DL 2220) CALC LDL CHOL (test code = 2237) (NOTE) MG/DL RISK RATIO LDL/HDL (test code = (NOTE) RATIO 2238) LIPID [id number] 00:00:00 Test Item Value Reference Range Interpretation Comments CHOLESTEROL (test code = 2210) 220 MG/DL TRIGLYCERIDES (test code = 2232) 873 MG/DL HDL CHOLESTEROL (test code = 30 MG/DL 2220) CALC LDL CHOL (test code = 2237) (NOTE) MG/DL RISK RATIO LDL/HDL (test code = (NOTE) RATIO 2238) HEMOGLOBIN [id number] 00:00:00 Test Item Value Reference Range Interpretation Comments HEMOGLOBIN A1c (test code = 60245) 10.9 % HEMOGLOBIN [id number] 00:00:00 Test Item Value Reference Range Interpretation Comments HEMOGLOBIN A1c (test code = 33354) 10.9 % HEMOGLOBIN [id number] 00:00:00 Test Item Value Reference Range Interpretation Comments HEMOGLOBIN A1c (test code = 66048) 10.9 % COMPREHENSIVE METABOLIC [id number] 00:00:00 Test Item Value Reference Range Interpretation Comments GLUCOSE (test code = 2217) 217 MG/DL BUN (test code = 2208) 13 MG/DL CREATININE (test code = 2214) 0.64 MG/DL eGFR AMER. (test code 128 ML/MIN/1.73 = 93609) eGFR NON- AMER. (test 110 ML/MIN/1.73 code = 77066) CALC BUN/CREAT (test code = 20 RATIO [...] (test code = 2219) 47 U/L CULTURE, [id number] 00:00:00 Test Item Value Reference Range Interpretation Comments CULTURE, URINE (test SPECIMEN NUMBER: code = 92467) [id number] CULTURE, [id number] 00:00:00 Test Item Value Reference Range Interpretation Comments CULTURE, URINE (test SPECIMEN NUMBER: code = 02162) [id number] COMPREHENSIVE METABOLIC [id number] 00:00:00 Test Item Value Reference Range Interpretation Comments GLUCOSE (test code = 2217) 217 MG/DL BUN (test code = 2208) 13 MG/DL CREATININE (test code = 2214) 0.64 MG/DL eGFR AMER. (test code 128 ML/MIN/1.73 = 45864) eGFR NON- AMER. (test 110 ML/MIN/1.73 code = 37642) CALC BUN/CREAT (test code = 20 RATIO [...] (test code = 2219) 47 U/L LIPID [id number] 00:00:00 Test Item Value Reference Range Interpretation Comments CHOLESTEROL (test code = 2210) 220 MG/DL TRIGLYCERIDES (test code = 2232) 873 MG/DL HDL CHOLESTEROL (test code = 30 MG/DL 2220) CALC LDL CHOL (test code = 2237) (NOTE) MG/DL RISK RATIO LDL/HDL (test code = (NOTE) RATIO 2238) LIPID [id number] 00:00:00 Test Item Value Reference Range Interpretation Comments CHOLESTEROL (test code = 2210) 220 MG/DL TRIGLYCERIDES (test code = 2232) 873 MG/DL HDL CHOLESTEROL (test code = 30 MG/DL 2220) CALC LDL CHOL (test code = 2237) (NOTE) MG/DL RISK RATIO LDL/HDL (test code = (NOTE) RATIO 2238) HEMOGLOBIN [id number] 00:00:00 Test Item Value Reference Range Interpretation Comments HEMOGLOBIN A1c (test code = 34934) 10.9 % HEMOGLOBIN [id number] 00:00:00 Test Item Value Reference Range Interpretation Comments HEMOGLOBIN A1c (test code = 06034) 10.9 % HEMOGLOBIN [id number] 00:00:00 Test Item Value Reference Range Interpretation Comments HEMOGLOBIN A1c (test code = 73249) 10.9 % COMPREHENSIVE METABOLIC [id number] 00:00:00 Test Item Value Reference Range Interpretation Comments GLUCOSE (test code = 2217) 217 MG/DL BUN (test code = 2208) 13 MG/DL CREATININE (test code = 2214) 0.64 MG/DL eGFR AMER. (test code 128 ML/MIN/1.73 = 87312) eGFR NON- AMER. (test 110 ML/MIN/1.73 code = 61597) CALC BUN/CREAT (test code = 20 RATIO [...] code = 2219) 47 U/L COMPREHENSIVE METABOLIC [id number] 00:00:00 Test Item Value Reference Range Interpretation Comments GLUCOSE (test code = 2217) 217 MG/DL BUN (test code = 2208) 13 MG/DL CREATININE (test code = 2214) 0.64 MG/DL eGFR AMER. (test code 128 ML/MIN/1.73 = 44575) eGFR NON- AMER. (test 110 ML/MIN/1.73 code = 63471) CALC BUN/CREAT (test code = 20 RATIO [...] (test code = 2219) 47 U/L CULTURE, [id number] 00:00:00 Test Item Value Reference Range Interpretation Comments CULTURE, URINE (test SPECIMEN NUMBER: code = 05370) [id number] COMPREHENSIVE METABOLIC [id number] 00:00:00 Test Item Value Reference Range Interpretation Comments GLUCOSE (test code = 2217) 217 MG/DL BUN (test code = 2208) 13 MG/DL CREATININE (test code = 2214) 0.64 MG/DL eGFR AMER. (test code 128 ML/MIN/1.73 = 87224) eGFR NON- AMER. (test 110 ML/MIN/1.73 code = 54200) CALC BUN/CREAT (test code = 20 RATIO [...] (test code = 2219) 47 U/L CULTURE, [id number] 00:00:00 Test Item Value Reference Range Interpretation Comments CULTURE, URINE (test SPECIMEN NUMBER: code = 76880) [id number] LIPID [id number] 00:00:00 Test Item Value Reference Range Interpretation Comments CHOLESTEROL (test code = 2210) 220 MG/DL TRIGLYCERIDES (test code = 2232) 873 MG/DL HDL CHOLESTEROL (test code = 30 MG/DL 2220) CALC LDL CHOL (test code = 2237) (NOTE) MG/DL RISK RATIO LDL/HDL (test code = (NOTE) RATIO 2238) LIPID [id number] 00:00:00 Test Item Value Reference Range Interpretation Comments CHOLESTEROL (test code = 2210) 220 MG/DL TRIGLYCERIDES (test code = 2232) 873 MG/DL HDL CHOLESTEROL (test code = 30 MG/DL 2220) CALC LDL CHOL (test code = 2237) (NOTE) MG/DL RISK RATIO LDL/HDL (test code = (NOTE) RATIO 2238) HEMOGLOBIN [id number] 00:00:00 Test Item Value Reference Range Interpretation Comments HEMOGLOBIN A1c (test code = 64393) 10.9 % HEMOGLOBIN [id number] 00:00:00 Test Item Value Reference Range Interpretation Comments HEMOGLOBIN A1c (test code = 13321) 10.9 % HEMOGLOBIN [id number] 00:00:00 Test Item Value Reference Range Interpretation Comments HEMOGLOBIN A1c (test code = 42609) 10.9 % CULTURE, [id number] 00:00:00 Test Item Value Reference Range Interpretation Comments CULTURE, URINE (test SPECIMEN NUMBER: code = 99602) [id number] LIPID [id number] 00:00:00 Test Item Value Reference Range Interpretation Comments CHOLESTEROL (test code = 2210) 220 MG/DL TRIGLYCERIDES (test code = 2232) 873 MG/DL HDL CHOLESTEROL (test code = 30 MG/DL 2220) CALC LDL CHOL (test code = 2237) (NOTE) MG/DL RISK RATIO LDL/HDL (test code = (NOTE) RATIO 2238) HEMOGLOBIN [id number] 00:00:00 Test Item Value Reference Range Interpretation Comments HEMOGLOBIN A1c (test code = 33053) 10.9 % HEMOGLOBIN [id number] 00:00:00 Test Item Value Reference Range Interpretation Comments HEMOGLOBIN A1c (test code = 23032) 10.9 % CULTURE, [id number] 00:00:00 Test Item Value Reference Range Interpretation Comments CULTURE, URINE (test SPECIMEN NUMBER: code = 01105) [id number] COMPREHENSIVE METABOLIC [id number] 00:00:00 Test Item Value Reference Range Interpretation Comments GLUCOSE (test code = 2217) 217 MG/DL BUN (test code = 2208) 13 MG/DL CREATININE (test code = 2214) 0.64 MG/DL eGFR AMER. (test code 128 ML/MIN/1.73 = 73553) eGFR NON- AMER. (test 110 ML/MIN/1.73 code = 42274) CALC BUN/CREAT (test code = 20 RATIO [...] (test code = 2219) 47 U/L CULTURE, [id number] 00:00:00 Test Item Value Reference Range Interpretation Comments CULTURE, URINE (test SPECIMEN NUMBER: code = 33815) [id number] COMPREHENSIVE METABOLIC [id number] 00:00:00 Test Item Value Reference Range Interpretation Comments GLUCOSE (test code = 2217) 217 MG/DL BUN (test code = 2208) 13 MG/DL CREATININE (test code = 2214) 0.64 MG/DL eGFR AMER. (test code 128 ML/MIN/1.73 = 00838) eGFR NON- AMER. (test 110 ML/MIN/1.73 code = 68773) CALC BUN/CREAT (test code = 20 RATIO [...] (test code = 2219) 47 U/L LIPID [id number] 00:00:00 Test Item Value Reference Range Interpretation Comments CHOLESTEROL (test code = 2210) 220 MG/DL TRIGLYCERIDES (test code = 2232) 873 MG/DL HDL CHOLESTEROL (test code = 30 MG/DL 2220) CALC LDL CHOL (test code = 2237) (NOTE) MG/DL RISK RATIO LDL/HDL (test code = (NOTE) RATIO 2238) LIPID [id number] 00:00:00 Test Item Value Reference Range Interpretation Comments CHOLESTEROL (test code = 2210) 220 MG/DL TRIGLYCERIDES (test code = 2232) 873 MG/DL HDL CHOLESTEROL (test code = 30 MG/DL 2220) CALC LDL CHOL (test code = 2237) (NOTE) MG/DL RISK RATIO LDL/HDL (test code = (NOTE) RATIO 2238) HEMOGLOBIN [id number] 00:00:00 Test Item Value Reference Range Interpretation Comments HEMOGLOBIN A1c (test code = 05183) 10.9 % HEMOGLOBIN [id number] 00:00:00 Test Item Value Reference Range Interpretation Comments HEMOGLOBIN A1c (test code = 63889) 10.9 % HEMOGLOBIN [id number] 00:00:00 Test Item Value Reference Range Interpretation Comments HEMOGLOBIN A1c (test code = 04525) 10.9 % CULTURE, [id number] 00:00:00 Test Item Value Reference Range Interpretation Comments CULTURE, URINE (test SPECIMEN NUMBER: code = 73775) [id number] COMPREHENSIVE METABOLIC [id number] 00:00:00 Test Item Value Reference Range Interpretation Comments GLUCOSE (test code = 2217) 217 MG/DL BUN (test code = 2208) 13 MG/DL CREATININE (test code = 2214) 0.64 MG/DL eGFR AMER. (test code 128 ML/MIN/1.73 = 10761) eGFR NON- AMER. (test 110 ML/MIN/1.73 code = 26613) CALC BUN/CREAT (test code = 20 RATIO [...] (test code = 2219) 47 U/L CULTURE, [id number] 00:00:00 Test Item Value Reference Range Interpretation Comments CULTURE, URINE (test SPECIMEN NUMBER: code = 32317) [id number] COMPREHENSIVE METABOLIC [id number] 00:00:00 Test Item Value Reference Range Interpretation Comments GLUCOSE (test code = 2217) 217 MG/DL BUN (test code = 2208) 13 MG/DL CREATININE (test code = 2214) 0.64 MG/DL eGFR AMER. (test code 128 ML/MIN/1.73 = 35164) eGFR NON- AMER. (test 110 ML/MIN/1.73 code = 89672) CALC BUN/CREAT (test code = 20 RATIO [...] (test code = 2219) 47 U/L LIPID [id number] 00:00:00 Test Item Value Reference Range Interpretation Comments CHOLESTEROL (test code = 2210) 220 MG/DL TRIGLYCERIDES (test code = 2232) 873 MG/DL HDL CHOLESTEROL (test code = 30 MG/DL 0) CALC LDL CHOL (test code = 2237) (NOTE) MG/DL RISK RATIO LDL/HDL (test code = (NOTE) RATIO 2238) LIPID [id number] 00:00:00 Test Item Value Reference Range Interpretation Comments CHOLESTEROL (test code = 2210) 220 MG/DL TRIGLYCERIDES (test code = 2232) 873 MG/DL HDL CHOLESTEROL (test code = 30 MG/DL 0) CALC LDL CHOL (test code = 2237) (NOTE) MG/DL RISK RATIO LDL/HDL (test code = (NOTE) RATIO 2238) HEMOGLOBIN [id number] 00:00:00 Test Item Value Reference Range Interpretation Comments HEMOGLOBIN A1c (test code = 93861) 10.9 % HEMOGLOBIN [id number] 00:00:00 Test Item Value Reference Range Interpretation Comments HEMOGLOBIN A1c (test code = 41323) 10.9 % HEMOGLOBIN [id number] 00:00:00 Test Item Value Reference Range Interpretation Comments HEMOGLOBIN A1c (test code = 70698) 10.9 % COMPREHENSIVE METABOLIC [id number] 00:00:00 Test Item Value Reference Range Interpretation Comments GLUCOSE (test code = 2217) 217 MG/DL BUN (test code = 2208) 13 MG/DL CREATININE (test code = 2214) 0.64 MG/DL eGFR AMER. (test code 128 ML/MIN/1.73 = 74871) eGFR NON- AMER. (test 110 ML/MIN/1.73 code = 27083) CALC BUN/CREAT (test code = 20 RATIO [...] (test code = 2219) 47 U/L CULTURE, [id number] 00:00:00 Test Item Value Reference Range Interpretation Comments CULTURE, URINE (test SPECIMEN NUMBER: code = 02596) [id number] COMPREHENSIVE METABOLIC [id number] 00:00:00 Test Item Value Reference Range Interpretation Comments GLUCOSE (test code = 2217) 217 MG/DL BUN (test code = 2208) 13 MG/DL CREATININE (test code = 2214) 0.64 MG/DL eGFR AMER. (test code 128 ML/MIN/1.73 = 87561) eGFR NON- AMER. (test 110 ML/MIN/1.73 code = 16891) CALC BUN/CREAT (test code = 20 RATIO [...] (test code = 2219) 47 U/L CULTURE, [id number] 00:00:00 Test Item Value Reference Range Interpretation Comments CULTURE, URINE (test SPECIMEN NUMBER: code = 92242) [id number] LIPID [id number] 00:00:00 Test Item Value Reference Range Interpretation Comments CHOLESTEROL (test code = 2210) 220 MG/DL TRIGLYCERIDES (test code = 2232) 873 MG/DL HDL CHOLESTEROL (test code = 30 MG/DL 2220) CALC LDL CHOL (test code = 2237) (NOTE) MG/DL RISK RATIO LDL/HDL (test code = (NOTE) RATIO 2238) LIPID [id number] 00:00:00 Test Item Value Reference Range Interpretation Comments CHOLESTEROL (test code = 2210) 220 MG/DL TRIGLYCERIDES (test code = 2232) 873 MG/DL HDL CHOLESTEROL (test code = 30 MG/DL 2220) CALC LDL CHOL (test code = 2237) (NOTE) MG/DL RISK RATIO LDL/HDL (test code = (NOTE) RATIO 2238) HEMOGLOBIN [id number] 00:00:00 Test Item Value Reference Range Interpretation Comments HEMOGLOBIN A1c (test code = 60444) 10.9 % HEMOGLOBIN [id number] 00:00:00 Test Item Value Reference Range Interpretation Comments HEMOGLOBIN A1c (test code = 62868) 10.9 % HEMOGLOBIN [id number] 00:00:00 Test Item Value Reference Range Interpretation Comments HEMOGLOBIN A1c (test code = 39736) 10.9 % - XR ANKLE 3 + V [id number] 07:19:00 Patient Name: Marge Franco Unit No: [id number] EXAMS: CPT CODE: [id number] XR ANKLE 3 + [place] RT [address] Right ankle 3 views COMMENT: There is [...] Technologist: SAMANTHA MORALES, RT(R) Transcribed D/ (07) tSCARL [facility] NAME: Marge Franco [address] [facility] PHYS: Judi Cardenas DO : 1980 AGE: 40 SEX: F [place], [place] [address] CT NO: [id number] LOC: TEOFILO PHONE #: [phone] EXAM DATE: 02/13/2020 STATUS: DEP ER FAX #: [phone] RAD #: D/C DT PAGE 1 Signed Report Patient Name: Marge Franco Unit No: [id number] EXAMS: CPT CODE: [id number] XR ANKLE 3 + V RT 58461 (Continued) Orig Print D/T: S: 02/14/2020 (721) [facility] NAME: Marge Franco [address] [facility] PHYS: Judi Cardenas DO : 1980 AGE: 40 SEX: F [place] [address] LOC: TEOFILO PHONE #: [phone] EXAM DATE: 02/13/2020 STATUS: DEP ER FAX #: [phone] RAD #: D/C DT PAGE 2 Signed Report- XR FOOT 2 VIEWS [id number] 07:19:00 Patient Name: Marge Franco Unit No: [id number] EXAMS: CPT CODE: [id number] XR FO[place] [address] [place] [address] Right ankle 3 views COMMENT: There is [...] SAMANTHA MORALES, RT(R) Transcribed D/ (718) NoelJCL [facility] NAME: Marge Franco [address] [facility] PHYS: Judi Cardenas DO : 1980 AGE: 40 SEX: F [place] [address] LOC: TEOFILO PHONE #: [phone] EXAM DATE: 02/13/2020 STATUS: DEP ER FAX #: [phone] RAD #: D/C DT PAGE 1 Signed Report Patient Name: Marge Franco Unit No: [id number] EXAM S: CPT CODE: [id number] XR FOOT 2 [place] [address] (Continued) Orig Print D/T: S: 02/14/2020 (721) [facility] NAME: Marge Franco [address] [facility] PHYS: Judi Cardenas DO : 1980 AGE: 40 SEX: F [place], [place] [address] LOC: TEOFILO PHONE #: [phone] EXAM DATE: 02/13/2020 STATUS: DEP ER FAX #: [phone] RAD #: D/C DT PAGE 2 Signed Report [id number] 11:17:00 Test Item Value Reference Range Interpretation Comments GLUBED (test code = GLUBED) 119 mg/dL 60-125 N [id number] 08:15:00 Test Item Value Reference Range Interpretation Comments GLUBED (test code = GLUBED) 117 mg/dL 60-125 N Novel Coronavirus 2019 [id number] 17:12:00 Test Item Value Reference Range Interpretation Comments Novel Coronavirus 2019 Inhouse (test Negative Negative code = COVNONPUI) Novel Coronavirus 2019 [id number] 17:12:00 Test Item Value Reference Range Interpretation Comments Novel Coronavirus 2019 Inhouse (test Negative Negative code = COVNONPUI) CBC W/AUTO [id number] 20:19:00 Test Item Value Reference Range Interpretation [...] 0-0 N code = NRBC) BASIC METABOLIC [id number] 19:54:00 Test Item Value Reference Range Interpretation [...] RATE (test code = GFR) mL/mi n/1.73 p2Rtqzoipap Range:Healthy A dults >90 mL/min/1.73 m2 For Chronic Kid stoney Disease: Stage II Mild Decrease i n GFR 60-90 Stage III Moderate Decrea se in GFR 30-59 Stage IV Severe Decrease in GFR 15-29 Stage V Kidney Failure <15 CREATININE (test code 0.83 mg/dL 0.55-1.30 N = CREAT) CALCIUM (test code = 9.6 mg/dL 8.2-10.1 N CA) - CT LOWER EXTRM W/O C [id number] 14:57:00 Patient Name: MARGE FRANCO Unit No: [id number] EXAMS: CPT CODE: [id number] [place] L[place] EXTR[place] W/[place] [address] [place] SCAN RIGHT ANKLE WITH RECONSTRUCTION DIAGNOSIS: [...] with ACR practice standards and adherence to doll wig hackler's recommendations. INDICATION: RIGHT ANKLE PAIN COMPARISON: None.COMMENT: Findings are as described above. at 1617 Reported and signed by: Josef Schuler MD CC: Elbert Wilson MD Technologist: Shaan Levine ns,RT(R) CTDI: DLP: Trnscrpt: 01/04/2020 (1603) t.SDR.GVG [facility] NAME: MARGE FRANCO [address] [facility] PHYS: Elbert Rodrigues MD : 1980 AGE: 39 SEX: F [place] [address] LOC: Y.RAD PHONE #: [phone] EXAM DATE: 01/04/2020 STATUS: REG CLI FAX #: [phone] RAD #: D/C DT PAGE 1 Signed Report Patient Name: MARGE FRANCO Unit No: [id number] EXAMS: CPT CODE: [id number] [place] LOWER EXTRM W/[place] [address] (Continued) Orig Print D/T: S: 01/04/2020 (1500) [facility] NAME: MARGE FRANCO [address] [facility] PHYS: Elbert Rodrigues MD : 1980 AGE: 39 SEX: F [place], [place] [address] LOC: Y.RAD PHONE #: [phone] EXAM DATE: 01/04/2020 STATUS: REG CLI FAX #: [phone] RAD #: D/C DT PAGE 2 Signed ReportCULTURE, URINE 2019-12-22 00:00:00 Test Item Value Reference Range Interpretation Comments CULTURE, URINE (test SPECIMEN NUMBER: code = 08937) [id number] CULTURE, [id number] 00:00:00 Test Item Value Reference Range Interpretation Comments CULTURE, URINE (test SPECIMEN NUMBER: code = 79670) [id number] CULTURE, [id number] 00:00:00 Test Item Value Reference Range Interpretation Comments CULTURE, URINE (test SPECIMEN NUMBER: code = 85756) [id number] CULTURE, [id number] 00:00:00 Test Item Value Reference Range Interpretation Comments CULTURE, URINE (test SPECIMEN NUMBER: code = 35316) [id number] CULTURE, [id number] 00:00:00 Test Item Value Reference Range Interpretation Comments CULTURE, URINE (test SPECIMEN NUMBER: code = 33160) [id number] CULTURE, [id number] 00:00:00 Test Item Value Reference Range Interpretation Comments CULTURE, URINE (test SPECIMEN NUMBER: code = 55734) [id number] CULTURE, [id number] 00:00:00 Test Item Value Reference Range Interpretation Comments CULTURE, URINE (test SPECIMEN NUMBER: code = 73844) [id number] CULTURE, [id number] 00:00:00 Test Item Value Reference Range Interpretation Comments CULTURE, URINE (test SPECIMEN NUMBER: code = 03639) [id number] CULTURE, [id number] 00:00:00 Test Item Value Reference Range Interpretation Comments CULTURE, URINE (test SPECIMEN NUMBER: code = 18029) [id number] CULTURE, [id number] 00:00:00 Test Item Value Reference Range Interpretation Comments CULTURE, URINE (test SPECIMEN NUMBER: code = 79500) [id number] CULTURE, [id number] 00:00:00 Test Item Value Reference Range Interpretation Comments CULTURE, URINE (test SPECIMEN NUMBER: code = 95456) [id number] CULTURE, [id number] 00:00:00 Test Item Value Reference Range Interpretation Comments CULTURE, URINE (test SPECIMEN NUMBER: code = 47972) [id number] CULTURE, [id number] 00:00:00 Test Item Value Reference Range Interpretation Comments CULTURE, URINE (test SPECIMEN NUMBER: code = 67641) [id number] CULTURE, [id number] 00:00:00 Test Item Value Reference Range Interpretation Comments CULTURE, URINE (test SPECIMEN NUMBER: code = 22861) [id number] CULTURE, [id number] 00:00:00 Test Item Value Reference Range Interpretation Comments CULTURE, URINE (test SPECIMEN NUMBER: code = 64773) [id number] CULTURE, [id number] 00:00:00 Test Item Value Reference Range Interpretation Comments CULTURE, URINE (test SPECIMEN NUMBER: code = 69863) [id number] CULTURE, [id number] 00:00:00 Test Item Value Reference Range Interpretation Comments CULTURE, URINE (test SPECIMEN NUMBER: code = 81254) [id number] CULTURE, [id number] 00:00:00 Test Item Value Reference Range Interpretation Comments CULTURE, URINE (test SPECIMEN NUMBER: code = 63147) [id number] CULTURE, [id number] 00:00:00 Test Item Value Reference Range Interpretation Comments CULTURE, URINE (test SPECIMEN NUMBER: code = 85255) [id number] CULTURE, [id number] 00:00:00 Test Item Value Reference Range Interpretation Comments CULTURE, URINE (test SPECIMEN NUMBER: code = 38618) [id number] CULTURE, [id number] 00:00:00 Test Item Value Reference Range Interpretation Comments CULTURE, URINE (test SPECIMEN NUMBER: code = 11840) [id number] LIPID [id number] 00:00:00 Test Item Value Reference Range Interpretation Comments CHOLESTEROL (test code = 2210) 354 MG/DL TRIGLYCERIDES (test code = 2232) 2608 MG/DL HDL CHOLESTEROL (test code = 19 MG/DL 2220) CALC LDL CHOL (test code = 2237) NOTE MG/DL RISK RATIO LDL/HDL (test code = (NOTE) RATIO 2238) LIPID [id number] 00:00:00 Test Item Value Reference Range Interpretation Comments CHOLESTEROL (test code = 2210) 354 MG/DL TRIGLYCERIDES (test code = 2232) 2608 MG/DL HDL CHOLESTEROL (test code = 19 MG/DL 2220) CALC LDL CHOL (test code = 2237) NOTE MG/DL RISK RATIO LDL/HDL (test code = (NOTE) RATIO 2238) HEMOGLOBIN [id number] 00:00:00 Test Item Value Reference Range Interpretation Comments HEMOGLOBIN A1c (test code = 91743) 11.5 % HEMOGLOBIN [id number] 00:00:00 Test Item Value Reference Range Interpretation Comments HEMOGLOBIN A1c (test code = 23806) 11.5 % HEMOGLOBIN [id number] 00:00:00 Test Item Value Reference Range Interpretation Comments HEMOGLOBIN A1c (test code = 75993) 11.5 % MICROALBUMIN/CREATININE, RANDOM AND [id number] 00:00:00 Test Item Value Reference Range Interpretation Comments CREATININE, URINE, CONC. (test 92.4 MG/DL code = 2072) ALBUMIN, URINE, RANDOM (test code 158.5 MG/DL = 47579) CALC ALBUMIN/CREAT, RND (test 1715 MG/G code = 61434) MICROALBUMIN/CREATININE, RANDOM AND [id number] 00:00:00 Test Item Value Reference Range Interpretation Comments CREATININE, URINE, CONC. (test 92.4 MG/DL code = 2072) ALBUMIN, URINE, RANDOM (test code 158.5 MG/DL = 37697) CALC ALBUMIN/CREAT, RND (test 1715 MG/G code = 49064) LIPID [id number] 00:00:00 Test Item Value Reference Range Interpretation Comments CHOLESTEROL (test code = 2210) 354 MG/DL TRIGLYCERIDES (test code = 2232) 2608 MG/DL HDL CHOLESTEROL (test code = 19 MG/DL 2220) CALC LDL CHOL (test code = 2237) NOTE MG/DL RISK RATIO LDL/HDL (test code = (NOTE) RATIO 2238) LIPID [id number] 00:00:00 Test Item Value Reference Range Interpretation Comments CHOLESTEROL (test code = 2210) 354 MG/DL TRIGLYCERIDES (test code = 2232) 2608 MG/DL HDL CHOLESTEROL (test code = 19 MG/DL 2220) CALC LDL CHOL (test code = 2237) NOTE MG/DL RISK RATIO LDL/HDL (test code = (NOTE) RATIO 2238) HEMOGLOBIN [id number] 00:00:00 Test Item Value Reference Range Interpretation Comments HEMOGLOBIN A1c (test code = 60647) 11.5 % HEMOGLOBIN [id number] 00:00:00 Test Item Value Reference Range Interpretation Comments HEMOGLOBIN A1c (test code = 71752) 11.5 % HEMOGLOBIN [id number] 00:00:00 Test Item Value Reference Range Interpretation Comments HEMOGLOBIN A1c (test code = 95871) 11.5 % MICROALBUMIN/CREATININE, RANDOM AND [id number] 00:00:00 Test Item Value Reference Range Interpretation Comments CREATININE, URINE, CONC. (test 92.4 MG/DL code = 2072) ALBUMIN, URINE, RANDOM (test code 158.5 MG/DL = 11003) CALC ALBUMIN/CREAT, RND (test 1715 MG/G code = 89248) MICROALBUMIN/CREATININE, RANDOM AND [id number] 00:00:00 Test Item Value Reference Range Interpretation Comments CREATININE, URINE, CONC. (test 92.4 MG/DL code = 2072) ALBUMIN, URINE, RANDOM (test code 158.5 MG/DL = 94838) CALC ALBUMIN/CREAT, RND (test 1715 MG/G code = 94822) LIPID [id number] 00:00:00 Test Item Value Reference Range Interpretation Comments CHOLESTEROL (test code = 2210) 354 MG/DL TRIGLYCERIDES (test code = 2232) 2608 MG/DL HDL CHOLESTEROL (test code = 19 MG/DL 2220) CALC LDL CHOL (test code = 2237) NOTE MG/DL RISK RATIO LDL/HDL (test code = (NOTE) RATIO 2238) LIPID [id number] 00:00:00 Test Item Value Reference Range Interpretation Comments CHOLESTEROL (test code = 2210) 354 MG/DL TRIGLYCERIDES (test code = 2232) 2608 MG/DL HDL CHOLESTEROL (test code = 19 MG/DL 2220) CALC LDL CHOL (test code = 2237) NOTE MG/DL RISK RATIO LDL/HDL (test code = (NOTE) RATIO 2238) HEMOGLOBIN [id number] 00:00:00 Test Item Value Reference Range Interpretation Comments HEMOGLOBIN A1c (test code = 86082) 11.5 % HEMOGLOBIN [id number] 00:00:00 Test Item Value Reference Range Interpretation Comments HEMOGLOBIN A1c (test code = 09337) 11.5 % HEMOGLOBIN [id number] 00:00:00 Test Item Value Reference Range Interpretation Comments HEMOGLOBIN A1c (test code = 18758) 11.5 % MICROALBUMIN/CREATININE, RANDOM AND [id number] 00:00:00 Test Item Value Reference Range Interpretation Comments CREATININE, URINE, CONC. (test 92.4 MG/DL code = 2072) ALBUMIN, URINE, RANDOM (test code 158.5 MG/DL = 64287) CALC ALBUMIN/CREAT, RND (test 1715 MG/G code = 31803) MICROALBUMIN/CREATININE, RANDOM AND [id number] 00:00:00 Test Item Value Reference Range Interpretation Comments CREATININE, URINE, CONC. (test 92.4 MG/DL code = 2072) ALBUMIN, URINE, RANDOM (test code 158.5 MG/DL = 71071) CALC ALBUMIN/CREAT, RND (test 1715 MG/G code = 59639) LIPID [id number] 00:00:00 Test Item Value Reference Range Interpretation Comments CHOLESTEROL (test code = 2210) 354 MG/DL TRIGLYCERIDES (test code = 2232) 2608 MG/DL HDL CHOLESTEROL (test code = 19 MG/DL 2220) CALC LDL CHOL (test code = 2237) NOTE MG/DL RISK RATIO LDL/HDL (test code = (NOTE) RATIO 2238) LIPID [id number] 00:00:00 Test Item Value Reference Range Interpretation Comments CHOLESTEROL (test code = 2210) 354 MG/DL TRIGLYCERIDES (test code = 2232) 2608 MG/DL HDL CHOLESTEROL (test code = 19 MG/DL 2220) CALC LDL CHOL (test code = 2237) NOTE MG/DL RISK RATIO LDL/HDL (test code = (NOTE) RATIO 2238) HEMOGLOBIN [id number] 00:00:00 Test Item Value Reference Range Interpretation Comments HEMOGLOBIN A1c (test code = 60426) 11.5 % HEMOGLOBIN [id number] 00:00:00 Test Item Value Reference Range Interpretation Comments HEMOGLOBIN A1c (test code = 98998) 11.5 % HEMOGLOBIN [id number] 00:00:00 Test Item Value Reference Range Interpretation Comments HEMOGLOBIN A1c (test code = 62565) 11.5 % MICROALBUMIN/CREATININE, RANDOM AND [id number] 00:00:00 Test Item Value Reference Range Interpretation Comments CREATININE, URINE, CONC. (test 92.4 MG/DL code = 2072) ALBUMIN, URINE, RANDOM (test code 158.5 MG/DL = 76648) CALC ALBUMIN/CREAT, RND (test 1715 MG/G code = 76307) MICROALBUMIN/CREATININE, RANDOM AND [id number] 00:00:00 Test Item Value Reference Range Interpretation Comments CREATININE, URINE, CONC. (test 92.4 MG/DL code = 2072) ALBUMIN, URINE, RANDOM (test code 158.5 MG/DL = 63617) CALC ALBUMIN/CREAT, RND (test 1715 MG/G code = 08892) LIPID [id number] 00:00:00 Test Item Value Reference Range Interpretation Comments CHOLESTEROL (test code = 2210) 354 MG/DL TRIGLYCERIDES (test code = 2232) 2608 MG/DL HDL CHOLESTEROL (test code = 19 MG/DL 2220) CALC LDL CHOL (test code = 2237) NOTE MG/DL RISK RATIO LDL/HDL (test code = (NOTE) RATIO 2238) LIPID [id number] 00:00:00 Test Item Value Reference Range Interpretation Comments CHOLESTEROL (test code = 2210) 354 MG/DL TRIGLYCERIDES (test code = 2232) 2608 MG/DL HDL CHOLESTEROL (test code = 19 MG/DL 2220) CALC LDL CHOL (test code = 2237) NOTE MG/DL RISK RATIO LDL/HDL (test code = (NOTE) RATIO 2238) HEMOGLOBIN [id number] 00:00:00 Test Item Value Reference Range Interpretation Comments HEMOGLOBIN A1c (test code = 18788) 11.5 % HEMOGLOBIN [id number] 00:00:00 Test Item Value Reference Range Interpretation Comments HEMOGLOBIN A1c (test code = 39484) 11.5 % HEMOGLOBIN [id number] 00:00:00 Test Item Value Reference Range Interpretation Comments HEMOGLOBIN A1c (test code = 14847) 11.5 % MICROALBUMIN/CREATININE, RANDOM AND [id number] 00:00:00 Test Item Value Reference Range Interpretation Comments CREATININE, URINE, CONC. (test 92.4 MG/DL code = 2072) ALBUMIN, URINE, RANDOM (test code 158.5 MG/DL = 53606) CALC ALBUMIN/CREAT, RND (test 1715 MG/G code = 05849) MICROALBUMIN/CREATININE, RANDOM AND [id number] 00:00:00 Test Item Value Reference Range Interpretation Comments CREATININE, URINE, CONC. (test 92.4 MG/DL code = 2072) ALBUMIN, URINE, RANDOM (test code 158.5 MG/DL = 14556) CALC ALBUMIN/CREAT, RND (test 1715 MG/G code = 47679) LIPID [id number] 00:00:00 Test Item Value Reference Range Interpretation Comments CHOLESTEROL (test code = 2210) 354 MG/DL TRIGLYCERIDES (test code = 2232) 2608 MG/DL HDL CHOLESTEROL (test code = 19 MG/DL 2220) CALC LDL CHOL (test code = 2237) NOTE MG/DL RISK RATIO LDL/HDL (test code = (NOTE) RATIO 2238) LIPID [id number] 00:00:00 Test Item Value Reference Range Interpretation Comments CHOLESTEROL (test code = 2210) 354 MG/DL TRIGLYCERIDES (test code = 2232) 2608 MG/DL HDL CHOLESTEROL (test code = 19 MG/DL 2220) CALC LDL CHOL (test code = 2237) NOTE MG/DL RISK RATIO LDL/HDL (test code = (NOTE) RATIO 2238) HEMOGLOBIN [id number] 00:00:00 Test Item Value Reference Range Interpretation Comments HEMOGLOBIN A1c (test code = 32668) 11.5 % HEMOGLOBIN [id number] 00:00:00 Test Item Value Reference Range Interpretation Comments HEMOGLOBIN A1c (test code = 15169) 11.5 % HEMOGLOBIN [id number] 00:00:00 Test Item Value Reference Range Interpretation Comments HEMOGLOBIN A1c (test code = 94745) 11.5 % MICROALBUMIN/CREATININE, RANDOM AND [id number] 00:00:00 Test Item Value Reference Range Interpretation Comments CREATININE, URINE, CONC. (test 92.4 MG/DL code = 2072) ALBUMIN, URINE, RANDOM (test code 158.5 MG/DL = 59677) CALC ALBUMIN/CREAT, RND (test 1715 MG/G code = 97749) MICROALBUMIN/CREATININE, RANDOM AND [id number] 00:00:00 Test Item Value Reference Range Interpretation Comments CREATININE, URINE, CONC. (test 92.4 MG/DL code = 2072) ALBUMIN, URINE, RANDOM (test code 158.5 MG/DL = 93132) CALC ALBUMIN/CREAT, RND (test 1715 MG/G code = 89947) LIPID [id number] 00:00:00 Test Item Value Reference Range Interpretation Comments CHOLESTEROL (test code = 2210) 354 MG/DL TRIGLYCERIDES (test code = 2232) 2608 MG/DL HDL CHOLESTEROL (test code = 19 MG/DL 2220) CALC LDL CHOL (test code = 2237) NOTE MG/DL RISK RATIO LDL/HDL (test code = (NOTE) RATIO 2238) LIPID [id number] 00:00:00 Test Item Value Reference Range Interpretation Comments CHOLESTEROL (test code = 2210) 354 MG/DL TRIGLYCERIDES (test code = 2232) 2608 MG/DL HDL CHOLESTEROL (test code = 19 MG/DL 2220) CALC LDL CHOL (test code = 2237) NOTE MG/DL RISK RATIO LDL/HDL (test code = (NOTE) RATIO 2238) HEMOGLOBIN [id number] 00:00:00 Test Item Value Reference Range Interpretation Comments HEMOGLOBIN A1c (test code = 65271) 11.5 % HEMOGLOBIN [id number] 00:00:00 Test Item Value Reference Range Interpretation Comments HEMOGLOBIN A1c (test code = 59020) 11.5 % HEMOGLOBIN [id number] 00:00:00 Test Item Value Reference Range Interpretation Comments HEMOGLOBIN A1c (test code = 38446) 11.5 % MICROALBUMIN/CREATININE, RANDOM AND [id number] 00:00:00 Test Item Value Reference Range Interpretation Comments CREATININE, URINE, CONC. (test 92.4 MG/DL code = 2072) ALBUMIN, URINE, RANDOM (test code 158.5 MG/DL = 81236) CALC ALBUMIN/CREAT, RND (test 1715 MG/G code = 13656) MICROALBUMIN/CREATININE, RANDOM AND [id number] 00:00:00 Test Item Value Reference Range Interpretation Comments CREATININE, URINE, CONC. (test 92.4 MG/DL code = 2072) ALBUMIN, URINE, RANDOM (test code 158.5 MG/DL = 52407) CALC ALBUMIN/CREAT, RND (test 1715 MG/G code = 07086) LIPID [id number] 00:00:00 Test Item Value Reference Range Interpretation Comments CHOLESTEROL (test code = 2210) 354 MG/DL TRIGLYCERIDES (test code = 2232) 2608 MG/DL HDL CHOLESTEROL (test code = 19 MG/DL 2220) CALC LDL CHOL (test code = 2237) NOTE MG/DL RISK RATIO LDL/HDL (test code = (NOTE) RATIO 2238) HEMOGLOBIN [id number] 00:00:00 Test Item Value Reference Range Interpretation Comments HEMOGLOBIN A1c (test code = 56312) 11.5 % HEMOGLOBIN [id number] 00:00:00 Test Item Value Reference Range Interpretation Comments HEMOGLOBIN A1c (test code = 01913) 11.5 % MICROALBUMIN/CREATININE, RANDOM AND [id number] 00:00:00 Test Item Value Reference Range Interpretation Comments CREATININE, URINE, CONC. (test 92.4 MG/DL code = 2072) ALBUMIN, URINE, RANDOM (test code 158.5 MG/DL = 98009) CALC ALBUMIN/CREAT, RND (test 1715 MG/G code = 29598) LIPID [id number] 00:00:00 Test Item Value Reference Range Interpretation Comments CHOLESTEROL (test code = 2210) 354 MG/DL TRIGLYCERIDES (test code = 2232) 2608 MG/DL HDL CHOLESTEROL (test code = 19 MG/DL 2220) CALC LDL CHOL (test code = 2237) NOTE MG/DL RISK RATIO LDL/HDL (test code = (NOTE) RATIO 2238) LIPID [id number] 00:00:00 Test Item Value Reference Range Interpretation Comments CHOLESTEROL (test code = 2210) 354 MG/DL TRIGLYCERIDES (test code = 2232) 2608 MG/DL HDL CHOLESTEROL (test code = 19 MG/DL 2220) CALC LDL CHOL (test code = 2237) NOTE MG/DL RISK RATIO LDL/HDL (test code = (NOTE) RATIO 2238) HEMOGLOBIN [id number] 00:00:00 Test Item Value Reference Range Interpretation Comments HEMOGLOBIN A1c (test code = 87955) 11.5 % HEMOGLOBIN [id number] 00:00:00 Test Item Value Reference Range Interpretation Comments HEMOGLOBIN A1c (test code = 43347) 11.5 % HEMOGLOBIN [id number] 00:00:00 Test Item Value Reference Range Interpretation Comments HEMOGLOBIN A1c (test code = 17418) 11.5 % MICROALBUMIN/CREATININE, RANDOM AND [id number] 00:00:00 Test Item Value Reference Range Interpretation Comments CREATININE, URINE, CONC. (test 92.4 MG/DL code = 2072) ALBUMIN, URINE, RANDOM (test code 158.5 MG/DL = 60052) CALC ALBUMIN/CREAT, RND (test 1715 MG/G code = 88690) MICROALBUMIN/CREATININE, RANDOM AND [id number] 00:00:00 Test Item Value Reference Range Interpretation Comments CREATININE, URINE, CONC. (test 92.4 MG/DL code = 2072) ALBUMIN, URINE, RANDOM (test code 158.5 MG/DL = 37983) CALC ALBUMIN/CREAT, RND (test 1715 MG/G code = 25923) LIPID [id number] 00:00:00 Test Item Value Reference Range Interpretation Comments CHOLESTEROL (test code = 2210) 354 MG/DL TRIGLYCERIDES (test code = 2232) 2608 MG/DL HDL CHOLESTEROL (test code = 19 MG/DL 2220) CALC LDL CHOL (test code = 2237) NOTE MG/DL RISK RATIO LDL/HDL (test code = (NOTE) RATIO 2238) LIPID [id number] 00:00:00 Test Item Value Reference Range Interpretation Comments CHOLESTEROL (test code = 2210) 354 MG/DL TRIGLYCERIDES (test code = 2232) 2608 MG/DL HDL CHOLESTEROL (test code = 19 MG/DL 2220) CALC LDL CHOL (test code = 2237) NOTE MG/DL RISK RATIO LDL/HDL (test code = (NOTE) RATIO 2238) HEMOGLOBIN [id number] 00:00:00 Test Item Value Reference Range Interpretation Comments HEMOGLOBIN A1c (test code = 10431) 11.5 % HEMOGLOBIN [id number] 00:00:00 Test Item Value Reference Range Interpretation Comments HEMOGLOBIN A1c (test code = 80118) 11.5 % HEMOGLOBIN [id number] 00:00:00 Test Item Value Reference Range Interpretation Comments HEMOGLOBIN A1c (test code = 44492) 11.5 % MICROALBUMIN/CREATININE, RANDOM AND [id number] 00:00:00 Test Item Value Reference Range Interpretation Comments CREATININE, URINE, CONC. (test 92.4 MG/DL code = 2072) ALBUMIN, URINE, RANDOM (test code 158.5 MG/DL = 88161) CALC ALBUMIN/CREAT, RND (test 1715 MG/G code = 96259) MICROALBUMIN/CREATININE, RANDOM AND [id number] 00:00:00 Test Item Value Reference Range Interpretation Comments CREATININE, URINE, CONC. (test 92.4 MG/DL code = 2072) ALBUMIN, URINE, RANDOM (test code 158.5 MG/DL = 61624) CALC ALBUMIN/CREAT, RND (test 1715 MG/G code = 57003) LIPID [id number] 00:00:00 Test Item Value Reference Range Interpretation Comments CHOLESTEROL (test code = 2210) 354 MG/DL TRIGLYCERIDES (test code = 2232) 2608 MG/DL HDL CHOLESTEROL (test code = 19 MG/DL 2220) CALC LDL CHOL (test code = 2237) NOTE MG/DL RISK RATIO LDL/HDL (test code = (NOTE) RATIO 2238) LIPID [id number] 00:00:00 Test Item Value Reference Range Interpretation Comments CHOLESTEROL (test code = 2210) 354 MG/DL TRIGLYCERIDES (test code = 2232) 2608 MG/DL HDL CHOLESTEROL (test code = 19 MG/DL 2220) CALC LDL CHOL (test code = 2237) NOTE MG/DL RISK RATIO LDL/HDL (test code = (NOTE) RATIO 2238) HEMOGLOBIN [id number] 00:00:00 Test Item Value Reference Range Interpretation Comments HEMOGLOBIN A1c (test code = 33961) 11.5 % HEMOGLOBIN [id number] 00:00:00 Test Item Value Reference Range Interpretation Comments HEMOGLOBIN A1c (test code = 60326) 11.5 % HEMOGLOBIN [id number] 00:00:00 Test Item Value Reference Range Interpretation Comments HEMOGLOBIN A1c (test code = 37824) 11.5 % MICROALBUMIN/CREATININE, RANDOM AND [id number] 00:00:00 Test Item Value Reference Range Interpretation Comments CREATININE, URINE, CONC. (test 92.4 MG/DL code = 2072) ALBUMIN, URINE, RANDOM (test code 158.5 MG/DL = 80180) CALC ALBUMIN/CREAT, RND (test 1715 MG/G code = 29950) MICROALBUMIN/CREATININE, RANDOM AND [id number] 00:00:00 Test Item Value Reference Range Interpretation Comments CREATININE, URINE, CONC. (test 92.4 MG/DL code = 2072) ALBUMIN, URINE, RANDOM (test code 158.5 MG/DL = 29895) CALC ALBUMIN/CREAT, RND (test 1715 MG/G code = 35467) CULTURE, [id number] 00:00:00 Test Item Value Reference Range Interpretation Comments CULTURE, URINE (test SPECIMEN NUMBER: code = 94159) [id number] CULTURE, [id number] 00:00:00 Test Item Value Reference Range Interpretation Comments CULTURE, URINE (test SPECIMEN NUMBER: code = 02840) [id number] CULTURE, [id number] 00:00:00 Test Item Value Reference Range Interpretation Comments CULTURE, URINE (test SPECIMEN NUMBER: code = 62161) [id number] CULTURE, [id number] 00:00:00 Test Item Value Reference Range Interpretation Comments CULTURE, URINE (test SPECIMEN NUMBER: code = 59916) [id number] CULTURE, [id number] 00:00:00 Test Item Value Reference Range Interpretation Comments CULTURE, URINE (test SPECIMEN NUMBER: code = 98314) [id number] CULTURE, [id number] 00:00:00 Test Item Value Reference Range Interpretation Comments CULTURE, URINE (test SPECIMEN NUMBER: code = 45548) [id number] CULTURE, [id number] 00:00:00 Test Item Value Reference Range Interpretation Comments CULTURE, URINE (test SPECIMEN NUMBER: code = 16455) [id number] CULTURE, [id number] 00:00:00 Test Item Value Reference Range Interpretation Comments CULTURE, URINE (test SPECIMEN NUMBER: code = 54182) [id number] CULTURE, [id number] 00:00:00 Test Item Value Reference Range Interpretation Comments CULTURE, URINE (test SPECIMEN NUMBER: code = 99532) [id number] CULTURE, [id number] 00:00:00 Test Item Value Reference Range Interpretation Comments CULTURE, URINE (test SPECIMEN NUMBER: code = 34817) [id number] CULTURE, [id number] 00:00:00 Test Item Value Reference Range Interpretation Comments CULTURE, URINE (test SPECIMEN NUMBER: code = 88852) [id number] CULTURE, [id number] 00:00:00 Test Item Value Reference Range Interpretation Comments CULTURE, URINE (test SPECIMEN NUMBER: code = 63236) [id number] CULTURE, [id number] 00:00:00 Test Item Value Reference Range Interpretation Comments CULTURE, URINE (test SPECIMEN NUMBER: code = 21483) [id number] CULTURE, [id number] 00:00:00 Test Item Value Reference Range Interpretation Comments CULTURE, URINE (test SPECIMEN NUMBER: code = 00413) [id number] CULTURE, [id number] 00:00:00 Test Item Value Reference Range Interpretation Comments CULTURE, URINE (test SPECIMEN NUMBER: code = 55001) [id number] CULTURE, [id number] 00:00:00 Test Item Value Reference Range Interpretation Comments CULTURE, URINE (test SPECIMEN NUMBER: code = 23170) [id number] CULTURE, [id number] 00:00:00 Test Item Value Reference Range Interpretation Comments CULTURE, URINE (test SPECIMEN NUMBER: code = 25204) [id number] CULTURE, [id number] 00:00:00 Test Item Value Reference Range Interpretation Comments CULTURE, URINE (test SPECIMEN NUMBER: code = 11786) [id number] CULTURE, [id number] 00:00:00 Test Item Value Reference Range Interpretation Comments CULTURE, URINE (test SPECIMEN NUMBER: code = 86015) [id number] CULTURE, [id number] 00:00:00 Test Item Value Reference Range Interpretation Comments CULTURE, URINE (test SPECIMEN NUMBER: code = 73976) [id number] CULTURE, [id number] 00:00:00 Test Item Value Reference Range Interpretation Comments CULTURE, URINE (test SPECIMEN NUMBER: code = 40572) [id number] VAGINAL PATHOGENS DNA [id number] 00:00:00 Test Item Value Reference Range Interpretation Comments ANDIE SPECIES (test code = 39998) POSITIVE G. VAGINALIS (test code = 91344) NEGATIVE T. VAGINALIS (test code = 43344) NEGATIVE VAGINAL PATHOGENS DNA [id number] 00:00:00 Test Item Value Reference Range Interpretation Comments ANDIE SPECIES (test code = 51913) POSITIVE G. VAGINALIS (test code = 14788) NEGATIVE T. VAGINALIS (test code = 91538) NEGATIVE VAGINAL PATHOGENS DNA [id number] 00:00:00 Test Item Value Reference Range Interpretation Comments ANDIE SPECIES (test code = 19343) POSITIVE G. VAGINALIS (test code = 34406) NEGATIVE T. VAGINALIS (test code = 47148) NEGATIVE VAGINAL PATHOGENS DNA [id number] 00:00:00 Test Item Value Reference Range Interpretation Comments ANDIE SPECIES (test code = 40415) POSITIVE G. VAGINALIS (test code = 94983) NEGATIVE T. VAGINALIS (test code = 76274) NEGATIVE VAGINAL PATHOGENS DNA [id number] 00:00:00 Test Item Value Reference Range Interpretation Comments ANDIE SPECIES (test code = 34466) POSITIVE G. VAGINALIS (test code = 99881) NEGATIVE T. VAGINALIS (test code = 51609) NEGATIVE VAGINAL PATHOGENS DNA [id number] 00:00:00 Test Item Value Reference Range Interpretation Comments ANDIE SPECIES (test code = 65510) POSITIVE G. VAGINALIS (test code = 85985) NEGATIVE T. VAGINALIS (test code = 08980) NEGATIVE VAGINAL PATHOGENS DNA [id number] 00:00:00 Test Item Value Reference Range Interpretation Comments ANDIE SPECIES (test code = 19954) POSITIVE G. VAGINALIS (test code = 45508) NEGATIVE T. VAGINALIS (test code = 29761) NEGATIVE VAGINAL PATHOGENS DNA [id number] 00:00:00 Test Item Value Reference Range Interpretation Comments ANDIE SPECIES (test code = 32599) POSITIVE G. VAGINALIS (test code = 58935) NEGATIVE T. VAGINALIS (test code = 11846) NEGATIVE VAGINAL PATHOGENS DNA [id number] 00:00:00 Test Item Value Reference Range Interpretation Comments ANDIE SPECIES (test code = 04415) POSITIVE G. VAGINALIS (test code = 85231) NEGATIVE T. VAGINALIS (test code = 29025) NEGATIVE VAGINAL PATHOGENS DNA [id number] 00:00:00 Test Item Value Reference Range Interpretation Comments ANDIE SPECIES (test code = 07619) POSITIVE G. VAGINALIS (test code = 23208) NEGATIVE T. VAGINALIS (test code = 48644) NEGATIVE VAGINAL PATHOGENS DNA [id number] 00:00:00 Test Item Value Reference Range Interpretation Comments ANDIE SPECIES (test code = 76617) POSITIVE G. VAGINALIS (test code = 64726) NEGATIVE T. VAGINALIS (test code = 22699) NEGATIVE VAGINAL PATHOGENS DNA [id number] 00:00:00 Test Item Value Reference Range Interpretation Comments ANDIE SPECIES (test code = 08903) POSITIVE G. VAGINALIS (test code = 91810) NEGATIVE T. VAGINALIS (test code = 27278) NEGATIVE VAGINAL PATHOGENS DNA [id number] 00:00:00 Test Item Value Reference Range Interpretation Comments ANDIE SPECIES (test code = 33462) POSITIVE G. VAGINALIS (test code = 54654) NEGATIVE T. VAGINALIS (test code = 67943) NEGATIVE VAGINAL PATHOGENS DNA [id number] 00:00:00 Test Item Value Reference Range Interpretation Comments ANDIE SPECIES (test code = 54812) POSITIVE G. VAGINALIS (test code = 10730) NEGATIVE T. VAGINALIS (test code = 26146) NEGATIVE VAGINAL PATHOGENS DNA [id number] 00:00:00 Test Item Value Reference Range Interpretation Comments ANDIE SPECIES (test code = 67499) POSITIVE G. VAGINALIS (test code = 00569) NEGATIVE T. VAGINALIS (test code = 59211) NEGATIVE VAGINAL PATHOGENS DNA [id number] 00:00:00 Test Item Value Reference Range Interpretation Comments ANDIE SPECIES (test code = 75505) POSITIVE G. VAGINALIS (test code = 82236) NEGATIVE T. VAGINALIS (test code = 25159) NEGATIVE VAGINAL PATHOGENS DNA [id number] 00:00:00 Test Item Value Reference Range Interpretation Comments ANDIE SPECIES (test code = 88053) POSITIVE G. VAGINALIS (test code = 88564) NEGATIVE T. VAGINALIS (test code = 56990) NEGATIVE VAGINAL PATHOGENS DNA [id number] 00:00:00 Test Item Value Reference Range Interpretation Comments ANDIE SPECIES (test code = 11713) POSITIVE G. VAGINALIS (test code = 81233) NEGATIVE T. VAGINALIS (test code = 18000) NEGATIVE VAGINAL PATHOGENS DNA [id number] 00:00:00 Test Item Value Reference Range Interpretation Comments ANDIE SPECIES (test code = 43875) POSITIVE G. VAGINALIS (test code = 91224) NEGATIVE T. VAGINALIS (test code = 42298) NEGATIVE VAGINAL PATHOGENS DNA [id number] 00:00:00 Test Item Value Reference Range Interpretation Comments ANDIE SPECIES (test code = 33418) POSITIVE G. VAGINALIS (test code = 70479) NEGATIVE T. VAGINALIS (test code = 19228) NEGATIVE VAGINAL PATHOGENS DNA [id number] 00:00:00 Test Item Value Reference Range Interpretation Comments ANDIE SPECIES (test code = 99469) POSITIVE G. VAGINALIS (test code = 43224) NEGATIVE T. VAGINALIS (test code = 95528) NEGATIVE VAGINAL PATHOGENS DNA [id number] 00:00:00 Test Item Value Reference Range Interpretation Comments ANDIE SPECIES (test code = 97814) NEGATIVE G. VAGINALIS (test code = 85681) NEGATIVE T. VAGINALIS (test code = 09076) NEGATIVE VAGINAL PATHOGENS DNA [id number] 00:00:00 Test Item Value Reference Range Interpretation Comments ANDIE SPECIES (test code = ) NEGATIVE G. VAGINALIS (test code = 58307) NEGATIVE T. VAGINALIS (test code = 32542) NEGATIVE VAGINAL PATHOGENS DNA [id number] 00:00:00 Test Item Value Reference Range Interpretation Comments ANDIE SPECIES (test code = 23715) NEGATIVE G. VAGINALIS (test code = 05754) NEGATIVE T. VAGINALIS (test code = 25997) NEGATIVE VAGINAL PATHOGENS DNA [id number] 00:00:00 Test Item Value Reference Range Interpretation Comments ANDIE SPECIES (test code = 10736) NEGATIVE G. VAGINALIS (test code = 63100) NEGATIVE T. VAGINALIS (test code = 12987) NEGATIVE VAGINAL PATHOGENS DNA [id number] 00:00:00 Test Item Value Reference Range Interpretation Comments ANDIE SPECIES (test code = 15232) NEGATIVE G. VAGINALIS (test code = 64917) NEGATIVE T. VAGINALIS (test code = 31864) NEGATIVE VAGINAL PATHOGENS DNA [id number] 00:00:00 Test Item Value Reference Range Interpretation Comments ANDIE SPECIES (test code = 04148) NEGATIVE G. VAGINALIS (test code = 23371) NEGATIVE T. VAGINALIS (test code = 61057) NEGATIVE VAGINAL PATHOGENS DNA [id number] 00:00:00 Test Item Value Reference Range Interpretation Comments ANDIE SPECIES (test code = ) NEGATIVE G. VAGINALIS (test code = 95215) NEGATIVE T. VAGINALIS (test code = 02309) NEGATIVE VAGINAL PATHOGENS DNA [id number] 00:00:00 Test Item Value Reference Range Interpretation Comments ANDIE SPECIES (test code = 48896) NEGATIVE G. VAGINALIS (test code = 01112) NEGATIVE T. VAGINALIS (test code = 19452) NEGATIVE VAGINAL PATHOGENS DNA [id number] 00:00:00 Test Item Value Reference Range Interpretation Comments ANDIE SPECIES (test code = 82118) NEGATIVE G. VAGINALIS (test code = 49620) NEGATIVE T. VAGINALIS (test code = 53533) NEGATIVE VAGINAL PATHOGENS DNA [id number] 00:00:00 Test Item Value Reference Range Interpretation Comments ANDIE SPECIES (test code = 10597) NEGATIVE G. VAGINALIS (test code = 70447) NEGATIVE T. VAGINALIS (test code = 33795) NEGATIVE VAGINAL PATHOGENS DNA [id number] 00:00:00 Test Item Value Reference Range Interpretation Comments ANDIE SPECIES (test code = 85927) NEGATIVE G. VAGINALIS (test code = 99187) NEGATIVE T. VAGINALIS (test code = 03267) NEGATIVE VAGINAL PATHOGENS DNA [id number] 00:00:00 Test Item Value Reference Range Interpretation Comments ANDIE SPECIES (test code = 43147) NEGATIVE G. VAGINALIS (test code = 77819) NEGATIVE T. VAGINALIS (test code = 15672) NEGATIVE VAGINAL PATHOGENS DNA [id number] 00:00:00 Test Item Value Reference Range Interpretation Comments ANDIE SPECIES (test code = 74037) NEGATIVE G. VAGINALIS (test code = 44142) NEGATIVE T. VAGINALIS (test code = 18604) NEGATIVE VAGINAL PATHOGENS DNA [id number] 00:00:00 Test Item Value Reference Range Interpretation Comments ANDIE SPECIES (test code = 72234) NEGATIVE G. VAGINALIS (test code = 89086) NEGATIVE T. VAGINALIS (test code = 20451) NEGATIVE VAGINAL PATHOGENS DNA [id number] 00:00:00 Test Item Value Reference Range Interpretation Comments ANDIE SPECIES (test code = 94458) NEGATIVE G. VAGINALIS (test code = 81125) NEGATIVE T. VAGINALIS (test code = 84194) NEGATIVE VAGINAL PATHOGENS DNA [id number] 00:00:00 Test Item Value Reference Range Interpretation Comments ANDIE SPECIES (test code = 90405) NEGATIVE G. VAGINALIS (test code = 17382) NEGATIVE T. VAGINALIS (test code = 49768) NEGATIVE VAGINAL PATHOGENS DNA [id number] 00:00:00 Test Item Value Reference Range Interpretation Comments ANDIE SPECIES (test code = 44192) NEGATIVE G. VAGINALIS (test code = 63251) NEGATIVE T. VAGINALIS (test code = 54972) NEGATIVE VAGINAL PATHOGENS DNA [id number] 00:00:00 Test Item Value Reference Range Interpretation Comments ANDIE SPECIES (test code = 43659) NEGATIVE G. VAGINALIS (test code = 89308) NEGATIVE T. VAGINALIS (test code = 96951) NEGATIVE VAGINAL PATHOGENS DNA [id number] 00:00:00 Test Item Value Reference Range Interpretation Comments ANDIE SPECIES (test code = 20140) NEGATIVE G. VAGINALIS (test code = 47050) NEGATIVE T. VAGINALIS (test code = 92888) NEGATIVE VAGINAL PATHOGENS DNA [id number] 00:00:00 Test Item Value Reference Range Interpretation Comments ANDIE SPECIES (test code = 94997) NEGATIVE G. VAGINALIS (test code = 94780) NEGATIVE T. VAGINALIS (test code = 21394) NEGATIVE VAGINAL PATHOGENS DNA [id number] 00:00:00 Test Item Value Reference Range Interpretation Comments ANDIE SPECIES (test code = 80203) NEGATIVE G. VAGINALIS (test code = 79904) NEGATIVE T. VAGINALIS (test code = 39732) NEGATIVE VAGINAL PATHOGENS DNA [id number] 00:00:00 Test Item Value Reference Range Interpretation Comments ANDIE SPECIES (test code = 93359) NEGATIVE G. VAGINALIS (test code = 16099) POSITIVE T. VAGINALIS (test code = 99111) NEGATIVE VAGINAL PATHOGENS DNA [id number] 00:00:00 Test Item Value Reference Range Interpretation Comments ANDIE SPECIES (test code = 09333) NEGATIVE G. VAGINALIS (test code = 28344) POSITIVE T. VAGINALIS (test code = 48667) NEGATIVE VAGINAL PATHOGENS DNA [id number] 00:00:00 Test Item Value Reference Range Interpretation Comments ANDIE SPECIES (test code = 01584) NEGATIVE G. VAGINALIS (test code = 22390) POSITIVE T. VAGINALIS (test code = 77827) NEGATIVE VAGINAL PATHOGENS DNA [id number] 00:00:00 Test Item Value Reference Range Interpretation Comments ANDIE SPECIES (test code = 52091) NEGATIVE G. VAGINALIS (test code = 84488) POSITIVE T. VAGINALIS (test code = 92286) NEGATIVE VAGINAL PATHOGENS DNA [id number] 00:00:00 Test Item Value Reference Range Interpretation Comments ANDIE SPECIES (test code = 11615) NEGATIVE G. VAGINALIS (test code = 09016) POSITIVE T. VAGINALIS (test code = 56462) NEGATIVE VAGINAL PATHOGENS DNA [id number] 00:00:00 Test Item Value Reference Range Interpretation Comments ANDIE SPECIES (test code = 45494) NEGATIVE G. VAGINALIS (test code = 22578) POSITIVE T. VAGINALIS (test code = 01129) NEGATIVE VAGINAL PATHOGENS DNA [id number] 00:00:00 Test Item Value Reference Range Interpretation Comments ANDIE SPECIES (test code = 34627) NEGATIVE G. VAGINALIS (test code = 90825) POSITIVE T. VAGINALIS (test code = 08741) NEGATIVE VAGINAL PATHOGENS DNA [id number] 00:00:00 Test Item Value Reference Range Interpretation Comments ANDIE SPECIES (test code = 12240) NEGATIVE G. VAGINALIS (test code = 29431) POSITIVE T. VAGINALIS (test code = 45360) NEGATIVE VAGINAL PATHOGENS DNA [id number] 00:00:00 Test Item Value Reference Range Interpretation Comments ANDIE SPECIES (test code = 23928) NEGATIVE G. VAGINALIS (test code = 10922) POSITIVE T. VAGINALIS (test code = 22455) NEGATIVE VAGINAL PATHOGENS DNA [id number] 00:00:00 Test Item Value Reference Range Interpretation Comments ANDIE SPECIES (test code = 28868) NEGATIVE G. VAGINALIS (test code = 05754) POSITIVE T. VAGINALIS (test code = 13684) NEGATIVE VAGINAL PATHOGENS DNA [id number] 00:00:00 Test Item Value Reference Range Interpretation Comments ANDIE SPECIES (test code = 88879) NEGATIVE G. VAGINALIS (test code = 88642) POSITIVE T. VAGINALIS (test code = 37487) NEGATIVE VAGINAL PATHOGENS DNA [id number] 00:00:00 Test Item Value Reference Range Interpretation Comments ANDIE SPECIES (test code = 84252) NEGATIVE G. VAGINALIS (test code = 46535) POSITIVE T. VAGINALIS (test code = 05913) NEGATIVE VAGINAL PATHOGENS DNA [id number] 00:00:00 Test Item Value Reference Range Interpretation Comments ANDIE SPECIES (test code = 30621) NEGATIVE G. VAGINALIS (test code = 89581) POSITIVE T. VAGINALIS (test code = 61529) NEGATIVE VAGINAL PATHOGENS DNA [id number] 00:00:00 Test Item Value Reference Range Interpretation Comments ANDIE SPECIES (test code = 53762) NEGATIVE G. VAGINALIS (test code = 69277) POSITIVE T. VAGINALIS (test code = 95667) NEGATIVE VAGINAL PATHOGENS DNA [id number] 00:00:00 Test Item Value Reference Range Interpretation Comments ANDIE SPECIES (test code = 22606) NEGATIVE G. VAGINALIS (test code = 85933) POSITIVE T. VAGINALIS (test code = 98205) NEGATIVE VAGINAL PATHOGENS DNA [id number] 00:00:00 Test Item Value Reference Range Interpretation Comments ANDIE SPECIES (test code = 62087) NEGATIVE G. VAGINALIS (test code = 84964) POSITIVE T. VAGINALIS (test code = 00443) NEGATIVE VAGINAL PATHOGENS DNA [id number] 00:00:00 Test Item Value Reference Range Interpretation Comments ANDIE SPECIES (test code = 96323) NEGATIVE G. VAGINALIS (test code = 74219) POSITIVE T. VAGINALIS (test code = 38301) NEGATIVE VAGINAL PATHOGENS DNA [id number] 00:00:00 Test Item Value Reference Range Interpretation Comments ANDIE SPECIES (test code = 97380) NEGATIVE G. VAGINALIS (test code = 36591) POSITIVE T. VAGINALIS (test code = 04900) NEGATIVE VAGINAL PATHOGENS DNA [id number] 00:00:00 Test Item Value Reference Range Interpretation Comments ANDIE SPECIES (test code = 85707) NEGATIVE G. VAGINALIS (test code = 45335) POSITIVE T. VAGINALIS (test code = 23074) NEGATIVE VAGINAL PATHOGENS DNA [id number] 00:00:00 Test Item Value Reference Range Interpretation Comments ANDIE SPECIES (test code = 96450) NEGATIVE G. VAGINALIS (test code = 47679) POSITIVE T. VAGINALIS (test code = 76763) NEGATIVE VAGINAL PATHOGENS DNA [id number] 00:00:00 Test Item Value Reference Range Interpretation Comments ANDIE SPECIES (test code = 47425) NEGATIVE G. VAGINALIS (test code = 36453) POSITIVE T. VAGINALIS (test code = 20349) NEGATIVE COMPREHENSIVE METABOLIC [id number] 00:00:00 Test Item Value Reference Range Interpretation Comments GLUCOSE (test code = 2217) 353 MG/DL BUN (test code = 2208) 27 MG/DL CREATININE (test code = 2214) 0.90 MG/DL eGFR AMER. (test code 92 ML/MIN/1.73 = 94781) eGFR NON- AMER. (test 79 ML/MIN/1.73 code = 35277) CALC BUN/CREAT (test code = 30 RATIO [...] code = 2219) 18 U/L COMPREHENSIVE METABOLIC [id number] 00:00:00 Test Item Value Reference Range Interpretation Comments GLUCOSE (test code = 2217) 353 MG/DL BUN (test code = 2208) 27 MG/DL CREATININE (test code = 2214) 0.90 MG/DL eGFR AMER. (test code 92 ML/MIN/1.73 = 13328) eGFR NON- AMER. (test 79 ML/MIN/1.73 code = 16112) CALC BUN/CREAT (test code = 30 RATIO [...] (test code = 2219) 18 U/L LIPID [id number] 00:00:00 Test Item Value Reference Range Interpretation Comments CHOLESTEROL (test code = 2210) 412 MG/DL TRIGLYCERIDES (test code = 2232) 2520 MG/DL HDL CHOLESTEROL (test code = 16 MG/DL 2220) CALC LDL CHOL (test code = 2237) NOTE MG/DL RISK RATIO LDL/HDL (test code = (NOTE) RATIO 2238) LIPID [id number] 00:00:00 Test Item Value Reference Range Interpretation Comments CHOLESTEROL (test code = 2210) 412 MG/DL TRIGLYCERIDES (test code = 2232) 2520 MG/DL HDL CHOLESTEROL (test code = 16 MG/DL 2220) CALC LDL CHOL (test code = 2237) NOTE MG/DL RISK RATIO LDL/HDL (test code = (NOTE) RATIO 2238) HEMOGLOBIN [id number] 00:00:00 Test Item Value Reference Range Interpretation Comments HEMOGLOBIN A1c (test code = 60377) 10.7 % HEMOGLOBIN [id number] 00:00:00 Test Item Value Reference Range Interpretation Comments HEMOGLOBIN A1c (test code = 77479) 10.7 % HEMOGLOBIN [id number] 00:00:00 Test Item Value Reference Range Interpretation Comments HEMOGLOBIN A1c (test code = 13186) 10.7 % [id number] 00:00:00 Test Item Value Reference Range Interpretation Comments TSH, THIRD GENERATION (test code 0.777 UIU/ML = 2821) [id number] 00:00:00 Test Item Value Reference Range Interpretation Comments TSH, THIRD GENERATION (test code 0.777 UIU/ML = 2821) [id number] 00:00:00 Test Item Value Reference Range Interpretation Comments TSH, THIRD GENERATION (test code 0.777 UIU/ML = 2821) MICROALBUMIN/CREATININE, RANDOM AND [id number] 00:00:00 Test Item Value Reference Range Interpretation Comments CREATININE, URINE, CONC. (test 127.3 MG/DL code = 2072) ALBUMIN, URINE, RANDOM (test code 65.2 MG/DL = 08208) CALC ALBUMIN/CREAT, RND (test 512 MG/G code = 61591) MICROALBUMIN/CREATININE, RANDOM AND [id number] 00:00:00 Test Item Value Reference Range Interpretation Comments CREATININE, URINE, CONC. (test 127.3 MG/DL code = 2072) ALBUMIN, URINE, RANDOM (test code 65.2 MG/DL = 62451) CALC ALBUMIN/CREAT, RND (test 512 MG/G code = 48493) COMPREHENSIVE METABOLIC [id number] 00:00:00 Test Item Value Reference Range Interpretation Comments GLUCOSE (test code = 2217) 353 MG/DL BUN (test code = 2208) 27 MG/DL CREATININE (test code = 2214) 0.90 MG/DL eGFR AMER. (test code 92 ML/MIN/1.73 = 79437) eGFR NON- AMER. (test 79 ML/MIN/1.73 code = 88192) CALC BUN/CREAT (test code = 30 RATIO [...] code = 2219) 18 U/L COMPREHENSIVE METABOLIC [id number] 00:00:00 Test Item Value Reference Range Interpretation Comments GLUCOSE (test code = 2217) 353 MG/DL BUN (test code = 2208) 27 MG/DL CREATININE (test code = 2214) 0.90 MG/DL eGFR AMER. (test code 92 ML/MIN/1.73 = 89799) eGFR NON- AMER. (test 79 ML/MIN/1.73 code = 64866) CALC BUN/CREAT (test code = 30 RATIO [...] (test code = 2219) 18 U/L LIPID [id number] 00:00:00 Test Item Value Reference Range Interpretation Comments CHOLESTEROL (test code = 2210) 412 MG/DL TRIGLYCERIDES (test code = 2232) 2520 MG/DL HDL CHOLESTEROL (test code = 16 MG/DL 2220) CALC LDL CHOL (test code = 2237) NOTE MG/DL RISK RATIO LDL/HDL (test code = (NOTE) RATIO 2238) LIPID [id number] 00:00:00 Test Item Value Reference Range Interpretation Comments CHOLESTEROL (test code = 2210) 412 MG/DL TRIGLYCERIDES (test code = 2232) 2520 MG/DL HDL CHOLESTEROL (test code = 16 MG/DL 2220) CALC LDL CHOL (test code = 2237) NOTE MG/DL RISK RATIO LDL/HDL (test code = (NOTE) RATIO 2238) HEMOGLOBIN [id number] 00:00:00 Test Item Value Reference Range Interpretation Comments HEMOGLOBIN A1c (test code = 45101) 10.7 % HEMOGLOBIN [id number] 00:00:00 Test Item Value Reference Range Interpretation Comments HEMOGLOBIN A1c (test code = 05271) 10.7 % HEMOGLOBIN [id number] 00:00:00 Test Item Value Reference Range Interpretation Comments HEMOGLOBIN A1c (test code = 47424) 10.7 % [id number] 00:00:00 Test Item Value Reference Range Interpretation Comments TSH, THIRD GENERATION (test code 0.777 UIU/ML = 2821) [id number] 00:00:00 Test Item Value Reference Range Interpretation Comments TSH, THIRD GENERATION (test code 0.777 UIU/ML = 2821) [id number] 00:00:00 Test Item Value Reference Range Interpretation Comments TSH, THIRD GENERATION (test code 0.777 UIU/ML = 2821) MICROALBUMIN/CREATININE, RANDOM AND [id number] 00:00:00 Test Item Value Reference Range Interpretation Comments CREATININE, URINE, CONC. (test 127.3 MG/DL code = 2072) ALBUMIN, URINE, RANDOM (test code 65.2 MG/DL = 75525) CALC ALBUMIN/CREAT, RND (test 512 MG/G code = 46653) MICROALBUMIN/CREATININE, RANDOM AND [id number] 00:00:00 Test Item Value Reference Range Interpretation Comments CREATININE, URINE, CONC. (test 127.3 MG/DL code = 2072) ALBUMIN, URINE, RANDOM (test code 65.2 MG/DL = 70761) CALC ALBUMIN/CREAT, RND (test 512 MG/G code = 92600) COMPREHENSIVE METABOLIC [id number] 00:00:00 Test Item Value Reference Range Interpretation Comments GLUCOSE (test code = 2217) 353 MG/DL BUN (test code = 2208) 27 MG/DL CREATININE (test code = 2214) 0.90 MG/DL eGFR AMER. (test code 92 ML/MIN/1.73 = 80021) eGFR NON- AMER. (test 79 ML/MIN/1.73 code = 36573) CALC BUN/CREAT (test code = 30 RATIO [...] code = 2219) 18 U/L COMPREHENSIVE METABOLIC [id number] 00:00:00 Test Item Value Reference Range Interpretation Comments GLUCOSE (test code = 2217) 353 MG/DL BUN (test code = 2208) 27 MG/DL CREATININE (test code = 2214) 0.90 MG/DL eGFR AMER. (test code 92 ML/MIN/1.73 = 44213) eGFR NON- AMER. (test 79 ML/MIN/1.73 code = 27293) CALC BUN/CREAT (test code = 30 RATIO [...] (test code = 2219) 18 U/L LIPID [id number] 00:00:00 Test Item Value Reference Range Interpretation Comments CHOLESTEROL (test code = 2210) 412 MG/DL TRIGLYCERIDES (test code = 2232) 2520 MG/DL HDL CHOLESTEROL (test code = 16 MG/DL 2220) CALC LDL CHOL (test code = 2237) NOTE MG/DL RISK RATIO LDL/HDL (test code = (NOTE) RATIO 2238) LIPID [id number] 00:00:00 Test Item Value Reference Range Interpretation Comments CHOLESTEROL (test code = 2210) 412 MG/DL TRIGLYCERIDES (test code = 2232) 2520 MG/DL HDL CHOLESTEROL (test code = 16 MG/DL 2220) CALC LDL CHOL (test code = 2237) NOTE MG/DL RISK RATIO LDL/HDL (test code = (NOTE) RATIO 2238) HEMOGLOBIN [id number] 00:00:00 Test Item Value Reference Range Interpretation Comments HEMOGLOBIN A1c (test code = 66139) 10.7 % HEMOGLOBIN [id number] 00:00:00 Test Item Value Reference Range Interpretation Comments HEMOGLOBIN A1c (test code = 77398) 10.7 % HEMOGLOBIN [id number] 00:00:00 Test Item Value Reference Range Interpretation Comments HEMOGLOBIN A1c (test code = 06955) 10.7 % [id number] 00:00:00 Test Item Value Reference Range Interpretation Comments TSH, THIRD GENERATION (test code 0.777 UIU/ML = 2821) [id number] 00:00:00 Test Item Value Reference Range Interpretation Comments TSH, THIRD GENERATION (test code 0.777 UIU/ML = 2821) [id number] 00:00:00 Test Item Value Reference Range Interpretation Comments TSH, THIRD GENERATION (test code 0.777 UIU/ML = 2821) MICROALBUMIN/CREATININE, RANDOM AND [id number] 00:00:00 Test Item Value Reference Range Interpretation Comments CREATININE, URINE, CONC. (test 127.3 MG/DL code = 2072) ALBUMIN, URINE, RANDOM (test code 65.2 MG/DL = 32764) CALC ALBUMIN/CREAT, RND (test 512 MG/G code = 70961) MICROALBUMIN/CREATININE, RANDOM AND [id number] 00:00:00 Test Item Value Reference Range Interpretation Comments CREATININE, URINE, CONC. (test 127.3 MG/DL code = 2072) ALBUMIN, URINE, RANDOM (test code 65.2 MG/DL = 65191) CALC ALBUMIN/CREAT, RND (test 512 MG/G code = 50817) COMPREHENSIVE METABOLIC [id number] 00:00:00 Test Item Value Reference Range Interpretation Comments GLUCOSE (test code = 2217) 353 MG/DL BUN (test code = 2208) 27 MG/DL CREATININE (test code = 2214) 0.90 MG/DL eGFR AMER. (test code 92 ML/MIN/1.73 = 83477) eGFR NON- AMER. (test 79 ML/MIN/1.73 code = 27732) CALC BUN/CREAT (test code = 30 RATIO [...] code = 2219) 18 U/L COMPREHENSIVE METABOLIC [id number] 00:00:00 Test Item Value Reference Range Interpretation Comments GLUCOSE (test code = 2217) 353 MG/DL BUN (test code = 2208) 27 MG/DL CREATININE (test code = 2214) 0.90 MG/DL eGFR AMER. (test code 92 ML/MIN/1.73 = 94483) eGFR NON- AMER. (test 79 ML/MIN/1.73 code = 40311) CALC BUN/CREAT (test code = 30 RATIO [...] (test code = 2219) 18 U/L LIPID [id number] 00:00:00 Test Item Value Reference Range Interpretation Comments CHOLESTEROL (test code = 2210) 412 MG/DL TRIGLYCERIDES (test code = 2232) 2520 MG/DL HDL CHOLESTEROL (test code = 16 MG/DL 2220) CALC LDL CHOL (test code = 2237) NOTE MG/DL RISK RATIO LDL/HDL (test code = (NOTE) RATIO 2238) LIPID [id number] 00:00:00 Test Item Value Reference Range Interpretation Comments CHOLESTEROL (test code = 2210) 412 MG/DL TRIGLYCERIDES (test code = 2232) 2520 MG/DL HDL CHOLESTEROL (test code = 16 MG/DL 2220) CALC LDL CHOL (test code = 2237) NOTE MG/DL RISK RATIO LDL/HDL (test code = (NOTE) RATIO 2238) HEMOGLOBIN [id number] 00:00:00 Test Item Value Reference Range Interpretation Comments HEMOGLOBIN A1c (test code = 52500) 10.7 % HEMOGLOBIN [id number] 00:00:00 Test Item Value Reference Range Interpretation Comments HEMOGLOBIN A1c (test code = 22146) 10.7 % HEMOGLOBIN [id number] 00:00:00 Test Item Value Reference Range Interpretation Comments HEMOGLOBIN A1c (test code = 46062) 10.7 % [id number] 00:00:00 Test Item Value Reference Range Interpretation Comments TSH, THIRD GENERATION (test code 0.777 UIU/ML = 2821) [id number] 00:00:00 Test Item Value Reference Range Interpretation Comments TSH, THIRD GENERATION (test code 0.777 UIU/ML = 2821) [id number] 00:00:00 Test Item Value Reference Range Interpretation Comments TSH, THIRD GENERATION (test code 0.777 UIU/ML = 2821) MICROALBUMIN/CREATININE, RANDOM AND [id number] 00:00:00 Test Item Value Reference Range Interpretation Comments CREATININE, URINE, CONC. (test 127.3 MG/DL code = 2072) ALBUMIN, URINE, RANDOM (test code 65.2 MG/DL = 86962) CALC ALBUMIN/CREAT, RND (test 512 MG/G code = 52715) MICROALBUMIN/CREATININE, RANDOM AND [id number] 00:00:00 Test Item Value Reference Range Interpretation Comments CREATININE, URINE, CONC. (test 127.3 MG/DL code = 2072) ALBUMIN, URINE, RANDOM (test code 65.2 MG/DL = 07757) CALC ALBUMIN/CREAT, RND (test 512 MG/G code = 77401) COMPREHENSIVE METABOLIC [id number] 00:00:00 Test Item Value Reference Range Interpretation Comments GLUCOSE (test code = 2217) 353 MG/DL BUN (test code = 2208) 27 MG/DL CREATININE (test code = 2214) 0.90 MG/DL eGFR AMER. (test code 92 ML/MIN/1.73 = 79538) eGFR NON- AMER. (test 79 ML/MIN/1.73 code = 82064) CALC BUN/CREAT (test code = 30 RATIO [...] code = 2219) 18 U/L COMPREHENSIVE METABOLIC [id number] 00:00:00 Test Item Value Reference Range Interpretation Comments GLUCOSE (test code = 2217) 353 MG/DL BUN (test code = 2208) 27 MG/DL CREATININE (test code = 2214) 0.90 MG/DL eGFR AMER. (test code 92 ML/MIN/1.73 = 82606) eGFR NON- AMER. (test 79 ML/MIN/1.73 code = 73527) CALC BUN/CREAT (test code = 30 RATIO [...] (test code = 2219) 18 U/L LIPID [id number] 00:00:00 Test Item Value Reference Range Interpretation Comments CHOLESTEROL (test code = 2210) 412 MG/DL TRIGLYCERIDES (test code = 2232) 2520 MG/DL HDL CHOLESTEROL (test code = 16 MG/DL 2220) CALC LDL CHOL (test code = 2237) NOTE MG/DL RISK RATIO LDL/HDL (test code = (NOTE) RATIO 2238) LIPID [id number] 00:00:00 Test Item Value Reference Range Interpretation Comments CHOLESTEROL (test code = 2210) 412 MG/DL TRIGLYCERIDES (test code = 2232) 2520 MG/DL HDL CHOLESTEROL (test code = 16 MG/DL 2220) CALC LDL CHOL (test code = 2237) NOTE MG/DL RISK RATIO LDL/HDL (test code = (NOTE) RATIO 2238) HEMOGLOBIN [id number] 00:00:00 Test Item Value Reference Range Interpretation Comments HEMOGLOBIN A1c (test code = 86549) 10.7 % HEMOGLOBIN [id number] 00:00:00 Test Item Value Reference Range Interpretation Comments HEMOGLOBIN A1c (test code = 28819) 10.7 % HEMOGLOBIN [id number] 00:00:00 Test Item Value Reference Range Interpretation Comments HEMOGLOBIN A1c (test code = 01338) 10.7 % [id number] 00:00:00 Test Item Value Reference Range Interpretation Comments TSH, THIRD GENERATION (test code 0.777 UIU/ML = 2821) [id number] 00:00:00 Test Item Value Reference Range Interpretation Comments TSH, THIRD GENERATION (test code 0.777 UIU/ML = 2821) [id number] 00:00:00 Test Item Value Reference Range Interpretation Comments TSH, THIRD GENERATION (test code 0.777 UIU/ML = 2821) MICROALBUMIN/CREATININE, RANDOM AND [id number] 00:00:00 Test Item Value Reference Range Interpretation Comments CREATININE, URINE, CONC. (test 127.3 MG/DL code = 2072) ALBUMIN, URINE, RANDOM (test code 65.2 MG/DL = 24492) CALC ALBUMIN/CREAT, RND (test 512 MG/G code = 97940) MICROALBUMIN/CREATININE, RANDOM AND [id number] 00:00:00 Test Item Value Reference Range Interpretation Comments CREATININE, URINE, CONC. (test 127.3 MG/DL code = 2072) ALBUMIN, URINE, RANDOM (test code 65.2 MG/DL = 70898) CALC ALBUMIN/CREAT, RND (test 512 MG/G code = 23743) COMPREHENSIVE METABOLIC [id number] 00:00:00 Test Item Value Reference Range Interpretation Comments GLUCOSE (test code = 2217) 353 MG/DL BUN (test code = 2208) 27 MG/DL CREATININE (test code = 2214) 0.90 MG/DL eGFR AMER. (test code 92 ML/MIN/1.73 = 59919) eGFR NON- AMER. (test 79 ML/MIN/1.73 code = 20852) CALC BUN/CREAT (test code = 30 RATIO [...] code = 2219) 18 U/L COMPREHENSIVE METABOLIC [id number] 00:00:00 Test Item Value Reference Range Interpretation Comments GLUCOSE (test code = 2217) 353 MG/DL BUN (test code = 2208) 27 MG/DL CREATININE (test code = 2214) 0.90 MG/DL eGFR AMER. (test code 92 ML/MIN/1.73 = 04543) eGFR NON- AMER. (test 79 ML/MIN/1.73 code = 56408) CALC BUN/CREAT (test code = 30 RATIO [...] (test code = 2219) 18 U/L LIPID [id number] 00:00:00 Test Item Value Reference Range Interpretation Comments CHOLESTEROL (test code = 2210) 412 MG/DL TRIGLYCERIDES (test code = 2232) 2520 MG/DL HDL CHOLESTEROL (test code = 16 MG/DL 2220) CALC LDL CHOL (test code = 2237) NOTE MG/DL RISK RATIO LDL/HDL (test code = (NOTE) RATIO 2238) LIPID [id number] 00:00:00 Test Item Value Reference Range Interpretation Comments CHOLESTEROL (test code = 2210) 412 MG/DL TRIGLYCERIDES (test code = 2232) 2520 MG/DL HDL CHOLESTEROL (test code = 16 MG/DL 2220) CALC LDL CHOL (test code = 2237) NOTE MG/DL RISK RATIO LDL/HDL (test code = (NOTE) RATIO 2238) HEMOGLOBIN [id number] 00:00:00 Test Item Value Reference Range Interpretation Comments HEMOGLOBIN A1c (test code = 28326) 10.7 % HEMOGLOBIN [id number] 00:00:00 Test Item Value Reference Range Interpretation Comments HEMOGLOBIN A1c (test code = 20681) 10.7 % HEMOGLOBIN [id number] 00:00:00 Test Item Value Reference Range Interpretation Comments HEMOGLOBIN A1c (test code = 30451) 10.7 % [id number] 00:00:00 Test Item Value Reference Range Interpretation Comments TSH, THIRD GENERATION (test code 0.777 UIU/ML = 2821) [id number] 00:00:00 Test Item Value Reference Range Interpretation Comments TSH, THIRD GENERATION (test code 0.777 UIU/ML = 2821) [id number] 00:00:00 Test Item Value Reference Range Interpretation Comments TSH, THIRD GENERATION (test code 0.777 UIU/ML = 2821) MICROALBUMIN/CREATININE, RANDOM AND [id number] 00:00:00 Test Item Value Reference Range Interpretation Comments CREATININE, URINE, CONC. (test 127.3 MG/DL code = 2072) ALBUMIN, URINE, RANDOM (test code 65.2 MG/DL = 09218) CALC ALBUMIN/CREAT, RND (test 512 MG/G code = 39804) MICROALBUMIN/CREATININE, RANDOM AND [id number] 00:00:00 Test Item Value Reference Range Interpretation Comments CREATININE, URINE, CONC. (test 127.3 MG/DL code = 2072) ALBUMIN, URINE, RANDOM (test code 65.2 MG/DL = 54156) CALC ALBUMIN/CREAT, RND (test 512 MG/G code = 88175) COMPREHENSIVE METABOLIC [id number] 00:00:00 Test Item Value Reference Range Interpretation Comments GLUCOSE (test code = 2217) 353 MG/DL BUN (test code = 2208) 27 MG/DL CREATININE (test code = 2214) 0.90 MG/DL eGFR AMER. (test code 92 ML/MIN/1.73 = 49876) eGFR NON- AMER. (test 79 ML/MIN/1.73 code = 76181) CALC BUN/CREAT (test code = 30 RATIO [...] code = 2219) 18 U/L COMPREHENSIVE METABOLIC [id number] 00:00:00 Test Item Value Reference Range Interpretation Comments GLUCOSE (test code = 2217) 353 MG/DL BUN (test code = 2208) 27 MG/DL CREATININE (test code = 2214) 0.90 MG/DL eGFR AMER. (test code 92 ML/MIN/1.73 = 96488) eGFR NON- AMER. (test 79 ML/MIN/1.73 code = 33327) CALC BUN/CREAT (test code = 30 RATIO [...] (test code = 2219) 18 U/L LIPID [id number] 00:00:00 Test Item Value Reference Range Interpretation Comments CHOLESTEROL (test code = 2210) 412 MG/DL TRIGLYCERIDES (test code = 2232) 2520 MG/DL HDL CHOLESTEROL (test code = 16 MG/DL 2220) CALC LDL CHOL (test code = 2237) NOTE MG/DL RISK RATIO LDL/HDL (test code = (NOTE) RATIO 2238) LIPID [id number] 00:00:00 Test Item Value Reference Range Interpretation Comments CHOLESTEROL (test code = 2210) 412 MG/DL TRIGLYCERIDES (test code = 2232) 2520 MG/DL HDL CHOLESTEROL (test code = 16 MG/DL 2220) CALC LDL CHOL (test code = 2237) NOTE MG/DL RISK RATIO LDL/HDL (test code = (NOTE) RATIO 2238) HEMOGLOBIN [id number] 00:00:00 Test Item Value Reference Range Interpretation Comments HEMOGLOBIN A1c (test code = 05870) 10.7 % HEMOGLOBIN [id number] 00:00:00 Test Item Value Reference Range Interpretation Comments HEMOGLOBIN A1c (test code = 77407) 10.7 % COMPREHENSIVE METABOLIC [id number] 00:00:00 Test Item Value Reference Range Interpretation Comments GLUCOSE (test code = 2217) 353 MG/DL BUN (test code = 2208) 27 MG/DL CREATININE (test code = 2214) 0.90 MG/DL eGFR AMER. (test code 92 ML/MIN/1.73 = 52788) eGFR NON- AMER. (test 79 ML/MIN/1.73 code = 56965) CALC BUN/CREAT (test code = 30 RATIO [...] (test code = 2219) 18 U/L HEMOGLOBIN [id number] 00:00:00 Test Item Value Reference Range Interpretation Comments HEMOGLOBIN A1c (test code = 67301) 10.7 % [id number] 00:00:00 Test Item Value Reference Range Interpretation Comments TSH, THIRD GENERATION (test code 0.777 UIU/ML = 2821) [id number] 00:00:00 Test Item Value Reference Range Interpretation Comments TSH, THIRD GENERATION (test code 0.777 UIU/ML = 2821) [id number] 00:00:00 Test Item Value Reference Range Interpretation Comments TSH, THIRD GENERATION (test code 0.777 UIU/ML = 2821) MICROALBUMIN/CREATININE, RANDOM AND [id number] 00:00:00 Test Item Value Reference Range Interpretation Comments CREATININE, URINE, CONC. (test 127.3 MG/DL code = 2072) ALBUMIN, URINE, RANDOM (test code 65.2 MG/DL = 36740) CALC ALBUMIN/CREAT, RND (test 512 MG/G code = 96327) MICROALBUMIN/CREATININE, RANDOM AND [id number] 00:00:00 Test Item Value Reference Range Interpretation Comments CREATININE, URINE, CONC. (test 127.3 MG/DL code = 2072) ALBUMIN, URINE, RANDOM (test code 65.2 MG/DL = 63088) CALC ALBUMIN/CREAT, RND (test 512 MG/G code = 03538) LIPID [id number] 00:00:00 Test Item Value Reference Range Interpretation Comments CHOLESTEROL (test code = 2210) 412 MG/DL TRIGLYCERIDES (test code = 2232) 2520 MG/DL HDL CHOLESTEROL (test code = 16 MG/DL 2220) CALC LDL CHOL (test code = 2237) NOTE MG/DL RISK RATIO LDL/HDL (test code = (NOTE) RATIO 2238) HEMOGLOBIN [id number] 00:00:00 Test Item Value Reference Range Interpretation Comments HEMOGLOBIN A1c (test code = 19979) 10.7 % HEMOGLOBIN [id number] 00:00:00 Test Item Value Reference Range Interpretation Comments HEMOGLOBIN A1c (test code = 14113) 10.7 % COMPREHENSIVE METABOLIC [id number] 00:00:00 Test Item Value Reference Range Interpretation Comments GLUCOSE (test code = 2217) 353 MG/DL BUN (test code = 2208) 27 MG/DL CREATININE (test code = 2214) 0.90 MG/DL eGFR AMER. (test code 92 ML/MIN/1.73 = 99291) eGFR NON- AMER. (test 79 ML/MIN/1.73 code = 79613) CALC BUN/CREAT (test code = 30 RATIO [...] code = 2219) 18 U/L COMPREHENSIVE METABOLIC [id number] 00:00:00 Test Item Value Reference Range Interpretation Comments GLUCOSE (test code = 2217) 353 MG/DL BUN (test code = 2208) 27 MG/DL CREATININE (test code = 2214) 0.90 MG/DL eGFR AMER. (test code 92 ML/MIN/1.73 = 76317) eGFR NON- AMER. (test 79 ML/MIN/1.73 code = 69775) CALC BUN/CREAT (test code = 30 RATIO [...] ALT (test code = 2219) 18 U/L [id number] 00:00:00 Test Item Value Reference Range Interpretation Comments TSH, THIRD GENERATION (test code 0.777 UIU/ML = 2821) LIPID [id number] 00:00:00 Test Item Value Reference Range Interpretation Comments CHOLESTEROL (test code = 2210) 412 MG/DL TRIGLYCERIDES (test code = 2232) 2520 MG/DL HDL CHOLESTEROL (test code = 16 MG/DL 2220) CALC LDL CHOL (test code = 2237) NOTE MG/DL RISK RATIO LDL/HDL (test code = (NOTE) RATIO 2238) [id number] 00:00:00 Test Item Value Reference Range Interpretation Comments TSH, THIRD GENERATION (test code 0.777 UIU/ML = 2821) LIPID [id number] 00:00:00 Test Item Value Reference Range Interpretation Comments CHOLESTEROL (test code = 2210) 412 MG/DL TRIGLYCERIDES (test code = 2232) 2520 MG/DL HDL CHOLESTEROL (test code = 16 MG/DL 2220) CALC LDL CHOL (test code = 2237) NOTE MG/DL RISK RATIO LDL/HDL (test code = (NOTE) RATIO 2238) HEMOGLOBIN [id number] 00:00:00 Test Item Value Reference Range Interpretation Comments HEMOGLOBIN A1c (test code = 55677) 10.7 % HEMOGLOBIN [id number] 00:00:00 Test Item Value Reference Range Interpretation Comments HEMOGLOBIN A1c (test code = 50488) 10.7 % HEMOGLOBIN [id number] 00:00:00 Test Item Value Reference Range Interpretation Comments HEMOGLOBIN A1c (test code = 89040) 10.7 % [id number] 00:00:00 Test Item Value Reference Range Interpretation Comments TSH, THIRD GENERATION (test code 0.777 UIU/ML = 2821) [id number] 00:00:00 Test Item Value Reference Range Interpretation Comments TSH, THIRD GENERATION (test code 0.777 UIU/ML = 2821) MICROALBUMIN/CREATININE, RANDOM AND [id number] 00:00:00 Test Item Value Reference Range Interpretation Comments CREATININE, URINE, CONC. (test 127.3 MG/DL code = 2072) ALBUMIN, URINE, RANDOM (test code 65.2 MG/DL = 59254) CALC ALBUMIN/CREAT, RND (test 512 MG/G code = 75896) [id number] 00:00:00 Test Item Value Reference Range Interpretation Comments TSH, THIRD GENERATION (test code 0.777 UIU/ML = 2821) MICROALBUMIN/CREATININE, RANDOM AND [id number] 00:00:00 Test Item Value Reference Range Interpretation Comments CREATININE, URINE, CONC. (test 127.3 MG/DL code = 2072) ALBUMIN, URINE, RANDOM (test code 65.2 MG/DL = 07508) CALC ALBUMIN/CREAT, RND (test 512 MG/G code = 50672) MICROALBUMIN/CREATININE, RANDOM AND [id number] 00:00:00 Test Item Value Reference Range Interpretation Comments CREATININE, URINE, CONC. (test 127.3 MG/DL code = 2072) ALBUMIN, URINE, RANDOM (test code 65.2 MG/DL = 60360) CALC ALBUMIN/CREAT, RND (test 512 MG/G code = 80533) COMPREHENSIVE METABOLIC [id number] 00:00:00 Test Item Value Reference Range Interpretation Comments GLUCOSE (test code = 2217) 353 MG/DL BUN (test code = 2208) 27 MG/DL CREATININE (test code = 2214) 0.90 MG/DL eGFR AMER. (test code 92 ML/MIN/1.73 = 04124) eGFR NON- AMER. (test 79 ML/MIN/1.73 code = 05814) CALC BUN/CREAT (test code = 30 RATIO [...] code = 2219) 18 U/L COMPREHENSIVE METABOLIC [id number] 00:00:00 Test Item Value Reference Range Interpretation Comments GLUCOSE (test code = 2217) 353 MG/DL BUN (test code = 2208) 27 MG/DL CREATININE (test code = 2214) 0.90 MG/DL eGFR AMER. (test code 92 ML/MIN/1.73 = 71158) eGFR NON- AMER. (test 79 ML/MIN/1.73 code = 47105) CALC BUN/CREAT (test code = 30 RATIO [...] (test code = 2219) 18 U/L LIPID [id number] 00:00:00 Test Item Value Reference Range Interpretation Comments CHOLESTEROL (test code = 2210) 412 MG/DL TRIGLYCERIDES (test code = 2232) 2520 MG/DL HDL CHOLESTEROL (test code = 16 MG/DL 2220) CALC LDL CHOL (test code = 2237) NOTE MG/DL RISK RATIO LDL/HDL (test code = (NOTE) RATIO 2238) LIPID [id number] 00:00:00 Test Item Value Reference Range Interpretation Comments CHOLESTEROL (test code = 2210) 412 MG/DL TRIGLYCERIDES (test code = 2232) 2520 MG/DL HDL CHOLESTEROL (test code = 16 MG/DL 2220) CALC LDL CHOL (test code = 2237) NOTE MG/DL RISK RATIO LDL/HDL (test code = (NOTE) RATIO 2238) HEMOGLOBIN [id number] 00:00:00 Test Item Value Reference Range Interpretation Comments HEMOGLOBIN A1c (test code = 27925) 10.7 % HEMOGLOBIN [id number] 00:00:00 Test Item Value Reference Range Interpretation Comments HEMOGLOBIN A1c (test code = 69405) 10.7 % HEMOGLOBIN [id number] 00:00:00 Test Item Value Reference Range Interpretation Comments HEMOGLOBIN A1c (test code = 03935) 10.7 % [id number] 00:00:00 Test Item Value Reference Range Interpretation Comments TSH, THIRD GENERATION (test code 0.777 UIU/ML = 2821) [id number] 00:00:00 Test Item Value Reference Range Interpretation Comments TSH, THIRD GENERATION (test code 0.777 UIU/ML = 2821) [id number] 00:00:00 Test Item Value Reference Range Interpretation Comments TSH, THIRD GENERATION (test code 0.777 UIU/ML = 2821) MICROALBUMIN/CREATININE, RANDOM AND [id number] 00:00:00 Test Item Value Reference Range Interpretation Comments CREATININE, URINE, CONC. (test 127.3 MG/DL code = 2072) ALBUMIN, URINE, RANDOM (test code 65.2 MG/DL = 61775) CALC ALBUMIN/CREAT, RND (test 512 MG/G code = 94380) MICROALBUMIN/CREATININE, RANDOM AND [id number] 00:00:00 Test Item Value Reference Range Interpretation Comments CREATININE, URINE, CONC. (test 127.3 MG/DL code = 2072) ALBUMIN, URINE, RANDOM (test code 65.2 MG/DL = 78621) CALC ALBUMIN/CREAT, RND (test 512 MG/G code = 85570) COMPREHENSIVE METABOLIC [id number] 00:00:00 Test Item Value Reference Range Interpretation Comments GLUCOSE (test code = 2217) 353 MG/DL BUN (test code = 2208) 27 MG/DL CREATININE (test code = 2214) 0.90 MG/DL eGFR AMER. (test code 92 ML/MIN/1.73 = 94340) eGFR NON- AMER. (test 79 ML/MIN/1.73 code = 56123) CALC BUN/CREAT (test code = 30 RATIO [...] code = 2219) 18 U/L COMPREHENSIVE METABOLIC [id number] 00:00:00 Test Item Value Reference Range Interpretation Comments GLUCOSE (test code = 2217) 353 MG/DL BUN (test code = 2208) 27 MG/DL CREATININE (test code = 2214) 0.90 MG/DL eGFR AMER. (test code 92 ML/MIN/1.73 = 39841) eGFR NON- AMER. (test 79 ML/MIN/1.73 code = 47191) CALC BUN/CREAT (test code = 30 RATIO [...] (test code = 2219) 18 U/L LIPID [id number] 00:00:00 Test Item Value Reference Range Interpretation Comments CHOLESTEROL (test code = 2210) 412 MG/DL TRIGLYCERIDES (test code = 2232) 2520 MG/DL HDL CHOLESTEROL (test code = 16 MG/DL 2220) CALC LDL CHOL (test code = 2237) NOTE MG/DL RISK RATIO LDL/HDL (test code = (NOTE) RATIO 2238) LIPID [id number] 00:00:00 Test Item Value Reference Range Interpretation Comments CHOLESTEROL (test code = 2210) 412 MG/DL TRIGLYCERIDES (test code = 2232) 2520 MG/DL HDL CHOLESTEROL (test code = 16 MG/DL 2220) CALC LDL CHOL (test code = 2237) NOTE MG/DL RISK RATIO LDL/HDL (test code = (NOTE) RATIO 2238) HEMOGLOBIN [id number] 00:00:00 Test Item Value Reference Range Interpretation Comments HEMOGLOBIN A1c (test code = 05243) 10.7 % HEMOGLOBIN [id number] 00:00:00 Test Item Value Reference Range Interpretation Comments HEMOGLOBIN A1c (test code = 83650) 10.7 % HEMOGLOBIN [id number] 00:00:00 Test Item Value Reference Range Interpretation Comments HEMOGLOBIN A1c (test code = 01450) 10.7 % [id number] 00:00:00 Test Item Value Reference Range Interpretation Comments TSH, THIRD GENERATION (test code 0.777 UIU/ML = 2821) [id number] 00:00:00 Test Item Value Reference Range Interpretation Comments TSH, THIRD GENERATION (test code 0.777 UIU/ML = 2821) [id number] 00:00:00 Test Item Value Reference Range Interpretation Comments TSH, THIRD GENERATION (test code 0.777 UIU/ML = 2821) MICROALBUMIN/CREATININE, RANDOM AND [id number] 00:00:00 Test Item Value Reference Range Interpretation Comments CREATININE, URINE, CONC. (test 127.3 MG/DL code = 2072) ALBUMIN, URINE, RANDOM (test code 65.2 MG/DL = 39240) CALC ALBUMIN/CREAT, RND (test 512 MG/G code = 62155) MICROALBUMIN/CREATININE, RANDOM AND [id number] 00:00:00 Test Item Value Reference Range Interpretation Comments CREATININE, URINE, CONC. (test 127.3 MG/DL code = 2072) ALBUMIN, URINE, RANDOM (test code 65.2 MG/DL = 04019) CALC ALBUMIN/CREAT, RND (test 512 MG/G code = 59496) CULTURE, [id number] 00:00:00 Test Item Value Reference Range Interpretation Comments CULTURE, URINE (test SPECIMEN NUMBER: code = 45724) [id number] CULTURE, [id number] 00:00:00 Test Item Value Reference Range Interpretation Comments CULTURE, URINE (test SPECIMEN NUMBER: code = 20264) [id number] CULTURE, [id number] 00:00:00 Test Item Value Reference Range Interpretation Comments CULTURE, URINE (test SPECIMEN NUMBER: code = 38496) [id number] CULTURE, [id number] 00:00:00 Test Item Value Reference Range Interpretation Comments CULTURE, URINE (test SPECIMEN NUMBER: code = 32044) [id number] CULTURE, [id number] 00:00:00 Test Item Value Reference Range Interpretation Comments CULTURE, URINE (test SPECIMEN NUMBER: code = 45075) [id number] CULTURE, [id number] 00:00:00 Test Item Value Reference Range Interpretation Comments CULTURE, URINE (test SPECIMEN NUMBER: code = 36157) [id number] CULTURE, [id number] 00:00:00 Test Item Value Reference Range Interpretation Comments CULTURE, URINE (test SPECIMEN NUMBER: code = 94535) [id number] CULTURE, [id number] 00:00:00 Test Item Value Reference Range Interpretation Comments CULTURE, URINE (test SPECIMEN NUMBER: code = 92284) [id number] CULTURE, [id number] 00:00:00 Test Item Value Reference Range Interpretation Comments CULTURE, URINE (test SPECIMEN NUMBER: code = 73267) [id number] CULTURE, [id number] 00:00:00 Test Item Value Reference Range Interpretation Comments CULTURE, URINE (test SPECIMEN NUMBER: code = 23212) [id number] CULTURE, [id number] 00:00:00 Test Item Value Reference Range Interpretation Comments CULTURE, URINE (test SPECIMEN NUMBER: code = 85417) [id number] CULTURE, [id number] 00:00:00 Test Item Value Reference Range Interpretation Comments CULTURE, URINE (test SPECIMEN NUMBER: code = 48573) [id number] CULTURE, [id number] 00:00:00 Test Item Value Reference Range Interpretation Comments CULTURE, URINE (test SPECIMEN NUMBER: code = 90450) [id number] CULTURE, [id number] 00:00:00 Test Item Value Reference Range Interpretation Comments CULTURE, URINE (test SPECIMEN NUMBER: code = 75704) [id number] CULTURE, [id number] 00:00:00 Test Item Value Reference Range Interpretation Comments CULTURE, URINE (test SPECIMEN NUMBER: code = 18611) [id number] CULTURE, [id number] 00:00:00 Test Item Value Reference Range Interpretation Comments CULTURE, URINE (test SPECIMEN NUMBER: code = 11836) [id number] CULTURE, [id number] 00:00:00 Test Item Value Reference Range Interpretation Comments CULTURE, URINE (test SPECIMEN NUMBER: code = 28502) [id number] CULTURE, [id number] 00:00:00 Test Item Value Reference Range Interpretation Comments CULTURE, URINE (test SPECIMEN NUMBER: code = 48005) [id number] CULTURE, [id number] 00:00:00 Test Item Value Reference Range Interpretation Comments CULTURE, URINE (test SPECIMEN NUMBER: code = 66181) [id number] CULTURE, [id number] 00:00:00 Test Item Value Reference Range Interpretation Comments CULTURE, URINE (test SPECIMEN NUMBER: code = 32610) [id number] CULTURE, [id number] 00:00:00 Test Item Value Reference Range Interpretation Comments CULTURE, URINE (test SPECIMEN NUMBER: code = 55874) [id number] VAGINAL PATHOGENS DNA [id number] 00:00:00 Test Item Value Reference Range Interpretation Comments ANDIE SPECIES (test code = ) NEGATIVE G. VAGINALIS (test code = 12386) NEGATIVE T. VAGINALIS (test code = ) NEGATIVE VAGINAL PATHOGENS DNA [id number] 00:00:00 Test Item Value Reference Range Interpretation Comments ANDIE SPECIES (test code = ) NEGATIVE G. VAGINALIS (test code = 72748) NEGATIVE T. VAGINALIS (test code = 65958) NEGATIVE VAGINAL PATHOGENS DNA [id number] 00:00:00 Test Item Value Reference Range Interpretation Comments ANDIE SPECIES (test code = 04390) NEGATIVE G. VAGINALIS (test code = 44911) NEGATIVE T. VAGINALIS (test code = 59645) NEGATIVE VAGINAL PATHOGENS DNA [id number] 00:00:00 Test Item Value Reference Range Interpretation Comments ANDIE SPECIES (test code = 25052) NEGATIVE G. VAGINALIS (test code = 03185) NEGATIVE T. VAGINALIS (test code = 73372) NEGATIVE VAGINAL PATHOGENS DNA [id number] 00:00:00 Test Item Value Reference Range Interpretation Comments ANDIE SPECIES (test code = 56344) NEGATIVE G. VAGINALIS (test code = 57090) NEGATIVE T. VAGINALIS (test code = 01809) NEGATIVE VAGINAL PATHOGENS DNA [id number] 00:00:00 Test Item Value Reference Range Interpretation Comments ANDIE SPECIES (test code = 99830) NEGATIVE G. VAGINALIS (test code = 12993) NEGATIVE T. VAGINALIS (test code = 23802) NEGATIVE VAGINAL PATHOGENS DNA [id number] 00:00:00 Test Item Value Reference Range Interpretation Comments ANDIE SPECIES (test code = 12338) NEGATIVE G. VAGINALIS (test code = 90984) NEGATIVE T. VAGINALIS (test code = 31187) NEGATIVE VAGINAL PATHOGENS DNA [id number] 00:00:00 Test Item Value Reference Range Interpretation Comments ANDIE SPECIES (test code = 47475) NEGATIVE G. VAGINALIS (test code = 24022) NEGATIVE T. VAGINALIS (test code = 83043) NEGATIVE VAGINAL PATHOGENS DNA [id number] 00:00:00 Test Item Value Reference Range Interpretation Comments ANDIE SPECIES (test code = 66521) NEGATIVE G. VAGINALIS (test code = 42532) NEGATIVE T. VAGINALIS (test code = 37049) NEGATIVE VAGINAL PATHOGENS DNA [id number] 00:00:00 Test Item Value Reference Range Interpretation Comments ANDIE SPECIES (test code = 54817) NEGATIVE G. VAGINALIS (test code = 43038) NEGATIVE T. VAGINALIS (test code = 15449) NEGATIVE VAGINAL PATHOGENS DNA [id number] 00:00:00 Test Item Value Reference Range Interpretation Comments ANDIE SPECIES (test code = 58328) NEGATIVE G. VAGINALIS (test code = 14780) NEGATIVE T. VAGINALIS (test code = 53556) NEGATIVE VAGINAL PATHOGENS DNA [id number] 00:00:00 Test Item Value Reference Range Interpretation Comments ANDIE SPECIES (test code = 52576) NEGATIVE G. VAGINALIS (test code = 79269) NEGATIVE T. VAGINALIS (test code = 23738) NEGATIVE VAGINAL PATHOGENS DNA [id number] 00:00:00 Test Item Value Reference Range Interpretation Comments ANDIE SPECIES (test code = 69868) NEGATIVE G. VAGINALIS (test code = 84608) NEGATIVE T. VAGINALIS (test code = 73691) NEGATIVE VAGINAL PATHOGENS DNA [id number] 00:00:00 Test Item Value Reference Range Interpretation Comments ANDIE SPECIES (test code = 27960) NEGATIVE G. VAGINALIS (test code = 99075) NEGATIVE T. VAGINALIS (test code = 22790) NEGATIVE VAGINAL PATHOGENS DNA [id number] 00:00:00 Test Item Value Reference Range Interpretation Comments ANDIE SPECIES (test code = 98463) NEGATIVE G. VAGINALIS (test code = 23042) NEGATIVE T. VAGINALIS (test code = 55207) NEGATIVE VAGINAL PATHOGENS DNA [id number] 00:00:00 Test Item Value Reference Range Interpretation Comments ANDIE SPECIES (test code = 66904) NEGATIVE G. VAGINALIS (test code = 01759) NEGATIVE T. VAGINALIS (test code = 06200) NEGATIVE VAGINAL PATHOGENS DNA [id number] 00:00:00 Test Item Value Reference Range Interpretation Comments ANDIE SPECIES (test code = 34982) NEGATIVE G. VAGINALIS (test code = 10726) NEGATIVE T. VAGINALIS (test code = 90615) NEGATIVE VAGINAL PATHOGENS DNA [id number] 00:00:00 Test Item Value Reference Range Interpretation Comments ANDIE SPECIES (test code = 04029) NEGATIVE G. VAGINALIS (test code = 52434) NEGATIVE T. VAGINALIS (test code = 64648) NEGATIVE VAGINAL PATHOGENS DNA [id number] 00:00:00 Test Item Value Reference Range Interpretation Comments ANDIE SPECIES (test code = 61277) NEGATIVE G. VAGINALIS (test code = 09190) NEGATIVE T. VAGINALIS (test code = 59494) NEGATIVE VAGINAL PATHOGENS DNA [id number] 00:00:00 Test Item Value Reference Range Interpretation Comments ANDIE SPECIES (test code = 93764) NEGATIVE G. VAGINALIS (test code = 59719) NEGATIVE T. VAGINALIS (test code = 21230) NEGATIVE VAGINAL PATHOGENS DNA [id number] 00:00:00 Test Item Value Reference Range Interpretation [...] eGFR AMER. (test code 98 ML/MIN/1.73 = 03841) eGFR NON- AMER. (test 84 ML/MIN/1.73 code = 45943) CALC BUN/CREAT (test code = 21 RATIO [...] eGFR AMER. (test code 98 ML/MIN/1.73 = 89862) eGFR NON- AMER. (test 84 ML/MIN/1.73 code = 34973) CALC BUN/CREAT (test code = 21 RATIO [...] Interpretation Comments HEMOGLOBIN A1c (test code = 33642) 10.1 % HEMOGLOBIN A1c [ADDED]2018-05-24 00:00:00 Test Item Value Reference Range Interpretation Comments HEMOGLOBIN A1c (test code = 73092) 10.1 % HEMOGLOBIN A1c [ADDED]2018-05-24 00:00:00 Test Item Value Reference Range Interpretation Comments HEMOGLOBIN A1c (test code = 75769) 10.1 % COMPREHENSIVE METABOLIC PANEL [ADDED]2018-05-24 00:00:00 Test Item Value Reference Range Interpretation Comments GLUCOSE (test code = 2217) 198 MG/DL BUN (test code = 2208) 18 MG/DL CREATININE (test code = 2214) 0.86 MG/DL eGFR AMER. (test code 98 ML/MIN/1.73 = 05117) eGFR NON- AMER. (test 84 ML/MIN/1.73 code = 31283) CALC BUN/CREAT (test code = 21 RATIO [...] eGFR AMER. (test code 98 ML/MIN/1.73 = 21176) eGFR NON- AMER. (test 84 ML/MIN/1.73 code = 13702) CALC BUN/CREAT (test code = 21 RATIO [...] Interpretation Comments HEMOGLOBIN A1c (test code = 27916) 10.1 % HEMOGLOBIN A1c [ADDED]2018-05-24 00:00:00 Test Item Value Reference Range Interpretation Comments HEMOGLOBIN A1c (test code = 07614) 10.1 % HEMOGLOBIN A1c [ADDED]2018-05-24 00:00:00 Test Item Value Reference Range Interpretation Comments HEMOGLOBIN A1c (test code = 08777) 10.1 % COMPREHENSIVE METABOLIC PANEL [ADDED]2018-05-24 00:00:00 Test Item Value Reference Range Interpretation Comments GLUCOSE (test code = 2217) 198 MG/DL BUN (test code = 2208) 18 MG/DL CREATININE (test code = 2214) 0.86 MG/DL eGFR AMER. (test code 98 ML/MIN/1.73 = 05821) eGFR NON- AMER. (test 84 ML/MIN/1.73 code = 94588) CALC BUN/CREAT (test code = 21 RATIO [...] eGFR AMER. (test code 98 ML/MIN/1.73 = 89289) eGFR NON- AMER. (test 84 ML/MIN/1.73 code = 79299) CALC BUN/CREAT (test code = 21 RATIO [...] Comments HEMOGLOBIN A1c (test code = 62490) 10.1 % HEMOGLOBIN A1c [ADDED]2018-05-24 00:00:00 Test Item Value Reference Range Interpretation Comments HEMOGLOBIN A1c (test code = 86193) 10.1 % HEMOGLOBIN A1c [ADDED]2018-05-24 00:00:00 Test Item Value Reference Range Interpretation Comments HEMOGLOBIN A1c (test code = 06827) 10.1 % COMPREHENSIVE METABOLIC PANEL [ADDED]2018-05-24 00:00:00 Test Item Value Reference Range Interpretation Comments GLUCOSE (test code = 2217) 198 MG/DL BUN (test code = 2208) 18 MG/DL CREATININE (test code = 2214) 0.86 MG/DL eGFR AMER. (test code 98 ML/MIN/1.73 = 78912) eGFR NON- AMER. (test 84 ML/MIN/1.73 code = 29608) CALC BUN/CREAT (test code = 21 RATIO [...] eGFR AMER. (test code 98 ML/MIN/1.73 = 27849) eGFR NON- AMER. (test 84 ML/MIN/1.73 code = 64657) CALC BUN/CREAT (test code = 21 RATIO [...] Interpretation Comments HEMOGLOBIN A1c (test code = 01393) 10.1 % HEMOGLOBIN A1c [ADDED]2018-05-24 00:00:00 Test Item Value Reference Range Interpretation Comments HEMOGLOBIN A1c (test code = 25405) 10.1 % HEMOGLOBIN A1c [ADDED]2018-05-24 00:00:00 Test Item Value Reference Range Interpretation Comments HEMOGLOBIN A1c (test code = 96940) 10.1 % COMPREHENSIVE METABOLIC PANEL [ADDED]2018-05-24 00:00:00 Test Item Value Reference Range Interpretation Comments GLUCOSE (test code = 2217) 198 MG/DL BUN (test code = 2208) 18 MG/DL CREATININE (test code = 2214) 0.86 MG/DL eGFR AMER. (test code 98 ML/MIN/1.73 = 04570) eGFR NON- AMER. (test 84 ML/MIN/1.73 code = 15810) CALC BUN/CREAT (test code = 21 RATIO [...] eGFR AMER. (test code 98 ML/MIN/1.73 = 63590) eGFR NON- AMER. (test 84 ML/MIN/1.73 code = 01620) CALC BUN/CREAT (test code = 21 RATIO [...] Interpretation Comments HEMOGLOBIN A1c (test code = 10790) 10.1 % HEMOGLOBIN A1c [ADDED]2018-05-24 00:00:00 Test Item Value Reference Range Interpretation Comments HEMOGLOBIN A1c (test code = 28137) 10.1 % HEMOGLOBIN A1c [ADDED]2018-05-24 00:00:00 Test Item Value Reference Range Interpretation Comments HEMOGLOBIN A1c (test code = 85781) 10.1 % COMPREHENSIVE METABOLIC PANEL [ADDED]2018-05-24 00:00:00 Test Item Value Reference Range Interpretation Comments GLUCOSE (test code = 2217) 198 MG/DL BUN (test code = 2208) 18 MG/DL CREATININE (test code = 2214) 0.86 MG/DL eGFR AMER. (test code 98 ML/MIN/1.73 = 09482) eGFR NON- AMER. (test 84 ML/MIN/1.73 code = 44196) CALC BUN/CREAT (test code = 21 RATIO [...] eGFR AMER. (test code 98 ML/MIN/1.73 = 26337) eGFR NON- AMER. (test 84 ML/MIN/1.73 code = 61058) CALC BUN/CREAT (test code = 21 RATIO [...] Interpretation Comments HEMOGLOBIN A1c (test code = 97971) 10.1 % HEMOGLOBIN A1c [ADDED]2018-05-24 00:00:00 Test Item Value Reference Range Interpretation Comments HEMOGLOBIN A1c (test code = 94438) 10.1 % HEMOGLOBIN A1c [ADDED]2018-05-24 00:00:00 Test Item Value Reference Range Interpretation Comments HEMOGLOBIN A1c (test code = 75817) 10.1 % COMPREHENSIVE METABOLIC PANEL [ADDED]2018-05-24 00:00:00 Test Item Value Reference Range Interpretation Comments GLUCOSE (test code = 2217) 198 MG/DL BUN (test code = 2208) 18 MG/DL CREATININE (test code = 2214) 0.86 MG/DL eGFR AMER. (test code 98 ML/MIN/1.73 = 54963) eGFR NON- AMER. (test 84 ML/MIN/1.73 code = 73420) CALC BUN/CREAT (test code = 21 RATIO [...] eGFR AMER. (test code 98 ML/MIN/1.73 = 14563) eGFR NON- AMER. (test 84 ML/MIN/1.73 code = 38191) CALC BUN/CREAT (test code = 21 RATIO [...] Interpretation Comments HEMOGLOBIN A1c (test code = 73081) 10.1 % HEMOGLOBIN A1c [ADDED]2018-05-24 00:00:00 Test Item Value Reference Range Interpretation Comments HEMOGLOBIN A1c (test code = 51773) 10.1 % HEMOGLOBIN A1c [ADDED]2018-05-24 00:00:00 Test Item Value Reference Range Interpretation Comments HEMOGLOBIN A1c (test code = 62248) 10.1 % COMPREHENSIVE METABOLIC PANEL [ADDED]2018-05-24 00:00:00 Test Item Value Reference Range Interpretation Comments GLUCOSE (test code = 2217) 198 MG/DL BUN (test code = 2208) 18 MG/DL CREATININE (test code = 2214) 0.86 MG/DL eGFR AMER. (test code 98 ML/MIN/1.73 = 04454) eGFR NON- AMER. (test 84 ML/MIN/1.73 code = 48968) CALC BUN/CREAT (test code = 21 RATIO [...] Interpretation Comments HEMOGLOBIN A1c (test code = 79489) 10.1 % HEMOGLOBIN A1c [ADDED]2018-05-24 00:00:00 Test Item Value Reference Range Interpretation Comments HEMOGLOBIN A1c (test code = 21238) 10.1 % COMPREHENSIVE METABOLIC PANEL [ADDED]2018-05-24 00:00:00 Test Item Value Reference Range Interpretation Comments GLUCOSE (test code = 2217) 198 MG/DL BUN (test code = 2208) 18 MG/DL CREATININE (test code = 2214) 0.86 MG/DL eGFR AMER. (test code 98 ML/MIN/1.73 = 14596) eGFR NON- AMER. (test 84 ML/MIN/1.73 code = 92015) CALC BUN/CREAT (test code = 21 RATIO [...] eGFR AMER. (test code 98 ML/MIN/1.73 = 67734) eGFR NON- AMER. (test 84 ML/MIN/1.73 code = 23707) CALC BUN/CREAT (test code = 21 RATIO [...] Interpretation Comments HEMOGLOBIN A1c (test code = 96663) 10.1 % HEMOGLOBIN A1c [ADDED]2018-05-24 00:00:00 Test Item Value Reference Range Interpretation Comments HEMOGLOBIN A1c (test code = 35027) 10.1 % HEMOGLOBIN A1c [ADDED]2018-05-24 00:00:00 Test Item Value Reference Range Interpretation Comments HEMOGLOBIN A1c (test code = 83760) 10.1 % COMPREHENSIVE METABOLIC PANEL [ADDED]2018-05-24 00:00:00 Test Item Value Reference Range Interpretation Comments GLUCOSE (test code = 2217) 198 MG/DL BUN (test code = 2208) 18 MG/DL CREATININE (test code = 2214) 0.86 MG/DL eGFR AMER. (test code 98 ML/MIN/1.73 = 26328) eGFR NON- AMER. (test 84 ML/MIN/1.73 code = 06160) CALC BUN/CREAT (test code = 21 RATIO [...] eGFR AMER. (test code 98 ML/MIN/1.73 = 93915) eGFR NON- AMER. (test 84 ML/MIN/1.73 code = 54701) CALC BUN/CREAT (test code = 21 RATIO [...] Interpretation Comments HEMOGLOBIN A1c (test code = 68612) 10.1 % HEMOGLOBIN A1c [ADDED]2018-05-24 00:00:00 Test Item Value Reference Range Interpretation Comments HEMOGLOBIN A1c (test code = 75282) 10.1 % HEMOGLOBIN A1c [ADDED]2018-05-24 00:00:00 Test Item Value Reference Range Interpretation Comments HEMOGLOBIN A1c (test code = 94865) 10.1 % COMPREHENSIVE METABOLIC PANEL [ADDED]2018-05-24 00:00:00 Test Item Value Reference Range Interpretation Comments GLUCOSE (test code = 2217) 198 MG/DL BUN (test code = 2208) 18 MG/DL CREATININE (test code = 2214) 0.86 MG/DL eGFR AMER. (test code 98 ML/MIN/1.73 = 77363) eGFR NON- AMER. (test 84 ML/MIN/1.73 code = 46902) CALC BUN/CREAT (test code = 21 RATIO [...] eGFR AMER. (test code 98 ML/MIN/1.73 = 27773) eGFR NON- AMER. (test 84 ML/MIN/1.73 code = 52854) CALC BUN/CREAT (test code = 21 RATIO [...] Interpretation Comments HEMOGLOBIN A1c (test code = 01726) 10.1 % HEMOGLOBIN A1c [ADDED]2018-05-24 00:00:00 Test Item Value Reference Range Interpretation Comments HEMOGLOBIN A1c (test code = 40721) 10.1 % HEMOGLOBIN A1c [ADDED]2018-05-24 00:00:00 Test Item Value Reference Range Interpretation Comments HEMOGLOBIN A1c (test code = 33154) 10.1 % HEMOGLOBIN [id number] 00:00:00 Test Item Value Reference Range Interpretation Comments HEMOGLOBIN A1c (test code = 19503) 8.5 % HEMOGLOBIN [id number] 00:00:00 Test Item Value Reference Range Interpretation Comments HEMOGLOBIN A1c (test code = 76305) 8.5 % HEMOGLOBIN [id number] 00:00:00 Test Item Value Reference Range Interpretation Comments HEMOGLOBIN A1c (test code = 93558) 8.5 % COMPREHENSIVE METABOLIC [id number] 00:00:00 Test Item Value Reference Range Interpretation Comments GLUCOSE (test code = 2217) 131 MG/DL BUN (test code = 2208) 16 MG/DL CREATININE (test code = 2214) 0.71 MG/DL eGFR AMER. (test code 124 ML/MIN/1.73 = 13860) eGFR NON- AMER. (test 107 ML/MIN/1.73 code = 66179) CALC BUN/CREAT (test code = 23 RATIO [...] code = 2219) 33 U/L COMPREHENSIVE METABOLIC [id number] 00:00:00 Test Item Value Reference Range Interpretation Comments GLUCOSE (test code = 2217) 131 MG/DL BUN (test code = 2208) 16 MG/DL CREATININE (test code = 2214) 0.71 MG/DL eGFR AMER. (test code 124 ML/MIN/1.73 = 24325) eGFR NON- AMER. (test 107 ML/MIN/1.73 code = 31413) CALC BUN/CREAT (test code = 23 RATIO [...] (test code = 2219) 33 U/L LIPID [id number] 00:00:00 Test Item Value Reference Range Interpretation Comments CHOLESTEROL (test code = 2210) 201 MG/DL TRIGLYCERIDES (test code = 2232) 1014 MG/DL HDL CHOLESTEROL (test code = 25 MG/DL 2220) CALC LDL CHOL (test code = 2237) NOTE MG/DL RISK RATIO LDL/HDL (test code = (NOTE) RATIO 2238) LIPID [id number] 00:00:00 Test Item Value Reference Range Interpretation Comments CHOLESTEROL (test code = 2210) 201 MG/DL TRIGLYCERIDES (test code = 2232) 1014 MG/DL HDL CHOLESTEROL (test code = 25 MG/DL 2220) CALC LDL CHOL (test code = 2237) NOTE MG/DL RISK RATIO LDL/HDL (test code = (NOTE) RATIO 2238) HEMOGLOBIN [id number] 00:00:00 Test Item Value Reference Range Interpretation Comments HEMOGLOBIN A1c (test code = 94887) 8.5 % HEMOGLOBIN [id number] 00:00:00 Test Item Value Reference Range Interpretation Comments HEMOGLOBIN A1c (test code = 76784) 8.5 % HEMOGLOBIN [id number] 00:00:00 Test Item Value Reference Range Interpretation Comments HEMOGLOBIN A1c (test code = 97837) 8.5 % COMPREHENSIVE METABOLIC [id number] 00:00:00 Test Item Value Reference Range Interpretation Comments GLUCOSE (test code = 2217) 131 MG/DL BUN (test code = 2208) 16 MG/DL CREATININE (test code = 2214) 0.71 MG/DL eGFR AMER. (test code 124 ML/MIN/1.73 = 74515) eGFR NON- AMER. (test 107 ML/MIN/1.73 code = 73263) CALC BUN/CREAT (test code = 23 RATIO [...] code = 2219) 33 U/L COMPREHENSIVE METABOLIC [id number] 00:00:00 Test Item Value Reference Range Interpretation Comments GLUCOSE (test code = 2217) 131 MG/DL BUN (test code = 2208) 16 MG/DL CREATININE (test code = 2214) 0.71 MG/DL eGFR AMER. (test code 124 ML/MIN/1.73 = 86413) eGFR NON- AMER. (test 107 ML/MIN/1.73 code = 46060) CALC BUN/CREAT (test code = 23 RATIO [...] (test code = 2219) 33 U/L LIPID [id number] 00:00:00 Test Item Value Reference Range Interpretation Comments CHOLESTEROL (test code = 2210) 201 MG/DL TRIGLYCERIDES (test code = 2232) 1014 MG/DL HDL CHOLESTEROL (test code = 25 MG/DL 2220) CALC LDL CHOL (test code = 2237) NOTE MG/DL RISK RATIO LDL/HDL (test code = (NOTE) RATIO 2238) LIPID [id number] 00:00:00 Test Item Value Reference Range Interpretation Comments CHOLESTEROL (test code = 2210) 201 MG/DL TRIGLYCERIDES (test code = 2232) 1014 MG/DL HDL CHOLESTEROL (test code = 25 MG/DL 2220) CALC LDL CHOL (test code = 2237) NOTE MG/DL RISK RATIO LDL/HDL (test code = (NOTE) RATIO 2238) HEMOGLOBIN [id number] 00:00:00 Test Item Value Reference Range Interpretation Comments HEMOGLOBIN A1c (test code = 89132) 8.5 % HEMOGLOBIN [id number] 00:00:00 Test Item Value Reference Range Interpretation Comments HEMOGLOBIN A1c (test code = 17073) 8.5 % HEMOGLOBIN [id number] 00:00:00 Test Item Value Reference Range Interpretation Comments HEMOGLOBIN A1c (test code = 45713) 8.5 % COMPREHENSIVE METABOLIC [id number] 00:00:00 Test Item Value Reference Range Interpretation Comments GLUCOSE (test code = 2217) 131 MG/DL BUN (test code = 2208) 16 MG/DL CREATININE (test code = 2214) 0.71 MG/DL eGFR AMER. (test code 124 ML/MIN/1.73 = 82073) eGFR NON- AMER. (test 107 ML/MIN/1.73 code = 49715) CALC BUN/CREAT (test code = 23 RATIO [...] code = 2219) 33 U/L COMPREHENSIVE METABOLIC [id number] 00:00:00 Test Item Value Reference Range Interpretation Comments GLUCOSE (test code = 2217) 131 MG/DL BUN (test code = 2208) 16 MG/DL CREATININE (test code = 2214) 0.71 MG/DL eGFR AMER. (test code 124 ML/MIN/1.73 = 22874) eGFR NON- AMER. (test 107 ML/MIN/1.73 code = 60222) CALC BUN/CREAT (test code = 23 RATIO [...] (test code = 2219) 33 U/L LIPID [id number] 00:00:00 Test Item Value Reference Range Interpretation Comments CHOLESTEROL (test code = 2210) 201 MG/DL TRIGLYCERIDES (test code = 2232) 1014 MG/DL HDL CHOLESTEROL (test code = 25 MG/DL 2220) CALC LDL CHOL (test code = 2237) NOTE MG/DL RISK RATIO LDL/HDL (test code = (NOTE) RATIO 2238) LIPID [id number] 00:00:00 Test Item Value Reference Range Interpretation Comments CHOLESTEROL (test code = 2210) 201 MG/DL TRIGLYCERIDES (test code = 2232) 1014 MG/DL HDL CHOLESTEROL (test code = 25 MG/DL 2220) CALC LDL CHOL (test code = 2237) NOTE MG/DL RISK RATIO LDL/HDL (test code = (NOTE) RATIO 2238) HEMOGLOBIN [id number] 00:00:00 Test Item Value Reference Range Interpretation Comments HEMOGLOBIN A1c (test code = 84050) 8.5 % HEMOGLOBIN [id number] 00:00:00 Test Item Value Reference Range Interpretation Comments HEMOGLOBIN A1c (test code = 80607) 8.5 % HEMOGLOBIN [id number] 00:00:00 Test Item Value Reference Range Interpretation Comments HEMOGLOBIN A1c (test code = 54306) 8.5 % COMPREHENSIVE METABOLIC [id number] 00:00:00 Test Item Value Reference Range Interpretation Comments GLUCOSE (test code = 2217) 131 MG/DL BUN (test code = 2208) 16 MG/DL CREATININE (test code = 2214) 0.71 MG/DL eGFR AMER. (test code 124 ML/MIN/1.73 = 19710) eGFR NON- AMER. (test 107 ML/MIN/1.73 code = 41105) CALC BUN/CREAT (test code = 23 RATIO [...] code = 2219) 33 U/L COMPREHENSIVE METABOLIC [id number] 00:00:00 Test Item Value Reference Range Interpretation Comments GLUCOSE (test code = 2217) 131 MG/DL BUN (test code = 2208) 16 MG/DL CREATININE (test code = 2214) 0.71 MG/DL eGFR AMER. (test code 124 ML/MIN/1.73 = 15867) eGFR NON- AMER. (test 107 ML/MIN/1.73 code = 39500) CALC BUN/CREAT (test code = 23 RATIO [...] (test code = 2219) 33 U/L LIPID [id number] 00:00:00 Test Item Value Reference Range Interpretation Comments CHOLESTEROL (test code = 2210) 201 MG/DL TRIGLYCERIDES (test code = 2232) 1014 MG/DL HDL CHOLESTEROL (test code = 25 MG/DL 2220) CALC LDL CHOL (test code = 2237) NOTE MG/DL RISK RATIO LDL/HDL (test code = (NOTE) RATIO 2238) LIPID [id number] 00:00:00 Test Item Value Reference Range Interpretation Comments CHOLESTEROL (test code = 2210) 201 MG/DL TRIGLYCERIDES (test code = 2232) 1014 MG/DL HDL CHOLESTEROL (test code = 25 MG/DL 2220) CALC LDL CHOL (test code = 2237) NOTE MG/DL RISK RATIO LDL/HDL (test code = (NOTE) RATIO 2238) HEMOGLOBIN [id number] 00:00:00 Test Item Value Reference Range Interpretation Comments HEMOGLOBIN A1c (test code = 68856) 8.5 % HEMOGLOBIN [id number] 00:00:00 Test Item Value Reference Range Interpretation Comments HEMOGLOBIN A1c (test code = 53011) 8.5 % HEMOGLOBIN [id number] 00:00:00 Test Item Value Reference Range Interpretation Comments HEMOGLOBIN A1c (test code = 43087) 8.5 % COMPREHENSIVE METABOLIC [id number] 00:00:00 Test Item Value Reference Range Interpretation Comments GLUCOSE (test code = 2217) 131 MG/DL BUN (test code = 2208) 16 MG/DL CREATININE (test code = 2214) 0.71 MG/DL eGFR AMER. (test code 124 ML/MIN/1.73 = 62884) eGFR NON- AMER. (test 107 ML/MIN/1.73 code = 48856) CALC BUN/CREAT (test code = 23 RATIO [...] code = 2219) 33 U/L COMPREHENSIVE METABOLIC [id number] 00:00:00 Test Item Value Reference Range Interpretation Comments GLUCOSE (test code = 2217) 131 MG/DL BUN (test code = 2208) 16 MG/DL CREATININE (test code = 2214) 0.71 MG/DL eGFR AMER. (test code 124 ML/MIN/1.73 = 14590) eGFR NON- AMER. (test 107 ML/MIN/1.73 code = 02441) CALC BUN/CREAT (test code = 23 RATIO [...] (test code = 2219) 33 U/L LIPID [id number] 00:00:00 Test Item Value Reference Range Interpretation Comments CHOLESTEROL (test code = 2210) 201 MG/DL TRIGLYCERIDES (test code = 2232) 1014 MG/DL HDL CHOLESTEROL (test code = 25 MG/DL 2220) CALC LDL CHOL (test code = 2237) NOTE MG/DL RISK RATIO LDL/HDL (test code = (NOTE) RATIO 2238) LIPID [id number] 00:00:00 Test Item Value Reference Range Interpretation Comments CHOLESTEROL (test code = 2210) 201 MG/DL TRIGLYCERIDES (test code = 2232) 1014 MG/DL HDL CHOLESTEROL (test code = 25 MG/DL 2220) CALC LDL CHOL (test code = 2237) NOTE MG/DL RISK RATIO LDL/HDL (test code = (NOTE) RATIO 2238) HEMOGLOBIN [id number] 00:00:00 Test Item Value Reference Range Interpretation Comments HEMOGLOBIN A1c (test code = 50841) 8.5 % HEMOGLOBIN [id number] 00:00:00 Test Item Value Reference Range Interpretation Comments HEMOGLOBIN A1c (test code = 38897) 8.5 % HEMOGLOBIN [id number] 00:00:00 Test Item Value Reference Range Interpretation Comments HEMOGLOBIN A1c (test code = 35111) 8.5 % COMPREHENSIVE METABOLIC [id number] 00:00:00 Test Item Value Reference Range Interpretation Comments GLUCOSE (test code = 2217) 131 MG/DL BUN (test code = 2208) 16 MG/DL CREATININE (test code = 2214) 0.71 MG/DL eGFR AMER. (test code 124 ML/MIN/1.73 = 33536) eGFR NON- AMER. (test 107 ML/MIN/1.73 code [...] code = 2219) 33 U/L COMPREHENSIVE METABOLIC [id number] 00:00:00 Test Item Value Reference Range Interpretation Comments GLUCOSE (test code = 2217) 131 MG/DL BUN (test code = 2208) 16 MG/DL CREATININE (test code = 2214) 0.71 MG/DL eGFR AMER. (test code 124 ML/MIN/1.73 = 69712) eGFR NON- AMER. (test 107 ML/MIN/1.73 code = 77591) CALC BUN/CREAT (test code = 23 RATIO [...] (test code = 2219) 33 U/L LIPID [id number] 00:00:00 Test Item Value Reference Range Interpretation Comments CHOLESTEROL (test code = 2210) 201 MG/DL TRIGLYCERIDES (test code = 2232) 1014 MG/DL HDL CHOLESTEROL (test code = 25 MG/DL 2220) CALC LDL CHOL (test code = 2237) NOTE MG/DL RISK RATIO LDL/HDL (test code = (NOTE) RATIO 2238) LIPID [id number] 00:00:00 Test Item Value Reference Range Interpretation Comments CHOLESTEROL (test code = 2210) 201 MG/DL TRIGLYCERIDES (test code = 2232) 1014 MG/DL HDL CHOLESTEROL (test code = 25 MG/DL 2220) CALC LDL CHOL (test code = 2237) NOTE MG/DL RISK RATIO LDL/HDL (test code = (NOTE) RATIO 2238) HEMOGLOBIN [id number] 00:00:00 Test Item Value Reference Range Interpretation Comments HEMOGLOBIN A1c (test code = 51739) 8.5 % HEMOGLOBIN [id number] 00:00:00 Test Item Value Reference Range Interpretation Comments HEMOGLOBIN A1c (test code = 17751) 8.5 % HEMOGLOBIN [id number] 00:00:00 Test Item Value Reference Range Interpretation Comments HEMOGLOBIN A1c (test code = 43782) 8.5 % COMPREHENSIVE METABOLIC [id number] 00:00:00 Test Item Value Reference Range Interpretation Comments GLUCOSE (test code = 2217) 131 MG/DL BUN (test code = 2208) 16 MG/DL CREATININE (test code = 2214) 0.71 MG/DL eGFR AMER. (test code 124 ML/MIN/1.73 = 58480) eGFR NON- AMER. (test 107 ML/MIN/1.73 code = 21135) CALC BUN/CREAT (test code = 23 RATIO [...] code = 2219) 33 U/L COMPREHENSIVE METABOLIC [id number] 00:00:00 Test Item Value Reference Range Interpretation Comments GLUCOSE (test code = 2217) 131 MG/DL BUN (test code = 2208) 16 MG/DL CREATININE (test code = 2214) 0.71 MG/DL eGFR AMER. (test code 124 ML/MIN/1.73 = 74581) eGFR NON- AMER. (test 107 ML/MIN/1.73 code = 30989) CALC BUN/CREAT (test code = 23 RATIO [...] (test code = 2219) 33 U/L LIPID [id number] 00:00:00 Test Item Value Reference Range Interpretation Comments CHOLESTEROL (test code = 2210) 201 MG/DL TRIGLYCERIDES (test code = 2232) 1014 MG/DL HDL CHOLESTEROL (test code = 25 MG/DL 2220) CALC LDL CHOL (test code = 2237) NOTE MG/DL RISK RATIO LDL/HDL (test code = (NOTE) RATIO 2238) LIPID [id number] 00:00:00 Test Item Value Reference Range Interpretation Comments CHOLESTEROL (test code = 2210) 201 MG/DL TRIGLYCERIDES (test code = 2232) 1014 MG/DL HDL CHOLESTEROL (test code = 25 MG/DL 2220) CALC LDL CHOL (test code = 2237) NOTE MG/DL RISK RATIO LDL/HDL (test code = (NOTE) RATIO 2238) HEMOGLOBIN [id number] 00:00:00 Test Item Value Reference Range Interpretation Comments HEMOGLOBIN A1c (test code = 38815) 8.5 % HEMOGLOBIN [id number] 00:00:00 Test Item Value Reference Range Interpretation Comments HEMOGLOBIN A1c (test code = 72534) 8.5 % COMPREHENSIVE METABOLIC [id number] 00:00:00 Test Item Value Reference Range Interpretation Comments GLUCOSE (test code = 2217) 131 MG/DL BUN (test code = 2208) 16 MG/DL CREATININE (test code = 2214) 0.71 MG/DL eGFR AMER. (test code 124 ML/MIN/1.73 = 21697) eGFR NON- AMER. (test 107 ML/MIN/1.73 code = 64010) CALC BUN/CREAT (test code = 23 RATIO [...] (test code = 2219) 33 U/L LIPID [id number] 00:00:00 Test Item Value Reference Range Interpretation Comments CHOLESTEROL (test code = 2210) 201 MG/DL TRIGLYCERIDES (test code = 2232) 1014 MG/DL HDL CHOLESTEROL (test code = 25 MG/DL 2219) CALC LDL CHOL (test code = 2237) NOTE MG/DL RISK RATIO LDL/HDL (test code = (NOTE) RATIO 2238) HEMOGLOBIN [id number] 00:00:00 Test Item Value Reference Range Interpretation Comments HEMOGLOBIN A1c (test code = 13778) 8.5 % HEMOGLOBIN [id number] 00:00:00 Test Item Value Reference Range Interpretation Comments HEMOGLOBIN A1c (test code = 97718) 8.5 % HEMOGLOBIN [id number] 00:00:00 Test Item Value Reference Range Interpretation Comments HEMOGLOBIN A1c (test code = 13897) 8.5 % COMPREHENSIVE METABOLIC [id number] 00:00:00 Test Item Value Reference Range Interpretation Comments GLUCOSE (test code = 2217) 131 MG/DL BUN (test code = 2208) 16 MG/DL CREATININE (test code = 2214) 0.71 MG/DL eGFR AMER. (test code 124 ML/MIN/1.73 = 70657) eGFR NON- AMER. (test 107 ML/MIN/1.73 code = 37398) CALC BUN/CREAT (test code = 23 RATIO [...] code = 2219) 33 U/L COMPREHENSIVE METABOLIC [id number] 00:00:00 Test Item Value Reference Range Interpretation Comments GLUCOSE (test code = 2217) 131 MG/DL BUN (test code = 2208) 16 MG/DL CREATININE (test code = 2214) 0.71 MG/DL eGFR AMER. (test code 124 ML/MIN/1.73 = 36911) eGFR NON- AMER. (test 107 ML/MIN/1.73 code = 26234) CALC BUN/CREAT (test code = 23 RATIO [...] (test code = 2219) 33 U/L LIPID [id number] 00:00:00 Test Item Value Reference Range Interpretation Comments CHOLESTEROL (test code = 2210) 201 MG/DL TRIGLYCERIDES (test code = 2232) 1014 MG/DL HDL CHOLESTEROL (test code = 25 MG/DL 2220) CALC LDL CHOL (test code = 2237) NOTE MG/DL RISK RATIO LDL/HDL (test code = (NOTE) RATIO 2238) LIPID [id number] 00:00:00 Test Item Value Reference Range Interpretation Comments CHOLESTEROL (test code = 2210) 201 MG/DL TRIGLYCERIDES (test code = 2232) 1014 MG/DL HDL CHOLESTEROL (test code = 25 MG/DL 2220) CALC LDL CHOL (test code = 2237) NOTE MG/DL RISK RATIO LDL/HDL (test code = (NOTE) RATIO 2238) HEMOGLOBIN [id number] 00:00:00 Test Item Value Reference Range Interpretation Comments HEMOGLOBIN A1c (test code = 05506) 8.5 % HEMOGLOBIN [id number] 00:00:00 Test Item Value Reference Range Interpretation Comments HEMOGLOBIN A1c (test code = 08814) 8.5 % HEMOGLOBIN [id number] 00:00:00 Test Item Value Reference Range Interpretation Comments HEMOGLOBIN A1c (test code = 33526) 8.5 % COMPREHENSIVE METABOLIC [id number] 00:00:00 Test Item Value Reference Range Interpretation Comments GLUCOSE (test code = 2217) 131 MG/DL BUN (test code = 2208) 16 MG/DL CREATININE (test code = 2214) 0.71 MG/DL eGFR AMER. (test code 124 ML/MIN/1.73 = 57296) eGFR NON- AMER. (test 107 ML/MIN/1.73 code = 26905) CALC BUN/CREAT (test code = 23 RATIO [...] code = 2219) 33 U/L COMPREHENSIVE METABOLIC [id number] 00:00:00 Test Item Value Reference Range Interpretation Comments GLUCOSE (test code = 2217) 131 MG/DL BUN (test code = 2208) 16 MG/DL CREATININE (test code = 2214) 0.71 MG/DL eGFR AMER. (test code 124 ML/MIN/1.73 = 64012) eGFR NON- AMER. (test 107 ML/MIN/1.73 code = 60745) CALC BUN/CREAT (test code = 23 RATIO [...] (test code = 2219) 33 U/L LIPID [id number] 00:00:00 Test Item Value Reference Range Interpretation Comments CHOLESTEROL (test code = 2210) 201 MG/DL TRIGLYCERIDES (test code = 2232) 1014 MG/DL HDL CHOLESTEROL (test code = 25 MG/DL 2220) CALC LDL CHOL (test code = 2237) NOTE MG/DL RISK RATIO LDL/HDL (test code = (NOTE) RATIO 2238) LIPID [id number] 00:00:00 Test Item Value Reference Range Interpretation Comments CHOLESTEROL (test code = 2210) 201 MG/DL TRIGLYCERIDES (test code = 2232) 1014 MG/DL HDL CHOLESTEROL (test code = 25 MG/DL 2220) CALC LDL CHOL (test code = 2237) NOTE MG/DL RISK RATIO LDL/HDL (test code = (NOTE) RATIO 2238) HEMOGLOBIN [id number] 00:00:00 Test Item Value Reference Range Interpretation Comments HEMOGLOBIN A1c (test code = 46836) 8.5 % HEMOGLOBIN [id number] 00:00:00 Test Item Value Reference Range Interpretation Comments HEMOGLOBIN A1c (test code = 03244) 8.5 % HEMOGLOBIN [id number] 00:00:00 Test Item Value Reference Range Interpretation Comments HEMOGLOBIN A1c (test code = 88930) 8.5 % COMPREHENSIVE METABOLIC [id number] 00:00:00 Test Item Value Reference Range Interpretation Comments GLUCOSE (test code = 2217) 131 MG/DL BUN (test code = 2208) 16 MG/DL CREATININE (test code = 2214) 0.71 MG/DL eGFR AMER. (test code 124 ML/MIN/1.73 = 88303) eGFR NON- AMER. (test 107 ML/MIN/1.73 code = 86673) CALC BUN/CREAT (test code = 23 RATIO [...] code = 2219) 33 U/L COMPREHENSIVE METABOLIC [id number] 00:00:00 Test Item Value Reference Range Interpretation Comments GLUCOSE (test code = 2217) 131 MG/DL BUN (test code = 2208) 16 MG/DL CREATININE (test code = 2214) 0.71 MG/DL eGFR AMER. (test code 124 ML/MIN/1.73 = 67572) eGFR NON- AMER. (test 107 ML/MIN/1.73 code = 33683) CALC BUN/CREAT (test code = 23 RATIO [...] (test code = 2219) 33 U/L LIPID [id number] 00:00:00 Test Item Value Reference Range Interpretation Comments CHOLESTEROL (test code = 2210) 201 MG/DL TRIGLYCERIDES (test code = 2232) 1014 MG/DL HDL CHOLESTEROL (test code = 25 MG/DL 2220) CALC LDL CHOL (test code = 2237) NOTE MG/DL RISK RATIO LDL/HDL (test code = (NOTE) RATIO 2238) LIPID [id number] 00:00:00 Test Item Value Reference Range Interpretation Comments CHOLESTEROL (test code = 2210) 201 MG/DL TRIGLYCERIDES (test code = 2232) 1014 MG/DL HDL CHOLESTEROL (test code = 25 MG/DL 2220) CALC LDL CHOL (test code = 2237) NOTE MG/DL RISK RATIO LDL/HDL (test code = (NOTE) RATIO 2238) CULTURE, HERPES [id number] 00:00:00 Test Item Value Reference Range Interpretation Comments SPECIMEN SOURCE (test code = 61533) LABIA HERPES CULTURE (test code = 3533) NEGATIVE CULTURE, HERPES [id number] 00:00:00 Test Item Value Reference Range Interpretation Comments SPECIMEN SOURCE (test code = 26287) LABIA HERPES CULTURE (test code = 3533) NEGATIVE CULTURE, HERPES [id number] 00:00:00 Test Item Value Reference Range Interpretation Comments SPECIMEN SOURCE (test code = 86733) LABIA HERPES CULTURE (test code = 3533) NEGATIVE CULTURE, HERPES [id number] 00:00:00 Test Item Value Reference Range Interpretation Comments SPECIMEN SOURCE (test code = 87997) LABIA HERPES CULTURE (test code = 3533) NEGATIVE CULTURE, HERPES [id number] 00:00:00 Test Item Value Reference Range Interpretation Comments SPECIMEN SOURCE (test code = 46167) LABIA HERPES CULTURE (test code = 3533) NEGATIVE CULTURE, HERPES [id number] 00:00:00 Test Item Value Reference Range Interpretation Comments SPECIMEN SOURCE (test code = 39423) LABIA HERPES CULTURE (test code = 3533) NEGATIVE CULTURE, HERPES [id number] 00:00:00 Test Item Value Reference Range Interpretation Comments SPECIMEN SOURCE (test code = 95981) LABIA HERPES CULTURE (test code = 3533) NEGATIVE CULTURE, HERPES [id number] 00:00:00 Test Item Value Reference Range Interpretation Comments SPECIMEN SOURCE (test code = 82133) LABIA HERPES CULTURE (test code = 3533) NEGATIVE CULTURE, HERPES [id number] 00:00:00 Test Item Value Reference Range Interpretation Comments SPECIMEN SOURCE (test code = 62221) LABIA HERPES CULTURE (test code = 3533) NEGATIVE CULTURE, HERPES [id number] 00:00:00 Test Item Value Reference Range Interpretation Comments SPECIMEN SOURCE (test code = 25891) LABIA HERPES CULTURE (test code = 3533) NEGATIVE CULTURE, HERPES [id number] 00:00:00 Test Item Value Reference Range Interpretation Comments SPECIMEN SOURCE (test code = 86638) LABIA HERPES CULTURE (test code = 3533) NEGATIVE CULTURE, HERPES [id number] 00:00:00 Test Item Value Reference Range Interpretation Comments SPECIMEN SOURCE (test code = 47359) LABIA HERPES CULTURE (test code = 3533) NEGATIVE CULTURE, HERPES [id number] 00:00:00 Test Item Value Reference Range Interpretation Comments SPECIMEN SOURCE (test code = 98393) LABIA HERPES CULTURE (test code = 3533) NEGATIVE CULTURE, HERPES [id number] 00:00:00 Test Item Value Reference Range Interpretation Comments SPECIMEN SOURCE (test code = 74527) LABIA HERPES CULTURE (test code = 3533) NEGATIVE CULTURE, HERPES [id number] 00:00:00 Test Item Value Reference Range Interpretation Comments SPECIMEN SOURCE (test code = 84449) LABIA HERPES CULTURE (test code = 3533) NEGATIVE CULTURE, HERPES [id number] 00:00:00 Test Item Value Reference Range Interpretation Comments SPECIMEN SOURCE (test code = 10433) LABIA HERPES CULTURE (test code = 3533) NEGATIVE CULTURE, HERPES [id number] 00:00:00 Test Item Value Reference Range Interpretation Comments SPECIMEN SOURCE (test code = 27159) LABIA HERPES CULTURE (test code = 3533) NEGATIVE CULTURE, HERPES [id number] 00:00:00 Test Item Value Reference Range Interpretation Comments SPECIMEN SOURCE (test code = 79852) LABIA HERPES CULTURE (test code = 3533) NEGATIVE CULTURE, HERPES [id number] 00:00:00 Test Item Value Reference Range Interpretation Comments SPECIMEN SOURCE (test code = 66079) LABIA HERPES CULTURE (test code = 3533) NEGATIVE CULTURE, HERPES [id number] 00:00:00 Test Item Value Reference Range Interpretation Comments SPECIMEN SOURCE (test code = 75190) LABIA HERPES CULTURE (test code = 3533) NEGATIVE CULTURE, HERPES [id number] 00:00:00 Test Item Value Reference Range Interpretation Comments SPECIMEN SOURCE (test code = 95350) LABIA HERPES CULTURE (test code = 3533) NEGATIVE VAGINAL PATHOGENS DNA [id number] 00:00:00 Test Item Value Reference Range Interpretation Comments ANDIE SPECIES (test code = 77142) NEGATIVE G. VAGINALIS (test code = 98302) NEGATIVE T. VAGINALIS (test code = 76714) NEGATIVE VAGINAL PATHOGENS DNA [id number] 00:00:00 Test Item Value Reference Range Interpretation Comments ANDIE SPECIES (test code = 39774) NEGATIVE G. VAGINALIS (test code = 72712) NEGATIVE T. VAGINALIS (test code = 91340) NEGATIVE VAGINAL PATHOGENS DNA [id number] 00:00:00 Test Item Value Reference Range Interpretation Comments ANDIE SPECIES (test code = 90084) NEGATIVE G. VAGINALIS (test code = 50079) NEGATIVE T. VAGINALIS (test code = 77984) NEGATIVE VAGINAL PATHOGENS DNA [id number] 00:00:00 Test Item Value Reference Range Interpretation Comments ANDIE SPECIES (test code = 79267) NEGATIVE G. VAGINALIS (test code = 98413) NEGATIVE T. VAGINALIS (test code = 83354) NEGATIVE VAGINAL PATHOGENS DNA [id number] 00:00:00 Test Item Value Reference Range Interpretation Comments ANDIE SPECIES (test code = 72842) NEGATIVE G. VAGINALIS (test code = 70863) NEGATIVE T. VAGINALIS (test code = 64662) NEGATIVE VAGINAL PATHOGENS DNA [id number] 00:00:00 Test Item Value Reference Range Interpretation Comments ANDIE SPECIES (test code = 21422) NEGATIVE G. VAGINALIS (test code = 88752) NEGATIVE T. VAGINALIS (test code = 08589) NEGATIVE VAGINAL PATHOGENS DNA [id number] 00:00:00 Test Item Value Reference Range Interpretation Comments ANDIE SPECIES (test code = 38351) NEGATIVE G. VAGINALIS (test code = 51581) NEGATIVE T. VAGINALIS (test code = 23000) NEGATIVE VAGINAL PATHOGENS DNA [id number] 00:00:00 Test Item Value Reference Range Interpretation Comments ANDIE SPECIES (test code = 70080) NEGATIVE G. VAGINALIS (test code = 70893) NEGATIVE T. VAGINALIS (test code = 96714) NEGATIVE VAGINAL PATHOGENS DNA [id number] 00:00:00 Test Item Value Reference Range Interpretation Comments ANDIE SPECIES (test code = 50560) NEGATIVE G. VAGINALIS (test code = 11272) NEGATIVE T. VAGINALIS (test code = 94383) NEGATIVE VAGINAL PATHOGENS DNA [id number] 00:00:00 Test Item Value Reference Range Interpretation Comments ANDIE SPECIES (test code = 48504) NEGATIVE G. VAGINALIS (test code = 05818) NEGATIVE T. VAGINALIS (test code = 94757) NEGATIVE VAGINAL PATHOGENS DNA [id number] 00:00:00 Test Item Value Reference Range Interpretation Comments ANDIE SPECIES (test code = 57048) NEGATIVE G. VAGINALIS (test code = 41290) NEGATIVE T. VAGINALIS (test code = 13907) NEGATIVE VAGINAL PATHOGENS DNA [id number] 00:00:00 Test Item Value Reference Range Interpretation Comments ANDIE SPECIES (test code = 72118) NEGATIVE G. VAGINALIS (test code = 90670) NEGATIVE T. VAGINALIS (test code = 30224) NEGATIVE VAGINAL PATHOGENS DNA [id number] 00:00:00 Test Item Value Reference Range Interpretation Comments ANDIE SPECIES (test code = 06031) NEGATIVE G. VAGINALIS (test code = 47022) NEGATIVE T. VAGINALIS (test code = 52175) NEGATIVE VAGINAL PATHOGENS DNA [id number] 00:00:00 Test Item Value Reference Range Interpretation Comments ANDIE SPECIES (test code = 42391) NEGATIVE G. VAGINALIS (test code = 84701) NEGATIVE T. VAGINALIS (test code = 47262) NEGATIVE VAGINAL PATHOGENS DNA [id number] 00:00:00 Test Item Value Reference Range Interpretation Comments ANDIE SPECIES (test code = 14575) NEGATIVE G. VAGINALIS (test code = 65766) NEGATIVE T. VAGINALIS (test code = 45860) NEGATIVE VAGINAL PATHOGENS DNA [id number] 00:00:00 Test Item Value Reference Range Interpretation Comments ANDIE SPECIES (test code = 44064) NEGATIVE G. VAGINALIS (test code = 20476) NEGATIVE T. VAGINALIS (test code = 69624) NEGATIVE VAGINAL PATHOGENS DNA [id number] 00:00:00 Test Item Value Reference Range Interpretation Comments ANDIE SPECIES (test code = 79561) NEGATIVE G. VAGINALIS (test code = 95152) NEGATIVE T. VAGINALIS (test code = 34617) NEGATIVE VAGINAL PATHOGENS DNA [id number] 00:00:00 Test Item Value Reference Range Interpretation Comments ANDIE SPECIES (test code = 37754) NEGATIVE G. VAGINALIS (test code = 73584) NEGATIVE T. VAGINALIS (test code = 34731) NEGATIVE VAGINAL PATHOGENS DNA [id number] 00:00:00 Test Item Value Reference Range Interpretation Comments ANDIE SPECIES (test code = 71740) NEGATIVE G. VAGINALIS (test code = 89506) NEGATIVE T. VAGINALIS (test code = 73422) NEGATIVE VAGINAL PATHOGENS DNA [id number] 00:00:00 Test Item Value Reference Range Interpretation Comments ANDIE SPECIES (test code = 06947) NEGATIVE G. VAGINALIS (test code = 51709) NEGATIVE T. VAGINALIS (test code = 78995) NEGATIVE VAGINAL PATHOGENS DNA [id number] 00:00:00 Test Item Value Reference Range Interpretation Comments ANDIE SPECIES (test code = 06384) NEGATIVE G. VAGINALIS (test code = 86928) NEGATIVE T. VAGINALIS (test code = 85656) NEGATIVE COMPREHENSIVE METABOLIC [id number] 00:00:00 Test Item Value Reference Range Interpretation Comments GLUCOSE (test code = 2217) 138 MG/DL BUN (test code = 2208) 13 MG/DL CREATININE (test code = 2214) 0.50 MG/DL eGFR AMER. (test code 141 ML/MIN/1.73 = 07853) eGFR NON- AMER. (test 122 ML/MIN/1.73 code = 98906) CALC BUN/CREAT (test code = 26 RATIO [...] code = 2219) 41 U/L COMPREHENSIVE METABOLIC [id number] 00:00:00 Test Item Value Reference Range Interpretation Comments GLUCOSE (test code = 2217) 138 MG/DL BUN (test code = 2208) 13 MG/DL CREATININE (test code = 2214) 0.50 MG/DL eGFR AMER. (test code 141 ML/MIN/1.73 = 11921) eGFR NON- AMER. (test 122 ML/MIN/1.73 code = 67413) CALC BUN/CREAT (test code = 26 RATIO [...] (test code = 2219) 41 U/L LIPID [id number] 00:00:00 Test Item Value Reference Range Interpretation Comments CHOLESTEROL (test code = 2210) 359 MG/DL TRIGLYCERIDES (test code = 2232) 1659 MG/DL HDL CHOLESTEROL (test code = 15 MG/DL 2220) CALC LDL CHOL (test code = 2237) NOTE MG/DL RISK RATIO LDL/HDL (test code = (NOTE) RATIO 2238) LIPID [id number] 00:00:00 Test Item Value Reference Range Interpretation Comments CHOLESTEROL (test code = 2210) 359 MG/DL TRIGLYCERIDES (test code = 2232) 1659 MG/DL HDL CHOLESTEROL (test code = 15 MG/DL 2220) CALC LDL CHOL (test code = 2237) NOTE MG/DL RISK RATIO LDL/HDL (test code = (NOTE) RATIO 2238) CBC W/AUTO [id number] 00:00:00 Test Item Value Reference Range Interpretation [...] code = 1015) 287 K/UL CBC W/AUTO [id number] 00:00:00 Test Item Value Reference Range Interpretation [...] code = 1015) 287 K/UL CBC W/AUTO [id number] 00:00:00 Test Item Value Reference Range Interpretation [...] (test code = 1015) 287 K/UL HEMOGLOBIN [id number] 00:00:00 Test Item Value Reference Range Interpretation Comments HEMOGLOBIN A1c (test code = 47144) 9.8 % HEMOGLOBIN [id number] 00:00:00 Test Item Value Reference Range Interpretation Comments HEMOGLOBIN A1c (test code = 99167) 9.8 % HEMOGLOBIN [id number] 00:00:00 Test Item Value Reference Range Interpretation Comments HEMOGLOBIN A1c (test code = 02439) 9.8 % [id number] 00:00:00 Test Item Value Reference Range Interpretation Comments TSH (test code = 2821) 2.110 UIU/ML [id number] 00:00:00 Test Item Value Reference Range Interpretation Comments TSH (test code = 2821) 2.110 UIU/ML [id number] 00:00:00 Test Item Value Reference Range Interpretation Comments TSH (test code = 2821) 2.110 UIU/ML COMPREHENSIVE METABOLIC [id number] 00:00:00 Test Item Value Reference Range Interpretation Comments GLUCOSE (test code = 2217) 138 MG/DL BUN (test code = 2208) 13 MG/DL CREATININE (test code = 2214) 0.50 MG/DL eGFR AMER. (test code 141 ML/MIN/1.73 = 54764) eGFR NON- AMER. (test 122 ML/MIN/1.73 code = 82152) CALC BUN/CREAT (test code = 26 RATIO [...] code = 2219) 41 U/L COMPREHENSIVE METABOLIC [id number] 00:00:00 Test Item Value Reference Range Interpretation Comments GLUCOSE (test code = 2217) 138 MG/DL BUN (test code = 2208) 13 MG/DL CREATININE (test code = 2214) 0.50 MG/DL eGFR AMER. (test code 141 ML/MIN/1.73 = 73380) eGFR NON- AMER. (test 122 ML/MIN/1.73 code = 11152) CALC BUN/CREAT (test code = 26 RATIO [...] (test code = 2219) 41 U/L LIPID [id number] 00:00:00 Test Item Value Reference Range Interpretation Comments CHOLESTEROL (test code = 2210) 359 MG/DL TRIGLYCERIDES (test code = 2232) 1659 MG/DL HDL CHOLESTEROL (test code = 15 MG/DL 2220) CALC LDL CHOL (test code = 2237) NOTE MG/DL RISK RATIO LDL/HDL (test code = (NOTE) RATIO 2238) LIPID [id number] 00:00:00 Test Item Value Reference Range Interpretation Comments CHOLESTEROL (test code = 2210) 359 MG/DL TRIGLYCERIDES (test code = 2232) 1659 MG/DL HDL CHOLESTEROL (test code = 15 MG/DL 2220) CALC LDL CHOL (test code = 2237) NOTE MG/DL RISK RATIO LDL/HDL (test code = (NOTE) RATIO 2238) CBC W/AUTO [id number] 00:00:00 Test Item Value Reference Range Interpretation [...] code = 1015) 287 K/UL CBC W/AUTO [id number] 00:00:00 Test Item Value Reference Range Interpretation [...] code = 1015) 287 K/UL CBC W/AUTO [id number] 00:00:00 Test Item Value Reference Range Interpretation [...] (test code = 1015) 287 K/UL HEMOGLOBIN [id number] 00:00:00 Test Item Value Reference Range Interpretation Comments HEMOGLOBIN A1c (test code = 69954) 9.8 % HEMOGLOBIN [id number] 00:00:00 Test Item Value Reference Range Interpretation Comments HEMOGLOBIN A1c (test code = 93423) 9.8 % HEMOGLOBIN [id number] 00:00:00 Test Item Value Reference Range Interpretation Comments HEMOGLOBIN A1c (test code = 57063) 9.8 % [id number] 00:00:00 Test Item Value Reference Range Interpretation Comments TSH (test code = 2821) 2.110 UIU/ML [id number] 00:00:00 Test Item Value Reference Range Interpretation Comments TSH (test code = 2821) 2.110 UIU/ML [id number] 00:00:00 Test Item Value Reference Range Interpretation Comments TSH (test code = 2821) 2.110 UIU/ML COMPREHENSIVE METABOLIC [id number] 00:00:00 Test Item Value Reference Range Interpretation Comments GLUCOSE (test code = 2217) 138 MG/DL BUN (test code = 2208) 13 MG/DL CREATININE (test code = 2214) 0.50 MG/DL eGFR AMER. (test code 141 ML/MIN/1.73 = 72633) eGFR NON- AMER. (test 122 ML/MIN/1.73 code = 29933) CALC BUN/CREAT (test code = 26 RATIO [...] code = 2219) 41 U/L COMPREHENSIVE METABOLIC [id number] 00:00:00 Test Item Value Reference Range Interpretation Comments GLUCOSE (test code = 2217) 138 MG/DL BUN (test code = 2208) 13 MG/DL CREATININE (test code = 2214) 0.50 MG/DL eGFR AMER. (test code 141 ML/MIN/1.73 = 11985) eGFR NON- AMER. (test 122 ML/MIN/1.73 code = 88731) CALC BUN/CREAT (test code = 26 RATIO [...] (test code = 2219) 41 U/L LIPID [id number] 00:00:00 Test Item Value Reference Range Interpretation Comments CHOLESTEROL (test code = 2210) 359 MG/DL TRIGLYCERIDES (test code = 2232) 1659 MG/DL HDL CHOLESTEROL (test code = 15 MG/DL 2220) CALC LDL CHOL (test code = 2237) NOTE MG/DL RISK RATIO LDL/HDL (test code = (NOTE) RATIO 2238) LIPID [id number] 00:00:00 Test Item Value Reference Range Interpretation Comments CHOLESTEROL (test code = 2210) 359 MG/DL TRIGLYCERIDES (test code = 2232) 1659 MG/DL HDL CHOLESTEROL (test code = 15 MG/DL 2220) CALC LDL CHOL (test code = 2237) NOTE MG/DL RISK RATIO LDL/HDL (test code = (NOTE) RATIO 2238) CBC W/AUTO [id number] 00:00:00 Test Item Value Reference Range Interpretation [...] code = 1015) 287 K/UL CBC W/AUTO [id number] 00:00:00 Test Item Value Reference Range Interpretation [...] code = 1015) 287 K/UL CBC W/AUTO [id number] 00:00:00 Test Item Value Reference Range Interpretation [...] (test code = 1015) 287 K/UL HEMOGLOBIN [id number] 00:00:00 Test Item Value Reference Range Interpretation Comments HEMOGLOBIN A1c (test code = 50535) 9.8 % HEMOGLOBIN [id number] 00:00:00 Test Item Value Reference Range Interpretation Comments HEMOGLOBIN A1c (test code = 94858) 9.8 % HEMOGLOBIN [id number] 00:00:00 Test Item Value Reference Range Interpretation Comments HEMOGLOBIN A1c (test code = 82412) 9.8 % [id number] 00:00:00 Test Item Value Reference Range Interpretation Comments TSH (test code = 2821) 2.110 UIU/ML [id number] 00:00:00 Test Item Value Reference Range Interpretation Comments TSH (test code = 2821) 2.110 UIU/ML [id number] 00:00:00 Test Item Value Reference Range Interpretation Comments TSH (test code = 2821) 2.110 UIU/ML COMPREHENSIVE METABOLIC [id number] 00:00:00 Test Item Value Reference Range Interpretation Comments GLUCOSE (test code = 2217) 138 MG/DL BUN (test code = 2208) 13 MG/DL CREATININE (test code = 2214) 0.50 MG/DL eGFR AMER. (test code 141 ML/MIN/1.73 = 14726) eGFR NON- AMER. (test 122 ML/MIN/1.73 code = 39169) CALC BUN/CREAT (test code = 26 RATIO [...] code = 2219) 41 U/L COMPREHENSIVE METABOLIC [id number] 00:00:00 Test Item Value Reference Range Interpretation Comments GLUCOSE (test code = 2217) 138 MG/DL BUN (test code = 2208) 13 MG/DL CREATININE (test code = 2214) 0.50 MG/DL eGFR AMER. (test code 141 ML/MIN/1.73 = 16069) eGFR NON- AMER. (test 122 ML/MIN/1.73 code = 08274) CALC BUN/CREAT (test code = 26 RATIO [...] (test code = 2219) 41 U/L LIPID [id number] 00:00:00 Test Item Value Reference Range Interpretation Comments CHOLESTEROL (test code = 2210) 359 MG/DL TRIGLYCERIDES (test code = 2232) 1659 MG/DL HDL CHOLESTEROL (test code = 15 MG/DL 2220) CALC LDL CHOL (test code = 2237) NOTE MG/DL RISK RATIO LDL/HDL (test code = (NOTE) RATIO 2238) LIPID [id number] 00:00:00 Test Item Value Reference Range Interpretation Comments CHOLESTEROL (test code = 2210) 359 MG/DL TRIGLYCERIDES (test code = 2232) 1659 MG/DL HDL CHOLESTEROL (test code = 15 MG/DL 2220) CALC LDL CHOL (test code = 2237) NOTE MG/DL RISK RATIO LDL/HDL (test code = (NOTE) RATIO 2238) CBC W/AUTO [id number] 00:00:00 Test Item Value Reference Range Interpretation [...] code = 1015) 287 K/UL CBC W/AUTO [id number] 00:00:00 Test Item Value Reference Range Interpretation [...] code = 1015) 287 K/UL CBC W/AUTO [id number] 00:00:00 Test Item Value Reference Range Interpretation [...] (test code = 1015) 287 K/UL HEMOGLOBIN [id number] 00:00:00 Test Item Value Reference Range Interpretation Comments HEMOGLOBIN A1c (test code = 68949) 9.8 % HEMOGLOBIN [id number] 00:00:00 Test Item Value Reference Range Interpretation Comments HEMOGLOBIN A1c (test code = 38867) 9.8 % HEMOGLOBIN [id number] 00:00:00 Test Item Value Reference Range Interpretation Comments HEMOGLOBIN A1c (test code = 81855) 9.8 % [id number] 00:00:00 Test Item Value Reference Range Interpretation Comments TSH (test code = 2821) 2.110 UIU/ML [id number] 00:00:00 Test Item Value Reference Range Interpretation Comments TSH (test code = 2821) 2.110 UIU/ML [id number] 00:00:00 Test Item Value Reference Range Interpretation Comments TSH (test code = 2821) 2.110 UIU/ML COMPREHENSIVE METABOLIC [id number] 00:00:00 Test Item Value Reference Range Interpretation Comments GLUCOSE (test code = 2217) 138 MG/DL BUN (test code = 2208) 13 MG/DL CREATININE (test code = 2214) 0.50 MG/DL eGFR AMER. (test code 141 ML/MIN/1.73 = 11083) eGFR NON- AMER. (test 122 ML/MIN/1.73 code = 14129) CALC BUN/CREAT (test code = 26 RATIO [...] code = 2219) 41 U/L COMPREHENSIVE METABOLIC [id number] 00:00:00 Test Item Value Reference Range Interpretation Comments GLUCOSE (test code = 2217) 138 MG/DL BUN (test code = 2208) 13 MG/DL CREATININE (test code = 2214) 0.50 MG/DL eGFR AMER. (test code 141 ML/MIN/1.73 = 33218) eGFR NON- AMER. (test 122 ML/MIN/1.73 code = 33010) CALC BUN/CREAT (test code = 26 RATIO [...] (test code = 2219) 41 U/L LIPID [id number] 00:00:00 Test Item Value Reference Range Interpretation Comments CHOLESTEROL (test code = 2210) 359 MG/DL TRIGLYCERIDES (test code = 2232) 1659 MG/DL HDL CHOLESTEROL (test code = 15 MG/DL 2220) CALC LDL CHOL (test code = 2237) NOTE MG/DL RISK RATIO LDL/HDL (test code = (NOTE) RATIO 2238) LIPID [id number] 00:00:00 Test Item Value Reference Range Interpretation Comments CHOLESTEROL (test code = 2210) 359 MG/DL TRIGLYCERIDES (test code = 2232) 1659 MG/DL HDL CHOLESTEROL (test code = 15 MG/DL 2220) CALC LDL CHOL (test code = 2237) NOTE MG/DL RISK RATIO LDL/HDL (test code = (NOTE) RATIO 2238) CBC W/AUTO [id number] 00:00:00 Test Item Value Reference Range Interpretation [...] code = 1015) 287 K/UL CBC W/AUTO [id number] 00:00:00 Test Item Value Reference Range Interpretation [...] code = 1015) 287 K/UL CBC W/AUTO [id number] 00:00:00 Test Item Value Reference Range Interpretation [...] (test code = 1015) 287 K/UL HEMOGLOBIN [id number] 00:00:00 Test Item Value Reference Range Interpretation Comments HEMOGLOBIN A1c (test code = 74134) 9.8 % HEMOGLOBIN [id number] 00:00:00 Test Item Value Reference Range Interpretation Comments HEMOGLOBIN A1c (test code = 93277) 9.8 % HEMOGLOBIN [id number] 00:00:00 Test Item Value Reference Range Interpretation Comments HEMOGLOBIN A1c (test code = 80661) 9.8 % [id number] 00:00:00 Test Item Value Reference Range Interpretation Comments TSH (test code = 2821) 2.110 UIU/ML [id number] 00:00:00 Test Item Value Reference Range Interpretation Comments TSH (test code = 2821) 2.110 UIU/ML [id number] 00:00:00 Test Item Value Reference Range Interpretation Comments TSH (test code = 2821) 2.110 UIU/ML COMPREHENSIVE METABOLIC [id number] 00:00:00 Test Item Value Reference Range Interpretation Comments GLUCOSE (test code = 2217) 138 MG/DL BUN (test code = 2208) 13 MG/DL CREATININE (test code = 2214) 0.50 MG/DL eGFR AMER. (test code 141 ML/MIN/1.73 = 24490) eGFR NON- AMER. (test 122 ML/MIN/1.73 code = 76342) CALC BUN/CREAT (test code = 26 RATIO [...] code = 2219) 41 U/L COMPREHENSIVE METABOLIC [id number] 00:00:00 Test Item Value Reference Range Interpretation Comments GLUCOSE (test code = 2217) 138 MG/DL BUN (test code = 2208) 13 MG/DL CREATININE (test code = 2214) 0.50 MG/DL eGFR AMER. (test code 141 ML/MIN/1.73 = 63468) eGFR NON- AMER. (test 122 ML/MIN/1.73 code = 91295) CALC BUN/CREAT (test code = 26 RATIO [...] (test code = 2219) 41 U/L LIPID [id number] 00:00:00 Test Item Value Reference Range Interpretation Comments CHOLESTEROL (test code = 2210) 359 MG/DL TRIGLYCERIDES (test code = 2232) 1659 MG/DL HDL CHOLESTEROL (test code = 15 MG/DL 2220) CALC LDL CHOL (test code = 2237) NOTE MG/DL RISK RATIO LDL/HDL (test code = (NOTE) RATIO 2238) LIPID [id number] 00:00:00 Test Item Value Reference Range Interpretation Comments CHOLESTEROL (test code = 2210) 359 MG/DL TRIGLYCERIDES (test code = 2232) 1659 MG/DL HDL CHOLESTEROL (test code = 15 MG/DL 2220) CALC LDL CHOL (test code = 2237) NOTE MG/DL RISK RATIO LDL/HDL (test code = (NOTE) RATIO 2238) CBC W/AUTO [id number] 00:00:00 Test Item Value Reference Range Interpretation [...] code = 1015) 287 K/UL CBC W/AUTO [id number] 00:00:00 Test Item Value Reference Range Interpretation [...] code = 1015) 287 K/UL CBC W/AUTO [id number] 00:00:00 Test Item Value Reference Range Interpretation [...] (test code = 1015) 287 K/UL HEMOGLOBIN [id number] 00:00:00 Test Item Value Reference Range Interpretation Comments HEMOGLOBIN A1c (test code = 88088) 9.8 % HEMOGLOBIN [id number] 00:00:00 Test Item Value Reference Range Interpretation Comments HEMOGLOBIN A1c (test code = 64082) 9.8 % HEMOGLOBIN [id number] 00:00:00 Test Item Value Reference Range Interpretation Comments HEMOGLOBIN A1c (test code = 43586) 9.8 % [id number] 00:00:00 Test Item Value Reference Range Interpretation Comments TSH (test code = 2821) 2.110 UIU/ML [id number] 00:00:00 Test Item Value Reference Range Interpretation Comments TSH (test code = 2821) 2.110 UIU/ML [id number] 00:00:00 Test Item Value Reference Range Interpretation Comments TSH (test code = 2821) 2.110 UIU/ML COMPREHENSIVE METABOLIC [id number] 00:00:00 Test Item Value Reference Range Interpretation Comments GLUCOSE (test code = 2217) 138 MG/DL BUN (test code = 2208) 13 MG/DL CREATININE (test code = 2214) 0.50 MG/DL eGFR AMER. (test code 141 ML/MIN/1.73 = 12925) eGFR NON- AMER. (test 122 ML/MIN/1.73 code = 49202) CALC BUN/CREAT (test code = 26 RATIO [...] code = 2219) 41 U/L COMPREHENSIVE METABOLIC [id number] 00:00:00 Test Item Value Reference Range Interpretation Comments GLUCOSE (test code = 2217) 138 MG/DL BUN (test code = 2208) 13 MG/DL CREATININE (test code = 2214) 0.50 MG/DL eGFR AMER. (test code 141 ML/MIN/1.73 = 78114) eGFR NON- AMER. (test 122 ML/MIN/1.73 code = 96607) CALC BUN/CREAT (test code = 26 RATIO [...] (test code = 2219) 41 U/L LIPID [id number] 00:00:00 Test Item Value Reference Range Interpretation Comments CHOLESTEROL (test code = 2210) 359 MG/DL TRIGLYCERIDES (test code = 2232) 1659 MG/DL HDL CHOLESTEROL (test code = 15 MG/DL 2220) CALC LDL CHOL (test code = 2237) NOTE MG/DL RISK RATIO LDL/HDL (test code = (NOTE) RATIO 2238) LIPID [id number] 00:00:00 Test Item Value Reference Range Interpretation Comments CHOLESTEROL (test code = 2210) 359 MG/DL TRIGLYCERIDES (test code = 2232) 1659 MG/DL HDL CHOLESTEROL (test code = 15 MG/DL 2220) CALC LDL CHOL (test code = 2237) NOTE MG/DL RISK RATIO LDL/HDL (test code = (NOTE) RATIO 2238) CBC W/AUTO [id number] 00:00:00 Test Item Value Reference Range Interpretation [...] code = 1015) 287 K/UL CBC W/AUTO [id number] 00:00:00 Test Item Value Reference Range Interpretation [...] code = 1015) 287 K/UL CBC W/AUTO [id number] 00:00:00 Test Item Value Reference Range Interpretation [...] (test code = 1015) 287 K/UL HEMOGLOBIN [id number] 00:00:00 Test Item Value Reference Range Interpretation Comments HEMOGLOBIN A1c (test code = 22253) 9.8 % HEMOGLOBIN [id number] 00:00:00 Test Item Value Reference Range Interpretation Comments HEMOGLOBIN A1c (test code = 08263) 9.8 % HEMOGLOBIN [id number] 00:00:00 Test Item Value Reference Range Interpretation Comments HEMOGLOBIN A1c (test code = 47872) 9.8 % [id number] 00:00:00 Test Item Value Reference Range Interpretation Comments TSH (test code = 2821) 2.110 UIU/ML [id number] 00:00:00 Test Item Value Reference Range Interpretation Comments TSH (test code = 2821) 2.110 UIU/ML [id number] 00:00:00 Test Item Value Reference Range Interpretation Comments TSH (test code = 2821) 2.110 UIU/ML COMPREHENSIVE METABOLIC [id number] 00:00:00 Test Item Value Reference Range Interpretation Comments GLUCOSE (test code = 2217) 138 MG/DL BUN (test code = 2208) 13 MG/DL CREATININE (test code = 2214) 0.50 MG/DL eGFR AMER. (test code 141 ML/MIN/1.73 = 04451) eGFR NON- AMER. (test 122 ML/MIN/1.73 code = 52749) CALC BUN/CREAT (test code = 26 RATIO [...] (test code = 2219) 41 U/L LIPID [id number] 00:00:00 Test Item Value Reference Range Interpretation Comments CHOLESTEROL (test code = 2210) 359 MG/DL TRIGLYCERIDES (test code = 2232) 1659 MG/DL HDL CHOLESTEROL (test code = 15 MG/DL 0) CALC LDL CHOL (test code = 2237) NOTE MG/DL RISK RATIO LDL/HDL (test code = (NOTE) RATIO 2238) CBC W/AUTO [id number] 00:00:00 Test Item Value Reference Range Interpretation [...] code = 1015) 287 K/UL CBC W/AUTO [id number] 00:00:00 Test Item Value Reference Range Interpretation [...] (test code = 1015) 287 K/UL HEMOGLOBIN [id number] 00:00:00 Test Item Value Reference Range Interpretation Comments HEMOGLOBIN A1c (test code = 07308) 9.8 % HEMOGLOBIN [id number] 00:00:00 Test Item Value Reference Range Interpretation Comments HEMOGLOBIN A1c (test code = 36839) 9.8 % COMPREHENSIVE METABOLIC [id number] 00:00:00 Test Item Value Reference Range Interpretation Comments GLUCOSE (test code = 2217) 138 MG/DL BUN (test code = 2208) 13 MG/DL CREATININE (test code = 2214) 0.50 MG/DL eGFR AMER. (test code 141 ML/MIN/1.73 = 65616) eGFR NON- AMER. (test 122 ML/MIN/1.73 code = 69370) CALC BUN/CREAT (test code = 26 RATIO [...] code = 2219) 41 U/L COMPREHENSIVE METABOLIC [id number] 00:00:00 Test Item Value Reference Range Interpretation Comments GLUCOSE (test code = 2217) 138 MG/DL BUN (test code = 2208) 13 MG/DL CREATININE (test code = 2214) 0.50 MG/DL eGFR AMER. (test code 141 ML/MIN/1.73 = 78376) eGFR NON- AMER. (test 122 ML/MIN/1.73 code = 54118) CALC BUN/CREAT (test code = 26 RATIO [...] (test code = 2219) 41 U/L LIPID [id number] 00:00:00 Test Item Value Reference Range Interpretation Comments CHOLESTEROL (test code = 2210) 359 MG/DL TRIGLYCERIDES (test code = 2232) 1659 MG/DL HDL CHOLESTEROL (test code = 15 MG/DL 2220) CALC LDL CHOL (test code = 2237) NOTE MG/DL RISK RATIO LDL/HDL (test code = (NOTE) RATIO 2238) LIPID [id number] 00:00:00 Test Item Value Reference Range Interpretation Comments CHOLESTEROL (test code = 2210) 359 MG/DL TRIGLYCERIDES (test code = 2232) 1659 MG/DL HDL CHOLESTEROL (test code = 15 MG/DL 2220) CALC LDL CHOL (test code = 2237) NOTE MG/DL RISK RATIO LDL/HDL (test code = (NOTE) RATIO 2238) [id number] 00:00:00 Test Item Value Reference Range Interpretation Comments TSH (test code = 2821) 2.110 UIU/ML CBC W/AUTO [id number] 00:00:00 Test Item Value Reference Range Interpretation [...] code = 1015) 287 K/UL CBC W/AUTO [id number] 00:00:00 Test Item Value Reference Range Interpretation [...] code = 1015) 287 K/UL CBC W/AUTO [id number] 00:00:00 Test Item Value Reference Range Interpretation [...] (test code = 1015) 287 K/UL HEMOGLOBIN [id number] 00:00:00 Test Item Value Reference Range Interpretation Comments HEMOGLOBIN A1c (test code = 53862) 9.8 % HEMOGLOBIN [id number] 00:00:00 Test Item Value Reference Range Interpretation Comments HEMOGLOBIN A1c (test code = 42015) 9.8 % HEMOGLOBIN [id number] 00:00:00 Test Item Value Reference Range Interpretation Comments HEMOGLOBIN A1c (test code = 42407) 9.8 % [id number] 00:00:00 Test Item Value Reference Range Interpretation Comments TSH (test code = 2821) 2.110 UIU/ML [id number] 00:00:00 Test Item Value Reference Range Interpretation Comments TSH (test code = 2821) 2.110 UIU/ML [id number] 00:00:00 Test Item Value Reference Range Interpretation Comments TSH (test code = 2821) 2.110 UIU/ML [id number] 00:00:00 Test Item Value Reference Range Interpretation Comments TSH (test code = 2821) 2.110 UIU/ML COMPREHENSIVE METABOLIC [id number] 00:00:00 Test Item Value Reference Range Interpretation Comments GLUCOSE (test code = 2217) 138 MG/DL BUN (test code = 2208) 13 MG/DL CREATININE (test code = 2214) 0.50 MG/DL eGFR AMER. (test code 141 ML/MIN/1.73 = 33515) eGFR NON- AMER. (test 122 ML/MIN/1.73 code = 54112) CALC BUN/CREAT (test code = 26 RATIO [...] code = 2219) 41 U/L COMPREHENSIVE METABOLIC [id number] 00:00:00 Test Item Value Reference Range Interpretation Comments GLUCOSE (test code = 2217) 138 MG/DL BUN (test code = 2208) 13 MG/DL CREATININE (test code = 2214) 0.50 MG/DL eGFR AMER. (test code 141 ML/MIN/1.73 = 47113) eGFR NON- AMER. (test 122 ML/MIN/1.73 code = 96689) CALC BUN/CREAT (test code = 26 RATIO [...] (test code = 2219) 41 U/L LIPID [id number] 00:00:00 Test Item Value Reference Range Interpretation Comments CHOLESTEROL (test code = 2210) 359 MG/DL TRIGLYCERIDES (test code = 2232) 1659 MG/DL HDL CHOLESTEROL (test code = 15 MG/DL 2220) CALC LDL CHOL (test code = 2237) NOTE MG/DL RISK RATIO LDL/HDL (test code = (NOTE) RATIO 2238) LIPID [id number] 00:00:00 Test Item Value Reference Range Interpretation Comments CHOLESTEROL (test code = 2210) 359 MG/DL TRIGLYCERIDES (test code = 2232) 1659 MG/DL HDL CHOLESTEROL (test code = 15 MG/DL 2220) CALC LDL CHOL (test code = 2237) NOTE MG/DL RISK RATIO LDL/HDL (test code = (NOTE) RATIO 2238) CBC W/AUTO [id number] 00:00:00 Test Item Value Reference Range Interpretation [...] code = 1015) 287 K/UL CBC W/AUTO [id number] 00:00:00 Test Item Value Reference Range Interpretation [...] code = 1015) 287 K/UL CBC W/AUTO [id number] 00:00:00 Test Item Value Reference Range Interpretation [...] (test code = 1015) 287 K/UL HEMOGLOBIN [id number] 00:00:00 Test Item Value Reference Range Interpretation Comments HEMOGLOBIN A1c (test code = 30864) 9.8 % HEMOGLOBIN [id number] 00:00:00 Test Item Value Reference Range Interpretation Comments HEMOGLOBIN A1c (test code = 83627) 9.8 % HEMOGLOBIN [id number] 00:00:00 Test Item Value Reference Range Interpretation Comments HEMOGLOBIN A1c (test code = 39957) 9.8 % [id number] 00:00:00 Test Item Value Reference Range Interpretation Comments TSH (test code = 2821) 2.110 UIU/ML [id number] 00:00:00 Test Item Value Reference Range Interpretation Comments TSH (test code = 2821) 2.110 UIU/ML [id number] 00:00:00 Test Item Value Reference Range Interpretation Comments TSH (test code = 2821) 2.110 UIU/ML COMPREHENSIVE METABOLIC [id number] 00:00:00 Test Item Value Reference Range Interpretation Comments GLUCOSE (test code = 2217) 138 MG/DL BUN (test code = 2208) 13 MG/DL CREATININE (test code = 2214) 0.50 MG/DL eGFR AMER. (test code 141 ML/MIN/1.73 = 11738) eGFR NON- AMER. (test 122 ML/MIN/1.73 code = 77043) CALC BUN/CREAT (test code = 26 RATIO [...] code = 2219) 41 U/L COMPREHENSIVE METABOLIC [id number] 00:00:00 Test Item Value Reference Range Interpretation Comments GLUCOSE (test code = 2217) 138 MG/DL BUN (test code = 2208) 13 MG/DL CREATININE (test code = 2214) 0.50 MG/DL eGFR AMER. (test code 141 ML/MIN/1.73 = 88371) eGFR NON- AMER. (test 122 ML/MIN/1.73 code = 76780) CALC BUN/CREAT (test code = 26 RATIO [...] (test code = 2219) 41 U/L LIPID [id number] 00:00:00 Test Item Value Reference Range Interpretation Comments CHOLESTEROL (test code = 2210) 359 MG/DL TRIGLYCERIDES (test code = 2232) 1659 MG/DL HDL CHOLESTEROL (test code = 15 MG/DL 2220) CALC LDL CHOL (test code = 2237) NOTE MG/DL RISK RATIO LDL/HDL (test code = (NOTE) RATIO 2238) LIPID [id number] 00:00:00 Test Item Value Reference Range Interpretation Comments CHOLESTEROL (test code = 2210) 359 MG/DL TRIGLYCERIDES (test code = 2232) 1659 MG/DL HDL CHOLESTEROL (test code = 15 MG/DL 2220) CALC LDL CHOL (test code = 2237) NOTE MG/DL RISK RATIO LDL/HDL (test code = (NOTE) RATIO 2238) CBC W/AUTO [id number] 00:00:00 Test Item Value Reference Range Interpretation [...] code = 1015) 287 K/UL CBC W/AUTO [id number] 00:00:00 Test Item Value Reference Range Interpretation [...] code = 1015) 287 K/UL CBC W/AUTO [id number] 00:00:00 Test Item Value Reference Range Interpretation [...] (test code = 1015) 287 K/UL HEMOGLOBIN [id number] 00:00:00 Test Item Value Reference Range Interpretation Comments HEMOGLOBIN A1c (test code = 90259) 9.8 % HEMOGLOBIN [id number] 00:00:00 Test Item Value Reference Range Interpretation Comments HEMOGLOBIN A1c (test code = 01901) 9.8 % HEMOGLOBIN [id number] 00:00:00 Test Item Value Reference Range Interpretation Comments HEMOGLOBIN A1c (test code = 72354) 9.8 % [id number] 00:00:00 Test Item Value Reference Range Interpretation Comments TSH (test code = 2821) 2.110 UIU/ML [id number] 00:00:00 Test Item Value Reference Range Interpretation Comments TSH (test code = 2821) 2.110 UIU/ML [id number] 00:00:00 Test Item Value Reference Range Interpretation Comments TSH (test code = 2821) 2.110 UIU/ML LIPID [id number] 00:00:00 Test Item Value Reference Range Interpretation Comments CHOLESTEROL (test code = 2210) 195 MG/DL TRIGLYCERIDES (test code = 2232) 505 MG/DL HDL CHOLESTEROL (test code = 35 MG/DL 2220) CALC LDL CHOL (test code = 2237) NOTE MG/DL RISK RATIO LDL/HDL (test code = (NOTE) RATIO 2238) LIPID [id number] 00:00:00 Test Item Value Reference Range Interpretation [...] (test code = 2821) 2.000 UIU/ML LIPID [id number] 00:00:00 Test Item Value Reference Range Interpretation Comments CHOLESTEROL (test code = 2210) 195 MG/DL TRIGLYCERIDES (test code = 2232) 505 MG/DL HDL CHOLESTEROL (test code = 35 MG/DL 2220) CALC LDL CHOL (test code = 2237) NOTE MG/DL RISK RATIO LDL/HDL (test code = (NOTE) RATIO 2238) LIPID [id number] 00:00:00 Test Item Value Reference Range Interpretation [...] (test code = 2821) 2.000 UIU/ML LIPID [id number] 00:00:00 Test Item Value Reference Range Interpretation Comments CHOLESTEROL (test code = 2210) 195 MG/DL TRIGLYCERIDES (test code = 2232) 505 MG/DL HDL CHOLESTEROL (test code = 35 MG/DL 2220) CALC LDL CHOL (test code = 2237) NOTE MG/DL RISK RATIO LDL/HDL (test code = (NOTE) RATIO 2238) LIPID [id number] 00:00:00 Test Item Value Reference Range Interpretation [...] (test code = 2821) 2.000 UIU/ML LIPID [id number] 00:00:00 Test Item Value Reference Range Interpretation Comments CHOLESTEROL (test code = 2210) 195 MG/DL TRIGLYCERIDES (test code = 2232) 505 MG/DL HDL CHOLESTEROL (test code = 35 MG/DL 2220) CALC LDL CHOL (test code = 2237) NOTE MG/DL RISK RATIO LDL/HDL (test code = (NOTE) RATIO 2238) LIPID [id number] 00:00:00 Test Item Value Reference Range Interpretation [...] (test code = 2821) 2.000 UIU/ML LIPID [id number] 00:00:00 Test Item Value Reference Range Interpretation Comments CHOLESTEROL (test code = 2210) 195 MG/DL TRIGLYCERIDES (test code = 2232) 505 MG/DL HDL CHOLESTEROL (test code = 35 MG/DL 2220) CALC LDL CHOL (test code = 2237) NOTE MG/DL RISK RATIO LDL/HDL (test code = (NOTE) RATIO 2238) LIPID [id number] 00:00:00 Test Item Value Reference Range Interpretation [...] (test code = 2821) 2.000 UIU/ML LIPID [id number] 00:00:00 Test Item Value Reference Range Interpretation Comments CHOLESTEROL (test code = 2210) 195 MG/DL TRIGLYCERIDES (test code = 2232) 505 MG/DL HDL CHOLESTEROL (test code = 35 MG/DL 2220) CALC LDL CHOL (test code = 2237) NOTE MG/DL RISK RATIO LDL/HDL (test code = (NOTE) RATIO 2238) LIPID [id number] 00:00:00 Test Item Value Reference Range Interpretation [...] (test code = 2821) 2.000 UIU/ML LIPID [id number] 00:00:00 Test Item Value Reference Range Interpretation Comments CHOLESTEROL (test code = 2210) 195 MG/DL TRIGLYCERIDES (test code = 2232) 505 MG/DL HDL CHOLESTEROL (test code = 35 MG/DL 2220) CALC LDL CHOL (test code = 2237) NOTE MG/DL RISK RATIO LDL/HDL (test code = (NOTE) RATIO 2238) LIPID [id number] 00:00:00 Test Item Value Reference Range Interpretation [...] (test code = 2821) 2.000 UIU/ML LIPID [id number] 00:00:00 Test Item Value Reference Range Interpretation [...] (test code = 2821) 2.000 UIU/ML LIPID [id number] 00:00:00 Test Item Value Reference Range Interpretation Comments CHOLESTEROL (test code = 2210) 195 MG/DL TRIGLYCERIDES (test code = 2232) 505 MG/DL HDL CHOLESTEROL (test code = 35 MG/DL 2220) CALC LDL CHOL (test code = 2237) NOTE MG/DL RISK RATIO LDL/HDL (test code = (NOTE) RATIO 2238) LIPID [id number] 00:00:00 Test Item Value Reference Range Interpretation [...] (test code = 2821) 2.000 UIU/ML LIPID [id number] 00:00:00 Test Item Value Reference Range Interpretation Comments CHOLESTEROL (test code = 2210) 195 MG/DL TRIGLYCERIDES (test code = 2232) 505 MG/DL HDL CHOLESTEROL (test code = 35 MG/DL 2220) CALC LDL CHOL (test code = 2237) NOTE MG/DL RISK RATIO LDL/HDL (test code = (NOTE) RATIO 2238) LIPID [id number] 00:00:00 Test Item Value Reference Range Interpretation [...] (test code = 2821) 2.000 UIU/ML LIPID [id number] 00:00:00 Test Item Value Reference Range Interpretation Comments CHOLESTEROL (test code = 2210) 195 MG/DL TRIGLYCERIDES (test code = 2232) 505 MG/DL HDL CHOLESTEROL (test code = 35 MG/DL 2220) CALC LDL CHOL (test code = 2237) NOTE MG/DL RISK RATIO LDL/HDL (test code = (NOTE) RATIO 2238) LIPID [id number] 00:00:00 Test Item Value Reference Range Interpretation [...] code = 2821) 2.000 UIU/ML COMPREHENSIVE METABOLIC [id number] 00:00:00 Test Item Value Reference Range Interpretation Comments GLUCOSE (test code = 2217) 154 MG/DL BUN (test code = 2208) 12 MG/DL CREATININE (test code = 2214) 0.54 MG/DL eGFR AMER. (test code 139 ML/MIN/1.73 = 88862) eGFR NON- AMER. (test 120 ML/MIN/1.73 code = 96491) CALC BUN/CREAT (test code = 22 RATIO [...] code = 2219) 22 U/L COMPREHENSIVE METABOLIC [id number] 00:00:00 Test Item Value Reference Range Interpretation Comments GLUCOSE (test code = 2217) 154 MG/DL BUN (test code = 2208) 12 MG/DL CREATININE (test code = 2214) 0.54 MG/DL eGFR AMER. (test code 139 ML/MIN/1.73 = 70897) eGFR NON- AMER. (test 120 ML/MIN/1.73 code = 90845) CALC BUN/CREAT (test code = 22 RATIO [...] (test code = 2219) 22 U/L LIPID [id number] 00:00:00 Test Item Value Reference Range Interpretation Comments CHOLESTEROL (test code = 2210) 243 MG/DL TRIGLYCERIDES (test code = 2232) 1140 MG/DL HDL CHOLESTEROL (test code = 31 MG/DL 2220) CALC LDL CHOL (test code = 2237) NOTE MG/DL RISK RATIO LDL/HDL (test code = (NOTE) RATIO 2238) LIPID [id number] 00:00:00 Test Item Value Reference Range Interpretation Comments CHOLESTEROL (test code = 2210) 243 MG/DL TRIGLYCERIDES (test code = 2232) 1140 MG/DL HDL CHOLESTEROL (test code = 31 MG/DL 2220) CALC LDL CHOL (test code = 2237) NOTE MG/DL RISK RATIO LDL/HDL (test code = (NOTE) RATIO 2238) CBC W/AUTO [id number] 00:00:00 Test Item Value Reference Range Interpretation [...] code = 1015) 229 K/UL CBC W/AUTO [id number] 00:00:00 Test Item Value Reference Range Interpretation [...] code = 1015) 229 K/UL CBC W/AUTO [id number] 00:00:00 Test Item Value Reference Range Interpretation [...] (test code = 1015) 229 K/UL HEMOGLOBIN [id number] 00:00:00 Test Item Value Reference Range Interpretation Comments HEMOGLOBIN A1c (test code = 58454) 7.7 % HEMOGLOBIN [id number] 00:00:00 Test Item Value Reference Range Interpretation Comments HEMOGLOBIN A1c (test code = 92822) 7.7 % HEMOGLOBIN [id number] 00:00:00 Test Item Value Reference Range Interpretation Comments HEMOGLOBIN A1c (test code = 61086) 7.7 % COMPREHENSIVE METABOLIC [id number] 00:00:00 Test Item Value Reference Range Interpretation Comments GLUCOSE (test code = 2217) 154 MG/DL BUN (test code = 2208) 12 MG/DL CREATININE (test code = 2214) 0.54 MG/DL eGFR AMER. (test code 139 ML/MIN/1.73 = 41938) eGFR NON- AMER. (test 120 ML/MIN/1.73 code = 22148) CALC BUN/CREAT (test code = 22 RATIO [...] code = 2219) 22 U/L COMPREHENSIVE METABOLIC [id number] 00:00:00 Test Item Value Reference Range Interpretation Comments GLUCOSE (test code = 2217) 154 MG/DL BUN (test code = 2208) 12 MG/DL CREATININE (test code = 2214) 0.54 MG/DL eGFR AMER. (test code 139 ML/MIN/1.73 = 90559) eGFR NON- AMER. (test 120 ML/MIN/1.73 code = 73530) CALC BUN/CREAT (test code = 22 RATIO [...] (test code = 2219) 22 U/L LIPID [id number] 00:00:00 Test Item Value Reference Range Interpretation Comments CHOLESTEROL (test code = 2210) 243 MG/DL TRIGLYCERIDES (test code = 2232) 1140 MG/DL HDL CHOLESTEROL (test code = 31 MG/DL 2220) CALC LDL CHOL (test code = 2237) NOTE MG/DL RISK RATIO LDL/HDL (test code = (NOTE) RATIO 2238) LIPID [id number] 00:00:00 Test Item Value Reference Range Interpretation Comments CHOLESTEROL (test code = 2210) 243 MG/DL TRIGLYCERIDES (test code = 2232) 1140 MG/DL HDL CHOLESTEROL (test code = 31 MG/DL 2220) CALC LDL CHOL (test code = 2237) NOTE MG/DL RISK RATIO LDL/HDL (test code = (NOTE) RATIO 2238) CBC W/AUTO [id number] 00:00:00 Test Item Value Reference Range Interpretation [...] code = 1015) 229 K/UL CBC W/AUTO [id number] 00:00:00 Test Item Value Reference Range Interpretation [...] code = 1015) 229 K/UL CBC W/AUTO [id number] 00:00:00 Test Item Value Reference Range Interpretation [...] (test code = 1015) 229 K/UL HEMOGLOBIN [id number] 00:00:00 Test Item Value Reference Range Interpretation Comments HEMOGLOBIN A1c (test code = 30028) 7.7 % HEMOGLOBIN [id number] 00:00:00 Test Item Value Reference Range Interpretation Comments HEMOGLOBIN A1c (test code = 72508) 7.7 % HEMOGLOBIN [id number] 00:00:00 Test Item Value Reference Range Interpretation Comments HEMOGLOBIN A1c (test code = 83919) 7.7 % COMPREHENSIVE METABOLIC [id number] 00:00:00 Test Item Value Reference Range Interpretation Comments GLUCOSE (test code = 2217) 154 MG/DL BUN (test code = 2208) 12 MG/DL CREATININE (test code = 2214) 0.54 MG/DL eGFR AMER. (test code 139 ML/MIN/1.73 = 93551) eGFR NON- AMER. (test 120 ML/MIN/1.73 code = 11031) CALC BUN/CREAT (test code = 22 RATIO [...] code = 2219) 22 U/L COMPREHENSIVE METABOLIC [id number] 00:00:00 Test Item Value Reference Range Interpretation Comments GLUCOSE (test code = 2217) 154 MG/DL BUN (test code = 2208) 12 MG/DL CREATININE (test code = 2214) 0.54 MG/DL eGFR AMER. (test code 139 ML/MIN/1.73 = 33563) eGFR NON- AMER. (test 120 ML/MIN/1.73 code = 41905) CALC BUN/CREAT (test code = 22 RATIO [...] (test code = 2219) 22 U/L LIPID [id number] 00:00:00 Test Item Value Reference Range Interpretation Comments CHOLESTEROL (test code = 2210) 243 MG/DL TRIGLYCERIDES (test code = 2232) 1140 MG/DL HDL CHOLESTEROL (test code = 31 MG/DL 2220) CALC LDL CHOL (test code = 2237) NOTE MG/DL RISK RATIO LDL/HDL (test code = (NOTE) RATIO 2238) LIPID [id number] 00:00:00 Test Item Value Reference Range Interpretation Comments CHOLESTEROL (test code = 2210) 243 MG/DL TRIGLYCERIDES (test code = 2232) 1140 MG/DL HDL CHOLESTEROL (test code = 31 MG/DL 2220) CALC LDL CHOL (test code = 2237) NOTE MG/DL RISK RATIO LDL/HDL (test code = (NOTE) RATIO 2238) CBC W/AUTO [id number] 00:00:00 Test Item Value Reference Range Interpretation [...] code = 1015) 229 K/UL CBC W/AUTO [id number] 00:00:00 Test Item Value Reference Range Interpretation [...] code = 1015) 229 K/UL CBC W/AUTO [id number] 00:00:00 Test Item Value Reference Range Interpretation [...] (test code = 1015) 229 K/UL HEMOGLOBIN [id number] 00:00:00 Test Item Value Reference Range Interpretation Comments HEMOGLOBIN A1c (test code = 98651) 7.7 % HEMOGLOBIN [id number] 00:00:00 Test Item Value Reference Range Interpretation Comments HEMOGLOBIN A1c (test code = 36407) 7.7 % HEMOGLOBIN [id number] 00:00:00 Test Item Value Reference Range Interpretation Comments HEMOGLOBIN A1c (test code = 69532) 7.7 % COMPREHENSIVE METABOLIC [id number] 00:00:00 Test Item Value Reference Range Interpretation Comments GLUCOSE (test code = 2217) 154 MG/DL BUN (test code = 2208) 12 MG/DL CREATININE (test code = 2214) 0.54 MG/DL eGFR AMER. (test code 139 ML/MIN/1.73 = 49468) eGFR NON- AMER. (test 120 ML/MIN/1.73 code = 27764) CALC BUN/CREAT (test code = 22 RATIO [...] code = 2219) 22 U/L COMPREHENSIVE METABOLIC [id number] 00:00:00 Test Item Value Reference Range Interpretation Comments GLUCOSE (test code = 2217) 154 MG/DL BUN (test code = 2208) 12 MG/DL CREATININE (test code = 2214) 0.54 MG/DL eGFR AMER. (test code 139 ML/MIN/1.73 = 13330) eGFR NON- AMER. (test 120 ML/MIN/1.73 code = 72293) CALC BUN/CREAT (test code = 22 RATIO [...] (test code = 2219) 22 U/L LIPID [id number] 00:00:00 Test Item Value Reference Range Interpretation Comments CHOLESTEROL (test code = 2210) 243 MG/DL TRIGLYCERIDES (test code = 2232) 1140 MG/DL HDL CHOLESTEROL (test code = 31 MG/DL 2220) CALC LDL CHOL (test code = 2237) NOTE MG/DL RISK RATIO LDL/HDL (test code = (NOTE) RATIO 2238) LIPID [id number] 00:00:00 Test Item Value Reference Range Interpretation Comments CHOLESTEROL (test code = 2210) 243 MG/DL TRIGLYCERIDES (test code = 2232) 1140 MG/DL HDL CHOLESTEROL (test code = 31 MG/DL 2220) CALC LDL CHOL (test code = 2237) NOTE MG/DL RISK RATIO LDL/HDL (test code = (NOTE) RATIO 2238) CBC W/AUTO [id number] 00:00:00 Test Item Value Reference Range Interpretation [...] code = 1015) 229 K/UL CBC W/AUTO [id number] 00:00:00 Test Item Value Reference Range Interpretation [...] code = 1015) 229 K/UL CBC W/AUTO [id number] 00:00:00 Test Item Value Reference Range Interpretation [...] (test code = 1015) 229 K/UL HEMOGLOBIN [id number] 00:00:00 Test Item Value Reference Range Interpretation Comments HEMOGLOBIN A1c (test code = 29252) 7.7 % HEMOGLOBIN [id number] 00:00:00 Test Item Value Reference Range Interpretation Comments HEMOGLOBIN A1c (test code = 90337) 7.7 % HEMOGLOBIN [id number] 00:00:00 Test Item Value Reference Range Interpretation Comments HEMOGLOBIN A1c (test code = 68086) 7.7 % COMPREHENSIVE METABOLIC [id number] 00:00:00 Test Item Value Reference Range Interpretation Comments GLUCOSE (test code = 2217) 154 MG/DL BUN (test code = 2208) 12 MG/DL CREATININE (test code = 2214) 0.54 MG/DL eGFR AMER. (test code 139 ML/MIN/1.73 = 72949) eGFR NON- AMER. (test 120 ML/MIN/1.73 code = 48698) CALC BUN/CREAT (test code = 22 RATIO [...] code = 2219) 22 U/L COMPREHENSIVE METABOLIC [id number] 00:00:00 Test Item Value Reference Range Interpretation Comments GLUCOSE (test code = 2217) 154 MG/DL BUN (test code = 2208) 12 MG/DL CREATININE (test code = 2214) 0.54 MG/DL eGFR AMER. (test code 139 ML/MIN/1.73 = 13764) eGFR NON- AMER. (test 120 ML/MIN/1.73 code = 38943) CALC BUN/CREAT (test code = 22 RATIO [...] (test code = 2219) 22 U/L LIPID [id number] 00:00:00 Test Item Value Reference Range Interpretation Comments CHOLESTEROL (test code = 2210) 243 MG/DL TRIGLYCERIDES (test code = 2232) 1140 MG/DL HDL CHOLESTEROL (test code = 31 MG/DL 2220) CALC LDL CHOL (test code = 2237) NOTE MG/DL RISK RATIO LDL/HDL (test code = (NOTE) RATIO 2238) LIPID [id number] 00:00:00 Test Item Value Reference Range Interpretation Comments CHOLESTEROL (test code = 2210) 243 MG/DL TRIGLYCERIDES (test code = 2232) 1140 MG/DL HDL CHOLESTEROL (test code = 31 MG/DL 2220) CALC LDL CHOL (test code = 2237) NOTE MG/DL RISK RATIO LDL/HDL (test code = (NOTE) RATIO 2238) CBC W/AUTO [id number] 00:00:00 Test Item Value Reference Range Interpretation [...] code = 1015) 229 K/UL CBC W/AUTO [id number] 00:00:00 Test Item Value Reference Range Interpretation [...] code = 1015) 229 K/UL CBC W/AUTO [id number] 00:00:00 Test Item Value Reference Range Interpretation [...] (test code = 1015) 229 K/UL HEMOGLOBIN [id number] 00:00:00 Test Item Value Reference Range Interpretation Comments HEMOGLOBIN A1c (test code = 58828) 7.7 % HEMOGLOBIN [id number] 00:00:00 Test Item Value Reference Range Interpretation Comments HEMOGLOBIN A1c (test code = 28355) 7.7 % HEMOGLOBIN [id number] 00:00:00 Test Item Value Reference Range Interpretation Comments HEMOGLOBIN A1c (test code = 71129) 7.7 % COMPREHENSIVE METABOLIC [id number] 00:00:00 Test Item Value Reference Range Interpretation Comments GLUCOSE (test code = 2217) 154 MG/DL BUN (test code = 2208) 12 MG/DL CREATININE (test code = 2214) 0.54 MG/DL eGFR AMER. (test code 139 ML/MIN/1.73 = 41439) eGFR NON- AMER. (test 120 ML/MIN/1.73 code = 64776) CALC BUN/CREAT (test code = 22 RATIO [...] code = 2219) 22 U/L COMPREHENSIVE METABOLIC [id number] 00:00:00 Test Item Value Reference Range Interpretation Comments GLUCOSE (test code = 2217) 154 MG/DL BUN (test code = 2208) 12 MG/DL CREATININE (test code = 2214) 0.54 MG/DL eGFR AMER. (test code 139 ML/MIN/1.73 = 42847) eGFR NON- AMER. (test 120 ML/MIN/1.73 code = 81579) CALC BUN/CREAT (test code = 22 RATIO [...] (test code = 2219) 22 U/L LIPID [id number] 00:00:00 Test Item Value Reference Range Interpretation Comments CHOLESTEROL (test code = 2210) 243 MG/DL TRIGLYCERIDES (test code = 2232) 1140 MG/DL HDL CHOLESTEROL (test code = 31 MG/DL 2220) CALC LDL CHOL (test code = 2237) NOTE MG/DL RISK RATIO LDL/HDL (test code = (NOTE) RATIO 2238) LIPID [id number] 00:00:00 Test Item Value Reference Range Interpretation Comments CHOLESTEROL (test code = 2210) 243 MG/DL TRIGLYCERIDES (test code = 2232) 1140 MG/DL HDL CHOLESTEROL (test code = 31 MG/DL 2220) CALC LDL CHOL (test code = 2237) NOTE MG/DL RISK RATIO LDL/HDL (test code = (NOTE) RATIO 2238) CBC W/AUTO [id number] 00:00:00 Test Item Value Reference Range Interpretation [...] code = 1015) 229 K/UL CBC W/AUTO [id number] 00:00:00 Test Item Value Reference Range Interpretation [...] code = 1015) 229 K/UL CBC W/AUTO [id number] 00:00:00 Test Item Value Reference Range Interpretation [...] (test code = 1015) 229 K/UL HEMOGLOBIN [id number] 00:00:00 Test Item Value Reference Range Interpretation Comments HEMOGLOBIN A1c (test code = 94436) 7.7 % HEMOGLOBIN [id number] 00:00:00 Test Item Value Reference Range Interpretation Comments HEMOGLOBIN A1c (test code = 30443) 7.7 % HEMOGLOBIN [id number] 00:00:00 Test Item Value Reference Range Interpretation Comments HEMOGLOBIN A1c (test code = 27392) 7.7 % COMPREHENSIVE METABOLIC [id number] 00:00:00 Test Item Value Reference Range Interpretation Comments GLUCOSE (test code = 2217) 154 MG/DL BUN (test code = 2208) 12 MG/DL CREATININE (test code = 2214) 0.54 MG/DL eGFR AMER. (test code 139 ML/MIN/1.73 = 63554) eGFR NON- AMER. (test 120 ML/MIN/1.73 code [...] code = 2219) 22 U/L COMPREHENSIVE METABOLIC [id number] 00:00:00 Test Item Value Reference Range Interpretation Comments GLUCOSE (test code = 2217) 154 MG/DL BUN (test code = 2208) 12 MG/DL CREATININE (test code = 2214) 0.54 MG/DL eGFR AMER. (test code 139 ML/MIN/1.73 = 55740) eGFR NON- AMER. (test 120 ML/MIN/1.73 code = 36815) CALC BUN/CREAT (test code = 22 RATIO [...] (test code = 2219) 22 U/L LIPID [id number] 00:00:00 Test Item Value Reference Range Interpretation Comments CHOLESTEROL (test code = 2210) 243 MG/DL TRIGLYCERIDES (test code = 2232) 1140 MG/DL HDL CHOLESTEROL (test code = 31 MG/DL 2220) CALC LDL CHOL (test code = 2237) NOTE MG/DL RISK RATIO LDL/HDL (test code = (NOTE) RATIO 2238) COMPREHENSIVE METABOLIC [id number] 00:00:00 Test Item Value Reference Range Interpretation Comments GLUCOSE (test code = 2217) 154 MG/DL BUN (test code = 2208) 12 MG/DL CREATININE (test code = 2214) 0.54 MG/DL eGFR AMER. (test code 139 ML/MIN/1.73 = 49947) eGFR NON- AMER. (test 120 ML/MIN/1.73 code = 67446) CALC BUN/CREAT (test code = 22 RATIO [...] (test code = 2219) 22 U/L LIPID [id number] 00:00:00 Test Item Value Reference Range Interpretation Comments CHOLESTEROL (test code = 2210) 243 MG/DL TRIGLYCERIDES (test code = 2232) 1140 MG/DL HDL CHOLESTEROL (test code = 31 MG/DL 2220) CALC LDL CHOL (test code = 2237) NOTE MG/DL RISK RATIO LDL/HDL (test code = (NOTE) RATIO 2238) CBC W/AUTO [id number] 00:00:00 Test Item Value Reference Range Interpretation [...] code = 1015) 229 K/UL CBC W/AUTO [id number] 00:00:00 Test Item Value Reference Range Interpretation [...] code = 1015) 229 K/UL CBC W/AUTO [id number] 00:00:00 Test Item Value Reference Range Interpretation [...] (test code = 1015) 229 K/UL HEMOGLOBIN [id number] 00:00:00 Test Item Value Reference Range Interpretation Comments HEMOGLOBIN A1c (test code = 70108) 7.7 % HEMOGLOBIN [id number] 00:00:00 Test Item Value Reference Range Interpretation Comments HEMOGLOBIN A1c (test code = 19496) 7.7 % HEMOGLOBIN [id number] 00:00:00 Test Item Value Reference Range Interpretation Comments HEMOGLOBIN A1c (test code = 23137) 7.7 % LIPID [id number] 00:00:00 Test Item Value Reference Range Interpretation Comments CHOLESTEROL (test code = 2210) 243 MG/DL TRIGLYCERIDES (test code = 2232) 1140 MG/DL HDL CHOLESTEROL (test code = 31 MG/DL 2220) CALC LDL CHOL (test code = 2237) NOTE MG/DL RISK RATIO LDL/HDL (test code = (NOTE) RATIO 2238) CBC W/AUTO [id number] 00:00:00 Test Item Value Reference Range Interpretation [...] code = 1015) 229 K/UL CBC W/AUTO [id number] 00:00:00 Test Item Value Reference Range Interpretation [...] code = 1015) 229 K/UL COMPREHENSIVE METABOLIC [id number] 00:00:00 Test Item Value Reference Range Interpretation Comments GLUCOSE (test code = 2217) 154 MG/DL BUN (test code = 2208) 12 MG/DL CREATININE (test code = 2214) 0.54 MG/DL eGFR AMER. (test code 139 ML/MIN/1.73 = 94892) eGFR NON- AMER. (test 120 ML/MIN/1.73 code = 60940) CALC BUN/CREAT (test code = 22 RATIO [...] code = 2219) 22 U/L COMPREHENSIVE METABOLIC [id number] 00:00:00 Test Item Value Reference Range Interpretation Comments GLUCOSE (test code = 2217) 154 MG/DL BUN (test code = 2208) 12 MG/DL CREATININE (test code = 2214) 0.54 MG/DL eGFR AMER. (test code 139 ML/MIN/1.73 = 04292) eGFR NON- AMER. (test 120 ML/MIN/1.73 code = 14103) CALC BUN/CREAT (test code = 22 RATIO [...] (test code = 2219) 22 U/L HEMOGLOBIN [id number] 00:00:00 Test Item Value Reference Range Interpretation Comments HEMOGLOBIN A1c (test code = 58470) 7.7 % LIPID [id number] 00:00:00 Test Item Value Reference Range Interpretation Comments CHOLESTEROL (test code = 2210) 243 MG/DL TRIGLYCERIDES (test code = 2232) 1140 MG/DL HDL CHOLESTEROL (test code = 31 MG/DL 2220) CALC LDL CHOL (test code = 2237) NOTE MG/DL RISK RATIO LDL/HDL (test code = (NOTE) RATIO 2238) LIPID [id number] 00:00:00 Test Item Value Reference Range Interpretation Comments CHOLESTEROL (test code = 2210) 243 MG/DL TRIGLYCERIDES (test code = 2232) 1140 MG/DL HDL CHOLESTEROL (test code = 31 MG/DL 2220) CALC LDL CHOL (test code = 2237) NOTE MG/DL RISK RATIO LDL/HDL (test code = (NOTE) RATIO 2238) HEMOGLOBIN [id number] 00:00:00 Test Item Value Reference Range Interpretation Comments HEMOGLOBIN A1c (test code = 54879) 7.7 % CBC W/AUTO [id number] 00:00:00 Test Item Value Reference Range Interpretation [...] code = 1015) 229 K/UL CBC W/AUTO [id number] 00:00:00 Test Item Value Reference Range Interpretation [...] code = 1015) 229 K/UL CBC W/AUTO [id number] 00:00:00 Test Item Value Reference Range Interpretation [...] (test code = 1015) 229 K/UL HEMOGLOBIN [id number] 00:00:00 Test Item Value Reference Range Interpretation Comments HEMOGLOBIN A1c (test code = 43941) 7.7 % HEMOGLOBIN [id number] 00:00:00 Test Item Value Reference Range Interpretation Comments HEMOGLOBIN A1c (test code = 27302) 7.7 % HEMOGLOBIN [id number] 00:00:00 Test Item Value Reference Range Interpretation Comments HEMOGLOBIN A1c (test code = 94792) 7.7 % COMPREHENSIVE METABOLIC [id number] 00:00:00 Test Item Value Reference Range Interpretation Comments GLUCOSE (test code = 2217) 154 MG/DL BUN (test code = 2208) 12 MG/DL CREATININE (test code = 2214) 0.54 MG/DL eGFR AMER. (test code 139 ML/MIN/1.73 = 48671) eGFR NON- AMER. (test 120 ML/MIN/1.73 code = 12020) CALC BUN/CREAT (test code = 22 RATIO [...] code = 2219) 22 U/L COMPREHENSIVE METABOLIC [id number] 00:00:00 Test Item Value Reference Range Interpretation Comments GLUCOSE (test code = 2217) 154 MG/DL BUN (test code = 2208) 12 MG/DL CREATININE (test code = 2214) 0.54 MG/DL eGFR AMER. (test code 139 ML/MIN/1.73 = 18229) eGFR NON- AMER. (test 120 ML/MIN/1.73 code = 33161) CALC BUN/CREAT (test code = 22 RATIO [...] (test code = 2219) 22 U/L LIPID [id number] 00:00:00 Test Item Value Reference Range Interpretation Comments CHOLESTEROL (test code = 2210) 243 MG/DL TRIGLYCERIDES (test code = 2232) 1140 MG/DL HDL CHOLESTEROL (test code = 31 MG/DL 2220) CALC LDL CHOL (test code = 2237) NOTE MG/DL RISK RATIO LDL/HDL (test code = (NOTE) RATIO 2238) LIPID [id number] 00:00:00 Test Item Value Reference Range Interpretation Comments CHOLESTEROL (test code = 2210) 243 MG/DL TRIGLYCERIDES (test code = 2232) 1140 MG/DL HDL CHOLESTEROL (test code = 31 MG/DL 2220) CALC LDL CHOL (test code = 2237) NOTE MG/DL RISK RATIO LDL/HDL (test code = (NOTE) RATIO 2238) CBC W/AUTO [id number] 00:00:00 Test Item Value Reference Range Interpretation [...] code = 1015) 229 K/UL CBC W/AUTO [id number] 00:00:00 Test Item Value Reference Range Interpretation [...] code = 1015) 229 K/UL CBC W/AUTO [id number] 00:00:00 Test Item Value Reference Range Interpretation [...] (test code = 1015) 229 K/UL HEMOGLOBIN [id number] 00:00:00 Test Item Value Reference Range Interpretation Comments HEMOGLOBIN A1c (test code = 36864) 7.7 % HEMOGLOBIN [id number] 00:00:00 Test Item Value Reference Range Interpretation Comments HEMOGLOBIN A1c (test code = 32943) 7.7 % HEMOGLOBIN [id number] 00:00:00 Test Item Value Reference Range Interpretation Comments HEMOGLOBIN A1c (test code = 47003) 7.7 % COMPREHENSIVE METABOLIC [id number] 00:00:00 Test Item Value Reference Range Interpretation Comments GLUCOSE (test code = 2217) 154 MG/DL BUN (test code = 2208) 12 MG/DL CREATININE (test code = 2214) 0.54 MG/DL eGFR AMER. (test code 139 ML/MIN/1.73 = 19733) eGFR NON- AMER. (test 120 ML/MIN/1.73 code = 38819) CALC BUN/CREAT (test code = 22 RATIO [...] code = 2219) 22 U/L COMPREHENSIVE METABOLIC [id number] 00:00:00 Test Item Value Reference Range Interpretation Comments GLUCOSE (test code = 2217) 154 MG/DL BUN (test code = 2208) 12 MG/DL CREATININE (test code = 2214) 0.54 MG/DL eGFR AMER. (test code 139 ML/MIN/1.73 = 23525) eGFR NON- AMER. (test 120 ML/MIN/1.73 code = 25310) CALC BUN/CREAT (test code = 22 RATIO [...] (test code = 2219) 22 U/L LIPID [id number] 00:00:00 Test Item Value Reference Range Interpretation Comments CHOLESTEROL (test code = 2210) 243 MG/DL TRIGLYCERIDES (test code = 2232) 1140 MG/DL HDL CHOLESTEROL (test code = 31 MG/DL 2220) CALC LDL CHOL (test code = 2237) NOTE MG/DL RISK RATIO LDL/HDL (test code = (NOTE) RATIO 2238) LIPID [id number] 00:00:00 Test Item Value Reference Range Interpretation Comments CHOLESTEROL (test code = 2210) 243 MG/DL TRIGLYCERIDES (test code = 2232) 1140 MG/DL HDL CHOLESTEROL (test code = 31 MG/DL 2220) CALC LDL CHOL (test code = 2237) NOTE MG/DL RISK RATIO LDL/HDL (test code = (NOTE) RATIO 2238) CBC W/AUTO [id number] 00:00:00 Test Item Value Reference Range Interpretation [...] code = 1015) 229 K/UL CBC W/AUTO [id number] 00:00:00 Test Item Value Reference Range Interpretation [...] code = 1015) 229 K/UL CBC W/AUTO [id number] 00:00:00 Test Item Value Reference Range Interpretation [...] (test code = 1015) 229 K/UL HEMOGLOBIN [id number] 00:00:00 Test Item Value Reference Range Interpretation Comments HEMOGLOBIN A1c (test code = 04605) 7.7 % HEMOGLOBIN [id number] 00:00:00 Test Item Value Reference Range Interpretation Comments HEMOGLOBIN A1c (test code = 93059) 7.7 % HEMOGLOBIN [id number] 00:00:00 Test Item Value Reference Range Interpretation Comments HEMOGLOBIN A1c (test code = 76251) 7.7 % [id number] 00:00:00 Test Item Value Reference Range Interpretation Comments MAGNESIUM (test code = 2226) 1.4 MG/DL [id number] 00:00:00 Test Item Value Reference Range Interpretation Comments MAGNESIUM (test code = 2226) 1.4 MG/DL [id number] 00:00:00 Test Item Value Reference Range Interpretation Comments MAGNESIUM (test code = 2226) 1.4 MG/DL COMPREHENSIVE METABOLIC [id number] 00:00:00 Test Item Value Reference Range Interpretation Comments GLUCOSE (test code = 2217) 234 MG/DL BUN (test code = 2208) 17 MG/DL CREATININE (test code = 2214) 0.54 MG/DL eGFR AMER. (test code 139 ML/MIN/1.73 = 92850) eGFR NON- AMER. (test 120 ML/MIN/1.73 code = 44809) CALC BUN/CREAT (test code = 31 RATIO [...] code = 2219) 22 U/L COMPREHENSIVE METABOLIC [id number] 00:00:00 Test Item Value Reference Range Interpretation Comments GLUCOSE (test code = 2217) 234 MG/DL BUN (test code = 2208) 17 MG/DL CREATININE (test code = 2214) 0.54 MG/DL eGFR AMER. (test code 139 ML/MIN/1.73 = 54166) eGFR NON- AMER. (test 120 ML/MIN/1.73 code = 46005) CALC BUN/CREAT (test code = 31 RATIO [...] (test code = 2219) 22 U/L HEMOGLOBIN [id number] 00:00:00 Test Item Value Reference Range Interpretation Comments HEMOGLOBIN A1c (test code = 76841) 7.7 % HEMOGLOBIN [id number] 00:00:00 Test Item Value Reference Range Interpretation Comments HEMOGLOBIN A1c (test code = 70482) 7.7 % HEMOGLOBIN [id number] 00:00:00 Test Item Value Reference Range Interpretation Comments HEMOGLOBIN A1c (test code = 35781) 7.7 % CBC W/AUTO [id number] 00:00:00 Test Item Value Reference Range Interpretation [...] code = 1015) 224 K/UL CBC W/AUTO [id number] 00:00:00 Test Item Value Reference Range Interpretation [...] code = 1015) 224 K/UL CBC W/AUTO [id number] 00:00:00 Test Item Value Reference Range Interpretation [...] TSH (test code = 2821) <0.10 UIU/ML [id number] 00:00:00 Test Item Value Reference Range Interpretation Comments MAGNESIUM (test code = 2226) 1.4 MG/DL [id number] 00:00:00 Test Item Value Reference Range Interpretation Comments MAGNESIUM (test code = 2226) 1.4 MG/DL [id number] 00:00:00 Test Item Value Reference Range Interpretation Comments MAGNESIUM (test code = 2226) 1.4 MG/DL COMPREHENSIVE METABOLIC [id number] 00:00:00 Test Item Value Reference Range Interpretation Comments GLUCOSE (test code = 2217) 234 MG/DL BUN (test code = 2208) 17 MG/DL CREATININE (test code = 2214) 0.54 MG/DL eGFR AMER. (test code 139 ML/MIN/1.73 = 50504) eGFR NON- AMER. (test 120 ML/MIN/1.73 code = 07639) CALC BUN/CREAT (test code = 31 RATIO [...] code = 2219) 22 U/L COMPREHENSIVE METABOLIC [id number] 00:00:00 Test Item Value Reference Range Interpretation Comments GLUCOSE (test code = 2217) 234 MG/DL BUN (test code = 2208) 17 MG/DL CREATININE (test code = 2214) 0.54 MG/DL eGFR AMER. (test code 139 ML/MIN/1.73 = 04384) eGFR NON- AMER. (test 120 ML/MIN/1.73 code = 39822) CALC BUN/CREAT (test code = 31 RATIO [...] (test code = 2219) 22 U/L HEMOGLOBIN [id number] 00:00:00 Test Item Value Reference Range Interpretation Comments HEMOGLOBIN A1c (test code = 12372) 7.7 % HEMOGLOBIN [id number] 00:00:00 Test Item Value Reference Range Interpretation Comments HEMOGLOBIN A1c (test code = 03825) 7.7 % HEMOGLOBIN [id number] 00:00:00 Test Item Value Reference Range Interpretation Comments HEMOGLOBIN A1c (test code = 13914) 7.7 % CBC W/AUTO [id number] 00:00:00 Test Item Value Reference Range Interpretation [...] code = 1015) 224 K/UL CBC W/AUTO [id number] 00:00:00 Test Item Value Reference Range Interpretation [...] code = 1015) 224 K/UL CBC W/AUTO [id number] 00:00:00 Test Item Value Reference Range Interpretation [...] TSH (test code = 2821) <0.10 UIU/ML [id number] 00:00:00 Test Item Value Reference Range Interpretation Comments MAGNESIUM (test code = 2226) 1.4 MG/DL [id number] 00:00:00 Test Item Value Reference Range Interpretation Comments MAGNESIUM (test code = 2226) 1.4 MG/DL [id number] 00:00:00 Test Item Value Reference Range Interpretation Comments MAGNESIUM (test code = 2226) 1.4 MG/DL COMPREHENSIVE METABOLIC [id number] 00:00:00 Test Item Value Reference Range Interpretation Comments GLUCOSE (test code = 2217) 234 MG/DL BUN (test code = 2208) 17 MG/DL CREATININE (test code = 2214) 0.54 MG/DL eGFR AMER. (test code 139 ML/MIN/1.73 = 12858) eGFR NON- AMER. (test 120 ML/MIN/1.73 code = 48643) CALC BUN/CREAT (test code = 31 RATIO [...] code = 2219) 22 U/L COMPREHENSIVE METABOLIC [id number] 00:00:00 Test Item Value Reference Range Interpretation Comments GLUCOSE (test code = 2217) 234 MG/DL BUN (test code = 2208) 17 MG/DL CREATININE (test code = 2214) 0.54 MG/DL eGFR AMER. (test code 139 ML/MIN/1.73 = 22918) eGFR NON- AMER. (test 120 ML/MIN/1.73 code = 45680) CALC BUN/CREAT (test code = 31 RATIO [...] (test code = 2219) 22 U/L HEMOGLOBIN [id number] 00:00:00 Test Item Value Reference Range Interpretation Comments HEMOGLOBIN A1c (test code = 63485) 7.7 % HEMOGLOBIN [id number] 00:00:00 Test Item Value Reference Range Interpretation Comments HEMOGLOBIN A1c (test code = 24176) 7.7 % HEMOGLOBIN [id number] 00:00:00 Test Item Value Reference Range Interpretation Comments HEMOGLOBIN A1c (test code = 45888) 7.7 % CBC W/AUTO [id number] 00:00:00 Test Item Value Reference Range Interpretation [...] code = 1015) 224 K/UL CBC W/AUTO [id number] 00:00:00 Test Item Value Reference Range Interpretation [...] code = 1015) 224 K/UL CBC W/AUTO [id number] 00:00:00 Test Item Value Reference Range Interpretation [...] TSH (test code = 2821) <0.10 UIU/ML [id number] 00:00:00 Test Item Value Reference Range Interpretation Comments MAGNESIUM (test code = 2226) 1.4 MG/DL [id number] 00:00:00 Test Item Value Reference Range Interpretation Comments MAGNESIUM (test code = 2226) 1.4 MG/DL [id number] 00:00:00 Test Item Value Reference Range Interpretation Comments MAGNESIUM (test code = 2226) 1.4 MG/DL COMPREHENSIVE METABOLIC [id number] 00:00:00 Test Item Value Reference Range Interpretation Comments GLUCOSE (test code = 2217) 234 MG/DL BUN (test code = 2208) 17 MG/DL CREATININE (test code = 2214) 0.54 MG/DL eGFR AMER. (test code 139 ML/MIN/1.73 = 56126) eGFR NON- AMER. (test 120 ML/MIN/1.73 code = 29464) CALC BUN/CREAT (test code = 31 RATIO [...] code = 2219) 22 U/L COMPREHENSIVE METABOLIC [id number] 00:00:00 Test Item Value Reference Range Interpretation Comments GLUCOSE (test code = 2217) 234 MG/DL BUN (test code = 2208) 17 MG/DL CREATININE (test code = 2214) 0.54 MG/DL eGFR AMER. (test code 139 ML/MIN/1.73 = 93148) eGFR NON- AMER. (test 120 ML/MIN/1.73 code = 59150) CALC BUN/CREAT (test code = 31 RATIO [...] (test code = 2219) 22 U/L HEMOGLOBIN [id number] 00:00:00 Test Item Value Reference Range Interpretation Comments HEMOGLOBIN A1c (test code = 52979) 7.7 % HEMOGLOBIN [id number] 00:00:00 Test Item Value Reference Range Interpretation Comments HEMOGLOBIN A1c (test code = 59481) 7.7 % HEMOGLOBIN [id number] 00:00:00 Test Item Value Reference Range Interpretation Comments HEMOGLOBIN A1c (test code = 70873) 7.7 % CBC W/AUTO [id number] 00:00:00 Test Item Value Reference Range Interpretation [...] code = 1015) 224 K/UL CBC W/AUTO [id number] 00:00:00 Test Item Value Reference Range Interpretation [...] code = 1015) 224 K/UL CBC W/AUTO [id number] 00:00:00 Test Item Value Reference Range Interpretation [...] TSH (test code = 2821) <0.10 UIU/ML [id number] 00:00:00 Test Item Value Reference Range Interpretation Comments MAGNESIUM (test code = 2226) 1.4 MG/DL [id number] 00:00:00 Test Item Value Reference Range Interpretation Comments MAGNESIUM (test code = 2226) 1.4 MG/DL [id number] 00:00:00 Test Item Value Reference Range Interpretation Comments MAGNESIUM (test code = 2226) 1.4 MG/DL COMPREHENSIVE METABOLIC [id number] 00:00:00 Test Item Value Reference Range Interpretation Comments GLUCOSE (test code = 2217) 234 MG/DL BUN (test code = 2208) 17 MG/DL CREATININE (test code = 2214) 0.54 MG/DL eGFR AMER. (test code 139 ML/MIN/1.73 = 19371) eGFR NON- AMER. (test 120 ML/MIN/1.73 code = 76789) CALC BUN/CREAT (test code = 31 RATIO [...] code = 2219) 22 U/L COMPREHENSIVE METABOLIC [id number] 00:00:00 Test Item Value Reference Range Interpretation Comments GLUCOSE (test code = 2217) 234 MG/DL BUN (test code = 2208) 17 MG/DL CREATININE (test code = 2214) 0.54 MG/DL eGFR AMER. (test code 139 ML/MIN/1.73 = 63369) eGFR NON- AMER. (test 120 ML/MIN/1.73 code = 86070) CALC BUN/CREAT (test code = 31 RATIO [...] (test code = 2219) 22 U/L HEMOGLOBIN [id number] 00:00:00 Test Item Value Reference Range Interpretation Comments HEMOGLOBIN A1c (test code = 64482) 7.7 % HEMOGLOBIN [id number] 00:00:00 Test Item Value Reference Range Interpretation Comments HEMOGLOBIN A1c (test code = 89321) 7.7 % HEMOGLOBIN [id number] 00:00:00 Test Item Value Reference Range Interpretation Comments HEMOGLOBIN A1c (test code = 36703) 7.7 % CBC W/AUTO [id number] 00:00:00 Test Item Value Reference Range Interpretation [...] code = 1015) 224 K/UL CBC W/AUTO [id number] 00:00:00 Test Item Value Reference Range Interpretation [...] code = 1015) 224 K/UL CBC W/AUTO [id number] 00:00:00 Test Item Value Reference Range Interpretation [...] TSH (test code = 2821) <0.10 UIU/ML [id number] 00:00:00 Test Item Value Reference Range Interpretation Comments MAGNESIUM (test code = 2226) 1.4 MG/DL [id number] 00:00:00 Test Item Value Reference Range Interpretation Comments MAGNESIUM (test code = 2226) 1.4 MG/DL [id number] 00:00:00 Test Item Value Reference Range Interpretation Comments MAGNESIUM (test code = 2226) 1.4 MG/DL COMPREHENSIVE METABOLIC [id number] 00:00:00 Test Item Value Reference Range Interpretation Comments GLUCOSE (test code = 2217) 234 MG/DL BUN (test code = 2208) 17 MG/DL CREATININE (test code = 2214) 0.54 MG/DL eGFR AMER. (test code 139 ML/MIN/1.73 = 28139) eGFR NON- AMER. (test 120 ML/MIN/1.73 code = 96578) CALC BUN/CREAT (test code = 31 RATIO [...] code = 2219) 22 U/L COMPREHENSIVE METABOLIC [id number] 00:00:00 Test Item Value Reference Range Interpretation Comments GLUCOSE (test code = 2217) 234 MG/DL BUN (test code = 2208) 17 MG/DL CREATININE (test code = 2214) 0.54 MG/DL eGFR AMER. (test code 139 ML/MIN/1.73 = 12150) eGFR NON- AMER. (test 120 ML/MIN/1.73 code = 14950) CALC BUN/CREAT (test code = 31 RATIO [...] (test code = 2219) 22 U/L HEMOGLOBIN [id number] 00:00:00 Test Item Value Reference Range Interpretation Comments HEMOGLOBIN A1c (test code = 49489) 7.7 % HEMOGLOBIN [id number] 00:00:00 Test Item Value Reference Range Interpretation Comments HEMOGLOBIN A1c (test code = 32786) 7.7 % HEMOGLOBIN [id number] 00:00:00 Test Item Value Reference Range Interpretation Comments HEMOGLOBIN A1c (test code = 07023) 7.7 % CBC W/AUTO [id number] 00:00:00 Test Item Value Reference Range Interpretation [...] code = 1015) 224 K/UL CBC W/AUTO [id number] 00:00:00 Test Item Value Reference Range Interpretation [...] code = 1015) 224 K/UL CBC W/AUTO [id number] 00:00:00 Test Item Value Reference Range Interpretation [...] TSH (test code = 2821) <0.10 UIU/ML [id number] 00:00:00 Test Item Value Reference Range Interpretation Comments MAGNESIUM (test code = 2226) 1.4 MG/DL [id number] 00:00:00 Test Item Value Reference Range Interpretation Comments MAGNESIUM (test code = 2226) 1.4 MG/DL [id number] 00:00:00 Test Item Value Reference Range Interpretation Comments MAGNESIUM (test code = 2226) 1.4 MG/DL [id number] 00:00:00 Test Item Value Reference Range Interpretation Comments MAGNESIUM (test code = 2226) 1.4 MG/DL COMPREHENSIVE METABOLIC [id number] 00:00:00 Test Item Value Reference Range Interpretation Comments GLUCOSE (test code = 2217) 234 MG/DL BUN (test code = 2208) 17 MG/DL CREATININE (test code = 2214) 0.54 MG/DL eGFR AMER. (test code 139 ML/MIN/1.73 = 39354) eGFR NON- AMER. (test 120 ML/MIN/1.73 code = 20857) CALC BUN/CREAT (test code = 31 RATIO [...] code = 2219) 22 U/L COMPREHENSIVE METABOLIC [id number] 00:00:00 Test Item Value Reference Range Interpretation Comments GLUCOSE (test code = 2217) 234 MG/DL BUN (test code = 2208) 17 MG/DL CREATININE (test code = 2214) 0.54 MG/DL eGFR AMER. (test code 139 ML/MIN/1.73 = 57237) eGFR NON- AMER. (test 120 ML/MIN/1.73 code = 56199) CALC BUN/CREAT (test code = 31 RATIO [...] (test code = 2219) 22 U/L HEMOGLOBIN [id number] 00:00:00 Test Item Value Reference Range Interpretation Comments HEMOGLOBIN A1c (test code = 77215) 7.7 % HEMOGLOBIN [id number] 00:00:00 Test Item Value Reference Range Interpretation Comments HEMOGLOBIN A1c (test code = 60162) 7.7 % HEMOGLOBIN [id number] 00:00:00 Test Item Value Reference Range Interpretation Comments HEMOGLOBIN A1c (test code = 15402) 7.7 % [id number] 00:00:00 Test Item Value Reference Range Interpretation Comments MAGNESIUM (test code = 2226) 1.4 MG/DL CBC W/AUTO [id number] 00:00:00 Test Item Value Reference Range Interpretation [...] code = 1015) 224 K/UL CBC W/AUTO [id number] 00:00:00 Test Item Value Reference Range Interpretation [...] code = 1015) 224 K/UL CBC W/AUTO [id number] 00:00:00 Test Item Value Reference Range Interpretation [...] code = 2821) <0.10 UIU/ML COMPREHENSIVE METABOLIC [id number] 00:00:00 Test Item Value Reference Range Interpretation Comments GLUCOSE (test code = 2217) 234 MG/DL BUN (test code = 2208) 17 MG/DL CREATININE (test code = 2214) 0.54 MG/DL eGFR AMER. (test code 139 ML/MIN/1.73 = 56683) eGFR NON- AMER. (test 120 ML/MIN/1.73 code = 62722) CALC BUN/CREAT (test code = 31 RATIO [...] A/G RATIO (test code = 1.3 RATIO 223) BILIRUBIN, TOTAL (test code = 0.2 MG/DL 2206) ALKALINE PHOSPHATASE (test 53 U/L code = 2204) AST (test code = 2218) 16 U/L ALT (test code = 2219) 22 U/L HEMOGLOBIN [id number] 00:00:00 Test Item Value Reference Range Interpretation Comments HEMOGLOBIN A1c (test code = 33009) 7.7 % HEMOGLOBIN [id number] 00:00:00 Test Item Value Reference Range Interpretation Comments HEMOGLOBIN A1c (test code = 40131) 7.7 % [id number] 00:00:00 Test Item Value Reference Range Interpretation Comments MAGNESIUM (test code = 2226) 1.4 MG/DL [id number] 00:00:00 Test Item Value Reference Range Interpretation Comments MAGNESIUM (test code = 2226) 1.4 MG/DL [id number] 00:00:00 Test Item Value Reference Range Interpretation Comments MAGNESIUM (test code = 2226) 1.4 MG/DL CBC W/AUTO [id number] 00:00:00 Test Item Value Reference Range Interpretation [...] code = 1015) 224 K/UL COMPREHENSIVE METABOLIC [id number] 00:00:00 Test Item Value Reference Range Interpretation Comments GLUCOSE (test code = 2217) 234 MG/DL BUN (test code = 2208) 17 MG/DL CREATININE (test code = 2214) 0.54 MG/DL eGFR AMER. (test code 139 ML/MIN/1.73 = 17045) eGFR NON- AMER. (test 120 ML/MIN/1.73 code = 05572) CALC BUN/CREAT (test code = 31 RATIO [...] code = 2219) 22 U/L CBC W/AUTO [id number] 00:00:00 Test Item Value Reference Range Interpretation [...] code = 1015) 224 K/UL COMPREHENSIVE METABOLIC [id number] 00:00:00 Test Item Value Reference Range Interpretation Comments GLUCOSE (test code = 2217) 234 MG/DL BUN (test code = 2208) 17 MG/DL CREATININE (test code = 2214) 0.54 MG/DL eGFR AMER. (test code 139 ML/MIN/1.73 = 91747) eGFR NON- AMER. (test 120 ML/MIN/1.73 code = 89220) CALC BUN/CREAT (test code = 31 RATIO [...] (test code = 2219) 22 U/L HEMOGLOBIN [id number] 00:00:00 Test Item Value Reference Range Interpretation Comments HEMOGLOBIN A1c (test code = 92222) 7.7 % HEMOGLOBIN [id number] 00:00:00 Test Item Value Reference Range Interpretation Comments HEMOGLOBIN A1c (test code = 03418) 7.7 % HEMOGLOBIN [id number] 00:00:00 Test Item Value Reference Range Interpretation Comments HEMOGLOBIN A1c (test code = 90750) 7.7 % THYROID II PROFILE (T3U, T4, T7, TSH)[id number] 00:00:00 Test Item Value Reference Range Interpretation Comments T3 UPTAKE (test code = 2817) 24.7 % T4 (THYROXINE) (test code = 3.7 UG/DL 2818) CALCULATED T7 (FTI) (test code = 0.91 2820) TSH (test code = 2821) <0.10 UIU/ML CBC W/AUTO [id number] 00:00:00 Test Item Value Reference Range Interpretation [...] code = 1015) 224 K/UL CBC W/AUTO [id number] 00:00:00 Test Item Value Reference Range Interpretation [...] code = 1015) 224 K/UL CBC W/AUTO [id number] 00:00:00 Test Item Value Reference Range Interpretation [...] TSH (test code = 2821) <0.10 UIU/ML [id number] 00:00:00 Test Item Value Reference Range Interpretation Comments MAGNESIUM (test code = 2226) 1.4 MG/DL [id number] 00:00:00 Test Item Value Reference Range Interpretation Comments MAGNESIUM (test code = 2226) 1.4 MG/DL [id number] 00:00:00 Test Item Value Reference Range Interpretation Comments MAGNESIUM (test code = 2226) 1.4 MG/DL COMPREHENSIVE METABOLIC [id number] 00:00:00 Test Item Value Reference Range Interpretation Comments GLUCOSE (test code = 2217) 234 MG/DL BUN (test code = 2208) 17 MG/DL CREATININE (test code = 2214) 0.54 MG/DL eGFR AMER. (test code 139 ML/MIN/1.73 = 38954) eGFR NON- AMER. (test 120 ML/MIN/1.73 code = 56686) CALC BUN/CREAT (test code = 31 RATIO [...] code = 2219) 22 U/L COMPREHENSIVE METABOLIC [id number] 00:00:00 Test Item Value Reference Range Interpretation Comments GLUCOSE (test code = 2217) 234 MG/DL BUN (test code = 2208) 17 MG/DL CREATININE (test code = 2214) 0.54 MG/DL eGFR AMER. (test code 139 ML/MIN/1.73 = 45821) eGFR NON- AMER. (test 120 ML/MIN/1.73 code = 31478) CALC BUN/CREAT (test code = 31 RATIO [...] (test code = 2219) 22 U/L HEMOGLOBIN [id number] 00:00:00 Test Item Value Reference Range Interpretation Comments HEMOGLOBIN A1c (test code = 50005) 7.7 % HEMOGLOBIN [id number] 00:00:00 Test Item Value Reference Range Interpretation Comments HEMOGLOBIN A1c (test code = 28273) 7.7 % HEMOGLOBIN [id number] 00:00:00 Test Item Value Reference Range Interpretation Comments HEMOGLOBIN A1c (test code = 52378) 7.7 % CBC W/AUTO [id number] 00:00:00 Test Item Value Reference Range Interpretation [...] code = 1015) 224 K/UL CBC W/AUTO [id number] 00:00:00 Test Item Value Reference Range Interpretation [...] code = 1015) 224 K/UL CBC W/AUTO [id number] 00:00:00 Test Item Value Reference Range Interpretation [...] TSH (test code = 2821) <0.10 UIU/ML [id number] 00:00:00 Test Item Value Reference Range Interpretation Comments MAGNESIUM (test code = 2226) 1.4 MG/DL [id number] 00:00:00 Test Item Value Reference Range Interpretation Comments MAGNESIUM (test code = 2226) 1.4 MG/DL [id number] 00:00:00 Test Item Value Reference Range Interpretation Comments MAGNESIUM (test code = 2226) 1.4 MG/DL COMPREHENSIVE METABOLIC [id number] 00:00:00 Test Item Value Reference Range Interpretation Comments GLUCOSE (test code = 2217) 234 MG/DL BUN (test code = 2208) 17 MG/DL CREATININE (test code = 2214) 0.54 MG/DL eGFR AMER. (test code 139 ML/MIN/1.73 = 47540) eGFR NON- AMER. (test 120 ML/MIN/1.73 code = 22595) CALC BUN/CREAT (test code = 31 RATIO [...] code = 2219) 22 U/L COMPREHENSIVE METABOLIC [id number] 00:00:00 Test Item Value Reference Range Interpretation Comments GLUCOSE (test code = 2217) 234 MG/DL BUN (test code = 2208) 17 MG/DL CREATININE (test code = 2214) 0.54 MG/DL eGFR AMER. (test code 139 ML/MIN/1.73 = 85099) eGFR NON- AMER. (test 120 ML/MIN/1.73 code = 03565) CALC BUN/CREAT (test code = 31 RATIO [...] (test code = 2219) 22 U/L HEMOGLOBIN [id number] 00:00:00 Test Item Value Reference Range Interpretation Comments HEMOGLOBIN A1c (test code = 27975) 7.7 % HEMOGLOBIN [id number] 00:00:00 Test Item Value Reference Range Interpretation Comments HEMOGLOBIN A1c (test code = 18299) 7.7 % HEMOGLOBIN [id number] 00:00:00 Test Item Value Reference Range Interpretation Comments HEMOGLOBIN A1c (test code = 79577) 7.7 % CBC W/AUTO [id number] 00:00:00 Test Item Value Reference Range Interpretation [...] code = 1015) 224 K/UL CBC W/AUTO [id number] 00:00:00 Test Item Value Reference Range Interpretation [...] code = 1015) 224 K/UL CBC W/AUTO [id number] 00:00:00 Test Item Value Reference Range Interpretation [...] <0.10 UIU/ML MARKO (ANTI-NUCLEAR AB) WITH REFLEX [id number] 00:00:00 Test Item Value Reference Range Interpretation Comments ANTI-NUCLEAR ANTIBODIES (test code = NEGATIVE 3506) MARKO (ANTI-NUCLEAR AB) WITH REFLEX [id number] 00:00:00 Test Item Value Reference Range Interpretation Comments ANTI-NUCLEAR ANTIBODIES (test code = NEGATIVE 3506) DHEA [id number] 00:00:00 Test Item Value Reference Range Interpretation Comments DHEA SULFATE (test code = 4225) 77 UG/DL DHEA [id number] 00:00:00 Test Item Value Reference Range Interpretation Comments DHEA SULFATE (test code = 4225) 77 UG/DL MARKO (ANTI-NUCLEAR AB) WITH REFLEX [id number] 00:00:00 Test Item Value Reference Range Interpretation Comments ANTI-NUCLEAR ANTIBODIES (test code = NEGATIVE 3506) MARKO (ANTI-NUCLEAR AB) WITH REFLEX [id number] 00:00:00 Test Item Value Reference Range Interpretation Comments ANTI-NUCLEAR ANTIBODIES (test code = NEGATIVE 3506) DHEA [id number] 00:00:00 Test Item Value Reference Range Interpretation Comments DHEA SULFATE (test code = 4225) 77 UG/DL DHEA [id number] 00:00:00 Test Item Value Reference Range Interpretation Comments DHEA SULFATE (test code = 4225) 77 UG/DL MARKO (ANTI-NUCLEAR AB) WITH REFLEX [id number] 00:00:00 Test Item Value Reference Range Interpretation Comments ANTI-NUCLEAR ANTIBODIES (test code = NEGATIVE 3506) MARKO (ANTI-NUCLEAR AB) WITH REFLEX [id number] 00:00:00 Test Item Value Reference Range Interpretation Comments ANTI-NUCLEAR ANTIBODIES (test code = NEGATIVE 3506) DHEA [id number] 00:00:00 Test Item Value Reference Range Interpretation Comments DHEA SULFATE (test code = 4225) 77 UG/DL DHEA [id number] 00:00:00 Test Item Value Reference Range Interpretation Comments DHEA SULFATE (test code = 4225) 77 UG/DL MARKO (ANTI-NUCLEAR AB) WITH REFLEX [id number] 00:00:00 Test Item Value Reference Range Interpretation Comments ANTI-NUCLEAR ANTIBODIES (test code = NEGATIVE 3506) MARKO (ANTI-NUCLEAR AB) WITH REFLEX [id number] 00:00:00 Test Item Value Reference Range Interpretation Comments ANTI-NUCLEAR ANTIBODIES (test code = NEGATIVE 3506) DHEA [id number] 00:00:00 Test Item Value Reference Range Interpretation Comments DHEA SULFATE (test code = 4225) 77 UG/DL DHEA [id number] 00:00:00 Test Item Value Reference Range Interpretation Comments DHEA SULFATE (test code = 4225) 77 UG/DL MARKO (ANTI-NUCLEAR AB) WITH REFLEX [id number] 00:00:00 Test Item Value Reference Range Interpretation Comments ANTI-NUCLEAR ANTIBODIES (test code = NEGATIVE 3506) MARKO (ANTI-NUCLEAR AB) WITH REFLEX [id number] 00:00:00 Test Item Value Reference Range Interpretation Comments ANTI-NUCLEAR ANTIBODIES (test code = NEGATIVE 3506) DHEA [id number] 00:00:00 Test Item Value Reference Range Interpretation Comments DHEA SULFATE (test code = 4225) 77 UG/DL DHEA [id number] 00:00:00 Test Item Value Reference Range Interpretation Comments DHEA SULFATE (test code = 4225) 77 UG/DL MARKO (ANTI-NUCLEAR AB) WITH REFLEX [id number] 00:00:00 Test Item Value Reference Range Interpretation Comments ANTI-NUCLEAR ANTIBODIES (test code = NEGATIVE 3506) MARKO (ANTI-NUCLEAR AB) WITH REFLEX [id number] 00:00:00 Test Item Value Reference Range Interpretation Comments ANTI-NUCLEAR ANTIBODIES (test code = NEGATIVE 3506) DHEA [id number] 00:00:00 Test Item Value Reference Range Interpretation Comments DHEA SULFATE (test code = 4225) 77 UG/DL DHEA [id number] 00:00:00 Test Item Value Reference Range Interpretation Comments DHEA SULFATE (test code = 4225) 77 UG/DL MARKO (ANTI-NUCLEAR AB) WITH REFLEX [id number] 00:00:00 Test Item Value Reference Range Interpretation Comments ANTI-NUCLEAR ANTIBODIES (test code = NEGATIVE 3506) MARKO (ANTI-NUCLEAR AB) WITH REFLEX [id number] 00:00:00 Test Item Value Reference Range Interpretation Comments ANTI-NUCLEAR ANTIBODIES (test code = NEGATIVE 3506) DHEA [id number] 00:00:00 Test Item Value Reference Range Interpretation Comments DHEA SULFATE (test code = 4225) 77 UG/DL DHEA [id number] 00:00:00 Test Item Value Reference Range Interpretation Comments DHEA SULFATE (test code = 4225) 77 UG/DL MARKO (ANTI-NUCLEAR AB) WITH REFLEX [id number] 00:00:00 Test Item Value Reference Range Interpretation Comments ANTI-NUCLEAR ANTIBODIES (test code = NEGATIVE 3506) MARKO (ANTI-NUCLEAR AB) WITH REFLEX [id number] 00:00:00 Test Item Value Reference Range Interpretation Comments ANTI-NUCLEAR ANTIBODIES (test code = NEGATIVE 3506) MARKO (ANTI-NUCLEAR AB) WITH REFLEX [id number] 00:00:00 Test Item Value Reference Range Interpretation Comments ANTI-NUCLEAR ANTIBODIES (test code = NEGATIVE 3506) DHEA [id number] 00:00:00 Test Item Value Reference Range Interpretation Comments DHEA SULFATE (test code = 4225) 77 UG/DL DHEA [id number] 00:00:00 Test Item Value Reference Range Interpretation Comments DHEA SULFATE (test code = 4225) 77 UG/DL DHEA [id number] 00:00:00 Test Item Value Reference Range Interpretation Comments DHEA SULFATE (test code = 4225) 77 UG/DL MARKO (ANTI-NUCLEAR AB) WITH REFLEX [id number] 00:00:00 Test Item Value Reference Range Interpretation Comments ANTI-NUCLEAR ANTIBODIES (test code = NEGATIVE 3506) MARKO (ANTI-NUCLEAR AB) WITH REFLEX [id number] 00:00:00 Test Item Value Reference Range Interpretation Comments ANTI-NUCLEAR ANTIBODIES (test code = NEGATIVE 3506) DHEA [id number] 00:00:00 Test Item Value Reference Range Interpretation Comments DHEA SULFATE (test code = 4225) 77 UG/DL DHEA [id number] 00:00:00 Test Item Value Reference Range Interpretation Comments DHEA SULFATE (test code = 4225) 77 UG/DL MARKO (ANTI-NUCLEAR AB) WITH REFLEX [id number] 00:00:00 Test Item Value Reference Range Interpretation Comments ANTI-NUCLEAR ANTIBODIES (test code = NEGATIVE 3506) MARKO (ANTI-NUCLEAR AB) WITH REFLEX [id number] 00:00:00 Test Item Value Reference Range Interpretation Comments ANTI-NUCLEAR ANTIBODIES (test code = NEGATIVE 3506) DHEA [id number] 00:00:00 Test Item Value Reference Range Interpretation Comments DHEA SULFATE (test code = 4225) 77 UG/DL DHEA [id number] 00:00:00 Test Item Value Reference Range Interpretation Comments DHEA SULFATE (test code = 4225) 77 UG/DL VITAMIN D,1,32-[id number] 00:00:00 Test Item Value Reference Range Interpretation Comments VITAMIN D,1,25-DIHYDROXY (test 11.3 PG/ML code = 4960) VITAMIN D,1,34-[id number] 00:00:00 Test Item Value Reference Range Interpretation Comments VITAMIN D,1,25-DIHYDROXY (test 11.3 PG/ML code = 4960) VITAMIN B 12 AND FOLIC [id number] 00:00:00 Test Item Value Reference Range Interpretation Comments VITAMIN B-12 (test code = 2840) 925 PG/ML FOLIC ACID (test code = 2695) >24.0 NG/ML VITAMIN B 12 AND FOLIC [id number] 00:00:00 Test Item Value Reference Range Interpretation [...] (test code = 2821) 0.4 UIU/ML LIPID [id number] 00:00:00 Test Item Value Reference Range Interpretation Comments CHOLESTEROL (test code = 2210) 172 MG/DL TRIGLYCERIDES (test code = 2232) 136 MG/DL HDL CHOLESTEROL (test code = 2220) 44 MG/DL CALC LDL CHOL (test code = 2237) 101 MG/DL RISK RATIO LDL/HDL (test code = 2.29 RATIO 2238) LIPID [id number] 00:00:00 Test Item Value Reference Range Interpretation Comments CHOLESTEROL (test code = 2210) 172 MG/DL TRIGLYCERIDES (test code = 2232) 136 MG/DL HDL CHOLESTEROL (test code = 2220) 44 MG/DL CALC LDL CHOL (test code = 2237) 101 MG/DL RISK RATIO LDL/HDL (test code = 2.29 RATIO 2238) [id number] 00:00:00 Test Item Value Reference Range Interpretation Comments TESTOSTERONE (test code = 2830) <12 NG/DL TESTOSTERONE REF RANGE (test code = (NOTE) 96721) [id number] 00:00:00 Test Item Value Reference Range Interpretation Comments TESTOSTERONE (test code = 2830) <12 NG/DL TESTOSTERONE REF RANGE (test code = (NOTE) 55463) [id number] 00:00:00 Test Item Value Reference Range Interpretation Comments PROLACTIN (test code = 2800) 5.8 NG/ML [id number] 00:00:00 Test Item Value Reference Range Interpretation Comments PROLACTIN (test code = 2800) 5.8 NG/ML FSH + LH [id number] 00:00:00 Test Item Value Reference Range Interpretation Comments FOLLICLE STIM HORMONE (test code = 8.9 MIU/ML 2700) LUTEINIZING HORMONE (test code = 6.5 MIU/ML 2776) FSH + LH [id number] 00:00:00 Test Item Value Reference Range Interpretation Comments FOLLICLE STIM HORMONE (test code = 8.9 MIU/ML 2700) LUTEINIZING HORMONE (test code = 6.5 MIU/ML 2776) VITAMIN D,1,44-[id number] 00:00:00 Test Item Value Reference Range Interpretation Comments VITAMIN D,1,25-DIHYDROXY (test 11.3 PG/ML code = 4960) VITAMIN D,1,43-[id number] 00:00:00 Test Item Value Reference Range Interpretation Comments VITAMIN D,1,25-DIHYDROXY (test 11.3 PG/ML code = 4960) VITAMIN B 12 AND FOLIC [id number] 00:00:00 Test Item Value Reference Range Interpretation Comments VITAMIN B-12 (test code = 2840) 925 PG/ML FOLIC ACID (test code = 2695) >24.0 NG/ML VITAMIN B 12 AND FOLIC [id number] 00:00:00 Test Item Value Reference Range Interpretation [...] (test code = 2821) 0.4 UIU/ML LIPID [id number] 00:00:00 Test Item Value Reference Range Interpretation Comments CHOLESTEROL (test code = 2210) 172 MG/DL TRIGLYCERIDES (test code = 2232) 136 MG/DL HDL CHOLESTEROL (test code = 2220) 44 MG/DL CALC LDL CHOL (test code = 2237) 101 MG/DL RISK RATIO LDL/HDL (test code = 2.29 RATIO 2238) LIPID [id number] 00:00:00 Test Item Value Reference Range Interpretation Comments CHOLESTEROL (test code = 2210) 172 MG/DL TRIGLYCERIDES (test code = 2232) 136 MG/DL HDL CHOLESTEROL (test code = 2220) 44 MG/DL CALC LDL CHOL (test code = 2237) 101 MG/DL RISK RATIO LDL/HDL (test code = 2.29 RATIO 2238) [id number] 00:00:00 Test Item Value Reference Range Interpretation Comments TESTOSTERONE (test code = 2830) <12 NG/DL TESTOSTERONE REF RANGE (test code = (NOTE) 88928) [id number] 00:00:00 Test Item Value Reference Range Interpretation Comments TESTOSTERONE (test code = 2830) <12 NG/DL TESTOSTERONE REF RANGE (test code = (NOTE) 53214) [id number] 00:00:00 Test Item Value Reference Range Interpretation Comments PROLACTIN (test code = 2800) 5.8 NG/ML [id number] 00:00:00 Test Item Value Reference Range Interpretation Comments PROLACTIN (test code = 2800) 5.8 NG/ML FSH + LH [id number] 00:00:00 Test Item Value Reference Range Interpretation Comments FOLLICLE STIM HORMONE (test code = 8.9 MIU/ML 2700) LUTEINIZING HORMONE (test code = 6.5 MIU/ML 2776) FSH + LH [id number] 00:00:00 Test Item Value Reference Range Interpretation Comments FOLLICLE STIM HORMONE (test code = 8.9 MIU/ML 2700) LUTEINIZING HORMONE (test code = 6.5 MIU/ML 2776) VITAMIN D,1,87-[id number] 00:00:00 Test Item Value Reference Range Interpretation Comments VITAMIN D,1,25-DIHYDROXY (test 11.3 PG/ML code = 4960) VITAMIN D,1,80-[id number] 00:00:00 Test Item Value Reference Range Interpretation Comments VITAMIN D,1,25-DIHYDROXY (test 11.3 PG/ML code = 4960) VITAMIN B 12 AND FOLIC [id number] 00:00:00 Test Item Value Reference Range Interpretation Comments VITAMIN B-12 (test code = 2840) 925 PG/ML FOLIC ACID (test code = 2695) >24.0 NG/ML VITAMIN B 12 AND FOLIC [id number] 00:00:00 Test Item Value Reference Range Interpretation [...] (test code = 2821) 0.4 UIU/ML LIPID [id number] 00:00:00 Test Item Value Reference Range Interpretation Comments CHOLESTEROL (test code = 2210) 172 MG/DL TRIGLYCERIDES (test code = 2232) 136 MG/DL HDL CHOLESTEROL (test code = 2220) 44 MG/DL CALC LDL CHOL (test code = 2237) 101 MG/DL RISK RATIO LDL/HDL (test code = 2.29 RATIO 2238) LIPID [id number] 00:00:00 Test Item Value Reference Range Interpretation Comments CHOLESTEROL (test code = 2210) 172 MG/DL TRIGLYCERIDES (test code = 2232) 136 MG/DL HDL CHOLESTEROL (test code = 2220) 44 MG/DL CALC LDL CHOL (test code = 2237) 101 MG/DL RISK RATIO LDL/HDL (test code = 2.29 RATIO 2238) [id number] 00:00:00 Test Item Value Reference Range Interpretation Comments TESTOSTERONE (test code = 2830) <12 NG/DL TESTOSTERONE REF RANGE (test code = (NOTE) 13436) [id number] 00:00:00 Test Item Value Reference Range Interpretation Comments TESTOSTERONE (test code = 2830) <12 NG/DL TESTOSTERONE REF RANGE (test code = (NOTE) 11170) [id number] 00:00:00 Test Item Value Reference Range Interpretation Comments PROLACTIN (test code = 2800) 5.8 NG/ML [id number] 00:00:00 Test Item Value Reference Range Interpretation Comments PROLACTIN (test code = 2800) 5.8 NG/ML FSH + LH [id number] 00:00:00 Test Item Value Reference Range Interpretation Comments FOLLICLE STIM HORMONE (test code = 8.9 MIU/ML 2700) LUTEINIZING HORMONE (test code = 6.5 MIU/ML 2776) FSH + LH [id number] 00:00:00 Test Item Value Reference Range Interpretation Comments FOLLICLE STIM HORMONE (test code = 8.9 MIU/ML 2700) LUTEINIZING HORMONE (test code = 6.5 MIU/ML 2776) VITAMIN D,1,16-[id number] 00:00:00 Test Item Value Reference Range Interpretation Comments VITAMIN D,1,25-DIHYDROXY (test 11.3 PG/ML code = 4960) VITAMIN D,1,44-[id number] 00:00:00 Test Item Value Reference Range Interpretation Comments VITAMIN D,1,25-DIHYDROXY (test 11.3 PG/ML code = 4960) VITAMIN B 12 AND FOLIC [id number] 00:00:00 Test Item Value Reference Range Interpretation Comments VITAMIN B-12 (test code = 2840) 925 PG/ML FOLIC ACID (test code = 2695) >24.0 NG/ML VITAMIN B 12 AND FOLIC [id number] 00:00:00 Test Item Value Reference Range Interpretation [...] (test code = 2821) 0.4 UIU/ML LIPID [id number] 00:00:00 Test Item Value Reference Range Interpretation Comments CHOLESTEROL (test code = 2210) 172 MG/DL TRIGLYCERIDES (test code = 2232) 136 MG/DL HDL CHOLESTEROL (test code = 2220) 44 MG/DL CALC LDL CHOL (test code = 2237) 101 MG/DL RISK RATIO LDL/HDL (test code = 2.29 RATIO 2238) LIPID [id number] 00:00:00 Test Item Value Reference Range Interpretation Comments CHOLESTEROL (test code = 2210) 172 MG/DL TRIGLYCERIDES (test code = 2232) 136 MG/DL HDL CHOLESTEROL (test code = 2220) 44 MG/DL CALC LDL CHOL (test code = 2237) 101 MG/DL RISK RATIO LDL/HDL (test code = 2.29 RATIO 2238) [id number] 00:00:00 Test Item Value Reference Range Interpretation Comments TESTOSTERONE (test code = 2830) <12 NG/DL TESTOSTERONE REF RANGE (test code = (NOTE) 45740) [id number] 00:00:00 Test Item Value Reference Range Interpretation Comments TESTOSTERONE (test code = 2830) <12 NG/DL TESTOSTERONE REF RANGE (test code = (NOTE) 85951) [id number] 00:00:00 Test Item Value Reference Range Interpretation Comments PROLACTIN (test code = 2800) 5.8 NG/ML [id number] 00:00:00 Test Item Value Reference Range Interpretation Comments PROLACTIN (test code = 2800) 5.8 NG/ML FSH + LH [id number] 00:00:00 Test Item Value Reference Range Interpretation Comments FOLLICLE STIM HORMONE (test code = 8.9 MIU/ML 2700) LUTEINIZING HORMONE (test code = 6.5 MIU/ML 2776) FSH + LH [id number] 00:00:00 Test Item Value Reference Range Interpretation Comments FOLLICLE STIM HORMONE (test code = 8.9 MIU/ML 2700) LUTEINIZING HORMONE (test code = 6.5 MIU/ML 2776) VITAMIN D,1,75-[id number] 00:00:00 Test Item Value Reference Range Interpretation Comments VITAMIN D,1,25-DIHYDROXY (test 11.3 PG/ML code = 4960) VITAMIN D,1,81-[id number] 00:00:00 Test Item Value Reference Range Interpretation Comments VITAMIN D,1,25-DIHYDROXY (test 11.3 PG/ML code = 4960) VITAMIN B 12 AND FOLIC [id number] 00:00:00 Test Item Value Reference Range Interpretation Comments VITAMIN B-12 (test code = 2840) 925 PG/ML FOLIC ACID (test code = 2695) >24.0 NG/ML VITAMIN B 12 AND FOLIC [id number] 00:00:00 Test Item Value Reference Range Interpretation [...] (test code = 2821) 0.4 UIU/ML LIPID [id number] 00:00:00 Test Item Value Reference Range Interpretation Comments CHOLESTEROL (test code = 2210) 172 MG/DL TRIGLYCERIDES (test code = 2232) 136 MG/DL HDL CHOLESTEROL (test code = 2220) 44 MG/DL CALC LDL CHOL (test code = 2237) 101 MG/DL RISK RATIO LDL/HDL (test code = 2.29 RATIO 2238) LIPID [id number] 00:00:00 Test Item Value Reference Range Interpretation Comments CHOLESTEROL (test code = 2210) 172 MG/DL TRIGLYCERIDES (test code = 2232) 136 MG/DL HDL CHOLESTEROL (test code = 2220) 44 MG/DL CALC LDL CHOL (test code = 2237) 101 MG/DL RISK RATIO LDL/HDL (test code = 2.29 RATIO 2238) [id number] 00:00:00 Test Item Value Reference Range Interpretation Comments TESTOSTERONE (test code = 2830) <12 NG/DL TESTOSTERONE REF RANGE (test code = (NOTE) 49568) [id number] 00:00:00 Test Item Value Reference Range Interpretation Comments TESTOSTERONE (test code = 2830) <12 NG/DL TESTOSTERONE REF RANGE (test code = (NOTE) 97634) [id number] 00:00:00 Test Item Value Reference Range Interpretation Comments PROLACTIN (test code = 2800) 5.8 NG/ML [id number] 00:00:00 Test Item Value Reference Range Interpretation Comments PROLACTIN (test code = 2800) 5.8 NG/ML FSH + LH [id number] 00:00:00 Test Item Value Reference Range Interpretation Comments FOLLICLE STIM HORMONE (test code = 8.9 MIU/ML 2700) LUTEINIZING HORMONE (test code = 6.5 MIU/ML 2776) FSH + LH [id number] 00:00:00 Test Item Value Reference Range Interpretation Comments FOLLICLE STIM HORMONE (test code = 8.9 MIU/ML 2700) LUTEINIZING HORMONE (test code = 6.5 MIU/ML 2776) VITAMIN D,1,27-[id number] 00:00:00 Test Item Value Reference Range Interpretation Comments VITAMIN D,1,25-DIHYDROXY (test 11.3 PG/ML code = 4960) VITAMIN D,1,58-[id number] 00:00:00 Test Item Value Reference Range Interpretation Comments VITAMIN D,1,25-DIHYDROXY (test 11.3 PG/ML code = 4960) VITAMIN B 12 AND FOLIC [id number] 00:00:00 Test Item Value Reference Range Interpretation Comments VITAMIN B-12 (test code = 2840) 925 PG/ML FOLIC ACID (test code = 2695) >24.0 NG/ML VITAMIN B 12 AND FOLIC [id number] 00:00:00 Test Item Value Reference Range Interpretation [...] (test code = 2821) 0.4 UIU/ML LIPID [id number] 00:00:00 Test Item Value Reference Range Interpretation Comments CHOLESTEROL (test code = 2210) 172 MG/DL TRIGLYCERIDES (test code = 2232) 136 MG/DL HDL CHOLESTEROL (test code = 2220) 44 MG/DL CALC LDL CHOL (test code = 2237) 101 MG/DL RISK RATIO LDL/HDL (test code = 2.29 RATIO 2238) LIPID [id number] 00:00:00 Test Item Value Reference Range Interpretation Comments CHOLESTEROL (test code = 2210) 172 MG/DL TRIGLYCERIDES (test code = 2232) 136 MG/DL HDL CHOLESTEROL (test code = 2220) 44 MG/DL CALC LDL CHOL (test code = 2237) 101 MG/DL RISK RATIO LDL/HDL (test code = 2.29 RATIO 2238) [id number] 00:00:00 Test Item Value Reference Range Interpretation Comments TESTOSTERONE (test code = 2830) <12 NG/DL TESTOSTERONE REF RANGE (test code = (NOTE) 51501) [id number] 00:00:00 Test Item Value Reference Range Interpretation Comments TESTOSTERONE (test code = 2830) <12 NG/DL TESTOSTERONE REF RANGE (test code = (NOTE) 56702) [id number] 00:00:00 Test Item Value Reference Range Interpretation Comments PROLACTIN (test code = 2800) 5.8 NG/ML [id number] 00:00:00 Test Item Value Reference Range Interpretation Comments PROLACTIN (test code = 2800) 5.8 NG/ML FSH + LH [id number] 00:00:00 Test Item Value Reference Range Interpretation Comments FOLLICLE STIM HORMONE (test code = 8.9 MIU/ML 2700) LUTEINIZING HORMONE (test code = 6.5 MIU/ML 2776) FSH + LH [id number] 00:00:00 Test Item Value Reference Range Interpretation Comments FOLLICLE STIM HORMONE (test code = 8.9 MIU/ML 2700) LUTEINIZING HORMONE (test code = 6.5 MIU/ML 2776) VITAMIN D,1,44-[id number] 00:00:00 Test Item Value Reference Range Interpretation Comments VITAMIN D,1,25-DIHYDROXY (test 11.3 PG/ML code = 4960) VITAMIN D,1,26-[id number] 00:00:00 Test Item Value Reference Range Interpretation Comments VITAMIN D,1,25-DIHYDROXY (test 11.3 PG/ML code = 4960) VITAMIN B 12 AND FOLIC [id number] 00:00:00 Test Item Value Reference Range Interpretation Comments VITAMIN B-12 (test code = 2840) 925 PG/ML FOLIC ACID (test code = 2695) >24.0 NG/ML VITAMIN B 12 AND FOLIC [id number] 00:00:00 Test Item Value Reference Range Interpretation [...] (test code = 2821) 0.4 UIU/ML LIPID [id number] 00:00:00 Test Item Value Reference Range Interpretation Comments CHOLESTEROL (test code = 2210) 172 MG/DL TRIGLYCERIDES (test code = 2232) 136 MG/DL HDL CHOLESTEROL (test code = 2220) 44 MG/DL CALC LDL CHOL (test code = 2237) 101 MG/DL RISK RATIO LDL/HDL (test code = 2.29 RATIO 2238) LIPID [id number] 00:00:00 Test Item Value Reference Range Interpretation Comments CHOLESTEROL (test code = 2210) 172 MG/DL TRIGLYCERIDES (test code = 2232) 136 MG/DL HDL CHOLESTEROL (test code = 2220) 44 MG/DL CALC LDL CHOL (test code = 2237) 101 MG/DL RISK RATIO LDL/HDL (test code = 2.29 RATIO 2238) [id number] 00:00:00 Test Item Value Reference Range Interpretation Comments TESTOSTERONE (test code = 2830) <12 NG/DL TESTOSTERONE REF RANGE (test code = (NOTE) 69130) [id number] 00:00:00 Test Item Value Reference Range Interpretation Comments TESTOSTERONE (test code = 2830) <12 NG/DL TESTOSTERONE REF RANGE (test code = (NOTE) 41405) [id number] 00:00:00 Test Item Value Reference Range Interpretation Comments PROLACTIN (test code = 2800) 5.8 NG/ML [id number] 00:00:00 Test Item Value Reference Range Interpretation Comments PROLACTIN (test code = 2800) 5.8 NG/ML FSH + LH [id number] 00:00:00 Test Item Value Reference Range Interpretation Comments FOLLICLE STIM HORMONE (test code = 8.9 MIU/ML 2700) LUTEINIZING HORMONE (test code = 6.5 MIU/ML 2776) FSH + LH [id number] 00:00:00 Test Item Value Reference Range Interpretation Comments FOLLICLE STIM HORMONE (test code = 8.9 MIU/ML 2700) LUTEINIZING HORMONE (test code = 6.5 MIU/ML 2776) VITAMIN D,1,36-[id number] 00:00:00 Test Item Value Reference Range Interpretation Comments VITAMIN D,1,25-DIHYDROXY (test 11.3 PG/ML code = 4960) VITAMIN B 12 AND FOLIC [id number] 00:00:00 Test Item Value Reference Range Interpretation [...] (test code = 2821) 0.4 UIU/ML VITAMIN D,1,37-[id number] 00:00:00 Test Item Value Reference Range Interpretation Comments VITAMIN D,1,25-DIHYDROXY (test 11.3 PG/ML code = 4960) VITAMIN D,1,51-[id number] 00:00:00 Test Item Value Reference Range Interpretation Comments VITAMIN D,1,25-DIHYDROXY (test 11.3 PG/ML code = 4960) VITAMIN B 12 AND FOLIC [id number] 00:00:00 Test Item Value Reference Range Interpretation Comments VITAMIN B-12 (test code = 2840) 925 PG/ML FOLIC ACID (test code = 2695) >24.0 NG/ML VITAMIN B 12 AND FOLIC [id number] 00:00:00 Test Item Value Reference Range Interpretation [...] (test code = 2821) 0.4 UIU/ML LIPID [id number] 00:00:00 Test Item Value Reference Range Interpretation Comments CHOLESTEROL (test code = 2210) 172 MG/DL TRIGLYCERIDES (test code = 2232) 136 MG/DL HDL CHOLESTEROL (test code = 2220) 44 MG/DL CALC LDL CHOL (test code = 2237) 101 MG/DL RISK RATIO LDL/HDL (test code = 2.29 RATIO 2238) LIPID [id number] 00:00:00 Test Item Value Reference Range Interpretation Comments CHOLESTEROL (test code = 2210) 172 MG/DL TRIGLYCERIDES (test code = 2232) 136 MG/DL HDL CHOLESTEROL (test code = 2220) 44 MG/DL CALC LDL CHOL (test code = 2237) 101 MG/DL RISK RATIO LDL/HDL (test code = 2.29 RATIO 2238) [id number] 00:00:00 Test Item Value Reference Range Interpretation Comments TESTOSTERONE (test code = 2830) <12 NG/DL TESTOSTERONE REF RANGE (test code = (NOTE) 80384) [id number] 00:00:00 Test Item Value Reference Range Interpretation Comments TESTOSTERONE (test code = 2830) <12 NG/DL TESTOSTERONE REF RANGE (test code = (NOTE) 05636) [id number] 00:00:00 Test Item Value Reference Range Interpretation Comments PROLACTIN (test code = 2800) 5.8 NG/ML [id number] 00:00:00 Test Item Value Reference Range Interpretation Comments PROLACTIN (test code = 2800) 5.8 NG/ML FSH + LH [id number] 00:00:00 Test Item Value Reference Range Interpretation Comments FOLLICLE STIM HORMONE (test code = 8.9 MIU/ML 2700) LUTEINIZING HORMONE (test code = 6.5 MIU/ML 2776) FSH + LH [id number] 00:00:00 Test Item Value Reference Range Interpretation Comments FOLLICLE STIM HORMONE (test code = 8.9 MIU/ML 2700) LUTEINIZING HORMONE (test code = 6.5 MIU/ML 2776) LIPID [id number] 00:00:00 Test Item Value Reference Range Interpretation Comments CHOLESTEROL (test code = 2210) 172 MG/DL TRIGLYCERIDES (test code = 2232) 136 MG/DL HDL CHOLESTEROL (test code = 2220) 44 MG/DL CALC LDL CHOL (test code = 2237) 101 MG/DL RISK RATIO LDL/HDL (test code = 2.29 RATIO 2238) [id number] 00:00:00 Test Item Value Reference Range Interpretation Comments TESTOSTERONE (test code = 2830) <12 NG/DL TESTOSTERONE REF RANGE (test code = (NOTE) 20097) [id number] 00:00:00 Test Item Value Reference Range Interpretation Comments PROLACTIN (test code = 2800) 5.8 NG/ML FSH + LH [id number] 00:00:00 Test Item Value Reference Range Interpretation Comments FOLLICLE STIM HORMONE (test code = 8.9 MIU/ML 2700) LUTEINIZING HORMONE (test code = 6.5 MIU/ML 2776) VITAMIN D,1,70-[id number] 00:00:00 Test Item Value Reference Range Interpretation Comments VITAMIN D,1,25-DIHYDROXY (test 11.3 PG/ML code = 4960) VITAMIN D,1,49-[id number] 00:00:00 Test Item Value Reference Range Interpretation Comments VITAMIN D,1,25-DIHYDROXY (test 11.3 PG/ML code = 4960) VITAMIN B 12 AND FOLIC [id number] 00:00:00 Test Item Value Reference Range Interpretation Comments VITAMIN B-12 (test code = 2840) 925 PG/ML FOLIC ACID (test code = 2695) >24.0 NG/ML VITAMIN B 12 AND FOLIC [id number] 00:00:00 Test Item Value Reference Range Interpretation [...] (test code = 2821) 0.4 UIU/ML LIPID [id number] 00:00:00 Test Item Value Reference Range Interpretation Comments CHOLESTEROL (test code = 2210) 172 MG/DL TRIGLYCERIDES (test code = 2232) 136 MG/DL HDL CHOLESTEROL (test code = 2220) 44 MG/DL CALC LDL CHOL (test code = 2237) 101 MG/DL RISK RATIO LDL/HDL (test code = 2.29 RATIO 2238) LIPID [id number] 00:00:00 Test Item Value Reference Range Interpretation Comments CHOLESTEROL (test code = 2210) 172 MG/DL TRIGLYCERIDES (test code = 2232) 136 MG/DL HDL CHOLESTEROL (test code = 2220) 44 MG/DL CALC LDL CHOL (test code = 2237) 101 MG/DL RISK RATIO LDL/HDL (test code = 2.29 RATIO 2238) [id number] 00:00:00 Test Item Value Reference Range Interpretation Comments TESTOSTERONE (test code = 2830) <12 NG/DL TESTOSTERONE REF RANGE (test code = (NOTE) 63542) [id number] 00:00:00 Test Item Value Reference Range Interpretation Comments TESTOSTERONE (test code = 2830) <12 NG/DL TESTOSTERONE REF RANGE (test code = (NOTE) 70836) [id number] 00:00:00 Test Item Value Reference Range Interpretation Comments PROLACTIN (test code = 2800) 5.8 NG/ML [id number] 00:00:00 Test Item Value Reference Range Interpretation Comments PROLACTIN (test code = 2800) 5.8 NG/ML FSH + LH [id number] 00:00:00 Test Item Value Reference Range Interpretation Comments FOLLICLE STIM HORMONE (test code = 8.9 MIU/ML 2700) LUTEINIZING HORMONE (test code = 6.5 MIU/ML 2776) FSH + LH [id number] 00:00:00 Test Item Value Reference Range Interpretation Comments FOLLICLE STIM HORMONE (test code = 8.9 MIU/ML 2700) LUTEINIZING HORMONE (test code = 6.5 MIU/ML 2776) VITAMIN D,1,40-[id number] 00:00:00 Test Item Value Reference Range Interpretation Comments VITAMIN D,1,25-DIHYDROXY (test 11.3 PG/ML code = 4960) VITAMIN D,1,03-[id number] 00:00:00 Test Item Value Reference Range Interpretation Comments VITAMIN D,1,25-DIHYDROXY (test 11.3 PG/ML code = 4960) VITAMIN B 12 AND FOLIC [id number] 00:00:00 Test Item Value Reference Range Interpretation Comments VITAMIN B-12 (test code = 2840) 925 PG/ML FOLIC ACID (test code = 2695) >24.0 NG/ML VITAMIN B 12 AND FOLIC [id number] 00:00:00 Test Item Value Reference Range Interpretation Comments VITAMIN B-12 (test code = 2840) 925 PG/ML FOLIC ACID (test code = 2695) >24.0 NG/ML THYROID II PROFILE (T3U, T4, T7, TSH)[id number] 00:00:00 Test Item Value Reference Range Interpretation Comments T3 UPTAKE (test code = 2817) 31.0 % T4 (THYROXINE) (test code = 2819) 7.4 UG/DL CALCULATED T7 (FTI) (test code = 2.29 5790) TSH (test code = 2821) 0.4 UIU/ML THYROID II PROFILE (T3U, T4, T7, TSH)2016-03-22 00:00:00 Test Item Value Reference Range Interpretation Comments T3 UPTAKE (test code = 2817) 31.0 % T4 (THYROXINE) (test code = 2819) 7.4 UG/DL CALCULATED T7 (FTI) (test code = 2.29 2820) TSH (test code = 2821) 0.4 UIU/ML LIPID [id number] 00:00:00 Test Item Value Reference Range Interpretation Comments CHOLESTEROL (test code = 2210) 172 MG/DL TRIGLYCERIDES (test code = 2232) 136 MG/DL HDL CHOLESTEROL (test code = 2220) 44 MG/DL CALC LDL CHOL (test code = 2237) 101 MG/DL RISK RATIO LDL/HDL (test code = 2.29 RATIO 2238) LIPID [id number] 00:00:00 Test Item Value Reference Range Interpretation Comments CHOLESTEROL (test code = 2210) 172 MG/DL TRIGLYCERIDES (test code = 2232) 136 MG/DL HDL CHOLESTEROL (test code = 2220) 44 MG/DL CALC LDL CHOL (test code = 2237) 101 MG/DL RISK RATIO LDL/HDL (test code = 2.29 RATIO 2238) [id number] 00:00:00 Test Item Value Reference Range Interpretation Comments TESTOSTERONE (test code = 2830) <12 NG/DL TESTOSTERONE REF RANGE (test code = (NOTE) 13562) [id number] 00:00:00 Test Item Value Reference Range Interpretation Comments TESTOSTERONE (test code = 2830) <12 NG/DL TESTOSTERONE REF RANGE (test code = (NOTE) 55544) [id number] 00:00:00 Test Item Value Reference Range Interpretation Comments PROLACTIN (test code = 2800) 5.8 NG/ML [id number] 00:00:00 Test Item Value Reference Range Interpretation Comments PROLACTIN (test code = 2800) 5.8 NG/ML FSH + LH [id number] 00:00:00 Test Item Value Reference Range Interpretation Comments FOLLICLE STIM HORMONE (test code = 8.9 MIU/ML 2700) LUTEINIZING HORMONE (test code = 6.5 MIU/ML 2776) FSH + LH [id number] 00:00:00 Test Item Value Reference Range Interpretation Comments FOLLICLE STIM HORMONE (test code = 8.9 MIU/ML 2700) LUTEINIZING HORMONE (test code = 6.5 MIU/ML 2776) SEDIMENTATION [id number] 00:00:00 Test Item Value Reference Range Interpretation Comments SEDIMENTATION RATE (test code = 35 MM/HOUR 1017) SEDIMENTATION [id number] 00:00:00 Test Item Value Reference Range Interpretation Comments SEDIMENTATION RATE (test code = 35 MM/HOUR 1017) CBC W/AUTO [id number] 00:00:00 Test Item Value Reference Range Interpretation [...] code = 1015) 246 K/UL CBC W/AUTO [id number] 00:00:00 Test Item Value Reference Range Interpretation [...] code = 1015) 246 K/UL CBC W/AUTO [id number] 00:00:00 Test Item Value Reference Range Interpretation [...] (test code = 1015) 246 K/UL HEMOGLOBIN [id number] 00:00:00 Test Item Value Reference Range Interpretation Comments HEMOGLOBIN A1c (test code = 52304) 6.2 % HEMOGLOBIN [id number] 00:00:00 Test Item Value Reference Range Interpretation Comments HEMOGLOBIN A1c (test code = 65271) 6.2 % HEMOGLOBIN [id number] 00:00:00 Test Item Value Reference Range Interpretation Comments HEMOGLOBIN A1c (test code = 53267) 6.2 % SEDIMENTATION [id number] 00:00:00 Test Item Value Reference Range Interpretation Comments SEDIMENTATION RATE (test code = 35 MM/HOUR 1017) SEDIMENTATION [id number] 00:00:00 Test Item Value Reference Range Interpretation Comments SEDIMENTATION RATE (test code = 35 MM/HOUR 1017) CBC W/AUTO [id number] 00:00:00 Test Item Value Reference Range Interpretation [...] code = 1015) 246 K/UL CBC W/AUTO [id number] 00:00:00 Test Item Value Reference Range Interpretation [...] code = 1015) 246 K/UL CBC W/AUTO [id number] 00:00:00 Test Item Value Reference Range Interpretation [...] (test code = 1015) 246 K/UL HEMOGLOBIN [id number] 00:00:00 Test Item Value Reference Range Interpretation Comments HEMOGLOBIN A1c (test code = 39910) 6.2 % HEMOGLOBIN [id number] 00:00:00 Test Item Value Reference Range Interpretation Comments HEMOGLOBIN A1c (test code = 99623) 6.2 % HEMOGLOBIN [id number] 00:00:00 Test Item Value Reference Range Interpretation Comments HEMOGLOBIN A1c (test code = 95854) 6.2 % SEDIMENTATION [id number] 00:00:00 Test Item Value Reference Range Interpretation Comments SEDIMENTATION RATE (test code = 35 MM/HOUR 1017) SEDIMENTATION [id number] 00:00:00 Test Item Value Reference Range Interpretation Comments SEDIMENTATION RATE (test code = 35 MM/HOUR 1017) CBC W/AUTO [id number] 00:00:00 Test Item Value Reference Range Interpretation [...] code = 1015) 246 K/UL CBC W/AUTO [id number] 00:00:00 Test Item Value Reference Range Interpretation [...] code = 1015) 246 K/UL CBC W/AUTO [id number] 00:00:00 Test Item Value Reference Range Interpretation [...] (test code = 1015) 246 K/UL HEMOGLOBIN [id number] 00:00:00 Test Item Value Reference Range Interpretation Comments HEMOGLOBIN A1c (test code = 94786) 6.2 % HEMOGLOBIN [id number] 00:00:00 Test Item Value Reference Range Interpretation Comments HEMOGLOBIN A1c (test code = 33530) 6.2 % HEMOGLOBIN [id number] 00:00:00 Test Item Value Reference Range Interpretation Comments HEMOGLOBIN A1c (test code = 78045) 6.2 % SEDIMENTATION [id number] 00:00:00 Test Item Value Reference Range Interpretation Comments SEDIMENTATION RATE (test code = 35 MM/HOUR 1017) SEDIMENTATION [id number] 00:00:00 Test Item Value Reference Range Interpretation Comments SEDIMENTATION RATE (test code = 35 MM/HOUR 1017) CBC W/AUTO [id number] 00:00:00 Test Item Value Reference Range Interpretation [...] code = 1015) 246 K/UL CBC W/AUTO [id number] 00:00:00 Test Item Value Reference Range Interpretation [...] code = 1015) 246 K/UL CBC W/AUTO [id number] 00:00:00 Test Item Value Reference Range Interpretation [...] (test code = 1015) 246 K/UL HEMOGLOBIN [id number] 00:00:00 Test Item Value Reference Range Interpretation Comments HEMOGLOBIN A1c (test code = 89027) 6.2 % HEMOGLOBIN [id number] 00:00:00 Test Item Value Reference Range Interpretation Comments HEMOGLOBIN A1c (test code = 62548) 6.2 % HEMOGLOBIN [id number] 00:00:00 Test Item Value Reference Range Interpretation Comments HEMOGLOBIN A1c (test code = 47608) 6.2 % SEDIMENTATION [id number] 00:00:00 Test Item Value Reference Range Interpretation Comments SEDIMENTATION RATE (test code = 35 MM/HOUR 1017) SEDIMENTATION [id number] 00:00:00 Test Item Value Reference Range Interpretation Comments SEDIMENTATION RATE (test code = 35 MM/HOUR 1017) CBC W/AUTO [id number] 00:00:00 Test Item Value Reference Range Interpretation [...] code = 1015) 246 K/UL CBC W/AUTO [id number] 00:00:00 Test Item Value Reference Range Interpretation [...] code = 1015) 246 K/UL CBC W/AUTO [id number] 00:00:00 Test Item Value Reference Range Interpretation [...] (test code = 1015) 246 K/UL HEMOGLOBIN [id number] 00:00:00 Test Item Value Reference Range Interpretation Comments HEMOGLOBIN A1c (test code = 75287) 6.2 % HEMOGLOBIN [id number] 00:00:00 Test Item Value Reference Range Interpretation Comments HEMOGLOBIN A1c (test code = 51931) 6.2 % HEMOGLOBIN [id number] 00:00:00 Test Item Value Reference Range Interpretation Comments HEMOGLOBIN A1c (test code = 30164) 6.2 % SEDIMENTATION [id number] 00:00:00 Test Item Value Reference Range Interpretation Comments SEDIMENTATION RATE (test code = 35 MM/HOUR 1017) SEDIMENTATION [id number] 00:00:00 Test Item Value Reference Range Interpretation Comments SEDIMENTATION RATE (test code = 35 MM/HOUR 1017) CBC W/AUTO [id number] 00:00:00 Test Item Value Reference Range Interpretation [...] code = 1015) 246 K/UL CBC W/AUTO [id number] 00:00:00 Test Item Value Reference Range Interpretation [...] code = 1015) 246 K/UL CBC W/AUTO [id number] 00:00:00 Test Item Value Reference Range Interpretation [...] (test code = 1015) 246 K/UL HEMOGLOBIN [id number] 00:00:00 Test Item Value Reference Range Interpretation Comments HEMOGLOBIN A1c (test code = 77536) 6.2 % HEMOGLOBIN [id number] 00:00:00 Test Item Value Reference Range Interpretation Comments HEMOGLOBIN A1c (test code = 17073) 6.2 % HEMOGLOBIN [id number] 00:00:00 Test Item Value Reference Range Interpretation Comments HEMOGLOBIN A1c (test code = 58580) 6.2 % SEDIMENTATION [id number] 00:00:00 Test Item Value Reference Range Interpretation Comments SEDIMENTATION RATE (test code = 35 MM/HOUR 1017) SEDIMENTATION [id number] 00:00:00 Test Item Value Reference Range Interpretation Comments SEDIMENTATION RATE (test code = 35 MM/HOUR 1017) CBC W/AUTO [id number] 00:00:00 Test Item Value Reference Range Interpretation [...] code = 1015) 246 K/UL CBC W/AUTO [id number] 00:00:00 Test Item Value Reference Range Interpretation [...] code = 1015) 246 K/UL CBC W/AUTO [id number] 00:00:00 Test Item Value Reference Range Interpretation [...] (test code = 1015) 246 K/UL HEMOGLOBIN [id number] 00:00:00 Test Item Value Reference Range Interpretation Comments HEMOGLOBIN A1c (test code = 14730) 6.2 % HEMOGLOBIN [id number] 00:00:00 Test Item Value Reference Range Interpretation Comments HEMOGLOBIN A1c (test code = 27180) 6.2 % HEMOGLOBIN [id number] 00:00:00 Test Item Value Reference Range Interpretation Comments HEMOGLOBIN A1c (test code = 03848) 6.2 % SEDIMENTATION [id number] 00:00:00 Test Item Value Reference Range Interpretation Comments SEDIMENTATION RATE (test code = 35 MM/HOUR 1017) SEDIMENTATION [id number] 00:00:00 Test Item Value Reference Range Interpretation Comments SEDIMENTATION RATE (test code = 35 MM/HOUR 1017) SEDIMENTATION [id number] 00:00:00 Test Item Value Reference Range Interpretation Comments SEDIMENTATION RATE (test code = 35 MM/HOUR 1017) CBC W/AUTO [id number] 00:00:00 Test Item Value Reference Range Interpretation [...] code = 1015) 246 K/UL CBC W/AUTO [id number] 00:00:00 Test Item Value Reference Range Interpretation [...] code = 1015) 246 K/UL CBC W/AUTO [id number] 00:00:00 Test Item Value Reference Range Interpretation [...] code = 1015) 246 K/UL CBC W/AUTO [id number] 00:00:00 Test Item Value Reference Range Interpretation [...] (test code = 1015) 246 K/UL HEMOGLOBIN [id number] 00:00:00 Test Item Value Reference Range Interpretation Comments HEMOGLOBIN A1c (test code = 58224) 6.2 % HEMOGLOBIN [id number] 00:00:00 Test Item Value Reference Range Interpretation Comments HEMOGLOBIN A1c (test code = 21789) 6.2 % HEMOGLOBIN [id number] 00:00:00 Test Item Value Reference Range Interpretation Comments HEMOGLOBIN A1c (test code = 97607) 6.2 % CBC W/AUTO [id number] 00:00:00 Test Item Value Reference Range Interpretation [...] (test code = 1015) 246 K/UL HEMOGLOBIN [id number] 00:00:00 Test Item Value Reference Range Interpretation Comments HEMOGLOBIN A1c (test code = 24347) 6.2 % HEMOGLOBIN [id number] 00:00:00 Test Item Value Reference Range Interpretation Comments HEMOGLOBIN A1c (test code = 98720) 6.2 % SEDIMENTATION [id number] 00:00:00 Test Item Value Reference Range Interpretation Comments SEDIMENTATION RATE (test code = 35 MM/HOUR 1017) SEDIMENTATION [id number] 00:00:00 Test Item Value Reference Range Interpretation Comments SEDIMENTATION RATE (test code = 35 MM/HOUR 1017) CBC W/AUTO [id number] 00:00:00 Test Item Value Reference Range Interpretation [...] code = 1015) 246 K/UL CBC W/AUTO [id number] 00:00:00 Test Item Value Reference Range Interpretation [...] code = 1015) 246 K/UL CBC W/AUTO [id number] 00:00:00 Test Item Value Reference Range Interpretation [...] (test code = 1015) 246 K/UL HEMOGLOBIN [id number] 00:00:00 Test Item Value Reference Range Interpretation Comments HEMOGLOBIN A1c (test code = 94966) 6.2 % HEMOGLOBIN [id number] 00:00:00 Test Item Value Reference Range Interpretation Comments HEMOGLOBIN A1c (test code = 41520) 6.2 % HEMOGLOBIN [id number] 00:00:00 Test Item Value Reference Range Interpretation Comments HEMOGLOBIN A1c (test code = 85435) 6.2 % SEDIMENTATION [id number] 00:00:00 Test Item Value Reference Range Interpretation Comments SEDIMENTATION RATE (test code = 35 MM/HOUR 1017) SEDIMENTATION [id number] 00:00:00 Test Item Value Reference Range Interpretation Comments SEDIMENTATION RATE (test code = 35 MM/HOUR 1017) CBC W/AUTO [id number] 00:00:00 Test Item Value Reference Range Interpretation [...] code = 1015) 246 K/UL CBC W/AUTO [id number] 00:00:00 Test Item Value Reference Range Interpretation [...] code = 1015) 246 K/UL CBC W/AUTO [id number] 00:00:00 Test Item Value Reference Range Interpretation [...] (test code = 1015) 246 K/UL HEMOGLOBIN [id number] 00:00:00 Test Item Value Reference Range Interpretation Comments HEMOGLOBIN A1c (test code = 61657) 6.2 % HEMOGLOBIN [id number] 00:00:00 Test Item Value Reference Range Interpretation Comments HEMOGLOBIN A1c (test code = 86285) 6.2 % HEMOGLOBIN [id number] 00:00:00 Test Item Value Reference Range Interpretation Comments HEMOGLOBIN A1c (test code = 72783) 6.2 % COMPREHENSIVE METABOLIC [id number] 00:00:00 Test Item Value Reference Range Interpretation Comments GLUCOSE (test code = 2217) 100 MG/DL BUN (test code = 2208) 10 MG/DL CREATININE (test code = 2214) 0.61 MG/DL eGFR AMER. (test code 134 ML/MIN/1.73 = 33506) eGFR NON- AMER. (test 116 ML/MIN/1.73 code = 63707) CALCULATED BUN/CREAT (test 16 RATIO code = [...] code = 2219) 16 U/L COMPREHENSIVE METABOLIC [id number] 00:00:00 Test Item Value Reference Range Interpretation Comments GLUCOSE (test code = 2217) 100 MG/DL BUN (test code = 2208) 10 MG/DL CREATININE (test code = 2214) 0.61 MG/DL eGFR AMER. (test code 134 ML/MIN/1.73 = 81788) eGFR NON- AMER. (test 116 ML/MIN/1.73 code = 06091) CALCULATED BUN/CREAT (test 16 RATIO code = [...] (test code = 2219) 16 U/L LIPID [id number] 00:00:00 Test Item Value Reference Range Interpretation Comments CHOLESTEROL (test code = 2210) 166 MG/DL TRIGLYCERIDES (test code = 2232) 72 MG/DL HDL CHOLESTEROL (test code = 2220) 47 MG/DL CALCULATED LDL CHOL (test code = 105 MG/DL 2237) RISK RATIO LDL/HDL (test code = 2.23 RATIO 2238) LIPID [id number] 00:00:00 Test Item Value Reference Range Interpretation Comments CHOLESTEROL (test code = 2210) 166 MG/DL TRIGLYCERIDES (test code = 2232) 72 MG/DL HDL CHOLESTEROL (test code = 2220) 47 MG/DL CALCULATED LDL CHOL (test code = 105 MG/DL 2237) RISK RATIO LDL/HDL (test code = 2.23 RATIO 2238) [id number] 00:00:00 Test Item Value Reference Range Interpretation Comments TSH (test code = 2821) 1.2 UIU/ML [id number] 00:00:00 Test Item Value Reference Range Interpretation Comments TSH (test code = 2821) 1.2 UIU/ML [id number] 00:00:00 Test Item Value Reference Range Interpretation Comments TSH (test code = 2821) 1.2 UIU/ML COMPREHENSIVE METABOLIC [id number] 00:00:00 Test Item Value Reference Range Interpretation Comments GLUCOSE (test code = 2217) 100 MG/DL BUN (test code = 2208) 10 MG/DL CREATININE (test code = 2214) 0.61 MG/DL eGFR AMER. (test code 134 ML/MIN/1.73 = 00218) eGFR NON- AMER. (test 116 ML/MIN/1.73 code = 08903) CALCULATED BUN/CREAT (test 16 RATIO code = [...] code = 2219) 16 U/L COMPREHENSIVE METABOLIC [id number] 00:00:00 Test Item Value Reference Range Interpretation Comments GLUCOSE (test code = 2217) 100 MG/DL BUN (test code = 2208) 10 MG/DL CREATININE (test code = 2214) 0.61 MG/DL eGFR AMER. (test code 134 ML/MIN/1.73 = 03181) eGFR NON- AMER. (test 116 ML/MIN/1.73 code = 17467) CALCULATED BUN/CREAT (test 16 RATIO code = [...] (test code = 2219) 16 U/L LIPID [id number] 00:00:00 Test Item Value Reference Range Interpretation Comments CHOLESTEROL (test code = 2210) 166 MG/DL TRIGLYCERIDES (test code = 2232) 72 MG/DL HDL CHOLESTEROL (test code = 2220) 47 MG/DL CALCULATED LDL CHOL (test code = 105 MG/DL 2237) RISK RATIO LDL/HDL (test code = 2.23 RATIO 2238) LIPID [id number] 00:00:00 Test Item Value Reference Range Interpretation Comments CHOLESTEROL (test code = 2210) 166 MG/DL TRIGLYCERIDES (test code = 2232) 72 MG/DL HDL CHOLESTEROL (test code = 2220) 47 MG/DL CALCULATED LDL CHOL (test code = 105 MG/DL 7) RISK RATIO LDL/HDL (test code = 2.23 RATIO 2238) [id number] 00:00:00 Test Item Value Reference Range Interpretation Comments TSH (test code = 2821) 1.2 UIU/ML [id number] 00:00:00 Test Item Value Reference Range Interpretation Comments TSH (test code = 2821) 1.2 UIU/ML [id number] 00:00:00 Test Item Value Reference Range Interpretation Comments TSH (test code = 2821) 1.2 UIU/ML COMPREHENSIVE METABOLIC [id number] 00:00:00 Test Item Value Reference Range Interpretation Comments GLUCOSE (test code = 2217) 100 MG/DL BUN (test code = 2208) 10 MG/DL CREATININE (test code = 2214) 0.61 MG/DL eGFR AMER. (test code 134 ML/MIN/1.73 = 50317) eGFR NON- AMER. (test 116 ML/MIN/1.73 code = 48600) CALCULATED BUN/CREAT (test 16 RATIO code = [...] code = 2219) 16 U/L COMPREHENSIVE METABOLIC [id number] 00:00:00 Test Item Value Reference Range Interpretation Comments GLUCOSE (test code = 2217) 100 MG/DL BUN (test code = 2208) 10 MG/DL CREATININE (test code = 2214) 0.61 MG/DL eGFR AMER. (test code 134 ML/MIN/1.73 = 11465) eGFR NON- AMER. (test 116 ML/MIN/1.73 code = 24667) CALCULATED BUN/CREAT (test 16 RATIO code = [...] (test code = 2219) 16 U/L LIPID [id number] 00:00:00 Test Item Value Reference Range Interpretation Comments CHOLESTEROL (test code = 2210) 166 MG/DL TRIGLYCERIDES (test code = 2232) 72 MG/DL HDL CHOLESTEROL (test code = 2220) 47 MG/DL CALCULATED LDL CHOL (test code = 105 MG/DL 2237) RISK RATIO LDL/HDL (test code = 2.23 RATIO 2238) LIPID [id number] 00:00:00 Test Item Value Reference Range Interpretation Comments CHOLESTEROL (test code = 2210) 166 MG/DL TRIGLYCERIDES (test code = 2232) 72 MG/DL HDL CHOLESTEROL (test code = 2220) 47 MG/DL CALCULATED LDL CHOL (test code = 105 MG/DL 2237) RISK RATIO LDL/HDL (test code = 2.23 RATIO 2238) [id number] 00:00:00 Test Item Value Reference Range Interpretation Comments TSH (test code = 2821) 1.2 UIU/ML [id number] 00:00:00 Test Item Value Reference Range Interpretation Comments TSH (test code = 2821) 1.2 UIU/ML [id number] 00:00:00 Test Item Value Reference Range Interpretation Comments TSH (test code = 2821) 1.2 UIU/ML COMPREHENSIVE METABOLIC [id number] 00:00:00 Test Item Value Reference Range Interpretation Comments GLUCOSE (test code = 2217) 100 MG/DL BUN (test code = 2208) 10 MG/DL CREATININE (test code = 2214) 0.61 MG/DL eGFR AMER. (test code 134 ML/MIN/1.73 = 97408) eGFR NON- AMER. (test 116 ML/MIN/1.73 code = 46309) CALCULATED BUN/CREAT (test 16 RATIO code = [...] code = 2219) 16 U/L COMPREHENSIVE METABOLIC [id number] 00:00:00 Test Item Value Reference Range Interpretation Comments GLUCOSE (test code = 2217) 100 MG/DL BUN (test code = 2208) 10 MG/DL CREATININE (test code = 2214) 0.61 MG/DL eGFR AMER. (test code 134 ML/MIN/1.73 = 53563) eGFR NON- AMER. (test 116 ML/MIN/1.73 code = 98432) CALCULATED BUN/CREAT (test 16 RATIO code = [...] (test code = 2219) 16 U/L LIPID [id number] 00:00:00 Test Item Value Reference Range Interpretation Comments CHOLESTEROL (test code = 2210) 166 MG/DL TRIGLYCERIDES (test code = 2232) 72 MG/DL HDL CHOLESTEROL (test code = 2220) 47 MG/DL CALCULATED LDL CHOL (test code = 105 MG/DL 2236) RISK RATIO LDL/HDL (test code = 2.23 RATIO 2238) LIPID [id number] 00:00:00 Test Item Value Reference Range Interpretation Comments CHOLESTEROL (test code = 2210) 166 MG/DL TRIGLYCERIDES (test code = 2232) 72 MG/DL HDL CHOLESTEROL (test code = 2220) 47 MG/DL CALCULATED LDL CHOL (test code = 105 MG/DL 2236) RISK RATIO LDL/HDL (test code = 2.23 RATIO 2238) [id number] 00:00:00 Test Item Value Reference Range Interpretation Comments TSH (test code = 2821) 1.2 UIU/ML [id number] 00:00:00 Test Item Value Reference Range Interpretation Comments TSH (test code = 2821) 1.2 UIU/ML [id number] 00:00:00 Test Item Value Reference Range Interpretation Comments TSH (test code = 2821) 1.2 UIU/ML COMPREHENSIVE METABOLIC [id number] 00:00:00 Test Item Value Reference Range Interpretation Comments GLUCOSE (test code = 2217) 100 MG/DL BUN (test code = 2208) 10 MG/DL CREATININE (test code = 2214) 0.61 MG/DL eGFR AMER. (test code 134 ML/MIN/1.73 = 81763) eGFR NON- AMER. (test 116 ML/MIN/1.73 code = 62988) CALCULATED BUN/CREAT (test 16 RATIO code = [...] code = 2219) 16 U/L COMPREHENSIVE METABOLIC [id number] 00:00:00 Test Item Value Reference Range Interpretation Comments GLUCOSE (test code = 2217) 100 MG/DL BUN (test code = 2208) 10 MG/DL CREATININE (test code = 2214) 0.61 MG/DL eGFR AMER. (test code 134 ML/MIN/1.73 = 75051) eGFR NON- AMER. (test 116 ML/MIN/1.73 code = 14351) CALCULATED BUN/CREAT (test 16 RATIO code = [...] (test code = 2219) 16 U/L LIPID [id number] 00:00:00 Test Item Value Reference Range Interpretation Comments CHOLESTEROL (test code = 2210) 166 MG/DL TRIGLYCERIDES (test code = 2232) 72 MG/DL HDL CHOLESTEROL (test code = 2220) 47 MG/DL CALCULATED LDL CHOL (test code = 105 MG/DL 2237) RISK RATIO LDL/HDL (test code = 2.23 RATIO 2238) LIPID [id number] 00:00:00 Test Item Value Reference Range Interpretation Comments CHOLESTEROL (test code = 2210) 166 MG/DL TRIGLYCERIDES (test code = 2232) 72 MG/DL HDL CHOLESTEROL (test code = 2220) 47 MG/DL CALCULATED LDL CHOL (test code = 105 MG/DL 2237) RISK RATIO LDL/HDL (test code = 2.23 RATIO 2238) [id number] 00:00:00 Test Item Value Reference Range Interpretation Comments TSH (test code = 2821) 1.2 UIU/ML [id number] 00:00:00 Test Item Value Reference Range Interpretation Comments TSH (test code = 2821) 1.2 UIU/ML [id number] 00:00:00 Test Item Value Reference Range Interpretation Comments TSH (test code = 2821) 1.2 UIU/ML COMPREHENSIVE METABOLIC [id number] 00:00:00 Test Item Value Reference Range Interpretation Comments GLUCOSE (test code = 2217) 100 MG/DL BUN (test code = 2208) 10 MG/DL CREATININE (test code = 2214) 0.61 MG/DL eGFR AMER. (test code 134 ML/MIN/1.73 = 61163) eGFR NON- AMER. (test 116 ML/MIN/1.73 code = 12027) CALCULATED BUN/CREAT (test 16 RATIO code = [...] code = 2219) 16 U/L COMPREHENSIVE METABOLIC [id number] 00:00:00 Test Item Value Reference Range Interpretation Comments GLUCOSE (test code = 2217) 100 MG/DL BUN (test code = 2208) 10 MG/DL CREATININE (test code = 2214) 0.61 MG/DL eGFR AMER. (test code 134 ML/MIN/1.73 = 68461) eGFR NON- AMER. (test 116 ML/MIN/1.73 code = 14301) CALCULATED BUN/CREAT (test 16 RATIO code = [...] (test code = 2219) 16 U/L LIPID [id number] 00:00:00 Test Item Value Reference Range Interpretation Comments CHOLESTEROL (test code = 2210) 166 MG/DL TRIGLYCERIDES (test code = 2232) 72 MG/DL HDL CHOLESTEROL (test code = 2220) 47 MG/DL CALCULATED LDL CHOL (test code = 105 MG/DL 2237) RISK RATIO LDL/HDL (test code = 2.23 RATIO 2238) LIPID [id number] 00:00:00 Test Item Value Reference Range Interpretation Comments CHOLESTEROL (test code = 2210) 166 MG/DL TRIGLYCERIDES (test code = 2232) 72 MG/DL HDL CHOLESTEROL (test code = 2220) 47 MG/DL CALCULATED LDL CHOL (test code = 105 MG/DL 2237) RISK RATIO LDL/HDL (test code = 2.23 RATIO 2238) [id number] 00:00:00 Test Item Value Reference Range Interpretation Comments TSH (test code = 2821) 1.2 UIU/ML [id number] 00:00:00 Test Item Value Reference Range Interpretation Comments TSH (test code = 2821) 1.2 UIU/ML [id number] 00:00:00 Test Item Value Reference Range Interpretation Comments TSH (test code = 2821) 1.2 UIU/ML COMPREHENSIVE METABOLIC [id number] 00:00:00 Test Item Value Reference Range Interpretation Comments GLUCOSE (test code = 2217) 100 MG/DL BUN (test code = 2208) 10 MG/DL CREATININE (test code = 2214) 0.61 MG/DL eGFR AMER. (test code 134 ML/MIN/1.73 = 88993) eGFR NON- AMER. (test 116 ML/MIN/1.73 code = 02997) CALCULATED BUN/CREAT (test 16 RATIO code = [...] code = 2219) 16 U/L COMPREHENSIVE METABOLIC [id number] 00:00:00 Test Item Value Reference Range Interpretation Comments GLUCOSE (test code = 2217) 100 MG/DL BUN (test code = 2208) 10 MG/DL CREATININE (test code = 2214) 0.61 MG/DL eGFR AMER. (test code 134 ML/MIN/1.73 = 97268) eGFR NON- AMER. (test 116 ML/MIN/1.73 code = 79259) CALCULATED BUN/CREAT (test 16 RATIO code = [...] code = 2219) 16 U/L COMPREHENSIVE METABOLIC [id number] 00:00:00 Test Item Value Reference Range Interpretation Comments GLUCOSE (test code = 2217) 100 MG/DL BUN (test code = 2208) 10 MG/DL CREATININE (test code = 2214) 0.61 MG/DL eGFR AMER. (test code 134 ML/MIN/1.73 = 03587) eGFR NON- AMER. (test 116 ML/MIN/1.73 code = 78003) CALCULATED BUN/CREAT (test 16 RATIO code = [...] (test code = 2219) 16 U/L LIPID [id number] 00:00:00 Test Item Value Reference Range Interpretation Comments CHOLESTEROL (test code = 2210) 166 MG/DL TRIGLYCERIDES (test code = 2232) 72 MG/DL HDL CHOLESTEROL (test code = 2220) 47 MG/DL CALCULATED LDL CHOL (test code = 105 MG/DL 2236) RISK RATIO LDL/HDL (test code = 2.23 RATIO 2238) LIPID [id number] 00:00:00 Test Item Value Reference Range Interpretation Comments CHOLESTEROL (test code = 2210) 166 MG/DL TRIGLYCERIDES (test code = 2232) 72 MG/DL HDL CHOLESTEROL (test code = 2220) 47 MG/DL CALCULATED LDL CHOL (test code = 105 MG/DL 2236) RISK RATIO LDL/HDL (test code = 2.23 RATIO 2238) [id number] 00:00:00 Test Item Value Reference Range Interpretation Comments TSH (test code = 2821) 1.2 UIU/ML [id number] 00:00:00 Test Item Value Reference Range Interpretation Comments TSH (test code = 2821) 1.2 UIU/ML [id number] 00:00:00 Test Item Value Reference Range Interpretation Comments TSH (test code = 2821) 1.2 UIU/ML LIPID [id number] 00:00:00 Test Item Value Reference Range Interpretation Comments CHOLESTEROL (test code = 2210) 166 MG/DL TRIGLYCERIDES (test code = 2232) 72 MG/DL HDL CHOLESTEROL (test code = 2220) 47 MG/DL CALCULATED LDL CHOL (test code = 105 MG/DL 2236) RISK RATIO LDL/HDL (test code = 2.23 RATIO 2237) COMPREHENSIVE METABOLIC [id number] 00:00:00 Test Item Value Reference Range Interpretation Comments GLUCOSE (test code = 2217) 100 MG/DL BUN (test code = 2208) 10 MG/DL CREATININE (test code = 2214) 0.61 MG/DL eGFR AMER. (test code 134 ML/MIN/1.73 = 41550) eGFR NON- AMER. (test 116 ML/MIN/1.73 code = 20389) CALCULATED BUN/CREAT (test 16 RATIO code = [...] code = 2219) 16 U/L COMPREHENSIVE METABOLIC [id number] 00:00:00 Test Item Value Reference Range Interpretation Comments GLUCOSE (test code = 2217) 100 MG/DL BUN (test code = 2208) 10 MG/DL CREATININE (test code = 2214) 0.61 MG/DL eGFR AMER. (test code 134 ML/MIN/1.73 = 77412) eGFR NON- AMER. (test 116 ML/MIN/1.73 code = 85974) CALCULATED BUN/CREAT (test 16 RATIO code = [...] (test code = 2219) 16 U/L LIPID [id number] 00:00:00 Test Item Value Reference Range Interpretation Comments CHOLESTEROL (test code = 2210) 166 MG/DL TRIGLYCERIDES (test code = 2232) 72 MG/DL HDL CHOLESTEROL (test code = 2220) 47 MG/DL CALCULATED LDL CHOL (test code = 105 MG/DL 2236) RISK RATIO LDL/HDL (test code = 2.23 RATIO 2238) LIPID [id number] 00:00:00 Test Item Value Reference Range Interpretation Comments CHOLESTEROL (test code = 2210) 166 MG/DL TRIGLYCERIDES (test code = 2232) 72 MG/DL HDL CHOLESTEROL (test code = 2220) 47 MG/DL CALCULATED LDL CHOL (test code = 105 MG/DL 7) RISK RATIO LDL/HDL (test code = 2.23 RATIO 2238) [id number] 00:00:00 Test Item Value Reference Range Interpretation Comments TSH (test code = 2821) 1.2 UIU/ML [id number] 00:00:00 Test Item Value Reference Range Interpretation Comments TSH (test code = 2821) 1.2 UIU/ML [id number] 00:00:00 Test Item Value Reference Range Interpretation Comments TSH (test code = 2821) 1.2 UIU/ML [id number] 00:00:00 Test Item Value Reference Range Interpretation Comments TSH (test code = 2821) 1.2 UIU/ML [id number] 00:00:00 Test Item Value Reference Range Interpretation Comments TSH (test code = 2821) 1.2 UIU/ML COMPREHENSIVE METABOLIC [id number] 00:00:00 Test Item Value Reference Range Interpretation Comments GLUCOSE (test code = 2217) 100 MG/DL BUN (test code = 2208) 10 MG/DL CREATININE (test code = 2214) 0.61 MG/DL eGFR AMER. (test code 134 ML/MIN/1.73 = 52777) eGFR NON- AMER. (test 116 ML/MIN/1.73 code = 07737) CALCULATED BUN/CREAT (test 16 RATIO code = [...] code = 2219) 16 U/L COMPREHENSIVE METABOLIC [id number] 00:00:00 Test Item Value Reference Range Interpretation Comments GLUCOSE (test code = 2217) 100 MG/DL BUN (test code = 2208) 10 MG/DL CREATININE (test code = 2214) 0.61 MG/DL eGFR AMER. (test code 134 ML/MIN/1.73 = 64408) eGFR NON- AMER. (test 116 ML/MIN/1.73 code = 89533) CALCULATED BUN/CREAT (test 16 RATIO code = [...] (test code = 2219) 16 U/L LIPID [id number] 00:00:00 Test Item Value Reference Range Interpretation Comments CHOLESTEROL (test code = 2210) 166 MG/DL TRIGLYCERIDES (test code = 2232) 72 MG/DL HDL CHOLESTEROL (test code = 2220) 47 MG/DL CALCULATED LDL CHOL (test code = 105 MG/DL 2236) RISK RATIO LDL/HDL (test code = 2.23 RATIO 2238) LIPID [id number] 00:00:00 Test Item Value Reference Range Interpretation Comments CHOLESTEROL (test code = 2210) 166 MG/DL TRIGLYCERIDES (test code = 2232) 72 MG/DL HDL CHOLESTEROL (test code = 2220) 47 MG/DL CALCULATED LDL CHOL (test code = 105 MG/DL 7) RISK RATIO LDL/HDL (test code = 2.23 RATIO 2238) [id number] 00:00:00 Test Item Value Reference Range Interpretation Comments TSH (test code = 2821) 1.2 UIU/ML [id number] 00:00:00 Test Item Value Reference Range Interpretation Comments TSH (test code = 2821) 1.2 UIU/ML [id number] 00:00:00 Test Item Value Reference Range Interpretation Comments TSH (test code = 2821) 1.2 UIU/ML COMPREHENSIVE METABOLIC [id number] 00:00:00 Test Item Value Reference Range Interpretation Comments GLUCOSE (test code = 2217) 100 MG/DL BUN (test code = 2208) 10 MG/DL CREATININE (test code = 2214) 0.61 MG/DL eGFR AMER. (test code 134 ML/MIN/1.73 = 88108) eGFR NON- AMER. (test 116 ML/MIN/1.73 code = 82104) CALCULATED BUN/CREAT (test 16 RATIO code = [...] code = 2219) 16 U/L COMPREHENSIVE METABOLIC [id number] 00:00:00 Test Item Value Reference Range Interpretation Comments GLUCOSE (test code = 2217) 100 MG/DL BUN (test code = 2208) 10 MG/DL CREATININE (test code = 2214) 0.61 MG/DL eGFR AMER. (test code 134 ML/MIN/1.73 = 53377) eGFR NON- AMER. (test 116 ML/MIN/1.73 code = 02447) CALCULATED BUN/CREAT (test 16 RATIO code = [...] (test code = 2219) 16 U/L LIPID [id number] 00:00:00 Test Item Value Reference Range Interpretation Comments CHOLESTEROL (test code = 2210) 166 MG/DL TRIGLYCERIDES (test code = 2232) 72 MG/DL HDL CHOLESTEROL (test code = 2220) 47 MG/DL CALCULATED LDL CHOL (test code = 105 MG/DL 2237) RISK RATIO LDL/HDL (test code = 2.23 RATIO 2238) LIPID [id number] 00:00:00 Test Item Value Reference Range Interpretation Comments CHOLESTEROL (test code = 2210) 166 MG/DL TRIGLYCERIDES (test code = 2232) 72 MG/DL HDL CHOLESTEROL (test code = 2220) 47 MG/DL CALCULATED LDL CHOL (test code = 105 MG/DL 2237) RISK RATIO LDL/HDL (test code = 2.23 RATIO 2238) [id number] 00:00:00 Test Item Value Reference Range Interpretation Comments TSH (test code = 2821) 1.2 UIU/ML [id number] 00:00:00 Test Item Value Reference Range Interpretation Comments TSH (test code = 2821) 1.2 UIU/ML [id number] 00:00:00 Test Item Value Reference Range Interpretation Comments TSH (test code = 2821) 1.2 UIU/ML CBC W/AUTO [id number] 00:00:00 Test Item Value Reference Range Interpretation [...] code = 1015) 243 K/UL CBC W/AUTO [id number] 00:00:00 Test Item Value Reference Range Interpretation [...] code = 1015) 243 K/UL CBC W/AUTO [id number] 00:00:00 Test Item Value Reference Range Interpretation [...] (test code = 1015) 243 K/UL HEMOGLOBIN [id number] 00:00:00 Test Item Value Reference Range Interpretation Comments HEMOGLOBIN A1c (test code = 01654) 6.4 % HEMOGLOBIN [id number] 00:00:00 Test Item Value Reference Range Interpretation Comments HEMOGLOBIN A1c (test code = 65302) 6.4 % HEMOGLOBIN [id number] 00:00:00 Test Item Value Reference Range Interpretation Comments HEMOGLOBIN A1c (test code = 84438) 6.4 % CBC W/AUTO [id number] 00:00:00 Test Item Value Reference Range Interpretation [...] code = 1015) 243 K/UL CBC W/AUTO [id number] 00:00:00 Test Item Value Reference Range Interpretation [...] code = 1015) 243 K/UL CBC W/AUTO [id number] 00:00:00 Test Item Value Reference Range Interpretation [...] (test code = 1015) 243 K/UL HEMOGLOBIN [id number] 00:00:00 Test Item Value Reference Range Interpretation Comments HEMOGLOBIN A1c (test code = 26912) 6.4 % HEMOGLOBIN [id number] 00:00:00 Test Item Value Reference Range Interpretation Comments HEMOGLOBIN A1c (test code = 27035) 6.4 % HEMOGLOBIN [id number] 00:00:00 Test Item Value Reference Range Interpretation Comments HEMOGLOBIN A1c (test code = 89516) 6.4 % CBC W/AUTO [id number] 00:00:00 Test Item Value Reference Range Interpretation [...] code = 1015) 243 K/UL CBC W/AUTO [id number] 00:00:00 Test Item Value Reference Range Interpretation [...] code = 1015) 243 K/UL CBC W/AUTO [id number] 00:00:00 Test Item Value Reference Range Interpretation [...] (test code = 1015) 243 K/UL HEMOGLOBIN [id number] 00:00:00 Test Item Value Reference Range Interpretation Comments HEMOGLOBIN A1c (test code = 96760) 6.4 % HEMOGLOBIN [id number] 00:00:00 Test Item Value Reference Range Interpretation Comments HEMOGLOBIN A1c (test code = 13524) 6.4 % HEMOGLOBIN [id number] 00:00:00 Test Item Value Reference Range Interpretation Comments HEMOGLOBIN A1c (test code = 78947) 6.4 % CBC W/AUTO [id number] 00:00:00 Test Item Value Reference Range Interpretation [...] code = 1015) 243 K/UL CBC W/AUTO [id number] 00:00:00 Test Item Value Reference Range Interpretation [...] code = 1015) 243 K/UL CBC W/AUTO [id number] 00:00:00 Test Item Value Reference Range Interpretation [...] (test code = 1015) 243 K/UL HEMOGLOBIN [id number] 00:00:00 Test Item Value Reference Range Interpretation Comments HEMOGLOBIN A1c (test code = 29415) 6.4 % HEMOGLOBIN [id number] 00:00:00 Test Item Value Reference Range Interpretation Comments HEMOGLOBIN A1c (test code = 03152) 6.4 % HEMOGLOBIN [id number] 00:00:00 Test Item Value Reference Range Interpretation Comments HEMOGLOBIN A1c (test code = 81834) 6.4 % CBC W/AUTO [id number] 00:00:00 Test Item Value Reference Range Interpretation [...] code = 1015) 243 K/UL CBC W/AUTO [id number] 00:00:00 Test Item Value Reference Range Interpretation [...] code = 1015) 243 K/UL CBC W/AUTO [id number] 00:00:00 Test Item Value Reference Range Interpretation [...] (test code = 1015) 243 K/UL HEMOGLOBIN [id number] 00:00:00 Test Item Value Reference Range Interpretation Comments HEMOGLOBIN A1c (test code = 47196) 6.4 % HEMOGLOBIN [id number] 00:00:00 Test Item Value Reference Range Interpretation Comments HEMOGLOBIN A1c (test code = 55366) 6.4 % HEMOGLOBIN [id number] 00:00:00 Test Item Value Reference Range Interpretation Comments HEMOGLOBIN A1c (test code = 18997) 6.4 % CBC W/AUTO [id number] 00:00:00 Test Item Value Reference Range Interpretation [...] code = 1015) 243 K/UL CBC W/AUTO [id number] 00:00:00 Test Item Value Reference Range Interpretation [...] code = 1015) 243 K/UL CBC W/AUTO [id number] 00:00:00 Test Item Value Reference Range Interpretation [...] (test code = 1015) 243 K/UL HEMOGLOBIN [id number] 00:00:00 Test Item Value Reference Range Interpretation Comments HEMOGLOBIN A1c (test code = 62348) 6.4 % HEMOGLOBIN [id number] 00:00:00 Test Item Value Reference Range Interpretation Comments HEMOGLOBIN A1c (test code = 44827) 6.4 % HEMOGLOBIN [id number] 00:00:00 Test Item Value Reference Range Interpretation Comments HEMOGLOBIN A1c (test code = 64918) 6.4 % CBC W/AUTO [id number] 00:00:00 Test Item Value Reference Range Interpretation [...] code = 1015) 243 K/UL CBC W/AUTO [id number] 00:00:00 Test Item Value Reference Range Interpretation [...] code = 1015) 243 K/UL CBC W/AUTO [id number] 00:00:00 Test Item Value Reference Range Interpretation [...] (test code = 1015) 243 K/UL HEMOGLOBIN [id number] 00:00:00 Test Item Value Reference Range Interpretation Comments HEMOGLOBIN A1c (test code = 54489) 6.4 % HEMOGLOBIN [id number] 00:00:00 Test Item Value Reference Range Interpretation Comments HEMOGLOBIN A1c (test code = 45591) 6.4 % HEMOGLOBIN [id number] 00:00:00 Test Item Value Reference Range Interpretation Comments HEMOGLOBIN A1c (test code = 35481) 6.4 % CBC W/AUTO [id number] 00:00:00 Test Item Value Reference Range Interpretation [...] code = 1015) 243 K/UL CBC W/AUTO [id number] 00:00:00 Test Item Value Reference Range Interpretation [...] (test code = 1015) 243 K/UL HEMOGLOBIN [id number] 00:00:00 Test Item Value Reference Range Interpretation Comments HEMOGLOBIN A1c (test code = 21984) 6.4 % HEMOGLOBIN [id number] 00:00:00 Test Item Value Reference Range Interpretation Comments HEMOGLOBIN A1c (test code = 44727) 6.4 % CBC W/AUTO [id number] 00:00:00 Test Item Value Reference Range Interpretation [...] code = 1015) 243 K/UL CBC W/AUTO [id number] 00:00:00 Test Item Value Reference Range Interpretation [...] code = 1015) 243 K/UL CBC W/AUTO [id number] 00:00:00 Test Item Value Reference Range Interpretation [...] (test code = 1015) 243 K/UL HEMOGLOBIN [id number] 00:00:00 Test Item Value Reference Range Interpretation Comments HEMOGLOBIN A1c (test code = 80621) 6.4 % HEMOGLOBIN [id number] 00:00:00 Test Item Value Reference Range Interpretation Comments HEMOGLOBIN A1c (test code = 86320) 6.4 % HEMOGLOBIN [id number] 00:00:00 Test Item Value Reference Range Interpretation Comments HEMOGLOBIN A1c (test code = 37785) 6.4 % CBC W/AUTO [id number] 00:00:00 Test Item Value Reference Range Interpretation [...] code = 1015) 243 K/UL CBC W/AUTO [id number] 00:00:00 Test Item Value Reference Range Interpretation [...] code = 1015) 243 K/UL CBC W/AUTO [id number] 00:00:00 Test Item Value Reference Range Interpretation [...] (test code = 1015) 243 K/UL HEMOGLOBIN [id number] 00:00:00 Test Item Value Reference Range Interpretation Comments HEMOGLOBIN A1c (test code = 61634) 6.4 % HEMOGLOBIN [id number] 00:00:00 Test Item Value Reference Range Interpretation Comments HEMOGLOBIN A1c (test code = 94233) 6.4 % HEMOGLOBIN [id number] 00:00:00 Test Item Value Reference Range Interpretation Comments HEMOGLOBIN A1c (test code = 20411) 6.4 % CBC W/AUTO [id number] 00:00:00 Test Item Value Reference Range Interpretation [...] code = 1015) 243 K/UL CBC W/AUTO [id number] 00:00:00 Test Item Value Reference Range Interpretation [...] code = 1015) 243 K/UL CBC W/AUTO [id number] 00:00:00 Test Item Value Reference Range Interpretation [...] (test code = 1015) 243 K/UL HEMOGLOBIN [id number] 00:00:00 Test Item Value Reference Range Interpretation Comments HEMOGLOBIN A1c (test code = 92081) 6.4 % HEMOGLOBIN [id number] 00:00:00 Test Item Value Reference Range Interpretation Comments HEMOGLOBIN A1c (test code = 13153) 6.4 % HEMOGLOBIN [id number] 00:00:00 Test Item Value Reference Range Interpretation Comments HEMOGLOBIN A1c (test code = 25040) 6.4 % CHLAMYDIA, AMPLIFIED, [id number] 00:00:00 Test Item Value Reference Range Interpretation Comments CHLAMYDIA, AMPLIFIED (test code = NEGATIVE 73143) CHLAMYDIA, AMPLIFIED, [id number] 00:00:00 Test Item Value Reference Range Interpretation Comments CHLAMYDIA, AMPLIFIED (test code = NEGATIVE 62056) GC, AMPLIFIED, [id number] 00:00:00 Test Item Value Reference Range Interpretation Comments GONORRHEA, AMPLIFIED (test code = NEGATIVE 51114) GC, AMPLIFIED, [id number] 00:00:00 Test Item Value Reference Range Interpretation Comments GONORRHEA, AMPLIFIED (test code = NEGATIVE 41949) HIV AB/AG COMBO RFLX [id number] 00:00:00 Test Item Value Reference Range Interpretation Comments HIV AB/AG COMBO RFLX CONF (test NON-REACTIVE code = 3514) HIV AB/AG COMBO RFLX [id number] 00:00:00 Test Item Value Reference Range Interpretation Comments HIV AB/AG COMBO RFLX CONF (test NON-REACTIVE code = 3514) [id number] 00:00:00 Test Item Value Reference Range Interpretation Comments RPR RESULT (test code = NON-REACTIVE 3501) RPR TITER (test code = 3500) NOT INDIC. TITER [id number] 00:00:00 Test Item Value Reference Range Interpretation Comments RPR RESULT (test code = NON-REACTIVE 3501) RPR TITER (test code = 3500) NOT INDIC. TITER [id number] 00:00:00 Test Item Value Reference Range Interpretation [...] INTERPRETATION HEPATITIS B: (NOTE) (test code = 40381) INTERPRETATION HEPATITIS C: (NOTE) (test code = 23213) HEPATITIS PROFILE (A,B,C)2015-06-24 00:00:00 Test Item Value [...] INTERPRETATION HEPATITIS B: (NOTE) (test code = 75878) INTERPRETATION HEPATITIS C: (NOTE) (test code = 04048) COMPREHENSIVE METABOLIC [id number] 00:00:00 Test Item Value Reference Range Interpretation Comments GLUCOSE (test code = 2217) 105 MG/DL BUN (test code = 2208) 11 MG/DL CREATININE (test code = 2214) 0.80 MG/DL eGFR AMER. (test code 109 ML/MIN/1.73 = 01984) eGFR NON- AMER. (test 94 ML/MIN/1.73 code = 31772) CALCULATED BUN/CREAT (test 14 RATIO code = [...] code = 2219) 14 U/L COMPREHENSIVE METABOLIC [id number] 00:00:00 Test Item Value Reference Range Interpretation Comments GLUCOSE (test code = 2217) 105 MG/DL BUN (test code = 2208) 11 MG/DL CREATININE (test code = 2214) 0.80 MG/DL eGFR AMER. (test code 109 ML/MIN/1.73 = 15323) eGFR NON- AMER. (test 94 ML/MIN/1.73 code = 57599) CALCULATED BUN/CREAT (test 14 RATIO code = [...] (test code = 2219) 14 U/L LIPID [id number] 00:00:00 Test Item Value Reference Range Interpretation Comments CHOLESTEROL (test code = 2210) 211 MG/DL TRIGLYCERIDES (test code = 2232) 209 MG/DL HDL CHOLESTEROL (test code = 2220) 38 MG/DL CALCULATED LDL CHOL (test code = 131 MG/DL 2237) RISK RATIO LDL/HDL (test code = 3.45 RATIO 2238) LIPID [id number] 00:00:00 Test Item Value Reference Range Interpretation Comments CHOLESTEROL (test code = 2210) 211 MG/DL TRIGLYCERIDES (test code = 2232) 209 MG/DL HDL CHOLESTEROL (test code = 2220) 38 MG/DL CALCULATED LDL CHOL (test code = 131 MG/DL 2237) RISK RATIO LDL/HDL (test code = 3.45 RATIO 2238) CBC W/AUTO [id number] 00:00:00 Test Item Value Reference Range Interpretation [...] code = 1015) 254 K/UL CBC W/AUTO [id number] 00:00:00 Test Item Value Reference Range Interpretation [...] code = 1015) 254 K/UL CBC W/AUTO [id number] 00:00:00 Test Item Value Reference Range Interpretation [...] (test code = 1015) 254 K/UL HEMOGLOBIN [id number] 00:00:00 Test Item Value Reference Range Interpretation Comments HEMOGLOBIN A1c (test code = 36217) 6.9 % HEMOGLOBIN [id number] 00:00:00 Test Item Value Reference Range Interpretation Comments HEMOGLOBIN A1c (test code = 93878) 6.9 % HEMOGLOBIN [id number] 00:00:00 Test Item Value Reference Range Interpretation Comments HEMOGLOBIN A1c (test code = 32089) 6.9 % [id number] 00:00:00 Test Item Value Reference Range Interpretation Comments TSH (test code = 2821) 0.5 UIU/ML [id number] 00:00:00 Test Item Value Reference Range Interpretation Comments TSH (test code = 2821) 0.5 UIU/ML [id number] 00:00:00 Test Item Value Reference Range Interpretation Comments TSH (test code = 2821) 0.5 UIU/ML HEPATITIS A IgM [REFLEX]2015-06-24 00:00:00 Test Item Value Reference Range Interpretation Comments HEPATITIS A IgM (test code = NON-REACTIVE 2728) CHLAMYDIA, AMPLIFIED, [id number] 00:00:00 Test Item Value Reference Range Interpretation Comments CHLAMYDIA, AMPLIFIED (test code = NEGATIVE 75405) CHLAMYDIA, AMPLIFIED, [id number] 00:00:00 Test Item Value Reference Range Interpretation Comments CHLAMYDIA, AMPLIFIED (test code = NEGATIVE 82616) GC, AMPLIFIED, [id number] 00:00:00 Test Item Value Reference Range Interpretation Comments GONORRHEA, AMPLIFIED (test code = NEGATIVE 16690) GC, AMPLIFIED, [id number] 00:00:00 Test Item Value Reference Range Interpretation Comments GONORRHEA, AMPLIFIED (test code = NEGATIVE 73167) HIV AB/AG COMBO RFLX [id number] 00:00:00 Test Item Value Reference Range Interpretation Comments HIV AB/AG COMBO RFLX CONF (test NON-REACTIVE code = 3514) HIV AB/AG COMBO RFLX [id number] 00:00:00 Test Item Value Reference Range Interpretation Comments HIV AB/AG COMBO RFLX CONF (test NON-REACTIVE code = 3514) [id number] 00:00:00 Test Item Value Reference Range Interpretation Comments RPR RESULT (test code = NON-REACTIVE 3501) RPR TITER (test code = 3500) NOT INDIC. TITER [id number] 00:00:00 Test Item Value Reference Range Interpretation Comments RPR RESULT (test code = NON-REACTIVE 3501) RPR TITER (test code = 3500) NOT INDIC. TITER [id number] 00:00:00 Test Item Value Reference Range Interpretation [...] INTERPRETATION HEPATITIS B: (NOTE) (test code = 97849) INTERPRETATION HEPATITIS C: (NOTE) (test code = 69910) HEPATITIS PROFILE (A,B,C)2015-06-24 00:00:00 Test Item Value [...] INTERPRETATION HEPATITIS B: (NOTE) (test code = 98393) INTERPRETATION HEPATITIS C: (NOTE) (test code = 67624) COMPREHENSIVE METABOLIC [id number] 00:00:00 Test Item Value Reference Range Interpretation Comments GLUCOSE (test code = 2217) 105 MG/DL BUN (test code = 2208) 11 MG/DL CREATININE (test code = 2214) 0.80 MG/DL eGFR AMER. (test code 109 ML/MIN/1.73 = 40435) eGFR NON- AMER. (test 94 ML/MIN/1.73 code = 24785) CALCULATED BUN/CREAT (test 14 RATIO code = [...] code = 2219) 14 U/L COMPREHENSIVE METABOLIC [id number] 00:00:00 Test Item Value Reference Range Interpretation Comments GLUCOSE (test code = 2217) 105 MG/DL BUN (test code = 2208) 11 MG/DL CREATININE (test code = 2214) 0.80 MG/DL eGFR AMER. (test code 109 ML/MIN/1.73 = 97680) eGFR NON- AMER. (test 94 ML/MIN/1.73 code = 40760) CALCULATED BUN/CREAT (test 14 RATIO code = [...] (test code = 2219) 14 U/L LIPID [id number] 00:00:00 Test Item Value Reference Range Interpretation Comments CHOLESTEROL (test code = 2210) 211 MG/DL TRIGLYCERIDES (test code = 2232) 209 MG/DL HDL CHOLESTEROL (test code = 2220) 38 MG/DL CALCULATED LDL CHOL (test code = 131 MG/DL 2237) RISK RATIO LDL/HDL (test code = 3.45 RATIO 2238) LIPID [id number] 00:00:00 Test Item Value Reference Range Interpretation Comments CHOLESTEROL (test code = 2210) 211 MG/DL TRIGLYCERIDES (test code = 2232) 209 MG/DL HDL CHOLESTEROL (test code = 2220) 38 MG/DL CALCULATED LDL CHOL (test code = 131 MG/DL 2237) RISK RATIO LDL/HDL (test code = 3.45 RATIO 2238) CBC W/AUTO [id number] 00:00:00 Test Item Value Reference Range Interpretation [...] code = 1015) 254 K/UL CBC W/AUTO [id number] 00:00:00 Test Item Value Reference Range Interpretation [...] code = 1015) 254 K/UL CBC W/AUTO [id number] 00:00:00 Test Item Value Reference Range Interpretation [...] (test code = 1015) 254 K/UL HEMOGLOBIN [id number] 00:00:00 Test Item Value Reference Range Interpretation Comments HEMOGLOBIN A1c (test code = 14851) 6.9 % HEMOGLOBIN [id number] 00:00:00 Test Item Value Reference Range Interpretation Comments HEMOGLOBIN A1c (test code = 20207) 6.9 % HEMOGLOBIN [id number] 00:00:00 Test Item Value Reference Range Interpretation Comments HEMOGLOBIN A1c (test code = 46600) 6.9 % [id number] 00:00:00 Test Item Value Reference Range Interpretation Comments TSH (test code = 2821) 0.5 UIU/ML [id number] 00:00:00 Test Item Value Reference Range Interpretation Comments TSH (test code = 2821) 0.5 UIU/ML [id number] 00:00:00 Test Item Value Reference Range Interpretation Comments TSH (test code = 2821) 0.5 UIU/ML HEPATITIS A IgM [REFLEX]2015-06-24 00:00:00 Test Item Value Reference Range Interpretation Comments HEPATITIS A IgM (test code = NON-REACTIVE 8478) CHLAMYDIA, AMPLIFIED, [id number] 00:00:00 Test Item Value Reference Range Interpretation Comments CHLAMYDIA, AMPLIFIED (test code = NEGATIVE 83711) CHLAMYDIA, AMPLIFIED, [id number] 00:00:00 Test Item Value Reference Range Interpretation Comments CHLAMYDIA, AMPLIFIED (test code = NEGATIVE 98612) GC, AMPLIFIED, [id number] 00:00:00 Test Item Value Reference Range Interpretation Comments GONORRHEA, AMPLIFIED (test code = NEGATIVE 45715) GC, AMPLIFIED, [id number] 00:00:00 Test Item Value Reference Range Interpretation Comments GONORRHEA, AMPLIFIED (test code = NEGATIVE 91587) HIV AB/AG COMBO RFLX [id number] 00:00:00 Test Item Value Reference Range Interpretation Comments HIV AB/AG COMBO RFLX CONF (test NON-REACTIVE code = 3514) HIV AB/AG COMBO RFLX [id number] 00:00:00 Test Item Value Reference Range Interpretation Comments HIV AB/AG COMBO RFLX CONF (test NON-REACTIVE code = 3514) [id number] 00:00:00 Test Item Value Reference Range Interpretation Comments RPR RESULT (test code = NON-REACTIVE 3501) RPR TITER (test code = 3500) NOT INDIC. TITER [id number] 00:00:00 Test Item Value Reference Range Interpretation Comments RPR RESULT (test code = NON-REACTIVE 3501) RPR TITER (test code = 3500) NOT INDIC. TITER [id number] 00:00:00 Test Item Value Reference Range Interpretation [...] INTERPRETATION HEPATITIS B: (NOTE) (test code = 26368) INTERPRETATION HEPATITIS C: (NOTE) (test code = 15958) HEPATITIS PROFILE (A,B,C)2015-06-24 00:00:00 Test Item Value Reference Range Interpretation Comments HEPATITIS A TOTAL AB (test code REACTIVE = 2725) HEPATITIS B SURF AG (test code = NON-REACTIVE 9) HEP B CORE TOTAL AB (test code = NON-REACTIVE 7417) HEPATITIS B SURFACE AB (test NON-REACTIVE code = 1109) HEPATITIS C ANTIBODY (test code NON-REACTIVE = 4675) INTERPRETATION HEPATITIS A: (NOTE) (test code = 2552) INTERPRETATION HEPATITIS B: (NOTE) (test code = 45062) INTERPRETATION HEPATITIS C: (NOTE) (test code = 79672) COMPREHENSIVE METABOLIC [id number] 00:00:00 Test Item Value Reference Range Interpretation Comments GLUCOSE (test code = 2217) 105 MG/DL BUN (test code = 2208) 11 MG/DL CREATININE (test code = 2214) 0.80 MG/DL eGFR AMER. (test code 109 ML/MIN/1.73 = 15535) eGFR NON- AMER. (test 94 ML/MIN/1.73 code = 57572) CALCULATED BUN/CREAT (test 14 RATIO code = [...] code = 2219) 14 U/L COMPREHENSIVE METABOLIC [id number] 00:00:00 Test Item Value Reference Range Interpretation Comments GLUCOSE (test code = 2217) 105 MG/DL BUN (test code = 2208) 11 MG/DL CREATININE (test code = 2214) 0.80 MG/DL eGFR AMER. (test code 109 ML/MIN/1.73 = 39867) eGFR NON- AMER. (test 94 ML/MIN/1.73 code = 20860) CALCULATED BUN/CREAT (test 14 RATIO code = [...] (test code = 2219) 14 U/L LIPID [id number] 00:00:00 Test Item Value Reference Range Interpretation Comments CHOLESTEROL (test code = 2210) 211 MG/DL TRIGLYCERIDES (test code = 2232) 209 MG/DL HDL CHOLESTEROL (test code = 2220) 38 MG/DL CALCULATED LDL CHOL (test code = 131 MG/DL 7) RISK RATIO LDL/HDL (test code = 3.45 RATIO 2238) LIPID [id number] 00:00:00 Test Item Value Reference Range Interpretation Comments CHOLESTEROL (test code = 2210) 211 MG/DL TRIGLYCERIDES (test code = 2232) 209 MG/DL HDL CHOLESTEROL (test code = 2220) 38 MG/DL CALCULATED LDL CHOL (test code = 131 MG/DL 2237) RISK RATIO LDL/HDL (test code = 3.45 RATIO 2238) CBC W/AUTO [id number] 00:00:00 Test Item Value Reference Range Interpretation [...] code = 1015) 254 K/UL CBC W/AUTO [id number] 00:00:00 Test Item Value Reference Range Interpretation [...] code = 1015) 254 K/UL CBC W/AUTO [id number] 00:00:00 Test Item Value Reference Range Interpretation [...] (test code = 1015) 254 K/UL HEMOGLOBIN [id number] 00:00:00 Test Item Value Reference Range Interpretation Comments HEMOGLOBIN A1c (test code = 97576) 6.9 % HEMOGLOBIN [id number] 00:00:00 Test Item Value Reference Range Interpretation Comments HEMOGLOBIN A1c (test code = 59650) 6.9 % HEMOGLOBIN [id number] 00:00:00 Test Item Value Reference Range Interpretation Comments HEMOGLOBIN A1c (test code = 19121) 6.9 % [id number] 00:00:00 Test Item Value Reference Range Interpretation Comments TSH (test code = 2821) 0.5 UIU/ML [id number] 00:00:00 Test Item Value Reference Range Interpretation Comments TSH (test code = 2821) 0.5 UIU/ML [id number] 00:00:00 Test Item Value Reference Range Interpretation Comments TSH (test code = 2821) 0.5 UIU/ML HEPATITIS A IgM [REFLEX]2015-06-24 00:00:00 Test Item Value Reference Range Interpretation Comments HEPATITIS A IgM (test code = NON-REACTIVE 2728) CHLAMYDIA, AMPLIFIED, [id number] 00:00:00 Test Item Value Reference Range Interpretation Comments CHLAMYDIA, AMPLIFIED (test code = NEGATIVE 45636) CHLAMYDIA, AMPLIFIED, [id number] 00:00:00 Test Item Value Reference Range Interpretation Comments CHLAMYDIA, AMPLIFIED (test code = NEGATIVE 23353) GC, AMPLIFIED, [id number] 00:00:00 Test Item Value Reference Range Interpretation Comments GONORRHEA, AMPLIFIED (test code = NEGATIVE 06550) GC, AMPLIFIED, [id number] 00:00:00 Test Item Value Reference Range Interpretation Comments GONORRHEA, AMPLIFIED (test code = NEGATIVE 33173) HIV AB/AG COMBO RFLX [id number] 00:00:00 Test Item Value Reference Range Interpretation Comments HIV AB/AG COMBO RFLX CONF (test NON-REACTIVE code = 3514) HIV AB/AG COMBO RFLX [id number] 00:00:00 Test Item Value Reference Range Interpretation Comments HIV AB/AG COMBO RFLX CONF (test NON-REACTIVE code = 3514) [id number] 00:00:00 Test Item Value Reference Range Interpretation Comments RPR RESULT (test code = NON-REACTIVE 3501) RPR TITER (test code = 3500) NOT INDIC. TITER [id number] 00:00:00 Test Item Value Reference Range Interpretation Comments RPR RESULT (test code = NON-REACTIVE 3501) RPR TITER (test code = 3500) NOT INDIC. TITER [id number] 00:00:00 Test Item Value Reference Range Interpretation [...] INTERPRETATION HEPATITIS B: (NOTE) (test code = 94758) INTERPRETATION HEPATITIS C: (NOTE) (test code = 08487) HEPATITIS PROFILE (A,B,C)2015-06-24 00:00:00 Test Item Value [...] INTERPRETATION HEPATITIS B: (NOTE) (test code = 17918) INTERPRETATION HEPATITIS C: (NOTE) (test code = 46094) COMPREHENSIVE METABOLIC [id number] 00:00:00 Test Item Value Reference Range Interpretation Comments GLUCOSE (test code = 2217) 105 MG/DL BUN (test code = 2208) 11 MG/DL CREATININE (test code = 2214) 0.80 MG/DL eGFR AMER. (test code 109 ML/MIN/1.73 = 55973) eGFR NON- AMER. (test 94 ML/MIN/1.73 code = 13125) CALCULATED BUN/CREAT (test 14 RATIO code = [...] code = 2219) 14 U/L COMPREHENSIVE METABOLIC [id number] 00:00:00 Test Item Value Reference Range Interpretation Comments GLUCOSE (test code = 2217) 105 MG/DL BUN (test code = 2208) 11 MG/DL CREATININE (test code = 2214) 0.80 MG/DL eGFR AMER. (test code 109 ML/MIN/1.73 = 03216) eGFR NON- AMER. (test 94 ML/MIN/1.73 code = 98796) CALCULATED BUN/CREAT (test 14 RATIO code = [...] (test code = 2219) 14 U/L LIPID [id number] 00:00:00 Test Item Value Reference Range Interpretation Comments CHOLESTEROL (test code = 2210) 211 MG/DL TRIGLYCERIDES (test code = 2232) 209 MG/DL HDL CHOLESTEROL (test code = 2220) 38 MG/DL CALCULATED LDL CHOL (test code = 131 MG/DL 2236) RISK RATIO LDL/HDL (test code = 3.45 RATIO 2238) LIPID [id number] 00:00:00 Test Item Value Reference Range Interpretation Comments CHOLESTEROL (test code = 2210) 211 MG/DL TRIGLYCERIDES (test code = 2232) 209 MG/DL HDL CHOLESTEROL (test code = 2220) 38 MG/DL CALCULATED LDL CHOL (test code = 131 MG/DL 2236) RISK RATIO LDL/HDL (test code = 3.45 RATIO 2238) CBC W/AUTO [id number] 00:00:00 Test Item Value Reference Range Interpretation [...] code = 1015) 254 K/UL CBC W/AUTO [id number] 00:00:00 Test Item Value Reference Range Interpretation [...] code = 1015) 254 K/UL CBC W/AUTO [id number] 00:00:00 Test Item Value Reference Range Interpretation [...] (test code = 1015) 254 K/UL HEMOGLOBIN [id number] 00:00:00 Test Item Value Reference Range Interpretation Comments HEMOGLOBIN A1c (test code = 51210) 6.9 % HEMOGLOBIN [id number] 00:00:00 Test Item Value Reference Range Interpretation Comments HEMOGLOBIN A1c (test code = 51556) 6.9 % HEMOGLOBIN [id number] 00:00:00 Test Item Value Reference Range Interpretation Comments HEMOGLOBIN A1c (test code = 96392) 6.9 % [id number] 00:00:00 Test Item Value Reference Range Interpretation Comments TSH (test code = 2821) 0.5 UIU/ML [id number] 00:00:00 Test Item Value Reference Range Interpretation Comments TSH (test code = 2821) 0.5 UIU/ML [id number] 00:00:00 Test Item Value Reference Range Interpretation Comments TSH (test code = 2821) 0.5 UIU/ML HEPATITIS A IgM [REFLEX]2015-06-24 00:00:00 Test Item Value Reference Range Interpretation Comments HEPATITIS A IgM (test code = NON-REACTIVE 2728) CHLAMYDIA, AMPLIFIED, [id number] 00:00:00 Test Item Value Reference Range Interpretation Comments CHLAMYDIA, AMPLIFIED (test code = NEGATIVE 85234) CHLAMYDIA, AMPLIFIED, [id number] 00:00:00 Test Item Value Reference Range Interpretation Comments CHLAMYDIA, AMPLIFIED (test code = NEGATIVE 28179) GC, AMPLIFIED, [id number] 00:00:00 Test Item Value Reference Range Interpretation Comments GONORRHEA, AMPLIFIED (test code = NEGATIVE 25816) GC, AMPLIFIED, [id number] 00:00:00 Test Item Value Reference Range Interpretation Comments GONORRHEA, AMPLIFIED (test code = NEGATIVE 20475) HIV AB/AG COMBO RFLX [id number] 00:00:00 Test Item Value Reference Range Interpretation Comments HIV AB/AG COMBO RFLX CONF (test NON-REACTIVE code = 3514) HIV AB/AG COMBO RFLX [id number] 00:00:00 Test Item Value Reference Range Interpretation Comments HIV AB/AG COMBO RFLX CONF (test NON-REACTIVE code = 3514) [id number] 00:00:00 Test Item Value Reference Range Interpretation Comments RPR RESULT (test code = NON-REACTIVE 3501) RPR TITER (test code = 3500) NOT INDIC. TITER [id number] 00:00:00 Test Item Value Reference Range Interpretation Comments RPR RESULT (test code = NON-REACTIVE 3501) RPR TITER (test code = 3500) NOT INDIC. TITER [id number] 00:00:00 Test Item Value Reference Range Interpretation [...] INTERPRETATION HEPATITIS B: (NOTE) (test code = 31622) INTERPRETATION HEPATITIS C: (NOTE) (test code = 84147) HEPATITIS PROFILE (A,B,C)2015-06-24 00:00:00 Test Item Value [...] INTERPRETATION HEPATITIS B: (NOTE) (test code = 04260) INTERPRETATION HEPATITIS C: (NOTE) (test code = 92528) COMPREHENSIVE METABOLIC [id number] 00:00:00 Test Item Value Reference Range Interpretation Comments GLUCOSE (test code = 2217) 105 MG/DL BUN (test code = 2208) 11 MG/DL CREATININE (test code = 2214) 0.80 MG/DL eGFR AMER. (test code 109 ML/MIN/1.73 = 95008) eGFR NON- AMER. (test 94 ML/MIN/1.73 code = 08260) CALCULATED BUN/CREAT (test 14 RATIO code = [...] code = 2219) 14 U/L COMPREHENSIVE METABOLIC [id number] 00:00:00 Test Item Value Reference Range Interpretation Comments GLUCOSE (test code = 2217) 105 MG/DL BUN (test code = 2208) 11 MG/DL CREATININE (test code = 2214) 0.80 MG/DL eGFR AMER. (test code 109 ML/MIN/1.73 = 71471) eGFR NON- AMER. (test 94 ML/MIN/1.73 code = 04060) CALCULATED BUN/CREAT (test 14 RATIO code = [...] (test code = 2219) 14 U/L LIPID [id number] 00:00:00 Test Item Value Reference Range Interpretation Comments CHOLESTEROL (test code = 2210) 211 MG/DL TRIGLYCERIDES (test code = 2232) 209 MG/DL HDL CHOLESTEROL (test code = 2220) 38 MG/DL CALCULATED LDL CHOL (test code = 131 MG/DL 2237) RISK RATIO LDL/HDL (test code = 3.45 RATIO 2238) LIPID [id number] 00:00:00 Test Item Value Reference Range Interpretation Comments CHOLESTEROL (test code = 2210) 211 MG/DL TRIGLYCERIDES (test code = 2232) 209 MG/DL HDL CHOLESTEROL (test code = 2220) 38 MG/DL CALCULATED LDL CHOL (test code = 131 MG/DL 2237) RISK RATIO LDL/HDL (test code = 3.45 RATIO 2238) CBC W/AUTO [id number] 00:00:00 Test Item Value Reference Range Interpretation [...] code = 1015) 254 K/UL CBC W/AUTO [id number] 00:00:00 Test Item Value Reference Range Interpretation [...] code = 1015) 254 K/UL CBC W/AUTO [id number] 00:00:00 Test Item Value Reference Range Interpretation [...] (test code = 1015) 254 K/UL HEMOGLOBIN [id number] 00:00:00 Test Item Value Reference Range Interpretation Comments HEMOGLOBIN A1c (test code = 86862) 6.9 % HEMOGLOBIN [id number] 00:00:00 Test Item Value Reference Range Interpretation Comments HEMOGLOBIN A1c (test code = 50867) 6.9 % HEMOGLOBIN [id number] 00:00:00 Test Item Value Reference Range Interpretation Comments HEMOGLOBIN A1c (test code = 20254) 6.9 % [id number] 00:00:00 Test Item Value Reference Range Interpretation Comments TSH (test code = 2821) 0.5 UIU/ML [id number] 00:00:00 Test Item Value Reference Range Interpretation Comments TSH (test code = 2821) 0.5 UIU/ML [id number] 00:00:00 Test Item Value Reference Range Interpretation Comments TSH (test code = 2821) 0.5 UIU/ML HEPATITIS A IgM [REFLEX]2015-06-24 00:00:00 Test Item Value Reference Range Interpretation Comments HEPATITIS A IgM (test code = NON-REACTIVE 2728) CHLAMYDIA, AMPLIFIED, [id number] 00:00:00 Test Item Value Reference Range Interpretation Comments CHLAMYDIA, AMPLIFIED (test code = NEGATIVE 67393) CHLAMYDIA, AMPLIFIED, [id number] 00:00:00 Test Item Value Reference Range Interpretation Comments CHLAMYDIA, AMPLIFIED (test code = NEGATIVE 50598) GC, AMPLIFIED, [id number] 00:00:00 Test Item Value Reference Range Interpretation Comments GONORRHEA, AMPLIFIED (test code = NEGATIVE 19993) GC, AMPLIFIED, [id number] 00:00:00 Test Item Value Reference Range Interpretation Comments GONORRHEA, AMPLIFIED (test code = NEGATIVE 72513) HIV AB/AG COMBO RFLX [id number] 00:00:00 Test Item Value Reference Range Interpretation Comments HIV AB/AG COMBO RFLX CONF (test NON-REACTIVE code = 3514) HIV AB/AG COMBO RFLX [id number] 00:00:00 Test Item Value Reference Range Interpretation Comments HIV AB/AG COMBO RFLX CONF (test NON-REACTIVE code = 3514) [id number] 00:00:00 Test Item Value Reference Range Interpretation Comments RPR RESULT (test code = NON-REACTIVE 3501) RPR TITER (test code = 3500) NOT INDIC. TITER [id number] 00:00:00 Test Item Value Reference Range Interpretation Comments RPR RESULT (test code = NON-REACTIVE 3501) RPR TITER (test code = 3500) NOT INDIC. TITER [id number] 00:00:00 Test Item Value Reference Range Interpretation [...] INTERPRETATION HEPATITIS B: (NOTE) (test code = 92732) INTERPRETATION HEPATITIS C: (NOTE) (test code = 89104) HEPATITIS PROFILE (A,B,C)2015-06-24 00:00:00 Test Item Value [...] INTERPRETATION HEPATITIS B: (NOTE) (test code = 97823) INTERPRETATION HEPATITIS C: (NOTE) (test code = 45239) COMPREHENSIVE METABOLIC [id number] 00:00:00 Test Item Value Reference Range Interpretation Comments GLUCOSE (test code = 2217) 105 MG/DL BUN (test code = 2208) 11 MG/DL CREATININE (test code = 2214) 0.80 MG/DL eGFR AMER. (test code 109 ML/MIN/1.73 = 97098) eGFR NON- AMER. (test 94 ML/MIN/1.73 code = 57744) CALCULATED BUN/CREAT (test 14 RATIO code = [...] code = 2219) 14 U/L COMPREHENSIVE METABOLIC [id number] 00:00:00 Test Item Value Reference Range Interpretation Comments GLUCOSE (test code = 2217) 105 MG/DL BUN (test code = 2208) 11 MG/DL CREATININE (test code = 2214) 0.80 MG/DL eGFR AMER. (test code 109 ML/MIN/1.73 = 18315) eGFR NON- AMER. (test 94 ML/MIN/1.73 code = 15846) CALCULATED BUN/CREAT (test 14 RATIO code = [...] (test code = 2219) 14 U/L LIPID [id number] 00:00:00 Test Item Value Reference Range Interpretation Comments CHOLESTEROL (test code = 2210) 211 MG/DL TRIGLYCERIDES (test code = 2232) 209 MG/DL HDL CHOLESTEROL (test code = 2220) 38 MG/DL CALCULATED LDL CHOL (test code = 131 MG/DL 2236) RISK RATIO LDL/HDL (test code = 3.45 RATIO 2238) LIPID [id number] 00:00:00 Test Item Value Reference Range Interpretation Comments CHOLESTEROL (test code = 2210) 211 MG/DL TRIGLYCERIDES (test code = 2232) 209 MG/DL HDL CHOLESTEROL (test code = 2220) 38 MG/DL CALCULATED LDL CHOL (test code = 131 MG/DL 2236) RISK RATIO LDL/HDL (test code = 3.45 RATIO 2238) CBC W/AUTO [id number] 00:00:00 Test Item Value Reference Range Interpretation [...] code = 1015) 254 K/UL CBC W/AUTO [id number] 00:00:00 Test Item Value Reference Range Interpretation [...] code = 1015) 254 K/UL CBC W/AUTO [id number] 00:00:00 Test Item Value Reference Range Interpretation [...] (test code = 1015) 254 K/UL HEMOGLOBIN [id number] 00:00:00 Test Item Value Reference Range Interpretation Comments HEMOGLOBIN A1c (test code = 66157) 6.9 % HEMOGLOBIN [id number] 00:00:00 Test Item Value Reference Range Interpretation Comments HEMOGLOBIN A1c (test code = 55334) 6.9 % HEMOGLOBIN [id number] 00:00:00 Test Item Value Reference Range Interpretation Comments HEMOGLOBIN A1c (test code = 40434) 6.9 % [id number] 00:00:00 Test Item Value Reference Range Interpretation Comments TSH (test code = 2821) 0.5 UIU/ML [id number] 00:00:00 Test Item Value Reference Range Interpretation Comments TSH (test code = 2821) 0.5 UIU/ML [id number] 00:00:00 Test Item Value Reference Range Interpretation Comments TSH (test code = 2821) 0.5 UIU/ML HEPATITIS A IgM [REFLEX]2015-06-24 00:00:00 Test Item Value Reference Range Interpretation Comments HEPATITIS A IgM (test code = NON-REACTIVE 2728) CHLAMYDIA, AMPLIFIED, [id number] 00:00:00 Test Item Value Reference Range Interpretation Comments CHLAMYDIA, AMPLIFIED (test code = NEGATIVE 23091) CHLAMYDIA, AMPLIFIED, [id number] 00:00:00 Test Item Value Reference Range Interpretation Comments CHLAMYDIA, AMPLIFIED (test code = NEGATIVE 88833) GC, AMPLIFIED, [id number] 00:00:00 Test Item Value Reference Range Interpretation Comments GONORRHEA, AMPLIFIED (test code = NEGATIVE 38398) GC, AMPLIFIED, [id number] 00:00:00 Test Item Value Reference Range Interpretation Comments GONORRHEA, AMPLIFIED (test code = NEGATIVE 05691) HIV AB/AG COMBO RFLX [id number] 00:00:00 Test Item Value Reference Range Interpretation Comments HIV AB/AG COMBO RFLX CONF (test NON-REACTIVE code = 3514) HIV AB/AG COMBO RFLX [id number] 00:00:00 Test Item Value Reference Range Interpretation Comments HIV AB/AG COMBO RFLX CONF (test NON-REACTIVE code = 3514) [id number] 00:00:00 Test Item Value Reference Range Interpretation Comments RPR RESULT (test code = NON-REACTIVE 3501) RPR TITER (test code = 3500) NOT INDIC. TITER [id number] 00:00:00 Test Item Value Reference Range Interpretation Comments RPR RESULT (test code = NON-REACTIVE 3501) RPR TITER (test code = 3500) NOT INDIC. TITER [id number] 00:00:00 Test Item Value Reference Range Interpretation [...] INTERPRETATION HEPATITIS B: (NOTE) (test code = 83973) INTERPRETATION HEPATITIS C: (NOTE) (test code = 72096) HEPATITIS PROFILE (A,B,C)2015-06-24 00:00:00 Test Item Value [...] INTERPRETATION HEPATITIS B: (NOTE) (test code = 56902) INTERPRETATION HEPATITIS C: (NOTE) (test code = 69439) COMPREHENSIVE METABOLIC [id number] 00:00:00 Test Item Value Reference Range Interpretation Comments GLUCOSE (test code = 2217) 105 MG/DL BUN (test code = 2208) 11 MG/DL CREATININE (test code = 2214) 0.80 MG/DL eGFR AMER. (test code 109 ML/MIN/1.73 = 27867) eGFR NON- AMER. (test 94 ML/MIN/1.73 code = 80449) CALCULATED BUN/CREAT (test 14 RATIO code = [...] code = 2219) 14 U/L COMPREHENSIVE METABOLIC [id number] 00:00:00 Test Item Value Reference Range Interpretation Comments GLUCOSE (test code = 2217) 105 MG/DL BUN (test code = 2208) 11 MG/DL CREATININE (test code = 2214) 0.80 MG/DL eGFR AMER. (test code 109 ML/MIN/1.73 = 27183) eGFR NON- AMER. (test 94 ML/MIN/1.73 code = 26621) CALCULATED BUN/CREAT (test 14 RATIO code = [...] (test code = 2219) 14 U/L LIPID [id number] 00:00:00 Test Item Value Reference Range Interpretation Comments CHOLESTEROL (test code = 2210) 211 MG/DL TRIGLYCERIDES (test code = 2232) 209 MG/DL HDL CHOLESTEROL (test code = 2220) 38 MG/DL CALCULATED LDL CHOL (test code = 131 MG/DL 2237) RISK RATIO LDL/HDL (test code = 3.45 RATIO 2238) LIPID [id number] 00:00:00 Test Item Value Reference Range Interpretation Comments CHOLESTEROL (test code = 2210) 211 MG/DL TRIGLYCERIDES (test code = 2232) 209 MG/DL HDL CHOLESTEROL (test code = 2220) 38 MG/DL CALCULATED LDL CHOL (test code = 131 MG/DL 2237) RISK RATIO LDL/HDL (test code = 3.45 RATIO 2238) CBC W/AUTO [id number] 00:00:00 Test Item Value Reference Range Interpretation [...] code = 1015) 254 K/UL CBC W/AUTO [id number] 00:00:00 Test Item Value Reference Range Interpretation [...] code = 1015) 254 K/UL CBC W/AUTO [id number] 00:00:00 Test Item Value Reference Range Interpretation [...] (test code = 1015) 254 K/UL HEMOGLOBIN [id number] 00:00:00 Test Item Value Reference Range Interpretation Comments HEMOGLOBIN A1c (test code = 43724) 6.9 % HEMOGLOBIN [id number] 00:00:00 Test Item Value Reference Range Interpretation Comments HEMOGLOBIN A1c (test code = 32403) 6.9 % HEMOGLOBIN [id number] 00:00:00 Test Item Value Reference Range Interpretation Comments HEMOGLOBIN A1c (test code = 97609) 6.9 % [id number] 00:00:00 Test Item Value Reference Range Interpretation Comments TSH (test code = 2821) 0.5 UIU/ML [id number] 00:00:00 Test Item Value Reference Range Interpretation Comments TSH (test code = 2821) 0.5 UIU/ML [id number] 00:00:00 Test Item Value Reference Range Interpretation Comments TSH (test code = 2821) 0.5 UIU/ML HEPATITIS A IgM [REFLEX]2015-06-24 00:00:00 Test Item Value Reference Range Interpretation Comments HEPATITIS A IgM (test code = NON-REACTIVE 7118) CHLAMYDIA, AMPLIFIED, [id number] 00:00:00 Test Item Value Reference Range Interpretation Comments CHLAMYDIA, AMPLIFIED (test code = NEGATIVE 11578) GC, AMPLIFIED, [id number] 00:00:00 Test Item Value Reference Range Interpretation Comments GONORRHEA, AMPLIFIED (test code = NEGATIVE 54306) HIV AB/AG COMBO RFLX [id number] 00:00:00 Test Item Value Reference Range Interpretation Comments HIV AB/AG COMBO RFLX CONF (test NON-REACTIVE code = 3514) [id number] 00:00:00 Test Item Value Reference Range Interpretation Comments RPR RESULT (test code = NON-REACTIVE 3501) RPR TITER (test code = 3500) NOT INDIC. TITER CHLAMYDIA, AMPLIFIED, [id number] 00:00:00 Test Item Value Reference Range Interpretation Comments CHLAMYDIA, AMPLIFIED (test code = NEGATIVE 50237) [id number] 00:00:00 Test Item Value Reference Range Interpretation Comments RPR RESULT (test code = NON-REACTIVE 3501) RPR TITER (test code = 3500) NOT INDIC. TITER CHLAMYDIA, AMPLIFIED, [id number] 00:00:00 Test Item Value Reference Range Interpretation Comments CHLAMYDIA, AMPLIFIED (test code = NEGATIVE 74824) GC, AMPLIFIED, [id number] 00:00:00 Test Item Value Reference Range Interpretation Comments GONORRHEA, AMPLIFIED (test code = NEGATIVE 55407) GC, AMPLIFIED, [id number] 00:00:00 Test Item Value Reference Range Interpretation Comments GONORRHEA, AMPLIFIED (test code = NEGATIVE 43201) HIV AB/AG COMBO RFLX [id number] 00:00:00 Test Item Value Reference Range Interpretation Comments HIV AB/AG COMBO RFLX CONF (test NON-REACTIVE code = 3514) HIV AB/AG COMBO RFLX [id number] 00:00:00 Test Item Value Reference Range Interpretation Comments HIV AB/AG COMBO RFLX CONF (test NON-REACTIVE code = 3514) [id number] 00:00:00 Test Item Value Reference Range Interpretation Comments RPR RESULT (test code = NON-REACTIVE 3501) RPR TITER (test code = 3500) NOT INDIC. TITER [id number] 00:00:00 Test Item Value Reference Range Interpretation Comments RPR RESULT (test code = NON-REACTIVE 3501) RPR TITER (test code = 3500) NOT INDIC. TITER [id number] 00:00:00 Test Item Value Reference Range Interpretation [...] INTERPRETATION HEPATITIS B: (NOTE) (test code = 06002) INTERPRETATION HEPATITIS C: (NOTE) (test code = 47110) HEPATITIS PROFILE (A,B,C)2015-06-24 00:00:00 Test Item Value [...] INTERPRETATION HEPATITIS B: (NOTE) (test code = 49641) INTERPRETATION HEPATITIS C: (NOTE) (test code = 76931) HEPATITIS PROFILE (A,B,C)2015-06-24 00:00:00 Test Item Value [...] INTERPRETATION HEPATITIS B: (NOTE) (test code = 19553) INTERPRETATION HEPATITIS C: (NOTE) (test code = 72290) COMPREHENSIVE METABOLIC [id number] 00:00:00 Test Item Value Reference Range Interpretation Comments GLUCOSE (test code = 2217) 105 MG/DL BUN (test code = 2208) 11 MG/DL CREATININE (test code = 2214) 0.80 MG/DL eGFR AMER. (test code 109 ML/MIN/1.73 = 68475) eGFR NON- AMER. (test 94 ML/MIN/1.73 code = 58667) CALCULATED BUN/CREAT (test 14 RATIO code = [...] code = 2219) 14 U/L COMPREHENSIVE METABOLIC [id number] 00:00:00 Test Item Value Reference Range Interpretation Comments GLUCOSE (test code = 2217) 105 MG/DL BUN (test code = 2208) 11 MG/DL CREATININE (test code = 2214) 0.80 MG/DL eGFR AMER. (test code 109 ML/MIN/1.73 = 38612) eGFR NON- AMER. (test 94 ML/MIN/1.73 code = 03772) CALCULATED BUN/CREAT (test 14 RATIO code = [...] (test code = 2219) 14 U/L LIPID [id number] 00:00:00 Test Item Value Reference Range Interpretation Comments CHOLESTEROL (test code = 2210) 211 MG/DL TRIGLYCERIDES (test code = 2232) 209 MG/DL HDL CHOLESTEROL (test code = 2220) 38 MG/DL CALCULATED LDL CHOL (test code = 131 MG/DL 2237) RISK RATIO LDL/HDL (test code = 3.45 RATIO 2238) LIPID [id number] 00:00:00 Test Item Value Reference Range Interpretation Comments CHOLESTEROL (test code = 2210) 211 MG/DL TRIGLYCERIDES (test code = 2232) 209 MG/DL HDL CHOLESTEROL (test code = 2220) 38 MG/DL CALCULATED LDL CHOL (test code = 131 MG/DL 2237) RISK RATIO LDL/HDL (test code = 3.45 RATIO 2238) CBC W/AUTO [id number] 00:00:00 Test Item Value Reference Range Interpretation [...] code = 1015) 254 K/UL CBC W/AUTO [id number] 00:00:00 Test Item Value Reference Range Interpretation [...] code = 1015) 254 K/UL CBC W/AUTO [id number] 00:00:00 Test Item Value Reference Range Interpretation [...] (test code = 1015) 254 K/UL HEMOGLOBIN [id number] 00:00:00 Test Item Value Reference Range Interpretation Comments HEMOGLOBIN A1c (test code = 71062) 6.9 % HEMOGLOBIN [id number] 00:00:00 Test Item Value Reference Range Interpretation Comments HEMOGLOBIN A1c (test code = 59170) 6.9 % HEMOGLOBIN [id number] 00:00:00 Test Item Value Reference Range Interpretation Comments HEMOGLOBIN A1c (test code = 09310) 6.9 % [id number] 00:00:00 Test Item Value Reference Range Interpretation Comments TSH (test code = 2821) 0.5 UIU/ML [id number] 00:00:00 Test Item Value Reference Range Interpretation Comments TSH (test code = 2821) 0.5 UIU/ML [id number] 00:00:00 Test Item Value Reference Range Interpretation Comments TSH (test code = 2821) 0.5 UIU/ML HEPATITIS A IgM [REFLEX]2015-06-24 00:00:00 Test Item Value Reference Range Interpretation Comments HEPATITIS A IgM (test code = NON-REACTIVE 2728) COMPREHENSIVE METABOLIC [id number] 00:00:00 Test Item Value Reference Range Interpretation Comments GLUCOSE (test code = 2217) 105 MG/DL BUN (test code = 2208) 11 MG/DL CREATININE (test code = 2214) 0.80 MG/DL eGFR AMER. (test code 109 ML/MIN/1.73 = 80997) eGFR NON- AMER. (test 94 ML/MIN/1.73 code = 10052) CALCULATED BUN/CREAT (test 14 RATIO code = [...] (test code = 2219) 14 U/L LIPID [id number] 00:00:00 Test Item Value Reference Range Interpretation Comments CHOLESTEROL (test code = 2210) 211 MG/DL TRIGLYCERIDES (test code = 2232) 209 MG/DL HDL CHOLESTEROL (test code = 2220) 38 MG/DL CALCULATED LDL CHOL (test code = 131 MG/DL 2237) RISK RATIO LDL/HDL (test code = 3.45 RATIO 2238) CBC W/AUTO [id number] 00:00:00 Test Item Value Reference Range Interpretation [...] code = 1015) 254 K/UL CBC W/AUTO [id number] 00:00:00 Test Item Value Reference Range Interpretation [...] (test code = 1015) 254 K/UL HEMOGLOBIN [id number] 00:00:00 Test Item Value Reference Range Interpretation Comments HEMOGLOBIN A1c (test code = 10380) 6.9 % HEMOGLOBIN [id number] 00:00:00 Test Item Value Reference Range Interpretation Comments HEMOGLOBIN A1c (test code = 56283) 6.9 % [id number] 00:00:00 Test Item Value Reference Range Interpretation Comments TSH (test code = 2821) 0.5 UIU/ML [id number] 00:00:00 Test Item Value Reference Range Interpretation Comments TSH (test code = 2821) 0.5 UIU/ML HEPATITIS A IgM [REFLEX]2015-06-24 00:00:00 Test Item Value Reference Range Interpretation Comments HEPATITIS A IgM (test code = NON-REACTIVE 2728) CHLAMYDIA, AMPLIFIED, [id number] 00:00:00 Test Item Value Reference Range Interpretation Comments CHLAMYDIA, AMPLIFIED (test code = NEGATIVE 79960) CHLAMYDIA, AMPLIFIED, [id number] 00:00:00 Test Item Value Reference Range Interpretation Comments CHLAMYDIA, AMPLIFIED (test code = NEGATIVE 20049) GC, AMPLIFIED, [id number] 00:00:00 Test Item Value Reference Range Interpretation Comments GONORRHEA, AMPLIFIED (test code = NEGATIVE 88678) GC, AMPLIFIED, [id number] 00:00:00 Test Item Value Reference Range Interpretation Comments GONORRHEA, AMPLIFIED (test code = NEGATIVE 18758) HIV AB/AG COMBO RFLX [id number] 00:00:00 Test Item Value Reference Range Interpretation Comments HIV AB/AG COMBO RFLX CONF (test NON-REACTIVE code = 3514) HIV AB/AG COMBO RFLX [id number] 00:00:00 Test Item Value Reference Range Interpretation Comments HIV AB/AG COMBO RFLX CONF (test NON-REACTIVE code = 3514) [id number] 00:00:00 Test Item Value Reference Range Interpretation Comments RPR RESULT (test code = NON-REACTIVE 3501) RPR TITER (test code = 3500) NOT INDIC. TITER [id number] 00:00:00 Test Item Value Reference Range Interpretation Comments RPR RESULT (test code = NON-REACTIVE 3501) RPR TITER (test code = 3500) NOT INDIC. TITER [id number] 00:00:00 Test Item Value Reference Range Interpretation [...] INTERPRETATION HEPATITIS B: (NOTE) (test code = 29316) INTERPRETATION HEPATITIS C: (NOTE) (test code = 47307) HEPATITIS PROFILE (A,B,C)2015-06-24 00:00:00 Test Item Value [...] INTERPRETATION HEPATITIS B: (NOTE) (test code = 88163) INTERPRETATION HEPATITIS C: (NOTE) (test code = 32139) COMPREHENSIVE METABOLIC [id number] 00:00:00 Test Item Value Reference Range Interpretation Comments GLUCOSE (test code = 2217) 105 MG/DL BUN (test code = 2208) 11 MG/DL CREATININE (test code = 2214) 0.80 MG/DL eGFR AMER. (test code 109 ML/MIN/1.73 = 47827) eGFR NON- AMER. (test 94 ML/MIN/1.73 code = 62253) CALCULATED BUN/CREAT (test 14 RATIO code = [...] code = 2219) 14 U/L COMPREHENSIVE METABOLIC [id number] 00:00:00 Test Item Value Reference Range Interpretation Comments GLUCOSE (test code = 2217) 105 MG/DL BUN (test code = 2208) 11 MG/DL CREATININE (test code = 2214) 0.80 MG/DL eGFR AMER. (test code 109 ML/MIN/1.73 = 66571) eGFR NON- AMER. (test 94 ML/MIN/1.73 code = 29144) CALCULATED BUN/CREAT (test 14 RATIO code = [...] (test code = 2219) 14 U/L LIPID [id number] 00:00:00 Test Item Value Reference Range Interpretation Comments CHOLESTEROL (test code = 2210) 211 MG/DL TRIGLYCERIDES (test code = 2232) 209 MG/DL HDL CHOLESTEROL (test code = 2220) 38 MG/DL CALCULATED LDL CHOL (test code = 131 MG/DL 2237) RISK RATIO LDL/HDL (test code = 3.45 RATIO 2238) LIPID [id number] 00:00:00 Test Item Value Reference Range Interpretation Comments CHOLESTEROL (test code = 2210) 211 MG/DL TRIGLYCERIDES (test code = 2232) 209 MG/DL HDL CHOLESTEROL (test code = 2220) 38 MG/DL CALCULATED LDL CHOL (test code = 131 MG/DL 2237) RISK RATIO LDL/HDL (test code = 3.45 RATIO 2238) CBC W/AUTO [id number] 00:00:00 Test Item Value Reference Range Interpretation [...] code = 1015) 254 K/UL CBC W/AUTO [id number] 00:00:00 Test Item Value Reference Range Interpretation [...] code = 1015) 254 K/UL CBC W/AUTO [id number] 00:00:00 Test Item Value Reference Range Interpretation [...] (test code = 1015) 254 K/UL HEMOGLOBIN [id number] 00:00:00 Test Item Value Reference Range Interpretation Comments HEMOGLOBIN A1c (test code = 15059) 6.9 % HEMOGLOBIN [id number] 00:00:00 Test Item Value Reference Range Interpretation Comments HEMOGLOBIN A1c (test code = 49433) 6.9 % HEMOGLOBIN [id number] 00:00:00 Test Item Value Reference Range Interpretation Comments HEMOGLOBIN A1c (test code = 99380) 6.9 % [id number] 00:00:00 Test Item Value Reference Range Interpretation Comments TSH (test code = 2821) 0.5 UIU/ML [id number] 00:00:00 Test Item Value Reference Range Interpretation Comments TSH (test code = 2821) 0.5 UIU/ML [id number] 00:00:00 Test Item Value Reference Range Interpretation Comments TSH (test code = 2821) 0.5 UIU/ML HEPATITIS A IgM [REFLEX][id number] 00:00:00 Test Item Value Reference Range Interpretation Comments HEPATITIS A IgM (test code = NON-REACTIVE 2728) CHLAMYDIA, AMPLIFIED, [id number] 00:00:00 Test Item Value Reference Range Interpretation Comments CHLAMYDIA, AMPLIFIED (test code = NEGATIVE 24870) CHLAMYDIA, AMPLIFIED, [id number] 00:00:00 Test Item Value Reference Range Interpretation Comments CHLAMYDIA, AMPLIFIED (test code = NEGATIVE 96442) GC, AMPLIFIED, [id number] 00:00:00 Test Item Value Reference Range Interpretation Comments GONORRHEA, AMPLIFIED (test code = NEGATIVE 94062) GC, AMPLIFIED, [id number] 00:00:00 Test Item Value Reference Range Interpretation Comments GONORRHEA, AMPLIFIED (test code = NEGATIVE 75869) HIV AB/AG COMBO RFLX [id number] 00:00:00 Test Item Value Reference Range Interpretation Comments HIV AB/AG COMBO RFLX CONF (test NON-REACTIVE code = 3514) HIV AB/AG COMBO RFLX [id number] 00:00:00 Test Item Value Reference Range Interpretation Comments HIV AB/AG COMBO RFLX CONF (test NON-REACTIVE code = 3514) [id number] 00:00:00 Test Item Value Reference Range Interpretation Comments RPR RESULT (test code = NON-REACTIVE 3501) RPR TITER (test code = 3500) NOT INDIC. TITER [id number] 00:00:00 Test Item Value Reference Range Interpretation Comments RPR RESULT (test code = NON-REACTIVE 3501) RPR TITER (test code = 3500) NOT INDIC. TITER [id number] 00:00:00 Test Item Value Reference Range Interpretation [...] INTERPRETATION HEPATITIS B: (NOTE) (test code = 17925) INTERPRETATION HEPATITIS C: (NOTE) (test code = 04506) HEPATITIS PROFILE (A,B,C)2015-06-24 00:00:00 Test Item Value [...] INTERPRETATION HEPATITIS B: (NOTE) (test code = 64945) INTERPRETATION HEPATITIS C: (NOTE) (test code = 29538) COMPREHENSIVE METABOLIC [id number] 00:00:00 Test Item Value Reference Range Interpretation Comments GLUCOSE (test code = 2217) 105 MG/DL BUN (test code = 2208) 11 MG/DL CREATININE (test code = 2214) 0.80 MG/DL eGFR AMER. (test code 109 ML/MIN/1.73 = 32137) eGFR NON- AMER. (test 94 ML/MIN/1.73 code = 29611) CALCULATED BUN/CREAT (test 14 RATIO code = [...] code = 2219) 14 U/L COMPREHENSIVE METABOLIC [id number] 00:00:00 Test Item Value Reference Range Interpretation Comments GLUCOSE (test code = 2217) 105 MG/DL BUN (test code = 2208) 11 MG/DL CREATININE (test code = 2214) 0.80 MG/DL eGFR AMER. (test code 109 ML/MIN/1.73 = 69004) eGFR NON- AMER. (test 94 ML/MIN/1.73 code = 94794) CALCULATED BUN/CREAT (test 14 RATIO code = [...] (test code = 2219) 14 U/L LIPID [id number] 00:00:00 Test Item Value Reference Range Interpretation Comments CHOLESTEROL (test code = 2210) 211 MG/DL TRIGLYCERIDES (test code = 2232) 209 MG/DL HDL CHOLESTEROL (test code = 2220) 38 MG/DL CALCULATED LDL CHOL (test code = 131 MG/DL 2237) RISK RATIO LDL/HDL (test code = 3.45 RATIO 2238) LIPID [id number] 00:00:00 Test Item Value Reference Range Interpretation Comments CHOLESTEROL (test code = 2210) 211 MG/DL TRIGLYCERIDES (test code = 2232) 209 MG/DL HDL CHOLESTEROL (test code = 2220) 38 MG/DL CALCULATED LDL CHOL (test code = 131 MG/DL 2237) RISK RATIO LDL/HDL (test code = 3.45 RATIO 2238) CBC W/AUTO [id number] 00:00:00 Test Item Value Reference Range Interpretation [...] code = 1015) 254 K/UL CBC W/AUTO [id number] 00:00:00 Test Item Value Reference Range Interpretation [...] code = 1015) 254 K/UL CBC W/AUTO [id number] 00:00:00 Test Item Value Reference Range Interpretation [...] (test code = 1015) 254 K/UL HEMOGLOBIN [id number] 00:00:00 Test Item Value Reference Range Interpretation Comments HEMOGLOBIN A1c (test code = 18245) 6.9 % HEMOGLOBIN [id number] 00:00:00 Test Item Value Reference Range Interpretation Comments HEMOGLOBIN A1c (test code = 71920) 6.9 % HEMOGLOBIN [id number] 00:00:00 Test Item Value Reference Range Interpretation Comments HEMOGLOBIN A1c (test code = 61663) 6.9 % [id number] 00:00:00 Test Item Value Reference Range Interpretation Comments TSH (test code = 2821) 0.5 UIU/ML [id number] 00:00:00 Test Item Value Reference Range Interpretation Comments TSH (test code = 2821) 0.5 UIU/ML [id number] 00:00:00 Test Item Value Reference Range Interpretation Comments TSH (test code = 2821) 0.5 UIU/ML HEPATITIS A IgM [REFLEX]2015-06-24 00:00:00 Test Item Value Reference Range Interpretation Comments HEPATITIS A IgM (test code = NON-REACTIVE 8) COMPREHENSIVE METABOLIC [id number] 00:00:00 Test Item Value Reference Range Interpretation Comments GLUCOSE (test code = 2217) 113 MG/DL BUN (test code = 2208) 22 MG/DL CREATININE (test code = 2214) 0.9 MG/DL eGFR AMER. (test code 85 ML/MIN/1.73 = 61897) eGFR NON- AMER. (test 70 ML/MIN/1.73 code = 23067) CALCULATED BUN/CREAT (test 24 RATIO code = [...] code = 2219) 24 U/L COMPREHENSIVE METABOLIC [id number] 00:00:00 Test Item Value Reference Range Interpretation Comments GLUCOSE (test code = 2217) 113 MG/DL BUN (test code = 2208) 22 MG/DL CREATININE (test code = 2214) 0.9 MG/DL eGFR AMER. (test code 85 ML/MIN/1.73 = 94900) eGFR NON- AMER. (test 70 ML/MIN/1.73 code = 68502) CALCULATED BUN/CREAT (test 24 RATIO code = [...] code = 2219) 24 U/L CBC W/AUTO [id number] 00:00:00 Test Item Value Reference Range Interpretation [...] code = 1015) 270 K/UL CBC W/AUTO [id number] 00:00:00 Test Item Value Reference Range Interpretation [...] code = 1015) 270 K/UL CBC W/AUTO [id number] 00:00:00 Test Item Value Reference Range Interpretation [...] (test code = 1015) 270 K/UL HEMOGLOBIN [id number] 00:00:00 Test Item Value Reference Range Interpretation Comments HEMOGLOBIN A1c (test code = 08295) 7.3 % HEMOGLOBIN [id number] 00:00:00 Test Item Value Reference Range Interpretation Comments HEMOGLOBIN A1c (test code = 44341) 7.3 % HEMOGLOBIN [id number] 00:00:00 Test Item Value Reference Range Interpretation Comments HEMOGLOBIN A1c (test code = 41240) 7.3 % COMPREHENSIVE METABOLIC [id number] 00:00:00 Test Item Value Reference Range Interpretation Comments GLUCOSE (test code = 2217) 113 MG/DL BUN (test code = 2208) 22 MG/DL CREATININE (test code = 2214) 0.9 MG/DL eGFR AMER. (test code 85 ML/MIN/1.73 = 23324) eGFR NON- AMER. (test 70 ML/MIN/1.73 code = 13839) CALCULATED BUN/CREAT (test 24 RATIO code = [...] code = 2219) 24 U/L COMPREHENSIVE METABOLIC [id number] 00:00:00 Test Item Value Reference Range Interpretation Comments GLUCOSE (test code = 2217) 113 MG/DL BUN (test code = 2208) 22 MG/DL CREATININE (test code = 2214) 0.9 MG/DL eGFR AMER. (test code 85 ML/MIN/1.73 = 61659) eGFR NON- AMER. (test 70 ML/MIN/1.73 code = 17700) CALCULATED BUN/CREAT (test 24 RATIO code = [...] code = 2219) 24 U/L CBC W/AUTO [id number] 00:00:00 Test Item Value Reference Range Interpretation [...] code = 1015) 270 K/UL CBC W/AUTO [id number] 00:00:00 Test Item Value Reference Range Interpretation [...] code = 1015) 270 K/UL CBC W/AUTO [id number] 00:00:00 Test Item Value Reference Range Interpretation [...] (test code = 1015) 270 K/UL HEMOGLOBIN [id number] 00:00:00 Test Item Value Reference Range Interpretation Comments HEMOGLOBIN A1c (test code = 54707) 7.3 % HEMOGLOBIN [id number] 00:00:00 Test Item Value Reference Range Interpretation Comments HEMOGLOBIN A1c (test code = 44938) 7.3 % HEMOGLOBIN [id number] 00:00:00 Test Item Value Reference Range Interpretation Comments HEMOGLOBIN A1c (test code = 20459) 7.3 % COMPREHENSIVE METABOLIC [id number] 00:00:00 Test Item Value Reference Range Interpretation Comments GLUCOSE (test code = 2217) 113 MG/DL BUN (test code = 2208) 22 MG/DL CREATININE (test code = 2214) 0.9 MG/DL eGFR AMER. (test code 85 ML/MIN/1.73 = 31630) eGFR NON- AMER. (test 70 ML/MIN/1.73 code = 56823) CALCULATED BUN/CREAT (test 24 RATIO code = [...] code = 2219) 24 U/L COMPREHENSIVE METABOLIC [id number] 00:00:00 Test Item Value Reference Range Interpretation Comments GLUCOSE (test code = 2217) 113 MG/DL BUN (test code = 2208) 22 MG/DL CREATININE (test code = 2214) 0.9 MG/DL eGFR AMER. (test code 85 ML/MIN/1.73 = 24471) eGFR NON- AMER. (test 70 ML/MIN/1.73 code = 83070) CALCULATED BUN/CREAT (test 24 RATIO code = [...] code = 2219) 24 U/L CBC W/AUTO [id number] 00:00:00 Test Item Value Reference Range Interpretation [...] code = 1015) 270 K/UL CBC W/AUTO [id number] 00:00:00 Test Item Value Reference Range Interpretation [...] code = 1015) 270 K/UL CBC W/AUTO [id number] 00:00:00 Test Item Value Reference Range Interpretation [...] (test code = 1015) 270 K/UL HEMOGLOBIN [id number] 00:00:00 Test Item Value Reference Range Interpretation Comments HEMOGLOBIN A1c (test code = 49775) 7.3 % HEMOGLOBIN [id number] 00:00:00 Test Item Value Reference Range Interpretation Comments HEMOGLOBIN A1c (test code = 33028) 7.3 % HEMOGLOBIN [id number] 00:00:00 Test Item Value Reference Range Interpretation Comments HEMOGLOBIN A1c (test code = 14821) 7.3 % COMPREHENSIVE METABOLIC [id number] 00:00:00 Test Item Value Reference Range Interpretation Comments GLUCOSE (test code = 2217) 113 MG/DL BUN (test code = 2208) 22 MG/DL CREATININE (test code = 2214) 0.9 MG/DL eGFR AMER. (test code 85 ML/MIN/1.73 = 33454) eGFR NON- AMER. (test 70 ML/MIN/1.73 code = 18521) CALCULATED BUN/CREAT (test 24 RATIO code = [...] code = 2219) 24 U/L COMPREHENSIVE METABOLIC [id number] 00:00:00 Test Item Value Reference Range Interpretation Comments GLUCOSE (test code = 2217) 113 MG/DL BUN (test code = 2208) 22 MG/DL CREATININE (test code = 2214) 0.9 MG/DL eGFR AMER. (test code 85 ML/MIN/1.73 = 99800) eGFR NON- AMER. (test 70 ML/MIN/1.73 code = 95632) CALCULATED BUN/CREAT (test 24 RATIO code = [...] code = 2219) 24 U/L CBC W/AUTO [id number] 00:00:00 Test Item Value Reference Range Interpretation [...] code = 1015) 270 K/UL CBC W/AUTO [id number] 00:00:00 Test Item Value Reference Range Interpretation [...] code = 1015) 270 K/UL CBC W/AUTO [id number] 00:00:00 Test Item Value Reference Range Interpretation [...] (test code = 1015) 270 K/UL HEMOGLOBIN [id number] 00:00:00 Test Item Value Reference Range Interpretation Comments HEMOGLOBIN A1c (test code = 53657) 7.3 % HEMOGLOBIN [id number] 00:00:00 Test Item Value Reference Range Interpretation Comments HEMOGLOBIN A1c (test code = 31848) 7.3 % HEMOGLOBIN [id number] 00:00:00 Test Item Value Reference Range Interpretation Comments HEMOGLOBIN A1c (test code = 24499) 7.3 % COMPREHENSIVE METABOLIC [id number] 00:00:00 Test Item Value Reference Range Interpretation Comments GLUCOSE (test code = 2217) 113 MG/DL BUN (test code = 2208) 22 MG/DL CREATININE (test code = 2214) 0.9 MG/DL eGFR AMER. (test code 85 ML/MIN/1.73 = 48974) eGFR NON- AMER. (test 70 ML/MIN/1.73 code = 26505) CALCULATED BUN/CREAT (test 24 RATIO code = [...] code = 2219) 24 U/L COMPREHENSIVE METABOLIC [id number] 00:00:00 Test Item Value Reference Range Interpretation Comments GLUCOSE (test code = 2217) 113 MG/DL BUN (test code = 2208) 22 MG/DL CREATININE (test code = 2214) 0.9 MG/DL eGFR AMER. (test code 85 ML/MIN/1.73 = 50500) eGFR NON- AMER. (test 70 ML/MIN/1.73 code = 20481) CALCULATED BUN/CREAT (test 24 RATIO code = [...] code = 2219) 24 U/L CBC W/AUTO [id number] 00:00:00 Test Item Value Reference Range Interpretation [...] code = 1015) 270 K/UL CBC W/AUTO [id number] 00:00:00 Test Item Value Reference Range Interpretation [...] code = 1015) 270 K/UL CBC W/AUTO [id number] 00:00:00 Test Item Value Reference Range Interpretation [...] (test code = 1015) 270 K/UL HEMOGLOBIN [id number] 00:00:00 Test Item Value Reference Range Interpretation Comments HEMOGLOBIN A1c (test code = 14749) 7.3 % HEMOGLOBIN [id number] 00:00:00 Test Item Value Reference Range Interpretation Comments HEMOGLOBIN A1c (test code = 62618) 7.3 % HEMOGLOBIN [id number] 00:00:00 Test Item Value Reference Range Interpretation Comments HEMOGLOBIN A1c (test code = 65024) 7.3 % COMPREHENSIVE METABOLIC [id number] 00:00:00 Test Item Value Reference Range Interpretation Comments GLUCOSE (test code = 2217) 113 MG/DL BUN (test code = 2208) 22 MG/DL CREATININE (test code = 2214) 0.9 MG/DL eGFR AMER. (test code 85 ML/MIN/1.73 = 44720) eGFR NON- AMER. (test 70 ML/MIN/1.73 code = 61082) CALCULATED BUN/CREAT (test 24 RATIO code = [...] code = 2219) 24 U/L COMPREHENSIVE METABOLIC [id number] 00:00:00 Test Item Value Reference Range Interpretation Comments GLUCOSE (test code = 2217) 113 MG/DL BUN (test code = 2208) 22 MG/DL CREATININE (test code = 2214) 0.9 MG/DL eGFR AMER. (test code 85 ML/MIN/1.73 = 34544) eGFR NON- AMER. (test 70 ML/MIN/1.73 code = 60816) CALCULATED BUN/CREAT (test 24 RATIO code = [...] code = 2219) 24 U/L CBC W/AUTO [id number] 00:00:00 Test Item Value Reference Range Interpretation [...] code = 1015) 270 K/UL CBC W/AUTO [id number] 00:00:00 Test Item Value Reference Range Interpretation [...] code = 1015) 270 K/UL CBC W/AUTO [id number] 00:00:00 Test Item Value Reference Range Interpretation [...] (test code = 1015) 270 K/UL HEMOGLOBIN [id number] 00:00:00 Test Item Value Reference Range Interpretation Comments HEMOGLOBIN A1c (test code = 13408) 7.3 % HEMOGLOBIN [id number] 00:00:00 Test Item Value Reference Range Interpretation Comments HEMOGLOBIN A1c (test code = 47250) 7.3 % HEMOGLOBIN [id number] 00:00:00 Test Item Value Reference Range Interpretation Comments HEMOGLOBIN A1c (test code = 03023) 7.3 % COMPREHENSIVE METABOLIC [id number] 00:00:00 Test Item Value Reference Range Interpretation Comments GLUCOSE (test code = 2217) 113 MG/DL BUN (test code = 2208) 22 MG/DL CREATININE (test code = 2214) 0.9 MG/DL eGFR AMER. (test code 85 ML/MIN/1.73 = 30449) eGFR NON- AMER. (test 70 ML/MIN/1.73 code = 88662) CALCULATED BUN/CREAT (test 24 RATIO code = [...] code = 2219) 24 U/L COMPREHENSIVE METABOLIC [id number] 00:00:00 Test Item Value Reference Range Interpretation Comments GLUCOSE (test code = 2217) 113 MG/DL BUN (test code = 2208) 22 MG/DL CREATININE (test code = 2214) 0.9 MG/DL eGFR AMER. (test code 85 ML/MIN/1.73 = 75332) eGFR NON- AMER. (test 70 ML/MIN/1.73 code = 60351) CALCULATED BUN/CREAT (test 24 RATIO code = [...] code = 2219) 24 U/L CBC W/AUTO [id number] 00:00:00 Test Item Value Reference Range Interpretation [...] code = 1015) 270 K/UL CBC W/AUTO [id number] 00:00:00 Test Item Value Reference Range Interpretation [...] code = 1015) 270 K/UL CBC W/AUTO [id number] 00:00:00 Test Item Value Reference Range Interpretation [...] (test code = 1015) 270 K/UL HEMOGLOBIN [id number] 00:00:00 Test Item Value Reference Range Interpretation Comments HEMOGLOBIN A1c (test code = 70968) 7.3 % HEMOGLOBIN [id number] 00:00:00 Test Item Value Reference Range Interpretation Comments HEMOGLOBIN A1c (test code = 54248) 7.3 % HEMOGLOBIN [id number] 00:00:00 Test Item Value Reference Range Interpretation Comments HEMOGLOBIN A1c (test code = 12204) 7.3 % COMPREHENSIVE METABOLIC [id number] 00:00:00 Test Item Value Reference Range Interpretation Comments GLUCOSE (test code = 2217) 113 MG/DL BUN (test code = 2208) 22 MG/DL CREATININE (test code = 2214) 0.9 MG/DL eGFR AMER. (test code 85 ML/MIN/1.73 = 58512) eGFR NON- AMER. (test 70 ML/MIN/1.73 code = 80641) CALCULATED BUN/CREAT (test 24 RATIO code = [...] code = 2219) 24 U/L CBC W/AUTO [id number] 00:00:00 Test Item Value Reference Range Interpretation [...] code = 1015) 270 K/UL CBC W/AUTO [id number] 00:00:00 Test Item Value Reference Range Interpretation [...] (test code = 1015) 270 K/UL HEMOGLOBIN [id number] 00:00:00 Test Item Value Reference Range Interpretation Comments HEMOGLOBIN A1c (test code = 48012) 7.3 % HEMOGLOBIN [id number] 00:00:00 Test Item Value Reference Range Interpretation Comments HEMOGLOBIN A1c (test code = 18113) 7.3 % COMPREHENSIVE METABOLIC [id number] 00:00:00 Test Item Value Reference Range Interpretation Comments GLUCOSE (test code = 2217) 113 MG/DL BUN (test code = 2208) 22 MG/DL CREATININE (test code = 2214) 0.9 MG/DL eGFR AMER. (test code 85 ML/MIN/1.73 = 31106) eGFR NON- AMER. (test 70 ML/MIN/1.73 code = 26648) CALCULATED BUN/CREAT (test 24 RATIO code = [...] code = 2219) 24 U/L COMPREHENSIVE METABOLIC [id number] 00:00:00 Test Item Value Reference Range Interpretation Comments GLUCOSE (test code = 2217) 113 MG/DL BUN (test code = 2208) 22 MG/DL CREATININE (test code = 2214) 0.9 MG/DL eGFR AMER. (test code 85 ML/MIN/1.73 = 02234) eGFR NON- AMER. (test 70 ML/MIN/1.73 code = 26817) CALCULATED BUN/CREAT (test 24 RATIO code = [...] code = 2219) 24 U/L CBC W/AUTO [id number] 00:00:00 Test Item Value Reference Range Interpretation [...] code = 1015) 270 K/UL CBC W/AUTO [id number] 00:00:00 Test Item Value Reference Range Interpretation [...] code = 1015) 270 K/UL CBC W/AUTO [id number] 00:00:00 Test Item Value Reference Range Interpretation [...] (test code = 1015) 270 K/UL HEMOGLOBIN [id number] 00:00:00 Test Item Value Reference Range Interpretation Comments HEMOGLOBIN A1c (test code = 18858) 7.3 % HEMOGLOBIN [id number] 00:00:00 Test Item Value Reference Range Interpretation Comments HEMOGLOBIN A1c (test code = 22409) 7.3 % HEMOGLOBIN [id number] 00:00:00 Test Item Value Reference Range Interpretation Comments HEMOGLOBIN A1c (test code = 28199) 7.3 % COMPREHENSIVE METABOLIC [id number] 00:00:00 Test Item Value Reference Range Interpretation Comments GLUCOSE (test code = 2217) 113 MG/DL BUN (test code = 2208) 22 MG/DL CREATININE (test code = 2214) 0.9 MG/DL eGFR AMER. (test code 85 ML/MIN/1.73 = 93199) eGFR NON- AMER. (test 70 ML/MIN/1.73 code = 90673) CALCULATED BUN/CREAT (test 24 RATIO code = [...] code = 2219) 24 U/L COMPREHENSIVE METABOLIC [id number] 00:00:00 Test Item Value Reference Range Interpretation Comments GLUCOSE (test code = 2217) 113 MG/DL BUN (test code = 2208) 22 MG/DL CREATININE (test code = 2214) 0.9 MG/DL eGFR AMER. (test code 85 ML/MIN/1.73 = 06180) eGFR NON- AMER. (test 70 ML/MIN/1.73 code = 30593) CALCULATED BUN/CREAT (test 24 RATIO code = [...] code = 2219) 24 U/L CBC W/AUTO [id number] 00:00:00 Test Item Value Reference Range Interpretation [...] code = 1015) 270 K/UL CBC W/AUTO [id number] 00:00:00 Test Item Value Reference Range Interpretation [...] code = 1015) 270 K/UL CBC W/AUTO [id number] 00:00:00 Test Item Value Reference Range Interpretation [...] (test code = 1015) 270 K/UL HEMOGLOBIN [id number] 00:00:00 Test Item Value Reference Range Interpretation Comments HEMOGLOBIN A1c (test code = 33317) 7.3 % HEMOGLOBIN [id number] 00:00:00 Test Item Value Reference Range Interpretation Comments HEMOGLOBIN A1c (test code = 11128) 7.3 % HEMOGLOBIN [id number] 00:00:00 Test Item Value Reference Range Interpretation Comments HEMOGLOBIN A1c (test code = 72361) 7.3 % COMPREHENSIVE METABOLIC [id number] 00:00:00 Test Item Value Reference Range Interpretation Comments GLUCOSE (test code = 2217) 113 MG/DL BUN (test code = 2208) 22 MG/DL CREATININE (test code = 2214) 0.9 MG/DL eGFR AMER. (test code 85 ML/MIN/1.73 = 42742) eGFR NON- AMER. (test 70 ML/MIN/1.73 code = 45122) CALCULATED BUN/CREAT (test 24 RATIO code = [...] code = 2219) 24 U/L COMPREHENSIVE METABOLIC [id number] 00:00:00 Test Item Value Reference Range Interpretation Comments GLUCOSE (test code = 2217) 113 MG/DL BUN (test code = 2208) 22 MG/DL CREATININE (test code = 2214) 0.9 MG/DL eGFR AMER. (test code 85 ML/MIN/1.73 = 05241) eGFR NON- AMER. (test 70 ML/MIN/1.73 code = 28481) CALCULATED BUN/CREAT (test 24 RATIO code = [...] code = 2219) 24 U/L CBC W/AUTO [id number] 00:00:00 Test Item Value Reference Range Interpretation [...] code = 1015) 270 K/UL CBC W/AUTO [id number] 00:00:00 Test Item Value Reference Range Interpretation [...] code = 1015) 270 K/UL CBC W/AUTO [id number] 00:00:00 Test Item Value Reference Range Interpretation [...] (test code = 1015) 270 K/UL HEMOGLOBIN [id number] 00:00:00 Test Item Value Reference Range Interpretation Comments HEMOGLOBIN A1c (test code = 49926) 7.3 % HEMOGLOBIN [id number] 00:00:00 Test Item Value Reference Range Interpretation Comments HEMOGLOBIN A1c (test code = 98202) 7.3 % HEMOGLOBIN [id number] 00:00:00 Test Item Value Reference Range Interpretation Comments HEMOGLOBIN A1c (test code = 81413) 7.3 % Notes Date/Time Note Provider Source 2023-02-17 16:33:36 [id number]:33:36Formatting Shanika Segal of this note might be different Clinic from the original.Patient here for c/o chronic, severe yeast infection with burning and pain. She was seen in the ER last 02/09/23, [facility] [address]-2Uceff WoahQZ6593-14-34Q68:34:36Nurse [id number]. 2.7.2.358280|[id number] for patient ohot78748-2Lgvps [id number] L Knox LVNCorewell Health Big Rapids HospitalChloe Tzkalx[address] [facility] [id number] 57ODPV2302-16-02V59:34:361.2.84 0.449648.1.72.3.15|1.2.840.1143 50.1.13.131.2.7.2.727879_360729 926 2021-08-02 21:55:00 [id number]:55:00 [facility] Operative NoteREPORT#:[id number] REPORT STATUS: SignedDATE:08/02/21 TIME: 2154 PATIENT: MARGE FRANCO UNIT #: [id number]#: [id number] ROOM/BED:: 78 AGE: 41 SEX: F ATTEND: Bebeto Quiroga [facility] AUTHOR: Bebeto Quiroga MD * ALL edits or amendments must be made on the electronic/computer document * Operative Report Operative NoteNote:DATE OF SERVICE: 07/31/21 PREOPERATIVE DIAGNOSIS: left volar wrist ganglion cystPOSTOPERATIVE DIAGNOSIS: left volar wrist ganglion cystOPERATION PERFORMED: left volar wrist ganglion cyst excision SURGEON: Bebeto Arellano SURGEON: Diaz simmons ANESTHESIA: general with localCOMPLICATIONS: None. ESTIMATED BLOOD LOSS: MinimalTOURNIQUET TIME: 20 minutes at 250 mmHg FINDINGS: volar ganglion cyst stemming from radiocarpal joint INDICATIONS: Ms Franco is a 41 year old female with left volar wrist ganglion cyst that has been recalcitrant to conservative treatment options. It is causingthe patient pain. The patient wishes to proceed with surgical release. Risks, benefits, and alternatives to the procedure were discussed with the patient in detail preoperatively. Risks include, but not limited to, infection, damage to blood vessels or nerves, stiffness of fingers, thumb, and wrist, and need for further surgery. Patient verbalized understanding of these risk and consented toproceed. OPERATIVE NOTE: The patient was identified in the preoperative holding area and the correct surgical site was marked. Patient was then brought to the Operating Room where a formal time-out was performed to confirm the correct patient, site,and planned operation. Monitored anesthesia care was provided by the anesthesiateam. A well padded tourniquet was placed on the upper arm. Patient was then prepped and draped in the usual sterile fashion. The arm was then exsanguinated and tourniquet inflated. A longitudinal incision was made over the ganglion cyst. Dissection was performed around the ganglion cyst. Neurovascular structures were protected throughout the case. The cyst itself was punctured and gelatinous material was extruded. Dissection around the cyst was performed. The stalk was found in theradiocarpal joint and the capsule was incised. The stalk was truncated sharply. Electrocautery was used to cauterize the base. The capsule was closed with Vicryl sutures. The skin was closed in layers using subcuticular Vicryl suture and running Monocryl suture. Dermabond was used over the top. The patient was placed into a short arm splint. The patient tolerated procedure well without complications. The tourniquet was deflated and the patient had brisk cap refill 5. at [address] [facility] #:[id number] OF REPORT OPOperative [id number]:55:00Y.PDOC [id number] for patient [id number] :56:54 2020-02-13 22:19:00 [id number] HCATO [id number]:[id number] [facility] [address] [place] [address] PATIENT NAME: Marge Franco ADMIT DATE: 02/13/20ACCOUNT NO: [id number] ROOM NO: AGE: 40 REPORT TYPE: HISTORY AND PHYSICAL SEX: F ADMITTING PHYSICIAN: ATTENDING PHYSICIAN:Judi Hodge DO ADMISSION DATE: 02/13/2020 HISTORY OF PRESENT ILLNESS: The patient is a 40-year-old female who is statuspost a right posterior tibial tendon reconstruction with debridement on01/16/2020 at [facility]. Today, she was walking the stairs,felt a pop on the back of her operative leg in the Achilles area and feltsignificant pain. She was brought to [facility] for evaluation. Presently in [facility], sheis in significant pain and is poorly tolerating most exams. PAST MEDICAL HISTORY: Diabetes type 2, last A1c 9.0; supraventriculartachycardia; hypertension; hypercholesterolemia. PAST SURGICAL HISTORY: Posterior tibial tendon reconstruction on 01/16/2020with Dr. Wilson, pacemaker placement. FAMILY HISTORY: None. SOCIAL HISTORY: Nonsmoker, social drinker. CURRENT MEDICATIONS: Insulin, metformin, glimepiride, gabapentin,hydrochlorothiazide, Victoza, lisinopril and Tresiba. PHYSICAL EXAMINATION:VITAL SIGNS: Blood pressure 113/87, temperature 98.9, pulse 91, [id number], 98% on room air.HEENT: No mass or deformity.HEART: Normal rate and rhythm. No murmurs, gallops, or rubs.LUNGS: Clear to auscultation.ABDOMEN: No masses or tenderness.EXTREMITIES: Swelling about the Achilles tendon posteriorly on the right side,extremely tender to palpation and truly unable to tolerate a Lau's test.NEUROLOGIC: She is grossly neurologically intact. The right foot with positiveEHL, TS, but unable to truly perform gastrocsoleus plantarflexion due tosignificant pain; however, she is able to fire her FDL and FHL. She hassensation intact to light touch in superficial peroneal, deep peroneal, andtibial nerves. She has 2+ dorsalis pedis and posterior tibialis pulses. IMAGING: Three views of the right foot and right ankle revealed no fracture ordislocation. CLINICAL IMPRESSION: Right complete versus partial Achilles tendon rupture. PATIENT NAME: Marge Franco PLAN: At this point in time, we explained to the patient that due to part ofthe ____ reconstruction procedure, she did receive a percutaneous Achillestendon lengthening. In very rare occasions, these lengthenings can result incomplete rupture in the postoperative period and I do feel that this happenedtoday. We will place her into a plantarflexion splint. She does understand shemay be in a foam-based wedge boot. She is to follow up with Dr. Wilson in themorning. She is aware she may or may not receive an MRI and may or may notreceive surgery depending on the conversation that Dr. Wilson and her have. Dictated By: Judi Hodge DO WT: HP:DANY/NEYMAR/NTSDD: 02/13/2020 22:19:01DT: 02/13/2020 22:48:31Conf#: [id number]/MAURICIO#: [id number] by Judi Hodge DO On 03/17/2020 07:57:56 AM at 0758 PATIENT NAME: Marge Franco and physical [id number]:48:00Y .[id number] for patient [id number] :58:28 2020-01-16 12:10:00 [id number] HCATO 2:10:[id number] [facility] [place] [id number] PATIENT NAME: MARGE FRANCO ADMIT DATE: 01/16/20ACCOUNT NO: [id number] ROOM NO: AGE: 39 REPORT TYPE: OPERATIVE REPORT SEX: F ADMITTING PHYSICIAN: ATTENDING PHYSICIAN:Elbert Wilson MD OPERATION DATE: 01/16/2020 PREOPERATIVE DIAGNOSES: 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 PROCEDURES PERFORMED: Right posterior tibial tendon debridement and repair withadvancement, spring and deltoid ligament plication, medial navicularexostectomy, and percutaneous Achilles lengthening. SURGEON: Elbert Wilson MD MEASUREMENT PSYCHOLOGIST: LINDSAY Palma ANESTHESIA: General LMA with intraoperative ankle block performed using 30 mLof 0.5% bupivacaine. IMPLANTS USED: A small Arthrex anchor was placed. PREOPERATIVE INDICATIONS: Ms. Franco is a 39-year-old with multiple priorissues including some chronic pain for which she has a pain pump in place. Shesustained an injury to her right ankle and experienced some protracted symptomsalong the distal aspect of her posterior tibial tendon. She is unable to get anMRI due to her pain pump in place. She also had a surgical scar in this regionfrom a prior procedure performed elsewhere. A CT scan was performed that showedsignificant thickening within the distal aspect of her posterior tibial tendonand some calcifications within its insertion concerning for chronic tendinosisand a likely distal tear. She otherwise does not have a flat arch. I,therefore, recommended debridement and possible repair with advancement, and sheunderstood that a calcaneal osteotomy would only be necessary if flexordigitorum longus transfer was necessary. She has also had a very tight Achillesand understood percutaneous Achilles lengthening would be beneficial to enhanceher rehabilitation. She understood risks and benefits and consented to proceed. PROCEDURE IN DETAIL: Ms. Franco was met and greeted in the preoperativeholding area by me, anesthesia, and the OR staff. She was deemed appropriate toproceed. I marked her right foot prior to entering the OR suite. Once in theoperating room, she was placed supine on the table, and general anesthesia wasinduced. A well-padded thigh tourniquet was placed but not yet inflated. Footand ankle were scrubbed with alcohol and then ChloraPrep solution. Once PATIENT NAME: MARGE FRANCO appropriately draped, timeout was completed. Foot and ankle were exsanguinatedand tourniquet inflated. Her maximal dorsiflexion was less than 10 degrees withher knee extended and hindfoot inverted. Small percutaneous incisions weremade, 2 lateral, 1 medial, and I was then able to dorsiflex to 25 degrees. Oncethis was complete, her prior medial longitudinal incision was incised andextended some additionally on the proximal aspect. A cautery was used forsuperficial hemostasis, and a flexor sheath and flexor retinaculum werelongitudinally incised. A tenosynovectomy was performed of her posterior tibialtendon that had good excursion proximally. The majority of her tendonproximally was in excellent condition. She did have significant tendinosis atthe level of the insertion with an intrasubstance tear at the distal attachment. This was all sharply debrided. I then mobilized her tendon off her veryprominent navicular tuberosity. A TPS saw was used to perform an exostectomy ofher very prominent medial navicular tubercle leaving the attachments for hernavicular cuneiform joint capsule as well as her spring ligament proximally. Once this was complete, she also had some attenuation within her spring anddeltoid ligaments that were plicated with #2 FiberWire [id number] sutures. Once this was complete, a small Arthrex anchor was placed within the medialnavicular and the mid aspect of the bony bed created by the exostectomy. I thenadvanced her posterior tibial tendon down to bone. After tying down to theanchor, additional purchase was placed from the tendon through one bony tunneland adjacent joint capsule to improve the contour of the tendon at the level ofits insertion. Wound was copiously irrigated. The flexor sheath andretinaculum were approximated with running 2-0 Vicryl. Dermal layer wasapproximated with buried 3-0 Monocryl. Skin was closed with alternating 3-0nylon horizontal mattress and simple sutures. An ankle block was performed in astandard fashion. Skin was cleansed and dried, dressed with Xeroform, 4x4s,ABD, sterile cast padding, and a well-padded short-leg splint was applied,secured with a 4-inch and 6-inch Jordon wrap. The patient was aroused fromanesthesia in stable condition. All counts were correct. There were nocomplications. Dictated By: Elbert Wilson MD WT: OP:Y.FELECIA/JENNY/GMDD: 01/16/2020 12:10:35DT: 01/16/2020 13:17:18Conf#: [id number]/DID#: [id number] Authenticated by lEbert Wilson MD On 01/19/2020 06:47:49 AM at 0648 PATIENT NAME: MARGE FRANCO [id number]:17:00Y.[facility] [id number] for patient [id number] :48:15"
[2023-06-08] MEDS ORDERED: HYDROCODONE/APAP 5/325 MG TAB ONE (23:17)
[2023-06-08 23:52] LABS: Absolute Lymphocytes (CBC) 2.5 K/uL (0.7-4.9); Hematocrit 17.8 % (36.0-45.0); Lymphocytes % 18.5 % (15.3-44.8); MCV 87.8 fL (80-100); MPV 6.5 fL (7.6-11.3); Platelets 464 thou/uL (152-406); RBC Red Blood Cell Count 2.03 M/uL (3.86-4.86)
[2023-06-09 00:08] LABS: Magnesium 2.4 mg/dL (1.6-2.4); Potassium 4.1 mEq/L (3.5-5.1); Troponin High Sensitivity 3.2 pg/mL (<58.9)
[2023-06-09 00:44] LABS: RBC Red Blood Cell Count 2.04 M/uL (3.86-4.86)
--- NOTE | 2023-06-09 00:55 | ER ---
Nurse's Notes [facility] Name: Valentina Franco Age: 43 yrs Sex: Female : 1980 Arrival Date: 06/08/2023 Time: 20:10 Bed 8 Private MD: Diagnosis: Anemia, unspecified Presentation: 06/08 21:57 Chief complaint: Patient states: GOT BBL AND FACIAL SURGERY LAST TUESDAY. IN PAIN, jj7 DIZZINESS AND SYNCOPE. Coronavirus screen: At this time, the client does not indicate any symptoms associated with coronavirus-19. Ebola Screen: No symptoms or risks identified at this time. Initial Sepsis Screen: Does the patient meet any 2 criteria? HR > 90 bpm. Does the patient have a suspected source of infection? No. Patient's initial sepsis screen is negative. Risk Assessment: Do you want to hurt yourself or someone else? Patient reports no desire to harm self or others. Note MOTRIN 5P. 21:57 Method Of Arrival: Wheelchair [facility] 21:57 Acuity: CYNTHIA 3 jj7 06/09 02:22 Onset of symptoms was June 09, 2023. rv Triage Assessment: 06/08 22:04 General: Appears distressed, uncomfortable, Behavior is calm, cooperative, crying. jj7 Pain: Complains of pain in face AND WHOLE BODY. 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 - Social history:: Smoking status: Patient denies any tobacco usage or history of. Patient/guardian denies using alcohol, street drugs. Screenin:05 [facility] ED Fall Risk Assessment (Adult) History of falling in the last 3 months, jj7 including since admission No falls in past 3 months (0 pts) Confusion or Disorientation No (0 pts) Intoxicated or Sedated No (0 pts) Impaired Gait No (0 pts) Mobility Assist Device Used Altered Elimination No (0 pt) Score/Fall Risk Level 0 - 2 = Low Risk Oriented to surroundings, Maintained a safe environment, Educated pt \T\ family on fall prevention, incl call for assistance when getting out of bed. Abuse screen: Denies threats or abuse. Nutritional screening: No deficits noted. Tuberculosis screening: No symptoms or risk factors identified. Assessment: 22:05 Reassessment: SEE TRIAGE ASSESSMENT. j Vital Signs: 21:57 BP 102 / 66; Pulse 109; Resp 20; Temp 99.1; Pulse Ox 100% ; Weight 93.89 kg; Height 5 j7 ft. 4 in. ; Pain 10/10; 23:00 BP 97 / 60; Pulse 101; Resp 20; Pulse Ox 100% ; jj7 06/09 00:00 BP 112 / 68; Pulse 102; Resp 19; Pulse Ox 96% ; j7 02:22 BP 106 / 72; Pulse 95; Resp 18; Temp 98; Pulse Ox 100% ; rv 06/08 21:57 Body Mass Index 35.53 (93.89 kg, 162.56 cm) j7 06/08 21:57 Pain Scale: Adult [facility] Coma Score: 02:22 Eye Response: spontaneous(4). Motor Response: obeys commands(6). Verbal Response: rv oriented(5). Total: 15. ED Course: 06/08 20:57 Patient arrived in ED. jj6 21:58 Amy Dill is Attending Physician. ci 22:03 Triage completed. jj7 22:04 Arm band placed on right wrist. jj7 22:05 Patient has correct armband on for positive identification. Bed in low position. Call jj7 light in reach. Side rails up X2. Adult w/ patient. Warm blanket given. 22:33 Shorty Smith, PETE is Primary Nurse. rv 23:00 Radiology exam delayed due to test not completed at this time. IV insertion eh4 attempt and/or patient not having appropriate IV at this time. 06/09 00:13 Radiology exam delayed due to test not completed at this time. eh4 00:30 No provider procedures requiring assistance completed. Inserted saline lock: 20 gauge rv in right antecubital area, using aseptic technique. Blood collected. Patient admitted, IV remains in place. 00:34 Type And Screen Sent. jj7 00:44 TRANSFERRIN SAT/IRON BINDING Sent. jj 00:44 Ferritin Sent. jj 00:44 Retic Count Sent. jj 00:44 Iron Level Sent. j 00:44 TIBC Sent. 00:44 B12 Sent. jj 00:44 Type And Screen Sent. j 00:51 Geovany Haskins MD is Hospitalizing Provider. ci Administered Medications: 06/08 23:17 Drug: HYDROcodone-acetaminophen PO 5 mg-325 mg 1 tabs PO once Route: PO; rv 06/09 02:23 Follow up: Response: No adverse reaction rv 01:57 Drug: Ondansetron IVP 4 mg IVP once; over 2 minutes Route: IVP; Site: right antecubital;jj7 02:23 Follow up: Response: No adverse reaction rv 02:57 Drug: metoCLOPramide IVP 10 mg IVP once; over 1 to 2 minutes Route: IVP; Site: right rv antecubital; Medication: 02:22 VIS not applicable for this client. rv Outcome: 00:54 Decision to Hospitalize by Provider. ci 02:21 Admitted to ER Hold. Please see [facility] for further documentation. rv 02:21 Instructed on the need for admit, 02:22 Condition: good rv 16:03 Patient left the ED. ph Signatures: Mary Alice Padron, RN RN Shorty Smith RN RN rv Alivia Salguero jj6 Cleve Padron 4 Curt Mayberry RN RN jj7 Amy Dill ci Corrections: (The following items were deleted from the chart) 00:46 00:44 Antibody Screen drawn and sent. jj7 EDMS 00:46 00:44 ABO/RH typing drawn and sent. jj7 EDMS
--- NOTE | 2023-06-09 00:55 | EDPHYS ---
Physician Documentation [facility] Name: Valentina Franco Age: 43 yrs Sex: Female : 1980 Arrival Date: 06/08/2023 Time: 20:10 Bed 8 Private MD: ED Physician Amy Dill HPI: 06/08 22:39 This 43 yrs old Female presents to ER via Wheelchair with complaints of ci syncope, dizziness. 22:39 Patient is a 43-year-old female with PMH diabetes, hypertriglyceridemia who ci presents to the ED with chief complaint of dizziness, syncope that began a few days ago. She is s/p BBL, chin liposuction by Dr. Levin in [place] on 05/31/2023. Patient reports that she hears ringing in the ears, her heart starts pounding and she passes out. Has had pain around her surgical site which she was told is to be expected, has been taking ibuprofen which seems to relieve pain. She currently denies chest pain, palpitations, shortness of breath. Endorses generalized weakness.. 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 - Social history:: Smoking status: Patient denies any tobacco usage or history of. Patient/guardian denies using alcohol, street drugs. ROS: 22:39 Constitutional: Positive for fatigue, Negative for body aches, fever, poor PO intake, ci 22:39 Cardiovascular: Positive for Negative for chest pain, edema, orthopnea, palpitations, paroxysmal nocturnal dyspnea, 22:39 Respiratory: Negative for cough, dyspnea on exertion, shortness of breath, sputum production, wheezing, 22:39 Neuro: Positive for dizziness, syncope, tinnitus, 06/09 00:54 Eyes: Negative for injury, pain, redness, and discharge, ENT: Negative for injury, ci pain, and discharge, Neck: Negative for injury, pain, and swelling, Abdomen/GI: Negative for abdominal pain, nausea, vomiting, diarrhea, and constipation, Exam: 00:22 Constitutional: This is a well developed, well nourished patient who is awake, alert, ci and in no acute distress. Head/Face: Normocephalic, atraumatic. Eyes: Pupils equal round and reactive to light, extra-ocular motions intact. Lids and lashes normal. Conjunctiva and sclera are non-icteric and not injected. Cornea within normal limits. Periorbital areas with no swelling, redness, or edema. ENT: Nares patent. No nasal discharge, no septal abnormalities noted. Tympanic membranes are normal and external auditory canals are clear. Oropharynx with no redness, swelling, or masses, exudates, or evidence of obstruction, uvula midline. Mucous membranes moist. Neck: Trachea midline, no thyromegaly or masses palpated, and no cervical lymphadenopathy. Supple, full range of motion without nuchal rigidity, or vertebral point tenderness. No Meningismus. Chest/axilla: Normal chest wall appearance and motion. Nontender with no deformity. No lesions are appreciated. Cardiovascular: Slightly tachycardic, regular with a normal S1 and S2. No gallops, murmurs, or rubs. Normal PMI, no JVD. No pulse deficits. Respiratory: Lungs have equal breath sounds bilaterally, clear to auscultation and percussion. No rales, rhonchi or wheezes noted. No increased work of breathing, no retractions or nasal flaring. Abdomen/GI: Soft, non-tender, with normal bowel sounds. No distension or tympany. No guarding or rebound. No evidence of tenderness throughout. Back: No spinal tenderness. No costovertebral tenderness. Full range of motion. Skin: Warm, dry with normal turgor. Pale. No rashes, no lesions, and no evidence of cellulitis. MS/ Extremity: Pulses equal, no cyanosis. Neurovascular intact. Full, normal range of motion. Neuro: Awake and alert, GCS 15, oriented to person, place, time, and situation. Cranial nerves II-XII grossly intact. Motor strength 5/5 in all extremities. Sensory grossly intact. Cerebellar exam normal. Normal gait. Psych: Awake, alert, with orientation to person, place and time. Behavior, mood, and affect are within normal limits. Vital Signs: 06/08 21:57 BP 102 / 66; Pulse 109; Resp 20; Temp 99.1; Pulse Ox 100% ; Weight 93.89 kg; Height 5 [facility] ft. 4 in. ; Pain 10/10; 23:00 BP 97 / 60; Pulse 101; Resp 20; Pulse Ox 100% ; jj7 06/09 00:00 BP 112 / 68; Pulse 102; Resp 19; Pulse Ox 96% ; [facility] 02:22 BP 106 / 72; Pulse 95; Resp 18; Temp 98; Pulse Ox 100% ; rv 06/08 21:57 Body Mass Index 35.53 (93.89 kg, 162.56 cm) [facility] 06/08 21:57 Pain Scale: Adult [facility] [place] Coma Score: 02:22 Eye Response: spontaneous(4). Motor Response: obeys commands(6). Verbal Response: rv oriented(5). Total: 15. MDM: 06/08 21:59 Patient medically screened. ci 23:21 Awaiting: labs results, CT scan results. ci 06/09 00:22 ED course: Patient noted to have hemoglobin of 5.7. She tells me that hemoglobin prior ci to surgery was 13. Symptoms likely due to symptomatic anemia, will type and cross for 2 units PRBC. Iron studies obtained. Will admit for further management.. 00:22 Differential Diagnosis Symptomatic anemia, PE, dehydration, syncope. Data reviewed: ci vital signs, nurses notes, lab test result(s), EKG. Consideration of Admission/Observation Patient was admitted/placed on observation. Management of patient was discussed with the following: Hospitalist: Hospitalist. Independent interpretation of the following test(s) in the Emergency Department EKG: See my EKG interpretation above. Care significantly affected by the following chronic conditions: Diabetes, Hyperlipidemia. Awaiting: CT scan results. Consent for treatment: Risk, benefits, and alternatives discussed with Pt/guardian concerning: Blood Transfusion. 04:18 ED course: CT PE study was obtained due to history of syncope s/p surgery. CT PE study ci limited due to motion artifact but no central or segmental PE.. 04:21 ED course: Critical care time: I have personally spent 35 minutes of critical care ci time, exclusive of time spent on any procedures, in evaluation and management of this critically ill patient's condition of symptomatic anemia. I provided the following critical care treatment blood transfusion. . 06/08 22:44 Order name: Basic Metabolic Panel; Complete Time: 00:15 ci 06/09 00:15 Interpretation: Abnormal: CRE 1.10. ci 06/08 22:44 Order name: CBC with Diff; Complete Time: 04:35 ci 06/09 00:15 Interpretation: Abnormal: WBC 13.40; HGB 5.7. ci 06/08 22:44 Order name: Magnesium; Complete Time: 00:15 ci 06/08 22:44 Order name: Troponin HS; Complete Time: 00:15 ci 06/08 22:44 Order name: Test, Urine ci 06/09 00:11 Order name: Manual Differential; Complete Time: 04:35 EDWV 06/09 00:18 Order name: Type And Screen jj7 06/09 00:21 Order name: Type And Screen ci 06/09 00:21 Order name: Iron Level; Complete Time: 01:48 ci 06/09 00:21 Order name: TIBC; Complete Time: 01:48 ci 06/09 00:21 Order name: TRANSFERRIN SAT/IRON BINDING ci 06/09 00:21 Order name: Ferritin ci 06/09 00:21 Order name: Retic Count; Complete Time: 01:48 ci 06/09 00:21 Order name: B12; Complete Time: 01:48 ci 06/09 00:46 Order name: Test, Serum; Complete Time: 01:48 rv 06/09 00:47 Order name: Packed RBC Leukored EDWV 06/09 08:22 Order name: Glucose, Ancillary Testing ED[facility] 06/08 22:44 Order name: CT Chest For PE Angio ci 06/09 11:35 Order name: CT EDWV 06/08 22:44 Order name: EKG; Complete Time: 22:44 ci 06/09 00:17 Interpretation: Within normal limits: EKG shows normal sinus rhythm, HR 98. ci 06/08 22:44 Order name: Cardiac monitoring; Complete Time: 23:28 ci 06/08 22:44 Order name: EKG - Nurse/Tech; Complete Time: 23:21 ci 06/08 23:21 Interpretation: Within normal limits: EKG shows normal sinus rhythm with no acute ci ischemic changes, HR 98. QTc 469. 06/08 22:44 Order name: IV Saline Lock; Complete Time: 23:28 ci 06/08 22:44 Order name: Labs collected and sent; Complete Time: 23:28 ci 06/08 22:44 Order name: O2 Per Protocol; Complete Time: 23:28 ci 06/08 22:44 Order name: O2 Sat Monitoring; Complete Time: 23:28 ci 06/09 00:21 Order name: Consent for Blood Transfusion; Complete Time: 01:19 ci Administered Medications: 06/08 23:17 Drug: HYDROcodone-acetaminophen PO 5 mg-325 mg 1 tabs PO once Route: PO; rv 06/09 02:23 Follow up: Response: No adverse reaction rv 01:57 Drug: Ondansetron IVP 4 mg IVP once; over 2 minutes Route: IVP; Site: right antecubital;jj7 02:23 Follow up: Response: No adverse reaction rv 02:57 Drug: metoCLOPramide IVP 10 mg IVP once; over 1 to 2 minutes Route: IVP; Site: right rv antecubital; Disposition: 04:21 Chart complete. ci 04:36 Co-signature as Attending Physician, Amy Dill. ci Disposition Summary: 06/09/23 00:54 Hospitalization Ordered Notes: Hospitalization Status: Inpatient Admission ci Provider: Geovany Haskins Condition: Serious ci Problem: new ci Symptoms: are unchanged ci Bed/Room Type: Standard ci Location: Telemetry/[facility] (Inpatient)(06/09/23 14:26) em1 Room Assignment: [facility](06/09/23 14:26) em1 Diagnosis - Anemia, unspecified ci Forms: - Medication Reconciliation Form ci - SBAR form ci - Leadership Thank You Letter ci Critical care time excluding procedures: 00:50 Critical care time: Bedside Care: 35 minutes. Total time: 35 minutes ci Signatures: Dispatcher [employer] Ravinder Cardenas em1 Shorty Smith RN RN Teodora Maria RN RN emma3 Curt Mayberry RN RN jj7 Amy Dill Corrections: (The following items were deleted from the chart) 00:46 00:22 PACKED RBC LEUKORED+BB.LAB.BRZ ordered. EDWV EDMS 00:46 00:24 ABO/RH typing ordered. EDWV EDMS 00:46 00:24 Antibody Screen ordered. EDMS EDMS 04:06 00:54 Telemetry/MedSurg (Inpatient) ci lg3 04:06 00:54 ci lg3 14:26 04:06 [facility] ER HOLD lg3 em1 14:26 04:06 ERHOLD- lg3 em1
[2023-06-09 01:12] LABS: Ferritin 104.5 ng/mL (8-388)
[2023-06-09] MEDS ORDERED: ONDANSETRON 4 MG/2 ML VIAL IV PRN (01:43)
[2023-06-09] MEDS ORDERED: ACETAMINOPHEN 325 MG TABLET PO PRN (01:43)
--- NOTE | 2023-06-09 01:43 | P.HP ---
Certification for Inpatient Patient admitted to: Observation With expected LOS: <2 Midnights Practitioner: I am a practitioner with admitting privileges, knowledge of patient current condition, hospital course, and medical plan of care. Services: Services provided to patient in accordance with Admission requirements found in Title 42 Section 412.3 of the Code of Federal Regulations Patient History Date of Service: 06/09/23 Reason for admission: Dizziness, severe anemia, suspected peptic ulcer disease. History of Present Illness: 43-year-old female patient was recently surgery for body modification was evaluated for episodes of dizzy spells and found to have severe anemia. Hemoglobin was found to be 5.7. She denied overt episode of vomiting of blood passing black stool. She denies fever, chills. she has generalized body ache, headache, dizziness baseline and had a brief syncopal episode. She has a medical history of diabetes type 2, hypertension, obesity and hyperlipidemia. She was worked up with imaging studies that showed no acute abnormality. She was admitted for inpatient care. Allergies No Known Allergies Allergy (Verified 09/16/17 03:51) Home Medications: Metformin HCl 1,000 mg PO BID 09/16/17 Atorvastatin Calcium [Lipitor] 80 mg PO BEDTIME 12/07/21 Fenofibrate,Micronized [Fenofibrate] 1 tab PO DAILY 12/07/21 Fish Oil/Dha/Epa [Fish Oil 1,200 mg Fish Oil] 2 each PO BID #120 cap 11/28/22 Hydrocodone 10/APAP 325 [[place] 10/325] 1 tab PO Q6H PRN #30 tab 11/28/22 Hydrocortisone [Cortef*] 10 mg PO BID #90 tab 11/28/22 Insulin Aspart [Novolog Flexpen] 10 unit SQ TID 11/28/22 Insulin Glargine,Hum.rec.anlog [Basaglar Kwikpen U-100] 100 unit SQ BEDTIME 11/28/22 Phenazopyrididine [Pyridium*] 100 mg PO TID #10 tab 11/28/22 Promethazine Tab [Phenergan*] 25 mg PO Q6H PRN #30 tab 11/28/22 - Past Medical/Surgical History Diabetic: Yes -: DIABETIC TYPE II -: CHOLESTEROL -: DEPRESSION -: hernia repair -: heart ablation -: broke foot -: tonsillectomy -: KATTY -: X3 - Family History Mother -: Diabetes - Social History Alcohol use: No CD- Drugs: No Caffeine use: Yes Review of Systems General: Weakness, Malaise Eyes: Unremarkable ENT: Unremarkable Respiratory: Unremarkable Cardiovascular: Unremarkable Gastrointestinal: Abdominal Pain Genitourinary: Unremarkable Musculoskeletal: Unremarkable Integumentary: Unremarkable Neurological: Weakness Physical Examination - Physical Exam General: Alert, Oriented x3 HEENT: Atraumatic, Normocephalic Neck: Supple Respiratory: Normal air movement Cardiovascular: Regular rate/rhythm, Normal S1 S2 Gastrointestinal: Tenderness Musculoskeletal: No swelling Neurological: Normal speech, Normal strength at 5/5 x4 extr - Studies Laboratory Data (last 24 hrs) 06/08/23 06/08/23 02:31 02:31 WBC 13.40 H Hgb 5.7 L* Hct 17.8 L Plt Count 464 H Sodium 134 L Potassium 4.1 BUN 22 H Creatinine 1.10 H Glucose 285 H Magnesium 2.4 Assessment and Plan - Plan Severe anemia: Etiology yet to be fully determined however patient recently had surgery. Presurgical hemoglobin not known. Hemoglobin of 5.7 noted on labs today. Will obtain iron studies. Will obtain ferritin. Will transfuse packed red cells to keep hemoglobin above 7.0. Will start PPI therapy for suspected GI bleed. Financial Planning Advisor to be consulted. Suspected peptic ulcer disease,. Patient does have abdominal pain and has been taking ibuprofen for pain control. Will have patient on sucralfate and PPI therapy. Will have silviculture teacher evaluate. History of diabetes: Will continue sliding scale insulin for glucose control and once oral feeds are resumed, we will start carb restricted diet. History of hypertension: We will monitor vital signs per unit protocol and restart home antihypertensive medications. Hyperlipidemia: We will continue statin therapy. Prophylaxis: SCDs for DVT prophylaxis due to severe anemia. CODE STATUS: Full code Disposition: We will workup her severe anemia and discharge her once she is deemed medically stable. Discharge Plan: Home - Advance Directives Does patient have a Living Will: No Does patient have a Durable POA for Healthcare: No
[2023-06-09] MEDS ORDERED: ONDANSETRON 4 MG/2 ML VIAL ONE (02:01)
[2023-06-09 02:30] LABS: Blood Morphology Comment NOTED (NOT SEEN); Platelet Estimate ADEQ; Polychromasia 2+
[2023-06-09] MEDS ORDERED: METOCLOPRAMIDE 10 MG/2mL INJ ONE (02:59)
[2023-06-09] MEDS: PANTOPRAZOLE 40 MG INJ IVP SCH ×3 (03:23→19:21)
[2023-06-09] MEDS ORDERED: SODIUM CHLORIDE 0.9% 10ML INJ IV PRN (03:23)
[2023-06-09] MEDS ORDERED: GLUCAGON 1 MG/VIAL IM PRN (03:30)
[2023-06-09] MEDS ORDERED: D50W 25 GM/50 ML SYRINGE IV PRN (03:30)
[2023-06-09] MEDS ORDERED: D10W 125 ML IV PRN (03:34)
[2023-06-09 04:20] VITALS: BMI 36.6
[2023-06-09] MEDS ORDERED: NA CHLORIDE 0.9% 250 ML ONE (05:30)
[2023-06-09] MEDS: INSULIN REGULAR (HUMAN) 100 UNIT/ML SQ SCH ×4 (07:30→19:29)
[2023-06-09] MEDS ORDERED: PANTOPRAZOLE 40 MG INJ ONE (07:51)
[2023-06-09] MEDS: SUCRALFATE 1 GM TABLET PO SCH ×4 (09:00→19:20)
--- NOTE | 2023-06-09 11:34 | RAD REPORT ---
EXAM DESCRIPTION: CT - Chest For Pe Angio - 06/09/2023 6:39 am CLINICAL HISTORY: SOB TECHNIQUE: Axial computed tomographic angiography images of the chest with intravenous contrast. S agittal and coronal reformatted images were created and reviewed. This CT exam was performed using one or more of the following dose reduction techniques: automated exposure control, adjustment of t he mA and/or kV according to patient size, and/or use of iterative reconstruction technique. MIP reconstructed images were created and reviewed. COMPARISON: CTA Chest dated 10/29/2022 FINDINGS: Artifacts: Motion artifact degrades image quality and limits evaluation of subsegmental vessels. Pulmonary arteries: Unremarkable. No central or segmental pulmonary arterial filling defects. Aorta: No acute findings. No thoracic aortic aneurysm. Lungs: Scattered bilateral subsegmental atelectasis/pleural parenchymal scar. Left lower lobe bonita cified granuloma. No mass. Pleural space: Unremarkable. No significant effusion. No pneumothorax. Heart: The heart is mildly enlarged. No significant pericardial effusion. No evidence of RV dys function. Bones/joints: Multilevel spondylosis. No acute fracture. No dislocation. Soft tissues: Circumferential upper abdominal soft tissue swelling/body wall edema with scattered g as foci which may be postsurgical. Lymph nodes: Unremarkable. No enlarged lymph nodes. Liver: The liver is enlarged. Gallbladder and bile ducts: Prior cholecystectomy. IMPRESSION: 1. Motion artifact degrades image quality and limits evaluation of subsegmental vessel s. No central or segmental pulmonary embolic disease. 2. Other findings as above. Electronically signed by: Kiersten Joseph MD 06/09/2023 03:34 AM WASTE DUSTER Due to temporary technical issues with the PACS/Fluency reporting system, reports are being signed by the in house radiologists without review as a courtesy to insure prompt reporting. The interpreting radiologist is fully responsible for the content of the report.
[2023-06-09] MEDS ORDERED: INFLUENZA VACCINE (for 6+ mo) 0.5 ML DOSE IMVAC ONE (12:00)
[2023-06-09] MEDS: SOD FERRIC GLUC COMPLX/SUCROSE 125 MG in NA CHLORIDE 0.9% 100 ML IV SCH ×2 (15:00→15:15)
[2023-06-09] MEDS ORDERED: SUCRALFATE 1 GM TABLET ONE (15:03)
--- NOTE | 2023-06-09 15:12 | EKG ---
Test Date: 2023-06-08 Test Time: 23:06:58 Biomedical Instrument Technician: CALVIN MEASUREMENT RESULTS: Intervals: Rate: 98 NE: 172 QRSD: 92 QT: 368 QTc: 469 [place]: P: 61 NE: 172 QRS: 64 T: 61 INTERPRETIVE STATEMENTS: Normal sinus rhythm Normal ECG Compared to ECG 03/22/2023 16:48:29 Myocardial infarct finding no longer present Electronically Signed On 06-09-23 15:10:28 DENTAL OFFICE MANAGER by Mp Light
--- NOTE | 2023-06-09 16:17 | RAD REPORT ---
EXAM DESCRIPTION: CTAbdomen Pelvis W Contrast - 06/09/2023 4:05 pm CLINICAL HISTORY: Abdominal pain. s/p liposuction with hematoma COMPARISON: <Comparisons> TECHNIQUE: Biphasic CT imaging of the abdomen and pelvis was performed with 100 ml non-ionic IV cont rast. All CT scans are performed using dose optimization technique as appropriate and may include automated exposure control or mA/KV adjustment according to patient size. FINDINGS: The lung bases are clear.Cholecystectomy clips. The liver, spleen, pancreas, adrenal glands and kidneys are within normal limits. No bowel obstruction, free air, free fluid or abscess. The appendix is normal. No evidence of signi ficant lymphadenopathy. Moderate soft tissue edema and fluid is present diffusely throughout the soft tissues of the abdomen and pelvis. No suspicious bony findings. IMPRESSION: No acute intra-abdominal or pelvic finding. Moderate edema and fluid seen in the superficial soft tissues of the abdomen and pelvis, presumably p ostoperative in nature
[2023-06-09] MEDS: NA CHLORIDE 0.9% 1,000 ML IV SCH (16:25)
[2023-06-09 18:40] LABS: Absolute Lymphocytes (CBC) 1.8 K/uL (0.7-4.9); Hematocrit 22.5 % (36.0-45.0); Lymphocytes % 15.8 % (15.3-44.8); MCV 85.6 fL (80-100); MPV 6.4 fL (7.6-11.3); Platelets 454 thou/uL (152-406); RBC Red Blood Cell Count 2.63 M/uL (3.86-4.86)
[2023-06-09] MEDS: HYDROCODONE/APAP 5/325 MG TAB PO PRN (23:07)
[2023-06-10] MEDS: HYDROCODONE/APAP 5/325 MG TAB PO PRN ×3 (05:48→22:22)
[2023-06-10] MEDS: NA CHLORIDE 0.9% 1,000 ML IV SCH ×2 (05:48→21:04)
[2023-06-10] MEDS: INSULIN REGULAR (HUMAN) 100 UNIT/ML SQ SCH ×4 (07:30→21:04)
[2023-06-10 08:15] LABS: Absolute Lymphocytes (CBC) 1.9 K/uL (0.7-4.9); Hematocrit 21.4 % (36.0-45.0); MCV 86.3 fL (80-100); MPV 6.6 fL (7.6-11.3); Platelets 418 thou/uL (152-406); RBC Red Blood Cell Count 2.48 M/uL (3.86-4.86)
[2023-06-10] MEDS: SUCRALFATE 1 GM TABLET PO SCH ×4 (08:19→21:03)
[2023-06-10] MEDS: PANTOPRAZOLE 40 MG INJ IVP SCH ×2 (08:19→21:03)
[2023-06-10 08:20] LABS: Potassium 4.1 mEq/L (3.5-5.1)
[2023-06-10] MEDS: SOD FERRIC GLUC COMPLX/SUCROSE 125 MG in NA CHLORIDE 0.9% 100 ML IV SCH (09:03)
[2023-06-10 09:18] LABS: Platelet Estimate ADEQ
[2023-06-10 09:41] LABS: Polychromasia 2+
[2023-06-10 09:42] LABS: Blood Morphology Comment NOTED (NOT SEEN)
[2023-06-10 09:43] LABS: Anisocytosis 1+
[2023-06-10] MEDS ORDERED: NA CHLORIDE 0.9% 100 ML ONE (11:38)
[2023-06-10 18:21] LABS: Absolute Lymphocytes (CBC) 1.8 K/uL (0.7-4.9); Hematocrit 26.3 % (36.0-45.0); Lymphocytes % 15.8 % (15.3-44.8); MPV 6.5 fL (7.6-11.3); Platelets 420 thou/uL (152-406); RBC Red Blood Cell Count 3.03 M/uL (3.86-4.86)
[2023-06-10 19:13] LABS: Blood Morphology Comment NOT SEEN (NOT SEEN); Platelet Estimate ADEQ; White Blood Cell Scan OK (OK)
[2023-06-11] MEDS: HYDROCODONE/APAP 5/325 MG TAB PO PRN (06:58)
[2023-06-11] MEDS: PANTOPRAZOLE 40 MG INJ IVP SCH (08:34)
[2023-06-11] MEDS: SUCRALFATE 1 GM TABLET PO SCH ×2 (08:34→12:31)
[2023-06-11] MEDS: INSULIN REGULAR (HUMAN) 100 UNIT/ML SQ SCH ×2 (08:37→12:32)
[2023-06-11] MEDS: NA CHLORIDE 0.9% 1,000 ML IV SCH (09:00)
[2023-06-11] MEDS: SOD FERRIC GLUC COMPLX/SUCROSE 125 MG in NA CHLORIDE 0.9% 100 ML IV SCH (09:07)
[2023-06-11 09:53] VITALS: O2SAT 96
[2023-06-11 12:53] VITALS: BP 117/71; TEMP 97.3
[2023-06-11] MEDS ORDERED: HYDROCORTISONE 10 MG TAB PO ONE (13:00)
== END 2023-06-11 13:55 | disposition home or self-care (01) ==
LOC: ER 20:10 → ERHOLD 06-09 01:43 → 4TH 06-09 15:16
PROVIDERS: ADMIT Internal Medicine Nephrology; ATTEND Internal Medicine Nephrology
DX: D64.9 Anemia, unspecified (principal); R42 Dizziness and giddiness; R55 Syncope and collapse; E11.9 Type 2 diabetes mellitus without complications; I10 Essential (primary) hypertension; E66.9 Obesity, unspecified; E78.5 Hyperlipidemia, unspecified; R10.9 Unspecified abdominal pain; Z79.4 Long term (current) use of insulin; Z98.890 Other specified postprocedural states; Z68.36 Body mass index [BMI] 36.0-36.9, adult
CPT/HCPCS: 36430 ×2; 93005; 85025 ×4; 80048 ×2; 36415 ×3; 86900; 83735; 86850; 84703; 85044; 86901; 82947 ×9; 86920 ×3; 84484; 82728; 82607; 83540; 84466; 71275; 74177; 96375; 96374; 99285; Q9967 ×2; J1815 ×7; J2916 ×2; J2765; C9113 ×5; J2405 ×2; G0378 ×4; P9016 ×3; J7050; J7030 ×3

== ENCOUNTER 2023-06-15 17:22 | Emergency (ER) | payer OTHER ==
[2023-06-15 18:04] LABS: Absolute Lymphocytes (CBC) 2.1 K/uL (0.7-4.9); Hematocrit 29.7 % (36.0-45.0); Lymphocytes % 33.4 % (15.3-44.8); MCV 87.4 fL (80-100); MPV 6.4 fL (7.6-11.3); Platelets 440 thou/uL (152-406)
[2023-06-15 18:22] LABS: Magnesium 1.6 mg/dL (1.6-2.4); Potassium 3.7 mEq/L (3.5-5.1)
--- NOTE | 2023-06-15 18:23 | RAD REPORT ---
EXAM DESCRIPTION: RAD - Chest Single View - 06/15/2023 6:17 pm CLINICAL HISTORY: SWELLING Chest pain. COMPARISON: <Comparisons> FINDINGS: Portable technique limits examination quality. The lungs are grossly clear. The heart is normal in size. No displaced fractures. IMPRESSION: No acute intrathoracic process suspected.
--- NOTE | 2023-06-15 19:23 | RAD REPORT ---
EXAM DESCRIPTION: US - Extrem Venous W Compress Nj - 06/15/2023 7:16 pm CLINICAL HISTORY: SWELLING Bilateral leg edema and swelling. COMPARISON: No comparisons TECHNIQUE: Real-time sonographic interrogation of the left and right lower extremity deep venous sys tems was performed. FINDINGS: Normal compressibility, flow augmentation, phasic flow and spontaneous flow is identified in both the left and right lower extremity deep venous systems. IMPRESSION: No sonographic evidence of left or right lower extremity deep venous thrombosis.
[2023-06-15 21:09] LABS: Specific Gravity 1.024 (1.005-1.030); Urine Bilirubin NEGATIVE (Negative); Urine Blood Negative (Negative); Urine Clarity Clear (Clear); Urine Color Yellow (Yellow); Urine Glucose 4+ (Over) (Negative); Urine Protein NEGATIVE (Negative); Urine Urobilinogen Normal (Normal); Urine pH 5.5 (5.0-7.0)
--- NOTE | 2023-06-15 21:16 | EDPHYS ---
Physician Documentation [facility] Name: Valentina Franco Age: 43 yrs Sex: Female : 1980 Arrival Date: 06/15/2023 Time: 17:22 Bed 15 Private MD: ED Physician Braxton Vizcaino HPI: 06/15 21:36 This 43 yrs old Female presents to ER via Ambulatory with complaints of Feet kb Swelling, Palpitations. 21:36 Patient is a 43-year-old female who presents for bilateral lower extremity edema and kb palpitations that started yesterday. States she had lipo 2 weeks ago in [place], was admitted a week and a half ago for anemia and discharged on the first. Denies shortness of breath.. Historical: - Allergies: 17:33 No Known Allergies; db - PMHx: 17:33 Anxiety; Depression; diabetes mellitus; Hypertensive disorder; Kidney stone; db Pancreatitis; Sepsis; UTI; High Cholesterol; yeast infection; - PSHx: 17:33 Tonsillectomy; LIPOSUCTION TO CHIN (ho); Ligation of fallopian tube; Heart ablation; db foot surgery; Cholecystectomy; section; section; BBL (ho); - Immunization history:: Adult Immunizations unknown. - Social history:: Smoking status: Patient denies any tobacco usage or history of. ROS: 21:42 Constitutional: Negative for fever, chills, and weight loss, kb 21:42 Cardiovascular: Positive for edema, palpitations, 21:42 All other systems are negative, Exam: 21:42 Constitutional: This is a well developed, well nourished patient who is awake, alert, kb and in no acute distress. Head/Face: Normocephalic, atraumatic. ENT: Moist Mucous membranes Cardiovascular: Regular rate Respiratory: Respirations even and unlabored. No increased work of breathing. Talking in full sentences Abdomen/GI: Soft, non-tender. No distention Skin: Warm, dry with normal turgor. Normal color. MS/ Extremity: Pulses equal, no cyanosis. Neurovascular intact. Full, normal range of motion. Neuro: Awake and alert, GCS 15, oriented to person, place, time, and situation. Moves all extremities. Normal gait. 21:42 Cardiovascular: Edema: 2+ edema to level of left leg and right leg, 21:42 ECG was reviewed by the Attending Physician. Vital Signs: 17:30 BP 114 / 77; Pulse 82; Resp 18; Temp 97.5(TE); Pulse Ox 99% ; Weight 93.89 kg; Height 5 db ft. 4 in. ; 17:51 BP 120 / 62; Pulse 78; Resp 14 S; Pulse Ox 100% on R/A; kc6 18:53 BP 103 / 60; Pulse 86; Resp 20 S; Pulse Ox 98% on R/A; kc6 20:40 BP 111 / 68; Pulse 81; Resp 17 S; Pulse Ox 99% on R/A; lg3 17:30 Body Mass Index 35.53 (93.89 kg, 162.56 cm) db MDM: 17:25 Patient medically screened. kb 21:43 Data reviewed: vital signs, nurses notes. Consideration of Admission/Observation kb Escalation of care including admission/observation considered. admission considered for edema and mild CARLOS. Discussed all results with pt and she prefers to follow up with PCP. Resp even and unlabored, lungs clear bilatearlly, oxygen saturation 99% on room air. . Counseling: I had a detailed discussion with the patient and/or guardian regarding the historical points, exam findings, and any diagnostic results supporting the discharge/admit diagnosis, lab results, radiology results, the need for outpatient follow up, a family practitioner, to return to the emergency department if symptoms worsen or persist or if there are any questions or concerns that arise at home. 21:44 External Records Reviewed: Inpatient record: labs from previous admission reviewed. kb 06/15 17:32 Order name: Basic Metabolic Panel; Complete Time: 18:25 kb 06/15 17:32 Order name: CBC with Diff; Complete Time: 18:15 kb 06/15 17:32 Order name: Magnesium; Complete Time: 18:25 kb 06/15 17:32 Order name: NT PRO-BNP; Complete Time: 18:25 kb 06/15 17:32 Order name: Troponin HS; Complete Time: 18:25 kb 06/15 19:36 Order name: Urinalysis w/ reflexes; Complete Time: 21:12 kb 06/15 17:32 Order name: XRAY Chest (1 view); Complete Time: 18:25 kb 06/15 17:32 Order name: US Extremity Venous W Compression Nj; Complete Time: 19:26 kb 06/15 17:32 Order name: EKG; Complete Time: 17:52 kb 06/15 17:32 Order name: Cardiac monitoring; Complete Time: 17:49 kb 06/15 17:32 Order name: EKG - Nurse/Tech; Complete Time: 17:49 kb 06/15 17:32 Order name: IV Saline Lock; Complete Time: 17:49 kb 06/15 17:32 Order name: Labs collected and sent; Complete Time: 17:49 kb 06/15 17:32 Order name: O2 Per Protocol; Complete Time: 17:49 kb 12 17:32 Order name: O2 Sat Monitoring; Complete Time: 17:49 kb EC:42 Rate is 87 beats/min. Rhythm is regular. QRS [place] is Normal. MD interval is normal at kb 152 msec. QRS interval is normal at 80 msec. QT interval is normal at 457 msec. Administered Medications: No medications were administered Disposition Summary: 06/15/23 21:15 Discharge Ordered Notes: Location: Home kb Condition: Stable kb Diagnosis - Edema, unspecified kb Followup: kb - With: Emergency Department - When: As needed - Reason: Worsening of condition Followup: kb - With: Private Physician - When: 2 - 3 days - Reason: Recheck today's complaints, Continuance of care, Re-evaluation by your physician Discharge Instructions: - Discharge Summary Sheet kb - Peripheral Edema kb Forms: - Medication Reconciliation Form kb - Thank You Letter kb - Antibiotic Education kb - Prescription Opioid Use kb - Patient Portal Instructions kb - Leadership Thank You Letter kb Addendum: 06/17/2023 10:18 Co-signature as Attending Physician, Braxton Vzicaino MD I reviewed the patient's care r t provided by the Advanced Practice Provider and agree with the diagnosis and treatment plan. Signatures: Dispatcher [employer] Milady Iglesias, CAS-C CAS-Latoya Lutz RN RN Braxton Godinez MD MD rt
--- NOTE | 2023-06-15 21:16 | ER ---
Nurse's Notes [facility] Name: Valentina Franco Age: 43 yrs Sex: Female : 1980 Arrival Date: 06/15/2023 Time: 17:22 Bed 15 Private MD: Diagnosis: Edema, unspecified Presentation: 06/15 17:30 Chief complaint: Patient states: FOOT SWELLING, PALPITATIONS. LIPO SUCTION 2 WEEKS AGO. db SEEN 1 1/2 WEEKS AGO FOR SIMILAR SYMPTOMS LIKE TODAY AND WAS ADMITTED. Coronavirus screen: Vaccine status: Patient reports receiving the 2nd dose of the covid vaccine. Client denies travel out of the [place] in the last 14 days. At this time, the client does not indicate any symptoms associated with coronavirus-19. Ebola Screen: Patient negative for fever greater than or equal to 101.5 degrees Fahrenheit, and additional compatible Ebola Virus Disease symptoms Patient denies exposure to infectious person. Patient denies travel to an Ebola-affected area in the 21 days before illness onset. No symptoms or risks identified at this time. Initial Sepsis Screen: Does the patient meet any 2 criteria? No. Patient's initial sepsis screen is negative. Does the patient have a suspected source of infection? No. Patient's initial sepsis screen is negative. Risk Assessment: Do you want to hurt yourself or someone else? Patient reports no desire to harm self or others. Onset of symptoms was June 15, 2023. 17:30 Method Of Arrival: Ambulatory db 17:30 Acuity: CYNTHIA 3 db Triage Assessment: 17:33 General: Appears in no apparent distress. comfortable, Behavior is calm, cooperative. db Pain: Complains of pain in right leg and left leg. Neuro: Level of Consciousness is awake, alert, obeys commands, Oriented to person, place, time, situation. Respiratory: Airway is patent Respiratory effort is even, unlabored, Respiratory pattern is regular, symmetrical. Historical: - Allergies: 17:33 No Known Allergies; db - PMHx: 17:33 Anxiety; Depression; diabetes mellitus; Hypertensive disorder; Kidney stone; db Pancreatitis; Sepsis; UTI; High Cholesterol; yeast infection; - PSHx: 17:33 Tonsillectomy; LIPOSUCTION TO CHIN (ho); Ligation of fallopian tube; Heart ablation; db foot surgery; Cholecystectomy; section; section; BBL (ho); - Immunization history:: Adult Immunizations unknown. - Social history:: Smoking status: Patient denies any tobacco usage or history of. Screenin:49 [facility] ED Fall Risk Assessment (Adult) History of falling in the last 3 months, kc6 including since admission No falls in past 3 months (0 pts) Confusion or Disorientation No (0 pts) Intoxicated or Sedated No (0 pts) Impaired Gait No (0 pts) Mobility Assist Device Used No (0 pt) Altered Elimination No (0 pt) Score/Fall Risk Level 0 - 2 = Low Risk. Abuse screen: Denies threats or abuse. Denies injuries from another. Nutritional screening: No deficits noted. Tuberculosis screening: No symptoms or risk factors identified. Assessment: 17:50 General: Appears in no apparent distress. comfortable, Behavior is calm, cooperative, kc6 appropriate for age. Pain: Complains of pain in buttocks and left leg and right leg. Neuro: Level of Consciousness is awake, alert, obeys commands, Oriented to person, place, time, situation, Appropriate for age. Cardiovascular: Reports palpitations, Denies chest pain, Heart tones S1 S2 present Capillary refill < 3 seconds Edema is 2+ to left leg and right leg Rhythm is sinus rhythm. Respiratory: Airway is patent Trachea midline Respiratory effort is even, unlabored, Respiratory pattern is regular, symmetrical. GI: No signs and/or symptoms were reported involving the gastrointestinal system. : No signs and/or symptoms were reported regarding the genitourinary system. EENT: No signs and/or symptoms were reported regarding the EENT system. Derm: No signs and/or symptoms reported regarding the dermatologic system. Skin is intact, is healthy with good turgor, Skin is dry, Skin is pale, Skin temperature is warm. Musculoskeletal: No signs and/or symptoms reported regarding the musculoskeletal system. Circulation, motion, and sensation intact. Capillary refill < 3 seconds, Range of motion: intact in all extremities. 18:50 Reassessment: Patient appears in no apparent distress at this time. No changes from kc6 previously documented assessment. Patient and/or family updated on plan of care and expected duration. Pain level reassessed. Patient is alert, oriented x 3, equal unlabored respirations, skin warm/dry/pink. 20:40 General: Appears in no apparent distress. comfortable, Behavior is calm, cooperative. lg3 Pain: Complains of pain in buttocks Pain currently is 4 out of 10 on a pain scale. Neuro: No deficits noted. [place] Agitation-Sedation Scale (RASS): 0 - Alert and Calm Level of Consciousness is awake, alert, obeys commands, Oriented to person, place, time, situation. Cardiovascular: No deficits noted. Denies chest pain. Respiratory: No deficits noted. Airway is patent Respiratory effort is even, unlabored, Respiratory pattern is regular, symmetrical. GI: No deficits noted. No signs and/or symptoms were reported involving the gastrointestinal system. : No deficits noted. No signs and/or symptoms were reported regarding the genitourinary system. EENT: No deficits noted. No signs and/or symptoms were reported regarding the EENT system. Derm: No deficits noted. No signs and/or symptoms reported regarding the dermatologic system. Skin is intact, is healthy with good turgor, Skin is dry, Skin is normal, Skin temperature is warm. Musculoskeletal: Circulation, motion, and sensation intact. Capillary refill < 3 seconds, Range of motion: intact in all extremities, Swelling present in right leg and left leg. 21:33 Reassessment: Patient appears in no apparent distress at this time. No changes from lg3 previously documented assessment. Patient and/or family updated on plan of care and expected duration. Pain level reassessed. Patient is alert, oriented x 3, equal unlabored respirations, skin warm/dry/pink. Patient states feeling better. Vital Signs: 17:30 BP 114 / 77; Pulse 82; Resp 18; Temp 97.5(TE); Pulse Ox 99% ; Weight 93.89 kg; Height 5 db ft. 4 in. ; 17:51 BP 120 / 62; Pulse 78; Resp 14 S; Pulse Ox 100% on R/A; kc6 18:53 BP 103 / 60; Pulse 86; Resp 20 S; Pulse Ox 98% on R/A; kc6 20:40 BP 111 / 68; Pulse 81; Resp 17 S; Pulse Ox 99% on R/A; lg3 17:30 Body Mass Index 35.53 (93.89 kg, 162.56 cm) db ED Course: 17:24 Patient arrived in ED. rg4 17:25 Milady Turpin FNP-C [facility]. kb 17:25 Braxton Vizcaino MD is Attending Physician. kb 17:32 Triage completed. db 17:33 Arm band placed on right wrist. db 17:38 Patient placed in an exam room, on a stretcher. ll1 17:39 Ariana Pritchett, RN is Primary Nurse. kc6 17:50 Patient has correct armband on for positive identification. Bed in low position. Call kc6 light in reach. Side rails up X2. Client placed on continuous cardiac and pulse oximetry monitoring. NIBP monitoring applied. press setup operator on. 17:50 Inserted saline lock: 20 gauge in left antecubital area, using aseptic technique. Blood kc6 collected. Patient maintains SpO2 saturation greater than 95% on room air. 18:19 XRAY Chest (1 view) In Process Unspecified. EDMS 19:00 Report given to Teodora Mcnair RN. kc6 19:18 US Extremity Venous W Compression Nj In Process Unspecified. EDMS 21:33 No provider procedures requiring assistance completed. IV discontinued, intact, lg3 bleeding controlled, No redness/swelling at site. Pressure dressing applied. Administered Medications: No medications were administered Medication: 21:33 VIS not applicable for this client. lg3 Outcome: 21:15 Discharge ordered by MD. kb 21:33 Discharged to home ambulatory, lg3 21:33 Condition: stable 21:33 Discharge instructions given to patient, Instructed on discharge instructions, follow up and referral plans. Demonstrated understanding of instructions, follow-up care, 21:33 Patient left the ED. lg3 Signatures: Dispatcher [employer] EDMI Milady Turpin, STAMPING MACHINE OPERATOR-C STAMPING MACHINE OPERATOR-CkGem Siu rg4 Teodora Mcnair RN RN lg3 Topher Astorga, PETE RN ll1 Ariana Pritchett, RN RN kc6 Latoya Mathews, PETE RN db
[2023-06-15 22:14] VITALS: TEMP 97.5
[2023-06-15 22:16] VITALS: BP 111/68; O2SAT 99
--- NOTE | 2023-06-21 14:06 | EKG ---
Test Date: 2023-06-15 Test Time: 17:44:30 Meat Packer: MAGDALENA MEASUREMENT RESULTS: Intervals: Rate: 87 SC: 152 QRSD: 80 QT: 380 QTc: 457 [place]: P: 53 SC: 152 QRS: 72 T: 53 INTERPRETIVE STATEMENTS: Normal sinus rhythm Normal ECG Compared to ECG 06/08/2023 23:06:58 No significant changes Electronically Signed On 06-21-23 13:47:09 MANAGER OF DATA by Mp Light
== END 2023-06-15 21:33 | disposition home or self-care (01) ==
LOC: ER 17:22
DX: R60.9 Edema, unspecified (principal); R00.2 Palpitations; I10 Essential (primary) hypertension; E11.9 Type 2 diabetes mellitus without complications
CPT/HCPCS: 36415; 71045; 80048; 81003; 83735; 83880; 84484; 85025; 93005; 93970; 99285

== ENCOUNTER → 2023-07-18 | Emergency (ER) | payer OTHER ==
[~2023-07-18] MED LIST: CEFTRIAXONE 1000 MG/VIAL ONE; FAMOTIDINE 20 MG/2 ML VIAL IV ONE; METOCLOPRAMIDE 10 MG/2mL INJ ONE; MORPHINE 4 MG/ML SYR ONE; NA CHLORIDE 0.9% 1,000 ML ONE; ONDANSETRON 4 MG/2 ML VIAL ONE
[2023-07-18 03:49] LABS: Absolute Lymphocytes (CBC) 3.5 K/uL (0.7-4.9); Hematocrit 37.7 % (36.0-45.0); Lymphocytes % 43.7 % (15.3-44.8); MCV 85.8 fL (80-100); MPV 7.1 fL (7.6-11.3); Platelets 252 thou/uL (152-406)
[2023-07-18 03:58] LABS: Albumin 3.8 g/dL (3.4-5.0); Bilirubin Total 0.2 mg/dL (0.2-1.0); Potassium 3.5 mEq/L (3.5-5.1); Protein, Total 7.8 g/dL (6.4-8.2)
[2023-07-18 04:10] LABS: Specific Gravity 1.029 (1.005-1.030)
[2023-07-18 04:11] LABS: Specific Gravity 1.029 (1.005-1.030); Urine Bilirubin NEGATIVE (Negative); Urine Blood Negative (Negative); Urine Clarity Clear (Clear); Urine Color Light-Yellow (Yellow); Urine Glucose 4+ (Over) (Negative); Urine Protein NEGATIVE (Negative); Urine Urobilinogen Normal (Normal)
--- NOTE | 2023-07-18 05:16 | ER ---
Nurse's Notes [facility] [place] Name: Valentina Franco Age: 43 yrs Sex: Female : 1980 Arrival Date: 07/18/2023 Time: 03:00 Bed 18 Private MD: Diagnosis: Epigastric abdominal tenderness;Abdominal pain, unspecified Presentation: 07/18 03:38 Chief complaint: Patient states: 30 Min [employer] I started vomiting and I am having mid jb4 abdominal pain. It feels like I have pancreatitis again and it lee when I pee. Coronavirus screen: At this time, the client does not indicate any symptoms associated with coronavirus-19. Ebola Screen: No symptoms or risks identified at this time. Initial Sepsis Screen: Does the patient meet any 2 criteria? No. Patient's initial sepsis screen is negative. Does the patient have a suspected source of infection? No. Patient's initial sepsis screen is negative. Risk Assessment: Do you want to hurt yourself or someone else? Patient reports no desire to harm self or others. Onset of symptoms was July 18, 2023. 03:38 Method Of Arrival: Ambulatory jb4 03:38 Acuity: CYNTHIA 3 jb4 Historical: - Allergies: 03:39 No Known Allergies; jb4 - PMHx: 03:39 Anxiety; Depression; diabetes mellitus; High Cholesterol; Hypertensive disorder; Kidney jb4 stone; Pancreatitis; Sepsis; UTI; yeast infection; - PSHx: 03:39 section; Cholecystectomy; foot surgery; Tonsillectomy; LIPOSUCTION TO CHIN; jb4 Ligation of fallopian tube; section; Heart ablation; BBL; - Immunization history:: Adult Immunizations up to date. - Social history:: Smoking status: Patient denies any tobacco usage or history of. Screenin:[facility] ED Fall Risk Assessment (Adult) History of falling in the last 3 months, pf1 including since admission No falls in past 3 months (0 pts) Confusion or Disorientation No (0 pts) Intoxicated or Sedated No (0 pts) Impaired Gait No (0 pts) Mobility Assist Device Used No (0 pt) Altered Elimination No (0 pt) Score/Fall Risk Level 0 - 2 = Low Risk Oriented to surroundings, Maintained a safe environment, Educated pt \T\ family on fall prevention, incl call for assistance when getting out of bed, Assessed \T\ reinforced patient's understanding of fall precautions, Provided non-skid footwear, Hourly rounding (assess needs \T\ fall precautionary measures) done, Used ambulatory aids as needed (educated on \T\ assisted with), Used gait belt as appropriate. Abuse screen: Denies threats or abuse. Nutritional screening: No deficits noted. Tuberculosis screening: No symptoms or risk factors identified. Assessment: 03:20 General: Appears in no apparent distress. uncomfortable, well groomed, well developed, pf1 Behavior is calm, cooperative, appropriate for age, quiet. 03:20 Pain: Complains of pain in abdomen Pain began yesterday. Neuro: No deficits noted. pf1 Level of Consciousness is awake, alert, obeys commands, Oriented to person, place, time, situation. Cardiovascular: No deficits noted. Capillary refill < 3 seconds Patient's skin is warm and dry. Respiratory: No deficits noted. Airway is patent Respiratory effort is even, unlabored, Respiratory pattern is regular, symmetrical. GI: Abdomen is round non-distended, Bowel sounds present X 4 quads. Abdomen is tender to palpation in right upper quadrant and left upper quadrant Reports nausea, vomiting. : Reports discharge, since 2 weeks grayish color with a fishy odor smell. EENT: No deficits noted. No signs and/or symptoms were reported regarding the EENT system. 05:00 Reassessment: Patient appears in no apparent distress at this time. No changes from lg3 previously documented assessment. Patient and/or family updated on plan of care and expected duration. Pain level reassessed. Patient is alert, oriented x 3, equal unlabored respirations, skin warm/dry/pink. 05:36 Reassessment: Patient appears in no apparent distress at this time. Patient and/or jb4 family updated on plan of care and expected duration. Pain level reassessed. Patient is alert, oriented x 3, equal unlabored respirations, skin warm/dry/pink. Vital Signs: 03:32 BP 106 / 74; Pulse 77; Resp 17 S; Pulse Ox 98% on R/A; lg3 05:00 BP 107 / 69; Pulse 77; Resp 18 S; Pulse Ox 98% on R/A; lg3 ED Course: 03:07 Patient arrived in ED. gm2 03:08 Johan Giron MD is Attending Physician. young 03:15 No provider procedures requiring assistance completed. Inserted saline lock: 22 gauge pf1 in right antecubital area, using aseptic technique. Blood collected. 03:30 CBC with Diff Sent. lg3 03:30 CMP Sent. lg3 03:30 Lipase Sent. lg3 03:30 Test, Urine Sent. lg3 03:30 Urinalysis w/ reflexes Sent. lg3 03:39 Triage completed. jb4 03:39 Arm band placed on right wrist. jb4 03:45 IV discontinued, intact, bleeding controlled, No redness/swelling at site. Pressure pf1 dressing applied, patient stated the IV was burning. 03:55 Inserted saline lock: 22 gauge in left wrist, using aseptic technique. pf1 04:45 CT Abd/Pelvis - IV Contrast Only In Process Unspecified. EDMS 04:59 Teodora Mcnair RN is Primary Nurse. lg3 05:15 Laura Corona MD is Referral Physician. young 05:36 Patient has correct armband on for positive identification. Bed in low position. Call jb4 light in reach. Side rails up X 1. Administered Medications: 03:55 Drug: NS 0.9% IV 1000 ml IV at 1 bolus Per protocol; 1000 mL bolus Route: IV; Rate: 1 pf1 bolus; Site: left wrist; 04:26 Follow up: Response: No adverse reaction; Marked relief of symptoms pf1 03:55 Drug: Famotidine IVP 20 mg IVP once; dilute with 10 mL 0.9% NaCl; give over 2 minutes pf1 Route: IVP; Site: left wrist; 04:26 Follow up: Response: No adverse reaction; Marked relief of symptoms pf1 03:55 Drug: Ondansetron IVP 4 mg IVP once; over 2 minutes Route: IVP; Site: left wrist; pf1 04:26 Follow up: Response: No adverse reaction; Nausea unchanged pf1 03:55 Drug: morphine IVP or IV 4 mg IVP once over 4 mins Route: IVP; Infused Over: 4 mins; pf1 Site: left wrist; 04:27 Follow up: Response: No adverse reaction; Marked relief of symptoms; Pain is decreased pf1 04:17 Drug: NS 0.9% IV 1000 ml IV at 1 bolus Per protocol; 1000 mL bolus Route: IV; Rate: 1 lg3 bolus; Site: left wrist; 04:25 Drug: metoCLOPramide IVP 10 mg IVP once; over 1 to 2 minutes Route: IVP; Site: left pf1 wrist; 04:26 Drug: Rocephin IV 1 grams IV at per protocol once; Given slow IV push per pharmacy pf1 instructions Route: IV; Rate: per protocol; Site: left wrist; Outcome: 05:15 Discharge ordered by MD. vidal 05:36 Discharged to home ambulatory, jb4 05:36 Condition: stable 05:36 Discharge instructions given to patient, Instructed on discharge instructions, follow up and referral plans. medication usage, Demonstrated understanding of instructions, follow-up care, medications, Prescriptions given X 3, 05:37 Patient left the ED. jb4 Signatures: Dispatcher [employer] EDMS Johan Giron MD MD cha Bryson, James, RN RN jb4 Teodora Mcnair RN RN lg3 Beatriz Tracy RN RN pf1 Nataly Pryor gm2 Corrections: (The following items were deleted from the chart) 04:11 03:20 GI: Abdomen is round non-distended, Bowel sounds present X 4 quads. Abdomen is pf1 tender to palpation in right upper quadrant and left upper quadrant pf1
--- NOTE | 2023-07-18 05:16 | EDPHYS ---
Physician Documentation [facility] Name: Valentina Franco Age: 43 yrs Sex: Female : 1980 Arrival Date: 07/18/2023 Time: 03:00 Bed 18 Private MD: PHYLICIA Physician Johan Giron HPI: 07/18 04:03 This 43 yrs old Female presents to ER via Ambulatory with complaints of young Abdominal Pain. 04:03 The patient presents with abdominal pain in the upper abdomen, in the lower abdomen, young abdominal distention in the upper abdomen, in the lower abdomen. Onset: The symptoms/episode began/occurred 2 day(s) ago. The symptoms do not radiate. Associated signs and symptoms: Pertinent positives:. Historical: - Allergies: 03:39 No Known Allergies; jb4 - PMHx: 03:39 Anxiety; Depression; diabetes mellitus; High Cholesterol; Hypertensive disorder; Kidney jb4 stone; Pancreatitis; Sepsis; UTI; yeast infection; - PSHx: 03:39 section; Cholecystectomy; foot surgery; Tonsillectomy; LIPOSUCTION TO CHIN; jb4 Ligation of fallopian tube; section; Heart ablation; BBL; - Immunization history:: Adult Immunizations up to date. - Social history:: Smoking status: Patient denies any tobacco usage or history of. ROS: 04:07 Constitutional: Negative for fever, chills, and weight loss, Eyes: Negative for injury, young pain, redness, and discharge, ENT: Negative for injury, pain, and discharge, Neck: Negative for injury, pain, and swelling, Cardiovascular: Negative for chest pain, palpitations, and edema, Respiratory: Negative for shortness of breath, cough, wheezing, and pleuritic chest pain, Back: Negative for injury and pain, : Negative for injury, bleeding, discharge, and swelling, MS/Extremity: Negative for injury and deformity, Skin: Negative for injury, rash, and discoloration, Neuro: Negative for headache, weakness, numbness, tingling, and seizure, Psych: Negative for depression, anxiety, suicide ideation, homicidal ideation, and hallucinations, Allergy/Immunology: Negative for hives, rash, and allergies, Endocrine: Negative for neck swelling, polydipsia, polyuria, polyphagia, and marked weight changes, Hematologic/Lymphatic: Negative for swollen nodes, abnormal bleeding, and unusual bruising, 04:07 Abdomen/GI: Positive for abdominal pain, nausea and vomiting, of the epigastric area, right upper quadrant and left upper quadrant, Exam: 04:07 Constitutional: This is a well developed, well nourished patient who is awake, alert, young and in no acute distress. Head/Face: Normocephalic, atraumatic. Eyes: Pupils equal round and reactive to light, extra-ocular motions intact. Lids and lashes normal. Conjunctiva and sclera are non-icteric and not injected. Cornea within normal limits. Periorbital areas with no swelling, redness, or edema. ENT: Nares patent. No nasal discharge, no septal abnormalities noted. Tympanic membranes are normal and external auditory canals are clear. Oropharynx with no redness, swelling, or masses, exudates, or evidence of obstruction, uvula midline. Mucous membranes moist. Neck: Trachea midline, no thyromegaly or masses palpated, and no cervical lymphadenopathy. Supple, full range of motion without nuchal rigidity, or vertebral point tenderness. No Meningismus. Chest/axilla: Normal chest wall appearance and motion. Nontender with no deformity. No lesions are appreciated. Cardiovascular: Regular rate and rhythm with a normal S1 and S2. No gallops, murmurs, or rubs. Normal PMI, no JVD. No pulse deficits. Respiratory: Lungs have equal breath sounds bilaterally, clear to auscultation and percussion. No rales, rhonchi or wheezes noted. No increased work of breathing, no retractions or nasal flaring. Back: No spinal tenderness. No costovertebral tenderness. Full range of motion. Female : Normal external genitalia. Skin: Warm, dry with normal turgor. Normal color with no rashes, no lesions, and no evidence of cellulitis. MS/ Extremity: Pulses equal, no cyanosis. Neurovascular intact. Full, normal range of motion. Neuro: Awake and alert, GCS 15, oriented to person, place, time, and situation. Cranial nerves II-XII grossly intact. Motor strength 5/5 in all extremities. Sensory grossly intact. Cerebellar exam normal. Normal gait. Psych: Awake, alert, with orientation to person, place and time. Behavior, mood, and affect are within normal limits. 04:07 Abdomen/GI: Inspection: abdomen appears normal, Bowel sounds: normal, in all quadrants, Palpation: soft, nontender, in the epigastric area, right upper quadrant and left upper quadrant, Liver: no appreciated palpable abnormalities, Hernia: not appreciated, 04:07 Musculoskeletal/extremity: DVT Exam: No signs of deep vein thrombosis. no pain, no swelling, no tenderness, negative Homans' sign noted on exam, no appreciated bluish discoloration, no erythema, no increased warmth, 04:36 ECG was reviewed by the Attending Physician. [facility] Vital Signs: 03:32 BP 106 / 74; Pulse 77; Resp 17 S; Pulse Ox 98% on R/A; lg3 05:00 BP 107 / 69; Pulse 77; Resp 18 S; Pulse Ox 98% on R/A; lg3 MDM: 03:08 Patient medically screened. young 04:08 Differential diagnosis: appendicitis, bowel obstruction, gastritis, GI Bleed, young Hepatitis, Mesenteric ischemia or infarction, myocardia ischemia or infarction, non-specific abd pain, pancreatitis, Peptic Ulcer Disease, Perf. Duodenal Ulcer, Perf. Gastric Ulcer, Peritonitis, Ureterolithiasis, urinary tract infection. Data reviewed: vital signs, nurses notes, lab test result(s), radiologic studies, CT scan. Consideration of Admission/Observation Patient was admitted/placed on observation. Escalation of care including admission/observation considered. I considered the following discharge prescriptions or medication management in the emergency department Medications were administered in the Emergency Department. See MAR. Independent interpretation of the following test(s) in the Emergency Department EKG: See my EKG interpretation above. Test considered but Not performed: MRI: no mrcp. Care significantly affected by the following chronic conditions: Diabetes, Hypertension, Obesity, high cholesterol , anxiety and depression. Counseling: I had a detailed discussion with the patient and/or guardian regarding the historical points, exam findings, and any diagnostic results supporting the discharge/admit diagnosis, the presence of at least one elevated blood pressure reading (>120/80) during this emergency department visit, lab results, radiology results. 07/18 03:09 Order name: CBC with Diff; Complete Time: 04:02 [facility] 07/18 03:09 Order name: CMP; Complete Time: 04:14 [facility] 07/18 03:09 Order name: Lipase; Complete Time: :14 [facility] 07/18 03:09 Order name: Test, Urine; Complete Time: 04:14 [facility] 07/18 03:09 Order name: Urinalysis w/ reflexes; Complete Time: 04:14 [facility] 07/18 04:00 Order name: Lipid Profile; Complete Time: 04:14 EDMS 07/18 03:09 Order name: CT Abd/Pelvis - IV Contrast Only [facility] 07/18 03:49 Order name: EKG; Complete Time: 03:51 [facility] 07/18 03:09 Order name: IV Saline Lock; Complete Time: 03:30 [facility] 07/18 03:09 Order name: Labs collected and sent; Complete Time: 03:30 [facility] 07/18 03:49 Order name: EKG - Nurse/Tech; Complete Time: 04:16 [facility] EC:36 Rate is 84 beats/min. Rhythm is regular. QRS [place] is Normal. UT interval is normal. QRS young interval is normal. QT interval is prolonged at 482 msec. No Q waves. T waves are Normal. No ST changes noted. Clinical impression: NSR w/ Non-specific ST/T Changes and No evidence of ischemia. Interpreted by me. Reviewed by me. Administered Medications: 03:55 Drug: NS 0.9% IV 1000 ml IV at 1 bolus Per protocol; 1000 mL bolus Route: IV; Rate: 1 pf1 bolus; Site: left wrist; 04:26 Follow up: Response: No adverse reaction; Marked relief of symptoms pf1 03:55 Drug: Famotidine IVP 20 mg IVP once; dilute with 10 mL 0.9% NaCl; give over 2 minutes pf1 Route: IVP; Site: left wrist; 04:26 Follow up: Response: No adverse reaction; Marked relief of symptoms pf1 03:55 Drug: Ondansetron IVP 4 mg IVP once; over 2 minutes Route: IVP; Site: left wrist; pf1 04:26 Follow up: Response: No adverse reaction; Nausea unchanged pf1 03:55 Drug: morphine IVP or IV 4 mg IVP once over 4 mins Route: IVP; Infused Over: 4 mins; pf1 Site: left wrist; 04:27 Follow up: Response: No adverse reaction; Marked relief of symptoms; Pain is decreased pf1 04:17 Drug: NS 0.9% IV 1000 ml IV at 1 bolus Per protocol; 1000 mL bolus Route: IV; Rate: 1 lg3 bolus; Site: left wrist; 04:25 Drug: metoCLOPramide IVP 10 mg IVP once; over 1 to 2 minutes Route: IVP; Site: left pf1 wrist; 04:26 Drug: Rocephin IV 1 grams IV at per protocol once; Given slow IV push per pharmacy pf1 instructions Route: IV; Rate: per protocol; Site: left wrist; Disposition Summary: 07/18/23 05:15 Discharge Ordered Notes: Location: Home [facility] Problem: new young Symptoms: have improved young Condition: Stable young Diagnosis - Epigastric abdominal tenderness young - Abdominal pain, unspecified young Followup: young - With: Private Physician - When: 2 - 3 days - Reason: Recheck today's complaints, Continuance of care, Re-evaluation by your physician Followup: young - With: Laura Corona MD - When: 2 - 3 days - Reason: Recheck today's complaints, Re-evaluation by your physician Discharge Instructions: - Discharge Summary Sheet young - Abdominal Pain, Adult young - Abdominal Pain, Adult, [id number] [facility] Forms: - Medication Reconciliation Form [facility] - Thank You Letter [facility] - Antibiotic Education [facility] - Prescription Opioid Use [facility] - Patient Portal Instructions [facility] - Leadership Thank You Letter [facility] Prescriptions: - ondansetron 4 mg Oral Tablet,disintegrating - take 1 tablet ORAL route every 6-8 hours for 5 days; 20 tablet; Refills: 0, [facility] Product Selection Permitted - Pepcid 20 mg Oral Tablet - take 1 tablet ORAL route every 12 hours for 10 days; 20 tablet; Refills: 0, [facility] Product Selection Permitted - dicyclomine 20 mg Oral tablet - take 1 tablet ORAL route 4 times per day; 28 tablet; Refills: 0, Product [facility] Selection Permitted Signatures: Dispatcher [employer] Johan Espinal MD MD cha Bryson, James, RN RN jb4 Teodora Mcnair RN RN lg3 Beatriz Tracy RN RN pf1 Corrections: (The following items were deleted from the chart) 04:00 03:49 LIPID PROFILE+[email or web address] ordered. EDI DALEY
[2023-07-18 06:08] VITALS: BP 107/69; O2SAT 98
--- NOTE | 2023-07-18 07:45 | RAD REPORT ---
EXAM DESCRIPTION: CT ABDOMEN PELVIS WITH IV CONTRAST CLINICAL HISTORY: ABD PAIN COMPARISON: 06/09/2023. TECHNIQUE: CT ABDOMEN PELVIS WITH IV CONTRAST on 07/18/2023 3:09 AM CREAM MAKER This exam was performed according to our departmental dose-optimization program, which includes autom ated exposure control, adjustment of the mA and/or kV according to patient size and/or use of iterati ve reconstruction technique. FINDINGS: Lower lungs are clear. Abdomen: The liver is normal in appearance. There is minimal intrahepatic biliary dilatation. Cholecy stectomy was performed. The pancreas and spleen are normal in appearance. Adrenal glands are normal. There is a 2 mm upper pole right renal calculus. There is no hydronephrosis. Abdominal aorta is normal in course and caliber without aneurysm. There is no free air. There is no r etroperitoneal adenopathy. Pelvis: There is mild diverticulosis of the left colon. Urinary bladder is unremarkable. There is no free fluid. Uterus is normal in size. Appendix is normal. There are mild infiltrative changes through out the abdominal fat. Skeleton: There are no acute osseous findings. No suspicious bony lesions. IMPRESSION: No acute inflammatory process. Significantly improved infiltrative changes throughout the abdominal wall subcutaneous fat. Electronically signed by: Gualberto Mcmullen MD 07/18/2023 05:01 AM CREAM MAKER Due to temporary technical issues with the PACS/Fluency reporting system, reports are being signed by the in house radiologist without review as a courtesy to ensure prompt reporting. The interpreting r adiologist is fully responsible for the content of the report.
--- NOTE | 2023-07-18 12:19 | EKG ---
Test Date: 2023-07-18 Test Time: 04:27:29 Expansion Joint Finisher: CALVIN MEASUREMENT RESULTS: Intervals: Rate: 84 TX: 160 QRSD: 96 QT: 408 QTc: 482 Sandwich: P: 63 TX: 160 QRS: 85 T: 45 INTERPRETIVE STATEMENTS: Normal sinus rhythm Prolonged QT Abnormal ECG Compared to ECG 06/15/2023 17:44:30 Prolonged QT interval now present Electronically Signed On 07-18-23 12:18:36 [employer] by [employer]
== END ==
LOC: ER 03:00
DX: R10.816 Epigastric abdominal tenderness (principal); E11.9 Type 2 diabetes mellitus without complications; I10 Essential (primary) hypertension; E78.00 Pure hypercholesterolemia, unspecified
CPT/HCPCS: 93005; 85025; 36415; 81025; 80061; 81003; 83690; 80053; 74177; 96375; 96374; 99284; Q9967; J2765; J2405; J7030 ×2; J0696

== ENCOUNTER → 2023-08-08 | Emergency (ER) | payer OTHER ==
[~2023-08-08] MED LIST changes: -CEFTRIAXONE 1000 MG/VIAL ONE; +DIAZEPAM 5 MG TABLET ONE; -FAMOTIDINE 20 MG/2 ML VIAL IV ONE; +HYDROCODONE/APAP 5/325 MG TAB ONE; -METOCLOPRAMIDE 10 MG/2mL INJ ONE; -MORPHINE 4 MG/ML SYR ONE; -NA CHLORIDE 0.9% 1,000 ML ONE; -ONDANSETRON 4 MG/2 ML VIAL ONE
--- NOTE | 2023-08-08 15:44 | RAD REPORT ---
EXAM DESCRIPTION: RAD - Hand Right 3 View - 08/08/2023 2:29 pm CLINICAL HISTORY: PAIN COMPARISON: No comparisons TECHNIQUE: Right hand, 3 views. FINDINGS: No fracture is identified. There is no dislocation or periosteal reaction noted. No foreign body or other soft tissue abnormalit y. IMPRESSION: Negative right hand examination.
--- NOTE | 2023-08-08 15:45 | RAD REPORT ---
EXAM DESCRIPTION: RAD - Lumbar Spine 3 Views - 08/08/2023 2:30 pm CLINICAL HISTORY: PAIN COMPARISON: No comparisons TECHNIQUE: Lumbar spine, 3 views. FINDINGS: Lumbar vertebral bodies are normal in height and alignment. No fracture or acute bony proc ess seen. No disc space narrowing. No other significant findings. Right sacral neuro modulator in pl ledy. IMPRESSION: Negative Lumbar Spine examination.
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
[2023-08-08 17:48] VITALS: BP 130/87; TEMP 95.8; O2SAT 99
== END ==
LOC: ER 13:29
DX: M79.641 Pain in right hand (principal); M54.50 Low back pain, unspecified; Y04.8XXA Assault by other bodily force, initial encounter
CPT/HCPCS: 72100

== ENCOUNTER 2023-10-26 19:53 | Emergency (ER) | payer OTHER ==
[2023-10-26 21:09] LABS: Specific Gravity 1.018 (1.005-1.030)
[2023-10-26 21:11] LABS: Absolute Basophils 0.1 K/uL (0-0.5); Absolute Eosinophils 0.2 K/uL (0-0.5); Absolute Lymphocytes (CBC) 2.7 K/uL (0.7-4.9); Absolute Monocytes 0.6 K/uL (0.1-1.3); Absolute Neutrophil 3.1 K/uL (1.8-8.0); Basophils % 1.2 % (0-1.3); Eosinophils % 3.1 % (0-4.4); Hematocrit 35.3 % (36.0-45.0); Hemoglobin 12.2 g/dL (12.0-15.0); Lymphocytes % 40.7 % (15.3-44.8); MCH 29.3 pg (27.0-35.0); MCHC 34.6 g/dL (32.0-36.0); MCV 84.6 fL (80-100); MPV 7.1 fL (7.6-11.3); Monocytes % 8.9 % (3.3-12.3); Neutrophils % 46.1 % (41.7-73.7); Nucleated Red Blood Cells % 0.3 % (0-0); Platelets 215 thou/uL (152-406); RBC Red Blood Cell Count 4.17 M/uL (3.86-4.86); Red Cell Distribution Width 14.2 % (12.1-15.2)
[2023-10-26 21:13] LABS: Specific Gravity 1.018 (1.005-1.030); Sqamous Epithelial <5 /HPF (None Seen); Urine Bacteria <20 /HPF (<20); Urine Bilirubin NEGATIVE (Negative); Urine Blood Negative (Negative); Urine Clarity Clear (Clear); Urine Color Colorless (Yellow); Urine Culture Reflex Order NOT NEEDED; Urine Glucose 4+ (Over) (Negative); Urine Ketones NEGATIVE (Negative); Urine Microscopic Reflex YN ORDER UMIC; Urine Mucus Slight /HPF (None Seen); Urine Nitrite NEGATIVE (Negative); Urine Protein TRACE (Negative); Urine RBC <5 /HPF (None Seen); Urine Urobilinogen Normal (Normal); Urine WBC <5 /HPF (<5)
[2023-10-26] MEDS ORDERED: NA CHLORIDE 0.9% 1,000 ML ONE (21:20)
[2023-10-26] MEDS ORDERED: PROMETHAZINE INJ 25 MG/ML AMP ONE (21:20)
[2023-10-26] MEDS ORDERED: KETOROLAC 30 MG/ML INJ ONE (21:20)
[2023-10-26 21:38] LABS: Albumin 3.6 g/dL (3.4-5.0); Albumin/Globulin Ratio 0.9 (1.1-1.8); Anion Gap 12.1 mEq/L (5.0-15.0); Bilirubin Total 0.4 mg/dL (0.2-1.0); Globulin 3.8 g/dL (2.3-3.5); Protein, Total 7.4 g/dL (6.4-8.2)
[2023-10-26 21:39] LABS: Potassium 4.1 mEq/L (3.5-5.1)
--- NOTE | 2023-10-26 22:31 | RAD REPORT ---
EXAM DESCRIPTION: CTAbdomen Pelvis W Contrast - 10/26/2023 10:21 pm CLINICAL HISTORY: Abdominal pain. ABD PAIN COMPARISON: Abdomen Pelvis W Contrast dated 10/21/2023; Abdomen Pelvis W Contrast dated 07/18/2023; Abdomen Pelvis W Contrast dated 06/09/2023; Abdomen Pelvis W Contrast dated 02/09/2023 TECHNIQUE: Biphasic CT imaging of the abdomen and pelvis was performed with 100 ml non-ionic IV cont rast. All CT scans are performed using dose optimization technique as appropriate and may include automated exposure control or mA/KV adjustment according to patient size. FINDINGS: The lung bases are clear. The liver is diffusely fatty. Cholecystectomy. Spleen, pancreas, adrenal glands and kidneys are withi n normal limits. No bowel obstruction, free air, free fluid or abscess. Moderate stool throughout the colon. The appen jannette is normal. No evidence of significant lymphadenopathy. No suspicious bony findings. IMPRESSION: No acute intra-abdominal or pelvic finding.
--- NOTE | 2023-10-26 23:38 | ER ---
Nurse's Notes [facility] Name: Valentina Franco Age: 43 yrs Sex: Female : 1980 Arrival Date: 10/26/2023 Time: 19:53 Bed 13 Private MD: Yasmany Cook Diagnosis: Abdominal pain, unspecified;Palpitations Presentation: 10/25 20:30 Chief complaint: Patient states: RLQ pain of 10 with nausea,onset Tuesday with heart pf1 palpitations. Patient stated was seen here on Tuesday for the abdominal pain and was discharged. Patient stated follow up with her GI doctor today. Coronavirus screen: Client denies travel out of the [place] in the last 14 days. At this time, the client does not indicate any symptoms associated with coronavirus-19. Ebola Screen: Patient negative for fever greater than or equal to 101.5 degrees Fahrenheit, and additional compatible Ebola Virus Disease symptoms. Initial Sepsis Screen: Does the patient meet any 2 criteria? HR > 90 bpm. No. Patient's initial sepsis screen is negative. Does the patient have a suspected source of infection? No. Patient's initial sepsis screen is negative. Risk Assessment: Do you want to hurt yourself or someone else? Patient reports no desire to harm self or others. Onset of symptoms was October 21, 2023. 20:30 Method Of Arrival: Ambulatory pf1 20:30 Acuity: CYNTHIA 3 pf1 Triage Assessment: 20:15 General: Appears in no apparent distress. uncomfortable, well groomed, well developed, pf1 Behavior is calm, cooperative, appropriate for age, quiet. Pain: Complains of pain in abdomen. GI: Reports lower abdominal pain, nausea. 20:15 Cardiovascular: Reports palpitations. pf1 Historical: - Allergies: 20:34 No Known Allergies; pf1 - PMHx: 20:34 Anxiety; Depression; diabetes mellitus; High Cholesterol; Hypertensive disorder; Kidney pf1 stone; Pancreatitis; Sepsis; UTI; yeast infection; - PSHx: 20:34 foot surgery; Heart ablation; LIPOSUCTION TO CHIN; Tonsillectomy; Ligation of fallopian pf1 tube; Cholecystectomy; section; section; BBL; - Immunization history:: Adult Immunizations up to date, 4 doses of Moderna Last tetanus immunization: > 10 years ago Flu vaccine is up to date. - Infectious Disease History:: Denies. - Social history:: Smoking status: Patient denies any tobacco usage or history of. Patient/guardian denies using alcohol, street drugs. Screenin:30 [facility] ED Fall Risk Assessment (Adult) History of falling in the last 3 months, jw7 including since admission No falls in past 3 months (0 pts) Confusion or Disorientation No (0 pts) Intoxicated or Sedated No (0 pts) Impaired Gait No (0 pts) Mobility Assist Device Used No (0 pt) Altered Elimination No (0 pt) Score/Fall Risk Level 0 - 2 = Low Risk Oriented to surroundings, Maintained a safe environment, Educated pt \T\ family on fall prevention, incl call for assistance when getting out of bed. Abuse screen: Denies threats or abuse. Denies injuries from another. Nutritional screening: No deficits noted. Tuberculosis screening: No symptoms or risk factors identified. Assessment: 20:30 General: Appears in no apparent distress. uncomfortable, Behavior is calm, cooperative. jw7 20:30 Pain: Complains of pain in abdomen Pain does not radiate. Pain currently is 4 out of 10 jw7 on a pain scale. Quality of pain is described as crampy, Pain began suddenly, Is continuous. Neuro: Level of Consciousness is awake, alert, obeys commands, Oriented to person, place, time, situation. Cardiovascular: Reports palpitations, Heart tones S1 S2 present Capillary refill < 3 seconds Clubbing of nail beds is absent JVD is absent Patient's skin is warm and dry. Rhythm is sinus rhythm. Respiratory: Airway is patent Trachea midline Respiratory effort is even, unlabored, Respiratory pattern is regular, symmetrical, Breath sounds are clear bilaterally. GI: Abdomen is round non-distended, obese, Bowel sounds present X 4 quads. Abd is soft X 4 quads Abdomen is tender to palpation Reports nausea. : No deficits noted. No signs and/or symptoms were reported regarding the genitourinary system. EENT: No deficits noted. No signs and/or symptoms were reported regarding the EENT system. Derm: Skin is intact, is healthy with good turgor, Skin is dry, Skin is normal, Skin temperature is warm. Musculoskeletal: Circulation, motion, and sensation intact. Range of motion: intact in all extremities. 21:30 Reassessment: Patient appears in no apparent distress at this time. No changes from jw7 previously documented assessment. Patient and/or family updated on plan of care and expected duration. Pain level reassessed. Patient is alert, oriented x 3, equal unlabored respirations, skin warm/dry/pink. 22:30 Reassessment: Patient appears in no apparent distress at this time. Patient and/or jw7 family updated on plan of care and expected duration. Pain level reassessed. Patient is alert, oriented x 3, equal unlabored respirations, skin warm/dry/pink. Patient states feeling better. Patient states symptoms have improved. 23:30 Reassessment: Patient appears in no apparent distress at this time. No changes from jw7 previously documented assessment. Patient and/or family updated on plan of care and expected duration. Pain level reassessed. Patient is alert, oriented x 3, equal unlabored respirations, skin warm/dry/pink. Vital Signs: 20:30 BP 131 / 82; Pulse 95; Resp 18; Temp 98.7; Pulse Ox 97% on R/A; Weight 99.79 kg; Height pf1 5 ft. 4 in. ; Pain 10/10; 21:00 BP 113 / 77; Pulse 96; Resp 18 S; Pulse Ox 98% on R/A; jw7 22:00 BP 112 / 62; Pulse 96; Resp 20 S; Pulse Ox 96% on R/A; jw7 23:00 BP 115 / 72; Pulse 90; Resp 20 S; Pulse Ox 95% on R/A; jw7 23:30 BP 115 / 73; Pulse 89; Resp 19 S; Pulse Ox 97% on R/A; jw7 20:30 Body Mass Index 37.76 (99.79 kg, 162.56 cm) pf1 20:30 Pain Scale: Adult pf1 ED Course: 19:59 Patient arrived in ED. gm2 20:00 Yasmany Cook DO is Private Physician. gm2 20:02 [facility]pin [facility]. kb 20:02 Shireen Hurst MD is Attending Physician. kb 20:30 Patient has correct armband on for positive identification. Placed in gown. Bed in low jw7 position. Call light in reach. Side rails up X 1. Provided Education on: Use of Call LIght. 20:30 Arm band placed on. jw7 20:34 Triage completed. pf1 21:08 Missed attempt(s): 20 gauge in right forearm. Bleeding controlled, band aid applied, km8 catheter tip intact. 21:12 Urinalysis w/ reflexes Sent. pf1 21:12 Initial lab(s) drawn, by tx, sent to lab. Inserted saline lock: 22 gauge in left km8 antecubital area, using aseptic technique. 21:12 No provider procedures requiring assistance completed. Urine collected: clean catch pf1 specimen, clear, EKG done, by ED staff, reviewed by Milady BLAS. 21:13 Troponin High Sensitivity Sent. km8 21:13 CMP Sent. km8 21:13 Lipase Sent. km8 22:23 CT Abd/Pelvis - IV Contrast Only In Process Unspecified. EDMS 23:51 Xuan Guan RN is Primary Nurse. jw7 10/26 00:00 IV discontinued, intact, bleeding controlled, No redness/swelling at site. Pressure jw7 dressing applied. Administered Medications: 10/25 21:30 Drug: NS 0.9% IV 1000 ml IV at 1 bolus Per protocol; 1000 mL bolus Route: IV; Rate: 1 jw7 bolus; Site: right forearm; 10/26 00:09 Follow up: Response: No adverse reaction; IV Status: Completed infusion; IV Intake: jw7 1000ml 10/25 21:30 Drug: Promethazine IVP 12.5 mg IVP once Route: IVP; Site: right forearm; jw7 22:15 Follow up: Response: No adverse reaction; Adverse reaction, Physician notified; Nausea jw7 is decreased 21:30 Drug: Ketorolac IVP 15 mg IVP once Route: IVP; Site: right forearm; jw7 22:15 Follow up: Response: No adverse reaction; Marked relief of symptoms; Pain is decreased jw7 Medication: 10/26 00:00 VIS not applicable for this client. jw7 Intake: 00:09 IV: 1000ml; Total: 1000ml. jw7 Outcome: 10/25 23:37 Discharge ordered by . nita 10/26 00:00 Discharged to home ambulatory, jw7 Condition: stable Discharge instructions given to patient, Instructed on discharge instructions, follow up and referral plans. medication usage, Demonstrated understanding of instructions, follow-up care, medications, Prescriptions given X 1, 00:00 Patient left the ED. jw7 Signatures: Dispatcher [employer] EDMS Milady Turpin, ROOPA CARDOZO-Xuan Vaughan RN RN jw7 Beatriz Tracy RN RN pf1 Nataly Pryor 2 Li Woodall, PETE RN km8 Corrections: (The following items were deleted from the chart) 00:03 10/25 20:30 GI: Abdomen is round non-distended, obese, Bowel sounds present X 4 quads. jw7 Abd is soft X 4 quads Abdomen is tender to palpation jw7 10/26 00:09 00:09 Patient left the ED. jw7 jw7
--- NOTE | 2023-10-26 23:38 | EDPHYS ---
Physician Documentation [facility] Name: Valentina Franco Age: 43 yrs Sex: Female : 1980 Arrival Date: 10/26/2023 Time: 19:53 Bed 13 Private MD: Yasmany Cook ED Physician Shireen Hurst HPI: 10/25 23:31 This 43 yrs old Female presents to ER via Ambulatory with complaints of kb Abdominal Pain, FAST HEART RATE. 23:31 Patient is a 43-year-old female who presents for right-sided abdominal pain that kb started 6 days ago. Reports nausea. Denies vomiting and diarrhea fever, urinary symptoms. Also reports intermittent palpitations. Was seen by GI today in [place] and was told to come back to the ER for continued pain. . Historical: - Allergies: 20:34 No Known Allergies; pf1 - PMHx: 20:34 Anxiety; Depression; diabetes mellitus; High Cholesterol; Hypertensive disorder; Kidney pf1 stone; Pancreatitis; Sepsis; UTI; yeast infection; - PSHx: 20:34 foot surgery; Heart ablation; LIPOSUCTION TO CHIN; Tonsillectomy; Ligation of fallopian pf1 tube; Cholecystectomy; section; section; BBL; - Immunization history:: Adult Immunizations up to date, 4 doses of Moderna Last tetanus immunization: > 10 years ago Flu vaccine is up to date. - Infectious Disease History:: Denies. - Social history:: Smoking status: Patient denies any tobacco usage or history of. Patient/guardian denies using alcohol, street drugs. ROS: 21:18 Constitutional: As per HPI kb Exam: 21:18 Constitutional: This is a well developed, well nourished patient who is awake, alert, kb and in no acute distress. Head/Face: Normocephalic, atraumatic. ENT: Moist Mucous membranes Cardiovascular: Regular rate Respiratory: Respirations even and unlabored. No increased work of breathing. Talking in full sentences Skin: Warm, dry with normal turgor. Normal color. MS/ Extremity: Pulses equal, no cyanosis. Neurovascular intact. Full, normal range of motion. Neuro: Awake and alert, GCS 15, oriented to person, place, time, and situation. Moves all extremities. Normal gait. 21:18 Abdomen/GI: Inspection: abdomen appears normal, Bowel sounds: normal, Palpation: soft, in all quadrants, moderate abdominal tenderness, in the right upper quadrant and right lower quadrant, 21:19 ECG was reviewed by the Attending Physician. Vital Signs: 20:30 BP 131 / 82; Pulse 95; Resp 18; Temp 98.7; Pulse Ox 97% on R/A; Weight 99.79 kg; Height pf1 5 ft. 4 in. ; Pain 10/10; 21:00 BP 113 / 77; Pulse 96; Resp 18 S; Pulse Ox 98% on R/A; jw7 22:00 BP 112 / 62; Pulse 96; Resp 20 S; Pulse Ox 96% on R/A; jw7 23:00 BP 115 / 72; Pulse 90; Resp 20 S; Pulse Ox 95% on R/A; jw7 23:30 BP 115 / 73; Pulse 89; Resp 19 S; Pulse Ox 97% on R/A; jw7 20:30 Body Mass Index 37.76 (99.79 kg, 162.56 cm) pf1 20:30 Pain Scale: Adult pf1 MDM: 20:10 Patient medically screened. kb 21:19 Data reviewed: vital signs, nurses notes. kb 23:31 Differential diagnosis: appendicitis, non-specific abd pain, pancreatitis. Counseling: nita I had a detailed discussion with the patient and/or guardian regarding the historical points, exam findings, and any diagnostic results supporting the discharge/admit diagnosis, lab results, radiology results, the need for outpatient follow up, a family practitioner, a information strategist, to return to the emergency department if symptoms worsen or persist or if there are any questions or concerns that arise at home. 23:32 Management of patient was discussed with the following: Dr Ferris recommends kb discharge and cardiology follow up outpatient. . 10/25 20:11 Order name: CBC with Diff; Complete Time: 21:14 kb 10/25 20:11 Order name: CMP; Complete Time: 21:41 kb 10/25 20:11 Order name: Lipase; Complete Time: 21:41 kb 10/25 20:11 Order name: Test, Urine; Complete Time: 21:14 kb 10/25 20:11 Order name: Urinalysis w/ reflexes; Complete Time: 21:14 kb 10/25 20:16 Order name: Troponin High Sensitivity; Complete Time: 23:31 kb 10/25 20:12 Order name: CT Abd/Pelvis - IV Contrast Only; Complete Time: 22:37 kb 10/25 20:11 Order name: IV Saline Lock; Complete Time: 21:13 kb 10/25 20:11 Order name: Labs collected and sent; Complete Time: 21:13 kb 10/25 20:12 Order name: EKG - Nurse/Tech; Complete Time: 21:12 kb EC:19 Rate is 95 beats/min. Rhythm is regular. QRS [place] is Normal. [place] interval is normal at kb 146 msec. QRS interval is normal at 144 msec. QT interval is prolonged at 520 msec. Administered Medications: 21:30 Drug: NS 0.9% IV 1000 ml IV at 1 bolus Per protocol; 1000 mL bolus Route: IV; Rate: 1 jw7 bolus; Site: right forearm; 10/26 00:09 Follow up: Response: No adverse reaction; IV Status: Completed infusion; IV Intake: jw7 1000ml 10/25 21:30 Drug: Promethazine IVP 12.5 mg IVP once Route: IVP; Site: right forearm; jw7 22:15 Follow up: Response: No adverse reaction; Adverse reaction, Physician notified; Nausea jw7 is decreased 21:30 Drug: Ketorolac IVP 15 mg IVP once Route: IVP; Site: right forearm; jw7 22:15 Follow up: Response: No adverse reaction; Marked relief of symptoms; Pain is decreased jw7 Disposition Summary: 10/26/23 23:37 Discharge Ordered Notes: Location: Home kb Condition: Stable kb Diagnosis - Abdominal pain, unspecified kb - Palpitations kb Followup: kb - With: Emergency Department - When: As needed - Reason: Worsening of condition Followup: kb - With: Private Physician - When: 2 - 3 days - Reason: Recheck today's complaints, Continuance of care, Re-evaluation by your physician Discharge Instructions: - Discharge Summary Sheet kb - Abdominal Pain, Adult, [id number] kb - Palpitations, [id number] kb Forms: - Medication Reconciliation Form kb - Thank You Letter kb - Antibiotic Education kb - Prescription Opioid Use kb - Patient Portal Instructions kb - Leadership Thank You Letter kb - Work release form jw7 Prescriptions: - promethazine 25 mg Oral tablet - take 1 tablet ORAL route every 8 hours As needed; 10 tablet; Refills: 0, kb Product Selection Permitted Signatures: Dispatcher [employer] Milady Iglesias, CAS-C CAS-Xuan Vaughan, RN RN jw7 Beatriz Tracy RN RN pf1
[2023-10-27 13:08] VITALS: BP 131/82; TEMP 98.7; O2SAT 97
== END 2023-10-27 00:09 | disposition home or self-care (01) ==
LOC: ER 19:53
DX: R10.31 Right lower quadrant pain (principal); R00.2 Palpitations
CPT/HCPCS: 96361; 93005; 85025; 81001; 36415; 81025; 84484; 83690; 80053; 74177; 96375; 96374; 99284; Q9967; J2550; J7030

== ENCOUNTER 2024-02-15 15:21 | Emergency (ER) | payer OTHER ==
[2024-02-15] MEDS ORDERED: NA CHLORIDE 0.9% 1,000 ML ONE (16:09)
[2024-02-15 16:28] LABS: Hemoglobin 17.9 g/dL (12.0-15.0)
[2024-02-15 16:31] LABS: Absolute Basophils 0.5 K/uL (0-0.5); Absolute Eosinophils 0.2 K/uL (0-0.5); Absolute Lymphocytes (CBC) 0.8 K/uL (0.7-4.9); Absolute Monocytes 0.8 K/uL (0.1-1.3); Absolute Neutrophil 4.7 K/uL (1.8-8.0); Basophils % 6.4 % (0-1.3); Eosinophils % 3.1 % (0-4.4); Hematocrit 35.9 % (36.0-45.0); Lymphocytes % 11.8 % (15.3-44.8); MCV 84.5 fL (80-100); MPV 7.4 fL (7.6-11.3); Monocytes % 11.4 % (3.3-12.3); Neutrophils % 67.3 % (41.7-73.7); Nucleated Red Blood Cells % 0.3 % (0-0); Platelets 292 thou/uL (152-406); RBC Red Blood Cell Count 4.25 M/uL (3.86-4.86); Red Cell Distribution Width 13.4 % (12.1-15.2)
--- NOTE | 2024-02-15 16:35 | RAD REPORT ---
EXAM DESCRIPTION: RAD - Chest Single View - 02/15/2024 4:18 pm CLINICAL HISTORY: PALPITATIONS COMPARISON: Chest Single View dated 06/15/2023; Chest Single View dated 03/22/2023; Chest Pa And Lat ( 2 Views) dated 03/01/2023; Chest Single View dated 11/26/2022 FINDINGS: Lines: None. Lungs: No evidence of edema or pneumonia. Pleural: No significant pleural effusions or pneumothorax. Cardiac: The heart size is within normal limits. Mediastinum: Within normal limits. Bones: No acute fractures. Other: None IMPRESSION: No acute cardiopulmonary disease.
[2024-02-15 17:04] LABS: Anion Gap 15.5 mEq/L (5.0-15.0); BUN Blood Urea Nitrogen 13 mg/dL (7-18); Bicarbonate 23 mEq/L (21-32); Glomerular Filtration Rate 50 ml/min (=/>90); Glucose Level 399 mg/dL (74-106); Sodium Level 138 mEq/L (136-145)
[2024-02-15 17:05] LABS: Potassium 4.5 mEq/L (3.5-5.1); Troponin High Sensitivity < 3.0 pg/mL (<58.9)
[2024-02-15 17:06] LABS: MCH 28.2 pg (27.0-35.0)
[2024-02-15 17:07] LABS: MCHC 34.8 g/dL (32.0-36.0)
[2024-02-15 17:33] LABS: Band Neutrophils 2 % (0-1); Blood Morphology Comment NOT SEEN (NOT SEEN); Differential Total Cells Count 100; Eosinophils 2 % (0-3); Lymphocytes 38 % (15-42); Monocytes 5 % (0-10); Platelet Estimate ADEQ; Segmented Neutrophils 52 % (40-80)
--- NOTE | 2024-02-15 18:06 | EDPHYS ---
Physician Documentation [facility] Name: Valentina Franco Age: 44 yrs Sex: Female : 1980 Arrival Date: 02/15/2024 Time: 15:21 Bed 7 Private MD: ED Physician Tiburcio Linder HPI: 02/14 18:13 This 44 yrs old Female presents to ER via Ambulatory with complaints of Covid, kb Dizziness. 18:13 Pt is a 44 year old female who presents for palpitations that started today. States she kb was diagnosed with covid on Tuesday and has been in bed until today. States she got up today and has been moving around the house when palpitations began. States she is supposed to return to work tomorrow but isn't sure if she should. Historical: - Allergies: 15:40 No Known Allergies; cm10 - PMHx: 15:40 Anxiety; Depression; diabetes mellitus; High Cholesterol; Hypertensive disorder; Kidney cm10 stone; Pancreatitis; Sepsis; UTI; yeast infection; - PSHx: 15:40 BBL; section; LIPOSUCTION TO CHIN; Ligation of fallopian tube; foot surgery; cm10 Cholecystectomy; Heart ablation; section; Tonsillectomy; - Immunization history:: Adult Immunizations. - Infectious Disease History:: Denies. - Social history:: Smoking status: Patient denies any tobacco usage or history of. ROS: 17:10 Constitutional: As per HPI kb Exam: 16:18 Constitutional: This is a well developed, well nourished patient who is awake, alert, kb and in no acute distress. Head/Face: Normocephalic, atraumatic. ENT: Moist Mucous membranes Cardiovascular: Tachycardic rate Respiratory: Respirations even and unlabored. No increased work of breathing. Talking in full sentences Abdomen/GI: Soft, non-tender. No distention Skin: Warm, dry with normal turgor. Normal color. MS/ Extremity: Pulses equal, no cyanosis. Neurovascular intact. Full, normal range of motion. Neuro: Awake and alert, GCS 15, oriented to person, place, time, and situation. Moves all extremities. Normal gait. 16:18 ECG was reviewed by the Attending Physician. Vital Signs: 15:39 BP 123 / 69; Pulse 105; Resp 18; Temp 98.7(O); Pulse Ox 95% on R/A; Weight 90.26 kg; cm10 Height 5 ft. 4 in. ; Pain 7/10; 18:43 BP 129 / 77; Pulse 94; Resp 18; Pulse Ox 99% on R/A; ld1 15:39 Body Mass Index 34.16 (90.26 kg, 162.56 cm) cm10 15:39 Pain Scale: Adult cm10 MDM: 15:25 Patient medically screened. kb 18:11 Differential diagnosis: dehydration, covid, abnormal electrolytes. Data reviewed: vital kb signs, nurses notes. Test considered but Not performed: CT: ct chest considered but pt denies shortness of breath, resp even and unlabored, lungs clear bilaterally. External Records Reviewed: previous EKG compared to todays and similar. Counseling: I had a detailed discussion with the patient and/or guardian regarding the historical points, exam findings, and any diagnostic results supporting the discharge/admit diagnosis, lab results, radiology results, the need for outpatient follow up, a family practitioner, to return to the emergency department if symptoms worsen or persist or if there are any questions or concerns that arise at home. 02/14 15:41 Order name: Basic Metabolic Panel; Complete Time: 17:09 kb 02/14 15:41 Order name: CBC with Diff; Complete Time: 17:38 kb 02/14 15:41 Order name: Troponin HS; Complete Time: 17:09 kb 02/14 17:09 Order name: Manual Differential; Complete Time: 17:38 EDMS 02/14 15:41 Order name: XRAY Chest (1 view); Complete Time: 16:36 kb 02/14 15:41 Order name: Cardiac monitoring; Complete Time: 16:07 kb 02/14 15:41 Order name: EKG - Nurse/Tech; Complete Time: 16:07 kb 02/14 15:41 Order name: IV Saline Lock; Complete Time: 16:20 kb 02/14 15:41 Order name: Labs collected and sent; Complete Time: 16:20 kb 02/14 15:41 Order name: O2 Per Protocol; Complete Time: 15:55 kb 02/14 15:41 Order name: O2 Sat Monitoring; Complete Time: 15:55 kb EC:18 Rate is 96 beats/min. Rhythm is regular. QRS [place] is Normal. [place] interval is normal at kb 150 msec. QRS interval is normal at 138 msec. QT interval is prolonged at 543 msec. Administered Medications: 16:20 Drug: NS 0.9% IV 1000 ml IV at 1000 ml once Route: IV; Rate: 1000 ml; Site: right kc6 antecubital; 18:37 Follow up: Response: No adverse reaction; IV Status: Completed infusion; IV Intake: kc6 1000ml Disposition: 02/15 07:05 Co-signature as Attending Physician, Tiburcio Linder MD I reviewed the patient's care rn provided by the Advanced Practice Provider and agree with the diagnosis and treatment plan. Disposition Summary: 02/15/24 18:05 Discharge Ordered Notes: Location: Home kb Condition: Stable kb Diagnosis - Dehydration kb - SARS-associated coronavirus as the cause of diseases classified elsewhere kb Followup: kb - With: Emergency Department - When: As needed - Reason: Worsening of condition Followup: kb - With: Private Physician - When: 2 - 3 days - Reason: Recheck today's complaints, Continuance of care, Re-evaluation by your physician Discharge Instructions: - Discharge Summary Sheet kb - Dehydration, Adult, [id number] kb - COVID-19 kb - Viral Illness, Adult kb Forms: - Work release form kb - Medication Reconciliation Form kb - Antibiotic Education kb - Prescription Opioid Use kb - Patient Portal Instructions kb - Leadership Thank You Letter kb Signatures: Dispatcher [employer] EDMS Milady Turpin, DIRECTOR OF COMPLIANCE-C DIRECTOR OF COMPLIANCE-Ckb Tiburcio Linder MD MD rn Campbell, Kaitlyn, RN RN kc6 Loren Ortiz RN RN cm10 Corrections: (The following items were deleted from the chart) 02/14 15:42 15:42 BASIC METABOLIC PANEL+C.LAB.BRZ ordered. EDMS EDMS 15:42 15:42 CBC+H.LAB.BRZ ordered. EDMS EDMS 15:42 15:42 Troponin High Sensitivity+C.LAB.BRZ ordered. EDMS EDMS 15:42 15:42 Chest Single View+RAD.RAD.BRZ ordered. EDMS EDMS
--- NOTE | 2024-02-15 18:06 | ER ---
Nurse's Notes [facility] Name: Valentina Franco Age: 44 yrs Sex: Female : 1980 Arrival Date: 02/15/2024 Time: 15:21 Bed 7 Private MD: Diagnosis: Dehydration;SARS-associated coronavirus as the cause of diseases classified elsewhere Presentation: 02/14 15:39 Chief complaint: Patient states: Diagnosed with COVID on Tuesday. Today pt spiked a cm10 fever and when she got out of bed she felt her heart racing. Coronavirus screen: Client denies travel out of the [place] in the last 14 days. At this time, the client does not indicate any symptoms associated with coronavirus-19. Ebola Screen: Patient denies travel to an Ebola-affected area in the 21 days before illness onset. No symptoms or risks identified at this time. Initial Sepsis Screen: Does the patient meet any 2 criteria? No. Patient's initial sepsis screen is negative. Does the patient have a suspected source of infection? No. Patient's initial sepsis screen is negative. Risk Assessment: Do you want to hurt yourself or someone else? Patient reports no desire to harm self or others. Onset of symptoms was February 15, 2024. 15:39 Method Of Arrival: Ambulatory cm10 15:39 Acuity: CYNTHIA 3 cm10 Triage Assessment: 18:41 Pain: Denies pain. ld1 Historical: - Allergies: 15:40 No Known Allergies; cm10 - PMHx: 15:40 Anxiety; Depression; diabetes mellitus; High Cholesterol; Hypertensive disorder; Kidney cm10 stone; Pancreatitis; Sepsis; UTI; yeast infection; - PSHx: 15:40 BBL; section; LIPOSUCTION TO CHIN; Ligation of fallopian tube; foot surgery; cm10 Cholecystectomy; Heart ablation; section; Tonsillectomy; - Immunization history:: Adult Immunizations. - Infectious Disease History:: Denies. - Social history:: Smoking status: Patient denies any tobacco usage or history of. Screenin:45 [facility] ED Fall Risk Assessment (Adult) History of falling in the last 3 months, kc6 including since admission No falls in past 3 months (0 pts) Confusion or Disorientation No (0 pts) Intoxicated or Sedated No (0 pts) Impaired Gait No (0 pts) Mobility Assist Device Used No (0 pt) Altered Elimination No (0 pt) Score/Fall Risk Level 0 - 2 = Low Risk. Abuse screen: Denies threats or abuse. Denies injuries from another. Nutritional screening: No deficits noted. Tuberculosis screening: No symptoms or risk factors identified. Assessment: 15:45 General: Appears in no apparent distress. comfortable, well groomed, well developed, kc6 Behavior is calm, cooperative, appropriate for age, Reports chills for 0-12 hours, fever for 0-12 hours, feeling ill for 0-12 hours. Neuro: Level of Consciousness is awake, alert, obeys commands, Oriented to person, place, time, situation, Appropriate for age Reports dizziness, headache. Cardiovascular: Reports palpitations, Heart tones S1 S2 present Capillary refill < 3 seconds. Respiratory: Airway is patent Trachea midline Respiratory effort is even, unlabored, Respiratory pattern is regular, symmetrical. GI: Reports diarrhea, bloody stool, Patient currently denies abdominal pain, nausea, vomiting. : No signs and/or symptoms were reported regarding the genitourinary system. EENT: No signs and/or symptoms were reported regarding the EENT system. Derm: No signs and/or symptoms reported regarding the dermatologic system. Skin is intact, is healthy with good turgor, Skin is pink, warm \T\ dry. Musculoskeletal: No signs and/or symptoms reported regarding the musculoskeletal system. Circulation, motion, and sensation intact. Capillary refill < 3 seconds, Range of motion: intact in all extremities. 16:45 Reassessment: Patient appears in no apparent distress at this time. No changes from kc6 previously documented assessment. Patient and/or family updated on plan of care and expected duration. Pain level reassessed. Patient is alert, oriented x 3, equal unlabored respirations, skin warm/dry/pink. 17:45 Reassessment: Patient appears in no apparent distress at this time. No changes from kc6 previously documented assessment. Patient and/or family updated on plan of care and expected duration. Pain level reassessed. Patient is alert, oriented x 3, equal unlabored respirations, skin warm/dry/pink. 18:37 Reassessment: Patient appears in no apparent distress at this time. No changes from kc6 previously documented assessment. Patient and/or family updated on plan of care and expected duration. Pain level reassessed. Patient is alert, oriented x 3, equal unlabored respirations, skin warm/dry/pink. Vital Signs: 15:39 BP 123 / 69; Pulse 105; Resp 18; Temp 98.7(O); Pulse Ox 95% on R/A; Weight 90.26 kg; cm10 Height 5 ft. 4 in. ; Pain 7/10; 18:43 BP 129 / 77; Pulse 94; Resp 18; Pulse Ox 99% on R/A; ld1 15:39 Body Mass Index 34.16 (90.26 kg, 162.56 cm) cm10 15:39 Pain Scale: Adult cm10 ED Course: 15:24 Patient arrived in ED. mg5 15:24 Milady [facility]pin [facility]C [facility] kb 15:25 Tiburcio Linder MD is Attending Physician. kb 15:40 Triage completed. cm10 15:41 Arm band placed on Patient placed in an exam room, on a stretcher. cm10 15:45 Patient has correct armband on for positive identification. Bed in low position. Call kc6 light in reach. Side rails up X 1. traffic monitor specialist on. Pulse ox on. NIBP on. Warm blanket given. Pillow given. 15:45 Inserted saline lock: 20 gauge in right antecubital area, using aseptic technique. kc6 Blood collected. Flushed with 10 mL NS. 16:20 XRAY Chest (1 view) In Process Unspecified. EDMS 16:20 Ariana Pritchett, RN is Primary Nurse. kc6 18:39 No provider procedures requiring assistance completed. IV discontinued, intact, ld1 bleeding controlled, No redness/swelling at site. 18:40 Provided Education on: Medication. ld1 Administered Medications: 16:20 Drug: NS 0.9% IV 1000 ml IV at 1000 ml once Route: IV; Rate: 1000 ml; Site: right kc6 antecubital; 18:37 Follow up: Response: No adverse reaction; IV Status: Completed infusion; IV Intake: kc6 1000ml Medication: 18:40 VIS not applicable for this client. ld1 Intake: 18:37 IV: 1000ml; Total: 1000ml. kc6 Outcome: 18:05 Discharge ordered by . kb 18:40 Discharged to home ambulatory, ld1 18:40 Condition: stable 18:40 Discharge instructions given to patient, Instructed on discharge instructions, follow up and referral plans. Demonstrated understanding of instructions, follow-up care, 18:44 Patient left the ED. kc6 Signatures: Dispatcher [employer] Milady Iglesias, ROOPA CARDOZO-Janell Azul RN RN [email or web address] Ariana Pritchett RN RN kc6 Loren Ortiz RN RN cm10 Evi Yoder [facility] [place]
[2024-02-15 18:50] VITALS: TEMP 98.7
[2024-02-15 18:51] VITALS: BP 129/77; O2SAT 99
--- NOTE | 2024-02-16 13:07 | EKG ---
Test Date: 2024-02-15 Test Time: 16:05:08 History Professor: Tonya KOENIG MEASUREMENT RESULTS: Intervals: Rate: 96 NC: 150 QRSD: 138 QT: 430 QTc: 543 [place]: P: 75 NC: 150 QRS: 110 T: 51 INTERPRETIVE STATEMENTS: Sinus rhythm with fusion complexes Right bundle branch block Left posterior fascicular block Bifascicular block Abnormal ECG Compared to ECG 10/26/2023 21:05:11 Fusion complex(es) now present Bifascicular block still present Electronically Signed On 02-16-24 13:05:17 CDT by Mp Light
== END 2024-02-15 18:44 | disposition home or self-care (01) ==
LOC: ER 15:21
DX: E86.0 Dehydration (principal); U07.1 COVID-19
CPT/HCPCS: 85025; 80048; 36415; 84484; 71045; J7030; 93005

== ENCOUNTER 2024-02-18 19:10 | Inpatient (IN) | payer OTHER ==
[2024-02-18] MEDS ORDERED: ACETAMINOPHEN 325 MG TABLET PO PRN (21:09)
[2024-02-18] MEDS ORDERED: HYDROCODONE/APAP 5/325 MG TAB PO PRN (21:12)
[2024-02-18] MEDS ORDERED: SODIUM CHLORIDE 0.9% 10ML INJ IV PRN (21:12)
--- NOTE | 2024-02-18 21:15 | P.HP ---
Certification for Inpatient Patient admitted to: Inpatient With expected LOS: >2 Midnights Practitioner: I am a practitioner with admitting privileges, knowledge of patient current condition, hospital course, and medical plan of care. Services: Services provided to patient in accordance with Admission requirements found in Title 42 Section 412.3 of the Code of Federal Regulations Patient History Date of Service: 02/18/24 Reason for admission: Abdominal Pain History of Present Illness: 44-year-old female with past medical history of diabetes type 2, hypertension, obesity and hyperlipidemia transferred from outside ER where she presented with Intractable abdominal pain which has been going on for the last 1 week and has been progressively worsening and was seen in the ER found to be having hypertriglyceridemia and possible pancreatitis and was sent over here for further management . Patient still has nausea and vomiting. Recently had COVID-19 nearly 2 weeks ago. Complains of subjective fever and chills associated with dysuria as well She was admitted for inpatient care. Allergies No Known Allergies Allergy (Verified 09/16/17 03:51) Home medications list reviewed: Yes Home Medications: Metformin HCl 1,000 mg PO BID 09/16/17 Atorvastatin Calcium [Lipitor] 80 mg PO BEDTIME 12/07/21 Fenofibrate,Micronized [Fenofibrate] 1 tab PO DAILY 12/07/21 Fish Oil/Dha/Epa [Fish Oil 1,200 mg Fish Oil] 2 each PO BID #120 cap 11/28/22 Hydrocodone 10/APAP 325 [[place] 10/325] 1 tab PO Q6H PRN #30 tab 11/28/22 Hydrocortisone [Cortef*] 10 mg PO BID #90 tab 11/28/22 Insulin Aspart [Novolog Flexpen] 10 unit SQ TID 11/28/22 Insulin Glargine,Hum.rec.anlog [Basaglar Kwikpen U-100] 100 unit SQ BEDTIME 11/28/22 Phenazopyrididine [Pyridium*] 100 mg PO TID #10 tab 11/28/22 Promethazine Tab [Phenergan*] 25 mg PO Q6H PRN #30 tab 11/28/22 Ferrous Gluconate 324 mg PO TID #90 tab 06/11/23 Hydrocodone 5/APAP 325 [[place] 5/325*] 1 tab PO Q6H PRN #30 tab 06/11/23 Mupirocin Oint [Bactroban 2% Ointment] 1 inch TOP TID #1 tube 06/11/23 Smz./Tmp. [Bactrim Ds 800 MG/160 MG] 1 each PO DAILY #5 tab 06/11/23 - Past Medical/Surgical History Diabetic: Yes Past Medical History: Reviewed- Non-Contributory -: DIABETIC TYPE II -: CHOLESTEROL -: DEPRESSION Past Surgical History: Reviewed- Non-Contributory -: hernia repair -: heart ablation -: broke foot -: tonsillectomy -: KATTY -: X3 - Family History Family History: Reviewed- Non-Contributory - Family History Mother -: Diabetes - Social History Smoking Status: Never smoker Alcohol use: No CD- Drugs: No Caffeine use: Yes Review of Systems 10-point ROS is otherwise unremarkable Physical Examination - Vital Signs Temperature: 97.5 F Blood Pressure: 113/69 Pulse: 86 Respirations: 16 Pulse Ox (%): 94 - Physical Exam General: Alert, Oriented x3, Mild distress HEENT: Atraumatic, Normocephalic Neck: Supple, 2+ carotid pulse no bruit Respiratory: Clear to auscultation bilaterally, Normal air movement Cardiovascular: Normal pulses, Regular rate/rhythm Capillary refill: <2 Seconds Gastrointestinal: W/out hepatosplenomegaly, Tenderness Musculoskeletal: No clubbing, No swelling Integumentary: No rashes Neurological: Normal speech, Normal strength at 5/5 x4 extr Lymphatics: No axilla or inguinal lymphadenopathy Assessment and Plan - Plan Acute pancreatitis Monitor closely on telemetry Possibly induced by hypertriglyceridemia Aggressive hydration Pain control Started on clear liquid diet Will start on PPI Hypertension Antihypertensives titrated Continue home medications and titrate as needed Hyperlipidemia Will get a lipid panel Start gemfibrozil Diabetes Insulin sliding scale Accu-Chek before every meal and at bedtime Dehydration UTI Empirical antibiotics Titrate as needed GI/DVT prophylaxis Advanced directive full code Discharge Plan: Home Plan to discharge in: 48 Hours - Advance Directives Does patient have a Living Will: No Does patient have a Durable POA for Healthcare: No - Code Status/Comfort Care Code Status: Full Code Time Spent Managing Pts Care (In Minutes): 48
[2024-02-18] MEDS: gemfibroziL 600 MG TAB PO SCH (22:07)
[2024-02-18] MEDS: NA CHLORIDE 0.9% 1,000 ML IV SCH (22:07)
[2024-02-18] MEDS: MORPHINE 2 MG/ML SYR IV PRN (22:08)
[2024-02-18] MEDS ORDERED: GLUCAGON 1 MG/VIAL IM PRN (22:14)
[2024-02-18] MEDS ORDERED: D50W 25 GM/50 ML SYRINGE IV PRN (22:14)
[2024-02-18 22:52] VITALS: BMI 34.1
[2024-02-19 00:08] LABS: Absolute Basophils 0.3 K/uL (0-0.5); Absolute Eosinophils 0.3 K/uL (0-0.5); Absolute Lymphocytes (CBC) 1.2 K/uL (0.7-4.9); Absolute Monocytes 2.2 K/uL (0.1-1.3); Absolute Neutrophil 3.4 K/uL (1.8-8.0); Basophils % 4.5 % (0-1.3); Eosinophils % 3.6 % (0-4.4); Lymphocytes % 16.5 % (15.3-44.8); MCV 85.2 fL (80-100); MPV 7.8 fL (7.6-11.3); Monocytes % 29.2 % (3.3-12.3); Neutrophils % 46.2 % (41.7-73.7); Nucleated Red Blood Cells % 0.3 % (0-0); Platelets 252 thou/uL (152-406); RBC Red Blood Cell Count 3.64 M/uL (3.86-4.86); Red Cell Distribution Width 13.4 % (12.1-15.2)
[2024-02-19 00:19] LABS: HDL Cholesterol 35 mg/dL (40-60); Lipase 417 U/L (13-75)
[2024-02-19 00:30] LABS: LDL, Direct 92 mg/dL (100-129)
[2024-02-19 00:56] LABS: MCH 30.5 pg (27.0-35.0)
[2024-02-19 00:57] LABS: Hemoglobin 11.1 g/dL (12.0-15.0); MCHC 35.8 g/dL (32.0-36.0)
[2024-02-19 00:59] LABS: Albumin/Globulin Ratio 0.8 (1.1-1.8); Bilirubin Total 0.5 mg/dL (0.2-1.0); Phosphorus 2.3 mg/dL (2.5-4.9); Thyroid Stimulating Hormone 1.87 uIU/mL (0.358-3.740)
[2024-02-19 01:01] LABS: Specific Gravity > 1.030 (1.005-1.030); Sqamous Epithelial <5 /HPF (None Seen); Urine Bacteria None Seen /HPF (<20); Urine Bilirubin 1+ (Negative); Urine Blood 3+ (Negative); Urine Clarity Extremely Turbid (Clear); Urine Color Yellow (Yellow); Urine Culture Reflex Order REFLEXED; Urine Glucose 4+ (Over) (Negative); Urine Ketones 3+ (Negative); Urine Microscopic Reflex YN ORDER UMIC; Urine Mucus Slight /HPF (None Seen); Urine Nitrite NEGATIVE (Negative); Urine Protein 1+ (Negative); Urine RBC >50 /HPF (None Seen); Urine Urobilinogen 2+ (Normal); Urine WBC >50 /HPF (<5); Urine Yeast (Budding) Occasional /HPF (None Seen); Urine pH 5.5 (5.0-7.0)
[2024-02-19 01:01] LABS: Magnesium 1.4 mg/dL (1.6-2.4)
[2024-02-19 01:11] LABS: Band Neutrophils 8 % (0-1); Differential Total Cells Count 100; Eosinophils 4 % (0-3); Lymphocytes 40 % (15-42); Monocytes 1 % (0-10); Segmented Neutrophils 47 % (40-80)
[2024-02-19 01:12] LABS: Blood Morphology Comment NOT SEEN (NOT SEEN); Platelet Estimate ADEQ
[2024-02-19] MEDS ORDERED: D10W 125 ML IV PRN (02:14)
[2024-02-19 07:09] LABS: Absolute Basophils 0.1 K/uL (0-0.5); Absolute Eosinophils 0.2 K/uL (0-0.5); Absolute Lymphocytes (CBC) 1.9 K/uL (0.7-4.9); Absolute Monocytes 0.4 K/uL (0.1-1.3); Absolute Neutrophil 3.4 K/uL (1.8-8.0); Basophils % 1.4 % (0-1.3); Eosinophils % 3.5 % (0-4.4); Lymphocytes % 31.9 % (15.3-44.8); MCH 29.4 pg (27.0-35.0); MCV 86.5 fL (80-100); Monocytes % 6.4 % (3.3-12.3); Neutrophils % 56.8 % (41.7-73.7); Nucleated Red Blood Cells % 0.2 % (0-0); RBC Red Blood Cell Count 3.59 M/uL (3.86-4.86); Red Cell Distribution Width 13.8 % (12.1-15.2)
[2024-02-19 07:10] LABS: MPV 7.8 fL (7.6-11.3); Platelets 237 thou/uL (152-406)
[2024-02-19 07:11] LABS: Hemoglobin 10.6 g/dL (12.0-15.0)
[2024-02-19] MEDS: CEFTRIAXONE 1,000 MG in NA CHLORIDE 0.9% 50 ML IVPB SCH (08:46)
[2024-02-19] MEDS: PANTOPRAZOLE 40 MG INJ IVP SCH (08:47)
[2024-02-19] MEDS: gemfibroziL 600 MG TAB PO SCH (08:48)
[2024-02-19] MEDS: DOCOSAHEXANOIC AC/EPA 1000 MG PO SCH (08:48)
[2024-02-19] MEDS: INSULIN REGULAR (HUMAN) 100 UNIT/ML SQ SCH (08:57)
[2024-02-19] MEDS: ENOXAPARIN 40 MG/0.4 ML SQ SCH (08:57)
[2024-02-19 09:23] LABS: Albumin 3.1 g/dL (3.4-5.0); Albumin/Globulin Ratio 0.8 (1.1-1.8); Bilirubin Total 0.4 mg/dL (0.2-1.0); C-Reactive Protein 17.1 mg/L (<3.00); Protein, Total 7.1 g/dL (6.4-8.2)
[2024-02-19 09:24] LABS: Magnesium 1.5 mg/dL (1.6-2.4)
[2024-02-19] MEDS: Magnesium Sulfate 2gm IVPB 2 G/50 ML BAG IV ONE (10:23)
[2024-02-19] MEDS: D5 0.9 NS 1,000 ML IV SCH (14:30)
[2024-02-19 15:17] LABS: Potassium 4.1 mEq/L (3.5-5.1)
[2024-02-19 15:19] LABS: Albumin 3.1 g/dL (3.4-5.0); Albumin/Globulin Ratio 0.8 (1.1-1.8); Bilirubin Total 0.4 mg/dL (0.2-1.0); Protein, Total 7.1 g/dL (6.4-8.2)
[2024-02-19 15:22] LABS: Anion Gap 13.1 mEq/L (5.0-15.0)
--- NOTE | 2024-02-20 03:50 | P.PN ---
Date of Service: 02/19/24 Subjective patient's pain is improved. Patient's clinical symptoms are better. Triglyceride has improved as well. Physical Examination - Vital Signs Reviewed - Physical Exam General: Alert, Oriented x3, Mild distress Respiratory: Clear to auscultation bilaterally, Normal air movement Cardiovascular: Normal pulses, Regular rate/rhythm Gastrointestinal: W/out hepatosplenomegaly, minimal enderness Musculoskeletal: No clubbing, No swelling Neurological: no focal deficits Assessment and Plan - Assessment/Plan Acute pancreatitis secondary to hypertriglyceridemia continue with aggressive IV hydration and pain control. ; continue with Lopid and fish oil capsules. Continue with monitoring triglyceride levels and lipase levels. CT imaging is pending as well. Hypertension Antihypertensives titrated Continue home medications and titrate as needed Diabetes Insulin sliding scale Accu-Chek before every meal and at bedtime Dehydration UTI Empirical antibiotics Titrate as needed GI/DVT prophylaxis Advanced directive full code Discharge Plan: Home Plan to discharge in: 48 Hours - Advance Directives Does patient have a Living Will: No Does patient have a Durable POA for Healthcare: No - Code Status/Comfort Care Code Status: Full Code Time Spent Managing Pts Care (In Minutes): 48
[2024-02-20 08:34] LABS: Absolute Basophils 0.1 K/uL (0-0.5); Absolute Eosinophils 0.3 K/uL (0-0.5); Absolute Lymphocytes (CBC) 1.5 K/uL (0.7-4.9); Absolute Monocytes 0.6 K/uL (0.1-1.3); Absolute Neutrophil 2.2 K/uL (1.8-8.0); Basophils % 2.3 % (0-1.3); Eosinophils % 6.4 % (0-4.4); Lymphocytes % 32.6 % (15.3-44.8); MCV 85.3 fL (80-100); MPV 7.9 fL (7.6-11.3); Monocytes % 12.7 % (3.3-12.3); Nucleated Red Blood Cells % 0.3 % (0-0); Platelets 274 thou/uL (152-406); RBC Red Blood Cell Count 3.87 M/uL (3.86-4.86)
--- NOTE | 2024-02-20 08:39 | P.PN ---
Subjective Date of Service: 02/20/24 Chief Complaint: Abdominal Pain Subjective: No new changes <Nona Ashby - Last Filed: 02/20/24 08:37> Date of Service: 02/20/24 <Sabine Carroll Fay - Last Filed: 02/20/24 11:54> Review of Systems Gastrointestinal: Nausea, Abdominal Pain Other: anxiety <Nona Ashby - Last Filed: 02/20/24 08:37> Physical Examination - Vital Signs Temperature: 97.5 F Blood Pressure: 118/48 Pulse: 85 Respirations: 21 Pulse Ox (%): 98 - Physical Exam General: Alert, In no apparent distress, Oriented x3 HEENT: Atraumatic, Normocephalic Neck: 2+ carotid pulse no bruit Respiratory: Normal air movement Cardiovascular: Normal pulses, Regular rate/rhythm Capillary refill: <2 Seconds Gastrointestinal: Tenderness (upper abd) Musculoskeletal: No clubbing, No swelling Integumentary: No rashes Neurological: Normal speech, Normal tone, Normal affect Lymphatics: No axilla or inguinal lymphadenopathy External genitalia: Deferred Rectal: Deferred - Studies Laboratory Data (last 24 hrs) 02/19/24 02/19/24 02/19/24 14:10 14:10 11:58 Sodium 138 Potassium 4.1 BUN 12 Creatinine 0.85 Glucose 261 H Magnesium 2.0 Total Bilirubin 0.4 AST 44 H ALT 52 Alkaline Phosphatase 51 Triglycerides 2330 H Lipase 146 H 02/19/24 08:32 Sodium 136 Potassium 4.0 BUN 15 Creatinine 0.82 Glucose 247 H Magnesium 1.5 L Total Bilirubin 0.4 AST 43 H ALT 51 Alkaline Phosphatase 51 Triglycerides Lipase 229 H <Nona Ashby - Last Filed: 02/20/24 08:37> - Studies Laboratory Data (last 24 hrs) 02/20/24 02/20/24 02/19/24 10:18 08:23 14:10 WBC 4.70 Hgb 12.2 D Hct 33.0 L Plt Count 274 Sodium 135 L Potassium 4.3 BUN 8 Creatinine 0.79 Glucose 298 H Magnesium 2.0 Total Bilirubin AST ALT Alkaline Phosphatase Triglycerides Lipase 113 H 02/19/24 02/19/24 14:10 11:58 WBC Hgb Hct Plt Count Sodium 138 Potassium 4.1 BUN 12 Creatinine 0.85 Glucose 261 H Magnesium Total Bilirubin 0.4 AST 44 H ALT 52 Alkaline Phosphatase 51 Triglycerides 2330 H Lipase 146 H <Sabine Carroll - Last Filed: 02/20/24 11:54> Assessment And Plan - Plan Assessment and Plan - Assessment/Plan Acute pancreatitis secondary to hypertriglyceridemia continue with aggressive IV hydration and pain control. ; continue with Lopid and fish oil capsules. Continue with monitoring triglyceride levels and lipase levels. CT imaging is pending as well. Hypertension Antihypertensives titrated Continue home medications and titrate as needed Diabetes Insulin sliding scale Accu-Chek before every meal and at bedtime Dehydration UTI Empirical antibiotics Titrate as needed GI/DVT prophylaxis Advanced directive full code Discharge Plan: Home Plan to discharge in: 48 Hours - Advance Directives Does patient have a Living Will: No Does patient have a Durable POA for Healthcare: No - Code Status/Comfort Care Code Status: Full Code Discharge Plan: Home Plan to discharge in: 48 Hours <Nona Ashby - Last Filed: 02/20/24 08:37> - Plan Pt seen and examined. I agree with the note by the CANNON PINION ADJUSTER. Will transfer pt to the ICU for insulin infusion. Her triglyceride is 2330 <- > 3940. Lipase is 113 <- 146. Continue home meds for other chronic medical problems. <Sabine Carroll - Last Filed: 02/20/24 11:54>
[2024-02-20 08:52] LABS: Hemoglobin 12.2 g/dL (12.0-15.0); MCH 31.5 pg (27.0-35.0)
[2024-02-20] MEDS: BUSPIRONE HCL 5 MG TABLET PO SCH (09:03)
[2024-02-20] MEDS: FLUOXETINE 20 MG CAP PO SCH (09:03)
--- NOTE | 2024-02-20 10:24 | RAD REPORT ---
EXAM DESCRIPTION: CTAbdomen Pelvis W Contrast - 02/20/2024 9:47 am CLINICAL HISTORY: pancreatitis/hematuria COMPARISON: Abdomen Pelvis W Contrast dated 10/26/2023; Abdomen Pelvis W Contrast dated 10/21/2023 ; Abdomen Pelvis W Contrast dated 07/18/2023; Abdomen Pelvis W Contrast dated 06/09/2023; Abdomen Pelvis Wo Contrast dated 02/09/2024 TECHNIQUE: CT of the abdomen and pelvis was performed with IV contrast. All CT scans are performed using dose optimization technique as appropriate and may include automated exposure control or mA/KV adjustment according to patient size. FINDINGS: Lower chest: Mild cardiomegaly. Coronary calcifications. Circumferentially thickened dista l esophagus which could reflect mild esophagitis. Liver: Hepatic steatosis. No focal liver mass. Hepatomegaly. Biliary: Cholecystectomy Stomach: No significant focal abnormality. Duodenum: No significant focal abnormality. Pancreas: No significant abnormality. Spleen: No significant abnormality. Adrenal: No suspicious lesions. Kidney/ureter: No hydronephrosis. 3 mm stone upper pole right kidney. Lobular appearance of the kidne ys bilaterally but no suspicious renal mass. Retroperitoneum: No retroperitoneal adenopathy. Vascular: No aneurysm. Bowel: Colonic diverticulosis without diverticulitis.. Peritoneum: No ascites or free air. Bladder: Bladder stimulator Reproductive: No adnexal masses. Bones: No acute fracture. Other: n/a IMPRESSION: Nonobstructing stone in the right kidney. No other findings to explain hematuria. No CT evidence of acute pancreatitis.
[2024-02-20 11:14] LABS: Anion Gap 14.3 mEq/L (5.0-15.0)
[2024-02-20 11:16] LABS: Potassium 4.3 mEq/L (3.5-5.1)
[2024-02-20] MEDS: ONDANSETRON 4 MG/2 ML VIAL IV PRN (11:30)
[2024-02-20] MEDS ORDERED: D10W 125 ML IV PRN (11:50)
[2024-02-20] MEDS: INSULIN REGULAR, HUMAN 100 UNIT in NA CHLORIDE 0.9% 100 ML IV SCH (14:05)
[2024-02-20] MEDS: PROMETHAZINE 25 MG TABLET ONE (14:39)
[2024-02-20] MEDS: MORPHINE 4 MG/ML SYR IV PRN (14:40)
[2024-02-20] MEDS: PROMETHAZINE 25 MG TABLET PO ONE (14:41)
[2024-02-20] MEDS: TRAZODONE 150 MG TAB PO SCH (20:22)
[2024-02-21 06:16] LABS: Absolute Basophils 0.1 K/uL (0-0.5); Absolute Eosinophils 0.2 K/uL (0-0.5); Absolute Lymphocytes (CBC) 1.9 K/uL (0.7-4.9); Absolute Monocytes 0.4 K/uL (0.1-1.3); Absolute Neutrophil 1.6 K/uL (1.8-8.0); Basophils % 1.4 % (0-1.3); Eosinophils % 5.5 % (0-4.4); Hematocrit 30.5 % (36.0-45.0); Lymphocytes % 45.6 % (15.3-44.8); MCH 28.6 pg (27.0-35.0); MCHC 33.2 g/dL (32.0-36.0); Monocytes % 9.9 % (3.3-12.3); Neutrophils % 37.6 % (41.7-73.7); Nucleated Red Blood Cells % 0.2 % (0-0); RBC Red Blood Cell Count 3.55 M/uL (3.86-4.86); Red Cell Distribution Width 13.9 % (12.1-15.2)
[2024-02-21 06:19] LABS: MPV 7.7 fL (7.6-11.3); Platelets 245 thou/uL (152-406)
[2024-02-21 06:20] LABS: Hemoglobin 10.1 g/dL (12.0-15.0)
[2024-02-21 06:23] LABS: Anion Gap 12.3 mEq/L (5.0-15.0); Phosphorus 2.6 mg/dL (2.5-4.9)
[2024-02-21 06:24] LABS: Magnesium 1.8 mg/dL (1.6-2.4); Potassium 3.3 mEq/L (3.5-5.1)
[2024-02-21] MEDS: MAGNESIUM SULFATE 1 gm IVPB 1 GM/100 ML BAG IV ONE (08:01)
[2024-02-21] MEDS: POTASSIUM CL SA 10 MEQ TAB PO ONE (08:03)
--- NOTE | 2024-02-21 10:38 | P.PN ---
Subjective Date of Service: 02/21/24 Chief Complaint: Abdominal Pain Pt is resting comfortably in bed. She complains of slight abdominal pain. Triglyceride is is elevated 2531 <- 2330. Will continue insulin drip. Will add D5NS at 75cc/hr. No other complaints. Review of Systems General: Unremarkable Eyes: Unremarkable ENT: Unremarkable Respiratory: Unremarkable Cardiovascular: Unremarkable Gastrointestinal: Abdominal Pain Genitourinary: Unremarkable Musculoskeletal: Unremarkable Integumentary: Unremarkable Neurological: Unremarkable Lymphatics: Unremarkable Physical Examination - Vital Signs Temperature: 97.1 F Blood Pressure: 126/79 Pulse: 73 Respirations: 12 Pulse Ox (%): 97 - Physical Exam General: Alert, In no apparent distress, Oriented x3 HEENT: Atraumatic, Normocephalic, PERRLA Neck: Supple, 2+ carotid pulse no bruit Respiratory: Clear to auscultation bilaterally, Normal air movement Cardiovascular: No edema, Normal pulses, Regular rate/rhythm, Normal S1 S2 Capillary refill: <2 Seconds Gastrointestinal: Normal bowel sounds, Soft and benign, Non-distended, Tenderness Musculoskeletal: No clubbing, No swelling, No contractures Integumentary: No rashes, No breakdown, No significant lesion Neurological: Normal gait, Normal speech, Normal strength at 5/5 x4 extr, Normal tone, Sensation intact, Cranial nerves 3-12 intact Lymphatics: No axilla or inguinal lymphadenopathy - Studies Laboratory Data (last 24 hrs) 02/21/24 02/21/24 02/21/24 05:33 05:33 05:33 WBC 4.20 L Hgb 10.1 L D Hct 30.5 L Plt Count 245 Sodium 142 D Potassium 3.3 L D BUN 6 L Creatinine 0.55 Glucose 136 H Phosphorus 2.6 Magnesium 1.8 Triglycerides 2531 H Lipase 02/20/24 10:18 WBC Hgb Hct Plt Count Sodium 135 L Potassium 4.3 BUN 8 Creatinine 0.79 Glucose 298 H Phosphorus Magnesium Triglycerides Lipase 113 H Assessment And Plan - Plan Acute pancreatitis secondary to hypertriglyceridemia: Will continue insulin drip with D5NS IVF. Continue prn pain med, Lopid and fish oil capsules. Will trend lipase. CT abd/pelvis shows Nonobstructing stone in the right kidney. No other findings to explain hematuria. No CT evidence of acute pancreatitis. Lipase improved from 417 to 113. Hypertension: Will continue home med. Diabetes: Continue accuchek, SSI and ADA diet. Dehydration: Will continue IVF UTI: Continue rocephin and f/u urine cx. GI ppx: protonix DVT ppx: SCD Code: full
[2024-02-21] MEDS: D5 0.9 NS 1,000 ML IV SCH ×2 (11:18→21:09)
[2024-02-21] MEDS: PROMETHAZINE 25 MG TABLET PO PRN (11:47)
[2024-02-21] MEDS: FLUCONAZOLE 100 MG TAB PO ONE (15:49)
[2024-02-21] MEDS ORDERED: PROMETHAZINE INJ 25 MG/ML AMP IV PRN (18:24)
[2024-02-22 06:42] LABS: Absolute Basophils 0.1 K/uL (0-0.5); Absolute Eosinophils 0.3 K/uL (0-0.5); Absolute Lymphocytes (CBC) 1.8 K/uL (0.7-4.9); Absolute Monocytes 0.4 K/uL (0.1-1.3); Absolute Neutrophil 1.8 K/uL (1.8-8.0); Basophils % 1.3 % (0-1.3); Eosinophils % 6.2 % (0-4.4); Hematocrit 33.7 % (36.0-45.0); Lymphocytes % 40.4 % (15.3-44.8); MCH 28.7 pg (27.0-35.0); MCHC 33.6 g/dL (32.0-36.0); MCV 85.6 fL (80-100); Monocytes % 10.1 % (3.3-12.3); Nucleated Red Blood Cells % 0.2 % (0-0); RBC Red Blood Cell Count 3.94 M/uL (3.86-4.86); Red Cell Distribution Width 14.3 % (12.1-15.2)
[2024-02-22 06:48] LABS: Hemoglobin 11.3 g/dL (12.0-15.0); MPV 7.3 fL (7.6-11.3); Platelets 266 thou/uL (152-406)
[2024-02-22 06:58] LABS: Anion Gap 15.4 mEq/L (5.0-15.0); Potassium 3.4 mEq/L (3.5-5.1)
[2024-02-22] MEDS: INSULIN GLARGINE 100 UNIT/ML SQ ONE (07:31)
[2024-02-22] MEDS: NA CHLORIDE 0.9% 1,000 ML IV SCH (07:32)
[2024-02-22 07:45] VITALS: O2SAT 96
[2024-02-22] MEDS ORDERED: KCL 20 MEQ/100 mL IVPB 20 MEQ/100 ML BAG IV SCH (08:00)
[2024-02-22] MEDS: POTASSIUM CL SA 10 MEQ TAB PO ONE (08:10)
--- NOTE | 2024-02-22 08:55 | P.PN ---
Subjective Date of Service: 02/22/24 Chief Complaint: Abdominal Pain Subjective: Improving (feeling much better, nausea decreased. Insulin drip and D5NS stopped. Lantus 50u given, will change to ADA diet and reassess later today) <Nona Ashby - Last Filed: 02/22/24 08:50> Date of Service: 02/22/24 <Sabine Carroll Fay - Last Filed: 02/22/24 10:19> Review of Systems 10-point ROS is otherwise unremarkable <Nona Ashby - Last Filed: 02/22/24 08:50> Physical Examination - Vital Signs Temperature: 97.5 F Blood Pressure: 109/73 Pulse: 68 Respirations: 18 Pulse Ox (%): 96 - Physical Exam General: Alert, In no apparent distress, Oriented x3 HEENT: Atraumatic, Normocephalic Neck: Supple Respiratory: Clear to auscultation bilaterally Cardiovascular: Normal pulses, Regular rate/rhythm, Normal S1 S2 Capillary refill: <2 Seconds Gastrointestinal: Normal bowel sounds, Soft and benign Musculoskeletal: No clubbing Integumentary: No rashes Neurological: Normal speech, Normal tone, Normal affect Lymphatics: No axilla or inguinal lymphadenopathy External genitalia: Deferred Rectal: Deferred - Studies Laboratory Data (last 24 hrs) 02/22/24 02/22/24 02/22/24 05:59 05:59 05:59 WBC 4.40 Hgb 11.3 L D Hct 33.7 L Plt Count 266 Sodium 145 Potassium 3.4 L BUN 4 L Creatinine 0.68 Glucose 127 H Triglycerides 642 H Microbiology Data (last 24 hrs): 02/19/24 00:14 Clean Catch Urine [place] Count - Final BETWEEN 10,000 & 100,000 CFU/ML 02/19/24 00:14 Clean Catch Urine - Final <Nona Ashby - Last Filed: 02/22/24 08:50> - Studies Laboratory Data (last 24 hrs) 02/22/24 02/22/24 02/22/24 05:59 05:59 05:59 WBC 4.40 Hgb 11.3 L D Hct 33.7 L Plt Count 266 Sodium 145 Potassium 3.4 L BUN 4 L Creatinine 0.68 Glucose 127 H Triglycerides 642 H Microbiology Data (last 24 hrs): 02/19/24 00:14 Clean Catch Urine [place] Count - Final BETWEEN 10,000 & 100,000 CFU/ML 02/19/24 00:14 Clean Catch Urine - Final <Sabine Carroll - Last Filed: 02/22/24 10:19> Assessment And Plan - Plan Assessment and Plan - Assessment/Plan Acute pancreatitis secondary to hypertriglyceridemia continue with aggressive IV hydration and pain control. ; continue with Lopid and fish oil capsules. Continue with monitoring triglyceride levels and lipase levels. CT imaging is pending as well. 02/22/24 triglycerides down significantly today, nausea and pain resolved Hypertension Antihypertensives titrated Continue home medications and titrate as needed Diabetes Insulin sliding scale Accu-Chek before every meal and at bedtime Lantus 50U sq daily Dehydration UTI Empirical antibiotics Titrate as needed no growth and no bacteria, + yeast. Diflucan x 1 dose given 02/22/24 resolved GI/DVT prophylaxis Advanced directive full code Discharge Plan: Home Plan to discharge in: 24 Hours - Advance Directives Does patient have a Living Will: No Does patient have a Durable POA for Healthcare: No - Code Status/Comfort Care Code Status: Full Code <Nona Ashby - Last Filed: 02/22/24 08:50> - Plan Pt seen and examined. I agree with the note by the TECHNICAL PROPOSAL WRITER. Triglyceride dropped to 642 <- 2532 <- 2330. Will stop heparin drip. Continue accuchelk, SSI, lantus and ADA diet. Will continue lopid and fish oil. Continue home med for other chronic medical problems. <Sabine Carroll - Last Filed: 02/22/24 10:19>
[2024-02-22] MEDS: INSULIN REGULAR (HUMAN) 100 UNIT/ML SQ SCH (11:28)
--- NOTE | 2024-02-22 11:38 | P.DS ---
Admission Date: 02/18/24 Discharge Date: 02/22/24 Reason for Admission: Abdominal Pain Brief History of Present Illness: 44-year-old female with past medical history of diabetes type 2, hypertension, obesity and hyperlipidemia transferred from outside ER where she presented with Intractable abdominal pain which has been going on for the last 1 week and has been progressively worsening and was seen in the ER found to be having hypertriglyceridemia and possible pancreatitis and was sent over here for further management. Patient still has nausea and vomiting. Recently had COVID- 19 nearly 2 weeks ago. Complains of subjective fever and chills associated with dysuria as well She was admitted for inpatient care. Hospital Course: Ms. Franco did well over the course of her hospitalization. She was started on fish oil and fenofibrate which halved her triglycerides. For better blood glucose control and further reduction of triglycerides, she was placed in ICU on a insulin drip along with the previously mentioned medications. This morning she is A&O x 3, without complaints of nausea, happy to go home. She will continue her regular medications, monitor her blood glucose, with the addition of iron already sent to the pharmacy, and a new prescription for Phenergan 25 mg p.o. as needed and a refill of atorvastatin 80 mg p.o. nightly. <Nona Ashby - Last Filed: 02/22/24 11:42> Admission Date: 02/18/24 Discharge Date: 02/22/24 Hospital Course: Pt seen and examined. I agree with the note by the IMPLEMENTATION ANALYST. Triglyceride level dropped to 642. Will continue fish oil and lopid. Pt is feeling better. Ok to discharge pt. <Sabine Carroll - Last Filed: 02/22/24 14:11> Disposition: ROUTINE DISCHARGE Discharge Condition: GOOD Vital Signs/Physical Exam: Temp Pulse Resp BP Pulse Ox 97.5 F 68 16 106/65 92 02/22/24 09:00 02/22/24 11:00 02/22/24 11:00 02/22/24 11:00 02/22/24 11:00 General: Alert, In no apparent distress, Oriented x3 HEENT: Atraumatic, Normocephalic Neck: Supple Respiratory: Clear to auscultation bilaterally, Normal air movement Cardiovascular: Regular rate/rhythm, Normal S1 S2 Capillary refill: <2 Seconds Gastrointestinal: Soft and benign Musculoskeletal: No clubbing, No swelling Integumentary: No rashes Neurological: Normal speech, Normal tone, Normal affect Lymphatics: No axilla or inguinal lymphadenopathy External genitalia: Deferred Rectal: Deferred Laboratory Data at Discharge: WBC 4.40 thou/uL (4.3-10.9) 02/22/24 05:59 Hgb 11.3 g/dL (12.0-15.0) L D 02/22/24 05:59 Hct 33.7 % (36.0-45.0) L 02/22/24 05:59 Plt Count 266 thou/uL (152-406) 02/22/24 05:59 Sodium 145 mEq/L (136-145) 02/22/24 05:59 Potassium 3.4 mEq/L (3.5-5.1) L 02/22/24 05:59 BUN 4 mg/dL (7-18) L 02/22/24 05:59 Creatinine 0.68 mg/dL (0.55-1.02) 02/22/24 05:59 Glucose 127 mg/dL (74-106) H 02/22/24 05:59 Phosphorus 2.6 mg/dL (2.5-4.9) 02/21/24 05:33 Magnesium 1.8 mg/dL (1.6-2.4) 02/21/24 05:33 Total Bilirubin 0.4 mg/dL (0.2-1.0) 02/19/24 14:10 AST 44 U/L (15-37) H 02/19/24 14:10 ALT 52 U/L (13-56) 02/19/24 14:10 Alkaline Phosphatase 51 U/L (45-117) 02/19/24 14:10 Triglycerides 642 mg/dL (<150) H 02/22/24 05:59 Cholesterol 348 mg/dL (<200) H 02/18/24 23:15 LDL Cholesterol Direct 92 mg/dL (100-129) L 02/18/24 23:15 HDL Cholesterol 35 mg/dL (40-60) L 02/18/24 23:15 Cholesterol/HDL Ratio 9.94 02/18/24 23:15 Lipase 113 U/L (13-75) H 02/20/24 10:18 <Ashby,Nona Ricardo - Last Filed: 02/22/24 11:42> Vital Signs/Physical Exam: Temp Pulse Resp BP Pulse Ox 98.1 F 78 16 110/73 96 02/22/24 12:00 02/22/24 12:00 02/22/24 12:00 02/22/24 12:00 02/22/24 12:00 Laboratory Data at Discharge: WBC 4.40 thou/uL (4.3-10.9) 02/22/24 05:59 Hgb 11.3 g/dL (12.0-15.0) L D 02/22/24 05:59 Hct 33.7 % (36.0-45.0) L 02/22/24 05:59 Plt Count 266 thou/uL (152-406) 02/22/24 05:59 Sodium 145 mEq/L (136-145) 02/22/24 05:59 Potassium 3.4 mEq/L (3.5-5.1) L 02/22/24 05:59 BUN 4 mg/dL (7-18) L 02/22/24 05:59 Creatinine 0.68 mg/dL (0.55-1.02) 02/22/24 05:59 Glucose 127 mg/dL (74-106) H 02/22/24 05:59 Phosphorus 2.6 mg/dL (2.5-4.9) 02/21/24 05:33 Magnesium 1.8 mg/dL (1.6-2.4) 02/21/24 05:33 Total Bilirubin 0.4 mg/dL (0.2-1.0) 02/19/24 14:10 AST 44 U/L (15-37) H 02/19/24 14:10 ALT 52 U/L (13-56) 02/19/24 14:10 Alkaline Phosphatase 51 U/L (45-117) 02/19/24 14:10 Triglycerides 642 mg/dL (<150) H 02/22/24 05:59 Cholesterol 348 mg/dL (<200) H 02/18/24 23:15 LDL Cholesterol Direct 92 mg/dL (100-129) L 02/18/24 23:15 HDL Cholesterol 35 mg/dL (40-60) L 02/18/24 23:15 Cholesterol/HDL Ratio 9.94 02/18/24 23:15 Lipase 113 U/L (13-75) H 02/20/24 10:18 <GlenPadillakathy Aponte - Last Filed: 02/22/24 14:11> Diet: ADA Activity: Ad kimberly <Nona Ashby - Last Filed: 02/22/24 11:42> <Sabine Carroll - Last Filed: 02/22/24 14:11> Home Medications: Metformin HCl 1,000 mg PO BID 09/16/17 Fenofibrate,Micronized [Fenofibrate] 1 tab PO DAILY 12/07/21 Fish Oil/Dha/Epa [Fish Oil 1,200 mg Fish Oil] 2 each PO BID #120 cap 11/28/22 Insulin Aspart [Novolog Flexpen] 10 unit SQ TID 11/28/22 Insulin Glargine,Hum.rec.anlog [Basaglar Kwikpen U-100] 100 unit SQ BEDTIME 11/28/22 Ferrous Gluconate 324 mg PO TID #90 tab 06/11/23 Atorvastatin Calcium [Lipitor] 80 mg PO BEDTIME #60 tab 02/22/24 Buspirone HCl [Buspar*] 5 mg PO BID tab 02/22/24 Promethazine Tab [Phenergan*] 25 mg PO Q6H PRN #24 tab 02/22/24 New Medications: Atorvastatin Calcium [Lipitor] 80 mg PO BEDTIME #60 tab Promethazine Tab [Phenergan*] 25 mg PO Q6H PRN #24 tab PRN Reason: Nausea / Vomiting Physician Discharge Instructions: PROBLEM: Pancreatitis GOAL: Clear understanding of disease process INSTRUCTIONS: Physician Discharge Instructions: Take all medications as ordered Follow-up with primary care provider in 1 to 2 weeks Please call the inpatient unit for any questions or concerns regarding hospital stay Return to the ER for worsening symptoms Diet: ADA Activity: Ad kimberly DME DME: Date Ordered: Name of Company: [employer] Services Needed: None Name of Company: Date or Referral: IMMUNIZATION Influenza Vaccine Indicated: Influenza Vaccine Given: Date Given: Pneumonia Vaccine Indicated: No Pneumonia Vaccine Given: Date Given: Ms. Franco did well over the course of her hospitalization. She was started on fish oil and fenofibrate which halved her triglycerides. For better blood glucose control and further reduction of triglycerides, she was placed in ICU on a insulin drip along with the previously mentioned medications. This morning she is A&O x 3, without complaints of nausea, happy to go home. She will continue her regular medications, monitor her blood glucose, with the addition of iron already sent to the pharmacy, and a new prescription for Phenergan 25 mg p.o. as needed and a refill of atorvastatin 80 mg p.o. nightly. Assessment: Insulin-dependent diabetes Hyperlipidemia Dehydration Acute kidney injury New prescriptions: Iron 324mg po daily Phenergan 25mg po q6h prn Refill - Atorvastatin 80mg po q HS Followup: Yasmany Cook DO [Primary Care Provider] -
[2024-02-22 12:39] VITALS: BP 110/73; TEMP 98.1
== END 2024-02-22 13:00 | disposition home or self-care (01) | DRG 439 ==
LOC: 2ND 19:10 → 3RD-ICU 02-20 13:55
PROVIDERS: ADMIT Family Medicine; ATTEND Hospitalist
DX: K85.90 Acute pancreatitis without necrosis or infection, unspecified (principal); N17.9 Acute kidney failure, unspecified; N39.0 Urinary tract infection, site not specified; E11.9 Type 2 diabetes mellitus without complications; I10 Essential (primary) hypertension; E78.1 Pure hyperglyceridemia; E78.5 Hyperlipidemia, unspecified; F41.9 Anxiety disorder, unspecified; E86.0 Dehydration; E66.9 Obesity, unspecified; Z79.4 Long term (current) use of insulin; Z86.16 Personal history of COVID-19; Z68.34 Body mass index [BMI] 34.0-34.9, adult; Z79.84 Long term (current) use of oral hypoglycemic drugs; Z90.49 Acquired absence of other specified parts of digestive tract; Z79.899 Other long term (current) drug therapy
CPT/HCPCS: 36415; 74177; 80048; 80053; 80061; 81001; 82947; 83690; 83735; 84100; 84443; 84478; 85025; 86140; 87086; 87088; J0696; J1650; J2270; J2405; J2470; J3475; J7030; J7042; Q0169; Q9967

== ENCOUNTER 2024-04-17 00:42 | Emergency (ER) | payer OTHER ==
[2024-04-17] MEDS ORDERED: KETOROLAC 30 MG/ML INJ ONE (01:33)
[2024-04-17] MEDS ORDERED: NA CHLORIDE 0.9% 1,000 ML ONE (01:33)
[2024-04-17 02:06] LABS: Urine Clarity Clear (Clear); Urine Color Colorless (Yellow)
[2024-04-17 02:07] LABS: Specific Gravity 1.028 (1.005-1.030); Sqamous Epithelial <5 /HPF (None Seen); Urine Bacteria None Seen /HPF (<20); Urine Bilirubin NEGATIVE (Negative); Urine Blood Negative (Negative); Urine Culture Reflex Order NOT NEEDED; Urine Glucose 4+ (Over) (Negative); Urine Ketones NEGATIVE (Negative); Urine Microscopic Reflex YN ORDER UMIC; Urine Mucus Slight /HPF (None Seen); Urine Nitrite NEGATIVE (Negative); Urine Protein TRACE (Negative); Urine RBC <5 /HPF (None Seen); Urine Urobilinogen Normal (Normal); Urine WBC None Seen /HPF (<5); Urine pH 6.5 (5.0-7.0)
[2024-04-17 02:34] LABS: Hematocrit 30.8 % (36.0-45.0); MCV 84.4 fL (80-100); MPV 8.5 fL (7.6-11.3); Platelets 283 thou/uL (152-406); RBC Red Blood Cell Count 3.65 M/uL (3.86-4.86)
[2024-04-17] MEDS ORDERED: HYDROCODONE/APAP 7.5/325 MG TAB ONE (02:40)
[2024-04-17 02:49] LABS: MCH 27.7 pg (27.0-35.0); MCHC 32.8 g/dL (32.0-36.0)
[2024-04-17 02:50] LABS: Hemoglobin 10.1 g/dL (12.0-15.0)
[2024-04-17 03:18] LABS: Band Neutrophils 2 % (0-1); Differential Total Cells Count 100; Eosinophils 2 % (0-3); Lymphocytes 50 % (15-42); Monocytes 8 % (0-10); Reactive Lymphocytes 2 %; Segmented Neutrophils 36 % (40-80)
[2024-04-17 03:19] LABS: Blood Morphology Comment NOT SEEN (NOT SEEN); Platelet Estimate ADEQ
[2024-04-17 03:35] LABS: Albumin 2.7 g/dL (3.4-5.0); Albumin/Globulin Ratio 0.8 (1.1-1.8); Anion Gap 12.8 mEq/L (5.0-15.0); Bilirubin Total 0.3 mg/dL (0.2-1.0); Globulin 3.5 g/dL (2.3-3.5); Protein, Total 6.2 g/dL (6.4-8.2)
[2024-04-17 03:36] LABS: Potassium 3.8 mEq/L (3.5-5.1)
--- NOTE | 2024-04-17 03:45 | ER ---
Nurse's Notes [facility] Name: Valentina Franco Age: 44 yrs Sex: Female : 1980 Arrival Date: 04/17/2024 Time: 00:42 Bed 17 Private MD: Yasmany Cook Diagnosis: Dysuria Presentation: 04/17 00:54 Chief complaint: Patient states: lower abdominal pain/ pelvic X3 weeks. i thought it lg3 was a yeast infection and started medication but its not doing anything. i have diabetes and i haven't been able to control my sugars. Coronavirus screen: Client denies travel out of the [place] in the last 14 days. At this time, the client does not indicate any symptoms associated with coronavirus-19. Ebola Screen: No symptoms or risks identified at this time. Initial Sepsis Screen: Does the patient meet any 2 criteria? No. Patient's initial sepsis screen is negative. Does the patient have a suspected source of infection? No. Patient's initial sepsis screen is negative. Risk Assessment: Do you want to hurt yourself or someone else? Patient reports no desire to harm self or others. Onset of symptoms is unknown. 00:54 Method Of Arrival: Ambulatory lg3 00:54 Acuity: CYNTHIA 3 lg3 Triage Assessment: 00:56 General: Appears in no apparent distress. uncomfortable, Behavior is calm, cooperative. lg3 Pain: Complains of pain in pelvis. EENT: No deficits noted. No signs and/or symptoms were reported regarding the EENT system. Neuro: No deficits noted. [place] Agitation-Sedation Scale (RASS): 0 - Alert and Calm Level of Consciousness is awake, alert, obeys commands, Oriented to person, place, time, situation. Cardiovascular: No deficits noted. Denies chest pain, shortness of breath, Capillary refill < 3 seconds Clubbing of nail beds is absent JVD is absent Patient's skin is warm and dry. Respiratory: No deficits noted. Airway is patent Respiratory effort is even, unlabored, Respiratory pattern is regular, symmetrical. GI: No signs and/or symptoms were reported involving the gastrointestinal system. Abdomen is round non-distended, obese. : Reports burning with urination, cramping, pain in suprapubic area. Derm: No signs and/or symptoms reported regarding the dermatologic system. Skin is intact, is healthy with good turgor, Skin is dry, Skin is normal, Skin temperature is warm. Musculoskeletal: No deficits noted. No signs and/or symptoms reported regarding the musculoskeletal system. Circulation, motion, and sensation intact. Range of motion: intact in all extremities. 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 - Infectious Disease History:: Denies. - Social history:: Smoking status: Patient denies any tobacco usage or history of. Patient/guardian denies using alcohol, street drugs. - Family history:: not pertinent. Screenin:42 [facility] ED Fall Risk Assessment (Adult) History of falling in the last 3 months, rg5 including since admission No falls in past 3 months (0 pts) Confusion or Disorientation No (0 pts) Intoxicated or Sedated No (0 pts) Impaired Gait No (0 pts) Mobility Assist Device Used No (0 pt) Altered Elimination No (0 pt) Score/Fall Risk Level 0 - 2 = Low Risk Oriented to surroundings, Maintained a safe environment, Hourly rounding (assess needs \T\ fall precautionary measures) done. Abuse screen: Denies threats or abuse. Nutritional screening: No deficits noted. Tuberculosis screening: No symptoms or risk factors identified. Assessment: 01:42 General: Appears in no apparent distress. Behavior is calm, cooperative, appropriate rg5 for age. Pain: Complains of pain in abdomen Pain radiates to back Pain currently is 10 out of 10 on a pain scale. Quality of pain is described as aching, stabbing. Neuro: Level of Consciousness is awake, alert, obeys commands, Oriented to person, place, time. Cardiovascular: Patient's skin is warm and dry. Rhythm is sinus rhythm. Respiratory: Airway is patent Trachea midline Respiratory effort is even, unlabored. GI: Abdomen is round obese, Bowel sounds present X 4 quads. Abd is soft and non tender Reports lower abdominal pain. : Reports pain with urination. EENT: No deficits noted. Derm: Skin is intact, Skin is dry, Skin is normal, Skin temperature is warm. Musculoskeletal: Amputation of Circulation, motion, and sensation intact. Range of motion: intact in all extremities. 02:35 Reassessment: Patient and/or family updated on plan of care and expected duration. Pain rg5 level reassessed. Patient is alert, oriented x 3, equal unlabored respirations, skin warm/dry/pink. 03:19 Reassessment: Patient and/or family updated on plan of care and expected duration. Pain rg5 level reassessed. Patient is alert, oriented x 3, equal unlabored respirations, skin warm/dry/pink. Vital Signs: 00:54 BP 140 / 82; Pulse 98; Resp 17 S; Temp 98.4(O); Pulse Ox 99% on R/A; Weight 96.62 kg lg3 (R); Height 5 ft. 4 in. (R); 01:42 BP 118 / 65; Pulse 89; Resp 16; Temp 98.3(O); Pulse Ox 99% on R/A; Pain 10/10; rg5 02:35 BP 107 / 54; Pulse 85; Resp 17; Temp 98.3(O); Pain 9/10; rg5 03:18 BP 112 / 62; Pulse 85; Resp 17; Pulse Ox 97% ; rg5 00:54 Body Mass Index 36.56 (96.62 kg, 162.56 cm) lg3 01:42 Pain Scale: Adult rg5 02:35 Pain Scale: Adult rg5 Oz Coma Score: 01:42 Eye Response: spontaneous(4). Motor Response: obeys commands(6). Verbal Response: rg5 oriented(5). Total: 15. ED Course: 00:46 Patient arrived in ED. gm2 00:46 Yasmany Cook DO is Private Physician. gm2 00:49 Braxton Vizcaino MD is Attending Physician. rt 00:56 Triage completed. lg3 00:56 Arm band placed on right wrist. lg3 01:00 Door closed. Noise minimized. Warm blanket given. Verbal reassurance given. rg5 01:10 Missed attempt(s): 20 gauge in left forearm. rg5 01:16 Victorino Rosenberg, RN is Primary Nurse. rg5 01:36 Inserted saline lock: 20 gauge in right wrist, using aseptic technique. Flushed with 10 kmf mL NS. 01:42 Patient has correct armband on for positive identification. Bed in low position. Call rg5 light in reach. Side rails up X 1. 01:42 No provider procedures requiring assistance completed. rg5 01:53 Awaiting lab results. rg5 03:57 Provided Education on: post er care. rg5 03:57 IV discontinued, bleeding controlled, No redness/swelling at site. Pressure dressing rg5 applied. Administered Medications: 01:40 Drug: NS 0.9% IV 1000 ml IV at 1 bolus Per protocol; 1000 mL bolus Route: IV; Rate: 1 rg5 bolus; Site: right wrist; 02:31 Follow up: IV Status: Completed infusion; IV Intake: 1000ml al5 01:40 Drug: TORadol - Ketorolac IVP 15 mg IVP once Route: IVP; Site: right wrist; rg5 02:31 Follow up: Response: No adverse reaction al5 02:42 Drug: Hydrocodone-Acetaminophen PO (7.5 mg-325 mg) 1 tabs PO once Route: PO; rg5 03:07 Follow up: Response: No adverse reaction rg5 03:55 Drug: Gabapentin PO 300 mg PO once Route: PO; rg5 03:58 Follow up: Response: No adverse reaction rg5 Medication: 01:42 VIS not applicable for this client. rg5 Intake: 02:31 IV: 1000ml; Total: 1000ml. al5 Outcome: 03:44 Discharge ordered by . rt 03:57 Discharged to home ambulatory, rg5 03:57 Condition: stable 03:57 Instructed on discharge instructions, follow up and referral plans. Demonstrated understanding of instructions, follow-up care, medications, Prescriptions given X 1, 04:00 Patient left the ED. rg5 Signatures: Teodora Mcnair RN RN lg3 Braxton Vizcaino MD MD rt Mitchell, Ginger gm2 Andreea Tobias kmf Victorino Rosenberg RN RN rg5 Ashley Acharya RN RN al5 Corrections: (The following items were deleted from the chart) 00:57 00:56 Home Meds: atorvastatin oral; lg3 emma3 00:57 00:56 Home Meds: Jardiance oral; lg3 lg3 01:41 00:56 LMP 09/2023, unknown lg3 rg5
--- NOTE | 2024-04-17 03:45 | EDPHYS ---
Physician Documentation [facility] Name: Valentina Franco Age: 44 yrs Sex: Female : 1980 Arrival Date: 04/17/2024 Time: 00:42 Bed 17 Private MD: Yasmany Cook ED Physician Braxton Vizcaino HPI: 04/17 02:03 This 44 yrs old Female presents to ER via Ambulatory with complaints of Pelvic rt Pain. 02:03 Patient presents to the ED with lower abdominal/pelvic pain. Patient states that her OB rt treated her for a yeast infection with cream and pills, to no relief. She states that her diabetes is not well-controlled and that her sugars been elevated. Is concerned that she has UTI. Denies other acute complaints at this time, symptoms are moderate in severity, no other aggravating alleviating factors.. 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 - Infectious Disease History:: Denies. - Social history:: Smoking status: Patient denies any tobacco usage or history of. Patient/guardian denies using alcohol, street drugs. - Family history:: not pertinent. ROS: 02:03 Constitutional: Negative for fever, chills, and weight loss, Cardiovascular: Negative rt for chest pain, palpitations, and edema, Respiratory: Negative for shortness of breath, cough, wheezing, and pleuritic chest pain, MS/Extremity: Negative for injury and deformity, Skin: Negative for injury, rash, and discoloration, Neuro: Negative for headache, weakness, numbness, tingling, and seizure, 02:03 Abdomen/GI: Positive for abdominal pain, Negative for nausea and vomiting, Exam: 02:03 Constitutional: This is a well developed, well nourished patient who is awake, alert, rt and in no acute distress. Head/Face: Normocephalic, atraumatic. Chest/axilla: Normal chest wall appearance and motion. Nontender with no deformity. No lesions are appreciated. Cardiovascular: Regular rate and rhythm with a normal S1 and S2. No gallops, murmurs, or rubs. Normal PMI, no JVD. No pulse deficits. Respiratory: Lungs have equal breath sounds bilaterally, clear to auscultation and percussion. No rales, rhonchi or wheezes noted. No increased work of breathing, no retractions or nasal flaring. Skin: Warm, dry with normal turgor. Normal color with no rashes, no lesions, and no evidence of cellulitis. MS/ Extremity: Pulses equal, no cyanosis. Neurovascular intact. Full, normal range of motion. Neuro: Awake and alert, GCS 15, oriented to person, place, time, and situation. Cranial nerves II-XII grossly intact. Motor strength 5/5 in all extremities. Sensory grossly intact. Cerebellar exam normal. Normal gait. 02:03 Abdomen/GI: Mild tenderness to the suprapubic region without rebound, guarding, distention, Vital Signs: 00:54 BP 140 / 82; Pulse 98; Resp 17 S; Temp 98.4(O); Pulse Ox 99% on R/A; Weight 96.62 kg lg3 (R); Height 5 ft. 4 in. (R); 01:42 BP 118 / 65; Pulse 89; Resp 16; Temp 98.3(O); Pulse Ox 99% on R/A; Pain 10/10; rg5 02:35 BP 107 / 54; Pulse 85; Resp 17; Temp 98.3(O); Pain 9/10; rg5 03:18 BP 112 / 62; Pulse 85; Resp 17; Pulse Ox 97% ; rg5 00:54 Body Mass Index 36.56 (96.62 kg, 162.56 cm) lg3 01:42 Pain Scale: Adult rg5 02:35 Pain Scale: Adult rg5 Oz Coma Score: 01:42 Eye Response: spontaneous(4). Motor Response: obeys commands(6). Verbal Response: rg5 oriented(5). Total: 15. MDM: 01:04 Patient medically screened. rt 03:46 Differential Diagnosis UTI, dysuria, hyperglycemia. Data reviewed: vital signs, nurses rt notes, lab test result(s). I considered the following discharge prescriptions or medication management in the emergency department Medications were administered in the Emergency Department. See MAR. Test considered but Not performed: CT: Patient with elevated lipase, suspect this due to hyperlipidemia, has a chronic elevated lipase, signs and symptoms are not consistent with an acute pancreatitis. I did explain at length test results with the patient, offered CT scan, ever, she does not wish to obtain CT scan at this time. Patient to follow-up as an outpatient, return precautions were discussed.. Care significantly affected by the following chronic conditions: Diabetes. Counseling: I had a detailed discussion with the patient and/or guardian regarding the historical points, exam findings, and any diagnostic results supporting the discharge/admit diagnosis, lab results, the need for outpatient follow up, to return to the emergency department if symptoms worsen or persist or if there are any questions or concerns that arise at home. Response to treatment: the patient's symptoms have markedly improved after treatment. 04/17 01:13 Order name: CBC with Diff; Complete Time: 03:22 rt 04/17 01:13 Order name: CMP; Complete Time: 03:38 rt 04/17 01:13 Order name: Lipase; Complete Time: 03:38 rt 04/17 01:13 Order name: Test, Urine; Complete Time: 02:26 rt 04/17 01:13 Order name: Urinalysis w/ reflexes; Complete Time: 02:26 rt 04/17 01:49 Order name: Glucose, Ancillary Testing; Complete Time: 02:26 EDMS 04/17 02:48 Order name: Glucose, Ancillary Testing; Complete Time: 03:02 EDMS 04/17 02:54 Order name: Manual Differential; Complete Time: 03:22 EDMS 04/17 01:13 Order name: IV Saline Lock; Complete Time: 01:40 rt 04/17 01:13 Order name: Labs collected and sent; Complete Time: :40 rt 04/17 01:13 Order name: Accucheck; Complete Time: 01:40 rt Administered Medications: 01:40 Drug: NS 0.9% IV 1000 ml IV at 1 bolus Per protocol; 1000 mL bolus Route: IV; Rate: 1 rg5 bolus; Site: right wrist; 02:31 Follow up: IV Status: Completed infusion; IV Intake: 1000ml al5 01:40 Drug: TORadol - Ketorolac IVP 15 mg IVP once Route: IVP; Site: right wrist; rg5 02:31 Follow up: Response: No adverse reaction al5 02:42 Drug: Hydrocodone-Acetaminophen PO (7.5 mg-325 mg) 1 tabs PO once Route: PO; rg5 03:07 Follow up: Response: No adverse reaction rg5 03:55 Drug: Gabapentin PO 300 mg PO once Route: PO; rg5 03:58 Follow up: Response: No adverse reaction rg5 Disposition Summary: 04/17/24 03:44 Discharge Ordered Notes: Location: Home rt Problem: new rt Symptoms: have improved rt Condition: Stable rt Diagnosis - Dysuria rt Followup: rt - With: Private Physician - When: 2 - 3 days - Reason: Followup: rt - With: Emergency Department - When: As needed - Reason: Worsening of condition Discharge Instructions: - Discharge Summary Sheet rt - Dysuria rt Forms: - Medication Reconciliation Form rt - Antibiotic Education rt - Prescription Opioid Use rt - Patient Portal Instructions rt - Leadership Thank You Letter rt Prescriptions: - gabapentin 300 mg Oral capsule - take 1 capsule ORAL route 3 times per day; 21 capsule; Refills: 0, Product rt Selection Permitted Signatures: Dispatcher [employer] Teodora Espinoza RN RN lg3 Braxton Vizcaino MD MD rt Victorino Rosenberg RN RN rg5 Ashley Acharya RN al5 Corrections: (The following items were deleted from the chart) 00:57 00:56 Home Meds: atorvastatin oral; lg3 lg3 00:57 00:56 Home Meds: Jardiance oral; lg3 lg3 01:13 01:13 CBC+H.LAB.BRZ ordered. EDMS EDMS 01:13 01:13 COMPREHENSIVE METABOLIC PANEL+C.LAB.BRZ ordered. EDMS EDMS 01:13 01:13 LIPASE+C.LAB.BRZ ordered. EDMS EDMS :13 01:13 Test, Urine+UC.LAB.BRZ ordered. EDMS EDMS 01:13 01:13 Urinalysis+U.LAB.BRZ ordered. EDMS EDMS
[2024-04-17] MEDS ORDERED: GABAPENTIN 300 MG CAP ONE (03:51)
[2024-04-17 04:30] VITALS: TEMP 98.3
[2024-04-17 04:39] VITALS: BP 112/62; O2SAT 97
== END 2024-04-17 04:00 | disposition home or self-care (01) ==
LOC: ER 00:42
DX: R30.0 Dysuria (principal); R10.2 Pelvic and perineal pain
CPT/HCPCS: 96361; 85025; 81001; 36415; 81025; 82947 ×2; 83690; 80053; 96374; 99284; J7030

== ENCOUNTER 2024-06-24 14:33 | Observation (INO) | payer OTHER ==
[2024-06-24 15:06] LABS: Absolute Basophils 0.1 K/uL (0-0.5); Absolute Eosinophils 0.1 K/uL (0-0.5); Absolute Lymphocytes (CBC) 1.7 K/uL (0.7-4.9); Absolute Monocytes 0.4 K/uL (0.1-1.3); Absolute Neutrophil 3.1 K/uL (1.8-8.0); Basophils % 2.3 % (0-1.3); Eosinophils % 2.1 % (0-4.4); Hematocrit 37.8 % (36.0-45.0); Hemoglobin 12.4 g/dL (12.0-15.0); MCH 28.7 pg (27.0-35.0); MCHC 32.8 g/dL (32.0-36.0); MCV 87.5 fL (80-100); MPV 7.9 fL (7.6-11.3); Monocytes % 6.7 % (3.3-12.3); Neutrophils % 56.9 % (41.7-73.7); Platelets 226 thou/uL (152-406); RBC Red Blood Cell Count 4.33 M/uL (3.86-4.86); Red Cell Distribution Width 14.2 % (12.1-15.2)
[2024-06-24 15:27] LABS: Specific Gravity 1.026 (1.005-1.030); Urine Bilirubin NEGATIVE (Negative); Urine Blood Negative (Negative); Urine Clarity Clear (Clear); Urine Color Colorless (Yellow); Urine Glucose 4+ (Over) (Negative); Urine Ketones NEGATIVE (Negative); Urine Microscopic Reflex YN NO UMIC; Urine Nitrite NEGATIVE (Negative); Urine Protein NEGATIVE (Negative); Urine Urobilinogen Normal (Normal)
[2024-06-24 15:30] LABS: Albumin 3.3 g/dL (3.4-5.0); Albumin/Globulin Ratio 0.8 (1.1-1.8); Anion Gap 17.8 mEq/L (5.0-15.0); Bilirubin Total 0.5 mg/dL (0.2-1.0); Protein, Total 7.3 g/dL (6.4-8.2)
[2024-06-24 15:33] LABS: Potassium 3.8 mEq/L (3.5-5.1)
[2024-06-24] MEDS ORDERED: INSULIN REGULAR (HUMAN) 100 UNIT/ML ONE (17:02)
[2024-06-24] MEDS ORDERED: NA CHLORIDE 0.9% 2,000 ML ONE (17:06)
--- NOTE | 2024-06-24 17:40 | P.HP ---
Certification for Inpatient Patient admitted to: Observation With expected LOS: <2 Midnights Patient will require the following post-hospital care: None Practitioner: I am a practitioner with admitting privileges, knowledge of patient current condition, hospital course, and medical plan of care. Services: Services provided to patient in accordance with Admission requirements found in Title 42 Section 412.3 of the Code of Federal Regulations Patient History Date of Service: 06/24/24 Reason for admission: Hyperglycemia History of Present Illness: 44-year-old female with history of diabetes mellitus type 2insulin-dependent, paroxysmal atrial fibrillation, hypertriglyceridemia, depression presents to the emergency department with chief complaint of feeling unwell and elevated glucose. She reports that she has been without her glucose test trips for the last few days and blood sugar has been reading high on her meter. She was evaluated in the emergency department her initial blood glucose on chemistry is 896, pseudohyponatremia present with a sodium of 123 chloride of 88 bicarb of 21 urine negative for ketones, does not appear to be in DKA at this time. He was given IV fluids, IV insulin in the ED and ED provider wishes to admit under observation. She takes 100 units of long-acting insulin at bedtime and 23 units of short acting twice daily at home which she has been compliant with. He was also recently started on Xarelto for paroxysmal A-fib by her admissions rn Allergies No Known Allergies Allergy (Verified 09/16/17 03:51) Home Medications: Metformin HCl 1,000 mg PO BID 09/16/17 Fenofibrate,Micronized [Fenofibrate] 1 tab PO DAILY 12/07/21 Fish Oil/Dha/Epa [Fish Oil 1,200 mg Fish Oil] 2 each PO BID #120 cap 11/28/22 Insulin Aspart [Novolog Flexpen] 10 unit SQ TID 11/28/22 Insulin Glargine,Hum.rec.anlog [Basaglar Kwikpen U-100] 100 unit SQ BEDTIME 11/28/22 Ferrous Gluconate 324 mg PO TID #90 tab 06/11/23 Atorvastatin Calcium [Lipitor] 80 mg PO BEDTIME #60 tab 02/22/24 Buspirone HCl [Buspar*] 5 mg PO BID tab 02/22/24 Promethazine Tab [Phenergan*] 25 mg PO Q6H PRN #24 tab 02/22/24 - Past Medical/Surgical History Diabetic: Yes -: DIABETIC TYPE II -: CHOLESTEROL -: DEPRESSION -: Paroxysmal A-fib -: hernia repair -: heart ablation -: broke foot -: tonsillectomy -: KATTY -: X3 Psychosocial/ Personal History: Lives at home with daughters - Family History Mother -: Diabetes - Social History Alcohol use: No CD- Drugs: No Caffeine use: Yes Place of Residence: Home Review of Systems 10-point ROS is otherwise unremarkable General: Malaise Physical Examination - Physical Exam General: Alert, In no apparent distress, Oriented x3 HEENT: Atraumatic, PERRLA, Mucous membr. moist/pink, EOMI, Sclerae nonicteric Neck: Supple, 2+ carotid pulse no bruit, No LAD, Without JVD or thyroid abnormality Respiratory: Clear to auscultation bilaterally, Normal air movement Cardiovascular: Regular rate/rhythm, Normal S1 S2 Gastrointestinal: Normal bowel sounds, No tenderness Musculoskeletal: No tenderness Integumentary: No rashes Neurological: Normal gait, Normal speech, Normal strength at 5/5 x4 extr, Normal tone, Normal affect Lymphatics: No axilla or inguinal lymphadenopathy - Studies Laboratory Data (last 24 hrs) 06/24/24 06/24/24 06/24/24 14:55 14:55 14:52 WBC 5.50 Hgb 12.4 Hct 37.8 Plt Count 226 Sodium 123 L Cancelled Potassium 3.8 Cancelled BUN 18 Cancelled Creatinine 1.55 H Cancelled Glucose 896 H* Cancelled Total Bilirubin 0.5 AST 28 ALT 43 Alkaline Phosphatase 62 Lipase 77 H Assessment and Plan - Plan Assessment: Diabetes mellitus type 2insulin-dependent with hyperglycemia/pseudohyponatremia Paroxysmal atrial fibrillation on chronic anticoagulation Recent TIA versus CVA Hypertension Hypertriglyceridemia Depression Plan: Diabetes mellitus type 2insulin-dependent with hyperglycemia/pseudohyponatremia Continue aggressive hydration/IV fluids overnight Patient takes 104 units of long-acting insulin at bedtime Ordered 100 units of long-acting insulin for tonight Aggressive sliding scale Repeat chemistry at 2030 Check every 4 hours Repeat BMP in the morning as well Paroxysmal atrial fibrillation on chronic anticoagulation Continue Xarelto, other home medications when verified Recent TIA versus CVA Continue Xarelto Hypertension Hypertriglyceridemia Depression Continue home medications when verified DVT PPX: Lovenox Code status: Full Discharge Plan: Home Plan to discharge in: 24 Hours - Advance Directives Does patient have a Living Will: No Does patient have a Durable POA for Healthcare: No - Code Status/Comfort Care Code Status Assessed: Yes (Full code) Critical Care: No Time Spent Managing Pts Care (In Minutes): 54
--- NOTE | 2024-06-24 17:46 | ER ---
Nurse's Notes [facility] Name: Valentina Franco Age: 44 yrs Sex: Female : 1980 Arrival Date: 06/24/2024 Time: 14:33 Bed 19 Private MD: Diagnosis: Type 2 diabetes mellitus with hyperglycemia;Non-ketotic hyperglycinemia Presentation: 06/24 14:49 Chief complaint: Patient states: Blurred vision, feels thirsty, and elevated BP started ll1 30 min [employer]. (168/110 at home). Coronavirus screen: Client denies travel out of the [place] in the last 14 days. At this time, the client does not indicate any symptoms associated with coronavirus-19. Ebola Screen: Patient denies travel to an Ebola-affected area in the 21 days before illness onset. Initial Sepsis Screen: Does the patient meet any 2 criteria? No. Patient's initial sepsis screen is negative. Does the patient have a suspected source of infection? No. Patient's initial sepsis screen is negative. Risk Assessment: Do you want to hurt yourself or someone else? Patient reports no desire to harm self or others. Onset of symptoms was June 24, 2024. 14:49 Method Of Arrival: Ambulatory ll1 14:49 Acuity: CYNTHIA 3 ll1 Triage Assessment: 14:50 General: Appears uncomfortable, Behavior is cooperative, appropriate for age, anxious. ll1 Pain: Denies pain. EENT: Reports feels very thirsty. Neuro: Reports blurred vision. Cardiovascular: Reports high BP. Historical: - Allergies: 14:48 No Known Allergies; ll1 - Home Meds: 16:41 Metformin 2000mg per day Oral for type 2 diabetes mellitus [Active]; Trulicity bo1 subcutaneous for type 2 diabetes mellitus [Active]; glyburide Oral for type 2 diabetes mellitus [Active]; Novolog U-100 Insulin aspart 100 unit/mL subcutaneous solution 100 units daily for type 2 diabetes mellitus [Active]; fenofibrate oral for hyperlipidemia [Active]; Basaglar KwikPen U-100 Insulin subcutaneous for type 2 diabetes mellitus [Active]; - PMHx: 14:48 Anxiety; Depression; diabetes mellitus; High Cholesterol; Hypertensive disorder; Kidney ll1 stone; Pancreatitis; Sepsis; UTI; yeast infection; CVA (yeast infection); - PSHx: 14:48 BBL; section; Cholecystectomy; foot surgery; Heart ablation; Ligation of ll1 fallopian tube; LIPOSUCTION TO CHIN; Tonsillectomy; - Immunization history:: Adult Immunizations up to date. - Infectious Disease History:: Denies. - Social history:: Smoking status: Patient denies any tobacco usage or history of. Screenin:28 [facility] ED Fall Risk Assessment (Adult) History of falling in the last 3 months, db including since admission No falls in past 3 months (0 pts) Confusion or Disorientation No (0 pts) Intoxicated or Sedated No (0 pts) Impaired Gait No (0 pts) Mobility Assist Device Used No (0 pt) Altered Elimination No (0 pt) Score/Fall Risk Level 0 - 2 = Low Risk Oriented to surroundings, Maintained a safe environment. Abuse screen: Denies threats or abuse. Denies injuries from another. Nutritional screening: No deficits noted. Tuberculosis screening: No symptoms or risk factors identified. Assessment: 15:26 Reassessment: Patient appears in no apparent distress at this time. Patient and/or db family updated on plan of care and expected duration. Pain level reassessed. Patient is alert, oriented x 3, equal unlabored respirations, skin warm/dry/pink. General: Appears in no apparent distress. comfortable, Behavior is calm, cooperative. Neuro: Level of Consciousness is awake, alert, obeys commands, Oriented to person, place, time, situation. Respiratory: Airway is patent Respiratory effort is even, unlabored, Respiratory pattern is regular, symmetrical. 16:00 Reassessment: Patient appears in no apparent distress at this time. Patient and/or db family updated on plan of care and expected duration. Pain level reassessed. Patient is alert, oriented x 3, equal unlabored respirations, skin warm/dry/pink. 17:00 Reassessment: Patient appears in no apparent distress at this time. Patient and/or db family updated on plan of care and expected duration. Pain level reassessed. Patient is alert, oriented x 3, equal unlabored respirations, skin warm/dry/pink. 17:15 Reassessment: PATIENT REQUEST TO LEAVE PERSONAL CLOTHES ON . db 18:17 Reassessment: Patient appears in no apparent distress at this time. Patient and/or db family updated on plan of care and expected duration. Pain level reassessed. Patient is alert, oriented x 3, equal unlabored respirations, skin warm/dry/pink. PT IS TALKING ON THE PHONE. General: Appears in no apparent distress. comfortable, Behavior is calm, cooperative. 18:45 Reassessment: Patient appears in no apparent distress at this time. READY FOR ADMISSION.db 18:50 Reassessment: PT AMBULATORY TO RESTROOM. db Vital Signs: 14:49 BP 152 / 89; Pulse 113; Resp 18; Temp 98.5; Pulse Ox 98% on R/A; Weight 95.71 kg; ll1 Height 5 ft. 4 in. ; Pain 0/10; 15:05 BP 142 / 85; Pulse 104; Resp 16; Pulse Ox 98% on R/A; db 15:30 BP 134 / 80; Pulse 108; Resp 20; Pulse Ox 96% on R/A; db 17:05 BP 144 / 101; Pulse 106; Resp 20; Pulse Ox 96% on R/A; db 18:00 BP 129 / 90; Pulse 99; Resp 16; Temp 98.4; Pulse Ox 98% ; db 19:19 BP 117 / 60; Pulse 88; Resp 14; Pulse Ox 97% ; br2 14:49 Body Mass Index 36.22 (95.71 kg, 162.56 cm) ll1 14:49 Pain Scale: Adult ll1 ED Course: 14:35 Patient arrived in ED. im 14:41 Arm band placed on Patient placed in an exam room, on a stretcher. ll1 14:49 Latoya Mathews, RN is Primary Nurse. db 14:50 Triage completed. ll1 15:00 Initial lab(s) drawn, by me, sent to lab. Inserted saline lock: 20 gauge in left tm3 antecubital area, using aseptic technique. 15:26 EKG done, by ED staff. db 15:27 Elliot Pink MD is Attending Physician. bo1 17:44 Antony Diaz is Hospitalizing Provider. bo1 18:17 Patient has correct armband on for positive identification. Bed in low position. Call db light in reach. Side rails up X 1. Provided Education on: ADMISSION. Client placed on continuous cardiac and pulse oximetry monitoring. NIBP monitoring applied. property assessment monitor on. Pulse ox on. NIBP on. Warm blanket given. Pillow given. 18:22 No provider procedures requiring assistance completed. db 18:45 Patient admitted, IV remains in place. db 19:16 Argentina Negro, RN is Primary Nurse. br2 Administered Medications: 17:08 Drug: Insulin Regular Human IVP 10 units IVP once {Co-Signature: [email or web address] (Anil Slater RN).} Route: IVP; Site: right antecubital; 18:27 Follow up: Response: No adverse reaction db 17:15 Drug: NS 0.9% IV 1000 ml IV at 1000 ml once; to be given as a bolus over 60 minutes db Route: IV; Rate: 1000 ml; Site: left antecubital; 19:20 Follow up: IV Status: Completed infusion; IV Intake: 1000ml br2 17:15 Drug: NS 0.9% IV 1000 ml IV at 1000 ml once; to be given as a bolus over 60 minutes db Route: IV; Rate: 1000 ml; Site: left antecubital; 19:20 Follow up: IV Status: Completed infusion; IV Intake: 1000ml br2 Medication: 18:17 VIS not applicable for this client. db Point of Care Testing: Blood Glucose: 14:54 Blood Glucose: High (>450 mg/dL); db Ranges: Intake: 19:20 IV: 1000ml; Total: 1000ml. br2 19:20 IV: 1000ml; Total: 2000ml. br2 Outcome: 17:45 Decision to Hospitalize by Provider. bo1 18:45 Admitted to Tele room 407 , Report called to FAXED AND CALLED TO [facility]BER[facility] db 18:45 Condition: stable 18:45 Instructed on the need for admit, 19:51 Patient left the ED. br2 Signatures: Ricki Guerrero tm3 Topher Astorga, RN RN ll1 Latoya Mathews, RN RN Char Benavidez Benjamin, MD MD bo1 Argentina Negro, PETE RN br2 Anil Slater RN jb4 Corrections: (The following items were deleted from the chart) 14:48 14:48 PSHx: section; ll1 ll1
--- NOTE | 2024-06-24 17:46 | EDPHYS ---
Physician Documentation [facility] Name: Valentina Franco Age: 44 yrs Sex: Female : 1980 Arrival Date: 06/24/2024 Time: 14:33 Bed 19 Private MD: ED Physician Elliot Pink HPI: 06/24 16:36 This 44 yrs old Female presents to ER via Ambulatory with complaints of High bo1 Blood Pressure, Blurred Vision. 16:36 Onset: The symptoms/episode began/occurred gradually, today. Due to high blood sugar or bo1 her triglycerides. Hx of type 2 DM since age 15. Historical: - Allergies: 14:48 No Known Allergies; ll1 - Home Meds: 16:41 Metformin 2000mg per day Oral for type 2 diabetes mellitus [Active]; Trulicity bo1 subcutaneous for type 2 diabetes mellitus [Active]; glyburide Oral for type 2 diabetes mellitus [Active]; Novolog U-100 Insulin aspart 100 unit/mL subcutaneous solution 100 units daily for type 2 diabetes mellitus [Active]; fenofibrate oral for hyperlipidemia [Active]; Basaglar KwikPen U-100 Insulin subcutaneous for type 2 diabetes mellitus [Active]; - PMHx: 14:48 Anxiety; Depression; diabetes mellitus; High Cholesterol; Hypertensive disorder; Kidney ll1 stone; Pancreatitis; Sepsis; UTI; yeast infection; CVA (yeast infection); - PSHx: 14:48 BBL; section; Cholecystectomy; foot surgery; Heart ablation; Ligation of ll1 fallopian tube; LIPOSUCTION TO CHIN; Tonsillectomy; - Immunization history:: Adult Immunizations up to date. - Infectious Disease History:: Denies. - Social history:: Smoking status: Patient denies any tobacco usage or history of. ROS: 16:37 Constitutional: Negative for fever, chills, and weight loss bo1 16:37 Eyes: Positive for visual disturbance, 16:37 Cardiovascular: Positive for palpitations, fast HR, 16:37 Respiratory: Negative for cough, shortness of breath, 16:37 Abdomen/GI: Negative for abdominal pain, 16:37 MS/extremity: Negative for acute changes, pain, swelling, tenderness, 16:37 Skin: Negative for rash, 16:37 Neuro: Positive for dizziness, Negative for altered mental status, Exam: 17:48 Constitutional: This is a well developed, well nourished patient who is awake, alert, bo1 and in no acute distress. 17:48 Constitutional: The patient appears alert, awake, comfortable, non-toxic, 17:48 Head/face: Exam is negative for acute changes, 17:48 Eyes: Exam is negative for acute changes, 17:48 Neck: Exam negative for acute changes, 17:48 Cardiovascular: Rate: tachycardic, Rhythm: regular, Pulses: no pulse deficits are appreciated, 17:48 ECG was reviewed by the Attending Physician. 17:48 Respiratory: Exam negative for acute changes, the patient does not display signs of respiratory distress, Respirations: normal, Breath sounds: are clear throughout, 17:48 Abdomen/GI: Inspection: abdomen appears normal, obese Bowel sounds: normal, Palpation: soft, nontender, rebound tenderness, is not appreciated, 17:48 Musculoskeletal/extremity: Extremities: all appear grossly normal, with no appreciated pain with palpation, 17:48 Skin: Turgor: is good, Warm and dry. 17:48 Neuro: Orientation: is normal, appropriate for stated age, Mentation: is normal, appropriate for stated age, Vital Signs: 14:49 BP 152 / 89; Pulse 113; Resp 18; Temp 98.5; Pulse Ox 98% on R/A; Weight 95.71 kg; ll1 Height 5 ft. 4 in. ; Pain 0/10; 15:05 BP 142 / 85; Pulse 104; Resp 16; Pulse Ox 98% on R/A; db 15:30 BP 134 / 80; Pulse 108; Resp 20; Pulse Ox 96% on R/A; db 17:05 BP 144 / 101; Pulse 106; Resp 20; Pulse Ox 96% on R/A; db 18:00 BP 129 / 90; Pulse 99; Resp 16; Temp 98.4; Pulse Ox 98% ; db 19:19 BP 117 / 60; Pulse 88; Resp 14; Pulse Ox 97% ; br2 14:49 Body Mass Index 36.22 (95.71 kg, 162.56 cm) ll1 14:49 Pain Scale: Adult ll1 MDM: 15:27 Medical Screening Exam initiated bo1 17:46 Differential diagnosis: Dehydration metabolic syndrome hyperglycemia Type 2 DM. Data bo1 reviewed: vital signs, lab test result(s), EKG. Consideration of Admission/Observation Patient was admitted/placed on observation. ED course: Pt has stated she wishes to be admitted for care and control of the high glucose level. 06/24 14:52 Order name: CBC with Diff; Complete Time: 15:41 db 06/24 14:52 Order name: Urinalysis w/ reflexes; Complete Time: 15:41 db 06/24 14:56 Order name: CMP; Complete Time: 15:41 db 06/24 14:56 Order name: Lipase; Complete Time: 15:41 db 06/24 15:06 Order name: Glucose, Ancillary Testing; Complete Time: 15:41 EDMS 06/24 18:38 Order name: Glucose, Ancillary Testing; Complete Time: 18:40 EDMS 06/24 14:52 Order name: EKG; Complete Time: 14:53 ll1 06/24 14:52 Order name: EKG - Nurse/Tech; Complete Time: 15:26 ll1 06/24 14:56 Order name: IV Saline Lock; Complete Time: 15:26 db 06/24 14:56 Order name: Labs collected and sent; Complete Time: 15:26 db EC:48 Rate is 103 beats/min. Rhythm is regular. QRS [place] is Normal. MD interval is normal. bo1 QRS interval is normal. QT interval is normal. No Q waves. T waves are Normal. No ST changes noted. Clinical impression: Sinus tachycardia and Bifascicular block RBBB. Interpreted by me. Reviewed by me. Administered Medications: 17:08 Drug: Insulin Regular Human IVP 10 units IVP once {Co-Signature: [email or web address] (Anil Slater RN).} Route: IVP; Site: right antecubital; 18:27 Follow up: Response: No adverse reaction db 17:15 Drug: NS 0.9% IV 1000 ml IV at 1000 ml once; to be given as a bolus over 60 minutes db Route: IV; Rate: 1000 ml; Site: left antecubital; 19:20 Follow up: IV Status: Completed infusion; IV Intake: 1000ml br2 17:15 Drug: NS 0.9% IV 1000 ml IV at 1000 ml once; to be given as a bolus over 60 minutes db Route: IV; Rate: 1000 ml; Site: left antecubital; 19:20 Follow up: IV Status: Completed infusion; IV Intake: 1000ml br2 Point of Care Testing: Blood Glucose: 14:54 Blood Glucose: High (>450 mg/dL); db Ranges: Critical Glucose Levels:Adult <50 mg/dl or >400 mg/dl <40 mg/dl or >180 mg/dl Disposition Summary: 06/24/24 17:45 Hospitalization Ordered Notes: Hospitalization Status: Observation bo1 Provider: Antony Diaz Location: Telemetry/MedSurg (observation) bo1 Condition: Fair bo1 Problem: chronic bo1 Symptoms: are unchanged bo1 Bed/Room Type: Standard bo1 Room Assignment: 407(06/24/24 18:05) eb Diagnosis - Type 2 diabetes mellitus with hyperglycemia bo1 - Non-ketotic hyperglycinemia bo1 Forms: - Medication Reconciliation Form bo1 - SBAR form bo1 - Leadership Thank You Letter bo1 Signatures: Dispatcher [employer] EDMS Milton Phillips FNP-C DISPENSING LEAD-Cla1 Paula Medellin Lynsay RN RN ll1 Latoya Mathews RN RN db Elliot Pink MD MD bo1 Argentina Negro RN br2 Anil Slater RN jb4 Corrections: (The following items were deleted from the chart) 14:48 14:48 PSHx: section; ll1 ll1 15:06 14:52 BASIC METABOLIC PANEL+C.LAB.BRZ ordered. EDFL EDMS 18:05 17:45 bo1 eb
[2024-06-24] MEDS ORDERED: ONDANSETRON 4 MG/2 ML VIAL IV PRN (20:14)
[2024-06-24 20:17] VITALS: BMI 36.6
[2024-06-24] MEDS: INSULIN REGULAR (HUMAN) 100 UNIT/ML SQ SCH (20:38)
[2024-06-24] MEDS: NA CHLORIDE 0.9% 1,000 ML IV SCH (20:46)
[2024-06-24 20:54] VITALS: O2SAT 97
[2024-06-24] MEDS ORDERED: HYDRALAZINE HCL 20 MG/ML VIAL IV PRN (20:54)
[2024-06-24] MEDS: INSULIN GLARGINE 100 UNIT/ML SQ SCH (20:55)
[2024-06-24] MEDS: TRAZODONE 150 MG TAB PO SCH (22:59)
[2024-06-24] MEDS: BUSPIRONE HCL 5 MG TABLET PO SCH (23:00)
--- NOTE | 2024-06-24 23:50 | P.PN ---
Date of Service: 06/24/24 Lab work from 8 PM still pending, repeat lab order placed. Multiple attempts made to reach nursing staff to obtain blood work prove abortive as she refused to return my calls.
[2024-06-25 01:26] LABS: Anion Gap 10.2 mEq/L (5.0-15.0)
[2024-06-25 01:28] LABS: Potassium 3.2 mEq/L (3.5-5.1)
[2024-06-25] MEDS: POTASSIUM 25 MEQ EFFERV TAB PO ONE (03:22)
[2024-06-25 06:38] LABS: Anion Gap 11.4 mEq/L (5.0-15.0); Magnesium 1.6 mg/dL (1.6-2.4); Potassium 3.4 mEq/L (3.5-5.1)
[2024-06-25 07:14] LABS: Absolute Basophils 0.1 K/uL (0-0.5); Absolute Eosinophils 0.2 K/uL (0-0.5); Absolute Monocytes 0.4 K/uL (0.1-1.3); Absolute Neutrophil 1.7 K/uL (1.8-8.0); Basophils % 1.3 % (0-1.3); Eosinophils % 3.8 % (0-4.4); Hematocrit 33.7 % (36.0-45.0); Hemoglobin 10.8 g/dL (12.0-15.0); Lymphocytes % 46.8 % (15.3-44.8); MCH 27.4 pg (27.0-35.0); MCHC 32.1 g/dL (32.0-36.0); MCV 85.3 fL (80-100); MPV 7.9 fL (7.6-11.3); Monocytes % 8.5 % (3.3-12.3); Neutrophils % 39.6 % (41.7-73.7); Nucleated Red Blood Cells % 0.7 % (0-0); Platelets 193 thou/uL (152-406); RBC Red Blood Cell Count 3.95 M/uL (3.86-4.86)
--- NOTE | 2024-06-25 08:12 | P.DS ---
Admission Date: 06/24/24 Discharge Date: 06/25/24 Disposition: ROUTINE DISCHARGE Discharge Condition: GOOD Reason for Admission: Hyperglycemia Brief History of Present Illness: 44-year-old female with history of diabetes mellitus type 2insulin-dependent, paroxysmal atrial fibrillation, hypertriglyceridemia, depression presents to the emergency department with chief complaint of feeling unwell and elevated glucose. She reports that she has been without her glucose test trips for the last few days and blood sugar has been reading high on her meter. She was evaluated in the emergency department her initial blood glucose on chemistry is 896, pseudohyponatremia present with a sodium of 123 chloride of 88 bicarb of 21 urine negative for ketones, does not appear to be in DKA at this time. He was given IV fluids, IV insulin in the ED and ED provider wishes to admit under observation. She takes 100 units of long-acting insulin at bedtime and 23 units of short acting twice daily at home which she has been compliant with. He was also recently started on Xarelto for paroxysmal A-fib by her consulting application engineer Hospital Course: Assessment: Diabetes mellitus type 2insulin-dependent with hyperglycemia/pseudohyponatremia Paroxysmal atrial fibrillation on chronic anticoagulation Recent TIA versus CVA Hypertension Hypertriglyceridemia Depression Patient was admitted to hospital for hyperglycemia, initial blood sugar was 896. She was not in DKA, she did well overnight blood sugars have improved. Blood sugar this morning 323, she reports she runs in 300s typically, A1c was checked and it was 12.9. She reports that she had run out of her glucose test trips at home, she was instructed to pick some up on the way home. She states she has all of her other home medications available to her at home. Continue your home medications including her long-acting and sliding scale insulin as previously prescribed. Make sure you are closely monitoring her glucose at home Follow-up closely with your PCP Dr. Cook Vital Signs/Physical Exam: Temp Pulse Resp BP Pulse Ox 98.2 F 71 18 121/62 91 06/25/24 04:00 06/25/24 04:00 06/25/24 04:00 06/25/24 04:00 06/25/24 04:00 General: Alert, In no apparent distress, Oriented x3 HEENT: Atraumatic, PERRLA, EOMI Neck: Supple, JVD not distended Respiratory: Clear to auscultation bilaterally, Normal air movement Cardiovascular: Regular rate/rhythm, Normal S1 S2 Gastrointestinal: Non-distended Musculoskeletal: No contractures Integumentary: No cyanosis Neurological: Normal speech, Normal affect Laboratory Data at Discharge: WBC 4.20 thou/uL (4.3-10.9) L 06/25/24 05:28 Hgb 10.8 g/dL (12.0-15.0) L D 06/25/24 05:28 Hct 33.7 % (36.0-45.0) L 06/25/24 05:28 Plt Count 193 thou/uL (152-406) 06/25/24 05:28 Sodium 137 mEq/L (136-145) 06/25/24 05:28 Potassium 3.4 mEq/L (3.5-5.1) L 06/25/24 05:28 BUN 15 mg/dL (7-18) 06/25/24 05:28 Creatinine 0.69 mg/dL (0.55-1.02) 06/25/24 05:28 Glucose 344 mg/dL (74-106) H 06/25/24 05:28 Magnesium 1.6 mg/dL (1.6-2.4) 06/25/24 05:28 Total Bilirubin 0.5 mg/dL (0.2-1.0) 06/24/24 14:55 AST 28 U/L (15-37) 06/24/24 14:55 ALT 43 U/L (13-56) 06/24/24 14:55 Alkaline Phosphatase 62 U/L (45-117) 06/24/24 14:55 Lipase 77 U/L (13-75) H 06/24/24 14:55 Home Medications: Metformin HCl 1,000 mg PO BID 09/16/17 Fenofibrate,Micronized [Fenofibrate] 1 tab PO DAILY 12/07/21 Insulin Aspart [Novolog Flexpen] 26 unit SQ TID 11/28/22 Buspirone HCl [Buspar*] 5 mg PO BID tab 02/22/24 Promethazine Tab [Phenergan*] 25 mg PO Q6H PRN #24 tab 02/22/24 Fish Oil/Dha/Epa [Fish Oil 1,200 mg Fish Oil] 2 each PO TID 06/24/24 Fluoxetine HCl [Prozac] 40 tab PO DAILY 06/24/24 Trazodone [Desyrel*] 150 mg PO BEDTIME 06/24/24 Physician Discharge Instructions: Patient was admitted to hospital for hyperglycemia, initial blood sugar was 896. She was not in DKA, she did well overnight blood sugars have improved. Blood sugar this morning 323, she reports she runs in 300s typically, A1c was checked and it was 12.9. She reports that she had run out of her glucose test trips at home, she was instructed to pick some up on the way home. She states she has all of her other home medications available to her at home. Continue your home medications including her long-acting and sliding scale insul in as previously prescribed. Make sure you are closely monitoring her glucose at home Follow-up closely with your PCP Dr. Cook Diet: ADA Activity: Ad kimberly Followup: Yasmany Cook DO [Primary Care Provider] - Time spent managing pt's care (in minutes): 33
[2024-06-25] MEDS: METFORMIN HCL 500 MG TAB PO SCH (08:59)
[2024-06-25] MEDS ORDERED: ENOXAPARIN 40 MG/0.4 ML SQ SCH (09:00)
[2024-06-25 10:18] VITALS: BP 107/64; TEMP 98.6
[2024-06-25] MEDS ORDERED: RIVAROXABAN 20 MG TABLET PO SCH (17:00)
--- NOTE | 2024-06-26 12:03 | EKG ---
Test Date: 2024-06-24 Test Time: 15:08:04 Continuous Mining Operator: RL MEASUREMENT RESULTS: Intervals: Rate: 103 W[place]: 166 QRSD: 144 QT: 404 QTc: 529 [place]: P: 74 W[place]: 166 QRS: 111 T: 51 INTERPRETIVE STATEMENTS: Sinus tachycardia Right bundle branch block Left posterior fascicular block Bifascicular block Abnormal ECG Compared to ECG 02/15/2024 16:05:08 Sinus rhythm no longer present Fusion complex(es) no longer present Bifascicular block still present Electronically Signed On 06-26-24 12:01:50 PRODUCT APPLICATIONS ENGINEER by David Navarro
== END 2024-06-25 10:45 | disposition home or self-care (01) ==
LOC: ER 14:33 → ERHOLD 17:33 → 4TH 18:41
PROVIDERS: ADMIT Internal Medicine; ATTEND Internal Medicine
DX: E11.65 Type 2 diabetes mellitus with hyperglycemia (principal); I48.11 Longstanding persistent atrial fibrillation; I10 Essential (primary) hypertension; E78.1 Pure hyperglyceridemia; F32.A Depression, unspecified; Z79.01 Long term (current) use of anticoagulants; Z79.4 Long term (current) use of insulin
CPT/HCPCS: 96361; 85025 ×2; 80048 ×2; 36415; 83735; 82947 ×7; 81003; 83036; 83690; 80053; 96374; 99285; J7030 ×3; 93005; G0378

== ENCOUNTER 2024-07-01 17:20 | Emergency (ER) | payer OTHER ==
[2024-07-01] MEDS ORDERED: HYDROCODONE/APAP 10/325 TAB ONE (18:00)
[2024-07-01] MEDS ORDERED: LIDOCAINE 2% W/EPI 1:200,000 MPF 20 ML VIAL IM ONE (18:03)
[2024-07-01] MEDS ORDERED: LIDOCAINE HCL JELLY 2% 6 ML SYRINGE TOP ONE (18:04)
--- NOTE | 2024-07-01 18:50 | EDPHYS ---
Physician Documentation [facility] Name: Valentina Franco Age: 44 yrs Sex: Female : 1980 Arrival Date: 07/01/2024 Time: 17:20 Bed 17 Private MD: ED Physician Johan Giron HPI: 07/01 17:30 This 44 yrs old Female presents to ER via Ambulatory with complaints of Boil, cp Fever. 17:30 The patient presents with an abscess of the right buttock, the patient presents with a cp swollen area of the right buttock. 17:30 Description: erythematous, swollen. Onset: The symptoms/episode began/occurred 4 day(s) cp ago. Associated signs and symptoms: Pertinent negatives: discharge, drainage, fever. Severity of symptoms: in the emergency department the symptoms are unchanged, despite home interventions. 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 - Infectious Disease History:: Denies. - Social history:: Smoking status: Patient denies any tobacco usage or history of. ROS: 17:35 Skin: Positive for abscess, of the right buttock, cp 17:35 Constitutional: Negative for body aches, chills, fever, poor PO intake, cp 17:35 Respiratory: Negative for cough, shortness of breath, wheezing, 17:35 Abdomen/GI: Negative for abdominal pain, vomiting, diarrhea, constipation, 17:35 All other systems are negative, Exam: 17:38 Constitutional: The patient appears in no acute distress, alert, awake, non-toxic, well cp developed, well nourished, uncomfortable, 17:38 Head/Face: Normocephalic, atraumatic. cp 17:38 Chest/axilla: Inspection: normal, 17:38 Cardiovascular: Rate: normal, 17:38 Respiratory: the patient does not display signs of respiratory distress, Respirations: normal, no use of accessory muscles, no retractions, 17:38 Abdomen/GI: Inspection: abdomen appears normal, Palpation: abdomen is soft and non-tender, in all quadrants, 17:38 Skin: abscess, that is small, of the right buttock, with induration, with surrounding cellulitis, that is mild, Vital Signs: 17:33 BP 138 / 87; Pulse 93; Resp 17; Temp 98.3(O); Pulse Ox 98% on R/A; Weight 95.71 kg; tm6 Height 5 ft. 4 in. ; Pain 8/10; 17:33 Body Mass Index 36.22 (95.71 kg, 162.56 cm) 6 17:33 Pain Scale: Adult [facility] Procedures: 18:50 I \T\ D: Incision and drainage was performed for an abscess of the right buttock Prepped with Betadine, Anesthetized with ml's 2% Lidocaine with epinephrine. 5 ml's 2% Lidocaine with epinephrine. Incised with #11 blade. Drained small amount purulent fluid. bloody fluid. Packed with iodoform gauze, Dressing: sterile 4x4 gauze, the patient tolerated the procedure well. MDM: 17:24 Medical Screening Exam initiated cp 18:00 Differential diagnosis: abscess, cellulitis, insect bite, sepsis. 18:49 Data reviewed: vital signs, nurses notes, and as a result, I will discharge patient. 18:49 I considered the following discharge prescriptions or medication management in the emergency department Medications were administered in the Emergency Department. See MAR. Care significantly affected by the following chronic conditions: Diabetes, Hypertension. Counseling: I had a detailed discussion with the patient and/or guardian regarding the historical points, exam findings, and any diagnostic results supporting the discharge/admit diagnosis, the need for outpatient follow up, a family practitioner, to return to the emergency department if symptoms worsen or persist or if there are any questions or concerns that arise at home. Response to treatment: the patient's symptoms have mildly improved after treatment, and as a result, I will discharge patient. 07/01 18:45 Order name: Glucose, Ancillary Testing; Complete Time: 18:48 EDMS 07/01 18:48 Interpretation: Reviewed. cp 07/01 18:05 Order name: Accucheck Blood Glucose; Complete Time: 18:49 cp 07/01 18:05 Order name: I\T\D Setup; Complete Time: 18:05 cp 07/01 18:44 Order name: Wound dressing; Complete Time: 18:49 cp Administered Medications: 18:11 Drug: Lidocaine Mucous Membrane Gel 2 % 1 ea 15 ml Mucous Membrane once Volume: 15 ml; ap3 Route: Mucous Membrane; 18:11 Drug: HYDROcodone-acetaminophen PO 10 mg-325 mg 1 tabs PO once Route: PO; ap3 19:01 Follow up: Response: No adverse reaction; Pain is decreased ap3 19:01 Drug: Clindamycin PO 600 mg PO once Route: PO; ap3 19:02 Follow up: Response: Medication administered at discharge. ap3 19:02 Drug: Lidocaine Infiltration (2 %) 10 ml 5 ml Infiltration once; to bedside with ap3 epinephrine {Note: by johan jacobs.} Volume: 5 ml; Route: Infiltration; Disposition: 07/02 15:50 Chart complete. cp Disposition Summary: 07/01/24 18:49 Discharge Ordered Notes: Location: Home cp Problem: new cp Symptoms: have improved cp Condition: Stable cp Diagnosis - Cutaneous abscess of buttock - right cp Followup: cp - With: Private Physician - When: 48 Hours - Reason: Wound Recheck Discharge Instructions: - Discharge Summary Sheet cp - Skin Abscess cp - Incision and Drainage cp - Incision and Drainage, Care After cp Forms: - Medication Reconciliation Form cp - Antibiotic Education cp - Prescription Opioid Use cp - Patient Portal Instructions cp - Leadership Thank You Letter cp Prescriptions: - Clindamycin HCl 300 mg Oral Capsule - take 1 capsule ORAL route every 6 hours for 10 days; 40 capsule; Refills: 0, cp Product Selection Permitted Addendum: 07/05/2024 12:43 Co-signature as Attending Physician, Johan Giron MD I agree with the assessment and c lai plan of care. Signatures: Johan Giron MD MD cha Page, Corey, PA PA cp Ashley Pace RN RN ap3 Fatoumata Gabriel RN RN tm6
--- NOTE | 2024-07-01 18:50 | ER ---
Nurse's Notes [facility] Name: Valentina Franco Age: 44 yrs Sex: Female : 1980 Arrival Date: 07/01/2024 Time: 17:20 Bed 17 Private MD: Diagnosis: Cutaneous abscess of buttock-right Presentation: 07/01 17:33 Chief complaint: Patient states: I think I have a boil on my bottom. Started 4 days tm6 ago. It hurts to sit. On blood thinner. Coronavirus screen: Client denies travel out of the [place] in the last 14 days. Ebola Screen: Patient negative for fever greater than or equal to 101.5 degrees Fahrenheit, and additional compatible Ebola Virus Disease symptoms Patient denies exposure to infectious person. Patient denies travel to an Ebola-affected area in the 21 days before illness onset. No symptoms or risks identified at this time. Initial Sepsis Screen: Does the patient meet any 2 criteria? No. Patient's initial sepsis screen is negative. Does the patient have a suspected source of infection? No. Patient's initial sepsis screen is negative. Risk Assessment: Do you want to hurt yourself or someone else? Patient reports no desire to harm self or others. Onset of symptoms was June 27, 2024. 17:33 Method Of Arrival: Ambulatory tm6 17:33 Acuity: CYNTHIA 4 tm6 Triage Assessment: 17:34 General: Appears in no apparent distress. Behavior is calm, cooperative. Pain: tm6 Complains of pain in buttocks Pain currently is 8 out of 10 on a pain scale. EENT: No deficits noted. No signs and/or symptoms were reported regarding the EENT system. Neuro: Level of Consciousness is awake, alert, obeys commands, Oriented to person, place, time, situation. Cardiovascular: Patient's skin is warm and dry. Respiratory: Airway is patent Respiratory effort is even, unlabored, Respiratory pattern is regular, symmetrical. GI: No signs and/or symptoms were reported involving the gastrointestinal system. Abdomen is round non-distended. : No signs and/or symptoms were reported regarding the genitourinary system. Derm: Abscess located on buttocks is quarter sized. Musculoskeletal: No signs and/or symptoms reported regarding the musculoskeletal system. 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 - Infectious Disease History:: Denies. - Social history:: Smoking status: Patient denies any tobacco usage or history of. Screenin:03 [facility] ED Fall Risk Assessment (Adult) History of falling in the last 3 months, ap3 including since admission No falls in past 3 months (0 pts) Confusion or Disorientation No (0 pts) Intoxicated or Sedated No (0 pts) Impaired Gait No (0 pts) Mobility Assist Device Used No (0 pt) Altered Elimination No (0 pt) Score/Fall Risk Level 0 - 2 = Low Risk Oriented to surroundings, Maintained a safe environment, Educated pt \T\ family on fall prevention, incl call for assistance when getting out of bed, Assessed \T\ reinforced patient's understanding of fall precautions, Hourly rounding (assess needs \T\ fall precautionary measures) done, Used ambulatory aids as needed (educated on \T\ assisted with), Used gait belt as appropriate. Abuse screen: Denies threats or abuse. Nutritional screening: No deficits noted. Tuberculosis screening: No symptoms or risk factors identified. Vital Signs: 17:33 BP 138 / 87; Pulse 93; Resp 17; Temp 98.3(O); Pulse Ox 98% on R/A; Weight 95.71 kg; tm6 Height 5 ft. 4 in. ; Pain 8/10; 17:33 Body Mass Index 36.22 (95.71 kg, 162.56 cm) tm6 17:33 Pain Scale: Adult tm6 ED Course: 17:22 Patient arrived in ED. im 17:24 Johan Randall PA is PHCP. cp 17:24 Johan Giron MD is Attending Physician. cp 17:27 Franky Smith, PETE is Primary Nurse. bp 17:34 Triage completed. tm6 17:34 Arm band placed on right wrist. tm6 19:03 No provider procedures requiring assistance completed. Patient did not have IV access ap3 during this emergency room visit. intact, bleeding controlled, No redness/swelling at site. Pressure dressing applied. 19:04 Patient has correct armband on for positive identification. Provided Education on: ap3 wound care. Administered Medications: 18:11 Drug: Lidocaine Mucous Membrane Gel 2 % 1 ea 15 ml Mucous Membrane once Volume: 15 ml; ap3 Route: Mucous Membrane; 18:11 Drug: HYDROcodone-acetaminophen PO 10 mg-325 mg 1 tabs PO once Route: PO; ap3 19:01 Follow up: Response: No adverse reaction; Pain is decreased ap3 19:01 Drug: Clindamycin PO 600 mg PO once Route: PO; ap3 19:02 Follow up: Response: Medication administered at discharge. ap3 19:02 Drug: Lidocaine Infiltration (2 %) 10 ml 5 ml Infiltration once; to bedside with ap3 epinephrine {Note: by johan randall.} Volume: 5 ml; Route: Infiltration; Medication: 19:05 VIS not applicable for this client. ap3 Outcome: 18:49 Discharge ordered by MD. cp 19:03 Discharged to home ambulatory, ap3 19:03 Condition: good 19:03 Discharge instructions given to patient, family, Instructed on discharge instructions, follow up and referral plans. medication usage, Demonstrated understanding of instructions, follow-up care, medications, Prescriptions given X 1, 19:05 Patient left the ED. ap3 Signatures: Johan Randall PA PA cp Peltier, Brian RN RN Ashley Medrano RN RN ap3 Char Easley Tawney, RN RN tm6 Corrections: (The following items were deleted from the chart) 17:48 17:33 Chief complaint: Patient states: I think I have a boil on my bottom. Started 4 tm6 days ago. It hurts to sit tm6
[2024-07-01 19:10] VITALS: BP 138/87; TEMP 98.3; O2SAT 98
== END 2024-07-01 19:05 | disposition home or self-care (01) ==
LOC: ER 17:20
PROC: 0H98XZZ Drainage of Buttock Skin, External Approach (ICD-10-PCS; principal; 2024-07-01)
DX: L02.31 Cutaneous abscess of buttock (principal)
CPT/HCPCS: 82947; 99283

== ENCOUNTER 2024-07-03 10:37 | Emergency (ER) | payer OTHER ==
[2011-11-15 23:42] VITALS: BP 159/90
--- NOTE | 2024-07-03 14:49 | EDPHYS ---
Physician Documentation [facility] Name: Valentina Franco Age: 44 yrs Sex: Female : 1980 Arrival Date: 07/03/2024 Time: 10:37 Bed 12 Private MD: ED Physician Kalpesh Jacobson HPI: 07/03 10:53 This 44 yrs old Female presents to ER via Ambulatory with complaints of Wound ec2 Check. 10:53 Patient arrives today for evaluation of wound. Reportedly had a wound that was ec2 drained and had some packing in place and is here for evaluation. Denies any other concerns. No fevers or chills, nausea or vomiting.. Historical: - Allergies: 10:46 No Known Allergies; hb - PMHx: 10:46 CVA (yeast infection); Atrial fibrillation; Sepsis; Anxiety; Pancreatitis; Depression; hb diabetes mellitus; High Cholesterol; Hypertensive disorder; Kidney stone; UTI; yeast infection; - PSHx: 10:46 ablation; BBL; section; Cholecystectomy; foot surgery; Heart ablation; hb Ligation of fallopian tube; LIPOSUCTION TO CHIN; Tonsillectomy; - Immunization history:: Adult Immunizations up to date. - Infectious Disease History:: Denies. - Social history:: Smoking status: Patient denies any tobacco usage or history of. ROS: 10:53 Constitutional: as per hpi ec2 Exam: 10:53 Constitutional: GEN: NAD Head: atraumatic Eyes: EOMI Ears: External ears are ec2 normal. CV: regular rate LUNGS: no respiratory distress ABD: non-distended SKIN: no evidence of rashes MSK: no evidence of trauma Vital Signs: 10:44 BP 133 / 93; Pulse 89; Resp 16; Temp 97.1; Pulse Ox 99% on R/A; Pain 8/10; hb 10:44 Pain Scale: Adult hb MDM: 11:59 Medical Screening Exam initiated ec2 14:48 Data reviewed: vital signs, nurses notes. ec2 14:48 ED course: Patient arrives today due to concern for wound evaluation. Wound evaluation ec2 performed under the supervision, PETE Walsh, right lower buttock wound with no drainage appreciated, no remaining packing, no surrounding erythema, no fluctuance. Will discharge home have the patient follow-up PCP. Return precautions given.. Administered Medications: No medications were administered Disposition Summary: 07/03/24 14:49 Discharge Ordered Notes: Location: Home ec2 Condition: Stable ec2 Diagnosis - Buttock Abscess, resolved ec2 Followup: ec2 - With: Private Physician - When: - Reason: Re-evaluation by your physician Discharge Instructions: - Discharge Summary Sheet ec2 - Anorectal Abscess ec2 Forms: - Medication Reconciliation Form ec2 - Antibiotic Education ec2 - Prescription Opioid Use ec2 - Patient Portal Instructions ec2 - Leadership Thank You Letter ec2 Prescriptions: - methocarbamol 500 mg Oral tablet - take 1 tablet ORAL route 4 times per day; 20 tablet; Refills: 0, Product ec2 Selection Permitted Signatures: Amelia Louis RN RN Kalpesh Jacobson MD MD ec2
--- NOTE | 2024-07-03 14:49 | ER ---
Nurse's Notes [facility] Name: Valentina Franco Age: 44 yrs Sex: Female : 1980 Arrival Date: 07/03/2024 Time: 10:37 Bed 12 Private MD: Diagnosis: Buttock Abscess, resolved Presentation: 07/03 10:44 Chief complaint: Has abscess labia, here for packing removal. hb 10:45 Coronavirus screen: At this time, the client does not indicate any symptoms associated hb with coronavirus-19. Ebola Screen: No symptoms or risks identified at this time. Initial Sepsis Screen: Does the patient meet any 2 criteria? No. Patient's initial sepsis screen is negative. Does the patient have a suspected source of infection? No. Patient's initial sepsis screen is negative. Risk Assessment: Do you want to hurt yourself or someone else? Patient reports no desire to harm self or others. Onset of symptoms was July 03, 2024. 10:45 Method Of Arrival: Ambulatory hb 10:45 Acuity: CYNTHIA 3 hb Historical: - Allergies: 10:46 No Known Allergies; hb - PMHx: 10:46 CVA (yeast infection); Atrial fibrillation; Sepsis; Anxiety; Pancreatitis; Depression; hb diabetes mellitus; High Cholesterol; Hypertensive disorder; Kidney stone; UTI; yeast infection; - PSHx: 10:46 ablation; BBL; section; Cholecystectomy; foot surgery; Heart ablation; hb Ligation of fallopian tube; LIPOSUCTION TO CHIN; Tonsillectomy; - Immunization history:: Adult Immunizations up to date. - Infectious Disease History:: Denies. - Social history:: Smoking status: Patient denies any tobacco usage or history of. Vital Signs: 10:44 BP 133 / 93; Pulse 89; Resp 16; Temp 97.1; Pulse Ox 99% on R/A; Pain 8/10; hb 10:44 Pain Scale: Adult hb ED Course: 10:40 Patient arrived in ED. al6 10:41 Kalpesh Jacobson MD is Attending Physician. ec2 10:46 Triage completed. hb 10:51 Arm band placed on. hb Administered Medications: No medications were administered Outcome: 14:49 Discharge ordered by . ec2 14:59 Patient left the ED. hb Signatures: Amelia Louis RN RN hb Kalpesh Jacobson MD MD ec2 Toshia Stearns6 Corrections: (The following items were deleted from the chart) 10:46 10:45 Chief complaint: Bleeding hemorrhoid that started today. Takes Brillinta. hb hb 10:46 10:45 BP 158 / 95; Pulse 83bpm; Resp 16bpm; Pulse Ox 100%; Temp 98F; 88.9 kg; Height 5 hb ft. 10 in.; BMI: 28.1; Pain 0/10, Adult; hb
== END 2024-07-03 14:59 | disposition home or self-care (01) ==
LOC: ER 10:37
DX: Z48.00 Encounter for change or removal of nonsurgical wound dressing (principal)
CPT/HCPCS: 99281

== ENCOUNTER 2024-07-10 13:42 | Observation (INO) | payer OTHER ==
[2024-07-10] MEDS ORDERED: HEPA 1000U/500MLS 2,000 UNIT/1,000 ML BAG IV ONE (13:55)
[2024-07-10] MEDS ORDERED: LIDOCAINE 1% 20 ML MDV ONE (13:56)
[2024-07-10] MEDS ORDERED: NITROGLYCERIN/D5W 50 MG/250 ML BTL IV ONE (13:56)
[2024-07-10] MEDS ORDERED: HEPARIN 10,000 UNIT/10 ML VIAL IV ONE (13:56)
[2024-07-10] MEDS ORDERED: MIDAZOLAM HCL 2 MG/2 ML INJ ONE (13:56)
[2024-07-10] MEDS ORDERED: ATROPINE SULF 1 MG/10 ML SYR IV ONE (13:56)
[2024-07-10] MEDS ORDERED: HEPARIN 5000 UNIT/ML 1 ML VIAL ONE (13:57)
[2024-07-10] MEDS ORDERED: ASPIRIN 325 MG TAB ONE (13:57)
[2024-07-10] MEDS ORDERED: TICAGRELOR 90 MG TABLET PO ONE (13:57)
[2024-07-10] MEDS ORDERED: NA CHLORIDE 0.9% 500 ML ONE (13:57)
[2024-07-10] MEDS ORDERED: CLOPIDOGREL 75 MG TABLET ONE (13:57)
[2024-07-10] MEDS ORDERED: FENTANYL CITR 100 MCG/2 ML ONE (13:57)
[2024-07-10] MEDS ORDERED: ASPIRIN 81 MG CHEWABLE TABLET ONE (14:15)
[2024-07-10 14:21] LABS: Absolute Basophils 0.1 K/uL (0-0.5); Absolute Eosinophils 0.1 K/uL (0-0.5); Absolute Lymphocytes (CBC) 2.3 K/uL (0.7-4.9); Absolute Monocytes 0.4 K/uL (0.1-1.3); Absolute Neutrophil 2.8 K/uL (1.8-8.0); Basophils % 1.9 % (0-1.3); Eosinophils % 2.4 % (0-4.4); Hematocrit 40.8 % (36.0-45.0); Hemoglobin 13.4 g/dL (12.0-15.0); MCH 27.6 pg (27.0-35.0); MCHC 32.9 g/dL (32.0-36.0); MCV 84.1 fL (80-100); MPV 7.4 fL (7.6-11.3); Monocytes % 6.6 % (3.3-12.3); Neutrophils % 49.1 % (41.7-73.7); Platelets 294 thou/uL (152-406); RBC Red Blood Cell Count 4.85 M/uL (3.86-4.86)
--- NOTE | 2024-07-10 14:22 | RAD REPORT ---
EXAM: Chest Single View HISTORY: CHEST PAIN COMPARISON: 02/15/2024 FINDINGS: LUNGS/PLEURA: The lungs are clear. No pleural effusions or pneumothorax. No pulmonary edema. MEDIASTINUM: The mediastinal silhouette is within normal limits. CARDIAC: The cardiac silhouette is within normal limits. UPPER ABDOMEN: No significant abnormality. BONES: No acute abnormality. LINES/TUBES/OTHER: N/A IMPRESSION: No evidence of acute cardiopulmonary disease.
[2024-07-10 14:23] LABS: PT Prothrombin Time 11.1 SECONDS (9.4-12.5); Protime INR 0.99
[2024-07-10 14:38] LABS: Anion Gap 13.9 mEq/L (5.0-15.0); BUN Blood Urea Nitrogen 20 mg/dL (7-18); Bicarbonate 21 mEq/L (21-32); Glomerular Filtration Rate 70 ml/min (=/>90); Glucose Level 363 mg/dL (74-106); NT PRO-BNP 12 pg/mL (<125); Potassium 3.9 mEq/L (3.5-5.1); Sodium Level 133 mEq/L (136-145)
[2024-07-10 14:40] LABS: Troponin High Sensitivity < 3.0 pg/mL (<58.9)
--- NOTE | 2024-07-10 14:42 | EDPHYS ---
Physician Documentation [facility] Name: Valentina Franco Age: 44 yrs Sex: Female : 1980 Arrival Date: 07/10/2024 Time: 13:42 Bed 4 Private MD: ED Physician Tiburcio Linder HPI: 07/10 14:38 This 44 yrs old Female presents to ER via Ambulatory with complaints of Chest rn Pain. 14:38 The patient or guardian reports chest pain that is located primarily in the substernal rn area. Onset: at an unknown time. Associated signs and symptoms: Pertinent negatives: abdominal pain, cough. The chest pain is described as a heaviness. Severity of pain: At its worst the pain was moderate in the emergency department the pain has improved. The patient has experienced similar episodes in the past. Patient sent by Dr. Light for feeling stress test in clinic today. Patient reports intermittent chest pain for some time now with multiple ER visits and clear etiology. Ongoing chest pain prompted her to see Dr. 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 - Infectious Disease History:: Denies. - Social history:: Smoking status: Patient denies any tobacco usage or history of. - Family history:: not pertinent. - Hospitalizations: : No recent hospitalization is reported. ROS: 14:38 Constitutional: Negative for fever, chills, and weight loss, Cardiovascular: Positive rn for chest pain Respiratory: Negative for shortness of breath, cough, wheezing, and pleuritic chest pain, Abdomen/GI: Negative for abdominal pain, nausea, vomiting, diarrhea, and constipation, MS/Extremity: Negative for injury and deformity, Skin: Negative for injury, rash, and discoloration, Neuro: Negative for headache, weakness, numbness, tingling, and seizure, Exam: 14:38 Constitutional: This is a well developed, well nourished patient who is awake, alert, rn emotional and tearful Head/Face: Normocephalic, atraumatic. Cardiovascular: Tachycardic, regular. Respiratory: No increased work of breathing, no retractions or nasal flaring. Abdomen/GI: Soft, non-tender MS/ Extremity: Pulses equal, no cyanosis. Neuro: Awake and alert, GCS 15 14:42 ECG was reviewed by the Attending Physician. rn Vital Signs: 13:47 BP 112 / 87; Pulse 116; Resp 18; Temp 97; Pulse Ox 100% ; ko1 14:45 BP 121 / 93; Pulse 105; Resp 19; Pulse Ox 99% on R/A; iw MDM: 13:47 Medical Screening Exam initiated rn 14:40 Differential diagnosis: acute myocardial infarction, acute pericarditis, anxiety, rn coronary artery disease. Data reviewed: vital signs, nurses notes, lab test result(s), EKG, radiologic studies, plain films, and as a result, I will admit patient. Consideration of Admission/Observation Patient was admitted/placed on observation. Escalation of care including admission/observation considered. Counseling: I had a detailed discussion with the patient and/or guardian regarding the historical points, exam findings, and any diagnostic results supporting the discharge/admit diagnosis, lab results, radiology results, the need for further work-up and treatment in the hospital. 07/10 13:47 Order name: Basic Metabolic Panel; Complete Time: 14:41 rn 07/10 13:47 Order name: CBC with Diff; Complete Time: 14:23 rn 07/10 13:47 Order name: NT PRO-BNP; Complete Time: 14:41 rn 07/10 13:47 Order name: PT-INR; Complete Time: 14:23 rn 07/10 13:47 Order name: Troponin HS; Complete Time: 14:41 rn 07/10 13:47 Order name: XRAY Chest (1 view); Complete Time: 14:23 rn 07/10 14:48 Order name: CL LEFT HEART WITHOUT LV EDMS 07/10 13:47 Order name: EKG; Complete Time: 13:48 rn 07/10 13:47 Order name: Cardiac monitoring; Complete Time: 14:49 rn 07/10 13:47 Order name: EKG - Nurse/Tech; Complete Time: 14:09 rn 07/10 13:47 Order name: IV Saline Lock; Complete Time: 14:49 rn 07/10 13:47 Order name: Labs collected and sent; Complete Time: 14:49 rn 07/10 13:47 Order name: O2 Per Protocol; Complete Time: 14:49 rn 07/10 13:47 Order name: O2 Sat Monitoring; Complete Time: 14:49 rn EC:42 Rate is 101 beats/min. Rhythm is regular. IL interval is normal. QRS interval is rn prolonged at 134 msec. QT interval is normal. No Q waves. T waves are Inverted in leads III, V1, V2, V3. No ST changes noted. Clinical impression: Sinus tachycardia. Interpreted by me. Reviewed by me. 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 EDI DALEY
--- NOTE | 2024-07-10 14:42 | ER ---
Nurse's Notes [facility] Name: Valentina Franco Age: 44 yrs Sex: Female : 1980 Arrival Date: 07/10/2024 Time: 13:42 Bed 4 Private MD: Diagnosis: Chest pain, unspecified;Unstable angina Presentation: 07/10 13:47 Chief complaint: Patient states: was at the Dr having stress chest, started having ko1 chest pain and was sent over here. Coronavirus screen: At this time, the client does not indicate any symptoms associated with coronavirus-19. Ebola Screen: No symptoms or risks identified at this time. Initial Sepsis Screen: Does the patient meet any 2 criteria? No. Patient's initial sepsis screen is negative. Does the patient have a suspected source of infection? No. Patient's initial sepsis screen is negative. Risk Assessment: Do you want to hurt yourself or someone else? Patient reports no desire to harm self or others. Onset of symptoms was July 10, 2024. 13:47 Method Of Arrival: Ambulatory ko1 13:47 Acuity: CYNTHIA 3 ko1 Triage Assessment: 13:51 General: Appears in no apparent distress. Behavior is anxious. Pain: Complains of pain ko1 in chest. Cardiovascular: Reports chest pain. 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 - Infectious Disease History:: Denies. - Social history:: Smoking status: Patient denies any tobacco usage or history of. - Family history:: not pertinent. - Hospitalizations: : No recent hospitalization is reported. Screenin:21 [facility] ED Fall Risk Assessment (Adult) History of falling in the last 3 months, iw including since admission No falls in past 3 months (0 pts) Confusion or Disorientation No (0 pts) Intoxicated or Sedated No (0 pts) Impaired Gait No (0 pts) Mobility Assist Device Used No (0 pt) Altered Elimination No (0 pt) Score/Fall Risk Level 0 - 2 = Low Risk Oriented to surroundings, Maintained a safe environment. Abuse screen: Denies threats or abuse. Nutritional screening: No deficits noted. Tuberculosis screening: No symptoms or risk factors identified. Assessment: 14:08 General: Appears in no apparent distress. Behavior is cooperative, anxious. Pain: iw Complains of pain in chest. Pain: Pain began 1 hour ago. Aggravated by exercise, increased activity. Neuro: Level of Consciousness is awake, alert, obeys commands, Oriented to person, place, time, situation, Moves all extremities. Full function. Cardiovascular: Patient's skin is warm and dry. Rhythm is sinus tachycardia. Respiratory: Respiratory effort is even, unlabored, Respiratory pattern is regular, symmetrical. 14:10 Reassessment: medical laboratory scientist RN at bedside to transport pt. iw Vital Signs: 13:47 BP 112 / 87; Pulse 116; Resp 18; Temp 97; Pulse Ox 100% ; ko1 14:45 BP 121 / 93; Pulse 105; Resp 19; Pulse Ox 99% on R/A; iw ED Course: 13:45 Patient arrived in ED. al6 13:47 Tiburcio Linder MD is Attending Physician. rn 13:51 Triage completed. ko1 13:51 Arm band placed on right wrist. Patient placed in an exam room, on a stretcher, on ko1 debt management counselor, on pulse oximetry, Patient notified of wait time. 14:10 No provider procedures requiring assistance completed. Inserted saline lock: 20 gauge iw in right antecubital area, using aseptic technique. Blood collected. Flushed with 10 mL NS IV inserted by PETE Chavez. 14:20 XRAY Chest (1 view) In Process Unspecified. EDMS 14:21 Maira Brooks, PETE is Primary Nurse. iw 14:22 Patient maintains SpO2 saturation greater than 95% on room air. iw 14:23 Patient has correct armband on for positive identification. Provided Education on: need iw for heart cath. Client placed on continuous cardiac and pulse oximetry monitoring. NIBP monitoring applied. cardiovascular sonographer on. 14:41 Hope Muhammad is Hospitalizing Provider. rn 14:50 Patient admitted, IV remains in place. iw Administered Medications: 14: Drug: Aspirin PO Chewable Tablet 324 mg PO once; 81 mg tablets x 4 Route: PO; iw 14:30 Follow up: Response: No adverse reaction iw Medication: 14:21 VIS not applicable for this client. iw Outcome: 14:41 Decision to Hospitalize by Provider. rn 14:50 Admitted to Dental Laboratory Assistant accompanied by nurse, via stretcher, with chart, iw 14:50 Condition: good 14:50 Discharge instructions given to patient, family, Instructed on the need for admit, 14:50 Patient left the ED. iw Signatures: Dispatcher [employer] EDMaira Pelletier RN RN iw Tiburcio Linder MD MD rn Oliver, Kathy, RN RN Toshia Owusu
--- NOTE | 2024-07-10 15:08 | P.HP ---
Certification for Inpatient Patient admitted to: Observation Practitioner: I am a practitioner with admitting privileges, knowledge of patient current condition, hospital course, and medical plan of care. Services: Services provided to patient in accordance with Admission requirements found in Title 42 Section 412.3 of the Code of Federal Regulations Patient History Date of Service: 07/10/24 Reason for admission: Unstable angina History of Present Illness: 44 yrs old Female with past medical history Anxiety; Atrial fibrillation; CVA (yeast infection); Depression; diabetes mellitus; High C holesterol; Hypertensive disorder; Kidney stone; Pancreatitis; Sepsis; UTI; yeast infection; presents to the emergency room after being referred by Dr Light for failing outpatient stress test. She was taken to the [facility] from the emergency room. Patient seen and preop holding. Allergies No Known Allergies Allergy (Verified 09/16/17 03:51) Home Medications: Metformin HCl 1,000 mg PO BID 09/16/17 Fenofibrate,Micronized [Fenofibrate] 1 tab PO DAILY 12/07/21 Insulin Aspart [Novolog Flexpen] 26 unit SQ TID 11/28/22 Buspirone HCl [Buspar*] 5 mg PO BID tab 02/22/24 Fish Oil/Dha/Epa [Fish Oil 1,200 mg Fish Oil] 2 each PO TID 06/24/24 Fluoxetine HCl [Prozac] 40 tab PO DAILY 06/24/24 Trazodone [Desyrel*] 150 mg PO BEDTIME 06/24/24 Dulaglutide [Trulicity] 0.75 mg SQ 07/10/24 Ezetimibe [Zetia] 10 mg PO DAILY 07/10/24 Fluoxetine HCl [Prozac] 40 mg PO 07/10/24 Gabapentin 300 mg PO DAILY 07/10/24 Glimepiride 4 mg PO DAILY 07/10/24 Insulin Glargine,Hum.rec.anlog [Basaglar Kwikpen U-100] 104 unit SQ BEDTIME 07/10/24 Metoprolol Succinate [Kapspargo Sprinkle] 25 mg PO DAILY 07/10/24 Rivaroxaban [Xarelto] 20 mg PO DAILY 07/10/24 - Past Medical/Surgical History Diabetic: Yes -: DIABETIC TYPE II -: CHOLESTEROL -: DEPRESSION -: Paroxysmal A-fib on Xarelto -: Unstable angina -: hernia repair -: heart ablation -: broke foot -: tonsillectomy -: KATTY -: X3 Psychosocial/ Personal History: Lives at home with daughters - Family History Mother -: Diabetes - Social History Alcohol use: No CD- Drugs: No Caffeine use: Yes Review of Systems 10-point ROS is otherwise unremarkable Physical Examination - Physical Exam General: Alert, In no apparent distress, Oriented x3 HEENT: Atraumatic, Normocephalic Neck: Supple, 2+ carotid pulse no bruit Respiratory: Clear to auscultation bilaterally, Normal air movement Cardiovascular: Normal pulses, Regular rate/rhythm, Normal S1 S2 Capillary refill: <2 Seconds Gastrointestinal: Normal bowel sounds, Soft and benign Musculoskeletal: No clubbing, No swelling Integumentary: No breakdown, No significant lesion Neurological: Normal speech, Normal strength at 5/5 x4 extr - Studies Laboratory Data (last 24 hrs) 07/10/24 07/10/24 07/10/24 14:11 14:11 14:11 WBC 5.70 Hgb 13.4 Hct 40.8 Plt Count 294 PT 11.1 INR 0.99 Sodium 133 L Potassium 3.9 BUN 20 H Creatinine 1.01 Glucose 363 H Assessment and Plan - Problems (Diagnosis) (1) Unstable angina Current Visit: Yes Status: Acute (2) Status post cardiac catheterization Current Visit: Yes Status: Acute (3) Abnormal EKG Current Visit: Yes Status: Acute (4) Diabetes type 2 Current Visit: Yes Status: Acute Qualifiers: Diabetes mellitus [facility] insulin use: with parts counterman use Diabetes mellitus complication status: with hyperglycemia Qualified Code(s): E11.65 - Type 2 diabetes mellitus with hyperglycemia; Z79.4 - buttermaker continuous churn (current) use of insulin (5) Hyperlipidemia Current Visit: Yes Status: Acute Qualifiers: Hyperlipidemia type: unspecified Qualified Code(s): E78.5 - Hyperlipidemia, unspecified (6) History of CVA (cerebrovascular accident) Current Visit: Yes Status: Acute (7) HTN (hypertension) Current Visit: No Status: Acute - Plan Assessment plan Unstable angina, Cardiology consult, telemetry, N.p.o. for heart cath, Diabetes with hyperglycemia, Accu-Cheks, sliding scale insulin, A1c in the a.m. Hypertension, Hyperlipidemia, Resume home meds Lipid panel in the a.m. History of CVA Fall precautions, Full code DVT SCDs Diet cardiac after heart cath Disposition Home independent prior Discharge Plan: Home - Advance Directives Does patient have a Living Will: No Does patient have a Durable POA for Healthcare: No - Code Status/Comfort Care Code Status: Full Code
[2024-07-10] MEDS ORDERED: ACETAMINOPHEN 500 MG TAB PO PRN (15:11)
[2024-07-10] MEDS ORDERED: ONDANSETRON 4 MG/2 ML VIAL IV PRN (15:11)
[2024-07-10] MEDS ORDERED: D10W 125 ML IV PRN (15:43)
[2024-07-10] MEDS ORDERED: GLUCAGON 1 MG/VIAL IM PRN (15:43)
[2024-07-10 16:27] VITALS: BMI 36.6
[2024-07-10] MEDS ORDERED: INSULIN REGULAR (HUMAN) 100 UNIT/ML SQ SCH (16:30)
--- NOTE | 2024-07-10 16:58 | P.DS ---
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 Diabetes mellitus complication status: with hyperglycemia Qualified Code(s): E11.65 - Type 2 diabetes mellitus with hyperglycemia; Z79.4 - senior care (current) use of insulin (5) Hyperlipidemia Current Visit: Yes Status: Acute Qualifiers: Hyperlipidemia type: unspecified Qualified Code(s): E78.5 - Hyperlipidemia, unspecified (6) History of CVA (cerebrovascular accident) Current Visit: Yes Status: Acute (7) HTN (hypertension) Current Visit: No Status: Acute Brief History of Present Illness: 44 yrs old Female with past medical history Anxiety; Atrial fibrillation; CVA (yeast infection); Depression; diabetes mellitus; High Cholest janny; Hypertensive disorder; Kidney stone; Pancreatitis; Sepsis; UTI; yeast infection; presents to the emergency room after being referred by Dr Light for failing outpatient stress test. Hospital Course: 44-year-old female with past medical history Anxiety; Atrial fibrillation; CVA (yeast infection); Depression; diabetes mellitus; High Cholesterol; Hypertensive disorder; Kidney stone; Pancreatitis; Sepsis; UTI; yeast infection; presents to the emergency room after being referred by Dr Light for failing outpatient stress test. From the emergency room she went to the [facility], unremarkable angiogram, no intervention noted. Per cardiology she stable to discharge home, follow-up with cardiology after discharge Assessment Unstable angina-angiogram unremarkable, follow-up with cardiology after discharge, Diabetes with hyperglycemia, take blood glucose log to primary care appointment, after discharge Hypertension resume home meds Hyperlipidemia resume home meds Laboratory value troponins less than 3, BNP 12, Chest x-ray no acute abnormality Continue home medicines as previously prescribed GOAL: Clear understanding of disease process INSTRUCTIONS: Physician Discharge Instructions: -Follow-up with PCP in 1 to 2 weeks -Please call if any questions regarding hospital stay -Please call nursing station at [phone] if any nursing or medication qu estions -Return to the emergency room if symptoms worsen Diet: ADA, low sodium Activity: Fall precautions Vital Signs/Physical Exam: Temp Pulse Resp BP Pulse Ox 95 H 16 105/71 07/10/24 16:45 07/10/24 16:45 07/10/24 16:45 Laboratory Data at Discharge: WBC 5.70 thou/uL (4.3-10.9) 07/10/24 14:11 Hgb 13.4 g/dL (12.0-15.0) 07/10/24 14:11 Hct 40.8 % (36.0-45.0) 07/10/24 14:11 Plt Count 294 thou/uL (152-406) 07/10/24 14:11 PT 11.1 SECONDS (9.4-12.5) 07/10/24 14:11 INR 0.99 07/10/24 14:11 Sodium 133 mEq/L (136-145) L 07/10/24 14:11 Potassium 3.9 mEq/L (3.5-5.1) 07/10/24 14:11 BUN 20 mg/dL (7-18) H 07/10/24 14:11 Creatinine 1.01 mg/dL (0.55-1.02) 07/10/24 14:11 Glucose 363 mg/dL (74-106) H 07/10/24 14:11 Home Medications: Metformin HCl 1,000 mg PO BID 09/16/17 Fenofibrate,Micronized [Fenofibrate] 1 tab PO DAILY 12/07/21 Insulin Aspart [Novolog Flexpen] 26 unit SQ TID 11/28/22 Buspirone HCl [Buspar*] 5 mg PO BID tab 02/22/24 Fish Oil/Dha/Epa [Fish Oil 1,200 mg Fish Oil] 2 each PO TID 06/24/24 Fluoxetine HCl [Prozac] 40 tab PO DAILY 06/24/24 Trazodone [Desyrel*] 150 mg PO BEDTIME 06/24/24 Dulaglutide [Trulicity] 0.75 mg SQ 07/10/24 Ezetimibe [Zetia] 10 mg PO DAILY 07/10/24 Fluoxetine HCl [Prozac] 40 mg PO 07/10/24 Gabapentin 300 mg PO DAILY 07/10/24 Glimepiride 4 mg PO DAILY 07/10/24 Insulin Glargine,Hum.rec.anlog [Basaglar Kwikpen U-100] 104 unit SQ BEDTIME 07/10/24 Metoprolol Succinate [Kapspargo Sprinkle] 25 mg PO DAILY 07/10/24 Rivaroxaban [Xarelto] 20 mg PO DAILY 07/10/24 Followup: NONE,NONE [Primary Care Provider] -
[2024-07-10 21:01] VITALS: TEMP 97
[2024-07-10 21:03] VITALS: BP 121/93; O2SAT 99
--- NOTE | 2024-07-10 23:34 | OP ---
Date of Procedure: 07/10/2024 Surgeon: David Navarro Procedure Performed: Selective coronary angiogram. Indication For Procedure: Chest pain, abnormal stress test. Complications: None. Estimated Blood Loss: Less than 50 cc. Access: Right radial, closed by TR band. Sedation Time: 20 minutes with 2 of Versed and 50 of fentanyl. Description Of Procedure: After risks, benefits, and alternatives were explained to the patient, the patient agreed to proceed with procedure and signed informed consent. The patient was brought back to the cath lab tech, prepped and draped in sterile fashion. Time-out was performed. Sedation was admini stered. Next, right radial access was obtained using ultrasound-guided micropuncture technique and t heydi placed a [place] 4 catheter, was advanced over J-wire to the aortic root. Selective angiogram was done using this catheter. At the end of procedure, catheter was removed over a J-wire. Sheath was r emoved. TR band was applied. Hemostasis achieved. The patient was moved to recovery in stable cond ition. Findings: 1.Tortuous arteries. 2.Left main normal. 3.LAD, tortuous, normal. 4.Left circ, tortuous, normal. 5.RCA, tortuous, normal. Assessment And Plan: Normal tortuous coronaries. Plan will be to continue medical management. BECKY/EDNA Voice ID: [id number] Report ID: [id number]
--- NOTE | 2024-07-13 12:48 | EKG ---
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
== END 2024-07-10 18:10 | disposition home or self-care (01) ==
LOC: ER 13:42 → ERHOLD 15:09 → 2ND 16:16
PROVIDERS: ADMIT Hospitalist; ATTEND Hospitalist
PROC: B2111ZZ Fluoroscopy of Multiple Coronary Arteries using Low Osmolar Contrast (ICD-10-PCS; principal; 2024-07-10)
DX: I20.0 Unstable angina (principal); E11.65 Type 2 diabetes mellitus with hyperglycemia; R94.31 Abnormal electrocardiogram [ECG] [EKG]; I10 Essential (primary) hypertension; I48.0 Paroxysmal atrial fibrillation; E78.5 Hyperlipidemia, unspecified; E78.00 Pure hypercholesterolemia, unspecified; F41.9 Anxiety disorder, unspecified; F32.A Depression, unspecified; Z86.73 Personal history of transient ischemic attack (TIA), and cerebral infarction without residual deficits; Z79.4 Long term (current) use of insulin; Z79.84 Long term (current) use of oral hypoglycemic drugs; Z79.899 Other long term (current) drug therapy; Z90.49 Acquired absence of other specified parts of digestive tract; Z83.3 Family history of diabetes mellitus
CPT/HCPCS: 93005; 85025; 80048; 36415; 85610; 84484; 83880; 71045; 93454; 76937; 99285; C1893; Q9966; J1644; J2003; J2250; J3010; G0378 ×2; J7040; 99152; 99153; J0461

== ENCOUNTER 2024-07-23 17:19 | Emergency (ER) | payer OTHER ==
[2024-07-23 18:29] LABS: Specific Gravity 1.028 (1.005-1.030); Sqamous Epithelial <5 /HPF (None Seen); Urine Bacteria None Seen /HPF (<20); Urine Bilirubin NEGATIVE (Negative); Urine Blood Negative (Negative); Urine Clarity Clear (Clear); Urine Color Colorless (Yellow); Urine Culture Reflex Order NOT NEEDED; Urine Glucose 4+ (Over) (Negative); Urine Ketones NEGATIVE (Negative); Urine Microscopic Reflex YN ORDER UMIC; Urine Nitrite NEGATIVE (Negative); Urine Protein 1+ (Negative); Urine RBC <5 /HPF (None Seen); Urine Urobilinogen Normal (Normal); Urine WBC <5 /HPF (<5)
[2024-07-23 19:19] LABS: Absolute Basophils 0.1 K/uL (0-0.5); Absolute Eosinophils 0.1 K/uL (0-0.5); Absolute Lymphocytes (CBC) 2.8 K/uL (0.7-4.9); Absolute Monocytes 0.4 K/uL (0.1-1.3); Absolute Neutrophil 2.3 K/uL (1.8-8.0); Basophils % 1.2 % (0-1.3); Eosinophils % 2.4 % (0-4.4); Hematocrit 37.3 % (36.0-45.0); Hemoglobin 13.4 g/dL (12.0-15.0); Lymphocytes % 49.3 % (15.3-44.8); MCH 29.5 pg (27.0-35.0); MCHC 35.9 g/dL (32.0-36.0); MPV 7.4 fL (7.6-11.3); Monocytes % 6.4 % (3.3-12.3); Neutrophils % 40.7 % (41.7-73.7); Nucleated Red Blood Cells % 0.1 % (0-0); Platelets 253 thou/uL (152-406); RBC Red Blood Cell Count 4.55 M/uL (3.86-4.86); Red Cell Distribution Width 14.4 % (12.1-15.2)
[2024-07-23 20:29] LABS: Albumin 3.4 g/dL (3.4-5.0); Albumin/Globulin Ratio 0.8 (1.1-1.8); Anion Gap 14.7 mEq/L (5.0-15.0); Bilirubin Total 0.6 mg/dL (0.2-1.0); Globulin 4.4 g/dL (2.3-3.5); Protein, Total 7.8 g/dL (6.4-8.2)
[2024-07-23 20:30] LABS: Potassium 3.7 mEq/L (3.5-5.1)
[2024-07-23] MEDS ORDERED: ONDANSETRON 4 MG/2 ML VIAL ONE (20:58)
--- NOTE | 2024-07-23 21:39 | RAD REPORT ---
EXAMINATION: CT Abdomen Pelvis W Contrast CLINICAL INDICATION: Female, 44 years old. ABDOMINAL BLOATING;Abd pain TECHNIQUE: CT abdomen and pelvis was performed, after the administration of IV contrast, as per [facility] protocol. Axial, sagittal and coronal reconstructions were obtained. One or more of the following dose reduction techniques were used: Automated exposure control, adjustment of the mA and k V according to patient size, and iterative reconstruction. Unless otherwise specified, incidental findings do not require dedicated imaging follow-up. COMPARISON: 02/20/2024, and 05/23/2024 FINDINGS: LOWER CHEST: The left lower lobe shows interlobular septal thickening. Mild platelike atelectatic young nges. LIVER: Significant fatty liver with hepatomegaly present. No focal lesion or biliary dilitation. BILIARY SYSTEM: Status post cholecystectomy. SPLEEN: Normal size. No focal lesion. PANCREAS: No mass, ductal dilation, or balaji-pancreatic fluid. ADRENALS: Normal; no mass. KIDNEYS: Normal size and contour. No hydronephrosis. Right superior pole 2 mm calculus. URINARY BLADDER: Unremarkable. GASTROINTESTINAL TRACT: No evidence of free air, significant intra-abdominal free fluid, bowel obstru ction or abscess. Moderate stool burden throughout the colon. Mild distal colonic diverticulosis. APPENDIX: Normal appendix. LYMPH NODES: No lymphadenopathy. MUSCULOSKELETAL: No acute or suspicious osseous abnormality. ADDITIONAL FINDINGS: Asymmetric stable prominence of the right rectus abdominis muscle with multifoca l calcifications again seen. Numerous predominantly noncalcified injection granulomas within the buttock regions bilaterally. Right sacral neuromodulator in place. IMPRESSION: Right superior renal pole 2 mm nonobstructing calculus. Diffuse parenchymal hepatic hypoattenuation with hepatomegaly suggesting steatosis. This is stable. Moderate stool burden throughout the colon. Other stable findings as above.
--- NOTE | 2024-07-23 21:43 | ER ---
Nurse's Notes [facility] Name: Valentina Franco Age: 44 yrs Sex: Female : 1980 Arrival Date: 07/23/2024 Time: 17:19 Bed 10 Private MD: Diagnosis: Constipation, unspecified;Abdominal distension (gaseous) Presentation: 07/23 17:49 Chief complaint: Patient states: Abdominal pain and distention onset yesterday. Pt also cm10 reports nausea. Coronavirus screen: Client denies travel out of the [place] in the last 14 days. Ebola Screen: Patient denies travel to an Ebola-affected area in the 21 days before illness onset. Initial Sepsis Screen: Does the patient meet any 2 criteria? HR > 90 bpm. Does the patient have a suspected source of infection? No. Patient's initial sepsis screen is negative. Risk Assessment: Do you want to hurt yourself or someone else? Patient reports no desire to harm self or others. Onset of symptoms was July 23, 2024. 17:49 Method Of Arrival: Ambulatory cm10 17:49 Acuity: CYNTHIA 3 cm10 Triage Assessment: 17:51 General: Appears in no apparent distress. uncomfortable, Behavior is calm, cooperative. cm10 Neuro: No deficits noted. Level of Consciousness is awake, alert, obeys commands, Oriented to person, place, time, situation, Appropriate for age. Respiratory: No deficits noted. Airway is patent Respiratory effort is even, unlabored, Respiratory pattern is regular, symmetrical. GI: Abdomen is distended. Historical: - Allergies: 17:50 No Known Allergies; cm10 - PMHx: 17:50 Anxiety; Atrial fibrillation; CVA (yeast infection); Depression; diabetes mellitus; cm10 High Cholesterol; Hypertensive disorder; Kidney stone; Pancreatitis; Sepsis; UTI; yeast infection; - PSHx: 17:50 ablation; BBL; section; Cholecystectomy; foot surgery; Heart ablation; cm10 Ligation of fallopian tube; LIPOSUCTION TO CHIN; Tonsillectomy; - Immunization history:: Adult Immunizations up to date. - Infectious Disease History:: Denies. - Social history:: Smoking status: Patient denies any tobacco usage or history of. Screenin:46 [facility] ED Fall Risk Assessment (Adult) History of falling in the last 3 months, jb4 including since admission No falls in past 3 months (0 pts) Confusion or Disorientation No (0 pts) Intoxicated or Sedated No (0 pts) Impaired Gait No (0 pts) Mobility Assist Device Used No (0 pt) Altered Elimination No (0 pt) Score/Fall Risk Level 0 - 2 = Low Risk Oriented to surroundings, Maintained a safe environment. Abuse screen: Denies threats or abuse. Nutritional screening: No deficits noted. Tuberculosis screening: No symptoms or risk factors identified. Assessment: 18:45 General: Appears in no apparent distress. uncomfortable, Behavior is calm, cooperative. jb4 Pain: Complains of pain in abdomen Pain does not radiate. Pain currently is 10 out of 10 on a pain scale. Neuro: Level of Consciousness is awake, alert, obeys commands, Oriented to person, place, time, situation. Cardiovascular: Patient's skin is warm and dry. Respiratory: Airway is patent Respiratory effort is even, unlabored, Respiratory pattern is regular, symmetrical. GI: Abdomen is round distended, Firm and tender x4. Derm: Skin is intact, Skin is pink, warm \\T\\ dry. Musculoskeletal: Circulation, motion, and sensation intact. Range of motion: intact in all extremities. 20:00 Reassessment: Patient appears in no apparent distress at this time. Patient and/or jb4 family updated on plan of care and expected duration. Pain level reassessed. Patient is alert, oriented x 3, equal unlabored respirations, skin warm/dry/pink. 20:53 Reassessment: Patient appears in no apparent distress at this time. Patient and/or jb4 family updated on plan of care and expected duration. Pain level reassessed. Patient is alert, oriented x 3, equal unlabored respirations, skin warm/dry/pink. 21:45 Reassessment: Patient appears in no apparent distress at this time. Patient and/or jb4 family updated on plan of care and expected duration. Pain level reassessed. Patient is alert, oriented x 3, equal unlabored respirations, skin warm/dry/pink. Asked ER provider if BGL of 373 needed to be treated, Provider states " pt not is not in DKA. She can manage her blood sugar at home.". Vital Signs: 17:49 BP 140 / 83; Pulse 101; Resp 19; Temp 96.8(TE); Pulse Ox 98% on R/A; Weight 95.25 kg; cm10 Height 5 ft. 4 in. ; Pain 10/10; 20:53 BP 120 / 78; Pulse 92; Resp 16; Pulse Ox 98% on R/A; jb4 21:53 BP 120 / 65; Pulse 68; Resp 16; Pulse Ox 86% on R/A; jb4 17:49 Body Mass Index 36.05 (95.25 kg, 162.56 cm) cm10 17:49 Pain Scale: Adult cm10 ED Course: 17:21 Patient arrived in ED. ra3 17:22 Shanthi Valdez PA-C is PHCP. sb4 17:22 Tiburcio Linder MD is Attending Physician. sb4 17:50 Triage completed. cm10 17:51 Arm band placed on left wrist. Patient placed in waiting room. cm10 19:06 Inserted saline lock: 18 gauge in right antecubital area, using aseptic technique. jb4 Blood collected. 19:07 CBC with Diff Sent. jb4 19:07 CMP Sent. jb4 19:07 Lipase Sent. jb4 19:17 Anil Slater, RN is Primary Nurse. jb4 20:34 Attending Physician role handed off by Tiburcio Linder MD ec2 20:34 Kalpesh Jacobson MD is Attending Physician. ec2 20:48 CT Abd/Pelvis - IV Contrast Only In Process Unspecified. EDMS 21:46 Patient has correct armband on for positive identification. Bed in low position. Call jb4 light in reach. Side rails up X 1. Provided Education on: discharge instructions.. 21:46 No provider procedures requiring assistance completed. jb4 21:53 IV discontinued, intact, bleeding controlled, No redness/swelling at site. Pressure jb4 dressing applied. Administered Medications: 21:02 Drug: Ondansetron IVP 4 mg IVP once; over 2 minutes Route: IVP; Site: right forearm; jb4 21:47 Follow up: Response: No adverse reaction; Marked relief of symptoms jb4 Outcome: 21:42 Discharge ordered by . ec2 21:53 Discharged to home ambulatory, jb4 21:53 Condition: stable 21:53 Discharge instructions given to patient, Instructed on discharge instructions, follow up and referral plans. medication usage, Demonstrated understanding of instructions, follow-up care, medications, Prescriptions given X 1, 21:54 Patient left the ED. jb4 Signatures: Dispatcher [employer] Anil Rizo RN RN jb4 Shanthi Valdez PA-C PA-C sb4 Loren Ortiz RN RN cm10 Kalpesh Jacobson MD MD ec2 Beryl Bhakta 3
--- NOTE | 2024-07-23 21:43 | EDPHYS ---
Physician Documentation [facility] Name: Valentina Franco Age: 44 yrs Sex: Female : 1980 Arrival Date: 07/23/2024 Time: 17:19 Bed 10 Private MD: ED Physician Kalpesh Jacobson HPI: 07/23 18:05 This 44 yrs old Female presents to ER via Ambulatory with complaints of sb4 abdominal pain/bloating. 18:05 Onset: The symptoms/episode began/occurred yesterday. sb4 18:05 The patient presents with abdominal pain abdominal distention that is diffuse. Onset: sb4 The symptoms/episode began/occurred today. The symptoms do not radiate. Associated signs and symptoms: Pertinent positives: nausea, Pertinent negatives: constipation, diarrhea. The patient has not experienced similar symptoms in the past. Historical: - Allergies: 17:50 No Known Allergies; cm10 - PMHx: 17:50 Anxiety; Atrial fibrillation; CVA (yeast infection); Depression; diabetes mellitus; cm10 High Cholesterol; Hypertensive disorder; Kidney stone; Pancreatitis; Sepsis; UTI; yeast infection; - PSHx: 17:50 ablation; BBL; section; Cholecystectomy; foot surgery; Heart ablation; cm10 Ligation of fallopian tube; LIPOSUCTION TO CHIN; Tonsillectomy; - Immunization history:: Adult Immunizations up to date. - Infectious Disease History:: Denies. - Social history:: Smoking status: Patient denies any tobacco usage or history of. ROS: 18:05 Constitutional: Negative for fever, chills, and weight loss, sb4 18:05 Abdomen/GI: Positive for abdominal pain, nausea, abdominal distension, 18:05 All other systems are negative, Exam: 18:05 Constitutional: This is a well developed, well nourished patient who is awake, alert, sb4 and in no acute distress. Head/Face: Normocephalic, atraumatic. Eyes: Extra-ocular motions intact. Periorbital areas with no swelling, redness, or edema. ENT: Mucous membranes moist. Cardiovascular: Regular rate and rhythm with a normal S1 and S2. Respiratory: No increased work of breathing, no retractions or nasal flaring. Skin: Warm, dry with normal turgor. Normal color with no rashes, no lesions, and no evidence of cellulitis. 18:05 Abdomen/GI: Inspection: distension, that is moderate, in the right upper quadrant, left upper quadrant, right lower quadrant and left lower quadrant, obese Bowel sounds: diminished, Palpation: mild abdominal tenderness, in the right upper quadrant and left upper quadrant, Vital Signs: 17:49 BP 140 / 83; Pulse 101; Resp 19; Temp 96.8(TE); Pulse Ox 98% on R/A; Weight 95.25 kg; cm10 Height 5 ft. 4 in. ; Pain 10/10; 20:53 BP 120 / 78; Pulse 92; Resp 16; Pulse Ox 98% on R/A; jb4 21:53 BP 120 / 65; Pulse 68; Resp 16; Pulse Ox 86% on R/A; jb4 17:49 Body Mass Index 36.05 (95.25 kg, 162.56 cm) cm10 17:49 Pain Scale: Adult cm10 MDM: 17:32 Medical Screening Exam initiated sb4 18:37 Differential diagnosis: bowel obstruction, Hepatitis, non-specific abd pain, sb4 Peritonitis, cirrhosis. 20:48 Data reviewed: vital signs, nurses notes. ED course: Patient signed out to me with ec2 pending CT abdomen pelvis. In brief patient arrives today with abdominal pain and distention along with nausea. Patient had lab work that shows a reassuring CBC, metabolic profile that shows renal dysfunction with a creatinine of 1.12 and a GFR of 61. Urine is noninfectious appearing. Lipase within normal ranges negative testing. Plan to follow-up CT abdomen pelvis and reassess.. 21:42 ED course: CT abdomen pelvis shows no actionable process, does show constipation which ec2 likely contributes to the patient's distention. Will discharge home with lactulose. Return precautions given.. 07/23 17:52 Order name: CBC with Diff; Complete Time: 19:22 sb4 07/23 17:52 Order name: CMP; Complete Time: 20:31 sb4 07/23 17:52 Order name: Lipase; Complete Time: 20:31 sb4 07/23 17:52 Order name: Test, Urine; Complete Time: 18:32 sb4 07/23 17:52 Order name: Urinalysis w/ reflexes; Complete Time: 18:32 sb4 07/23 17:52 Order name: CT Abd/Pelvis - IV Contrast Only; Complete Time: 21:41 sb4 07/23 17:52 Order name: IV Saline Lock; Complete Time: 19:07 sb4 07/23 17:52 Order name: Labs collected and sent; Complete Time: 19:07 sb4 Administered Medications: 21:02 Drug: Ondansetron IVP 4 mg IVP once; over 2 minutes Route: IVP; Site: right forearm; jb4 21:47 Follow up: Response: No adverse reaction; Marked relief of symptoms jb4 Disposition: 21:42 I agree with the assessment and plan of care. I reviewed the patient's care provided by ec2 Advanced Practice Provider \T\ agree w/ the diagnosis \T\ care plan. I personally saw the pt \T\ performed a substantive portion of the visit, incldng all aspects of the (History/Exam/Medical Decision Making). Disposition Summary: 07/23/24 21:42 Discharge Ordered Notes: Location: Home ec2 Condition: Stable ec2 Diagnosis - Constipation, unspecified ec2 - Abdominal distension (gaseous) ec2 Followup: ec2 - With: Private Physician - When: - Reason: Re-evaluation by your physician Discharge Instructions: - Discharge Summary Sheet ec2 - Constipation, Adult, [id number] ec2 Forms: - Medication Reconciliation Form ec2 - Antibiotic Education ec2 - Prescription Opioid Use ec2 - Patient Portal Instructions ec2 - Leadership Thank You Letter ec2 Prescriptions: - Lactulose 10 gram/15 mL Oral Solution - take 30 milliliters ORAL route once daily; 300 milliliter; Refills: 0, Product ec2 Selection Permitted Signatures: Dispatcher [employer] EDAnil Padilla RN RN jb4 Shanthi Valdez PA-C PANakul [email or web address] Loren Ortiz RN RN cm10 Kalpesh Jacobson MD MD ec2 Corrections: (The following items were deleted from the chart) 17:52 17:52 Abdomen Pelvis W Con+CT.RAD.BRZ ordered. EDMS EDMS
[2024-07-24 17:09] VITALS: BP 120/65; TEMP 96.8; O2SAT 86
== END 2024-07-23 21:54 | disposition home or self-care (01) ==
LOC: ER 17:19
DX: K59.00 Constipation, unspecified (principal)
CPT/HCPCS: 85025; 81001; 36415; 81025; 83690; 80053; 74177; 96374; 99284; Q9967; J2405

== ENCOUNTER 2024-09-03 12:22 | Emergency (ER) | payer OTHER ==
[2024-09-03] MEDS ORDERED: NA CHLORIDE 0.9% 1,000 ML ONE ×2 (13:48→16:31)
[2024-09-03] MEDS ORDERED: ONDANSETRON 4 MG/2 ML VIAL ONE (13:48)
[2024-09-03 13:53] LABS: Specific Gravity 1.027 (1.005-1.030); Sqamous Epithelial <5 /HPF (None Seen); Urine Bacteria <20 /HPF (<20); Urine Bilirubin NEGATIVE (Negative); Urine Blood Negative (Negative); Urine Clarity Clear (Clear); Urine Color Colorless (Yellow); Urine Culture Reflex Order NOT NEEDED; Urine Glucose 4+ (Over) (Negative); Urine Ketones NEGATIVE (Negative); Urine Microscopic Reflex YN ORDER UMIC; Urine Mucus Slight /HPF (None Seen); Urine Nitrite NEGATIVE (Negative); Urine Protein TRACE (Negative); Urine RBC None Seen /HPF (None Seen); Urine Urobilinogen Normal (Normal); Urine WBC <5 /HPF (<5); Urine pH 5.5 (5.0-7.0)
[2024-09-03 14:19] LABS: Absolute Basophils 0.1 K/uL (0-0.5); Absolute Eosinophils 0.2 K/uL (0-0.5); Absolute Lymphocytes (CBC) 2.6 K/uL (0.7-4.9)
[2024-09-03 14:34] LABS: Absolute Monocytes 0.4 K/uL (0.1-1.3); Absolute Neutrophil 3.2 K/uL (1.8-8.0); Basophils % 1.1 % (0-1.3); Hematocrit 39.2 % (36.0-45.0); Hemoglobin 13.9 g/dL (12.0-15.0); Lymphocytes % 40.4 % (15.3-44.8); MCH 28.9 pg (27.0-35.0); MCHC 35.5 g/dL (32.0-36.0); MCV 81.5 fL (80-100); MPV 7.7 fL (7.6-11.3); Monocytes % 6.4 % (3.3-12.3); Neutrophils % 49.1 % (41.7-73.7); Nucleated Red Blood Cells % 0.6 % (0-0); Platelets 308 thou/uL (152-406); RBC Red Blood Cell Count 4.81 M/uL (3.86-4.86); Red Cell Distribution Width 14.6 % (12.1-15.2)
--- NOTE | 2024-09-03 14:46 | RAD REPORT ---
EXAMINATION: CT ABDOMEN AND PELVIS WITH CONTRAST CLINICAL INDICATION: Female, 44 years old.ABD PAIN TECHNIQUE: CT abdomen and pelvis was performed, after the administration of IV [facility] Axial, sagittal and coronal reconstructions were obtained. One or more of the following dose reduction techniques were used: Automated exposure control, adjustment of the mA and/o r kV according to patient size, and/or iterative reconstruction. Unless otherwise specified, incidental findings do not require dedicated imaging follow-up. [id number]. COMPARISON: 07/23/2024 FINDINGS: LOWER CHEST: No acute process identified.No significant pericardial effusion. Mild circumferential th ickening of the distal esophagus which could reflect esophagitis. UPPER GI: No significant abnormality. LIVER: Hepatomegaly with steatosis. GALLBLADDER/BILE DUCTS: Cholecystectomy. No significant biliary ductal dilatation.? PANCREAS: No mass, ductal dilation, or balaji-pancreatic fluid. SPLEEN: Unremarkable. ADRENALS: No adrenal masses. KIDNEYS AND URETERS: No hydronephrosis.No suspicious renal mass.2 mm stone in the upper pole right ki dney. ABDOMINAL AORTA AND OTHER VESSELS: Normal caliber aorta and IVC. PERITONEUM: No abnormal free fluid. No free air. LYMPH NODES: No pathologic lymphadenopathy. ABDOMINAL WALL: Unremarkable SMALL BOWEL/COLON: Small bowel has normal course and caliber. No colonic wall thickening or pericolon ic inflammatory changes. URINARY BLADDER: Bladder stimulator. REPRODUCTIVE ORGANS: No pathologic process. MUSCULOSKELETAL: No acute or suspicious osseous abnormality. ADDITIONAL FINDINGS: None. IMPRESSION: No acute or significant abnormalities seen in the abdomen or pelvis. No significant change from prior .
[2024-09-03] MEDS ORDERED: droPERidol 5 MG/2 ML VIAL ONE (16:31)
[2024-09-03] MEDS ORDERED: DIPHENHYDRAMINE 50 MG/ML VIAL ONE (16:31)
[2024-09-03 17:01] LABS: Albumin 3.4 g/dL (3.4-5.0); Albumin/Globulin Ratio 0.7 (1.1-1.8); Anion Gap 14.2 mEq/L (5.0-15.0); BETA HYDROXYBUTYRATE 0.31 mmol/L (0.02-0.27); Bilirubin Total 0.3 mg/dL (0.2-1.0); Globulin 4.6 g/dL (2.3-3.5); Potassium 4.2 mEq/L (3.5-5.1)
--- NOTE | 2024-09-03 17:22 | ER ---
Nurse's Notes [facility] Name: Valentina Franco Age: 44 yrs Sex: Female : 1980 Arrival Date: 09/03/2024 Time: 12:22 Bed 12 Private MD: Diagnosis: Hyperglycemia, unspecified Presentation: 09/03 13:12 Chief complaint: Patient states: she woke up this morning with high blood sugar, and ap3 she went to her dr and it was still running high after she took her medication. patient is also complaining of stomach pain, nausea and feeling like her heart is racing. Coronavirus screen: At this time, the client does not indicate any symptoms associated with coronavirus-19. Ebola Screen: No symptoms or risks identified at this time. Initial Sepsis Screen: Does the patient meet any 2 criteria? HR > 90 bpm. No. Patient's initial sepsis screen is negative. Does the patient have a suspected source of infection? No. Patient's initial sepsis screen is negative. Risk Assessment: Do you want to hurt yourself or someone else? Patient reports no desire to harm self or others. Onset of symptoms was September 03, 2024. 13:12 Method Of Arrival: Ambulatory ap3 13:12 Acuity: CYNTHIA 2 ap3 Triage Assessment: 13:14 General: Appears uncomfortable, Behavior is calm, cooperative, appropriate for age. ap3 Pain: Complains of pain in abdomen Pain currently is 8 out of 10 on a pain scale. Neuro: Level of Consciousness is awake, alert, obeys commands, Oriented to person, place, time, situation, Appropriate for age. Cardiovascular: Patient's skin is warm and dry. Respiratory: Airway is patent Respiratory effort is even, unlabored, Respiratory pattern is regular, symmetrical. GI: Reports lower abdominal pain, upper abdominal pain, nausea. 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 - Infectious Disease History:: Denies. - Social history:: Smoking status: Patient denies any tobacco usage or history of. Screenin:15 [facility] ED Fall Risk Assessment (Adult) History of falling in the last 3 months, ap3 including since admission No falls in past 3 months (0 pts) Confusion or Disorientation No (0 pts) Intoxicated or Sedated No (0 pts) Impaired Gait No (0 pts) Mobility Assist Device Used No (0 pt) Altered Elimination No (0 pt) Score/Fall Risk Level 0 - 2 = Low Risk Oriented to surroundings, Maintained a safe environment, Educated pt \T\ family on fall prevention, incl call for assistance when getting out of bed, Assessed \T\ reinforced patient's understanding of fall precautions, Hourly rounding (assess needs \T\ fall precautionary measures) done, Used ambulatory aids as needed (educated on \T\ assisted with). Abuse screen: Denies threats or abuse. Nutritional screening: No deficits noted. Tuberculosis screening: No symptoms or risk factors identified. Assessment: 13:59 General: Appears in no apparent distress. comfortable, well groomed, well developed, kc6 Behavior is calm, cooperative, appropriate for age. Pain: Denies pain. Neuro: Level of Consciousness is awake, alert, obeys commands, Oriented to person, place, time, situation, Appropriate for age Reports blurred vision. Cardiovascular: Denies chest pain, palpitations, Heart tones S1 S2 present Capillary refill < 3 seconds Rhythm is sinus tachycardia. Respiratory: Airway is patent Trachea midline Respiratory effort is even, unlabored, Respiratory pattern is regular, symmetrical. GI: Abdomen is round non-distended, Bowel sounds present X 4 quads. Abd is soft and non tender X 4 quads. Reports nausea, Patient currently denies abdominal pain, diarrhea, vomiting. : No signs and/or symptoms were reported regarding the genitourinary system. EENT: No signs and/or symptoms were reported regarding the EENT system. Derm: No signs and/or symptoms reported regarding the dermatologic system. Skin is intact, is healthy with good turgor, Skin is pink, warm \T\ dry. Musculoskeletal: No signs and/or symptoms reported regarding the musculoskeletal system. Circulation, motion, and sensation intact. Range of motion: limited in all extremities. 14:59 Reassessment: Patient appears in no apparent distress at this time. No changes from kc6 previously documented assessment. Patient and/or family updated on plan of care and expected duration. Pain level reassessed. Patient is alert, oriented x 3, equal unlabored respirations, skin warm/dry/pink. 15:59 Reassessment: Patient appears in no apparent distress at this time. No changes from kb3 previously documented assessment. Patient and/or family updated on plan of care and expected duration. Pain level reassessed. Patient is alert, oriented x 3, equal unlabored respirations, skin warm/dry/pink. 16:59 Reassessment: Patient appears in no apparent distress at this time. No changes from kb3 previously documented assessment. Patient and/or family updated on plan of care and expected duration. Pain level reassessed. Patient is alert, oriented x 3, equal unlabored respirations, skin warm/dry/pink. 17:36 Reassessment: Patient appears in no apparent distress at this time. No changes from kb3 previously documented assessment. Patient and/or family updated on plan of care and expected duration. Pain level reassessed. Patient is alert, oriented x 3, equal unlabored respirations, skin warm/dry/pink. d/c pending completion of IV fluids' Patient states feeling better. Patient states symptoms have improved. Vital Signs: 13:12 BP 150 / 87; Pulse 124; Resp 19; Temp 98.8; Pulse Ox 96% on R/A; Weight 100.24 kg; ap3 Height 5 ft. 4 in. ; Pain 8/10; 13:59 BP 107 / 67; Pulse 120; Resp 18 S; Pulse Ox 99% on R/A; kc6 14:12 Pulse 114; kc6 15:12 BP 109 / 65; Pulse 111; Resp 16 S; Pulse Ox 96% on R/A; kc6 17:36 BP 110 / 60; Pulse 97; Resp 18 S; Pulse Ox 95% on R/A; kb3 13:12 Body Mass Index 37.93 (100.24 kg, 162.56 cm) ap3 13:12 Pain Scale: Adult ap3 ED Course: 12:25 Patient arrived in ED. al6 12:33 Kalpesh Jacobson MD is Attending Physician. ec2 13:13 Triage completed. ap3 13:15 Arm band placed on left wrist. ap3 13:22 EKG done, by ED staff, reviewed by Kalpesh Jacobson MD. ap3 13:41 CBC with Diff Sent. bc6 13:41 CMP Sent. bc6 13:41 Lipase Sent. bc6 13:41 Test, Urine Sent. bc6 13:41 Urinalysis w/ reflexes Sent. bc6 13:41 Initial lab(s) drawn, by me, sent to lab. Urine collected: clean catch specimen, clear. bc6 Inserted saline lock: 20 gauge in left antecubital area, using aseptic technique. Blood collected. Flushed with 10 mL NS. 13:45 Ariana Pritchett, RN is Primary Nurse. kc6 13:59 Patient has correct armband on for positive identification. Bed in low position. Call kc light in reach. Side rails up X 1. Pulse ox on. NIBP on. Door closed. Noise minimized. Lights dimmed. Warm blanket given. Pillow given. Verbal reassurance given. 13:59 Patient maintains SpO2 saturation greater than 95% on room air. kc6 14:[address] via wheelchair. kc6 14:12 Diet: Patient given water. Tolerated well. kc6 14:20 CT Abd/Pelvis - IV Contrast Only In Process Unspecified. EDMS 17:56 No provider procedures requiring assistance completed. IV discontinued, intact, kc6 bleeding controlled, No redness/swelling at site. Pressure dressing applied. Administered Medications: 13:58 Drug: NS 0.9% IV 1000 ml IV at 1 bolus Per protocol; to be given as a bolus over 60 kc6 minutes Route: IV; Rate: 1 bolus; Site: left antecubital; 16:39 Follow up: Response: No adverse reaction; IV Status: Completed infusion; IV Intake: kc6 1000ml 13:59 Drug: Ondansetron IVP 4 mg IVP once; over 2 minutes Route: IVP; Site: left antecubital; kc6 15:12 Follow up: Response: No adverse reaction; Nausea unchanged kc6 16:39 Drug: Droperidol IVP 1.25 mg IVP once Route: IVP; Site: left antecubital; kc6 17:37 Follow up: Response: No adverse reaction; Nausea is decreased kb3 16:39 Drug: diphenhydrAMINE IVP 25 mg IVP once Route: IVP; Site: left antecubital; kc6 17:36 Follow up: Response: No adverse reaction kb3 16:39 Drug: NS 0.9% IV 1000 ml IV at 1000 ml once; to be given as a bolus over 60 minutes kc6 Route: IV; Rate: 1000 ml; Site: left antecubital; 17:54 Follow up: Response: No adverse reaction; IV Status: Completed infusion; IV Intake: kc6 1000ml Medication: 17:56 VIS not applicable for this client. kc6 Point of Care Testing: Blood Glucose: 13:13 Blood Glucose: High (>450 mg/dL); ap3 Ranges: Intake: 16:39 IV: 1000ml; Total: 1000ml. kc6 17:54 IV: 1000ml; Total: 2000ml. kc6 Outcome: 17:22 Discharge ordered by . ec2 17:56 Discharged to home ambulatory, kc6 17:56 Condition: improved 17:56 Discharge instructions given to patient, Instructed on discharge instructions, follow up and referral plans. Demonstrated understanding of instructions, follow-up care, 17:56 Patient left the ED. kc6 Signatures: Dispatcher [employer] EDMS Ashley Pace RN RN ap3 Ariana Pritchett RN RN kc6 Betty Mak RN RN kb3 Michaela Black 6 Kalpesh Jacobson MD MD ec2 Toshia Stearns Corrections: (The following items were deleted from the chart) 13:14 13:14 PSHx: Cholecystectomy; ap3 ap3 13:14 13:14 PSHx: section; ap3 ap3 13:14 13:14 PSHx: foot surgery; ap3 ap3 13:14 13:14 PSHx: Tonsillectomy; ap3 ap3 13:14 13:14 PSHx: Heart ablation; ap3 ap3 13:14 13:14 PSHx: Ligation of fallopian tube; ap3 ap3 13:14 13:14 PSHx: BBL; ap3 ap3 13:14 13:14 PSHx: LIPOSUCTION TO CHIN; ap3 ap3 13:14 13:14 PSHx: ablation; ap3 ap3 14:05 13:41 BETA HYDROXYBUTYRATE+C.LAB.BRZ drawn and sent. [facility] EDNM 17:37 17:36 Reassessment: Patient appears in no apparent distress at this time. No changes kb3 from previously documented assessment. Patient and/or family updated on plan of care and expected duration. Pain level reassessed. Patient is alert, oriented x 3, equal unlabored respirations, skin warm/dry/pink. Patient states feeling better. Patient states symptoms have improved. kb3
--- NOTE | 2024-09-03 17:23 | EDPHYS ---
Physician Documentation [facility] Name: Valentina Franco Age: 44 yrs Sex: Female : 1980 Arrival Date: 09/03/2024 Time: 12:22 Bed 12 Private MD: ED Physician Kalpesh Jacobson HPI: 09/03 13:47 This 44 yrs old Female presents to ER via Ambulatory with complaints of High ec2 Blood Sugar, Blurred Vision. 13:47 Patient arrives today for evaluation of elevated blood sugar. Patient with history of ec2 diabetes, poorly controlled, states that she takes regular medications every day, reports increased urinary frequency. Denies any cough or cold symptoms. Reports generalized abdominal pain as well.. 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 - Infectious Disease History:: Denies. - Social history:: Smoking status: Patient denies any tobacco usage or history of. ROS: 17:22 Constitutional: as per hpi ec2 Exam: 13:48 Constitutional: GEN: NAD Head: atraumatic Eyes: EOMI Ears: External ears are ec2 normal. CV: Tachycardia LUNGS: no respiratory distress ABD: non-distended, soft, not guarding SKIN: no evidence of rashes MSK: no evidence of trauma Vital Signs: 13:12 BP 150 / 87; Pulse 124; Resp 19; Temp 98.8; Pulse Ox 96% on R/A; Weight 100.24 kg; ap3 Height 5 ft. 4 in. ; Pain 8/10; 13:59 BP 107 / 67; Pulse 120; Resp 18 S; Pulse Ox 99% on R/A; kc6 14:12 Pulse 114; kc6 15:12 BP 109 / 65; Pulse 111; Resp 16 S; Pulse Ox 96% on R/A; kc6 17:36 BP 110 / 60; Pulse 97; Resp 18 S; Pulse Ox 95% on R/A; kb3 13:12 Body Mass Index 37.93 (100.24 kg, 162.56 cm) ap3 13:12 Pain Scale: Adult ap3 MDM: 13:00 Medical Screening Exam initiated ec2 13:48 Data reviewed: vital signs, nurses notes. ED course: Patient arrives today for ec2 evaluation of elevated blood sugar. Examination yields high blood sugar readings on initial glucometer check. Will obtain lab work, CT imaging.. 14:05 ED course: EKG independently reviewed and interpreted by me, shows sinus tachycardia, ec2 rate 123, no acute ST segment elevations, intervals are nonactionable, right bundle branch block noted.. 17:12 ED course: CT abdomen pelvis negative. testing negative. CBC reassuring. ec2 Urine is noninfectious appearing. No ketones present in the urine. BHB minimally elevated at 0.31. Lipase minimally elevated at 89. Metabolic profile shows hyperglycemia 464, renal dysfunction with creatinine 1.39 GFR 48. Will continue with second liter of crystalloid and have patient follow-up PCP regarding her diabetes. 17:21 ED course: On reassessment patient with improvement in symptoms. Patient with ec2 hyperglycemia, no ketones present in the urine, no anion gap, patient is not in DKA. Will finish second liter of fluid and discharged home. Return precautions given.. 09/03 13:10 Order name: CBC with Diff; Complete Time: 14:42 ec2 09/03 13:10 Order name: CMP; Complete Time: 17:11 ec2 09/03 13:10 Order name: Lipase; Complete Time: 17:11 ec2 09/03 13:10 Order name: Test, Urine; Complete Time: 13:54 ec2 09/03 13:10 Order name: Urinalysis w/ reflexes; Complete Time: 13:54 ec2 09/03 13:19 Order name: Glucose, Ancillary Testing; Complete Time: 13:54 EDMS 09/03 14:06 Order name: BETA HYDROXYBUTYRATE; Complete Time: 17:11 EDMS 09/03 13:10 Order name: CT Abd/Pelvis - IV Contrast Only; Complete Time: 14:47 ec2 09/03 13:10 Order name: IV Saline Lock; Complete Time: 13:41 ec2 09/03 13:10 Order name: Labs collected and sent; Complete Time: 13:41 ec2 09/03 14:06 Order name: Labs - recollect needed: recollect light green top; Complete Time: 14:12 bd Administered Medications: 13:58 Drug: NS 0.9% IV 1000 ml IV at 1 bolus Per protocol; to be given as a bolus over 60 kc6 minutes Route: IV; Rate: 1 bolus; Site: left antecubital; 16:39 Follow up: Response: No adverse reaction; IV Status: Completed infusion; IV Intake: kc6 1000ml 13:59 Drug: Ondansetron IVP 4 mg IVP once; over 2 minutes Route: IVP; Site: left antecubital; kc6 15:12 Follow up: Response: No adverse reaction; Nausea unchanged kc6 16:39 Drug: Droperidol IVP 1.25 mg IVP once Route: IVP; Site: left antecubital; kc6 17:37 Follow up: Response: No adverse reaction; Nausea is decreased kb3 16:39 Drug: diphenhydrAMINE IVP 25 mg IVP once Route: IVP; Site: left antecubital; kc6 17:36 Follow up: Response: No adverse reaction kb3 16:39 Drug: NS 0.9% IV 1000 ml IV at 1000 ml once; to be given as a bolus over 60 minutes kc6 Route: IV; Rate: 1000 ml; Site: left antecubital; 17:54 Follow up: Response: No adverse reaction; IV Status: Completed infusion; IV Intake: kc6 1000ml Point of Care Testing: Blood Glucose: 13:13 Blood Glucose: High (>450 mg/dL); ap3 Ranges: Critical Glucose Levels:Adult <50 mg/dl or >400 mg/dl <40 mg/dl or >180 mg/dl Disposition Summary: 09/03/24 17:22 Discharge Ordered Notes: Location: Home ec2 Condition: Stable ec2 Diagnosis - Hyperglycemia, unspecified ec2 Followup: ec2 - With: Private Physician - When: - Reason: Re-evaluation by your physician Discharge Instructions: - Discharge Summary Sheet ec2 - Hyperglycemia, [id number] ec2 Forms: - School release form kc6 - Work release form kc6 - Medication Reconciliation Form ec2 - Antibiotic Education ec2 - Prescription Opioid Use ec2 - Patient Portal Instructions ec2 - Leadership Thank You Letter ec2 Signatures: Dispatcher [employer] EDAlbertina Pitts Amanda RN RN ap3 Ariana Pritchett RN RN kc6 Kalpesh Jacobson MD MD ec2 Betty Mak RN kb3 Corrections: (The following items were deleted from the chart) 13:14 13:14 PSHx: Cholecystectomy; ap3 ap3 13:14 13:14 PSHx: section; ap3 ap3 13:14 13:14 PSHx: foot surgery; ap3 ap3 13:14 13:14 PSHx: Tonsillectomy; ap3 ap3 13:14 13:14 PSHx: Heart ablation; ap3 ap3 13:14 13:14 PSHx: Ligation of fallopian tube; ap3 ap3 13:14 13:14 PSHx: BBL; ap3 ap3 13:14 13:14 PSHx: LIPOSUCTION TO CHIN; ap3 ap3 13:14 13:14 PSHx: ablation; ap3 ap3 14:05 13:35 BETA HYDROXYBUTYRATE+C.LAB.BRZ ordered. EDMS EDMS
[2024-09-03 18:22] VITALS: TEMP 98.8
[2024-09-03 18:26] VITALS: BP 110/60; O2SAT 95
== END 2024-09-03 17:56 | disposition home or self-care (01) ==
LOC: ER 12:22
DX: E11.65 Type 2 diabetes mellitus with hyperglycemia (principal)
CPT/HCPCS: 96361; 93005; 85025; 81001; 36415; 81025; 82947; 83690; 80053; 82010; 74177; 96375; 96374; 99285; Q9967; J1200; J2405; J1790; J7030 ×2

== ENCOUNTER 2024-09-10 14:00 | Inpatient (IN) | payer OTHER ==
[2024-09-10] MEDS ORDERED: NA CHLORIDE 0.9% 1,000 ML ONE ×3 (14:50→20:42)
--- NOTE | 2024-09-10 15:06 | RAD REPORT ---
EXAM: Chest Single View HISTORY: 44 years Female CHEST PAIN COMPARISON: 07/10/2024 FINDINGS: LUNGS/PLEURA: The lungs are clear. No pleural effusions or pneumothorax. No pulmonary edema. CARDIAC/MEDIASTINUM: The cardiac silhouette is within normal limits. UPPER ABDOMEN: No significant abnormality. BONES: No acute abnormality. LINES/TUBES/OTHER: N/A IMPRESSION: No evidence of acute cardiopulmonary disease.
[2024-09-10 15:24] LABS: Absolute Basophils 0.1 K/uL (0-0.5); Absolute Eosinophils 0.1 K/uL (0-0.5); Absolute Lymphocytes (CBC) 3.6 K/uL (0.7-4.9); Absolute Monocytes 0.6 K/uL (0.1-1.3); Absolute Neutrophil 4.8 K/uL (1.8-8.0); Basophils % 1.5 % (0-1.3); Eosinophils % 0.9 % (0-4.4); Hematocrit 36.5 % (36.0-45.0); Hemoglobin 14.6 g/dL (12.0-15.0); Lymphocytes % 38.9 % (15.3-44.8); MPV 7.9 fL (7.6-11.3); Monocytes % 6.6 % (3.3-12.3); Neutrophils % 52.1 % (41.7-73.7); Nucleated Red Blood Cells % 0.3 % (0-0); Platelets 316 thou/uL (152-406); RBC Red Blood Cell Count 4.34 M/uL (3.86-4.86); Red Cell Distribution Width 14.8 % (12.1-15.2)
[2024-09-10 15:30] LABS: MCH 33.6 pg (27.0-35.0)
[2024-09-10 15:32] LABS: ALT/SGPT 41 U/L (13-56); Albumin 3.4 g/dL (3.4-5.0); Albumin/Globulin Ratio 0.8 (1.1-1.8); Alkaline Phosphatase 67 U/L (45-117); Anion Gap 13.3 mEq/L (5.0-15.0); BETA HYDROXYBUTYRATE 0.41 mmol/L (0.02-0.27); BUN Blood Urea Nitrogen 27 mg/dL (7-18); Bicarbonate 23 mEq/L (21-32); Bilirubin Total 0.3 mg/dL (0.2-1.0); Globulin 4.2 g/dL (2.3-3.5); Glomerular Filtration Rate 46 ml/min (=/>90); Lipase 411 U/L (13-75); Phosphorus 4.6 mg/dL (2.5-4.9); Protein, Total 7.6 g/dL (6.4-8.2); Sodium Level 130 mEq/L (136-145)
[2024-09-10 15:33] LABS: AST/SGOT 26 U/L (15-37); Bilirubin Direct < 0.2 mg/dL (0-0.2); Bilirubin Indirect, Calculated 0.1 mg/dL (0.2-0.8); Magnesium 1.9 mg/dL (1.6-2.4); Potassium 4.3 mEq/L (3.5-5.1); Troponin High Sensitivity < 3.0 pg/mL (<58.9)
[2024-09-10 15:34] LABS: Glucose Level 630 mg/dL (74-106)
[2024-09-10] MEDS ORDERED: DIPHENHYDRAMINE 50 MG/ML VIAL ONE ×2 (15:52→18:17)
[2024-09-10] MEDS ORDERED: PROMETHAZINE INJ 25 MG/ML AMP ONE (15:52)
[2024-09-10] MEDS ORDERED: INSULIN REGULAR (HUMAN) 100 UNIT/ML ONE ×3 (16:36→22:22)
--- NOTE | 2024-09-10 16:38 | RAD REPORT ---
EXAM: CT CHEST, ABDOMEN AND PELVIS WITH CONTRAST CLINICAL INDICATION: Female, 44 years abd pain;Chest pain TECHNIQUE: CT chest, abdomen and pelvis was performed, with IV contrast, as per department protocol. Axial, sagittal and coronal reconstructions were obtained. One or more of the following dose reduction techniques were used: Automated exposure control, adjustment of the mA and/or kV according to the patient size, and/or iterative reconstruction. Unless otherwise specified, incidental findings do not require dedicated imaging follow-up. [id number]. COMPARISON: 05/24/2024 FINDINGS: THORAX: LOWER NECK AND CHEST WALL: Visualized thyroid gland and soft tissues are normal. LUNGS AND AIRWAYS: Dependent atelectasis.No suspicious and/or stable pulmonary nodules. PLEURA: No pleural effusion. No pneumothorax. MEDIASTINUM AND LYMPH NODES: No mediastinal mass or fluid collection. Normal size mediastinal, hilar, and axillary lymph nodes. Mild distal esophageal thickening. THORACIC AORTA: No thoracic aortic aneurysm. PULMONARY ARTERIES: Caliber is within normal limits. No central pulmonary embolus identified. The seg mental and subsegmental pulmonary arteries cannot be adequately assessed due to motion and/or poor contrast opacifications. HEART: Normal heart size. No coronary calcifications.No significant pericardial effusion. ABDOMEN/PELVIS: UPPER GI: No significant abnormality. LIVER: Hepatomegaly with steatosis. GALLBLADDER/BILE DUCTS: Cholecystectomy. Mild extra-hepatic biliary ductal dilatation is likely relat ed to the post-cholecystectomy state. Consider correlating with LFT's.? PANCREAS: No mass, ductal dilation, or balaji-pancreatic fluid. SPLEEN: Unremarkable. ADRENALS: No adrenal masses. KIDNEYS AND URETERS: No hydronephrosis.No suspicious renal mass.Nonobstructing renal calculi. ABDOMINAL AORTA AND OTHER VESSELS: Mild atherosclerotic changes. PERITONEUM: No abnormal free fluid. No free air. LYMPH NODES: No pathologic lymphadenopathy. ABDOMINAL WALL: Unremarkable SMALL BOWEL/COLON: Small bowel has normal course and caliber. No colonic wall thickening or pericolon ic inflammatory changes.Normal appendix. Mild diverticulosis without diverticulitis. URINARY BLADDER: Underdistended but grossly unremarkable. REPRODUCTIVE ORGANS: No pathologic process. COMBINED: MUSCULOSKELETAL: No acute or suspicious osseous abnormality. ADDITIONAL FINDINGS: None. IMPRESSION: No acute findings within the chest, abdomen, or pelvis. Incidental findings as noted above,
[2024-09-10 17:31] LABS: HDL Cholesterol 15 mg/dL (40-60)
[2024-09-10 17:42] LABS: LDL, Direct 35 mg/dL (100-129)
[2024-09-10] MEDS ORDERED: FAMOTIDINE 20 MG/2 ML VIAL IV ONE (18:17)
[2024-09-10 18:20] LABS: Blood Gas Oxyhemoglobin 94.4 % (94-97); Blood O2 Saturation 97.8 % (92-98.5)
[2024-09-10 18:21] LABS: Blood Gas THB 12.6 g/dl (12-18)
--- NOTE | 2024-09-10 18:53 | ER ---
Nurse's Notes [facility] Name: Valentina Franco Age: 44 yrs Sex: Female : 1980 Arrival Date: 09/10/2024 Time: 14:00 Bed 23 Private MD: Diagnosis: Other acute pancreatitis without necrosis or infection;Type 2 diabetes mellitus with hyperglycemia;Chest pain, unspecified Presentation: 09/10 14:27 Chief complaint: Patient states: Chest pain that has been intermittent since Tuesday. Pt cm10 states that she saw her PCP on Tuesday and had her labs drawn and had low bicarb, elevated A1C and elevated triglycerides. Coronavirus screen: Client denies travel out of the [place] in the last 14 days. Ebola Screen: Patient denies travel to an Ebola-affected area in the 21 days before illness onset. Initial Sepsis Screen: Does the patient meet any 2 criteria? HR > 90 bpm. Does the patient have a suspected source of infection? No. Patient's initial sepsis screen is negative. Risk Assessment: Do you want to hurt yourself or someone else? Patient reports no desire to harm self or others. Onset of symptoms was September 10, 2024. 14:27 Method Of Arrival: Ambulatory 10 14:27 Acuity: CYNTHIA 2 cm10 POLITICAL SCIENCE CHAIR: 20:50 unknown bm8 Historical: - Allergies: 14:29 No Known Allergies; cm10 - PMHx: 14:29 Anxiety; Atrial fibrillation; CVA (yeast infection); Depression; diabetes mellitus; cm10 High Cholesterol; Hypertensive disorder; Kidney stone; Pancreatitis; Sepsis; UTI; yeast infection; - Immunization history:: Adult Immunizations up to date. - Infectious Disease History:: Denies. - Social history:: Smoking status: Patient denies any tobacco usage or history of. Screenin:01 Abuse screen: Denies threats or abuse. Denies injuries from another. Nutritional ss screening: No deficits noted. Tuberculosis screening: Never had TB. 18:45 [facility] ED Fall Risk Assessment (Adult) History of falling in the last 3 months, ss including since admission No falls in past 3 months (0 pts) Confusion or Disorientation No (0 pts) Intoxicated or Sedated No (0 pts) Impaired Gait No (0 pts) Mobility Assist Device Used No (0 pt) Altered Elimination No (0 pt) Score/Fall Risk Level 0 - 2 = Low Risk Oriented to surroundings, Maintained a safe environment. Assessment: 15:01 General: Appears in no apparent distress. comfortable, Behavior is calm, cooperative, ss Reports fatigue for >3 days, Denies fever, feeling ill, chills. Pain: Denies pain. Neuro: Level of Consciousness is awake, alert, obeys commands, Oriented to person, place, time, situation. Respiratory: Airway is patent Respiratory effort is even, unlabored, Respiratory pattern is regular, symmetrical. GI: Patient currently denies diarrhea, nausea, vomiting. : No signs and/or symptoms were reported regarding the genitourinary system. Denies burning with urination, urinary frequency. EENT: Oral mucosa is moist. 16:21 Reassessment: Pt premedicated for CT as ordered. PT states, "the contrast always makes ss me throw up really bad.". 18:20 Reassessment: Pt's face appears flushed. Pt states, "I feel hot and my chest feels a ss little heavy like it's difficult for me to breath." Lungs CTA. JILLIAN Suh notified. Benadryl and Pepcid given as ordered. Pt verbalizes understanding to push call light if symptoms worsen. 18:45 Reassessment: Patient appears in no apparent distress at this time. Reassessment: Pt is ss resting at this time Eyes closed. RR even and unlabored. Pt woke easily with verbal stimuli. Pt states, "I don't feel better, but I don't feel any worse.". Respiratory: Airway is patent Respiratory effort is even, unlabored, Respiratory pattern is regular, symmetrical, Breath sounds are clear bilaterally. 18:46 Reassessment: Awaiting disposition. ss 19:17 General: Appears in no apparent distress. comfortable, Behavior is calm, cooperative, bm8 appropriate for age, Reports fatigue for. Pain: Complains of pain in epigastric area and left upper quadrant Pain does not radiate. Pain currently is 6 out of 10 on a pain scale. Pain began suddenly. Neuro: No deficits noted. Level of Consciousness is awake, alert, obeys commands, Oriented to person, place, time, situation, Appropriate for age. Cardiovascular: Denies chest pain, Heart tones S1 S2 present Capillary refill < 3 seconds in bilateral fingers Patient's skin is warm and dry. Respiratory: Airway is patent Respiratory effort is even, unlabored, Respiratory pattern is regular, symmetrical, Breath sounds are clear bilaterally. GI: Reports upper abdominal pain, Pain is 6 out of 10 on a pain scale. : No signs and/or symptoms were reported regarding the genitourinary system. EENT: No signs and/or symptoms were reported regarding the EENT system. Derm: No signs and/or symptoms reported regarding the dermatologic system. Musculoskeletal: No signs and/or symptoms reported regarding the musculoskeletal system. Vital Signs: 14:27 BP 157 / 114; Pulse 100; Resp 18; Temp 98.2; Pulse Ox 95% on R/A; Weight 104.33 kg; cm10 Height 5 ft. 4 in. ; Pain 8/10; 15:02 BP 119 / 59; Pulse 99; Resp 17; Pulse Ox 98% on R/A; ss 18:21 BP 120 / 64; Pulse 95; Resp 20; Pulse Ox 98% on R/A; ss 19:17 BP 117 / 61; Pulse 93; Resp 18; Temp 98.3; Pulse Ox 94% ; Pain 6/10; bm8 14:27 Body Mass Index 39.48 (104.33 kg, 162.56 cm) cm10 14:27 Pain Scale: Adult cm10 19:17 Pain Scale: Adult bm8 [place] Coma Score: 19:17 Eye Response: spontaneous(4). Motor Response: obeys commands(6). Verbal Response: bm8 oriented(5). Total: 15. ED Course: 14:02 Patient arrived in ED. im 14:02 Shanthi Valdez PA-C is PHCP. sb4 14:02 Tiburcio Linder MD is Attending Physician. sb4 14:29 Triage completed. cm10 14:31 Arm band placed on right wrist. EKG completed in triage. Results shown to MD. cm10 14:31 EKG done, by ED staff, reviewed by Shanthi Valdez PA-C. cm10 14:37 Elvie Faustin, PETE is Primary Nurse. ss 14:45 Chest Single View XRAY In Process Unspecified. EDMS 14:45 Inserted saline lock: 20 gauge in left antecubital area, using aseptic technique. Blood ss collected. Flushed with 10 mL NS. 15:00 Patient maintains SpO2 saturation greater than 95% on room air. ss 15:01 Patient has correct armband on for positive identification. Bed in low position. ss program advisor on. Pulse ox on. NIBP on. 16:16 CT Chest, Abdomen, Pelvis - W/Contrast In Process Unspecified. EDMS 18:52 Prince Yousif MD is Hospitalizing Provider. sb4 19:17 Provided Education on: need for admission. bm8 19:17 No provider procedures requiring assistance completed. bm8 20:48 Patient admitted, IV remains in place. bm8 04 11:08 Notified ED physician of a critical lab result(s). Lac 2.2. ld1 Administered Medications: 0303 15:00 Drug: NS 0.9% IV 1000 ml IV at 1000 ml once; to be given as a bolus over 60 minutes ss Route: IV; Rate: 1000 ml; Site: left antecubital; 16:03 Follow up: IV Status: Completed infusion; IV Intake: 1000ml ss 16:02 Drug: Promethazine IVP 12.5 mg IVP once Route: IVP; Site: left antecubital; ss 16:15 Follow up: Response: No adverse reaction ss 16:03 Drug: NS 0.9% IV 1000 ml IV at 1 bolus Per protocol; to be given as a bolus over 60 ss minutes Route: IV; Rate: 1 bolus; Site: left antecubital; 20:49 Follow up: Response: No adverse reaction; IV Status: Completed infusion bm8 16:03 Drug: diphenhydrAMINE IVP 25 mg IVP once Route: IVP; Site: left antecubital; ss 16:15 Follow up: Response: No adverse reaction ss 16:37 Drug: Insulin Regular Human IVP 10 units IVP once {Co-Signature: [email or web address] (Anil Slater RN).} Route: IVP; Site: left antecubital; 19:13 Follow up: Response: No adverse reaction; Blood sugar is lowered ss 18:19 Drug: Famotidine IVP 20 mg IVP once; dilute with 10 mL 0.9% NaCl; give over 2 minutes ss Route: IVP; Site: left antecubital; 19:13 Follow up: Response: No adverse reaction ss 18:20 Drug: diphenhydrAMINE IVP 25 mg IVP once Route: IVP; Site: left antecubital; ss 19:13 Follow up: Response: No adverse reaction ss 19:14 Drug: Insulin Regular Human Sub-Q 10 units Sub-Q once {Co-Signature: [email or web address] (Anil Slater bm8 RN).} Route: Sub-Q; Site: abdomen; 20:49 Follow up: Response: No adverse reaction 8 19:17 Drug: morphine IVP or IV 4 mg IVP once over 4 mins Route: IVP; Infused Over: 4 mins; bm8 Site: left antecubital; 20:49 Follow up: Response: No adverse reaction 8 19:17 Drug: Ondansetron IVP 4 mg IVP once; over 2 minutes Route: IVP; Site: left antecubital; bm8 20:49 Follow up: Response: No adverse reaction 8 Medication: 15:01 VIS not applicable for this client. ss Point of Care Testing: Blood Glucose: 14:31 Blood Glucose: High (>450 mg/dL); cm10 Ranges: Intake: 16:03 IV: 1000ml; Total: 1000ml. ss Outcome: 18:52 Decision to Hospitalize by Provider. sb4 20:48 Admitted to ER Hold. Please see [facility] for further documentation. bm8 20:48 Condition: stable 20:48 Instructed on the need for admit, Demonstrated understanding of follow-up care, medications, 09/11 15:14 Patient left the ED. [email or web address] Signatures: Dispatcher [employer] Elvie Parisi RN RN Janell Mccabe RN RN [email or web address] Shanthi Valdez, PA-C PA-C sb4 Char Easley Clarissa RN RN cm10 Carter Baker RN RN bm8 Roxanna Cole RN RN kj2 Anil Slater RN [email or web address] Corrections: (The following items were deleted from the chart) 09/10 16:22 15:17 BP 119 / 59; Pulse 93bpm; Resp 26bpm; Pulse Ox 96% RA; ss ss
--- NOTE | 2024-09-10 18:53 | EDPHYS ---
Physician Documentation [facility] Name: Valentina Franco Age: 44 yrs Sex: Female : 1980 Arrival Date: 09/10/2024 Time: 14:00 Bed 23 Private MD: ED Physician Tiburcio Linder HPI: 09/10 14:32 This 44 yrs old Female presents to ER via Ambulatory with complaints of Chest sb4 Pain, Abnormal Lab Results. 14:58 Patient reports intermittent chest pain x 1 week. Additionally, she states that she has sb4 been feeling very fatigued, nauseous, and just not herself. She had routine blood work done 3 days ago and was called with the results today. Was told that her cholesterol, triglycerides, and A1c were all very elevated. Additionally, she was told that her chemistry was abnormal as well. Has a history of type 2 diabetes, is on several medications that she reports compliance with. 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 - Infectious Disease History:: Denies. - Social history:: Smoking status: Patient denies any tobacco usage or history of. ROS: 14:58 Respiratory: Negative for shortness of breath, cough, wheezing, and pleuritic chest sb4 pain, 14:58 Constitutional: Positive for fatigue, 14:58 Cardiovascular: Positive for chest pain, 14:58 Abdomen/GI: Positive for nausea, 14:58 All other systems are negative, 14:58 Endocrine: Positive for polydipsia, polyphagia, polyuria, sb4 Exam: 14:58 Head/Face: Normocephalic, atraumatic. Eyes: Extra-ocular motions intact. Periorbital sb4 areas with no swelling, redness, or edema. ENT: Mucous membranes moist. Cardiovascular: Regular rate and rhythm with a normal S1 and S2. Respiratory: No increased work of breathing, no retractions or nasal flaring. Abdomen/GI: Soft, non-tender, no distension. Skin: Warm, dry with normal turgor. Normal color with no rashes, no lesions, and no evidence of cellulitis. 14:58 Constitutional: The patient appears in no acute distress, alert, awake, obese, Vital Signs: 14:27 BP 157 / 114; Pulse 100; Resp 18; Temp 98.2; Pulse Ox 95% on R/A; Weight 104.33 kg; cm10 Height 5 ft. 4 in. ; Pain 8/10; 15:02 BP 119 / 59; Pulse 99; Resp 17; Pulse Ox 98% on R/A; ss 18:21 BP 120 / 64; Pulse 95; Resp 20; Pulse Ox 98% on R/A; ss 19:17 BP 117 / 61; Pulse 93; Resp 18; Temp 98.3; Pulse Ox 94% ; Pain 6/10; bm8 14:27 Body Mass Index 39.48 (104.33 kg, 162.56 cm) cm10 14:27 Pain Scale: Adult cm10 19:17 Pain Scale: Adult bm8 [place] Coma Score: 19:17 Eye Response: spontaneous(4). Motor Response: obeys commands(6). Verbal Response: bm8 oriented(5). Total: 15. MDM: 14:04 Medical Screening Exam initiated sb4 15:00 Data reviewed: vital signs, nurses notes. sb4 15:00 ED course: Labs from patient's "mychart" show a total cholesterol 621, triglycerides sb4 1346, A1c 14.2 and CO2 9. 19:09 Counseling: I had a detailed discussion with the patient and/or guardian regarding the sb4 historical points, exam findings, and any diagnostic results supporting the discharge/admit diagnosis, lab results, radiology results, the need for further work-up and treatment in the hospital. 09/10 14:31 Order name: BETA HYDROXYBUTYRATE; Complete Time: 15:34 sb4 09/10 14:31 Order name: Basic Metabolic Panel; Complete Time: 15:34 sb4 09/10 14:31 Order name: CBC with Diff; Complete Time: 15:32 sb4 09/10 14:31 Order name: Hepatic Function; Complete Time: 15:34 sb4 09/10 14:31 Order name: Lipase; Complete Time: 15:34 sb4 09/10 14:31 Order name: Magnesium; Complete Time: 15:34 sb4 09/10 14:31 Order name: Phosphorus; Complete Time: 15:34 sb4 09/10 14:31 Order name: Troponin High Sensitivity; Complete Time: 15:34 sb4 09/10 14:42 Order name: Glucose, Ancillary Testing; Complete Time: 14:52 EDMS 09/10 16:40 Order name: Lipid Profile; Complete Time: 17:47 sb4 09/10 17:19 Order name: ABG: VBG; Complete Time: 18:26 sb4 09/10 17:19 Order name: Troponin High Sensitivity; Complete Time: 18:19 sb4 09/10 17:24 Order name: Glucose, Ancillary Testing; Complete Time: 17:25 EDMS 09/10 17:33 Order name: LDL, Direct; Complete Time: 17:47 EDMS 09/10 19:20 Order name: Glucose, Ancillary Testing; Complete Time: 19:22 EDMS 09/10 19:42 Order name: Lactate w/ 2H reflex if indic.; Complete Time: 10:27 EDMS 09/10 19:42 Order name: Magnesium; Complete Time: 10:27 EDMS 09/10 19:42 Order name: Phosphorus; Complete Time: 10:27 EDMS 09/10 19:42 Order name: Protime (+INR); Complete Time: 10:27 EDMS 09/10 19:42 Order name: PTT, Activated Partial Thromb; Complete Time: 10:27 EDMS 09/10 19:42 Order name: Urinalysis w/ reflexes EDMS 09/10 19:42 Order name: Basic Metabolic Panel EDMS 09/10 19:42 Order name: Basic Metabolic Panel; Complete Time: 10:27 EDMS 09/10 19:42 Order name: CBC with Automated Diff EDMS 09/10 19:42 Order name: CBC with Automated Diff; Complete Time: 10:27 EDMS 09/10 22:30 Order name: Glucose, Ancillary Testing; Complete Time: 10:27 EDMS 09/10 22:52 Order name: Hemoglobin A1c; Complete Time: 10:27 EDMS 09/11 00:56 Order name: Ghost Lactate-NO COLLECT Timer; Complete Time: 10:27 EDMS 09/11 02:03 Order name: Lactate Sepsis 2 HR Follow-up; Complete Time: 10:27 EDMS 09/11 07:33 Order name: Glucose, Ancillary Testing; Complete Time: 10:27 EDMS 09/11 11:08 Order name: Lactate w/ 2H reflex if indic.; Complete Time: 13:02 EDMS 09/11 11:14 Order name: Triglycerides Level; Complete Time: 13:02 EDMS 09/11 11:24 Order name: Comprehensive Metabolic Panel; Complete Time: 13:02 EDMS 09/11 11:24 Order name: Magnesium; Complete Time: 13:02 EDMS 09/11 11:24 Order name: Lipase; Complete Time: 13:02 EDMS 09/11 11:46 Order name: Glucose, Ancillary Testing; Complete Time: 13:02 EDMS 09/11 13:08 Order name: Ghost Lactate-NO COLLECT Timer; Complete Time: 13:02 EDMS 09/10 14:31 Order name: Chest Single View XRAY; Complete Time: 15:09 4 09/10 15:35 Order name: CT Chest, Abdomen, Pelvis - W/Contrast; Complete Time: 16:39 sb4 09/10 14:31 Order name: Cardiac monitoring; Complete Time: 15:00 sb4 09/10 14:31 Order name: EKG - Nurse/Tech; Complete Time: 14:31 sb4 09/10 14:31 Order name: IV Saline Lock; Complete Time: 15:00 sb4 09/10 14:31 Order name: O2 Per Protocol; Complete Time: 15:00 sb4 09/10 14:31 Order name: O2 Sat Monitoring; Complete Time: 15:00 sb4 09/10 17:19 Order name: Accucheck; Complete Time: 17:25 sb4 EC:38 Rate is 98 beats/min. Rhythm is regular, Normal Sinus Rhythm with Right bundle branch sb4 block. QRS interval is normal at 134 msec. QT interval is normal at 408 msec. No Q waves. T waves are Normal. Clinical impression: No evidence of ischemia. Interpreted by me. Reviewed by me. Administered Medications: 15:00 Drug: NS 0.9% IV 1000 ml IV at 1000 ml once; to be given as a bolus over 60 minutes ss Route: IV; Rate: 1000 ml; Site: left antecubital; 16:03 Follow up: IV Status: Completed infusion; IV Intake: 1000ml ss 16:02 Drug: Promethazine IVP 12.5 mg IVP once Route: IVP; Site: left antecubital; ss 16:15 Follow up: Response: No adverse reaction ss 16:03 Drug: NS 0.9% IV 1000 ml IV at 1 bolus Per protocol; to be given as a bolus over 60 ss minutes Route: IV; Rate: 1 bolus; Site: left antecubital; 20:49 Follow up: Response: No adverse reaction; IV Status: Completed infusion bm8 16:03 Drug: diphenhydrAMINE IVP 25 mg IVP once Route: IVP; Site: left antecubital; ss 16:15 Follow up: Response: No adverse reaction ss 16:37 Drug: Insulin Regular Human IVP 10 units IVP once {Co-Signature: [email or web address] (Anil Slater ss RN).} Route: IVP; Site: left antecubital; 19:13 Follow up: Response: No adverse reaction; Blood sugar is lowered ss 18:19 Drug: Famotidine IVP 20 mg IVP once; dilute with 10 mL 0.9% NaCl; give over 2 minutes ss Route: IVP; Site: left antecubital; 19:13 Follow up: Response: No adverse reaction ss 18:20 Drug: diphenhydrAMINE IVP 25 mg IVP once Route: IVP; Site: left antecubital; ss 19:13 Follow up: Response: No adverse reaction ss 19:14 Drug: Insulin Regular Human Sub-Q 10 units Sub-Q once {Co-Signature: [email or web address] (Anil Slater bm8 RN).} Route: Sub-Q; Site: abdomen; 20:49 Follow up: Response: No adverse reaction bm8 19:17 Drug: morphine IVP or IV 4 mg IVP once over 4 mins Route: IVP; Infused Over: 4 mins; bm8 Site: left antecubital; 20:49 Follow up: Response: No adverse reaction bm8 19:17 Drug: Ondansetron IVP 4 mg IVP once; over 2 minutes Route: IVP; Site: left antecubital; bm8 20:49 Follow up: Response: No adverse reaction bm8 Point of Care Testing: Blood Glucose: 14:31 Blood Glucose: High (>450 mg/dL); cm10 Ranges: Critical Glucose Levels:Adult <50 mg/dl or >400 mg/dl <40 mg/dl or >180 mg/dl Disposition Summary: 09/10/24 18:52 Hospitalization Ordered Notes: Hospitalization Status: Inpatient Admission sb4 Provider: Prince Nica sb4 Condition: Fair sb4 Problem: new sb4 Symptoms: are unchanged sb4 Bed/Room Type: Standard sb4 Location: Telemetry/MedSurg (Inpatient)(09/11/24 14:00) ja1 Room Assignment: 403(09/11/24 14:00) ja1 Diagnosis - Other acute pancreatitis without necrosis or infection sb4 - Type 2 diabetes mellitus with hyperglycemia sb4 - Chest pain, unspecified sb4 Forms: - Medication Reconciliation Form sb4 - SBAR form sb4 - Leadership Thank You Letter sb4 Addendum: 09/14/2024 21:21 Co-signature as Attending Physician, Tiburcio Linder MD I reviewed the patient's care r n provided by the Advanced Practice Provider and agree with the diagnosis and treatment plan. Signatures: Dispatcher [employer] EDMS Tiburcio Linder MD MD rn Blanchard, Shelby, Barbara Thomas RN, RN RN cg Aguilar, Jose, RN RN ja1 Shanthi Valdez PA-C PANakul sb4 Loren Ortiz RN RN cm10 Carter Baker RN RN bm8 Anil Slater RN [email or web address] Corrections: (The following items were deleted from the chart) 03 14:31 14:31 BETA HYDROXYBUTYRATE+C.LAB.BRZ ordered. EDMS EDMS 14:31 14:31 BASIC METABOLIC PANEL+C.LAB.BRZ ordered. EDMS EDMS 14:31 14:31 CBC+H.LAB.BRZ ordered. EDMS EDMS 14:31 14:31 HEPATIC FUNCTION+C.LAB.BRZ ordered. EDMS EDMS 14:31 14:31 LIPASE+C.LAB.BRZ ordered. EDMS EDMS 14:31 14:31 MAGNESIUM+C.LAB.BRZ ordered. EDMS EDMS 14:31 14:31 PHOSPHORUS+C.LAB.BRZ ordered. EDMS EDMS 14:31 14:31 Troponin High Sensitivity+C.LAB.BRZ ordered. EDMS EDMS 14:31 14:31 Chest Single View+RAD.RAD.BRZ ordered. EDMS EDMS 15:00 14:58 Respiratory: Negative for shortness of breath, cough, wheezing, and pleuritic sb4 chest pain, sb4 16:41 16:41 LIPID PROFILE+C.LAB.BRZ ordered. EDMS EDMS 17:20 17:20 Troponin High Sensitivity+C.LAB.BRZ ordered. EDMS EDMS 19:56 18:52 Telemetry/MedSurg (Inpatient) sb4 19:56 [facility] 14:00 03/03 19:56 [facility] ER [facility] cg [facility] 09/11 14:00 0303 19:56 [facility]- [facility]
[2024-09-10] MEDS ORDERED: ONDANSETRON 4 MG/2 ML VIAL ONE ×2 (19:13→23:51)
[2024-09-10] MEDS ORDERED: MORPHINE 4 MG/ML SYR ONE (19:13)
--- NOTE | 2024-09-10 19:43 | P.HP ---
Certification for Inpatient Patient admitted to: Inpatient With expected LOS: >2 Midnights Practitioner: I am a practitioner with admitting privileges, knowledge of patient current condition, hospital course, and medical plan of care. Services: Services provided to patient in accordance with Admission requirements found in Title 42 Section 412.3 of the Code of Federal Regulations Patient History Date of Service: 09/10/24 Reason for admission: Abdominal pain History of Present Illness: Patient is a 44-year-old female with morbid obesity, hyperlipidemia and type 2 diabetes mellitus. She is sent from Dr. Buck's office for evaluation of abnormal labs patient had a blood glucose of roughly 600. Her lipase was well more than 400. Patient states she has been compliant with her insulin regimen which includes currently on Novolog and Basaglar, 104 units every evening. She states she breaks it up prior to administering two 50 units on each side of his abdomen. The site close appliance, her blood glucose has been severely elevated. She has been having lethargy, fatigue, blurry vision and paresthesia of both hands and feet. Upon admission, her blood glucose was more than 600. Allergies No Known Allergies Allergy (Verified 09/16/17 03:51) Home Medications: Metformin HCl 1,000 mg PO BID 09/16/17 Fenofibrate,Micronized [Fenofibrate] 1 tab PO DAILY 12/07/21 Insulin Aspart [Novolog Flexpen] 26 unit SQ TID 11/28/22 Buspirone HCl [Buspar*] 5 mg PO BID tab 02/22/24 Fish Oil/Dha/Epa [Fish Oil 1,200 mg Fish Oil] 2 each PO TID 06/24/24 Fluoxetine HCl [Prozac] 40 tab PO DAILY 06/24/24 Trazodone [Desyrel*] 150 mg PO BEDTIME 06/24/24 Dulaglutide [Trulicity] 0.75 mg SQ 07/10/24 Ezetimibe [Zetia] 10 mg PO DAILY 07/10/24 Fluoxetine HCl [Prozac] 40 mg PO 07/10/24 Gabapentin 300 mg PO DAILY 07/10/24 Glimepiride 4 mg PO DAILY 07/10/24 Insulin Glargine,Hum.rec.anlog [Basaglar Kwikpen U-100] 104 unit SQ BEDTIME 07/10/24 Metoprolol Succinate [Kapspargo Sprinkle] 25 mg PO DAILY 07/10/24 Rivaroxaban [Xarelto] 20 mg PO DAILY 07/10/24 - Past Medical/Surgical History Diabetic: Yes -: DIABETIC TYPE II -: CHOLESTEROL -: DEPRESSION -: Paroxysmal A-fib on Xarelto -: Unstable angina -: hernia repair -: heart ablation -: broke foot -: tonsillectomy -: KATTY -: X3 Psychosocial/ Personal History: Lives at home with daughters - Family History Mother -: Diabetes - Social History Alcohol use: No CD- Drugs: No Caffeine use: Yes Physical Examination - Physical Exam General: Acute distress (Lethargic), Obese HEENT: Atraumatic, Normocephalic Respiratory: Clear to auscultation bilaterally, Normal air movement Cardiovascular: No edema, Normal pulses, Regular rate/rhythm, Normal S1 S2 Neurological: Normal speech - Studies Laboratory Data (last 24 hrs) 09/10/24 09/10/24 09/10/24 14:47 14:47 14:47 WBC 9.30 Hgb 14.6 Hct 36.5 Plt Count 316 Sodium 130 L Potassium 4.3 BUN 27 H Creatinine 1.43 H Glucose 630 H* Phosphorus 4.6 Magnesium 1.9 Total Bilirubin 0.3 AST 26 ALT 41 Alkaline Phosphatase 67 Triglycerides 569 H Cholesterol 120 LDL Cholesterol Direct 35 L HDL Cholesterol 15 L Cholesterol/HDL Ratio 8.00 Lipase 411 H Assessment and Plan - Problems (Diagnosis) (1) Acute pancreatitis Current Visit: No Status: Acute Qualifiers: (2) HTN (hypertension) Current Visit: No Status: Acute (3) History of CVA (cerebrovascular accident) Current Visit: No Status: Acute (4) Hypertriglyceridemia Onset Date: 11/10/17 Current Visit: No Status: Acute (5) pancreatitis due to hypertriglyceridemia Onset Date: 11/10/17 Current Visit: No Status: Acute (6) Fatty infiltration of liver Current Visit: No Status: Chronic (7) Morbid obesity Current Visit: No Status: Chronic - Plan Assessment This is a 44-year-old female with a past medical history of obesity, type 2 diabetes mellitus and hyperlipidemia. She is being admitted here after routine outpatient blood work revealed normal values. She is severely hyperglycemic with blood glucose of more than 600. Lipase is more than 400 and her triglyceride is elevated as well. Symptomatically, she reports increased lethargy, blurry vision and paresthesia of both hands and feet. Her last A1c was 3 months ago and was more than 12. Acute pancreatitis Type 2 diabetes mellitus with severe hyperglycemia Hypertriglyceridemia Obesity Plan: Will admit inpatient with telemetry Aggressive volume repletion with pancreatitis Will break her insulin regimen to 15 units evening and 50 units in the morning Can resume her home dose of NovoLog tomorrow morning In the meantime, continue insulin sliding scale Repeat lipase tomorrow - Advance Directives Does patient have a Living Will: No Does patient have a Durable POA for Healthcare: No
[2024-09-10] MEDS ORDERED: D10W 125 ML IV PRN (19:46)
[2024-09-10] MEDS ORDERED: GLUCAGON 1 MG/VIAL IM PRN (19:46)
[2024-09-10] MEDS ORDERED: SODIUM CHLORIDE 0.9% 10ML INJ IV PRN (19:47)
[2024-09-10] MEDS: INSULIN GLARGINE 100 UNIT/ML SQ SCH (20:00)
[2024-09-10] MEDS: NA CHLORIDE 0.9% 1,000 ML IV SCH (20:40)
[2024-09-10] MEDS: PANTOPRAZOLE 40 MG INJ IVP SCH (20:40)
[2024-09-10] MEDS ORDERED: PANTOPRAZOLE 40 MG INJ ONE (20:42)
[2024-09-10] MEDS: INSULIN GLARGINE 100 UNIT/ML SQ ONE (21:40)
[2024-09-10] MEDS: INSULIN REGULAR (HUMAN) 100 UNIT/ML SQ SCH (22:23)
[2024-09-10 22:48] LABS: Phosphorus 5.1 mg/dL (2.5-4.9)
[2024-09-10 22:55] LABS: Magnesium 2.1 mg/dL (1.6-2.4)
[2024-09-10 23:39] LABS: PTT, Activated Partial Thromb ND SECONDS (24.3-36.9); Protime INR ND
[2024-09-10 23:40] LABS: PT Prothrombin Time ND SECONDS (10.0-13.0)
[2024-09-10] MEDS ORDERED: HYDROMORPHONE HCL 0.5 MG/0.5 ML INJ ONE (23:49)
[2024-09-10] MEDS: HYDROMORPHONE HCL 1 MG/ML INJ IV PRN (23:56)
[2024-09-10] MEDS: ONDANSETRON 4 MG/2 ML VIAL IV PRN (23:56)
[2024-09-11] MEDS ORDERED: NA CHLORIDE 0.9% 1,000 ML ONE (05:12)
[2024-09-11] MEDS ORDERED: ONDANSETRON 4 MG/2 ML VIAL ONE (05:21)
[2024-09-11] MEDS ORDERED: HYDROMORPHONE HCL 0.5 MG/0.5 ML INJ ONE ×2 (05:24→09:08)
[2024-09-11 06:02] LABS: Anion Gap 16.9 mEq/L (5.0-15.0); Potassium 3.9 mEq/L (3.5-5.1)
[2024-09-11 06:11] LABS: Nucleated Red Blood Cells % 0.2 % (0-0)
[2024-09-11 06:16] LABS: Hemoglobin 10.6 g/dL (12.0-15.0); RBC Red Blood Cell Count 3.56 M/uL (3.86-4.86)
[2024-09-11 06:17] LABS: Absolute Basophils 0.1 K/uL (0-0.5); Absolute Lymphocytes (CBC) 1.7 K/uL (0.7-4.9); Absolute Monocytes 0.4 K/uL (0.1-1.3); Absolute Neutrophil 3.1 K/uL (1.8-8.0); Basophils % 1.1 % (0-1.3); Eosinophils % 0.7 % (0-4.4); MCH 29.8 pg (27.0-35.0); MCHC 35.4 g/dL (32.0-36.0); MCV 84.2 fL (80-100); MPV 7.6 fL (7.6-11.3); Monocytes % 6.8 % (3.3-12.3); Neutrophils % 58.4 % (41.7-73.7); Platelets 215 thou/uL (152-406); Red Cell Distribution Width 14.3 % (12.1-15.2)
[2024-09-11] MEDS ORDERED: PANTOPRAZOLE 40 MG INJ ONE (07:29)
[2024-09-11] MEDS ORDERED: INSULIN REGULAR (HUMAN) 100 UNIT/ML ONE ×2 (07:30→12:09)
[2024-09-11] MEDS ORDERED: ENOXAPARIN 40 MG/0.4 ML SQ ONE (07:30)
[2024-09-11] MEDS: ENOXAPARIN 40 MG/0.4 ML SQ SCH (07:40)
[2024-09-11] MEDS ORDERED: INSULIN GLARGINE 100 UNIT/ML SQ ONE (08:35)
[2024-09-11] MEDS: gemfibroziL 600 MG TAB PO SCH (09:00)
[2024-09-11] MEDS: DOCOSAHEXANOIC AC/EPA 1000 MG PO SCH (09:00)
[2024-09-11] MEDS: HYDROMORPHONE HCL 0.5 MG/0.5 ML INJ IV PRN (09:11)
--- NOTE | 2024-09-11 09:15 | P.PN ---
Subjective Date of Service: 09/11/24 Patient is doing well with no new complaints. Patient's clinical symptoms are stable. Patient's lipase and triglycerides were elevated. Patient states she has been very compliant with her medications. Unfortunately she is not really doing much better. Will continue with strict blood sugar control and will monitor labs. Patient's lactic acid is elevated. Patient probably with underlying fatty liver disease. Will. Just medications at this time and patient will be admitted for inpatient hospitalization Review of Systems 10-point ROS is otherwise unremarkable Physical Examination - Vital Signs Temperature: 98 F Blood Pressure: 120/78 Pulse: 93 Respirations: 18 Pulse Ox (%): 94 - Physical Exam General: Alert, In no apparent distress HEENT: Atraumatic, PERRLA, EOMI Neck: Supple, JVD not distended Respiratory: Clear to auscultation bilaterally, Normal air movement Cardiovascular: Regular rate/rhythm, Normal S1 S2 Gastrointestinal: Normal bowel sounds, No tenderness Musculoskeletal: No tenderness Integumentary: No rashes Neurological: Normal speech, Normal tone, Normal affect Lymphatics: No axilla or inguinal lymphadenopathy - Studies Laboratory Data (last 24 hrs) 09/10/24 09/10/24 09/10/24 14:47 14:47 14:47 WBC 9.30 Hgb 14.6 Hct 36.5 Plt Count 316 Sodium 130 L Potassium 4.3 BUN 27 H Creatinine 1.43 H Glucose 630 H* Phosphorus 4.6 Magnesium 1.9 Total Bilirubin 0.3 AST 26 ALT 41 Alkaline Phosphatase 67 Triglycerides 569 H Cholesterol 120 LDL Cholesterol Direct 35 L HDL Cholesterol 15 L Cholesterol/HDL Ratio 8.00 Lipase 411 H Medications List Reviewed: Yes Assessment & Plan - Problems (Diagnosis) (1) Type 1 diabetes Current Visit: Yes Status: Acute (2) Diabetic ketoacidosis Current Visit: Yes Status: Acute (3) Acute pancreatitis Current Visit: No Status: Acute Qualifiers: (4) Hypertriglyceridemia Onset Date: 11/10/17 Current Visit: No Status: Acute (5) pancreatitis due to hypertriglyceridemia Onset Date: ~09/11/24 Current Visit: No Status: Acute (6) Fatty infiltration of liver Current Visit: No Status: Chronic (7) Morbid obesity Current Visit: No Status: Chronic - Plan 1. Acute pancreatitis secondary to hypertriglyceridemia; patient triglyceride for 400s. Patient is on Lopid and fish oil and will continue this. Recheck lipase and triglyceride levels. Continue with IV hydration at this time. Will start clear liquid diet as patient's pain is tolerable. 2. DKA; this is seems to be resolved. Patient's blood sugars are better controlled and acidosis has improved. Will repeat beta hydroxybutyrate and lactic acid levels. 3. Metabolic acidosis; this is compensated. Most likely related to lactic acidosis and ketosis. Continue with above management 4. Metabolic syndrome; strict blood pressure and blood sugar control 5. GI DVT prophylaxis Discharge Plan: Home Plan to discharge in: Greater than 2 days - Advance Directives Does patient have a Living Will: No Does patient have a Durable POA for Healthcare: No - Code Status/Comfort Care Code Status Assessed: Yes Code Status: Full Code Critical Care: No Time Spent Managing PTS Care (In Minutes): 45
[2024-09-11 11:20] LABS: Albumin/Globulin Ratio 0.8 (1.1-1.8); Anion Gap 14.2 mEq/L (5.0-15.0); Bilirubin Total 0.4 mg/dL (0.2-1.0); Globulin 3.9 g/dL (2.3-3.5); Magnesium 1.8 mg/dL (1.6-2.4); Protein, Total 6.9 g/dL (6.4-8.2)
[2024-09-11 11:23] LABS: Potassium 4.2 mEq/L (3.5-5.1)
--- NOTE | 2024-09-11 12:13 | EKG ---
Test Date: 2024-09-10 Test Time: 14:27:04 Postdoctoral Scientist: STONEY MEASUREMENT RESULTS: Intervals: Rate: 98 AL: 150 QRSD: 134 QT: 408 QTc: 520 [place]: P: 49 AL: 150 QRS: 102 T: 31 INTERPRETIVE STATEMENTS: Normal sinus rhythm Right bundle branch block Cannot rule out Inferior infarct, age undetermined Abnormal ECG Compared to ECG 09/03/2024 13:20:13 Sinus tachycardia no longer present Left posterior fascicular block no longer present Bifascicular block no longer present Myocardial infarct finding still present Electronically Signed On 09-11-24 12:10:57 SECOND CUTTER by David Navarro
[2024-09-11] MEDS ORDERED: ACETAMINOPHEN 500 MG TAB ONE (13:51)
[2024-09-11] MEDS: ACETAMINOPHEN 500 MG TAB PO PRN (13:52)
[2024-09-11] MEDS ORDERED: GLUCAGON 1 MG/VIAL IM PRN (15:16)
[2024-09-11] MEDS ORDERED: D50W 25 GM/50 ML SYRINGE IV PRN (15:16)
[2024-09-11] MEDS: D5 0.9 NS 1,000 ML IV SCH (16:20)
[2024-09-11] MEDS: INSULIN REGULAR, HUMAN 100 UNIT in NA CHLORIDE 0.9% 100 ML IV SCH (16:21)
[2024-09-11] MEDS: LORazepam 2 MG/ML VIAL IV ONE (17:58)
[2024-09-11] MEDS ORDERED: PROMETHAZINE 25 MG TABLET PO PRN (18:12)
[2024-09-11 18:46] LABS: Anion Gap 8.7 mEq/L (5.0-15.0); Potassium 3.7 mEq/L (3.5-5.1)
[2024-09-11] MEDS: TRAZODONE 150 MG TAB PO SCH (20:18)
[2024-09-12 01:27] LABS: Anion Gap 10.6 mEq/L (5.0-15.0)
[2024-09-12] MEDS: INSULIN REGULAR (HUMAN) 100 UNIT/ML ONE (01:27)
[2024-09-12] MEDS: NA CHLORIDE 0.9% 100 ML ONE (01:28)
[2024-09-12 01:32] LABS: Potassium 3.6 mEq/L (3.5-5.1)
[2024-09-12 06:19] LABS: ALT/SGPT 44 U/L (13-56); Albumin 2.5 g/dL (3.4-5.0); Albumin/Globulin Ratio 0.7 (1.1-1.8); Alkaline Phosphatase 42 U/L (45-117); Anion Gap 11.6 mEq/L (5.0-15.0); BUN Blood Urea Nitrogen 13 mg/dL (7-18); Bicarbonate 21 mEq/L (21-32); Bilirubin Total 0.3 mg/dL (0.2-1.0); Globulin 3.7 g/dL (2.3-3.5); Glomerular Filtration Rate 108 ml/min (=/>90); Glucose Level 160 mg/dL (74-106); Lipase 159 U/L (13-75); Protein, Total 6.2 g/dL (6.4-8.2); Sodium Level 138 mEq/L (136-145)
[2024-09-12 06:21] LABS: AST/SGOT 71 U/L (15-37); Magnesium 1.8 mg/dL (1.6-2.4); Potassium 3.6 mEq/L (3.5-5.1); Troponin High Sensitivity < 3.0 pg/mL (<58.9)
[2024-09-12 06:35] VITALS: BMI 39.7
[2024-09-12 06:45] LABS: Absolute Basophils 0.1 K/uL (0-0.5); Absolute Eosinophils 0.2 K/uL (0-0.5); Absolute Lymphocytes (CBC) 2.3 K/uL (0.7-4.9); Absolute Monocytes 0.5 K/uL (0.1-1.3); Absolute Neutrophil 1.6 K/uL (1.8-8.0); Basophils % 1.5 % (0-1.3); Eosinophils % 3.9 % (0-4.4); Lymphocytes % 49.7 % (15.3-44.8); MCH 29.2 pg (27.0-35.0); MCHC 35.3 g/dL (32.0-36.0); MCV 82.6 fL (80-100); MPV 8.6 fL (7.6-11.3); Neutrophils % 34.9 % (41.7-73.7); Nucleated Red Blood Cells % 0.6 % (0-0); RBC Red Blood Cell Count 3.75 M/uL (3.86-4.86); Red Cell Distribution Width 14.9 % (12.1-15.2)
[2024-09-12 06:55] LABS: Platelets 232 thou/uL (152-406)
--- NOTE | 2024-09-12 08:23 | P.PN ---
Date of Service: 09/12/24 Subjective Patient clinical symptoms improving. Triglycerides are improving. However, they remained over 3000. At this time, continue with insulin drip. Continue with aggressive IV hydration. Will downgrade once her triglycerides get close to one thousand. Physical Examination - Vital Signs reviewed - Physical Exam General: Alert, In no apparent distress; morbid obesity Respiratory: Clear to auscultation bilaterally, Normal air movement Cardiovascular: Regular rate/rhythm, Normal S1 S2 Gastrointestinal: Normal bowel sounds, mild tenderness Musculoskeletal: No tenderness Integumentary: No rashes Neurological: No focal deficits Assessment & Plan - Problems (Diagnosis) (1) Type 1 diabetes Current Visit: Yes Status: Acute (2) Diabetic ketoacidosis Current Visit: Yes Status: Acute (3) Acute pancreatitis Current Visit: No Status: Acute Qualifiers: (4) Hypertriglyceridemia Onset Date: 11/10/17 Current Visit: No Status: Acute (5) pancreatitis due to hypertriglyceridemia Onset Date: ~09/11/24 Current Visit: No Status: Acute (6) Fatty infiltration of liver Current Visit: No Status: Chronic (7) Morbid obesity Current Visit: No Status: Chronic - Plan Continue plan of care as mentioned below: 1. Acute pancreatitis secondary to hypertriglyceridemia; patient triglyceride >3000. Patient is on Lopid and fish oil and will continue this. Recheck lipase and triglyceride levels. Continue with IV hydration at this time. Will start clear liquid diet as patient's pain is tolerable. 2. DKA; this is seems to be resolved. Patient's blood sugars are better controlled and acidosis has improved. Will repeat beta hydroxybutyrate and lactic acid levels. 3. Metabolic acidosis; this is compensated. Most likely related to lactic acidosis and ketosis. Continue with above management 4. Metabolic syndrome; strict blood pressure and blood sugar control; continue with thyroid medications 5. GI DVT prophylaxis Discharge Plan: Home Plan to discharge in: Greater than 2 days - Advance Directives Does patient have a Living Will: No Does patient have a Durable POA for Healthcare: No - Code Status/Comfort Care Code Status Assessed: Yes Code Status: Full Code Critical Care: No Time Spent Managing PTS Care (In Minutes): 35
[2024-09-12] MEDS: MAGNESIUM SULFATE 1 gm IVPB 1 GM/100 ML BAG IV ONE (09:11)
[2024-09-12] MEDS: POTASSIUM CL SA 10 MEQ TAB PO ONE ×2 (09:12→17:06)
[2024-09-12 09:27] LABS: Specific Gravity 1.027 (1.005-1.030); Sqamous Epithelial <5 /HPF (None Seen); Urine Bacteria <20 /HPF (<20); Urine Bilirubin NEGATIVE (Negative); Urine Blood Negative (Negative); Urine Clarity Clear (Clear); Urine Color Yellow (Yellow); Urine Culture Reflex Order NOT NEEDED; Urine Glucose 4+ (Over) (Negative); Urine Ketones NEGATIVE (Negative); Urine Micro Reflex YN NO BILL MICROSCOPIC; Urine Mucus Slight /HPF (None Seen); Urine Nitrite NEGATIVE (Negative); Urine Protein 1+ (Negative); Urine RBC None Seen /HPF (None Seen); Urine Urobilinogen Normal (Normal); Urine WBC <5 /HPF (<5)
[2024-09-12 10:13] LABS: Blood Morphology Comment NOT SEEN (NOT SEEN); Platelet Estimate ADEQ; White Blood Cell Scan OK (OK)
[2024-09-12 13:08] LABS: Anion Gap 11.5 mEq/L (5.0-15.0)
[2024-09-12 13:14] LABS: Potassium 3.5 mEq/L (3.5-5.1)
[2024-09-12 19:01] LABS: Anion Gap 10.4 mEq/L (5.0-15.0); Potassium 4.4 mEq/L (3.5-5.1)
[2024-09-12 22:27] VITALS: O2SAT 97
[2024-09-13] MEDS: INSULIN REGULAR (HUMAN) 100 UNIT/ML ONE (00:04)
[2024-09-13] MEDS: NA CHLORIDE 0.9% 100 ML ONE (00:05)
[2024-09-13 02:07] LABS: Anion Gap 13.1 mEq/L (5.0-15.0)
[2024-09-13 02:08] LABS: Potassium 4.1 mEq/L (3.5-5.1)
[2024-09-13 05:55] LABS: Absolute Basophils 0.1 K/uL (0-0.5); Absolute Eosinophils 0.1 K/uL (0-0.5); Absolute Lymphocytes (CBC) 1.7 K/uL (0.7-4.9); Absolute Monocytes 0.4 K/uL (0.1-1.3); Absolute Neutrophil 2.5 K/uL (1.8-8.0); Basophils % 1.8 % (0-1.3); Eosinophils % 2.2 % (0-4.4); Hematocrit 30.7 % (36.0-45.0); Lymphocytes % 35.6 % (15.3-44.8); MCH 29.8 pg (27.0-35.0); MCHC 35.9 g/dL (32.0-36.0); MPV 7.8 fL (7.6-11.3); Monocytes % 7.7 % (3.3-12.3); Neutrophils % 52.7 % (41.7-73.7); Nucleated Red Blood Cells % 0.1 % (0-0); Platelets 205 thou/uL (152-406); Red Cell Distribution Width 15.3 % (12.1-15.2)
[2024-09-13 06:39] LABS: Anion Gap 10.4 mEq/L (5.0-15.0); Magnesium 1.8 mg/dL (1.6-2.4); Phosphorus 3.1 mg/dL (2.5-4.9); Potassium 3.4 mEq/L (3.5-5.1)
[2024-09-13] MEDS: POTASSIUM CL SA 10 MEQ TAB PO ONE (08:53)
[2024-09-13] MEDS: MAGNESIUM SULFATE 1 gm IVPB 1 GM/100 ML BAG IV ONE (08:55)
[2024-09-13 09:47] VITALS: TEMP 98.6
[2024-09-13 14:35] LABS: Anion Gap 11.1 mEq/L (5.0-15.0)
[2024-09-13 14:36] LABS: Potassium 4.1 mEq/L (3.5-5.1)
[2024-09-13] MEDS: FLUOXETINE 20 MG CAP PO SCH (15:21)
[2024-09-13 17:41] VITALS: BP 111/74
[2024-09-13] MEDS ORDERED: TRAZODONE 150 MG TAB PO SCH (21:00)
[2024-09-13] MEDS ORDERED: HOME MED 1 EA UNK (Metformin Hcl [Metformin Hcl] 1,000 MG Tablet) PO SCH (21:00)
[2024-09-13] MEDS ORDERED: BUSPIRONE HCL 5 MG TABLET PO SCH (21:00)
[2024-09-13] MEDS ORDERED: INSULIN GLARGINE 100 UNIT/ML SQ SCH (21:00)
[2024-09-13] MEDS ORDERED: METFORMIN HCL 500 MG TAB PO SCH (21:00)
[2024-09-13] MEDS ORDERED: INSULIN LISPRO 100 UNIT/1 ML SQ SCH (21:00)
[2024-09-13] MEDS ORDERED: GABAPENTIN 300 MG CAP PO SCH (21:00)
[2024-09-13] MEDS ORDERED: HOME MED 1 EA UNK (Insulin Glargine,Hum.Rec.Anlog [Basaglar Kwikpen U-100] 100 UNIT/ML Ins SQ SCH (21:00)
[2024-09-14] MEDS ORDERED: GLIMEPIRIDE 2 MG TABLET PO SCH (08:00)
[2024-09-14] MEDS ORDERED: METOPROLOL XL 25 MG TAB PO SCH (09:00)
[2024-09-14] MEDS ORDERED: EZETIMIBE 10 MG TAB PO SCH (09:00)
[2024-09-14] MEDS ORDERED: RIVAROXABAN 20 MG TABLET PO SCH (09:00)
[2024-09-14] MEDS ORDERED: HOME MED 1 EA UNK (Glimepiride [Glimepiride] 4 MG Tablet) PO SCH (09:00)
== END 2024-09-13 18:58 | disposition home or self-care (01) | DRG 438 ==
LOC: ER 14:00 → ERHOLD 19:38 → 4TH 09-11 15:00 → 3RD-ICU 09-11 16:12
PROVIDERS: ADMIT Internal Medicine; ATTEND Hospitalist
PROC: 4A033R1 Measurement of Arterial Saturation, Peripheral, Percutaneous Approach (ICD-10-PCS; principal; 2024-09-10)
DX: K85.90 Acute pancreatitis without necrosis or infection, unspecified (principal); E10.10 Type 1 diabetes mellitus with ketoacidosis without coma; I48.91 Unspecified atrial fibrillation; E78.00 Pure hypercholesterolemia, unspecified; I10 Essential (primary) hypertension; E66.01 Morbid (severe) obesity due to excess calories; I48.0 Paroxysmal atrial fibrillation; E78.1 Pure hyperglyceridemia; K76.0 Fatty (change of) liver, not elsewhere classified; E88.810 Metabolic syndrome; E10.65 Type 1 diabetes mellitus with hyperglycemia; Z79.4 Long term (current) use of insulin; Z68.39 Body mass index [BMI] 39.0-39.9, adult; Z79.84 Long term (current) use of oral hypoglycemic drugs; Z86.73 Personal history of transient ischemic attack (TIA), and cerebral infarction without residual deficits; Z79.899 Other long term (current) drug therapy
CPT/HCPCS: 36415; 36600; 71045; 71260; 74177; 80048; 80053; 80061; 80076; 81001; 82010; 82805; 82947; 83036; 83605; 83690; 83735; 84100; 84478; 84484; 84702; 85025; 93005; 96361; 96372; 96374; 96375; 99285; J1171; J1200; J1650; J1815; J2405; J2470; J2550; J3475; J7030; J7042; Q9967

== ENCOUNTER 2024-11-25 10:36 | Emergency (ER) | payer OTHER ==
[2024-11-25] MEDS ORDERED: NA CHLORIDE 0.9% 1,000 ML ONE ×2 (11:26→13:41)
[2024-11-25 11:43] LABS: Urine Color Light-Yellow (Yellow)
[2024-11-25 11:44] LABS: Specific Gravity 1.028 (1.005-1.030); Urine Bilirubin NEGATIVE (Negative); Urine Blood 2+ (Negative); Urine Clarity Turbid (Clear); Urine Glucose 4+ (Negative); Urine Ketones Negative (Negative); Urine Nitrite Negative (Negative); Urine Protein 1+ (Negative); Urine Urobilinogen Normal mg/dL (0.2-1.0); Urine pH 5.5 (5.0-7.0)
[2024-11-25 11:45] LABS: Urine Bacteria <20 /HPF (<20); Urine Culture Reflex Order REFLEXED; Urine Microscopic Reflex YN ORDER UMIC; Urine WBC >50 /HPF (<5)
[2024-11-25 11:56] LABS: Absolute Basophils 0.1 K/uL (0-0.5); Absolute Eosinophils 0.2 K/uL (0-0.5); Absolute Lymphocytes (CBC) 2.7 K/uL (0.7-4.9); Absolute Monocytes 0.6 K/uL (0.1-1.3); Absolute Neutrophil 4.9 K/uL (1.8-8.0); Basophils % 1.7 % (0-1.3); Eosinophils % 2.3 % (0-4.4); Hematocrit 34.1 % (36.0-45.0); Hemoglobin 12.3 g/dL (12.0-15.0); MCH 29.7 pg (27.0-35.0); MCHC 35.9 g/dL (32.0-36.0); MCV 82.7 fL (80-100); MPV 7.3 fL (7.6-11.3); Monocytes % 6.9 % (3.3-12.3); Neutrophils % 57.1 % (41.7-73.7); Nucleated Red Blood Cells % 0.1 % (0-0); Platelets 236 thou/uL (152-406); RBC Red Blood Cell Count 4.13 M/uL (3.86-4.86); Red Cell Distribution Width 14.8 % (12.1-15.2)
[2024-11-25 12:28] LABS: Albumin 3.1 g/dL (3.4-5.0); Albumin/Globulin Ratio 0.8 (1.1-1.8); Anion Gap 17.3 mEq/L (5.0-15.0); Bilirubin Total 0.5 mg/dL (0.2-1.0); Potassium 4.3 mEq/L (3.5-5.1); Protein, Total 7.1 g/dL (6.4-8.2)
[2024-11-25] MEDS ORDERED: INSULIN REGULAR (HUMAN) 100 UNIT/ML ONE (13:40)
[2024-11-25] MEDS ORDERED: CEFTRIAXONE 1000 MG/VIAL ONE (13:40)
[2024-11-25] MEDS ORDERED: NA CHLORIDE 0.9% 50 ML ONE (13:41)
--- NOTE | 2024-11-25 15:02 | EDPHYS ---
Physician Documentation [facility] Name: Valentina Franco Age: 44 yrs Sex: Female : 1980 Arrival Date: 11/25/2024 Time: 10:36 Bed 14 Private MD: ED Physician Shireen Hurst HPI: 11/25 11:30 This 44 yrs old Female presents to ER via Ambulatory with complaints of sp3 Urinary Problem. 11:30 44-year-old female with history of atrial fibrillation, depression, diabetes, sp3 hyperlipidemia, prior UTIs now presents with dysuria and frequent urination for the last 48 hours. She denies any significant abdominal pain, back pain, flank pain, history of kidney stones, fever, or any other signs or symptoms on ROS at this time.. 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 - Infectious Disease History:: Denies. - Social history:: Smoking status: Patient denies any tobacco usage or history of. ROS: 11:30 Constitutional: Negative for fever, chills, and weight loss, Eyes: Negative for injury, sp3 pain, redness, and discharge, ENT: Negative for injury, pain, and discharge, Neck: Negative for injury, pain, and swelling, Cardiovascular: Negative for chest pain, palpitations, and edema, Respiratory: Negative for shortness of breath, cough, wheezing, and pleuritic chest pain, Abdomen/GI: Negative for abdominal pain, nausea, vomiting, diarrhea, and constipation, Back: Negative for injury and pain, MS/Extremity: Negative for injury and deformity, Skin: Negative for injury, rash, and discoloration, Neuro: Negative for headache, weakness, numbness, tingling, and seizure, Psych: Negative for depression, anxiety, suicide ideation, homicidal ideation, and hallucinations, Allergy/Immunology: Negative for hives, rash, and allergies, Endocrine: Negative for neck swelling, polydipsia, polyuria, polyphagia, and marked weight changes, 11:30 All other systems are negative, Exam: 11:31 Constitutional: This is a well developed, well nourished patient who is awake, alert, sp3 and in no acute distress. Head/Face: Normocephalic, atraumatic. Eyes: Pupils equal round and reactive to light, extra-ocular motions intact. Lids and lashes normal. Conjunctiva and sclera are non-icteric and not injected. Cornea within normal limits. Periorbital areas with no swelling, redness, or edema. Neck: Trachea midline, no thyromegaly or masses palpated, and no cervical lymphadenopathy. Supple, full range of motion without nuchal rigidity, or vertebral point tenderness. No Meningismus. Chest/axilla: Normal chest wall appearance and motion. Nontender with no deformity. No lesions are appreciated. Cardiovascular: Regular rate and rhythm with a normal S1 and S2. No gallops, murmurs, or rubs. Normal PMI, no JVD. No pulse deficits. Respiratory: Lungs have equal breath sounds bilaterally, clear to auscultation and percussion. No rales, rhonchi or wheezes noted. No increased work of breathing, no retractions or nasal flaring. Abdomen/GI: Soft, non-tender, with normal bowel sounds. No distension or tympany. No guarding or rebound. No evidence of tenderness throughout. Back: No spinal tenderness. No costovertebral tenderness. Full range of motion. Skin: Warm, dry with normal turgor. Normal color with no rashes, no lesions, and no evidence of cellulitis. MS/ Extremity: Pulses equal, no cyanosis. Neurovascular intact. Full, normal range of motion. Neuro: Awake and alert, GCS 15, oriented to person, place, time, and situation. Cranial nerves II-XII grossly intact. Motor strength 5/5 in all extremities. Sensory grossly intact. Cerebellar exam normal. Normal gait. Vital Signs: 10:57 BP 136 / 94; Pulse 108; Resp 16; Temp 98.1; Pulse Ox 97% ; Weight 99.79 kg; Height 5 db ft. 4 in. ; 12:00 BP 126 / 85; Pulse 97; Resp 18; Pulse Ox 99% ; db 13:19 BP 126 / 78; Pulse 85; Resp 16; Pulse Ox 97% on R/A; db 14:00 BP 109 / 77; Pulse 84; Resp 16; Pulse Ox 97% on R/A; db 14:30 BP 123 / 84; Pulse 87; Resp 16; Pulse Ox 98% on R/A; db 10:57 Body Mass Index 37.76 (99.79 kg, 162.56 cm) db MDM: 10:58 Medical Screening Exam initiated sp3 11:31 Data reviewed: vital signs, nurses notes, old medical records, lab test result(s). ED sp3 course: 44-year-old female with urinary symptoms. Differential diagnosis includes UTI/pyelonephritis spectrum versus other urinary abnormality versus dysuria. Workup will include UA and general labs and normal saline 1 L given pulse rate at 100. Patient is afebrile. Clinically I am not highly suspicious for sepsis, shock, kidney stone, vascular pathology, GI pathology, or any other critical process at this time.. 13:18 ED course: Elevated blood sugar with anion gap at 17 indicating possible early sp3 dehydration and/or DKA. Will give 2 L normal saline, 10 units insulin and recheck blood sugar. Heart rate in the 90s currently. UA is positive for infection. Will start Rocephin as well.. 15:01 ED course: Repeat blood sugar 267 and patient feeling better. Heart rate 84. Will sp3 discharge home on p.o. antibiotics.. 11/25 11:09 Order name: UA Rfx Angel Cult if indicated; Complete Time: 13:04 11/25 11:16 Order name: Glucose, Ancillary Testing; Complete Time: 13:04 [facility] 11/25 11:27 Order name: CBC with Diff; Complete Time: 13:04 sp3 11/25 11:27 Order name: CMP; Complete Time: 13:04 sp3 11/25 11:27 Order name: Lipase; Complete Time: 13:04 3 11/25 11:48 Order name: Urine Culture EDMA 11/25 13:05 Order name: Blood Culture Adult (2) sp3 11/25 15:06 Order name: Glucose, Ancillary Testing EDMA 11/25 11:27 Order name: IV Saline Lock; Complete Time: 11:51 sp3 11/25 11:27 Order name: Labs collected and sent; Complete Time: 11:51 3 11/25 14:05 Order name: Accucheck; Complete Time: 14:54 sp3 Administered Medications: 11:46 Drug: NS 0.9% IV 1000 ml IV at 1000 ml once; to be given as a bolus over 60 minutes db Route: IV; Rate: 1000 ml; Site: right antecubital; 14:25 Follow up: Response: No adverse reaction; IV Status: Completed infusion; IV Intake: db 1000ml 13:59 Drug: Insulin Regular Human IVP 10 units IVP once {Co-Signature: ll1 (Topher Astorga RN).} Route: IVP; Site: right antecubital; 14:55 Follow up: Response: No adverse reaction; Blood sugar is lowered db 14:00 Drug: NS 0.9% IV 1000 ml IV at 1 bolus Per protocol; to be given as a bolus over 60 db minutes Route: IV; Rate: 1 bolus; Site: right antecubital; 15:13 Follow up: Response: No adverse reaction; IV Status: Completed infusion; IV Intake: db 1000ml 14:05 Drug: Rocephin - Rocephin (cefTRIAXone) IVPB 1 grams IVPB once over 30 mins; (mix in 50 db mL NS) Route: IVPB; Infused Over: 30 mins; Site: right antecubital; 14:55 Follow up: Response: No adverse reaction; IV Status: Completed infusion; IV Intake: 50mldb Point of Care Testing: Blood Glucose: 10:57 Blood Glucose: 443 mg/dL; db 14:54 Blood Glucose: 274 mg/dL; db Ranges: Critical Glucose Levels:Adult <50 mg/dl or >400 mg/dl <40 mg/dl or >180 mg/dl Disposition Summary: 11/25/24 15:01 Discharge Ordered Notes: Location: Home sp3 Condition: Stable sp3 Diagnosis - Dehydration, hyperglycemia, acute urinary tract infection sp3 Followup: sp3 - With: Private Physician - When: Upon discharge from the Emergency Department - Reason: Continuance of care Discharge Instructions: - Discharge Summary Sheet sp3 - Urinary Tract Infection, Adult sp3 - Preventing Diabetic Ketoacidosis sp3 Forms: - Medication Reconciliation Form sp3 - Antibiotic Education sp3 - Prescription Opioid Use sp3 - Patient Portal Instructions sp3 - Leadership Thank You Letter sp3 Prescriptions: - Bactrim DS 800-160 mg Oral tablet - take 1 tablet ORAL route every 12 hours for 5 days; 10 tablet; Refills: 0, sp3 Product Selection Permitted Signatures: Dispatcher [employer] EDMS Topher Astorga RN RN ll1 Shireen Hurst MD MD sp3 Latoya Mathews RN RN db Topher Astorga RN ll1 Corrections: (The following items were deleted from the chart) 11: 11:09 UA Rfx Angel Cult if indicated+U.LAB.BRZ ordered. EDMS EDMS 11:28 CBC+H.LAB.BRZ ordered. EDMS EDMS 11 11:28 COMPREHENSIVE METABOLIC PANEL+C.LAB.BRZ ordered. EDMS EDMS : 11:28 LIPASE+C.LAB.BRZ ordered. EDMS EDMS 13:06 13:06 BLOOD CULTURE*+BA.LAB.BRZ ordered. EDMS EDMS
--- NOTE | 2024-11-25 15:02 | ER ---
Nurse's Notes [facility] Name: Valentina Franco Age: 44 yrs Sex: Female : 1980 Arrival Date: 11/25/2024 Time: 10:36 Bed 14 Private MD: Diagnosis: Dehydration, hyperglycemia, acute urinary tract infection Presentation: 11/25 10:57 Chief complaint: Patient states: URINARY SYMPTOMS UNABLE TO URINATE SINCE 2200 LAST db NIGHT. Coronavirus screen: Client denies travel out of the [place] in the last 14 days. At this time, the client does not indicate any symptoms associated with coronavirus-19. Ebola Screen: Patient negative for fever greater than or equal to 101.5 degrees Fahrenheit, and additional compatible Ebola Virus Disease symptoms Patient denies exposure to infectious person. Patient denies travel to an Ebola-affected area in the 21 days before illness onset. No symptoms or risks identified at this time. Initial Sepsis Screen: Does the patient meet any 2 criteria? No. Patient's initial sepsis screen is negative. Does the patient have a suspected source of infection? No. Patient's initial sepsis screen is negative. Risk Assessment: Do you want to hurt yourself or someone else? Patient reports no desire to harm self or others. Onset of symptoms was November 24, 2024 at 22:00. 10:57 Method Of Arrival: Ambulatory db 10:57 Acuity: CYNTHIA 3 db Triage Assessment: 10:57 General: Appears in no apparent distress. comfortable, Behavior is calm, cooperative. db Pain: Complains of pain in pelvis. Neuro: Level of Consciousness is awake, alert, obeys commands, Oriented to person, place, time, situation. Respiratory: Airway is patent Respiratory effort is even, unlabored, Respiratory pattern is regular, symmetrical. TAX [employer]ER: 10:57 LMP 06/11/2024, unknown db Historical: - Allergies: 10:55 No Known Allergies; ll1 - PMHx: 10:55 Anxiety; Atrial fibrillation; CVA (yeast infection); Depression; diabetes mellitus; ll1 High Cholesterol; Hypertensive disorder; Kidney stone; Pancreatitis; Sepsis; UTI; yeast infection; - Immunization history:: Adult Immunizations up to date. - Infectious Disease History:: Denies. - Social history:: Smoking status: Patient denies any tobacco usage or history of. Screenin:23 [facility] ED Fall Risk Assessment (Adult) History of falling in the last 3 months, db including since admission No falls in past 3 months (0 pts) Confusion or Disorientation No (0 pts) Intoxicated or Sedated No (0 pts) Impaired Gait No (0 pts) Mobility Assist Device Used No (0 pt) Altered Elimination No (0 pt) Score/Fall Risk Level 0 - 2 = Low Risk Oriented to surroundings, Maintained a safe environment. Abuse screen: Denies threats or abuse. Denies injuries from another. Nutritional screening: No deficits noted. Tuberculosis screening: No symptoms or risk factors identified. Assessment: 11:12 Reassessment: SEE TRIAGE FOR INITIAL ASSESSMENT. db 11:45 Reassessment: Patient appears in no apparent distress at this time. Patient and/or db family updated on plan of care and expected duration. Pain level reassessed. Patient is alert, oriented x 3, equal unlabored respirations, skin warm/dry/pink. General: Appears in no apparent distress. comfortable, Behavior is calm, cooperative. Neuro: Level of Consciousness is awake, alert, obeys commands, Oriented to person, place, time, situation. : Reports inability to void, pain urgency. 12:36 Reassessment: Patient appears in no apparent distress at this time. Patient and/or db family updated on plan of care and expected duration. Pain level reassessed. Patient is alert, oriented x 3, equal unlabored respirations, skin warm/dry/pink. 14:16 Reassessment: Patient appears in no apparent distress at this time. Patient and/or db family updated on plan of care and expected duration. Pain level reassessed. Patient is alert, oriented x 3, equal unlabored respirations, skin warm/dry/pink. Vital Signs: 10:57 BP 136 / 94; Pulse 108; Resp 16; Temp 98.1; Pulse Ox 97% ; Weight 99.79 kg; Height 5 db ft. 4 in. ; 12:00 BP 126 / 85; Pulse 97; Resp 18; Pulse Ox 99% ; db 13:19 BP 126 / 78; Pulse 85; Resp 16; Pulse Ox 97% on R/A; db 14:00 BP 109 / 77; Pulse 84; Resp 16; Pulse Ox 97% on R/A; db 14:30 BP 123 / 84; Pulse 87; Resp 16; Pulse Ox 98% on R/A; db 10:57 Body Mass Index 37.76 (99.79 kg, 162.56 cm) db ED Course: 10:39 Patient arrived in ED. al6 10:40 Shireen Hurst MD is Attending Physician. sp3 10:55 Arm band placed on Patient placed in an exam room, on a stretcher. ll1 10:57 Latoya Mathews, RN is Primary Nurse. db 11:07 Triage completed. db 11:21 Urine collected: clean catch specimen, cloudy. db 11:23 Patient has correct armband on for positive identification. Bed in low position. Call db light in reach. Side rails up X 1. Pulse ox on. NIBP on. Warm blanket given. Pillow given. 11:46 Initial lab(s) drawn, by me, sent to lab. Inserted saline lock: 22 gauge in right db antecubital area, using aseptic technique. Blood collected. Flushed with 10 mL NS. 15:12 Provided Education on: DISCHARGE AND FOLLOWUP. db 15:12 No provider procedures requiring assistance completed. IV discontinued, intact, db bleeding controlled, No redness/swelling at site. Administered Medications: 11:46 Drug: NS 0.9% IV 1000 ml IV at 1000 ml once; to be given as a bolus over 60 minutes db Route: IV; Rate: 1000 ml; Site: right antecubital; 14:25 Follow up: Response: No adverse reaction; IV Status: Completed infusion; IV Intake: db 1000ml 13:59 Drug: Insulin Regular Human IVP 10 units IVP once {Co-Signature: ll1 (Topher Astorga RN).} Route: IVP; Site: right antecubital; 14:55 Follow up: Response: No adverse reaction; Blood sugar is lowered db 14:00 Drug: NS 0.9% IV 1000 ml IV at 1 bolus Per protocol; to be given as a bolus over 60 db minutes Route: IV; Rate: 1 bolus; Site: right antecubital; 15:13 Follow up: Response: No adverse reaction; IV Status: Completed infusion; IV Intake: db 1000ml 14:05 Drug: Rocephin - Rocephin (cefTRIAXone) IVPB 1 grams IVPB once over 30 mins; (mix in 50 db mL NS) Route: IVPB; Infused Over: 30 mins; Site: right antecubital; 14:55 Follow up: Response: No adverse reaction; IV Status: Completed infusion; IV Intake: 50mldb Medication: 11:23 VIS not applicable for this client. db Point of Care Testing: Blood Glucose: 10:57 Blood Glucose: 443 mg/dL; db 14:54 Blood Glucose: 274 mg/dL; db Ranges: Intake: 14:25 IV: 1000ml; Total: 1000ml. db 14:55 IV: 50ml; Total: 1050ml. db 15:13 IV: 1000ml; Total: 2050ml. db Outcome: 15:01 Discharge ordered by . sp3 15:12 Discharged to home ambulatory, with family, db 15:12 Condition: stable 15:12 Discharge instructions given to patient, Instructed on discharge instructions, follow up and referral plans. Prescriptions given X 1, 15:13 Patient left the ED. db Signatures: Topher Astorga, RN RN ll1 Shireen Hurst MD MD sp3 Latoya Mathews RN RN db Toshia Stearns6 Topher Astorga RN ll1
[2024-11-25 15:30] VITALS: TEMP 98.1
[2024-11-25 15:35] VITALS: BP 123/84; O2SAT 98
== END 2024-11-25 15:13 | disposition home or self-care (01) ==
LOC: ER 10:36
DX: N39.0 Urinary tract infection, site not specified (principal); E86.0 Dehydration; E11.65 Type 2 diabetes mellitus with hyperglycemia; Z87.442 Personal history of urinary calculi
CPT/HCPCS: 96365; 96361; 87040 ×2; 87088; 85025; 81001; 87086; 36415; 82947 ×2; 83690; 80053; 96375; 99284; J1815; J7030 ×2; J0696; 87077; 87186

== ENCOUNTER 2025-03-29 09:46 | Emergency (ER) | payer OTHER ==
[2025-03-29] MEDS ORDERED: NA CHLORIDE 0.9% 1,000 ML ONE ×2 (10:22→12:17)
[2025-03-29] MEDS ORDERED: MORPHINE 4 MG/ML SYR ONE (10:22)
[2025-03-29] MEDS ORDERED: ONDANSETRON 4 MG/2 ML VIAL ONE (10:22)
[2025-03-29 10:40] LABS: Absolute Lymphocytes (CBC) 1.4 K/uL (0.7-4.9); Hematocrit 35.2 % (36.0-45.0); Hemoglobin 11.9 g/dL (12.0-15.0); MCH 27.2 pg (27.0-35.0); MCHC 33.7 g/dL (32.0-36.0); MCV 80.7 fL (80-100); MPV 6.6 fL (7.6-11.3); Nucleated RBC Absolute Count 0.0 (0-0); Nucleated Red Blood Cells % 0.0 % (0-0); RBC Red Blood Cell Count 4.36 M/uL (3.86-4.86); White Blood Count 4.70 thou/uL (4.3-10.9)
[2025-03-29 10:58] LABS: ALT/SGPT 91.0 U/L (13-56); AST/SGOT 73.0 U/L (15-37); Albumin 3.7 g/dL (3.4-5.0); Albumin/Globulin Ratio 0.9 (1.1-1.8); Alkaline Phosphatase 38.0 U/L (45-117); Anion Gap 10.0 mEq/L (5.0-15.0); BUN Blood Urea Nitrogen 14.0 mg/dL (7-18); Globulin 3.9 g/dL (2.3-3.5); Glucose Level 302.0 mg/dL (74-106); Lipase 55.0 U/L (13-75); Potassium 4.0 mEq/L (3.5-5.1)
[2025-03-29 12:09] LABS: Sqamous Epithelial <5 /HPF (None Seen); Urine Culture Reflex Order NOT NEEDED; Urine Microscopic Reflex YN ORDER UMIC
[2025-03-29] MEDS ORDERED: PROMETHAZINE INJ 25 MG/ML AMP ONE (12:12)
[2025-03-29] MEDS ORDERED: METOCLOPRAMIDE 10 MG/2mL INJ ONE (12:17)
--- NOTE | 2025-03-29 12:22 | RAD REPORT ---
EXAMINATION: CT Abdomen Pelvis W Contrast CLINICAL INDICATION: Female, 45 years old. ABD PAIN TECHNIQUE: CT abdomen and pelvis was performed, after the administration of IV contrast, as per depar tment protocol. Axial, sagittal and coronal reconstructions were obtained. One or more of the following dose reduction techniques were used: Automated exposure control, adjustment of the mA and k V according to patient size, and iterative reconstruction. Unless otherwise specified, incidental findings do not require dedicated imaging follow-up. COMPARISON: 01/28/2025 FINDINGS: LOWER CHEST: The visualized lung bases are clear. LIVER: Significant fatty liver with hepatomegaly present. No focal lesion or biliary dilitation. BILIARY SYSTEM: Status post cholecystectomy. SPLEEN: Normal size. No focal lesion. PANCREAS: No mass, ductal dilation, or balaji-pancreatic fluid. ADRENALS: Normal; no mass. KIDNEYS: Normal size, with stable lobulated contour . No hydronephrosis. URINARY BLADDER: Unremarkable. GASTROINTESTINAL TRACT: No evidence of free air, significant intra-abdominal free fluid, bowel obstru ction or abscess. Mild colonic diverticulosis without evidence of acute diverticulitis. APPENDIX: Normal appendix. LYMPH NODES: No lymphadenopathy. MUSCULOSKELETAL: No acute or suspicious osseous abnormality. ADDITIONAL FINDINGS: Stable mild thickening along the right rectus abdominis muscle with focal calcif ication. right more than left posterior gluteal region injection granulomas again seen. IMPRESSION: No acute abnormalities seen in the abdomen or pelvis. Stable findings including diffuse hepatic steatosis with hepatomegaly and mild colonic diverticulosis .
[2025-03-29] MEDS ORDERED: HYDROMORPHONE HCL 1 MG/ML INJ ONE (12:41)
--- NOTE | 2025-03-29 12:52 | ER ---
Nurse's Notes [facility] Name: Valentina Franco Age: 45 yrs Sex: Female : 1980 Arrival Date: 03/29/2025 Time: 09:46 Bed 15 Private MD: Diagnosis: Other specified noninfective gastroenteritis and colitis;Diverticulosis of large intestine without perforation or abscess without bleeding Presentation: 03/29 10:03 Chief complaint: Patient states: Abdominal pain with N/V/D for 3 days. Coronavirus ll1 screen: Client denies travel out of the [place] in the last 14 days. diarrhea, fatigue, nausea, vomiting. Client presents with at least one sign or symptom that may indicate coronavirus-19. Standard/surgical mask placed on the client. Ebola Screen: Patient denies travel to an Ebola-affected area in the 21 days before illness onset. Initial Sepsis Screen: Does the patient meet any 2 criteria? No. Patient's initial sepsis screen is negative. Does the patient have a suspected source of infection? No. Patient's initial sepsis screen is negative. Risk Assessment: Do you want to hurt yourself or someone else? Patient reports no desire to harm self or others. Onset of symptoms was March 27, 2025. 10:03 Method Of Arrival: Ambulatory ll1 10:03 Acuity: CYNTHIA 3 ll1 Triage Assessment: 10:06 General: Appears uncomfortable, Behavior is calm, cooperative, appropriate for age. ll1 Pain: Complains of pain in abdomen Pain currently is 9 out of 10 on a pain scale. Quality of pain is described as aching, crampy. GI: Reports upper abdominal pain, cramping, diarrhea, nausea, vomiting. Historical: - Allergies: 09:58 No Known Allergies; ll1 - PMHx: :58 Anxiety; Atrial fibrillation; CVA (Unknown); Depression; diabetes mellitus; High ll1 Cholesterol; Hypertensive disorder; Kidney stone; Pancreatitis; Sepsis; UTI; yeast infection; - PSHx: 09:58 section; Cholecystectomy; Heart ablation; Tonsillectomy; ll1 - Immunization history:: Adult Immunizations up to date. - Social history:: Smoking status: Patient denies any tobacco usage or history of. Screenin:40 [facility] ED Fall Risk Assessment (Adult) History of falling in the last 3 months, jp5 including since admission No falls in past 3 months (0 pts) Confusion or Disorientation No (0 pts) Intoxicated or Sedated No (0 pts) Impaired Gait No (0 pts) Mobility Assist Device Used No (0 pt) Altered Elimination No (0 pt) Score/Fall Risk Level 0 - 2 = Low Risk Oriented to surroundings, Maintained a safe environment, Educated pt \T\ family on fall prevention, incl call for assistance when getting out of bed, Assessed \T\ reinforced patient's understanding of fall precautions, Provided non-skid footwear, Hourly rounding (assess needs \T\ fall precautionary measures) done. Abuse screen: Denies threats or abuse. Denies injuries from another. Nutritional screening: Has had N/V for 3 or more days. Tuberculosis screening: No symptoms or risk factors identified. Assessment: 10:30 General: Appears in no apparent distress. comfortable, Behavior is calm, cooperative, jp5 appropriate for age. Pain: Complains of pain in abdomen. Neuro: No deficits noted. Cardiovascular: No deficits noted. Respiratory: No deficits noted. GI: Bowel sounds present X 4 quads. Abd is soft Reports diarrhea, nausea, vomiting. Vital Signs: 10:03 BP 128 / 62; Pulse 81; Resp 17; Temp 98.5(O); Pulse Ox 94% on R/A; Weight 106.59 kg; ll1 Height 5 ft. 4 in. ; Pain 9/10; 10:15 BP 109 / 59; Pulse 76; Resp 16; Pulse Ox 95% on R/A; jp5 11:00 Pain 8/10; jp5 11:50 BP 113 / 58; Pulse 66; Resp 16; Pulse Ox 95% on R/A; jp5 12:30 BP 129 / 78; Pulse 72; Resp 16; Temp 98; Pulse Ox 97% on R/A; jp5 10:03 Body Mass Index 40.34 (106.59 kg, 162.56 cm) ll1 10:03 Pain Scale: Adult ll1 11:00 Pain Scale: Adult jp5 ED Course: 09:51 Patient arrived in ED. cj3 09:53 Anish Cunha FNP-C [facility] dr5 09:53 Gunnar Mccabe DO is Attending Physician. dr5 09:58 Arm band placed on Patient placed in an exam room, on a stretcher. ll1 10:00 Shari Massey, RN is Primary Nurse. jp5 10:05 Triage completed. ll1 10:35 Inserted saline lock: 20 gauge in left antecubital area, using aseptic technique. Blood jp5 collected. Flushed with 10 mL NS. 10:36 CBC with Diff Sent. jp5 10:36 CMP Sent. jp5 10:36 Lipase Sent. jp5 10:36 Lipid Profile Sent. jp5 10:40 Patient has correct armband on for positive identification. Bed in low position. Call jp5 light in reach. Side rails up X 1. Provided Education on: call light. 10:41 No provider procedures requiring assistance completed. jp5 11:42 CT Abd/Pelvis - IV Contrast Only In Process Unspecified. EDMS 11:50 UA Rfx Angel Cult if indicated Sent. jp5 13:04 IV discontinued, intact, bleeding controlled, No redness/swelling at site. Pressure jp5 dressing applied. Administered Medications: 10:36 Drug: Ondansetron IVP 4 mg IVP once; over 2 minutes Route: IVP; Site: left antecubital; jp5 11:00 Follow up: Response: No adverse reaction; Nausea unchanged jp5 10:36 Drug: morphine IVP or IV 4 mg IVP once over 4 mins Route: IVP; Infused Over: 4 mins; jp5 Site: left antecubital; 11:00 Follow up: Pain 8/10 Adult; Response: No adverse reaction; Pain is decreased jp5 10:36 Drug: NS 0.9% IV 1000 ml IV at 1 bolus Per protocol; to be given as a bolus over 60 jp5 minutes Route: IV; Rate: 1 bolus; Site: left antecubital; 11:36 Follow up: Response: No adverse reaction; IV Status: Completed infusion; IV Intake: jp5 1000ml 12:14 Drug: Promethazine IM 25 mg IM once Route: IM; Site: right gluteus; jp5 13:04 Follow up: Response: No adverse reaction jp5 12:18 Drug: metoCLOPramide IVP 10 mg IVP once; over 1 to 2 minutes Route: IVP; Site: left jp5 antecubital; 12:40 Follow up: Response: No adverse reaction jp5 12:18 Drug: NS 0.9% IV 1000 ml IV at 1000 ml once; to be given as a bolus over 60 minutes jp5 Route: IV; Rate: 1000 ml; Site: left antecubital; 13:03 Follow up: Response: No adverse reaction; IV Status: Infusion continued; IV Intake: jp5 1000ml 12:41 Not Given (Physician Discretion): hydromorphone1 mg IVP once dr5 Medication: 10:40 VIS not applicable for this client. jp5 Intake: 11:36 IV: 1000ml; Total: 1000ml. jp5 13:03 IV: 1000ml; Total: 2000ml. jp5 Outcome: 12:52 Discharge ordered by . dr5 13:05 Discharged to home ambulatory, jp5 13:05 Condition: stable 13:05 Discharge instructions given to patient, Instructed on discharge instructions, follow up and referral plans. no drinking with medication, medication usage, Demonstrated understanding of instructions, follow-up care, medications, Prescriptions given X 3, 13:05 Patient left the ED. jp5 Signatures: Dispatcher [employer] EDTopher Yoo, RN RN ll1 Shari Massey RN RN jp5 Anish Cunha, IT BUSINESS ANALYST-C IT BUSINESS ANALYST-Cdr5 Flaquita Mayberry cj3 Corrections: (The following items were deleted from the chart) 12:11 11:50 TEST, SERUM+SC.LAB.BRZ drawn and sent. 5 EDFL
--- NOTE | 2025-03-29 12:52 | EDPHYS ---
Physician Documentation [facility] Name: Valentina Franco Age: 45 yrs Sex: Female : 1980 Arrival Date: 03/29/2025 Time: 09:46 Bed 15 Private MD: ED Physician Gunnar Mccabe HPI: 03/29 10:15 This 45 yrs old Female presents to ER via Ambulatory with complaints of dr5 Abdominal Pain, Nausea/Vomiting. 10:15 The patient presents with abdominal pain in the epigastric area. Onset: The dr5 symptoms/episode began/occurred 3 day(s) ago. Patient is a 45-year-old female with history of anxiety, A-fib, CVA, depression, diabetes, hyperlipidemia, hypertension, pancreatitis coming in with epigastric abdominal pain that is similar to previous pancreatitis. Patient reports nausea and vomiting. Patient reports history of cholecystectomy. Patient denies chest pain, shortness of breath, dysuria, fever.. Historical: - Allergies: 09:58 No Known Allergies; ll1 - PMHx: 09:58 Anxiety; Atrial fibrillation; CVA (Unknown); Depression; diabetes mellitus; High ll1 Cholesterol; Hypertensive disorder; Kidney stone; Pancreatitis; Sepsis; UTI; yeast infection; - PSHx: 09:58 section; Cholecystectomy; Heart ablation; Tonsillectomy; ll1 - Immunization history:: Adult Immunizations up to date. - Social history:: Smoking status: Patient denies any tobacco usage or history of. ROS: 10:15 Constitutional: as per hpi dr5 Exam: 10:15 Constitutional: This is a well developed, well nourished patient who is awake, alert, dr5 and in no acute distress. Head/Face: Normocephalic, atraumatic. Eyes: Pupils equal round and reactive to light, extra-ocular motions intact. Lids and lashes normal. Conjunctiva and sclera are non-icteric and not injected. Cornea within normal limits. Periorbital areas with no swelling, redness, or edema. Neck: Trachea midline, no thyromegaly or masses palpated, and no cervical lymphadenopathy. Supple, full range of motion without nuchal rigidity, or vertebral point tenderness. No Meningismus. Chest/axilla: Normal chest wall appearance and motion. Nontender with no deformity. No lesions are appreciated. Cardiovascular: Regular rate and rhythm with a normal S1 and S2. Normal PMI, no JVD. No pulse deficits. Respiratory: Lungs have equal breath sounds bilaterally, clear to auscultation. No rales, rhonchi or wheezes noted. No increased work of breathing, no retractions or nasal flaring. Back: No spinal tenderness. No costovertebral tenderness. Full range of motion. Skin: Warm, dry with normal turgor. Normal color with no rashes, no lesions, and no evidence of cellulitis. MS/ Extremity: Pulses equal, no cyanosis. Neurovascular intact. Full, normal range of motion. 10:15 Abdomen/GI: Inspection: abdomen appears normal, Bowel sounds: normal, Palpation: moderate abdominal tenderness, in the epigastric area, Vital Signs: 10:03 BP 128 / 62; Pulse 81; Resp 17; Temp 98.5(O); Pulse Ox 94% on R/A; Weight 106.59 kg; ll1 Height 5 ft. 4 in. ; Pain 9/10; 10:15 BP 109 / 59; Pulse 76; Resp 16; Pulse Ox 95% on R/A; jp5 11:00 Pain 8/10; jp5 11:50 BP 113 / 58; Pulse 66; Resp 16; Pulse Ox 95% on R/A; jp5 12:30 BP 129 / 78; Pulse 72; Resp 16; Temp 98; Pulse Ox 97% on R/A; jp5 10:03 Body Mass Index 40.34 (106.59 kg, 162.56 cm) ll1 10:03 Pain Scale: Adult ll1 11:00 Pain Scale: Adult jp5 MDM: 09:53 Medical Screening Exam initiated dr5 12:52 Differential diagnosis: diverticulitis, gastritis, pancreatitis, urinary tract dr5 infection, Hyperglycemia, electrolyte normality, diverticulosis. Data reviewed: vital signs, nurses notes, lab test result(s), amylase and lipase, CBC, white blood cell count, hemoglobin, hematocrit, platelets, electrolytes, sodium, potassium, chloride, serum bicarbonate, BUN, creatinine, serum glucose, radiologic studies, CT scan. Consideration of Admission/Observation Escalation of care including admission/observation considered. Escalation considered patient found to have diverticulitis or perforation. I considered the following discharge prescriptions or medication management in the emergency department I discussed and recommended Over The Counter medications, Medications were administered in the Emergency Department. See MAR. Care significantly affected by the following chronic conditions: Anxiety, A-fib, CVA, diabetes, depression, hyperlipidemia. Care significantly affected by the following Social Determinants of Health: Poor access to healthcare and/or lack of insurance, Poor access to transportation, Problems related to employment. Counseling: I had a detailed discussion with the patient and/or guardian regarding the historical points, exam findings, and any diagnostic results supporting the discharge/admit diagnosis, the presence of at least one elevated blood pressure reading (>120/80) during this emergency department visit, lab results, radiology results, the need for outpatient follow up, for definitive care, a supervisor ore dressing, to return to the emergency department if symptoms worsen or persist or if there are any questions or concerns that arise at home. 14:34 ED course: I was immediately available on-site in the Emergency Department for ms3 consultation in the care of the patient. 03/29 10:10 Order name: CBC with Diff; Complete Time: 10:45 03/29 10:10 Order name: CMP; Complete Time: 11:03/29 10:10 Order name: Lipase; Complete Time: 11:03/29 10:15 Order name: UA Rfx Angel Cult if indicated; Complete Time: 12:03/29 12:07 Order name: Test, Urine; Complete Time: 12:03/29 10:15 Order name: CT Abd/Pelvis - IV Contrast Only; Complete Time: 12:28 03/29 10:10 Order name: IV Saline Lock; Complete Time: 10:36 03/29 10:10 Order name: Labs collected and sent; Complete Time: 10:36 [facility] Administered Medications: 10:36 Drug: Ondansetron IVP 4 mg IVP once; over 2 minutes Route: IVP; Site: left antecubital; jp5 11:00 Follow up: Response: No adverse reaction; Nausea unchanged jp5 10:36 Drug: morphine IVP or IV 4 mg IVP once over 4 mins Route: IVP; Infused Over: 4 mins; jp5 Site: left antecubital; 11:00 Follow up: Pain 8/10 Adult; Response: No adverse reaction; Pain is decreased jp5 10:36 Drug: NS 0.9% IV 1000 ml IV at 1 bolus Per protocol; to be given as a bolus over 60 jp5 minutes Route: IV; Rate: 1 bolus; Site: left antecubital; 11:36 Follow up: Response: No adverse reaction; IV Status: Completed infusion; IV Intake: jp5 1000ml 12:14 Drug: Promethazine IM 25 mg IM once Route: IM; Site: right gluteus; jp5 13:04 Follow up: Response: No adverse reaction jp5 12:18 Drug: metoCLOPramide IVP 10 mg IVP once; over 1 to 2 minutes Route: IVP; Site: left jp5 antecubital; 12:40 Follow up: Response: No adverse reaction jp5 12:18 Drug: NS 0.9% IV 1000 ml IV at 1000 ml once; to be given as a bolus over 60 minutes jp5 Route: IV; Rate: 1000 ml; Site: left antecubital; 13:03 Follow up: Response: No adverse reaction; IV Status: Infusion continued; IV Intake: jp5 1000ml 12:41 Not Given (Physician Discretion): hydromorphone1 mg IVP once dr5 Disposition: 14:34 I was immediately available on-site in the Emergency Department for consultation in the ms3 care of the patient. Disposition Summary: 03/29/25 12:52 Discharge Ordered Notes: Location: Home dr5 Condition: Stable dr5 Diagnosis - Other specified noninfective gastroenteritis and colitis dr5 - Diverticulosis of large intestine without perforation or abscess without bleeding dr5 Followup: dr5 - With: Emergency Department - When: As needed - Reason: Worsening of condition Followup: dr5 - With: Private Physician - When: 1 - 2 days - Reason: Recheck today's complaints, Continuance of care, Re-evaluation by your physician Discharge Instructions: - Discharge Summary Sheet dr5 - High-Fiber Eating Plan dr5 - Diverticulosis dr5 Forms: - Medication Reconciliation Form dr5 - Antibiotic Education dr5 - Prescription Opioid Use dr5 - Patient Portal Instructions dr5 - Leadership Thank You Letter dr5 Prescriptions: - Flagyl 500 mg Oral Tablet - take 1 tablet ORAL route every 12 hours for 7 days; 14 tablet; Refills: 0, dr5 Product Selection Permitted - Cipro 500 mg Oral Tablet - take 1 tablet ORAL route every 12 hours for 7 days; 14 tablet; Refills: 0, dr5 Product Selection Permitted - Tramadol 50 mg Oral Tablet - take 1 tablet ORAL route every 8 hours as needed; 12 tablet; Refills: 0, dr5 Product Selection Permitted Signatures: Dispatcher [employer] EDMS Topher Astorga, RN RN ll1 Gunnar Mccabe, DO DO ms3 Shari Massey, RN RN jp5 Anish Cunha, AUTO MECHANICS TEACHER-C AUTO MECHANICS TEACHER-Cdr5 Corrections: (The following items were deleted from the chart) 10:15 10:15 Abdomen Pelvis W Con+CT.RAD.BRZ ordered. EDMS EDMS 12:11 10:15 TEST, SERUM+SC.LAB.BRZ ordered. EDMS EDMS
[2025-03-29 13:16] VITALS: BP 129/78; TEMP 98; O2SAT 97
== END 2025-03-29 13:05 | disposition home or self-care (01) ==
LOC: ER 09:46
DX: K52.89 Other specified noninfective gastroenteritis and colitis (principal); K57.30 Diverticulosis of large intestine without perforation or abscess without bleeding
CPT/HCPCS: 96361; 85025; 81001; 36415; 81025; 83690; 80053; 74177; 96375; 96372; 96374; 99284; Q9967; J2550; J2765; J2405; J7030 ×2; J1171

== ENCOUNTER 2025-04-28 20:35 | Emergency (ER) | payer OTHER ==
[2025-04-28] MEDS ORDERED: NA CHLORIDE 0.9% 1,000 ML ONE ×2 (20:58→23:16)
[2025-04-28] MEDS ORDERED: ONDANSETRON 4 MG/2 ML VIAL ONE (20:58)
[2025-04-28 21:48] LABS: Absolute Lymphocytes (CBC) 2.9 K/uL (0.7-4.9); Hematocrit 37.4 % (36.0-45.0); Hemoglobin 13.4 g/dL (12.0-15.0); MCH 29.5 pg (27.0-35.0); MCHC 35.9 g/dL (32.0-36.0); MCV 82.2 fL (80-100); MPV 8.0 fL (7.6-11.3); Nucleated RBC Absolute Count 0.0 (0-0); Nucleated Red Blood Cells % 0.2 % (0-0); RBC Red Blood Cell Count 4.54 M/uL (3.86-4.86); White Blood Count 5.90 thou/uL (4.3-10.9)
[2025-04-28 22:02] LABS: Anion Gap 16.9 mEq/L (5.0-15.0); BUN Blood Urea Nitrogen 25.0 mg/dL (7-18); C-Reactive Protein 3.91 mg/L (<3.00); Potassium 3.9 mEq/L (3.5-5.1)
[2025-04-28 22:03] LABS: Glucose Level 489.0 mg/dL (74-106)
[2025-04-28] MEDS ORDERED: INSULIN REGULAR (HUMAN) 100 UNIT/ML ONE ×2 (22:10→23:15)
--- NOTE | 2025-04-28 22:47 | RAD REPORT ---
EXAMINATION: XR Foot Right 3 View CLINICAL INDICATION: Female, 45 years old. [facility] MAIN PAIN Bed Name: TECHNIQUE: 3 view radiographs of the left foot were obtained. COMPARISON: 09/17/2013. FINDINGS: No evidence of fracture or dislocation. Normal alignment. Mild degenerative changes. Progre ssive irregularity along the medial aspect of the navicular, could relate to chronic sequelae of tibialis posterior tendinosis. Small calcaneal spur. Soft tissues are unremarkable. No significant de generative changes. IMPRESSION: No acute or significant abnormalities. Chronic findings as above.
[2025-04-28] MEDS ORDERED: FENTANYL CITR 100 MCG/2 ML ONE (23:15)
--- NOTE | 2025-04-29 00:22 | EDPHYS ---
Physician Documentation [facility] Name: Valentina Franco Age: 45 yrs Sex: Female : 1980 Arrival Date: 04/28/2025 Time: 20:35 Bed 10 Private MD: ED Physician Maninder Ferris HPI: 04/29 01:25 This 45 yrs old Female presents to ER via Wheelchair with complaints of Foot sb4 Pain - Right. 01:26 Patient reports worsening pain in her right foot for a week now, although states she sb4 has been dealing with it for quite some time. Has already seen Ortho, has not been given any diagnosis solutions. She denies any injury. Additionally, states that her blood sugar has been running very high, her PCP has been trying to get it under control. She does have an appointment with an slot router coming up. States she has been taking Tylenol and gabapentin for her pain without significant relief in symptoms. Historical: - Allergies: 04/28 20:55 No Known Allergies; ha1 - PMHx: 20:55 Anxiety; Atrial fibrillation; CVA (Unknown); Depression; diabetes mellitus; High ha1 Cholesterol; Hypertensive disorder; Kidney stone; Pancreatitis; Sepsis; UTI; yeast infection; - PSHx: 20:55 section; Cholecystectomy; Heart ablation; Tonsillectomy; ha1 - Immunization history:: Adult Immunizations up to date. - Infectious Disease History:: Denies. - Social history:: Smoking status: Patient denies any tobacco usage or history of. ROS: 04/29 01:26 Constitutional: Negative for fever, chills, and weight loss, sb4 MS/extremity: Positive for pain, tenderness, of the right foot, All other systems are negative, Exam: 01:31 Head/Face: Normocephalic, atraumatic. Eyes: Extra-ocular motions intact. Periorbital sb4 areas with no swelling, redness, or edema. ENT: Mucous membranes moist. Cardiovascular: Regular rate and rhythm with a normal S1 and S2. Respiratory: No increased work of breathing, no retractions or nasal flaring. Abdomen/GI: Soft, non-tender, no distension. Skin: Warm, dry with normal turgor. Normal color with no rashes, no lesions, and no evidence of cellulitis. 01:31 Constitutional: The patient appears in no acute distress, alert, awake, obese, 01:31 Musculoskeletal/extremity: Weight bearing: able to fully bear weight, limps, 01:31 Musculoskeletal/extremity: Circulation is intact in all extremities. Pulses: are normal with no appreciated deficits, Sensation intact. Diffuse tender to palpation right foot. 01:31 Skin: cellulitis, is not appreciated, Vital Signs: 04/28 20:42 BP 148 / 83; Pulse 99; Resp 18 S; Temp 98.3(O); Pulse Ox 99% on R/A; Weight 132.45 kg; ha1 Height 5 ft. 4 in. ; Pain 9/10; 21:20 BP 138 / 68; Pulse 100; Resp 18; Pulse Ox 96% ; rg5 22:10 BP 136 / 87; Pulse 97; Resp 18; Pulse Ox 97% ; rg5 23:39 BP 126 / 77; Pulse 85; Resp 18; Pulse Ox 96% ; rg5 20:42 Body Mass Index 50.12 (132.45 kg, 162.56 cm) ha1 20:42 Pain Scale: Adult ha1 MDM: 20:43 Medical Screening Exam initiated sb4 04/29 01:31 Differential diagnosis: tendonitis, cellulitis, DVT, stress fracture, neuropathy. Data sb4 reviewed: vital signs, nurses notes, lab test result(s), radiologic studies, and as a result, I will discharge patient. Care significantly affected by the following chronic conditions: Diabetes, Hypertension, Obesity. Counseling: I had a detailed discussion with the patient and/or guardian regarding the historical points, exam findings, and any diagnostic results supporting the discharge/admit diagnosis, lab results, radiology results, the need for outpatient follow up, a orthopedic surgeon, to return to the emergency department if symptoms worsen or persist or if there are any questions or concerns that arise at home. 04/28 20:51 Order name: CBC with Diff; Complete Time: 21:56 sb4 04/28 20:51 Order name: BMP; Complete Time: 22:04 sb4 04/28 20:51 Order name: CRP; Complete Time: 22:04 sb4 04/28 23:19 Order name: Glucose, Ancillary Testing; Complete Time: 23:20 EDMS 04/29 00:13 Order name: Glucose, Ancillary Testing; Complete Time: 00:13 EDMS 04/28 20:51 Order name: Foot Right 3 View XRAY; Complete Time: 22:50 sb4 04/28 20:51 Order name: Extremity Venous Uni Ltd sb4 04/28 20:51 Order name: IV Start; Complete Time: 21:27 sb4 04/29 00:25 Order name: Walking boot; Complete Time: 00:31 sb4 Administered Medications: 04/28 21:27 Drug: NS 0.9% IV 1000 ml IV at 1000 ml once; to be given as a bolus over 60 minutes rg5 Route: IV; Rate: 1000 ml; Site: left forearm; 22:35 Follow up: IV Status: Completed infusion; IV Intake: 1000ml rg5 21:27 Drug: [place] PO 10 mg-325 mg 1 tabs PO once Route: PO; rg5 21:39 Follow up: Response: No adverse reaction rg5 21:27 Drug: Ondansetron IVP 4 mg IVP once; over 2 minutes Route: IVP; Site: left forearm; rg5 21:39 Follow up: Response: No adverse reaction rg5 22:14 Drug: Insulin Regular Human IVP 10 units IVP once {Co-Signature: ha1 (Christen Perales rg5 RN).} Route: IVP; Site: left forearm; 23:03 Follow up: Response: No adverse reaction rg5 23:15 Drug: Insulin Regular Human Sub-Q 10 units Sub-Q once {Co-Signature: af3 (Monika Hannah5 RN).} Route: Sub-Q; Site: left lower abdomen; 04/29 00:08 Follow up: Response: No adverse reaction rg5 04/28 23:25 Drug: NS 0.9% IV 1000 ml IV at 1000 ml once; to be given as a bolus over 60 minutes rg5 Route: IV; Rate: 1000 ml; Site: left forearm; 04/29 00:31 Follow up: IV Status: Completed infusion; IV Intake: 1000ml rg5 04/28 23:25 Drug: fentaNYL (PF) IVP 50 mcg IVP once Route: IVP; Site: left forearm; rg5 04/29 00:07 Follow up: Response: No adverse reaction; Pain is decreased rg5 Point of Care Testing: Blood Glucose: 04/28 23:07 Blood Glucose: 380 mg/dL; rg5 Ranges: Critical Glucose Levels:Adult <50 mg/dl or >400 mg/dl <40 mg/dl or >180 mg/dl Disposition: 04/29 19:36 Co-signature as Attending Physician, Maninder Ferris MD I agree with the assessment sp4 and plan of care. I reviewed the patient's care provided by the Advanced Practice Provider and agree with the diagnosis and treatment plan. Disposition Summary: 04/29/25 00:21 Discharge Ordered Notes: Location: Home sb4 Problem: an ongoing problem sb4 Symptoms: have improved sb4 Condition: Stable sb4 Diagnosis - Pain in right foot sb4 - Tibialis posterior tendinosis sb4 - Type 2 diabetes mellitus with hyperglycemia sb4 Followup: sb4 - With: Rafy Gomez MD - When: As needed - Reason: Recheck today's complaints, Re-evaluation by your physician Discharge Instructions: - Discharge Summary Sheet sb4 - Hyperglycemia sb4 - Musculoskeletal Pain sb4 Forms: - Prescription Opioid Use sb4 - Patient Portal Instructions sb4 - Leadership Thank You Letter sb4 Prescriptions: - meloxicam 7.5 mg Oral tablet - take 1 tablet ORAL route daily; 10 tablet; Refills: 0, Product Selection sb4 Permitted - Cyclobenzaprine 10 mg Oral Tablet - take 1 tablet ORAL route every 8 hours As needed; 30 tablet; Refills: 0, sb4 Product Selection Permitted - Tylenol-Codeine #3 300mg-30mg Oral tablet - take 1 tablet ORAL route every 4 hours As needed; 16 tablet; Refills: 0, sb4 Product Selection Permitted Signatures: Dispatcher [employer] EDMS Christen Perales, RN RN ha1 Shanthi Valdez PA-C PA-C sb4 Maninder Ferris MD MD sp4 Victorino Rosenberg RN RN rg5 Christen Perales RN ha1 Monika Hannah RN af3 Corrections: (The following items were deleted from the chart) 04/28 20:52 20:52 CBC+H.LAB.BRZ ordered. EDMS EDMS 20:52 20:52 BASIC METABOLIC PANEL+C.LAB.BRZ ordered. EDMS EDMS 20:52 20:52 C-REACTIVE PROTEIN+C.LAB.BRZ ordered. EDMS EDMS
--- NOTE | 2025-04-29 00:22 | ER ---
Nurse's Notes [facility] Name: Valentina Franco Age: 45 yrs Sex: Female : 1980 Arrival Date: 04/28/2025 Time: 20:35 Bed 10 Private MD: Diagnosis: Pain in right foot;Tibialis posterior tendinosis;Type 2 diabetes mellitus with hyperglycemia Presentation: 04/28 20:42 Chief complaint: Patient states: SUDDEN ONSET OF PAIN AND SWELLING ON THE RIGHT FOOT. ha1 20:42 Coronavirus screen: Client denies travel out of the [place] in the last 14 days. Ebola ha1 Screen: No symptoms or risks identified at this time. Initial Sepsis Screen: Does the patient meet any 2 criteria? No. Patient's initial sepsis screen is negative. Does the patient have a suspected source of infection? No. Patient's initial sepsis screen is negative. Risk Assessment: Do you want to hurt yourself or someone else? Patient reports no desire to harm self or others. Onset of symptoms was April 28, 2025. 20:42 Method Of Arrival: Wheelchair ha1 20:42 Acuity: CYNTHIA 3 ha1 Triage Assessment: 20:55 General: Appears uncomfortable, Behavior is cooperative. Pain: Complains of pain in ha1 right foot Pain currently is 9 out of 10 on a pain scale. Neuro: Level of Consciousness is awake, alert, obeys commands, Oriented to person, place, time, situation. Cardiovascular: Capillary refill < 3 seconds Patient's skin is warm and dry. Respiratory: Airway is patent Respiratory effort is even, unlabored, Respiratory pattern is regular, symmetrical. Musculoskeletal: Circulation, motion, and sensation intact. Reports pain in right foot. Historical: - Allergies: 20:55 No Known Allergies; ha1 - PMHx: 20:55 Anxiety; Atrial fibrillation; CVA (Unknown); Depression; diabetes mellitus; High ha1 Cholesterol; Hypertensive disorder; Kidney stone; Pancreatitis; Sepsis; UTI; yeast infection; - PSHx: 20:55 section; Cholecystectomy; Heart ablation; Tonsillectomy; ha1 - Immunization history:: Adult Immunizations up to date. - Infectious Disease History:: Denies. - Social history:: Smoking status: Patient denies any tobacco usage or history of. Screenin:[facility] Fall Risk Assessment (Adult) History of falling in the last 3 months, rg5 including since admission No falls in past 3 months (0 pts) Confusion or Disorientation No (0 pts) Intoxicated or Sedated No (0 pts) Impaired Gait Yes (1 pt) Mobility Assist Device Used No (0 pt) Altered Elimination No (0 pt) Score/Fall Risk Level 0 - 2 = Low Risk Oriented to surroundings, Maintained a safe environment. Abuse screen: Denies threats or abuse. Nutritional screening: No deficits noted. Tuberculosis screening: No symptoms or risk factors identified. Assessment: 21:00 General: Appears in no apparent distress. uncomfortable. rg5 21:00 Pain: Complains of pain in right foot Quality of pain is described as aching. Neuro: rg5 Level of Consciousness is awake, alert, obeys commands. Cardiovascular: Patient's skin is warm and dry. Respiratory: Airway is patent. GI: No signs and/or symptoms were reported involving the gastrointestinal system. : No signs and/or symptoms were reported regarding the genitourinary system. EENT: No signs and/or symptoms were reported regarding the EENT system. Derm: Skin is intact, Skin is dry, Skin is normal. Musculoskeletal: Circulation, motion, and sensation intact. Range of motion: intact in all extremities. 22:02 Reassessment: No changes from previously documented assessment. Patient and/or family rg5 updated on plan of care and expected duration. Pain level reassessed. Patient is alert, oriented x 3, equal unlabored respirations, skin warm/dry/pink. 23:08 Reassessment: No changes from previously documented assessment. Patient and/or family rg5 updated on plan of care and expected duration. Pain level reassessed. Patient is alert, oriented x 3, equal unlabored respirations, skin warm/dry/pink. Vital Signs: 20:42 BP 148 / 83; Pulse 99; Resp 18 S; Temp 98.3(O); Pulse Ox 99% on R/A; Weight 132.45 kg; ha1 Height 5 ft. 4 in. ; Pain 9/10; 21:20 BP 138 / 68; Pulse 100; Resp 18; Pulse Ox 96% ; rg5 22:10 BP 136 / 87; Pulse 97; Resp 18; Pulse Ox 97% ; rg5 23:39 BP 126 / 77; Pulse 85; Resp 18; Pulse Ox 96% ; rg5 20:42 Body Mass Index 50.12 (132.45 kg, 162.56 cm) ha1 20:42 Pain Scale: Adult ha1 ED Course: 20:36 Patient arrived in ED. im 20:37 Shanthi Valdez PA-C is PHCP. sb4 20:37 Maninder Ferris MD is Attending Physician. sb4 20:55 Triage completed. ha1 20:55 Victorino Rosenberg, RN is Primary Nurse. rg5 21:00 Patient has correct armband on for positive identification. Bed in low position. Call rg5 light in reach. Side rails up X 1. Door closed. Noise minimized. 21:00 No provider procedures requiring assistance completed. rg5 22:20 Foot Right 3 View XRAY In Process Unspecified. EDMS 23:19 Extremity Venous Uni Ltd US In Process Unspecified. EDMS 04/29 00:20 Rafy Gomez MD is Referral Physician. sb4 00:39 IV discontinued, bleeding controlled, No redness/swelling at site. Pressure dressing rg5 applied. Administered Medications: 04/28 21:27 Drug: NS 0.9% IV 1000 ml IV at 1000 ml once; to be given as a bolus over 60 minutes rg5 Route: IV; Rate: 1000 ml; Site: left forearm; 22:35 Follow up: IV Status: Completed infusion; IV Intake: 1000ml rg5 21:27 Drug: [place] PO 10 mg-325 mg 1 tabs PO once Route: PO; rg5 21:39 Follow up: Response: No adverse reaction rg5 21:27 Drug: Ondansetron IVP 4 mg IVP once; over 2 minutes Route: IVP; Site: left forearm; rg5 21:39 Follow up: Response: No adverse reaction rg5 22:14 Drug: Insulin Regular Human IVP 10 units IVP once {Co-Signature: ha1 (Christen Perales5 RN).} Route: IVP; Site: left forearm; 23:03 Follow up: Response: No adverse reaction rg5 23:15 Drug: Insulin Regular Human Sub-Q 10 units Sub-Q once {Co-Signature: af3 (Monika Hannah5 RN).} Route: Sub-Q; Site: left lower abdomen; 04/29 00:08 Follow up: Response: No adverse reaction rg5 04/28 23:25 Drug: NS 0.9% IV 1000 ml IV at 1000 ml once; to be given as a bolus over 60 minutes rg5 Route: IV; Rate: 1000 ml; Site: left forearm; 04/29 00:31 Follow up: IV Status: Completed infusion; IV Intake: 1000ml rg5 04/28 23:25 Drug: fentaNYL (PF) IVP 50 mcg IVP once Route: IVP; Site: left forearm; rg5 04/29 00:07 Follow up: Response: No adverse reaction; Pain is decreased rg5 Medication: 04/28 21:00 VIS not applicable for this client. rg5 Point of Care Testing: Blood Glucose: 23:07 Blood Glucose: 380 mg/dL; rg5 Ranges: Intake: 22:35 IV: 1000ml; Total: 1000ml. rg5 04/29 00:31 IV: 1000ml; Total: 2000ml. rg5 Outcome: 00:21 Discharge ordered by MD. sb4 00:38 Discharged to home ambulatory, rg5 00:38 Condition: stable 00:38 Discharge instructions given to patient, Instructed on discharge instructions, follow up and referral plans. Demonstrated understanding of instructions, follow-up care, medications, Prescriptions given X 3, 00:41 Patient left the ED. rg5 Signatures: Dispatcher [employer] EDMS Christen Perales RN RN ha1 Shanthi Valdez PA-C PANakul sb4 Char Easley Rommel, RN RN rg5 Christen Perales RN ha1 Monika Hannah RN af3
[2025-04-29 07:09] VITALS: TEMP 98.3
[2025-04-29 07:13] VITALS: BP 126/77; O2SAT 96
--- NOTE | 2025-04-29 07:31 | RAD REPORT ---
EXAM: US Duplex Right Lower Extremity Veins CLINICAL HISTORY: The patient is 45 years old and is Female; PAIN TECHNIQUE: Real-time duplex ultrasound scan of the right lower extremity veins integrating B-mode two-dimensio nal vascular structure, Doppler spectral analysis, color flow Doppler imaging and compression. COMPARISON: No relevant prior studies available. FINDINGS: DEEP VEINS: Unremarkable. No DVT in the visualized common femoral, femoral, popliteal, posterio r tibial veins. The veins demonstrate normal color flow, are normally compressible, with normal phasic flow and/or augmentation response. SUPERFICIAL VEINS: Unremarkable. No thrombus in the visualized great saphenous vein. SOFT TISSUES: No acute findings. No popliteal cyst. IMPRESSION: Normal right lower extremity duplex venous ultrasound. Electronically signed by: [place] Ying MD 04/29/2025 12:34 AM CDT RP Due to temporary technical issues with the PACS/TotSpot reporting system, reports are being chhaya d by the in-house radiologist without review as a courtesy to ensure prompt reporting the interpreting radiologist is fully responsible for the content of the report Transcribed Date/Time: 04/29/2025 7:31 AM
== END 2025-04-29 00:41 | disposition home or self-care (01) ==
LOC: ER 20:35
DX: M76.821 Posterior tibial tendinitis, right leg (principal); E11.65 Type 2 diabetes mellitus with hyperglycemia
CPT/HCPCS: 96361; 85025; 80048; 36415; 82947 ×2; 86140; 73630; 93971; 96375; 96372; 96374; 99284; J3010; J2405; J1815 ×2; J7030 ×2

== ENCOUNTER 2025-05-06 05:27 | Emergency (ER) | payer OTHER ==
[2025-05-06] MEDS ORDERED: MECLIZINE HCL 12.5 MG TAB ONE (06:13)
[2025-05-06] MEDS ORDERED: ONDANSETRON 4 MG/2 ML VIAL ONE ×2 (06:13→08:15)
[2025-05-06 06:24] LABS: Absolute Lymphocytes (CBC) 2.5 K/uL (0.7-4.9); Hematocrit 39.2 % (36.0-45.0); Hemoglobin 13.2 g/dL (12.0-15.0); MCH 27.5 pg (27.0-35.0); MCHC 33.6 g/dL (32.0-36.0); MCV 81.7 fL (80-100); MPV 7.6 fL (7.6-11.3); Nucleated RBC Absolute Count 0.0 (0-0); Nucleated Red Blood Cells % 0.1 % (0-0); RBC Red Blood Cell Count 4.79 M/uL (3.86-4.86); White Blood Count 5.00 thou/uL (4.3-10.9)
[2025-05-06 07:43] LABS: ALT/SGPT 78 U/L (13-56); Albumin 3.9 g/dL (3.4-5.0); Albumin/Globulin Ratio 0.9 (1.1-1.8); Alkaline Phosphatase 56 U/L (45-117); Anion Gap 14.3 mEq/L (5.0-15.0); BUN Blood Urea Nitrogen 20 mg/dL (7-18); Globulin 4.4 g/dL (2.3-3.5); Glucose Level 367 mg/dL (74-106); Lipase 170 U/L (13-75); Troponin High Sensitivity 3.2 pg/mL (<58.9)
[2025-05-06 07:45] LABS: AST/SGOT 68 U/L (15-37); Bilirubin Indirect, Calculated 0.1 mg/dL (0.2-0.8); Potassium 4.3 mEq/L (3.5-5.1)
[2025-05-06] MEDS ORDERED: NA CHLORIDE 0.9% 1,000 ML ONE (08:16)
[2025-05-06] MEDS ORDERED: FENTANYL CITR 100 MCG/2 ML ONE (08:16)
[2025-05-06] MEDS ORDERED: PROMETHAZINE INJ 25 MG/ML AMP ONE (09:17)
--- NOTE | 2025-05-06 09:23 | RAD REPORT ---
EXAM: CT brain without contrast HISTORY: Dizziness COMPARISON: February 2025 TECHNIQUE: Multiple contiguous axial images were obtained and a CT of the brain without contrast.. Sagittal and coronal reconstruction performed. Automated exposure control, adjustment of the mA and/or kV according to patient size, and/or iterative reconstruction. Unless otherwise specified, incidental f indings do not require dedicated imaging follow-up FINDINGS: An intracranial bleed is not seen Ventricles are normal caliber No extra-axial fluid collection noted No significant hypodensity within the brain No fluid within the visualized sinuses or mastoids noted. IMPRESSION: No acute intracranial abnormality noted. If the patient continues to have symptoms to suggest an acute intracranial abnormality then MRI of th e brain would be recommended.
[2025-05-06 09:41] LABS: HDL Cholesterol 27 mg/dL (40-60)
--- NOTE | 2025-05-06 10:10 | RAD REPORT ---
EXAMINATION: CT ABDOMEN AND PELVIS WITH CONTRAST CLINICAL INDICATION: Abdominal pain TECHNIQUE: CT abdomen and pelvis was performed, after the administration of 100 cc Isovue-300.. Sagit steve and coronal reconstructions were obtained. One or more of the following dose reduction techniques were used: Automated exposure control, adjustment of the mA and kV according to patient si ze, and iterative reconstruction. Unless otherwise specified, incidental findings do not require dedicated imaging follow-up. [id number]. Oral contrast was not given which limits evaluation of bowel and appendix. COMPARISON: .March 2025 FINDINGS: Liver is enlarged. Fatty infiltration. Cholecystectomy. The spleen pancreas, and adrenals appear unremarkable. There is cortical thinning within the kidneys may be related to prior inflammation. Tiny nonobstructing calculus No evidence of diverticulitis. Normal appendix. No adnexal mass. Small fatty structures within the posterior subcutaneous tissues may represent injection granulomas. : IMPRESSION: Hepatomegaly with fatty infiltration
--- NOTE | 2025-05-06 10:25 | ER ---
Nurse's Notes [facility] Name: Valentina Franco Age: 45 yrs Sex: Female : 1980 Arrival Date: 05/06/2025 Time: 05:27 Bed 14 Private MD: Diagnosis: Other chronic pancreatitis;Vomiting, unspecified;Dizziness and giddiness Presentation: 05/06 05:36 Chief complaint: Patient states: PT STATES SHE WOKE UP AT 3AM WITH DIZZINESS, LEFT EAR br2 RINGING, LEFT ARM HEAVY, TINGLING TO LEFT FACE AND ABDOMINAL PAIN. Coronavirus screen: Client denies travel out of the [place] in the last 14 days. Ebola Screen: Patient denies exposure to infectious person. Initial Sepsis Screen: Does the patient meet any 2 criteria? No. Patient's initial sepsis screen is negative. Does the patient have a suspected source of infection? No. Patient's initial sepsis screen is negative. Risk Assessment: Do you want to hurt yourself or someone else? Patient reports no desire to harm self or others. Onset of symptoms was May 06, 2025 at 03:00. 05:36 Method Of Arrival: Wheelchair br2 05:36 Acuity: CYNTHIA 3 br2 Triage Assessment: 05:39 General: Appears uncomfortable, Behavior is calm, cooperative. Pain: Complains of pain br2 in head, abdomen and left arm Pain currently is 9 out of 10 on a pain scale. GI: Reports lower abdominal pain, upper abdominal pain, nausea, vomiting. 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 - Infectious Disease History:: Denies. - Social history:: Smoking status: Patient denies any tobacco usage or history of. Patient uses alcohol, occasionally. Patient/guardian denies using street drugs. Screenin:45 [facility] ED Fall Risk Assessment (Adult) History of falling in the last 3 months, nh2 including since admission No falls in past 3 months (0 pts) Confusion or Disorientation No (0 pts) Intoxicated or Sedated No (0 pts) Impaired Gait No (0 pts) Mobility Assist Device Used No (0 pt) Altered Elimination No (0 pt) Score/Fall Risk Level 0 - 2 = Low Risk Oriented to surroundings, Maintained a safe environment, Educated pt \\T\\ family on fall prevention, incl call for assistance when getting out of bed, Assessed \\T\\ reinforced patient's understanding of fall precautions. Abuse screen: Denies threats or abuse. Denies injuries from another. Nutritional screening: No deficits noted. Tuberculosis screening: No symptoms or risk factors identified. Assessment: 05:47 General: Appears distressed, uncomfortable, Behavior is cooperative, anxious, restless. nh2 Pain: Complains of pain in left arm and abdomen and head Pain currently is 9 out of 10 on a pain scale. Quality of pain is described as aching, numb, Pain began 2 hours ago. Is continuous. Neuro: Level of Consciousness is awake, alert, obeys commands, Oriented to person, place, time, situation, Appropriate for age Reports dizziness, headache. Cardiovascular: Denies chest pain, Heart tones S1 S2 present Patient's skin is warm and dry. Rhythm is sinus rhythm. Respiratory: Respiratory effort is even, unlabored, Respiratory pattern is regular, symmetrical, Breath sounds are clear bilaterally. Denies shortness of breath. GI: Abdomen is round obese, Reports nausea. : No signs and/or symptoms were reported regarding the genitourinary system. EENT: Reports ringing in both ears. Derm: Skin is intact, Skin is pink, warm \\T\\ dry. Musculoskeletal: Circulation, motion, and sensation intact. Reports numbness in left arm. 06:35 Reassessment: Patient and/or family updated on plan of care and expected duration. Pain nh2 level reassessed. Patient is alert, oriented x 3, equal unlabored respirations, skin warm/dry/pink. Patient states feeling better. 07:41 Reassessment: Patient and/or family updated on plan of care and expected duration. Pain kb4 level reassessed. Patient is alert, oriented x 3, equal unlabored respirations, skin warm/dry/pink. General: Appears in no apparent distress. comfortable, Behavior is calm. 07:50 Reassessment: Pt ambulatory to restroom, c/o nausea and dizziness, MD was notified. . aa5 07:50 Reassessment: Patient is alert, oriented x 3, equal unlabored respirations, skin aa5 warm/dry/pink. 08:07 Reassessment: MD at bedside . aa5 08:58 Reassessment: Patient and/or family updated on plan of care and expected duration. Pain kb4 level reassessed. Patient is alert, oriented x 3, equal unlabored respirations, skin warm/dry/pink. 08:59 Reassessment: pain improved with med interventions. kb4 08:59 Reassessment: pain improved with med interventions. kb4 09:12 Reassessment: c/o more nausea pt states "jimmy isnt working for me" , MD notified. kb4 10:29 Reassessment: Patient and/or family updated on plan of care and expected duration. Pain kb4 level reassessed. Patient is alert, oriented x 3, equal unlabored respirations, skin warm/dry/pink. PT STILL COMPLAINING OF NOT FEELING 100% BETTER BUT IS UNDERSTANDING OF IT TAKING TIME TO FEEL 100% BETTER. Vital Signs: 05:36 BP 142 / 89; Pulse 86; Resp 18; Temp 97.1; Pulse Ox 92% on R/A; Weight 99.34 kg; Height br2 5 ft. 4 in. ; Pain 9/10; 05:50 BP 128 / 92; Pulse 74; Resp 18; Temp 98.4(O); Pulse Ox 96% on R/A; nh2 06:35 BP 106 / 63; Pulse 71; Resp 19; Pulse Ox 96% on R/A; nh2 07:55 BP 128 / 80; Pulse 70; Resp 18; Pulse Ox 99% on R/A; kb4 08:57 BP 121 / 77; Pulse 78; Resp 16; Pulse Ox 99% on R/A; kb4 10:28 BP 121 / 77; Pulse 78; Resp 18; Pulse Ox 95% on R/A; kb4 05:36 Body Mass Index 37.59 (99.34 kg, 162.56 cm) br2 05:36 Pain Scale: Adult br2 ED Course: 05:34 Patient arrived in ED. vc1 05:35 Shireen Hurst MD is Attending Physician. sp3 05:39 Triage completed. br2 05:39 Arm band placed on right wrist. br2 05:42 Al Esposito Jr, RN is Primary Nurse. nh2 05:47 Patient has correct armband on for positive identification. Bed in low position. Call nh2 light in reach. Side rails up X 1. Provided Education on: using call light for assistance. 05:47 No provider procedures requiring assistance completed. nh2 06:12 Inserted saline lock: 20 gauge in left antecubital area, using aseptic technique. Blood nh2 collected. Flushed with 10 mL NS. 07:02 Attending Physician role handed off by Shireen Hurst MD rn 07:02 Tiburcio Linder MD is Attending Physician. rn 09:04 CT Abd/Pelvis - IV Contrast Only In Process Unspecified. EDMS 09:04 Head Brain Wo Cont In Process Unspecified. EDMS 10:37 IV discontinued, intact, bleeding controlled, No redness/swelling at site. Pressure kb4 dressing applied. Administered Medications: 06:20 Drug: Meclizine PO 25 mg PO once Route: PO; nh2 06:39 Follow up: Response: No adverse reaction nh2 06:20 Drug: Ondansetron IVP 4 mg IVP once; over 2 minutes Route: IVP; Site: left antecubital; nh2 06:40 Follow up: Response: No adverse reaction; Nausea is decreased nh2 08:23 Drug: NS 0.9% IV 1000 ml IV at 1000 ml once; to be given as a bolus over 60 minutes kb4 Route: IV; Rate: 1000 ml; Site: left antecubital; 08:23 Drug: Ondansetron IVP 4 mg IVP once; over 2 minutes Route: IVP; Site: left antecubital; kb4 08:35 Follow up: Response: No adverse reaction kb4 08:24 Drug: fentaNYL (PF) IVP 50 mcg IVP once Route: IVP; Site: left antecubital; kb4 08:35 Follow up: Response: No adverse reaction kb4 09:31 Drug: Promethazine IM 12.5 mg IM once Route: IM; Site: right deltoid; kb4 10:30 Follow up: Response: No adverse reaction kb4 Medication: 05:47 VIS not applicable for this client. nh2 Outcome: 10:25 Discharge ordered by . rn 10:37 Discharged to home ambulatory, kb4 10:37 Condition: good 10:37 Discharge instructions given to patient, Instructed on discharge instructions, follow up and referral plans. Demonstrated understanding of instructions, follow-up care, 10:37 Patient left the ED. kb4 Signatures: Dispatcher [employer] EDMS Tiburcio Linder MD MD rn Calderon, Audri RN RN aa5 Shireen Hurst MD MD sp3 Chelly Macias RN RN vc1 Argentina Negro RN RN br2 Al Esposito Jr, RN RN nh2 Shea Zayas RN RN kb4 Corrections: (The following items were deleted from the chart) 05:55 05:47 EENT: No signs and/or symptoms were reported regarding the EENT system. nh2 nh2 05/07 03:28 05/06 05:47 Neuro: Level of Consciousness is awake, alert, obeys commands, Oriented to nh2 person, place, time, situation, Appropriate for age Reports headache nh2 05/07 04:27 05/06 05:47 Inserted saline lock: 20 gauge in left antecubital area, using aseptic nh2 technique. Blood collected. Flushed with 10 mL NS nh2
--- NOTE | 2025-05-06 10:26 | EDPHYS ---
Physician Documentation [facility] Name: Valentina Franco Age: 45 yrs Sex: Female : 1980 Arrival Date: 05/06/2025 Time: 05:27 Bed 14 Private MD: ED Physician Tiburcio Linder HPI: 05/06 06:23 This 45 yrs old Female presents to ER via Wheelchair with complaints of sp3 Dizziness, Numbness Of Arm. 06:23 45-year-old female with history of anxiety, atrial fibrillation, depression, diabetes, sp3 hyperlipidemia and critical triglyceride levels in the past presents to the ED with chief complaints of nausea, 1 episode of vomiting and "the room spinning when she woke up. No prior history of vertigo. She describes very specific vertiginous room spinning description. She denies any headache, fever, injury or trauma, neck pain, chest pain, shortness of breath, diarrhea, abdominal pain, back pain, extremity numbness or tingling or weakness, or any other signs or symptoms on ROS at this time. Patient has had multiple visits to the ER and she is well-known.. 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 - Infectious Disease History:: Denies. - Social history:: Smoking status: Patient denies any tobacco usage or history of. Patient uses alcohol, occasionally. Patient/guardian denies using street drugs. ROS: 06:27 Constitutional: Negative for fever, chills, and weight loss, Eyes: Negative for injury, sp3 pain, redness, and discharge, ENT: Negative for injury, pain, and discharge, Neck: Negative for injury, pain, and swelling, Cardiovascular: Negative for chest pain, palpitations, and edema, Respiratory: Negative for shortness of breath, cough, wheezing, and pleuritic chest pain, Back: Negative for injury and pain, : Negative for injury, bleeding, discharge, and swelling, MS/Extremity: Negative for injury and deformity, Skin: Negative for injury, rash, and discoloration, Psych: Negative for depression, anxiety, suicide ideation, homicidal ideation, and hallucinations, Allergy/Immunology: Negative for hives, rash, and allergies, Endocrine: Negative for neck swelling, polydipsia, polyuria, polyphagia, and marked weight changes, Hematologic/Lymphatic: Negative for swollen nodes, abnormal bleeding, and unusual bruising, 06:27 All other systems are negative, Exam: 06:28 Constitutional: This is a well developed, well nourished patient who is awake, alert, sp3 and in no acute distress. Head/Face: Normocephalic, atraumatic. Eyes: Pupils equal round and reactive to light, extra-ocular motions intact. Lids and lashes normal. Conjunctiva and sclera are non-icteric and not injected. Cornea within normal limits. Periorbital areas with no swelling, redness, or edema. ENT: Nares patent. No nasal discharge, no septal abnormalities noted. External auditory canals are clear. Oropharynx with no redness, swelling, or masses, exudates, or evidence of obstruction, uvula midline. Mucous membranes moist. Neck: Trachea midline, no thyromegaly or masses palpated, and no cervical lymphadenopathy. Supple, full range of motion without nuchal rigidity, or vertebral point tenderness. No Meningismus. Chest/axilla: Normal chest wall appearance and motion. Nontender with no deformity. No lesions are appreciated. Cardiovascular: Regular rate and rhythm with a normal S1 and S2. No gallops, murmurs, or rubs. Normal PMI, no JVD. No pulse deficits. Respiratory: Lungs have equal breath sounds bilaterally, clear to auscultation and percussion. No rales, rhonchi or wheezes noted. No increased work of breathing, no retractions or nasal flaring. Back: No spinal tenderness. No costovertebral tenderness. Full range of motion. Skin: Warm, dry with normal turgor. Normal color with no rashes, no lesions, and no evidence of cellulitis. MS/ Extremity: Pulses equal, no cyanosis. Neurovascular intact. Full, normal range of motion. Neuro: Awake and alert, GCS 15, oriented to person, place, time, and situation. Cranial nerves II-XII grossly intact. Motor strength 5/5 in all extremities. Sensory grossly intact. Cerebellar exam normal. Normal gait. Psych: Awake, alert, with orientation to person, place and time. Behavior, mood, and affect are within normal limits. 06:28 Abdomen/GI: Benign abdomen and very mild pain epigastrically. No peritoneal signs, rebound or guarding. Vital signs are normal. Patient is resting comfortably asleep., 06:33 ECG was reviewed by the Attending Physician. EKG demonstrates normal sinus rhythm at 80 sp3 bpm with QTc 458, right bundle branch block and nonspecific diffuse ST/T changes without evidence of acute ischemia. Vital Signs: 05:36 BP 142 / 89; Pulse 86; Resp 18; Temp 97.1; Pulse Ox 92% on R/A; Weight 99.34 kg; Height br2 5 ft. 4 in. ; Pain 9/10; 05:50 BP 128 / 92; Pulse 74; Resp 18; Temp 98.4(O); Pulse Ox 96% on R/A; nh2 06:35 BP 106 / 63; Pulse 71; Resp 19; Pulse Ox 96% on R/A; nh2 07:55 BP 128 / 80; Pulse 70; Resp 18; Pulse Ox 99% on R/A; kb4 08:57 BP 121 / 77; Pulse 78; Resp 16; Pulse Ox 99% on R/A; kb4 10:28 BP 121 / 77; Pulse 78; Resp 18; Pulse Ox 95% on R/A; kb4 05:36 Body Mass Index 37.59 (99.34 kg, 162.56 cm) br2 05:36 Pain Scale: Adult br2 MDM: 05:45 Medical Screening Exam initiated sp3 06:28 Data reviewed: vital signs, nurses notes, old medical records, lab test result(s), EKG. sp3 ED course: 45-year-old female with vertigo and nausea. Differential diagnosis includes benign positional vertigo, labyrinthitis, other viral illness and gastritis and pancreatitis from an abdominal standpoint. Will obtain routine labs and have already administered meclizine. Ondansetron 4 nausea control. If workup negative consider discharge on p.o. meclizine and follow-up with PCP. Patient will be signed out to day physician for final reevaluation and disposition.. 10:21 Differential diagnosis: generalized weakness, hypovolemia, idiopathic dizziness, rn near-syncope, Pancreatitis, enteritis, gastritis, dehydration, vertigo. Consideration of Admission/Observation Escalation of care including admission/observation considered. Escalation considered but CT imaging does not show acute pancreatitis and patient ended up feeling much better and request to go home. Patient states has dealt with this several times, has had chronic pancreatitis and has pain and nausea medication at home.. Independent interpretation of the following test(s) in the Emergency Department CT Scan: My interpretation is CT head images negative for acute hemorrhage per my interpretation. clinical research monitor: rate is 75 beats/min, Rhythm is normal sinus rhythm, regular, with no ectopy, Interpretation: normal rate, normal rhythm. Care significantly affected by the following chronic conditions: Anxiety, chronic pancreatitis, diabetes, hypertriglyceridemia. Counseling: I had a detailed discussion with the patient and/or guardian regarding the historical points, exam findings, and any diagnostic results supporting the discharge/admit diagnosis, lab results, radiology results, the need for outpatient follow up, to return to the emergency department if symptoms worsen or persist or if there are any questions or concerns that arise at home. Response to treatment: the patient's symptoms have markedly improved after treatment, and as a result, I will discharge patient. Special discussion: I discussed with the patient/guardian in detail that at this point there is no indication for admission to the hospital. It is understood, however, that if the symptoms persist or worsen the patient needs to return immediately for re-evaluation. Based on the history and exam findings, there is no indication for further emergent testing or inpatient evaluation. I discussed with the patient/guardian the need to see the primary care provider for further evaluation of the symptoms. 05/06 06:11 Order name: Basic Metabolic Panel; Complete Time: 07:55 sp3 05/06 06:11 Order name: CBC with Diff; Complete Time: 07:55 sp3 05/06 06:11 Order name: LFT's; Complete Time: 07:55 sp3 05/06 06:11 Order name: Troponin HS; Complete Time: 07:55 sp3 05/06 06:11 Order name: Lipase; Complete Time: 07:55 sp3 05/06 08:59 Order name: Lipid Profile; Complete Time: 10:08 rn 05/06 09:45 Order name: LDL, Direct; Complete Time: 10:08 EDMS 05/06 08:09 Order name: CT Abd/Pelvis - IV Contrast Only; Complete Time: 10:14 rn 05/06 08:56 Order name: Head Brain Wo Cont; Complete Time: 09:44 EDMS 05/06 06:11 Order name: EKG; Complete Time: 06:12 sp3 05/06 06:11 Order name: Cardiac monitoring; Complete Time: 06:11 sp3 05/06 06:11 Order name: EKG - Nurse/Tech; Complete Time: 06:11 sp3 05/06 06:11 Order name: IV Saline Lock; Complete Time: 06:12 sp3 05/06 06:11 Order name: Labs collected and sent; Complete Time: 06:12 sp3 05/06 06:11 Order name: O2 Sat Monitoring; Complete Time: 06:12 sp3 Administered Medications: 06:20 Drug: Meclizine PO 25 mg PO once Route: PO; nh2 06:39 Follow up: Response: No adverse reaction nh2 06:20 Drug: Ondansetron IVP 4 mg IVP once; over 2 minutes Route: IVP; Site: left antecubital; nh2 06:40 Follow up: Response: No adverse reaction; Nausea is decreased nh2 08:23 Drug: NS 0.9% IV 1000 ml IV at 1000 ml once; to be given as a bolus over 60 minutes kb4 Route: IV; Rate: 1000 ml; Site: left antecubital; 08:23 Drug: Ondansetron IVP 4 mg IVP once; over 2 minutes Route: IVP; Site: left antecubital; kb4 08:35 Follow up: Response: No adverse reaction kb4 08:24 Drug: fentaNYL (PF) IVP 50 mcg IVP once Route: IVP; Site: left antecubital; kb4 08:35 Follow up: Response: No adverse reaction kb4 09:31 Drug: Promethazine IM 12.5 mg IM once Route: IM; Site: right deltoid; kb4 10:30 Follow up: Response: No adverse reaction kb4 Disposition Summary: 05/06/25 10:25 Discharge Ordered Notes: Location: Home rn Problem: new rn Symptoms: have improved rn Condition: Stable rn Diagnosis - Other chronic pancreatitis rn - Vomiting, unspecified rn - Dizziness and giddiness rn Followup: rn - With: Private Physician - When: As needed - Reason: Recheck today's complaints, Re-evaluation by your physician Discharge Instructions: - Discharge Summary Sheet rn - Chronic Pancreatitis rn Forms: - Medication Reconciliation Form rn - 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 EDLA EDMS
[2025-05-06 10:51] VITALS: TEMP 98.4
[2025-05-06 11:00] VITALS: BP 121/77
[2025-05-06 11:01] VITALS: O2SAT 95
== END 2025-05-06 10:37 | disposition home or self-care (01) ==
LOC: ER 05:27
DX: K86.1 Other chronic pancreatitis (principal); R11.2 Nausea with vomiting, unspecified; R42 Dizziness and giddiness; F41.9 Anxiety disorder, unspecified; E11.9 Type 2 diabetes mellitus without complications; E78.5 Hyperlipidemia, unspecified; I48.11 Longstanding persistent atrial fibrillation
CPT/HCPCS: 93005; 85025; 80048; 36415; 83721; 80061; 80076; 84484; 83690; 70450; 74177; 96375; 96372; 96374; 99284; Q9967; J2550; J8597; J3010; J2405 ×2; J7030